=== PATIENT | female | born 1945 | race Caucasian/White ===

== ENCOUNTER 2023-08-23 06:52 | Outpatient (REF) | payer MEDICARE, SELFPAY ==
[2023-08-23 09:49] LABS: Alanine Aminotransferase 23 U/L (14-59); Albumin Globulin Ratio 0.3; Albumin Level 1.7 g/dL (3.4-5.0); Alkaline Phosphatase 83 U/L (46-116); Anion Gap 14.5; Aspartate Amino Transferase 25 U/L (15-37); Bilirubin Total 0.3 mg/dL (0.2-1.0); Calcium 8.8 mg/dL (8.5-10.1); Carbon Dioxide 24.8 mmol/L (21.0-32.0); Chloride 104 mmol/L (98-107); Estimated GFR (African America 29 (>=60); Estimated GFR (Non-African Ame 24 (>=60); Globulin 4.9 g/dL; Glucose 88 mg/dL (74-106); Potassium 3.3 mmol/L (3.5-5.1); Sodium 140 mmol/L (136-145); Total Protein 6.6 g/dL (6.4-8.2)
[2023-08-23 11:20] LABS: Basophils Absolute Auto 0.1 10^3/uL (0.0-0.1); Basophils Percent Auto 0.4 % (0.2-2.0); Eosinophils Absolute Auto 0.2 10^3/uL (0.0-0.7); Eosinophils Percent Auto 0.8 % (0.9-7.0); Hematocrit 33.5 % (36.0-48.0); Hemoglobin 9.8 g/dL (12.0-16.0); Immature Granulocytes Abs Auto 0.36 10^3/uL (0.00-0.03); Immature Granulocytes Pct Auto 1.8 % (0.0-0.5); Lymphocytes Percent Auto 14.7 % (20.5-60.0); Mean Corpuscular HGB Conc 29.3 g/dL (29.9-35.2); Mean Corpuscular Hemoglobin 27.5 pg (26.7-34.0); Mean Corpuscular Volume 93.8 fL (81.0-99.0); Mean Platelet Volume 10.6 fL (9.5-13.5); Monocytes Absolute Auto 1.5 10^3/uL (0.3-0.8); Monocytes Percent Auto 7.2 % (1.7-12.0); Neutrophils Absolute Auto 15.3 10^3/uL (1.4-6.5); Neutrophils Percent Auto 75.1 % (43.0-75.0); Platelet Count 369 10^3/uL (150-450); Red Blood Count 3.57 10^6/uL (4.20-5.40); Red Cell Distribution Width 16.7 % (11.0-15.0); White Blood Count 20.4 10^3/uL (4.0-11.0)
== END 2023-08-23 06:53 | disposition home or self-care (01) ==
LOC: LAB 06:52
PROVIDERS: Visit Provider Family Medicine
DX: D64.9 Anemia, unspecified (principal); I10 Essential (primary) hypertension
CPT/HCPCS: 36415; 80053; 85025

== ENCOUNTER 2023-08-26 00:56 | Outpatient (REF) | payer MEDICARE, SELFPAY ==
[2023-08-26 07:56] LABS: Basophils Absolute Auto 0.1 10^3/uL (0.0-0.1); Basophils Percent Auto 0.6 % (0.2-2.0); Eosinophils Absolute Auto 0.1 10^3/uL (0.0-0.7); Eosinophils Percent Auto 0.7 % (0.9-7.0); Hemoglobin 9.5 g/dL (12.0-16.0); Immature Granulocytes Abs Auto 0.45 10^3/uL (0.00-0.03); Immature Granulocytes Pct Auto 3.2 % (0.0-0.5); Lymphocytes Absolute Auto 2.9 10^3/uL (1.2-3.8); Lymphocytes Percent Auto 20.1 % (20.5-60.0); Mean Corpuscular HGB Conc 31.7 g/dL (29.9-35.2); Mean Corpuscular Hemoglobin 27.6 pg (26.7-34.0); Mean Corpuscular Volume 87.2 fL (81.0-99.0); Mean Platelet Volume 9.9 fL (9.5-13.5); Monocytes Absolute Auto 1.4 10^3/uL (0.3-0.8); Monocytes Percent Auto 9.5 % (1.7-12.0); Neutrophils Absolute Auto 9.4 10^3/uL (1.4-6.5); Neutrophils Percent Auto 65.9 % (43.0-75.0); Platelet Count 425 10^3/uL (150-450); Red Blood Count 3.44 10^6/uL (4.20-5.40); White Blood Count 14.2 10^3/uL (4.0-11.0)
[2023-08-26 08:29] LABS: Alanine Aminotransferase 17 U/L (14-59); Albumin Globulin Ratio 0.3; Albumin Level 1.7 g/dL (3.4-5.0); Alkaline Phosphatase 88 U/L (46-116); Anion Gap 13.4; Aspartate Amino Transferase 19 U/L (15-37); BUN Creatinine Ratio 17.8; Bilirubin Total 0.4 mg/dL (0.2-1.0); Calcium 8.3 mg/dL (8.5-10.1); Carbon Dioxide 25.9 mmol/L (21.0-32.0); Chloride 104 mmol/L (98-107); Estimated GFR (African America 46 (>=60); Estimated GFR (Non-African Ame 38 (>=60); Glucose 77 mg/dL (74-106); Potassium 4.3 mmol/L (3.5-5.1); Sodium 139 mmol/L (136-145); Total Protein 6.7 g/dL (6.4-8.2)
== END 2023-08-26 00:57 | disposition home or self-care (01) ==
LOC: LAB 00:56
PROVIDERS: Visit Provider Family Medicine
DX: N18.30 Chronic kidney disease, stage 3 unspecified (principal)
CPT/HCPCS: 36415; 80053; 85025

== ENCOUNTER 2023-08-28 10:59 | Inpatient (IN) | payer MEDICARE, SELFPAY ==
[2023-08-28] VITALS (59 sets, daily range): BP systolic 82–116; BP diastolic 44–97; PULSE 98–143; RESP 14–34; TEMP 36.5–37; O2SAT 66–98; BMI 33.2
--- NOTE | 2023-08-28 11:09 | XR_ITS ---
The [address] [address] Patient Name: GERA PERDUE MRN: [id number] date: 1945 Sex: F Assigned Patient Location: ER Current Patient Location: ER Accession/Order Number: [id number] Exam Date: 08/28/2023 11:14 Report Date: 08/28/2023 11:41 At the request of: EUGENIA STANLEY Procedure: XR chest 1V EXAMINATION: XR chest 1V HISTORY: hypotension COMPARISON: No relevant comparison available. TECHNIQUE: AP portable FINDINGS: LUNGS: No significant pulmonary parenchymal abnormalities. VASCULATURE: No increased pulmonary vasculature. PLEURA: No pneumothorax, effusion, or pleural thickening. CARDIAC: No cardiomegaly or cardiac silhouette abnormality. MEDIASTINUM: No visible mass or adenopathy. Aortic atherosclerosis BONES: Contour deformity of the right humeral head and neck suggesting chronic fracture OTHER: Negative. XR/XR chest 1V IMPRESSION: No acute cardiopulmonary process Electronically authenticated by: NATHANIEL BOYLE Date: 08/28/2023 11:41
--- NOTE | 2023-08-28 11:09 | ECG_ITS ---
The [facility] Test Date: 2023-08-28 Pat Name: GERA PERDUE Department: Room: - Gender: Female [employer]: : 1945 Requested By: [id number] Order Number: [id number] Reading MD: CARLOS MANUEL LANGLEY Measurements Intervals [place] Rate: 113 P: 72 MS: 136 QRS: 42 QRSD: 66 T: 69 QT: 306 QTc: 373 Interpretive Statements 1120 Sinus tachycardia 8102 Low QRS voltage in chest leads 9140 abnormal rhythm ECG No previous ECG available for comparison Electronically Signed On 08-29-2023 7:08:28 EDT by CARLOS MANUEL LANGLEY
[2023-08-28 11:29] LABS: Hematocrit 30.2 % (36.0-48.0); Hemoglobin 9.5 g/dL (12.0-16.0); Mean Corpuscular HGB Conc 31.5 g/dL (29.9-35.2); Mean Corpuscular Hemoglobin 27.9 pg (26.7-34.0); Mean Corpuscular Volume 88.8 fL (81.0-99.0); Mean Platelet Volume 9.6 fL (9.5-13.5); Platelet Count 493 10^3/uL (150-450); Red Cell Distribution Width 16.4 % (11.0-15.0); White Blood Count 20.2 10^3/uL (4.0-11.0)
[2023-08-28 11:31] LABS: INR 1.09; Prothrombin Time 11.5 sec (9.0-11.6)
[2023-08-28 11:40] LABS: Alanine Aminotransferase 18 U/L (14-59); Albumin Globulin Ratio 0.3; Albumin Level 1.8 g/dL (3.4-5.0); Alkaline Phosphatase 104 U/L (46-116); Anion Gap 14.4; Aspartate Amino Transferase 20 U/L (15-37); BUN Creatinine Ratio 14.9; Bilirubin Total 0.3 mg/dL (0.2-1.0); Calcium 7.9 mg/dL (8.5-10.1); Carbon Dioxide 24.4 mmol/L (21.0-32.0); Chloride 101 mmol/L (98-107); Estimated GFR (African America 26 (>=60); Estimated GFR (Non-African Ame 22 (>=60); Globulin 5.5 g/dL; Glucose 90 mg/dL (74-106); Potassium 4.8 mmol/L (3.5-5.1); Sodium 135 mmol/L (136-145); Total Protein 7.3 g/dL (6.4-8.2)
[2023-08-28 11:44] LABS: SARS-CoV-2 Ag NEGATIVE (NEGATIVE)
[2023-08-28 11:46] LABS: Lactate/Lactic Acid 2.1 mmol/L (0.4-2.0); Magnesium 0.7 mg/dL (1.8-2.4)
[2023-08-28 11:47] LABS: Band Neutrophils Absolute 0.2 10^3/uL (0.0-0.3); Lymphocytes Absolute Manual 2.62 10^3/uL (1.20-3.80); Monocytes Absolute Manual 2.02 10^3/uL (0.30-0.80); Segmented Neut Absolute Manual 14.94 10^3/uL (1.4-6.5)
--- NOTE | 2023-08-28 11:47 | ED_ITS ---
HPI - General Adult General Chief complaint: Weakness Stated complaint: Hypotension Time Seen by Provider: 08/28/23 11:08 Source: patient Mode of arrival: ambulance History of Present Illness HPI narrative: Coming to us after she was found to be hypoxemic and hypotensive by his [place] [facility] facility staff, it was noted that the patient was just within the last few weeks had left hip replacement The patient main concern upon presentation of shortness of breath and cough no abdominal pain no nausea no vomiting She has been using oxygen although she does not usually use oxygen at baseline Related Data Home Medications Medication Instructions Recorded Confirmed albuterol sulfate 90 mcg/actuation 2 puff inhalation Q4H 08/28/23 08/28/23 aerosol inhaler alendronate 70 mg tablet 70 mg PO Q24H 08/28/23 08/28/23 atorvastatin 40 mg tablet 40 mg PO Q24H 08/28/23 08/28/23 bupropion HCl 300 mg 24 hr tablet, 300 mg PO Q24H 08/28/23 08/28/23 extended release clopidogrel 75 mg tablet 75 mg PO Q24H 08/28/23 08/28/23 furosemide 40 mg tablet 60 mg PO Q24H 08/28/23 08/28/23 lisinopril 5 mg tablet 5 mg PO Q24H 08/28/23 08/28/23 metoprolol succinate 50 mg 50 mg PO Q12H 08/28/23 08/28/23 tablet,extended release 24 hr pantoprazole 40 mg tablet,delayed 40 mg PO Q12H 08/28/23 08/28/23 release paroxetine HCl 40 mg tablet 40 mg PO Q24H 08/28/23 08/28/23 prednisone 20 mg tablet 20 mg PO Q12H 08/28/23 08/28/23 pregabalin 75 mg capsule 75 mg PO Q12H 08/28/23 08/28/23 Allergies Allergy/AdvReac Type Severity Reaction Status Date / Time No Known Drug Allergies Allergy Verified 08/28/23 11:05 Review of Systems ROS Status of ROS 10 or more systems reviewed and unremarkable except as noted in history and below Exam Narrative Exam Narrative: Nurses notes and vital signs reviewed and patient is not hypoxic. General: Well-appearing and in no apparent distress. Skin: Warm, dry, no pallor noted. No rash. Head: Normocephalic, atraumatic. Neck: Supple, non-tender. Eye: Pupils are equal, round and EOMI. No scleral icterus. Ears, Nose, Mouth, and Throat: TM are clear, no nasal mucosal hypertrophy. Oral mucosa is moist, no posterior oropharynx erythema, uvula is mid-line Cardiovascular: Regular Rate and Rhythm without murmur, gallop or rub. Respiratory: No accessory muscle use or respiratory distress. Lungs the patient have decreased entry in the bases with rhonchi heard in both lung felipe. Chest Wall: no tenderness Back: No midline thoracic or lumbar vertebral tenderness. No CVA tenderness Musculoskeletal: Bilateral leg edema 1+ pitting until the level of the knee. GI: Abdomen is soft, non-distended. Normal bowel sounds. No masses appreciated. No tenderness to palpation. No rebound, guarding, or rigidity noted. Neurological: A&O x4. No cranial nerve dysfunction observed. No truncal ataxia. Moves all extremities. Sensation intact. Psychiatric: Cooperative and interactive. Normal mood and affect. Constitutional Vital Signs, click to edit/add: Last Vital Signs Temp 98.6 F 08/28/23 11:00 Pulse 103 H 08/28/23 13:10 Resp 22 08/28/23 13:10 BP 98/59 08/28/23 12:45 Pulse Ox 87 L 08/28/23 13:10 O2 Del Method Nasal Cannula 08/28/23 12:50 O2 Flow Rate 1 08/28/23 12:50 Course Vital Signs Vital signs: Vital Signs Temperature 98.6 F 08/28/23 11:00 Pulse Rate 105 H 08/28/23 11:00 Respiratory Rate 20 08/28/23 11:00 Blood Pressure 113/51 08/28/23 11:00 Pulse Oximetry 96 08/28/23 11:00 Oxygen Delivery Method Nasal Cannula 08/28/23 11:00 Oxygen Delivery Flow Rate 2 08/28/23 11:00 Temperature 98.6 F 08/28/23 11:00 Pulse Rate 103 H 08/28/23 13:10 Respiratory Rate 22 08/28/23 13:10 Blood Pressure 98/59 08/28/23 12:45 Pulse Oximetry 87 L 08/28/23 13:10 Oxygen Delivery Method Nasal Cannula 08/28/23 12:50 Oxygen Delivery Flow Rate 1 08/28/23 12:50 Medical Decision Making MDM Narrative Medical decision making narrative: The patient EKG upon presentation showing sinus tachycardia with a heart rate of 113 Her blood pressure was 90 systolic almost when she arrived to us her lactic acid was 2.1 she had leukocytosis of 22 The source right now seem to be diarrhea and infection as well as possibly the lung she also was provided with 1 dose of Solu-Medrol and her CT chest showed that the patient have groundglass opacities The patient also had a history of recent surgery although there is more details need to be obtained from [facility] the patient will be provided with 1 dose of Lovenox as she have acute kidney injury She also have high for magnesium Enma and she was provided with 1 dose of 1 g of magnesium over 20 minutes in addition to another 2 g over an hour The patient right now will be treated for possible PE as well but VQ scan will be addressed upon her admission Patient was started on sepsis protocol with IV fluid according to the 30 cc/kg and the patient also had a Zosyn and meropenem after the urine infection was found to be another source of infection Initially possible CHF was suspected but with the patient obvious sepsis she will be covered with IV fluid at the moment with caution The patient case was discussed with Dr. Mcfarland he agreed with above-mentioned plan Lab Data Labs: Lab Results 08/28/23 08/28/23 Range/Units 11:00 13:45 WBC 20.2 H (4.0-11.0) 10^3/uL RBC 3.40 L (4.20-5.40) 10^6/uL Hgb 9.5 L (12.0-16.0) g/dL Hct 30.2 L (36.0-48.0) % MCV 88.8 (81.0-99.0) fL MCH 27.9 (26.7-34.0) pg MCHC 31.5 (29.9-35.2) g/dL RDW 16.4 H (11.0-15.0) % Plt Count 493 H (150-450) 10^3/uL MPV 9.6 (9.5-13.5) fL Seg Neuts % (Manual) 74.0 Band Neutrophils % 1.0 (0-5) % Lymphocytes % (Manual) 13.0 L (20.5-60.0) % Monocytes % (Manual) 10.0 (1.7-12.0) % Eosinophils % (Manual) 1.0 (0.9-7.0) % Basophils % (Manual) 1.0 (0.2-2.0) % Neutrophils # (Manual) 14.94 H (1.4-6.5) 10^3/uL Band Neutrophils # 0.2 (0.0-0.3) 10^3/uL Lymphocytes # (Manual) 2.62 (1.20-3.80) 10^3/uL Monocytes # (Manual) 2.02 H (0.30-0.80) 10^3/uL Eosinophils # (Manual) 0.20 (0.00-0.70) 10^3/uL Basophils # (Manual) 0.20 H (0.00-0.10) 10^3/uL PT 11.5 (9.0-11.6) sec INR 1.09 Sodium 135 L (136-145) mmol/L Potassium 4.8 (3.5-5.1) mmol/L Chloride 101 (98-107) mmol/L Carbon Dioxide 24.4 (21.0-32.0) mmol/L Anion Gap 14.4 BUN 33.0 H (7.0-18.0) mg/dL Creatinine 2.21 H (0.55-1.02) mg/dL Est GFR ( Amer) 26 L (>=60) Est GFR (Non-Af Amer) 22 L (>=60) BUN/Creatinine Ratio 14.9 Glucose 90 (74-106) mg/dL Lactate 2.1 H (0.4-2.0) mmol/L Calcium 7.9 L (8.5-10.1) mg/dL Magnesium 0.7 L* (1.8-2.4) mg/dL Total Bilirubin 0.3 (0.2-1.0) mg/dL AST 20 (15-37) U/L ALT 18 (14-59) U/L Alkaline Phosphatase 104 (46-116) U/L Troponin I High Sens 12.0 (4.0-51.3) pg/mL NT-Pro-B Natriuret Pep 553.0 (<=1800.0) pg/mL Total Protein 7.3 (6.4-8.2) g/dL Albumin 1.8 L (3.4-5.0) g/dL Globulin 5.5 g/dL Albumin/Globulin Ratio 0.3 Urine Color Lt. yellow (YELLOW) Urine Clarity Sl cloudy (CLEAR) Urine pH 5.5 (5.0-9.0) Ur Specific [place] 1.020 (1.005-1.025) Urine Protein Negative (NEG/TRACE) mg/dL Urine Glucose (UA) Negative (NEGATIVE) mg/dL Urine Ketones Negative (NEGATIVE) mg/dL Urine Occult Blood Large A (NEGATIVE) Urine Nitrite Positive A (NEGATIVE) Urine Bilirubin Negative (NEGATIVE) Urine Urobilinogen 0.2 (0.2-1.0) EU/dL Ur Leukocyte Esterase Large A (NEGATIVE) SARS-CoV-2 (PCR) Negative (NEGATIVE) Discharge Plan Discharge Chief Complaint: Weakness Clinical Impression: Acute kidney failure, Hypoxemia, Sepsis, Hypomagnesemia Patient Disposition: Admitted As Inpatient Time of Disposition Decision: 14:31
--- NOTE | 2023-08-28 11:54 | CT_ITS ---
The [address] [address] Patient Name: GERA PERDUE MRN: [id number] date: 1945 Sex: F Assigned Patient Location: ER Current Patient Location: ER Accession/Order Number: [id number] Exam Date: 08/28/2023 12:23 Report Date: 08/28/2023 13:05 At the request of: EUGENIA STANLEY Procedure: CT chest wo con CT chest without contrast CLINICAL: Hypertension and low pulse ox 80%, cough, evaluate for pneumonia TECHNIQUE: Computed tomography of the chest was performed without intravenous contrast. Dose reduction: mA and/or kV are adjusted by automated exposure control software based on patient size. FINDINGS: Comparison: None. Examination is respiratory motion degraded. There is right greater than left posterior lower lobe atelectasis. Small area of very minimal groundglass opacities in the right upper lobe near the apex may be related to chronic small airways disease versus mild pneumonitis. No significant consolidation. No effusion or pneumothorax. There are some secretions within the trachea and right mainstem bronchus. Shotty paratracheal lymph node at the level of aortic arch (image 32 series 3) is 1.1 x 0.8 cm. Subaortic lymph node (image 35 series 3) is 0.8 x 0.8 cm. There is thoracic aortic atherosclerosis without thoracic aortic aneurysm. There are aortic valvular and coronary artery calcifications, with normal heart size. Limited imaging of upper abdomen demonstrates atherosclerosis of the abdominal aorta and splenic artery. No acute process seen in the visualized upper abdomen. There are degenerative changes of the spine. Moderate to severe compression fracture involves C7. Minimal superior plate compression fractures from T1 through T4, and also a mild to moderate superior endplate compression fracture of T10. CT/CT chest wo con IMPRESSION: 1. Respiratory motion degraded examination with bibasilar atelectasis. Mild secretions in the trachea and right mainstem bronchus. Small area of very minimal groundglass opacities in the right upper lobe near the apex may be related to chronic small airways disease versus mild pneumonitis. Otherwise, the lungs are clear. No significant consolidation. No effusion. 2. Negative for thoracic lymphadenopathy. 3. Coronary artery calcifications and thoracic aortic atherosclerosis with normal heart size. 4. Compression fractures of C7, T1-T4, and T10. Additional incidental findings discussed above. Electronically authenticated by: MIN INGRAM Date: 08/28/2023 13:05
[2023-08-28] MEDS: MAGNESIUM SULFATE IN WATER 2 GM/50 ML PREMIX IV (12:10)
[2023-08-28] MEDS: METHYLPREDNISOLONE SOD SUCC PF 125 MG/2 ML VIAL IVP (12:11)
[2023-08-28] MEDS: PIPERACILLIN SODIUM/TAZOBACTAM 3.375 GM in 0.9 % SODIUM CHLORIDE 50 ML IV ×2 (12:11→23:56)
[2023-08-28] MEDS: OXYCODONE HCL/ACETAMINOPHEN 5MG/325MG 1 TAB PO (12:33)
[2023-08-28] MEDS: MAGNESIUM SULFATE/D5W 1 GM/100 ML PIGGYBACK IV (12:35)
[2023-08-28] MEDS: IPRATROPIUM/ALBUTEROL SULFATE 3 ML AMPUL.NEB IH (12:49)
[2023-08-28] MEDS: 0.9 % SODIUM CHLORIDE 1,000 ML 500 ML IV (13:04)
--- NOTE | 2023-08-28 13:42 | US_ITS ---
The [address] [address] Patient Name: GERA PERDUE MRN: [id number] date: 1945 Sex: F Assigned Patient Location: ER Current Patient Location: ER Accession/Order Number: [id number] Exam Date: 08/28/2023 13:48 Report Date: 08/28/2023 14:46 At the request of: EUGENIA STANLEY Procedure: US venous doppler LE BI Ultrasound venous duplex scan, bilateral lower extremities CLINICAL: Bilateral leg edema. TECHNIQUE: Sweeney-scale, color-flow, and Doppler examination of both legs was performed with and without provocative maneuvers. FINDINGS: Comparison: None. Sonographic examination of both lower extremity deep venous systems to include the common femoral veins, superficial femoral veins, and popliteal veins demonstrates normal compressibility, color-flow, phasic variation, and augmentation. The origins of the greater saphenous veins on both sides demonstrate normal compression, with normal color-flow at the origins of the proximal profunda femoris veins. There is normal compression of the right peroneal posterior tibial veins. The left posterior tibial vein also demonstrates normal compression but left peroneal vein is not well seen. Normal compression of the small saphenous veins in both calves. There is a small fluid collection in the deep soft tissues of the left groin measuring 5.4 x 3.0 x 1.5 cm. There is mild subcutaneous edema of the both calves. US/US venous doppler LE BI IMPRESSION: 1. No sonographic evidence of deep venous thrombosis in either lower extremity. 2. Nonspecific 5.4 x 3.0 x 1.5 cm left groin fluid collection and mild subcutaneous edema of both calves. Electronically authenticated by: MIN INGRAM Date: 08/28/2023 14:46
[2023-08-28 14:10] LABS: Bilirubin Urine NEGATIVE (NEGATIVE); Blood Urine LARGE (NEGATIVE); Clarity Urine SL CLOUDY (CLEAR); Color Urine LT. YELLOW (YELLOW); Glucose Urine UA NEGATIVE (NEGATIVE); Ketones Urine NEGATIVE (NEGATIVE); Leukocyte Esterase Urine LARGE (NEGATIVE); Nitrite Urine POSITIVE (NEGATIVE); Protein Urine NEGATIVE (NEG/TRACE); Urobilinogen Urine 0.2 EU/dL (0.2-1.0); pH Urine 5.5 (5.0-9.0)
[2023-08-28 14:13] LABS: Urine Microscopic Indicated YES
[2023-08-28] MEDS: ENOXAPARIN SODIUM 80 MG/0.8 ML SYRINGE 77 MG SUBQ (14:20)
[2023-08-28 14:39] LABS: Bacteria Urine LARGE #/HPF (NONE SEEN)
[2023-08-28] MEDS: IMIPENEM/CILASTATIN SODIUM 1,000 MG in 0.9 % SODIUM CHLORIDE 100 ML 100 MG IV (14:39)
[2023-08-28 14:40] LABS: Cast Seen? NONE SEEN #/LPF (NONE SEEN); Crystals Seen? None Seen #/HPF (None Seen); Mucus Urine NONE SEEN (NONE SEEN); Squamous Epithelial Cell Urine MODERATE #/LPF (NONE/RARE); Urine Culture Indicated YES
[2023-08-28 15:23] LABS: Lactate/Lactic Acid 1.3 mmol/L (0.4-2.0)
[2023-08-28] MEDS: LACTATED RINGER'S SOLUTION 1,000 ML 100 ML IV (17:17)
[2023-08-28] MEDS: LEVOFLOXACIN IN DEXTROSE 5 % 750 MG/150 ML IV.SOLN 100 MG IV (19:19)
[2023-08-28] MEDS: ALBUTEROL SULFATE 2.5 MG/3 ML VIAL NEB IH ×2 (19:54→23:28)
[2023-08-28] MEDS: ATORVASTATIN CALCIUM 40 MG TABLET PO (21:01)
[2023-08-29] VITALS (125 sets, daily range): BP systolic 87–120; BP diastolic 45–75; PULSE 91–129; RESP 12–39; TEMP 36.1–36.9; O2SAT 88–100
[2023-08-29] MEDS: ALBUTEROL SULFATE 2.5 MG/3 ML VIAL NEB IH ×3 (03:58→10:56)
[2023-08-29] MEDS: LACTATED RINGER'S SOLUTION 1,000 ML 100 ML IV (04:00)
[2023-08-29] MEDS: OMEPRAZOLE 40 MG CAPSULE.DR PO (05:34)
[2023-08-29 05:55] LABS: Basophils Percent Auto 0.1 % (0.2-2.0); Hemoglobin 7.9 g/dL (12.0-16.0); Immature Granulocytes Abs Auto 0.35 10^3/uL (0.00-0.03); Immature Granulocytes Pct Auto 2.3 % (0.0-0.5); Lymphocytes Absolute Auto 1.3 10^3/uL (1.2-3.8); Lymphocytes Percent Auto 8.3 % (20.5-60.0); Mean Corpuscular HGB Conc 30.4 g/dL (29.9-35.2); Mean Corpuscular Hemoglobin 27.1 pg (26.7-34.0); Mean Corpuscular Volume 89.3 fL (81.0-99.0); Mean Platelet Volume 9.5 fL (9.5-13.5); Monocytes Absolute Auto 0.9 10^3/uL (0.3-0.8); Monocytes Percent Auto 5.7 % (1.7-12.0); Neutrophils Percent Auto 83.6 % (43.0-75.0); Platelet Count 418 10^3/uL (150-450); Red Blood Count 2.91 10^6/uL (4.20-5.40); Red Cell Distribution Width 16.2 % (11.0-15.0); White Blood Count 15.5 10^3/uL (4.0-11.0)
[2023-08-29 06:15] LABS: Alanine Aminotransferase 14 U/L (14-59); Albumin Globulin Ratio 0.3; Albumin Level 1.4 g/dL (3.4-5.0); Alkaline Phosphatase 88 U/L (46-116); Anion Gap 12.9; Aspartate Amino Transferase 17 U/L (15-37); BUN Creatinine Ratio 15.6; Bilirubin Total 0.2 mg/dL (0.2-1.0); Calcium 7.4 mg/dL (8.5-10.1); Carbon Dioxide 23.8 mmol/L (21.0-32.0); Chloride 108 mmol/L (98-107); Estimated GFR (African America 33 (>=60); Estimated GFR (Non-African Ame 27 (>=60); Globulin 4.8 g/dL; Glucose 115 mg/dL (74-106); Magnesium 1.5 mg/dL (1.8-2.4); Potassium 4.7 mmol/L (3.5-5.1); Sodium 140 mmol/L (136-145); Total Protein 6.2 g/dL (6.4-8.2)
--- NOTE | 2023-08-29 09:04 | CT_ITS ---
The [address] [address] Patient Name: GERA PERDUE MRN: [id number] date: 1945 Sex: F Assigned Patient Location: ICU Current Patient Location: ICU Accession/Order Number: [id number] Exam Date: 08/29/2023 08:48 Report Date: 08/29/2023 09:25 At the request of: CARMEN GOMEZ Procedure: CT angio chest CT angio chest, 08/29/2023 8:48 AM EDT INDICATION: SOB, tachycardia COMPARISON: Prior CT of the chest dated 08/28/2023 TECHNIQUE: Axial low-dose images of 1 millimeters are obtained from the thoracic outlet with contrast . 3-D MIP images were obtained. Dose reduction techniques were achieved by using automated exposure control and/or adjustment of mA and/or kV according to patient size and/or use of iterative reconstruction technique. FINDINGS: No endoluminal filling defect within the main pulmonary arteries, lobar and lobular branches is noted. There is no obvious right ventricle strain. Mild centrilobular emphysematous changes are noted. There is interval improvement in the right upper lobe groundglass opacity. The right sided pleural thickening/adjacent atelectasis is more prominent and indistinct this study. The central tracheobronchial tree is unremarkable. No mediastinal lymph node enlargement by size criteria is noted. No pleural or pericardial effusion is noted. The visualized portions of the solid abdominal organs are unremarkable. Bone: There is no suspicious osteolytic or osteoblastic lesion. Stable compression fracture of, C7, T4 and T10. There is diffuse demineralization of bone. CT/CT angio chest IMPRESSION: No PE in the current study. Interval improvement in the right upper lobe groundglass opacity. Electronically authenticated by: CORNELIA COLIN Date: 08/29/2023 09:25
[2023-08-29] MEDS: METOPROLOL SUCCINATE 50 MG TAB.ER.24H PO (09:24)
[2023-08-29] MEDS: FUROSEMIDE 40 MG TABLET PO (09:24)
[2023-08-29] MEDS: PREGABALIN 75 MG CAPSULE PO ×2 (09:24→21:34)
[2023-08-29] MEDS: BUPROPION HCL 150 MG XL TABLET 24H 300 MG PO (09:24)
[2023-08-29] MEDS: CLOPIDOGREL BISULFATE 75 MG TABLET PO (09:24)
[2023-08-29] MEDS: PREDNISONE 20 MG TABLET PO (09:24)
[2023-08-29] MEDS: ENOXAPARIN SODIUM 30 MG/0.3 ML SYRINGE SUBQ (09:24)
[2023-08-29] MEDS: PAROXETINE HCL 20 MG TABLET 40 MG PO (09:24)
[2023-08-29] MEDS: CALCIUM GLUC IN NACL, ISO-OSM 1 GM/50 ML PLAST..BAG IV ×2 (09:30→10:00)
--- NOTE | 2023-08-29 09:37 | SWNOTE1 ---
SW received message from [facility] and pt is there skilled and will need precert to return. SW notified case management.
[2023-08-29] MEDS: MAGNESIUM SULFATE IN WATER 2 GM/50 ML PREMIX IV (10:27)
--- NOTE | 2023-08-29 11:03 | RESP.RT ---
titrated down to 1L
--- NOTE | 2023-08-29 11:06 | P.HP_ITS ---
H&P: HPI History of Present Illness Chief complaint: Weakness, decreased BP Narrative: 77 y/o female sent from SNF with weakness and low BP. History of COPD and c/o cough and SOB for several days. On prednisone and inhalers. Doesn't wear home O2 but started at SNF. Increased weakness and to ER. BP low and pulse elevated. Labs showed ARTURO and low magnesium. Covid and chest x-ray negative. CT chest negative. UA showed UTI. Admitted for treatment. Started levaquin and zosyn for UTI and sepsis. Started IV fluids. Worsening hypoxia and increased oxygen. Feels better this am. Continued SOB but not as bad. Review of Systems ROS Constitutional Denies: fever, chills or night sweats Cardiovascular Denies: chest pain, palpitations or edema Respiratory Reports: shortness of breath, cough and wheezing Gastrointestinal Denies: abdominal pain, nausea, vomiting or diarrhea Genitourinary Denies: painful urination [facility] Medical History (Updated 08/29/23 @ 10:57 by Remington Mcfarland MD) COPD (chronic obstructive pulmonary disease) ?J44.9 - Chronic obstructive pulmonary disease, unspecified (ICD-10) ARMAND (obstructive sleep apnea) ?G47.33 - Obstructive sleep apnea (adult) (pediatric) (ICD-10) Surgical History (Updated 08/28/23 @ 16:24 by Sonia Christianson) History of colon surgery ?Z98.890 - Other specified postprocedural states (ICD-10) Social History Highest level of school completed/degree received: 11th grade Meds Home Medications and Allergies Home Medications Medication Instructions Recorded Confirmed Type albuterol sulfate 90 mcg/actuation 2 puff inhalation Q4H 08/28/23 08/28/23 History aerosol inhaler alendronate 70 mg tablet 70 mg PO Q7D 08/28/23 08/28/23 History atorvastatin 40 mg tablet 40 mg PO .QHS 08/28/23 08/28/23 History bupropion HCl 300 mg 24 hr tablet, 300 mg PO QDAY 08/28/23 08/28/23 History extended release cholecalciferol (vitamin D3) 50 50 mcg PO DAILY 08/28/23 08/28/23 History mcg (2,000 unit) tablet clopidogrel 75 mg tablet 75 mg PO DAILY 08/28/23 08/28/23 History fluticasone fur. 100 mcg-umeclid 1 inh inhalation DAILY 08/28/23 08/28/23 History 62.5 mcg-vilant 25 mcg inhalat.powder (Trelegy Ellipta) furosemide 40 mg tablet 40 mg PO QAM 08/28/23 08/28/23 History lisinopril 5 mg tablet 5 mg PO QAM 08/28/23 08/28/23 History metoprolol succinate 50 mg 50 mg PO QAM 08/28/23 08/28/23 History tablet,extended release 24 hr nystatin 100,000 unit/gram topical 1 applic topical BID 08/28/23 08/28/23 History powder (Nyamyc) pantoprazole 40 mg tablet,delayed 40 mg PO QAM 08/28/23 08/28/23 History release paroxetine HCl 40 mg tablet 40 mg PO QAM 08/28/23 08/28/23 History potassium chloride 10 mEq 20 meq PO DAILY 08/28/23 08/28/23 History tablet,extended release (Klor-Con) prednisone 20 mg tablet 20 mg PO QDAY 08/28/23 08/28/23 History pregabalin 75 mg capsule 75 mg PO Q12H 08/28/23 08/28/23 History triamcinolone acetonide 0.1 % 1 applic topical BID 08/28/23 08/28/23 History topical cream (Triderm) Allergies Allergy/AdvReac Type Severity Reaction Status Date / Time No Known Drug Allergies Allergy Verified 08/28/23 11:05 Exam Constitutional Vital Signs, click to edit/add: Last Vital Signs Temp 97 F L 08/29/23 03:04 Pulse 115 H 08/29/23 09:00 Resp 25 H 08/29/23 08:00 BP 120/52 08/29/23 07:30 Pulse Ox 94 L 08/29/23 08:00 O2 Del Method Nasal Cannula 08/29/23 07:10 O2 Flow Rate 1.5 08/29/23 07:10 Documenting provider has reviewed patient's vital signs: yes Common normals: no apparent distress, oriented x3 and alert HENMT Common normals: normocephalic Eye Common normals: PERRL and EOMs intact bilaterally Respiratory Common normals: normal respiratory effort Auscultation: wheezes expiratory wheezes and diminished lung sounds Cardio Common normals: regular rate, regular rhythm, no gallops, no murmurs and no rub GI Common normals: Normal to inspection, nondistended, normoactive bowel sounds present and non-tender Extremity Common normals: no pedal edema Results Labs Labs: Short CBC 08/28/23 08/29/23 Range/Units 11:00 05:35 WBC 20.2 H 15.5 H (4.0-11.0) 10^3/uL Hgb 9.5 L 7.9 L (12.0-16.0) g/dL Hct 30.2 L 26.0 L (36.0-48.0) % Plt Count 493 H 418 (150-450) 10^3/uL BMP 08/28/23 08/29/23 11:00 05:35 Sodium 135 L 140 Potassium 4.8 4.7 Chloride 101 108 H Carbon Dioxide 24.4 23.8 BUN 33.0 H 28.0 H Creatinine 2.21 H 1.79 H Glucose 90 115 H Calcium 7.9 L 7.4 L Liver Function 08/28/23 08/29/23 Range/Units 11:00 05:35 Total Bilirubin 0.3 0.2 (0.2-1.0) mg/dL AST 20 17 (15-37) U/L ALT 18 14 (14-59) U/L Alkaline Phosphatase 104 88 (46-116) U/L Albumin 1.8 L 1.4 L (3.4-5.0) g/dL Urine 08/28/23 Range/Units 13:45 Urine Color Lt. yellow (YELLOW) Urine Clarity Sl cloudy (CLEAR) Urine pH 5.5 (5.0-9.0) Ur Specific [place] 1.020 (1.005-1.025) Urine Protein Negative (NEG/TRACE) mg/dL Urine Glucose (UA) Negative (NEGATIVE) mg/dL Pulse Oximetry Attestation: I have reviewed the pertinent pulse oximetry results. Imaging CT scan - chest: Attestation: I have reviewed the pertinent imaging results. Assessment and Plan Assessment and Plan (1) UTI (urinary tract infection): (2) Sepsis: (3) Acute exacerbation of COPD with asthma: (4) Hypoxemia: (5) Tachycardia: (6) Acute kidney failure: (7) Hypomagnesemia: (8) HTN (hypertension): Plan Continue antibiotics for UTI. BP improved and decrease fluids. BS decreased and wheezing, CTA normal. Add solu-medrol and DuoNeb for COPD and wean O2 as tolerated. Resumed home medication. Replace electrolytes. Start PT/OT for weakness. Will need 2-3 days in the hospital.
[2023-08-29] MEDS: PIPERACILLIN SODIUM/TAZOBACTAM 3.375 GM in 0.9 % SODIUM CHLORIDE 50 ML IV (11:21)
--- NOTE | 2023-08-29 11:24 | SWNOTE1 ---
SW sent over updates and let [facility] know to start precert.
--- NOTE | 2023-08-29 11:37 | CM.NOTE ---
Rounds made with Dr. Mcfarland, no discharge today. Pt will be a precert to go back to [facility] skilled therapy.
--- NOTE | 2023-08-29 11:46 | CM.NOTE ---
Important Message From Medicare discussed with pt, pt verbalizes understanding and signs paper. Original given to pt and copy placed on pt's chart.
[2023-08-29] MEDS: IPRATROPIUM/ALBUTEROL SULFATE 3 ML AMPUL.NEB IH ×4 (15:18→23:23)
[2023-08-29 15:23] LABS: SARS-CoV-2 NAA NOT DETECTED (NOT DETECTE)
--- NOTE | 2023-08-29 15:24 | RESP.RT ---
Decreased to 1L.
--- NOTE | 2023-08-29 15:38 | SWNOTE1 ---
[facility] requesting physical therapy notes, as insurance is requesting for precert. SW called over to outpt therapy and therapist working with someone, SW let them know to have it priority for her therapy note to be documented.
[2023-08-29] MEDS: METHYLPREDNISOLONE SOD SUCC PF 125 MG/2 ML VIAL 60 MG IVP ×2 (16:18→21:34)
[2023-08-29] MEDS: LACTATED RINGER'S SOLUTION 1,000 ML 70 ML IV (21:34)
[2023-08-29] MEDS: ATORVASTATIN CALCIUM 40 MG TABLET PO (21:34)
[2023-08-30] VITALS (41 sets, daily range): BP systolic 93–134; BP diastolic 50–66; PULSE 75–109; RESP 14–27; TEMP 36.3–36.7; O2SAT 88–97
[2023-08-30] MEDS: PIPERACILLIN SODIUM/TAZOBACTAM 3.375 GM in 0.9 % SODIUM CHLORIDE 50 ML IV ×2 (00:40→11:04)
[2023-08-30 04:10] LABS: Basophils Percent Auto 0.1 % (0.2-2.0); Hematocrit 24.2 % (36.0-48.0); Hemoglobin 7.3 g/dL (12.0-16.0); Immature Granulocytes Abs Auto 0.36 10^3/uL (0.00-0.03); Immature Granulocytes Pct Auto 2.7 % (0.0-0.5); Lymphocytes Absolute Auto 1.1 10^3/uL (1.2-3.8); Lymphocytes Percent Auto 8.2 % (20.5-60.0); Mean Corpuscular HGB Conc 30.2 g/dL (29.9-35.2); Mean Corpuscular Volume 89.6 fL (81.0-99.0); Mean Platelet Volume 9.5 fL (9.5-13.5); Monocytes Absolute Auto 0.4 10^3/uL (0.3-0.8); Monocytes Percent Auto 2.7 % (1.7-12.0); Neutrophils Absolute Auto 11.7 10^3/uL (1.4-6.5); Neutrophils Percent Auto 86.3 % (43.0-75.0); Platelet Count 440 10^3/uL (150-450); Red Cell Distribution Width 16.3 % (11.0-15.0); White Blood Count 13.6 10^3/uL (4.0-11.0)
[2023-08-30] MEDS: METHYLPREDNISOLONE SOD SUCC PF 125 MG/2 ML VIAL 60 MG IVP ×3 (04:12→15:22)
[2023-08-30 04:24] LABS: Alanine Aminotransferase 14 U/L (14-59); Albumin Globulin Ratio 0.3; Albumin Level 1.5 g/dL (3.4-5.0); Alkaline Phosphatase 85 U/L (46-116); Anion Gap 10.4; Aspartate Amino Transferase 13 U/L (15-37); BUN Creatinine Ratio 15.9; Bilirubin Total 0.2 mg/dL (0.2-1.0); Calcium 8.1 mg/dL (8.5-10.1); Carbon Dioxide 25.9 mmol/L (21.0-32.0); Chloride 103 mmol/L (98-107); Estimated GFR (African America 40 (>=60); Estimated GFR (Non-African Ame 33 (>=60); Globulin 4.5 g/dL; Glucose 165 mg/dL (74-106); Potassium 4.3 mmol/L (3.5-5.1); Sodium 135 mmol/L (136-145)
[2023-08-30] MEDS: OMEPRAZOLE 40 MG CAPSULE.DR PO (06:52)
[2023-08-30] MEDS: IPRATROPIUM/ALBUTEROL SULFATE 3 ML AMPUL.NEB IH ×5 (07:11→23:19)
[2023-08-30] MEDS: PREGABALIN 75 MG CAPSULE PO (08:13)
[2023-08-30] MEDS: PAROXETINE HCL 20 MG TABLET 40 MG PO (08:13)
[2023-08-30] MEDS: ENOXAPARIN SODIUM 30 MG/0.3 ML SYRINGE SUBQ (08:13)
[2023-08-30] MEDS: METOPROLOL SUCCINATE 50 MG TAB.ER.24H PO (08:13)
[2023-08-30] MEDS: CLOPIDOGREL BISULFATE 75 MG TABLET PO (08:13)
[2023-08-30] MEDS: BUPROPION HCL 150 MG XL TABLET 24H 300 MG PO (08:13)
[2023-08-30] MEDS: FUROSEMIDE 40 MG TABLET PO (08:13)
--- NOTE | 2023-08-30 08:25 | SWNOTE1 ---
Physical therapy note sent to [facility].
[2023-08-30] MEDS: LISINOPRIL 5 MG TABLET PO (10:21)
--- NOTE | 2023-08-30 10:54 | RESP.RT ---
placed on room air
--- NOTE | 2023-08-30 11:05 | PM.PN ---
Progress Note: Subjective Subjective Interval history: Patient feels better this am. Less SOB and mild cough. Fatigue improved but continued weakness. Remains on oxygen but down to 1 LPM. Afebrile. WBC improved. Normal appetite and no emesis or diarrhea. No chesst pain or palpitations. Exam Constitutional Vital Signs, click to edit/add: Last Vital Signs Temp 97.4 F L 08/30/23 07:45 Pulse 75 08/30/23 10:00 Resp 24 08/30/23 07:35 BP 112/59 08/30/23 07:35 Pulse Ox 97 08/30/23 07:35 O2 Del Method Nasal Cannula 08/30/23 07:12 O2 Flow Rate 1 08/30/23 07:12 Documenting provider has reviewed patient's vital signs: yes Common normals: no apparent distress, oriented x3 and alert HENMT Common normals: normocephalic Eye Common normals: PERRL and EOMs intact bilaterally Respiratory Common normals: normal respiratory effort and clear to auscultation bilaterally Cardio Common normals: regular rate, regular rhythm, no gallops, no murmurs and no rub GI Common normals: Normal to inspection, nondistended, normoactive bowel sounds present and non-tender Extremity Common normals: no pedal edema Progress Note: Objective Labs Labs: Short CBC 08/30/23 Range/Units 03:54 WBC 13.6 H (4.0-11.0) 10^3/uL Hgb 7.3 L (12.0-16.0) g/dL Hct 24.2 L (36.0-48.0) % Plt Count 440 (150-450) 10^3/uL BMP 08/30/23 03:54 Sodium 135 L Potassium 4.3 Chloride 103 Carbon Dioxide 25.9 BUN 24.0 H Creatinine 1.51 H Glucose 165 H Calcium 8.1 L Liver Function 08/30/23 Range/Units 03:54 Total Bilirubin 0.2 (0.2-1.0) mg/dL AST 13 L (15-37) U/L ALT 14 (14-59) U/L Alkaline Phosphatase 85 (46-116) U/L Albumin 1.5 L (3.4-5.0) g/dL Progress Note: A&P Assessment and Plan (1) UTI (urinary tract infection): (2) Sepsis: (3) Acute exacerbation of COPD with asthma: (4) Hypoxemia: (5) Tachycardia: (6) Acute kidney failure: (7) Hypomagnesemia: (8) HTN (hypertension): Plan Patient continues to improve. Urine culture showed UTI due to K. aerogenes and sensitive to levaquin. Stop zosyn. Continue solu-medrol. Transfer to med/surg. Saline lock IV. Will need insurance approval to return to SNF. Will likely be ready for discharge tomorrow.
--- NOTE | 2023-08-30 11:29 | CM.NOTE ---
Rounds made with cristina Mohan to transfer to Med-Surg floor today. Pt will discharge to [facility] skilled when medically stable.
--- NOTE | 2023-08-30 11:54 | PT.DAILY ---
Physical Therapy Daily Note PT Daily Note/Assess Start: 08/30/23 11:50 Freq: Status: Active Protocol: Document 08/30/23 11:50 TAMIAMANDAFRANCISCO (Rec: 08/30/23 11:54 [id number]) Physical Therapy Daily Note/Assessment Time In/Time Out Time In 10:25 Time Out 10:39 Pain In Pain N/A Pain Out Pain N/A Subjective Subjective Pt sitting in BS chair upon arrival. On 1L O2 this morning . Spo2 94% prior to activity. Therapeutic Exercise Time Therapeutic Exercise Minutes (minutes) 5 Therapeutic Exercise Units 0 Therapeutic Exercise Treatment Therapeutic Exercise Treatment Seated bilat LE strengthening ex complete in BS chair 10x ea . Therapeutic Activity Time Therapeutic Activity Minutes (minutes) 8 Therapeutic Activity Units 1 Therapeutic Activity Treatment Chair Transfer Ability Contact Guard Assist Therapeutic Activity Comments Sit>stand from BS chair to [facility] for safety. Pt amb in room 2 laps for 100' total with increased time need on turns due to IV pole and O2 lines. Pt returned to BS chair upon completion with feet elevated and call light in reach. Spo2 92% with activity on 1L O2. Total Physical Therapy Time Total Therapy Minutes 13 Total Physical Therapy Units 1 Summary Daily Note Summary O2 levels stable throughout session with activity on 1L O2 . Min SOB upon completion. Increased gait endurance/ ability today.
--- NOTE | 2023-08-30 13:56 | SWNOTE1 ---
SW sent updates to [facility], precert was started 08/29/23
[2023-08-30] MEDS: NYSTATIN 15 GM POWDER 1 APPLIC TOPICAL (15:29)
[2023-08-30] MEDS: CHOLECALCIFEROL (VITAMIN D3) 25 MCG/1,000 UNITS TABLET 50 MCG PO (15:29)
[2023-08-30] MEDS: POTASSIUM CHLORIDE 10 MEQ ER TABLET 20 MEQ PO (15:29)
--- NOTE | 2023-08-30 16:14 | SWNOTE1 ---
Lynette at [facility] has not received authorization at this time. She will call over weekend if she is approved. JULIAN left packet on med/sruge floor.
[2023-08-30] MEDS: LEVOFLOXACIN IN DEXTROSE 5 % 500 MG/100 ML PIGGYBACK 100 MG IV (20:59)
[2023-08-30] MEDS: BUDESONIDE 0.5 MG/2 ML AMPULE NEB IH (23:20)
[2023-08-31] MEDS: NYSTATIN 15 GM POWDER 1 APPLIC TOPICAL ×2 (00:19→10:25)
[2023-08-31] MEDS: ATORVASTATIN CALCIUM 40 MG TABLET PO (00:20)
[2023-08-31] MEDS: PREGABALIN 75 MG CAPSULE PO ×2 (00:20→10:24)
[2023-08-31] MEDS: TRIAMCINOLONE ACETONIDE 0.1% CREAM 15 GM TUBE 1 APPLIC TOPICAL ×2 (00:21→10:25)
[2023-08-31] MEDS: METHYLPREDNISOLONE SOD SUCC PF 125 MG/2 ML VIAL 60 MG IVP ×2 (00:58→04:32)
[2023-08-31 05:20] LABS: Basophils Percent Auto 0.1 % (0.2-2.0); Hemoglobin 7.8 g/dL (12.0-16.0); Immature Granulocytes Abs Auto 0.71 10^3/uL (0.00-0.03); Immature Granulocytes Pct Auto 5.1 % (0.0-0.5); Lymphocytes Absolute Auto 1.2 10^3/uL (1.2-3.8); Lymphocytes Percent Auto 8.7 % (20.5-60.0); Mean Platelet Volume 9.5 fL (9.5-13.5); Monocytes Absolute Auto 0.8 10^3/uL (0.3-0.8); Monocytes Percent Auto 5.9 % (1.7-12.0); Neutrophils Absolute Auto 11.1 10^3/uL (1.4-6.5); Neutrophils Percent Auto 80.2 % (43.0-75.0); Platelet Count 471 10^3/uL (150-450); Red Blood Count 2.89 10^6/uL (4.20-5.40); Red Cell Distribution Width 16.4 % (11.0-15.0); White Blood Count 13.9 10^3/uL (4.0-11.0)
[2023-08-31 05:46] LABS: Alanine Aminotransferase 14 U/L (14-59); Albumin Globulin Ratio 0.4; Albumin Level 1.6 g/dL (3.4-5.0); Alkaline Phosphatase 95 U/L (46-116); Anion Gap 10.4; Aspartate Amino Transferase 11 U/L (15-37); BUN Creatinine Ratio 17.6; Bilirubin Total 0.1 mg/dL (0.2-1.0); Calcium 7.9 mg/dL (8.5-10.1); Carbon Dioxide 25.4 mmol/L (21.0-32.0); Chloride 108 mmol/L (98-107); Estimated GFR (African America 41 (>=60); Estimated GFR (Non-African Ame 34 (>=60); Globulin 4.5 g/dL; Glucose 188 mg/dL (74-106); Potassium 3.8 mmol/L (3.5-5.1); Sodium 140 mmol/L (136-145); Total Protein 6.1 g/dL (6.4-8.2)
[2023-08-31 06:00] VITALS: BP 127/70; PULSE 94; RESP 20; TEMP 36.7; O2SAT 90
[2023-08-31] MEDS: OMEPRAZOLE 40 MG CAPSULE.DR PO (06:42)
[2023-08-31] MEDS: IPRATROPIUM/ALBUTEROL SULFATE 3 ML AMPUL.NEB IH ×2 (07:21→11:09)
[2023-08-31 07:25] VITALS: O2SAT 93
[2023-08-31] MEDS: CHOLECALCIFEROL (VITAMIN D3) 25 MCG/1,000 UNITS TABLET 50 MCG PO (10:23)
[2023-08-31] MEDS: PAROXETINE HCL 20 MG TABLET 40 MG PO (10:23)
[2023-08-31] MEDS: BUPROPION HCL 150 MG XL TABLET 24H 300 MG PO (10:23)
[2023-08-31] MEDS: ENOXAPARIN SODIUM 30 MG/0.3 ML SYRINGE SUBQ (10:23)
[2023-08-31 10:24] VITALS: BP 111/73
[2023-08-31] MEDS: CLOPIDOGREL BISULFATE 75 MG TABLET PO (10:24)
[2023-08-31] MEDS: POTASSIUM CHLORIDE 10 MEQ ER TABLET 20 MEQ PO (10:24)
[2023-08-31] MEDS: LISINOPRIL 5 MG TABLET PO (10:24)
[2023-08-31] MEDS: FUROSEMIDE 40 MG TABLET PO (10:24)
[2023-08-31] MEDS: METOPROLOL SUCCINATE 50 MG TAB.ER.24H PO (10:25)
--- NOTE | 2023-08-31 11:02 | PT.DAILY ---
Physical Therapy Daily Note PT Daily Note/Assess Start: 08/30/23 11:50 Freq: Status: Active Protocol: Document 08/31/23 10:57 MURIELLAYLAEKATERINA (Rec: 08/31/23 11:02 ABDIFATAH [id number]) Physical Therapy Daily Note/Assessment Time In/Time Out Time In 09:38 Time Out 09:58 Pain In Pain N/A Pain Out Pain N/A Subjective Subjective Pt sitting in BS chair upon arrival. Agrees to PT. On room air today. Spo2 94% prior to session Therapeutic Exercise Time Therapeutic Exercise Minutes (minutes) 3 Therapeutic Exercise Units 0 Therapeutic Exercise Treatment Therapeutic Exercise Treatment Seated bilat LE strengthening ex complete while sitting in BS chair 10x ea. Therapeutic Activity Time Therapeutic Activity Minutes (minutes) 12 Therapeutic Activity Units 1 Therapeutic Activity Treatment Chair Transfer Ability Standby Assistance Therapeutic Activity Comments Sit>stand from BS chair to RW SBA. Pt amb 120' with RW, SBA before needing rest break. Seated rest break taken. Sit> stand again SBA amd 30' to restroom. Able to perform toilet transfers SBA with use of grab bar. Needs assistance with pericare, donning new brief and to apply moisture barrier cream. Pt then amb 30' back to BS chair. Remains in BS chair upon completion with call light in reach and needs met. Spo2 91% after activity on room air. Total Physical Therapy Time Total Therapy Minutes 15 Total Physical Therapy Units 1 Summary Daily Note Summary Improved gait endurance while SPO2 remains above 90% with activity.
[2023-08-31] MEDS: BUDESONIDE 0.5 MG/2 ML AMPULE NEB IH (11:09)
[2023-08-31 11:19] VITALS: O2SAT 94
[2023-08-31 12:04] LABS: Magnesium 1.6 mg/dL (1.8-2.4)
--- NOTE | 2023-08-31 13:10 | P.DS_ITS ---
DS: Providers Provider Date of admission: 08/28/23 15:36 Primary care physician: Non-Staff Physician, Consults: 08/28/23 16:50 Occupational Therapy Eval and Treat Routine Reason for consultation: Weakness Physical Therapy Eval and Treat Routine Reason for consultation: Weakness 08/29/23 10:59 Occupational Therapy Eval and Treat Routine Reason for consultation: Weakness Attending physician on discharge: Shaikh Ingrid Discharging clinician: Shaikh Ingrid Anticipated date of discharge: 08/31/23 DS: Diagnosis Discharge Diagnosis (1) UTI (urinary tract infection): Assessment and plan: UTI sec to Klebsiella. ok to d/c on oral Levaquin Qualifiers: Hematuria presence: without hematuria Urinary tract infection type: acute cystitis Qualified Code(s): N30.00 - Acute cystitis without hematuria (2) Sepsis: Assessment and plan: sec to UTI resulting in ARTURO, hypoxia. Stable hemodynamics now. Qualifiers: Acute renal failure type: unspecified Sepsis acute organ dysfunction status: with acute organ dysfunction Sepsis type: sepsis due to unspecified organism Severe sepsis acute organ dysfunction type: acute renal failure (3) Acute kidney failure: Assessment and plan: P/w Cr of 2. Unsure of baseline. Trended down to 1.5. Monitor. Outpatient f/u . (4) Acute exacerbation of COPD with asthma: Assessment and plan: resulting in hypoxia requiring O2. Now on RA. C/w trelegy as outpatient. Prednisone taper. Monitor/f/u as outpatient. (5) Hypoxemia: Assessment and plan: On RA. comfortable. (6) HTN (hypertension): Assessment and plan: C/w home meds. (7) HLD (hyperlipidemia): Assessment and plan: C/w statin (8) Anemia: Assessment and plan: Unsure of baseline HB. no acute bleeding noted. Will need repeat CBC in one week DS: Summary Hospital Course Hospital Course: Sent from SNF for generalized weakness, hypotension, shortness of breath and hypoxia. Patient admitted for sepsis sec to UTI, Acute resp failure with hypoxia sec to COPD exacerbation. She was treated with IV fluids, IV abx, systemic steroids, inhaled bronchodilators with progressive improvement in her clinical status. Her BP is stable, she is on RA and has no active complaints to offer. Urine cx is positive for Klebsiella. She will be treated with oral Levaquin to finish her course of abx. Will need outpatient CBC, BMP in one week to ensure renal function and anemia is stable or improving. Status at Discharge Overall status at discharge: patient is back to baseline Time Spent with Patient Time attestation: Total time spent providing and/or coordinating discharge services: Exam Constitutional Vital Signs, click to edit/add: Last Vital Signs Temp 98.0 F 08/31/23 06:00 Pulse 94 H 08/31/23 06:00 Resp 20 08/31/23 06:00 BP 111/73 08/31/23 10:24 Pulse Ox 94 L 08/31/23 11:19 O2 Del Method Room Air 08/31/23 11:19 O2 Flow Rate 1 08/30/23 10:50 Documenting provider has reviewed patient's vital signs: yes Common normals: no apparent distress and oriented x3 General appearance: cooperative HENMT Common normals: normocephalic and head/scalp atraumatic Head and scalp: normocephalic and atraumatic Eye Common normals: conjunctivae normal and no scleral icterus Conjunctiva: conjunctiva(e) normal Respiratory Common normals: normal respiratory effort and clear to auscultation bilaterally Effort & inspection: able to speak in complete sentences Auscultation: clear to auscultation bilaterally Cardio Common normals: regular rate, S1 normal heart sound and S2 normal heart sound Rate: regular rate Heart sounds: S1 normal and S2 normal GI Common normals: Normal to inspection, nondistended, normoactive bowel sounds present, soft to palpation, non-tender and no hepatosplenomegaly Palpation: soft and no hepatosplenomegaly Extremity Common normals: no clubbing, cyanosis or edema Neuro Common normals: oriented x3, moves all extremities and no focal motor deficits Psych Common normals: mental status grossly normal, denies hallucinations, denies homicidal ideation and denies suicidal ideation DS: Data Data Completed and Pending Labs on day of discharge: Labs from last 24 hours 08/31/23 04:29 WBC 13.9 H RBC 2.89 L Hgb 7.8 L Hct 26.0 L MCV 90.0 MCH 27.0 MCHC 30.0 RDW 16.4 H Plt Count 471 H MPV 9.5 Neut % (Auto) 80.2 H Lymph % (Auto) 8.7 L Villalba % (Auto) 5.9 Eos % (Auto) 0.0 L Baso % (Auto) 0.1 L Neut # (Auto) 11.1 H Lymph # (Auto) 1.2 Villalba # (Auto) 0.8 Eos # (Auto) 0.0 Baso # (Auto) 0.0 Abs Immat Gran (auto) 0.71 H Imm/Tot Granulo (auto) 5.1 H Sodium 140 Potassium 3.8 Chloride 108 H Carbon Dioxide 25.4 Anion Gap 10.4 BUN 26.0 H Creatinine 1.48 H Est GFR ( Amer) 41 L Est GFR (Non-Af Amer) 34 L BUN/Creatinine Ratio 17.6 Glucose 188 H Calcium 7.9 L Magnesium 1.6 L Total Bilirubin 0.1 L AST 11 L ALT 14 Alkaline Phosphatase 95 Total Protein 6.1 L Albumin 1.6 L Globulin 4.5 Albumin/Globulin Ratio 0.4 Preliminary micro results at discharge 08/28/23 12:05 - Preliminary Blood NO GROWTH AT 36-48 HOURS. FINAL TO FOLLOW. 08/28/23 12:04 Blood Culture Result 1 - Preliminary Blood NO GROWTH AT 36-48 HOURS. FINAL TO FOLLOW. Discharge Plan Discharge Disposition: Xfer SNF Discharge Medications: New levofloxacin 500 mg tablet 500 mg PO DAILY 3 Days Qty: 3 0RF prednisone 20 mg tablet 20 mg PO DAILY 3 Days Qty: 3 0RF Continued albuterol sulfate 90 mcg/actuation HFA aerosol inhaler 2 puff INHALATION Q4H alendronate 70 mg tablet 70 mg PO Q7D atorvastatin 40 mg tablet 40 mg PO .QHS bupropion HCl 300 mg tablet extended release 24 hr 300 mg PO QDAY clopidogrel 75 mg tablet 75 mg PO DAILY furosemide 40 mg tablet 40 mg PO QAM lisinopril 5 mg tablet 5 mg PO QAM metoprolol succinate 50 mg tablet extended release 24 hr 50 mg PO QAM pantoprazole 40 mg tablet,delayed release (DR/EC) 40 mg PO QAM paroxetine HCl 40 mg tablet 40 mg PO QAM prednisone 20 mg tablet 20 mg PO QDAY pregabalin 75 mg capsule 75 mg PO Q12H cholecalciferol (vitamin D3) 50 mcg (2,000 unit) tablet 50 mcg PO DAILY nystatin [Nyamyc] 100,000 unit/gram powder 1 applic topical BID Rx Instructions: APPLY TO ABDOMINAL, BREAST TOPICALLY potassium chloride [Klor-Con 10] 10 mEq tablet extended release 20 meq PO DAILY Trelegy Ellipta 100-62.5-25 mcg blister with device 1 inh inhalation DAILY triamcinolone acetonide [Triderm] 0.1 % cream 1 applic topical BID Rx Instructions: APPLY TO ECZEMA AREAS ON ARMS AND LEGS Forms: Portal Instructions Follow Up Appointments: Follow up with at [facility]
== END 2023-08-31 12:32 | DRG 871 ==
LOC: ER 14:31 → ICU 15:40 → MS 08-30 12:52
PROVIDERS: Family Medicine; Admitting Provider Internal Medicine; Emergency Provider Emergency Medicine; Visit Provider Internal Medicine
DX: A41.9 Sepsis, unspecified organism (principal); J96.01 Acute respiratory failure with hypoxia; N30.00 Acute cystitis without hematuria; N17.9 Acute kidney failure, unspecified; J44.1 Chronic obstructive pulmonary disease with (acute) exacerbation; Z16.19 Resistance to other specified beta lactam antibiotics; R00.0 Tachycardia, unspecified; R65.20 Severe sepsis without septic shock; B96.1 Klebsiella pneumoniae [K. pneumoniae] as the cause of diseases classified elsewhere; I10 Essential (primary) hypertension; E83.42 Hypomagnesemia; E78.5 Hyperlipidemia, unspecified; D64.9 Anemia, unspecified; G47.33 Obstructive sleep apnea (adult) (pediatric); Z79.899 Other long term (current) drug therapy; Z96.642 Presence of left artificial hip joint; Z20.822 Contact with and (suspected) exposure to COVID-19
CPT/HCPCS: 36415; 71045; 71250; 71275; 80053; 81001; 83605; 83735; 83880; 84484; 85025; 85027; 85610; 87040; 87086; 87150; 87186; 87635; 87811; 93005; 93970; 94640; 94761; 96365; 96366; 96367; 96368; 96372; 96375; 96376; 97163; 97165; 97530; 99285; J2930; Q9966

== ENCOUNTER 2023-09-22 09:53 | Emergency (ER) | payer MEDICARE, SELFPAY ==
[2023-09-22] VITALS (31 sets, daily range): BP systolic 87–128; BP diastolic 54–82; PULSE 74–93; RESP 15–29; TEMP 36.5; O2SAT 87–100; BMI 33.2
--- NOTE | 2023-09-22 10:01 | XR_ITS ---
The [address] [address] Patient Name: GERA PERDUE MRN: [id number] date: 1945 Sex: F Assigned Patient Location: ED.MAIN Current Patient Location: ER Accession/Order Number: [id number] Exam Date: 09/22/2023 11:10 Report Date: 09/22/2023 11:57 At the request of: AMOS GONZALES Procedure: XR chest 1V EXAM: XR chest 1V INDICATION: weak. COMPARISON: Chest radiograph 08/28/2023. TECHNIQUE: Single frontal view of the chest FINDINGS: Normal cardiomediastinal contours. No acute infiltrative process. No pleural effusion or pneumothorax. No acute osseous abnormality. XR/XR chest 1V IMPRESSION: No acute cardiopulmonary process. Electronically authenticated by: SMITH BERMEO Date: 09/22/2023 11:57
--- NOTE | 2023-09-22 10:01 | ECG_ITS ---
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
--- NOTE | 2023-09-22 10:05 | ED_ITS ---
HPI - General Adult General Chief complaint: Weakness Stated complaint: HYPOTENSION/ DIARRHEA Time Seen by Provider: 09/22/23 10:01 Source: patient Mode of arrival: ambulance History of Present Illness HPI narrative: Patient is a 77-year-old female Due to weakness and diarrhea. Patient is arriving from the [facility]. Patient was initially hypotensive. Patient arrived by EMS and was receiving IV fluids. Patient's had 3 days of diarrhea. Patient was due to be discharged tomorrow to go back home to live with her caregiver. Patient is at the [facility] secondary to rehab and weakness. Patient says that she is at the rehab facility To become stronger. Patient is due to be discharged tomorrow from the [facility] back to [place] that she go home with her caregiver. Patient is in a wheelchair, patient can typically uses a cane with transfer at the [facility] recently. Patient has not been using a walker. Patient has no headache, no chest pain or shortness of breath. No abdominal pain, nausea vomiting. Patient feels that her mouth is dry which it is. No other acute complaints. No recent antibiotics. Related Data Home Medications Medication Instructions Recorded Confirmed albuterol sulfate 90 mcg/actuation 2 puff inhalation Q4H 08/28/23 09/22/23 aerosol inhaler alendronate 70 mg tablet 70 mg PO Q7D 08/28/23 09/22/23 atorvastatin 40 mg tablet 40 mg PO .QHS 08/28/23 09/22/23 bupropion HCl 300 mg 24 hr tablet, 300 mg PO QDAY 08/28/23 09/22/23 extended release cholecalciferol (vitamin D3) 50 50 mcg PO DAILY 08/28/23 09/22/23 mcg (2,000 unit) tablet clopidogrel 75 mg tablet 75 mg PO DAILY 08/28/23 09/22/23 fluticasone fur. 100 mcg-umeclid 1 inh inhalation DAILY 08/28/23 09/22/23 62.5 mcg-vilant 25 mcg inhalat.powder (Trelegy Ellipta) furosemide 40 mg tablet 40 mg PO QAM 08/28/23 09/22/23 lisinopril 5 mg tablet 5 mg PO QAM 08/28/23 09/22/23 metoprolol succinate 50 mg 50 mg PO QAM 08/28/23 09/22/23 tablet,extended release 24 hr nystatin 100,000 unit/gram topical 1 applic topical BID 08/28/23 09/22/23 powder (Nyamyc) pantoprazole 40 mg tablet,delayed 40 mg PO QAM 08/28/23 09/22/23 release paroxetine HCl 40 mg tablet 40 mg PO QAM 08/28/23 09/22/23 potassium chloride 10 mEq 20 meq PO DAILY 08/28/23 09/22/23 tablet,extended release (Klor-Con) prednisone 20 mg tablet 20 mg PO QDAY 08/28/23 09/22/23 pregabalin 75 mg capsule 75 mg PO Q12H 08/28/23 09/22/23 triamcinolone acetonide 0.1 % 1 applic topical BID 08/28/23 09/22/23 topical cream (Triderm) Previous Rx's Medication Instructions Recorded levofloxacin 500 mg tablet 500 mg PO DAILY 3 days #3 tabs 08/31/23 prednisone 20 mg tablet 20 mg PO DAILY 3 days #3 tabs 08/31/23 cephalexin 500 mg capsule 500 mg PO BID 7 days #14 caps 09/22/23 Allergies Allergy/AdvReac Type Severity Reaction Status Date / Time No Known Drug Allergies Allergy Verified 08/28/23 11:05 Review of Systems ROS Narrative All systems are negative except as noted/marked. All systems reviewed and otherwise negative. [facility] Medical History (Updated 09/22/23 @ 15:53 by Gustavo Candelario MD) Anemia ?D64.9 - Anemia, unspecified (ICD-10) COPD (chronic obstructive pulmonary disease) ?J44.9 - Chronic obstructive pulmonary disease, unspecified (ICD-10) HLD (hyperlipidemia) ?E78.5 - Hyperlipidemia, unspecified (ICD-10) HTN (hypertension) ?I10 - Essential (primary) hypertension (ICD-10) ARMAND (obstructive sleep apnea) ?G47.33 - Obstructive sleep apnea (adult) (pediatric) (ICD-10) Surgical History (Updated 08/28/23 @ 16:24 by Sonia Christianson) History of colon surgery ?Z98.890 - Other specified postprocedural states (ICD-10) Social History Highest level of school completed/degree received: 11th grade Exam Narrative Exam Narrative: Nurses note and vital signs reviewed and patient is not hypoxic. General: The patient appears well and in no apparent distress. Patient is resting comfortably on cart. Patient is not toxic, lethargic, or listless Skin: Warm, dry, no pallor noted. There is no rash noted. No petechiae, purpura. Head: Normocephalic, atraumatic Eye: Normal conjunctiva, no drainage, EOMI. PERRL Ears, Nose, Mouth, and Throat: oral mucosa is Very dry. Nares patent. Mouth without vesicles. Cardiovascular: Regular Rate and Rhythm, no murmur, gallop, rub Respiratory: Patient is in no distress, no accessory muscle use, lungs are clear to auscultation, no wheezing, rales or rhonchi Back: non-tender, no CVA tenderness bilaterally to percussion. No CT LS midline pain GI: soft, Obese,no tenderness to palpation, no masses appreciated. No rebound, guarding, or rigidity noted. No flank pain bilateral, No distention Musculoskeletal: Patient has full range of motion of all of the extremities, no motor, sensory, or focal neurological deficits Neurological: A&O x3, normal speech, No strokelike signs or symptoms. Psychiatric: Cooperative Constitutional Vital Signs, click to edit/add: Last Vital Signs Temp 97.7 F 09/22/23 09:57 Pulse 79 09/22/23 13:40 Resp 19 09/22/23 13:40 BP 112/65 09/22/23 13:31 Pulse Ox 96 09/22/23 13:40 O2 Del Method Room Air 09/22/23 09:57 O2 Flow Rate 3 09/22/23 10:05 Course Vital Signs Vital signs: Vital Signs Temperature 97.7 F 09/22/23 09:57 Pulse Rate 74 09/22/23 09:57 Respiratory Rate 20 09/22/23 09:57 Blood Pressure 99/56 09/22/23 09:57 Pulse Oximetry 88 L 09/22/23 09:57 Oxygen Delivery Method Room Air 09/22/23 09:57 Temperature 97.7 F 09/22/23 09:57 Pulse Rate 79 09/22/23 13:40 Respiratory Rate 19 09/22/23 13:40 Blood Pressure 112/65 09/22/23 13:31 Pulse Oximetry 96 09/22/23 13:40 Oxygen Delivery Method Room Air 09/22/23 09:57 Oxygen Delivery Flow Rate 3 09/22/23 10:05 Medical Decision Making MDM Narrative Medical decision making narrative: Patient was given 1 L of IV fluid initially, patient's blood pressure did respond. Patient has evidence of urinary tract infection, patient was given a gram Rocephin and a 2nd liter of IV fluid. Patient will be sent home with a prescription for Keflex. I have spoken to Dr. Whaley, and I presented patient's case to him with a N abnormalities, urinary tract infection, dehydration and the need for IV fluids. He is comfortable with taking patient back to the [facility]. He is aware the patient was going to be discharged tomorrow back to family at home, he will reevaluate the patient and determine that tomorrow. Patient feels better after IV fluids, patient feels comfortable with going back to the [facility] as well. No other acute findings, patient does have elevation of BUN/creatinine, she was given 2 L of IV fluid and will continue hydration at the [facility]. Patient has slight elevation in white blood cell count of 15, her BUN/creatinine are slightly elevated from her normal average of be any creatinine. Lab Data Lab results reviewed: Yes I reviewed the patient's lab results Labs: Lab Results 09/22/23 09/22/23 09/22/23 Range/Units 10:33 12:06 12:27 WBC 15.0 H (4.0-11.0) 10^3/uL RBC 3.93 L (4.20-5.40) 10^6/uL Hgb 10.2 L (12.0-16.0) g/dL Hct 35.1 L (36.0-48.0) % MCV 89.3 (81.0-99.0) fL MCH 26.0 L (26.7-34.0) pg MCHC 29.1 L (29.9-35.2) g/dL RDW 16.3 H (11.0-15.0) % Plt Count 281 (150-450) 10^3/uL MPV 9.8 (9.5-13.5) fL Neut % (Auto) 66.7 (43.0-75.0) % Lymph % (Auto) 19.0 L (20.5-60.0) % [place] % (Auto) 10.6 (1.7-12.0) % Eos % (Auto) 1.5 (0.9-7.0) % Baso % (Auto) 0.5 (0.2-2.0) % Neut # (Auto) 10.0 H (1.4-6.5) 10^3/uL Lymph # (Auto) 2.8 (1.2-3.8) 10^3/uL [place] # (Auto) 1.6 H (0.3-0.8) 10^3/uL Eos # (Auto) 0.2 (0.0-0.7) 10^3/uL Baso # (Auto) 0.1 (0.0-0.1) 10^3/uL Abs Immat Gran (auto) 0.25 H (0.00-0.03) 10^3/uL Imm/Tot Granulo (auto) 1.7 H (0.0-0.5) % Sodium 139 (136-145) mmol/L Potassium 4.7 (3.5-5.1) mmol/L Chloride 104 (98-107) mmol/L Carbon Dioxide 25.3 (21.0-32.0) mmol/L Anion Gap 14.4 BUN 39.0 H (7.0-18.0) mg/dL Creatinine 2.43 H (0.55-1.02) mg/dL Est GFR ( Amer) 23 L (>=60) Est GFR (Non-Af Amer) 19 L (>=60) BUN/Creatinine Ratio 16.0 Glucose 117 H (74-106) mg/dL Lactate 2.1 H 1.5 (0.4-2.0) mmol/L Calcium 8.4 L (8.5-10.1) mg/dL Magnesium 1.2 L (1.8-2.4) mg/dL Total Bilirubin 0.4 (0.2-1.0) mg/dL AST 23 (15-37) U/L ALT 13 L (14-59) U/L Alkaline Phosphatase 71 (46-116) U/L Troponin I High Sens 7.0 (4.0-51.3) pg/mL NT-Pro-B Natriuret Pep 531.0 (<=1800.0) pg/mL Total Protein 6.5 (6.4-8.2) g/dL Albumin 2.3 L (3.4-5.0) g/dL Globulin 4.2 g/dL Albumin/Globulin Ratio 0.5 Lipase 23.0 (16.0-77.0) U/L Urine Color Lt. yellow (YELLOW) Urine Clarity Clear (CLEAR) Urine pH 6.0 (5.0-9.0) Ur Specific [place] 1.015 (1.005-1.025) Urine Protein Negative (NEG/TRACE) mg/dL Urine Glucose (UA) Negative (NEGATIVE) mg/dL Urine Ketones Negative (NEGATIVE) mg/dL Urine Occult Blood Large A (NEGATIVE) Urine Nitrite Negative (NEGATIVE) Urine Bilirubin Negative (NEGATIVE) Urine Urobilinogen 0.2 (0.2-1.0) EU/dL Ur Leukocyte Esterase Large A (NEGATIVE) Urine RBC 20-50 A (0-2) #/HPF Urine WBC 10-20 A (NONE SEEN) #/HPF Ur Squamous Epith Cells Few A (NONE/RARE) #/LPF Urine Crystals None seen (None Seen) #/HPF Urine Bacteria Moderate A (NONE SEEN) #/HPF Urine Casts None seen (NONE SEEN) #/LPF Urine Mucus None seen (NONE SEEN) Stl C. cayetanensis PCR (NOT DETECTE) Stool Rotavirus (PCR) (NOT DETECTE) Stool Adenovirus (PCR) (NOT DETECTE) Stool Astrovirus (PCR) (NOT DETECTE) Stool Campylobacter PCR (NOT DETECTE) Stool Cryptosporidium PCR (NOT DETECTE) St Sh/Enteroin Ecoli PCR (NOT DETECTE) Stl Enterotoxigenic E PCR (NOT DETECTE) Stool EPEC (PCR) (NOT DETECTE) Stl E. histolytica PCR (NOT DETECTE) Stool Giardia Lamblia PCR (NOT DETECTE) Stl P. shigelloides PCR (NOT DETECTE) Stool Salmonella PCR (NOT DETECTE) Stool Sapovirus (PCR) (NOT DETECTE) Stl Shiga-like Tx 1 PCR (NOT DETECTE) St Y.enterocolitica PCR (NOT DETECTE) Stl Vibrio cholerae PCR (NOT DETECTE) Stl Enteroaggr Ecoli PCR (NOT DETECTE) Stl Norovirus GI/GII PCR (NOT DETECTE) C. difficile Toxin A&B (NOT DETECTE) Vibrio Culture (NOT DETECTE) 09/22/23 Range/Units 12:42 WBC (4.0-11.0) 10^3/uL RBC (4.20-5.40) 10^6/uL Hgb (12.0-16.0) g/dL Hct (36.0-48.0) % MCV (81.0-99.0) fL MCH (26.7-34.0) pg MCHC (29.9-35.2) g/dL RDW (11.0-15.0) % Plt Count (150-450) 10^3/uL MPV (9.5-13.5) fL Neut % (Auto) (43.0-75.0) % Lymph % (Auto) (20.5-60.0) % [place] % (Auto) (1.7-12.0) % Eos % (Auto) (0.9-7.0) % Baso % (Auto) (0.2-2.0) % Neut # (Auto) (1.4-6.5) 10^3/uL Lymph # (Auto) (1.2-3.8) 10^3/uL [place] # (Auto) (0.3-0.8) 10^3/uL Eos # (Auto) (0.0-0.7) 10^3/uL Baso # (Auto) (0.0-0.1) 10^3/uL Abs Immat Gran (auto) (0.00-0.03) 10^3/uL Imm/Tot Granulo (auto) (0.0-0.5) % Sodium (136-145) mmol/L Potassium (3.5-5.1) mmol/L Chloride (98-107) mmol/L Carbon Dioxide (21.0-32.0) mmol/L Anion Gap BUN (7.0-18.0) mg/dL Creatinine (0.55-1.02) mg/dL Est GFR ( Amer) (>=60) Est GFR (Non-Af Amer) (>=60) BUN/Creatinine Ratio Glucose (74-106) mg/dL Lactate (0.4-2.0) mmol/L Calcium (8.5-10.1) mg/dL Magnesium (1.8-2.4) mg/dL Total Bilirubin (0.2-1.0) mg/dL AST (15-37) U/L ALT (14-59) U/L Alkaline Phosphatase (46-116) U/L Troponin I High Sens (4.0-51.3) pg/mL NT-Pro-B Natriuret Pep (<=1800.0) pg/mL Total Protein (6.4-8.2) g/dL Albumin (3.4-5.0) g/dL Globulin g/dL Albumin/Globulin Ratio Lipase (16.0-77.0) U/L Urine Color (YELLOW) Urine Clarity (CLEAR) Urine pH (5.0-9.0) Ur Specific [place] (1.005-1.025) Urine Protein (NEG/TRACE) mg/dL Urine Glucose (UA) (NEGATIVE) mg/dL Urine Ketones (NEGATIVE) mg/dL Urine Occult Blood (NEGATIVE) Urine Nitrite (NEGATIVE) Urine Bilirubin (NEGATIVE) Urine Urobilinogen (0.2-1.0) EU/dL Ur Leukocyte Esterase (NEGATIVE) Urine RBC (0-2) #/HPF Urine WBC (NONE SEEN) #/HPF Ur Squamous Epith Cells (NONE/RARE) #/LPF Urine Crystals (None Seen) #/HPF Urine Bacteria (NONE SEEN) #/HPF Urine Casts (NONE SEEN) #/LPF Urine Mucus (NONE SEEN) Stl C. cayetanensis PCR Not detected (NOT DETECTE) Stool Rotavirus (PCR) Not detected (NOT DETECTE) Stool Adenovirus (PCR) Not detected (NOT DETECTE) Stool Astrovirus (PCR) Not detected (NOT DETECTE) Stool Campylobacter PCR Not detected (NOT DETECTE) Stool Cryptosporidium PCR Not detected (NOT DETECTE) St Sh/Enteroin Ecoli PCR Not detected (NOT DETECTE) Stl Enterotoxigenic E PCR Not detected (NOT DETECTE) Stool EPEC (PCR) Not detected (NOT DETECTE) Stl E. histolytica PCR Not detected (NOT DETECTE) Stool Giardia Lamblia PCR Not detected (NOT DETECTE) Stl P. shigelloides PCR Not detected (NOT DETECTE) Stool Salmonella PCR Not detected (NOT DETECTE) Stool Sapovirus (PCR) Not detected (NOT DETECTE) Stl Shiga-like Tx 1 PCR Not detected (NOT DETECTE) St Y.enterocolitica PCR Not detected (NOT DETECTE) Stl Vibrio cholerae PCR Not detected (NOT DETECTE) Stl Enteroaggr Ecoli PCR Not detected (NOT DETECTE) Stl Norovirus GI/GII PCR Not detected (NOT DETECTE) C. difficile Toxin A&B Not detected (NOT DETECTE) Vibrio Culture Not detected (NOT DETECTE) ECG Data Attestation: I personally reviewed and interpreted this ECG as follows: (EKG interpretation. Normal sinus rhythm at 74 beats a minute. Normal axis deviation. No acute ST elevation, no acute ectopy. QTC of 401. Artifact noted.) Discharge Plan Discharge Chief Complaint: Weakness Clinical Impression: Weakness, Acute UTI, Dehydration Patient Disposition: Home, Self-Care Condition: Fair Prescriptions / Home Meds: New cephalexin 500 mg capsule 500 mg PO BID 7 Days Qty: 14 0RF No Action albuterol sulfate 90 mcg/actuation HFA aerosol inhaler 2 puff INHALATION Q4H alendronate 70 mg tablet 70 mg PO Q7D atorvastatin 40 mg tablet 40 mg PO .QHS bupropion HCl 300 mg tablet extended release 24 hr 300 mg PO QDAY clopidogrel 75 mg tablet 75 mg PO DAILY furosemide 40 mg tablet 40 mg PO QAM lisinopril 5 mg tablet 5 mg PO QAM metoprolol succinate 50 mg tablet extended release 24 hr 50 mg PO QAM pantoprazole 40 mg tablet,delayed release (DR/EC) 40 mg PO QAM paroxetine HCl 40 mg tablet 40 mg PO QAM prednisone 20 mg tablet 20 mg PO QDAY pregabalin 75 mg capsule 75 mg PO Q12H cholecalciferol (vitamin D3) 50 mcg (2,000 unit) tablet 50 mcg PO DAILY nystatin [Nyamyc] 100,000 unit/gram powder 1 applic topical BID Rx Instructions: APPLY TO ABDOMINAL, BREAST TOPICALLY potassium chloride [Klor-Con 10] 10 mEq tablet extended release 20 meq PO DAILY Trelegy Ellipta 100-62.5-25 mcg blister with device 1 inh inhalation DAILY triamcinolone acetonide [Triderm] 0.1 % cream 1 applic topical BID Rx Instructions: APPLY TO ECZEMA AREAS ON ARMS AND LEGS levofloxacin 500 mg tablet 500 mg PO DAILY 3 Days Qty: 3 0RF prednisone 20 mg tablet 20 mg PO DAILY 3 Days Qty: 3 0RF Instructions: Dehydration (ED), Weakness (ED), Urinary Tract Infection in Older Adults (ED) Additional Instructions: Continue antibiotics for the next 5 days. Increase fluids Follow-up with Dr. Whaley at [facility] for any other further recommendations or instructions Stand Alone Forms: Portal Instructions Referrals: Physician,Non-Staff, MD [Physician] - 1 week Discharge Date/Time: 09/22/23 17:22
--- NOTE | 2023-09-22 10:05 | PC.NURSE ---
pt o2 sat 88% on RA on arrival. pt placed on 3L of O2 per NC O2 sat up to 93%. pt does reports HX of COPD
[2023-09-22] MEDS: 0.9 % SODIUM CHLORIDE 1,000 ML 999 ML IV (10:39)
[2023-09-22 10:46] LABS: Basophils Absolute Auto 0.1 10^3/uL (0.0-0.1); Basophils Percent Auto 0.5 % (0.2-2.0); Eosinophils Absolute Auto 0.2 10^3/uL (0.0-0.7); Eosinophils Percent Auto 1.5 % (0.9-7.0); Hematocrit 35.1 % (36.0-48.0); Hemoglobin 10.2 g/dL (12.0-16.0); Immature Granulocytes Abs Auto 0.25 10^3/uL (0.00-0.03); Immature Granulocytes Pct Auto 1.7 % (0.0-0.5); Lymphocytes Absolute Auto 2.8 10^3/uL (1.2-3.8); Mean Corpuscular HGB Conc 29.1 g/dL (29.9-35.2); Mean Corpuscular Volume 89.3 fL (81.0-99.0); Mean Platelet Volume 9.8 fL (9.5-13.5); Monocytes Absolute Auto 1.6 10^3/uL (0.3-0.8); Monocytes Percent Auto 10.6 % (1.7-12.0); Neutrophils Percent Auto 66.7 % (43.0-75.0); Platelet Count 281 10^3/uL (150-450); Red Blood Count 3.93 10^6/uL (4.20-5.40); Red Cell Distribution Width 16.3 % (11.0-15.0)
[2023-09-22 11:12] LABS: Alanine Aminotransferase 13 U/L (14-59); Albumin Globulin Ratio 0.5; Albumin Level 2.3 g/dL (3.4-5.0); Alkaline Phosphatase 71 U/L (46-116); Anion Gap 14.4; Aspartate Amino Transferase 23 U/L (15-37); Bilirubin Total 0.4 mg/dL (0.2-1.0); Calcium 8.4 mg/dL (8.5-10.1); Carbon Dioxide 25.3 mmol/L (21.0-32.0); Chloride 104 mmol/L (98-107); Estimated GFR (African America 23 (>=60); Estimated GFR (Non-African Ame 19 (>=60); Globulin 4.2 g/dL; Glucose 117 mg/dL (74-106); Potassium 4.7 mmol/L (3.5-5.1); Sodium 139 mmol/L (136-145); Total Protein 6.5 g/dL (6.4-8.2)
[2023-09-22 11:14] LABS: Lactate/Lactic Acid 2.1 mmol/L (0.4-2.0)
[2023-09-22 11:19] LABS: Magnesium 1.2 mg/dL (1.8-2.4)
[2023-09-22 12:17] LABS: Bilirubin Urine NEGATIVE (NEGATIVE); Blood Urine LARGE (NEGATIVE); Clarity Urine CLEAR (CLEAR); Color Urine LT. YELLOW (YELLOW); Glucose Urine UA NEGATIVE (NEGATIVE); Ketones Urine NEGATIVE (NEGATIVE); Leukocyte Esterase Urine LARGE (NEGATIVE); Nitrite Urine NEGATIVE (NEGATIVE); Protein Urine NEGATIVE (NEG/TRACE); Specific Gravity Urine 1.015 (1.005-1.025); Urobilinogen Urine 0.2 EU/dL (0.2-1.0)
[2023-09-22 12:31] LABS: Bacteria Urine MODERATE #/HPF (NONE SEEN); Cast Seen? NONE SEEN #/LPF (NONE SEEN); Crystals Seen? None Seen #/HPF (None Seen); Mucus Urine NONE SEEN (NONE SEEN); RBC Urine 20-50 #/HPF (0-2); Squamous Epithelial Cell Urine FEW #/LPF (NONE/RARE)
[2023-09-22 12:50] LABS: Lactate/Lactic Acid 1.5 mmol/L (0.4-2.0)
[2023-09-22] MEDS: 0.9 % SODIUM CHLORIDE 1,000 ML 1000 ML IV (14:20)
[2023-09-22] MEDS: CEFTRIAXONE 1,000 MG in 0.9 % SODIUM CHLORIDE 50 ML 100 MG IV (14:20)
[2023-09-22 14:25] LABS: Adenovirus F 40/41 NOT DETECTED (NOT DETECTE); Astrovirus NOT DETECTED (NOT DETECTE); Campylobacter NOT DETECTED (NOT DETECTE); Cryptosporidium NOT DETECTED (NOT DETECTE); Cyclospora cayetanensis NOT DETECTED (NOT DETECTE); Entamoeba histolytica NOT DETECTED (NOT DETECTE); Enteroaggregative E.coli NOT DETECTED (NOT DETECTE); Enteropathogenic E.coli NOT DETECTED (NOT DETECTE); Enterotoxigenic E. coli NOT DETECTED (NOT DETECTE); Giardia lamblia NOT DETECTED (NOT DETECTE); Norovirus GI/GII NOT DETECTED (NOT DETECTE); Plesiomonas shigelloides NOT DETECTED (NOT DETECTE); Rotavirus A NOT DETECTED (NOT DETECTE); Salmonella NOT DETECTED (NOT DETECTE); Sapovirus NOT DETECTED (NOT DETECTE); Shiga-like toxin-producing E.C NOT DETECTED (NOT DETECTE); Shigella/Enteroinvasive E.coli NOT DETECTED (NOT DETECTE); Vibrio NOT DETECTED (NOT DETECTE); Vibrio cholerae NOT DETECTED (NOT DETECTE); Yersinia enterocolitica NOT DETECTED (NOT DETECTE)
== END 2023-09-22 17:22 | disposition home or self-care (01) ==
PROVIDERS: Emergency Provider Emergency Medicine; PCP Internal Medicine
DX: N39.0 Urinary tract infection, site not specified (principal); R53.1 Weakness; E86.0 Dehydration; R19.7 Diarrhea, unspecified; Z79.899 Other long term (current) drug therapy; J44.9 Chronic obstructive pulmonary disease, unspecified; I10 Essential (primary) hypertension; G47.33 Obstructive sleep apnea (adult) (pediatric); E78.5 Hyperlipidemia, unspecified; Z98.890 Other specified postprocedural states; E66.9 Obesity, unspecified; Z68.33 Body mass index [BMI] 33.0-33.9, adult
CPT/HCPCS: 36415; 71045; 80053; 81001; 83605; 83690; 83735; 83880; 84484; 85025; 87086; 87150; 87186; 87493; 87507; 93005; 96361; 96365; 99285

== ENCOUNTER 2023-09-24 12:17 | Emergency (ER) | payer MEDICARE, SELFPAY ==
[2023-09-24] VITALS (29 sets, daily range): BP systolic 65–104; BP diastolic 41–68; PULSE 86–97; RESP 16–28; TEMP 37.4; O2SAT 82–100; BMI 35.6
--- NOTE | 2023-09-24 12:35 | ECG_ITS ---
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
--- NOTE | 2023-09-24 12:36 | XR_ITS ---
The [address] [address] Patient Name: GERA PERDUE MRN: [id number] date: 1945 Sex: F Assigned Patient Location: ED.MAIN Current Patient Location: ED.MAIN Accession/Order Number: [id number] Exam Date: 09/24/2023 13:30 Report Date: 09/24/2023 14:01 At the request of: DAVID MOTTA Procedure: XR chest 1V EXAM: XR chest 1V at 1331 hours HISTORY: weakness COMPARISON: 09/22/2023 TECHNIQUE: AP upright portable chest x-ray. FINDINGS: There is now a small amount of atelectasis or infiltrate at the left lung base. The mid and upper left lung and the right lung are clear. A very small left pleural effusion may be present. There is no other evidence of an effusion or pneumothorax. The heart is not enlarged and the vasculature is not distended. The osseous structures are grossly intact with evidence of prior fracture involving the right shoulder. XR/XR chest 1V IMPRESSION: There is now is a small amount of atelectasis or infiltrate at the left lung base, possibly with a tiny effusion. No other infiltrate is identified and there is no evidence of overt cardiac decompensation. Electronically authenticated by: KRISTY CIFUENTES Date: 09/24/2023 14:01
--- NOTE | 2023-09-24 12:37 | ED_ITS ---
HPI - General Adult General Chief complaint: Recheck/Abnormal Lab/Rx Stated complaint: UTI SYMPTOMS Time Seen by Provider: 09/24/23 12:31 Source: patient Mode of arrival: ambulance Limitations: no limitations History of Present Illness HPI narrative: 77-year-old female presents to Emergency Department for weakness. She was apparently diagnosed with a urinary tract infection a few days ago and put on an antibiotic. She was sent here from [facility] because of a possible low pulse ox of eighty-five percent. She doesn't feel weak or dizzy right now and doesn't have any pain. No vomiting or diarrhea or cough. Related Data Home Medications Medication Instructions Recorded Confirmed albuterol sulfate 90 mcg/actuation 2 puff inhalation Q4H 08/28/23 09/22/23 aerosol inhaler alendronate 70 mg tablet 70 mg PO Q7D 08/28/23 09/22/23 atorvastatin 40 mg tablet 40 mg PO .QHS 08/28/23 09/22/23 bupropion HCl 300 mg 24 hr tablet, 300 mg PO QDAY 08/28/23 09/22/23 extended release cholecalciferol (vitamin D3) 50 50 mcg PO DAILY 08/28/23 09/22/23 mcg (2,000 unit) tablet clopidogrel 75 mg tablet 75 mg PO DAILY 08/28/23 09/22/23 fluticasone fur. 100 mcg-umeclid 1 inh inhalation DAILY 08/28/23 09/22/23 62.5 mcg-vilant 25 mcg inhalat.powder (Trelegy Ellipta) furosemide 40 mg tablet 40 mg PO QAM 08/28/23 09/22/23 lisinopril 5 mg tablet 5 mg PO QAM 08/28/23 09/22/23 metoprolol succinate 50 mg 50 mg PO QAM 08/28/23 09/22/23 tablet,extended release 24 hr nystatin 100,000 unit/gram topical 1 applic topical BID 08/28/23 09/22/23 powder (Nyamyc) pantoprazole 40 mg tablet,delayed 40 mg PO QAM 08/28/23 09/22/23 release paroxetine HCl 40 mg tablet 40 mg PO QAM 08/28/23 09/22/23 potassium chloride 10 mEq 20 meq PO DAILY 08/28/23 09/22/23 tablet,extended release (Klor-Con) prednisone 20 mg tablet 20 mg PO QDAY 08/28/23 09/22/23 pregabalin 75 mg capsule 75 mg PO Q12H 08/28/23 09/22/23 triamcinolone acetonide 0.1 % 1 applic topical BID 08/28/23 09/22/23 topical cream (Triderm) Previous Rx's Medication Instructions Recorded levofloxacin 500 mg tablet 500 mg PO DAILY 3 days #3 tabs 08/31/23 prednisone 20 mg tablet 20 mg PO DAILY 3 days #3 tabs 08/31/23 cephalexin 500 mg capsule 500 mg PO BID 7 days #14 caps 09/22/23 azithromycin 250 mg tablet See Rx Instructions PO .COMPLEX #6 09/24/23 (Zithromax Z-Yehuda) tabs Allergies Allergy/AdvReac Type Severity Reaction Status Date / Time No Known Drug Allergies Allergy Verified 08/28/23 11:05 Review of Systems ROS Narrative A ten point review of systems is negative except as noted above. [facility] Medical History (Updated 09/24/23 @ 16:17 by Steve Hogan MD) Anemia ?D64.9 - Anemia, unspecified (ICD-10) COPD (chronic obstructive pulmonary disease) ?J44.9 - Chronic obstructive pulmonary disease, unspecified (ICD-10) HLD (hyperlipidemia) ?E78.5 - Hyperlipidemia, unspecified (ICD-10) HTN (hypertension) ?I10 - Essential (primary) hypertension (ICD-10) ARMAND (obstructive sleep apnea) ?G47.33 - Obstructive sleep apnea (adult) (pediatric) (ICD-10) Surgical History (Updated 08/28/23 @ 16:24 by Sonia Christianson) History of colon surgery ?Z98.890 - Other specified postprocedural states (ICD-10) Social History Smoking status: Former smoker Highest level of school completed/degree received: 11th grade Exam Narrative Exam Narrative: Nurses note and vital signs reviewed and patient is not hypoxic. General: The patient appears well and in no apparent distress. Patient is resting comfortably on cart. Skin: Warm, dry, no pallor noted. There is no rash noted. Head: Normocephalic, atraumatic Eye: Normal conjunctiva, no drainage Ears, Nose, Mouth, and Throat: oral mucosa is moist. Nares patent. Cardiovascular: Regular Rate and Rhythm Respiratory: Patient is in no distress, no accessory muscle use, lungs are clear to auscultation, no wheezing, rales or rhonchi Back: non-tender GI: soft and nontender Musculoskeletal: The patient has no evidence of calf tenderness, no pitting edema, symmetrical pulses noted bilaterally Neurological: A&O, normal speech Psychiatric: Cooperative Constitutional Vital Signs, click to edit/add: Last Vital Signs Temp 99.3 F 09/24/23 12:20 Pulse 86 09/24/23 15:20 Resp 23 09/24/23 15:20 BP 102/66 09/24/23 16:21 Pulse Ox 93 L 09/24/23 15:20 O2 Del Method Room Air 09/24/23 12:20 Course Vital Signs Vital signs: Vital Signs Temperature 99.3 F 09/24/23 12:20 Pulse Rate 97 H 09/24/23 12:20 Respiratory Rate 18 09/24/23 12:20 Pulse Oximetry 94 L 09/24/23 12:20 Oxygen Delivery Method Room Air 09/24/23 12:20 Temperature 99.3 F 09/24/23 12:20 Pulse Rate 86 09/24/23 15:20 Respiratory Rate 23 09/24/23 15:20 Blood Pressure 102/66 09/24/23 16:21 Pulse Oximetry 93 L 09/24/23 15:20 Oxygen Delivery Method Room Air 09/24/23 12:20 Medical Decision Making MDM Narrative Medical decision making narrative: Urinalysis appears essentially normal as does her remaining blood work. Chest x- ray per radiologist suggests an infiltrate and she was given IV Rocephin and Zithromax here and prescribed Zithromax. She does not need to be admitted to the hospital. I've no clinical suspicion of sepsis. Findings were discussed with the patient. Differential Diagnosis Differential Diagnosis: urinary tract infection, pneumonia, dehydration Lab Data Lab results reviewed: Yes I reviewed the patient's lab results Labs: Lab Results 09/24/23 09/24/23 Range/Units 12:53 13:30 WBC 12.1 H (4.0-11.0) 10^3/uL RBC 3.82 L (4.20-5.40) 10^6/uL Hgb 9.9 L (12.0-16.0) g/dL Hct 32.2 L (36.0-48.0) % MCV 84.3 (81.0-99.0) fL MCH 25.9 L (26.7-34.0) pg MCHC 30.7 (29.9-35.2) g/dL RDW 16.0 H (11.0-15.0) % Plt Count 290 (150-450) 10^3/uL MPV 9.9 (9.5-13.5) fL Neut % (Auto) 58.2 (43.0-75.0) % Lymph % (Auto) 25.2 (20.5-60.0) % [place] % (Auto) 12.4 H (1.7-12.0) % Eos % (Auto) 1.9 (0.9-7.0) % Baso % (Auto) 0.4 (0.2-2.0) % Neut # (Auto) 7.0 H (1.4-6.5) 10^3/uL Lymph # (Auto) 3.1 (1.2-3.8) 10^3/uL [place] # (Auto) 1.5 H (0.3-0.8) 10^3/uL Eos # (Auto) 0.2 (0.0-0.7) 10^3/uL Baso # (Auto) 0.1 (0.0-0.1) 10^3/uL Abs Immat Gran (auto) 0.23 H (0.00-0.03) 10^3/uL Imm/Tot Granulo (auto) 1.9 H (0.0-0.5) % Sodium 138 (136-145) mmol/L Potassium 4.5 (3.5-5.1) mmol/L Chloride 102 (98-107) mmol/L Carbon Dioxide 25.4 (21.0-32.0) mmol/L Anion Gap 15.1 BUN 25.0 H (7.0-18.0) mg/dL Creatinine 2.12 H (0.55-1.02) mg/dL Est GFR ( Amer) 27 L (>=60) Est GFR (Non-Af Amer) 23 L (>=60) BUN/Creatinine Ratio 11.8 Glucose 115 H (74-106) mg/dL Lactate 1.3 (0.4-2.0) mmol/L Calcium 8.1 L (8.5-10.1) mg/dL Urine Color Yellow (YELLOW) Urine Clarity Clear (CLEAR) Urine pH 5.5 (5.0-9.0) Ur Specific [place] 1.025 (1.005-1.025) Urine Protein Negative (NEG/TRACE) mg/dL Urine Glucose (UA) Negative (NEGATIVE) mg/dL Urine Ketones Negative (NEGATIVE) mg/dL Urine Occult Blood Negative (NEGATIVE) Urine Nitrite Negative (NEGATIVE) Urine Bilirubin Negative (NEGATIVE) Urine Urobilinogen 0.2 (0.2-1.0) EU/dL Ur Leukocyte Esterase Negative (NEGATIVE) Urine RBC None seen (0-2) #/HPF Urine WBC None seen (NONE SEEN) #/HPF Ur Squamous Epith Cells Few A (NONE/RARE) #/LPF Urine Crystals Seen A (None Seen) #/HPF Amorphous Sediment Few Urine Bacteria Small A (NONE SEEN) #/HPF Urine Casts Seen A (NONE SEEN) #/LPF Hyaline Casts Few Coarse Granular Casts Few Urine Mucus None seen (NONE SEEN) Urine Yeast Seen A (NONE SEEN) Imaging Data Chest x-ray: Radiologist's impression: Procedure: XR chest 1V EXAM: XR chest 1V at 1331 hours HISTORY: weakness COMPARISON: 09/22/2023 TECHNIQUE: AP upright portable chest x-ray. FINDINGS: There is now a small amount of atelectasis or infiltrate at the left lung base. The mid and upper left lung and the right lung are clear. A very small left pleural effusion may be present. There is no other evidence of an effusion or pneumothorax. The heart is not enlarged and the vasculature is not distended. The osseous structures are grossly intact with evidence of prior fracture involving the right shoulder. IMPRESSION: There is now is a small amount of atelectasis or infiltrate at the left lung base, possibly with a tiny effusion. No other infiltrate is identified and there is no evidence of overt cardiac decompensation. Electronically authenticated by: KRISTY CIFUENTES Date: 09/24/2023 14: Discharge Plan Discharge Chief Complaint: Recheck/Abnormal Lab/Rx Clinical Impression: Pneumonia Patient Disposition: Home, Self-Care Time of Disposition Decision: 16:16 Condition: Good Mode of Transportation: Private Vehicle Prescriptions / Home Meds: New azithromycin [Zithromax Z-Yehuda] 250 mg tablet See Rx Instructions .ROUTE .COMPLEX Qty: 6 0RF Rx Instructions: For 250 mg dose pack: take 500 mg today (day 1), then 250 mg for 4 days (days 2-5) No Action albuterol sulfate 90 mcg/actuation HFA aerosol inhaler 2 puff INHALATION Q4H alendronate 70 mg tablet 70 mg PO Q7D atorvastatin 40 mg tablet 40 mg PO .QHS bupropion HCl 300 mg tablet extended release 24 hr 300 mg PO QDAY clopidogrel 75 mg tablet 75 mg PO DAILY furosemide 40 mg tablet 40 mg PO QAM lisinopril 5 mg tablet 5 mg PO QAM metoprolol succinate 50 mg tablet extended release 24 hr 50 mg PO QAM pantoprazole 40 mg tablet,delayed release (DR/EC) 40 mg PO QAM paroxetine HCl 40 mg tablet 40 mg PO QAM prednisone 20 mg tablet 20 mg PO QDAY pregabalin 75 mg capsule 75 mg PO Q12H cholecalciferol (vitamin D3) 50 mcg (2,000 unit) tablet 50 mcg PO DAILY nystatin [Nyamyc] 100,000 unit/gram powder 1 applic topical BID Rx Instructions: APPLY TO ABDOMINAL, BREAST TOPICALLY potassium chloride [Klor-Con 10] 10 mEq tablet extended release 20 meq PO DAILY Trelegy Ellipta 100-62.5-25 mcg blister with device 1 inh inhalation DAILY triamcinolone acetonide [Triderm] 0.1 % cream 1 applic topical BID Rx Instructions: APPLY TO ECZEMA AREAS ON ARMS AND LEGS levofloxacin 500 mg tablet 500 mg PO DAILY 3 Days Qty: 3 0RF prednisone 20 mg tablet 20 mg PO DAILY 3 Days Qty: 3 0RF cephalexin 500 mg capsule 500 mg PO BID 7 Days Qty: 14 0RF Instructions: Community Acquired Pneumonia (ED) Stand Alone Forms: Portal Instructions Referrals: AMOS SALAS [Primary Care Provider] - 1 week
[2023-09-24] MEDS: 0.9 % SODIUM CHLORIDE 1,000 ML 1000 ML IV (13:00)
[2023-09-24 13:03] LABS: Basophils Absolute Auto 0.1 10^3/uL (0.0-0.1); Basophils Percent Auto 0.4 % (0.2-2.0); Eosinophils Absolute Auto 0.2 10^3/uL (0.0-0.7); Eosinophils Percent Auto 1.9 % (0.9-7.0); Hematocrit 32.2 % (36.0-48.0); Hemoglobin 9.9 g/dL (12.0-16.0); Immature Granulocytes Abs Auto 0.23 10^3/uL (0.00-0.03); Immature Granulocytes Pct Auto 1.9 % (0.0-0.5); Lymphocytes Absolute Auto 3.1 10^3/uL (1.2-3.8); Lymphocytes Percent Auto 25.2 % (20.5-60.0); Mean Corpuscular HGB Conc 30.7 g/dL (29.9-35.2); Mean Corpuscular Hemoglobin 25.9 pg (26.7-34.0); Mean Corpuscular Volume 84.3 fL (81.0-99.0); Mean Platelet Volume 9.9 fL (9.5-13.5); Monocytes Absolute Auto 1.5 10^3/uL (0.3-0.8); Monocytes Percent Auto 12.4 % (1.7-12.0); Neutrophils Percent Auto 58.2 % (43.0-75.0); Platelet Count 290 10^3/uL (150-450); Red Blood Count 3.82 10^6/uL (4.20-5.40); White Blood Count 12.1 10^3/uL (4.0-11.0)
[2023-09-24 13:13] LABS: Anion Gap 15.1; BUN Creatinine Ratio 11.8; Calcium 8.1 mg/dL (8.5-10.1); Carbon Dioxide 25.4 mmol/L (21.0-32.0); Chloride 102 mmol/L (98-107); Estimated GFR (African America 27 (>=60); Estimated GFR (Non-African Ame 23 (>=60); Glucose 115 mg/dL (74-106); Potassium 4.5 mmol/L (3.5-5.1); Sodium 138 mmol/L (136-145)
[2023-09-24 13:22] LABS: Lactate/Lactic Acid 1.3 mmol/L (0.4-2.0)
[2023-09-24 13:57] LABS: Bilirubin Urine NEGATIVE (NEGATIVE); Blood Urine NEGATIVE (NEGATIVE); Clarity Urine CLEAR (CLEAR); Color Urine YELLOW (YELLOW); Glucose Urine UA NEGATIVE (NEGATIVE); Ketones Urine NEGATIVE (NEGATIVE); Leukocyte Esterase Urine NEGATIVE (NEGATIVE); Nitrite Urine NEGATIVE (NEGATIVE); Protein Urine NEGATIVE (NEG/TRACE); Specific Gravity Urine 1.025 (1.005-1.025); Urobilinogen Urine 0.2 EU/dL (0.2-1.0); pH Urine 5.5 (5.0-9.0)
[2023-09-24 14:17] LABS: Bacteria Urine SMALL #/HPF (NONE SEEN); Crystals Seen? Seen #/HPF (None Seen); Mucus Urine NONE SEEN (NONE SEEN); RBC Urine NONE SEEN #/HPF (0-2); Squamous Epithelial Cell Urine FEW #/LPF (NONE/RARE); WBC Urine NONE SEEN #/HPF (NONE SEEN)
[2023-09-24 14:18] LABS: Amorphous Sediment Urine FEW; Cast Seen? SEEN #/LPF (NONE SEEN); Hyaline Casts Urine FEW
[2023-09-24 14:19] LABS: Coarse Granular Casts Urine FEW
[2023-09-24] MEDS: AZITHROMYCIN 500 MG in 0.9 % SODIUM CHLORIDE 250 ML 250 MG IV (15:01)
[2023-09-24] MEDS: CEFTRIAXONE 1,000 MG in 0.9 % SODIUM CHLORIDE 50 ML 100 MG IV (16:02)
== END 2023-09-24 17:18 | disposition home or self-care (01) ==
PROVIDERS: Emergency Provider Emergency Medicine; PCP Internal Medicine
DX: J18.9 Pneumonia, unspecified organism (principal); J44.0 Chronic obstructive pulmonary disease with (acute) lower respiratory infection; I10 Essential (primary) hypertension; E78.5 Hyperlipidemia, unspecified; G47.33 Obstructive sleep apnea (adult) (pediatric); Z98.890 Other specified postprocedural states; Z79.899 Other long term (current) drug therapy; Z87.891 Personal history of nicotine dependence
CPT/HCPCS: 36415; 71045; 80048; 81001; 83605; 85025; 87040; 93005; 96365; 96375; 99285; J0456

== ENCOUNTER 2023-10-05 09:48 | Emergency (ER) | payer MEDICARE, MEDICAID, SELFPAY ==
[2023-10-05] VITALS (43 sets, daily range): BP systolic 64–122; BP diastolic 52–106; PULSE 90–109; RESP 18–49; TEMP 36.4–37.1; O2SAT 77–99; BMI 34.1
--- NOTE | 2023-10-05 09:57 | ECG_ITS ---
The [facility] Test Date: 2023-10-05 Pat Name: GERA PERDUE Department: Room: - Gender: Female [employer] Administrator: : 1945 Requested By: 1030 Order Number: [id number] Reading MD: CARLOS MANUEL LANGLEY Measurements Intervals [place] Rate: 93 P: 90 ME: 148 QRS: 48 QRSD: 72 T: 68 QT: 332 QTc: 382 Interpretive Statements 1100 Sinus rhythm 8102 Low QRS voltage in chest leads 9120 atypical ECG Compared to ECG 09/24/2023 12:55:46 ST (T wave) deviation no longer present Electronically Signed On 10-06-2023 17:50:39 EST by CARLOS MANUEL LANGLEY
--- NOTE | 2023-10-05 09:57 | XR_ITS ---
The [address] [address] Patient Name: GERA PERDUE MRN: [id number] date: 1945 Sex: F Assigned Patient Location: ED.MAIN Current Patient Location: ER Accession/Order Number: [id number] Exam Date: 10/05/2023 10:10 Report Date: 10/05/2023 10:30 At the request of: DAVID MOTTA Procedure: XR chest 1V EXAM: CHEST 1 VIEW HISTORY: SOB TECHNIQUE: Chest, one view. COMPARISON: 09/24/2023. FINDINGS: There is mild left basilar atelectasis. No focal consolidation, pleural effusion, or pneumothorax. Pulmonary vasculature is within normal limits. There is aortic atherosclerosis, and normal heart size. XR/XR chest 1V IMPRESSION: 1. Mild left basilar atelectasis. Otherwise, lungs clear without acute cardiopulmonary disease. Electronically authenticated by: MIN INGRAM Date: 10/05/2023 10:30
--- NOTE | 2023-10-05 09:58 | ED_ITS ---
HPI - SOB/Dyspnea General Chief Complaint: Shortness of Breath/Dyspnea Stated Complaint: SHORTNESS OF BREATH Time Seen by Provider: 10/05/23 09:52 Source: patient Mode of arrival: ambulance History of Present Illness HPI Narrative: [age] year old female presents to the emergency department for shortness of breath. She comes in from [facility] and is a poor historian. When I asked her why she is here she told me that they got anxious. She was recently treated for pneumonia and urinary tract infection. She has not had a known fever and doesn't complain of any chest pain to me. Related Data Home Medications Medication Instructions Recorded Confirmed albuterol sulfate 90 mcg/actuation 2 puff inhalation Q4H 08/28/23 10/05/23 aerosol inhaler alendronate 70 mg tablet 70 mg PO Q7D 08/28/23 10/05/23 atorvastatin 40 mg tablet 40 mg PO .QHS 08/28/23 10/05/23 bupropion HCl 300 mg 24 hr tablet, 300 mg PO QDAY 08/28/23 10/05/23 extended release cholecalciferol (vitamin D3) 50 50 mcg PO DAILY 08/28/23 10/05/23 mcg (2,000 unit) tablet clopidogrel 75 mg tablet 75 mg PO DAILY 08/28/23 10/05/23 fluticasone fur. 100 mcg-umeclid 1 inh inhalation DAILY 08/28/23 10/05/23 62.5 mcg-vilant 25 mcg inhalat.powder (Trelegy Ellipta) furosemide 40 mg tablet 20 mg PO QAM 08/28/23 10/05/23 lisinopril 5 mg tablet 5 mg PO QAM 08/28/23 10/05/23 metoprolol succinate 50 mg 50 mg PO QAM 08/28/23 10/05/23 tablet,extended release 24 hr nystatin 100,000 unit/gram topical 1 applic topical BID 08/28/23 10/05/23 powder ([facility]) pantoprazole 40 mg tablet,delayed 40 mg PO QAM 08/28/23 10/05/23 release paroxetine HCl 40 mg tablet 40 mg PO QAM 08/28/23 10/05/23 potassium chloride 10 mEq 20 meq PO DAILY 08/28/23 10/05/23 tablet,extended release (Klor-Con) prednisone 20 mg tablet 20 mg PO QDAY 08/28/23 09/22/23 pregabalin 75 mg capsule 75 mg PO Q12H 08/28/23 10/05/23 triamcinolone acetonide 0.1 % 1 applic topical BID 08/28/23 09/22/23 topical cream (Triderm) Previous Rx's Medication Instructions Recorded levofloxacin 500 mg tablet 500 mg PO DAILY 3 days #3 tabs 08/31/23 prednisone 20 mg tablet 20 mg PO DAILY 3 days #3 tabs 08/31/23 cephalexin 500 mg capsule 500 mg PO BID 7 days #14 caps 09/22/23 azithromycin 250 mg tablet See Rx Instructions PO .COMPLEX #6 09/24/23 (Zithromax Z-Yehuda) tabs Allergies Allergy/AdvReac Type Severity Reaction Status Date / Time No Known Drug Allergies Allergy Verified 08/28/23 11:05 Review of Systems ROS Narrative A ten point review of systems is negative except as noted above. [facility] Medical History (Updated 10/05/23 @ 12:11 by Steve Hogan MD) Anemia ?D64.9 - Anemia, unspecified (ICD-10) HLD (hyperlipidemia) ?E78.5 - Hyperlipidemia, unspecified (ICD-10) ARMAND (obstructive sleep apnea) ?G47.33 - Obstructive sleep apnea (adult) (pediatric) (ICD-10) COPD (chronic obstructive pulmonary disease) ?J44.9 - Chronic obstructive pulmonary disease, unspecified (ICD-10) HTN (hypertension) ?I10 - Essential (primary) hypertension (ICD-10) Surgical History (Updated 08/28/23 @ 16:24 by Sonia Christianson) History of colon surgery ?Z98.890 - Other specified postprocedural states (ICD-10) Social History Smoking status: Former smoker Highest level of school completed/degree received: 11th grade Exam Narrative Exam Narrative: Nurses note and vital signs reviewed and patient is not hypoxic. General: The patient appears well and in no apparent distress. Patient is resting comfortably on cart. Skin: Warm, dry, no pallor noted. There some excoriations on her arms. Head: Normocephalic, atraumatic Eye: Normal conjunctiva, no drainage Ears, Nose, Mouth, and Throat: oral mucosa is moist. Nares patent. Cardiovascular: Regular Rate and Rhythm Respiratory: Patient is in no distress, no accessory muscle use, lungs are clear to auscultation, no wheezing, rales or rhonchi Back: non-tender GI: no tenderness to palpation, no masses appreciated. No rebound, guarding, or rigidity noted. Musculoskeletal: The patient has no evidence of calf tenderness, symmetrical pulses noted bilaterally Neurological: A&O x4, she is quite tremorous. Psychiatric: Cooperative Constitutional Vital Signs, click to edit/add: Last Vital Signs Temp 97.6 F 10/05/23 09:49 Pulse 95 H 10/05/23 11:32 Resp 29 H 10/05/23 11:32 BP 81/61 L 10/05/23 11:32 Pulse Ox 92 L 10/05/23 11:32 O2 Del Method Room Air 10/05/23 10:20 O2 Flow Rate 3 10/05/23 10:20 Course Vital Signs Vital signs: Vital Signs Temperature 97.6 F 10/05/23 09:49 Pulse Rate 104 H 10/05/23 09:49 Respiratory Rate 22 10/05/23 09:49 Pulse Oximetry 95 10/05/23 09:49 Oxygen Delivery Method Room Air 10/05/23 09:49 Temperature 97.6 F 10/05/23 09:49 Pulse Rate 95 H 10/05/23 11:32 Respiratory Rate 29 H 10/05/23 11:32 Blood Pressure 81/61 L 10/05/23 11:32 Pulse Oximetry 92 L 10/05/23 11:32 Oxygen Delivery Method Room Air 10/05/23 10:20 Oxygen Delivery Flow Rate 3 10/05/23 10:20 MDM - SOB/Dyspnea MDM Narrative Medical decision making narrative: the patient is found to have acute kidney injury with hyperkalemia. Her creatinine today is 3.9 from a baseline of around 2.0. Potassium 5.4 and she was given D50 and insulin and IV fluids. Case discussed with hospitalist and the patient will be transferred to facility that has nephrology. Family is requesting [facility] and I've spoken to Dr. Isaac there who accepts the patient. The patient is stable and agreeable for transfer. Differential Diagnosis Differential diagnosis: Likely other (dehydration, acute kidney injury, hyperkalemia) Lab Data Attestation: I reviewed the patient's lab results. Labs: Lab Results 10/05/23 10/05/23 10/05/23 Range/Units 10:05 10:10 10:18 WBC 16.8 H (4.0-11.0) 10^3/uL RBC 3.18 L (4.20-5.40) 10^6/uL Hgb 8.1 L (12.0-16.0) g/dL Hct 26.7 L (36.0-48.0) % MCV 84.0 (81.0-99.0) fL MCH 25.5 L (26.7-34.0) pg MCHC 30.3 (29.9-35.2) g/dL RDW 16.6 H (11.0-15.0) % Plt Count 513 H (150-450) 10^3/uL MPV 9.7 (9.5-13.5) fL Neut % (Auto) 67.3 (43.0-75.0) % Lymph % (Auto) 21.7 (20.5-60.0) % [place] % (Auto) 8.8 (1.7-12.0) % Eos % (Auto) 0.2 L (0.9-7.0) % Baso % (Auto) 0.7 (0.2-2.0) % Neut # (Auto) 11.3 H (1.4-6.5) 10^3/uL Lymph # (Auto) 3.6 (1.2-3.8) 10^3/uL [place] # (Auto) 1.5 H (0.3-0.8) 10^3/uL Eos # (Auto) 0.0 (0.0-0.7) 10^3/uL Baso # (Auto) 0.1 (0.0-0.1) 10^3/uL Abs Immat Gran (auto) 0.21 H (0.00-0.03) 10^3/uL Imm/Tot Granulo (auto) 1.3 H (0.0-0.5) % Sodium 138 (136-145) mmol/L Potassium 5.4 H (3.5-5.1) mmol/L Chloride 103 (98-107) mmol/L Carbon Dioxide 22.5 (21.0-32.0) mmol/L Anion Gap 17.9 BUN 48.0 H (7.0-18.0) mg/dL Creatinine 3.92 H (0.55-1.02) mg/dL Est GFR ( Amer) 13 L (>=60) Est GFR (Non-Af Amer) 11 L (>=60) BUN/Creatinine Ratio 12.2 Glucose 87 (74-106) mg/dL Calcium 7.2 L (8.5-10.1) mg/dL Troponin I High Sens 7.5 (4.0-51.3) pg/mL Urine Color Lt. yellow (YELLOW) Urine Clarity Clear (CLEAR) Urine pH 5.5 (5.0-9.0) Ur Specific [place] 1.025 (1.005-1.025) Urine Protein Negative (NEG/TRACE) mg/dL Urine Glucose (UA) Negative (NEGATIVE) mg/dL Urine Ketones Negative (NEGATIVE) mg/dL Urine Occult Blood Small A (NEGATIVE) Urine Nitrite Negative (NEGATIVE) Urine Bilirubin Negative (NEGATIVE) Urine Urobilinogen 0.2 (0.2-1.0) EU/dL Ur Leukocyte Esterase Small A (NEGATIVE) Urine RBC 0-2 (0-2) #/HPF Urine WBC 2-5 A (NONE SEEN) #/HPF Ur Squamous Epith Cells Few A (NONE/RARE) #/LPF Urine Bacteria Small A (NONE SEEN) #/HPF Urine Mucus None seen (NONE SEEN) Urine Yeast Seen A (NONE SEEN) SARS-CoV-2 (PCR) Negative (NEGATIVE) POC Glucose (74-106) mg/dL 10/05/23 Range/Units 11:34 WBC (4.0-11.0) 10^3/uL RBC (4.20-5.40) 10^6/uL Hgb (12.0-16.0) g/dL Hct (36.0-48.0) % MCV (81.0-99.0) fL MCH (26.7-34.0) pg MCHC (29.9-35.2) g/dL RDW (11.0-15.0) % Plt Count (150-450) 10^3/uL MPV (9.5-13.5) fL Neut % (Auto) (43.0-75.0) % Lymph % (Auto) (20.5-60.0) % [place] % (Auto) (1.7-12.0) % Eos % (Auto) (0.9-7.0) % Baso % (Auto) (0.2-2.0) % Neut # (Auto) (1.4-6.5) 10^3/uL Lymph # (Auto) (1.2-3.8) 10^3/uL [place] # (Auto) (0.3-0.8) 10^3/uL Eos # (Auto) (0.0-0.7) 10^3/uL Baso # (Auto) (0.0-0.1) 10^3/uL Abs Immat Gran (auto) (0.00-0.03) 10^3/uL Imm/Tot Granulo (auto) (0.0-0.5) % Sodium (136-145) mmol/L Potassium (3.5-5.1) mmol/L Chloride (98-107) mmol/L Carbon Dioxide (21.0-32.0) mmol/L Anion Gap BUN (7.0-18.0) mg/dL Creatinine (0.55-1.02) mg/dL Est GFR ( Amer) (>=60) Est GFR (Non-Af Amer) (>=60) BUN/Creatinine Ratio Glucose (74-106) mg/dL Calcium (8.5-10.1) mg/dL Troponin I High Sens (4.0-51.3) pg/mL Urine Color (YELLOW) Urine Clarity (CLEAR) Urine pH (5.0-9.0) Ur Specific [place] (1.005-1.025) Urine Protein (NEG/TRACE) mg/dL Urine Glucose (UA) (NEGATIVE) mg/dL Urine Ketones (NEGATIVE) mg/dL Urine Occult Blood (NEGATIVE) Urine Nitrite (NEGATIVE) Urine Bilirubin (NEGATIVE) Urine Urobilinogen (0.2-1.0) EU/dL Ur Leukocyte Esterase (NEGATIVE) Urine RBC (0-2) #/HPF Urine WBC (NONE SEEN) #/HPF Ur Squamous Epith Cells (NONE/RARE) #/LPF Urine Bacteria (NONE SEEN) #/HPF Urine Mucus (NONE SEEN) Urine Yeast (NONE SEEN) SARS-CoV-2 (PCR) (NEGATIVE) POC Glucose 171 H (74-106) mg/dL Imaging Data Chest x-ray: Radiologist's impression: Procedure: XR chest 1V EXAM: CHEST 1 VIEW HISTORY: SOB TECHNIQUE: Chest, one view. COMPARISON: 09/24/2023. FINDINGS: There is mild left basilar atelectasis. No focal consolidation, pleural effusion, or pneumothorax. Pulmonary vasculature is within normal limits. There is aortic atherosclerosis, and normal heart size. IMPRESSION: 1. Mild left basilar atelectasis. Otherwise, lungs clear without acute cardiopulmonary disease. Electronically authenticated by: MIN INGRAM Date: 10/05/2023 10:30 ECG Data Attestation: I personally reviewed and interpreted this ECG as follows: (EKG on my interpretation shows sinus rhythm with a rate of 93 and no peaked T waves.) Critical Care Time Critical Care Time Critical Care Time: Yes Total Critical Care Time: 40 Attestation: Due to the high probability of sudden and clinically significant deterioration in the patient's condition he/she required the highest level of my preparedness to intervene urgently I provided critical care time including documentation time, medication orders and management, reevaluation, vital sign assessment, ordering and reviewing of lab tests, ordering and reviewing of x-ray studies, and admission orders. Aggregate critical care time is 40 minutes including only time during which I was engaged in work directly related to his/her care and did not include time spent treating other patients simultaneously. Discharge Plan Discharge Chief Complaint: Shortness of Breath/Dyspnea Clinical Impression: ARTURO (acute kidney injury), Acute hyperkalemia Patient Disposition: [facility] Time of Disposition Decision: 12:09 Discharge Location: [facility] Condition: Fair Mode of Transportation: EMS
[2023-10-05] MEDS: DIAZEPAM 5 MG/ML - 2 ML INJ SYRINGE 2.5 MG IV ×3 (10:13→16:25)
[2023-10-05 10:40] LABS: Basophils Absolute Auto 0.1 10^3/uL (0.0-0.1); Basophils Percent Auto 0.7 % (0.2-2.0); Eosinophils Percent Auto 0.2 % (0.9-7.0); Hematocrit 26.7 % (36.0-48.0); Hemoglobin 8.1 g/dL (12.0-16.0); Immature Granulocytes Abs Auto 0.21 10^3/uL (0.00-0.03); Immature Granulocytes Pct Auto 1.3 % (0.0-0.5); Lymphocytes Absolute Auto 3.6 10^3/uL (1.2-3.8); Lymphocytes Percent Auto 21.7 % (20.5-60.0); Mean Corpuscular HGB Conc 30.3 g/dL (29.9-35.2); Mean Corpuscular Hemoglobin 25.5 pg (26.7-34.0); Mean Platelet Volume 9.7 fL (9.5-13.5); Monocytes Absolute Auto 1.5 10^3/uL (0.3-0.8); Monocytes Percent Auto 8.8 % (1.7-12.0); Neutrophils Absolute Auto 11.3 10^3/uL (1.4-6.5); Neutrophils Percent Auto 67.3 % (43.0-75.0); Platelet Count 513 10^3/uL (150-450); Red Blood Count 3.18 10^6/uL (4.20-5.40); Red Cell Distribution Width 16.6 % (11.0-15.0); White Blood Count 16.8 10^3/uL (4.0-11.0)
[2023-10-05 10:43] LABS: Anion Gap 17.9; BUN Creatinine Ratio 12.2; Calcium 7.2 mg/dL (8.5-10.1); Carbon Dioxide 22.5 mmol/L (21.0-32.0); Chloride 103 mmol/L (98-107); Estimated GFR (African America 13 (>=60); Estimated GFR (Non-African Ame 11 (>=60); Glucose 87 mg/dL (74-106); Potassium 5.4 mmol/L (3.5-5.1); Sodium 138 mmol/L (136-145)
[2023-10-05 10:47] LABS: Bilirubin Urine NEGATIVE (NEGATIVE); Blood Urine SMALL (NEGATIVE); Clarity Urine CLEAR (CLEAR); Color Urine LT. YELLOW (YELLOW); Glucose Urine UA NEGATIVE (NEGATIVE); Ketones Urine NEGATIVE (NEGATIVE); Leukocyte Esterase Urine SMALL (NEGATIVE); Nitrite Urine NEGATIVE (NEGATIVE); Protein Urine NEGATIVE (NEG/TRACE); Specific Gravity Urine 1.025 (1.005-1.025); Urobilinogen Urine 0.2 EU/dL (0.2-1.0); pH Urine 5.5 (5.0-9.0)
[2023-10-05 10:51] LABS: Troponin I High Sensitivity 7.5 pg/mL (4.0-51.3)
[2023-10-05 10:59] LABS: RBC Urine 0-2 #/HPF (0-2)
[2023-10-05 11:00] LABS: Bacteria Urine SMALL #/HPF (NONE SEEN); Mucus Urine NONE SEEN (NONE SEEN); Squamous Epithelial Cell Urine FEW #/LPF (NONE/RARE)
[2023-10-05] MEDS: 0.9 % SODIUM CHLORIDE 1,000 ML 125 ML IV (11:09)
[2023-10-05] MEDS: DEXTROSE 50 %-WATER 25 GM/50 ML SYRINGE IV ×3 (11:09→13:10)
[2023-10-05] MEDS: INSULIN REGULAR 300 UNITS/3 ML 10 UNIT IV (11:17)
[2023-10-05 11:23] LABS: SARS-CoV-2 Ag NEGATIVE (NEGATIVE)
[2023-10-05 11:36] LABS: Glucometer 171 mg/dL (74-106)
[2023-10-05] MEDS: 0.9 % SODIUM CHLORIDE 500 ML IV (11:52)
[2023-10-05 12:20] LABS: Glucometer 49 mg/dL (74-106)
[2023-10-05 12:20] LABS: Glucometer 42 mg/dL (74-106)
[2023-10-05 12:26] LABS: Glucometer 142 mg/dL (74-106)
[2023-10-05 12:59] LABS: Glucometer 53 mg/dL (74-106)
[2023-10-05 12:59] LABS: Glucometer 53 mg/dL (74-106)
[2023-10-05 13:15] LABS: Glucometer 179 mg/dL (74-106)
[2023-10-05 13:52] LABS: Glucometer 79 mg/dL (74-106)
[2023-10-05 14:27] LABS: Glucometer 95 mg/dL (74-106)
[2023-10-05 15:31] LABS: SARS-CoV-2 NAA NOT DETECTED (NOT DETECTE)
[2023-10-05 15:39] LABS: Glucometer 109 mg/dL (74-106)
== END 2023-10-05 16:28 | disposition short-term general hospital (02) ==
PROVIDERS: Emergency Provider Emergency Medicine; PCP Internal Medicine
DX: N17.9 Acute kidney failure, unspecified (principal); E87.5 Hyperkalemia; E78.5 Hyperlipidemia, unspecified; G47.33 Obstructive sleep apnea (adult) (pediatric); J44.9 Chronic obstructive pulmonary disease, unspecified; I10 Essential (primary) hypertension; Z20.822 Contact with and (suspected) exposure to COVID-19; Z98.890 Other specified postprocedural states; Z87.891 Personal history of nicotine dependence; Z79.899 Other long term (current) drug therapy
CPT/HCPCS: 36415; 71045; 80048; 81001; 84484; 85025; 87635; 87811; 93005; 96374; 96376; 99285

== ENCOUNTER 2024-05-25 12:19 | Emergency (ER) | payer MEDICARE, MEDICAID, SELFPAY ==
[2024-05-25] VITALS (24 sets, daily range): BP systolic 124–152; BP diastolic 65–81; PULSE 81–95; TEMP 36.7–36.8; O2SAT 92–100; BMI 32.8
--- NOTE | 2024-05-25 12:29 | ED_ITS ---
HPI - SOB/Dyspnea General Chief Complaint: Shortness of Breath/Dyspnea Stated Complaint: SOB Time Seen by Provider: 05/25/24 12:24 Mode of arrival: ambulance History of Present Illness HPI Narrative: Patient here by squad for evaluation of difficulty breathing. Paramedics brought her here after giving her Solu-Medrol and initiating dual med aerosol treatment she has a history of COPD and pneumonia. She says she started feeling bad yesterday this is progressively gotten worse. They said initial pulse oximetry was approximately 92%. She is here by herself initially. She tells me she did not take any nebulizer treatments before the squad picked her up today. She also has a history of chronic renal failure. She was seen on arrival here with patient monitoring and twelve-lead EKG and continuation of the nebulizer treatment. She is awake and alert and following commands. While getting the nebulizer treatment her oximetry is 100% on the mask. Related Data Home Medications ?Medication ?Instructions ?Recorded ?Confirmed albuterol sulfate 90 mcg/actuation 2 puff inhalation Q4H 08/28/23 05/25/24 aerosol inhaler bupropion HCl 300 mg 24 hr tablet, 300 mg PO QDAY 08/28/23 05/25/24 extended release cholecalciferol (vitamin D3) 50 50 mcg PO DAILY 08/28/23 05/25/24 mcg (2,000 unit) tablet clopidogrel 75 mg tablet 75 mg PO DAILY 08/28/23 05/25/24 furosemide 40 mg tablet 20 mg PO QAM 08/28/23 05/25/24 pantoprazole 40 mg tablet,delayed 40 mg PO QAM 08/28/23 05/25/24 release paroxetine HCl 40 mg tablet 40 mg PO QAM 08/28/23 05/25/24 potassium chloride 10 mEq 20 meq PO DAILY 08/28/23 05/25/24 tablet,extended release (Klor-Con) prednisone 20 mg tablet 20 mg PO QDAY 08/28/23 09/22/23 pregabalin 75 mg capsule 75 mg PO BID 08/28/23 05/25/24 triamcinolone acetonide 0.1 % 1 applic topical BID 08/28/23 09/22/23 topical cream (Triderm) fluticasone fur. 100 mcg-umeclid 1 inh inhalation DAILY 05/25/24 05/25/24 62.5 mcg-vilant 25 mcg inhalat.powder (Trelegy Ellipta) Previous Rx's ?Medication ?Instructions ?Recorded prednisone 20 mg tablet 20 mg PO DAILY 3 days #3 tabs 08/31/23 Allergies Allergy/AdvReac Type Severity Reaction Status Date / Time No Known Drug Allergies Allergy Verified 08/28/23 11:05 [facility] Medical History (Updated 05/25/24 @ 15:53 by Yovani Sanders MD) Anemia ?D64.9 - Anemia, unspecified (ICD-10) HLD (hyperlipidemia) ?E78.5 - Hyperlipidemia, unspecified (ICD-10) ARMAND (obstructive sleep apnea) ?G47.33 - Obstructive sleep apnea (adult) (pediatric) (ICD-10) COPD (chronic obstructive pulmonary disease) ?J44.9 - Chronic obstructive pulmonary disease, unspecified (ICD-10) HTN (hypertension) ?I10 - Essential (primary) hypertension (ICD-10) Surgical History (Updated 08/28/23 @ 16:24 by Sonia Christianson) History of colon surgery ?Z98.890 - Other specified postprocedural states (ICD-10) Social History Smoking status: Former smoker Highest level of school completed/degree received: 11th grade Exam Narrative Exam Narrative: On arrival she was using the nebulizer that the administered by the squad. Her pulse oximetry was stable. When she was finished with the treatment we placed her on 3 L of oxygen which is her chronic home oxygen use and her oximetry is stabilized throughout her stay here at 94%. On examination she is awake alert she is a good historian. She has no complaints of pain initially but after sitting on the cart a while she said her buttock area was sore. Lungs showed some scattered rhonchi. There is no substantial wheezing and aeration was good. Heart rate and rhythm were normal with no ectopy I do not hear murmur. There is no jugular vein distention. HEENT shows no evidence of infectious process or dehydration to the mucous membranes. Abdomen was soft and supple with no pain or discomfort to palpation. The buttock area and perineum was normal with no bedsores or no skin breakdown. Extremities not show evidence of DVT phlebitis or cellulitis. Constitutional Vital Signs, click to edit/add: Last Vital Signs Temp 98.3 F 05/25/24 12:20 Pulse 86 07/29/24 12:20 Resp 22 H 05/25/24 12:20 BP 152/71 H 05/25/24 12:20 Pulse Ox 100 05/25/24 12:20 O2 Del Method Simple Mask 05/25/24 12:20 Course Vital Signs Vital signs: Vital Signs Temperature 98.3 F 05/25/24 12:20 Pulse Rate 86 05/25/24 12:20 Respiratory Rate 22 H 05/25/24 12:20 Blood Pressure 152/71 H 05/25/24 12:20 Pulse Oximetry 100 05/25/24 12:20 Oxygen Delivery Method Simple Mask 05/25/24 12:20 Temperature 98.3 F 05/25/24 12:20 Pulse Rate 86 05/25/24 12:20 Respiratory Rate 22 H 05/25/24 12:20 Blood Pressure 152/71 H 05/25/24 12:20 Pulse Oximetry 100 05/25/24 12:20 Oxygen Delivery Method Simple Mask 05/25/24 12:20 MDM - SOB/Dyspnea MDM Narrative Medical decision making narrative: This patient uses oxygen at home. She did not use a nebulizer treatment here. She said typically her granddaughter gives her nebulizer treatments. She has easy access to it and assures me that she can take the treatments at home. She was given a second albuterol treatment and remained stable. I asked her if she feels good enough to go home and she said yes. Her chest x-ray did not show any abnormal findings and her basic chemistry profile did not show any acute abnormalities. She had been administered Solu-Medrol. Her white blood cell count is normal and there is no indication of acute infiltrative process. She was encouraged to use the nebulizers every 3-[address] her on a Medrol pack Discharge Plan Discharge Stand Alone Forms: Portal Instructions Chief Complaint: Shortness of Breath/Dyspnea Clinical Impression: Acute exacerbation of chronic obstructive pulmonary disease Patient Disposition: Home, Self-Care Time of Disposition Decision: 15:52 Prescriptions / Home Meds: No Action albuterol sulfate 90 mcg/actuation HFA aerosol inhaler 2 puff INHALATION Q4H bupropion HCl 300 mg tablet extended release 24 hr 300 mg PO QDAY clopidogrel 75 mg tablet 75 mg PO DAILY furosemide 40 mg tablet 20 mg PO QAM pantoprazole 40 mg tablet,delayed release (DR/EC) 40 mg PO QAM paroxetine HCl 40 mg tablet 40 mg PO QAM prednisone 20 mg tablet 20 mg PO QDAY pregabalin 75 mg capsule 75 mg PO BID cholecalciferol (vitamin D3) 50 mcg (2,000 unit) tablet 50 mcg PO DAILY potassium chloride [Klor-Con 10] 10 mEq tablet extended release 20 meq PO DAILY triamcinolone acetonide [Triderm] 0.1 % cream 1 applic topical BID Rx Instructions: APPLY TO ECZEMA AREAS ON ARMS AND LEGS prednisone 20 mg tablet 20 mg PO DAILY 3 Days Qty: 3 0RF Trelegy Ellipta 100-62.5-25 mcg blister with device 1 inh INHALATION DAILY Print Language: Bahamian Additional Instructions: Take nebulizer treatments every 4 hours for several days then as needed. Medrol pack Referrals: AMOS SALAS [Primary Care Provider] - 1 week
--- NOTE | 2024-05-25 12:31 | XR_ITS ---
The [address] [address] Patient Name: GERA PERDUE MRN: [id number] date: 1945 Sex: F Assigned Patient Location: ER Current Patient Location: ER Accession/Order Number: [id number] Exam Date: 05/25/2024 12:40 Report Date: 05/25/2024 13:00 At the request of: GOYO CARNEY Procedure: XR chest 1V EXAMINATION: XR chest 1V HISTORY: Dyspnea COMPARISON: XR chest 10/05/2023, 09/22/2023, 08/28/2023 FINDINGS: LUNGS: Mild opacities obscuring the left lateral lung base VASCULATURE: No increased pulmonary vasculature. PLEURA: No pneumothorax, effusion, or pleural thickening. CARDIAC: No cardiomegaly or cardiac silhouette abnormality. MEDIASTINUM: No visible mass or adenopathy. BONES: No fracture or visible bone lesion. OTHER: Negative. XR/XR chest 1V IMPRESSION: 1. Mild lingular infiltrates versus atelectasis. Electronically authenticated by: STEVIE BARTH Date: 05/25/2024 13:00
--- NOTE | 2024-05-25 12:31 | ECG_ITS ---
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
[2024-05-25 13:11] LABS: Basophils Absolute Auto 0.1 10^3/uL (0.0-0.1); Basophils Percent Auto 0.7 % (0.2-2.0); Eosinophils Absolute Auto 0.2 10^3/uL (0.0-0.7); Eosinophils Percent Auto 2.2 % (0.9-7.0); Hematocrit 33.8 % (36.0-48.0); Immature Granulocytes Abs Auto 0.03 10^3/uL (0.00-0.03); Immature Granulocytes Pct Auto 0.3 % (0.0-0.5); Lymphocytes Absolute Auto 4.1 10^3/uL (1.2-3.8); Lymphocytes Percent Auto 38.1 % (20.5-60.0); Mean Corpuscular HGB Conc 29.6 g/dL (29.9-35.2); Mean Corpuscular Volume 81.3 fL (81.0-99.0); Mean Platelet Volume 8.6 fL (9.5-13.5); Monocytes Absolute Auto 0.8 10^3/uL (0.3-0.8); Monocytes Percent Auto 7.3 % (1.7-12.0); Neutrophils Absolute Auto 5.6 10^3/uL (1.4-6.5); Neutrophils Percent Auto 51.4 % (43.0-75.0); Platelet Count 382 10^3/uL (150-450); Red Blood Count 4.16 10^6/uL (4.20-5.40); Red Cell Distribution Width 17.2 % (11.0-15.0); White Blood Count 10.8 10^3/uL (4.0-11.0)
[2024-05-25 13:13] LABS: PCO2 VBG 56.6 mmHg (40.0-52.0); pH VBG 7.372 (7.330-7.430)
[2024-05-25 13:39] LABS: Alanine Aminotransferase 14 U/L (14-59); Albumin Globulin Ratio 0.5; Albumin Level 2.9 g/dL (3.4-5.0); Alkaline Phosphatase 105 U/L (46-116); Anion Gap 8.5; Aspartate Amino Transferase 11 U/L (15-37); BUN Creatinine Ratio 14.3; Bilirubin Total 0.3 mg/dL (0.2-1.0); Calcium 9.6 mg/dL (8.5-10.1); Carbon Dioxide 33.6 mmol/L (21.0-32.0); Chloride 101 mmol/L (98-107); Estimated GFR (African America 57 (>=60); Estimated GFR (Non-African Ame 47 (>=60); Globulin 5.5 g/dL; Glucose 92 mg/dL (74-106); Potassium 4.1 mmol/L (3.5-5.1); Sodium 139 mmol/L (136-145); Total Protein 8.4 g/dL (6.4-8.2); Troponin I High Sensitivity 6.7 pg/mL (4.0-51.3)
[2024-05-25] MEDS: ALBUTEROL SULFATE 2.5 MG/3 ML VIAL NEB IH (14:19)
[2024-05-25 14:50] LABS: Internal Control Within Normal Limits; SARS-CoV-2 Ag NEGATIVE (NEGATIVE)
--- NOTE | 2024-05-25 15:51 | PC.NURSE ---
expiratory wheeze has resolved, pt states feeling well enough to go home. will call family for brain picker
== END 2024-05-25 16:42 | disposition home or self-care (01) ==
PROVIDERS: Emergency Provider Emergency Medicine Emergency Medical Services; PCP Internal Medicine
DX: J44.1 Chronic obstructive pulmonary disease with (acute) exacerbation (principal); N18.9 Chronic kidney disease, unspecified; Z87.01 Personal history of pneumonia (recurrent); Z87.891 Personal history of nicotine dependence; Z20.822 Contact with and (suspected) exposure to COVID-19
CPT/HCPCS: 36415; 71045; 80053; 82800; 83880; 84484; 85025; 87811; 93005; 94640; 99285

== ENCOUNTER 2024-08-14 10:46 | Emergency (ER) | payer MEDICARE, MEDICAID, SELFPAY ==
[2024-08-14] VITALS (8 sets, daily range): BP systolic 122–151; BP diastolic 66–96; PULSE 88–98; TEMP 36.9; O2SAT 93–96; BMI 33.8
--- NOTE | 2024-08-14 10:52 | XR_ITS ---
The [address] [address] Patient Name: GERA PERDUE MRN: [id number] date: 1945 Sex: F Assigned Patient Location: ER Current Patient Location: ER Accession/Order Number: [id number] Exam Date: 08/14/2024 11:09 Report Date: 08/14/2024 12:00 At the request of: EUGENIA STANLEY Procedure: XR hip LT 2V w/ pelvis PROCEDURE: XR femur LT 2V, XR knee LT 3V, XR hip LT 2V w/ pelvis COMPARISON: None. HISTORY: pain FINDINGS: BONES:Chronic complex healed intertrochanteric hip fracture with internal fixation utilizing a retrograde intramedullary cat and dynamic compression screw. Moderate bilateral hip osteoarthritis with joint space narrowing marginal osteophyte formation. Moderate degenerative changes of the spine. No acute fracture of the hip or femur or knee. Severe knee osteoarthritis with dijh-ng-nadh articulation SOFT TISSUES:Negative. No visible soft tissue swelling. EFFUSION:None visible. OTHER: Vascular calcifications XR/XR hip LT 2V w/ pelvis IMPRESSION: No acute fracture Electronically authenticated by: NATHANIEL BOYLE Date: 08/14/2024 12:00
--- NOTE | 2024-08-14 10:52 | XR_ITS ---
[address] [address] Patient Name: GERA PERDUE MRN: [id number] date: 1945 Sex: F Assigned Patient Location: ER Current Patient Location: ER Accession/Order Number: [id number] Exam Date: 08/14/2024 11:09 Report Date: 08/14/2024 11:55 At the request of: EUGENIA STANLEY Procedure: XR tibia fibula LT 2V EXAM: XR tibia fibula LT 2V HISTORY: pain COMPARISON: None. XR/XR tibia fibula LT 2V IMPRESSION: 1. No acute fracture or malalignment. 2. Tricompartmental osteoarthritis of the knee. There are also degenerative changes of the talonavicular joint and tibiotalar articulation. 3. Plantar and Achilles calcaneal enthesophytes. Electronically authenticated by: NOE LITTLE Date: 08/14/2024 11:55
--- NOTE | 2024-08-14 10:52 | XR_ITS ---
The [address] [address] Patient Name: GERA PERDUE MRN: [id number] date: 1945 Sex: F Assigned Patient Location: ER Current Patient Location: ER Accession/Order Number: [id number] Exam Date: 08/14/2024 11:09 Report Date: 08/14/2024 12:00 At the request of: EUGENIA STANLEY Procedure: XR femur LT 2V PROCEDURE: XR femur LT 2V, XR knee LT 3V, XR hip LT 2V w/ pelvis COMPARISON: None. HISTORY: pain FINDINGS: BONES:Chronic complex healed intertrochanteric hip fracture with internal fixation utilizing a retrograde intramedullary cat and dynamic compression screw. Moderate bilateral hip osteoarthritis with joint space narrowing marginal osteophyte formation. Moderate degenerative changes of the spine. No acute fracture of the hip or femur or knee. Severe knee osteoarthritis with ivrz-gs-[id number] articulation SOFT TISSUES:Negative. No visible soft tissue swelling. EFFUSION:None visible. OTHER: Vascular calcifications XR/XR femur LT 2V IMPRESSION: No acute fracture Electronically authenticated by: NATHANIEL BOYLE Date: 08/14/2024 12:00
--- NOTE | 2024-08-14 10:52 | XR_ITS ---
The [address] [address] Patient Name: GERA PERDUE MRN: [id number] date: 1945 Sex: F Assigned Patient Location: ER Current Patient Location: ER Accession/Order Number: [id number] Exam Date: 08/14/2024 11:09 Report Date: 08/14/2024 12:00 At the request of: EUGENIA STANLEY Procedure: XR knee LT 3V PROCEDURE: XR femur LT 2V, XR knee LT 3V, XR hip LT 2V w/ pelvis COMPARISON: None. HISTORY: pain FINDINGS: BONES:Chronic complex healed intertrochanteric hip fracture with internal fixation utilizing a retrograde intramedullary cat and dynamic compression screw. Moderate bilateral hip osteoarthritis with joint space narrowing marginal osteophyte formation. Moderate degenerative changes of the spine. No acute fracture of the hip or femur or knee. Severe knee osteoarthritis with [id number] articulation SOFT TISSUES:Negative. No visible soft tissue swelling. EFFUSION:None visible. OTHER: Vascular calcifications XR/XR knee LT 3V IMPRESSION: No acute fracture Electronically authenticated by: NATHANIEL BOYLE Date: 08/14/2024 12:00
--- NOTE | 2024-08-14 10:52 | XR_ITS ---
The [address] [address] Patient Name: GERA PERDUE MRN: [id number] date: 1945 Sex: F Assigned Patient Location: ER Current Patient Location: ER Accession/Order Number: [id number] Exam Date: 08/14/2024 11:09 Report Date: 08/14/2024 12:02 At the request of: EUGENIA STANLEY Procedure: XR chest 1V EXAMINATION: XR chest 1V HISTORY: sob COMPARISON: 05/25/2024 TECHNIQUE: AP portable FINDINGS: LUNGS: No significant pulmonary parenchymal abnormalities. VASCULATURE: Mildly increased pulmonary vasculature. PLEURA: No pneumothorax, effusion, or pleural thickening. CARDIAC: No cardiomegaly or cardiac silhouette abnormality. MEDIASTINUM: No visible mass or adenopathy. Aortic atherosclerosis BONES: No fracture or visible bone lesion. OTHER: Negative. XR/XR chest 1V IMPRESSION: Pulmonary vascular congestion Electronically authenticated by: NATHANIEL BOLYE Date: 08/14/2024 12:02
--- NOTE | 2024-08-14 10:52 | ECG_ITS ---
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
--- NOTE | 2024-08-14 10:54 | ED.GENADUL1 ---
HPI HPI - General Adult General Chief complaint: Nausea/Vomiting/Diarrhea Stated complaint: NAUSEA Time Seen by Provider: 08/14/24 10:52 Source: patient Mode of arrival: ambulance History of Present Illness HPI narrative: The patient is oxygen dependent on 2 L nasal cannula at home coming to us initially with a left knee pain, but she was found by the EMS to be tachypneic, the patient was emotional about her left knee pain in the ER she denies any other complaint of pain or nausea or vomiting or any difficulty breathing She does take 1 breathing treatment daily and she did not take it today except when the EMS arrived and at the moment the patient have no shortness of breath Related Data Home Medications ?Medication ?Instructions ?Recorded ?Confirmed albuterol sulfate 90 mcg/actuation 2 puff inhalation Q4H 08/28/23 08/14/24 aerosol inhaler bupropion HCl 300 mg 24 hr tablet, 300 mg PO QDAY 08/28/23 08/14/24 extended release cholecalciferol (vitamin D3) 50 50 mcg PO DAILY 08/28/23 08/14/24 mcg (2,000 unit) tablet clopidogrel 75 mg tablet 75 mg PO DAILY 08/28/23 08/14/24 pantoprazole 40 mg tablet,delayed 40 mg PO QAM 08/28/23 08/14/24 release paroxetine HCl 40 mg tablet 40 mg PO QAM 08/28/23 08/14/24 potassium chloride 10 mEq 20 meq PO DAILY 08/28/23 05/25/24 tablet,extended release (Klor-Con) pregabalin 75 mg capsule 75 mg PO BID 08/28/23 08/14/24 triamcinolone acetonide 0.1 % 1 applic topical BID 08/28/23 08/14/24 topical cream (Triderm) melatonin 5 mg tablet 5 mg PO QPM 08/14/24 08/14/24 Previous Rx's ?Medication ?Instructions ?Recorded famotidine 20 mg tablet (Pepcid) 20 mg PO BID #10 tabs 08/14/24 furosemide 20 mg tablet (Lasix) 20 mg PO DAILY #3 tabs 08/14/24 ondansetron 4 mg disintegrating 4 mg PO Q8H PRN nausea and 08/14/24 tablet vomiting 2 days #6 tabs prednisone 20 mg tablet 40 mg (2 x 20 mg) PO DAILY 3 days 08/14/24 #6 tabs Allergies Allergy/AdvReac Type Severity Reaction Status Date / Time aspirin Allergy Severe Hives Verified 08/14/24 10:52 Opioid HPI Opioid Management Most Recent Opioid Data: Last Pain Scale 0 10/05/23 10:20 10/05/23 Review of Systems ROS Status of ROS 10 or more systems reviewed and unremarkable except as noted in history and below [facility] Medical History (Updated 08/14/24 @ 14:17 by Martha Giles MD) Anemia ?D64.9 - Anemia, unspecified (ICD-10) HLD (hyperlipidemia) ?E78.5 - Hyperlipidemia, unspecified (ICD-10) ARMAND (obstructive sleep apnea) ?G47.33 - Obstructive sleep apnea (adult) (pediatric) (ICD-10) COPD (chronic obstructive pulmonary disease) ?J44.9 - Chronic obstructive pulmonary disease, unspecified (ICD-10) HTN (hypertension) ?I10 - Essential (primary) hypertension (ICD-10) Surgical History (Updated 08/28/23 @ 16:24 by Sonia Christianson) History of colon surgery ?Z98.890 - Other specified postprocedural states (ICD-10) Social History Smoking status: Former smoker Highest level of school completed/degree received: 11th grade Exam Narrative Exam Narrative: Nurses notes and vital signs reviewed and patient is not hypoxic. General: Well-appearing and in no apparent distress. Skin: Warm, dry, no pallor noted. No rash. Head: Normocephalic, atraumatic. Neck: Supple, non-tender. Eye: Pupils are equal, round and EOMI. No scleral icterus. Ears, Nose, Mouth, and Throat: TM are clear, no nasal mucosal hypertrophy. Oral mucosa is moist, no posterior oropharynx erythema, uvula is mid-line Cardiovascular: Regular Rate and Rhythm without murmur, gallop or rub. Respiratory: No accessory muscle use or respiratory distress. Lungs distant breathing sound bilaterally no wheezing Chest Wall: no tenderness Back: No midline thoracic or lumbar vertebral tenderness. No CVA tenderness Musculoskeletal: normal ROM, no calf or popliteal tenderness ,left knee pain but the patient did not have any effusion and the limitation of flexion due to pain GI: Abdomen is soft, non-distended. Normal bowel sounds. No masses appreciated. No tenderness to palpation. No rebound, guarding, or rigidity noted. Neurological: A&O x4. No cranial nerve dysfunction observed. No truncal ataxia. Moves all extremities. Sensation intact. Psychiatric: Cooperative and interactive. Normal mood and affect. Constitutional Vital Signs, click to edit/add: Last Vital Signs Temp 98.5 F 08/14/24 10:47 Pulse 89 08/14/24 11:31 Resp 22 H 08/14/24 11:31 BP 151/66 H 08/14/24 11:31 Pulse Ox 95 08/14/24 11:33 O2 Del Method Nasal Cannula 08/14/24 10:47 O2 Flow Rate 3 08/14/24 11:33 Course Vital Signs Vital signs: Vital Signs Temperature 98.5 F 08/14/24 10:47 Pulse Rate 98 H 08/14/24 10:47 Respiratory Rate 22 H 08/14/24 10:47 Blood Pressure 122/96 H 08/14/24 10:47 Pulse Oximetry 96 08/14/24 10:47 Oxygen Delivery Method Nasal Cannula 08/14/24 10:47 Oxygen Delivery Flow Rate 3 08/14/24 10:47 Temperature 98.5 F 08/14/24 10:47 Pulse Rate 89 08/14/24 11:31 Respiratory Rate 22 H 08/14/24 11:31 Blood Pressure 151/66 H 08/14/24 11:31 Pulse Oximetry 95 08/14/24 11:33 Oxygen Delivery Method Nasal Cannula 08/14/24 10:47 Oxygen Delivery Flow Rate 3 08/14/24 11:33 Medical Decision Making MDM Narrative Medical decision making narrative: The patient EKG showing sinus rhythm with a heart rate of [address] elevation or depression The patient presented to us initially with a knee pain she was found to have pain with movement She had apparently according to the daughter a fall long time ago more than a month ago and they were worried about the new injury The patient x-ray of the hip femur as well as the knee and the tibia and fibula showed no acute pathology except for the osteoarthritis Patient treated in the ER with Tylenol and steroids after which she was feeling better The patient at home ambulates with a walker and sometimes the wheelchair she does have enough care including her daughter and granddaughter and I did discuss with the family the fact that in case of any need of help at home they can request more help or bring her back to the ER The patient had no shortness of breath in the ER but they did notice in the family that there is some shortness of breath on exertion BNP up visit elevated compared to the baseline and she was started on Lasix 20 mg daily for the next 3 days but she have to follow-up with her primary care doctor within a week for further evaluation The patient had no hypoxemia and she was at her baseline nasal cannula use with no distress The patient nausea and vomiting resolved by the Zofran that she was provided with before arrival right now she could be having mild acid reflux ,she did have mild leukocytosis but that could be secondary to mild gastritis and that why the patient started on Zofran and Pepcid The patient does not have any tenderness on examination of the abdomen and had no abdominal pain complaint at any time The patient is to follow up with primary care physician in next 2-3 days or to return to the emergency department should any of the signs or symptoms worsen or new symptoms develop. The patient agrees with the following Diagnosis and Treatment plan and the patient will be discharged home. Lab Data Labs: Lab Results 08/14/24 Range/Units 11:01 WBC 13.8 H (4.0-11.0) 10^3/uL RBC 4.52 (4.20-5.40) 10^6/uL Hgb 10.4 L (12.0-16.0) g/dL Hct 34.3 L (36.0-48.0) % MCV 75.9 L (81.0-99.0) fL MCH 23.0 L (26.7-34.0) pg MCHC 30.3 (29.9-35.2) g/dL RDW 17.6 H (11.0-15.0) % Plt Count 438 (150-450) 10^3/uL MPV 7.9 L (9.5-13.5) fL Neut % (Auto) 73.6 (43.0-75.0) % Lymph % (Auto) 17.4 L (20.5-60.0) % Ida % (Auto) 6.8 (1.7-12.0) % Eos % (Auto) 1.2 (0.9-7.0) % Baso % (Auto) 0.4 (0.2-2.0) % Neut # (Auto) 10.1 H (1.4-6.5) 10^3/uL Lymph # (Auto) 2.4 (1.2-3.8) 10^3/uL Ida # (Auto) 0.9 H (0.3-0.8) 10^3/uL Eos # (Auto) 0.2 (0.0-0.7) 10^3/uL Baso # (Auto) 0.1 (0.0-0.1) 10^3/uL Abs Immat Gran (auto) 0.08 H (0.00-0.03) 10^3/uL Imm/Tot Granulo (auto) 0.6 H (0.0-0.5) % Sodium 139 (136-145) mmol/L Potassium 4.1 (3.5-5.1) mmol/L Chloride 102 (98-107) mmol/L Carbon Dioxide 28.7 (21.0-32.0) mmol/L Anion Gap 12.4 BUN 12.0 (7.0-18.0) mg/dL Creatinine 1.01 (0.55-1.02) mg/dL Est GFR ( Amer) >60 (>=60 mL/min/1.73m^2) Est GFR (Non-Af Amer) 53 L (>=60 mL/min/1.73m^2) BUN/Creatinine Ratio 11.9 Glucose 89 (74-106) mg/dL Calcium 9.7 (8.5-10.1) mg/dL Total Bilirubin 0.5 (0.2-1.0) mg/dL AST 11 L (15-37) U/L ALT 12 L (14-59) U/L Alkaline Phosphatase 112 (46-116) U/L Troponin I High Sens <4.0 L (4.0-51.3) pg/mL NT-Pro-B Natriuret Pep 722.0 (<=1800.0) pg/mL Total Protein 7.8 (6.4-8.2) g/dL Albumin 2.2 L (3.4-5.0) g/dL Globulin 5.6 g/dL Albumin/Globulin Ratio 0.4 Discharge Plan Discharge Chief Complaint: Nausea/Vomiting/Diarrhea Clinical Impression: Nausea, Knee osteoarthritis, Chest congestion Patient Disposition: Home, Self-Care Time of Disposition Decision: 14:16 Condition: Good Mode of Transportation: Private Vehicle Prescriptions / Home Meds: New famotidine [Pepcid] 20 mg tablet 20 mg PO BID Qty: 10 0RF ondansetron 4 mg tablet,disintegrating 4 mg PO Q8H PRN (Reason: nausea and vomiting) 2 Days Qty: 6 0RF prednisone 20 mg tablet 40 mg PO DAILY 3 Days Qty: 6 0RF furosemide [Lasix] 20 mg tablet 20 mg PO DAILY Qty: 3 0RF No Action albuterol sulfate 90 mcg/actuation HFA aerosol inhaler 2 puff INHALATION Q4H bupropion HCl 300 mg tablet extended release 24 hr 300 mg PO QDAY clopidogrel 75 mg tablet 75 mg PO DAILY pantoprazole 40 mg tablet,delayed release (DR/EC) 40 mg PO QAM paroxetine HCl 40 mg tablet 40 mg PO QAM pregabalin 75 mg capsule 75 mg PO BID cholecalciferol (vitamin D3) 50 mcg (2,000 unit) tablet 50 mcg PO DAILY potassium chloride [Klor-Con 10] 10 mEq tablet extended release 20 meq PO DAILY triamcinolone acetonide [Triderm] 0.1 % cream 1 applic topical BID Rx Instructions: APPLY TO ECZEMA AREAS ON ARMS AND LEGS melatonin 5 mg tablet 5 mg PO QPM Print Language: Welsh Instructions: Osteoarthritis (DC), Acute Nausea and Vomiting (DC) Referrals: AMOS SALAS [Primary Care Provider] - 1 week Discharge Date/Time: 08/14/24 14:38
--- NOTE | 2024-08-14 11:00 | PC.NURSE ---
pt states she fell a month ago at her daughters, has had generalized L leg pain since. Also, c/o last 2 days of nausea and diarrhea. no vomiting. denies abd pain at this time. zofran and toradol given en route. pedal pulses present. Bowel sounds active. pt also has h/o COPD. did not take her morning breathing tx -- wears 3L NC AAT. Was 92% SpO2. Now is 99%. Does have some exp wheezing.
--- OUTSIDE RECORDS SUMMARY | 2024-08-14 11:00 | XMS_ITS | CCD ---
Author Organization [facility] Care Team Providers Care Oxyacetylene Burner Name Role Phone Mely Camarillo Unavailable Unavailable CRYS BARBOZA Consulting Unavailable VERENICE CHILEL Admitting Unavailable ELLEN GONZALEZ Attending Unavailable GENERIC, PHYSICIAN Primary Care Unavailable JIMMY GUZMAN Referring Unavailable DANGELO LOZA Consulting U navailable Generic, Physician Primary Care Provider Unavail able Jorge A Jackson Unavailable Tanya Guerrero Unavailable DO Gustavo Salas Primary Care Provider [phone] DO Hilario Yeung Emergency Provider Unavai DO Gustavo Hernandez Primary Care Provider [phone] DO Richard Pearson Emergency Provider ETHAN Morrissey Emergency Provider MD Jolanta Mckenzie Admit Provider MD Jolanta Mckenzie Attending Provider MD Jesus Alberto Aquino Attending Provider [phone] Dr. Charlie Mondragon II Attending Unavailable TORI ., NARENDALONDRA Admitting Sahra vailable TORI ., NARENDCHAIMATH Attending Sahra dottyble DR SVITLANA HAMMOND Primary Care Unavailable DO Gustavo Salas Primary Care Provider Karen MANUFACTURING ASSISTANT-SRINI Beckford Emergency Provider DO Marshall Dominguez Emergency Provider [phone] MD Jolanta Mckenzie Admit Provider MD Jolanta Mckenzie Attending Provider DO Maury Morrissey Emergency Provider MD Jesus Alberto Aquino Admit Provider [phone] MD Jesus Alberto Aquino Attending Provider [phone] Vonthron LOG HOOKER-TECHNICAL SERVICES SPECIALIST, Mely A Primary Care Provid er Gustavo Salas DO Primary Care Provider [phone] Aubrey METZ, Leah Unavailable Gustavo Salas DO Primary Care Provider GUSTAVO SALAS Primary Care Physician Unavail able JENNA ENGLE Referring Unavailable MARITZA, GUSTAVO A Primary Care Unavailable DO Gustavo Salas Primary Care Provider MD Jenna Engle Attending Provider Karen [facility] Kadie E Emergency Provider MD Lucho Grullon Admit Provider MD Lucho Grullon Attending Provider [phone] JENNA ENGLE Attending Unavailable MARITZA, GUSTAVO A Primary Care Unavailable JENNA ENGLE Attending Unavailable JENNA ENGLE Referring Unavailable MARITZAGUSTAVO Primary Care Unavailable MD Michoacano Mckenzie Attending Provider [phone] Renae Ponce X Attending Unavailable MARITZA, GUSTAVO A Referring Unavailable Orzech Renae X Attending Unavailable Orzech, Renae X Admitting Unavailable MARIELA, RABBIA L Referring Unavailable VONTHRON, MLEY A Primary Care Unavailable MARIELA, RABBIA L Referring Unavailable VONTHRON, MELY A Primary Care Unavailable SHEILA BARRY Referring Unavailable VONTHRON, MELY A Primary Care Unavailable ANAHY BARGER Referring Unavailabl e VONTHRON, MELY A Primary Care Unavailable MAINOUS, FRANCINE M Referring Unavailable VONTHRON, MELY A Primary Care Unavailable MAINOUS, FRANCINE M Referring Unavailable VONTHRON, MELY A Primary Care Unavailable EWRY, CHRISTOPHER Referring Unavailable VONTHRON, MELY A Primary Care Unavailable EWRY, CHRISTOPHER Referring Unavailable VONTHRON, MELY A Primary Care Unavailable CASE, NOE Durham Attending Unavailable CASE, NOE Durham Referring Unavailable VONTHRON, MELY A Primary Care Unavailable CASE, NOE Durham Attending Unavailable CASE, NOE Durham Referring Unavailable VONTHRON, MELY A Primary Care Unavailable MARKELL LIN S Referring Unavailable OOSTRA, CECELIA E Attending Unavailable OOSTRA, CECELIA E Referring Unavailable VONTHRON, MELY A Primary Care Unavailable OOSTRA, CECELIA E Attending Unavailable OOSTRA, CECELIA E Referring Unavailable VONTHRON, MELY A Primary Care Unavailable ASHLEY MOONEY Attending Unavailable ASHLEY MOONEY Referring Unavailable VONTHRON, MELY A Primary Care Unavailable JENNIFER MENA Attending Unavailable JENNIFER MENA Admitting Unavailable DAVID MOTTA Referring Unavailable VONTHRON, MELY A Primary Care Unavailable HYUN MORENO Consulting Unavailable (TTH ONLY), NEURO-CONSULTING Consulting Sahra TACHO Aquino Consulting Unavailable BINGJEANNETTE DAMON U Consulting Unavailable DEVONTE RODRIGUEZ Consulting Unavailable YAZINDIRA GHIATH A Consulting Unavailable RELIEF, [facility] SYMPTOM Cons ulting Unavailable CARDIOLOGY, [facility] PH[facility]ICIAN Consulting Unavailable ED ALVARADO Consulting Unavailable GWYN LOPEZ JR Consulting Unavailable REGINA, BING ANWAR H Attending Unavailable REGINA, BING ANWAR H Referring Unavailable VONTHRON, MELY A Primary Care Unavailable PAUL MCDONALD Referring Unavail able VONTHRON, MELY A Primary Care Unavailable JAMAL, NANCY Referring Unavailable VONTHRON, MELY A Primary Care Unavailable MARITZA GUSTAVO A Primary Care Unavailable RUDI ZELAYA Attending Unavailable TTH ONLY, [facility] ADULT PUL MONARY CONSULT SERVICE Consulting Unavailable RUDI ZELAYA Admitting Unavailable TALA MINOR Consulting Unavailable REGINA, BING ANWAR H Consulting Unavailable LUCINDA, OVIDIO J Referring Unavailable MARITZA, GUSTAVO A Primary Care Unavailable JANE, OVIDIO J Referring Unavailable MARITZA, GUSTAVO A Primary Care Unavailable JANE, OVIDIO J Referring Unavailable MARITZA, GUSTAVO A Primary Care Unavailable GINNY BELCHER Attending Unavailable GUSTAVO SALAS A Referring Unavailable MARITZA, GUSTAVO A Primary Care Unavailable VALONE JR, TODD L Referring Unavailable MARITZA, GUSTAVO A Primary Care Unavailable VALONE JR, TODD L Referring Unavailable MARITZA, GUSTAVO A Primary Care Unavailable VALONE JR, TODD L Referring Unavailable MARITZA, GUSTAVO A Primary Care Unavailable VALONE JR, TODD L Referring Unavailable MARITZA, GUSTAVO A Primary Care Unavailable MARITZA, GUSTAVO A Referring Unavailable MARITZA, GUSTAVO A Primary Care Unavailable HUFDHI, RAIED Referring Unavailable MARITZA, GUSTAVO A Primary Care Unavailable RESER, KEIKO REBECCA Referring Unavailabl e MARITZA, GUSTAVO A Primary Care Unavailable RESER, KEIKO REBECCA Referring Unavailabl e MARITZA, GUSTAVO A Primary Care Unavailable HUFDHI, RAIED Referring Unavailable MARITZA, GUSTAVO A Primary Care Unavailable HUFDHI, RAART Referring Unavailable MARITZA, GUSTAVO A Primary Care Unavailable HUFDHI, RAART Referring Unavailable MARITZA, GUSTAVO A Primary Care Unavailable JAMAL, NANCY Referring Unavailable MARITZAABBE LEMUSREY A Primary Care Unavailable Maritza Gustavo Primary Care Unavailable Jesus Alberto Aquino Admitting Unavailable Jesus Alberto Aquino Attending Unavailable Bullimore, Kadie E Admitting Unavailable Bullimore, Kadie E Attending Unavailable Maritza Gustavo Primary Care Unavailable Maritza, Gustavo Primary Care Unavailable Jenna Engle Admitting Unavailable Jenna Engle Attending Unavailable Maritza Gustavo Primary Care Unavailable Lucho Grullon Admitting Unavailable Michoacano Mckenzie Attending Unavailab Jolanta Cain Admitting Unavailable Jolanta Mckenzie Attending Unavailable Gustavo Salas Primary Care Unavailable RUPERTO BARBOZA Attending Unavailable GUSTAVO SALAS Attending Unavailable GUSTAVO SALAS Referring Unavailable LILLIAM CHEEK Attending Unavailable RUPERTO BARBOZA Attending Unavailable GUSTAVO SALAS Referring Unavailable GUSTAVO SALAS Attending Unavailable GUSTAVO SALAS Referring Unavailable GUSTAVO SALAS Referring Unavailable GUSTAVO SALAS Attending Unavailable GUSTAVO SALAS Referring Unavailable GUSTAVO SALAS Attending Unavailable GUSTAVO SALAS Referring Unavailable GUSTAVO SALAS Attending Unavailable GUSTAVO SALAS Referring Unavailable GUSTAVO SALAS Referring Unavailable GUSTAVO SALAS Attending Unavailable Allergies Allergy Classification Reported Allergen(s) Allergy Type Date of Onset Reaction(s) Facility (11 sources) Acetaminophen / oxyCODONE; Translations: [acetaminophen-ox ycodone] Drug Allergy 3 vomiting [facility] Other (20 sources) Aspirin; Translations: [aspirin] Drug Allergy 9 Other, Nausea/vomiting [facility] (4 sources) Acetaminophen / oxyCODONE; Translations: [OXYCODONE-ACETAM INOPHEN] Drug Allergy 3 GI intolerance [facility] (5 sources) Ibuprofen; Translations: [IBUPROFEN] Drug Allergy 4 Nausea/vomiting [facility] (3 sources) Acetaminophen; Translations: [acetaminophen] Drug Allergy 4 vomiting [facility] (5 sources) oxyCODONE; Translations: [OXYCODONE] Drug Allergy 1 vomiting [facility] (1 source) Acetaminophen / oxyCODONE; Translations: [acetaminophen-ox ycodone] Drug Allergy [facility] Medications Current Medications Medication Drug Class(es) Dates Sig (Normalized) Sig (Original) acetaminophen 500 mg oral tablet (20 sources) Start: 09-20-2023 take 2 tablets by mouth every four hours as needed for pain and fever acetaminophen (TYLENOL EXTRA STRENGTH) 500 mg tablet Take 2 tablets (1,000 mg total) by mouth every 4 (four) hours as needed for pain or fever. 0 09/20/2023 Active Start: 09-05-2020 End: 09-21-2020 take 650 mg by mouth every four hours Acetaminophen Active 650 MG PO Q4H 0 September 21, 2020 1:00am Start: 08-02-2019 650 mg, Oral, EVERY 4 HOURS PRN, Pain Mild (1-3), Pain Mild (1-3) or Fever greater than 100.5 F (38 C), Starting 08/02/19 at 0003 Maximum dose of acetaminophen is 4000 mg from all sources in 24 hours. take 1 tablet by nika th every eight hours as needed acetaminophen (Tylenol) 500 mg tablet Take 1 tablet (500 mg) by mouth every 8 hours if needed for mild pain (1 - 3). Active take 2 capsules by outh every eight hours Acetaminophen 500 MG 2 capsules as needed Orally every 8 hrs PRN Active [id number] 200 actuat albuterol 0.09 mg/actuat metered dose inhaler (20 sources) beta2-Adrenergic Agonist Start: 02-15-2024 Albut alphonse Sulfate Active 2 INH INHALATION Q4H February 15, 2024 12:00am administer with spacer Start: 04-01-2023 End: 12-09-2023 take 2 puff(s) by inhalation every four hours for wheezing albuterol HFA 90 mcg/act inhaler Indications: Panlobular emphysema (CMS/HCC) Inhale 2 puffs every 4 (four) hours if needed for wheezing. 1 g 5 04/01/2023 12/09/2023 Discontinued (Other) Start: 05-31-2022 End: 02-15-2024 Albuterol Sulfate Discontinu ed 2 INH INHALATION Q6H 8 7 May 31, 2022 12:00am February 15, 2024 5:26pm administer with spacer Start: 06-20-2021 take 1 puff(s) by in halation every four hours as needed Albuterol Sulfate HFA 108 (90 Base) MCG/ACT 1 puff as needed Inhalation every 4 hrs for 30 days PRN May, Active Start: 06-20-2021 take 1 puff(s) by in halation every four hours as needed Albuterol Sulfate HFA 108 (90 Base) MCG/ACT 1 puff as needed Inhalation every 4 hrs for 30 days PRN May, Active Start: 08-31-2020 End: 09-21-2020 take 1 puff(s) by inhalation every six hours Albuterol Sulfate (Ventolin Hfa) 90 mcg/actuation HFA aerosol inhaler Discontinued 1 PUFF INHALATION Every 6 hours August 31, 2020 1:00am September 21, 2020 1:41pm Start: 11-15-2017 End: 08-01-2019 take 2.5 mg by inhalation every six hours Albuterol Sulfate Discontinued 2.5 MG INHALATION Q6H November 15, 2017 1:00am August 01, 2019 6:34pm Albuterol Sulfat e (2.5 MG/3ML) 0.083% 1 unit dose Inhalation four times a day DX J44.9 COPD PRN Not-Taking albuterol 0.833 mg/ml / ipratropium bromide 0.167 mg/ml inhalation solution (20 sources) Anticholinergic, beta2-Adrenergic Agonist Start: 01-30-2024 albuterol-ipratropium Inh Sarah Beth 3 mL UD Refill(s) 0 Start Date: 01/30/24 Status: Ordered Start: 01-30-2024 albuterol-ipra tropium Inh Sarah Beth 3 mL UD Refill(s) 0, 180 EA, 0 Refill(s), INHALE CONTENTS OF 1 VIAL (3 ML) VIA NEBULIZER EVERY 12 HOURS Start Date: 01/30/24 Status: Ordered Start: 07-22-2023 ipratropium-al buterol (Duo-Neb) 0.5-2.5 mg/3 mL nebulizer solution Indications: Pulmonary emphysema, unspecified emphysema type (CMS/HCC) , Chronic obstructive pulmonary disease, unspecified COPD type (CMS/HCC) Take 3 mL by nebulization every 12 (twelve) hours. 180 mL 3 07/22/2023 Active Start: 09-05-2020 End: 09-21-2020 take 1 mL by inhalation twice daily Ipratropium-Albuterol Active 3 ML INHALATION Twice daily 250 September 21, 2020 1:00am ipratropium-albu teroL (Duo-Neb) 0.5-2.5 mg/3 mL nebulizer solution Take 3 mL by nebulization every 6 hours. Active azithromycin 250 mg oral tablet (11 sources) Macrolide Antimicrobial Start: 02-17-2024 take 250 mg by mouth once daily Azithromycin Active 250 MG PO Daily 3 February 17, 2024 12:00am Start: 11-15-2017 End: 06-22-2018 take 2 tablets by mouth once daily, then take 1 tablet by mouth once daily Azithromycin (Zithromax) 250 mg tablet Discontinued 250 MG PO Daily November 15, 2017 1:00am June 22, 2018 9:09pm ZPAK-2 tabs day 1, the 1 tab daily for 4 days 24 hr buPROPion hydrochloride 300 mg extended release oral tablet (20 sources) Aminoketone Start: 01-01-2019 End: 09-21-2020 take 300 mg by mouth once daily in the morning Bupropion Hcl Active 300 MG PO Every morning September 21, 2020 1:00am End: 08-02-2019 take 1 tablet by mouth twice daily buPROPion (WELLBUTRIN SR) 100 MG SR tablet Take 100 mg by mouth 2 times daily. 0 08/02/2019 Discontinued (LIST CLEANUP) cefdinir 300 mg oral capsule (3 sources) Cephalosporin Antibacterial Start: 02-17-2024 take 300 mg by mouth twice daily Cefdinir Active 300 MG PO Twice daily 6 February 17, 2024 12:00am Start: 08-20-2023 take 300 mg by mouth twice krunal ly Cefdinir Active 300 MG PO Twice daily 6 August 20, 2023 12:00am cephalexin 500 mg oral capsule (20 sources) Cephalosporin Antibacterial Start: 01-30-2024 End: 02-06-2024 take 1 capsule by mouth every twelve hours cephalexin 500 mg Cap 500 mg = 1 cap(s), Oral, q12hr, X 7 day(s), # 14 cap(s), Refills(s) 0, Pharmacy: [id number], 170, cm, 01/30/24 13:39:00 EDT, Height/Length Dosing, 80.2, kg, 01/30/24 13:39:00 EDT, Weight Dosing Start Date: 01/30/24 Stop Date: 02/06/24 Status: Ordered Start: 07-14-2023 End: 08-17-2023 take 500 mg by mouth twice daily Cephalexin Discontinued 500 MG PO Twice daily 6 July 14, 2023 12:00am August 17, 2023 6:48pm Start: 04-28-2020 End: 08-31-2020 take 500 mg by mouth twice daily Cephalexin Discontinued 500 MG PO Twice daily 10 April 28, 2020 12:00am August 31, 2020 3:52pm Start: 02-25-2020 End: 04-25-2020 take 1 capsule by mouth twice daily Cephalexin (Keflex) 500 mg capsule Discontinued 500 MG PO Twice daily 10 February 25, 2020 12:00am April 25, 2020 5:24pm Start: 01-15-2020 End: 02-23-2020 take 1 capsule by mouth every twelve hours Cephalexin (Keflex) 500 mg capsule Discontinued 500 MG PO Q12H 14 January 15, 2020 12:00am February 23, 2020 2:45pm cholecalciferol 0.025 mg oral tablet (20 sources) Vitamin D Start: 09-21-2020 take 2000 [IU] by mouth once daily Cholecalciferol (Vitamin D3) Active 2000 UNIT PO Daily September 21, 2020 1:00am Start: 08-31-2020 End: 09-21-2020 take 50 ug by mouth once daily Cholecalciferol (Vitami n D3) Discontinued 50 MCG PO Daily August 31, 2020 1:00am September 21, 2020 1:41pm take 1 tablet by nika th twice daily cholecalciferol, vitamin D3, 75 mcg (3,000 unit) tablet Take by mouth. 1 TAB BID Active take 1 capsule by mo uth in the morning cholecalciferol, vitamin D3, 2,000 units capsule Take 1 capsule (2,000 Units total) by mouth in the morning. 0 Active clopidogrel 75 mg oral tablet (19 sources) P2Y12 Platelet Inhibitor Start: 12-31-2022 take 75 mg by mouth once daily Clopidogrel Active 75 MG PO Daily 0 December 31, 2022 1:00am DAPTOmycin in sodium chloride 0.9 % 50 mL IVPB (4 sources) Start: 10-23-2023 End: 11-17-2023 DAPTOmycin in sodium chloride 0.9 % 50 mL IVPB 650 mg daily pharmacy to dose. 50 mL 26 10/23/2023 11/17/2023 Active 0.4 ml enoxaparin sodium 100 mg/ml prefilled syringe (1 source) Low Molecular Weight Heparin Start: 08-02-2019 enoxaparin (LOVENOX) injection 40 mg famotidine 40 mg oral tablet (7 sources) Histamine-2 Receptor Antagonist Start: 02-15-2024 take 20 mg by mouth once daily Famotidine Active 20 MG PO Daily February 15, 2024 12:00am Start: 01-30-2024 famotidine 40 mg Tab 45 EA, 0 Refill(s), TAKE 1/2 TABLET BY MOUTH EVERY DAY, Refills(s) 0 Start Date: 01/30/24 Status: Ordered take 1 tablet by nika th once daily famotidine (Pepcid) 20 mg tablet Take 1 tablet (20 mg) by mouth once daily. Active fluticasone propionate 0.05 mg/actuat metered dose nasal spray (5 sources) Corticosteroid Start: 12-08-2019 take 1 spray(s) nasal route once daily as needed Fluticasone Propionate 50 MCG/ACT 1 spray in each nostril Nasally Once a day PRN Nov, Active Fluticasone-Umecli din-Vilanter (20 sources) Anticholinergic, Corticosteroid, beta2-Adrenergic Agonist Start: 07-10-2023 Fluticasone-Umecl idin-Vilanter (Trelegy Ellipta) 100-62.5-25 mcg Blister With Device Active 1 INH INHALATION Daily July 10, 2023 12:00am Start: 04-01-2023 End: 12-09-2023 take 1 puff(s) by inhalation in the morning Phuohheailp-Mosqfubfj-Oolhfc (Trelegy Ellipta) 100-62.5-25 MCG/ACT aerosol powder Indications: Panlobular emphysema (CMS/HCC) Inhale 1 puff in the morning. 1 each 04/01/2023 12/09/2023 Discontinued (Other) Start: 04-01-2023 take 1 puff(s) by inhalation once daily qnmdpjdybrx-jcecxxxmt-axowftua (TRELEGY ELLIPTA) 100-62.5-25 mcg blister with device Inhale 1 puff once daily. 0 04/01/2023 Active Start: 02-23-2020 End: 04-25-2020 Eebplqbdnne-Ytjpkczge-Hwiwrm er (Trelegy Ellipta) 100-62.5-25 mcg blister with device Discontinued 1 PUFF INHALATION As Directed February 22, 2020 11:00pm April 25, 2020 5:58pm Start: 02-23-2020 End: 04-25-2020 Cgwzzrpaitj-Ozanvgvdt-Ssuilc er (Trelegy Ellipta) 100-62.5-25 mcg blister with device Discontinued 1 PUFF INHALATION As Directed February 23, 2020 12:00am April 25, 2020 6:58pm take 1 puff(s) by inhalation once daily Trelegy Ellipta 100-62.5-25 MCG/INH 1 pu ff Inhalation Once a day for 30 days Active furosemide 20 mg oral tablet (20 sources) Loop Diuretic Start: 09-26-2023 take 1 tablet by mouth once daily furosemide (LASIX) 20 mg tablet Take 1 tablet (20 mg total) by mouth daily. 0 09/26/2023 Active Start: 08-17-2023 take 60 mg by mouth once daily Furosemide Active 60 MG PO Daily August 17, 2023 6:52pm Start: 06-17-2023 End: 08-17-2023 take 1 tablet by mouth once daily Furosemide (Lasix) 40 mg tablet Discontinued 40 MG PO Daily June 17, 2023 12:00am July 10, 2023 1:30pm Start: 09-05-2020 End: 09-21-2020 take 20 mg by mouth once daily Furosemide Discontinued 20 MG PO Daily at 0800 0 September 05, 2020 1:00am September 21, 2020 1:41pm Start: 04-29-2019 End: 02-23-2020 take 1 tablet by mouth every other day Furosemide (Lasix) 20 mg Tablet Discontinued 20 MG PO As Directed April 29, 2019 12:00am February 23, 2020 4:42pm 20 mg po every other day levoFLOXacin 500 mg oral tablet (4 sources) Quinolone Antimicrobial Start: 01-30-2024 levofloxacin 500 mg Tab Refills(s) 0 Start Date: 01/30/24 Status: Ordered Start: 11-28-2023 take 1 tablet by nika th in the morning levoFLOXacin (Levaquin) 500 MG tablet Take 500 mg by mouth in the morning. 0 11/28/2023 Active lisinopril 5 mg oral tablet (20 sources) Angiotensin Converting Enzyme Inhibitor Start: 03-20-2023 End: 12-09-2023 take 5 mg by mouth once daily Lisinopril Active 5 MG PO Daily July 10, 2023 12:00am Start: 12-31-2022 End: 07-10-2023 take 2.5 mg by mouth once daily Lisinopril Discontinued 2.5 MG PO Daily 0 December 31, 2022 1:00am July 10, 2023 2:31pm Start: 12-26-2022 End: 12-31-2022 take 5 mg by mouth once daily Lisinopril Discontinued 5 MG PO Daily December 26, 2022 1:00am December 31, 2022 11:52am Start: 08-31-2020 End: 09-21-2020 take 5 mg by mouth once daily Lisinopril Discontinued 5 MG PO Daily August 31, 2020 1:00am September 21, 2020 1:41pm Start: 04-28-2020 End: 08-31-2020 take 10 mg by mouth once daily Lisinopril Discontinued 10 MG PO Daily April 28, 2020 12:00am August 31, 2020 5:40pm Start: 01-01-2019 End: 04-28-2020 Lisinopril Discontinued TABL ET August 01, 2019 12:00am August 01, 2019 6:35pm melatonin 5 mg oral tablet (14 sources) Start: 02-15-2024 take 5 mg by mouth at bedtime Melatonin Active 5 MG PO Bedtime February 15, 2024 12:00am Start: 01-30-2024 Melatonin 5 mg oral tablet 30 tab(s), 0 Refill(s), Refills(s) 0 Start Date: 01/30/24 Status: Ordered Start: 07-11-2023 take 3 mg by mouth at bedtime Melatonin Active 3 MG PO Bedtime July 11, 2023 12:00am melatonin 5 mg c apsule Take 1 capsule (5 mg) by mouth. 1 TAB NIGHT Active Metoprolol (20 sources) beta-Adrenergic Marylu Start: 01-30-2024 Metopr olol Succinate Er 24hr 50 Mg Tab Metoprolol Succinate Er 24hr 50 Mg Tab Start Date: 01/30/24 Status: Ordered Start: 08-03-2019 End: 01-06-2024 take 50 mg by mouth once daily Metoprolol Succinate Ac tive 50 MG PO Daily September 21, 2020 1:00am Start: 08-02-2019 metoprolol (LO PRESSOR) injection 2.5 mg Start: 11-15-2017 End: 09-21-2020 take 1 tablet by mouth once daily Metoprolol Succinate (Toprol Xl) 100 mg Tablet Extended Release 24 Hr Discontinued 100 MG PO Daily January 01, 2019 1:00am September 21, 2020 1:41pm take 1 tablet by nika th once daily metoprolol (LOPRESSOR) 100 MG tablet Take 100 mg by mouth daily 0 Active morphine injection 2 mg (1 source) Start: 08-02-2019 morphine injec tion 2 mg Multivitamin Adults 50+ - (5 sources) Start: 03-19-2019 take 1 tablet by mouth once daily Multivitamin Adults 50+ - 1 tab(s) Orally Daily February, Active nystatin 100 unt/mg topical powder (20 sources) Polyene Antifungal Start: 01-30-2024 nystatin Top 100,000 units/g Pwdr Refill(s) 0 Start Date: 01/30/24 Status: Ordered Start: 06-17-2023 nystatin (MYCO STATIN) powder Apply 1 Application topically in the morning and 1 Application before bedtime. Apply to abdominal folds and breast. . 0 06/17/2023 Active Start: 06-17-2023 nystatin (Myco statin) [id number] UNIT/GM powder Indications: Rash APPLY TOPICALLY TO THE AFFECTED AREA(S) TWICE A DAY 60 g 0 06/17/2023 Active Start: 12-31-2022 End: 07-10-2023 Nystatin (Nystop) 100,000 un it/gram powder Active 1 APPLIC TOPICAL Twice daily July 10, 2023 12:00am Start: 12-26-2022 End: 07-10-2023 Nystatin Discontinued 1 APPL IC TOPICAL Twice daily December 26, 2022 1:00am July 10, 2023 2:32pm Start: 02-25-2020 End: 04-25-2020 Nystatin (Nystop) 100,000 un it/gram Powder Discontinued 1 APPLIC TOPICAL Twice daily 0 February 25, 2020 12:00am April 25, 2020 5:24pm ondansetron 4 mg oral tablet (5 sources) Serotonin-3 Receptor Antagonist Start: 09-20-2023 take 1 tablet by mouth every six hours as needed for nausea and vomiting ondansetron (ZOFRAN) 4 mg tablet Take 1 tablet (4 mg total) by mouth every 6 (six) hours as needed for nausea or vomiting. 0 09/20/2023 Active Start: 08-02-2019 4 mg, Intraven ous, EVERY 6 HOURS PRN, Nausea, Starting 08/02/19 at 0003 pantoprazole 40 mg delayed release oral tablet (20 sources) Proton Pump Inhibitor Start: 01-01-2019 End: 09-21-2020 take 1 tablet by mouth once daily Pantoprazole (Protonix) 40 mg tablet,delayed release (DR/EC) Active 40 MG PO Daily September 21, 2020 1:38pm Paroxetine (20 sources) Serotonin Reuptake Inhibitor Start: 01-30-2024 paroxetine Oral, Refills(s) 0 Start Date: 01/30/24 Status: Ordered Start: 11-15-2017 End: 09-21-2020 take 1 tablet by mouth once daily in the morning Paroxetine Hcl (Paxil) 40 mg tablet Active 40 MG PO Every morning 30 September 21, 2020 1:38pm potassium chloride 10 meq extended release oral capsule (13 sources) Start: 02-15-2024 take 20 mEq by mouth once daily Potassium Chloride Active 20 MEQ PO Daily February 15, 2024 12:00am Start: 01-30-2024 potassium chlo ride 10 mEq Cap-ER Refills(s) 0 Start Date: 01/30/24 Status: Ordered Start: 09-01-2023 potassium chlo ride ER (Micro-K) 10 MEQ ER capsule Take 20 mEq by mouth in the morning. 0 09/01/2023 Active take 1 tablet by nika th once daily potassium chloride CR 10 mEq ER tablet Take 1 tablet (10 mEq) by mouth once daily. Do not crush, chew, or split. Active predniSONE 20 mg oral tablet (20 sources) Start: 08-02-2023 take 1 tablet by mouth once daily predniSONE (Deltasone) 20 MG tablet Indications: Chronic obstructive pulmonary disease with acute exacerbation (CMS/HCC) TAKE 1 TABLET BY MOUTH ONCE A DAY 30 tablet 0 08/02/2023 Active Start: 07-14-2023 End: 08-20-2023 take 20 mg by mouth once daily, then take 10 mg by mouth once daily Prednisone Discontinued 20 MG PO Daily 10 02July 14, 2023 12:00am August 20, 2023 1:29pm 20mg daily for 3 days then 10mg daily for 3 days Start: 05-31-2022 End: 12-26-2022 take 50 mg by mouth once daily Prednisone Discontinued 50 MG PO Daily 03 01May 31, 2022 12:00am December 26, 2022 11:27pm Start: 11-15-2017 End: 08-01-2019 take 60 mg by mouth once daily at mealtime Prednisone Discontinued 60 MG PO Daily 11 03November 15, 2017 1:00am August 01, 2019 6:32pm administer with food or milk pregabalin (20 sources) Start: 01-30-2024 pregabalin Ora l, Refills(s) 0 Start Date: 01/30/24 Status: Ordered Start: 02-23-2020 End: 09-21-2020 take 75 mg by mouth twice daily Pregabalin Discontinued 75 MG PO Twice daily 6 February 25, 2020 1:29pm April 25, 2020 5:24pm QUEtiapine 50 mg oral tablet (4 sources) Atypical Antipsychotic Start: 10-23-2023 take 1 tablet by mouth once daily QUEtiapine (SEROquel) 50 mg tablet Take 1 tablet (50 mg total) by mouth nightly. 0 10/23/2023 Active sennosides, chcf 8.6 mg oral tablet (2 sources) Start: 09-21-2020 take 1 tablet by mouth once daily at bedtime Sennosides (Senna Lax) 8.6 mg Tablet Active 1 TAB PO Daily at bedtime September 21, 2020 12:00am 1000 ml sodium chloride 9 mg/ml injection (1 source) Start: 08-02-2019 Intravenous, at 100 mL/hr, CONTINUOUS, Starting 08/02/19 at 0030 triamcinolone acetonide 1 mg/ml topical cream (12 sources) Corticosteroid Start: 12-26-2022 Triamcinolone Acetonide Active 1 APPLIC TOPICAL Twice daily December 26, 2022 1:00am Start: 06-19-2017 Kenalog -40 mg May, 40 mg Completed/Discontinued Medications Medication Drug Class(es) Dates Sig (Normalized) Sig (Original) acetaminophen 325 mg / HYDROcodone bitartrate 5 mg oral tablet (20 sources) Opioid Agonist Start: 01-15-2020 End: 02-23-2020 take 1 tablet by mouth every four to six hours Hydrocodone-Acetami nophen ([place]) 5-325 mg tablet Discontinued 1 TAB PO EVERY 4-6 HOURS 10 January 15, 2020 February 23, 2020 2:44pm Start: 08-02-2019 HYDROcodone-ac etaminophen (NORCO) 5-325 MG per tablet 1 tablet Start: 01-02-2019 End: 01-12-2019 take 1 tablet by mouth every six hours Hydrocodone-Acetaminophen ([place]ark) 5-325 mg tablet Discontinued 1 TAB PO Q6H 20 January 02, 2019 January 12, 2019 6:44am Start: 06-22-2018 End: 08-01-2019 take 1 tablet by mouth every four to six hours Hydrocodone-Acetaminophen ([place]ark) 5-325 mg tablet Discontinued 1 TAB PO EVERY 4-6 HOURS June 22, 2018 August 01, 2019 6:32pm End: 08-02-2019 take 1 tablet by mouth every six hours as needed HYDROcodone-acetaminophen (VICODIN) 5-50 0 MG per tablet Take 1 tablet by mouth every 6 hours as needed. 0 08/02/2019 Discontinued (LIST CLEANUP) acetaminophen 325 mg / oxyCODONE hydrochloride 5 mg oral tablet (10 sources) Opioid Agonist Start: 04-23-2018 End: 06-22-2018 take 1 tablet by mouth every four to six hours Oxycodone-Acetaminophen (Percocet) 5-325 mg tablet Discontinued 1 TAB PO EVERY 4-6 HOURS April 23, 2018 June 22, 2018 9:09pm Albuterol (Eqv-ProAir HFA) 90 mcg/inh inhalation aerosol (2 sources) Start: 01-30-2024 Albuterol (Eqv-ProAir HFA) 90 mcg/inh inhalation aerosol Refill(s) 0, 8 EA, 0 Refill(s), INHALE 2 PUFFS BY MOUTH EVERY 4 HOURS IF NEEDED FOR WHEEZING OR SHORTNESS OF BREATH Start Date: 01/30/24 Status: Ordered alendronic acid 70 mg oral tablet (20 sources) Bisphosphonate Start: 05-30-2023 alendronate (FOSAMAX) 70 mg tablet Take 1 tablet (70 mg total) by mouth every 7 days. Give every Saturday. 0 05/30/2023 Active Start: 09-21-2020 End: 12-09-2023 take 70 mg by mouth every week Alendronate Active 70 M G PO every week September 21, 2020 1:38pm must sit up for 30min post admin Start: 08-31-2020 End: 09-21-2020 Alendronate Discontinued MG PO August 31, 2020 1:00am September 21, 2020 1:38pm must sit up for 30min post admin Start: 08-01-2019 End: 02-23-2020 take 70 mg by mouth every week Alendronate Discontinue d 70 MG PO every week August 01, 2019 12:00am February 23, 2020 4:42pm aspirin 81 mg delayed release oral tablet (20 sources) Platelet Aggregation Inhibitor, Nonsteroidal Anti-inflammatory Drug Start: 04-28-2020 End: 12-26-2022 take 81 mg by mouth once daily Aspirin Discontinued 81 MG PO Daily 30 30 November 25th, 2020 1:00am December 26, 2022 11:26pm Start: 08-02-2019 aspirin chewab le tablet 81 mg Start: 04-29-2019 End: 04-25-2020 take 81 mg by mouth once daily Aspirin Discontinued 81 MG PO Daily April 29, 2019 12:00am April 25, 2020 6:57pm take 1 tablet by nika th once daily Aspirin 81 81 MG 1 tablet Orally Once a day Active atorvastatin 40 mg oral tablet (20 sources) HMG-CoA Reductase Inhibitor Start: 04-28-2020 End: 09-21-2020 atorvastatin 40 mg Tab 90 EA, 0 Refill(s), TAKE 1 TABLET BY MOUTH EVERY DAY, Refills(s) 0 Start Date: 01/30/24 Status: Ordered Start: 01-12-2019 End: 04-28-2020 take 1 tablet by mouth once daily Atorvastatin (Lipitor) 20 mg Tablet Discontinued 20 MG PO Daily January 12, 2019 12:00am April 28, 2020 11:19am budesonide 0.25 mg/ml inhalation suspension (20 sources) Corticosteroid Start: 09-05-2020 End: 07-10-2023 take 0.5 mg by inhalation twice daily Budesonide Discontinued 0.5 MG INHALATION BID@0600,1800 100 September 21, 2020 1:00am July 10, 2023 2:32pm 120 actuat budesonide 0.16 mg/actuat / formoterol fumarate 0.0045 mg/actuat metered dose inhaler (10 sources) Corticosteroid, beta2-Adrenergic Agonist Start: 11-15-2017 End: 02-23-2020 Budesonide-Formote rol (Symbicort) 160-4.5 mcg/actuation Hfa Aerosol Inhaler Discontinued 1 PUFF INHALATION As Directed November 15, 2017 1:00am February 23, 2020 4:43pm Calcium (8 sources) Phosphate Binder, Calcium Start: 12-26-2022 End: 08-17-2023 take 600 mg by mouth once daily Calcium Discontinued 600 MG PO Daily December 26, 2022 1:00am August 17, 2023 6:52pm Start: 12-26-2022 take 600 mg by mouth once abby y Calcium Active 600 MG PO Daily December 26, 2022 1:00am Start: 12-26-2022 take 600 mg by mouth once abby y Calcium Active 600 MG PO Daily December 26, 2022 12:00am calcium carbonate 1250 mg chewable tablet (19 sources) Start: 12-26-2022 End: 08-17-2023 take 500 mg by mouth once daily Calcium Carbonate Discontinued 500 MG PO Daily December 26, 2022 1:00am August 17, 2023 6:51pm Start: 05-05-2020 take 1 tablet by nika th every twelve hours calcium carbonate 1500 (600 Ca) MG tablet Take 1 tablet by mouth every 12 (twelve) hours. 0 05/05/2020 Active take 1 tablet by nika th twice daily at mealtime calcium carbonate 600 mg calcium (1,500 mg) tablet Take 600 mg by mouth 2 times a day with meals. Active take 1 tablet by nika th every twenty-four hours Calcium 1250 MG 1 tablet Orally Once a day Active cefTRIAXone 1000 mg injection (10 sources) Cephalosporin Antibacterial Start: 09-05-2020 End: 09-21-2020 take 1 g intravenously every twenty-four hours Ceftriaxone Discontinued 1 GM IV Q24H 0 September 05, 2020 1:00am September 21, 2020 1:41pm docusate sodium 100 mg oral capsule (10 sources) Start: 09-05-2020 End: 09-21-2020 take 2 capsules by mouth twice daily Docusate Sodium (Dok) 100 mg Capsule Discontinued 200 MG PO Twice daily 0 September 05, 2020 1:00am September 21, 2020 1:41pm doxycycline hyclate 100 mg oral capsule (6 sources) Tetracycline-clas s Drug Start: 06-17-2023 End: 07-10-2023 take 100 mg by mouth twice daily Doxycycline Hyclate Discontinued 100 MG PO Twice daily 14 June 17, 2023 12:00am July 10, 2023 1:38pm ergocalciferol 1.25 mg oral capsule (15 sources) Provitamin D2 Compound Start: 04-28-2020 End: 12-26-2022 take 62732 [IU] by mouth every month Ergocalciferol (Vitamin D2) Discontinued 52882 UNIT PO every month April 28, 2020 12:00am December 26, 2022 11:26pm take 1 capsule by mouth once krunal ly Ergocalciferol 50 MCG (2000 UT) 1 capsule Orally Once a day Active 72 hr fentaNYL 0.012 mg/hr transdermal system (10 sources) Opioid Agonist Start: 09-21-2020 End: 12-26-2022 Fentanyl Discontinued 12 MCG TRANSDERML Every 72 hours 3 September 21, 2020 December 26, 2022 11:27pm gabapentin 400 mg oral capsule (10 sources) Anti-epileptic Agent Start: 01-01-2019 End: 02-23-2020 take 400 mg by mouth three times daily Gabapentin Discontinued 400 MG PO Three times daily January 01, 2019 1:00am February 23, 2020 4:42pm heparin sodium, porcine 5000 unt/ml injectable solution (10 sources) Unfractionated Heparin, Anti-coagulant Start: 09-05-2020 End: 09-21-2020 inject 5000 [IU] by subcutaneous injection every twelve hours Heparin (Porcine) Discontinued 5000 UNIT SUBCUT Every 12 hours 0 September 05, 2020 1:00am September 21, 2020 1:41pm hydrOXYzine hydrochloride 25 mg oral tablet (15 sources) Antihistamine Start: 02-23-2020 End: 09-05-2020 take 25 mg by mouth every eight hours Hydroxyzine Hcl Discontinued 25 MG PO Q8H February 23, 2020 12:00am September 05, 2020 1:49pm ammonium lactate 120 mg/ml topical cream (10 sources) Start: 12-26-2022 End: 08-17-2023 Ammonium Lactate Discontinued 1 APPLIC TOPICAL Twice daily December 26, 2022 1:00am August 17, 2023 6:51pm Start: 02-13-2022 End: 12-09-2023 ammonium lactate (Lac-Hydrin ) 12 % lotion Apply 1 application topically every 12 (twelve) hours. 0 02/13/2022 12/09/2023 Discontinued (Other) mesalamine 66.7 mg/ml enema (1 source) Aminosalicylate Start: 09-08-2012 End: 08-02-2019 take 60 mL rectal route once daily mesalamine (ROWASA) [address] 60 mLs rectally nightly. 1 enema 3 09/08/2012 08/02/2019 Discontinued miconazole nitrate 20 mg/ml topical cream (15 sources) Azole Antifungal Start: 04-28-2020 End: 09-05-2020 Miconazole Nitrate (Antifungal Cream (Miconazole)) 2 % Cream Discontinued 1 APPLIC TOPICAL Twice daily April 28, 2020 12:00am September 05, 2020 1:49pm Erythema of skin folds of abdomen, breast and groin Miconazole Nitra te 2 % 1 application Externally Twice a day prn Active Fjoumcqwavew-Rbvnlmik-Cgrarc (Multivitamin 50 Plus) Tablet (10 sources) Start: 02-23-2020 End: 04-25-2020 Bgwmfborlsus-Lafqwlnk-Iblfff (Multivitamin 50 Plus) Tablet Discontinued 1 TAB PO Daily February 22, 2020 11:00pm April 25, 2020 5:58pm Start: 02-23-2020 End: 04-25-2020 Knmqzcvfgoyj-Kavndvsb-Vfwpdf (Multivitamin 50 Plus) Tablet Discontinued 1 TAB PO Daily February 23, 2020 12:00am April 25, 2020 6:58pm naproxen 500 mg oral tablet (10 sources) Nonsteroidal Anti-inflammatory Drug Start: 01-02-2019 End: 08-01-2019 take 500 mg by mouth twice daily at mealtime Naproxen Discontinued 500 MG PO Twice daily January 02, 2019 1:00am August 01, 2019 6:31pm administer with food or milk neomycin sulfate 500 mg oral tablet (1 source) Aminoglycoside Antibacterial Start: 01-29-2012 End: 08-02-2019 take 1 tablet by mouth three times daily, then take 2 tablets by mouth once daily neomycin (MYCIFRADIN) 500 MG tablet Indications: Diverticulitis of colon (without mention of hemorrhage)(562.11 ) Take 1 tablet by mouth 3 times daily. Pt to take 2 tablets at 1pm, 2pm, and 11pm day prior to surgery 6 tablet 0 01/29/2012 08/02/2019 Discontinued (LIST CLEANUP) nitroglycerin 0.4 mg sublingual tablet (15 sources) Nitrate Vasodilator Start: 04-29-2019 End: 04-25-2020 Nitroglycerin Discontinued 0.4 MG SUBLINGUAL Q5M April 29, 2019 12:00am April 25, 2020 6:58pm Nitroglycerin 0. [address] ONE TABLET UNDER TONGUE FOR CHEST PAIN, MAY REPEAT EVERY 5 MINUTES, AFTER 3 DOSES CALL 911 Sublingual as needed Active [place]-3 Fatty Acids-Fish Oil (Fish Oil) 300-1,000 mg capsule (10 sources) Start: 08-01-2019 End: 02-23-2020 take 1 capsule by mouth once daily [place]-3 Fatty Acids-Fish Oil (Fish Oil) 300-1,000 mg capsule Discontinued 1000 MG PO Daily July 31, 2019 11:00pm February 23, 2020 3:42pm Start: 08-01-2019 End: 02-23-2020 take 1 capsule by mouth once daily [place]-3 Fatty Acids-Fish Oil (Fish Oil) 300-1,000 mg capsule Discontinued 1000 MG PO Daily August 01, 2019 12:00am February 23, 2020 4:42pm omeprazole 20 mg delayed release oral capsule (1 source) Proton Pump Inhibitor End: 08-02-2019 take 1 capsule by mouth once daily omeprazole (PRILOSEC) 20 MG capsule Take 20 mg by mouth daily. 0 08/02/2019 Discontinued (LIST CLEANUP) oxybutynin chloride 5 mg oral tablet (1 source) Cholinergic Muscarinic Antagonist End: 08-02-2019 take 1 tablet by mouth three times daily oxybutynin (DITROPAN) 5 MG tablet Take 5 mg by mouth 3 times daily. 0 08/02/2019 Discontinued (LIST CLEANUP) oxyCODONE hydrochloride 5 mg oral tablet (10 sources) Opioid Agonist Start: 09-21-2020 End: 12-26-2022 take 5 mg by mouth every six hours Oxycodone Discontinued 5 MG PO Q6H 20 5 September 21, 2020 December 26, 2022 11:27pm Pt Unable To Verify (10 sources) Start: 08-31-2020 End: 09-05-2020 Pt Unable To Verify Discontinued August 31, 2020 12:00am September 05, 2020 12:49pm Start: 08-31-2020 End: 09-05-2020 Pt Unable To Verify Disconti nued August 31, 2020 1:00am September 05, 2020 1:49pm raNITIdine 150 mg oral tablet (10 sources) Histamine-2 Receptor Antagonist Start: 01-01-2019 End: 08-01-2019 take 1 tablet by mouth once daily Ranitidine Hcl (Zantac) 150 mg Tablet Discontinued 150 MG PO Daily January 01, 2019 1:00am August 01, 2019 6:35pm risperiDONE 2 mg oral tablet (11 sources) Atypical Antipsychotic Start: 01-01-2019 End: 04-25-2020 take 1 tablet by mouth once daily at bedtime Risperidone (Risperdal) 2 mg Tablet Discontinued 2 MG PO Daily at bedtime January 01, 2019 1:00am April 25, 2020 6:58pm Sennosides (Senna Lax) 8.6 mg Tablet (8 sources) Start: 09-21-2020 End: 12-26-2022 take 1 tablet by mouth once daily at bedtime Sennosides (Senna Lax) 8.6 mg Tablet Discontinued 1 TAB PO Daily at bedtime 30 September 21, 2020 1:00am December 26, 2022 11:27pm Start: 09-21-2020 End: 12-26-2022 take 1 tablet by mouth once daily at bedtime Sennosides (Senna Lax) 8.6 mg Tablet Discontinued 1 TAB PO Daily at bedtime September 21, 2020 12:00am December 26, 2022 10:27pm simvastatin 40 mg oral tablet (13 sources) HMG-CoA Reductase Inhibitor Start: 11-15-2017 End: 12-09-2023 take 40 mg by mouth once daily in the evening Simvastatin Discontinued 40 MG PO Every evening November 15, 2017 1:00am April 29, 2019 8:29am ticagrelor 90 mg oral tablet (20 sources) Start: 04-29-2019 End: 12-26-2022 take 1 tablet by mouth twice daily Ticagrelor (Brilinta) 90 mg Tablet Discontinued 90 MG PO Twice daily September 21, 2020 1:00am December 26, 2022 11:27pm traZODone hydrochloride 100 mg oral tablet (10 sources) Serotonin Reuptake Inhibitor Start: 01-01-2019 End: 09-01-2020 take 100 mg by mouth once daily at bedtime Trazodone Discontinued 100 MG PO Daily at bedtime January 01, 2019 1:00am September 01, 2020 1:53pm Problems Active Problems Problem Classification Problem Date Documented Da te Episodic/Chronic Acute cerebrovascular disease (10 sources) Cerebrovascular accident; Translations: [Cerebral infarction, unspecified] 04-26-2020 Chronic Administrative/social admission (20 sources) Reduced mobility; Translations: [Other reduced mobility] Onset: 3 Resolved: 3 04-28-2020 Episodic Allergic reactions (4 sources) Inflammatory dermatosis; Translations: [Dermatitis, unspecified] Onset: 3 06-14-2023 Episodic Anxiety disorders (8 sources) Anxiety; Translations: [Anxiety disorder, unspecified] Onset: 3 10-07-2023 Chronic Bacterial infection; unspecified site (2 sources) Streptococcal infection, unspecified site; Translations: [Resistance to vancomycin] Onset: 4 Episodic Calculus of urinary tract (5 sources) Kidney stone; Translations: [Calculus of kidney] Episodic Cardiac dysrhythmias (6 sources) Longstanding persistent atrial fibrillation; Translations: [Longstanding persistent atrial fibrillation] Onset: 9 08-02-2019 Chronic Chronic kidney disease (9 sources) Chronic kidney disease stage 3A ; Translations: [Stage 3a chronic kidney disease (HCC) ([facility])] Onset: 3 12-09-2023 Chronic Chronic kidney disease (3 sources) Chronic kidney disease; Translations: [Chronic kidney disease, stage 3b ([facility])] Onset: 4 Chronic obstructive pulmonary disease and bronchiectasis (20 sources) Chronic obstructive lung disease; Translations: [Chronic obstructive pulmonary disease, unspecified] Onset: 3 09-06-2020 Chronic Chronic ulcer of skin (6 sources) Non-pressure chronic ulcer of other part of left foot with fat layer exposed; Translations: [Ulcer of other part of foot] Onset: 3 10-07-2023 Chronic Congestive heart failure; nonhypertensive (8 sources) Congestive heart failure; Translations: [Heart failure, unspecified] 06-25-2023 Chronic Coronary atherosclerosis and other heart disease (20 sources) Coronary arteriosclerosis; Translations: [Disorder of cardiovascular system] Onset: 9 08-02-2019 Chronic Coronary atherosclerosis and other heart disease (2 sources) Coronary angioplasty status; Translations: [Coronary angioplasty status] Onset: 4 Episodic Deficiency and other anemia (10 sources) Anemia; Translations: [Anemia, unspecified] 09-06-2020 Episodic Deficiency and other anemia (5 sources) Microcytic anemia; Translations: [Iron deficiency anemia, unspecified] Onset: 4 01-06-2024 Episodic Deficiency and other anemia (3 sources) Iron deficiency anemia, unspecified; Translations: [Iron deficiency anemia, unspecified] Onset: 4 Episodic Delirium, dementia, and amnestic and other cognitive disorders (1 source) Alzheimer's disease, unspecified; Translations: [Alzheimer's disease, unspecified] Onset: 4 Chronic Diabetes mellitus without complication (2 sources) Impaired fasting glycemia 01-23-2024 Episodic Diseases of white blood cells (10 sources) Leukocytosis; Translations: [Elevated white blood cell count, unspecified] 09-06-2020 Chronic Disorders of lipid metabolism (20 sources) Mixed hyperlipidemia; Translations: [Hyperlipidemia] Onset: 9 08-02-2019 Chronic Diverticulosis and diverticulitis (4 sources) Diverticular disease; Translations: [Diverticulosis of intestine, part unspecified, without perforation or abscess without bleeding] Onset: 3 06-14-2023 Chronic Esophageal disorders (20 sources) Gastroesophageal reflux disease; Translations: [Gastro-esophageal reflux disease without esophagitis] Onset: 2 Resolved: 2 Chronic Essential hypertension (20 sources) Essential hypertension; Translations: [Hypertensive disorder] Onset: 9 Resolved: 3 08-02-2019 Chronic Fluid and electrolyte disorders (2 sources) Hyperkalemia; Translations: [Hypokalemia] Onset: 3 Episodic Fracture of neck of femur (hip) (20 sources) Intertrochanteric fracture; Translations: [Displaced intertrochanteric fracture of unspecified femur, initial encounter for closed fracture] 08-31-2020 Episodic Genitourinary symptoms and ill-defined conditions (5 sources) Incontinence; Translations: [Unspecified urinary incontinence] Onset: 3 06-14-2023 Chronic Genitourinary symptoms and ill-defined conditions (1 source) Retention of urine; Translations: [Retention of urine, unspecified] Onset: 4 Episodic Hypertension with complications and secondary hypertension (1 source) Hypertensive chronic kidney disease with stage 1 through stage 4 chronic kidney disease, or unspecified chronic kidney disease; Translations: [Hypertensive chronic kidney disease with stage 1 through stage 4 chronic kidney disease, or unspecified chronic kidney disease] Onset: 4 Chronic Mood disorders (20 sources) Severe recurrent major depression without psychotic features; Translations: [Major depressive disorder, recurrent severe without psychotic features] Onset: 2 Resolved: 2 Chronic Mycoses (4 sources) Onychomycosis; Translations: [Tinea unguium] Onset: 3 06-14-2023 Episodic Nausea and vomiting (4 sources) Nausea and vomiting; Translations: [Nausea with vomiting, unspecified] 02-14-2024 Episodic Nutritional deficiencies (16 sources) Vitamin D deficiency; Translations: [Vitamin D deficiency, unspecified] Onset: 4 04-28-2020 Chronic Occlusion or stenosis of precerebral arteries (19 sources) Bilateral stenosis of carotid arteries; Translations: [Occlusion and stenosis of bilateral carotid arteries] Onset: 3 04-28-2020 Chronic Osteoarthritis (20 sources) Osteoarthritis of left knee joint; Translations: [Unilateral primary osteoarthritis, left knee] Onset: 3 03-28-2023 Chronic Osteoporosis (17 sources) Senile osteoporosis; Translations: [Age-related osteoporosis without current pathological fracture] Onset: 3 10-07-2023 Chronic Other aftercare (4 sources) Post-discharge follow-up; Translations: [Encounter for follow-up examination after completed treatment for conditions other than malignant neoplasm] Onset: 3 12-09-2023 Episodic Other and ill-defined heart disease (2 sources) Heart disease; Translations: [Heart disease, unspecified] Onset: 3 06-14-2023 Chronic Other and unspecified benign neoplasm (4 sources) Polyp of colon; Translations: [Polyp of colon] Onset: 3 06-14-2023 Episodic Other circulatory disease (10 sources) Low blood pressure; Translations: [Hypotension, unspecified] 08-31-2020 Episodic Other connective tissue disease (4 sources) History of total hip arthroplasty; Translations: [Presence of left artificial hip joint] Onset: 3 06-14-2023 Chronic Other gastrointestinal disorders (2 sources) H/O: colostomy; Translations: [Status post Aman procedure (HCC)] Onset: 9 08-02-2019 Chronic Other gastrointestinal disorders (1 source) Dysphagia, oropharyngeal phase; Translations: [Dysphagia, oropharyngeal phase] Onset: 4 Episodic Other infections; including parasitic (1 source) Personal history of other infectious and parasitic diseases; Translations: [Personal history of other infectious and parasitic diseases] Onset: 4 Episodic Other inflammatory condition of skin (10 sources) Intertrigo; Translations: [Erythema intertrigo] 04-28-2020 Episodic Other injuries and conditions due to external causes (8 sources) Injury of head; Translations: [Unspecified injury of head, initial encounter] 12-26-2022 Episodic Other injuries and conditions due to external causes (5 sources) Unspecified injury of head, initial encounter; Translations: [Head injury, unspecified] 12-26-2022 Episodic Other injuries and conditions due to external causes (5 sources) Closed injury of head; Translations: [Unspecified injury of head, initial encounter] 07-10-2023 Episodic Other lower respiratory disease (14 sources) Dyspnea; Translations: [Shortness of breath] Onset: 3 12-09-2023 Episodic Other lower respiratory disease (2 sources) Wheezing; Translations: [Wheezing] 12-09-2023 Episodic Other lower respiratory disease (5 sources) Productive cough ; Translations: [Cough with expectoration] Onset: 4 01-06-2024 Episodic Other lower respiratory disease (2 sources) Hypoxia 01-23-2024 Episodic Other lower respiratory disease (6 sources) Shortness of breath; Translations: [Shortness of breath] Onset: 4 Episodic Other nervous system disorders (10 sources) Chronic pain; Translations: [Other chronic pain] Chronic Other nervous system disorders (6 sources) Disorder of brain; Translations: [Encephalopathy, unspecified] Onset: 3 10-07-2023 Chronic Other nervous system disorders (10 sources) Disturbance in speech; Translations: [Unspecified speech disturbances] 04-26-2020 Episodic Other nervous system disorders (10 sources) Postoperative pain ; Translations: [Other acute postprocedural pain] 09-06-2020 Episodic Other nervous system disorders (2 sources) Post-surgery back pain 01-23-2024 Episodic Other non-traumatic joint disorders (10 sources) Hip pain; Translations: [Pain in unspecified hip] 05-31-2022 Episodic Other non-traumatic joint disorders (1 source) Pain in unspecified hip; Translations: [Pain in joint, pelvic region and thigh] 12-31-2022 Episodic Other non-traumatic joint disorders (4 sources) Sinus tarsi syndrome; Translations: [Pain in left ankle and joints of left foot] Onset: 3 06-14-2023 Episodic Other nutritional; endocrine; and metabolic disorders (15 sources) Body mass index 30+ - obesity; Translations: [Body mass index (BMI) 37.0-37.9, adult] Onset: 4 Resolved: 4 01-06-2024 Chronic Other nutritional; endocrine; and metabolic disorders (12 sources) Obesity; Translations: [Obesity, unspecified] Onset: 3 09-06-2020 Chronic Other nutritional; endocrine; and metabolic disorders (2 sources) Body mass index (BMI) 35.0-35.9, adult; Translations: [Body mass index (BMI) 35.0-35.9, adult] Onset: 4 Chronic Other nutritional; endocrine; and metabolic disorders (2 sources) Body mass index (BMI) 32.0-32.9, adult; Translations: [Body mass index (BMI) 32.0-32.9, adult] Onset: 4 Chronic Other nutritional; endocrine; and metabolic disorders (1 source) Hypomagnesemia; Translations: [Hypomagnesemia] Onset: 3 Chronic Other screening for suspected conditions (not mental disorders or infectious disease) (1 source) Abnormal findings on diagnostic imaging of other specified body structures; Translations: [Abnormal findings on diagnostic imaging of other specified body structures] Onset: 4 Chronic Other upper respiratory disease (5 sources) Seasonal allergic rhinitis; Translations: [Other seasonal allergic rhinitis] Chronic Other upper respiratory disease (5 sources) Allergic rhinitis; Translations: [Allergic rhinitis, unspecified] Chronic Peripheral and visceral atherosclerosis (2 sources) Atherosclerosis of aorta 01-23-2024 Chronic Prolapse of female genital organs (2 sources) Cystocele; Translations: [Cystocele, unspecified] 12-09-2023 Chronic Pulmonary heart disease (4 sources) Pulmonary hypertension; Translations: [Pulmonary hypertension, unspecified] Onset: 3 10-07-2023 Chronic Residual codes; unclassified (8 sources) Sleep apnea; Translations: [Sleep apnea, unspecified] Onset: 3 10-07-2023 Chronic Residual codes; unclassified (6 sources) Obstructive sleep apnea syndrome; Translations: [Obstructive sleep apnea (adult) (pediatric)] Onset: 4 01-06-2024 Chronic Residual codes; unclassified (2 sources) Obstructive sleep apnea (adult) (pediatric); Translations: [Obstructive sleep apnea (adult) (pediatric)] Onset: 4 Chronic Residual codes; unclassified (10 sources) History of repair of hip joint; Translations: [Other specified postprocedural states] 09-06-2020 Episodic Residual codes; unclassified (12 sources) Patient encounter status; Translations: [Encounter for prophylactic measures, unspecified] 09-06-2020 Episodic Residual codes; unclassified (8 sources) Activity of daily living (ADL) alteration; Translations: [Other specified health status] 12-26-2022 Episodic Residual codes; unclassified (2 sources) Other specified health status; Translations: [Other specified conditions influencing health status] 12-26-2022 Episodic Residual codes; unclassified (6 sources) Edema of foot; Translations: [Localized edema] 06-25-2023 Episodic Respiratory failure; insufficiency; arrest (adult) (15 sources) Chronic hypoxemic respiratory failure; Translations: [Chronic respiratory failure with hypoxia] Onset: 3 01-06-2024 Chronic Screening and history of mental health and substance abuse codes (1 source) Personal history of nicotine dependence; Translations: [Personal history of nicotine dependence] Onset: 4 Episodic Spondylosis; intervertebral disc disorders; other back problems (17 sources) Degeneration of lumbar intervertebral disc; Translations: [Other intervertebral disc degeneration, lumbar region] Onset: 3 03-28-2023 Chronic Spondylosis; intervertebral disc disorders; other back problems (13 sources) Chronic low back pain; Translations: [Lumbago with sciatica, left side] Onset: 3 06-14-2023 Episodic Substance-related disorders (14 sources) Nicotine dependence; Translations: [Nicotine dependence, unspecified, uncomplicated] Onset: 3 Resolved: 3 10-07-2023 Chronic Superficial injury; contusion (8 sources) Contusion of hip; Translations: [Contusion of unspecified hip, initial encounter] 07-10-2023 Episodic Transient cerebral ischemia (19 sources) Transient cerebral ischemia; Translations: [Transient cerebral ischemic attack, unspecified] Onset: 0 04-28-2020 Chronic Unclassified (2 sources) 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; Translations: [Anticoagulated] Onset: 9 08-02-2019 Unclassified (2 sources) Chronic ulcer of left foot 01-23-2024 Unclassified (1 source) Other specified cough; Translations: [Other specified cough] Onset: 4 Unclassified (1 source) ARTURO Onset: 3 Unclassified (1 source) Longstanding persistent atrial fibrillation; Translations: [Longstanding persistent atrial fibrillation] Onset: 3 Urinary tract infections (1 source) Urinary tract infections; Translations: [Urinary tract infection, site not specified] Onset: 3 Viral infection (4 sources) Verruca plantaris; Translations: [Plantar wart] Onset: 3 06-14-2023 Episodic Past or Other Problems Problem Classification Problem Date Documented Da te Episodic/Chronic Abdominal hernia (15 sources) Umbilical hernia; Translations: [Umbilical hernia without obstruction or gangrene] Onset: 06-14-2023 07-11-2023 Episodic Acute and unspecified renal failure (20 sources) Injury of kidney; Translations: [Acute kidney failure, unspecified] Onset: 10-05-2023 09-12-2020 Episodic E Codes: Fall (20 sources) Fall; Translations: [Unspecified fall, initial encounter] Onset: 06-14-2023 08-31-2020 Episodic Intestinal obstruction without hernia (2 sources) Small bowel obstruction; Translations: [Small bowel obstruction] Onset: 08-01-2019 08-01-2019 Episodic Malaise and fatigue (17 sources) Physical deconditioning; Translations: [Other malaise] Onset: 02-14-2024 12-27-2022 Episodic Mood disorders (6 sources) Mood disorders Onset: 04-01-2023 Resolved: 10-06-2023 10-06-2023 Other gastrointestinal disorders (2 sources) Constipation; Translations: [Constipation, unspecified] Onset: 06-14-2023 06-14-2023 Episodic Other injuries and conditions due to external causes (2 sources) At risk for falls ; Translations: [History of falling] Onset: 06-14-2023 06-14-2023 Episodic Other lower respiratory disease (2 sources) Shortness of breath; Translations: [Shortness of breath] Onset: 01-06-2024 Episodic Other lower respiratory disease (1 source) Acute respiratory distress; Translations: [Acute respiratory distress] Onset: 10-05-2023 Episodic Pneumonia (except that caused by tuberculosis or sexually transmitted disease) (7 sources) Pneumonia; Translations: [Pneumonia, unspecified organism] Onset: 02-14-2024 02-14-2024 Episodic Residual codes; unclassified (2 sources) Insomnia; Translations: [Insomnia, unspecified] Onset: 06-14-2023 06-14-2023 Episodic Residual codes; unclassified (2 sources) Edema of lower extremity; Translations: [Localized edema] Onset: 06-14-2023 06-14-2023 Episodic Residual codes; unclassified (2 sources) Tobacco user; Translations: [Tobacco use] Onset: 06-14-2023 06-14-2023 Episodic Residual codes; unclassified (3 sources) Localized edema; Translations: [Localized edema] Onset: 06-17-2023 06-19-2023 Episodic Septicemia (except in labor) (7 sources) Sepsis; Translations: [Sepsis, unspecified organism] Onset: 08-19-2023 10-07-2023 Episodic Unclassified (1 source) Onset: 02-10-2024 02-10-2024 Unclassified (1 source) Other specified cough; Translations: [Other specified cough] Onset: 01-06-2024 Urinary tract infections (20 sources) Urinary tract infectious disease; Translations: [Urinary tract infection, site not specified] Onset: 07-10-2023 04-28-2020 Episodic Results Test Name Value Interpretation Reference Range Facility XR CHEST 2 VIEWSon 4 XR CHEST 2 VIEWS FINDINGS: Comparison April 26, 2023, February 19, 2024. New small left side pleural effusion. Diffuse interstitial prominence, scarring associate with the cardiac apex. No parenchymal consolidation. Minimal left lower lobe volume loss. Mild biventricular enlargement. Calcified aortic knob. IMPRESSION: Small left- sided effusion, underlying COPD/interstitial lung disease changes. TRANSCRIBED BY: ELECTRONICALLY SIGNED BY: Rodriguez Winslow MD Normal Not Available CT CHEST WO CONTon 4 CT CHEST WO CONT CT CHEST WO CONT STUDY: CT chest without contrast CLINICAL HISTORY: Shortness of breath; COPD exacerbation (CMS-HCC); Pneumonia of right lower lobe due to infectious organism COMPARISON: 02/19/2024 TECHNIQUE: CT chest was performed utilizing 5 mm axial reconstructions without contrast. Coronal and sagittal reformatted images were obtained and reviewed. Automated exposure control was utilized. Computer aided detection for pulmonary nodules was performed utilizing [employer] software. FINDINGS: No pleural or pericardial effusion. No enlarged axillary or mediastinal lymph nodes. Atherosclerotic thoracic aorta. Heavy coronary artery calcifications. Dependent changes and atelectasis in both lungs. No pneumothorax. Central airways patent. Atherosclerotic changes of the thoracic aorta. There is respiratory motion compromising assessment of the pulmonary parenchyma. Chronic appearing compression deformity of the superior endplate of T10. IMPRESSION: 1. Stable examination without evidence of acute cardiopulmonary process. There is no evidence of interstitial inflammatory or fibrotic process. All CT scans at this facility use dose modulation, iterative reconstruction, and/or weight based dosing when appropriate to reduce radiation dose to as low as reasonably achievable. Finalized by Ryan Blake MD on 05/01/2024 9:36 AM Normal [facility] BLOOD UREA NITROGENon 2023 Urea nitrogen [Mass/Vol] 20 mg/dL Normal 5-27 [facility] Comment on above: Performed By: #### C SANTOSH DENG #### [facility] ([id number]) [address] [place] [address] 51026 CBC AND AUTO DIFFon 04-13-20 ABSOLUTE BASOPHIL 0.0 X10E9/L Normal 0.0-0.2 [facility] Comment on above: Performed By: #### C SOWMYA BMP #### [facility] ([id number]) [address] [place] [address] 01506 ABSOLUTE NEUTROPHIL 7.1 X10E9/L High 1.5-6.6 [facility] Comment on above: Performed By: #### C SOWMYA, BMP #### [facility] ([id number]) [address] [place] [address] 30564 Basophils/100 WBC (Bld) 0.4 % Normal [facility] Comment on above: Performed By: #### C BCA, BMP #### [facility] ([id number]) [address] [place] [address] 44002 Eosinophils (Bld) [#/Vol] 0.3 10*3/uL Normal 0.0-0.4 [facility] Comment on above: Performed By: #### C SOWMYA, BMP #### [facility] ([id number]) [address] [place] [address] 77351 Eosinophils/100 WBC (Bld) 2.8 % Normal [facility] Comment on above: Performed By: #### C SOWMYA, BMP #### [facility] ([id number]) [address] [place] [address] 52130 Erythrocyte distribution width (RBC) [Ratio] 19.0 % High 11.5-15.0 [facility] Comment on above: Performed By: #### C SOWMYA, BMP #### [facility] ([id number]) [address] [place] [address] 66315 Hematocrit (Bld) [Volume fraction] 27.8 % Low 35-47 [facility] Comment on above: Performed By: #### C SOWMYA, BMP #### [facility] ([id number]) [address] [place] [address] 78511 Hemoglobin (Bld) [Mass/Vol] 9.0 g/dL Low 11.7-15.5 [facility] Comment on above: Performed By: #### C BCA, BMP #### [facility] ([id number]) [address] [place] [address] 06636 Lymphocytes (Bld) [#/Vol] 3.2 10*3/uL Normal 1.0-3.5 [facility] Comment on above: Performed By: #### C SOWMYA, BMP #### [facility] ([id number]) [address] [place] [address] 99457 Lymphocytes/100 WBC (Bld) 27.2 % Normal [facility] Comment on above: Performed By: #### C SOWMYA, BMP #### [facility] ([id number]) [address] [place] [address] 10067 MCH (RBC) [Entitic mass] 24.5 pg Low 27-34 [facility] Comment on above: Performed By: #### C SOWMYA, BMP #### [facility] ([id number]) [address] [place] [address] 47803 MCHC (RBC) [Mass/Vol] 32.3 g/dL Normal 32-36 [facility] Comment on above: Performed By: #### C SOWMYA, BMP #### [facility] ([id number]) [address] [place] [address] 12529 MCV (RBC) [Entitic vol] 76 fL Low 80-100 [facility] Comment on above: Performed By: #### C SOWMYA, BMP #### [facility] ([id number]) [address] [place] [address] 30777 Monocytes (Bld) [#/Vol] 1.0 10*3/uL High 0-0.9 [facility] Comment on above: Performed By: #### C SOWMYA, BMP #### [facility] ([id number]) [address] [place] [address] 00965 Monocytes/100 WBC (Bld) 8.4 % Normal [facility] Comment on above: Performed By: #### C SOWMYA, BMP #### [facility] ([id number]) [address] [place] [address] 84394 Neutrophils/100 WBC (Bld) 61.2 % Normal [facility] Comment on above: Performed By: #### C SOWMYA, BMP #### [facility] ([id number]) [address] [place] [address] 82704 Platelet mean volume (Bld) [Entitic vol] 6.8 fL Low 7-12 [facility] Comment on above: Performed By: #### C SOWMYA, BMP #### [facility] ([id number]) [address] [place] [address] 70287 Platelets (Bld) [#/Vol] 353 10*3/uL Normal 150-450 [facility] Comment on above: Performed By: #### C SOWMYA, BMP #### [facility] ([id number]) [address] [place] [address] 49105 RBC COUNT 3.67 X10E12/L Low 3.80-5.20 [facility] Comment on above: Performed By: #### C SOWMYA, BMP #### [facility] ([id number]) [address] [place] [address] 02051 WBC (Bld) [#/Vol] 11.7 10*3/uL High 4.0-11.0 [facility] Comment on above: Performed By: #### C SOWMYA, BMP #### [facility] ([id number]) [address] [place] [address] 72694 CREATININEon 04-13-2024 Creatinine [Mass/Vol] 1.16 mg/dL High 0.40-1.00 [facility] Comment on above: Result Comment: METH OD TRACEABLE TO IDMS STANDARD Performed By: #### C SOWMYA, BMP #### [facility] ([id number]) [address] [place] [address] 13917 GFR/1.73 sq M.predicted among non-blacks MDRD (S/P/Bld) [Vol rate/Area] 48 mL/min/{1.73_m2} Low >59 [facility] Comment on above: Result Comment: Reported eGFR is based on the CKD-EPI 2020 equation that does not use a race coefficient. Performed By: #### C SOWMYA, BMP #### [facility] ([id number]) [address] [place] [address] 60972 ELECTROLYTESon 04-13-2024 Anion gap [Moles/Vol] 4 mmol/L Low 5-15 [facility] Comment on above: Performed By: #### C BCA, BMP #### [facility] ([id number]) [address] [place] [address] 05157 Chloride [Moles/Vol] 106 mmol/L Normal 98-109 [facility] Comment on above: Performed By: #### C BCA, BMP #### [facility] ([id number]) [address] [place] [address] 16685 CO2 [Moles/Vol] 25 mmol/L Normal 22-32 [facility] Comment on above: Performed By: #### C SOWMYA, BMP #### [facility] ([id number]) [address] [place] [address] 43386 Potassium [Moles/Vol] 4.0 mmol/L Normal 3.5-5.0 [facility] Comment on above: Performed By: #### C BCA, BMP #### [facility] ([id number]) [address] [place] [address] 48960 Sodium [Moles/Vol] 135 mmol/L Normal 134-146 [facility] Comment on above: Performed By: #### C BCA, BMP #### [facility] ([id number]) [address] [place] [address] 59584 BLOOD UREA NITROGENon 2023 Urea nitrogen [Mass/Vol] 19 mg/dL Normal 5-27 [facility] Comment on above: Performed By: #### C BCA, BMP #### [facility] ([id number]) [address] [place] [address] 63005 CBC AND AUTO DIFFon 04-08-20 24 ABSOLUTE BASOPHIL 0.1 X10E9/L Normal 0.0-0.2 [facility] Comment on above: Performed By: #### C BCA, BMP #### [facility] ([id number]) [address] [place] [address] 51398 ABSOLUTE NEUTROPHIL 4.2 X10E9/L Normal 1.5-6.6 [facility] Comment on above: Performed By: #### C SOWMYA, BMP #### [facility] ([id number]) [address] [place] [address] 65383 Basophils/100 WBC (Bld) 1.1 % Normal [facility] Comment on above: Performed By: #### C SOWMYA, BMP #### [facility] ([id number]) [address] [place] [address] 21954 Eosinophils (Bld) [#/Vol] 0.4 10*3/uL Normal 0.0-0.4 [facility] Comment on above: Performed By: #### C SOWMYA, BMP #### [facility] ([id number]) [address] [place] [address] 99701 Eosinophils/100 WBC (Bld) 4.0 % Normal [facility] Comment on above: Performed By: #### C SOWMYA, BMP #### [facility] ([id number]) [address] [place] [address] 46074 Erythrocyte distribution width (RBC) [Ratio] 18.5 % High 11.5-15.0 [facility] Comment on above: Performed By: #### C BCA, BMP #### [facility] ([id number]) [address] [place] [address] 90920 Hematocrit (Bld) [Volume fraction] 28.4 % Low 35-47 [facility] Comment on above: Performed By: #### C BCA, BMP #### [facility] ([id number]) [address] [place] [address] 79805 Hemoglobin (Bld) [Mass/Vol] 9.4 g/dL Low 11.7-15.5 [facility] Comment on above: Performed By: #### C SOWMYA, BMP #### [facility] ([id number]) [address] [place] [address] 66710 Lymphocytes (Bld) [#/Vol] 3.3 10*3/uL Normal 1.0-3.5 [facility] Comment on above: Performed By: #### C SOWMYA, BMP #### [facility] ([id number]) [address] [place] [address] 69140 Lymphocytes/100 WBC (Bld) 37.1 % Normal [facility] Comment on above: Performed By: #### C SOWMYA, BMP #### [facility] ([id number]) [address] [place] [address] 03002 MCH (RBC) [Entitic mass] 24.9 pg Low 27-34 [facility] Comment on above: Performed By: #### C SOWMYA, BMP #### [facility] ([id number]) [address] [place] [address] 79632 MCHC (RBC) [Mass/Vol] 33.0 g/dL Normal 32-36 [facility] Comment on above: Performed By: #### C SOWMYA, BMP #### [facility] ([id number]) [address] [place] [address] 96364 MCV (RBC) [Entitic vol] 76 fL Low 80-100 [facility] Comment on above: Performed By: #### C SOWMYA, BMP #### [facility] ([id number]) [address] [place] [address] 04214 Monocytes (Bld) [#/Vol] 1.0 10*3/uL High 0-0.9 [facility] Comment on above: Performed By: #### C SOWMYA, BMP #### [facility] ([id number]) [address] [place] [address] 15748 Monocytes/100 WBC (Bld) 10.9 % Normal [facility] Comment on above: Performed By: #### C SOWMYA, BMP #### [facility] ([id number]) [address] [place] [address] 10056 Neutrophils/100 WBC (Bld) 46.9 % Normal [facility] Comment on above: Performed By: #### C SOWMYA, BMP #### [facility] ([id number]) [address] [place] [address] 13512 Platelet mean volume (Bld) [Entitic vol] 6.7 fL Low 7-12 [facility] Comment on above: Performed By: #### C SOWMYA, BMP #### [facility] ([id number]) [address] [place] [address] 83026 Platelets (Bld) [#/Vol] 367 10*3/uL Normal 150-450 [facility] Comment on above: Performed By: #### C SOWMYA, BMP #### [facility] ([id number]) [address] [place] [address] 86338 RBC COUNT 3.76 X10E12/L Low 3.80-5.20 [facility] Comment on above: Performed By: #### Timmy DENG, BMP #### [facility] ([id number]) [address] [place] [address] 07416 WBC (Bld) [#/Vol] 9.0 10*3/uL Normal 4.0-11.0 [facility] Comment on above: Performed By: #### Timmy DENG, BMP #### [facility] ([id number]) [address] [place] [address] 63698 CREATININEon 04-08-2024 Creatinine [Mass/Vol] 1.09 mg/dL High 0.40-1.00 [facility] Comment on above: Result Comment: METH OD TRACEABLE TO IDMS STANDARD Performed By: #### C SOWMYA, BMP #### [facility] ([id number]) [address] [place] [address] 16351 GFR/1.73 sq M.predicted among non-blacks MDRD (S/P/Bld) [Vol rate/Area] 52 mL/min/{1.73_m2} Low >59 [facility] Comment on above: Result Comment: Reported eGFR is based on the CKD-EPI 2020 equation that does not use a race coefficient. Performed By: #### C SOWMYA, BMP #### [facility] ([id number]) [address] [place] [address] 32505 ELECTROLYTESon 04-08-2024 Anion gap [Moles/Vol] 8 mmol/L Normal 5-15 [facility] Comment on above: Performed By: #### C SOWMYA, BMP #### [facility] ([id number]) [address] [place] [address] 84157 Chloride [Moles/Vol] 107 mmol/L Normal 98-109 [facility] Comment on above: Performed By: #### C SOWMYA, BMP #### [facility] ([id number]) [address] [place] [address] 72405 CO2 [Moles/Vol] 24 mmol/L Normal 22-32 [facility] Comment on above: Performed By: #### C BCA, BMP #### [facility] ([id number]) [address] [place] [address] 10297 Potassium [Moles/Vol] 3.8 mmol/L Normal 3.5-5.0 [facility] Comment on above: Performed By: #### C BCA, BMP #### [facility] ([id number]) [address] [place] [address] 54982 Sodium [Moles/Vol] 139 mmol/L Normal 134-146 [facility] Comment on above: Performed By: #### C SOWMYA, BMP #### [facility] ([id number]) [address] [place] [address] 67208 BLOOD UREA NITROGENon 2023 Urea nitrogen [Mass/Vol] 20 mg/dL Normal 5-27 [facility] Comment on above: Performed By: #### C SOWMYA, BMP #### [facility] ([id number]) [address] [place] [address] 81544 CBC AND AUTO DIFFon 04-02-20 24 ABSOLUTE BASOPHIL 0.1 X10E9/L Normal 0.0-0.2 [facility] Comment on above: Performed By: #### C SOWMYA, BMP #### [facility] ([id number]) [address] [place] [address] 87962 ABSOLUTE NEUTROPHIL 4.8 X10E9/L Normal 1.5-6.6 [facility] Comment on above: Performed By: #### C SOWMYA, BMP #### [facility] ([id number]) [address] [place] [address] 23651 Basophils/100 WBC (Bld) 0.7 % Normal [facility] Comment on above: Performed By: #### C SOWMYA, BMP #### [facility] ([id number]) [address] [place] [address] 99243 Eosinophils (Bld) [#/Vol] 0.2 10*3/uL Normal 0.0-0.4 [facility] Comment on above: Performed By: #### C SOWMYA, BMP #### [facility] ([id number]) [address] [place] [address] 38836 Eosinophils/100 WBC (Bld) 2.5 % Normal [facility] Comment on above: Performed By: #### C BCA, BMP #### [facility] ([id number]) [address] [place] [address] 14062 Erythrocyte distribution width (RBC) [Ratio] 18.6 % High 11.5-15.0 [facility] Comment on above: Performed By: #### C SOWMYA, BMP #### [facility] ([id number]) [address] [place] [address] 46985 Hematocrit (Bld) [Volume fraction] 28.2 % Low 35-47 [facility] Comment on above: Performed By: #### C SOWMYA, BMP #### [facility] ([id number]) [address] [place] [address] 32922 Hemoglobin (Bld) [Mass/Vol] 9.1 g/dL Low 11.7-15.5 [facility] Comment on above: Performed By: #### Timmy DENG, BMP #### [facility] ([id number]) [address] [place] [address] 08565 Lymphocytes (Bld) [#/Vol] 3.2 10*3/uL Normal 1.0-3.5 [facility] Comment on above: Performed By: #### Timmy DENG, BMP #### [facility] ([id number]) [address] [place] [address] 93298 Lymphocytes/100 WBC (Bld) 34.4 % Normal [facility] Comment on above: Performed By: #### Timmy DENG, BMP #### [facility] ([id number]) [address] [place] [address] 09701 MCH (RBC) [Entitic mass] 24.5 pg Low 27-34 [facility] Comment on above: Performed By: #### Timmy DENG, BMP #### [facility] ([id number]) [address] [place] [address] 39138 MCHC (RBC) [Mass/Vol] 32.4 g/dL Normal 32-36 [facility] Comment on above: Performed By: #### Timmy DENG, BMP #### [facility] ([id number]) [address] [place] [address] 31089 MCV (RBC) [Entitic vol] 76 fL Low 80-100 [facility] Comment on above: Performed By: #### C SOWMYA, BMP #### [facility] ([id number]) [address] [place] [address] 52727 Monocytes (Bld) [#/Vol] 1.0 10*3/uL High 0-0.9 [facility] Comment on above: Performed By: #### C SOWMYA, BMP #### [facility] ([id number]) [address] [place] [address] 79968 Monocytes/100 WBC (Bld) 11.1 % Normal [facility] Comment on above: Performed By: #### C SOWMYA, BMP #### [facility] ([id number]) [address] [place] [address] 65030 Neutrophils/100 WBC (Bld) 51.3 % Normal [facility] Comment on above: Performed By: #### C SOWMYA, BMP #### [facility] ([id number]) [address] [place] [address] 98149 Platelet mean volume (Bld) [Entitic vol] 6.9 fL Low 7-12 [facility] Comment on above: Performed By: #### C SOWMYA, BMP #### [facility] ([id number]) [address] [place] [address] 60198 Platelets (Bld) [#/Vol] 319 10*3/uL Normal 150-450 [facility] Comment on above: Performed By: #### C SOWMYA, BMP #### [facility] ([id number]) [address] [place] [address] 14599 RBC COUNT 3.72 X10E12/L Low 3.80-5.20 [facility] Comment on above: Performed By: #### C SOWMYA, BMP #### [facility] ([id number]) [address] [place] [address] 55930 WBC (Bld) [#/Vol] 9.4 10*3/uL Normal 4.0-11.0 [facility] Comment on above: Performed By: #### C SOWMYA, BMP #### [facility] ([id number]) [address] [place] [address] 70908 CREATININEon 04-02-2024 Creatinine [Mass/Vol] 1.13 mg/dL High 0.40-1.00 [facility] Comment on above: Result Comment: METH OD TRACEABLE TO IDMS STANDARD Performed By: #### C SOWMYA, BMP #### [facility] ([id number]) [address] [place] [address] 93333 GFR/1.73 sq M.predicted among non-blacks MDRD (S/P/Bld) [Vol rate/Area] 50 mL/min/{1.73_m2} Low >59 [facility] Comment on above: Result Comment: Reported eGFR is based on the CKD-EPI 2020 equation that does not use a race coefficient. Performed By: #### C SOWMYA, BMP #### [facility] ([id number]) [address] [place] [address] 70182 ELECTROLYTESon 04-02-2024 Anion gap [Moles/Vol] 7 mmol/L Normal 5-15 [facility] Comment on above: Performed By: #### C SOWMYA, BMP #### [facility] ([id number]) [address] [place] [address] 61836 Chloride [Moles/Vol] 107 mmol/L Normal 98-109 [facility] Comment on above: Performed By: #### C BCA, BMP #### [facility] ([id number]) [address] [place] [address] 49604 CO2 [Moles/Vol] 25 mmol/L Normal 22-32 [facility] Comment on above: Performed By: #### C BCA, BMP #### [facility] ([id number]) [address] [place] [address] 83269 Potassium [Moles/Vol] 4.1 mmol/L Normal 3.5-5.0 [facility] Comment on above: Performed By: #### C BCA, BMP #### [facility] ([id number]) [address] [place] [address] 03835 Sodium [Moles/Vol] 139 mmol/L Normal 134-146 [facility] Comment on above: Performed By: #### C BCA, BMP #### [facility] ([id number]) [address] [place] [address] 98763 BASIC METABOLIC PANLon 03-30 Anion gap [Moles/Vol] 8 mmol/L Normal 5-15 [facility] Comment on above: Performed By: #### C BCA, BMP #### [facility] ([id number]) [address] [place] [address] 34374 Calcium [Mass/Vol] 9.1 mg/dL Normal 8.5-10.5 [facility] Comment on above: Performed By: #### C BCA, BMP #### [facility] ([id number]) [address] [place] [address] 19805 Chloride [Moles/Vol] 104 mmol/L Normal 98-109 [facility] Comment on above: Performed By: #### C BCA, BMP #### [facility] ([id number]) [address] [place] [address] 91206 CO2 [Moles/Vol] 26 mmol/L Normal 22-32 [facility] Comment on above: Performed By: #### C BCA, BMP #### [facility] ([id number]) [address] [place] [address] 10708 Creatinine [Mass/Vol] 1.14 mg/dL High 0.40-1.00 [facility] Comment on above: Result Comment: METH OD TRACEABLE TO IDMS STANDARD Performed By: #### C SOWMYA, BMP #### [facility] ([id number]) [address] [place] [address] 45098 GFR/1.73 sq M.predicted among non-blacks MDRD (S/P/Bld) [Vol rate/Area] 49 mL/min/{1.73_m2} Low >59 [facility] Comment on above: Result Comment: Reported eGFR is based on the CKD-EPI 2020 equation that does not use a race coefficient. Performed By: #### C SOWMYA, BMP #### [facility] ([id number]) [address] [place] [address] 48681 Glucose [Mass/Vol] 101 mg/dL High 65-99 [facility] Comment on above: Performed By: #### C SOWMYA, BMP #### [facility] ([id number]) [address] [place] [address] 05188 Potassium [Moles/Vol] 4.2 mmol/L Normal 3.5-5.0 [facility] Comment on above: Performed By: #### C SOWMYA, BMP #### [facility] ([id number]) [address] [place] [address] 26934 Sodium [Moles/Vol] 138 mmol/L Normal 134-146 [facility] Comment on above: Performed By: #### C SOWMYA, BMP #### [facility] ([id number]) [address] [place] [address] 42508 Urea nitrogen [Mass/Vol] 21 mg/dL Normal 5-27 [facility] Comment on above: Performed By: #### C SOWMYA, BMP #### [facility] ([id number]) [address] [place] [address] 31938 CBC AND AUTO DIFFon 05-22-20 24 ABSOLUTE BASOPHIL 0.1 X10E9/L Normal 0.0-0.2 [facility] Comment on above: Performed By: #### C SOWMYA, BMP #### [facility] ([id number]) [address] [place] [address] 27197 ABSOLUTE NEUTROPHIL 4.5 X10E9/L Normal 1.5-6.6 [facility] Comment on above: Performed By: #### C SOWMYA, BMP #### [facility] ([id number]) [address] [place] [address] 86292 Basophils/100 WBC (Bld) 0.7 % Normal [facility] Comment on above: Performed By: #### C SOWMYA, BMP #### [facility] ([id number]) [address] [place] [address] 46861 Eosinophils (Bld) [#/Vol] 0.4 10*3/uL Normal 0.0-0.4 [facility] Comment on above: Performed By: #### C SOWMYA, BMP #### [facility] ([id number]) [address] [place] [address] 99218 Eosinophils/100 WBC (Bld) 4.1 % Normal [facility] Comment on above: Performed By: #### C SOWMYA, BMP #### [facility] ([id number]) [address] [place] [address] 44436 Erythrocyte distribution width (RBC) [Ratio] 18.8 % High 11.5-15.0 [facility] Comment on above: Performed By: #### C SOWMYA, BMP #### [facility] ([id number]) [address] [place] [address] 50989 Hematocrit (Bld) [Volume fraction] 28.0 % Low 35-47 [facility] Comment on above: Performed By: #### C SOWMYA, BMP #### [facility] ([id number]) [address] [place] [address] 10416 Hemoglobin (Bld) [Mass/Vol] 9.1 g/dL Low 11.7-15.5 [facility] Comment on above: Performed By: #### C SOWMYA, BMP #### [facility] ([id number]) [address] [place] [address] 72858 Lymphocytes (Bld) [#/Vol] 2.9 10*3/uL Normal 1.0-3.5 [facility] Comment on above: Performed By: #### C SOWMYA, BMP #### [facility] ([id number]) [address] [place] [address] 49183 Lymphocytes/100 WBC (Bld) 33.2 % Normal [facility] Comment on above: Performed By: #### C SOWMYA, BMP #### [facility] ([id number]) [address] [place] [address] 66443 MCH (RBC) [Entitic mass] 24.4 pg Low 27-34 [facility] Comment on above: Performed By: #### C SOWMYA, BMP #### [facility] ([id number]) [address] [place] [address] 61656 MCHC (RBC) [Mass/Vol] 32.3 g/dL Normal 32-36 [facility] Comment on above: Performed By: #### C SOWMYA, BMP #### [facility] ([id number]) [address] [place] [address] 58634 MCV (RBC) [Entitic vol] 76 fL Low 80-100 [facility] Comment on above: Performed By: #### C BCA, BMP #### [facility] ([id number]) [address] [place] [address] 71980 Monocytes (Bld) [#/Vol] 0.8 10*3/uL Normal 0-0.9 [facility] Comment on above: Performed By: #### C BCA, BMP #### [facility] ([id number]) [address] [place] [address] 10242 Monocytes/100 WBC (Bld) 9.4 % Normal [facility] Comment on above: Performed By: #### C SOWMYA, BMP #### [facility] ([id number]) [address] [place] [address] 05562 Neutrophils/100 WBC (Bld) 52.6 % Normal [facility] Comment on above: Performed By: #### C SOWMYA, BMP #### [facility] ([id number]) [address] [place] [address] 41466 Platelet mean volume (Bld) [Entitic vol] 6.8 fL Low 7-12 [facility] Comment on above: Performed By: #### C SOWMYA, BMP #### [facility] ([id number]) [address] [place] [address] 05790 Platelets (Bld) [#/Vol] 405 10*3/uL Normal 150-450 [facility] Comment on above: Performed By: #### C SOWMYA, BMP #### [facility] ([id number]) [address] [place] [address] 77460 RBC COUNT 3.71 X10E12/L Low 3.80-5.20 [facility] Comment on above: Performed By: #### C SOWMYA, BMP #### [facility] ([id number]) [address] [place] [address] 91658 WBC (Bld) [#/Vol] 8.6 10*3/uL Normal 4.0-11.0 [facility] Comment on above: Performed By: #### C SOWMYA, BMP #### [facility] ([id number]) [address] [place] [address] 21231 BLOOD UREA NITROGENon 2023 Urea nitrogen [Mass/Vol] 14 mg/dL Normal 5-27 [facility] Comment on above: Performed By: #### C SOWMYA, BMP #### [facility] ([id number]) [address] [place] [address] 03264 CBC AND AUTO DIFFon 03-11-20 24 ABSOLUTE BASOPHIL 0.1 X10E9/L Normal 0.0-0.2 [facility] Comment on above: Performed By: #### C SOWMYA, BMP #### [facility] ([id number]) [address] [place] [address] 43732 ABSOLUTE NEUTROPHIL 6.8 X10E9/L High 1.5-6.6 [facility] Comment on above: Performed By: #### C SOWMYA, BMP #### [facility] ([id number]) [address] [place] [address] 37203 Basophils/100 WBC (Bld) 0.6 % Normal [facility] Comment on above: Performed By: #### C SOWMYA, BMP #### [facility] ([id number]) [address] [place] [address] 41925 Eosinophils (Bld) [#/Vol] 0.4 10*3/uL Normal 0.0-0.4 [facility] Comment on above: Performed By: #### C SOWMYA, BMP #### [facility] ([id number]) [address] [place] [address] 78319 Eosinophils/100 WBC (Bld) 3.7 % Normal [facility] Comment on above: Performed By: #### C SOWMYA, BMP #### [facility] ([id number]) [address] [place] [address] 03018 Erythrocyte distribution width (RBC) [Ratio] 18.8 % High 11.5-15.0 [facility] Comment on above: Performed By: #### C SOWMYA, BMP #### [facility] ([id number]) [address] [place] [address] Hematocrit (Bld) [Volume fraction] 27.4 % Low 35-47 [facility] Comment on above: Performed By: #### C SOWMYA, BMP #### [facility] ([id number]) [address] [place] [address] 85142 Hemoglobin (Bld) [Mass/Vol] 8.8 g/dL Low 11.7-15.5 [facility] Comment on above: Performed By: #### C SOWMYA, BMP #### [facility] ([id number]) [address] [place] [address] 68534 Lymphocytes (Bld) [#/Vol] 3.3 10*3/uL Normal 1.0-3.5 [facility] Comment on above: Performed By: #### C SOWMYA, BMP #### [facility] ([id number]) [address] [place] [address] 78650 Lymphocytes/100 WBC (Bld) 27.7 % Normal [facility] Comment on above: Performed By: #### C SOWMYA, BMP #### [facility] ([id number]) [address] [place] [address] 54638 MCH (RBC) [Entitic mass] 24.7 pg Low 27-34 [facility] Comment on above: Performed By: #### C SOWMYA, BMP #### [facility] ([id number]) [address] [place] [address] 76994 MCHC (RBC) [Mass/Vol] 32.3 g/dL Normal 32-36 [facility] Comment on above: Performed By: #### C SOWMYA, BMP #### [facility] ([id number]) [address] [place] [address] 89872 MCV (RBC) [Entitic vol] 77 fL Low 80-100 [facility] Comment on above: Performed By: #### C BCA, BMP #### [facility] ([id number]) [address] [place] [address] 70174 Monocytes (Bld) [#/Vol] 1.2 10*3/uL High 0-0.9 [facility] Comment on above: Performed By: #### C SOWMYA, BMP #### [facility] ([id number]) [address] [place] [address] 13551 Monocytes/100 WBC (Bld) 10.4 % Normal [facility] Comment on above: Performed By: #### C SOWMYA, BMP #### [facility] ([id number]) [address] [place] [address] 55727 Neutrophils/100 WBC (Bld) 57.6 % Normal [facility] Comment on above: Performed By: #### C SOWMYA, BMP #### [facility] ([id number]) [address] [place] [address] 54778 Platelet mean volume (Bld) [Entitic vol] 7.3 fL Normal 7-12 [facility] Comment on above: Performed By: #### C SOWMYA, BMP #### [facility] ([id number]) [address] [place] [address] 52871 Platelets (Bld) [#/Vol] 255 10*3/uL Normal 150-450 [facility] Comment on above: Performed By: #### C SOWMYA, BMP #### [facility] ([id number]) [address] [place] [address] 32829 RBC COUNT 3.58 X10E12/L Low 3.80-5.20 [facility] Comment on above: Performed By: #### C SOWMYA, BMP #### [facility] ([id number]) [address] [place] [address] 40394 WBC (Bld) [#/Vol] 11.8 10*3/uL High 4.0-11.0 [facility] Comment on above: Performed By: #### C BCA, BMP #### [facility] ([id number]) [address] [place] [address] 86387 CREATININEon 03-11-2024 Creatinine [Mass/Vol] 1.09 mg/dL High 0.40-1.00 [facility] Comment on above: Result Comment: METH OD TRACEABLE TO IDMS STANDARD Performed By: #### C BCA, BMP #### [facility] ([id number]) [address] [place] [address] 36495 GFR/1.73 sq M.predicted among non-blacks MDRD (S/P/Bld) [Vol rate/Area] 52 mL/min/{1.73_m2} Low >59 [facility] Comment on above: Result Comment: Reported eGFR is based on the CKD-EPI 2020 equation that does not use a race coefficient. Performed By: #### C BCA, BMP #### [facility] ([id number]) [address] [place] [address] 51151 ELECTROLYTESon 03-11-2024 Anion gap [Moles/Vol] 7 mmol/L Normal 5-15 [facility] Comment on above: Performed By: #### E LEC, 3094-0, RAIL GRINDER, CBCA #### [facility] ([id number]) [address] [place] [address] 24387 Chloride [Moles/Vol] 106 mmol/L Normal 98-109 [facility] Comment on above: Performed By: #### E LEC, 3094-0, RAIL GRINDER, CBCA #### [facility] ([id number]) [address] [place] [address] 69341 CO2 [Moles/Vol] 27 mmol/L Normal 22-32 [facility] Comment on above: Performed By: #### E LEC, 3094-0, RAIL GRINDER, CBCA #### [facility] ([id number]) [address] [place] [address] 51386 Potassium [Moles/Vol] 4.2 mmol/L Normal 3.5-5.0 [facility] Comment on above: Performed By: #### E LEC, 3094-0, RAIL GRINDER, CBCA #### [facility] ([id number]) [address] [place] [address] 86651 Sodium [Moles/Vol] 140 mmol/L Normal 134-146 [facility] Comment on above: Performed By: #### E LEC, 3094-0, RAIL GRINDER, CBCA #### [facility] ([id number]) [address] [place] [address] 86921 CBC AND AUTO DIFFon 03-05-20 24 ABSOLUTE BASOPHIL 0.1 X10E9/L Normal 0.0-0.2 [facility] Comment on above: Performed By: #### C BCA #### [facility] ([id number]) [address] [place] [address] 88211 #### 12159-2 #### [facility] ([id number]) [address], [address] [place] [address] ABSOLUTE NEUTROPHIL 6.2 X10E9/L Normal 1.5-6.6 [facility] Comment on above: Performed By: #### C BCA #### [facility] ([id number]) [address] [place] [address] 53947 #### 84970-0 #### [facility] ([id number]) [address], [address] [place] [address] Basophils/100 WBC (Bld) 0.6 % Normal [facility] Comment on above: Performed By: #### C BCA #### [facility] ([id number]) [address] [place] [address] 38297 #### 05731-1 #### [facility] ([id number]) [address], [address] [place] [address] Eosinophils (Bld) [#/Vol] 0.3 10*3/uL Normal 0.0-0.4 [facility] Comment on above: Performed By: #### C BCA #### [facility] ([id number]) [address] [place] [address] 61320 #### 50878-7 #### [facility] ([id number]) [address], [address] [place] [address] Eosinophils/100 WBC (Bld) 2.4 % Normal [facility] Comment on above: Performed By: #### C BCA #### [facility] ([id number]) [address] [place] [address] 16268 #### 39690-2 #### [facility] ([id number]) [address], [address] [place] [address] Erythrocyte distribution width (RBC) [Ratio] 18.9 % High 11.5-15.0 [facility] Comment on above: Performed By: #### C BCA #### [facility] ([id number]) [address] [place] [address] 47064 #### 52024-7 #### [facility] ([id number]) [address], [address] [place] [address] Hematocrit (Bld) [Volume fraction] 30.3 % Low 35-47 [facility] Comment on above: Performed By: #### C BCA #### [facility] ([id number]) [address] [place] [address] 25513 #### 72147-1 #### [facility] ([id number]) [address], [address] [place] [address] Hemoglobin (Bld) [Mass/Vol] 9.7 g/dL Low 11.7-15.5 [facility] Comment on above: Performed By: #### C BCA #### [facility] ([id number]) [address] [place] [address] 62425 #### 21719-6 #### [facility] ([id number]) [address], [address] [place] [address] Lymphocytes (Bld) [#/Vol] 3.8 10*3/uL High 1.0-3.5 [facility] Comment on above: Performed By: #### C BCA #### [facility] ([id number]) [address] [place] [address] 87317 #### 26296-5 #### [facility] ([id number]) [address], [address] [place] [address] Lymphocytes/100 WBC (Bld) 32.9 % Normal [facility] Comment on above: Performed By: #### C BCA #### [facility] ([id number]) [address] [place] [address] 76055 #### 34291-0 #### [facility] ([id number]) [address], [address] [place] [address] MCH (RBC) [Entitic mass] 24.6 pg Low 27-34 [facility] Comment on above: Performed By: #### C BCA #### [facility] ([id number]) [address] [place] [address] 78732 #### 91693-5 #### [facility] ([id number]) [address], [address] [place] [address] MCHC (RBC) [Mass/Vol] 32.1 g/dL Normal 32-36 [facility] Comment on above: Performed By: #### C BCA #### [facility] ([id number]) [address] [place] [address] 96589 #### 75215-3 #### [facility] ([id number]) [address], [address] [place] [address] MCV (RBC) [Entitic vol] 77 fL Low 80-100 [facility] Comment on above: Performed By: #### C BCA #### [facility] ([id number]) [address] [place] [address] 41427 #### 19126-2 #### [facility] ([id number]) [address], [address] [place] [address] Monocytes (Bld) [#/Vol] 1.3 10*3/uL High 0-0.9 [facility] Comment on above: Performed By: #### C BCA #### [facility] ([id number]) [address] [place] [address] 74859 #### 64513-4 #### [facility] ([id number]) [address], [address] [place] [address] Monocytes/100 WBC (Bld) 11.0 % Normal [facility] Comment on above: Performed By: #### C BCA #### [facility] ([id number]) [address] [place] [address] 60449 #### 46954-7 #### [facility] ([id number]) [address], [address] [place] [address] Neutrophils/100 WBC (Bld) 53.1 % Normal [facility] Comment on above: Performed By: #### C BCA #### [facility] ([id number]) [address] [place] [address] 30535 #### 80393-8 #### [facility] ([id number]) [address], [address] [place] [address] Platelet mean volume (Bld) [Entitic vol] 7.5 fL Normal 7-12 [facility] Comment on above: Performed By: #### C BCA #### [facility] ([id number]) [address] [place] [address] #### [id number] #### [facility] ([id number]) [address], [address] [place] [address] Platelets (Bld) [#/Vol] 320 10*3/uL Normal 150-450 [facility] Comment on above: Performed By: #### C BCA #### [facility] ([id number]) [address] [place] [address] #### [id number] #### [facility] ([id number]) [address], [address] [place] [address] RBC COUNT 3.96 X10E12/L Normal 3.80-5.20 [facility] Comment on above: Performed By: #### C BCA #### [facility] ([id number]) [address] [place] [address] #### [id number] #### [facility] ([id number]) [address], [address] [place] [address] WBC (Bld) [#/Vol] 11.7 10*3/uL High 4.0-11.0 [facility] Comment on above: Performed By: #### C BCA #### [facility] ([id number]) [address] [place] [address] #### [id number] #### [facility] ([id number]) [address], [address] [place] [address] ESR Photometric method (Bld) [Velocity]on 03-05-2024 ESR, ERYTHROCYTE SEDIMENTATION RATE 43 mm/h High 0-30 [facility] Comment on above: Performed By: #### C BCA #### [facility] ([id number]) [address] [place] [address] #### [id number] #### [facility] ([id number]) [address], [address] [place] [address] FL SWALLOW MOTILITY FUNCTION on 03-04-2024 FL SWALLOW MOTILITY FUNCTION FL SWALLOW MOTILITY FUNCTION History:Previous abnormal swallow study. Patient currently on thickened liquids, reevaluation requested. Fluoroscopy: 2.3 minutes/21 stored series Reference air kerma is 3.1 mGy Video swallowing study was performed in conjunction with speech pathology. The patient was imaged in upright lateral position while swallowing varying consistencies of barium coated agents. Findings: The act of swallowing was normal at fluoroscopy. No penetration or aspiration of thin liquids, soft solids or thickened liquids. Deglutition of solids was appropriate. No abnormal vallecular or piriform sinus stasis or additional abnormalities. Impression: Unremarkable video swallow study. Please refer to speech pathology dietary recommendations. Finalized by Azeem Dowell MD on 03/04/2024 10:58 AM Normal [facility] URINALYSISon 03-03-2024 Bilirubin Ql (U) Negative Normal NEG [facility] Comment on above: Performed By: #### U A #### [facility] ([id number]) [address] [place] [address] 15518 BLOOD/HGB Negative Normal NEG [facility] Comment on above: Performed By: #### U A #### [facility] ([id number]) [address] [place] [address] 22665 Color (U) YELLOW Normal YELLOW [facility] Comment on above: Performed By: #### U A #### [facility] ([id number]) [address] [place] [address] 07100 Glucose Ql (U) Negative Normal NEG [facility] Comment on above: Performed By: #### U A #### [facility] ([id number]) [address] [place] [address] 43610 Ketones Ql (U) Negative Normal NEG [facility] Comment on above: Performed By: #### U A #### [facility] ([id number]) [address] [place] [address] 49923 Leukocyte esterase Test strip Ql (U) Negative Normal NEG [facility] Comment on above: Performed By: #### U A #### [facility] ([id number]) [address] [place] [address] 56974 Nitrite Ql (U) Negative Normal NEG [facility] Comment on above: Performed By: #### U A #### [facility] ([id number]) [address] [place] [address] 10487 pH (U) 6.0 [pH] Normal 5.0-8.5 [facility] Comment on above: Performed By: #### U A #### [facility] ([id number]) [address] [place] [address] 87555 Protein Ql (U) Negative Normal [facility] Comment on above: Performed By: #### U A #### [facility] ([id number]) [address] [place] [address] 76710 Specific gravity (U) [Rel density] 1.020 Normal 1.003-1.03 5 [facility] Comment on above: Performed By: #### U A #### [facility] ([id number]) [address] [place] [address] 54324 TURBIDITY CLEAR Normal CLEAR [facility] Comment on above: Performed By: #### U A #### [facility] ([id number]) [address] [place] [address] 38399 Urobilinogen Qn (U) 0.2 {Jose'U}/dL Normal <1.1 [facility] Comment on above: Performed By: #### U A #### [facility] ([id number]) [address] [place] [address] 02656 URINE CULTUREon 03-03-2024 Bacteria identified Cx Nom (U) CULTURE RESULTS NO GROWTH AT <1000 CFU/mL Normal [facility] Comment on above: Performed By: #### 6 30-4 #### [facility] ([id number]) [address], [address] [place] [address] BASIC METABOLIC PANLon 03-02 Anion gap [Moles/Vol] 9 mmol/L Normal 5-15 [facility] Comment on above: Performed By: #### C BCA, BMP #### [facility] ([id number]) [address] [place] [address] 90281 Calcium [Mass/Vol] 8.4 mg/dL Low 8.5-10.5 [facility] Comment on above: Performed By: #### C BCA, BMP #### [facility] ([id number]) [address] [place] [address] 58838 Chloride [Moles/Vol] 106 mmol/L Normal 98-109 [facility] Comment on above: Performed By: #### C BCA, BMP #### [facility] ([id number]) [address] [place] [address] 53344 CO2 [Moles/Vol] 27 mmol/L Normal 22-32 [facility] Comment on above: Performed By: #### C BCA, BMP #### [facility] ([id number]) [address] [place] [address] 92398 Creatinine [Mass/Vol] 1.13 mg/dL High 0.40-1.00 [facility] Comment on above: Result Comment: METH OD TRACEABLE TO IDMS STANDARD Performed By: #### C BCA, BMP #### [facility] ([id number]) [address] [place] [address] 06256 GFR/1.73 sq M.predicted among non-blacks MDRD (S/P/Bld) [Vol rate/Area] 50 mL/min/{1.73_m2} Low >59 [facility] Comment on above: Result Comment: Reported eGFR is based on the CKD-EPI 2020 equation that does not use a race coefficient. Performed By: #### C BCA, BMP #### [facility] ([id number]) [address] [place] [address] 97478 Glucose [Mass/Vol] 106 mg/dL High 65-99 [facility] Comment on above: Performed By: #### C BCA, BMP #### [facility] ([id number]) [address] [place] [address] 19479 Potassium [Moles/Vol] 3.4 mmol/L Low 3.5-5.0 [facility] Comment on above: Performed By: #### C BCA, BMP #### [facility] ([id number]) [address] [place] [address] 92619 Sodium [Moles/Vol] 142 mmol/L Normal 134-146 [facility] Comment on above: Performed By: #### C BCA, BMP #### [facility] ([id number]) [address] [place] [address] 63902 Urea nitrogen [Mass/Vol] 35 mg/dL High 5-27 [facility] Comment on above: Performed By: #### C BCA, BMP #### [facility] ([id number]) [address] [place] [address] 42432 CBC AND AUTO DIFFon 03-02-20 24 ABSOLUTE BASOPHIL 0.1 X10E9/L Normal 0.0-0.2 [facility] Comment on above: Performed By: #### C BCA, BMP #### [facility] ([id number]) [address] [place] [address] 86830 ABSOLUTE NEUTROPHIL 7.0 X10E9/L High 1.5-6.6 [facility] Comment on above: Performed By: #### C SOWMYA, BMP #### [facility] ([id number]) [address] [place] [address] 36557 Basophils/100 WBC (Bld) 0.6 % Normal [facility] Comment on above: Performed By: #### C SOWMYA, BMP #### [facility] ([id number]) [address] [place] [address] 31986 Eosinophils (Bld) [#/Vol] 0.1 10*3/uL Normal 0.0-0.4 [facility] Comment on above: Performed By: #### C SOWMYA, BMP #### [facility] ([id number]) [address] [place] [address] 19199 Eosinophils/100 WBC (Bld) 0.5 % Normal [facility] Comment on above: Performed By: #### C SOWMYA, BMP #### [facility] ([id number]) [address] [place] [address] 18705 Erythrocyte distribution width (RBC) [Ratio] 18.2 % High 11.5-15.0 [facility] Comment on above: Performed By: #### C SOWMYA, BMP #### [facility] ([id number]) [address] [place] [address] 91428 Hematocrit (Bld) [Volume fraction] 30.8 % Low 35-47 [facility] Comment on above: Performed By: #### C SOWMYA, BMP #### [facility] ([id number]) [address] [place] [address] 19388 Hemoglobin (Bld) [Mass/Vol] 10.0 g/dL Low 11.7-15.5 [facility] Comment on above: Performed By: #### C SOWMYA, BMP #### [facility] ([id number]) [address] [place] [address] 12005 Lymphocytes (Bld) [#/Vol] 4.1 10*3/uL High 1.0-3.5 [facility] Comment on above: Performed By: #### C SOWMYA, BMP #### [facility] ([id number]) [address] [place] [address] 96560 Lymphocytes/100 WBC (Bld) 32.1 % Normal [facility] Comment on above: Performed By: #### C SOWMYA, BMP #### [facility] ([id number]) [address] [place] [address] 73720 MCH (RBC) [Entitic mass] 24.9 pg Low 27-34 [facility] Comment on above: Performed By: #### C SOWMYA, BMP #### [facility] ([id number]) [address] [place] [address] 68554 MCHC (RBC) [Mass/Vol] 32.3 g/dL Normal 32-36 [facility] Comment on above: Performed By: #### C SOWMYA, BMP #### [facility] ([id number]) [address] [place] [address] 37529 MCV (RBC) [Entitic vol] 77 fL Low 80-100 [facility] Comment on above: Performed By: #### C SOWMYA, BMP #### [facility] ([id number]) [address] [place] [address] 33833 Monocytes (Bld) [#/Vol] 1.5 10*3/uL High 0-0.9 [facility] Comment on above: Performed By: #### C SOWMYA, BMP #### [facility] ([id number]) [address] [place] [address] 81496 Monocytes/100 WBC (Bld) 11.5 % Normal [facility] Comment on above: Performed By: #### C SOWMYA, BMP #### [facility] ([id number]) [address] [place] [address] 85753 Neutrophils/100 WBC (Bld) 55.3 % Normal [facility] Comment on above: Performed By: #### C SOWMYA, BMP #### [facility] ([id number]) [address] [place] [address] 30481 Platelet mean volume (Bld) [Entitic vol] 7.4 fL Normal 7-12 [facility] Comment on above: Performed By: #### C SOWMYA, BMP #### [facility] ([id number]) [address] [place] [address] 17248 Platelets (Bld) [#/Vol] 360 10*3/uL Normal 150-450 [facility] Comment on above: Performed By: #### C SOWMYA, BMP #### [facility] ([id number]) [address] [place] [address] 35759 RBC COUNT 4.00 X10E12/L Normal 3.80-5.20 [facility] Comment on above: Performed By: #### C SOWMYA, BMP #### [facility] ([id number]) [address] [place] [address] 96537 WBC (Bld) [#/Vol] 12.7 10*3/uL High 4.0-11.0 [facility] Comment on above: Performed By: #### C BCA, BMP #### [facility] ([id number]) [address] [place] [address] 71227 BASIC METABOLIC PANLon 02-26 Anion gap [Moles/Vol] 8 mmol/L Normal 5-15 [facility] Comment on above: Performed By: #### C BCA, BMP #### [facility] ([id number]) [address] [place] [address] 92632 Calcium [Mass/Vol] 8.7 mg/dL Normal 8.5-10.5 [facility] Comment on above: Performed By: #### C SOWMYA, BMP #### [facility] ([id number]) [address] [place] [address] 37462 Chloride [Moles/Vol] 97 mmol/L Low 98-109 [facility] Comment on above: Performed By: #### C SOWMYA, BMP #### [facility] ([id number]) [address] [place] [address] 93510 CO2 [Moles/Vol] 29 mmol/L Normal 22-32 [facility] Comment on above: Performed By: #### C SOWMYA, BMP #### [facility] ([id number]) [address] [place] [address] 44961 Creatinine [Mass/Vol] 1.22 mg/dL High 0.40-1.00 [facility] Comment on above: Result Comment: METH OD TRACEABLE TO IDMS STANDARD Performed By: #### C SOWMYA, BMP #### [facility] ([id number]) [address] [place] [address] 14557 GFR/1.73 sq M.predicted among non-blacks MDRD (S/P/Bld) [Vol rate/Area] 45 mL/min/{1.73_m2} Low >59 [facility] Comment on above: Result Comment: Reported eGFR is based on the CKD-EPI 1 equation that does not use a race coefficient. Performed By: #### C BCA, BMP #### [facility] ([id number]) [address] [place] [address] 04955 Glucose [Mass/Vol] 123 mg/dL High 65-99 [facility] Comment on above: Performed By: #### C BCA, BMP #### [facility] ([id number]) [address] [place] [address] 58818 Potassium [Moles/Vol] 4.0 mmol/L Normal 3.5-5.0 [facility] Comment on above: Performed By: #### Timmy DENG, BMP #### [facility] ([id number]) [address] [place] [address] 31336 Sodium [Moles/Vol] 134 mmol/L Normal 134-146 [facility] Comment on above: Performed By: #### Timmy DENG, BMP #### [facility] ([id number]) [address] [place] [address] 11162 Urea nitrogen [Mass/Vol] 35 mg/dL High 5-27 [facility] Comment on above: Performed By: #### Timmy DENG, BMP #### [facility] ([id number]) [address] [place] [address] 02488 CBC AND AUTO DIFFon 02-27-20 24 Eosinophils (Bld) [#/Vol] 0.2 10*3/uL Normal 0.0-0.4 [facility] Comment on above: Performed By: #### Timmy DENG, BMP #### [facility] ([id number]) [address] [place] [address] 45305 Eosinophils/100 WBC (Bld) 1.0 % Normal [facility] Comment on above: Performed By: #### Timmy DENG, BMP #### [facility] ([id number]) [address] [place] [address] 09280 Erythrocyte distribution width (RBC) [Ratio] 18.2 % High 11.5-15.0 [facility] Comment on above: Performed By: #### Timmy DENG, BMP #### [facility] ([id number]) [address] [place] [address] 92551 Hematocrit (Bld) [Volume fraction] 35.1 % Normal 35-47 [facility] Comment on above: Performed By: #### Timmy DENG, BMP #### [facility] ([id number]) [address] [place] [address] 71264 Hemoglobin (Bld) [Mass/Vol] 11.4 g/dL Low 11.7-15.5 [facility] Comment on above: Performed By: #### C SOWMYA, BMP #### [facility] ([id number]) [address] [place] [address] 94045 Lymphocytes (Bld) [#/Vol] 4.0 10*3/uL High 1.0-3.5 [facility] Comment on above: Performed By: #### C SOWMYA, BMP #### [facility] ([id number]) [address] [place] [address] 15246 Lymphocytes/100 WBC (Bld) 21.0 % Normal [facility] Comment on above: Performed By: #### C SOWMYA, BMP #### [facility] ([id number]) [address] [place] [address] 64008 MCH (RBC) [Entitic mass] 24.6 pg Low 27-34 [facility] Comment on above: Performed By: #### C SOWMYA, BMP #### [facility] ([id number]) [address] [place] [address] 21375 MCHC (RBC) [Mass/Vol] 32.5 g/dL Normal 32-36 [facility] Comment on above: Performed By: #### C SOWMYA, BMP #### [facility] ([id number]) [address] [place] [address] 11813 MCV (RBC) [Entitic vol] 76 fL Low 80-100 [facility] Comment on above: Performed By: #### C SOWMYA, BMP #### [facility] ([id number]) [address] [place] [address] 39393 Monocytes (Bld) [#/Vol] 1.4 10*3/uL High 0-0.9 [facility] Comment on above: Performed By: #### C SOWMYA, BMP #### [facility] ([id number]) [address] [place] [address] 66231 Monocytes/100 WBC (Bld) 7.6 % Normal [facility] Comment on above: Performed By: #### C SOWMYA, BMP #### [facility] ([id number]) [address] [place] [address] 56587 MYELOCYTE 1.0 % Normal [facility] Comment on above: Performed By: #### C SOWMYA, BMP #### [facility] ([id number]) [address] [place] [address] 42308 Neutrophils (Bld) [#/Vol] 13.1 10*3/uL High 1.5-6.6 [facility] Comment on above: Performed By: #### C SOWMYA, BMP #### [facility] ([id number]) [address] [place] [address] [place] [address] Platelet mean volume (Bld) [Entitic vol] 7.2 fL Normal 7-12 [facility] Comment on above: Performed By: #### C SOWMYA, BMP #### [facility] ([id number]) [address] [place] [address] 83735 Platelets (Bld) [#/Vol] 398 10*3/uL Normal 150-450 [facility] Comment on above: Performed By: #### C SOWMYA, BMP #### [facility] ([id number]) [address] [place] [address] 55351 RBC COUNT 4.63 X10E12/L Normal 3.80-5.20 [facility] Comment on above: Performed By: #### C SOWMYA, BMP #### [facility] ([id number]) [address] [place] [address] 58157 SEG NEUTROPHIL 69.4 % Normal [facility] Comment on above: Performed By: #### C BCA, BMP #### [facility] ([id number]) [address] [place] [address] 14641 WBC (Bld) [#/Vol] 18.9 10*3/uL High 4.0-11.0 [facility] Comment on above: Performed By: #### C BCA, BMP #### [facility] ([id number]) [address] [place] [address] 38872 CBC AND AUTO DIFFon 02-25-20 24 Band form neutrophils/100 WBC (Bld) 1.0 % Normal Comment on above: Performed By: #### E LEC #### [facility] ([id number]) [address], [address] [place] [address] Erythrocyte distribution width (RBC) [Ratio] 18.4 % High 11.5-15.0 Comment on above: Performed By: #### E LEC #### [facility] ([id number]) [address], [address] [place] [address] Hematocrit (Bld) [Volume fraction] 36.0 % Normal 35-47 Comment on above: Performed By: #### E LEC #### [facility] ([id number]) [address], [address] [place] [address] Hemoglobin (Bld) [Mass/Vol] 11.6 g/dL Low 11.7-15.5 Comment on above: Performed By: #### E LEC #### [facility] ([id number]) [address], [facility] [address] [place] [address] HYPOCHROMIA 1+ Abnormal NONE Comment on above: Performed By: #### E LEC #### [facility] ([id number]) [address], [address] [place] [address] Lymphocytes (Bld) [#/Vol] 4.6 10*3/uL High 1.0-3.5 Comment on above: Performed By: #### E LEC #### [facility] ([id number]) [address], [address] [place] [address] Lymphocytes/100 WBC (Bld) 28.0 % Normal Comment on above: Performed By: #### E LEC #### [facility] ([id number]) [address], [address] [place] [address] MCH (RBC) [Entitic mass] 24.9 pg Low 27-34 Comment on above: Performed By: #### E LEC #### [facility] ([id number]) [address], [address] [place] [address] MCHC (RBC) [Mass/Vol] 32.3 g/dL Normal 32-36 [facility] Comment on above: Performed By: #### E LEC #### [facility] ([id number]) [address], [address] [place] [address] MCV (RBC) [Entitic vol] 77 fL Low 80-100 Comment on above: Performed By: #### E LEC #### [facility] ([id number]) [address], [address] [place] [address] Monocytes (Bld) [#/Vol] 1.3 10*3/uL High 0-0.9 Comment on above: Performed By: #### E LEC #### [facility] ([id number]) [address], [address] [place] [address] Monocytes/100 WBC (Bld) 8.0 % Normal Comment on above: Performed By: #### E LEC #### [facility] ([id number]) [address], [address] [place] [address] MYELOCYTE 1.0 % Normal Comment on above: Performed By: #### E LEC #### [facility] ([id number]) [address], [address] [place] [address] Neutrophils (Bld) [#/Vol] 10.2 10*3/uL High 1.5-6.6 Comment on above: Performed By: #### E LEC #### [facility] ([id number]) [address], [address] [place] [address] Platelet mean volume (Bld) [Entitic vol] 6.8 fL Low 7-12 Comment on above: Performed By: #### E LEC #### [facility] ([id number]) [address], [address] [place] [address] Platelets (Bld) [#/Vol] 480 10*3/uL High 150-450 Comment on above: Performed By: #### E LEC #### [facility] ([id number]) [address], [address] [place] [address] RBC COUNT 4.66 X10E12/L Normal 3.80-5.20 Comment on above: Performed By: #### E LEC #### [facility] ([id number]) [address], [address] [place] [address] SEG NEUTROPHIL 62.0 % Normal Comment on above: Performed By: #### E LEC #### [facility] ([id number]) [address], [address] [place] [address] WBC (Bld) [#/Vol] 16.3 10*3/uL High 4.0-11.0 [facility] Comment on above: Performed By: #### E LEC #### [facility] ([id number]) [address], [address] [place] [address] COMPREHENSIVE METABOLIC PANE Harsha 02-25-2024 Albumin [Mass/Vol] 2.8 g/dL Low 3.2-5.3 [facility] Comment on above: Performed By: #### E LEC #### [facility] ([id number]) [address], [address] [place] [address] ALP [Catalytic activity/Vol] 61 U/L Normal 39-130 Comment on above: Performed By: #### E LEC #### [facility] ([id number]) [address], [address] [place] [address] ALT [Catalytic activity/Vol] 16 U/L Normal 0-31 Comment on above: Performed By: #### E LEC #### [facility] ([id number]) [address], [address] [place] [address] Anion gap [Moles/Vol] 8 mmol/L Normal 5-15 [facility] Comment on above: Performed By: #### E LEC #### [facility] ([id number]) [address], [address] [place] [address] AST [Catalytic activity/Vol] 20 U/L Normal 0-41 Comment on above: Performed By: #### E LEC #### [facility] ([id number]) [address], [address] [place] [address] Bilirubin [Mass/Vol] 0.3 mg/dL Normal 0.3-1.2 [facility] Comment on above: Performed By: #### E LEC #### [facility] ([id number]) [address], [address] [place] [address] Calcium [Mass/Vol] 9.1 mg/dL Normal 8.5-10.5 [facility] Comment on above: Performed By: #### E LEC #### [facility] ([id number]) [address], [address] [place] [address] Chloride [Moles/Vol] 101 mmol/L Normal 98-109 [facility] Comment on above: Performed By: #### E LEC #### [facility] ([id number]) [address], [address] [place] [address] CO2 [Moles/Vol] 29 mmol/L Normal 22-32 Comment on above: Performed By: #### E LEC #### [facility] ([id number]) [address] [address] [place] [address] Creatinine [Mass/Vol] 1.16 mg/dL High 0.40-1.00 [facility] Comment on above: Result Comment: METH OD TRACEABLE TO IDMS STANDARD Performed By: #### E LEC #### [facility] ([id number]) [address] [address] [place] [address] GFR/1.73 sq M.predicted among non-blacks MDRD (S/P/Bld) [Vol rate/Area] 48 mL/min/{1.73_m2} Low >59 Comment on above: Result Comment: Reported eGFR is based on the CKD-EPI 2020 equation that does not use a race coefficient. Performed By: #### E LEC #### [facility] ([id number]) [address] [place] [address] Glucose [Mass/Vol] 73 mg/dL Normal 65-99 [facility] Comment on above: Performed By: #### E LEC #### [facility] ([id number]) [address] [address] [place] [address] Potassium [Moles/Vol] 5.0 mmol/L Normal 3.5-5.0 [facility] Comment on above: Performed By: #### E LEC #### [facility] ([id number]) [address] [place] [address] Protein [Mass/Vol] 6.2 g/dL Normal 6.0-8.0 [facility] Comment on above: Performed By: #### E LEC #### [facility] ([id number]) [address] [place] [address] Sodium [Moles/Vol] 138 mmol/L Normal 134-146 [facility] Comment on above: Performed By: #### E LEC #### [facility] ([id number]) [address] [place] [address] Urea nitrogen [Mass/Vol] 44 mg/dL High 5-27 Comment on above: Performed By: #### E LEC #### [facility] ([id number]) [address] [place] [address] Creatinine (U) [Mass/Vol]on 02-25-2024 URINE CREATININE,RDM 57.71 mg/dL Normal [facility] Comment on above: Performed By: #### E LEC #### [facility] ([id number]) [address] [place] [address] MAGNESIUMon 02-25-2024 Magnesium [Mass/Vol] 1.9 mg/dL Normal 1.8-2.6 [facility] Comment on above: Performed By: #### E LEC #### [facility] ([id number]) [address], [address] [place], [place] [address] Osmolality (U) [Osmolality]o n 02-25-2024 URINE OSMOLALITY 631 mOsm/kg H2 Normal 300-1300 [facility] Comment on above: Performed By: #### E LEC #### [facility] ([id number]) [address], [address] [place] [address] PHOSPHORUSon 02-25-2024 Phosphate [Mass/Vol] 5.9 mg/dL High 2.4-4.9 [facility] Comment on above: Result Comment: SPEC IMEN HEMOLYZED, RESULTS INCREASED SLIGHTLY HEMOLYZED Performed By: #### E LEC #### [facility] ([id number]) [address], [address] [place] [address] Provider Letteron 02-25-2024 Provider Letter (Inserted Image. Sahra ble to display) February 25, 2024 GERA PERDUE [address] [address] : 1945 Dear Gera Perdue , We have been trying to reach you with no success. It is important that you return our call regarding scheduling the bladder scope (Cystoscopy) upon receiving this letter. Also, at the time of your call, please provide us with your current information. We have left 2 voice mail messages with no response. Thank you for your prompt attention to this matter. Sincerely, [facility] option #3 Normal [facility] URINE SODIUM,RANDOMon 2023 Sodium (U) [Moles/Vol] 119 mmol/L Normal Pr [facility] Comment on above: Performed By: #### E LEC #### [facility] ([id number]) [address] [address] AFB CULTURE(CONCENTRATED)on 02-24-2024 Mycobacterium sp identified Org specific cx Nom (Unsp spec) SPECIMEN NOTES SPECIMEN 2 AFB SMEAR NO ACID FAST BACILLI (CONCENTRATED SMEAR) CULTURE RESULTS NO ACID FAST BACILLI ISOLATED IN 8 WEEKS Normal Comment on above: Performed By: #### E LEC #### [facility] ([id number]) [address], [address] [place] [address] Mycobacterium sp identified Org specific cx Nom (Unsp spec) SPECIMEN NOTES SPECIMEN 1 AFB SMEAR NO ACID FAST BACILLI (CONCENTRATED SMEAR) CULTURE RESULTS NO ACID FAST BACILLI ISOLATED IN 8 WEEKS [facility] Comment on above: Performed By: #### E LEC #### [facility] ([id number]) [address] [facility] [place] [address] AND DIFFon 2023 BODY FLUID COMMENT Interpreta tion-- ------ Normal Comment on above: Result Comment: Refe rence values for this fluid type are undefined, as fluid accumulation is considered abnormal. Performed By: #### E LEC #### [facility] ([id number]) [address] [place] [address] FLUID CLARITY HAZY Normal Comment on above: Performed By: #### E LEC #### [facility] ([id number]) [address] [place] [address] FLUID COLOR COLORLESS Normal Comment on above: Performed By: #### E LEC #### [facility] ([id number]) [address] [place] [address] FLUID LYMPHOCYTE 6 % Normal [facility] Comment on above: Performed By: #### E LEC #### [facility] ([id number]) [address] [place] [address] FLUID NEUTROPHILS 69 % Normal [facility] Comment on above: Performed By: #### E LEC #### [facility] ([id number]) [address] [place] [address] 34 /uL Normal Comment on above: Performed By: #### E LEC #### [facility] ([id number]) [address] [place] [address] FLUID SPECIMEN TYPE BRONCHOALVEOLAR LAVAGE Normal Comment on above: Result Comment: RIGH T LUNG, LOWER LOBE SPECIMEN 2 Performed By: #### E LEC #### [facility] ([id number]) [address] [place] [address] MACROPHAGES 25 % Normal Comment on above: Performed By: #### E LEC #### [facility] ([id number]) [address] [place] [address] 440 /uL Normal [facility] Comment on above: Performed By: #### E LEC #### [facility] ([id number]) [address] [place] [address] CBC AND AUTO DIFFon 02-24-20 Erythrocyte distribution width (RBC) [Ratio] 18.3 % High 11.5-15.0 Comment on above: Performed By: #### E LEC #### [facility] ([id number]) [address], [address] [place] [address] Hematocrit (Bld) [Volume fraction] 34.7 % Low 35-47 Comment on above: Performed By: #### E LEC #### [facility] ([id number]) [address], [address] [place] [address] Hemoglobin (Bld) [Mass/Vol] 11.2 g/dL Low 11.7-15.5 Comment on above: Performed By: #### E LEC #### [facility] ([id number]) [address], [address] [place] [address] Lymphocytes (Bld) [#/Vol] 2.8 10*3/uL Normal 1.0-3.5 Comment on above: Performed By: #### E LEC #### [facility] ([id number]) [address], [address] [place] [address] Lymphocytes/100 WBC (Bld) 17.0 % Normal Comment on above: Performed By: #### E LEC #### [facility] ([id number]) [address], [address] [place] [address] MCH (RBC) [Entitic mass] 24.6 pg Low 27-34 Comment on above: Performed By: #### E LEC #### [facility] ([id number]) [address], [address] [place] [address] MCHC (RBC) [Mass/Vol] 32.1 g/dL Normal 32-36 [facility] Comment on above: Performed By: #### E LEC #### [facility] ([id number]) [address], [address] [place] [address] MCV (RBC) [Entitic vol] 77 fL Low 80-100 Comment on above: Performed By: #### E LEC #### [facility] ([id number]) [address], [address] [place] [address] Metamyelocytes/100 WBC (Bld) 1.0 % Normal Comment on above: Performed By: #### E LEC #### [facility] ([id number]) [address] [place] [address] Monocytes (Bld) [#/Vol] 0.7 10*3/uL Normal 0-0.9 Comment on above: Performed By: #### E LEC #### [facility] ([id number]) [address], [address] [place] [address] Monocytes/100 WBC (Bld) 4.0 % Normal Comment on above: Performed By: #### E LEC #### [facility] ([id number]) [address], [address] [place] [address] Neutrophils (Bld) [#/Vol] 12.7 10*3/uL High 1.5-6.6 Comment on above: Performed By: #### E LEC #### [facility] ([id number]) [address], [address] [place] [address] Platelet mean volume (Bld) [Entitic vol] 6.7 fL Low 7-12 Comment on above: Performed By: #### E LEC #### [facility] ([id number]) [address], [address] [place] [address] Platelets (Bld) [#/Vol] 479 10*3/uL High 150-450 Comment on above: Performed By: #### E LEC #### [facility] ([id number]) [address] [place] [address] RBC COUNT 4.54 X10E12/L Normal 3.80-5.20 Comment on above: Performed By: #### E LEC #### [facility] ([id number]) [address], [address] [place] [address] RBC morphology finding Nom (Bld) NORMAL Normal Comment on above: Performed By: #### E LEC #### [facility] ([id number]) [address], [address] [place] [address] SEG NEUTROPHIL 78.0 % Normal Comment on above: Performed By: #### E LEC #### [facility] ([id number]) [address], [address] [place] [address] WBC (Bld) [#/Vol] 16.4 10*3/uL High 4.0-11.0 [facility] Comment on above: Performed By: #### E LEC #### [facility] ([id number]) [address], [address] [place] [address] COMPREHENSIVE METABOLIC PANE Harsha 02-24-2024 Albumin [Mass/Vol] 2.8 g/dL Low 3.2-5.3 [facility] Comment on above: Performed By: #### E LEC #### [facility] ([id number]) [address], [address] [place] [address] ALP [Catalytic activity/Vol] 63 U/L Normal 39-130 Comment on above: Performed By: #### E LEC #### [facility] ([id number]) [address], [address] [place] [address] ALT [Catalytic activity/Vol] 11 U/L Normal 0-31 Comment on above: Performed By: #### E LEC #### [facility] ([id number]) [address], [address] [place] [address] Anion gap [Moles/Vol] 6 mmol/L Normal 5-15 [facility] Comment on above: Performed By: #### E LEC #### [facility] ([id number]) [address], [address] [place] [address] AST [Catalytic activity/Vol] 12 U/L Normal 0-41 Comment on above: Performed By: #### E LEC #### [facility] ([id number]) [address] [place] [address] Bilirubin [Mass/Vol] 0.2 mg/dL Low 0.3-1.2 [facility] Comment on above: Performed By: #### E LEC #### [facility] ([id number]) [address], [address] [place] [address] Calcium [Mass/Vol] 9.1 mg/dL Normal 8.5-10.5 [facility] Comment on above: Performed By: #### E LEC #### [facility] ([id number]) [address], [address] [place] [address] Chloride [Moles/Vol] 101 mmol/L Normal 98-109 [facility] Comment on above: Performed By: #### E LEC #### [facility] ([id number]) [address], [address] [place] [address] CO2 [Moles/Vol] 31 mmol/L Normal 22-32 Comment on above: Performed By: #### E LEC #### [facility] ([id number]) [address], [address] [place] [address] Creatinine [Mass/Vol] 1.05 mg/dL High 0.40-1.00 [facility] Comment on above: Result Comment: METH OD TRACEABLE TO IDMS STANDARD Performed By: #### E LEC #### [facility] ([id number]) [address], [address] [place] [address] GFR/1.73 sq M.predicted among non-blacks MDRD (S/P/Bld) [Vol rate/Area] 54 mL/min/{1.73_m2} Low >59 Comment on above: Result Comment: Reported eGFR is based on the CKD-EPI 2020 equation that does not use a race coefficient. Performed By: #### E LEC #### [facility] ([id number]) [address], [address] [place] [address] Glucose [Mass/Vol] 91 mg/dL Normal 65-99 [facility] Comment on above: Performed By: #### E LEC #### [facility] ([id number]) [address], [address] [place] [address] Potassium [Moles/Vol] 4.5 mmol/L Normal 3.5-5.0 [facility] Comment on above: Performed By: #### E LEC #### [facility] ([id number]) [address], [address] [place] [address] Protein [Mass/Vol] 6.2 g/dL Normal 6.0-8.0 [facility] Comment on above: Performed By: #### E LEC #### [facility] ([id number]) [address], [address] [place] [address] Sodium [Moles/Vol] 138 mmol/L Normal 134-146 [facility] Comment on above: Performed By: #### E LEC #### [facility] ([id number]) [address] [place] [address], [facility] [address] [place] [address] Urea nitrogen [Mass/Vol] 33 mg/dL High 5-27 Comment on above: Performed By: #### E LEC #### [facility] ([id number]) [address] [place] [address], [address] [place] [address] Cytologyon 02-24-2024 Cytology Normal Comment on above: Result Comment: [facility] [address] [place] [address] Cytology Consultation Patient Name:LIDA PERDUEB:1945 (Age: 78)Gender:FTaken:02/24/2024eported:02/27/2024 16:56Physician(s):Elsa Quinonez MD ([phone])Copy To:[facility]e Huang [facility] #:[id number]. Rec. #:[id number]: #[id number] Final Cytologic Diagnosis 1. Right lower lobe, bronchial washing: No malignant cells identified. 2. Right lower lobe, bronchoalveolar lavage: No malignant cells identified. k/02/27/2024 [place] [address], License number: [id number].Electronically Signed Out By Agustin Darling MD Clinical History Shortness of breath [786.05]. Pneumonia of right lower lobe due to infectious organism [J18.9]. Gross Description 1. Received was 10mL of cloudy colorless fluid unfixed labeled as Brought, bronchial washings, right lower lobe . CytoLyt added in lab. Specimen placed in formalin at 19:00 and had a total fixation time of 6 hours. 2. Received was 15mL of cloudy colorless fluid unfixed labeled as Brought, BAL, right lower lobe . CytoLyt added in lab. Specimen placed in formalin at 19:00 and had a total fixation time of 6 hours. Source of Specimen 1: Right lower lobe, bronchial washing Cell block for Non-paradi operator (M), Level 2 H&E, Non PATIENT PARTNER ThinPrep 2: Right lower lobe, bronchoalveolar lavage Cell block for Non-paradi operator (M), Level 2 H&E, Non PATIENT PARTNER ThinPrep Fee Code(s): 1; 02388, 70475 2; 62233, [address]958 FUNGAL CULTUREon 02-24-2024 Fungus identified Cx Nom (Unsp spec) SPECIMEN NOTES SPECIMEN 2 FUNGAL SMEAR NO FUNGAL ELEMENTS SEEN ON CONCENTRATED SMEAR CULTURE RESULTS NO FUNGUS ISOLATED AFTER 4 WEEKS [facility] Comment on above: Performed By: #### E LEC #### [facility] ([id number]) [address] [place] [address], [address] [place] [address] Fungus identified Cx Nom (Unsp spec) SPECIMEN NOTES SPECIMEN 1 FUNGAL SMEAR NO FUNGAL ELEMENTS SEEN ON CONCENTRATED SMEAR CULTURE RESULTS NO FUNGUS ISOLATED AFTER 4 WEEKS [facility] Comment on above: Performed By: #### E LEC #### [facility] ([id number]) [address] [place] [address], [address] [place] [address] LOWER RESPIRATORY CULTUREon 02-24-2024 Bacteria identified Respiratory culture Nom (Sput) SPECIMEN NOTES SPECIMEN 2 GRAM STAIN 1 to 9 WHITE BLOOD CELLS/LPF 1 to 9 SQUAMOUS EPITHELIAL CELLS/LPF 0 CILIATED EPITHELIAL CELLS/LPF NO ORGANISMS SEEN CULTURE RESULTS RARE NORMAL ORAL KIMBERLY [facility] Comment on above: Performed By: #### E LEC #### [facility] ([id number]) [address] [place] [address], [address] [place] [address] Bacteria identified Respiratory culture Nom (Sput) SPECIMEN NOTES SPECIMEN 1 GRAM STAIN 1 to 9 WHITE BLOOD CELLS/LPF 1 to 9 SQUAMOUS EPITHELIAL CELLS/LPF 0 CILIATED EPITHELIAL CELLS/LPF NO ORGANISMS SEEN CULTURE RESULTS RARE NORMAL ORAL KIMBERLY [facility] Comment on above: Performed By: #### E LEC #### [facility] ([id number]) [address] [place] [address], [address] [place] [address] M. pneumoniae DNA ELIZABETH+probe Ql (Unsp spec)on 02-24-2024 M PNEUMONIAE DNA PCR See Below Normal [facility] Comment on above: Result Comment: NOTE TEST RESULT FLAG UNIT REF.RANGE ------- Specimen Source See Below SPECIMEN SOURCE (MYCPCR) Sputum MYCOPLASMA PNEUM DNA Not Detected NOT DETECTED - A negative result does not rule out the presence of PCR inhibitors in the patient specimen or assay specific nucleic acid in concentrations below the level of detection by the assay. INTERPRETIVE INFORMATION: Mycoplasma pneumoniae by PCR This test was developed and its performance characteristics determined by [facility] It has not been cleared or approved by the [place] Food and Drug Administration. This test was performed in a CLIA certified laboratory and is intended for clinical purposes. Performed By: [facility]. [address] [place] [address] Librarian: Eduardo Lindsay MD, PhD CLIA Number: [id number] SOURCE: Sputum Performed By: #### E LEC #### [facility] ([id number]) [address] [address] MAGNESIUMon 02-24-2024 Magnesium [Mass/Vol] 2.1 mg/dL Normal 1.8-2.6 [facility] Comment on above: Performed By: #### E LEC #### [facility] ([id number]) [address] [facility] [address] [place] [address] PHOSPHORUSon 02-24-2024 Phosphate [Mass/Vol] 4.6 mg/dL Normal 2.4-4.9 [facility] Comment on above: Performed By: #### E LEC #### [facility] ([id number]) [address], [facility] [address] [place] [address] Procalcitonin IA [Mass/Vol]o n 02-24-2024 PROCALCITONIN <0.05 Normal <0.05 [facility] [place] [facility] Comment on above: Result Comment: NOTE <0.50 ng/mL - Low risk of severe sepsis and/or septic shock. <2.00 ng/mL - Recommend retesting within 6-24 hours. >2.00 ng/mL - High risk of sepsis and/or septic shock. Performed By: #### E LEC #### [facility] ([id number]) [address] [address] CBC AND AUTO DIFFon 02-23-20 24 Band form neutrophils/100 WBC (Bld) 1.0 % Normal Comment on above: Performed By: #### E LEC #### [facility] ([id number]) [address] [address] Erythrocyte distribution width (RBC) [Ratio] 18.2 % High 11.5-15.0 Comment on above: Performed By: #### E LEC #### [facility] ([id number]) [address] [address] [place] [address] Hematocrit (Bld) [Volume fraction] 35.2 % Normal 35-47 Comment on above: Performed By: #### E LEC #### [facility] ([id number]) [address] [address] Hemoglobin (Bld) [Mass/Vol] 11.3 g/dL Low 11.7-15.5 Comment on above: Performed By: #### E LEC #### [facility] ([id number]) [address] [address] [place] [address] HYPOCHROMIA 2+ Abnormal NONE Comment on above: Performed By: #### E LEC #### [facility] ([id number]) [address] [address] Lymphocytes (Bld) [#/Vol] 2.6 10*3/uL Normal 1.0-3.5 Comment on above: Performed By: #### E LEC #### [facility] ([id number]) [address] [place] [address] Lymphocytes/100 WBC (Bld) 16.0 % Normal Comment on above: Performed By: #### E LEC #### [facility] ([id number]) [address] [place] [address] MCH (RBC) [Entitic mass] 24.8 pg Low 27-34 Comment on above: Performed By: #### E LEC #### [facility] ([id number]) [address] [place] [address] MCHC (RBC) [Mass/Vol] 32.2 g/dL Normal 32-36 [facility] Comment on above: Performed By: #### E LEC #### [facility] ([id number]) [address], [address] [place] [address] MCV (RBC) [Entitic vol] 77 fL Low 80-100 Comment on above: Performed By: #### E LEC #### [facility] ([id number]) [address] [place] [address] Monocytes (Bld) [#/Vol] 1.0 10*3/uL High 0-0.9 Comment on above: Performed By: #### E LEC #### [facility] ([id number]) [address], [address] [place] [address] Monocytes/100 WBC (Bld) 6.0 % Normal Comment on above: Performed By: #### E LEC #### [facility] ([id number]) [address], [address] [place] [address] MYELOCYTE 3.0 % Normal Comment on above: Performed By: #### E LEC #### [facility] ([id number]) [address], [address] [place] [address] Neutrophils (Bld) [#/Vol] 12.2 10*3/uL High 1.5-6.6 Comment on above: Performed By: #### E LEC #### [facility] ([id number]) [address], [address] [place] [address] Platelet mean volume (Bld) [Entitic vol] 6.7 fL Low 7-12 Comment on above: Performed By: #### E LEC #### [facility] ([id number]) [address], [address] [place] [address] Platelets (Bld) [#/Vol] 493 10*3/uL High 150-450 Comment on above: Performed By: #### E LEC #### [facility] ([id number]) [address], [address] [place] [address] RBC COUNT 4.57 X10E12/L Normal 3.80-5.20 Comment on above: Performed By: #### E LEC #### [facility] ([id number]) [address], [address] [place] [address] SEG NEUTROPHIL 74.0 % Normal Comment on above: Performed By: #### E LEC #### [facility] ([id number]) [address], [address] [place] [address] WBC (Bld) [#/Vol] 16.3 10*3/uL High 4.0-11.0 [facility] Comment on above: Performed By: #### E LEC #### [facility] ([id number]) [address], [address] [place] [address] CK [Catalytic activity/Vol]o n 02-23-2024 CPK <10 Low 24-170 Comment on above: Performed By: #### E LEC #### [facility] ([id number]) [address] [place] [address] COMPREHENSIVE METABOLIC PANE Harsha 02-23-2024 Albumin [Mass/Vol] 2.9 g/dL Low 3.2-5.3 [facility] Comment on above: Performed By: #### E LEC #### [facility] ([id number]) [address], [address] [place] [address] ALP [Catalytic activity/Vol] 69 U/L Normal 39-130 Comment on above: Performed By: #### E LEC #### [facility] ([id number]) [address], [address] [place] [address] ALT [Catalytic activity/Vol] 7 U/L Normal 0-31 Comment on above: Performed By: #### E LEC #### [facility] ([id number]) [address], [address] [place] [address] Anion gap [Moles/Vol] 7 mmol/L Normal 5-15 [facility] Comment on above: Performed By: #### E LEC #### [facility] ([id number]) [address], [address] [place] [address] AST [Catalytic activity/Vol] 11 U/L Normal 0-41 Comment on above: Performed By: #### E LEC #### [facility] ([id number]) [address], [address] [place] [address] Bilirubin [Mass/Vol] 0.2 mg/dL Low 0.3-1.2 [facility] Comment on above: Performed By: #### E LEC #### [facility] ([id number]) [address] [place] [address] Calcium [Mass/Vol] 9.4 mg/dL Normal 8.5-10.5 [facility] Comment on above: Performed By: #### E LEC #### [facility] ([id number]) [address], [address] [place] [address] Chloride [Moles/Vol] 103 mmol/L Normal 98-109 [facility] Comment on above: Performed By: #### E LEC #### [facility] ([id number]) [address] [place] [address] CO2 [Moles/Vol] 31 mmol/L Normal 22-32 Comment on above: Performed By: #### E LEC #### [facility] ([id number]) [address], [address] [place] [address] Creatinine [Mass/Vol] 0.97 mg/dL Normal 0.40-1.00 [facility] Comment on above: Result Comment: METH OD TRACEABLE TO IDMS STANDARD Performed By: #### E LEC #### [facility] ([id number]) [address] [place] [address] GFR/1.73 sq M.predicted among non-blacks MDRD (S/P/Bld) [Vol rate/Area] 60 mL/min/{1.73_m2} Normal >59 Comment on above: Result Comment: Reported eGFR is based on the CKD-EPI 2020 equation that does not use a race coefficient. Performed By: #### E LEC #### [facility] ([id number]) [address], [address] [place] [address] Glucose [Mass/Vol] 86 mg/dL Normal 65-99 [facility] Comment on above: Performed By: #### E LEC #### [facility] ([id number]) [address], [address] [place] [address] Potassium [Moles/Vol] 4.6 mmol/L Normal 3.5-5.0 [facility] Comment on above: Performed By: #### E LEC #### [facility] ([id number]) [address], [address] [place] [address] Protein [Mass/Vol] 6.6 g/dL Normal 6.0-8.0 [facility] Comment on above: Performed By: #### E LEC #### [facility] ([id number]) [address], [address] [place] [address] Sodium [Moles/Vol] 141 mmol/L Normal 134-146 [facility] Comment on above: Performed By: #### E LEC #### [facility] ([id number]) [address], [address] [place] [address] Urea nitrogen [Mass/Vol] 31 mg/dL High 5-27 Comment on above: Performed By: #### E LEC #### [facility] ([id number]) [address], [address] [place] [address] FL SWALLOW MOTILITY FUNCTION on 02-23-2024 FL SWALLOW MOTILITY FUNCTION FL SWALLOW MOTILITY FUNCTION STUDY: Video fluoroscopic swallow study. CLINICAL HISTORY: Oropharyngeal dysphagia. COMPARISON: 10/15/2023. FINDINGS: Lateral videofluoroscopy performed during administration of various media by speech therapy. Fluoroscopic time was 1:33 minutes. Reference air kerma was 2.74 mGy. 8 cine runs captured electronically without additional radiation exposure. Zero fluoroscopic spot images obtained. The patient was administered applesauce, fruit, and a cracker as well as thin barium by spoon and mildly thick barium by spoon, straw, and cup. Penetration of thin barium by spoon. No aspiration or penetration is seen. IMPRESSION: 1. Penetration of thin barium by spoon. 2. No aspiration or penetration of mildly thick barium or any solids. Correlate with dedicated speech pathology report for additional details and recommendations. Approved by Resident Alethea Miller MD on 02/23/2024 8:32 AM León Sheehan have personally reviewed the image(s) and agree with and/or edited the report Finalized by León Parikh on 02/23/2024 8:44 AM Normal MAGNESIUMon 02-23-2024 Magnesium [Mass/Vol] 1.7 mg/dL Low 1.8-2.6 [facility] Comment on above: Performed By: #### E LEC #### [facility] ([id number]) [address], [address] [place] [address] PHOSPHORUSon 02-23-2024 Phosphate [Mass/Vol] 3.8 mg/dL Normal 2.4-4.9 [facility] Comment on above: Performed By: #### E LEC #### [facility] ([id number]) [address], [address] [place] [address] CBC AND AUTO DIFFon 02-22-20 Erythrocyte distribution width (RBC) [Ratio] 18.6 % High 11.5-15.0 Comment on above: Performed By: #### E LEC #### [facility] ([id number]) [address], [address] [place] [address] Hematocrit (Bld) [Volume fraction] 34.2 % Low 35-47 Comment on above: Performed By: #### E LEC #### [facility] ([id number]) [address], [address] [place] [address] Hemoglobin (Bld) [Mass/Vol] 11.0 g/dL Low 11.7-15.5 Comment on above: Performed By: #### E LEC #### [facility] ([id number]) [address], [address] [place] [address] HYPOCHROMIA 2+ Abnormal NONE Comment on above: Performed By: #### E LEC #### [facility] ([id number]) [address], [address] [place] [address] Lymphocytes (Bld) [#/Vol] 2.6 10*3/uL Normal 1.0-3.5 Comment on above: Performed By: #### E LEC #### [facility] ([id number]) [address], [address] [place] [address] Lymphocytes/100 WBC (Bld) 17.0 % Normal Comment on above: Performed By: #### E LEC #### [facility] ([id number]) [address], [address] [place] [address] MCH (RBC) [Entitic mass] 24.5 pg Low 27-34 Comment on above: Performed By: #### E LEC #### [facility] ([id number]) [address], [address] [place] [address] MCHC (RBC) [Mass/Vol] 32.0 g/dL Normal 32-36 [facility] Comment on above: Performed By: #### E LEC #### [facility] ([id number]) [address], [address] [place] [address] MCV (RBC) [Entitic vol] 76 fL Low 80-100 Comment on above: Performed By: #### E LEC #### [facility] ([id number]) [address], [address] [place] [address] Monocytes (Bld) [#/Vol] 0.6 10*3/uL Normal 0-0.9 Comment on above: Performed By: #### E LEC #### [facility] ([id number]) [address] [place] [address] Monocytes/100 WBC (Bld) 4.0 % Normal Comment on above: Performed By: #### E LEC #### [facility] ([id number]) [address], [address] [place] [address] Neutrophils (Bld) [#/Vol] 12.0 10*3/uL High 1.5-6.6 Comment on above: Performed By: #### E LEC #### [facility] ([id number]) [address], [address] [place] [address] Platelet mean volume (Bld) [Entitic vol] 6.6 fL Low 7-12 Comment on above: Performed By: #### E LEC #### [facility] ([id number]) [address], [address] [place] [address] Platelets (Bld) [#/Vol] 444 10*3/uL Normal 150-450 Comment on above: Performed By: #### E LEC #### [facility] ([id number]) [address], [address] [place] [address] RBC COUNT 4.47 X10E12/L Normal 3.80-5.20 Comment on above: Performed By: #### E LEC #### [facility] ([id number]) [address], [address] [place] [address] SEG NEUTROPHIL 79.0 % Normal Comment on above: Performed By: #### E LEC #### [facility] ([id number]) [address], [address] [place] [address] WBC (Bld) [#/Vol] 15.2 10*3/uL High 4.0-11.0 [facility] Comment on above: Performed By: #### E LEC #### [facility] ([id number]) [address], [address] [place] [address] COMPREHENSIVE METABOLIC PANE Harsha 02-22-2024 Albumin [Mass/Vol] 2.9 g/dL Low 3.2-5.3 [facility] Comment on above: Performed By: #### E LEC #### [facility] ([id number]) [address], [address] [place] [address] ALP [Catalytic activity/Vol] 80 U/L Normal 39-130 Comment on above: Performed By: #### E LEC #### [facility] ([id number]) [address], [address] [place] [address] ALT [Catalytic activity/Vol] 9 U/L Normal 0-31 Comment on above: Performed By: #### E LEC #### [facility] ([id number]) [address], [address] [place] [address] Anion gap [Moles/Vol] 8 mmol/L Normal 5-15 [facility] Comment on above: Performed By: #### E LEC #### [facility] ([id number]) [address], [address] [place] [address] AST [Catalytic activity/Vol] 12 U/L Normal 0-41 Comment on above: Performed By: #### E LEC #### [facility] ([id number]) [address], [address] [place] [address] Bilirubin [Mass/Vol] 0.2 mg/dL Low 0.3-1.2 [facility] Comment on above: Performed By: #### E LEC #### [facility] ([id number]) [address], [address] [place] [address] Calcium [Mass/Vol] 9.2 mg/dL Normal 8.5-10.5 [facility] Comment on above: Performed By: #### E LEC #### [facility] ([id number]) [address], [address] [place] [address] Chloride [Moles/Vol] 103 mmol/L Normal 98-109 [facility] Comment on above: Performed By: #### E LEC #### [facility] ([id number]) [address], [address] [place] [address] CO2 [Moles/Vol] 32 mmol/L Normal 22-32 Comment on above: Performed By: #### E LEC #### [facility] ([id number]) [address], [address] [place] [address] Creatinine [Mass/Vol] 0.94 mg/dL Normal 0.40-1.00 [facility] Comment on above: Result Comment: METH OD TRACEABLE TO IDMS STANDARD Performed By: #### E LEC #### [facility] ([id number]) [address] [place] [address] GFR/1.73 sq M.predicted among non-blacks MDRD (S/P/Bld) [Vol rate/Area] 62 mL/min/{1.73_m2} Normal >59 Comment on above: Result Comment: Reported eGFR is based on the CKD-EPI 1 equation that does not use a race coefficient. Performed By: #### E LEC #### [facility] ([id number]) [address], [address] [place] [address] Glucose [Mass/Vol] 128 mg/dL High 65-99 [facility] Comment on above: Performed By: #### E LEC #### [facility] ([id number]) [address] [place] [address] Potassium [Moles/Vol] 4.2 mmol/L Normal 3.5-5.0 [facility] Comment on above: Performed By: #### E LEC #### [facility] ([id number]) [address], [address] [place] [address] Protein [Mass/Vol] 6.9 g/dL Normal 6.0-8.0 [facility] Comment on above: Performed By: #### E LEC #### [facility] ([id number]) [address], [address] [place] [address] Sodium [Moles/Vol] 143 mmol/L Normal 134-146 [facility] Comment on above: Performed By: #### E LEC #### [facility] ([id number]) [address], [address] [place] [address] Urea nitrogen [Mass/Vol] 29 mg/dL High 5-27 Comment on above: Performed By: #### E LEC #### [facility] ([id number]) [address], [address] [place] [address] MAGNESIUMon 02-22-2024 Magnesium [Mass/Vol] 2.0 mg/dL Normal 1.8-2.6 [facility] Comment on above: Performed By: #### E LEC #### [facility] ([id number]) [address], [address] [place] [address] PHOSPHORUSon 02-22-2024 Phosphate [Mass/Vol] 3.3 mg/dL Normal 2.4-4.9 [facility] Comment on above: Performed By: #### E LEC #### [facility] ([id number]) [address] [address] C DIFFICILE BY PCRon 024 C. difficile toxin genes ELIZABETH+probe Ql (Stl) TOXIGENIC C DIFF Negative (qualifier value) 027 NAP1 Negative (qualifier value) Normal [facility] Comment on above: Performed By: #### E LEC #### [facility] ([id number]) [address] [address] CBC AND AUTO DIFFon 02-21-20 24 ABSOLUTE BASOPHIL 0.0 X10E9/L Normal 0.0-0.2 [facility] Comment on above: Performed By: #### E LEC #### [facility] ([id number]) [address] [place] [address] ABSOLUTE NEUTROPHIL 10.9 X10E9/L High 1.5-6.6 [facility] Comment on above: Performed By: #### E LEC #### [facility] ([id number]) [address] [place] [address] Basophils/100 WBC (Bld) 0.2 % Normal Comment on above: Performed By: #### E LEC #### [facility] ([id number]) [address] [place] [address] Eosinophils (Bld) [#/Vol] 0.0 10*3/uL Normal 0.0-0.4 Comment on above: Performed By: #### E LEC #### [facility] ([id number]) [address], [address] [place] [address] Eosinophils/100 WBC (Bld) 0.0 % Normal Comment on above: Performed By: #### E LEC #### [facility] ([id number]) [address] [place] [address] Erythrocyte distribution width (RBC) [Ratio] 18.0 % High 11.5-15.0 Comment on above: Performed By: #### E LEC #### [facility] ([id number]) [address], [address] [place] [address] Hematocrit (Bld) [Volume fraction] 32.3 % Low 35-47 Comment on above: Performed By: #### E LEC #### [facility] ([id number]) [address], [address] [place] [address] Hemoglobin (Bld) [Mass/Vol] 10.5 g/dL Low 11.7-15.5 Comment on above: Performed By: #### E LEC #### [facility] ([id number]) [address] [place] [address] Lymphocytes (Bld) [#/Vol] 2.1 10*3/uL Normal 1.0-3.5 Comment on above: Performed By: #### E LEC #### [facility] ([id number]) [address] [place] [address] Lymphocytes/100 WBC (Bld) 14.7 % Normal Comment on above: Performed By: #### E LEC #### [facility] ([id number]) [address] [place] [address] MCH (RBC) [Entitic mass] 24.6 pg Low 27-34 Comment on above: Performed By: #### E LEC #### [facility] ([id number]) [address], [address] [place] [address] MCHC (RBC) [Mass/Vol] 32.5 g/dL Normal 32-36 [facility] Comment on above: Performed By: #### E LEC #### [facility] ([id number]) [address] [place] [address] MCV (RBC) [Entitic vol] 76 fL Low 80-100 Comment on above: Performed By: #### E LEC #### [facility] ([id number]) [address], [address] [place] [address] Monocytes (Bld) [#/Vol] 1.3 10*3/uL High 0-0.9 Comment on above: Performed By: #### E LEC #### [facility] ([id number]) [address] [place] [address] Monocytes/100 WBC (Bld) 9.2 % Normal Comment on above: Performed By: #### E LEC #### [facility] ([id number]) [address], [address] [place] [address] Neutrophils/100 WBC (Bld) 75.9 % Normal Comment on above: Performed By: #### E LEC #### [facility] ([id number]) [address], [address] [place] [address] Platelet mean volume (Bld) [Entitic vol] 6.7 fL Low 7-12 Comment on above: Performed By: #### E LEC #### [facility] ([id number]) [address], [address] [place] [address] Platelets (Bld) [#/Vol] 448 10*3/uL Normal 150-450 Comment on above: Performed By: #### E LEC #### [facility] ([id number]) [address] [place] [address] RBC COUNT 4.27 X10E12/L Normal 3.80-5.20 Comment on above: Performed By: #### E LEC #### [facility] ([id number]) [address] [place] [address] WBC (Bld) [#/Vol] 14.4 10*3/uL High 4.0-11.0 [facility] Comment on above: Performed By: #### E LEC #### [facility] ([id number]) [address] [place] [address] COMPREHENSIVE METABOLIC PANE Harsha 02-21-2024 Albumin [Mass/Vol] 2.9 g/dL Low 3.2-5.3 [facility] Comment on above: Performed By: #### E LEC #### [facility] ([id number]) [address], [address] [place] [address] ALP [Catalytic activity/Vol] 81 U/L Normal 39-130 Comment on above: Performed By: #### E LEC #### [facility] ([id number]) [address] [place] [address] ALT [Catalytic activity/Vol] 4 U/L Normal 0-31 Comment on above: Performed By: #### E LEC #### [facility] ([id number]) [address] [place] [address] Anion gap [Moles/Vol] 7 mmol/L Normal 5-15 [facility] Comment on above: Performed By: #### E LEC #### [facility] ([id number]) [address] [place] [address] AST [Catalytic activity/Vol] 9 U/L Normal 0-41 Comment on above: Performed By: #### E LEC #### [facility] ([id number]) [address] [place] [address] Bilirubin [Mass/Vol] 0.2 mg/dL Low 0.3-1.2 [facility] Comment on above: Performed By: #### E LEC #### [facility] ([id number]) [address] [place] [address] Calcium [Mass/Vol] 8.9 mg/dL Normal 8.5-10.5 [facility] Comment on above: Performed By: #### E LEC #### [facility] ([id number]) [address] [place] [address] Chloride [Moles/Vol] 102 mmol/L Normal 98-109 [facility] Comment on above: Performed By: #### E LEC #### [facility] ([id number]) [address] [place] [address] CO2 [Moles/Vol] 34 mmol/L High 22-32 Comment on above: Performed By: #### E LEC #### [facility] ([id number]) [address] [place] [address] Creatinine [Mass/Vol] 1.09 mg/dL High 0.40-1.00 [facility] Comment on above: Result Comment: METH OD TRACEABLE TO IDMS STANDARD Performed By: #### E LEC #### [facility] ([id number]) [address] [place] [address] GFR/1.73 sq M.predicted among non-blacks MDRD (S/P/Bld) [Vol rate/Area] 52 mL/min/{1.73_m2} Low >59 Comment on above: Result Comment: Reported eGFR is based on the CKD-EPI 2020 equation that does not use a race coefficient. Performed By: #### E LEC #### [facility] ([id number]) [address] [place] [address] Glucose [Mass/Vol] 150 mg/dL High 65-99 [facility] Comment on above: Performed By: #### E LEC #### [facility] ([id number]) [address] [place] [address] Potassium [Moles/Vol] 4.0 mmol/L Normal 3.5-5.0 [facility] Comment on above: Performed By: #### E LEC #### [facility] ([id number]) [address] [place] [address] Protein [Mass/Vol] 6.8 g/dL Normal 6.0-8.0 [facility] Comment on above: Performed By: #### E LEC #### [facility] ([id number]) [address] [place] [address] Sodium [Moles/Vol] 143 mmol/L Normal 134-146 [facility] Comment on above: Performed By: #### E LEC #### [facility] ([id number]) [address] [place] [address] Urea nitrogen [Mass/Vol] 25 mg/dL Normal 5-27 Comment on above: Performed By: #### E LEC #### [facility] ([id number]) [address] [place] [address] GI PANELon 02-21-2024 Gastrointestinal pathogens DNA and RNA panel ELIZABETH+non-probe (Stl) SPECIMEN SOURCE STOOL CAMPYLOBACTER Not detected (qualifier value) PLESIOMONAS Not detected (qualifier value) SALMONELLA Not detected (qualifier value) VIBRIO Not detected (qualifier value) VIBRIO CHOLERAE Not detected (qualifier value) Y. ENTEROCOLITICA Not detected (qualifier value) AGGREGATIVE E COLI Not detected (qualifier value) PATHOGENIC E COLI Not detected (qualifier value) TOXIGENIC E COLI Not detected (qualifier value) SHIGA TOXIN E COLI Not detected (qualifier value) SHIGELLA-E COLI Not detected (qualifier value) CRYPTOSPORIDIUM Not detected (qualifier value) CYCLOSPORA Not detected (qualifier value) E HISTOLYTICA Not detected (qualifier value) GIARDIA LAMBLIA Not detected (qualifier value) ADENOVIRUS Not detected (qualifier value) ASTROVIRUS Not detected (qualifier value) NOROVIRUS Not detected (qualifier value) ROTAVIRUS A Not detected (qualifier value) SAPOVIRUS Not detected (qualifier value) Normal [facility] Comment on above: Performed By: #### E LEC #### [facility] ([id number]) [address] [place] [address] MAGNESIUMon 02-21-2024 Magnesium [Mass/Vol] 2.4 mg/dL Normal 1.8-2.6 [facility] Comment on above: Performed By: #### E LEC #### [facility] ([id number]) [address] [place] [address] PHOSPHORUSon 02-21-2024 Phosphate [Mass/Vol] 3.7 mg/dL Normal 2.4-4.9 [facility] Comment on above: Performed By: #### E LEC #### [facility] ([id number]) [address] [place] [address] CBC AND AUTO DIFFon 02-20-20 24 ABSOLUTE BASOPHIL 0.0 X10E9/L Normal 0.0-0.2 [facility] Comment on above: Performed By: #### E LEC #### [facility] ([id number]) [address] [place] [address] ABSOLUTE NEUTROPHIL 10.4 X10E9/L High 1.5-6.6 [facility] Comment on above: Performed By: #### E LEC #### [facility] ([id number]) [address] [place] [address] Basophils/100 WBC (Bld) 0.1 % Normal Comment on above: Performed By: #### E LEC #### [facility] ([id number]) [address] [place] [address] Eosinophils (Bld) [#/Vol] 0.0 10*3/uL Normal 0.0-0.4 Comment on above: Performed By: #### E LEC #### [facility] ([id number]) [address] [place] [address] Eosinophils/100 WBC (Bld) 0.0 % Normal Comment on above: Performed By: #### E LEC #### [facility] ([id number]) [address] [place] [address] Erythrocyte distribution width (RBC) [Ratio] 18.1 % High 11.5-15.0 Comment on above: Performed By: #### E LEC #### [facility] ([id number]) [address] [place] [address] Hematocrit (Bld) [Volume fraction] 33.6 % Low 35-47 Comment on above: Performed By: #### E LEC #### [facility] ([id number]) [address] [place] [address] Hemoglobin (Bld) [Mass/Vol] 11.2 g/dL Low 11.7-15.5 Comment on above: Performed By: #### E LEC #### [facility] ([id number]) [address] [place] [address] Lymphocytes (Bld) [#/Vol] 1.3 10*3/uL Normal 1.0-3.5 Comment on above: Performed By: #### E LEC #### [facility] ([id number]) [address] [place] [address] Lymphocytes/100 WBC (Bld) 10.6 % Normal Comment on above: Performed By: #### E LEC #### [facility] ([id number]) [address] [place] [address] MCH (RBC) [Entitic mass] 25.1 pg Low 27-34 Comment on above: Performed By: #### E LEC #### [facility] ([id number]) [address] [place] [address] MCHC (RBC) [Mass/Vol] 33.3 g/dL Normal 32-36 [facility] Comment on above: Performed By: #### E LEC #### [facility] ([id number]) [address] [place] [address] MCV (RBC) [Entitic vol] 76 fL Low 80-100 Comment on above: Performed By: #### E LEC #### [facility] ([id number]) [address] [place] [address] Monocytes (Bld) [#/Vol] 0.5 10*3/uL Normal 0-0.9 Comment on above: Performed By: #### E LEC #### [facility] ([id number]) [address] [place] [address] Monocytes/100 WBC (Bld) 3.7 % Normal Comment on above: Performed By: #### E LEC #### [facility] ([id number]) [address] [place] [address] Neutrophils/100 WBC (Bld) 85.6 % Normal Comment on above: Performed By: #### E LEC #### [facility] ([id number]) [address] [place] [address] Platelet mean volume (Bld) [Entitic vol] 6.9 fL Low 7-12 Comment on above: Performed By: #### E LEC #### [facility] ([id number]) [address] [place] [address] Platelets (Bld) [#/Vol] 425 10*3/uL Normal 150-450 Comment on above: Performed By: #### E LEC #### [facility] ([id number]) [address], [address] [place] [address] RBC COUNT 4.45 X10E12/L Normal 3.80-5.20 Comment on above: Performed By: #### E LEC #### [facility] ([id number]) [address], [address] [place] [address] WBC (Bld) [#/Vol] 12.1 10*3/uL High 4.0-11.0 [facility] Comment on above: Performed By: #### E LEC #### [facility] ([id number]) [address], [address] [place] [address] COMPREHENSIVE METABOLIC PANE Harsha 02-20-2024 Albumin [Mass/Vol] 3.0 g/dL Low 3.2-5.3 [facility] Comment on above: Performed By: #### E LEC #### [facility] ([id number]) [address], [address] [place] [address] ALP [Catalytic activity/Vol] 81 U/L Normal 39-130 Comment on above: Performed By: #### E LEC #### [facility] ([id number]) [address], [address] [place] [address] ALT [Catalytic activity/Vol] U/L Normal 0-31 Comment on above: Performed By: #### E LEC #### [facility] ([id number]) [address], [address] [place] [address] Anion gap [Moles/Vol] 10 mmol/L Normal 5-15 [facility] Comment on above: Performed By: #### E LEC #### [facility] ([id number]) [address], [address] [place] [address] AST [Catalytic activity/Vol] 9 U/L Normal 0-41 Comment on above: Performed By: #### E LEC #### [facility] ([id number]) [address], [address] [place] [address] Bilirubin [Mass/Vol] 0.2 mg/dL Low 0.3-1.2 [facility] Comment on above: Performed By: #### E LEC #### [facility] ([id number]) [address], [address] [place] [address] Calcium [Mass/Vol] 9.1 mg/dL Normal 8.5-10.5 [facility] Comment on above: Performed By: #### E LEC #### [facility] ([id number]) [address], [address] [place] [address] Chloride [Moles/Vol] 97 mmol/L Low 98-109 [facility] Comment on above: Performed By: #### E LEC #### [facility] ([id number]) [address], [address] [place] [address] CO2 [Moles/Vol] 33 mmol/L High 22-32 Comment on above: Performed By: #### E LEC #### [facility] ([id number]) [address] [address] [place] [address] Creatinine [Mass/Vol] 1.16 mg/dL High 0.40-1.00 [facility] Comment on above: Result Comment: METH OD TRACEABLE TO IDMS STANDARD Performed By: #### E LEC #### [facility] ([id number]) [address], [address] [place] [address] GFR/1.73 sq M.predicted among non-blacks MDRD (S/P/Bld) [Vol rate/Area] 48 mL/min/{1.73_m2} Low >59 Comment on above: Result Comment: Reported eGFR is based on the CKD-EPI 2020 equation that does not use a race coefficient. Performed By: #### E LEC #### [facility] ([id number]) [address], [address] [place] [address] Glucose [Mass/Vol] 171 mg/dL High 65-99 [facility] Comment on above: Performed By: #### E LEC #### [facility] ([id number]) [address] [address] [place] [address] Potassium [Moles/Vol] 3.6 mmol/L Normal 3.5-5.0 [facility] Comment on above: Performed By: #### E LEC #### [facility] ([id number]) [address], [address] [place] [address] Protein [Mass/Vol] 7.1 g/dL Normal 6.0-8.0 [facility] Comment on above: Performed By: #### E LEC #### [facility] ([id number]) [address], [address] [place] [address] Sodium [Moles/Vol] 140 mmol/L Normal 134-146 [facility] Comment on above: Performed By: #### E LEC #### [facility] ([id number]) [address], [address] [place] [address] Urea nitrogen [Mass/Vol] 16 mg/dL Normal 5-27 Comment on above: Performed By: #### E LEC #### [facility] ([id number]) [address], [address] [place] [address] MAGNESIUMon 02-20-2024 Magnesium [Mass/Vol] 2.8 mg/dL High 1.8-2.6 [facility] Comment on above: Performed By: #### E LEC #### [facility] ([id number]) [address], [address] [place] [address] Magnesium [Mass/Vol] 1.5 mg/dL Low 1.8-2.6 [facility] Comment on above: Performed By: #### E LEC #### [facility] ([id number]) [address], [address] [place] [address] PHOSPHORUSon 02-20-2024 Phosphate [Mass/Vol] 3.6 mg/dL Normal 2.4-4.9 [facility] Comment on above: Performed By: #### E LEC #### [facility] ([id number]) [address], [address] [place] [address] POTASSIUMon 02-20-2024 Potassium [Moles/Vol] 4.1 mmol/L Normal 3.5-5.0 [facility] Comment on above: Performed By: #### E LEC #### [facility] ([id number]) [address], [address] [place] [address] BASIC METABOLIC PANLon 02-18 Anion gap [Moles/Vol] 10 mmol/L Normal 5-15 [facility] Comment on above: Performed By: #### Timmy MILLIGAN, BMP, , 2776-10 #### [facility] ([id number]) [address], [address] [place] [address] Calcium [Mass/Vol] 9.5 mg/dL Normal 8.5-10.5 [facility] Comment on above: Performed By: #### Timmy MILLIGAN, BMP, , 2776-10 #### [facility] ([id number]) [address], [address] [place] [address] Chloride [Moles/Vol] 96 mmol/L Low 98-109 [facility] Comment on above: Performed By: #### Timmy MILLIGAN, SANTOSH, , 2776-10 #### [facility] ([id number]) [address], [address] [place] [address] CO2 [Moles/Vol] 32 mmol/L Normal 22-32 Comment on above: Performed By: #### Timmy MILLIGAN, BMP, , 2776-10 #### [facility] ([id number]) [address], [address] [place] [address] Creatinine [Mass/Vol] 1.10 mg/dL High 0.40-1.00 [facility] Comment on above: Result Comment: METH OD TRACEABLE TO IDMS STANDARD Performed By: #### Timmy MILLIGAN, BMP, , 2776-10 #### [facility] ([id number]) [address], [address] [place] [address] GFR/1.73 sq M.predicted among non-blacks MDRD (S/P/Bld) [Vol rate/Area] 51 mL/min/{1.73_m2} Low >59 Comment on above: Result Comment: Reported eGFR is based on the CKD-EPI 2020 equation that does not use a race coefficient. Performed By: #### C SRINI, SANTOSH, , 2776-10 #### [facility] ([id number]) [address], [address] [place] [address] Glucose [Mass/Vol] 131 mg/dL High 65-99 [facility] Comment on above: Performed By: #### Timmy MILLIGAN, BMP, , 2776-10 #### [facility] ([id number]) [address] [address] [place] [address] Potassium [Moles/Vol] 3.9 mmol/L Normal 3.5-5.0 [facility] Comment on above: Performed By: #### Timmy MILLIGAN, [facility], , 2776-10 #### [facility] ([id number]) [address] [address] [place] [address] Sodium [Moles/Vol] 138 mmol/L Normal 134-146 [facility] Comment on above: Performed By: #### Timmy MILLIGAN, [facility], , 2776-10 #### [facility] ([id number]) [address] [place] [address] Urea nitrogen [Mass/Vol] 11 mg/dL Normal 5-27 Comment on above: Performed By: #### C BC, BMP, , 2776-10 #### [facility] ([id number]) [address] [address] [place] [address] BLOOD CULTUREon 02-19-2024 Bacteria identified Aer cx Nom (Bld) SPECIMEN NOTES ONLY ANAEROBIC BOTTLE SENT CULTURE RESULTS NO GROWTH 5 DAYS Normal Comment on above: Performed By: #### E LEC #### [facility] ([id number]) [address], [address] [place] [address] Bacteria identified Aer cx Nom (Bld) CULTURE RESULTS NO GROWTH 5 DAYS Normal CBC AND AUTO DIFFon 02-19-20 24 ABSOLUTE BASOPHIL 0.0 X10E9/L Normal 0.0-0.2 [facility] Comment on above: Performed By: #### C SANTOSH MILLIGAN, , 2776-10 #### [facility] ([id number]) [address], [address] [place] [address] ABSOLUTE NEUTROPHIL 10.1 X10E9/L High 1.5-6.6 [facility] Comment on above: Performed By: #### SANTOSH SALEEM, , 2776-10 #### [facility] ([id number]) [address], [address] [place] [address] Basophils/100 WBC (Bld) 0.3 % Normal Comment on above: Performed By: #### SANTOSH SALEEM, , 2776-10 #### [facility] ([id number]) [address], [address] [place] [address] Eosinophils (Bld) [#/Vol] 0.2 10*3/uL Normal 0.0-0.4 Comment on above: Performed By: #### SANTOSH SALEEM, , 2776-10 #### [facility] ([id number]) [address], [address] [place] [address] Eosinophils/100 WBC (Bld) 1.3 % Normal Comment on above: Performed By: #### SANTOSH SALEEM, , 2776-10 #### [facility] ([id number]) [address], [address] [place] [address] Erythrocyte distribution width (RBC) [Ratio] 18.1 % High 11.5-15.0 Comment on above: Performed By: #### Timmy MILLIGAN [facility], , 2776-10 #### [facility] ([id number]) [address], [address] [place] [address] Hematocrit (Bld) [Volume fraction] 37.8 % Normal 35-47 Comment on above: Performed By: #### Timmy MILLIGAN [facility], , 2776-10 #### [facility] ([id number]) [address], [facility] [address] [place] [address] Hemoglobin (Bld) [Mass/Vol] 12.1 g/dL Normal 11.7-15.5 Comment on above: Performed By: #### Timmy MILLIGAN [facility], , 2776-10 #### [facility] ([id number]) [address], [address] [place] [address] Lymphocytes (Bld) [#/Vol] 2.5 10*3/uL Normal 1.0-3.5 Comment on above: Performed By: #### Timmy MILLIGAN [facility], , 2776-10 #### [facility] ([id number]) [address], [address] [place] [address] Lymphocytes/100 WBC (Bld) 17.9 % Normal Comment on above: Performed By: #### Timmy MILLIGAN [facility], , 2776-10 #### [facility] ([id number]) [address], [address] [place] [address] MCH (RBC) [Entitic mass] 24.4 pg Low 27-34 Comment on above: Performed By: #### Timmy MILLIGAN BMP, , 2776-10 #### [facility] ([id number]) [address], [address] [place] [address] MCHC (RBC) [Mass/Vol] 32.0 g/dL Normal 32-36 [facility] Comment on above: Performed By: #### Timmy MILLIGAN [facility], , 2776-10 #### [facility] ([id number]) [address], [address] [place] [address] MCV (RBC) [Entitic vol] 76 fL Low 80-100 Comment on above: Performed By: #### Timmy MILLIGAN [facility], , 2776-10 #### [facility] ([id number]) [address], [address] [place] [address] Monocytes (Bld) [#/Vol] 1.4 10*3/uL High 0-0.9 Comment on above: Performed By: #### SANTOSH SALEEM, , 2776-10 #### [facility] ([id number]) [address], [address] [place] [address] Monocytes/100 WBC (Bld) 9.9 % Normal Comment on above: Performed By: #### Timmy MILLIGAN [facility], , 2776-10 #### [facility] ([id number]) [address], [address] [place] [address] Neutrophils/100 WBC (Bld) 70.6 % Normal Comment on above: Performed By: #### Timmy MILLIGAN [facility], , 2776-10 #### [facility] ([id number]) [address], [address] [place] [address] Platelet mean volume (Bld) [Entitic vol] 6.9 fL Low 7-12 Comment on above: Performed By: #### SANTOSH SALEEM, , 2776-10 #### [facility] ([id number]) [address], [address] [place] [address] Platelets (Bld) [#/Vol] 485 10*3/uL High 150-450 Comment on above: Performed By: #### C SRINI, [facility], , 2776-10 #### [facility] ([id number]) [address], [address] [place] [address] RBC COUNT 4.95 X10E12/L Normal 3.80-5.20 Comment on above: Performed By: #### C SRINI, [facility], , 2776- #### [facility] ([id number]) [address], [address] [place] [address] WBC (Bld) [#/Vol] 14.2 10*3/uL High 4.0-11.0 [facility] Comment on above: Performed By: #### C SRINI, [facility], , 2776-10 #### [facility] ([id number]) [address], [address] [place] [address] CT ABDOMEN AND PELVIS W CONT on 02-19-2024 CT ABDOMEN AND PELVIS W CONT CT ABDOMEN AND PELVIS W CONT Clinical history: Acute nonlocalized abdominal pain. Technique: Spiral CT of the abdomen and pelvis was performed after the intravenous administration of contrast material. Sagittal and coronal reformatted imaging was performed. All CT scans at this facility use dose modulation, iterative reconstruction, and/or weight based dosing when appropriate to reduce radiation dose to as low as reasonably achievable. Comparisons: 10/10/2023. Findings: There is consolidation and atelectasis involving majority of the visualized portions of the right lower lobe. This is only partially imaged on this CT abdomen pelvis. See separately dictated CT chest report for complete discussion of findings above the diaphragm. There is trace right pleural effusion. No pneumoperitoneum. Dense atherosclerotic aortoiliac and visceral vascular calcifications are present without aneurysm. There is some mild ectasia of the right common iliac artery. Midline fat-containing ventral abdominal wall hernia again seen. There is a hernia involving the left mid to lower anterior abdominal wall containing colon and marginally containing some small bowel. No resultant obstruction. Findings fairly similar to the prior exam. The liver, spleen, adrenal glands and pancreas appear unremarkable. There is a mostly gas-filled duodenal diverticulum second portion of duodenum without surrounding inflammatory changes. No retroperitoneal nor mesenteric lymphadenopathy. No dilated bowel loops. Right kidney remains unremarkable. Cortical defects and dystrophic calcification again noted within the left kidney suggesting sequelae of prior insult such as infection or infarction. The left renal collecting system and proximal ureter remain dilated get this is a stable nonspecific finding. There is no retroperitoneal nor mesenteric lymphadenopathy. Appendix is normal. No ascites. Distal sigmoid anastomotic suture line again seen. Evaluation of much of the pelvis is limited by dense beam hardening and streak artifact from changes of ORIF proximal left femur. No acute vertebral body compression fracture. IMPRESSION: 1. No acute finding within the abdomen nor pelvis. 2. Stable chronic findings including fat-containing ventral abdominal wall hernia and bowel containing left lower quadrant abdominal wall hernia without evidence for obstruction nor other complication. 3. Atelectasis and consolidation involves the visualized portions of the right lower lobe with small adjacent pleural effusion. This is incompletely imaged on this CT abdomen pelvis; see separately dictated CT chest report for complete discussion of findings above the diaphragm. Finalized by Devonte Lehman MD on 02/19/2024 4:54 PM Normal [facility] URINE AGon 2023 L. pneumophila Ag IA Ql (U) [facility]INE AG Negative (qualifier value) NEGATIVE FOR L.PNEUMOPHILA SEROGROUP 1 ANTIGEN Normal Comment on above: Performed By: #### E LEC #### [facility] ([id number]) [address] [place] [address] Lactate (P timmy) [Moles/Vol]o n 02-19-2024 LACTATE W/REFLEX 1.7 mmol/L Normal 0.4-2.0 [facility] Comment on above: Result Comment: Result did not trigger repeat Lactate, re-order if needed. Performed By: #### C BC, BMP, [address]97[address]-8, 2777-1 #### [facility] ([id number]) [address], [address] [place] [address] MRSA PCR NASALon 02-19-2024 MRSA DNA ELIZABETH+probe Ql (Unsp spec) Negative Normal NEG Comment on above: Performed By: #### E LEC #### [facility] ([id number]) [address], [address] [place] [address] Natriuretic peptide B [Mass/ Vol]on 02-19-2024 Natriuretic peptide B (Bld) [Mass/Vol] 38 pg/mL Normal <100.0 Comment on above: Performed By: #### C SANTOSH MILLIGAN, , 2776-10 #### [facility] ([id number]) [address], [address] [place] [address] Nuclear Ab IA Ql (S)on 02-18 BRANDON Screen w/reflex Negative Normal NEG [facility] Comment on above: Result Comment: Testing performed using multiplex flow immunoassay. Eleven different antigens associated with systemic autoimmune diseases (dsDNA,Sm,Sm/SECURITY ATTENDANT,SECURITY ATTENDANT,Chromatin, SSA,SSB,Dacia-1,Scl70,Ribo P,Centromere B) are included in this screening test. Performed By: #### E LEC #### [facility] ([id number]) [address], [address] [place] [address] PROTIME AND INRon 02-19-2024 INR Coag (PPP) [Relative time] 1.1 {INR} Normal 0.8-1.1 Comment on above: Performed By: #### C SANTOSH MILLIGAN, , 2776-10 #### [facility] ([id number]) [address], [address] [place] [address] PT Coag (PPP) [Time] 13.1 s Normal 9.8-13.2 [facility] Comment on above: Performed By: #### C SANTOSH MILLIGAN, , 2776-10 #### [facility] ([id number]) [address], [address] [place] [address] Procalcitonin IA [Mass/Vol]o n 02-19-2024 PROCALCITONIN 0.10 ng/mL High <0.05 Comment on above: Result Comment: NOTE <0.50 ng/mL - Low risk of severe sepsis and/or septic shock. <2.00 ng/mL - Recommend retesting within 6-24 hours. >2.00 ng/mL - High risk of sepsis and/or septic shock. Performed By: #### E LEC #### [facility] ([id number]) [address], [address] [place] [address] Rheumatoid factor Nephelomet ry Qn (S)on 02-19-2024 RHEUMATOID FACTOR <10 Normal <20 [facility] Comment on above: Performed By: #### E LEC #### [facility] ([id number]) [address], [address] [place] [address] S PNEUMONIAE AG Uon 02-19-20 S. pneumoniae Ag Ql (U) Negative Normal NEG Comment on above: Performed By: #### E LEC #### [facility] ([id number]) [address], [address] [place] [address] SARS/FLU A+B/RSV by NAAT/Mol ecularon 02-19-2024 SARS/FLU A+B/RSV by NAAT/Molecular FLU A PCR Negative (qualifier value) FLU B PCR Negative (qualifier value) RSV by PCR Negative (qualifier value) SARS CoV 2 Not detected (qualifier value) NOTE The Xpert Xpress SARS-CoV-2/Flu/RSV Plus test is a rapid, multiplexed real-time RT-PCR test intended for the simultaneous qualitative detection and differentiation of SARS-CoV-2, influenza A, influenza B and respiratory syncytial virus (RSV) viral RNA from individuals suspected of respiratory viral infection consistent with COVID-19 by their healthcare provider. This test has not been validated in asymptomatic patients. The Xpert Xpress SARS-CoV-2 test is intended for use by qualified and trained operators who are performing tests using either Zigabid or Eponym systems and is limited to laboratories that meet the CLIA requirements to perform high and moderate complexity tests. The Xpert Xpress SARS-CoV-2/Flu/RSV Plus is only for use under the Food and Drug Administration's Emergency Use Authorization. Results are for the simultaneous detection and differentiation of SARS-CoV-2, influenza A, influenza B and RSV nucleic acids in clinical specimens. SARS-CoV-2, influenza A, influenza B and RSV RNA identified by this test are generally detectable in upper respiratory samples during the acute phase of infection. Positive results are indicative of the presence of the identified virus, but do not rule out bacterial infection or co-infection with other pathogens not detected by this test. Clinical correlation with patient history and other diagnostic information is necessary to determine patient infection status. The agent detected may not be the definite cause of disease. Negative results do not preclude SARS-CoV-2, influenza A, influenza B and RSV infection and should not be used as the sole basis for treatment or other patient management decisions. Negative results must be combined with clinical observations, patient history and epidemiological information. An Invalid result may occur with specimen-associated inhibition unable to be resolved with specimen repeat. Fact Sheet for Healthcare Providers: https://www.fda.gov/media/ 703082/download Fact Sheet for Patients: https://www.fda.gov/media/ 317092/download Normal Comment on above: Performed By: #### E LEC #### [facility] ([id number]) [address] [place] [address], [address] [address] STREP PCR THROATon S. pyogenes DNA ELIZABETH+probe Nom (Unsp spec) STREP PCR THROAT Negative (qualifier value) Streptococcus Group A NOT detected by nucleic acid amplification. Normal Comment on above: Performed By: #### E LEC #### [facility] ([id number]) [address] [facility], [address] [address] Troponin I.cardiac High sens itivity method [Mass/Vol]on 02-19-2024 1 HOUR TROP I, HIGH SENSITIVITY 4 ng/L Normal <16 Comment on above: Performed By: #### E LEC #### [facility] ([id number]) [address] [place] [address], [address] [address] TROPONIN I, HIGH SENSITIVITY 4 ng/L Normal <16 Comment on above: Performed By: #### C BC, [facility], [address]-1, 2777-1 #### [facility] ([id number]) [address] [place] [address] URINE CULTUREon 02-19-2024 Bacteria identified Cx Nom (U) CULTURE RESULTS 10,000 to 50,000 ORGANISMS/mL ENTEROCOCCUS SPECIES VANCOMYCIN RESISTANT Ampicillin or Amoxicillin is the drug of choice for uncomplicated cystitis caused by enterococci. Cephalosporins are inappropriate. 10,000 to 50,000 ORGANISMS/mL NORMAL URO GENITAL KIMBERLY [ S = SUSCEPTIBLE R = RESISTANT I = INTERMEDIATE S-DO = Susceptible-dose dependent NS = Non-suscceptible NO = No Interpretation ] Organism: ENTEROCOCCUS SPECIES Antibiotic Interpretation NATALIA Status AMPICILLIN R >=32 F LEVOFLOXACIN R >=8 F LINEZOLID S 2 F NITROFURANTOIN I 64 F VANCOMYCIN R >=32 F [ S = SUSCEPTIBLE R = RESISTANT I = INTERMEDIATE S-DO = Susceptible-dose dependent NS = Non-suscceptible NO = No Interpretation ] Organism: ENTEROCOCCUS SPECIES Antibiotic Interpretation NATALIA Status DAPTOMYCIN S F Susceptible Comment on above: Performed By: #### E LEC #### [facility] ([id number]) [address] [place] [address] URN MACROSCOPIC NURon 2023 BILIRUBIN OLVIN Negative Normal NEG Comment on above: Performed By: #### E LEC #### [facility] ([id number]) [address], [address] [place] [address] BLOOD/HGB OLVIN Small Abnormal NEG Comment on above: Performed By: #### E LEC #### [facility] ([id number]) [address], [address] [place] [address] GLUCOSE OLVIN Negative Normal NEG Comment on above: Performed By: #### E LEC #### [facility] ([id number]) [address] [place] [address], [address] [place] [address] KETONES OLVIN Negative Normal NEG Comment on above: Performed By: #### E LEC #### [facility] ([id number]) [facility] [facility], [address] [place] [address] LEUKOCYTE ESTERASE OLVIN Small Abnormal NEG [facility] Comment on above: Performed By: #### E LEC #### [facility] ([id number]) [address] [place] [address], [address] [place] [address] NITRITE OLVIN Negative Normal NEG Comment on above: Performed By: #### E LEC #### [facility] ([id number]) [address] [place] [address], [address] [place] [address] PH OLVIN 5.5 Normal 5.0-8.5 Comment on above: Performed By: #### E LEC #### [facility] ([id number]) [address] [place] [address], [address] [place] [address] PROTEIN OLVIN Negative Normal NEG Comment on above: Performed By: #### E LEC #### [facility] ([id number]) [address] [place] [address], [address] [place] [address] SPECIFIC GRAVITY OLVIN 1.015 Normal 1.003-1 .03 5 Comment on above: Performed By: #### E LEC #### [facility] ([id number]) [address] [place] [address], [address] [place] [address] UROBILINOGEN OLVIN 0.2 eu/dL Normal <1.1 [facility] Comment on above: Performed By: #### E LEC #### [facility] ([id number]) [address] [place] [address], [address] [place] [address] VENOUS BLOOD GASon 4 GUNJAN'S TEST Normal Comment on above: Performed By: #### E LEC #### [facility] ([id number]) [address] [place] [address] Base excess Calc (Bld) [Moles/Vol] 10.0 mmol/L High 0.0-2.0 Comment on above: Performed By: #### E LEC #### [facility] ([id number]) [address] [place] [address] Body temperature 98.6 [degF] Normal 37.0 [facility] Comment on above: Performed By: #### E LEC #### [facility] ([id number]) [address] [place] [address] HCO3 (Bld) [Moles/Vol] 34.7 mmol/L High 20.0-24.0 [facility] Comment on above: Performed By: #### E LEC #### [facility] ([id number]) [address], [address] [place] [address] INSP. O2 CONC. 30 % Normal Comment on above: Performed By: #### E LEC #### [facility] ([id number]) [address] [place] [address] Oxygen saturation in Blood 89.0 % Normal >80.0 Comment on above: Performed By: #### E LEC #### [facility] ([id number]) [address] [place] [address] OXYGEN SOURCE NC Normal Comment on above: Performed By: #### E LEC #### [facility] ([id number]) [address] [place] [address] PCO2, VENOUS 46.3 MMHG Normal 35-50 Comment on above: Performed By: #### E LEC #### [facility] ([id number]) [address] [facility], [address] [place] [address] PH, VENOUS 7.482 High 7.320-7.42 0 Comment on above: Performed By: #### E LEC #### [facility] ([id number]) [address] [facility], [address] [place] [address] PO2, VENOUS 53 MMHG High 30-50 Comment on above: Performed By: #### E LEC #### [facility] ([id number]) [address] [place] [address], [address] [place] [address] SAMPLE SITE N/A Normal Comment on above: Performed By: #### E LEC #### [facility] ([id number]) [address] [place] [address], [address] [address] SAMPLE TYPE VENOUS Normal Comment on above: Performed By: #### E LEC #### [facility] ([id number]) [address] [place] [address], [address] [address] XR CHEST 1 VWon 02-19-2024 XR CHEST 1 VW XR CHEST 1 VW XR CHEST 1 VW History: Chest pain. Short of breath One view study. Comparison: 10/06/2023 Impression: * Patient has been extubated. Right hemidiaphragm appears elevated. This could represent subpulmonic fluid or mass. It could represent interval development of hemidiaphragmatic paralysis. Consider two-view imaging. No pneumothorax. No consolidative airspace disease is seen.. Finalized by Norma Hayes MD on 02/19/2024 3:46 PM Normal aPTT Coag (PPP) [Time]on aPTT Coag (Bld) [Time] 32 s Normal 26-37 Pr [facility] Comment on above: Performed By: #### C BC, BMP, 96980-3, 2777-1 #### [facility] ([id number]) [address] [place] [address], [address] [place] [address] Basic Metabolic Panelon 04-2 2-2024 Creatinine Clr Calc Pharmacy 50.21 Normal [facility] Comment on above: Result Comment: PERF ORMED BY: [place] [address] PATHOLOGIST [employer] JORGE MURRELL M.D. Performed By: #### C BCMIGUEL, BMP #### [place] [address] [place] GFR/1.73 sq M.predicted MDRD (S/P/Bld) [Vol rate/Area] mL/min/{1.73_m2} Normal [facility] Comment on above: Performed By: #### C BCMIGUEL, BMP #### [place] [address] [place] Calcium [Mass/volume] in Ser um or PlasmaOrdered By: Marwajames Wassouf on 02-17-2024 Calcium [Mass/Vol] 8.5 mg/dL Low 8.6-10.3 [facility] Comment on above: Performed By: #### C BCNO, BMP #### [place] [address] [place] Carbon dioxide, total [Moles /volume] in Serum or PlasmaOrdered By: Marwan Wassouf on 02-17-2024 CO2 [Moles/Vol] 29.4 mmol/L Normal 21.0-31.0 [facility] Comment on above: Performed By: #### C BCNO, BMP #### [facility] [address] [place] [address] [place] Chloride [Moles/volume] in S kaveh or PlasmaOrdered By: Marwan Wassouf on 02-17-2024 Chloride [Moles/Vol] 103 mmol/L Normal 98-107 [facility] Comment on above: Performed By: #### C BCNO, BMP #### [place] [address] [place] Creatinine [Mass/volume] in Serum or PlasmaOrdered By: Marwan Wassouf on 02-17-2024 Creatinine [Mass/Vol] 0.90 mg/dL Normal 0.60-1.20 [facility] Comment on above: Performed By: #### C YUSRA, BMP #### [facility] [address] Erythrocyte distribution wid th [Ratio] by Automated countOrdered By: Lucho Grullon on 02-17-2024 Erythrocyte distribution width (RBC) [Ratio] 18.2 % High 11.9-15.3 [facility] Comment on above: Performed By: #### C YUSRA, BMP #### [address] Erythrocytes [#/volume] in B lood by Automated countOrdered By: Lucho Grullon on 02-17-2024 RBC (Bld) [#/Vol] 4.25 10*6/uL Normal 3.60-5.00 [facility] Comment on above: Performed By: #### C YUSRA, BMP #### [address] Glucose [Mass/volume] in Ser um or PlasmaOrdered By: Lucho Grullon on 02-17-2024 Glucose [Mass/Vol] 85 mg/dL Normal 70-100 [facility] Comment on above: ADA recommended refe rence rangeRandom Glucose Reference Range is dependent on time and content of last meal. Glucose of more than 200 mg/dL in a nonstressed, ambulatory subject supports the diagnosis of Diabetes Mellitus. Result Comment: [place] om Glucose Reference Range is dependent on time and content of last meal. Glucose of more than 200 mg/dL in a nonstressed, ambulatory subject supports the diagnosis of Diabetes Mellitus. ADA recommended reference range Performed By: #### C BCMIGUEL, BMP #### [address] Hematocrit [Volume Fraction] of Blood by Automated countOrdered By: Lucho Grullon on 02-17-2024 Hematocrit (Bld) [Volume fraction] 32.8 % Low 34.0-46.4 [facility] Comment on above: Performed By: #### C YUSRA, BMP #### [address] Hemoglobin [Mass/volume] in BloodOrdered By: Lucho Grullon on 02-17-2024 Hemoglobin (Bld) [Mass/Vol] 10.6 g/dL Low 11.8-15.4 [facility] Comment on above: Performed By: #### C YUSRA, BMP #### [facility] [address] [place] [address] Hemogram CBC Without Diffon 02-17-2024 Mean Corpuscular HGB Conc 32.3 g/dL Normal 32.0-35.0 [facility] Comment on above: Performed By: #### C YUSRA, BMP #### [address] WBC (Bld) [#/Vol] 10.9 10*3/uL Normal 3.8-11.6 [facility] Comment on above: Performed By: #### C YUSRA, BMP #### [address] Leukocytes [#/volume] correc juma for nucleated erythrocytes in Blood by Automated counOrdered By: Lucho Grullon on 02-17-2024 WBC corrected for nucl RBC Auto (Bld) [#/Vol] 10.9 10*3/uL 3.8-11.6 [facility] MCH [Entitic mass] by Automa juma countOrdered By: Lucho Grullon on 02-17-2024 MCH (RBC) [Entitic mass] 24.9 pg Normal 24.7-34.3 [facility] Comment on above: Performed By: #### C YUSRA, BMP #### [facility] [address] [place] [address] MCHC Auto (RBC) [Mass/Vol]Or dered By: Lucho Grullon on 02-17-2024 MCHC (RBC) [Mass/Vol] 32.3 g/dL 32.0-35.0 [facility] MCV [Entitic volume] by Auto mated countOrdered By: Lucho Grullon on 02-17-2024 MCV (RBC) [Entitic vol] 77.2 fL Low 80-100 [facility] Comment on above: Performed By: #### C BCMIGUEL, BMP #### [address] No Panel InformationOrdered By: Juneharini Génesismariza on 02-17-2024 Estimated GFR (CKD-EPI) > 60.0 mL/Min [facility] Creatinine Clearance (Chem 50.21 [facility] Platelet mean volume [Entiti c volume] in Blood by Automated countOrdered By: Juneharini Génesismariza on 02-17-2024 Platelet mean volume (Bld) [Entitic vol] 6.9 fL Normal 6.3-10.7 [facility] Comment on above: Result Comment: PERF ORMED BY: [place] [address] PATHOLOGIST [employer] JORGE MURRELL M.D. Performed By: #### C YUSRA, BMP #### [address] Platelets [#/volume] in Bloo d by Automated countOrdered By: Juneharini Génesismariza on 02-17-2024 Platelets (Bld) [#/Vol] 370 10*3/uL Normal 150-450 [facility] Comment on above: Performed By: #### C BCMIGUEL, BMP #### [address] Potassium [Moles/volume] in Serum or PlasmaOrdered By: Lucho Génesismariza on 02-17-2024 Potassium [Moles/Vol] 4.2 mmol/L Normal 3.5-5.1 [facility] Comment on above: Performed By: #### C BCNO, BMP #### [address] Serum or plasma anion gap de terminationOrdered By: Juneharini Génesismariza on 02-17-2024 Anion gap [Moles/Vol] 10.8 mmol/L Normal 6.0-15.0 [facility] Comment on above: Performed By: #### C BCNO, BMP #### [facility] [address] Sodium [Moles/volume] in Ser um or PlasmaOrdered By: Juneharini Génesismariza on 02-17-2024 Sodium [Moles/Vol] 139 mmol/L Normal 136-145 [facility] Comment on above: Performed By: #### C YUSRA, SANTOSH #### [address] Urea nitrogen [Mass/volume] in Serum or PlasmaOrdered By: Juneharini Génesismariza on 02-17-2024 Urea nitrogen [Mass/Vol] 8 mg/dL Normal 7-25 [facility] Comment on above: Performed By: #### C YUSRA, SANTOSH #### [address] Aerobic Cultureon 02-16-2024 Aerobic Culture Light Normal Respira tory [place] 2 Days Gram Stain Result 3+ White Blood Cells 1+ Epithelial Cells 2+ Gram Positive Cocci 1+ Yeast Like Elements PERFORMED BY: [place] [address] PATHOLOGIST [employer] JORGE MURRELL M.D. Normal [facility] Comment on above: Performed By: #### A ERC #### [address] Basic Metabolic Panelon 01-27 Anion gap [Moles/Vol] 9.6 mmol/L Normal 6.0-15.0 [facility] Comment on above: Performed By: #### L ANGEL REES #### [address] Calcium [Mass/Vol] 8.5 mg/dL Low 8.6-10.3 [facility] Comment on above: Performed By: #### L ANGEL REES #### [address] Chloride [Moles/Vol] 103 mmol/L Normal 98-107 [facility] Comment on above: Performed By: #### L ANGEL REES #### [place] [address] [place] CO2 [Moles/Vol] 27.3 mmol/L Normal 21.0-31.0 [facility] Comment on above: Performed By: #### L ANGEL REES #### [address] Creatinine [Mass/Vol] 0.92 mg/dL Normal 0.60-1.20 [facility] Comment on above: Performed By: #### L ANGEL REES #### [address] Creatinine Clr Calc Pharmacy 47.75 Normal [facility] Comment on above: Result Comment: PERF ORMED BY: [place] [address] PATHOLOGIST CH[employer] JORGE MURRELL M.D. Performed By: #### L ANGEL REES #### [address] GFR/1.73 sq M.predicted MDRD (S/P/Bld) [Vol rate/Area] mL/min/{1.73_m2} Normal [facility] Comment on above: Performed By: #### L ANGEL REES #### [address] Glucose [Mass/Vol] 83 mg/dL Normal 70-100 [facility] Comment on above: Result Comment: [place] Glucose Reference Range is dependent on time and content of last meal. Glucose of more than 200 mg/dL in a nonstressed, ambulatory subject supports the diagnosis of Diabetes Mellitus. ADA recommended reference range Performed By: #### L ANGEL REES #### [address] Potassium [Moles/Vol] 3.9 mmol/L Normal 3.5-5.1 [facility] Comment on above: Performed By: #### L ANGEL REES #### [place] [address] [place] Sodium [Moles/Vol] 136 mmol/L Normal 136-145 [facility] Comment on above: Performed By: #### L ANGEL REES #### [address] Urea nitrogen [Mass/Vol] 9 mg/dL Normal 7-25 [facility] Comment on above: Performed By: #### L ANGEL REES #### [address] Gram stain for investigation of transfusion reactionOrdered By: Lucho Grullon on 02-16-2024 Microscopic observation Gram stain Nom (Unsp spec) 1 Day [facility] Hemogram CBC Without Diffon 02-16-2024 Erythrocyte distribution width (RBC) [Ratio] 18.3 % High 11.9-15.3 [facility] Comment on above: Performed By: #### L ANGEL REES #### [address] Hematocrit (Bld) [Volume fraction] 33.8 % Low 34.0-46.4 [facility] Comment on above: Performed By: #### L ANGEL REES #### [address] Hemoglobin (Bld) [Mass/Vol] 10.6 g/dL Low 11.8-15.4 [facility] Comment on above: Performed By: #### L ANGEL REES #### [address] MCH (RBC) [Entitic mass] 24.1 pg Low 24.7-34.3 [facility] Comment on above: Performed By: #### L ANGEL REES #### [address] MCV (RBC) [Entitic vol] 76.8 fL Low 80-100 [facility] Comment on above: Performed By: #### L ANGEL REES #### [address] Mean Corpuscular HGB Conc 31.4 g/dL Low 32.0-35.0 [facility] Comment on above: Performed By: #### L ANGEL REES #### [address] Platelet mean volume (Bld) [Entitic vol] 7.1 fL Normal 6.3-10.7 [facility] Comment on above: Result Comment: PERF ORMED BY: [place] [address] PATHOLOGIST CH[employer] JORGE MURRELL M.D. Performed By: #### L ANGEL REES #### [address] Platelets (Bld) [#/Vol] 373 10*3/uL Normal 150-450 [facility] Comment on above: Performed By: #### L ANGEL REES #### [address] RBC (Bld) [#/Vol] 4.41 10*6/uL Normal 3.60-5.00 [facility] Comment on above: Performed By: #### L ANGEL REES #### [address] WBC (Bld) [#/Vol] 11.1 10*3/uL Normal 3.8-11.6 [facility] Comment on above: Performed By: #### L ANGEL REES #### [address] Basic Metabolic Panelon 04-2 0-2023 Anion gap [Moles/Vol] 9.8 mmol/L Normal 6.0-15.0 [facility] Comment on above: Performed By: #### C BCNO, BMP, MG ####[address] Calcium [Mass/Vol] 8.4 mg/dL Low 8.6-10.3 [facility] Comment on above: Performed By: #### C BCNO, BMP, MG ####[address] Chloride [Moles/Vol] 103 mmol/L Normal 98-107 [facility] Comment on above: Performed By: #### C BCNO, BMP, MG ####[place] [address] CO2 [Moles/Vol] 28.7 mmol/L Normal 21.0-31.0 [facility] Comment on above: Performed By: #### C BCNO, BMP, MG ####[place] [address] Creatinine [Mass/Vol] 1.16 mg/dL Normal 0.60-1.20 [facility] Comment on above: Performed By: #### C BCNO, BMP, MG ####[place] [address] Creatinine Clr Calc Pharmacy 37.75 Normal [facility] Comment on above: Performed By: #### C BCNO, BMP, MG ####[place] [address] GFR/1.73 sq M.predicted MDRD (S/P/Bld) [Vol rate/Area] 48.257 mL/min/{1.73_m2} Normal [facility] Comment on above: Performed By: #### C BCNO, BMP, MG ####[address] Glucose [Mass/Vol] 79 mg/dL Normal 70-100 [facility] Comment on above: Result Comment: [place] Glucose Reference Range is dependent on time and content of last meal. Glucose of more than 200 mg/dL in a nonstressed, ambulatory subject supports the diagnosis of Diabetes Mellitus. ADA recommended reference range Performed By: #### C BCNO, BMP, MG ####[place] [address] Potassium [Moles/Vol] 3.5 mmol/L Normal 3.5-5.1 [facility] Comment on above: Performed By: #### C BCNO, BMP, MG ####[place] [address] Sodium [Moles/Vol] 138 mmol/L Normal 136-145 [facility] Comment on above: Performed By: #### C BCNO, BMP, MG ####[address] Urea nitrogen [Mass/Vol] 14 mg/dL Normal 7-25 [facility] Comment on above: Performed By: #### C BCNO, BMP, MG ####[place] [id number] [facility] Clostridioides difficile tox in B tcdB gene [Presence] in Stool by ELIZABETH with probe deteOrdered By: Lucho Grullon on 02-15-2024 C. difficile toxin B tcdB gene ELIZABETH+probe Ql (Stl) Negative Negative [facility] Comment on above: Testing performed by RT-PCR Clostridium Difficileon 01-27 Clostridium Difficile Negative Normal Negative [facility] Comment on above: Order Comment: > or = to 3 loose/watery stools in the last 24 HRS? Y Is patient on promotility agents or tube feeding? N Result Comment: Test ing performed by RT-PCR PERFORMED BY: [facility] [address] [place] [address] PATHOLOGIST CH[employer]IAN [employer]ER OJRGE MURRELL M.D. Performed By: #### C DT, LACTO SWBC ####[address] Hemogram CBC Without Diffon 02-15-2024 Erythrocyte distribution width (RBC) [Ratio] 18.2 % High 11.9-15.3 [facility] Comment on above: Performed By: #### C BCNO, BMP, MG ####[place] [id number] [facility] Hematocrit (Bld) [Volume fraction] 34.6 % Normal 34.0-46.4 [facility] Comment on above: Performed By: #### C BCNO, BMP, MG ####[place] [id number] [facility] Hemoglobin (Bld) [Mass/Vol] 10.9 g/dL Low 11.8-15.4 [facility] Comment on above: Performed By: #### C BCNO, BMP, MG ####[place] [address] MCH (RBC) [Entitic mass] 24.2 pg Low 24.7-34.3 [facility] Comment on above: Performed By: #### C BCNO, BMP, MG ####[address] MCV (RBC) [Entitic vol] 77.1 fL Low 80-100 [facility] Comment on above: Performed By: #### C BCNO, BMP, MG ####[address] Mean Corpuscular HGB Conc 31.4 g/dL Low 32.0-35.0 [facility] Comment on above: Performed By: #### C BCNO, BMP, MG ####[address] Platelet mean volume (Bld) [Entitic vol] 7.0 fL Normal 6.3-10.7 [facility] Comment on above: Result Comment: PERF ORMED BY: [facility] [address] [place] [address] PATHOLOGIST CH[employer] JORGE MURRELL M.D. Performed By: #### C BCNO, BMP, MG ####[address] Platelets (Bld) [#/Vol] 333 10*3/uL Normal 150-450 [facility] Comment on above: Performed By: #### C BCNO, BMP, MG ####[address] RBC (Bld) [#/Vol] 4.48 10*6/uL Normal 3.60-5.00 [facility] Comment on above: Performed By: #### C BCNO, BMP, MG ####[address] WBC (Bld) [#/Vol] 10.0 10*3/uL Normal 3.8-11.6 [facility] Comment on above: Performed By: #### C BCNO, BMP, MG ####[place] [address] [place] [id number] [facility] Lactoferrin, Stool WBCon Lactoferrin, Stool WBC LACTOFERRIN Positive for Fecal Lactoferrin Review patient history for chronic inflammatory conditions and status which can cause positive results unrelated to acute infectious disease. -- Reference range = Negative PERFORMED BY: [facility] [address] [place] [address] PATHOLOGIST CH[employer] JORGE MURRELL M.D. Normal [facility] Comment on above: Performed By: #### C DT, LACTO SWBC ####[place] [id number] [facility] Magnesium [Mass/volume] in S kaveh or PlasmaOrdered By: Lucho Grullon on 02-15-2024 Magnesium [Mass/Vol] 1.5 mg/dL Low 1.9-2.7 [facility] Comment on above: Result Comment: PERF ORMED BY: [facility] [address] [place] [address] PATHOLOGIST CH[employer]ER JORGE MURRELL M.D. Performed By: #### C BCNO, BMP, MG ####[place] [id number] [facility] Stool Cultureon 02-15-2024 Stool culture Negative for Shiga T oxin 1 Negative for Shiga Toxin 2 -- A negative Shiga Toxin result may occur if the antigen level in the specimen is below the detection limit of the assay. Stool culture results No Salmonella, Shigella, Campy or E. coli 0157:H7 Isolated PERFORMED BY: [place] [address] PATHOLOGIST CH[employer]ER JORGE MURRELL M.D. Normal [facility] Comment on above: Performed By: #### C USTOOL #### [address] Stool bacteria identificatio n by cultureOrdered By: Lucho Grullon on 02-15-2024 Bacteria identified Cx Nom (Stl) [facility] Stool lactoferrin detectionO rdered By: Lucho Grullon on 02-15-2024 Lactoferrin Ql (Stl) [facility] US venous duplex LE RTon US venous duplex LE RT [facility] [address] [place] [address] Ultrasound Report Signed Patient: Gera Perdue MR#: [id number] : 1945 Acct:[id number] Age/Sex: 78 / F ADM Date: 02/14/24 Loc: Room: [address] [place] [address] Type: ADM IN Attending Dr: Lucho Grullon MD Ordering Provider: CHIP Greenwood Date of Service: 02/14/24 US/US venous duplex LE RT: calf pain and swelling Copies to: CHIP Greenwood MD RIGHT LOWER EXTREMITY VENOUS DUPLEX INDICATION: Leg edema, pain and tenderness. Venous duplex history: Negative study for DVT in July 2023. Unilateral right lower extremity venous duplex Doppler study was obtained utilizing B-mode, color- flow and spectral Doppler. FINDINGS: The right common femoral, femoral, and popliteal veins showed adequate compressibility, color-flow and augmentation. The right posterior tibial and peroneal veins were compressible, as well as proximal greater saphenous vein. The contralateral left common femoral vein was compressible with color-flow and augmentation. US/US venous duplex LE RT IMPRESSION: NO EVIDENCE OF DEEP VENOUS THROMBOSIS IN THE RIGHT LOWER EXTREMITY. NO SUPERFICIAL THROMBOPHLEBITIS WAS NOTED. Impression dictated by: Hilario Angulo MD02/15/2024 11:55 AM Dictation Location: [place] [address] Tech: Elizabeth Garcia Transcribed By: ANA 02/15/24 1155 Dictated By: Hilario Angulo MD 02/15/24 115 Signed By: 02/15/24 1155 Normal [facility] Alanine aminotransferase [En zymatic activity/volume] in Serum or PlasmaOrdered By: Kadie Jones on 02-14-2024 ALT [Catalytic activity/Vol] 5 U/L Low 7-52 [facility] Comment on above: Performed By: #### H S TROP, SCAN CBC, CMP, MG, NORMA, LIPASE ####[facility] [id number] [place] [id number] [facility] Albumin [Mass/volume] in Ser um or Plasma by Bromocresol green (BCG) dye binding methoOrdered By: Kadie Jones on 02-14-2024 Albumin BCG dye [Mass/Vol] 3.7 g/dL 3.5-5.7 [facility] Alkaline phosphatase [Enzyma tic activity/volume] in Serum or PlasmaOrdered By: Kadie Jones on 02-14-2024 ALP [Catalytic activity/Vol] 75 U/L Normal 34-104 [facility] Comment on above: Performed By: #### H S TROP, SCAN CBC, CMP, MG, NORMA, LIPASE ####[facility] [id number] [place] [id number] [place] Amylase [Enzymatic activity/ volume] in Serum or PlasmaOrdered By: Kadie Jones on 02-14-2024 Amylase [Catalytic activity/Vol] 10 U/L Low 29-103 [facility] Comment on above: Performed By: #### H S TROP, SCAN CBC, CMP, MG, NORMA, LIPASE ####[facility] [id number] [place] [id number] [facility] Aspartate aminotransferase [ Enzymatic activity/volume] in Serum or PlasmaOrdered By: Kadie Jones on 02-14-2024 AST [Catalytic activity/Vol] 11 U/L Low 13-39 [facility] Comment on above: Performed By: #### H S TROP, SCAN CBC, CMP, MG, NORMA, LIPASE ####[address] Automated basophil %Ordered By: Kadie Bullimore on 02-14-2024 Basophils/100 WBC (Bld) 0.9 % Normal . [facility] Comment on above: Performed By: #### H S TROP, SCAN CBC, CMP, MG, NORMA, LIPASE ####[address] Automated basophil countOrde red By: Kadie Bullimore on 02-14-2024 Basophils (Bld) [#/Vol] 0.1 10*3/uL Normal 0.0-0.2 [facility] Comment on above: Result Comment: PERF ORMED BY: [facility] [address] [facility] [place] [address] PATHOLOGIST [employer] JORGE MURRELL M.D. Performed By: #### H S TROP, SCAN CBC, CMP, MG, NORMA, LIPASE ####[address] Automated blood monocyte cou ntOrdered By: Kadie Bullimore on 02-14-2024 Monocytes (Bld) [#/Vol] 1.7 10*3/uL High 0.0-0.8 [facility] Comment on above: Performed By: #### H S TROP, SCAN CBC, CMP, MG, NORMA, LIPASE ####[address] Automated eosinophil %Ordere d By: Kadie Bullimore on 02-14-2024 Eosinophils/100 WBC (Bld) 0.4 % Normal . [facility] Comment on above: Performed By: #### H S TROP, SCAN CBC, CMP, MG, NORMA, LIPASE ####[address] Automated eosinophil countOr dered By: Kdaie Bullimore on 02-14-2024 Eosinophils (Bld) [#/Vol] 0.0 10*3/uL Normal 0.0-0.45 [facility] Comment on above: Performed By: #### H S TROP, SCAN CBC, CMP, MG, NORMA, LIPASE ####[place] [address] Automated erythrocytes count in urine sediment (number/area)Ordered By: Kadie Jones on 02-14-2024 RBC Auto (Urine sed) [#/Area] 0-1 [HPF] 0-4 [facility] Automated leukocytes count i n urine sediment (number/area)Ordered By: Kadie Hustonore on 02-14-2024 WBC Auto (Urine sed) [#/Area] 50-100 [HPF] 0-4 [facility] Automated monocyte %Ordered By: Kadieruslan Hunglamonte on 02-14-2024 Monocytes/100 WBC (Bld) 12.3 % Normal . [facility] Comment on above: Performed By: #### H S TROP, SCAN CBC, CMP, MG, NORMA, LIPASE ####[place] [address] [address] Automated neutrophil %Ordere d By: Kadieruslan Jones on 02-14-2024 Neutrophils/100 WBC (Bld) 62.7 % Normal . [facility] Comment on above: Performed By: #### H S TROP, SCAN CBC, CMP, MG, NORMA, LIPASE ####[place] [address] [address] Automated urine color determ inationOrdered By: Kadie Jones on 02-14-2024 Color (U) Dark yellow Critically abnormal Yellow [facility] Comment on above: Order Comment: Name Collection Type:: Straight Catheter Performed By: #### L ACTIC, CUBLD #### [facility] [address] BNP ser/plasOrdered By: Bianca Jones on 02-14-2024 Natriuretic peptide B (Bld) [Mass/Vol] 29.0 pg/mL Normal 5-100 [facility] Comment on above: Result Comment: PERF ORMED BY: [facility] [address] [facility] [place] [address] PATHOLOGIST [employer] JORGE MURRELL M.D. Performed By: #### B GRAVURE PRESS SET UP OPERATOR ####[address] Bilirubin Test strip Ql (U)O rdered By: Kadie Jones on 02-14-2024 Bilirubin Ql (U) Negative Negative [facility] Bilirubin.total [Mass/volume ] in Serum or PlasmaOrdered By: Kadie Hustonore on 02-14-2024 Bilirubin [Mass/Vol] 0.5 mg/dL Normal 0.3-1.0 [facility] Comment on above: Performed By: #### H S TROP, SCAN CBC, CMP, MG, NORMA, LIPASE ####[address] Blood Cultureon 02-14-2024 Bacteria identified Cx Nom (Bld) NO GROWTH 5 DAYS PERFORMED BY: [place] [address] PATHOLOGIST [employer] JORGE MURRELL M.D. Normal [facility] Comment on above: Performed By: #### C UBLD, LACTIC ####[address] Bacteria identified Cx Nom (Bld) NO GROWTH 5 DAYS PERFORMED BY: [place] [address] PATHOLOGIST [employer] JORGE MURRELL M.D. Normal [facility] Comment on above: Performed By: #### C UBLD, LACTIC ####[address] COVID CepheidOrdered By: Abbi Jones on 02-14-2024 SARS-CoV-2 (COVID-19) Ab IA Ql Negative Negative [facility] Comment on above: This is a duplicate Cepheid Xpert Xpress CoV-2/Flu/RSV Plus RNA by RT-PCR result to be used for statistical tracking purpose only. SARS-CoV-2 (COVID-19) RNA ELIZABETH+probe Ql (Unsp spec) [facility] COVID-19 / Flu A/B / RSV PCR on 02-14-2024 SARS-CoV-2 (COVID-19) RNA ELIZABETH+probe Ql (Unsp spec) COVID-19 Cepheid Result Negative for SARS-CoV-2 RNA by RT-PCR Flu A Cepheid Result Negative for Flu A RNA by RT-PCR Flu B Cepheid Result Negative for Flu B RNA by RT-PCR RSV Cepheid Result Negative for RSV RNA by RT-PCR COVID19 Blank Space -- Reference: Negative COVID19 Blank Space -- Cepheid Disclaimer The Cepheid Xpert Xpress CoV-2/Flu/RSV Plus has Cepheid Disclaimer not been FDA cleared or approved; this test has Cepheid Disclaimer been authorized by FDA under an EUA for use by Cepheid Disclaimer authorized laboratories; this test has been Cepheid Disclaimer authorized only for the simultaneous qualitative Cepheid Disclaimer detection and differentiation of nucleic acids from Cepheid Disclaimer SARS-CoV-2, influenza A, influenza B, and Cepheid Disclaimer respiratory syncytial virus (RSV), and not for any Cepheid Disclaimer other viruses or pathogens; and this test is only Cepheid Disclaimer authorized for the duration of the declaration that Cepheid Disclaimer circumstances exist justifying the authorization of Cepheid Disclaimer emergency use of in vitro diagnostic tests for Cepheid Disclaimer detection and/or diagnosis of COVID-19 under Cepheid Disclaimer Section 564(b)(1) of the Act, 21 U.S.C. 360bbb- Cepheid Disclaimer 3(b)(1), unless the authorization is terminated or Cepheid Disclaimer revoked sooner. PERFORMED BY: [facility] [place] [address] PATHOLOGIST [employer] JROGE MURRELL M.D. Normal [facility] Comment on above: Performed By: #### A ERC #### [facility] [address] [place] [id number] [facility] CT abdomen pelvis w conon CT abdomen pelvis w con [facility] [address] [place] [address] CT Scan Report Signed Patient: Gera Perdue MR#: [id number] : 1945 Acct:[id number] Age/Sex: 78 / F ADM Date: 02/14/24 Loc: ER Room: Type: [facility] ER Attending Dr: Copies to: CHIP Greenwood Ordering Provider: CHIP Greenwood Date of Service: 02/14/24 CT/CT abdomen pelvis w con: n/v/d abd pain CT abdomen pelvis w con 02/14/2024 12:47 PM SIGNS AND SYMPTOMS: n/v/d abd pain TECHNIQUE: Multidetector ct axial images of the abdomen and pelvis were obtained with IV contrast. Multiplanar reformats were performed and reviewed to further define anatomy and possible pathology. CT was performed with one or more of the following dose reduction techniques: Automated exposure control, adjustment of the mA and/or kV according to patient size, or use of iterative reconstruction technique. COMPARISON: 08/17/2023 FINDINGS: Lower Chest: Atherosclerotic changes are noted in the thoracic aorta and coronary arteries. There is dependent opacity in the right lower lobe. ABDOMEN: Liver: Within normal limits. Bile Ducts: Normal caliber. Gallbladder: Gallbladder is not well visualized and may have been previously removed. Pancreas: Within normal limits. Spleen: Within normal limits. Adrenals: Within normal limits. Kidneys: There is left-sided renal cortical atrophy. 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 Tiny 1 to 2 mm nonobstructing renal calculi are noted on the left similar to the prior exam without hydronephrosis. Pelvis: Reproductive Organs: No pelvic masses. Ureters: Within normal limits. Bladder: There is dependent gas within the bladder lumen. This may be secondary to recent catheterization or cystitis secondary to a gas-forming organism. Bowel: Postsurgical changes are noted at the rectosigmoid junction consistent with previous partial colectomy. 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 There is wall thickening with accompanying fat stranding in the transverse colon, descending colon, and sigmoid colon suggesting colitis which may be infectious or inflammatory. There is a duodenal diverticulum. Mesenteric Lymph Nodes: No enlarged mesenteric lymph nodes. Peritoneum: No ascites or free air, no fluid collection. Vessels: Atherosclerotic changes are noted in the abdominal aorta and its branches. Retroperitoneum: Within normal limits. Abdominal Wall: There is a hernia in the left lower abdominal wall similar to the prior exam with the ostium measuring 6.9 cm in greatest transverse dimension and the hernia sac measuring 10.8 cm in greatest transverse dimension. Bones: Degenerative changes are noted in the thoracolumbar spine. Degenerative changes are noted in the hips and sacroiliac joints. Postoperative changes are noted in the left hip. CT/CT abdomen pelvis w con IMPRESSION: There is dependent gas within the bladder lumen. This may be secondary to recent catheterization or cystitis secondary to a gas-forming organism. There is wall thickening with accompanying fat stranding in the transverse colon, descending colon, and sigmoid colon suggesting colitis which may be infectious or inflammatory. Additional chronic findings are noted, as above. Impression dictated by: Bhavesh Avendaño M.D.02/14/2024 2:21 PM Dictation Location: [place] [address] Transcribed By: [facility] 02/14/24 1421 Dictated By: Bhavesh Avendaño II, MD 02/14/24 1411 Signed By: 02/14/24 1421 Normal [facility] Calcium [Mass/volume] in Ser um or PlasmaOrdered By: Kadie Jones on 02-14-2024 Calcium [Mass/Vol] 9.5 mg/dL Normal 8.6-10.3 [facility] Comment on above: Performed By: #### H S TROP, SCAN CBC, CMP, MG, NORMA, LIPASE ####[id number] [place] [id number] [facility] Carbon dioxide, total [Moles /volume] in Serum or PlasmaOrdered By: Kadie Jones on 02-14-2024 CO2 [Moles/Vol] 30.8 mmol/L Normal 21.0-31.0 [facility] Comment on above: Performed By: #### H S TROP, SCAN CBC, CMP, MG, NORMA, LIPASE ####[place] [address] [address] Cepheid COVID PCR Negativeon 02-14-2024 SARS-CoV-2 (COVID-19) RNA ELIZABETH+probe Ql (Unsp spec) Negative Normal Negative [facility] Comment on above: Result Comment: This is a duplicate Cepheid Xpert Xpress CoV-2/Flu/RSV Plus RNA by RT-PCR result to be used for statistical tracking purpose only. PERFORMED BY: [place] [address] PATHOLOGIST [employer] JORGE MURRELL M.D. Performed By: #### A ERC #### [address] Chloride [Moles/volume] in S kaveh or PlasmaOrdered By: Kadie Jones on 02-14-2024 Chloride [Moles/Vol] 97 mmol/L Low 98-107 [facility] Comment on above: Performed By: #### H S TROP, SCAN CBC, CMP, MG, NORMA, LIPASE ####[place] [address] [address] Comprehensive Metabolic Pane harsha 02-14-2024 Albumin [Mass/Vol] 3.7 g/dL Normal 3.5-5.7 [facility] Comment on above: Performed By: #### H S TROP, SCAN CBC, CMP, MG, NORMA, LIPASE ####[place] [address] Creatinine Clr Calc Pharmacy 32.86 Normal [facility] Comment on above: Performed By: #### H S TROP, SCAN CBC, CMP, MG, NORMA, LIPASE ####[place] [address] [address] GFR/1.73 sq M.predicted MDRD (S/P/Bld) [Vol rate/Area] 41.325 mL/min/{1.73_m2} Normal [facility] Comment on above: Performed By: #### H S TROP, SCAN CBC, CMP, MG, NORMA, LIPASE ####[facility] Creatinine [Mass/volume] in Serum or PlasmaOrdered By: Kadie Jones on 02-14-2024 Creatinine [Mass/Vol] 1.32 mg/dL High 0.60-1.20 [facility] Comment on above: Performed By: #### H S TROP, SCAN CBC, CMP, MG, NORMA, LIPASE ####[place] [address] [place] [id number] [facility] Dipstick and Microscopicon 0 02-14-2024 Appearance (U) Clear Normal Clear [facility] Comment on above: Order Comment: Name Collection Type:: Straight Catheter Performed By: #### L ACTIC, CUBLD #### [facility] 1[address] [place] [address] [place] Bacteria,Urine 4+ High None Seen [facility] Comment on above: Order Comment: Name Collection Type:: Straight Catheter Performed By: #### L ACTIC, CUBLD #### [facility] [address] [place] [address] [place] Bilirubin,Urine Negative Normal Negative [facility] Comment on above: Order Comment: Name Collection Type:: Straight Catheter Performed By: #### L ACTIC, CUBLD #### [facility] [address] Glucose Ql (U) Normal Normal Normal [facility] Comment on above: Order Comment: Name Collection Type:: Straight Catheter Performed By: #### L ACTIC, CUBLD #### [facility] [address] [place] [address] [place] Hyaline Casts,Urine 9-19 High 0-8 [facility] Comment on above: Order Comment: Name Collection Type:: Straight Catheter Result Comment: PERF ORMED BY: [place] [address] PATHOLOGIST [employer] JORGE MURRELL M.D. Performed By: #### L ACTIC, CUBLD #### [address] Ketones Ql (U) Trace High Negative [facility] Comment on above: Order Comment: Name Collection Type:: Straight Catheter Performed By: #### L ACTIC, CUBLD #### [address] Leukocyte esterase Test strip Ql (U) 3+ High Negative [facility] Comment on above: Order Comment: Name Collection Type:: Straight Catheter Performed By: #### L ACTIC, CUBLD #### [address] Nitrite,Urine Positive High Negative [facility] Comment on above: Order Comment: Name Collection Type:: Straight Catheter Performed By: #### L ACTSHARON, CUBLD #### [address] Occult Blood,Urine Trace High Negative [facility] Comment on above: Order Comment: Name Collection Type:: Straight Catheter Result Comment: PERF ORMED BY: [place] [address] PATHOLOGIST [employer] JORGE MURRELL M.D. Performed By: #### L ACTANGEL HERRERA #### [address] RBC LM.HPF (Urine sed) [#/Area] 0 /[HPF] Normal 0-4 [facility] Comment on above: Order Comment: Name Collection Type:: Straight Catheter Performed By: #### L ACTDOC HERRERALD #### [address] Specificy [place],Urine 1.024 Normal 1.001-1.03 0 [facility] Comment on above: Order Comment: Name Collection Type:: Straight Catheter Performed By: #### L ACTSHARON, CUBLD #### [address] Squamous Epithelial Cell,Urine None Seen Normal 0-2 [facility] Comment on above: Order Comment: Name Collection Type:: Straight Catheter Performed By: #### L ACTDOC HERRERALD #### [facility] [address] Urobilinogen,Urine Normal Normal Normal [facility] Comment on above: Order Comment: Name Collection Type:: Straight Catheter Performed By: #### L DOC REESLD #### [facility] [address] [place] [id number] [facility] WBC,Urine 50-100 High 0-4 [facility] Comment on above: Order Comment: Name Collection Type:: Straight Catheter Performed By: #### L DOC REESLD #### [facility] [address] ECG 12 lead ECGon 02-14-2024 ECG 12 lead ECG [facility] [address] [place] [address] Electrocardiograph Report Signed Patient: Gera Perdue MR#: [id number] : 1945 Acct:[id number] Age/Sex: 78 / F ADM Date: 02/14/24 Loc: ER Room: Type: [facility] ER Attending Dr: Ordering Provider: CHIP Greenwood Date of Service: 02/14/24 ECG/ECG 12 lead ECG: Nausea/Vomiting/Diarrhea Copies to: Test Reason : Blood Pressure : 148/072 mmHG Vent. Rate : 099 BPM Atrial Rate : 099 BPM P-R Int : 142 ms QRS Dur : 070 ms QT Int : 344 ms P-R-T Axes : 083 059 071 degrees QTc Int : 441 ms Normal sinus rhythm Normal ECG When compared with ECG of 17-AUG-2023 16:05, No significant change was found Confirmed by MARSHALL DOMINGUEZ DO ([id number]) on 02/14/2024 3:23:36 PM Referred By: Electronically Signed By:MARSHALL DOMINGUEZ DO Transcribed By: MUS Signed By Marshall Dominguez DO 02/13 1523 Normal [facility] Erythrocyte distribution wid th [Ratio] by Automated countOrdered By: Kadie Jones on 02-14-2024 Erythrocyte distribution width (RBC) [Ratio] 18.4 % High 11.9-15.3 [facility] Comment on above: Performed By: #### H S TROP, SCAN CBC, CMP, MG, NORMA, LIPASE ####[place] [address] [address] Erythrocytes [#/volume] in B lood by Automated countOrdered By: Kadie Jones on 02-14-2024 RBC (Bld) [#/Vol] 5.04 10*6/uL High 3.60-5.00 [facility] Comment on above: Performed By: #### H S TROP, SCAN CBC, CMP, MG, NORMA, LIPASE ####[place] [address] [place] [id number] [facility] Glucose [Mass/volume] in Ser um or PlasmaOrdered By: Kadie Jones on 02-14-2024 Glucose [Mass/Vol] 85 mg/dL Normal 70-100 [facility] Comment on above: ADA recommended refe rence rangeRandom Glucose Reference Range is dependent on time and content of last meal. Glucose of more than 200 mg/dL in a nonstressed, ambulatory subject supports the diagnosis of Diabetes Mellitus. Result Comment: [place] om Glucose Reference Range is dependent on time and content of last meal. Glucose of more than 200 mg/dL in a nonstressed, ambulatory subject supports the diagnosis of Diabetes Mellitus. ADA recommended reference range Performed By: #### H S TROP, SCAN CBC, CMP, MG, NORMA, LIPASE ####[place] [address] [place] [id number] [facility] Hematocrit [Volume Fraction] of Blood by Automated countOrdered By: Kadie Jones on 02-14-2024 Hematocrit (Bld) [Volume fraction] 38.5 % Normal 34.0-46.4 [facility] Comment on above: Performed By: #### H S TROP, SCAN CBC, CMP, MG, NORMA, LIPASE ####[place] [address] [place] [id number] [facility] Hemoglobin [Mass/volume] in BloodOrdered By: Kadie Jones on 02-14-2024 Hemoglobin (Bld) [Mass/Vol] 12.2 g/dL Normal 11.8-15.4 [facility] Comment on above: Performed By: #### H S TROP, SCAN CBC, CMP, MG, NORMA, LIPASE ####[place] [address] [address] Ketones Auto test strip (U) [Mass/Vol]Ordered By: Kadie Jones on 02-14-2024 Ketones (U) [Mass/Vol] Trace Negative [facility] - UrinalysisOrder ed By: Kadie Jones on 02-14-2024 Hyaline casts LM Ql (Urine sed) 9 [LPF] 0-8 [facility] Lactate [Moles/volume] in Se rum or PlasmaOrdered By: Kadie Jones on 02-14-2024 Lactate [Moles/Vol] 0.8 mmol/L Normal 0.5-2.2 [facility] Comment on above: Result Comment: PERF ORMED BY: [facility] [address] [place] [address] PATHOLOGIST [employer] JORGE MURRELL M.D. Performed By: #### C UBLD, LACTIC ####[address] Leukocytes [#/volume] correc juma for nucleated erythrocytes in Blood by Automated counOrdered By: Kadie Jones on 02-14-2024 WBC corrected for nucl RBC Auto (Bld) [#/Vol] 13.6 10*3/uL 3.8-11.6 [facility] Leukocytes [#/volume] in Blo od by Automated countOrdered By: Kadie Jones on 02-14-2024 WBC (Bld) [#/Vol] 13.6 10*3/uL High 3.8-11.6 [facility] Comment on above: Performed By: #### H S TROP, SCAN CBC, CMP, MG, NORMA, LIPASE ####[place] [address] [address] Lipase [Enzymatic activity/v olume] in Serum or PlasmaOrdered By: Kadie Jones on 02-14-2024 Lipase [Catalytic activity/Vol] 6.0 U/L Low 11.0-82.0 [facility] Comment on above: Result Comment: PERF ORMED BY: [facility] [address] [place] [address] PATHOLOGIST [employer] JORGE MURRELL M.D. Performed By: #### H S TROP, SCAN CBC, CMP, MG, NORMA, LIPASE ####[place] [address] [address] Lymphocytes [#/volume] in Bl ood by Automated countOrdered By: Kadie Bullimore on 02-14-2024 Lymphocytes (Bld) [#/Vol] 3.2 10*3/uL Normal 1.00-4.8 [facility] Comment on above: Performed By: #### H S TROP, SCAN CBC, CMP, MG, NORMA, LIPASE ####[place] [address] [address] Lymphocytes/100 leukocytes i n Blood by Automated countOrdered By: Kadie Bullimore on 02-14-2024 Lymphocytes/100 WBC (Bld) 23.7 % Normal . [facility] Comment on above: Performed By: #### H S TROP, SCAN CBC, CMP, MG, NORMA, LIPASE ####[address] MCH [Entitic mass] by Automa juma countOrdered By: Kadie Hungimtulio on 02-14-2024 MCH (RBC) [Entitic mass] 24.3 pg Low 24.7-34.3 [facility] Comment on above: Performed By: #### H S TROP, SCAN CBC, CMP, MG, NORMA, LIPASE ####[place] [id number] [facility] MCHC Auto (RBC) [Mass/Vol]Or dered By: Kadie Bullimore on 02-14-2024 MCHC (RBC) [Mass/Vol] 31.8 g/dL 32.0-35.0 [facility] MCV [Entitic volume] by Auto mated countOrdered By: Kadie Bullimore on 02-14-2024 MCV (RBC) [Entitic vol] 76.4 fL Low 80-100 [facility] Comment on above: Performed By: #### H S TROP, SCAN CBC, CMP, MG, NORMA, LIPASE ####[address] Magnesium [Mass/volume] in S kaveh or PlasmaOrdered By: Kadie Jones on 02-14-2024 Magnesium [Mass/Vol] 1.1 mg/dL Low 1.9-2.7 [facility] Comment on above: Performed By: #### H S TROP, SCAN CBC, CMP, MG, NORMA, LIPASE ####[address] Monocyte distribution width [Entitic volume] in Blood by AutomatedOrdered By: Kadie Jones on 02-14-2024 Monocyte distribution width Auto (Bld) [Entitic vol] 25.16 % 0.00-20.00 [facility] Comment on above: For adults in ED, MD W > 20.0 may be associated with a higher risk of sepsis during the first 12 hrs of hospital admission Neutrophils [#/volume] in Bl ood by Automated countOrdered By: Kadie Jones on 02-14-2024 Neutrophils (Bld) [#/Vol] 8.5 10*3/uL High 1.8-7.7 [facility] Comment on above: Performed By: #### H S TROP, SCAN CBC, CMP, MG, NORMA, LIPASE ####[address] Nitrite Test strip Ql (U)Ord ered By: Kadie Jones on 02-14-2024 Nitrite Ql (U) Positive Negative [facility] No Panel InformationOrdered By: Kadie Jones on 02-14-2024 Estimated GFR (CKD-EPI) 41.325 mL/Min [facility] Creatinine Clearance (Chem 32.86 [facility] Nucleated erythrocytes [Pres ence] in Blood by Automated countOrdered By: Kadie Jones on 02-14-2024 Nucleated RBC Auto Ql (Bld) 0.1 /100{WBC} 0-0.5 [facility] Platelet adequacy [Presence] in Blood by Light microscopyOrdered By: Kadie Jones on 02-14-2024 Platelets LM Ql (Bld) Normal Normal [facility] Platelet mean volume [Entiti c volume] in Blood by Automated countOrdered By: Kadie Hungimore on 02-14-2024 Platelet mean volume (Bld) [Entitic vol] 7.0 fL Normal 6.3-10.7 [facility] Comment on above: Performed By: #### H S TROP, SCAN CBC, CMP, MG, NORMA, LIPASE ####[place] [address] [place] [id number] [facility] Platelet morphology finding [Identifier] in BloodOrdered By: Kadie Bullimore on 02-14-2024 Platelet morphology finding Nom (Bld) Normal Normal [facility] Platelets [#/volume] in Bloo d by Automated countOrdered By: Kadie Hustonore on 02-14-2024 Platelets (Bld) [#/Vol] 448 10*3/uL Normal 150-450 [facility] Comment on above: Performed By: #### H S TROP, SCAN CBC, CMP, MG, NORMA, LIPASE ####[place] [address] [place] [id number] [facility] Potassium [Moles/volume] in Serum or PlasmaOrdered By: Kadie Hungimtulio on 02-14-2024 Potassium [Moles/Vol] 4.0 mmol/L Normal 3.5-5.1 [facility] Comment on above: Performed By: #### H S TROP, SCAN CBC, CMP, MG, NORMA, LIPASE ####[place] [address] [place] [id number] [facility] Protein [Mass/volume] in Ser um or PlasmaOrdered By: Kadie Bullimore on 02-14-2024 Protein [Mass/Vol] 7.9 g/dL Normal 6.4-8.9 [facility] Comment on above: Performed By: #### H S TROP, SCAN CBC, CMP, MG, NORMA, LIPASE ####[place] [address] [place] [id number] [facility] RBC morphologyOrdered By: Jeannie leger Bullimore on 02-14-2024 RBC morphology finding Nom (Bld) Normal Normal Normal [facility] Comment on above: Performed By: #### H S TROP, SCAN CBC, CMP, MG, NORMA, LIPASE ####[address] Scan and CBCon 02-14-2024 Mean Corpuscular HGB Conc 31.8 g/dL Low 32.0-35.0 [facility] Comment on above: Performed By: #### H S TROP, SCAN CBC, CMP, MG, NORMA, LIPASE ####[address] Monocytes/100 WBC (Bld) 25.16 % High 0.00-20.00 [facility] Comment on above: Result Comment: For adults in ED, MDW > 20.0 may be associated with a higher risk of sepsis during the first 12 hrs of hospital admission Performed By: #### H S TROP, SCAN CBC, CMP, MG, NORMA, LIPASE ####[address] [address] NRBC% 0.1 /100{WBC} Normal 0-0.5 [facility] Comment on above: Performed By: #### H S TROP, SCAN CBC, CMP, MG, NORMA, LIPASE ####[address] Platelet Estimate Normal Normal Normal [facility] Comment on above: Performed By: #### H S TROP, SCAN CBC, CMP, MG, NORMA, LIPASE ####[address] Platelet Morphology Normal Normal Normal [facility] Comment on above: Result Comment: PERF ORMED BY: [facility] [address] [place] [address] PATHOLOGIST CHRI[employer]IAN [employer]ER JORGE MURRELL M.D. Performed By: #### H S TROP, SCAN CBC, CMP, MG, NORMA, LIPASE ####[address] Serum globulin measurement b y calculation (mass/volume)Ordered By: Kadie Jones on 02-14-2024 Globulin (S) [Mass/Vol] 4.2 g/dL Normal [facility] Comment on above: Performed By: #### H S TROP, SCAN CBC, CMP, MG, NORMA, LIPASE ####[place] [address] [address] Serum or plasma albumin/glob ulin mass ratioOrdered By: Kadie Jones on 02-14-2024 Albumin/Globulin [Mass ratio] 0.9 {ratio} [facility] Comment on above: Performed By: #### H S TROP, SCAN CBC, CMP, MG, NORMA, LIPASE ####[place] [address] Serum or plasma anion gap de terminationOrdered By: Kadie Jones on 02-14-2024 Anion gap [Moles/Vol] 14.2 mmol/L Normal 6.0-15.0 [facility] Comment on above: Performed By: #### H S TROP, SCAN CBC, CMP, MG, NORMA, LIPASE ####[place] [address] Sodium [Moles/volume] in Ser um or PlasmaOrdered By: Kadie Jones on 02-14-2024 Sodium [Moles/Vol] 138 mmol/L Normal 136-145 [facility] Comment on above: Performed By: #### H S TROP, SCAN CBC, CMP, MG, NORMA, LIPASE ####[address] Specific gravity Auto test s trip (U) [Rel density]Ordered By: Kadie Jones on 02-14-2024 Specific gravity (U) [Rel density] 1.024 1.001-1.03 0 [facility] Squamous epithelial cells de tection in urine sediment by light microscopyOrdered By: Kadie oJnes on 02-14-2024 Epithelial cells.squamous LM Ql (Urine sed) None seen [HPF] 0-2 [facility] Troponin I High Sensitivityo n 02-14-2024 Troponin I High Sensitivity 6.5 pg/mL Normal 0.0-15.0 [facility] Comment on above: Result Comment: PERF ORMED BY: [facility] [address] [place] [id number] PATHOLOGIST CHRI[employer]IAN [employer] JORGE MURRELL M.D. Performed By: #### H S TROP, SCAN CBC, CMP, MG, NORMA, LIPASE ####[place] [id number] Troponin I.cardiac [Mass/vol ume] in Serum or Plasma by Detection limit <= 0.01 ng/Ordered By: Kadie Jones on 02-14-2024 Troponin I.cardiac DL <= 0.01 ng/mL [Mass/Vol] 6.5 pg/mL 0.0-15.0 [facility] Urea nitrogen [Mass/volume] in Serum or PlasmaOrdered By: Kadie Jones on 02-14-2024 Urea nitrogen [Mass/Vol] 18 mg/dL Normal 7-25 [facility] Comment on above: Performed By: #### H S TROP, SCAN CBC, CMP, MG, NORMA, LIPASE ####[place] [address] [place] [id number] [facility] Urine Cultureon 02-14-2024 Bacteria identified Cx Nom (U) ORGANISM: Klebsiella pneumoniae (O:KLEPNE) [place] Count >100,000 Aerobic NATALIA Charge (NMIC56) SUSCEPTIBILITY ORGANISM: O:KLEPNE ANTIBIOTIC INTERPRETATION NATALIA Amikacin S <16 Amoxacillin/K Clavulanate S <8 Ampicillin/Sulbactam S 88/4 Aztreonam S <4 Cefazolin S <2 Cefepime S <2 Ceftazidime S <1 Ceftazidime/Avibactam S <4 Ceftolozane/Tazobactam S <2 Ceftriaxone S <1 Cefuroxime S <4 Ciprofloxacin S <0.25 Ertapenem S <0.5 Gentamicin S <2 Levofloxacin S <0.5 Meropenem S <1 Meropenem/Vaborbactam S <2 Nitrofurantoin S <32 Piperacillin/Tazobactam S <8 Tetracycline R >8 Tigecycline S <2 Tobramycin S <2 Trimethoprim/Sulfamethoxaz ole S <0.5 S = SUSCEPTIBLE I = INTERMEDIATE R = RESISTANT BLANK = DATA NOT AVAILABLE, OR DRUG NOT ADVISABLE OR TESTED R* = RESISTANCE DUE TO EXTENDED SPECTRUM BETA-LACTAMASES ESBL = EXTENDED SPECTRUM BETA-LACTAMASE TFG = THYMIDINE-DEPENDENT STRAIN HALLIE = BETA-LACTAMASE POSITIVE IB = INDUCIBLE BETA-LACTAMASE. APPEARS IN PLACE OF 'S' WITH SPECIES KNOWN TO POSSESS INDUCIBLE BETA-LACTAMASES. POTENTIALLY THEY MAY BECOME RESISTANT TO ALL B-LACTAM DRUGS. PERFORMED BY: [facility] [address] [place] [address] PATHOLOGIST CHRISTIAN SCIENCE HEALER JORGE MURRELL M.D. Normal [facility] Comment on above: Performed By: #### L ANGEL REES #### [address] Urine bacteria detection by automated methodOrdered By: Kadie Jones on 02-14-2024 Bacteria Auto Ql (U) 4+ None Seen [facility] Urine clarity by refractomet ry automatedOrdered By: Kadie Jones on 02-14-2024 Clarity Refractometry automated (U) Clear Clear [facility] Urine culture routineOrdered By: Kadie Jones on 02-14-2024 Bacteria identified Cx Nom (U) Klebsiella pneumoniae [facility] Urine glucose measurement by automated test strip (mass/volume)Ordered By: Kadie Jones on 02-14-2024 Glucose Auto test strip (U) [Mass/Vol] Normal mg/dL Normal [facility] Urine hemoglobin detection b y automated test stripOrdered By: Kadie Jones on 02-14-2024 Hemoglobin Auto test strip Ql (U) Trace Negative [facility] Urine leukocyte esterase det ection by automated test stripOrdered By: Kadie Jones on 02-14-2024 Leukocyte esterase Auto test strip Ql (U) 3+ Negative [facility] Urine pH measurement by auto mated test stripOrdered By: Kadie Jones on 02-14-2024 pH (U) 5.5 [pH] Normal 5.0-9.0 [facility] Comment on above: Order Comment: Name Collection Type:: Straight Catheter Performed By: #### L ANGEL REES #### [facility] [address] [place] [address] Urine protein measurement by automated test strip (mass/volume)Ordered By: Kadie Jones on 02-14-2024 Protein (U) [Mass/Vol] 30 mg/dL High Negative Fi [facility] Comment on above: Order Comment: Name Collection Type:: Straight Catheter Performed By: #### L DOC REESLD #### [address] Urobilinogen Auto test strip (U) [Mass/Vol]Ordered By: Kadie Jones on 02-14-2024 Urobilinogen (U) [Mass/Vol] Normal mg/dL Normal [facility] XR chest 1V portableon 02-13 XR chest 1V portable [facility] [address] [place] [address] XRay Report Signed Patient: Gera Perdue MR#: [id number] : 1945 Acct:[id number] Age/Sex: 78 / F ADM Date: 02/14/24 Loc: ER Room: Type: [facility] ER Attending Dr: Copies to: CHIP Greenwood Ordering Provider: CHIP Greenwood Date of Service: 02/14/24 XR/XR chest 1V portable: Nausea/Vomiting/Diarrhea XR chest 1V portable 02/14/2024 11:41 AM SIGNS AND SYMPTOMS: Nausea, vomiting, and diarrhea for 2 days, hypoxia PROTOCOL: Frontal radiograph of the chest COMPARISON: 01/06/2024 FINDINGS: The trachea is midline. Atherosclerotic changes are noted in the thoracic aorta. The heart and mediastinal structures are within normal limits. Interstitial prominence is noted bilaterally with mild hazy perihilar airspace opacity on the right. The bony thorax is intact. Degenerative changes are noted in the shoulders and thoracic spine. XR/XR chest 1V portable IMPRESSION: Interstitial prominence is noted bilaterally with mild hazy perihilar airspace opacity on the right. Impression dictated by: Bhavesh Avendaño M.D.02/14/2024 12:59 PM Dictation Location: [place] [address] Transcribed By: [facility] 02/14/24 1259 Dictated By: Bhavesh Avendaño II, MD 02/14/24 1257 Signed By: 02/14/24 1259 Normal [facility] C Urineon 02-01-2024 Bacteria identified Cx Nom (U) Microbiology PROCEDURE: Urine Culture [R1] SOURCE: U Random BODY SITE: COLLECTED DATE/TIME: 01/30/2024 14:39 EDT RECEIVED DATE/TIME: 01/30/2024 19:21 EDT START DATE/TIME: 01/30/2024 19:21 EDT FREE TEXT SOURCE: CHIP Ponce APRN, CHIP Ponce APRN, Renae Delaney Renae X FINAL REPORTS Final Report [] Verified Date/Time: 02/01/2024 09:31 EDT <10,000 cfu/ml Mixed skin contaminants Mixed kimberly (multiple species present) Performing Locations R1: This test was performed at: [facility], [address] [place] [address], [facility] , , [facility] Comment on above: Performed By: #### 2 [id number] #### [facility] [address] [place] [address] Formson 01-31-2024 Forms [id number] Normal [facility] Physician Referralon 024 Physician Referral [id number] [facility] Ambulatory Visit Summaryon 0 01-30-2024 Ambulatory Visit Summary GERA PERDUE DOB:1945 Visit Date:01/30/2024 Ambulatory Visit Instructions Your Diagnosis Chronic kidney disease (CKD), stage III (moderate) Female incontinence Your Care Team Attending Physician - CHIP Ponce APRN, Renae Elaina Primary Care Physician - GUSTAVO SALAS DO Referring Physician - GUSTAVO SALAS DO This Is Your Medications List [facility] Prescription (Metoprolol Succinate Er 24hr 50 Mg Tab) albuterol (Albuterol (Eqv-ProAir HFA) 90 mcg/inh inhalation aerosol) albuterol-ipratropium (albuterol-ipratropium Inh Sarah Beth 3 mL UD) albuterol-ipratropium (albuterol-ipratropium Inh Sarah Beth 3 mL UD) alendronate (alendronate 70 mg Tab) atorvastatin (atorvastatin 40 mg Tab) buPROPion (buPROPion 300 mg/24 hours ER Tab) clopidogrel (clopidogrel 75 mg Tab) famotidine (famotidine 40 mg Tab) levofloxacin (levofloxacin 500 mg Tab) melatonin (Melatonin 5 mg oral tablet) nystatin topical (nystatin Top 100,000 units/g Pwdr) paroxetine potassium chloride (potassium chloride 10 mEq Cap-ER) pregabalin solifenacin (Vesicare 10 mg Tab) Discharge Vitals Temperature (Temporal Artery) 36.8 ?C Heart Rate (Peripheral) 84 Blood Pressure 118/82 Height 170 cm Height 67 in Weight 80.2 kg Weight 176.44 lb BMI 27.75 Medications What How Much When Instructions Unchanged albuterol (Albuterol (Eqv-ProAir HFA) 90 mcg/ inh inhalation aerosol) 8 EA, 0 Refill(s), INHALE 2 PUFFS BY MOUTH EVERY 4 HOURS IF NEEDED FOR WHEEZING OR SHORTNESS OF BREATH Unchanged albuterol-ipratropium (albuterol-ipratropium Inh Sarah Beth 3 mL UD) Unchanged albuterol-ipratropium (albuterol-ipratropium Inh Sarah Beth 3 mL UD) 180 EA, 0 Refill(s), INHALE CONTENTS OF 1 VIAL (3 ML) VIA NEBULIZER EVERY 12 HOURS Unchanged alendronate (alendronate 70 mg Tab) 4 EA, 0 Refill(s), TAKE 1 TABLET BY MOUTH 1 TIME A WEEK IN THE MORNING WITH A FULL GLASS OF WATER, ON AN EMPTY STOMACH. DO NOT TAKE ANYTHING ELSE BY MOUTH OR L Unchanged atorvastatin (atorvastatin 40 mg Tab) 90 EA, 0 Refill(s), TAKE 1 TABLET BY MOUTH EVERY DAY Unchanged buPROPion (buPROPion 300 mg/ 24 hours ER Tab) 90 EA, 0 Refill(s), TAKE 1 TABLET BY MOUTH EVERY DAY IN THE MORNING Unchanged clopidogrel (clopidogrel 75 mg Tab) 90 EA, 0 Refill(s), TAKE 1 TABLET BY MOUTH EVERY DAY Unchanged famotidine (famotidine 40 mg Tab) 45 EA, 0 Refill(s), TAKE 1/ 2 TABLET BY MOUTH EVERY DAY Unchanged levofloxacin (levofloxacin 500 mg Tab) Unchanged melatonin (Melatonin 5 mg oral tablet) 30 tab(s), 0 Refill(s) Unchanged Misc Prescription (Metoprolol Succinate Er 24hr 50 Mg Tab) 0 Unchanged nystatin topical (nystatin Top 100,000 units/ g Pwdr) Unchanged paroxetine By Mouth Unchanged potassium chloride (potassium chloride 10 mEq Cap-ER) Unchanged pregabalin By Mouth Unchanged solifenacin (Vesicare 10 mg Tab) By Mouth Every day Allergies acetaminophen-oxycodone aspirin Problems Ongoing - Any problem that you are currently receiving treatment for. Abdominal hernia Age related osteoporosis Anxiety Atherosclerosis of aorta Atherosclerotic heart disease of [place] coronary artery without angina pectoris Carotid stenosis Chronic heart failure with preserved ejection fraction Chronic obstructive pulmonary disease Chronic ulcer of left foot with fat layer exposed Dermatitis Diverticulosis Failed back surgical syndrome Female incontinence Generalized weakness GERD (gastroesophageal reflux disease) HLD (hyperlipidemia) Hypertension, essential Hypoxia IFG (impaired fasting glucose) Neck pain OM (onychomycosis) Osteoporosis Polyp of colon Primary localized osteoarthritis of left knee Primary osteoarthritis Recurrent major depression in partial remission S/P right coronary artery (RCA) stent placement S/P total left hip arthroplasty Shortness of breath Sinus tarsi syndrome of left foot Sleep apnea Spinal stenosis Stage 3a chronic kidney disease Transient ischemic attack Verruca plantaris Patient Survey You may receive a survey via text or e-mail asking about your office visit. Please share your experience with us by completing your survey. We appreciate your feedback and thank you for choosing us for your care. Normal [facility] Patient Educationon 01-30-20 Patient Education Obstetrics and Gynec ology Urinary Tract Infection, Adult A urinary tract infection (UTI) is an infection of any part of the urinary tract. The urinary tract includes the kidneys, ureters, bladder, and urethra. These organs make, store, and get rid of urine in the body. An upper UTI affects the ureters and kidneys. A lower UTI affects the bladder and urethra. What are the causes? Most urinary tract infections are caused by bacteria in your genital area around your urethra, where urine leaves your body. These bacteria grow and cause inflammation of your urinary tract. What increases the risk? You are more likely to develop this condition if: ? You have a urinary catheter that stays in place. ? You are not able to control when you urinate or have a bowel movement (incontinence). ? You are female and you: ? Use a spermicide or diaphragm for control. ? Have low estrogen levels. ? Are . ? You have certain genes that increase your risk. ? You are sexually active. ? You take antibiotic medicines. ? You have a condition that causes your flow of urine to slow down, such as: ? An enlarged prostate, if you are male. ? Blockage in your urethra. ? A kidney stone. ? A nerve condition that affects your bladder control (neurogenic bladder). ? Not getting enough to drink, or not urinating often. ? You have certain medical conditions, such as: ? Diabetes. ? A weak disease-fighting system (immunesystem). ? Sickle cell disease. ? Gout. ? Spinal cord injury. What are the signs or symptoms? Symptoms of this condition include: ? Needing to urinate right away (urgency). ? Frequent urination. This may include small amounts of urine each time you urinate. ? Pain or burning with urination. ? Blood in the urine. ? Urine that smells bad or unusual. ? Trouble urinating. ? Cloudy urine. ? Vaginal discharge, if you are female. ? Pain in the abdomen or the lower back. You may also have: ? Vomiting or a decreased appetite. ? Confusion. ? Irritability or tiredness. ? A fever or chills. ? Diarrhea. The first symptom in older adults may be confusion. In some cases, they may not have any symptoms until the infection has worsened. How is this diagnosed? This condition is diagnosed based on your medical history and a physical exam. You may also have other tests, including: ? Urine tests. ? Blood tests. ? Tests for STIs (sexually transmitted infections). If you have had more than one UTI, a cystoscopy or imaging studies may be done to determine the cause of the infections. How is this treated? Treatment for this condition includes: ? Antibiotic medicine. ? Jikc-jkk-nbhdarm medicines to treat discomfort. ? Drinking enough water to stay hydrated. If you have frequent infections or have other conditions such as a kidney stone, you may need to see a health care provider who specializes in the urinary tract (urologist). In rare cases, urinary tract infections can cause sepsis. Sepsis is a life-threatening condition that occurs when the body responds to an infection. Sepsis is treated in the hospital with IV antibiotics, fluids, and other medicines. Follow these instructions at home: Medicines ? Take qidj-zhs-fodotis and prescription medicines only as told by your health care provider. ? If you were prescribed an antibiotic medicine, take it as told by your health care provider. Do not stop using the antibiotic even if you start to feel better. General instructions ? Make sure you: ? Empty your bladder often and completely. Do not hold urine for long periods of time. ? Empty your bladder after sex. ? Wipe from front to back after urinating or having a bowel movement if you are female. Use each tissue only one time when you wipe. ? Drink enough fluid to keep your urine pale yellow. ? Keep all follow-up visits. This is important. Contact a health care provider if: ? Your symptoms do not get better after 1?2 days. ? Your symptoms go away and then return. Get help right away if: ? You have severe pain in your back or your lower abdomen. ? You have a fever or chills. ? You have nausea or vomiting. Summary ? A urinary tract infection (UTI) is an infection of any part of the urinary tract, which includes the kidneys, ureters, bladder, and urethra. ? Most urinary tract infections are caused by bacteria in your genital area. ? Treatment for this condition often includes antibiotic medicines. ? If you were prescribed an antibiotic medicine, take it as told by your health care provider. Do not stop using the antibiotic even if you start to feel better. ? Keep all follow-up visits. This is important. This information is not intended to replace advice given to you by your health care provider. Make sure you discuss any questions you have with your health care provider. Document Revised: 05/26/2021 Document Revie (more content not included)... Normal [facility] Urology Office/Clinic Noteon 01-30-2024 Urology Office/Clinic Note Chief Complaint Incident Response Consultant referal for incontinence HPI Staff 78 year old female referred by Dr. Salas for incontinence. Micro UA done 12/30/23. She states she thought she seen Dr. Croft before (nothing on [employer]) she just knows it was a long time ago Started at [facility] September with UTI and was transferred to [facility] in October is when they told her she had Stage 3 kidney disease (Not verified) CMP 01/06/24 BUN(31) CREAT(1.18) PVR 127 Dysuria: _denies Incomplete bladder emptying: _no Hematuria: _denies visible blood Frequency: _every half hour to every 2 hours Urgency: _yes Nocturia: _denies, wakes up being soaked with urine Stream: _denies hesitation, sometimes weaker stream Leaking: _yes Post void dripping: _yes Wearing pads/ Depends: _wears pull ups wore daily changes multiple times a day Urge incontinence: _yes Stress incontinence: _yes Incontinence without Sensory Awareness: _no Abdominal pain: _yes started awhile ago Flank pain: _left side pain been a while Sexual complaints: _N/A History of Present Illness I have reviewed and verified the staff HPI to be accurate for this encounter. Portions of this record may have been created with voice recognition artificial intelligence software, specifically CornerBlue, iLike and or QuicklyChat. Substitutions may have occurred due to the inherent limitations of voice recognition and artificial intelligence software. Review of Systems PHQ Score Initial Depression Screen Score: 0 SCORE Physical Exam Vitals & Measurements T: 36.8 ?C(Temporal Artery) HR: 84(Peripheral) BP: 118/82 HT: 67 in HT: 170 cm WT: 80.2 kg WT: 176.44 lb BMI: 27.75 General: Well developed, well nourished, in no acute distress. Genitourinary: Flank Pain: none. Bladder: nonpalpable. Assessment/Plan 1. Incomplete emptying of bladder (R33.9: Retention of urine, unspecified) PVR today 127 mL Patient reports sometimes weaker stream, other times spraying in multiple directions. Does report that she feels empty at this time. Daughter also reports frequent UTIs. Discussed possibility of urethral stricture with patient contributing to incomplete emptying, changes in stream. Will schedule Cysto with possible UD. The procedure risks, benefits, details, and treatment alternatives have been discussed with the patient. These include bleeding, infection, recurrent scar in over 50%, need for repeat dilation or other procedures, no symptom relief with dilation, among others. Will order Local anesthesia. Would like to move forward with this procedure. - Schedule cystoscopy with possible UD Ordered: Urine Culture 2. UTI (urinary tract infection) (N39.0: Urinary tract infection, site not specified) UA today with trace intact blood, moderate leukocytes Patient reports ongoing frequency, urgency, incomplete emptying. She is not sure if she has increased symptoms today. However, patient reports she has been septic secondary to UTI in the past. Can only find evidence of 1 in September 2023, which resulted sepsis. Daughter reports that she does not get typical UTI symptoms. She becomes confused, weak, fatigued. Will start Keflex today. Finish course unless instructed otherwise by our office. Rx sent to [facility] in [place]. - Start antibiotics today - Send urine for culture Ordered: cephalexin, 500 mg = 1 cap(s), Oral, q12hr, X 7 day(s), # 14 cap(s), Refills(s) 0, Pharmacy: [id number], 170, cm, 01/30/24 13:39:00 EDT, Height/Length Dosing, 80.2, kg, 01/30/24 13:39:00 EDT, Weight Dosing Urine Culture 3. Incontinence without sensory awareness (N39.42: Incontinence without sensory awareness) Patient reports that she feels she leaks all the time, generally not aware. She wakes up at night soaked with urine, changes her depends multiple times per day. She attempts to empty her bladder every 30 minutes to 2 hours, feels she is empty after urinating But does continue to soak depends. She denies constipation, has soft bowel movement at least every other day. She denies heavy intake of bladder irritants. She is on furosemide, but states that PCP is currently holding secondary to leaking problem. She is not a diabetic. Patient does not believe she has ever been on bladder medications in the past. However, I do see Vesicare on an old medication list. It does not appear that she is currently taking this medication. Discussed with patient that I am hesitant to start bladder medication at this time, given incomplete emptying and UTI. Would recommend cystoscopy/UD. Discussed voiding maneuvers. -Will reevaluate after procedure Ordered: Urine Culture Orders: [id number] Measure Post Void residual urine and/or bladder capacity by US- non-imaging Urnls Dip Stick Auto w/o Microscopy POC 20741 Urnls Dip Stick Auto w/o Microscopy POC 87603 Follow-up With When Contact Information CHIP Ponce APRN, Renae Delaney, FAM, URL Additional Instruction (more content not included)... Normal [facility] Comment on above: Result Comment: Elec tronically Signed By: CHIP Ponce APRN, Renae Delaney\.br\Date and Time Signed: 01/30/24 14:52 EDT TRANSTHORACIC ECHO (TTE) COM PLETEon 01-27-2024 TRANSTHORACIC ECHO (TTE) COMPLETE [address], [address], [place] [address] TRANSTHORACIC ECHOCARDIOGRAM REPORT Patient Name: GERA Hernandez Physician: [id number] Seth Barnes MD, [facility] Study Date: 01/27/2024 Ordering Provider: [id number] JENNA ENGLE MRN/PID: [id number] Fellow: Nurse: Date of /Age: 1 1945 / 78 years Pilates Coordinator: Inessa Roche RD, T Gender: F Additional Staff: Height: 162.56 cm Admit Date: Weight: 87.09 kg Admission Status: BSA / BMI: 1.92 m2 / 32.96 kg/m2 Department Location: [facility] Blood Pressure: 126 /78 mmHg Study Type: TRANSTHORACIC ECHO (TTE) COMPLETE Diagnosis/ICD: Shortness of breath-R06.02 Indication: History of PEA-09/2023, CAD, PTCA-04/2019, COPD, HTN, Hyperlipidemia, Tobacco Abuse, Hypoxemia, Sid, CKD-Stage III, Anemia CPT Codes: Echo Complete w Full Doppler-[id number] Study Detail: The following Echo studies were performed: 2D, M-Mode, Doppler and color flow. PHYSICIAN INTERPRETATION: Left Ventricle: Left ventricular systolic function is normal, with an estimated ejection fraction of 65-70%. There are no regional wall motion abnormalities. The left ventricular cavity size is normal. Spectral Doppler shows an impaired relaxation pattern of left ventricular diastolic filling. Left Atrium: The left atrium is normal in size. Right Ventricle: The right ventricle is normal in size. There is normal right ventricular global systolic function. Right Atrium: The right atrium is normal in size. Aortic Valve: The aortic valve is trileaflet. There is mild to moderate aortic valve cusp calcification. There is no evidence of aortic valve regurgitation. The peak instantaneous gradient of the aortic valve is 7.7 mmHg. The mean gradient of the aortic valve is 3.0 mmHg. Mitral Valve: The mitral valve is mildly thickened. There is no evidence of mitral valve regurgitation. Tricuspid Valve: The tricuspid valve is structurally normal. No evidence of tricuspid regurgitation. Pulmonic Valve: The pulmonic valve is not well visualized. There is no indication of pulmonic valve regurgitation. Pericardium: There is no pericardial effusion noted. Aorta: The aortic root is normal. Systemic Veins: The inferior vena cava appears to be of normal size. CONCLUSIONS: 1. Left ventricular systolic function is normal with a 65-70% estimated ejection fraction. 2. Spectral Doppler shows an impaired relaxation pattern of left ventricular diastolic filling. QUANTITATIVE DATA SUMMARY: 2D MEASUREMENTS: Normal Ranges: Ao Root d: 3.40 cm (2.0-3.7cm) LAs: 2.50 cm (2.7-4.0cm) RVIDd: 2.18 cm (0.9-3.6cm) IVSd: 1.06 cm (0.6-1.1cm) LVPWd: 0.86 cm (0.6-1.1cm) LVIDd: 4.39 cm (3.9-5.9cm) LVIDs: 2.81 cm LV Mass Index: 72.5 g/m2 LV % FS 36.0 % LV SYSTOLIC FUNCTION BY 2D PLANIMETRY (MOD): Normal Ranges: EF-A4C View: 68.9 % (>=55%) LV DIASTOLIC FUNCTION: Normal Ranges: MV Peak E: 0.56 m/s (0.7-1.2 m/s) MV Peak A: 0.82 m/s (0.42-0.7 m/s) E/A Ratio: 0.68 (1.0-2.2) MV lateral e' 0.08 m/s MV medial e' 0.06 m/s E/e' Ratio: 6.90 (<8.0) MITRAL VALVE: Normal Ranges: MV Vmax: 0.96 m/s (<=1.3m/s) MV peak P.7 mmHg (<5mmHg) MV mean P.0 mmHg (<48mmHg) AORTIC VALVE: Normal Ranges: AoV Vmax: 1.39 m/s (<=1.7m/s) AoV Peak P.7 mmHg (<20mmHg) AoV Mean P.0 mmHg (1.7-11.5mmHg) LVOT Max Indra: 1.14 m/s (<=1.1m/s) AoV VTI: 23.00 cm (18-25cm) LVOT VTI: 20.70 cm LVOT Diameter: 1.80 cm (1.8-2.4cm) AoV Area, VTI: 2.29 cm2 (2.5-5.5cm2) AoV Area,Vmax: 2.09 cm2 (2.5-4.5cm2) AoV Dimensionless Index: 0.90 TRICUSPID VALVE/RVSP: Normal Ranges: Peak TR Velocity: 2.09 m/s RV Syst Pressure: 20.5 mmHg (< 30mmHg) PULMONIC VALVE: Normal Ranges: PV Max Indra: 1.1 m/s (0.6-0.9m/s) PV Max P.5 mmHg [id number] Seth Barnes MD, [facility] Electronically signed on 01/29/2024 at 7:26:59 PM Final Normal [facility] Alanine aminotransferase [En zymatic activity/volume] in Serum or PlasmaOrdered By: Jenna Engle on 01-06-2024 ALT [Catalytic activity/Vol] 19 U/L Normal 7-52 [facility] Comment on above: Performed By: #### C BCNO, BMP #### [facility] [address] Albumin [Mass/volume] in Ser um or Plasma by Bromocresol green (BCG) dye binding methoOrdered By: Jenna Engle on 01-06-2024 Albumin BCG dye [Mass/Vol] 3.9 g/dL 3.5-5.7 [facility] Alkaline phosphatase [Enzyma tic activity/volume] in Serum or PlasmaOrdered By: Jenna Engle on 01-06-2024 ALP [Catalytic activity/Vol] 66 U/L Normal 34-104 [facility] Comment on above: Result Comment: PERF ORMED BY: [place] [address] PATHOLOGIST [employer] JORGE MURRELL M.D. Performed By: #### C YUSRA, BMP #### [address] Aspartate aminotransferase [ Enzymatic activity/volume] in Serum or PlasmaOrdered By: Jenna Engle on 01-06-2024 AST [Catalytic activity/Vol] 22 U/L Normal 13-39 [facility] Comment on above: Performed By: #### C YUSRA, BMP #### [address] Automated basophil %Ordered By: Jenna Engle on 01-06-2024 Basophils/100 WBC (Bld) 0.4 % Normal . [facility] Comment on above: Performed By: #### C YUSRA, BMP #### [address] Automated basophil countOrde red By: Jenna Engle on 01-06-2024 Basophils (Bld) [#/Vol] 0.1 10*3/uL Normal 0.0-0.2 [facility] Comment on above: Performed By: #### C YUSRA, BMP #### [address] Automated blood monocyte cou ntOrdered By: Jenna Engle on 01-06-2024 Monocytes (Bld) [#/Vol] 1.2 10*3/uL High 0.0-0.8 [facility] Comment on above: Performed By: #### C YUSRA, BMP #### [address] Automated eosinophil %Ordere d By: Jenna Engle on 01-06-2024 Eosinophils/100 WBC (Bld) 0.9 % Normal . [facility] Comment on above: Performed By: #### C BCMIGUEL, BMP #### [address] Automated eosinophil countOr dered By: Jenna Engle on 01-06-2024 Eosinophils (Bld) [#/Vol] 0.1 10*3/uL Normal 0.0-0.45 [facility] Comment on above: Performed By: #### C BCMIGUEL, BMP #### [address] Automated monocyte %Ordered By: Jenna Engle on 01-06-2024 Monocytes/100 WBC (Bld) 8.7 % Normal . [facility] Comment on above: Performed By: #### C BCMIGUEL, BMP #### [address] Automated neutrophil %Ordere d By: Jenna Engle on 01-06-2024 Neutrophils/100 WBC (Bld) 59.8 % Normal . [facility] Comment on above: Performed By: #### C BCMIGUEL, BMP #### [address] BNP ser/plasOrdered By: Gisel Engle on 01-06-2024 Natriuretic peptide B (Bld) [Mass/Vol] 358.0 pg/mL High 5-100 [facility] Comment on above: Result Comment: PERF ORMED BY: [place] [address] PATHOLOGIST [employer] JORGE MURRELL M.D. Performed By: #### C BCMIGUEL, BMP #### [address] Bilirubin.total [Mass/volume ] in Serum or PlasmaOrdered By: Jenna Engle on 01-06-2024 Bilirubin [Mass/Vol] 0.3 mg/dL Normal 0.3-1.0 [facility] Comment on above: Performed By: #### C BCMIGUEL, BMP #### [address] Calcium [Mass/volume] in Ser um or PlasmaOrdered By: Jenna Engle on 01-06-2024 Calcium [Mass/Vol] 9.5 mg/dL Normal 8.6-10.3 [facility] Comment on above: Performed By: #### C BCNO, BMP #### [address] Carbon dioxide, total [Moles /volume] in Serum or PlasmaOrdered By: Jenna Engle on 01-06-2024 CO2 [Moles/Vol] 31.7 mmol/L High 21.0-31.0 [facility] Comment on above: Performed By: #### C BCNO, BMP #### [address] Chloride [Moles/volume] in S kaveh or PlasmaOrdered By: Jenna Engle on 01-06-2024 Chloride [Moles/Vol] 108 mmol/L High 98-107 [facility] Comment on above: Performed By: #### C BCNO, BMP #### [address] Complete Blood Count Auto Di ffon 01-06-2024 Mean Corpuscular HGB Conc 31.6 g/dL Low 32.0-35.0 [facility] Comment on above: Performed By: #### C BCNO, BMP #### [address] NRBC% 0.0 /100{WBC} Normal 0-0.5 [facility] Comment on above: Performed By: #### C BCNO, BMP #### [address] Comprehensive Metabolic Pane harsha 01-06-2024 Albumin [Mass/Vol] 3.9 g/dL Normal 3.5-5.7 [facility] Comment on above: Performed By: #### C BCNO, BMP #### [place] [address] [place] GFR/1.73 sq M.predicted MDRD (S/P/Bld) [Vol rate/Area] 47.277 mL/min/{1.73_m2} Normal [facility] Comment on above: Performed By: #### C BCNO, BMP #### [address] Creatinine [Mass/volume] in Serum or PlasmaOrdered By: Jenna Engle on 01-06-2024 Creatinine [Mass/Vol] 1.18 mg/dL Normal 0.60-1.20 [facility] Comment on above: Performed By: #### C YUSRA, BMP #### [address] ECG 12 [place] 01-06-2024 [facility] Work Phone: Normal sinus rhythm at 62 bpm [place] interval 170 ms QRS duration 80 ms QTc 401 ms. [facility] Work Phone: [facility] Work Phone: Erythrocyte Sedimentation Ra jami 01-06-2024 ESR (Bld) [Velocity] 34 mm/h High 0-29 [facility] Comment on above: Result Comment: PERF ORMED BY: [place] [address] PATHOLOGIST [employer] JORGE MURRELL M.D. Performed By: #### C YUSRA, BMP #### [address] Erythrocyte distribution wid th [Ratio] by Automated countOrdered By: Jenna Engle on 01-06-2024 Erythrocyte distribution width (RBC) [Ratio] 20.0 % High 11.9-15.3 [facility] Comment on above: Performed By: #### C YUSRA, BMP #### [address] Erythrocyte sedimentation ra te by Photometric methodOrdered By: Jenna Engle on 01-06-2024 ESR Photometric method (Bld) [Velocity] 34 mm/hr 0-29 [facility] Erythrocytes [#/volume] in B lood by Automated countOrdered By: Jenna Engle on 01-06-2024 RBC (Bld) [#/Vol] 4.54 10*6/uL Normal 3.60-5.00 [facility] Comment on above: Performed By: #### C YUSRA, BMP #### [facility] [address] [place] [address] [place] Glucose [Mass/volume] in Ser um or PlasmaOrdered By: Jenna Engle on 01-06-2024 Glucose [Mass/Vol] 85 mg/dL Normal 70-100 [facility] Comment on above: ADA recommended refe rence rangeRandom Glucose Reference Range is dependent on time and content of last meal. Glucose of more than 200 mg/dL in a nonstressed, ambulatory subject supports the diagnosis of Diabetes Mellitus. Result Comment: [place] om Glucose Reference Range is dependent on time and content of last meal. Glucose of more than 200 mg/dL in a nonstressed, ambulatory subject supports the diagnosis of Diabetes Mellitus. ADA recommended reference range Performed By: #### C YUSRA, BMP #### [address] Hematocrit [Volume Fraction] of Blood by Automated countOrdered By: Jenna Engle on 01-06-2024 Hematocrit (Bld) [Volume fraction] 35.7 % Normal 34.0-46.4 [facility] Comment on above: Performed By: #### C YUSRA, BMP #### [address] Hemoglobin [Mass/volume] in BloodOrdered By: Jenna Engle on 01-06-2024 Hemoglobin (Bld) [Mass/Vol] 11.3 g/dL Low 11.8-15.4 [facility] Comment on above: Performed By: #### C YUSRA, BMP #### [address] Leukocytes [#/volume] correc juma for nucleated erythrocytes in Blood by Automated counOrdered By: Jenna Engle on 01-06-2024 WBC corrected for nucl RBC Auto (Bld) [#/Vol] 14.2 10*3/uL 3.8-11.6 [facility] Leukocytes [#/volume] in Blo od by Automated countOrdered By: Jenna Engle on 01-06-2024 WBC (Bld) [#/Vol] 14.2 10*3/uL High 3.8-11.6 [facility] Comment on above: Performed By: #### C YUSRA, BMP #### [address] Lymphocytes [#/volume] in Bl ood by Automated countOrdered By: Jenna Engle on 01-06-2024 Lymphocytes (Bld) [#/Vol] 4.3 10*3/uL Normal 1.00-4.8 [facility] Comment on above: Performed By: #### C YUSRA, BMP #### [address] Lymphocytes/100 leukocytes i n Blood by Automated countOrdered By: Jenna Engle on 01-06-2024 Lymphocytes/100 WBC (Bld) 30.2 % Normal . [facility] Comment on above: Performed By: #### C YUSRA, BMP #### [address] MCH [Entitic mass] by Automa juma countOrdered By: Jenna Engle on 01-06-2024 MCH (RBC) [Entitic mass] 24.9 pg Normal 24.7-34.3 [facility] Comment on above: Performed By: #### C YUSRA, BMP #### [address] MCHC Auto (RBC) [Mass/Vol]Or dered By: Jenna Engle on 01-06-2024 MCHC (RBC) [Mass/Vol] 31.6 g/dL 32.0-35.0 [facility] MCV [Entitic volume] by Auto mated countOrdered By: Jenna Engle on 01-06-2024 MCV (RBC) [Entitic vol] 78.7 fL Low 80-100 [facility] Comment on above: Performed By: #### C YUSRA, BMP #### [place] [address] [place] Neutrophils [#/volume] in Bl ood by Automated countOrdered By: Jenna Engle on 01-06-2024 Neutrophils (Bld) [#/Vol] 8.5 10*3/uL High 1.8-7.7 [facility] Comment on above: Performed By: #### C YUSRA, SANTOSH #### [address] No Panel InformationOrdered By: Jenna Engle on 01-06-2024 Estimated GFR (CKD-EPI) 47.277 mL/Min [facility] Creatinine Clearance (Chem N/A [facility] Nucleated erythrocytes [Pres ence] in Blood by Automated countOrdered By: Jenna Engle on 01-06-2024 Nucleated RBC Auto Ql (Bld) 0.0 /100{WBC} 0-0.5 [facility] Platelet mean volume [Entiti c volume] in Blood by Automated countOrdered By: Jenna Engle on 01-06-2024 Platelet mean volume (Bld) [Entitic vol] 7.2 fL Normal 6.3-10.7 [facility] Comment on above: Performed By: #### C YUSRA, SANTOSH #### [facility] [address] [place] [address] Platelets [#/volume] in Bloo d by Automated countOrdered By: Jenna Engle on 01-06-2024 Platelets (Bld) [#/Vol] 330 10*3/uL Normal 150-450 [facility] Comment on above: Performed By: #### C YUSRA, SANTOSH #### [facility] [address] [place] [address] [place] Potassium [Moles/volume] in Serum or PlasmaOrdered By: Jenna Engle on 01-06-2024 Potassium [Moles/Vol] 4.5 mmol/L Normal 3.5-5.1 [facility] Comment on above: Performed By: #### C YUSRA, BMP #### [address] Protein [Mass/volume] in Ser um or PlasmaOrdered By: Jenna Engle on 01-06-2024 Protein [Mass/Vol] 7.1 g/dL Normal 6.4-8.9 [facility] Comment on above: Performed By: #### C YUSRA, BMP #### [address] Serum globulin measurement b y calculation (mass/volume)Ordered By: Jenna Engle on 01-06-2024 Globulin (S) [Mass/Vol] 3.2 g/dL [facility] Comment on above: Performed By: #### C YUSRA, BMP #### [address] Serum or plasma albumin/glob ulin mass ratioOrdered By: Jenna Engle on 01-06-2024 Albumin/Globulin [Mass ratio] 1.2 {ratio} [facility] Comment on above: Performed By: #### C YUSRA BMP #### [address] Serum or plasma anion gap de terminationOrdered By: Jenna Engle on 01-06-2024 Anion gap [Moles/Vol] 8.8 mmol/L Normal 6.0-15.0 [facility] Comment on above: Performed By: #### C YUSRA, BMP #### [address] Sodium [Moles/volume] in Ser um or PlasmaOrdered By: Jenna Engle on 01-06-2024 Sodium [Moles/Vol] 144 mmol/L Normal 136-145 [facility] Comment on above: Performed By: #### C YUSRA, BMP #### [address] Urea nitrogen [Mass/volume] in Serum or PlasmaOrdered By: Jenna Engle on 01-06-2024 Urea nitrogen [Mass/Vol] 31 mg/dL High 7-25 [facility] Comment on above: Performed By: #### C YUSRA, BMP #### [address] XR chest 2V*on 01-06-2024 XR chest 2V* [facility] [address] [place] [address] XRay Report Signed Patient: Brought,Gera J MR#: [id number] : 1945 Acct:[id number] Age/Sex: 78 / F ADM Date: 01/06/24 Loc: XD Room: Type: [facility] Attending Dr: Jenna Engle MD Copies to: Jenna Engle MD Ordering Provider: Jenna Engle MD Date of Service: 01/06/24 XR/XR chest 2V*: R06.02 Chest 2 views CLINICAL HISTORY: Shortness of breath since cardiac arrest. COMPARISON: Chest 08/17/2023 FINDINGS: Heart appears normal in size. Chronic interstitial changes. No consolidation pneumothorax pleural effusion or free air. XR/XR chest 2V* IMPRESSION: NO ACUTE CARDIOPULMONARY ABNORMALITY. Impression dictated by: Rodriguez Palma Jr., D.O.01/06/2024 4:08 PM Dictation Location: [place] [address] Transcribed By: [facility] 01/06/24 1608 Dictated By: Rodriguez Palma Jr, DO 01/06/24 1608 Signed By: 01/06/24 1608 Normal [facility] BASIC METABOLIC PANLon 10-23 Anion gap [Moles/Vol] 9 mmol/L Normal 5-15 [facility] Comment on above: Performed By: #### C BC, BMP, , 2777-1 #### [facility] ([id number]) [address], [address] [place] [address] Calcium [Mass/Vol] 9.1 mg/dL Normal 8.5-10.5 [facility] Comment on above: Performed By: #### C BC, BMP, , 2777-1 #### [facility] ([id number]) [address], [address] [place] [address] Chloride [Moles/Vol] 102 mmol/L Normal 98-109 [facility] Comment on above: Performed By: #### C BC, BMP, , 2777-1 #### [facility] ([id number]) [address], [address] [place] [address] CO2 [Moles/Vol] 26 mmol/L Normal 22-32 Comment on above: Performed By: #### C SANTOSH MILLIGAN, , 2776-10 #### [facility] ([id number]) [address], [address] [place] [address] Creatinine [Mass/Vol] 1.08 mg/dL High 0.40-1.00 [facility] Comment on above: Result Comment: METH OD TRACEABLE TO IDMS STANDARD Performed By: #### C SANTOSH MILLIGAN, , 2776-10 #### [facility] ([id number]) [address], [facility] [address] [place] [address] GFR/1.73 sq M.predicted among non-blacks MDRD (S/P/Bld) [Vol rate/Area] 53 mL/min/{1.73_m2} Low >59 Comment on above: Result Comment: Reported eGFR is based on the CKD-EPI 2020 equation that does not use a race coefficient. Performed By: #### SANTOSH SALEEM, , 2776-10 #### [facility] ([id number]) [address], [address] [place] [address] Glucose [Mass/Vol] 96 mg/dL Normal 65-99 [facility] Comment on above: Performed By: #### SANTOSH SALEEM, , 2776-10 #### [facility] ([id number]) [address], [address] [place] [address] Potassium [Moles/Vol] 4.4 mmol/L Normal 3.5-5.0 [facility] Comment on above: Performed By: #### SANTOSH SALEEM, , 2776-10 #### [facility] ([id number]) [address], [address] [place] [address] Sodium [Moles/Vol] 137 mmol/L Normal 134-146 [facility] Comment on above: Performed By: #### C SANTOSH MILLIGAN, , 2776-10 #### [facility] ([id number]) [address], [address] [place] [address] Urea nitrogen [Mass/Vol] 13 mg/dL Normal 5-27 Comment on above: Performed By: #### SANTOSH SALEEM, , 2776-10 #### [facility] ([id number]) [address], [facility] [address] [place] [address] COMPLETE BLOOD COUNTon 10-23 Erythrocyte distribution width (RBC) [Ratio] 21.6 % High 11.5-15.0 Comment on above: Performed By: #### SANTOSH SALEEM, , 2776-10 #### [facility] ([id number]) [address], [address] [place] [address] Hematocrit (Bld) [Volume fraction] 25.8 % Low 35-47 Comment on above: Performed By: #### SANTOSH SALEEM, , 2776-10 #### [facility] ([id number]) [address] [facility] [address] [place] [address] Hemoglobin (Bld) [Mass/Vol] 8.5 g/dL Low 11.7-15.5 Comment on above: Performed By: #### SANTOSH SALEEM, , 2776-10 #### [facility] ([id number]) [address], [facility] [address] [place] [address] MCH (RBC) [Entitic mass] 26.1 pg Low 27-34 Comment on above: Performed By: #### SANTOSH SALEEM, , 2776-10 #### [facility] ([id number]) [address], [address] [place] [address] MCHC (RBC) [Mass/Vol] 32.9 g/dL Normal 32-36 [facility] Comment on above: Performed By: #### Timmy MILLIGAN, SANTOSH, , 2776-10 #### [facility] ([id number]) [address], [address] [place] [address] MCV (RBC) [Entitic vol] 79 fL Low 80-100 Comment on above: Performed By: #### Timmy MILLIGAN, SANTOSH, , 2776-10 #### [facility] ([id number]) [address], [address] [place] [address] Platelet mean volume (Bld) [Entitic vol] 6.7 fL Low 7-12 Comment on above: Performed By: #### Timmy MILLIGAN, SANTOSH, , 2776-10 #### [facility] ([id number]) [address], [address] [place] [address] Platelets (Bld) [#/Vol] 551 10*3/uL High 150-450 Comment on above: Performed By: #### Timmy MILLIGAN, SANTOSH, , 2776-10 #### [facility] ([id number]) [address], [address] [place] [address] RBC COUNT 3.26 X10E12/L Low 3.80-5.20 Comment on above: Performed By: #### Timmy MILLIGAN, BMP, , 2776-10 #### [facility] ([id number]) [address], [address] [place] [address] WBC (Bld) [#/Vol] 10.1 10*3/uL Normal 4.0-11.0 [facility] Comment on above: Performed By: #### Timmy MILLIGAN, BMP, 05603-827[address]-10 #### [facility] ([id number]) [address], [address] [place] [address] Calcium.ionized (Bld) [Mass/ Vol]on 10-23-2023 IONIZED CALCIUM 4.9 mg/dL Normal 4.5-5.3 Comment on above: Performed By: #### SNATOSH SALEEM, , 2776-10 #### [facility] ([id number]) [address], [address] [place] [address] MAGNESIUMon 10-23-2023 Magnesium [Mass/Vol] 1.7 mg/dL Low 1.8-2.6 [facility] Comment on above: Performed By: #### SANTOSH SALEEM, , 2776-10 #### [facility] ([id number]) [address], [address] [place] [address] PHOSPHORUSon 10-23-2023 Phosphate [Mass/Vol] 5.1 mg/dL High 2.4-4.9 [facility] Comment on above: Performed By: #### SANTOSH SALEEM, , 2776-10 #### [facility] ([id number]) [address], [address] [place] [address] Rheumatoid factor Nephelomet ry Qn (S)on 10-23-2023 RHEUMATOID FACTOR <10 Normal <20 [facility] Comment on above: Performed By: #### SANTOSH SALEEM, , 2776-10 #### [facility] ([id number]) [address], [address] [place] [address] BASIC METABOLIC PANLon 10-22 Anion gap [Moles/Vol] 10 mmol/L Normal 5-15 [facility] Comment on above: Performed By: #### SANTOSH SALEEM, , 2776-10 #### [facility] ([id number]) [address], [address] [place] [address] Calcium [Mass/Vol] 8.8 mg/dL Normal 8.5-10.5 [facility] Comment on above: Performed By: #### SANTOSH SALEEM, , 2776-10 #### [facility] ([id number]) [address], [address] [place] [address] Chloride [Moles/Vol] 104 mmol/L Normal 98-109 [facility] Comment on above: Performed By: #### SANTOSH SALEEM, , 2776-10 #### [facility] ([id number]) [address], [address] [place] [address] CO2 [Moles/Vol] 25 mmol/L Normal 22-32 Comment on above: Performed By: #### SANTOSH SALEEM, , 2776-10 #### [facility] ([id number]) [address], [address] [place] [address] Creatinine [Mass/Vol] 1.02 mg/dL High 0.40-1.00 [facility] Comment on above: Result Comment: METH OD TRACEABLE TO IDMS STANDARD Performed By: #### SANTOSH SALEEM, , 2776-10 #### [facility] ([id number]) [address], [address] [place] [address] GFR/1.73 sq M.predicted among non-blacks MDRD (S/P/Bld) [Vol rate/Area] 57 mL/min/{1.73_m2} Low >59 Comment on above: Result Comment: Reported eGFR is based on the CKD-EPI 2020 equation that does not use a race coefficient. Performed By: #### SANTOSH SALEEM, , 2776-10 #### [facility] ([id number]) [address], [address] [place] [address] Glucose [Mass/Vol] 86 mg/dL Normal 65-99 [facility] Comment on above: Performed By: #### C SRINI, BMP, , 2776-10 #### [facility] ([id number]) [address], [address] [place] [address] Potassium [Moles/Vol] 4.6 mmol/L Normal 3.5-5.0 [facility] Comment on above: Performed By: #### Timmy MILLIGAN, BMP, , 2776-10 #### [facility] ([id number]) [address], [address] [place] [address] Sodium [Moles/Vol] 139 mmol/L Normal 134-146 [facility] Comment on above: Performed By: #### Timmy MILLIGAN, BMP, , 2776-10 #### [facility] ([id number]) [address], [address] [place] [address] Urea nitrogen [Mass/Vol] 13 mg/dL Normal 5-27 Comment on above: Performed By: #### Timmy MILLIGAN, SANTOSH, , 2776-10 #### [facility] ([id number]) [address], [address] [place] [address] COMPLETE BLOOD COUNTon 10-22 Erythrocyte distribution width (RBC) [Ratio] 22.2 % High 11.5-15.0 Comment on above: Performed By: #### Timmy MILLIGAN, SANTOSH, , 2776-10 #### [facility] ([id number]) [address], [address] [place] [address] Hematocrit (Bld) [Volume fraction] 25.7 % Low 35-47 Comment on above: Performed By: #### Timmy MILLIGAN, BMP, , 2776-10 #### [facility] ([id number]) [address], [address] [place] [address] Hemoglobin (Bld) [Mass/Vol] 8.2 g/dL Low 11.7-15.5 Comment on above: Performed By: #### SANTOSH SALEEM, , 2776-10 #### [facility] ([id number]) [address], [address] [place] [address] MCH (RBC) [Entitic mass] 26.2 pg Low 27-34 Comment on above: Performed By: #### Timmy MILLIGAN, SANTOSH, , 2776-10 #### [facility] ([id number]) [address], [address] [place] [address] MCHC (RBC) [Mass/Vol] 32.1 g/dL Normal 32-36 [facility] Comment on above: Performed By: #### SANTOSH SALEEM, , 2776-10 #### [facility] ([id number]) [address], [address] [place] [address] MCV (RBC) [Entitic vol] 82 fL Normal 80-100 Comment on above: Performed By: #### SANTOSH SALEEM, , 2776-10 #### [facility] ([id number]) [address], [facility] [address] [place] [address] Platelet mean volume (Bld) [Entitic vol] 6.7 fL Low 7-12 Comment on above: Performed By: #### SANTOSH SALEEM, , 2776-10 #### [facility] ([id number]) [address], [address] [place] [address] Platelets (Bld) [#/Vol] 533 10*3/uL High 150-450 Comment on above: Performed By: #### SANTOSH SALEEM, , 2776-10 #### [facility] ([id number]) [address], [address] [place] [address] RBC COUNT 3.14 X10E12/L Low 3.80-5.20 Comment on above: Performed By: #### SANTOSH SALEEM, , 2776-10 #### [facility] ([id number]) [address], [address] [place] [address] WBC (Bld) [#/Vol] 9.7 10*3/uL Normal 4.0-11.0 [facility] Comment on above: Performed By: #### SANTOSH SALEEM, , 2776-10 #### [facility] ([id number]) [address], [address] [place] [address] Calcium.ionized (Bld) [Mass/ Vol]on 10-22-2023 IONIZED CALCIUM 4.9 mg/dL Normal 4.5-5.3 Comment on above: Performed By: #### SANTOSH SALEEM, , 2776-10 #### [facility] ([id number]) [address], [address] [place] [address] Glucose Glucometer (BldC) [M ass/Vol]on 10-22-2023 Glucose [Mass/Vol] 97 mg/dL Normal 65-99 [facility] MAGNESIUMon 10-22-2023 Magnesium [Mass/Vol] 2.1 mg/dL Normal 1.8-2.6 [facility] Comment on above: Performed By: #### SANTOSH SALEEM, , 2776-10 #### [facility] ([id number]) [address], [address] [place] [address] PHOSPHORUSon 10-22-2023 Phosphate [Mass/Vol] 4.9 mg/dL Normal 2.4-4.9 [facility] Comment on above: Performed By: #### SANTOSH SALEEM, , 2776-10 #### [facility] ([id number]) [address], [address] [place] [address] BASIC METABOLIC PANLon 10-21 Anion gap [Moles/Vol] 7 mmol/L Normal 5-15 [facility] Comment on above: Performed By: #### Timmy MILLIGAN, SANTOSH, , 2776-10 ####[facility] ([id number])[address], [address] [address] Calcium [Mass/Vol] 9.0 mg/dL Normal 8.5-10.5 [facility] Comment on above: Performed By: #### Timmy MILLIGAN, SANTOSH, , 2776-10 ####[facility] ([id number])[address], [address] [address] Chloride [Moles/Vol] 104 mmol/L Normal 98-109 [facility] Comment on above: Performed By: #### SANTOSH SALEEM, , 2776-10 ####[facility] ([id number])[address] [address], [place] [address] CO2 [Moles/Vol] 26 mmol/L Normal 22-32 Comment on above: Performed By: #### Timmy MILLIGAN, SANTOSH, , 2776-10 ####[facility] ([id number])[address] [address], [place] [address] Creatinine [Mass/Vol] 1.06 mg/dL High 0.40-1.00 [facility] Comment on above: Result Comment: METH OD TRACEABLE TO IDMS STANDARD Performed By: #### SANTOSH SALEEM, , 2776-10 ####[facility] ([id number])[address], [address], [place] [address] GFR/1.73 sq M.predicted among non-blacks MDRD (S/P/Bld) [Vol rate/Area] 54 mL/min/{1.73_m2} Low >59 Comment on above: Result Comment: Reported eGFR is based on the CKD-EPI 2020 equation that does not use a race coefficient. Performed By: #### C SANTOSH MILLIGAN, , 2776-10 ####[facility] ([id number])[address], [address] [address] Glucose [Mass/Vol] 88 mg/dL Normal 65-99 [facility] Comment on above: Performed By: #### C SRINI [facility], , 2776-10 ####[facility] ([id number])[address] [address], [place] [address] Potassium [Moles/Vol] 4.5 mmol/L Normal 3.5-5.0 [facility] Comment on above: Performed By: #### SANTOSH SALEEM, , 2776-10 ####[facility] ([id number])[address] [address] [address] Sodium [Moles/Vol] 137 mmol/L Normal 134-146 [facility] Comment on above: Performed By: #### Timmy MILLIGAN [facility], , 2776-10 ####[facility] ([id number])[address] [address] [address] Urea nitrogen [Mass/Vol] 12 mg/dL Normal 5-27 Comment on above: Performed By: #### SANTOSH SALEEM, , 2776-10 ####[facility] ([id number])[address] [address], [place] [address] COMPLETE BLOOD COUNTon 10-21 Erythrocyte distribution width (RBC) [Ratio] 22.0 % High 11.5-15.0 Comment on above: Performed By: #### SANTOSH SALEEM, , 2776-10 ####[facility] ([id number])[address] [address] [address] Hematocrit (Bld) [Volume fraction] 26.3 % Low 35-47 Comment on above: Performed By: #### C SRINI, [facility], , 2776-10 ####[facility] ([id number])[address] [address] Hemoglobin (Bld) [Mass/Vol] 8.5 g/dL Low 11.7-15.5 Comment on above: Performed By: #### C SRINI, [facility], , 2776-10 ####[facility] ([id number])[address] [address] MCH (RBC) [Entitic mass] 26.2 pg Low 27-34 Comment on above: Performed By: #### Timmy MILLIGAN, [facility], , 2776-10 ####[facility] ([id number])[address] [address] MCHC (RBC) [Mass/Vol] 32.4 g/dL Normal 32-36 [facility] Comment on above: Performed By: #### Timmy MILLIGAN, BMP, , 2776-10 ####[facility] ([id number])[address], [address] [address] MCV (RBC) [Entitic vol] 81 fL Normal 80-100 Comment on above: Performed By: #### C SRINI, BMP, , 2776-10 ####[facility] ([id number])[address], [address] [address] Platelet mean volume (Bld) [Entitic vol] 6.8 fL Low 7-12 Comment on above: Performed By: #### Timmy MILLIGAN, BMP, , 2776-10 ####[facility] ([id number])[address] [address] [place] [address] Platelets (Bld) [#/Vol] 611 10*3/uL High 150-450 Comment on above: Performed By: #### C SRINI, [facility], , 2776-10 ####[facility] ([id number])[address] [address] [place] [address] RBC COUNT 3.25 X10E12/L Low 3.80-5.20 Comment on above: Performed By: #### C SRINI, [facility], , 2776-10 ####[facility] ([id number])[address] [address] [place] [address] WBC (Bld) [#/Vol] 10.0 10*3/uL Normal 4.0-11.0 [facility] Comment on above: Performed By: #### Timmy MILLIGAN, [facility], , 2776-10 ####[facility] ([id number])[address] [address] [place] [address] CRP [Mass/Vol]on 10-21-2023 C REACTIVE PROTEIN 6.5 mg/dL High 0.000-0.7 4 4 Comment on above: Performed By: #### 3 8230-9 #### [facility] ([id number]) [address] [place] [address] Calcium.ionized (Bld) [Mass/ Vol]on 10-21-2023 IONIZED CALCIUM 4.9 mg/dL Normal 4.5-5.3 Comment on above: Performed By: #### 3 8230-9 #### [facility] ([id number]) [address], [address] [place] [address] ESR Photometric method (Bld) [Velocity]on 10-21-2023 ESR, ERYTHROCYTE SEDIMENTATION RATE 74 mm/h High 0-30 Comment on above: Performed By: #### 3 8230-9 #### [facility] ([id number]) [address], [address] [place] [address] Glucose Glucometer (BldC) [M ass/Vol]on 10-21-2023 Glucose [Mass/Vol] 124 mg/dL High 65-99 [facility] Glucose [Mass/Vol] 135 mg/dL High 65-99 [facility] Glucose [Mass/Vol] 126 mg/dL High 65-99 [facility] Glucose [Mass/Vol] 91 mg/dL Normal 65-99 [facility] MAGNESIUMon 10-21-2023 Magnesium [Mass/Vol] 2.6 mg/dL Normal 1.8-2.6 [facility] Comment on above: Performed By: #### 3 8230-9 #### [facility] ([id number]) [address], [address] [place] [address] Magnesium [Mass/Vol] 1.9 mg/dL Normal 1.8-2.6 [facility] Comment on above: Performed By: #### C BC, [facility], [address]-6, 2777-1 ####[facility] ([id number])[address], [address], [place] [address] PHOSPHORUSon 10-21-2023 Phosphate [Mass/Vol] 4.3 mg/dL Normal 2.4-4.9 [facility] Comment on above: Performed By: #### 3 8230-9 #### [facility] ([id number]) [address], [address] [place] [address] XR WRIST LT MIN 3 VWSon - XR WRIST LT MIN 3 VWS XR WRIST LT MIN 3 VWS XR WRIST LT MIN 3 VWS 10/21/2023 10:20 AM INDICATION: severe pain left wrist COMPARISON: None TECHNIQUE: 3 views of the left wrist were obtained Impression: 1. No acute fracture identified. 2. Degenerative changes of the distal radioulnar joint. Ulnar styloid erosion. Correlate for evidence of rheumatoid arthritis. Finalized by Sam Morin MD on 10/21/2023 10:28 AM Normal BASIC METABOLIC PANLon 10-20 Anion gap [Moles/Vol] 7 mmol/L Normal 5-15 [facility] Comment on above: Performed By: #### C SANTOSH MILLIGAN, , 2776-10 ####[facility] ([id number])[address], [address] [place] [address] Calcium [Mass/Vol] 8.6 mg/dL Normal 8.5-10.5 [facility] Comment on above: Performed By: #### SANTOSH SALEEM, , 2776-10 ####[facility] ([id number])[address] [address] Chloride [Moles/Vol] 107 mmol/L Normal 98-109 [facility] Comment on above: Performed By: #### SANTOSH SALEEM, , 2776-10 ####[facility] ([id number])[address] [place] [address] CO2 [Moles/Vol] 25 mmol/L Normal 22-32 Comment on above: Performed By: #### SANTOSH SALEEM, , 2776-10 ####[facility] ([id number])[address], [address] [place] [address] Creatinine [Mass/Vol] 1.16 mg/dL High 0.40-1.00 [facility] Comment on above: Result Comment: METH OD TRACEABLE TO IDMS STANDARD Performed By: #### C SANTOSH MILLIGAN, , 2776-10 ####[facility] ([id number])[address], [address] [place] [address] GFR/1.73 sq M.predicted among non-blacks MDRD (S/P/Bld) [Vol rate/Area] 49 mL/min/{1.73_m2} Low >59 Comment on above: Result Comment: Reported eGFR is based on the CKD-EPI 2020 equation that does not use a race coefficient. Performed By: #### C SANTOSH MILLIGAN, , 2776-10 ####[facility] ([id number])[address] [address] [address] Glucose [Mass/Vol] 80 mg/dL Normal 65-99 [facility] Comment on above: Performed By: #### C SANTOSH MILLIGAN, , 2776-10 ####[facility] ([id number])[address] [address] [address] Potassium [Moles/Vol] 4.6 mmol/L Normal 3.5-5.0 [facility] Comment on above: Performed By: #### Timmy MILLIGAN [facility], , 2776-10 ####[facility] ([id number])[address] [address] [address] Sodium [Moles/Vol] 139 mmol/L Normal 134-146 [facility] Comment on above: Performed By: #### C SANTOSH MILLIGAN, , 2776-10 ####[facility] ([id number])[address] [address] [address] Urea nitrogen [Mass/Vol] 12 mg/dL Normal 5-27 Comment on above: Performed By: #### C SANTOSH MILLIGAN, , 2776-10 ####[facility] ([id number])[address] [address] [address] COMPLETE BLOOD COUNTon 10-20 Erythrocyte distribution width (RBC) [Ratio] 22.5 % High 11.5-15.0 Comment on above: Performed By: #### C SANTOSH MILLIGAN, , 2776-10 ####[facility] ([id number])[address] [address] [address] Hematocrit (Bld) [Volume fraction] 24.8 % Low 35-47 Comment on above: Performed By: #### C , [facility], , 2776-10 ####[facility] ([id number])[address] [address] [address] Hemoglobin (Bld) [Mass/Vol] 8.1 g/dL Low 11.7-15.5 Comment on above: Performed By: #### C SRINI, [facility], , 2776-10 ####[facility] ([id number])[address] [address], [place] [address] MCH (RBC) [Entitic mass] 26.2 pg Low 27-34 Comment on above: Performed By: #### C SRINI, [facility], , 2776-10 ####[facility] ([id number])[address] [address] MCHC (RBC) [Mass/Vol] 32.4 g/dL Normal 32-36 [facility] Comment on above: Performed By: #### C SRINI, [facility], , 2776-10 ####[facility] ([id number])[address] [address] [address] MCV (RBC) [Entitic vol] 81 fL Normal 80-100 Comment on above: Performed By: #### C SRINI, [facility], , 2776-10 ####[facility] ([id number])[address] [address] Platelet mean volume (Bld) [Entitic vol] 6.7 fL Low 7-12 Comment on above: Performed By: #### Timmy MILLGIAN, SANTOSH, , 2776-10 ####[facility] ([id number])[address], [address] [place] [address] Platelets (Bld) [#/Vol] 554 10*3/uL High 150-450 Comment on above: Performed By: #### Timmy MILLIGAN, SANTOSH, , 2776-10 ####[facility] ([id number])[address], [address] [place] [address] RBC COUNT 3.08 X10E12/L Low 3.80-5.20 Comment on above: Performed By: #### SANTOSH SALEEM, , 2776-10 ####[facility] ([id number])[address], [address] [place] [address] WBC (Bld) [#/Vol] 9.3 10*3/uL Normal 4.0-11.0 [facility] Comment on above: Performed By: #### SANTOSH SALEEM, , 2776-10 ####[facility] ([id number])[address], [address] [place] [address] Glucose Glucometer (BldC) [M ass/Vol]on 10-20-2023 Glucose [Mass/Vol] 108 mg/dL High 65-99 [facility] Glucose [Mass/Vol] 115 mg/dL High 65-99 [facility] Glucose [Mass/Vol] 140 mg/dL High 65-99 [facility] Glucose [Mass/Vol] 94 mg/dL Normal 65-99 [facility] MAGNESIUMon 10-20-2023 Magnesium [Mass/Vol] 1.7 mg/dL Low 1.8-2.6 [facility] Comment on above: Performed By: #### SANTOSH SALEEM, , 2776-10 ####[facility] ([id number])[address], [place] [address] PHOSPHORUSon 10-20-2023 Phosphate [Mass/Vol] 4.2 mg/dL Normal 2.4-4.9 [facility] Comment on above: Performed By: #### C SRINI, BMP, , 2776-10 ####[facility] ([id number])[address], [place] [address] BASIC METABOLIC PANLon 10-19 Anion gap [Moles/Vol] 8 mmol/L Normal 5-15 [facility] Comment on above: Performed By: #### Timmy MILLIGAN, BMP, , 2776-10 ####[facility] ([id number])[address], [place] [address] Calcium [Mass/Vol] 8.3 mg/dL Low 8.5-10.5 [facility] Comment on above: Performed By: #### Timmy MILLIGAN, BMP, , 2776-10 ####[facility] ([id number])[address], [place] [address] Chloride [Moles/Vol] 107 mmol/L Normal 98-109 [facility] Comment on above: Performed By: #### Timmy MILLIGAN BMP, , 2776-10 ####[facility] ([id number])[address], [place] [address] CO2 [Moles/Vol] 24 mmol/L Normal 22-32 Comment on above: Performed By: #### Timmy MILLIGAN, BMP, , 2776-10 ####[facility] ([id number])[address], [place] [address] Creatinine [Mass/Vol] 1.05 mg/dL High 0.40-1.00 [facility] Comment on above: Result Comment: METH OD TRACEABLE TO IDMS STANDARD Performed By: #### C SRINI, BMP, , 2776-10 ####[facility] ([id number])[address] [address], [place] [address] GFR/1.73 sq M.predicted among non-blacks MDRD (S/P/Bld) [Vol rate/Area] 55 mL/min/{1.73_m2} Low >59 Comment on above: Result Comment: Reported eGFR is based on the CKD-EPI 2020 equation that does not use a race coefficient. Performed By: #### C SRINI, SANTOSH, , 2776-10 ####[facility] ([id number])[address] [address], [place] [address] Glucose [Mass/Vol] 82 mg/dL Normal 65-99 [facility] Comment on above: Performed By: #### Timmy MILLIGAN, [facility], , 2776-10 ####[facility] ([id number])[address] [address] [address] Potassium [Moles/Vol] 4.3 mmol/L Normal 3.5-5.0 [facility] Comment on above: Performed By: #### Timmy MILLIGAN, [facility], , 2776-10 ####[facility] ([id number])[address] [address] Sodium [Moles/Vol] 139 mmol/L Normal 134-146 [facility] Comment on above: Performed By: #### Timmy MILLIGAN, BMP, , 2776-10 ####[facility] ([id number])[address] [place] [address] Urea nitrogen [Mass/Vol] 10 mg/dL Normal 5-27 Comment on above: Performed By: #### Timmy MILLIGAN, BMP, , 2776-10 ####[facility] ([id number])[address] [address] [place] [address] COMPLETE BLOOD COUNTon 10-19 Erythrocyte distribution width (RBC) [Ratio] 22.7 % High 11.5-15.0 Comment on above: Performed By: #### Timmy MILLIGAN, BMP, , 2776-10 ####[facility] ([id number])[address] [address] Hematocrit (Bld) [Volume fraction] 24.4 % Low 35-47 Comment on above: Performed By: #### C SRINI, BMP, , 2776-10 ####[facility] ([id number])[address] [address] Hemoglobin (Bld) [Mass/Vol] 7.8 g/dL Low 11.7-15.5 Comment on above: Performed By: #### Timmy MILLIGAN BMP, , 2776-10 ####[facility] ([id number])[address] [address] MCH (RBC) [Entitic mass] 25.9 pg Low 27-34 Comment on above: Performed By: #### SANTOSH SALEEM, , 2776-10 ####[facility] ([id number])[address] [address] MCHC (RBC) [Mass/Vol] 31.8 g/dL Low 32-36 [facility] Comment on above: Performed By: #### Timmy MILLIGAN, BMP, , 2776-10 ####[facility] ([id number])[address] [address] MCV (RBC) [Entitic vol] 82 fL Normal 80-100 Comment on above: Performed By: #### Timmy BC, BMP, , 2776-10 ####[facility] ([id number])[address] [place] [address] Platelet mean volume (Bld) [Entitic vol] 6.6 fL Low 7-12 Comment on above: Performed By: #### Timmy MILLIGAN, BMP, , 2776-10 ####[facility] ([id number])[address] [address] [address] Platelets (Bld) [#/Vol] 533 10*3/uL High 150-450 Comment on above: Performed By: #### Timmy MILLIGAN, BMP, , 2776-10 ####[facility] ([id number])[address] [address] [place] [address] RBC COUNT 2.99 X10E12/L Low 3.80-5.20 Comment on above: Performed By: #### Timmy MILLIGAN, [facility], , 2776-10 ####[facility] ([id number])[address] [address] [address] WBC (Bld) [#/Vol] 9.9 10*3/uL Normal 4.0-11.0 [facility] Comment on above: Performed By: #### SANTOSH SALEEM, , 2776-10 ####[facility] ([id number])[address] [address] [address] Calcium.ionized (Bld) [Mass/ Vol]on 10-19-2023 IONIZED CALCIUM 4.9 mg/dL Normal 4.5-5.3 Comment on above: Performed By: #### 3 8230-9 ####[facility] ([id number])[address] [address] [place] [address] Glucose Glucometer (BldC) [M ass/Vol]on 10-19-2023 Glucose [Mass/Vol] 102 mg/dL High 65-99 [facility] Glucose [Mass/Vol] 117 mg/dL High 65-99 [facility] Glucose [Mass/Vol] 103 mg/dL High 65-99 [facility] MAGNESIUMon 10-19-2023 Magnesium [Mass/Vol] 2.0 mg/dL Normal 1.8-2.6 [facility] Comment on above: Performed By: #### Timmy MILLIGAN, BMP, , 2776-10 ####[facility] ([id number])[address], [place] [address] PHOSPHORUSon 10-19-2023 Phosphate [Mass/Vol] 4.3 mg/dL Normal 2.4-4.9 [facility] Comment on above: Performed By: #### SANTOSH SALEEM, , 2776-10 ####[facility] ([id number])[address], [place] [address] BASIC METABOLIC PANLon 10-18 Anion gap [Moles/Vol] 10 mmol/L Normal 5-15 [facility] Comment on above: Performed By: #### SANTOSH SALEEM, , 2776-10, 3081 ####[facility] ([id number])[address], [place] [address] Calcium [Mass/Vol] 8.5 mg/dL Normal 8.5-10.5 [facility] Comment on above: Performed By: #### Timmy MILLIGAN, BMP, , 2776-10, 308-1 ####[facility] ([id number])[address] [place] [address] Chloride [Moles/Vol] 107 mmol/L Normal 98-109 [facility] Comment on above: Performed By: #### Timmy MILLIGAN, SANTOSH, , 2776-10, 3083- ####[facility] ([id number])[address] [address], [place] [address] CO2 [Moles/Vol] 23 mmol/L Normal 22-32 Comment on above: Performed By: #### C SANTOSH MILLIGAN, , 2776-10, 3083-10 ####[facility] ([id number])[address] [address], [place] [address] Creatinine [Mass/Vol] 1.17 mg/dL High 0.40-1.00 [facility] Comment on above: Result Comment: METH OD TRACEABLE TO IDMS STANDARD Performed By: #### C SANTOSH MILLIGAN, , 2776-10, 3083-10 ####[facility] ([id number])[address] [address], [place] [address] GFR/1.73 sq M.predicted among non-blacks MDRD (S/P/Bld) [Vol rate/Area] 48 mL/min/{1.73_m2} Low >59 Comment on above: Result Comment: Reported eGFR is based on the CKD-EPI 2020 equation that does not use a race coefficient. Performed By: #### SANTOSH SALEEM, , 2776-10, 3083-10 ####[facility] ([id number])[address] [address] [address] Glucose [Mass/Vol] 82 mg/dL Normal 65-99 [facility] Comment on above: Performed By: #### Timmy MILLIGAN, SANTOSH, , 2776-10, 3083-10 ####[facility] ([id number])[address] [address] [address] [address] Potassium [Moles/Vol] 4.0 mmol/L Normal 3.5-5.0 [facility] Comment on above: Performed By: #### Timmy MILLIGAN, SANTOSH, , 2776-10, 3083-10 ####[facility] ([id number])[address], [address] [place] [address] Sodium [Moles/Vol] 140 mmol/L Normal 134-146 [facility] Comment on above: Performed By: #### C BC, BMP, , 2776-10, 3083-10 ####[facility] ([id number])[address] [address] [place] [address] Urea nitrogen [Mass/Vol] 11 mg/dL Normal 5-27 Comment on above: Performed By: #### C BC, BMP, , 2776-10, 3083-10 ####[facility] ([id number])[address] [address] [place] [address] COMPLETE BLOOD COUNTon 10-18 Erythrocyte distribution width (RBC) [Ratio] 21.2 % High 11.5-15.0 Comment on above: Performed By: #### C BC, BMP, , 2776-10, 3083-10 ####[facility] ([id number])[address] [address] [place] [address] Hematocrit (Bld) [Volume fraction] 24.6 % Low 35-47 Comment on above: Performed By: #### Timmy BC, BMP, , 2776-10, 3083-10 ####[facility] ([id number])[address] [address] [place] [address] Hemoglobin (Bld) [Mass/Vol] 7.9 g/dL Low 11.7-15.5 Comment on above: Performed By: #### Timmy BC, BMP, , 2776-10, 3083-10 ####[facility] ([id number])[address] [address] [place] [address] MCH (RBC) [Entitic mass] 26.2 pg Low 27-34 Comment on above: Performed By: #### Timmy BC, BMP, , 2776-10, 3083-10 ####[facility] ([id number])[address], [address] [place] [address] MCHC (RBC) [Mass/Vol] 32.2 g/dL Normal 32-36 [facility] Comment on above: Performed By: #### Timmy BC, BMP, , 2776-10, 3083- ####[facility] ([id number])[address], [address], [place] [address] MCV (RBC) [Entitic vol] 81 fL Normal 80-100 Comment on above: Performed By: #### Timmy MILLIGAN, BMP, , 2776-10, 3083-10 ####[facility] ([id number])[address], [address] [place] [address] Platelet mean volume (Bld) [Entitic vol] 6.5 fL Low 7-12 Comment on above: Performed By: #### Timmy MILLIGAN, BMP, , 2776-10, 3083-10 ####[facility] ([id number])[address] [address] [place] [address] Platelets (Bld) [#/Vol] 522 10*3/uL High 150-450 Comment on above: Performed By: #### Timmy BC, BMP, , 2776-10, 3083-10 ####[facility] ([id number])[address] [address] [place] [address] RBC COUNT 3.03 X10E12/L Low 3.80-5.20 Comment on above: Performed By: #### Timmy BC, BMP, , 2776-10, 3083- ####[facility] ([id number])[address], [address] [place] [address] WBC (Bld) [#/Vol] 9.3 10*3/uL Normal 4.0-11.0 [facility] Comment on above: Performed By: #### C SANTOSH MILLIGAN, , 2776-, 3083-1 ####[facility] ([id number])[address], [address] [place] [address] Calcium.ionized (Bld) [Mass/ Vol]on 10-18-2023 IONIZED CALCIUM 4.9 mg/dL Normal 4.5-5.3 Comment on above: Performed By: #### 3 8230-9 ####[facility] ([id number])[address], [address] [place] [address] Glucose Glucometer (BldC) [M ass/Vol]on 10-18-2023 Glucose [Mass/Vol] 108 mg/dL High 65-99 [facility] Glucose [Mass/Vol] 134 mg/dL High 65-99 [facility] Glucose [Mass/Vol] 127 mg/dL High 65-99 [facility] Glucose [Mass/Vol] 102 mg/dL High 65-99 [facility] MAGNESIUMon 10-18-2023 Magnesium [Mass/Vol] 1.7 mg/dL Low 1.8-2.6 [facility] Comment on above: Performed By: #### C SRINI [facility], , 2776-10, 3083-10 ####[facility] ([id number])[address], [address] [place] [address] MR CERVICAL SPINE WO CONTon 10-18-2023 MR CERVICAL SPINE WO CONT MR CERVICAL SPINE WO CONT Noncontrast MRI cervical spine on 10/17/2023 HISTORY: Neck pain, weakness COMPARISON: CTA chest 10/06/2023 TECHNIQUE: Multiplanar, multisequence MR imaging of the cervical spinal was performed. FINDINGS: Compression deformity of the C7 vertebral body appears chronic as there is no edema on STIR imaging. Otherwise vertebral body height and alignment is maintained. Multilevel degenerative disc disease with loss of normal disc height and signal intensity. No discitis. No extradural fluid collection. No intrathecal mass. No expansile cord lesion or abnormal cord signal. No soft tissue fluid collection. C2-C3: Mild facet arthropathy. No significant spinal stenosis or neural foraminal narrowing. C3-C4: Broad-based posterior disc osteophyte complex. Mild facet arthropathy. No significant spinal stenosis or neural foraminal narrowing. C4-C5: Broad-based posterior disc osteophyte complex with central protrusion. Bilateral facet arthropathy. Mild narrowing of the spinal canal. No significant neural foraminal narrowing. C5-C6: Broad-based posterior disc osteophyte complex with uncovertebral degeneration and facet arthropathy. Moderate narrowing of the spinal canal with effacement of the ventral thecal sac. Moderate left and mild right neural foraminal narrowing. C6-C7: Broad-based posterior disc osteophyte complex with uncovertebral degeneration and facet arthropathy. Mild/moderate narrowing of the spinal canal with ventral thecal sac effacement. No significant neural foraminal narrowing. C7-T1: No spinal stenosis or neural foraminal narrowing. IMPRESSION: * No acute pathologic process. * Multilevel degenerative changes with moderate spinal stenosis and left neural foraminal narrowing at C5-C6. * Remote C7 compression fracture. Finalized by Roni William MD on 10/18/2023 2:39 AM [facility] MR LUMBAR SPINE WO CONTon MR LUMBAR SPINE WO CONT MR LUMBAR SPINE WO CONT Noncontrast lumbar spine MRI on 10/17/2023 Provided history: Back pain, weakness Comparison: CT abdomen and pelvis 10/10/2023 Technique: Multiplanar, multisequence MR imaging of the lumbar spine was performed. Findings: Vertebral body height and alignment is maintained. No marrow edema. Multilevel degenerative disc disease with loss of normal intervertebral disc height and signal intensity, greatest at L4-L5 and L5-S1. No extradural fluid collection. No intrathecal mass. Conus medullaris terminates at the T12-L1 level. No abnormal cord signal. No soft tissue fluid collection. Simple left renal cyst requiring no additional evaluation. L1-2: Bilateral facet arthropathy. No spinal stenosis. No significant neural foraminal narrowing. L2-L3: Moderate bilateral facet arthropathy. Broad-based disc bulge. Mild narrowing of the spinal canal. Mild/moderate right neural foraminal narrowing. L3-L4: Moderate to severe bilateral facet arthropathy. Mild narrowing of the spinal canal. Moderate right neural foraminal narrowing. L4-L5: Broad-based disc bulge with left foraminal protrusion. Bilateral facet arthropathy. No significant spinal stenosis. Mild to moderate right and moderate left neural foraminal narrowing. L5-S1: Broad-based disc bulge with central protrusion. Mild to moderate facet arthropathy, greater on the left. No significant spinal stenosis. Severe left and mild to moderate right neural foraminal narrowing. IMPRESSION: * No acute pathologic process. * Degenerative changes resulting in significant narrowing of the L3-L4, L4-L5 and left L5-S1 neural foramina. Finalized by Roni William MD on 10/18/2023 3:37 AM Normal MR THORACIC SPINE WO CONTon 10-18-2023 MR THORACIC SPINE WO CONT MR THORACIC SPINE WO CONT Noncontrast MRI thoracic spine on 10/17/2023 HISTORY: Mid back pain, weakness COMPARISON: CTA chest 10/06/2023 TECHNIQUE: Multiple, multisequence MR imaging of the thoracic spine was performed. FINDINGS: Superior endplate compression deformity of T10 appears chronic as there is no acute edema. There are intraosseous hemangiomas within the T4 and T11 vertebrae. Vertebral body height and alignment is grossly maintained. No evidence of discitis. No extradural fluid collection. No intrathecal mass. No expansile cord lesion or abnormal cord signal. No spinal stenosis or significant neural foraminal narrowing. IMPRESSION: * No acute pathologic process or significant degenerative change. Finalized by Roni William MD on 10/18/2023 3:25 AM Normal PHOSPHORUSon 10-18-2023 Phosphate [Mass/Vol] 4.1 mg/dL Normal 2.4-4.9 [facility] Comment on above: Performed By: #### C BC, BMP, 07942-6, 2777-1, 3084-1 ####[facility] ([id number])[address], [address], [place] [address] URIC ACIDon 10-18-2023 Urate [Mass/Vol] 4.7 mg/dL Normal 2.6-7.2 [facility] Comment on above: Performed By: #### C BC, BMP, 42621-4, 2777-1, 3084-1 ####[facility] ([id number])[address], [address], [place] [address] XR WRIST RT 2 VWSon 10-18-20 23 XR WRIST RT 2 VWS XR WRIST RT 2 VWS CLINICAL INFORMATION: Acute wrist pain TECHNIQUE: 2 Wrist radiographs performed. Two images acquired. COMPARISON: No relevant prior studies available. FINDINGS: Degenerative changes of the medial carpus. There are spurring base of first metacarpal. No acute fracture dislocation erosion or periostitis. Soft tissues unremarkable. IMPRESSION: * Degenerative changes mainly involving medial compartment. No acute osseous deformity. Finalized by Prasad Rod MD on 10/18/2023 2:24 PM Normal BASIC METABOLIC PANLon 10-17 Anion gap [Moles/Vol] 8 mmol/L Normal 5-15 [facility] Comment on above: Performed By: #### 1 7928-3 #### [facility] ([id number]) [address], [address] [place] [address] Calcium [Mass/Vol] 8.5 mg/dL Normal 8.5-10.5 [facility] Comment on above: Performed By: #### 1 7928-3 #### [facility] ([id number]) [address], [address] [place] [address] Chloride [Moles/Vol] 105 mmol/L Normal 98-109 [facility] Comment on above: Performed By: #### 1 7928-3 #### [facility] ([id number]) [address], [address] [place] [address] CO2 [Moles/Vol] 24 mmol/L Normal 22-32 Comment on above: Performed By: #### 1 7928-3 #### [facility] ([id number]) [address], [address] [place] [address] Creatinine [Mass/Vol] 1.03 mg/dL High 0.40-1.00 [facility] Comment on above: Result Comment: METH OD TRACEABLE TO IDMS STANDARD Performed By: #### 1 7928-3 #### [facility] ([id number]) [address], [address] [place] [address] GFR/1.73 sq M.predicted among non-blacks MDRD (S/P/Bld) [Vol rate/Area] 56 mL/min/{1.73_m2} Low >59 Comment on above: Result Comment: Reported eGFR is based on the CKD-EPI 2020 equation that does not use a race coefficient. Performed By: #### 1 7928-3 #### [facility] ([id number]) [address], [address] [place] [address] Glucose [Mass/Vol] 88 mg/dL Normal 65-99 [facility] Comment on above: Performed By: #### 1 7928-3 #### [facility] ([id number]) [address], [address] [place] [address] Potassium [Moles/Vol] 4.2 mmol/L Normal 3.5-5.0 [facility] Comment on above: Performed By: #### 1 7928-3 #### [facility] ([id number]) [address], [address] [place] [address] Sodium [Moles/Vol] 137 mmol/L Normal 134-146 [facility] Comment on above: Performed By: #### 1 7928-3 #### [facility] ([id number]) [address], [address] [place] [address] Urea nitrogen [Mass/Vol] 13 mg/dL Normal 5-27 Comment on above: Performed By: #### 1 7928-3 #### [facility] ([id number]) [address], [address] [place] [address] COMPLETE BLOOD COUNTon 10-17 Erythrocyte distribution width (RBC) [Ratio] 21.4 % High 11.5-15.0 Comment on above: Performed By: #### 1 7928-3 #### [facility] ([id number]) [address], [address] [place] [address] Hematocrit (Bld) [Volume fraction] 25.0 % Low 35-47 Comment on above: Performed By: #### 1 7928-3 #### [facility] ([id number]) [address], [address] [place] [address] Hemoglobin (Bld) [Mass/Vol] 7.9 g/dL Low 11.7-15.5 Comment on above: Performed By: #### 1 7928-3 #### [facility] ([id number]) [address], [address] [place] [address] MCH (RBC) [Entitic mass] 25.4 pg Low 27-34 Comment on above: Performed By: #### 1 7928-3 #### [facility] ([id number]) [address], [address] [place] [address] MCHC (RBC) [Mass/Vol] 31.4 g/dL Low 32-36 [facility] Comment on above: Performed By: #### 1 7928-3 #### [facility] ([id number]) [address], [address] [place] [address] MCV (RBC) [Entitic vol] 81 fL Normal 80-100 Comment on above: Performed By: #### 1 7928-3 #### [facility] ([id number]) [address], [address] [place] [address] Platelet mean volume (Bld) [Entitic vol] 6.6 fL Low 7-12 Comment on above: Performed By: #### 1 7928-3 #### [facility] ([id number]) [address], [facility] [address] [place] [address] Platelets (Bld) [#/Vol] 519 10*3/uL High 150-450 Comment on above: Performed By: #### 1 7928-3 #### [facility] ([id number]) [address], [facility] [address] [place] [address] RBC COUNT 3.09 X10E12/L Low 3.80-5.20 Comment on above: Performed By: #### 1 7928-3 #### [facility] ([id number]) [address] [address] WBC (Bld) [#/Vol] 10.7 10*3/uL Normal 4.0-11.0 [facility] Comment on above: Performed By: #### 1 7928-3 #### [facility] ([id number]) [address], [address] [place] [address] Calcium.ionized (Bld) [Mass/ Vol]on 10-17-2023 IONIZED CALCIUM 4.8 mg/dL Normal 4.5-5.3 Comment on above: Performed By: #### 1 7928-3 #### [facility] ([id number]) [address], [address] [place] [address] Glucose Glucometer (BldC) [M ass/Vol]on 10-17-2023 Glucose [Mass/Vol] 106 mg/dL High 65-99 [facility] Glucose [Mass/Vol] 96 mg/dL Normal 65-99 [facility] Glucose [Mass/Vol] 123 mg/dL High 65-99 [facility] Glucose [Mass/Vol] 88 mg/dL Normal 65-99 [facility] MAGNESIUMon 10-17-2023 Magnesium [Mass/Vol] 2.1 mg/dL Normal 1.8-2.6 [facility] Comment on above: Performed By: #### 1 7928-3 #### [facility] ([id number]) [address] [place] [address] PHOSPHORUSon 10-17-2023 Phosphate [Mass/Vol] 3.8 mg/dL Normal 2.4-4.9 [facility] Comment on above: Result Comment: SPEC IMEN HEMOLYZED, RESULTS INCREASED SLIGHTLY HEMOLYZED Performed By: #### 1 7928-3 #### [facility] ([id number]) [address], [address] [place] [address] BASIC METABOLIC PANLon 10-16 Anion gap [Moles/Vol] 10 mmol/L Normal 5-15 [facility] Comment on above: Performed By: #### E LEC #### [facility] ([id number]) [address], [address] [place] [address] Calcium [Mass/Vol] 9.0 mg/dL Normal 8.5-10.5 [facility] Comment on above: Performed By: #### E LEC #### [facility] ([id number]) [address] [place] [address] Chloride [Moles/Vol] 106 mmol/L Normal 98-109 [facility] Comment on above: Performed By: #### E LEC #### [facility] ([id number]) [address], [address] [place] [address] CO2 [Moles/Vol] 22 mmol/L Normal 22-32 Comment on above: Performed By: #### E LEC #### [facility] ([id number]) [address] [place] [address] Creatinine [Mass/Vol] 1.03 mg/dL High 0.40-1.00 [facility] Comment on above: Result Comment: METH OD TRACEABLE TO IDMS STANDARD Performed By: #### E LEC #### [facility] ([id number]) [address], [facility] [address] [place] [address] GFR/1.73 sq M.predicted among non-blacks MDRD (S/P/Bld) [Vol rate/Area] 56 mL/min/{1.73_m2} Low >59 Comment on above: Result Comment: Reported eGFR is based on the CKD-EPI 2020 equation that does not use a race coefficient. Performed By: #### E LEC #### [facility] ([id number]) [address] [address] [place] [address] Glucose [Mass/Vol] 87 mg/dL Normal 65-99 [facility] Comment on above: Performed By: #### E LEC #### [facility] ([id number]) [address] [address] Potassium [Moles/Vol] 4.4 mmol/L Normal 3.5-5.0 [facility] Comment on above: Performed By: #### E LEC #### [facility] ([id number]) [address] [address] [place] [address] Sodium [Moles/Vol] 138 mmol/L Normal 134-146 [facility] Comment on above: Performed By: #### E LEC #### [facility] ([id number]) [address] [address] [place] [address] Urea nitrogen [Mass/Vol] 13 mg/dL Normal 5-27 Comment on above: Performed By: #### E LEC #### [facility] ([id number]) [address] [address] [place] [address] CK [Catalytic activity/Vol]o n 12-20-2023 CPK 35 U/L Normal 24-170 Comment on above: Performed By: #### 1 7928-3 #### [facility] ([id number]) [address] [place] [address] COMPLETE BLOOD COUNTon 10-16 Erythrocyte distribution width (RBC) [Ratio] 20.1 % High 11.5-15.0 Comment on above: Performed By: #### E LEC #### [facility] ([id number]) [address] [place] [address] Hematocrit (Bld) [Volume fraction] 26.5 % Low 35-47 Comment on above: Performed By: #### E LEC #### [facility] ([id number]) [address] [place] [address] Hemoglobin (Bld) [Mass/Vol] 8.5 g/dL Low 11.7-15.5 Comment on above: Performed By: #### E LEC #### [facility] ([id number]) [address], [address] [place] [address] MCH (RBC) [Entitic mass] 25.9 pg Low 27-34 Comment on above: Performed By: #### E LEC #### [facility] ([id number]) [address], [address] [place] [address] MCHC (RBC) [Mass/Vol] 32.1 g/dL Normal 32-36 [facility] Comment on above: Performed By: #### E LEC #### [facility] ([id number]) [address], [address] [place] [address] MCV (RBC) [Entitic vol] 81 fL Normal 80-100 Comment on above: Performed By: #### E LEC #### [facility] ([id number]) [address], [address] [place] [address] Platelet mean volume (Bld) [Entitic vol] 6.8 fL Low 7-12 Comment on above: Performed By: #### E LEC #### [facility] ([id number]) [address], [address] [place] [address] Platelets (Bld) [#/Vol] 633 10*3/uL High 150-450 Comment on above: Performed By: #### E LEC #### [facility] ([id number]) [address], [address] [place] [address] RBC COUNT 3.28 X10E12/L Low 3.80-5.20 Comment on above: Performed By: #### E LEC #### [facility] ([id number]) [address] [place] [address] WBC (Bld) [#/Vol] 16.2 10*3/uL High 4.0-11.0 [facility] Comment on above: Performed By: #### E LEC #### [facility] ([id number]) [address], [address] [place] [address] Calcium.ionized (Bld) [Mass/ Vol]on 10-16-2023 IONIZED CALCIUM 5.0 mg/dL Normal 4.5-5.3 Comment on above: Performed By: #### E LEC #### [facility] ([id number]) [address], [address] [place] [address] Glucose Glucometer (BldC) [M ass/Vol]on 10-16-2023 Glucose [Mass/Vol] 119 mg/dL High 65-99 [facility] Glucose [Mass/Vol] 128 mg/dL High 65-99 [facility] Glucose [Mass/Vol] 125 mg/dL High 65-99 [facility] Glucose [Mass/Vol] 88 mg/dL Normal 65-99 [facility] LIVER PANELon 10-16-2023 Albumin [Mass/Vol] 2.6 g/dL Low 3.2-5.3 [facility] Comment on above: Performed By: #### 1 7928-3 #### [facility] ([id number]) [address], [address] [place] [address] ALP [Catalytic activity/Vol] 104 U/L Normal 39-130 Comment on above: Performed By: #### 1 7928-3 #### [facility] ([id number]) [address], [address] [place] [address] ALT [Catalytic activity/Vol] 6 U/L Normal 0-31 Comment on above: Performed By: #### 1 7928-3 #### [facility] ([id number]) [address] [place] [address] AST [Catalytic activity/Vol] 16 U/L Normal 0-41 Comment on above: Performed By: #### 1 7928-3 #### [facility] ([id number]) [address] [place] [address] Bilirubin [Mass/Vol] 0.3 mg/dL Normal 0.3-1.2 [facility] Comment on above: Performed By: #### 1 7928-3 #### [facility] ([id number]) [address], [address] [place] [address] Bilirubin.direct [Mass/Vol] 0.1 mg/dL Normal 0.0-0.4 Comment on above: Performed By: #### 1 7928-3 #### [facility] ([id number]) [address] [place] [address] Protein [Mass/Vol] 6.9 g/dL Normal 6.0-8.0 [facility] Comment on above: Performed By: #### 1 7928-3 #### [facility] ([id number]) [address] [place] [address] MAGNESIUMon 10-16-2023 Magnesium [Mass/Vol] 2.9 mg/dL High 1.8-2.6 [facility] Comment on above: Performed By: #### E LEC #### [facility] ([id number]) [address] [place] [address] PHOSPHORUSon 10-16-2023 Phosphate [Mass/Vol] 4.3 mg/dL Normal 2.4-4.9 [facility] Comment on above: Performed By: #### 1 7928-3 #### [facility] ([id number]) [address] [place] [address] BASIC METABOLIC PANLon 10-15 Anion gap [Moles/Vol] 9 mmol/L Normal 5-15 [facility] Comment on above: Performed By: #### C SRINI BMP, , 2776-10 #### [facility] ([id number]) [address], [address] [place] [address] Calcium [Mass/Vol] 9.4 mg/dL Normal 8.5-10.5 [facility] Comment on above: Performed By: #### Timmy MILLIGAN BMP, , 2776-10 #### [facility] ([id number]) [address], [address] [place] [address] Chloride [Moles/Vol] 103 mmol/L Normal 98-109 [facility] Comment on above: Performed By: #### Timmy MILLIGAN, BMP, , 2776-10 #### [facility] ([id number]) [address], [address] [place] [address] CO2 [Moles/Vol] 23 mmol/L Normal 22-32 Comment on above: Performed By: #### C SRINI, SANTOSH, , 2776-10 #### [facility] ([id number]) [address], [address] [place] [address] Creatinine [Mass/Vol] 0.94 mg/dL Normal 0.40-1.00 [facility] Comment on above: Result Comment: METH OD TRACEABLE TO IDMS STANDARD Performed By: #### C SRINI, SANTOSH, , 2776-10 #### [facility] ([id number]) [address], [address] [place] [address] GFR/1.73 sq M.predicted among non-blacks MDRD (S/P/Bld) [Vol rate/Area] 62 mL/min/{1.73_m2} Normal >59 Comment on above: Result Comment: Reported eGFR is based on the CKD-EPI 2020 equation that does not use a race coefficient. Performed By: #### C SRINI, SANTOSH, , 2776-10 #### [facility] ([id number]) [address], [address] [place] [address] Glucose [Mass/Vol] 89 mg/dL Normal 65-99 [facility] Comment on above: Performed By: #### SANTOSH SALEEM, , 2776-10 #### [facility] ([id number]) [address], [address] [place] [address] Potassium [Moles/Vol] 4.2 mmol/L Normal 3.5-5.0 [facility] Comment on above: Performed By: #### Timmy MILLIGAN, SANTOSH, , 2776-10 #### [facility] ([id number]) [address], [address] [place] [address] Sodium [Moles/Vol] 135 mmol/L Normal 134-146 [facility] Comment on above: Performed By: #### C SANTOSH MILLIGAN, , 2776-10 #### [facility] ([id number]) [address], [address] [place] [address] Urea nitrogen [Mass/Vol] 13 mg/dL Normal 5-27 Comment on above: Performed By: #### C SRINI, [facility], , 2776-10 #### [facility] ([id number]) [address], [address] [place] [address] COMPLETE BLOOD COUNTon 10-15 Erythrocyte distribution width (RBC) [Ratio] 18.7 % High 11.5-15.0 Comment on above: Performed By: #### C SRINI, [facility], , 2776-10 #### [facility] ([id number]) [address], [address] [place] [address] Hematocrit (Bld) [Volume fraction] 29.7 % Low 35-47 Comment on above: Performed By: #### C SRINI, [facility], , 2776-10 #### [facility] ([id number]) [address], [address] [place] [address] Hemoglobin (Bld) [Mass/Vol] 9.3 g/dL Low 11.7-15.5 Comment on above: Performed By: #### Timmy MILLIGAN, [facility], , 2776-10 #### [facility] ([id number]) [address], [address] [place] [address] MCH (RBC) [Entitic mass] 25.1 pg Low 27-34 Comment on above: Performed By: #### C BC, [facility], , 2776-10 #### [facility] ([id number]) [address], [address] [place] [address] MCHC (RBC) [Mass/Vol] 31.3 g/dL Low 32-36 [facility] Comment on above: Performed By: #### C SRINI, SANTOSH, , 2776-10 #### [facility] ([id number]) [address], [address] [place] [address] MCV (RBC) [Entitic vol] 80 fL Normal 80-100 Comment on above: Performed By: #### Timmy MILLIGAN, SANTOSH, , 2776-10 #### [facility] ([id number]) [address] [place] [address] Platelet mean volume (Bld) [Entitic vol] 7.0 fL Normal 7-12 Comment on above: Performed By: #### Timmy MILLIGAN, SANTOSH, , 2776-10 #### [facility] ([id number]) [address] [place] [address] Platelets (Bld) [#/Vol] 705 10*3/uL High 150-450 Comment on above: Performed By: #### Timmy MILLIGAN, SANTOSH, , 2776-10 #### [facility] ([id number]) [address] [place] [address] RBC COUNT 3.71 X10E12/L Low 3.80-5.20 Comment on above: Performed By: #### Timmy MILLIGAN, SANTOSH, , 2776-10 #### [facility] ([id number]) [address], [address] [place] [address] WBC (Bld) [#/Vol] 24.4 10*3/uL High 4.0-11.0 [facility] Comment on above: Performed By: #### Timmy MILLIGAN, BMP, , 2776-10 #### [facility] ([id number]) [address], [address] [place] [address] Calcium.ionized (Bld) [Mass/ Vol]on 10-15-2023 IONIZED CALCIUM 4.8 mg/dL Normal 4.5-5.3 Comment on above: Performed By: #### 3 8230-9 #### [facility] ([id number]) [address], [address] [place] [address] FL SWALLOW MOTILITY FUNCTION on 10-15-2023 FL SWALLOW MOTILITY FUNCTION FL SWALLOW MOTILITY FUNCTION STUDY: Video fluoroscopic swallow study. CLINICAL HISTORY: Oropharyngeal dysphagia COMPARISON: 10/06/2023 FINDINGS: Lateral videofluoroscopy performed during administration of various media by speech therapy. Fluoroscopic time: 2 minutes 3 seconds. Fluoroscopic dose: (reference air kerma) 3.96 mGy. 11 cine runs captured electronically without additional radiation exposure. Zero fluoroscopic spot images obtained. FINDINGS: Drinks Thin barium: Aspiration Mildly thick barium: No aspiration or penetration. Food Applesauce: No aspiration or penetration. Fruit: No aspiration or penetration. IMPRESSION: * Abnormal examination, as detailed * Exam completed in conjunction with speech pathology. Correlate with dedicated speech pathology report for additional details and clinical recommendations. Approved by Resident: Augusto Zamora DO on 10/15/2023 2:12 PM IDenny MD have personally reviewed the image(s) and agree with and/or edited the report Finalized by Denny Pereira MD on 10/15/2023 2:48 PM Normal Glucose Glucometer (BldC) [M ass/Vol]on 10-15-2023 Glucose [Mass/Vol] 111 mg/dL High 65-99 [facility] Glucose [Mass/Vol] 93 mg/dL Normal 65-99 [facility] Glucose [Mass/Vol] 99 mg/dL Normal 65-99 [facility] MAGNESIUMon 10-15-2023 Magnesium [Mass/Vol] 1.5 mg/dL Low 1.8-2.6 [facility] Comment on above: Performed By: #### E LEC #### [facility] ([id number]) [address], [address] [place] [address] PHOSPHORUSon 10-15-2023 Phosphate [Mass/Vol] 3.4 mg/dL Normal 2.4-4.9 [facility] Comment on above: Performed By: #### E LEC #### [facility] ([id number]) [address], [address] [place] [address] Vancomycin trough [Mass/Vol] on 10-15-2023 VANCOMYCIN TROUGH 15.5 ug/mL Normal 5.0-20.0 [facility] Comment on above: Performed By: #### E LEC #### [facility] ([id number]) [address], [address] [place] [address] ELECTROLYTESon 10-14-2023 Anion gap [Moles/Vol] 7 mmol/L Normal 5-15 [facility] Comment on above: Performed By: #### E LEC #### [facility] ([id number]) [address], [address] [place] [address] Chloride [Moles/Vol] 106 mmol/L Normal 98-109 [facility] Comment on above: Performed By: #### E LEC #### [facility] ([id number]) [address], [address] [place] [address] CO2 [Moles/Vol] 22 mmol/L Normal 22-32 Comment on above: Performed By: #### E LEC #### [facility] ([id number]) [address], [address] [place] [address] Potassium [Moles/Vol] 5.8 mmol/L High 3.5-5.0 [facility] Comment on above: Performed By: #### E LEC #### [facility] ([id number]) [address], [address] [place] [address] Sodium [Moles/Vol] 135 mmol/L Normal 134-146 [facility] Comment on above: Performed By: #### E LEC #### [facility] ([id number]) [facility], [address] [place] [address] Glucose Glucometer (BldC) [M ass/Vol]on 10-14-2023 Glucose [Mass/Vol] 84 mg/dL Normal 65-99 [facility] Glucose [Mass/Vol] 105 mg/dL High 65-99 [facility] Glucose [Mass/Vol] 85 mg/dL Normal 65-99 [facility] BLOOD CULTUREon 10-13-2023 Bacteria identified Aer cx Nom (Bld) SPECIMEN NOTES SUBOPTIMAL VOLUME OF BLOOD COLLECTED, RESULTS MAY BE AFFECTED. CULTURE RESULTS NO GROWTH 5 DAYS Normal Comment on above: Performed By: #### 1 7928-3 #### [facility] ([id number]) [address] [place] [address], [address] [place] [address] BLOOD CULTUREon 10-05-2023 Bacteria identified Aer cx Nom (Bld) CULTURE RESULTS STAPHYLOCOCCUS AUREUS METHICILLIN RESISTANT Staphylcoccus aureus detected by PCR. mecA/C and MREJ gene detected by PCR (MRSA). Organism: STAPHYLOCOCCUS AUREUS Antibiotic Interpretation NATALIA Status CEFAZOLIN R F CLINDAMYCIN R >=4 F OXACILLIN R >=4 F TRIMETH/SULFAMETHOXAZOLE S <=.5/9.5 F VANCOMYCIN S 1 F DAPTOMYCIN S 0.25 F DOXYCYCLINE S 2 F Susceptible Comment on above: Performed By: #### 1 7928-3 #### [facility] ([id number]) [address] [place] [address], [address] [place] [address] Basic Metabolic Panelon 10-2 Creatinine Clr Calc Pharmacy 41.58 Normal [facility] Comment on above: Result Comment: PERF ORMED BY: [place] [address] PATHOLOGIST [employer] JORGE MURRELL M.D. Performed By: #### L ANGEL REES #### [facility] [address] [place] [address] [place] GFR/1.73 sq M.predicted MDRD (S/P/Bld) [Vol rate/Area] 52.905 mL/min/{1.73_m2} Normal [facility] Comment on above: Performed By: #### L ANGEL REES #### [facility] [address] [place] [address] [place] Calcium [Mass/volume] in Ser um or PlasmaOrdered By: Jesus Alberto Aquino on 08-20-2023 Calcium [Mass/Vol] 7.5 mg/dL Low 8.6-10.3 [facility] Comment on above: Performed By: #### L ANGEL REES #### [facility] [address] [place] [address] [place] Carbon dioxide, total [Moles /volume] in Serum or PlasmaOrdered By: Jesus Alberto Aquino on 08-20-2023 CO2 [Moles/Vol] 25.5 mmol/L Normal 21.0-31.0 [facility] Comment on above: Performed By: #### L ANGEL REES #### [facility] [address] [place] [address] [place] Chloride [Moles/volume] in S kaveh or PlasmaOrdered By: Jesus Alberto Aquino on 08-20-2023 Chloride [Moles/Vol] 109 mmol/L High 98-107 [facility] Comment on above: Performed By: #### L ANGEL REES #### [facility] [address] [place] [address] [place] Creatinine [Mass/volume] in Serum or PlasmaOrdered By: Jesus Alberto Aquino on 08-20-2023 Creatinine [Mass/Vol] 1.08 mg/dL Significan t change down 0.60-1.20 [facility] Comment on above: Delta: 1.60 on 08/19 Performed By: #### L ANGEL REES #### [facility] [address] [place] [address] [place] Glucose [Mass/volume] in Ser um or PlasmaOrdered By: Jesus Alberto Aquino on 08-20-2023 Glucose [Mass/Vol] 57 mg/dL Low 70-100 [facility] Comment on above: ADA recommended refe rence rangeRandom Glucose Reference Range is dependent on time and content of last meal. Glucose of more than 200 mg/dL in a nonstressed, ambulatory subject supports the diagnosis of Diabetes Mellitus. Result Comment: [place] om Glucose Reference Range is dependent on time and content of last meal. Glucose of more than 200 mg/dL in a nonstressed, ambulatory subject supports the diagnosis of Diabetes Mellitus. ADA recommended reference range Performed By: #### L ANGEL REES #### [address] No Panel InformationOrdered By: Jseus Alberto Aquino on 08-20-2023 Estimated GFR (CKD-EPI) 52.905 mL/Min [facility] Creatinine Clearance (Chem 41.58 [facility] Potassium [Moles/volume] in Serum or PlasmaOrdered By: Jesus Alberto Aquino on 08-20-2023 Potassium [Moles/Vol] 4.2 mmol/L Normal 3.5-5.1 [facility] Comment on above: Performed By: #### L ANGEL REES #### [address] Serum or plasma anion gap de terminationOrdered By: Jesus Alberto Aquino on 08-20-2023 Anion gap [Moles/Vol] 12.7 mmol/L Normal 6.0-15.0 [facility] Comment on above: Performed By: #### L ANGEL REES #### [place] [address] [place] Sodium [Moles/volume] in Ser um or PlasmaOrdered By: Jesus Alberto Aquino on 08-20-2023 Sodium [Moles/Vol] 143 mmol/L Normal 136-145 [facility] Comment on above: Performed By: #### L ANGEL REES #### [place] [address] [place] Urea nitrogen [Mass/volume] in Serum or PlasmaOrdered By: Jesus Alberto Aquino on 08-20-2023 Urea nitrogen [Mass/Vol] 19 mg/dL Normal 7-25 [facility] Comment on above: Performed By: #### L ANGEL REES #### [address] Basic Metabolic Panelon 10-2 Anion gap [Moles/Vol] 13.4 mmol/L Normal 6.0-15.0 [facility] Comment on above: Performed By: #### L ACTIC CUBLD #### [address] Calcium [Mass/Vol] 7.2 mg/dL Low 8.6-10.3 [facility] Comment on above: Performed By: #### L ACTICDOCLD #### [address] Chloride [Moles/Vol] 106 mmol/L Normal 98-107 [facility] Comment on above: Performed By: #### L ACTDOC HERRERALD #### [address] CO2 [Moles/Vol] 29.5 mmol/L Normal 21.0-31.0 [facility] Comment on above: Performed By: #### L ACTDOC HERRERALD #### [address] Creatinine [Mass/Vol] 1.60 mg/dL Significan t change up 0.60-1.20 [facility] Comment on above: Performed By: #### L ACTDOC HERRERALD #### [place] [address] [place] Creatinine Clr Calc Pharmacy 27.77 Normal [facility] Comment on above: Result Comment: PERF ORMED BY: [place] [address] PATHOLOGIST [employer] JORGE MURRELL M.D. Performed By: #### L ACTDOC HERRERALD #### [address] GFR/1.73 sq M.predicted MDRD (S/P/Bld) [Vol rate/Area] 33.011 mL/min/{1.73_m2} Normal [facility] Comment on above: Performed By: #### L ANGEL REES #### [address] Glucose [Mass/Vol] 63 mg/dL Low 70-100 [facility] Comment on above: Result Comment: [place] Glucose Reference Range is dependent on time and content of last meal. Glucose of more than 200 mg/dL in a nonstressed, ambulatory subject supports the diagnosis of Diabetes Mellitus. ADA recommended reference range Performed By: #### L ANGEL REES #### [address] Potassium [Moles/Vol] 3.9 mmol/L Normal 3.5-5.1 [facility] Comment on above: Performed By: #### L ANGEL REES #### [address] Sodium [Moles/Vol] 145 mmol/L Normal 136-145 [facility] Comment on above: Performed By: #### L ANGEL REES #### [address] Urea nitrogen [Mass/Vol] 37 mg/dL High 7-25 [facility] Comment on above: Performed By: #### L ANGEL REES #### [address] Erythrocyte distribution wid th [Ratio] by Automated countOrdered By: Jesus Alberto Aquino on 08-19-2023 Erythrocyte distribution width (RBC) [Ratio] 17.2 % High 11.9-15.3 [facility] Comment on above: Performed By: #### L ANGEL REES #### [address] Erythrocytes [#/volume] in B lood by Automated countOrdered By: Jesus Alberto Aquino on 08-19-2023 RBC (Bld) [#/Vol] 3.72 10*6/uL Normal 3.60-5.00 [facility] Comment on above: Performed By: #### L ANGEL REES #### [place] [address] [place] Hematocrit [Volume Fraction] of Blood by Automated countOrdered By: Jesus Alberto Aquino on 08-19-2023 Hematocrit (Bld) [Volume fraction] 31.8 % Low 34.0-46.4 [facility] Comment on above: Performed By: #### L ANGEL REES #### [address] Hemoglobin [Mass/volume] in BloodOrdered By: Jesus Alberto Aquino on 08-19-2023 Hemoglobin (Bld) [Mass/Vol] 10.3 g/dL Low 11.8-15.4 [facility] Comment on above: Performed By: #### L ANGEL REES #### [address] Hemogram CBC Without Diffon 08-19-2023 Mean Corpuscular HGB Conc 32.4 g/dL Normal 32.0-35.0 [facility] Comment on above: Performed By: #### L ANGEL REES #### [address] WBC (Bld) [#/Vol] 15.6 10*3/uL High 3.8-11.6 [facility] Comment on above: Performed By: #### L ANGEL REES #### [address] Leukocytes [#/volume] correc juma for nucleated erythrocytes in Blood by Automated counOrdered By: Jesus Alberto Aquino on 08-19-2023 WBC corrected for nucl RBC Auto (Bld) [#/Vol] 15.6 10*3/uL 3.8-11.6 [facility] MCH [Entitic mass] by Automa juma countOrdered By: Jesus Alberto Aquino on 08-19-2023 MCH (RBC) [Entitic mass] 27.7 pg Normal 24.7-34.3 [facility] Comment on above: Performed By: #### L ANGEL REES #### [address] MCHC Auto (RBC) [Mass/Vol]Or dered By: Jesus Alberto Aquino on 08-19-2023 MCHC (RBC) [Mass/Vol] 32.4 g/dL 32.0-35.0 [facility] MCV [Entitic volume] by Auto mated countOrdered By: Jesus Alberto Aquino on 08-19-2023 MCV (RBC) [Entitic vol] 85.4 fL Normal 80-100 [facility] Comment on above: Performed By: #### L ANGEL REES #### [address] Platelet mean volume [Entiti c volume] in Blood by Automated countOrdered By: Jesus Alberto Aquino on 08-19-2023 Platelet mean volume (Bld) [Entitic vol] 8.9 fL Normal 6.3-10.7 [facility] Comment on above: Result Comment: PERF ORMED BY: [place] [address] PATHOLOGIST [employer] JORGE MURRELL M.D. Performed By: #### L ANGEL REES #### [address] Platelets [#/volume] in Bloo d by Automated countOrdered By: Jesus Alberto Aquino on 08-19-2023 Platelets (Bld) [#/Vol] 201 10*3/uL Normal 150-450 [facility] Comment on above: Performed By: #### L ANGEL REES #### [address] Stool Cultureon 08-19-2023 Stool culture Negative for Shiga T oxin 1 Negative for Shiga Toxin 2 -- A negative Shiga Toxin result may occur if the antigen level in the specimen is below the detection limit of the assay. Stool culture results No Salmonella, Shigella, Campy or E. coli 0157:H7 Isolated Pseudomonas aeruginosa removed from report on 08/21/23. PERFORMED BY: [place] [address] PATHOLOGIST CH[employer] JORGE MURRELL M.D. Normal [facility] Comment on above: Performed By: #### L ANGEL REES #### [facility] [address] [place] [id number] [facility] US venous duplex LE BIon US venous duplex LE BI [facility] [address] [place] [address] Ultrasound Report Signed Patient: Gera Perdue MR#: [id number] : 1945 Acct:[id number] Age/Sex: 77 / F ADM Date: 08/17/23 Loc: Room: [address] [place] [address] Type: ADM IN Attending Dr: Jesus Alberto Aquino MD Ordering Provider: Jesus Alberto Aquino MD Date of Service: 08/18/23 US/US venous duplex LE BI: edema Copies to: Jesus Alberto Aquino MD BILATERAL LOWER EXTREMITY VENOUS DUPLEX INDICATION: Swollen legs PROCEDURE: Color-flow duplex scanning is used to interrogate the deep venous system of the right and left lower extremities. The common femoral vein, femoral vein and popliteal vein show good compressibility with normal proximal and distal augmentation. The posterior tibial and peroneal veins are compressible. US/US venous duplex LE BI IMPRESSION: NO EVIDENCE FOR DEEP VEIN THROMBOSIS OR PROXIMAL SUPERFICIAL THROMBOPHLEBITIS IN THE RIGHT OR LEFT LOWER EXTREMITY. Impression dictated by: Gustavo Garcia M.D.08/19/2023 4:33 PM Dictation Location: [place] [address] Tech: Alma Rosa Lugo Transcribed By: ANA 08/19/231632 Dictated By: Gustavo Garcia MD 08/19/231631 Signed By: 08/19/23 163 Normal [facility] Automated basophil %Ordered By: Jesus Alberto Aquino on 08-18-2023 Basophils/100 WBC (Bld) 0.3 % Normal . [facility] Comment on above: Performed By: #### L ANGEL REES #### [address] Automated basophil countOrde red By: Jesus Alberto Aquino on 08-18-2023 Basophils (Bld) [#/Vol] 0.1 10*3/uL Normal 0.0-0.2 [facility] Comment on above: Result Comment: PERF ORMED BY: [place] [address] PATHOLOGIST [employer] JORGE MURRELL M.D. Performed By: #### L ANGEL REES #### [address] Automated blood monocyte cou ntOrdered By: Jesus Alberto Aquino on 08-18-2023 Monocytes (Bld) [#/Vol] 1.1 10*3/uL High 0.0-0.8 [facility] Comment on above: Performed By: #### L ANGEL REES #### [address] Automated eosinophil %Ordere d By: Jesus Alberto Aquino on 08-18-2023 Eosinophils/100 WBC (Bld) 0.1 % Normal . [facility] Comment on above: Performed By: #### L ANGEL REES #### [address] Automated eosinophil countOr dered By: Jesus Alberto Aquino on 08-18-2023 Eosinophils (Bld) [#/Vol] 0.0 10*3/uL Normal 0.0-0.45 [facility] Comment on above: Performed By: #### L ANGEL REES #### [address] Automated monocyte %Ordered By: Jesus Alberto Aquino on 08-18-2023 Monocytes/100 WBC (Bld) 4.4 % Normal . [facility] Comment on above: Performed By: #### L ANGEL REES #### [address] Automated neutrophil %Ordere d By: Jesus Alberto Aquino on 08-18-2023 Neutrophils/100 WBC (Bld) 84.3 % Normal . [facility] Comment on above: Performed By: #### L ANGEL REES #### [address] Basic Metabolic Panelon 102 Anion gap [Moles/Vol] 13.0 mmol/L Normal 6.0-15.0 [facility] Comment on above: Performed By: #### L ANGEL REES #### [address] Calcium [Mass/Vol] 8.0 mg/dL Low 8.6-10.3 [facility] Comment on above: Performed By: #### L ANGEL REES #### [address] Chloride [Moles/Vol] 104 mmol/L Normal 98-107 [facility] Comment on above: Performed By: #### L ANGEL REES #### [address] CO2 [Moles/Vol] 27.9 mmol/L Normal 21.0-31.0 [facility] Comment on above: Performed By: #### L ANGEL REES #### [address] Creatinine [Mass/Vol] 2.74 mg/dL Significan t change up 0.60-1.20 [facility] Comment on above: Performed By: #### L ANGEL REES #### [address] Creatinine Clr Calc Pharmacy 16.06 Normal [facility] Comment on above: Result Comment: PERF ORMED BY: [place] [address] PATHOLOGIST [employer] JORGE MURRELL M.D. Performed By: #### L ANGEL REES #### [address] GFR/1.73 sq M.predicted MDRD (S/P/Bld) [Vol rate/Area] 17.310 mL/min/{1.73_m2} Normal [facility] Comment on above: Performed By: #### L ANGEL REES #### [address] Glucose [Mass/Vol] 100 mg/dL Normal 70-100 [facility] Comment on above: Result Comment: [place] Glucose Reference Range is dependent on time and content of last meal. Glucose of more than 200 mg/dL in a nonstressed, ambulatory subject supports the diagnosis of Diabetes Mellitus. ADA recommended reference range Performed By: #### L ANGEL REES #### [address] Potassium [Moles/Vol] 3.9 mmol/L Normal 3.5-5.1 [facility] Comment on above: Performed By: #### L ANGEL REES #### [address] Sodium [Moles/Vol] 141 mmol/L Normal 136-145 [facility] Comment on above: Performed By: #### L ANGEL REES #### [address] Urea nitrogen [Mass/Vol] 66 mg/dL High 7-25 [facility] Comment on above: Performed By: #### L ANGEL REES #### [address] Complete Blood Count Auto Di ffon 08-18-2023 Erythrocyte distribution width (RBC) [Ratio] 17.3 % High 11.9-15.3 [facility] Comment on above: Performed By: #### L ANGEL REES #### [address] Hematocrit (Bld) [Volume fraction] 34.8 % Normal 34.0-46.4 [facility] Comment on above: Performed By: #### L DOC REESLD #### [place] [address] [place] Hemoglobin (Bld) [Mass/Vol] 11.1 g/dL Low 11.8-15.4 [facility] Comment on above: Performed By: #### L ANGEL REES #### [address] MCH (RBC) [Entitic mass] 27.3 pg Normal 24.7-34.3 [facility] Comment on above: Performed By: #### L ANGEL REES #### [address] MCV (RBC) [Entitic vol] 85.5 fL Normal 80-100 [facility] Comment on above: Performed By: #### L ANGEL REES #### [address] Mean Corpuscular HGB Conc 31.9 g/dL Low 32.0-35.0 [facility] Comment on above: Performed By: #### L ANGEL REES #### [address] NRBC% 0.2 /100{WBC} Normal 0-0.5 [facility] Comment on above: Performed By: #### L ANGEL REES #### [address] Platelet mean volume (Bld) [Entitic vol] 8.7 fL Normal 6.3-10.7 [facility] Comment on above: Performed By: #### L ANGEL REES #### [address] Platelets (Bld) [#/Vol] 229 10*3/uL Normal 150-450 [facility] Comment on above: Performed By: #### L ANGEL REES #### [address] RBC (Bld) [#/Vol] 4.07 10*6/uL Normal 3.60-5.00 [facility] Comment on above: Performed By: #### L ANGEL REES #### [address] Leukocytes [#/volume] in Blo od by Automated countOrdered By: Jesus Alberto Aquino on 08-18-2023 WBC (Bld) [#/Vol] 25.6 10*3/uL High 3.8-11.6 [facility] Comment on above: Performed By: #### L ANGEL REES #### [facility] [address] [place] [address] [place] Lymphocytes [#/volume] in Bl ood by Automated countOrdered By: Jesus Alberto Aquino on 08-18-2023 Lymphocytes (Bld) [#/Vol] 2.8 10*3/uL Normal 1.00-4.8 [facility] Comment on above: Performed By: #### L ANGEL REES #### [facility] [address] [place] [address] [place] Lymphocytes/100 leukocytes i n Blood by Automated countOrdered By: Jesus Alberto Aquino on 08-18-2023 Lymphocytes/100 WBC (Bld) 10.9 % Normal . [facility] Comment on above: Performed By: #### L ANGEL REES #### [facility] [address] [place] [address] [place] Neutrophils [#/volume] in Bl ood by Automated countOrdered By: Jesus Alberto Aquino on 08-18-2023 Neutrophils (Bld) [#/Vol] 21.6 10*3/uL High 1.8-7.7 [facility] Comment on above: Performed By: #### L ANGEL REES #### [facility] [address] [place] [address] [place] Nucleated erythrocytes [Pres ence] in Blood by Automated countOrdered By: Jesus Alberto Aquino on 08-18-2023 Nucleated RBC Auto Ql (Bld) 0.2 /100{WBC} 0-0.5 [facility] Activated partial thrombopla stin time (aPTT) in platelet poor plasma by coagulation aOrdered By: Maury Morrissey on 08-17-2023 aPTT Coag (PPP) [Time] 26.3 s 25.1-36.5 [facility] Comment on above: A hematocrit value g reater than 55% may lead to inaccurate results in coagulation testing. Patients having hematocrit values >55% require a special collection tube for coagulation studies. Please contact the laboratory at [phone] for redraw instructions. Alanine aminotransferase [En zymatic activity/volume] in Serum or PlasmaOrdered By: Maury Morrissye on 08-17-2023 ALT [Catalytic activity/Vol] 24 U/L Normal 7-52 [facility] Comment on above: Performed By: #### L ANGEL REES #### [facility] [address] [place] [address] [place] Albumin [Mass/volume] in Ser um or Plasma by Bromocresol green (BCG) dye binding methoOrdered By: Maury Morrissey on 08-17-2023 Albumin BCG dye [Mass/Vol] 3.4 g/dL 3.5-5.7 [facility] Alkaline phosphatase [Enzyma tic activity/volume] in Serum or PlasmaOrdered By: Maury Morrissey on 08-17-2023 ALP [Catalytic activity/Vol] 64 U/L Normal 34-104 [facility] Comment on above: Performed By: #### L DOC REESLD #### [place] [address] [place] Anisocytosis [Presence] in B lood by Light microscopyOrdered By: Maury Morrissey on 08-17-2023 Anisocytosis Ql (Bld) Moderate Normal [facility] Comment on above: Performed By: #### C BCNO, BMP #### [place] [address] [place] Aspartate aminotransferase [ Enzymatic activity/volume] in Serum or PlasmaOrdered By: Maury Morrissey on 08-17-2023 AST [Catalytic activity/Vol] 23 U/L Normal 13-39 [facility] Comment on above: Performed By: #### L DOC REESLD #### [place] [address] [place] Automated basophil %Ordered By: Maury Morrissey on 08-17-2023 Basophils/100 WBC (Bld) 0.2 % Normal . [facility] Comment on above: Performed By: #### C BCNO, BMP #### [address] Automated basophil countOrde red By: Maury Morrissey on 08-17-2023 Basophils (Bld) [#/Vol] 0.0 10*3/uL Normal 0.0-0.2 [facility] Comment on above: Performed By: #### C YUSRA, BMP #### [address] Automated blood monocyte cou ntOrdered By: Maury Morrissey on 08-17-2023 Monocytes (Bld) [#/Vol] 1.6 10*3/uL High 0.0-0.8 [facility] Comment on above: Performed By: #### C YUSRA, BMP #### [address] Automated eosinophil %Ordere d By: Maury Morrissey on 08-17-2023 Eosinophils/100 WBC (Bld) 0.0 % Normal . [facility] Comment on above: Performed By: #### C YUSRA, BMP #### [address] Automated eosinophil countOr dered By: Maury Morrissey on 08-17-2023 Eosinophils (Bld) [#/Vol] 0.0 10*3/uL Normal 0.0-0.45 [facility] Comment on above: Performed By: #### C YUSRA, BMP #### [address] Automated erythrocytes count in urine sediment (number/area)Ordered By: Maury Morrissey on 08-17-2023 RBC Auto (Urine sed) [#/Area] 0-1 [HPF] 0-4 [facility] Automated leukocytes count i n urine sediment (number/area)Ordered By: Maury Morrissey on 08-17-2023 WBC Auto (Urine sed) [#/Area] 1-2 [HPF] 0-4 [facility] Automated monocyte %Ordered By: Maury Morrissey on 08-17-2023 Monocytes/100 WBC (Bld) 5.5 % Normal . [facility] Comment on above: Performed By: #### C YUSRA, BMP #### [address] Automated neutrophil %Ordere d By: Maury Morrissey on 08-17-2023 Neutrophils/100 WBC (Bld) 86.5 % Normal . [facility] Comment on above: Performed By: #### C YUSRA, BMP #### [address] Automated urine color determ inationOrdered By: Maury Morrissey on 08-17-2023 Color (U) Yellow Normal Yellow [facility] Comment on above: Order Comment: Name Collection Type:: Straight Catheter Performed By: #### A ERC #### [address] BNP ser/plasOrdered By: Saumya Morrissey on 08-17-2023 Natriuretic peptide B (Bld) [Mass/Vol] 68.0 pg/mL Normal 5-100 [facility] Comment on above: Result Comment: PERF ORMED BY: [place] [address] PATHOLOGIST [employer] JORGE MURRELL M.D. Performed By: #### C YUSRA, BMP #### [address] Basic Metabolic Panelon 10-2 Creatinine Clr Calc Pharmacy 10.00 Normal [facility] Comment on above: Result Comment: PERF ORMED BY: [place] [address] PATHOLOGIST [employer] JORGE MURRELL M.D. Performed By: #### L ANGEL REES #### [address] GFR/1.73 sq M.predicted MDRD (S/P/Bld) [Vol rate/Area] 9.700 mL/min/{1.73_m2} Normal [facility] Comment on above: Performed By: #### L ANGEL REES #### [address] [place] [address] [place] Bilirubin Test strip Ql (U)O rdered By: Maury Morrissey on 08-17-2023 Bilirubin Ql (U) Negative Negative [facility] Bilirubin.direct [Mass/volum e] in Serum or PlasmaOrdered By: Maury Morrissey on 08-17-2023 Bilirubin.direct [Mass/Vol] 0.20 mg/dL 0.03-0.18 [facility] Bilirubin.total [Mass/volume ] in Serum or PlasmaOrdered By: Maury Morrissey on 08-17-2023 Bilirubin [Mass/Vol] 0.6 mg/dL Normal 0.3-1.0 [facility] Comment on above: Performed By: #### L ANGEL REES #### [address] Blood Cultureon 08-17-2023 Bacteria identified Cx Nom (Bld) NO GROWTH 5 DAYS PERFORMED BY: [place] [address] PATHOLOGIST [employer] JORGE MURRELL M.D. Normal [facility] Comment on above: Performed By: #### L ANGEL REES #### [address] Bacteria identified Cx Nom (Bld) NO GROWTH 5 DAYS PERFORMED BY: [place] [address] PATHOLOGIST [employer] JORGE MURRELL M.D. Normal [facility] Comment on above: Performed By: #### L ANGEL REES #### [address] abdomen pelvis wo conon 1 CT abdomen pelvis wo con [place] [address] CT Scan Report Signed Patient: Gera Perdue MR#: [id number] : 1945 Acct:[id number] Age/Sex: 77 / F ADM Date: 08/17/23 Loc: ER Room: Type: [facility] ER Attending Dr: Copies to: Maury Morrissey DO Ordering Provider: Maury Morrissey DO Date of Service: 08/17/23 CT/CT abdomen pelvis wo con: weakness ([id number]) CT/CT chest wo con: weakness CT CHEST, ABDOMEN AND PELVIS WITHOUT INTRAVENOUS CONTRAST: CLINICAL HISTORY: Fall. Nausea vomiting diarrhea for weeks COMPARISON: Chest performed today. CT abdomen and pelvis 07/12/2023 TECHNIQUE: TECHNIQUE: Spiral images were obtained through the chest, abdomen and pelvis without the administration of IV contrast. This CT exam was performed using one or more following dose redu ction techniques: Automated exposure control, adjustment of the mA and/or kV according to patient size, or use of iterative reconstruction technique. FINDINGS: CT chest: Mediastinum:Thoracic aorta demonstrates moderate calcification without aneurysm. Pulmonary trunk appears nondilated. No pericardial effusion. No lymphadenopathy. The esophagus is grossly unremarkable. Lungs:Scarring involving the right lung base. No consolidation pneumothorax or pleural effusion. Soft tissues/Bones: Soft tissues demonstrate no acute findings. Osseous structures demonstrate degenerative change. CT abdomen and pelvis: Organs:Suboptimal evaluation due to lack of IV contrast. Gallbladder has been removed. Liver spleen pancreas and adrenal glands appear unremarkable. 4 mm calculus left kidney. Right kidney appears unremarkable. Abdominal aorta appears normal in caliber.[ GI: Stomach is grossly unremarkable. Small bowel appears nondilated. No acute colonic abnormality. Appendix is normal. Left para midline ventral hernia containing uncomplicated transverse colon and small bowel.[Postsurgical changes rectosigmoid colon. Pelvis:[Urinary bladder is grossly unremarkable. Uterus is atrophic. No adnexal mass.] Peritoneum/Retroperitoneum :No free air, free fluid or lymphadenopathy.[ Abd wall/Bones:Uncomplicated right paramidline fat filled ventral hernia. Osseous structures demonstrate degenerative changes. Partially visualized left hip hardware.[ CT/CT chest wo con IMPRESSION: No acute findings within the chest, abdomen or pelvis. Impression dictated by: Rodriguez Palma Jr., D.OYoanna08/17/2023 5:32 PM Dictation Location: [place] [address] Transcribed By: [facility] 08/17/23 173 Dictated By: Rodriguez Palma Jr, DO 08/17/23 172 Signed By: 08/17/23 173 Normal [facility] CT cervical spine wo conon 1 CT cervical spine wo con [facility] [place] [address] [place] [address] CT Scan Report Signed Patient: Gera Perdue MR#: [id number] : 1945 Acct:[id number] Age/Sex: 77 / F ADM Date: 08/17/23 Loc: ER Room: Type: [facility] ER Attending Dr: Copies to: Maury Morrissey DO Ordering Provider: Maury Morrissey DO Date of Service: 08/17/23 CT/CT head/brain wo con: fall ([id number]) CT/CT cervical spine wo con: fall CT BRAIN WITHOUT CONTRAST: CLINICAL HISTORY: Fall with nausea vomiting and diarrhea for weeks. COMPARISON: CT brain 07/10/2023. TECHNIQUE: Contiguous axial unenhanced images were obtained through the brain. This CT exam was performed using one or more following dose reduction techniques: Automated exposure control, adjustment of the mA and/or kV according to patient size, or use of iterative reconstruction technique. FINDINGS: There is no evidence of midline shift, intra or extra-axial fluid collection, hemorrhage or CT evidence of stroke. Cortical atrophy with chronic microvascular ischemic changes grossly similar to the prior study. Posterior fossa appears unremarkable. Visualized intraorbital contents appear unremarkable. Visualized paranasal sinuses are clear. The surrounding soft tissues are normal. CT/CT head/brain wo con IMPRESSION: NO ACUTE INTRACRANIAL ABNORMALITY. CT CERVICAL SPINE WITHOUT CONTRAST WITH 3D RECONSTRUCTIONS: CLINICAL HISTORY: Fall. COMPARISON: None TECHNIQUE: Spiral axial unenhanced images were obtained through the cervical spine. Sagittal, coronal and 3D volume-rendered reconstructions were also reviewed. This CT exam was performed using one or more following dose reduction techniques: Automated exposure control, adjustment of the mA and/or kV according to patient size, or use of iterative reconstruction technique. FINDINGS: Compression deformity involving the C7 vertebral body which appears unchanged from prior study. No definitive acute fracture line is seen. No retropulsion into the spinal canal is noted. Remaining vertebral body heights appear maintained. Mild facet joint degenerative changes. No prevertebral soft tissue swelling. Visualized left lung apex is clear. IMPRESSION: NO CERVICAL SPINE FRACTURE Impression dictated by: Rodriguez Palma Jr., D.OYoanna08/17/2023 4:52 PM Dictation Location: [place] [address] Transcribed By: [facility] 08/17/231651 Dictated By: Rodriguez Palma Jr, DO 08/17/231646 Signed By: 08/17/231651 Normal [facility] Calcium [Mass/volume] in Ser um or PlasmaOrdered By: Maury Morrissey on 08-17-2023 Calcium [Mass/Vol] 9.1 mg/dL Normal 8.6-10.3 [facility] Comment on above: Performed By: #### L ANGEL REES #### [place] [address] [place] Carbon dioxide, total [Moles /volume] in Serum or PlasmaOrdered By: Maury Morrissey on 08-17-2023 CO2 [Moles/Vol] 27.3 mmol/L Normal 21.0-31.0 [facility] Comment on above: Performed By: #### L ANGEL REES #### [facility] [address] [place] [address] [place] Chloride [Moles/volume] in S kaveh or PlasmaOrdered By: Maury Morrissey on 08-17-2023 Chloride [Moles/Vol] 97 mmol/L Low 98-107 [facility] Comment on above: Performed By: #### L ANGEL REES #### [place] [address] [place] Creatine kinase [Enzymatic a ctivity/volume] in Serum or PlasmaOrdered By: Maury Morrissey on 08-17-2023 CK [Catalytic activity/Vol] 87 U/L Normal 30-223 [facility] Comment on above: Performed By: #### C BCNO, BMP #### [facility] [address] [place] [id number] [place] Creatinine [Mass/volume] in Serum or PlasmaOrdered By: Maury Morrissey on 08-17-2023 Creatinine [Mass/Vol] 4.44 mg/dL High 0.60-1.20 [facility] Comment on above: Performed By: #### L ANGEL REES #### [facility] [address] [place] [address] [place] Dipstick and Microscopicon 1 Appearance (U) Clear Normal Clear [facility] Comment on above: Order Comment: Name Collection Type:: Straight Catheter Performed By: #### A ERC #### [address] Bacteria,Urine 1+ High None Seen [facility] Comment on above: Order Comment: Name Collection Type:: Straight Catheter Performed By: #### A ERC #### [address] Bilirubin,Urine Negative Normal Negative [facility] Comment on above: Order Comment: Name Collection Type:: Straight Catheter Performed By: #### A ERC #### [address] Glucose Ql (U) Normal Normal Normal [facility] Comment on above: Order Comment: Name Collection Type:: Straight Catheter Performed By: #### A ERC #### [address] Hyaline Casts,Urine 0-8 Normal 0-8 [facility] Comment on above: Order Comment: Name Collection Type:: Straight Catheter Result Comment: PERF ORMED BY: [place] [address] PATHOLOGIST [employer] JORGE MURRELL M.D. Performed By: #### A ERC #### [address] Ketones Ql (U) Negative Normal Negative [facility] Comment on above: Order Comment: Name Collection Type:: Straight Catheter Performed By: #### A ERC #### [address] Leukocyte esterase Test strip Ql (U) Negative Normal Negative [facility] Comment on above: Order Comment: Name Collection Type:: Straight Catheter Performed By: #### A ERC #### [address] Nitrite,Urine Negative Normal Negative [facility] Comment on above: Order Comment: Name Collection Type:: Straight Catheter Performed By: #### A ERC #### [address] Occult Blood,Urine Trace High Negative [facility] Comment on above: Order Comment: Name Collection Type:: Straight Catheter Result Comment: PERF ORMED BY: [place] [address] PATHOLOGIST [employer] JORGE MURRELL M.D. Performed By: #### A ERC #### [address] Protein,Urine Negative Normal Negative [facility] Comment on above: Order Comment: Name Collection Type:: Straight Catheter Performed By: #### A ERC #### [address] RBC LM.HPF (Urine sed) [#/Area] 0 /[HPF] Normal 0-4 [facility] Comment on above: Order Comment: Name Collection Type:: Straight Catheter Performed By: #### A ERC #### [address] Specificy [place],Urine 1.008 Normal 1.001-1.03 0 [facility] Comment on above: Order Comment: Name Collection Type:: Straight Catheter Performed By: #### A ERC #### [address] Squamous Epithelial Cell,Urine None Seen Normal 0-2 [facility] Comment on above: Order Comment: Name Collection Type:: Straight Catheter Performed By: #### A ERC #### [address] Urobilinogen,Urine Normal Normal Normal [facility] Comment on above: Order Comment: Name Collection Type:: Straight Catheter Performed By: #### A ERC #### [address] WBC,Urine 1-2 Normal 0-4 [facility] Comment on above: Order Comment: Name Collection Type:: Straight Catheter Performed By: #### A ERC #### [address] ECG 12 lead ECGon 10-21-2023 ECG 12 lead ECG [facility] [place] [address] [place] [address] Electrocardiograph Report Signed Patient: Gera Perdue MR#: [id number] : 1945 Acct:[id number] Age/Sex: 77 / F ADM Date: 08/17/23 Loc: ER Room: Type: [facility] ER Attending Dr: Ordering Provider: Maury Morrissey DO Date of Service: 08/17/23 ECG/ECG 12 lead ECG: CHEST PAIN Copies to: Test Reason : Blood Pressure : 123/057 mmHG Vent. Rate : 083 BPM Atrial Rate : 083 BPM P-R Int : 160 ms QRS Dur : 072 ms QT Int : 352 ms P-R-T Axes : 081 043 041 degrees QTc Int : 413 ms Normal sinus rhythm Low voltage QRS Borderline ECG When compared with ECG of 10-JUL-2023 07:44, No significant change was found Confirmed by Maury Morrissey DO ([id number]) on 08/17/2023 5:16:35 PM Referred By: Electronically Signed By:Maury Morrissey DO Transcribed By: MUS Signed By Maury Morrissey DO 3 1716 Normal [facility] Erythrocyte distribution wid th [Ratio] by Automated countOrdered By: Maury Morrissey on 08-17-2023 Erythrocyte distribution width (RBC) [Ratio] 17.6 % High 11.9-15.3 [facility] Comment on above: Performed By: #### C SANTOSH MENG #### [facility] [address] [place] [address] [place] Erythrocytes [#/volume] in B lood by Automated countOrdered By: Maury Morrissey on 08-17-2023 RBC (Bld) [#/Vol] 4.39 10*6/uL Normal 3.60-5.00 [facility] Comment on above: Performed By: #### C YUSRA, BMP #### [facility] [address] [place], [place] [id number] [place] Glucose [Mass/volume] in Ser um or PlasmaOrdered By: Maury Morrissey on 08-17-2023 Glucose [Mass/Vol] 79 mg/dL Normal 70-100 [facility] Comment on above: ADA recommended refe rence rangeRandom Glucose Reference Range is dependent on time and content of last meal. Glucose of more than 200 mg/dL in a nonstressed, ambulatory subject supports the diagnosis of Diabetes Mellitus. Result Comment: [place] om Glucose Reference Range is dependent on time and content of last meal. Glucose of more than 200 mg/dL in a nonstressed, ambulatory subject supports the diagnosis of Diabetes Mellitus. ADA recommended reference range Performed By: #### L ANGEL REES #### [address] Hematocrit [Volume Fraction] of Blood by Automated countOrdered By: Maury Morrissey on 08-17-2023 Hematocrit (Bld) [Volume fraction] 37.9 % Normal 34.0-46.4 [facility] Comment on above: Performed By: #### C YUSRA BMP #### [address] Hemoglobin [Mass/volume] in BloodOrdered By: Maury Morrissey on 08-17-2023 Hemoglobin (Bld) [Mass/Vol] 12.0 g/dL Normal 11.8-15.4 [facility] Comment on above: Performed By: #### C YUSRA BMP #### [address] Hepatic Panelon 08-17-2023 Albumin [Mass/Vol] 3.4 g/dL Low 3.5-5.7 [facility] Comment on above: Performed By: #### L ANGEL RESE #### [address] Bilirubin,Indirect 0.4 mg/dL Normal [facility] Comment on above: Performed By: #### L ANGEL REES #### [address] Bilirubin.indirect [Mass/Vol] 0.20 mg/dL High 0.03-0.18 [facility] Comment on above: Performed By: #### L ANGEL REES #### [address] [place] [address] [facility] Hypochromia LM Ql (Bld)Order ed By: Maury oMrrissey on 08-17-2023 Hypochromia Ql (Bld) Slight [facility] INR in Platelet poor plasma by Coagulation assayOrdered By: Maury Morrissey on 08-17-2023 INR Coag (PPP) [Relative time] 1.1 {INR} Normal [facility] Comment on above: INR Therapeutic Rang e A) Pre- and Peroperative OAT started two weeks before surgery. NOT HIP SURGERY: 1.5 - 2.5 HIP SURGERY: 2 - 3B) Primary and secondary prevention of venous THROMBOSIS: 2 - 3C) Active venous thrombosis, pulmonary embolismand prevention of recurrent venous thrombosis: 2 - 3D) Prevention of arterial thromboembolismincluding patients with mechanical heart valves: 3 - 4.5 Result Comment: INR Therapeutic Range A) Pre- and Peroperative OAT started two weeks before surgery. NOT HIP SURGERY: 1.5 - 2.5 HIP SURGERY: 2 - 3 B) Primary and secondary prevention of venous THROMBOSIS: 2 - 3 C) Active venous thrombosis, pulmonary embolism and prevention of recurrent venous thrombosis: 2 - 3 D) Prevention of arterial thromboembolism including patients with mechanical heart valves: 3 - 4.5 Performed By: #### C BCNO, BMP #### [address] Ketones Auto test strip (U) [Mass/Vol]Ordered By: Maury Morrissey on 08-17-2023 Ketones (U) [Mass/Vol] Negative Negative [facility] - UrinalysisOrder ed By: Maury Morrissey on 08-17-2023 Hyaline casts LM Ql (Urine sed) 0-8 [LPF] 0-8 [facility] Lactate [Moles/volume] in Se rum or PlasmaOrdered By: Maury Morrissey on 08-17-2023 Lactate [Moles/Vol] 1.1 mmol/L Normal 0.5-2.2 [facility] Comment on above: Result Comment: PERF ORMED BY: [place] [address] PATHOLOGIST [employer] OJRGE MURRELL M.D. Performed By: #### L ACTIC, CUBLD #### [address] Leukocytes [#/volume] correc juma for nucleated erythrocytes in Blood by Automated counOrdered By: Maury Morrissey on 08-17-2023 WBC corrected for nucl RBC Auto (Bld) [#/Vol] 29.3 10*3/uL 3.8-11.6 [facility] Leukocytes [#/volume] in Blo od by Automated countOrdered By: Maury Morrissey on 08-17-2023 WBC (Bld) [#/Vol] 29.3 10*3/uL High 3.8-11.6 [facility] Comment on above: Performed By: #### C YUSRA, BMP #### [address] Lymphocytes [#/volume] in Bl ood by Automated countOrdered By: Maury Morrissey on 08-17-2023 Lymphocytes (Bld) [#/Vol] 2.3 10*3/uL Normal 1.00-4.8 [facility] Comment on above: Performed By: #### C YUSRA, BMP #### [address] Lymphocytes/100 leukocytes i n Blood by Automated countOrdered By: Maury Morrissey on 08-17-2023 Lymphocytes/100 WBC (Bld) 7.8 % Normal . [facility] Comment on above: Performed By: #### C YUSRA, BMP #### [place] [address] [place] MCH [Entitic mass] by Automa juma countOrdered By: Maury Morrissey on 08-17-2023 MCH (RBC) [Entitic mass] 27.3 pg Normal 24.7-34.3 [facility] Comment on above: Performed By: #### C YUSRA, BMP #### [address] MCHC Auto (RBC) [Mass/Vol]Or dered By: Maury Morrissey on 08-17-2023 MCHC (RBC) [Mass/Vol] 31.6 g/dL 32.0-35.0 [facility] MCV [Entitic volume] by Auto mated countOrdered By: Maury Morrissey on 08-17-2023 MCV (RBC) [Entitic vol] 86.4 fL Normal 80-100 [facility] Comment on above: Performed By: #### C YUSRA, BMP #### [facility] [address] [id number] [place] Monocyte distribution width [Entitic volume] in Blood by AutomatedOrdered By: Maury Morrissey on 08-17-2023 Monocyte distribution width Auto (Bld) [Entitic vol] 23.25 % 0.00-20.00 [facility] Comment on above: For adults in ED, MD W > 20.0 may be associated with a higher risk of sepsis during the first 12 hrs of hospital admission Neutrophils [#/volume] in Bl ood by Automated countOrdered By: Maury Morrissey on 08-17-2023 Neutrophils (Bld) [#/Vol] 25.4 10*3/uL High 1.8-7.7 [facility] Comment on above: Performed By: #### C YUSRA, BMP #### [facility] [address] Nitrite Test strip Ql (U)Ord ered By: Maury Morrissey on 08-17-2023 Nitrite Ql (U) Negative Negative [facility] No Panel InformationOrdered By: Maury Morrissey on 08-17-2023 Estimated GFR (CKD-EPI) 9.700 mL/Min [facility] Creatinine Clearance (Chem 10.00 [facility] Nucleated erythrocytes [Pres ence] in Blood by Automated countOrdered By: Maury Morrissey on 08-17-2023 Nucleated RBC Auto Ql (Bld) 0.1 /100{WBC} 0-0.5 [facility] Partial Thromboplastin Timeo n 08-17-2023 aPTT Coag (Bld) [Time] 26.3 s Normal 25.1-36.5 [facility] Comment on above: Result Comment: A he matocrit value greater than 55% may lead to inaccurate results in coagulation testing. Patients having hematocrit values >55% require a special collection tube for coagulation studies. Please contact the laboratory at [phone] for redraw instructions. PERFORMED BY: [place] [address] PATHOLOGIST [employer] JORGE MURRELL M.D. Performed By: #### C BCMIGUEL, BMP #### [address] Platelet adequacy [Presence] in Blood by Light microscopyOrdered By: Maury Morrissey on 08-17-2023 Platelets LM Ql (Bld) Normal Normal [facility] Platelet mean volume [Entiti c volume] in Blood by Automated countOrdered By: Maury Morrissey on 08-17-2023 Platelet mean volume (Bld) [Entitic vol] 8.8 fL Normal 6.3-10.7 [facility] Comment on above: Performed By: #### C BCMIGUEL, BMP #### [address] Platelet morphology finding [Identifier] in BloodOrdered By: Maury Morrissey on 08-17-2023 Platelet morphology finding Nom (Bld) Normal Normal [facility] Platelets [#/volume] in Bloo d by Automated countOrdered By: Maury Morrissey on 08-17-2023 Platelets (Bld) [#/Vol] 298 10*3/uL Normal 150-450 [facility] Comment on above: Performed By: #### C BCNO, BMP #### [place] [address] [place] Polychromasia [Presence] in Blood by Light microscopyOrdered By: Maury Morrissey on 08-17-2023 Polychromasia LM Ql (Bld) Slight [facility] Potassium [Moles/volume] in Serum or PlasmaOrdered By: Maury Morrissey on 08-17-2023 Potassium [Moles/Vol] 4.5 mmol/L Normal 3.5-5.1 [facility] Comment on above: Performed By: #### L ACTIC, CUBLD #### [address] Protein Auto test strip (U) [Mass/Vol]Ordered By: Maury Yuni on 08-17-2023 Protein (U) [Mass/Vol] Negative Negative [facility] Protein [Mass/volume] in Ser um or PlasmaOrdered By: Maury Yuni on 08-17-2023 Protein [Mass/Vol] 7.1 g/dL Normal 6.4-8.9 [facility] Comment on above: Performed By: #### L ACTIC, CUBLD #### [address] Prothrombin time (PT)Ordered By: Maury Morrissey on 08-17-2023 PT Coag (PPP) [Time] 12.6 s Normal 9.0-12.9 [facility] Comment on above: A hematocrit value g reater than 55% may lead to inaccurate results in coagulation testing. Patients having hematocrit values >55% require a special collection tube for coagulation studies. Please contact the laboratory at [phone] for redraw instructions. Result Comment: A he matocrit value greater than 55% may lead to inaccurate results in coagulation testing. Patients having hematocrit values >55% require a special collection tube for coagulation studies. Please contact the laboratory at [phone] for redraw instructions. Performed By: #### C BCNO, BMP #### [address] RBC morphologyOrdered By: Arturo Morrissey on 08-17-2023 RBC morphology finding Nom (Bld) N/A [facility] Scan and CBCon 08-17-2023 Hypochromasia Slight Normal [facility] Comment on above: Performed By: #### C BCNO, BMP #### [address] Mean Corpuscular HGB Conc 31.6 g/dL Low 32.0-35.0 [facility] Comment on above: Performed By: #### C BCNO, BMP #### [address] Monocytes/100 WBC (Bld) 23.25 % High 0.00-20.00 [facility] Comment on above: Result Comment: For adults in ED, MDW > 20.0 may be associated with a higher risk of sepsis during the first 12 hrs of hospital admission Performed By: #### C YUSRA, BMP #### [address] NRBC% 0.1 /100{WBC} Normal 0-0.5 [facility] Comment on above: Performed By: #### C YUSRA, BMP #### [address] Platelet Estimate Normal Normal Normal [facility] Comment on above: Performed By: #### C YUSRA, BMP #### [address] Platelet Morphology Normal Normal Normal [facility] Comment on above: Result Comment: PERF ORMED BY: [place] [address] PATHOLOGIST [employer] JORGE MURRELL M.D. Performed By: #### C YUSRA, BMP #### [address] Polychromasia Slight Normal [facility] Comment on above: Performed By: #### C YUSRA, BMP #### [address] Serum globulin measurement b y calculation (mass/volume)Ordered By: Maury Morrissey on 08-17-2023 Globulin (S) [Mass/Vol] 3.7 g/dL Normal [facility] Comment on above: Performed By: #### L ANGEL REES #### [address] Serum or plasma albumin/glob ulin mass ratioOrdered By: Maury Morrissey on 08-17-2023 Albumin/Globulin [Mass ratio] 0.9 {ratio} [facility] Comment on above: Performed By: #### L ANGEL REES #### [address] Serum or plasma anion gap de terminationOrdered By: Maury Morrissey on 08-17-2023 Anion gap [Moles/Vol] 23.2 mmol/L High 6.0-15.0 [facility] Comment on above: Performed By: #### L ANGEL REES #### [address] Serum or plasma non-glucuron idated bilirubin measurement (mass/volume)Ordered By: Maury Morrissey on 08-17-2023 Bilirubin.indirect [Mass/Vol] 0.4 mg/dL [facility] Sodium [Moles/volume] in Ser um or PlasmaOrdered By: Maury Morrissey on 08-17-2023 Sodium [Moles/Vol] 143 mmol/L Normal 136-145 [facility] Comment on above: Performed By: #### L ANGEL REES #### [address] Specific gravity Auto test s trip (U) [Rel density]Ordered By: Maury Morrissey on 08-17-2023 Specific gravity (U) [Rel density] 1.008 1.001-1.03 0 [facility] Squamous epithelial cells de tection in urine sediment by light microscopyOrdered By: Maury Morrissey on 08-17-2023 Epithelial cells.squamous LM Ql (Urine sed) None seen [HPF] 0-2 [facility] Troponin I High Sensitivityo n 08-17-2023 Troponin I High Sensitivity 38.1 pg/mL High 0.0-15.0 [facility] Comment on above: Result Comment: PERF ORMED BY: [place] [address] PATHOLOGIST [employer] JORGE MURRELL M.D. Performed By: #### C BCNO, BMP #### [address] Troponin I.cardiac [Mass/vol ume] in Serum or Plasma by Detection limit <= 0.01 ng/Ordered By: Maury Morrissey on 08-17-2023 Troponin I.cardiac DL <= 0.01 ng/mL [Mass/Vol] 38.1 pg/mL 0.0-15.0 [facility] Urea nitrogen [Mass/volume] in Serum or PlasmaOrdered By: Maury Morrissey on 08-17-2023 Urea nitrogen [Mass/Vol] 92 mg/dL High 7-25 [facility] Comment on above: Performed By: #### L ANGEL REES #### [facility] [address] [place] [address] Urine bacteria detection by automated methodOrdered By: Maury Morrissey on 08-17-2023 Bacteria Auto Ql (U) 1+ None Seen [facility] Urine clarity by refractomet ry automatedOrdered By: Maury Morrissey on 08-17-2023 Clarity Refractometry automated (U) Clear Clear [facility] Urine glucose measurement by automated test strip (mass/volume)Ordered By: Maury Morrissey on 08-17-2023 Glucose Auto test strip (U) [Mass/Vol] Normal mg/dL Normal [facility] Urine hemoglobin detection b y automated test stripOrdered By: Maury Morrissey on 08-17-2023 Hemoglobin Auto test strip Ql (U) Trace Negative [facility] Urine leukocyte esterase det ection by automated test stripOrdered By: Maury Morrissey on 08-17-2023 Leukocyte esterase Auto test strip Ql (U) Negative Negative [facility] Urine pH measurement by auto mated test stripOrdered By: Maury Morrissey on 08-17-2023 pH (U) 5.5 [pH] Normal 5.0-9.0 [facility] Comment on above: Order Comment: Name Collection Type:: Straight Catheter Performed By: #### A ERC #### [facility] [address] [place] [address] Urobilinogen Auto test strip (U) [Mass/Vol]Ordered By: Maury Morrissey on 08-17-2023 Urobilinogen (U) [Mass/Vol] Normal mg/dL Normal [facility] XR chest 1V portableon 08-17 XR chest 1V portable [place] [address] XRay Report Signed Patient: Gera Perdue MR#: [id number] : 1945 Acct:[id number] Age/Sex: 77 / F ADM Date: 08/17/23 Loc: ER Room: Type: [facility] ER Attending Dr: Copies to: Maury Morrissey DO Ordering Provider: Maury Morrissey DO Date of Service: 08/17/23 XR/XR chest 1V portable: CHEST PAIN SINGLE VIEW CHEST CLINICAL HISTORY: Weakness, fall today. COMPARISON: Chest 07/10/2023 FINDINGS: Heart appears normal in size. Chronic interstitial changes. No consolidation pneumothorax pleural effusion or free air. XR/XR chest 1V portable IMPRESSION: NO ACUTE FINDINGS Impression dictated by: Rodriguez Palma Jr. D.OYoanna08/17/2023 4:36 PM Dictation Location: RADIO-PC-15 Transcribed By: ANA 08/17/23 1636 Dictated By: Rodriguez Palma Jr, DO 08/17/23 1636 Signed By: 08/17/23 1636 Normal [facility] XR hip BI w [id number] 08-17-20 XR hip BI w PEL1V [facility] [place] [address] XRay Report Signed Patient: Gera Perdue MR#: [id number] : 1945 Acct:[id number] Age/Sex: 77 / F ADM Date: 08/17/23 Loc: ER Room: Type: [facility] ER Attending Dr: Copies to: Maury Morrissey DO Ordering Provider: Maury Morrissey DO Date of Service: 08/17/23 XR/XR hip BI w PEL1V: Weakness ADULT PELVIS WITH BILATERAL HIPS - 2 views each CLINICAL HISTORY: Fall today. Bilateral hip pain. COMPARISON: None FINDINGS: Bones are grossly demineralized limiting evaluation for fracture. Degenerative changes are seen involving the visualized lower lumbar spine, SI joints and pubic symphysis. Moderate degenerative changes of the hips. Previously hardware fixation is seen involving the left hip without radiographic complication. Vascular calcifications. XR/XR hip BI w PEL1V IMPRESSION: DEGENERATIVE CHANGES ARE NOTED INVOLVING THE HIPS AND BONY PELVIS WITHOUT ACUTE BONY PROCESS NOTED. Impression dictated by: Rodriguez Palma Jr. D.OYoanna08/17/2023 5:14 PM Dictation Location: RADIO-PC-15 Transcribed By: ANA 08/17/231713 Dictated By: Rodriguez Palma Jr, 08/17/231711 Signed By: 08/17/231713 Normal [facility] Anisocytosis [Presence] in B lood by Light microscopyOrdered By: Bhavesh Cristobal on 07-14-2023 Anisocytosis Ql (Bld) Marked Normal [facility] Comment on above: Performed By: #### C BCMIGUEL, BMP #### [address] Automated basophil %Ordered By: Bhavesh Cristobal on 07-14-2023 Basophils/100 WBC (Bld) 0.3 % Normal . [facility] Comment on above: Performed By: #### C YUSRA, BMP #### [address] Automated basophil countOrde red By: Bhavesh Cristobal on 07-14-2023 Basophils (Bld) [#/Vol] 0.1 10*3/uL Normal 0.0-0.2 [facility] Comment on above: Result Comment: PERF ORMED BY: [place] [address] PATHOLOGIST [employer] JORGE MURRELL M.D. Performed By: #### C BCMIGUEL, BMP #### [address] Automated blood monocyte cou ntOrdered By: Bhavesh Cristobal on 07-14-2023 Monocytes (Bld) [#/Vol] 1.4 10*3/uL High 0.0-0.8 [facility] Comment on above: Performed By: #### C BCNO, BMP #### [address] Automated eosinophil %Ordere d By: Bhavesh Cristobal on 07-14-2023 Eosinophils/100 WBC (Bld) 0.4 % Normal . [facility] Comment on above: Performed By: #### C BCNO, BMP #### [address] Automated eosinophil countOr dered By: Bhavesh Cristobal on 07-14-2023 Eosinophils (Bld) [#/Vol] 0.1 10*3/uL Normal 0.0-0.45 [facility] Comment on above: Performed By: #### C YUSRA, BMP #### [address] Automated monocyte %Ordered By: Bhavesh Cristobal on 07-14-2023 Monocytes/100 WBC (Bld) 7.3 % Normal . [facility] Comment on above: Performed By: #### C BCMIGUEL, BMP #### [facility] [address] Automated neutrophil %Ordere d By: Bhavesh Cristobal on 07-14-2023 Neutrophils/100 WBC (Bld) 69.9 % Normal . [facility] Comment on above: Performed By: #### C YUSRA, BMP #### [address] Basic Metabolic Panelon 06-28 Creatinine Clr Calc Pharmacy 42.83 Normal [facility] Comment on above: Result Comment: PERF ORMED BY: [place] [address] PATHOLOGIST [employer] JORGE MURRELL M.D. Performed By: #### C BCMIGUEL, BMP #### [address] GFR/1.73 sq M.predicted MDRD (S/P/Bld) [Vol rate/Area] 51.753 mL/min/{1.73_m2} Normal [facility] Comment on above: Performed By: #### C BCNO, BMP #### [address] Calcium [Mass/volume] in Ser um or PlasmaOrdered By: Bhavesh Cristobal on 07-14-2023 Calcium [Mass/Vol] 8.0 mg/dL Low 8.6-10.3 [facility] Comment on above: Performed By: #### C BCMIGUEL, BMP #### [address] [address] [place] Capillary blood glucose roly urement by glucometer (mass/volume)Ordered By: Jolanta Mckenzie on 07-14-2023 Glucose [Mass/Vol] 80 mg/dL Normal [facility] Comment on above: Random Glucose Refer ence Range is dependent on time and content of last meal. Glucose of more than 200 mg/dL in a nonstressed, ambulatory subject supports the diagnosis of Diabetes Mellitus. Result Comment: [place] om Glucose Reference Range is dependent on time and content of last meal. Glucose of more than 200 mg/dL in a nonstressed, ambulatory subject supports the diagnosis of Diabetes Mellitus. PERFORMED BY: [place] [address] PATHOLOGIST [employer] JORGE MURRELL M.D. Performed By: #### A ERC #### [address] Carbon dioxide, total [Moles /volume] in Serum or PlasmaOrdered By: Bhavesh Cristobal on 07-14-2023 CO2 [Moles/Vol] 28.1 mmol/L Normal 21.0-31.0 [facility] Comment on above: Performed By: #### C YUSRA, BMP #### [address] Chloride [Moles/volume] in S kaveh or PlasmaOrdered By: Bhavesh Cristobal on 07-14-2023 Chloride [Moles/Vol] 110 mmol/L High 98-107 [facility] Comment on above: Performed By: #### C YUSRA, BMP #### [address] Creatinine [Mass/volume] in Serum or PlasmaOrdered By: Bhavesh Cristobal on 07-14-2023 Creatinine [Mass/Vol] 1.10 mg/dL Normal 0.60-1.20 [facility] Comment on above: Performed By: #### C YUSRA, BMP #### [address] Erythrocyte distribution wid th [Ratio] by Automated countOrdered By: Bhavesh Cristobal on 07-14-2023 Erythrocyte distribution width (RBC) [Ratio] 22.8 % High 11.9-15.3 [facility] Comment on above: Performed By: #### C SANTOSH MENG #### [facility] [address] Erythrocytes [#/volume] in B lood by Automated countOrdered By: Bhavesh Cristobal on 07-14-2023 RBC (Bld) [#/Vol] 4.00 10*6/uL Normal 3.60-5.00 [facility] Comment on above: Performed By: #### C YUSRA, SANTOSH #### [facility] [address] Glucose Poct Glucometerson 0 07-14-2023 Glucose [Mass/Vol] 97 mg/dL Normal [facility] Comment on above: Result Comment: [place] om Glucose Reference Range is dependent on time and content of last meal. Glucose of more than 200 mg/dL in a nonstressed, ambulatory subject supports the diagnosis of Diabetes Mellitus. PERFORMED BY: [place] [address] PATHOLOGIST [employer] JORGE MURRELL M.D. Performed By: #### A ERC #### [address] Glucose [Mass/volume] in Ser um or PlasmaOrdered By: Bhavesh Cristobal on 07-14-2023 Glucose [Mass/Vol] 84 mg/dL Normal 70-100 [facility] Comment on above: ADA recommended refe rence rangeRandom Glucose Reference Range is dependent on time and content of last meal. Glucose of more than 200 mg/dL in a nonstressed, ambulatory subject supports the diagnosis of Diabetes Mellitus. Result Comment: [place] om Glucose Reference Range is dependent on time and content of last meal. Glucose of more than 200 mg/dL in a nonstressed, ambulatory subject supports the diagnosis of Diabetes Mellitus. ADA recommended reference range Performed By: #### C YUSRA, SANTOSH #### [facility] [address] [place] [address] [place] Hematocrit [Volume Fraction] of Blood by Automated countOrdered By: Bhavesh Cristobal on 07-14-2023 Hematocrit (Bld) [Volume fraction] 33.6 % Low 34.0-46.4 [facility] Comment on above: Performed By: #### C YUSRA, SANTOSH #### [address] Hemoglobin [Mass/volume] in BloodOrdered By: Bhavesh Cristobal on 07-14-2023 Hemoglobin (Bld) [Mass/Vol] 10.5 g/dL Low 11.8-15.4 [facility] Comment on above: Performed By: #### C YUSRA, SANTOSH #### [address] Hypochromia LM Ql (Bld)Order ed By: Bhavesh Cristobal on 07-14-2023 Hypochromia Ql (Bld) Slight [facility] Leukocytes [#/volume] correc juma for nucleated erythrocytes in Blood by Automated counOrdered By: Bhavesh Cristobal on 07-14-2023 WBC corrected for nucl RBC Auto (Bld) [#/Vol] 19.3 10*3/uL 3.8-11.6 [facility] Leukocytes [#/volume] in Blo od by Automated countOrdered By: Bhavesh Cristobal on 07-14-2023 WBC (Bld) [#/Vol] 19.3 10*3/uL High 3.8-11.6 [facility] Comment on above: Performed By: #### C YUSRA, SANTOSH #### [facility] [address] [place] [address] [place] Lymphocytes [#/volume] in Bl ood by Automated countOrdered By: Bhavesh Cristobal on 07-14-2023 Lymphocytes (Bld) [#/Vol] 4.3 10*3/uL Normal 1.00-4.8 [facility] Comment on above: Performed By: #### C YUSRA, BMP #### [place] [address] [place] Lymphocytes/100 leukocytes i n Blood by Automated countOrdered By: Bhavesh Cristobal on 07-14-2023 Lymphocytes/100 WBC (Bld) 22.1 % Normal . [facility] Comment on above: Performed By: #### C YUSRA, BMP #### [facility] [address] [place] [address] MCH [Entitic mass] by Automa juma countOrdered By: Bhvaesh Cristobal on 07-14-2023 MCH (RBC) [Entitic mass] 26.2 pg Normal 24.7-34.3 [facility] Comment on above: Performed By: #### C YUSRA, BMP #### [address] MCHC Auto (RBC) [Mass/Vol]Or dered By: Bhavesh Cristobal on 07-14-2023 MCHC (RBC) [Mass/Vol] 31.2 g/dL 32.0-35.0 [facility] MCV [Entitic volume] by Auto mated countOrdered By: Bhavesh Cristobal on 07-14-2023 MCV (RBC) [Entitic vol] 84.0 fL Normal 80-100 [facility] Comment on above: Performed By: #### C YUSRA, BMP #### [address] Neutrophils [#/volume] in Bl ood by Automated countOrdered By: Bhavesh Cristobal on 07-14-2023 Neutrophils (Bld) [#/Vol] 13.5 10*3/uL High 1.8-7.7 [facility] Comment on above: Performed By: #### C YUSRA, BMP #### [facility] [address] [place] [address] No Panel InformationOrdered By: Bhavesh Cristobal on 07-14-2023 Estimated GFR (CKD-EPI) 51.753 mL/Min [facility] Creatinine Clearance (Chem 42.83 [facility] Nucleated erythrocytes [Pres ence] in Blood by Automated countOrdered By: Bhavesh Cristobal on 07-14-2023 Nucleated RBC Auto Ql (Bld) 0.1 /100{WBC} 0-0.5 [facility] Platelet adequacy [Presence] in Blood by Light microscopyOrdered By: Bhavesh Cristobal on 07-14-2023 Platelets LM Ql (Bld) Normal Normal [facility] Platelet mean volume [Entiti c volume] in Blood by Automated countOrdered By: Bhavesh Cristobal on 07-14-2023 Platelet mean volume (Bld) [Entitic vol] 7.9 fL Normal 6.3-10.7 [facility] Comment on above: Performed By: #### C YUSRA, BMP #### [address] Platelet morphology finding [Identifier] in BloodOrdered By: Bhavesh Cristobal on 07-14-2023 Platelet morphology finding Nom (Bld) Normal Normal [facility] Platelets [#/volume] in Bloo d by Automated countOrdered By: Bhavesh Cristobal on 07-14-2023 Platelets (Bld) [#/Vol] 238 10*3/uL Normal 150-450 [facility] Comment on above: Performed By: #### C YUSRA, BMP #### [address] Polychromasia [Presence] in Blood by Light microscopyOrdered By: Bhavesh Cristobal on 07-14-2023 Polychromasia LM Ql (Bld) Slight [facility] Potassium [Moles/volume] in Serum or PlasmaOrdered By: Bhavesh Cristobal on 07-14-2023 Potassium [Moles/Vol] 4.2 mmol/L Normal 3.5-5.1 [facility] Comment on above: Performed By: #### C YUSRA, BMP #### [address] RBC morphologyOrdered By: Wilber Cristobal on 07-14-2023 RBC morphology finding Nom (Bld) N/A [facility] Scan and CBCon 07-14-2023 Hypochromasia Slight Normal [facility] Comment on above: Performed By: #### C YUSRA, BMP #### [address] Mean Corpuscular HGB Conc 31.2 g/dL Low 32.0-35.0 [facility] Comment on above: Performed By: #### C YUSRA, BMP #### [address] NRBC% 0.1 /100{WBC} Normal 0-0.5 [facility] Comment on above: Performed By: #### C YUSRA, BMP #### [address] Platelet Estimate Normal Normal Normal [facility] Comment on above: Performed By: #### C BCMIGUEL, BMP #### [address] Platelet Morphology Normal Normal Normal [facility] Comment on above: Result Comment: PERF ORMED BY: [place] [address] PATHOLOGIST [employer] JORGE MURRELL M.D. Performed By: #### C YUSRA, BMP #### [address] Polychromasia Slight Normal [facility] Comment on above: Performed By: #### C YUSRA, BMP #### [address] Serum or plasma anion gap de terminationOrdered By: Bhavesh Cristobal on 07-14-2023 Anion gap [Moles/Vol] 9.1 mmol/L Normal 6.0-15.0 [facility] Comment on above: Performed By: #### C YUSRA, BMP #### [place] [address] [place] Sodium [Moles/volume] in Ser um or PlasmaOrdered By: Bhavesh Cristobal on 07-14-2023 Sodium [Moles/Vol] 143 mmol/L Normal 136-145 [facility] Comment on above: Performed By: #### C BCMIGUEL, BMP #### [address] Urea nitrogen [Mass/volume] in Serum or PlasmaOrdered By: Bhavesh Cristobal on 07-14-2023 Urea nitrogen [Mass/Vol] 24 mg/dL Normal 7-25 [facility] [facility] Comment on above: Performed By: #### C BCMIGUEL, BMP #### [address] Basic Metabolic Panelon 06-28 Anion gap [Moles/Vol] 9.9 mmol/L Normal 6.0-15.0 [facility] Comment on above: Performed By: #### L ACTIC CUBLD #### [address] Calcium [Mass/Vol] 7.8 mg/dL Low 8.6-10.3 [facility] Comment on above: Performed By: #### L ACTDOC HERRERALD #### [address] Chloride [Moles/Vol] 113 mmol/L High 98-107 [facility] Comment on above: Performed By: #### L ACTANEGL HERRERA #### [address] CO2 [Moles/Vol] 25.8 mmol/L Normal 21.0-31.0 [facility] Comment on above: Performed By: #### L ACTDOC HERRERALD #### [address] Creatinine [Mass/Vol] 0.94 mg/dL Normal 0.60-1.20 [facility] Comment on above: Performed By: #### L ACTDOC HERRERALD #### [place] [address] [place] Creatinine Clr Calc Pharmacy 50.18 Normal [facility] Comment on above: Result Comment: PERF ORMED BY: [place] [id number] PATHOLOGIST [employer] JORGE MURRELL M.D. Performed By: #### L ACTDOC HERRERALD #### [place] [address] [place] GFR/1.73 sq M.predicted MDRD (S/P/Bld) [Vol rate/Area] mL/min/{1.73_m2} Normal [facility] Comment on above: Performed By: #### L ACTDOC HERRERALD #### [address] Glucose [Mass/Vol] 69 mg/dL Low 70-100 [facility] Comment on above: Result Comment: [place] Glucose Reference Range is dependent on time and content of last meal. Glucose of more than 200 mg/dL in a nonstressed, ambulatory subject supports the diagnosis of Diabetes Mellitus. ADA recommended reference range Performed By: #### L ANGEL REES #### [address] Potassium [Moles/Vol] 3.7 mmol/L Normal 3.5-5.1 [facility] Comment on above: Performed By: #### L ANGEL REES #### [address] Sodium [Moles/Vol] 145 mmol/L Normal 136-145 [facility] Comment on above: Performed By: #### L ANGEL REES #### [address] Urea nitrogen [Mass/Vol] 23 mg/dL Normal 7-25 [facility] Comment on above: Performed By: #### L ANGEL REES #### [address] Complete Blood Count Auto Di ffon 07-13-2023 Basophils (Bld) [#/Vol] 0.0 10*3/uL Normal 0.0-0.2 [facility] Comment on above: Result Comment: PERF ORMED BY: [place] [address] PATHOLOGIST [employer] JORGE MURRELL M.D. Performed By: #### L ANGEL REES #### [place] [address] [place] Basophils/100 WBC (Bld) 0.1 % Normal . [facility] Comment on above: Performed By: #### L ANGEL REES #### [place] [address] [place] Eosinophils (Bld) [#/Vol] 0.1 10*3/uL Normal 0.0-0.45 [facility] Comment on above: Performed By: #### L ACTANGEL HERRERA #### [address] Eosinophils/100 WBC (Bld) 0.3 % Normal . [facility] Comment on above: Performed By: #### L ACTDOC HERRERALD #### [address] Erythrocyte distribution width (RBC) [Ratio] 23.1 % High 11.9-15.3 [facility] Comment on above: Performed By: #### L ACTDOC HERRERALD #### [address] Hematocrit (Bld) [Volume fraction] 32.7 % Low 34.0-46.4 [facility] Comment on above: Performed By: #### L ACTANGEL HERRERA #### [address] Hemoglobin (Bld) [Mass/Vol] 10.4 g/dL Low 11.8-15.4 [facility] Comment on above: Performed By: #### L ACTANGEL HERRERA #### [address] Lymphocytes (Bld) [#/Vol] 5.0 10*3/uL High 1.00-4.8 [facility] Comment on above: Performed By: #### L ACTDOC HERRERALD #### [address] Lymphocytes/100 WBC (Bld) 23.0 % Normal . [facility] Comment on above: Performed By: #### L ACTDOC HERRERALD #### [address] MCH (RBC) [Entitic mass] 26.4 pg Normal 24.7-34.3 [facility] Comment on above: Performed By: #### L ACTDOC HERRERALD #### [address] MCV (RBC) [Entitic vol] 83.1 fL Normal 80-100 [facility] Comment on above: Performed By: #### L ANGEL REES #### [address] Mean Corpuscular HGB Conc 31.8 g/dL Low 32.0-35.0 [facility] Comment on above: Performed By: #### L ANGEL REES #### [address] Monocytes (Bld) [#/Vol] 1.4 10*3/uL High 0.0-0.8 [facility] Comment on above: Performed By: #### L ANGEL REES #### [address] Monocytes/100 WBC (Bld) 6.7 % Normal . [facility] Comment on above: Performed By: #### L ANGEL REES #### [address] Neutrophils (Bld) [#/Vol] 15.2 10*3/uL High 1.8-7.7 [facility] Comment on above: Performed By: #### L ANGEL REES #### [address] Neutrophils/100 WBC (Bld) 69.9 % Normal . [facility] Comment on above: Performed By: #### L ANGEL REES #### [address] NRBC% 0.3 /100{WBC} Normal 0-0.5 [facility] Comment on above: Performed By: #### L ANGEL REES #### [address] Platelet mean volume (Bld) [Entitic vol] 7.8 fL Normal 6.3-10.7 [facility] Comment on above: Performed By: #### L ANGEL REES #### [address] Platelets (Bld) [#/Vol] 212 10*3/uL Normal 150-450 [facility] Comment on above: Performed By: #### L ANGEL REES #### [address] RBC (Bld) [#/Vol] 3.93 10*6/uL Normal 3.60-5.00 [facility] Comment on above: Performed By: #### L ANGEL REES #### [address] WBC (Bld) [#/Vol] 21.7 10*3/uL High 3.8-11.6 [facility] Comment on above: Performed By: #### L ANGEL REES #### [address] Glucose Poct Glucometerson 0 07-13-2023 Glucose [Mass/Vol] 200 mg/dL Normal [facility] Comment on above: Result Comment: [facility] Glucose Reference Range is dependent on time and content of last meal. Glucose of more than 200 mg/dL in a nonstressed, ambulatory subject supports the diagnosis of Diabetes Mellitus. PERFORMED BY: [place] [address] PATHOLOGIST [employer] JORGE MURRELL M.D. Performed By: #### A ERC #### [address] Alanine aminotransferase [En zymatic activity/volume] in Serum or PlasmaOrdered By: Jolanta Mckenzie on 07-12-2023 ALT [Catalytic activity/Vol] 16 U/L Normal 7-52 [facility] Comment on above: Performed By: #### A ERC #### [place] [address] [place] Albumin [Mass/volume] in Ser um or Plasma by Bromocresol green (BCG) dye binding methoOrdered By: Jolanta Mckenzie on 07-12-2023 Albumin BCG dye [Mass/Vol] 3.0 g/dL 3.5-5.7 [facility] Alkaline phosphatase [Enzyma tic activity/volume] in Serum or PlasmaOrdered By: Jolanta Mckenzie on 07-12-2023 ALP [Catalytic activity/Vol] 45 U/L Normal 34-104 [facility] Comment on above: Performed By: #### A ERC #### [address] Aspartate aminotransferase [ Enzymatic activity/volume] in Serum or PlasmaOrdered By: Jolanta Mckenzie on 07-12-2023 AST [Catalytic activity/Vol] 14 U/L Normal 13-39 [facility] Comment on above: Result Comment: PERF ORMED BY: [place] [address] PATHOLOGIST [employer] JORGE MURRELL M.D. Performed By: #### L ACTIC, DOCLD #### [address] Bilirubin.total [Mass/volume ] in Serum or PlasmaOrdered By: Jolanta Mckenzie on 07-12-2023 Bilirubin [Mass/Vol] 0.3 mg/dL Normal 0.3-1.0 [facility] Comment on above: Performed By: #### A ERC #### [address] abdomen pelvis w conon CT abdomen pelvis w con [facility] [address] [place] [address] CT Scan Report Signed Patient: Gera Perdue MR#: [id number] : 1945 Acct:[id number] Age/Sex: 77 / F ADM Date: 07/10/23 Loc: Room: [address] [place] [address] Type: ADM IN Attending Dr: Jolanta Mckenzie MD Copies to: Jolanta Mckenzie MD Ordering Provider: Jolanta Mckenzie MD Date of Service: 07/12/23 CT/CT abdomen pelvis w con: leukocytosis with abdominal pain CT ABDOMEN AND PELVIS WITH CONTRAST COMPARISON: 12/26/2022 CLINICAL DATA: Generalized abdominal pain and leukocytosis. Spiral images were obtained through the abdomen and pelvis following oral and 90 mL of Isovue-300. This CT exam was performed using one or more following dose reduction techniques: Automated exposure control, adjustment of the mA and/or kV according to patient size, or use of iterative reconstruction technique. Limited cuts through the lung bases show a trace amount of pleural fluid on the left. There is also atelectasis, greatest at the posterior costophrenic angles. The gallbladder is surgically absent. The liver, spleen, pancreas and adrenal glands show no acute findings. There are symmetric renal nephrograms, without hydronephrosis. There is cortical scarring on the left where there is also still a calcification in this area. There is prominent atherosclerotic plaque involving the aorta, iliac and visceral arteries. There are no enlarged lymph nodes or ascites. There are upper abdominal ventral and umbilical hernias containing fat. There is a larger left lower abdominal wall hernia in the periumbilical region which contains nondistended small bowel and distal transverse colon. The intra-abdominal small bowel loops are normal caliber. There is a large amount of stool along the colon. There is slight levoscoliotic curvature and degenerative changes at the spine Images through the pelvis show no dilated small bowel. No appendiceal inflammation is seen. There is a sigmoid anastomosis. There is stool within the colon. No diverticular disease is noted. The uterus is levoverted. No bladder abnormalities are seen. There is a dynamic hip screw on the left. There is mild degenerative change at the SI joints. CT/CT abdomen pelvis w con IMPRESSION: MILD BIBASILAR PARENCHYMAL CHANGE AND TRACE AMOUNT OF PLEURAL FLUID ON THE LEFT. MODERATE ATHEROSCLEROTIC DISEASE. NO BOWEL OR URINARY TRACT OBSTRUCTION. LEFT RENAL CORTICAL SCARRING AND STABLE CALCIFICATION. MULTIPLE VENTRAL HERNIAS WITH THE LARGEST AT THE LEFT LOWER ABDOMEN CONTAINING NONDISTENDED SMALL BOWEL AND COLON. INCREASED COLONIC STOOL. NO OTHER ACUTE FINDINGS. Impression dictated by: Camille Cevallos M.D.07/12/2023 5:22 PM Dictation Location: [place] [address] Transcribed By: [facility] 07/12/23 172 Dictated By: Camille Cevallos MD 07/12/23 171 Signed By: 07/12/23 172 Normal [facility] Complete Blood Count Auto Di ffon 07-12-2023 Basophils (Bld) [#/Vol] 0.0 10*3/uL Normal 0.0-0.2 [facility] Comment on above: Result Comment: PERF ORMED BY: [place] [address] PATHOLOGIST [employer] JORGE MURRELL M.D. Performed By: #### A ERC #### [address] Basophils/100 WBC (Bld) 0.1 % Normal . [facility] Comment on above: Performed By: #### A ERC #### [address] Eosinophils (Bld) [#/Vol] 0.0 10*3/uL Normal 0.0-0.45 [facility] Comment on above: Performed By: #### A ERC #### [address] Eosinophils/100 WBC (Bld) 0.0 % Normal . [facility] Comment on above: Performed By: #### A ERC #### [address] Erythrocyte distribution width (RBC) [Ratio] 22.4 % High 11.9-15.3 [facility] Comment on above: Performed By: #### A ERC #### [address] Hematocrit (Bld) [Volume fraction] 32.7 % Low 34.0-46.4 [facility] Comment on above: Performed By: #### A ERC #### [address] Hemoglobin (Bld) [Mass/Vol] 10.4 g/dL Low 11.8-15.4 [facility] Comment on above: Performed By: #### A ERC #### [address] Lymphocytes (Bld) [#/Vol] 1.7 10*3/uL Normal 1.00-4.8 [facility] Comment on above: Performed By: #### A ERC #### [address] Lymphocytes/100 WBC (Bld) 7.7 % Normal . [facility] Comment on above: Performed By: #### A ERC #### [address] MCH (RBC) [Entitic mass] 26.2 pg Normal 24.7-34.3 [facility] Comment on above: Performed By: #### A ERC #### [address] MCV (RBC) [Entitic vol] 82.1 fL Normal 80-100 [facility] Comment on above: Performed By: #### A ERC #### [address] Mean Corpuscular HGB Conc 31.9 g/dL Low 32.0-35.0 [facility] Comment on above: Performed By: #### A ERC #### [address] Monocytes (Bld) [#/Vol] 0.8 10*3/uL Normal 0.0-0.8 [facility] Comment on above: Performed By: #### A ERC #### [address] Monocytes/100 WBC (Bld) 3.6 % Normal . [facility] Comment on above: Performed By: #### A ERC #### [address] Neutrophils (Bld) [#/Vol] 19.4 10*3/uL High 1.8-7.7 [facility] Comment on above: Performed By: #### A ERC #### [address] Neutrophils/100 WBC (Bld) 88.6 % Normal . [facility] Comment on above: Performed By: #### A ERC #### [address] NRBC% 0.1 /100{WBC} Normal 0-0.5 [facility] Comment on above: Performed By: #### A ERC #### [facility] [address] [place] [id number] [facility] Platelet mean volume (Bld) [Entitic vol] 7.9 fL Normal 6.3-10.7 [facility] Comment on above: Performed By: #### A ERC #### [facility] [address] Platelets (Bld) [#/Vol] 243 10*3/uL Normal 150-450 [facility] Comment on above: Performed By: #### A ERC #### [address] RBC (Bld) [#/Vol] 3.98 10*6/uL Normal 3.60-5.00 [facility] Comment on above: Performed By: #### A ERC #### [address] WBC (Bld) [#/Vol] 21.9 10*3/uL High 3.8-11.6 [facility] Comment on above: Performed By: #### A ERC #### [address] Comprehensive Metabolic Pane harsha 07-12-2023 Albumin [Mass/Vol] 3.0 g/dL Low 3.5-5.7 [facility] Comment on above: Performed By: #### A ERC #### [address] Anion gap [Moles/Vol] Not performed Normal 6.0-15.0 [facility] Comment on above: Performed By: #### A ERC #### [address] Aspartate Amino Transferase Normal 13-39 [facility] Comment on above: Result Comment: Spec imen hemolyzed, redraw requested-Notified Lavonne Melgar @ 0844. MLG Performed By: #### A ERC #### [place] [id number] [facility] Calcium [Mass/Vol] 8.0 mg/dL Low 8.6-10.3 [facility] Comment on above: Performed By: #### A ERC #### [address] Chloride [Moles/Vol] 112 mmol/L High 98-107 [facility] Comment on above: Performed By: #### A ERC #### [address] CO2 [Moles/Vol] 26.1 mmol/L Normal 21.0-31.0 [facility] Comment on above: Performed By: #### A ERC #### [address] Creatinine [Mass/Vol] 1.04 mg/dL Normal 0.60-1.20 [facility] Comment on above: Performed By: #### A ERC #### [address] Creatinine Clr Calc Pharmacy 44.87 Normal [facility] Comment on above: Result Comment: PERF ORMED BY: [place] [address] PATHOLOGIST [employer] JORGE MURRELL M.D. Performed By: #### A ERC #### [address] GFR/1.73 sq M.predicted MDRD (S/P/Bld) [Vol rate/Area] 55.356 mL/min/{1.73_m2} Normal [facility] Comment on above: Performed By: #### A ERC #### [address] Glucose [Mass/Vol] 159 mg/dL High 70-100 [facility] Comment on above: Result Comment: [place] Glucose Reference Range is dependent on time and content of last meal. Glucose of more than 200 mg/dL in a nonstressed, ambulatory subject supports the diagnosis of Diabetes Mellitus. ADA recommended reference range Performed By: #### A ERC #### [address] Potassium Normal 3.5-5.1 [facility] Comment on above: Result Comment: Spec imen hemolyzed, redraw requested-Notified Lavonne Melgar @ 0844. MLG Performed By: #### A ERC #### [address] Sodium [Moles/Vol] 143 mmol/L Normal 136-145 [facility] Comment on above: Performed By: #### A ERC #### [address] Urea nitrogen [Mass/Vol] 27 mg/dL High 7-25 [facility] Comment on above: Performed By: #### A ERC #### [address] Protein [Mass/volume] in Ser um or PlasmaOrdered By: Jolanta Mckenzie on 07-12-2023 Protein [Mass/Vol] 5.7 g/dL Low 6.4-8.9 [facility] Comment on above: Performed By: #### A ERC #### [address] Redraw Potassiumon 3 Potassium [Moles/Vol] 4.2 mmol/L Normal 3.5-5.1 [facility] Comment on above: Performed By: #### L ANGEL REES #### [address] Serum globulin measurement b y calculation (mass/volume)Ordered By: Jolanta Mckenzie on 07-12-2023 Globulin (S) [Mass/Vol] 2.7 g/dL [facility] Comment on above: Performed By: #### A ERC #### [address] Serum or plasma albumin/glob ulin mass ratioOrdered By: Jolanta Mckenzie on 07-12-2023 Albumin/Globulin [Mass ratio] 1.1 {ratio} [facility] Comment on above: Performed By: #### A ERC #### [address] Basic Metabolic Panelon 06-28 Anion gap [Moles/Vol] 10.0 mmol/L Normal 6.0-15.0 [facility] Comment on above: Performed By: #### A ERC #### [facility] [address] Calcium [Mass/Vol] 8.0 mg/dL Low 8.6-10.3 [facility] Comment on above: Performed By: #### A ERC #### [facility] [address] Chloride [Moles/Vol] 110 mmol/L High 98-107 [facility] Comment on above: Performed By: #### A ERC #### [address] CO2 [Moles/Vol] 28.1 mmol/L Normal 21.0-31.0 [facility] Comment on above: Performed By: #### A ERC #### [address] Creatinine [Mass/Vol] 1.32 mg/dL High 0.60-1.20 [facility] Comment on above: Performed By: #### A ERC #### [address] Creatinine Clr Calc Pharmacy 34.74 Normal [facility] Comment on above: Result Comment: PERF ORMED BY: [place] [address] PATHOLOGIST [employer] JORGE MURRELL M.D. Performed By: #### A ERC #### [address] GFR/1.73 sq M.predicted MDRD (S/P/Bld) [Vol rate/Area] 41.583 mL/min/{1.73_m2} Normal [facility] Comment on above: Performed By: #### A ERC #### [address] Glucose [Mass/Vol] 125 mg/dL High 70-100 [facility] Comment on above: Result Comment: [place] Glucose Reference Range is dependent on time and content of last meal. Glucose of more than 200 mg/dL in a nonstressed, ambulatory subject supports the diagnosis of Diabetes Mellitus. ADA recommended reference range Performed By: #### A ERC #### [address] Potassium [Moles/Vol] 4.1 mmol/L Normal 3.5-5.1 [facility] Comment on above: Performed By: #### A ERC #### [address] Sodium [Moles/Vol] 144 mmol/L Normal 136-145 [facility] Comment on above: Performed By: #### A ERC #### [address] Urea nitrogen [Mass/Vol] 27 mg/dL High 7-25 [facility] Comment on above: Performed By: #### A ERC #### [address] Complete Blood Count Auto Di ffon 07-11-2023 Basophils (Bld) [#/Vol] 0.0 10*3/uL Normal 0.0-0.2 [facility] Comment on above: Result Comment: PERF ORMED BY: [place] [address] PATHOLOGIST [employer] JORGE MURRELL M.D. Performed By: #### A ERC #### [address] Basophils/100 WBC (Bld) 0.0 % Normal . [facility] Comment on above: Performed By: #### A ERC #### [address] Eosinophils (Bld) [#/Vol] 0.0 10*3/uL Normal 0.0-0.45 [facility] Comment on above: Performed By: #### A ERC #### [address] Eosinophils/100 WBC (Bld) 0.0 % Normal . [facility] Comment on above: Performed By: #### A ERC #### [address] Erythrocyte distribution width (RBC) [Ratio] 21.7 % High 11.9-15.3 [facility] Comment on above: Performed By: #### A ERC #### [address] Hematocrit (Bld) [Volume fraction] 31.2 % Low 34.0-46.4 [facility] Comment on above: Performed By: #### A ERC #### [address] Hemoglobin (Bld) [Mass/Vol] 10.1 g/dL Low 11.8-15.4 [facility] Comment on above: Performed By: #### A ERC #### [address] Lymphocytes (Bld) [#/Vol] 1.5 10*3/uL Normal 1.00-4.8 [facility] Comment on above: Performed By: #### A ERC #### [address] Lymphocytes/100 WBC (Bld) 9.5 % Normal . [facility] Comment on above: Performed By: #### A ERC #### [address] MCH (RBC) [Entitic mass] 26.3 pg Normal 24.7-34.3 [facility] Comment on above: Performed By: #### A ERC #### [address] MCV (RBC) [Entitic vol] 81.3 fL Normal 80-100 [facility] Comment on above: Performed By: #### A ERC #### [address] Mean Corpuscular HGB Conc 32.3 g/dL Normal 32.0-35.0 [facility] Comment on above: Performed By: #### A ERC #### [address] Monocytes (Bld) [#/Vol] 0.4 10*3/uL Normal 0.0-0.8 [facility] Comment on above: Performed By: #### A ERC #### [facility] [address] [place] [address] [place] Monocytes/100 WBC (Bld) 2.6 % Normal . [facility] Comment on above: Performed By: #### A ERC #### [place] [address] [place] Neutrophils (Bld) [#/Vol] 13.8 10*3/uL High 1.8-7.7 [facility] Comment on above: Performed By: #### A ERC #### [address] Neutrophils/100 WBC (Bld) 87.9 % Normal . [facility] Comment on above: Performed By: #### A ERC #### [address] NRBC% 0.0 /100{WBC} Normal 0-0.5 [facility] Comment on above: Performed By: #### A ERC #### [address] Platelet mean volume (Bld) [Entitic vol] 7.8 fL Normal 6.3-10.7 [facility] Comment on above: Performed By: #### A ERC #### [place] [address] [place] Platelets (Bld) [#/Vol] 208 10*3/uL Normal 150-450 [facility] Comment on above: Performed By: #### A ERC #### [place] [address] [place] RBC (Bld) [#/Vol] 3.84 10*6/uL Normal 3.60-5.00 [facility] Comment on above: Performed By: #### A ERC #### [address] WBC (Bld) [#/Vol] 15.7 10*3/uL High 3.8-11.6 [facility] Comment on above: Performed By: #### A ERC #### [address] Acanthocytes [Presence] in B lood by Light microscopyOrdered By: Marshall Dominguez on 07-10-2023 Acanthocytes LM Ql (Bld) Slight [facility] Aerobic Cultureon 07-10-2023 Aerobic Culture Result Tab Codes Moderate Normal Respiratory Kimberly 2 Days Gram Stain Result 1+ Gram Positive Cocci Rare Epithelial Cells 1+ White Blood Cells PERFORMED BY: [place] [address] PATHOLOGIST [employer] JORGE MURRELL M.D. Normal [facility] Comment on above: Performed By: #### C BCNO, BMP #### [address] Aerobic cultureOrdered By: Viki Mckenzie on 07-10-2023 Bacteria identified Aer cx Nom (Unsp spec) [facility] Anisocytosis [Presence] in B lood by Light microscopyOrdered By: Marshall Dominguez on 07-10-2023 Anisocytosis Ql (Bld) Moderate Normal [facility] Comment on above: Performed By: #### L ANGEL REES #### [address] Automated basophil %Ordered By: Marshall Dominguez on 07-10-2023 Basophils/100 WBC (Bld) 0.2 % Normal . [facility] Comment on above: Performed By: #### L ANGEL REES #### [address] Automated basophil countOrde red By: Marshall Dominguez on 07-10-2023 Basophils (Bld) [#/Vol] 0.0 10*3/uL Normal 0.0-0.2 [facility] Comment on above: Performed By: #### L ANGEL REES #### [address] Automated blood monocyte cou ntOrdered By: Marshall Dominguez on 07-10-2023 Monocytes (Bld) [#/Vol] 1.4 10*3/uL High 0.0-0.8 [facility] Comment on above: Performed By: #### L ANGEL REES #### [address] Automated eosinophil %Ordere d By: Marshall Dominguez on 07-10-2023 Eosinophils/100 WBC (Bld) 0.4 % Normal . [facility] Comment on above: Performed By: #### L ANGEL REES #### [address] Automated eosinophil countOr dered By: Marshall Dominguez on 07-10-2023 Eosinophils (Bld) [#/Vol] 0.1 10*3/uL Normal 0.0-0.45 [facility] Comment on above: Performed By: #### L ANGEL REES #### [address] Automated erythrocytes count in urine sediment (number/area)Ordered By: Marshall Dominguez on 07-10-2023 RBC Auto (Urine sed) [#/Area] 3-4 [HPF] 0-4 [facility] Automated leukocytes count i n urine sediment (number/area)Ordered By: Marshall Dominguez on 07-10-2023 WBC Auto (Urine sed) [#/Area] Innumerable [HPF] 0-4 [facility] Automated monocyte %Ordered By: Marshall Dominguez on 07-10-2023 Monocytes/100 WBC (Bld) 6.5 % Normal . [facility] Comment on above: Performed By: #### L ANGEL REES #### [address] Automated neutrophil %Ordere d By: Marshall Dominguez on 07-10-2023 Neutrophils/100 WBC (Bld) 61.4 % Normal . [facility] Comment on above: Performed By: #### L ANGEL REES #### [address] Automated urine color determ inationOrdered By: Marshall Dominguez on 07-10-2023 Color (U) Yellow Normal [facility] Comment on above: Order Comment: Name Collection Type:: Clean-Voided Midstream Performed By: #### L ANGEL REES #### [facility] [address] [place] [address] [facility] BNP ser/plasOrdered By: Marshall Dominguez on 07-10-2023 Natriuretic peptide B (Bld) [Mass/Vol] 54.0 pg/mL Normal 5-100 [facility] Comment on above: Result Comment: PERF ORMED BY: [place] [address] PATHOLOGIST [employer] JORGE MURRELL M.D. Performed By: #### L ANGEL REES #### [address] [address] [facility] Bacterial blood cultureOrder ed By: Marshall Dominguez on 07-10-2023 Bacteria identified Cx Nom (Bld) NO GROWTH 5 DAYS [facility] Basic Metabolic Panelon 06-28 GFR/1.73 sq M.predicted MDRD (S/P/Bld) [Vol rate/Area] 34.030 mL/min/{1.73_m2} Normal [facility] Comment on above: Performed By: #### L ANGEL REES #### [place] [id number] [facility] Bilirubin Test strip Ql (U)O rdered By: Marshall Dominguez on 07-10-2023 Bilirubin Ql (U) Negative Negative [facility] Blood Cultureon 07-10-2023 Bacteria identified Cx Nom (Bld) NO GROWTH 5 DAYS PERFORMED BY: [place] [id number] PATHOLOGIST CH[employer] JORGE MURRELL M.D. Normal [facility] Comment on above: Performed By: #### ANGEL JOHNSON #### [address] [address] [facility] Bacteria identified Cx Nom (Bld) NO GROWTH 5 DAYS PERFORMED BY: [address] [address] PATHOLOGIST CH[employer] JORGE MURRELL M.D. Normal [facility] Comment on above: Performed By: #### L ANGEL REES #### [facility] [address] cervical spine wo conon 0 07-10-2023 CT cervical spine wo con [facility] [place] [address] [place] [address] CT Scan Report Signed Patient: Gera Perdue MR#: [id number] : 1945 Acct:[id number] Age/Sex: 77 / F ADM Date: 07/10/23 Loc: ER Room: Type: [facility] ER Attending Dr: Copies to: Marshall Dominguez DO Ordering Provider: Marshall Dominguez DO Date of Service: 07/10/23 CT/CT cervical spine wo con: FALL CT CERVICAL SPINE WITHOUT CONTRAST WITH 3D RECONSTRUCTIONS: CLINICAL HISTORY: Fall, bruising left eye. COMPARISON: CT cervical spine 12/26/2022. TECHNIQUE: Spiral axial unenhanced images were obtained through the cervical spine. Sagittal, coronal and 3D volume-rendered reconstructions were also reviewed. This CT exam was performed using one or more following dose reduction techniques: Automated exposure control, adjustment of the mA and/or kV according to patient size, or use of iterative reconstruction technique. FINDINGS: Vertebral body height loss involving the C7 vertebral body with associated sclerosis suggesting a chronic process. However, this appears new when compared to the prior CT cervical spine study of 12/26/2022. Remaining vertebral body heights appear maintained. Mild endplate and facet joint degenerative changes. No significant disc height loss is noted. No prevertebral soft tissue swelling is seen. CT/CT cervical spine wo con IMPRESSION: VERTEBRAL BODY HEIGHT LOSS IS SEEN INVOLVING THE C7 VERTEBRAL BODY NEW SINCE 12/26/2022. THERE APPEARS TO BE UNDERLYING SCLEROSIS SUGGESTING OF A CHRONIC COMPONENT. NO RETROPULSION INTO THE SPINAL CANAL IS SEEN. IF ACUITY NEEDS TO BE ASSESSED, FURTHER EVALUATION WITH MRI IS RECOMMENDED. Impression dictated by: Rodriguez Palma Jr., D.O.07/10/2023 9:44 AM Dictation Location: [place] [address] Transcribed By: ANA 07/10/23 0944 Dictated By: Rodriguez Palma Jr, DO 07/10/2344 Signed By: 07/10/23943 Normal [facility] CT head/brain wo conon 07-10 CT head/brain wo con [facility] [place] [address] [place] [address] [address] [address] Scan Report Signed Patient: Gera Perdue MR#: [id number] : 1945 Acct:[id number] Age/Sex: 77 / F ADM Date: 07/10/23 Loc: ER Room: Type: [facility] ER Attending Dr: Copies to: Marshall Dominguez DO Ordering Provider: Marshall Dominguez DO Date of Service: 07/10/23 CT/CT head/brain wo con: FALL CT BRAIN WITHOUT CONTRAST: CLINICAL HISTORY: Fall, bruising left eye. COMPARISON: CT brain 12/26/2022 TECHNIQUE: Contiguous axial unenhanced images were obtained through the brain. This CT exam was performed using one or more following dose reduction techniques: Automated exposure control, adjustment of the mA and/or kV according to patient size, or use of iterative reconstruction technique. FINDINGS: There is no evidence of midline shift, intra or extra-axial fluid collection, hemorrhage or CT evidence of stroke. Cortical atrophy with chronic microvascular ischemic changes similar to the prior study. Posterior fossa appears unremarkable. Visualized intraorbital contents demonstrate no acute findings. Visualized paranasal sinuses are clear. The surrounding soft tissues are normal. CT/CT head/brain wo con IMPRESSION: NO ACUTE INTRACRANIAL ABNORMALITY. Impression dictated by: Rodriguez Palma Jr., D.O.07/10/2023 9:45 AM Dictation Location: [place] [address] Transcribed By: [facility] 07/10/23944 Dictated By: Rodriguez Palma Jr, DO 07/10/23944 Signed By: 07/10/23944 Normal [facility] Calcium [Mass/volume] in Ser um or PlasmaOrdered By: Marshall Dominguez on 07-10-2023 Calcium [Mass/Vol] 8.9 mg/dL Normal 8.6-10.3 [facility] Comment on above: Result Comment: PERF ORMED BY: [address] [address] PATHOLOGIST CH[employer] JORGE MURRELL M.D. Performed By: #### L ANGEL REES #### [facility] [address] Carbon dioxide, total [Moles /volume] in Serum or PlasmaOrdered By: Marshall Dominguez on 07-10-2023 CO2 [Moles/Vol] 32.4 mmol/L High 21.0-31.0 [facility] Comment on above: Performed By: #### L ANGEL REES #### [facility] [address] [place] [address] [place] Chloride [Moles/volume] in S kaveh or PlasmaOrdered By: Marshall Dominguez on 07-10-2023 Chloride [Moles/Vol] 105 mmol/L Normal 98-107 [facility] Comment on above: Performed By: #### L ANGEL REES #### [address] Creatinine [Mass/volume] in Serum or PlasmaOrdered By: Marshall Dominguez on 07-10-2023 Creatinine [Mass/Vol] 1.56 mg/dL High 0.60-1.20 [facility] Comment on above: Performed By: #### L ANGEL REES #### [place] [address] [place] Dipstick and Microscopicon 0 07-10-2023 Appearance (U) Cloudy Critically abnormal Clear [facility] Comment on above: Order Comment: Name Collection Type:: Clean-Voided Midstream Performed By: #### L ANGEL REES #### [place] [address] [place] Bacteria,Urine 2+ High None Seen [facility] Comment on above: Order Comment: Name Collection Type:: Clean-Voided Midstream Performed By: #### L ANGEL REES #### [place] [address] [place] Bilirubin,Urine Negative Normal Negative [facility] Comment on above: Order Comment: Name Collection Type:: Clean-Voided Midstream Performed By: #### L ANGEL REES #### [place] [id number] [place] Glucose Ql (U) Normal Normal Normal [facility] Comment on above: Order Comment: Name Collection Type:: Clean-Voided Midstream Performed By: #### L ACTIC, CUBLD #### [place] [id number] [place] Hyaline Casts,Urine 0-8 Normal 0-8 [facility] Comment on above: Order Comment: Name Collection Type:: Clean-Voided Midstream Result Comment: PERF ORMED BY: [place] [address] PATHOLOGIST CH[employer] JORGE MURRELL M.D. Performed By: #### L ACTIC, CUBLD #### [address] Ketones Ql (U) Negative Normal Negative [facility] Comment on above: Order Comment: Name Collection Type:: Clean-Voided Midstream Performed By: #### L ACTIC, CUBLD #### [place] [address] [place] Leukocyte esterase Test strip Ql (U) 4+ High Negative [facility] Comment on above: Order Comment: Name Collection Type:: Clean-Voided Midstream Performed By: #### L ACTIC, CUBLD #### [place] [address] [place] Nitrite,Urine Positive High Negative [facility] Comment on above: Order Comment: Name Collection Type:: Clean-Voided Midstream Performed By: #### L ACTIC, CUBLD #### [place] [id number] [place] Occult Blood,Urine Negative Normal Negative [facility] Comment on above: Order Comment: Name Collection Type:: Clean-Voided Midstream Result Comment: PERF ORMED BY: [place] [address] PATHOLOGIST CH[employer]ER JORGE MURRELL M.D. Performed By: #### L ACTDOC HERRERALD #### [place] [address] [place] RBC,Urine 3-4 Normal 0-4 [facility] Comment on above: Order Comment: Name Collection Type:: Clean-Voided Midstream Performed By: #### L ACTIC, CUBLD #### [address] Specificy [place],Urine 1.022 Normal 1.001-1.03 0 [facility] Comment on above: Order Comment: Name Collection Type:: Clean-Voided Midstream Performed By: #### L ACTIC, CUBLD #### [address] Squamous Epithelial Cell,Urine 1-2 Normal 0-2 [facility] Comment on above: Order Comment: Name Collection Type:: Clean-Voided Midstream Performed By: #### L ACTIC, CUBLD #### [address] Urobilinogen,Urine Normal Normal Normal [facility] Comment on above: Order Comment: Name Collection Type:: Clean-Voided Midstream Performed By: #### L ACTIC, CUBLD #### [address] WBC,Urine Innumerable High 0-4 [facility] Comment on above: Order Comment: Name Collection Type:: Clean-Voided Midstream Performed By: #### L ACTIC, CUBLD #### [address] ECG 12 lead ECGon 07-10-2023 ECG 12 lead ECG [facility] [place] [address] Electrocardiograph Report Signed Patient: Gera Perdue MR#: [id number] : 1945 Acct:[id number] Age/Sex: 77 / F ADM Date: 07/10/23 Loc: Room: [address] [place] [address] Type: ADM IN Attending Dr: Jolanta Mckenzie MD Ordering Provider: Marshall Dominguez DO Date of Service: 07/10/23 ECG/ECG 12 lead ECG: Fall Copies to: Test Reason : Blood Pressure : 115/056 mmHG Vent. Rate : 068 BPM Atrial Rate : 068 BPM P-R Int : 162 ms QRS Dur : 078 ms QT Int : 384 ms P-R-T Axes : 079 050 060 degrees QTc Int : 408 ms Normal sinus rhythm Low voltage QRS Borderline ECG When compared with ECG of 26-DEC-2022 19:08, No significant change was found Confirmed by MARSHALL DOMINGUEZ DO ([id number]) on 07/11/2023 1:39:23 PM Referred By: Electronically Signed By:MARSHALL DOMINGUEZ DO Transcribed By: MUS Signed By Marshall Dominguez DO 07/11 1339 Normal [facility] Erythrocyte distribution wid th [Ratio] by Automated countOrdered By: Marshall Dominguez on 07-10-2023 Erythrocyte distribution width (RBC) [Ratio] 22.2 % High 11.9-15.3 [facility] Comment on above: Performed By: #### L ANGEL REES #### [place] [address] [place] Erythrocytes [#/volume] in B lood by Automated countOrdered By: Marshall Dominguez on 07-10-2023 RBC (Bld) [#/Vol] 4.17 10*6/uL Normal 3.60-5.00 [facility] Comment on above: Performed By: #### L ANGEL REES #### [address] Glucose [Mass/volume] in Ser um or PlasmaOrdered By: Marshall Dominguez on 07-10-2023 Glucose [Mass/Vol] 83 mg/dL Normal 70-100 [facility] Comment on above: ADA recommended refe rence rangeRandom Glucose Reference Range is dependent on time and content of last meal. Glucose of more than 200 mg/dL in a nonstressed, ambulatory subject supports the diagnosis of Diabetes Mellitus. Result Comment: [place] om Glucose Reference Range is dependent on time and content of last meal. Glucose of more than 200 mg/dL in a nonstressed, ambulatory subject supports the diagnosis of Diabetes Mellitus. ADA recommended reference range Performed By: #### L ANGEL REES #### [address] [address] [place] Gram stain for investigation of transfusion reactionOrdered By: Jolanta Mckenzie on 07-10-2023 Microscopic observation Gram stain Nom (Unsp spec) [facility] Hematocrit [Volume Fraction] of Blood by Automated countOrdered By: Marshall Dominguez on 07-10-2023 Hematocrit (Bld) [Volume fraction] 34.4 % Normal 34.0-46.4 [facility] Comment on above: Performed By: #### L ANGEL REES #### [facility] [address] [place] [address] Hemoglobin [Mass/volume] in BloodOrdered By: Marshall Dominguez on 07-10-2023 Hemoglobin (Bld) [Mass/Vol] 11.0 g/dL Low 11.8-15.4 [facility] Comment on above: Performed By: #### L ANGEL REES #### [facility] [address] [place] [address] Hypochromia LM Ql (Bld)Order ed By: Marshall Dominguez on 07-10-2023 Hypochromia Ql (Bld) Slight [facility] INR in Platelet poor plasma by Coagulation assayOrdered By: Marshall Dominguez on 07-10-2023 INR Coag (PPP) [Relative time] 0.9 {INR} Normal [facility] Comment on above: INR Therapeutic Rang e A) Pre- and Peroperative OAT started two weeks before surgery. NOT HIP SURGERY: 1.5 - 2.5 HIP SURGERY: 2 - 3B) Primary and secondary prevention of venous THROMBOSIS: 2 - 3C) Active venous thrombosis, pulmonary embolismand prevention of recurrent venous thrombosis: 2 - 3D) Prevention of arterial thromboembolismincluding patients with mechanical heart valves: 3 - 4.5 Result Comment: INR Therapeutic Range A) Pre- and Peroperative OAT started two weeks before surgery. NOT HIP SURGERY: 1.5 - 2.5 HIP SURGERY: 2 - 3 B) Primary and secondary prevention of venous THROMBOSIS: 2 - 3 C) Active venous thrombosis, pulmonary embolism and prevention of recurrent venous thrombosis: 2 - 3 D) Prevention of arterial thromboembolism including patients with mechanical heart valves: 3 - 4.5 PERFORMED BY: [place] [address] PATHOLOGIST CH[employer]ER JORGE MURRELL M.D. Performed By: #### L ANGEL REES #### [facility] [address] [place], [place] [id number] [facility] Ketones Auto test strip (U) [Mass/Vol]Ordered By: Marshall Dominguez on 07-10-2023 Ketones (U) [Mass/Vol] Negative Negative [facility] - UrinalysisOrder ed By: Marshall Dominguez on 07-10-2023 Hyaline casts LM Ql (Urine sed) 0-8 [LPF] 0-8 [facility] Lactate [Moles/volume] in Se rum or PlasmaOrdered By: Marshall Dominguez on 07-10-2023 Lactate [Moles/Vol] 1.6 mmol/L Normal 0.5-2.2 [facility] Comment on above: Result Comment: PERF ORMED BY: [place] [address] PATHOLOGIST CH[employer] JORGE MURRELL M.D. Performed By: #### L ANGEL REES #### [address] Leukocytes [#/volume] correc juma for nucleated erythrocytes in Blood by Automated counOrdered By: Marshall Dominguez on 07-10-2023 WBC corrected for nucl RBC Auto (Bld) [#/Vol] 21.3 10*3/uL 3.8-11.6 [facility] Leukocytes [#/volume] in Blo od by Automated countOrdered By: Marshall Dominguez on 07-10-2023 WBC (Bld) [#/Vol] 21.3 10*3/uL High 3.8-11.6 [facility] Comment on above: Performed By: #### L ANGEL REES #### [facility] [address] [place] [address] Lymphocytes [#/volume] in Bl ood by Automated countOrdered By: Marshall Dominguez on 07-10-2023 Lymphocytes (Bld) [#/Vol] 6.7 10*3/uL High 1.00-4.8 [facility] Comment on above: Performed By: #### L ANGEL REES #### [address] Lymphocytes/100 leukocytes i n Blood by Automated countOrdered By: Marshall Dominguez on 07-10-2023 Lymphocytes/100 WBC (Bld) 31.5 % Normal . [facility] Comment on above: Performed By: #### L ANGEL REES #### [address] MCH [Entitic mass] by Automa juma countOrdered By: Marshall Dominguez on 07-10-2023 MCH (RBC) [Entitic mass] 26.5 pg Normal 24.7-34.3 [facility] Comment on above: Performed By: #### L ANGEL REES #### [address] MCHC Auto (RBC) [Mass/Vol]Or dered By: Marshall Dominguez on 07-10-2023 MCHC (RBC) [Mass/Vol] 32.0 g/dL 32.0-35.0 [facility] MCV [Entitic volume] by Auto mated countOrdered By: Marshall Dominguez on 07-10-2023 MCV (RBC) [Entitic vol] 82.7 fL Normal 80-100 [facility] Comment on above: Performed By: #### L ANGEL REES #### [address] Microcytes LM Ql (Bld)Ordere d By: Marshall Dominguez on 07-10-2023 Microcytes Ql (Bld) Moderate [facility] Neutrophils [#/volume] in Bl ood by Automated countOrdered By: Marshall Dominguez on 07-10-2023 Neutrophils (Bld) [#/Vol] 13.1 10*3/uL High 1.8-7.7 [facility] Comment on above: Performed By: #### L ANGEL REES #### [address] Nitrite Test strip Ql (U)Ord ered By: Marshall Dominguez on 07-10-2023 Nitrite Ql (U) Positive Negative [facility] No Panel InformationOrdered By: Marshall Dominguez on 07-10-2023 Estimated GFR (CKD-EPI) 34.030 mL/Min [facility] Creatinine Clearance (Chem N/A [facility] Nucleated erythrocytes [Pres ence] in Blood by Automated countOrdered By: Marshall Dominguez on 07-10-2023 Nucleated RBC Auto Ql (Bld) 0.1 /100{WBC} 0-0.5 [facility] Ovalocyte detectionOrdered B y: Marshall Dominguez on 07-10-2023 Ovalocytes LM Ql (Bld) Slight [facility] Platelet adequacy [Presence] in Blood by Light microscopyOrdered By: Marshall Dominguez on 07-10-2023 Platelets LM Ql (Bld) Normal Normal [facility] Platelet mean volume [Entiti c volume] in Blood by Automated countOrdered By: Marshall Dominguez on 07-10-2023 Platelet mean volume (Bld) [Entitic vol] 8.0 fL Normal 6.3-10.7 [facility] Comment on above: Performed By: #### L ANGEL REES #### [facility] [address] Platelet morphology finding [Identifier] in BloodOrdered By: Marshall Dominguez on 07-10-2023 Platelet morphology finding Nom (Bld) N/A [facility] Platelets [#/volume] in Bloo d by Automated countOrdered By: Marshall Dominguez on 07-10-2023 Platelets (Bld) [#/Vol] 250 10*3/uL Normal 150-450 [facility] Comment on above: Performed By: #### L ANGEL REES #### [facility] [address] [place] [address] [place] Poikilocytosis [Presence] in Blood by Light microscopyOrdered By: Marshall Dominguez on 07-10-2023 Poikilocytosis LM Ql (Bld) Slight [facility] Polychromasia [Presence] in Blood by Light microscopyOrdered By: Marshall Dominguez on 07-10-2023 Polychromasia LM Ql (Bld) Slight [facility] Potassium [Moles/volume] in Serum or PlasmaOrdered By: Marshall Dominguez on 07-10-2023 Potassium [Moles/Vol] 3.9 mmol/L Normal 3.5-5.1 [facility] Comment on above: Performed By: #### L ANGEL REES #### [address] Prothrombin time (PT)Ordered By: Marshall Dominguez on 07-10-2023 PT Coag (PPP) [Time] 10.6 s Normal 9.0-12.9 [facility] Comment on above: A hematocrit value g reater than 55% may lead to inaccurate results in coagulation testing. Patients having hematocrit values >55% require a special collection tube for coagulation studies. Please contact the laboratory at [phone] for redraw instructions. Result Comment: A he matocrit value greater than 55% may lead to inaccurate results in coagulation testing. Patients having hematocrit values >55% require a special collection tube for coagulation studies. Please contact the laboratory at [phone] for redraw instructions. Performed By: #### L ANGEL REES #### [address] RBC morphologyOrdered By: Ruslan Dominguez on 07-10-2023 RBC morphology finding Nom (Bld) N/A [facility] Scan and CBCon 07-10-2023 Acanthocytes Slight Normal [facility] Comment on above: Performed By: #### L ANGEL REES #### [address] Hypochromasia Slight Normal [facility] Comment on above: Performed By: #### L ANGEL REES #### [address] Mean Corpuscular HGB Conc 32.0 g/dL Normal 32.0-35.0 [facility] Comment on above: Performed By: #### L ANGEL REES #### [address] Microcytosis Moderate Normal [facility] Comment on above: Performed By: #### L ANGEL REES #### [address] NRBC% 0.1 /100{WBC} Normal 0-0.5 [facility] Comment on above: Performed By: #### L ANGEL REES #### [address] Ovalocytes Slight Normal [facility] Comment on above: Performed By: #### L ANGEL REES #### [address] Platelet Estimate Normal Normal Normal [facility] Comment on above: Result Comment: PERF ORMED BY: [place] [address] PATHOLOGIST [employer] JORGE MURRELL M.D. Performed By: #### L ANGEL REES #### [address] Poikilocytosis Slight Normal [facility] Comment on above: Performed By: #### L ANGEL REES #### [address] Polychromasia Slight Normal [facility] Comment on above: Performed By: #### L ANGEL REES #### [address] Tear Drop Cells Slight Normal [facility] Comment on above: Performed By: #### L ANGEL REES #### [address] Serum or plasma anion gap de terminationOrdered By: Marshall Dominguez on 07-10-2023 Anion gap [Moles/Vol] 9.5 mmol/L Normal 6.0-15.0 [facility] Comment on above: Performed By: #### L ANGEL REES #### [address] Sodium [Moles/volume] in Ser um or PlasmaOrdered By: Marshall Dominguez on 07-10-2023 Sodium [Moles/Vol] 143 mmol/L Normal 136-145 [facility] Comment on above: Performed By: #### L ANGEL REES #### [facility] [address] [place] [address] Specific gravity Auto test s trip (U) [Rel density]Ordered By: Marshall Dominguez on 07-10-2023 Specific gravity (U) [Rel density] 1.022 1.001-1.03 0 [facility] Squamous epithelial cells de tection in urine sediment by light microscopyOrdered By: Marshall Dominguez on 07-10-2023 Epithelial cells.squamous LM Ql (Urine sed) 1-2 [HPF] 0-2 [facility] Teardrop cell detectionOrder ed By: Marshall Dominguez on 07-10-2023 Dacrocytes LM Ql (Bld) [facility] High Sensitivityo n 07-10-2023 Troponin I High Sensitivity 11.7 pg/mL Normal 0.0-15.0 [facility] Comment on above: Result Comment: PERF ORMED BY: [place] [address] PATHOLOGIST [employer] JORGE MURRELL M.D. Performed By: #### L ANGEL REES #### [facility] [address] [place] [address] Troponin I.cardiac [Mass/vol ume] in Serum or Plasma by Detection limit <= 0.01 ng/Ordered By: Marshall Dominguez on 07-10-2023 Troponin I.cardiac DL <= 0.01 ng/mL [Mass/Vol] 11.7 pg/mL 0.0-15.0 [facility] Urea nitrogen [Mass/volume] in Serum or PlasmaOrdered By: Marshall Dominguez on 07-10-2023 Urea nitrogen [Mass/Vol] 36 mg/dL High 7-25 [facility] Comment on above: Performed By: #### L ANGEL REES #### [facility] [address] [place] [address] Urine Cultureon 07-10-2023 Bacteria identified Cx Nom (U) ORGANISM: Proteus mirabilis (O:PROMIR) [place] Count >100,000 Aerobic NATALIA Charge (NMIC56) SUSCEPTIBILITY ORGANISM: O:PROMIR ANTIBIOTIC INTERPRETATION NATALIA Amikacin S <16 Amoxacillin/K Clavulanate S <8 Ampicillin S <8 Ampicillin/Sulbactam S <4 Aztreonam S <4 Cefazolin S <2 Cefepime S <2 Ceftazidime S <1 Ceftazidime/Avibactam S <4 Ceftolozane/Tazobactam S <2 Ceftriaxone S <1 Cefuroxime S <4 Ciprofloxacin S <0.25 Ertapenem S <0.5 Gentamicin S <2 Levofloxacin S <0.5 Meropenem S <1 Meropenem/Vaborbactam S <2 Piperacillin/Tazobactam S <8 Tobramycin S <2 Trimethoprim/Sulfamethoxaz ole S <0.5 S = SUSCEPTIBLE I = INTERMEDIATE R = RESISTANT BLANK = DATA NOT AVAILABLE, OR DRUG NOT ADVISABLE OR TESTED R* = RESISTANCE DUE TO EXTENDED SPECTRUM BETA-LACTAMASES ESBL = EXTENDED SPECTRUM BETA-LACTAMASE TFG = THYMIDINE-DEPENDENT STRAIN HALLIE = BETA-LACTAMASE POSITIVE IB = INDUCIBLE BETA-LACTAMASE. APPEARS IN PLACE OF 'S' WITH SPECIES KNOWN TO POSSESS INDUCIBLE BETA-LACTAMASES. POTENTIALLY THEY MAY BECOME RESISTANT TO ALL B-LACTAM DRUGS. PERFORMED BY: [place] [address] PATHOLOGIST [employer] JORGE MURRELL M.D. Normal [facility] Comment on above: Performed By: #### L ANGEL REES #### [address] Urine bacteria detection by automated methodOrdered By: Marshall Dominguez on 07-10-2023 Bacteria Auto Ql (U) 2+ None Seen [facility] Urine clarity by refractomet ry automatedOrdered By: Marshall Dominguez on 07-10-2023 Clarity Refractometry automated (U) Cloudy Clear [facility] Urine culture routineOrdered By: Marshall Dominguez on 07-10-2023 Bacteria identified Cx Nom (U) Proteus mirabilis [facility] Urine glucose measurement by automated test strip (mass/volume)Ordered By: Marshall Dominguez on 07-10-2023 Glucose Auto test strip (U) [Mass/Vol] Normal mg/dL Normal [facility] Urine hemoglobin detection b y automated test stripOrdered By: Marshall Dominguez on 07-10-2023 Hemoglobin Auto test strip Ql (U) Negative Negative [facility] Urine leukocyte esterase det ection by automated test stripOrdered By: Marshall Dominguez on 07-10-2023 Leukocyte esterase Auto test strip Ql (U) 4+ Negative [facility] Urine pH measurement by auto mated test stripOrdered By: Marshall Dominguez on 07-10-2023 pH (U) 8.5 [pH] Normal 5.0-9.0 [facility] Comment on above: Order Comment: Name Collection Type:: Clean-Voided Midstream Performed By: #### L ANGEL REES #### [facility] [address] [place] [address] Urine protein measurement by automated test strip (mass/volume)Ordered By: Marshall Dominguez on 07-10-2023 Protein (U) [Mass/Vol] 30 mg/dL High Negative [facility] Comment on above: Order Comment: Name Collection Type:: Clean-Voided Midstream Performed By: #### L ANGEL REES #### [facility] [address] [place] [address] Urobilinogen Auto test strip (U) [Mass/Vol]Ordered By: Marshall Dominguez on 07-10-2023 Urobilinogen (U) [Mass/Vol] Normal mg/dL Normal [facility] XR hip LT min 2V(w/wo pelvis )*on 07-10-2023 XR hip LT min 2V(w/wo pelvis)* [place] [address] XRay Report Signed Patient: Gera Perdue MR#: [id number] : 1945 Acct:[id number] Age/Sex: 77 / F ADM Date: 07/10/23 Loc: ER Room: Type: [facility] ER Attending Dr: Copies to: Marshall Dominguez DO Ordering Provider: Marshall Dominguez DO Date of Service: 07/10/23 XR/XR hip LT min 2V(w/wo pelvis)*: PAIN ([id number]) XR/XR chest 2V*: PAIN Chest 2 views left hip 2 views of one view pelvis. CLINICAL HISTORY: Fall today. Left hip pain COMPARISON: Chest 06/17/2023 left hip 11/22/2022 FINDINGS: Chest: Heart normal in size. No lung consolidation pneumothorax pleural effusion or free air. Residual deformity is seen involving the right humeral head suggestive of prior fracture. Left hip: Hardware is seen transversing the left hip without evidence of hardware complication. No definitive acute fracture is seen. Surrounding heterotopic ossification is noted. Mild degenerative changes of both hips. Additional degenerative changes are seen involving the visualized lower lumbar spine, SI joints and pubic symphysis. XR/XR chest 2V* IMPRESSION: 1. CHEST DEMONSTRATES NO ACUTE FINDINGS. 2. LEFT HIP DEMONSTRATE HARDWARE IN PLACE WITHOUT RADIOGRAPHIC COMPLICATION. NO DEFINITIVE ACUTE FRACTURE IS SEEN. Impression dictated by: Rodriguez Palma Jr., D.OYoanna07/10/2023 9:32 AM Dictation Location: [place] [address] Transcribed By: [facility] 07/10/23931 Dictated By: Rodriguez Palma Jr, DO 07/10/2329 Signed By: 07/10/23931 Normal [facility] US venous duplex LE BIon US venous duplex LE BI [facility] [place] [address] Ultrasound Report Signed Patient: Gera Perdue MR#: [id number] : 1945 Acct:[id number] Age/Sex: 77 / F ADM Date: 06/17/23 Loc: ER Room: Type: [facility] ER Attending Dr: Ordering Provider: CHIP Greenwood Date of Service: 06/17/23 US/US venous duplex LE BI: leg pain swelling Copies to: CHIP Greenwood BILATERAL LOWER EXTREMITY VENOUS DUPLEX INDICATION: Painful swollen legs PROCEDURE: Color-flow duplex scanning is used to interrogate the deep venous system of the right and left lower extremities. The common femoral vein, femoral vein and popliteal vein show good compressibility with normal proximal and distal augmentation. The posterior tibial and peroneal veins are compressible. US/US venous duplex LE BI IMPRESSION: NO EVIDENCE FOR DEEP VEIN THROMBOSIS OR PROXIMAL SUPERFICIAL THROMBOPHLEBITIS IN THE RIGHT OR LEFT LOWER EXTREMITY. Impression dictated by: Gustavo Garcia M.D.06/18/2023 4:27 PM Dictation Location: [place] [address] Tech: Renetta Sylvester Transcribed By: ANA 06/18/231626 Dictated By: Gustavo Garcia MD 06/18/231626 Signed By: 06/18/231626 Normal [facility] Alanine aminotransferase [En zymatic activity/volume] in Serum or PlasmaOrdered By: Kadie Jones on 06-17-2023 ALT [Catalytic activity/Vol] 14 U/L Normal 7-52 [facility] Comment on above: Performed By: #### L ANGEL REES #### [facility] [address] Albumin [Mass/volume] in Ser um or Plasma by Bromocresol green (BCG) dye binding methoOrdered By: Kadie Jones on 06-17-2023 Albumin BCG dye [Mass/Vol] 3.4 g/dL 3.5-5.7 [facility] Alkaline phosphatase [Enzyma tic activity/volume] in Serum or PlasmaOrdered By: Kadie Jones on 06-17-2023 ALP [Catalytic activity/Vol] 48 U/L Normal 34-104 [facility] Comment on above: Performed By: #### L ANGEL REES #### [facility] [address] [place] [id number] [facility] Aspartate aminotransferase [ Enzymatic activity/volume] in Serum or PlasmaOrdered By: Kadie Jones on 06-17-2023 AST [Catalytic activity/Vol] 15 U/L Normal 13-39 [facility] Comment on above: Performed By: #### L ANGEL REES #### [facility] [address] [place] [id number] [place] Automated basophil %Ordered By: Kadie Jones on 06-17-2023 Basophils/100 WBC (Bld) 0.3 % Normal . [facility] Comment on above: Performed By: #### L ANGEL REES #### [address] Automated basophil countOrde red By: Kadie Bullimore on 06-17-2023 Basophils (Bld) [#/Vol] 0.1 10*3/uL Normal 0.0-0.2 [facility] Comment on above: Result Comment: PERF ORMED BY: [place] [address] PATHOLOGIST [employer] JORGE MURRELL M.D. Performed By: #### L ANGEL REES #### [address] Automated blood monocyte cou ntOrdered By: Kadie Bullimore on 06-17-2023 Monocytes (Bld) [#/Vol] 1.1 10*3/uL High 0.0-0.8 [facility] Comment on above: Performed By: #### L ANGEL REES #### [address] Automated eosinophil %Ordere d By: Kadie Bullimore on 06-17-2023 Eosinophils/100 WBC (Bld) 0.2 % Normal . [facility] Comment on above: Performed By: #### L ANGEL REES #### [address] Automated eosinophil countOr dered By: Kadie Bullimore on 06-17-2023 Eosinophils (Bld) [#/Vol] 0.0 10*3/uL Normal 0.0-0.45 [facility] Comment on above: Performed By: #### L ANGEL REES #### [address] Automated monocyte %Ordered By: Kadie Bullimore on 06-17-2023 Monocytes/100 WBC (Bld) 6.6 % Normal . [facility] Comment on above: Performed By: #### L ANGEL REES #### [address] Automated neutrophil %Ordere d By: Kadie Bullimore on 06-17-2023 Neutrophils/100 WBC (Bld) 71.7 % Normal . [facility] Comment on above: Performed By: #### L ANGEL REES #### [address] BNP ser/plasOrdered By: Ging er Bullimore on 06-17-2023 Natriuretic peptide B (Bld) [Mass/Vol] 109.0 pg/mL High 5-100 [facility] Comment on above: Result Comment: PERF ORMED BY: [place] [address] PATHOLOGIST [employer] JORGE MURRELL M.D. Performed By: #### L ANGEL REES #### [address] Bilirubin.total [Mass/volume ] in Serum or PlasmaOrdered By: Kadie Bullimore on 06-17-2023 Bilirubin [Mass/Vol] 0.4 mg/dL Normal 0.3-1.0 [facility] Comment on above: Performed By: #### L ANGEL REES #### [address] Calcium [Mass/volume] in Ser um or PlasmaOrdered By: Kadie Bullimore on 06-17-2023 Calcium [Mass/Vol] 9.5 mg/dL Normal 8.6-10.3 [facility] Comment on above: Performed By: #### L ANGEL REES #### [address] Carbon dioxide, total [Moles /volume] in Serum or PlasmaOrdered By: Kadie Bullimore on 06-17-2023 CO2 [Moles/Vol] 34.6 mmol/L High 21.0-31.0 [facility] Comment on above: Performed By: #### L ANGEL REES #### [address] [place] [address] [place] Chloride [Moles/volume] in S kaveh or PlasmaOrdered By: Kadie Jones on 06-17-2023 Chloride [Moles/Vol] 104 mmol/L Normal 98-107 [facility] Comment on above: Performed By: #### L ANGEL REES #### [address] Complete Blood Count Auto Di ffon 06-17-2023 Mean Corpuscular HGB Conc 31.5 g/dL Low 32.0-35.0 [facility] Comment on above: Performed By: #### L ANGEL REES #### [address] Monocytes/100 WBC (Bld) 20.88 % High 0.00-20.00 [facility] Comment on above: Result Comment: For adults in ED, MDW > 20.0 may be associated with a higher risk of sepsis during the first 12 hrs of hospital admission Performed By: #### L ANGEL REES #### [address] NRBC% 0.1 /100{WBC} Normal 0-0.5 [facility] Comment on above: Performed By: #### L ANGEL REES #### [address] Comprehensive Metabolic Pane harsha 06-17-2023 Albumin [Mass/Vol] 3.4 g/dL Low 3.5-5.7 [facility] Comment on above: Performed By: #### L ANGEL REES #### [address] Creatinine Clr Calc Pharmacy 35.64 Normal [facility] Comment on above: Result Comment: PERF ORMED BY: [place] [address] PATHOLOGIST [employer] JORGE MURRELL M.D. Performed By: #### L ANGEL REES #### [address] GFR/1.73 sq M.predicted MDRD (S/P/Bld) [Vol rate/Area] 44.823 mL/min/{1.73_m2} Normal [facility] Comment on above: Performed By: #### L ANGEL REES #### [facility] [address] [place] [address] [place] Creatinine [Mass/volume] in Serum or PlasmaOrdered By: Kadie Jones on 06-17-2023 Creatinine [Mass/Vol] 1.24 mg/dL High 0.60-1.20 [facility] Comment on above: Performed By: #### L ANGEL REES #### [facility] [address] Erythrocyte distribution wid th [Ratio] by Automated countOrdered By: Kadie Jones on 06-17-2023 Erythrocyte distribution width (RBC) [Ratio] 21.5 % High 11.9-15.3 [facility] Comment on above: Performed By: #### L ANGEL REES #### [facility] [address] [place] [address] [place] Erythrocytes [#/volume] in B lood by Automated countOrdered By: Kadie Jones on 06-17-2023 RBC (Bld) [#/Vol] 4.39 10*6/uL Normal 3.60-5.00 [facility] Comment on above: Performed By: #### L ANGEL REES #### [facility] [address] [place] [address] [place] Glucose [Mass/volume] in Ser um or PlasmaOrdered By: Kadie Jones on 06-17-2023 Glucose [Mass/Vol] 103 mg/dL High 70-100 [facility] Comment on above: ADA recommended refe rence rangeRandom Glucose Reference Range is dependent on time and content of last meal. Glucose of more than 200 mg/dL in a nonstressed, ambulatory subject supports the diagnosis of Diabetes Mellitus. Result Comment: [place] om Glucose Reference Range is dependent on time and content of last meal. Glucose of more than 200 mg/dL in a nonstressed, ambulatory subject supports the diagnosis of Diabetes Mellitus. ADA recommended reference range Performed By: #### L ANGEL REES #### [address] Hematocrit [Volume Fraction] of Blood by Automated countOrdered By: Kadie Jones on 06-17-2023 Hematocrit (Bld) [Volume fraction] 34.6 % Normal 34.0-46.4 [facility] Comment on above: Performed By: #### L ANGEL REES #### [address] Hemoglobin [Mass/volume] in BloodOrdered By: Kadie Jones on 06-17-2023 Hemoglobin (Bld) [Mass/Vol] 10.9 g/dL Low 11.8-15.4 [facility] Comment on above: Performed By: #### L ANGEL REES #### [address] Leukocytes [#/volume] correc juma for nucleated erythrocytes in Blood by Automated counOrdered By: Kadie Jones on 06-17-2023 WBC corrected for nucl RBC Auto (Bld) [#/Vol] 17.4 10*3/uL 3.8-11.6 [facility] Leukocytes [#/volume] in Blo od by Automated countOrdered By: Kadie Jones on 06-17-2023 WBC (Bld) [#/Vol] 17.4 10*3/uL High 3.8-11.6 [facility] Comment on above: Performed By: #### L ANGEL REES #### [place] [address] [place] Lymphocytes [#/volume] in Bl ood by Automated countOrdered By: Kadie Jones on 06-17-2023 Lymphocytes (Bld) [#/Vol] 3.7 10*3/uL Normal 1.00-4.8 [facility] Comment on above: Performed By: #### L ANGEL REES #### [place] [address] [place] Lymphocytes/100 leukocytes i n Blood by Automated countOrdered By: Kadie Jones on 06-17-2023 Lymphocytes/100 WBC (Bld) 21.2 % Normal . [facility] Comment on above: Performed By: #### L ANGEL REES #### [address] MCH [Entitic mass] by Automa juma countOrdered By: Kadie Jones on 06-17-2023 MCH (RBC) [Entitic mass] 24.8 pg Normal 24.7-34.3 [facility] Comment on above: Performed By: #### L ANGEL REES #### [address] MCHC Auto (RBC) [Mass/Vol]Or dered By: Kadie Jones on 06-17-2023 MCHC (RBC) [Mass/Vol] 31.5 g/dL 32.0-35.0 [facility] MCV [Entitic volume] by Auto mated countOrdered By: Kadie Jones on 06-17-2023 MCV (RBC) [Entitic vol] 78.7 fL Low 80-100 [facility] Comment on above: Performed By: #### L ANGEL REES #### [address] Monocyte distribution width [Entitic volume] in Blood by AutomatedOrdered By: Kadie Jones on 06-17-2023 Monocyte distribution width Auto (Bld) [Entitic vol] 20.88 % 0.00-20.00 [facility] Comment on above: For adults in ED, MD W > 20.0 may be associated with a higher risk of sepsis during the first 12 hrs of hospital admission Neutrophils [#/volume] in Bl ood by Automated countOrdered By: Kadie Jones on 06-17-2023 Neutrophils (Bld) [#/Vol] 12.4 10*3/uL High 1.8-7.7 [facility] Comment on above: Performed By: #### L ANGEL REES #### [address] No Panel InformationOrdered By: Kadie Jones on 06-17-2023 Estimated GFR (CKD-EPI) 44.823 mL/Min [facility] Creatinine Clearance (Chem 35.64 [facility] Nucleated erythrocytes [Pres ence] in Blood by Automated countOrdered By: Kadie Jones on 06-17-2023 Nucleated RBC Auto Ql (Bld) 0.1 /100{WBC} 0-0.5 [facility] Platelet mean volume [Entiti c volume] in Blood by Automated countOrdered By: Kadie Jones on 06-17-2023 Platelet mean volume (Bld) [Entitic vol] 7.4 fL Normal 6.3-10.7 [facility] Comment on above: Performed By: #### L ANGEL REES #### [place] [address] [place] Platelets [#/volume] in Bloo d by Automated countOrdered By: Kadie Jones on 06-17-2023 Platelets (Bld) [#/Vol] 257 10*3/uL Normal 150-450 [facility] Comment on above: Performed By: #### L ANGEL REES #### [facility] [address] [place] [address] [place] Potassium [Moles/volume] in Serum or PlasmaOrdered By: Kadie Jones on 06-17-2023 Potassium [Moles/Vol] 3.7 mmol/L Normal 3.5-5.1 [facility] Comment on above: Performed By: #### L ANGEL REES #### [facility] [address] [place] [address] [place] Protein [Mass/volume] in Ser um or PlasmaOrdered By: Kadie Jones on 06-17-2023 Protein [Mass/Vol] 6.3 g/dL Low 6.4-8.9 [facility] Comment on above: Performed By: #### L ANGEL REES #### [address] Serum globulin measurement b y calculation (mass/volume)Ordered By: Kadie Jones on 06-17-2023 Globulin (S) [Mass/Vol] 2.9 g/dL Normal [facility] Comment on above: Performed By: #### L ANGEL REES #### [address] Serum or plasma albumin/glob ulin mass ratioOrdered By: Kadie Bullimore on 06-17-2023 Albumin/Globulin [Mass ratio] 1.2 {ratio} [facility] Comment on above: Performed By: #### L ANGEL REES #### [address] Serum or plasma anion gap de terminationOrdered By: Kadie Bullimore on 06-17-2023 Anion gap [Moles/Vol] 8.1 mmol/L Normal 6.0-15.0 [facility] Comment on above: Performed By: #### L ANGEL REES #### [address] Sodium [Moles/volume] in Ser um or PlasmaOrdered By: Kadie Bullimore on 06-17-2023 Sodium [Moles/Vol] 143 mmol/L Normal 136-145 [facility] Comment on above: Performed By: #### L ANGEL REES #### [address] Troponin I High Sensitivityo n 06-17-2023 Troponin I High Sensitivity 9.5 pg/mL Normal 0.0-15.0 [facility] Comment on above: Result Comment: PERF ORMED BY: [place] [address] PATHOLOGIST [employer] JORGE MURRELL M.D. Performed By: #### L ANGEL REES #### [address] Troponin I.cardiac [Mass/vol ume] in Serum or Plasma by Detection limit <= 0.01 ng/Ordered By: Kadie Bullimore on 06-17-2023 Troponin I.cardiac DL <= 0.01 ng/mL [Mass/Vol] 9.5 pg/mL 0.0-15.0 [facility] Urea nitrogen [Mass/volume] in Serum or PlasmaOrdered By: Kadie Jones on 06-17-2023 Urea nitrogen [Mass/Vol] 25 mg/dL Normal 7-25 [facility] Comment on above: Performed By: #### L ANGEL REES #### [facility] [address] XR chest 2V*on 06-17-2023 XR chest 2V* [facility] [place] [address] [place] [address] XRay Report Signed Patient: Gera Perdue MR#: [id number] : 1945 Acct:[id number] Age/Sex: 77 / F ADM Date: 06/17/23 Loc: ER Room: Type: [facility] ER Attending Dr: Copies to: CHIP Greenwood Ordering Provider: CHIP Greenwood Date of Service: 06/17/23 XR/XR chest 2V*: Skin/Abscess/Foreign Body Chest 2 views CLINICAL HISTORY: Bilateral leg swelling. COMPARISON: Chest 09/08/2020 FINDINGS: Heart normal in size. Chronic interstitial changes. No consolidation pneumothorax pleural effusion or free air. XR/XR chest 2V* IMPRESSION: NO ACUTE CARDIOPULMONARY ABNORMALITY. Impression dictated by: Ryan Brizuela Jr.OYoanna06/17/2023 4:09 PM Dictation Location: [place] [address] Transcribed By: [facility] 06/17/23 1609 Dictated By: Rodriguez Palma Jr, DO 06/17/23 1602 Signed By: 06/17/23 1609 Normal [facility] Anisocytosis LM Ql (Bld)Orde red By: Carla Hagan on 12-31-2022 Anisocytosis Ql (Bld) Moderate [facility] Basophils Auto (Bld) [#/Vol] Ordered By: Carla Hagan on 12-31-2022 Basophils (Bld) [#/Vol] N/A [facility] Basophils/100 WBC Auto (Bld) Ordered By: Carla Hagan on 12-31-2022 Basophils/100 WBC (Bld) N/A [facility] Basophils/100 WBC Manual cnt (Bld)Ordered By: Carla Hagan on 12-31-2022 Basophils/100 WBC (Bld) 1 % 0-2 [facility] Calcium [Mass/volume] in Ser um or PlasmaOrdered By: Carla Hagan on 12-31-2022 Calcium [Mass/Vol] 8.6 mg/dL 8.2-10.2 [facility] Carbon dioxide, total [Moles /volume] in Serum or PlasmaOrdered By: Carla Hagan on 12-31-2022 CO2 [Moles/Vol] 26.2 mmol/L 22.0-30.0 [facility] Chloride [Moles/volume] in S kaveh or PlasmaOrdered By: Carla Hagan on 12-31-2022 Chloride [Moles/Vol] 99 mmol/L 95-114 [facility] Creatinine and Glomerular fi ltration rate.predicted panel (S/P/Bld)Ordered By: Carla Hagan on 12-31-2022 Creatinine [Mass/Vol] 0.99 mg/dL 0.44-1.03 [facility] Eosinophils Auto (Bld) [#/Vo l]Ordered By: Carla Hagan on 12-31-2022 Eosinophils (Bld) [#/Vol] N/A [facility] Eosinophils/100 WBC Auto (Bl d)Ordered By: Carla Hagan on 12-31-2022 Eosinophils/100 WBC (Bld) N/A [facility] Eosinophils/100 WBC Manual c nt (Bld)Ordered By: Carla Hagan on 12-31-2022 Eosinophils/100 WBC (Bld) 1 % 1-3 [facility] Erythrocyte distribution wid th Auto (RBC) [Ratio]Ordered By: Carla Hagan on 12-31-2022 Erythrocyte distribution width (RBC) [Ratio] 15.7 % 11.9-15.3 [facility] Estimated glomerular filtrat ion rate (GFR) non- AmericanOrdered By: Carla Hagan on 12-31-2022 GFR/1.73 sq M.predicted among non-blacks MDRD (S/P/Bld) [Vol rate/Area] 54 mL/Min [facility] Giant platelets/100 leukocyt es [Ratio] in Blood by Manual countOrdered By: Carla Hagan on 12-31-2022 Giant platelets/100 WBC Manual cnt (Bld) [Ratio] 1 /100{WBC} [facility] Glucose [Mass/volume] in Ser um or PlasmaOrdered By: Carla Hagan on 12-31-2022 Glucose [Mass/Vol] 115 mg/dL 70-100 [facility] Comment on above: ADA recommended refe rence rangeRandom Glucose Reference Range is dependent on time and content of last meal. Glucose of more than 200 mg/dL in a nonstressed, ambulatory subject supports the diagnosis of Diabetes Mellitus. Helmet cell detectionOrdered By: Carla Hagan on 12-31-2022 Helmet cells LM Ql (Bld) Slight [facility] Hematocrit Auto (Bld) [Volum e fraction]Ordered By: Carla Hagan on 12-31-2022 Hematocrit (Bld) [Volume fraction] 30.2 % 34.0-46.4 [facility] Hemoglobin [Mass/volume] in BloodOrdered By: Carla Hagan on 12-31-2022 Hemoglobin (Bld) [Mass/Vol] 9.8 g/dL 11.8-15.4 [facility] Hypochromia LM Ql (Bld)Order ed By: Carla Hagan on 12-31-2022 Hypochromia Ql (Bld) Slight [facility] Laboratory - Chemistry and C hemistry - challengeOrdered By: Carla Hagan on 12-31-2022 Magnesium [Mass/Vol] 1.5 mg/dL 1.6-2.6 [facility] Leukocytes [#/volume] correc juma for nucleated erythrocytes in Blood by Automated counOrdered By: Carla Hagan on 12-31-2022 WBC corrected for nucl RBC Auto (Bld) [#/Vol] 13.4 10*3/uL 3.8-11.6 [facility] Lymphocytes Auto (Bld) [#/Vo l]Ordered By: Carla Hagan on 12-31-2022 Lymphocytes (Bld) [#/Vol] N/A [facility] Lymphocytes/100 WBC Auto (Bl d)Ordered By: Carla Hagan on 12-31-2022 Lymphocytes/100 WBC (Bld) N/A [facility] Lymphocytes/100 WBC Manual c nt (Bld)Ordered By: Carla Hagan on 12-31-2022 Lymphocytes/100 WBC (Bld) 8 % 18-42 [facility] MCH Auto (RBC) [Entitic mass ]Ordered By: Carla Hagan on 12-31-2022 MCH (RBC) [Entitic mass] 25.3 pg 24.7-34.3 [facility] MCHC Auto (RBC) [Mass/Vol]Or dered By: Carla Hagan on 12-31-2022 MCHC (RBC) [Mass/Vol] 32.3 g/dL 32.0-35.0 [facility] MCV Auto (RBC) [Entitic vol] Ordered By: Carla Hagan on 12-31-2022 MCV (RBC) [Entitic vol] 78.2 fL 80-100 [facility] Microcytes LM Ql (Bld)Ordere d By: Carla Hagan on 12-31-2022 Microcytes Ql (Bld) Moderate [facility] Monocytes Auto (Bld) [#/Vol] Ordered By: Carla Hagan on 12-31-2022 Monocytes (Bld) [#/Vol] N/A [facility] Monocytes/100 WBC Auto (Bld) Ordered By: Carla Hagan on 12-31-2022 Monocytes/100 WBC (Bld) N/A [facility] Monocytes/100 WBC Manual cnt (Bld)Ordered By: Carla Hagan on 12-31-2022 Monocytes/100 WBC (Bld) 5 % 2-11 [facility] Neutrophils Auto (Bld) [#/Vo l]Ordered By: Carla Hagan on 12-31-2022 Neutrophils (Bld) [#/Vol] N/A [facility] Neutrophils/100 WBC Auto (Bl d)Ordered By: Carla Hagan on 12-31-2022 Neutrophils/100 WBC (Bld) N/A [facility] No Panel InformationOrdered By: Carla Hagan on 12-31-2022 Estimated GFR () > 60 mL/Min [facility] Comment on above: GFR estimated refere nce range: According to KDOQI guidelines, <60 ml/min/1.73m2 is sufficient to diagnose a patient with chronic kidney disease. Pharmacy Creatinine Clearance (Chem 45.60 [facility] Nucleated erythrocytes [Pres ence] in Blood by Automated countOrdered By: Carla Hagan on 12-31-2022 Nucleated RBC Auto Ql (Bld) N/A [facility] Phosphate [Mass/volume] in S kaveh or PlasmaOrdered By: Carla Hagan on 12-31-2022 Phosphate [Mass/Vol] 3.5 mg/dL 2.5-4.6 [facility] Platelet adequacy [Presence] in Blood by Light microscopyOrdered By: Carla Hagan on 12-31-2022 Platelets LM Ql (Bld) Normal Normal [facility] Platelet mean volume Auto (B ld) [Entitic vol]Ordered By: Carla Hagan on 12-31-2022 Platelet mean volume (Bld) [Entitic vol] 6.6 fL 6.3-10.7 [facility] Platelet morphology finding [Identifier] in BloodOrdered By: Carla Hagan on 12-31-2022 Platelet morphology finding Nom (Bld) Normal Normal [facility] Platelets Auto (Bld) [#/Vol] Ordered By: Carla Hagan on 12-31-2022 Platelets (Bld) [#/Vol] 447 10*3/uL 150-450 [facility] Poikilocytosis [Presence] in Blood by Light microscopyOrdered By: Carla Hagan on 12-31-2022 Poikilocytosis LM Ql (Bld) Slight [facility] Polychromasia [Presence] in Blood by Light microscopyOrdered By: Carla Hagan on 12-31-2022 Polychromasia LM Ql (Bld) Slight [facility] Potassium [Moles/volume] in Serum or PlasmaOrdered By: Carla Hagan on 12-31-2022 Potassium [Moles/Vol] 4.1 mmol/L 3.5-5.1 [facility] RBC Auto (Bld) [#/Vol]Ordere d By: Carla Hagan on 12-31-2022 RBC (Bld) [#/Vol] 3.86 10*6/uL 3.60-5.00 [facility] RBC morphologyOrdered By: Ra carey Hagan on 12-31-2022 RBC morphology finding Nom (Bld) N/A [facility] Segmented neutrophils/100 WB C Manual cnt (Bld)Ordered By: Carla Hagan on 12-31-2022 Segmented neutrophils/100 WBC (Bld) 86 % 50-70 [facility] Serum or plasma anion gap de terminationOrdered By: Carla Hagan on 12-31-2022 Anion gap [Moles/Vol] 12.9 mmol/L 6.0-15.0 [facility] Sodium [Moles/volume] in Ser um or PlasmaOrdered By: Carla Hagan on 12-31-2022 Sodium [Moles/Vol] 134 mmol/L 136-146 [facility] Urea nitrogen [Mass/volume] in Serum or PlasmaOrdered By: Carla Hagan on 12-31-2022 Urea nitrogen [Mass/Vol] 18 mg/dL 9-23 [facility] WBC Auto (Bld) [#/Vol]Ordere d By: Carla Hagan on 12-31-2022 WBC (Bld) [#/Vol] 13.4 10*3/uL 3.8-11.6 [facility] Creatine kinase [Enzymatic a ctivity/volume] in Serum or PlasmaOrdered By: Carla Hagan on 12-28-2022 CK [Catalytic activity/Vol] 108 U/L 22-269 [facility] Automated epithelial cells c ount in urine sediment (number/area)Ordered By: Maddy Morrissey on 12-27-2022 Epithelial cells Auto (Urine sed) [#/Area] 3-4 [HPF] 0-2 [facility] Automated erythrocytes count in urine sediment (number/area)Ordered By: Maddy Morrissey on 12-27-2022 RBC Auto (Urine sed) [#/Area] 0-1 [HPF] 0-4 [facility] Automated leukocytes count i n urine sediment (number/area)Ordered By: Maddy Morrissey on 12-27-2022 WBC Auto (Urine sed) [#/Area] 5-9 [HPF] 0-4 [facility] Bilirubin Test strip Ql (U)O rdered By: Maddy Morrissey on 12-27-2022 Bilirubin Ql (U) Negative Negative [facility] Color Auto (U)Ordered By: Corwin Morrissey on 12-27-2022 Color (U) Yellow Yellow [facility] Folate [Mass/volume] in Seru m or PlasmaOrdered By: Eve Mann on 12-27-2022 Folate [Mass/Vol] ng/mL >5.9 [facility] Comment on above: Folate reference ran ge: >5.9 ng/mlThe WHO technical consultation on folate and vitamin [id number] has determined that folate concentrations lessthan 4 ng/ml are considered deficient. Ketones Auto test strip (U) [Mass/Vol]Ordered By: Maddy Morrissey on 12-27-2022 Ketones (U) [Mass/Vol] Negative Negative [facility] Laboratory - Chemistry and C hemistry - challengeOrdered By: Eve Mann on 12-27-2022 Cobalamin (Vitamin B12) [Mass/Vol] 994 pg/mL 180-914 [facility] Nitrite Test strip Ql (U)Ord ered By: Maddy Morrissey on 12-27-2022 Nitrite Ql (U) Positive Negative [facility] Protein Auto test strip (U) [Mass/Vol]Ordered By: Maddy Morrissey on 12-27-2022 Protein (U) [Mass/Vol] Trace mg/dL Negative [facility] Specific gravity Auto test s trip (U) [Rel density]Ordered By: Maddy Morrissey on 12-27-2022 Specific gravity (U) [Rel density] > 1.050 1.001-1.03 0 [facility] Urine bacteria detection by automated methodOrdered By: Maddy Morrissey on 12-27-2022 Bacteria Auto Ql (U) 2+ None Seen [facility] Urine clarity by refractomet ry automatedOrdered By: Maddy Morrissey on 12-27-2022 Clarity Refractometry automated (U) Cloudy Clear [facility] Urine culture routineOrdered By: Maddy Morrissey on 12-27-2022 Bacteria identified Cx Nom (U) Escherichia coli [facility] Urine glucose measurement by automated test strip (mass/volume)Ordered By: Maddy Morrissey on 12-27-2022 Glucose Auto test strip (U) [Mass/Vol] Normal mg/dL Normal [facility] Urine hemoglobin detection b y automated test stripOrdered By: Maddy Morrissey on 12-27-2022 Hemoglobin Auto test strip Ql (U) Trace Negative [facility] Urine leukocyte esterase det ection by automated test stripOrdered By: Maddy Morrissey on 12-27-2022 Leukocyte esterase Auto test strip Ql (U) 3+ Negative [facility] Urobilinogen Auto test strip (U) [Mass/Vol]Ordered By: Maddy Morrissey on 12-27-2022 Urobilinogen (U) [Mass/Vol] Normal mg/dL Normal [facility] pH Auto test strip (U)Ordere d By: Maddy Morrissey on 12-27-2022 pH (U) 5.0 [pH] 5.0-9.0 [facility] Activated partial thrombopla stin time (aPTT) in platelet poor plasma by coagulation aOrdered By: Maddy Morrissey on 12-26-2022 aPTT Coag (PPP) [Time] 30.8 s 25.1-36.5 [facility] Basophils Auto (Bld) [#/Vol] Ordered By: Maddy Morrissey on 12-26-2022 Basophils (Bld) [#/Vol] 0.1 10*3/uL 0.0-0.2 [facility] Basophils/100 WBC Auto (Bld) Ordered By: Maddy Morrissey on 12-26-2022 Basophils/100 WBC (Bld) 0.5 % . [facility] Calcium [Mass/volume] in Ser um or PlasmaOrdered By: Maddy Morrissey on 12-26-2022 Calcium [Mass/Vol] 9.0 mg/dL 8.2-10.2 [facility] Carbon dioxide, total [Moles /volume] in Serum or PlasmaOrdered By: Maddy Morrissey on 12-26-2022 CO2 [Moles/Vol] 25.8 mmol/L 22.0-30.0 [facility] Chloride [Moles/volume] in S kaveh or PlasmaOrdered By: Maddy Morrissey on 12-26-2022 Chloride [Moles/Vol] 104 mmol/L 95-114 [facility] Creatinine and Glomerular fi ltration rate.predicted panel (S/P/Bld)Ordered By: Maddy Morrissey on 12-26-2022 Creatinine [Mass/Vol] 1.22 mg/dL 0.44-1.03 [facility] Eosinophils Auto (Bld) [#/Vo l]Ordered By: Maddy Morrissey on 12-26-2022 Eosinophils (Bld) [#/Vol] 0.1 10*3/uL 0.0-0.45 [facility] Eosinophils/100 WBC Auto (Bl d)Ordered By: Maddy Morrissey on 12-26-2022 Eosinophils/100 WBC (Bld) 1.1 % . [facility] Erythrocyte distribution wid th Auto (RBC) [Ratio]Ordered By: Maddy Morrissey on 12-26-2022 Erythrocyte distribution width (RBC) [Ratio] 15.9 % 11.9-15.3 [facility] Estimated glomerular filtrat ion rate (GFR) non- AmericanOrdered By: Maddy Morrissey on 12-26-2022 GFR/1.73 sq M.predicted among non-blacks MDRD (S/P/Bld) [Vol rate/Area] 43 mL/Min [facility] Glucose [Mass/volume] in Ser um or PlasmaOrdered By: Maddy Morrissey on 12-26-2022 Glucose [Mass/Vol] 128 mg/dL 70-100 [facility] Comment on above: ADA recommended refe rence rangeRandom Glucose Reference Range is dependent on time and content of last meal. Glucose of more than 200 mg/dL in a nonstressed, ambulatory subject supports the diagnosis of Diabetes Mellitus. Hematocrit Auto (Bld) [Volum e fraction]Ordered By: Maddy Morrissey on 12-26-2022 Hematocrit (Bld) [Volume fraction] 29.7 % 34.0-46.4 [facility] Hemoglobin [Mass/volume] in BloodOrdered By: Maddy Morrissey on 12-26-2022 Hemoglobin (Bld) [Mass/Vol] 9.3 g/dL 11.8-15.4 [facility] Laboratory - Chemistry and C hemistry - challengeOrdered By: Maddy Morrissey on 12-26-2022 Natriuretic peptide B (Bld) [Mass/Vol] 49.0 pg/mL 5-100 [facility] Laboratory - CoagulationOrde red By: Maddy Morrissey on 12-26-2022 PT Coag (PPP) [Time] 14.5 s 9.0-12.9 [facility] Leukocytes [#/volume] correc juma for nucleated erythrocytes in Blood by Automated counOrdered By: Maddy Morrissey on 12-26-2022 WBC corrected for nucl RBC Auto (Bld) [#/Vol] 12.0 10*3/uL 3.8-11.6 [facility] Lymphocytes Auto (Bld) [#/Vo l]Ordered By: Maddy Morrissey on 12-26-2022 Lymphocytes (Bld) [#/Vol] 3.0 10*3/uL 1.00-4.8 [facility] Lymphocytes/100 WBC Auto (Bl d)Ordered By: Maddy Morrissey on 12-26-2022 Lymphocytes/100 WBC (Bld) 24.8 % . [facility] MCH Auto (RBC) [Entitic mass ]Ordered By: Maddy Morrissey on 12-26-2022 MCH (RBC) [Entitic mass] 24.8 pg 24.7-34.3 [facility] MCHC Auto (RBC) [Mass/Vol]Or dered By: Maddy Morrissey on 12-26-2022 MCHC (RBC) [Mass/Vol] 31.2 g/dL 32.0-35.0 [facility] MCV Auto (RBC) [Entitic vol] Ordered By: Maddy Morrissey on 12-26-2022 MCV (RBC) [Entitic vol] 79.4 fL 80-100 [facility] Monocyte distribution width [Entitic volume] in Blood by AutomatedOrdered By: Maddy Morrissey on 12-26-2022 Monocyte distribution width Auto (Bld) [Entitic vol] 20.22 % 0.00-20.00 [facility] Comment on above: For adults in ED, MD W > 20.0 may be associated with a higher risk of sepsis during the first 12 hrs of hospital admission Monocytes Auto (Bld) [#/Vol] Ordered By: Maddy Morrissey on 12-26-2022 Monocytes (Bld) [#/Vol] 1.2 10*3/uL 0.0-0.8 [facility] Monocytes/100 WBC Auto (Bld) Ordered By: Maddy Morrissey on 12-26-2022 Monocytes/100 WBC (Bld) 10.1 % . [facility] Neutrophils Auto (Bld) [#/Vo l]Ordered By: Maddy Morrissey on 12-26-2022 Neutrophils (Bld) [#/Vol] 7.6 10*3/uL 1.8-7.7 [facility] Neutrophils/100 WBC Auto (Bl d)Ordered By: Maddy Morrissey on 12-26-2022 Neutrophils/100 WBC (Bld) 63.5 % . [facility] No Panel InformationOrdered By: Maddy Morrissey on 12-26-2022 Estimated GFR () 52 mL/Min [facility] Comment on above: GFR estimated refere nce range: According to KDOQI guidelines, <60 ml/min/1.73m2 is sufficient to diagnose a patient with chronic kidney disease. Pharmacy Creatinine Clearance (Chem 37.20 [facility] Nucleated erythrocytes [Pres ence] in Blood by Automated countOrdered By: Maddy Morrissey on 12-26-2022 Nucleated RBC Auto Ql (Bld) 0.1 /100{WBC} 0-0.5 [facility] Platelet mean volume Auto (B ld) [Entitic vol]Ordered By: Maddy Morrissey on 12-26-2022 Platelet mean volume (Bld) [Entitic vol] 6.5 fL 6.3-10.7 [facility] Platelet poor plasma interna tional normalized ratio (INR) by coagulation assay (relatOrdered By: Maddy Morrissey on 12-26-2022 INR Coag (PPP) [Relative time] 1.3 {INR} [facility] Comment on above: INR Therapeutic Rang e A) Pre- and Peroperative OAT started two weeks before surgery. NOT HIP SURGERY: 1.5 - 2.5 HIP SURGERY: 2 - 3B) Primary and secondary prevention of venous THROMBOSIS: 2 - 3C) Active venous thrombosis, pulmonary embolismand prevention of recurrent venous thrombosis: 2 - 3D) Prevention of arterial thromboembolismincluding patients with mechanical heart valves: 3 - 4.5 Platelets Auto (Bld) [#/Vol] Ordered By: Maddy Morrissey on 12-26-2022 Platelets (Bld) [#/Vol] 450 10*3/uL 150-450 [facility] Potassium [Moles/volume] in Serum or PlasmaOrdered By: Maddy Morrissey on 12-26-2022 Potassium [Moles/Vol] 3.9 mmol/L 3.5-5.1 [facility] RBC Auto (Bld) [#/Vol]Ordere d By: Maddy Morrissey on 12-26-2022 RBC (Bld) [#/Vol] 3.74 10*6/uL 3.60-5.00 [facility] Serum or plasma anion gap de terminationOrdered By: Maddy Morrissey on 12-26-2022 Anion gap [Moles/Vol] 10.1 mmol/L 6.0-15.0 [facility] Sodium [Moles/volume] in Ser um or PlasmaOrdered By: Maddy Morrissey on 12-26-2022 Sodium [Moles/Vol] 136 mmol/L 136-146 [facility] Troponin I.cardiac [Mass/vol ume] in Serum or Plasma by High sensitivity methodOrdered By: Maddy Morrissey on 12-26-2022 Troponin I.cardiac High sensitivity method [Mass/Vol] 6 pg/mL 0-15 [facility] Urea nitrogen [Mass/volume] in Serum or PlasmaOrdered By: Maddy Morrissey on 12-26-2022 Urea nitrogen [Mass/Vol] 21 mg/dL 9-23 [facility] WBC Auto (Bld) [#/Vol]Ordere d By: Maddy Morrissey on 12-26-2022 WBC (Bld) [#/Vol] 12.0 10*3/uL 3.8-11.6 [facility] Basophils Auto (Bld) [#/Vol] Ordered By: Hilario Yeung on 05-31-2022 Basophils (Bld) [#/Vol] 0.0 10*3/uL 0.0-0.2 [facility] Basophils/100 WBC Auto (Bld) Ordered By: Hilario Yeung on 05-31-2022 Basophils/100 WBC (Bld) 0.7 % . [facility] Blood hemoglobin measurement (mass/volume)Ordered By: Hilario Yeung on 05-31-2022 Hemoglobin (Bld) [Mass/Vol] 11.6 g/dL 11.8-15.4 [facility] Blood leukocytes automated c ount (number/volume)Ordered By: Hilario Yeung on 05-31-2022 WBC (Bld) [#/Vol] 5.9 10*3/uL 4.5-11.0 [facility] Creatinine and Glomerular fi ltration rate.predicted panel (S/P/Bld)Ordered By: Hilario Yeung on 05-31-2022 Creatinine [Mass/Vol] 1.22 mg/dL 0.44-1.03 [facility] Eosinophils Auto (Bld) [#/Vo l]Ordered By: Hilario Yeung on 05-31-2022 Eosinophils (Bld) [#/Vol] 0.3 10*3/uL 0.0-0.45 [facility] Eosinophils/100 WBC Auto (Bl d)Ordered By: Hilario Yeung on 05-31-2022 Eosinophils/100 WBC (Bld) 4.4 % . [facility] Erythrocyte distribution wid th Auto (RBC) [Ratio]Ordered By: Hilario Yeung on 05-31-2022 Erythrocyte distribution width (RBC) [Ratio] 16.9 % 11.9-15.3 [facility] Estimated glomerular filtrat ion rate (GFR) non- AmericanOrdered By: Hilario Yeung on 05-31-2022 GFR/1.73 sq M.predicted among non-blacks MDRD (S/P/Bld) [Vol rate/Area] 43 mL/Min [facility] Hematocrit Auto (Bld) [Volum e fraction]Ordered By: Hilario Yeung on 05-31-2022 Hematocrit (Bld) [Volume fraction] 36.6 % 34.0-46.4 [facility] Laboratory - Hematology and Cell countsOrdered By: Hilario Yeung on 05-31-2022 Nucleated RBC/100 WBC (Bld) [Ratio] 0.1 % 0-0.5 [facility] Lymphocytes Auto (Bld) [#/Vo l]Ordered By: Hilario Yeung on 05-31-2022 Lymphocytes (Bld) [#/Vol] 2.4 10*3/uL 1.00-4.8 [facility] Lymphocytes/100 WBC Auto (Bl d)Ordered By: Hilario Yeung on 05-31-2022 Lymphocytes/100 WBC (Bld) 41.3 % . [facility] MCH Auto (RBC) [Entitic mass ]Ordered By: Hilario Yeung on 05-31-2022 MCH (RBC) [Entitic mass] 25.8 pg 24.7-34.3 [facility] MCHC Auto (RBC) [Mass/Vol]Or dered By: Hilario Yeung on 05-31-2022 MCHC (RBC) [Mass/Vol] 31.7 g/dL 32.0-35.0 [facility] MCV Auto (RBC) [Entitic vol] Ordered By: Hilario Yeung on 05-31-2022 MCV (RBC) [Entitic vol] 81.4 fL 80-100 [facility] Monocytes Auto (Bld) [#/Vol] Ordered By: Hilario Yeung on 05-31-2022 Monocytes (Bld) [#/Vol] 0.6 10*3/uL 0.0-0.8 [facility] Monocytes/100 WBC Auto (Bld) Ordered By: Hilario Yeung on 05-31-2022 Monocytes/100 WBC (Bld) 10.6 % . [facility] Neutrophils Auto (Bld) [#/Vo l]Ordered By: Hilario Yeung on 05-31-2022 Neutrophils (Bld) [#/Vol] 2.5 10*3/uL 1.8-7.7 [facility] Neutrophils/100 WBC Auto (Bl d)Ordered By: Hilario Yeung on 05-31-2022 Neutrophils/100 WBC (Bld) 43.0 % . [facility] No Panel InformationOrdered By: Hilario Yeung on 05-31-2022 Estimated GFR () 52 mL/Min [facility] Comment on above: GFR estimated refere nce range: According to KDOQI guidelines, <60 ml/min/1.73m2 is sufficient to diagnose a patient with chronic kidney disease. Pharmacy Creatinine Clearance (Chem 39.11 [facility] Platelet mean volume Auto (B ld) [Entitic vol]Ordered By: Hilario Yeung on 05-31-2022 Platelet mean volume (Bld) [Entitic vol] 7.5 fL 6.3-10.7 [facility] Platelets Auto (Bld) [#/Vol] Ordered By: Hilario Yeung on 05-31-2022 Platelets (Bld) [#/Vol] 209 10*3/uL 150-450 [facility] RBC Auto (Bld) [#/Vol]Ordere d By: Hilario Yeung on 05-31-2022 RBC (Bld) [#/Vol] 4.50 10*6/uL 3.60-5.00 [facility] Serum or plasma calcium roly urement (mass/volume)Ordered By: Hilario Yeung on 05-31-2022 Calcium [Mass/Vol] 9.1 mg/dL 8.2-10.2 [facility] Serum or plasma chloride deirdre surement (moles/volume)Ordered By: Hilario Yeung on 05-31-2022 Chloride [Moles/Vol] 100 mmol/L 95-114 [facility] Serum or plasma glucose roly urement (mass/volume)Ordered By: Hilario Yeung on 05-31-2022 Glucose [Mass/Vol] 99 mg/dL 70-100 [facility] Comment on above: ADA recommended refe rence range Random Glucose Reference Range is dependent on time and content of last meal. Glucose of more than 200 mg/dL in a nonstressed, ambulatory subject supports the diagnosis of Diabetes Mellitus. Serum or plasma potassium me asurement (moles/volume)Ordered By: Hilario Yeung on 05-31-2022 Potassium [Moles/Vol] 4.2 mmol/L 3.5-5.1 [facility] Serum or plasma sodium measu rement (moles/volume)Ordered By: Hilario Yeung on 05-31-2022 Sodium [Moles/Vol] 138 mmol/L 136-146 [facility] Serum or plasma total carbon dioxide measurement (moles/volume)Ordered By: Hilario Yeung on 05-31-2022 CO2 [Moles/Vol] 29.7 mmol/L 22.0-30.0 [facility] Serum or plasma urea nitroge n measurement (mass/volume)Ordered By: Hilario Yeung on 05-31-2022 Urea nitrogen [Mass/Vol] 13 mg/dL 9-23 [facility] SCREENING MAMMOGRAM W/LELAND, BILATERAL*on 04-27-2022 SCREENING MAMMOGRAM W/LELAND, BILATERAL* CLINICAL HISTORY: Screening Mammogram COMPARISON: Priors dating back to 2016 TECHNIQUE: 2D and 3D mammogram imaging of both breasts was performed. RESULT: DENSITY: There are scattered areas of fibroglandular density. There is no suspicious mass, asymmetry, architectural distortion, or calcification. No significant change since the prior mammograms. IMPRESSION: BIRADS 1 : NEGATIVE, NORMAL INTERVAL FOLLOW UP FOLLOW-UP: 12 months DENSITY: Scattered MAMMOGRAPHY IS VERY IMPORTANT TO YOUR HEALTH. THE CURRENT [employer] GUIDELINES RECOMMENDS ANNUAL MAMMOGRAPHY BEGINNING AT AGE 40 THIS FACILITY USES A REMINDER SYSTEM TO ENSURE ALL PATIENTS RECEIVE REMINDER NOTIFICATIONS AT THE APPROPRIATE TIME BASED ON THE RECOMMENDATIONS OF THIS EXAM. Board Certified Radiologist. Accredited by the ACR and FDA. Report reported and signed by Edgar Hooper on 05/01/2022 0[address] [facility] [address] Low Dose Lung Screeningon 04-26-2022 CT Low Dose Lung Screening HISTORY: Smoking history. Asthma. COPD. COMPARISON: CT chest 03/03/2021 TECHNIQUE: Multiple axial images of the chest were obtained without enhancement. Multiplanar reformats were acquired at the CT console. All CT scans at this facility use dose modulation, iterative reconstruction, and/or weight based dosing when appropriate to reduce radiation dose to as low as reasonably achievable. FINDINGS: Visualized thyroid gland is within normal limits. No axillary or mediastinal lymphadenopathy. No hilar lymphadenopathy identified on this unenhanced CT of the chest. No thoracic aortic aneurysm. Atherosclerotic calcification of the thoracic aorta. The esophagus is within normal limits. Heart size is within normal limits. Coronary artery calcifications are identified. No significant pericardial effusion. Esophagus is within normal limits. No pulmonary nodule or mass. No consolidation, pleural effusion, or focal consolidation. No acute osseous abnormality. Visualized upper abdomen demonstrates no acute abnormality. IMPRESSION: Lung RADS score 1. Continue annual screening with low-dose CT in 12 months. Evidence of coronary artery disease. Report reported and signed by Devonte Gomez on 04/27/2022 1239 Normal [facility] XR Hip Complete Left*on 02-25 XR Hip Complete Left* CLINICAL HISTORY: Left hip pain. COMPARISON: None available. TECHNIQUE: An AP radiograph of the pelvis and AP and lateral radiographs of the left hip were obtained. FINDINGS: A proximal left femoral nail is present with a healed intertrochanteric fracture with mild deformity and mild adjacent heterotopic ossification. Mild osteoarthritic changes are present at both hips. There is no acute fracture, dislocation, pelvic diastases, radiographic evidence of avascular necrosis, or other acute findings identified. The sacroiliac joints are unremarkable. IMPRESSION: CHRONIC AND DEGENERATIVE CHANGES, NOTED. NOTHING ACUTE OR DESTRUCTIVE IDENTIFIED. Report reported and signed by Wicho Bowman on 03/14/2022 1550 Normal [facility] XR Spine Lumbar 4+ Views*on 03-14-2022 XR Spine Lumbar 4+ Views* CLINICAL HISTORY: Low back and left hip pain. COMPARISON: None available. TECHNIQUE: AP, lateral, oblique, and coned-down AP and lateral radiographs of the lumbar spine were obtained. FINDINGS: The study is mildly limited by the patient's body habitus and motion on the lateral views. Mild rotary levoscoliosis of the thoracolumbar spine may be positional. Moderate hypertrophic facet changes are present, worsening inferiorly. Mild to moderate disc space of the mid to lower levels are present, with mild anterolisthesis of L3 over L4 is noted of approximately 4 to 5 mm and mild retrolisthesis of L4 over L5 of approximately 3 to 4 mm. There is no compression, fracture, worrisome bone destruction, or other acute findings identified. Atherosclerotic plaquing of the abdominal aorta and iliac arteries are noted. IMPRESSION: MODERATE LUMBAR SPONDYLOSIS, DESCRIBED. NOTHING ACUTE OR DESTRUCTIVE IDENTIFIED. Report reported and signed by Wicho Bowman on 03/14/2022 1546 Normal [facility] [place] [facility] EDILBERTOEAJessica 12-20-2020 GILBERTO Patient Outreach ([facility]) -- GERA PERDUE ([id number]) 1945 F Date Time Provider Department 12/20/20 DERICK LOPEZ During your visit today, we recorded the following information about you: Allergies As of Date: 12/20/2020 Noted Allergy Reaction ASPRIN (ASPIRIN) 03/02/2019 1 - Mental Status Change Date Reviewed: 05/04/2020 Reviewed by: Prasad Phillips - Fully Assessed Order(s):SARS-COVID VACCINE 1ST DOSE APPT [[id number]] Order #: [id number] FUTURE Prescriptions as of 12/20/2020 Sig: HYDROCODONE 5 MG-ACETAMINOPHE* Take 2 tablets by mouth every* OXYCODONE-ACETAMINOPHEN 5 MG-* Take 1-2 tablets by mouth marissa* Patient not taking: Reported on 03/02/2019 ERGOCALCIFEROL (VITAMIN D2) 1* Take 50,000 Units by mouth on* IPRATROPIUM 18 MCG-ALBUTEROL * Inhale 2 Puffs as instructed * SIMVASTATIN 40 MG TABLET Take 40 mg by mouth daily at * BUPROPION HCL 100 MG TABLET Take 100 mg by mouth twice da* LISINOPRIL 10 MG TABLET Take 10 mg by mouth once abby* METOPROLOL TARTRATE 100 MG TA* Take 100 mg by mouth once krunal* Problem List As Of Date 12/20/2020 Noted Resolved Attention to colostomy (HCC) [Z43.3] 05/27/2014 History of diverticulitis [Z87.19] 02/25/2015 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 Author Type: Physician Type: Progress Notes Filed: 05/04/2020 8:19 PM Note Text: Gera Perdue : 1945 Long-Term: [facility] PCP: guanako Date last seen: 04/2020 PAST MEDICAL HISTORY Diagnosis Date - Arthritis - COPD (chronic obstructive pulmonary disease) (HCC) - Diverticulitis - Emphysema NEC - Glaucoma - HTN (hypertension) - Hyperlipidemia - Umbilical hernia Current Outpatient Medications Medication Sig - HYDROcodone-acetaminophen (NORCO) 5-325 mg per tablet Take 2 tablets by mouth every 6 hours as needed. - oxyCODONE-acetaminophen (PERCOCET) 5-325 mg tablet Take 1-2 tablets by mouth every 4 hours as needed. (Patient not taking: Reported on 03/02/2019 ) - ergocalciferol, vitamin D2, (VITAMIN D) 50,000 unit capsule Take 50,000 Units by mouth once each week. - ipratropium-albuterol (COMBIVENT) 18-103 mcg/actuation inhaler Inhale 2 Puffs as instructed four times daily as needed for Wheezing/Shortness of Breath (for wheezing and shortness of breath.). - simvastatin 40 mg tablet Take 40 mg by mouth daily at bedtime. - buPROPion 100 mg tablet Take 100 mg by mouth twice daily. - lisinopril 10 mg tablet Take 10 mg by mouth once daily. - metoprolol tartrate, short acting, 100 mg tablet Take 100 mg by mouth once daily. No current facility-administered medications for this visit. ALLERGIES Allergen Reactions - Asprin [Aspirin] Mental Status Change Subjective: Gera is a 74 year old female who is not diabetic. Presents today for evaluation and treatment of painful digital nail deformity as well as generalized foot care . Patient has been unable to provide self nail care due to the severe nature of deformity which causes pain and pressure and limits the patients abilty to wear shoe gear without pain. Patient is advised not to attempt self care. Class B Findings: Decrease or absence of hair growth, Skin texture (thin, shiny) and Nail changes (thickening) Objective: Each digital nail on the right 1 and the left 1 is elongated, thickened, ridged, lysing with friable subungual debris which, after debridement from the underlying nail bed, reveals a characteristic fungal/yeast/mold odor and consistency. There is no surrounding cellulitis, deep incurvation, or evidence of bacterial infection. Class findings include diminished pedal pulses, lack of digital pedal hair growth, the above noted nail changes, some telangiectasias and lower leg edema bilaterally. Lower Extremity Edema: no edema. Assessment: Symptomatic onychomycosis digital nails toes 1 Rt 1 Lt. Examination of individual toenails: R5 is normal. R4 is normal. R3 is normal. R2 is normal. R1 is brittle, discolored, dystrophic, elongated, painful, yellow with subungual debris. L1 is brittle, discolored, dystrophic, elongated, painful, yellow, with subungual debris. L2 is normal. L3 is normal. L4 is normal. L5 is normal. Plan: The offending nail margins were mechanically and electrically debrided to the level of normal underlying nail bed with good relief obtained as evidenced by pain free palpation of the digits. The patient will be followed to maintain the length and thickness of their nails as best as possible. Patient relates painful ambulation. We will see her back on an as needed basis or sooner should problems arise. Patient was recommended walking, exercise Recommended: No Anti Fungal Aspirin long-term use (primary encounter diagnosis) Pain due to onychomycosis of toenail of left foot Pain due to onychomycosis of toenail of right foot Prasad Phillips DPM Normal [facility] CBC Auto Differentialon 10-0 Basophils (Bld) [#/Vol] 0.03 10*3/uL [place] Basophils/100 WBC (Bld) 0 % 0 - 2 % [place] Differential Type NOT REPORTED [place] Eosinophils (Bld) [#/Vol] 0.14 10*3/uL [place] Eosinophils/100 WBC (Bld) 2 % 1 - 4 % [place] Erythrocyte distribution width (RBC) [Ratio] 15.0 % High 11.8 - 14.4 % [place] Hematocrit (Bld) [Volume fraction] 32.7 % Low 36.3 - 47.1 % [place] Hemoglobin (Bld) [Mass/Vol] 9.9 g/dL Low 11.9 - 15.1 g/dL [place] Immature granulocytes (Bld) [#/Vol] 0.03 10*3/uL [place] Immature granulocytes (Bld) [#/Vol] 0 % 0 [place] Interpretation and review of laboratory results Abnormal [place] Lymphocytes (Bld) [#/Vol] 1.67 10*3/uL [place] Lymphocytes/100 WBC (Bld) 22 % Low 24 - 43 % [place] MCH (RBC) [Entitic mass] 27.7 pg 25.2 - 33.5 pg [place] MCHC (RBC) [Mass/Vol] 30.3 g/dL 28.4 - 34.8 g/dL [place] MCV (RBC) [Entitic vol] 91.3 fL 82.6 - 102.9 fL [place] Monocytes (Bld) [#/Vol] 1.00 10*3/uL [place] Monocytes/100 WBC (Bld) 13 % High 3 - 12 % [place] Platelet mean volume (Bld) [Entitic vol] 9.1 fL 8.1 - 13.5 fL [place] Platelets (Bld) [#/Vol] 184 10*3/uL [place] Platelets (Bld) [#/Vol] NOT REPORTED [place] RBC (Bld) [#/Vol] 3.58 10*6/uL Low 3.95 - 5.11 m/uL [place] RBC morphology finding Nom (Bld) ANISOCYTOSIS PRESENT [place] Segmented neutrophils/100 WBC (Bld) 63 % 36 - 65 % [place] Segs Absolute 4.63 [place] WBC (Bld) [#/Vol] 7.5 10*3/uL [place] WBC (Bld) [#/Vol] 0.0 10*3/uL 0.0 per 100 WBC [place] WBC Morphology NOT REPORTED [place] CBC with Diffon 08-04-2019 Abs. Basophil 0.03 k/uL Normal 0.00-0.20 [facility] Comment on above: Performed By: #### C DP #### [address] [address] Provider Network Mgr: Juan Perera MD Abs.Imm.Granulocyte 0.03 k/uL Normal 0.00-0.30 [facility] Comment on above: Performed By: #### C DP #### [address] [address] Provider Network Mgr: Juan Perera MD Abs.Neutrophil (Seg) 4.63 k/uL Normal 1.50-8.10 [facility] Comment on above: Performed By: #### C DP #### [address] [address] Provider Network Mgr: Juan Perera MD Basophils/100 WBC (Bld) 0 % Normal 0-2 [facility] Comment on above: Performed By: #### C DP #### [address] [address] Provider Network Mgr: Juan Perera MD Eosinophils (Bld) [#/Vol] 0.14 10*3/uL Normal 0.00-0.44 [facility] Comment on above: Performed By: #### C DP #### [address] [address] Provider Network Mgr: Juan Perera MD Eosinophils/100 WBC (Bld) 2 % Normal 1-4 [facility] Comment on above: Performed By: #### C DP #### [address] [address] Provider Network Mgr: Juan Perera MD Erythrocyte distribution width (RBC) [Ratio] 15.0 % High 11.8-14.4 [facility] Comment on above: Performed By: #### C DP #### [address] [address] Provider Network Mgr: Juan Perera MD Hematocrit (Bld) [Volume fraction] 32.7 % Low 36.3-47.1 [facility] Comment on above: Performed By: #### C DP #### [address] [address] Provider Network Mgr: Juan Perera MD Hemoglobin (Bld) [Mass/Vol] 9.9 g/dL Low 11.9-15.1 [facility] Comment on above: Performed By: #### C DP #### [place] [address] Provider Network Mgr: Juan Perera MD Immature granulocytes (Bld) [#/Vol] 0 % Normal 0 [facility] Comment on above: Performed By: #### C DP #### [address] [address] Provider Network Mgr: Juan Perera MD Lymphocytes (Bld) [#/Vol] 1.67 10*3/uL Normal 1.10-3.70 [facility] Comment on above: Performed By: #### C DP #### [address] [address] Provider Network Mgr: Juan Perera MD Lymphocytes/100 WBC (Bld) 22 % Low 24-43 [facility] Comment on above: Performed By: #### C DP #### [address] [address] Provider Network Mgr: Juan Perera MD MCH (RBC) [Entitic mass] 27.7 pg Normal 25.2-33.5 [facility] Comment on above: Performed By: #### C DP #### [address] [address] Provider Network Mgr: Juan Perrea MD MCHC (RBC) [Mass/Vol] 30.3 g/dL Normal 28.4-34.8 [facility] Comment on above: Performed By: #### C DP #### [address] [address] Provider Network Mgr: Juan Perera MD MCV (RBC) [Entitic vol] 91.3 fL Normal 82.6-102.9 [facility] Comment on above: Performed By: #### C DP #### [address] [address] Provider Network Mgr: Juan Perera MD Monocytes (Bld) [#/Vol] 1.00 10*3/uL Normal 0.10-1.20 [facility] Comment on above: Performed By: #### C DP #### [address] [address] Provider Network Mgr: Juan Perera MD Monocytes/100 WBC (Bld) 13 % High 3-12 [facility] Comment on above: Performed By: #### C DP #### [address] [address] Provider Network Mgr: Juan Perera MD Neutrophil (Seg) 63 % Normal 36-65 [facility] Comment on above: Performed By: #### C DP #### [address] [address] Provider Network Mgr: Juan Perera MD NRBC Automated 0.0 per 100 WBC Normal 0.0 [facility] Comment on above: Performed By: #### C DP #### [address] [address] Provider Network Mgr: Juan Perera MD Platelet mean volume (Bld) [Entitic vol] 9.1 fL Normal 8.1-13.5 [facility] Comment on above: Performed By: #### C DP #### [address] [address] Provider Network Mgr: Juan Perera MD Platelets (Bld) [#/Vol] 184 10*3/uL Normal 138-453 [facility] Comment on above: Performed By: #### C DP #### [address] [address] Provider Network Mgr: Juan Perera MD RBC (Bld) [#/Vol] 3.58 10*6/uL Low 3.95-5.11 [facility] Comment on above: Performed By: #### C DP #### [address] [address] Provider Network Mgr: Juan Perera MD RBC morphology finding Nom (Bld) ANISOCYTOSIS PRESENT Normal [facility] Comment on above: Performed By: #### C DP #### [address] [address] Provider Network Mgr: Juan Perera MD WBC (Bld) [#/Vol] 7.5 10*3/uL Normal 3.5-11.3 [facility] Comment on above: Performed By: #### C DP #### [address] [address] Provider Network Mgr: Juan Perera MD Auto Diff Performed NOT REPORTED Normal [facility] Comment on above: Performed By: #### C DP #### [address] [address] Provider Network Mgr: Juan Perera MD Platelets (Bld) [#/Vol] NOT REPORTED Normal [facility] Comment on above: Performed By: #### C DP #### [address] [address] [place] [address] Provider Network Mgr: Juan Perera MD WBC Morphology NOT REPORTED Normal [facility] Comment on above: Performed By: #### C DP #### [employer] [address] [place] [address] Provider Network Mgr: Juan Perera MD CBC Auto Differentialon 10 Basophils (Bld) [#/Vol] 0.04 10*3/uL [place] Basophils/100 WBC (Bld) 1 % 0 - 2 % [place] Differential Type NOT REPORTED [place] Eosinophils (Bld) [#/Vol] 0.19 10*3/uL [place] Eosinophils/100 WBC (Bld) 2 % 1 - 4 % [place] Erythrocyte distribution width (RBC) [Ratio] 15.5 % High 11.8 - 14.4 % [place] Hematocrit (Bld) [Volume fraction] 37.6 % 36.3 - 47.1 % [place] Hemoglobin (Bld) [Mass/Vol] 11.4 g/dL Low 11.9 - 15.1 g/dL [place] Immature granulocytes (Bld) [#/Vol] 10*3/uL [place] Immature granulocytes (Bld) [#/Vol] 0 % 0 [place] Interpretation and review of laboratory results Abnormal [place] Lymphocytes (Bld) [#/Vol] 1.70 10*3/uL [place] Lymphocytes/100 WBC (Bld) 22 % Low 24 - 43 % [place] MCH (RBC) [Entitic mass] 27.8 pg 25.2 - 33.5 pg [place] MCHC (RBC) [Mass/Vol] 30.3 g/dL 28.4 - 34.8 g/dL [place] MCV (RBC) [Entitic vol] 91.7 fL 82.6 - 102.9 fL [place] Monocytes (Bld) [#/Vol] 0.92 10*3/uL [place] Monocytes/100 WBC (Bld) 12 % 3 - 12 % [place] Platelet mean volume (Bld) [Entitic vol] 9.4 fL 8.1 - 13.5 fL [place] Platelets (Bld) [#/Vol] NOT REPORTED [place] Platelets (Bld) [#/Vol] 199 10*3/uL [place] RBC (Bld) [#/Vol] 4.10 10*6/uL 3.95 - 5.11 m/uL [place] RBC morphology finding Nom (Bld) ANISOCYTOSIS PRESENT [place] Segmented neutrophils/100 WBC (Bld) 63 % 36 - 65 % [place] Segs Absolute 4.97 [place] WBC (Bld) [#/Vol] 0.0 10*3/uL 0.0 per 100 WBC [place] WBC (Bld) [#/Vol] 7.8 10*3/uL [place] WBC Morphology NOT REPORTED [place] CBC with Diffon 08-03-2019 Abs. Basophil 0.04 k/uL Normal 0.00-0.20 [facility] Comment on above: Performed By: #### C DP, CP #### [facility] [address] [place] [address] Provider Network Mgr: Juan Perera MD Abs.Imm.Granulocyte <0.03 Normal 0.00-0.30 [facility] Comment on above: Performed By: #### C DP, CP #### [facility] [address] [place] [address] Provider Network Mgr: Juan Perera MD Abs.Neutrophil (Seg) 4.97 k/uL Normal 1.50-8.10 [facility] Comment on above: Performed By: #### C DP, CP #### [facility] [address] [place] [address] Provider Network Mgr: Juan Perera MD Basophils/100 WBC (Bld) 1 % Normal 0-2 [facility] Comment on above: Performed By: #### C DP, CP #### [address] [address] Provider Network Mgr: Juan Perera MD Eosinophils (Bld) [#/Vol] 0.19 10*3/uL Normal 0.00-0.44 [facility] Comment on above: Performed By: #### C DP, CP #### [address] [address] Provider Network Mgr: Juan Perera MD Eosinophils/100 WBC (Bld) 2 % Normal 1-4 [facility] Comment on above: Performed By: #### C DP, CP #### [place] [address] Provider Network Mgr: Juan Perera MD Erythrocyte distribution width (RBC) [Ratio] 15.5 % High 11.8-14.4 [facility] Comment on above: Performed By: #### C DP, CP #### [place] [address] Provider Network Mgr: Juan Perera MD Hematocrit (Bld) [Volume fraction] 37.6 % Normal 36.3-47.1 [facility] Comment on above: Performed By: #### C DP, CP #### [place] [address] Provider Network Mgr: Juan Perera MD Hemoglobin (Bld) [Mass/Vol] 11.4 g/dL Low 11.9-15.1 [facility] Comment on above: Performed By: #### C DP, CP #### [address] [address] Provider Network Mgr: Juan Perera MD Immature granulocytes (Bld) [#/Vol] 0 % Normal 0 [facility] Comment on above: Performed By: #### C DP, CP #### [place] [address] Provider Network Mgr: Juan Perera MD Lymphocytes (Bld) [#/Vol] 1.70 10*3/uL Normal 1.10-3.70 [facility] Comment on above: Performed By: #### C DP, CP #### [place] [address] Provider Network Mgr: Juan Perera MD Lymphocytes/100 WBC (Bld) 22 % Low 24-43 [facility] Comment on above: Performed By: #### C DP, CP #### [place] [address] Provider Network Mgr: Juan Perera MD MCH (RBC) [Entitic mass] 27.8 pg Normal 25.2-33.5 [facility] Comment on above: Performed By: #### C DP, CP #### [place] [address] Provider Network Mgr: Juan Perera MD MCHC (RBC) [Mass/Vol] 30.3 g/dL Normal 28.4-34.8 [facility] Comment on above: Performed By: #### C DP, CP #### [place] [address] Provider Network Mgr: Juan Perera MD MCV (RBC) [Entitic vol] 91.7 fL Normal 82.6-102.9 [facility] Comment on above: Performed By: #### C DP, CP #### [place] [address] Provider Network Mgr: Juan Perera MD Monocytes (Bld) [#/Vol] 0.92 10*3/uL Normal 0.10-1.20 [facility] Comment on above: Performed By: #### C DP, CP #### [address] [address] Provider Network Mgr: Juan Perera MD Monocytes/100 WBC (Bld) 12 % Normal 3-12 [facility] Comment on above: Performed By: #### C DP, CP #### [address] [address] Provider Network Mgr: Juan Perera MD Neutrophil (Seg) 63 % Normal 36-65 [facility] Comment on above: Performed By: #### C DP, CP #### [address] [address] Provider Network Mgr: Juan Perera MD NRBC Automated 0.0 per 100 WBC Normal 0.0 [facility] Comment on above: Performed By: #### C DP, CP #### [address] [address] Provider Network Mgr: Juan Perera MD Platelet mean volume (Bld) [Entitic vol] 9.4 fL Normal 8.1-13.5 [facility] Comment on above: Performed By: #### C DP, CP #### [address] [address] Provider Network Mgr: Juan Perera MD Platelets (Bld) [#/Vol] 199 10*3/uL Normal 138-453 [facility] Comment on above: Performed By: #### C DP, CP #### [address] [address] Provider Network Mgr: Juan Perera MD RBC (Bld) [#/Vol] 4.10 10*6/uL Normal 3.95-5.11 [facility] Comment on above: Performed By: #### C DP, CP #### [address] [address] Provider Network Mgr: Juan Perera MD RBC morphology finding Nom (Bld) ANISOCYTOSIS PRESENT Normal [facility] Comment on above: Performed By: #### C DP, CP #### [address] [address] Provider Network Mgr: Juan Perera MD WBC (Bld) [#/Vol] 7.8 10*3/uL Normal 3.5-11.3 [facility] Comment on above: Performed By: #### C DP, CP #### [address] [address] Provider Network Mgr: Juan Perera MD Auto Diff Performed NOT REPORTED Normal [facility] Comment on above: Performed By: #### C DP, CP #### [address] [address] Provider Network Mgr: Juan Perera MD Platelets (Bld) [#/Vol] NOT REPORTED Normal [facility] Comment on above: Performed By: #### C DP, CP #### [address] [address] Provider Network Mgr: Juan Perera MD WBC Morphology NOT REPORTED Normal [facility] Comment on above: Performed By: #### C DP, CP #### [address] [address] Provider Network Mgr: Juan Perera MD Comp Metabolic Profon 2018 (cont.) Normal [facility] Comment on above: Result Comment: Aver age GFR for 70 or more years old: 75 mL/min/1.73sq m Chronic Kidney Disease: <60 mL/min/1.73sq m Kidney failure: <15 mL/min/1.73sq m eGFR calculated using average adult body mass. Additional eGFR calculator available at: http://www.[employer]/multiple_crcl_2012.htm Performed By: #### C DP, CP #### [address] [address] Provider Network Mgr: Juan Perera MD Albumin [Mass/Vol] 2.7 g/dL Low 3.5-5.2 [facility] Comment on above: Performed By: #### C DP, CP #### [address] [address] Provider Network Mgr: Juan Perera MD Albumin/Globulin [Mass ratio] 0.8 {ratio} Low 1.0-2.5 [facility] Comment on above: Performed By: #### C DP, CP #### [address] [address] Provider Network Mgr: Juan Perera MD Alkaline Phos 65 U/L Normal 35-104 [facility] Comment on above: Performed By: #### C DP, CP #### [address] [address] Provider Network Mgr: Juan Perera MD ALT [Catalytic activity/Vol] 8 U/L Normal 5-33 [facility] Comment on above: Performed By: #### C DP, CP #### [address] [address] Provider Network Mgr: Juan Perera MD Anion gap [Moles/Vol] 12 mmol/L Normal 9-17 [facility] Comment on above: Performed By: #### C DP, CP #### [address] [address] Provider Network Mgr: Juan Perera MD AST [Catalytic activity/Vol] 13 U/L Normal <32 [facility] Comment on above: Performed By: #### C DP, CP #### [address] [address] Provider Network Mgr: Juan Perera MD Bilirubin Ql (U) 0.41 mg/dL Normal 0.3-1.2 [facility] Comment on above: Performed By: #### C DP, CP #### [facility] [address] [place] [address] Provider Network Mgr: Juan Perera MD Calcium [Mass/Vol] 8.3 mg/dL Low 8.6-10.4 [facility] Comment on above: Performed By: #### C DP, CP #### [facility] [address] [place] [address] Provider Network Mgr: Juan Perera MD Chloride [Moles/Vol] 108 mmol/L High 98-107 [facility] Comment on above: Performed By: #### C DP, CP #### [facility] [address] [place] [address] Provider Network Mgr: Juan Perera MD CO2 [Moles/Vol] 22 mmol/L Normal 20-31 [facility] Comment on above: Performed By: #### C DP, CP #### [facility] [address] [place] [address] Provider Network Mgr: Juan Perera MD Creatinine [Mass/Vol] 0.72 mg/dL Normal 0.50-0.90 [facility] Comment on above: Performed By: #### C DP, CP #### [facility] [address] [place] [address] Provider Network Mgr: Juan Perera MD GFR, Amer >60 Normal >60 [facility] Comment on above: Performed By: #### C DP, CP #### [facility] [address] [place] [address] Provider Network Mgr: Juan Perera MD GFR,non Amer >60 Normal >60 [facility] Comment on above: Performed By: #### C DP, CP #### [facility] [address] [place] [address] Provider Network Mgr: Juan Perera MD Glucose [Mass/Vol] 78 mg/dL Normal 70-99 [facility] Comment on above: Performed By: #### C DP, CP #### [address] [address] Provider Network Mgr: Juan Perera MD Potassium [Moles/Vol] 3.9 mmol/L Normal 3.7-5.3 [facility] Comment on above: Performed By: #### C DP, CP #### [address] [address] Provider Network Mgr: Juan Perera MD Protein [Mass/Vol] 6.2 g/dL Low 6.4-8.3 [facility] Comment on above: Performed By: #### C DP, CP #### [address] [address] Provider Network Mgr: Juan Perera MD Sodium [Moles/Vol] 142 mmol/L Normal 135-144 [facility] Comment on above: Performed By: #### C DP, CP #### [address] [address] Provider Network Mgr: Juan Perera MD Urea nitrogen [Mass/Vol] 11 mg/dL Normal 8-23 [facility] Comment on above: Performed By: #### C DP, CP #### [address] [address] Provider Network Mgr: Juan Perera MD BUN/CRE Ratio NOT REPORTED Normal 9-20 [facility] Comment on above: Performed By: #### C DP, CP #### [address] [address] Provider Network Mgr: Juan Perera MD Staging: NOT REPORTED Normal [facility] Comment on above: Performed By: #### C DP, CP #### [address] [address] Provider Network Mgr: Juan Perera MD Comprehensive Metabolic Pane harsha 08-03-2019 Albumin [Mass/Vol] 2.7 g/dL Low 3.5 - 5.2 g/dL [place] Albumin/Globulin [Mass ratio] 0.8 {ratio} Low [place] ALP [Catalytic activity/Vol] 65 U/L 35 - 104 U/L [place] ALT [Catalytic activity/Vol] 8 U/L 5 - 33 U/L [place] Anion gap [Moles/Vol] 12 mmol/L 9 - 17 mmol/L [place] AST [Catalytic activity/Vol] 13 U/L <32 [place] Bilirubin Ql (U) 0.41 mg/dL 0.3 - 1.2 mg/dL [place] Bun/Cre Ratio NOT REPORTED [place] Calcium [Mass/Vol] 8.3 mg/dL Low 8.6 - 10. 4 mg/dL [place] Chloride [Moles/Vol] 108 mmol/L High 98 - 10 7 mmol/L [place] CO2 [Moles/Vol] 22 mmol/L 20 - 31 mmol/L [place] Creatinine [Mass/Vol] 0.72 mg/dL 0.5 - 0.9 mg/dL [place] GFR >60 >60 mL/min [place] GFR Non- >60 >60 mL/min [place] GFR/1.73 sq M predicted among non-blacks MDRD (S/P/Bld) [Vol rate/Area] NOT REPORTED [place] GFR/1.73 sq M predicted among non-blacks MDRD (S/P/Bld) [Vol rate/Area] [place] Comment on above: Average GFR for 70 o r more years old: 75 mL/min/1.73sq m Chronic Kidney Disease: <60 mL/min/1.73sq m Kidney failure: <15 mL/min/1.73sq m eGFR calculated using average adult body mass. Additional eGFR calculator available at: http://www.[employer].BeatTheBushes/multiple_crcl_2012.htm Glucose [Mass/Vol] 78 mg/dL 70 - 99 mg/dL [place] Interpretation and review of laboratory results Abnormal [place] Potassium [Moles/Vol] 3.9 mmol/L 3.7 - 5.3 mmol/L [place] Protein [Mass/Vol] 6.2 g/dL Low 6.4 - 8.3 g/dL [place] Sodium [Moles/Vol] 142 mmol/L 135 - 144 mmol/L [place] Urea nitrogen [Mass/Vol] 11 mg/dL 8 - 23 mg/dL [place] XR ABDOMEN (KUB) (SINGLE AP VIEW)on 08-03-2019 XR ABDOMEN (KUB) (SINGLE AP VIEW) EXAMINATION: ONE SUPINE XRAY VIEW(S) OF THE ABDOMEN 08/03/2019 9:06 am COMPARISON: 08/02/2019 HISTORY: ORDERING SYSTEM PROVIDED HISTORY: SBO TECHNOLOGIST PROVIDED HISTORY: SBO Reason for Exam: supine FINDINGS: Nonspecific bowel gas pattern. No pathologic bowel dilatation. Gas throughout the colon. Rectal gas. Enteric tube within the stomach. No organomegaly. No suspicious calcifications. IMPRESSION: Nonspecific bowel gas pattern. Interpreted by: Jose Martin Hope MD Signed by: Jose Martin Hope MD 08/03/19 Final result Normal [facility] Nonspecific bowel ga s pattern. [place] Robert, Mhpn Incoming R adiant Results From [employer]/Pacs - 08/03/2019 9:28 AM EDT EXAMINATION: ONE SUPINE XRAY VIEW(S) OF THE ABDOMEN 08/03/2019 9:06 am COMPARISON: 08/02/2019 HISTORY: ORDERING SYSTEM PROVIDED HISTORY: SBO TECHNOLOGIST PROVIDED HISTORY: SBO Reason for Exam: supine FINDINGS: Nonspecific bowel gas pattern. No pathologic bowel dilatation. Gas throughout the colon. Rectal gas. Enteric tube within the stomach. No organomegaly. No suspicious calcifications. IMPRESSION: Nonspecific bowel gas pattern. [place] EXAMINATION: ONE SUP INE XRAY VIEW(S) OF THE ABDOMEN 08/03/2019 9:06 am COMPARISON: 08/02/2019 HISTORY: ORDERING SYSTEM PROVIDED HISTORY: SBO TECHNOLOGIST PROVIDED HISTORY: SBO Reason for Exam: supine FINDINGS: Nonspecific bowel gas pattern. No pathologic bowel dilatation. Gas throughout the colon. Rectal gas. Enteric tube within the stomach. No organomegaly. No suspicious calcifications. [place] CBC Auto Differentialon 10-0 Basophils (Bld) [#/Vol] 0.03 10*3/uL [place] Basophils/100 WBC (Bld) 0 % 0 - 2 % [place] Differential Type NOT REPORTED [place] Eosinophils (Bld) [#/Vol] 0.17 10*3/uL [place] Eosinophils/100 WBC (Bld) 2 % 1 - 4 % [place] Erythrocyte distribution width (RBC) [Ratio] 15.6 % High 11.8 - 14.4 % [place] Hematocrit (Bld) [Volume fraction] 36.3 % 36.3 - 47.1 % [place] Hemoglobin (Bld) [Mass/Vol] 11.7 g/dL Low 11.9 - 15.1 g/dL [place] Immature granulocytes (Bld) [#/Vol] 0 % 0 [place] Immature granulocytes (Bld) [#/Vol] 0.03 10*3/uL [place] Interpretation and review of laboratory results Abnormal [place] Lymphocytes (Bld) [#/Vol] 1.85 10*3/uL [place] Lymphocytes/100 WBC (Bld) 20 % Low 24 - 43 % [place] MCH (RBC) [Entitic mass] 27.9 pg 25.2 - 33.5 pg [place] MCHC (RBC) [Mass/Vol] 32.2 g/dL 28.4 - 34.8 g/dL [place] MCV (RBC) [Entitic vol] 86.6 fL 82.6 - 102.9 fL [place] Monocytes (Bld) [#/Vol] 1.08 10*3/uL [place] Monocytes/100 WBC (Bld) 12 % 3 - 12 % [place] Platelet mean volume (Bld) [Entitic vol] 9.3 fL 8.1 - 13.5 fL [place] Platelets (Bld) [#/Vol] 215 10*3/uL [place] Platelets (Bld) [#/Vol] NOT REPORTED [place] RBC (Bld) [#/Vol] 4.19 10*6/uL 3.95 - 5.11 m/uL [place] RBC morphology finding Nom (Bld) ANISOCYTOSIS PRESENT [place] Segmented neutrophils/100 WBC (Bld) 66 % High 36 - 65 % [place] Segs Absolute 6.12 [place] WBC (Bld) [#/Vol] 9.3 10*3/uL [place] WBC (Bld) [#/Vol] 0.0 10*3/uL 0.0 per 100 WBC [place] WBC Morphology NOT REPORTED [place] CBC with Diffon 08-02-2019 Abs. Basophil 0.03 k/uL Normal 0.00-0.20 [facility] Comment on above: Performed By: #### L ARAMIS HO, REJEC #### [facility] [address] [place] [address] Provider Network Mgr: Juan Perera MD Abs.Imm.Granulocyte 0.03 k/uL Normal 0.00-0.30 [facility] Comment on above: Performed By: #### L ARAMIS HO, REJEC #### [facility] [address] [place] [address] Provider Network Mgr: Juan Perera MD Abs.Neutrophil (Seg) 6.12 k/uL Normal 1.50-8.10 [facility] Comment on above: Performed By: #### L ARAMIS HO, REJEC #### [facility] [address] [place] [address] Provider Network Mgr: Juan Perera MD Basophils/100 WBC (Bld) 0 % Normal 0-2 [facility] Comment on above: Performed By: #### L ACWSandi CDP, REJEC #### [address] [address] Provider Network Mgr: Juan Perera MD Eosinophils (Bld) [#/Vol] 0.17 10*3/uL Normal 0.00-0.44 [facility] Comment on above: Performed By: #### L ACWSandi CDP, REJEC #### [address] [address] Provider Network Mgr: Juan Perera MD Eosinophils/100 WBC (Bld) 2 % Normal 1-4 [facility] Comment on above: Performed By: #### L ACWARAMIS Junior, REJEC #### [address] [address] Provider Network Mgr: Juan Perera MD Immature granulocytes (Bld) [#/Vol] 0 % Normal 0 [facility] Comment on above: Performed By: #### L ACARAMIS GARY, REJEC #### [place] [address] Provider Network Mgr: Juan Perera MD Lymphocytes (Bld) [#/Vol] 1.85 10*3/uL Normal 1.10-3.70 [facility] Comment on above: Performed By: #### L ACWARAMIS Junior, REJEC #### [address] [address] Provider Network Mgr: Juan Perera MD Lymphocytes/100 WBC (Bld) 20 % Low 24-43 [facility] Comment on above: Performed By: #### L ACWSandi CDP, REJEC #### [address] [address] Provider Network Mgr: Juan Perera MD Monocytes (Bld) [#/Vol] 1.08 10*3/uL Normal 0.10-1.20 [facility] Comment on above: Performed By: #### L ACWB CDP, REJEC #### [facility] [address] [place] [address] Provider Network Mgr: Juan Perera MD Monocytes/100 WBC (Bld) 12 % Normal 3-12 [facility] Comment on above: Performed By: #### L ACWB, CDP, REJEC #### [address] [address] Provider Network Mgr: Juan Perera MD Neutrophil (Seg) 66 % High 36-65 [facility] Comment on above: Performed By: #### L ACWB CDP, REJEC #### [address] [address] Provider Network Mgr: Juan Perera MD RBC morphology finding Nom (Bld) ANISOCYTOSIS PRESENT Normal [facility] Comment on above: Performed By: #### L ACWB CDP, REJEC #### [facility] [address] [place] [address] Provider Network Mgr: Juan Perera MD Erythrocyte distribution width (RBC) [Ratio] 15.6 % High 11.8-14.4 [facility] Comment on above: Performed By: #### L ACWARAMIS Junior, REJEC #### [address] [address] Provider Network Mgr: Juan Perera MD Hematocrit (Bld) [Volume fraction] 36.3 % Normal 36.3-47.1 [facility] Comment on above: Performed By: #### L ACWB CDP, REJEC #### [facility] [address] [place] [address] Provider Network Mgr: Juan Perera MD Hemoglobin (Bld) [Mass/Vol] 11.7 g/dL Low 11.9-15.1 [facility] Comment on above: Performed By: #### L ACWB CDP, REJEC #### [address] [address] Provider Network Mgr: Juan Perera MD MCH (RBC) [Entitic mass] 27.9 pg Normal 25.2-33.5 [facility] Comment on above: Performed By: #### L ACWSandi CDP, REJEC #### [address] [address] Provider Network Mgr: Juan Perera MD MCHC (RBC) [Mass/Vol] 32.2 g/dL Normal 28.4-34.8 [facility] Comment on above: Performed By: #### L ARAMIS HO, REJEC #### [address] [address] Provider Network Mgr: Juan Perera MD MCV (RBC) [Entitic vol] 86.6 fL Normal 82.6-102.9 [facility] Comment on above: Performed By: #### L ARAMIS HO, REJEC #### [address] [address] Provider Network Mgr: Juan Perera MD NRBC Automated 0.0 per 100 WBC Normal 0.0 [facility] Comment on above: Performed By: #### L ARAMIS HO, REJEC #### [address] [address] Provider Network Mgr: Juan Perera MD Platelet mean volume (Bld) [Entitic vol] 9.3 fL Normal 8.1-13.5 [facility] Comment on above: Performed By: #### L ACARAMIS GARY, REJEC #### [address] [address] Provider Network Mgr: Juan Perera MD Platelets (Bld) [#/Vol] 215 10*3/uL Normal 138-453 [facility] Comment on above: Performed By: #### L ACWB, CDP, REJEC #### [facility] [address] [place] [address] Provider Network Mgr: Juan Perera MD RBC (Bld) [#/Vol] 4.19 10*6/uL Normal 3.95-5.11 [facility] Comment on above: Performed By: #### L ACWB, CDP, REJEC #### [facility] [address] [place] [address] Provider Network Mgr: Juan Perera MD WBC (Bld) [#/Vol] 9.3 10*3/uL Normal 3.5-11.3 [facility] Comment on above: Performed By: #### L ACWB, CDP, REJEC #### [facility] [address] [place] [address] Provider Network Mgr: Juan Perera MD Auto Diff Performed NOT REPORTED Normal [facility] Comment on above: Performed By: #### L ACWB, CDP, REJEC #### [address] [address] Provider Network Mgr: Juan Perera MD Platelets (Bld) [#/Vol] NOT REPORTED Normal [facility] Comment on above: Performed By: #### L ACWB, CDP, REJEC #### [facility] [address] [place] [address] Provider Network Mgr: Juan Perera MD WBC Morphology NOT REPORTED Normal [facility] Comment on above: Performed By: #### L ACWB, CDP, REJEC #### [facility] [address] [place] [address] Provider Network Mgr: Juan Perera MD Comp Metabolic Profon 2018 (cont.) Normal [facility] Comment on above: Result Comment: Aver age GFR for 70 or more years old: 75 mL/min/1.73sq m Chronic Kidney Disease: <60 mL/min/1.73sq m Kidney failure: <15 mL/min/1.73sq m eGFR calculated using average adult body mass. Additional eGFR calculator available at: http://www.[employer]/multiple_crcl_2012.htm Performed By: #### C P #### [address] [address] Provider Network Mgr: Juan Perera MD Albumin [Mass/Vol] 3.1 g/dL Low 3.5-5.2 [facility] Comment on above: Performed By: #### C P #### [address] [address] Provider Network Mgr: Juan Perera MD Albumin/Globulin [Mass ratio] 0.9 {ratio} Low 1.0-2.5 [facility] Comment on above: Performed By: #### C P #### [address] [address] Provider Network Mgr: Juan Perera MD Alkaline Phos 68 U/L Normal 35-104 [facility] Comment on above: Performed By: #### C P #### [address] [address] Provider Network Mgr: Juan Perera MD ALT [Catalytic activity/Vol] 8 U/L Normal 5-33 [facility] Comment on above: Performed By: #### C P #### [address] [address] Provider Network Mgr: Juan Perera MD Anion gap [Moles/Vol] 9 mmol/L Normal 9-17 [facility] Comment on above: Performed By: #### C P #### [address] [address] Provider Network Mgr: Juan Perera MD AST [Catalytic activity/Vol] 11 U/L Normal <32 [facility] Comment on above: Performed By: #### C P #### [address] [address] Provider Network Mgr: Juan Perera MD Bilirubin Ql (U) 0.39 mg/dL Normal 0.3-1.2 [facility] Comment on above: Performed By: #### C P #### [address] [address] Provider Network Mgr: Juan Perera MD Calcium [Mass/Vol] 8.6 mg/dL Normal 8.6-10.4 [facility] Comment on above: Performed By: #### C P #### [address] [address] Provider Network Mgr: Juan Perera MD Chloride [Moles/Vol] 106 mmol/L Normal 98-107 [facility] Comment on above: Performed By: #### C P #### [address] [address] Provider Network Mgr: Juan Perera MD CO2 [Moles/Vol] 25 mmol/L Normal 20-31 [facility] Comment on above: Performed By: #### C P #### [address] [address] Provider Network Mgr: Juan Perera MD Creatinine [Mass/Vol] 0.68 mg/dL Normal 0.50-0.90 [facility] Comment on above: Performed By: #### C P #### [address] [address] Provider Network Mgr: Juan Perera MD GFR, Amer >60 Normal >60 [facility] Comment on above: Performed By: #### C P #### [address] [address] Provider Network Mgr: Juan Perera MD GFR,non Amer >60 Normal >60 [facility] Comment on above: Performed By: #### C P #### [address] [address] Provider Network Mgr: Juan Perera MD Glucose [Mass/Vol] 108 mg/dL High 70-99 [facility] Comment on above: Performed By: #### C P #### [address] [address] Provider Network Mgr: Juan Perera MD Potassium [Moles/Vol] 3.8 mmol/L Normal 3.7-5.3 [facility] Comment on above: Performed By: #### C P #### [address] [address] Provider Network Mgr: Juan Perera MD Protein [Mass/Vol] 6.4 g/dL Normal 6.4-8.3 [facility] Comment on above: Performed By: #### C P #### [address] [address] Provider Network Mgr: Juan Perera MD Sodium [Moles/Vol] 140 mmol/L Normal 135-144 [facility] Comment on above: Performed By: #### C P #### [address] [address] Provider Network Mgr: Juan Perera MD Urea nitrogen [Mass/Vol] 14 mg/dL Normal 8-23 [facility] Comment on above: Performed By: #### C P #### [address] [address] Provider Network Mgr: Juan Perera MD BUN/CRE Ratio NOT REPORTED Normal -20 [facility] Comment on above: Performed By: #### C P #### [address] [address] Provider Network Mgr: Juan Perera MD Staging: NOT REPORTED Normal [facility] Comment on above: Performed By: #### C P #### [facility] [address] [phone] Provider Network Mgr: Juan Perera MD Comprehensive Metabolic Pane harsha 08-02-2019 Albumin [Mass/Vol] 3.1 g/dL Low 3.5 - 5.2 g/dL [place] Albumin/Globulin [Mass ratio] 0.9 {ratio} Low [place] ALP [Catalytic activity/Vol] 68 U/L 35 - 104 U/L [place] ALT [Catalytic activity/Vol] 8 U/L 5 - 33 U/L [place] Anion gap [Moles/Vol] 9 mmol/L 9 - 17 mmol/L [place] AST [Catalytic activity/Vol] 11 U/L <32 [place] Bilirubin Ql (U) 0.39 mg/dL 0.3 - 1.2 mg/dL [place] Bun/Cre Ratio NOT REPORTED [place] Calcium [Mass/Vol] 8.6 mg/dL 8.6 - 10. 4 mg/dL [place] Chloride [Moles/Vol] 106 mmol/L 98 - 10 7 mmol/L [place] CO2 [Moles/Vol] 25 mmol/L 20 - 31 mmol/L [place] Creatinine [Mass/Vol] 0.68 mg/dL 0.5 - 0.9 mg/dL [place] GFR >60 >60 mL/min [place] GFR Non- >60 >60 mL/min [place] GFR/1.73 sq M predicted among non-blacks MDRD (S/P/Bld) [Vol rate/Area] [place] Comment on above: Average GFR for 70 o r more years old: 75 mL/min/1.73sq m Chronic Kidney Disease: <60 mL/min/1.73sq m Kidney failure: <15 mL/min/1.73sq m eGFR calculated using average adult body mass. Additional eGFR calculator available at: http://www.[employer]rph.BeatTheBushes/multiple_crcl_2012.htm GFR/1.73 sq M predicted among non-blacks MDRD (S/P/Bld) [Vol rate/Area] NOT REPORTED [place] Glucose [Mass/Vol] 108 mg/dL High 70 - 99 mg/dL [place] Interpretation and review of laboratory results Abnormal [place] Potassium [Moles/Vol] 3.8 mmol/L 3.7 - 5.3 mmol/L [place] Protein [Mass/Vol] 6.4 g/dL 6.4 - 8.3 g/dL [place] Sodium [Moles/Vol] 140 mmol/L 135 - 144 mmol/L [place] Urea nitrogen [Mass/Vol] 14 mg/dL 8 - 23 mg/dL [place] LACTIC ACID, WHOLE BLOODon 1 Lactic Acid, Whole Blood 1.0 mmol/L 0.7 - 2.1 mmol/L [place] Lactic Acid,Whole Blon 08-02 Lactic Acid,Whole Bl 1.0 mmol/L Normal 0.7-2.1 [facility] Comment on above: Performed By: #### L ARAMIS HO, REJHUBERT #### [facility] [address] [place] [address] Provider Network Mgr: Juan Perera MD SPECIMEN REJECTIONon 019 Ordered Test CP [place] Reason for Rejection Unable to perform t esting: Specimen hemolyzed. [place] Specimen source Nom (Unsp spec) DEPOSIT CLERK [place] - NOT REPORTED [place] Specimen Rejectionon 019 Reason for rejection Unable to perform t esting: Specimen hemolyzed. [facility] Comment on above: Performed By: #### L ARAMIS HO, REJEC #### [facility] [address] [place] [address] Provider Network Mgr: Juan Perera MD Source of sample DEPOSIT CLERK [facility] Comment on above: Performed By: #### L ACWB, CDP, REJEC #### [facility] [address] [place], [place] [id number] Provider Network Mgr: Juan Perera MD Test ordered CP Normal [facility] Comment on above: Performed By: #### L ACWB, CDP, REJEC #### [facility] [address] [place], [place] [id number] Provider Network Mgr: Juan Perera MD ----- NOT REPORTED Normal [facility] Comment on above: Performed By: #### L ACWB, CDP, REJEC #### [facility] [address] [place], [place] [phone] Provider Network Mgr: Juan Perera MD XR ABDOMEN FOR NG/OG/NE TUBE PLACEMENTon 08-02-2019 XR ABDOMEN FOR NG/OG/NE TUBE PLACEMENT EXAMINATION: ONE SUPINE XRAY VIEW(S) OF THE ABDOMEN 08/02/2019 3:00 am COMPARISON: None. HISTORY: ORDERING SYSTEM PROVIDED HISTORY: Confirmation of course of NG/OG/NE tube and location of tip of tube TECHNOLOGIST PROVIDED HISTORY: Confirmation of course of NG/OG/NE tube and location of tip of tube Portable?->Yes Reason for Exam: NG placement FINDINGS: Enteric tube is in place with tip in the stomach and the proximal side hole in the distal esophagus. There is excreted contrast in the genitourinary system. Very little bowel gas is seen. IMPRESSION: The tip of the enteric tube is in the stomach though the proximal side hole is in the esophagus. The tube should be advanced 4 cm. Interpreted by: Eduardo Horner MD Signed by: Eduardo Horner MD 08/02/19 Final result Normal [facility] Robert, Mhpn Incoming R adiant Results From [employer]/Pacs - 08/02/2019 4:59 AM EDT EXAMINATION: ONE SUPINE XRAY VIEW(S) OF THE ABDOMEN 08/02/2019 3:00 am COMPARISON: None. HISTORY: ORDERING SYSTEM PROVIDED HISTORY: Confirmation of course of NG/OG/NE tube and location of tip of tube TECHNOLOGIST PROVIDED HISTORY: Confirmation of course of NG/OG/NE tube and location of tip of tube Portable?->Yes Reason for Exam: NG placement FINDINGS: Enteric tube is in place with tip in the stomach and the proximal side hole in the distal esophagus. There is excreted contrast in the genitourinary system. Very little bowel gas is seen. IMPRESSION: The tip of the enteric tube is in the stomach though the proximal side hole is in the esophagus. The tube should be advanced 4 cm. [place] EXAMINATION: ONE SUP INE XRAY VIEW(S) OF THE ABDOMEN 08/02/2019 3:00 am COMPARISON: None. HISTORY: ORDERING SYSTEM PROVIDED HISTORY: Confirmation of course of NG/OG/NE tube and location of tip of tube TECHNOLOGIST PROVIDED HISTORY: Confirmation of course of NG/OG/NE tube and location of tip of tube Portable?->Yes Reason for Exam: NG placement FINDINGS: Enteric tube is in place with tip in the stomach and the proximal side hole in the distal esophagus. There is excreted contrast in the genitourinary system. Very little bowel gas is seen. [place] The tip of the enter ic tube is in the stomach though the proximal side hole is in the esophagus. The tube should be advanced 4 cm. [facility] Mammogram Routine Screeni ng Bilat.on 07-02-2018 [place] Mammogram Routine Screening Bilat. MAMMOGRAM ROUTINE SCREENING BILATERALCLINICAL DATA: Routine screeningScreening digital mammogram study of both breasts was performed and comparedto the prior exam dated 06/21/2017. Scattered areas of fibroglandular densityare noted bilaterally. There is no evidence of interval dominant spiculatedmass, grouped microcalcifications or skin thickening which would besuggestive of malignancy. Scattered benign appearing calcifications are seenbilaterally, similar to prior study. Likely small intramammary lymph node onthe left as previously noted. Axillary lymph nodes are noted bilaterally.I CAD image loom checker was utilized for this study.IMPRESSION:1. NO SPECIFIC EVIDENCE OF MALIGNANCY SEEN IN EITHER BREAST.2. BIRAD 2. 1. A negative x-ray report should not delay biopsy if a dominant or clinically suspicious mass is present. 4 to 8% of cancers are not identified by x-ray 2. A negative report may reinforce clinical impression. 3. Adenosis and dense breasts may obscure an underlying neoplasm. 4. False positive reports average 6 to 10%.Chidi Preston MDJOSandi #: [id number]: 07/03/2018T: 07/03/2018 Final Dictated by: Chidi Preston MD SDictated DT/TM: 07/03/18 9:47Signed (Electronic Signature): Chidi Preston MD 07/03/18 1:53 pmTechnologist: CMAAssessment: 2-Benign findingRecommendation: Normal interval follow-up [facility] Provider Orderson 06-19-2018 Protein mass conc [id number] [facility] Coding Summaryon 09-03-2017 Coding Summary CODING DATE: 017 [facility] STATUS: Home PAYOR: Medicare ADMIT DX: REASON FOR VISIT DX: Z12.31 Encounter for screening mammogram for malignant neoplasm of breast FINAL DX: PRINCIPAL: Z12.31 Encounter for screening mammogram for malignant neoplasm of breast SECONDARY: PROCEDURES DOCTOR NAME DATE NOTE: The code number assigned matches the documented diagnosis and / or procedure in the patient's chart. However, the narrative phrase printed from the coding software may appear abbreviated, or result in slightly different terminology. Revised Coded By: Alma Rosa Waller Revised Date Saved: 06/24/2017 10:08 am [facility] Vital Signs Date Time Vital Sign Value Performing Clinician Facility 02-19-2024 19:31-0400 SaO2% (BldA) [Mass fraction] 95 % APURVA MARIELA Comment on above: Performed By: #### ELEC #### [facility] ([id number]) [address], [address] [place] [address] 02-17-2024 16:00-0400 Inhaled oxygen flow rate 3.5 L/min DO Gustavo Salas Work Phone: [facility] 02-17-2024 16:00-0400 SaO2% (BldA) [Mass fraction] 90 % DO Gustavo Salas Work Phone: [facility] 02-17-2024 14:02-0400 Body height 152.4 cm DO Gustavo Maritza Work Phone: [facility] 02-17-2024 12:32-0400 Diastolic blood pressure 53 mm[Hg] DO Gustavo Maritza Work Phone: [facility] 02-17-2024 12:32-0400 Heart rate 96 /min DO Gustavo Maritza Work Phone: [facility] 02-17-2024 12:32-0400 Respiratory rate 18 /min DO Gustavo Maritza Work Phone: [facility] 02-17-2024 12:32-0400 Systolic blood pressure 116 mm[Hg] DO Gustavo Maritza Work Phone: [facility] 02-17-2024 08:00-0400 Body temperature 97.8 [degF] DO Gustavo Maritza Work Phone: [facility] 02-17-2024 05:48-0400 Body weight 86.1 kg DO Gustavo Maritza Work Phone: [facility] 02-14-2024 16:43-0400 Body height 152.4 cm DO Gustavo Maritza Work Phone: [facility] 02-14-2024 16:43-0400 Body temperature 98.3 [degF] DO Gustavo Maritza Work Phone: [facility] 02-14-2024 16:43-0400 Body weight 84.9 kg DO Gustavo Maritza Work Phone: [facility] 02-14-2024 16:43-0400 Diastolic blood pressure 69 mm[Hg] DO Gustavo Maritza Work Phone: [facility] 02-14-2024 16:43-0400 Heart rate 105 /min DO Gustavo Maritza Work Phone: [facility] 02-14-2024 16:43-0400 Inhaled oxygen flow rate 4 L/min DO Gustavo Salas Work Phone: [facility] 02-14-2024 16:43-0400 Respiratory rate 20 /min DO Gustavo Salas Work Phone: [facility] 02-14-2024 16:43-0400 SaO2% (BldA) [Mass fraction] 92 % DO Gustavo Salas Work Phone: [facility] 02-14-2024 16:43-0400 Systolic blood pressure 119 mm[Hg] DO Gustavo Salas Work Phone: [facility] 02-10-2024 12:36-0400 Body height 152.4 cm Jenna Engle MD Work Phone: [facility] 02-10-2024 12:36-0400 Body mass index (BMI) [Ratio] 35.15 kg/m2 Jenna Engle MD Work Phone: [facility] 02-10-2024 12:36-0400 Body weight 81.65 kg Jenna Engle MD Work Phone: [facility] 02-10-2024 12:36-0400 Diastolic blood pressure 70 mm[Hg] Jenna Egnle MD Work Phone: [facility] 02-10-2024 12:36-0400 Heart rate 96 /min Jenna Engle MD Work Phone: [facility] 02-10-2024 12:36-0400 Systolic blood pressure 120 mm[Hg] Jenna Engle MD Work Phone: [facility] 01-30-2024 13:31-0400 Blood Pressure Location Renae Ponce [facility] 01-30-2024 13:31-0400 Body temperature 98.24 [degF] Renae Ponce [facility] 01-30-2024 13:31-0400 Diastolic blood pressure 82 mm[Hg] Renae Orzech [facility] 01-30-2024 13:31-0400 Heart rate 84 /min Renae Orzech [facility] 01-30-2024 13:31-0400 Systolic blood pressure 118 mm[Hg] Renae Orzech [facility] 01-27-2024 13:42-0400 Body height 162.[address] 01-27-2024 13:42-0400 Body mass index (BMI) [Ratio] 32.96 kg/m2 [address] 01-27-2024 13:42-0400 Body weight 87.[address] 01-27-2024 13:42-0400 Diastolic blood pressure 78 mm[Hg] [address] 01-27-2024 13:42-0400 Systolic blood pressure 126 mm[Hg] [address] 01-06-2024 11:39-0400 Diastolic blood pressure 72 mm[Hg] Jenna Engle MD Work Phone: [facility] 01-06-2024 11:39-0400 Systolic blood pressure 128 mm[Hg] Jnena Engle MD Work Phone: [facility] 01-06-2024 11:38-0400 Body height 162.6 cm Jenna Egnle MD Work Phone: [facility] 01-06-2024 11:38-0400 Body mass index (BMI) [Ratio] 32.96 kg/m2 Jenna Engle MD Work Phone: [facility] 01-06-2024 11:38-0400 Body weight 87.09 kg Jenna Engle MD Work Phone: [facility] 01-06-2024 11:38-0400 Heart rate 62 /min Jenna Engle MD Work Phone: [facility] 12-09-2023 11:08-0500 Body mass index (BMI) [Ratio] 34.18 kg/m2 Gustavovanesa Salas DO Work Phone: [facility] 12-09-2023 11:08-0500 Body temperature 97.5 [degF] Gustavo Salas DO Work Phone: [facility] 12-09-2023 11:08-0500 Body weight 79.38 kg Gustavo Salas DO Work Phone: [facility] 12-09-2023 11:08-0500 Diastolic blood pressure 72 mm[Hg] Gustavo Salas DO Work Phone: [facility] 12-09-2023 11:08-0500 Heart rate 106 /min Gustavo Salas DO Work Phone: [facility] 12-09-2023 11:08-0500 SaO2% (BldA) [Mass fraction] 96 % Gustavo Maritza DO Work Phone: [facility] 12-09-2023 11:08-0500 Systolic blood pressure 122 mm[Hg] Gustavo Salas DO Work Phone: [facility] 08-20-2023 16:32-0400 Heart rate 95 /min DO Gustavo Baezman Work Phone: [facility] 08-20-2023 16:32-0400 Respiratory rate 20 /min DO Gustavo Maritza Work Phone: [facility] 08-20-2023 12:00-0400 Body temperature 98.1 [degF] DO Gustavo Salas Work Phone: [facility] 08-20-2023 12:00-0400 Diastolic blood pressure 90 mm[Hg] DO Gustavo Salas Work Phone: [facility] 08-20-2023 12:00-0400 SaO2% (BldA) [Mass fraction] 95 % DO Gustavo Salas Work Phone: [facility] 08-20-2023 12:00-0400 Systolic blood pressure 125 mm[Hg] DO Gustavo Maritza Work Phone: [facility] 08-20-2023 04:47-0400 Body weight 82.7 kg DO Gustavo Salas Work Phone: [facility] 08-19-2023 13:57-0400 Body height 152.4 cm DO Gustavo Salas Work Phone: [facility] 08-17-2023 20:08-0400 Diastolic blood pressure 68 mm[Hg] DO Gustavo Salas Work Phone: [facility] 08-17-2023 20:08-0400 Heart rate 80 /min DO Gustavo Salas Work Phone: [facility] 08-17-2023 20:08-0400 Respiratory rate 20 /min DO Gustavo Salas Work Phone: [facility] 08-17-2023 20:08-0400 SaO2% (BldA) [Mass fraction] 95 % DO Gustavo Salas Work Phone: [facility] 08-17-2023 20:08-0400 Systolic blood pressure 132 mm[Hg] DO Gustavo Salas Work Phone: [facility] 08-17-2023 16:09-0400 Body temperature 97.4 [degF] DO Gustavo Salas Work Phone: [facility] 08-17-2023 16:07-0400 Body height 152.4 cm DO Gustavo Salas Work Phone: [facility] 08-17-2023 16:07-0400 Body weight 81 kg DO Gustavo Salas Work Phone: [facility] 07-14-2023 13:39-0400 Body temperature 97.8 [degF] DO Gustavo Salas Work Phone: [facility] 07-14-2023 13:39-0400 Diastolic blood pressure 79 mm[Hg] DO Gustavo Salas Work Phone: [facility] 07-14-2023 13:39-0400 Heart rate 80 /min DO Gustavo Salas Work Phone: [facility] 07-14-2023 13:39-0400 Respiratory rate 18 /min DO Gustavo Salas Work Phone: [facility] 07-14-2023 13:39-0400 SaO2% (BldA) [Mass fraction] 94 % DO Gustavo Salas Work Phone: [facility] 07-14-2023 13:39-0400 Systolic blood pressure 110 mm[Hg] DO Gustavo Salas Work Phone: [facility] 07-14-2023 06:00-0400 Body weight 90.1 kg DO Gustavo Salas Work Phone: [facility] 07-11-2023 15:28-0400 Body height 152.4 cm DO Gustavo Salas Work Phone: [facility] 07-10-2023 13:00-0400 Diastolic blood pressure 59 mm[Hg] DO Gustavo Salas Work Phone: [facility] 07-10-2023 13:00-0400 Heart rate 72 /min DO Gustavo Salas Work Phone: [facility] 07-10-2023 13:00-0400 Respiratory rate 18 /min DO Gustavo Salas Work Phone: [facility] 07-10-2023 13:00-0400 SaO2% (BldA) [Mass fraction] 96 % DO Gustavo Salas Work Phone: [facility] 07-10-2023 13:00-0400 Systolic blood pressure 107 mm[Hg] DO Gustaov Salas Work Phone: [facility] 06-17-2023 15:04-0400 Body height 152.4 cm DO Gustavo Salas Work Phone: [facility] 06-17-2023 15:04-0400 Body temperature 98.7 [degF] DO Gustavo Salas Work Phone: [facility] 06-17-2023 15:04-0400 Body weight 80.28 kg DO Gustavo Salas Work Phone: [facility] 06-17-2023 15:04-0400 Diastolic blood pressure 55 mm[Hg] DO Gustavo Salas Work Phone: [facility] 06-17-2023 15:04-0400 Heart rate 76 /min DO Gustavo Salas Work Phone: [facility] 06-17-2023 15:04-0400 Respiratory rate 19 /min DO Gustavo Salas Work Phone: [facility] 06-17-2023 15:04-0400 SaO2% (BldA) [Mass fraction] 96 % DO Gustavo Salas Work Phone: [facility] 06-17-2023 15:04-0400 Systolic blood pressure 110 mm[Hg] DO Gustavo Salas Work Phone: [facility] 12-31-2022 11:45-0500 Body temperature 97.3 [degF] DO Gustavo Salas Work Phone: [facility] 12-31-2022 11:45-0500 Diastolic blood pressure 72 mm[Hg] DO Gustavo Salas Work Phone: [facility] 12-31-2022 11:45-0500 Heart rate 78 /min DO Gustavo Salas Work Phone: [facility] 12-31-2022 11:45-0500 Inhaled oxygen flow rate 2 L/min DO Gustavo Salas Work Phone: [facility] 12-31-2022 11:45-0500 Respiratory rate 18 /min DO Gustavo Salas Work Phone: [facility] 12-31-2022 11:45-0500 SaO2% (BldA) [Mass fraction] 92 % DO Gustavo Salas Work Phone: [facility] 12-31-2022 11:45-0500 Systolic blood pressure 114 mm[Hg] DO Gustavo Salas Work Phone: [facility] 12-31-2022 06:00-0500 Body weight 83.5 kg DO Gustavo Salas Work Phone: [facility] 12-27-2022 10:00-0500 Body height 152.4 cm DO Gustavo Salas Work Phone: [facility] 12-26-2022 23:00-0500 Diastolic blood pressure 60 mm[Hg] DO Gustavo Salas Work Phone: [facility] 12-26-2022 23:00-0500 Heart rate 77 /min DO Gustavo Salas Work Phone: [facility] 12-26-2022 23:00-0500 Respiratory rate 18 /min DO Gustavo Salas Work Phone: [facility] 12-26-2022 23:00-0500 SaO2% (BldA) [Mass fraction] 94 % DO Gustavo Salas Work Phone: [facility] 12-26-2022 23:00-0500 Systolic blood pressure 130 mm[Hg] DO Gustavovanesa Salas Work Phone: [facility] 12-26-2022 18:59-0500 Body height 152.4 cm DO Gustavo Salas Work Phone: [facility] 12-26-2022 18:59-0500 Body temperature 98.8 [degF] DO Gustavo Maritza Work Phone: [facility] 12-26-2022 18:59-0500 Body weight 84.3 kg DO Gustavo Maritza Work Phone: [facility] 11-22-2022 11:25-0500 Body temperature 97.5 [degF] DO Gustavo Maritza Work Phone: [facility] 11-22-2022 11:25-0500 Diastolic blood pressure 68 mm[Hg] DO Gustavo Maritza Work Phone: [facility] 11-22-2022 11:25-0500 Heart rate 72 /min DO Gustavo Maritza Work Phone: [facility] 11-22-2022 11:25-0500 Respiratory rate 22 /min DO Gustaov Maritza Work Phone: [facility] 11-22-2022 11:25-0500 SaO2% (BldA) [Mass fraction] 93 % DO Gustavo Maritza Work Phone: [facility] 11-22-2022 11:25-0500 Systolic blood pressure 146 mm[Hg] DO Gustavo Maritza Work Phone: [facility] 11-22-2022 10:26-0500 Body height 152.4 cm DO Gustavo Maritza Work Phone: [facility] 11-22-2022 10:26-0500 Body weight 87.9 kg DO Gustavo Maritza Work Phone: [facility] 05-31-2022 15:12-0400 Diastolic blood pressure 75 mm[Hg] DO Gustavo Maritza Work Phone: [facility] 05-31-2022 15:12-0400 Heart rate 69 /min DO Gustavo Maritza Work Phone: [facility] 05-31-2022 15:12-0400 Respiratory rate 25 /min DO Gustavo Maritza Work Phone: [facility] 05-31-2022 15:12-0400 SaO2% (BldA) [Mass fraction] 98 % DO Gustavo Salas Work Phone: [facility] 05-31-2022 15:12-0400 Systolic blood pressure 156 mm[Hg] DO Gustavo Salas Work Phone: [facility] 05-31-2022 11:02-0400 Body height 154.94 cm DO Gustavo Salas Work Phone: [facility] 05-31-2022 11:02-0400 Body temperature 97.1 [degF] DO Gustavo Salas Work Phone: [facility] 05-31-2022 11:02-0400 Body weight 86.18 kg DO Gustavo Salas Work Phone: [facility] 08-04-2019 08:30-0400 Body Temperature 97.81 [degF] Hayden Watters [facility], [place] 08-04-2019 08:30-0400 BP Diastolic 69 mm[Hg] Hayden Watters [facility] [place] 08-04-2019 08:30-0400 BP Systolic 161 mm[Hg] Hayden Watters [facility] [place] 08-04-2019 08:30-0400 Pulse (Heart Rate) 78 /[facility] [place] [facility]-2019 08:30-0400 Pulse Oximetry 92 % Hayden Watters [facility], [place] 08-04-2019 08:30-0400 Respiratory Rate 18 /min [facility] [place] 08-02-2019 01:00-0400 BMI (Body Mass Index) 34.44 kg/m2 [facility] [place] 08-02-2019 01:00-0400 Body weight 82.67 kg Hayden Watters [facility] [place] 08-02-2019 01:00-0400 Height 154.9 cm Hayden Watters [place], [place] Encounters Encounter Date Encounter Type Care Provider Facility Start: 07-02-2024 End: 07-02-2024 ambulatory RUPERTO BARBOZA Not Available Start: 06-22-2024 End: 06-22-2024 ambulatory GUSTAVO SALAS Not Available Start: 05-22-2024 End: 05-22-2024 ambulatory GUSTAVO SALAS Not Available Start: 05-16-2024 End: 05-16-2024 ambulatory RUPERTO BARBOZA Not Available Start: 05-06-2024 End: 05-06-2024 ambulatory GUSTAVO SALAS Not Available Start: 05-06-2024 End: 05-06-2024 ambulatory GUSTAVO SALAS Not Available Start: 04-27-2024 End: 04-27-2024 ambulatory [facility] Start: 04-13-2024 End: 04-13-2024 ambulatory [facility] Start: 04-08-2024 End: 04-08-2024 ambulatory [facility] Start: 04-02-2024 End: 04-02-2024 [facility] Start: 03-30-2024 End: 03-30-2024 ambulatory [facility] Start: 03-18-2024 End: 03-18-2024 ambulatory [facility] Start: 03-17-2024 End: 03-17-2024 ambulatory [facility] Start: 03-11-2024 End: 03-11-2024 ambulatory [facility] Start: 03-05-2024 End: 03-05-2024 ambulatory [facility] Start: 03-04-2024 End: 03-04-2024 ambulatory GUSTAVO SALAS [facility] Start: 03-03-2024 End: 03-03-2024 ambulatory [facility] Start: 03-02-2024 End: 03-02-2024 [facility] Start: 02-27-2024 End: 02-27-2024 ambulatory TODD POSEY [facility] Start: 02-19-2024 End: 02-26-2024 Emergency department patient visit OVIDIO J [facility] Start: 02-19-2024 End: 02-25-2024 Evaluation and management of inpatient GUSTAVO SALAS Start: 02-19-2024 End: 02-26-2024 Emergency department patient visit OVIDIO J [facility] Start: 02-14-2024 Non-patient / Non-visit DO David ontiveros Maritza Work Phone: [facility] Work Phone: Start: 02-14-2024 End: 02-17-2024 Evaluation and management of inpatient DO Gustavo Salas Work Phone: [facility] [place] [facility] Work Phone: Start: 02-10-2024 End: 02-10-2024 ambulatory [facility] Start: 02-10-2024 End: 02-10-2024 Office outpatient visit 25 minutes Jenna Engle MD Work Phone: [facility] Comment on above: Shortness of breath; Coronary artery disease involving [place] coronary artery of [place] heart without angina pectoris; History of PTCA; Essential hypertension; Hyperlipidemia, mixed; Obstructive sleep apnea syndrome; BMI 35.0-35.9,adult; Current smoker; Chronic hypoxemic respiratory failure (Multi); Encounter to discuss test results Start: 02-05-2024 End: 02-05-2024 ambulatory GUSTAVO SALAS Not Available Start: 01-30-2024 End: 01-31-2024 ambulatory Renae X Kris Facility:[facility] Start: 01-30-2024 End: 01-31-2024 ambulatory Renae X Orjennie Facility: [place] Start: 01-30-2024 End: 01-30-2024 Lab Drop off Renae Ponce [facility] Start: 01-30-2024 End: 01-30-2024 Patient encounter procedure Renae Ponce [facility] Start: 01-27-2024 End: 01-28-2024 ambulatory [facility] Start: 01-27-2024 End: 01-27-2024 Subsequent hospital visit by physician Magnolia Garzon Echo/Vasc Room 2 [facility] Comment on above: Shortness of breath Start: 01-13-2024 ambulatory Renae Ponce Facility: [facility] Start: 01-10-2024 End: 01-10-2024 ambulatory GUSTAVO SALAS Not Available Start: 01-06-2024 End: 01-06-2024 Patient encounter procedure DO Gustavo Salas Work Phone: [facility] Work Phone: Start: 01-06-2024 End: 01-06-2024 ambulatory [facility] Start: 01-06-2024 End: 01-06-2024 Office consultation new/estab patient 80 min Jenna Engle MD Work Phone: [facility] Comment on above: Shortness of breath; Coronary artery disease involving [place] coronary artery of [place] heart without angina pectoris; Stage 3b chronic kidney disease (CMS/HCC); Microcytic anemia; History of PTCA; Essential hypertension; Hyperlipidemia, mixed; Obstructive sleep apnea syndrome; Chronic respiratory failure with hypoxia (CMS/HCC); Frequent UTI; BMI 32.0-32.9,adult; Cough with expectoration; Current smoker Start: 12-30-2023 End: 12-30-2023 ambulatory GUSTAVO SALAS Not Available Start: 12-18-2023 End: 12-18-2023 ambulatory GUSTAVO SALAS Not Available Start: 12-09-2023 End: 12-09-2023 ambulatory GUSTAVO SALAS Not Available Start: 12-09-2023 End: 12-09-2023 Office outpatient visit 40 minutes Gustavo Salas DO Work Phone: [facility] Comment on above: SOB (shortness of br eath) (Primary Dx); Wheezing; Urinary tract bacterial infections; Essential hypertension ([facility]/HCC); Mixed hyperlipidemia ([facility]/HCC); Stage 3a chronic kidney disease (HCC) ([facility]/HCC); Sepsis with acute renal failure without septic shock, due to unspecified organism, unspecified acute renal failure type ([facility]/HCC); Hospital discharge follow-up; Medication management; Female bladder prolapse; Pulmonary emphysema, unspecified emphysema type ([facility]/HCC) Start: 11-12-2023 Telephone encounter Nirmala baum [facility] Start: 10-31-2023 Chart abstracting Scanning Pro vider External [facility] Start: 10-30-2023 Telephone encounter Amrit carnes [facility] Comment on above: Neuro Appt Start: 10-21-2023 End: 10-24-2023 Evaluation and management of inpatient NANCY BERRY Start: 10-18-2023 End: 10-24-2023 Evaluation and management of inpatient PAUL CONTRERAS [facility] Start: 10-17-2023 End: 10-24-2023 Evaluation and management of inpatient BING ORDONEZQVI Start: 10-15-2023 End: 10-24-2023 [facility] Start: 10-14-2023 End: 10-24-2023 Evaluation and management of inpatient [facility] Start: 10-10-2023 End: 10-24-2023 Evaluation and management of inpatient HOUSTON E [facility] Start: 10-08-2023 End: 10-24-2023 Evaluation and management of inpatient NOE [facility] SEA Start: 10-06-2023 End: 10-24-2023 Evaluation and management of inpatient SUSANA VELAZQUEZ Start: 10-06-2023 End: 10-24-2023 Evaluation and management of inpatient FRANCINE YANG Start: 10-06-2023 End: 10-24-2023 Evaluation and management of inpatient SHEILA RODRIGUEZ [facility] Start: 10-05-2023 End: 10-24-2023 Evaluation and management of inpatient APURVA SIERRA Start: 10-05-2023 End: 10-23-2023 Evaluation and management of inpatient ALI TRINA Start: 08-17-2023 End: 08-20-2023 Evaluation and management of inpatient DO Gustavo Salas Work Phone: [facility] Work Phone: Start: 07-10-2023 End: 07-14-2023 Evaluation and management of inpatient DO Gustavo Salas Work Phone: [facility] Work Phone: Start: 06-17-2023 End: 06-17-2023 Emergency department patient visit DO Gustavo Salas Work Phone: [facility] Work Phone: Start: 04-01-2023 End: 04-26-2023 Patient encounter procedure Gustavo Salas DO Work Phone: [facility] Start: 01-22-2023 ambulatory NARCISO VALLE . Facility:[facility] Start: 12-27-[address] Charlie Gao II Facility:[id number] Start: 12-26-2022 End: 12-31-2022 Evaluation and management of inpatient DO Gustavo Salas Work Phone: [facility] Work Phone: Start: 11-22-2022 End: 11-22-2022 Emergency department patient visit DO Gustavo Salas Work Phone: [facility] Work Phone: Start: 05-31-2022 End: 05-31-2022 Emergency department patient visit DO Gustavo Salas Work Phone: [facility] Start: 05-03-2022 End: 05-03-2022 ambulatory Jorge A Renetta Other [employer] Other Start: 05-03-2022 Telephone encounter Jorge A Renetta [facility] Start: 04-24-2022 End: 04-24-2022 ambulatory Jorge A Renetta Other [employer] Other Start: 04-24-2022 Telephone encounter Jorge A Renetta [facility] Start: 03-12-[address] Charlie [facility] Facility: Start: 03-08-2022 End: 03-08-2022 ambulatory Jorge A Renetta Other [employer] Other Start: 03-08-2022 Telephone encounter Jorge A Renetta [facility] Psychiatry Start: 01-18-2022 End: 01-18-2022 ambulatory Tanya Cesar Other [facility] Other Start: 01-18-2022 Telephone encounter Tanya Cesar [facility] Start: 10-26-2021 End: 10-26-2021 ambulatory Jorge A Renetta Other [facility] Other Start: 10-26-2021 Telephone encounter Jorge A Renetta [facility] Start: 08-02-2019 End: 08-04-2019 Evaluation and management of inpatient CRYS BARBOZA [facility] Start: 08-01-2019 End: 08-04-2019 Evaluation and management of inpatient Hayden Bueno Work Phone: [facility] Start: 07-03-2018 End: 07-03-2018 Patient encounter Mely Camarillo Facility:[facility] Procedures Date Procedure Procedure Detail Performing Clinician Start: 03-17-2024 Follow-up visit Follow-up CARY BELCHER Start: 02-19-2024 Cyclic citrullinated peptide antibody APURVA SIERRA Comment on above: Result Comment: Interpretation-------- <3 Negative >=3 Positive Performed By: #### E LEC #### [facility] ([id number]) [address] [place] [address], [address] [place] [address] Start: 02-16-2024 Investigation of transfusion reaction DO Gustavo Salas Work Phone: Start: 02-15-2024 Lactoferrin measurement DO Gustavo Salas Work Phone: Start: 02-15-2024 Stool culture for bacteria DO Gustavo Salas Work Phone: Start: 02-14-2024 SARS-CoV-2, Influenz a & RSV (PCR) DO Gustavo Salas Work Phone: Start: 02-14-2024 Urine culture DO Jennifer Salas Work Phone: Start: 02-14-2024 Computed tomography of abdomen and pelvis with contrast DO Gustavo Salas Work Phone: Start: 02-14-2024 Duplex scan of lower limb veins DO Gustavo Salas Work Phone: Start: 02-14-2024 Plain chest X-ray DO Corwin Salas Work Phone: Start: 02-10-2024 FOLLOW UP IN CARDIOLOGY JENNA ENGLE Start: 01-27-2024 TRANSTHORACIC ECHO ( TTE) COMPLETE JENNA ENGLE Start: 01-06-2024 ECG 12-LEAD JENNA ESCOBAR Start: 01-06-2024 CBC panel - Blood by Automated count JENNA ENGLE Start: 01-06-2024 Natriuretic peptide B [Mass/volume] in Blood JENNA ENGLE Start: 01-06-2024 SEDIMENTATION RATE, AUTOMATED JENNA ENGLE Start: 01-06-2024 Comprehensive metabo lic 2000 panel - Serum or Plasma JENNA ENGLE Start: 01-06-2024 History of percutane ous transluminal coronary angioplasty History of PTCA Jenna Engle MD Work Phone: Start: 01-06-2024 Plain chest X-ray DO Corwin Salas Work Phone: Start: 01-06-2024 Ecg routine ecg w/le ast 12 lds w/i&r Jenna Engle MD Work Phone: Start: 10-23-2023 Cyclic citrullinated peptide antibody APURVA SIERRA Comment on above: Result Comment: Interpretation-------- <3 Negative >=3 Positive Performed By: #### [place], [address]-4, 2777-1 #### [facility] ([id number]) [address], [address] [place] [address] Start: 10-06-2023 Adult depression screening assessment Amrit Ortega Start: 08-18-2023 Duplex scan of lower limb veins DO Gustavo Salas Work Phone: Start: 08-17-2023 CT of abdomen and pe lvis without contrast DO Gustavo Salas Work Phone: Start: 08-17-2023 CT of chest without contrast DO Gustavo Salas Work Phone: Start: 08-17-2023 CT cervical spine wi thout contrast DO Gustavo Salas Work Phone: Start: 08-17-2023 CT of head without contrast DO Gustavo Salas Work Phone: Start: 08-17-2023 Plain x-ray of pelvi s and lower extremity DO Gustavo Salas Work Phone: Start: 08-17-2023 Plain chest X-ray DO Corwin Salas Work Phone: Start: 07-12-2023 Computed tomography of abdomen and pelvis with contrast DO Gustavo Salas Work Phone: Start: 07-10-2023 Aerobic microbial culture DO Gustavo Salas Work Phone: Start: 07-10-2023 Blood culture for bacteria, including anaerobic screen DO Gustavo Salas Work Phone: Start: 07-10-2023 Investigation of transfusion reaction DO Gustavo Salas Work Phone: Start: 07-10-2023 Urine culture DO Jennifer Salas Work Phone: Start: 07-10-2023 CT cervical spine wi thout contrast DO Gustavo Salas Work Phone: Start: 07-10-2023 CT of head without contrast DO Gustavo Salas Work Phone: Start: 07-10-2023 Plain chest X-ray DO Corwin Salas Work Phone: Start: 07-10-2023 Plain X-ray of left hip DO Gustavo Salas Work Phone: Start: 06-17-2023 Duplex scan of lower limb veins DO Gustavo Salas Work Phone: Start: 06-17-2023 Plain chest X-ray DO Corwin Salas Work Phone: Start: 06-14-2023 History of placement of stent for coronary artery disease S/P right coronary artery (RCA) stent placement Gustavo Salas DO Work Phone: Start: 12-31-2022 X-ray of left foot DO Herminio Salas Work Phone: Start: 12-27-2022 Urine culture DO Jennifer Salas Work Phone: Start: 12-27-2022 X-ray of left ankle DO Gustavo Salas Work Phone: Start: 12-27-2022 X-ray of left knee DO J rob Salas Work Phone: Start: 12-27-2022 Duplex scan of lower limb veins DO Gustavo Salas Work Phone: Start: 12-26-2022 CT of hip DO Gustavo Salas Work Phone: Start: 12-26-2022 Computed tomography of abdomen and pelvis with contrast DO Gustavo Salas Work Phone: Start: 12-26-2022 CT cervical spine wi thout contrast DO Gustavo Salas Work Phone: Start: 12-26-2022 CT of head without contrast DO Gustavo Salas Work Phone: Start: 12-26-2022 CT of thorax with contrast DO Gustavo Salas Work Phone: Start: 11-22-2022 Plain X-ray of left hip DO Gustavo Salas Work Phone: Start: 05-31-2022 Plain X-ray of right hip DO Gustavo Salas Work Phone: Start: 05-31-2022 X-ray of lumbar spin e, two or three views DO Gustavo Salas Work Phone: Start: 08-04-2019 DISCHARGE PATIENT CRYS BARBOZA Start: 08-04-2019 DIET LOW FIBER CRYS ACEVEDO Start: 08-04-2019 INITIATE OXYGEN THER APY PROTOCOL CRYS BARBOZA Start: 08-04-2019 Blood count complete auto&auto difrntl wbc CRYS BARBOZA Start: 08-04-2019 Blood count complete auto&auto difrntl wbc Hayden Bueno Work Phone: Start: 08-03-2019 MISCELLANEOUS NURSIN G CARE ORDER (SPECIFY) CRYS BARBOZA Start: 08-03-2019 Radiologic exam abdo men 1 view CRYS BARBOZA Start: 08-03-2019 INITIATE OXYGEN THER APY PROTOCOL CRYS BARBOZA Start: 08-03-2019 Radiologic exam abdo men 1 view Nona Blake Work Phone: Start: 08-03-2019 Blood count complete auto&auto difrntl wbc CRYS JABARI Start: 08-03-2019 Comprehensive metabo lic panel CRYS JABARI Start: 08-03-2019 Blood count complete auto&auto difrntl wbc Trued Al Keragani Work Phone: Start: 08-03-2019 Comprehensive metabo lic panel Hayden Parragani Work Phone: Start: 08-02-2019 TELEMETRY MONITORING ALEX BARBOZA Start: 08-02-2019 Comprehensive metabo lic panel CRYS BARBOZA Start: 08-02-2019 PREVIOUS SPECIMEN CRYS BARBOZA Start: 08-02-2019 NURSING COMMUNICATION L NATHAN BARBOZA Start: 08-02-2019 INITIATE OXYGEN THER APY PROTOCOL CRYS BARBOZA Start: 08-02-2019 Comprehensive metabo lic panel Verenice Chilel Work Phone: Start: 08-02-2019 Assay of lactate CRYS BARBOZA Start: 08-02-2019 Blood count complete auto&auto difrntl wbc CRYS BARBOZA Start: 08-02-2019 Drug tst prsmv instr mnt chem analyzers pr date CRYS BARBOZA Start: 08-02-2019 Assay of lactate Marisol Ojeda Work Phone: Start: 08-02-2019 Blood count complete auto&auto difrntl wbc Hayden Al Keragani Work Phone: Start: 08-02-2019 SPECIMEN REJECTION Mahm ud Al Furgani Work Phone: Start: 08-02-2019 Radiologic exam abdo men 1 view CRYS BARBOZA Start: 08-02-2019 TUBE INSERTION CRYS ACEVEDO Start: 08-02-2019 Radiologic exam abdo men 1 view Marisol Ojeda Work Phone: Start: 08-02-2019 IP CONSULT TO GENERA L SURGERY CRYS BARBOZA Start: 08-02-2019 FULL CODE CRYS Hill Start: 08-02-2019 INITIATE OXYGEN THER APY PROTOCOL CRYS BARBOZA Start: 08-01-2019 PATIENT STATUS (DIRECT) CRYS BARBOZA History of percutane ous transluminal coronary angioplasty History of PTCA Jenna Engle MD Work Phone: History of placement of stent for coronary artery disease S/P right coronary artery (RCA) stent placement Renae Ponce Plan of Treatment Date Care Activity Detail Author Start: 01-26-2025 Echocardiography Echocardiogram [facility] Start: 10-23-2024 Adult BMI Screening Adult BMI Screening [facility] Start: 10-07-2024 Echocardiography Echocardiogram [facility] Start: 10-06-2024 Depression Screening Depression Screening [facility] Start: 10-06-2024 Tobacco Screening Tobacco Screening [facility] Start: 04-27-2024 Screening for osteoporosis Bone Density Scan [facility] Start: 04-01-2024 Medicare Annual Wellness (AWV) Medicare Annual Wellness (AWV) [facility] Start: 02-19-2024 [facility] Start: 02-18-2024 [facility] Start: 02-17-2024 [facility] Start: 02-16-2024 Microbial culture of sputum [facility] Start: 02-14-2024 [facility] Start: 02-14-2024 Referral to Elevator Examiner And Adjuster [facility] Start: 02-14-2024 [facility] Start: 02-14-2024 Hospital admission [facility] Start: 02-14-2024 Bacteria identified in Blood by Culture [facility] Start: 02-14-2024 Bacteria identified in Urine by Culture [facility] Start: 02-14-2024 Blood culture for bacteria, including anaerobic screen Blood Culture [facility] Start: 02-14-2024 Duplex scan of lower limb veins US venous duplex LE RT [facility] Start: 02-14-2024 US Lower extremity vein - right [facility] Start: 02-10-2024 End: 02-10-2024 Patient encounter procedure 02/10/2024 12:30 PM EDT Office Visit [facility] [address] [facility] [address] [place] [address] Jenna Engle MD [address] [place] [address] [address] [place] [address] [facility] Start: 01-27-2024 End: 01-27-2024 Patient encounter procedure 01/27/2024 1:30 PM EDT [facility]ment [facility] [address] [facility] [address] [place] [phone] [facility] Start: 01-10-2024 End: 01-10-2024 Patient encounter procedure 01/10/2024 2:00 PM EDT Office Visit [facility] [address] [place] [phone] William Gallagher MD [address], [address] [place] [address] [facility] Start: 01-06-2024 End: 01-05-2025 CBC panel - Blood by Automated count CBC Lab Routine Shortness of breath Expected: 01/06/2024 (Approximate), Expires: 01/05/2025 [facility] Work Phone: Comment on above: Expected: 01/06/2024 (Approximate), Expi res: 01/05/2025 Start: 01-06-2024 End: 01-05-2025 Comprehensive metabolic 2000 panel - Serum or Plasma Comprehensive Metabolic Panel Lab Routine Shortness of breath Expected: 01/06/2024 (Approximate), Expires: 01/05/2025 [facility] Work Phone: Comment on above: Expected: 01/06/2024 (Approximate), Expi res: 01/05/2025 Start: 01-06-2024 End: 01-05-2025 Erythrocyte sedimentation rate Sedimentation Rate Lab Routine Shortness of breath Expected: 01/06/2024 (Approximate), Expires: 01/05/2025 [facility] Work Phone: Comment on above: Expected: 01/06/2024 (Approximate), Expi res: 01/05/2025 Start: 01-06-2024 End: 01-05-2025 Natriuretic peptide B [Mass/volume] in Blood B-Type Natriuretic Peptide Lab Routine Shortness of breath Expected: 01/06/2024 (Approximate), Expires: 01/05/2025 [facility] Work Phone: Comment on above: Expected: 01/06/2024 (Approximate), Expi res: 01/05/2025 Start: 01-06-2024 End: 01-05-2026 US Heart Transthoracic Transthoracic Echo Complete Echocardiography Routine Shortness of breath Expected: 01/06/2024 (Approximate), Expires: 01/05/2026 [facility] Service Area Work Phone: Comment on above: Expected: 01/06/2024 (Approximate), Expi res: 01/05/2026 Start: 01-06-2024 End: 01-05-2025 XR Chest 2 Views XR chest 2 views Imaging Routine Shortness of breath Expected: 01/06/2024 (Approximate), Expires: 01/05/2025 [facility] Work Phone: Comment on above: Expected: 01/06/2024 (Approximate), Expi res: 01/05/2025 Start: 12-30-2023 End: 12-30-2023 Patient encounter procedure 12/30/2023 11:15 AM EST Office Visit [facility] [address] [place] [id number] Gustavo Salas DO [address] [place] [address] [facility] Start: 12-16-2023 End: 12-16-2023 Patient encounter procedure 12/16/2023 11:30 AM EST Office Visit [facility] [address] [place] [address] Yovani Glover PA-C [address] [place] [address] [facility] Start: 12-09-2023 End: 12-09-2024 Bacteria identified in Urine by Culture Urine culture (clean catch) Microbiology Routine Urinary tract bacterial infections Expected: 12/09/2023 (Approximate), Expires: 12/09/2024 [facility] Comment on above: Expected: 12/09/2023 (Approximate), Expi res: 12/09/2024 Start: 12-09-2023 End: 12-09-2024 CBC W Auto Differential panel - Blood CBC and differential Lab Routine Essential hypertension ([facility]/HCC) Expected: 12/09/2023 (Approximate), Expires: 12/09/2024 [facility] Work Phone: Comment on above: Expected: 12/09/2023 (Approximate), Expi res: 12/09/2024 Start: 12-09-2023 End: 12-09-2024 Comprehensive metabolic 2000 panel - Serum or Plasma Comprehensive metabolic panel Lab Routine Essential hypertension (CMS/HCC) Expected: 12/09/2023 (Approximate), Expires: 12/09/2024 [facility] Comment on above: Expected: 12/09/2023 (Approximate), Expi res: 12/09/2024 Start: 12-09-2023 End: 12-09-2024 Magnesium [Mass/volume] in Serum or Plasma Magnesium Lab Routine Stage 3a chronic kidney disease (HCC) ([facility]/HCC) Expected: 12/09/2023 (Approximate), Expires: 12/09/2024 [facility] Comment on above: Expected: 12/09/2023 (Approximate), Expi res: 12/09/2024 Start: 11-11-2023 End: 11-11-2023 Patient encounter procedure 11/11/2023 9:15 AM EST Office Visit [facility] [address] [facility] [address] [place] [phone] Jose Martin Galicia MD [address] [place] [address], [address] [place], [place] [id number] [facility] Start: 11-05-2023 End: 11-05-2023 Patient encounter procedure 11/05/2023 12:30 PM EST Office Visit [facility] [address] [place] [address] Yovani Glover PA-C [address] [place] [address] [facility] Start: 08-20-2023 [facility] Start: 08-19-2023 Stool culture for bacteria Stool Culture [facility] Start: 08-18-2023 Blood chemistry [facility] Start: 08-18-2023 Duplex scan of lower limb veins US venous duplex LE BI [facility] Start: 08-18-2023 [facility] Start: 08-18-2023 Referral to [facility] Start: 08-17-2023 Hospital admission [facility] Start: 08-17-2023 Physical therapy procedure [facility] Start: 08-17-2023 Referral to occupational therapist [facility] Start: 08-17-2023 [facility] Start: 08-17-2023 Bacteria identified in Stool by Culture [facility] Start: 08-17-2023 [facility] Start: 08-17-2023 Bacteria identified in Blood by Culture [facility] Start: 08-17-2023 Blood culture for bacteria, including anaerobic screen Blood Culture [facility] Start: 07-14-2023 [facility] Start: 07-10-2023 Bacteria identified in Blood by Culture Blood Culture [facility] Start: 07-10-2023 Bacteria identified in Urine by Culture Urine Culture [facility] Start: 07-10-2023 Blood culture for bacteria, including anaerobic screen Blood Culture [facility] Start: 07-10-2023 Hospital admission [facility] Start: 02-26-2023 Hemoglobin A1c measurement Diabetes: Hemoglobin A1C [facility] Start: 12-31-2022 [facility] Start: 12-26-2022 Hospital admission [facility] Start: 12-26-2022 Referral to [facility] Start: 12-26-2022 [facility] Start: 12-26-2022 [facility] Start: 08-03-2020 Creatinine monitoring Creatinine monitoring [facility] [place] , [place] Start: 08-03-2020 Potassium monitoring Potassium monitoring [place] Start: 08-02-2019 Annual Wellness Visit (AWV) Annual Wellness Visit (AWV) [place] Start: 06-28-2019 Influenza vaccination Flu vaccine (#1) [place] Start: 2010 DEXA (modify frequency per FRAX score) DEXA (modify frequency per FRAX score) [place] Start: 2010 Fall Risk Screening Fall Risk Screening [facility] Start: 2010 Pneumococcal 65+ years Vaccine (1 of 2 - PCV13) Pneumococcal 65+ years Vaccine (1 of 2 - PCV13) [place] Start: 1995 Administration of varicella zoster vaccine Zoster (Shingles) Vaccine (1 of 2) [facility] Start: 1995 Breast cancer screen Breast cancer screen [place], [place] Start: 1995 Colon cancer screen colonoscopy Colon cancer screen colonoscopy [place] Start: 1995 Shingles Vaccine (1 of 2) Shingles Vaccine (1 of 2) [place] Start: 1995 Zoster Vaccines (1 of 2) Zoster Vaccines (1 of 2) [facility] Start: 1967 DTaP/Tdap/Td Vaccines (1 - Tdap) DTaP/Tdap/Td Vaccines (1 - Tdap) [facility] Start: 1964 DTaP,Tdap and Td Vaccines (1 - Tdap) DTaP,Tdap and Td Vaccines (1 - Tdap) [facility] Start: 1964 DTaP/Tdap/Td vaccine (1 - Tdap) DTaP/Tdap/Td vaccine (1 - Tdap) [place] Start: 1964 Urine screening for protein Diabetes: Urine Protein Screening [facility] Start: 1963 Adult BMI Follow Up Plan Adult BMI Follow Up Plan [facility] Start: 1963 Diabetes mellitus screening Diabetes Screening [facility] Start: 1963 Hepatitis C screening Hepatitis C Screening [facility] Start: 1955 Glaucoma screening Diabetes: Retinopathy Screening [facility] Start: 1955 Lipid screen Lipid screen [place], [place] Start: 1945 Creatinine measurement Creatinine Level [facility] Start: 1945 Hepatitis C screen Hepatitis C screen [place], [place] Start: 1945 Lipid panel Lipid Panel [facility] Start: 1945 Medicare Annual Wellness Visit [facility] Start: 1945 Potassium measurement Potassium Level [facility] Start: 1945 Tobacco Counseling Tobacco Counseling [facility] Anion gap measurement [facility] Basophils [#/volume] in Blood by Automated count [facility] Basophils/100 leukoc ytes in Blood by Automated count [facility] Eosinophils [#/volum e] in Blood [facility] Eosinophils/100 leukocytes in Blood by Automated count [facility] Erythrocyte distribu tion width [Ratio] by Automated count [facility] Erythrocytes [#/volu me] in Blood [facility] Hematocrit [Volume Fraction] of Blood [facility] Hemoglobin [Mass/vol ume] in Blood [facility] Initiate Oxygen Ther apy Protocol Initiate Oxygen Therapy Protocol Respiratory Care Routine Daily until discontinued starting 08/02/2019 [place] Comment on above: Daily until discontinued starting 2018 Leukocytes [#/volume ] corrected for nucleated erythrocytes in Blood by Automated coun [facility] Leukocytes [#/volume ] in Blood [facility] Lymphocytes [#/volum e] in Blood by Automated count [facility] Lymphocytes/100 leukocytes in Blood by Automated count [facility] MCH [Entitic mass] b y Automated count [facility] MCHC [Mass/volume] b y Automated count [facility] MCV [Entitic volume] by Automated count [facility] Monocytes [#/volume] in Blood by Automated count [facility] Monocytes/100 leukoc ytes in Blood by Automated count [facility] Neutrophils [#/volum e] in Blood by Automated count [facility] Neutrophils/100 leukocytes in Blood by Automated count [facility] Nucleated erythrocyt es [Presence] in Blood by Automated count [facility] Patient Education [facility] Work Phone: Patient referral [facility] Work Phone: Platelet mean volume [Entitic volume] in Blood by Automated count [facility] Platelets [#/volume] in Blood [facility] End: 08-02-2019 PREVIOUS SPECIMEN PREVIOUS SPECIMEN Lab Routine Once for 1 Occurrences starting 08/02/2019 until 08/02/2019 [facility] Comment on above: Once for 1 Occurrences starting 08/02/20 19 until 08/02/2019 PREVIOUS SPECIMEN PREVIOUS SPECI MEN Lab Routine 08/02/2019 9:43 AM EDT [facility] [place] Urinalysis complete panel - Urine Urinalysis with microscopic Lab Routine Urinary tract bacterial infections Stage 3a chronic kidney disease (HCC) (CMS/HCC) Ordered: 12/09/2023 [facility] Comment on above: Ordered: 12/09/2023 End: 01-27-2024 [facility] Work Phone: Comment on above: Once for 1 Occurrences starting 01/27/20 24 until 01/27/2024 Immunizations Immunization Date Immunization Notes Care Provider Napoleon rodriguez 09-02-2023 Influenza, High-dose , Quadrivalent [facility] 01-07-2023 SARS-COV-2 (COVID-19 ) vaccine, mRNA, spike protein, LNP, bivalent, preservative free, 30 mcg/0.3 mL dose, monserrat-sucrose formulation Gustavo Salas DO Work Phone: [facility] 12-31-2022 tuberculin skin test ; purified protein derivative solution, intradermal -[facility] 07-30-2022 influenza, high dose seasonal, preservative-free -[facility] 07-30-2022 Influenza, High-dose Seasonal, Quadrivalent, Preservative Free Gustavo Salas DO Work Phone: [facility] 06-08-2021 pneumococcal polysaccharide vaccine, 23 valent [facility] 03-09-2021 COVID-19 Sofia Guerrero Other [facility] Other 02-10-2021 COVID-19 Sofia Martínez Cesar Other [employer] Other 11-07-2020 influenza, high dose seasonal, preservative-free [facility] 11-07-2020 influenza, seasonal, injectable Jenna Engle MD Work Phone: [facility] Work Phone: 08-04-2020 Seasonal trivalent influenza vaccine, adjuvanted, preservative free [facility] 07-14-2018 influenza, high dose seasonal, preservative-free Jorge A Renetta Other [employer] Other 07-14-2018 influenza virus vaccine, unspecified formulation DO Gustavo Salas Work Phone: [facility] 07-13-2018 Influenza, High-dose , Quadrivalent [employer] 08-02-2017 influenza, high dose seasonal, preservative-free Jorge A Renetta Other [employer] Other 08-02-2017 influenza virus vaccine, unspecified formulation DO Gustavo Salas Work Phone: [facility] 08-01-2017 Influenza, High-dose , Quadrivalent [facility] 07-26-2016 pneumococcal conjuga te vaccine, 13 valent Jorge A Renetta Other [facility] Other 07-26-2016 influenza, high dose seasonal, preservative-free Jorge A Renetta Other [employer] Other 07-26-2016 influenza virus vaccine, unspecified formulation DO Gustavo Salas Work Phone: [facility] 07-25-2016 Influenza, High-dose , Quadrivalent [facility] 08-23-2015 influenza, high dose seasonal, preservative-free Jorge A Renetta Other [facility] Other 08-23-2015 influenza virus vaccine, unspecified formulation DO Gustavo Salas Work Phone: [facility] 08-22-2015 Influenza, High-dose , Quadrivalent [facility] 10-28-2014 pneumococcal polysaccharide vaccine, 23 valent Jenna Engle MD Work Phone: [facility] Work Phone: 07-26-2014 influenza, seasonal, injectable [employer] 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 [employer]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 [facility] 07-08-2014 influenza, injectabl e, quadrivalent, contains preservative Jorge A Renetta Other [facility] 09-28-2013 influenza, injectabl e, quadrivalent, contains preservative Jorge A Renetta Other [facility] 12-04-2010 pneumococcal conjuga te vaccine, 7 valent Jorge A Renetta Other [employer] Other 12-04-2010 pneumococcal Conjuga te, unspecified formulation DO Gustavo Salas Work Phone: [facility] Payers Date Payer Category Payer Medicaid [id number] 2024 Unknown [id number] 2023 Private Health Insurance [facility] DUAL COMPLETE [facility] DUAL COMPLETE [id number] 2023-Present Kaushik Yeager [address] [place] [address] [id number] .[id number] 2023 Self-pay [id number] 2022 Medicare [id number] 1.13.424.2 .[id number] 2021 Medicaid 1.2.840.181120. 1.13.424.2 .7.3.603436.315 2018 Medicare [id number] 2017 Private Health Insurance [id number] 2014 Medicaid [id number] 2014 Medicaid MEDICAID [facility] DEPT OF JOB xxxxxxxxxxxx 2014-Present [phone] [address] [place] [address] xxxxxxxxxxxx [id number] .[id number] 2014 Medicare [id number] 2014 Medicare MEDICARE MEDICAR E PART A AND B xxxxxxxxxxx 2014-Present [phone] [address] [address] [place] [address] xxxxxxxxxxx 1.2.840.540298.1.13.239.2 .7.3.181988.315 1945 Unknown [id number] 2.16.840.1.145277.3.579.2 .175 1945 Unknown [id number] 2.16.840.1.469144.3.579.2 .356 1945 Unknown [id number] 2.16.840.1.447772.3.579.2 .356 1945 Unknown [id number] 2.16.840.1.669539.3.579.2 .593 1945 Unknown [id number] 2.16.840.1.928602.3.579.2 .1246 1945 Unknown [id number] 2.16.840.1.876808.3.579.2 .1244 1945 Unknown [id number] 2.16.840.1.758030.3.579.2 .1244 1945 Unknown [id number] 2.16.840.1.920538.3.579.2 .727 1945 Unknown [id number] 2.16.840.1.378938.3.579.2 .727 1945 Unknown [id number] 2.16.840.1.246013.3.579.2 .1286 1945 Unknown [id number] 2.16.840.1.374503.3.579.2 .1286 1945 Unknown [id number] 2.16.840.1.139438.3.579.2 .1285 1945 Unknown [id number] 2.16.840.1.248640.3.579.2 .1285 1945 Unknown [id number] 2.16.840.1.394619.3.579.2 .1285 1945 Unknown [id number] 2.16.840.1.605795.3.579.2 .1285 1945 Unknown [id number] 2.16.840.1.558270.3.579.2 .1285 1945 Unknown [id number] 2.16.840.1.623508.3.579.2 .1285 1945 Unknown [id number] 2.16.840.1.952616.3.579.2 .1286 1945 Unknown [id number] 2.16.840.1.626876.3.579.2 .1286 1945 Unknown [id number] 2.16.840.1.923499.3.579.2 .1285 1945 Unknown [id number] 2.16.840.1.345846.3.579.2 .1285 1945 Unknown [id number] 2.16.840.1.983109.3.579.2 .1285 1945 Unknown [id number] 2.16.840.1.813855.3.579.2 .1286 1945 Unknown [id number] 2.16.840.1.292761.3.579.2 .1286 1945 Unknown [id number] 2.16.840.1.969487.3.579.2 .1286 1945 Unknown [id number] 2.16.840.1.800212.3.579.2 .1286 1945 Unknown [id number] 2.16.840.1.250958.3.579.2 .128 1945 Unknown [id number] 2.16.840.1.237810.3.579.2 .6 1945 Unknown [id number] 2.16.840.1.660120.3.579.2 .1285 1945 Unknown [id number] 2.16.840.1.957352.3.579.2 .1285 1945 Unknown [id number] 2.16.840.1.287592.3.579.2 .6 1945 Unknown [id number] 2.16.840.1.584647.3.579.2 .128 1945 Unknown [id number] 2.16.840.1.986546.3.579.2 .1286 1945 Unknown [id number] 2.16.840.1.155485.3.579.2 .1285 1945 Unknown [id number] 2.16.840.1.175328.3.579.2 .1285 1945 Unknown [id number] 2.16.840.1.033621.3.579.2 .1285 1945 Unknown [id number] 2.16.840.1.888970.3.579.2 .1285 1945 Unknown [id number] 2.16.840.1.584859.3.579.2 .1286 1945 Unknown [id number] 2.16.840.1.828614.3.579.2 .1285 1945 Unknown [id number] 2.16.840.1.616986.3.579.2 .128 1945 Unknown [id number] 2.16.840.1.807535.3.579.2 .1285 1945 Unknown [id number] 2.16.840.1.458501.3.579.2 .1285 1945 Unknown [id number] 2.16.840.1.249406.3.579.2 .1285 1945 Unknown [id number] 2.16.840.1.886696.3.579.2 .1285 1945 Unknown [id number] 2.16.840.1.888237.3.579.2 .1285 1945 Unknown [id number] 2.16.840.1.271306.3.579.2 .1285 1945 Unknown [id number] 2.16.840.1.411824.3.579.2 .1285 1945 Unknown [id number] 2.16.840.1.612874.3.579.2 .1258 1945 Unknown [id number] 2.16.840.1.630234.3.579.2 .1258 1945 Unknown [id number] 2.16.840.1.064436.3.579.2 .1258 1945 Unknown [id number] 2.16.840.1.735862.3.579.2 .1258 1945 Unknown [id number] 2.16.840.1.164003.3.579.2 .1258 1945 Unknown [id number] 2.16.840.1.834409.3.579.2 .1258 1945 Unknown [id number] 2.16.840.1.406874.3.579.2 .1259 1945 Unknown [id number] 2.16.840.1.967093.3.579.2 .1259 1945 Unknown [id number] 2.16.840.1.879730.3.579.2 .1259 1945 Unknown [id number] 2.16.840.1.615306.3.579.2 .1259 1945 Unknown [id number] 2.16.840.1.032630.3.579.2 .1259 Medicare [id number] 2.16.840.1.452844.[address] [facility] 2 [id number] Unknown [id number] 2.16.840.1.221164.3.579.2 .531 Unknown [id number] 2.16.840.1.967851.3.579.2 .531 Unknown [id number] 2.16.840.1.698031.3.579.2 .531 Unknown [id number] 2.16.840.1.490590.3.579.2 .531 Unknown [id number] 2.16840.1.421663.3.579.2 .531 Social History Date Type Detail Facility Start: 06-23-2012 End: 02-14-2024 Tobacco smoking status NHIS Former smoker [facility] Start: 12-26-2022 End: 12-08-2011 History of tobacco use Current smoker [place] End: 12-08-2011 History of tobacco use Cigarette Smoker [place] Start: 06-23-2012 End: 02-10-2024 Alcohol intake No [place] Start: 06-23-2012 Alcohol Comment stopped 20 years [place], [place] Start: 1945 Sex Assigned At Not on file M [place], [place] Start: 1945 Sex Assigned At Female F [facility] Start: 10-06-2023 End: 12-04-2023 Tobacco smoking status NHIS Smokes tobacco daily [facility] Start: 10-06-2023 End: 02-10-2024 Cigarettes smoked current (pack per day) - Reported 0.[address] [facility] Start: 10-06-2023 End: 02-10-2024 Tobacco use and exposure Smokeless tobacco non-user [facility] Start: 10-18-2023 End: 02-10-2024 Alcohol intake Lifetime non-drinker (finding) [facility] How often to you hav e a drink containing alcohol? Never [facility] How many standard drinks containing alcohol do you have on a typical day? Patient does not drink [facility] History of tobacco use Passive smoker [facility] Start: 08-23-2023 Tobacco Comment [facility] [noted 02/25 05/19] : Former smoker ; quit date 01/26/2022 [facility] Start: 03-23-2023 Alcohol Comment caffeine 2-3 c ups/day; pepsi 2 cans/day [facility] Start: 12-27-2023 End: 02-10-2024 Exposure to SARS-CoV-2 (event) Not sure [facility] Start: 01-30-2024 Tobacco smoking status Light t obacco smoker (finding) [facility] Start: 02-10-2024 Tobacco smoking stat us NHIS Occasional tobacco smoker [facility] Work Phone: Medical Equipment Procedure Code Equipment Code Equipment Origin al Text Equipment Identifier Dates CL CLOSURE DEVIC E EXOSEAL 6F FDA Start: 04-29-2019 CL STENT KELLY 2.75 X 23 FDA Start: 04-29-2019 Orthopaedic bone screw, non-bioabsorbable, non-sterile [id number] FDA Start: 09-02-2020 Femur nail, sterile ()[id number] FDA Start: 09-02-2020 Spiral blade ()[id number] FDA Start: 09-02-2020 CL CLOSURE DEVIC E EXOSEAL 6F FDA Start: 04-29-2019 CL STENT KELLY 2.75 X 23 FDA Start: 04-29-2019 CL CLOSURE DEVIC E EXOSEAL 6F FDA Start: 04-29-2019 CL STENT KELLY 2.75 X 23 FDA Start: 04-29-2019 CL CLOSURE DEVIC E EXOSEAL 6F FDA Start: 04-29-2019 CL STENT KELLY 2.75 X 23 FDA Start: 04-29-2019 CL CLOSURE DEVIC E EXOSEAL 6F FDA Start: 04-29-2019 CL STENT KELLY 2.75 X 23 FDA Start: 04-29-2019 CL CLOSURE DEVIC E EXOSEAL 6F FDA Start: 04-29-2019 CL STENT KELLY 2.75 X 23 FDA Start: 04-29-2019 CL CLOSURE DEVIC E EXOSEAL 6F FDA Start: 04-29-2019 CL STENT KELLY 2.75 X 23 FDA Start: 04-29-2019 CL CLOSURE DEVIC E EXOSEAL 6F FDA Start: 04-29-2019 CL STENT KELLY 2.75 X 23 FDA Start: 04-29-2019 CL CLOSURE DEVIC E EXOSEAL 6F FDA Start: 04-29-2019 CL STENT KELLY 2.75 X 23 FDA Start: 04-29-2019 CL CLOSURE DEVIC E EXOSEAL 6F FDA Start: 04-29-2019 CL STENT KELLY 2.75 X 23 FDA Start: 04-29-2019 Goals Date Patient Goal Desired Activity /State Personal health goal Comment on above: Formatting of this n ote might be different from the original. 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 Work Phone: 02-14-2024 Functional status Patient Not at Baseline [facility] Work Phone: 01-30-2024 Functional Status N/A [facility] 08-20-2023 Functional status Patient at Baseline [facility] Work Phone: 07-14-2023 Functional status Patient at Baseline [facility] Work Phone: 12-31-2022 Functional status Patient Not at Baseline [facility] Work Phone: Mental Status Date Assessment Result Facility 02-17-2024 Cognitive function Cognitive Sta tus Patient at Baseline [facility] Work Phone: 02-14-2024 Cognitive function Cognitive Sta tus Patient at Baseline [facility] Work Phone: 08-20-2023 Cognitive function Cognitive Sta tus Patient at Baseline [facility] Work Phone: 07-14-2023 Cognitive function Cognitive Sta tus Patient at Baseline [facility] Work Phone: 12-31-2022 Cognitive function Cognitive Sta tus Patient at Baseline [facility] Work Phone: Clinical Notes 01-18-2022 to 02-19-2024 Note Date & Type Note Facility 02-19-[address] CHEST W CONT PROCEDURE: CT CHEST WITH CONTRAST CLINICAL INDICATION: . Soft tissue mass, chest, US/xray nondiagnostic; Respiratory illness, nondiagnostic xray. COMPARISON: 10/06/2023 TECHNIQUE: CT was performed of the chest using 100 mL Omnipaque 300 intravenous contrast, without complication. Coronal & sagittal MPR images were generated and reviewed. FINDINGS: No significant findings at the thoracic inlet, body wall. Nonacute appearing superior endplate depression of T10 and C7. No aggressive osseous lesions. Nonacute proximal right humeral fracture. Moderate calcified coronary arterial disease. Nonenlarged heart. No aortic intramural hematoma. Mild fusiform dilatation ascending aorta. Unremarkable pulmonary arteries. Confluent right basilar opacity no pneumothorax. Interstitial pulmonary edema. IMPRESSION: 1. Confluent right basilar opacity, most consistent with atelectasis. Endobronchial obstructing lesion is possible, correlate clinically. Bronchoscopy may be informative. Consider follow-up CT chest in 6-8 weeks to establish resolution. 2. Interstitial pulmonary edema. All CT scans at this facility use dose modulation, iterative reconstruction, and/or weight based dosing when appropriate to reduce radiation dose to as low as reasonably achievable. Finalized by Dima Colón MD on 02/19/2024 4:52 PM 02-16-2024 Progress note Note Date/Time February 16, 2024 12:07pm [facility] [address] [place] [address] Hospitalist Progress Note Signed Patient: Gera Perdue MR#: [id number] : 1945 Acct:[id number] Age/Sex: 78 / F Adm Date: 4 Loc: Room: [address] [place] [address] Type: ADM IN Attending Dr: Lucho Grullon MD Copies to: ~ Date of Service: 02/16/2024 Subjective Subjective Narrative: 78F with PMH of HTN, HLD, COPD, CRF (on 3L Home O2), CAD (s/p stenting), GERD, Depression, Glaucoma, h/o Diverticulitis, Nephrolithiasis, MO(BMI >40) who presented with N/V/D and admitted for the evaluation and treatment of suspected PNA and dehydration LAssessment And Plan Acute Gastroenteritis Volume depletion no more N/V, she still have D. she is been tolerating soft diet no abdominal pain The patient presents with nausea, vomiting and diarrhea. She is afebrile in the hospital. She is hemodynamically stable, there is mild leukocytosis but no left shift CT abd shows dependent gas within the bladder lumen. There is wall thickening with accompanying fat stranding in the transverse colon, descending colon, and sigmoid colon It is likely viral infection however i can?t rule out bacterial Stool Lactoferrin Positive C. Diff negative Stool Cx negative so far sart Imodium IVF and supportive treatment Rule out Bacterial pneumonia she is still have cough but better, no SOB or chest pain , afebrile, no leukocytosis, hypoxia at baseline She p/w productive cough CXR ED shows Interstitial prominence is noted bilaterally with mild hazy perihilar airspace opacity on the right. COVID-19 / Flu A/B / RSV is negative bacterial/atypical infection cannot be rule out, therefore he was started on Empiric Abx Blood Cx no growth so far Respiratory Cx she has not given any sample so far O2 Supplement Empiric Abx: Ceftriaxone and Azithromycin IV Breathing Tx if needed Mucinex asymptomatic bacteruria urine Cx is positive Her Sx is likely due to above rather to be due to UTI. Leg swelling Rule out DVT She has LE swelling R>L with there is tenderness in the right lower extremity ultrasound report was negative for DVT in the RLE INTERVAL HPI:?As Above, Pt resting in bed. feeling little better. Denies any chest pain, SOB Chronic diseases:?Unless mentioned Above, Essential home medications have been continued.? DVT Px:?Addressed Disposition:?home in 1-2 days Plan of care Discussed with:?the medical team, the patient Exam Physical Exam Vital Signs: Temp Pulse Resp BP Pulse Ox O2 Del Method O2 Flow Rate 36.6 C 89 20 123/72 95 Nasal Cannula 3.5 02/16/24 11:52 02/16/24 11:52 02/16/24 08:00 02/16/24 11:52 02/16/24 11:52 02/16/24 11:52 02/16/24 11:52 Narrative: GEN: Pleasant, Cooperative, Not in acute distress. LUNGS: minimal wheezing in the left no crackles. normal respiratory effort. CV: S1S2 nl, ? M/R/G ABD: Soft, ND, NT, + BS EXT: edema in LE bilaterally more in right leg, no calf muscle tenderness. NEURO: ? FND PSYCH: nl affect Objective Lab Results 02/16/24 06:32 02/16/24 06:32 Microbiology Results Microbiology 02/15/24 02:10 Stool Stool Culture - Preliminary 02/14/24 11:50 Urine - Straight Cath Urine Culture - Final Klebsiella pneumoniae 02/14/24 12:51 Blood - Left Antecubital Blood Culture - Preliminary No Growth 1 Day 02/14/24 12:46 Blood - Right Hand Blood Culture - Preliminary No Growth 1 Day Meds Allergies and Active Meds Allergies acetaminophen [Percocet] Allergy (Unknown, Verified 02/14/24 13:17) vomiting oxycodone [Percocet] Allergy (Unknown, Verified 02/14/24 13:17) vomiting aspirin Adverse Reaction (Verified 02/14/24 13:17) Vomiting Active Meds: Active Medications Generic Name Dose Route Start Last Admin Trade Name Freq PRN Reason Stop Dose Admin Acetaminophen 650 mg 02/14/24 17:46 02/15/24 15:39 Acetaminophen 325 Mg Tablet PO 02/13/25 17:45 650 mg Q6H PRN Administration Pain 1-5 or fever Albuterol 2.5 mg 02/14/24 17:46 Albuterol Neb 2.5 Mg/3 Ml Vial.Neb INHALATION 02/13/25 17:45 Q3H PRN Shortness Of Breath Bupropion HCl 300 mg 02/16/24 09:00 02/16/24 10:22 Bupropion 300 Mg Tab.Er.24h PO 02/15/25 08:59 300 mg QAM JERILYN Administration Clopidogrel Bisulfate 75 mg 02/15/24 15:10 02/16/24 10:23 Clopidogrel Bisulfate 75 Mg Tablet PO 02/14/25 15:09 75 mg DAILY JERILYN Administration Guaifenesin 600 mg 02/14/24 21:00 02/16/24 10:23 Guaifenesin 600 Mg Tab.Er.12h PO 02/13/25 20:59 600 mg BID JERILYN Administration Heparin Sodium (Porcine) 5,000 unit 02/14/24 09:00 02/16/24 10:23 Heparin 5,000 Unit/Ml Vial SUBCUT 02/13/25 08:59 5,000 unit BID JERILYN Administration Azithromycin 500 mg in 250 mls @ 250 mls/hr 02/15/24 12:00 02/15/24 12:15 Zithromax IV 250 mls/hr Q24H JERILYN Administration Ceftriaxone Sodium 1 gm in 50 mls @ 100 mls/hr 02/15/24 12:00 02/15/24 13:35 Rocephin IV 100 mls/hr Q24H JERILYN Administration Lactated Ringer's 1,000 mls @ 125 mls/hr 02/14/24 18:00 02/16/24 06:27 Lactated Ringers IV 02/13/25 17:59 125 mls/hr .Q8H JERILYN Administration Magnesium Sulfate 2 gm in 50 mls @ 25 mls/hr 02/14/24 17:46 02/15/24 10:13 Magnesium Sulf 2gm-*Swfi* IV 02/13/25 17:45 25 mls/hr DAILY PRN Administration Hypomagnesemia <1.7 Mg/dl Melatonin 5 mg 02/15/24 15:06 Melatonin 5 Mg Tablet PO 02/14/25 15:05 HS PRN sleep Nystatin 1 applic 02/15/24 22:00 02/16/24 10:47 Nystatin 100,000 Unit/Gram Powder 15 Gm Bottle TOPICAL 02/14/25 21:59 1 applic BID JERILYN Administration Ondansetron HCl 4 mg 02/14/24 17:46 Ondansetron 4 Mg/2 Ml Vial IV-PUSH 02/13/25 17:45 Q6H PRN Nausea And Vomiting Pantoprazole Sodium 40 mg 02/16/24 09:00 02/16/24 10:23 Pantoprazole 40 Mg Tablet.Dr PO 02/15/25 08:59 40 mg DAILY JERILYN Administration Paroxetine HCl 40 mg 02/16/24 09:00 02/16/24 10:47 Paroxetine 20 Mg Tablet PO 02/15/25 08:59 40 mg QAM JERILYN Administration Potassium Chloride 40 meq 02/14/24 17:46 Potassium Chloride Er 20 Meq Tab.Er.Prt PO 02/13/25 17:45 DAILY PRN Hypokalemia Pregabalin 75 mg 02/15/24 21:00 02/16/24 10:23 Pregabalin 75 Mg Capsule PO 08/13/24 20:59 75 mg BID JERILYN Administration Sodium Chloride 0 ml 02/14/24 11:38 02/14/24 18:48 Sodium Chloride 0.9 % 10 Ml Syringe IV-PUSH 02/13/25 11:37 10 ml PRN PRN Administration Flush A&P - Hospitalist Assessment/Plan (1) Pneumonia: (2) CAD (coronary artery disease): (3) GERD (gastroesophageal reflux disease): (4) COPD (chronic obstructive pulmonary disease): Plan Documented By: Lucho Grullon MD 02/16/24 1206 Signed By: <Electronically signed by Lucho Grullon MD> 02/16/241911 [facility] Work Phone: 1(346) 422-717304-21-2024 Progress note Author Lucho Grullon [facility] February 16, 2024 12:09am Note Date/Time February 15, 2024 3:0 4pm [facility] [address] [place] [address] Hospitalist Progress Note Signed Patient: Gera Perdue MR#: [id number] : 1945 Acct:[id number] Age/Sex: 78 / F Adm Date: 4 Loc: Room: [address] [place] [address] Type: ADM IN Attending Dr: Lucho Grullon MD Copies to: ~ Date of Service: 02/15/2024 Subjective Subjective Narrative: 78F with PMH of HTN, HLD, COPD, CRF (on 3L Home O2), CAD (s/p stenting), GERD, Depression, Glaucoma, h/o Diverticulitis, Nephrolithiasis, MO(BMI >40) who presented with N/V/D and admitted for the evaluation and treatment of suspected PNA and dehydration LAssessment And Plan Acute Gastroenteritis Volume depletion no more N/V, she still have D. no abdominal pain The patient presents with nausea, vomiting and diarrhea. She is afebrile in the hospital. She is hemodynamically stable, there is mild leukocytosis but no left shift CT abd shows dependent gas within the bladder lumen. There is wall thickening with accompanying fat stranding in the transverse colon, descending colon, and sigmoid colon It is likely viral infection however i can?t rule out bacterial Stool Lactoferrin Positive C. Diff negative Stool Cx pending advance diet will use Imodium if stool culture came back negative IVF and supportive treatment Rule out Bacterial pneumonia cough is better, no SOB or chest pain , afebrile, no leukocytosis, hypoxia at baseline She p/w productive cough CXR ED shows Interstitial prominence is noted bilaterally with mild hazy perihilar airspace opacity on the right. COVID-19 / Flu A/B / RSV is negative bacterial/atypical infection cannot be rule out, therefore he was started on Empiric Abx Blood Cx no growth so far Respiratory Cx she has not given any sample so far O2 Supplement Empiric Abx: Ceftriaxone and Azithromycin IV Breathing Tx if needed Mucinex Pyuria Her Sx is likely due to above rather to be due to UTI . urine Cx is positive which likely asymptomatic bacteruria Leg swelling Rule out DVT She has LE swelling R>L with there is tenderness in the right lower extremity ultrasound preliminary report was negative for dvt INTERVAL HPI:?As Above, Pt resting in bed. feeling better. Denies any chest pain, SOB Chronic diseases:?Unless mentioned Above, Essential home medications have been continued.? DVT Px:?Addressed Disposition:?To be determined Plan of care Discussed with:?the medical team, the patient Exam Physical Exam Vital Signs: Temp Pulse Resp BP Pulse Ox O2 Del Method O2 Flow Rate 36.8 C 63 18 120/75 94 L Nasal Cannula 3 02/15/24 12:00 02/15/24 12:00 02/15/24 12:00 02/15/24 12:00 02/15/24 12:00 02/15/24 12:02/15/24 12:00 Narrative: GEN: Pleasant, Cooperative, Not in acute distress. LUNGS: CTA. normal respiratory effort. CV: S1S2 nl, ? M/R/G ABD: Soft, ND, mild nonlocalized tenderness move in the umbical area , + BS, ? rebound/guarding, ?CVA tenderness, ? HSM EXT: edema in LE bilaterally more in right leg, there is no right calf muscle tenderness today . NEURO: Generalized weakness, ? FND PSYCH: nl affect, ? hallucinations, nl speech, AOx3. Objective Lab Results 02/15/24 07:03 02/15/24 07:03 Microbiology Results Microbiology 02/14/24 12:51 Blood - Left Antecubital Blood Culture - Preliminary No Growth 1 Day 02/14/24 12:46 Blood - Right Hand Blood Culture - Preliminary No Growth 1 Day 02/14/24 11:50 Urine - Straight Cath Urine Culture - Preliminary Klebsiella pneumoniae 02/15/24 02:10 Stool Stool Lactoferrin - Final 02/14/24 13:32 Nasopharyngeal SARS-CoV-2, Influenza & RSV (PCR) - Final Meds Allergies and Active Meds Allergies acetaminophen [Percocet] Allergy (Unknown, Verified 02/14/24 13:17) vomiting oxycodone [Percocet] Allergy (Unknown, Verified 02/14/24 13:17) vomiting aspirin Adverse Reaction (Verified 02/14/24 13:17) Vomiting Active Meds: Active Medications Generic Name Dose Route Start Last Admin Trade Name Freq PRN Reason Stop Dose Admin Acetaminophen 650 mg 02/14/24 17:46 02/15/24 03:53 Acetaminophen 325 Mg Tablet PO 02/13/25 17:45 650 mg Q6H PRN Administration Pain 1-5 or fever Albuterol 2.5 mg 02/14/24 17:46 Albuterol Neb 2.5 Mg/3 Ml Vial.Neb INHALATION 02/13/25 17:45 Q3H PRN Shortness Of Breath Guaifenesin 600 mg 02/14/24 21:00 02/15/24 10:11 Guaifenesin 600 Mg Tab.Er.12h PO 02/13/25 20:59 600 mg BID JERILYN Administration Heparin Sodium (Porcine) 5,000 unit 02/14/24 09:00 02/15/24 10:12 Heparin 5,000 Unit/Ml Vial SUBCUT 02/13/25 08:59 5,000 unit BID JERILYN Administration Azithromycin 500 mg in 250 mls @ 250 mls/hr 02/15/24 12:00 02/15/24 12:15 Zithromax IV 250 mls/hr Q24H JERILYN Administration Ceftriaxone Sodium 1 gm in 50 mls @ 100 mls/hr 02/15/24 12:00 02/15/24 13:35 Rocephin IV 100 mls/hr Q24H JERILYN Administration Lactated Ringer's 1,000 mls @ 125 mls/hr 02/14/24 18:00 02/15/24 07:45 Lactated Ringers IV 02/13/25 17:59 125 mls/hr .Q8H JERILYN Administration Magnesium Sulfate 2 gm in 50 mls @ 25 mls/hr 02/14/24 17:46 02/15/24 10:13 Magnesium Sulf 2gm-*Swfi* IV 02/13/25 17:45 25 mls/hr DAILY PRN Administration Hypomagnesemia <1.7 Mg/dl Ondansetron HCl 4 mg 02/14/24 17:46 Ondansetron 4 Mg/2 Ml Vial IV-PUSH 02/13/25 17:45 Q6H PRN Nausea And Vomiting Potassium Chloride 40 meq 02/14/24 17:46 Potassium Chloride Er 20 Meq Tab.Er.Prt PO 02/13/25 17:45 DAILY PRN Hypokalemia Sodium Chloride 0 ml 02/14/24 11:38 02/14/24 18:48 Sodium Chloride 0.9 % 10 Ml Syringe IV-PUSH 02/13/25 11:37 10 ml PRN PRN Administration Flush A&P - Hospitalist Assessment/Plan (1) Pneumonia: (2) CAD (coronary artery disease): (3) GERD (gastroesophageal reflux disease): (4) COPD (chronic obstructive pulmonary disease): Plan Documented By: Lucho Grullon MD 02/15/24 7251 Signed By: <Electronically signed by Lucho Grullon MD> 02/16/[address] [facility] Work Phone: 1(924) 400-174704-20-2024 History and physical note Author Lucho Grullon [facility] February 15, 2024 12:58am Note Date/Time February 14, 2024 5:5 9pm [facility] [address] [place] [address] Hospitalist H&P Signed Patient: Gera Perdue MR#: [id number] : 1945 Acct:[id number] Age/Sex: 78 / F Adm Date: 4 Loc: 3T Room: 3U1729-7 Type: ADM IN Attending Dr: Lucho Grullon MD Copies to: DO Lucho Zambrano MD~ HPI DATE OF EXAMINATION: 02/14/24 HISTORY OF PRESENT ILLNESS: This is a pleasant 78F with PMH of HTN, HLD, COPD, CRF (on Home O2), CAD (s/p stenting), GERD, Depression, Glaucoma, h/o Diverticulitis, Nephrolithiasis, MO(BMI >40) who presented with N/V/D and admitted for the evaluation and treatment of suspected PNA and dehydration For the past two days, she has been experiencing diarrhea, nausea, and non- bloody emesis, occurring multiple times both day and night. She has also reported intermittent abdominal pain, a productive cough producing a small amount of yellow sputum, and extreme fatigue that has confined her to bed. She denies dysuria, rash, recent contact with sick individuals, or recent travel. ROS: Ten Systems reviewed with the patient, all negative except what stated above Assessment And Plan Acute Gastroenteritis Volume depletion The patient presents with nausea, vomiting and diarrhea. She is afebrile in the hospital. She is hemodynamically stable, there is mild leukocytosis but no left shift CT abd shows dependent gas within the bladder lumen. There is wall thickening with accompanying fat stranding in the transverse colon, descending colon, and sigmoid colon It is likely viral infection however i can?t rule out bacterial Liquid diet Stool Lactoferrin Stool Cx C. Diff IVF and supportive treatment Rule out Bacterial pneumonia She p/w productive cough CXR ED shows Interstitial prominence is noted bilaterally with mild hazy perihilar airspace opacity on the right. COVID-19 / Flu A/B / RSV is negative bacterial/atypical infection cannot be rule out, therefore he was started on Empiric Abx Blood Cx pending O2 Supplement Empiric Abx: Ceftriaxone and Azithromycin IV Breathing Tx if needed Respiratory Cx Mucinex Pyuria Her Sx is likely due to above rather to be due to UTI Leg swelling Rule out DVT She has LE swelling R>L with there is tenderness in the right lower extremity ultrasound preliminary report was negative for dvt EKG ED (i personally reviewed it) shows NSR@ 99 bpm no acute changes ? Chronic diseases:?Unless mentioned Above, Essential home medications have been continued.? DVT Px:?Addressed Code Status: FULL, discussed with patient Plan of care Discussed with:?the medical team, the patient [facility] Medical History Intertrochanteric fracture of left hip Aug 2020 Pulmonary HTN Diverticulitis Sleep apnea Kidney stone Umbilical hernia GERD (gastroesophageal reflux disease) Depression Arthritis COPD (chronic obstructive pulmonary disease) HLD (hyperlipidemia) HTN (hypertension) Surgical History History of colostomy reversal History of colostomy Hx of heart artery stent History of back surgery Family History Mother Bone cancer Sister Cancer Father Heart problem Brother Hypertension Legacy FamHx Relation: Brother(s) Daughter Heart disease Legacy FamHx Relation: Daughter(s) Hypertension Legacy FamHx Relation: Daughter(s) Legacy FamHx Relation: Daughter(s); Legacy FamHx Problem: 1 daughter 55 cancer:1 daughter 40 murdered:1 daughter alive chron Cancer Legacy FamHx Relation: Daughter(s); Legacy FamHx Problem: Diagnosed with Cancer Father Family history of mental disorder Legacy FamHx Problem: Diagnosed with Mental Illness Family/Other Legacy FamHx Problem: 1 sister colon cancer 1 daughter murder:1 sister alive stents heart, stomach cancer 1 daughter alive alcoholic and drug abuse Mother Cancer Legacy FamHx Problem: Diagnosed with Cancer Sister Heart disease Cancer Legacy [facility] Problem: Diagnosed with Cancer Family history of coronary artery bypass graft Social History Smoking Status: Former smoker Tobacco Type: cigarettes Substance Use Type: None Social History Comments: Patient advised she lives in a mobile home with a caregiver. Meds Medications and Allergies Allergies acetaminophen [Percocet] Allergy (Unknown, Verified 02/14/24 13:17) vomiting oxycodone [Percocet] Allergy (Unknown, Verified 02/14/24 13:17) vomiting aspirin Adverse Reaction (Verified 02/14/24 13:17) Vomiting Home Medications acetaminophen 325 mg tablet 650 mg (2 x 325 mg) PO Q4H PRN Pain Scale 1 - 5 #0 tabs 09/21/20 [Rx Confirmed 08/17/23] alendronate 70 mg tablet 70 mg PO QWEEK 30 days #30 tabs 09/21/20 [Rx Confirmed 08/17/23] atorvastatin 40 mg tablet 40 mg PO QPM 30 days #30 tabs 09/21/20 [Rx Confirmed 08/17/23] bupropion HCl 300 mg 24 hr tablet, extended release 300 mg PO QAM 30 days #30 tabs 09/21/20 [Rx Confirmed 08/18/23] cholecalciferol (vitamin D3) 25 mcg (1,000 unit) tablet 2,000 unit PO DAILY 30 days #30 tabs 09/21/20 [Rx Confirmed 08/18/23] ipratropium 0.5 mg-albuterol 3 mg (2.5 mg base)/3 mL nebulization soln 3 ml inhalation BID 3 days #250 mL 09/21/20 [Rx Confirmed 08/17/23] metoprolol succinate 50 mg tablet,extended release 24 hr 50 mg PO DAILY 30 days #30 tabs 09/21/20 [Rx Confirmed 08/18/23] pantoprazole 40 mg tablet,delayed release (Protonix) 40 mg PO DAILY 30 days #30 tabs 09/21/20 [Rx Confirmed 08/18/23] paroxetine HCl 40 mg tablet (Paxil) 40 mg PO QAM 30 days #30 tabs 09/21/20 [Rx Confirmed 08/18/23] pregabalin 75 mg capsule 75 mg PO BID 30 days #60 caps 09/21/20 [Rx Confirmed 08/17/23] albuterol sulfate 90 mcg/actuation aerosol inhaler 2 inh inhalation Q6H PRN bronchospasm 7 days #8 grams 05/31/22 [Rx Confirmed 08/17/23] triamcinolone acetonide 0.1 % topical cream 1 applic topical BID 12/26/22 [History Confirmed 08/17/23] clopidogrel 75 mg tablet 75 mg PO DAILY #0 tabs 12/31/22 [Rx Confirmed 08/18/23] fluticasone fur. 100 mcg-umeclid 62.5 mcg-vilant 25 mcg inhalat.powder (Trelegy Ellipta) 1 inh inhalation DAILY 07/10/23 [History Confirmed 08/17/23] lisinopril 5 mg tablet 5 mg PO DAILY 07/10/23 [History Confirmed 08/18/23] nystatin 100,000 unit/gram topical powder (Nystop) 1 applic topical BID 07/10/23[History Confirmed 08/17/23] melatonin 3 mg tablet 3 mg PO HS PRN Sleep 07/11/23 [History Confirmed 08/17/23] furosemide 40 mg tablet 60 mg PO DAILY 08/17/23 [History Confirmed 08/18/23] cefdinir 300 mg capsule 300 mg PO BID 3 days #6 caps 08/20/23 [Rx] Exam Physical Exam Vital Signs: Temp Pulse Resp BP Pulse Ox O2 Del Method O2 Flow Rate 36.8 C 105 H 20 119/69 92 L Nasal Cannula 4 02/14/24 16:43 02/14/24 16:43 02/14/24 16:43 02/14/24 16:43 02/14/24 16:43 02/14/24 16:46 02/14/24 16:46 Narrative: GEN: Pleasant, Cooperative, Not in acute distress. NECK: Supple, ? JVD LUNGS: CTA. normal respiratory effort. CHEST: no chest wall tenderness. CV: S1S2 nl, ? M/R/G ABD: Soft, ND, mild nonlocalized tenderness move in the umbical area , + BS, ? rebound/guarding, ?CVA tenderness, ? HSM EXT: edema in LE bilaterally more in right leg, there is right calf muscle tenderness. NEURO: Generalized weakness, ? FND, CN II-XII (intact), Motor Strength (4+/5 RUE, 4+/5 LUE, 4/5 RLE, 4/5 LLE) , Sensation (Intact to soft touch), rapid alternating movements and finger to nose test normal and symmetric. PSYCH: nl affect, ? hallucinations, nl speech, AOx3. Results - Hospitalist H&P Lab Results Labs: Laboratory Last Values Corrected WBC 13.6 X10E3/uL (3.8-11.6) H 02/14/24 11:39 Uncorrected WBC Count 13.6 x10E3/uL (3.8-11.6) H 02/14/24 11:39 RBC 5.04 X10E6/uL (3.60-5.00) H 02/14/24 11:39 Hgb 12.2 g/dL (11.8-15.4) 02/14/24 11:39 Hct 38.5 % (34.0-46.4) 02/14/24 11:39 MCV 76.4 fl (80-100) L 02/14/24 11:39 MCH 24.3 pg (24.7-34.3) L 02/14/24 11:39 MCHC 31.8 g/dL (32.0-35.0) L 02/14/24 11:39 RDW 18.4 % (11.9-15.3) H 02/14/24 11:39 Plt Count 448 x10E3/uL (150-450) 02/14/24 11:39 MPV 7.0 fl (6.3-10.7) 02/14/24 11:39 Neut % (Auto) 62.7 % (.) 02/14/24 11:39 Lymph % (Auto) 23.7 % (.) 02/14/24 11:39 [place] % (Auto) 12.3 % (.) 02/14/24 11:39 Eos % (Auto) 0.4 % (.) 02/14/24 11:39 Baso % (Auto) 0.9 % (.) 02/14/24 11:39 Nucleat RBC Rel Count 0.1 /100 WBC (0-0.5) 02/14/24 11:39 Neut # (Auto) 8.5 x10E3/uL (1.8-7.7) H 02/14/24 11:39 Lymph # (Auto) 3.2 x10E3/uL (1.00-4.8) 02/14/24 11:39 [place] # (Auto) 1.7 x10E3/uL (0.0-0.8) H 02/14/24 11:39 Eos # (Auto) 0.0 x10E3/uL (0.0-0.45) 02/14/24 11:39 Baso # (Auto) 0.1 x10E3/uL (0.0-0.2) 02/14/24 11:39 Monocyte Dist Width 25.16 % (0.00-20.00) H 02/14/24 11:39 Platelet Estimate Normal (Normal) 02/14/24 11:39 Plt Morphology Comment Normal (Normal) 02/14/24 11:39 RBC Morphology Normal (Normal) 02/14/24 11:39 PHA Creatinine Clear 32.86 02/14/24 11:39 Sodium 138 mmol/L (136-145) 02/14/24 11:39 Potassium 4.0 mmol/L (3.5-5.1) 02/14/24 11:39 Chloride 97 mmol/L (98-107) L 02/14/24 11:39 Carbon Dioxide 30.8 mmol/L (21.0-31.0) 02/14/24 11:39 Anion Gap 14.2 mEq/L (6.0-15.0) 02/14/24 11:39 BUN 18 mg/dL (7-25) 02/14/24 11:39 Creatinine 1.32 mg/dL (0.60-1.20) H 02/14/24 11:39 Est GFR (CKD-EPI) 41.325 mL/Min 02/14/24 11:39 Glucose 85 mg/dL (70-100) 02/14/24 11:39 Lactic Acid 0.8 mmol/L (0.5-2.2) 02/14/24 12:51 Calcium 9.5 mg/dL (8.6-10.3) 02/14/24 11:39 Magnesium 1.1 mg/dL (1.9-2.7) L 02/14/24 11:39 Total Bilirubin 0.5 mg/dl (0.3-1.0) 02/14/24 11:39 AST 11 U/L (13-39) L 02/14/24 11:39 ALT 5 U/L (7-52) L 02/14/24 11:39 Alkaline Phosphatase 75 U/L (34-104) 02/14/24 11:39 Troponin I High Sens 6.5 pg/mL (0.0-15.0) 02/14/24 11:39 B-Natriuretic Peptide 29.0 pg/mL (5-100) 02/14/24 11:39 Total Protein 7.9 gm/dL (6.4-8.9) 02/14/24 11:39 Albumin 3.7 gm/dL (3.5-5.7) 02/14/24 11:39 Globulin 4.2 gm/dL 02/14/24 11:39 Albumin/Globulin Ratio 0.9 02/14/24 11:39 Amylase 10 U/L (29-103) L 02/14/24 11:39 Lipase 6.0 U/L (11.0-82.0) L 02/14/24 11:39 Urine Color Dark yellow (Yellow) A 02/14/24 11:50 Urine Appearance Clear (Clear) 02/14/24 11:50 Urine pH 5.5 (5.0-9.0) 02/14/24 11:50 Ur Specific [place] 1.024 (1.001-1.030) 02/14/24 11:50 Urine Protein 30 mg/dL (Negative) H 02/14/24 11:50 Urine Glucose (UA) Normal mg/dL (Normal) 02/14/24 11:50 Urine Ketones Trace (Negative) H 02/14/24 11:50 Urine Occult Blood Trace (Negative) H 02/14/24 11:50 Urine Nitrite Positive (Negative) H 02/14/24 11:50 Urine Bilirubin Negative (Negative) 02/14/24 11:50 Urine Urobilinogen Normal mg/dL (Normal) 02/14/24 11:50 Ur Leukocyte Esterase 3+ (Negative) H 02/14/24 11:50 Urine RBC 0-1 /HPF (0-4) 02/14/24 11:50 Urine WBC 50-100 /HPF (0-4) H 02/14/24 11:50 Ur Squamous Epith Cells None seen /HPF (0-2) 02/14/24 11:50 Urine Bacteria 4+ (None Seen) H 02/14/24 11:50 Hyaline Casts 9-19 /LPF (0-8) H 02/14/24 11:50 SARS-CoV-2 Rap RNA(RT-PCR) Negative (Negative) 02/14/24 13:32 Microbiology Results Micro: Microbiology - Results from entire visit 02/14/24 13:32 Nasopharyngeal SARS-CoV-2, Influenza & RSV (PCR) - Final Assessment & Plan Assessment/Plan (1) Pneumonia: (2) CAD (coronary artery disease): (3) GERD (gastroesophageal reflux disease): (4) COPD (chronic obstructive pulmonary disease): Plan IP vs OBS Justification Based on differential dx, clinical care plan, and risk of adverse events, if untreated, in my clinical judgement this patient requires an acute care setting as: INPATIENT because of an expectation of an over 2 midnight stay. Estimated length of stay (# of days): 3 Documented By: Lucho Grullon MD 02/14/24 4701 Signed By: <Electronically signed by Lucho Grullon MD> 02/15/[address] [facility] Work Phone: [phone] History of Present illness Narrative* Jenna Engle MD - 02/10/2024 12:30 PM EDT This is a follow-up visit from December 2023. Extensive past medical history as noted below. Patient has extensive past cardiac history, and prolonged recent hospital stay. Story is that she was diagnosed with MRSA bacteremia, endocarditis was suspected, daughter does not know the exact source of the MRSA, patient does get frequent urinary tract infections. Transesophageal echocardiogram was attempted on more than 1 occasion, with inability to pass probe, and patient was treated with 6 weeks of antibiotics. Her other medications have been reviewed. At previous office visit we counseledher about nicotine, down titrated the metoprolol with goal to discontinue after 2 weeks, deferred anemia issues to primary, echocardiogram blood work and chest x-ray were ordered, and CODE STATUS wasrediscussed. Subjective : Denies fever chills weight loss. Denies chest pressure tightness heaviness or palpitations History so Far : 1. Longstanding nicotine dependence with COPD, currently hypoxemic respiratory failure on oxygen. 2. Primary hypertension 3. Obstructive sleep apnea 4. Chronic kidney disease stage IIIb 5. Patient was transferred to [facility] from [facility] for nephrology consultation for ARTURO on CKD along with hyperkalemia. This occurred in September 2023. Prior to that she had been living [facility], and has been in and out of [facility] on multiple occasions, being treated for urinary tract infection and community-acquired pneumonia. 6. Baseline creatinine 2.0. 7. Developed CODE BLUE during hospital stay. This appears to have been a PEA. Patient required brief intubation. 8. MRSA bacteremia during hospital stay September 2023 9. PE workup was negative September 2023, mild basilar opacification/atelectasis was noted 10. Moderate to severe coronary calcification chest CT September 2023 11. Continues to smoke about half pack per day 12. Aspirin intolerance 13. Echocardiogram September 2023-LVEF 70% normal RV size and systolic function left atrial volume index normal at 11 mm/m mild thickening of the aortic valve leaflets trace aortic regurgitation no aortic stenosis trace mitral regurgitation no mitral stenosis trace tricuspid regurgitation normal aortic root size normal IVC no pericardial effusion 14. Venous duplex lower extremities September 2023-no evidence of DVT 15. CAD-underwent PCI and stenting of mid circumflex 2.75 x 23 mm Xience Kelly drug-eluting stent postdilated with 3.25 noncompliant balloon April 2019 16. Echocardiogram January 2024-LVEF 65 to 70% no regional wall motion abnormalities impaired relaxation pattern of LV diastolic filling normal left atrial size normal RV size normal RV systolic function no pericardial effusion grossly normal valves left atrial diameter 2.5 cm aortic root diameter 3.4 cm LV end-systolic diameter 2.8 cm RVSP 21 mmHg Objective Failed to redirect to the Timeline version of the [employer] SmartLink. Wt Readings from Last 3 Encounters: 02/10/24 81.6 kg (180 lb) 01/27/24 87.1 kg (192 lb) 01/06/24 87.1 kg (192 lb) Visit Vitals BP 120/70 (BP Location: Left arm, Patient Position: Sitting) Pulse 96 Ht 1.524 m (5') Wt 81.6 kg (180 lb) BMI 35.15 kg/m Smoking Status Some Days BSA 1.86 m Physical Exam: GENERAL APPEARANCE: in no acute distress. CHEST: Symmetric and non-tender. INTEGUMENT: Skin warm and dry HEENT: No gross abnormalities identified.No pallor or scleral icterus. NECK: Supple, no JVD, no bruit. NEURO/PSHCY: Alert and oriented x3; appropriate behavior and responses and responses LUNGS: Clear to auscultation bilaterally; normal respiratory effort. Breath sounds are distant HEART: Rate and rhythm regular with no evident murmur; no gallop appreciated. ABDOMEN: Soft, non tender. MUSCULOSKELETAL: No gross deformities. EXTREMITIES: Warm There is mild edema noted. Meds: Current Outpatient Medications Medication Instructions acetaminophen (TYLENOL) 500 mg, oral, Every 8 hours PRN alendronate (FOSAMAX) 70 mg, oral, Every 7 days, Take in the morning with a full glass of water, cristina empty stomach, and do not take anything else by mouth or lie down for the next 30 min. atorvastatin (LIPITOR) 40 mg, oral, Daily buPROPion XL (WELLBUTRIN XL) 300 mg, oral, Daily, Do not crush, chew, or split. calcium carbonate 600 mg, oral, 2 times daily with meals cholecalciferol, vitamin D3, 75 mcg (3,000 unit) tablet oral, 1 TAB BID clopidogrel (PLAVIX) 75 mg, oral, Daily famotidine (PEPCID) 20 mg, oral, Daily furosemide (LASIX) 40 mg, oral, 1 1.5 TAB DAILY ipratropium-albuteroL (Duo-Neb) 0.5-2.5 mg/3 mL nebulizer solution 3 mL, nebulization, Every 6 hours RT melatonin 5 mg, oral, 1 TAB NIGHT nystatin (Mycostatin) 100,000 unit/gram powder 1 Application, Topical potassium chloride CR 10 mEq ER tablet 10 mEq, oral, Daily, Do not crush, chew, or split. pregabalin (LYRICA) 75 mg, oral, 2 times daily Allergies Allergen Reactions Aspirin Other and Nausea/vomiting Other Reaction(s): Mental Status Change LABS: Reviewed results of laboratory data chest x-ray echocardiogram and EKG. In December 2023 GFR was 47 sodium 144 potassium 4.5 BUN 31 creatinine 1.18 hemoglobin 11.3 hematocrit 35.7 MCV 78.7 platelets 330sed rate 34 BNP 358 upper normal is 100. Chest x-ray without infiltrates or effusions Patient Active Problem List Diagnosis Date Noted Chronic hypoxemic respiratory failure (Multi) 02/10/2024 Encounter to discuss test results 02/10/2024 BMI 35.0-35.9,adult 01/06/2024 History of PTCA 01/06/2024 Stage 3b chronic kidney disease (Multi) 01/06/2024 Obstructive sleep apnea syndrome 01/06/2024 Chronic respiratory failure with hypoxia (Multi) 01/06/2024 Microcytic anemia 01/06/2024 Cough with expectoration 01/06/2024 Current smoker 01/06/2024 Frequent UTI 01/06/2024 Angina pectoris ([facility]) 12/04/2023 Coronary artery disease 12/04/2023 Dyspnea 12/04/2023 Essential hypertension 12/04/2023 Hyperlipidemia, mixed 12/04/2023 Assessment: 1. Shortness of breath Follow Up In Cardiology 2. Coronary artery disease involving [place] coronary artery of [place] heart without angina pectoris 3. History of PTCA 4. Essential hypertension 5. Hyperlipidemia, mixed 6. Obstructive sleep apnea syndrome 7. BMI 35.0-35.9,adult 8. Current smoker 9. Chronic hypoxemic respiratory failure (Multi) 10. Encounter to discuss test results Clinical decision making: No clinical evidence of endocarditis. Lab and echo results reviewed No change in cardiac medications Multiple comorbidities as noted under past medical history, laboratory data reviewed. Primary goal is patient's comfort Patient to follow-up with Dr. Salas on a regular basis, and I will see her on an as-needed basis. Thank you for allowing me to participate in Gera's care, please do not hesitate to call if further questions arise, Sincerely, Jenna Engle MD [facility] Follow up : prn Scribe Attestation By signing my name below, IHoa LPN, Scribe attest that this documentation has been prepared under the direction and in the presence of Jenna Engle MD. Provider Attestation - Scribe documentation All medical record entries made by the Scribe were at my direction and personally dictated by me. Francesco reviewed the chart and agree that the record accurately reflects my personal performance of the history, physical exam, discussion and plan. documented in this encounter[facility] Work Phone: [phone]) 565-231004-15-2024 Instructions* Patient Instructions* Hoa Buck LPN - 02/10/2024 12:30 PM EDT Please bring all medicines, vitamins, and herbal supplements with you when you come to the office. Prescriptions will not be filled unless you are compliant with your follow up appointments or have a follow up appointment scheduled as per instruction of your physician. Refills should be requested at the time of your visit. BMI was above normal measurement. Current weight: 81.6 kg (180 lb) Weight change since last visit (-) denotes wt loss -12 lbs Weight loss needed to achieve BMI 25: 52.3 Lbs Weight loss needed to achieve BMI 30: 26.7 Lbs Provided instructions on dietary changes Provided instructions on exercise. Follow up ordered as needed only documented in this encounterUniversity [facility] Work Phone: [phone]) 482-348604-04-2024 Hospital Discharge instructions Patient Education 01/30/2024 14:50:25 Urinary Tract Infection, Adult Urinary Tract Infection, Adult A urinary tract infection (UTI) is an infection of any part of the urinary tract. The urinary tractincludes the kidneys, ureters, bladder, and urethra. These organs make, store, and get rid of urinein the body. An upper UTI affects the ureters and kidneys. A lower UTI affects the bladder and urethra. What are the causes? Most urinary tract infections are caused by bacteria in your genital area around your urethra, where urine leaves your body. These bacteria grow and cause inflammation of your urinary tract. What increases the risk? You are more likely to develop this condition if: You have a urinary catheter that stays in place. You are not able to control when you urinate or have a bowel movement (incontinence). You are female and you: ?Use a spermicide or diaphragm for control. ?Have low estrogen levels. ?Are . You have certain genes that increase your risk. You are sexually active. You take antibiotic medicines. You have a condition that causes your flow of urine to slow down, such as: ?An enlarged prostate, if you are male. ?Blockage in your urethra. ?A kidney stone. ?A nerve condition that affects your bladder control (neurogenic bladder). ?Not getting enough to drink, or not urinating often. You have certain medical conditions, such as: ?Diabetes. ?A weak disease-fighting system (immunesystem). ?Sickle cell disease. ?Gout. ?Spinal cord injury. What are the signs or symptoms? Symptoms of this condition include: Needing to urinate right away (urgency). Frequent urination. This may include small amounts of urine each time you urinate. Pain or burning with urination. Blood in the urine. Urine that smells bad or unusual. Trouble urinating. Cloudy urine. Vaginal discharge, if you are female. Pain in the abdomen or the lower back. You may also have: Vomiting or a decreased appetite. Confusion. Irritability or tiredness. A fever or chills. Diarrhea. The first symptom in older adults may be confusion. In some cases, they may not have any symptoms until the infection has worsened. How is this diagnosed? This condition is diagnosed based on your medical history and a physical exam. You may also have other tests, including: Urine tests. Blood tests. Tests for STIs (sexually transmitted infections). If you have had more than one UTI, a cystoscopy or imaging studies may be done to determine the cause of the infections. How is this treated? Treatment for this condition includes: Antibiotic medicine. Fmot-[id number] medicines to treat discomfort. Drinking enough water to stay hydrated. If you have frequent infections or have other conditions such as a kidney stone, you may need to see a health care provider who specializes in the urinary tract (urologist). In rare cases, urinary tract infections can cause sepsis. Sepsis is a life- threatening condition that occurs when the body responds to an infection. Sepsis is treated in the hospital with IV antibiotics, fluids, and other medicines. Follow these instructions at home: Medicines Take [id number] and prescription medicines only as told by your health care provider. If you were prescribed an antibiotic medicine, take it as told by your health care provider. Do notstop using the antibiotic even if you start to feel better. General instructions Make sure you: ?Empty your bladder often and completely. Do not hold urine for long periods of time. ?Empty your bladder after sex. ?Wipe from front to back after urinating or having a bowel movement if you are female. Use each tissue only one time when you wipe. Drink enough fluid to keep your urine pale yellow. Keep all follow-up visits. This is important. Contact a health care provider if: Your symptoms do not get better after 1 2 days. Your symptoms go away and then return. Get help right away if: You have severe pain in your back or your lower abdomen. You have a fever or chills. You have nausea or vomiting. Summary A urinary tract infection (UTI) is an infection of any part of the urinary tract, which includes the kidneys, ureters, bladder, and urethra. Most urinary tract infections are caused by bacteria in your genital area. Treatment for this condition often includes antibiotic medicines. If you were prescribed an antibiotic medicine, take it as told by your health care provider. Do notstop using the antibiotic even if you start to feel better. Keep all follow-up visits. This is important. This information is not intended to replace advice given to you by your health care provider. Make sure you discuss any questions you have with your health care provider. Document Revised: 05/26/2021 Document Reviewed: 05/26/2021 [employer] Patient Education 2022 IT MOVES IT. 01/30/2024 14:50:24 Urinary Incontinence Urinary Incontinence Urinary incontinence refers to a condition in which a person is unable to control where and when topass urine. A person with this condition will urinate involuntarily. This means that the person urinates when he or she does not mean to. What are the causes? This condition may be caused by: Medicines. Infections. Constipation. Overactive bladder muscles. Weak bladder muscles. Weak pelvic floor muscles. These muscles provide support for the bladder, intestine, and, in women,the uterus. Enlarged prostate in men. The prostate is a gland near the bladder. When it gets too big, it can pinch the urethra. With the urethra blocked, the bladder can weaken and lose the ability to empty properly. Surgery. Emotional factors, such as anxiety, stress, or post-traumatic stress disorder (PTSD). Spinal cord injury, nerve injury, or other neurological conditions. Pelvic organ prolapse. This happens in women when organs move out of place and into the vagina. This movement can prevent the bladder and urethra from working properly. What increases the risk? The following factors may make you more likely to develop this condition: Age. The older you are, the higher the risk. Obesity. Being physically inactive. and childbirth. Menopause. Diseases that affect the nerves or spinal cord. Long-term, or chronic, coughing. This can increase pressure on the bladder and pelvic floor muscles. What are the signs or symptoms? Symptoms may vary depending on the type of urinary incontinence you have. They include: A sudden urge to urinate, and passing urine involuntarily before you can get to a bathroom (urge incontinence). Suddenly passing urine when doing activities that force urine to pass, such as coughing, laughing, exercising, or sneezing (stress incontinence). Needing to urinate often but urinating only a small amount, or constantly dribbling urine (overflowincontinence). Urinating because you cannot get to the bathroom in time due to a physical disability, such as arthritis or injury, or due to a communication or thinking problem, such as Alzheimer's disease (functional incontinence). How is this diagnosed? This condition may be diagnosed based on: Your medical history. A physical exam. Tests, such as: ?Urine tests. ?X-rays of your kidney and bladder. ?Ultrasound. ?CT scan. ?Cystoscopy. In this procedure, a health care provider inserts a tube with a light and camera (cystoscope) through the urethra and into the bladder to check for problems. ?Urodynamic testing. These tests assess how well the bladder, urethra, and sphincter can store and release urine. There are different types of urodynamic tests, and they vary depending on what the test is measuring. To help diagnose your condition, your health care provider may recommend that you keep a log of when you urinate and how much you urinate. How is this treated? Treatment for this condition depends on the type of incontinence that you have and its cause. Treatment may include: Lifestyle changes, such as: ?Quitting smoking. ?Maintaining a healthy weight. ?Staying active. Try to get 150 minutes of moderate-intensity exercise every week. Ask your health care provider which activities are safe for you. ?Eating a healthy diet. ?Avoid high-fat foods, like fried foods. ?Avoid refined carbohydrates like white bread and white rice. ?Limit how much alcohol and caffeine you drink. ?Increase your fiber intake. Healthy sources of fiber include beans, whole grains, and fresh fruitsand vegetables. Behavioral changes, such as: ?Pelvic floor muscle exercises. ?Bladder training, such as lengthening the amount of time between bathroom breaks, or using the bathroom at regular intervals. ?Using techniques to suppress bladder urges. This can include distraction techniques or controlled breathing exercises. Medicines, such as: ?Medicines to relax the bladder muscles and prevent bladder spasms. ?Medicines to help slow or prevent the growth of a man's prostate. ?Botox injections. These can help relax the bladder muscles. Treatments, such as: ?Using pulses of electricity to help change bladder reflexes (electrical nerve stimulation). ?For women, using a medical claims processor to prevent urine leaks. This is a small, tampon-like, disposabledevice that is inserted into the urethra. ?Injecting collagen or carbon beads (bulking agents) into the urinary sphincter. These can help thicken tissue and close the bladder opening. ?Surgery. Follow these instructions at home: Lifestyle Limit alcohol and caffeine. These can fill your bladder quickly and irritate it. Keep yourself clean to help prevent odors and skin damage. Ask your health care provider about special skin creams and cleansers that can protect the skin from urine. Consider wearing pads or adult diapers. Make sure to change them regularly, and always change them right after experiencing incontinence. General instructions Take crbk-[id number]-[id number] and prescription medicines only as told by your health care provider. Use the bathroom about every 3 4 hours, even if you do not feel the need to urinate. Try to empty your bladder completely every time. After urinating, wait a minute. Then try to urinate again. Make sure you are in a relaxed position while urinating. If your incontinence is caused by nerve problems, keep a log of the medicines you take and the times you go to the bathroom. Keep all follow-up visits. This is important. Where to find more information [employer] [place] [employer]estive [employer] Kidney Diseases: www.niddk.nih.gov [employer]: www.urologyhealth.org Contact a health care provider if: You have pain that gets worse. Your incontinence gets worse. Get help right away if: You have a fever or chills. You are unable to urinate. You have redness in your groin area or down your legs. Summary Urinary incontinence refers to a condition in which a person is unable to control where and when topass urine. This condition may be caused by medicines, infection, weak bladder muscles, weak pelvic floor muscles, enlargement of the prostate (in men), or surgery. Factors such as older age, obesity, and childbirth, menopause, neurological diseases, andchronic coughing may increase your risk for developing this condition. Types of urinary incontinence include urge incontinence, stress incontinence, overflow incontinence, and functional incontinence. This condition is usually treated first with lifestyle and behavioral changes, such as quitting smoking, eating a healthier diet, and doing regular pelvic floor exercises. Other treatment options include medicines, bulking agents, medical devices, electrical nerve stimulation, or surgery. This information is not intended to replace advice given to you by your health care provider. Make sure you discuss any questions you have with your health care provider. Document Revised: 05/19/2021 Document Reviewed: 05/19/2021 [employer] Patient Education 2022 IT MOVES IT. 01/30/2024 14:50:21 Overactive Bladder, Adult Overactive Bladder, Adult Overactive bladder is a condition in which a person has a sudden and frequent need to urinate. A person might also leak urine if he or she cannot get to the bathroom fast enough (urinary incontinence). Sometimes, symptoms can interfere with work or social activities. What are the causes? Overactive bladder is associated with poor nerve signals between your bladder and your brain. Your bladder may get the signal to empty before it is full. You may also have very sensitive muscles thatmake your bladder squeeze too soon. This condition may also be caused by other factors, such as: Medical conditions: ?Urinary tract infection. ?Infection of nearby tissues. ?Prostate enlargement. ?Bladder stones, inflammation, or tumors. ?Diabetes. ?Muscle or nerve weakness, especially from these conditions: ?A spinal cord injury. ?Stroke. ?Multiple sclerosis. ?Parkinson's disease. Other causes: ?Surgery on the uterus or urethra. ?Drinking too much caffeine or alcohol. ?Certain medicines, especially those that eliminate extra fluid in the body (diuretics). ?Constipation. What increases the risk? You may be at greater risk for overactive bladder if you: Are an older adult. Smoke. Are going through menopause. Have prostate problems. Have a neurological disease, such as stroke, dementia, Parkinson's disease, or multiple sclerosis (MS). Eat or drink alcohol, spicy food, caffeine, and other things that irritate the bladder. Are overweight or obese. What are the signs or symptoms? Symptoms of this condition include a sudden, strong urge to urinate. Other symptoms include: Leaking urine. Urinating 8 or more times a day. Waking up to urinate 2 or more times overnight. How is this diagnosed? This condition may be diagnosed based on: Your symptoms and medical history. A physical exam. Blood or urine tests to check for possible causes, such as infection. You may also need to see a health care provider who specializes in urinary tract problems. This is called a urologist. How is this treated? Treatment for overactive bladder depends on the cause of your condition and whether it is mild or severe. Treatment may include: Bladder training, such as: ?Learning to control the urge to urinate by following a schedule to urinate at regular intervals. ?Doing Kegel exercises to strengthen the pelvic floor muscles that support your bladder. Special devices, such as: ?Biofeedback. This uses sensors to help you become aware of your body's signals. ?Electrical stimulation. This uses electrodes placed inside the body (implanted) or outside the body. These electrodes send gentle pulses of electricity to strengthen the nerves or muscles that control the bladder. ?Women may use a plastic device, called a pessary, that fits into the vagina and supports the bladder. Medicines, such as: ?Antibiotics to treat bladder infection. ?Antispasmodics to stop the bladder from releasing urine at the wrong time. ?Tricyclic antidepressants to relax bladder muscles. ?Injections of botulinum toxin type A directly into the bladder tissue to relax bladder muscles. Surgery, such as: ?A device may be implanted to help manage the nerve signals that control urination. ?An electrode may be implanted to stimulate electrical signals in the bladder. ?A procedure may be done to change the shape of the bladder. This is done only in very severe cases. Follow these instructions at home: Eating and drinking Make diet or lifestyle changes recommended by your health care provider. These may include: ?Drinking fluids throughout the day and not only with meals. ?Cutting down on caffeine or alcohol. ?Eating a healthy and balanced diet to prevent constipation. This may include: ?Choosing foods that are high in fiber, such as beans, whole grains, and fresh fruits and vegetables. ?Limiting foods that are high in fat and processed sugars, such as fried and sweet foods. Lifestyle Lose weight if needed. Do not use any products that contain nicotine or tobacco. These include cigarettes, chewing tobacco, and vaping devices, such as e-cigarettes. If you need help quitting, ask your health care provider. General instructions Take lilt-cdl-ingjhtu and prescription medicines only as told by your health care provider. If you were prescribed an antibiotic medicine, take it as told by your health care provider. Do notstop taking the antibiotic even if you start to feel better. Use any implants or pessary as told by your health care provider. If needed, wear pads to absorb urine leakage. Keep a log to track how much and when you drink, and when you need to urinate. This will help your health care provider monitor your condition. Keep all follow-up visits. This is important. Contact a health care provider if: You have a fever or chills. Your symptoms do not get better with treatment. Your pain and discomfort get worse. You have more frequent urges to urinate. Get help right away if: You are not able to control your bladder. Summary Overactive bladder refers to a condition in which a person has a sudden and frequent need to urinate. Several conditions may lead to an overactive bladder. Treatment for overactive bladder depends on the cause and severity of your condition. Making lifestyle changes, doing Kegel exercises, keeping a log, and taking medicines can help with this condition. This information is not intended to replace advice given to you by your health care provider. Make sure you discuss any questions you have with your health care provider. Document Revised: 07/03/2021 Document Reviewed: 07/03/2021 [employer] Patient Education 2022 IT MOVES IT. Follow Up Care 01/13/2024 09:25:34 With:CHIP Ponce APRN, Renae Delaney, JYOTI, URL Address: When: Unknown Comments:pending cysto/UD [facility] Ryann 04-04-2024 Evaluation + Plan note Diagnostic Tests Pending * Urine Culture 01/30/24 [facility]03-11-2024 History of Present illness Narrative* Jenna Engle MD - 01/06/2024 11:15 AM EDT Referred by . History Of Present Illness: Gera Perdue is a 78 y.o. female presenting with her daughter who identifies herself as surely. Daughter is primarily involved in her care. Patient has extensive past cardiac history, and prolonged recent hospital stay. Story is that she was diagnosed with MRSA bacteremia, endocarditis was susp ected, daughter does not know the exact source of the MRSA, patient does get frequent urinary tractinfections. Transesophageal echocardiogram was attempted on more than 1 occasion, with inability topass probe, and patient was treated with 6 weeks of antibiotics. Her other medications have been reviewed. Reviewed extensive records from [facility].. Past Medical History: 1. Longstanding nicotine dependence with COPD, currently hypoxemic respiratory failure on oxygen. 2. Primary hypertension 3. Obstructive sleep apnea 4. Chronic kidney disease stage IIIb 5. Patient was transferred to [facility] from [facility] for nephrology consultation for ARTURO on CKD along with hyperkalemia. This occurred in September 2023. Prior to that she had been living [facility], and has been in and out of [facility] on multiple occasions, being treated for urinary tract infection and community-acquired pneumonia. 6. Baseline creatinine 2.0. 7. Developed CODE BLUE during hospital stay. This appears to have been a PEA. Patient required brief intubation. 8. MRSA bacteremia during hospital stay September 2023 9. PE workup was negative September 2023, mild basilar opacification/atelectasis was noted 10. Moderate to severe coronary calcification chest CT September 2023 11. Continues to smoke about half pack per day 12. Aspirin intolerance 13. Echocardiogram September 2023-LVEF 70% normal RV size and systolic function left atrial volume index normal at 11 mm/m mild thickening of the aortic valve leaflets trace aortic regurgitation no aortic stenosis trace mitral regurgitation no mitral stenosis trace tricuspid regurgitation normal aortic root size normal IVC no pericardial effusion 14. Venous duplex lower extremities September 2023-no evidence of DVT 15. CAD-underwent PCI and stenting of mid circumflex 2.75 x 23 mm Xience Kelly drug-eluting stent postdilated with 3.25 noncompliant balloon April 2019 Past Surgical History: She has a past surgical history that includes Other surgical history (01/15/2022); Other surgical history (01/15/2022); Other surgical history (01/15/2022); Other surgical history (01/15/2022); and Other surgical history (01/15/2022). Social History: She reports that she has been smoking cigarettes. She has been smoking an average of 1 pack per day. She has never used smokeless tobacco. She reports that she does not drink alcohol and does not usedrugs. Family History: Family History Problem Relation Name Age of Onset Hypertension Mother Cancer Mother Other (high triglycerides) Mother Allergies: Ibuprofen, ASA Outpatient Medications: Current Outpatient Medications Medication Instructions acetaminophen (TYLENOL) 500 mg, oral, Every 8 hours PRN alendronate (FOSAMAX) 70 mg, oral, Every 7 days, Take in the morning with a full glass of water, cristina empty stomach, and do not take anything else by mouth or lie down for the next 30 min. atorvastatin (LIPITOR) 40 mg, oral, Daily buPROPion XL (WELLBUTRIN XL) 300 mg, oral, Daily, Do not crush, chew, or split. calcium carbonate 600 mg, oral, 2 times daily with meals cholecalciferol, vitamin D3, 75 mcg (3,000 unit) tablet oral, 1 TAB BID clopidogrel (PLAVIX) 75 mg, oral, Daily famotidine (PEPCID) 20 mg, oral, Daily furosemide (LASIX) 40 mg, oral, 1 1.5 TAB DAILY ipratropium-albuteroL (Duo-Neb) 0.5-2.5 mg/3 mL nebulizer solution 3 mL, nebulization, Every 6 hours RT melatonin 5 mg, oral, 1 TAB NIGHT nystatin (Mycostatin) 100,000 unit/gram powder 1 Application, Topical potassium chloride CR 10 mEq ER tablet 10 mEq, oral, Daily, Do not crush, chew, or split. pregabalin (LYRICA) 75 mg, oral, 2 times daily Last Recorded Vitals: Vitals: 01/06/24 1138 01/06/24 1139 BP: 130/76 128/72 BP Location: Right arm Left arm Patient Position: Sitting Sitting Pulse: 62 Weight: 87.1 kg (192 lb) Height: 1.626 m (5' 4 ) Physical Exam: GENERAL APPEARANCE: Well developed, well nourished, in no acute distress. CHEST: Symmetric and non-tender. INTEGUMENT: Skin warm and dry, without gross excoriationis or lesions. HEENT: No gross abnormalities, no jugular venous distention no carotid bruit or scleral icterus NECK: Supple, no JVD, no bruit. Thyroid not palpable. Carotid upstrokes normal. NEURO/PSHCY: Alert and oriented x3; appropriate behavior and responses and responses, with normal balance and coordination LUNGS: Very distant breath sounds no crepitations or rhonchi, decreased air movement HEART: Rate and rhythm regular with no evident murmur; no gallop appreciated. There are no rubs, clicks or heaves. ABDOMEN: Soft, nontender, no masses or bruits. MUSCULOSKELETAL: No obvious deformity identified EXTREMITIES: Warm There is 2plus edema noted. Patient was examined in the wheelchair. Labs reviewed today : Laboratory data reviewed from September 2023, sodium 137 potassium 4.4, BNP 86, CRP 6.5, hemoglobin 8.5 hematocrit 26 MCV 79 platelets 551 EKG was reviewed Assessment/Plan Diagnoses and all orders for this visit: Shortness of breath - Transthoracic Echo Complete; Future - Follow Up In Cardiology; Future - ECG 12 Lead - Comprehensive Metabolic Panel; Future - CBC; Future - Sedimentation Rate; Future - B-Type Natriuretic Peptide; Future - XR chest 2 views; Future Coronary artery disease involving [place] coronary artery of [place] heart without angina pectoris Stage 3b chronic kidney disease (CMS/HCC) Microcytic anemia History of PTCA Essential hypertension Hyperlipidemia, mixed Obstructive sleep apnea syndrome Chronic respiratory failure with hypoxia (CMS/HCC) Frequent UTI BMI 32.0-32.9,adult Cough with expectoration Current smoker 1. Shortness of breath 2. Coronary artery disease involving [place] coronary artery of [place] heart without angina pectoris 3. Stage 3b chronic kidney disease (CMS/HCC) 4. Microcytic anemia 5. History of PTCA 6. Essential hypertension 7. Hyperlipidemia, mixed 8. Obstructive sleep apnea syndrome 9. Chronic respiratory failure with hypoxia (CMS/HCC) 10. Frequent UTI 11. BMI 32.0-32.9,adult 12. Cough with expectoration 13. Current smoker Patient with multiple comorbidities, atherosclerotic [place] vessel coronary artery disease and riskfactors, recent prolonged hospital stay with acute kidney injury hypoxemic respiratory failure ruled out for pulmonary embolism MRSA bacteremia preserved LV systolic function, now has findings of COPD with decreased air movement, acute on chronic shortness of breath, which is most likely pulmonary based on clinical evaluation. I do not believe that the estimated PA systolic pressure is accurate. Lower extremity edema is due to dependent position decreased venous tone and also possibly cor pulmonale. Unfortunately she continues to smoke. She has history of atherosclerotic [place] vessel coronary artery disease with intolerance to aspirin, she remains on clopidogrel. She also has significant anemia etiology of which is unclear to me. She denies any bleeding diathesis. Her activity level is very limited because of shortness of breath. BNP level is normal at 86 At this time patient is functional class III chronic hypoxemic respiratory failure possible cor pulmonale Recommendations: Extensive discussion about nicotine cessation Down titrate metoprolol to 25 mg p.o. daily with goal to discontinue after 2 weeks. Her anemia needs to be addressed and treating anemia may improve her breathing. Will repeat echocardiogram, obtain comprehensive profile CBC sed rate and the BNP level. Chest x-ray PA lateral reordered CODE STATUS rediscussed-she does not want to be DNR CC, she would like resuscitation, and moved to a DNR CC status if there is no sign of meaningful recovery. Follow-up in 4 to 6 weeks sooner if interval problems arise Follow-up with primary care, pulmonary referral may be prudent. Consider pulmonary rehabilitation, defer to . Thank you for allowing us to participate in Gera's care, please do not hesitate to call if further questions arise, Sincerely, Jenna Engle MD [facility] Scribe Attestation By signing my name below, I, Yaquelin Gama LPN , Scribe attest that this documentation has been prepared under the direction and in the presence of Jenna Engle MD. Provider Attestation - Scribe documentation All medical record entries made by the Scribe were at my direction and personally dictated by me. Ihave reviewed the chart and agree that the record accurately reflects my personal performance of the history, physical exam, discussion and plan. documented in this [facility] Work Phone: 1(291) 149-876503-11-2024 Instructions* Patient Instructions* Yaquelin Garcia LPN - 01/06/2024 11:15 AM EDT Please bring all medicines, vitamins, and herbal supplements with you when you come to the office. Prescriptions will not be filled unless you are compliant with your follow up appointments or have a follow up appointment scheduled as per instruction of your physician. Refills should be requested at the time of your visit. BMI was above normal measurement. Current weight: 87.1 kg (192 lb) Weight change since last visit (-) denotes wt loss 192 lbs Weight loss needed to achieve BMI 25: 46.7 Lbs Weight loss needed to achieve BMI 30: 17.6 Lbs Provided instructions on dietary changes. Decrease metoprolol succ to 25mg daily for two weeks then stop documented in this [facility] Work Phone: 1(574) 442-471802-12-2024 History of Present illness Narrative* Lilliam Cheek, [employer] SET UP OPERATOR - 12/09/2023 11:00 AM EST Subjective Patient ID: Gera Perdue (: 1945) is a 78 y.o. female who presents for Hospital Follow-up. HPI Pt presents and daughter present for hospital follow up. Pt was admitted to [facility] in early September for ARTURO, UTI, and sepsis. Patient was then discharged to the [facility] in [place]. Pt was released from the [facility] on 11/28/2023. She is supposed to be getting HH however the company they were r eferred to is short staffed so her family has been caring for her. Today patient has complaints of shortness of breath and bilateral leg swelling. Pt denies urinary symptoms. She is currently finishing her Levaquin as she was started on at the [facility]. Pt did also receive weeks of Daptomycin through a PICC line which has since been discontinued. UTI's are reoccurring for patient. Patient does notcurrently follow with urology. Current Outpatient Medications Medication Instructions acetaminophen (Tylenol) 500 MG tablet 1 tablet, Oral, Every 8 hours PRN atorvastatin (Lipitor) 40 MG tablet 1 tablet, Oral, Daily buPROPion XL (Wellbutrin XL) 300 MG 24 hr tablet 1 tablet, Oral, Every 24 hours calcium carbonate 1500 (600 Ca) MG tablet 1 tablet, Oral, Every 12 hours cholecalciferol (Vitamin D-3) 50 MCG (2000 UT) capsule 1 capsule, Oral, Every 24 hours clopidogrel (Plavix) 75 MG tablet 1 tablet, Oral, Every 24 hours furosemide (Lasix) 40 MG tablet 1 1/2 tab=60 mg once daily ipratropium-albuterol (Duo-Neb) 0.5-2.5 mg/3 mL nebulizer solution 3 mL, Nebulization, Every 12 hours levoFLOXacin (LEVAQUIN) 500 mg, Oral, Daily Melatonin 5 MG capsule 1 tablet, Oral, Nightly PRN metoprolol succinate XL (Toprol-XL) 50 MG 24 hr tablet TAKE 1 TABLET BY MOUTH EVERY DAY nystatin (Mycostatin) 217166 UNIT/GM powder APPLY TOPICALLY TO THE AFFECTED AREA(S) TWICE A DAY pantoprazole (ProtoNix) 40 MG EC tablet 1 tablet, Oral, Every 24 hours PARoxetine (PAXIL) 40 mg, Oral, Every morning potassium chloride ER (Micro-K) 10 MEQ ER capsule 20 mEq, Oral, Daily RT predniSONE (Deltasone) 20 MG tablet TAKE 1 TABLET BY MOUTH ONCE A DAY pregabalin (Lyrica) 75 MG capsule 1 capsule, Oral, 2 times daily Allergies Allergen Reactions Aspirin Other Reaction(s): Mental Status Change Oxycodone-Acetaminophen GI intolerance Patient Active Problem List Diagnosis Age related osteoporosis (CMS/HCC) Atherosclerotic heart disease of [place] coronary artery without angina pectoris (CMS/HCC) Carotid stenosis Chronic obstructive pulmonary disease (CMS/HCC) Essential hypertension (CMS/HCC) Failed back surgical syndrome Hyperlipidemia (CMS/HCC) 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) (CMS/HCC) Primary osteoarthritis Stage 3a chronic kidney disease (HCC) (CMS/HCC) Primary osteoarthritis of left knee Abdominal hernia Anxiety Arthritis At risk for falls Chronic ulcer of left foot with fat layer exposed (CMS/HCC) Colon polyps Constipation COPD (chronic obstructive pulmonary disease) (CMS/HCC) Depression (CMS/HCC) Dermatitis Diverticulosis Encephalopathy Fall Female incontinence GERD (gastroesophageal reflux disease) Heart disease HLD (hyperlipidemia) (CMS/HCC) Incisional hernia without obstruction or gangrene Insomnia Lower extremity edema Neck pain Obesity OM (onychomycosis) Osteoporosis (CMS/HCC) S/P right coronary artery (RCA) stent placement S/P total left hip arthroplasty Sinus tarsi syndrome of left foot Plantar verruca Sleep apnea SOB (shortness of breath) Spinal stenosis TIA (transient ischemic attack) Tobacco abuse Localized edema Hospital discharge follow-up Review of Systems Constitutional: Positive for activity change, appetite change and fatigue. Negative for chills, fever and unexpected weight change. Respiratory: Positive for shortness of breath and wheezing. Negative for cough. Cardiovascular: Positive for leg swelling. Negative for chest pain and palpitations. Gastrointestinal: Negative for abdominal pain, constipation, diarrhea, nausea and vomiting. Genitourinary: Negative for difficulty urinating, dysuria, frequency and urgency. Musculoskeletal: Positive for gait problem. Neurological: Negative for dizziness, light-headedness and headaches. Objective Vital signs: BP 122/72 Pulse 106 Temp 97.5 F Wt 175 lb SpO2 96% BMI 34.18 kg/m Recent Results (from the past 2016 hour(s)) [facility] CULTURE URINE Collection Time: 09/22/23 12:00 PM Result Value Ref Range [facility] CULTURE URINE O:KLEPNE Isolated [facility] CULTURE URINE Urine Culture [place] Count [facility] CULTURE URINE >100,000 CFU/ml [facility] CULTURE URINE Organism: 1.1 Antibiotic Interpretation NATALIA Status [facility] CULTURE URINE (S) Amikacin S <=2 F [facility] CULTURE URINE (R) Ampicillin R F [facility] CULTURE URINE (S) Ampicillin/Sulbactam S 4 F [facility] CULTURE URINE (S) Cefazolin S <=4 F [facility] CULTURE URINE (S) Ceftazidime S <=1 F [facility] CULTURE URINE (S) Ceftriaxone S <=1 F [facility] CULTURE URINE (S) Ciprofloxacin S <=0.25 F [facility] CULTURE URINE (S) Ertapenem S <=0.5 F [facility] CULTURE URINE (S) Gentamicin S <=1 F [facility] CULTURE URINE (S) Imipenem S <=0.25 F [facility] CULTURE URINE (S) Levofloxacin S <=0.12 F [facility] CULTURE URINE (I) Nitrofurantoin I 64 F [facility] CULTURE URINE (S) Tobramycin S <=1 F [facility] CULTURE URINE (S) Trimethoprim/Sulfamethoxazole S <=20 F [facility] CULTURE URINE (S) Piperacillin/Tazobactam S <=4 F BLOOD CULTURE 1 Collection Time: 09/24/23 12:53 PM Result Value Ref Range BLOOD CULTURE 1 Blood Culture 1 NG5D NO GROWTH AT 5 DAYS.^NO GROWTH AT 5 DAYS. BLOOD CULTURE 2 Collection Time: 09/24/23 12:57 PM Result Value Ref Range BLOOD CULTURE 2 Blood Culture 2 NG5D NO GROWTH AT 5 DAYS.^NO GROWTH AT 5 DAYS. Physical Exam Constitutional: Comments: Frail appearing HENT: Head: Normocephalic. Mouth/Throat: Mouth: Mucous membranes are moist. Eyes: Pupils: Pupils are equal, round, and reactive to light. Cardiovascular: Rate and Rhythm: Regular rhythm. Tachycardia present. Pulmonary: Breath sounds: Wheezing and rhonchi present. Abdominal: Palpations: Abdomen is soft. Musculoskeletal: Right lower leg: Edema (non pitting) present. Left lower leg: Edema (non pitting) present. Neurological: Mental Status: She is alert and oriented to person, place, and time. Psychiatric: Mood and Affect: Mood normal. Assessment/Plan Problem List Items Addressed This Visit Essential hypertension ([facility]/HCC) Relevant Orders CBC and differential Comprehensive metabolic panel Hyperlipidemia ([facility]) Stage 3a chronic kidney disease (HCC) ([facility]) Relevant Orders Urinalysis with microscopic Magnesium SOB (shortness of breath) - Primary Hospital discharge follow-up Other Visit Diagnoses Wheezing Urinary tract bacterial infections Relevant Orders Urinalysis with microscopic Urine culture (clean catch) Sepsis with acute renal failure without septic shock, due to unspecified organism, unspecified acute renal failure type ([facility]) Medication management Patient presents today with daughter for hospital/senior living follow up. Patient was admitted to [facility] (all hospital records are in Care Everywhere and were reviewed prior to and during appt). With UTI, ARTURO and sepsis. She did receive IV antibiotics through a PICC line which has since been removed. She was discharged to the [facility] for senior living for three weeks and was discharged on11/28/2023. Patient is currently finishing oral Levaquin. Patient denies urnary symptoms or fevers today. Patient does have complaints of leg swelling and shortness of breath. Assessment does consist of wheezing and rhonchi. Daughter did bring a large bag with multiple medications that needed reviewed and sorted out. This GRAVURE [employer]ESS SET UP OPERATOR did review each medication and compared it to the discharge summary from the [facility]. Each medication was discussed and placed in proper labeled bags to assist in the proper set up at home. Patient does have an order for HH however the company does not have enough staff. I am going to send an order to [facility] as this patient needs and requires a HH nurse, aide, medical social consultant and PT. CCM will also be consulted. Patient does discuss concerns of a prolapsed bladder being apossible cause of the UTI's which this does need assessed in a timely manner. Referral sent to PATIENT PARTNER.Advised daughter to call office within 5-7 days if she has not heard anything to address the above r eferrals. Patient is currently supposed to be taking Prednisone 20 mg a day which she has not been doing. This was given at the [facility]. Due to the wheezing and shortness of breath I advised they to 40 mg a day for 3 days and finish the rest of the 20 mg a day until finished. Patient and daughter instructed to call office with any questions or to seek ER if symptoms worsen. Patient does have an infectious disease follow up on 12/02/2023 and web support engineer on 01/06/2024. Patient will return to the office for a follow up with Dr. Salas in 3 weeks with updated labs. These lab orders were given to daughter. Dr. Salas did seen patient also at today's visit. All questions and concerns were addressedat this time. Patient has not taken Fosamax for the past few months. I do have this on hold until we discuss further at follow up appt. Patient does need new tubing for her breathing machine I will address this with [facility]. Health Maintenance Topic Date Due Diabetes: Retinopathy Screening Never done Diabetes: Urine Protein Screening Never done Diabetes: Hemoglobin A1C 02/26/2023 Medicare Annual Wellness (AWV) 04/01/2024 Influenza Vaccine Completed Pneumococcal Vaccine: 65+ Years Completed Immunization History Administered Date(s) Administered Influenza, High Dose Seasonal, Preservative Free 08/23/2015, 07/26/2016, 08/02/2017, 07/14/2018, 11/07/2020, 07/30/2022 Influenza, High-dose Seasonal, Quadrivalent, Preservative Free 08/22/2015, 07/25/2016, 08/01/2017, 07/13/2018, 07/30/2022 Influenza, seasonal, injectable 07/26/2014 Influenza, trivalent, adjuvanted 08/04/2020 Moderna SARS-CoV-2 Vaccination 02/10/2021, 03/09/2021 PPD Test 12/31/2022 Pneumococcal Conjugate PCV 13 07/26/2016 Pneumococcal Polysaccharide PPSV23 06/08/2021 SARS-COV-2 (COVID-19) vaccine, mRNA, spike protein, LNP, PF, 50 mcg/0.5 mL 09/20/2023 SARS-COV-2 (COVID-19) vaccine, mRNA, spike protein, LNP, bivalent, preservative free, 30 mcg/0.3 mLdose, monserrat-sucrose formulation 01/07/2023 -Patient's chronic conditions have been reviewed in preparation for this appointment. Protocols reviewed and updated. A collaborative plan of care has been created for pt regarding specific health concerns. Any barriers to care have been identified and addressed. Any part of this document that has been added/copied from other documents has been reviewed for accuracy and updated as appropriate at the time of the patient encounter. -Follow up for 3 week follow up with labs. documented in this encounterResearch Medical [id number] Miscellaneous Notes* Telephone Encounter - Yvonne Kelly RN - 11/12/2023 2:42 PM EST Called Alethea-Patient's daughter back after r/s hospital followup with Dr Galicia for 11-22-2023. Our office does not participate with her Mom's insurance-[facility] [employer]. Appt cancelled. Alethea to call her Mom's [facility] [employer] Customer Service to see what Ellen GUZMAN is on her plan. Alethea to call office back so we can send a referral. documented in this encounterMer[facility]24 Telephone encounter Note* Telephone Encounter - Yvonne Kelly RN - 11/12/2023 2:42 PM EST Called Alethea-Patient's daughter back after r/s hospital followup with Dr Galicia for 11-22-2023. Our office does not participate with her Mom's insurance-[facility] [employer]. Appt cancelled. Alethea to call her Mom's [facility] [employer] Customer Service to see what Ellen GUZMAN is on her plan. Alethea to call office back so we can send a referral. [facility]01-16-2024 Miscellaneous Notes* Telephone Encounter - Nirmala Shirley - 11/12/2023 10:18 AM EST ALETHEA IS CALLING SINCE PT TESTED POSITIVE FOR COVID. PLEASE CALL AND ADVISE ABOUT THE HOSPITAL DISCHARGE FOLLOW UP SHE CAN BE REACHED AT [phone] * Telephone Encounter - Yvonne Kelly RN - 11/12/2023 10:18 AM EST Patient is in isolation until 11-17-2023. Appt r/s with Dr Galicia for 10:30a documented in this encounterMarietta Memorial HospitalHealth eVillages [id number] Telephone encounter Note* Telephone Encounter - Nirmala Shirley - 11/12/2023 10:18 AM EST ALETHEA IS CALLING SINCE PT TESTED POSITIVE FOR COVID. PLEASE CALL AND ADVISE ABOUT THE HOSPITAL DISCHARGE FOLLOW UP SHE CAN BE REACHED AT [phone] [facility] [id number] Telephone encounter Note* Telephone Encounter - Yvonne Kelly RN - 11/12/2023 10:18 AM EST Patient is in isolation until 11-17-2023. Appt r/s with Dr Galicia for 10:30a [facility] Miscellaneous Notes* Telephone Encounter - Avtar Ortega - 10/30/2023 12:37 PM EST New patient/Hospital Follow Up DX: Sleep Apnea Scheduled 01/10/24 w/ Dr. Gallagher [facility] Paperwork sent: 10/30/23. Please send paperwork to: [employer] @ [employer] [address] [place], [place] [id number] Ins verified (OON notification); NO WORKMAN'S COMP; NO ACCIDENT documented in this encounterHolden Memorial HospitalIEMO [id number] Telephone encounter Note* Telephone Encounter - Amrit Ortega - 10/30/2023 12:37 PM EST New patient/Hospital Follow Up DX: Sleep Apnea Scheduled 01/10/24 w/ Dr. Gallagher [facility] Paperwork sent: 10/30/23. Please send paperwork to: [employer] @ [employer] [address] [address] Ins verified (OON notification); NO WORKMAN'S COMP; NO ACCIDENT [facility] [employer] [id number] Discharge summary Author Jesus Alberto Aquino [facility] August 20, 2023 1:32pm Note Date/Time August 20, 2023 1 :32pm [facility] [address] [place] [address] Discharge Summary Signed Patient: Gera Perdue MR#: [id number] : 1945 Acct:[id number] Age/Sex: 77 / F Adm Date: 3 Loc: Room: [address] [place] [address]: Jesus Alberto Aquino MD Copies to: MD Gustavo Keen,DO~ Providers Date of Discharge: 08/20/23 Discharging Provider: Jesus Alberto Aquino Primary Care Provider: Gustavo Saals Consults: 08/17/23 19:45 Consult to Occupational Therapy Routine Consult to Physical Therapy Routine 08/18/23 02:22 Consult to Case Management Routine 08/19/23 10:53 Consult to Dietitian Routine Discharge Diagnosis Final Diagnosis Final Discharge Diagnosis: Intravascular volume depletion due to nausea vomiting and diarrhea, with ARTURO Sepsis due to UTI present on admission Metabolic encephalopathy due to the above Chronic problems COPD Nephrolithiasis Sleep apnea Nephrolithiasis Pulm hypertension GERD Hypertension Dyslipidemia Summary Hospital Course Hospital course: Patient is a 77-year-old female, who presented to the emergency department on August 17, complaining of weakness, nausea, vomiting, diarrhea. Initial evaluation suggested the presence of urinary tract infection with sepsis and acute metabolic encephalopathy. She was admitted to the hospital. She was hydrated IV fluids. She received IV ceftriaxone. Her renal failure resolved. Blood cultures remain negative. No complications occurred, and she was discharged in stable condition on August 20. She will continue a brief course of oral antibiotics for 3 more days. Time Spent with Patient Time spent providing/coordinating discharge services (# min): 35 Diagnostic Studies Completed and Pending Studies Pending studies at discharge: 08/17/23 18:38 Blood Culture Stat 08/19/23 08:40 Stool Culture Stat Preliminary micro results at discharge 08/19/23 08:40 Stool Culture - Preliminary Stool 08/17/23 18:38 Blood Culture - Preliminary Blood - Left Antecubital No Growth 2 Days 08/17/23 18:49 Blood Culture - Preliminary Blood - Right Hand No Growth 2 Days Labs on day of discharge: 08/20/23 06:20: PHA Creatinine Clear 41.58, Sodium 143, Potassium 4.2, Chloride 109 H, Carbon Dioxide 25.5, Anion Gap 12.7, BUN 19, Creatinine 1.08 D, Est GFR (CKD- EPI) 52.905, Glucose 57 L, Calcium 7.5 L Exam Physical Exam Vital Signs: Temp Pulse Resp BP Pulse Ox O2 Del Method 98.1 F 85 20 138/83 92 L Room Air 08/20/23 08:00 08/20/23 12:27 08/20/23 12:27 08/20/23 08:00 08/20/23 08:00 08/20/23 08:00 Discharge Plan Discharge Plan Patient Disposition: [facility] Facility Activity: No Activity Restriction Diet: Regular Additional Instructions: SNF TO MANAGE: PT/OT to eval and treat Monitor VS per protocol Monitor Neuro. assessment--Encephalopathy Monitor Urinary assessment and for increased signs of infection--UTI, Sepsis Monitor assessment--ARTURO Daily dressing change to left lower posterior leg abrasions: *Clean with NS and pat dry. Hydrogel to the wound bed. Top with Telfa. Secure with Conform and stockinette. Skin Care BID: Theraworx protect to bilateral abdominal and breast fold redness. Skin care every 3 days: Mepilex border foam to Coccyx for protection. Maintain high risk fall precautions Care to be managed by SNF providers Prescriptions: New cefdinir 300 mg capsule 300 mg PO BID 3 Days Qty: 6 0RF Continued atorvastatin 40 mg Tablet 40 mg PO QPM 30 Days Qty: 30 0RF acetaminophen 325 mg Tablet 650 mg PO Q4H PRN (Reason: Pain Scale 1 - 5) Qty: 0 0RF metoprolol succinate 50 mg Tablet Extended Release 24 Hr 50 mg PO DAILY 30 Days Qty: 30 0RF pregabalin 75 mg Capsule 75 mg PO BID 30 Days Qty: 60 0RF alendronate 70 mg tablet 70 mg PO QWEEK 30 Days Qty: 30 0RF Patient Comments: TAKE 1 TABLET BY MOUTH 30 MINUTES BEFORE FIRST FOOD, BEVERAGE OR MEDICINE WITH PLAIN WATER ONCE A WEEK Rx Instructions: must sit up for 30min post admin pantoprazole [Protonix] 40 mg tablet,delayed release (DR/EC) 40 mg PO DAILY 30 Days Qty: 30 0RF Patient Comments: paroxetine HCl [Paxil] 40 mg tablet 40 mg PO QAM 30 Days Qty: 30 0RF Patient Comments: bupropion HCl 300 mg Tablet Extended Release 24 Hr 300 mg PO QAM 30 Days Qty: 30 0RF cholecalciferol (vitamin D3) 25 mcg (1,000 unit) Tablet 2,000 unit PO DAILY 30 Days Qty: 30 0RF ipratropium-albuterol 0.5 mg-3 mg(2.5 mg base)/3 mL Solution For Nebulization 3 ml inhalation BID 3 Days Qty: 250 0RF albuterol sulfate 90 mcg/actuation HFA aerosol inhaler 2 inh inhalation Q6H PRN (Reason: bronchospasm) 7 Days Qty: 8 0RF Rx Instructions: administer with spacer furosemide 40 mg tablet 60 mg PO DAILY triamcinolone acetonide 0.1 % Cream 1 applic TOPICAL BID clopidogrel 75 mg Tablet 75 mg PO DAILY Qty: 0 0RF nystatin [Nystop] 100,000 unit/gram powder 1 applic TOPICAL BID Patient Comments: APPLY TO AFFECTED AREA(S) TOPICALLY TWICE DAILY Trelegy Ellipta 100-62.5-25 mcg Blister With Device 1 inh INHALATION DAILY lisinopril 5 mg tablet 5 mg PO DAILY Patient Comments: TAKE 1 TABLET BY MOUTH EVERY DAY melatonin 3 mg tablet 3 mg PO HS PRN (Reason: Sleep) Patient Comments: TAKE 1 TABLET BY MOUTH AT BEDTIME Discontinued prednisone 10 mg Tablet 20 mg PO DAILY 6 Days Qty: 12 0RF Taper: Prednisone Taper 20 mg Daily for 3 Days and 0 Hour 10 mg Daily for 3 Days and 0 Hour Rx Instructions: 20mg daily for 3 days then 10mg daily for 3 days Documented By: Jesus Alberto Aquino MD 08/20/23 1329 Signed By: <Electronically signed by Jesus Alberto Aquino MD> 08/20/[address] [facility] Work Phone: 1(682) 683-470810-23-2023 Progress note Author Jesus Alberto Aquino [facility] August 19, 2023 2:43pm Note Date/Time August 19, 2023 2 :43pm [facility] [address] [place] [address] Hospitalist Progress Note Signed Patient: Gera Perdue MR#: [id number] : 1945 Acct:[id number] Age/Sex: 77 / F Adm Date: 3 Loc: Room: [address] [place] [address] Type: ADM IN Attending Dr: Jesus Alberto Aquino MD Copies to: ~ Date of Service: 08/19/2023 Subjective Subjective Narrative: Patient is resting in bed. She has no complaints. Neurological condition improved. She is able to tell me the month and the year. Heart is regular Lungs clear Abdomen soft benign Assessment and plan 1. Urinary tract infection and sepsis. Acute metabolic encephalopathy due to sepsis. 2. ARTURO. Continue ceftriaxone day #3. Cultures no growth. Continue IV fluids Renal function is improving, close to baseline PT OT DVT prophylaxis heparin 3. Bilateral lower extremity edema, right more than left. Duplex ultrasound lower extremity negative Anticipate discharge tomorrow Continue treatment for chronic medical comorbidities with home regimen COPD Nephrolithiasis Sleep apnea Nephrolithiasis Pulm hypertension GERD Hypertension Dyslipidemia Exam Physical Exam Vital Signs: Temp Pulse Resp BP Pulse Ox O2 Del Method 99.4 F H 97 H 16 137/81 92 L Nasal Cannula 08/19/23 12:00 08/19/23 12:00 08/19/23 12:00 08/19/23 12:00 08/19/23 12:00 08/19/23 12:00 Objective Lab Results 08/19/23 06:16 08/19/23 06:16 Microbiology Results Microbiology 08/17/23 18:38 Blood - Left Antecubital Blood Culture - Preliminary No Growth 1 Day 08/17/23 18:49 Blood - Right Hand Blood Culture - Preliminary No Growth 1 Day Meds Allergies and Active Meds Allergies aspirin Adverse Reaction (Verified 07/10/23 09:34) Vomiting Active Meds: Active Medications Generic Name Dose Route Start Last Admin Trade Name Freq PRN Reason Stop Dose Admin Acetaminophen 650 mg 08/17/23 19:44 08/18/23 21:43 Acetaminophen 325 Mg Tablet PO 08/16/24 19:43 650 mg Q4H PRN Administration Pain Scale 1 - 5 Albuterol/Ipratropium 3 ml 08/18/23 08:00 08/19/23 12:08 Ipratropium/Albuterol 0.5-3 Mg 3 Ml Ampul.Neb INHALATION 08/17/24 07:59 3 ml QID.RESP JERILYN Administration Atorvastatin Calcium 40 mg 08/17/23 21:00 08/18/23 21:43 Atorvastatin 40 Mg Tablet PO 08/16/24 20:59 40 mg QPM JERILYN Administration Budesonide 0.25 mg 08/17/23 22:00 08/19/23 08:46 Budesonide 0.25 Mg/2 Ml Ampul.Neb INHALATION 08/16/24 21:59 0.25 mg BID JERILYN Administration Clopidogrel Bisulfate 75 mg 08/18/23 09:00 08/19/23 08:13 Clopidogrel Bisulfate 75 Mg Tablet PO 08/17/24 08:59 75 mg DAILY JERILYN Administration Heparin Sodium (Porcine) 5,000 unit 08/17/23 22:00 08/19/23 05:49 Heparin 5,000 Unit/Ml Vial SUBCUT 08/16/24 21:59 5,000 unit Q8HR JERILYN Administration Ceftriaxone Sodium 1 gm in 50 mls @ 100 mls/hr 08/18/23 09:00 08/19/23 08:14 Rocephin IV 100 mls/hr QAM JERILYN Administration Parenteral Electrolytes 1,000 mls @ 100 mls/hr 08/17/23 21:00 08/19/23 09:59 Plasma-Lyte A Ph 7.4 IV 08/16/24 20:59 100 mls/hr .Q10H JERILYN Administration Metoprolol Succinate 50 mg 08/18/23 09:00 08/19/23 08:13 Metoprolol Succinate 50 Mg Tab.Er.24h PO 08/17/24 08:59 50 mg DAILY JERILYN Administration Nystatin 1 applic 08/17/23 22:00 08/18/23 21:44 Nystatin 100,000 Unit/Gram Powder 15 Gm Bottle TOPICAL 08/16/24 21:59 1 applic BID JERILYN Administration Pantoprazole Sodium 40 mg 08/18/23 09:00 08/19/23 08:13 Pantoprazole 40 Mg Tablet.Dr PO 08/17/24 08:59 40 mg DAILY JERILYN Administration Paroxetine HCl 40 mg 08/18/23 09:00 08/19/23 08:13 Paroxetine 20 Mg Tablet PO 08/17/24 08:59 40 mg QAM JERILYN Administration Sodium Chloride 0 ml 08/17/23 16:06 Sodium Chloride 0.9 % 10 Ml Syringe IV-PUSH 08/16/24 16:05 PRN PRN Flush Documented By: Jesus Alberto Aquino MD 08/19/231441 Signed By: <Electronically signed by Jesus Alberto Aquino MD> 08/19/231442 [facility] Work Phone: 1(716) 425-555310-22-2023 Progress note Author Jesus Alberto Aquino [facility] August 18, 2023 1:49pm Note Date/Time August 18, 2023 1 :49pm [facility] [address] [place] [address] Hospitalist Progress Note Signed Patient: Gera Perdue MR#: [id number] : 1945 Acct:[id number] Age/Sex: 77 / F Adm Date: 3 Loc: Room: [address] [place] [address] Type: ADM IN Attending Dr: Jesus Alberto Aquino MD Copies to: ~ Date of Service: 08/18/2023 Subjective Subjective Narrative: Patient is resting in bed. She has no complaints. She is still oriented to self only, but knows that she is in the hospital. Cannot name it. No focal neurological deficits noted Heart is regular Lungs clear Abdomen soft benign Assessment and plan 1. Urinary tract infection and sepsis. Acute metabolic encephalopathy due to sepsis. 2. ARTURO. Continue ceftriaxone day 2. So far blood cultures negative. Continue IV fluids Renal function is improving PT OT DVT prophylaxis heparin 3. Bilateral lower extremity edema, right more than left. Duplex ultrasound lower extremity pending Continue treatment for chronic medical comorbidities with home regimen COPD Nephrolithiasis Sleep apnea Nephrolithiasis Pulm hypertension GERD Hypertension Dyslipidemia Exam Physical Exam Vital Signs: Temp Pulse Resp BP Pulse Ox O2 Del Method 98 F 84 20 130/66 97 Room Air 08/18/23 08:00 08/18/23 12:02 08/18/23 12:02 08/18/23 11:22 08/18/23 11:22 08/18/23 11:23 Objective Lab Results 08/18/23 06:03 08/18/23 06:03 Meds Allergies and Active Meds Allergies aspirin Adverse Reaction (Verified 07/10/23 09:34) Vomiting Active Meds: Active Medications Generic Name Dose Route Start Last Admin Trade Name Freq PRN Reason Stop Dose Admin Acetaminophen 650 mg 08/17/23 19:44 08/18/23 09:22 Acetaminophen 325 Mg Tablet PO 08/16/24 19:43 650 mg Q4H PRN Administration Pain Scale 1 - 5 Albuterol/Ipratropium 3 ml 08/18/23 08:00 08/18/23 12:02 Ipratropium/Albuterol 0.5-3 Mg 3 Ml Ampul.Neb INHALATION 08/17/24 07:59 3 ml QID.RESP JERILYN Administration Atorvastatin Calcium 40 mg 08/17/23 21:00 08/18/23 00:00 Atorvastatin 40 Mg Tablet PO 08/16/24 20:59 Not Given QPM JERILYN Budesonide 0.25 mg 08/17/23 22:00 08/18/23 05:24 Budesonide 0.25 Mg/2 Ml Ampul.Neb INHALATION 08/16/24 21:59 0.25 mg BID JERILYN Administration Clopidogrel Bisulfate 75 mg 08/18/23 09:00 08/18/23 09:23 Clopidogrel Bisulfate 75 Mg Tablet PO 08/17/24 08:59 75 mg DAILY JERILYN Administration Heparin Sodium (Porcine) 5,000 unit 08/17/23 22:00 08/18/23 05:34 Heparin 5,000 Unit/Ml Vial SUBCUT 08/16/24 21:59 5,000 unit Q8HR JERILYN Administration Ceftriaxone Sodium 1 gm in 50 mls @ 100 mls/hr 08/18/23 09:00 08/18/23 09:24 Rocephin IV 100 mls/hr QAM JERILYN Administration Parenteral Electrolytes 1,000 mls @ 100 mls/hr 08/17/23 21:00 08/18/23 11:22 Plasma-Lyte A Ph 7.4 IV 08/16/24 20:59 100 mls/hr .Q10H JERILYN Administration Metoprolol Succinate 50 mg 08/18/23 09:00 08/18/23 09:23 Metoprolol Succinate 50 Mg Tab.Er.24h PO 08/17/24 08:59 50 mg DAILY JERILYN Administration Nystatin 1 applic 08/17/23 22:00 08/18/23 09:29 Nystatin 100,000 Unit/Gram Powder 15 Gm Bottle TOPICAL 08/16/24 21:59 1 applic BID JERILYN Administration Pantoprazole Sodium 40 mg 08/18/23 09:00 08/18/23 09:23 Pantoprazole 40 Mg Tablet.Dr PO 08/17/24 08:59 40 mg DAILY JERILYN Administration Paroxetine HCl 40 mg 08/18/23 09:00 08/18/23 09:22 Paroxetine 20 Mg Tablet PO 08/17/24 08:59 40 mg QAM JERILYN Administration Sodium Chloride 0 ml 08/17/23 16:06 Sodium Chloride 0.9 % 10 Ml Syringe IV-PUSH 08/16/24 16:05 PRN PRN Flush Documented By: Jesus Alberto Aquino MD 08/18/231347 Signed By: <Electronically signed by Jesus Alberto Aquino MD> 08/18/239 [facility] Work Phone: 1(872) 465-414510-21-2023 History and physical note Author Jesus Alberto Aquino [facility] August 17, 2023 7:50pm Note Date/Time August 17, 2023 7 :50pm [facility] [address] [place] [address] Hospitalist H&P Signed Patient: Gera Perdue MR#: [id number] : 1945 Acct:[id number] Age/Sex: 77 / F Adm Date: 3 Loc: Room: [address] [place] [address] Type: ADM IN Attending Dr: Jesus Alberto Aquino MD Copies to: MD Gustavo Keen,DO~ HPI DATE OF EXAMINATION: 08/17/23 HISTORY OF PRESENT ILLNESS: Patient is a 77-year-old female, who is brought today to the emergency department by EMS on account of fall and severe weakness, nausea vomiting and diarrhea. Patient is quite confused and is unable to provide any meaningful history of present illness. At the time my examination she denies any pain or discomfort apart from the left hip area. She does admit to being weak. No family is available for interview Past medical history from medical records indicates COPD Nephrolithiasis Sleep apnea Nephrolithiasis Pulm hypertension GERD Hypertension Dyslipidemia 10 point review of systems unobtainable due to mental status Physical exam Patient seen in ED Patient appears comfortable, in no distress. Skin is notable for excoriations on both legs. The right leg is more swollen than the left. Joints are without any effusion. Abdomen is soft, benign, no rebound or rigidity. No organomegaly. Bowel sounds present. Heart regular, no gallop, rub or JVD. Peripheral pulses present bilaterally. Lungs are diminished but clear to auscultation, no rales, ronchi or wheezes. HENT normal Neurological: Patient is awake and oriented x2, knows that she is in the hospital but does not know the month or the year. Cannot provide any meaningfulhistory of present illness. Moves all 4 extremities with no motor deficit. Pupils reactive bilaterally. Psych: affect is normal. EKG labs and available imaging reviewed Assessment and plan 1. Urinary tract infection and sepsis. Acute metabolic encephalopathy due to sepsis. 2. ARTURO. Admit patient to the hospital. Continue ceftriaxone IV, follow urine and blood cultures and adjust antibiotics accordingly. Old cultures reviewed. IV fluid hydration Monitor renal function electrolytes. PT OT DVT prophylaxis heparin 3. Bilateral lower extremity edema, right more than left. Duplex ultrasound legs will be obtained Continue treatment for chronic medical comorbidities with home regimen COPD Nephrolithiasis Sleep apnea Nephrolithiasis Pulm hypertension GERD Hypertension Dyslipidemia [facility] Medical History (Updated 08/17/23 @ 19:01 by Maury Morrissey DO) Arthritis COPD (chronic obstructive pulmonary disease) Depression Diverticulitis GERD (gastroesophageal reflux disease) HLD (hyperlipidemia) HTN (hypertension) Intertrochanteric fracture of left hip Aug 2020 Kidney stone Pulmonary HTN Sleep apnea Umbilical hernia Surgical History History of back surgery History of colostomy History of colostomy reversal Hx of heart artery stent Family History Mother Bone cancer Sister Cancer Father Heart problem Social History Smoking Status: Former smoker Tobacco Type: cigarettes Substance Use Type: None Social History Comments: unknown, patient confused and alone Meds Medications and Allergies Allergies aspirin Adverse Reaction (Verified 07/10/23 09:34) Vomiting Home Medications acetaminophen 325 mg tablet 650 mg PO Q4H PRN Pain Scale 1 - 5 #0 tabs 09/21/20 [Rx Confirmed 08/17/23] alendronate 70 mg tablet 70 mg PO QWEEK 30 days #30 tabs 09/21/20 [Rx Confirmed 08/17/23] atorvastatin 40 mg tablet 40 mg PO QPM 30 days #30 tabs 09/21/20 [Rx Confirmed 08/17/23] bupropion HCl 300 mg 24 hr tablet, extended release 300 mg PO QAM 30 days #30 tabs 09/21/20 [Rx Confirmed 08/17/23] cholecalciferol (vitamin D3) 25 mcg (1,000 unit) tablet 2,000 unit PO DAILY 30 days #30 tabs 09/21/20 [Rx Confirmed 08/17/23] ipratropium 0.5 mg-albuterol 3 mg (2.5 mg base)/3 mL nebulization soln 3 ml inhalation BID 3 days #250 mL 09/21/20 [Rx Confirmed 08/17/23] metoprolol succinate 50 mg tablet,extended release 24 hr 50 mg PO DAILY 30 days #30 tabs 09/21/20 [Rx Confirmed 08/17/23] pantoprazole 40 mg tablet,delayed release (Protonix) 40 mg PO DAILY 30 days #30 tabs 09/21/20 [Rx Confirmed 08/17/23] paroxetine HCl 40 mg tablet (Paxil) 40 mg PO QAM 30 days #30 tabs 09/21/20 [Rx Confirmed 08/17/23] pregabalin 75 mg capsule 75 mg PO BID 30 days #60 caps 09/21/20 [Rx Confirmed 08/17/23] albuterol sulfate 90 mcg/actuation aerosol inhaler 2 inh inhalation Q6H PRN bronchospasm 7 days #8 grams 05/31/22 [Rx Confirmed 08/17/23] triamcinolone acetonide 0.1 % topical cream 1 applic topical BID 12/26/22 [History Confirmed 08/17/23] clopidogrel 75 mg tablet 75 mg PO DAILY #0 tabs 12/31/22 [Rx Confirmed 08/17/23] fluticasone fur. 100 mcg-umeclid 62.5 mcg-vilant 25 mcg inhalat.powder (Trelegy Ellipta) 1 inh inhalation DAILY 07/10/23 [History Confirmed 08/17/23] lisinopril 5 mg tablet 5 mg PO DAILY 07/10/23 [History Confirmed 08/17/23] nystatin 100,000 unit/gram topical powder (Nystop) 1 applic topical BID 07/10/23[History Confirmed 08/17/23] melatonin 3 mg tablet 3 mg PO HS PRN Sleep 07/11/23 [History Confirmed 08/17/23] prednisone 10 mg tablet 20 mg PO DAILY 6 days #12 tabs 07/14/23 [Rx Confirmed 08/17/23] furosemide 40 mg tablet 60 mg PO DAILY 08/17/23 [History Confirmed 08/17/23] Exam Physical Exam Vital Signs: Temp Pulse Resp BP Pulse Ox O2 Del Method 97.4 F L 81 18 119/66 94 L Room Air 08/17/23 16:09 08/17/23 18:05 08/17/23 18:05 08/17/23 18:05 08/17/23 18:05 08/17/23 18:05 Results Lab Results Labs: Laboratory Last Values Corrected WBC 29.3 X10E3/uL (3.8-11.6) H 08/17/23 16:05 Uncorrected WBC Count 29.3 x10E3/uL (3.8-11.6) H 08/17/23 16:05 RBC 4.39 X10E6/uL (3.60-5.00) 08/17/23 16:05 Hgb 12.0 g/dL (11.8-15.4) 08/17/23 16:05 Hct 37.9 % (34.0-46.4) 08/17/23 16:05 MCV 86.4 fl (80-100) 08/17/23 16:05 MCH 27.3 pg (24.7-34.3) 08/17/23 16:05 MCHC 31.6 g/dL (32.0-35.0) L 08/17/23 16:05 RDW 17.6 % (11.9-15.3) H 08/17/23 16:05 Plt Count 298 x10E3/uL (150-450) 08/17/23 16:05 MPV 8.8 fl (6.3-10.7) 08/17/23 16:05 Neut % (Auto) 86.5 % (.) 08/17/23 16:05 Lymph % (Auto) 7.8 % (.) 08/17/23 16:05 [place] % (Auto) 5.5 % (.) 08/17/23 16:05 Eos % (Auto) 0.0 % (.) 08/17/23 16:05 Baso % (Auto) 0.2 % (.) 08/17/23 16:05 Nucleat RBC Rel Count 0.1 /100 WBC (0-0.5) 08/17/23 16:05 Neut # (Auto) 25.4 x10E3/uL (1.8-7.7) H 08/17/23 16:05 Lymph # (Auto) 2.3 x10E3/uL (1.00-4.8) 08/17/23 16:05 [place] # (Auto) 1.6 x10E3/uL (0.0-0.8) H 08/17/23 16:05 Eos # (Auto) 0.0 x10E3/uL (0.0-0.45) 08/17/23 16:05 Baso # (Auto) 0.0 x10E3/uL (0.0-0.2) 08/17/23 16:05 Monocyte Dist Width 23.25 % (0.00-20.00) H 08/17/23 16:05 Platelet Estimate Normal (Normal) 08/17/23 16:05 Plt Morphology Comment Normal (Normal) 08/17/23 16:05 RBC Morphology N/A 08/17/23 16:05 Polychromasia Slight 08/17/23 16:05 Hypochromasia Slight 08/17/23 16:05 Anisocytosis Moderate 08/17/23 16:05 PT 12.6 Seconds (9.0-12.9) 08/17/23 16:05 INR 1.1 08/17/23 16:05 APTT 26.3 Seconds (25.1-36.5) 08/17/23 16:05 PHA Creatinine Clear 10.00 08/17/23 16:05 Sodium 143 mmol/L (136-145) 08/17/23 16:05 Potassium 4.5 mmol/L (3.5-5.1) 08/17/23 16:05 Chloride 97 mmol/L (98-107) L 08/17/23 16:05 Carbon Dioxide 27.3 mmol/L (21.0-31.0) 08/17/23 16:05 Anion Gap 23.2 mEq/L (6.0-15.0) H 08/17/23 16:05 BUN 92 mg/dL (7-25) H 08/17/23 16:05 Creatinine 4.44 mg/dL (0.60-1.20) H 08/17/23 16:05 Est GFR (CKD-EPI) 9.700 mL/Min 08/17/23 16:05 Glucose 79 mg/dL (70-100) 08/17/23 16:05 Lactic Acid 1.1 mmol/L (0.5-2.2) 08/17/23 18:49 Calcium 9.1 mg/dL (8.6-10.3) 08/17/23 16:05 Total Bilirubin 0.6 mg/dl (0.3-1.0) 08/17/23 16:05 Direct Bilirubin 0.20 mg/dL (0.03-0.18) H 08/17/23 16:05 Indirect Bilirubin 0.4 mg/dL 08/17/23 16:05 AST 23 U/L (13-39) 08/17/23 16:05 ALT 24 U/L (7-52) 08/17/23 16:05 Alkaline Phosphatase 64 U/L (34-104) 08/17/23 16:05 Total Creatine Kinase 87 U/L (30-223) 08/17/23 16:05 Troponin I High Sens 38.1 pg/mL (0.0-15.0) H 08/17/23 16:05 B-Natriuretic Peptide 68.0 pg/mL (5-100) 08/17/23 16:05 Total Protein 7.1 gm/dL (6.4-8.9) 08/17/23 16:05 Albumin 3.4 gm/dL (3.5-5.7) L 08/17/23 16:05 Globulin 3.7 gm/dL 08/17/23 16:05 Albumin/Globulin Ratio 0.9 08/17/23 16:05 Assessment & Plan IP vs OBS Justification Based on differential dx, clinical care plan, and risk of adverse events, if untreated, in my clinical judgement this patient requires an acute care setting as: INPATIENT because of an expectation of an over 2 midnight stay. Estimated length of stay (# of days): 3 Documented By: Jesus Alberto Aquino MD 08/17/231945 Signed By: <Electronically signed by Jesus Alberto Aquino MD> 08/17/[address] [facility] Work Phone: 1(403) 986-858710-21-2023 History and physical note Author Jesus Alberto Aquino [facility] August 17, 2023 7:50pm Note Date/Time August 17, 2023 7 :50pm [facility] [address] [place] [address] Hospitalist H&P Signed Patient: Gera Perdue MR#: [id number] : 1945 Acct:[id number] Age/Sex: 77 / F Adm Date: 3 Loc: Room: [address] [place] [address] Type: ADM IN Attending Dr: Jesus Alberto Aquino MD Copies to: MD Gustavo Keen,DO~ HPI DATE OF EXAMINATION: 08/17/23 HISTORY OF PRESENT ILLNESS: Patient is a 77-year-old female, who is brought today to the emergency department by EMS on account of fall and severe weakness, nausea vomiting and diarrhea. Patient is quite confused and is unable to provide any meaningful history of present illness. At the time my examination she denies any pain or discomfort apart from the left hip area. She does admit to being weak. No family is available for interview Past medical history from medical records indicates COPD Nephrolithiasis Sleep apnea Nephrolithiasis Pulm hypertension GERD Hypertension Dyslipidemia 10 point review of systems unobtainable due to mental status Physical exam Patient seen in ED Patient appears comfortable, in no distress. Skin is notable for excoriations on both legs. The right leg is more swollen than the left. Joints are without any effusion. Abdomen is soft, benign, no rebound or rigidity. No organomegaly. Bowel sounds present. Heart regular, no gallop, rub or JVD. Peripheral pulses present bilaterally. Lungs are diminished but clear to auscultation, no rales, ronchi or wheezes. HENT normal Neurological: Patient is awake and oriented x2, knows that she is in the hospital but does not know the month or the year. Cannot provide any meaningfulhistory of present illness. Moves all 4 extremities with no motor deficit. Pupils reactive bilaterally. Psych: affect is normal. EKG labs and available imaging reviewed Assessment and plan 1. Urinary tract infection and sepsis. Acute metabolic encephalopathy due to sepsis. 2. ARTURO. Admit patient to the hospital. Continue ceftriaxone IV, follow urine and blood cultures and adjust antibiotics accordingly. Old cultures reviewed. IV fluid hydration Monitor renal function electrolytes. PT OT DVT prophylaxis heparin 3. Bilateral lower extremity edema, right more than left. Duplex ultrasound legs will be obtained Continue treatment for chronic medical comorbidities with home regimen COPD Nephrolithiasis Sleep apnea Nephrolithiasis Pulm hypertension GERD Hypertension Dyslipidemia [facility] Medical History (Updated 08/17/23 @ 19:01 by Maury Morrissey DO) Arthritis COPD (chronic obstructive pulmonary disease) Depression Diverticulitis GERD (gastroesophageal reflux disease) HLD (hyperlipidemia) HTN (hypertension) Intertrochanteric fracture of left hip Aug 2020 Kidney stone Pulmonary HTN Sleep apnea Umbilical hernia Surgical History History of back surgery History of colostomy History of colostomy reversal Hx of heart artery stent Family History Mother Bone cancer Sister Cancer Father Heart problem Social History Smoking Status: Former smoker Tobacco Type: cigarettes Substance Use Type: None Social History Comments: unknown, patient confused and alone Meds Medications and Allergies Allergies aspirin Adverse Reaction (Verified 07/10/23 09:34) Vomiting Home Medications acetaminophen 325 mg tablet 650 mg PO Q4H PRN Pain Scale 1 - 5 #0 tabs 09/21/20 [Rx Confirmed 08/17/23] alendronate 70 mg tablet 70 mg PO QWEEK 30 days #30 tabs 09/21/20 [Rx Confirmed 08/17/23] atorvastatin 40 mg tablet 40 mg PO QPM 30 days #30 tabs 09/21/20 [Rx Confirmed 08/17/23] bupropion HCl 300 mg 24 hr tablet, extended release 300 mg PO QAM 30 days #30 tabs 09/21/20 [Rx Confirmed 08/17/23] cholecalciferol (vitamin D3) 25 mcg (1,000 unit) tablet 2,000 unit PO DAILY 30 days #30 tabs 09/21/20 [Rx Confirmed 08/17/23] ipratropium 0.5 mg-albuterol 3 mg (2.5 mg base)/3 mL nebulization soln 3 ml inhalation BID 3 days #250 mL 09/21/20 [Rx Confirmed 08/17/23] metoprolol succinate 50 mg tablet,extended release 24 hr 50 mg PO DAILY 30 days #30 tabs 09/21/20 [Rx Confirmed 08/17/23] pantoprazole 40 mg tablet,delayed release (Protonix) 40 mg PO DAILY 30 days #30 tabs 09/21/20 [Rx Confirmed 08/17/23] paroxetine HCl 40 mg tablet (Paxil) 40 mg PO QAM 30 days #30 tabs 09/21/20 [Rx Confirmed 08/17/23] pregabalin 75 mg capsule 75 mg PO BID 30 days #60 caps 09/21/20 [Rx Confirmed 08/17/23] albuterol sulfate 90 mcg/actuation aerosol inhaler 2 inh inhalation Q6H PRN bronchospasm 7 days #8 grams 05/31/22 [Rx Confirmed 08/17/23] triamcinolone acetonide 0.1 % topical cream 1 applic topical BID 12/26/22 [History Confirmed 08/17/23] clopidogrel 75 mg tablet 75 mg PO DAILY #0 tabs 12/31/22 [Rx Confirmed 08/17/23] fluticasone fur. 100 mcg-umeclid 62.5 mcg-vilant 25 mcg inhalat.powder (Trelegy Ellipta) 1 inh inhalation DAILY 07/10/23 [History Confirmed 08/17/23] lisinopril 5 mg tablet 5 mg PO DAILY 07/10/23 [History Confirmed 08/17/23] nystatin 100,000 unit/gram topical powder (Nystop) 1 applic topical BID 07/10/23[History Confirmed 08/17/23] melatonin 3 mg tablet 3 mg PO HS PRN Sleep 07/11/23 [History Confirmed 08/17/23] prednisone 10 mg tablet 20 mg PO DAILY 6 days #12 tabs 07/14/23 [Rx Confirmed 08/17/23] furosemide 40 mg tablet 60 mg PO DAILY 08/17/23 [History Confirmed 08/17/23] Exam Physical Exam Vital Signs: Temp Pulse Resp BP Pulse Ox O2 Del Method 97.4 F L 81 18 119/66 94 L Room Air 08/17/23 16:09 08/17/23 18:05 08/17/23 18:05 08/17/23 18:05 08/17/23 18:05 08/17/23 18:05 Results Lab Results Labs: Laboratory Last Values Corrected WBC 29.3 X10E3/uL (3.8-11.6) H 08/17/23 16:05 Uncorrected WBC Count 29.3 x10E3/uL (3.8-11.6) H 08/17/23 16:05 RBC 4.39 X10E6/uL (3.60-5.00) 08/17/23 16:05 Hgb 12.0 g/dL (11.8-15.4) 08/17/23 16:05 Hct 37.9 % (34.0-46.4) 08/17/23 16:05 MCV 86.4 fl (80-100) 08/17/23 16:05 MCH 27.3 pg (24.7-34.3) 08/17/23 16:05 MCHC 31.6 g/dL (32.0-35.0) L 08/17/23 16:05 RDW 17.6 % (11.9-15.3) H 08/17/23 16:05 Plt Count 298 x10E3/uL (150-450) 08/17/23 16:05 MPV 8.8 fl (6.3-10.7) 08/17/23 16:05 Neut % (Auto) 86.5 % (.) 08/17/23 16:05 Lymph % (Auto) 7.8 % (.) 08/17/23 16:05 [place] % (Auto) 5.5 % (.) 08/17/23 16:05 Eos % (Auto) 0.0 % (.) 08/17/23 16:05 Baso % (Auto) 0.2 % (.) 08/17/23 16:05 Nucleat RBC Rel Count 0.1 /100 WBC (0-0.5) 08/17/23 16:05 Neut # (Auto) 25.4 x10E3/uL (1.8-7.7) H 08/17/23 16:05 Lymph # (Auto) 2.3 x10E3/uL (1.00-4.8) 08/17/23 16:05 [place] # (Auto) 1.6 x10E3/uL (0.0-0.8) H 08/17/23 16:05 Eos # (Auto) 0.0 x10E3/uL (0.0-0.45) 08/17/23 16:05 Baso # (Auto) 0.0 x10E3/uL (0.0-0.2) 08/17/23 16:05 Monocyte Dist Width 23.25 % (0.00-20.00) H 08/17/23 16:05 Platelet Estimate Normal (Normal) 08/17/23 16:05 Plt Morphology Comment Normal (Normal) 08/17/23 16:05 RBC Morphology N/A 08/17/23 16:05 Polychromasia Slight 08/17/23 16:05 Hypochromasia Slight 08/17/23 16:05 Anisocytosis Moderate 08/17/23 16:05 PT 12.6 Seconds (9.0-12.9) 08/17/23 16:05 INR 1.1 08/17/23 16:05 APTT 26.3 Seconds (25.1-36.5) 08/17/23 16:05 PHA Creatinine Clear 10.00 08/17/23 16:05 Sodium 143 mmol/L (136-145) 08/17/23 16:05 Potassium 4.5 mmol/L (3.5-5.1) 08/17/23 16:05 Chloride 97 mmol/L (98-107) L 08/17/23 16:05 Carbon Dioxide 27.3 mmol/L (21.0-31.0) 08/17/23 16:05 Anion Gap 23.2 mEq/L (6.0-15.0) H 08/17/23 16:05 BUN 92 mg/dL (7-25) H 08/17/23 16:05 Creatinine 4.44 mg/dL (0.60-1.20) H 08/17/23 16:05 Est GFR (CKD-EPI) 9.700 mL/Min 08/17/23 16:05 Glucose 79 mg/dL (70-100) 08/17/23 16:05 Lactic Acid 1.1 mmol/L (0.5-2.2) 08/17/23 18:49 Calcium 9.1 mg/dL (8.6-10.3) 08/17/23 16:05 Total Bilirubin 0.6 mg/dl (0.3-1.0) 08/17/23 16:05 Direct Bilirubin 0.20 mg/dL (0.03-0.18) H 08/17/23 16:05 Indirect Bilirubin 0.4 mg/dL 08/17/23 16:05 AST 23 U/L (13-39) 08/17/23 16:05 ALT 24 U/L (7-52) 08/17/23 16:05 Alkaline Phosphatase 64 U/L (34-104) 08/17/23 16:05 Total Creatine Kinase 87 U/L (30-223) 08/17/23 16:05 Troponin I High Sens 38.1 pg/mL (0.0-15.0) H 08/17/23 16:05 B-Natriuretic Peptide 68.0 pg/mL (5-100) 08/17/23 16:05 Total Protein 7.1 gm/dL (6.4-8.9) 08/17/23 16:05 Albumin 3.4 gm/dL (3.5-5.7) L 08/17/23 16:05 Globulin 3.7 gm/dL 08/17/23 16:05 Albumin/Globulin Ratio 0.9 08/17/23 16:05 Assessment & Plan IP vs OBS Justification Based on differential dx, clinical care plan, and risk of adverse events, if untreated, in my clinical judgement this patient requires an acute care setting as: INPATIENT because of an expectation of an over 2 midnight stay. Estimated length of stay (# of days): 3 Documented By: Jesus Alberto Aquino MD 08/17/231945 Signed By: <Electronically signed by Jesus Alberto Aquino MD> 08/17/231949 [facility] Work Phone: [phone]) 906-602509-17-2023 Discharge summary Author Jolanta Mckenzie [facility] July 14, 2023 11:16am Note Date/Time July 14, 2023 11:16am [facility] [address] [place] [address] Discharge Summary Signed Patient: Gera Perdue MR#: [id number] : 1945 Acct:[id number] Age/Sex: 77 / F Adm Date: 3 Loc: Room: [address] [place] [address]: Jolanta Mckenzie MD Copies to: DO Jolanta Zambrano MD~ Providers Date of Discharge: 07/14/23 Discharging Provider: Jolanta Mckenzie Primary Care Provider: Gustavo Salas Consults: 07/10/23 13:52 Consult to Occupational Therapy Routine Consult to Physical Therapy Routine Discharge Diagnosis (1) Fall: (2) Acute exacerbation of chronic obstructive pulmonary disease: (3) CAD (coronary artery disease): (4) UTI (urinary tract infection): (5) Umbilical hernia: Final Diagnosis Final Discharge Diagnosis: As above Summary Hospital Course Hospital course: Patient is a pleasant 77-year female with past medical history of coronary disease status post PCI, COPD, hypertension and other medical comorbidities. Presented to ER with complaint of generalized weakness and a fall leading to laceration on the left periorbital area. In the ER she was found to have cystitis with acute kidney injury. Patient was admitted started on IV antibiotic along with IV steroids for COPD exacerbation. Renal function is improved and Lasix has been resumed she was initially placed on hold. She did receive gentle hydration. Urine culture came back growing Proteus mirabilis which is pansensitive. No growth on blood cultures and sputum culture noted. While in the hospital patient complained of significant abdominal pain with worsening leukocytosis. She does have prior history of abdominal surgery and stat CT abdomen/pelvis was obtained was negative for acute abnormality. Noted to have multiple ventral hernias without any signs of obstruction. Also noted to have increased colonic stool and patient did have multiple bowel movements. She denies further abdominal pain with improved breathing. Physical therapy wasconsulted with recommendation for senior living facility which patient is refusing understanding the risk of fall. Her symptoms have improved as well as weakness and will be discharged home. Condition Condition at Discharge: Stable Status at Discharge Functional status at discharge: independent ambulation Time Spent with Patient Time spent providing/coordinating discharge services (# min): 38 Diagnostic Studies Completed and Pending Studies Pending studies at discharge: 07/10/23 12:04 Blood Culture Stat Preliminary micro results at discharge 07/10/23 12:15 Blood Culture - Preliminary Blood - Right Hand No Growth 3 Days 07/10/23 12:04 Blood Culture - Preliminary Blood - Left Antecubital No Growth 3 Days Labs on day of discharge: 07/14/23 10:51: POC Glucose 80 07/14/23 06:51: POC Glucose 97 07/14/23 06:50: PHA Creatinine Clear 42.83, Sodium 143, Potassium 4.2, Chloride 110 H, Carbon Dioxide 28.1, Anion Gap 9.1, BUN 24, Creatinine 1.10, Est GFR (CKD- EPI) 51.753, Glucose 84, Calcium 8.0 L 07/14/23 06:49: Corrected WBC 19.3 H, Uncorrected WBC Count 19.3 H, RBC 4.00, Hgb 10.5 L, Hct 33.6 L, MCV 84.0, MCH 26.2, MCHC 31.2 L, RDW 22.8 H, Plt Count 238, MPV 7.9, Neut % (Auto) 69.9, Lymph % (Auto) 22.1, [place] % (Auto) 7.3, Eos % (Auto) 0.4, Baso % (Auto) 0.3, Nucleat RBC Rel Count 0.1, Neut # (Auto) 13.5 H, Lymph # (Auto) 4.3, [place] # (Auto) 1.4 H, Eos # (Auto) 0.1, Baso # (Auto) 0.1, Platelet Estimate Normal, Plt Morphology Comment Normal, RBC Morphology N/A, Polychromasia Slight, Hypochromasia Slight, Anisocytosis Marked 07/13/23 21:03: POC Glucose 200 Exam Physical Exam Vital Signs: Temp Pulse Resp BP Pulse Ox O2 Del Method 97.8 F 83 18 109/72 95 Room Air 07/14/23 08:00 07/14/23 08:41 07/14/23 08:41 07/14/23 08:00 07/14/23 08:00 07/14/23 08:00 Const Orientation: alert, awake and oriented x3 Resp Effort & Inspection: normal respiratory effort and able to speak in complete sentences Auscultation: no rales, no rhonchi and no wheezes Cardio Rate: regular rate Rhythm: regular rhythm Heart Sounds: S1 normal and S2 normal GI Palpation: soft, not firm, no guarding and nontender Neuro General: patient alert, patient awake, patient oriented x3, moves all extremities and no focal motor deficits Cranial Nerves: CN's II-XII intact bilaterally Motor: muscle tone normal throughout and strength 5/5 throughout Extrem General: no calf tenderness and edema Laterality: bilaterally Psych Appearance: grossly normal Discharge Plan Discharge Plan Activity: Ambulate as Tolerated Diet: Low-Sodium and Low-Cholesterol Prescriptions: New prednisone 10 mg Tablet 20 mg PO DAILY 6 Days Qty: 12 0RF Taper: Prednisone Taper 20 mg Daily for 3 Days and 0 Hour 10 mg Daily for 3 Days and 0 Hour Rx Instructions: 20mg daily for 3 days then 10mg daily for 3 days cephalexin 500 mg tablet 500 mg PO BID 3 Days Qty: 6 0RF Continued atorvastatin 40 mg Tablet 40 mg PO QPM 30 Days Qty: 30 0RF acetaminophen 325 mg Tablet 650 mg PO Q4H PRN (Reason: Pain Scale 1 - 5) Qty: 0 0RF metoprolol succinate 50 mg Tablet Extended Release 24 Hr 50 mg PO DAILY 30 Days Qty: 30 0RF pregabalin 75 mg Capsule 75 mg PO BID 30 Days Qty: 60 0RF alendronate 70 mg tablet 70 mg PO QWEEK 30 Days Qty: 30 0RF Patient Comments: TAKE 1 TABLET BY MOUTH 30 MINUTES BEFORE FIRST FOOD, BEVERAGE OR MEDICINE WITH PLAIN WATER ONCE A WEEK Rx Instructions: must sit up for 30min post admin pantoprazole [Protonix] 40 mg tablet,delayed release (DR/EC) 40 mg PO DAILY 30 Days Qty: 30 0RF Patient Comments: paroxetine HCl [Paxil] 40 mg tablet 40 mg PO QAM 30 Days Qty: 30 0RF Patient Comments: bupropion HCl 300 mg Tablet Extended Release 24 Hr 300 mg PO QAM 30 Days Qty: 30 0RF cholecalciferol (vitamin D3) 25 mcg (1,000 unit) Tablet 2,000 unit PO DAILY 30 Days Qty: 30 0RF ipratropium-albuterol 0.5 mg-3 mg(2.5 mg base)/3 mL Solution For Nebulization 3 ml inhalation BID 3 Days Qty: 250 0RF albuterol sulfate 90 mcg/actuation HFA aerosol inhaler 2 inh inhalation Q6H PRN (Reason: bronchospasm) 7 Days Qty: 8 0RF Rx Instructions: administer with spacer furosemide 40 mg tablet 40 mg PO DAILY Qty: 3 0RF calcium 600 mg Capsule 600 mg PO DAILY triamcinolone acetonide 0.1 % Cream 1 applic TOPICAL BID ammonium lactate 12 % Cream 1 applic TOPICAL BID calcium carbonate 500 mg calcium (1,250 mg) Tablet,Chewable 500 mg PO DAILY clopidogrel 75 mg Tablet 75 mg PO DAILY Qty: 0 0RF nystatin [Nystop] 100,000 unit/gram powder 1 applic TOPICAL BID Patient Comments: APPLY TO AFFECTED AREA(S) TOPICALLY TWICE DAILY Trelegy Ellipta 100-62.5-25 mcg Blister With Device 1 inh INHALATION DAILY lisinopril 5 mg tablet 5 mg PO DAILY Patient Comments: TAKE 1 TABLET BY MOUTH EVERY DAY melatonin 3 mg tablet 3 mg PO HS PRN (Reason: Sleep) Patient Comments: TAKE 1 TABLET BY MOUTH AT BEDTIME Documented By: Jolanta Mckenzie MD 07/14/23 1111 Signed By: <Electronically signed by Jolanta Mckenzie MD> 07/14/23 [facility] [facility] Work Phone: 1(289) 178-759209-16-2023 Progress note Author Jolanta Mckenzie [facility] July 13, 2023 1:59pm Note Date/Time July 13, 2023 10:40am [facility] [address] [place] [address] Hospitalist Progress Note Signed with Ling Patient: Gera Perdue MR#: [id number] : 1945 Acct:[id number] Age/Sex: 77 / F Adm Date: 3 Loc: Room: [address] [place] [address] Type: ADM IN Attending Dr: Jolanta Mckenzie MD Copies to: ~ ADDENDUM1 Patient was personally seen by me on the day of encounter, reviewed her history and performed dai elements of exam and formulated the plan of care and confirmedthe resident/interns note below. Patient denies having abdominal pain and had a bowel movement yesterday. CT scan did not show any acute abnormality. Continues to have leukocytosis but patient also on steroid. Discussed regarding senior living facility she has not decided yet. Give 1 dose of IV Lasix and resume oral Lasix from tomorrow. Addendum Documented By: Jolanta Mckenzie MD 07/13/23 9196 Addendum Signed By: <Electronically signed by Jolanta Mckenzie MD> 07/13/23 1846 Date of Service: 07/13/2023 Subjective Subjective Narrative: Ms. Predue was examined resting comfortably seated upright in room chair this morning she is pleasant alert and oriented x3. She states she was able to eat and sleep just fine and attests to improvement of generalized abdominal tenderness/discomfort from yesterday. Patient mentation has improved, is more interactive and was able to provide more detailed ROS. She attests to resolution of right eyelid lag as well. She denies recent fever, chills, chest pain, headache or dizziness however mentions having dysuria with increased frequency today, currently p.o on IVF. Also noted to have extensive excoriated lesions on both lower extremities with scabs in various stages patient mentionedhaving lot of fleas in her trailer leading to fleabites. On examination patient noted to have continued wheezing and appears tachypnea on minimal exertion. Exam Physical Exam Vital Signs: Temp Pulse Resp BP Pulse Ox O2 Del Method 97.5 F L 87 18 139/83 95 Room Air 07/13/23 08:00 07/13/23 08:00 07/13/23 08:00 07/13/23 08:00 07/13/23 08:00 07/13/23 08:00 Const General: cooperative Orientation: alert and awake Other: Does not appear to be a good historian. Answering appropriately. Appears to bein poor hygienic condition HEENT Head: normocephalic and atraumatic Mouth: oral mucosae normal Teeth and gingiva: other (No teeth) Eyes General: appearance normal, both eyes and all related structures Visual Rodriguez: normal visual rodriguez by confrontation Alignment and Position: alignment normal Periorbital: periorbital findings normal Eyelids: eyelids normal Conjunctivae: conjunctivae normal Sclera: sclerae normal Pupils: PERRL EOM: EOM intact bilaterally and No nystagmus Neck Neck: normal visual inspection and full ROM Resp Effort & Inspection: normal respiratory effort and tachypneic Auscultation: no rales, no rhonchi and wheezes expiratory wheezes, lower bilaterally and upper bilaterally Cardio Rate: regular rate Rhythm: regular rhythm Heart Sounds: S1 normal and S2 normal GI Palpation: soft, not firm, no guarding, mass (Left of midline, LLQ, firm, 8 cm x4 cm) and nontender Auscultation: normal bowel sounds Neuro General: patient alert, patient awake, patient oriented x3, moves all extremities and no focal motor deficits Cranial Nerves: CN's II-XII intact bilaterally, PERRL, accomodation normal, ableto smile, able to blink, facial strength normal and hearing normal Motor: muscle tone normal throughout and strength 5/5 throughout Extrem General: edema Laterality: bilaterally Severity: 1+ Objective Lab Results 07/13/23 06:37 07/13/23 06:37 Microbiology Results Microbiology 07/10/23 12:15 Blood - Right Hand Blood Culture - Preliminary No Growth 2 Days 07/10/23 12:04 Blood - Left Antecubital Blood Culture - Preliminary No Growth 2 Days 07/10/23 15:00 Sputum - Expectorated Aerobic Culture - Final 07/10/23 15:00 Sputum - Expectorated Gram Stain - Final 07/10/23 08:44 Urine - Clean-Voided Midstream Urine Culture - Final Proteus mirabilis Meds Allergies and Active Meds Allergies aspirin Adverse Reaction (Verified 07/10/23 09:34) Vomiting Active Meds: Active Medications Generic Name Dose Route Start Last Admin Trade Name Freq PRN Reason Stop Dose Admin Acetaminophen 1,000 mg 07/10/23 13:51 07/12/23 20:24 Acetaminophen 500 Mg Tablet PO 07/09/24 13:50 1,000 mg Q6HR PRN Administration Pain Scale 1 - 3 or fever Albuterol 2.5 mg 07/10/23 13:51 Albuterol Neb 2.5 Mg/3 Ml Vial.Neb INHALATION 07/09/24 13:50 Q3H PRN Shortness Of Breath Albuterol/Ipratropium 3 ml 07/10/23 16:00 07/13/23 07:38 Ipratropium/Albuterol 0.5-3 Mg 3 Ml Ampul.Neb INHALATION 07/09/24 15:59 3 ml QID.RESP JERILYN Administration Atorvastatin Calcium 40 mg 07/10/23 21:00 07/12/23 20:25 Atorvastatin 40 Mg Tablet PO 07/09/24 20:59 40 mg QPM JERILYN Administration Bupropion HCl 300 mg 07/11/23 09:00 07/13/23 09:37 Bupropion 300 Mg Tab.Er.24h PO 07/10/24 08:59 300 mg QAM JERILYN Administration Clopidogrel Bisulfate 75 mg 07/11/23 09:00 07/13/23 09:37 Clopidogrel Bisulfate 75 Mg Tablet PO 07/10/24 08:59 75 mg DAILY JERILYN Administration Doxycycline Hyclate 100 mg 07/10/23 21:00 07/13/23 09:37 Doxycycline Hyclate 100 Mg Tablet PO 07/14/23 21:01 100 mg BID JERILYN Administration Heparin Sodium (Porcine) 5,000 unit 07/10/23 14:00 07/13/23 06:11 Heparin 5,000 Unit/Ml Vial SUBCUT 07/09/24 13:59 5,000 unit Q8HR JERILYN Administration Ceftriaxone Sodium 1 gm in 50 mls @ 100 mls/hr 07/11/23 11:00 07/12/23 10:05 Rocephin IV 100 mls/hr Q24H JERILYN Administration Lisinopril 5 mg 07/13/23 09:00 07/13/23 09:37 Lisinopril 5 Mg Tablet PO 07/12/24 08:59 5 mg DAILY JERILYN Administration Melatonin 3 mg 07/11/23 20:40 07/12/23 21:34 Melatonin 3 Mg Tablet PO 07/10/24 21:59 3 mg QHS PRN Administration Sleep Metoprolol Succinate 50 mg 07/13/23 09:00 07/13/23 09:37 Metoprolol Succinate 50 Mg Tab.Er.24h PO 07/12/24 08:59 50 mg DAILY JERILYN Administration Pantoprazole Sodium 40 mg 07/11/23 09:00 07/13/23 09:37 Pantoprazole 40 Mg Tablet.Dr PO 07/10/24 08:59 40 mg DAILY JERILYN Administration Paroxetine HCl 40 mg 07/11/23 09:00 07/13/23 09:38 Paroxetine 20 Mg Tablet PO 07/10/24 08:59 40 mg QAM JERILYN Administration Prednisone 40 mg 07/13/23 09:00 07/13/23 09:38 Prednisone 10 Mg Tablet PO 07/22/23 08:59 40 mg DAILY JERILYN Administration Taper Pregabalin 75 mg 07/10/23 21:00 07/13/23 09:37 Pregabalin 75 Mg Capsule PO 01/06/24 20:59 75 mg BID JERILYN Administration Sodium Chloride 0 ml 07/10/23 09:28 07/11/23 22:02 Sodium Chloride 0.9 % 10 Ml Syringe IV-PUSH 07/09/24 09:27 10 ml PRN PRN Administration Flush Tramadol HCl 50 mg 07/10/23 13:51 07/12/23 15:25 Tramadol 50 Mg Tablet PO 01/06/24 13:50 50 mg Q6H PRN Administration Pain Scale 4 - 7 A&P - Hospitalist Assessment/Plan (1) Fall: (2) Acute exacerbation of chronic obstructive pulmonary disease: (3) CAD (coronary artery disease): (4) UTI (urinary tract infection): (5) Umbilical hernia: Plan Patient brought to the emergency room with generalized weakness and a fall. Noted to have UTI with COPD exacerbation and blood pressure on the lower side. Creatinine improved and will be admitted for further management of respiratory symptoms. Now resolved flank and abdominal pain with generalized discomfort. She is eating, drinking and voiding fine comfortable/pleasant overall. Patient is baseline tachypneic with shortness of breath on minimal exertion however saturates fine. CT abdomen pelvis with contrast showed mild bibasilar parenchymal changes and trace amount of pleural fluid on left, will discontinue IVF, continue antimicrobial therapy and diurese IVP Lasix 20 mg x1. Patient is afebrile, mildly hypertensive 139/83 pulse 87. Leukocytes 21.7 (21.9) today most likely from steroids. On exam audible expiratory wheeze. There is palpable mass left of midline with bowel sounds. Continue to hold lisinopril and Lasix for 1 more day. Renal function improved. Oral hydration. We will continue on decreased dose of beta-marylu. Continue steroids and bronchodilators for COPD exacerbation. Continue ceftriaxone and doxycycline cultured Proteus Mirabilis sensitive to all. Sputum culture growing moderate normal respiratory kimberly. No growth on blood cultures so far Consult PT/OT. Continue other home medications including Plavix. DVT prophylaxis. CT 07/12 moderate atherosclerotic disease, no bowel or urinary tract obstruction,left renal cortical scarring, multiple ventral hernias with largest at the left lower abdomen containing nondistended small bowel and colon with increased colonstool. CT abdomen pelvis performed December 2022 indicative of prior cholecystectomy with presumed surgical anastomosis involving rectosigmoid region with left paramidline ventral hernia/prior ostomy site. Documented By: Bhavesh Cristobal MD, RES 07/13/23 102 3 Signed By: <Electronically signed by MD SEAN Cristobal> 07/13/23 1040 <Electronically signed by Jolanta Mckenzie MD> 07/13/[address] [facility] Work Phone: 1(292) 462-589509-15-2023 Progress note Author Jolanta Mckenzie [facility] July 12, 2023 3:00pm Note Date/Time July 12, 2023 2:16pm [facility] [address] [place] [address] Hospitalist Progress Note Signed with Ling Patient: Gera Perdue MR#: [id number] : 1945 Acct:[id number] Age/Sex: 77 / F Adm Date: 3 Loc: Room: [address] [place] [address] Type: ADM IN Attending Dr: Jolanta Mckenzie MD Copies to: ~ ADDENDUM1 Patient was personally seen by me on the day of encounter, reviewed her history and performed dai elements of exam and formulated the plan of care and confirmedthe resident/interns note below. Morning labs showing worsening leukocytosis and given her presentation of UTI with significant abdominal discomfort and prior history of abdominal surgery will obtain CT abdomen/pelvis to further evaluate. Renal function has improved and continue IV hydration. Continue to hold Lasix and resume lisinopril due to improvement in renal function. Increase dose of metoprolol. Continue Plavix, statin and bronchodilators. Heparin for DVT prophylaxis. Respiratory status isimproved and switch to oral prednisone. PT recommended senior living facility which patient is refusing with plan to go home with home health care. Addendum Documented By: Jolanta Mckenzie MD 07/12/23 1500 Addendum Signed By: <Electronically signed by Jolanta Mckenzie MD> 07/12/23 1500 Date of Service: 07/12/2023 Subjective Subjective Narrative: Ms. Perdue was examined resting comfortably bedside this morning she is pleasant alert and oriented x3. She states she was able to eat and sleep just fine and attests to some improvement of generalized abdominal tenderness/discomfort from yesterday. Patient mentation has improved somewhat and was able to providemore detailed ROS and does not require multiple prompts to complete physical exam compared to yesterday. She attests to improvement of right eyelid lag as well. She denies recent infection, fever, chills, chest pain, headache or dizziness however mentions having dysuria with increased frequency today, currently p.o on IVF. Also noted to have extensive excoriated lesions on both lower extremities with scabs in various stages patient mentioned having lot of fleas in her trailer leading to fleabites. On examination patient noted to have improved wheezing and appears tachypnea. Exam Physical Exam Vital Signs: Temp Pulse Resp BP Pulse Ox O2 Del Method 97.8 F 92 H 20 167/79 H 95 Room Air 07/12/23 11:13 07/12/23 12:17 07/12/23 12:17 07/12/23 11:13 07/12/23 11:13 07/12/23 11:13 Const General: cooperative Orientation: alert and awake Other: Does not appear to be a good historian. Answering appropriately. Appears to bein poor hygienic condition HEENT Head: normocephalic and atraumatic Mouth: oral mucosae normal Teeth and gingiva: other (No teeth) Eyes General: appearance normal, both eyes and all related structures Visual Rodriguez: normal visual rodriguez by confrontation Alignment and Position: alignment normal Periorbital: periorbital findings normal Eyelids: eyelids normal Conjunctivae: conjunctivae normal Sclera: sclerae normal Pupils: PERRL EOM: EOM intact bilaterally and No nystagmus Neck Neck: normal visual inspection and full ROM Resp Effort & Inspection: normal respiratory effort and tachypneic Auscultation: no rales, no rhonchi and wheezes expiratory wheezes Cardio Rate: regular rate Rhythm: regular rhythm Heart Sounds: S1 normal and S2 normal GI Palpation: soft, not firm, no guarding, mass (Left of midline, LLQ, firm, 8 cm x4 cm) and nontender Auscultation: normal bowel sounds Neuro General: patient alert, patient awake, patient oriented x3, moves all extremities and no focal motor deficits Cranial Nerves: CN's II-XII intact bilaterally, PERRL, accomodation normal, ableto smile, able to blink, facial strength normal and hearing normal Motor: muscle tone normal throughout and strength 5/5 throughout Extrem General: edema Laterality: bilaterally Severity: 1+ Objective Lab Results 07/12/23 07:16 07/12/23 08:53 Microbiology Results Microbiology 07/10/23 12:15 Blood - Right Hand Blood Culture - Preliminary No Growth 2 Days 07/10/23 12:04 Blood - Left Antecubital Blood Culture - Preliminary No Growth 2 Days 07/10/23 15:00 Sputum - Expectorated Aerobic Culture - Final 07/10/23 15:00 Sputum - Expectorated Gram Stain - Final 07/10/23 08:44 Urine - Clean-Voided Midstream Urine Culture - Final Proteus mirabilis Meds Allergies and Active Meds Allergies aspirin Adverse Reaction (Verified 07/10/23 09:34) Vomiting Active Meds: Active Medications Generic Name Dose Route Start Last Admin Trade Name Freq PRN Reason Stop Dose Admin Acetaminophen 1,000 mg 07/10/23 13:51 Acetaminophen 500 Mg Tablet PO 07/09/24 13:50 Q6HR PRN Pain Scale 1 - 3 or fever Albuterol 2.5 mg 07/10/23 13:51 Albuterol Neb 2.5 Mg/3 Ml Vial.Neb INHALATION 07/09/24 13:50 Q3H PRN Shortness Of Breath Albuterol/Ipratropium 3 ml 07/10/23 16:00 07/12/23 12:17 Ipratropium/Albuterol 0.5-3 Mg 3 Ml Ampul.Neb INHALATION 07/09/24 15:59 3 ml QID.RESP JREILYN Administration Atorvastatin Calcium 40 mg 07/10/23 21:00 07/11/23 20:16 Atorvastatin 40 Mg Tablet PO 07/09/24 20:59 40 mg QPM JERILYN Administration Bupropion HCl 300 mg 07/11/23 09:00 07/12/23 08:15 Bupropion 300 Mg Tab.Er.24h PO 07/10/24 08:59 300 mg QAM JERILYN Administration Clopidogrel Bisulfate 75 mg 07/11/23 09:00 07/12/23 08:15 Clopidogrel Bisulfate 75 Mg Tablet PO 07/10/24 08:59 75 mg DAILY JERILYN Administration Doxycycline Hyclate 100 mg 07/10/23 21:00 07/12/23 08:15 Doxycycline Hyclate 100 Mg Tablet PO 07/14/23 21:01 100 mg BID JERILYN Administration Heparin Sodium (Porcine) 5,000 unit 07/10/23 14:00 07/12/23 06:09 Heparin 5,000 Unit/Ml Vial SUBCUT 07/09/24 13:59 5,000 unit Q8HR JERILYN Administration Sodium Chloride 1,000 mls @ 75 mls/hr 07/10/23 14:00 07/12/23 10:04 0.9% Sodium Chloride 1,000 Ml IV 07/09/24 13:59 75 mls/hr .[id number] JERILYN Administration Ceftriaxone Sodium 1 gm in 50 mls @ 100 mls/hr 07/11/23 11:00 07/12/23 10:05 Rocephin IV 100 mls/hr Q24H JERILYN Administration Melatonin 3 mg 07/11/23 20:40 07/11/23 21:59 Melatonin 3 Mg Tablet PO 07/10/24 21:59 3 mg QHS PRN Administration Sleep Metoprolol Succinate 25 mg 07/12/23 09:00 07/12/23 08:15 Metoprolol Succinate 25 Mg Tab.Er.24h PO 07/11/24 08:59 25 mg DAILY JERILYN Administration Pantoprazole Sodium 40 mg 07/11/23 09:00 07/12/23 08:15 Pantoprazole 40 Mg Tablet.Dr PO 07/10/24 08:59 40 mg DAILY JERILYN Administration Paroxetine HCl 40 mg 07/11/23 09:00 07/12/23 08:15 Paroxetine 20 Mg Tablet PO 07/10/24 08:59 40 mg QAM JERILYN Administration Prednisone 40 mg 07/13/23 09:00 Prednisone 10 Mg Tablet PO 07/22/23 08:59 DAILY JERILYN Taper Pregabalin 75 mg 07/10/23 21:00 07/12/23 08:15 Pregabalin 75 Mg Capsule PO 01/06/24 20:59 75 mg BID JERILYN Administration Sodium Chloride 0 ml 07/10/23 09:28 07/11/23 22:02 Sodium Chloride 0.9 % 10 Ml Syringe IV-PUSH 07/09/24 09:27 10 ml PRN PRN Administration Flush Tramadol HCl 50 mg 07/10/23 13:51 07/11/23 20:16 Tramadol 50 Mg Tablet PO 01/06/24 13:50 50 mg Q6H PRN Administration Pain Scale 4 - 7 A&P - Hospitalist Assessment/Plan (1) Fall: (2) Acute exacerbation of chronic obstructive pulmonary disease: (3) CAD (coronary artery disease): (4) UTI (urinary tract infection): (5) Umbilical hernia: Plan Patient brought to the emergency room with generalized weakness and a fall. Noted to have UTI with COPD exacerbation and blood pressure on the lower side. Her creatinine is also elevated and will be admitted for further management. Patient complains of generalized flank and abdominal pain with generalized discomfort. She is eating, drinking and voiding fine. Currently comfortable/pleasant. Leukocytes up 21.9 (15.7) today patient is afebrile, hypertensive 167/79 pulse 97. On exam there is palpable mass left of midline. Continue to hold lisinopril and Lasix for 1 more day. Renal function improving. Gentle hydration. We will start on decreased dose of beta-marylu. Continue steroids and bronchodilators for COPD exacerbation. Continue ceftriaxone and doxycycline cultured Proteus Mirabilis sensitive to all. Sputum culture growing moderate normal respiratory kimberly. No growth on bloodcultures so far Consult PT/OT. Continue other home medications including Plavix. DVT prophylaxis. CT abdomen pelvis performed December 2022 indicative of prior cholecystectomy with presumed surgical anastomosis involving rectosigmoid region with left paramidline ventral hernia/prior ostomy site. Documented By: Bhavesh Cristobal MD, RES 07/12/23 135 3 Signed By: <Electronically signed by RES Bhavesh Cristobal> 07/12/23 1416 <Electronically signed by Jolanta Mckenzie MD> 07/12/[address] [facility] Work Phone: 1(167) 429-767809-14-2023 Progress note Author Jolanta Mckenzie [facility] July 11, 2023 12:47pm Note Date/Time July 11, 2023 10:10am [facility] [address] [place] [address] Hospitalist Progress Note Signed with Ling Patient: Gera Perdue MR#: [id number] : 1945 Acct:[id number] Age/Sex: 77 / F Adm Date: 3 Loc: 3T Room: 1T2323-4 Type: ADM IN Attending Dr: Jolanta Mckenzie MD Copies to: ~ ADDENDUM1 Patient was personally seen by me on the day of encounter, reviewed her history and performed dai elements of exam and formulated the plan of care and confirmedthe resident/interns note below. Addendum Documented By: Jolanta Mckenzie MD 07/11/231246 Addendum Signed By: <Electronically signed by Jolanta Mckenzie MD> 07/11/231246 Date of Service: 07/11/2023 Subjective Subjective Narrative: Ms. Perdue was examined resting comfortably bedside this morning she is pleasant alert and oriented x3. She states she was able to eat and sleep just fine however complains of generalized abdominal tenderness/discomfort states that it resembles pain from prior cholecystectomy. She is somewhat of a poor historian tangential in nature unable to provide detailed ROS. She also complains of a right eyelid lag she states worsens when she rotates her head ipsilaterally. Patient needs multiple prompts to adhere to EOM exam. She deniesrecent infection, fever, chills, chest pain, headache or dizziness however mentions having dysuria with increased frequency. Also noted to have extensive excoriated lesions on both lower extremities with scabs patient mentioned havinglot of fleas in her trailer leading to fleabites. On examination patient noted to have improved wheezing and appears tachypnea. Exam Physical Exam Vital Signs: Temp Pulse Resp BP Pulse Ox O2 Del Method 97.9 F 81 20 147/80 H 96 Room Air 07/11/23 04:30 07/11/23 08:39 07/11/23 08:39 07/11/23 04:30 07/11/23 04:30 07/11/23 04:30 Const General: cooperative and disheveled Orientation: alert and awake Other: Does not appear to be a good historian. Answering appropriately. Appears to bein poor hygienic condition HEENT Head: normocephalic and atraumatic Mouth: oral mucosae normal Teeth and gingiva: other (No teeth) Eyes General: appearance normal, both eyes and all related structures Visual Rodriguez: normal visual rodriguez by confrontation Alignment and Position: alignment normal Periorbital: periorbital findings normal Eyelids: eyelids normal Conjunctivae: conjunctivae normal Sclera: sclerae normal Pupils: PERRL EOM: EOM intact bilaterally and No nystagmus Neck Neck: normal visual inspection and full ROM Resp Effort & Inspection: normal respiratory effort Auscultation: no rales, no rhonchi and wheezes expiratory wheezes Cardio Rate: regular rate Rhythm: regular rhythm Heart Sounds: S1 normal and S2 normal GI Palpation: soft, not firm, no guarding and nontender Auscultation: normal bowel sounds Neuro General: patient alert, patient awake, patient oriented x3, moves all extremities and no focal motor deficits Cranial Nerves: CN's II-XII intact bilaterally, PERRL, accomodation normal, ableto smile, able to blink, facial strength normal and hearing normal Motor: muscle tone normal throughout and strength 5/5 throughout Extrem General: edema Laterality: bilaterally Severity: 1+ Objective Lab Results 07/11/23 07:47 07/11/23 07:47 Meds Allergies and Active Meds Allergies aspirin Adverse Reaction (Verified 07/10/23 09:34) Vomiting Active Meds: Active Medications Generic Name Dose Route Start Last Admin Trade Name Freq PRN Reason Stop Dose Admin Acetaminophen 1,000 mg 07/10/23 13:51 Acetaminophen 500 Mg Tablet PO 07/09/24 13:50 Q6HR PRN Pain Scale 1 - 3 or fever Albuterol 2.5 mg 07/10/23 13:51 Albuterol Neb 2.5 Mg/3 Ml Vial.Neb INHALATION 07/09/24 13:50 Q3H PRN Shortness Of Breath Albuterol/Ipratropium 3 ml 07/10/23 16:00 07/11/23 08:39 Ipratropium/Albuterol 0.5-3 Mg 3 Ml Ampul.Neb INHALATION 07/09/24 15:59 3 ml QID.RESP JERILYN Administration Atorvastatin Calcium 40 mg 07/10/23 21:00 07/10/23 21:47 Atorvastatin 40 Mg Tablet PO 07/09/24 20:59 40 mg QPM JERILYN Administration Bupropion HCl 300 mg 07/11/23 09:00 Bupropion 300 Mg Tab.Er.24h PO 07/10/24 08:59 QAM JERILYN Clopidogrel Bisulfate 75 mg 07/11/23 09:00 Clopidogrel Bisulfate 75 Mg Tablet PO 07/10/24 08:59 DAILY JERILYN Doxycycline Hyclate 100 mg 07/10/23 21:00 07/10/23 21:47 Doxycycline Hyclate 100 Mg Tablet PO 100 mg BID JERILYN Administration Heparin Sodium (Porcine) 5,000 unit 07/10/23 14:00 07/11/23 05:56 Heparin 5,000 Unit/Ml Vial SUBCUT 07/09/24 13:59 5,000 unit Q8HR JERILYN Administration Sodium Chloride 1,000 mls @ 75 mls/hr 07/10/23 14:00 07/11/23 05:57 0.9% Sodium Chloride 1,000 Ml IV 07/09/24 13:59 75 mls/hr .[id number] JERILYN Administration Ceftriaxone Sodium 1 gm in 50 mls @ 100 mls/hr 07/11/23 11:00 Rocephin IV Q24H JERILYN Methylprednisolone Sodium Succinate 40 mg 07/10/23 14:00 07/11/23 05:56 Methylprednisolone Sod Succ 40 Mg/Ml Vial IV-PUSH 07/09/24 13:59 40 mg Q8HR JERILYN Administration Pantoprazole Sodium 40 mg 07/11/23 09:00 Pantoprazole 40 Mg Tablet. PO 07/10/24 08:59 DAILY JERILYN Paroxetine HCl 40 mg 07/11/23 09:00 Paroxetine 20 Mg Tablet PO 07/10/24 08:59 QAM JERILYN Pregabalin 75 mg 07/10/23 21:00 07/10/23 21:47 Pregabalin 75 Mg Capsule PO 01/06/24 20:59 75 mg BID JERILYN Administration Sodium Chloride 0 ml 07/10/23 09:28 Sodium Chloride 0.9 % 10 Ml Syringe IV-PUSH 07/09/24 09:27 PRN PRN Flush Sterile Water 1 ml 07/10/23 13:51 07/10/23 21:47 Water For Injection,Sterile 10 Ml Vial INJECTION 07/09/24 13:50 1 ml PRN PRN Administration Reconstitute methylPREDNISolone sod succ Tramadol HCl 50 mg 07/10/23 13:51 07/10/23 15:02 Tramadol 50 Mg Tablet PO 01/06/24 13:50 50 mg Q6H PRN Administration Pain Scale 4 - 7 A&P - Hospitalist Assessment/Plan (1) Fall: (2) Acute exacerbation of chronic obstructive pulmonary disease: (3) CAD (coronary artery disease): (4) UTI (urinary tract infection): (5) Umbilical hernia: Plan Patient brought to the emergency room with generalized weakness and a fall. Noted to have UTI with COPD exacerbation and blood pressure on the lower side. Her creatinine is also elevated and will be admitted for further management. Hold Lasix and continue gentle hydration. Hold lisinopril as well. Start on steroids and bronchodilators for COPD exacerbation. Doxycycline obtain sputum for culture. Ceftriaxone started in the ER for UTI. Consult PT/OT. Continue other home medications including Plavix. DVT prophylaxis. Patient complains of generalized abdominal discomfort. She is eating and voiding fine. Currently comfortable/pleasant. On exam there is palpable mass left of midline. No TTP. No sign of acute abdomen. CT abdomen pelvis performed December 2022 indicative of prior cholecystectomy with presumed surgical anastomosis involving rectosigmoid region with left paramidline ventral hernia/prior ostomy site. We will consider RUQ US if symptoms persist. Urine culture growing gram-negative bacilli with pending final sensitivity. No growth on blood cultures so far. Continue ceftriaxone and doxycycline. We will start on decreased dose of beta-marylu. Continue to hold lisinopril and Lasix for 1 more day. Renal function improving. Consult PT/OT. Documented By: Bhavesh Cristobal MD, RES 07/11/23 094 9 Signed By: <Electronically signed by RES Bhavesh Cristobal> 07/11/23 1010 <Electronically signed by Jolanta Mckenzie MD> 07/11/[address] [facility] Work Phone: [phone]) 945-311809-13-2023 History and physical note Author Jolanta Mckenzie [facility] July 10, 2023 1:50pm Note Date/Time July 10, 2023 1:44pm [facility] [address] [place] [address] Hospitalist H&P Signed Patient: Gera Perdue MR#: [id number] : 1945 Acct:[id number] Age/Sex: 77 / F Adm Date: 3 Loc: Room: [address] [place] [address] Type: ADM IN Attending Dr: Jolanta Mckenzie MD Copies to: DO Jolanta Zambrano MD~ HPI DATE OF EXAMINATION: 07/10/23 CHIEF COMPLAINT: Generalized weakness and fall. HISTORY OF PRESENT ILLNESS: Patient is 77-year-old female with past medical history of coronary disease status post PCI, COPD not on home oxygen, hypertension, chronic disease stage III and CVA. Presented to ER with complaint of generalized weakness and fall earlier today. In the emergency room her labs showed WBC count of 21.3 with urine analysis suggestive of UTI. She was noted to have laceration on the left lateral periorbital area. CT C-spine showing vertebral body height loss and C7 with associated sclerosis suggesting a chronic process. CT head chest x-ray andleft hip x-ray negative for acute abnormality. On examination patient does not appear to be a good historian. She mention earlier today while cleaning in her trailer bent over her legs gave out leading to fall on her left side. She denies recent infection, fever, chills, chest pain, headache or dizziness. She did mention having dysuria with increased frequency. Also noted to have extensive excoriated lesions on both lower extremities with scabs patient mentioned having lot of fleas in her trailer leading to fleabites. In the ER noted to have blood pressure on the lower side and received 2 L normal saline bolus. On examination patient noted to have actively wheezing and appears tachypneic as well. Review of Systems Review of Systems All other systems reviewed & are negative unless noted below or in HPI [facility] Medical History Arthritis COPD (chronic obstructive pulmonary disease) Depression Diverticulitis GERD (gastroesophageal reflux disease) HLD (hyperlipidemia) HTN (hypertension) Intertrochanteric fracture of left hip Aug 2020 Kidney stone Pulmonary HTN Sleep apnea Umbilical hernia Surgical History History of back surgery History of colostomy History of colostomy reversal Hx of heart artery stent Family History Mother Bone cancer Sister Cancer Father Heart problem Social History Smoking Status: Former smoker Tobacco Type: cigarettes Substance Use Type: None Social History Comments: unknown, patient confused and alone Meds Medications and Allergies Allergies aspirin Adverse Reaction (Verified 07/10/23 09:34) Vomiting Home Medications acetaminophen 325 mg tablet 650 mg PO Q4H PRN Pain Scale 1 - 5 #0 tabs 09/21/20 [Rx Confirmed 07/10/23] alendronate 70 mg tablet 70 mg PO QWEEK 30 days #30 tabs 09/21/20 [Rx Confirmed 07/10/23] atorvastatin 40 mg tablet 40 mg PO QPM 30 days #30 tabs 09/21/20 [Rx Confirmed 07/10/23] budesonide 0.5 mg/2 mL suspension for nebulization 0.5 mg (2 mL) inhalation BID@0600,1800 30 days #100 mL 09/21/20 [Rx Confirmed 12/26/22] bupropion HCl 300 mg 24 hr tablet, extended release 300 mg PO QAM 30 days #30 tabs 09/21/20 [Rx Confirmed 07/10/23] cholecalciferol (vitamin D3) 25 mcg (1,000 unit) tablet 2,000 unit PO DAILY 30 days #30 tabs 09/21/20 [Rx Confirmed 07/10/23] ipratropium 0.5 mg-albuterol 3 mg (2.5 mg base)/3 mL nebulization soln 3 ml inhalation BID 3 days #250 mL 09/21/20 [Rx Confirmed 12/26/22] metoprolol succinate 50 mg tablet,extended release 24 hr 50 mg PO DAILY 30 days #30 tabs 09/21/20 [Rx Confirmed 07/10/23] pantoprazole 40 mg tablet,delayed release (Protonix) 40 mg PO DAILY 30 days #30 tabs 09/21/20 [Rx Confirmed 07/10/23] paroxetine HCl 40 mg tablet (Paxil) 40 mg PO QAM 30 days #30 tabs 09/21/20 [Rx Confirmed 07/10/23] pregabalin 75 mg capsule 75 mg PO BID 30 days #60 caps 09/21/20 [Rx Confirmed 07/10/23] albuterol sulfate 90 mcg/actuation aerosol inhaler 2 inh inhalation Q6H PRN bronchospasm 7 days #8 grams 05/31/22 [Rx Confirmed 07/10/23] ammonium lactate 12 % topical cream 1 applic topical BID 12/26/22 [History Confirmed 07/10/23] calcium 600 mg capsule 600 mg PO DAILY 12/26/22 [History Confirmed 07/10/23] calcium carbonate 500 mg calcium (1,250 mg) chewable tablet 500 mg PO DAILY 12/26/22 [History Confirmed 12/26/22] nystatin 100,000 unit/gram topical cream 1 applic topical BID 12/26/22 [History Confirmed 12/26/22] triamcinolone acetonide 0.1 % topical cream 1 applic topical BID 12/26/22 [History Confirmed 12/26/22] clopidogrel 75 mg tablet 75 mg PO DAILY #0 tabs 12/31/22 [Rx Confirmed 07/10/23] lisinopril 2.5 mg tablet 2.5 mg PO DAILY #0 tabs 12/31/22 [Rx Confirmed 07/10/23] furosemide 40 mg tablet 40 mg PO DAILY #3 tabs 06/17/23 [Rx Confirmed 07/10/23] Exam Physical Exam Vital Signs: Pulse Resp BP Pulse Ox O2 Del Method 72 18 107/59 L 96 Room Air 07/10/23 13:00 07/10/23 13:00 07/10/23 13:00 07/10/23 13:00 07/10/23 13:00 Const General: cooperative and disheveled Orientation: alert and awake Other: Does not appear to be a good historian. Answering appropriately. Appears to bein poor hygienic condition HEENT Other: Laceration on the left lateral eye area. Eyes Pupils: PERRL EOM: EOM intact bilaterally and No nystagmus Neck Neck: normal visual inspection and full ROM Resp Effort & Inspection: normal respiratory effort and tachypneic Auscultation: no rales, no rhonchi and wheezes expiratory wheezes Cardio Rate: regular rate Rhythm: regular rhythm Heart Sounds: S1 normal and S2 normal GI Palpation: soft, not firm, no guarding and nontender Neuro General: patient alert, patient awake, patient oriented x3, moves all extremities and no focal motor deficits Cranial Nerves: CN's II-XII intact bilaterally Motor: muscle tone normal throughout and strength 5/5 throughout Extrem General: edema Laterality: bilaterally Severity: 1+ Other: Multiple wounds on both lower extremities with scabs. No signs of active infection or bleeding. Results Lab Results Labs: Laboratory Last Values Corrected WBC 21.3 X10E3/uL (3.8-11.6) H 07/10/23 08:44 Uncorrected WBC Count 21.3 x10E3/uL (3.8-11.6) H 07/10/23 08:44 RBC 4.17 X10E6/uL (3.60-5.00) 07/10/23 08:44 Hgb 11.0 g/dL (11.8-15.4) L 07/10/23 08:44 Hct 34.4 % (34.0-46.4) 07/10/23 08:44 MCV 82.7 fl (80-100) 07/10/23 08:44 MCH 26.5 pg (24.7-34.3) 07/10/23 08:44 MCHC 32.0 g/dL (32.0-35.0) 07/10/23 08:44 RDW 22.2 % (11.9-15.3) H 07/10/23 08:44 Plt Count 250 x10E3/uL (150-450) 07/10/23 08:44 MPV 8.0 fl (6.3-10.7) 07/10/23 08:44 Neut % (Auto) 61.4 % (.) 07/10/23 08:44 Lymph % (Auto) 31.5 % (.) 07/10/23 08:44 [place] % (Auto) 6.5 % (.) 07/10/23 08:44 Eos % (Auto) 0.4 % (.) 07/10/23 08:44 Baso % (Auto) 0.2 % (.) 07/10/23 08:44 Nucleat RBC Rel Count 0.1 /100 WBC (0-0.5) 07/10/23 08:44 Neut # (Auto) 13.1 x10E3/uL (1.8-7.7) H 07/10/23 08:44 Lymph # (Auto) 6.7 x10E3/uL (1.00-4.8) H 07/10/23 08:44 [place] # (Auto) 1.4 x10E3/uL (0.0-0.8) H 07/10/23 08:44 Eos # (Auto) 0.1 x10E3/uL (0.0-0.45) 07/10/23 08:44 Baso # (Auto) 0.0 x10E3/uL (0.0-0.2) 07/10/23 08:44 Platelet Estimate Normal (Normal) 07/10/23 08:44 Plt Morphology Comment N/A 07/10/23 08:44 RBC Morphology N/A 07/10/23 08:44 Polychromasia Slight 07/10/23 08:44 Hypochromasia Slight 07/10/23 08:44 Poikilocytosis Slight 07/10/23 08:44 Anisocytosis Moderate 07/10/23 08:44 Microcytosis Moderate 07/10/23 08:44 Tear Drop Cells Slight 07/10/23 08:44 Ovalocytes Slight 07/10/23 08:44 Acanthocytes (Spur) Slight 07/10/23 08:44 PT 10.6 Seconds (9.0-12.9) 07/10/23 08:44 INR 0.9 07/10/23 08:44 PHA Creatinine Clear N/A 07/10/23 08:44 Sodium 143 mmol/L (136-145) 07/10/23 08:44 Potassium 3.9 mmol/L (3.5-5.1) 07/10/23 08:44 Chloride 105 mmol/L (98-107) 07/10/23 08:44 Carbon Dioxide 32.4 mmol/L (21.0-31.0) H 07/10/23 08:44 Anion Gap 9.5 mEq/L (6.0-15.0) 07/10/23 08:44 BUN 36 mg/dL (7-25) H 07/10/23 08:44 Creatinine 1.56 mg/dL (0.60-1.20) H 07/10/23 08:44 Est GFR (CKD-EPI) 34.030 mL/Min 07/10/23 08:44 Glucose 83 mg/dL (70-100) 07/10/23 08:44 Lactic Acid 1.6 mmol/L (0.5-2.2) 07/10/23 12:18 Calcium 8.9 mg/dL (8.6-10.3) 07/10/23 08:44 Troponin I High Sens 11.7 pg/mL (0.0-15.0) 07/10/23 08:44 B-Natriuretic Peptide 54.0 pg/mL (5-100) 07/10/23 08:44 Urine Color Yellow (Yellow) 07/10/23 08:44 Urine Appearance Cloudy (Clear) A 07/10/23 08:44 Urine pH 8.5 (5.0-9.0) 07/10/23 08:44 Ur Specific [place] 1.022 (1.001-1.030) 07/10/23 08:44 Urine Protein 30 mg/dL (Negative) H 07/10/23 08:44 Urine Glucose (UA) Normal mg/dL (Normal) 07/10/23 08:44 Urine Ketones Negative (Negative) 07/10/23 08:44 Urine Occult Blood Negative (Negative) 07/10/23 08:44 Urine Nitrite Positive (Negative) H 07/10/23 08:44 Urine Bilirubin Negative (Negative) 07/10/23 08:44 Urine Urobilinogen Normal mg/dL (Normal) 07/10/23 08:44 Ur Leukocyte Esterase 4+ (Negative) H 07/10/23 08:44 Urine RBC 3-4 /HPF (0-4) 07/10/23 08:44 Urine WBC Innumerable /HPF (0-4) H 07/10/23 08:44 Ur Squamous Epith Cells 1-2 /HPF (0-2) 07/10/23 08:44 Urine Bacteria 2+ (None Seen) H 07/10/23 08:44 Hyaline Casts 0-8 /LPF (0-8) 07/10/23 08:44 Assessment & Plan Assessment/Plan (1) Fall: (2) Acute exacerbation of chronic obstructive pulmonary disease: (3) CAD (coronary artery disease): (4) UTI (urinary tract infection): Plan Patient brought to the emergency room with generalized weakness and a fall. Noted to have UTI with COPD exacerbation and blood pressure on the lower side. Her creatinine is also elevated and will be admitted for further management. Hold Lasix and continue gentle hydration. Hold lisinopril as well. Start on steroids and bronchodilators for COPD exacerbation. Doxycycline obtain sputum for culture. Ceftriaxone started in the ER for UTI. Consult PT/OT. Continue other home medications including Plavix. DVT prophylaxis. IP vs OBS Justification Based on differential dx, clinical care plan, and risk of adverse events, if untreated, in my clinical judgement this patient requires an acute care setting as: INPATIENT because of an expectation of an over 2 midnight stay. Estimated length of stay (# of days): 2 Documented By: Jolanta Mckenzie MD 07/10/23 1340 Signed By: <Electronically signed by Jolanta Mckenzie MD> 07/10/[address] [facility] Work Phone: [phone]) 696-483503-06-2023 Discharge summary Author Jesus Alberto Aquino [facility] December 31, 2022 3:43pm Note Date/Time December 31, 2022 11:5 7am [facility] [address] [place] [address] Discharge Summary Signed Patient: Gera Perdue MR#: [id number] : 1945 Acct:[id number] Age/Sex: 77 / F Adm Date: 3 Loc: Room: [address] [place] [address]: Jesus Alberto Aquino MD Copies to: MD Gustavo Keen,DO~ Providers Date of Discharge: 12/31/22 Discharging Provider: Jesus Alberto Aquino Primary Care Provider: Gustavo Salas Consults: 12/26/22 23:41 Consult to Case Management Routine 12/26/22 23:46 Consult to Occupational Therapy Routine Consult to Physical Therapy Routine Discharge Diagnosis Final Diagnosis Final Discharge Diagnosis: Urinary tract infection with E. coli Instability and falls in the setting of the above Chronic problems Chronic moderate pulmonary hypertension due to COPD COPD Hypertension CKD stage III Cerebrovascular disease and history of TIA CAD status post PTCA and stent 2019 Obesity class II Summary Hospital Course Hospital course: Patient is a 77-year-old female, who presented to the emergency department on December 26, complaining of a fall with head trauma. Work-up identified no significant injury.Patient was admitted to the hospital for further evaluation and treatment. She does have bilateral lower extremity edema in the setting of pulmonary hypertension in the right heart failure. An echocardiogram showed RV SP of 40 to 50 mmHg. This was better than the prior level. There was evidence of urinary tract infection with E. coli. Patient received treatment with ceftriaxone. No complications occurred, and patient was discharged to senior living facility in stable condition on December 31. Time Spent with Patient Time spent providing/coordinating discharge services (# min): 40 Diagnostic Studies Completed and Pending Studies Labs on day of discharge: 12/31/22 05:22: PHA Creatinine Clear 45.60, Sodium 134 L, Potassium 4.1, Chloride 99, Carbon Dioxide 26.2, Anion Gap 12.9, BUN 18, Creatinine 0.99, Est GFR ( Amer) > 60, Est GFR (Non-Af Amer) 54, Glucose 115 H, Calcium 8.6, Phosphorus 3.5, Magnesium 1.5 L 12/31/22 05:22: Corrected WBC 13.4 H, Uncorrected WBC Count 13.4 H, RBC 3.86, Hgb 9.8 L, Hct 30.2 L, MCV 78.2 L, MCH 25.3, MCHC 32.3, RDW 15.7 H, Plt Count 447, MPV 6.6, Neut % (Auto) N/A, Lymph % (Auto) N/A, [place] % (Auto) N/A, Eos % (Auto) N/A, Baso % (Auto) N/A, Nucleat RBC Rel Count N/A, Neut # (Auto) N/A, Lymph # (Auto) N/A, [place] # (Auto) N/A, Eos # (Auto) N/A, Baso # (Auto) N/A, Lymphocytes % 8 L, Monocytes % 5, Eosinophils % 1, Basophils % 1, Segmented Neutrophils 86 H, Platelet Estimate Normal, Giant Platelets 1, Plt Morphology Comment Normal, RBC Morphology N/A, Polychromasia Slight, Hypochromasia Slight, Poikilocytosis Slight, Anisocytosis Moderate, Microcytosis Moderate, Helmet Cells Slight Exam Physical Exam Vital Signs: Temp Pulse Resp BP Pulse Ox O2 Del Method O2 Flow Rate 97.5 F L 91 H 22 114/72 93 L Nasal Cannula 1.5 12/31/22 08:00 12/31/22 09:20 12/31/22 09:20 12/31/22 08:00 12/31/22 09:23 12/31/22 09:23 12/31/22 09:23 Discharge Plan Discharge Plan Patient Disposition: [facility] Facility Activity: No Activity Restriction Diet: Regular Additional Instructions: SNF TO MANAGE: PT/OT to eval and treat Monitor VS per protocol Oxygen currently at 1.5l per NC *Wean off as tolerated Skin care TID: *theraworx protect to skin folds with redness, then apply nystatin powder Dressing change every 2 days to left ischuim stage 2 pressure injury: *clean wound with vashe, apply therahoney sheet, then polymem ag, secure with opsite Maintain high risk fall precautions Care to be managed by SNF providers Prescriptions: New clopidogrel 75 mg Tablet 75 mg PO DAILY Qty: 0 0RF nystatin [Nystop] 100,000 unit/gram Powder 1 applic topical BID 7 Days Qty: 0 0RF lisinopril 2.5 mg Tablet 2.5 mg PO DAILY Qty: 0 0RF Continued atorvastatin 40 mg Tablet 40 mg PO QPM 30 Days Qty: 30 0RF acetaminophen 325 mg Tablet 650 mg PO Q4H PRN (Reason: Pain Scale 1 - 5) Qty: 0 0RF budesonide 0.5 mg/2 mL Suspension For Nebulization 0.5 mg inhalation BID@0600,1800 30 Days Qty: 100 0RF metoprolol succinate 50 mg Tablet Extended Release 24 Hr 50 mg PO DAILY 30 Days Qty: 30 0RF pregabalin 75 mg Capsule 75 mg PO BID 30 Days Qty: 60 0RF alendronate 70 mg tablet 70 mg PO QWEEK 30 Days Qty: 30 0RF Patient Comments: TAKE 1 TABLET BY MOUTH 30 MINUTES BEFORE FIRST FOOD, BEVERAGE OR MEDICINE WITH PLAIN WATER ONCE A WEEK Rx Instructions: must sit up for 30min post admin pantoprazole [Protonix] 40 mg tablet,delayed release (DR/EC) 40 mg PO DAILY 30 Days Qty: 30 0RF Patient Comments: paroxetine HCl [Paxil] 40 mg tablet 40 mg PO QAM 30 Days Qty: 30 0RF Patient Comments: bupropion HCl 300 mg Tablet Extended Release 24 Hr 300 mg PO QAM 30 Days Qty: 30 0RF cholecalciferol (vitamin D3) 25 mcg (1,000 unit) Tablet 2,000 unit PO DAILY 30 Days Qty: 30 0RF ipratropium-albuterol 0.5 mg-3 mg(2.5 mg base)/3 mL Solution For Nebulization 3 ml inhalation BID 3 Days Qty: 250 0RF albuterol sulfate 90 mcg/actuation HFA aerosol inhaler 2 inh inhalation Q6H PRN (Reason: bronchospasm) 7 Days Qty: 8 0RF Rx Instructions: administer with spacer calcium 600 mg Capsule 600 mg PO DAILY triamcinolone acetonide 0.1 % Cream 1 applic TOPICAL BID nystatin 100,000 unit/gram Cream 1 applic TOPICAL BID ammonium lactate 12 % Cream 1 applic TOPICAL BID calcium carbonate 500 mg calcium (1,250 mg) Tablet,Chewable 500 mg PO DAILY Discontinued lisinopril 5 mg tablet 5 mg PO DAILY Patient Comments: TAKE 1 TABLET BY MOUTH EVERY DAY Documented By: Jesus Alberto Aquino MD 12/31/22 1152 Signed By: <Electronically signed by Jesus Alberto Aquino MD> 12/31/[address] [facility] Work Phone: 1(210) 227-110903-05-2023 Progress note Author Carla Hagan [facility] December 30, 2022 9:53am Note Date/Time December 30, 2022 9:53 am [facility] [address] [place] [address] Hospitalist Progress Note Signed Patient: Gera Perdue MR#: [id number] : 1945 Acct:[id number] Age/Sex: 77 / F Adm Date: 3 Loc: 4N Room: [address] [place] [address] Type: ADM IN Attending Dr: Carla Hagan MD Copies to: ~ Date of Service: 12/30/2022 Subjective Subjective Narrative: Patient is feeling well. No new symptoms. Patient stated that her pain in the left hip had resolved. No abdominal or chest pain. No cough or congestion. Noshortness of breath. Exam Physical Exam Vital Signs: Temp Pulse Resp BP Pulse Ox O2 Del Method 98.3 F 79 16 111/70 89 L Room Air 12/30/22 07:53 12/30/22 07:53 12/30/22 07:53 12/30/22 07:53 12/30/22 07:53 12/30/22 07:53 Narrative: [pt is awake and alert. oriented to place, time and person. Morbidly obese HEENT: [place] conjunctiva and NL buccal mucosa Neck: Supple, no tenderness Endocrine: No Thyromegaly. Vascular: No JVD or carotid bruit. Lymphatic: No cervical lymphadenopathy. Chest: CTA no DTP. Heart RRR, no extra sound or murmur. Abd: Soft, no tenderness, no rebound and no rigidity. Increase abd girth therefore clinically I could not exclude the possibility of intra abd mass or organomegaly. LE: No cyanosis or clubbing, no varices or edema. Neuro: A A O. Nl speech, comprehension and attention. Symmetrical motor and tone. Moderate functional impairment. Patient needs assist standing up and ambulating. She blames it on having severe osteoarthritis involving her hips, knees and ankles. []] Objective Lab Results 12/28/22 05:00 12/28/22 05:00 Microbiology Results Microbiology 12/27/22 00:44 Urine - Voided Urine Culture - Final Escherichia coli Meds Allergies and Active Meds Allergies aspirin Adverse Reaction (Verified 11/22/22 10:27) Vomiting Active Meds: Active Medications Generic Name Dose Route Start Last Admin Trade Name Freq PRN Reason Stop Dose Admin Acetaminophen 650 mg 12/26/22 23:41 12/28/22 20:54 Acetaminophen 325 Mg Tablet PO 12/26/23 23:40 650 mg Q6HR PRN Administration Pain Scale 1 - 3 or fever Albuterol 2.5 mg 12/27/22 00:12 Albuterol Neb 2.5 Mg/3 Ml Vial.Neb INHALATION 12/27/23 00:11 Q6H PRN bronchospasm Albuterol/Ipratropium 3 ml 12/28/22 09:00 12/30/22 07:36 Ipratropium/Albuterol 0.5-3 Mg 3 Ml Ampul.Neb INHALATION 12/28/23 08:59 3 ml BID JERILYN Administration Atorvastatin Calcium 40 mg 12/27/22 21:00 12/29/22 21:01 Atorvastatin 40 Mg Tablet PO 12/27/23 20:59 40 mg QPM JERILYN Administration Bupropion HCl 300 mg 12/27/22 09:00 12/30/22 08:06 Bupropion 300 Mg Tab.Er.24h PO 12/27/23 08:59 300 mg QAM JERILYN Administration Calcium Carbonate 600 mg 12/27/22 09:00 12/30/22 08:05 Calcium Carbonate 500 Mg Tablet PO 12/27/23 08:59 600 mg DAILY JERILYN Administration Clopidogrel Bisulfate 75 mg 12/27/22 09:00 12/30/22 08:05 Clopidogrel Bisulfate 75 Mg Tablet PO 12/27/23 08:59 75 mg DAILY JERILYN Administration Enoxaparin Sodium 40 mg 12/30/22 14:00 Enoxaparin 40 Mg/0.4 Ml Syringe SUBCUT 12/30/23 13:59 DAILY@1400 JERILYN Hydromorphone HCl 0.5 mg 12/27/22 03:58 12/29/22 12:30 Hydromorphone 0.5 Mg/0.5 Ml Syringe IV-PUSH 0.5 mg Q4H PRN Administration Pain Scale 8 - 10 Ceftriaxone Sodium 1 gm in 50 mls @ 100 mls/hr 12/27/22 12:30 12/29/22 13:21 Rocephin IV 100 mls/hr Q24H JERILYN Administration Magnesium Sulfate 2 gm in 50 mls @ 25 mls/hr 12/28/22 06:28 12/28/22 06:35 Magnesium Sulf 2gm-*Swfi* IV 12/28/23 06:27 25 mls/hr DAILY PRN Administration Magnesium Level < 1.5 Lisinopril 2.5 mg 12/30/22 09:00 12/30/22 08:05 Lisinopril 2.5 Mg Tablet PO 12/30/23 08:59 2.5 mg DAILY JERILYN Administration Metoprolol Succinate 50 mg 12/27/22 09:00 12/30/22 08:06 Metoprolol Succinate 50 Mg Tab.Er.24h PO 12/27/23 08:59 50 mg DAILY JERILYN Administration Nicotine 1 each 12/27/22 00:30 12/30/22 08:05 Nicotine Patch 14 Mg/24hr 1 Each Patch.Td24 TRANSDERML 01/08/23 09:01 1 each DAILY JERILYN Administration Nystatin 1 applic 12/27/22 00:30 12/29/22 21:02 Nystatin 100,000 Unit/Gram Powder 15 Gm Bottle TOPICAL 12/27/23 00:29 1 applic BID JERILYN Administration Ondansetron HCl 4 mg 12/26/22 23:41 Ondansetron 4 Mg/2 Ml Vial IV-PUSH 12/26/23 23:40 Q8H PRN Nausea And Vomiting Pantoprazole Sodium 40 mg 12/27/22 09:00 12/30/22 08:05 Pantoprazole 40 Mg Tablet. PO 12/27/23 08:59 40 mg DAILY JERILYN Administration Paroxetine HCl 40 mg 12/27/22 09:00 12/30/22 08:06 Paroxetine 20 Mg Tablet PO 12/27/23 08:59 40 mg QAM JERILYN Administration Potassium Chloride 20 meq 12/28/22 06:28 Potassium Chloride Er 20 Meq Tab.Er.Prt PO 12/28/23 06:27 DAILY PRN Hypokalemia Potassium Chloride 40 meq 12/28/22 06:28 Potassium Chloride Er 20 Meq Tab.Er.Prt PO 12/28/23 06:27 DAILY PRN Hypokalemia Pregabalin 75 mg 12/27/22 09:00 12/30/22 08:05 Pregabalin 75 Mg Capsule PO 06/25/23 08:59 75 mg BID JERILYN Administration Sodium Chloride 0 ml 12/26/22 19:02 12/26/22 20:58 Sodium Chloride 0.9 % 10 Ml Syringe IV-PUSH 12/26/23 19:01 10 ml PRN PRN Administration Flush Sodium Chloride 0 ml 12/27/22 06:00 12/30/22 06:11 Sodium Chloride 0.9 % 10 Ml Syringe IV-PUSH 12/27/23 05:59 10 ml QSHIFT JERILYN Administration Tramadol HCl 50 mg 12/26/22 23:41 12/29/22 18:42 Tramadol 50 Mg Tablet PO 06/24/23 23:40 50 mg Q6H PRN Administration Pain Scale 4 - 7 Triamcinolone Acetonide 1 applic 12/27/22 09:00 12/29/22 21:02 Triamcinolone 0.1% Cream 15 Gm Tube TOPICAL 12/27/23 08:59 1 applic BID JERILYN Administration Vitamin D 50 mcg 12/27/22 09:00 12/30/22 08:05 Cholecalciferol 25 Mcg (1,000 Units) Tablet PO 12/27/23 08:59 50 mcg DAILY JERILYN Administration A&P - Hospitalist Assessment/Plan (1) Fall: (2) Acute hip pain: (3) Inability to perform activities of daily living: (4) Physical deconditioning: Plan Patient is a 77-year-old female with past medical history of coronary disease status post PCI in 2019 with stent, COPD, hypertension, chronic kidney disease stage III, TIA, sleep apnea and moderate to severe pulmonary hypertension as per echo done in 2019.? Patient brought to the ER with complaint of left hip pain and multiple falls. This is second ER visit in 2 months for hip pain following left hip replacement. Acute problems UTI -UA positive for infection -Previous urine cultures grew pansensitive E. coli, group B streptococcus and Klebsiella pneumonia -Urine culture showed E. coli -Continue Rocephin 1 g daily Hip pain s/p 2019 L intertrochanteric fx repair, left leg pain, resolved. Patient denies any further leg pain -CT hip, left negative for dislocation or fracture -Venous duplex US to bilat LE negative for DVT -X-ray left knee and ankle negative for dislocation or fracture. Positive for osteoarthritis deformities Generalized weakness, functional impairment,, deconditioning secondary to sedentary lifestyle, obesity and osteoarthritis -CT of head, C-spine, chest, abdomen/pelvis negative for acute pathology -PT/OT consult -Echo consistent with moderate pulmonary hypertension. Reveals pulmonary pressure appears to be lower than previous study down to 48 mmHg from 58 mmHg. No significant valve disease. Normal left ventricular wall motion and thickness with mild diastolic dysfunction. Ejection fraction 55 to 60% -BMP unremarkable -CBC unremarkable except chronic anemia Plan is to discharge patient to senior living unit for short period of time for inpatient physical and Occupational Therapy -Hypomagnesemia, magnesium low at 1.4. Was repleted. Recheck level in AM. Check phosphorus level -B12 and folate unremarkable -BNP and troponin unremarkable -orthostatic vitals unremarkable Pressure ulcer, stage II -Consult wound care Chronic problems Yeast infection under the breast -Nystatin cream as needed History of tobacco use. Recent cessation. -Apply nicotine patch as needed Coronary artery disease with stent placement in 2019 -Prescribed Brilinta at home but no evidence she picked it up from the pharmacy. Continue Plavix in the hospital. No chest pain or palpitation. No clinical evidence to suggest ACS or acute plaque rupture -Of note, patient is allergic to aspirin. Social issues. Adult Protective Services assures that home situation is okay. DVT prophylaxis: Lovenox 40 mg daily Diet: Regular Code status: Full Prognosis: fair Disposition: anticipated discharge to SNF Patient is medically cleared for discharge pending placement approval. The patient would likely need to have additional work-up, investigation and therapeutic intervention but will be determined based on the clinical progression and follow-up test result. Some of which could be done in the outpatient setting Documented By: Carla Hagan MD 12/30/22 0950 Signed By: <Electronically signed by Carla Hagan MD> 12/30/[address] [facility] Work Phone: [phone] 435-860203-04-2023 Progress note Author Carla Hagan [facility] December 29, 2022 10:00am Note Date/Time December 29, 2022 10:0 0am [facility] [address] [place] [address] Hospitalist Progress Note Signed Patient: Gera Perdue MR#: [id number] : 1945 Acct:[id number] Age/Sex: 77 / F Adm Date: 3 Loc: 4N Room: [address] [place] [address] Type: ADM IN Attending Dr: Carla Hagan MD Copies to: ~ Date of Service: 12/29/2022 Subjective Subjective Narrative: Following up on the patient. Patient is feeling better. She denies any new symptoms. Improvement of her pain and discomfort. No headaches, loss of conscious or seizure. No dysuria or hematuria. Patient is weak. Patient is chronically weak. She has a wheelchair at home. She has a walker. Exam Physical Exam Vital Signs: Temp Pulse Resp BP Pulse Ox O2 Del Method 98.2 F 78 20 105/66 91 L Room Air 12/29/22 03:49 12/29/22 08:49 12/29/22 08:49 12/29/22 03:49 12/29/22 08:12 12/29/22 03:49 Narrative: [pt is awake and alert. oriented to place, time and person. Morbidly obese HEENT: [place] conjunctiva and NL buccal mucosa Neck: Supple, no tenderness Endocrine: No Thyromegaly. Vascular: No JVD or carotid bruit. Lymphatic: No cervical lymphadenopathy. Chest: CTA no DTP. Heart RRR, no extra sound or murmur. Abd: Soft, no tenderness, no rebound and no rigidity. Increase abd girth therefore clinically I could not exclude the possibility of intra abd mass or organomegaly. LE: No cyanosis or clubbing, no varices or edema. Neuro: A A O. Nl speech, comprehension and attention. Symmetrical motor and tone. Moderate functional impairment. Patient needs assist standing up and ambulating. She blames it on having severe osteoarthritis involving her hips, knees and ankles. []] Objective Lab Results 12/28/22 05:00 12/28/22 05:00 Microbiology Results Microbiology 12/27/22 00:44 Urine - Voided Urine Culture - Final Escherichia coli Meds Allergies and Active Meds Allergies aspirin Adverse Reaction (Verified 11/22/22 10:27) Vomiting Active Meds: Active Medications Generic Name Dose Route Start Last Admin Trade Name Freq PRN Reason Stop Dose Admin Acetaminophen 650 mg 12/26/22 23:41 12/28/22 20:54 Acetaminophen 325 Mg Tablet PO 12/26/23 23:40 650 mg Q6HR PRN Administration Pain Scale 1 - 3 or fever Albuterol 2.5 mg 12/27/22 00:12 Albuterol Neb 2.5 Mg/3 Ml Vial.Neb INHALATION 12/27/23 00:11 Q6H PRN bronchospasm Albuterol/Ipratropium 3 ml 12/28/22 09:00 12/29/22 08:48 Ipratropium/Albuterol 0.5-3 Mg 3 Ml Ampul.Neb INHALATION 12/28/23 08:59 3 ml BID JERILYN Administration Atorvastatin Calcium 40 mg 12/27/22 21:00 12/28/22 20:54 Atorvastatin 40 Mg Tablet PO 12/27/23 20:59 40 mg QPM JERILYN Administration Bupropion HCl 300 mg 12/27/22 09:00 12/29/22 09:28 Bupropion 300 Mg Tab.Er.24h PO 12/27/23 08:59 300 mg QAM JERILYN Administration Calcium Carbonate 600 mg 12/27/22 09:00 12/29/22 09:27 Calcium Carbonate 500 Mg Tablet PO 12/27/23 08:59 600 mg DAILY JERILYN Administration Clopidogrel Bisulfate 75 mg 12/27/22 09:00 12/29/22 09:28 Clopidogrel Bisulfate 75 Mg Tablet PO 12/27/23 08:59 75 mg DAILY JERILYN Administration Heparin Sodium (Porcine) 5,000 unit 12/27/22 06:00 12/29/22 05:54 Heparin 5,000 Unit/Ml Vial SUBCUT 12/27/23 05:59 5,000 unit Q8HR JERILYN Administration Hydromorphone HCl 0.5 mg 12/27/22 03:58 12/29/22 05:54 Hydromorphone 0.5 Mg/0.5 Ml Syringe IV-PUSH 0.5 mg Q4H PRN Administration Pain Scale 8 - 10 Ceftriaxone Sodium 1 gm in 50 mls @ 100 mls/hr 12/27/22 12:30 12/28/22 12:30 Rocephin IV 100 mls/hr Q24H JERILYN Administration Magnesium Sulfate 2 gm in 50 mls @ 25 mls/hr 12/28/22 06:28 12/28/22 06:35 Magnesium Sulf 2gm-*Swfi* IV 12/28/23 06:27 25 mls/hr DAILY PRN Administration Magnesium Level < 1.5 Lisinopril 5 mg 12/29/22 09:57 Lisinopril 5 Mg Tablet PO 12/27/23 08:59 DAILY JERILYN Metoprolol Succinate 50 mg 12/27/22 09:00 12/29/22 09:27 Metoprolol Succinate 50 Mg Tab.Er.24h PO 12/27/23 08:59 50 mg DAILY JERILYN Administration Nicotine 1 each 12/27/22 00:30 12/29/22 09:27 Nicotine Patch 14 Mg/24hr 1 Each Patch.Td24 TRANSDERML 01/08/23 09:01 1 each DAILY JERILYN Administration Nystatin 1 applic 12/27/22 00:30 12/29/22 09:33 Nystatin 100,000 Unit/Gram Powder 15 Gm Bottle TOPICAL 12/27/23 00:29 1 applic BID JERILYN Administration Ondansetron HCl 4 mg 12/26/22 23:41 Ondansetron 4 Mg/2 Ml Vial IV-PUSH 12/26/23 23:40 Q8H PRN Nausea And Vomiting Pantoprazole Sodium 40 mg 12/27/22 09:00 12/29/22 09:27 Pantoprazole 40 Mg Tablet. PO 12/27/23 08:59 40 mg DAILY JERILYN Administration Paroxetine HCl 40 mg 12/27/22 09:00 12/29/22 09:27 Paroxetine 20 Mg Tablet PO 12/27/23 08:59 40 mg QAM JERILYN Administration Potassium Chloride 20 meq 12/28/22 06:28 Potassium Chloride Er 20 Meq Tab.Er.Prt PO 12/28/23 06:27 DAILY PRN Hypokalemia Potassium Chloride 40 meq 12/28/22 06:28 Potassium Chloride Er 20 Meq Tab.Er.Prt PO 12/28/23 06:27 DAILY PRN Hypokalemia Pregabalin 75 mg 12/27/22 09:00 12/29/22 09:27 Pregabalin 75 Mg Capsule PO 06/25/23 08:59 75 mg BID JERILYN Administration Sodium Chloride 0 ml 12/26/22 19:02 12/26/22 20:58 Sodium Chloride 0.9 % 10 Ml Syringe IV-PUSH 12/26/23 19:01 10 ml PRN PRN Administration Flush Sodium Chloride 0 ml 12/27/22 06:00 12/29/22 06:50 Sodium Chloride 0.9 % 10 Ml Syringe IV-PUSH 12/27/23 05:59 10 ml QSHIFT JERILYN Administration Tramadol HCl 50 mg 12/26/22 23:41 12/28/22 05:24 Tramadol 50 Mg Tablet PO 06/24/23 23:40 50 mg Q6H PRN Administration Pain Scale 4 - 7 Triamcinolone Acetonide 1 applic 12/27/22 09:00 12/29/22 09:32 Triamcinolone 0.1% Cream 15 Gm Tube TOPICAL 12/27/23 08:59 1 applic BID JERILYN Administration Vitamin D 50 mcg 12/27/22 09:00 12/29/22 09:27 Cholecalciferol 25 Mcg (1,000 Units) Tablet PO 12/27/23 08:59 50 mcg DAILY JERILYN Administration A&P - Hospitalist Assessment/Plan (1) Fall: (2) Acute hip pain: (3) Inability to perform activities of daily living: (4) Physical deconditioning: Plan Patient is a 77-year-old female with past medical history of coronary disease status post PCI in 2019 with stent, COPD, hypertension, chronic kidney disease stage III, TIA, sleep apnea and moderate to severe pulmonary hypertension as per echo done in 2019.? Patient brought to the ER with complaint of left hip pain and multiple falls. This is second ER visit in 2 months for hip pain following left hip replacement. Acute problems UTI -UA positive for infection -Previous urine cultures grew pansensitive E. coli, group B streptococcus and Klebsiella pneumonia -Urine culture showed E. coli -Continue Rocephin 1 g daily Hip pain s/p 2019 L intertrochanteric fx repair, left leg pain -CT hip, left negative for dislocation or fracture -Venous duplex US to bilat LE negative for DVT -X-ray left knee and ankle negative for dislocation or fracture Generalized weakness, edema, deconditioning secondary to sedentary lifestyle, obesity and osteoarthritis -CT of head, C-spine, chest, abdomen/pelvis negative for acute pathology -PT/OT consult -Echo consistent with moderate pulmonary hypertension. Reveals pulmonary pressure appears to be lower than previous study down to 48 mmHg from 58 mmHg. No significant valve disease. Normal left ventricular wall motion and thickness with mild diastolic dysfunction. Ejection fraction 55 to 60% -BMP unremarkable -CBC unremarkable except chronic anemia -Magnesium low at 1.4. Was repleted. -B12 and folate unremarkable -BNP and troponin unremarkable -orthostatic vitals unremarkable Pressure ulcer, stage II -Consult wound care Chronic problems Physical deconditioning -Continued eval for SNF placement. Pt needs further education on risks of current situation and lack of care. -[facility] plan for discharge at this time Yeast infection under the breast -Nystatin cream as needed History of tobacco use. Recent cessation. -Apply nicotine patch as needed Coronary artery disease with stent placement in 2019 -Prescribed Brilinta at home but no evidence she picked it up from the pharmacy. Continue Plavix in the hospital. No chest pain or palpitation. No clinical evidence to suggest ACS or acute plaque rupture -Of note, patient is allergic to aspirin. Functional impairment in the debility. Multifactorial secondary to obesity, DJD, deconditioning and sedentary lifestyle. Patient may need short-term skilled versus rehabilitation Multiple other medical issues not listed above. The patient likely will require additional investigative and therapeutic intervention will be determined based on the clinical progression and follow-up test result. Some of which could be done in the outpatient setting by PCP in collaboration with other needed outpatient providers Social issues. Adult Protective Services assures that home situation is okay. DVT prophylaxis: Heparin 5000u Diet: Regular Code status: Full Prognosis: fair Disposition: anticipated discharge to SNF Patient is medically cleared for discharge pending placement approval. The patient would likely need to have additional work-up, investigation and therapeutic intervention but will be determined based on the clinical progression and follow-up test result. Some of which could be done in the outpatient setting Documented By: Carla Hagan MD 12/29/22 0958 Signed By: <Electronically signed by Carla Hagan MD> 12/29/[address] [facility] Work Phone: [phone] Progress note Author Carla Hagan [facility] December 28, 2022 11:14am Note Date/Time December 28, 2022 9:27 am [facility] [address] [place] [address] Hospitalist Progress Note Signed Patient: Gera Perdue MR#: [id number] : 1945 Acct:[id number] Age/Sex: 77 / F Adm Date: 3 Loc: 4N Room: 0Y3340-0 Type: ADM IN Attending Dr: Carla Hagan MD Copies to: ~ Date of Service: 12/28/2022 Subjective Subjective Narrative: Patient reports she is feeling much better today. She was able to get some sleep and is eating breakfast currently. She reports her pain is much better today. Minimal pain in her left leg or hip. Mild pain in her left bottom wherea pressure ulcer is present. Denies any pain with urination. No fevers or chills. No dizziness. No chest pain or shortness of breath. No nausea vomiting or diarrhea. No abdominal pain or other complaints at this time. Exam Physical Exam Vital Signs: Temp Pulse Resp BP Pulse Ox O2 Del Method 98.9 F 80 16 130/78 92 L Room Air 12/28/22 08:00 12/28/22 08:11 12/28/22 08:11 12/28/22 08:00 12/28/22 08:00 12/28/22 08:00 Narrative: GENERAL: alert, oriented x3, appears stated age, comfortable, sitting up eating breakfast CARDIOVASCULAR: Regular rate and regular rhythm, no murmurs, symmetric palpable radial pulses RESPIRATORY: nonlabored work of breathing on room air, diffuse mild expiratory wheeze ABDOMEN: Soft, non-tender to palpation, Increased abdominal girth, normal bowel sounds BACK: No midline or paraspinal tenderness : Weepy, malodorous intertrigo improved from yesterday. Powder in abdominal folds. 2-3cm Stage II ulcer with yellow base and red, erythematous borders on posterior L leg under gluteal fold near vulva PureWick catheter in place draining clear urine. EXTREMITIES: moving upper extremities well. Well-perfused. Lower extremities with mild edema to bilateral feet and up to mid-avila. Knee brace present on L knee. Range of motion improved in bilateral lower extremities today. More motion in left leg than previous day, but still unable to lift her left leg completely. SKIN: Many scattered scabs in various stages of healing across extremities in non-follicular pattern. largest is 1x2cm on R medial thigh with surrounding erythema. Scab above left knee brace with some bleeding from irritation by brace. NEURO: Cranial nerves grossly intact, no focal neurologic signs. Mild resting tremor to hands. PSYCHIATRIC: Good eye contact, appropriate mood and affect, cooperative Objective Lab Results 12/28/22 05:00 12/28/22 05:00 Microbiology Results Microbiology 12/27/22 00:44 Urine - Voided Urine Culture - Preliminary Gram Negative Bacilli Meds Allergies and Active Meds Allergies aspirin Adverse Reaction (Verified 11/22/22 10:27) Vomiting Active Meds: Active Medications Generic Name Dose Route Start Last Admin Trade Name Freq PRN Reason Stop Dose Admin Acetaminophen 650 mg 12/26/22 23:41 12/27/22 03:37 Acetaminophen 325 Mg Tablet PO 12/26/23 23:40 650 mg Q6HR PRN Administration Pain Scale 1 - 3 or fever Albuterol 2.5 mg 12/27/22 00:12 Albuterol Neb 2.5 Mg/3 Ml Vial.Neb INHALATION 12/27/23 00:11 Q6H PRN bronchospasm Albuterol/Ipratropium 3 ml 12/28/22 09:00 12/28/22 08:11 Ipratropium/Albuterol 0.5-3 Mg 3 Ml Ampul.Neb INHALATION 12/28/23 08:59 3 ml BID JERILYN Administration Atorvastatin Calcium 40 mg 12/27/22 21:00 12/27/22 22:00 Atorvastatin 40 Mg Tablet PO 12/27/23 20:59 40 mg QPM JERILYN Administration Bupropion HCl 300 mg 12/27/22 09:00 12/27/22 09:03 Bupropion 300 Mg Tab.Er.24h PO 12/27/23 08:59 300 mg QAM JERILYN Administration Calcium Carbonate 600 mg 12/27/22 09:00 12/27/22 09:03 Calcium Carbonate 500 Mg Tablet PO 12/27/23 08:59 600 mg DAILY JERILYN Administration Clopidogrel Bisulfate 75 mg 12/27/22 09:00 12/27/22 09:03 Clopidogrel Bisulfate 75 Mg Tablet PO 12/27/23 08:59 75 mg DAILY JERILYN Administration Heparin Sodium (Porcine) 5,000 unit 12/27/22 06:00 12/28/22 05:25 Heparin 5,000 Unit/Ml Vial SUBCUT 12/27/23 05:59 5,000 unit Q8HR JERILYN Administration Hydromorphone HCl 0.5 mg 12/27/22 03:58 12/27/22 20:55 Hydromorphone 0.5 Mg/0.5 Ml Syringe IV-PUSH 0.5 mg Q4H PRN Administration Pain Scale 8 - 10 Ceftriaxone Sodium 1 gm in 50 mls @ 100 mls/hr 12/27/22 12:30 12/27/22 13:13 Rocephin IV 100 mls/hr Q24H JERILYN Administration Magnesium Sulfate 2 gm in 50 mls @ 25 mls/hr 12/28/22 06:28 12/28/22 06:35 Magnesium Sulf 2gm-*Swfi* IV 12/28/23 06:27 25 mls/hr DAILY PRN Administration Magnesium Level < 1.5 Lisinopril 5 mg 12/27/22 09:00 12/27/22 09:02 Lisinopril 5 Mg Tablet PO 12/27/23 08:59 5 mg DAILY JERILYN Administration Metoprolol Succinate 50 mg 12/27/22 09:00 12/27/22 09:02 Metoprolol Succinate 50 Mg Tab.Er.24h PO 12/27/23 08:59 50 mg DAILY JERILYN Administration Nicotine 1 each 12/27/22 00:30 12/27/22 09:04 Nicotine Patch 14 Mg/24hr 1 Each Patch.Td24 TRANSDERML 01/08/23 09:01 1 each DAILY JERILYN Administration Nystatin 1 applic 12/27/22 00:30 12/27/22 22:02 Nystatin 100,000 Unit/Gram Powder 15 Gm Bottle TOPICAL 12/27/23 00:29 1 applic BID JERILYN Administration Ondansetron HCl 4 mg 12/26/22 23:41 Ondansetron 4 Mg/2 Ml Vial IV-PUSH 12/26/23 23:40 Q8H PRN Nausea And Vomiting Pantoprazole Sodium 40 mg 12/27/22 09:00 12/27/22 09:04 Pantoprazole 40 Mg Tablet. PO 12/27/23 08:59 40 mg DAILY JERILYN Administration Paroxetine HCl 40 mg 12/27/22 09:00 12/27/22 09:02 Paroxetine 20 Mg Tablet PO 12/27/23 08:59 40 mg QAM JERILYN Administration Potassium Chloride 20 meq 12/28/22 06:28 Potassium Chloride Er 20 Meq Tab.Er.Prt PO 12/28/23 06:27 DAILY PRN Hypokalemia Potassium Chloride 40 meq 12/28/22 06:28 Potassium Chloride Er 20 Meq Tab.Er.Prt PO 12/28/23 06:27 DAILY PRN Hypokalemia Pregabalin 75 mg 12/27/22 09:00 12/27/22 22:00 Pregabalin 75 Mg Capsule PO 06/25/23 08:59 75 mg BID JERILYN Administration Sodium Chloride 0 ml 12/26/22 19:02 12/26/22 20:58 Sodium Chloride 0.9 % 10 Ml Syringe IV-PUSH 12/26/23 19:01 10 ml PRN PRN Administration Flush Sodium Chloride 0 ml 12/27/22 06:00 12/28/22 05:26 Sodium Chloride 0.9 % 10 Ml Syringe IV-PUSH 12/27/23 05:59 10 ml QSHIFT JERILYN Administration Tramadol HCl 50 mg 12/26/22 23:41 12/28/22 05:24 Tramadol 50 Mg Tablet PO 06/24/23 23:40 50 mg Q6H PRN Administration Pain Scale 4 - 7 Triamcinolone Acetonide 1 applic 12/27/22 09:00 12/27/22 22:02 Triamcinolone 0.1% Cream 15 Gm Tube TOPICAL 12/27/23 08:59 1 applic BID JERILYN Administration Vitamin D 50 mcg 12/27/22 09:00 12/27/22 09:02 Cholecalciferol 25 Mcg (1,000 Units) Tablet PO 12/27/23 08:59 50 mcg DAILY JERILYN Administration A&P - Hospitalist Assessment/Plan (1) Fall: (2) Acute hip pain: (3) Inability to perform activities of daily living: (4) Physical deconditioning: Plan Patient is a 77-year-old female with past medical history of coronary disease status post PCI in 2019 with stent, COPD, hypertension, chronic kidney disease stage III, TIA, sleep apnea and moderate to severe pulmonary hypertension as perecho done in 2019.? Patient brought to the ER with complaint of left hip pain and multiple falls. This is second ER visit in 2 months for hip pain following left hip replacement. Acute problems UTI -UA positive for infection -Previous urine cultures grew pansensitive E. coli, group B streptococcus and Klebsiella pneumonia -Urine culture showed gram-negative bacilli -Continue Rocephin 1 g daily Hip pain s/p 2019 L intertrochanteric fx repair, left leg pain -CT hip, left negative for dislocation or fracture -Venous duplex US to bilat LE negative for DVT -X-ray left knee and ankle negative for dislocation or fracture Generalized weakness, edema -CT of head, C-spine, chest, abdomen/pelvis negative for acute pathology -PT/OT consult -Echo consistent with moderate pulmonary hypertension. Reveals pulmonary pressure appears to be lower than previous study down to 48 mmHg from 58 mmHg. No significant valve disease. Normal left ventricular wall motion and thicknesswith mild diastolic dysfunction. Ejection fraction 55 to 60% -BMP unremarkable -CBC unremarkable except chronic anemia -Magnesium low at 1.4. Was replaced this morning. -B12 and folate unremarkable -BNP and troponin unremarkable -orthostatic vitals unremarkable Pressure ulcer, stage II -Consult wound care Chronic problems Physical deconditioning -Continued eval for SNF placement. Pt needs further education on risks of current situation and lack of care. -[facility] for discharge at this time Yeast infection under the breast -Nystatin cream as needed History of tobacco use. Recent cessation. -Apply nicotine patch as needed Coronary artery disease with stent placement in 2019 -Prescribed Brilinta at home but no evidence she picked it up from the pharmacy. Continue Plavix in the hospital. No chest pain or palpitation. No clinical evidence to suggest ACS or acute plaque rupture -Of note, patient is allergic to aspirin. Functional impairment in the debility. Multifactorial secondary to obesity, DJD, deconditioning and sedentary lifestyle. Patient may need short-term skilled versus rehabilitation Multiple other medical issues not listed above. The patient likely will requireadditional investigative and therapeutic intervention will be determined based on the clinical progression and follow-up test result. Some of which could be done in the outpatient setting by PCP in collaboration with other needed outpatient providers Social issues. Adult Protective Services assures that home situation is okay. DVT prophylaxis: Heparin 5000u Diet: Regular Code status: Full Prognosis: fair Disposition: anticipated discharge to SNF Given her complaint of multiple falls with possible syncopal episode and multiple risk factors she will require more than 2 midnights of hospital stay for further work-up of an cardiac monitoring to rule out any cardiac arrhythmia.? Patient will likely require senior living facility on discharge. Patient is medically cleared for discharge pending placement approval. The patient would likely need to have additional work-up, investigation and therapeutic intervention but will be determined based on the clinical progression and follow-up test result Documented By: Carla Hagan MD 12/28/22 0918 Signed By: <Electronically signed by Carla Hagan MD> 12/28/22 1114 <Electronically signed by DO SEAN Armas> 12/28/[address] [facility] Work Phone: [phone] Progress note Author Carla Hagan [facility] December 27, 2022 12:40pm Note Date/Time December 27, 2022 9:25 am [facility] [address] [place] [address] Hospitalist Progress Note Signed Patient: Gera Perdue MR#: [id number] : 1945 Acct:[id number] Age/Sex: 77 / F Adm Date: 3 Loc: Room: [address] [place] [address] Type: ADM IN Attending Dr: Carla Hagan MD Copies to: ~ Date of Service: 12/27/2022 Subjective Subjective Narrative: Patient reports she feels tired and weak this morning. She reports she continues to have left hip pain. She reports increased back pain and has history of chronic back pain. She reports she has had 4 back surgeries in the past. She reports she has had multiple falls at home over the last few months and worsening weakness over the past few days. She has also had increased swelling in her legs in the past few days. She most recently fell out of bed andhit her head on the nightstand. Denies loss of consciousness. She reports she uses a wheelchair and a walker at home and her boyfriend helps her get around. She is unable to complete her ADLs on her own. She receives home health twice aweek and home health nurse expressed concern that she is not able to adequately care for self. She is incontinent of urine and wears Depends. She reports she has had some pain with urination, but denies any hematuria. She is sometimes incontinent of stool since colostomy reversal. She has new bedsore that has notbeen evaluated by anyone yet. Patient seems unconcerned about many scattered scabs she attributes to fleas and cat scratches. These have been present for weeks to months. Patient is poor historian. Reports she has had chills over thepast few days. Reports increased fatigue and is dizzy at baseline. Denies chestpain or shortness of breath. Denies appetite change. She recently quit smoking a couple months ago--requires nicotine replacement. She reports she has had a cough since she stopped smoking. Exam Physical Exam Vital Signs: Temp Pulse Resp BP Pulse Ox O2 Del Method 97.7 F 80 16 114/67 94 L Room Air 12/27/22 07:39 12/27/22 07:39 12/27/22 07:39 12/27/22 07:39 12/27/22 07:39 12/27/22 07:39 Narrative: GENERAL: alert, oriented x3, appears stated age, comfortable HEENT: NC/AT, EOMI, PERRL, conjunctiva clear, no adenopathy, mucosa dry CARDIOVASCULAR: Regular rate and regular rhythm, no murmurs, symmetric palpable radial pulses RESPIRATORY: nonlabored work of breathing on room air, diffuse mild expiratory wheeze ABDOMEN: Soft, tender to palpation in the lower left and lower right quadrants, tenderness in the suprapubic region. Increased abdominal girth, normal bowel sounds BACK: No midline or paraspinal tenderness : Weepy, malodorous intertrigo. Powder in abdominal folds. 2-3cm Stage II ulcer with yellow base and red, erythematous borders on posterior L leg under gluteal fold near vulva EXTREMITIES: moving upper extremities well. Well-perfused. Lower extremities with moderate edema to bilateral feet and up to mid-avila. Knee brace present onL knee. ROM limited. Pt can abduct RLE and lift against gravity. Cannot lift or abduct LLE. Strength 4/5 and symmetric with extension against resistance andankle plantar flexion and dorsiflexion. SKIN: Many scattered scabs in various stages of healing across extremities in non-follicular pattern. largest is 1x2cm on R medial thigh with surrounding erythema NEURO: Cranial nerves grossly intact, no focal neurologic signs. Mild resting tremor to hands. PSYCHIATRIC: Good eye contact, appropriate mood and affect, cooperative Objective Lab Results 12/27/22 05:04 12/27/22 05:04 Meds Allergies and Active Meds Allergies aspirin Adverse Reaction (Verified 11/22/22 10:27) Vomiting Active Meds: Active Medications Generic Name Dose Route Start Last Admin Trade Name Freq PRN Reason Stop Dose Admin Acetaminophen 650 mg 12/26/22 23:41 12/27/22 03:37 Acetaminophen 325 Mg Tablet PO 12/26/23 23:40 650 mg Q6HR PRN Administration Pain Scale 1 - 3 or fever Albuterol 2.5 mg 12/27/22 00:12 Albuterol Neb 2.5 Mg/3 Ml Vial.Neb INHALATION 12/27/23 00:11 Q6H PRN bronchospasm Albuterol/Ipratropium 3 ml 12/27/22 09:00 Ipratropium/Albuterol 0.5-3 Mg 3 Ml Ampul.Neb INHALATION 12/27/23 08:59 BID JERILYN Atorvastatin Calcium 40 mg 12/27/22 21:00 Atorvastatin 40 Mg Tablet PO 12/27/23 20:59 QPM JERILYN Budesonide 0.5 mg 12/27/22 06:00 Budesonide 0.5 Mg/2 Ml Ampul.Neb INHALATION 12/27/23 05:59 BID@0600,1800 [facility] Bupropion HCl 300 mg 12/27/22 09:00 Bupropion 300 Mg Tab.Er.24h PO 12/27/23 08:59 QAM [facility] Calcium Carbonate 600 mg 12/27/22 09:00 Calcium Carbonate 500 Mg Tablet PO 12/27/23 08:59 DAILY [facility] Clopidogrel Bisulfate 75 mg 12/27/22 09:00 Clopidogrel Bisulfate 75 Mg Tablet PO 12/27/23 08:59 DAILY [facility] Heparin Sodium (Porcine) 5,000 unit 12/27/22 06:00 12/27/22 06:14 Heparin 5,000 Unit/Ml Vial SUBCUT 12/27/23 05:59 5,000 unit Q8HR [facility] Administration Hydromorphone HCl 0.5 mg 12/27/22 03:58 Hydromorphone 0.5 Mg/0.5 Ml Syringe IV-PUSH Q4H PRN Pain Scale 8 - 10 Lisinopril 5 mg 12/27/22 09:00 Lisinopril 5 Mg Tablet PO 12/27/23 08:59 DAILY [facility] Metoprolol Succinate 50 mg 12/27/22 09:00 Metoprolol Succinate 50 Mg Tab.Er.24h PO 12/27/23 08:59 DAILY [facility] Nicotine 1 each 12/27/22 00:30 12/27/22 00:48 Nicotine Patch 14 Mg/24hr 1 Each Patch.Td24 TRANSDERML 01/08/23 09:01 1 each DAILY JERILYN Administration Nystatin 1 applic 12/27/22 00:30 12/27/22 00:48 Nystatin 100,000 Unit/Gram Powder 15 Gm Bottle TOPICAL 12/27/23 00:29 1 applic BID JERILYN Administration Ondansetron HCl 4 mg 12/26/22 23:41 Ondansetron 4 Mg/2 Ml Vial IV-PUSH 12/26/23 23:40 Q8H PRN Nausea And Vomiting Pantoprazole Sodium 40 mg 12/27/22 09:00 Pantoprazole 40 Mg Tablet. PO 12/27/23 08:59 DAILY JERILYN Paroxetine HCl 40 mg 12/27/22 09:00 Paroxetine 20 Mg Tablet PO 12/27/23 08:59 QAM JERILYN Pregabalin 75 mg 12/27/22 09:00 Pregabalin 75 Mg Capsule PO 06/25/23 08:59 BID JERILYN Sodium Chloride 0 ml 12/26/22 19:02 12/26/22 20:58 Sodium Chloride 0.9 % 10 Ml Syringe IV-PUSH 12/26/23 19:01 10 ml PRN PRN Administration Flush Sodium Chloride 0 ml 12/27/22 06:00 12/27/22 06:14 Sodium Chloride 0.9 % 10 Ml Syringe IV-PUSH 12/27/23 05:59 10 ml QSHIFT JERILYN Administration Tramadol HCl 50 mg 12/26/22 23:41 12/27/22 06:14 Tramadol 50 Mg Tablet PO 06/24/23 23:40 50 mg Q6H PRN Administration Pain Scale 4 - 7 Triamcinolone Acetonide 1 applic 12/27/22 09:00 Triamcinolone 0.1% Cream 15 Gm Tube TOPICAL 12/27/23 08:59 BID [facility] Vitamin D 50 mcg 12/27/22 09:00 Cholecalciferol 25 Mcg (1,000 Units) Tablet PO 12/27/23 08:59 DAILY [facility] A&P - Hospitalist Assessment/Plan (1) Fall: (2) Acute hip pain: (3) Inability to perform activities of daily living: (4) Physical deconditioning: Plan Patient is a 77-year-old female with past medical history of coronary disease status post PCI in 2019 with stent, COPD, hypertension, chronic kidney disease stage III, TIA, sleep apnea and moderate to severe pulmonary hypertension as perecho done in 2020.? Patient brought to the ER with complaint of left hip pain and multiple falls. This is second ER visit in 2 months for hip pain following left hip replacement. Acute problems UTI -UA positive for infection -Previous urine cultures grew pansensitive E. coli, group B streptococcus and Klebsiella pneumonia -Urine culture pending -Start Rocephin 1 g daily Hip pain s/p 2020 L intertrochanteric fx repair, left leg pain -CT hip, left negative for dislocation or fracture -Venous duplex US to bilat LE negative for DVT -X-ray left knee and ankle Generalized weakness, edema -CT of head, C-spine, chest, abdomen/pelvis negative for acute pathology -PT/OT consult -Echo consistent with moderate pulmonary hypertension. Reveals pulmonary pressure appears to be lower than previous study down to 48 mmHg from 58 mmHg. No significant valve disease. Normal left ventricular wall motion and thicknesswith mild diastolic dysfunction. Ejection fraction 55 to 60% -BMP unremarkable -CBC unremarkable except chronic anemia -B12 and folate unremarkable -BNP and troponin unremarkable -orthostatic vitals unremarkable Pressure ulcer, stage II -Consult wound care Chronic problems Physical deconditioning -Needs eval for SNF placement. Pt needs further education on risks of current situation and lack of care. Yeast infection under the breast -Nystatin cream as needed History of tobacco use. Recent cessation. -Apply nicotine patch as needed Coronary artery disease with stent placement in 2019 -Prescribed Brilinta at home but no evidence she picked it up from the pharmacy. Continue Plavix in the hospital. No chest pain or palpitation. No clinical evidence to suggest ACS or acute plaque rupture -Of note, patient is allergic to aspirin. Functional impairment in the debility. Multifactorial secondary to obesity, DJD, deconditioning and sedentary lifestyle. Patient may need short-term skilled versus rehabilitation Multiple other medical issues not listed above. The patient likely will requireadditional investigative and therapeutic intervention will be determined based on the clinical progression and follow-up test result. Some of which could be done in the outpatient setting by PCP in collaboration with other needed outpatient providers Social issues. Nursing reports stated that home situation is of questionable sanitary status. We will get adult protective services involved DVT prophylaxis: Heparin 5000u Diet: Regular Code status: Full Prognosis: fair Disposition: anticipated discharge to SNF Given her complaint of multiple falls with possible syncopal episode and multiple risk factors she will require more than 2 midnights of hospital stay for further work-up of an cardiac monitoring to rule out any cardiac arrhythmia.? Patient will likely require senior living facility on discharge. Documented By: Carla Hagan MD 12/27/22 0857 Signed By: <Electronically signed by Carla Hagan MD> 12/27/22 1240 <Electronically signed by DO SEAN Armas> 12/27/[address] [facility] Work Phone: [phone] 187-106203-02-2023 History and physical note Author Jolanta Mckenzie [facility] December 27, 2022 12:32am Note Date/Time December 26, 2022 11:0 5pm [facility] [address] [place] [address] Hospitalist H&P Signed with Addenda Patient: Gera Perdue MR#: [id number] : 1945 Acct:[id number] Age/Sex: 77 / F Adm Date: 3 Loc: Room: [address] [place] [address] Type: ADM IN Attending Dr: Jolanta Mckenzie MD Copies to: DO Jolanta Zambrano MD~ ADDENDUM2 List of allergies include aspirin leading to vomiting. As per previous record she was on Brilinta currently does not appear on her pharmacy list. Need to clarify with the pharmacy in the morning regarding her correct home medication. For now we will start her on Plavix. Addendum Documented By: Jolanta Mckenzie MD 12/27/2231 Addendum Signed By: <Electronically signed by Jolanta Mckenzie MD> 12/27/22 0032 ADDENDUM1 Patient was personally seen by me on the day of encounter, reviewed her history and performed dai elements of exam and formulated the plan of care and confirmedthe resident/interns note below. Patient is a 77-year-old female with past medical history of coronary disease status post PCI in 2019, COPD, hypertension, chronic kidney disease stage III, TIA and moderate to severe pulmonary hypertension as per echo done in 2019. Patient brought to the ER with complaint of left hip pain. She mentioned falling 3 days ago has not been able to get due to significant pain in the left hip area. She has been feeling dizzy for quite some time and mentioned falling frequently. She lives in a trailer with her boyfriend appears to be a poor historian. On examination no focal motor deficit noted other than limited rangeof motion in the left lower extremity due to pain on flexion. In the ER CT head, C-spine, chest/abdomen/pelvis did not show any acute abnormality. Given her significant pain in the left hip will obtain CT of the left hip. She does have history of hip arthroplasty. Noted to have significant swelling in both lower extremity likely from severe pulm hypertension. Given her history of pulmonary hypertension possibility of syncopal episode cannot be ruled out. Will obtain 2D echocardiogram and venous duplex. Continue her on aspirin and other home medications. Consult PT/OT. Check for orthostasis. Given her complaint of multiple falls with possible syncopal episode and multiple risk factors she will require more than 2 midnights of hospital stay for further work-up of an cardiac monitoring to rule out any cardiac arrhythmia. Patient will likely require senior living facility on discharge. Addendum Documented By: Jolanta Mckenzie MD 12/27/2229 Addendum Signed By: <Electronically signed by Jolanta Mckenzie MD> 12/27/22 0030 HPI DATE OF EXAMINATION: 12/26/22 CHIEF COMPLAINT: falls HISTORY OF PRESENT ILLNESS: Ms. Gera Perdue is a 77yo female with hx of arthritis, cardiac stent x1, andNov 2020 left intertrochanteric hip fix s/p TFN repair. She had just presented to ED approximately 1 month ago for left hip with no acute findings. Today, shepresents for unexplained fall with head trauma, weakness, and leg pain. Head CT, Chest CT, abd/pelvis CT obtained in emergency department negative for acute injury. She is admitted to evaluate SNF placement. Patient said her pain never resolved after leaving the ED 1 month ago. She did follow-up with primary care who put in referral to pain management, but she has not heard from them. Things have worsened in the past 3 days and is now complaining of pain and swelling in both legs. Pain has kept her from sleeping for the past 3 nights, and she has remained immobile in this time. She fell this morning after getting out of bed. Denies tripping or feeling lightheaded. Her roommate Jimenez helped her off the floor. Her sharp, shooting, constant pain did not resolve with arthritis meds. She receives home health twice weekly, and the home health nurse has expressed concern that Gera is not able to adequately care for self. Home health givesGera a bath on Saturday and . Otherwise, she does not bathe. She can dress herself. She cannot get up to prepare her meals, and her hands shake too much to carry out necessary tasks. She gets little fluid intake and relies on [employer] program. She is reliant on Jimenez to grocery shop, pay bills, prepare food, and care for the home. She uses a walker and wheelchair and cannot stand or ambulate well. She is incontinent of urine and wears Depends. She is sometimes incontinent of stool since colostomy reversal. She now has a new bedsore that has not yet been evaluated by anyone but home health. Denies other potential sources of infection. Patient seems unconcerned about many scattered scabs she attributes to fleas and cat scratches. These havebeen present for weeks to months. Patient is poor historian. Due to prolonged immobility, necessity of PT/OT, and placement to SNF, pt will require more than 2 midnight stays. ROS: Denies fever or chills. Endorses fatigue x1 day. Endorses constant dizziness at baseline. Denies chest pain or shortness of breath. Denies appetite change. All other systems negative unless otherwise noted in HPI Past Medical History Arthritis COPD (chronic obstructive pulmonary disease) Depression Diverticulitis GERD (gastroesophageal reflux disease) HLD (hyperlipidemia) HTN (hypertension) Kidney stone Sleep apnea Umbilical hernia Surgical History History of back surgery History of colostomy History of colostomy reversal Hx of heart artery stent Hx of L hip fracture s/p trochanteric fixation nail repair Family History Mother: Bone cancer Sister: Cancer Father: Heart problem Social History Lives with friend Jimenez in a trailer. She is dependent on Jimenez and Home Health fornearly all ADLs. Patient endorses stress due to daughter's lack of help and apparent desire to gain access to her finances and trailer. Many cats living in trailer. Quit smoking a couple months ago--requires nicotine replacement. Review of Systems Review of Systems All other systems reviewed & are negative unless noted below or in HPI PMFSH Vaccinated for COVID-19?: Yes Medical History (Updated 12/27/22 @ 00:18 by Eve Mann MD, RES) Arthritis COPD (chronic obstructive pulmonary disease) Depression Diverticulitis GERD (gastroesophageal reflux disease) HLD (hyperlipidemia) HTN (hypertension) Intertrochanteric fracture of left hip Aug 2020 Kidney stone Pulmonary HTN Sleep apnea Umbilical hernia Surgical History History of back surgery History of colostomy History of colostomy reversal Hx of heart artery stent Family History Mother Bone cancer Sister Cancer Father Heart problem Social History Smoking Status: Current every day smoker Tobacco Type: cigarettes Substance Use Type: None Social History Comments: unknown, patient confused and alone Meds Medications and Allergies Allergies aspirin Adverse Reaction (Verified 11/22/22 10:27) Vomiting Home Medications acetaminophen 325 mg tablet 650 mg PO Q4H PRN Pain Scale 1 - 5 #0 tabs 09/21/20 [Rx Confirmed 12/26/22] alendronate 70 mg tablet 70 mg PO QWEEK 30 days #30 tabs 09/21/20 [Rx Confirmed 12/26/22] atorvastatin 40 mg tablet 40 mg PO QPM 30 days #30 tabs 09/21/20 [Rx Confirmed 12/26/22] budesonide 0.5 mg/2 mL suspension for nebulization 0.5 mg (2 mL) inhalation BID@0600,1800 30 days #100 mL 09/21/20 [Rx Confirmed 12/26/22] bupropion HCl 300 mg 24 hr tablet, extended release 300 mg PO QAM 30 days #30 tabs 09/21/20 [Rx Confirmed 12/26/22] cholecalciferol (vitamin D3) 25 mcg (1,000 unit) tablet 2,000 unit PO DAILY 30 days #30 tabs 09/21/20 [Rx Confirmed 12/26/22] ipratropium 0.5 mg-albuterol 3 mg (2.5 mg base)/3 mL nebulization soln 3 ml inhalation BID 3 days #250 mL 09/21/20 [Rx Confirmed 12/26/22] metoprolol succinate 50 mg tablet,extended release 24 hr 50 mg PO DAILY 30 days #30 tabs 09/21/20 [Rx Confirmed 12/26/22] pantoprazole 40 mg tablet,delayed release (Protonix) 40 mg PO DAILY 30 days #30 tabs 09/21/20 [Rx Confirmed 12/26/22] paroxetine HCl 40 mg tablet (Paxil) 40 mg PO QAM 30 days #30 tabs 09/21/20 [Rx Confirmed 12/26/22] pregabalin 75 mg capsule 75 mg PO BID 30 days #60 caps 09/21/20 [Rx Confirmed 12/26/22] albuterol sulfate 90 mcg/actuation aerosol inhaler 2 inh inhalation Q6H PRN bronchospasm 7 days #8 grams 05/31/22 [Rx Confirmed 12/26/22] ammonium lactate 12 % topical cream 1 applic topical BID 12/26/22 [History Confirmed 12/26/22] calcium 600 mg capsule 600 mg PO DAILY 12/26/22 [History Confirmed 12/26/22] calcium carbonate 500 mg calcium (1,250 mg) chewable tablet 500 mg PO DAILY 12/26/22 [History Confirmed 12/26/22] lisinopril 5 mg tablet 5 mg PO DAILY 12/26/22 [History Confirmed 12/26/22] nystatin 100,000 unit/gram topical cream 1 applic topical BID 12/26/22 [History Confirmed 12/26/22] triamcinolone acetonide 0.1 % topical cream 1 applic topical BID 12/26/22 [History Confirmed 12/26/22] Exam Physical Exam Vital Signs: Temp Pulse Resp BP Pulse Ox O2 Del Method 98.8 F 74 20 116/57 L 99 Room Air 12/26/22 18:59 12/26/22 21:24 12/26/22 21:24 12/26/22 21:24 12/26/22 21:24 12/26/22 21:24 Narrative: GENERAL: No apparent distress, alert, oriented, appears stated age, comfortable HEENT: NC/AT, EOMI, PERRL, conjunctiva clear, no adenopathy, mucosa dry CARDIOVASCULAR: Regular rate and regular rhythm, no murmurs, symmetric palpable radial pulses RESPIRATORY: nonlabored work of breathing on room air, diffuse mild expiratory wheeze ABDOMEN: Soft, tender to palpation in the lower left and lower right quadrants, increased abdominal girth, normal bowel sounds BACK: No midline or paraspinal tenderness : Weepy, malodorous intertrigo. Powder in abdominal folds. 2-3cm Stage II ulcer with yellow base and red, erthematous borders on posterior L leg under gluteal fold near vulva EXTREMITIES: moving upper extremities well. Well-perfused. Lower extremities with pitting edema to bilateral feet and up to mid-avila. Knee brace present on L knee. ROM limited. Pt can abduct RLE and lift against gravity. Cannot lift or abduct LLE. Strength 4/5 and symmetric with extension against resistance andankle plantar flexion and dorsiflexion. SKIN: Many scattered scabs in various stages of healing across extremities in non-follicular pattern. largest is 1x2cm on R medial thigh with surrounding erythema NEURO: Cranial nerves grossly intact, no focal neurologic signs. Mild resting tremor to hands. PSYCHIATRIC: Good eye contact, appropriate mood and affect, cooperative Results Lab Results Labs: Laboratory Last Values Corrected WBC 12.0 X10E3/uL (3.8-11.6) H 12/26/22 19:36 Uncorrected WBC Count 12.0 x10E3/uL (3.8-11.6) H 12/26/22 19:36 RBC 3.74 X10E6/uL (3.60-5.00) 12/26/22 19:36 Hgb 9.3 g/dL (11.8-15.4) L 12/26/22 19:36 Hct 29.7 % (34.0-46.4) L 12/26/22 19:36 MCV 79.4 fl (80-100) L 12/26/22 19:36 MCH 24.8 pg (24.7-34.3) 12/26/22 19:36 MCHC 31.2 g/dL (32.0-35.0) L 12/26/22 19:36 RDW 15.9 % (11.9-15.3) H 12/26/22 19:36 Plt Count 450 x10E3/uL (150-450) 12/26/22 19:36 MPV 6.5 fl (6.3-10.7) 12/26/22 19:36 Neut % (Auto) 63.5 % (.) 12/26/22 19:36 Lymph % (Auto) 24.8 % (.) 12/26/22 19:36 [place] % (Auto) 10.1 % (.) 12/26/22 19:36 Eos % (Auto) 1.1 % (.) 12/26/22 19:36 Baso % (Auto) 0.5 % (.) 12/26/22 19:36 Nucleat RBC Rel Count 0.1 /100 WBC (0-0.5) 12/26/22 19:36 Neut # (Auto) 7.6 x10E3/uL (1.8-7.7) 12/26/22 19:36 Lymph # (Auto) 3.0 x10E3/uL (1.00-4.8) 12/26/22 19:36 [place] # (Auto) 1.2 x10E3/uL (0.0-0.8) H 12/26/22 19:36 Eos # (Auto) 0.1 x10E3/uL (0.0-0.45) 12/26/22 19:36 Baso # (Auto) 0.1 x10E3/uL (0.0-0.2) 12/26/22 19:36 Monocyte Dist Width 20.22 % (0.00-20.00) H 12/26/22 19:36 PT 14.5 Seconds (9.0-12.9) H 12/26/22 19:36 INR 1.3 12/26/22 19:36 APTT 30.8 Seconds (25.1-36.5) 12/26/22 19:36 PHA Creatinine Clear 37.20 12/26/22 19:36 Sodium 136 mmol/L (136-146) 12/26/22 19:36 Potassium 3.9 mmol/L (3.5-5.1) 12/26/22 19:36 Chloride 104 mmol/L (95-114) 12/26/22 19:36 Carbon Dioxide 25.8 mmol/L (22.0-30.0) 12/26/22 19:36 Anion Gap 10.1 mEq/L (6.0-15.0) 12/26/22 19:36 BUN 21 mg/dL (9-23) 12/26/22 19:36 Creatinine 1.22 mg/dL (0.44-1.03) H 12/26/22 19:36 Est GFR ( Amer) 52 mL/Min 12/26/22 19:36 Est GFR (Non-Af Amer) 43 mL/Min 12/26/22 19:36 Glucose 128 mg/dL (70-100) H 12/26/22 19:36 Calcium 9.0 mg/dL (8.2-10.2) 12/26/22 19:36 Troponin I High Sens 6 pg/mL (0-15) 12/26/22 19:36 B-Natriuretic Peptide 49.0 pg/mL (5-100) 12/26/22 19:36 A&P - Hospitalist Assessment/Plan (1) Fall: (2) Acute hip pain: (3) Inability to perform activities of daily living: (4) Physical deconditioning: Plan Acute problems Hip pain s/p 2019 L intertrochanteric fx repair -CT hip, left -Venous duplex US to bilat LE Generalized weakness, edema -PT/OT consults -Echo -Labs: CBC, BMP, B12/Folate -orthostatic vitals Pressure ulcer, stage II -Consult wound care Chronic problems Physical deconditioning -Needs eval for SNF placement. Pt needs further education on risks of current situation and lack of care. DVT prophylaxis: Heparain 5000u Diet: Regular Code status: Full Prognosis: fair Disposition: anticipated discharge to SNF Documented By: Jolanta Mckenzie MD 12/26/222241 Signed By: <Electronically signed by Jolanta Mckenzie MD> 12/27/22 0026 <Electronically signed by MD SEAN Mann> 12/27/[address] [facility] Work Phone: [phone] NoteHISTORY: Bone density screening. COMPARISON: 08/03/2020 PROCEDURE: Imaging of the lumbar spine and right hip, and right forearm was obtained for bone density evaluation. FINDINGS: REGION BMD (g/cm??) YOUNG ADULT T-SCORE AGE-MATCHED Z-SCORE Right forearm (3) 0.554 -2.3 0.4 RIGHT NECK 0.592 -2.3 -0.2 LUMBAR (L1-L4) 0.986 -0.6 1.9 The mean BMD and corresponding T-score listed above indicate: Osteopenia and places the patient at a mild to moderate increased risk for fracture. There may be a future risk of developing osteoporosis. Recommend follow-up exam in 1 year, sooner as clinically necessary. Compared to prior study, insignificant 0.7% decrease in BMD of the lumbar spine and insignificant 1.5% increase in BMD of the right hip. Comment: The T-score is the primary focus of the interpretation of a patient???s bone mineral density measurement. The T-score is the number of standard deviations and individual is above or below the mean value for a young female having normal bone mass. The WHO defines osteoporosis based on the T-score value: +1.0 to -0.9 : Normal bone mass -1.0 to -2.5 : Osteopenia and thus may be at future risk of fracture. -2.6 to -5.0 : Osteoporosis and at significantly increased risk of fracture. IMPRESSION: OSTEOPENIA : ONE YEAR FOLLOW-UP RECOMMENDED Report reported and signed by Edgar Hooper on 05/01/2022 1000[facility]06-28-2022 Evaluation note* Encounter Date Diagnosis Assessment Notes Treatment Notes Treatment Clinical Notes Mar, Major depressive disorder, recurrent severe without psychotic features (ICD-10 - F33.2) [employer] Other 03-24-2022 Evaluation note* Encounter Date Diagnosis Assessment Notes Treatment Notes Treatment Clinical Notes Dec, GERD (gastroesophageal reflux disease) (ICD-10 - K21.9) [facility] Other Discharge summary Author Jesus Alberto Aquino [facility] December 31, 2022 3:43pm Note Date/Time December 31, 2022 11:5 7am [facility] [address] [place] [address] Discharge Summary Signed Patient: Gera Perdue MR#: [id number] : 1945 Acct:[id number] Age/Sex: 77 / F Adm Date: 3 Loc: 4N Room: 4A6796-[address]: Jesus Alberto Aquino MD Copies to: MD Gustavo Keen,DO~ Providers Date of Discharge: 12/31/22 Discharging Provider: Jesus Alberto Aquino Primary Care Provider: Gustavo Salas Consults: 12/26/22 23:41 Consult to Case Management Routine 12/26/22 23:46 Consult to Occupational Therapy Routine Consult to Physical Therapy Routine Discharge Diagnosis Final Diagnosis Final Discharge Diagnosis: Urinary tract infection with E. coli Instability and falls in the setting of the above Chronic problems Chronic moderate pulmonary hypertension due to COPD COPD Hypertension CKD stage III Cerebrovascular disease and history of TIA CAD status post PTCA and stent 2019 Obesity class II Summary Hospital Course Hospital course: Patient is a 77-year-old female, who presented to the emergency department on December 26, complaining of a fall with head trauma. Work-up identified no significant injury.Patient was admitted to the hospital for further evaluation and treatment. She does have bilateral lower extremity edema in the setting of pulmonary hypertension in the right heart failure. An echocardiogram showed RV SP of 40 to 50 mmHg. This was better than the prior level. There was evidence of urinary tract infection with E. coli. Patient received treatment with ceftriaxone. No complications occurred, and patient was discharged to senior living facility in stable condition on December 31. Time Spent with Patient Time spent providing/coordinating discharge services (# min): 40 Diagnostic Studies Completed and Pending Studies Labs on day of discharge: 12/31/22 05:22: PHA Creatinine Clear 45.60, Sodium 134 L, Potassium 4.1, Chloride 99, Carbon Dioxide 26.2, Anion Gap 12.9, BUN 18, Creatinine 0.99, Est GFR ( Amer) > 60, Est GFR (Non-Af Amer) 54, Glucose 115 H, Calcium 8.6, Phosphorus 3.5, Magnesium 1.5 L 12/31/22 05:22: Corrected WBC 13.4 H, Uncorrected WBC Count 13.4 H, RBC 3.86, Hgb 9.8 L, Hct 30.2 L, MCV 78.2 L, MCH 25.3, MCHC 32.3, RDW 15.7 H, Plt Count 447, MPV 6.6, Neut % (Auto) N/A, Lymph % (Auto) N/A, [place] % (Auto) N/A, Eos % (Auto) N/A, Baso % (Auto) N/A, Nucleat RBC Rel Count N/A, Neut # (Auto) N/A, Lymph # (Auto) N/A, [place] # (Auto) N/A, Eos # (Auto) N/A, Baso # (Auto) N/A, Lymphocytes % 8 L, Monocytes % 5, Eosinophils % 1, Basophils % 1, Segmented Neutrophils 86 H, Platelet Estimate Normal, Giant Platelets 1, Plt Morphology Comment Normal, RBC Morphology N/A, Polychromasia Slight, Hypochromasia Slight, Poikilocytosis Slight, Anisocytosis Moderate, Microcytosis Moderate, Helmet Cells Slight Exam Physical Exam Vital Signs: Temp Pulse Resp BP Pulse Ox O2 Del Method O2 Flow Rate 97.5 F L 91 H 22 114/72 93 L Nasal Cannula 1.5 12/31/22 08:00 12/31/22 09:20 12/31/22 09:20 12/31/22 08:00 12/31/22 09:23 12/31/22 09:23 12/31/22 09:23 Discharge Plan Discharge Plan Patient Disposition: [facility]dc Facility Activity: No Activity Restriction Diet: Regular Additional Instructions: SNF TO MANAGE: PT/OT to eval and treat Monitor VS per protocol Oxygen currently at 1.5l per NC *Wean off as tolerated Skin care TID: *theraworx protect to skin folds with redness, then apply nystatin powder Dressing change every 2 days to left ischuim stage 2 pressure injury: *clean wound with vashe, apply therahoney sheet, then polymem ag, secure with opsite Maintain high risk fall precautions Care to be managed by SNF providers Prescriptions: New clopidogrel 75 mg Tablet 75 mg PO DAILY Qty: 0 0RF nystatin [Nystop] 100,000 unit/gram Powder 1 applic topical BID 7 Days Qty: 0 0RF lisinopril 2.5 mg Tablet 2.5 mg PO DAILY Qty: 0 0RF Continued atorvastatin 40 mg Tablet 40 mg PO QPM 30 Days Qty: 30 0RF acetaminophen 325 mg Tablet 650 mg PO Q4H PRN (Reason: Pain Scale 1 - 5) Qty: 0 0RF budesonide 0.5 mg/2 mL Suspension For Nebulization 0.5 mg inhalation BID@0600,1800 30 Days Qty: 100 0RF metoprolol succinate 50 mg Tablet Extended Release 24 Hr 50 mg PO DAILY 30 Days Qty: 30 0RF pregabalin 75 mg Capsule 75 mg PO BID 30 Days Qty: 60 0RF alendronate 70 mg tablet 70 mg PO QWEEK 30 Days Qty: 30 0RF Patient Comments: TAKE 1 TABLET BY MOUTH 30 MINUTES BEFORE FIRST FOOD, BEVERAGE OR MEDICINE WITH PLAIN WATER ONCE A WEEK Rx Instructions: must sit up for 30min post admin pantoprazole [Protonix] 40 mg tablet,delayed release (DR/EC) 40 mg PO DAILY 30 Days Qty: 30 0RF Patient Comments: paroxetine HCl [Paxil] 40 mg tablet 40 mg PO QAM 30 Days Qty: 30 0RF Patient Comments: bupropion HCl 300 mg Tablet Extended Release 24 Hr 300 mg PO QAM 30 Days Qty: 30 0RF cholecalciferol (vitamin D3) 25 mcg (1,000 unit) Tablet 2,000 unit PO DAILY 30 Days Qty: 30 0RF ipratropium-albuterol 0.5 mg-3 mg(2.5 mg base)/3 mL Solution For Nebulization 3 ml inhalation BID 3 Days Qty: 250 0RF albuterol sulfate 90 mcg/actuation HFA aerosol inhaler 2 inh inhalation Q6H PRN (Reason: bronchospasm) 7 Days Qty: 8 0RF Rx Instructions: administer with spacer calcium 600 mg Capsule 600 mg PO DAILY triamcinolone acetonide 0.1 % Cream 1 applic TOPICAL BID nystatin 100,000 unit/gram Cream 1 applic TOPICAL BID ammonium lactate 12 % Cream 1 applic TOPICAL BID calcium carbonate 500 mg calcium (1,250 mg) Tablet,Chewable 500 mg PO DAILY Discontinued lisinopril 5 mg tablet 5 mg PO DAILY Patient Comments: TAKE 1 TABLET BY MOUTH EVERY DAY Documented By: Jesus Alberto Aquino MD 12/31/22 1152 Signed By: <Electronically signed by Jesus Alberto Aquino MD> 12/31/[address] [facility] Work Phone: Discharge summary Author Jolanta Mckenzie [facility] July 14, 2023 11:16am Note Date/Time July 14, 2023 11:16am [facility] [address] [place] [address] Discharge Summary Signed Patient: Gera Perdue MR#: [id number] : 1945 Acct:[id number] Age/Sex: 77 / F Adm Date: 3 Loc: Room: [address] [place] [address]: Jolanta Mckenzie MD Copies to: DO Jolanta Zambrano MD~ Providers Date of Discharge: 07/14/23 Discharging Provider: Jolanta Mckenzie Primary Care Provider: Gustavo Salas Consults: 07/10/23 13:52 Consult to Occupational Therapy Routine Consult to Physical Therapy Routine Discharge Diagnosis (1) Fall: (2) Acute exacerbation of chronic obstructive pulmonary disease: (3) CAD (coronary artery disease): (4) UTI (urinary tract infection): (5) Umbilical hernia: Final Diagnosis Final Discharge Diagnosis: As above Summary Hospital Course Hospital course: Patient is a pleasant 77-year female with past medical history of coronary disease status post PCI, COPD, hypertension and other medical comorbidities. Presented to ER with complaint of generalized weakness and a fall leading to laceration on the left periorbital area. In the ER she was found to have cystitis with acute kidney injury. Patient was admitted started on IV antibiotic along with IV steroids for COPD exacerbation. Renal function is improved and Lasix has been resumed she was initially placed on hold. She did receive gentle hydration. Urine culture came back growing Proteus mirabilis which is pansensitive. No growth on blood cultures and sputum culture noted. While in the hospital patient complained of significant abdominal pain with worsening leukocytosis. She does have prior history of abdominal surgery and stat CT abdomen/pelvis was obtained was negative for acute abnormality. Noted to have multiple ventral hernias without any signs of obstruction. Also noted to have increased colonic stool and patient did have multiple bowel movements. She denies further abdominal pain with improved breathing. Physical therapy wasconsulted with recommendation for senior living facility which patient is refusing understanding the risk of fall. Her symptoms have improved as well as weakness and will be discharged home. Condition Condition at Discharge: Stable Status at Discharge Functional status at discharge: independent ambulation Time Spent with Patient Time spent providing/coordinating discharge services (# min): 38 Diagnostic Studies Completed and Pending Studies Pending studies at discharge: 07/10/23 12:04 Blood Culture Stat Preliminary micro results at discharge 07/10/23 12:15 Blood Culture - Preliminary Blood - Right Hand No Growth 3 Days 07/10/23 12:04 Blood Culture - Preliminary Blood - Left Antecubital No Growth 3 Days Labs on day of discharge: 07/14/23 10:51: POC Glucose 80 07/14/23 06:51: POC Glucose 97 07/14/23 06:50: PHA Creatinine Clear 42.83, Sodium 143, Potassium 4.2, Chloride 110 H, Carbon Dioxide 28.1, Anion Gap 9.1, BUN 24, Creatinine 1.10, Est GFR (CKD- EPI) 51.753, Glucose 84, Calcium 8.0 L 07/14/23 06:49: Corrected WBC 19.3 H, Uncorrected WBC Count 19.3 H, RBC 4.00, Hgb 10.5 L, Hct 33.6 L, MCV 84.0, MCH 26.2, MCHC 31.2 L, RDW 22.8 H, Plt Count 238, MPV 7.9, Neut % (Auto) 69.9, Lymph % (Auto) 22.1, [place] % (Auto) 7.3, Eos % (Auto) 0.4, Baso % (Auto) 0.3, Nucleat RBC Rel Count 0.1, Neut # (Auto) 13.5 H, Lymph # (Auto) 4.3, [place] # (Auto) 1.4 H, Eos # (Auto) 0.1, Baso # (Auto) 0.1, Platelet Estimate Normal, Plt Morphology Comment Normal, RBC Morphology N/A, Polychromasia Slight, Hypochromasia Slight, Anisocytosis Marked 07/13/23 21:03: POC Glucose 200 Exam Physical Exam Vital Signs: Temp Pulse Resp BP Pulse Ox O2 Del Method 97.8 F 83 18 109/72 95 Room Air 07/14/23 08:00 07/14/23 08:41 07/14/23 08:41 07/14/23 08:00 07/14/23 08:00 07/14/23 08:00 Const Orientation: alert, awake and oriented x3 Resp Effort & Inspection: normal respiratory effort and able to speak in complete sentences Auscultation: no rales, no rhonchi and no wheezes Cardio Rate: regular rate Rhythm: regular rhythm Heart Sounds: S1 normal and S2 normal GI Palpation: soft, not firm, no guarding and nontender Neuro General: patient alert, patient awake, patient oriented x3, moves all extremities and no focal motor deficits Cranial Nerves: CN's II-XII intact bilaterally Motor: muscle tone normal throughout and strength 5/5 throughout Extrem General: no calf tenderness and edema Laterality: bilaterally Psych Appearance: grossly normal Discharge Plan Discharge Plan Activity: Ambulate as Tolerated Diet: Low-Sodium and Low-Cholesterol Prescriptions: New prednisone 10 mg Tablet 20 mg PO DAILY 6 Days Qty: 12 0RF Taper: Prednisone Taper 20 mg Daily for 3 Days and 0 Hour 10 mg Daily for 3 Days and 0 Hour Rx Instructions: 20mg daily for 3 days then 10mg daily for 3 days cephalexin 500 mg tablet 500 mg PO BID 3 Days Qty: 6 0RF Continued atorvastatin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 12/26/22 19:36 Lymph % (Auto) 24.8 % (.) 12/26/22 19:36 [place] % (Auto) 10.1 % (.) 12/26/22 19:36 Eos % (Auto) 1.1 % (.) 12/26/22 19:36 Baso % (Auto) 0.5 % (.) 12/26/22 19:36 Nucleat RBC Rel Count 0.1 /100 WBC (0-0.5) 12/26/22 19:36 Neut # (Auto) 7.6 x10E3/uL (1.8-7.7) 12/26/22 19:36 Lymph # (Auto) 3.0 x10E3/uL (1.00-4.8) 12/26/22 19:36 [place] # (Auto) 1.2 x10E3/uL (0.0-0.8) H 12/26/22 19:36 Eos # (Auto) 0.1 x10E3/uL (0.0-0.45) 12/26/22 19:36 Baso # (Auto) 0.1 x10E3/uL (0.0-0.2) 12/26/22 19:36 Monocyte Dist Width 20.22 % (0.00-20.00) H 12/26/22 19:36 PT 14.5 Seconds (9.0-12.9) H 12/26/22 19:36 INR 1.3 12/26/22 19:36 APTT 30.8 Seconds (25.1-36.5) 12/26/22 19:36 PHA Creatinine Clear 37.20 12/26/22 19:36 Sodium 136 mmol/L (136-146) 12/26/22 19:36 Potassium 3.9 mmol/L (3.5-5.1) 12/26/22 19:36 Chloride 104 mmol/L (95-114) 12/26/22 19:36 Carbon Dioxide 25.8 mmol/L (22.0-30.0) 12/26/22 19:36 Anion Gap 10.1 mEq/L (6.0-15.0) 12/26/22 19:36 BUN 21 mg/dL (9-23) 12/26/22 19:36 Creatinine 1.22 mg/dL (0.44-1.03) H 12/26/22 19:36 Est GFR ( Amer) 52 mL/Min 12/26/22 19:36 Est GFR (Non-Af Amer) 43 mL/Min 12/26/22 19:36 Glucose 128 mg/dL (70-100) H 12/26/22 19:36 Calcium 9.0 mg/dL (8.2-10.2) 12/26/22 19:36 Troponin I High Sens 6 pg/mL (0-15) 12/26/22 19:36 B-Natriuretic Peptide 49.0 pg/mL (5-100) 12/26/22 19:36 A&P - Hospitalist Assessment/Plan (1) Fall: (2) Acute hip pain: (3) Inability to perform activities of daily living: (4) Physical deconditioning: Plan Acute problems Hip pain s/p 2020 L intertrochanteric fx repair -CT hip, left -Venous duplex US to bilat LE Generalized weakness, edema -PT/OT consults -Echo -Labs: CBC, BMP, B12/Folate -orthostatic vitals Pressure ulcer, stage II -Consult wound care Chronic problems Physical deconditioning -Needs eval for SNF placement. Pt needs further education on risks of current situation and lack of care. DVT prophylaxis: Heparain 5000u Diet: Regular Code status: Full Prognosis: fair Disposition: anticipated discharge to SNF Documented By: Jolanta Mckenzie MD 12/26/22 3653 Signed By: <Electronically signed by Jolanta Mckenzie MD> 12/27/2225 <Electronically signed by MD SEAN Mann> 12/27/[address] [facility] Work Phone: History and physical note Author Jolanta Mckenzie [facility] July 10, 2023 1:50pm Note Date/Time July 10, 2023 1:44pm [facility] [address] [place] [address] Hospitalist H&P Signed Patient: Gera Perdue MR#: [id number] : 1945 Acct:[id number] Age/Sex: 77 / F Adm Date: 3 Loc: Room: [address] [place] [address] Type: ADM IN Attending Dr: Jolanta Mckenzie MD Copies to: DO Jolanta Zambrano MD~ HPI DATE OF EXAMINATION: 07/10/23 CHIEF COMPLAINT: Generalized weakness and fall. HISTORY OF PRESENT ILLNESS: Patient is 77-year-old female with past medical history of coronary disease status post PCI, COPD not on home oxygen, hypertension, chronic disease stage III and CVA. Presented to ER with complaint of generalized weakness and fall earlier today. In the emergency room her labs showed WBC count of 21.3 with urine analysis suggestive of UTI. She was noted to have laceration on the left lateral periorbital area. CT C-spine showing vertebral body height loss and C7 with associated sclerosis suggesting a chronic process. CT head chest x-ray andleft hip x-ray negative for acute abnormality. On examination patient does not appear to be a good historian. She mention earlier today while cleaning in her trailer bent over her legs gave out leading to fall on her left side. She denies recent infection, fever, chills, chest pain, headache or dizziness. She did mention having dysuria with increased frequency. Also noted to have extensive excoriated lesions on both lower extremities with scabs patient mentioned having lot of fleas in her trailer leading to fleabites. In the ER noted to have blood pressure on the lower side and received 2 L normal saline bolus. On examination patient noted to have actively wheezing and appears tachypneic as well. Review of Systems Review of Systems All other systems reviewed & are negative unless noted below or in HPI [facility] Medical History Arthritis COPD (chronic obstructive pulmonary disease) Depression Diverticulitis GERD (gastroesophageal reflux disease) HLD (hyperlipidemia) HTN (hypertension) Intertrochanteric fracture of left hip Aug 2020 Kidney stone Pulmonary HTN Sleep apnea Umbilical hernia Surgical History History of back surgery History of colostomy History of colostomy reversal Hx of heart artery stent Family History Mother Bone cancer Sister Cancer Father Heart problem Social History Smoking Status: Former smoker Tobacco Type: cigarettes Substance Use Type: None Social History Comments: unknown, patient confused and alone Meds Medications and Allergies Allergies aspirin Adverse Reaction (Verified 07/10/23 09:34) Vomiting Home Medications acetaminophen 325 mg tablet 650 mg PO Q4H PRN Pain Scale 1 - 5 #0 tabs 09/21/20 [Rx Confirmed 07/10/23] alendronate 70 mg tablet 70 mg PO QWEEK 30 days #30 tabs 09/21/20 [Rx Confirmed 07/10/23] atorvastatin 40 mg tablet 40 mg PO QPM 30 days #30 tabs 09/21/20 [Rx Confirmed 07/10/23] budesonide 0.5 mg/2 mL suspension for nebulization 0.5 mg (2 mL) inhalation BID@0600,1800 30 days #100 mL 09/21/20 [Rx Confirmed 12/26/22] bupropion HCl 300 mg 24 hr tablet, extended release 300 mg PO QAM 30 days #30 tabs 09/21/20 [Rx Confirmed 07/10/23] cholecalciferol (vitamin D3) 25 mcg (1,000 unit) tablet 2,000 unit PO DAILY 30 days #30 tabs 09/21/20 [Rx Confirmed 07/10/23] ipratropium 0.5 mg-albuterol 3 mg (2.5 mg base)/3 mL nebulization soln 3 ml inhalation BID 3 days #250 mL 09/21/20 [Rx Confirmed 12/26/22] metoprolol succinate 50 mg tablet,extended release 24 hr 50 mg PO DAILY 30 days #30 tabs 09/21/20 [Rx Confirmed 07/10/23] pantoprazole 40 mg tablet,delayed release (Protonix) 40 mg PO DAILY 30 days #30 tabs 09/21/20 [Rx Confirmed 07/10/23] paroxetine HCl 40 mg tablet (Paxil) 40 mg PO QAM 30 days #30 tabs 09/21/20 [Rx Confirmed 07/10/23] pregabalin 75 mg capsule 75 mg PO BID 30 days #60 caps 09/21/20 [Rx Confirmed 07/10/23] albuterol sulfate 90 mcg/actuation aerosol inhaler 2 inh inhalation Q6H PRN bronchospasm 7 days #8 grams 05/31/22 [Rx Confirmed 07/10/23] ammonium lactate 12 % topical cream 1 applic topical BID 12/26/22 [History Confirmed 07/10/23] calcium 600 mg capsule 600 mg PO DAILY 12/26/22 [History Confirmed 07/10/23] calcium carbonate 500 mg calcium (1,250 mg) chewable tablet 500 mg PO DAILY 12/26/22 [History Confirmed 12/26/22] nystatin 100,000 unit/gram topical cream 1 applic topical BID 12/26/22 [History Confirmed 12/26/22] triamcinolone acetonide 0.1 % topical cream 1 applic topical BID 12/26/22 [History Confirmed 12/26/22] clopidogrel 75 mg tablet 75 mg PO DAILY #0 tabs 12/31/22 [Rx Confirmed 07/10/23] lisinopril 2.5 mg tablet 2.5 mg PO DAILY #0 tabs 12/31/22 [Rx Confirmed 07/10/23] furosemide 40 mg tablet 40 mg PO DAILY #3 tabs 06/17/23 [Rx Confirmed 07/10/23] Exam Physical Exam Vital Signs: Pulse Resp BP Pulse Ox O2 Del Method 72 18 107/59 L 96 Room Air 07/10/23 13:00 07/10/23 13:00 07/10/23 13:00 07/10/23 13:00 07/10/23 13:00 Const General: cooperative and disheveled Orientation: alert and awake Other: Does not appear to be a good historian. Answering appropriately. Appears to bein poor hygienic condition HEENT Other: Laceration on the left lateral eye area. Eyes Pupils: PERRL EOM: EOM intact bilaterally and No nystagmus Neck Neck: normal visual inspection and full ROM Resp Effort & Inspection: normal respiratory effort and tachypneic Auscultation: no rales, no rhonchi and wheezes expiratory wheezes Cardio Rate: regular rate Rhythm: regular rhythm Heart Sounds: S1 normal and S2 normal GI Palpation: soft, not firm, no guarding and nontender Neuro General: patient alert, patient awake, patient oriented x3, moves all extremities and no focal motor deficits Cranial Nerves: CN's II-XII intact bilaterally Motor: muscle tone normal throughout and strength 5/5 throughout Extrem General: edema Laterality: bilaterally Severity: 1+ Other: Multiple wounds on both lower extremities with scabs. No signs of active infection or bleeding. Results Lab Results Labs: Laboratory Last Values Corrected WBC 21.3 X10E3/uL (3.8-11.6) H 07/10/23 08:44 Uncorrected WBC Count 21.3 x10E3/uL (3.8-11.6) H 07/10/23 08:44 RBC 4.17 X10E6/uL (3.60-5.00) 07/10/23 08:44 Hgb 11.0 g/dL (11.8-15.4) L 07/10/23 08:44 Hct 34.4 % (34.0-46.4) 07/10/23 08:44 MCV 82.7 fl (80-100) 07/10/23 08:44 MCH 26.5 pg (24.7-34.3) 07/10/23 08:44 MCHC 32.0 g/dL (32.0-35.0) 07/10/23 08:44 RDW 22.2 % (11.9-15.3) H 07/10/23 08:44 Plt Count 250 x10E3/uL (150-450) 07/10/23 08:44 MPV 8.0 fl (6.3-10.7) 07/10/23 08:44 Neut % (Auto) 61.4 % (.) 07/10/23 08:44 Lymph % (Auto) 31.5 % (.) 07/10/23 08:44 [place] % (Auto) 6.5 % (.) 07/10/23 08:44 Eos % (Auto) 0.4 % (.) 07/10/23 08:44 Baso % (Auto) 0.2 % (.) 07/10/23 08:44 Nucleat RBC Rel Count 0.1 /100 WBC (0-0.5) 07/10/23 08:44 Neut # (Auto) 13.1 x10E3/uL (1.8-7.7) H 07/10/23 08:44 Lymph # (Auto) 6.7 x10E3/uL (1.00-4.8) H 07/10/23 08:44 [place] # (Auto) 1.4 x10E3/uL (0.0-0.8) H 07/10/23 08:44 Eos # (Auto) 0.1 x10E3/uL (0.0-0.45) 07/10/23 08:44 Baso # (Auto) 0.0 x10E3/uL (0.0-0.2) 07/10/23 08:44 Platelet Estimate Normal (Normal) 07/10/23 08:44 Plt Morphology Comment N/A 07/10/23 08:44 RBC Morphology N/A 07/10/23 08:44 Polychromasia Slight 07/10/23 08:44 Hypochromasia Slight 07/10/23 08:44 Poikilocytosis Slight 07/10/23 08:44 Anisocytosis Moderate 07/10/23 08:44 Microcytosis Moderate 07/10/23 08:44 Tear Drop Cells Slight 07/10/23 08:44 Ovalocytes Slight 07/10/23 08:44 Acanthocytes (Spur) Slight 07/10/23 08:44 PT 10.6 Seconds (9.0-12.9) 07/10/23 08:44 INR 0.9 07/10/23 08:44 PHA Creatinine Clear N/A 07/10/23 08:44 Sodium 143 mmol/L (136-145) 07/10/23 08:44 Potassium 3.9 mmol/L (3.5-5.1) 07/10/23 08:44 Chloride 105 mmol/L (98-107) 07/10/23 08:44 Carbon Dioxide 32.4 mmol/L (21.0-31.0) H 07/10/23 08:44 Anion Gap 9.5 mEq/L (6.0-15.0) 07/10/23 08:44 BUN 36 mg/dL (7-25) H 07/10/23 08:44 Creatinine 1.56 mg/dL (0.60-1.20) H 07/10/23 08:44 Est GFR (CKD-EPI) 34.030 mL/Min 07/10/23 08:44 Glucose 83 mg/dL (70-100) 07/10/23 08:44 Lactic Acid 1.6 mmol/L (0.5-2.2) 07/10/23 12:18 Calcium 8.9 mg/dL (8.6-10.3) 07/10/23 08:44 Troponin I High Sens 11.7 pg/mL (0.0-15.0) 07/10/23 08:44 B-Natriuretic Peptide 54.0 pg/mL (5-100) 07/10/23 08:44 Urine Color Yellow (Yellow) 07/10/23 08:44 Urine Appearance Cloudy (Clear) A 07/10/23 08:44 Urine pH 8.5 (5.0-9.0) 07/10/23 08:44 Ur Specific [place] 1.022 (1.001-1.030) 07/10/23 08:44 Urine Protein 30 mg/dL (Negative) H 07/10/23 08:44 Urine Glucose (UA) Normal mg/dL (Normal) 07/10/23 08:44 Urine Ketones Negative (Negative) 07/10/23 08:44 Urine Occult Blood Negative (Negative) 07/10/23 08:44 Urine Nitrite Positive (Negative) H 07/10/23 08:44 Urine Bilirubin Negative (Negative) 07/10/23 08:44 Urine Urobilinogen Normal mg/dL (Normal) 07/10/23 08:44 Ur Leukocyte Esterase 4+ (Negative) H 07/10/23 08:44 Urine RBC 3-4 /HPF (0-4) 07/10/23 08:44 Urine WBC Innumerable /HPF (0-4) H 07/10/23 08:44 Ur Squamous Epith Cells 1-2 /HPF (0-2) 07/10/23 08:44 Urine Bacteria 2+ (None Seen) H 07/10/23 08:44 Hyaline Casts 0-8 /LPF (0-8) 07/10/23 08:44 Assessment & Plan Assessment/Plan (1) Fall: (2) Acute exacerbation of chronic obstructive pulmonary disease: (3) CAD (coronary artery disease): (4) UTI (urinary tract infection): Plan Patient brought to the emergency room with generalized weakness and a fall. Noted to have UTI with COPD exacerbation and blood pressure on the lower side. Her creatinine is also elevated and will be admitted for further management. Hold Lasix and continue gentle hydration. Hold lisinopril as well. Start on steroids and bronchodilators for COPD exacerbation. Doxycycline obtain sputum for culture. Ceftriaxone started in the ER for UTI. Consult PT/OT. Continue other home medications including Plavix. DVT prophylaxis. IP vs OBS Justification Based on differential dx, clinical care plan, and risk of adverse events, if untreated, in my clinical judgement this patient requires an acute care setting as: INPATIENT because of an expectation of an over 2 midnight stay. Estimated length of stay (# of days): 2 Documented By: Jolanta Mckenzie MD 07/10/23 1340 Signed By: <Electronically signed by Jolanta Mckenzie MD> 07/10/[address] [facility] Work Phone: History general Narrative - Reported* Type Description Date Medical History GERD Medical History Constipation Medical History HTN Medical History HYPERLIPIDEMIA Medical History ANXIETY AND DEPRESSION Medical History COPD Medical History INSOMNIA Medical History OBESITY Medical History allergic rhinitis Medical History rt. shoulder fx Medical History lt. hip fracture Surgical History Stent placement in kidney 2011 Surgical History Stent removal in kidney 2012 Surgical History Low back surgery X4, 1994 Surgical History hernia repair Surgical History colostomy for severe diverticulosis, >10cm removed. no anastamosis Dr Fonseca, [facility]. Surgical History EGD Surgical History colostomy 01/07 per [facility] Surgical History Bowel resection with reversal o f colostomy 02-25-2015 Surgical History SKIN BIOPSY X 2 ON FACE 6 Surgical History left IM nailing 09-02-20 Surgical History left hip FX 10/2020 Hospitalization History 6 child births Hospitalization History See Above Hospitalization History Kidney stones Hospitalization History [facility] bowel obstruction 10/2019 Hospitalization History Fell/ UTI Hospitalization History [facility] pt fell left hip fr acture 10/2020 [facility] Other Hospital course Narrative No data available for this section [facility] Discharge instructions Additional Instructions Use the albuterol inhaler as prescribed here COPD exacerbation take prednisone as prescribed. Take Tylenol as needed for hip pain. Follow-up with your PCP for reevaluation in 5 to [address] Work Phone: Hospital Discharge instructions Additional Instructions SNF TO MANAGE: PT/OT to eval and treat Monitor VS per protocol Oxygen currently at 1.5l per NC *Wean off as tolerated Skin care TID: *theraworx protect to skin folds with redness, then apply nystatin powder Dressing change every 2 days to left ischuim stage 2 pressure injury: *clean wound with vashe, apply therahoney sheet, then polymem ag, secure with opsite Maintain high risk fall precautions Care to be managed by [facility] Work Phone: Hospital Discharge instructionsAmbulatory Orders* Initiate Home Health Time Frame: 1 Day, Location: Determined By Patient Additional Instructions Home Health to manage care: - Full code - PT/OT eval and treat - Routine vital signs - Medication management and education - Wipe BLE with Theraworx protect. RLE area of weeping- Xeroform gauze to the area. 4x4 gauze and secure with Conform. ISIDRO wraps to BLE. Change daily and prn -[facility] Work Phone: Hospital Discharge instructions Additional Instructions SNF TO MANAGE: PT/OT to eval and treat Monitor VS per protocol Monitor Neuro. assessment--Encephalopathy Monitor Urinary assessment and for increased signs of infection--UTI, Sepsis Monitor assessment--ARTURO Daily dressing change to left lower posterior leg abrasions: *Clean with NS and pat dry. Hydrogel to the wound bed. Top with Telfa. Secure with Conform and stockinette. Skin Care BID: Theraworx protect to bilateral abdominal and breast fold redness. Skin care every 3 days: Mepilex border foam to Coccyx for protection. Maintain high risk fall precautions Care to be managed by [facility] Work Phone: Hospital Discharge instructions No data available for this section [facility] filed[facility]ed in this encounter [facility] this [facility] filedocumented in this encounter [facility] on filedocumented in this encounter [facility] note Author Carla Hagan [facility] December 27, 2022 12:40pm Note Date/Time December 27, 2022 9:25 am [facility] [address] [place] [address] Hospitalist Progress Note Signed Patient: Gera Perdue MR#: [id number] : 1945 Acct:[id number] Age/Sex: 77 / F Adm Date: 3 Loc: 4N Room: 6I5561-7 Type: ADM IN Attending Dr: Carla Hagan MD Copies to: ~ Date of Service: 12/27/2022 Subjective Subjective Narrative: Patient reports she feels tired and weak this morning. She reports she continues to have left hip pain. She reports increased back pain and has history of chronic back pain. She reports she has had 4 back surgeries in the past. She reports she has had multiple falls at home over the last few months and worsening weakness over the past few days. She has also had increased swelling in her legs in the past few days. She most recently fell out of bed andhit her head on the nightstand. Denies loss of consciousness. She reports she uses a wheelchair and a walker at home and her boyfriend helps her get around. She is unable to complete her ADLs on her own. She receives home health twice aweek and home health nurse expressed concern that she is not able to adequately care for self. She is incontinent of urine and wears Depends. She reports she has had some pain with urination, but denies any hematuria. She is sometimes incontinent of stool since colostomy reversal. She has new bedsore that has notbeen evaluated by anyone yet. Patient seems unconcerned about many scattered scabs she attributes to fleas and cat scratches. These have been present for weeks to months. Patient is poor historian. Reports she has had chills over thepast few days. Reports increased fatigue and is dizzy at baseline. Denies chestpain or shortness of breath. Denies appetite change. She recently quit smoking a couple months ago--requires nicotine replacement. She reports she has had a cough since she stopped smoking. Exam Physical Exam Vital Signs: Temp Pulse Resp BP Pulse Ox O2 Del Method 97.7 F 80 16 114/67 94 L Room Air 12/27/22 07:39 12/27/22 07:39 12/27/22 07:39 12/27/22 07:39 12/27/22 07:39 12/27/22 07:39 Narrative: GENERAL: alert, oriented x3, appears stated age, comfortable HEENT: NC/AT, EOMI, PERRL, conjunctiva clear, no adenopathy, mucosa dry CARDIOVASCULAR: Regular rate and regular rhythm, no murmurs, symmetric palpable radial pulses RESPIRATORY: nonlabored work of breathing on room air, diffuse mild expiratory wheeze ABDOMEN: Soft, tender to palpation in the lower left and lower right quadrants, tenderness in the suprapubic region. Increased abdominal girth, normal bowel sounds BACK: No midline or paraspinal tenderness : Weepy, malodorous intertrigo. Powder in abdominal folds. 2-3cm Stage II ulcer with yellow base and red, erythematous borders on posterior L leg under gluteal fold near vulva EXTREMITIES: moving upper extremities well. Well-perfused. Lower extremities with moderate edema to bilateral feet and up to mid-avila. Knee brace present onL knee. ROM limited. Pt can abduct RLE and lift against gravity. Cannot lift or abduct LLE. Strength 4/5 and symmetric with extension against resistance andankle plantar flexion and dorsiflexion. SKIN: Many scattered scabs in various stages of healing across extremities in non-follicular pattern. largest is 1x2cm on R medial thigh with surrounding erythema NEURO: Cranial nerves grossly intact, no focal neurologic signs. Mild resting tremor to hands. PSYCHIATRIC: Good eye contact, appropriate mood and affect, cooperative Objective Lab Results 12/27/22 05:04 12/27/22 05:04 Meds Allergies and Active Meds Allergies aspirin Adverse Reaction (Verified 11/22/22 10:27) Vomiting Active Meds: Active Medications Generic Name Dose Route Start Last Admin Trade Name Freq PRN Reason Stop Dose Admin Acetaminophen 650 mg 12/26/22:41 12/27/22 03:37 Acetaminophen 325 Mg Tablet PO 12/26/23 23:40 650 mg Q6HR PRN Administration Pain Scale 1 - 3 or fever Albuterol 2.5 mg 12/27/22 00:12 Albuterol Neb 2.5 Mg/3 Ml Vial.Neb INHALATION 12/27/23 00:11 Q6H PRN bronchospasm Albuterol/Ipratropium 3 ml 12/27/22 09:00 Ipratropium/Albuterol 0.5-3 Mg 3 Ml Ampul.Neb INHALATION 12/27/23 08:59 BID JERILYN Atorvastatin Calcium 40 mg 12/27/22 21:00 Atorvastatin 40 Mg Tablet PO 12/27/23 20:59 QPM JERILYN Budesonide 0.5 mg 12/27/22 06:00 Budesonide 0.5 Mg/2 Ml Ampul.Neb INHALATION 12/27/23 05:59 BID@0600,1800 [facility] Bupropion HCl 300 mg 12/27/22 09:00 Bupropion 300 Mg Tab.Er.24h PO 12/27/23 08:59 QAM [facility] Calcium Carbonate 600 mg 12/27/22 09:00 Calcium Carbonate 500 Mg Tablet PO 12/27/23 08:59 DAILY [facility] Clopidogrel Bisulfate 75 mg 12/27/22 09:00 Clopidogrel Bisulfate 75 Mg Tablet PO 12/27/23 08:59 DAILY [facility] Heparin Sodium (Porcine) 5,000 unit 12/27/22 06:00 12/27/22 06:14 Heparin 5,000 Unit/Ml Vial SUBCUT 12/27/23 05:59 5,000 unit Q8HR JERILYN Administration Hydromorphone HCl 0.5 mg 12/27/22 03:58 Hydromorphone 0.5 Mg/0.5 Ml Syringe IV-PUSH Q4H PRN Pain Scale 8 - 10 Lisinopril 5 mg 12/27/22 09:00 Lisinopril 5 Mg Tablet PO 12/27/23 08:59 DAILY [facility] Metoprolol Succinate 50 mg 12/27/22 09:00 Metoprolol Succinate 50 Mg Tab.Er.24h PO 12/27/23 08:59 DAILY [facility] Nicotine 1 each 12/27/22 00:30 12/27/22 00:48 Nicotine Patch 14 Mg/24hr 1 Each Patch.Td24 TRANSDERML 01/08/23 09:01 1 each DAILY JERILYN Administration Nystatin 1 applic 12/27/22 00:30 12/27/22 00:48 Nystatin 100,000 Unit/Gram Powder 15 Gm Bottle TOPICAL 12/27/23 00:29 1 applic BID JERILYN Administration Ondansetron HCl 4 mg 12/26/22 23:41 Ondansetron 4 Mg/2 Ml Vial IV-PUSH 12/26/23 23:40 Q8H PRN Nausea And Vomiting Pantoprazole Sodium 40 mg 12/27/22 09:00 Pantoprazole 40 Mg Tablet. PO 12/27/23 08:59 DAILY JERILYN Paroxetine HCl 40 mg 12/27/22 09:00 Paroxetine 20 Mg Tablet PO 12/27/23 08:59 QAM JERILYN Pregabalin 75 mg 12/27/22 09:00 Pregabalin 75 Mg Capsule PO 06/25/23 08:59 BID JERILYN Sodium Chloride 0 ml 12/26/22 19:02 12/26/22 20:58 Sodium Chloride 0.9 % 10 Ml Syringe IV-PUSH 12/26/23 19:01 10 ml PRN PRN Administration Flush Sodium Chloride 0 ml 12/27/22 06:00 12/27/22 06:14 Sodium Chloride 0.9 % 10 Ml Syringe IV-PUSH 12/27/23 05:59 10 ml QSHIFT JERILYN Administration Tramadol HCl 50 mg 12/26/22 23:41 12/27/22 06:14 Tramadol 50 Mg Tablet PO 06/24/23 23:40 50 mg Q6H PRN Administration Pain Scale 4 - 7 Triamcinolone Acetonide 1 applic 12/27/22 09:00 Triamcinolone 0.1% Cream 15 Gm Tube TOPICAL 12/27/23 08:59 BID [facility] Vitamin D 50 mcg 12/27/22 09:00 Cholecalciferol 25 Mcg (1,000 Units) Tablet PO 12/27/23 08:59 DAILY [facility] A&P - Hospitalist Assessment/Plan (1) Fall: (2) Acute hip pain: (3) Inability to perform activities of daily living: (4) Physical deconditioning: Plan Patient is a 77-year-old female with past medical history of coronary disease status post PCI in 2019 with stent, COPD, hypertension, chronic kidney disease stage III, TIA, sleep apnea and moderate to severe pulmonary hypertension as perecho done in 2020.? Patient brought to the ER with complaint of left hip pain and multiple falls. This is second ER visit in 2 months for hip pain following left hip replacement. Acute problems UTI -UA positive for infection -Previous urine cultures grew pansensitive E. coli, group B streptococcus and Klebsiella pneumonia -Urine culture pending -Start Rocephin 1 g daily Hip pain s/p 2019 L intertrochanteric fx repair, left leg pain -CT hip, left negative for dislocation or fracture -Venous duplex US to bilat LE negative for DVT -X-ray left knee and ankle Generalized weakness, edema -CT of head, C-spine, chest, abdomen/pelvis negative for acute pathology -PT/OT consult -Echo consistent with moderate pulmonary hypertension. Reveals pulmonary pressure appears to be lower than previous study down to 48 mmHg from 58 mmHg. No significant valve disease. Normal left ventricular wall motion and thicknesswith mild diastolic dysfunction. Ejection fraction 55 to 60% -BMP unremarkable -CBC unremarkable except chronic anemia -B12 and folate unremarkable -BNP and troponin unremarkable -orthostatic vitals unremarkable Pressure ulcer, stage II -Consult wound care Chronic problems Physical deconditioning -Needs eval for SNF placement. Pt needs further education on risks of current situation and lack of care. Yeast infection under the breast -Nystatin cream as needed History of tobacco use. Recent cessation. -Apply nicotine patch as needed Coronary artery disease with stent placement in 2019 -Prescribed Brilinta at home but no evidence she picked it up from the pharmacy. Continue Plavix in the hospital. No chest pain or palpitation. No clinical evidence to suggest ACS or acute plaque rupture -Of note, patient is allergic to aspirin. Functional impairment in the debility. Multifactorial secondary to obesity, DJD, deconditioning and sedentary lifestyle. Patient may need short-term skilled versus rehabilitation Multiple other medical issues not listed above. The patient likely will requireadditional investigative and therapeutic intervention will be determined based on the clinical progression and follow-up test result. Some of which could be done in the outpatient setting by PCP in collaboration with other needed outpatient providers Social issues. Nursing reports stated that home situation is of questionable sanitary status. We will get adult protective services involved DVT prophylaxis: Heparin 5000u Diet: Regular Code status: Full Prognosis: fair Disposition: anticipated discharge to SNF Given her complaint of multiple falls with possible syncopal episode and multiple risk factors she will require more than 2 midnights of hospital stay for further work-up of an cardiac monitoring to rule out any cardiac arrhythmia.? Patient will likely require senior living facility on discharge. Documented By: Carla Hagan MD 12/27/22 0857 Signed By: <Electronically signed by Carla Hagan MD> 12/27/22 1240 <Electronically signed by DO SEAN Armas> 12/27/[address] [facility] Work Phone: Progress note Author Carla Hagan [facility] December 28, 2022 11:14am Note Date/Time December 28, 2022 9:27 am [facility] [address] [place] [address] Hospitalist Progress Note Signed Patient: Gera Perdue MR#: [id number] : 1945 Acct:[id number] Age/Sex: 77 / F Adm Date: 3 Loc: N Room: [address] [place] [address] Type: ADM IN Attending Dr: Carla Hagan MD Copies to: ~ Date of Service: 12/28/2022 Subjective Subjective Narrative: Patient reports she is feeling much better today. She was able to get some sleep and is eating breakfast currently. She reports her pain is much better today. Minimal pain in her left leg or hip. Mild pain in her left bottom wherea pressure ulcer is present. Denies any pain with urination. No fevers or chills. No dizziness. No chest pain or shortness of breath. No nausea vomiting or diarrhea. No abdominal pain or other complaints at this time. Exam Physical Exam Vital Signs: Temp Pulse Resp BP Pulse Ox O2 Del Method 98.9 F 80 16 130/78 92 L Room Air 12/28/22 08:00 12/28/22 08:11 12/28/22 08:11 12/28/22 08:00 12/28/22 08:00 12/28/22 08:00 Narrative: GENERAL: alert, oriented x3, appears stated age, comfortable, sitting up eating breakfast CARDIOVASCULAR: Regular rate and regular rhythm, no murmurs, symmetric palpable radial pulses RESPIRATORY: nonlabored work of breathing on room air, diffuse mild expiratory wheeze ABDOMEN: Soft, non-tender to palpation, Increased abdominal girth, normal bowel sounds BACK: No midline or paraspinal tenderness : Weepy, malodorous intertrigo improved from yesterday. Powder in abdominal folds. 2-3cm Stage II ulcer with yellow base and red, erythematous borders on posterior L leg under gluteal fold near vulva PureWick catheter in place draining clear urine. EXTREMITIES: moving upper extremities well. Well-perfused. Lower extremities with mild edema to bilateral feet and up to mid-avila. Knee brace present on L knee. Range of motion improved in bilateral lower extremities today. More motion in left leg than previous day, but still unable to lift her left leg completely. SKIN: Many scattered scabs in various stages of healing across extremities in non-follicular pattern. largest is 1x2cm on R medial thigh with surrounding erythema. Scab above left knee brace with some bleeding from irritation by brace. NEURO: Cranial nerves grossly intact, no focal neurologic signs. Mild resting tremor to hands. PSYCHIATRIC: Good eye contact, appropriate mood and affect, cooperative Objective Lab Results 12/28/22 05:00 12/28/22 05:00 Microbiology Results Microbiology 12/27/22 00:44 Urine - Voided Urine Culture - Preliminary Gram Negative Bacilli Meds Allergies and Active Meds Allergies aspirin Adverse Reaction (Verified 11/22/22 10:27) Vomiting Active Meds: Active Medications Generic Name Dose Route Start Last Admin Trade Name Freq PRN Reason Stop Dose Admin Acetaminophen 650 mg 12/26/22 23:41 12/27/22 03:37 Acetaminophen 325 Mg Tablet PO 12/26/23 23:40 650 mg Q6HR PRN Administration Pain Scale 1 - 3 or fever Albuterol 2.5 mg 12/27/22 00:12 Albuterol Neb 2.5 Mg/3 Ml Vial.Neb INHALATION 12/27/23 00:11 Q6H PRN bronchospasm Albuterol/Ipratropium 3 ml 12/28/22 09:00 12/28/22 08:11 Ipratropium/Albuterol 0.5-3 Mg 3 Ml Ampul.Neb INHALATION 12/28/23 08:59 3 ml BID JERILYN Administration Atorvastatin Calcium 40 mg 12/27/22 21:00 12/27/22 22:00 Atorvastatin 40 Mg Tablet PO 12/27/23 20:59 40 mg QPM JERILYN Administration Bupropion HCl 300 mg 12/27/22 09:00 12/27/22 09:03 Bupropion 300 Mg Tab.Er.24h PO 12/27/23 08:59 300 mg QAM JERILYN Administration Calcium Carbonate 600 mg 12/27/22 09:00 12/27/22 09:03 Calcium Carbonate 500 Mg Tablet PO 12/27/23 08:59 600 mg DAILY JERILYN Administration Clopidogrel Bisulfate 75 mg 12/27/22 09:00 12/27/22 09:03 Clopidogrel Bisulfate 75 Mg Tablet PO 12/27/23 08:59 75 mg DAILY JERILYN Administration Heparin Sodium (Porcine) 5,000 unit 12/27/22 06:00 12/28/22 05:25 Heparin 5,000 Unit/Ml Vial SUBCUT 12/27/23 05:59 5,000 unit Q8HR JERILYN Administration Hydromorphone HCl 0.5 mg 12/27/22 03:58 12/27/22 20:55 Hydromorphone 0.5 Mg/0.5 Ml Syringe IV-PUSH 0.5 mg Q4H PRN Administration Pain Scale 8 - 10 Ceftriaxone Sodium 1 gm in 50 mls @ 100 mls/hr 12/27/22 12:30 12/27/22 13:13 Rocephin IV 100 mls/hr Q24H JERILYN Administration Magnesium Sulfate 2 gm in 50 mls @ 25 mls/hr 12/28/22 06:28 12/28/22 06:35 Magnesium Sulf 2gm-*Swfi* IV 12/28/23 06:27 25 mls/hr DAILY PRN Administration Magnesium Level < 1.5 Lisinopril 5 mg 12/27/22 09:00 12/27/22 09:02 Lisinopril 5 Mg Tablet PO 12/27/23 08:59 5 mg DAILY JERILYN Administration Metoprolol Succinate 50 mg 12/27/22 09:00 12/27/22 09:02 Metoprolol Succinate 50 Mg Tab.Er.24h PO 12/27/23 08:59 50 mg DAILY JERILYN Administration Nicotine 1 each 12/27/22 00:30 12/27/22 09:04 Nicotine Patch 14 Mg/24hr 1 Each Patch.Td24 TRANSDERML 01/08/23 09:01 1 each DAILY JERILYN Administration Nystatin 1 applic 12/27/22 00:30 12/27/22 22:02 Nystatin 100,000 Unit/Gram Powder 15 Gm Bottle TOPICAL 12/27/23 00:29 1 applic BID JERILYN Administration Ondansetron HCl 4 mg 12/26/22 23:41 Ondansetron 4 Mg/2 Ml Vial IV-PUSH 12/26/23 23:40 Q8H PRN Nausea And Vomiting Pantoprazole Sodium 40 mg 12/27/22 09:00 12/27/22 09:04 Pantoprazole 40 Mg Tablet.Dr PO 12/27/23 08:59 40 mg DAILY JERILYN Administration Paroxetine HCl 40 mg 12/27/22 09:00 12/27/22 09:02 Paroxetine 20 Mg Tablet PO 12/27/23 08:59 40 mg QAM JERILYN Administration Potassium Chloride 20 meq 12/28/22 06:28 Potassium Chloride Er 20 Meq Tab.Er.Prt PO 12/28/23 06:27 DAILY PRN Hypokalemia Potassium Chloride 40 meq 12/28/22 06:28 Potassium Chloride Er 20 Meq Tab.Er.Prt PO 12/28/23 06:27 DAILY PRN Hypokalemia Pregabalin 75 mg 12/27/22 09:00 12/27/22 22:00 Pregabalin 75 Mg Capsule PO 06/25/23 08:59 75 mg BID JERILYN Administration Sodium Chloride 0 ml 12/26/22 19:02 12/26/22 20:58 Sodium Chloride 0.9 % 10 Ml Syringe IV-PUSH 12/26/23 19:01 10 ml PRN PRN Administration Flush Sodium Chloride 0 ml 12/27/22 06:00 12/28/22 05:26 Sodium Chloride 0.9 % 10 Ml Syringe IV-PUSH 12/27/23 05:59 10 ml QSHIFT JERILYN Administration Tramadol HCl 50 mg 12/26/22 23:41 12/28/22 05:24 Tramadol 50 Mg Tablet PO 06/24/23 23:40 50 mg Q6H PRN Administration Pain Scale 4 - 7 Triamcinolone Acetonide 1 applic 12/27/22 09:00 12/27/22 22:02 Triamcinolone 0.1% Cream 15 Gm Tube TOPICAL 12/27/23 08:59 1 applic BID JERILYN Administration Vitamin D 50 mcg 12/27/22 09:00 12/27/22 09:02 Cholecalciferol 25 Mcg (1,000 Units) Tablet PO 12/27/23 08:59 50 mcg DAILY JERILYN Administration A&P - Hospitalist Assessment/Plan (1) Fall: (2) Acute hip pain: (3) Inability to perform activities of daily living: (4) Physical deconditioning: Plan Patient is a 77-year-old female with past medical history of coronary disease status post PCI in 2019 with stent, COPD, hypertension, chronic kidney disease stage III, TIA, sleep apnea and moderate to severe pulmonary hypertension as ozziecho done in 2019.? Patient brought to the ER with complaint of left hip pain and multiple falls. This is second ER visit in 2 months for hip pain following left hip replacement. Acute problems UTI -UA positive for infection -Previous urine cultures grew pansensitive E. coli, group B streptococcus and Klebsiella pneumonia -Urine culture showed gram-negative bacilli -Continue Rocephin 1 g daily Hip pain s/p 2019 L intertrochanteric fx repair, left leg pain -CT hip, left negative for dislocation or fracture -Venous duplex US to bilat LE negative for DVT -X-ray left knee and ankle negative for dislocation or fracture Generalized weakness, edema -CT of head, C-spine, chest, abdomen/pelvis negative for acute pathology -PT/OT consult -Echo consistent with moderate pulmonary hypertension. Reveals pulmonary pressure appears to be lower than previous study down to 48 mmHg from 58 mmHg. No significant valve disease. Normal left ventricular wall motion and thicknesswith mild diastolic dysfunction. Ejection fraction 55 to 60% -BMP unremarkable -CBC unremarkable except chronic anemia -Magnesium low at 1.4. Was replaced this morning. -B12 and folate unremarkable -BNP and troponin unremarkable -orthostatic vitals unremarkable Pressure ulcer, stage II -Consult wound care Chronic problems Physical deconditioning -Continued eval for SNF placement. Pt needs further education on risks of current situation and lack of care. -[facility] plan for discharge at this time Yeast infection under the breast -Nystatin cream as needed History of tobacco use. Recent cessation. -Apply nicotine patch as needed Coronary artery disease with stent placement in 2019 -Prescribed Brilinta at home but no evidence she picked it up from the pharmacy. Continue Plavix in the hospital. No chest pain or palpitation. No clinical evidence to suggest ACS or acute plaque rupture -Of note, patient is allergic to aspirin. Functional impairment in the debility. Multifactorial secondary to obesity, DJD, deconditioning and sedentary lifestyle. Patient may need short-term skilled versus rehabilitation Multiple other medical issues not listed above. The patient likely will requireadditional investigative and therapeutic intervention will be determined based on the clinical progression and follow-up test result. Some of which could be done in the outpatient setting by PCP in collaboration with other needed outpatient providers Social issues. Adult Protective Services assures that home situation is okay. DVT prophylaxis: Heparin 5000u Diet: Regular Code status: Full Prognosis: fair Disposition: anticipated discharge to SNF Given her complaint of multiple falls with possible syncopal episode and multiple risk factors she will require more than 2 midnights of hospital stay for further work-up of an cardiac monitoring to rule out any cardiac arrhythmia.? Patient will likely require senior living facility on discharge. Patient is medically cleared for discharge pending placement approval. The patient would likely need to have additional work-up, investigation and therapeutic intervention but will be determined based on the clinical progression and follow-up test result Documented By: Carla Hagan MD 12/28/22 0918 Signed By: <Electronically signed by Carla Hagan MD> 12/28/22 1114 <Electronically signed by DO SEAN Armas> 12/28/[address] [facility] Work Phone: Progress note Author Carla Hagan [facility] December 29, 2022 10:00am Note Date/Time December 29, 2022 10:0 0am [facility] [address] [place] [address] Hospitalist Progress Note Signed Patient: Gera Perdue MR#: [id number] : 1945 Acct:[id number] Age/Sex: 77 / F Adm Date: 3 Loc: 4N Room: [address] [place] [address] Type: ADM IN Attending Dr: Carla Hagan MD Copies to: ~ Date of Service: 12/29/2022 Subjective Subjective Narrative: Following up on the patient. Patient is feeling better. She denies any new symptoms. Improvement of her pain and discomfort. No headaches, loss of conscious or seizure. No dysuria or hematuria. Patient is weak. Patient is chronically weak. She has a wheelchair at home. She has a walker. Exam Physical Exam Vital Signs: Temp Pulse Resp BP Pulse Ox O2 Del Method 98.2 F 78 20 105/66 91 L Room Air 12/29/22 03:49 12/29/22 08:49 12/29/22 08:49 12/29/22 03:49 12/29/22 08:12 12/29/22 03:49 Narrative: [pt is awake and alert. oriented to place, time and person. Morbidly obese HEENT: [place] conjunctiva and NL buccal mucosa Neck: Supple, no tenderness Endocrine: No Thyromegaly. Vascular: No JVD or carotid bruit. Lymphatic: No cervical lymphadenopathy. Chest: CTA no DTP. Heart RRR, no extra sound or murmur. Abd: Soft, no tenderness, no rebound and no rigidity. Increase abd girth therefore clinically I could not exclude the possibility of intra abd mass or organomegaly. LE: No cyanosis or clubbing, no varices or edema. Neuro: A A O. Nl speech, comprehension and attention. Symmetrical motor and tone. Moderate functional impairment. Patient needs assist standing up and ambulating. She blames it on having severe osteoarthritis involving her hips, knees and ankles. []] Objective Lab Results 12/28/22 05:00 12/28/22 05:00 Microbiology Results Microbiology 12/27/22 00:44 Urine - Voided Urine Culture - Final Escherichia coli Meds Allergies and Active Meds Allergies aspirin Adverse Reaction (Verified 11/22/22 10:27) Vomiting Active Meds: Active Medications Generic Name Dose Route Start Last Admin Trade Name Freq PRN Reason Stop Dose Admin Acetaminophen 650 mg 12/26/22 23:41 12/28/22 20:54 Acetaminophen 325 Mg Tablet PO 12/26/23 23:40 650 mg Q6HR PRN Administration Pain Scale 1 - 3 or fever Albuterol 2.5 mg 12/27/22 00:12 Albuterol Neb 2.5 Mg/3 Ml Vial.Neb INHALATION 12/27/23 00:11 Q6H PRN bronchospasm Albuterol/Ipratropium 3 ml 12/28/22 09:00 12/29/22 08:48 Ipratropium/Albuterol 0.5-3 Mg 3 Ml Ampul.Neb INHALATION 12/28/23 08:59 3 ml BID JERILYN Administration Atorvastatin Calcium 40 mg 12/27/22 21:00 12/28/22 20:54 Atorvastatin 40 Mg Tablet PO 12/27/23 20:59 40 mg QPM JERILYN Administration Bupropion HCl 300 mg 12/27/22 09:00 12/29/22 09:28 Bupropion 300 Mg Tab.Er.24h PO 12/27/23 08:59 300 mg QAM JERILYN Administration Calcium Carbonate 600 mg 12/27/22 09:00 12/29/22 09:27 Calcium Carbonate 500 Mg Tablet PO 12/27/23 08:59 600 mg DAILY JERILYN Administration Clopidogrel Bisulfate 75 mg 12/27/22 09:00 12/29/22 09:28 Clopidogrel Bisulfate 75 Mg Tablet PO 12/27/23 08:59 75 mg DAILY JERILYN Administration Heparin Sodium (Porcine) 5,000 unit 12/27/22 06:00 12/29/22 05:54 Heparin 5,000 Unit/Ml Vial SUBCUT 12/27/23 05:59 5,000 unit Q8HR JERILYN Administration Hydromorphone HCl 0.5 mg 12/27/22 03:58 12/29/22 05:54 Hydromorphone 0.5 Mg/0.5 Ml Syringe IV-PUSH 0.5 mg Q4H PRN Administration Pain Scale 8 - 10 Ceftriaxone Sodium 1 gm in 50 mls @ 100 mls/hr 12/27/22 12:30 12/28/22 12:30 Rocephin IV 100 mls/hr Q24H JERILYN Administration Magnesium Sulfate 2 gm in 50 mls @ 25 mls/hr 12/28/22 06:28 12/28/22 06:35 Magnesium Sulf 2gm-*Swfi* IV 12/28/23 06:27 25 mls/hr DAILY PRN Administration Magnesium Level < 1.5 Lisinopril 5 mg 12/29/22 09:57 Lisinopril 5 Mg Tablet PO 12/27/23 08:59 DAILY JERILYN Metoprolol Succinate 50 mg 12/27/22 09:00 12/29/22 09:27 Metoprolol Succinate 50 Mg Tab.Er.24h PO 12/27/23 08:59 50 mg DAILY JERILYN Administration Nicotine 1 each 12/27/22 00:30 12/29/22 09:27 Nicotine Patch 14 Mg/24hr 1 Each Patch.Td24 TRANSDERML 01/08/23 09:01 1 each DAILY JERILYN Administration Nystatin 1 applic 12/27/22 00:30 12/29/22 09:33 Nystatin 100,000 Unit/Gram Powder 15 Gm Bottle TOPICAL 12/27/23 00:29 1 applic BID JERILYN Administration Ondansetron HCl 4 mg 12/26/22 23:41 Ondansetron 4 Mg/2 Ml Vial IV-PUSH 12/26/23 23:40 Q8H PRN Nausea And Vomiting Pantoprazole Sodium 40 mg 12/27/22 09:00 12/29/22 09:27 Pantoprazole 40 Mg Tablet.Dr PO 12/27/23 08:59 40 mg DAILY JERILYN Administration Paroxetine HCl 40 mg 12/27/22 09:00 12/29/22 09:27 Paroxetine 20 Mg Tablet PO 12/27/23 08:59 40 mg QAM JERILYN Administration Potassium Chloride 20 meq 12/28/22 06:28 Potassium Chloride Er 20 Meq Tab.Er.Prt PO 12/28/23 06:27 DAILY PRN Hypokalemia Potassium Chloride 40 meq 12/28/22 06:28 Potassium Chloride Er 20 Meq Tab.Er.Prt PO 12/28/23 06:27 DAILY PRN Hypokalemia Pregabalin 75 mg 12/27/22 09:00 12/29/22 09:27 Pregabalin 75 Mg Capsule PO 06/25/23 08:59 75 mg BID JERILYN Administration Sodium Chloride 0 ml 12/26/22 19:02 12/26/22 20:58 Sodium Chloride 0.9 % 10 Ml Syringe IV-PUSH 12/26/23 19:01 10 ml PRN PRN Administration Flush Sodium Chloride 0 ml 12/27/22 06:00 12/29/22 06:50 Sodium Chloride 0.9 % 10 Ml Syringe IV-PUSH 12/27/23 05:59 10 ml QSHIFT JERILYN Administration Tramadol HCl 50 mg 12/26/22 23:41 12/28/22 05:24 Tramadol 50 Mg Tablet PO 06/24/23 23:40 50 mg Q6H PRN Administration Pain Scale 4 - 7 Triamcinolone Acetonide 1 applic 12/27/22 09:00 12/29/22 09:32 Triamcinolone 0.1% Cream 15 Gm Tube TOPICAL 12/27/23 08:59 1 applic BID JERILYN Administration Vitamin D 50 mcg 12/27/22 09:00 12/29/22 09:27 Cholecalciferol 25 Mcg (1,000 Units) Tablet PO 12/27/23 08:59 50 mcg DAILY JERILYN Administration A&P - Hospitalist Assessment/Plan (1) Fall: (2) Acute hip pain: (3) Inability to perform activities of daily living: (4) Physical deconditioning: Plan Patient is a 77-year-old female with past medical history of coronary disease status post PCI in 2019 with stent, COPD, hypertension, chronic kidney disease stage III, TIA, sleep apnea and moderate to severe pulmonary hypertension as per echo done in 2019.? Patient brought to the ER with complaint of left hip pain and multiple falls. This is second ER visit in 2 months for hip pain following left hip replacement. Acute problems UTI -UA positive for infection -Previous urine cultures grew pansensitive E. coli, group B streptococcus and Klebsiella pneumonia -Urine culture showed E. coli -Continue Rocephin 1 g daily Hip pain s/p 2019 L intertrochanteric fx repair, left leg pain -CT hip, left negative for dislocation or fracture -Venous duplex US to bilat LE negative for DVT -X-ray left knee and ankle negative for dislocation or fracture Generalized weakness, edema, deconditioning secondary to sedentary lifestyle, obesity and osteoarthritis -CT of head, C-spine, chest, abdomen/pelvis negative for acute pathology -PT/OT consult -Echo consistent with moderate pulmonary hypertension. Reveals pulmonary pressure appears to be lower than previous study down to 48 mmHg from 58 mmHg. No significant valve disease. Normal left ventricular wall motion and thickness with mild diastolic dysfunction. Ejection fraction 55 to 60% -BMP unremarkable -CBC unremarkable except chronic anemia -Magnesium low at 1.4. Was repleted. -B12 and folate unremarkable -BNP and troponin unremarkable -orthostatic vitals unremarkable Pressure ulcer, stage II -Consult wound care Chronic problems Physical deconditioning -Continued eval for SNF placement. Pt needs further education on risks of current situation and lack of care. -[facility] is plan for discharge at this time Yeast infection under the breast -Nystatin cream as needed History of tobacco use. Recent cessation. -Apply nicotine patch as needed Coronary artery disease with stent placement in 2019 -Prescribed Brilinta at home but no evidence she picked it up from the pharmacy. Continue Plavix in the hospital. No chest pain or palpitation. No clinical evidence to suggest ACS or acute plaque rupture -Of note, patient is allergic to aspirin. Functional impairment in the debility. Multifactorial secondary to obesity, DJD, deconditioning and sedentary lifestyle. Patient may need short-term skilled versus rehabilitation Multiple other medical issues not listed above. The patient likely will require additional investigative and therapeutic intervention will be determined based on the clinical progression and follow-up test result. Some of which could be done in the outpatient setting by PCP in collaboration with other needed outpatient providers Social issues. Adult Protective Services assures that home situation is okay. DVT prophylaxis: Heparin 5000u Diet: Regular Code status: Full Prognosis: fair Disposition: anticipated discharge to SNF Patient is medically cleared for discharge pending placement approval. The patient would likely need to have additional work-up, investigation and therapeutic intervention but will be determined based on the clinical progression and follow-up test result. Some of which could be done in the outpatient setting Documented By: Carla Hagan MD 12/29/22 0958 Signed By: <Electronically signed by Carla Hagan MD> 12/29/[address] [facility] Work Phone: Progress note Author Carla Hagan [facility] December 30, 2022 9:53am Note Date/Time December 30, 2022 9:53 am [facility] [address] [place] [address] Hospitalist Progress Note Signed Patient: Gera Perdue MR#: [id number] : 1945 Acct:[id number] Age/Sex: 77 / F Adm Date: 3 Loc: 4N Room: [address] [place] [address] Type: ADM IN Attending Dr: Carla Hagan MD Copies to: ~ Date of Service: 12/30/2022 Subjective Subjective Narrative: Patient is feeling well. No new symptoms. Patient stated that her pain in the left hip had resolved. No abdominal or chest pain. No cough or congestion. Noshortness of breath. Exam Physical Exam Vital Signs: Temp Pulse Resp BP Pulse Ox O2 Del Method 98.3 F 79 16 111/70 89 L Room Air 12/30/22 07:53 12/30/22 07:53 12/30/22 07:53 12/30/22 07:53 12/30/22 07:53 12/30/22 07:53 Narrative: [pt is awake and alert. oriented to place, time and person. Morbidly obese HEENT: [place] conjunctiva and NL buccal mucosa Neck: Supple, no tenderness Endocrine: No Thyromegaly. Vascular: No JVD or carotid bruit. Lymphatic: No cervical lymphadenopathy. Chest: CTA no DTP. Heart RRR, no extra sound or murmur. Abd: Soft, no tenderness, no rebound and no rigidity. Increase abd girth therefore clinically I could not exclude the possibility of intra abd mass or organomegaly. LE: No cyanosis or clubbing, no varices or edema. Neuro: A A O. Nl speech, comprehension and attention. Symmetrical motor and tone. Moderate functional impairment. Patient needs assist standing up and ambulating. She blames it on having severe osteoarthritis involving her hips, knees and ankles. []] Objective Lab Results 12/28/22 05:00 12/28/22 05:00 Microbiology Results Microbiology 12/27/22 00:44 Urine - Voided Urine Culture - Final Escherichia coli Meds Allergies and Active Meds Allergies aspirin Adverse Reaction (Verified 11/22/22 10:27) Vomiting Active Meds: Active Medications Generic Name Dose Route Start Last Admin Trade Name Freq PRN Reason Stop Dose Admin Acetaminophen 650 mg 12/26/22 23:41 12/28/22 20:54 Acetaminophen 325 Mg Tablet PO 12/26/23 23:40 650 mg Q6HR PRN Administration Pain Scale 1 - 3 or fever Albuterol 2.5 mg 12/27/22 00:12 Albuterol Neb 2.5 Mg/3 Ml Vial.Neb INHALATION 12/27/23 00:11 Q6H PRN bronchospasm Albuterol/Ipratropium 3 ml 12/28/22 09:00 12/30/22 07:36 Ipratropium/Albuterol 0.5-3 Mg 3 Ml Ampul.Neb INHALATION 12/28/23 08:59 3 ml BID JERILYN Administration Atorvastatin Calcium 40 mg 12/27/22 21:00 12/29/22 21:01 Atorvastatin 40 Mg Tablet PO 12/27/23 20:59 40 mg QPM JERILYN Administration Bupropion HCl 300 mg 12/27/22 09:00 12/30/22 08:06 Bupropion 300 Mg Tab.Er.24h PO 12/27/23 08:59 300 mg QAM JERILYN Administration Calcium Carbonate 600 mg 12/27/22 09:00 12/30/22 08:05 Calcium Carbonate 500 Mg Tablet PO 12/27/23 08:59 600 mg DAILY JERILYN Administration Clopidogrel Bisulfate 75 mg 12/27/22 09:00 12/30/22 08:05 Clopidogrel Bisulfate 75 Mg Tablet PO 12/27/23 08:59 75 mg DAILY JERILYN Administration Enoxaparin Sodium 40 mg 12/30/22 14:00 Enoxaparin 40 Mg/0.4 Ml Syringe SUBCUT 12/30/23 13:59 DAILY@1400 JERILYN Hydromorphone HCl 0.5 mg 12/27/22 03:58 12/29/22 12:30 Hydromorphone 0.5 Mg/0.5 Ml Syringe IV-PUSH 0.5 mg Q4H PRN Administration Pain Scale 8 - 10 Ceftriaxone Sodium 1 gm in 50 mls @ 100 mls/hr 12/27/22 12:30 12/29/22 13:21 Rocephin IV 100 mls/hr Q24H JERILYN Administration Magnesium Sulfate 2 gm in 50 mls @ 25 mls/hr 12/28/22 06:28 12/28/22 06:35 Magnesium Sulf 2gm-*Swfi* IV 12/28/23 06:27 25 mls/hr DAILY PRN Administration Magnesium Level < 1.5 Lisinopril 2.5 mg 12/30/22 09:00 12/30/22 08:05 Lisinopril 2.5 Mg Tablet PO 12/30/23 08:59 2.5 mg DAILY JERILYN Administration Metoprolol Succinate 50 mg 12/27/22 09:00 12/30/22 08:06 Metoprolol Succinate 50 Mg Tab.Er.24h PO 12/27/23 08:59 50 mg DAILY JERILYN Administration Nicotine 1 each 12/27/22 00:30 12/30/22 08:05 Nicotine Patch 14 Mg/24hr 1 Each Patch.Td24 TRANSDERML 01/08/23 09:01 1 each DAILY JERILYN Administration Nystatin 1 applic 12/27/22 00:30 12/29/22 21:02 Nystatin 100,000 Unit/Gram Powder 15 Gm Bottle TOPICAL 12/27/23 00:29 1 applic BID JERILYN Administration Ondansetron HCl 4 mg 12/26/22 23:41 Ondansetron 4 Mg/2 Ml Vial IV-PUSH 12/26/23 23:40 Q8H PRN Nausea And Vomiting Pantoprazole Sodium 40 mg 12/27/22 09:00 12/30/22 08:05 Pantoprazole 40 Mg Tablet. PO 12/27/23 08:59 40 mg DAILY JERILYN Administration Paroxetine HCl 40 mg 12/27/22 09:00 12/30/22 08:06 Paroxetine 20 Mg Tablet PO 12/27/23 08:59 40 mg QAM JERILYN Administration Potassium Chloride 20 meq 12/28/22 06:28 Potassium Chloride Er 20 Meq Tab.Er.Prt PO 12/28/23 06:27 DAILY PRN Hypokalemia Potassium Chloride 40 meq 12/28/22 06:28 Potassium Chloride Er 20 Meq Tab.Er.Prt PO 12/28/23 06:27 DAILY PRN Hypokalemia Pregabalin 75 mg 12/27/22 09:00 12/30/22 08:05 Pregabalin 75 Mg Capsule PO 06/25/23 08:59 75 mg BID JERILYN Administration Sodium Chloride 0 ml 12/26/22 19:02 12/26/22 20:58 Sodium Chloride 0.9 % 10 Ml Syringe IV-PUSH 12/26/23 19:01 10 ml PRN PRN Administration Flush Sodium Chloride 0 ml 12/27/22 06:00 12/30/22 06:11 Sodium Chloride 0.9 % 10 Ml Syringe IV-PUSH 12/27/23 05:59 10 ml QSHIFT JERILYN Administration Tramadol HCl 50 mg 12/26/22 23:41 12/29/22 18:42 Tramadol 50 Mg Tablet PO 06/24/23 23:40 50 mg Q6H PRN Administration Pain Scale 4 - 7 Triamcinolone Acetonide 1 applic 12/27/22 09:00 12/29/22 21:02 Triamcinolone 0.1% Cream 15 Gm Tube TOPICAL 12/27/23 08:59 1 applic BID JERILYN Administration Vitamin D 50 mcg 12/27/22 09:00 12/30/22 08:05 Cholecalciferol 25 Mcg (1,000 Units) Tablet PO 12/27/23 08:59 50 mcg DAILY JERILYN Administration A&P - Hospitalist Assessment/Plan (1) Fall: (2) Acute hip pain: (3) Inability to perform activities of daily living: (4) Physical deconditioning: Plan Patient is a 77-year-old female with past medical history of coronary disease status post PCI in 2019 with stent, COPD, hypertension, chronic kidney disease stage III, TIA, sleep apnea and moderate to severe pulmonary hypertension as per echo done in 2020.? Patient brought to the ER with complaint of left hip pain and multiple falls. This is second ER visit in 2 months for hip pain following left hip replacement. Acute problems UTI -UA positive for infection -Previous urine cultures grew pansensitive E. coli, group B streptococcus and Klebsiella pneumonia -Urine culture showed E. coli -Continue Rocephin 1 g daily Hip pain s/p 2019 L intertrochanteric fx repair, left leg pain, resolved. Patient denies any further leg pain -CT hip, left negative for dislocation or fracture -Venous duplex US to bilat LE negative for DVT -X-ray left knee and ankle negative for dislocation or fracture. Positive for osteoarthritis deformities Generalized weakness, functional impairment,, deconditioning secondary to sedentary lifestyle, obesity and osteoarthritis -CT of head, C-spine, chest, abdomen/pelvis negative for acute pathology -PT/OT consult -Echo consistent with moderate pulmonary hypertension. Reveals pulmonary pressure appears to be lower than previous study down to 48 mmHg from 58 mmHg. No significant valve disease. Normal left ventricular wall motion and thickness with mild diastolic dysfunction. Ejection fraction 55 to 60% -BMP unremarkable -CBC unremarkable except chronic anemia Plan is to discharge patient to senior living unit for short period of time for inpatient physical and Occupational Therapy -Hypomagnesemia, magnesium low at 1.4. Was repleted. Recheck level in AM. Check phosphorus level -B12 and folate unremarkable -BNP and troponin unremarkable -orthostatic vitals unremarkable Pressure ulcer, stage II -Consult wound care Chronic problems Yeast infection under the breast -Nystatin cream as needed History of tobacco use. Recent cessation. -Apply nicotine patch as needed Coronary artery disease with stent placement in 2019 -Prescribed Brilinta at home but no evidence she picked it up from the pharmacy. Continue Plavix in the hospital. No chest pain or palpitation. No clinical evidence to suggest ACS or acute plaque rupture -Of note, patient is allergic to aspirin. Social issues. Adult Protective Services assures that home situation is okay. DVT prophylaxis: Lovenox 40 mg daily Diet: Regular Code status: Full Prognosis: fair Disposition: anticipated discharge to SNF Patient is medically cleared for discharge pending placement approval. The patient would likely need to have additional work-up, investigation and therapeutic intervention but will be determined based on the clinical progression and follow-up test result. Some of which could be done in the outpatient setting Documented By: Carla Hagan MD 12/30/22 0950 Signed By: <Electronically signed by Carla Hagan MD> 12/30/[address] [facility] Work Phone: Progress note Author Jolanta Mckenzie [facility] July 11, 2023 12:47pm Note Date/Time July 11, 2023 10:10am [facility] [address] [place] [address] Hospitalist Progress Note Signed with Addenda Patient: Gera Perdue MR#: [id number] : 1945 Acct:[id number] Age/Sex: 77 / F Adm Date: 3 Loc: Room: [address] [place] [address] Type: ADM IN Attending Dr: Jolanta Mckenzie MD Copies to: ~ ADDENDUM1 Patient was personally seen by me on the day of encounter, reviewed her history and performed dai elements of exam and formulated the plan of care and confirmedthe resident/interns note below. Addendum Documented By: Jolanta Mckenzie MD 07/11/231246 Addendum Signed By: <Electronically signed by Jolanta Mckenzie MD> 07/11/231246 Date of Service: 07/11/2023 Subjective Subjective Narrative: Ms. Perdue was examined resting comfortably bedside this morning she is pleasant alert and oriented x3. She states she was able to eat and sleep just fine however complains of generalized abdominal tenderness/discomfort states that it resembles pain from prior cholecystectomy. She is somewhat of a poor historian tangential in nature unable to provide detailed ROS. She also complains of a right eyelid lag she states worsens when she rotates her head ipsilaterally. Patient needs multiple prompts to adhere to EOM exam. She deniesrecent infection, fever, chills, chest pain, headache or dizziness however mentions having dysuria with increased frequency. Also noted to have extensive excoriated lesions on both lower extremities with scabs patient mentioned havinglot of fleas in her trailer leading to fleabites. On examination patient noted to have improved wheezing and appears tachypnea. Exam Physical Exam Vital Signs: Temp Pulse Resp BP Pulse Ox O2 Del Method 97.9 F 81 20 147/80 H 96 Room Air 07/11/23 04:30 07/11/23 08:39 07/11/23 08:39 07/11/23 04:30 07/11/23 04:30 07/11/23 04:30 Const General: cooperative and disheveled Orientation: alert and awake Other: Does not appear to be a good historian. Answering appropriately. Appears to bein poor hygienic condition HEENT Head: normocephalic and atraumatic Mouth: oral mucosae normal Teeth and gingiva: other (No teeth) Eyes General: appearance normal, both eyes and all related structures Visual Rodriguez: normal visual rodriguez by confrontation Alignment and Position: alignment normal Periorbital: periorbital findings normal Eyelids: eyelids normal Conjunctivae: conjunctivae normal Sclera: sclerae normal Pupils: PERRL EOM: EOM intact bilaterally and No nystagmus Neck Neck: normal visual inspection and full ROM Resp Effort & Inspection: normal respiratory effort Auscultation: no rales, no rhonchi and wheezes expiratory wheezes Cardio Rate: regular rate Rhythm: regular rhythm Heart Sounds: S1 normal and S2 normal GI Palpation: soft, not firm, no guarding and nontender Auscultation: normal bowel sounds Neuro General: patient alert, patient awake, patient oriented x3, moves all extremities and no focal motor deficits Cranial Nerves: CN's II-XII intact bilaterally, PERRL, accomodation normal, ableto smile, able to blink, facial strength normal and hearing normal Motor: muscle tone normal throughout and strength 5/5 throughout Extrem General: edema Laterality: bilaterally Severity: 1+ Objective Lab Results 07/11/23 07:47 07/11/23 07:47 Meds Allergies and Active Meds Allergies aspirin Adverse Reaction (Verified 07/10/23 09:34) Vomiting Active Meds: Active Medications Generic Name Dose Route Start Last Admin Trade Name Freq PRN Reason Stop Dose Admin Acetaminophen 1,000 mg 07/10/23 13:51 Acetaminophen 500 Mg Tablet PO 07/09/24 13:50 Q6HR PRN Pain Scale 1 - 3 or fever Albuterol 2.5 mg 07/10/23 13:51 Albuterol Neb 2.5 Mg/3 Ml Vial.Neb INHALATION 07/09/24 13:50 Q3H PRN Shortness Of Breath Albuterol/Ipratropium 3 ml 07/10/23 16:00 07/11/23 08:39 Ipratropium/Albuterol 0.5-3 Mg 3 Ml Ampul.Neb INHALATION 07/09/24 15:59 3 ml QID.RESP JERILYN Administration Atorvastatin Calcium 40 mg 07/10/23 21:00 07/10/23 21:47 Atorvastatin 40 Mg Tablet PO 07/09/24 20:59 40 mg QPM JERILYN Administration Bupropion HCl 300 mg 07/11/23 09:00 Bupropion 300 Mg Tab.Er.24h PO 07/10/24 08:59 QAM JERILYN Clopidogrel Bisulfate 75 mg 07/11/23 09:00 Clopidogrel Bisulfate 75 Mg Tablet PO 07/10/24 08:59 DAILY JERILYN Doxycycline Hyclate 100 mg 07/10/23 21:00 07/10/23 21:47 Doxycycline Hyclate 100 Mg Tablet PO 100 mg BID JERILYN Administration Heparin Sodium (Porcine) 5,000 unit 07/10/23 14:00 07/11/23 05:56 Heparin 5,000 Unit/Ml Vial SUBCUT 07/09/24 13:59 5,000 unit Q8HR JERILYN Administration Sodium Chloride 1,000 mls @ 75 mls/hr 07/10/23 14:00 07/11/23 05:57 0.9% Sodium Chloride 1,000 Ml IV 07/09/24 13:59 75 mls/hr .[id number] JERILYN Administration Ceftriaxone Sodium 1 gm in 50 mls @ 100 mls/hr 07/11/23 11:00 Rocephin IV Q24H JERILYN Methylprednisolone Sodium Succinate 40 mg 07/10/23 14:00 07/11/23 05:56 Methylprednisolone Sod Succ 40 Mg/Ml Vial IV-PUSH 07/09/24 13:59 40 mg Q8HR JERILYN Administration Pantoprazole Sodium 40 mg 07/11/23 09:00 Pantoprazole 40 Mg Tablet. PO 07/10/24 08:59 DAILY JERILYN Paroxetine HCl 40 mg 07/11/23 09:00 Paroxetine 20 Mg Tablet PO 07/10/24 08:59 QAM JERILYN Pregabalin 75 mg 07/10/23 21:00 07/10/23 21:47 Pregabalin 75 Mg Capsule PO 01/06/24 20:59 75 mg BID JERILYN Administration Sodium Chloride 0 ml 07/10/23 09:28 Sodium Chloride 0.9 % 10 Ml Syringe IV-PUSH 07/09/24 09:27 PRN PRN Flush Sterile Water 1 ml 07/10/23 13:51 07/10/23 21:47 Water For Injection,Sterile 10 Ml Vial INJECTION 07/09/24 13:50 1 ml PRN PRN Administration Reconstitute methylPREDNISolone sod succ Tramadol HCl 50 mg 07/10/23 13:51 07/10/23 15:02 Tramadol 50 Mg Tablet PO 01/06/24 13:50 50 mg Q6H PRN Administration Pain Scale 4 - 7 A&P - Hospitalist Assessment/Plan (1) Fall: (2) Acute exacerbation of chronic obstructive pulmonary disease: (3) CAD (coronary artery disease): (4) UTI (urinary tract infection): (5) Umbilical hernia: Plan Patient brought to the emergency room with generalized weakness and a fall. Noted to have UTI with COPD exacerbation and blood pressure on the lower side. Her creatinine is also elevated and will be admitted for further management. Hold Lasix and continue gentle hydration. Hold lisinopril as well. Start on steroids and bronchodilators for COPD exacerbation. Doxycycline obtain sputum for culture. Ceftriaxone started in the ER for UTI. Consult PT/OT. Continue other home medications including Plavix. DVT prophylaxis. Patient complains of generalized abdominal discomfort. She is eating and voiding fine. Currently comfortable/pleasant. On exam there is palpable mass left of midline. No TTP. No sign of acute abdomen. CT abdomen pelvis performed December 2022 indicative of prior cholecystectomy with presumed surgical anastomosis involving rectosigmoid region with left paramidline ventral hernia/prior ostomy site. We will consider RUQ US if symptoms persist. Urine culture growing gram-negative bacilli with pending final sensitivity. No growth on blood cultures so far. Continue ceftriaxone and doxycycline. We will start on decreased dose of beta-marylu. Continue to hold lisinopril and Lasix for 1 more day. Renal function improving. Consult PT/OT. Documented By: Bhavesh Cristobal MD, RES 07/11/23 094 9 Signed By: <Electronically signed by MD SEAN Cristobal> 07/11/23 1010 <Electronically signed by Jolanta Mckenzie MD> 07/11/[address] [facility] Work Phone: Progress note Author Jolanta Mckenzie [facility] July 12, 2023 3:00pm Note Date/Time July 12, 2023 2:16pm [facility] [address] [place] [address] Hospitalist Progress Note Signed with Addenda Patient: Gera Perdue MR#: [id number] : 1945 Acct:[id number] Age/Sex: 77 / F Adm Date: 3 Loc: Room: [address] [place] [address] Type: ADM IN Attending Dr: Jolanta Mckenzie MD Copies to: ~ ADDENDUM1 Patient was personally seen by me on the day of encounter, reviewed her history and performed dai elements of exam and formulated the plan of care and confirmedthe resident/interns note below. Morning labs showing worsening leukocytosis and given her presentation of UTI with significant abdominal discomfort and prior history of abdominal surgery will obtain CT abdomen/pelvis to further evaluate. Renal function has improved and continue IV hydration. Continue to hold Lasix and resume lisinopril due to improvement in renal function. Increase dose of metoprolol. Continue Plavix, statin and bronchodilators. Heparin for DVT prophylaxis. Respiratory status isimproved and switch to oral prednisone. PT recommended senior living facility which patient is refusing with plan to go home with home health care. Addendum Documented By: Jolanta Mckenzie MD 07/12/23 1500 Addendum Signed By: <Electronically signed by Jolanta Mckenzie MD> 07/12/23 1500 Date of Service: 07/12/2023 Subjective Subjective Narrative: Ms. Perdue was examined resting comfortably bedside this morning she is pleasant alert and oriented x3. She states she was able to eat and sleep just fine and attests to some improvement of generalized abdominal tenderness/discomfort from yesterday. Patient mentation has improved somewhat and was able to providemore detailed ROS and does not require multiple prompts to complete physical exam compared to yesterday. She attests to improvement of right eyelid lag as well. She denies recent infection, fever, chills, chest pain, headache or dizziness however mentions having dysuria with increased frequency today, currently p.o on IVF. Also noted to have extensive excoriated lesions on both lower extremities with scabs in various stages patient mentioned having lot of fleas in her trailer leading to fleabites. On examination patient noted to have improved wheezing and appears tachypnea. Exam Physical Exam Vital Signs: Temp Pulse Resp BP Pulse Ox O2 Del Method 97.8 F 92 H 20 167/79 H 95 Room Air 07/12/23 11:13 07/12/23 12:17 07/12/23 12:17 07/12/23 11:13 07/12/23 11:13 07/12/23 11:13 Const General: cooperative Orientation: alert and awake Other: Does not appear to be a good historian. Answering appropriately. Appears to bein poor hygienic condition HEENT Head: normocephalic and atraumatic Mouth: oral mucosae normal Teeth and gingiva: other (No teeth) Eyes General: appearance normal, both eyes and all related structures Visual Rodriguez: normal visual rodriguez by confrontation Alignment and Position: alignment normal Periorbital: periorbital findings normal Eyelids: eyelids normal Conjunctivae: conjunctivae normal Sclera: sclerae normal Pupils: PERRL EOM: EOM intact bilaterally and No nystagmus Neck Neck: normal visual inspection and full ROM Resp Effort & Inspection: normal respiratory effort and tachypneic Auscultation: no rales, no rhonchi and wheezes expiratory wheezes Cardio Rate: regular rate Rhythm: regular rhythm Heart Sounds: S1 normal and S2 normal GI Palpation: soft, not firm, no guarding, mass (Left of midline, LLQ, firm, 8 cm x4 cm) and nontender Auscultation: normal bowel sounds Neuro General: patient alert, patient awake, patient oriented x3, moves all extremities and no focal motor deficits Cranial Nerves: CN's II-XII intact bilaterally, PERRL, accomodation normal, ableto smile, able to blink, facial strength normal and hearing normal Motor: muscle tone normal throughout and strength 5/5 throughout Extrem General: edema Laterality: bilaterally Severity: 1+ Objective Lab Results 07/12/23 07:16 07/12/23 08:53 Microbiology Results Microbiology 07/10/23 12:15 Blood - Right Hand Blood Culture - Preliminary No Growth 2 Days 07/10/23 12:04 Blood - Left Antecubital Blood Culture - Preliminary No Growth 2 Days 07/10/23 15:00 Sputum - Expectorated Aerobic Culture - Final 07/10/23 15:00 Sputum - Expectorated Gram Stain - Final 07/10/23 08:44 Urine - Clean-Voided Midstream Urine Culture - Final Proteus mirabilis Meds Allergies and Active Meds Allergies aspirin Adverse Reaction (Verified 07/10/23 09:34) Vomiting Active Meds: Active Medications Generic Name Dose Route Start Last Admin Trade Name Freq PRN Reason Stop Dose Admin Acetaminophen 1,000 mg 07/10/23 13:51 Acetaminophen 500 Mg Tablet PO 07/09/24 13:50 Q6HR PRN Pain Scale 1 - 3 or fever Albuterol 2.5 mg 07/10/23 13:51 Albuterol Neb 2.5 Mg/3 Ml Vial.Neb INHALATION 07/09/24 13:50 Q3H PRN Shortness Of Breath Albuterol/Ipratropium 3 ml 07/10/23 16:00 07/12/23 12:17 Ipratropium/Albuterol 0.5-3 Mg 3 Ml Ampul.Neb INHALATION 07/09/24 15:59 3 ml QID.RESP JERILYN Administration Atorvastatin Calcium 40 mg 07/10/23 21:00 07/11/23 20:16 Atorvastatin 40 Mg Tablet PO 07/09/24 20:59 40 mg QPM JERILYN Administration Bupropion HCl 300 mg 07/11/23 09:00 07/12/23 08:15 Bupropion 300 Mg Tab.Er.24h PO 07/10/24 08:59 300 mg QAM JERILYN Administration Clopidogrel Bisulfate 75 mg 07/11/23 09:00 07/12/23 08:15 Clopidogrel Bisulfate 75 Mg Tablet PO 07/10/24 08:59 75 mg DAILY JERILYN Administration Doxycycline Hyclate 100 mg 07/10/23 21:00 07/12/23 08:15 Doxycycline Hyclate 100 Mg Tablet PO 07/14/23 21:01 100 mg BID JERILYN Administration Heparin Sodium (Porcine) 5,000 unit 07/10/23 14:00 07/12/23 06:09 Heparin 5,000 Unit/Ml Vial SUBCUT 07/09/24 13:59 5,000 unit Q8HR JERILYN Administration Sodium Chloride 1,000 mls @ 75 mls/hr 07/10/23 14:00 07/12/23 10:04 0.9% Sodium Chloride 1,000 Ml IV 07/09/24 13:59 75 mls/hr .[id number] JREILYN Administration Ceftriaxone Sodium 1 gm in 50 mls @ 100 mls/hr 07/11/23 11:00 07/12/23 10:05 Rocephin IV 100 mls/hr Q24H JERILYN Administration Melatonin 3 mg 07/11/23 20:40 07/11/23 21:59 Melatonin 3 Mg Tablet PO 07/10/24 21:59 3 mg QHS PRN Administration Sleep Metoprolol Succinate 25 mg 07/12/23 09:00 07/12/23 08:15 Metoprolol Succinate 25 Mg Tab.Er.24h PO 07/11/24 08:59 25 mg DAILY JERILYN Administration Pantoprazole Sodium 40 mg 07/11/23 09:00 07/12/23 08:15 Pantoprazole 40 Mg Tablet.Dr PO 07/10/24 08:59 40 mg DAILY JERILYN Administration Paroxetine HCl 40 mg 07/11/23 09:00 07/12/23 08:15 Paroxetine 20 Mg Tablet PO 07/10/24 08:59 40 mg QAM JERILYN Administration Prednisone 40 mg 07/13/23 09:00 Prednisone 10 Mg Tablet PO 07/22/23 08:59 DAILY JERILYN Taper Pregabalin 75 mg 07/10/23 21:00 07/12/23 08:15 Pregabalin 75 Mg Capsule PO 01/06/24 20:59 75 mg BID JERILYN Administration Sodium Chloride 0 ml 07/10/23 09:28 07/11/23 22:02 Sodium Chloride 0.9 % 10 Ml Syringe IV-PUSH 07/09/24 09:27 10 ml PRN PRN Administration Flush Tramadol HCl 50 mg 07/10/23 13:51 07/11/23 20:16 Tramadol 50 Mg Tablet PO 01/06/24 13:50 50 mg Q6H PRN Administration Pain Scale 4 - 7 A&P - Hospitalist Assessment/Plan (1) Fall: (2) Acute exacerbation of chronic obstructive pulmonary disease: (3) CAD (coronary artery disease): (4) UTI (urinary tract infection): (5) Umbilical hernia: Plan Patient brought to the emergency room with generalized weakness and a fall. Noted to have UTI with COPD exacerbation and blood pressure on the lower side. Her creatinine is also elevated and will be admitted for further management. Patient complains of generalized flank and abdominal pain with generalized discomfort. She is eating, drinking and voiding fine. Currently comfortable/pleasant. Leukocytes up 21.9 (15.7) today patient is afebrile, hypertensive 167/79 pulse 97. On exam there is palpable mass left of midline. Continue to hold lisinopril and Lasix for 1 more day. Renal function improving. Gentle hydration. We will start on decreased dose of beta-marylu. Continue steroids and bronchodilators for COPD exacerbation. Continue ceftriaxone and doxycycline cultured Proteus Mirabilis sensitive to all. Sputum culture growing moderate normal respiratory kimberly. No growth on bloodcultures so far Consult PT/OT. Continue other home medications including Plavix. DVT prophylaxis. CT abdomen pelvis performed December 2022 indicative of prior cholecystectomy with presumed surgical anastomosis involving rectosigmoid region with left paramidline ventral hernia/prior ostomy site. Documented By: Bhavesh Cristobal MD, RES 07/12/23 135 3 Signed By: <Electronically signed by RES Bhavesh Cristobal> 07/12/23 1416 <Electronically signed by Jolanta Mckenzie MD> 07/12/[address] [facility] Work Phone: Progress note Author Jolanta Mckenzie [facility] July 13, 2023 1:59pm Note Date/Time July 13, 2023 10:40am [facility] [address] [place] [address] Hospitalist Progress Note Signed with Addenda Patient: Gera Perdue MR#: [id number] : 1945 Acct:[id number] Age/Sex: 77 / F Adm Date: 3 Loc: Room: 7J9386-3 Type: ADM IN Attending Dr: Jolanta Mckenzie MD Copies to: ~ ADDENDUM1 Patient was personally seen by me on the day of encounter, reviewed her history and performed dai elements of exam and formulated the plan of care and confirmedthe resident/interns note below. Patient denies having abdominal pain and had a bowel movement yesterday. CT scan did not show any acute abnormality. Continues to have leukocytosis but patient also on steroid. Discussed regarding senior living facility she has not decided yet. Give 1 dose of IV Lasix and resume oral Lasix from tomorrow. Addendum Documented By: Jolanta Mckenzie MD 07/13/23 7112 Addendum Signed By: <Electronically signed by Jolanta Mckenzie MD> 07/13/23 3975 Date of Service: 07/13/2023 Subjective Subjective Narrative: Ms. Perdue was examined resting comfortably seated upright in room chair this morning she is pleasant alert and oriented x3. She states she was able to eat and sleep just fine and attests to improvement of generalized abdominal tenderness/discomfort from yesterday. Patient mentation has improved, is more interactive and was able to provide more detailed ROS. She attests to resolution of right eyelid lag as well. She denies recent fever, chills, chest pain, headache or dizziness however mentions having dysuria with increased frequency today, currently p.o on IVF. Also noted to have extensive excoriated lesions on both lower extremities with scabs in various stages patient mentionedhaving lot of fleas in her trailer leading to fleabites. On examination patient noted to have continued wheezing and appears tachypnea on minimal exertion. Exam Physical Exam Vital Signs: Temp Pulse Resp BP Pulse Ox O2 Del Method 97.5 F L 87 18 139/83 95 Room Air 07/13/23 08:00 07/13/23 08:00 07/13/23 08:00 07/13/23 08:00 07/13/23 08:00 07/13/23 08:00 Const General: cooperative Orientation: alert and awake Other: Does not appear to be a good historian. Answering appropriately. Appears to bein poor hygienic condition HEENT Head: normocephalic and atraumatic Mouth: oral mucosae normal Teeth and gingiva: other (No teeth) Eyes General: appearance normal, both eyes and all related structures Visual Rodriguez: normal visual rodriguez by confrontation Alignment and Position: alignment normal Periorbital: periorbital findings normal Eyelids: eyelids normal Conjunctivae: conjunctivae normal Sclera: sclerae normal Pupils: PERRL EOM: EOM intact bilaterally and No nystagmus Neck Neck: normal visual inspection and full ROM Resp Effort & Inspection: normal respiratory effort and tachypneic Auscultation: no rales, no rhonchi and wheezes expiratory wheezes, lower bilaterally and upper bilaterally Cardio Rate: regular rate Rhythm: regular rhythm Heart Sounds: S1 normal and S2 normal GI Palpation: soft, not firm, no guarding, mass (Left of midline, LLQ, firm, 8 cm x4 cm) and nontender Auscultation: normal bowel sounds Neuro General: patient alert, patient awake, patient oriented x3, moves all extremities and no focal motor deficits Cranial Nerves: CN's II-XII intact bilaterally, PERRL, accomodation normal, ableto smile, able to blink, facial strength normal and hearing normal Motor: muscle tone normal throughout and strength 5/5 throughout Extrem General: edema Laterality: bilaterally Severity: 1+ Objective Lab Results 07/13/23 06:37 07/13/23 06:37 Microbiology Results Microbiology 07/10/23 12:15 Blood - Right Hand Blood Culture - Preliminary No Growth 2 Days 07/10/23 12:04 Blood - Left Antecubital Blood Culture - Preliminary No Growth 2 Days 07/10/23 15:00 Sputum - Expectorated Aerobic Culture - Final 07/10/23 15:00 Sputum - Expectorated Gram Stain - Final 07/10/23 08:44 Urine - Clean-Voided Midstream Urine Culture - Final Proteus mirabilis Meds Allergies and Active Meds Allergies aspirin Adverse Reaction (Verified 07/10/23 09:34) Vomiting Active Meds: Active Medications Generic Name Dose Route Start Last Admin Trade Name Jil PRN Reason Stop Dose Admin Acetaminophen 1,000 mg 07/10/23 13:51 07/12/23 20:24 Acetaminophen 500 Mg Tablet PO 07/09/24 13:50 1,000 mg Q6HR PRN Administration Pain Scale 1 - 3 or fever Albuterol 2.5 mg 07/10/23 13:51 Albuterol Neb 2.5 Mg/3 Ml Vial.Neb INHALATION 07/09/24 13:50 Q3H PRN Shortness Of Breath Albuterol/Ipratropium 3 ml 07/10/23 16:00 07/13/23 07:38 Ipratropium/Albuterol 0.5-3 Mg 3 Ml Ampul.Neb INHALATION 07/09/24 15:59 3 ml QID.RESP JERILYN Administration Atorvastatin Calcium 40 mg 07/10/23 21:00 07/12/23 20:25 Atorvastatin 40 Mg Tablet PO 07/09/24 20:59 40 mg QPM JERILYN Administration Bupropion HCl 300 mg 07/11/23 09:00 07/13/23 09:37 Bupropion 300 Mg Tab.Er.24h PO 07/10/24 08:59 300 mg QAM JERILYN Administration Clopidogrel Bisulfate 75 mg 07/11/23 09:00 07/13/23 09:37 Clopidogrel Bisulfate 75 Mg Tablet PO 07/10/24 08:59 75 mg DAILY JERILYN Administration Doxycycline Hyclate 100 mg 07/10/23 21:00 07/13/23 09:37 Doxycycline Hyclate 100 Mg Tablet PO 07/14/23 21:01 100 mg BID JERILYN Administration Heparin Sodium (Porcine) 5,000 unit 07/10/23 14:00 07/13/23 06:11 Heparin 5,000 Unit/Ml Vial SUBCUT 07/09/24 13:59 5,000 unit Q8HR JERILYN Administration Ceftriaxone Sodium 1 gm in 50 mls @ 100 mls/hr 07/11/23 11:00 07/12/23 10:05 Rocephin IV 100 mls/hr Q24H JERILYN Administration Lisinopril 5 mg 07/13/23 09:00 07/13/23 09:37 Lisinopril 5 Mg Tablet PO 07/12/24 08:59 5 mg DAILY JERILYN Administration Melatonin 3 mg 07/11/23 20:40 07/12/23 21:34 Melatonin 3 Mg Tablet PO 07/10/24 21:59 3 mg QHS PRN Administration Sleep Metoprolol Succinate 50 mg 07/13/23 09:00 07/13/23 09:37 Metoprolol Succinate 50 Mg Tab.Er.24h PO 07/12/24 08:59 50 mg DAILY JERILYN Administration Pantoprazole Sodium 40 mg 07/11/23 09:00 07/13/23 09:37 Pantoprazole 40 Mg Tablet.Dr PO 07/10/24 08:59 40 mg DAILY JERILYN Administration Paroxetine HCl 40 mg 07/11/23 09:00 07/13/23 09:38 Paroxetine 20 Mg Tablet PO 07/10/24 08:59 40 mg QAM JERILYN Administration Prednisone 40 mg 07/13/23 09:00 09/16/23 09:38 Prednisone 10 Mg Tablet PO 07/22/23 08:59 40 mg DAILY JERILYN Administration Taper Pregabalin 75 mg 07/10/23 21:00 07/13/23 09:37 Pregabalin 75 Mg Capsule PO 01/06/24 20:59 75 mg BID JERILYN Administration Sodium Chloride 0 ml 07/10/23 09:28 07/11/23 22:02 Sodium Chloride 0.9 % 10 Ml Syringe IV-PUSH 07/09/24 09:27 10 ml PRN PRN Administration Flush Tramadol HCl 50 mg 07/10/23 13:51 07/12/23 15:25 Tramadol 50 Mg Tablet PO 01/06/24 13:50 50 mg Q6H PRN Administration Pain Scale 4 - 7 A&P - Hospitalist Assessment/Plan (1) Fall: (2) Acute exacerbation of chronic obstructive pulmonary disease: (3) CAD (coronary artery disease): (4) UTI (urinary tract infection): (5) Umbilical hernia: Plan Patient brought to the emergency room with generalized weakness and a fall. Noted to have UTI with COPD exacerbation and blood pressure on the lower side. Creatinine improved and will be admitted for further management of respiratory symptoms. Now resolved flank and abdominal pain with generalized discomfort. She is eating, drinking and voiding fine comfortable/pleasant overall. Patient is baseline tachypneic with shortness of breath on minimal exertion however saturates fine. CT abdomen pelvis with contrast showed mild bibasilar parenchymal changes and trace amount of pleural fluid on left, will discontinue IVF, continue antimicrobial therapy and diurese IVP Lasix 20 mg x1. Patient is afebrile, mildly hypertensive 139/83 pulse 87. Leukocytes 21.7 (21.9) today most likely from steroids. On exam audible expiratory wheeze. There is palpable mass left of midline with bowel sounds. Continue to hold lisinopril and Lasix for 1 more day. Renal function improved. Oral hydration. We will continue on decreased dose of beta-marylu. Continue steroids and bronchodilators for COPD exacerbation. Continue ceftriaxone and doxycycline cultured Proteus Mirabilis sensitive to all. Sputum culture growing moderate normal respiratory kimberly. No growth on blood cultures so far Consult PT/OT. Continue other home medications including Plavix. DVT prophylaxis. CT 07/12 moderate atherosclerotic disease, no bowel or urinary tract obstruction,left renal cortical scarring, multiple ventral hernias with largest at the left lower abdomen containing nondistended small bowel and colon with increased colonstool. CT abdomen pelvis performed December 2022 indicative of prior cholecystectomy with presumed surgical anastomosis involving rectosigmoid region with left paramidline ventral hernia/prior ostomy site. Documented By: Bhavesh Cristobal MD, RES 07/13/23 102 3 Signed By: <Electronically signed by RES Bhavesh Cristobal> 07/13/23 1040 <Electronically signed by Jolanta Mckenzie MD> 07/13/[address] [facility] Work Phone: Progress note No data available for this section [facility] Summary Purpose Family History No Family History Records Found Relationship Condition Age at Onset Recorded Date/T maxwell Not Specified Malignant neoplasm of bone Unknown sister Malignant neoplasm Unknown father Heart problem Unknown Relationship Condition Age at Onset Recorded Date/T maxwell Not Specified Malignant neoplasm of bone Unknown sister Malignant neoplasm Unknown father Heart problem Unknown brother Hypertension Unknown daughter Heart disease Unknown Hypertension Unknown Unknown Malignant neoplasm Unknown father Family history of mental disorder Unknown family member Unknown Not Specified Unknown sister Heart disease Unknown Family history of co ronary artery bypass graft Unknown Advance Directives No Advanced Directives Records FoundDocuments on File Type Date Recorded 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 [employer]orer [employer] Expl anation Advance Directives and Living Will Power of Plastic And Reconstructive Surgeon Latest Code Status on File Code Status Date Activated Date Inactivated Comments Full Code 08/02/2019 12:07 AM Advance Directive Response Recorded Date/ Time Advance Directives Yes May 13 2:57pm Advance Directive Response Recorded Date/ Time Advance Directives Yes May 13 1:57pm Documents on File Type Date Recorded Patient [employer] Expl anation DNR Physician Order 10/29/2023 8:25 AM Durable Power of Plastic And Reconstructive Surgeon 10/29/2023 6:51 AM Latest Code Status on File Code Status Date Activated Date Inactivated Comments DNR Comfort Care Arrest (DNR -CCA) [place] 10/11/2023 11:48 AM 10/23/2023 1:09 PM Code Status History Code Status Date Activated Date Inactivated Comments Full Code 10/05/2023 8:00 PM 10/11/2023 11:48 AM Hospital Course * Ellen Gonzalez MD - 08/04/2019 1:39 PM EDT [facility] IN-PATIENT SERVICE [facility] Discharge Summary Patient ID: Gera Perdue : 1945 ACCOUNT: [id number] Patient's PCP: Physician Generic (Inactive) Admit Date: 08/01/2019 Discharge Date: 08/04/2019 Length of Stay: 3 Code Status: Full Code Admitting Physician: Verenice Chilel MD Discharge Physician: Ellen Gonzalez MD Active Discharge Diagnoses: Hospital Problem Lists: Principal Problem: Small bowel obstruction (HCC) Active Problems: Longstanding persistent atrial fibrillation Anticoagulated CAD (coronary artery disease) Mixed hyperlipidemia Essential hypertension Status post Aman procedure (HCC) Resolved Problems: * No resolved hospital problems. * Admission Condition: good Discharged Condition: good Hospital Stay: Hospital Course: Ms. Perdue is a 73 yr old female who initially presented to OSH with complaints of ABD pain and dry heaves x1 day. CT ABD at outlying reveals: multiple loops of mild to moderate dilated fluid-filledsmall bowel with significantly reduced caliber distal small bowel concerning for a partial distal small bowel obstruction; supraumbilical fat-containing hernia, left periumbilical fat- containing hernia, larger left lateral incisional hernia at the site of the prior colostomy. Admitted for treatmentwith NGT, bowel rest. Significant therapeutic interventions: 1. SBO. Treated with bowel rest and NGT. Resolved. Tolerating regular diet. 2. CAD s/p stenting. No active chest pain. Continue ASA, Brilinta 3. HTN. Controlled. Continue Toprol 50 mg 4. HLD. Continue Lipitor 5. DC planning - ambulate with PT. discharge to home possible today Significant Diagnostic Studies: Labs / Micro: CBC: Lab Results Component Value Date WBC 7.5 08/04/2019 RBC 3.58 08/04/2019 HGB 9.9 08/04/2019 HCT 32.7 08/04/2019 MCV 91.3 08/04/2019 MCH 27.7 08/04/2019 MCHC 30.3 08/04/2019 RDW 15.0 08/04/2019 PLT 184 08/04/2019 BMP: Lab Results Component Value Date GLUCOSE 78 08/03/2019 NA 142 08/03/2019 K 3.9 08/03/2019 CL 108 08/03/2019 CO2 22 08/03/2019 ANIONGAP 12 08/03/2019 BUN 11 08/03/2019 CREATININE 0.72 08/03/2019 BUNCRER NOT REPORTED 08/03/2019 CALCIUM 8.3 08/03/2019 LABGLOM >60 08/03/2019 GFRAA >60 08/03/2019 GFR 08/03/2019 GFR NOT REPORTED 08/03/2019 Radiology: Xr Abdomen (kub) (single Ap View) Result Date: 08/03/2019 Nonspecific bowel gas pattern. Xr Abdomen For Ng/og/ne Tube Placement Result Date: 08/02/2019 The tip of the enteric tube is in the stomach though the proximal side hole is in the esophagus. The tube should be advanced 4 cm. Consultations: Consults: Final Specialist Recommendations/Findings: IP CONSULT TO GENERAL SURGERY The patient was seen and examined on day of discharge and this discharge summary is in conjunction with any daily progress note from day of discharge. Discharge plan: Disposition: Home Physician Follow Up: PCP in 1 weeks Requiring Further Evaluation/Follow Up POST HOSPITALIZATION/Incidental Findings: Diet: regular diet Activity: As tolerated Instructions to Patient: Increase plant base food, no process food and decrease animal product Discharge Medications: Medication List CONTINUE taking these medications atorvastatin 20 MG tablet Commonly known as: LIPITOR metoprolol 100 MG tablet Commonly known as: LOPRESSOR pantoprazole 40 MG tablet Commonly known as: PROTONIX PARoxetine 40 MG tablet Commonly known as: PAXIL risperiDONE 2 MG tablet Commonly known as: RISPERDAL ticagrelor 90 MG Tabs tablet Commonly known as: BRILINTA STOP taking these medications mesalamine 4 g enema Commonly known as: ROWASA ASK your doctor about these medications lisinopril 40 MG tablet Commonly known as: PRINIVIL;ZESTRIL Time Spent on discharge is 20 mins in patient examination, evaluation, counseling as well as medication reconciliation, prescriptions for required medications, discharge plan and follow up. Electronically signed by Ellen Gonzalez MD 08/04/2019 1:[address] Physician Ng (Inactive) for the opportunity to be involved in this patient's care. documented in this encounter Discharge Instructions * Discharge Instr - MARGAUX* Ellen Gonzalez MD - 08/02/2019 6:16 PM EDT Continuity of Care Form Patient Name: Gera Perdue : 1945 Admit date: 08/01/2019 Discharge date: 08/04/2019 Code Status Order: Full Code Advance Directives: Advance Care Flowsheet Documentation Date/Time Healthcare Directive Type of Healthcare Directive Copy in Chart Healthcare Agent Appointed Healthcare Agent's Name Healthcare Agent's Phone Number 08/02/19 0020 No, patient does not have an advance directive for healthcare treatment -- -- -- -- -- Admitting Physician: Verenice Chilel MD PCP: Physician Generic (Inactive) Discharging Nurse: LASHAY Hall Discharging [facility] Unit/Room#: 0236/0236-01 Discharging Unit Emergency Contact: Extended Emergency Contact Information Primary Emergency Contact: Rebecca George Relation: Grandchild Secondary Emergency Contact: Alethea Huerta Relation: Child Past Surgical History: Past Surgical History: Procedure Laterality Date BACK SURGERY CHOLECYSTECTOMY COLON SURGERY 01/14/11 sigmoid colectomy with colostomy takedown, splenic flexure COLONOSCOPY 01/21/12 Immunization History: There is no immunization history on file for this patient. Active Problems: Patient Active Problem List Diagnosis Code Small bowel obstruction (HCC) K56.609 Longstanding persistent atrial fibrillation I48.11 Anticoagulated Z79.01 CAD (coronary artery disease) I25.10 Mixed hyperlipidemia E78.2 Essential hypertension I10 Status post Aman procedure (HCC) Z93.3 Isolation/Infection: Isolation No Isolation Nurse Assessment: Last Vital Signs: BP (!) 161/69 Pulse 78 Temp 97.8 F (36.6 C) (Oral) Resp 18 Ht 5' 1 (1.549 m) Wt 182 lb 4 oz (82.7 kg) SpO2 92% BMI 34.44 kg/m Last documented pain score (0-10 scale): Pain Level: 5 Last Weight: Wt Readings from Last 1 Encounters: 08/02/19 182 lb 4 oz (82.7 kg) Mental Status: oriented and alert IV Access: - None Nursing Mobility/ADLs: Walking Assisted with walker Transfer Assisted Bathing Assisted Dressing Assisted Toileting Assisted Feeding Independent Manufacturing Engineering Professor Independent Med Delivery whole Wound Care Documentation and Therapy: none Elimination: Continence: Bowel: Yes; stress incontinence at times Bladder: Yes Urinary Catheter: None Colostomy/Ileostomy/Ileal Conduit: No Date of Last BM: 08/04/2019 Intake/Output Summary (Last 24 hours) at 08/04/2019 1351 Last data filed at 08/04/2019 1311 Gross per 24 hour Intake 1239 ml Output 300 ml Net 939 ml I/O last 3 completed shifts: In: 1387 [P.O.:148; I.V.:1239] Out: 150 [Urine:100; Emesis/NG output:50] Safety Concerns: None Impairments/Disabilities: None Nutrition Therapy: Current Nutrition Therapy: - Oral Diet: Full Liquid Routes of Feeding: Oral Liquids: No Restrictions Daily Fluid Restriction: no Last Modified Barium Swallow with Video (Video Swallowing Test): not done Treatments at the Time of Hospital Discharge: Respiratory Treatments: see MAR Oxygen Therapy: is not on home oxygen therapy. Ventilator: - No ventilator support Rehab Therapies: Physical Therapy and Occupational Therapy Weight Bearing Status/Restrictions: No weight bearing restirctions Other Medical Equipment (for information only, NOT a DME order): walker, bath bench and bedside commode Other Treatments: none Patient's personal belongings (please select all that are sent with patient): None RN SIGNATURE: MANAGEMENT/SOCIAL WORK SECTION Inpatient Status Date: 08/01/2019 Readmission Risk Assessment Score: Readmission Risk Risk of Unplanned Readmission: 10 Discharging to Facility/ Agency Name: Address: Phone: Fax: Dialysis Facility (if applicable) Name: Address: Dialysis Schedule: Phone: Fax: [employer] signature: {Esignature:[id number]} PHYSICIAN SECTION Prognosis: Good Condition at Discharge: Stable Rehab Potential (if transferring to Rehab): Good Recommended Labs or Other Treatments After Discharge: Physician Certification: I certify the above information and transfer of Gera Perdue is necessary for the continuing treatment of the diagnosis listed and that she requires Home Care for less 30 days. Update Admission H&P: No change in H&P PHYSICIAN SIGNATURE: * Attachments The following attachments cannot be sent through Care Everywhere. * Low-Fiber Diet (Tamazight) documented in this encounter History of Present Illness * Ellen Gonzalez MD - 08/04/2019 10:03 AM EDT [facility] IN-PATIENT SERVICE [facility] Progress Note 08/04/2019 10:03 AM Name: Gera Perdue Acct: [id number] Room: 0236/0236-01 Day: 3 Admit Date: 08/01/2019 11:58 PM PCP: Physician Generic (Inactive) Code Status: Full Code Subjective: C/C: N.V, abdominal pain Interval History Status: improved. Doing well No N/V. Tolerating dinner and breakfast. Had BM last night but none today Brief History: Ms. Perdue is a 73 yr old female who initially presented to OSH with complaints of ABD pain and dry heaves x1 day. CT ABD at outlying reveals: multiple loops of mild to moderate dilated fluid-filledsmall bowel with significantly reduced caliber distal small bowel concerning for a partial distal small bowel obstruction; supraumbilical fat-containing hernia, left periumbilical fat- containing hernia, larger left lateral incisional hernia at the site of the prior colostomy. Admitted for treatmentwith NGT, bowel rest. Review of Systems: Review of Systems Constitutional: Negative for chills, diaphoresis and fever. HENT: Negative for congestion. Eyes: Negative for visual disturbance. Respiratory: Negative for cough, chest tightness, shortness of breath and wheezing. Cardiovascular: Negative for chest pain, palpitations and leg swelling. Gastrointestinal: Positive for abdominal pain (epigastric pain with orage juice). Negative for blood in stool, constipation, diarrhea, nausea and vomiting. Genitourinary: Negative for difficulty urinating. Neurological: Negative for dizziness, weakness, light-headedness, numbness and headaches. All other systems reviewed and are negative. Medications: Allergies: No Known Allergies Current Meds: Scheduled Meds: aspirin 81 mg Oral Daily enoxaparin 40 mg Subcutaneous Daily atorvastatin 20 mg Oral Daily ticagrelor 90 mg Oral BID metoprolol succinate 50 mg Oral Daily Continuous Infusions: sodium chloride 100 mL/hr at 08/03/19 1419 PRN Meds: acetaminophen, morphine OR morphine, HYDROcodone 5 mg - acetaminophen OR HYDROcodone 5 mg - acetaminophen, ondansetron, metoprolol Data: Past Medical History: has a past medical history of Diverticulosis, Hyperlipidemia, Hypertension, and Ventral hernia. Social History: reports that she quit smoking about 7 years ago. Her smoking use included cigarettes. She does not have any smokeless tobacco history on file. She reports that she does not drink alcohol or use drugs. Family History: No family history on file. Vitals: BP (!) 161/69 Pulse 78 Temp 97.8 F (36.6 C) (Oral) Resp 18 Ht 5' 1 (1.549 m) Wt 182 lb 4oz (82.7 kg) SpO2 92% BMI 34.44 kg/m Temp (24hrs), Av.2 F (36.8 C), Min:97.8 F (36.6 C), Max:98.8 F (37.1 C) No results for input(s): POCGLU in the last 72 hours. I/O (24Hr): Intake/Output Summary (Last 24 hours) at 08/04/2019 1003 Last data filed at 08/03/2019 1828 Gross per 24 hour Intake 1313 ml Output 100 ml Net 1213 ml Labs: Hematology: Recent Labs 08/02/19 0613 08/03/19 0505 08/04/19 0550 WBC 9.3 7.8 7.5 RBC 4.19 4.10 3.58* HGB 11.7* 11.4* 9.9* HCT 36.3 37.6 32.7* MCV 86.6 91.7 91.3 MCH 27.9 27.8 27.7 MCHC 32.2 30.3 30.3 RDW 15.6* 15.5* 15.0* PLT 215 199 184 MPV 9.3 9.4 9.1 Chemistry: Recent Labs 08/02/19 0613 08/02/19 0943 08/03/19 0505 NA -- 140 142 K -- 3.8 3.9 CL -- 106 108* CO2 -- 25 22 GLUCOSE -- 108* 78 BUN -- 14 11 CREATININE -- 0.68 0.72 ANIONGAP -- 9 12 LABGLOM -- >60 >60 GFRAA -- >60 >60 CALCIUM -- 8.6 8.3* LACTACIDWB 1.0 -- -- Physical Examination: Physical Exam Constitutional: She is oriented to person, place, and time. Vital signs are normal. She is cooperative. No distress. HENT: Head: Normocephalic and atraumatic. Eyes: Pupils are equal, round, and reactive to light. Conjunctivae and EOM are normal. Cardiovascular: Normal rate and regular rhythm. No murmur heard. Pulmonary/Chest: Effort normal. No accessory muscle usage or stridor. No respiratory distress. She has no decreased breath sounds. She has no wheezes. She has no rhonchi. She has no rales. Abdominal: Soft. Bowel sounds are normal. She exhibits no distension. There is no hepatosplenomegaly. There is no tenderness. There is no rigidity and no guarding. Musculoskeletal: She exhibits no edema or tenderness. Neurological: She is alert and oriented to person, place, and time. No cranial nerve deficit. She displays no seizure activity. Skin: Skin is warm, dry and intact. No lesion and no rash noted. No erythema. Psychiatric: She has a normal mood and affect. Her speech is normal and behavior is normal. Cognition and memory are normal. Nursing note and vitals reviewed. Assessment: Hospital Problems Last Modified POA * (Principal) Small bowel obstruction (HCC) 08/01/2019 Yes Longstanding persistent atrial fibrillation 08/02/2019 Yes Anticoagulated 08/02/2019 Yes CAD (coronary artery disease) 08/02/2019 Yes Mixed hyperlipidemia 08/02/2019 Yes Essential hypertension 08/02/2019 Yes Status post Aman procedure (HCC) 08/02/2019 Yes Plan: 1. SBO. Resolving. Tolerating oral. Advance diet. If tolerate lunch, regular diet, will discharge home 2. CAD s/p stenting. No active chest pain. Continue ASA, Brilinta 3. HTN. Controlled. Continue Toprol 50 mg 4. HLD. Continue Lipitor 5. DC planning - ambulate with PT. discharge to home possible today Ellen Gonzalez MD 08/04/2019 10:03 AM * Ellen Gonzalez MD - 08/03/2019 12:24 PM EDT [facility] IN-PATIENT SERVICE [facility] Progress Note 08/03/2019 12:24 PM Name: Gera Perdue Acct: [id number] Room: [address] [place] [address] Day: 2 Admit Date: 08/01/2019 11:58 PM PCP: Physician Generic (Inactive) Code Status: Full Code Subjective: C/C: N/V Interval History Status: improved. NGT removed. Tolerating fluid. Report some diarrhea this morning Brief History: Ms. Perdue is a 73 yr old female who initially presented to OSH with complaints of ABD pain and dry heaves x1 day. CT ABD at outlying reveals: multiple loops of mild to moderate dilated fluid-filledsmall bowel with significantly reduced caliber distal small bowel concerning for a partial distal small bowel obstruction; supraumbilical fat-containing hernia, left periumbilical fat- containing hernia, larger left lateral incisional hernia at the site of the prior colostomy. Admitted for treatmentwith NGT, bowel rest. Review of Systems: Review of Systems Constitutional: Negative for chills, diaphoresis and fever. HENT: Negative for congestion. Eyes: Negative for visual disturbance. Respiratory: Negative for cough, chest tightness, shortness of breath and wheezing. Cardiovascular: Negative for chest pain, palpitations and leg swelling. Gastrointestinal: Negative for abdominal pain, blood in stool, constipation, diarrhea, nausea and vomiting. Genitourinary: Negative for difficulty urinating. Neurological: Negative for dizziness, weakness, light-headedness, numbness and headaches. All other systems reviewed and are negative. Medications: Allergies: No Known Allergies Current Meds: Scheduled Meds: aspirin 81 mg Oral Daily enoxaparin 40 mg Subcutaneous Daily atorvastatin 20 mg Oral Daily ticagrelor 90 mg Oral BID metoprolol succinate 50 mg Oral Daily Continuous Infusions: sodium chloride 100 mL/hr at 08/02/19 0020 PRN Meds: acetaminophen, morphine OR morphine, HYDROcodone 5 mg - acetaminophen OR HYDROcodone 5 mg - acetaminophen, ondansetron, metoprolol Data: Past Medical History: has a past medical history of Diverticulosis, Hyperlipidemia, Hypertension, and Ventral hernia. Social History: reports that she quit smoking about 7 years ago. Her smoking use included cigarettes. She does not have any smokeless tobacco history on file. She reports that she does not drink alcohol or use drugs. Family History: No family history on file. Vitals: BP (!) 154/75 Pulse 76 Temp 98.1 F (36.7 C) (Oral) Resp 14 Ht 5' 1 (1.549 m) Wt 182 lb 4oz (82.7 kg) SpO2 94% BMI 34.44 kg/m Temp (24hrs), Av.1 F (36.7 C), Min:98 F (36.7 C), Max:98.1 F (36.7 C) No results for input(s): POCGLU in the last 72 hours. I/O (24Hr): Intake/Output Summary (Last 24 hours) at 08/03/2019 1224 Last data filed at 08/03/2019 1041 Gross per 24 hour Intake 2643 ml Output 750 ml Net 1893 ml Labs: Hematology: Recent Labs 08/02/1961208/03/19 0505 WBC 9.3 7.8 RBC 4.19 4.10 HGB 11.7* 11.4* HCT 36.3 37.6 MCV 86.6 91.7 MCH 27.9 27.8 MCHC 32.2 30.3 RDW 15.6* 15.5* PLT 215 199 MPV 9.3 9.4 Chemistry: Recent Labs 08/02/1961208/02/19 0943 08/03/19 0505 NA -- 140 142 K -- 3.8 3.9 CL -- 106 108* CO2 -- 25 22 GLUCOSE -- 108* 78 BUN -- 14 11 CREATININE -- 0.68 0.72 ANIONGAP -- 9 12 LABGLOM -- >60 >60 GFRAA -- >60 >60 CALCIUM -- 8.6 8.3* LACTACIDWB 1.0 -- -- Recent Labs 08/02/19 0943 08/03/19 0505 PROT 6.4 6.2* LABALBU 3.1* 2.7* AST 11 13 ALT 8 8 ALKPHOS 68 65 BILITOT 0.39 0.41 Radiology: Xr Abdomen (kub) (single Ap View) Result Date: 08/03/2019 Nonspecific bowel gas pattern. Xr Abdomen For Ng/og/ne Tube Placement Result Date: 08/02/2019 The tip of the enteric tube is in the stomach though the proximal side hole is in the esophagus. The tube should be advanced 4 cm. Physical Examination: Physical Exam Constitutional: She is oriented to person, place, and time. Vital signs are normal. She is cooperative. No distress. HENT: Head: Normocephalic and atraumatic. Eyes: Pupils are equal, round, and reactive to light. Conjunctivae and EOM are normal. Cardiovascular: Normal rate and regular rhythm. No murmur heard. Pulmonary/Chest: Effort normal. No accessory muscle usage or stridor. No respiratory distress. She has no decreased breath sounds. She has no wheezes. She has no rhonchi. She has no rales. Abdominal: Soft. Bowel sounds are normal. She exhibits no distension. There is no hepatosplenomegaly. There is no tenderness. There is no rigidity and no guarding. Musculoskeletal: She exhibits no edema or tenderness. Neurological: She is alert and oriented to person, place, and time. No cranial nerve deficit. She displays no seizure activity. Skin: Skin is warm, dry and intact. No lesion and no rash noted. No erythema. Psychiatric: She has a normal mood and affect. Her speech is normal and behavior is normal. Cognition and memory are normal. Nursing note and vitals reviewed. Assessment: Hospital Problems Last Modified POA * (Principal) Small bowel obstruction (HCC) 08/01/2019 Yes Longstanding persistent atrial fibrillation 08/02/2019 Yes Anticoagulated 08/02/2019 Yes CAD (coronary artery disease) 08/02/2019 Yes Mixed hyperlipidemia 08/02/2019 Yes Essential hypertension 08/02/2019 Yes Status post Aman procedure (HCC) 08/02/2019 Yes Plan: 1. SBO. Resolving. Tolerating fluid. Advance diet 2. CAD s/p stenting. No active chest pain. Continue ASA, Brilinta 3. HTN. Controlled. Continue Toprol 50 mg 4. HLD. Continue Lipitor 5. DC planning - ambulate with PT. discharge tomorrow Ellen Gonzalez MD 08/03/2019 12:24 PM * Chanel Willis MD - 08/03/2019 8:36 AM EDT Trauma, Emergency and Critical Surgical Services PROGRESS NOTE (Garrikc 2.0) PATIENT NAME: Gera Perdue DATE: 08/03/2019 PRIMARY CARE PHYSICIAN: Physician Generic (Inactive) HD: # 2 ASSESSMENT Patient Active Problem List Diagnosis Small bowel obstruction (HCC) Longstanding persistent atrial fibrillation Anticoagulated CAD (coronary artery disease) Mixed hyperlipidemia Essential hypertension Status post Aman procedure (HCC) 73 y/o female with small bowel obstruction. Resolving. MEDICAL DECISION MAKING AND PLAN 1. Clamp NGT. Check residuals in 4 hours. NPO for now until clamp trial completed 2. IVF 3. Ambulate as much as possible 4. Limit narcotics 5. No surgical intervention at this time SUBJECTIVE Patient seen and examined. No acute changes. Abdominal pain and distension improved. Passing flatus, no BM. OBJECTIVE VITALS: Temp: Temp: 98 F (36.7 C)Temp Av F (36.7 C) Min: 98 F (36.7 C) Max: 98 F (36.7 C) BP Systolic (24hrs), Av , Min:146 , Max:154 Diastolic (24hrs), Av, Min:60, Max:66 Pulse Pulse Av.5 Min: 74 Max: 83 Resp Resp Av Min: 16 Max: 16 Pulse ox SpO2 Av % Min: 98 % Max: 98 % GENERAL: alert, no distress NEURO: no focal deficit noted HEENT: NCAT. NGT in nares LUNGS: resp even and unlabored HEART: normal rate and regular rhythm ABDOMEN: soft, non-distended, non-tender. No peritoneal signs. EXTERMITY: without edema or cyanosis I/O last 3 completed shifts: In: 2495 [I.V.:2495] Out: 600 [Urine:300; Emesis/NG output:300] Drain/tube output: In: 2495 [I.V.:2495] Out: 600 [Urine:300] LAB: CBC: Recent Labs 08/02/19 0613 08/03/19 0505 WBC 9.3 7.8 HGB 11.7* 11.4* HCT 36.3 37.6 MCV 86.6 91.7 PLT 215 199 BMP: Recent Labs 08/02/19 0943 08/03/19 0505 NA 140 142 K 3.8 3.9 CL 106 108* CO2 25 22 BUN 14 11 CREATININE 0.68 0.72 GLUCOSE 108* 78 COAGS: Recent Labs 08/02/1943 08/03/19 0505 PROT 6.4 6.2* RADIOLOGY: No new images Sloane Alston, DO08/03/19, 6:30 AM Attending Note I [facility] and I either performed the dai elements of the medical history and physical exam or was present when the resident performed them. I have discussed the findings, established the care plan and recommendations with resident, TECSS nurse and bedside nurse. The following confirms and/or amends the IMPRESSION, MEDICAL DECISION MAKING and PLAN from above. ASSESSMENT Patient Active Problem List Diagnosis Small bowel obstruction (HCC) Longstanding persistent atrial fibrillation Anticoagulated CAD (coronary artery disease) Mixed hyperlipidemia Essential hypertension Status post Aman procedure (HCC) MEDICAL DECISION MAKING AND PLAN Resolving SBO Chanel Willis MD 08/03/2019 8:37 AM * Bety Nolasco RN - 08/03/2019 5:56 AM EDT Per aneudy Schroeder to clamp pt's NG tube. Will continue to monitor. * Bety Nolasco RN - 08/03/2019 4:[address] Blake about color change in pt's gastric contents from NG tube. No new orders, will continue to monitor. * Isabel Santos RN - 08/02/2019 9:16 AM EDT Attempted to call [facility] pharmacy in [place] to retrieve home medication list, but pharmacy does not open until 10:00 am. Grief Counsellor will attempt again after this time. * Kathy Dlilon RN - 08/02/2019 5:53 AM EDT NG Tube advanced 4 cm further as directed by Dr Ojeda. RN will continue to monitor. * Kathy Dillon RN - 08/02/2019 4:00 AM EDT Unable to review patient medication because patient was sleepy and did not confirm medication dosage. RN will continue to assess. * Kathy Dillon RN - 08/02/2019 2:00 AM EDT NG Tube inserted and on low intermittent suction.. X-ray called to verify placement. documented in this encounter Assessments Diagnosis Small bowel obstruction (HCC)- Primary Unspecified intestinal obstruction Longstanding persistent atrial fibrillation Anticoagulated Encounter for long-term (current) use of anticoagulants CAD (coronary artery disease) Coronary atherosclerosis of unspecified type of vessel, [place] or graft Mixed hyperlipidemia Essential hypertension Unspecified essential hypertension Status post Aman procedure (HCC) Chief Complaint and Reason for Visit Chief Complaint COPD/Hip pain Chief Complaint HIP PAIN Chief Complaint HIP PAIN Fall Reason for Visit Accidental fall Head injury Inability to perform activities of daily living Chief Complaint HIP PAIN Fall Reason for Visit Accidental fall Acute hip pain Fall Head injury Inability to perform activities of daily living Physical deconditioning Chief Complaint rt knee swollen, sen t by dr SINGLETON Chief Complaint rt knee swollen, sen t by dr SINGLETON Reason for Visit Acute exacerbation o f chronic obstructive pulmonary disease CAD (coronary artery disease) Closed head injury Contusion of hip Fall Umbilical hernia UTI (urinary tract infection) Chief Complaint rt knee swollen, sen t by dr SINGLETON weakness Reason for Visit Acute exacerbation o f chronic obstructive pulmonary disease CAD (coronary artery disease) Closed head injury Contusion of hip Fall Umbilical hernia UTI (urinary tract infection) Acute UTI ARTURO (acute kidney injury) Weakness Chief Complaint r06.02 N/V Reason for Visit Nausea and vomiting Pneumonia UTI (urinary tract infection) Chief Complaint r06.02 N/V N/V Reason for Visit CAD (coronary artery disease) GERD (gastroesophageal reflux disease) Nausea and vomiting Pneumonia UTI (urinary tract infection) COPD (chronic obstructive pulmonary disease) Reason for Referral Specialty Diagnoses / Procedures Referred By Contac t Referred To Contact Radiology Diagnoses Shortness of breath Procedures XR chest 2 views Jenna Engle MD [address] [place] [id number] Referral ID Status Reason Start Date Expiration Date Visits Requested Visits Authorized [id number] Authorized Perform Procedure 01/06/2024 01/05/2025 1 1 Specialty Diagnoses / Procedures Referred By Contac t Referred To Contact Diagnoses Shortness of breath Procedures ECG 12 Lead Jenna Engle MD [address] [place] [id number] Referral ID Status Reason Start Date Expiration Date V isits Requested Visits Authorized [id number] Authorized 01/06/2024 01/05/2025 1 1 Specialty Diagnoses / Procedures Referred By Contac t Referred To Contact Cardiology Diagnoses Shortness of breath Procedures Follow Up In Cardiology Jenna Engle MD [address] [place] [id number] Jenna Engle MD [address] [place] [address] [phone] Referral ID Status Reason Start Date Expiration Date V isits Requested Visits Authorized [id number] Authorized 01/06/2024 01/05/2025 1 1 Specialty Diagnoses / Procedures Referred By Contac t Referred To Contact Cardiology Diagnoses Shortness of breath Procedures Transthoracic Echo Complete [place] ECHO TTHRC R-T 2D W/WOM-MODE COMPL SPEC&COLR D Jenna Engle MD [address] [place] [id number] Referral ID Status Reason Start Date Expiration Date Visits Requested Visits Authorized [id number] Pending Review Perform Procedure 01/06/2024 01/05/2025 1 1 Specialty Diagnoses / Procedures Referred By Contac t Referred To Contact Elevator Examiner And Adjuster Diagnoses Essential hypertension ([facility]/HCC) Stage 3a chronic kidney disease (HCC) ([facility]) Sepsis with acute renal failure without septic shock, due to unspecified organism, unspecified acute renal failure type ([facility]) Medication management Procedures [place] OFFICE/OUTPATIENT NEW HIGH MDM 60 MINUTES Lilliam Cheek, GRAVURE PRESS SET UP OPERATOR [address] [place] [address] [place] [place] [address] Referral ID Status Reason Start Date Expiration Date Visits Requested Visits Authorized [id number] Pending Review Specialty Services Required 12/09/2023 06/06/2024 1 1 Specialty Diagnoses / Procedures Referred By Contac t Referred To Contact Home Health Services Diagnoses SOB (shortness of breath) Wheezing Urinary tract bacterial infections Essential hypertension ([facility]) Mixed hyperlipidemia ([facility]) Stage 3a chronic kidney disease (HCC) ([facility]) Sepsis with acute renal failure without septic shock, due to unspecified organism, unspecified acute renal failure type ([facility]) Medication management Lilliam Cheek, GRAVURE PRESS SET UP OPERATOR [address] [place] [address] Referral ID Status Reason Start Date Expiration Date Visits Requested Visits Authorized [id number] Pending Review Specialty Services Required 12/09/2023 02/07/2024 999 999 Specialty Diagnoses / Procedures Referred By Contac t Referred To Contact Obstetrics and Gynecology Diagnoses Urinary tract bacterial infections Female bladder prolapse Procedures [place] OFFICE/OUTPATIENT NEW HIGH MDM 60 MINUTES Lilliam Cheek, GRAVURE PRESS SET UP OPERATOR [address] [place] [address] Cee Cordero DO [address] [place] [address] Referral ID Status Reason Start Date Expiration Date Visits Requested Visits Authorized [id number] Pending Review Specialty Services Required 12/09/2023 06/06/2024 1 1 Additional Source Comments INFORMATION SOURCE (unrecogn ized section and content) DATE CREATED AUTHOR 07/12/2018 [facility] DATE CREATED AUTHOR AUTHOR'S ORGANIZ ATION 08/29/2019 [facility] DATE CREATED AUTHOR AUTHOR'S ORGANIZ ATION 12/24/2020 [facility] DATE CREATED AUTHOR AUTHOR'S ORGANIZ ATION 05/01/2022 [facility] dical Specialist DATE CREATED AUTHOR AUTHOR'S ORGANIZ ATION 01/02/2023 [facility] DATE CREATED AUTHOR AUTHOR'S ORGANIZ ATION 01/21/2023 [facility] DATE CREATED AUTHOR AUTHOR'S ORGANIZ ATION 02/01/2024 [facility] DATE CREATED AUTHOR AUTHOR'S ORGANIZ ATION 02/16/2024 [facility] DATE CREATED AUTHOR AUTHOR'S ORGANIZ ATION 02/26/2024 [facility] DATE CREATED AUTHOR AUTHOR'S ORGANIZ ATION 04/23/2024 DATE CREATED AUTHOR AUTHOR'S ORGANIZ ATION 05/02/2024 [facility] DATE CREATED AUTHOR AUTHOR'S ORGANIZ ATION 05/30/2024 [facility] DATE CREATED AUTHOR AUTHOR'S ORGANIZ ATION 07/04/2024 [facility] dical Specialists EPIC Reason for Visit (unrecogniz ed section and content) Status Reason Specialty Diagnoses / Procedures Referre d By Contact Referred To Contact Diagnoses Small bowel obstruction (HCC) Verenice Shea MD [address] [address] [facility] Reason Onset Date Comments Neuro Appt 10/30/2023 Reason Comments Hospital Follow-up Reason Comments New Patient Visit Old wpm patient Specialty Diagnoses / Procedures Referred By Contac t Referred To Contact Cardiology Diagnoses Shortness of breath Procedures Transthoracic Echo Complete [place] ECHO TTHRC R-T 2D W/WOM-MODE COMPL SPEC&COLR D Jenna Engle MD [address] [facility] [address] [place] [address] Referral ID Status Reason Start Date Expiration Date Visits Requested Visits Authorized [id number] Authorized Perform Procedure 01/06/2024 01/05/2025 1 1 Reason Comments Follow-up 1m echo results Specialty Diagnoses / Procedures Referred By Contvianney t Referred To Contact Cardiology Diagnoses Shortness of breath Procedures Follow Up In Cardiology Jenna Engle MD [address] [facility] [address] [place] [address] Jenna Engle MD 254 [facility] [address] [place] [address] Referral ID Status Reason Start Date Expiration Date V isits Requested Visits Authorized [id number] Authorized 01/06/2024 01/05/2025 1 1 Care Teams (unrecognized sec tion and content) Team Status: Inactive Member Role Status Dates Gustavo Salas DO Primary Care Provider Active Hilario Yeung DO Emergency Provider Active Team Status: Active Member Role Status Dates Gustavo Salas DO Primary Care Provider Active Team Status: Inactive Member Role Status Dates Gustavo Salas DO Primary Care Provider Active Richard Pearson DO Emergency Provider Active Team Status: Active Member Role Status Dates Maddy Morrissey PA-C Emergency Provider Active Gustavo Salas DO Primary Care Provider Active Jolanta Mckenzie MD Admit Provider, Attending Provider Active Team Status: Inactive Member Role Status Dates Maddy Morrissey PA-C Emergency Provider Active Gustavo Salas DO Primary Care Provider Active Jolanta Mckenzie MD Admit Provider Active Jesus Alberto Aquino MD Attending Provider Active Team Status: Inactive Member Role Status Katelyn Salas DO Primary Care Provider Active Kadie Jones MANUFACTURING ASSISTANT- Emergency Provider Active Team Status: Active Member Role Status Katelyn Salas DO Primary Care Provider Active Marshall Dominguez DO Emergency Provider Active Jolanta Mckenzie MD Admit Provider, Attending Provider Active Team Status: Inactive Member Role Status Katelyn Salas DO Primary Care Provider Active Mrashall Dominguez DO Emergency Provider Active Jolanta Mckenzie MD Admit Provider, Attending Provider Active Team Status: Active Member Role Status Dates Maury M Yuni , DO Emergency Provider Active Gustavo Salas , DO Primary Care Provider Active Jesus Alberto Aquino MD Admit Provider, Attending Provider Active Team Status: Inactive Member Role Status Dates Maury Morrissey , DO Emergency Provider Active Gustavo Salas , DO Primary Care Provider Active Jesus Alberto Aquino MD Admit Provider, Attending Provider Active Oxyacetylene Burner Relationship Specialty Start Date End Date Mely Camarillo APRN-CNP [address] [place] [address] PCP - General Family Medicine 04/08/19 Oxyacetylene Burner Relationship Specialty Start Date End Date Mely Camarillo APRN-CNP [address] [place] [address] PCP - General Family Medicine 04/08/19 Oxyacetylene Burner Relationship Specialty Start Date End Date Mely Camarillo APRN-CNP [address] [place] [address] PCP - General Family Medicine 04/08/19 Oxyacetylene Burner Relationship Specialty Start Date End Date Gustavo Salas DO [address] [place] [address] PCP - General Internal Medicine 12/09/23 Leah Burgos, LASHAY [address] [place] [address] Registered Nurse Internal Medicine 12/09/23 Oxyacetylene Burner Relationship Specialty Start Date End Date Gustavo Salas DO [address] [place] [address] PCP - General Internal Medicine 01/06/24 Oxyacetylene Burner Relationship Specialty Start Date End Date Gustavo Salas DO [address] [place] [address] PCP - General Internal Medicine 01/06/24 Oxyacetylene Burner Relationship Specialty Start Date End Date MaritzaGustavo RazaDO [address] [place] [address] PCP - General Internal Medicine 01/06/24 Team Status: Inactive Member Role Status Dates Gustavo Salas DO Primary Care Provider Active Start: January 06, 2024 End: January 06, 2024 Jenna Engle MD Attending Provider Active Star t: January 06, 2024 End: January 06, 2024 Team Status: Active Member Role Status Dates Gustavo Salas DO Primary Care Provider Active Start: February 14, 2024 Kadie Jones [facility]- Emergency Provider Active Start: February 14, 2024 Lucho Grullon MD Admit Provider, Attanaly kemping Provider Active Start: February 14, 2024 Team Status: Inactive Member Role Status Dates Gustavo Salas DO Primary Care Provider Active Start: February 14, 2024 End: February 17, 2024 Kadie Jones [facility]- Emergency Provider Active Start: February 14, 2024 End: February 17, 2024 Lucho Grullon MD Admit Provider Active Start: February 14, 2024 End: February 17, 2024 Michoacano Mckenzie MD Attending Provider Active Start: February 14, 2024 End: February 17, 2024 Team Status: Active Member Role Status Dates Gustavo Salas DO Primary Care Provider Active Start: February 14, 2024 Kadie Jones [facility]-BC Emergency Provider Active Start: February 14, 2024 Lucho Grullon MD Admit Provider, Atte nding Provider, Other Provider Active Start: February 14, 2024 Goals (unrecognized section and content) Goals may be documented in a n alternate section FOR RECORDS PERTAINING TO PATIENTS WHO ARE OR HAVE BEEN ENROLLED IN A CHEMICAL DEPENDENCY/SUBSTANCEABUSE PROGRAM, SOME INFORMATION MAY BE OMITTED. This clinical summary was aggregated from multiple sources. Caution should be exercised in using it in the provision of clinical care. This summary normalizes information from multiple sources, and as a consequence, information in this document may materially change the coding, format and clinical context of patient data. In addition, data may be omitted in some cases. CLINICAL DECISIONS SHOULD BE BASED ON THE PRIMARY CLINICAL RECORDS. [facility] [employer]. provides no warranty or guarantee of the accuracy or completeness of information in this document.
[2024-08-14 11:07] LABS: Basophils Absolute Auto 0.1 10^3/uL (0.0-0.1); Basophils Percent Auto 0.4 % (0.2-2.0); Eosinophils Absolute Auto 0.2 10^3/uL (0.0-0.7); Eosinophils Percent Auto 1.2 % (0.9-7.0); Hematocrit 34.3 % (36.0-48.0); Hemoglobin 10.4 g/dL (12.0-16.0); Immature Granulocytes Abs Auto 0.08 10^3/uL (0.00-0.03); Immature Granulocytes Pct Auto 0.6 % (0.0-0.5); Lymphocytes Absolute Auto 2.4 10^3/uL (1.2-3.8); Lymphocytes Percent Auto 17.4 % (20.5-60.0); Mean Corpuscular HGB Conc 30.3 g/dL (29.9-35.2); Mean Corpuscular Volume 75.9 fL (81.0-99.0); Mean Platelet Volume 7.9 fL (9.5-13.5); Monocytes Absolute Auto 0.9 10^3/uL (0.3-0.8); Monocytes Percent Auto 6.8 % (1.7-12.0); Neutrophils Absolute Auto 10.1 10^3/uL (1.4-6.5); Neutrophils Percent Auto 73.6 % (43.0-75.0); Platelet Count 438 10^3/uL (150-450); Red Blood Count 4.52 10^6/uL (4.20-5.40); Red Cell Distribution Width 17.6 % (11.0-15.0); White Blood Count 13.8 10^3/uL (4.0-11.0)
[2024-08-14 11:44] LABS: Alanine Aminotransferase 12 U/L (14-59); Albumin Globulin Ratio 0.4; Albumin Level 2.2 g/dL (3.4-5.0); Alkaline Phosphatase 112 U/L (46-116); Anion Gap 12.4; Aspartate Amino Transferase 11 U/L (15-37); BUN Creatinine Ratio 11.9; Bilirubin Total 0.5 mg/dL (0.2-1.0); Calcium 9.7 mg/dL (8.5-10.1); Carbon Dioxide 28.7 mmol/L (21.0-32.0); Chloride 102 mmol/L (98-107); Estimated GFR (African America >60 (>=60 mL/min/1.73m^2); Estimated GFR (Non-African Ame 53 (>=60 mL/min/1.73m^2); Globulin 5.6 g/dL; Glucose 89 mg/dL (74-106); Potassium 4.1 mmol/L (3.5-5.1); Sodium 139 mmol/L (136-145); Total Protein 7.8 g/dL (6.4-8.2); Troponin I High Sensitivity <4.0 pg/mL (4.0-51.3)
[2024-08-14] MEDS: ACETAMINOPHEN 325 MG TABLET 650 MG PO (12:01)
[2024-08-14] MEDS: METHYLPREDNISOLONE SOD SUCC PF 125 MG/2 ML VIAL IVP (12:32)
== END 2024-08-14 14:38 | disposition home or self-care (01) ==
PROVIDERS: Emergency Provider Emergency Medicine; PCP Internal Medicine
DX: R11.0 Nausea (principal); M17.12 Unilateral primary osteoarthritis, left knee; R09.89 Other specified symptoms and signs involving the circulatory and respiratory systems; R06.02 Shortness of breath
CPT/HCPCS: 36415; 71045; 73502; 73552; 73562; 73590; 80053; 83880; 84484; 85025; 93005; 96374; 99285; J2919

== ENCOUNTER 2024-09-19 11:47 | Inpatient (IN) | payer MEDICARE, MEDICAID, SELFPAY ==
[2024-09-19] VITALS (18 sets, daily range): BP systolic 99–172; BP diastolic 34–116; PULSE 80–92; TEMP 36.4–36.7; O2SAT 94–98; BMI 34.8; BMI 36.9
--- NOTE | 2024-09-19 12:06 | ECG_ITS ---
[facility] Test Date: 2024-09-19 Pat Name: GERA PERDUE Department: Room: 2141 Gender: Female Student Life Dean: : 1945 Requested By: [id number] Order Number: [id number] Reading MD: CARLOS MANUEL LANGLEY Measurements Intervals [place] Rate: 88 P: 50 CT: 154 QRS: 57 QRSD: 80 T: 58 QT: 360 QTc: 405 Interpretive Statements 1100 Sinus rhythm 8102 Low QRS voltage in chest leads 9120 atypical ECG Compared to ECG 08/14/2024 10:51:52 Low QRS voltage now present Electronically Signed On 09-20-2024 12:08:50 EST by CARLOS MANUEL LANGLEY
--- NOTE | 2024-09-19 12:06 | XR_ITS ---
The [address] [address] Patient Name: GERA PERDUE MRN: [id number] date: 1945 Sex: F Assigned Patient Location: ER Current Patient Location: ED.MAIN Accession/Order Number: [id number] Exam Date: 09/19/2024 12:25 Report Date: 09/19/2024 13:29 At the request of: DAVID MOTTA Procedure: XR chest 1V EXAM: XR chest 1V HISTORY: SOB COMPARISON: 08/14/2024 and earlier including chest x-ray and CT TECHNIQUE: AP upright chest x-ray. FINDINGS: Right lung, left upper midlung clear. Abnormal density left lower chest felt to be chronic pleural-parenchymal scarring. No new or acute appearing lung abnormality. Cardiac silhouette prominent stable. No definite right effusion. Left pleural thickening noted without evidence of increasing effusion. No pneumothorax. Chronic deformity of the proximal right humerus at the shoulder is again noted unchanged. XR/XR chest 1V IMPRESSION: Stable chest x-ray, no new or acute appearing abnormality. Electronically authenticated by: DAMIEN DOBBS Date: 09/19/2024 13:29
--- NOTE | 2024-09-19 12:14 | ED.GENADUL1 ---
HPI HPI - General Adult General Chief complaint: Shortness of Breath/Dyspnea Stated complaint: BACK/SIDE PAIN, SOB, CONGESTION Time Seen by Provider: 09/19/24 12:00 Source: patient and family Mode of arrival: Wheelchair History of Present Illness HPI narrative: 78-year-old female presents for cough and shortness of breath for a few days. Her thoracic sides posteriorly have been hurting as well for a few days without any trauma. She has not had a fever and she has been coughing up some clear to green-colored phlegm. She took an aerosol treatment yesterday, none today. Related Data Home Medications ?Medication ?Instructions ?Recorded ?Confirmed albuterol sulfate 90 mcg/actuation 2 puff inhalation Q4H PRN 08/28/23 09/19/24 aerosol inhaler shortness of breath or wheezing bupropion HCl 300 mg 24 hr tablet, 300 mg PO QDAY 08/28/23 09/19/24 extended release cholecalciferol (vitamin D3) 50 50 mcg PO DAILY 08/28/23 09/19/24 mcg (2,000 unit) tablet pregabalin 75 mg capsule 75 mg PO BID 08/28/23 09/19/24 melatonin 5 mg tablet 5 mg PO QPM 08/14/24 09/19/24 fluticasone fur. 100 mcg-umeclid 1 inh inhalation QAM 09/19/24 09/19/24 62.5 mcg-vilant 25 mcg inhalat.powder (Trelegy Ellipta) Allergies Allergy/AdvReac Type Severity Reaction Status Date / Time aspirin Allergy Severe Hives Verified 09/19/24 12:12 Opioid HPI Opioid Management Most Recent Opioid Data: Last Pain Scale 6 09/19/24 12:49 09/19/24 Review of Systems ROS Narrative A ten point review of systems is negative except as noted above. [facility] Medical History Anemia ?D64.9 - Anemia, unspecified (ICD-10) HLD (hyperlipidemia) ?E78.5 - Hyperlipidemia, unspecified (ICD-10) ARMAND (obstructive sleep apnea) ?G47.33 - Obstructive sleep apnea (adult) (pediatric) (ICD-10) COPD (chronic obstructive pulmonary disease) ?J44.9 - Chronic obstructive pulmonary disease, unspecified (ICD-10) HTN (hypertension) ?I10 - Essential (primary) hypertension (ICD-10) Surgical History History of colon surgery ?Z98.890 - Other specified postprocedural states (ICD-10) Social History Smoking status: Former smoker Highest level of school completed/degree received: 11th grade Little interest or pleasure in doing things: not at all Feeling down, depressed, or hopeless: not at all Exam Narrative Exam Narrative: Nurses note and vital signs reviewed and patient is not hypoxic. General: The patient appears uncomfortable but in no acute respiratory distress. She coughs frequently and has audible wheezing Skin: Warm, dry, no pallor noted. There is no rash noted. Head: Normocephalic, atraumatic Eye: Normal conjunctiva, no drainage Ears, Nose, Mouth, and Throat: oral mucosa is moist. Nares patent. Cardiovascular: Regular Rate and Rhythm Respiratory: Bilateral rhonchi, audible wheezing present Back: non-tender GI: Soft and nontender Musculoskeletal: The patient has no evidence of calf tenderness, symmetrical pulses noted bilaterally Neurological: A&O, normal speech Psychiatric: Cooperative Constitutional Vital Signs, click to edit/add: Last Vital Signs Temp 98.1 F 09/19/24 12:03 Pulse 86 09/19/24 13:25 Resp 25 H 09/19/24 13:25 BP 99/62 09/19/24 13:25 Pulse Ox 97 09/19/24 13:25 O2 Del Method Nasal Cannula 09/19/24 12:59 O2 Flow Rate 3 09/19/24 12:59 Course Vital Signs Vital signs: Vital Signs Temperature 98.1 F 09/19/24 12:03 Pulse Rate 92 H 09/19/24 12:03 Respiratory Rate 24 H 09/19/24 12:03 Blood Pressure 172/87 H 09/19/24 12:03 Pulse Oximetry 96 09/19/24 12:03 Oxygen Delivery Flow Rate 3 09/19/24 12:03 Temperature 98.1 F 09/19/24 12:03 Pulse Rate 86 09/19/24 13:25 Respiratory Rate 25 H 09/19/24 13:25 Blood Pressure 99/62 09/19/24 13:25 Pulse Oximetry 97 09/19/24 13:25 Oxygen Delivery Method Nasal Cannula 09/19/24 12:59 Oxygen Delivery Flow Rate 3 09/19/24 12:59 Medical Decision Making MDM Narrative Medical decision making narrative: Chest x-ray on my interpretation shows no infiltrate. COVID and influenza are negative. She is feeling improved after aerosol treatment and IV Solu-Medrol. She will be admitted. She was given IV Levaquin, she has been coughing up some green phlegm. Treatment diagnosis and disposition were discussed with the patient. Differential Diagnosis Differential Diagnosis: Pneumonia, COVID, influenza, CHF, viral URI Lab Data Lab results reviewed: Yes I reviewed the patient's lab results Labs: Lab Results 09/19/24 09/19/24 Range/Units 12:22 12:29 WBC 10.9 (4.0-11.0) 10^3/uL RBC 4.49 (4.20-5.40) 10^6/uL Hgb 10.4 L (12.0-16.0) g/dL Hct 35.4 L (36.0-48.0) % MCV 78.8 L (81.0-99.0) fL MCH 23.2 L (26.7-34.0) pg MCHC 29.4 L (29.9-35.2) g/dL RDW 21.2 H (11.0-15.0) % Plt Count 334 (150-450) 10^3/uL MPV 8.2 L (9.5-13.5) fL Neut % (Auto) 61.9 (43.0-75.0) % Lymph % (Auto) 26.2 (20.5-60.0) % Story % (Auto) 7.6 (1.7-12.0) % Eos % (Auto) 3.2 (0.9-7.0) % Baso % (Auto) 0.7 (0.2-2.0) % Neut # (Auto) 6.7 H (1.4-6.5) 10^3/uL Lymph # (Auto) 2.9 (1.2-3.8) 10^3/uL Story # (Auto) 0.8 (0.3-0.8) 10^3/uL Eos # (Auto) 0.4 (0.0-0.7) 10^3/uL Baso # (Auto) 0.1 (0.0-0.1) 10^3/uL Abs Immat Gran (auto) 0.04 H (0.00-0.03) 10^3/uL Imm/Tot Granulo (auto) 0.4 (0.0-0.5) % Sodium 140 (136-145) mmol/L Potassium 3.8 (3.5-5.1) mmol/L Chloride 106 (98-107) mmol/L Carbon Dioxide 26.3 (21.0-32.0) mmol/L Anion Gap 11.5 BUN 14.0 (7.0-18.0) mg/dL Creatinine 1.17 H (0.55-1.02) mg/dL Est GFR ( Amer) 54 L (>=60 mL/min/1.73m^2) Est GFR (Non-Af Amer) 45 L (>=60 mL/min/1.73m^2) BUN/Creatinine Ratio 12.0 Glucose 129 H (74-106) mg/dL Calcium 8.9 (8.5-10.1) mg/dL Troponin I High Sens 6.1 (4.0-51.3) pg/mL Influenza Type A Ag Negative Influenza Type B Ag Negative SARS-CoV-2 Ag (CV2AG) Negative (NEGATIVE) Imaging Data Chest x-ray: My impression: No acute findings Radiologist's impression: ITS Impressions Chest X-Ray 09/19/24 12:06 IMPRESSION: Stable chest x-ray, no new or acute appearing abnormality. Electronically authenticated by: DAMIEN DOBBS Date: 09/19/2024 13:29 ECG Data Attestation: I personally reviewed and interpreted this ECG as follows: (EKG on my interpretation shows sinus rhythm with rate of 88 and no acute change.) Critical Care Time Critical Care Time Critical Care Time: Yes Total Critical Care Time: 35 Attestation: Due to the high probability of sudden and clinically significant deterioration in the patient's condition he/she required the highest level of my preparedness to intervene urgently I provided critical care time including documentation time, medication orders and management, reevaluation, vital sign assessment, ordering and reviewing of lab tests, ordering and reviewing of x-ray studies, and admission orders. Aggregate critical care time is 35 minutes including only time during which I was engaged in work directly related to his/her care and did not include time spent treating other patients simultaneously. Discharge Plan Discharge Chief Complaint: Shortness of Breath/Dyspnea Clinical Impression: Acute exacerbation of chronic obstructive pulmonary disease Patient Disposition: Admitted As Inpatient Time of Disposition Decision: 12:58 Condition: Fair
--- OUTSIDE RECORDS SUMMARY | 2024-09-19 12:15 | XMS_ITS | CCD ---
Author Organization [facility] Care Team Providers Care Director Of Outreach Name Role Phone Mely Camarillo Unavailable Unavailable CRYS BARBOZA Consulting Unavailable VERENICE CHILEL Admitting Unavailable ELLEN GONZALEZ Attending Unavailable GENERIC, PHYSICIAN Primary Care Unavailable JIMMY GUZMAN Referring Unavailable DANGELO LOZA Consulting U navailable Generic, Physician Primary Care Provider Unavail able Jorge A Jackson Unavailable Tanya Guerrero Unavailable DO Gustavo Salas Primary Care Provider DO Hilario Yeung Emergency Provider Unavai DO Gustavo Hernandez Primary Care Provider DO Richard Pearson Emergency Provider ETHAN Morrissey Emergency Provider [phone] MD Jolanta Mckenzie Admit Provider MD Jolanta Mckenzie Attending Provider MD Jesus Alberto Aquino Attending Provider Dr. Charlie Mondragon II Attending Unavailable TORI ., NARENDALONDRA Admitting Sahra vailable TORI ., NARENDCHAIMATH Attending Sahra dottyble DR SVITLANA HAMMOND Primary Care Unavailable DO Gustavo Salas Primary Care Provider Karen TABLE LEVER OPERATOR-SRINI [place] Emergency Provider [phone] DO Marshall Dominguez Emergency Provider MD Jolanta Mckenzie Admit Provider MD Jolanta Mckenzie Attending Provider DO Maury Morrissey Emergency Provider MD Jesus Alberto Aquino Admit Provider [phone] MD Jesus Alberto Aquino Attending Provider Vonthron [employer] MANAGER, Mely A Primary Care Provid er Gustavo Salas DO Primary Care Provider [phone] Aubrey METZ, Leah Unavailable Gustavo Salas DO Primary Care Provider GUSTAVO SALAS Primary Care Physician Unavail able JENNA ENGLE Referring Unavailable MARITZA, GUSTAVO A Primary Care Unavailable DO Gustavo Salas Primary Care Provider [phone] MD Jenna Engle Attending Provider [phone] Karen [facility] Kadie E Emergency Provider MD Lucho Grullon Admit Provider [phone] MD Lucho Grullon Attending Provider [phone] JENNA ENGLE Attending Unavailable MARITZA, GUSTAVO A Primary Care Unavailable JENNA ENGLE Attending Unavailable JENNA ENGLE Referring Unavailable MARITZAGUSTAVO Primary Care Unavailable MD Michoacano Mckenzie Attending Provider [phone] Renae Ponce X Attending Unavailable MARITZA, GUSTAVO A Referring Unavailable Orzech Renae X Attending Unavailable Orzech, Renae X Admitting Unavailable MARIELA, RABBIA L Referring Unavailable VONTHRON, MELY A Primary Care Unavailable MARIELA, RABBIA L Referring Unavailable VONTHRON, MELY A Primary Care Unavailable SHEILA BARRY Referring Unavailable VONTHRON, MELY A Primary Care Unavailable ANAHY BAGRER Referring Unavailabl e VONTHRON, MELY A Primary [...] Primary Care Unavailable GINNY BELCHER Attending Unavailable MARITZA, GUSTAVO A Referring Unavailable MARITZA, [...] Primary Care Unavailable JAMAL, NANCY Referring Unavailable MARITZA, GUSTAVO A Primary Care Unavailable RUPERTO BARBOZA Attending Unavailable MARITZA, GUSTAVO Person Attending Unavailable MARITZA, GUSTAVO A Referring Unavailable LILLIAM CHEEK Attending Unavailable RUPERTO BARBOZA Attending Unavailable MARITZA, GUSTAVO A Referring Unavailable MARITZA, GUSTAVO A Attending Unavailable MARITZA, GUSTAVO A Referring Unavailable MARITZA, GUSTAVO A Referring Unavailable MARITZA, GUSTAVO A Attending Unavailable MARITZA, GUSTAVO A Referring Unavailable MARITZA, GUSTAVO A Attending Unavailable MARITZA, GUSTAVO A Referring Unavailable MARITZA, GUSTAVO A Attending Unavailable MARITZA, GUSTAVO A Referring Unavailable MARITZA, GUSTAVO A Referring Unavailable MARITZA, GUSTAVO A Attending Unavailable Jenna Engle Admitting Unavailable Maritza, Gustavo Primary Care Unavailable Jenna Engle Attending Unavailable [place]ano Mckenzie Attending Unavailab Lucho Yoder Admitting Unavailable Maritza Gustavo Primary Care Unavailable Allergies Allergy Classification Reported Allergen(s) Allergy Type Date of Onset Reaction(s) Facility (11 sources) Acetaminophen / oxyCODONE; Translations: [acetaminophen-ox ycodone] Drug Allergy 3 vomiting [facility] Other (20 sources) Aspirin; Translations: [aspirin] Drug Allergy 9 Other, Nausea/vomiting [facility] (4 sources) Acetaminophen / oxyCODONE; Translations: [OXYCODONE-ACETAM INOPHEN] Drug Allergy 3 GI intolerance [facility] (5 sources) Ibuprofen; Translations: [IBUPROFEN] Drug Allergy 4 Nausea/vomiting [facility] (3 sources) Acetaminophen; Translations: [acetaminophen] Drug Allergy 4 vomiting [facility] (5 sources) oxyCODONE; Translations: [OXYCODONE] Drug Allergy 1 vomiting [facility] (1 source) Acetaminophen / oxyCODONE; Translations: [acetaminophen-ox ycodone] Drug Allergy [facility] Repository Medications Current Medications Medication Drug Class(es) [...] - 3). Active take 2 capsules by m outh every eight hours Acetaminophen 500 MG 2 capsules as needed Orally every 8 hrs PRN Active [id number] 200 actuat albuterol 0.09 mg/actuat metered dose [...] Hcl Active 300 MG PO Every morning 30 September 21, 2020 1:00am End: 08-02-2019 take [...] day(s), # 14 cap(s), Refills(s) 0, Pharmacy: [id number], 170, cm, 01/30/24 13:39:00 EDT, [...] BID Active take 1 capsule by mo iah in the morning cholecalciferol, vitamin D3, 2,000 [...] 1 puff(s) by inhalation in the morning Cmfutpoknod-Vgkzmncxg-Lopmkt (Trelegy Ellipta) 100-62.5-25 MCG/ACT aerosol powder Indications: Panlobular emphysema (CMS/HCC) Inhale 1 puff in the morning. 1 each 04/01/2023 12/09/2023 Discontinued (Other) Start: 04-01-2023 take 1 puff(s) by inhalation once daily asietqpeklb-fidrhotan-iemypjfw (TRELEGY ELLIPTA) 100-62.5-25 mcg blister with device Inhale 1 puff once daily. 0 04/01/2023 Active Start: 02-23-2020 End: 04-25-2020 Urnlmkoarnm-Jshgomlyh-Oeaayy er (Trelegy Ellipta) 100-62.5-25 mcg blister with device Discontinued 1 PUFF INHALATION As Directed February 22, 2020 11:00pm April 25, 2020 5:58pm Start: 02-23-2020 End: 04-25-2020 Kzffsvewdsr-Lblfbzyiw-Ireudz er (Trelegy Ellipta) 100-62.5-25 mcg blister with [...] 06/17/2023 Active Start: 06-17-2023 nystatin (Myco statin) [id number] UNIT/GM powder Indications: Rash APPLY TOPICALLY TO [...] tablet Active 40 MG PO Every morning September 21, 2020 1:38pm potassium chloride 10 [...] 09/01/2023 Active take 1 tablet by nika once daily potassium chloride CR 10 mEq [...] daily Prednisone Discontinued 20 MG PO Daily 12 July 14, 2023 12:00am August 20, 2023 1:29pm 20mg daily for 3 days then 10mg daily for 3 days Start: 05-31-2022 End: 12-26-2022 take 50 mg by mouth once daily Prednisone Discontinued 50 MG PO Daily 5 May 31, 2022 12:00am December 26, 2022 11:27pm Start: 11-15-2017 End: 08-01-2019 take 60 mg by mouth once daily at mealtime Prednisone Discontinued 60 MG PO Daily 15 November 15, 2017 1:00am August 01, 2019 6:32pm [...] by mouth nightly. 0 10/23/2023 Active sennosides, assisted 8.6 mg oral tablet (2 sources) Start: 09-21-2020 take 1 tablet by mouth once daily at bedtime Sennosides (Senna Lax) 8.6 mg Tablet Active 1 TAB PO Daily at bedtime 30 September 21, 2020 12:00am 1000 ml sodium [...] every four to six hours Hydrocodone-Acetami nophen ([place]) 5-325 mg tablet Discontinued 1 TAB PO EVERY 4-6 HOURS 07 30January 15, 2020 February 23, 2020 2:44pm Start: 08-02-2019 HYDROcodone-ac etaminophen (NORCO) 5-325 MG per tablet 1 tablet Start: 01-02-2019 End: 01-12-2019 take 1 tablet by mouth every six hours Hydrocodone-Acetaminophen ([place]) 5-325 mg tablet Discontinued 1 TAB PO Q6H 16 03January 02, 2019 January 12, 2019 6:44am Start: 06-22-2018 End: 08-01-2019 take 1 tablet by mouth every four to six hours Hydrocodone-Acetaminophen ([place]) 5-325 mg tablet Discontinued 1 TAB PO [...] daily Aspirin Discontinued 81 MG PO Daily September 21, 2020 1:00am December 26, 2022 11:26pm Start: [...] Budesonide Discontinued 0.5 MG INHALATION BID@0600,1800 100 30 September 21, 2020 1:00am July 10, 2023 [...] D2 Compound Start: 04-28-2020 End: 12-26-2022 take 17368 [IU] by mouth every month Ergocalciferol (Vitamin D2) Discontinued 48996 UNIT PO every month April 28, 2020 [...] application Externally Twice a day prn Active Lvxenojsjayh-Yfoygaaf-Txdhdb (Multivitamin 50 Plus) Tablet (10 sources) Start: 02-23-2020 End: 04-25-2020 Mauigyurfcjp-Vkkgiuxi-Qdtylv (Multivitamin 50 Plus) Tablet Discontinued 1 TAB PO Daily February 22, 2020 11:00pm April 25, 2020 5:58pm Start: 02-23-2020 End: 04-25-2020 Yetlpqvbqolu-Lrehztlp-Yutine (Multivitamin 50 Plus) Tablet Discontinued 1 TAB [...] DOSES CALL 911 Sublingual as needed Active Clinton-3 Fatty Acids-Fish Oil (Fish Oil) 300-1,000 mg capsule (10 sources) Start: 08-01-2019 End: 02-23-2020 take 1 capsule by mouth once daily [place]-3 Fatty Acids-Fish Oil (Fish Oil) 300-1,000 mg capsule Discontinued 1000 MG PO Daily July 31, 2019 11:00pm February 23, 2020 3:42pm Start: 08-01-2019 End: 02-23-2020 take 1 capsule by mouth once daily [place]-3 Fatty Acids-Fish Oil (Fish Oil) 300-1,000 mg [...] Oxycodone Discontinued 5 MG PO Q6H 20 September 21, 2020 December 26, 2022 11:27pm [...] PO Daily at bedtime September 21, 2020 1:00am December 26, 2022 [...] Date Documented Da te Episodic/Chronic Abdominal hernia (14 sources) Umbilical hernia; Translations: [Umbilical hernia without obstruction or gangrene] Onset: 3 07-11-2023 Episodic Acute cerebrovascular disease (10 sources) Cerebrovascular accident; [...] Translations: [Stage 3a chronic kidney disease (HCC) ([facility])] Onset: 3 12-09-2023 Chronic Chronic kidney disease (3 sources) Chronic kidney disease; Translations: [Chronic kidney disease, stage 3b ([facility]/HCC)] Onset: 4 Chronic obstructive pulmonary disease and [...] atrial fibrillation] Onset: 3 Urinary tract infections (20 sources) Urinary tract infectious disease; Translations: [Urinary tract infection, site not specified] Onset: 4 04-28-2020 Episodic Viral infection (4 sources) Verruca plantaris; Translations: [Plantar wart] Onset: 3 06-14-2023 Episodic Past or Other Problems Problem Classification Problem Date Documented Da te Episodic/Chronic Acute and unspecified renal failure (20 sources) [...] 06-14-2023 Episodic Residual codes; unclassified (2 sources) Localized edema; Translations: [Localized edema] Onset: 06-19-2023 06-19-2023 Episodic Septicemia (except in labor) (7 sources) Sepsis; Translations: [Sepsis, unspecified organism] Onset: 08-19-2023 10-07-2023 Episodic Unclassified (1 source) Onset: 02-10-2024 02-10-2024 Unclassified (1 source) Other specified cough; Translations: [Other specified cough] Onset: 01-06-2024 Results Test Name Value Interpretation Reference Range Facility XR CHEST 2 VIEWSon XR CHEST 2 VIEWS FINDINGS: Comparison April [...] detection for pulmonary nodules was performed utilizing [employer] software. FINDINGS: No pleural or pericardial effusion. [...] Blake MD on 05/01/2024 9:36 AM Normal [facility] BLOOD UREA NITROGENon 2023 Urea nitrogen [Mass/Vol] 20 mg/dL Normal 5-27 [facility] Comment on above: Performed By: #### Timmy DENG, BMP #### [facility] ([id number]) [address] [place] [address] 99320 CBC AND AUTO DIFFon 04-13-20 24 ABSOLUTE BASOPHIL 0.0 X10E9/L Normal 0.0-0.2 [facility] Comment on above: Performed By: #### Timmy DENG, BMP #### [facility] ([id number]) [address] [place] [address] 59688 ABSOLUTE NEUTROPHIL 7.1 X10E9/L High 1.5-6.6 [facility] Comment on above: Performed By: #### Timmy DENG, BMP #### [facility] ([id number]) [address] [place] [address] 76828 Basophils/100 WBC (Bld) 0.4 % Normal [facility] Comment on above: Performed By: #### Timmy DENG, BMP #### [facility] ([id number]) [address] [place] [address] 54714 Eosinophils (Bld) [#/Vol] 0.3 10*3/uL Normal 0.0-0.4 [facility] Comment on above: Performed By: #### Timmy DENG, BMP #### [facility] ([id number]) [address] [place] [address] 07963 Eosinophils/100 WBC (Bld) 2.8 % Normal [facility] Comment on above: Performed By: #### C SOWMYA, BMP #### [facility] ([id number]) [address] [place] [address] 71564 Erythrocyte distribution width (RBC) [Ratio] 19.0 % High 11.5-15.0 [facility] Comment on above: Performed By: #### C SOWMYA, BMP #### [facility] ([id number]) [address] [place] [address] 45777 Hematocrit (Bld) [Volume fraction] 27.8 % Low 35-47 [facility] Comment on above: Performed By: #### C SOWMYA, BMP #### [facility] ([id number]) [address] [place] [address] 98538 Hemoglobin (Bld) [Mass/Vol] 9.0 g/dL Low 11.7-15.5 [facility] Comment on above: Performed By: #### C SOWMYA, BMP #### [facility] ([id number]) [address] [place] [address] 95998 Lymphocytes (Bld) [#/Vol] 3.2 10*3/uL Normal 1.0-3.5 [facility] Comment on above: Performed By: #### C SOWMYA, BMP #### [facility] ([id number]) [address] [place] [address] 63598 Lymphocytes/100 WBC (Bld) 27.2 % Normal [facility] Comment on above: Performed By: #### C SOWMYA, BMP #### [facility] ([id number]) [address] [place] [address] 04503 MCH (RBC) [Entitic mass] 24.5 pg Low 27-34 [facility] Comment on above: Performed By: #### C SOWMYA, BMP #### [facility] ([id number]) [address] [place] [address] 48104 MCHC (RBC) [Mass/Vol] 32.3 g/dL Normal 32-36 [facility] Comment on above: Performed By: #### C SOWMYA, BMP #### [facility] ([id number]) [address] [place] [address] 60704 MCV (RBC) [Entitic vol] 76 fL Low 80-100 [facility] Comment on above: Performed By: #### C SOWMYA, BMP #### [facility] ([id number]) [address] [place] [address] 43688 Monocytes (Bld) [#/Vol] 1.0 10*3/uL High 0-0.9 [facility] Comment on above: Performed By: #### C SOWMYA, BMP #### [facility] ([id number]) [address] [place] [address] 16333 Monocytes/100 WBC (Bld) 8.4 % Normal [facility] Comment on above: Performed By: #### C SOWMYA, BMP #### [facility] ([id number]) [address] [place] [address] 28317 Neutrophils/100 WBC (Bld) 61.2 % Normal [facility] Comment on above: Performed By: #### C SOWMYA, BMP #### [facility] ([id number]) [address] [place] [address] 45545 Platelet mean volume (Bld) [Entitic vol] 6.8 fL Low 7-12 [facility] Comment on above: Performed By: #### C SOWMYA, BMP #### [facility] ([id number]) [address] [place] [address] 42301 Platelets (Bld) [#/Vol] 353 10*3/uL Normal 150-450 [facility] Comment on above: Performed By: #### C BCA, BMP #### [facility] ([id number]) [address] [place] [address] 69968 RBC COUNT 3.67 X10E12/L Low 3.80-5.20 [facility] Comment on above: Performed By: #### C SOWMYA, BMP #### [facility] ([id number]) [address] [place] [address] 84132 WBC (Bld) [#/Vol] 11.7 10*3/uL High 4.0-11.0 [facility] Comment on above: Performed By: #### C SOWMYA, BMP #### [facility] ([id number]) [address] [place] [address] 28725 CREATININEon 04-13-2024 Creatinine [Mass/Vol] 1.16 mg/dL High 0.40-1.00 [facility] Comment on above: Result Comment: METH OD TRACEABLE TO IDMS STANDARD Performed By: #### C SOWMYA, BMP #### [facility] ([id number]) [address] [place] [address] 39972 GFR/1.73 sq M.predicted among non-blacks MDRD (S/P/Bld) [Vol rate/Area] 48 mL/min/{1.73_m2} Low >59 [facility] Comment on above: Result Comment: Reported eGFR is based on the CKD-EPI 2020 equation that does not use a race coefficient. Performed By: #### C SOWMYA, BMP #### [facility] ([id number]) [address] [place] [address] 29090 ELECTROLYTESon 04-13-2024 Anion gap [Moles/Vol] 4 mmol/L Low 5-15 [facility] Comment on above: Performed By: #### C BCA, BMP #### [facility] ([id number]) [address] [place] [address] 67727 Chloride [Moles/Vol] 106 mmol/L Normal 98-109 [facility] Comment on above: Performed By: #### C SOWMYA, BMP #### [facility] ([id number]) [address] [place] [address] 68782 CO2 [Moles/Vol] 25 mmol/L Normal 22-32 [facility] Comment on above: Performed By: #### C SOWMYA, BMP #### [facility] ([id number]) [address] [place] [address] 95827 Potassium [Moles/Vol] 4.0 mmol/L Normal 3.5-5.0 [facility] Comment on above: Performed By: #### C SOWMYA, BMP #### [facility] ([id number]) [address] [place] [address] 33644 Sodium [Moles/Vol] 135 mmol/L Normal 134-146 [facility] Comment on above: Performed By: #### C SOWMYA, BMP #### [facility] ([id number]) [address] [place] [address] 76406 BLOOD UREA NITROGENon 2023 Urea nitrogen [Mass/Vol] 19 mg/dL Normal 5-27 [facility] Comment on above: Performed By: #### C SOWMYA, BMP #### [facility] ([id number]) [address] [place] [address] 03675 CBC AND AUTO DIFFon 04-08-20 24 ABSOLUTE BASOPHIL 0.1 X10E9/L Normal 0.0-0.2 [facility] Comment on above: Performed By: #### C SOWMYA, BMP #### [facility] ([id number]) [address] [place] [address] 94269 ABSOLUTE NEUTROPHIL 4.2 X10E9/L Normal 1.5-6.6 [facility] Comment on above: Performed By: #### C SOWMYA, BMP #### [facility] ([id number]) [address] [place] [address] 77234 Basophils/100 WBC (Bld) 1.1 % Normal [facility] Comment on above: Performed By: #### C SOWMYA, BMP #### [facility] ([id number]) [address] [place] [address] 67044 Eosinophils (Bld) [#/Vol] 0.4 10*3/uL Normal 0.0-0.4 [facility] Comment on above: Performed By: #### C SOWMYA, BMP #### [facility] ([id number]) [address] [place] [address] 28684 Eosinophils/100 WBC (Bld) 4.0 % Normal [facility] Comment on above: Performed By: #### C SOWMYA, BMP #### [facility] ([id number]) [address] [place] [address] 16569 Erythrocyte distribution width (RBC) [Ratio] 18.5 % High 11.5-15.0 [facility] Comment on above: Performed By: #### C SOWMYA, BMP #### [facility] ([id number]) [address] [place] [address] 88250 Hematocrit (Bld) [Volume fraction] 28.4 % Low 35-47 [facility] Comment on above: Performed By: #### C SOWMYA, BMP #### [facility] ([id number]) [address] [place] [address] 91990 Hemoglobin (Bld) [Mass/Vol] 9.4 g/dL Low 11.7-15.5 [facility] Comment on above: Performed By: #### C SOWMYA, BMP #### [facility] ([id number]) [address] [place] [address] 07167 Lymphocytes (Bld) [#/Vol] 3.3 10*3/uL Normal 1.0-3.5 [facility] Comment on above: Performed By: #### C BCA, BMP #### [facility] ([id number]) [address] [place] [address] 38985 Lymphocytes/100 WBC (Bld) 37.1 % Normal [facility] Comment on above: Performed By: #### C BCA, BMP #### [facility] ([id number]) [address] [place] [address] 74417 MCH (RBC) [Entitic mass] 24.9 pg Low 27-34 [facility] Comment on above: Performed By: #### C SOWMYA, BMP #### [facility] ([id number]) [address] [place] [address] 63617 MCHC (RBC) [Mass/Vol] 33.0 g/dL Normal 32-36 [facility] Comment on above: Performed By: #### C SOWMYA, BMP #### [facility] ([id number]) [address] [place] [address] 95525 MCV (RBC) [Entitic vol] 76 fL Low 80-100 [facility] Comment on above: Performed By: #### C SOWMYA, BMP #### [facility] ([id number]) [address] [place] [address] 80442 Monocytes (Bld) [#/Vol] 1.0 10*3/uL High 0-0.9 [facility] Comment on above: Performed By: #### C SOWMYA, BMP #### [facility] ([id number]) [address] [place] [address] 27518 Monocytes/100 WBC (Bld) 10.9 % Normal [facility] Comment on above: Performed By: #### C BCA, BMP #### [facility] ([id number]) [address] [place] [address] 45267 Neutrophils/100 WBC (Bld) 46.9 % Normal [facility] Comment on above: Performed By: #### C SOWMYA, BMP #### [facility] ([id number]) [address] [place] [address] 35834 Platelet mean volume (Bld) [Entitic vol] 6.7 fL Low 7-12 [facility] Comment on above: Performed By: #### C SOWMYA, BMP #### [facility] ([id number]) [address] [place] [address] 52243 Platelets (Bld) [#/Vol] 367 10*3/uL Normal 150-450 [facility] Comment on above: Performed By: #### C SOWMYA, BMP #### [facility] ([id number]) [address] [place] [address] 68404 RBC COUNT 3.76 X10E12/L Low 3.80-5.20 [facility] Comment on above: Performed By: #### Timmy DENG, BMP #### [facility] ([id number]) [address] [place] [address] 30726 WBC (Bld) [#/Vol] 9.0 10*3/uL Normal 4.0-11.0 [facility] Comment on above: Performed By: #### Timmy DENG, BMP #### [facility] ([id number]) [address] [place] [address] 79911 CREATININEon 04-08-2024 Creatinine [Mass/Vol] 1.09 mg/dL High 0.40-1.00 [facility] Comment on above: Result Comment: METH OD TRACEABLE TO IDMS STANDARD Performed By: #### C SOWMYA, BMP #### [facility] ([id number]) [address] [place] [address] 07670 GFR/1.73 sq M.predicted among non-blacks MDRD (S/P/Bld) [Vol rate/Area] 52 mL/min/{1.73_m2} Low >59 [facility] Comment on above: Result Comment: Reported eGFR is based on the CKD-EPI 2020 equation that does not use a race coefficient. Performed By: #### C BCA, BMP #### [facility] ([id number]) [address] [place] [address] 23422 ELECTROLYTESon 04-08-2024 Anion gap [Moles/Vol] 8 mmol/L Normal 5-15 [facility] Comment on above: Performed By: #### C BCA, BMP #### [facility] ([id number]) [address] [place] [address] 19825 Chloride [Moles/Vol] 107 mmol/L Normal 98-109 [facility] Comment on above: Performed By: #### C BCA, BMP #### [facility] ([id number]) [address] [place] [address] 07784 CO2 [Moles/Vol] 24 mmol/L Normal 22-32 [facility] Comment on above: Performed By: #### C BCA, BMP #### [facility] ([id number]) [address] [place] [address] 27937 Potassium [Moles/Vol] 3.8 mmol/L Normal 3.5-5.0 [facility] Comment on above: Performed By: #### C BCA, BMP #### [facility] ([id number]) [address] [place] [address] 22726 Sodium [Moles/Vol] 139 mmol/L Normal 134-146 [facility] Comment on above: Performed By: #### C BCA, BMP #### [facility] ([id number]) [address] [place] [address] 27135 BLOOD UREA NITROGENon 2023 Urea nitrogen [Mass/Vol] 20 mg/dL Normal 5-27 [facility] Comment on above: Performed By: #### C BCA, BMP #### [facility] ([id number]) [address] [place] [address] 75612 CBC AND AUTO DIFFon 04-02-20 24 ABSOLUTE BASOPHIL 0.1 X10E9/L Normal 0.0-0.2 [facility] Comment on above: Performed By: #### Timmy DENG, BMP #### [facility] ([id number]) [address] [place] [address] 98521 ABSOLUTE NEUTROPHIL 4.8 X10E9/L Normal 1.5-6.6 [facility] Comment on above: Performed By: #### Timmy DENG, BMP #### [facility] ([id number]) [address] [place] [address] 55469 Basophils/100 WBC (Bld) 0.7 % Normal [facility] Comment on above: Performed By: #### Timmy DENG, BMP #### [facility] ([id number]) [address] [place] [address] 62995 Eosinophils (Bld) [#/Vol] 0.2 10*3/uL Normal 0.0-0.4 [facility] Comment on above: Performed By: #### Timmy DENG, BMP #### [facility] ([id number]) [address] [place] [address] 09475 Eosinophils/100 WBC (Bld) 2.5 % Normal [facility] Comment on above: Performed By: #### Timmy DENG, BMP #### [facility] ([id number]) [address] [place] [address] 90463 Erythrocyte distribution width (RBC) [Ratio] 18.6 % High 11.5-15.0 [facility] Comment on above: Performed By: #### Timmy DENG, BMP #### [facility] ([id number]) [address] [place] [address] 71040 Hematocrit (Bld) [Volume fraction] 28.2 % Low 35-47 [facility] Comment on above: Performed By: #### C SOWMYA, BMP #### [facility] ([id number]) [address] [place] [address] 18099 Hemoglobin (Bld) [Mass/Vol] 9.1 g/dL Low 11.7-15.5 [facility] Comment on above: Performed By: #### C SOWMYA, BMP #### [facility] ([id number]) [address] [place] [address] 65516 Lymphocytes (Bld) [#/Vol] 3.2 10*3/uL Normal 1.0-3.5 [facility] Comment on above: Performed By: #### C SOWMYA, BMP #### [facility] ([id number]) [address] [place] [address] 31252 Lymphocytes/100 WBC (Bld) 34.4 % Normal [facility] Comment on above: Performed By: #### C SOWMYA, BMP #### [facility] ([id number]) [address] [place] [address] 81143 MCH (RBC) [Entitic mass] 24.5 pg Low 27-34 [facility] Comment on above: Performed By: #### C SOWMYA, BMP #### [facility] ([id number]) [address] [place] [address] 12540 MCHC (RBC) [Mass/Vol] 32.4 g/dL Normal 32-36 [facility] Comment on above: Performed By: #### C SOWMYA, BMP #### [facility] ([id number]) [address] [place] [address] 78685 MCV (RBC) [Entitic vol] 76 fL Low 80-100 [facility] Comment on above: Performed By: #### C SOWMYA, BMP #### [facility] ([id number]) [address] [place] [address] 89066 Monocytes (Bld) [#/Vol] 1.0 10*3/uL High 0-0.9 [facility] Comment on above: Performed By: #### C SOWMYA, BMP #### [facility] ([id number]) [address] [place] [address] 16040 Monocytes/100 WBC (Bld) 11.1 % Normal [facility] Comment on above: Performed By: #### C SOWMYA, BMP #### [facility] ([id number]) [address] [place] [address] 89521 Neutrophils/100 WBC (Bld) 51.3 % Normal [facility] Comment on above: Performed By: #### C SOWMYA, BMP #### [facility] ([id number]) [address] [place] [address] 85195 Platelet mean volume (Bld) [Entitic vol] 6.9 fL Low 7-12 [facility] Comment on above: Performed By: #### C SOWMYA, BMP #### [facility] ([id number]) [address] [place] [address] 91708 Platelets (Bld) [#/Vol] 319 10*3/uL Normal 150-450 [facility] Comment on above: Performed By: #### C SOWMYA, BMP #### [facility] ([id number]) [address] [place] [address] 91026 RBC COUNT 3.72 X10E12/L Low 3.80-5.20 [facility] Comment on above: Performed By: #### C BCA, BMP #### [facility] ([id number]) [address] [place] [address] 38591 WBC (Bld) [#/Vol] 9.4 10*3/uL Normal 4.0-11.0 [facility] Comment on above: Performed By: #### C SOWMYA, BMP #### [facility] ([id number]) [address] [place] [address] CREATININEon 04-02-2024 Creatinine [Mass/Vol] 1.13 mg/dL High 0.40-1.00 [facility] Comment on above: Result Comment: METH OD TRACEABLE TO IDMS STANDARD Performed By: #### C SOWMYA, BMP #### [facility] ([id number]) [address] [place] [address] 51926 GFR/1.73 sq M.predicted among non-blacks MDRD (S/P/Bld) [Vol rate/Area] 50 mL/min/{1.73_m2} Low >59 [facility] Comment on above: Result Comment: Reported eGFR is based on the CKD-EPI 2020 equation that does not use a race coefficient. Performed By: #### C SOWMYA, BMP #### [facility] ([id number]) [address] [place] [address] 14500 ELECTROLYTESon 04-02-2024 Anion gap [Moles/Vol] 7 mmol/L Normal 5-15 [facility] Comment on above: Performed By: #### C SOWMYA, BMP #### [facility] ([id number]) [address] [place] [address] 64092 Chloride [Moles/Vol] 107 mmol/L Normal 98-109 [facility] Comment on above: Performed By: #### C BCA, BMP #### [facility] ([id number]) [address] [place] [address] 78003 CO2 [Moles/Vol] 25 mmol/L Normal 22-32 [facility] Comment on above: Performed By: #### C BCA, BMP #### [facility] ([id number]) [address] [place] [address] 69569 Potassium [Moles/Vol] 4.1 mmol/L Normal 3.5-5.0 [facility] Comment on above: Performed By: #### C BCA, BMP #### [facility] ([id number]) [address] [place] [address] 18007 Sodium [Moles/Vol] 139 mmol/L Normal 134-146 [facility] Comment on above: Performed By: #### C SOWMYA, BMP #### [facility] ([id number]) [address] [place] [address] 61175 BASIC METABOLIC PANLon 03-30 Anion gap [Moles/Vol] 8 mmol/L Normal 5-15 [facility] Comment on above: Performed By: #### C SOWMYA, BMP #### [facility] ([id number]) [address] [place] [address] 03385 Calcium [Mass/Vol] 9.1 mg/dL Normal 8.5-10.5 [facility] Comment on above: Performed By: #### C SOWMYA, BMP #### [facility] ([id number]) [address] [place] [address] 86942 Chloride [Moles/Vol] 104 mmol/L Normal 98-109 [facility] Comment on above: Performed By: #### C SOWMYA, BMP #### [facility] ([id number]) [address] [place] [address] 18753 CO2 [Moles/Vol] 26 mmol/L Normal 22-32 [facility] Comment on above: Performed By: #### C SOWMYA, BMP #### [facility] ([id number]) [address] [place] [address] 95431 Creatinine [Mass/Vol] 1.14 mg/dL High 0.40-1.00 [facility] Comment on above: Result Comment: METH OD TRACEABLE TO IDMS STANDARD Performed By: #### C SOWMYA, BMP #### [facility] ([id number]) [address] [place] [address] 87526 GFR/1.73 sq M.predicted among non-blacks MDRD (S/P/Bld) [Vol rate/Area] 49 mL/min/{1.73_m2} Low >59 [facility] Comment on above: Result Comment: Reported eGFR is based on the CKD-EPI 2020 equation that does not use a race coefficient. Performed By: #### C SOWMYA, BMP #### [facility] ([id number]) [address] [place] [address] 21790 Glucose [Mass/Vol] 101 mg/dL High 65-99 [facility] Comment on above: Performed By: #### C SOWMYA, BMP #### [facility] ([id number]) [address] [place] [address] 22353 Potassium [Moles/Vol] 4.2 mmol/L Normal 3.5-5.0 [facility] Comment on above: Performed By: #### C SOWMYA, BMP #### [facility] ([id number]) [address] [place] [address] 90225 Sodium [Moles/Vol] 138 mmol/L Normal 134-146 [facility] Comment on above: Performed By: #### C SOWMYA, BMP #### [facility] ([id number]) [address] [place] [address] 87944 Urea nitrogen [Mass/Vol] 21 mg/dL Normal 5-27 [facility] Comment on above: Performed By: #### C SOWMYA, BMP #### [facility] ([id number]) [address] [place] [address] 66922 CBC AND AUTO DIFFon 03-18-20 24 ABSOLUTE BASOPHIL 0.1 X10E9/L Normal 0.0-0.2 [facility] Comment on above: Performed By: #### C SOWMYA, BMP #### [facility] ([id number]) [address] [place] [address] 00118 ABSOLUTE NEUTROPHIL 4.5 X10E9/L Normal 1.5-6.6 [facility] Comment on above: Performed By: #### C SOWMYA, BMP #### [facility] ([id number]) [address] [place] [address] 32196 Basophils/100 WBC (Bld) 0.7 % Normal [facility] Comment on above: Performed By: #### C SOWMYA, BMP #### [facility] ([id number]) [address] [place] [address] 97633 Eosinophils (Bld) [#/Vol] 0.4 10*3/uL Normal 0.0-0.4 [facility] Comment on above: Performed By: #### C SOWMYA, BMP #### [facility] ([id number]) [address] [place] [address] 83159 Eosinophils/100 WBC (Bld) 4.1 % Normal [facility] Comment on above: Performed By: #### C SOWMYA, BMP #### [facility] ([id number]) [address] [place] [address] 58467 Erythrocyte distribution width (RBC) [Ratio] 18.8 % High 11.5-15.0 [facility] Comment on above: Performed By: #### C SOWMYA, BMP #### [facility] ([id number]) [address] [place] [address] 58257 Hematocrit (Bld) [Volume fraction] 28.0 % Low 35-47 [facility] Comment on above: Performed By: #### C SOWMYA, BMP #### [facility] ([id number]) [address] [place] [address] 21068 Hemoglobin (Bld) [Mass/Vol] 9.1 g/dL Low 11.7-15.5 [facility] Comment on above: Performed By: #### C SOWMYA, BMP #### [facility] ([id number]) [address] [place] [address] 91475 Lymphocytes (Bld) [#/Vol] 2.9 10*3/uL Normal 1.0-3.5 [facility] Comment on above: Performed By: #### C SOWMYA, BMP #### [facility] ([id number]) [address] [place] [address] 46025 Lymphocytes/100 WBC (Bld) 33.2 % Normal [facility] Comment on above: Performed By: #### C SOWMYA, BMP #### [facility] ([id number]) [address] [place] [address] 36434 MCH (RBC) [Entitic mass] 24.4 pg Low 27-34 [facility] Comment on above: Performed By: #### C SOWMYA, BMP #### [facility] ([id number]) [address] [place] [address] 33845 MCHC (RBC) [Mass/Vol] 32.3 g/dL Normal 32-36 [facility] Comment on above: Performed By: #### C SOWMYA, BMP #### [facility] ([id number]) [address] [place] [address] 71136 MCV (RBC) [Entitic vol] 76 fL Low 80-100 [facility] Comment on above: Performed By: #### C SOWMYA, BMP #### [facility] ([id number]) [address] [place] [address] 83675 Monocytes (Bld) [#/Vol] 0.8 10*3/uL Normal 0-0.9 [facility] Comment on above: Performed By: #### C SOWMYA, BMP #### [facility] ([id number]) [address] [place] [address] 05980 Monocytes/100 WBC (Bld) 9.4 % Normal [facility] Comment on above: Performed By: #### C SOWMYA, BMP #### [facility] ([id number]) [address] [place] [address] 14185 Neutrophils/100 WBC (Bld) 52.6 % Normal [facility] Comment on above: Performed By: #### C SOWMYA, BMP #### [facility] ([id number]) [address] [place] [address] 32011 Platelet mean volume (Bld) [Entitic vol] 6.8 fL Low 7-12 [facility] Comment on above: Performed By: #### C SOWMYA, BMP #### [facility] ([id number]) [address] [place] [address] 50037 Platelets (Bld) [#/Vol] 405 10*3/uL Normal 150-450 [facility] Comment on above: Performed By: #### Timmy DENG, BMP #### [facility] ([id number]) [address] [place] [address] 93484 RBC COUNT 3.71 X10E12/L Low 3.80-5.20 [facility] Comment on above: Performed By: #### Timmy DENG, BMP #### [facility] ([id number]) [address] [place] [address] 89554 WBC (Bld) [#/Vol] 8.6 10*3/uL Normal 4.0-11.0 [facility] Comment on above: Performed By: #### Timmy DENG, BMP #### [facility] ([id number]) [address] [place] [address] 47980 BLOOD UREA NITROGENon 2023 Urea nitrogen [Mass/Vol] 14 mg/dL Normal 5-27 [facility] Comment on above: Performed By: #### Timmy DENG, BMP #### [facility] ([id number]) [address] [place] [address] 14416 CBC AND AUTO DIFFon 03-11-20 24 ABSOLUTE BASOPHIL 0.1 X10E9/L Normal 0.0-0.2 [facility] Comment on above: Performed By: #### Timmy DENG, BMP #### [facility] ([id number]) [address] [place] [address] 73164 ABSOLUTE NEUTROPHIL 6.8 X10E9/L High 1.5-6.6 [facility] Comment on above: Performed By: #### C SOWMYA, BMP #### [facility] ([id number]) [address] [place] [address] 08033 Basophils/100 WBC (Bld) 0.6 % Normal [facility] Comment on above: Performed By: #### C SOWMYA, BMP #### [facility] ([id number]) [address] [place] [address] 55475 Eosinophils (Bld) [#/Vol] 0.4 10*3/uL Normal 0.0-0.4 [facility] Comment on above: Performed By: #### C SOWMYA, BMP #### [facility] ([id number]) [address] [place] [address] 38354 Eosinophils/100 WBC (Bld) 3.7 % Normal [facility] Comment on above: Performed By: #### C SOWMYA, BMP #### [facility] ([id number]) [address] [place] [address] 53531 Erythrocyte distribution width (RBC) [Ratio] 18.8 % High 11.5-15.0 [facility] Comment on above: Performed By: #### C SOWMYA, BMP #### [facility] ([id number]) [address] [place] [address] 34358 Hematocrit (Bld) [Volume fraction] 27.4 % Low 35-47 [facility] Comment on above: Performed By: #### C SOWMYA, BMP #### [facility] ([id number]) [address] [place] [address] 87411 Hemoglobin (Bld) [Mass/Vol] 8.8 g/dL Low 11.7-15.5 [facility] Comment on above: Performed By: #### C SOWMYA, BMP #### [facility] ([id number]) [address] [place] [address] 47725 Lymphocytes (Bld) [#/Vol] 3.3 10*3/uL Normal 1.0-3.5 [facility] Comment on above: Performed By: #### C SOWMYA, BMP #### [facility] ([id number]) [address] [place] [address] 47917 Lymphocytes/100 WBC (Bld) 27.7 % Normal [facility] Comment on above: Performed By: #### C SOWMYA, BMP #### [facility] ([id number]) [address] [place] [address] 15777 MCH (RBC) [Entitic mass] 24.7 pg Low 27-34 [facility] Comment on above: Performed By: #### C SOWMYA, BMP #### [facility] ([id number]) [address] [place] [address] 22949 MCHC (RBC) [Mass/Vol] 32.3 g/dL Normal 32-36 [facility] Comment on above: Performed By: #### C SOWMYA, BMP #### [facility] ([id number]) [address] [place] [address] 84791 MCV (RBC) [Entitic vol] 77 fL Low 80-100 [facility] Comment on above: Performed By: #### C SOWMYA, BMP #### [facility] ([id number]) [address] [place] [address] 17324 Monocytes (Bld) [#/Vol] 1.2 10*3/uL High 0-0.9 [facility] Comment on above: Performed By: #### C SOWMYA, BMP #### [facility] ([id number]) [address] [place] [address] 45259 Monocytes/100 WBC (Bld) 10.4 % Normal [facility] Comment on above: Performed By: #### C SOWMYA, BMP #### [facility] ([id number]) [address] [place] [address] 75773 Neutrophils/100 WBC (Bld) 57.6 % Normal [facility] Comment on above: Performed By: #### C SOWMYA, BMP #### [facility] ([id number]) [address] [place] [address] 84804 Platelet mean volume (Bld) [Entitic vol] 7.3 fL Normal 7-12 [facility] Comment on above: Performed By: #### Timmy DENG, BMP #### [facility] ([id number]) [address] [place] [address] 14652 Platelets (Bld) [#/Vol] 255 10*3/uL Normal 150-450 [facility] Comment on above: Performed By: #### C SOWMYA, BMP #### [facility] ([id number]) [address] [place] [address] 97008 RBC COUNT 3.58 X10E12/L Low 3.80-5.20 [facility] Comment on above: Performed By: #### C SOWMYA, BMP #### [facility] ([id number]) [address] [place] [address] 67538 WBC (Bld) [#/Vol] 11.8 10*3/uL High 4.0-11.0 [facility] Comment on above: Performed By: #### C SOWMYA, BMP #### [facility] ([id number]) [address] [place] [address] 85509 CREATININEon 03-11-2024 Creatinine [Mass/Vol] 1.09 mg/dL High 0.40-1.00 [facility] Comment on above: Result Comment: METH OD TRACEABLE TO IDMS STANDARD Performed By: #### C SOWMYA, BMP #### [facility] ([id number]) [address] [place] [address] 71719 GFR/1.73 sq M.predicted among non-blacks MDRD (S/P/Bld) [Vol rate/Area] 52 mL/min/{1.73_m2} Low >59 [facility] Comment on above: Result Comment: Reported eGFR is based on the CKD-EPI 2020 equation that does not use a race coefficient. Performed By: #### C BCA, BMP #### [facility] ([id number]) [address] [place] [address] 02134 ELECTROLYTESon 03-11-2024 Anion gap [Moles/Vol] 7 mmol/L Normal -15 [facility] Comment on above: Performed By: #### E LEC, 3094-0, [employer] SPECIALIST, CBCA #### [facility] ([id number]) [address] [place] [address] 85074 Chloride [Moles/Vol] 106 mmol/L Normal 98-109 [facility] Comment on above: Performed By: #### E LEC, 3094-0, EROS[employer] CONTROL SPECIALIST, CBCA #### [facility] ([id number]) [address] [place] [address] 78667 CO2 [Moles/Vol] 27 mmol/L Normal 22-32 [facility] Comment on above: Performed By: #### E LEC, 3094-0, EROSION CONTROL SPECIALIST, CBCA #### [facility] ([id number]) [address] [place] [address] 29034 Potassium [Moles/Vol] 4.2 mmol/L Normal 3.5-5.0 [facility] Comment on above: Performed By: #### E LEC, 3094-0, EROSION CONTROL SPECIALIST, CBCA #### [facility] ([id number]) [address] [place] [address] 25436 Sodium [Moles/Vol] 140 mmol/L Normal 134-146 [facility] Comment on above: Performed By: #### E LEC, 3094-0, EROSION CONTROL SPECIALIST, CBCA #### [facility] ([id number]) [address] [place] [address] 96245 CBC AND AUTO DIFFon 03-05-20 24 ABSOLUTE BASOPHIL 0.1 X10E9/L Normal 0.0-0.2 [facility] Comment on above: Performed By: #### C BCA #### [facility] ([id number]) [address] [place] [address] 36005 #### 72441-9 #### [facility] ([id number]) [address] [place] [address], [address] [place] [address] ABSOLUTE NEUTROPHIL 6.2 X10E9/L Normal 1.5-6.6 [facility] Comment on above: Performed By: #### C BCA #### [facility] ([id number]) [address] [place] [address] 10834 #### 99051-0 #### [facility] ([id number]) [address] [place] [address], [address] [place] [address] Basophils/100 WBC (Bld) 0.6 % Normal [facility] Comment on above: Performed By: #### C BCA #### [facility] ([id number]) [address] [place] [address] 63398 #### 98975-5 #### [facility] ([id number]) [address] [place] [address], [address] [place] [address] Eosinophils (Bld) [#/Vol] 0.3 10*3/uL Normal 0.0-0.4 [facility] Comment on above: Performed By: #### C BCA #### [facility] ([id number]) [address] [place] [address] 74364 #### 11454-9 #### [facility] ([id number]) [address], [address] [place] [address] Eosinophils/100 WBC (Bld) 2.4 % Normal [facility] Comment on above: Performed By: #### C BCA #### [facility] ([id number]) [address] [place] [address] 40992 #### 12445-5 #### [facility] ([id number]) [address], [address] [place] [address] Erythrocyte distribution width (RBC) [Ratio] 18.9 % High 11.5-15.0 [facility] Comment on above: Performed By: #### C BCA #### [facility] ([id number]) [address] [place] [address] 67393 #### 78500-0 #### [facility] ([id number]) [address], [address] [place] [address] Hematocrit (Bld) [Volume fraction] 30.3 % Low 35-47 [facility] Comment on above: Performed By: #### C BCA #### [facility] ([id number]) [address] [place] [address] 92026 #### 17791-7 #### [facility] ([id number]) [address], [address] [place] [address] Hemoglobin (Bld) [Mass/Vol] 9.7 g/dL Low 11.7-15.5 [facility] Comment on above: Performed By: #### C BCA #### [facility] ([id number]) [address] [place] [address] 39215 #### 53431-6 #### [facility] ([id number]) [address], [address] [place] [address] Lymphocytes (Bld) [#/Vol] 3.8 10*3/uL High 1.0-3.5 [facility] Comment on above: Performed By: #### C BCA #### [facility] ([id number]) [address] [place] [address] 14974 #### 10819-5 #### [facility] ([id number]) [address], [address] [place] [address] Lymphocytes/100 WBC (Bld) 32.9 % Normal [facility] Comment on above: Performed By: #### C BCA #### [facility] ([id number]) [address] [place] [address]84[address] #### [id number] #### [facility] ([id number]) [address], [address] [place] [address] MCH (RBC) [Entitic mass] 24.6 pg Low 27-34 [facility] Comment on above: Performed By: #### C BCA #### [facility] ([id number]) [address] [place] [address]96 #### [id number] #### [facility] ([id number]) [address], [address] [place] [address] MCHC (RBC) [Mass/Vol] 32.1 g/dL Normal 32-36 [facility] Comment on above: Performed By: #### C BCA #### [facility] ([id number]) [address] [place] [address]52 #### [id number] #### [facility] ([id number]) [address], [address] [place] [address] MCV (RBC) [Entitic vol] 77 fL Low 80-100 [facility] Comment on above: Performed By: #### C BCA #### [facility] ([id number]) [address] [place] [address]1917 #### [id number] #### [facility] ([id number]) [address], [address] [place] [address] Monocytes (Bld) [#/Vol] 1.3 10*3/uL High 0-0.9 [facility] Comment on above: Performed By: #### C BCA #### [facility] ([id number]) [address] [place] [address]47[address] #### [id number] #### [facility] ([id number]) [address], [address] [place] [address] Monocytes/100 WBC (Bld) 11.0 % Normal [facility] Comment on above: Performed By: #### C BCA #### [facility] ([id number]) [address] [place] [address]31 #### [id number] #### [facility] ([id number]) [address], [address] [place] [address] Neutrophils/100 WBC (Bld) 53.1 % Normal [facility] [facility] Comment on above: Performed By: #### C BCA #### [facility] ([id number]) [address] [place] [address] 38569 #### [id number] #### [facility] ([id number]) [address], [address] [place] [address] Platelet mean volume (Bld) [Entitic vol] 7.5 fL Normal 7-12 [facility] Comment on above: Performed By: #### C BCA #### [facility] ([id number]) [address] [place] [address] 28418 #### [id number] #### [facility] ([id number]) [address] [place] [address] Platelets (Bld) [#/Vol] 320 10*3/uL Normal 150-450 [facility] Comment on above: Performed By: #### C BCA #### [facility] ([id number]) [address] [place] [address] 24883 #### [id number] #### [facility] ([id number]) [address] [facility] [address] [place] [address] RBC COUNT 3.96 X10E12/L Normal 3.80-5.20 [facility] Comment on above: Performed By: #### C BCA #### [facility] ([id number]) [address] [place] [address] 12045 #### [id number] #### [facility] ([id number]) [address] [facility] [address] [place] [address] WBC (Bld) [#/Vol] 11.7 10*3/uL High 4.0-11.0 [facility] Comment on above: Performed By: #### C BCA #### [facility] ([id number]) [address] [place] [address] 22305 #### [id number] #### [facility] ([id number]) [address] [facility] [address] [place] [address] ESR Photometric method (Bld) [Velocity]on 03-05-2024 ESR, ERYTHROCYTE SEDIMENTATION RATE 43 mm/h High 0-30 [facility] Comment on above: Performed By: #### C BCA #### [facility] ([id number]) [address] [place] [address] 10786 #### [id number] #### [facility] ([id number]) [address] [facility] [address] [place] [address] FL SWALLOW MOTILITY FUNCTION on 03-04-2024 FL [...] Dowell MD on 03/04/2024 10:58 AM Normal [facility] URINALYSISon 03-03-2024 Bilirubin Ql (U) Negative Normal NEG [facility] Comment on above: Performed By: #### U A #### [facility] ([id number]) [address] [place] [address] 005[address] BLOOD/HGB Negative Normal NEG [facility] Comment on above: Performed By: #### U A #### [facility] ([id number]) [address] [place] [address] 87609 Color (U) YELLOW Normal YELLOW [facility] Comment on above: Performed By: #### U A #### [facility] ([id number]) [address] [place] [address] 59030 Glucose Ql (U) Negative Normal NEG [facility] Comment on above: Performed By: #### U A #### [facility] ([id number]) [address] [place] [address] 50461 Ketones Ql (U) Negative Normal NEG [facility] Comment on above: Performed By: #### U A #### [facility] ([id number]) [address] [place] [address] 98465 Leukocyte esterase Test strip Ql (U) Negative Normal NEG [facility] Comment on above: Performed By: #### U A #### [facility] ([id number]) [address] [place] [address] 44265 Nitrite Ql (U) Negative Normal NEG [facility] Comment on above: Performed By: #### U A #### [facility] ([id number]) [address] [place] [address] 83482 pH (U) 6.0 [pH] Normal 5.0-8.5 [facility] Comment on above: Performed By: #### U A #### [facility] ([id number]) [address] [place] [address] 19964 Protein Ql (U) Negative Normal NEG [facility] Comment on above: Performed By: #### U A #### [facility] ([id number]) [address] [place] [address] 49121 Specific gravity (U) [Rel density] 1.020 Normal 1.003-1.[address] [place] [address] Comment on above: Performed By: #### U A #### [facility] ([id number]) [address] [place] [address] [place] [address] TURBIDITY CLEAR Normal CLEAR [facility] Comment on above: Performed By: #### U A #### [facility] ([id number]) [address] [place] [address] 47658 Urobilinogen Qn (U) 0.2 {Jose'U}/dL Normal <1.1 [facility] Comment on above: Performed By: #### U A #### [facility] ([id number]) [address] [place] [address] 29947 URINE CULTUREon 03-03-2024 Bacteria identified Cx Nom (U) CULTURE RESULTS NO GROWTH AT <1000 CFU/mL Normal [facility] Comment on above: Performed By: #### 6 30-4 #### [facility] ([id number]) [address] [facility], [address] [place] [address] BASIC METABOLIC PANLon 03-02 Anion gap [Moles/Vol] 9 mmol/L Normal 5-15 [facility] Comment on above: Performed By: #### C BCA, BMP #### [facility] ([id number]) [address] [place] [address] 27760 Calcium [Mass/Vol] 8.4 mg/dL Low 8.5-10.5 [facility] Comment on above: Performed By: #### C BCA, BMP #### [facility] ([id number]) [address] [place] [address] 68711 Chloride [Moles/Vol] 106 mmol/L Normal 98-109 [facility] Comment on above: Performed By: #### C BCA, BMP #### [facility] ([id number]) [address] [place] [address] 54908 CO2 [Moles/Vol] 27 mmol/L Normal 22-32 [facility] Comment on above: Performed By: #### C BCA, BMP #### [facility] ([id number]) [address] [place] [address] 22614 Creatinine [Mass/Vol] 1.13 mg/dL High 0.40-1.00 [facility] Comment on above: Result Comment: METH OD TRACEABLE TO IDMS STANDARD Performed By: #### C BCA, BMP #### [facility] ([id number]) [address] [place] [address] 09629 GFR/1.73 sq M.predicted among non-blacks MDRD (S/P/Bld) [Vol rate/Area] 50 mL/min/{1.73_m2} Low >59 [facility] Comment on above: Result Comment: Reported eGFR is based on the CKD-EPI 2020 equation that does not use a race coefficient. Performed By: #### C SOWMYA, BMP #### [facility] ([id number]) [address] [place] [address] 46525 Glucose [Mass/Vol] 106 mg/dL High 65-99 [facility] Comment on above: Performed By: #### C SOWMYA, BMP #### [facility] ([id number]) [address] [place] [address] 78375 Potassium [Moles/Vol] 3.4 mmol/L Low 3.5-5.0 [facility] Comment on above: Performed By: #### C SOWMYA, BMP #### [facility] ([id number]) [address] [place] [address] 68732 Sodium [Moles/Vol] 142 mmol/L Normal 134-146 [facility] Comment on above: Performed By: #### C SOWMYA, BMP #### [facility] ([id number]) [address] [place] [address] 13145 Urea nitrogen [Mass/Vol] 35 mg/dL High 5-27 [facility] Comment on above: Performed By: #### C SOWMYA, BMP #### [facility] ([id number]) [address] [place] [address] 85095 CBC AND AUTO DIFFon 05-06 24 ABSOLUTE BASOPHIL 0.1 X10E9/L Normal 0.0-0.2 [facility] Comment on above: Performed By: #### C SOWMYA, BMP #### [facility] ([id number]) [address] [place] [address] 37831 ABSOLUTE NEUTROPHIL 7.0 X10E9/L High 1.5-6.6 [facility] Comment on above: Performed By: #### C SOWMYA, BMP #### [facility] ([id number]) [address] [place] [address] 30785 Basophils/100 WBC (Bld) 0.6 % Normal [facility] Comment on above: Performed By: #### C SOWMYA, BMP #### [facility] ([id number]) [address] [place] [address] 88339 Eosinophils (Bld) [#/Vol] 0.1 10*3/uL Normal 0.0-0.4 [facility] Comment on above: Performed By: #### C SOWMYA, BMP #### [facility] ([id number]) [address] [place] [address] 39992 Eosinophils/100 WBC (Bld) 0.5 % Normal [facility] Comment on above: Performed By: #### C SOWMYA, BMP #### [facility] ([id number]) [address] [place] [address] 23259 Erythrocyte distribution width (RBC) [Ratio] 18.2 % High 11.5-15.0 [facility] Comment on above: Performed By: #### C SOWMYA, BMP #### [facility] ([id number]) [address] [place] [address] 05910 Hematocrit (Bld) [Volume fraction] 30.8 % Low 35-47 [facility] Comment on above: Performed By: #### C SOWMYA, BMP #### [facility] ([id number]) [address] [place] [address] 44799 Hemoglobin (Bld) [Mass/Vol] 10.0 g/dL Low 11.7-15.5 [facility] Comment on above: Performed By: #### C SOWMYA, BMP #### [facility] ([id number]) [address] [place] [address] 71315 Lymphocytes (Bld) [#/Vol] 4.1 10*3/uL High 1.0-3.5 [facility] Comment on above: Performed By: #### C SOWMYA, BMP #### [facility] ([id number]) [address] [place] [address] 62034 Lymphocytes/100 WBC (Bld) 32.1 % Normal [facility] Comment on above: Performed By: #### C SOWMYA, BMP #### [facility] ([id number]) [address] [place] [address] 97173 MCH (RBC) [Entitic mass] 24.9 pg Low 27-34 [facility] Comment on above: Performed By: #### C SOWMYA, BMP #### [facility] ([id number]) [address] [place] [address] 53457 MCHC (RBC) [Mass/Vol] 32.3 g/dL Normal 32-36 [facility] Comment on above: Performed By: #### C SOWMYA, BMP #### [facility] ([id number]) [address] [place] [address] 07531 MCV (RBC) [Entitic vol] 77 fL Low 80-100 [facility] Comment on above: Performed By: #### C SOWMYA, BMP #### [facility] ([id number]) [address] [place] [address] 24174 Monocytes (Bld) [#/Vol] 1.5 10*3/uL High 0-0.9 [facility] Comment on above: Performed By: #### C SOWMYA, BMP #### [facility] ([id number]) [address] [place] [address] 34778 Monocytes/100 WBC (Bld) 11.5 % Normal [facility] Comment on above: Performed By: #### C SOWMYA, BMP #### [facility] ([id number]) [address] [place] [address] 47577 Neutrophils/100 WBC (Bld) 55.3 % Normal [facility] Comment on above: Performed By: #### C SOWMYA, BMP #### [facility] ([id number]) [address] [place] [address] 87096 Platelet mean volume (Bld) [Entitic vol] 7.4 fL Normal 7-12 [facility] Comment on above: Performed By: #### C SOWMYA, BMP #### [facility] ([id number]) [address] [place] [address] 46817 Platelets (Bld) [#/Vol] 360 10*3/uL Normal 150-450 [facility] Comment on above: Performed By: #### C SOWMYA, BMP #### [facility] ([id number]) [address] [place] [address] 75012 RBC COUNT 4.00 X10E12/L Normal 3.80-5.20 [facility] Comment on above: Performed By: #### C SOWMYA, BMP #### [facility] ([id number]) [address] [place] [address] 88568 WBC (Bld) [#/Vol] 12.7 10*3/uL High 4.0-11.0 [facility] Comment on above: Performed By: #### C SOWMYA, BMP #### [facility] ([id number]) [address] [place] [address] 69498 BASIC METABOLIC PANLon 02-26 Anion gap [Moles/Vol] 8 mmol/L Normal 5-15 [facility] Comment on above: Performed By: #### C SOWMYA, BMP #### [facility] ([id number]) [address] [place] [address] 27799 Calcium [Mass/Vol] 8.7 mg/dL Normal 8.5-10.5 [facility] Comment on above: Performed By: #### C SOWMYA, BMP #### [facility] ([id number]) [address] [place] [address] 95050 Chloride [Moles/Vol] 97 mmol/L Low 98-109 [facility] Comment on above: Performed By: #### C SOWMYA, BMP #### [facility] ([id number]) [address] [place] [address] 43892 CO2 [Moles/Vol] 29 mmol/L Normal 22-32 [facility] Comment on above: Performed By: #### C SOWMYA, BMP #### [facility] ([id number]) [address] [place] [address] 51083 Creatinine [Mass/Vol] 1.22 mg/dL High 0.40-1.00 [facility] Comment on above: Result Comment: METH OD TRACEABLE TO IDMS STANDARD Performed By: #### C SOWMYA, BMP #### [facility] ([id number]) [address] [place] [address] 82074 GFR/1.73 sq M.predicted among non-blacks MDRD (S/P/Bld) [Vol rate/Area] 45 mL/min/{1.73_m2} Low >59 [facility] Comment on above: Result Comment: Reported eGFR is based on the CKD-EPI 2020 equation that does not use a race coefficient. Performed By: #### C SOWMYA, BMP #### [facility] ([id number]) [address] [place] [address] 40157 Glucose [Mass/Vol] 123 mg/dL High 65-99 [facility] Comment on above: Performed By: #### C SOWMYA, BMP #### [facility] ([id number]) [address] [place] [address] 63847 Potassium [Moles/Vol] 4.0 mmol/L Normal 3.5-5.0 [facility] Comment on above: Performed By: #### C SOWMYA, BMP #### [facility] ([id number]) [address] [place] [address] 28086 Sodium [Moles/Vol] 134 mmol/L Normal 134-146 [facility] Comment on above: Performed By: #### C SOWMYA, BMP #### [facility] ([id number]) [address] [place] [address] 48683 Urea nitrogen [Mass/Vol] 35 mg/dL High 5-27 [facility] Comment on above: Performed By: #### C SOWMYA, BMP #### [facility] ([id number]) [address] [place] [address] 35350 CBC AND AUTO DIFFon 02-27-20 24 Eosinophils (Bld) [#/Vol] 0.2 10*3/uL Normal 0.0-0.4 [facility] Comment on above: Performed By: #### C SOWMYA, BMP #### [facility] ([id number]) [address] [place] [address] 10164 Eosinophils/100 WBC (Bld) 1.0 % Normal [facility] Comment on above: Performed By: #### C SOWMYA, BMP #### [facility] ([id number]) [address] [place] [address] 04135 Erythrocyte distribution width (RBC) [Ratio] 18.2 % High 11.5-15.0 [facility] Comment on above: Performed By: #### C SOWMYA, BMP #### [facility] ([id number]) [address] [place] [address] 97888 Hematocrit (Bld) [Volume fraction] 35.1 % Normal 35-47 [facility] Comment on above: Performed By: #### C SOWMYA, BMP #### [facility] ([id number]) [address] [place] [address] 91626 Hemoglobin (Bld) [Mass/Vol] 11.4 g/dL Low 11.7-15.5 [facility] Comment on above: Performed By: #### C BCA, BMP #### [facility] ([id number]) [address] [place] [address] 63307 Lymphocytes (Bld) [#/Vol] 4.0 10*3/uL High 1.0-3.5 [facility] Comment on above: Performed By: #### C SOWMYA, BMP #### [facility] ([id number]) [address] [place] [address] 25727 Lymphocytes/100 WBC (Bld) 21.0 % Normal [facility] Comment on above: Performed By: #### C SOWMYA, BMP #### [facility] ([id number]) [address] [place] [address] 32904 MCH (RBC) [Entitic mass] 24.6 pg Low 27-34 [facility] Comment on above: Performed By: #### C SOWMYA, BMP #### [facility] ([id number]) [address] [place] [address] 20773 MCHC (RBC) [Mass/Vol] 32.5 g/dL Normal 32-36 [facility] Comment on above: Performed By: #### C SOWMYA, BMP #### [facility] ([id number]) [address] [place] [address] 08596 MCV (RBC) [Entitic vol] 76 fL Low 80-100 [facility] Comment on above: Performed By: #### C BCA, BMP #### [facility] ([id number]) [address] [place] [address] 45312 Monocytes (Bld) [#/Vol] 1.4 10*3/uL High 0-0.9 [facility] Comment on above: Performed By: #### C BCA, BMP #### [facility] ([id number]) [address] [place] [address] 41498 Monocytes/100 WBC (Bld) 7.6 % Normal [facility] Comment on above: Performed By: #### C BCA, BMP #### [facility] ([id number]) [address] [place] [address] 82712 MYELOCYTE 1.0 % Normal [facility] Comment on above: Performed By: #### C SOWMYA, BMP #### [facility] ([id number]) [address] [place] [address] 30207 Neutrophils (Bld) [#/Vol] 13.1 10*3/uL High 1.5-6.6 [facility] Comment on above: Performed By: #### C SOWMYA, BMP #### [facility] ([id number]) [address] [place] [address] 04943 Platelet mean volume (Bld) [Entitic vol] 7.2 fL Normal 7-12 [facility] Comment on above: Performed By: #### C SOWMYA, BMP #### [facility] ([id number]) [address] [place] [address] 94921 Platelets (Bld) [#/Vol] 398 10*3/uL Normal 150-450 [facility] Comment on above: Performed By: #### C SOWMYA, BMP #### [facility] ([id number]) [address] [place] [address] 15524 RBC COUNT 4.63 X10E12/L Normal 3.80-5.20 [facility] Comment on above: Performed By: #### C SOWMYA, BMP #### [facility] ([id number]) [address] [place] [address] 87903 SEG NEUTROPHIL 69.4 % Normal [facility] Comment on above: Performed By: #### C SOWMYA, BMP #### [facility] ([id number]) [address] [place] [address] 12105 WBC (Bld) [#/Vol] 18.9 10*3/uL High 4.0-11.0 [facility] Comment on above: Performed By: #### C SOWMYA, BMP #### [facility] ([id number]) [address] [facility] [place] [address] CBC AND AUTO DIFFon 02-25-20 24 Band form neutrophils/100 WBC (Bld) 1.0 % Normal [facility] Comment on above: Performed By: #### E LEC #### [facility] ([id number]) [address] [place] [address] Erythrocyte distribution width (RBC) [Ratio] 18.4 % High 11.5-15.0 [facility] Comment on above: Performed By: #### E LEC #### [facility] ([id number]) [address] [place] [address] Hematocrit (Bld) [Volume fraction] 36.0 % Normal 35-47 [facility] Comment on above: Performed By: #### E LEC #### [facility] ([id number]) [address] [place] [address] Hemoglobin (Bld) [Mass/Vol] 11.6 g/dL Low 11.7-15.5 [facility] Comment on above: Performed By: #### E LEC #### [facility] ([id number]) [address] [place] [address] HYPOCHROMIA 1+ Abnormal NONE [facility] Comment on above: Performed By: #### E LEC #### [facility] ([id number]) [address] [place] [address] Lymphocytes (Bld) [#/Vol] 4.6 10*3/uL High 1.0-3.5 [facility] Comment on above: Performed By: #### E LEC #### [facility] ([id number]) [address] [place] [address] Lymphocytes/100 WBC (Bld) 28.0 % Normal [facility] Comment on above: Performed By: #### E LEC #### [facility] ([id number]) [address], [address] [place] [address] MCH (RBC) [Entitic mass] 24.9 pg Low 27-34 [facility] Comment on above: Performed By: #### E LEC #### [facility] ([id number]) [address] [place] [address] MCHC (RBC) [Mass/Vol] 32.3 g/dL Normal 32-36 [facility] Comment on above: Performed By: #### E LEC #### [facility] ([id number]) [address] [place] [address] MCV (RBC) [Entitic vol] 77 fL Low 80-100 [facility] Comment on above: Performed By: #### E LEC #### [facility] ([id number]) [address] [place] [address] Monocytes (Bld) [#/Vol] 1.3 10*3/uL High 0-0.9 [facility] Comment on above: Performed By: #### E LEC #### [facility] ([id number]) [address] [place] [address] Monocytes/100 WBC (Bld) 8.0 % Normal [facility] Comment on above: Performed By: #### E LEC #### [facility] ([id number]) [address] [place] [address] MYELOCYTE 1.0 % Normal [facility] Comment on above: Performed By: #### E LEC #### [facility] ([id number]) [address] [place] [address] Neutrophils (Bld) [#/Vol] 10.2 10*3/uL High 1.5-6.6 [facility] Comment on above: Performed By: #### E LEC #### [facility] ([id number]) [address] [place] [address] Platelet mean volume (Bld) [Entitic vol] 6.8 fL Low 7-12 [facility] Comment on above: Performed By: #### E LEC #### [facility] ([id number]) [address], [address] [place] [address] Platelets (Bld) [#/Vol] 480 10*3/uL High 150-450 [facility] Comment on above: Performed By: #### E LEC #### [facility] ([id number]) [address] [place] [address] RBC COUNT 4.66 X10E12/L Normal 3.80-5.20 [facility] Comment on above: Performed By: #### E LEC #### [facility] ([id number]) [address] [place] [address] SEG NEUTROPHIL 62.0 % Normal [facility] Comment on above: Performed By: #### E LEC #### [facility] ([id number]) [address] [place] [address] WBC (Bld) [#/Vol] 16.3 10*3/uL High 4.0-11.0 [facility] Comment on above: Performed By: #### E LEC #### [facility] ([id number]) [address], [address] [place] [address] COMPREHENSIVE METABOLIC PANE Harsha 02-25-2024 Albumin [Mass/Vol] 2.8 g/dL Low 3.2-5.3 [facility] Comment on above: Performed By: #### E LEC #### [facility] ([id number]) [address], [address] [place] [address] ALP [Catalytic activity/Vol] 61 U/L Normal 39-130 [facility] Comment on above: Performed By: #### E LEC #### [facility] ([id number]) [address] [place] [address] ALT [Catalytic activity/Vol] 16 U/L Normal 0-31 [facility] Comment on above: Performed By: #### E LEC #### [facility] ([id number]) [address] [place] [address] Anion gap [Moles/Vol] 8 mmol/L Normal 5-15 [facility] Comment on above: Performed By: #### E LEC #### [facility] ([id number]) [address] [place] [address] AST [Catalytic activity/Vol] 20 U/L Normal 0-41 [facility] Comment on above: Performed By: #### E LEC #### [facility] ([id number]) [address] [place] [address] Bilirubin [Mass/Vol] 0.3 mg/dL Normal 0.3-1.2 [facility] Comment on above: Performed By: #### E LEC #### [facility] ([id number]) [address], [address] [place] [address] Calcium [Mass/Vol] 9.1 mg/dL Normal 8.5-10.5 [facility] Comment on above: Performed By: #### E LEC #### [facility] ([id number]) [address], [address] [place] [address] Chloride [Moles/Vol] 101 mmol/L Normal 98-109 [facility] Comment on above: Performed By: #### E LEC #### [facility] ([id number]) [address], [address] [place] [address] CO2 [Moles/Vol] 29 mmol/L Normal 22-32 [facility] Comment on above: Performed By: #### E LEC #### [facility] ([id number]) [address], [address] [place] [address] Creatinine [Mass/Vol] 1.16 mg/dL High 0.40-1.00 [facility] Comment on above: Result Comment: METH OD TRACEABLE TO IDMS STANDARD Performed By: #### E LEC #### [facility] ([id number]) [address], [address] [place] [address] GFR/1.73 sq M.predicted among non-blacks MDRD (S/P/Bld) [Vol rate/Area] 48 mL/min/{1.73_m2} Low >59 [facility] Comment on above: Result Comment: Reported eGFR is based on the CKD-EPI 2020 equation that does not use a race coefficient. Performed By: #### E LEC #### [facility] ([id number]) [address], [address] [place] [address] Glucose [Mass/Vol] 73 mg/dL Normal 65-99 [facility] Comment on above: Performed By: #### E LEC #### [facility] ([id number]) [address], [address] [place] [address] Potassium [Moles/Vol] 5.0 mmol/L Normal 3.5-5.0 [facility] Comment on above: Performed By: #### E LEC #### [facility] ([id number]) [address], [address] [place] [address] Protein [Mass/Vol] 6.2 g/dL Normal 6.0-8.0 [facility] Comment on above: Performed By: #### E LEC #### [facility] ([id number]) [address], [address] [place] [address] Sodium [Moles/Vol] 138 mmol/L Normal 134-146 [facility] Comment on above: Performed By: #### E LEC #### [facility] ([id number]) [address], [address] [place] [address] Urea nitrogen [Mass/Vol] 44 mg/dL High 5-27 [facility] Comment on above: Performed By: #### E LEC #### [facility] ([id number]) [address], [address] [place] [address] Creatinine (U) [Mass/Vol]on 02-25-2024 URINE CREATININE,RDM 57.71 mg/dL Normal [facility] Comment on above: Performed By: #### E LEC #### [facility] ([id number]) [address], [address] [place] [address] MAGNESIUMon 02-25-2024 Magnesium [Mass/Vol] 1.9 mg/dL Normal 1.8-2.6 [facility] Comment on above: Performed By: #### E LEC #### [facility] ([id number]) [address], [address] [place] [address] Osmolality (U) [Osmolality]o n 02-25-2024 URINE OSMOLALITY 631 mOsm/kg H2 Normal 300-1300 [facility] Comment on above: Performed By: #### E LEC #### [facility] ([id number]) [address], [address] [place] [address] PHOSPHORUSon 02-25-2024 Phosphate [Mass/Vol] 5.9 mg/dL High 2.4-4.9 [facility] Comment on above: Result Comment: SPEC IMEN HEMOLYZED, RESULTS INCREASED SLIGHTLY HEMOLYZED Performed By: #### E LEC #### [facility] ([id number]) [address], [address] [place] [address] Provider Letteron 02-25-2024 Provider Letter (Inserted Image. Sahra ble to display) February 25, 2024 GERA BROUGHT [address] [place] [address] : 1945 Dear Gera Perdue , We [...] Sincerely, [facility] option #3 Normal [facility] URINE SODIUM,RANDOMon 2023 Sodium (U) [Moles/Vol] 119 mmol/L Normal [facility] Comment on above: Performed By: #### E LEC #### [facility] ([id number]) [address] [facility], [address] [place] [address] AFB CULTURE(CONCENTRATED)on 02-24-2024 Mycobacterium sp identified Org specific cx Nom (Unsp spec) SPECIMEN NOTES SPECIMEN 2 AFB SMEAR NO ACID FAST BACILLI (CONCENTRATED SMEAR) CULTURE RESULTS NO ACID FAST BACILLI ISOLATED IN 8 WEEKS Normal [facility] Comment on above: Performed By: #### E LEC #### [facility] ([id number]) [address] [facility], [address] [address] Mycobacterium sp identified Org specific cx Nom (Unsp spec) SPECIMEN NOTES SPECIMEN 1 AFB SMEAR NO ACID FAST BACILLI (CONCENTRATED SMEAR) CULTURE RESULTS NO ACID FAST BACILLI ISOLATED IN 8 WEEKS Normal [facility] Comment on above: Performed By: #### E LEC #### [facility] ([id number]) [address], [address] [place] [address] AND DIFFon 2023 BODY FLUID COMMENT Interpreta tion-- ------ Normal [facility] Comment on above: Result Comment: Refe rence values for this fluid type are undefined, as fluid accumulation is considered abnormal. Performed By: #### E LEC #### [facility] ([id number]) [address] [facility], [address] [place] [address] FLUID CLARITY HAZY Normal [facility] Comment on above: Performed By: #### E LEC #### [facility] ([id number]) [address], [address] [place] [address] FLUID COLOR COLORLESS Normal [facility] Comment on above: Performed By: #### E LEC #### [facility] ([id number]) [address], [address] [place] [address] FLUID LYMPHOCYTE 6 % Normal [facility] Comment on above: Performed By: #### E LEC #### [facility] ([id number]) [address] [facility], [address] [place] [address] FLUID NEUTROPHILS 69 % Normal [facility] Comment on above: Performed By: #### E LEC #### [facility] ([id number]) [address], [address] [place] [address] 34 /uL Normal [facility] Comment on above: Performed By: #### E LEC #### [facility] ([id number]) [address], [address] [place] [address] FLUID SPECIMEN TYPE BRONCHOALVEOLAR LAVAGE Normal [facility] Comment on above: Result Comment: RIGH T LUNG, LOWER LOBE SPECIMEN 2 Performed By: #### E LEC #### [facility] ([id number]) [address], [address] [place] [address] MACROPHAGES 25 % Normal [facility] Comment on above: Performed By: #### E LEC #### [facility] ([id number]) [address], [address] [place] [address] 440 /uL Normal [facility] Comment on above: Performed By: #### E LEC #### [facility] ([id number]) [address], [address] [place] [address] CBC AND AUTO DIFFon 04-29-20 24 Erythrocyte distribution width (RBC) [Ratio] 18.3 % High 11.5-15.0 [facility] Comment on above: Performed By: #### E LEC #### [facility] ([id number]) [address], [address] [place] [address] Hematocrit (Bld) [Volume fraction] 34.7 % Low 35-47 [facility] Comment on above: Performed By: #### E LEC #### [facility] ([id number]) [address], [address] [place] [address] Hemoglobin (Bld) [Mass/Vol] 11.2 g/dL Low 11.7-15.5 [facility] Comment on above: Performed By: #### E LEC #### [facility] ([id number]) [address], [address] [place] [address] Lymphocytes (Bld) [#/Vol] 2.8 10*3/uL Normal 1.0-3.5 [facility] Comment on above: Performed By: #### E LEC #### [facility] ([id number]) [address], [address] [place] [address] Lymphocytes/100 WBC (Bld) 17.0 % Normal [facility] Comment on above: Performed By: #### E LEC #### [facility] ([id number]) [address], [address] [place] [address] MCH (RBC) [Entitic mass] 24.6 pg Low 27-34 [facility] Comment on above: Performed By: #### E LEC #### [facility] ([id number]) [address], [address] [place] [address] MCHC (RBC) [Mass/Vol] 32.1 g/dL Normal 32-36 [facility] Comment on above: Performed By: #### E LEC #### [facility] ([id number]) [address], [address] [place] [address] MCV (RBC) [Entitic vol] 77 fL Low 80-100 [facility] Comment on above: Performed By: #### E LEC #### [facility] ([id number]) [address], [address] [place] [address] Metamyelocytes/100 WBC (Bld) 1.0 % Normal [facility] Comment on above: Performed By: #### E LEC #### [facility] ([id number]) [address], [address] [place] [address] Monocytes (Bld) [#/Vol] 0.7 10*3/uL Normal 0-0.9 [facility] Comment on above: Performed By: #### E LEC #### [facility] ([id number]) [address], [address] [place] [address] Monocytes/100 WBC (Bld) 4.0 % Normal [facility] Comment on above: Performed By: #### E LEC #### [facility] ([id number]) [address], [address] [place] [address] Neutrophils (Bld) [#/Vol] 12.7 10*3/uL High 1.5-6.6 [facility] Comment on above: Performed By: #### E LEC #### [facility] ([id number]) [address], [address] [place] [address] Platelet mean volume (Bld) [Entitic vol] 6.7 fL Low 7-12 [facility] Comment on above: Performed By: #### E LEC #### [facility] ([id number]) [address], [address] [place] [address] Platelets (Bld) [#/Vol] 479 10*3/uL High 150-450 [facility] Comment on above: Performed By: #### E LEC #### [facility] ([id number]) [address], [address] [place] [address] RBC COUNT 4.54 X10E12/L Normal 3.80-5.20 [facility] Comment on above: Performed By: #### E LEC #### [facility] ([id number]) [address], [address] [place] [address] RBC morphology finding Nom (Bld) NORMAL Normal [facility] Comment on above: Performed By: #### E LEC #### [facility] ([id number]) [address], [address] [place] [address] SEG NEUTROPHIL 78.0 % Normal [facility] Comment on above: Performed By: #### E LEC #### [facility] ([id number]) [address], [address] [place] [address] WBC (Bld) [#/Vol] 16.4 10*3/uL High 4.0-11.0 [facility] Comment on above: Performed By: #### E LEC #### [facility] ([id number]) [address], [address] [place] [address] COMPREHENSIVE METABOLIC PANE Harsha 02-24-2024 Albumin [Mass/Vol] 2.8 g/dL Low 3.2-5.3 [facility] Comment on above: Performed By: #### E LEC #### [facility] ([id number]) [address], [address] [place] [address] ALP [Catalytic activity/Vol] 63 U/L Normal 39-130 [facility] Comment on above: Performed By: #### E LEC #### [facility] ([id number]) [address], [address] [place] [address] ALT [Catalytic activity/Vol] 11 U/L Normal 0-31 [facility] Comment on above: Performed By: #### E LEC #### [facility] [facility] ([id number]) [address], [address] [place] [address] Anion gap [Moles/Vol] 6 mmol/L Normal 5-15 [facility] Comment on above: Performed By: #### E LEC #### [facility] ([id number]) [address], [address] [place] [address] AST [Catalytic activity/Vol] 12 U/L Normal 0-41 [facility] Comment on above: Performed By: #### E LEC #### [facility] ([id number]) [address], [address] [place] [address] Bilirubin [Mass/Vol] 0.2 mg/dL Low 0.3-1.2 [facility] Comment on above: Performed By: #### E LEC #### [facility] ([id number]) [address], [address] [place] [address] Calcium [Mass/Vol] 9.1 mg/dL Normal 8.5-10.5 [facility] Comment on above: Performed By: #### E LEC #### [facility] ([id number]) [address], [address] [place] [address] Chloride [Moles/Vol] 101 mmol/L Normal 98-109 [facility] Comment on above: Performed By: #### E LEC #### [facility] ([id number]) [address], [address] [place] [address] CO2 [Moles/Vol] 31 mmol/L Normal 22-32 [facility] Comment on above: Performed By: #### E LEC #### [facility] ([id number]) [address], [address] [place] [address] Creatinine [Mass/Vol] 1.05 mg/dL High 0.40-1.00 [facility] Comment on above: Result Comment: METH OD TRACEABLE TO IDMS STANDARD Performed By: #### E LEC #### [facility] ([id number]) [address], [address] [place] [address] GFR/1.73 sq M.predicted among non-blacks MDRD (S/P/Bld) [Vol rate/Area] 54 mL/min/{1.73_m2} Low >59 [facility] Comment on above: Result Comment: Reported eGFR is based on the CKD-EPI 2020 equation that does not use a race coefficient. Performed By: #### E LEC #### [facility] ([id number]) [address], [address] [place] [address] Glucose [Mass/Vol] 91 mg/dL Normal 65-99 [facility] Comment on above: Performed By: #### E LEC #### [facility] ([id number]) [address] [facility], [address] [place] [address] Potassium [Moles/Vol] 4.5 mmol/L Normal 3.5-5.0 [facility] Comment on above: Performed By: #### E LEC #### [facility] ([id number]) [address] [facility], [address] [place] [address] Protein [Mass/Vol] 6.2 g/dL Normal 6.0-8.0 [facility] Comment on above: Performed By: #### E LEC #### [facility] ([id number]) [address], [address] [place] [address] Sodium [Moles/Vol] 138 mmol/L Normal 134-146 [facility] Comment on above: Performed By: #### E LEC #### [facility] ([id number]) [address], [address] [place] [address] Urea nitrogen [Mass/Vol] 33 mg/dL High 5-27 [facility] Comment on above: Performed By: #### E LEC #### [facility] ([id number]) [address] [place] [address], [address] [place] [address] Cytologyon 02-24-2024 Cytology Normal [facility] Comment on above: Result Comment: [facility] [address] [place] [address] Cytology Consultation Patient Name:LIDA PERDUEB:1945 (Age: 78)Gender:FTaken:4Reported:02/27/2024 16:56Physician(s):Elsa Quinonez MD ([phone])Copy To:Noe Huang [facility] Centeression #:[id number]. Rec. #:[id number]: #[id number] Final Cytologic Diagnosis 1. Right lower lobe, bronchial washing: No malignant cells identified. 2. Right lower lobe, bronchoalveolar lavage: No malignant cells identified. k/02/27/2024 [place] [address], License number: [id number].Electronically Signed Out By Agustin Darling MD Clinical [...] lower lobe, bronchial washing Cell block for Non-clean up helper banquet (M), Level 2 H&E, Non FORGE HEATER ThinPrep 2: Right lower lobe, bronchoalveolar lavage Cell block for Non-clean up helper banquet (M), Level 2 H&E, Non FORGE HEATER ThinPrep Fee Code(s): 1; 22796, 08454 2; 80174, 80156 FUNGAL CULTUREon 02-24-2024 Fungus identified Cx Nom (Unsp spec) SPECIMEN NOTES SPECIMEN 2 FUNGAL SMEAR NO FUNGAL ELEMENTS SEEN ON CONCENTRATED SMEAR CULTURE RESULTS NO FUNGUS ISOLATED AFTER 4 WEEKS Normal [facility] Comment on above: Performed By: #### E LEC #### [facility] ([id number]) [address], [address] [place] [address] Fungus identified Cx Nom (Unsp spec) SPECIMEN NOTES SPECIMEN 1 FUNGAL SMEAR NO FUNGAL ELEMENTS SEEN ON CONCENTRATED SMEAR CULTURE RESULTS NO FUNGUS ISOLATED AFTER 4 WEEKS Normal [facility] Comment on above: Performed By: #### E LEC #### [facility] ([id number]) [address] [facility], [address] [place] [address] LOWER RESPIRATORY CULTUREon 02-24-2024 Bacteria identified Respiratory culture Nom (Sput) SPECIMEN NOTES SPECIMEN 2 GRAM STAIN 1 to 9 WHITE BLOOD CELLS/LPF 1 to 9 SQUAMOUS EPITHELIAL CELLS/LPF 0 CILIATED EPITHELIAL CELLS/LPF NO ORGANISMS SEEN CULTURE RESULTS RARE NORMAL ORAL KIMBERLY Normal [facility] Comment on above: Performed By: #### E LEC #### [facility] ([id number]) [address] [facility], [address] [place] [address] Bacteria identified Respiratory culture Nom (Sput) SPECIMEN NOTES SPECIMEN 1 GRAM STAIN 1 to 9 WHITE BLOOD CELLS/LPF 1 to 9 SQUAMOUS EPITHELIAL CELLS/LPF 0 CILIATED EPITHELIAL CELLS/LPF NO ORGANISMS SEEN CULTURE RESULTS RARE NORMAL ORAL KIMBERLY Normal [facility] Comment on above: Performed By: #### E LEC #### [facility] ([id number]) [address], [address] [place] [address] M. pneumoniae DNA ELIZABETH+probe Ql (Unsp spec)on 02-24-2024 M PNEUMONIAE DNA PCR See Below Normal [facility] Comment on above: Result Comment: NOTE [...] developed and its performance characteristics determined by [facility]. It has not been cleared or approved by the [place] Food and Drug Administration. This test was performed in a CLIA certified laboratory and is intended for clinical purposes. Performed By: [facility] [address] [place] [id number] [employer] Education Teacher: Eduardo Lindsay MD, PhD CLIA Number: [id number] SOURCE: Sputum Performed By: #### E LEC #### [facility] ([id number]) [address] [place] [address], [address] [place] [address] MAGNESIUMon 02-24-2024 Magnesium [Mass/Vol] 2.1 mg/dL Normal 1.8-2.6 [facility] Comment on above: Performed By: #### E LEC #### [facility] ([id number]) [address] [place] [address], [facility] [address] [place] [address] PHOSPHORUSon 02-24-2024 Phosphate [Mass/Vol] 4.6 mg/dL Normal 2.4-4.9 [facility] Comment on above: Performed By: #### E LEC #### [facility] ([id number]) [facility], [address] [place] [address] Procalcitonin IA [Mass/Vol]o n 02-24-2024 PROCALCITONIN <0.05 Normal <0.05 [facility] Comment on above: Result Comment: NOTE <0.50 ng/mL - Low risk of severe sepsis and/or septic shock. <2.00 ng/mL - Recommend retesting within 6-24 hours. >2.00 ng/mL - High risk of sepsis and/or septic shock. Performed By: #### E LEC #### [facility] ([id number]) [facility], [address] [place] [address] CBC AND AUTO DIFFon 02-23-20 24 Band form neutrophils/100 WBC (Bld) 1.0 % Normal [facility] Comment on above: Performed By: #### E LEC #### [facility] ([id number]) [address], [facility] [address] [place] [address] Erythrocyte distribution width (RBC) [Ratio] 18.2 % High 11.5-15.0 [facility] Comment on above: Performed By: #### E LEC #### [facility] ([id number]) [address], [facility] [address] [place] [address] Hematocrit (Bld) [Volume fraction] 35.2 % Normal 35-47 [facility] Comment on above: Performed By: #### E LEC #### [facility] ([id number]) [address], [facility] [address] [place] [address] Hemoglobin (Bld) [Mass/Vol] 11.3 g/dL Low 11.7-15.5 [facility] Comment on above: Performed By: #### E LEC #### [facility] ([id number]) [address], [facility] [address] [place] [address] HYPOCHROMIA 2+ Abnormal NONE [facility] Comment on above: Performed By: #### E LEC #### [facility] ([id number]) [address], [facility] [address] [place] [address] Lymphocytes (Bld) [#/Vol] 2.6 10*3/uL Normal 1.0-3.5 [facility] Comment on above: Performed By: #### E LEC #### [facility] ([id number]) [address] [address] Lymphocytes/100 WBC (Bld) 16.0 % Normal [facility] Comment on above: Performed By: #### E LEC #### [facility] ([id number]) [address], [address] [place] [address] MCH (RBC) [Entitic mass] 24.8 pg Low 27-34 [facility] Comment on above: Performed By: #### E LEC #### [facility] ([id number]) [address], [address] [place] [address] MCHC (RBC) [Mass/Vol] 32.2 g/dL Normal 32-36 [facility] Comment on above: Performed By: #### E LEC #### [facility] ([id number]) [address], [address] [place] [address] MCV (RBC) [Entitic vol] 77 fL Low 80-100 [facility] Comment on above: Performed By: #### E LEC #### [facility] ([id number]) [address], [address] [place] [address] Monocytes (Bld) [#/Vol] 1.0 10*3/uL High 0-0.9 [facility] Comment on above: Performed By: #### E LEC #### [facility] ([id number]) [address], [address] [place] [address] Monocytes/100 WBC (Bld) 6.0 % Normal [facility] Comment on above: Performed By: #### E LEC #### [facility] ([id number]) [address], [address] [place] [address] MYELOCYTE 3.0 % Normal [facility] Comment on above: Performed By: #### E LEC #### [facility] ([id number]) [address], [address] [place] [address] Neutrophils (Bld) [#/Vol] 12.2 10*3/uL High 1.5-6.6 [facility] Comment on above: Performed By: #### E LEC #### [facility] ([id number]) [address], [address] [place] [address] Platelet mean volume (Bld) [Entitic vol] 6.7 fL Low 7-12 [facility] Comment on above: Performed By: #### E LEC #### [facility] ([id number]) [address], [address] [place] [address] Platelets (Bld) [#/Vol] 493 10*3/uL High 150-450 [facility] Comment on above: Performed By: #### E LEC #### [facility] ([id number]) [address], [address] [place] [address] RBC COUNT 4.57 X10E12/L Normal 3.80-5.20 [facility] Comment on above: Performed By: #### E LEC #### [facility] ([id number]) [address], [address] [place] [address] SEG NEUTROPHIL 74.0 % Normal [facility] Comment on above: Performed By: #### E LEC #### [facility] ([id number]) [address], [address] [place] [address] WBC (Bld) [#/Vol] 16.3 10*3/uL High 4.0-11.0 [facility] Comment on above: Performed By: #### E LEC #### [facility] ([id number]) [address], [address] [place] [address] CK [Catalytic activity/Vol]o n 02-23-2024 CPK <10 Low 24-170 [facility] Comment on above: Performed By: #### E LEC #### [facility] ([id number]) [address], [address] [place] [address] COMPREHENSIVE METABOLIC PANE Harsha 02-23-2024 Albumin [Mass/Vol] 2.9 g/dL Low 3.2-5.3 [facility] Comment on above: Performed By: #### E LEC #### [facility] ([id number]) [address], [address] [place] [address] ALP [Catalytic activity/Vol] 69 U/L Normal 39-130 [facility] Comment on above: Performed By: #### E LEC #### [facility] ([id number]) [address], [address] [place] [address] ALT [Catalytic activity/Vol] 7 U/L Normal 0-31 [facility] Comment on above: Performed By: #### E LEC #### [facility] ([id number]) [address], [address] [place] [address] Anion gap [Moles/Vol] 7 mmol/L Normal 5-15 [facility] Comment on above: Performed By: #### E LEC #### [facility] ([id number]) [address], [address] [place] [address] AST [Catalytic activity/Vol] 11 U/L Normal 0-41 [facility] Comment on above: Performed By: #### E LEC #### [facility] ([id number]) [address], [address] [place] [address] Bilirubin [Mass/Vol] 0.2 mg/dL Low 0.3-1.2 [facility] Comment on above: Performed By: #### E LEC #### [facility] ([id number]) [address], [address] [place] [address] Calcium [Mass/Vol] 9.4 mg/dL Normal 8.5-10.5 [facility] Comment on above: Performed By: #### E LEC #### [facility] ([id number]) [address], [address] [place] [address] Chloride [Moles/Vol] 103 mmol/L Normal 98-109 [facility] Comment on above: Performed By: #### E LEC #### [facility] ([id number]) [address], [address] [place] [address] CO2 [Moles/Vol] 31 mmol/L Normal 22-32 [facility] Comment on above: Performed By: #### E LEC #### [facility] ([id number]) [address], [address] [place] [address] Creatinine [Mass/Vol] 0.97 mg/dL Normal 0.40-1.00 [facility] Comment on above: Result Comment: METH OD TRACEABLE TO IDMS STANDARD Performed By: #### E LEC #### [facility] ([id number]) [address] [facility], [address] [place] [address] GFR/1.73 sq M.predicted among non-blacks MDRD (S/P/Bld) [Vol rate/Area] 60 mL/min/{1.73_m2} Normal >59 [facility] Comment on above: Result Comment: Reported eGFR is based on the CKD-EPI 2020 equation that does not use a race coefficient. Performed By: #### E LEC #### [facility] ([id number]) [address], [address] [place] [address] Glucose [Mass/Vol] 86 mg/dL Normal 65-99 [facility] Comment on above: Performed By: #### E LEC #### [facility] ([id number]) [address], [address] [place] [address] Potassium [Moles/Vol] 4.6 mmol/L Normal 3.5-5.0 [facility] Comment on above: Performed By: #### E LEC #### [facility] ([id number]) [address], [address] [place] [address] Protein [Mass/Vol] 6.6 g/dL Normal 6.0-8.0 [facility] Comment on above: Performed By: #### E LEC #### [facility] ([id number]) [address], [address] [place] [address] Sodium [Moles/Vol] 141 mmol/L Normal 134-146 [facility] Comment on above: Performed By: #### E LEC #### [facility] ([id number]) [address] [place] [address] Urea nitrogen [Mass/Vol] 31 mg/dL High 5-27 [facility] Comment on above: Performed By: #### E LEC #### [facility] ([id number]) [address], [address] [place] [address] FL SWALLOW MOTILITY FUNCTION on 02-23-2024 FL [...] León Parikh on 02/23/2024 8:44 AM Normal [facility] MAGNESIUMon 02-23-2024 Magnesium [Mass/Vol] 1.7 mg/dL Low 1.8-2.6 [facility] Comment on above: Performed By: #### E LEC #### [facility] ([id number]) [address], [address] [place] [address] PHOSPHORUSon 02-23-2024 Phosphate [Mass/Vol] 3.8 mg/dL Normal 2.4-4.9 [facility] Comment on above: Performed By: #### E LEC #### [facility] ([id number]) [address], [address] [place] [address] CBC AND AUTO DIFFon 02-22-20 Erythrocyte distribution width (RBC) [Ratio] 18.6 % High 11.5-15.0 [facility] Comment on above: Performed By: #### E LEC #### [facility] ([id number]) [address], [address] [place] [address] Hematocrit (Bld) [Volume fraction] 34.2 % Low 35-47 [facility] Comment on above: Performed By: #### E LEC #### [facility] ([id number]) [address], [address] [place] [address] Hemoglobin (Bld) [Mass/Vol] 11.0 g/dL Low 11.7-15.5 [facility] Comment on above: Performed By: #### E LEC #### [facility] ([id number]) [address], [address] [place] [address] HYPOCHROMIA 2+ Abnormal NONE [facility] Comment on above: Performed By: #### E LEC #### [facility] ([id number]) [address], [address] [place] [address] Lymphocytes (Bld) [#/Vol] 2.6 10*3/uL Normal 1.0-3.5 [facility] Comment on above: Performed By: #### E LEC #### [facility] ([id number]) [address], [address] [place] [address] Lymphocytes/100 WBC (Bld) 17.0 % Normal [facility] Comment on above: Performed By: #### E LEC #### [facility] ([id number]) [address], [address] [place] [address] MCH (RBC) [Entitic mass] 24.5 pg Low 27-34 [facility] Comment on above: Performed By: #### E LEC #### [facility] ([id number]) [address], [address] [place] [address] MCHC (RBC) [Mass/Vol] 32.0 g/dL Normal 32-36 [facility] Comment on above: Performed By: #### E LEC #### [facility] ([id number]) [address], [address] [place] [address] MCV (RBC) [Entitic vol] 76 fL Low 80-100 [facility] Comment on above: Performed By: #### E LEC #### [facility] ([id number]) [address], [address] [place] [address] Monocytes (Bld) [#/Vol] 0.6 10*3/uL Normal 0-0.9 [facility] Comment on above: Performed By: #### E LEC #### [facility] ([id number]) [address], [address] [place] [address] Monocytes/100 WBC (Bld) 4.0 % Normal [facility] Comment on above: Performed By: #### E LEC #### [facility] ([id number]) [address], [address] [place] [address] Neutrophils (Bld) [#/Vol] 12.0 10*3/uL High 1.5-6.6 [facility] Comment on above: Performed By: #### E LEC #### [facility] ([id number]) [address], [address] [place] [address] Platelet mean volume (Bld) [Entitic vol] 6.6 fL Low 7-12 [facility] Comment on above: Performed By: #### E LEC #### [facility] ([id number]) [address], [address] [place] [address] Platelets (Bld) [#/Vol] 444 10*3/uL Normal 150-450 [facility] Comment on above: Performed By: #### E LEC #### [facility] ([id number]) [address], [address] [place] [address] RBC COUNT 4.47 X10E12/L Normal 3.80-5.20 [facility] Comment on above: Performed By: #### E LEC #### [facility] ([id number]) [address], [address] [place] [address] SEG NEUTROPHIL 79.0 % Normal [facility] Comment on above: Performed By: #### E LEC #### [facility] ([id number]) [address], [address] [place] [address] WBC (Bld) [#/Vol] 15.2 10*3/uL High 4.0-11.0 [facility] Comment on above: Performed By: #### E LEC #### [facility] ([id number]) [address], [address] [place] [address] COMPREHENSIVE METABOLIC PANE Harsha 02-22-2024 Albumin [Mass/Vol] 2.9 g/dL Low 3.2-5.3 [facility] Comment on above: Performed By: #### E LEC #### [facility] ([id number]) [address], [address] [place] [address] ALP [Catalytic activity/Vol] 80 U/L Normal 39-130 [facility] Comment on above: Performed By: #### E LEC #### [facility] ([id number]) [address], [address] [place] [address] ALT [Catalytic activity/Vol] 9 U/L Normal 0-31 [facility] Comment on above: Performed By: #### E LEC #### [facility] ([id number]) [address] [place] [address] Anion gap [Moles/Vol] 8 mmol/L Normal 5-15 [facility] Comment on above: Performed By: #### E LEC #### [facility] ([id number]) [address], [address] [place] [address] AST [Catalytic activity/Vol] 12 U/L Normal 0-41 [facility] Comment on above: Performed By: #### E LEC #### [facility] ([id number]) [address], [address] [place] [address] Bilirubin [Mass/Vol] 0.2 mg/dL Low 0.3-1.2 [facility] Comment on above: Performed By: #### E LEC #### [facility] ([id number]) [address], [address] [place] [address] Calcium [Mass/Vol] 9.2 mg/dL Normal 8.5-10.5 [facility] Comment on above: Performed By: #### E LEC #### [facility] ([id number]) [address], [address] [place] [address] Chloride [Moles/Vol] 103 mmol/L Normal 98-109 [facility] Comment on above: Performed By: #### E LEC #### [facility] ([id number]) [address], [address] [place] [address] CO2 [Moles/Vol] 32 mmol/L Normal 22-32 [facility] Comment on above: Performed By: #### E LEC #### [facility] ([id number]) [address], [address] [place] [address] Creatinine [Mass/Vol] 0.94 mg/dL Normal 0.40-1.00 [facility] Comment on above: Result Comment: METH OD TRACEABLE TO IDMS STANDARD Performed By: #### E LEC #### [facility] ([id number]) [address], [address] [place] [address] GFR/1.73 sq M.predicted among non-blacks MDRD (S/P/Bld) [Vol rate/Area] 62 mL/min/{1.73_m2} Normal >59 [facility] Comment on above: Result Comment: Reported eGFR is based on the CKD-EPI 2020 equation that does not use a race coefficient. Performed By: #### E LEC #### [facility] ([id number]) [address], [address] [place] [address] Glucose [Mass/Vol] 128 mg/dL High 65-99 [facility] Comment on above: Performed By: #### E LEC #### [facility] ([id number]) [address], [address] [place] [address] Potassium [Moles/Vol] 4.2 mmol/L Normal 3.5-5.0 [facility] Comment on above: Performed By: #### E LEC #### [facility] ([id number]) [address], [address] [place] [address] Protein [Mass/Vol] 6.9 g/dL Normal 6.0-8.0 [facility] Comment on above: Performed By: #### E LEC #### [facility] ([id number]) [address], [address] [place] [address] Sodium [Moles/Vol] 143 mmol/L Normal 134-146 [facility] Comment on above: Performed By: #### E LEC #### [facility] ([id number]) [address], [address] [place] [address] Urea nitrogen [Mass/Vol] 29 mg/dL High 5-27 [facility] Comment on above: Performed By: #### E LEC #### [facility] ([id number]) [address], [address] [place] [address] MAGNESIUMon 02-22-2024 Magnesium [Mass/Vol] 2.0 mg/dL Normal 1.8-2.6 [facility] Comment on above: Performed By: #### E LEC #### [facility] ([id number]) [address] [facility] [facility] [address] [place] [address] PHOSPHORUSon 02-22-2024 Phosphate [Mass/Vol] 3.3 mg/dL Normal 2.4-4.9 [facility] Comment on above: Performed By: #### E LEC #### [facility] ([id number]) [address] [facility] [facility] [place] [address] C DIFFICILE BY PCRon 024 C. difficile toxin genes ELIZABETH+probe Ql (Stl) TOXIGENIC C DIFF Negative (qualifier value) 027 NAP1 Negative (qualifier value) Normal PRNEG [facility] Comment on above: Performed By: #### E LEC #### [facility] ([id number]) [address], [address] [place] [address] CBC AND AUTO DIFFon 02-21-20 24 ABSOLUTE BASOPHIL 0.0 X10E9/L Normal 0.0-0.2 [facility] Comment on above: Performed By: #### E LEC #### [facility] ([id number]) [address], [address] [place] [address] ABSOLUTE NEUTROPHIL 10.9 X10E9/L High 1.5-6.6 [facility] Comment on above: Performed By: #### E LEC #### [facility] ([id number]) [address], [address] [place] [address] Basophils/100 WBC (Bld) 0.2 % Normal [facility] Comment on above: Performed By: #### E LEC #### [facility] ([id number]) [address], [address] [place] [address] Eosinophils (Bld) [#/Vol] 0.0 10*3/uL Normal 0.0-0.4 [facility] Comment on above: Performed By: #### E LEC #### [facility] ([id number]) [address], [address] [facility] [place] [address] Eosinophils/100 WBC (Bld) 0.0 % Normal [facility] Comment on above: Performed By: #### E LEC #### [facility] ([id number]) [address], [address] [place] [address] Erythrocyte distribution width (RBC) [Ratio] 18.0 % High 11.5-15.0 [facility] Comment on above: Performed By: #### E LEC #### [facility] ([id number]) [address], [address] [place] [address] Hematocrit (Bld) [Volume fraction] 32.3 % Low 35-47 [facility] Comment on above: Performed By: #### E LEC #### [facility] ([id number]) [address] [place] [address] Hemoglobin (Bld) [Mass/Vol] 10.5 g/dL Low 11.7-15.5 [facility] Comment on above: Performed By: #### E LEC #### [facility] ([id number]) [address], [address] [place] [address] Lymphocytes (Bld) [#/Vol] 2.1 10*3/uL Normal 1.0-3.5 [facility] Comment on above: Performed By: #### E LEC #### [facility] ([id number]) [address], [address] [place] [address] Lymphocytes/100 WBC (Bld) 14.7 % Normal [facility] Comment on above: Performed By: #### E LEC #### [facility] ([id number]) [address], [address] [place] [address] MCH (RBC) [Entitic mass] 24.6 pg Low 27-34 [facility] Comment on above: Performed By: #### E LEC #### [facility] ([id number]) [address], [address] [place] [address] MCHC (RBC) [Mass/Vol] 32.5 g/dL Normal 32-36 [facility] Comment on above: Performed By: #### E LEC #### [facility] ([id number]) [address], [address] [place] [address] MCV (RBC) [Entitic vol] 76 fL Low 80-100 [facility] Comment on above: Performed By: #### E LEC #### [facility] ([id number]) [address], [address] [place] [address] Monocytes (Bld) [#/Vol] 1.3 10*3/uL High 0-0.9 [facility] Comment on above: Performed By: #### E LEC #### [facility] ([id number]) [address], [address] [place] [address] Monocytes/100 WBC (Bld) 9.2 % Normal [facility] Comment on above: Performed By: #### E LEC #### [facility] ([id number]) [address], [address] [place] [address] Neutrophils/100 WBC (Bld) 75.9 % Normal [facility] Comment on above: Performed By: #### E LEC #### [facility] ([id number]) [address], [address] [place] [address] Platelet mean volume (Bld) [Entitic vol] 6.7 fL Low 7-12 [facility] Comment on above: Performed By: #### E LEC #### [facility] ([id number]) [address], [address] [place] [address] Platelets (Bld) [#/Vol] 448 10*3/uL Normal 150-450 [facility] Comment on above: Performed By: #### E LEC #### [facility] ([id number]) [address], [address] [place] [address] RBC COUNT 4.27 X10E12/L Normal 3.80-5.20 [facility] Comment on above: Performed By: #### E LEC #### [facility] ([id number]) [address], [address] [place] [address] WBC (Bld) [#/Vol] 14.4 10*3/uL High 4.0-11.0 [facility] Comment on above: Performed By: #### E LEC #### [facility] ([id number]) [address], [address] [place] [address] COMPREHENSIVE METABOLIC PANE Harsha 02-21-2024 Albumin [Mass/Vol] 2.9 g/dL Low 3.2-5.3 [facility] Comment on above: Performed By: #### E LEC #### [facility] ([id number]) [address], [address] [place] [address] ALP [Catalytic activity/Vol] 81 U/L Normal 39-130 [facility] Comment on above: Performed By: #### E LEC #### [facility] ([id number]) [address], [address] [place] [address] ALT [Catalytic activity/Vol] 4 U/L Normal 0-31 [facility] Comment on above: Performed By: #### E LEC #### [facility] ([id number]) [address], [address] [place] [address] Anion gap [Moles/Vol] 7 mmol/L Normal 5-15 [facility] Comment on above: Performed By: #### E LEC #### [facility] ([id number]) [address], [address] [place] [address] AST [Catalytic activity/Vol] 9 U/L Normal 0-41 [facility] Comment on above: Performed By: #### E LEC #### [facility] ([id number]) [address], [address] [place] [address] Bilirubin [Mass/Vol] 0.2 mg/dL Low 0.3-1.2 [facility] Comment on above: Performed By: #### E LEC #### [facility] ([id number]) [address] [place] [address] Calcium [Mass/Vol] 8.9 mg/dL Normal 8.5-10.5 [facility] Comment on above: Performed By: #### E LEC #### [facility] ([id number]) [address], [address] [place] [address] Chloride [Moles/Vol] 102 mmol/L Normal 98-109 [facility] Comment on above: Performed By: #### E LEC #### [facility] ([id number]) [address], [address] [place] [address] CO2 [Moles/Vol] 34 mmol/L High 22-32 [facility] Comment on above: Performed By: #### E LEC #### [facility] ([id number]) [address], [address] [place] [address] Creatinine [Mass/Vol] 1.09 mg/dL High 0.40-1.00 [facility] Comment on above: Result Comment: METH OD TRACEABLE TO IDMS STANDARD Performed By: #### E LEC #### [facility] ([id number]) [address], [address] [place] [address] GFR/1.73 sq M.predicted among non-blacks MDRD (S/P/Bld) [Vol rate/Area] 52 mL/min/{1.73_m2} Low >59 [facility] Comment on above: Result Comment: Reported eGFR is based on the CKD-EPI 2020 equation that does not use a race coefficient. Performed By: #### E LEC #### [facility] ([id number]) [address] [address] [place] [address] Glucose [Mass/Vol] 150 mg/dL High 65-99 [facility] Comment on above: Performed By: #### E LEC #### [facility] ([id number]) [address] [address] [place] [address] Potassium [Moles/Vol] 4.0 mmol/L Normal 3.5-5.0 [facility] Comment on above: Performed By: #### E LEC #### [facility] ([id number]) [address] [address] [place] [address] Protein [Mass/Vol] 6.8 g/dL Normal 6.0-8.0 [facility] Comment on above: Performed By: #### E LEC #### [facility] ([id number]) [address], [address] [place] [address] Sodium [Moles/Vol] 143 mmol/L Normal 134-146 [facility] Comment on above: Performed By: #### E LEC #### [facility] ([id number]) [address] [address] [place] [address] Urea nitrogen [Mass/Vol] 25 mg/dL Normal 5-27 [facility] Comment on above: Performed By: #### E LEC #### [facility] ([id number]) [address] [address] [place] [address] GI PANELon 02-21-2024 Gastrointestinal pathogens DNA and [...] SAPOVIRUS Not detected (qualifier value) Normal NDET [facility] Comment on above: Performed By: #### E LEC #### [facility] ([id number]) [address] [address] MAGNESIUMon 02-21-2024 Magnesium [Mass/Vol] 2.4 mg/dL Normal 1.8-2.6 [facility] Comment on above: Performed By: #### E LEC #### [facility] ([id number]) [address] [facility] [facility] [address] [place] [address] PHOSPHORUSon 02-21-2024 Phosphate [Mass/Vol] 3.7 mg/dL Normal 2.4-4.9 [facility] Comment on above: Performed By: #### E LEC #### [facility] ([id number]) [address] [address] CBC AND AUTO DIFFon 02-20-20 ABSOLUTE BASOPHIL 0.0 X10E9/L Normal 0.0-0.2 [facility] Comment on above: Performed By: #### E LEC #### [facility] ([id number]) [address] [place] [address] ABSOLUTE NEUTROPHIL 10.4 X10E9/L High 1.5-6.6 [facility] Comment on above: Performed By: #### E LEC #### [facility] ([id number]) [address] [place] [address] Basophils/100 WBC (Bld) 0.1 % Normal [facility] Comment on above: Performed By: #### E LEC #### [facility] ([id number]) [address] [place] [address] Eosinophils (Bld) [#/Vol] 0.0 10*3/uL Normal 0.0-0.4 [facility] Comment on above: Performed By: #### E LEC #### [facility] ([id number]) [address] [place] [address] Eosinophils/100 WBC (Bld) 0.0 % Normal [facility] Comment on above: Performed By: #### E LEC #### [facility] ([id number]) [address] [place] [address] Erythrocyte distribution width (RBC) [Ratio] 18.1 % High 11.5-15.0 [facility] Comment on above: Performed By: #### E LEC #### [facility] ([id number]) [address] [place] [address] Hematocrit (Bld) [Volume fraction] 33.6 % Low 35-47 [facility] Comment on above: Performed By: #### E LEC #### [facility] ([id number]) [address] [place] [address] Hemoglobin (Bld) [Mass/Vol] 11.2 g/dL Low 11.7-15.5 [facility] Comment on above: Performed By: #### E LEC #### [facility] ([id number]) [address] [place] [address] Lymphocytes (Bld) [#/Vol] 1.3 10*3/uL Normal 1.0-3.5 [facility] Comment on above: Performed By: #### E LEC #### [facility] ([id number]) [address] [place] [address] Lymphocytes/100 WBC (Bld) 10.6 % Normal [facility] Comment on above: Performed By: #### E LEC #### [facility] ([id number]) [address] [place] [address] MCH (RBC) [Entitic mass] 25.1 pg Low 27-34 [facility] Comment on above: Performed By: #### E LEC #### [facility] ([id number]) [address] [place] [address] MCHC (RBC) [Mass/Vol] 33.3 g/dL Normal 32-36 [facility] Comment on above: Performed By: #### E LEC #### [facility] ([id number]) [address] [place] [address] MCV (RBC) [Entitic vol] 76 fL Low 80-100 [facility] Comment on above: Performed By: #### E LEC #### [facility] ([id number]) [address] [place] [address] Monocytes (Bld) [#/Vol] 0.5 10*3/uL Normal 0-0.9 [facility] Comment on above: Performed By: #### E LEC #### [facility] ([id number]) [address] [place] [address] Monocytes/100 WBC (Bld) 3.7 % Normal [facility] Comment on above: Performed By: #### E LEC #### [facility] ([id number]) [address] [place] [address] Neutrophils/100 WBC (Bld) 85.6 % Normal [facility] Comment on above: Performed By: #### E LEC #### [facility] ([id number]) [address] [place] [address] Platelet mean volume (Bld) [Entitic vol] 6.9 fL Low 7-12 [facility] Comment on above: Performed By: #### E LEC #### [facility] ([id number]) [address] [place] [address] Platelets (Bld) [#/Vol] 425 10*3/uL Normal 150-450 [facility] Comment on above: Performed By: #### E LEC #### [facility] ([id number]) [address] [place] [address] RBC COUNT 4.45 X10E12/L Normal 3.80-5.20 [facility] Comment on above: Performed By: #### E LEC #### [facility] ([id number]) [address] [place] [address] WBC (Bld) [#/Vol] 12.1 10*3/uL High 4.0-11.0 [facility] Comment on above: Performed By: #### E LEC #### [facility] ([id number]) [address] [place] [address] COMPREHENSIVE METABOLIC PANE Harsha 02-20-2024 Albumin [Mass/Vol] 3.0 g/dL Low 3.2-5.3 [facility] Comment on above: Performed By: #### E LEC #### [facility] ([id number]) [address] [place] [address] ALP [Catalytic activity/Vol] 81 U/L Normal 39-130 [facility] Comment on above: Performed By: #### E LEC #### [facility] ([id number]) [address] [place] [address] ALT [Catalytic activity/Vol] U/L Normal 0-31 [facility] Comment on above: Performed By: #### E LEC #### [facility] ([id number]) [address] [place] [address] Anion gap [Moles/Vol] 10 mmol/L Normal 5-15 [facility] Comment on above: Performed By: #### E LEC #### [facility] ([id number]) [address] [place] [address] AST [Catalytic activity/Vol] 9 U/L Normal 0-41 [facility] Comment on above: Performed By: #### E LEC #### [facility] ([id number]) [address] [place] [address] Bilirubin [Mass/Vol] 0.2 mg/dL Low 0.3-1.2 [facility] Comment on above: Performed By: #### E LEC #### [facility] ([id number]) [address] [place] [address] Calcium [Mass/Vol] 9.1 mg/dL Normal 8.5-10.5 [facility] Comment on above: Performed By: #### E LEC #### [facility] ([id number]) [address], [address] [place] [address] Chloride [Moles/Vol] 97 mmol/L Low 98-109 [facility] Comment on above: Performed By: #### E LEC #### [facility] ([id number]) [address], [address] [place] [address] CO2 [Moles/Vol] 33 mmol/L High 22-32 [facility] [place] Comment on above: Performed By: #### E LEC #### [facility] ([id number]) [address], [address] [place] [address] Creatinine [Mass/Vol] 1.16 mg/dL High 0.40-1.00 [facility] Comment on above: Result Comment: METH OD TRACEABLE TO IDMS STANDARD Performed By: #### E LEC #### [facility] ([id number]) [address], [address] [place] [address] GFR/1.73 sq M.predicted among non-blacks MDRD (S/P/Bld) [Vol rate/Area] 48 mL/min/{1.73_m2} Low >59 [facility] Comment on above: Result Comment: Reported eGFR is based on the CKD-EPI 2020 equation that does not use a race coefficient. Performed By: #### E LEC #### [facility] [facility] ([id number]) [address], [address] [place] [address] Glucose [Mass/Vol] 171 mg/dL High 65-99 [facility] Comment on above: Performed By: #### E LEC #### [facility] ([id number]) [address], [address] [place] [address] Potassium [Moles/Vol] 3.6 mmol/L Normal 3.5-5.0 [facility] Comment on above: Performed By: #### E LEC #### [facility] ([id number]) [address], [address] [place] [address] Protein [Mass/Vol] 7.1 g/dL Normal 6.0-8.0 [facility] Comment on above: Performed By: #### E LEC #### [facility] ([id number]) [address], [address] [place] [address] Sodium [Moles/Vol] 140 mmol/L Normal 134-146 [facility] Comment on above: Performed By: #### E LEC #### [facility] ([id number]) [address], [address] [place] [address] Urea nitrogen [Mass/Vol] 16 mg/dL Normal 5-27 [facility] Comment on above: Performed By: #### E LEC #### [facility] ([id number]) [address], [address] [place] [address] MAGNESIUMon 02-20-2024 Magnesium [Mass/Vol] 2.8 mg/dL High 1.8-2.6 [facility] Comment on above: Performed By: #### E LEC #### [facility] ([id number]) [address], [address] [place] [address] Magnesium [Mass/Vol] 1.5 mg/dL Low 1.8-2.6 [facility] Comment on above: Performed By: #### E LEC #### [facility] ([id number]) [address], [address] [place] [address] PHOSPHORUSon 02-20-2024 Phosphate [Mass/Vol] 3.6 mg/dL Normal 2.4-4.9 [facility] Comment on above: Performed By: #### E LEC #### [facility] ([id number]) [address], [address] [place] [address] POTASSIUMon 02-20-2024 Potassium [Moles/Vol] 4.1 mmol/L Normal 3.5-5.0 [facility] Comment on above: Performed By: #### E LEC #### [facility] ([id number]) [address], [address] [place] [address] BASIC METABOLIC PANLon 02-18 Anion gap [Moles/Vol] 10 mmol/L Normal 5-15 [facility] Comment on above: Performed By: #### C BC, BMP, 36854-4, 2777-1 #### [facility] ([id number]) [address], [address] [place] [address] Calcium [Mass/Vol] 9.5 mg/dL Normal 8.5-10.5 [facility] Comment on above: Performed By: #### SANTOSH SALEEM, , 2776-10 #### [facility] ([id number]) [address], [address] [place] [address] Chloride [Moles/Vol] 96 mmol/L Low 98-109 [facility] Comment on above: Performed By: #### SANTOSH SALEEM, , 2776-10 #### [facility] ([id number]) [address], [address] [place] [address] CO2 [Moles/Vol] 32 mmol/L Normal 22-32 [facility] Comment on above: Performed By: #### SANTOSH SALEEM, , 2776-10 #### [facility] ([id number]) [address], [address] [place] [address] Creatinine [Mass/Vol] 1.10 mg/dL High 0.40-1.00 [facility] Comment on above: Result Comment: METH OD TRACEABLE TO IDMS STANDARD Performed By: #### Timmy MILLIGAN, SANTOSH, , 2776-10 #### [facility] ([id number]) [address], [address] [place] [address] GFR/1.73 sq M.predicted among non-blacks MDRD (S/P/Bld) [Vol rate/Area] 51 mL/min/{1.73_m2} Low >59 [facility] Comment on above: Result Comment: Reported eGFR is based on the CKD-EPI 2020 equation that does not use a race coefficient. Performed By: #### Timmy MILLIGAN, BMP, , 2776-10 #### [facility] ([id number]) [address], [address] [place] [address] Glucose [Mass/Vol] 131 mg/dL High 65-99 [facility] Comment on above: Performed By: #### C SANTOSH MILLIGAN, , 2776-10 #### [facility] ([id number]) [address], [address] [place] [address] Potassium [Moles/Vol] 3.9 mmol/L Normal 3.5-5.0 [facility] Comment on above: Performed By: #### C SANTOSH MILLIGAN, , 2776-10 #### [facility] ([id number]) [address], [address] [place] [address] Sodium [Moles/Vol] 138 mmol/L Normal 134-146 [facility] Comment on above: Performed By: #### SANTOSH SALEEM, , 2776-10 #### [facility] ([id number]) [address], [address] [place] [address] Urea nitrogen [Mass/Vol] 11 mg/dL Normal 5-27 [facility] Comment on above: Performed By: #### SANTOSH SALEEM, , 2776-10 #### [facility] ([id number]) [address], [address] [place] [address] BLOOD CULTUREon 02-19-2024 Bacteria identified Aer cx Nom (Bld) SPECIMEN NOTES ONLY ANAEROBIC BOTTLE SENT CULTURE RESULTS NO GROWTH 5 DAYS Normal [facility] Comment on above: Performed By: #### E LEC #### [facility] ([id number]) [address], [address] [place] [address] Bacteria identified Aer cx Nom (Bld) CULTURE RESULTS NO GROWTH 5 DAYS Normal [facility] CBC AND AUTO DIFFon 02-19-20 24 ABSOLUTE BASOPHIL 0.0 X10E9/L Normal 0.0-0.2 [facility] Comment on above: Performed By: #### C SANTOSH MILLIGAN, , 2776-10 #### [facility] ([id number]) [address], [address] [place] [address] ABSOLUTE NEUTROPHIL 10.1 X10E9/L High 1.5-6.6 [facility] Comment on above: Performed By: #### Timmy MILLIGAN, [facility], , 2776-10 #### [facility] ([id number]) [address], [address] [place] [address] Basophils/100 WBC (Bld) 0.3 % Normal [facility] Comment on above: Performed By: #### Timmy MILLIGAN [facility], , 2776-10 #### [facility] ([id number]) [address], [address] [place] [address] Eosinophils (Bld) [#/Vol] 0.2 10*3/uL Normal 0.0-0.4 [facility] Comment on above: Performed By: #### SANTOSH SALEEM, , 2776-10 #### [facility] ([id number]) [address], [address] [place] [address] Eosinophils/100 WBC (Bld) 1.3 % Normal [facility] Comment on above: Performed By: #### SANTOSH SALEEM, , 2776-10 #### [facility] ([id number]) [address], [address] [place] [address] Erythrocyte distribution width (RBC) [Ratio] 18.1 % High 11.5-15.0 [facility] Comment on above: Performed By: #### Timmy MILLIGAN, SANTOSH, , 2776-10 #### [facility] ([id number]) [address], [address] [place] [address] Hematocrit (Bld) [Volume fraction] 37.8 % Normal 35-47 [facility] Comment on above: Performed By: #### SANTOSH SALEEM, , 2776-10 #### [facility] ([id number]) [address], [address] [place] [address] Hemoglobin (Bld) [Mass/Vol] 12.1 g/dL Normal 11.7-15.5 [facility] Comment on above: Performed By: #### Timmy MILLIGAN, [facility], , 2776-10 #### [facility] ([id number]) [address], [address] [place] [address] Lymphocytes (Bld) [#/Vol] 2.5 10*3/uL Normal 1.0-3.5 [facility] Comment on above: Performed By: #### Timmy MILLIGAN, [facility], , 2776-10 #### [facility] ([id number]) [address], [address] [place] [address] Lymphocytes/100 WBC (Bld) 17.9 % Normal [facility] Comment on above: Performed By: #### Timmy MILLIGAN, [facility], , 2776-10 #### [facility] ([id number]) [address], [address] [place] [address] MCH (RBC) [Entitic mass] 24.4 pg Low 27-34 [facility] Comment on above: Performed By: #### SANTOSH SALEEM, , 2776-10 #### [facility] ([id number]) [address], [address] [place] [address] MCHC (RBC) [Mass/Vol] 32.0 g/dL Normal 32-36 [facility] Comment on above: Performed By: #### Timmy MILLIGAN, SANTOSH, , 2776-10 #### [facility] ([id number]) [address], [address] [place] [address] MCV (RBC) [Entitic vol] 76 fL Low 80-100 [facility] Comment on above: Performed By: #### C SRINI, BMP, , 2776-10 #### [facility] ([id number]) [address], [address] [place] [address] Monocytes (Bld) [#/Vol] 1.4 10*3/uL High 0-0.9 [facility] Comment on above: Performed By: #### Timmy MILLIGAN, BMP, , 2776-10 #### [facility] ([id number]) [address], [address] [place] [address] Monocytes/100 WBC (Bld) 9.9 % Normal [facility] Comment on above: Performed By: #### Timmy MILLIGAN, BMP, , 2776-10 #### [facility] ([id number]) [address], [address] [place] [address] Neutrophils/100 WBC (Bld) 70.6 % Normal [facility] Comment on above: Performed By: #### Timmy MILLIGAN, SANTOSH, , 2776-10 #### [facility] ([id number]) [address], [address] [place] [address] Platelet mean volume (Bld) [Entitic vol] 6.9 fL Low 7-12 [facility] Comment on above: Performed By: #### Timmy MILLIGAN, BMP, , 2776-10 #### [facility] ([id number]) [address], [address] [place] [address] Platelets (Bld) [#/Vol] 485 10*3/uL High 150-450 [facility] Comment on above: Performed By: #### Timmy MILLIGAN, BMP, , 2776-10 #### [facility] ([id number]) [address], [address] [place] [address] RBC COUNT 4.95 X10E12/L Normal 3.80-5.20 [facility] Comment on above: Performed By: #### C BC, BMP, 26086-1, 2777-1 #### [facility] ([id number]) [address], [address] [place] [address] WBC (Bld) [#/Vol] 14.2 10*3/uL High 4.0-11.0 [facility] Comment on above: Performed By: #### C BC, BMP, 54911-0, 2777-1 #### [facility] ([id number]) [address] [place] [address] CT ABDOMEN AND PELVIS W CONT on [...] Lehman MD on 02/19/2024 4:54 PM Normal [facility] LEGIONELLA URINE AGon 2023 L. pneumophila Ag IA Ql (U) LEGIONELLA URINE AG Negative (qualifier value) NEGATIVE FOR L.PNEUMOPHILA SEROGROUP 1 ANTIGEN Normal [facility] Comment on above: Performed By: #### E LEC #### [facility] ([id number]) [address] [facility] [facility] [place] [address] Lactate (P timmy) [Moles/Vol]o n 02-19-2024 LACTATE W/REFLEX 1.7 mmol/L Normal 0.4-2.0 [facility] Comment on above: Result Comment: Result did not trigger repeat Lactate, re-order if needed. Performed By: #### C BC, [facility], [address]-8, 2777-1 #### [facility] ([id number]) [address] [facility] [facility], [address] [place] [address] MRSA PCR NASALon 02-19-2024 MRSA DNA ELIZABETH+probe Ql (Unsp spec) Negative Normal NEG [facility] Comment on above: Performed By: #### E LEC #### [facility] ([id number]) [address] [facility] [facility], [address] [place] [address] Natriuretic peptide B [Mass/ Vol]on 02-19-2024 Natriuretic peptide B (Bld) [Mass/Vol] 38 pg/mL Normal <100.0 [facility] Comment on above: Performed By: #### C SRINI, [facility], , 277-1 #### [facility] ([id number]) [address], [address] [place] [address] Nuclear Ab IA Ql (S)on 02-18 BRANDON Screen w/reflex Negative Normal NEG [facility] Comment on above: Result Comment: Testing performed using multiplex flow immunoassay. Eleven different antigens associated with systemic autoimmune diseases (dsDNA,Sm,Sm/CHILD AND FAMILY COUNSELOR,CHILD AND FAMILY COUNSELOR,Chromatin, SSA,SSB,Dacia-1,Scl70,Ribo P,Centromere B) are included in this screening test. Performed By: #### E LEC #### [facility] ([id number]) [address] [facility] [facility], [address] [place] [address] PROTIME AND INRon 02-19-2024 INR Coag (PPP) [Relative time] 1.1 {INR} Normal 0.8-1.1 [facility] Comment on above: Performed By: #### C SRINI [facility], , 1 #### [facility] ([id number]) [address] [facility] [facility], [address] [place] [address] PT Coag (PPP) [Time] 13.1 s Normal 9.8-13.2 [facility] Comment on above: Performed By: #### C SRINI [facility], , 2777-1 #### [facility] ([id number]) [address], [address] [place] [address] Procalcitonin IA [Mass/Vol]o n 02-19-2024 PROCALCITONIN 0.10 ng/mL High <0.05 [facility] Comment on above: Result Comment: NOTE <0.50 ng/mL - Low risk of severe sepsis and/or septic shock. <2.00 ng/mL - Recommend retesting within 6-24 hours. >2.00 ng/mL - High risk of sepsis and/or septic shock. Performed By: #### E LEC #### [facility] ([id number]) [address], [address] [place] [address] Rheumatoid factor Nephelomet ry Qn (S)on 02-19-2024 RHEUMATOID FACTOR <10 Normal <20 [facility] Comment on above: Performed By: #### E LEC #### [facility] ([id number]) [address], [address] [place] [address] S PNEUMONIAE AG Uon 02-19-20 S. pneumoniae Ag Ql (U) Negative Normal NEG [facility] Comment on above: Performed By: #### E LEC #### [facility] ([id number]) [address], [address] [place] [address] SARS/FLU A+B/RSV by NAAT/Mol ecularon 02-19-2024 SARS/FLU [...] operators who are performing tests using either Revstr DX or Tracsis systems and is limited to laboratories that [...] repeat. Fact Sheet for Healthcare Providers: https://www.fda.gov/media/ 145267/download Fact Sheet for Patients: https://www.fda.gov/media/ 885658/download Normal [facility] Comment on above: Performed By: #### E LEC #### [facility] ([id number]) [address] [place] [address], [address] [address] STREP PCR THROATon S. pyogenes DNA ELIZABETH+probe Nom (Unsp spec) STREP PCR THROAT Negative (qualifier value) Streptococcus Group A NOT detected by nucleic acid amplification. Normal [facility] Comment on above: Performed By: #### E LEC #### [facility] ([id number]) [address] [place] [address] Troponin I.cardiac High sens itivity method [Mass/Vol]on 02-19-2024 1 HOUR TROP I, HIGH SENSITIVITY 4 ng/L Normal <16 [facility] Comment on above: Performed By: #### E LEC #### [facility] ([id number]) [address] [place] [address], [address] [address] TROPONIN I, HIGH SENSITIVITY 4 ng/L Normal <16 [facility] Comment on above: Performed By: #### C BC, [facility], 875[address]-6, 2777-1 #### [facility] ([id number]) [address] [place] [address], [address] [address] URINE CULTUREon 02-19-2024 Bacteria identified Cx Nom [...] Interpretation NATALIA Status DAPTOMYCIN S F Susceptible [facility] Comment on above: Performed By: #### E LEC #### [facility] ([id number]) [address] [place] [address] URN MACROSCOPIC NURon 2023 BILIRUBIN OLVIN Negative Normal NEG [facility] Comment on above: Performed By: #### E LEC #### [facility] ([id number]) [address], [address] [place] [address] BLOOD/HGB OLVIN Small Abnormal NEG [facility] Comment on above: Performed By: #### E LEC #### [facility] ([id number]) [address], [address] [place] [address] GLUCOSE OLVIN Negative Normal NEG [facility] Comment on above: Performed By: #### E LEC #### [facility] ([id number]) [address] [place] [address] KETONES OLVIN Negative Normal NEG [facility] Comment on above: Performed By: #### E LEC #### [facility] ([id number]) [address], [address] [place] [address] LEUKOCYTE ESTERASE OLVIN Small Abnormal NEG [facility] Comment on above: Performed By: #### E LEC #### [facility] ([id number]) [address], [address] [place] [address] NITRITE OLVIN Negative Normal NEG [facility] Comment on above: Performed By: #### E LEC #### [facility] ([id number]) [address], [address] [place] [address] PH OLVIN 5.5 Normal 5.0-8.5 [facility] Comment on above: Performed By: #### E LEC #### [facility] ([id number]) [address], [address] [place] [address] PROTEIN OLVIN Negative Normal NEG [facility] Comment on above: Performed By: #### E LEC #### [facility] ([id number]) [address], [address] [place] [address] SPECIFIC GRAVITY OLVIN 1.015 Normal 1.003-1 .03 5 [facility] Comment on above: Performed By: #### E LEC #### [facility] ([id number]) [address], [address] [place] [address] UROBILINOGEN OLVIN 0.2 eu/dL Normal <1.1 [facility] Comment on above: Performed By: #### E LEC #### [facility] ([id number]) [address], [address] [place] [address] VENOUS BLOOD GASon 4 GUNJAN'S TEST Normal [facility] Comment on above: Performed By: #### E LEC #### [facility] ([id number]) [address], [address] [place] [address] Base excess Calc (Bld) [Moles/Vol] 10.0 mmol/L High 0.0-2.0 [facility] Comment on above: Performed By: #### E LEC #### [facility] ([id number]) [address], [address] [place] [address] Body temperature 98.6 [degF] Normal 37.0 [facility] Comment on above: Performed By: #### E LEC #### [facility] ([id number]) [address] [place] [address] HCO3 (Bld) [Moles/Vol] 34.7 mmol/L High 20.0-24.0 [facility] Comment on above: Performed By: #### E LEC #### [facility] ([id number]) [address] [place] [address] INSP. O2 CONC. 30 % Normal [facility] Comment on above: Performed By: #### E LEC #### [facility] ([id number]) [address], [address] [place] [address] Oxygen saturation in Blood 89.0 % Normal >80.0 [facility] Comment on above: Performed By: #### E LEC #### [facility] ([id number]) [address], [address] [place] [address] OXYGEN SOURCE NC Normal [facility] Comment on above: Performed By: #### E LEC #### [facility] ([id number]) [address] [place] [address] PCO2, VENOUS 46.3 MMHG Normal 35-50 [facility] Comment on above: Performed By: #### E LEC #### [facility] ([id number]) [address] [place] [address] PH, VENOUS 7.482 High 7.320-7.42 0 [facility] Comment on above: Performed By: #### E LEC #### [facility] ([id number]) [address] [place] [address] PO2, VENOUS 53 MMHG High 30-50 [facility] Comment on above: Performed By: #### E LEC #### [facility] ([id number]) [address] [facility], [address] [place] [address] SAMPLE SITE N/A Normal [facility] Comment on above: Performed By: #### E LEC #### [facility] ([id number]) [address] [facility], [address] [place] [address] SAMPLE TYPE VENOUS Normal [facility] Comment on above: Performed By: #### E LEC #### [facility] ([id number]) [address] [facility], [address] [place] [address] XR CHEST 1 VWon 02-19-2024 XR CHEST [...] Hayes MD on 02/19/2024 3:46 PM Normal [facility] aPTT Coag (PPP) [Time]on aPTT Coag (Bld) [Time] 32 s Normal 26-37 [facility] Comment on above: Performed By: #### C BC, BMP, 61363-1, 2777-1 #### [facility] ([id number]) [address] [facility] [place] [address] Basic Metabolic Panelon 01-27 Creatinine Clr Calc Pharmacy 50.21 Normal [facility] Comment on above: Result Comment: PERF ORMED BY: [address] [address] PATHOLOGIST CUB REPORTER JORGE MURRELL M.D. Performed By: #### E SR, CBC, CMP, BNP #### [facility] [address] [place] [address] [place] GFR/1.73 sq M.predicted MDRD (S/P/Bld) [Vol rate/Area] mL/min/{1.73_m2} Normal [facility] Comment on above: Performed By: #### E SR, CBC, CMP, BNP #### [facility] [address] [place] [address] [place] Calcium [Mass/volume] in Ser um or PlasmaOrdered By: Lucho Wassosylvia on 02-17-2024 Calcium [Mass/Vol] 8.5 mg/dL Low 8.6-10.3 [facility] Comment on above: Performed By: #### E SR, CBC, CMP, BNP #### [facility] [address] [place] [address] [place] Carbon dioxide, total [Moles /volume] in Serum or PlasmaOrdered By: Lucho Wassosylvia on 02-17-2024 CO2 [Moles/Vol] 29.4 mmol/L Normal 21.0-31.0 [facility] Comment on above: Performed By: #### E SR, CBC, CMP, BNP #### [facility] [address] [place] [address] [place] Chloride [Moles/volume] in S kaveh or PlasmaOrdered By: Lucho Wassosylvia on 02-17-2024 Chloride [Moles/Vol] 103 mmol/L Normal 98-107 [facility] Comment on above: Performed By: #### E SR, CBC, CMP, BNP #### [facility] [address] [place] [address] [place] Creatinine [Mass/volume] in Serum or PlasmaOrdered By: Lucho Wassosylvia on 02-17-2024 Creatinine [Mass/Vol] 0.90 mg/dL Normal 0.60-1.20 [facility] Comment on above: Performed By: #### E SR, CBC, CMP, BNP #### [facility] [address] [place] [address] [place] Erythrocyte distribution wid th [Ratio] by Automated countOrdered By: Lucho Wassosylvia on 02-17-2024 Erythrocyte distribution width (RBC) [Ratio] 18.2 % High 11.9-15.3 [facility] Comment on above: Performed By: #### E SR, CBC, CMP, BNP #### [facility] [address] Erythrocytes [#/volume] in B lood by Automated countOrdered By: Lucho Grullon on 02-17-2024 RBC (Bld) [#/Vol] 4.25 10*6/uL Normal 3.60-5.00 [facility] Comment on above: Performed By: #### E SR, CBC, CMP, BNP #### [facility] [address] Glucose [Mass/volume] in Ser um or PlasmaOrdered By: Lucho Grullon on 02-17-2024 Glucose [Mass/Vol] 85 mg/dL Normal 70-100 [facility] Comment on above: ADA recommended refe rence rangeRandom Glucose Reference Range is dependent on time and content of last meal. Glucose of more than 200 mg/dL in a nonstressed, ambulatory subject supports the diagnosis of Diabetes Mellitus. Result Comment: [place] om Glucose Reference Range is dependent on time and content of last meal. Glucose of more than 200 mg/dL in a nonstressed, ambulatory subject supports the diagnosis of Diabetes Mellitus. ADA recommended reference range Performed By: #### E SR, CBC, CMP, BNP #### [facility] [address] Hematocrit [Volume Fraction] of Blood by Automated countOrdered By: Lucho Grullon on 02-17-2024 Hematocrit (Bld) [Volume fraction] 32.8 % Low 34.0-46.4 [facility] Comment on above: Performed By: #### E SR, CBC, CMP, BNP #### [facility] [address] [place] [address] [place] Hemoglobin [Mass/volume] in BloodOrdered By: Lucho Grullon on 02-17-2024 Hemoglobin (Bld) [Mass/Vol] 10.6 g/dL Low 11.8-15.4 [facility] Comment on above: Performed By: #### E SR, CBC, CMP, BNP #### [facility] [address] Hemogram CBC Without Diffon 02-17-2024 Mean Corpuscular HGB Conc 32.3 g/dL Normal 32.0-35.0 [facility] Comment on above: Performed By: #### E SR, CBC, CMP, BNP #### [facility] [address] [place] [address] WBC (Bld) [#/Vol] 10.9 10*3/uL Normal 3.8-11.6 [facility] Comment on above: Performed By: #### E SR, CBC, CMP, BNP #### [address] Leukocytes [#/volume] correc juma for nucleated erythrocytes in Blood by Automated counOrdered By: Lucho Grullon on 02-17-2024 WBC corrected for nucl RBC Auto (Bld) [#/Vol] 10.9 10*3/uL 3.8-11.6 [facility] MCH [Entitic mass] by Automa juma countOrdered By: Lucho Grullon on 02-17-2024 MCH (RBC) [Entitic mass] 24.9 pg Normal 24.7-34.3 [facility] Comment on above: Performed By: #### E SR, CBC, CMP, BNP #### [address] [address] MCHC Auto (RBC) [Mass/Vol]Or dered By: Lucho Grullon on 02-17-2024 MCHC (RBC) [Mass/Vol] 32.3 g/dL 32.0-35.0 [facility] MCV [Entitic volume] by Auto mated countOrdered By: Lucho Grullon on 02-17-2024 MCV (RBC) [Entitic vol] 77.2 fL Low 80-100 [facility] Comment on above: Performed By: #### E SR, CBC, CMP, BNP #### [address] No Panel InformationOrdered By: Lucho Grullon on 02-17-2024 Estimated GFR (CKD-EPI) > 60.0 mL/Min [facility]acy Creatinine Clearance (Chem 50.21 [facility] Platelet mean volume [Entiti c volume] in Blood by Automated countOrdered By: Juneharini Génesismariza on 02-17-2024 Platelet mean volume (Bld) [Entitic vol] 6.9 fL Normal 6.3-10.7 [facility] Comment on above: Result Comment: PERF ORMED BY: [place] [address] PATHOLOGIST CUB REPORTER JORGE MURRELL M.D. Performed By: #### E SR, CBC, CMP, BNP #### [facility] [address] [place] [address] Platelets [#/volume] in Bloo d by Automated countOrdered By: Lucho Génesismariza on 02-17-2024 Platelets (Bld) [#/Vol] 370 10*3/uL Normal 150-450 [facility] Comment on above: Performed By: #### E SR, CBC, CMP, BNP #### [facility] [address] [place] [address] [place] Potassium [Moles/volume] in Serum or PlasmaOrdered By: Lucho Génesismariza on 02-17-2024 Potassium [Moles/Vol] 4.2 mmol/L Normal 3.5-5.1 [facility] Comment on above: Performed By: #### E SR, CBC, CMP, BNP #### [facility] [address] [place] [address] Serum or plasma anion gap de terminationOrdered By: Lucho Génesismariza on 02-17-2024 Anion gap [Moles/Vol] 10.8 mmol/L Normal 6.0-15.0 [facility] Comment on above: Performed By: #### E SR, CBC, CMP, BNP #### [place] [address] [place] Sodium [Moles/volume] in Ser um or PlasmaOrdered By: Lucho Génesismariza on 02-17-2024 Sodium [Moles/Vol] 139 mmol/L Normal 136-145 [facility] Comment on above: Performed By: #### E SR, CBC, CMP, BNP #### [address] Urea nitrogen [Mass/volume] in Serum or PlasmaOrdered By: Lucho Grullon on 02-17-2024 Urea nitrogen [Mass/Vol] 8 mg/dL Normal 7-25 [facility] Comment on above: Performed By: #### E SR, CBC, CMP, BNP #### [address] Aerobic Cultureon 02-16-2024 Aerobic Culture Light Normal Respira tory Kimberly 2 Days Gram Stain Result 3+ White Blood Cells 1+ Epithelial Cells 2+ Gram Positive Cocci 1+ Yeast Like Elements PERFORMED BY: [place] [address] PATHOLOGIST CUB REPORTER JORGE MURRELL M.D. Normal [facility] Comment on above: Performed By: #### E SR, CBC, CMP, BNP #### [address] Basic Metabolic Panelon 01-27 Anion gap [Moles/Vol] 9.6 mmol/L Normal 6.0-15.0 [facility] Comment on above: Performed By: #### E SR, CBC, CMP, BNP #### [address] Calcium [Mass/Vol] 8.5 mg/dL Low 8.6-10.3 [facility] Comment on above: Performed By: #### E SR, CBC, CMP, BNP #### [place] [address] [place] Chloride [Moles/Vol] 103 mmol/L Normal 98-107 [facility] Comment on above: Performed By: #### E SR, CBC, CMP, BNP #### [address] CO2 [Moles/Vol] 27.3 mmol/L Normal 21.0-31.0 [facility] Comment on above: Performed By: #### E SR, CBC, CMP, BNP #### [facility] [address] [place] [address] [place] Creatinine [Mass/Vol] 0.92 mg/dL Normal 0.60-1.20 [facility] Comment on above: Performed By: #### E SR, CBC, CMP, BNP #### [facility] [address] [place] [address] [place] Creatinine Clr Calc Pharmacy 47.75 Normal [facility] Comment on above: Result Comment: PERF ORMED BY: [place] [address] PATHOLOGIST CUB REPORTER JORGE MURRELL M.D. Performed By: #### E SR, CBC, CMP, BNP #### [place] [address] [place] GFR/1.73 sq M.predicted MDRD (S/P/Bld) [Vol rate/Area] mL/min/{1.73_m2} Normal [facility] Comment on above: Performed By: #### E SR, CBC, CMP, BNP #### [place] [address] [place] Glucose [Mass/Vol] 83 mg/dL Normal 70-100 [facility] Comment on above: Result Comment: [place] Glucose Reference Range is dependent on time and content of last meal. Glucose of more than 200 mg/dL in a nonstressed, ambulatory subject supports the diagnosis of Diabetes Mellitus. ADA recommended reference range Performed By: #### E SR, CBC, CMP, BNP #### [facility] [address] [place] [address] [place] Potassium [Moles/Vol] 3.9 mmol/L Normal 3.5-5.1 [facility] Comment on above: Performed By: #### E SR, CBC, CMP, BNP #### [place] [address] [place] Sodium [Moles/Vol] 136 mmol/L Normal 136-145 [facility] Comment on above: Performed By: #### E SR, CBC, CMP, BNP #### [place] [address] Urea nitrogen [Mass/Vol] 9 mg/dL Normal 7-25 [facility] Comment on above: Performed By: #### E SR, CBC, CMP, BNP #### [address] Gram stain for investigation of transfusion reactionOrdered By: Lucho Grullon on 02-16-2024 Microscopic observation Gram stain Nom (Unsp spec) 1 Day [facility] Hemogram CBC Without Diffon 02-16-2024 Erythrocyte distribution width (RBC) [Ratio] 18.3 % High 11.9-15.3 [facility] Comment on above: Performed By: #### E SR, CBC, CMP, BNP #### [address] Hematocrit (Bld) [Volume fraction] 33.8 % Low 34.0-46.4 [facility] Comment on above: Performed By: #### E SR, CBC, CMP, BNP #### [address] Hemoglobin (Bld) [Mass/Vol] 10.6 g/dL Low 11.8-15.4 [facility] Comment on above: Performed By: #### E SR, CBC, CMP, BNP #### [address] MCH (RBC) [Entitic mass] 24.1 pg Low 24.7-34.3 [facility] Comment on above: Performed By: #### E SR, CBC, CMP, BNP #### [address] MCV (RBC) [Entitic vol] 76.8 fL Low 80-100 [facility] Comment on above: Performed By: #### E SR, CBC, CMP, BNP #### [address] Mean Corpuscular HGB Conc 31.4 g/dL Low 32.0-35.0 [facility] Comment on above: Performed By: #### E SR, CBC, CMP, BNP #### [address] Platelet mean volume (Bld) [Entitic vol] 7.1 fL Normal 6.3-10.7 [facility] Comment on above: Result Comment: PERF ORMED BY: [place] [address] PATHOLOGIST CUB REPORTER JORGE MURRELL M.D. Performed By: #### E SR, CBC, CMP, BNP #### [address] Platelets (Bld) [#/Vol] 373 10*3/uL Normal 150-450 [facility] Comment on above: Performed By: #### E SR, CBC, CMP, BNP #### [address] RBC (Bld) [#/Vol] 4.41 10*6/uL Normal 3.60-5.00 [facility] Comment on above: Performed By: #### E SR, CBC, CMP, BNP #### [address] WBC (Bld) [#/Vol] 11.1 10*3/uL Normal 3.8-11.6 [facility] Comment on above: Performed By: #### E SR, CBC, CMP, BNP #### [address] Basic Metabolic Panelon 04-2 0-2023 Anion gap [Moles/Vol] 9.8 mmol/L Normal 6.0-15.0 [facility] Comment on above: Performed By: #### E SR, CBC, CMP, BNP #### [address] Calcium [Mass/Vol] 8.4 mg/dL Low 8.6-10.3 [facility] Comment on above: Performed By: #### E SR, CBC, CMP, BNP #### [address] Chloride [Moles/Vol] 103 mmol/L Normal 98-107 [facility] Comment on above: Performed By: #### E SR, CBC, CMP, BNP #### [facility] [address] [place] [address] [place] CO2 [Moles/Vol] 28.7 mmol/L Normal 21.0-31.0 [facility] Comment on above: Performed By: #### E SR, CBC, CMP, BNP #### [facility] [address] [place] [address] [place] Creatinine [Mass/Vol] 1.16 mg/dL Normal 0.60-1.20 [facility] Comment on above: Performed By: #### E SR, CBC, CMP, BNP #### [facility] [address] [place] [address] [place] Creatinine Clr Calc Pharmacy 37.75 Normal [facility] Comment on above: Performed By: #### E SR, CBC, CMP, BNP #### [facility] [address] [place] [address] [place] GFR/1.73 sq M.predicted MDRD (S/P/Bld) [Vol rate/Area] 48.257 mL/min/{1.73_m2} Normal [facility] Comment on above: Performed By: #### E SR, CBC, CMP, BNP #### [address] Glucose [Mass/Vol] 79 mg/dL Normal 70-100 [facility] Comment on above: Result Comment: [place] Glucose Reference Range is dependent on time and content of last meal. Glucose of more than 200 mg/dL in a nonstressed, ambulatory subject supports the diagnosis of Diabetes Mellitus. ADA recommended reference range Performed By: #### E SR, CBC, CMP, BNP #### [facility] [address] [place] [address] [place] Potassium [Moles/Vol] 3.5 mmol/L Normal 3.5-5.1 [facility] Comment on above: Performed By: #### E SR, CBC, CMP, BNP #### [facility] [address] [place] [address] [place] Sodium [Moles/Vol] 138 mmol/L Normal 136-145 [facility] Comment on above: Performed By: #### E SR, CBC, CMP, BNP #### [address] Urea nitrogen [Mass/Vol] 14 mg/dL Normal 7-25 [facility] Comment on above: Performed By: #### E SR, CBC, CMP, BNP #### [address] Clostridioides difficile tox in B tcdB gene [Presence] in Stool by ELIZABETH with probe deteOrdered By: Lucho Grullon on 02-15-2024 C. difficile toxin B tcdB gene ELIZABETH+probe Ql (Stl) Negative Negative [facility] Comment on above: Testing performed by RT-PCR Clostridium Difficileon 01-27 Clostridium Difficile Negative Normal Negative [facility] Comment on above: Order Comment: > or = to 3 loose/watery stools in the last 24 HRS? Y Is patient on promotility agents or tube feeding? N Result Comment: Test ing performed by RT-PCR PERFORMED BY: [place] [address] PATHOLOGIST CUB REPORTER JORGE MURRELL M.D. Performed By: #### E SR, CBC, CMP, BNP #### [address] Hemogram CBC Without Diffon 02-15-2024 Erythrocyte distribution width (RBC) [Ratio] 18.2 % High 11.9-15.3 [facility] Comment on above: Performed By: #### E SR, CBC, CMP, BNP #### [address] Hematocrit (Bld) [Volume fraction] 34.6 % Normal 34.0-46.4 [facility] Comment on above: Performed By: #### E SR, CBC, CMP, BNP #### [address] Hemoglobin (Bld) [Mass/Vol] 10.9 g/dL Low 11.8-15.4 [facility] Comment on above: Performed By: #### E SR, CBC, CMP, BNP #### [address] MCH (RBC) [Entitic mass] 24.2 pg Low 24.7-34.3 [facility] Comment on above: Performed By: #### E SR, CBC, CMP, BNP #### [address] MCV (RBC) [Entitic vol] 77.1 fL Low 80-100 [facility] Comment on above: Performed By: #### E SR, CBC, CMP, BNP #### [address] Mean Corpuscular HGB Conc 31.4 g/dL Low 32.0-35.0 [facility] Comment on above: Performed By: #### E SR, CBC, CMP, BNP #### [address] Platelet mean volume (Bld) [Entitic vol] 7.0 fL Normal 6.3-10.7 [facility] Comment on above: Result Comment: PERF ORMED BY: [place] [address] PATHOLOGIST CUB REPORTER JORGE MURRELL M.D. Performed By: #### E SR, CBC, CMP, BNP #### [place] [address] [place] Platelets (Bld) [#/Vol] 333 10*3/uL Normal 150-450 [facility] Comment on above: Performed By: #### E SR, CBC, CMP, BNP #### [address] RBC (Bld) [#/Vol] 4.48 10*6/uL Normal 3.60-5.00 [facility] Comment on above: Performed By: #### E SR, CBC, CMP, BNP #### [address] WBC (Bld) [#/Vol] 10.0 10*3/uL Normal 3.8-11.6 [facility] Comment on above: Performed By: #### E SR, CBC, CMP, BNP #### [place] [address] [place] Lactoferrin, Stool WBCon Lactoferrin, Stool WBC LACTOFERRIN Positive for Fecal Lactoferrin Review patient history for chronic inflammatory conditions and status which can cause positive results unrelated to acute infectious disease. -- Reference range = Negative PERFORMED BY: [place] [address] PATHOLOGIST CUB REPORTER JORGE MURRELL M.D. Normal [facility] Comment on above: Performed By: #### E SR, CBC, CMP, BNP #### [address] Magnesium [Mass/volume] in S kaveh or PlasmaOrdered By: Lucho Grullon on 02-15-2024 Magnesium [Mass/Vol] 1.5 mg/dL Low 1.9-2.7 [facility] Comment on above: Result Comment: PERF ORMED BY: [place] [address] PATHOLOGIST CUB REPORTER JORGE MURRELL M.D. Performed By: #### E SR, CBC, CMP, BNP #### [address] Stool Cultureon 02-15-2024 Stool culture Negative for Shiga T oxin 1 Negative for Shiga Toxin 2 -- A negative Shiga Toxin result may occur if the antigen level in the specimen is below the detection limit of the assay. Stool culture results No Salmonella, Shigella, Campy or E. coli 0157:H7 Isolated PERFORMED BY: [place] [address] PATHOLOGIST CUB REPORTER JORGE MURRELL M.D. Normal [facility] Comment on above: Performed By: #### E SR, CBC, CMP, BNP #### [address] Stool bacteria identificatio n by cultureOrdered By: Lucho Grullon on 02-15-2024 Bacteria identified Cx Nom (Stl) [facility] Stool lactoferrin detectionO rdered By: Lucho Grullon on 02-15-2024 Lactoferrin Ql (Stl) [facility] US venous duplex LE RTon US venous duplex LE RT [facility] Main [place] [address] [place] [address] Ultrasound Report Signed Patient: Gera Perdue MR#: [id number] : 1945 Acct:[id number] Age/Sex: 78 / F ADM Date: 02/14/24 Loc: Room: [address] [place] [address] Type: ADM IN Attending Dr: Lucho Grullon [...] Hilario Angulo MD02/15/2024 11:55 AM Dictation Location: [place] [address] Tech: Elizabeth Garcia Transcribed By: ANA 02/15/24 1155 Dictated By: Hilario Angulo MD 02/15/24 1154 Signed By: 02/15/24 1155 Normal [facility] Alanine aminotransferase [En zymatic activity/volume] in Serum or PlasmaOrdered By: Kadie Jones on 02-14-2024 ALT [Catalytic activity/Vol] 5 U/L Low 7-52 [facility] Comment on above: Performed By: #### S CAN CBC, LIPASE, CMP, HS TROP, MG, NORMA #### [facility] [address] [place] [address] [place] Albumin [Mass/volume] in Ser um or Plasma by Bromocresol green (BCG) dye binding methoOrdered By: Kadie Jones on 02-14-2024 Albumin BCG dye [Mass/Vol] 3.7 g/dL 3.5-5.7 [facility] Alkaline phosphatase [Enzyma tic activity/volume] in Serum or PlasmaOrdered By: Kadie Jones on 02-14-2024 ALP [Catalytic activity/Vol] 75 U/L Normal 34-104 [facility] Comment on above: Performed By: #### S CAN CBC, LIPASE, CMP, HS TROP, MG, NORMA #### [facility] [address] [place] [id number] [place] Amylase [Enzymatic activity/ volume] in Serum or PlasmaOrdered By: Kadie Jones on 02-14-2024 Amylase [Catalytic activity/Vol] 10 U/L Low 29-103 [facility] Comment on above: Performed By: #### S CAN CBC, LIPASE, CMP, HS TROP, MG, NORMA #### [facility] [address] [place] [id number] [place] Aspartate aminotransferase [ Enzymatic activity/volume] in Serum or PlasmaOrdered By: Kadie Jones on 02-14-2024 AST [Catalytic activity/Vol] 11 U/L Low 13-39 [facility] Comment on above: Performed By: #### S CAN CBC, LIPASE, CMP, HS TROP, MG, NORMA #### [address] Automated basophil %Ordered By: Kadie Bullimore on 02-14-2024 Basophils/100 WBC (Bld) 0.9 % Normal . [facility] Comment on above: Performed By: #### S CAN CBC, LIPASE, CMP, HS TROP, MG, NORMA #### [address] Automated basophil countOrde red By: Kadie Bullimore on 02-14-2024 Basophils (Bld) [#/Vol] 0.1 10*3/uL Normal 0.0-0.2 [facility] Comment on above: Result Comment: PERF ORMED BY: [place] [address] PATHOLOGIST CUB REPORTER JORGE MURRELL M.D. Performed By: #### S CAN CBC, LIPASE, CMP, HS TROP, MG, NORMA #### [address] Automated blood monocyte cou ntOrdered By: Kadie Bullimore on 02-14-2024 Monocytes (Bld) [#/Vol] 1.7 10*3/uL High 0.0-0.8 [facility] Comment on above: Performed By: #### S CAN CBC, LIPASE, CMP, HS TROP, MG, NORMA #### [address] Automated eosinophil %Ordere d By: Kadie Bullimore on 02-14-2024 Eosinophils/100 WBC (Bld) 0.4 % Normal . [facility] Comment on above: Performed By: #### S CAN CBC, LIPASE, CMP, HS TROP, MG, NORMA #### [address] Automated eosinophil countOr dered By: Kadie Bullimore on 02-14-2024 Eosinophils (Bld) [#/Vol] 0.0 10*3/uL Normal 0.0-0.45 [facility] Comment on above: Performed By: #### S CAN CBC, LIPASE, CMP, HS TROP, MG, NORMA #### [facility] [address] Automated erythrocytes count in urine sediment (number/area)Ordered By: Kadie Jones on 02-14-2024 RBC Auto (Urine sed) [#/Area] 0-1 [HPF] 0-4 [facility] Automated leukocytes count i n urine sediment (number/area)Ordered By: Kadie Hustonore on 02-14-2024 WBC Auto (Urine sed) [#/Area] 50-100 [HPF] 0-4 [facility] Automated monocyte %Ordered By: Kadieruslan Hungjessicaore on 02-14-2024 Monocytes/100 WBC (Bld) 12.3 % Normal . [facility] Comment on above: Performed By: #### S CAN CBC, LIPASE, CMP, HS TROP, MG, NORMA #### [facility] [address] [place] [address] Automated neutrophil %Ordere d By: Kadie Jones on 02-14-2024 Neutrophils/100 WBC (Bld) 62.7 % Normal . [facility] Comment on above: Performed By: #### S CAN CBC, LIPASE, CMP, HS TROP, MG, NORMA #### [facility] [address] [place] [address] Automated urine color determ inationOrdered By: Kadie Jones on 02-14-2024 Color (U) Dark yellow Critically abnormal Yellow [facility] Comment on above: Order Comment: Name Collection Type:: Straight Catheter Performed By: #### E SR, CBC, CMP, BNP #### [facility] [address] [place] [address] BNP ser/plasOrdered By: Bianca Jones on 02-14-2024 Natriuretic peptide B (Bld) [Mass/Vol] 29.0 pg/mL Normal 5-100 [facility] Comment on above: Result Comment: PERF ORMED BY: [place] [address] PATHOLOGIST CUB REPORTER JORGE MURRELL M.D. Performed By: #### E SR, CBC, CMP, BNP #### [address] Bilirubin Test strip Ql (U)O rdered By: Kadie Jones on 02-14-2024 Bilirubin Ql (U) Negative Negative [facility] Bilirubin.total [Mass/volume ] in Serum or PlasmaOrdered By: Kadie Jones on 02-14-2024 Bilirubin [Mass/Vol] 0.5 mg/dL Normal 0.3-1.0 [facility] Comment on above: Performed By: #### S CAN CBC, LIPASE, CMP, HS TROP, MG, NORMA #### [address] Blood Cultureon 02-14-2024 Bacteria identified Cx Nom (Bld) NO GROWTH 5 DAYS PERFORMED BY: [place] [address] PATHOLOGIST CUB REPORTER JORGE MURRELL M.D. Normal [facility] Comment on above: Performed By: #### E SR, CBC, CMP, BNP #### [address] Bacteria identified Cx Nom (Bld) NO GROWTH 5 DAYS PERFORMED BY: [place] [address] PATHOLOGIST CUB REPORTER JORGE MURRELL M.D. Normal [facility] Comment on above: Performed By: #### E SR, CBC, CMP, BNP #### [address] COVID CepheidOrdered By: Abbi Jones on 02-14-2024 SARS-CoV-2 (COVID-19) Ab IA Ql Negative Negative [facility] Comment on above: This is a duplicate Cepheid Xpert Xpress CoV-2/Flu/RSV Plus RNA by RT-PCR result to be used for statistical tracking purpose only. SARS-CoV-2 (COVID-19) RNA ELIZABETH+probe Ql (Unsp spec) [facility] COVID-19 / Flu A/B / RSV PCR [...] or Cepheid Disclaimer revoked sooner. PERFORMED BY: [facility] [place] [address] PATHOLOGIST CUB REPORTER JORGE Schultz [facility] Comment on above: Performed By: #### E SR, CBC, CMP, BNP #### [facility] [address] abdomen pelvis w conon CT abdomen pelvis w con [facility] Main [place] [address] [place] [address] CT Scan Report Signed Patient: Gera Perdue MR#: [id number] : 1945 Acct:[id number] Age/Sex: 78 / F ADM Date: 02/14/24 Loc: ER Room: Type: [facility] ER Attending Dr: Copies to: CHIP [...] Bhavesh Avendaño M.D.02/14/2024 2:21 PM Dictation Location: [place] [address] Transcribed By: ANA 02/14/24 1421 Dictated By: Bhavesh Avendaño II, MD 02/14/24 1411 Signed By: 02/14/24 1421 Normal [facility] Calcium [Mass/volume] in Ser um or PlasmaOrdered By: Kadie Jones on 02-14-2024 Calcium [Mass/Vol] 9.5 mg/dL Normal 8.6-10.3 [facility] Comment on above: Performed By: #### S CAN CBC, LIPASE, CMP, HS TROP, MG, NORMA #### [facility] [address] Carbon dioxide, total [Moles /volume] in Serum or PlasmaOrdered By: Kadie Jones on 02-14-2024 CO2 [Moles/Vol] 30.8 mmol/L Normal 21.0-31.0 [facility] Comment on above: Performed By: #### S CAN CBC, LIPASE, CMP, HS TROP, MG, NORMA #### [address] Cepheid COVID PCR Negativeon 02-14-2024 SARS-CoV-2 (COVID-19) RNA ELIZABETH+probe Ql (Unsp spec) Negative Normal Negative [facility] Comment on above: Result Comment: This is a duplicate Cepheid Xpert Xpress CoV-2/Flu/RSV Plus RNA by RT-PCR result to be used for statistical tracking purpose only. PERFORMED BY: [place] [address] PATHOLOGIST CUB REPORTER JORGE MURRELL M.D. Performed By: #### E SR, CBC, CMP, BNP #### [address] Chloride [Moles/volume] in S kaveh or PlasmaOrdered By: Kadie Jones on 02-14-2024 Chloride [Moles/Vol] 97 mmol/L Low 98-107 [facility] Comment on above: Performed By: #### S CAN CBC, LIPASE, CMP, HS TROP, MG, NORMA #### [address] Comprehensive Metabolic Pane harsha 02-14-2024 Albumin [Mass/Vol] 3.7 g/dL Normal 3.5-5.7 [facility] Comment on above: Performed By: #### S CAN CBC, LIPASE, CMP, HS TROP, MG, NORMA #### [address] Creatinine Clr Calc Pharmacy 32.86 Normal [facility] Comment on above: Performed By: #### S CAN CBC, LIPASE, CMP, HS TROP, MG, NORMA #### [address] GFR/1.73 sq M.predicted MDRD (S/P/Bld) [Vol rate/Area] 41.325 mL/min/{1.73_m2} Normal [facility] Comment on above: Performed By: #### S CAN CBC, LIPASE, CMP, HS TROP, MG, NORMA #### [address] Creatinine [Mass/volume] in Serum or PlasmaOrdered By: Kadie Jones on 02-14-2024 Creatinine [Mass/Vol] 1.32 mg/dL High 0.60-1.20 [facility] Comment on above: Performed By: #### S CAN CBC, LIPASE, CMP, HS TROP, MG, NORMA #### [address] Dipstick and Microscopicon 0 02-14-2024 Appearance (U) Clear Normal Clear [facility] Comment on above: Order Comment: Name Collection Type:: Straight Catheter Performed By: #### E SR, CBC, CMP, BNP #### [address] Bacteria,Urine 4+ High None Seen [facility] Comment on above: Order Comment: Name Collection Type:: Straight Catheter Performed By: #### E SR, CBC, CMP, BNP #### [address] Bilirubin,Urine Negative Normal Negative [facility] Comment on above: Order Comment: Name Collection Type:: Straight Catheter Performed By: #### E SR, CBC, CMP, BNP #### [address] Glucose Ql (U) Normal Normal Normal [facility] Comment on above: Order Comment: Name Collection Type:: Straight Catheter Performed By: #### E SR, CBC, CMP, BNP #### [address] Hyaline Casts,Urine 9-19 High 0-8 [facility] Comment on above: Order Comment: Name Collection Type:: Straight Catheter Result Comment: PERF ORMED BY: [place] [address] PATHOLOGIST CUB REPORTER JORGE MURRELL M.D. Performed By: #### E SR, CBC, CMP, BNP #### [address] Ketones Ql (U) Trace High Negative [facility] Comment on above: Order Comment: Name Collection Type:: Straight Catheter Performed By: #### E SR, CBC, CMP, BNP #### [address] Leukocyte esterase Test strip Ql (U) 3+ High Negative [facility] Comment on above: Order Comment: Name Collection Type:: Straight Catheter Performed By: #### E SR, CBC, CMP, BNP #### [address] Nitrite,Urine Positive High Negative [facility] Comment on above: Order Comment: Name Collection Type:: Straight Catheter Performed By: #### E SR, CBC, CMP, BNP #### [address] Occult Blood,Urine Trace High Negative [facility] Comment on above: Order Comment: Name Collection Type:: Straight Catheter Result Comment: PERF ORMED BY: [place] [address] PATHOLOGIST CUB REPORTER JORGE MURRELL M.D. Performed By: #### E SR, CBC, CMP, BNP #### [address] RBC LM.HPF (Urine sed) [#/Area] 0 /[HPF] Normal 0-4 [facility] Comment on above: Order Comment: Name Collection Type:: Straight Catheter Performed By: #### E SR, CBC, CMP, BNP #### [address] Specificy [place],Urine 1.024 Normal 1.001-1.03 0 [facility] Comment on above: Order Comment: Name Collection Type:: Straight Catheter Performed By: #### E SR, CBC, CMP, BNP #### [address] Squamous Epithelial Cell,Urine None Seen Normal 0-2 [facility] Comment on above: Order Comment: Name Collection Type:: Straight Catheter Performed By: #### E SR, CBC, CMP, BNP #### [address] Urobilinogen,Urine Normal Normal Normal [facility] Comment on above: Order Comment: Name Collection Type:: Straight Catheter Performed By: #### E SR, CBC, CMP, BNP #### [address] WBC,Urine 50-100 High 0-4 [facility] Comment on above: Order Comment: Name Collection Type:: Straight Catheter Performed By: #### E SR, CBC, CMP, BNP #### [address] ECG 12 lead ECGon 02-14-2024 ECG 12 lead ECG [facility] Main [place] [address] [place] [address] Electrocardiograph Report Signed Patient: Gera Perdue MR#: [id number] : 1945 Acct:[id number] Age/Sex: 78 / F ADM Date: 02/14/24 Loc: ER Room: Type: [facility] ER Attending Dr: Ordering Provider: CHIP [...] was found Confirmed by MARSHALL DOMINGUEZ DO ([id number]) on 02/14/2024 3:23:36 PM Referred By: Electronically Signed By:MARSHALL DOMINGUEZ DO Transcribed By: MUS Signed By Marshall Dominguez DO 02/13 1523 Normal [facility] Erythrocyte distribution wid th [Ratio] by Automated countOrdered By: Kadie Jones on 02-14-2024 Erythrocyte distribution width (RBC) [Ratio] 18.4 % High 11.9-15.3 [facility] Comment on above: Performed By: #### S CAN CBC, LIPASE, CMP, HS TROP, MG, NORMA #### [facility] [address] Erythrocytes [#/volume] in B lood by Automated countOrdered By: Kadie Jones on 02-14-2024 RBC (Bld) [#/Vol] 5.04 10*6/uL High 3.60-5.00 [facility] Comment on above: Performed By: #### S CAN CBC, LIPASE, CMP, HS TROP, MG, NORMA #### [facility] [address] Glucose [Mass/volume] in Ser um or PlasmaOrdered By: Kadie Jones on 02-14-2024 Glucose [Mass/Vol] 85 mg/dL Normal 70-100 [facility] Comment on above: ADA recommended refe rence rangeRandom Glucose Reference Range is dependent on time and content of last meal. Glucose of more than 200 mg/dL in a nonstressed, ambulatory subject supports the diagnosis of Diabetes Mellitus. Result Comment: [place] om Glucose Reference Range is dependent on time and content of last meal. Glucose of more than 200 mg/dL in a nonstressed, ambulatory subject supports the diagnosis of Diabetes Mellitus. ADA recommended reference range Performed By: #### S CAN CBC, LIPASE, CMP, HS TROP, MG, NORMA #### [facility] [address] Hematocrit [Volume Fraction] of Blood by Automated countOrdered By: Kadie Jones on 02-14-2024 Hematocrit (Bld) [Volume fraction] 38.5 % Normal 34.0-46.4 [facility] Comment on above: Performed By: #### S CAN CBC, LIPASE, CMP, HS TROP, MG, NORMA #### [facility] [address] Hemoglobin [Mass/volume] in BloodOrdered By: Kadie Jones on 02-14-2024 Hemoglobin (Bld) [Mass/Vol] 12.2 g/dL Normal 11.8-15.4 [facility] Comment on above: Performed By: #### S CAN CBC, LIPASE, CMP, HS TROP, MG, NORMA #### [facility] [address] [place] [address] Ketones Auto test strip (U) [Mass/Vol]Ordered By: Kadie Jones on 02-14-2024 Ketones (U) [Mass/Vol] Trace Negative [facility] - UrinalysisOrder ed By: Kadie Jones on 02-14-2024 Hyaline casts LM Ql (Urine sed) 9 [LPF] 0-8 [facility] Lactate [Moles/volume] in Se rum or PlasmaOrdered By: Kadie Jones on 02-14-2024 Lactate [Moles/Vol] 0.8 mmol/L Normal 0.5-2.2 [facility] Comment on above: Result Comment: PERF ORMED BY: [place] [address] PATHOLOGIST CUB REPORTER JORGE MURRELL M.D. Performed By: #### E SR, CBC, CMP, BNP #### [facility] [address] [place] [address] Leukocytes [#/volume] correc juma for nucleated erythrocytes in Blood by Automated counOrdered By: Kadie Jones on 02-14-2024 WBC corrected for nucl RBC Auto (Bld) [#/Vol] 13.6 10*3/uL 3.8-11.6 [facility] Leukocytes [#/volume] in Blo od by Automated countOrdered By: Kadieruslan Jones on 02-14-2024 WBC (Bld) [#/Vol] 13.6 10*3/uL High 3.8-11.6 [facility] Comment on above: Performed By: #### S CAN CBC, LIPASE, CMP, HS TROP, MG, NORMA #### [facility] [address] [place] [address] Lipase [Enzymatic activity/v olume] in Serum or PlasmaOrdered By: Kadie Jones on 02-14-2024 Lipase [Catalytic activity/Vol] 6.0 U/L Low 11.0-82.0 [facility] Comment on above: Result Comment: PERF ORMED BY: [place] [address] PATHOLOGIST CUB REPORTER JORGE MURRELL M.D. Performed By: #### S CAN CBC, LIPASE, CMP, HS TROP, MG, NORMA #### [address] Lymphocytes [#/volume] in Bl ood by Automated countOrdered By: Kadie Jones on 02-14-2024 Lymphocytes (Bld) [#/Vol] 3.2 10*3/uL Normal 1.00-4.8 [facility] Comment on above: Performed By: #### S CAN CBC, LIPASE, CMP, HS TROP, MG, NORMA #### [address] Lymphocytes/100 leukocytes i n Blood by Automated countOrdered By: Kadie Jones on 02-14-2024 Lymphocytes/100 WBC (Bld) 23.7 % Normal . [facility] Comment on above: Performed By: #### S CAN CBC, LIPASE, CMP, HS TROP, MG, NORMA #### [address] MCH [Entitic mass] by Automa juma countOrdered By: Kadie Jones on 02-14-2024 MCH (RBC) [Entitic mass] 24.3 pg Low 24.7-34.3 [facility] Comment on above: Performed By: #### S CAN CBC, LIPASE, CMP, HS TROP, MG, NORMA #### [facility] [address] [place] [address] MCHC Auto (RBC) [Mass/Vol]Or dered By: Kadie Bullimore on 02-14-2024 MCHC (RBC) [Mass/Vol] 31.8 g/dL 32.0-35.0 [facility] MCV [Entitic volume] by Auto mated countOrdered By: Kadie Jones on 02-14-2024 MCV (RBC) [Entitic vol] 76.4 fL Low 80-100 [facility] Comment on above: Performed By: #### S CAN CBC, LIPASE, CMP, HS TROP, MG, NORMA #### [facility] [address] [place] [address] Magnesium [Mass/volume] in S kaveh or PlasmaOrdered By: Kadie Hustonore on 02-14-2024 Magnesium [Mass/Vol] 1.1 mg/dL Low 1.9-2.7 [facility] Comment on above: Performed By: #### S CAN CBC, LIPASE, CMP, HS TROP, MG, NORMA #### [facility] [address] [place] [address] Monocyte distribution width [Entitic volume] in Blood by AutomatedOrdered By: Kadie Jones on 02-14-2024 Monocyte distribution width Auto (Bld) [Entitic vol] 25.16 % 0.00-20.00 [facility] Comment on above: For adults in ED, MD W > 20.0 may be associated with a higher risk of sepsis during the first 12 hrs of hospital admission Neutrophils [#/volume] in Bl ood by Automated countOrdered By: Kadie Jones on 02-14-2024 Neutrophils (Bld) [#/Vol] 8.5 10*3/uL High 1.8-7.7 [facility] Comment on above: Performed By: #### S CAN CBC, LIPASE, CMP, HS TROP, MG, NORMA #### [facility] [address] [place] [address] Nitrite Test strip Ql (U)Ord ered By: Kadie Jones on 02-14-2024 Nitrite Ql (U) Positive Negative [facility] No Panel InformationOrdered By: Kadie Jones on 02-14-2024 Estimated GFR (CKD-EPI) 41.325 mL/Min [facility] Creatinine Clearance (Chem 32.86 [facility] Nucleated erythrocytes [Pres ence] in Blood by Automated countOrdered By: Kadie Jones on 02-14-2024 Nucleated RBC Auto Ql (Bld) 0.1 /100{WBC} 0-0.5 [facility] Platelet adequacy [Presence] in Blood by Light microscopyOrdered By: Kadie Jones on 02-14-2024 Platelets LM Ql (Bld) Normal Normal [facility] Platelet mean volume [Entiti c volume] in Blood by Automated countOrdered By: Kadie Jones on 02-14-2024 Platelet mean volume (Bld) [Entitic vol] 7.0 fL Normal 6.3-10.7 [facility] Comment on above: Performed By: #### S CAN CBC, LIPASE, CMP, HS TROP, MG, NORMA #### [facility] [address] Platelet morphology finding [Identifier] in BloodOrdered By: Kadie Jones on 02-14-2024 Platelet morphology finding Nom (Bld) Normal Normal [facility] Platelets [#/volume] in Bloo d by Automated countOrdered By: Kadie Jones on 02-14-2024 Platelets (Bld) [#/Vol] 448 10*3/uL Normal 150-450 [facility] Comment on above: Performed By: #### S CAN CBC, LIPASE, CMP, HS TROP, MG, NORMA #### [facility] [address] [place] [address] [place] Potassium [Moles/volume] in Serum or PlasmaOrdered By: Kadie Jones on 02-14-2024 Potassium [Moles/Vol] 4.0 mmol/L Normal 3.5-5.1 [facility] Comment on above: Performed By: #### S CAN CBC, LIPASE, CMP, HS TROP, MG, NORMA #### [facility] [address] [place] [address] [place] Protein [Mass/volume] in Ser um or PlasmaOrdered By: Kadie Jones on 02-14-2024 Protein [Mass/Vol] 7.9 g/dL Normal 6.4-8.9 [facility] Comment on above: Performed By: #### S CAN CBC, LIPASE, CMP, HS TROP, MG, NORMA #### [facility] [address] [place] [address] [place] RBC morphologyOrdered By: Jeannie Jones on 02-14-2024 RBC morphology finding Nom (Bld) Normal Normal Normal [facility] Comment on above: Performed By: #### S CAN CBC, LIPASE, CMP, HS TROP, MG, NORMA #### [address] Scan and CBCon 02-14-2024 Mean Corpuscular HGB Conc 31.8 g/dL Low 32.0-35.0 [facility] Comment on above: Performed By: #### S CAN CBC, LIPASE, CMP, HS TROP, MG, NORMA #### [address] Monocytes/100 WBC (Bld) 25.16 % High 0.00-20.00 [facility] Comment on above: Result Comment: For adults in ED, MDW > 20.0 may be associated with a higher risk of sepsis during the first 12 hrs of hospital admission Performed By: #### S CAN CBC, LIPASE, CMP, HS TROP, MG, NORMA #### [address] NRBC% 0.1 /100{WBC} Normal 0-0.5 [facility] Comment on above: Performed By: #### S CAN CBC, LIPASE, CMP, HS TROP, MG, NORMA #### [address] Platelet Estimate Normal Normal Normal [facility] Comment on above: Performed By: #### S CAN CBC, LIPASE, CMP, HS TROP, MG, NORMA #### [address] Platelet Morphology Normal Normal Normal [facility] Comment on above: Result Comment: PERF ORMED BY: [place] [address] PATHOLOGIST CUB REPORTER JORGE MURRELL M.D. Performed By: #### S CAN CBC, LIPASE, CMP, HS TROP, MG, NORMA #### [address] Serum globulin measurement b y calculation (mass/volume)Ordered By: Kadie Jones on 02-14-2024 Globulin (S) [Mass/Vol] 4.2 g/dL [facility] Comment on above: Performed By: #### S CAN CBC, LIPASE, CMP, HS TROP, MG, NORMA #### [facility] [address] Serum or plasma albumin/glob ulin mass ratioOrdered By: Kadie Hustonore on 02-14-2024 Albumin/Globulin [Mass ratio] 0.9 {ratio} [facility] Comment on above: Performed By: #### S CAN CBC, LIPASE, CMP, HS TROP, MG, NORMA #### [facility] [address] [place] [address] Serum or plasma anion gap de terminationOrdered By: Kadie Jones on 02-14-2024 Anion gap [Moles/Vol] 14.2 mmol/L Normal 6.0-15.0 [facility] Comment on above: Performed By: #### S CAN CBC, LIPASE, CMP, HS TROP, MG, NORMA #### [address] Sodium [Moles/volume] in Ser um or PlasmaOrdered By: Kadie Jones on 02-14-2024 Sodium [Moles/Vol] 138 mmol/L Normal 136-145 [facility] Comment on above: Performed By: #### S CAN CBC, LIPASE, CMP, HS TROP, MG, NORMA #### [facility] [address] [place] [address] Specific gravity Auto test s trip (U) [Rel density]Ordered By: Kadie Jones on 02-14-2024 Specific gravity (U) [Rel density] 1.024 1.001-1.03 0 [facility] Squamous epithelial cells de tection in urine sediment by light microscopyOrdered By: Kadie Jones on 02-14-2024 Epithelial cells.squamous LM Ql (Urine sed) None seen [HPF] 0-2 [facility] Troponin I High Sensitivityo n 02-14-2024 Troponin I High Sensitivity 6.5 pg/mL Normal 0.0-15.0 [facility] Comment on above: Result Comment: PERF ORMED BY: [address] [place] [address] PATHOLOGIST CUB REPORTER JORGE MURRELL M.D. Performed By: #### S CAN CBC, LIPASE, CMP, HS TROP, MG, NORMA #### [address] Troponin I.cardiac [Mass/vol ume] in Serum or Plasma by Detection limit <= 0.01 ng/Ordered By: Kadie Jones on 02-14-2024 Troponin I.cardiac DL <= 0.01 ng/mL [Mass/Vol] 6.5 pg/mL 0.0-15.0 [facility] Urea nitrogen [Mass/volume] in Serum or PlasmaOrdered By: Kadie Jones on 02-14-2024 Urea nitrogen [Mass/Vol] 18 mg/dL Normal 7-25 [facility] Comment on above: Performed By: #### S PARVEZ CBC, LIPASE, CMP, HS TROP, MG, NORMA #### [address] Urine Cultureon 02-14-2024 Bacteria identified Cx Nom (U) ORGANISM: Klebsiella pneumoniae (O:KLEPNE) [place] Count >100,000 Aerobic NATALIA Charge (NMIC56) SUSCEPTIBILITY [...] RESISTANT TO ALL B-LACTAM DRUGS. PERFORMED BY: [place] [address] PATHOLOGIST CUB REPORTER JORGE MURRELL M.D. Normal [facility] Comment on above: Performed By: #### E SR, CBC, CMP, BNP #### [address] Urine bacteria detection by automated methodOrdered By: Kadie Jones on 02-14-2024 Bacteria Auto Ql (U) 4+ None Seen [facility] Urine clarity by refractomet ry automatedOrdered By: Kadie Jones on 02-14-2024 Clarity Refractometry automated (U) Clear Clear [facility] Urine culture routineOrdered By: Kadie Jones on 02-14-2024 Bacteria identified Cx Nom (U) Klebsiella pneumoniae [facility] Urine glucose measurement by automated test strip (mass/volume)Ordered By: Kadie Jones on 02-14-2024 Glucose Auto test strip (U) [Mass/Vol] Normal mg/dL Normal [facility] Urine hemoglobin detection b y automated test stripOrdered By: Kadie Jones on 02-14-2024 Hemoglobin Auto test strip Ql (U) Trace Negative [facility] Urine leukocyte esterase det ection by automated test stripOrdered By: Kadie Jones on 02-14-2024 Leukocyte esterase Auto test strip Ql (U) 3+ Negative [facility] Urine pH measurement by auto mated test stripOrdered By: Kadie Jones on 02-14-2024 pH (U) 5.5 [pH] Normal 5.0-9.0 [facility] Comment on above: Order Comment: Name Collection Type:: Straight Catheter Performed By: #### E SR, CBC, CMP, BNP #### [facility] [address] Urine protein measurement by automated test strip (mass/volume)Ordered By: Kadie Jones on 02-14-2024 Protein (U) [Mass/Vol] 30 mg/dL High Negative [facility] Comment on above: Order Comment: Name Collection Type:: Straight Catheter Performed By: #### E SR, CBC, CMP, BNP #### [facility] [address] Urobilinogen Auto test strip (U) [Mass/Vol]Ordered By: Kadie Jones on 02-14-2024 Urobilinogen (U) [Mass/Vol] Normal mg/dL Normal [facility] XR chest 1V portableon 02-13 XR chest 1V portable [facility] Main [place] [address] [place] [address] XRay Report Signed Patient: Gera Perdue MR#: [id number] : 1945 Acct:[id number] Age/Sex: 78 / F ADM Date: 02/14/24 Loc: ER Room: Type: [facility] ER Attending Dr: Copies to: CHIP [...] Bhavesh Avendaño M.D.02/14/2024 12:59 PM Dictation Location: [place] [address] Transcribed By: [facility] 02/14/24 1259 Dictated By: Bhavesh Avendaño II, MD 02/14/24 1257 Signed By: 02/14/24 1259 Normal [facility] C Urineon 02-01-2024 Bacteria identified Cx Nom (U) Microbiology PROCEDURE: Urine Culture [R1] SOURCE: U Random BODY SITE: COLLECTED DATE/TIME: 01/30/2024 14:39 EDT RECEIVED DATE/TIME: 01/30/2024 19:21 EDT START DATE/TIME: 01/30/2024 19:21 EDT FREE TEXT SOURCE: CHIP Ponce APRN, CHIP Ponce APRN, Renae X Renae X FINAL REPORTS Final Report [] Verified Date/Time: 02/01/2024 09:31 EDT <10,000 cfu/ml Mixed skin contaminants Mixed kimberly (multiple species present) Performing Locations R1: This test was performed at: [facility], [address] [place] [address], [facility]- , , [facility] Comment on above: Performed By: #### 2 [id number] #### [facility] [address] [place] [address] [employer] 01-31-2024 Forms [id number] Normal [facility] Physician Referralon 024 Physician Referral [id number]#[id number] [facility] Ambulatory Visit Summaryon 0 01-30-2024 Ambulatory Visit Summary GERA PERDUE :1945 Visit Date:01/30/2024 Ambulatory Visit Instructions Your Diagnosis Chronic kidney disease (CKD), stage III (moderate) Female incontinence Your Care Team Attending Physician - Orzech CREPE MAKER, TABLE LEVER OPERATOR-C, Renae X Primary Care Physician - GUSTAVO SALAS DO Referring Physician - GUSTAVO SALAS DO This Is Your Medications List Misc Prescription (Metoprolol Succinate Er 24hr 50 [...] Atherosclerosis of aorta Atherosclerotic heart disease of [place] coronary artery without angina pectoris Carotid stenosis [...] you for choosing us for your care. Antoine [facility] Patient Educationon 01-30-20 Patient Education Obstetrics and [...] this condition includes: ? Antibiotic medicine. ? Qgur-gfg-drbxxfx medicines to treat discomfort. ? Drinking enough [...] these instructions at home: Medicines ? Take yjoh-tqf-zqtfich and prescription medicines only as told by [...] Document Revie (more content not included)... 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 Salas for incontinence. Micro UA done 12/30/23. She states she thought she seen Dr. Croft before (nothing on [employer]) she just knows it was a long time ago Started at [facility] September with UTI and was transferred to [facility] in October is when they told her [...] with voice recognition artificial intelligence software, specifically Help.com, Botanical Tans and or WeVue. Substitutions may have occurred due to the [...] otherwise by our office. Rx sent to [facility] in [place]. - Start antibiotics today - Send urine for culture Ordered: cephalexin, 500 mg = 1 cap(s), Oral, q12hr, X 7 day(s), # 14 cap(s), Refills(s) 0, Pharmacy: [id number], 170, cm, 01/30/24 13:39:00 EDT, [...] reevaluate after procedure Ordered: Urine Culture Orders: [id number] Measure Post Void residual urine and/or bladder capacity by US- non-imaging Urnls Dip Stick Auto w/o Microscopy POC 93111 Urnls Dip Stick Auto w/o Microscopy POC 38395 Follow-up With When Contact Information CHIP Ponce APRN, Renae Delaney, FAM, URL Additional Instruction (more content not included)... Normal [facility] Comment on above: Result Comment: Elec tronically Signed By: CHIP Ponce APRN, [place] X\.br\Date and Time Signed: 01/30/24 14:52 EDT TRANSTHORACIC ECHO (TTE) COM PLETEon 01-27-2024 TRANSTHORACIC ECHO (TTE) COMPLETE [address], [address] [place] [address] TRANSTHORACIC ECHOCARDIOGRAM REPORT Patient Name: GERA Durham IRON Hernandez Physician: [id number] Seth Barnes MD, [facility] Study Date: 01/27/2024 Ordering Provider: [id number] JENNA ENGLE MRN/PID: [id number] Fellow: Nurse: Date of /Age: 1 1945 / 78 years Cyber Systems Operations Specialist: Inessa Roche RDCS, T Gender: F Additional Staff: Height: 162.56 cm Admit Date: Weight: 87.09 kg Admission Status: BSA / BMI: 1.92 m2 / 32.96 kg/m2 Department Location: [facility] Blood Pressure: 126 /78 mmHg Study Type: TRANSTHORACIC ECHO (TTE) COMPLETE Diagnosis/ICD: Shortness of breath-R06.02 Indication: History of PEA-09/2023, CAD, PTCA-04/2019, COPD, HTN, Hyperlipidemia, Tobacco Abuse, Hypoxemia, Sid, CKD-Stage III, Anemia CPT Codes: Echo Complete w Full Doppler-[id number] Study Detail: The following Echo studies were [...] 1.1 m/s (0.6-0.9m/s) PV Max P.5 mmHg [id number] Seth Barnes MD, [facility] Electronically signed on 01/29/2024 at 7:26:59 PM Final Normal [facility] Alanine aminotransferase [En zymatic activity/volume] in Serum or PlasmaOrdered By: Jenna Engle on 01-06-2024 ALT [Catalytic activity/Vol] 19 U/L Normal 7-52 [facility] Comment on above: Performed By: #### E SR, CBC, CMP, BNP #### [address] Albumin [Mass/volume] in Ser um or Plasma by Bromocresol green (BCG) dye binding methoOrdered By: Jenna Engle on 01-06-2024 Albumin BCG dye [Mass/Vol] 3.9 g/dL 3.5-5.7 [facility] Alkaline phosphatase [Enzyma tic activity/volume] in Serum or PlasmaOrdered By: Jenna Engle on 01-06-2024 ALP [Catalytic activity/Vol] 66 U/L Normal 34-104 [facility] Comment on above: Result Comment: PERF ORMED BY: [place] [address] PATHOLOGIST CUB REPORTER JORGE MURRELL M.D. Performed By: #### E SR, CBC, CMP, BNP #### [address] Aspartate aminotransferase [ Enzymatic activity/volume] in Serum or PlasmaOrdered By: Jenna Engle on 01-06-2024 AST [Catalytic activity/Vol] 22 U/L Normal 13-39 [facility] Comment on above: Performed By: #### E SR, CBC, CMP, BNP #### [address] Automated basophil %Ordered By: Jenna Engle on 01-06-2024 Basophils/100 WBC (Bld) 0.4 % Normal . [facility] Comment on above: Performed By: #### E SR, CBC, CMP, BNP #### [address] Automated basophil countOrde red By: Jenna Engle on 01-06-2024 Basophils (Bld) [#/Vol] 0.1 10*3/uL Normal 0.0-0.2 [facility] Comment on above: Performed By: #### E SR, CBC, CMP, BNP #### [address] Automated blood monocyte cou ntOrdered By: Jenna Engle on 01-06-2024 Monocytes (Bld) [#/Vol] 1.2 10*3/uL High 0.0-0.8 [facility] Comment on above: Performed By: #### E SR, CBC, CMP, BNP #### [address] Automated eosinophil %Ordere d By: Jenna Engle on 01-06-2024 Eosinophils/100 WBC (Bld) 0.9 % Normal . [facility] Comment on above: Performed By: #### E SR, CBC, CMP, BNP #### [address] Automated eosinophil countOr dered By: Jenna Engle on 01-06-2024 Eosinophils (Bld) [#/Vol] 0.1 10*3/uL Normal 0.0-0.45 [facility] Comment on above: Performed By: #### E SR, CBC, CMP, BNP #### [address] Automated monocyte %Ordered By: Jenna Engle on 01-06-2024 Monocytes/100 WBC (Bld) 8.7 % Normal . [facility] Comment on above: Performed By: #### E SR, CBC, CMP, BNP #### [address] Automated neutrophil %Ordere d By: Jenna Engle on 01-06-2024 Neutrophils/100 WBC (Bld) 59.8 % Normal . [facility] Comment on above: Performed By: #### E SR, CBC, CMP, BNP #### [address] BNP ser/plasOrdered By: Gisel Engle on 01-06-2024 Natriuretic peptide B (Bld) [Mass/Vol] 358.0 pg/mL High 5-100 [facility] Comment on above: Result Comment: PERF ORMED BY: [place] [address] PATHOLOGIST CUB REPORTER JORGE MURRELL M.D. Performed By: #### E SR, CBC, CMP, BNP #### [address] Bilirubin.total [Mass/volume ] in Serum or PlasmaOrdered By: Jenna Engle on 01-06-2024 Bilirubin [Mass/Vol] 0.3 mg/dL Normal 0.3-1.0 [facility] Comment on above: Performed By: #### E SR, CBC, CMP, BNP #### [facility] [address] [place] [address] Calcium [Mass/volume] in Ser um or PlasmaOrdered By: Jenna Engle on 01-06-2024 Calcium [Mass/Vol] 9.5 mg/dL Normal 8.6-10.3 [facility] Comment on above: Performed By: #### E SR, CBC, CMP, BNP #### [address] Carbon dioxide, total [Moles /volume] in Serum or PlasmaOrdered By: Jenna Engle on 01-06-2024 CO2 [Moles/Vol] 31.7 mmol/L High 21.0-31.0 [facility] Comment on above: Performed By: #### E SR, CBC, CMP, BNP #### [address] Chloride [Moles/volume] in S kaveh or PlasmaOrdered By: Jenna Engle on 01-06-2024 Chloride [Moles/Vol] 108 mmol/L High 98-107 [facility] Comment on above: Performed By: #### E SR, CBC, CMP, BNP #### [address] Complete Blood Count Auto Di ffon 01-06-2024 Mean Corpuscular HGB Conc 31.6 g/dL Low 32.0-35.0 [facility] Comment on above: Performed By: #### E SR, CBC, CMP, BNP #### [address] NRBC% 0.0 /100{WBC} Normal 0-0.5 [facility] Comment on above: Performed By: #### E SR, CBC, CMP, BNP #### [address] Comprehensive Metabolic Pane harsha 01-06-2024 Albumin [Mass/Vol] 3.9 g/dL Normal 3.5-5.7 [facility] Comment on above: Performed By: #### E SR, CBC, CMP, BNP #### [address] GFR/1.73 sq M.predicted MDRD (S/P/Bld) [Vol rate/Area] 47.277 mL/min/{1.73_m2} Normal [facility] Comment on above: Performed By: #### E SR, CBC, CMP, BNP #### [address] Creatinine [Mass/volume] in Serum or PlasmaOrdered By: Jenna Engle on 01-06-2024 Creatinine [Mass/Vol] 1.18 mg/dL Normal 0.60-1.20 [facility] Comment on above: Performed By: #### E SR, CBC, CMP, BNP #### [address] ECG 12 Leadon 01-06-2024 [facility] Work Phone: Normal sinus rhythm at 62 bpm AR interval 170 ms QRS duration 80 ms QTc 401 ms. [facility] Work Phone: [facility] Work Phone: Erythrocyte Sedimentation Ra jami 01-06-2024 ESR (Bld) [Velocity] 34 mm/h High 0-29 [facility] Comment on above: Result Comment: PERF ORMED BY: [place] [address] PATHOLOGIST CUB REPORTER JORGE MURRELL M.D. Performed By: #### E SR, CBC, CMP, BNP #### [address] Erythrocyte distribution wid th [Ratio] by Automated countOrdered By: Jenna Engle on 01-06-2024 Erythrocyte distribution width (RBC) [Ratio] 20.0 % High 11.9-15.3 [facility] Comment on above: Performed By: #### E SR, CBC, CMP, BNP #### [address] Erythrocyte sedimentation ra te by Photometric methodOrdered By: Jenna Engle on 01-06-2024 ESR Photometric method (Bld) [Velocity] 34 mm/hr 0-29 [facility] Erythrocytes [#/volume] in B lood by Automated countOrdered By: Jenna Engle on 01-06-2024 RBC (Bld) [#/Vol] 4.54 10*6/uL Normal 3.60-5.00 [facility] Comment on above: Performed By: #### E SR, CBC, CMP, BNP #### [facility] [address] Glucose [Mass/volume] in Ser um or PlasmaOrdered By: Jenna Engle on 01-06-2024 Glucose [Mass/Vol] 85 mg/dL Normal 70-100 [facility] Comment on above: ADA recommended refe rence rangeRandom Glucose Reference Range is dependent on time and content of last meal. Glucose of more than 200 mg/dL in a nonstressed, ambulatory subject supports the diagnosis of Diabetes Mellitus. Result Comment: [place] Glucose Reference Range is dependent on time and content of last meal. Glucose of more than 200 mg/dL in a nonstressed, ambulatory subject supports the diagnosis of Diabetes Mellitus. ADA recommended reference range Performed By: #### E SR, CBC, CMP, BNP #### [facility] [address] Hematocrit [Volume Fraction] of Blood by Automated countOrdered By: Jenna Engle on 01-06-2024 Hematocrit (Bld) [Volume fraction] 35.7 % Normal 34.0-46.4 [facility] Comment on above: Performed By: #### E SR, CBC, CMP, BNP #### [facility] [address] Hemoglobin [Mass/volume] in BloodOrdered By: Jenna Engle on 01-06-2024 Hemoglobin (Bld) [Mass/Vol] 11.3 g/dL Low 11.8-15.4 [facility] Comment on above: Performed By: #### E SR, CBC, CMP, BNP #### [facility] [address] [place] [address] [place] Leukocytes [#/volume] correc juma for nucleated erythrocytes in Blood by Automated counOrdered By: Jenna Engle on 01-06-2024 WBC corrected for nucl RBC Auto (Bld) [#/Vol] 14.2 10*3/uL 3.8-11.6 [facility] Leukocytes [#/volume] in Blo od by Automated countOrdered By: Jenna Engle on 01-06-2024 WBC (Bld) [#/Vol] 14.2 10*3/uL High 3.8-11.6 [facility] Comment on above: Performed By: #### E SR, CBC, CMP, BNP #### [facility] [address] [place] [address] [place] Lymphocytes [#/volume] in Bl ood by Automated countOrdered By: Jenna Engle on 01-06-2024 Lymphocytes (Bld) [#/Vol] 4.3 10*3/uL Normal 1.00-4.8 [facility] Comment on above: Performed By: #### E SR, CBC, CMP, BNP #### [facility] [address] [place] [address] [place] Lymphocytes/100 leukocytes i n Blood by Automated countOrdered By: Jenna Engle on 01-06-2024 Lymphocytes/100 WBC (Bld) 30.2 % Normal . [facility] Comment on above: Performed By: #### E SR, CBC, CMP, BNP #### [facility] [address] [place] [address] MCH [Entitic mass] by Automa juma countOrdered By: Jenna Engle on 01-06-2024 MCH (RBC) [Entitic mass] 24.9 pg Normal 24.7-34.3 [facility] Comment on above: Performed By: #### E SR, CBC, CMP, BNP #### [facility] [address] [place] [address] [place] MCHC Auto (RBC) [Mass/Vol]Or dered By: Jenna Engle on 01-06-2024 MCHC (RBC) [Mass/Vol] 31.6 g/dL 32.0-35.0 [facility] MCV [Entitic volume] by Auto mated countOrdered By: Jenna Engle on 01-06-2024 MCV (RBC) [Entitic vol] 78.7 fL Low 80-100 [facility] Comment on above: Performed By: #### E SR, CBC, CMP, BNP #### [facility] [address] [place] [address] Neutrophils [#/volume] in Bl ood by Automated countOrdered By: Jenna Engle on 01-06-2024 Neutrophils (Bld) [#/Vol] 8.5 10*3/uL High 1.8-7.7 [facility] Comment on above: Performed By: #### E SR, CBC, CMP, BNP #### [facility] [address] [place] [address] No Panel InformationOrdered By: Jenna Engle on 01-06-2024 Estimated GFR (CKD-EPI) 47.277 mL/Min [facility] Creatinine Clearance (Chem N/A [facility] Nucleated erythrocytes [Pres ence] in Blood by Automated countOrdered By: Jenna Engle on 01-06-2024 Nucleated RBC Auto Ql (Bld) 0.0 /100{WBC} 0-0.5 [facility] Platelet mean volume [Entiti c volume] in Blood by Automated countOrdered By: Jenna Engle on 01-06-2024 Platelet mean volume (Bld) [Entitic vol] 7.2 fL Normal 6.3-10.7 [facility] Comment on above: Performed By: #### E SR, CBC, CMP, BNP #### [facility] [address] [place] [address] Platelets [#/volume] in Bloo d by Automated countOrdered By: Jenna Engle on 01-06-2024 Platelets (Bld) [#/Vol] 330 10*3/uL Normal 150-450 [facility] Comment on above: Performed By: #### E SR, CBC, CMP, BNP #### [facility] [address] [place] [address] Potassium [Moles/volume] in Serum or PlasmaOrdered By: Jenna Engle on 01-06-2024 Potassium [Moles/Vol] 4.5 mmol/L Normal 3.5-5.1 [facility] Comment on above: Performed By: #### E SR, CBC, CMP, BNP #### [facility] [address] [place] [address] Protein [Mass/volume] in Ser um or PlasmaOrdered By: Jenna Engle on 01-06-2024 Protein [Mass/Vol] 7.1 g/dL Normal 6.4-8.9 [facility] Comment on above: Performed By: #### E SR, CBC, CMP, BNP #### [facility] [address] [place] [address] Serum globulin measurement b y calculation (mass/volume)Ordered By: Jenan Engle on 01-06-2024 Globulin (S) [Mass/Vol] 3.2 g/dL [facility] Comment on above: Performed By: #### E SR, CBC, CMP, BNP #### [facility] [address] [place] [address] Serum or plasma albumin/glob ulin mass ratioOrdered By: Jenna Engle on 01-06-2024 Albumin/Globulin [Mass ratio] 1.2 {ratio} [facility] Comment on above: Performed By: #### E SR, CBC, CMP, BNP #### [facility] [address] [place] [address] Serum or plasma anion gap de terminationOrdered By: Jenna Engle on 01-06-2024 Anion gap [Moles/Vol] 8.8 mmol/L Normal 6.0-15.0 [facility] Comment on above: Performed By: #### E SR, CBC, CMP, BNP #### [facility] [address] [place] [address] [place] Sodium [Moles/volume] in Ser um or PlasmaOrdered By: Jenna Engle on 01-06-2024 Sodium [Moles/Vol] 144 mmol/L Normal 136-145 [facility] Comment on above: Performed By: #### E SR, CBC, CMP, BNP #### [address] [place] [address] [facility] Urea nitrogen [Mass/volume] in Serum or PlasmaOrdered By: Jenna Engle on 01-06-2024 Urea nitrogen [Mass/Vol] 31 mg/dL High 7 [facility] Comment on above: Performed By: #### E SR, CBC, CMP, BNP #### [facility] [address] [place] [id number] [facility] XR chest 2V*on 01-06-2024 XR chest 2V* [facility] [address] [place] [address] [place] [id number] XRay Report Signed Patient: Gera Perdue MR#: [id number] : 1945 Acct:[id number] Age/Sex: 78 / F ADM Date: 01/06/24 Loc: XD Room: Type: [facility] Attending Dr: Jenna Engle MD Copies to: [...] Palma Jr., D.O.01/06/2024 4:08 PM Dictation Location: [place] [address] Transcribed By: [facility] 01/06/24 1608 Dictated By: Rodriguez Palma Jr, DO 01/06/24 1608 Signed By: 01/06/24 1608 Normal [facility] BASIC METABOLIC PANLon 10-23 Anion gap [Moles/Vol] 9 mmol/L Normal 5-15 [facility] Comment on above: Performed By: #### [place], [address]-9, 2777-1 #### [facility] ([id number]) [address] [place] [address] Calcium [Mass/Vol] 9.1 mg/dL Normal 8.5-10.5 [facility] Comment on above: Performed By: #### C SANTOSH [place]ILLIG[place], , 2776-10 #### [facility] ([id number]) [address], [address] [place] [address] Chloride [Moles/Vol] 102 mmol/L Normal 98-109 [facility] Comment on above: Performed By: #### SANTOSH SALEEM, , 2776-10 #### [facility] ([id number]) [address], [address] [place] [address] CO2 [Moles/Vol] 26 mmol/L Normal 22-32 [facility] Comment on above: Performed By: #### SANTOSH SALEEM, , 2776-10 #### [facility] ([id number]) [address], [address] [place] [address] Creatinine [Mass/Vol] 1.08 mg/dL High 0.40-1.00 [facility] Comment on above: Result Comment: METH OD TRACEABLE TO IDMS STANDARD Performed By: #### SANTOSH SALEEM, , 2776-10 #### [facility] ([id number]) [address], [address] [place] [address] GFR/1.73 sq M.predicted among non-blacks MDRD (S/P/Bld) [Vol rate/Area] 53 mL/min/{1.73_m2} Low >59 [facility] Comment on above: Result Comment: Reported eGFR is based on the CKD-EPI 2020 equation that does not use a race coefficient. Performed By: #### SANTOSH SALEEM, , 2776-10 #### [facility] ([id number]) [address], [address] [place] [address] Glucose [Mass/Vol] 96 mg/dL Normal 65-99 [facility] Comment on above: Performed By: #### C SRINI, [facility], , 2776-10 #### [facility] ([id number]) [address], [address] [place] [address] Potassium [Moles/Vol] 4.4 mmol/L Normal 3.5-5.0 [facility] Comment on above: Performed By: #### C SRINI, [facility], , 2776-10 #### [facility] ([id number]) [address], [address] [place] [address] Sodium [Moles/Vol] 137 mmol/L Normal 134-146 [facility] Comment on above: Performed By: #### C SRINI, [facility], , 2776-10 #### [facility] ([id number]) [address], [address] [place] [address] Urea nitrogen [Mass/Vol] 13 mg/dL Normal 5-27 [facility] Comment on above: Performed By: #### C SRINI, [facility], , 2776-10 #### [facility] ([id number]) [address], [address] [place] [address] COMPLETE BLOOD COUNTon 10-23 Erythrocyte distribution width (RBC) [Ratio] 21.6 % High 11.5-15.0 [facility] Comment on above: Performed By: #### C SRINI, [facility], , 2776-10 #### [facility] ([id number]) [address], [address] [place] [address] Hematocrit (Bld) [Volume fraction] 25.8 % Low 35-47 [facility] Comment on above: Performed By: #### Timmy MILLIGAN, BMP, , 2776-10 #### [facility] ([id number]) [address], [address] [place] [address] Hemoglobin (Bld) [Mass/Vol] 8.5 g/dL Low 11.7-15.5 [facility] Comment on above: Performed By: #### SANTOSH SALEEM, , 2776-10 #### [facility] ([id number]) [address], [address] [place] [address] MCH (RBC) [Entitic mass] 26.1 pg Low 27-34 [facility] Comment on above: Performed By: #### SANTOSH SALEEM, , 2776-10 #### [facility] ([id number]) [address], [address] [place] [address] MCHC (RBC) [Mass/Vol] 32.9 g/dL Normal 32-36 [facility] Comment on above: Performed By: #### SANTOSH SALEEM, , 2776-10 #### [facility] ([id number]) [address], [address] [place] [address] MCV (RBC) [Entitic vol] 79 fL Low 80-100 [facility] Comment on above: Performed By: #### SANTOSH SALEEM, , 2776-10 #### [facility] ([id number]) [address], [address] [place] [address] Platelet mean volume (Bld) [Entitic vol] 6.7 fL Low 7-12 [facility] Comment on above: Performed By: #### SANTOSH SALEEM, , 2776-10 #### [facility] ([id number]) [address], [address] [place] [address] Platelets (Bld) [#/Vol] 551 10*3/uL High 150-450 [facility] Comment on above: Performed By: #### SANTOSH SALEEM, , 2776-10 #### [facility] ([id number]) [address], [address] [place] [address] RBC COUNT 3.26 X10E12/L Low 3.80-5.20 [facility] Comment on above: Performed By: #### SANTOSH SALEEM, , 2776-10 #### [facility] ([id number]) [address], [address] [place] [address] WBC (Bld) [#/Vol] 10.1 10*3/uL Normal 4.0-11.0 [facility] Comment on above: Performed By: #### SANTOSH SALEEM, , 2776-10 #### [facility] ([id number]) [address], [address] [place] [address] Calcium.ionized (Bld) [Mass/ Vol]on 10-23-2023 IONIZED CALCIUM 4.9 mg/dL Normal 4.5-5.3 [facility] Comment on above: Performed By: #### SANTOSH SALEEM, , 2776-10 #### [facility] ([id number]) [address], [address] [place] [address] MAGNESIUMon 10-23-2023 Magnesium [Mass/Vol] 1.7 mg/dL Low 1.8-2.6 [facility] Comment on above: Performed By: #### SANTOSH SALEEM, , 2776-10 #### [facility] ([id number]) [address], [address] [place] [address] PHOSPHORUSon 10-23-2023 Phosphate [Mass/Vol] 5.1 mg/dL High 2.4-4.9 [facility] Comment on above: Performed By: #### SANTOSH SALEEM, , 2776-10 #### [facility] ([id number]) [address], [address] [place] [address] Rheumatoid factor Nephelomet ry Qn (S)on 10-23-2023 RHEUMATOID FACTOR <10 Normal <20 [facility] Comment on above: Performed By: #### C SRINI, BMP, , 2776-10 #### [facility] ([id number]) [address], [address] [place] [address] BASIC METABOLIC PANLon 10-22 Anion gap [Moles/Vol] 10 mmol/L Normal 5-15 [facility] Comment on above: Performed By: #### Timmy MILLIGAN, BMP, , 2776-10 #### [facility] ([id number]) [address], [address] [place] [address] Calcium [Mass/Vol] 8.8 mg/dL Normal 8.5-10.5 [facility] Comment on above: Performed By: #### Timmy MILLIGAN, BMP, , 2776-10 #### [facility] ([id number]) [address], [address] [place] [address] Chloride [Moles/Vol] 104 mmol/L Normal 98-109 [facility] Comment on above: Performed By: #### Timmy MILLIGAN, BMP, , 2776-10 #### [facility] ([id number]) [address], [address] [place] [address] CO2 [Moles/Vol] 25 mmol/L Normal 22-32 [facility] Comment on above: Performed By: #### Timmy MILLIGAN, BMP, , 2776-10 #### [facility] ([id number]) [address], [address] [place] [address] Creatinine [Mass/Vol] 1.02 mg/dL High 0.40-1.00 [facility] Comment on above: Result Comment: METH OD TRACEABLE TO IDMS STANDARD Performed By: #### C SRINI, BMP, , 2776-10 #### [facility] ([id number]) [address], [address] [place] [address] GFR/1.73 sq M.predicted among non-blacks MDRD (S/P/Bld) [Vol rate/Area] 57 mL/min/{1.73_m2} Low >59 [facility] Comment on above: Result Comment: Reported eGFR is based on the CKD-EPI 2020 equation that does not use a race coefficient. Performed By: #### C SANTOSH MILLIGAN, , 2776-10 #### [facility] ([id number]) [address], [address] [place] [address] Glucose [Mass/Vol] 86 mg/dL Normal 65-99 [facility] Comment on above: Performed By: #### Timmy MILLIGAN [facility], , 2776-10 #### [facility] ([id number]) [address], [address] [place] [address] Potassium [Moles/Vol] 4.6 mmol/L Normal 3.5-5.0 [facility] Comment on above: Performed By: #### Timmy MILLIGAN [facility], , 2776-10 #### [facility] ([id number]) [address], [address] [place] [address] Sodium [Moles/Vol] 139 mmol/L Normal 134-146 [facility] Comment on above: Performed By: #### SANTOSH SALEEM, , 2776-10 #### [facility] ([id number]) [address], [address] [place] [address] Urea nitrogen [Mass/Vol] 13 mg/dL Normal 5-27 [facility] Comment on above: Performed By: #### SANTOSH SALEEM, , 2776-10 #### [facility] ([id number]) [address] [facility] [address] [place] [address] COMPLETE BLOOD COUNTon 10-22 Erythrocyte distribution width (RBC) [Ratio] 22.2 % High 11.5-15.0 [facility] Comment on above: Performed By: #### Timmy MILLIGAN [facility], , 2776-10 #### [facility] ([id number]) [address], [address] [place] [address] Hematocrit (Bld) [Volume fraction] 25.7 % Low 35-47 [facility] Comment on above: Performed By: #### C SRINI, [facility], , 2776-10 #### [facility] ([id number]) [address], [address] [place] [address] Hemoglobin (Bld) [Mass/Vol] 8.2 g/dL Low 11.7-15.5 [facility] Comment on above: Performed By: #### Timmy MILLIGAN, [facility], , 2776-10 #### [facility] ([id number]) [address], [address] [place] [address] MCH (RBC) [Entitic mass] 26.2 pg Low 27-34 [facility] Comment on above: Performed By: #### Timmy MILLIGAN [facility], , 2776-10 #### [facility] ([id number]) [address], [address] [place] [address] MCHC (RBC) [Mass/Vol] 32.1 g/dL Normal 32-36 [facility] Comment on above: Performed By: #### Timmy MILLIGAN [facility], , 2776-10 #### [facility] ([id number]) [address], [address] [place] [address] MCV (RBC) [Entitic vol] 82 fL Normal 80-100 [facility] Comment on above: Performed By: #### Timmy MILLIGAN, [facility], , 2776-10 #### [facility] ([id number]) [address], [address] [place] [address] Platelet mean volume (Bld) [Entitic vol] 6.7 fL Low 7-12 [facility] Comment on above: Performed By: #### Timmy MILLIGAN, SANTOSH, , 2776-10 #### [facility] ([id number]) [address], [address] [place] [address] Platelets (Bld) [#/Vol] 533 10*3/uL High 150-450 [facility] Comment on above: Performed By: #### Timmy MILLIGAN, SANTOSH, , 2776-10 #### [facility] ([id number]) [address], [address] [place] [address] RBC COUNT 3.14 X10E12/L Low 3.80-5.20 [facility] Comment on above: Performed By: #### SANTOSH SALEEM, , 2776-10 #### [facility] ([id number]) [address], [address] [place] [address] WBC (Bld) [#/Vol] 9.7 10*3/uL Normal 4.0-11.0 [facility] Comment on above: Performed By: #### Timmy MILLIGAN, SANTOSH, , 2776-10 #### [facility] ([id number]) [address], [address] [place] [address] Calcium.ionized (Bld) [Mass/ Vol]on 10-22-2023 IONIZED CALCIUM 4.9 mg/dL Normal 4.5-5.3 [facility] Comment on above: Performed By: #### Timmy MILLIGAN, SANTOSH, , 2776-10 #### [facility] ([id number]) [address], [address] [place] [address] Glucose Glucometer (BldC) [M ass/Vol]on 10-22-2023 Glucose [Mass/Vol] 97 mg/dL Normal 65-99 [facility] MAGNESIUMon 10-22-2023 Magnesium [Mass/Vol] 2.1 mg/dL Normal 1.8-2.6 [facility] Comment on above: Performed By: #### Timmy MILLIGAN, BMP, , 2776-10 #### [facility] ([id number]) [address], [address] [place] [address] PHOSPHORUSon 10-22-2023 Phosphate [Mass/Vol] 4.9 mg/dL Normal 2.4-4.9 [facility] Comment on above: Performed By: #### Timmy MILLIGAN, BMP, , 2776-10 #### [facility] ([id number]) [address], [address] [place] [address] BASIC METABOLIC PANLon 10-21 Anion gap [Moles/Vol] 7 mmol/L Normal 5-15 [facility] Comment on above: Performed By: #### Timmy MILLIGAN, BMP, , 2776-10 ####[facility] ([id number])[address], [place] [address] Calcium [Mass/Vol] 9.0 mg/dL Normal 8.5-10.5 [facility] Comment on above: Performed By: #### Timmy MILLIGAN, BMP, , 2776-10 ####[facility] ([id number])[address], [address], [place] [address] Chloride [Moles/Vol] 104 mmol/L Normal 98-109 [facility] Comment on above: Performed By: #### Timmy MILLIGAN, BMP, , 2776-10 ####[facility] ([id number])[address], [address], [place] [address] CO2 [Moles/Vol] 26 mmol/L Normal 22-32 [facility] Comment on above: Performed By: #### Timmy MILLIGAN, BMP, , 2776-10 ####[facility] ([id number])[address], [place] [address] Creatinine [Mass/Vol] 1.06 mg/dL High 0.40-1.00 [facility] Comment on above: Result Comment: METH OD TRACEABLE TO IDMS STANDARD Performed By: #### C SANTOSH MILLIGAN, , 2776-10 ####[facility] ([id number])[address], [address] [address] GFR/1.73 sq M.predicted among non-blacks MDRD (S/P/Bld) [Vol rate/Area] 54 mL/min/{1.73_m2} Low >59 [facility] Comment on above: Result Comment: Reported eGFR is based on the CKD-EPI 2020 equation that does not use a race coefficient. Performed By: #### SANTOSH SALEEM, , 2776-10 ####[facility] ([id number])[address] [address] [address] Glucose [Mass/Vol] 88 mg/dL Normal 65-99 [facility] Comment on above: Performed By: #### SANTOSH SALEEM, , 2776-10 ####[facility] ([id number])[address] [address] [place] [address] Potassium [Moles/Vol] 4.5 mmol/L Normal 3.5-5.0 [facility] Comment on above: Performed By: #### SANTOSH SALEEM, , 2776-10 ####[facility] ([id number])[address] [address] [address] Sodium [Moles/Vol] 137 mmol/L Normal 134-146 [facility] Comment on above: Performed By: #### SANTOSH SALEEM, , 2776-10 ####[facility] ([id number])[address] [address] [address] Urea nitrogen [Mass/Vol] 12 mg/dL Normal 5-27 [facility] Comment on above: Performed By: #### C SRINI, [facility], , 2776-10 ####[facility] ([id number])[address], [address], [place] [address] COMPLETE BLOOD COUNTon 10-21 Erythrocyte distribution width (RBC) [Ratio] 22.0 % High 11.5-15.0 [facility] Comment on above: Performed By: #### C BC, [facility], , 2776-10 ####[facility] ([id number])[address] [address] Hematocrit (Bld) [Volume fraction] 26.3 % Low 35-47 [facility] Comment on above: Performed By: #### C SRINI, BMP, , 2776-10 ####[facility] ([id number])[address] [address] Hemoglobin (Bld) [Mass/Vol] 8.5 g/dL Low 11.7-15.5 [facility] Comment on above: Performed By: #### C SRINI, [facility], , 2776-10 ####[facility] ([id number])[address], [address], [place] [address] MCH (RBC) [Entitic mass] 26.2 pg Low 27-34 [facility] Comment on above: Performed By: #### C SRINI, BMP, , 2776-10 ####[facility] ([id number])[address] [place] [address] MCHC (RBC) [Mass/Vol] 32.4 g/dL Normal 32-36 [facility] Comment on above: Performed By: #### C BC, BMP, , 2776-10 ####[facility] ([id number])[address], [address], [place] [address] MCV (RBC) [Entitic vol] 81 fL Normal 80-100 [facility] Comment on above: Performed By: #### C SRINI, [facility], , 2776-10 ####[facility] ([id number])[address] [address] Platelet mean volume (Bld) [Entitic vol] 6.8 fL Low 7-12 [facility] Comment on above: Performed By: #### C SRINI, [facility], , 2776-10 ####[facility] ([id number])[address], [address] [address] Platelets (Bld) [#/Vol] 611 10*3/uL High 150-450 [facility] Comment on above: Performed By: #### Timmy MILLIGAN [facility], , 2776-10 ####[facility] ([id number])[address] [address] RBC COUNT 3.25 X10E12/L Low 3.80-5.20 [facility] Comment on above: Performed By: #### C SRINI, [facility], , 2776-10 ####[facility] ([id number])[address] [address] [address] WBC (Bld) [#/Vol] 10.0 10*3/uL Normal 4.0-11.0 [facility] Comment on above: Performed By: #### C SRINI, [facility], , 2776-10 ####[facility] ([id number])[address] [address] [address] CRP [Mass/Vol]on 10-21-2023 C REACTIVE PROTEIN 6.5 mg/dL High 0.000-0.7 4 4 [facility] Comment on above: Performed By: #### 3 8230-9 #### [facility] ([id number]) [address], [address] [place] [address] Calcium.ionized (Bld) [Mass/ Vol]on 10-21-2023 IONIZED CALCIUM 4.9 mg/dL Normal 4.5-5.3 [facility] Comment on above: Performed By: #### 3 8230-9 #### [facility] ([id number]) [address], [address] [place] [address] ESR Photometric method (Bld) [Velocity]on 10-21-2023 ESR, ERYTHROCYTE SEDIMENTATION RATE 74 mm/h High 0-30 [facility] Comment on above: Performed By: #### 3 8230-9 #### [facility] ([id number]) [address], [address] [place] [address] Glucose Glucometer (BldC) [M ass/Vol]on 10-21-2023 Glucose [Mass/Vol] 124 mg/dL High 65-99 [facility] Glucose [Mass/Vol] 135 mg/dL High 65-99 [facility] Glucose [Mass/Vol] 126 mg/dL High 65-99 [facility] Glucose [Mass/Vol] 91 mg/dL Normal 65-99 [facility] MAGNESIUMon 10-21-2023 Magnesium [Mass/Vol] 2.6 mg/dL Normal 1.8-2.6 [facility] Comment on above: Performed By: #### 3 8230-9 #### [facility] ([id number]) [address], [address] [place] [address] Magnesium [Mass/Vol] 1.9 mg/dL Normal 1.8-2.6 [facility] Comment on above: Performed By: #### C BC, BMP, 71070-3, 2777-1 ####[facility] ([id number])[address], [address] [place] [address] PHOSPHORUSon 10-21-2023 Phosphate [Mass/Vol] 4.3 mg/dL Normal 2.4-4.9 [facility] Comment on above: Performed By: #### 3 8230-9 #### [facility] ([id number]) [address], [address] [place] [address] XR WRIST LT MIN 3 VWSon 09-28 XR WRIST LT MIN 3 VWS XR [...] Morin MD on 10/21/2023 10:28 AM Normal [facility] BASIC METABOLIC PANLon 10-20 Anion gap [Moles/Vol] 7 mmol/L Normal 5-15 [facility] Comment on above: Performed By: #### C SRINI [facility], , 2776-10 ####[facility] ([id number])[address], [address] [place] [address] Calcium [Mass/Vol] 8.6 mg/dL Normal 8.5-10.5 [facility] Comment on above: Performed By: #### SANTOSH SALEEM, , 1 ####[facility] ([id number])[address], [address], [place] [address] Chloride [Moles/Vol] 107 mmol/L Normal 98-109 [facility] Comment on above: Performed By: #### C SRINI BMP, , 2776-10 ####[facility] ([id number])[address], [address] [address] CO2 [Moles/Vol] 25 mmol/L Normal 22-32 [facility] Comment on above: Performed By: #### C BC BMP, , 2776-10 ####[facility] ([id number])[address] [address], [place] [address] Creatinine [Mass/Vol] 1.16 mg/dL High 0.40-1.00 [facility] Comment on above: Result Comment: METH OD TRACEABLE TO IDMS STANDARD Performed By: #### C SANTOSH MILLIGAN, , 2776-10 ####[facility] ([id number])[address] [address] [address] GFR/1.73 sq M.predicted among non-blacks MDRD (S/P/Bld) [Vol rate/Area] 49 mL/min/{1.73_m2} Low >59 [facility] Comment on above: Result Comment: Reported eGFR is based on the CKD-EPI 2020 equation that does not use a race coefficient. Performed By: #### C SANTOSH MILLIGAN, , 2776-10 ####[facility] ([id number])[address] [address] [address] Glucose [Mass/Vol] 80 mg/dL Normal 65-99 [facility] Comment on above: Performed By: #### SANTOSH SALEEM, , 2776-10 ####[facility] ([id number])[address] [address] [place] [address] Potassium [Moles/Vol] 4.6 mmol/L Normal 3.5-5.0 [facility] Comment on above: Performed By: #### C SANTOSH MILLIGAN, , 2776-10 ####[facility] ([id number])[address] [address] [place] [address] Sodium [Moles/Vol] 139 mmol/L Normal 134-146 [facility] Comment on above: Performed By: #### Timmy MILLIGAN, SANOTSH, , 2776-10 ####[facility] ([id number])[address] [address], [place] [address] Urea nitrogen [Mass/Vol] 12 mg/dL Normal 5-27 [facility] Comment on above: Performed By: #### C BC, BMP, , 2776-10 ####[facility] ([id number])[address], [address] [place] [address] COMPLETE BLOOD COUNTon 10-20 Erythrocyte distribution width (RBC) [Ratio] 22.5 % High 11.5-15.0 [facility] Comment on above: Performed By: #### C SRINI, BMP, , 2776-10 ####[facility] ([id number])[address], [address] [place] [address] Hematocrit (Bld) [Volume fraction] 24.8 % Low 35-47 [facility] Comment on above: Performed By: #### Timmy MILLIGAN, BMP, , 2776-10 ####[facility] ([id number])[address] [address], [place] [address] Hemoglobin (Bld) [Mass/Vol] 8.1 g/dL Low 11.7-15.5 [facility] Comment on above: Performed By: #### Timmy MILLIGAN, BMP, , 2776-10 ####[facility] ([id number])[address], [address] [place] [address] MCH (RBC) [Entitic mass] 26.2 pg Low 27-34 [facility] Comment on above: Performed By: #### C BC, BMP, , 2776-10 ####[facility] ([id number])[address], [address] [place] [address], [place] [address] MCHC (RBC) [Mass/Vol] 32.4 g/dL Normal 32-36 [facility] Comment on above: Performed By: #### Timmy BC, BMP, , 2776-10 ####[facility] ([id number])[address], [address] [address] MCV (RBC) [Entitic vol] 81 fL Normal 80-100 [facility] Comment on above: Performed By: #### SANTOSH SALEEM, , 2776-10 ####[facility] ([id number])[address], [address], [place] [address] Platelet mean volume (Bld) [Entitic vol] 6.7 fL Low 7-12 [facility] Comment on above: Performed By: #### SANTOSH SALEEM, , 2776-10 ####[facility] ([id number])[address], [place] [address] Platelets (Bld) [#/Vol] 554 10*3/uL High 150-450 [facility] Comment on above: Performed By: #### SANTOSH SALEEM, , 2776-10 ####[facility] ([id number])[address] [address] [address] RBC COUNT 3.08 X10E12/L Low 3.80-5.20 [facility] Comment on above: Performed By: #### SANTOSH SALEEM, , 2776-10 ####[facility] ([id number])[address] [address] [place] [address] WBC (Bld) [#/Vol] 9.3 10*3/uL Normal 4.0-11.0 [facility] Comment on above: Performed By: #### SANTOSH SALEEM, , 2776-10 ####[facility] ([id number])[address] [address] Glucose Glucometer (BldC) [M ass/Vol]on 10-20-2023 Glucose [Mass/Vol] 108 mg/dL High 65-99 [facility] Glucose [Mass/Vol] 115 mg/dL High 65-99 [facility] Glucose [Mass/Vol] 140 mg/dL High 65-99 [facility] Glucose [Mass/Vol] 94 mg/dL Normal 65-99 [facility] MAGNESIUMon 10-20-2023 Magnesium [Mass/Vol] 1.7 mg/dL Low 1.8-2.6 [facility] Comment on above: Performed By: #### SANTOSH SALEEM, , 2776-10 ####[facility] ([id number])[address] [address] PHOSPHORUSon 10-20-2023 Phosphate [Mass/Vol] 4.2 mg/dL Normal 2.4-4.9 [facility] Comment on above: Performed By: #### SANTSOH SALEEM, , 2776-10 ####[facility] ([id number])[address] [address] BASIC METABOLIC PANLon 10-19 Anion gap [Moles/Vol] 8 mmol/L Normal 5-15 [facility] Comment on above: Performed By: #### SANTOSH SALEEM, , 2776-10 ####[facility] ([id number])[address] [address] Calcium [Mass/Vol] 8.3 mg/dL Low 8.5-10.5 [facility] Comment on above: Performed By: #### SANTOSH SALEEM, , 2776-10 ####[facility] ([id number])[address] [address] Chloride [Moles/Vol] 107 mmol/L Normal 98-109 [facility] Comment on above: Performed By: #### SANTOSH SALEEM, , 2776-10 ####[facility] ([id number])[address] [address], [place] [address] CO2 [Moles/Vol] 24 mmol/L Normal 22-32 [facility] Comment on above: Performed By: #### SANTOSH SALEEM, , 2776-10 ####[facility] ([id number])[address] [address], [place] [address] Creatinine [Mass/Vol] 1.05 mg/dL High 0.40-1.00 [facility] Comment on above: Result Comment: METH OD TRACEABLE TO IDMS STANDARD Performed By: #### C SANTOSH MILLIGAN, , 2776-10 ####[facility] ([id number])[address] [address] [address] GFR/1.73 sq M.predicted among non-blacks MDRD (S/P/Bld) [Vol rate/Area] 55 mL/min/{1.73_m2} Low >59 [facility] Comment on above: Result Comment: Reported eGFR is based on the CKD-EPI 2020 equation that does not use a race coefficient. Performed By: #### C SANTOSH MILLIGAN, , 2776-10 ####[facility] ([id number])[address] [address], [place] [address] Glucose [Mass/Vol] 82 mg/dL Normal 65-99 [facility] Comment on above: Performed By: #### SANTOSH SALEEM, , 2776-10 ####[facility] ([id number])[address] [address], [place] [address] Potassium [Moles/Vol] 4.3 mmol/L Normal 3.5-5.0 [facility] Comment on above: Performed By: #### SANTOSH SALEEM, 2776-10 ####[facility] ([id number])[address] [address], [place] [address] Sodium [Moles/Vol] 139 mmol/L Normal 134-146 [facility] Comment on above: Performed By: #### C BC, BMP, , 2776-10 ####[facility] ([id number])[address] [address] Urea nitrogen [Mass/Vol] 10 mg/dL Normal 5-27 [facility] Comment on above: Performed By: #### C BC, BMP, , 2776-10 ####[facility] ([id number])[address] [address] COMPLETE BLOOD COUNTon 10-19 Erythrocyte distribution width (RBC) [Ratio] 22.7 % High 11.5-15.0 [facility] Comment on above: Performed By: #### Timmy BC, BMP, , 2776-10 ####[facility] ([id number])[address] [address] Hematocrit (Bld) [Volume fraction] 24.4 % Low 35-47 [facility] Comment on above: Performed By: #### C SRINI, BMP, , 2776-10 ####[facility] ([id number])[address] [address] Hemoglobin (Bld) [Mass/Vol] 7.8 g/dL Low 11.7-15.5 [facility] Comment on above: Performed By: #### C BC, BMP, , 2776-10 ####[facility] ([id number])[address] [address] MCH (RBC) [Entitic mass] 25.9 pg Low 27-34 [facility] Comment on above: Performed By: #### C BC, BMP, , 2776-10 ####[facility] ([id number])[address] [address] MCHC (RBC) [Mass/Vol] 31.8 g/dL Low 32-36 [facility] Comment on above: Performed By: #### SANTOSH SALEEM, , 2776-10 ####[facility] ([id number])[address] [place] [address] MCV (RBC) [Entitic vol] 82 fL Normal 80-100 [facility] Comment on above: Performed By: #### Timmy MILLIGAN, SANTOSH, , 2776-10 ####[facility] ([id number])[address], [address] [place] [address] Platelet mean volume (Bld) [Entitic vol] 6.6 fL Low 7-12 [facility] Comment on above: Performed By: #### SANTOSH SALEEM, , 2776-10 ####[facility] ([id number])[address] [address] [place] [address] Platelets (Bld) [#/Vol] 533 10*3/uL High 150-450 [facility] Comment on above: Performed By: #### SANTOSH SALEEM, , 2776-10 ####[facility] ([id number])[address] [address] RBC COUNT 2.99 X10E12/L Low 3.80-5.20 [facility] Comment on above: Performed By: #### SANTOSH SALEEM, , 2776-10 ####[facility] ([id number])[address] [place] [address] WBC (Bld) [#/Vol] 9.9 10*3/uL Normal 4.0-11.0 [facility] Comment on above: Performed By: #### SANTOSH SALEEM, , 2776-10 ####[facility] ([id number])[address], [place] [address] Calcium.ionized (Bld) [Mass/ Vol]on 10-19-2023 IONIZED CALCIUM 4.9 mg/dL Normal 4.5-5.3 [facility] Comment on above: Performed By: #### 3 8230-9 ####[facility] ([id number])[address], [place] [address] Glucose Glucometer (BldC) [M ass/Vol]on 10-19-2023 Glucose [Mass/Vol] 102 mg/dL High 65-99 [facility] Glucose [Mass/Vol] 117 mg/dL High 65-99 [facility] Glucose [Mass/Vol] 103 mg/dL High 65-99 [facility] MAGNESIUMon 10-19-2023 Magnesium [Mass/Vol] 2.0 mg/dL Normal 1.8-2.6 [facility] Comment on above: Performed By: #### C SANTOSH MILLIGAN, , 2776-10 ####[facility] ([id number])[address], [address] [place] [address] PHOSPHORUSon 10-19-2023 Phosphate [Mass/Vol] 4.3 mg/dL Normal 2.4-4.9 [facility] Comment on above: Performed By: #### SANTOSH SALEEM, , 2776-10 ####[facility] ([id number])[address] [address] BASIC METABOLIC PANLon 10-18 Anion gap [Moles/Vol] 10 mmol/L Normal 5-15 [facility] Comment on above: Performed By: #### C SANTOSH MILLIGAN, , 2776-10, 3084-1 ####[facility] ([id number])[address] [address] Calcium [Mass/Vol] 8.5 mg/dL Normal 8.5-10.5 [facility] Comment on above: Performed By: #### C SRINI, SANTOSH, , 2776-10, 3083-10 ####[facility] ([id number])[address], [place] [address] Chloride [Moles/Vol] 107 mmol/L Normal 98-109 [facility] Comment on above: Performed By: #### C SRINI, SANTOSH, , 2776-10, 3083-10 ####[facility] ([id number])[address], [place] [address] CO2 [Moles/Vol] 23 mmol/L Normal 22-32 [facility] Comment on above: Performed By: #### SANTOSH SALEEM, , 2776-10, 3083-10 ####[facility] ([id number])[address] [place] [address] Creatinine [Mass/Vol] 1.17 mg/dL High 0.40-1.00 [facility] Comment on above: Result Comment: METH OD TRACEABLE TO IDMS STANDARD Performed By: #### C SRINI, SANTOSH, , 2776-10, 3083-10 ####[facility] ([id number])[address] [address] GFR/1.73 sq M.predicted among non-blacks MDRD (S/P/Bld) [Vol rate/Area] 48 mL/min/{1.73_m2} Low >59 [facility] Comment on above: Result Comment: Reported eGFR is based on the CKD-EPI 2020 equation that does not use a race coefficient. Performed By: #### C SRINI, SANTOSH, , 2776-10, 3083-1 ####[facility] ([id number])[address] [address], [place] [address] Glucose [Mass/Vol] 82 mg/dL Normal 65-99 [facility] Comment on above: Performed By: #### C BC, BMP, , 2776-10, 3083- ####[facility] ([id number])[address] [place] [address] Potassium [Moles/Vol] 4.0 mmol/L Normal 3.5-5.0 [facility] Comment on above: Performed By: #### C BC, BMP, , 2776-10, 3083- ####[facility] ([id number])[address], [address] [place] [address] Sodium [Moles/Vol] 140 mmol/L Normal 134-146 [facility] Comment on above: Performed By: #### Timmy BC, BMP, , 2776-10, 3083- ####[facility] ([id number])[address], [address] [place] [address] Urea nitrogen [Mass/Vol] 11 mg/dL Normal 5-27 [facility] Comment on above: Performed By: #### Timmy BC, BMP, , 2776-10, 3083-10 ####[facility] ([id number])[address] [address] COMPLETE BLOOD COUNTon 10-18 Erythrocyte distribution width (RBC) [Ratio] 21.2 % High 11.5-15.0 [facility] Comment on above: Performed By: #### C BC, BMP, , 2776-10, 3083- ####[facility] ([id number])[address] [address] Hematocrit (Bld) [Volume fraction] 24.6 % Low 35-47 [facility] Comment on above: Performed By: #### Timmy BC, BMP, , 2776-10, 3083- ####[facility] ([id number])[address], [address] [address] Hemoglobin (Bld) [Mass/Vol] 7.9 g/dL Low 11.7-15.5 [facility] Comment on above: Performed By: #### Timmy MILLIGAN, BMP, , 2776-10, 3083- ####[facility] ([id number])[address], [address] [address] MCH (RBC) [Entitic mass] 26.2 pg Low 27-34 [facility] Comment on above: Performed By: #### Timmy MILLIGAN, BMP, , 2776-10, 3083- ####[facility] ([id number])[address] [address] [address] MCHC (RBC) [Mass/Vol] 32.2 g/dL Normal 32-36 [facility] Comment on above: Performed By: #### Timmy MILLIGAN, BMP, , 2776-10, 3083- ####[facility] ([id number])[address] [address] [address] MCV (RBC) [Entitic vol] 81 fL Normal 80-100 [facility] Comment on above: Performed By: #### Timmy MILLIGAN, BMP, , 2776-10, 3083- ####[facility] ([id number])[address] [address] Platelet mean volume (Bld) [Entitic vol] 6.5 fL Low 7-12 [facility] [facility] Comment on above: Performed By: #### Timmy BC, BMP, , 2776-10, 3083- ####[facility] ([id number])[address], [address] [place] [address] Platelets (Bld) [#/Vol] 522 10*3/uL High 150-450 [facility] Comment on above: Performed By: #### C BC, BMP, , 2776-10, 3083-10 ####[facility] ([id number])[address], [address] [place] [address] RBC COUNT 3.03 X10E12/L Low 3.80-5.20 [facility] Comment on above: Performed By: #### C BC, BMP, , 2776-10, 3083-10 ####[facility] ([id number])[address], [address] [place] [address] WBC (Bld) [#/Vol] 9.3 10*3/uL Normal 4.0-11.0 [facility] Comment on above: Performed By: #### C SRINI, SANTOSH, , 2776-10, 3083-10 ####[facility] ([id number])[address], [address] [place] [address] Calcium.ionized (Bld) [Mass/ Vol]on 10-18-2023 IONIZED CALCIUM 4.9 mg/dL Normal 4.5-5.3 [facility] Comment on above: Performed By: #### 3 8230-9 ####[facility] ([id number])[address], [address] [place] [address] Glucose Glucometer (BldC) [M ass/Vol]on 10-18-2023 Glucose [Mass/Vol] 108 mg/dL High 65-99 [facility] Glucose [Mass/Vol] 134 mg/dL High 65-99 [facility] Glucose [Mass/Vol] 127 mg/dL High 65-99 [facility] Glucose [Mass/Vol] 102 mg/dL High 65-99 [facility] MAGNESIUMon 10-18-2023 Magnesium [Mass/Vol] 1.7 mg/dL Low 1.8-2.6 [facility] Comment on above: Performed By: #### C BC, BMP, 61818-8, 2777-1, 3084-1 ####[facility] ([id number])[address] [facility], [address] [place] [address] MR CERVICAL SPINE WO CONTon 10-18-2023 MR [...] Roni William MD on 10/18/2023 2:39 AM Normal [facility] MR LUMBAR SPINE WO CONTon MR [...] William MD on 10/18/2023 3:37 AM Normal [facility] MR THORACIC SPINE WO CONTon 10-18-2023 MR [...] William MD on 10/18/2023 3:25 AM Normal [facility] PHOSPHORUSon 10-18-2023 Phosphate [Mass/Vol] 4.1 mg/dL Normal 2.4-4.9 [facility] Comment on above: Performed By: #### C SRINI, BMP, 82553-2, 2777-1, 3084-1 ####[facility] ([id number])[address], [address] [place] [address] URIC ACIDon 10-18-2023 Urate [Mass/Vol] 4.7 mg/dL Normal 2.6-7.2 [facility] Comment on above: Performed By: #### C SRINI, BMP, 57252-4, 2777-1, 3084-1 ####[facility] ([id number])[address], [address] [place] [address] XR WRIST RT 2 VWSon 10-18-20 23 [...] Rod MD on 10/18/2023 2:24 PM Normal [facility] BASIC METABOLIC PANLon 10-17 Anion gap [Moles/Vol] 8 mmol/L Normal 5-15 [facility] Comment on above: Performed By: #### 1 7928-3 #### [facility] ([id number]) [address], [address] [place] [address] Calcium [Mass/Vol] 8.5 mg/dL Normal 8.5-10.5 [facility] Comment on above: Performed By: #### 1 7928-3 #### [facility] ([id number]) [address], [address] [place] [address] Chloride [Moles/Vol] 105 mmol/L Normal 98-109 [facility] Comment on above: Performed By: #### 1 7928-3 #### [facility] ([id number]) [address], [address] [place] [address] CO2 [Moles/Vol] 24 mmol/L Normal 22-32 [facility] Comment on above: Performed By: #### 1 7928-3 #### [facility] ([id number]) [address], [address] [place] [address] Creatinine [Mass/Vol] 1.03 mg/dL High 0.40-1.00 [facility] Comment on above: Result Comment: METH OD TRACEABLE TO IDMS STANDARD Performed By: #### 1 7928-3 #### [facility] ([id number]) [address], [address] [place] [address] GFR/1.73 sq M.predicted among non-blacks MDRD (S/P/Bld) [Vol rate/Area] 56 mL/min/{1.73_m2} Low >59 [facility] Comment on above: Result Comment: Reported eGFR is based on the CKD-EPI 1 equation that does not use a race coefficient. Performed By: #### 1 7928-3 #### [facility] ([id number]) [address], [address] [place] [address] Glucose [Mass/Vol] 88 mg/dL Normal 65-99 [facility] Comment on above: Performed By: #### 1 7928-3 #### [facility] ([id number]) [address], [address] [place] [address] Potassium [Moles/Vol] 4.2 mmol/L Normal 3.5-5.0 [facility] Comment on above: Performed By: #### 1 7928-3 #### [facility] ([id number]) [address], [address] [place] [address] Sodium [Moles/Vol] 137 mmol/L Normal 134-146 [facility] Comment on above: Performed By: #### 1 7928-3 #### [facility] ([id number]) [address], [address] [place] [address] Urea nitrogen [Mass/Vol] 13 mg/dL Normal 5-27 [facility] Comment on above: Performed By: #### 1 7928-3 #### [facility] ([id number]) [address] [address] [place] [address] COMPLETE BLOOD COUNTon 10-17 Erythrocyte distribution width (RBC) [Ratio] 21.4 % High 11.5-15.0 [facility] Comment on above: Performed By: #### 1 7928-3 #### [facility] ([id number]) [address], [address] [place] [address] Hematocrit (Bld) [Volume fraction] 25.0 % Low 35-47 [facility] Comment on above: Performed By: #### 1 7928-3 #### [facility] ([id number]) [address], [address] [place] [address] Hemoglobin (Bld) [Mass/Vol] 7.9 g/dL Low 11.7-15.5 [facility] Comment on above: Performed By: #### 1 7928-3 #### [facility] ([id number]) [address] [address] [place] [address] MCH (RBC) [Entitic mass] 25.4 pg Low 27-34 [facility] Comment on above: Performed By: #### 1 7928-3 #### [facility] ([id number]) [address], [address] [place] [address] MCHC (RBC) [Mass/Vol] 31.4 g/dL Low 32-36 [facility] Comment on above: Performed By: #### 1 7928-3 #### [facility] ([id number]) [address], [address] [place] [address] MCV (RBC) [Entitic vol] 81 fL Normal 80-100 [facility] Comment on above: Performed By: #### 1 7928-3 #### [facility] ([id number]) [address], [address] [place] [address] Platelet mean volume (Bld) [Entitic vol] 6.6 fL Low 7-12 [facility] Comment on above: Performed By: #### 1 7928-3 #### [facility] ([id number]) [address], [address] [place] [address] Platelets (Bld) [#/Vol] 519 10*3/uL High 150-450 [facility] Comment on above: Performed By: #### 1 7928-3 #### [facility] ([id number]) [address], [address] [place] [address] RBC COUNT 3.09 X10E12/L Low 3.80-5.20 [facility] Comment on above: Performed By: #### 1 7928-3 #### [facility] ([id number]) [address], [address] [place] [address] WBC (Bld) [#/Vol] 10.7 10*3/uL Normal 4.0-11.0 [facility] Comment on above: Performed By: #### 1 7928-3 #### [facility] ([id number]) [address], [address] [place] [address] Calcium.ionized (Bld) [Mass/ Vol]on 10-17-2023 IONIZED CALCIUM 4.8 mg/dL Normal 4.5-5.3 [facility] Comment on above: Performed By: #### 1 7928-3 #### [facility] ([id number]) [address], [address] [place] [address] Glucose Glucometer (BldC) [M ass/Vol]on 10-17-2023 Glucose [Mass/Vol] 106 mg/dL High 65-99 [facility] Glucose [Mass/Vol] 96 mg/dL Normal 65-99 [facility] Glucose [Mass/Vol] 123 mg/dL High 65-99 [facility] Glucose [Mass/Vol] 88 mg/dL Normal 65-99 [facility] MAGNESIUMon 10-17-2023 Magnesium [Mass/Vol] 2.1 mg/dL Normal 1.8-2.6 [facility] Comment on above: Performed By: #### 1 7928-3 #### [facility] ([id number]) [address], [address] [place] [address] PHOSPHORUSon 10-17-2023 Phosphate [Mass/Vol] 3.8 mg/dL Normal 2.4-4.9 [facility] Comment on above: Result Comment: SPEC IMEN HEMOLYZED, RESULTS INCREASED SLIGHTLY HEMOLYZED Performed By: #### 1 7928-3 #### [facility] ([id number]) [address], [address] [place] [address] BASIC METABOLIC PANLon 10-16 Anion gap [Moles/Vol] 10 mmol/L Normal 5-15 [facility] Comment on above: Performed By: #### E LEC #### [facility] ([id number]) [address], [address] [place] [address] Calcium [Mass/Vol] 9.0 mg/dL Normal 8.5-10.5 [facility] Comment on above: Performed By: #### E LEC #### [facility] ([id number]) [address], [address] [place] [address] Chloride [Moles/Vol] 106 mmol/L Normal 98-109 [facility] Comment on above: Performed By: #### E LEC #### [facility] ([id number]) [address], [address] [place] [address] CO2 [Moles/Vol] 22 mmol/L Normal 22-32 [facility] Comment on above: Performed By: #### E LEC #### [facility] ([id number]) [address], [address] [place] [address] Creatinine [Mass/Vol] 1.03 mg/dL High 0.40-1.00 [facility] Comment on above: Result Comment: METH OD TRACEABLE TO IDMS STANDARD Performed By: #### E LEC #### [facility] ([id number]) [address], [address] [place] [address] GFR/1.73 sq M.predicted among non-blacks MDRD (S/P/Bld) [Vol rate/Area] 56 mL/min/{1.73_m2} Low >59 [facility] Comment on above: Result Comment: Reported eGFR is based on the CKD-EPI 2020 equation that does not use a race coefficient. Performed By: #### E LEC #### [facility] ([id number]) [address], [address] [place] [address] Glucose [Mass/Vol] 87 mg/dL Normal 65-99 [facility] Comment on above: Performed By: #### E LEC #### [facility] ([id number]) [address] [address] [place] [address] Potassium [Moles/Vol] 4.4 mmol/L Normal 3.5-5.0 [facility] Comment on above: Performed By: #### E LEC #### [facility] ([id number]) [address], [address] [place] [address] Sodium [Moles/Vol] 138 mmol/L Normal 134-146 [facility] Comment on above: Performed By: #### E LEC #### [facility] ([id number]) [address], [address] [place] [address] Urea nitrogen [Mass/Vol] 13 mg/dL Normal 5-27 [facility] Comment on above: Performed By: #### E LEC #### [facility] ([id number]) [address], [facility] [address] [place] [address] CK [Catalytic activity/Vol]o n 10-16-2023 CPK 35 U/L Normal 24-170 [facility] Comment on above: Performed By: #### 1 7928-3 #### [facility] ([id number]) [address] [address] COMPLETE BLOOD COUNTon 10-16 Erythrocyte distribution width (RBC) [Ratio] 20.1 % High 11.5-15.0 [facility] Comment on above: Performed By: #### E LEC #### [facility] ([id number]) [address] [address] [place] [address] Hematocrit (Bld) [Volume fraction] 26.5 % Low 35-47 [facility] Comment on above: Performed By: #### E LEC #### [facility] ([id number]) [address] [address] [place] [address] Hemoglobin (Bld) [Mass/Vol] 8.5 g/dL Low 11.7-15.5 [facility] Comment on above: Performed By: #### E LEC #### [facility] ([id number]) [address] [address] MCH (RBC) [Entitic mass] 25.9 pg Low 27-34 [facility] Comment on above: Performed By: #### E LEC #### [facility] ([id number]) [address], [address] [place] [address] MCHC (RBC) [Mass/Vol] 32.1 g/dL Normal 32-36 [facility] Comment on above: Performed By: #### E LEC #### [facility] ([id number]) [address], [address] [place] [address] MCV (RBC) [Entitic vol] 81 fL Normal 80-100 [facility] Comment on above: Performed By: #### E LEC #### [facility] ([id number]) [address] [address] [place] [address] Platelet mean volume (Bld) [Entitic vol] 6.8 fL Low 7-12 [facility] Comment on above: Performed By: #### E LEC #### [facility] ([id number]) [address] [address] [place] [address] Platelets (Bld) [#/Vol] 633 10*3/uL High 150-450 [facility] Comment on above: Performed By: #### E LEC #### [facility] ([id number]) [address], [address] [place] [address] RBC COUNT 3.28 X10E12/L Low 3.80-5.20 [facility] Comment on above: Performed By: #### E LEC #### [facility] ([id number]) [address] [address] [place] [address] WBC (Bld) [#/Vol] 16.2 10*3/uL High 4.0-11.0 [facility] Comment on above: Performed By: #### E LEC #### [facility] ([id number]) [address], [address] [place] [address] Calcium.ionized (Bld) [Mass/ Vol]on 10-16-2023 IONIZED CALCIUM 5.0 mg/dL Normal 4.5-5.3 [facility] Comment on above: Performed By: #### E LEC #### [facility] ([id number]) [address], [address] [place] [address] Glucose Glucometer (BldC) [M ass/Vol]on 10-16-2023 Glucose [Mass/Vol] 119 mg/dL High 65-99 [facility] Glucose [Mass/Vol] 128 mg/dL High 65-99 [facility] Glucose [Mass/Vol] 125 mg/dL High 65-99 [facility] Glucose [Mass/Vol] 88 mg/dL Normal 65-99 [facility] LIVER PANELon 10-16-2023 Albumin [Mass/Vol] 2.6 g/dL Low 3.2-5.3 [facility] Comment on above: Performed By: #### 1 7928-3 #### [facility] ([id number]) [address], [address] [place] [address] ALP [Catalytic activity/Vol] 104 U/L Normal 39-130 [facility] Comment on above: Performed By: #### 1 7928-3 #### [facility] ([id number]) [address], [address] [place] [address] ALT [Catalytic activity/Vol] 6 U/L Normal 0-31 [facility] Comment on above: Performed By: #### 1 7928-3 #### [facility] ([id number]) [address], [address] [place] [address] AST [Catalytic activity/Vol] 16 U/L Normal 0-41 [facility] Comment on above: Performed By: #### 1 7928-3 #### [facility] ([id number]) [address], [address] [place] [address] Bilirubin [Mass/Vol] 0.3 mg/dL Normal 0.3-1.2 [facility] Comment on above: Performed By: #### 1 7928-3 #### [facility] ([id number]) [address], [address] [place] [address] Bilirubin.direct [Mass/Vol] 0.1 mg/dL Normal 0.0-0.4 [facility] Comment on above: Performed By: #### 1 7928-3 #### [facility] ([id number]) [address], [address] [place] [address] Protein [Mass/Vol] 6.9 g/dL Normal 6.0-8.0 [facility] Comment on above: Performed By: #### 1 7928-3 #### [facility] ([id number]) [address], [address] [place] [address] MAGNESIUMon 10-16-2023 Magnesium [Mass/Vol] 2.9 mg/dL High 1.8-2.6 [facility] Comment on above: Performed By: #### E LEC #### [facility] ([id number]) [address], [address] [place] [address] PHOSPHORUSon 10-16-2023 Phosphate [Mass/Vol] 4.3 mg/dL Normal 2.4-4.9 [facility] Comment on above: Performed By: #### 1 7928-3 #### [facility] ([id number]) [address], [address] [place] [address] BASIC METABOLIC PANLon 10-15 Anion gap [Moles/Vol] 9 mmol/L Normal 5-15 [facility] Comment on above: Performed By: #### C SANTOSH MILLIGAN, , 2776- #### [facility] ([id number]) [address], [address] [place] [address] Calcium [Mass/Vol] 9.4 mg/dL Normal 8.5-10.5 [facility] Comment on above: Performed By: #### C SRINI BMP, , 2776-10 #### [facility] ([id number]) [address], [address] [place] [address] Chloride [Moles/Vol] 103 mmol/L Normal 98-109 [facility] Comment on above: Performed By: #### C BC, BMP, , 2776-10 #### [facility] ([id number]) [address], [address] [place] [address] CO2 [Moles/Vol] 23 mmol/L Normal 22-32 [facility] Comment on above: Performed By: #### Timmy BC, [facility], , 2776-10 #### [facility] ([id number]) [address], [address] [place] [address] Creatinine [Mass/Vol] 0.94 mg/dL Normal 0.40-1.00 [facility] Comment on above: Result Comment: METH OD TRACEABLE TO IDMS STANDARD Performed By: #### C SRINI, [facility], , 2776-10 #### [facility] ([id number]) [address] [address] [place] [address] GFR/1.73 sq M.predicted among non-blacks MDRD (S/P/Bld) [Vol rate/Area] 62 mL/min/{1.73_m2} Normal >59 [facility] Comment on above: Result Comment: Reported eGFR is based on the CKD-EPI 2020 equation that does not use a race coefficient. Performed By: #### C BC, BMP, , 2776-10 #### [facility] ([id number]) [address], [address] [place] [address] Glucose [Mass/Vol] 89 mg/dL Normal 65-99 [facility] Comment on above: Performed By: #### Timmy BC, BMP, , 2776-10 #### [facility] ([id number]) [address] [address] [place] [address] Potassium [Moles/Vol] 4.2 mmol/L Normal 3.5-5.0 [facility] Comment on above: Performed By: #### C SRINI [facility], , 2776-10 #### [facility] ([id number]) [address], [facility] [address] [place] [address] Sodium [Moles/Vol] 135 mmol/L Normal 134-146 [facility] Comment on above: Performed By: #### Timmy MILLIGAN, [facility], , 2776-10 #### [facility] ([id number]) [address], [facility] [address] [place] [address] Urea nitrogen [Mass/Vol] 13 mg/dL Normal 5-27 [facility] Comment on above: Performed By: #### SANTOSH SALEEM, , 2776-10 #### [facility] ([id number]) [address], [address] [place] [address] COMPLETE BLOOD COUNTon 10-15 Erythrocyte distribution width (RBC) [Ratio] 18.7 % High 11.5-15.0 [facility] Comment on above: Performed By: #### SANTOSH SALEEM, , 2776-10 #### [facility] ([id number]) [address], [facility] [address] [place] [address] Hematocrit (Bld) [Volume fraction] 29.7 % Low 35-47 [facility] Comment on above: Performed By: #### Timmy MILLIGAN, BMP, , 2776-10 #### [facility] ([id number]) [address] [address] [place] [address] Hemoglobin (Bld) [Mass/Vol] 9.3 g/dL Low 11.7-15.5 [facility] Comment on above: Performed By: #### Timmy MILLIGAN, BMP, , 2776-10 #### [facility] ([id number]) [address], [address] [place] [address] MCH (RBC) [Entitic mass] 25.1 pg Low 27-34 [facility] Comment on above: Performed By: #### C SANTOSH MILLIGAN, , 2776-10 #### [facility] ([id number]) [address], [address] [place] [address] MCHC (RBC) [Mass/Vol] 31.3 g/dL Low 32-36 [facility] Comment on above: Performed By: #### SANTOSH SALEEM, , 2776-10 #### [facility] ([id number]) [address], [address] [place] [address] MCV (RBC) [Entitic vol] 80 fL Normal 80-100 [facility] Comment on above: Performed By: #### SANTOSH SALEEM, , 2776-10 #### [facility] ([id number]) [address], [address] [place] [address] Platelet mean volume (Bld) [Entitic vol] 7.0 fL Normal 7-12 [facility] Comment on above: Performed By: #### SANTOSH SALEEM, , 2776-10 #### [facility] ([id number]) [address], [address] [place] [address] Platelets (Bld) [#/Vol] 705 10*3/uL High 150-450 [facility] Comment on above: Performed By: #### SANTOSH SALEEM, , 2776-10 #### [facility] ([id number]) [address], [address] [place] [address] RBC COUNT 3.71 X10E12/L Low 3.80-5.20 [facility] Comment on above: Performed By: #### SANTOSH SALEEM, , 1 #### [facility] ([id number]) [address], [address] [place] [address] WBC (Bld) [#/Vol] 24.4 10*3/uL High 4.0-11.0 [facility] Comment on above: Performed By: #### C BC, [facility], [address]-9, 2777- #### [facility] ([id number]) [address], [address] [place] [address] Calcium.ionized (Bld) [Mass/ Vol]on 10-15-2023 IONIZED CALCIUM 4.8 mg/dL Normal 4.5-5.3 [facility] Comment on above: Performed By: #### 3 8230-9 #### [facility] ([id number]) [address], [address] [place] [address] FL SWALLOW MOTILITY FUNCTION on 10-15-2023 FL [...] Pereira MD on 10/15/2023 2:48 PM Normal [facility] Glucose Glucometer (BldC) [M ass/Vol]on 10-15-2023 Glucose [Mass/Vol] 111 mg/dL High 65-99 [facility] Glucose [Mass/Vol] 93 mg/dL Normal 65-99 [facility] Glucose [Mass/Vol] 99 mg/dL Normal 65-99 [facility] MAGNESIUMon 10-15-2023 Magnesium [Mass/Vol] 1.5 mg/dL Low 1.8-2.6 [facility] Comment on above: Performed By: #### E LEC #### [facility] ([id number]) [address] [place] [address] PHOSPHORUSon 10-15-2023 Phosphate [Mass/Vol] 3.4 mg/dL Normal 2.4-4.9 [facility] Comment on above: Performed By: #### E LEC #### [facility] ([id number]) [address], [address] [place] [address] Vancomycin trough [Mass/Vol] on 10-15-2023 VANCOMYCIN TROUGH 15.5 ug/mL Normal 5.0-20.0 [facility] Comment on above: Performed By: #### E LEC #### [facility] ([id number]) [address], [address] [place] [address] ELECTROLYTESon 10-14-2023 Anion gap [Moles/Vol] 7 mmol/L Normal 5-15 [facility] Comment on above: Performed By: #### E LEC #### [facility] ([id number]) [address], [address] [place] [address] Chloride [Moles/Vol] 106 mmol/L Normal 98-109 [facility] Comment on above: Performed By: #### E LEC #### [facility] ([id number]) [address] [place] [address] CO2 [Moles/Vol] 22 mmol/L Normal 22-32 [facility] Comment on above: Performed By: #### E LEC #### [facility] ([id number]) [address] [place] [address] Potassium [Moles/Vol] 5.8 mmol/L High 3.5-5.0 [facility] Comment on above: Performed By: #### E LEC #### [facility] ([id number]) [address] [place] [address] Sodium [Moles/Vol] 135 mmol/L Normal 134-146 [facility] Comment on above: Performed By: #### E LEC #### [facility] ([id number]) [address] [place] [address] Glucose Glucometer (BldC) [M ass/Vol]on 10-14-2023 Glucose [Mass/Vol] 84 mg/dL Normal 65-99 [facility] Glucose [Mass/Vol] 105 mg/dL High 65-99 [facility] Glucose [Mass/Vol] 85 mg/dL Normal 65-99 [facility] BLOOD CULTUREon 10-13-2023 Bacteria identified Aer cx Nom (Bld) SPECIMEN NOTES SUBOPTIMAL VOLUME OF BLOOD COLLECTED, RESULTS MAY BE AFFECTED. CULTURE RESULTS NO GROWTH 5 DAYS Normal [facility] Comment on above: Performed By: #### 1 7928-3 #### [facility] ([id number]) [address], [address] [place] [address] BLOOD CULTUREon 10-05-2023 Bacteria identified Aer cx Nom (Bld) CULTURE RESULTS STAPHYLOCOCCUS AUREUS METHICILLIN RESISTANT Staphylcoccus aureus detected by PCR. mecA/C and MREJ gene detected by PCR (MRSA). Organism: STAPHYLOCOCCUS AUREUS Antibiotic Interpretation NATALIA Status CEFAZOLIN R F CLINDAMYCIN R >=4 F OXACILLIN R >=4 F TRIMETH/SULFAMETHOXAZOLE S <=.5/9.5 F VANCOMYCIN S 1 F DAPTOMYCIN S 0.25 F DOXYCYCLINE S 2 F Susceptible [facility] Comment on above: Performed By: #### 1 7928-3 #### [facility] ([id number]) [address], [address] [place] [address] Calcium [Mass/volume] in Ser um or PlasmaOrdered By: Jesus Alberto Aquino on 08-20-2023 Calcium [Mass/Vol] 7.5 mg/dL 8.6-10.3 [facility] [facility] Carbon dioxide, total [Moles /volume] in Serum or PlasmaOrdered By: Jesus Alberto Aquino on 08-20-2023 CO2 [Moles/Vol] 25.5 mmol/L 21.0-31.0 [facility] Chloride [Moles/volume] in S kaveh or PlasmaOrdered By: Jesus Alberto Aquino on 08-20-2023 Chloride [Moles/Vol] 109 mmol/L 98-107 [facility] Creatinine [Mass/volume] in Serum or PlasmaOrdered By: Jesus Alberto Aquino on 08-20-2023 Creatinine [Mass/Vol] 1.08 mg/dL 0.60-1.20 [facility] Comment on above: Delta: 1.60 on 08/19 Glucose [Mass/volume] in Ser um or PlasmaOrdered By: Jesus Alberto Aquino on 08-20-2023 Glucose [Mass/Vol] 57 mg/dL 70-100 [facility] Comment on above: ADA recommended refe rence rangeRandom Glucose Reference Range is dependent on time and content of last meal. Glucose of more than 200 mg/dL in a nonstressed, ambulatory subject supports the diagnosis of Diabetes Mellitus. No Panel InformationOrdered By: Jesus Alberto Aquino on 08-20-2023 Estimated GFR (CKD-EPI) 52.905 mL/Min [facility] Creatinine Clearance (Chem 41.58 [facility] Potassium [Moles/volume] in Serum or PlasmaOrdered By: Jesus Alberto Aquino on 08-20-2023 Potassium [Moles/Vol] 4.2 mmol/L 3.5-5.1 [facility] Serum or plasma anion gap de terminationOrdered By: Jesus Alberto Aquino on 08-20-2023 Anion gap [Moles/Vol] 12.7 mmol/L 6.0-15.0 [facility] Sodium [Moles/volume] in Ser um or PlasmaOrdered By: Jesus Alberto Aquino on 08-20-2023 Sodium [Moles/Vol] 143 mmol/L 136-145 [facility] Urea nitrogen [Mass/volume] in Serum or PlasmaOrdered By: Jesus Alberto Aquino on 08-20-2023 Urea nitrogen [Mass/Vol] 19 mg/dL 7-25 [facility] Erythrocyte distribution wid th Auto (RBC) [Ratio]Ordered By: Jesus Alberto Aquino on 08-19-2023 Erythrocyte distribution width (RBC) [Ratio] 17.2 % 11.9-15.3 [facility] Hematocrit Auto (Bld) [Volum e fraction]Ordered By: Jesus Alberto Aquino on 08-19-2023 Hematocrit (Bld) [Volume fraction] 31.8 % 34.0-46.4 [facility] Hemoglobin [Mass/volume] in BloodOrdered By: Jesus Alberto Aquino on 08-19-2023 Hemoglobin (Bld) [Mass/Vol] 10.3 g/dL 11.8-15.4 [facility] Leukocytes [#/volume] correc juma for nucleated erythrocytes in Blood by Automated counOrdered By: Jesus Alberto Aquino on 08-19-2023 WBC corrected for nucl RBC Auto (Bld) [#/Vol] 15.6 10*3/uL 3.8-11.6 [facility] MCH Auto (RBC) [Entitic mass ]Ordered By: Jesus Alberto Aquino on 08-19-2023 MCH (RBC) [Entitic mass] 27.7 pg 24.7-34.3 [facility] MCHC Auto (RBC) [Mass/Vol]Or dered By: Jesus Alberto Aquino on 08-19-2023 MCHC (RBC) [Mass/Vol] 32.4 g/dL 32.0-35.0 [facility] MCV Auto (RBC) [Entitic vol] Ordered By: Jesus Alberto Aquino on 08-19-2023 MCV (RBC) [Entitic vol] 85.4 fL 80-100 [facility] Platelet mean volume Auto (B ld) [Entitic vol]Ordered By: Jesus Alberto Aquino on 08-19-2023 Platelet mean volume (Bld) [Entitic vol] 8.9 fL 6.3-10.7 [facility] Platelets Auto (Bld) [#/Vol] Ordered By: Jesus Alberto Aquino on 08-19-2023 Platelets (Bld) [#/Vol] 201 10*3/uL 150-450 [facility] RBC Auto (Bld) [#/Vol]Ordere d By: Jesus Alberto Aquino on 08-19-2023 RBC (Bld) [#/Vol] 3.72 10*6/uL 3.60-5.00 [facility] Basophils Auto (Bld) [#/Vol] Ordered By: Jesus Alberto Aquino on 08-18-2023 Basophils (Bld) [#/Vol] 0.1 10*3/uL 0.0-0.2 [facility] Basophils/100 WBC Auto (Bld) Ordered By: Jesus Alberto Aquino on 08-18-2023 Basophils/100 WBC (Bld) 0.3 % . [facility] Eosinophils Auto (Bld) [#/Vo l]Ordered By: Jesus Alberto Aquino on 08-18-2023 Eosinophils (Bld) [#/Vol] 0.0 10*3/uL 0.0-0.45 [facility] Eosinophils/100 WBC Auto (Bl d)Ordered By: Jesus Alberto Aquino on 08-18-2023 Eosinophils/100 WBC (Bld) 0.1 % . [facility] Lymphocytes Auto (Bld) [#/Vo l]Ordered By: Jesus Alberto Aquino on 08-18-2023 Lymphocytes (Bld) [#/Vol] 2.8 10*3/uL 1.00-4.8 [facility] Lymphocytes/100 WBC Auto (Bl d)Ordered By: Jesus Alberto Aquino on 08-18-2023 Lymphocytes/100 WBC (Bld) 10.9 % . [facility] Monocytes Auto (Bld) [#/Vol] Ordered By: Jesus Alberto Aquino on 08-18-2023 Monocytes (Bld) [#/Vol] 1.1 10*3/uL 0.0-0.8 [facility] Monocytes/100 WBC Auto (Bld) Ordered By: Jesus Alberto Aquino on 08-18-2023 Monocytes/100 WBC (Bld) 4.4 % . [facility] Neutrophils Auto (Bld) [#/Vo l]Ordered By: Jesus Alberto Aquino on 08-18-2023 Neutrophils (Bld) [#/Vol] 21.6 10*3/uL 1.8-7.7 [facility] Neutrophils/100 WBC Auto (Bl d)Ordered By: Jesus Alberto Aquino on 08-18-2023 Neutrophils/100 WBC (Bld) 84.3 % . [facility] Nucleated erythrocytes [Pres ence] in Blood by Automated countOrdered By: Jesus Alberto Aquino on 08-18-2023 Nucleated RBC Auto Ql (Bld) 0.2 /100{WBC} 0-0.5 [facility] WBC Auto (Bld) [#/Vol]Ordere d By: Jesus Alberto Aquino on 08-18-2023 WBC (Bld) [#/Vol] 25.6 10*3/uL 3.8-11.6 [facility] Activated partial thrombopla stin time (aPTT) in platelet poor plasma by coagulation aOrdered By: Maury Morrissey on 08-17-2023 aPTT Coag (PPP) [Time] 26.3 s 25.1-36.5 [facility] Comment on above: A hematocrit value g reater than 55% may lead to inaccurate results in coagulation testing. Patients having hematocrit values >55% require a special collection tube for coagulation studies. Please contact the laboratory at [phone] for redraw instructions. Alanine aminotransferase [En zymatic activity/volume] in Serum or PlasmaOrdered By: Maury Morrissey on 08-17-2023 ALT [Catalytic activity/Vol] 24 U/L 7-52 [facility] Albumin [Mass/volume] in Ser um or Plasma by Bromocresol green (BCG) dye binding methoOrdered By: Maury Morrissey on 08-17-2023 Albumin BCG dye [Mass/Vol] 3.4 g/dL 3.5-5.7 [facility] Alkaline phosphatase [Enzyma tic activity/volume] in Serum or PlasmaOrdered By: Maury Morrissey on 08-17-2023 ALP [Catalytic activity/Vol] 64 U/L 34-104 [facility] Anisocytosis LM Ql (Bld)Orde red By: Maury Morrissey on 08-17-2023 Anisocytosis Ql (Bld) Moderate [facility] Aspartate aminotransferase [ Enzymatic activity/volume] in Serum or PlasmaOrdered By: Maury Morrissey on 08-17-2023 AST [Catalytic activity/Vol] 23 U/L 13-39 [facility] Automated erythrocytes count in urine sediment (number/area)Ordered By: Maury Morrissey on 08-17-2023 RBC Auto (Urine sed) [#/Area] 0-1 [HPF] 0-4 [facility] Automated leukocytes count i n urine sediment (number/area)Ordered By: Maury Morrissey on 08-17-2023 WBC Auto (Urine sed) [#/Area] 1-2 [HPF] 0-4 [facility] Basophils Auto (Bld) [#/Vol] Ordered By: Maury Morrissey on 08-17-2023 Basophils (Bld) [#/Vol] 0.0 10*3/uL 0.0-0.2 [facility] Basophils/100 WBC Auto (Bld) Ordered By: Maury Morrissey on 08-17-2023 Basophils/100 WBC (Bld) 0.2 % . [facility] Bilirubin Test strip Ql (U)O rdered By: Maury Morrissey on 08-17-2023 Bilirubin Ql (U) Negative Negative [facility] Bilirubin.direct [Mass/volum e] in Serum or PlasmaOrdered By: Maury Morrissey on 08-17-2023 Bilirubin.direct [Mass/Vol] 0.20 mg/dL 0.03-0.18 [facility] Bilirubin.total [Mass/volume ] in Serum or PlasmaOrdered By: Maury Morrissey on 08-17-2023 Bilirubin [Mass/Vol] 0.6 mg/dL 0.3-1.0 [facility] Calcium [Mass/volume] in Ser um or PlasmaOrdered By: Maury Morrissey on 08-17-2023 Calcium [Mass/Vol] 9.1 mg/dL 8.6-10.3 [facility] Carbon dioxide, total [Moles /volume] in Serum or PlasmaOrdered By: Maury Morrissey on 08-17-2023 CO2 [Moles/Vol] 27.3 mmol/L 21.0-31.0 [facility] Chloride [Moles/volume] in S kaveh or PlasmaOrdered By: Muary Morrissey on 08-17-2023 Chloride [Moles/Vol] 97 mmol/L 98-107 [facility] Color Auto (U)Ordered By: Arturo red Yuni on 08-17-2023 Color (U) Yellow Yellow [facility] Creatine kinase [Enzymatic a ctivity/volume] in Serum or PlasmaOrdered By: Maury Morrissey on 08-17-2023 CK [Catalytic activity/Vol] 87 U/L 30-223 [facility] Creatinine [Mass/volume] in Serum or PlasmaOrdered By: Maury Morrissey on 08-17-2023 Creatinine [Mass/Vol] 4.44 mg/dL 0.60-1.20 [facility] Eosinophils Auto (Bld) [#/Vo l]Ordered By: Maury Morrissey on 08-17-2023 Eosinophils (Bld) [#/Vol] 0.0 10*3/uL 0.0-0.45 [facility] Eosinophils/100 WBC Auto (Bl d)Ordered By: Maury Morrissey on 08-17-2023 Eosinophils/100 WBC (Bld) 0.0 % . [facility] Erythrocyte distribution wid th Auto (RBC) [Ratio]Ordered By: Maury Morrissey on 08-17-2023 Erythrocyte distribution width (RBC) [Ratio] 17.6 % 11.9-15.3 [facility] Globulin Calc (S) [Mass/Vol] Ordered By: Maury Morrissey on 08-17-2023 Globulin (S) [Mass/Vol] 3.7 g/dL [facility] Glucose [Mass/volume] in Ser um or PlasmaOrdered By: Maury Morrissey on 08-17-2023 Glucose [Mass/Vol] 79 mg/dL 70-100 [facility] Comment on above: ADA recommended refe rence rangeRandom Glucose Reference Range is dependent on time and content of last meal. Glucose of more than 200 mg/dL in a nonstressed, ambulatory subject supports the diagnosis of Diabetes Mellitus. Hematocrit Auto (Bld) [Volum e fraction]Ordered By: Maury Morrissey on 08-17-2023 Hematocrit (Bld) [Volume fraction] 37.9 % 34.0-46.4 [facility] Hemoglobin [Mass/volume] in BloodOrdered By: Maury Morrissey on 08-17-2023 Hemoglobin (Bld) [Mass/Vol] 12.0 g/dL 11.8-15.4 [facility] Hypochromia LM Ql (Bld)Order ed By: Maury Morrissey on 08-17-2023 Hypochromia Ql (Bld) Slight [facility] INR in Platelet poor plasma by Coagulation assayOrdered By: Maury Morrissey on 08-17-2023 INR Coag (PPP) [Relative time] 1.1 {INR} [facility] Comment on above: INR Therapeutic Rang e A) Pre- and Peroperative OAT started two weeks before surgery. NOT HIP SURGERY: 1.5 - 2.5 HIP SURGERY: 2 - 3B) Primary and secondary prevention of venous THROMBOSIS: 2 - 3C) Active venous thrombosis, pulmonary embolismand prevention of recurrent venous thrombosis: 2 - 3D) Prevention of arterial thromboembolismincluding patients with mechanical heart valves: 3 - 4.5 Ketones Auto test strip (U) [Mass/Vol]Ordered By: Maury Morrissey on 08-17-2023 Ketones (U) [Mass/Vol] Negative Negative [facility] - UrinalysisOrder ed By: Maury Morrissey on 08-17-2023 Hyaline casts LM Ql (Urine sed) 0-8 [LPF] 0-8 [facility] Lactate [Moles/volume] in Se rum or PlasmaOrdered By: Maury Morrissey on 08-17-2023 Lactate [Moles/Vol] 1.1 mmol/L 0.5-2.2 [facility] Leukocytes [#/volume] correc juma for nucleated erythrocytes in Blood by Automated counOrdered By: Maury Morrissey on 08-17-2023 WBC corrected for nucl RBC Auto (Bld) [#/Vol] 29.3 10*3/uL 3.8-11.6 [facility] Lymphocytes Auto (Bld) [#/Vo l]Ordered By: Maury Morrissey on 08-17-2023 Lymphocytes (Bld) [#/Vol] 2.3 10*3/uL 1.00-4.8 [facility] Lymphocytes/100 WBC Auto (Bl d)Ordered By: Maury Morrissey on 08-17-2023 Lymphocytes/100 WBC (Bld) 7.8 % . [facility] MCH Auto (RBC) [Entitic mass ]Ordered By: Maury Morrissey on 08-17-2023 MCH (RBC) [Entitic mass] 27.3 pg 24.7-34.3 [facility] MCHC Auto (RBC) [Mass/Vol]Or dered By: Maury Morrissey on 08-17-2023 MCHC (RBC) [Mass/Vol] 31.6 g/dL 32.0-35.0 [facility] MCV Auto (RBC) [Entitic vol] Ordered By: Maury Morrissey on 08-17-2023 MCV (RBC) [Entitic vol] 86.4 fL 80-100 [facility] Monocyte distribution width [Entitic volume] in Blood by AutomatedOrdered By: Maury Morrissey on 08-17-2023 Monocyte distribution width Auto (Bld) [Entitic vol] 23.25 % 0.00-20.00 [facility] Comment on above: For adults in ED, MD W > 20.0 may be associated with a higher risk of sepsis during the first 12 hrs of hospital admission Monocytes Auto (Bld) [#/Vol] Ordered By: Maury Morrissey on 08-17-2023 Monocytes (Bld) [#/Vol] 1.6 10*3/uL 0.0-0.8 [facility] Monocytes/100 WBC Auto (Bld) Ordered By: Maury Morrissey on 08-17-2023 Monocytes/100 WBC (Bld) 5.5 % . [facility] Natriuretic peptide B [Mass/ Vol]Ordered By: Maury Morrissey on 08-17-2023 Natriuretic peptide B (Bld) [Mass/Vol] 68.0 pg/mL 5-100 [facility] Neutrophils Auto (Bld) [#/Vo l]Ordered By: Maury Morrissey on 08-17-2023 Neutrophils (Bld) [#/Vol] 25.4 10*3/uL 1.8-7.7 [facility] Neutrophils/100 WBC Auto (Bl d)Ordered By: Maury Morrissey on 08-17-2023 Neutrophils/100 WBC (Bld) 86.5 % . [facility] Nitrite Test strip Ql (U)Ord ered By: Maury Morrissey on 08-17-2023 Nitrite Ql (U) Negative Negative [facility] No Panel InformationOrdered By: Maury Morrissey on 08-17-2023 Estimated GFR (CKD-EPI) 9.700 mL/Min [facility] Creatinine Clearance (Chem 10.00 [facility] Nucleated erythrocytes [Pres ence] in Blood by Automated countOrdered By: Maury Morrissey on 08-17-2023 Nucleated RBC Auto Ql (Bld) 0.1 /100{WBC} 0-0.5 [facility] Platelet adequacy [Presence] in Blood by Light microscopyOrdered By: Maury Morrissey on 08-17-2023 Platelets LM Ql (Bld) Normal Normal [facility] Platelet mean volume Auto (B ld) [Entitic vol]Ordered By: Maury Morrissey on 08-17-2023 Platelet mean volume (Bld) [Entitic vol] 8.8 fL 6.3-10.7 [facility] Platelet morphology finding [Identifier] in BloodOrdered By: Maury Morrissey on 08-17-2023 Platelet morphology finding Nom (Bld) Normal Normal [facility] Platelets Auto (Bld) [#/Vol] Ordered By: Maury Morrissey on 08-17-2023 Platelets (Bld) [#/Vol] 298 10*3/uL 150-450 [facility] Polychromasia [Presence] in Blood by Light microscopyOrdered By: Maury Morrissey on 08-17-2023 Polychromasia LM Ql (Bld) Slight [facility] Potassium [Moles/volume] in Serum or PlasmaOrdered By: Maury Morrissey on 08-17-2023 Potassium [Moles/Vol] 4.5 mmol/L 3.5-5.1 [facility] Protein Auto test strip (U) [Mass/Vol]Ordered By: Maury Morrissey on 08-17-2023 Protein (U) [Mass/Vol] Negative Negative [facility] Protein [Mass/volume] in Ser um or PlasmaOrdered By: Maury Morrissey on 08-17-2023 Protein [Mass/Vol] 7.1 g/dL 6.4-8.9 [facility] Prothrombin time (PT)Ordered By: Maury Morrissey on 08-17-2023 PT Coag (PPP) [Time] 12.6 s 9.0-12.9 [facility] Comment on above: A hematocrit value g reater than 55% may lead to inaccurate results in coagulation testing. Patients having hematocrit values >55% require a special collection tube for coagulation studies. Please contact the laboratory at [phone] for redraw instructions. RBC Auto (Bld) [#/Vol]Ordere d By: Maury Morrissey on 08-17-2023 RBC (Bld) [#/Vol] 4.39 10*6/uL 3.60-5.00 [facility] RBC morphologyOrdered By: Arturo Morrissey on 08-17-2023 RBC morphology finding Nom (Bld) N/A [facility] Serum or plasma albumin/glob ulin mass ratioOrdered By: Maury Morrissey on 08-17-2023 Albumin/Globulin [Mass ratio] 0.9 {ratio} [facility] Serum or plasma anion gap de terminationOrdered By: Maury Morrissey on 08-17-2023 Anion gap [Moles/Vol] 23.2 mmol/L 6.0-15.0 [facility] Serum or plasma non-glucuron idated bilirubin measurement (mass/volume)Ordered By: Maury Morrissey on 08-17-2023 Bilirubin.indirect [Mass/Vol] 0.4 mg/dL [facility] Sodium [Moles/volume] in Ser um or PlasmaOrdered By: Maury Morrissey on 08-17-2023 Sodium [Moles/Vol] 143 mmol/L 136-145 [facility] Specific gravity Auto test s trip (U) [Rel density]Ordered By: Maury Morrissey on 08-17-2023 Specific gravity (U) [Rel density] 1.008 1.001-1.03 0 [facility] Squamous epithelial cells de tection in urine sediment by light microscopyOrdered By: Maury Morrissey on 08-17-2023 Epithelial cells.squamous LM Ql (Urine sed) None seen [HPF] 0-2 [facility] Troponin I.cardiac [Mass/vol ume] in Serum or Plasma by Detection limit <= 0.01 ng/Ordered By: Maury Morrissey on 08-17-2023 Troponin I.cardiac DL <= 0.01 ng/mL [Mass/Vol] 38.1 pg/mL 0.0-15.0 [facility] Urea nitrogen [Mass/volume] in Serum or PlasmaOrdered By: Maury Morrissey on 08-17-2023 Urea nitrogen [Mass/Vol] 92 mg/dL 7-25 [facility] Urine bacteria detection by automated methodOrdered By: Maury Morrissey on 08-17-2023 Bacteria Auto Ql (U) 1+ None Seen [facility] Urine clarity by refractomet ry automatedOrdered By: Maury Morrissey on 08-17-2023 Clarity Refractometry automated (U) Clear Clear [facility] Urine glucose measurement by automated test strip (mass/volume)Ordered By: Maury Morrissey on 08-17-2023 Glucose Auto test strip (U) [Mass/Vol] Normal mg/dL Normal [facility] Urine hemoglobin detection b y automated test stripOrdered By: Maury Morrissey on 08-17-2023 Hemoglobin Auto test strip Ql (U) Trace Negative [facility] Urine leukocyte esterase det ection by automated test stripOrdered By: Maury Morrissey on 08-17-2023 Leukocyte esterase Auto test strip Ql (U) Negative Negative [facility] Urobilinogen Auto test strip (U) [Mass/Vol]Ordered By: Maury Morrissey on 08-17-2023 Urobilinogen (U) [Mass/Vol] Normal mg/dL Normal [facility] WBC Auto (Bld) [#/Vol]Ordere d By: Maury Morrissey on 08-17-2023 WBC (Bld) [#/Vol] 29.3 10*3/uL 3.8-11.6 [facility] pH Auto test strip (U)Ordere d By: Maury Morrissey on 08-17-2023 pH (U) 5.5 [pH] 5.0-9.0 [facility] Anisocytosis LM Ql (Bld)Orde red By: Bhavesh Cristobal on 07-14-2023 Anisocytosis Ql (Bld) Marked [facility] Basophils Auto (Bld) [#/Vol] Ordered By: Bhavesh Cristobal on 07-14-2023 Basophils (Bld) [#/Vol] 0.1 10*3/uL 0.0-0.2 [facility] Basophils/100 WBC Auto (Bld) Ordered By: Bhavesh Cristobal on 07-14-2023 Basophils/100 WBC (Bld) 0.3 % . [facility] Calcium [Mass/volume] in Ser um or PlasmaOrdered By: Bhavesh Cristobal on 07-14-2023 Calcium [Mass/Vol] 8.0 mg/dL 8.6-10.3 [facility] Carbon dioxide, total [Moles /volume] in Serum or PlasmaOrdered By: Bhavesh Cristobal on 07-14-2023 CO2 [Moles/Vol] 28.1 mmol/L 21.0-31.0 [facility] Chloride [Moles/volume] in S kaveh or PlasmaOrdered By: Bhavesh Cristobal on 07-14-2023 Chloride [Moles/Vol] 110 mmol/L 98-107 [facility] Creatinine [Mass/volume] in Serum or PlasmaOrdered By: Bhavesh Cristobal on 07-14-2023 Creatinine [Mass/Vol] 1.10 mg/dL 0.60-1.20 [facility] Eosinophils Auto (Bld) [#/Vo l]Ordered By: Bhavesh Cristobal on 07-14-2023 Eosinophils (Bld) [#/Vol] 0.1 10*3/uL 0.0-0.45 [facility] Eosinophils/100 WBC Auto (Bl d)Ordered By: Bhavesh Cristobal on 07-14-2023 Eosinophils/100 WBC (Bld) 0.4 % . [facility] Erythrocyte distribution wid th Auto (RBC) [Ratio]Ordered By: Bhavesh Cristobal on 07-14-2023 Erythrocyte distribution width (RBC) [Ratio] 22.8 % 11.9-15.3 [facility] Glucose Glucometer (BldC) [M ass/Vol]Ordered By: Jolanta Mckenzie on 07-14-2023 Glucose [Mass/Vol] 80 mg/dL [facility] Comment on above: Random Glucose Refer ence Range is dependent on time and content of last meal. Glucose of more than 200 mg/dL in a nonstressed, ambulatory subject supports the diagnosis of Diabetes Mellitus. Glucose [Mass/volume] in Ser um or PlasmaOrdered By: Bhavesh Cristobal on 07-14-2023 Glucose [Mass/Vol] 84 mg/dL 70-100 [facility] Comment on above: ADA recommended refe rence rangeRandom Glucose Reference Range is dependent on time and content of last meal. Glucose of more than 200 mg/dL in a nonstressed, ambulatory subject supports the diagnosis of Diabetes Mellitus. Hematocrit Auto (Bld) [Volum e fraction]Ordered By: Bhavesh Cristobal on 07-14-2023 Hematocrit (Bld) [Volume fraction] 33.6 % 34.0-46.4 [facility] Hemoglobin [Mass/volume] in BloodOrdered By: Bhavesh Cristobal on 07-14-2023 Hemoglobin (Bld) [Mass/Vol] 10.5 g/dL 11.8-15.4 [facility] Hypochromia LM Ql (Bld)Order ed By: Bhavesh Cristobal on 07-14-2023 Hypochromia Ql (Bld) Slight [facility] Leukocytes [#/volume] correc juma for nucleated erythrocytes in Blood by Automated counOrdered By: Bhavesh Cristobal on 07-14-2023 WBC corrected for nucl RBC Auto (Bld) [#/Vol] 19.3 10*3/uL 3.8-11.6 [facility] Lymphocytes Auto (Bld) [#/Vo l]Ordered By: Bhavesh Cristobal on 07-14-2023 Lymphocytes (Bld) [#/Vol] 4.3 10*3/uL 1.00-4.8 [facility] Lymphocytes/100 WBC Auto (Bl d)Ordered By: Bhavesh Cristobal on 07-14-2023 Lymphocytes/100 WBC (Bld) 22.1 % . [facility] MCH Auto (RBC) [Entitic mass ]Ordered By: Bhavesh Cristobal on 07-14-2023 MCH (RBC) [Entitic mass] 26.2 pg 24.7-34.3 [facility] MCHC Auto (RBC) [Mass/Vol]Or dered By: Bhavesh Cristobal on 07-14-2023 MCHC (RBC) [Mass/Vol] 31.2 g/dL 32.0-35.0 [facility] MCV Auto (RBC) [Entitic vol] Ordered By: Bhavesh Cristobal on 07-14-2023 MCV (RBC) [Entitic vol] 84.0 fL 80-100 [facility] [facility] Monocytes Auto (Bld) [#/Vol] Ordered By: Bhavesh Cristobal on 07-14-2023 Monocytes (Bld) [#/Vol] 1.4 10*3/uL 0.0-0.8 [facility] Monocytes/100 WBC Auto (Bld) Ordered By: Bhavesh Cristobal on 07-14-2023 Monocytes/100 WBC (Bld) 7.3 % . [facility] Neutrophils Auto (Bld) [#/Vo l]Ordered By: Bhavesh Cristobal on 07-14-2023 Neutrophils (Bld) [#/Vol] 13.5 10*3/uL 1.8-7.7 [facility] Neutrophils/100 WBC Auto (Bl d)Ordered By: Bhavesh Cristobal on 07-14-2023 Neutrophils/100 WBC (Bld) 69.9 % . [facility] No Panel InformationOrdered By: Bhavesh Cristobal on 07-14-2023 Estimated GFR (CKD-EPI) 51.753 mL/Min [facility] Creatinine Clearance (Chem 42.83 [facility] Nucleated erythrocytes [Pres ence] in Blood by Automated countOrdered By: Bhavesh Cristobal on 07-14-2023 Nucleated RBC Auto Ql (Bld) 0.1 /100{WBC} 0-0.5 [facility] Platelet adequacy [Presence] in Blood by Light microscopyOrdered By: Bhavesh Cristobal on 07-14-2023 Platelets LM Ql (Bld) Normal Normal [facility] Platelet mean volume Auto (B ld) [Entitic vol]Ordered By: Bhavesh Cristobal on 07-14-2023 Platelet mean volume (Bld) [Entitic vol] 7.9 fL 6.3-10.7 [facility] Platelet morphology finding [Identifier] in BloodOrdered By: Bhavesh Cristobal on 07-14-2023 Platelet morphology finding Nom (Bld) Normal Normal [facility] Platelets Auto (Bld) [#/Vol] Ordered By: Bhavesh Cristobal on 07-14-2023 Platelets (Bld) [#/Vol] 238 10*3/uL 150-450 [facility] Polychromasia [Presence] in Blood by Light microscopyOrdered By: Bhavesh Cristobal on 07-14-2023 Polychromasia LM Ql (Bld) Slight [facility] Potassium [Moles/volume] in Serum or PlasmaOrdered By: Bhavesh Cristobal on 07-14-2023 Potassium [Moles/Vol] 4.2 mmol/L 3.5-5.1 [facility] RBC Auto (Bld) [#/Vol]Ordere d By: Bhavesh Cristobal on 07-14-2023 RBC (Bld) [#/Vol] 4.00 10*6/uL 3.60-5.00 [facility] RBC morphologyOrdered By: Wilber Cristobal on 07-14-2023 RBC morphology finding Nom (Bld) N/A [facility] Serum or plasma anion gap de terminationOrdered By: Bhavesh Cristobal on 07-14-2023 Anion gap [Moles/Vol] 9.1 mmol/L 6.0-15.0 [facility] Sodium [Moles/volume] in Ser um or PlasmaOrdered By: Bhavesh Cristobal on 07-14-2023 Sodium [Moles/Vol] 143 mmol/L 136-145 [facility] Urea nitrogen [Mass/volume] in Serum or PlasmaOrdered By: Bhavesh Cristobal on 07-14-2023 Urea nitrogen [Mass/Vol] 24 mg/dL 7-25 [facility] WBC Auto (Bld) [#/Vol]Ordere d By: Bhavesh Cristobal on 07-14-2023 WBC (Bld) [#/Vol] 19.3 10*3/uL 3.8-11.6 [facility] Alanine aminotransferase [En zymatic activity/volume] in Serum or PlasmaOrdered By: Jolanta Mckenzie on 07-12-2023 ALT [Catalytic activity/Vol] 16 U/L 7-52 [facility] Albumin [Mass/volume] in Ser um or Plasma by Bromocresol green (BCG) dye binding methoOrdered By: Jolanta Mckenzie on 07-12-2023 Albumin BCG dye [Mass/Vol] 3.0 g/dL 3.5-5.7 [facility] Alkaline phosphatase [Enzyma tic activity/volume] in Serum or PlasmaOrdered By: Jolanta Mckenzie on 07-12-2023 ALP [Catalytic activity/Vol] 45 U/L 34-104 [facility] Aspartate aminotransferase [ Enzymatic activity/volume] in Serum or PlasmaOrdered By: Jolanta Mckenzie on 07-12-2023 AST [Catalytic activity/Vol] 14 U/L 13-39 [facility] Bilirubin.total [Mass/volume ] in Serum or PlasmaOrdered By: Jolanta Mckenzie on 07-12-2023 Bilirubin [Mass/Vol] 0.3 mg/dL 0.3-1.0 [facility] Globulin Calc (S) [Mass/Vol] Ordered By: Jolanta Mckenzie on 07-12-2023 Globulin (S) [Mass/Vol] 2.7 g/dL [facility] Protein [Mass/volume] in Ser um or PlasmaOrdered By: Jolanta Mckenzie on 07-12-2023 Protein [Mass/Vol] 5.7 g/dL 6.4-8.9 [facility] Serum or plasma albumin/glob ulin mass ratioOrdered By: Jolanta Mckenzie on 07-12-2023 Albumin/Globulin [Mass ratio] 1.1 {ratio} [facility] Acanthocytes [Presence] in B lood by Light microscopyOrdered By: Marshall Dominguez on 07-10-2023 Acanthocytes LM Ql (Bld) Slight [facility] Aerobic cultureOrdered By: Viki Mckenzie on 07-10-2023 Bacteria identified Aer cx Nom (Unsp spec) [facility] Anisocytosis LM Ql (Bld)Orde red By: Marshall Dominguez on 07-10-2023 Anisocytosis Ql (Bld) Moderate [facility] Automated erythrocytes count in urine sediment (number/area)Ordered By: Marshall Dominguez on 07-10-2023 RBC Auto (Urine sed) [#/Area] 3-4 [HPF] 0-4 [facility] Automated leukocytes count i n urine sediment (number/area)Ordered By: Marshall Dominguez on 07-10-2023 WBC Auto (Urine sed) [#/Area] Innumerable [HPF] 0-4 [facility] Bacterial blood cultureOrder ed By: Marshall Dominguez on 07-10-2023 Bacteria identified Cx Nom (Bld) NO GROWTH 5 DAYS [facility] Basophils Auto (Bld) [#/Vol] Ordered By: Marshall Dominguez on 07-10-2023 Basophils (Bld) [#/Vol] 0.0 10*3/uL 0.0-0.2 [facility] Basophils/100 WBC Auto (Bld) Ordered By: Marshall Dominguez on 07-10-2023 Basophils/100 WBC (Bld) 0.2 % . [facility] Bilirubin Test strip Ql (U)O rdered By: Marshall Dominguez on 07-10-2023 Bilirubin Ql (U) Negative Negative [facility] Calcium [Mass/volume] in Ser um or PlasmaOrdered By: Marshall Dominguez on 07-10-2023 Calcium [Mass/Vol] 8.9 mg/dL 8.6-10.3 [facility] Carbon dioxide, total [Moles /volume] in Serum or PlasmaOrdered By: Marshall Dominguez on 07-10-2023 CO2 [Moles/Vol] 32.4 mmol/L 21.0-31.0 [facility] Chloride [Moles/volume] in S kaveh or PlasmaOrdered By: Marshall Dominguez on 07-10-2023 Chloride [Moles/Vol] 105 mmol/L 98-107 [facility] Color Auto (U)Ordered By: Ruslan Dominguez on 07-10-2023 Color (U) Yellow Yellow [facility] Creatinine [Mass/volume] in Serum or PlasmaOrdered By: Marshall Dominguez on 07-10-2023 Creatinine [Mass/Vol] 1.56 mg/dL 0.60-1.20 [facility] Eosinophils Auto (Bld) [#/Vo l]Ordered By: Marshall Dominguez on 07-10-2023 Eosinophils (Bld) [#/Vol] 0.1 10*3/uL 0.0-0.45 [facility] Eosinophils/100 WBC Auto (Bl d)Ordered By: Marshall Dominguez on 07-10-2023 Eosinophils/100 WBC (Bld) 0.4 % . [facility] Erythrocyte distribution wid th Auto (RBC) [Ratio]Ordered By: Marshall Dominguez on 07-10-2023 Erythrocyte distribution width (RBC) [Ratio] 22.2 % 11.9-15.3 [facility] Glucose [Mass/volume] in Ser um or PlasmaOrdered By: Marshall Dominguez on 07-10-2023 Glucose [Mass/Vol] 83 mg/dL 70-100 [facility] Comment on above: ADA recommended refe rence rangeRandom Glucose Reference Range is dependent on time and content of last meal. Glucose of more than 200 mg/dL in a nonstressed, ambulatory subject supports the diagnosis of Diabetes Mellitus. Gram stain for investigation of transfusion reactionOrdered By: Jolanta Mckenzie on 07-10-2023 Microscopic observation Gram stain Nom (Unsp spec) [facility] Hematocrit Auto (Bld) [Volum e fraction]Ordered By: Marshall Dominguez on 07-10-2023 Hematocrit (Bld) [Volume fraction] 34.4 % 34.0-46.4 [facility] Hemoglobin [Mass/volume] in BloodOrdered By: Marshall Dominguez on 07-10-2023 Hemoglobin (Bld) [Mass/Vol] 11.0 g/dL 11.8-15.4 [facility] Hypochromia LM Ql (Bld)Order ed By: Marshall Dominguez on 07-10-2023 Hypochromia Ql (Bld) Slight [facility] INR in Platelet poor plasma by Coagulation assayOrdered By: Marshall Dominguez on 07-10-2023 INR Coag (PPP) [Relative time] 0.9 {INR} [facility] Comment on above: INR Therapeutic Rang e A) Pre- and Peroperative OAT started two weeks before surgery. NOT HIP SURGERY: 1.5 - 2.5 HIP SURGERY: 2 - 3B) Primary and secondary prevention of venous THROMBOSIS: 2 - 3C) Active venous thrombosis, pulmonary embolismand prevention of recurrent venous thrombosis: 2 - 3D) Prevention of arterial thromboembolismincluding patients with mechanical heart valves: 3 - 4.5 Ketones Auto test strip (U) [Mass/Vol]Ordered By: Marshall Dominguez on 07-10-2023 Ketones (U) [Mass/Vol] Negative Negative Fi [facility] Laboratory - UrinalysisOrder ed By: Marshall Dominguez on 07-10-2023 Hyaline casts LM Ql (Urine sed) 0-8 [LPF] 0-8 [facility] Lactate [Moles/volume] in Se rum or PlasmaOrdered By: Marshall Dominguez on 07-10-2023 Lactate [Moles/Vol] 1.6 mmol/L 0.5-2.2 [facility] Leukocytes [#/volume] correc juma for nucleated erythrocytes in Blood by Automated counOrdered By: Marshall Dominguez on 07-10-2023 WBC corrected for nucl RBC Auto (Bld) [#/Vol] 21.3 10*3/uL 3.8-11.6 [facility] Lymphocytes Auto (Bld) [#/Vo l]Ordered By: Marshall Dominguez on 07-10-2023 Lymphocytes (Bld) [#/Vol] 6.7 10*3/uL 1.00-4.8 [facility] Lymphocytes/100 WBC Auto (Bl d)Ordered By: Marshall Dominguez on 07-10-2023 Lymphocytes/100 WBC (Bld) 31.5 % . [facility] MCH Auto (RBC) [Entitic mass ]Ordered By: Marshall Dominguez on 07-10-2023 MCH (RBC) [Entitic mass] 26.5 pg 24.7-34.3 [facility] MCHC Auto (RBC) [Mass/Vol]Or dered By: Marshall Dominguez on 07-10-2023 MCHC (RBC) [Mass/Vol] 32.0 g/dL 32.0-35.0 [facility] MCV Auto (RBC) [Entitic vol] Ordered By: Marshall Dominguez on 07-10-2023 MCV (RBC) [Entitic vol] 82.7 fL 80-100 [facility] Microcytes LM Ql (Bld)Ordere d By: Marshall Dominguez on 07-10-2023 Microcytes Ql (Bld) Moderate [facility] Monocytes Auto (Bld) [#/Vol] Ordered By: Marshall Dominguez on 07-10-2023 Monocytes (Bld) [#/Vol] 1.4 10*3/uL 0.0-0.8 [facility] Monocytes/100 WBC Auto (Bld) Ordered By: Marshall Dominguez on 07-10-2023 Monocytes/100 WBC (Bld) 6.5 % . [facility] Natriuretic peptide B [Mass/ Vol]Ordered By: Marshall Dominguez on 07-10-2023 Natriuretic peptide B (Bld) [Mass/Vol] 54.0 pg/mL 5-100 [facility] Neutrophils Auto (Bld) [#/Vo l]Ordered By: Marshall Dominguez on 07-10-2023 Neutrophils (Bld) [#/Vol] 13.1 10*3/uL 1.8-7.7 [facility] Neutrophils/100 WBC Auto (Bl d)Ordered By: Marshall Dominguez on 07-10-2023 Neutrophils/100 WBC (Bld) 61.4 % . [facility] Nitrite Test strip Ql (U)Ord ered By: Marshall Dominguez on 07-10-2023 Nitrite Ql (U) Positive Negative [facility] No Panel InformationOrdered By: Marshall Dominguez on 07-10-2023 Estimated GFR (CKD-EPI) 34.030 mL/Min [facility] Creatinine Clearance (Chem N/A [facility] Nucleated erythrocytes [Pres ence] in Blood by Automated countOrdered By: Marshall Dominguez on 07-10-2023 Nucleated RBC Auto Ql (Bld) 0.1 /100{WBC} 0-0.5 [facility] Ovalocyte detectionOrdered B y: Marshall Dominguez on 07-10-2023 Ovalocytes LM Ql (Bld) Slight [facility] Platelet adequacy [Presence] in Blood by Light microscopyOrdered By: Marshall Dominguez on 07-10-2023 Platelets LM Ql (Bld) Normal Normal [facility] Platelet mean volume Auto (B ld) [Entitic vol]Ordered By: Marshall Dominguez on 07-10-2023 Platelet mean volume (Bld) [Entitic vol] 8.0 fL 6.3-10.7 [facility] Platelet morphology finding [Identifier] in BloodOrdered By: Marshall Dominguez on 07-10-2023 Platelet morphology finding Nom (Bld) N/A [facility] Platelets Auto (Bld) [#/Vol] Ordered By: Marshall Dominguez on 07-10-2023 Platelets (Bld) [#/Vol] 250 10*3/uL 150-450 [facility] Poikilocytosis [Presence] in Blood by Light microscopyOrdered By: Marshall Dominguez on 07-10-2023 Poikilocytosis LM Ql (Bld) Slight [facility] Polychromasia [Presence] in Blood by Light microscopyOrdered By: Marshall Dominguez on 07-10-2023 Polychromasia LM Ql (Bld) Slight [facility] Potassium [Moles/volume] in Serum or PlasmaOrdered By: Marshall Dominguez on 07-10-2023 Potassium [Moles/Vol] 3.9 mmol/L 3.5-5.1 [facility] Protein Auto test strip (U) [Mass/Vol]Ordered By: Marshall Dominguez on 07-10-2023 Protein (U) [Mass/Vol] 30 mg/dL Negative [facility] Prothrombin time (PT)Ordered By: Marshall Dominguez on 07-10-2023 PT Coag (PPP) [Time] 10.6 s 9.0-12.9 [facility] Comment on above: A hematocrit value g reater than 55% may lead to inaccurate results in coagulation testing. Patients having hematocrit values >55% require a special collection tube for coagulation studies. Please contact the laboratory at [phone] for redraw instructions. RBC Auto (Bld) [#/Vol]Ordere d By: Marshall Dominguez on 07-10-2023 RBC (Bld) [#/Vol] 4.17 10*6/uL 3.60-5.00 [facility] RBC morphologyOrdered By: Ruslan Dominguez on 07-10-2023 RBC morphology finding Nom (Bld) N/A [facility] Serum or plasma anion gap de terminationOrdered By: Marshall Dominguez on 07-10-2023 Anion gap [Moles/Vol] 9.5 mmol/L 6.0-15.0 [facility] Sodium [Moles/volume] in Ser um or PlasmaOrdered By: Marshall Dominguez on 07-10-2023 Sodium [Moles/Vol] 143 mmol/L 136-145 [facility] Specific gravity Auto test s trip (U) [Rel density]Ordered By: Marshall Dominguez on 07-10-2023 Specific gravity (U) [Rel density] 1.022 1.001-1.03 0 [facility] Squamous epithelial cells de tection in urine sediment by light microscopyOrdered By: Marshall Dominguez on 07-10-2023 Epithelial cells.squamous LM Ql (Urine sed) 1-2 [HPF] 0-2 [facility] Teardrop cell detectionOrder ed By: Marshall Dominguez on 07-10-2023 Dacrocytes LM Ql (Bld) Slight [facility] Troponin I.cardiac [Mass/vol ume] in Serum or Plasma by Detection limit <= 0.01 ng/Ordered By: Marshall Dominguez on 07-10-2023 Troponin I.cardiac DL <= 0.01 ng/mL [Mass/Vol] 11.7 pg/mL 0.0-15.0 [facility] Urea nitrogen [Mass/volume] in Serum or PlasmaOrdered By: Marshall Dominguez on 07-10-2023 Urea nitrogen [Mass/Vol] 36 mg/dL 7-25 [facility] Urine bacteria detection by automated methodOrdered By: Marshall Dominguez on 07-10-2023 Bacteria Auto Ql (U) 2+ None Seen [facility] Urine clarity by refractomet ry automatedOrdered By: Marshall Dominguez on 07-10-2023 Clarity Refractometry automated (U) Cloudy Clear [facility] Urine culture routineOrdered By: Marshall Dominguez on 07-10-2023 Bacteria identified Cx Nom (U) Proteus mirabilis [facility] Urine glucose measurement by automated test strip (mass/volume)Ordered By: Marshall Dominguez on 07-10-2023 Glucose Auto test strip (U) [Mass/Vol] Normal mg/dL Normal [facility] Urine hemoglobin detection b y automated test stripOrdered By: Marshall Dominguez on 07-10-2023 Hemoglobin Auto test strip Ql (U) Negative Negative [facility] Urine leukocyte esterase det ection by automated test stripOrdered By: Marshall Dominguez on 07-10-2023 Leukocyte esterase Auto test strip Ql (U) 4+ Negative [facility] Urobilinogen Auto test strip (U) [Mass/Vol]Ordered By: Marshall Dominguez on 07-10-2023 Urobilinogen (U) [Mass/Vol] Normal mg/dL Normal [facility] WBC Auto (Bld) [#/Vol]Ordere d By: Marshall Dominguez on 07-10-2023 WBC (Bld) [#/Vol] 21.3 10*3/uL 3.8-11.6 [facility] pH Auto test strip (U)Ordere d By: Marshall Dominguez on 07-10-2023 pH (U) 8.5 [pH] 5.0-9.0 [facility] Alanine aminotransferase [En zymatic activity/volume] in Serum or PlasmaOrdered By: Kadie Bullimore on 06-17-2023 ALT [Catalytic activity/Vol] 14 U/L 7-52 [facility] Albumin [Mass/volume] in Ser um or Plasma by Bromocresol green (BCG) dye binding methoOrdered By: Kadie Bullimore on 06-17-2023 Albumin BCG dye [Mass/Vol] 3.4 g/dL 3.5-5.7 [facility] Alkaline phosphatase [Enzyma tic activity/volume] in Serum or PlasmaOrdered By: Kadie Bullimore on 06-17-2023 ALP [Catalytic activity/Vol] 48 U/L 34-104 [facility] Aspartate aminotransferase [ Enzymatic activity/volume] in Serum or PlasmaOrdered By: Kadie Bullimore on 06-17-2023 AST [Catalytic activity/Vol] 15 U/L 13-39 [facility] Basophils Auto (Bld) [#/Vol] Ordered By: Kadie Bullimore on 06-17-2023 Basophils (Bld) [#/Vol] 0.1 10*3/uL 0.0-0.2 [facility] Basophils/100 WBC Auto (Bld) Ordered By: Kadie Bullimore on 06-17-2023 Basophils/100 WBC (Bld) 0.3 % . [facility] Bilirubin.total [Mass/volume ] in Serum or PlasmaOrdered By: Kadie Bullimore on 06-17-2023 Bilirubin [Mass/Vol] 0.4 mg/dL 0.3-1.0 [facility] Calcium [Mass/volume] in Ser um or PlasmaOrdered By: Kadie Bullimore on 06-17-2023 Calcium [Mass/Vol] 9.5 mg/dL 8.6-10.3 [facility] Carbon dioxide, total [Moles /volume] in Serum or PlasmaOrdered By: Kadie Bullimore on 06-17-2023 CO2 [Moles/Vol] 34.6 mmol/L 21.0-31.0 [facility] Chloride [Moles/volume] in S kaveh or PlasmaOrdered By: Kadie Bullimore on 06-17-2023 Chloride [Moles/Vol] 104 mmol/L 98-107 [facility] Creatinine [Mass/volume] in Serum or PlasmaOrdered By: Kadie Bullimore on 06-17-2023 Creatinine [Mass/Vol] 1.24 mg/dL 0.60-1.20 [facility] Eosinophils Auto (Bld) [#/Vo l]Ordered By: Kadie Bullimore on 06-17-2023 Eosinophils (Bld) [#/Vol] 0.0 10*3/uL 0.0-0.45 [facility] Eosinophils/100 WBC Auto (Bl d)Ordered By: Kadie Bullimore on 06-17-2023 Eosinophils/100 WBC (Bld) 0.2 % . [facility] Erythrocyte distribution wid th Auto (RBC) [Ratio]Ordered By: Kadie Bullimore on 06-17-2023 Erythrocyte distribution width (RBC) [Ratio] 21.5 % 11.9-15.3 [facility] Globulin Calc (S) [Mass/Vol] Ordered By: Kadie Bullimore on 06-17-2023 Globulin (S) [Mass/Vol] 2.9 g/dL [facility] Glucose [Mass/volume] in Ser um or PlasmaOrdered By: Kadie Jones on 06-17-2023 Glucose [Mass/Vol] 103 mg/dL 70-100 [facility] Comment on above: ADA recommended refe rence rangeRandom Glucose Reference Range is dependent on time and content of last meal. Glucose of more than 200 mg/dL in a nonstressed, ambulatory subject supports the diagnosis of Diabetes Mellitus. Hematocrit Auto (Bld) [Volum e fraction]Ordered By: Kadie Jones on 06-17-2023 Hematocrit (Bld) [Volume fraction] 34.6 % 34.0-46.4 [facility] Hemoglobin [Mass/volume] in BloodOrdered By: Kadie Jones on 06-17-2023 Hemoglobin (Bld) [Mass/Vol] 10.9 g/dL 11.8-15.4 [facility] Leukocytes [#/volume] correc juma for nucleated erythrocytes in Blood by Automated counOrdered By: Kadie Jones on 06-17-2023 WBC corrected for nucl RBC Auto (Bld) [#/Vol] 17.4 10*3/uL 3.8-11.6 [facility] Lymphocytes Auto (Bld) [#/Vo l]Ordered By: Kadie Jones on 06-17-2023 Lymphocytes (Bld) [#/Vol] 3.7 10*3/uL 1.00-4.8 [facility] Lymphocytes/100 WBC Auto (Bl d)Ordered By: Kadie Jones on 06-17-2023 Lymphocytes/100 WBC (Bld) 21.2 % . [facility] MCH Auto (RBC) [Entitic mass ]Ordered By: Kadie Jones on 06-17-2023 MCH (RBC) [Entitic mass] 24.8 pg 24.7-34.3 [facility] MCHC Auto (RBC) [Mass/Vol]Or dered By: Kadie Hungimore on 06-17-2023 MCHC (RBC) [Mass/Vol] 31.5 g/dL 32.0-35.0 [facility] MCV Auto (RBC) [Entitic vol] Ordered By: Kadie Jones on 06-17-2023 MCV (RBC) [Entitic vol] 78.7 fL 80-100 [facility] Monocyte distribution width [Entitic volume] in Blood by AutomatedOrdered By: Kadie Bullimore on 06-17-2023 Monocyte distribution width Auto (Bld) [Entitic vol] 20.88 % 0.00-20.00 [facility] Comment on above: For adults in ED, MD W > 20.0 may be associated with a higher risk of sepsis during the first 12 hrs of hospital admission Monocytes Auto (Bld) [#/Vol] Ordered By: Kadie Bullimore on 06-17-2023 Monocytes (Bld) [#/Vol] 1.1 10*3/uL 0.0-0.8 [facility] Monocytes/100 WBC Auto (Bld) Ordered By: Kadie Bullimore on 06-17-2023 Monocytes/100 WBC (Bld) 6.6 % . [facility] Natriuretic peptide B [Mass/ Vol]Ordered By: Kadie Bullimore on 06-17-2023 Natriuretic peptide B (Bld) [Mass/Vol] 109.0 pg/mL 5-100 [facility] Neutrophils Auto (Bld) [#/Vo l]Ordered By: Kadie Bullimore on 06-17-2023 Neutrophils (Bld) [#/Vol] 12.4 10*3/uL 1.8-7.7 [facility] Neutrophils/100 WBC Auto (Bl d)Ordered By: Kadie Hungimore on 06-17-2023 Neutrophils/100 WBC (Bld) 71.7 % . [facility] No Panel InformationOrdered By: Kadie Bullimore on 06-17-2023 Estimated GFR (CKD-EPI) 44.823 mL/Min [facility] Creatinine Clearance (Chem 35.64 [facility] Nucleated erythrocytes [Pres ence] in Blood by Automated countOrdered By: Kadie Hnugimore on 06-17-2023 Nucleated RBC Auto Ql (Bld) 0.1 /100{WBC} 0-0.5 [facility] Platelet mean volume Auto (B ld) [Entitic vol]Ordered By: Kadie Bullimore on 06-17-2023 Platelet mean volume (Bld) [Entitic vol] 7.4 fL 6.3-10.7 [facility] [facility] Platelets Auto (Bld) [#/Vol] Ordered By: Kadie Bullimore on 06-17-2023 Platelets (Bld) [#/Vol] 257 10*3/uL 150-450 [facility] Potassium [Moles/volume] in Serum or PlasmaOrdered By: Kadie Bullimore on 06-17-2023 Potassium [Moles/Vol] 3.7 mmol/L 3.5-5.1 [facility] Protein [Mass/volume] in Ser um or PlasmaOrdered By: Kadie Bullimore on 06-17-2023 Protein [Mass/Vol] 6.3 g/dL 6.4-8.9 [facility] RBC Auto (Bld) [#/Vol]Ordere d By: Kadie Bullimore on 06-17-2023 RBC (Bld) [#/Vol] 4.39 10*6/uL 3.60-5.00 [facility] Serum or plasma albumin/glob ulin mass ratioOrdered By: Kadie Bullimore on 06-17-2023 Albumin/Globulin [Mass ratio] 1.2 {ratio} [facility] Serum or plasma anion gap de terminationOrdered By: Kadie Bullimore on 06-17-2023 Anion gap [Moles/Vol] 8.1 mmol/L 6.0-15.0 [facility] Sodium [Moles/volume] in Ser um or PlasmaOrdered By: Kadie Bullimore on 06-17-2023 Sodium [Moles/Vol] 143 mmol/L 136-145 [facility] Troponin I.cardiac [Mass/vol ume] in Serum or Plasma by Detection limit <= 0.01 ng/Ordered By: Kadie Bullimore on 06-17-2023 Troponin I.cardiac DL <= 0.01 ng/mL [Mass/Vol] 9.5 pg/mL 0.0-15.0 [facility] Urea nitrogen [Mass/volume] in Serum or PlasmaOrdered By: Kadie Bullimore on 06-17-2023 Urea nitrogen [Mass/Vol] 25 mg/dL 7-25 [facility] WBC Auto (Bld) [#/Vol]Ordere d By: Kadie Jones on 06-17-2023 WBC (Bld) [#/Vol] 17.4 10*3/uL 3.8-11.6 [facility] Anisocytosis LM Ql (Bld)Orde red By: Carla Hagan on 12-31-2022 Anisocytosis Ql (Bld) Moderate [facility] Basophils Auto (Bld) [#/Vol] Ordered By: Carla Hagan on 12-31-2022 Basophils (Bld) [#/Vol] N/A [facility] Basophils/100 WBC Auto (Bld) Ordered By: Carla Hagan on 12-31-2022 Basophils/100 WBC (Bld) N/A [facility] Basophils/100 WBC Manual cnt (Bld)Ordered By: Carla Hagan on 12-31-2022 Basophils/100 WBC (Bld) 1 % 0-2 [facility] Calcium [Mass/volume] in Ser um or PlasmaOrdered By: Carla Hagan on 12-31-2022 Calcium [Mass/Vol] 8.6 mg/dL 8.2-10.2 [facility] Carbon dioxide, total [Moles /volume] in Serum or PlasmaOrdered By: Carla Hagan on 12-31-2022 CO2 [Moles/Vol] 26.2 mmol/L 22.0-30.0 [facility] Chloride [Moles/volume] in S kaveh or PlasmaOrdered By: Carla Hagan on 12-31-2022 Chloride [Moles/Vol] 99 mmol/L 95-114 [facility] Creatinine and Glomerular fi ltration rate.predicted panel (S/P/Bld)Ordered By: Carla Hagan on 12-31-2022 Creatinine [Mass/Vol] 0.99 mg/dL 0.44-1.03 [facility] Eosinophils Auto (Bld) [#/Vo l]Ordered By: Carla Hagan on 12-31-2022 Eosinophils (Bld) [#/Vol] N/A [facility] Eosinophils/100 WBC Auto (Bl d)Ordered By: Carla Hagan on 12-31-2022 Eosinophils/100 WBC (Bld) N/A [facility] Eosinophils/100 WBC Manual c nt (Bld)Ordered By: Carla Hagan on 12-31-2022 Eosinophils/100 WBC (Bld) 1 % 1-3 [facility] Erythrocyte distribution wid th Auto (RBC) [Ratio]Ordered By: Carla Hagan on 12-31-2022 Erythrocyte distribution width (RBC) [Ratio] 15.7 % 11.9-15.3 [facility] Estimated glomerular filtrat ion rate (GFR) non- AmericanOrdered By: Carla Hagan on 12-31-2022 GFR/1.73 sq M.predicted among non-blacks MDRD (S/P/Bld) [Vol rate/Area] 54 mL/Min [facility] Giant platelets/100 leukocyt es [Ratio] in Blood by Manual countOrdered By: Carla Hagan on 12-31-2022 Giant platelets/100 WBC Manual cnt (Bld) [Ratio] 1 /100{WBC} [facility] Glucose [Mass/volume] in Ser um or PlasmaOrdered By: Carla Hagan on 12-31-2022 Glucose [Mass/Vol] 115 mg/dL 70-100 [facility] Comment on above: ADA recommended refe rence rangeRandom Glucose Reference Range is dependent on time and content of last meal. Glucose of more than 200 mg/dL in a nonstressed, ambulatory subject supports the diagnosis of Diabetes Mellitus. Helmet cell detectionOrdered By: Carla Hagan on 12-31-2022 Helmet cells LM Ql (Bld) Slight [facility] Hematocrit Auto (Bld) [Volum e fraction]Ordered By: Carla Hagan on 12-31-2022 Hematocrit (Bld) [Volume fraction] 30.2 % 34.0-46.4 [facility] Hemoglobin [Mass/volume] in BloodOrdered By: Carla Hagan on 12-31-2022 Hemoglobin (Bld) [Mass/Vol] 9.8 g/dL 11.8-15.4 [facility] Hypochromia LM Ql (Bld)Order ed By: Carla Hagan on 12-31-2022 Hypochromia Ql (Bld) Slight [facility] Laboratory - Chemistry and C hemistry - challengeOrdered By: Carla Hagan on 12-31-2022 Magnesium [Mass/Vol] 1.5 mg/dL 1.6-2.6 [facility] Leukocytes [#/volume] correc juma for nucleated erythrocytes in Blood by Automated counOrdered By: Carla Hagan on 12-31-2022 WBC corrected for nucl RBC Auto (Bld) [#/Vol] 13.4 10*3/uL 3.8-11.6 [facility] Lymphocytes Auto (Bld) [#/Vo l]Ordered By: Carla Hagan on 12-31-2022 Lymphocytes (Bld) [#/Vol] N/A [facility] Lymphocytes/100 WBC Auto (Bl d)Ordered By: Carla Hagan on 12-31-2022 Lymphocytes/100 WBC (Bld) N/A [facility] Lymphocytes/100 WBC Manual c nt (Bld)Ordered By: Carla Hagan on 12-31-2022 Lymphocytes/100 WBC (Bld) 8 % 18-42 [facility] MCH Auto (RBC) [Entitic mass ]Ordered By: Carla Hagan on 12-31-2022 MCH (RBC) [Entitic mass] 25.3 pg 24.7-34.3 [facility] MCHC Auto (RBC) [Mass/Vol]Or dered By: Carla Hagan on 12-31-2022 MCHC (RBC) [Mass/Vol] 32.3 g/dL 32.0-35.0 [facility] MCV Auto (RBC) [Entitic vol] Ordered By: Carla Hagan on 12-31-2022 MCV (RBC) [Entitic vol] 78.2 fL 80-100 [facility] Microcytes LM Ql (Bld)Ordere d By: Carla Hagan on 12-31-2022 Microcytes Ql (Bld) Moderate [facility] Monocytes Auto (Bld) [#/Vol] Ordered By: Carla Hagan on 12-31-2022 Monocytes (Bld) [#/Vol] N/A [facility] Monocytes/100 WBC Auto (Bld) Ordered By: Carla Hagan on 12-31-2022 Monocytes/100 WBC (Bld) N/A [facility] Monocytes/100 WBC Manual cnt (Bld)Ordered By: Carla Hagan on 12-31-2022 Monocytes/100 WBC (Bld) 5 % 2-11 [facility] Neutrophils Auto (Bld) [#/Vo l]Ordered By: Carla Hagan on 12-31-2022 Neutrophils (Bld) [#/Vol] N/A [facility] Neutrophils/100 WBC Auto (Bl d)Ordered By: Carla Hagan on 12-31-2022 Neutrophils/100 WBC (Bld) N/A [facility] No Panel InformationOrdered By: Carla Hagan on 12-31-2022 Estimated GFR () > 60 mL/Min [facility] Comment on above: GFR estimated refere nce range: According to KDOQI guidelines, <60 ml/min/1.73m2 is sufficient to diagnose a patient with chronic kidney disease. Pharmacy Creatinine Clearance (Chem 45.60 [facility] Nucleated erythrocytes [Pres ence] in Blood by Automated countOrdered By: Carla Hagan on 12-31-2022 Nucleated RBC Auto Ql (Bld) N/A [facility] Phosphate [Mass/volume] in S kaveh or PlasmaOrdered By: Carla Hagan on 12-31-2022 Phosphate [Mass/Vol] 3.5 mg/dL 2.5-4.6 [facility] Platelet adequacy [Presence] in Blood by Light microscopyOrdered By: Carla Hagan on 12-31-2022 Platelets LM Ql (Bld) Normal Normal [facility] Platelet mean volume Auto (B ld) [Entitic vol]Ordered By: Carla Hagan on 12-31-2022 Platelet mean volume (Bld) [Entitic vol] 6.6 fL 6.3-10.7 [facility] Platelet morphology finding [Identifier] in BloodOrdered By: Carla Hagan on 12-31-2022 Platelet morphology finding Nom (Bld) Normal Normal [facility] Platelets Auto (Bld) [#/Vol] Ordered By: Carla Hagan on 12-31-2022 Platelets (Bld) [#/Vol] 447 10*3/uL 150-450 [facility] Poikilocytosis [Presence] in Blood by Light microscopyOrdered By: Carla Hagan on 12-31-2022 Poikilocytosis LM Ql (Bld) Slight [facility] Polychromasia [Presence] in Blood by Light microscopyOrdered By: Carla Hagan on 12-31-2022 Polychromasia LM Ql (Bld) Slight [facility] Potassium [Moles/volume] in Serum or PlasmaOrdered By: Carla Hagan on 12-31-2022 Potassium [Moles/Vol] 4.1 mmol/L 3.5-5.1 [facility] RBC Auto (Bld) [#/Vol]Ordere d By: Carla Hagan on 12-31-2022 RBC (Bld) [#/Vol] 3.86 10*6/uL 3.60-5.00 [facility] RBC morphologyOrdered By: Ra carey Hagan on 12-31-2022 RBC morphology finding Nom (Bld) N/A [facility] Segmented neutrophils/100 WB C Manual cnt (Bld)Ordered By: Carla Hagan on 12-31-2022 Segmented neutrophils/100 WBC (Bld) 86 % 50-70 [facility] Serum or plasma anion gap de terminationOrdered By: Carla Hagan on 12-31-2022 Anion gap [Moles/Vol] 12.9 mmol/L 6.0-15.0 [facility] Sodium [Moles/volume] in Ser um or PlasmaOrdered By: Carla Hagan on 12-31-2022 Sodium [Moles/Vol] 134 mmol/L 136-146 [facility] Urea nitrogen [Mass/volume] in Serum or PlasmaOrdered By: Carla Hagan on 12-31-2022 Urea nitrogen [Mass/Vol] 18 mg/dL 9-23 [facility] WBC Auto (Bld) [#/Vol]Ordere d By: Carla Hagan on 12-31-2022 WBC (Bld) [#/Vol] 13.4 10*3/uL 3.8-11.6 [facility] Creatine kinase [Enzymatic a ctivity/volume] in Serum or PlasmaOrdered By: Carla Hagan on 12-28-2022 CK [Catalytic activity/Vol] 108 U/L 22-269 [facility] Automated epithelial cells c ount in urine sediment (number/area)Ordered By: Maddy Morrissey on 12-27-2022 Epithelial cells Auto (Urine sed) [#/Area] 3-4 [HPF] 0-2 [facility] Automated erythrocytes count in urine sediment (number/area)Ordered By: Maddy Morrissey on 12-27-2022 RBC Auto (Urine sed) [#/Area] 0-1 [HPF] 0-4 [facility] Automated leukocytes count i n urine sediment (number/area)Ordered By: Maddy Morrissey on 12-27-2022 WBC Auto (Urine sed) [#/Area] 5-9 [HPF] 0-4 [facility] Bilirubin Test strip Ql (U)O rdered By: Maddy Morrissey on 12-27-2022 Bilirubin Ql (U) Negative Negative [facility] Color Auto (U)Ordered By: Corwin Morrissey on 12-27-2022 Color (U) Yellow Yellow [facility] Folate [Mass/volume] in Seru m or PlasmaOrdered By: Eve Mann on 12-27-2022 Folate [Mass/Vol] ng/mL >5.9 [facility] Comment on above: Folate reference ran ge: >5.9 ng/mlThe WHO technical consultation on folate and vitamin [id number] has determined that folate concentrations lessthan 4 ng/ml are considered deficient. Ketones Auto test strip (U) [Mass/Vol]Ordered By: Maddy Morrissey on 12-27-2022 Ketones (U) [Mass/Vol] Negative Negative [facility] Laboratory - Chemistry and C hemistry - challengeOrdered By: Eve Mann on 12-27-2022 Cobalamin (Vitamin B12) [Mass/Vol] 994 pg/mL 180-914 [facility] Nitrite Test strip Ql (U)Ord ered By: Maddy Morrissey on 12-27-2022 Nitrite Ql (U) Positive Negative [facility] Protein Auto test strip (U) [Mass/Vol]Ordered By: Maddy Morrissey on 12-27-2022 Protein (U) [Mass/Vol] Trace mg/dL Negative [facility] Specific gravity Auto test s trip (U) [Rel density]Ordered By: Maddy Morrissey on 12-27-2022 Specific gravity (U) [Rel density] > 1.050 1.001-1.03 0 [facility] Urine bacteria detection by automated methodOrdered By: Maddy Morrissey on 12-27-2022 Bacteria Auto Ql (U) 2+ None Seen [facility] Urine clarity by refractomet ry automatedOrdered By: Maddy Morrissey on 12-27-2022 Clarity Refractometry automated (U) Cloudy Clear [facility] Urine culture routineOrdered By: Maddy Morrissey on 12-27-2022 Bacteria identified Cx Nom (U) Escherichia coli [facility] Urine glucose measurement by automated test strip (mass/volume)Ordered By: Maddy Morrissey on 12-27-2022 Glucose Auto test strip (U) [Mass/Vol] Normal mg/dL Normal [facility] Urine hemoglobin detection b y automated test stripOrdered By: Maddy Morrissey on 12-27-2022 Hemoglobin Auto test strip Ql (U) Trace Negative [facility] Urine leukocyte esterase det ection by automated test stripOrdered By: Maddy Morrissey on 12-27-2022 Leukocyte esterase Auto test strip Ql (U) 3+ Negative [facility] Urobilinogen Auto test strip (U) [Mass/Vol]Ordered By: Maddy Morrissey on 12-27-2022 Urobilinogen (U) [Mass/Vol] Normal mg/dL Normal [facility] pH Auto test strip (U)Ordere d By: Maddy Morrissey on 12-27-2022 pH (U) 5.0 [pH] 5.0-9.0 [facility] Activated partial thrombopla stin time (aPTT) in platelet poor plasma by coagulation aOrdered By: Maddy Morrissey on 12-26-2022 aPTT Coag (PPP) [Time] 30.8 s 25.1-36.5 [facility] Basophils Auto (Bld) [#/Vol] Ordered By: Maddy Morrissey on 12-26-2022 Basophils (Bld) [#/Vol] 0.1 10*3/uL 0.0-0.2 [facility] Basophils/100 WBC Auto (Bld) Ordered By: Maddy Morrissey on 12-26-2022 Basophils/100 WBC (Bld) 0.5 % . [facility] Calcium [Mass/volume] in Ser um or PlasmaOrdered By: Maddy Morrissey on 12-26-2022 Calcium [Mass/Vol] 9.0 mg/dL 8.2-10.2 [facility] Carbon dioxide, total [Moles /volume] in Serum or PlasmaOrdered By: Maddy Morrissey on 12-26-2022 CO2 [Moles/Vol] 25.8 mmol/L 22.0-30.0 [facility] Chloride [Moles/volume] in S kaveh or PlasmaOrdered By: Maddy Morrissey on 12-26-2022 Chloride [Moles/Vol] 104 mmol/L 95-114 [facility] Creatinine and Glomerular fi ltration rate.predicted panel (S/P/Bld)Ordered By: Maddy Morrissey on 12-26-2022 Creatinine [Mass/Vol] 1.22 mg/dL 0.44-1.03 [facility] Eosinophils Auto (Bld) [#/Vo l]Ordered By: Maddy Morrissey on 12-26-2022 Eosinophils (Bld) [#/Vol] 0.1 10*3/uL 0.0-0.45 [facility] Eosinophils/100 WBC Auto (Bl d)Ordered By: Maddy Morrissey on 12-26-2022 Eosinophils/100 WBC (Bld) 1.1 % . [facility] Erythrocyte distribution wid th Auto (RBC) [Ratio]Ordered By: Maddy Morrissey on 12-26-2022 Erythrocyte distribution width (RBC) [Ratio] 15.9 % 11.9-15.3 [facility] Estimated glomerular filtrat ion rate (GFR) non- AmericanOrdered By: Maddy Morrissey on 12-26-2022 GFR/1.73 sq M.predicted among non-blacks MDRD (S/P/Bld) [Vol rate/Area] 43 mL/Min [facility] Glucose [Mass/volume] in Ser um or PlasmaOrdered By: Maddy Morrissey on 12-26-2022 Glucose [Mass/Vol] 128 mg/dL 70-100 [facility] Comment on above: ADA recommended refe rence rangeRandom Glucose Reference Range is dependent on time and content of last meal. Glucose of more than 200 mg/dL in a nonstressed, ambulatory subject supports the diagnosis of Diabetes Mellitus. Hematocrit Auto (Bld) [Volum e fraction]Ordered By: Maddy Morrissey on 12-26-2022 Hematocrit (Bld) [Volume fraction] 29.7 % 34.0-46.4 [facility] Hemoglobin [Mass/volume] in BloodOrdered By: Maddy Morrissey on 12-26-2022 Hemoglobin (Bld) [Mass/Vol] 9.3 g/dL 11.8-15.4 [facility] Laboratory - Chemistry and C hemistry - challengeOrdered By: Maddy Morrissey on 12-26-2022 Natriuretic peptide B (Bld) [Mass/Vol] 49.0 pg/mL 5-100 [facility] Laboratory - CoagulationOrde red By: Maddy Morrissey on 12-26-2022 PT Coag (PPP) [Time] 14.5 s 9.0-12.9 [facility] Leukocytes [#/volume] correc juma for nucleated erythrocytes in Blood by Automated counOrdered By: Maddy Morrissey on 12-26-2022 WBC corrected for nucl RBC Auto (Bld) [#/Vol] 12.0 10*3/uL 3.8-11.6 [facility] Lymphocytes Auto (Bld) [#/Vo l]Ordered By: Maddy Morrissey on 12-26-2022 Lymphocytes (Bld) [#/Vol] 3.0 10*3/uL 1.00-4.8 [facility] Lymphocytes/100 WBC Auto (Bl d)Ordered By: Maddy Morrissey on 12-26-2022 Lymphocytes/100 WBC (Bld) 24.8 % . [facility] MCH Auto (RBC) [Entitic mass ]Ordered By: Maddy Morrissey on 12-26-2022 MCH (RBC) [Entitic mass] 24.8 pg 24.7-34.3 [facility] MCHC Auto (RBC) [Mass/Vol]Or dered By: Maddy Morrissey on 12-26-2022 MCHC (RBC) [Mass/Vol] 31.2 g/dL 32.0-35.0 [facility] MCV Auto (RBC) [Entitic vol] Ordered By: Maddy Morrissey on 12-26-2022 MCV (RBC) [Entitic vol] 79.4 fL 80-100 [facility] Monocyte distribution width [Entitic volume] in Blood by AutomatedOrdered By: Maddy Morrissey on 12-26-2022 Monocyte distribution width Auto (Bld) [Entitic vol] 20.22 % 0.00-20.00 [facility] Comment on above: For adults in ED, MD W > 20.0 may be associated with a higher risk of sepsis during the first 12 hrs of hospital admission Monocytes Auto (Bld) [#/Vol] Ordered By: Maddy Morrissey on 12-26-2022 Monocytes (Bld) [#/Vol] 1.2 10*3/uL 0.0-0.8 [facility] Monocytes/100 WBC Auto (Bld) Ordered By: Maddy Morrissey on 12-26-2022 Monocytes/100 WBC (Bld) 10.1 % . [facility] Neutrophils Auto (Bld) [#/Vo l]Ordered By: Maddy Morrissey on 12-26-2022 Neutrophils (Bld) [#/Vol] 7.6 10*3/uL 1.8-7.7 [facility] Neutrophils/100 WBC Auto (Bl d)Ordered By: Maddy Morrissey on 12-26-2022 Neutrophils/100 WBC (Bld) 63.5 % . [facility] No Panel InformationOrdered By: Maddy Morrissey on 12-26-2022 Estimated GFR () 52 mL/Min [facility] Comment on above: GFR estimated refere nce range: According to KDOQI guidelines, <60 ml/min/1.73m2 is sufficient to diagnose a patient with chronic kidney disease. Pharmacy Creatinine Clearance (Chem 37.20 [facility] Nucleated erythrocytes [Pres ence] in Blood by Automated countOrdered By: Maddy Morrissey on 12-26-2022 Nucleated RBC Auto Ql (Bld) 0.1 /100{WBC} 0-0.5 [facility] Platelet mean volume Auto (B ld) [Entitic vol]Ordered By: Maddy Morrissey on 12-26-2022 Platelet mean volume (Bld) [Entitic vol] 6.5 fL 6.3-10.7 [facility] Platelet poor plasma interna tional normalized ratio (INR) by coagulation assay (relatOrdered By: Maddy Morrissey on 12-26-2022 INR Coag (PPP) [Relative time] 1.3 {INR} [facility] Comment on above: INR Therapeutic Rang e [...] 12-26-2022 Platelets (Bld) [#/Vol] 450 10*3/uL 150-450 [facility] Potassium [Moles/volume] in Serum or PlasmaOrdered By: Maddy Morrissey on 12-26-2022 Potassium [Moles/Vol] 3.9 mmol/L 3.5-5.1 [facility] RBC Auto (Bld) [#/Vol]Ordere d By: Maddy Morrissey on 12-26-2022 RBC (Bld) [#/Vol] 3.74 10*6/uL 3.60-5.00 [facility] Serum or plasma anion gap de terminationOrdered By: Maddy Morrissey on 12-26-2022 Anion gap [Moles/Vol] 10.1 mmol/L 6.0-15.0 [facility] Sodium [Moles/volume] in Ser um or PlasmaOrdered By: Maddy Morrissey on 12-26-2022 Sodium [Moles/Vol] 136 mmol/L 136-146 [facility] Troponin I.cardiac [Mass/vol ume] in Serum or Plasma by High sensitivity methodOrdered By: Maddy Morrissey on 12-26-2022 Troponin I.cardiac High sensitivity method [Mass/Vol] 6 pg/mL 0-15 [facility] Urea nitrogen [Mass/volume] in Serum or PlasmaOrdered By: Maddy Morrissey on 12-26-2022 Urea nitrogen [Mass/Vol] 21 mg/dL 9-23 [facility] WBC Auto (Bld) [#/Vol]Ordere d By: Maddy Morrissey on 12-26-2022 WBC (Bld) [#/Vol] 12.0 10*3/uL 3.8-11.6 [facility] Basophils Auto (Bld) [#/Vol] Ordered By: Hilario Yeung on 05-31-2022 Basophils (Bld) [#/Vol] 0.0 10*3/uL 0.0-0.2 [facility] Basophils/100 WBC Auto (Bld) Ordered By: Hilario Yeung on 05-31-2022 Basophils/100 WBC (Bld) 0.7 % . [facility] Blood hemoglobin measurement (mass/volume)Ordered By: Hilario Yeung on 05-31-2022 Hemoglobin (Bld) [Mass/Vol] 11.6 g/dL 11.8-15.4 [facility] Blood leukocytes automated c ount (number/volume)Ordered By: Hilario Yeung on 05-31-2022 WBC (Bld) [#/Vol] 5.9 10*3/uL 4.5-11.0 [facility] Creatinine and Glomerular fi ltration rate.predicted panel (S/P/Bld)Ordered By: Hilario Yeung on 05-31-2022 Creatinine [Mass/Vol] 1.22 mg/dL 0.44-1.03 [facility] Eosinophils Auto (Bld) [#/Vo l]Ordered By: Hilario Yeung on 05-31-2022 Eosinophils (Bld) [#/Vol] 0.3 10*3/uL 0.0-0.45 [facility] Eosinophils/100 WBC Auto (Bl d)Ordered By: Hilario Yeung on 05-31-2022 Eosinophils/100 WBC (Bld) 4.4 % . [facility] Erythrocyte distribution wid th Auto (RBC) [Ratio]Ordered By: Hilario Yeung on 05-31-2022 Erythrocyte distribution width (RBC) [Ratio] 16.9 % 11.9-15.3 [facility] Estimated glomerular filtrat ion rate (GFR) non- AmericanOrdered By: Hilario Yeung on 05-31-2022 GFR/1.73 sq M.predicted among non-blacks MDRD (S/P/Bld) [Vol rate/Area] 43 mL/Min [facility] Hematocrit Auto (Bld) [Volum e fraction]Ordered By: Hilario Yeung on 05-31-2022 Hematocrit (Bld) [Volume fraction] 36.6 % 34.0-46.4 [facility] Laboratory - Hematology and Cell countsOrdered By: Hilario Yeung on 05-31-2022 Nucleated RBC/100 WBC (Bld) [Ratio] 0.1 % 0-0.5 [facility] Lymphocytes Auto (Bld) [#/Vo l]Ordered By: Hilario Yeung on 05-31-2022 Lymphocytes (Bld) [#/Vol] 2.4 10*3/uL 1.00-4.8 [facility] Lymphocytes/100 WBC Auto (Bl d)Ordered By: Hilraio Yeung on 05-31-2022 Lymphocytes/100 WBC (Bld) 41.3 % . [facility] MCH Auto (RBC) [Entitic mass ]Ordered By: Hilario Yeung on 05-31-2022 MCH (RBC) [Entitic mass] 25.8 pg 24.7-34.3 [facility] MCHC Auto (RBC) [Mass/Vol]Or dered By: Hilario Yeung on 05-31-2022 MCHC (RBC) [Mass/Vol] 31.7 g/dL 32.0-35.0 [facility] MCV Auto (RBC) [Entitic vol] Ordered By: Hilario Yeung on 05-31-2022 MCV (RBC) [Entitic vol] 81.4 fL 80-100 [facility] Monocytes Auto (Bld) [#/Vol] Ordered By: Hilario Yeung on 05-31-2022 Monocytes (Bld) [#/Vol] 0.6 10*3/uL 0.0-0.8 [facility] Monocytes/100 WBC Auto (Bld) Ordered By: Hilario Yeung on 05-31-2022 Monocytes/100 WBC (Bld) 10.6 % . [facility] Neutrophils Auto (Bld) [#/Vo l]Ordered By: Hilario Yeung on 05-31-2022 Neutrophils (Bld) [#/Vol] 2.5 10*3/uL 1.8-7.7 [facility] Neutrophils/100 WBC Auto (Bl d)Ordered By: Hilario Yeung on 05-31-2022 Neutrophils/100 WBC (Bld) 43.0 % . [facility] No Panel InformationOrdered By: Hilario Yeung on 05-31-2022 Estimated GFR () 52 mL/Min [facility] Comment on above: GFR estimated refere nce range: According to KDOQI guidelines, <60 ml/min/1.73m2 is sufficient to diagnose a patient with chronic kidney disease. Pharmacy Creatinine Clearance (Chem 39.11 [facility] Platelet mean volume Auto (B ld) [Entitic vol]Ordered By: Hilario Yeung on 05-31-2022 Platelet mean volume (Bld) [Entitic vol] 7.5 fL 6.3-10.7 [facility] Platelets Auto (Bld) [#/Vol] Ordered By: Hilario Yeung on 05-31-2022 Platelets (Bld) [#/Vol] 209 10*3/uL 150-450 [facility] RBC Auto (Bld) [#/Vol]Ordere d By: Hilario Yeung on 05-31-2022 RBC (Bld) [#/Vol] 4.50 10*6/uL 3.60-5.00 [facility] Serum or plasma calcium roly urement (mass/volume)Ordered By: Hilario Yeung on 08-04-2022 Calcium [Mass/Vol] 9.1 mg/dL 8.2-10.2 [facility] Serum or plasma chloride deirdre surement (moles/volume)Ordered By: Hilario Yeung on 05-31-2022 Chloride [Moles/Vol] 100 mmol/L 95-114 [facility] Serum or plasma glucose roly urement (mass/volume)Ordered By: Hilario Yeung on 05-31-2022 Glucose [Mass/Vol] 99 mg/dL 70-100 [facility] Comment on above: ADA recommended refe rence range Random Glucose Reference Range is dependent on time and content of last meal. Glucose of more than 200 mg/dL in a nonstressed, ambulatory subject supports the diagnosis of Diabetes Mellitus. Serum or plasma potassium me asurement (moles/volume)Ordered By: Hilario Yeung on 05-31-2022 Potassium [Moles/Vol] 4.2 mmol/L 3.5-5.1 [facility] Serum or plasma sodium measu rement (moles/volume)Ordered By: Hilario Yeung on 05-31-2022 Sodium [Moles/Vol] 138 mmol/L 136-146 [facility] Serum or plasma total carbon dioxide measurement (moles/volume)Ordered By: Hilario Yeung on 05-31-2022 CO2 [Moles/Vol] 29.7 mmol/L 22.0-30.0 [facility] Serum or plasma urea nitroge n measurement (mass/volume)Ordered By: Hilario Yeung on 05-31-2022 Urea nitrogen [Mass/Vol] 13 mg/dL 9-23 [facility] SCREENING MAMMOGRAM W/[place], BILATERAL*on 04-27-2022 SCREENING MAMMOGRAM [...] VERY IMPORTANT TO YOUR HEALTH. THE CURRENT [employer] AND [employer]WORK GUIDELINES RECOMMENDS ANNUAL MAMMOGRAPHY BEGINNING AT AGE 40 THIS FACILITY USES A REMINDER SYSTEM TO ENSURE ALL PATIENTS RECEIVE REMINDER NOTIFICATIONS AT THE APPROPRIATE TIME BASED ON THE RECOMMENDATIONS OF THIS EXAM. Board Certified Radiologist. Accredited by the ACR and FDA. Report reported and signed by Edgar Hooper on 05/01/2022 [address] [facility] [address] Low Dose Lung Screeningon 04-26-2022 [...] by Devonte Gomez on 04/27/2022 1239 Normal [facility] XR Hip Complete Left*on 02-25 XR [...] by Wicho Bowman on 03/14/2022 1550 Normal [facility] XR Spine Lumbar 4+ Views*on 05-18-2022 XR Spine Lumbar 4+ Views* CLINICAL HISTORY: [...] by Wicho Bowman on 03/14/2022 1546 Normal [facility] Specialist [facility] Outreach ([facility]) -- GERA PERDUE ([id number]) 1945 F Date Time Provider Department 12/20/20 DERICK LOPEZ During your visit today, we recorded the following information about you: Allergies As of Date: 12/20/2020 Noted Allergy Reaction ASPRIN (ASPIRIN) 03/02/2019 1 - Mental Status Change Date Reviewed: 05/04/2020 Reviewed by: Prasad Phillips - Fully Assessed Order(s):SARS-COVID VACCINE 1ST DOSE APPT [[id number]] Order #: [id number] FUTURE Prescriptions as of 12/20/2020 Sig: HYDROCODONE [...] [E66.9] 02/25/2015 Letter Text Encounter Status:Closed by [employer] on 12/23/20 [facility] PROGRESSon 05-03-2020 PROGRESS HNO ID: [id number] Author: Prasad Phillips Service: ? Author Type: Physician Type: Progress Notes Filed: 05/04/2020 8:19 PM Note Text: Gera Perdue : 1945 Care Home: [facility] PCP: guanako Date last seen: 04/2020 [...] of right foot Prasad Phillips DPM Normal [place] CBC Auto Differentialon 10-0 Basophils (Bld) [#/Vol] 0.03 10*3/uL [place] Basophils/100 WBC (Bld) 0 % 0 - 2 % [place] Differential Type NOT REPORTED [place] Eosinophils (Bld) [#/Vol] 0.14 10*3/uL [place] Eosinophils/100 WBC (Bld) 2 % 1 - 4 % [place] Erythrocyte distribution width (RBC) [Ratio] 15.0 % High 11.8 - 14.4 % [place] Hematocrit (Bld) [Volume fraction] 32.7 % Low 36.3 - 47.1 % [place] Hemoglobin (Bld) [Mass/Vol] 9.9 g/dL Low 11.9 - 15.1 g/dL [place] Immature granulocytes (Bld) [#/Vol] 0.03 10*3/uL [place] Immature granulocytes (Bld) [#/Vol] 0 % 0 [place] Interpretation and review of laboratory results Abnormal [place] Lymphocytes (Bld) [#/Vol] 1.67 10*3/uL [place] Lymphocytes/100 WBC (Bld) 22 % Low 24 - 43 % [place] MCH (RBC) [Entitic mass] 27.7 pg 25.2 - 33.5 pg [place] MCHC (RBC) [Mass/Vol] 30.3 g/dL 28.4 - 34.8 g/dL [place] MCV (RBC) [Entitic vol] 91.3 fL 82.6 - 102.9 fL [place] Monocytes (Bld) [#/Vol] 1.00 10*3/uL [place] Monocytes/100 WBC (Bld) 13 % High 3 - 12 % [place] Platelet mean volume (Bld) [Entitic vol] 9.1 fL 8.1 - 13.5 fL [place] Platelets (Bld) [#/Vol] 184 10*3/uL [place] Platelets (Bld) [#/Vol] NOT REPORTED [place] RBC (Bld) [#/Vol] 3.58 10*6/uL Low 3.95 - 5.11 m/uL [place] RBC morphology finding Nom (Bld) ANISOCYTOSIS PRESENT [place] Segmented neutrophils/100 WBC (Bld) 63 % 36 - 65 % [place] Segs Absolute 4.63 [place] WBC (Bld) [#/Vol] 7.5 10*3/uL [place] WBC (Bld) [#/Vol] 0.0 10*3/uL 0.0 per 100 WBC [place] WBC Morphology NOT REPORTED [place] CBC with Diffon 08-04-2019 Abs. Basophil 0.03 k/uL Normal 0.00-0.20 [facility] Comment on above: Performed By: #### C DP #### [place] [address] [employer]: Juan Perera MD Abs.Imm.Granulocyte 0.03 k/uL Normal 0.00-0.30 [facility] Comment on above: Performed By: #### C DP #### [place] [address] [employer]: Juan Perera MD Abs.Neutrophil (Seg) 4.63 k/uL Normal 1.50-8.10 [facility] Comment on above: Performed By: #### C DP #### [facility] [employer] [address] [place] [address] [employer]: Juan Perera MD Basophils/100 WBC (Bld) 0 % Normal 0-2 [facility] Comment on above: Performed By: #### C DP #### [address] [address] [place]: Juan Perera MD Eosinophils (Bld) [#/Vol] 0.14 10*3/uL Normal 0.00-0.44 [facility] Comment on above: Performed By: #### C DP #### [address] [address] [employer]: Juan Perera MD Eosinophils/100 WBC (Bld) 2 % Normal 1-4 [facility] Comment on above: Performed By: #### C DP #### [place] [address] [employer]: Juan Perera MD Erythrocyte distribution width (RBC) [Ratio] 15.0 % High 11.8-14.4 [facility] Comment on above: Performed By: #### C DP #### [place] [address] [employer]: Juan Perera MD Hematocrit (Bld) [Volume fraction] 32.7 % Low 36.3-47.1 [facility] Comment on above: Performed By: #### C DP #### [address] [address] [employer]: Juan Perera MD Hemoglobin (Bld) [Mass/Vol] 9.9 g/dL Low 11.9-15.1 [facility] Comment on above: Performed By: #### C DP #### [address] [address] [employer]: Juan Perera MD Immature granulocytes (Bld) [#/Vol] 0 % Normal 0 [facility] Comment on above: Performed By: #### C DP #### [address] [address] [employer]: Juan Perera MD Lymphocytes (Bld) [#/Vol] 1.67 10*3/uL Normal 1.10-3.70 [facility] Comment on above: Performed By: #### C DP #### [address] [address] [employer]: Juan Perera MD Lymphocytes/100 WBC (Bld) 22 % Low 24-43 [facility] Comment on above: Performed By: #### C DP #### [address] [address] [employer]: Juan Perera MD MCH (RBC) [Entitic mass] 27.7 pg Normal 25.2-33.5 [facility] Comment on above: Performed By: #### C DP #### [place] [address] [employer]: Juan Perera MD MCHC (RBC) [Mass/Vol] 30.3 g/dL Normal 28.4-34.8 [facility] Comment on above: Performed By: #### C DP #### [address] [address] [employer]: Juan Perera MD MCV (RBC) [Entitic vol] 91.3 fL Normal 82.6-102.9 [facility] Comment on above: Performed By: #### C DP #### [address] [address] [employer]: Juan Perera MD Monocytes (Bld) [#/Vol] 1.00 10*3/uL Normal 0.10-1.20 [facility] Comment on above: Performed By: #### C DP #### [address] [address] [employer]: Juan Perera MD Monocytes/100 WBC (Bld) 13 % High 3-12 [facility] Comment on above: Performed By: #### C DP #### [address] [address] [employer]: Juan Perera MD Neutrophil (Seg) 63 % Normal 36-65 [facility] Comment on above: Performed By: #### C DP #### [address] [address] [employer]: Juan Perera MD NRBC Automated 0.0 per 100 WBC Normal 0.0 [facility] Comment on above: Performed By: #### C DP #### [address] [address] [employer]: Juan Perera MD Platelet mean volume (Bld) [Entitic vol] 9.1 fL Normal 8.1-13.5 [facility] Comment on above: Performed By: #### C DP #### [address] [address] [employer]: Juan Perera MD Platelets (Bld) [#/Vol] 184 10*3/uL Normal 138-453 [facility] Comment on above: Performed By: #### C DP #### [address] [address] [employer]: Juan Perera MD RBC (Bld) [#/Vol] 3.58 10*6/uL Low 3.95-5.11 [facility] Comment on above: Performed By: #### C DP #### [address] [address] [employer]: Juan Perera MD RBC morphology finding Nom (Bld) ANISOCYTOSIS PRESENT Normal [facility] Comment on above: Performed By: #### C DP #### [address] [address] [employer]: Juan Perera MD WBC (Bld) [#/Vol] 7.5 10*3/uL Normal 3.5-11.3 [facility] Comment on above: Performed By: #### C DP #### [facility] [employer] [facility] [place], [place] [id number] [employer]: Juan Perera MD Auto Diff Performed NOT REPORTED Normal [facility] Comment on above: Performed By: #### C DP #### [facility] [employer] [address] [place] [phone] [employer]: Juan Perera MD Platelets (Bld) [#/Vol] NOT REPORTED Normal [facility] Comment on above: Performed By: #### C DP #### [address] [phone] [employer]: Juan Perera MD WBC Morphology NOT REPORTED Normal [facility] Comment on above: Performed By: #### C DP #### [address] [phone] [employer]: Juan Perera MD CBC Auto Differentialon 10 Basophils (Bld) [#/Vol] 0.04 10*3/uL [place] Basophils/100 WBC (Bld) 1 % 0 - 2 % [place] Differential Type NOT REPORTED [place] Eosinophils (Bld) [#/Vol] 0.19 10*3/uL [place] Eosinophils/100 WBC (Bld) 2 % 1 - 4 % [place] Erythrocyte distribution width (RBC) [Ratio] 15.5 % High 11.8 - 14.4 % [place] Hematocrit (Bld) [Volume fraction] 37.6 % 36.3 - 47.1 % [place] Hemoglobin (Bld) [Mass/Vol] 11.4 g/dL Low 11.9 - 15.1 g/dL [place] Immature granulocytes (Bld) [#/Vol] 10*3/uL [place] Immature granulocytes (Bld) [#/Vol] 0 % 0 [place] Interpretation and review of laboratory results Abnormal [place] Lymphocytes (Bld) [#/Vol] 1.70 10*3/uL [place] Lymphocytes/100 WBC (Bld) 22 % Low 24 - 43 % [place] MCH (RBC) [Entitic mass] 27.8 pg 25.2 - 33.5 pg [place] MCHC (RBC) [Mass/Vol] 30.3 g/dL 28.4 - 34.8 g/dL [place] MCV (RBC) [Entitic vol] 91.7 fL 82.6 - 102.9 fL [place] Monocytes (Bld) [#/Vol] 0.92 10*3/uL [place] Monocytes/100 WBC (Bld) 12 % 3 - 12 % [place] Platelet mean volume (Bld) [Entitic vol] 9.4 fL 8.1 - 13.5 fL [place] Platelets (Bld) [#/Vol] NOT REPORTED [place] Platelets (Bld) [#/Vol] 199 10*3/uL [place] RBC (Bld) [#/Vol] 4.10 10*6/uL 3.95 - 5.11 m/uL [place] RBC morphology finding Nom (Bld) ANISOCYTOSIS PRESENT [place] Segmented neutrophils/100 WBC (Bld) 63 % 36 - 65 % [place] Segs Absolute 4.97 [place] WBC (Bld) [#/Vol] 0.0 10*3/uL 0.0 per 100 WBC [place] WBC (Bld) [#/Vol] 7.8 10*3/uL [place] WBC Morphology NOT REPORTED [place] CBC with Diffon 08-03-2019 Abs. Basophil 0.04 k/uL Normal 0.00-0.20 [facility] Comment on above: Performed By: #### C DP, CP #### [facility] [address] [address] [place]: Juan Perera MD Abs.Imm.Granulocyte <0.03 Normal 0.00-0.30 [facility] Comment on above: Performed By: #### C DP, CP #### [address] [address] [place]: Juan Perera MD Abs.Neutrophil (Seg) 4.97 k/uL Normal 1.50-8.10 [facility] Comment on above: Performed By: #### C DP, CP #### [place] [address] [employer]: Juan Perera MD Basophils/100 WBC (Bld) 1 % Normal 0-2 [facility] Comment on above: Performed By: #### C DP, CP #### [place] [address] [employer]: Juan Perera MD Eosinophils (Bld) [#/Vol] 0.19 10*3/uL Normal 0.00-0.44 [facility] Comment on above: Performed By: #### C DP, CP #### [place] [address] [employer]: Juan Perera MD Eosinophils/100 WBC (Bld) 2 % Normal 1-4 [facility] Comment on above: Performed By: #### C DP, CP #### [place] [address] [employer]: Juan Perera MD Erythrocyte distribution width (RBC) [Ratio] 15.5 % High 11.8-14.4 [facility] Comment on above: Performed By: #### C DP, CP #### [place] [address] [employer]: Juan Perera MD Hematocrit (Bld) [Volume fraction] 37.6 % Normal 36.3-47.1 [facility] Comment on above: Performed By: #### C DP, CP #### [address] [address] [place] [employer]: Juan Perera MD Hemoglobin (Bld) [Mass/Vol] 11.4 g/dL Low 11.9-15.1 [facility] Comment on above: Performed By: #### C DP, CP #### [address] [address] [employer]: Juan Perera MD Immature granulocytes (Bld) [#/Vol] 0 % Normal 0 [facility] Comment on above: Performed By: #### C DP, CP #### [place] [address] [employer]: Juan Perera MD Lymphocytes (Bld) [#/Vol] 1.70 10*3/uL Normal 1.10-3.70 [facility] Comment on above: Performed By: #### C DP, CP #### [place] [address] [employer]: Juan Perera MD Lymphocytes/100 WBC (Bld) 22 % Low 24-43 [facility] Comment on above: Performed By: #### C DP, CP #### [place] [address] [employer]: Juan Perera MD MCH (RBC) [Entitic mass] 27.8 pg Normal 25.2-33.5 [facility] Comment on above: Performed By: #### C DP, CP #### [address] [address] [employer]: Juan Perera MD MCHC (RBC) [Mass/Vol] 30.3 g/dL Normal 28.4-34.8 [facility] Comment on above: Performed By: #### C DP, CP #### [address] [address] [employer]: Juan Perera MD MCV (RBC) [Entitic vol] 91.7 fL Normal 82.6-102.9 [facility] Comment on above: Performed By: #### C DP, CP #### [address] [address] [employer]: Juan Perera MD Monocytes (Bld) [#/Vol] 0.92 10*3/uL Normal 0.10-1.20 [facility] Comment on above: Performed By: #### C DP, CP #### [address] [address] [employer]: Juan Perera MD Monocytes/100 WBC (Bld) 12 % Normal 3-12 [facility] Comment on above: Performed By: #### C DP, CP #### [address] [address] [employer]: Juan Perera MD Neutrophil (Seg) 63 % Normal 36-65 [facility] Comment on above: Performed By: #### C DP, CP #### [address] [address] [employer]: Juan Perera MD NRBC Automated 0.0 per 100 WBC Normal 0.0 [facility] Comment on above: Performed By: #### C DP, CP #### [address] [address] [employer]: Juan Perera MD Platelet mean volume (Bld) [Entitic vol] 9.4 fL Normal 8.1-13.5 [facility] Comment on above: Performed By: #### C DP, CP #### [address] [address] [employer]: Juan Perera MD Platelets (Bld) [#/Vol] 199 10*3/uL Normal 138-453 [facility] Comment on above: Performed By: #### C DP, CP #### [address] [address] [employer]: Juan Perera MD RBC (Bld) [#/Vol] 4.10 10*6/uL Normal 3.95-5.11 [facility] Comment on above: Performed By: #### C DP, CP #### [address] [address] [employer]: Juan Perera MD RBC morphology finding Nom (Bld) ANISOCYTOSIS PRESENT Normal [facility] Comment on above: Performed By: #### C DP, CP #### [address] [address] [employer]: Juan Perera MD WBC (Bld) [#/Vol] 7.8 10*3/uL Normal 3.5-11.3 [facility] Comment on above: Performed By: #### C DP, CP #### [address] [address] [employer]: Juan Perera MD Auto Diff Performed NOT REPORTED Normal [facility] Comment on above: Performed By: #### C DP, CP #### [address] [address] [employer]: Juan Perera MD Platelets (Bld) [#/Vol] NOT REPORTED Normal [facility] Comment on above: Performed By: #### C DP, CP #### [address] [address] [employer]: Juan Perera MD WBC Morphology NOT REPORTED Normal [facility] Comment on above: Performed By: #### C DP, CP #### [facility] [address] [place] [phone] [employer]: Juan Perera MD Comp Metabolic Profon 2018 (cont.) Normal [facility] Comment on above: Result Comment: Aver age GFR for 70 or more years old: 75 mL/min/1.73sq m Chronic Kidney Disease: <60 mL/min/1.73sq m Kidney failure: <15 mL/min/1.73sq m eGFR calculated using average adult body mass. Additional eGFR calculator available at: http://www.[employer]/multiple_crcl_2012.htm Performed By: #### C DP, CP #### [facility] [employer] [address] [place] [phone] [employer]: Juan Perera MD Albumin [Mass/Vol] 2.7 g/dL Low 3.5-5.2 [facility] Comment on above: Performed By: #### C DP, CP #### [facility] [employer] [address] [place] [phone] [employer]: Juan Perera MD Albumin/Globulin [Mass ratio] 0.8 {ratio} Low 1.0-2.5 [facility] Comment on above: Performed By: #### C DP, CP #### [facility] [employer] [address] [place] [address] [employer]: Juan Perera MD Alkaline Phos 65 U/L Normal 35-104 [facility] Comment on above: Performed By: #### C DP, CP #### [facility] [employer] [address] [place] [phone] [employer]: Juan Perera MD ALT [Catalytic activity/Vol] 8 U/L Normal 5-33 [facility] Comment on above: Performed By: #### C DP, CP #### [facility] [employer] [address] [place] [address] [employer]: Juan Perera MD Anion gap [Moles/Vol] 12 mmol/L Normal 9-17 [facility] Comment on above: Performed By: #### C DP, CP #### [facility] [employer] [address] [place] [phone] [employer]: Juan Perera MD AST [Catalytic activity/Vol] 13 U/L Normal <32 [facility] Comment on above: Performed By: #### C DP, CP #### [address] [address] [employer]: Juan Perera MD Bilirubin Ql (U) 0.41 mg/dL Normal 0.3-1.2 [facility] Comment on above: Performed By: #### C DP, CP #### [address] [address] [employer]: Juan Perera MD Calcium [Mass/Vol] 8.3 mg/dL Low 8.6-10.4 [facility] Comment on above: Performed By: #### C DP, CP #### [address] [address] [employer]: Juan Perera MD Chloride [Moles/Vol] 108 mmol/L High 98-107 [facility] Comment on above: Performed By: #### C DP, CP #### [address] [address] [employer]: Juan Perera MD CO2 [Moles/Vol] 22 mmol/L Normal 20-31 [facility] Comment on above: Performed By: #### C DP, CP #### [address] [address] [employer]: Juan Perera MD Creatinine [Mass/Vol] 0.72 mg/dL Normal 0.50-0.90 [facility] Comment on above: Performed By: #### C DP, CP #### [address] [address] [employer]: Juan Perera MD GFR, Amer >60 Normal >60 [facility] Comment on above: Performed By: #### C DP, CP #### [address] [address] [employer]: Juan Perera MD GFR,non Amer >60 Normal >60 [facility] Comment on above: Performed By: #### C DP, CP #### [address] [address] [employer]: Juan Perera MD Glucose [Mass/Vol] 78 mg/dL Normal 70-99 [facility] Comment on above: Performed By: #### C DP, CP #### [address] [address] [employer]: Juan Perera MD Potassium [Moles/Vol] 3.9 mmol/L Normal 3.7-5.3 [facility] Comment on above: Performed By: #### C DP, CP #### [address] [address] [employer]: Juan Perera MD Protein [Mass/Vol] 6.2 g/dL Low 6.4-8.3 [facility] Comment on above: Performed By: #### C DP, CP #### [address] [address] [employer]: Juan Perera MD Sodium [Moles/Vol] 142 mmol/L Normal 135-144 [facility] Comment on above: Performed By: #### C DP, CP #### [address] [address] [employer]: Juan Perera MD Urea nitrogen [Mass/Vol] 11 mg/dL Normal 8-23 [facility] Comment on above: Performed By: #### C DP, CP #### [facility] [address] [place], [place] [phone] [employer]: Juan Perera MD BUN/CRE Ratio NOT REPORTED Normal 07-17 [facility] Comment on above: Performed By: #### C DP, CP #### [facility] [address] [place], [place] [phone] [employer]: Juan Perera MD Staging: NOT REPORTED Normal [facility] Comment on above: Performed By: #### C DP, CP #### [facility] [address] [place], [place] [phone] [employer]: Juan Perera MD Comprehensive Metabolic Pane [facility] 08-03-2019 Albumin [Mass/Vol] 2.7 g/dL Low 3.5 - 5.2 g/dL [place] Albumin/Globulin [Mass ratio] 0.8 {ratio} Low [place] ALP [Catalytic activity/Vol] 65 U/L 35 - 104 U/L [place] ALT [Catalytic activity/Vol] 8 U/L 5 - 33 U/L [place] Anion gap [Moles/Vol] 12 mmol/L 9 - 17 mmol/L [place] AST [Catalytic activity/Vol] 13 U/L <32 [place] Bilirubin Ql (U) 0.41 mg/dL 0.3 - 1.2 mg/dL [place] Bun/Cre Ratio NOT REPORTED [place] Calcium [Mass/Vol] 8.3 mg/dL Low 8.6 - 10. 4 mg/dL [place] Chloride [Moles/Vol] 108 mmol/L High 98 - 10 7 mmol/L [place] CO2 [Moles/Vol] 22 mmol/L 20 - 31 mmol/L [place] Creatinine [Mass/Vol] 0.72 mg/dL 0.5 - 0.9 mg/dL [place] GFR >60 >60 mL/min [place] GFR Non- >60 >60 mL/min [place] GFR/1.73 sq M predicted among non-blacks MDRD (S/P/Bld) [Vol rate/Area] NOT REPORTED [place] GFR/1.73 sq M predicted among non-blacks MDRD (S/P/Bld) [Vol rate/Area] [place] Comment on above: Average GFR for 70 o r more years old: 75 mL/min/1.73sq m Chronic Kidney Disease: <60 mL/min/1.73sq m Kidney failure: <15 mL/min/1.73sq m eGFR calculated using average adult body mass. Additional eGFR calculator available at: http://www.[employer]/multiple_crcl_2011.htm Glucose [Mass/Vol] 78 mg/dL 70 - 99 mg/dL [place] Interpretation and review of laboratory results Abnormal [place] Potassium [Moles/Vol] 3.9 mmol/L 3.7 - 5.3 mmol/L [place] Protein [Mass/Vol] 6.2 g/dL Low 6.4 - 8.3 g/dL [place] Sodium [Moles/Vol] 142 mmol/L 135 - 144 mmol/L [place] Urea nitrogen [Mass/Vol] 11 mg/dL 8 - 23 mg/dL [place] XR ABDOMEN (KUB) (SINGLE AP VIEW)on [...] Martin Hope MD 08/03/19 Final result Normal [facility] Nonspecific bowel ga s pattern. [facility] [place], [place] Robert, Mhpn Incoming R adiant Results From INPA Systemscribe/Pacs - 08/03/2019 9:28 AM EDT EXAMINATION: ONE SUPINE XRAY VIEW(S) OF THE ABDOMEN 08/03/2019 9:06 am COMPARISON: 08/02/2019 HISTORY: ORDERING SYSTEM PROVIDED HISTORY: SBO TECHNOLOGIST PROVIDED HISTORY: SBO Reason for Exam: supine FINDINGS: Nonspecific bowel gas pattern. No pathologic bowel dilatation. Gas throughout the colon. Rectal gas. Enteric tube within the stomach. No organomegaly. No suspicious calcifications. IMPRESSION: Nonspecific bowel gas pattern. [place] EXAMINATION: ONE SUP INE XRAY VIEW(S) OF THE ABDOMEN 08/03/2019 9:06 am COMPARISON: 08/02/2019 HISTORY: ORDERING SYSTEM PROVIDED HISTORY: SBO TECHNOLOGIST PROVIDED HISTORY: SBO Reason for Exam: supine FINDINGS: Nonspecific bowel gas pattern. No pathologic bowel dilatation. Gas throughout the colon. Rectal gas. Enteric tube within the stomach. No organomegaly. No suspicious calcifications. [place] CBC Auto Differentialon 10-0 Basophils (Bld) [#/Vol] 0.03 10*3/uL [place] Basophils/100 WBC (Bld) 0 % 0 - 2 % [place] Differential Type NOT REPORTED [place] Eosinophils (Bld) [#/Vol] 0.17 10*3/uL [place] Eosinophils/100 WBC (Bld) 2 % 1 - 4 % [place] Erythrocyte distribution width (RBC) [Ratio] 15.6 % High 11.8 - 14.4 % [place] Hematocrit (Bld) [Volume fraction] 36.3 % 36.3 - 47.1 % [place] Hemoglobin (Bld) [Mass/Vol] 11.7 g/dL Low 11.9 - 15.1 g/dL [place] Immature granulocytes (Bld) [#/Vol] 0 % 0 [place] Immature granulocytes (Bld) [#/Vol] 0.03 10*3/uL [place] Interpretation and review of laboratory results Abnormal [place] Lymphocytes (Bld) [#/Vol] 1.85 10*3/uL [place] Lymphocytes/100 WBC (Bld) 20 % Low 24 - 43 % [place] MCH (RBC) [Entitic mass] 27.9 pg 25.2 - 33.5 pg [place] MCHC (RBC) [Mass/Vol] 32.2 g/dL 28.4 - 34.8 g/dL [place] MCV (RBC) [Entitic vol] 86.6 fL 82.6 - 102.9 fL [place] Monocytes (Bld) [#/Vol] 1.08 10*3/uL [place] Monocytes/100 WBC (Bld) 12 % 3 - 12 % [place] Platelet mean volume (Bld) [Entitic vol] 9.3 fL 8.1 - 13.5 fL [place] Platelets (Bld) [#/Vol] 215 10*3/uL [place] Platelets (Bld) [#/Vol] NOT REPORTED [place] RBC (Bld) [#/Vol] 4.19 10*6/uL 3.95 - 5.11 m/uL [place] RBC morphology finding Nom (Bld) ANISOCYTOSIS PRESENT [place] Segmented neutrophils/100 WBC (Bld) 66 % High 36 - 65 % [place] Segs Absolute 6.12 [place] WBC (Bld) [#/Vol] 9.3 10*3/uL [place] WBC (Bld) [#/Vol] 0.0 10*3/uL 0.0 per 100 WBC [place] WBC Morphology NOT REPORTED [place] CBC with Diffon 08-02-2019 Abs. Basophil 0.03 k/uL Normal 0.00-0.20 [facility] Comment on above: Performed By: #### L ACWB, CDP, REJEC #### [facility] [place], [place] [id number] [place] [employer]: Juan Perera MD Abs.Imm.Granulocyte 0.03 k/uL Normal 0.00-0.30 [facility] Comment on above: Performed By: #### L ACWB CDP, REJEC #### [address] [address] [place]: Juan Perera MD Abs.Neutrophil (Seg) 6.12 k/uL Normal 1.50-8.10 [facility] Comment on above: Performed By: #### L ACWB CDP, REJEC #### [address] [address] [employer]: Juan Perera MD Basophils/100 WBC (Bld) 0 % Normal 0-2 [facility] Comment on above: Performed By: #### L ACWSandi CDP, REJEC #### [place] [address] [employer]: Juan Perera MD Eosinophils (Bld) [#/Vol] 0.17 10*3/uL Normal 0.00-0.44 [facility] Comment on above: Performed By: #### L ACARAMIS GARY, REJEC #### [address] [address] [employer]: Juan Perera MD Eosinophils/100 WBC (Bld) 2 % Normal 1-4 [facility] Comment on above: Performed By: #### L ACWSandi CDP, REJEC #### [address] [address] [employer]: Juan Perera MD Immature granulocytes (Bld) [#/Vol] 0 % Normal 0 [facility] Comment on above: Performed By: #### L ACWB CDP, REJEC #### [address] [address] [employer]: Juan Perera MD Lymphocytes (Bld) [#/Vol] 1.85 10*3/uL Normal 1.10-3.70 [facility] Comment on above: Performed By: #### L ACWB, CDP, REJEC #### [address] [address] [employer]: Juan Perera MD Lymphocytes/100 WBC (Bld) 20 % Low 24-43 [facility] Comment on above: Performed By: #### L ACWB, CDP, REJEC #### [address] [address] [employer]: Juan Perera MD Monocytes (Bld) [#/Vol] 1.08 10*3/uL Normal 0.10-1.20 [facility] Comment on above: Performed By: #### L ACWB CDP, REJEC #### [address] [address] [employer]: Juan Perera MD Monocytes/100 WBC (Bld) 12 % Normal 3-12 [facility] Comment on above: Performed By: #### L ACWB CDP, REJEC #### [address] [address] [employer]: Juan Perera MD Neutrophil (Seg) 66 % High 36-65 [facility] Comment on above: Performed By: #### L ACWB CDP, REJEC #### [address] [address] [employer]: Juan Perera MD RBC morphology finding Nom (Bld) ANISOCYTOSIS PRESENT Normal [facility] Comment on above: Performed By: #### L ACWB CDP, REJEC #### [facility] [employer] [address] [place] [phone] [employer] Tier: Juan Perera MD Erythrocyte distribution width (RBC) [Ratio] 15.6 % High 11.8-14.4 [facility] Comment on above: Performed By: #### L ACWB CDP, REJEC #### [address] [address] [employer]: Juan Perera MD Hematocrit (Bld) [Volume fraction] 36.3 % Normal 36.3-47.1 [facility] Comment on above: Performed By: #### L ARAMIS HO, REJEC #### [address] [address] [employer]: Juan Perera MD Hemoglobin (Bld) [Mass/Vol] 11.7 g/dL Low 11.9-15.1 [facility] Comment on above: Performed By: #### L ARAMIS HO, REJEC #### [address] [address] [employer]: Juan Perera MD MCH (RBC) [Entitic mass] 27.9 pg Normal 25.2-33.5 [facility] Comment on above: Performed By: #### ARAMIS SORIANO, REJEC #### [address] [address] [employer]: Juan Perera MD MCHC (RBC) [Mass/Vol] 32.2 g/dL Normal 28.4-34.8 [facility] Comment on above: Performed By: #### L ARAMIS HO, REJEC #### [address] [address] [employer]: Juan Perera MD MCV (RBC) [Entitic vol] 86.6 fL Normal 82.6-102.9 [facility] Comment on above: Performed By: #### L ARAMIS HO, REJEC #### [address] [address] [employer]: Juan Perera MD NRBC Automated 0.0 per 100 WBC Normal 0.0 [facility] Comment on above: Performed By: #### L ACWB CDP, REJEC #### [address] [address] [employer]: Juan Perera MD Platelet mean volume (Bld) [Entitic vol] 9.3 fL Normal 8.1-13.5 [facility] Comment on above: Performed By: #### L ACWB CDP, REJEC #### [address] [address] [employer]: Juan Perera MD Platelets (Bld) [#/Vol] 215 10*3/uL Normal 138-453 [facility] Comment on above: Performed By: #### L ACWSandi CDP, REJEC #### [address] [address] [employer]: Juan Perera MD RBC (Bld) [#/Vol] 4.19 10*6/uL Normal 3.95-5.11 [facility] Comment on above: Performed By: #### L ACWARAMIS Junior, REJEC #### [address] [address] [employer]: Juan Perera MD WBC (Bld) [#/Vol] 9.3 10*3/uL Normal 3.5-11.3 [facility] Comment on above: Performed By: #### L ACWB CDP, REJEC #### [address] [address] [employer]: Juan Perera MD Auto Diff Performed NOT REPORTED Normal [facility] Comment on above: Performed By: #### L ACWB CDP, REJEC #### [address] [address] [employer]: Juan Perera MD Platelets (Bld) [#/Vol] NOT REPORTED Normal [facility] Comment on above: Performed By: #### L ARAMIS HO, REJEC #### [address] [address] [employer]: Juan Perera MD WBC Morphology NOT REPORTED Normal [facility] Comment on above: Performed By: #### L ARAMIS HO, REJEC #### [address] [address] [place] [employer]: Juan Perera MD Comp Metabolic Profon 2018 (cont.) Normal [facility] Comment on above: Result Comment: Aver age GFR for 70 or more years old: 75 mL/min/1.73sq m Chronic Kidney Disease: <60 mL/min/1.73sq m Kidney failure: <15 mL/min/1.73sq m eGFR calculated using average adult body mass. Additional eGFR calculator available at: http://www.[employer]/multiple_crcl_2011.htm Performed By: #### C P #### [address] [address] [employer]: Juan Perera MD Albumin [Mass/Vol] 3.1 g/dL Low 3.5-5.2 [facility] Comment on above: Performed By: #### C P #### [address] [address] [place] [employer]: Juan Perera MD Albumin/Globulin [Mass ratio] 0.9 {ratio} Low 1.0-2.5 [facility] Comment on above: Performed By: #### C P #### [address] [address] [place]: Juan Perera MD Alkaline Phos 68 U/L Normal 35-104 [facility] Comment on above: Performed By: #### C P #### [address] [address] [employer]: Juan Perera MD ALT [Catalytic activity/Vol] 8 U/L Normal 5-33 [facility] Comment on above: Performed By: #### C P #### [address] [address] [employer]: Juan Perera MD Anion gap [Moles/Vol] 9 mmol/L Normal 9-17 [facility] Comment on above: Performed By: #### C P #### [address] [address] [employer]: Juan Perera MD AST [Catalytic activity/Vol] 11 U/L Normal <32 [facility] Comment on above: Performed By: #### C P #### [address] [address] [employer]: Juan Perera MD Bilirubin Ql (U) 0.39 mg/dL Normal 0.3-1.2 [facility] Comment on above: Performed By: #### C P #### [address] [address] [employer]: Juan Perera MD Calcium [Mass/Vol] 8.6 mg/dL Normal 8.6-10.4 [facility] Comment on above: Performed By: #### C P #### [address] [address] [employer]: Juan Perera MD Chloride [Moles/Vol] 106 mmol/L Normal 98-107 [facility] Comment on above: Performed By: #### C P #### [address] [address] [employer]: Juan Perera MD CO2 [Moles/Vol] 25 mmol/L Normal 20-31 [facility] Comment on above: Performed By: #### C P #### [address] [address] [employer]: Juan Perera MD Creatinine [Mass/Vol] 0.68 mg/dL Normal 0.50-0.90 [facility] Comment on above: Performed By: #### C P #### [address] [address] [employer]: Juan Perera MD GFR, Amer >60 Normal >60 [facility] Comment on above: Performed By: #### C P #### [address] [address] [place] [employer]: Juan Perera MD GFR,non Amer >60 Normal >60 [facility] Comment on above: Performed By: #### C P #### [address] [address] Steel Tier: Juan Perera MD Glucose [Mass/Vol] 108 mg/dL High 70-99 [facility] Comment on above: Performed By: #### C P #### [address] [address] [place] [employer]: Juan Perera MD Potassium [Moles/Vol] 3.8 mmol/L Normal 3.7-5.3 [facility] Comment on above: Performed By: #### C P #### [address] [address] [employer]: Juan Perera MD Protein [Mass/Vol] 6.4 g/dL Normal 6.4-8.3 [facility] Comment on above: Performed By: #### C P #### [address] [address] [employer]: Juan Perera MD Sodium [Moles/Vol] 140 mmol/L Normal 135-144 [facility] Comment on above: Performed By: #### C P #### [address], [place] [id number] [place] [employer]: Juan Perera MD Urea nitrogen [Mass/Vol] 14 mg/dL Normal 8- [facility] Comment on above: Performed By: #### C P #### [facility] [address] [place] [address] [place] Tier: Juan Perera MD BUN/CRE Ratio NOT REPORTED Normal 9- [facility] Comment on above: Performed By: #### C P #### [facility] [address] [place] [address] Steel Tier: Juan Perera MD Staging: NOT REPORTED Normal [facility] Comment on above: Performed By: #### C P #### [place] [address] [place] [address] Steel Tier: Juan Perera MD Comprehensive Metabolic [facility] 08-02-2019 Albumin [Mass/Vol] 3.1 g/dL Low 3.5 - 5.2 g/dL [place] Albumin/Globulin [Mass ratio] 0.9 {ratio} Low [place] ALP [Catalytic activity/Vol] 68 U/L 35 - 104 U/L [place] ALT [Catalytic activity/Vol] 8 U/L 5 - 33 U/L [place] Anion gap [Moles/Vol] 9 mmol/L 9 - 17 mmol/L [place] AST [Catalytic activity/Vol] 11 U/L <32 [place] Bilirubin Ql (U) 0.39 mg/dL 0.3 - 1.2 mg/dL [place] Bun/Cre Ratio NOT REPORTED [place] Calcium [Mass/Vol] 8.6 mg/dL 8.6 - 10. 4 mg/dL [place] Chloride [Moles/Vol] 106 mmol/L 98 - 10 7 mmol/L [place] CO2 [Moles/Vol] 25 mmol/L 20 - 31 mmol/L [place] Creatinine [Mass/Vol] 0.68 mg/dL 0.5 - 0.9 mg/dL [place] GFR >60 >60 mL/min [place] GFR Non- >60 >60 mL/min [place] GFR/1.73 sq M predicted among non-blacks MDRD (S/P/Bld) [Vol rate/Area] [place] Comment on above: Average GFR for 70 o r more years old: 75 mL/min/1.73sq m Chronic Kidney Disease: <60 mL/min/1.73sq m Kidney failure: <15 mL/min/1.73sq m eGFR calculated using average adult body mass. Additional eGFR calculator available at: http://www.[employer]/multiple_crcl_2012.htm GFR/1.73 sq M predicted among non-blacks MDRD (S/P/Bld) [Vol rate/Area] NOT REPORTED [place] Glucose [Mass/Vol] 108 mg/dL High 70 - 99 mg/dL [place] Interpretation and review of laboratory results Abnormal [place] Potassium [Moles/Vol] 3.8 mmol/L 3.7 - 5.3 mmol/L [place] Protein [Mass/Vol] 6.4 g/dL 6.4 - 8.3 g/dL [place] Sodium [Moles/Vol] 140 mmol/L 135 - 144 mmol/L [place] Urea nitrogen [Mass/Vol] 14 mg/dL 8 - 23 mg/dL [place] LACTIC ACID, WHOLE BLOODon 1 Lactic Acid, Whole Blood 1.0 mmol/L 0.7 - 2.1 mmol/L [place] Lactic Acid,Whole Blon 08-02 Lactic Acid,Whole Bl 1.0 mmol/L Normal 0.7-2.1 [facility] Comment on above: Performed By: #### L ACWB, CDP, REJEC #### [facility] [employer] [address] [place] [phone] [place] Tier: Juan Perera MD SPECIMEN REJECTIONon 019 Ordered Test CP [place] Reason for Rejection Unable to perform t esting: Specimen hemolyzed. [place] Specimen source Nom (Unsp spec) MANAGER CONSTRUCTION [place] - NOT REPORTED [place] Specimen Rejectionon 019 Reason for rejection Unable to perform t esting: Specimen hemolyzed. [facility] Comment on above: Performed By: #### L ACWB, CDP, REJEC #### [employer] [address] [place] [id number] [place] Tier: Juan Perera MD Source of sample MANAGER CONSTRUCTION [facility] Comment on above: Performed By: #### L ACWB, CDP, REJEC #### [employer] [address] [place] [phone] Steel [employer]: Juan Perera MD Test ordered CP [facility] Comment on above: Performed By: #### L ACWB, CDP, REJEC #### [employer] [address] [place] [phone] Steel Tier: Juan Perera MD ----- NOT REPORTED [facility] Comment on above: Performed By: #### L ACWB, CDP, REJEC #### [employer] [address] [place] [phone] Steel [employer]: Juan Perera MD XR ABDOMEN FOR NG/OG/NE [...] Eduardo Horner MD 08/02/19 Final result Normal [facility] Robert, Mhpn Incoming R adiant Results From [employer]/Pacs - 08/02/2019 4:59 AM EDT EXAMINATION: ONE [...] The tube should be advanced 4 cm. [facility] [place] EXAMINATION: ONE SUP INE XRAY VIEW(S) OF [...] system. Very little bowel gas is seen. [facility] [place] The tip of the enter ic tube is in the stomach though the proximal side hole is in the esophagus. The tube should be advanced 4 cm. [facility] Routine Screeni ng Bilat.on 07-02-2018 [place] Mammogram Routine Screening Bilat. MAMMOGRAM ROUTINE SCREENING [...] lymph nodes are noted bilaterally.I CAD image railroad car checker was utilized for this study.IMPRESSION:1. NO [...] 4. False positive reports average 6 to 10%.TARIQ Stoddard #: [id number]: 07/03/2018T: 07/03/2018 Final Dictated by: Chidi Preston MD SDictated DT/TM: 07/03/18 9:47Signed (Electronic Signature): Chidi Preston MD 07/03/18 1:53 pmTechnologist: CMAAssessment: 2-Benign findingRecommendation: Normal interval follow-up [facility] Provider Orderson 06-19-2018 Protein mass conc [id number] [facility] Coding Summaryon 09-03-2017 Coding Summary CODING DATE: 017 [facility] STATUS: Home PAYOR: Medicare ADMIT [...] Waller Revised Date Saved: 06/24/2017 10:08 am [facility] Vital Signs Date Time Vital Sign Value Performing Clinician Facility 02-19-2024 19:31-0400 SaO2% (BldA) [Mass fraction] 95 % APURVA Adhikari [facility] Comment on above: Performed By: #### ELEC #### [facility] ([id number]) [address], [address] [place] [address] 02-17-2024 16:00-0400 Inhaled oxygen flow rate 3.5 L/min DO Gustavo Salas Work Phone: [facility] 02-17-2024 16:00-0400 SaO2% (BldA) [Mass fraction] 90 % DO Gustavo Salas Work Phone: [facility] 02-17-2024 14:02-0400 Body height 152.4 cm DO Gustavo Salas Work Phone: [facility] 02-17-2024 12:32-0400 Diastolic blood pressure 53 mm[Hg] DO Gustavo Salas Work Phone: [facility] 02-17-2024 12:32-0400 Heart rate 96 /min DO Gustavo Salas Work Phone: [facility] 02-17-2024 12:32-0400 Respiratory rate 18 /min DO Gustavo Salas Work Phone: [facility] 02-17-2024 12:32-0400 Systolic blood pressure 116 mm[Hg] DO Gustavo Salas Work Phone: [facility] 02-17-2024 08:00-0400 Body temperature 97.8 [degF] DO Gustavo Salas Work Phone: [facility] 02-17-2024 05:48-0400 Body weight 86.1 kg DO Gustavo Maritza Work Phone: [facility] 02-14-2024 16:43-0400 Body height 152.4 cm DO Gustavovanesa Salas Work Phone: [facility] 02-14-2024 16:43-0400 Body temperature 98.3 [degF] DO Gustavo Salas Work Phone: [facility] 02-14-2024 16:43-0400 Body weight 84.9 kg DO Gustavo Salas Work Phone: [facility] 02-14-2024 16:43-0400 Diastolic blood pressure 69 mm[Hg] DO Gustavo Salas Work Phone: [facility] 02-14-2024 16:43-0400 Heart rate 105 /min DO Gustavo Salas Work Phone: [facility] 02-14-2024 16:43-0400 Inhaled oxygen flow rate 4 L/min DO Gustavo Salas Work Phone: [facility] 02-14-2024 16:43-0400 Respiratory rate 20 /min DO Gustavo Salas Work Phone: [facility] 02-14-2024 16:43-0400 SaO2% (BldA) [Mass fraction] 92 % DO Gustavo Salas Work Phone: [facility] 02-14-2024 16:43-0400 Systolic blood pressure 119 mm[Hg] DO Gustavo Salas Work Phone: [facility] 02-10-2024 12:36-0400 Body height 152.4 cm Jenna Engle MD Work Phone: [facility] 02-10-2024 12:36-0400 Body mass index (BMI) [Ratio] 35.15 kg/m2 Jenna Engle MD Work Phone: [facility] 02-10-2024 12:36-0400 Body weight 81.65 kg Jenna Engle MD Work Phone: [facility] 02-10-2024 12:36-0400 Diastolic blood pressure 70 mm[Hg] Jenna Engle MD Work Phone: [facility] 02-10-2024 12:36-0400 Heart rate 96 /min Jenna Engle MD Work Phone: [facility] 02-10-2024 12:36-0400 Systolic blood pressure 120 mm[Hg] Jenna Engle MD Work Phone: [facility] 01-30-2024 13:31-0400 Blood Pressure Location Renae Orzech [facility] 01-30-2024 13:31-0400 Body temperature 98.24 [degF] Renae Orzech [facility] 01-30-2024 13:31-0400 Diastolic blood pressure 82 mm[Hg] Renae Orzech [facility] 01-30-2024 13:31-0400 Heart rate 84 /min Renae Orzech [facility] 01-30-2024 13:31-0400 Systolic blood pressure 118 mm[Hg] Renae Orzech [facility] 01-27-2024 13:42-0400 Body height 162.[address] 01-27-2024 13:42-0400 Body mass index (BMI) [Ratio] 32.96 kg/m2 [address] 01-27-2024 13:42-0400 Body weight 87.[address] 01-27-2024 13:42-0400 Diastolic blood pressure 78 mm[Hg] [address] 01-27-2024 13:42-0400 Systolic blood pressure 126 mm[Hg] [address] 01-06-2024 11:39-0400 Diastolic blood pressure 72 mm[Hg] Jenna Engle MD Work Phone: [facility] 01-06-2024 11:39-0400 Systolic blood pressure 128 mm[Hg] Jenna Engle MD Work Phone: [facility] 01-06-2024 11:38-0400 Body height 162.6 cm Jenna Engle MD Work Phone: [facility] 01-06-2024 11:38-0400 Body mass index (BMI) [Ratio] 32.96 kg/m2 Jenna Engle MD Work Phone: [facility] 01-06-2024 11:38-0400 Body weight 87.09 kg Jenna Engle MD Work Phone: [facility] 01-06-2024 11:38-0400 Heart rate 62 /min Jenna Engle MD Work Phone: [facility] 12-09-2023 11:08-0500 Body mass index (BMI) [Ratio] 34.18 kg/m2 Gustavo Salas DO Work Phone: [facility] 12-09-2023 11:08-0500 Body temperature 97.5 [degF] Gustavo Salas DO Work Phone: [facility] 12-09-2023 11:08-0500 Body weight 79.38 kg Gustavo Salas DO Work Phone: [facility] 12-09-2023 11:08-0500 Diastolic blood pressure 72 mm[Hg] Gustavo Salas DO Work Phone: [facility] 12-09-2023 11:08-0500 Heart rate 106 /min Gustavo Salas DO Work Phone: [facility] 12-09-2023 11:08-0500 SaO2% (BldA) [Mass fraction] 96 % Gustavo Salas DO Work Phone: [facility] 12-09-2023 11:08-0500 Systolic blood pressure 122 mm[Hg] Gustavo Salas DO Work Phone: [facility] 08-20-2023 16:32-0400 Heart rate 95 /min DO Gustavo Salas Work Phone: [facility] 08-20-2023 16:32-0400 Respiratory rate 20 /min DO Gustavo Salas Work Phone: [facility] 08-20-2023 12:00-0400 Body temperature 98.1 [degF] DO Gustavo Salas Work Phone: [facility] 08-20-2023 12:00-0400 Diastolic blood pressure 90 mm[Hg] DO Gustavo Salas Work Phone: [facility] 08-20-2023 12:00-0400 SaO2% (BldA) [Mass fraction] 95 % DO Gustavo Salas Work Phone: [facility] 08-20-2023 12:00-0400 Systolic blood pressure 125 mm[Hg] DO Gustavo Salas Work Phone: [facility] 08-20-2023 04:47-0400 Body weight 82.7 kg DO Gustavo Salas Work Phone: [facility] 08-19-2023 13:57-0400 Body height 152.4 cm DO Gustavo Salas Work Phone: [facility] 08-17-2023 20:08-0400 Diastolic blood pressure 68 mm[Hg] DO Gustavo Salas Work Phone: [facility] 08-17-2023 20:08-0400 Heart rate 80 /min DO Gustavo Salas Work Phone: [facility] 08-17-2023 20:08-0400 Respiratory rate 20 /min DO Gustavovanesa Salas Work Phone: [facility] 08-17-2023 20:08-0400 SaO2% (BldA) [Mass fraction] 95 % DO Gustavo Salas Work Phone: [facility] 08-17-2023 20:08-0400 Systolic blood pressure 132 mm[Hg] DO Gustavo Maritza Work Phone: [facility] 08-17-2023 16:09-0400 Body temperature 97.4 [degF] DO Gustavo Maritza Work Phone: [facility] 08-17-2023 16:07-0400 Body height 152.4 cm DO Gustavo Maritza Work Phone: [facility] 08-17-2023 16:07-0400 Body weight 81 kg DO Gustavo Salas Work Phone: [facility] 07-14-2023 13:39-0400 Body temperature 97.8 [degF] DO Gustavo Salas Work Phone: [facility] 07-14-2023 13:39-0400 Diastolic blood pressure 79 mm[Hg] DO Gustavo Salas Work Phone: [facility] 07-14-2023 13:39-0400 Heart rate 80 /min DO Gustavo Salas Work Phone: [facility] 07-14-2023 13:39-0400 Respiratory rate 18 /min DO Gustavo Salas Work Phone: [facility] 07-14-2023 13:39-0400 SaO2% (BldA) [Mass fraction] 94 % DO Gustavo Salas Work Phone: [facility] 07-14-2023 13:39-0400 Systolic blood pressure 110 mm[Hg] DO Gustavo Maritza Work Phone: [facility] 07-14-2023 06:00-0400 Body weight 90.1 kg DO Gustavo Maritza Work Phone: [facility] 07-11-2023 15:28-0400 Body height 152.4 cm DO Gustavo Maritza Work Phone: [facility] 07-10-2023 13:00-0400 Diastolic blood pressure 59 mm[Hg] DO Gustavo Maritza Work Phone: [facility] 07-10-2023 13:00-0400 Heart rate 72 /min DO Gustavo Maritza Work Phone: [facility] 07-10-2023 13:00-0400 Respiratory rate 18 /min DO Gustavo Maritza Work Phone: [facility] 07-10-2023 13:00-0400 SaO2% (BldA) [Mass fraction] 96 % DO Gustavo Salas Work Phone: [facility] 07-10-2023 13:00-0400 Systolic blood pressure 107 mm[Hg] DO Gustavo Maritza Work Phone: [facility] 06-17-2023 15:04-0400 Body height 152.4 cm DO Gustavo Salas Work Phone: [facility] 06-17-2023 15:04-0400 Body temperature 98.7 [degF] DO Gustavo Salas Work Phone: [facility] 06-17-2023 15:04-0400 Body weight 80.28 kg DO Gustavo Salas Work Phone: [facility] 06-17-2023 15:04-0400 Diastolic blood pressure 55 mm[Hg] DO Gustavovanesa Salas Work Phone: [facility] 06-17-2023 15:04-0400 Heart rate 76 /min DO Gustavo Maritza Work Phone: [facility] 06-17-2023 15:04-0400 Respiratory rate 19 /min DO Gustavo Maritza Work Phone: [facility] 06-17-2023 15:04-0400 SaO2% (BldA) [Mass fraction] 96 % DO Gustavo Maritza Work Phone: [facility] 06-17-2023 15:04-0400 Systolic blood pressure 110 mm[Hg] DO Gustavo Salas Work Phone: [facility] 12-31-2022 11:45-0500 Body temperature 97.3 [degF] DO Gusatvo Salas Work Phone: [facility] 12-31-2022 11:45-0500 Diastolic blood pressure 72 mm[Hg] DO Gustavo Salas Work Phone: [facility] 12-31-2022 11:45-0500 Heart rate 78 /min DO Gustavo Salas Work Phone: [facility] 12-31-2022 11:45-0500 Inhaled oxygen flow rate 2 L/min DO Gustavo Salas Work Phone: [facility] 12-31-2022 11:45-0500 Respiratory rate 18 /min DO Gustavo Salas Work Phone: [facility] 12-31-2022 11:45-0500 SaO2% (BldA) [Mass fraction] 92 % DO Gustavo Salas Work Phone: [facility] 12-31-2022 11:45-0500 Systolic blood pressure 114 mm[Hg] DO Gustavo Salas Work Phone: [facility] 12-31-2022 06:00-0500 Body weight 83.5 kg DO Gustavo Salas Work Phone: [facility] 12-27-2022 10:00-0500 Body height 152.4 cm DO Gustavo Salas Work Phone: [facility] 12-26-2022 23:00-0500 Diastolic blood pressure 60 mm[Hg] DO Gustavo Salas Work Phone: [facility] 12-26-2022 23:00-0500 Heart rate 77 /min DO Gustavovanesa Salas Work Phone: [facility] 12-26-2022 23:00-0500 Respiratory rate 18 /min DO Gustavo Salas Work Phone: [facility] 12-26-2022 23:00-0500 SaO2% (BldA) [Mass fraction] 94 % DO Gustavo Salas Work Phone: [facility] 12-26-2022 23:00-0500 Systolic blood pressure 130 mm[Hg] DO Gustavo Salas Work Phone: [facility] 12-26-2022 18:59-0500 Body height 152.4 cm DO Gustavo Salas Work Phone: [facility] 12-26-2022 18:59-0500 Body temperature 98.8 [degF] DO Gustavo Salas Work Phone: [facility] 12-26-2022 18:59-0500 Body weight 84.3 kg DO Gustavo Salas Work Phone: [facility] 11-22-2022 11:25-0500 Body temperature 97.5 [degF] DO Gustavo Salas Work Phone: [facility] 11-22-2022 11:25-0500 Diastolic blood pressure 68 mm[Hg] DO Gustavo Salas Work Phone: [facility] 11-22-2022 11:25-0500 Heart rate 72 /min DO Gustavo Salas Work Phone: [facility] 11-22-2022 11:25-0500 Respiratory rate 22 /min DO Gustavo Salas Work Phone: [facility] 11-22-2022 11:25-0500 SaO2% (BldA) [Mass fraction] 93 % DO Gustavo Salas Work Phone: [facility] 11-22-2022 11:25-0500 Systolic blood pressure 146 mm[Hg] DO Gustavo Maritza Work Phone: [facility] 11-22-2022 10:26-0500 Body height 152.4 cm DO Gustavo Salas Work Phone: [facility] 11-22-2022 10:26-0500 Body weight 87.9 kg DO Gustavo Salas Work Phone: [facility] 05-31-2022 15:12-0400 Diastolic blood pressure 75 mm[Hg] DO Gustavo Salas Work Phone: [facility] 05-31-2022 15:12-0400 Heart rate 69 /min DO Gustavo Salas Work Phone: [facility] 05-31-2022 15:12-0400 Respiratory rate 25 /min DO Gustavo Salas Work Phone: [facility] 05-31-2022 15:12-0400 SaO2% (BldA) [Mass fraction] 98 % DO Gustavo Salas Work Phone: [facility] 05-31-2022 15:12-0400 Systolic blood pressure 156 mm[Hg] DO Gustavo Salas Work Phone: [facility] 05-31-2022 11:02-0400 Body height 154.94 cm DO Gustavo Salas Work Phone: [facility] 05-31-2022 11:02-0400 Body temperature 97.1 [degF] DO Gustavo Salas Work Phone: [facility] 05-31-2022 11:02-0400 Body weight 86.18 kg DO Gustavo Salas Work Phone: [facility] 08-04-2019 08:30-0400 Body Temperature 97.81 [degF] Hayden Watters [facility], [place] 08-04-2019 08:30-0400 BP Diastolic 69 mm[Hg] Hayden Watters [facility] [place] 08-04-2019 08:30-0400 BP Systolic 161 mm[Hg] Hayden Watters [facility], [place] 08-04-2019 08:30-0400 Pulse (Heart Rate) 78 /min [facility] [place] 08-04-2019 08:30-0400 Pulse Oximetry 92 % [facility] [place] 08-04-2019 08:30-0400 Respiratory Rate 18 /min [facility] [place] 08-02-2019 01:00-0400 BMI (Body Mass Index) 34.44 kg/m2 [facility] [place] 08-02-2019 01:00-0400 Body weight 82.67 kg [facility] [place] 08-02-2019 01:00-0400 Height 154.9 cm [facility] [place] Encounters Encounter Date Encounter Type Care Provider Facility Start: 07-02-2024 End: 07-02-2024 ambulatory RUPERTO BARBOZA Not Available Start: 06-22-2024 End: 06-22-2024 ambulatory GUSTAVO SALAS Not Available Start: 05-22-2024 End: 05-22-2024 ambulatory GUSTAVO A MARITZA Not Available Start: 05-16-2024 End: 05-16-2024 ambulatory RUPERTO BARBOZA Not Available Start: 05-06-2024 End: 05-06-2024 ambulatory GUSTAVO MCHUGHMAN Not Available Start: 05-06-2024 End: 05-06-2024 ambulatory GUSTAVO SALAS Not Available Start: 04-27-2024 End: 04-27[facility] Start: 04-13-2024 End: 04-13-2024 ambulatory [facility] Start: 04-08-2024 End: 04-08-2024 ambulatory [facility] Start: 04-02-2024 End: 04-02-2024 ambulatory [facility] Start: 03-30-2024 End: 03-30-2024 ambulatory KEIKO BOWDEN [facility] Start: 03-18-2024 End: 03-18-2024 ambulatory KEIKO BOWDEN [facility] Start: 03-17-2024 End: 03-17-2024 ambulatory GINNY BELCHER [facility] Start: 03-11-2024 End: 03-11-2024 [facility] Start: 03-05-2024 End: 03-05-2024 ambulatory TODD Leonard [facility] Start: 03-04-2024 End: 03-04-2024 ambulatory GUSTAVO Person [facility] Start: 03-03-2024 End: 03-03-2024 ambulatory TODD Leonard [facility] Start: 03-02-2024 End: 03-02-2024 ambulatory TODD Leonard [facility] Start: 02-27-2024 End: 02-27-2024 ambulatory TODD POSEY [facility] Start: 02-19-2024 End: 02-26-2024 Emergency department patient visit OVIDIO [facility] Start: 02-19-2024 End: 02-25-2024 Evaluation and management of inpatient GUSTAVO Person [facility] Start: 02-19-2024 End: 02-26-2024 Emergency department patient visit OVIDIO J [facility] Start: 02-14-2024 Non-patient / Non-visit DO David Salas Work Phone: [facility] Work Phone: Start: 02-14-2024 End: 02-17-2024 Evaluation and management of inpatient DO Gustavo Salas Work Phone: [facility] Work Phone: Start: 02-10-2024 End: 02-10-2024 ambulatory [facility] Start: 02-10-2024 End: 02-10-2024 Office outpatient visit 25 minutes Jenna Engle MD Work Phone: [facility] Comment on above: Shortness of breath; Coronary artery disease involving [place] coronary artery of [place] heart without angina pectoris; History of PTCA; Essential hypertension; Hyperlipidemia, mixed; Obstructive sleep apnea syndrome; BMI 35.0-35.9,adult; Current smoker; Chronic hypoxemic respiratory failure (Multi); Encounter to discuss test results Start: 02-05-2024 End: 02-05-2024 ambulatory GUSTAVO SALAS Not Available Start: 01-30-2024 End: 01-31-2024 ambulatory Renae X Orzech Facility:[facility] Start: 01-30-2024 End: 01-31-2024 ambulatory Renae X Orzech Facility:[facility] Start: 01-30-2024 End: 01-30-2024 Lab Drop off Renae X Orzech [facility] Start: 01-30-2024 End: 01-30-2024 Patient encounter procedure Renae X Orzech [facility] Start: 01-27-2024 End: 01-28-2024 ambulatory [facility] Start: 01-27-2024 End: 01-27-2024 Subsequent hospital visit by physician Magnolia Garzon Echo/Vasc Room 2 [facility] Comment on above: Shortness of breath Start: 01-13-2024 ambulatory Renae Orzech Facility: [facility] Start: 01-10-2024 End: 01-10-2024 ambulatory GUSTAVO SALAS Not Available Start: 01-06-2024 End: 01-06-2024 Patient encounter procedure DO Gustavo Salas Work Phone: [facility] Work Phone: Start: 01-06-2024 End: 01-06-2024 ambulatory [facility] Start: 01-06-2024 End: 01-06-2024 Office consultation new/estab patient 80 min Jenna Engle MD Work Phone: [facility] Comment on above: Shortness of breath; Coronary artery disease involving [place] coronary artery of [place] heart without angina pectoris; Stage 3b chronic [...] 40 minutes Gustavo Salas DO Work Phone: [facility] Comment on above: SOB (shortness of br eath) (Primary Dx); Wheezing; Urinary tract bacterial infections; Essential hypertension (CMS/HCC); Mixed hyperlipidemia (CMS/HCC); Stage 3a chronic kidney disease (HCC) (CMS/HCC); Sepsis with acute renal failure without septic shock, due to unspecified organism, unspecified acute renal failure type (CMS/HCC); Hospital discharge follow-up; Medication management; Female bladder prolapse; Pulmonary emphysema, unspecified emphysema type (CMS/HCC) Start: 11-12-2023 [facility] Start: 10-31-2023 Chart abstracting Scanning Pro vider External [facility] Start: 10-30-2023 Telephone encounter Amrit carnes [facility] Comment on above: Neuro Appt Start: 10-21-2023 End: 10-24-2023 Evaluation and management of inpatient NANCY BERRY [facility] Start: 10-18-2023 End: 10-24-2023 Evaluation and management of inpatient PAUL CONTRERAS [facility] Start: 10-17-2023 End: 12-28-2023 Evaluation and management of inpatient BING CLAUDIO TAPIA [facility] Start: 10-15-2023 End: 10-24-2023 Evaluation and management of inpatient ASHLEY MOONEY [facility] Start: 10-14-2023 End: 10-24-2023 [facility] Start: 10-10-2023 End: 10-24-2023 Evaluation and management of inpatient TOPEKA E [facility] Start: 10-08-2023 End: 10-24-2023 Evaluation and management of inpatient NOE OSEI [facility] Start: 10-06-2023 End: 10-24-2023 Evaluation and management of inpatient SUSANA VELAZQUEZ [facility] Start: 10-06-2023 End: 10-24-2023 Evaluation and management of inpatient FRANCINE YANG [facility] Start: 10-06-2023 End: 10-24-2023 Evaluation and management of inpatient SHEILA RODRIGUEZ [facility] Start: 10-05-2023 End: 10-24-2023 Evaluation and management of inpatient RABBIA L MARIELA [facility] Start: 10-05-2023 End: 10-23-2023 Evaluation and management of inpatient ALI TRINA [facility] Start: 08-17-2023 End: 08-20-2023 Evaluation and management of inpatient DO Gustavo Salas Work Phone: [facility] Work Phone: Start: 07-10-2023 End: 07-14-2023 Evaluation and management of inpatient DO Gustavo Salas Work Phone: [facility] Work Phone: Start: 06-17-2023 End: 06-17-2023 Emergency department patient visit DO Gustavo Salas Work Phone: [facility] Work Phone: Start: 04-01-2023 End: 04-26-2023 Patient encounter procedure Gustavo Salas DO Work Phone: [facility] Start: 01-22-2023 ambulatory NARCISO WHITINGY . Facility:[facility] Start: 12-27-[address] Charlie Gao II Facility:[id number] Start: 12-26-2022 End: 12-31-2022 Evaluation and management of inpatient DO Gustavo Salas Work Phone: [facility] Work Phone: Start: 11-22-2022 End: 11-22-2022 Emergency department patient visit DO Gustavo Salas Work Phone: [facility] Work Phone: Start: 05-31-2022 End: 05-31-2022 Emergency department patient visit DO Gustavo Salas Work Phone: [facility] Start: 05-03-2022 End: 05-03-2022 ambulatory Jorge A Renetta Other [employer] Other Start: 05-03-2022 Telephone encounter Jorge A Renetta [facility] Start: 04-24-2022 End: 04-24-2022 ambulatory Jorge A Renetta Other [employer] Other Start: 04-24-2022 Telephone encounter Jorge A Renetta [facility] Start: 03-12-[address] Charlie Mondragon II Facility: Start: 03-08-2022 End: 03-08-2022 ambulatory Jorge A Renetta Other [employer] Other Start: 03-08-2022 Telephone encounter Jorge A Renetta [facility] Start: 01-18-2022 End: 01-18-2022 ambulatory Tanya Cesar Other [employer] Other Start: 01-18-2022 Telephone encounter Tanya Guerrero [facility] Start: 10-26-2021 End: 10-26-2021 ambulatory Jorge A Jackson Other [facility] [employer] Other Start: 10-26-2021 Telephone encounter Jorge A Jackson [facility] Start: 08-02-2019 End: 08-04-2019 Evaluation and management of inpatient CRYS BARBOZA [facility] Start: 08-01-2019 End: 08-04-2019 Evaluation and management of inpatient Hayden Bueno Work Phone: [facility] Start: 07-03-2018 End: 07-03-2018 Patient encounter Mely Camarillo Facility:[facility] Procedures Date Procedure Procedure Detail Performing Clinician Start: 03-17-2024 Follow-up visit Follow-up CARY BELCHER Start: 02-19-2024 Cyclic citrullinated peptide antibody APURVA SIERRA Comment on above: Result Comment: Interpretation-------- <3 Negative >=3 Positive Performed By: #### E LEC #### [facility] ([id number]) [address] [place] [address], [address] [place] [address] Start: 02-16-2024 Investigation of transfusion reaction DO Gustavo Salas Work Phone: Start: 02-15-2024 Lactoferrin measurement DO Gustavo Salas Work Phone: Start: 02-15-2024 Stool culture for bacteria DO Gustavo Salas Work Phone: Start: 02-14-2024 SARS-CoV-2, Influenz a & RSV (PCR) DO Gustavo Maritza Work Phone: Start: 02-14-2024 Urine culture DO Jennifer Mchughman Work Phone: Start: 02-14-2024 Computed tomography of abdomen and pelvis with contrast DO Gustavo Salas Work Phone: Start: 02-14-2024 Duplex scan of lower limb veins DO Gustavo Salas Work Phone: Start: 02-14-2024 Plain chest X-ray DO Corwin Salas Work Phone: Start: 02-10-2024 FOLLOW UP IN CARDIOLOGY JENNA ENGLE Start: 01-27-2024 TRANSTHORACIC ECHO ( TTE) COMPLETE JENNA ENGLE Start: 01-06-2024 ECG 12-LEAD JENNARaza ESCOBAR Start: 01-06-2024 CBC panel - Blood [...] Phone: Start: 10-23-2023 Cyclic citrullinated peptide antibody APRUVA SIERRA Comment on above: Result Comment: Interpretation-------- <3 Negative >=3 Positive Performed By: #### C SRINI, BMP, [id number], [id number] #### [facility] ([id number]) [address], [address] [place] [address] Start: 10-06-2023 Adult depression screening assessment Amrit [...] Start: 12-27-2022 X-ray of left knee DO Herminio Salas Work Phone: Start: 12-27-2022 Duplex scan [...] 08-04-2019 Blood count complete auto&auto difrntl wbc Mahmud Al Furgani Work Phone: Start: 08-03-2019 MISCELLANEOUS NURSIN G CARE ORDER (SPECIFY) CRYS BARBOZA Start: 08-03-2019 Radiologic exam abdo men 1 view CRYS BARBOZA Start: 08-03-2019 INITIATE OXYGEN THER APY PROTOCOL CRYS BARBOZA Start: 08-03-2019 Radiologic exam abdo men 1 view Nona Blake Work Phone: Start: 08-03-2019 Blood count complete auto&auto difrntl wbc CRYS BARBOZA Start: 08-03-2019 Comprehensive metabo lic panel CRYS BARBOZA Start: 08-03-2019 Blood count complete auto&auto difrntl wbc Mahmud Al Furgani Work Phone: Start: 08-03-2019 Comprehensive metabo lic panel Mahmud Al Furgani Work Phone: Start: 08-02-2019 TELEMETRY MONITORING ALEX BARBOZA Start: 08-02-2019 Comprehensive metabo lic panel CRYS BARBOZA Start: 08-02-2019 PREVIOUS SPECIMEN CRYS JABARI Start: 08-02-2019 NURSING COMMUNICATION Aisha NATHAN JABARI Start: 08-02-2019 INITIATE OXYGEN THER APY PROTOCOL CRYS BARBOZA Start: 08-02-2019 Comprehensive metabo lic panel Verenice Chilel Work Phone: Start: 08-02-2019 Assay of lactate CRYS JABARI Start: 08-02-2019 Blood count complete auto&auto difrntl wbc CRYS JABARI Start: 08-02-2019 Drug tst prsmv instr mnt chem analyzers pr date CRYS BARBOZA Start: 08-02-2019 Assay of lactate Marisol Ojeda Work Phone: Start: 08-02-2019 Blood count complete auto&auto difrntl wbc Mahmud Al Furgani Work Phone: Start: 08-02-2019 SPECIMEN REJECTION Mahm ud Duong Richardson Work Phone: Start: 08-02-2019 Radiologic exam abdo men 1 view CRYSRaza BARBOZA Start: 08-02-2019 TUBE INSERTION CRYS ACEVEDO Start: 08-02-2019 Radiologic exam abdo men 1 view Marisol Lynette Work Phone: Start: 08-02-2019 IP CONSULT TO GENERA L SURGERY CRYS BARBOZA Start: 08-02-2019 FULL CODE CRYS BK Hill Start: 08-02-2019 INITIATE OXYGEN THER APY PROTOCOL CRYSRaza BARBOZA Start: 08-01-2019 PATIENT STATUS (DIRECT) CRYS BARBOZA History of percutane ous transluminal coronary angioplasty History of PTCA Jenna Engle MD Work Phone: History of placement of stent for coronary artery disease S/P right coronary artery (RCA) stent placement Renae Ponce Plan of Treatment Date Care Activity Detail Author Start: 01-26-2025 Echocardiography Echocardiogram [facility] Start: 10-23-2024 Adult BMI Screening Adult BMI Screening [facility] Start: 10-07-2024 Echocardiography Echocardiogram [facility] Start: 10-06-2024 Depression Screening Depression Screening [facility] Start: 10-06-2024 Tobacco Screening Tobacco Screening [facility] Start: 04-27-2024 Screening for osteoporosis Bone Density Scan [facility] Start: 04-01-2024 Medicare Annual Wellness (AWV) Medicare Annual Wellness (AWV) [facility] [facility] Start: 02-19-2024 [facility] Start: 02-18-2024 [facility] Start: 02-17-2024 [facility] Start: 02-16-2024 Microbial culture of sputum [facility] Start: 02-14-2024 [facility] Start: 02-14-2024 Referral to Tacker El[employer] [facility] Start: 02-14-2024 [facility] Start: 02-14-2024 Hospital admission [facility] Start: 02-14-2024 Bacteria identified in Blood by Culture [facility] Start: 02-14-2024 Bacteria identified in Urine by Culture [facility] Start: 02-14-2024 Blood culture for bacteria, including anaerobic screen Blood Culture [facility] Start: 02-14-2024 Duplex scan of lower limb veins US venous duplex LE RT [facility] Start: 02-14-2024 US Lower extremity vein - right [facility] Start: 02-10-2024 End: 02-10-2024 Patient encounter procedure 02/10/2024 12:30 PM EDT Office Visit [place] [id number] [place] [address] Jenna Engle MD [address] [place] [address] [address] [place], [place] [id number] [facility] Start: 01-27-2024 End: 01-27-2024 Patient encounter procedure 01/27/2024 1:30 PM EDT Appointment [place] [id number] [place] [address] [facility] Start: 01-10-2024 End: 01-10-2024 Patient encounter procedure 01/10/2024 2:00 PM EDT Office Visit [facility] [address] [place] [address] William Gallagher MD [address] [facility] [place] [address] [facility] Start: 01-06-2024 End: 01-05-2025 CBC panel - Blood by Automated count CBC Lab Routine Shortness of breath Expected: 01/06/2024 (Approximate), Expires: 01/05/2025 [facility] Work Phone: Comment on above: Expected: 01/06/2024 (Approximate), Expi res: 01/05/2025 Start: 01-06-2024 End: 01-05-2025 Comprehensive metabolic 2000 panel - Serum or Plasma Comprehensive Metabolic Panel Lab Routine Shortness of breath Expected: 01/06/2024 (Approximate), Expires: 01/05/2025 [facility] Work Phone: Comment on above: Expected: 01/06/2024 (Approximate), Expi res: 01/05/2025 Start: 01-06-2024 End: 01-05-2025 Erythrocyte sedimentation rate Sedimentation Rate Lab Routine Shortness of breath Expected: 01/06/2024 (Approximate), Expires: 01/05/2025 [facility] Work Phone: Comment on above: Expected: 01/06/2024 (Approximate), Expi res: 01/05/2025 Start: 01-06-2024 End: 01-05-2025 Natriuretic peptide B [Mass/volume] in Blood B-Type Natriuretic Peptide Lab Routine Shortness of breath Expected: 01/06/2024 (Approximate), Expires: 01/05/2025 [facility] Work Phone: Comment on above: Expected: 01/06/2024 (Approximate), Expi res: 01/05/2025 Start: 01-06-2024 End: 01-05-2026 US Heart Transthoracic Transthoracic Echo Complete Echocardiography Routine Shortness of breath Expected: 01/06/2024 (Approximate), Expires: 01/05/2026 [facility] Service [facility] Work Phone: Comment on above: Expected: 01/06/2024 (Approximate), Expi res: 01/05/2026 Start: 01-06-2024 End: 01-05-2025 XR Chest 2 Views XR chest 2 views Imaging Routine Shortness of breath Expected: 01/06/2024 (Approximate), Expires: 01/05/2025 [facility] Work Phone: Comment on above: Expected: 01/06/2024 (Approximate), Expi res: 01/05/2025 Start: 12-30-2023 End: 12-30-2023 Patient encounter procedure 12/30/2023 11:15 AM EST Office Visit [facility] [address] [place] [address] Gustavo Salas DO [address] [place] [address] [facility] Start: 12-16-2023 End: 12-16-2023 Patient encounter procedure 12/16/2023 11:30 AM EST Office Visit [facility] [address] [place] [phone] Yovani Glover PA-C [address] [place] [address] [facility] Start: 12-09-2023 End: 12-09-2024 Bacteria identified in Urine by Culture Urine culture (clean catch) Microbiology Routine Urinary tract bacterial infections Expected: 12/09/2023 (Approximate), Expires: 12/09/2024 [facility] Comment on above: Expected: 12/09/2023 (Approximate), Expi res: 12/09/2024 Start: 12-09-2023 End: 12-09-2024 CBC W Auto Differential panel - Blood CBC and differential Lab Routine Essential hypertension (CMS/HCC) Expected: 12/09/2023 (Approximate), Expires: 12/09/2024 [facility] Work Phone: Comment on above: Expected: 12/09/2023 (Approximate), Expi res: 12/09/2024 Start: 12-09-2023 End: 12-09-2024 Comprehensive metabolic 2000 panel - Serum or Plasma Comprehensive metabolic panel Lab Routine Essential hypertension (CMS/HCC) Expected: 12/09/2023 (Approximate), Expires: 12/09/2024 [facility] Comment on above: Expected: 12/09/2023 (Approximate), Expi res: 12/09/2024 Start: 12-09-2023 End: 12-09-2024 Magnesium [Mass/volume] in Serum or Plasma Magnesium Lab Routine Stage 3a chronic kidney disease (HCC) (CMS/HCC) Expected: 12/09/2023 (Approximate), Expires: 12/09/2024 [facility] Comment on above: Expected: 12/09/2023 (Approximate), Expi res: 12/09/2024 Start: 11-11-2023 End: 11-11-2023 Patient encounter procedure 11/11/2023 9:15 AM EST Office Visit [facility] [address] [place] [phone] Jose Martin Galicia MD [address] [place] [address] [facility] Start: 11-05-2023 End: 11-05-2023 Patient encounter procedure 11/05/2023 12:30 PM EST Office Visit [facility] [address] [place] [phone] Yovani Glover PA-C [address] [place] [address] [facility] Start: 08-20-2023 [facility] Start: 08-19-2023 Stool culture for bacteria Stool Culture [facility] Start: 08-18-2023 Blood chemistry [facility] Start: 08-18-2023 Duplex scan of lower limb veins US venous duplex LE BI [facility] Start: 08-18-2023 [facility] Start: 08-18-2023 Referral to [employer] [facility] Start: 08-17-2023 Hospital admission [facility] Start: 08-17-2023 Physical therapy procedure [facility] Start: 08-17-2023 Referral to occupational therapist [facility] Start: 08-17-2023 [facility] Start: 08-17-2023 Bacteria identified in Stool by Culture [facility] Start: 08-17-2023 [facility] Start: 08-17-2023 Bacteria identified in Blood by Culture [facility] Start: 08-17-2023 Blood culture for bacteria, including anaerobic screen Blood Culture [facility] Start: 07-14-2023 [facility] Start: 07-10-2023 Bacteria identified in Blood by Culture Blood Culture [facility] Start: 07-10-2023 Bacteria identified in Urine by Culture Urine Culture [facility] Start: 07-10-2023 Blood culture for bacteria, including anaerobic screen Blood Culture [facility] Start: 07-10-2023 Hospital admission [facility] Start: 02-26-2023 Hemoglobin A1c measurement Diabetes: Hemoglobin A1C [facility] Start: 12-31-2022 [facility] Start: 12-26-2022 Hospital admission [facility] Start: 12-26-2022 Referral to [employer] [facility] Start: 12-26-2022 [facility] Start: 12-26-2022 [facility] Start: 08-03-2020 Creatinine monitoring Creatinine monitoring [place], [place] Start: 08-03-2020 Potassium monitoring Potassium monitoring [place], [place] Start: 08-02-2019 Annual Wellness Visit (AWV) Annual Wellness Visit (AWV) [place] Start: 06-28-2019 Influenza vaccination Flu vaccine (#1) [place] Start: 2010 DEXA (modify frequency per FRAX score) DEXA (modify frequency per FRAX score) [place] Start: 2010 Fall Risk Screening Fall Risk Screening [facility] [facility] Start: 2010 Pneumococcal 65+ years Vaccine (1 of 2 - PCV13) Pneumococcal 65+ years Vaccine (1 of 2 - PCV13) [place] Start: 1995 Administration of varicella zoster vaccine Zoster (Shingles) Vaccine (1 of 2) [facility] [facility] Start: 1995 Breast cancer screen Breast cancer screen [place], [place] Start: 1995 Colon cancer screen colonoscopy Colon cancer screen colonoscopy [place] Start: 1995 Shingles Vaccine (1 of 2) Shingles Vaccine (1 of 2) [place] Start: 1995 Zoster Vaccines (1 of 2) Zoster Vaccines (1 of 2) [facility] Start: 1967 DTaP/Tdap/Td Vaccines (1 - Tdap) DTaP/Tdap/Td Vaccines (1 - Tdap) [facility] Start: 1964 DTaP,Tdap and Td Vaccines (1 - Tdap) DTaP,Tdap and Td Vaccines (1 - Tdap) [facility] Start: 1964 DTaP/Tdap/Td vaccine (1 - Tdap) DTaP/Tdap/Td vaccine (1 - Tdap) [place] Start: 1964 Urine screening for protein Diabetes: Urine Protein Screening [facility] Start: 1963 Adult BMI Follow Up Plan Adult BMI Follow Up Plan [facility] Start: 1963 Diabetes mellitus screening Diabetes Screening [facility] Start: 1963 Hepatitis C screening Hepatitis C Screening [facility] Start: 1955 Glaucoma screening Diabetes: Retinopathy Screening [facility] Start: 1955 Lipid screen Lipid screen [place] Start: 1945 Creatinine measurement Creatinine Level [facility] Start: 1945 Hepatitis C screen Hepatitis C screen [place] Start: 1945 Lipid panel Lipid Panel [facility] Start: 1945 Medicare Annual Wellness Visit [facility] Start: 1945 Potassium measurement Potassium Level [facility] Start: 1945 Tobacco Counseling Tobacco Counseling [facility] Anion gap measurement [facility] Basophils [#/volume] in Blood by Automated count [facility] Basophils/100 leukoc ytes in Blood by Automated count [facility] Eosinophils [#/volum e] in Blood [facility] Eosinophils/100 leukocytes in Blood by Automated count [facility] Erythrocyte distribu tion width [Ratio] by Automated count [facility] Erythrocytes [#/volu me] in Blood [facility] Hematocrit [Volume Fraction] of Blood [facility] Hemoglobin [Mass/vol ume] in Blood [facility] Initiate Oxygen Ther apy Protocol Initiate Oxygen Therapy Protocol Respiratory Care Routine Daily until discontinued starting 08/02/2019 [place] Comment on above: Daily until discontinued starting 2018 Leukocytes [#/volume ] corrected for nucleated erythrocytes in Blood by Automated coun [facility] Leukocytes [#/volume ] in Blood [facility] Lymphocytes [#/volum e] in Blood by Automated count [facility] Lymphocytes/100 leukocytes in Blood by Automated count [facility] MCH [Entitic mass] b y Automated count [facility] MCHC [Mass/volume] b y Automated count [facility] MCV [Entitic volume] by Automated count [facility] Monocytes [#/volume] in Blood by Automated count [facility] Monocytes/100 leukoc ytes in Blood by Automated count [facility] Neutrophils [#/volum e] in Blood by Automated count [facility] Neutrophils/100 leukocytes in Blood by Automated count [facility] Nucleated erythrocyt es [Presence] in Blood by Automated count [facility] Patient Education [facility] Work Phone: Patient referral [facility] Work Phone: Platelet mean volume [Entitic volume] in Blood by Automated count [facility] Platelets [#/volume] in Blood [facility] End: 08-02-2019 PREVIOUS SPECIMEN PREVIOUS SPECIMEN Lab Routine Once for 1 Occurrences starting 08/02/2019 until 08/02/2019 [facility] Comment on above: Once for 1 Occurrences starting 08/02/20 19 until 08/02/2019 PREVIOUS SPECIMEN PREVIOUS SPECI MEN Lab Routine 08/02/2019 9:43 AM EDT [facility] Urinalysis complete panel - Urine Urinalysis with microscopic Lab Routine Urinary tract bacterial infections Stage 3a chronic kidney disease (HCC) (CMS/HCC) Ordered: 12/09/2023 [facility] Comment on above: Ordered: 12/09/2023 End: 01-27-2024 US Heart Transthoracic [facility] Service Area Work Phone: Comment on above: Once for 1 Occurrences starting 01/27/20 24 until 01/27/2024 Immunizations Immunization Date Immunization Notes Care Provider Napoleon garibay 09-02-2023 Influenza, High-dose , Quadrivalent Tony-Ginger [facility] 01-07-2023 SARS-COV-2 (COVID-19 ) vaccine, mRNA, spike protein, LNP, bivalent, preservative free, 30 mcg/0.3 mL dose, monserrat-sucrose formulation Gustavo Salas DO Work Phone: [facility] 12-31-2022 tuberculin skin test ; purified protein derivative solution, intradermal -Ginger [facility] 07-30-2022 influenza, high dose seasonal, preservative-free Ta-Ginger [facility] 07-30-2022 Influenza, High-dose Seasonal, Quadrivalent, Preservative Free Gustavo Salas DO Work Phone: [facility] 06-08-2021 pneumococcal polys[facility], [facility] 03-09-2021 COVID-19 Moderna Tanya Cesar Other [facility] Other 02-10-2021 COVID-19 Moderna Tanya Cesar Other [facility] Other 11-07-2020 influenza, high dose seasonal, preservative-free -Ginger [facility] 11-07-2020 influenza, seasonal, injectable Jenna Engle MD Work Phone: [facility] Work Phone: 08-04-2020 Seasonal trivalent influenza vaccine, adjuvanted, preservative free [facility] 07-14-2018 influenza, high dose seasonal, preservative-free Jorge A Renetta Other [employer] Other 07-14-2018 influenza virus vaccine, unspecified formulation DO Gustavo Salas Work Phone: [facility] 07-13-2018 Influenza, High-dose , Quadrivalent Ta-Ginger [facility] 08-02-2017 influenza, high dose seasonal, preservative-free Jorge A Renetta Other [facility] Other 08-02-2017 influenza virus vaccine, unspecified formulation DO Gustavo Salas Work Phone: [facility] 08-01-2017 Influenza, High-dose , Quadrivalent Ta-Ginger Cuffie [facility] 07-26-2016 pneumococcal conjuga te vaccine, 13 valent Jorge A Renetta Other [facility] Other 07-26-2016 influenza, high dose seasonal, preservative-free Jorge A Renetta Other [facility] Other 07-26-2016 influenza virus vaccine, unspecified formulation DO Gustavo Salas Work Phone: [facility] 07-25-2016 Influenza, High-dose , Quadrivalent Ta-Ginger Cuffie [facility] 08-23-2015 influenza, high dose seasonal, preservative-free Jorge A Renetta Other [facility] Other 08-23-2015 influenza virus vaccine, unspecified formulation DO Gustavo Salas Work Phone: [facility] 08-22-2015 Influenza, High-dose , Quadrivalent Ta-Ginger Cuffie [facility] 10-28-2014 pneumococcal polysaccharide vaccine, 23 valent Jenna Engle MD Work Phone: [facility] Work Phone: 07-26-2014 influenza, seasonal, injectable Ta-Ginger Cuffie [facility] 07-08-2014 influenza, injectabl e, quadrivalent, contains preservative Jorge A Renetta Other [facility] 09-28-2013 influenza, injectabl e, quadrivalent, contains preservative Jorge A Renetta Other [facility] 12-04-2010 pneumococcal conjuga te vaccine, 7 valent Jorge A Renetta Other [facility] Other 12-04-2010 pneumococcal Conjuga te, unspecified formulation DO Gustavo Salas Work Phone: [facility] Payers Date Payer Category Payer Medicaid [id number] 2024 Unknown [id number] 2024 Self-pay [id number] 2023 Private Health Insurance [employer] DUAL COMPLETE [employer] DUAL [employer]PLETE [id number] 2023-Present [address] [address] [place] [address] [id number] .[id number] 2022 Medicare [id number] [id number] .[id number] 2021 Medicaid [id number]. [id number] .[id number] 2018 Medicare [id number] 2017 Private Health Insurance [id number] 2014 Medicaid [id number] 2014 Medicaid MEDICAID [facility] DEPT OF JOB xxxxxxxxxxxx 2014-Present [phone] [address] [place] [address] xxxxxxxxxxxx [id number] .[id number] 2014 Medicare [id number] 2014 Medicare MEDICARE MEDICAR E PART A AND B xxxxxxxxxxx 2014-Present [phone] [address] [address] [place] [address] xxxxxxxxxxx 1.2.840.000231.1.13.239.2 .7.3.255960.315 1945 Unknown [id number] 2.16.840.1.166287.3.579.2 .175 1945 Unknown [id number] 2.16.840.1.718297.3.579.2 .356 1945 Unknown [id number] 2.16.840.1.012550.3.579.2 .356 1945 Unknown [id number] 2.16.840.1.107927.3.579.2 .593 1945 Unknown [id number] 2.16.840.1.334436.3.579.2 .1246 1945 Unknown [id number] 2.16.840.1.249268.3.579.2 .1244 1945 Unknown [id number] 2.16.840.1.454564.3.579.2 .1244 1945 Unknown [id number] 2.16.840.1.934064.3.579.2 .727 1945 Unknown [id number] 2.16.840.1.819560.3.579.2 .727 1945 Unknown [id number] 2.16.840.1.184546.3.579.2 .1286 1945 Unknown [id number] 2.16.840.1.746408.3.579.2 .1286 1945 Unknown [id number] 2.16.840.1.778481.3.579.2 .1286 1945 Unknown [id number] 2.16.840.1.066376.3.579.2 .1286 1945 Unknown [id number] 2.16.840.1.918705.3.579.2 .1286 1945 Unknown [id number] 2.16.840.1.349266.3.579.2 .1286 1945 Unknown [id number] 2.16.840.1.008171.3.579.2 .1286 1945 Unknown [id number] 2.16.840.1.094381.3.579.2 .1286 1945 Unknown [id number] 2.16.840.1.998228.3.579.2 .1286 1945 Unknown [id number] 2.16.840.1.467415.3.579.2 .1286 1945 Unknown [id number] 2.16.840.1.728097.3.579.2 .1286 1945 Unknown [id number] 2.16.840.1.675406.3.579.2 .1286 1945 Unknown [id number] 2.16.840.1.732949.3.579.2 .1285 1945 Unknown [id number] 2.16.840.1.964910.3.579.2 .128 1945 Unknown [id number] 2.16.840.1.635982.3.579.2 .1285 1945 Unknown [id number] 2.16.840.1.921842.3.579.2 .128 1945 Unknown [id number] 2.16.840.1.409507.3.579.2 .1285 1945 Unknown [id number] 2.16.840.1.667411.3.579.2 .1286 1945 Unknown [id number] 2.16.840.1.138576.3.579.2 .128 1945 Unknown [id number] 2.16.840.1.605964.3.579.2 .1286 1945 Unknown [id number] 2.16.840.1.963992.3.579.2 .1285 1945 Unknown [id number] 2.16.840.1.621978.3.579.2 .128 1945 Unknown [id number] 2.16.840.1.542153.3.579.2 .1285 1945 Unknown [id number] 2.16.840.1.046175.3.579.2 .1285 1945 Unknown [id number] 2.16.840.1.581741.3.579.2 .1285 1945 Unknown [id number] 2.16.840.1.313189.3.579.2 .1285 1945 Unknown [id number] 2.16.840.1.982793.3.579.2 .1285 1945 Unknown [id number] 2.16.840.1.391546.3.579.2 .1285 1945 Unknown [id number] 2.16.840.1.557300.3.579.2 .1285 1945 Unknown [id number] 2.16.840.1.965099.3.579.2 .1285 1945 Unknown [id number] 2.16.840.1.544177.3.579.2 .1285 1945 Unknown [id number] 2.16.840.1.367468.3.579.2 .1285 1945 Unknown [id number] 2.16.840.1.531113.3.579.2 .1285 1945 Unknown [id number] 2.16.840.1.055359.3.579.2 .1285 1945 Unknown [id number] 2.16.840.1.773361.3.579.2 .1285 1945 Unknown [id number] 2.16.840.1.414759.3.579.2 .1285 1945 Unknown [id number] 2.16.840.1.032879.3.579.2 .1285 1945 Unknown [id number] 2.16.840.1.192720.3.579.2 .1285 1945 Unknown [id number] 2.16.840.1.999274.3.579.2 .1259 1945 Unknown [id number] 2.16.840.1.080682.3.579.2 .1259 1945 Unknown [id number] 2.16.840.1.191978.3.579.2 .1259 1945 Unknown [id number] 2.16.840.1.818020.3.579.2 .1258 1945 Unknown [id number] 2.16.840.1.333658.3.579.2 .1259 1945 Unknown [id number] 2.16.840.1.694216.3.579.2 .1258 1945 Unknown [id number] 2.16.840.1.462049.3.579.2 .1259 1945 Unknown [id number] 2.16.840.1.654260.3.579.2 .1258 1945 Unknown [id number] 2.16.840.1.662219.3.579.2 .125 1945 Unknown [id number] 2.16.840.1.050960.3.579.2 .1258 1945 Unknown [id number] 2.16.840.1.069752.3.579.2 .1259 Medicare [id number] 2.16.840.1.109518.19 Unknown [facility] 2 [id number] Unknown [id number] 2.16.840.1.564338.3.579.2 .531 Unknown [id number] 2.16840.1.734919.3.579.2 .531 Social History Date Type Detail Facility Start: 06-23-2012 End: 02-14-2024 Tobacco smoking status NHIS Former smoker [facility] Start: 12-26-2022 End: 12-08-2011 History of tobacco use Current smoker [place] End: 12-08-2011 History of tobacco use Cigarette Smoker [place] Start: 06-23-2012 End: 02-10-2024 Alcohol intake No Ynes [facility] Start: 06-23-2012 Alcohol Comment stopped 20 years Tarah coleen [place], [place] Start: 1945 Sex Assigned At Not on file M anjali [place] Start: 1945 Sex Assigned At Female F [facility] Start: 10-06-2023 End: 12-04-2023 Tobacco smoking status NDIS Smokes tobacco daily [facility] Start: 10-06-2023 End: 02-10-2024 Cigarettes smoked current (pack per day) - Reported 0.5 [facility] Start: 10-06-2023 End: 02-10-2024 Tobacco use and exposure Smokeless tobacco non-user [facility] Start: 10-18-2023 End: 02-10-2024 Alcohol intake Lifetime non-drinker (finding) [facility] How often to you hav e a drink containing alcohol? Never [facility] How many standard drinks containing alcohol do you have on a typical day? Patient does not drink [facility] History of tobacco use Passive smoker [facility] Start: 08-23-2023 Tobacco Comment ECW [noted 02/25 05/19] : Former smoker ; quit date 01/26/2022 [facility] Start: 03-23-2023 Alcohol Comment caffeine 2-3 c ups/day; pepsi 2 cans/day [facility] Start: 12-27-2023 End: 02-10-2024 Exposure to SARS-CoV-2 (event) Not sure [facility] Start: 01-30-2024 Tobacco smoking status Light t obacco smoker (finding) [facility] Ryann Start: 02-10-2024 Tobacco smoking stat us NHIS Occasional tobacco smoker [facility] Work Phone: Medical Equipment Procedure Code Equipment Code Equipment Origin al Text Equipment Identifier Dates CL CLOSURE DEVIC E EXOSEAL [id number] FDA Start: 04-29-2019 CL STENT KELLY 2.75 X 23 FDA Start: 04-29-2019 Orthopaedic bone screw, non-bioabsorbable, non-sterile ()[id number] FDA Start: 09-02-2020 Femur nail, sterile ()[id number] FDA Start: 09-02-2020 Spiral blade ()[id number] FDA Start: 09-02-2020 CL CLOSURE DEVIC E [...] of progress towards goal: lists sent to [facility] Functional Status Date Assessment Result Facility 02-17-2024 Functional status 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 Baseline [facility] Work Phone: 02-14-2024 Functional status Patient Not at Baseline [facility] Work Phone: 01-30-2024 Functional Status N/A [facility] 08-20-2023 Functional status Patient at Baseline [facility] Work Phone: 07-14-2023 Functional status Patient at Baseline [facility] Work Phone: 12-31-2022 Functional status Patient Not at Baseline [facility] Work Phone: Mental Status Date Assessment Result Facility 02-17-2024 Cognitive function Cognitive Sta tus Patient at Baseline [facility] Work Phone: 02-14-2024 Cognitive function Cognitive Sta tus Patient at Baseline [facility] Work Phone: 08-20-2023 Cognitive function Cognitive Sta tus Patient at Baseline [facility] Work Phone: 07-14-2023 Cognitive function Cognitive Sta tus Patient at Baseline [facility] Work Phone: 12-31-2022 Cognitive function Cognitive Sta tus Patient at Baseline [facility] Work Phone: Clinical Notes 01-18-2022 to 02-19-2024 [...] Dima Colón MD on 02/19/2024 4:52 PM [facility] 02-16-2024 Progress note Note Date/Time February 16, 2024 12:07pm [place] [address] Hospitalist Progress Note Signed Patient: Gera Perdue MR#: [id number] : 1945 Acct:[id number] Age/Sex: 78 / F Adm Date: 4 Loc: Room: [address] [place] [address] Type: ADM IN Attending Dr: Lucho Grullon [...] 02/16/24 09:00 02/16/24 10:23 Pantoprazole 40 Mg Tablet. PO 02/15/25 08:59 40 mg DAILY JERILYN [...] <Electronically signed by Lucho Grullon MD> 02/16/241911 [facility] Work Phone: 1(757) 684-439204-21-2024 Progress note Author Lucho Grullon [facility] February 16, 2024 12:09am Note Date/Time February 15, 2024 3:0 4pm [facility] ENTER [address] [place] [address] Hospitalist Progress Note Signed Patient: Gera Perdue MR#: [id number] : 1945 Acct:[id number] Age/Sex: 78 / F Adm Date: 4 Loc: Room: [address] [place] [address] Type: ADM IN Attending Dr: Lucho Grullon [...] Cannula 3 02/15/24 12:00 02/15/24 12:00 02/15/24 12:02/15/24 12:02/15/24 12:02/15/24 12:00 02/15/24 12:00 Narrative: GEN: Pleasant, Cooperative, Not in [...] Plan Documented By: Lucho Grullon MD 02/15/24 7396 Signed By: <Electronically signed by Lucho Grullon MD> 02/16/24 000 [facility] Work Phone: 1(984) 200-800204-20-2024 History and physical note Author Lucho Grullon [facility] February 15, 2024 12:58am Note Date/Time February 14, 2024 5:5 9pm [facility] ENTER [address] [place] [address] Hospitalist H&P Signed Patient: Gera Perdue MR#: [id number] : 1945 Acct:[id number] Age/Sex: 78 / F Adm Date: 4 Loc: 3T Room: [address] [place] [address] Type: ADM IN Attending Dr: Lucho Grullon [...] with:?the medical team, the patient [facility] Medical History Intertrochanteric fracture of left hip [...] with Cancer Sister Heart disease Cancer Legacy FamHx Problem: Diagnosed with Cancer Family history of [...] % (Auto) 23.7 % (.) 02/14/24 11:39 [place] % (Auto) 12.3 % (.) 02/14/24 11:39 Eos % (Auto) 0.4 % (.) 02/14/24 11:39 Baso % (Auto) 0.9 % (.) 02/14/24 11:39 Nucleat RBC Rel Count 0.1 /100 WBC (0-0.5) 02/14/24 11:39 Neut # (Auto) 8.5 x10E3/uL (1.8-7.7) H 02/14/24 11:39 Lymph # (Auto) 3.2 x10E3/uL (1.00-4.8) 02/14/24 11:39 [place] # (Auto) 1.7 x10E3/uL (0.0-0.8) H 02/14/24 [...] pH 5.5 (5.0-9.0) 02/14/24 11:50 Ur Specific [place] 1.024 (1.001-1.030) 02/14/24 11:50 Urine Protein 30 [...] days): 3 Documented By: Lucho Grullon MD 02/14/241751 Signed By: <Electronically signed by Lucho Grullon MD> 02/15/24 0058 [facility] Work Phone: 1(338) 291-428304-15-2024 History of Present illness Narrative* Jenna Engle [...] stage IIIb 5. Patient was transferred to [facility] from [facility] for nephrology consultation for ARTURO on CKD along with hyperkalemia. This occurred in September 2023. Prior to that she had been living [facility], and has been in and out of [facility] on multiple occasions, being treated for urinary [...] redirect to the Timeline version of the REVFS SmartLink. Wt Readings from Last 3 Encounters: [...] smoker 01/06/2024 Frequent UTI 01/06/2024 Angina pectoris ([facility]) 12/04/2023 Coronary artery disease 12/04/2023 Dyspnea 12/04/2023 Essential hypertension 12/04/2023 Hyperlipidemia, mixed 12/04/2023 Assessment: 1. Shortness of breath Follow Up In Cardiology 2. Coronary artery disease involving [place] coronary artery of [place] heart without angina pectoris 3. History of [...] further questions arise, Sincerely, Jenna Engle MD [facility] Follow up : elisan Janetibe Attestation By signing my name below, Hoa Sheehan LPN, Scribe attest that this documentation has [...] exam, discussion and plan. [facility] Work Phone: 1(216) 897-201804-15-2024 Instructions* Patient Instructions* Hoa Buck LPN - [...] ordered as needed only documented [facility] Work Phone: 1(490) 778-306204-04-2024 Hospital Discharge instructions Patient Education 01/30/2024 14:50:25 [...] Treatment for this condition includes: Antibiotic medicine. Yayy-mmq-ipdieqf medicines to treat discomfort. Drinking enough water [...] Follow these instructions at home: Medicines Take qhav-mvn-cqvzegj and prescription medicines only as told by [...] provider. Document Revised: 05/26/2021 Document Reviewed: 05/26/2021 [employer] Patient Education 2022 [employer]. 01/30/2024 14:50:24 Urinary Incontinence Urinary Incontinence Urinary [...] nerve stimulation). ?For women, using a medical attendant to prevent urine leaks. This is a [...] right after experiencing incontinence. General instructions Take smoi-ayj-stspqcm and prescription medicines only as told by [...] important. Where to find more information National [place] of Diabetes and Digestive and Kidney Diseases: www.niddk.nih.gov [place] [employer]: www.urologyhealth.org Contact a health care [...] provider. Document Revised: 05/19/2021 Document Reviewed: 05/19/2021 [employer] Patient Education 2022 [employer]. 01/30/2024 14:50:21 Overactive Bladder, Adult Overactive Bladder, [...] your health care provider. General instructions Take uuoe-pti-javppyt and prescription medicines only as told by [...] provider. Document Revised: 07/03/2021 Document Reviewed: 07/03/2021 [employer] Patient Education 2022 [employer] Follow Up Care 01/13/2024 09:25:34 With:CHIP Ponce APRN, Renae Delaney, JYOTI, URL Address: When: Unknown Comments:pending cysto/UD [facility] Ryann 04-04-2024 Evaluation + Plan note Diagnostic Tests Pending * Urine Culture 01/30/[address]11-2024 History of Present illness Narrative* Jenna Engle [...] have been reviewed. Reviewed extensive records from [facility].. Past Medical History: 1. Longstanding nicotine dependence with COPD, currently hypoxemic respiratory failure on oxygen. 2. Primary hypertension 3. Obstructive sleep apnea 4. Chronic kidney disease stage IIIb 5. Patient was transferred to [facility] from [facility] for nephrology consultation for ARTURO on CKD along with hyperkalemia. This occurred in September 2023. Prior to that she had been living [facility], and has been in and out of [facility] on multiple occasions, being treated for urinary [...] 2 views; Future Coronary artery disease involving [place] coronary artery of [place] heart without angina pectoris Stage 3b chronic kidney disease (CMS/HCC) Microcytic anemia History of PTCA Essential hypertension Hyperlipidemia, mixed Obstructive sleep apnea syndrome Chronic respiratory failure with hypoxia (CMS/HCC) Frequent UTI BMI 32.0-32.9,adult Cough with expectoration Current smoker 1. Shortness of breath 2. Coronary artery disease involving [place] coronary artery of [place] heart without angina pectoris 3. Stage 3b chronic kidney disease (CMS/HCC) 4. Microcytic anemia 5. History of PTCA 6. Essential hypertension 7. Hyperlipidemia, mixed 8. Obstructive sleep apnea syndrome 9. Chronic respiratory failure with hypoxia (CMS/HCC) 10. Frequent UTI 11. BMI 32.0-32.9,adult 12. Cough with expectoration 13. Current smoker Patient with multiple comorbidities, atherosclerotic ohog[place] vessel coronary artery disease and riskfactors, recent [...] to smoke. She has history of atherosclerotic [place] vessel coronary artery disease with intolerance to [...] further questions arise, Sincerely, Jenna Engle MD [facility] Scribe Attestation By signing my name [...] exam, discussion and plan. documented in this [facility] Work Phone: 1([phone]) 133-148303-11-2024 Instructions* Patient Instructions* Yaquelin Garcia LPN - [...] two weeks then stop documented in this [facility] Work Phone: 1(647) 684-428202-12-2024 History of Present illness Narrative* Lilliam Cheek NP - 12/09/2023 11:00 AM EST Subjective Patient ID: Gera Perdue (: 1945) is a 78 y.o. female who presents for Hospital Follow-up. HPI Pt presents and daughter present for hospital follow up. Pt was admitted to [facility] in early September for ARTURO, UTI, and sepsis. Patient was then discharged to the [facility] in [place]. Pt was released from the [facility] on 11/28/2023. She is supposed to be getting HH however the company they were r eferred to is short staffed so her family has been caring for her. Today patient has complaints of shortness of breath and bilateral leg swelling. Pt denies urinary symptoms. She is currently finishing her Levaquin as she was started on at the [facility]. Pt did also receive weeks of Daptomycin [...] TABLET BY MOUTH EVERY DAY nystatin (Mycostatin) 334847 UNIT/GM powder APPLY TOPICALLY TO THE AFFECTED [...] related osteoporosis (CMS/HCC) Atherosclerotic heart disease of [place] coronary artery without angina pectoris (CMS/HCC) Carotid [...] O:KLEPNE Isolated TBH CULTURE URINE Urine Culture [place] Count TBH CULTURE URINE >100,000 CFU/ml TBH [...] List Items Addressed This Visit Essential hypertension ([facility]) Relevant Orders CBC and differential Comprehensive metabolic panel Hyperlipidemia ([facility]) Stage 3a chronic kidney disease (HCC) ([facility]) Relevant Orders Urinalysis with microscopic Magnesium SOB (shortness of breath) - Primary Hospital discharge follow-up Other Visit Diagnoses Wheezing Urinary tract bacterial infections Relevant Orders Urinalysis with microscopic Urine culture (clean catch) Sepsis with acute renal failure without septic shock, due to unspecified organism, unspecified acute renal failure type ([facility]) Medication management Patient presents today with daughter for hospital/residential follow up. Patient was admitted to [facility] (all hospital records are in Care Everywhere and were reviewed prior to and during appt). With UTI, ARTURO and sepsis. She did receive IV antibiotics through a PICC line which has since been removed. She was discharged to the [facility] for residential for three weeks and was discharged on11/28/2023. Patient is currently finishing oral Levaquin. Patient denies urnary symptoms or fevers today. Patient does have complaints of leg swelling and shortness of breath. Assessment does consist of wheezing and rhonchi. Daughter did bring a large bag with multiple medications that needed reviewed and sorted out. This MECHATRONICS TECHNOLOGIST did review each medication and compared it to the discharge summary from the [facility]. Each medication was discussed and placed in proper labeled bags to assist in the proper set up at home. Patient does have an order for HH however the company does not have enough staff. I am going to send an order to [facility] as this patient needs and requires a HH nurse, aide, social group worker and PT. CCM will also be consulted. Patient does discuss concerns of a prolapsed bladder being apossible cause of the UTI's which this does need assessed in a timely manner. Referral sent to [facility].Advised daughter to call office within 5-7 days if she has not heard anything to address the above r eferrals. Patient is currently supposed to be taking Prednisone 20 mg a day which she has not been doing. This was given at the [facility]. Due to the wheezing and shortness of breath I advised they to 40 mg a day for 3 days and finish the rest of the 20 mg a day until finished. Patient and daughter instructed to call office with any questions or to seek ER if symptoms worsen. 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 Patient will return to the [...] breathing machine I will address this with [facility]. Health Maintenance Topic Date Due Diabetes: Retinopathy [...] follow up with labs. documented in this encounterGolden Valley Memorial [id number] Miscellaneous Notes* Telephone Encounter - Yvonne Kelly RN - 11/12/2023 2:42 PM EST Called Alethea-Patient's daughter back after r/s hospital followup with Dr Galicia for 11-22-2023. Our office does not participate with her Mom's insurance-[employer]. Appt cancelled. Alethea to call her Mom's [employer] Customer Service to see what Ellen GUZMAN is on her plan. Alethea to call office back so we can send a referral. documented in this encounterOhio[facility]24 Telephone encounter Note* Telephone Encounter - Yvonne Kelly RN - 11/12/2023 2:42 PM EST Called Alethea-Patient's daughter back after r/s hospital followup with Dr Galicia for 11-22-2023. Our office does not participate with her Mom's insurance-[employer]. Appt cancelled. Alethea to call her Mom's [employer] Customer Service to see what Ortho is on her plan. Alethea to call office back so we can send a referral. [facility] [employer] [phone] Miscellaneous Notes* Telephone Encounter - Nirmala Shirley - 11/12/2023 10:18 AM EST ALETHEA IS CALLING SINCE PT TESTED POSITIVE FOR COVID. PLEASE CALL AND ADVISE ABOUT THE HOSPITAL DISCHARGE FOLLOW UP SHE CAN BE REACHED AT [phone] * Telephone Encounter - Yvonne Kelly RN - 11/12/2023 10:18 AM EST Patient is in isolation until 11-17-2023. Appt r/s with Dr Galicia for 10:30a documented in this encounterOhioHealth [facility] Hospital01-16-2024 Telephone encounter Note* Telephone Encounter - Nirmala Shirley - 11/12/2023 10:18 AM EST ALETHEA IS CALLING SINCE PT TESTED POSITIVE FOR COVID. PLEASE CALL AND ADVISE ABOUT THE HOSPITAL DISCHARGE FOLLOW UP SHE CAN BE REACHED AT [phone] [facility]01-16-[facility] Telephone encounter Note* Telephone Encounter - Yvonne Kelly RN - 11/12/2023 10:18 AM EST Patient is in isolation until 11-17-2023. Appt r/s with Dr Galicia for 10:30a [facility] E2E [id number] Miscellaneous Notes* Telephone Encounter - Avtar Person Jordan - 10/30/2023 12:37 PM EST New patient/Hospital Follow Up DX: Sleep Apnea Scheduled 01/10/24 w/ Dr. Gallagher [facility] Paperwork sent: 10/30/23. Please send paperwork to: [employer] @ [place] [address] Ins verified (OON notification); NO WORKMAN'S COMP; NO ACCIDENT documented in this encounterOhioHealth [facility] Hospital01-03-2024 Telephone encounter Note* Telephone Encounter - Amrit Person Jordan - 10/30/2023 12:37 PM EST New patient/Hospital Follow Up DX: Sleep Apnea Scheduled 01/10/24 w/ Dr. Gallagher [facility] Paperwork sent: 10/30/23. Please send paperwork to: [employer] @ [place] [address] Ins verified (OON notification); NO WORKMAN'S COMP; NO ACCIDENT [facility] [employer] [id number] Discharge summary Author Jesus Alberto Aquino [facility] August 20, 2023 1:32pm Note Date/Time August 20, 2023 1 :32pm [facility] EN[facility] [address] [place] [address] Discharge Summary Signed Patient: Gera Perdue MR#: [id number] : 1945 Acct:[id number] Age/Sex: 77 / F Adm Date: 3 Loc: Room: [address] [place] [address]: Jesus Alberto Aquino MD Copies to: MD Gustavo Keen,DO~ Providers Date of Discharge: 08/20/23 Discharging Provider: Jesus Alberto Aquino Primary Care Provider: Gustavo Salas Consults: 08/17/23 19:45 Consult to Occupational Therapy [...] 08:00 Discharge Plan Discharge Plan Patient Disposition: Group Home Facility Activity: No Activity Restriction Diet: Regular [...] APPLY TO AFFECTED AREA(S) TOPICALLY TWICE DAILY Trelenarciso Ellipta 100-62.5-25 mcg Blister With Device 1 [...] by Jesus Alberto Aquino MD> 08/20/23 1332 [facility] Work Phone: 1([phone]) 600-269810-23-2023 Progress note Author Jesus Alberto Aquino [facility] August 19, 2023 2:43pm Note Date/Time August 19, 2023 2 :43pm [facility] EN[facility] [address] [place] [address] Hospitalist Progress Note Signed Patient: Gera Perdue MR#: [id number] : 1945 Acct:[id number] Age/Sex: 77 / F Adm Date: 3 Loc: Room: [address] [place] [address] Type: ADM IN Attending Dr: Jesus Alberto [...] signed by Jesus Alberto Aquino MD> 08/19/231442 [facility] Work Phone: 1(105) 536-956710-22-2023 Progress note Author Jesus Alberto Aquino [facility] August 18, 2023 1:49pm Note Date/Time August 18, 2023 1 :49pm [facility] EN[facility] [address] [place] [address] Hospitalist Progress Note Signed Patient: Gera Perdue MR#: [id number] : 1945 Acct:[id number] Age/Sex: 77 / F Adm Date: 3 Loc: Room: [address] [place] [address] Type: ADM IN Attending Dr: Jesus Alberto [...] 08/18/231347 Signed By: <Electronically signed by Jesus Albetro Aquino MD> 08/18/231348 [facility] Work Phone: 1(355) 609-402810-21-2023 History and physical note Author Jesus Alberto Aquino [facility] August 17, 2023 7:50pm Note Date/Time August 17, 2023 7 :50pm [facility] EN[facility] [address] [place] [address] Hospitalist H&P Signed Patient: Gera Perdue MR#: [id number] : 1945 Acct:[id number] Age/Sex: 77 / F Adm Date: 3 Loc: Room: [address] [place] [address] Type: ADM IN Attending Dr: Jesus Alberto [...] Pulm hypertension GERD Hypertension Dyslipidemia [facility] Medical History (Updated 08/17/23 @ 19:01 by [...] % (Auto) 7.8 % (.) 08/17/23 16:05 [place] % (Auto) 5.5 % (.) 08/17/23 16:05 Eos % (Auto) 0.0 % (.) 08/17/23 16:05 Baso % (Auto) 0.2 % (.) 08/17/23 16:05 Nucleat RBC Rel Count 0.1 /100 WBC (0-0.5) 08/17/23 16:05 Neut # (Auto) 25.4 x10E3/uL (1.8-7.7) H 08/17/23 16:05 Lymph # (Auto) 2.3 x10E3/uL (1.00-4.8) 08/17/23 16:05 [place] # (Auto) 1.6 x10E3/uL (0.0-0.8) H 08/17/23 [...] signed by Jesus Alberto Aquino MD> 08/17/[address] [place] [address] Work Phone: 1([phone]) 941-279810-21-2023 History and physical note Author Jesus Alberto Aquino [facility] August 17, 2023 7:50pm Note Date/Time August 17, 2023 7 :50pm [facility] EN[facility] [address] [place] [address] Hospitalist H&P Signed Patient: Gera Perdue MR#: [id number] : 1945 Acct:[id number] Age/Sex: 77 / F Adm Date: 3 Loc: Room: [address] [place] [address] Type: ADM IN Attending Dr: Jesus Alberto [...] Pulm hypertension GERD Hypertension Dyslipidemia [facility] Medical History (Updated 08/17/23 @ 19:01 by [...] % (Auto) 7.8 % (.) 08/17/23 16:05 [place] % (Auto) 5.5 % (.) 08/17/23 16:05 Eos % (Auto) 0.0 % (.) 08/17/23 16:05 Baso % (Auto) 0.2 % (.) 08/17/23 16:05 Nucleat RBC Rel Count 0.1 /100 WBC (0-0.5) 08/17/23 16:05 Neut # (Auto) 25.4 x10E3/uL (1.8-7.7) H 08/17/23 16:05 Lymph # (Auto) 2.3 x10E3/uL (1.00-4.8) 08/17/23 16:05 [place] # (Auto) 1.6 x10E3/uL (0.0-0.8) H 08/17/23 [...] by Jesus Alberto Aquino MD> 08/17/23 1950 [facility] Work Phone: 1(308) 862-220409-17-2023 Discharge summary Author Jolanta Mckenzie [facility] July 14, 2023 11:16am Note Date/Time July 14, 2023 11:16am [facility] EN[facility] [address] [place] [address] Discharge Summary Signed Patient: Gera Perdue MR#: [id number] : 1945 Acct:[id number] Age/Sex: 77 / F Adm Date: 3 Loc: Room: [address] [place] [address]: Jolanta Mckenzie MD Copies to: Gustavo Salas,DO Jolanta Mckenzie MD~ Providers Date of Discharge: 07/14/23 Discharging [...] breathing. Physical therapy wasconsulted with recommendation for residential facility which patient is refusing understanding the [...] % (Auto) 69.9, Lymph % (Auto) 22.1, [place] % (Auto) 7.3, Eos % (Auto) 0.4, Baso % (Auto) 0.3, Nucleat RBC Rel Count 0.1, Neut # (Auto) 13.5 H, Lymph # (Auto) 4.3, [place] # (Auto) 1.4 H, Eos # (Auto) [...] <Electronically signed by Jolanta Mckenzie MD> 07/14/[address] [place] [address] Ctr Work Phone: 1(457) 248-803309-16-2023 Progress note Author Jolanta Mckenzie [facility] July 13, 2023 1:59pm Note Date/Time July 13, 2023 10:40am [facility] EN[facility] [address] [place] [address] Hospitalist Progress Note Signed with Ling Patient: Gera Perdue MR#: [id number] : 1945 Acct:[id number] Age/Sex: 77 / F Adm Date: 3 Loc: Room: [address] [place] [address] Type: ADM IN Attending Dr: Jolanta Mckenzie [...] but patient also on steroid. Discussed regarding residential facility she has not decided yet. Give 1 dose of IV Lasix and resume oral Lasix from tomorrow. Addendum Documented By: Jolanta Mckenzie MD 07/13/23 9308 Addendum Signed By: <Electronically signed by Jolanta Mckenzie MD> 07/13/23 6995 Date of Service: 07/13/2023 Subjective Subjective Narrative: [...] 07/11/23 09:00 07/13/23 09:37 Pantoprazole 40 Mg Tablet. PO 07/10/24 08:59 40 mg DAILY JERILYN [...] signed by Jolanta Mckenzie MD> 07/13/23 1356 [facility] Work Phone: 1([phone] 462-845709-15-2023 Progress note Author Jolanta Mckenzie [facility] July 12, 2023 3:00pm Note Date/Time July 12, 2023 2:16pm [facility] [address] [place] [address] Hospitalist Progress Note Signed with Addenda Patient: Gera Perdue MR#: [id number] : 1945 Acct:[id number] Age/Sex: 77 / F Adm Date: 3 Loc: Room: [address] [place] [address] Type: ADM IN Attending Dr: Jolanta Mckenzie [...] and switch to oral prednisone. PT recommended residential facility which patient is refusing with plan [...] 1,000 Ml IV 07/09/24 13:59 75 mls/hr .[id number] JERILYN Administration Ceftriaxone Sodium 1 gm in [...] signed by Jolanta Mckenzie MD> 07/12/23 1457 [facility] Work Phone: [phone]) 913-384009-14-2023 Progress note Author Jolanta Mckenzie [facility] July 11, 2023 12:47pm Note Date/Time July 11, 2023 10:10am [facility] [address] [place] [address] Hospitalist Progress Note Signed with Ling Patient: Gera Perdue MR#: [id number] : 1945 Acct:[id number] Age/Sex: 77 / F Adm Date: 3 Loc: 3T Room: [address] [place] [address] Type: ADM IN Attending Dr: Jolanta Mckenzie [...] 1,000 Ml IV 07/09/24 13:59 75 mls/hr .[id number] JERILYN Administration Ceftriaxone Sodium 1 gm in [...] <Electronically signed by Jolanta Mckenzie MD> 07/11/23 7215 [facility] Work Phone: 1(825) 724-735109-13-2023 History and physical note Author Jolanta Mckenzie [facility] July 10, 2023 1:50pm Note Date/Time July 10, 2023 1:44pm [facility] [address] [place] [address] Hospitalist H&P Signed Patient: Gera Perdue MR#: [id number] : 1945 Acct:[id number] Age/Sex: 77 / F Adm Date: 3 Loc: Room: [address] [place] [address] Type: ADM IN Attending Dr: Jolanta Mckenzie [...] noted below or in HPI [facility] Medical History Arthritis COPD (chronic obstructive pulmonary [...] Q6H PRN bronchospasm 7 days #8 grams 08/04/22 [Rx Confirmed 07/10/23] ammonium lactate 12 % [...] % (Auto) 31.5 % (.) 07/10/23 08:44 [place] % (Auto) 6.5 % (.) 07/10/23 08:44 Eos % (Auto) 0.4 % (.) 07/10/23 08:44 Baso % (Auto) 0.2 % (.) 07/10/23 08:44 Nucleat RBC Rel Count 0.1 /100 WBC (0-0.5) 07/10/23 08:44 Neut # (Auto) 13.1 x10E3/uL (1.8-7.7) H 07/10/23 08:44 Lymph # (Auto) 6.7 x10E3/uL (1.00-4.8) H 07/10/23 08:44 [place] # (Auto) 1.4 x10E3/uL (0.0-0.8) H 07/10/23 [...] pH 8.5 (5.0-9.0) 07/10/23 08:44 Ur Specific [place] 1.022 (1.001-1.030) 07/10/23 08:44 Urine Protein 30 [...] signed by Jolanta Mckenzie MD> 07/10/23 1350 [facility] Work Phone: [phone]) [phone] Discharge summary Author Jesus Alberto Aquino [facility] December 31, 2022 3:43pm Note Date/Time December 31, 2022 11:5 7am [facility] [address] [place] [address] Discharge Summary Signed Patient: Gera Perdue MR#: [id number] : 1945 Acct:[id number] Age/Sex: 77 / F Adm Date: 3 Loc: Room: [address] [place] [address]: Jesus Alberto Aquino MD Copies [...] complications occurred, and patient was discharged to residential facility in stable condition on December 31. [...] % (Auto) N/A, Lymph % (Auto) N/A, [place] % (Auto) N/A, Eos % (Auto) N/A, Baso % (Auto) N/A, Nucleat RBC Rel Count N/A, Neut # (Auto) N/A, Lymph # (Auto) N/A, [place] # (Auto) N/A, Eos # (Auto) N/A, [...] 09:23 Discharge Plan Discharge Plan Patient Disposition: Group Home Facility Activity: No Activity Restriction Diet: Regular [...] signed by Jesus Alberto Aquino MD> 12/31/22 1546 [facility] Work Phone: 1([phone]) 486-839203-05-2023 Progress note Author Carla Hagan [facility] December 30, 2022 9:53am Note Date/Time December 30, 2022 9:53 am [facility] [address] [place] [address] Hospitalist Progress Note Signed Patient: Gera Perdue MR#: [id number] : 1945 Acct:[id number] Age/Sex: 77 / F Adm Date: 3 Loc: 4 Room: [id number] Type: ADM IN Attending Dr: aCrla Hagan MD Copies to: ~ Date of [...] place, time and person. Morbidly obese HEENT: [place] conjunctiva and NL buccal mucosa Neck: Supple, [...] 12/27/22 09:00 12/30/22 08:05 Pantoprazole 40 Mg Tablet.Dr LEES 12/27/23 08:59 40 mg DAILY JERILYN Administration [...] anemia Plan is to discharge patient to residential unit for short period of time for [...] signed by Carla Hagan MD> 12/30/22 0953 [facility] Work Phone: [phone]) 609-197803-04-2023 Progress note Author Carla Hagan [facility] December 29, 2022 10:00am Note Date/Time December 29, 2022 10:0 0am [facility] [address] [place] [address] Hospitalist Progress Note Signed Patient: Gera Perdue MR#: [id number] : 1945 Acct:[id number] Age/Sex: 77 / F Adm Date: 3 Loc: 4N Room: [id number] Type: ADM IN Attending Dr: Carla Hagan [...] place, time and person. Morbidly obese HEENT: [place] conjunctiva and NL buccal mucosa Neck: Supple, [...] Jil PRN Reason Stop Dose Admin Acetaminophen 650 [...] signed by Carla Hagan MD> 12/29/22 1000 [facility] Work Phone: [phone]) 115-215503-03-2023 Progress note Author Carla Hagan [facility] December 28, 2022 11:14am Note Date/Time December 28, 2022 9:27 am [facility] [address] [place], [place] [address] Hospitalist Progress Note Signed Patient: Gera Perdue MR#: [id number] : 1945 Acct:[id number] Age/Sex: 77 / F Adm Date: 3 Loc: 4N Room: [id number] Type: ADM IN Attending Dr: Carla Hagan [...] 09:00 12/27/22 09:04 Pantoprazole 40 Mg Tablet.Dr LEES 12/27/23 08:59 40 mg DAILY JERILYN Administration [...] any cardiac arrhythmia.? Patient will likely require residential facility on discharge. Patient is medically cleared for discharge pending placement approval. The patient would likely need to have additional work-up, investigation and therapeutic intervention but will be determined based on the clinical progression and follow-up test result Documented By: Carla Hagan MD 12/28/22 0918 Signed By: <Electronically signed by Carla Hagan MD> 12/28/22 1114 <Electronically signed by DO SEAN Armas> 12/28/22 1044 [facility] Work Phone: 1(556) 963-412603-02-2023 Progress note Author Carla Hagan [facility] December 27, 2022 12:40pm Note Date/Time December 27, 2022 9:25 am [facility] [address] [place] [address] Hospitalist Progress Note Signed Patient: Gera Perdue MR#: [id number] : 1945 Acct:[id number] Age/Sex: 77 / F Adm Date: 3 Loc: Room: [address] [place] [address] Type: ADM IN Attending Dr: Carla Hagan [...] Mg/2 Ml Ampul.Neb INHALATION 12/27/23 05:59 BID@0600,1800 JERILYN Bupropion HCl 300 mg 12/27/22 09:00 Bupropion 300 Mg Tab.Er.24h PO 12/27/23 08:59 QAM [facility] Calcium Carbonate 600 mg 12/27/22 09:00 Calcium Carbonate 500 Mg Tablet PO 12/27/23 08:59 DAILY [facility] Clopidogrel Bisulfate 75 mg 12/27/22 09:00 Clopidogrel Bisulfate 75 Mg Tablet PO 12/27/23 08:59 DAILY JERILYN Heparin Sodium (Porcine) 5,000 unit 12/27/22 06:00 12/27/22 06:14 Heparin 5,000 Unit/Ml Vial SUBCUT 12/27/23 05:59 5,000 unit Q8HR JERILYN Administration Hydromorphone HCl 0.5 mg 12/27/22 03:58 Hydromorphone 0.5 Mg/0.5 Ml Syringe IV-PUSH Q4H PRN Pain Scale 8 - 10 Lisinopril 5 mg 12/27/22 09:00 Lisinopril 5 Mg Tablet PO 12/27/23 08:59 DAILY [facility] Metoprolol Succinate 50 mg 12/27/22 09:00 Metoprolol Succinate 50 Mg Tab.Er.24h PO 12/27/23 08:59 DAILY [facility] Nicotine 1 each 12/27/22 00:30 12/27/22 00:48 Nicotine Patch 14 Mg/24hr 1 Each Patch.Td24 TRANSDERML 01/08/23 09:01 1 each DAILY [facility] Administration Nystatin 1 applic 12/27/22 00:30 12/27/22 00:48 Nystatin 100,000 Unit/Gram Powder 15 Gm Bottle TOPICAL 12/27/23 00:29 1 applic BID [facility] Administration Ondansetron HCl 4 mg 12/26/22 23:41 Ondansetron 4 Mg/2 Ml Vial IV-PUSH 12/26/23 23:40 Q8H PRN Nausea And Vomiting Pantoprazole Sodium 40 mg 12/27/22 09:00 Pantoprazole 40 Mg Tablet. PO 12/27/23 08:59 DAILY [facility] Paroxetine HCl 40 mg 12/27/22 09:00 Paroxetine 20 Mg Tablet PO 12/27/23 08:59 QAM [facility] Pregabalin 75 mg 12/27/22 09:00 Pregabalin 75 Mg Capsule PO 06/25/23 08:59 BID [facility] Sodium Chloride 0 ml 12/26/22 19:02 12/26/22 20:58 Sodium Chloride 0.9 % 10 Ml Syringe IV-PUSH 12/26/23 19:01 10 ml PRN PRN Administration Flush Sodium Chloride 0 ml 12/27/22 06:00 12/27/22 06:14 Sodium Chloride 0.9 % 10 Ml Syringe IV-PUSH 12/27/23 05:59 10 ml QSHIFT [facility] Administration Tramadol HCl 50 mg 12/26/22 23:41 12/27/22 06:14 Tramadol 50 Mg Tablet PO 06/24/23 23:40 50 mg Q6H PRN Administration Pain Scale 4 - 7 Triamcinolone Acetonide 1 applic 12/27/22 09:00 Triamcinolone 0.1% Cream 15 Gm Tube TOPICAL 12/27/23 08:59 BID [facility] Vitamin D 50 mcg 12/27/22 09:00 Cholecalciferol 25 Mcg (1,000 Units) Tablet PO 12/27/23 08:59 DAILY JERILYN A&P - Hospitalist Assessment/Plan (1) Fall: (2) [...] any cardiac arrhythmia.? Patient will likely require residential facility on discharge. Documented By: Carla Hagan MD 12/27/22 0857 Signed By: <Electronically signed by Carla Hagan MD> 12/27/22 1240 <Electronically signed by DO SEAN Armas> 12/27/22 1135 [facility] Work Phone: 1([phone] History and physical note Author Jolanta Mckenzie [facility] December 27, 2022 12:32am Note Date/Time December 26, 2022 11:0 5pm [facility] [address] [place] [address] Hospitalist H&P Signed with Addenda Patient: Gera Perdue MR#: [id number] : 1945 Acct:[id number] Age/Sex: 77 / F Adm Date: 3 Loc: 4N Room: [address] [place] [address] Type: ADM IN Attending Dr: Jolanta Mckenzie [...] pulmonary hypertension as per echo done in 2020. Patient brought to the ER with complaint [...] any cardiac arrhythmia. Patient will likely require residential facility on discharge. Addendum Documented By: Jolanta [...] % (Auto) 24.8 % (.) 12/26/22 19:36 [place] % (Auto) 10.1 % (.) 12/26/22 19:36 Eos % (Auto) 1.1 % (.) 12/26/22 19:36 Baso % (Auto) 0.5 % (.) 12/26/22 19:36 Nucleat RBC Rel Count 0.1 /100 WBC (0-0.5) 12/26/22 19:36 Neut # (Auto) 7.6 x10E3/uL (1.8-7.7) 12/26/22 19:36 Lymph # (Auto) 3.0 x10E3/uL (1.00-4.8) 12/26/22 19:36 [place] # (Auto) 1.2 x10E3/uL (0.0-0.8) H 12/26/22 [...] signed by MD SEAN Mann> 12/27/22 0022 [facility] Work Phone: 1([phone]) 321-879407-01-2022 NoteHISTORY: Bone density screening. COMPARISON: 08/03/2020 PROCEDURE: Imaging of the lumbar spine and right hip, and right forearm was obtained for bone density evaluation. FINDINGS: REGION BMD (g/cm??) YOUNG ADULT T-SCORE AGE-MATCHED Z-SCORE Right forearm (1/3) 0.554 -2.3 0.4 RIGHT NECK 0.592 -2.3 [...] and signed by Edgar Hooper on 05/01/2022 [facility]* Encounter Date Diagnosis Assessment Notes Treatment Notes Treatment Clinical Notes Mar, Major depressive disorder, recurrent severe without psychotic features (ICD-10 - F33.2) [facility] Other 03-24-2022 Evaluation note* Encounter Date Diagnosis Assessment Notes Treatment Notes Treatment Clinical Notes Dec, GERD (gastroesophageal reflux disease) (ICD-10 - K21.9) [facility] videoNEXT Other Discharge summary Author Jesus Alberto Aquino [facility] December 31, 2022 3:43pm Note Date/Time December 31, 2022 11:5 7am [facility] [address] [place], [place] [address] Discharge Summary Signed Patient: Gera Perdue MR#: [id number] : 1945 Acct:[id number] Age/Sex: 77 / F Adm Date: 3 Loc: 4N Room: [address] [place] [address]: Jesus Alberto Aquino MD Copies [...] complications occurred, and patient was discharged to residential facility in stable condition on December 31. [...] % (Auto) N/A, Lymph % (Auto) N/A, [place] % (Auto) N/A, Eos % (Auto) N/A, Baso % (Auto) N/A, Nucleat RBC Rel Count N/A, Neut # (Auto) N/A, Lymph # (Auto) N/A, [place] # (Auto) N/A, Eos # (Auto) N/A, [...] 09:23 Discharge Plan Discharge Plan Patient Disposition: Group Home Facility Activity: No Activity Restriction Diet: Regular [...] signed by Jesus Alberto Aquino MD> 12/31/22 1544 [facility] Work Phone: Discharge summary Author Jolanta Mckenzie [facility] July 14, 2023 11:16am Note Date/Time July 14, 2023 11:16am [facility] [address] [place] [address] Discharge Summary Signed Patient: Gera Perdue MR#: [id number] : 1945 Acct:[id number] Age/Sex: 77 / F Adm Date: 3 Loc: Room: [address] [place] [address]: Jolanta Mckenzie MD Copies to: [...] breathing. Physical therapy wasconsulted with recommendation for residential facility which patient is refusing understanding the [...] % (Auto) 69.9, Lymph % (Auto) 22.1, [place] % (Auto) 7.3, Eos % (Auto) 0.4, Baso % (Auto) 0.3, Nucleat RBC Rel Count 0.1, Neut # (Auto) 13.5 H, Lymph # (Auto) 4.3, [place] # (Auto) 1.4 H, Eos # (Auto) [...] <Electronically signed by Jolanta Mckenzie MD> 07/14/[address] [place] [address] Ctr Work Phone: Discharge summary Author Michoacano Mckenzie [facility] February 17, 2024 4:57pm Note Date/Time February 17, 2024 4:4 6pm [facility] [address] [place] [address] Discharge Summary Signed Patient: Gera Perdue MR#: [id number] : 1945 Acct:[id number] Age/Sex: 78 / F Adm Date: 4 Loc: Room: [address] [place] [address]: Michoacano Mckenzie MD Copies to: MD Gustavo Forde,~ Providers Date of Discharge: 02/17/24 Discharging Provider: [...] by physical and Occupational Therapy, who recommended residential placement. Patient was very adamant that she [...] L Documented By: Michoacano Mckenzie MD 4 1645 Signed By: <Electronically signed by Michoacano Mckenzie MD> 02/17/24 1657 [facility] Work Phone: evaluation noteNo InformationNort Velti Other Evaluation noteNo assessment information available [facility] Work Phone: evaluation note* Diagnosis Onset Date Resolution Status Accidental fall acute Head injury acute Inability to perform activities of daily living acute [facility] Work Phone: evaluation note* Diagnosis Onset Date Resolution Status Accidental fall acute Acute hip pain acute Fall acute Head injury acute Inability to perform activities of daily living acute Physical deconditioning acut e [facility] Work Phone: evaluation note* Diagnosis Onset Date Resolution Status Acute exacerbation of chroni c obstructive pulmonary disease acute CAD (coronary artery disease) acute Closed head injury acute Contusion of hip acute Fall acute Umbilical hernia acute UTI (urinary tract infection) acute [facility] Work Phone: evaluation note* Diagnosis Onset Date Resolution Status Acute exacerbation of chroni c obstructive pulmonary disease acute CAD (coronary artery disease) acute Closed head injury acute Contusion of hip acute Fall acute Umbilical hernia acute UTI (urinary tract infection) acute Acute UTI acute ARTURO (acute kidney injury) ac jose rafael Weakness acute [facility] Work Phone: evaluation note* Diagnosis SOB (shortness of breath)- Primary Shortness of breath Wheezing Urinary tract bacterial infections Urinary tract infection, site not specified Essential hypertension (CMS/HCC) Unspecified essential hypertension Mixed hyperlipidemia (CMS/HCC) Mixed hyperlipidemia Stage 3a chronic kidney disease (HCC) ([facility]/HCC) Sepsis with acute renal failure without septic shock, due to unspecified organism, unspecified acute renal failure type (CMS/HCC) Hospital discharge follow-up Other follow-up examination Medication management Female bladder prolapse Pulmonary emphysema, unspecified emphysema type (CMS/HCC) [facility] Diagnosis Shortness of breath Coronary artery disease involving [place] coronary artery of [place] heart without angina pectoris Stage 3b chronic [...] Cough Current smoker documented in this encounter [facility] Work Phone: Evaluation note* Diagnosis Shortness of breath documented in this encounter [facility] Work Phone: Evaluation note* Diagnosis Shortness of breath Coronary artery disease involving [place] coronary artery of [place] heart without angina pectoris History of PTCA Postsurgical percutaneous transluminal coronary angioplasty status Essential hypertension Unspecified essential hypertension Hyperlipidemia, mixed Mixed hyperlipidemia Obstructive sleep apnea syndrome Obstructive sleep apnea (adult) (pediatric) BMI 35.0-35.9,adult Current smoker Chronic hypoxemic respiratory failure (Multi) Chronic respiratory failure Encounter to discuss test results Other specified counseling documented in this encounter [facility] Work Phone: Evaluation note* Diagnosis Onset Date Resolution Status Nausea and vomiting acute Pneumonia acute UTI (urinary tract infection) acute [facility] Work Phone: Evaluation note* Diagnosis Onset Date Resolution Status CAD (coronary artery disease) acute GERD (gastroesophageal reflux disease) acute Nausea and vomiting acute Pneumonia acute UTI (urinary tract infection) acute COPD (chronic obstructive pulmonary disease) chronic [facility] Work Phone: History and physical note Author Jolanta Mckenzie [facility] December 27, 2022 12:32am Note Date/Time December 26, 2022 11:0 5pm [facility] EN[facility] [address] [place] [address] Hospitalist H&P Signed with Addenda Patient: Gera Perdue MR#: [id number] : 1945 Acct:[id number] Age/Sex: 77 / F Adm Date: 3 Loc: 4N Room: [id number] Type: ADM IN Attending Dr: Jolanta Mckenzie [...] any cardiac arrhythmia. Patient will likely require residential facility on discharge. Addendum Documented By: Jolanta [...] to adequately care for self. Home health givesCarolyn a bath on Saturday and . Otherwise, [...] % (Auto) 24.8 % (.) 12/26/22 19:36 [place] % (Auto) 10.1 % (.) 12/26/22 19:36 Eos % (Auto) 1.1 % (.) 12/26/22 19:36 Baso % (Auto) 0.5 % (.) 12/26/22 19:36 Nucleat RBC Rel Count 0.1 /100 WBC (0-0.5) 12/26/22 19:36 Neut # (Auto) 7.6 x10E3/uL (1.8-7.7) 12/26/22 19:36 Lymph # (Auto) 3.0 x10E3/uL (1.00-4.8) 12/26/22 19:36 [place] # (Auto) 1.2 x10E3/uL (0.0-0.8) H 12/26/22 [...] to SNF Documented By: Jolanta Mckenzie MD 12/26/222 Signed By: <Electronically signed by Jolanta Mckenzie MD> 12/27/22 0026 <Electronically signed by MD SEAN Mann> 12/27/22 0022 [facility] Work Phone: History and physical note Author Jolanta Mckenzie [facility] July 10, 2023 1:50pm Note Date/Time July 10, 2023 1:44pm [facility] EN[facility] [address] [place] [address] Hospitalist H&P Signed Patient: Gera Perdue MR#: [id number] : 1945 Acct:[id number] Age/Sex: 77 / F Adm Date: 3 Loc: Room: [address] [place] [address] Type: ADM IN Attending Dr: Jolanta Mckenzie [...] noted below or in HPI [facility] Medical History Arthritis COPD (chronic obstructive pulmonary [...] % (Auto) 31.5 % (.) 07/10/23 08:44 [place] % (Auto) 6.5 % (.) 07/10/23 08:44 Eos % (Auto) 0.4 % (.) 07/10/23 08:44 Baso % (Auto) 0.2 % (.) 07/10/23 08:44 Nucleat RBC Rel Count 0.1 /100 WBC (0-0.5) 07/10/23 08:44 Neut # (Auto) 13.1 x10E3/uL (1.8-7.7) H 07/10/23 08:44 Lymph # (Auto) 6.7 x10E3/uL (1.00-4.8) H 07/10/23 08:44 [place] # (Auto) 1.4 x10E3/uL (0.0-0.8) H 07/10/23 [...] pH 8.5 (5.0-9.0) 07/10/23 08:44 Ur Specific [place] 1.022 (1.001-1.030) 07/10/23 08:44 Urine Protein 30 [...] signed by Jolanta Mckenzie MD> 07/10/23 1350 [facility] Work Phone: History general Narrative [...] 2012 Surgical History Low back surgery X4, 1993 Surgical History hernia repair Surgical History colostomy for severe diverticulosis, >10cm removed. no anastamosis Dr Fonseca, [facility] Surgical History EGD Surgical History colostomy 01/07 per [facility] Surgical History Bowel resection with reversal o f colostomy 02-25-2015 Surgical History SKIN BIOPSY X 2 ON FACE 8-9-201 6 Surgical History left IM nailing 09-02-20 Surgical History left hip FX 10/2020 Hospitalization History 6 child births Hospitalization History See Above Hospitalization History Kidney stones Hospitalization History [facility] bowel obstruction 10/2019 Hospitalization History Fell/ UTI Hospitalization History [facility] [place] left hip fr acture 10/2020 [facility] Other Hospital course Narrative No data available for this section [facility] Discharge instructions Additional Instructions Use the albuterol inhaler as prescribed here COPD exacerbation take prednisone as prescribed. Take Tylenol as needed for hip pain. Follow-up with your PCP for reevaluation in 5 to 7 days.[facility] Work Phone: Hospital Discharge instructions Additional Instructions [...] precautions Care [facility] be [facility] Work Phone: Hospital Discharge instructionsAmbulatory Orders* Initiate [...] wraps to BLE. Change daily and prn -[facility] Work Phone: Hospital Discharge instructions Additional [...] precautions Care [facility] be [facility] Work Phone: Hospital Discharge instructions No data available for this section [facility]ructionsNot on filedocumented in this encounter [facility] SystemInstructionsNot on filedocumented in this encounter [facility] SystemInstructionsNot on filedocumented in this encounter [facility] SystemInstructionsNot on filedocumented in this encounter [facility] SystemProgress note Author Carla Hagan [facility] December 27, 2022 12:40pm Note Date/Time December 27, 2022 9:25 am [facility] EN[facility] [address] [place] [address] Hospitalist Progress Note Signed Patient: Gera Perdue MR#: [id number] : 1945 Acct:[id number] Age/Sex: 77 / F Adm Date: 3 Loc: Room: [address] [place] [address] Type: ADM IN Attending Dr: Carla Hagan [...] Mg/2 Ml Ampul.Neb INHALATION 12/27/23 05:59 BID@0600,1800 JERILYN Bupropion HCl 300 mg 12/27/22 09:00 Bupropion 300 Mg Tab.Er.24h PO 12/27/23 08:59 QAM JERILYN Calcium Carbonate 600 mg 12/27/22 09:00 Calcium Carbonate 500 Mg Tablet PO 12/27/23 08:59 DAILY JERILYN Clopidogrel Bisulfate 75 mg 12/27/22 09:00 Clopidogrel Bisulfate 75 Mg Tablet PO 12/27/23 08:59 DAILY JERILYN Heparin Sodium (Porcine) 5,000 unit 12/27/22 06:00 12/27/22 06:14 Heparin 5,000 Unit/Ml Vial SUBCUT 12/27/23 05:59 5,000 unit Q8HR JERILYN Administration Hydromorphone HCl 0.5 mg 12/27/22 03:58 Hydromorphone 0.5 Mg/0.5 Ml Syringe IV-PUSH Q4H PRN Pain Scale 8 - 10 Lisinopril 5 mg 12/27/22 09:00 Lisinopril 5 Mg Tablet PO 12/27/23 08:59 DAILY JERILYN Metoprolol Succinate 50 mg 12/27/22 09:00 Metoprolol Succinate 50 Mg Tab.Er.24h PO 12/27/23 08:59 DAILY JERILYN Nicotine 1 each 12/27/22 00:30 12/27/22 00:48 [...] 40 Mg Tablet. PO 12/27/23 08:59 DAILY [facility] Paroxetine HCl 40 mg 12/27/22 09:00 Paroxetine [...] 15 Gm Tube TOPICAL 12/27/23 08:59 BID [facility] Vitamin D 50 mcg 12/27/22 09:00 Cholecalciferol 25 Mcg (1,000 Units) Tablet PO 12/27/23 08:59 DAILY JERILYN A&P - Hospitalist Assessment/Plan (1) Fall: (2) Acute hip pain: (3) Inability to perform activities of daily living: (4) Physical deconditioning: Plan Patient is a 77-year-old female with past medical history of coronary disease status post PCI in 2019 with stent, COPD, hypertension, chronic kidney disease stage III, TIA, sleep apnea and moderate to severe pulmonary hypertension as troy done in 2019.? Patient brought to the [...] any cardiac arrhythmia.? Patient will likely require residential facility on discharge. Documented By: Carla Hagan MD 12/27/22 0857 Signed By: <Electronically signed by Carla Hagan MD> 12/27/22 1240 <Electronically signed by DO SEAN Armas> 12/27/22 1134 [facility] Work Phone: Progress note Author Carla Hagan [facility] December 28, 2022 11:14am Note Date/Time December 28, 2022 9:27 am [facility] [address] [place] [address] Hospitalist Progress Note Signed Patient: Gera Perdue MR#: [id number] : 1945 Acct:[id number] Age/Sex: 77 / F Adm Date: 3 Loc: 4N Room: [address] [place] [address] Type: ADM IN Attending Dr: Carla Hagan [...] 12/28/22 05:24 Tramadol 50 Mg Tablet PO 08/28/23 23:40 50 mg Q6H PRN Administration Pain [...] of coronary disease status post PCI in 2018 with stent, COPD, hypertension, chronic kidney disease [...] any cardiac arrhythmia.? Patient will likely require residential facility on discharge. Patient is medically cleared for discharge pending placement approval. The patient would likely need to have additional work-up, investigation and therapeutic intervention but will be determined based on the clinical progression and follow-up test result Documented By: Carla Hagan MD 12/28/22 0918 Signed By: <Electronically signed by Carla Hagan MD> 12/28/22 1114 <Electronically signed by DO SEAN Armas> 12/28/22 1048 [facility] Work Phone: Progress note Author Carla Hagan [facility] December 29, 2022 10:00am Note Date/Time December 29, 2022 10:0 0am [facility] [address] [place] [address] Hospitalist Progress Note Signed Patient: Gera Perdue MR#: [id number] : 1945 Acct:[id number] Age/Sex: 77 / F Adm Date: 3 Loc: 4N Room: [address] [place] [address] Type: ADM IN Attending Dr: Carla Hagan [...] place, time and person. Morbidly obese HEENT: [place] conjunctiva and NL buccal mucosa Neck: Supple, [...] 12/28/22 05:24 Tramadol 50 Mg Tablet PO 08/28/23 23:40 50 mg Q6H PRN Administration Pain [...] signed by Carla Hagan MD> 12/29/22 1000 [facility] Work Phone: Progress note Author Carla Hagan [facility] December 30, 2022 9:53am Note Date/Time December 30, 2022 9:53 am [facility] [address] [place] [address] Hospitalist Progress Note Signed Patient: Gera Perdue MR#: [id number] : 1945 Acct:[id number] Age/Sex: 77 / F Adm Date: 3 Loc: 4N Room: [id number] Type: ADM IN Attending Dr: Carla Hagan [...] place, time and person. Morbidly obese HEENT: [place] conjunctiva and NL buccal mucosa Neck: Supple, [...] Jil PRN Reason Stop Dose Admin Acetaminophen 650 [...] 12/27/22 09:00 12/30/22 08:05 Pantoprazole 40 Mg Tablet.Dr PO 12/27/23 08:59 [...] anemia Plan is to discharge patient to residential unit for short period of time for [...] signed by Carla Hagan MD> 12/30/22 0953 [facility] Work Phone: Progress note Author Jolanta Mckenzie [facility] July 11, 2023 12:47pm Note Date/Time July 11, 2023 10:10am [facility] [address] [place] [address] Hospitalist Progress Note Signed with Ling Patient: Gera Perdue MR#: [id number] : 1945 Acct:[id number] Age/Sex: 77 / F Adm Date: 3 Loc: Room: [address] [place] [address] Type: ADM IN Attending Dr: Jolanta Mckenzie MD Copies to: ~ ADDENDUM1 Patient was personally seen by me on the day of encounter, reviewed her history and performed dai elements of exam and formulated the plan of care and confirmedthe resident/interns note below. Addendum Documented By: Jolanta Mckenzie MD 07/11/23 124 Addendum Signed By: <Electronically signed by Jolanta Mckenzie MD> 07/11/23 1247 Date of Service: 07/11/2023 Subjective Subjective Narrative: [...] 1,000 Ml IV 07/09/24 13:59 75 mls/hr .[id number] JERILYN Administration Ceftriaxone Sodium 1 gm in [...] signed by Jolanta Mckenzie MD> 07/11/23 1246 [facility] Work Phone: Progress note Author Jolanta Mckenzie [facility] July 12, 2023 3:00pm Note Date/Time July 12, 2023 2:16pm [facility] [address] [place] [address] Hospitalist Progress Note Signed with Addenda Patient: Gera Perdue MR#: [id number] : 1945 Acct:[id number] Age/Sex: 77 / F Adm Date: 3 Loc: Room: [address] [place] [address] Type: ADM IN Attending Dr: Jolanta Mckenzie [...] and switch to oral prednisone. PT recommended residential facility which patient is refusing with plan to go home with home health care. Addendum Documented By: Jolanta Mckenzie MD 07/12/23 1500 Addendum Signed By: <Electronically signed by Jolanta Mcknezie MD> 07/12/23 1500 Date of Service: 07/12/2023 [...] 1,000 Ml IV 07/09/24 13:59 75 mls/hr .[id number] JERILYN Administration Ceftriaxone Sodium 1 gm in [...] 07/11/23 09:00 07/12/23 08:15 Pantoprazole 40 Mg Tablet. PO 07/10/24 08:59 40 mg DAILY JERILYN [...] signed by Jolanta Mckenzie MD> 07/12/23 1457 [facility] Work Phone: Progress note Author Jolanta Mckenzie [facility] July 13, 2023 1:59pm Note Date/Time July 13, 2023 10:40am [facility] [address] [place] [address] Hospitalist Progress Note Signed with Addenda Patient: Gera Perdue MR#: [id number] : 1945 Acct:[id number] Age/Sex: 77 / F Adm Date: 3 Loc: 3T Room: [address] [place] [address] Type: ADM IN Attending Dr: Jolanta Mckenzie [...] but patient also on steroid. Discussed regarding residential facility she has not decided yet. Give 1 dose of IV Lasix and resume oral Lasix from tomorrow. Addendum Documented By: Jolanta Mckenzie MD 07/13/23 3615 Addendum Signed By: <Electronically signed by Jolanta Mckenzie MD> 07/13/23 3195 Date of Service: 07/13/2023 Subjective Subjective Narrative: [...] 07/11/23 09:00 07/13/23 09:37 Pantoprazole 40 Mg Tablet. PO 07/10/24 08:59 40 mg DAILY JERILYN [...] signed by Jolanta Mckenzie MD> 07/13/23 1356 [facility] Work Phone: Progress note No data available for this section [facility] Summary Purpose Family History No Family History [...] FoundDocuments on File Type Date Recorded Patient Preparation Center Coordinator Expl anation Advance Directives and Living Will Power of Spectroscopist Latest Code Status on File Code Status Date Activated Date Inactivated Comments Full Code 08/02/2019 12:07 AM Advance Directive Response Recorded Date/ Time Advance Directives Yes May 13 2:57pm Advance Directive Response Recorded Date/ Time Advance Directives Yes May 13 1:57pm Documents on File Type Date Recorded Patient Preparation Center Coordinator Expl anation DNR Physician Order 10/29/2023 8:25 AM Durable Power of Spectroscopist 10/29/2023 6:51 AM Latest Code Status on File Code Status Date Activated Date Inactivated Comments DNR Comfort Care Arrest (DNR -CCA) Tucker 10/11/2023 11:48 AM 10/23/2023 1:09 PM Code Status History Code Status Date Activated Date Inactivated Comments Full Code 10/05/2023 8:00 PM 10/11/2023 11:48 AM Hospital Course * Ellen Gonzalez MD - 08/04/2019 1:39 PM EDT [facility] IN-PATIENT SERV[facility] Discharge Summary Patient ID: Gera Perdue : 1945 ACCOUNT: [id number] Patient's PCP: Physician Ng (Inactive) Admit Date: 08/01/2019 Discharge Date: 08/04/2019 [...] mesalamine 4 g enema Commonly known as: DEBBIE ASK your doctor about these medications lisinopril [...] -- -- -- -- -- Admitting Physician: Vereniec Chilel MD PCP: Physician Ng (Inactive) Discharging Nurse: LASHAY Hall Discharging [facility] Unit/Room#: 0236/0236-01 Discharging Unit Emergency Contact: Extended Emergency Contact Information Primary Emergency Contact: Rebecca George Relation: Grandchild Secondary Emergency Contact: Alethea Heurta Relation: Child Past Surgical History: Past Surgical [...] Assisted Dressing Assisted Toileting Assisted Feeding Independent Payment Collector Independent Med Delivery whole Wound Care Documentation [...] applicable) Name: Address: Dialysis Schedule: Phone: Fax: Spear Fisher/Block Bolter Mule Operator signature: {Esignature:[id number]} PHYSICIAN SECTION Prognosis: Good Condition at Discharge: [...] sent through Care Everywhere. * Low-Fiber Diet (Grenadian) documented in this encounter History of Present Illness * Ellen Gonzalez MD - 08/04/2019 10:03 AM EDT [facility]PAT[facility] Progress Note 08/04/2019 10:03 AM Name: Gera Perdue Acct: [id number] Room: [facility] [id number] Day: 3 Admit Date: 08/01/2019 11:58 PM [...] Gonzalez MD - 08/03/2019 12:24 PM EDT [facility]PAT[facility] Progress Note 08/03/2019 12:24 PM Name: Gera Perdue Acct: [id number] Room: 0236/0236-01 IP Day: 2 Admit Date: 08/01/2019 11:58 PM [...] 199 MPV 9.3 9.4 Chemistry: Recent Labs 08/02/1961219 0943 08/03/19 0505 NA -- 140 142 [...] Emergency and Critical Surgical Services PROGRESS NOTE (Garrick 2.0) PATIENT NAME: Gera Perdue DATE: 08/03/2019 [...] 0.72 GLUCOSE 108* 78 COAGS: Recent Labs 08/02/19 0943 08/03/19 0505 PROT 6.4 6.2* RADIOLOGY: No new images Sloane Alston, DO08/03/19, 6:30 AM Attending Note I have reviewed the above [facility] resident progress note and I either performed [...] 08/02/2019 9:16 AM EDT Attempted to call [facility] pharmacy in [place] to retrieve home medication list, but pharmacy does not open until 10:00 am. Flash Welder will attempt again after this time. * Kathy Dillon RN - 08/02/2019 5:53 AM EDT NG [...] Coronary atherosclerosis of unspecified type of vessel, [place] or graft Mixed hyperlipidemia Essential hypertension Unspecified [...] XR chest 2 views Jenna Engle MD [address] [address] Referral ID Status Reason Start Date Expiration Date Visits Requested Visits Authorized [id number] Authorized Perform Procedure 01/06/2024 01/05/2025 1 1 Specialty Diagnoses / Procedures Referred By Contac t Referred To Contact Diagnoses Shortness of breath Procedures ECG 12 Lead Jenna Engle MD [address] [place] [address] Referral ID Status Reason Start Date Expiration Date V isits Requested Visits Authorized [id number] Authorized 01/06/2024 01/05/2025 1 1 Specialty Diagnoses / Procedures Referred By Contac t Referred To Contact Cardiology Diagnoses Shortness of breath Procedures Follow Up In Cardiology Jenna Engle MD [address] [place] [address] Jenna Engle MD [address] [place] [phone] Referral ID Status Reason Start Date Expiration Date V isits Requested Visits Authorized [id number] Authorized 01/06/2024 01/05/2025 1 1 Specialty Diagnoses / Procedures Referred By Contac t Referred To Contact Cardiology Diagnoses Shortness of breath Procedures Transthoracic Echo Complete AR ECHO TTHRC R-T 2D W/WOM-MODE COMPL SPEC&COLR D Jenna Engle MD [address] [facility] [address] [place] [address] Referral ID Status Reason Start Date Expiration Date Visits Requested Visits Authorized [id number] Pending Review Perform Procedure 01/06/2024 01/05/2025 1 1 Specialty Diagnoses / Procedures Referred By Contac t Referred To Contact Tacker Elastic Band Diagnoses Essential hypertension (CMS/HCC) Stage 3a chronic kidney disease (HCC) (CMS/HCC) Sepsis with acute renal failure without septic shock, due to unspecified organism, unspecified acute renal failure type (CMS/HCC) Medication management Procedures AR OFFICE/OUTPATIENT NEW HIGH MDM 60 MINUTES Lilliam Cheek, MECHATRONICS TECHNOLOGIST [address] [place] [address] [phone] Referral ID Status Reason Start Date Expiration Date Visits Requested Visits Authorized [id number] Pending Review Specialty Services Required 12/09/2023 06/06/2024 1 1 Specialty Diagnoses / Procedures Referred By Contac t Referred To Contact Home Health Services Diagnoses SOB (shortness of breath) Wheezing Urinary tract bacterial infections Essential hypertension (CMS/HCC) Mixed hyperlipidemia (CMS/HCC) Stage 3a chronic kidney disease (HCC) (CMS/HCC) Sepsis with acute renal failure without septic shock, due to unspecified organism, unspecified acute renal failure type (CMS/HCC) Medication management DidLilliam knox L, MECHATRONICS TECHNOLOGIST [address] [place] [address] Referral ID Status Reason Start Date Expiration Date Visits Requested Visits Authorized [id number] Pending Review Specialty Services Required 12/09/2023 02/07/[phone] Specialty Diagnoses / Procedures Referred By Contac t Referred To Contact Obstetrics and Gynecology Diagnoses Urinary tract bacterial infections Female bladder prolapse Procedures AR OFFICE/OUTPATIENT NEW HIGH MDM 60 MINUTES Lilliam Cheek, GIOVANY [address] [place] [address] Cee Cordero DO [address] [place] [address] Referral ID Status Reason Start Date Expiration Date Visits Requested Visits Authorized [id number] Pending Review Specialty Services Required 12/09/2023 06/06/2024 1 1 Additional Source Comments INFORMATION SOURCE (unrecogn ized section and content) DATE CREATED AUTHOR 07/12/2018 [facility] DATE CREATED AUTHOR AUTHOR'S ORGANIZ ATION 08/29/2019 [facility] DATE CREATED AUTHOR AUTHOR'S ORGANIZ ATION 12/24/2020 [place] DATE CREATED AUTHOR AUTHOR'S ORGANIZ ATION 05/01/2022 [facility] dical Specialist DATE CREATED AUTHOR AUTHOR'S ORGANIZ ATION 01/02/2023 [facility] DATE CREATED AUTHOR AUTHOR'S ORGANIZ ATION 01/21/2023 [facility] DATE CREATED AUTHOR AUTHOR'S ORGANIZ ATION 02/01/2024 [facility] DATE CREATED AUTHOR AUTHOR'S ORGANIZ ATION 02/16/2024 [facility] DATE CREATED AUTHOR AUTHOR'S ORGANIZ ATION 02/26/2024 [facility] DATE CREATED AUTHOR AUTHOR'S ORGANIZ ATION 04/23/2024 [facility] DATE CREATED AUTHOR AUTHOR'S ORGANIZ ATION 05/02/2024 [facility] DATE CREATED AUTHOR AUTHOR'S ORGANIZ ATION 07/04/2024 [facility] dical Specialists [facility] DATE CREATED AUTHOR AUTHOR'S ORGANIZ ATION 08/20/2024 [facility] Reason for Visit (unrecogniz ed section and content) Status Reason Specialty Diagnoses / Procedures Referre d By Contact Referred To Contact Diagnoses Small bowel obstruction (HCC) Verenice Shea MD [address] [address] [facility] Reason Onset Date Comments Neuro Appt 10/30/2023 Reason Comments Hospital Follow-up Reason Comments New Patient Visit Old [facility]pm patient Specialty Diagnoses / Procedures Referred By Contac t Referred To Contact Cardiology Diagnoses Shortness of breath Procedures Transthoracic Echo Complete AR ECHO TTHRC R-T 2D W/WOM-MODE COMPL SPEC&COLR D Jenna Engle MD [address] [place] [address] Referral ID Status Reason Start Date Expiration Date Visits Requested Visits Authorized [id number] Authorized Perform Procedure 01/06/2024 01/05/2025 1 1 Reason Comments Follow-up 1m echo results Specialty Diagnoses / Procedures Referred By Contvianney t Referred To Contact Cardiology Diagnoses Shortness of breath Procedures Follow Up In Cardiology Jenna Engle MD [address] [place] [address] Jenna Engle MD 254 [facility] [address] [place] [address] Referral ID Status Reason Start Date Expiration Date V isits Requested Visits Authorized [id number] Authorized 01/06/2024 01/05/2025 1 1 Care Teams (unrecognized sec tion and content) Team Status: Inactive Member Role Status Dates Gustavo Salas , Primary Care Provider Active Hilario Yeung , DO Emergency Provider Active Team Status: Active Member Role Status Dates Gustavo Salas DO Primary Care Provider Active Team Status: Inactive Member Role Status Dates Gustavo Salas DO Primary Care Provider Active Richard Pearson , DO Emergency Provider Active Team Status: Active [...] Gustavo Salas DO Primary Care Provider Active Kadie Jones [facility] Emergency Provider Active Team Status: Active Member Role Status Dates Gustavo Salas , DO Primary Care Provider Active Marshall Dominguez , DO Emergency Provider Active Jolanta Mckenzie MD Admit Provider, Attending Provider Active Team Status: Inactive Member Role Status Dates Gustavo Salas , DO Primary Care Provider Active Marshall Dominguez , DO Emergency Provider Active Jolanta Mckenzie MD Admit Provider, Attending Provider Active Team Status: Active Member Role Status Dates Maury Morrissey , DO Emergency Provider Active Gustavo Salas , DO Primary Care Provider Active Jesus Alberto Aquino MD Admit Provider, Attending Provider Active Team Status: Inactive Member Role Status Dates Maury Morrissey , DO Emergency Provider Active Gustavo Salas , DO Primary Care Provider Active Jesus Alberto Aquino MD Admit Provider, Attending Provider Active Director Of Outreach Relationship Specialty Start Date End Date Mely Camarillo APRN-[employer]OPPING CENTRE MANAGER [address] [place] [address] PCP - General Family Medicine 04/08/19 Director Of Outreach Relationship Specialty Start Date End Date [facility] [address] [place] [address] PCP - General Family Medicine 04/08/19 Director Of Outreach Relationship Specialty Start Date End Date Mely Camarillo APRN-[facility] [address] [place] [address] PCP - General Family Medicine 04/08/19 Director Of Outreach Relationship Specialty Start Date End Date Gustavo Salas DO [address] [place] [address] PCP - General Internal Medicine 12/09/23 Leah Burgos RN [address] [place] [address] Registered Nurse Internal Medicine 12/09/23 Director Of Outreach Relationship Specialty Start Date End Date Gustavo Salas [address] [place] [address] PCP - General Internal Medicine 01/06/24 Director Of Outreach Relationship Specialty Start Date End Date Gustavo Salas DO [address] [place] [address] PCP - General Internal Medicine 01/06/24 Director Of Outreach Relationship Specialty Start Date End Date Gustavo Salas DO [address] [place] [address] PCP - General Internal Medicine 01/06/24 Team Status: Inactive Member Role Status Dates Gustavo Salas DO Primary Care Provider Active Start: January 06, 2024 End: January 06, 2024 Jenna Engle MD Attending Provider Active Star t: January 06, 2024 End: January 06, 2024 Team Status: Active Member Role Status Dates Gustavo Salas DO Primary Care Provider Active Start: February 14, 2024 Kadie Jones [facility]- Emergency Provider Active Start: February 14, 2024 Lucho Grullon MD Admit Provider, Atte nding Provider Active Start: February 14, 2024 Team Status: Inactive Member Role Status Dates Gustavo Salas DO Primary Care Provider Active Start: February 14, 2024 End: February 17, 2024 Kadie Jones [facility]- Emergency Provider Active Start: February 14, 2024 End: February 17, 2024 Lucho Grullon MD Admit Provider Active Start: February 14, 2024 End: February 17, 2024 Michoacano Mckenzie MD Attending Provider Active Start: February 14, 2024 End: February 17, 2024 Team Status: Active Member Role Status Dates Gustavo Salas DO Primary Care Provider Active Start: February 14, 2024 Kadie Jones [facility] Emergency Provider Active Start: February 14, 2024 Lucho Grullon MD Admit Provider, Cintia faith Provider, Other Provider Active Start: February 14, [...] BE BASED ON THE PRIMARY CLINICAL RECORDS. [facility] [employer] provides no warranty or guarantee of the accuracy or completeness of information in this document.
[2024-09-19] MEDS: METHYLPREDNISOLONE SOD SUCC PF 125 MG/2 ML VIAL IVP (12:30)
[2024-09-19 12:31] LABS: Basophils Absolute Auto 0.1 10^3/uL (0.0-0.1); Basophils Percent Auto 0.7 % (0.2-2.0); Eosinophils Absolute Auto 0.4 10^3/uL (0.0-0.7); Eosinophils Percent Auto 3.2 % (0.9-7.0); Hematocrit 35.4 % (36.0-48.0); Hemoglobin 10.4 g/dL (12.0-16.0); Immature Granulocytes Abs Auto 0.04 10^3/uL (0.00-0.03); Immature Granulocytes Pct Auto 0.4 % (0.0-0.5); Lymphocytes Absolute Auto 2.9 10^3/uL (1.2-3.8); Lymphocytes Percent Auto 26.2 % (20.5-60.0); Mean Corpuscular HGB Conc 29.4 g/dL (29.9-35.2); Mean Corpuscular Hemoglobin 23.2 pg (26.7-34.0); Mean Corpuscular Volume 78.8 fL (81.0-99.0); Mean Platelet Volume 8.2 fL (9.5-13.5); Monocytes Absolute Auto 0.8 10^3/uL (0.3-0.8); Monocytes Percent Auto 7.6 % (1.7-12.0); Neutrophils Absolute Auto 6.7 10^3/uL (1.4-6.5); Neutrophils Percent Auto 61.9 % (43.0-75.0); Platelet Count 334 10^3/uL (150-450); Red Blood Count 4.49 10^6/uL (4.20-5.40); Red Cell Distribution Width 21.2 % (11.0-15.0); White Blood Count 10.9 10^3/uL (4.0-11.0)
[2024-09-19] MEDS: ALBUTEROL SULFATE 2.5 MG/3 ML VIAL NEB IH ×2 (12:36→12:59)
[2024-09-19 12:46] LABS: Influenza Virus A Antigen Negative; Influenza Virus B Antigen Negative; Internal Control Within Normal Limits
[2024-09-19 12:47] LABS: Internal Control Within Normal Limits; SARS-CoV-2 Ag NEGATIVE (NEGATIVE)
[2024-09-19 12:50] LABS: Anion Gap 11.5; Calcium 8.9 mg/dL (8.5-10.1); Carbon Dioxide 26.3 mmol/L (21.0-32.0); Chloride 106 mmol/L (98-107); Estimated GFR (African America 54 (>=60 mL/min/1.73m^2); Estimated GFR (Non-African Ame 45 (>=60 mL/min/1.73m^2); Glucose 129 mg/dL (74-106); Potassium 3.8 mmol/L (3.5-5.1); Sodium 140 mmol/L (136-145); Troponin I High Sensitivity 6.1 pg/mL (4.0-51.3)
[2024-09-19] MEDS: LEVOFLOXACIN IN DEXTROSE 5 % 750 MG/150 ML PREMIX 100 MG IV (13:05)
--- OUTSIDE RECORDS SUMMARY | 2024-09-19 14:24 | XMS_ITS | CCD ---
Author Organization [facility] Care Team Providers Care Life Skills Educator Name Role Phone Mely Camarillo Unavailable Unavailable [...] Unavai DO Gustavo Hernandez Primary Care Provider [phone] DO Richard Pearson Emergency Provider [phone] ETHAN Morrissey Emergency Provider MD Jolanta Mckenzie Admit Provider MD Jolanta Mckenzie Attending Provider MD Jesus Alberto Aquino Attending Provider Dr. Charlie Mondragon II Attending Unavailable TORI ., NARENDALONDRA Admitting Sahra vailable TORI ., NARENDCHAIMATH Attending Sahra dottyble DR SVITLANA HAMMOND Primary Care Unavailable DO Gustavo Salas Primary Care Provider Karen SANITATION ASSOCIATE-SRINI [place] Emergency Provider [phone] DO Marshall Dominguez Emergency Provider MD Jolanta Mckenzie Admit Provider MD Jolanta Mckenzie Attending Provider DO Maury Morrissey Emergency Provider MD Jesus Alberto Aquino Admit Provider MD Jesus Alberto Aquino Attending Provider [phone] [employer] HEALTH ECONOMIST-DIRECTOR EMERGENCY, Mely A Primary Care Provid er Gustavo Salas DO Primary Care Provider [phone] Aubrey METZ, Leah Unavailable Gustavo Salas DO Primary Care Provider [phone] GUSTAVO SALAS Primary Care Physician Unavail able JENNA ENGLE Referring Unavailable MARITZA, GUSTAVO A Primary Care Unavailable DO Gustavo Salas Primary Care Provider MD Jenna Engle Attending Provider [phone] Karen [facility] Kadie E Emergency Provider [phone] MD Lucho Grullon Admit Provider MD Lucho Grullon Attending Provider [phone] JENNA ENGLE Attending Unavailable MARITZA, GUSTAVO A Primary Care Unavailable JENNA ENGLE Attending Unavailable JENNA ENGLE Referring Unavailable MARITZAGUSTAVO Primary Care Unavailable MD Michoacano Mckenzie Attending Provider [phone] Renae Ponce X Attending Unavailable MARITZA, GUSTAVO [...] Care Unavailable JAMAL, NANCY Referring Unavailable VONTHRON, EMLY A Primary Care Unavailable MARITZA GUSTAVO A [...] Translations: [acetaminophen-ox ycodone] Drug Allergy 3 vomiting [email or web address] Other (20 sources) Aspirin; Translations: [aspirin] Drug Allergy 9 Other, Nausea/vomiting [facility] (4 sources) Acetaminophen / oxyCODONE; Translations: [OXYCODONE-ACETAM INOPHEN] Drug Allergy 3 GI intolerance [facility] (5 sources) Ibuprofen; Translations: [IBUPROFEN] Drug Allergy 4 Nausea/vomiting [facility] (3 sources) Acetaminophen; Translations: [acetaminophen] Drug Allergy 4 vomiting [facility] (5 sources) oxyCODONE; Translations: [OXYCODONE] Drug Allergy 1 vomiting [facility] (1 source) Acetaminophen / oxyCODONE; Translations: [acetaminophen-ox ycodone] Drug Allergy [facility] Repository Medications Current Medications Medication Drug [...] needed Orally every 8 hrs PRN Active [id number] 200 actuat albuterol 0.09 mg/actuat metered dose [...] day(s), # 14 cap(s), Refills(s) 0, Pharmacy: [id number], 170, cm, 01/30/24 13:39:00 EDT, [...] BID Active take 1 capsule by mo mnh in the morning cholecalciferol, vitamin D3, 2,000 [...] 1 puff(s) by inhalation in the morning Nsyvysknxwu-Miiqcqaxj-Wtfigl (Trelegy Ellipta) 100-62.5-25 MCG/ACT aerosol powder Indications: Panlobular emphysema (CMS/HCC) Inhale 1 puff in the morning. 1 each 04/01/2023 12/09/2023 Discontinued (Other) Start: 04-01-2023 take 1 puff(s) by inhalation once daily trqzjdewgae-vjdumcqlm-edxpppcj (TRELEGY ELLIPTA) 100-62.5-25 mcg blister with device Inhale 1 puff once daily. 0 04/01/2023 Active Start: 02-23-2020 End: 04-25-2020 Khlbjwqkebm-Sgxestkcx-Rqjnsq er (Trelegy Ellipta) 100-62.5-25 mcg blister with device Discontinued 1 PUFF INHALATION As Directed February 22, 2020 11:00pm April 25, 2020 5:58pm Start: 02-23-2020 End: 04-25-2020 Qmplirglcqs-Dgygwczfl-Yyywfk er (Trelegy Ellipta) 100-62.5-25 mcg blister with [...] 06/17/2023 Active Start: 06-17-2023 nystatin (Myco statin) [id number] UNIT/GM powder Indications: Rash APPLY TOPICALLY TO [...] by mouth nightly. 0 10/23/2023 Active sennosides, nursing home 8.6 mg oral tablet (2 sources) Start: [...] every four to six hours Hydrocodone-Acetami nophen ([place]) 5-325 mg tablet Discontinued 1 TAB PO EVERY 4-6 HOURS 07 30January 15, 2020 February 23, 2020 2:44pm Start: 08-02-2019 HYDROcodone-ac etaminophen (NORCO) 5-325 MG per tablet 1 tablet Start: 01-02-2019 End: 01-12-2019 take 1 tablet by mouth every six hours Hydrocodone-Acetaminophen ([place]) 5-325 mg tablet Discontinued 1 TAB PO Q6H 16 03January 02, 2019 January 12, 2019 6:44am Start: 06-22-2018 End: 08-01-2019 take 1 tablet by mouth every four to six hours Hydrocodone-Acetaminophen ([place]) 5-325 mg tablet Discontinued 1 TAB PO [...] D2 Compound Start: 04-28-2020 End: 12-26-2022 take 21713 [IU] by mouth every month Ergocalciferol (Vitamin D2) Discontinued [id number] UNIT PO every month April 28, 2020 [...] application Externally Twice a day prn Active Azcbrbiouhox-Zgngcxcq-Dxhnda (Multivitamin 50 Plus) Tablet (10 sources) Start: 02-23-2020 End: 04-25-2020 Hsjpcxbyietb-Tpguxips-Wjaiqc (Multivitamin 50 Plus) Tablet Discontinued 1 TAB PO Daily February 22, 2020 11:00pm April 25, 2020 5:58pm Start: 02-23-2020 End: 04-25-2020 Ofcilvlepyez-Mjprrjer-Hwkuen (Multivitamin 50 Plus) Tablet Discontinued 1 TAB [...] DOSES CALL 911 Sublingual as needed Active Rhome-3 Fatty Acids-Fish Oil (Fish Oil) 300-1,000 mg capsule (10 sources) Start: 08-01-2019 End: 02-23-2020 take 1 capsule by mouth once daily Rhome-3 Fatty Acids-Fish Oil (Fish Oil) 300-1,000 mg capsule Discontinued 1000 MG PO Daily July 31, 2019 11:00pm February 23, 2020 3:42pm Start: 08-01-2019 End: 02-23-2020 take 1 capsule by mouth once daily Rhome-3 Fatty Acids-Fish Oil (Fish Oil) 300-1,000 mg [...] Translations: [Stage 3a chronic kidney disease (HCC) ([facility])] Onset: 3 12-09-2023 Chronic Chronic kidney disease (3 sources) Chronic kidney disease; Translations: [Chronic kidney disease, stage 3b ([facility]/HCC)] Onset: 4 Chronic obstructive pulmonary disease [...] detection for pulmonary nodules was performed utilizing [employer] software. FINDINGS: No pleural or pericardial effusion. [...] Blake MD on 05/01/2024 9:36 AM Normal [facility] BLOOD UREA NITROGENon 2023 Urea nitrogen [Mass/Vol] 20 mg/dL Normal 5-27 [facility] Comment on above: Performed By: #### Timmy DENG, BMP #### [facility] ([id number]) [address] [place] [address] 87139 CBC AND AUTO DIFFon 04-13-20 24 ABSOLUTE BASOPHIL 0.0 X10E9/L Normal 0.0-0.2 [facility] Comment on above: Performed By: #### Timmy DENG, BMP #### [facility] ([id number]) [address] [place] [address] 53963 ABSOLUTE NEUTROPHIL 7.1 X10E9/L High 1.5-6.6 [facility] Comment on above: Performed By: #### Timmy DENG, BMP #### [facility] ([id number]) [address] [place] [address] 72508 Basophils/100 WBC (Bld) 0.4 % Normal [facility] Comment on above: Performed By: #### Timmy DENG, BMP #### [facility] ([id number]) [address] [place] [address] 86624 Eosinophils (Bld) [#/Vol] 0.3 10*3/uL Normal 0.0-0.4 [facility] Comment on above: Performed By: #### Timmy DENG, BMP #### [facility] ([id number]) [address] [place] [address] 82798 Eosinophils/100 WBC (Bld) 2.8 % Normal [facility] Comment on above: Performed By: #### C SOWMYA, BMP #### [facility] ([id number]) [address] [place] [address] 94433 Erythrocyte distribution width (RBC) [Ratio] 19.0 % High 11.5-15.0 [facility] Comment on above: Performed By: #### C SOWMYA, BMP #### [facility] ([id number]) [address] [place] [address] 73673 Hematocrit (Bld) [Volume fraction] 27.8 % Low 35-47 [facility] Comment on above: Performed By: #### C SOWMYA, BMP #### [facility] ([id number]) [address] [place] [address] 53025 Hemoglobin (Bld) [Mass/Vol] 9.0 g/dL Low 11.7-15.5 [facility] Comment on above: Performed By: #### C SOWMYA, BMP #### [facility] ([id number]) [address] [place] [address] 04256 Lymphocytes (Bld) [#/Vol] 3.2 10*3/uL Normal 1.0-3.5 [facility] Comment on above: Performed By: #### C SOWMYA, BMP #### [facility] ([id number]) [address] [place] [address] 11934 Lymphocytes/100 WBC (Bld) 27.2 % Normal [facility] Comment on above: Performed By: #### C SOWMYA, BMP #### [facility] ([id number]) [address] [place] [address] 70123 MCH (RBC) [Entitic mass] 24.5 pg Low 27-34 [facility] Comment on above: Performed By: #### C SOWMYA, BMP #### [facility] ([id number]) [address] [place] [address] 35376 MCHC (RBC) [Mass/Vol] 32.3 g/dL Normal 32-36 [facility] Comment on above: Performed By: #### C SOWMYA, BMP #### [facility] ([id number]) [address] [place] [address] 72278 MCV (RBC) [Entitic vol] 76 fL Low 80-100 [facility] Comment on above: Performed By: #### C SOWMYA, BMP #### [facility] ([id number]) [address] [place] [address] 39766 Monocytes (Bld) [#/Vol] 1.0 10*3/uL High 0-0.9 [facility] Comment on above: Performed By: #### C SOWMYA, BMP #### [facility] ([id number]) [address] [place] [address] 48913 Monocytes/100 WBC (Bld) 8.4 % Normal [facility] Comment on above: Performed By: #### C SOWMYA, BMP #### [facility] ([id number]) [address] [place] [address] 61304 Neutrophils/100 WBC (Bld) 61.2 % Normal [facility] Comment on above: Performed By: #### C SOWMYA, BMP #### [facility] ([id number]) [address] [place] [address] 98969 Platelet mean volume (Bld) [Entitic vol] 6.8 fL Low 7-12 [facility] Comment on above: Performed By: #### C SOWMYA, BMP #### [facility] ([id number]) [address] [place] [address] 81621 Platelets (Bld) [#/Vol] 353 10*3/uL Normal 150-450 [facility] Comment on above: Performed By: #### C BCA, BMP #### [facility] ([id number]) [address] [place] [address] 99553 RBC COUNT 3.67 X10E12/L Low 3.80-5.20 [facility] Comment on above: Performed By: #### C SOWMYA, BMP #### [facility] ([id number]) [address] [place] [address] 68360 WBC (Bld) [#/Vol] 11.7 10*3/uL High 4.0-11.0 [facility] Comment on above: Performed By: #### C SOWMYA, BMP #### [facility] ([id number]) [address] [place] [address] 57341 CREATININEon 04-13-2024 Creatinine [Mass/Vol] 1.16 mg/dL High 0.40-1.00 [facility] Comment on above: Result Comment: METH OD TRACEABLE TO IDMS STANDARD Performed By: #### C SOWMYA, BMP #### [facility] ([id number]) [address] [place] [address] 40823 GFR/1.73 sq M.predicted among non-blacks MDRD (S/P/Bld) [Vol rate/Area] 48 mL/min/{1.73_m2} Low >59 [facility] Comment on above: Result Comment: Reported eGFR is based on the CKD-EPI 2020 equation that does not use a race coefficient. Performed By: #### C SOWMYA, BMP #### [facility] ([id number]) [address] [place] [address] 11336 ELECTROLYTESon 04-13-2024 Anion gap [Moles/Vol] 4 mmol/L Low 5-15 [facility] Comment on above: Performed By: #### C BCA, BMP #### [facility] ([id number]) [address] [place] [address] 21541 Chloride [Moles/Vol] 106 mmol/L Normal 98-109 [facility] Comment on above: Performed By: #### C SOWMYA, BMP #### [facility] ([id number]) [address] [place] [address] 79513 CO2 [Moles/Vol] 25 mmol/L Normal 22-32 [facility] Comment on above: Performed By: #### C SOWMYA, BMP #### [facility] ([id number]) [address] [place] [address] 19682 Potassium [Moles/Vol] 4.0 mmol/L Normal 3.5-5.0 [facility] Comment on above: Performed By: #### C SOWMYA, BMP #### [facility] ([id number]) [address] [place] [address] 89855 Sodium [Moles/Vol] 135 mmol/L Normal 134-146 [facility] Comment on above: Performed By: #### C SOWMYA, BMP #### [facility] ([id number]) [address] [place] [address] 46139 BLOOD UREA NITROGENon 2023 Urea nitrogen [Mass/Vol] 19 mg/dL Normal 5-27 [facility] Comment on above: Performed By: #### C SOWMYA, BMP #### [facility] ([id number]) [address] [place] [address] 28044 CBC AND AUTO DIFFon 04-08-20 24 ABSOLUTE BASOPHIL 0.1 X10E9/L Normal 0.0-0.2 [facility] Comment on above: Performed By: #### C SOWMYA, BMP #### [facility] ([id number]) [address] [place] [address] 28499 ABSOLUTE NEUTROPHIL 4.2 X10E9/L Normal 1.5-6.6 [facility] Comment on above: Performed By: #### C SOWMYA, BMP #### [facility] ([id number]) [address] [place] [address] 12011 Basophils/100 WBC (Bld) 1.1 % Normal [facility] Comment on above: Performed By: #### C SOWMYA, BMP #### [facility] ([id number]) [address] [place] [address] 46032 Eosinophils (Bld) [#/Vol] 0.4 10*3/uL Normal 0.0-0.4 [facility] Comment on above: Performed By: #### C SOWMYA, BMP #### [facility] ([id number]) [address] [place] [address] 80928 Eosinophils/100 WBC (Bld) 4.0 % Normal [facility] Comment on above: Performed By: #### C SOWMYA, BMP #### [facility] ([id number]) [address] [place] [address] 39078 Erythrocyte distribution width (RBC) [Ratio] 18.5 % High 11.5-15.0 [facility] Comment on above: Performed By: #### C SOWMYA, BMP #### [facility] ([id number]) [address] [place] [address] 67993 Hematocrit (Bld) [Volume fraction] 28.4 % Low 35-47 [facility] Comment on above: Performed By: #### C SOWMYA, BMP #### [facility] ([id number]) [address] [place] [address] 35725 Hemoglobin (Bld) [Mass/Vol] 9.4 g/dL Low 11.7-15.5 [facility] Comment on above: Performed By: #### C SOWMYA, BMP #### [facility] ([id number]) [address] [place] [address] 45073 Lymphocytes (Bld) [#/Vol] 3.3 10*3/uL Normal 1.0-3.5 [facility] Comment on above: Performed By: #### C BCA, BMP #### [facility] ([id number]) [address] [place] [address] 62306 Lymphocytes/100 WBC (Bld) 37.1 % Normal [facility] Comment on above: Performed By: #### C BCA, BMP #### [facility] ([id number]) [address] [place] [address] 81372 MCH (RBC) [Entitic mass] 24.9 pg Low 27-34 [facility] Comment on above: Performed By: #### C SOWMYA, BMP #### [facility] ([id number]) [address] [place] [address] 15089 MCHC (RBC) [Mass/Vol] 33.0 g/dL Normal 32-36 [facility] Comment on above: Performed By: #### C SOWMYA, BMP #### [facility] ([id number]) [address] [place] [address] 32346 MCV (RBC) [Entitic vol] 76 fL Low 80-100 [facility] Comment on above: Performed By: #### C SOWMYA, BMP #### [facility] ([id number]) [address] [place] [address] 51142 Monocytes (Bld) [#/Vol] 1.0 10*3/uL High 0-0.9 [facility] Comment on above: Performed By: #### C SOWMYA, BMP #### [facility] ([id number]) [address] [place] [address] 17436 Monocytes/100 WBC (Bld) 10.9 % Normal [facility] Comment on above: Performed By: #### C BCA, BMP #### [facility] ([id number]) [address] [place] [address] 05705 Neutrophils/100 WBC (Bld) 46.9 % Normal [facility] Comment on above: Performed By: #### C SOWMYA, BMP #### [facility] ([id number]) [address] [place] [address] 78141 Platelet mean volume (Bld) [Entitic vol] 6.7 fL Low 7-12 [facility] Comment on above: Performed By: #### C SOWMYA, BMP #### [facility] ([id number]) [address] [place] [address] 29525 Platelets (Bld) [#/Vol] 367 10*3/uL Normal 150-450 [facility] Comment on above: Performed By: #### C SOWMYA, BMP #### [facility] ([id number]) [address] [place] [address] 74876 RBC COUNT 3.76 X10E12/L Low 3.80-5.20 [facility] Comment on above: Performed By: #### Timmy DENG, BMP #### [facility] ([id number]) [address] [place] [address] 53340 WBC (Bld) [#/Vol] 9.0 10*3/uL Normal 4.0-11.0 [facility] Comment on above: Performed By: #### Timmy DENG, BMP #### [facility] ([id number]) [address] [place] [address] 23232 CREATININEon 04-08-2024 Creatinine [Mass/Vol] 1.09 mg/dL High 0.40-1.00 [facility] Comment on above: Result Comment: METH OD TRACEABLE TO IDMS STANDARD Performed By: #### C SOWMYA, BMP #### [facility] ([id number]) [address] [place] [address] 82431 GFR/1.73 sq M.predicted among non-blacks MDRD (S/P/Bld) [Vol rate/Area] 52 mL/min/{1.73_m2} Low >59 [facility] Comment on above: Result Comment: Reported eGFR is based on the CKD-EPI 2020 equation that does not use a race coefficient. Performed By: #### C BCA, BMP #### [facility] ([id number]) [address] [place] [address] 02094 ELECTROLYTESon 04-08-2024 Anion gap [Moles/Vol] 8 mmol/L Normal 5-15 [facility] Comment on above: Performed By: #### C BCA, BMP #### [facility] ([id number]) [address] [place] [address] 06814 Chloride [Moles/Vol] 107 mmol/L Normal 98-109 [facility] Comment on above: Performed By: #### C BCA, BMP #### [facility] ([id number]) [address] [place] [address] 79773 CO2 [Moles/Vol] 24 mmol/L Normal 22-32 [facility] Comment on above: Performed By: #### C BCA, BMP #### [facility] ([id number]) [address] [place] [address] 10690 Potassium [Moles/Vol] 3.8 mmol/L Normal 3.5-5.0 [facility] Comment on above: Performed By: #### C BCA, BMP #### [facility] ([id number]) [address] [place] [address] 98214 Sodium [Moles/Vol] 139 mmol/L Normal 134-146 [facility] Comment on above: Performed By: #### C BCA, BMP #### [facility] ([id number]) [address] [place] [address] 05067 BLOOD UREA NITROGENon 2023 Urea nitrogen [Mass/Vol] 20 mg/dL Normal 5-27 [facility] Comment on above: Performed By: #### C BCA, BMP #### [facility] ([id number]) [address] [place] [address] 18282 CBC AND AUTO DIFFon 04-02-20 24 ABSOLUTE BASOPHIL 0.1 X10E9/L Normal 0.0-0.2 [facility] Comment on above: Performed By: #### Timmy DENG, BMP #### [facility] ([id number]) [address] [place] [address] 16797 ABSOLUTE NEUTROPHIL 4.8 X10E9/L Normal 1.5-6.6 [facility] Comment on above: Performed By: #### Timmy DENG, BMP #### [facility] ([id number]) [address] [place] [address] 71624 Basophils/100 WBC (Bld) 0.7 % Normal [facility] Comment on above: Performed By: #### Timmy DENG, BMP #### [facility] ([id number]) [address] [place] [address] 33520 Eosinophils (Bld) [#/Vol] 0.2 10*3/uL Normal 0.0-0.4 [facility] Comment on above: Performed By: #### Timmy DENG, BMP #### [facility] ([id number]) [address] [place] [address] 05332 Eosinophils/100 WBC (Bld) 2.5 % Normal [facility] Comment on above: Performed By: #### Timmy DENG, BMP #### [facility] ([id number]) [address] [place] [address] 28642 Erythrocyte distribution width (RBC) [Ratio] 18.6 % High 11.5-15.0 [facility] Comment on above: Performed By: #### Timmy DENG, BMP #### [facility] ([id number]) [address] [place] [address] 02751 Hematocrit (Bld) [Volume fraction] 28.2 % Low 35-47 [facility] Comment on above: Performed By: #### C SOWMYA, BMP #### [facility] ([id number]) [address] [place] [address] 71909 Hemoglobin (Bld) [Mass/Vol] 9.1 g/dL Low 11.7-15.5 [facility] Comment on above: Performed By: #### C SOWMYA, BMP #### [facility] ([id number]) [address] [place] [address] 86972 Lymphocytes (Bld) [#/Vol] 3.2 10*3/uL Normal 1.0-3.5 [facility] Comment on above: Performed By: #### C SOWMYA, BMP #### [facility] ([id number]) [address] [place] [address] 05497 Lymphocytes/100 WBC (Bld) 34.4 % Normal [facility] Comment on above: Performed By: #### C SOWMYA, BMP #### [facility] ([id number]) [address] [place] [address] 33075 MCH (RBC) [Entitic mass] 24.5 pg Low 27-34 [facility] Comment on above: Performed By: #### C SOWMYA, BMP #### [facility] ([id number]) [address] [place] [address] 49465 MCHC (RBC) [Mass/Vol] 32.4 g/dL Normal 32-36 [facility] Comment on above: Performed By: #### C SOWMYA, BMP #### [facility] ([id number]) [address] [place] [address] 99684 MCV (RBC) [Entitic vol] 76 fL Low 80-100 [facility] Comment on above: Performed By: #### C SOWMYA, BMP #### [facility] ([id number]) [address] [place] [address] 23004 Monocytes (Bld) [#/Vol] 1.0 10*3/uL High 0-0.9 [facility] Comment on above: Performed By: #### C SOWMYA, BMP #### [facility] ([id number]) [address] [place] [address] [id number] Monocytes/100 WBC (Bld) 11.1 % Normal [facility] Comment on above: Performed By: #### C SOWMYA, BMP #### [facility] ([id number]) [address] [place] [address] [id number] Neutrophils/100 WBC (Bld) 51.3 % Normal [facility] Comment on above: Performed By: #### C SOWMYA, BMP #### [facility] ([id number]) [address] [place] [address] [id number] Platelet mean volume (Bld) [Entitic vol] 6.9 fL Low 7-12 [facility] Comment on above: Performed By: #### C SOWMYA, BMP #### [facility] ([id number]) [address] [place] [address] 62150 Platelets (Bld) [#/Vol] 319 10*3/uL Normal 150-450 [facility] Comment on above: Performed By: #### C SOWMYA, BMP #### [facility] ([id number]) [address] [place] [address] 11038 RBC COUNT 3.72 X10E12/L Low 3.80-5.20 [facility] Comment on above: Performed By: #### C BCA, BMP #### [facility] ([id number]) [address] [place] [address] 04118 WBC (Bld) [#/Vol] 9.4 10*3/uL Normal 4.0-11.0 [facility] Comment on above: Performed By: #### C SOWMYA, BMP #### [facility] ([id number]) [address] [place] [address] CREATININEon 04-02-2024 Creatinine [Mass/Vol] 1.13 mg/dL High 0.40-1.00 [facility] Comment on above: Result Comment: METH OD TRACEABLE TO IDMS STANDARD Performed By: #### C SOWMYA, BMP #### [facility] ([id number]) [address] [place] [address] 09184 GFR/1.73 sq M.predicted among non-blacks MDRD (S/P/Bld) [Vol rate/Area] 50 mL/min/{1.73_m2} Low >59 [facility] Comment on above: Result Comment: Reported eGFR is based on the CKD-EPI 2020 equation that does not use a race coefficient. Performed By: #### C SOWMYA, BMP #### [facility] ([id number]) [address] [place] [address] 52632 ELECTROLYTESon 04-02-2024 Anion gap [Moles/Vol] 7 mmol/L Normal 5-15 [facility] Comment on above: Performed By: #### C SOWMYA, BMP #### [facility] ([id number]) [address] [place] [address] 65456 Chloride [Moles/Vol] 107 mmol/L Normal 98-109 [facility] Comment on above: Performed By: #### C BCA, BMP #### [facility] ([id number]) [address] [place] [address] 62606 CO2 [Moles/Vol] 25 mmol/L Normal 22-32 [facility] Comment on above: Performed By: #### C BCA, BMP #### [facility] ([id number]) [address] [place] [address] 70365 Potassium [Moles/Vol] 4.1 mmol/L Normal 3.5-5.0 [facility] Comment on above: Performed By: #### C BCA, BMP #### [facility] ([id number]) [address] [place] [address] 08162 Sodium [Moles/Vol] 139 mmol/L Normal 134-146 [facility] Comment on above: Performed By: #### C SOWMYA, BMP #### [facility] ([id number]) [address] [place] [address] 30056 BASIC METABOLIC PANLon 03-30 Anion gap [Moles/Vol] 8 mmol/L Normal 5-15 [facility] Comment on above: Performed By: #### C SOWMYA, BMP #### [facility] ([id number]) [address] [place] [address] 43795 Calcium [Mass/Vol] 9.1 mg/dL Normal 8.5-10.5 [facility] Comment on above: Performed By: #### C SOWMYA, BMP #### [facility] ([id number]) [address] [place] [address] 02444 Chloride [Moles/Vol] 104 mmol/L Normal 98-109 [facility] Comment on above: Performed By: #### C SOWMYA, BMP #### [facility] ([id number]) [address] [place] [address] 38166 CO2 [Moles/Vol] 26 mmol/L Normal 22-32 [facility] Comment on above: Performed By: #### C SOWMYA, BMP #### [facility] ([id number]) [address] [place] [address] 90235 Creatinine [Mass/Vol] 1.14 mg/dL High 0.40-1.00 [facility] Comment on above: Result Comment: METH OD TRACEABLE TO IDMS STANDARD Performed By: #### C SOWMYA, BMP #### [facility] ([id number]) [address] [place] [address] 92441 GFR/1.73 sq M.predicted among non-blacks MDRD (S/P/Bld) [Vol rate/Area] 49 mL/min/{1.73_m2} Low >59 [facility] Comment on above: Result Comment: Reported eGFR is based on the CKD-EPI 2020 equation that does not use a race coefficient. Performed By: #### C SOWMYA, BMP #### [facility] ([id number]) [address] [place] [address] 99676 Glucose [Mass/Vol] 101 mg/dL High 65-99 [facility] Comment on above: Performed By: #### C SOWMYA, BMP #### [facility] ([id number]) [address] [place] [address] 40708 Potassium [Moles/Vol] 4.2 mmol/L Normal 3.5-5.0 [facility] Comment on above: Performed By: #### C SOWMYA, BMP #### [facility] ([id number]) [address] [place] [address] 61881 Sodium [Moles/Vol] 138 mmol/L Normal 134-146 [facility] Comment on above: Performed By: #### C SOWMYA, BMP #### [facility] ([id number]) [address] [place] [address] 32934 Urea nitrogen [Mass/Vol] 21 mg/dL Normal 5-27 [facility] Comment on above: Performed By: #### C SOWMYA, BMP #### [facility] ([id number]) [address] [place] [address] 79632 CBC AND AUTO DIFFon 03-18-20 24 ABSOLUTE BASOPHIL 0.1 X10E9/L Normal 0.0-0.2 [facility] Comment on above: Performed By: #### C SOWMYA, BMP #### [facility] ([id number]) [address] [place] [address] 54861 ABSOLUTE NEUTROPHIL 4.5 X10E9/L Normal 1.5-6.6 [facility] Comment on above: Performed By: #### C SOWMYA, BMP #### [facility] ([id number]) [address] [place] [address] 61613 Basophils/100 WBC (Bld) 0.7 % Normal [facility] Comment on above: Performed By: #### C SOWMYA, BMP #### [facility] ([id number]) [address] [place] [address] 76313 Eosinophils (Bld) [#/Vol] 0.4 10*3/uL Normal 0.0-0.4 [facility] Comment on above: Performed By: #### C SOWMYA, BMP #### [facility] ([id number]) [address] [place] [address] 74654 Eosinophils/100 WBC (Bld) 4.1 % Normal [facility] Comment on above: Performed By: #### C SOWMYA, BMP #### [facility] ([id number]) [address] [place] [address] 27558 Erythrocyte distribution width (RBC) [Ratio] 18.8 % High 11.5-15.0 [facility] Comment on above: Performed By: #### C SOWMYA, BMP #### [facility] ([id number]) [address] [place] [address] 00095 Hematocrit (Bld) [Volume fraction] 28.0 % Low 35-47 [facility] Comment on above: Performed By: #### C SOWMYA, BMP #### [facility] ([id number]) [address] [place] [address] 02262 Hemoglobin (Bld) [Mass/Vol] 9.1 g/dL Low 11.7-15.5 [facility] Comment on above: Performed By: #### C SOWMYA, BMP #### [facility] ([id number]) [address] [place] [address] 79500 Lymphocytes (Bld) [#/Vol] 2.9 10*3/uL Normal 1.0-3.5 [facility] Comment on above: Performed By: #### C SOWMYA, BMP #### [facility] ([id number]) [address] [place] [address] 21671 Lymphocytes/100 WBC (Bld) 33.2 % Normal [facility] Comment on above: Performed By: #### C SOWMYA, BMP #### [facility] ([id number]) [address] [place] [address] 62237 MCH (RBC) [Entitic mass] 24.4 pg Low 27-34 [facility] Comment on above: Performed By: #### C SOWMYA, BMP #### [facility] ([id number]) [address] [place] [address] 21261 MCHC (RBC) [Mass/Vol] 32.3 g/dL Normal 32-36 [facility] Comment on above: Performed By: #### C SOWMYA, BMP #### [facility] ([id number]) [address] [place] [address] 47066 MCV (RBC) [Entitic vol] 76 fL Low 80-100 [facility] Comment on above: Performed By: #### C SOWMYA, BMP #### [facility] ([id number]) [address] [place] [address] 21726 Monocytes (Bld) [#/Vol] 0.8 10*3/uL Normal 0-0.9 [facility] Comment on above: Performed By: #### C SOWMYA, BMP #### [facility] ([id number]) [address] [place] [address] 52829 Monocytes/100 WBC (Bld) 9.4 % Normal [facility] Comment on above: Performed By: #### C SOWMYA, BMP #### [facility] ([id number]) [address] [place] [address] 10525 Neutrophils/100 WBC (Bld) 52.6 % Normal [facility] Comment on above: Performed By: #### C SOWMYA, BMP #### [facility] ([id number]) [address] [place] [address] 69851 Platelet mean volume (Bld) [Entitic vol] 6.8 fL Low 7-12 [facility] Comment on above: Performed By: #### C SOWMYA, BMP #### [facility] ([id number]) [address] [place] [address] 93522 Platelets (Bld) [#/Vol] 405 10*3/uL Normal 150-450 [facility] Comment on above: Performed By: #### Timmy DENG, BMP #### [facility] ([id number]) [address] [place] [address] 82298 RBC COUNT 3.71 X10E12/L Low 3.80-5.20 [facility] Comment on above: Performed By: #### Timmy DENG, BMP #### [facility] ([id number]) [address] [place] [address] 99552 WBC (Bld) [#/Vol] 8.6 10*3/uL Normal 4.0-11.0 [facility] Comment on above: Performed By: #### Timmy DENG, BMP #### [facility] ([id number]) [address] [place] [address] 49095 BLOOD UREA NITROGENon 2023 Urea nitrogen [Mass/Vol] 14 mg/dL Normal 5-27 [facility] Comment on above: Performed By: #### Timmy DENG, BMP #### [facility] ([id number]) [address] [place] [address] 57210 CBC AND AUTO DIFFon 03-11-20 24 ABSOLUTE BASOPHIL 0.1 X10E9/L Normal 0.0-0.2 [facility] Comment on above: Performed By: #### Timmy DENG, BMP #### [facility] ([id number]) [address] [place] [address] 47801 ABSOLUTE NEUTROPHIL 6.8 X10E9/L High 1.5-6.6 [facility] Comment on above: Performed By: #### C SOWMYA, BMP #### [facility] ([id number]) [address] [place] [address] 17407 Basophils/100 WBC (Bld) 0.6 % Normal [facility] Comment on above: Performed By: #### C SOWMYA, BMP #### [facility] ([id number]) [address] [place] [address] 43047 Eosinophils (Bld) [#/Vol] 0.4 10*3/uL Normal 0.0-0.4 [facility] Comment on above: Performed By: #### C SOWMYA, BMP #### [facility] ([id number]) [address] [place] [address] 36236 Eosinophils/100 WBC (Bld) 3.7 % Normal [facility] Comment on above: Performed By: #### C SOWMYA, BMP #### [facility] ([id number]) [address] [place] [address] 90573 Erythrocyte distribution width (RBC) [Ratio] 18.8 % High 11.5-15.0 [facility] Comment on above: Performed By: #### C SOWMYA, BMP #### [facility] ([id number]) [address] [place] [address] 41324 Hematocrit (Bld) [Volume fraction] 27.4 % Low 35-47 [facility] Comment on above: Performed By: #### C SOWMYA, BMP #### [facility] ([id number]) [address] [place] [address] 64070 Hemoglobin (Bld) [Mass/Vol] 8.8 g/dL Low 11.7-15.5 [facility] Comment on above: Performed By: #### C SOWMYA, BMP #### [facility] ([id number]) [address] [place] [address] 81651 Lymphocytes (Bld) [#/Vol] 3.3 10*3/uL Normal 1.0-3.5 [facility] Comment on above: Performed By: #### C SOWMYA, BMP #### [facility] ([id number]) [address] [place] [address] 56131 Lymphocytes/100 WBC (Bld) 27.7 % Normal [facility] Comment on above: Performed By: #### C SOWMYA, BMP #### [facility] ([id number]) [address] [place] [address] 10586 MCH (RBC) [Entitic mass] 24.7 pg Low 27-34 [facility] Comment on above: Performed By: #### C SOWMYA, BMP #### [facility] ([id number]) [address] [place] [address] 92648 MCHC (RBC) [Mass/Vol] 32.3 g/dL Normal 32-36 [facility] Comment on above: Performed By: #### C SOWMYA, BMP #### [facility] ([id number]) [address] [place] [address] 09147 MCV (RBC) [Entitic vol] 77 fL Low 80-100 [facility] Comment on above: Performed By: #### C SOWMYA, BMP #### [facility] ([id number]) [address] [place] [address] 31024 Monocytes (Bld) [#/Vol] 1.2 10*3/uL High 0-0.9 [facility] Comment on above: Performed By: #### C SOWMYA, BMP #### [facility] ([id number]) [address] [place] [address] 44213 Monocytes/100 WBC (Bld) 10.4 % Normal [facility] Comment on above: Performed By: #### C SOWMYA, BMP #### [facility] ([id number]) [address] [place] [address] 35780 Neutrophils/100 WBC (Bld) 57.6 % Normal [facility] Comment on above: Performed By: #### C SOWMYA, BMP #### [facility] ([id number]) [address] [place] [address] 02751 Platelet mean volume (Bld) [Entitic vol] 7.3 fL Normal 7-12 [facility] Comment on above: Performed By: #### Timmy DENG, BMP #### [facility] ([id number]) [address] [place] [address] 77429 Platelets (Bld) [#/Vol] 255 10*3/uL Normal 150-450 [facility] Comment on above: Performed By: #### C SOWMYA, BMP #### [facility] ([id number]) [address] [place] [address] 52766 RBC COUNT 3.58 X10E12/L Low 3.80-5.20 [facility] Comment on above: Performed By: #### C SOWMYA, BMP #### [facility] ([id number]) [address] [place] [address] 15470 WBC (Bld) [#/Vol] 11.8 10*3/uL High 4.0-11.0 [facility] Comment on above: Performed By: #### C SOWMYA, BMP #### [facility] ([id number]) [address] [place] [address] 22184 CREATININEon 03-11-2024 Creatinine [Mass/Vol] 1.09 mg/dL High 0.40-1.00 [facility] Comment on above: Result Comment: METH OD TRACEABLE TO IDMS STANDARD Performed By: #### C SOWMYA, BMP #### [facility] ([id number]) [address] [place] [address] 82460 GFR/1.73 sq M.predicted among non-blacks MDRD (S/P/Bld) [Vol rate/Area] 52 mL/min/{1.73_m2} Low >59 [facility] Comment on above: Result Comment: Reported eGFR is based on the CKD-EPI 2020 equation that does not use a race coefficient. Performed By: #### C BCA, BMP #### [facility] ([id number]) [address] [place] [address] 28868 ELECTROLYTESon 03-11-2024 Anion gap [Moles/Vol] 7 mmol/L Normal -15 [facility] Comment on above: Performed By: #### E LEC, 3094-0, RN PALLIATIVE, CBCA #### [facility] ([id number]) [address] [place] [address] 66482 Chloride [Moles/Vol] 106 mmol/L Normal 98-109 [facility] Comment on above: Performed By: #### E LEC, 3094-0, RN PALLIATIVE, CBCA #### [facility] ([id number]) [address] [place] [address] 26096 CO2 [Moles/Vol] 27 mmol/L Normal 22-32 [facility] Comment on above: Performed By: #### E LEC, 3094-0, RN PALLIATIVE, CBCA #### [facility] ([id number]) [address] [place] [address] 68116 Potassium [Moles/Vol] 4.2 mmol/L Normal 3.5-5.0 [facility] Comment on above: Performed By: #### E LEC, 3094-0, RN PALLIATIVE, CBCA #### [facility] ([id number]) [address] [place] [address] 59518 Sodium [Moles/Vol] 140 mmol/L Normal 134-146 [facility] Comment on above: Performed By: #### E LEC, 3094-0, RN PALLIATIVE, CBCA #### [facility] ([id number]) [address] [place] [address] 83130 CBC AND AUTO DIFFon 03-05-20 24 ABSOLUTE BASOPHIL 0.1 X10E9/L Normal 0.0-0.2 [facility] Comment on above: Performed By: #### C BCA #### [facility] ([id number]) [address] [place] [address] 46665 #### 47090-9 #### [facility] ([id number]) [address] [place] [address], [address] [place] [address] ABSOLUTE NEUTROPHIL 6.2 X10E9/L Normal 1.5-6.6 [facility] Comment on above: Performed By: #### C BCA #### [facility] ([id number]) [address] [place] [address] 44487 #### 50258-6 #### [facility] ([id number]) [address] [place] [address], [address] [place] [address] Basophils/100 WBC (Bld) 0.6 % Normal [facility] Comment on above: Performed By: #### C BCA #### [facility] ([id number]) [address] [place] [address] 74130 #### 21762-7 #### [facility] ([id number]) [address] [place] [address], [address] [place] [address] Eosinophils (Bld) [#/Vol] 0.3 10*3/uL Normal 0.0-0.4 [facility] Comment on above: Performed By: #### C BCA #### [facility] ([id number]) [address] [place] [address] 40321 #### 73479-7 #### [facility] ([id number]) [address], [address] [place] [address] Eosinophils/100 WBC (Bld) 2.4 % Normal [facility] Comment on above: Performed By: #### C BCA #### [facility] ([id number]) [address] [place] [address] 52853 #### 73208-7 #### [facility] ([id number]) [address], [address] [place] [address] Erythrocyte distribution width (RBC) [Ratio] 18.9 % High 11.5-15.0 [facility] Comment on above: Performed By: #### C BCA #### [facility] ([id number]) [address] [place] [address] 40701 #### 56599-8 #### [facility] ([id number]) [address], [address] [place] [address] Hematocrit (Bld) [Volume fraction] 30.3 % Low 35-47 [facility] Comment on above: Performed By: #### C BCA #### [facility] ([id number]) [address] [place] [address] 45967 #### 06834-9 #### [facility] ([id number]) [address], [address] [place] [address] Hemoglobin (Bld) [Mass/Vol] 9.7 g/dL Low 11.7-15.5 [facility] Comment on above: Performed By: #### C BCA #### [facility] ([id number]) [address] [place] [address] 32824 #### 25960-1 #### [facility] ([id number]) [address], [address] [place] [address] Lymphocytes (Bld) [#/Vol] 3.8 10*3/uL High 1.0-3.5 [facility] Comment on above: Performed By: #### C BCA #### [facility] ([id number]) [address] [place] [address] 37567 #### 37865-1 #### [facility] ([id number]) [address], [address] [place] [address] Lymphocytes/100 WBC (Bld) 32.9 % Normal [facility] Comment on above: Performed By: #### C BCA #### [facility] ([id number]) [address] [place] [address] 94775 #### 72362-5 #### [facility] ([id number]) [address], [address] [place] [address] MCH (RBC) [Entitic mass] 24.6 pg Low 27-34 [facility] Comment on above: Performed By: #### C BCA #### [facility] ([id number]) [address] [place] [address] 01175 #### 25593-0 #### [facility] ([id number]) [address], [address] [place] [address] MCHC (RBC) [Mass/Vol] 32.1 g/dL Normal 32-36 [facility] Comment on above: Performed By: #### C BCA #### [facility] ([id number]) [address] [place] [address] 10485 #### 94474-5 #### [facility] ([id number]) [address], [address] [place] [address] MCV (RBC) [Entitic vol] 77 fL Low 80-100 [facility] Comment on above: Performed By: #### C BCA #### [facility] ([id number]) [address] [place] [address] 75329 #### 32479-7 #### [facility] ([id number]) [address], [address] [place] [address] Monocytes (Bld) [#/Vol] 1.3 10*3/uL High 0-0.9 [facility] Comment on above: Performed By: #### C BCA #### [facility] ([id number]) [address] [place] [address] 68807 #### 07663-9 #### [facility] ([id number]) [address], [address] [place] [address] Monocytes/100 WBC (Bld) 11.0 % Normal [facility] Comment on above: Performed By: #### C BCA #### [facility] ([id number]) [address] [place] [address] 91099 #### 25130-9 #### [facility] ([id number]) [address], [address] [place] [address] Neutrophils/100 WBC (Bld) 53.1 % Normal [facility] Comment on above: Performed By: #### C BCA #### [facility] ([id number]) [address] [place] [address] 69692 #### 23573-6 #### [facility] ([id number]) [address], [address] [place] [address] Platelet mean volume (Bld) [Entitic vol] 7.5 fL Normal 7-12 [facility] Comment on above: Performed By: #### C BCA #### [facility] ([id number]) [address] [place] [address] 77704 #### 27529-1 #### [facility] ([id number]) [address], [address] [place] [address] Platelets (Bld) [#/Vol] 320 10*3/uL Normal 150-450 [facility] Comment on above: Performed By: #### C BCA #### [facility] ([id number]) [address] [place] [address] 38575 #### 80790-2 #### [facility] ([id number]) [address] [facility] [address] [place] [address] RBC COUNT 3.96 X10E12/L Normal 3.80-5.20 [facility] Comment on above: Performed By: #### C BCA #### [facility] ([id number]) [address] [place] [address] 90906 #### 29865-5 #### [facility] ([id number]) [address] [facility] [address] [place] [address] WBC (Bld) [#/Vol] 11.7 10*3/uL High 4.0-11.0 [facility] Comment on above: Performed By: #### C BCA #### [facility] ([id number]) [address] [place] [address] 21812 #### 65769-7 #### [facility] ([id number]) [address] [facility] [address] [place] [address] ESR Photometric method (Bld) [Velocity]on 03-05-2024 ESR, ERYTHROCYTE SEDIMENTATION RATE 43 mm/h High 0-30 [facility] Comment on above: Performed By: #### C BCA #### [facility] ([id number]) [address] [place] [address] #### [id number] #### [facility] ([id number]) [address] [facility] [address] [place] [address] FL SWALLOW MOTILITY FUNCTION on 03-04-2024 FL [...] Dowell MD on 03/04/2024 10:58 AM Normal [facility] URINALYSISon 03-03-2024 Bilirubin Ql (U) Negative Normal NEG [facility] Comment on above: Performed By: #### U A #### [facility] ([id number]) [address] [place] [address] 13189 BLOOD/HGB Negative Normal NEG [facility] Comment on above: Performed By: #### U A #### [facility] ([id number]) [address] [place] [address] 83980 Color (U) YELLOW Normal YELLOW [facility] Comment on above: Performed By: #### U A #### [facility] ([id number]) [address] [place] [address] 77883 Glucose Ql (U) Negative Normal NEG [facility] Comment on above: Performed By: #### U A #### [facility] ([id number]) [address] [place] [address] 21264 Ketones Ql (U) Negative Normal NEG [facility] Comment on above: Performed By: #### U A #### [facility] ([id number]) [address] [place] [address] 74950 Leukocyte esterase Test strip Ql (U) Negative Normal NEG [facility] Comment on above: Performed By: #### U A #### [facility] ([id number]) [address] [place] [address] 48558 Nitrite Ql (U) Negative Normal NEG [facility] Comment on above: Performed By: #### U A #### [facility] ([id number]) [address] [place] [address] 25745 pH (U) 6.0 [pH] Normal 5.0-8.5 [facility] Comment on above: Performed By: #### U A #### [facility] ([id number]) [address] [place] [address] 55723 Protein Ql (U) Negative Normal NEG [facility] Comment on above: Performed By: #### U A #### [facility] ([id number]) [address] [place] [address] 98414 Specific gravity (U) [Rel density] 1.020 Normal 1.003-1.[address] [place] [address] Comment on above: Performed By: #### U A #### [facility] ([id number]) [address] [place] [address] [place] [address] TURBIDITY CLEAR Normal CLEAR [facility] Comment on above: Performed By: #### U A #### [facility] ([id number]) [address] [place] [address] 99993 Urobilinogen Qn (U) 0.2 {Jose'U}/dL Normal <1.1 [facility] Comment on above: Performed By: #### U A #### [facility] ([id number]) [address] [place] [address] 36[address] URINE CULTUREon 03-03-2024 Bacteria identified Cx Nom (U) CULTURE RESULTS NO GROWTH AT <1000 CFU/mL Normal [facility] Comment on above: Performed By: #### 6 30-4 #### [facility] ([id number]) [address] [facility] [place] [address] BASIC METABOLIC PANLon 03-02 Anion gap [Moles/Vol] 9 mmol/L Normal 5-15 [facility] Comment on above: Performed By: #### C BCA, BMP #### [facility] ([id number]) [address] [place] [address] 29367 Calcium [Mass/Vol] 8.4 mg/dL Low 8.5-10.5 [facility] Comment on above: Performed By: #### C BCA, BMP #### [facility] ([id number]) [address] [place] [address] 00380 Chloride [Moles/Vol] 106 mmol/L Normal 98-109 [facility] Comment on above: Performed By: #### C BCA, BMP #### [facility] ([id number]) [address] [place] [address] 68240 CO2 [Moles/Vol] 27 mmol/L Normal 22-32 [facility] Comment on above: Performed By: #### C BCA, BMP #### [facility] ([id number]) [address] [place] [address] 73744 Creatinine [Mass/Vol] 1.13 mg/dL High 0.40-1.00 [facility] Comment on above: Result Comment: METH OD TRACEABLE TO IDMS STANDARD Performed By: #### C BCA, BMP #### [facility] ([id number]) [address] [place] [address] 58275 GFR/1.73 sq M.predicted among non-blacks MDRD (S/P/Bld) [Vol rate/Area] 50 mL/min/{1.73_m2} Low >59 [facility] Comment on above: Result Comment: Reported eGFR is based on the CKD-EPI 2020 equation that does not use a race coefficient. Performed By: #### C SOWMYA, BMP #### [facility] ([id number]) [address] [place] [address] 58484 Glucose [Mass/Vol] 106 mg/dL High 65-99 [facility] Comment on above: Performed By: #### C SOWMYA, BMP #### [facility] ([id number]) [address] [place] [address] 99041 Potassium [Moles/Vol] 3.4 mmol/L Low 3.5-5.0 [facility] Comment on above: Performed By: #### C SOWMYA, BMP #### [facility] ([id number]) [address] [place] [address] 10910 Sodium [Moles/Vol] 142 mmol/L Normal 134-146 [facility] Comment on above: Performed By: #### C SOWMYA, BMP #### [facility] ([id number]) [address] [place] [address] 12874 Urea nitrogen [Mass/Vol] 35 mg/dL High 5-27 [facility] Comment on above: Performed By: #### C SOWMYA, BMP #### [facility] ([id number]) [address] [place] [address] 03448 CBC AND AUTO DIFFon 05-06 24 ABSOLUTE BASOPHIL 0.1 X10E9/L Normal 0.0-0.2 [facility] Comment on above: Performed By: #### C SOWMYA, BMP #### [facility] ([id number]) [address] [place] [address] 94300 ABSOLUTE NEUTROPHIL 7.0 X10E9/L High 1.5-6.6 [facility] Comment on above: Performed By: #### C SOWMYA, BMP #### [facility] ([id number]) [address] [place] [address] 76423 Basophils/100 WBC (Bld) 0.6 % Normal [facility] Comment on above: Performed By: #### C SOWMYA, BMP #### [facility] ([id number]) [address] [place] [address] 26950 Eosinophils (Bld) [#/Vol] 0.1 10*3/uL Normal 0.0-0.4 [facility] Comment on above: Performed By: #### C SOWMYA, BMP #### [facility] ([id number]) [address] [place] [address] 43462 Eosinophils/100 WBC (Bld) 0.5 % Normal [facility] Comment on above: Performed By: #### C SOWMYA, BMP #### [facility] ([id number]) [address] [place] [address] 42136 Erythrocyte distribution width (RBC) [Ratio] 18.2 % High 11.5-15.0 [facility] Comment on above: Performed By: #### C SOWMYA, BMP #### [facility] ([id number]) [address] [place] [address] 78261 Hematocrit (Bld) [Volume fraction] 30.8 % Low 35-47 [facility] Comment on above: Performed By: #### C SOWMYA, BMP #### [facility] ([id number]) [address] [place] [address] 71496 Hemoglobin (Bld) [Mass/Vol] 10.0 g/dL Low 11.7-15.5 [facility] Comment on above: Performed By: #### C SOWMYA, BMP #### [facility] ([id number]) [address] [place] [address] 85128 Lymphocytes (Bld) [#/Vol] 4.1 10*3/uL High 1.0-3.5 [facility] Comment on above: Performed By: #### C SOWMYA, BMP #### [facility] ([id number]) [address] [place] [address] 61841 Lymphocytes/100 WBC (Bld) 32.1 % Normal [facility] Comment on above: Performed By: #### C SOWMYA, BMP #### [facility] ([id number]) [address] [place] [address] 28497 MCH (RBC) [Entitic mass] 24.9 pg Low 27-34 [facility] Comment on above: Performed By: #### C SOWMYA, BMP #### [facility] ([id number]) [address] [place] [address] 66898 MCHC (RBC) [Mass/Vol] 32.3 g/dL Normal 32-36 [facility] Comment on above: Performed By: #### C SOWMYA, BMP #### [facility] ([id number]) [address] [place] [address] 60034 MCV (RBC) [Entitic vol] 77 fL Low 80-100 [facility] Comment on above: Performed By: #### C SOWMYA, BMP #### [facility] ([id number]) [address] [place] [address] 81871 Monocytes (Bld) [#/Vol] 1.5 10*3/uL High 0-0.9 [facility] Comment on above: Performed By: #### C SOWMYA, BMP #### [facility] ([id number]) [address] [place] [address] 95225 Monocytes/100 WBC (Bld) 11.5 % Normal [facility] Comment on above: Performed By: #### C SOWMYA, BMP #### [facility] ([id number]) [address] [place] [address] 73310 Neutrophils/100 WBC (Bld) 55.3 % Normal [facility] Comment on above: Performed By: #### C SOWMYA, BMP #### [facility] ([id number]) [address] [place] [address] 20922 Platelet mean volume (Bld) [Entitic vol] 7.4 fL Normal 7-12 [facility] Comment on above: Performed By: #### C SOWMYA, BMP #### [facility] ([id number]) [address] [place] [address] 78609 Platelets (Bld) [#/Vol] 360 10*3/uL Normal 150-450 [facility] Comment on above: Performed By: #### C SOWMYA, BMP #### [facility] ([id number]) [address] [place] [address] 56240 RBC COUNT 4.00 X10E12/L Normal 3.80-5.20 [facility] Comment on above: Performed By: #### C SOWMYA, BMP #### [facility] ([id number]) [address] [place] [address] 81890 WBC (Bld) [#/Vol] 12.7 10*3/uL High 4.0-11.0 [facility] Comment on above: Performed By: #### C SOWMYA, BMP #### [facility] ([id number]) [address] [place] [address] 99811 BASIC METABOLIC PANLon 02-26 Anion gap [Moles/Vol] 8 mmol/L Normal 5-15 [facility] Comment on above: Performed By: #### C SOWMYA, BMP #### [facility] ([id number]) [address] [place] [address] 53011 Calcium [Mass/Vol] 8.7 mg/dL Normal 8.5-10.5 [facility] Comment on above: Performed By: #### C SOWMYA, BMP #### [facility] ([id number]) [address] [place] [address] 88990 Chloride [Moles/Vol] 97 mmol/L Low 98-109 [facility] Comment on above: Performed By: #### C SOWMYA, BMP #### [facility] ([id number]) [address] [place] [address] 00341 CO2 [Moles/Vol] 29 mmol/L Normal 22-32 [facility] Comment on above: Performed By: #### C SOWMYA, BMP #### [facility] ([id number]) [address] [place] [address] 04905 Creatinine [Mass/Vol] 1.22 mg/dL High 0.40-1.00 [facility] Comment on above: Result Comment: METH OD TRACEABLE TO IDMS STANDARD Performed By: #### C SOWMYA, BMP #### [facility] ([id number]) [address] [place] [address] 23798 GFR/1.73 sq M.predicted among non-blacks MDRD (S/P/Bld) [Vol rate/Area] 45 mL/min/{1.73_m2} Low >59 [facility] Comment on above: Result Comment: Reported eGFR is based on the CKD-EPI 2020 equation that does not use a race coefficient. Performed By: #### C SOWMYA, BMP #### [facility] ([id number]) [address] [place] [address] 77713 Glucose [Mass/Vol] 123 mg/dL High 65-99 [facility] Comment on above: Performed By: #### C SOWMYA, BMP #### [facility] ([id number]) [address] [place] [address] 60979 Potassium [Moles/Vol] 4.0 mmol/L Normal 3.5-5.0 [facility] Comment on above: Performed By: #### C SOWMYA, BMP #### [facility] ([id number]) [address] [place] [address] 65295 Sodium [Moles/Vol] 134 mmol/L Normal 134-146 [facility] Comment on above: Performed By: #### C SOWMYA, BMP #### [facility] ([id number]) [address] [place] [address] 23878 Urea nitrogen [Mass/Vol] 35 mg/dL High 5-27 [facility] Comment on above: Performed By: #### C SOWMYA, BMP #### [facility] ([id number]) [address] [place] [address] 47834 CBC AND AUTO DIFFon 02-27-20 24 Eosinophils (Bld) [#/Vol] 0.2 10*3/uL Normal 0.0-0.4 [facility] Comment on above: Performed By: #### C SOWMYA, BMP #### [facility] ([id number]) [address] [place] [address] 86740 Eosinophils/100 WBC (Bld) 1.0 % Normal [facility] Comment on above: Performed By: #### C SOWMYA, BMP #### [facility] ([id number]) [address] [place] [address] 16926 Erythrocyte distribution width (RBC) [Ratio] 18.2 % High 11.5-15.0 [facility] Comment on above: Performed By: #### C SOWMYA, BMP #### [facility] ([id number]) [address] [place] [address] 20397 Hematocrit (Bld) [Volume fraction] 35.1 % Normal 35-47 [facility] Comment on above: Performed By: #### C SOWMYA, BMP #### [facility] ([id number]) [address] [place] [address] 35351 Hemoglobin (Bld) [Mass/Vol] 11.4 g/dL Low 11.7-15.5 [facility] Comment on above: Performed By: #### C BCA, BMP #### [facility] ([id number]) [address] [place] [address] 77416 Lymphocytes (Bld) [#/Vol] 4.0 10*3/uL High 1.0-3.5 [facility] Comment on above: Performed By: #### C SOWMYA, BMP #### [facility] ([id number]) [address] [place] [address] 23044 Lymphocytes/100 WBC (Bld) 21.0 % Normal [facility] Comment on above: Performed By: #### C SOWMYA, BMP #### [facility] ([id number]) [address] [place] [address] 74974 MCH (RBC) [Entitic mass] 24.6 pg Low 27-34 [facility] Comment on above: Performed By: #### C SOWMYA, BMP #### [facility] ([id number]) [address] [place] [address] 30648 MCHC (RBC) [Mass/Vol] 32.5 g/dL Normal 32-36 [facility] Comment on above: Performed By: #### C SOWMYA, BMP #### [facility] ([id number]) [address] [place] [address] 57840 MCV (RBC) [Entitic vol] 76 fL Low 80-100 [facility] Comment on above: Performed By: #### C BCA, BMP #### [facility] ([id number]) [address] [place] [address] 18306 Monocytes (Bld) [#/Vol] 1.4 10*3/uL High 0-0.9 [facility] Comment on above: Performed By: #### C BCA, BMP #### [facility] ([id number]) [address] [place] [address] 36562 Monocytes/100 WBC (Bld) 7.6 % Normal [facility] Comment on above: Performed By: #### C BCA, BMP #### [facility] ([id number]) [address] [place] [address] 42176 MYELOCYTE 1.0 % Normal [facility] Comment on above: Performed By: #### C SOWMYA, BMP #### [facility] ([id number]) [address] [place] [address] 76299 Neutrophils (Bld) [#/Vol] 13.1 10*3/uL High 1.5-6.6 [facility] Comment on above: Performed By: #### C SOWMYA, BMP #### [facility] ([id number]) [address] [place] [address] 53647 Platelet mean volume (Bld) [Entitic vol] 7.2 fL Normal 7-12 [facility] Comment on above: Performed By: #### C SOWMYA, BMP #### [facility] ([id number]) [address] [place] [address] 81040 Platelets (Bld) [#/Vol] 398 10*3/uL Normal 150-450 [facility] Comment on above: Performed By: #### C SOWMYA, BMP #### [facility] ([id number]) [address] [place] [address] 93757 RBC COUNT 4.63 X10E12/L Normal 3.80-5.20 [facility] Comment on above: Performed By: #### C SOWMYA, BMP #### [facility] ([id number]) [address] [place] [address] 18582 SEG NEUTROPHIL 69.4 % Normal [facility] Comment on above: Performed By: #### C SOWMYA, BMP #### [facility] ([id number]) [address] [place] [address] 98408 WBC (Bld) [#/Vol] 18.9 10*3/uL High 4.0-11.0 [facility] Comment on above: Performed By: #### C SOWMYA, BMP #### [facility] ([id number]) [address] [facility] [place] [address] CBC AND AUTO DIFFon 02-25-20 24 Band form neutrophils/100 WBC (Bld) 1.0 % Normal [facility] Comment on above: Performed By: #### E LEC #### [facility] ([id number]) [address], [address] [place] [address] Erythrocyte distribution width (RBC) [Ratio] 18.4 % High 11.5-15.0 [facility] Comment on above: Performed By: #### E LEC #### [facility] ([id number]) [address], [address] [place] [address] Hematocrit (Bld) [Volume fraction] 36.0 % Normal 35-47 [facility] Comment on above: Performed By: #### E LEC #### [facility] ([id number]) [address], [address] [place] [address] Hemoglobin (Bld) [Mass/Vol] 11.6 g/dL Low 11.7-15.5 [facility] Comment on above: Performed By: #### E LEC #### [facility] ([id number]) [address], [address] [place] [address] HYPOCHROMIA 1+ Abnormal NONE [facility] Comment on above: Performed By: #### E LEC #### [facility] ([id number]) [address] [place] [address] Lymphocytes (Bld) [#/Vol] 4.6 10*3/uL High 1.0-3.5 [facility] Comment on above: Performed By: #### E LEC #### [facility] ([id number]) [address] [place] [address] Lymphocytes/100 WBC (Bld) 28.0 % Normal [facility] Comment on above: Performed By: #### E LEC #### [facility] ([id number]) [address], [address] [place] [address] MCH (RBC) [Entitic mass] 24.9 pg Low 27-34 [facility] Comment on above: Performed By: #### E LEC #### [facility] ([id number]) [address], [address] [place] [address] MCHC (RBC) [Mass/Vol] 32.3 g/dL Normal 32-36 [facility] Comment on above: Performed By: #### E LEC #### [facility] ([id number]) [address] [place] [address] MCV (RBC) [Entitic vol] 77 fL Low 80-100 [facility] Comment on above: Performed By: #### E LEC #### [facility] ([id number]) [address] [place] [address] Monocytes (Bld) [#/Vol] 1.3 10*3/uL High 0-0.9 [facility] Comment on above: Performed By: #### E LEC #### [facility] ([id number]) [address] [place] [address] Monocytes/100 WBC (Bld) 8.0 % Normal [facility] Comment on above: Performed By: #### E LEC #### [facility] ([id number]) [address] [place] [address] MYELOCYTE 1.0 % Normal [facility] Comment on above: Performed By: #### E LEC #### [facility] ([id number]) [address], [address] [place] [address] Neutrophils (Bld) [#/Vol] 10.2 10*3/uL High 1.5-6.6 [facility] Comment on above: Performed By: #### E LEC #### [facility] ([id number]) [address] [place] [address] Platelet mean volume (Bld) [Entitic vol] 6.8 fL Low 7-12 [facility] Comment on above: Performed By: #### E LEC #### [facility] ([id number]) [address], [address] [place] [address] Platelets (Bld) [#/Vol] 480 10*3/uL High 150-450 [facility] Comment on above: Performed By: #### E LEC #### [facility] ([id number]) [address] [place] [address] RBC COUNT 4.66 X10E12/L Normal 3.80-5.20 [facility] Comment on above: Performed By: #### E LEC #### [facility] ([id number]) [address] [place] [address] SEG NEUTROPHIL 62.0 % Normal [facility] Comment on above: Performed By: #### E LEC #### [facility] ([id number]) [address], [address] [place] [address] WBC (Bld) [#/Vol] 16.3 10*3/uL High 4.0-11.0 [facility] Comment on above: Performed By: #### E LEC #### [facility] ([id number]) [address], [address] [place] [address] COMPREHENSIVE METABOLIC PANE Harsha 02-25-2024 Albumin [Mass/Vol] 2.8 g/dL Low 3.2-5.3 [facility] Comment on above: Performed By: #### E LEC #### [facility] ([id number]) [address], [address] [place] [address] ALP [Catalytic activity/Vol] 61 U/L Normal 39-130 [facility] Comment on above: Performed By: #### E LEC #### [facility] ([id number]) [address], [address] [place] [address] ALT [Catalytic activity/Vol] 16 U/L Normal 0-31 [facility] Comment on above: Performed By: #### E LEC #### [facility] ([id number]) [address], [address] [place] [address] Anion gap [Moles/Vol] 8 mmol/L Normal 5-15 [facility] Comment on above: Performed By: #### E LEC #### [facility] ([id number]) [address], [address] [place] [address] AST [Catalytic activity/Vol] 20 U/L Normal 0-41 [facility] Comment on above: Performed By: #### E LEC #### [facility] ([id number]) [address] [place] [address] Bilirubin [Mass/Vol] 0.3 mg/dL Normal 0.3-1.2 [facility] Comment on above: Performed By: #### E LEC #### [facility] ([id number]) [address] [place] [address] Calcium [Mass/Vol] 9.1 mg/dL Normal 8.5-10.5 [facility] Comment on above: Performed By: #### E LEC #### [facility] ([id number]) [address], [address] [place] [address] Chloride [Moles/Vol] 101 mmol/L Normal 98-109 [facility] Comment on above: Performed By: #### E LEC #### [facility] ([id number]) [address] [place] [address] CO2 [Moles/Vol] 29 mmol/L Normal 22-32 [facility] Comment on above: Performed By: #### E LEC #### [facility] ([id number]) [address], [address] [place] [address] Creatinine [Mass/Vol] 1.16 mg/dL High 0.40-1.00 [facility] Comment on above: Result Comment: METH OD TRACEABLE TO IDMS STANDARD Performed By: #### E LEC #### [facility] ([id number]) [address] [place] [address] GFR/1.73 sq M.predicted among non-blacks MDRD (S/P/Bld) [Vol rate/Area] 48 mL/min/{1.73_m2} Low >59 [facility] Comment on above: Result Comment: Reported eGFR is based on the CKD-EPI 2020 equation that does not use a race coefficient. Performed By: #### E LEC #### [facility] ([id number]) [address], [address] [place] [address] Glucose [Mass/Vol] 73 mg/dL Normal 65-99 [facility] Comment on above: Performed By: #### E LEC #### [facility] ([id number]) [address], [address] [place] [address] Potassium [Moles/Vol] 5.0 mmol/L Normal 3.5-5.0 [facility] Comment on above: Performed By: #### E LEC #### [facility] ([id number]) [address] [place] [address] Protein [Mass/Vol] 6.2 g/dL Normal 6.0-8.0 [facility] Comment on above: Performed By: #### E LEC #### [facility] ([id number]) [address] [place] [address] Sodium [Moles/Vol] 138 mmol/L Normal 134-146 [facility] Comment on above: Performed By: #### E LEC #### [facility] ([id number]) [address] [place] [address] Urea nitrogen [Mass/Vol] 44 mg/dL High 5-27 [facility] Comment on above: Performed By: #### E LEC #### [facility] ([id number]) [address] [place] [address] Creatinine (U) [Mass/Vol]on 02-25-2024 URINE CREATININE,RDM 57.71 mg/dL Normal [facility] Comment on above: Performed By: #### E LEC #### [facility] ([id number]) [address] [place] [address] MAGNESIUMon 02-25-2024 Magnesium [Mass/Vol] 1.9 mg/dL Normal 1.8-2.6 [facility] Comment on above: Performed By: #### E LEC #### [facility] ([id number]) [address], [address] [place] [address] Osmolality (U) [Osmolality]o n 02-25-2024 URINE OSMOLALITY 631 mOsm/kg H2 Normal 300-1300 [facility] Comment on above: Performed By: #### E LEC #### [facility] ([id number]) [address] [place] [address] PHOSPHORUSon 02-25-2024 Phosphate [Mass/Vol] 5.9 mg/dL High 2.4-4.9 [facility] Comment on above: Result Comment: SPEC IMEN HEMOLYZED, RESULTS INCREASED SLIGHTLY HEMOLYZED Performed By: #### E LEC #### [facility] ([id number]) [address] [place] [address] Provider Letteron 02-25-2024 Provider Letter (Inserted Image. Sahra ble to display) February 25, 2024 GERA BROUGHT [address] [place] [id number] : 1945 Dear Gera Perdue , We [...] Sincerely, [facility] option #3 Normal [facility] URINE SODIUM,RANDOMon 2023 Sodium (U) [Moles/Vol] 119 mmol/L Normal [facility] Comment on above: Performed By: #### E LEC #### [facility] ([id number]) [facility], [address] [place] [id number] AFB CULTURE(CONCENTRATED)on 02-24-2024 Mycobacterium sp identified Org specific cx Nom (Unsp spec) SPECIMEN NOTES SPECIMEN 2 AFB SMEAR NO ACID FAST BACILLI (CONCENTRATED SMEAR) CULTURE RESULTS NO ACID FAST BACILLI ISOLATED IN 8 WEEKS Normal [facility] Comment on above: Performed By: #### E LEC #### [facility] ([id number]) [address] [facility], [address] [address] Mycobacterium sp identified Org specific cx Nom (Unsp spec) SPECIMEN NOTES SPECIMEN 1 AFB SMEAR NO ACID FAST BACILLI (CONCENTRATED SMEAR) CULTURE RESULTS NO ACID FAST BACILLI ISOLATED IN 8 WEEKS Normal [facility] Comment on above: Performed By: #### E LEC #### [facility] ([id number]) [address], [address] [place] [address] AND DIFFon 2023 BODY FLUID COMMENT Interpreta tion-- ------ Normal [facility] Comment on above: Result Comment: Refe rence values for this fluid type are undefined, as fluid accumulation is considered abnormal. Performed By: #### E LEC #### [facility] ([id number]) [address] [facility], [address] [place] [address] FLUID CLARITY HAZY Normal [facility] Comment on above: Performed By: #### E LEC #### [facility] ([id number]) [address], [address] [place] [address] FLUID COLOR COLORLESS Normal [facility] Comment on above: Performed By: #### E LEC #### [facility] ([id number]) [address], [address] [place] [address] FLUID LYMPHOCYTE 6 % Normal [facility] Comment on above: Performed By: #### E LEC #### [facility] ([id number]) [address] [facility], [address] [place] [address] FLUID NEUTROPHILS 69 % Normal [facility] Comment on above: Performed By: #### E LEC #### [facility] ([id number]) [address] [place] [address] 34 /uL Normal [facility] Comment on above: Performed By: #### E LEC #### [facility] ([id number]) [address], [address] [place] [address] FLUID SPECIMEN TYPE BRONCHOALVEOLAR LAVAGE Normal [facility] Comment on above: Result Comment: RIGH T LUNG, LOWER LOBE SPECIMEN 2 Performed By: #### E LEC #### [facility] ([id number]) [address], [address] [place] [address] MACROPHAGES 25 % Normal [facility] Comment on above: Performed By: #### E LEC #### [facility] ([id number]) [address], [address] [place] [address] 440 /uL Normal [facility] Comment on above: Performed By: #### E LEC #### [facility] ([id number]) [address], [address] [place] [address] CBC AND AUTO DIFFon 04-29-20 24 Erythrocyte distribution width (RBC) [Ratio] 18.3 % High 11.5-15.0 [facility] Comment on above: Performed By: #### E LEC #### [facility] ([id number]) [address], [address] [place] [address] Hematocrit (Bld) [Volume fraction] 34.7 % Low 35-47 [facility] Comment on above: Performed By: #### E LEC #### [facility] ([id number]) [address], [address] [place] [address] Hemoglobin (Bld) [Mass/Vol] 11.2 g/dL Low 11.7-15.5 [facility] Comment on above: Performed By: #### E LEC #### [facility] ([id number]) [address], [address] [place] [address] Lymphocytes (Bld) [#/Vol] 2.8 10*3/uL Normal 1.0-3.5 [facility] Comment on above: Performed By: #### E LEC #### [facility] ([id number]) [address], [address] [place] [address] Lymphocytes/100 WBC (Bld) 17.0 % Normal [facility] Comment on above: Performed By: #### E LEC #### [facility] ([id number]) [address], [address] [place] [address] MCH (RBC) [Entitic mass] 24.6 pg Low 27-34 [facility] Comment on above: Performed By: #### E LEC #### [facility] ([id number]) [address], [address] [place] [address] MCHC (RBC) [Mass/Vol] 32.1 g/dL Normal 32-36 [facility] Comment on above: Performed By: #### E LEC #### [facility] ([id number]) [address], [address] [place] [address] MCV (RBC) [Entitic vol] 77 fL Low 80-100 [facility] Comment on above: Performed By: #### E LEC #### [facility] ([id number]) [address], [address] [place] [address] Metamyelocytes/100 WBC (Bld) 1.0 % Normal [facility] Comment on above: Performed By: #### E LEC #### [facility] ([id number]) [address], [address] [place] [address] Monocytes (Bld) [#/Vol] 0.7 10*3/uL Normal 0-0.9 [facility] Comment on above: Performed By: #### E LEC #### [facility] ([id number]) [address], [address] [place] [address] Monocytes/100 WBC (Bld) 4.0 % Normal [facility] Comment on above: Performed By: #### E LEC #### [facility] ([id number]) [address], [address] [place] [address] Neutrophils (Bld) [#/Vol] 12.7 10*3/uL High 1.5-6.6 [facility] Comment on above: Performed By: #### E LEC #### [facility] ([id number]) [address], [address] [place] [address] Platelet mean volume (Bld) [Entitic vol] 6.7 fL Low 7-12 [facility] Comment on above: Performed By: #### E LEC #### [facility] ([id number]) [address], [address] [place] [address] Platelets (Bld) [#/Vol] 479 10*3/uL High 150-450 [facility] Comment on above: Performed By: #### E LEC #### [facility] ([id number]) [address], [address] [place] [address] RBC COUNT 4.54 X10E12/L Normal 3.80-5.20 [facility] Comment on above: Performed By: #### E LEC #### [facility] ([id number]) [address], [address] [place] [address] RBC morphology finding Nom (Bld) NORMAL Normal [facility] Comment on above: Performed By: #### E LEC #### [facility] ([id number]) [address], [address] [place] [address] SEG NEUTROPHIL 78.0 % Normal [facility] Comment on above: Performed By: #### E LEC #### [facility] ([id number]) [address], [address] [place] [address] WBC (Bld) [#/Vol] 16.4 10*3/uL High 4.0-11.0 [facility] Comment on above: Performed By: #### E LEC #### [facility] ([id number]) [address], [address] [place] [address] COMPREHENSIVE METABOLIC PANE Harsha 02-24-2024 Albumin [Mass/Vol] 2.8 g/dL Low 3.2-5.3 [facility] Comment on above: Performed By: #### E LEC #### [facility] ([id number]) [address], [address] [place] [address] ALP [Catalytic activity/Vol] 63 U/L Normal 39-130 [facility] Comment on above: Performed By: #### E LEC #### [facility] ([id number]) [address], [address] [place] [address] ALT [Catalytic activity/Vol] 11 U/L Normal 0-31 [facility] Comment on above: Performed By: #### E LEC #### [facility] [facility] ([id number]) [address], [address] [place] [address] Anion gap [Moles/Vol] 6 mmol/L Normal 5-15 [facility] Comment on above: Performed By: #### E LEC #### [facility] ([id number]) [address], [address] [place] [address] AST [Catalytic activity/Vol] 12 U/L Normal 0-41 [facility] Comment on above: Performed By: #### E LEC #### [facility] ([id number]) [address], [address] [place] [address] Bilirubin [Mass/Vol] 0.2 mg/dL Low 0.3-1.2 [facility] Comment on above: Performed By: #### E LEC #### [facility] ([id number]) [address], [address] [place] [address] Calcium [Mass/Vol] 9.1 mg/dL Normal 8.5-10.5 [facility] Comment on above: Performed By: #### E LEC #### [facility] ([id number]) [address], [address] [place] [address] Chloride [Moles/Vol] 101 mmol/L Normal 98-109 [facility] Comment on above: Performed By: #### E LEC #### [facility] ([id number]) [address], [address] [place] [address] CO2 [Moles/Vol] 31 mmol/L Normal 22-32 [facility] Comment on above: Performed By: #### E LEC #### [facility] ([id number]) [address], [address] [place] [address] Creatinine [Mass/Vol] 1.05 mg/dL High 0.40-1.00 [facility] Comment on above: Result Comment: METH OD TRACEABLE TO IDMS STANDARD Performed By: #### E LEC #### [facility] ([id number]) [address], [address] [place] [address] GFR/1.73 sq M.predicted among non-blacks MDRD (S/P/Bld) [Vol rate/Area] 54 mL/min/{1.73_m2} Low >59 [facility] Comment on above: Result Comment: Reported eGFR is based on the CKD-EPI 2020 equation that does not use a race coefficient. Performed By: #### E LEC #### [facility] ([id number]) [address], [address] [place] [address] Glucose [Mass/Vol] 91 mg/dL Normal 65-99 [facility] Comment on above: Performed By: #### E LEC #### [facility] ([id number]) [address] [facility] [facility] [place] [address] Potassium [Moles/Vol] 4.5 mmol/L Normal 3.5-5.0 [facility] Comment on above: Performed By: #### E LEC #### [facility] ([id number]) [address] [facility] [facility] [place] [address] Protein [Mass/Vol] 6.2 g/dL Normal 6.0-8.0 [facility] Comment on above: Performed By: #### E LEC #### [facility] ([id number]) [address], [address] [place] [address] Sodium [Moles/Vol] 138 mmol/L Normal 134-146 [facility] Comment on above: Performed By: #### E LEC #### [facility] ([id number]) [address], [address] [place] [address] Urea nitrogen [Mass/Vol] 33 mg/dL High 5-27 [facility] Comment on above: Performed By: #### E LEC #### [facility] ([id number]) [address] [place] [address], [address] [place] [address] Cytologyon 02-24-2024 Cytology Normal [facility] Comment on above: Result Comment: [facility] [address] [place] [address] Cytology Consultation Patient Name:LIDA PERDUEB:1945 (Age: 78)Gender:FTaken:4Reported:02/27/2024 16:56Physician(s):Elsa Quinonez MD ([phone])Copy To:Noe Huang [facility] #:[id number]. Rec. #:[id number]: #[id number] Final Cytologic Diagnosis 1. Right lower lobe, bronchial washing: No malignant cells identified. 2. Right lower lobe, bronchoalveolar lavage: No malignant cells identified. 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-principal network architect (M), Level 2 H&E, Non ACID FILLER ThinPrep 2: Right lower lobe, bronchoalveolar lavage Cell block for Non-principal network architect (M), Level 2 H&E, Non ACID FILLER ThinPrep Fee Code(s): 1; 90802, 45611 2; 73245, 69452 FUNGAL CULTUREon 02-24-2024 Fungus identified Cx Nom (Unsp spec) SPECIMEN NOTES SPECIMEN 2 FUNGAL SMEAR NO FUNGAL ELEMENTS SEEN ON CONCENTRATED SMEAR CULTURE RESULTS NO FUNGUS ISOLATED AFTER 4 WEEKS Normal [facility] Comment on above: Performed By: #### E LEC #### [facility] ([id number]) [address], [address] [place] [address] Fungus identified Cx Nom (Unsp spec) SPECIMEN NOTES SPECIMEN 1 FUNGAL SMEAR NO FUNGAL ELEMENTS SEEN ON CONCENTRATED SMEAR CULTURE RESULTS NO FUNGUS ISOLATED AFTER 4 WEEKS Normal [facility] Comment on above: Performed By: #### E LEC #### [facility] ([id number]) [address] [facility] [place] [address] LOWER RESPIRATORY CULTUREon 02-24-2024 Bacteria identified Respiratory culture Nom (Sput) SPECIMEN NOTES SPECIMEN 2 GRAM STAIN 1 to 9 WHITE BLOOD CELLS/LPF 1 to 9 SQUAMOUS EPITHELIAL CELLS/LPF 0 CILIATED EPITHELIAL CELLS/LPF NO ORGANISMS SEEN CULTURE RESULTS RARE NORMAL ORAL KIMBERLY Normal [facility] Comment on above: Performed By: #### E LEC #### [facility] ([id number]) [address] [facility], [address] [place] [address] Bacteria identified Respiratory culture Nom (Sput) SPECIMEN NOTES SPECIMEN 1 GRAM STAIN 1 to 9 WHITE BLOOD CELLS/LPF 1 to 9 SQUAMOUS EPITHELIAL CELLS/LPF 0 CILIATED EPITHELIAL CELLS/LPF NO ORGANISMS SEEN CULTURE RESULTS RARE NORMAL ORAL KIMBERLY Normal [facility] Comment on above: Performed By: #### E LEC #### [facility] ([id number]) [address], [address] [place] [address] M. pneumoniae DNA ELIZABETH+probe Ql (Unsp spec)on 02-24-2024 M PNEUMONIAE DNA PCR See Below Normal [facility] Comment on above: Result Comment: NOTE [...] developed and its performance characteristics determined by [facility]. It has not been cleared or approved by the [place] Food and Drug Administration. This test was performed in a CLIA certified laboratory and is intended for clinical purposes. Performed By: [facility] [address] [place] [address] [employer] Issuer: Eduardo Lindsay MD, PhD CLIA Number: [id number] SOURCE: Sputum Performed By: #### E LEC #### [facility] ([id number]) [address] [place] [address], [address] [place] [address] MAGNESIUMon 02-24-2024 Magnesium [Mass/Vol] 2.1 mg/dL Normal 1.8-2.6 [facility] Comment on above: Performed By: #### E LEC #### [facility] ([id number]) [address] [place] [address], [facility] [address] [place] [address] PHOSPHORUSon 02-24-2024 Phosphate [Mass/Vol] 4.6 mg/dL Normal 2.4-4.9 [facility] Comment on above: Performed By: #### E LEC #### [facility] ([id number]) [facility] [place] [address] Procalcitonin IA [Mass/Vol]o n 02-24-2024 PROCALCITONIN <0.05 Normal <0.05 [facility] Comment on above: Result Comment: NOTE <0.50 ng/mL - Low risk of severe sepsis and/or septic shock. <2.00 ng/mL - Recommend retesting within 6-24 hours. >2.00 ng/mL - High risk of sepsis and/or septic shock. Performed By: #### E LEC #### [facility] ([id number]) [facility], [address] [place] [address] CBC AND AUTO DIFFon 02-23-20 24 Band form neutrophils/100 WBC (Bld) 1.0 % Normal [facility] Comment on above: Performed By: #### E LEC #### [facility] ([id number]) [address], [facility] [address] [place] [address] Erythrocyte distribution width (RBC) [Ratio] 18.2 % High 11.5-15.0 [facility] Comment on above: Performed By: #### E LEC #### [facility] ([id number]) [address], [facility] [address] [place] [address] Hematocrit (Bld) [Volume fraction] 35.2 % Normal 35-47 [facility] Comment on above: Performed By: #### E LEC #### [facility] ([id number]) [address], [facility] [address] [place] [address] Hemoglobin (Bld) [Mass/Vol] 11.3 g/dL Low 11.7-15.5 [facility] Comment on above: Performed By: #### E LEC #### [facility] ([id number]) [address], [facility] [address] [place] [address] HYPOCHROMIA 2+ Abnormal NONE [facility] Comment on above: Performed By: #### E LEC #### [facility] ([id number]) [address], [facility] [address] [place] [address] Lymphocytes (Bld) [#/Vol] 2.6 10*3/uL Normal 1.0-3.5 [facility] Comment on above: Performed By: #### E LEC #### [facility] ([id number]) [address] [address] Lymphocytes/100 WBC (Bld) 16.0 % Normal [facility] Comment on above: Performed By: #### E LEC #### [facility] ([id number]) [address], [address] [place] [address] MCH (RBC) [Entitic mass] 24.8 pg Low 27-34 [facility] Comment on above: Performed By: #### E LEC #### [facility] ([id number]) [address], [address] [place] [address] MCHC (RBC) [Mass/Vol] 32.2 g/dL Normal 32-36 [facility] Comment on above: Performed By: #### E LEC #### [facility] ([id number]) [address], [address] [place] [address] MCV (RBC) [Entitic vol] 77 fL Low 80-100 [facility] Comment on above: Performed By: #### E LEC #### [facility] ([id number]) [address], [address] [place] [address] Monocytes (Bld) [#/Vol] 1.0 10*3/uL High 0-0.9 [facility] Comment on above: Performed By: #### E LEC #### [facility] ([id number]) [address], [address] [place] [address] Monocytes/100 WBC (Bld) 6.0 % Normal [facility] Comment on above: Performed By: #### E LEC #### [facility] ([id number]) [address], [address] [place] [address] MYELOCYTE 3.0 % Normal [facility] Comment on above: Performed By: #### E LEC #### [facility] ([id number]) [address], [address] [place] [address] Neutrophils (Bld) [#/Vol] 12.2 10*3/uL High 1.5-6.6 [facility] Comment on above: Performed By: #### E LEC #### [facility] ([id number]) [address], [address] [place] [address] Platelet mean volume (Bld) [Entitic vol] 6.7 fL Low 7-12 [facility] Comment on above: Performed By: #### E LEC #### [facility] ([id number]) [address], [address] [place] [address] Platelets (Bld) [#/Vol] 493 10*3/uL High 150-450 [facility] Comment on above: Performed By: #### E LEC #### [facility] ([id number]) [address], [address] [place] [address] RBC COUNT 4.57 X10E12/L Normal 3.80-5.20 [facility] Comment on above: Performed By: #### E LEC #### [facility] ([id number]) [address], [address] [place] [address] SEG NEUTROPHIL 74.0 % Normal [facility] Comment on above: Performed By: #### E LEC #### [facility] ([id number]) [address], [address] [place] [address] WBC (Bld) [#/Vol] 16.3 10*3/uL High 4.0-11.0 [facility] Comment on above: Performed By: #### E LEC #### [facility] ([id number]) [address], [address] [place] [address] CK [Catalytic activity/Vol]o n 02-23-2024 CPK <10 Low 24-170 [facility] Comment on above: Performed By: #### E LEC #### [facility] ([id number]) [address], [address] [place] [address] COMPREHENSIVE METABOLIC PANE Harsha 02-23-2024 Albumin [Mass/Vol] 2.9 g/dL Low 3.2-5.3 [facility] Comment on above: Performed By: #### E LEC #### [facility] ([id number]) [address], [address] [place] [address] ALP [Catalytic activity/Vol] 69 U/L Normal 39-130 [facility] Comment on above: Performed By: #### E LEC #### [facility] ([id number]) [address], [address] [place] [address] ALT [Catalytic activity/Vol] 7 U/L Normal 0-31 [facility] Comment on above: Performed By: #### E LEC #### [facility] ([id number]) [address], [address] [place] [address] Anion gap [Moles/Vol] 7 mmol/L Normal 5-15 [facility] Comment on above: Performed By: #### E LEC #### [facility] ([id number]) [address], [address] [place] [address] AST [Catalytic activity/Vol] 11 U/L Normal 0-41 [facility] Comment on above: Performed By: #### E LEC #### [facility] ([id number]) [address], [address] [place] [address] Bilirubin [Mass/Vol] 0.2 mg/dL Low 0.3-1.2 [facility] Comment on above: Performed By: #### E LEC #### [facility] ([id number]) [address], [address] [place] [address] Calcium [Mass/Vol] 9.4 mg/dL Normal 8.5-10.5 [facility] Comment on above: Performed By: #### E LEC #### [facility] ([id number]) [address], [address] [place] [address] Chloride [Moles/Vol] 103 mmol/L Normal 98-109 [facility] Comment on above: Performed By: #### E LEC #### [facility] ([id number]) [address], [address] [place] [address] CO2 [Moles/Vol] 31 mmol/L Normal 22-32 [facility] Comment on above: Performed By: #### E LEC #### [facility] ([id number]) [address], [address] [place] [address] Creatinine [Mass/Vol] 0.97 mg/dL Normal 0.40-1.00 [facility] Comment on above: Result Comment: METH OD TRACEABLE TO IDMS STANDARD Performed By: #### E LEC #### [facility] ([id number]) [address] [facility] [place] [address] GFR/1.73 sq M.predicted among non-blacks MDRD (S/P/Bld) [Vol rate/Area] 60 mL/min/{1.73_m2} Normal >59 [facility] Comment on above: Result Comment: Reported eGFR is based on the CKD-EPI 2020 equation that does not use a race coefficient. Performed By: #### E LEC #### [facility] ([id number]) [address], [address] [place] [address] Glucose [Mass/Vol] 86 mg/dL Normal 65-99 [facility] Comment on above: Performed By: #### E LEC #### [facility] ([id number]) [address], [address] [place] [address] Potassium [Moles/Vol] 4.6 mmol/L Normal 3.5-5.0 [facility] Comment on above: Performed By: #### E LEC #### [facility] ([id number]) [address], [address] [place] [address] Protein [Mass/Vol] 6.6 g/dL Normal 6.0-8.0 [facility] Comment on above: Performed By: #### E LEC #### [facility] ([id number]) [address], [address] [place] [address] Sodium [Moles/Vol] 141 mmol/L Normal 134-146 [facility] Comment on above: Performed By: #### E LEC #### [facility] ([id number]) [address] [place] [address] Urea nitrogen [Mass/Vol] 31 mg/dL High 5-27 [facility] Comment on above: Performed By: #### E LEC #### [facility] ([id number]) [address], [address] [place] [address] FL SWALLOW MOTILITY FUNCTION on 02-23-2024 FL [...] León Parikh on 02/23/2024 8:44 AM Normal [facility] MAGNESIUMon 02-23-2024 Magnesium [Mass/Vol] 1.7 mg/dL Low 1.8-2.6 [facility] Comment on above: Performed By: #### E LEC #### [facility] ([id number]) [address], [address] [place] [address] PHOSPHORUSon 02-23-2024 Phosphate [Mass/Vol] 3.8 mg/dL Normal 2.4-4.9 [facility] Comment on above: Performed By: #### E LEC #### [facility] ([id number]) [address], [address] [place] [address] CBC AND AUTO DIFFon 02-22-20 Erythrocyte distribution width (RBC) [Ratio] 18.6 % High 11.5-15.0 [facility] Comment on above: Performed By: #### E LEC #### [facility] ([id number]) [address], [address] [place] [address] Hematocrit (Bld) [Volume fraction] 34.2 % Low 35-47 [facility] Comment on above: Performed By: #### E LEC #### [facility] ([id number]) [address], [address] [place] [address] Hemoglobin (Bld) [Mass/Vol] 11.0 g/dL Low 11.7-15.5 [facility] Comment on above: Performed By: #### E LEC #### [facility] ([id number]) [address], [address] [place] [address] HYPOCHROMIA 2+ Abnormal NONE [facility] Comment on above: Performed By: #### E LEC #### [facility] ([id number]) [address], [address] [place] [address] Lymphocytes (Bld) [#/Vol] 2.6 10*3/uL Normal 1.0-3.5 [facility] Comment on above: Performed By: #### E LEC #### [facility] ([id number]) [address], [address] [place] [address] Lymphocytes/100 WBC (Bld) 17.0 % Normal [facility] Comment on above: Performed By: #### E LEC #### [facility] ([id number]) [address], [address] [place] [address] MCH (RBC) [Entitic mass] 24.5 pg Low 27-34 [facility] Comment on above: Performed By: #### E LEC #### [facility] ([id number]) [address], [address] [place] [address] MCHC (RBC) [Mass/Vol] 32.0 g/dL Normal 32-36 [facility] Comment on above: Performed By: #### E LEC #### [facility] ([id number]) [address], [address] [place] [address] MCV (RBC) [Entitic vol] 76 fL Low 80-100 [facility] Comment on above: Performed By: #### E LEC #### [facility] ([id number]) [address], [address] [place] [address] Monocytes (Bld) [#/Vol] 0.6 10*3/uL Normal 0-0.9 [facility] Comment on above: Performed By: #### E LEC #### [facility] ([id number]) [address], [address] [place] [address] Monocytes/100 WBC (Bld) 4.0 % Normal [facility] Comment on above: Performed By: #### E LEC #### [facility] ([id number]) [address], [address] [place] [address] Neutrophils (Bld) [#/Vol] 12.0 10*3/uL High 1.5-6.6 [facility] Comment on above: Performed By: #### E LEC #### [facility] ([id number]) [address], [address] [place] [address] Platelet mean volume (Bld) [Entitic vol] 6.6 fL Low 7-12 [facility] Comment on above: Performed By: #### E LEC #### [facility] ([id number]) [address], [address] [place] [address] Platelets (Bld) [#/Vol] 444 10*3/uL Normal 150-450 [facility] Comment on above: Performed By: #### E LEC #### [facility] ([id number]) [address], [address] [place] [address] RBC COUNT 4.47 X10E12/L Normal 3.80-5.20 [facility] Comment on above: Performed By: #### E LEC #### [facility] ([id number]) [address], [address] [place] [address] SEG NEUTROPHIL 79.0 % Normal [facility] Comment on above: Performed By: #### E LEC #### [facility] ([id number]) [address], [address] [place] [address] WBC (Bld) [#/Vol] 15.2 10*3/uL High 4.0-11.0 [facility] Comment on above: Performed By: #### E LEC #### [facility] ([id number]) [address], [address] [place] [address] COMPREHENSIVE METABOLIC PANE Harsha 02-22-2024 Albumin [Mass/Vol] 2.9 g/dL Low 3.2-5.3 [facility] Comment on above: Performed By: #### E LEC #### [facility] ([id number]) [address], [address] [place] [address] ALP [Catalytic activity/Vol] 80 U/L Normal 39-130 [facility] Comment on above: Performed By: #### E LEC #### [facility] ([id number]) [address], [address] [place] [address] ALT [Catalytic activity/Vol] 9 U/L Normal 0-31 [facility] Comment on above: Performed By: #### E LEC #### [facility] ([id number]) [address] [place] [address] Anion gap [Moles/Vol] 8 mmol/L Normal 5-15 [facility] Comment on above: Performed By: #### E LEC #### [facility] LAB ([id number]) [address], [address] [place] [address] AST [Catalytic activity/Vol] 12 U/L Normal 0-41 [facility] Comment on above: Performed By: #### E LEC #### [facility] ([id number]) [address], [address] [place] [address] Bilirubin [Mass/Vol] 0.2 mg/dL Low 0.3-1.2 [facility] Comment on above: Performed By: #### E LEC #### [facility] ([id number]) [address], [address] [place] [address] Calcium [Mass/Vol] 9.2 mg/dL Normal 8.5-10.5 [facility] Comment on above: Performed By: #### E LEC #### [facility] ([id number]) [address], [address] [place] [address] Chloride [Moles/Vol] 103 mmol/L Normal 98-109 [facility] Comment on above: Performed By: #### E LEC #### [facility] ([id number]) [address], [address] [place] [address] CO2 [Moles/Vol] 32 mmol/L Normal 22-32 [facility] Comment on above: Performed By: #### E LEC #### [facility] ([id number]) [address], [address] [place] [address] Creatinine [Mass/Vol] 0.94 mg/dL Normal 0.40-1.00 [facility] Comment on above: Result Comment: METH OD TRACEABLE TO IDMS STANDARD Performed By: #### E LEC #### [facility] ([id number]) [address], [address] [place] [address] GFR/1.73 sq M.predicted among non-blacks MDRD (S/P/Bld) [Vol rate/Area] 62 mL/min/{1.73_m2} Normal >59 [facility] Comment on above: Result Comment: Reported eGFR is based on the CKD-EPI 2020 equation that does not use a race coefficient. Performed By: #### E LEC #### [facility] ([id number]) [address] [place] [address] Glucose [Mass/Vol] 128 mg/dL High 65-99 [facility] Comment on above: Performed By: #### E LEC #### [facility] ([id number]) [address], [address] [place] [address] Potassium [Moles/Vol] 4.2 mmol/L Normal 3.5-5.0 [facility] Comment on above: Performed By: #### E LEC #### [facility] ([id number]) [address], [address] [place] [address] Protein [Mass/Vol] 6.9 g/dL Normal 6.0-8.0 [facility] Comment on above: Performed By: #### E LEC #### [facility] ([id number]) [address], [address] [place] [address] Sodium [Moles/Vol] 143 mmol/L Normal 134-146 [facility] Comment on above: Performed By: #### E LEC #### [facility] ([id number]) [address], [address] [place] [address] Urea nitrogen [Mass/Vol] 29 mg/dL High 5-27 [facility] Comment on above: Performed By: #### E LEC #### [facility] ([id number]) [address] [place] [address] MAGNESIUMon 02-22-2024 Magnesium [Mass/Vol] 2.0 mg/dL Normal 1.8-2.6 [facility] Comment on above: Performed By: #### E LEC #### [facility] ([id number]) [address] [facility] [place] [address] PHOSPHORUSon 02-22-2024 Phosphate [Mass/Vol] 3.3 mg/dL Normal 2.4-4.9 [facility] Comment on above: Performed By: #### E LEC #### [facility] ([id number]) [address] [facility] [facility] [place] [address] C DIFFICILE BY PCRon 024 C. difficile toxin genes ELIZABETH+probe Ql (Stl) TOXIGENIC C DIFF Negative (qualifier value) 027 NAP1 Negative (qualifier value) Normal PRNEG [facility] Comment on above: Performed By: #### E LEC #### [facility] ([id number]) [address], [address] [place] [address] CBC AND AUTO DIFFon 02-21-20 24 ABSOLUTE BASOPHIL 0.0 X10E9/L Normal 0.0-0.2 [facility] Comment on above: Performed By: #### E LEC #### [facility] ([id number]) [address], [address] [place] [address] ABSOLUTE NEUTROPHIL 10.9 X10E9/L High 1.5-6.6 [facility] Comment on above: Performed By: #### E LEC #### [facility] ([id number]) [address], [address] [place] [address] Basophils/100 WBC (Bld) 0.2 % Normal [facility] Comment on above: Performed By: #### E LEC #### [facility] ([id number]) [address], [address] [place] [address] Eosinophils (Bld) [#/Vol] 0.0 10*3/uL Normal 0.0-0.4 [facility] Comment on above: Performed By: #### E LEC #### [facility] ([id number]) [address], [address] [place] [address] Eosinophils/100 WBC (Bld) 0.0 % Normal [facility] Comment on above: Performed By: #### E LEC #### [facility] ([id number]) [address] [place] [address] Erythrocyte distribution width (RBC) [Ratio] 18.0 % High 11.5-15.0 [facility] Comment on above: Performed By: #### E LEC #### [facility] ([id number]) [address], [address] [place] [address] Hematocrit (Bld) [Volume fraction] 32.3 % Low 35-47 [facility] Comment on above: Performed By: #### E LEC #### [facility] ([id number]) [address] [place] [address] Hemoglobin (Bld) [Mass/Vol] 10.5 g/dL Low 11.7-15.5 [facility] Comment on above: Performed By: #### E LEC #### [facility] ([id number]) [address], [address] [place] [address] Lymphocytes (Bld) [#/Vol] 2.1 10*3/uL Normal 1.0-3.5 [facility] Comment on above: Performed By: #### E LEC #### [facility] ([id number]) [address], [address] [place] [address] Lymphocytes/100 WBC (Bld) 14.7 % Normal [facility] Comment on above: Performed By: #### E LEC #### [facility] ([id number]) [address] [place] [address] MCH (RBC) [Entitic mass] 24.6 pg Low 27-34 [facility] Comment on above: Performed By: #### E LEC #### [facility] ([id number]) [address] [place] [address] MCHC (RBC) [Mass/Vol] 32.5 g/dL Normal 32-36 [facility] Comment on above: Performed By: #### E LEC #### [facility] ([id number]) [address], [address] [place] [address] MCV (RBC) [Entitic vol] 76 fL Low 80-100 [facility] Comment on above: Performed By: #### E LEC #### [facility] ([id number]) [address], [address] [place] [address] Monocytes (Bld) [#/Vol] 1.3 10*3/uL High 0-0.9 [facility] Comment on above: Performed By: #### E LEC #### [facility] ([id number]) [address], [address] [place] [address] Monocytes/100 WBC (Bld) 9.2 % Normal [facility] Comment on above: Performed By: #### E LEC #### [facility] ([id number]) [address], [address] [place] [address] Neutrophils/100 WBC (Bld) 75.9 % Normal [facility] Comment on above: Performed By: #### E LEC #### [facility] ([id number]) [address], [address] [place] [address] Platelet mean volume (Bld) [Entitic vol] 6.7 fL Low 7-12 [facility] Comment on above: Performed By: #### E LEC #### [facility] ([id number]) [address], [address] [place] [address] Platelets (Bld) [#/Vol] 448 10*3/uL Normal 150-450 [facility] Comment on above: Performed By: #### E LEC #### [facility] ([id number]) [address], [address] [place] [address] RBC COUNT 4.27 X10E12/L Normal 3.80-5.20 [facility] Comment on above: Performed By: #### E LEC #### [facility] ([id number]) [address], [address] [place] [address] WBC (Bld) [#/Vol] 14.4 10*3/uL High 4.0-11.0 [facility] Comment on above: Performed By: #### E LEC #### [facility] ([id number]) [address], [address] [place] [address] COMPREHENSIVE METABOLIC PANE Harsha 02-21-2024 Albumin [Mass/Vol] 2.9 g/dL Low 3.2-5.3 [facility] Comment on above: Performed By: #### E LEC #### [facility] ([id number]) [address], [address] [place] [address] ALP [Catalytic activity/Vol] 81 U/L Normal 39-130 [facility] Comment on above: Performed By: #### E LEC #### [facility] ([id number]) [address], [address] [place] [address] ALT [Catalytic activity/Vol] 4 U/L Normal 0-31 [facility] Comment on above: Performed By: #### E LEC #### [facility] ([id number]) [address], [address] [place] [address] Anion gap [Moles/Vol] 7 mmol/L Normal 5-15 [facility] Comment on above: Performed By: #### E LEC #### [facility] ([id number]) [address], [address] [place] [address] AST [Catalytic activity/Vol] 9 U/L Normal 0-41 [facility] Comment on above: Performed By: #### E LEC #### [facility] ([id number]) [address], [address] [place] [address] Bilirubin [Mass/Vol] 0.2 mg/dL Low 0.3-1.2 [facility] Comment on above: Performed By: #### E LEC #### [facility] ([id number]) [address], [address] [place] [address] Calcium [Mass/Vol] 8.9 mg/dL Normal 8.5-10.5 [facility] Comment on above: Performed By: #### E LEC #### [facility] ([id number]) [address], [address] [place] [address] Chloride [Moles/Vol] 102 mmol/L Normal 98-109 [facility] Comment on above: Performed By: #### E LEC #### [facility] ([id number]) [address], [address] [place] [address] CO2 [Moles/Vol] 34 mmol/L High 22-32 [facility] Comment on above: Performed By: #### E LEC #### [facility] ([id number]) [address], [address] [place] [address] Creatinine [Mass/Vol] 1.09 mg/dL High 0.40-1.00 [facility] Comment on above: Result Comment: METH OD TRACEABLE TO IDMS STANDARD Performed By: #### E LEC #### [facility] ([id number]) [address], [address] [place] [address] GFR/1.73 sq M.predicted among non-blacks MDRD (S/P/Bld) [Vol rate/Area] 52 mL/min/{1.73_m2} Low >59 [facility] Comment on above: Result Comment: Reported eGFR is based on the CKD-EPI 2020 equation that does not use a race coefficient. Performed By: #### E LEC #### [facility] ([id number]) [address] [address] [place] [address] Glucose [Mass/Vol] 150 mg/dL High 65-99 [facility] Comment on above: Performed By: #### E LEC #### [facility] ([id number]) [address] [address] [place] [address] Potassium [Moles/Vol] 4.0 mmol/L Normal 3.5-5.0 [facility] Comment on above: Performed By: #### E LEC #### [facility] ([id number]) [address] [address] [place] [address] Protein [Mass/Vol] 6.8 g/dL Normal 6.0-8.0 [facility] Comment on above: Performed By: #### E LEC #### [facility] ([id number]) [address], [address] [place] [address] Sodium [Moles/Vol] 143 mmol/L Normal 134-146 [facility] Comment on above: Performed By: #### E LEC #### [facility] ([id number]) [address] [address] [place] [address] Urea nitrogen [Mass/Vol] 25 mg/dL Normal 5-27 [facility] Comment on above: Performed By: #### E LEC #### [facility] ([id number]) [address] [address] [place] [address] GI PANELon 02-21-2024 Gastrointestinal pathogens DNA and [...] SAPOVIRUS Not detected (qualifier value) Normal NDET [facility] Comment on above: Performed By: #### E LEC #### [facility] ([id number]) [address] [address] MAGNESIUMon 02-21-2024 Magnesium [Mass/Vol] 2.4 mg/dL Normal 1.8-2.6 [facility] Comment on above: Performed By: #### E LEC #### [facility] ([id number]) [address] [facility] [facility] [address] [place] [address] PHOSPHORUSon 02-21-2024 Phosphate [Mass/Vol] 3.7 mg/dL Normal 2.4-4.9 [facility] Comment on above: Performed By: #### E LEC #### [facility] ([id number]) [address] [address] CBC AND AUTO DIFFon 02-20-20 ABSOLUTE BASOPHIL 0.0 X10E9/L Normal 0.0-0.2 [facility] Comment on above: Performed By: #### E LEC #### [facility] ([id number]) [address] [place] [address] ABSOLUTE NEUTROPHIL 10.4 X10E9/L High 1.5-6.6 [facility] Comment on above: Performed By: #### E LEC #### [facility] ([id number]) [address] [place] [address] Basophils/100 WBC (Bld) 0.1 % Normal [facility] Comment on above: Performed By: #### E LEC #### [facility] ([id number]) [address] [place] [address] Eosinophils (Bld) [#/Vol] 0.0 10*3/uL Normal 0.0-0.4 [facility] Comment on above: Performed By: #### E LEC #### [facility] ([id number]) [address] [place] [address] Eosinophils/100 WBC (Bld) 0.0 % Normal [facility] Comment on above: Performed By: #### E LEC #### [facility] ([id number]) [address] [place] [address] Erythrocyte distribution width (RBC) [Ratio] 18.1 % High 11.5-15.0 [facility] Comment on above: Performed By: #### E LEC #### [facility] ([id number]) [address] [place] [address] Hematocrit (Bld) [Volume fraction] 33.6 % Low 35-47 [facility] Comment on above: Performed By: #### E LEC #### [facility] ([id number]) [address] [place] [address] Hemoglobin (Bld) [Mass/Vol] 11.2 g/dL Low 11.7-15.5 [facility] Comment on above: Performed By: #### E LEC #### [facility] ([id number]) [address] [place] [address] Lymphocytes (Bld) [#/Vol] 1.3 10*3/uL Normal 1.0-3.5 [facility] Comment on above: Performed By: #### E LEC #### [facility] ([id number]) [address] [place] [address] Lymphocytes/100 WBC (Bld) 10.6 % Normal [facility] Comment on above: Performed By: #### E LEC #### [facility] ([id number]) [address] [place] [address] MCH (RBC) [Entitic mass] 25.1 pg Low 27-34 [facility] Comment on above: Performed By: #### E LEC #### [facility] ([id number]) [address] [place] [address] MCHC (RBC) [Mass/Vol] 33.3 g/dL Normal 32-36 [facility] Comment on above: Performed By: #### E LEC #### [facility] ([id number]) [address] [place] [address] MCV (RBC) [Entitic vol] 76 fL Low 80-100 [facility] Comment on above: Performed By: #### E LEC #### [facility] ([id number]) [address] [place] [address] Monocytes (Bld) [#/Vol] 0.5 10*3/uL Normal 0-0.9 [facility] Comment on above: Performed By: #### E LEC #### [facility] ([id number]) [address] [place] [address] Monocytes/100 WBC (Bld) 3.7 % Normal [facility] Comment on above: Performed By: #### E LEC #### [facility] ([id number]) [address] [place] [address] Neutrophils/100 WBC (Bld) 85.6 % Normal [facility] Comment on above: Performed By: #### E LEC #### [facility] ([id number]) [address] [place] [address] Platelet mean volume (Bld) [Entitic vol] 6.9 fL Low 7-12 [facility] Comment on above: Performed By: #### E LEC #### [facility] ([id number]) [address] [place] [address] Platelets (Bld) [#/Vol] 425 10*3/uL Normal 150-450 [facility] Comment on above: Performed By: #### E LEC #### [facility] ([id number]) [address] [place] [address] RBC COUNT 4.45 X10E12/L Normal 3.80-5.20 [facility] Comment on above: Performed By: #### E LEC #### [facility] ([id number]) [address] [place] [address] WBC (Bld) [#/Vol] 12.1 10*3/uL High 4.0-11.0 [facility] Comment on above: Performed By: #### E LEC #### [facility] ([id number]) [address] [place] [address] COMPREHENSIVE METABOLIC PANE Harsha 02-20-2024 Albumin [Mass/Vol] 3.0 g/dL Low 3.2-5.3 [facility] Comment on above: Performed By: #### E LEC #### [facility] ([id number]) [address] [place] [address] ALP [Catalytic activity/Vol] 81 U/L Normal 39-130 [facility] Comment on above: Performed By: #### E LEC #### [facility] ([id number]) [address] [place] [address] ALT [Catalytic activity/Vol] U/L Normal 0-31 [facility] Comment on above: Performed By: #### E LEC #### [facility] ([id number]) [address] [place] [address] Anion gap [Moles/Vol] 10 mmol/L Normal 5-15 [facility] Comment on above: Performed By: #### E LEC #### [facility] ([id number]) [address] [place] [address] AST [Catalytic activity/Vol] 9 U/L Normal 0-41 [facility] Comment on above: Performed By: #### E LEC #### [facility] ([id number]) [address] [place] [address] Bilirubin [Mass/Vol] 0.2 mg/dL Low 0.3-1.2 [facility] Comment on above: Performed By: #### E LEC #### [facility] ([id number]) [address] [place] [address] Calcium [Mass/Vol] 9.1 mg/dL Normal 8.5-10.5 [facility] Comment on above: Performed By: #### E LEC #### [facility] ([id number]) [address] [place] [address] Chloride [Moles/Vol] 97 mmol/L Low 98-109 [facility] Comment on above: Performed By: #### E LEC #### [facility] ([id number]) [address] [place] [address] CO2 [Moles/Vol] 33 mmol/L High 22-32 [facility] [place] [facility] Comment on above: Performed By: #### E LEC #### [facility] ([id number]) [address] [place] [address] Creatinine [Mass/Vol] 1.16 mg/dL High 0.40-1.00 [facility] Comment on above: Result Comment: METH OD TRACEABLE TO IDMS STANDARD Performed By: #### E LEC #### [facility] ([id number]) [address] [place] [address] GFR/1.73 sq M.predicted among non-blacks MDRD (S/P/Bld) [Vol rate/Area] 48 mL/min/{1.73_m2} Low >59 [facility] Comment on above: Result Comment: Reported eGFR is based on the CKD-EPI 2020 equation that does not use a race coefficient. Performed By: #### E LEC #### [facility] ([id number]) [address] [place] [address] Glucose [Mass/Vol] 171 mg/dL High 65-99 [facility] Comment on above: Performed By: #### E LEC #### [facility] ([id number]) [address] [place] [address] Potassium [Moles/Vol] 3.6 mmol/L Normal 3.5-5.0 [facility] Comment on above: Performed By: #### E LEC #### [facility] ([id number]) [address] [place] [address] Protein [Mass/Vol] 7.1 g/dL Normal 6.0-8.0 [facility] Comment on above: Performed By: #### E LEC #### [facility] ([id number]) [address] [place] [address] Sodium [Moles/Vol] 140 mmol/L Normal 134-146 [facility] Comment on above: Performed By: #### E LEC #### [facility] ([id number]) [address] [place] [address] Urea nitrogen [Mass/Vol] 16 mg/dL Normal 5-27 [facility] Comment on above: Performed By: #### E LEC #### [facility] ([id number]) [address] [place] [address] MAGNESIUMon 02-20-2024 Magnesium [Mass/Vol] 2.8 mg/dL High 1.8-2.6 [facility] Comment on above: Performed By: #### E LEC #### [facility] ([id number]) [address] [place] [address] Magnesium [Mass/Vol] 1.5 mg/dL Low 1.8-2.6 [facility] Comment on above: Performed By: #### E LEC #### [facility] ([id number]) [address] [place] [address] PHOSPHORUSon 02-20-2024 Phosphate [Mass/Vol] 3.6 mg/dL Normal 2.4-4.9 [facility] Comment on above: Performed By: #### E LEC #### [facility] ([id number]) [address] [place] [address] POTASSIUMon 02-20-2024 Potassium [Moles/Vol] 4.1 mmol/L Normal 3.5-5.0 [facility] Comment on above: Performed By: #### E LEC #### [facility] ([id number]) [address] [place] [address] BASIC METABOLIC PANLon 02-18 Anion gap [Moles/Vol] 10 mmol/L Normal 5-15 [facility] Comment on above: Performed By: #### C BC, BMP, 236[address]-1, 2777-1 #### [facility] ([id number]) [address] [place] [address] Calcium [Mass/Vol] 9.5 mg/dL Normal 8.5-10.5 [facility] Comment on above: Performed By: #### SANTOSH SALEEM, , 2776-10 #### [facility] ([id number]) [address] [place] [address] Chloride [Moles/Vol] 96 mmol/L Low 98-109 [facility] Comment on above: Performed By: #### SANTOSH SALEEM, , 2776-10 #### [facility] ([id number]) [address] [place] [address] CO2 [Moles/Vol] 32 mmol/L Normal 22-32 [facility] Comment on above: Performed By: #### SANTOSH SALEEM, , 2776-10 #### [facility] ([id number]) [address] [place] [address] Creatinine [Mass/Vol] 1.10 mg/dL High 0.40-1.00 [facility] Comment on above: Result Comment: METH OD TRACEABLE TO IDMS STANDARD Performed By: #### Timmy MILLIGAN, SANTOSH, , 2776-10 #### [facility] ([id number]) [address] [place] [address] GFR/1.73 sq M.predicted among non-blacks MDRD (S/P/Bld) [Vol rate/Area] 51 mL/min/{1.73_m2} Low >59 [facility] Comment on above: Result Comment: Reported eGFR is based on the CKD-EPI 2020 equation that does not use a race coefficient. Performed By: #### Timmy MILLIGAN, BMP, , 2776-10 #### [facility] ([id number]) [address] [place] [address] Glucose [Mass/Vol] 131 mg/dL High 65-99 [facility] Comment on above: Performed By: #### C SANTOSH MILLIGAN, , 2776-10 #### [facility] ([id number]) [address] [place] [address] Potassium [Moles/Vol] 3.9 mmol/L Normal 3.5-5.0 [facility] Comment on above: Performed By: #### C SANTOSH MILLIGAN, , 2776-10 #### [facility] ([id number]) [address] [place] [address] Sodium [Moles/Vol] 138 mmol/L Normal 134-146 [facility] Comment on above: Performed By: #### SANTOSH SALEEM, , 2776-10 #### [facility] ([id number]) [address], [address] [place] [address] Urea nitrogen [Mass/Vol] 11 mg/dL Normal 5-27 [facility] Comment on above: Performed By: #### SANTOSH SALEEM, , 2776-10 #### [facility] ([id number]) [address], [address] [place] [address] BLOOD CULTUREon 02-19-2024 Bacteria identified Aer cx Nom (Bld) SPECIMEN NOTES ONLY ANAEROBIC BOTTLE SENT CULTURE RESULTS NO GROWTH 5 DAYS Normal [facility] Comment on above: Performed By: #### E LEC #### [facility] ([id number]) [address], [address] [place] [address] Bacteria identified Aer cx Nom (Bld) CULTURE RESULTS NO GROWTH 5 DAYS Normal [facility] CBC AND AUTO DIFFon 02-19-20 24 ABSOLUTE BASOPHIL 0.0 X10E9/L Normal 0.0-0.2 [facility] Comment on above: Performed By: #### C SANTOSH MILLIGAN, , 2776-10 #### [facility] ([id number]) [address], [address] [place] [address] ABSOLUTE NEUTROPHIL 10.1 X10E9/L High 1.5-6.6 [facility] Comment on above: Performed By: #### Timmy MILLIGAN, [facility], , 2776-10 #### [facility] ([id number]) [address], [address] [place] [address] Basophils/100 WBC (Bld) 0.3 % Normal [facility] Comment on above: Performed By: #### Timmy MILLIGAN [facility], , 2776-10 #### [facility] ([id number]) [address], [address] [place] [address] Eosinophils (Bld) [#/Vol] 0.2 10*3/uL Normal 0.0-0.4 [facility] Comment on above: Performed By: #### SANTOSH SALEEM, , 2776-10 #### [facility] ([id number]) [address], [address] [place] [address] Eosinophils/100 WBC (Bld) 1.3 % Normal [facility] Comment on above: Performed By: #### SANTOSH SALEEM, , 2776-10 #### [facility] ([id number]) [address], [address] [place] [address] Erythrocyte distribution width (RBC) [Ratio] 18.1 % High 11.5-15.0 [facility] Comment on above: Performed By: #### Timmy MILLIGAN, SANTOSH, , 2776-10 #### [facility] ([id number]) [address], [address] [place] [address] Hematocrit (Bld) [Volume fraction] 37.8 % Normal 35-47 [facility] Comment on above: Performed By: #### SANTOSH SALEEM, , 2776-10 #### [facility] ([id number]) [address], [address] [place] [address] Hemoglobin (Bld) [Mass/Vol] 12.1 g/dL Normal 11.7-15.5 [facility] Comment on above: Performed By: #### Timmy MILLIGAN, [facility], , 2776-10 #### [facility] ([id number]) [address], [address] [place] [address] Lymphocytes (Bld) [#/Vol] 2.5 10*3/uL Normal 1.0-3.5 [facility] Comment on above: Performed By: #### Timmy MILLIGAN, [facility], , 2776-10 #### [facility] ([id number]) [address] [place] [address] Lymphocytes/100 WBC (Bld) 17.9 % Normal [facility] Comment on above: Performed By: #### Timmy MILLIGAN, [facility], , 2776-10 #### [facility] ([id number]) [address], [address] [place] [address] MCH (RBC) [Entitic mass] 24.4 pg Low 27-34 [facility] Comment on above: Performed By: #### SANTOSH SALEEM, , 2776-10 #### [facility] ([id number]) [address], [address] [place] [address] MCHC (RBC) [Mass/Vol] 32.0 g/dL Normal 32-36 [facility] Comment on above: Performed By: #### Timmy MILLIGAN, SANTOSH, , 2776-10 #### [facility] ([id number]) [address] [place] [address] MCV (RBC) [Entitic vol] 76 fL Low 80-100 [facility] Comment on above: Performed By: #### C SRINI, BMP, , 2776-10 #### [facility] ([id number]) [address], [address] [place] [address] Monocytes (Bld) [#/Vol] 1.4 10*3/uL High 0-0.9 [facility] Comment on above: Performed By: #### Timmy MILLIGAN, BMP, , 2776-10 #### [facility] ([id number]) [address], [address] [place] [address] Monocytes/100 WBC (Bld) 9.9 % Normal [facility] Comment on above: Performed By: #### Timmy MILLIGAN, BMP, , 2776-10 #### [facility] ([id number]) [address], [address] [place] [address] Neutrophils/100 WBC (Bld) 70.6 % Normal [facility] Comment on above: Performed By: #### Timmy MILLIGAN, SANTOSH, , 2776-10 #### [facility] ([id number]) [address], [address] [place] [address] Platelet mean volume (Bld) [Entitic vol] 6.9 fL Low 7-12 [facility] Comment on above: Performed By: #### Timmy MILLIGAN, BMP, , 2776-10 #### [facility] ([id number]) [address], [address] [place] [address] Platelets (Bld) [#/Vol] 485 10*3/uL High 150-450 [facility] Comment on above: Performed By: #### Timmy MILLIGAN, BMP, , 2776-10 #### [facility] ([id number]) [address], [address] [place] [address] RBC COUNT 4.95 X10E12/L Normal 3.80-5.20 [facility] Comment on above: Performed By: #### C BC, BMP, 00725-9, 2777-1 #### [facility] ([id number]) [address], [address] [place] [address] WBC (Bld) [#/Vol] 14.2 10*3/uL High 4.0-11.0 [facility] Comment on above: Performed By: #### C BC, BMP, 69688-7, 2777-1 #### [facility] ([id number]) [address] [place] [address] CT ABDOMEN AND PELVIS W CONT on [...] Lehman MD on 02/19/2024 4:54 PM Normal [facility] LEGIONELLA URINE AGon 2023 L. pneumophila Ag IA Ql (U) LEGIONELLA URINE AG Negative (qualifier value) NEGATIVE FOR L.PNEUMOPHILA SEROGROUP 1 ANTIGEN Normal [facility] Comment on above: Performed By: #### E LEC #### [facility] ([id number]) [address] [facility] [place] [address] Lactate (P timmy) [Moles/Vol]o n 02-19-2024 LACTATE W/REFLEX 1.7 mmol/L Normal 0.4-2.0 [facility] Comment on above: Result Comment: Result did not trigger repeat Lactate, re-order if needed. Performed By: #### C BC, [facility], [address]-1, 2777-1 #### [facility] ([id number]) [address] [facility] [facility] [place] [address] MRSA PCR NASALon 02-19-2024 MRSA DNA ELIZABETH+probe Ql (Unsp spec) Negative Normal NEG [facility] Comment on above: Performed By: #### E LEC #### [facility] ([id number]) [address] [facility] [facility] [place] [address] Natriuretic peptide B [Mass/ Vol]on 02-19-2024 Natriuretic peptide B (Bld) [Mass/Vol] 38 pg/mL Normal <100.0 [facility] Comment on above: Performed By: #### C SRINI, [facility], , 277-1 #### [facility] ([id number]) [address], [address] [place] [address] Nuclear Ab IA Ql (S)on 02-18 BRANDON Screen w/reflex Negative Normal NEG [facility] Comment on above: Result Comment: Testing performed using multiplex flow immunoassay. Eleven different antigens associated with systemic autoimmune diseases (dsDNA,Sm,Sm/MATCH UP WORKER,MATCH UP WORKER,Chromatin, SSA,SSB,Dacia-1,Scl70,Ribo P,Centromere B) are included in this screening test. Performed By: #### E LEC #### [facility] ([id number]) [address] [facility] [place] [address] PROTIME AND INRon 02-19-2024 INR Coag (PPP) [Relative time] 1.1 {INR} Normal 0.8-1.1 [facility] Comment on above: Performed By: #### C SRINI [facility], , 1 #### [facility] ([id number]) [address] [facility] [facility] [place] [address] PT Coag (PPP) [Time] 13.1 s Normal 9.8-13.2 [facility] Comment on above: Performed By: #### C SRINI [facility], , 2777-1 #### [facility] ([id number]) [address] [place] [address] Procalcitonin IA [Mass/Vol]o n 02-19-2024 PROCALCITONIN 0.10 ng/mL High <0.05 [facility] Comment on above: Result Comment: NOTE <0.50 ng/mL - Low risk of severe sepsis and/or septic shock. <2.00 ng/mL - Recommend retesting within 6-24 hours. >2.00 ng/mL - High risk of sepsis and/or septic shock. Performed By: #### E LEC #### [facility] ([id number]) [address], [address] [place] [address] Rheumatoid factor Nephelomet ry Qn (S)on 02-19-2024 RHEUMATOID FACTOR <10 Normal <20 [facility] Comment on above: Performed By: #### E LEC #### [facility] ([id number]) [address] [place] [address] S PNEUMONIAE AG Uon 02-19-20 S. pneumoniae Ag Ql (U) Negative Normal NEG [facility] Comment on above: Performed By: #### E LEC #### [facility] ([id number]) [address], [address] [place] [address] SARS/FLU A+B/RSV by NAAT/Mol ecularon 02-19-2024 SARS/FLU [...] operators who are performing tests using either [employer] or [employer] systems and is limited to laboratories that [...] repeat. Fact Sheet for Healthcare Providers: https://www.fda.gov/media/ 094813/download Fact Sheet for Patients: https://www.fda.gov/media/ 838465/download Normal [facility] Comment on above: Performed By: #### E LEC #### [facility] ([id number]) [address] [place] [address], [address] [address] STREP PCR THROATon S. pyogenes DNA ELIZABETH+probe Nom (Unsp spec) STREP PCR THROAT Negative (qualifier value) Streptococcus Group A NOT detected by nucleic acid amplification. Normal [facility] Comment on above: Performed By: #### E LEC #### [facility] ([id number]) [address] [place] [address] Troponin I.cardiac High sens itivity method [Mass/Vol]on 02-19-2024 1 HOUR TROP I, HIGH SENSITIVITY 4 ng/L Normal <16 [facility] Comment on above: Performed By: #### E LEC #### [facility] ([id number]) [address] [place] [address], [address] [address] TROPONIN I, HIGH SENSITIVITY 4 ng/L Normal <16 [facility] Comment on above: Performed By: #### C BC, [facility], [address]-7, 2777-1 #### [facility] ([id number]) [address] [place] [address], [address] [address] URINE CULTUREon 02-19-2024 Bacteria identified Cx Nom [...] Interpretation ] Organism: ENTEROCOCCUS SPECIES Antibiotic Interpretation NATAILA Status AMPICILLIN R >=32 F LEVOFLOXACIN R >=8 F LINEZOLID S 2 F NITROFURANTOIN I 64 F VANCOMYCIN R >=32 F [ S = SUSCEPTIBLE R = RESISTANT I = INTERMEDIATE S-DO = Susceptible-dose dependent NS = Non-suscceptible NO = No Interpretation ] Organism: ENTEROCOCCUS SPECIES Antibiotic Interpretation NATALIA Status DAPTOMYCIN S F Susceptible [facility] Comment on above: Performed By: #### E LEC #### [facility] ([id number]) [address] [place] [address] URN MACROSCOPIC NURon 2023 BILIRUBIN OLVIN Negative Normal NEG [facility] Comment on above: Performed By: #### E LEC #### [facility] ([id number]) [address] [place] [address] BLOOD/HGB OLVIN Small Abnormal NEG [facility] Comment on above: Performed By: #### E LEC #### [facility] ([id number]) [address], [address] [place] [address] GLUCOSE OLVIN Negative Normal NEG [facility] Comment on above: Performed By: #### E LEC #### [facility] ([id number]) [address] [place] [address] KETONES OLVIN Negative Normal NEG [facility] Comment on above: Performed By: #### E LEC #### [facility] ([id number]) [address] [place] [address] LEUKOCYTE ESTERASE OLVIN Small Abnormal NEG [facility] Comment on above: Performed By: #### E LEC #### [facility] ([id number]) [address] [place] [address] NITRITE OLVIN Negative Normal NEG [facility] Comment on above: Performed By: #### E LEC #### [facility] ([id number]) [address], [address] [place] [address] PH OLVIN 5.5 Normal 5.0-8.5 [facility] Comment on above: Performed By: #### E LEC #### [facility] ([id number]) [address] [place] [address] PROTEIN OLVIN Negative Normal NEG [facility] Comment on above: Performed By: #### E LEC #### [facility] ([id number]) [address] [place] [address] SPECIFIC GRAVITY OLVIN 1.015 Normal 1.003-1 .03 5 [facility] Comment on above: Performed By: #### E LEC #### [facility] ([id number]) [address] [place] [address] UROBILINOGEN OLVIN 0.2 eu/dL Normal <1.1 [facility] Comment on above: Performed By: #### E LEC #### [facility] ([id number]) [address] [place] [address] VENOUS BLOOD GASon 4 GUNJAN'S TEST Normal [facility] Comment on above: Performed By: #### E LEC #### [facility] ([id number]) [address] [place] [address] Base excess Calc (Bld) [Moles/Vol] 10.0 mmol/L High 0.0-2.0 [facility] Comment on above: Performed By: #### E LEC #### [facility] ([id number]) [address], [address] [place] [address] Body temperature 98.6 [degF] Normal 37.0 [facility] Comment on above: Performed By: #### E LEC #### [facility] ([id number]) [address] [place] [address] HCO3 (Bld) [Moles/Vol] 34.7 mmol/L High 20.0-24.[address] [facility] Comment on above: Performed By: #### E LEC #### [facility] ([id number]) [address] [place] [address] INSP. O2 CONC. 30 % Normal [facility] Comment on above: Performed By: #### E LEC #### [facility] ([id number]) [address] [place] [address] Oxygen saturation in Blood 89.0 % Normal >80.0 [facility] Comment on above: Performed By: #### E LEC #### [facility] ([id number]) [address] [place] [address] OXYGEN SOURCE NC Normal [facility] Comment on above: Performed By: #### E LEC #### [facility] ([id number]) [address] [place] [address] PCO2, VENOUS 46.3 MMHG Normal 35-50 [facility] Comment on above: Performed By: #### E LEC #### [facility] ([id number]) [address] [place] [address] PH, VENOUS 7.482 High 7.320-7.42 0 [facility] Comment on above: Performed By: #### E LEC #### [facility] ([id number]) [address] [place] [address] PO2, VENOUS 53 MMHG High 30-50 [facility] Comment on above: Performed By: #### E LEC #### [facility] ([id number]) [address] [facility] [place] [address] SAMPLE SITE N/A Normal [facility] Comment on above: Performed By: #### E LEC #### [facility] ([id number]) [address] [facility] [facility] [place] [address] SAMPLE TYPE VENOUS Normal [facility] Comment on above: Performed By: #### E LEC #### [facility] ([id number]) [address] [facility] [facility] [place] [address] XR CHEST 1 VWon 02-19-2024 XR CHEST [...] Hayes MD on 02/19/2024 3:46 PM Normal [facility] aPTT Coag (PPP) [Time]on aPTT Coag (Bld) [Time] 32 s Normal 26-37 [facility] Comment on above: Performed By: #### C BC, BMP, 44[address]-2, 2777-1 #### [facility] ([id number]) [address] [facility] [facility] [place] [address] Basic Metabolic Panelon 01-27 Creatinine Clr Calc Pharmacy 50.21 Normal [facility] Comment on above: Result Comment: PERF ORMED BY: [address] [address] PATHOLOGIST LOADING [employer] SUPERVISOR JORGE MURRELL M.D. Performed By: #### E SR, CBC, CMP, BNP #### [facility] [address] [place] [address] [place] GFR/1.73 sq M.predicted MDRD (S/P/Bld) [Vol rate/Area] mL/min/{1.73_m2} Normal [facility] Comment on above: Performed By: #### E SR, CBC, CMP, BNP #### [facility] [address] [place] [address] [place] Calcium [Mass/volume] in Ser um or PlasmaOrdered By: Lucho Wassosylvia on 02-17-2024 Calcium [Mass/Vol] 8.5 mg/dL Low 8.6-10.3 [facility] Comment on above: Performed By: #### E SR, CBC, CMP, BNP #### [facility] [address] [place] [address] [place] Carbon dioxide, total [Moles /volume] in Serum or PlasmaOrdered By: Lucho Wassosylvia on 02-17-2024 CO2 [Moles/Vol] 29.4 mmol/L Normal 21.0-31.0 [facility] Comment on above: Performed By: #### E SR, CBC, CMP, BNP #### [facility] [address] [place] [address] [place] Chloride [Moles/volume] in S kaveh or PlasmaOrdered By: Lucho Wassosylvia on 02-17-2024 Chloride [Moles/Vol] 103 mmol/L Normal 98-107 [facility] Comment on above: Performed By: #### E SR, CBC, CMP, BNP #### [facility] [address] [place] [address] [place] Creatinine [Mass/volume] in Serum or PlasmaOrdered By: Lucho Wassosylvia on 02-17-2024 Creatinine [Mass/Vol] 0.90 mg/dL Normal 0.60-1.20 [facility] Comment on above: Performed By: #### E SR, CBC, CMP, BNP #### [facility] [address] [place] [address] [place] Erythrocyte distribution wid th [Ratio] by Automated countOrdered By: Lucho Wassosylvia on 02-17-2024 Erythrocyte distribution width (RBC) [Ratio] 18.2 % High 11.9-15.3 [facility] Comment on above: Performed By: #### E SR, CBC, CMP, BNP #### [facility] [address] Erythrocytes [#/volume] in B lood by Automated countOrdered By: Lucho Grullon on 02-17-2024 RBC (Bld) [#/Vol] 4.25 10*6/uL Normal 3.60-5.00 [facility] Comment on above: Performed By: #### E SR, CBC, CMP, BNP #### [facility] [address] Glucose [Mass/volume] in Ser um or PlasmaOrdered By: Lucho Grullon on 02-17-2024 Glucose [Mass/Vol] 85 mg/dL Normal 70-100 [facility] Comment on above: ADA recommended refe rence rangeRandom Glucose Reference Range is dependent on time and content of last meal. Glucose of more than 200 mg/dL in a nonstressed, ambulatory subject supports the diagnosis of Diabetes Mellitus. Result Comment: [place] om Glucose Reference Range is dependent on time and content of last meal. Glucose of more than 200 mg/dL in a nonstressed, ambulatory subject supports the diagnosis of Diabetes Mellitus. ADA recommended reference range Performed By: #### E SR, CBC, CMP, BNP #### [facility] [address] Hematocrit [Volume Fraction] of Blood by Automated countOrdered By: Lucho Grullon on 02-17-2024 Hematocrit (Bld) [Volume fraction] 32.8 % Low 34.0-46.4 [facility] Comment on above: Performed By: #### E SR, CBC, CMP, BNP #### [facility] [address] [place] [address] [place] Hemoglobin [Mass/volume] in BloodOrdered By: Lucho Grullon on 02-17-2024 Hemoglobin (Bld) [Mass/Vol] 10.6 g/dL Low 11.8-15.4 [facility] Comment on above: Performed By: #### E SR, CBC, CMP, BNP #### [facility] [address] Hemogram CBC Without Diffon 02-17-2024 Mean Corpuscular HGB Conc 32.3 g/dL Normal 32.0-35.0 [facility] Comment on above: Performed By: #### E SR, CBC, CMP, BNP #### [facility] [address] [place] [address] WBC (Bld) [#/Vol] 10.9 10*3/uL Normal 3.8-11.6 [facility] Comment on above: Performed By: #### E SR, CBC, CMP, BNP #### [address] Leukocytes [#/volume] correc juma for nucleated erythrocytes in Blood by Automated counOrdered By: Lucho Grullon on 02-17-2024 WBC corrected for nucl RBC Auto (Bld) [#/Vol] 10.9 10*3/uL 3.8-11.6 [facility] MCH [Entitic mass] by Automa juma countOrdered By: Lucho Grullon on 02-17-2024 MCH (RBC) [Entitic mass] 24.9 pg Normal 24.7-34.3 [facility] Comment on above: Performed By: #### E SR, CBC, CMP, BNP #### [address] MCHC Auto (RBC) [Mass/Vol]Or dered By: Lucho Grullon on 02-17-2024 MCHC (RBC) [Mass/Vol] 32.3 g/dL 32.0-35.0 [facility] MCV [Entitic volume] by Auto mated countOrdered By: Lucho Grullon on 02-17-2024 MCV (RBC) [Entitic vol] 77.2 fL Low 80-100 [facility] Comment on above: Performed By: #### E SR, CBC, CMP, BNP #### [address] No Panel InformationOrdered By: Lucho Grullon on 02-17-2024 Estimated GFR (CKD-EPI) > 60.0 mL/Min [facility] Creatinine Clearance (Chem 50.21 [facility] Platelet mean volume [Entiti c volume] in Blood by Automated countOrdered By: Juneharini Génesismariza on 02-17-2024 Platelet mean volume (Bld) [Entitic vol] 6.9 fL Normal 6.3-10.7 [facility] Comment on above: Result Comment: PERF ORMED BY: [place] [address] PATHOLOGIST [employer]ING [employer] SUPERVISOR JORGE MURRELL M.D. Performed By: #### E SR, CBC, CMP, BNP #### [facility] [address] [place] [address] Platelets [#/volume] in Bloo d by Automated countOrdered By: Lucho Génesismariza on 02-17-2024 Platelets (Bld) [#/Vol] 370 10*3/uL Normal 150-450 [facility] Comment on above: Performed By: #### E SR, CBC, CMP, BNP #### [facility] [address] [place] [address] [place] Potassium [Moles/volume] in Serum or PlasmaOrdered By: Lucho Génesismariza on 02-17-2024 Potassium [Moles/Vol] 4.2 mmol/L Normal 3.5-5.1 [facility] Comment on above: Performed By: #### E SR, CBC, CMP, BNP #### [facility] [address] [place] [address] Serum or plasma anion gap de terminationOrdered By: Lucho Génesismariza on 02-17-2024 Anion gap [Moles/Vol] 10.8 mmol/L Normal 6.0-15.0 [facility] Comment on above: Performed By: #### E SR, CBC, CMP, BNP #### [place] [address] [place] Sodium [Moles/volume] in Ser um or PlasmaOrdered By: Lucho Génesismariza on 02-17-2024 Sodium [Moles/Vol] 139 mmol/L Normal 136-145 [facility] Comment on above: Performed By: #### E SR, CBC, CMP, BNP #### [address] Urea nitrogen [Mass/volume] in Serum or PlasmaOrdered By: Lucho Grullon on 02-17-2024 Urea nitrogen [Mass/Vol] 8 mg/dL Normal 7-25 [facility] Comment on above: Performed By: #### E SR, CBC, CMP, BNP #### [address] Aerobic Cultureon 02-16-2024 Aerobic Culture Light Normal Respira tory Kimberly 2 Days Gram Stain Result 3+ White Blood Cells 1+ Epithelial Cells 2+ Gram Positive Cocci 1+ Yeast Like Elements PERFORMED BY: [place] [address] PATHOLOGIST LO[employer] SUPERVISOR JORGE MURRELL M.D. Normal [facility] Comment on above: Performed By: #### E SR, CBC, CMP, BNP #### [address] Basic Metabolic Panelon 01-27 Anion gap [Moles/Vol] 9.6 mmol/L Normal 6.0-15.0 [facility] Comment on above: Performed By: #### E SR, CBC, CMP, BNP #### [address] Calcium [Mass/Vol] 8.5 mg/dL Low 8.6-10.3 [facility] Comment on above: Performed By: #### E SR, CBC, CMP, BNP #### [place] [address] [place] Chloride [Moles/Vol] 103 mmol/L Normal 98-107 [facility] Comment on above: Performed By: #### E SR, CBC, CMP, BNP #### [address] CO2 [Moles/Vol] 27.3 mmol/L Normal 21.0-31.0 [facility] Comment on above: Performed By: #### E SR, CBC, CMP, BNP #### [facility] [address] [place] [address] [place] Creatinine [Mass/Vol] 0.92 mg/dL Normal 0.60-1.20 [facility] Comment on above: Performed By: #### E SR, CBC, CMP, BNP #### [facility] [address] [place] [address] [place] Creatinine Clr Calc Pharmacy 47.75 Normal [facility] Comment on above: Result Comment: PERF ORMED BY: [place] [address] PATHOLOGIST [employer] SUPERVISOR JORGE MURRELL M.D. Performed By: #### E SR, CBC, CMP, BNP #### [place] [address] [place] GFR/1.73 sq M.predicted MDRD (S/P/Bld) [Vol rate/Area] mL/min/{1.73_m2} Normal [facility] Comment on above: Performed By: #### E SR, CBC, CMP, BNP #### [place] [address] [place] Glucose [Mass/Vol] 83 mg/dL Normal 70-100 [facility] Comment on above: Result Comment: [place] Glucose Reference Range is dependent on time and content of last meal. Glucose of more than 200 mg/dL in a nonstressed, ambulatory subject supports the diagnosis of Diabetes Mellitus. ADA recommended reference range Performed By: #### E SR, CBC, CMP, BNP #### [facility] [address] [place] [address] [place] Potassium [Moles/Vol] 3.9 mmol/L Normal 3.5-5.1 [facility] Comment on above: Performed By: #### E SR, CBC, CMP, BNP #### [place] [address] [place] Sodium [Moles/Vol] 136 mmol/L Normal 136-145 [facility] Comment on above: Performed By: #### E SR, CBC, CMP, BNP #### [facility] [address] Urea nitrogen [Mass/Vol] 9 mg/dL Normal 7-25 [facility] Comment on above: Performed By: #### E SR, CBC, CMP, BNP #### [address] Gram stain for investigation of transfusion reactionOrdered By: Lucho Grullon on 02-16-2024 Microscopic observation Gram stain Nom (Unsp spec) 1 Day [facility] Hemogram CBC Without Diffon 02-16-2024 Erythrocyte distribution width (RBC) [Ratio] 18.3 % High 11.9-15.3 [facility] Comment on above: Performed By: #### E SR, CBC, CMP, BNP #### [address] Hematocrit (Bld) [Volume fraction] 33.8 % Low 34.0-46.4 [facility] Comment on above: Performed By: #### E SR, CBC, CMP, BNP #### [address] Hemoglobin (Bld) [Mass/Vol] 10.6 g/dL Low 11.8-15.4 [facility] Comment on above: Performed By: #### E SR, CBC, CMP, BNP #### [address] MCH (RBC) [Entitic mass] 24.1 pg Low 24.7-34.3 [facility] Comment on above: Performed By: #### E SR, CBC, CMP, BNP #### [address] MCV (RBC) [Entitic vol] 76.8 fL Low 80-100 [facility] Comment on above: Performed By: #### E SR, CBC, CMP, BNP #### [address] Mean Corpuscular HGB Conc 31.4 g/dL Low 32.0-35.0 [facility] Comment on above: Performed By: #### E SR, CBC, CMP, BNP #### [address] Platelet mean volume (Bld) [Entitic vol] 7.1 fL Normal 6.3-10.7 [facility] Comment on above: Result Comment: PERF ORMED BY: [place] [address] PATHOLOGIST LOADING RACK SUPERVISOR JORGE MURRELL M.D. Performed By: #### E SR, CBC, CMP, BNP #### [address] Platelets (Bld) [#/Vol] 373 10*3/uL Normal 150-450 [facility] Comment on above: Performed By: #### E SR, CBC, CMP, BNP #### [address] RBC (Bld) [#/Vol] 4.41 10*6/uL Normal 3.60-5.00 [facility] Comment on above: Performed By: #### E SR, CBC, CMP, BNP #### [address] WBC (Bld) [#/Vol] 11.1 10*3/uL Normal 3.8-11.6 [facility] Comment on above: Performed By: #### E SR, CBC, CMP, BNP #### [address] Basic Metabolic Panelon 04-2 0-2023 Anion gap [Moles/Vol] 9.8 mmol/L Normal 6.0-15.0 [facility] Comment on above: Performed By: #### E SR, CBC, CMP, BNP #### [address] Calcium [Mass/Vol] 8.4 mg/dL Low 8.6-10.3 [facility] Comment on above: Performed By: #### E SR, CBC, CMP, BNP #### [address] Chloride [Moles/Vol] 103 mmol/L Normal 98-107 [facility] Comment on above: Performed By: #### E SR, CBC, CMP, BNP #### [facility] [address] [place] [address] [place] CO2 [Moles/Vol] 28.7 mmol/L Normal 21.0-31.0 [facility] Comment on above: Performed By: #### E SR, CBC, CMP, BNP #### [facility] [address] [place] [address] [place] Creatinine [Mass/Vol] 1.16 mg/dL Normal 0.60-1.20 [facility] Comment on above: Performed By: #### E SR, CBC, CMP, BNP #### [facility] [address] [place] [address] [place] Creatinine Clr Calc Pharmacy 37.75 Normal [facility] Comment on above: Performed By: #### E SR, CBC, CMP, BNP #### [facility] [address] [place] [address] [place] GFR/1.73 sq M.predicted MDRD (S/P/Bld) [Vol rate/Area] 48.257 mL/min/{1.73_m2} Normal [facility] Comment on above: Performed By: #### E SR, CBC, CMP, BNP #### [address] Glucose [Mass/Vol] 79 mg/dL Normal 70-100 [facility] Comment on above: Result Comment: [place] Glucose Reference Range is dependent on time and content of last meal. Glucose of more than 200 mg/dL in a nonstressed, ambulatory subject supports the diagnosis of Diabetes Mellitus. ADA recommended reference range Performed By: #### E SR, CBC, CMP, BNP #### [facility] [address] [place] [address] [place] Potassium [Moles/Vol] 3.5 mmol/L Normal 3.5-5.1 [facility] Comment on above: Performed By: #### E SR, CBC, CMP, BNP #### [facility] [address] [place] [address] [place] Sodium [Moles/Vol] 138 mmol/L Normal 136-145 [facility] Comment on above: Performed By: #### E SR, CBC, CMP, BNP #### [address] Urea nitrogen [Mass/Vol] 14 mg/dL Normal 7-25 [facility] Comment on above: Performed By: #### E SR, CBC, CMP, BNP #### [address] Clostridioides difficile tox in B tcdB gene [Presence] in Stool by ELIZABETH with probe deteOrdered By: Lucho Grullon on 02-15-2024 C. difficile toxin B tcdB gene ELIZABETH+probe Ql (Stl) Negative Negative [facility] Comment on above: Testing performed by RT-PCR Clostridium Difficileon 01-27 Clostridium Difficile Negative Normal Negative [facility] Comment on above: Order Comment: > or = to 3 loose/watery stools in the last 24 HRS? Y Is patient on promotility agents or tube feeding? N Result Comment: Test ing performed by RT-PCR PERFORMED BY: [place] [address] PATHOLOGIST LOADING [employer] SUPERVISOR JORGE MURRELL M.D. Performed By: #### E SR, CBC, CMP, BNP #### [address] Hemogram CBC Without Diffon 02-15-2024 Erythrocyte distribution width (RBC) [Ratio] 18.2 % High 11.9-15.3 [facility] Comment on above: Performed By: #### E SR, CBC, CMP, BNP #### [address] Hematocrit (Bld) [Volume fraction] 34.6 % Normal 34.0-46.4 [facility] Comment on above: Performed By: #### E SR, CBC, CMP, BNP #### [address] Hemoglobin (Bld) [Mass/Vol] 10.9 g/dL Low 11.8-15.4 [facility] Comment on above: Performed By: #### E SR, CBC, CMP, BNP #### [address] MCH (RBC) [Entitic mass] 24.2 pg Low 24.7-34.3 [facility] Comment on above: Performed By: #### E SR, CBC, CMP, BNP #### [address] MCV (RBC) [Entitic vol] 77.1 fL Low 80-100 [facility] Comment on above: Performed By: #### E SR, CBC, CMP, BNP #### [address] Mean Corpuscular HGB Conc 31.4 g/dL Low 32.0-35.0 [facility] Comment on above: Performed By: #### E SR, CBC, CMP, BNP #### [address] Platelet mean volume (Bld) [Entitic vol] 7.0 fL Normal 6.3-10.7 [facility] Comment on above: Result Comment: PERF ORMED BY: [place] [address] PATHOLOGIST LOADING [employer] SUPERVISOR JORGE MURRELL M.D. Performed By: #### E SR, CBC, CMP, BNP #### [place] [address] [place] Platelets (Bld) [#/Vol] 333 10*3/uL Normal 150-450 [facility] Comment on above: Performed By: #### E SR, CBC, CMP, BNP #### [address] RBC (Bld) [#/Vol] 4.48 10*6/uL Normal 3.60-5.00 [facility] Comment on above: Performed By: #### E SR, CBC, CMP, BNP #### [address] WBC (Bld) [#/Vol] 10.0 10*3/uL Normal 3.8-11.6 [facility] Comment on above: Performed By: #### E SR, CBC, CMP, BNP #### [place] [address] [place] Lactoferrin, Stool WBCon Lactoferrin, Stool WBC LACTOFERRIN Positive for Fecal Lactoferrin Review patient history for chronic inflammatory conditions and status which can cause positive results unrelated to acute infectious disease. -- Reference range = Negative PERFORMED BY: [place] [address] PATHOLOGIST LOADING [employer] SUPERVISOR JORGE MURRELL M.D. Normal [facility] Comment on above: Performed By: #### E SR, CBC, CMP, BNP #### [address] Magnesium [Mass/volume] in S kaveh or PlasmaOrdered By: Lucho Grullon on 02-15-2024 Magnesium [Mass/Vol] 1.5 mg/dL Low 1.9-2.7 [facility] Comment on above: Result Comment: PERF ORMED BY: [place] [address] PATHOLOGIST LOADING [employer] SUPERVISOR JORGE MURRELL M.D. Performed By: #### E SR, CBC, CMP, BNP #### [address] Stool Cultureon 02-15-2024 Stool culture Negative for Shiga T oxin 1 Negative for Shiga Toxin 2 -- A negative Shiga Toxin result may occur if the antigen level in the specimen is below the detection limit of the assay. Stool culture results No Salmonella, Shigella, Campy or E. coli 0157:H7 Isolated PERFORMED BY: [place] [address] PATHOLOGIST LOADING [employer] SUPERVISOR JORGE MURRELL M.D. Normal [facility] Comment on above: Performed By: #### E SR, CBC, CMP, BNP #### [address] Stool bacteria identificatio n by cultureOrdered By: Lucho Grullon on 02-15-2024 Bacteria identified Cx Nom (Stl) [facility] Stool lactoferrin detectionO rdered By: Lucho Grullon on 02-15-2024 Lactoferrin Ql (Stl) [facility] US venous duplex LE RTon US venous duplex LE RT [facility] Main [place] [address] [place] [address] Ultrasound Report Signed Patient: Gera Perdue MR#: [id number] : 1945 Acct:[id number] Age/Sex: 78 / F ADM Date: 02/14/24 Loc: Room: [address] [place] [address] Type: ADM IN Attending Dr: Lucho Grullon [...] Hilario Angulo MD02/15/2024 11:55 AM Dictation Location: [place] [address] Tech: Elizabeth Garcia Transcribed By: ANA 02/15/24 1155 Dictated By: Hilario Angulo MD 02/15/24 1154 Signed By: 02/15/24 1155 Normal [facility] Alanine aminotransferase [En zymatic activity/volume] in Serum or PlasmaOrdered By: Kadie Jones on 02-14-2024 ALT [Catalytic activity/Vol] 5 U/L Low 7-52 [facility] Comment on above: Performed By: #### S CAN CBC, LIPASE, CMP, HS TROP, MG, NORMA #### [facility] [address] [place] [address] [place] Albumin [Mass/volume] in Ser um or Plasma by Bromocresol green (BCG) dye binding methoOrdered By: Kdaie Jones on 02-14-2024 Albumin BCG dye [Mass/Vol] 3.7 g/dL 3.5-5.7 [facility] Alkaline phosphatase [Enzyma tic activity/volume] in Serum or PlasmaOrdered By: Kadie Jones on 02-14-2024 ALP [Catalytic activity/Vol] 75 U/L Normal 34-104 [facility] Comment on above: Performed By: #### S CAN CBC, LIPASE, CMP, HS TROP, MG, NORMA #### [facility] [address] [place] [id number] [place] Amylase [Enzymatic activity/ volume] in Serum or PlasmaOrdered By: Kadie Jones on 02-14-2024 Amylase [Catalytic activity/Vol] 10 U/L Low 29-103 [facility] Comment on above: Performed By: #### S CAN CBC, LIPASE, CMP, HS TROP, MG, NORMA #### [facility] [address] [place] [id number] [place] Aspartate aminotransferase [ Enzymatic activity/volume] in Serum or PlasmaOrdered By: Kadie Jones on 02-14-2024 AST [Catalytic activity/Vol] 11 U/L Low 13-39 [facility] Comment on above: Performed By: #### S CAN CBC, LIPASE, CMP, HS TROP, MG, NORMA #### [address] Automated basophil %Ordered By: Kadie Bullimore on 02-14-2024 Basophils/100 WBC (Bld) 0.9 % Normal . [facility] Comment on above: Performed By: #### S CAN CBC, LIPASE, CMP, HS TROP, MG, NORMA #### [address] Automated basophil countOrde red By: Kadie Bullimore on 02-14-2024 Basophils (Bld) [#/Vol] 0.1 10*3/uL Normal 0.0-0.2 [facility] Comment on above: Result Comment: PERF ORMED BY: [place] [address] PATHOLOGIST LOADING [employer] SUPERVISOR JORGE MURRELL M.D. Performed By: #### S CAN CBC, LIPASE, CMP, HS TROP, MG, NORMA #### [address] Automated blood monocyte cou ntOrdered By: Kadie Bullimore on 02-14-2024 Monocytes (Bld) [#/Vol] 1.7 10*3/uL High 0.0-0.8 [facility] Comment on above: Performed By: #### S CAN CBC, LIPASE, CMP, HS TROP, MG, NORMA #### [address] Automated eosinophil %Ordere d By: Kadie Bullimore on 02-14-2024 Eosinophils/100 WBC (Bld) 0.4 % Normal . [facility] Comment on above: Performed By: #### S CAN CBC, LIPASE, CMP, HS TROP, MG, NORMA #### [address] Automated eosinophil countOr dered By: Kadie Bullimore on 02-14-2024 Eosinophils (Bld) [#/Vol] 0.0 10*3/uL Normal 0.0-0.45 [facility] Comment on above: Performed By: #### S CAN CBC, LIPASE, CMP, HS TROP, MG, NORMA #### [facility] [address] Automated erythrocytes count in urine sediment (number/area)Ordered By: Kadie Jones on 02-14-2024 RBC Auto (Urine sed) [#/Area] 0-1 [HPF] 0-4 [facility] Automated leukocytes count i n urine sediment (number/area)Ordered By: Kadie Hustonore on 02-14-2024 WBC Auto (Urine sed) [#/Area] 50-100 [HPF] 0-4 [facility] Automated monocyte %Ordered By: Kadieruslan Hungjessicaore on 02-14-2024 Monocytes/100 WBC (Bld) 12.3 % Normal . [facility] Comment on above: Performed By: #### S CAN CBC, LIPASE, CMP, HS TROP, MG, NORMA #### [facility] [address] [place] [address] Automated neutrophil %Ordere d By: Kadie Jones on 02-14-2024 Neutrophils/100 WBC (Bld) 62.7 % Normal . [facility] Comment on above: Performed By: #### S CAN CBC, LIPASE, CMP, HS TROP, MG, NORMA #### [facility] [address] [place] [address] Automated urine color determ inationOrdered By: Kadie Jones on 02-14-2024 Color (U) Dark yellow Critically abnormal Yellow [facility] Comment on above: Order Comment: Name Collection Type:: Straight Catheter Performed By: #### E SR, CBC, CMP, BNP #### [facility] [address] [place] [address] BNP ser/plasOrdered By: Bianca Jones on 02-14-2024 Natriuretic peptide B (Bld) [Mass/Vol] 29.0 pg/mL Normal 5-100 [facility] Comment on above: Result Comment: PERF ORMED BY: [place] [address] PATHOLOGIST LOADING [employer] SUPERVISOR JORGE MURRELL M.D. Performed By: #### E SR, CBC, CMP, BNP #### [address] Bilirubin Test strip Ql (U)O rdered By: Kadie Jones on 02-14-2024 Bilirubin Ql (U) Negative Negative [facility] Bilirubin.total [Mass/volume ] in Serum or PlasmaOrdered By: Kadie Jones on 02-14-2024 Bilirubin [Mass/Vol] 0.5 mg/dL Normal 0.3-1.0 [facility] Comment on above: Performed By: #### S CAN CBC, LIPASE, CMP, HS TROP, MG, NORMA #### [address] Blood Cultureon 02-14-2024 Bacteria identified Cx Nom (Bld) NO GROWTH 5 DAYS PERFORMED BY: [place] [address] PATHOLOGIST LOADING [employer] SUPERVISOR JORGE MURRELL M.D. Normal [facility] Comment on above: Performed By: #### E SR, CBC, CMP, BNP #### [address] Bacteria identified Cx Nom (Bld) NO GROWTH 5 DAYS PERFORMED BY: [place] [address] PATHOLOGIST LOADING [employer] SUPERVISOR JORGE MURRELL M.D. Normal [facility] Comment on above: Performed By: #### E SR, CBC, CMP, BNP #### [address] COVID CepheidOrdered By: Abbi Jones on 02-14-2024 SARS-CoV-2 (COVID-19) Ab IA Ql Negative Negative [facility] Comment on above: This is a duplicate Cepheid Xpert Xpress CoV-2/Flu/RSV Plus RNA by RT-PCR result to be used for statistical tracking purpose only. SARS-CoV-2 (COVID-19) RNA ELIZABETH+probe Ql (Unsp spec) [facility] COVID-19 / Flu A/B / RSV [...] or Cepheid Disclaimer revoked sooner. PERFORMED BY: [facility] [place] [address] PATHOLOGIST LOADING RACK SUPERVISOR JORGE Schultz [facility] Comment on above: Performed By: #### E SR, CBC, CMP, BNP #### [facility] [address] abdomen pelvis w conon CT abdomen pelvis w con [facility] Main [place] [address] [place] [address] CT Scan Report Signed Patient: Gera Perdue MR#: [id number] : 1945 Acct:[id number] Age/Sex: 78 / F ADM Date: 02/14/24 Loc: ER Room: Type: [facility] ER Attending Dr: Copies to: CHIP [...] Bhavesh Avendaño M.D.02/14/2024 2:21 PM Dictation Location: [place] [address] Transcribed By: ANA 02/14/24 1421 Dictated By: Bhavesh Avendaño II, MD 02/14/24 1411 Signed By: 02/14/24 1421 Normal [facility] Calcium [Mass/volume] in Ser um or PlasmaOrdered By: Kadie Jones on 02-14-2024 Calcium [Mass/Vol] 9.5 mg/dL Normal 8.6-10.3 [facility] Comment on above: Performed By: #### S CAN CBC, LIPASE, CMP, HS TROP, MG, NORMA #### [facility] [address] Carbon dioxide, total [Moles /volume] in Serum or PlasmaOrdered By: Kadie Jones on 02-14-2024 CO2 [Moles/Vol] 30.8 mmol/L Normal 21.0-31.0 [facility] Comment on above: Performed By: #### S CAN CBC, LIPASE, CMP, HS TROP, MG, NORMA #### [address] Cepheid COVID PCR Negativeon 02-14-2024 SARS-CoV-2 (COVID-19) RNA ELIZABETH+probe Ql (Unsp spec) Negative Normal Negative [facility] Comment on above: Result Comment: This is a duplicate Cepheid Xpert Xpress CoV-2/Flu/RSV Plus RNA by RT-PCR result to be used for statistical tracking purpose only. PERFORMED BY: [place] [address] PATHOLOGIST LOADING R[employer] SUPERVISOR JORGE MURRELL M.D. Performed By: #### E SR, CBC, CMP, BNP #### [address] Chloride [Moles/volume] in S kaveh or PlasmaOrdered By: Kadie Jones on 02-14-2024 Chloride [Moles/Vol] 97 mmol/L Low 98-107 [facility] Comment on above: Performed By: #### S CAN CBC, LIPASE, CMP, HS TROP, MG, NORMA #### [address] Comprehensive Metabolic Pane harsha 02-14-2024 Albumin [Mass/Vol] 3.7 g/dL Normal 3.5-5.7 [facility] Comment on above: Performed By: #### S CAN CBC, LIPASE, CMP, HS TROP, MG, NORMA #### [address] Creatinine Clr Calc Pharmacy 32.86 Normal [facility] Comment on above: Performed By: #### S CAN CBC, LIPASE, CMP, HS TROP, MG, NORMA #### [address] GFR/1.73 sq M.predicted MDRD (S/P/Bld) [Vol rate/Area] 41.325 mL/min/{1.73_m2} Normal [facility] Comment on above: Performed By: #### S CAN CBC, LIPASE, CMP, HS TROP, MG, NORMA #### [address] Creatinine [Mass/volume] in Serum or PlasmaOrdered By: Kadie Jones on 02-14-2024 Creatinine [Mass/Vol] 1.32 mg/dL High 0.60-1.20 [facility] Comment on above: Performed By: #### S CAN CBC, LIPASE, CMP, HS TROP, MG, NORMA #### [address] Dipstick and Microscopicon 0 02-14-2024 Appearance (U) Clear Normal Clear [facility] Comment on above: Order Comment: Name Collection Type:: Straight Catheter Performed By: #### E SR, CBC, CMP, BNP #### [address] Bacteria,Urine 4+ High None Seen [facility] Comment on above: Order Comment: Name Collection Type:: Straight Catheter Performed By: #### E SR, CBC, CMP, BNP #### [address] Bilirubin,Urine Negative Normal Negative [facility] Comment on above: Order Comment: Name Collection Type:: Straight Catheter Performed By: #### E SR, CBC, CMP, BNP #### [address] Glucose Ql (U) Normal Normal Normal [facility] Comment on above: Order Comment: Name Collection Type:: Straight Catheter Performed By: #### E SR, CBC, CMP, BNP #### [address] Hyaline Casts,Urine 9-19 High 0-8 [facility] Comment on above: Order Comment: Name Collection Type:: Straight Catheter Result Comment: PERF ORMED BY: [place] [address] PATHOLOGIST LOADING [employer] SUPERVISOR JORGE MURRELL M.D. Performed By: #### E SR, CBC, CMP, BNP #### [address] Ketones Ql (U) Trace High Negative [facility] Comment on above: Order Comment: Name Collection Type:: Straight Catheter Performed By: #### E SR, CBC, CMP, BNP #### [address] Leukocyte esterase Test strip Ql (U) 3+ High Negative [facility] Comment on above: Order Comment: Name Collection Type:: Straight Catheter Performed By: #### E SR, CBC, CMP, BNP #### [address] Nitrite,Urine Positive High Negative [facility] Comment on above: Order Comment: Name Collection Type:: Straight Catheter Performed By: #### E SR, CBC, CMP, BNP #### [address] Occult Blood,Urine Trace High Negative [facility] Comment on above: Order Comment: Name Collection Type:: Straight Catheter Result Comment: PERF ORMED BY: [place] [address] PATHOLOGIST LOADING RACK SUPERVISOR JORGE MURRELL M.D. Performed By: #### E SR, CBC, CMP, BNP #### [address] RBC LM.HPF (Urine sed) [#/Area] 0 /[HPF] Normal 0-4 [facility] Comment on above: Order Comment: Name Collection Type:: Straight Catheter Performed By: #### E SR, CBC, CMP, BNP #### [address] Specificy [place],Urine 1.024 Normal 1.001-1.03 0 [facility] Comment on above: Order Comment: Name Collection Type:: Straight Catheter Performed By: #### E SR, CBC, CMP, BNP #### [address] Squamous Epithelial Cell,Urine None Seen Normal 0-2 [facility] Comment on above: Order Comment: Name Collection Type:: Straight Catheter Performed By: #### E SR, CBC, CMP, BNP #### [address] Urobilinogen,Urine Normal Normal Normal [facility] Comment on above: Order Comment: Name Collection Type:: Straight Catheter Performed By: #### E SR, CBC, CMP, BNP #### [address] WBC,Urine 50-100 High 0-4 [facility] Comment on above: Order Comment: Name Collection Type:: Straight Catheter Performed By: #### E SR, CBC, CMP, BNP #### [address] ECG 12 lead ECGon 02-14-2024 ECG 12 lead ECG [facility] Main [place] [address] [place] [address] Electrocardiograph Report Signed Patient: Gera Perdue MR#: [id number] : 1945 Acct:[id number] Age/Sex: 78 / F ADM Date: 02/14/24 Loc: ER Room: Type: [facility] ER Attending Dr: Ordering Provider: [...] was found Confirmed by MARSHALL DOMINGUEZ DO ([id number]) on 02/14/2024 3:23:36 PM Referred By: Electronically Signed By:MARSHALL DOMINGUEZ DO Transcribed By: MUS Signed By Marshall Dominguez DO 02/13 1523 Normal [facility] Erythrocyte distribution wid th [Ratio] by Automated countOrdered By: Kadie Jones on 02-14-2024 Erythrocyte distribution width (RBC) [Ratio] 18.4 % High 11.9-15.3 [facility] Comment on above: Performed By: #### S CAN CBC, LIPASE, CMP, HS TROP, MG, NORMA #### [facility] [address] Erythrocytes [#/volume] in B lood by Automated countOrdered By: Kadie Jones on 02-14-2024 RBC (Bld) [#/Vol] 5.04 10*6/uL High 3.60-5.00 [facility] Comment on above: Performed By: #### S CAN CBC, LIPASE, CMP, HS TROP, MG, NORMA #### [facility] [address] Glucose [Mass/volume] in Ser um or PlasmaOrdered By: Kadie Jones on 02-14-2024 Glucose [Mass/Vol] 85 mg/dL Normal 70-100 [facility] Comment on above: ADA recommended refe rence rangeRandom Glucose Reference Range is dependent on time and content of last meal. Glucose of more than 200 mg/dL in a nonstressed, ambulatory subject supports the diagnosis of Diabetes Mellitus. Result Comment: [place] om Glucose Reference Range is dependent on time and content of last meal. Glucose of more than 200 mg/dL in a nonstressed, ambulatory subject supports the diagnosis of Diabetes Mellitus. ADA recommended reference range Performed By: #### S CAN CBC, LIPASE, CMP, HS TROP, MG, NORMA #### [facility] [address] Hematocrit [Volume Fraction] of Blood by Automated countOrdered By: Kadie Jones on 02-14-2024 Hematocrit (Bld) [Volume fraction] 38.5 % Normal 34.0-46.4 [facility] Comment on above: Performed By: #### S CAN CBC, LIPASE, CMP, HS TROP, MG, NORMA #### [facility] [address] Hemoglobin [Mass/volume] in BloodOrdered By: Kadie Jones on 02-14-2024 Hemoglobin (Bld) [Mass/Vol] 12.2 g/dL Normal 11.8-15.4 [facility] Comment on above: Performed By: #### S CAN CBC, LIPASE, CMP, HS TROP, MG, NORMA #### [facility] [address] [place] [address] Ketones Auto test strip (U) [Mass/Vol]Ordered By: Kadie Jones on 02-14-2024 Ketones (U) [Mass/Vol] Trace Negative [facility] - UrinalysisOrder ed By: Kadie Jones on 02-14-2024 Hyaline casts LM Ql (Urine sed) 9 [LPF] 0-8 [facility] Lactate [Moles/volume] in Se rum or PlasmaOrdered By: Kadie Jones on 02-14-2024 Lactate [Moles/Vol] 0.8 mmol/L Normal 0.5-2.2 [facility] Comment on above: Result Comment: PERF ORMED BY: [place] [address] PATHOLOGIST LOADING RACK SUPERVISOR JORGE MURRELL M.D. Performed By: #### E SR, CBC, CMP, BNP #### [facility] [address] [place] [address] Leukocytes [#/volume] correc juma for nucleated erythrocytes in Blood by Automated counOrdered By: Kadie Jones on 02-14-2024 WBC corrected for nucl RBC Auto (Bld) [#/Vol] 13.6 10*3/uL 3.8-11.6 [facility] Leukocytes [#/volume] in Blo od by Automated countOrdered By: Kadieruslan Jones on 02-14-2024 WBC (Bld) [#/Vol] 13.6 10*3/uL High 3.8-11.6 [facility] Comment on above: Performed By: #### S CAN CBC, LIPASE, CMP, HS TROP, MG, NORMA #### [facility] [address] [place] [address] Lipase [Enzymatic activity/v olume] in Serum or PlasmaOrdered By: Kadie Jones on 02-14-2024 Lipase [Catalytic activity/Vol] 6.0 U/L Low 11.0-82.0 [facility] Comment on above: Result Comment: PERF ORMED BY: [place] [address] PATHOLOGIST LOADING RACK SUPERVISOR JORGE MURRELL M.D. Performed By: #### S CAN CBC, LIPASE, CMP, HS TROP, MG, NORMA #### [address] Lymphocytes [#/volume] in Bl ood by Automated countOrdered By: Kadie Jones on 02-14-2024 Lymphocytes (Bld) [#/Vol] 3.2 10*3/uL Normal 1.00-4.8 [facility] Comment on above: Performed By: #### S CAN CBC, LIPASE, CMP, HS TROP, MG, NORMA #### [address] Lymphocytes/100 leukocytes i n Blood by Automated countOrdered By: Kadie Jones on 02-14-2024 Lymphocytes/100 WBC (Bld) 23.7 % Normal . [facility] Comment on above: Performed By: #### S CAN CBC, LIPASE, CMP, HS TROP, MG, NORMA #### [address] MCH [Entitic mass] by Automa juma countOrdered By: Kadie Jones on 02-14-2024 MCH (RBC) [Entitic mass] 24.3 pg Low 24.7-34.3 [facility] Comment on above: Performed By: #### S CAN CBC, LIPASE, CMP, HS TROP, MG, NORMA #### [facility] [address] [place] [address] MCHC Auto (RBC) [Mass/Vol]Or dered By: Kadie Bullimore on 02-14-2024 MCHC (RBC) [Mass/Vol] 31.8 g/dL 32.0-35.0 [facility] MCV [Entitic volume] by Auto mated countOrdered By: Kadie Jones on 02-14-2024 MCV (RBC) [Entitic vol] 76.4 fL Low 80-100 [facility] Comment on above: Performed By: #### S CAN CBC, LIPASE, CMP, HS TROP, MG, NORMA #### [facility] [address] [place] [address] Magnesium [Mass/volume] in S kaveh or PlasmaOrdered By: Kadie Hustonore on 02-14-2024 Magnesium [Mass/Vol] 1.1 mg/dL Low 1.9-2.7 [facility] Comment on above: Performed By: #### S CAN CBC, LIPASE, CMP, HS TROP, MG, NORMA #### [facility] [address] [place] [address] Monocyte distribution width [Entitic volume] in Blood by AutomatedOrdered By: Kadie Jones on 02-14-2024 Monocyte distribution width Auto (Bld) [Entitic vol] 25.16 % 0.00-20.00 [facility] Comment on above: For adults in ED, MD W > 20.0 may be associated with a higher risk of sepsis during the first 12 hrs of hospital admission Neutrophils [#/volume] in Bl ood by Automated countOrdered By: Kadie Jones on 02-14-2024 Neutrophils (Bld) [#/Vol] 8.5 10*3/uL High 1.8-7.7 [facility] Comment on above: Performed By: #### S CAN CBC, LIPASE, CMP, HS TROP, MG, NORMA #### [facility] [address] [place] [address] Nitrite Test strip Ql (U)Ord ered By: Kadie Jones on 02-14-2024 Nitrite Ql (U) Positive Negative [facility] No Panel InformationOrdered By: Kadie Jones on 02-14-2024 Estimated GFR (CKD-EPI) 41.325 mL/Min [facility] Creatinine Clearance (Chem 32.86 [facility] Nucleated erythrocytes [Pres ence] in Blood by Automated countOrdered By: Kadie Jones on 02-14-2024 Nucleated RBC Auto Ql (Bld) 0.1 /100{WBC} 0-0.5 [facility] Platelet adequacy [Presence] in Blood by Light microscopyOrdered By: Kadie Jones on 02-14-2024 Platelets LM Ql (Bld) Normal Normal [facility] Platelet mean volume [Entiti c volume] in Blood by Automated countOrdered By: Kadie Jones on 02-14-2024 Platelet mean volume (Bld) [Entitic vol] 7.0 fL Normal 6.3-10.7 [facility] Comment on above: Performed By: #### S CAN CBC, LIPASE, CMP, HS TROP, MG, NORMA #### [facility] [address] Platelet morphology finding [Identifier] in BloodOrdered By: Kadie Jones on 02-14-2024 Platelet morphology finding Nom (Bld) Normal Normal [facility] Platelets [#/volume] in Bloo d by Automated countOrdered By: Kadie Jones on 02-14-2024 Platelets (Bld) [#/Vol] 448 10*3/uL Normal 150-450 [facility] Comment on above: Performed By: #### S CAN CBC, LIPASE, CMP, HS TROP, MG, NORMA #### [facility] [address] [place] [address] [place] Potassium [Moles/volume] in Serum or PlasmaOrdered By: Kadie Jones on 02-14-2024 Potassium [Moles/Vol] 4.0 mmol/L Normal 3.5-5.1 [facility] Comment on above: Performed By: #### S CAN CBC, LIPASE, CMP, HS TROP, MG, NORMA #### [facility] [address] [place] [address] [place] Protein [Mass/volume] in Ser um or PlasmaOrdered By: Kadie Jones on 02-14-2024 Protein [Mass/Vol] 7.9 g/dL Normal 6.4-8.9 [facility] Comment on above: Performed By: #### S CAN CBC, LIPASE, CMP, HS TROP, MG, NORMA #### [facility] [address] [place] [address] [place] RBC morphologyOrdered By: Jeannie Jones on 02-14-2024 RBC morphology finding Nom (Bld) Normal Normal Normal [facility] Comment on above: Performed By: #### S CAN CBC, LIPASE, CMP, HS TROP, MG, NORMA #### [address] Scan and CBCon 02-14-2024 Mean Corpuscular HGB Conc 31.8 g/dL Low 32.0-35.0 [facility] Comment on above: Performed By: #### S CAN CBC, LIPASE, CMP, HS TROP, MG, NORMA #### [address] Monocytes/100 WBC (Bld) 25.16 % High 0.00-20.00 [facility] Comment on above: Result Comment: For adults in ED, MDW > 20.0 may be associated with a higher risk of sepsis during the first 12 hrs of hospital admission Performed By: #### S CAN CBC, LIPASE, CMP, HS TROP, MG, NORMA #### [address] NRBC% 0.1 /100{WBC} Normal 0-0.5 [facility] Comment on above: Performed By: #### S CAN CBC, LIPASE, CMP, HS TROP, MG, NORMA #### [address] Platelet Estimate Normal Normal Normal [facility] Comment on above: Performed By: #### S CAN CBC, LIPASE, CMP, HS TROP, MG, NORMA #### [address] Platelet Morphology Normal Normal Normal [facility] Comment on above: Result Comment: PERF ORMED BY: [place] [address] PATHOLOGIST LOADING RACK SUPERVISOR JORGE MURRELL M.D. Performed By: #### S CAN CBC, LIPASE, CMP, HS TROP, MG, NORMA #### [address] Serum globulin measurement b y calculation (mass/volume)Ordered By: Kadie Jones on 02-14-2024 Globulin (S) [Mass/Vol] 4.2 g/dL [facility] Comment on above: Performed By: #### S CAN CBC, LIPASE, CMP, HS TROP, MG, NORMA #### [facility] [address] Serum or plasma albumin/glob ulin mass ratioOrdered By: Kadie Hustonore on 02-14-2024 Albumin/Globulin [Mass ratio] 0.9 {ratio} [facility] Comment on above: Performed By: #### S CAN CBC, LIPASE, CMP, HS TROP, MG, NORMA #### [facility] [address] [place] [address] Serum or plasma anion gap de terminationOrdered By: Kadie Jones on 02-14-2024 Anion gap [Moles/Vol] 14.2 mmol/L Normal 6.0-15.0 [facility] Comment on above: Performed By: #### S CAN CBC, LIPASE, CMP, HS TROP, MG, NORMA #### [address] Sodium [Moles/volume] in Ser um or PlasmaOrdered By: Kadie Jones on 02-14-2024 Sodium [Moles/Vol] 138 mmol/L Normal 136-145 [facility] Comment on above: Performed By: #### S CAN CBC, LIPASE, CMP, HS TROP, MG, NORMA #### [facility] [address] [place] [address] Specific gravity Auto test s trip (U) [Rel density]Ordered By: Kadie Jones on 02-14-2024 Specific gravity (U) [Rel density] 1.024 1.001-1.03 0 [facility] Squamous epithelial cells de tection in urine sediment by light microscopyOrdered By: Kadie Jonse on 02-14-2024 Epithelial cells.squamous LM Ql (Urine sed) None seen [HPF] 0-2 [facility] Troponin I High Sensitivityo n 02-14-2024 Troponin I High Sensitivity 6.5 pg/mL Normal 0.0-15.0 [facility] Comment on above: Result Comment: PERF ORMED BY: [address] [place] [address] PATHOLOGIST LOADING RACK SUPERVISOR JORGE MURRELL M.D. Performed By: #### S CAN CBC, LIPASE, CMP, HS TROP, MG, NORMA #### [address] Troponin I.cardiac [Mass/vol ume] in Serum or Plasma by Detection limit <= 0.01 ng/Ordered By: Kadie Jones on 02-14-2024 Troponin I.cardiac DL <= 0.01 ng/mL [Mass/Vol] 6.5 pg/mL 0.0-15.0 [facility] Urea nitrogen [Mass/volume] in Serum or PlasmaOrdered By: Kadie Jones on 02-14-2024 Urea nitrogen [Mass/Vol] 18 mg/dL Normal 7-25 [facility] Comment on above: Performed By: #### S PARVEZ CBC, LIPASE, CMP, HS TROP, MG, NORMA #### [address] Urine Cultureon 02-14-2024 Bacteria identified Cx Nom (U) ORGANISM: Klebsiella pneumoniae (O:KLEPNE) [place] Count >100,000 Aerobic NATALIA Charge (NMIC56) SUSCEPTIBILITY [...] RESISTANT TO ALL B-LACTAM DRUGS. PERFORMED BY: [place] [address] PATHOLOGIST LOADING RACK SUPERVISOR JORGE MURRELL M.D. Normal [facility] Comment on above: Performed By: #### E SR, CBC, CMP, BNP #### [address] Urine bacteria detection by automated methodOrdered By: Kadie Jones on 02-14-2024 Bacteria Auto Ql (U) 4+ None Seen [facility] Urine clarity by refractomet ry automatedOrdered By: Kadie Jones on 02-14-2024 Clarity Refractometry automated (U) Clear Clear [facility] Urine culture routineOrdered By: Kadie Jones on 02-14-2024 Bacteria identified Cx Nom (U) Klebsiella pneumoniae [facility] Urine glucose measurement by automated test strip (mass/volume)Ordered By: Kadie Jones on 02-14-2024 Glucose Auto test strip (U) [Mass/Vol] Normal mg/dL Normal [facility] Urine hemoglobin detection b y automated test stripOrdered By: Kadie Jones on 02-14-2024 Hemoglobin Auto test strip Ql (U) Trace Negative [facility] Urine leukocyte esterase det ection by automated test stripOrdered By: Kadie Jones on 02-14-2024 Leukocyte esterase Auto test strip Ql (U) 3+ Negative [facility] Urine pH measurement by auto mated test stripOrdered By: Kadie Jones on 02-14-2024 pH (U) 5.5 [pH] Normal 5.0-9.0 [facility] Comment on above: Order Comment: Name Collection Type:: Straight Catheter Performed By: #### E SR, CBC, CMP, BNP #### [facility] [address] Urine protein measurement by automated test strip (mass/volume)Ordered By: Kadie Jones on 02-14-2024 Protein (U) [Mass/Vol] 30 mg/dL High Negative [facility] Comment on above: Order Comment: Name Collection Type:: Straight Catheter Performed By: #### E SR, CBC, CMP, BNP #### [facility] [address] Urobilinogen Auto test strip (U) [Mass/Vol]Ordered By: Kadie Jones on 02-14-2024 Urobilinogen (U) [Mass/Vol] Normal mg/dL Normal [facility] XR chest 1V portableon 02-13 XR chest 1V portable [facility] Main [place] [address] [place] [address] XRay Report Signed Patient: Gera Perdue MR#: [id number] : 1945 Acct:[id number] Age/Sex: 78 / F ADM Date: 02/14/24 Loc: ER Room: Type: [facility] ER Attending Dr: Copies to: CHIP [...] Bhavesh Avendaño M.D.02/14/2024 12:59 PM Dictation Location: [place] [address] Transcribed By: [facility] 02/14/24 1259 Dictated By: Bhavesh Avendaño II, MD 02/14/24 1257 Signed By: 02/14/24 1259 Normal [facility] C Urineon 02-01-2024 Bacteria identified [...] Locations R1: This test was performed at: [facility], [address] [place] [address], [facility]- , , [facility] Comment on above: Performed By: #### 2 [id number] #### [facility] [address] [place] [address] Formson 01-31-2024 Forms [id number] Normal [facility] Physician Referralon 024 Physician Referral [id number] [facility] Ambulatory Visit Summaryon 0 01-30-2024 Ambulatory Visit Summary GERA PERDUE :1945 Visit Date:01/30/2024 Ambulatory Visit Instructions Your Diagnosis Chronic kidney disease (CKD), stage III (moderate) Female incontinence Your Care Team Attending Physician - Orzech HEALTH ECONOMIST, SANITATION ASSOCIATE-C, Renae X Primary Care Physician - GUSTAVO [...] Atherosclerosis of aorta Atherosclerotic heart disease of minto coronary artery without angina pectoris Carotid stenosis [...] for choosing us for your care. Antoine [facility] Patient Educationon 01-30-20 Patient Education Obstetrics [...] this condition includes: ? Antibiotic medicine. ? Jonu-ibp-xkhwgzy medicines to treat discomfort. ? Drinking enough [...] these instructions at home: Medicines ? Take bvkp-fgr-xdzewrv and prescription medicines only as told by [...] Document Revie (more content not included)... Normal [facility] Urology Office/Clinic Noteon 01-30-2024 Urology Office/Clinic Note Chief Complaint Roll Up Operator referal for incontinence HPI Staff 78 year old female referred by Dr. Salas for incontinence. Micro UA done 12/30/23. She states she thought she seen Dr. Croft before (nothing on [employer]) she just knows it was a long time ago Started at [facility] September with UTI and was transferred to [facility] in October is when [...] with voice recognition artificial intelligence software, specifically Backchat, Axial Exchange and or Policard. Substitutions may have occurred due to the [...] our office. Rx sent to [facility] in [place]. - Start antibiotics today - Send urine for culture Ordered: cephalexin, 500 mg = 1 cap(s), Oral, q12hr, X 7 day(s), # 14 cap(s), Refills(s) 0, Pharmacy: [id number], 170, cm, 01/30/24 13:39:00 EDT, [...] reevaluate after procedure Ordered: Urine Culture Orders: [id number] Measure Post Void residual urine and/or bladder capacity by US- non-imaging Urnls Dip Stick Auto w/o Microscopy POC 09791 Urnls Dip Stick Auto w/o Microscopy POC 92539 Follow-up With When Contact Information CHIP Ponce APRN, Renae Delaney, FAM, URL Additional Instruction (more content not included)... Normal [facility] Comment on above: Result Comment: Elec tronically Signed By: CHIP Ponce APRN, Aurora X\.br\Date and Time Signed: 01/30/24 14:52 EDT TRANSTHORACIC ECHO (TTE) COM PLETEon 01-27-2024 TRANSTHORACIC ECHO (TTE) COMPLETE [address], [address] [place] [address] TRANSTHORACIC ECHOCARDIOGRAM REPORT Patient Name: GERA Durham IRON Hernandez Physician: [id number] Seth Barnes MD, [facility] Study Date: 01/27/2024 Ordering Provider: [id number] JENNA NEGLE MRN/PID: [id number] Fellow: Nurse: Date of /Age: 1 1945 / 78 years Knowledge Analyst: Inessa Roche RDCS, T Gender: F Additional Staff: Height: 162.56 cm Admit Date: Weight: 87.09 kg Admission Status: BSA / BMI: 1.92 m2 / 32.96 kg/m2 Department Location: [facility] Blood Pressure: 126 /78 mmHg Study Type: TRANSTHORACIC ECHO (TTE) COMPLETE Diagnosis/ICD: Shortness of breath-R06.02 Indication: History of PEA-09/2023, CAD, PTCA-04/2019, COPD, HTN, Hyperlipidemia, Tobacco Abuse, Hypoxemia, Sid, CKD-Stage III, Anemia CPT Codes: Echo Complete w Full Doppler-[id number] Study Detail: The following Echo studies were [...] 1.1 m/s (0.6-0.9m/s) PV Max P.5 mmHg [id number] Seth Barnes MD, [facility] Electronically signed on 01/29/2024 at 7:26:59 PM Final Normal [facility] Alanine aminotransferase [En zymatic activity/volume] in Serum or PlasmaOrdered By: Jenna Engle on 01-06-2024 ALT [Catalytic activity/Vol] 19 U/L Normal 7-52 [facility] Comment on above: Performed By: #### E SR, CBC, CMP, BNP #### [address] Albumin [Mass/volume] in Ser um or Plasma by Bromocresol green (BCG) dye binding methoOrdered By: Jenna Engle on 01-06-2024 Albumin BCG dye [Mass/Vol] 3.9 g/dL 3.5-5.7 [facility] Alkaline phosphatase [Enzyma tic activity/volume] in Serum or PlasmaOrdered By: Jenna Engle on 01-06-2024 ALP [Catalytic activity/Vol] 66 U/L Normal 34-104 [facility] Comment on above: Result Comment: PERF ORMED BY: [place] [address] PATHOLOGIST LOADING RACK SUPERVISOR JORGE MURRELL M.D. Performed By: #### E SR, CBC, CMP, BNP #### [address] Aspartate aminotransferase [ Enzymatic activity/volume] in Serum or PlasmaOrdered By: Jenna Engle on 01-06-2024 AST [Catalytic activity/Vol] 22 U/L Normal 13-39 [facility] Comment on above: Performed By: #### E SR, CBC, CMP, BNP #### [address] Automated basophil %Ordered By: Jenna Engle on 01-06-2024 Basophils/100 WBC (Bld) 0.4 % Normal . [facility] Comment on above: Performed By: #### E SR, CBC, CMP, BNP #### [address] Automated basophil countOrde red By: Jenna Engle on 01-06-2024 Basophils (Bld) [#/Vol] 0.1 10*3/uL Normal 0.0-0.2 [facility] Comment on above: Performed By: #### E SR, CBC, CMP, BNP #### [address] Automated blood monocyte cou ntOrdered By: Jenna Engle on 01-06-2024 Monocytes (Bld) [#/Vol] 1.2 10*3/uL High 0.0-0.8 [facility] Comment on above: Performed By: #### E SR, CBC, CMP, BNP #### [address] Automated eosinophil %Ordere d By: Jenna Engle on 01-06-2024 Eosinophils/100 WBC (Bld) 0.9 % Normal . [facility] Comment on above: Performed By: #### E SR, CBC, CMP, BNP #### [address] Automated eosinophil countOr dered By: Jenna Engle on 01-06-2024 Eosinophils (Bld) [#/Vol] 0.1 10*3/uL Normal 0.0-0.45 [facility] Comment on above: Performed By: #### E SR, CBC, CMP, BNP #### [address] Automated monocyte %Ordered By: Jenna Engle on 01-06-2024 Monocytes/100 WBC (Bld) 8.7 % Normal . [facility] Comment on above: Performed By: #### E SR, CBC, CMP, BNP #### [address] Automated neutrophil %Ordere d By: Jenna Engle on 01-06-2024 Neutrophils/100 WBC (Bld) 59.8 % Normal . [facility] Comment on above: Performed By: #### E SR, CBC, CMP, BNP #### [address] BNP ser/plasOrdered By: Gisel Engle on 01-06-2024 Natriuretic peptide B (Bld) [Mass/Vol] 358.0 pg/mL High 5-100 [facility] Comment on above: Result Comment: PERF ORMED BY: [place] [address] PATHOLOGIST LOADING RACK SUPERVISOR JORGE MURRELL M.D. Performed By: #### E SR, CBC, CMP, BNP #### [address] Bilirubin.total [Mass/volume ] in Serum or PlasmaOrdered By: Jenna Engle on 01-06-2024 Bilirubin [Mass/Vol] 0.3 mg/dL Normal 0.3-1.0 [facility] Comment on above: Performed By: #### E SR, CBC, CMP, BNP #### [facility] [address] [place] [address] Calcium [Mass/volume] in Ser um or PlasmaOrdered By: Jenna Engle on 01-06-2024 Calcium [Mass/Vol] 9.5 mg/dL Normal 8.6-10.3 [facility] Comment on above: Performed By: #### E SR, CBC, CMP, BNP #### [address] Carbon dioxide, total [Moles /volume] in Serum or PlasmaOrdered By: Jenna Engle on 01-06-2024 CO2 [Moles/Vol] 31.7 mmol/L High 21.0-31.0 [facility] Comment on above: Performed By: #### E SR, CBC, CMP, BNP #### [address] Chloride [Moles/volume] in S kaveh or PlasmaOrdered By: Jenna Engle on 01-06-2024 Chloride [Moles/Vol] 108 mmol/L High 98-107 [facility] Comment on above: Performed By: #### E SR, CBC, CMP, BNP #### [address] Complete Blood Count Auto Di ffon 01-06-2024 Mean Corpuscular HGB Conc 31.6 g/dL Low 32.0-35.0 [facility] Comment on above: Performed By: #### E SR, CBC, CMP, BNP #### [address] NRBC% 0.0 /100{WBC} Normal 0-0.5 [facility] Comment on above: Performed By: #### E SR, CBC, CMP, BNP #### [address] Comprehensive Metabolic Pane harsha 01-06-2024 Albumin [Mass/Vol] 3.9 g/dL Normal 3.5-5.7 [facility] Comment on above: Performed By: #### E SR, CBC, CMP, BNP #### [address] GFR/1.73 sq M.predicted MDRD (S/P/Bld) [Vol rate/Area] 47.277 mL/min/{1.73_m2} Normal [facility] Comment on above: Performed By: #### E SR, CBC, CMP, BNP #### [address] Creatinine [Mass/volume] in Serum or PlasmaOrdered By: Jenna Engle on 01-06-2024 Creatinine [Mass/Vol] 1.18 mg/dL Normal 0.60-1.20 [facility] Comment on above: Performed By: #### E SR, CBC, CMP, BNP #### [address] ECG 12 Leadon 01-06-2024 [facility] Work Phone: Normal sinus rhythm at 62 bpm [place] interval 170 ms QRS duration 80 ms QTc 401 ms. [facility] Work Phone: [facility] Work Phone: Erythrocyte Sedimentation Ra jami 01-06-2024 ESR (Bld) [Velocity] 34 mm/h High 0-29 [facility] Comment on above: Result Comment: PERF ORMED BY: [place] [address] PATHOLOGIST LOADING RACK SUPERVISOR JORGE MURRELL M.D. Performed By: #### E SR, CBC, CMP, BNP #### [address] Erythrocyte distribution wid th [Ratio] by Automated countOrdered By: Jenna Engle on 01-06-2024 Erythrocyte distribution width (RBC) [Ratio] 20.0 % High 11.9-15.3 [facility] Comment on above: Performed By: #### E SR, CBC, CMP, BNP #### [address] Erythrocyte sedimentation ra te by Photometric methodOrdered By: Jenna Engle on 01-06-2024 ESR Photometric method (Bld) [Velocity] 34 mm/hr 0-29 [facility] Erythrocytes [#/volume] in B lood by Automated countOrdered By: Jenna Engle on 01-06-2024 RBC (Bld) [#/Vol] 4.54 10*6/uL Normal 3.60-5.00 [facility] Comment on above: Performed By: #### E SR, CBC, CMP, BNP #### [facility] [address] Glucose [Mass/volume] in Ser um or PlasmaOrdered By: Jenna Engle on 01-06-2024 Glucose [Mass/Vol] 85 mg/dL Normal 70-100 [facility] Comment on above: ADA recommended refe rence rangeRandom Glucose Reference Range is dependent on time and content of last meal. Glucose of more than 200 mg/dL in a nonstressed, ambulatory subject supports the diagnosis of Diabetes Mellitus. Result Comment: [place] om Glucose Reference Range is dependent on time and content of last meal. Glucose of more than 200 mg/dL in a nonstressed, ambulatory subject supports the diagnosis of Diabetes Mellitus. ADA recommended reference range Performed By: #### E SR, CBC, CMP, BNP #### [facility] [address] Hematocrit [Volume Fraction] of Blood by Automated countOrdered By: Jenna Engle on 01-06-2024 Hematocrit (Bld) [Volume fraction] 35.7 % Normal 34.0-46.4 [facility] Comment on above: Performed By: #### E SR, CBC, CMP, BNP #### [facility] [address] Hemoglobin [Mass/volume] in BloodOrdered By: Jenna Engle on 01-06-2024 Hemoglobin (Bld) [Mass/Vol] 11.3 g/dL Low 11.8-15.4 [facility] Comment on above: Performed By: #### E SR, CBC, CMP, BNP #### [facility] [address] [place] [address] [place] Leukocytes [#/volume] correc juma for nucleated erythrocytes in Blood by Automated counOrdered By: Jenna Engle on 01-06-2024 WBC corrected for nucl RBC Auto (Bld) [#/Vol] 14.2 10*3/uL 3.8-11.6 [facility] Leukocytes [#/volume] in Blo od by Automated countOrdered By: Jenna Engle on 01-06-2024 WBC (Bld) [#/Vol] 14.2 10*3/uL High 3.8-11.6 [facility] Comment on above: Performed By: #### E SR, CBC, CMP, BNP #### [facility] [address] [place] [address] [place] Lymphocytes [#/volume] in Bl ood by Automated countOrdered By: Jenna Engle on 01-06-2024 Lymphocytes (Bld) [#/Vol] 4.3 10*3/uL Normal 1.00-4.8 [facility] Comment on above: Performed By: #### E SR, CBC, CMP, BNP #### [facility] [address] [place] [address] [place] Lymphocytes/100 leukocytes i n Blood by Automated countOrdered By: Jenna Engle on 01-06-2024 Lymphocytes/100 WBC (Bld) 30.2 % Normal . [facility] Comment on above: Performed By: #### E SR, CBC, CMP, BNP #### [facility] [address] [place] [address] MCH [Entitic mass] by Automa juma countOrdered By: Jenna Engle on 01-06-2024 MCH (RBC) [Entitic mass] 24.9 pg Normal 24.7-34.3 [facility] Comment on above: Performed By: #### E SR, CBC, CMP, BNP #### [facility] [address] [place] [address] [place] MCHC Auto (RBC) [Mass/Vol]Or dered By: Jenna Engle on 01-06-2024 MCHC (RBC) [Mass/Vol] 31.6 g/dL 32.0-35.0 [facility] MCV [Entitic volume] by Auto mated countOrdered By: Jenna Engle on 01-06-2024 MCV (RBC) [Entitic vol] 78.7 fL Low 80-100 [facility] Comment on above: Performed By: #### E SR, CBC, CMP, BNP #### [facility] [address] [place] [address] Neutrophils [#/volume] in Bl ood by Automated countOrdered By: Jenna Engle on 01-06-2024 Neutrophils (Bld) [#/Vol] 8.5 10*3/uL High 1.8-7.7 [facility] Comment on above: Performed By: #### E SR, CBC, CMP, BNP #### [facility] [address] [place] [address] No Panel InformationOrdered By: Jenna Engle on 01-06-2024 Estimated GFR (CKD-EPI) 47.277 mL/Min [facility] Creatinine Clearance (Chem N/A [facility] Nucleated erythrocytes [Pres ence] in Blood by Automated countOrdered By: Jenna Engle on 01-06-2024 Nucleated RBC Auto Ql (Bld) 0.0 /100{WBC} 0-0.5 [facility] Platelet mean volume [Entiti c volume] in Blood by Automated countOrdered By: Jenna Engle on 01-06-2024 Platelet mean volume (Bld) [Entitic vol] 7.2 fL Normal 6.3-10.7 [facility] Comment on above: Performed By: #### E SR, CBC, CMP, BNP #### [facility] [address] [place] [address] Platelets [#/volume] in Bloo d by Automated countOrdered By: Jenna Engle on 01-06-2024 Platelets (Bld) [#/Vol] 330 10*3/uL Normal 150-450 [facility] Comment on above: Performed By: #### E SR, CBC, CMP, BNP #### [facility] [address] [place] [address] Potassium [Moles/volume] in Serum or PlasmaOrdered By: Jenna Engle on 01-06-2024 Potassium [Moles/Vol] 4.5 mmol/L Normal 3.5-5.1 [facility] Comment on above: Performed By: #### E SR, CBC, CMP, BNP #### [facility] [address] [place] [address] Protein [Mass/volume] in Ser um or PlasmaOrdered By: Jenna Engle on 01-06-2024 Protein [Mass/Vol] 7.1 g/dL Normal 6.4-8.9 [facility] Comment on above: Performed By: #### E SR, CBC, CMP, BNP #### [facility] [address] [place] [address] Serum globulin measurement b y calculation (mass/volume)Ordered By: Jenna Engle on 01-06-2024 Globulin (S) [Mass/Vol] 3.2 g/dL [facility] Comment on above: Performed By: #### E SR, CBC, CMP, BNP #### [facility] [address] [place] [address] Serum or plasma albumin/glob ulin mass ratioOrdered By: Jenna Engle on 01-06-2024 Albumin/Globulin [Mass ratio] 1.2 {ratio} [facility] Comment on above: Performed By: #### E SR, CBC, CMP, BNP #### [facility] [address] [place] [address] Serum or plasma anion gap de terminationOrdered By: Jenna Engle on 01-06-2024 Anion gap [Moles/Vol] 8.8 mmol/L Normal 6.0-15.0 [facility] Comment on above: Performed By: #### E SR, CBC, CMP, BNP #### [facility] [address] [place] [address] [place] Sodium [Moles/volume] in Ser um or PlasmaOrdered By: Jenna Engle on 01-06-2024 Sodium [Moles/Vol] 144 mmol/L Normal 136-145 [facility] Comment on above: Performed By: #### E SR, CBC, CMP, BNP #### [address] [place] [address] [facility] Urea nitrogen [Mass/volume] in Serum or PlasmaOrdered By: Jenna Engle on 01-06-2024 Urea nitrogen [Mass/Vol] 31 mg/dL High 7 [facility] Comment on above: Performed By: #### E SR, CBC, CMP, BNP #### [facility] [address] [place] [id number] [facility] XR chest 2V*on 01-06-2024 XR chest 2V* [facility] [place] [address] [place] [id number] XRay Report Signed Patient: Gera Perdue MR#: [id number] : 1945 Acct:[id number] Age/Sex: 78 / F ADM Date: 01/06/24 Loc: XD Room: Type: [facility] Attending Dr: Jenna Engle MD [...] D.O.01/06/2024 4:08 PM Dictation Location: [place] [address] Transcribed By: [facility] 01/06/24 1608 Dictated By: Rodriguez Palma Jr, DO 01/06/24 1608 Signed By: 01/06/24 1608 Normal [facility] BASIC METABOLIC PANLon 10-23 Anion gap [Moles/Vol] 9 mmol/L Normal 5-15 [facility] Comment on above: Performed By: #### C BC, BMP, [address]-7, 2777-1 #### [facility] ([id number]) [address] [facility] [facility] [place] [address] Calcium [Mass/Vol] 9.1 mg/dL Normal 8.5-10.5 [facility] Comment on above: Performed By: #### C SANTOSH MILLIGAN, , 2776-10 #### [facility] ([id number]) [address], [address] [place] [address] Chloride [Moles/Vol] 102 mmol/L Normal 98-109 [facility] Comment on above: Performed By: #### SANTOSH SALEEM, , 2776-10 #### [facility] ([id number]) [address], [address] [place] [address] CO2 [Moles/Vol] 26 mmol/L Normal 22-32 [facility] Comment on above: Performed By: #### SANTOSH SALEEM, , 2776-10 #### [facility] ([id number]) [address], [address] [place] [address] Creatinine [Mass/Vol] 1.08 mg/dL High 0.40-1.00 [facility] Comment on above: Result Comment: METH OD TRACEABLE TO IDMS STANDARD Performed By: #### SANTOSH SALEEM, , 2776-10 #### [facility] ([id number]) [address], [address] [place] [address] GFR/1.73 sq M.predicted among non-blacks MDRD (S/P/Bld) [Vol rate/Area] 53 mL/min/{1.73_m2} Low >59 [facility] Comment on above: Result Comment: Reported eGFR is based on the CKD-EPI 2020 equation that does not use a race coefficient. Performed By: #### SANTOSH SALEEM, , 2776-10 #### [facility] ([id number]) [address], [address] [place] [address] Glucose [Mass/Vol] 96 mg/dL Normal 65-99 [facility] Comment on above: Performed By: #### C SRINI, [facility], , 2776-10 #### [facility] ([id number]) [address], [address] [place] [address] Potassium [Moles/Vol] 4.4 mmol/L Normal 3.5-5.0 [facility] Comment on above: Performed By: #### C SRINI, [facility], , 2776-10 #### [facility] ([id number]) [address], [address] [place] [address] Sodium [Moles/Vol] 137 mmol/L Normal 134-146 [facility] Comment on above: Performed By: #### C SRINI, [facility], , 2776-10 #### [facility] ([id number]) [address], [address] [place] [address] Urea nitrogen [Mass/Vol] 13 mg/dL Normal 5-27 [facility] Comment on above: Performed By: #### C SRINI, [facility], , 2776-10 #### [facility] ([id number]) [address], [address] [place] [address] COMPLETE BLOOD COUNTon 10-23 Erythrocyte distribution width (RBC) [Ratio] 21.6 % High 11.5-15.0 [facility] Comment on above: Performed By: #### C SRINI, [facility], , 2776-10 #### [facility] ([id number]) [address], [address] [place] [address] Hematocrit (Bld) [Volume fraction] 25.8 % Low 35-47 [facility] Comment on above: Performed By: #### Timmy MILLIGAN, BMP, , 2776-10 #### [facility] ([id number]) [address], [address] [place] [address] Hemoglobin (Bld) [Mass/Vol] 8.5 g/dL Low 11.7-15.5 [facility] Comment on above: Performed By: #### SANTOSH SALEEM, , 2776-10 #### [facility] ([id number]) [address], [address] [place] [address] MCH (RBC) [Entitic mass] 26.1 pg Low 27-34 [facility] Comment on above: Performed By: #### SANTOSH SALEEM, , 2776-10 #### [facility] ([id number]) [address], [address] [place] [address] MCHC (RBC) [Mass/Vol] 32.9 g/dL Normal 32-36 [facility] Comment on above: Performed By: #### SANTOSH SALEEM, , 2776-10 #### [facility] ([id number]) [address], [address] [place] [address] MCV (RBC) [Entitic vol] 79 fL Low 80-100 [facility] Comment on above: Performed By: #### SANTOSH SALEEM, , 2776-10 #### [facility] ([id number]) [address], [address] [place] [address] Platelet mean volume (Bld) [Entitic vol] 6.7 fL Low 7-12 [facility] Comment on above: Performed By: #### SANTOSH SALEEM, , 2776-10 #### [facility] ([id number]) [address], [address] [place] [address] Platelets (Bld) [#/Vol] 551 10*3/uL High 150-450 [facility] Comment on above: Performed By: #### SANTOSH SALEEM, , 2776-10 #### [facility] ([id number]) [address], [address] [place] [address] RBC COUNT 3.26 X10E12/L Low 3.80-5.20 [facility] Comment on above: Performed By: #### SANTOSH SALEEM, , 2776-10 #### [facility] ([id number]) [address], [address] [place] [address] WBC (Bld) [#/Vol] 10.1 10*3/uL Normal 4.0-11.0 [facility] Comment on above: Performed By: #### SANTOSH SALEEM, , 2776-10 #### [facility] ([id number]) [address], [address] [place] [address] Calcium.ionized (Bld) [Mass/ Vol]on 10-23-2023 IONIZED CALCIUM 4.9 mg/dL Normal 4.5-5.3 [facility] Comment on above: Performed By: #### SANTOSH SALEEM, , 2776-10 #### [facility] ([id number]) [address], [address] [place] [address] MAGNESIUMon 10-23-2023 Magnesium [Mass/Vol] 1.7 mg/dL Low 1.8-2.6 [facility] Comment on above: Performed By: #### SANTOSH SALEEM, , 2776-10 #### [facility] ([id number]) [address], [address] [place] [address] PHOSPHORUSon 10-23-2023 Phosphate [Mass/Vol] 5.1 mg/dL High 2.4-4.9 [facility] Comment on above: Performed By: #### SANTOSH SALEEM, , 2776-10 #### [facility] ([id number]) [address], [address] [place] [address] Rheumatoid factor Nephelomet ry Qn (S)on 10-23-2023 RHEUMATOID FACTOR <10 Normal <20 [facility] Comment on above: Performed By: #### C SRINI, BMP, , 2776-10 #### [facility] ([id number]) [address], [address] [place] [address] BASIC METABOLIC PANLon 10-22 Anion gap [Moles/Vol] 10 mmol/L Normal 5-15 [facility] Comment on above: Performed By: #### Timmy MILLIGAN, BMP, , 2776-10 #### [facility] ([id number]) [address], [address] [place] [address] Calcium [Mass/Vol] 8.8 mg/dL Normal 8.5-10.5 [facility] Comment on above: Performed By: #### Timmy MILLIGAN, BMP, , 2776-10 #### [facility] ([id number]) [address], [address] [place] [address] Chloride [Moles/Vol] 104 mmol/L Normal 98-109 [facility] Comment on above: Performed By: #### Timmy MILLIGAN, BMP, , 2776-10 #### [facility] ([id number]) [address], [address] [place] [address] CO2 [Moles/Vol] 25 mmol/L Normal 22-32 [facility] Comment on above: Performed By: #### Timmy MILLIGAN, BMP, , 2776-10 #### [facility] ([id number]) [address], [address] [place] [address] Creatinine [Mass/Vol] 1.02 mg/dL High 0.40-1.00 [facility] Comment on above: Result Comment: METH OD TRACEABLE TO IDMS STANDARD Performed By: #### C SRINI, BMP, , 2776-10 #### [facility] ([id number]) [address], [address] [place] [address] GFR/1.73 sq M.predicted among non-blacks MDRD (S/P/Bld) [Vol rate/Area] 57 mL/min/{1.73_m2} Low >59 [facility] Comment on above: Result Comment: Reported eGFR is based on the CKD-EPI 2020 equation that does not use a race coefficient. Performed By: #### C SANTOSH MILLIGAN, , 2776-10 #### [facility] ([id number]) [address], [address] [place] [address] Glucose [Mass/Vol] 86 mg/dL Normal 65-99 [facility] Comment on above: Performed By: #### Timmy MILLIGAN [facility], , 2776-10 #### [facility] ([id number]) [address], [address] [place] [address] Potassium [Moles/Vol] 4.6 mmol/L Normal 3.5-5.0 [facility] Comment on above: Performed By: #### Timmy MILLIGAN [facility], , 2776-10 #### [facility] ([id number]) [address], [address] [place] [address] Sodium [Moles/Vol] 139 mmol/L Normal 134-146 [facility] Comment on above: Performed By: #### SANTOSH SALEEM, , 2776-10 #### [facility] ([id number]) [address], [address] [place] [address] Urea nitrogen [Mass/Vol] 13 mg/dL Normal 5-27 [facility] Comment on above: Performed By: #### SANTOSH SALEEM, , 2776-10 #### [facility] ([id number]) [address] [facility] [address] [place] [address] COMPLETE BLOOD COUNTon 10-22 Erythrocyte distribution width (RBC) [Ratio] 22.2 % High 11.5-15.0 [facility] Comment on above: Performed By: #### Timmy MILLIGAN [facility], , 2776-10 #### [facility] ([id number]) [address], [address] [place] [address] Hematocrit (Bld) [Volume fraction] 25.7 % Low 35-47 [facility] Comment on above: Performed By: #### C SRINI, [facility], , 2776-10 #### [facility] ([id number]) [address], [address] [place] [address] Hemoglobin (Bld) [Mass/Vol] 8.2 g/dL Low 11.7-15.5 [facility] Comment on above: Performed By: #### Timmy MILLIGAN, [facility], , 2776-10 #### [facility] ([id number]) [address] [place] [address] MCH (RBC) [Entitic mass] 26.2 pg Low 27-34 [facility] Comment on above: Performed By: #### Timmy MILLIGAN [facility], , 2776-10 #### [facility] ([id number]) [address] [place] [address] MCHC (RBC) [Mass/Vol] 32.1 g/dL Normal 32-36 [facility] Comment on above: Performed By: #### Timmy MILLIGAN [facility], , 2776-10 #### [facility] ([id number]) [address], [address] [place] [address] MCV (RBC) [Entitic vol] 82 fL Normal 80-100 [facility] Comment on above: Performed By: #### Timmy MILLIGAN, [facility], , 2776-10 #### [facility] ([id number]) [address], [address] [place] [address] Platelet mean volume (Bld) [Entitic vol] 6.7 fL Low 7-12 [facility] Comment on above: Performed By: #### Timmy MILLIGAN, SANTOSH, , 2776-10 #### [facility] ([id number]) [address], [address] [place] [address] Platelets (Bld) [#/Vol] 533 10*3/uL High 150-450 [facility] Comment on above: Performed By: #### Timmy MILLIGAN, SANTOSH, , 2776-10 #### [facility] ([id number]) [address], [address] [place] [address] RBC COUNT 3.14 X10E12/L Low 3.80-5.20 [facility] Comment on above: Performed By: #### SANTOSH SLAEEM, , 2776-10 #### [facility] ([id number]) [address], [address] [place] [address] WBC (Bld) [#/Vol] 9.7 10*3/uL Normal 4.0-11.0 [facility] Comment on above: Performed By: #### Timmy MILLIGAN, SANTOSH, , 2776-10 #### [facility] ([id number]) [address], [address] [place] [address] Calcium.ionized (Bld) [Mass/ Vol]on 10-22-2023 IONIZED CALCIUM 4.9 mg/dL Normal 4.5-5.3 [facility] Comment on above: Performed By: #### Timmy MILLIGAN, SANTOSH, , 2776-10 #### [facility] ([id number]) [address], [address] [place] [address] Glucose Glucometer (BldC) [M ass/Vol]on 10-22-2023 Glucose [Mass/Vol] 97 mg/dL Normal 65-99 [facility] MAGNESIUMon 10-22-2023 Magnesium [Mass/Vol] 2.1 mg/dL Normal 1.8-2.6 [facility] Comment on above: Performed By: #### Timmy MILLIGAN, BMP, , 2776-10 #### [facility] ([id number]) [address], [address] [place] [address] PHOSPHORUSon 10-22-2023 Phosphate [Mass/Vol] 4.9 mg/dL Normal 2.4-4.9 [facility] Comment on above: Performed By: #### Timmy MILLIGAN, BMP, , 2776-10 #### [facility] ([id number]) [address], [address] [place] [address] BASIC METABOLIC PANLon 10-21 Anion gap [Moles/Vol] 7 mmol/L Normal 5-15 [facility] Comment on above: Performed By: #### Timmy MILLIGAN, BMP, , 2776-10 ####[facility] ([id number])[address], [place] [address] Calcium [Mass/Vol] 9.0 mg/dL Normal 8.5-10.5 [facility] Comment on above: Performed By: #### Timmy MILLIGAN, BMP, , 2776-10 ####[facility] ([id number])[address], [place] [address] Chloride [Moles/Vol] 104 mmol/L Normal 98-109 [facility] Comment on above: Performed By: #### Timmy MILLIGAN, BMP, , 2776-10 ####[facility] ([id number])[address], [place] [address] CO2 [Moles/Vol] 26 mmol/L Normal 22-32 [facility] Comment on above: Performed By: #### Timmy MILLIGAN, BMP, , 2776-10 ####[facility] ([id number])[address], [place] [address] Creatinine [Mass/Vol] 1.06 mg/dL High 0.40-1.00 [facility] Comment on above: Result Comment: METH OD TRACEABLE TO IDMS STANDARD Performed By: #### C SANTOSH MILLIGAN, , 2776-10 ####[facility] ([id number])[address] [address] GFR/1.73 sq M.predicted among non-blacks MDRD (S/P/Bld) [Vol rate/Area] 54 mL/min/{1.73_m2} Low >59 [facility] Comment on above: Result Comment: Reported eGFR is based on the CKD-EPI 2020 equation that does not use a race coefficient. Performed By: #### SNATOSH SALEEM, , 2776-10 ####[facility] ([id number])[address] [address] [address] Glucose [Mass/Vol] 88 mg/dL Normal 65-99 [facility] Comment on above: Performed By: #### SANTOSH SALEEM, , 2776-10 ####[facility] ([id number])[address] [address] [address] Potassium [Moles/Vol] 4.5 mmol/L Normal 3.5-5.0 [facility] Comment on above: Performed By: #### SANTOSH SALEEM, , 2776-10 ####[facility] ([id number])[address] [address] [place] [address] Sodium [Moles/Vol] 137 mmol/L Normal 134-146 [facility] Comment on above: Performed By: #### SANTOSH SALEEM, , 2776-10 ####[facility] ([id number])[address] [address] [place] [address] Urea nitrogen [Mass/Vol] 12 mg/dL Normal 5-27 [facility] Comment on above: Performed By: #### C SRINI, [facility], , 2776-10 ####[facility] ([id number])[address], [place] [address] COMPLETE BLOOD COUNTon 10-21 Erythrocyte distribution width (RBC) [Ratio] 22.0 % High 11.5-15.0 [facility] Comment on above: Performed By: #### C BC, [facility], , 2776-10 ####[facility] ([id number])[address] [place] [address] Hematocrit (Bld) [Volume fraction] 26.3 % Low 35-47 [facility] Comment on above: Performed By: #### C SRINI, BMP, , 2776-10 ####[facility] ([id number])[address] [place] [address] Hemoglobin (Bld) [Mass/Vol] 8.5 g/dL Low 11.7-15.5 [facility] Comment on above: Performed By: #### C SRINI, [facility], , 2776-10 ####[facility] ([id number])[address], [place] [address] MCH (RBC) [Entitic mass] 26.2 pg Low 27-34 [facility] Comment on above: Performed By: #### C SRINI, BMP, , 2776-10 ####[facility] ([id number])[address] [address] MCHC (RBC) [Mass/Vol] 32.4 g/dL Normal 32-36 [facility] Comment on above: Performed By: #### C BC, BMP, , 2776-10 ####[facility] ([id number])[address], [place] [address] MCV (RBC) [Entitic vol] 81 fL Normal 80-100 [facility] Comment on above: Performed By: #### C SRINI, [facility], , 2776-10 ####[facility] ([id number])[address] [address] Platelet mean volume (Bld) [Entitic vol] 6.8 fL Low 7-12 [facility] Comment on above: Performed By: #### C SRINI, [facility], , 2776-10 ####[facility] ([id number])[address] [place] [address] Platelets (Bld) [#/Vol] 611 10*3/uL High 150-450 [facility] Comment on above: Performed By: #### Timmy MILLIGAN [facility], , 2776-10 ####[facility] ([id number])[address] [address] RBC COUNT 3.25 X10E12/L Low 3.80-5.20 [facility] Comment on above: Performed By: #### C SRINI, [facility], , 2776-10 ####[facility] [facility] ([id number])[address] [address] [address] WBC (Bld) [#/Vol] 10.0 10*3/uL Normal 4.0-11.0 [facility] Comment on above: Performed By: #### C SRINI, [facility], , 2776-10 ####[facility] ([id number])[address] [address] [place] [address] CRP [Mass/Vol]on 10-21-2023 C REACTIVE PROTEIN 6.5 mg/dL High 0.000-0.7 4 4 [facility] Comment on above: Performed By: #### 3 8230-9 #### [facility] ([id number]) [address], [address] [place] [address] Calcium.ionized (Bld) [Mass/ Vol]on 10-21-2023 IONIZED CALCIUM 4.9 mg/dL Normal 4.5-5.3 [facility] Comment on above: Performed By: #### 3 8230-9 #### [facility] ([id number]) [address], [address] [place] [address] ESR Photometric method (Bld) [Velocity]on 10-21-2023 ESR, ERYTHROCYTE SEDIMENTATION RATE 74 mm/h High 0-30 [facility] Comment on above: Performed By: #### 3 8230-9 #### [facility] ([id number]) [address] [place] [address] Glucose Glucometer (BldC) [M ass/Vol]on 10-21-2023 Glucose [Mass/Vol] 124 mg/dL High 65-99 [facility] Glucose [Mass/Vol] 135 mg/dL High 65-99 [facility] Glucose [Mass/Vol] 126 mg/dL High 65-99 [facility] Glucose [Mass/Vol] 91 mg/dL Normal 65-99 [facility] MAGNESIUMon 10-21-2023 Magnesium [Mass/Vol] 2.6 mg/dL Normal 1.8-2.6 [facility] Comment on above: Performed By: #### 3 8230-9 #### [facility] ([id number]) [address], [address] [place] [address] Magnesium [Mass/Vol] 1.9 mg/dL Normal 1.8-2.6 [facility] Comment on above: Performed By: #### C BC, BMP, 629[address]-9, 2777-1 ####[facility] ([id number])[address], [address] [place] [address] PHOSPHORUSon 10-21-2023 Phosphate [Mass/Vol] 4.3 mg/dL Normal 2.4-4.9 [facility] Comment on above: Performed By: #### 3 8230-9 #### [facility] ([id number]) [address], [address] [place] [address] XR WRIST LT MIN 3 VWSon 09-28 [...] Morin MD on 10/21/2023 10:28 AM Normal [facility] BASIC METABOLIC PANLon 10-20 Anion gap [Moles/Vol] 7 mmol/L Normal 5-15 [facility] Comment on above: Performed By: #### C SRINI [facility], , 2776-10 ####[facility] ([id number])[address], [address] [place] [address] Calcium [Mass/Vol] 8.6 mg/dL Normal 8.5-10.5 [facility] Comment on above: Performed By: #### SANTOSH SALEEM, , 1 ####[facility] ([id number])[address], [address], [place] [address] Chloride [Moles/Vol] 107 mmol/L Normal 98-109 [facility] Comment on above: Performed By: #### C SRINI BMP, , 2776-10 ####[facility] ([id number])[address], [address] [address] CO2 [Moles/Vol] 25 mmol/L Normal 22-32 [facility] Comment on above: Performed By: #### C BC BMP, , 2776-10 ####[facility] ([id number])[address] [address], [place] [address] Creatinine [Mass/Vol] 1.16 mg/dL High 0.40-1.00 [facility] Comment on above: Result Comment: METH OD TRACEABLE TO IDMS STANDARD Performed By: #### C SANTOSH MILLIGAN, , 2776-10 ####[facility] ([id number])[address] [address] [address] GFR/1.73 sq M.predicted among non-blacks MDRD (S/P/Bld) [Vol rate/Area] 49 mL/min/{1.73_m2} Low >59 [facility] Comment on above: Result Comment: Reported eGFR is based on the CKD-EPI 2020 equation that does not use a race coefficient. Performed By: #### C SANTOSH MILLIGAN, , 2776-10 ####[facility] ([id number])[address] [address] [address] Glucose [Mass/Vol] 80 mg/dL Normal 65-99 [facility] Comment on above: Performed By: #### SANTOSH SALEEM, , 2776-10 ####[facility] ([id number])[address] [address] [place] [address] Potassium [Moles/Vol] 4.6 mmol/L Normal 3.5-5.0 [facility] Comment on above: Performed By: #### C SANTOSH MILLIGAN, , 2776-10 ####[facility] ([id number])[address] [address] [address] Sodium [Moles/Vol] 139 mmol/L Normal 134-146 [facility] Comment on above: Performed By: #### Timmy MILLIGAN, SANTOSH, , 2776-10 ####[facility] ([id number])[address] [address], [place] [address] Urea nitrogen [Mass/Vol] 12 mg/dL Normal 5-27 [facility] Comment on above: Performed By: #### C BC, BMP, , 2776-10 ####[facility] ([id number])[address], [address] [place] [address] COMPLETE BLOOD COUNTon 10-20 Erythrocyte distribution width (RBC) [Ratio] 22.5 % High 11.5-15.0 [facility] Comment on above: Performed By: #### C SRINI, BMP, , 2776-10 ####[facility] ([id number])[address], [address] [place] [address] Hematocrit (Bld) [Volume fraction] 24.8 % Low 35-47 [facility] Comment on above: Performed By: #### Timmy MILLIGAN, BMP, , 2776-10 ####[facility] ([id number])[address] [address], [place] [address] Hemoglobin (Bld) [Mass/Vol] 8.1 g/dL Low 11.7-15.5 [facility] Comment on above: Performed By: #### Timmy MILLIGAN, BMP, , 2776-10 ####[facility] ([id number])[address], [address] [place] [address] MCH (RBC) [Entitic mass] 26.2 pg Low 27-34 [facility] Comment on above: Performed By: #### C BC, BMP, , 2776-10 ####[facility] ([id number])[address], [address] [place] [address], [place] [address] MCHC (RBC) [Mass/Vol] 32.4 g/dL Normal 32-36 [facility] Comment on above: Performed By: #### Timmy BC, BMP, , 2776-10 ####[facility] ([id number])[address], [address] [address] MCV (RBC) [Entitic vol] 81 fL Normal 80-100 [facility] Comment on above: Performed By: #### SANTOSH SALEEM, , 2776-10 ####[facility] ([id number])[address], [address], [place] [address] Platelet mean volume (Bld) [Entitic vol] 6.7 fL Low 7-12 [facility] Comment on above: Performed By: #### SANTOSH SALEEM, , 2776-10 ####[facility] ([id number])[address], [place] [address] Platelets (Bld) [#/Vol] 554 10*3/uL High 150-450 [facility] Comment on above: Performed By: #### SANTOSH SALEEM, , 2776-10 ####[facility] ([id number])[address] [address] [address] RBC COUNT 3.08 X10E12/L Low 3.80-5.20 [facility] Comment on above: Performed By: #### SANTOSH SALEEM, , 2776-10 ####[facility] ([id number])[address] [address] [place] [address] WBC (Bld) [#/Vol] 9.3 10*3/uL Normal 4.0-11.0 [facility] Comment on above: Performed By: #### SANTOSH SALEEM, , 2776-10 ####[facility] ([id number])[address], [address] [place] [address] Glucose Glucometer (BldC) [M ass/Vol]on 10-20-2023 Glucose [Mass/Vol] 108 mg/dL High 65-99 [facility] Glucose [Mass/Vol] 115 mg/dL High 65-99 [facility] Glucose [Mass/Vol] 140 mg/dL High 65-99 [facility] Glucose [Mass/Vol] 94 mg/dL Normal 65-99 [facility] MAGNESIUMon 10-20-2023 Magnesium [Mass/Vol] 1.7 mg/dL Low 1.8-2.6 [facility] Comment on above: Performed By: #### SANTOSH SALEEM, , 2776-10 ####[facility] ([id number])[address] [place] [address] PHOSPHORUSon 10-20-2023 Phosphate [Mass/Vol] 4.2 mg/dL Normal 2.4-4.9 [facility] Comment on above: Performed By: #### SANTOSH SALEEM, , 2776-10 ####[facility] ([id number])[address] [place] [address] BASIC METABOLIC PANLon 10-19 Anion gap [Moles/Vol] 8 mmol/L Normal 5-15 [facility] Comment on above: Performed By: #### SANTOSH SALEEM, , 2776-10 ####[facility] ([id number])[address] [place] [address] Calcium [Mass/Vol] 8.3 mg/dL Low 8.5-10.5 [facility] Comment on above: Performed By: #### SANTOSH SALEEM, , 2776-10 ####[facility] ([id number])[address] [place] [address] Chloride [Moles/Vol] 107 mmol/L Normal 98-109 [facility] Comment on above: Performed By: #### SANTOSH SALEEM, , 2776-10 ####[facility] ([id number])[address] [address], [place] [address] CO2 [Moles/Vol] 24 mmol/L Normal 22-32 [facility] Comment on above: Performed By: #### SANTOSH SALEEM, , 2776-10 ####[facility] ([id number])[address] [address], [place] [address] Creatinine [Mass/Vol] 1.05 mg/dL High 0.40-1.00 [facility] Comment on above: Result Comment: METH OD TRACEABLE TO IDMS STANDARD Performed By: #### C SANTOSH MILLIGAN, , 2776-10 ####[facility] ([id number])[address] [address] GFR/1.73 sq M.predicted among non-blacks MDRD (S/P/Bld) [Vol rate/Area] 55 mL/min/{1.73_m2} Low >59 [facility] Comment on above: Result Comment: Reported eGFR is based on the CKD-EPI 2020 equation that does not use a race coefficient. Performed By: #### C SANTOSH MILLIGAN, , 2776-10 ####[facility] ([id number])[address] [address], [place] [address] Glucose [Mass/Vol] 82 mg/dL Normal 65-99 [facility] Comment on above: Performed By: #### SANTOSH SALEEM, , 2776-10 ####[facility] ([id number])[address] [address], [place] [address] Potassium [Moles/Vol] 4.3 mmol/L Normal 3.5-5.0 [facility] Comment on above: Performed By: #### SANTOSH SALEEM, 2776-10 ####[facility] ([id number])[address] [address], [place] [address] Sodium [Moles/Vol] 139 mmol/L Normal 134-146 [facility] Comment on above: Performed By: #### C BC, BMP, , 2776-10 ####[facility] ([id number])[address] [address] Urea nitrogen [Mass/Vol] 10 mg/dL Normal 5-27 [facility] Comment on above: Performed By: #### C BC, BMP, , 2776-10 ####[facility] ([id number])[address] [address] COMPLETE BLOOD COUNTon 10-19 Erythrocyte distribution width (RBC) [Ratio] 22.7 % High 11.5-15.0 [facility] Comment on above: Performed By: #### Timmy BC, BMP, , 2776-10 ####[facility] ([id number])[address] [address] Hematocrit (Bld) [Volume fraction] 24.4 % Low 35-47 [facility] Comment on above: Performed By: #### C SRINI, BMP, , 2776-10 ####[facility] ([id number])[address] [address] Hemoglobin (Bld) [Mass/Vol] 7.8 g/dL Low 11.7-15.5 [facility] Comment on above: Performed By: #### C BC, BMP, , 2776-10 ####[facility] ([id number])[address] [address] MCH (RBC) [Entitic mass] 25.9 pg Low 27-34 [facility] Comment on above: Performed By: #### C BC, BMP, , 2776-10 ####[facility] ([id number])[address] [address] MCHC (RBC) [Mass/Vol] 31.8 g/dL Low 32-36 [facility] Comment on above: Performed By: #### SANTOSH SALEEM, , 2776-10 ####[facility] ([id number])[address] [place] [address] MCV (RBC) [Entitic vol] 82 fL Normal 80-100 [facility] Comment on above: Performed By: #### Timmy MILLIGAN, SANTOSH, , 2776-10 ####[facility] ([id number])[address], [address] [place] [address] Platelet mean volume (Bld) [Entitic vol] 6.6 fL Low 7-12 [facility] Comment on above: Performed By: #### SANTOSH SALEEM, , 2776-10 ####[facility] ([id number])[address] [address] [place] [address] Platelets (Bld) [#/Vol] 533 10*3/uL High 150-450 [facility] Comment on above: Performed By: #### SANTOSH SALEEM, , 2776-10 ####[facility] ([id number])[address] [address] RBC COUNT 2.99 X10E12/L Low 3.80-5.20 [facility] Comment on above: Performed By: #### SANTOSH SALEEM, , 2776-10 ####[facility] ([id number])[address] [place] [address] WBC (Bld) [#/Vol] 9.9 10*3/uL Normal 4.0-11.0 [facility] Comment on above: Performed By: #### SANTOSH SALEEM, , 2776-10 ####[facility] ([id number])[address], [place] [address] Calcium.ionized (Bld) [Mass/ Vol]on 10-19-2023 IONIZED CALCIUM 4.9 mg/dL Normal 4.5-5.3 [facility] Comment on above: Performed By: #### 3 8230-9 ####[facility] ([id number])[address], [place] [address] Glucose Glucometer (BldC) [M ass/Vol]on 10-19-2023 Glucose [Mass/Vol] 102 mg/dL High 65-99 [facility] Glucose [Mass/Vol] 117 mg/dL High 65-99 [facility] Glucose [Mass/Vol] 103 mg/dL High 65-99 [facility] MAGNESIUMon 10-19-2023 Magnesium [Mass/Vol] 2.0 mg/dL Normal 1.8-2.6 [facility] Comment on above: Performed By: #### C SANTOSH MILLIGAN, , 2776-10 ####[facility] ([id number])[address], [address] [place] [address] PHOSPHORUSon 10-19-2023 Phosphate [Mass/Vol] 4.3 mg/dL Normal 2.4-4.9 [facility] Comment on above: Performed By: #### SANTOSH SALEEM, , 2776-10 ####[facility] ([id number])[address] [address] BASIC METABOLIC PANLon 10-18 Anion gap [Moles/Vol] 10 mmol/L Normal 5-15 [facility] Comment on above: Performed By: #### C SANTOSH MILLIGAN, , 2776-10, 3084-1 ####[facility] ([id number])[address] [address] Calcium [Mass/Vol] 8.5 mg/dL Normal 8.5-10.5 [facility] Comment on above: Performed By: #### C SRINI, SANTOSH, , 2776-10, 3083-10 ####[facility] ([id number])[address], [address], [place] [address] Chloride [Moles/Vol] 107 mmol/L Normal 98-109 [facility] Comment on above: Performed By: #### C SRINI, SANTOSH, , 2776-10, 3083-10 ####[facility] ([id number])[address], [address], [place] [address] CO2 [Moles/Vol] 23 mmol/L Normal 22-32 [facility] Comment on above: Performed By: #### SANTOSH SALEEM, , 2776-10, 3083-10 ####[facility] ([id number])[address], [address] [place] [address] Creatinine [Mass/Vol] 1.17 mg/dL High 0.40-1.00 [facility] Comment on above: Result Comment: METH OD TRACEABLE TO IDMS STANDARD Performed By: #### C SRINI, SANTOSH, , 2776-10, 3083-10 ####[facility] ([id number])[address] [address] GFR/1.73 sq M.predicted among non-blacks MDRD (S/P/Bld) [Vol rate/Area] 48 mL/min/{1.73_m2} Low >59 [facility] Comment on above: Result Comment: Reported eGFR is based on the CKD-EPI 2020 equation that does not use a race coefficient. Performed By: #### C SRINI, SANTOSH, , 2776-10, 3083-1 ####[facility] ([id number])[address] [address], [place] [address] Glucose [Mass/Vol] 82 mg/dL Normal 65-99 [facility] Comment on above: Performed By: #### C BC, BMP, , 2776-10, 3083- ####[facility] ([id number])[address], [address] [place] [address] Potassium [Moles/Vol] 4.0 mmol/L Normal 3.5-5.0 [facility] Comment on above: Performed By: #### C BC, BMP, , 2776-10, 3083- ####[facility] ([id number])[address], [address] [place] [address] Sodium [Moles/Vol] 140 mmol/L Normal 134-146 [facility] Comment on above: Performed By: #### Timmy BC, BMP, , 2776-10, 3083- ####[facility] ([id number])[address], [address] [place] [address] Urea nitrogen [Mass/Vol] 11 mg/dL Normal 5-27 [facility] Comment on above: Performed By: #### Timmy BC, BMP, , 2776-10, 3083-10 ####[facility] ([id number])[address] [address] COMPLETE BLOOD COUNTon 10-18 Erythrocyte distribution width (RBC) [Ratio] 21.2 % High 11.5-15.0 [facility] Comment on above: Performed By: #### C BC, BMP, , 2776-10, 3083- ####[facility] ([id number])[address] [address] Hematocrit (Bld) [Volume fraction] 24.6 % Low 35-47 [facility] Comment on above: Performed By: #### Timmy BC, BMP, , 2776-10, 3083- ####[facility] ([id number])[address] [place] [address] Hemoglobin (Bld) [Mass/Vol] 7.9 g/dL Low 11.7-15.5 [facility] Comment on above: Performed By: #### Timmy MILLIGAN, BMP, , 2776-10, 3083- ####[facility] ([id number])[address] [place] [address] MCH (RBC) [Entitic mass] 26.2 pg Low 27-34 [facility] Comment on above: Performed By: #### Timmy MILLIGAN, BMP, , 2776-10, 3083- ####[facility] ([id number])[address] [address] [place] [address] MCHC (RBC) [Mass/Vol] 32.2 g/dL Normal 32-36 [facility] Comment on above: Performed By: #### Timmy MILLIGAN, BMP, , 2776-10, 3083- ####[facility] ([id number])[address] [address] [place] [address] MCV (RBC) [Entitic vol] 81 fL Normal 80-100 [facility] Comment on above: Performed By: #### Timmy MILLIGAN, BMP, , 2776-10, 3083- ####[facility] ([id number])[address] [place] [address] Platelet mean volume (Bld) [Entitic vol] 6.5 fL Low 7-12 [facility] Comment on above: Performed By: #### Timmy BC, BMP, , 2776-10, 3083- ####[facility] ([id number])[address] [place] [address] Platelets (Bld) [#/Vol] 522 10*3/uL High 150-450 [facility] Comment on above: Performed By: #### C BC, BMP, , 2776-10, 3083-10 ####[facility] ([id number])[address], [address] [place] [address] RBC COUNT 3.03 X10E12/L Low 3.80-5.20 [facility] Comment on above: Performed By: #### C BC, BMP, , 2776-10, 3083-10 ####[facility] ([id number])[address], [address] [place] [address] WBC (Bld) [#/Vol] 9.3 10*3/uL Normal 4.0-11.0 [facility] Comment on above: Performed By: #### C SRINI, SANTOSH, , 2776-10, 3083-10 ####[facility] ([id number])[address], [address] [place] [address] Calcium.ionized (Bld) [Mass/ Vol]on 10-18-2023 IONIZED CALCIUM 4.9 mg/dL Normal 4.5-5.3 [facility] Comment on above: Performed By: #### 3 8230-9 ####[facility] ([id number])[address], [address] [place] [address] Glucose Glucometer (BldC) [M ass/Vol]on 10-18-2023 Glucose [Mass/Vol] 108 mg/dL High 65-99 [facility] Glucose [Mass/Vol] 134 mg/dL High 65-99 [facility] Glucose [Mass/Vol] 127 mg/dL High 65-99 [facility] Glucose [Mass/Vol] 102 mg/dL High 65-99 [facility] MAGNESIUMon 10-18-2023 Magnesium [Mass/Vol] 1.7 mg/dL Low 1.8-2.6 [facility] Comment on above: Performed By: #### C BC, BMP, 34795-6, 2777-1, 3084-1 ####[facility] ([id number])[address] [facility] [address] [place] [address] MR CERVICAL SPINE WO CONTon 10-18-2023 MR [...] MD on 10/18/2023 2:39 AM Normal [facility] MR LUMBAR SPINE WO CONTon MR [...] William MD on 10/18/2023 3:37 AM Normal [facility] MR THORACIC SPINE WO CONTon 10-18-2023 MR [...] William MD on 10/18/2023 3:25 AM Normal [facility] PHOSPHORUSon 10-18-2023 Phosphate [Mass/Vol] 4.1 mg/dL Normal 2.4-4.9 [facility] Comment on above: Performed By: #### C SRINI, BMP, 64843-2, 2777-1, 3084-1 ####[facility] ([id number])[address], [address] [place] [address] URIC ACIDon 10-18-2023 Urate [Mass/Vol] 4.7 mg/dL Normal 2.6-7.2 [facility] Comment on above: Performed By: #### C SRINI, BMP, 60179-1, 2777-1, 3084-1 ####[facility] ([id number])[address], [address] [place] [address] XR WRIST RT 2 VWSon 10-18-20 23 [...] Rod MD on 10/18/2023 2:24 PM Normal [facility] BASIC METABOLIC PANLon 10-17 Anion gap [Moles/Vol] 8 mmol/L Normal 5-15 [facility] Comment on above: Performed By: #### 1 7928-3 #### [facility] ([id number]) [address], [address] [place] [address] Calcium [Mass/Vol] 8.5 mg/dL Normal 8.5-10.5 [facility] Comment on above: Performed By: #### 1 7928-3 #### [facility] ([id number]) [address], [address] [place] [address] Chloride [Moles/Vol] 105 mmol/L Normal 98-109 [facility] Comment on above: Performed By: #### 1 7928-3 #### [facility] ([id number]) [address], [address] [place] [address] CO2 [Moles/Vol] 24 mmol/L Normal 22-32 [facility] Comment on above: Performed By: #### 1 7928-3 #### [facility] ([id number]) [address], [address] [place] [address] Creatinine [Mass/Vol] 1.03 mg/dL High 0.40-1.00 [facility] Comment on above: Result Comment: METH OD TRACEABLE TO IDMS STANDARD Performed By: #### 1 7928-3 #### [facility] ([id number]) [address], [address] [place] [address] GFR/1.73 sq M.predicted among non-blacks MDRD (S/P/Bld) [Vol rate/Area] 56 mL/min/{1.73_m2} Low >59 [facility] Comment on above: Result Comment: Reported eGFR is based on the CKD-EPI 1 equation that does not use a race coefficient. Performed By: #### 1 7928-3 #### [facility] ([id number]) [address], [address] [place] [address] Glucose [Mass/Vol] 88 mg/dL Normal 65-99 [facility] Comment on above: Performed By: #### 1 7928-3 #### [facility] ([id number]) [address], [address] [place] [address] Potassium [Moles/Vol] 4.2 mmol/L Normal 3.5-5.0 [facility] Comment on above: Performed By: #### 1 7928-3 #### [facility] ([id number]) [address], [address] [place] [address] Sodium [Moles/Vol] 137 mmol/L Normal 134-146 [facility] Comment on above: Performed By: #### 1 7928-3 #### [facility] ([id number]) [address], [address] [place] [address] Urea nitrogen [Mass/Vol] 13 mg/dL Normal 5-27 [facility] Comment on above: Performed By: #### 1 7928-3 #### [facility] ([id number]) [address] [address] [place] [address] COMPLETE BLOOD COUNTon 10-17 Erythrocyte distribution width (RBC) [Ratio] 21.4 % High 11.5-15.0 [facility] Comment on above: Performed By: #### 1 7928-3 #### [facility] ([id number]) [address], [address] [place] [address] Hematocrit (Bld) [Volume fraction] 25.0 % Low 35-47 [facility] Comment on above: Performed By: #### 1 7928-3 #### [facility] ([id number]) [address] [place] [address] Hemoglobin (Bld) [Mass/Vol] 7.9 g/dL Low 11.7-15.5 [facility] Comment on above: Performed By: #### 1 7928-3 #### [facility] ([id number]) [address] [address] [place] [address] MCH (RBC) [Entitic mass] 25.4 pg Low 27-34 [facility] Comment on above: Performed By: #### 1 7928-3 #### [facility] ([id number]) [address], [address] [place] [address] MCHC (RBC) [Mass/Vol] 31.4 g/dL Low 32-36 [facility] Comment on above: Performed By: #### 1 7928-3 #### [facility] ([id number]) [address], [address] [place] [address] MCV (RBC) [Entitic vol] 81 fL Normal 80-100 [facility] Comment on above: Performed By: #### 1 7928-3 #### [facility] ([id number]) [address], [address] [place] [address] Platelet mean volume (Bld) [Entitic vol] 6.6 fL Low 7-12 [facility] Comment on above: Performed By: #### 1 7928-3 #### [facility] ([id number]) [address], [address] [place] [address] Platelets (Bld) [#/Vol] 519 10*3/uL High 150-450 [facility] Comment on above: Performed By: #### 1 7928-3 #### [facility] ([id number]) [address] [place] [address] RBC COUNT 3.09 X10E12/L Low 3.80-5.20 [facility] Comment on above: Performed By: #### 1 7928-3 #### [facility] ([id number]) [address], [address] [place] [address] WBC (Bld) [#/Vol] 10.7 10*3/uL Normal 4.0-11.0 [facility] Comment on above: Performed By: #### 1 7928-3 #### [facility] ([id number]) [address], [address] [place] [address] Calcium.ionized (Bld) [Mass/ Vol]on 10-17-2023 IONIZED CALCIUM 4.8 mg/dL Normal 4.5-5.3 [facility] Comment on above: Performed By: #### 1 7928-3 #### [facility] ([id number]) [address], [address] [place] [address] Glucose Glucometer (BldC) [M ass/Vol]on 10-17-2023 Glucose [Mass/Vol] 106 mg/dL High 65-99 [facility] Glucose [Mass/Vol] 96 mg/dL Normal 65-99 [facility] Glucose [Mass/Vol] 123 mg/dL High 65-99 [facility] Glucose [Mass/Vol] 88 mg/dL Normal 65-99 [facility] MAGNESIUMon 10-17-2023 Magnesium [Mass/Vol] 2.1 mg/dL Normal 1.8-2.6 [facility] Comment on above: Performed By: #### 1 7928-3 #### [facility] ([id number]) [address], [address] [place] [address] PHOSPHORUSon 10-17-2023 Phosphate [Mass/Vol] 3.8 mg/dL Normal 2.4-4.9 [facility] Comment on above: Result Comment: SPEC IMEN HEMOLYZED, RESULTS INCREASED SLIGHTLY HEMOLYZED Performed By: #### 1 7928-3 #### [facility] ([id number]) [address], [address] [place] [address] BASIC METABOLIC PANLon 10-16 Anion gap [Moles/Vol] 10 mmol/L Normal 5-15 [facility] Comment on above: Performed By: #### E LEC #### [facility] ([id number]) [address], [address] [place] [address] Calcium [Mass/Vol] 9.0 mg/dL Normal 8.5-10.5 [facility] Comment on above: Performed By: #### E LEC #### [facility] ([id number]) [address], [address] [place] [address] Chloride [Moles/Vol] 106 mmol/L Normal 98-109 [facility] Comment on above: Performed By: #### E LEC #### [facility] ([id number]) [address], [address] [place] [address] CO2 [Moles/Vol] 22 mmol/L Normal 22-32 [facility] Comment on above: Performed By: #### E LEC #### [facility] ([id number]) [address], [address] [place] [address] Creatinine [Mass/Vol] 1.03 mg/dL High 0.40-1.00 [facility] Comment on above: Result Comment: METH OD TRACEABLE TO IDMS STANDARD Performed By: #### E LEC #### [facility] ([id number]) [address], [address] [place] [address] GFR/1.73 sq M.predicted among non-blacks MDRD (S/P/Bld) [Vol rate/Area] 56 mL/min/{1.73_m2} Low >59 [facility] Comment on above: Result Comment: Reported eGFR is based on the CKD-EPI 2020 equation that does not use a race coefficient. Performed By: #### E LEC #### [facility] ([id number]) [address], [address] [place] [address] Glucose [Mass/Vol] 87 mg/dL Normal 65-99 [facility] Comment on above: Performed By: #### E LEC #### [facility] ([id number]) [address] [address] [place] [address] Potassium [Moles/Vol] 4.4 mmol/L Normal 3.5-5.0 [facility] Comment on above: Performed By: #### E LEC #### [facility] ([id number]) [address], [address] [place] [address] Sodium [Moles/Vol] 138 mmol/L Normal 134-146 [facility] Comment on above: Performed By: #### E LEC #### [facility] ([id number]) [address] [place] [address] Urea nitrogen [Mass/Vol] 13 mg/dL Normal 5-27 [facility] Comment on above: Performed By: #### E LEC #### [facility] ([id number]) [address], [facility] [address] [place] [address] CK [Catalytic activity/Vol]o n 10-16-2023 CPK 35 U/L Normal 24-170 [facility] Comment on above: Performed By: #### 1 7928-3 #### [facility] ([id number]) [address] [address] COMPLETE BLOOD COUNTon 10-16 Erythrocyte distribution width (RBC) [Ratio] 20.1 % High 11.5-15.0 [facility] Comment on above: Performed By: #### E LEC #### [facility] ([id number]) [address] [address] [place] [address] Hematocrit (Bld) [Volume fraction] 26.5 % Low 35-47 [facility] Comment on above: Performed By: #### E LEC #### [facility] ([id number]) [address] [address] [place] [address] Hemoglobin (Bld) [Mass/Vol] 8.5 g/dL Low 11.7-15.5 [facility] Comment on above: Performed By: #### E LEC #### [facility] ([id number]) [address] [address] MCH (RBC) [Entitic mass] 25.9 pg Low 27-34 [facility] Comment on above: Performed By: #### E LEC #### [facility] ([id number]) [address] [place] [address] MCHC (RBC) [Mass/Vol] 32.1 g/dL Normal 32-36 [facility] Comment on above: Performed By: #### E LEC #### [facility] ([id number]) [address] [place] [address] MCV (RBC) [Entitic vol] 81 fL Normal 80-100 [facility] Comment on above: Performed By: #### E LEC #### [facility] ([id number]) [address] [address] [place] [address] Platelet mean volume (Bld) [Entitic vol] 6.8 fL Low 7-12 [facility] Comment on above: Performed By: #### E LEC #### [facility] ([id number]) [address] [address] [place] [address] Platelets (Bld) [#/Vol] 633 10*3/uL High 150-450 [facility] Comment on above: Performed By: #### E LEC #### [facility] ([id number]) [address] [place] [address] RBC COUNT 3.28 X10E12/L Low 3.80-5.20 [facility] Comment on above: Performed By: #### E LEC #### [facility] ([id number]) [address] [address] [place] [address] WBC (Bld) [#/Vol] 16.2 10*3/uL High 4.0-11.0 [facility] Comment on above: Performed By: #### E LEC #### [facility] ([id number]) [address], [address] [place] [address] Calcium.ionized (Bld) [Mass/ Vol]on 10-16-2023 IONIZED CALCIUM 5.0 mg/dL Normal 4.5-5.3 [facility] Comment on above: Performed By: #### E LEC #### [facility] ([id number]) [address] [place] [address] Glucose Glucometer (BldC) [M ass/Vol]on 10-16-2023 Glucose [Mass/Vol] 119 mg/dL High 65-99 [facility] Glucose [Mass/Vol] 128 mg/dL High 65-99 [facility] Glucose [Mass/Vol] 125 mg/dL High 65-99 [facility] Glucose [Mass/Vol] 88 mg/dL Normal 65-99 [facility] LIVER PANELon 10-16-2023 Albumin [Mass/Vol] 2.6 g/dL Low 3.2-5.3 [facility] Comment on above: Performed By: #### 1 7928-3 #### [facility] ([id number]) [address], [address] [place] [address] ALP [Catalytic activity/Vol] 104 U/L Normal 39-130 [facility] Comment on above: Performed By: #### 1 7928-3 #### [facility] ([id number]) [address], [address] [place] [address] ALT [Catalytic activity/Vol] 6 U/L Normal 0-31 [facility] Comment on above: Performed By: #### 1 7928-3 #### [facility] ([id number]) [address], [address] [place] [address] AST [Catalytic activity/Vol] 16 U/L Normal 0-41 [facility] Comment on above: Performed By: #### 1 7928-3 #### [facility] ([id number]) [address], [address] [place] [address] Bilirubin [Mass/Vol] 0.3 mg/dL Normal 0.3-1.2 [facility] Comment on above: Performed By: #### 1 7928-3 #### [facility] ([id number]) [address], [address] [place] [address] Bilirubin.direct [Mass/Vol] 0.1 mg/dL Normal 0.0-0.4 [facility] Comment on above: Performed By: #### 1 7928-3 #### [facility] ([id number]) [address], [address] [place] [address] Protein [Mass/Vol] 6.9 g/dL Normal 6.0-8.0 [facility] Comment on above: Performed By: #### 1 7928-3 #### [facility] ([id number]) [address] [place] [address] MAGNESIUMon 10-16-2023 Magnesium [Mass/Vol] 2.9 mg/dL High 1.8-2.6 [facility] Comment on above: Performed By: #### E LEC #### [facility] ([id number]) [address], [address] [place] [address] PHOSPHORUSon 10-16-2023 Phosphate [Mass/Vol] 4.3 mg/dL Normal 2.4-4.9 [facility] Comment on above: Performed By: #### 1 7928-3 #### [facility] ([id number]) [address], [address] [place] [address] BASIC METABOLIC PANLon 10-15 Anion gap [Moles/Vol] 9 mmol/L Normal 5-15 [facility] Comment on above: Performed By: #### C SANTOSH MILLIGAN, , 2776- #### [facility] ([id number]) [address], [address] [place] [address] Calcium [Mass/Vol] 9.4 mg/dL Normal 8.5-10.5 [facility] Comment on above: Performed By: #### C SRINI BMP, , 2776-10 #### [facility] ([id number]) [address], [address] [place] [address] Chloride [Moles/Vol] 103 mmol/L Normal 98-109 [facility] Comment on above: Performed By: #### C BC, BMP, , 2776-10 #### [facility] ([id number]) [address] [place] [address] CO2 [Moles/Vol] 23 mmol/L Normal 22-32 [facility] Comment on above: Performed By: #### Timmy BC, [facility], , 2776-10 #### [facility] ([id number]) [address] [place] [address] Creatinine [Mass/Vol] 0.94 mg/dL Normal 0.40-1.00 [facility] Comment on above: Result Comment: METH OD TRACEABLE TO IDMS STANDARD Performed By: #### C SRINI, [facility], , 2776-10 #### [facility] ([id number]) [address] [address] [place] [address] GFR/1.73 sq M.predicted among non-blacks MDRD (S/P/Bld) [Vol rate/Area] 62 mL/min/{1.73_m2} Normal >59 [facility] Comment on above: Result Comment: Reported eGFR is based on the CKD-EPI 2020 equation that does not use a race coefficient. Performed By: #### C BC, BMP, , 2776-10 #### [facility] ([id number]) [address] [place] [address] Glucose [Mass/Vol] 89 mg/dL Normal 65-99 [facility] Comment on above: Performed By: #### Timmy BC, BMP, , 2776-10 #### [facility] ([id number]) [address] [address] [place] [address] Potassium [Moles/Vol] 4.2 mmol/L Normal 3.5-5.0 [facility] Comment on above: Performed By: #### C SRINI [facility], , 2776-10 #### [facility] ([id number]) [address], [facility] [address] [place] [address] Sodium [Moles/Vol] 135 mmol/L Normal 134-146 [facility] Comment on above: Performed By: #### Timmy MILLIGAN, [facility], , 2776-10 #### [facility] ([id number]) [address], [facility] [address] [place] [address] Urea nitrogen [Mass/Vol] 13 mg/dL Normal 5-27 [facility] Comment on above: Performed By: #### SANTOSH SALEEM, , 2776-10 #### [facility] ([id number]) [address] [place] [address] COMPLETE BLOOD COUNTon 10-15 Erythrocyte distribution width (RBC) [Ratio] 18.7 % High 11.5-15.0 [facility] Comment on above: Performed By: #### SANTOSH SALEEM, , 2776-10 #### [facility] ([id number]) [address], [facility] [address] [place] [address] Hematocrit (Bld) [Volume fraction] 29.7 % Low 35-47 [facility] Comment on above: Performed By: #### Timmy MILLIGAN, BMP, , 2776-10 #### [facility] ([id number]) [address] [address] [place] [address] Hemoglobin (Bld) [Mass/Vol] 9.3 g/dL Low 11.7-15.5 [facility] Comment on above: Performed By: #### Timmy MILLIGAN, BMP, , 2776-10 #### [facility] ([id number]) [address] [place] [address] MCH (RBC) [Entitic mass] 25.1 pg Low 27-34 [facility] Comment on above: Performed By: #### C SANTOSH MILLIGAN, , 2776-10 #### [facility] ([id number]) [address] [place] [address] MCHC (RBC) [Mass/Vol] 31.3 g/dL Low 32-36 [facility] Comment on above: Performed By: #### SANTOSH SALEEM, , 2776-10 #### [facility] ([id number]) [address], [address] [place] [address] MCV (RBC) [Entitic vol] 80 fL Normal 80-100 [facility] Comment on above: Performed By: #### SANTOSH SALEEM, , 2776-10 #### [facility] ([id number]) [address] [place] [address] Platelet mean volume (Bld) [Entitic vol] 7.0 fL Normal 7-12 [facility] Comment on above: Performed By: #### SANTOSH SALEEM, , 2776-10 #### [facility] ([id number]) [address] [place] [address] Platelets (Bld) [#/Vol] 705 10*3/uL High 150-450 [facility] Comment on above: Performed By: #### SANTOSH SALEEM, , 2776-10 #### [facility] ([id number]) [address] [place] [address] RBC COUNT 3.71 X10E12/L Low 3.80-5.20 [facility] Comment on above: Performed By: #### SANTOSH SALEEM, , 1 #### [facility] ([id number]) [address] [place] [address] WBC (Bld) [#/Vol] 24.4 10*3/uL High 4.0-11.0 [facility] Comment on above: Performed By: #### C BC, [facility], [address]-4, 2777- #### [facility] ([id number]) [address] [place] [address] Calcium.ionized (Bld) [Mass/ Vol]on 10-15-2023 IONIZED CALCIUM 4.8 mg/dL Normal 4.5-5.3 [facility] Comment on above: Performed By: #### 3 8230-9 #### [facility] ([id number]) [address] [place] [address] [place] SWALLOW MOTILITY FUNCTION on 10-15-2023 FL [...] Pereira MD on 10/15/2023 2:48 PM Normal [facility] Glucose Glucometer (BldC) [M ass/Vol]on 10-15-2023 Glucose [Mass/Vol] 111 mg/dL High 65-99 [facility] Glucose [Mass/Vol] 93 mg/dL Normal 65-99 [facility] Glucose [Mass/Vol] 99 mg/dL Normal 65-99 [facility] MAGNESIUMon 10-15-2023 Magnesium [Mass/Vol] 1.5 mg/dL Low 1.8-2.6 [facility] Comment on above: Performed By: #### E LEC #### [facility] ([id number]) [address] [place] [address] PHOSPHORUSon 10-15-2023 Phosphate [Mass/Vol] 3.4 mg/dL Normal 2.4-4.9 [facility] Comment on above: Performed By: #### E LEC #### [facility] ([id number]) [address] [place] [address] Vancomycin trough [Mass/Vol] on 10-15-2023 VANCOMYCIN TROUGH 15.5 ug/mL Normal 5.0-20.0 [facility] Comment on above: Performed By: #### E LEC #### [facility] ([id number]) [address] [place] [address] ELECTROLYTESon 10-14-2023 Anion gap [Moles/Vol] 7 mmol/L Normal 5-15 [facility] Comment on above: Performed By: #### E LEC #### [facility] ([id number]) [address] [place] [address] Chloride [Moles/Vol] 106 mmol/L Normal 98-109 [facility] Comment on above: Performed By: #### E LEC #### [facility] ([id number]) [address] [place] [address] CO2 [Moles/Vol] 22 mmol/L Normal 22-32 [facility] Comment on above: Performed By: #### E LEC #### [facility] ([id number]) [address] [place] [address] Potassium [Moles/Vol] 5.8 mmol/L High 3.5-5.0 [facility] Comment on above: Performed By: #### E LEC #### [facility] ([id number]) [address] [place] [address] Sodium [Moles/Vol] 135 mmol/L Normal 134-146 [facility] Comment on above: Performed By: #### E LEC #### [facility] ([id number]) [address] [place] [address] Glucose Glucometer (BldC) [M ass/Vol]on 10-14-2023 Glucose [Mass/Vol] 84 mg/dL Normal 65-99 [facility] Glucose [Mass/Vol] 105 mg/dL High 65-99 [facility] Glucose [Mass/Vol] 85 mg/dL Normal 65-99 [facility] BLOOD CULTUREon 10-13-2023 Bacteria identified Aer cx Nom (Bld) SPECIMEN NOTES SUBOPTIMAL VOLUME OF BLOOD COLLECTED, RESULTS MAY BE AFFECTED. CULTURE RESULTS NO GROWTH 5 DAYS Normal [facility] Comment on above: Performed By: #### 1 7928-3 #### [facility] ([id number]) [address] [place] [address] BLOOD CULTUREon 10-05-2023 Bacteria identified Aer cx Nom (Bld) CULTURE RESULTS STAPHYLOCOCCUS AUREUS METHICILLIN RESISTANT Staphylcoccus aureus detected by PCR. mecA/C and MREJ gene detected by PCR (MRSA). Organism: STAPHYLOCOCCUS AUREUS Antibiotic Interpretation NATALIA Status CEFAZOLIN R F CLINDAMYCIN R >=4 F OXACILLIN R >=4 F TRIMETH/SULFAMETHOXAZOLE S <=.5/9.5 F VANCOMYCIN S 1 F DAPTOMYCIN S 0.25 F DOXYCYCLINE S 2 F Susceptible [facility] Comment on above: Performed By: #### 1 7928-3 #### [facility] ([id number]) [address] [place] [address] Calcium [Mass/volume] in Ser um or PlasmaOrdered By: Jesus Alberto Aquino on 08-20-2023 Calcium [Mass/Vol] 7.5 mg/dL 8.6-10.3 [facility] Carbon dioxide, total [Moles /volume] in Serum or PlasmaOrdered By: Jesus Alberto Aquino on 08-20-2023 CO2 [Moles/Vol] 25.5 mmol/L 21.0-31.0 [facility] Chloride [Moles/volume] in S kaveh or PlasmaOrdered By: Jesus Alberto Aquino on 08-20-2023 Chloride [Moles/Vol] 109 mmol/L 98-107 [facility] Creatinine [Mass/volume] in Serum or PlasmaOrdered By: Jesus Alberto Aquino on 08-20-2023 Creatinine [Mass/Vol] 1.08 mg/dL 0.60-1.20 [facility] Comment on above: Delta: 1.60 on 08/19 Glucose [Mass/volume] in Ser um or PlasmaOrdered By: Jesus Alberto Aquino on 08-20-2023 Glucose [Mass/Vol] 57 mg/dL 70-100 [facility] Comment on above: ADA recommended refe rence rangeRandom Glucose Reference Range is dependent on time and content of last meal. Glucose of more than 200 mg/dL in a nonstressed, ambulatory subject supports the diagnosis of Diabetes Mellitus. No Panel InformationOrdered By: Jesus Alberto Aquino on 08-20-2023 Estimated GFR (CKD-EPI) 52.905 mL/Min [facility] Creatinine Clearance (Chem 41.58 [facility] Potassium [Moles/volume] in Serum or PlasmaOrdered By: Jesus Alberto Aquino on 08-20-2023 Potassium [Moles/Vol] 4.2 mmol/L 3.5-5.1 [facility] Serum or plasma anion gap de terminationOrdered By: Jesus Alberto Aquino on 08-20-2023 Anion gap [Moles/Vol] 12.7 mmol/L 6.0-15.0 [facility] Sodium [Moles/volume] in Ser um or PlasmaOrdered By: Jesus Alberto Aquino on 08-20-2023 Sodium [Moles/Vol] 143 mmol/L 136-145 [facility] Urea nitrogen [Mass/volume] in Serum or PlasmaOrdered By: Jesus Alberto Aquino on 08-20-2023 Urea nitrogen [Mass/Vol] 19 mg/dL 7-25 [facility] Erythrocyte distribution wid th Auto (RBC) [Ratio]Ordered By: Jesus Alberto Aquino on 08-19-2023 Erythrocyte distribution width (RBC) [Ratio] 17.2 % 11.9-15.3 [facility] Hematocrit Auto (Bld) [Volum e fraction]Ordered By: Jesus Alberto Aquino on 08-19-2023 Hematocrit (Bld) [Volume fraction] 31.8 % 34.0-46.4 [facility] Hemoglobin [Mass/volume] in BloodOrdered By: Jesus Alberto Aquino on 08-19-2023 Hemoglobin (Bld) [Mass/Vol] 10.3 g/dL 11.8-15.4 [facility] Leukocytes [#/volume] correc juma for nucleated erythrocytes in Blood by Automated counOrdered By: Jesus Alberto Aquino on 08-19-2023 WBC corrected for nucl RBC Auto (Bld) [#/Vol] 15.6 10*3/uL 3.8-11.6 [facility] MCH Auto (RBC) [Entitic mass ]Ordered By: Jesus Alberto Aquino on 08-19-2023 MCH (RBC) [Entitic mass] 27.7 pg 24.7-34.3 [facility] MCHC Auto (RBC) [Mass/Vol]Or dered By: Jesus Alberto Aquino on 08-19-2023 MCHC (RBC) [Mass/Vol] 32.4 g/dL 32.0-35.0 [facility] MCV Auto (RBC) [Entitic vol] Ordered By: Jesus Alberto Aquino on 08-19-2023 MCV (RBC) [Entitic vol] 85.4 fL 80-100 [facility] Platelet mean volume Auto (B ld) [Entitic vol]Ordered By: Jesus Alberto Aquino on 08-19-2023 Platelet mean volume (Bld) [Entitic vol] 8.9 fL 6.3-10.7 [facility] Platelets Auto (Bld) [#/Vol] Ordered By: Jesus Alberto Aquino on 08-19-2023 Platelets (Bld) [#/Vol] 201 10*3/uL 150-450 [facility] RBC Auto (Bld) [#/Vol]Ordere d By: Jesus Alberto Aquino on 08-19-2023 RBC (Bld) [#/Vol] 3.72 10*6/uL 3.60-5.00 [facility] Basophils Auto (Bld) [#/Vol] Ordered By: Jesus Alberto Aquino on 08-18-2023 Basophils (Bld) [#/Vol] 0.1 10*3/uL 0.0-0.2 [facility] Basophils/100 WBC Auto (Bld) Ordered By: Jesus Alberto Aquino on 08-18-2023 Basophils/100 WBC (Bld) 0.3 % . [facility] Eosinophils Auto (Bld) [#/Vo l]Ordered By: Jesus Alberto Aquino on 08-18-2023 Eosinophils (Bld) [#/Vol] 0.0 10*3/uL 0.0-0.45 [facility] Eosinophils/100 WBC Auto (Bl d)Ordered By: Jesus Alberto Aquino on 08-18-2023 Eosinophils/100 WBC (Bld) 0.1 % . [facility] Lymphocytes Auto (Bld) [#/Vo l]Ordered By: Jesus Alberto Aquino on 08-18-2023 Lymphocytes (Bld) [#/Vol] 2.8 10*3/uL 1.00-4.8 [facility] Lymphocytes/100 WBC Auto (Bl d)Ordered By: Jesus Alberto Aquino on 08-18-2023 Lymphocytes/100 WBC (Bld) 10.9 % . [facility] Monocytes Auto (Bld) [#/Vol] Ordered By: Jesus Alberto Aquino on 08-18-2023 Monocytes (Bld) [#/Vol] 1.1 10*3/uL 0.0-0.8 [facility] Monocytes/100 WBC Auto (Bld) Ordered By: Jesus Alberto Aquino on 08-18-2023 Monocytes/100 WBC (Bld) 4.4 % . [facility] Neutrophils Auto (Bld) [#/Vo l]Ordered By: Jesus Alberto Aquino on 08-18-2023 Neutrophils (Bld) [#/Vol] 21.6 10*3/uL 1.8-7.7 [facility] Neutrophils/100 WBC Auto (Bl d)Ordered By: Jesus Alberto Aquino on 08-18-2023 Neutrophils/100 WBC (Bld) 84.3 % . [facility] Nucleated erythrocytes [Pres ence] in Blood by Automated countOrdered By: Jesus Alberto Aquino on 08-18-2023 Nucleated RBC Auto Ql (Bld) 0.2 /100{WBC} 0-0.5 [facility] WBC Auto (Bld) [#/Vol]Ordere d By: Jesus Alberto Aquion on 08-18-2023 WBC (Bld) [#/Vol] 25.6 10*3/uL 3.8-11.6 [facility] Activated partial thrombopla stin time (aPTT) in platelet poor plasma by coagulation aOrdered By: Maury Morrissey on 08-17-2023 aPTT Coag (PPP) [Time] 26.3 s 25.1-36.5 [facility] Comment on above: A hematocrit value g reater than 55% may lead to inaccurate results in coagulation testing. Patients having hematocrit values >55% require a special collection tube for coagulation studies. Please contact the laboratory at [phone] for redraw instructions. Alanine aminotransferase [En zymatic activity/volume] in Serum or PlasmaOrdered By: Maury Morrissey on 08-17-2023 ALT [Catalytic activity/Vol] 24 U/L 7-52 [facility] Albumin [Mass/volume] in Ser um or Plasma by Bromocresol green (BCG) dye binding methoOrdered By: Maury Morrissey on 08-17-2023 Albumin BCG dye [Mass/Vol] 3.4 g/dL 3.5-5.7 [facility] Alkaline phosphatase [Enzyma tic activity/volume] in Serum or PlasmaOrdered By: Maury Morrissey on 08-17-2023 ALP [Catalytic activity/Vol] 64 U/L 34-104 [facility] Anisocytosis LM Ql (Bld)Orde red By: Maury Morrissey on 08-17-2023 Anisocytosis Ql (Bld) Moderate [facility] Aspartate aminotransferase [ Enzymatic activity/volume] in Serum or PlasmaOrdered By: Maury Morrissey on 08-17-2023 AST [Catalytic activity/Vol] 23 U/L 13-39 [facility] Automated erythrocytes count in urine sediment (number/area)Ordered By: Maury Morrissey on 08-17-2023 RBC Auto (Urine sed) [#/Area] 0-1 [HPF] 0-4 [facility] Automated leukocytes count i n urine sediment (number/area)Ordered By: Maury Morrissey on 08-17-2023 WBC Auto (Urine sed) [#/Area] 1-2 [HPF] 0-4 [facility] Basophils Auto (Bld) [#/Vol] Ordered By: Maury Morrissey on 08-17-2023 Basophils (Bld) [#/Vol] 0.0 10*3/uL 0.0-0.2 [facility] Basophils/100 WBC Auto (Bld) Ordered By: Maury Morrissey on 08-17-2023 Basophils/100 WBC (Bld) 0.2 % . [facility] Bilirubin Test strip Ql (U)O rdered By: Maury Morrissey on 08-17-2023 Bilirubin Ql (U) Negative Negative [facility] Bilirubin.direct [Mass/volum e] in Serum or PlasmaOrdered By: Maury Morrissey on 08-17-2023 Bilirubin.direct [Mass/Vol] 0.20 mg/dL 0.03-0.18 [facility] Bilirubin.total [Mass/volume ] in Serum or PlasmaOrdered By: Maury Morrissey on 08-17-2023 Bilirubin [Mass/Vol] 0.6 mg/dL 0.3-1.0 [facility] Calcium [Mass/volume] in Ser um or PlasmaOrdered By: Maury Morrissey on 08-17-2023 Calcium [Mass/Vol] 9.1 mg/dL 8.6-10.3 [facility] Carbon dioxide, total [Moles /volume] in Serum or PlasmaOrdered By: Maury Morrissey on 08-17-2023 CO2 [Moles/Vol] 27.3 mmol/L 21.0-31.0 [facility] Chloride [Moles/volume] in S kaveh or PlasmaOrdered By: Maury Morrissey on 08-17-2023 Chloride [Moles/Vol] 97 mmol/L 98-107 [facility] Color Auto (U)Ordered By: Arturo red Yuni on 08-17-2023 Color (U) Yellow Yellow [facility] Creatine kinase [Enzymatic a ctivity/volume] in Serum or PlasmaOrdered By: Maury Morrissey on 08-17-2023 CK [Catalytic activity/Vol] 87 U/L 30-223 [facility] Creatinine [Mass/volume] in Serum or PlasmaOrdered By: Maury Morrissey on 08-17-2023 Creatinine [Mass/Vol] 4.44 mg/dL 0.60-1.20 [facility] Eosinophils Auto (Bld) [#/Vo l]Ordered By: Maury Morrissey on 08-17-2023 Eosinophils (Bld) [#/Vol] 0.0 10*3/uL 0.0-0.45 [facility] Eosinophils/100 WBC Auto (Bl d)Ordered By: Maury Morrissey on 08-17-2023 Eosinophils/100 WBC (Bld) 0.0 % . [facility] Erythrocyte distribution wid th Auto (RBC) [Ratio]Ordered By: Maury Morrissey on 08-17-2023 Erythrocyte distribution width (RBC) [Ratio] 17.6 % 11.9-15.3 [facility] Globulin Calc (S) [Mass/Vol] Ordered By: Maury Morrissey on 08-17-2023 Globulin (S) [Mass/Vol] 3.7 g/dL [facility] Glucose [Mass/volume] in Ser um or PlasmaOrdered By: Maury Morrissey on 08-17-2023 Glucose [Mass/Vol] 79 mg/dL 70-100 [facility] Comment on above: ADA recommended refe rence rangeRandom Glucose Reference Range is dependent on time and content of last meal. Glucose of more than 200 mg/dL in a nonstressed, ambulatory subject supports the diagnosis of Diabetes Mellitus. Hematocrit Auto (Bld) [Volum e fraction]Ordered By: Maury Morrissey on 08-17-2023 Hematocrit (Bld) [Volume fraction] 37.9 % 34.0-46.4 [facility] Hemoglobin [Mass/volume] in BloodOrdered By: Maury Morrissey on 08-17-2023 Hemoglobin (Bld) [Mass/Vol] 12.0 g/dL 11.8-15.4 [facility] Hypochromia LM Ql (Bld)Order ed By: Maury Morrissey on 08-17-2023 Hypochromia Ql (Bld) Slight [facility] INR in Platelet poor plasma by Coagulation assayOrdered By: Maury Morrissey on 08-17-2023 INR Coag (PPP) [Relative time] 1.1 {INR} [facility] Comment on above: INR Therapeutic Rang [...] on 08-17-2023 Ketones (U) [Mass/Vol] Negative Negative [facility] - UrinalysisOrder ed By: Maury Morrissey on 08-17-2023 Hyaline casts LM Ql (Urine sed) 0-8 [LPF] 0-8 [facility] Lactate [Moles/volume] in Se rum or PlasmaOrdered By: Maury Morrissey on 08-17-2023 Lactate [Moles/Vol] 1.1 mmol/L 0.5-2.2 [facility] Leukocytes [#/volume] correc juma for nucleated erythrocytes in Blood by Automated counOrdered By: Maury Morrissey on 08-17-2023 WBC corrected for nucl RBC Auto (Bld) [#/Vol] 29.3 10*3/uL 3.8-11.6 [facility] Lymphocytes Auto (Bld) [#/Vo l]Ordered By: Maury Morrissey on 08-17-2023 Lymphocytes (Bld) [#/Vol] 2.3 10*3/uL 1.00-4.8 [facility] Lymphocytes/100 WBC Auto (Bl d)Ordered By: Maury Morrissey on 08-17-2023 Lymphocytes/100 WBC (Bld) 7.8 % . [facility] MCH Auto (RBC) [Entitic mass ]Ordered By: Maury Morrissey on 08-17-2023 MCH (RBC) [Entitic mass] 27.3 pg 24.7-34.3 [facility] MCHC Auto (RBC) [Mass/Vol]Or dered By: Maury Morrissey on 08-17-2023 MCHC (RBC) [Mass/Vol] 31.6 g/dL 32.0-35.0 [facility] MCV Auto (RBC) [Entitic vol] Ordered By: Maury Morrissey on 08-17-2023 MCV (RBC) [Entitic vol] 86.4 fL 80-100 [facility] Monocyte distribution width [Entitic volume] in Blood by AutomatedOrdered By: Maury Morrissey on 08-17-2023 Monocyte distribution width Auto (Bld) [Entitic vol] 23.25 % 0.00-20.00 [facility] Comment on above: For adults in ED, MD W > 20.0 may be associated with a higher risk of sepsis during the first 12 hrs of hospital admission Monocytes Auto (Bld) [#/Vol] Ordered By: Maury Morrissey on 08-17-2023 Monocytes (Bld) [#/Vol] 1.6 10*3/uL 0.0-0.8 [facility] Monocytes/100 WBC Auto (Bld) Ordered By: Maury Morrissey on 08-17-2023 Monocytes/100 WBC (Bld) 5.5 % . [facility] Natriuretic peptide B [Mass/ Vol]Ordered By: Maury Morrissey on 08-17-2023 Natriuretic peptide B (Bld) [Mass/Vol] 68.0 pg/mL 5-100 [facility] Neutrophils Auto (Bld) [#/Vo l]Ordered By: Maury Morrissey on 08-17-2023 Neutrophils (Bld) [#/Vol] 25.4 10*3/uL 1.8-7.7 [facility] Neutrophils/100 WBC Auto (Bl d)Ordered By: Maury Morrissey on 08-17-2023 Neutrophils/100 WBC (Bld) 86.5 % . [facility] Nitrite Test strip Ql (U)Ord ered By: Maury Morrissey on 08-17-2023 Nitrite Ql (U) Negative Negative [facility] No Panel InformationOrdered By: Maury Morrissey on 08-17-2023 Estimated GFR (CKD-EPI) 9.700 mL/Min [facility] Creatinine Clearance (Chem 10.00 [facility] Nucleated erythrocytes [Pres ence] in Blood by Automated countOrdered By: Maury Morrissey on 08-17-2023 Nucleated RBC Auto Ql (Bld) 0.1 /100{WBC} 0-0.5 [facility] Platelet adequacy [Presence] in Blood by Light microscopyOrdered By: Maury Morrissey on 08-17-2023 Platelets LM Ql (Bld) Normal Normal [facility] Platelet mean volume Auto (B ld) [Entitic vol]Ordered By: Maury Morrissey on 08-17-2023 Platelet mean volume (Bld) [Entitic vol] 8.8 fL 6.3-10.7 [facility] Platelet morphology finding [Identifier] in BloodOrdered By: Maury Morrissey on 08-17-2023 Platelet morphology finding Nom (Bld) Normal Normal [facility] Platelets Auto (Bld) [#/Vol] Ordered By: Maury Morrissey on 08-17-2023 Platelets (Bld) [#/Vol] 298 10*3/uL 150-450 [facility] Polychromasia [Presence] in Blood by Light microscopyOrdered By: Maury Morrissey on 08-17-2023 Polychromasia LM Ql (Bld) Slight [facility] Potassium [Moles/volume] in Serum or PlasmaOrdered By: Maury Morrissey on 08-17-2023 Potassium [Moles/Vol] 4.5 mmol/L 3.5-5.1 [facility] Protein Auto test strip (U) [Mass/Vol]Ordered By: Maury Morrissey on 08-17-2023 Protein (U) [Mass/Vol] Negative Negative [facility] Protein [Mass/volume] in Ser um or PlasmaOrdered By: Maury Morrissey on 08-17-2023 Protein [Mass/Vol] 7.1 g/dL 6.4-8.9 [facility] Prothrombin time (PT)Ordered By: Maury Morrissey on 08-17-2023 PT Coag (PPP) [Time] 12.6 s 9.0-12.9 [facility] Comment on above: A hematocrit value g reater than 55% may lead to inaccurate results in coagulation testing. Patients having hematocrit values >55% require a special collection tube for coagulation studies. Please contact the laboratory at [phone] for redraw instructions. RBC Auto (Bld) [#/Vol]Ordere d By: Maury Morrissey on 08-17-2023 RBC (Bld) [#/Vol] 4.39 10*6/uL 3.60-5.00 [facility] RBC morphologyOrdered By: Arturo Morrissey on 08-17-2023 RBC morphology finding Nom (Bld) N/A [facility] Serum or plasma albumin/glob ulin mass ratioOrdered By: Maury Morrissey on 08-17-2023 Albumin/Globulin [Mass ratio] 0.9 {ratio} [facility] Serum or plasma anion gap de terminationOrdered By: Maury Morrissey on 08-17-2023 Anion gap [Moles/Vol] 23.2 mmol/L 6.0-15.0 [facility] Serum or plasma non-glucuron idated bilirubin measurement (mass/volume)Ordered By: Maury Morrissey on 08-17-2023 Bilirubin.indirect [Mass/Vol] 0.4 mg/dL [facility] Sodium [Moles/volume] in Ser um or PlasmaOrdered By: Maury Morrissey on 08-17-2023 Sodium [Moles/Vol] 143 mmol/L 136-145 [facility] Specific gravity Auto test s trip (U) [Rel density]Ordered By: Maury Morrissey on 08-17-2023 Specific gravity (U) [Rel density] 1.008 1.001-1.03 0 [facility] Squamous epithelial cells de tection in urine sediment by light microscopyOrdered By: Maury Morrissey on 08-17-2023 Epithelial cells.squamous LM Ql (Urine sed) None seen [HPF] 0-2 [facility] Troponin I.cardiac [Mass/vol ume] in Serum or Plasma by Detection limit <= 0.01 ng/Ordered By: Maury Morrissey on 08-17-2023 Troponin I.cardiac DL <= 0.01 ng/mL [Mass/Vol] 38.1 pg/mL 0.0-15.0 [facility] Urea nitrogen [Mass/volume] in Serum or PlasmaOrdered By: Maury Morrissey on 08-17-2023 Urea nitrogen [Mass/Vol] 92 mg/dL 7-25 [facility] Urine bacteria detection by automated methodOrdered By: Maury Morrissey on 08-17-2023 Bacteria Auto Ql (U) 1+ None Seen [facility] Urine clarity by refractomet ry automatedOrdered By: Maury Morrissey on 08-17-2023 Clarity Refractometry automated (U) Clear Clear [facility] Urine glucose measurement by automated test strip (mass/volume)Ordered By: Maury Morrissey on 08-17-2023 Glucose Auto test strip (U) [Mass/Vol] Normal mg/dL Normal [facility] Urine hemoglobin detection b y automated test stripOrdered By: Maury Morrissey on 08-17-2023 Hemoglobin Auto test strip Ql (U) Trace Negative [facility] Urine leukocyte esterase det ection by automated test stripOrdered By: Maury Morrissey on 08-17-2023 Leukocyte esterase Auto test strip Ql (U) Negative Negative [facility] Urobilinogen Auto test strip (U) [Mass/Vol]Ordered By: Maury Morrissey on 08-17-2023 Urobilinogen (U) [Mass/Vol] Normal mg/dL Normal [facility] WBC Auto (Bld) [#/Vol]Ordere d By: Maury Morrissey on 08-17-2023 WBC (Bld) [#/Vol] 29.3 10*3/uL 3.8-11.6 [facility] pH Auto test strip (U)Ordere d By: Maury Morrissey on 08-17-2023 pH (U) 5.5 [pH] 5.0-9.0 [facility] Anisocytosis LM Ql (Bld)Orde red By: Bhavesh Cristobal on 07-14-2023 Anisocytosis Ql (Bld) Marked [facility] Basophils Auto (Bld) [#/Vol] Ordered By: Bhavesh Cristobal on 07-14-2023 Basophils (Bld) [#/Vol] 0.1 10*3/uL 0.0-0.2 [facility] Basophils/100 WBC Auto (Bld) Ordered By: Bhavesh Cristobal on 07-14-2023 Basophils/100 WBC (Bld) 0.3 % . [facility] Calcium [Mass/volume] in Ser um or PlasmaOrdered By: Bhavesh Cristobal on 07-14-2023 Calcium [Mass/Vol] 8.0 mg/dL 8.6-10.3 [facility] Carbon dioxide, total [Moles /volume] in Serum or PlasmaOrdered By: Bhavesh Cristobal on 07-14-2023 CO2 [Moles/Vol] 28.1 mmol/L 21.0-31.0 [facility] Chloride [Moles/volume] in S kaveh or PlasmaOrdered By: Bhavesh Cristobal on 07-14-2023 Chloride [Moles/Vol] 110 mmol/L 98-107 [facility] Creatinine [Mass/volume] in Serum or PlasmaOrdered By: Bhavesh Cristobal on 07-14-2023 Creatinine [Mass/Vol] 1.10 mg/dL 0.60-1.20 [facility] Eosinophils Auto (Bld) [#/Vo l]Ordered By: Bhavesh Cristobal on 07-14-2023 Eosinophils (Bld) [#/Vol] 0.1 10*3/uL 0.0-0.45 [facility] Eosinophils/100 WBC Auto (Bl d)Ordered By: Bhavesh Cristobal on 07-14-2023 Eosinophils/100 WBC (Bld) 0.4 % . [facility] Erythrocyte distribution wid th Auto (RBC) [Ratio]Ordered By: Bhavesh Cristobal on 07-14-2023 Erythrocyte distribution width (RBC) [Ratio] 22.8 % 11.9-15.3 [facility] Glucose Glucometer (BldC) [M ass/Vol]Ordered By: Jolanta Mckenzie on 07-14-2023 Glucose [Mass/Vol] 80 mg/dL [facility] Comment on above: Random Glucose Refer ence Range is dependent on time and content of last meal. Glucose of more than 200 mg/dL in a nonstressed, ambulatory subject supports the diagnosis of Diabetes Mellitus. Glucose [Mass/volume] in Ser um or PlasmaOrdered By: Bhavesh Cristobal on 07-14-2023 Glucose [Mass/Vol] 84 mg/dL 70-100 [facility] Comment on above: ADA recommended refe rence rangeRandom Glucose Reference Range is dependent on time and content of last meal. Glucose of more than 200 mg/dL in a nonstressed, ambulatory subject supports the diagnosis of Diabetes Mellitus. Hematocrit Auto (Bld) [Volum e fraction]Ordered By: Bhavesh Cristobal on 07-14-2023 Hematocrit (Bld) [Volume fraction] 33.6 % 34.0-46.4 [facility] Hemoglobin [Mass/volume] in BloodOrdered By: Bhavesh Cristobal on 07-14-2023 Hemoglobin (Bld) [Mass/Vol] 10.5 g/dL 11.8-15.4 [facility] Hypochromia LM Ql (Bld)Order ed By: Bhavesh Cristobal on 07-14-2023 Hypochromia Ql (Bld) Slight [facility] Leukocytes [#/volume] correc juma for nucleated erythrocytes in Blood by Automated counOrdered By: Bhavesh Cristobal on 07-14-2023 WBC corrected for nucl RBC Auto (Bld) [#/Vol] 19.3 10*3/uL 3.8-11.6 [facility] Lymphocytes Auto (Bld) [#/Vo l]Ordered By: Bhavesh Cristobal on 07-14-2023 Lymphocytes (Bld) [#/Vol] 4.3 10*3/uL 1.00-4.8 [facility] Lymphocytes/100 WBC Auto (Bl d)Ordered By: Bhavesh Cristobal on 07-14-2023 Lymphocytes/100 WBC (Bld) 22.1 % . [facility] MCH Auto (RBC) [Entitic mass ]Ordered By: Bhavesh Cristobal on 07-14-2023 MCH (RBC) [Entitic mass] 26.2 pg 24.7-34.3 [facility] MCHC Auto (RBC) [Mass/Vol]Or dered By: Bhavesh Cristobal on 07-14-2023 MCHC (RBC) [Mass/Vol] 31.2 g/dL 32.0-35.0 [facility] MCV Auto (RBC) [Entitic vol] Ordered By: Bhavesh Cristobal on 07-14-2023 MCV (RBC) [Entitic vol] 84.0 fL 80-100 [facility] Monocytes Auto (Bld) [#/Vol] Ordered By: Bhvaesh Cristobal on 07-14-2023 Monocytes (Bld) [#/Vol] 1.4 10*3/uL 0.0-0.8 [facility] Monocytes/100 WBC Auto (Bld) Ordered By: Bhavesh Cristobal on 07-14-2023 Monocytes/100 WBC (Bld) 7.3 % . [facility] Neutrophils Auto (Bld) [#/Vo l]Ordered By: Bhavesh Cristobal on 07-14-2023 Neutrophils (Bld) [#/Vol] 13.5 10*3/uL 1.8-7.7 [facility] Neutrophils/100 WBC Auto (Bl d)Ordered By: Bhavesh Cristobal on 07-14-2023 Neutrophils/100 WBC (Bld) 69.9 % . [facility] No Panel InformationOrdered By: Bhavesh Cristobal on 07-14-2023 Estimated GFR (CKD-EPI) 51.753 mL/Min [facility] Creatinine Clearance (Chem 42.83 [facility] Nucleated erythrocytes [Pres ence] in Blood by Automated countOrdered By: Bhavesh Cristobal on 07-14-2023 Nucleated RBC Auto Ql (Bld) 0.1 /100{WBC} 0-0.5 [facility] Platelet adequacy [Presence] in Blood by Light microscopyOrdered By: Bhavesh Cristobal on 07-14-2023 Platelets LM Ql (Bld) Normal Normal [facility] Platelet mean volume Auto (B ld) [Entitic vol]Ordered By: Bhavesh Cristobal on 07-14-2023 Platelet mean volume (Bld) [Entitic vol] 7.9 fL 6.3-10.7 [facility] Platelet morphology finding [Identifier] in BloodOrdered By: Bhavesh Cristobal on 07-14-2023 Platelet morphology finding Nom (Bld) Normal Normal [facility] Platelets Auto (Bld) [#/Vol] Ordered By: Bhavesh Cristobal on 07-14-2023 Platelets (Bld) [#/Vol] 238 10*3/uL 150-450 [facility] Polychromasia [Presence] in Blood by Light microscopyOrdered By: Bhavesh Cristobal on 07-14-2023 Polychromasia LM Ql (Bld) Slight [facility] Potassium [Moles/volume] in Serum or PlasmaOrdered By: Bhavesh Cristobal on 07-14-2023 Potassium [Moles/Vol] 4.2 mmol/L 3.5-5.1 [facility] RBC Auto (Bld) [#/Vol]Ordere d By: Bhavesh Cristobal on 07-14-2023 RBC (Bld) [#/Vol] 4.00 10*6/uL 3.60-5.00 [facility] RBC morphologyOrdered By: Wilber Cristobal on 07-14-2023 RBC morphology finding Nom (Bld) N/A [facility] Serum or plasma anion gap de terminationOrdered By: Bhavesh Cristobal on 07-14-2023 Anion gap [Moles/Vol] 9.1 mmol/L 6.0-15.0 [facility] Sodium [Moles/volume] in Ser um or PlasmaOrdered By: Bhavesh Cristobal on 07-14-2023 Sodium [Moles/Vol] 143 mmol/L 136-145 [facility] Urea nitrogen [Mass/volume] in Serum or PlasmaOrdered By: Bhavesh Cristobal on 07-14-2023 Urea nitrogen [Mass/Vol] 24 mg/dL 7-25 [facility] WBC Auto (Bld) [#/Vol]Ordere d By: Bhavesh Cristobal on 07-14-2023 WBC (Bld) [#/Vol] 19.3 10*3/uL 3.8-11.6 [facility] Alanine aminotransferase [En zymatic activity/volume] in Serum or PlasmaOrdered By: Jolanta Mckenzie on 07-12-2023 ALT [Catalytic activity/Vol] 16 U/L 7-52 [facility] Albumin [Mass/volume] in Ser um or Plasma by Bromocresol green (BCG) dye binding methoOrdered By: Jolanta Mckenzie on 07-12-2023 Albumin BCG dye [Mass/Vol] 3.0 g/dL 3.5-5.7 [facility] Alkaline phosphatase [Enzyma tic activity/volume] in Serum or PlasmaOrdered By: Jolanta Mckenzie on 07-12-2023 ALP [Catalytic activity/Vol] 45 U/L 34-104 [facility] Aspartate aminotransferase [ Enzymatic activity/volume] in Serum or PlasmaOrdered By: Jolanta Mckenzie on 07-12-2023 AST [Catalytic activity/Vol] 14 U/L 13-39 [facility] Bilirubin.total [Mass/volume ] in Serum or PlasmaOrdered By: Jolanta Mckenzie on 07-12-2023 Bilirubin [Mass/Vol] 0.3 mg/dL 0.3-1.0 [facility] Globulin Calc (S) [Mass/Vol] Ordered By: Jolanta Mckenzie on 07-12-2023 Globulin (S) [Mass/Vol] 2.7 g/dL [facility] Protein [Mass/volume] in Ser um or PlasmaOrdered By: Jolanta Mckenzie on 07-12-2023 Protein [Mass/Vol] 5.7 g/dL 6.4-8.9 [facility] Serum or plasma albumin/glob ulin mass ratioOrdered By: Jolanta Mckenzie on 07-12-2023 Albumin/Globulin [Mass ratio] 1.1 {ratio} [facility] Acanthocytes [Presence] in B lood by Light microscopyOrdered By: Marshall Dominguez on 07-10-2023 Acanthocytes LM Ql (Bld) Slight [facility] Aerobic cultureOrdered By: Viki Mckenzie on 07-10-2023 Bacteria identified Aer cx Nom (Unsp spec) [facility] Anisocytosis LM Ql (Bld)Orde red By: Marshall Dominguez on 07-10-2023 Anisocytosis Ql (Bld) Moderate [facility] Automated erythrocytes count in urine sediment (number/area)Ordered By: Marshall Dominguez on 07-10-2023 RBC Auto (Urine sed) [#/Area] 3-4 [HPF] 0-4 [facility] Automated leukocytes count i n urine sediment (number/area)Ordered By: Marshall Dominguez on 07-10-2023 WBC Auto (Urine sed) [#/Area] Innumerable [HPF] 0-4 [facility] Bacterial blood cultureOrder ed By: Marshall Dominguez on 07-10-2023 Bacteria identified Cx Nom (Bld) NO GROWTH 5 DAYS [facility] Basophils Auto (Bld) [#/Vol] Ordered By: Marshall Dominguez on 07-10-2023 Basophils (Bld) [#/Vol] 0.0 10*3/uL 0.0-0.2 [facility] Basophils/100 WBC Auto (Bld) Ordered By: Marshall Dominguez on 07-10-2023 Basophils/100 WBC (Bld) 0.2 % . [facility] Bilirubin Test strip Ql (U)O rdered By: Marshall Dominguez on 07-10-2023 Bilirubin Ql (U) Negative Negative [facility] Calcium [Mass/volume] in Ser um or PlasmaOrdered By: Marshall Dominguez on 07-10-2023 Calcium [Mass/Vol] 8.9 mg/dL 8.6-10.3 [facility] Carbon dioxide, total [Moles /volume] in Serum or PlasmaOrdered By: Marshall Dominguez on 07-10-2023 CO2 [Moles/Vol] 32.4 mmol/L 21.0-31.0 [facility] Chloride [Moles/volume] in S kaveh or PlasmaOrdered By: Marshall Dominguez on 07-10-2023 Chloride [Moles/Vol] 105 mmol/L 98-107 [facility] Color Auto (U)Ordered By: Ruslan Dominguez on 07-10-2023 Color (U) Yellow Yellow [facility] Creatinine [Mass/volume] in Serum or PlasmaOrdered By: Marshall Dominguez on 07-10-2023 Creatinine [Mass/Vol] 1.56 mg/dL 0.60-1.20 [facility] Eosinophils Auto (Bld) [#/Vo l]Ordered By: Marshall Dominguez on 07-10-2023 Eosinophils (Bld) [#/Vol] 0.1 10*3/uL 0.0-0.45 [facility] Eosinophils/100 WBC Auto (Bl d)Ordered By: Marshall Dominguez on 07-10-2023 Eosinophils/100 WBC (Bld) 0.4 % . [facility] Erythrocyte distribution wid th Auto (RBC) [Ratio]Ordered By: Marshall Dominguez on 07-10-2023 Erythrocyte distribution width (RBC) [Ratio] 22.2 % 11.9-15.3 [facility] Glucose [Mass/volume] in Ser um or PlasmaOrdered By: Marshall Dominguez on 07-10-2023 Glucose [Mass/Vol] 83 mg/dL 70-100 [facility] Comment on above: ADA recommended refe rence rangeRandom Glucose Reference Range is dependent on time and content of last meal. Glucose of more than 200 mg/dL in a nonstressed, ambulatory subject supports the diagnosis of Diabetes Mellitus. Gram stain for investigation of transfusion reactionOrdered By: Jolanta Mckenzie on 07-10-2023 Microscopic observation Gram stain Nom (Unsp spec) [facility] Hematocrit Auto (Bld) [Volum e fraction]Ordered By: Marshall Dominguez on 07-10-2023 Hematocrit (Bld) [Volume fraction] 34.4 % 34.0-46.4 [facility] Hemoglobin [Mass/volume] in BloodOrdered By: Marshall Dominguez on 07-10-2023 Hemoglobin (Bld) [Mass/Vol] 11.0 g/dL 11.8-15.4 [facility] Hypochromia LM Ql (Bld)Order ed By: Marshall Dominguez on 07-10-2023 Hypochromia Ql (Bld) Slight [facility] INR in Platelet poor plasma by Coagulation assayOrdered By: Marshall Dominguez on 07-10-2023 INR Coag (PPP) [Relative time] 0.9 {INR} [facility] Comment on above: INR Therapeutic Rang [...] 07-10-2023 Ketones (U) [Mass/Vol] Negative Negative [facility] Laboratory - UrinalysisOrder ed By: Marshall Dominguez on 07-10-2023 Hyaline casts LM Ql (Urine sed) 0-8 [LPF] 0-8 [facility] Lactate [Moles/volume] in Se rum or PlasmaOrdered By: Marshall Dominguez on 07-10-2023 Lactate [Moles/Vol] 1.6 mmol/L 0.5-2.2 [facility] Leukocytes [#/volume] correc juma for nucleated erythrocytes in Blood by Automated counOrdered By: Marshall Dominguez on 07-10-2023 WBC corrected for nucl RBC Auto (Bld) [#/Vol] 21.3 10*3/uL 3.8-11.6 [facility] Lymphocytes Auto (Bld) [#/Vo l]Ordered By: Marshall Dominguez on 07-10-2023 Lymphocytes (Bld) [#/Vol] 6.7 10*3/uL 1.00-4.8 [facility] Lymphocytes/100 WBC Auto (Bl d)Ordered By: Marshall Dominguez on 07-10-2023 Lymphocytes/100 WBC (Bld) 31.5 % . [facility] MCH Auto (RBC) [Entitic mass ]Ordered By: Marshall Dominguez on 07-10-2023 MCH (RBC) [Entitic mass] 26.5 pg 24.7-34.3 [facility] MCHC Auto (RBC) [Mass/Vol]Or dered By: Marshall Dominguez on 07-10-2023 MCHC (RBC) [Mass/Vol] 32.0 g/dL 32.0-35.0 [facility] MCV Auto (RBC) [Entitic vol] Ordered By: Marshall Dominguez on 07-10-2023 MCV (RBC) [Entitic vol] 82.7 fL 80-100 [facility] Microcytes LM Ql (Bld)Ordere d By: Marshall Dominguez on 07-10-2023 Microcytes Ql (Bld) Moderate [facility] Monocytes Auto (Bld) [#/Vol] Ordered By: Marshall Dominguez on 07-10-2023 Monocytes (Bld) [#/Vol] 1.4 10*3/uL 0.0-0.8 [facility] Monocytes/100 WBC Auto (Bld) Ordered By: Marshall Dominguez on 07-10-2023 Monocytes/100 WBC (Bld) 6.5 % . [facility] Natriuretic peptide B [Mass/ Vol]Ordered By: Marshall Dominguez on 07-10-2023 Natriuretic peptide B (Bld) [Mass/Vol] 54.0 pg/mL 5-100 [facility] Neutrophils Auto (Bld) [#/Vo l]Ordered By: Marshall Dominguez on 07-10-2023 Neutrophils (Bld) [#/Vol] 13.1 10*3/uL 1.8-7.7 [facility] Neutrophils/100 WBC Auto (Bl d)Ordered By: Marshall Dominguez on 07-10-2023 Neutrophils/100 WBC (Bld) 61.4 % . [facility] Nitrite Test strip Ql (U)Ord ered By: Marshall Dominguez on 07-10-2023 Nitrite Ql (U) Positive Negative [facility] No Panel InformationOrdered By: Marshall Dominguez on 07-10-2023 Estimated GFR (CKD-EPI) 34.030 mL/Min [facility] Creatinine Clearance (Chem N/A [facility] Nucleated erythrocytes [Pres ence] in Blood by Automated countOrdered By: Marshall Dominguez on 07-10-2023 Nucleated RBC Auto Ql (Bld) 0.1 /100{WBC} 0-0.5 [facility] Ovalocyte detectionOrdered B y: Marshall Dominguez on 07-10-2023 Ovalocytes LM Ql (Bld) Slight [facility] Platelet adequacy [Presence] in Blood by Light microscopyOrdered By: Marshall Dominguez on 07-10-2023 Platelets LM Ql (Bld) Normal Normal [facility] Platelet mean volume Auto (B ld) [Entitic vol]Ordered By: Marshall Dominguez on 07-10-2023 Platelet mean volume (Bld) [Entitic vol] 8.0 fL 6.3-10.7 [facility] Platelet morphology finding [Identifier] in BloodOrdered By: Marshall Dominguez on 07-10-2023 Platelet morphology finding Nom (Bld) N/A [facility] Platelets Auto (Bld) [#/Vol] Ordered By: Marshall Dominguez on 07-10-2023 Platelets (Bld) [#/Vol] 250 10*3/uL 150-450 [facility] Poikilocytosis [Presence] in Blood by Light microscopyOrdered By: Marshall Dominguez on 07-10-2023 Poikilocytosis LM Ql (Bld) Slight [facility] Polychromasia [Presence] in Blood by Light microscopyOrdered By: Marshall Dominguez on 07-10-2023 Polychromasia LM Ql (Bld) Slight [facility] Potassium [Moles/volume] in Serum or PlasmaOrdered By: Marshall Dominguez on 07-10-2023 Potassium [Moles/Vol] 3.9 mmol/L 3.5-5.1 [facility] Protein Auto test strip (U) [Mass/Vol]Ordered By: Marshall Dominguez on 07-10-2023 Protein (U) [Mass/Vol] 30 mg/dL Negative [facility] Prothrombin time (PT)Ordered By: Marshall Dominguez on 07-10-2023 PT Coag (PPP) [Time] 10.6 s 9.0-12.9 [facility] Comment on above: A hematocrit value g reater than 55% may lead to inaccurate results in coagulation testing. Patients having hematocrit values >55% require a special collection tube for coagulation studies. Please contact the laboratory at [phone] for redraw instructions. RBC Auto (Bld) [#/Vol]Ordere d By: Marshall Dominguez on 07-10-2023 RBC (Bld) [#/Vol] 4.17 10*6/uL 3.60-5.00 [facility] RBC morphologyOrdered By: Ruslan Dominguez on 07-10-2023 RBC morphology finding Nom (Bld) N/A [facility] Serum or plasma anion gap de terminationOrdered By: Marshall Dominguez on 07-10-2023 Anion gap [Moles/Vol] 9.5 mmol/L 6.0-15.0 [facility] Sodium [Moles/volume] in Ser um or PlasmaOrdered By: Marshall Dominguez on 07-10-2023 Sodium [Moles/Vol] 143 mmol/L 136-145 [facility] Specific gravity Auto test s trip (U) [Rel density]Ordered By: Marshall Dominguez on 07-10-2023 Specific gravity (U) [Rel density] 1.022 1.001-1.03 0 [facility] Squamous epithelial cells de tection in urine sediment by light microscopyOrdered By: Marshall Dominguez on 07-10-2023 Epithelial cells.squamous LM Ql (Urine sed) 1-2 [HPF] 0-2 [facility] Teardrop cell detectionOrder ed By: Marshall Dominguez on 07-10-2023 Dacrocytes LM Ql (Bld) Slight [facility] Troponin I.cardiac [Mass/vol ume] in Serum or Plasma by Detection limit <= 0.01 ng/Ordered By: Marshall Dominguez on 07-10-2023 Troponin I.cardiac DL <= 0.01 ng/mL [Mass/Vol] 11.7 pg/mL 0.0-15.0 [facility] Urea nitrogen [Mass/volume] in Serum or PlasmaOrdered By: Marshall Dominguez on 07-10-2023 Urea nitrogen [Mass/Vol] 36 mg/dL 7-25 [facility] Urine bacteria detection by automated methodOrdered By: Marshall Dominguez on 07-10-2023 Bacteria Auto Ql (U) 2+ None Seen [facility] Urine clarity by refractomet ry automatedOrdered By: Marshall Dominguez on 07-10-2023 Clarity Refractometry automated (U) Cloudy Clear [facility] Urine culture routineOrdered By: Marshall Dominguez on 07-10-2023 Bacteria identified Cx Nom (U) Proteus mirabilis [facility] Urine glucose measurement by automated test strip (mass/volume)Ordered By: Marshall Dominguez on 07-10-2023 Glucose Auto test strip (U) [Mass/Vol] Normal mg/dL Normal [facility] Urine hemoglobin detection b y automated test stripOrdered By: Marshall Dominguez on 07-10-2023 Hemoglobin Auto test strip Ql (U) Negative Negative [facility] Urine leukocyte esterase det ection by automated test stripOrdered By: Marshall Dominguez on 07-10-2023 Leukocyte esterase Auto test strip Ql (U) 4+ Negative [facility] Urobilinogen Auto test strip (U) [Mass/Vol]Ordered By: Marshall Dominguez on 07-10-2023 Urobilinogen (U) [Mass/Vol] Normal mg/dL Normal [facility] WBC Auto (Bld) [#/Vol]Ordere d By: Marshall Dominguez on 07-10-2023 WBC (Bld) [#/Vol] 21.3 10*3/uL 3.8-11.6 [facility] pH Auto test strip (U)Ordere d By: Marshall Dominguez on 07-10-2023 pH (U) 8.5 [pH] 5.0-9.0 [facility] Alanine aminotransferase [En zymatic activity/volume] in Serum or PlasmaOrdered By: Kadie Bullimore on 06-17-2023 ALT [Catalytic activity/Vol] 14 U/L 7-52 [facility] Albumin [Mass/volume] in Ser um or Plasma by Bromocresol green (BCG) dye binding methoOrdered By: Kadie Bullimore on 06-17-2023 Albumin BCG dye [Mass/Vol] 3.4 g/dL 3.5-5.7 [facility] Alkaline phosphatase [Enzyma tic activity/volume] in Serum or PlasmaOrdered By: Kadie Bullimore on 06-17-2023 ALP [Catalytic activity/Vol] 48 U/L 34-104 [facility] Aspartate aminotransferase [ Enzymatic activity/volume] in Serum or PlasmaOrdered By: Kadie Bullimore on 06-17-2023 AST [Catalytic activity/Vol] 15 U/L 13-39 [facility] Basophils Auto (Bld) [#/Vol] Ordered By: Kadie Bullimore on 06-17-2023 Basophils (Bld) [#/Vol] 0.1 10*3/uL 0.0-0.2 [facility] Basophils/100 WBC Auto (Bld) Ordered By: Kadie Bullimore on 06-17-2023 Basophils/100 WBC (Bld) 0.3 % . [facility] Bilirubin.total [Mass/volume ] in Serum or PlasmaOrdered By: Kadie Bullimore on 06-17-2023 Bilirubin [Mass/Vol] 0.4 mg/dL 0.3-1.0 [facility] Calcium [Mass/volume] in Ser um or PlasmaOrdered By: Kadie Bullimore on 06-17-2023 Calcium [Mass/Vol] 9.5 mg/dL 8.6-10.3 [facility] Carbon dioxide, total [Moles /volume] in Serum or PlasmaOrdered By: Kadie Bullimore on 06-17-2023 CO2 [Moles/Vol] 34.6 mmol/L 21.0-31.0 [facility] Chloride [Moles/volume] in S kaveh or PlasmaOrdered By: Kadie Bullimore on 06-17-2023 Chloride [Moles/Vol] 104 mmol/L 98-107 [facility] Creatinine [Mass/volume] in Serum or PlasmaOrdered By: Kadie Bullimore on 06-17-2023 Creatinine [Mass/Vol] 1.24 mg/dL 0.60-1.20 [facility] Eosinophils Auto (Bld) [#/Vo l]Ordered By: Kadie Bullimore on 06-17-2023 Eosinophils (Bld) [#/Vol] 0.0 10*3/uL 0.0-0.45 [facility] Eosinophils/100 WBC Auto (Bl d)Ordered By: Kadie Bullimore on 06-17-2023 Eosinophils/100 WBC (Bld) 0.2 % . [facility] Erythrocyte distribution wid th Auto (RBC) [Ratio]Ordered By: Kadie Bullimore on 06-17-2023 Erythrocyte distribution width (RBC) [Ratio] 21.5 % 11.9-15.3 [facility] Globulin Calc (S) [Mass/Vol] Ordered By: Kadie Bullimore on 06-17-2023 Globulin (S) [Mass/Vol] 2.9 g/dL [facility] Glucose [Mass/volume] in Ser um or PlasmaOrdered By: Kadie Jones on 06-17-2023 Glucose [Mass/Vol] 103 mg/dL 70-100 [facility] Comment on above: ADA recommended refe rence rangeRandom Glucose Reference Range is dependent on time and content of last meal. Glucose of more than 200 mg/dL in a nonstressed, ambulatory subject supports the diagnosis of Diabetes Mellitus. Hematocrit Auto (Bld) [Volum e fraction]Ordered By: Kadie Jones on 06-17-2023 Hematocrit (Bld) [Volume fraction] 34.6 % 34.0-46.4 [facility] Hemoglobin [Mass/volume] in BloodOrdered By: Kadie Jones on 06-17-2023 Hemoglobin (Bld) [Mass/Vol] 10.9 g/dL 11.8-15.4 [facility] Leukocytes [#/volume] correc juma for nucleated erythrocytes in Blood by Automated counOrdered By: Kadie Jones on 06-17-2023 WBC corrected for nucl RBC Auto (Bld) [#/Vol] 17.4 10*3/uL 3.8-11.6 [facility] Lymphocytes Auto (Bld) [#/Vo l]Ordered By: Kadie Jones on 06-17-2023 Lymphocytes (Bld) [#/Vol] 3.7 10*3/uL 1.00-4.8 [facility] Lymphocytes/100 WBC Auto (Bl d)Ordered By: Kadie Jones on 06-17-2023 Lymphocytes/100 WBC (Bld) 21.2 % . [facility] MCH Auto (RBC) [Entitic mass ]Ordered By: Kadie Jones on 06-17-2023 MCH (RBC) [Entitic mass] 24.8 pg 24.7-34.3 [facility] MCHC Auto (RBC) [Mass/Vol]Or dered By: Kadie Hungimore on 06-17-2023 MCHC (RBC) [Mass/Vol] 31.5 g/dL 32.0-35.0 [facility] MCV Auto (RBC) [Entitic vol] Ordered By: Kadie Jones on 06-17-2023 MCV (RBC) [Entitic vol] 78.7 fL 80-100 [facility] Monocyte distribution width [Entitic volume] in Blood by AutomatedOrdered By: Kadie Bullimore on 06-17-2023 Monocyte distribution width Auto (Bld) [Entitic vol] 20.88 % 0.00-20.00 [facility] Comment on above: For adults in ED, MD W > 20.0 may be associated with a higher risk of sepsis during the first 12 hrs of hospital admission Monocytes Auto (Bld) [#/Vol] Ordered By: Kadie Bullimore on 06-17-2023 Monocytes (Bld) [#/Vol] 1.1 10*3/uL 0.0-0.8 [facility] Monocytes/100 WBC Auto (Bld) Ordered By: Kadie Bullimore on 06-17-2023 Monocytes/100 WBC (Bld) 6.6 % . [facility] Natriuretic peptide B [Mass/ Vol]Ordered By: Kadie Bullimore on 06-17-2023 Natriuretic peptide B (Bld) [Mass/Vol] 109.0 pg/mL 5-100 [facility] Neutrophils Auto (Bld) [#/Vo l]Ordered By: Kadie Bullimore on 06-17-2023 Neutrophils (Bld) [#/Vol] 12.4 10*3/uL 1.8-7.7 [facility] Neutrophils/100 WBC Auto (Bl d)Ordered By: Kadie Hungimore on 06-17-2023 Neutrophils/100 WBC (Bld) 71.7 % . [facility] No Panel InformationOrdered By: Kadie Bullimore on 06-17-2023 Estimated GFR (CKD-EPI) 44.823 mL/Min [facility] Creatinine Clearance (Chem 35.64 [facility] Nucleated erythrocytes [Pres ence] in Blood by Automated countOrdered By: Kadie Hungimore on 06-17-2023 Nucleated RBC Auto Ql (Bld) 0.1 /100{WBC} 0-0.5 [facility] Platelet mean volume Auto (B ld) [Entitic vol]Ordered By: Kadie Bullimore on 06-17-2023 Platelet mean volume (Bld) [Entitic vol] 7.4 fL 6.3-10.7 [facility] Platelets Auto (Bld) [#/Vol] Ordered By: Kadie Bullimore on 06-17-2023 Platelets (Bld) [#/Vol] 257 10*3/uL 150-450 [facility] Potassium [Moles/volume] in Serum or PlasmaOrdered By: Kadie Bullimore on 06-17-2023 Potassium [Moles/Vol] 3.7 mmol/L 3.5-5.1 [facility] Protein [Mass/volume] in Ser um or PlasmaOrdered By: Kadie Bullimore on 06-17-2023 Protein [Mass/Vol] 6.3 g/dL 6.4-8.9 [facility] RBC Auto (Bld) [#/Vol]Ordere d By: Kadie Bullimore on 06-17-2023 RBC (Bld) [#/Vol] 4.39 10*6/uL 3.60-5.00 [facility] Serum or plasma albumin/glob ulin mass ratioOrdered By: Kadie Bullimore on 06-17-2023 Albumin/Globulin [Mass ratio] 1.2 {ratio} [facility] Serum or plasma anion gap de terminationOrdered By: Kadie Bullimore on 06-17-2023 Anion gap [Moles/Vol] 8.1 mmol/L 6.0-15.0 [facility] Sodium [Moles/volume] in Ser um or PlasmaOrdered By: Kadie Bullimore on 06-17-2023 Sodium [Moles/Vol] 143 mmol/L 136-145 [facility] Troponin I.cardiac [Mass/vol ume] in Serum or Plasma by Detection limit <= 0.01 ng/Ordered By: Kadie Bullimore on 06-17-2023 Troponin I.cardiac DL <= 0.01 ng/mL [Mass/Vol] 9.5 pg/mL 0.0-15.0 [facility] Urea nitrogen [Mass/volume] in Serum or PlasmaOrdered By: Kadie Bullimore on 06-17-2023 Urea nitrogen [Mass/Vol] 25 mg/dL 7-25 [facility] WBC Auto (Bld) [#/Vol]Ordere d By: Kadie Jones on 06-17-2023 WBC (Bld) [#/Vol] 17.4 10*3/uL 3.8-11.6 [facility] Anisocytosis LM Ql (Bld)Orde red By: Carla Hagan on 12-31-2022 Anisocytosis Ql (Bld) Moderate [facility] Basophils Auto (Bld) [#/Vol] Ordered By: Carla Hagan on 12-31-2022 Basophils (Bld) [#/Vol] N/A [facility] Basophils/100 WBC Auto (Bld) Ordered By: Carla Hagan on 12-31-2022 Basophils/100 WBC (Bld) N/A [facility] Basophils/100 WBC Manual cnt (Bld)Ordered By: Carla Hagan on 12-31-2022 Basophils/100 WBC (Bld) 1 % 0-2 [facility] Calcium [Mass/volume] in Ser um or PlasmaOrdered By: Carla Hagan on 12-31-2022 Calcium [Mass/Vol] 8.6 mg/dL 8.2-10.2 [facility] Carbon dioxide, total [Moles /volume] in Serum or PlasmaOrdered By: Carla Hagan on 12-31-2022 CO2 [Moles/Vol] 26.2 mmol/L 22.0-30.0 [facility] Chloride [Moles/volume] in S kaveh or PlasmaOrdered By: Carla Hagan on 12-31-2022 Chloride [Moles/Vol] 99 mmol/L 95-114 [facility] Creatinine and Glomerular fi ltration rate.predicted panel (S/P/Bld)Ordered By: Carla Hagan on 12-31-2022 Creatinine [Mass/Vol] 0.99 mg/dL 0.44-1.03 [facility] Eosinophils Auto (Bld) [#/Vo l]Ordered By: Carla Hagan on 12-31-2022 Eosinophils (Bld) [#/Vol] N/A [facility] Eosinophils/100 WBC Auto (Bl d)Ordered By: Carla Hagan on 12-31-2022 Eosinophils/100 WBC (Bld) N/A [facility] Eosinophils/100 WBC Manual c nt (Bld)Ordered By: Carla Hagan on 12-31-2022 Eosinophils/100 WBC (Bld) 1 % 1-3 [facility] Erythrocyte distribution wid th Auto (RBC) [Ratio]Ordered By: Carla Hagan on 12-31-2022 Erythrocyte distribution width (RBC) [Ratio] 15.7 % 11.9-15.3 [facility] Estimated glomerular filtrat ion rate (GFR) non- AmericanOrdered By: Carla Hagan on 12-31-2022 GFR/1.73 sq M.predicted among non-blacks MDRD (S/P/Bld) [Vol rate/Area] 54 mL/Min [facility] Giant platelets/100 leukocyt es [Ratio] in Blood by Manual countOrdered By: Carla Hagan on 12-31-2022 Giant platelets/100 WBC Manual cnt (Bld) [Ratio] 1 /100{WBC} [facility] Glucose [Mass/volume] in Ser um or PlasmaOrdered By: Carla Hagan on 12-31-2022 Glucose [Mass/Vol] 115 mg/dL 70-100 [facility] Comment on above: ADA recommended refe rence rangeRandom Glucose Reference Range is dependent on time and content of last meal. Glucose of more than 200 mg/dL in a nonstressed, ambulatory subject supports the diagnosis of Diabetes Mellitus. Helmet cell detectionOrdered By: Carla Hagan on 12-31-2022 Helmet cells LM Ql (Bld) Slight [facility] Hematocrit Auto (Bld) [Volum e fraction]Ordered By: Carla Hagan on 12-31-2022 Hematocrit (Bld) [Volume fraction] 30.2 % 34.0-46.4 [facility] Hemoglobin [Mass/volume] in BloodOrdered By: Carla Hagan on 12-31-2022 Hemoglobin (Bld) [Mass/Vol] 9.8 g/dL 11.8-15.4 [facility] Hypochromia LM Ql (Bld)Order ed By: Carla Hagan on 12-31-2022 Hypochromia Ql (Bld) Slight [facility] Laboratory - Chemistry and C hemistry - challengeOrdered By: Carla Hagan on 12-31-2022 Magnesium [Mass/Vol] 1.5 mg/dL 1.6-2.6 [facility] Leukocytes [#/volume] correc juma for nucleated erythrocytes in Blood by Automated counOrdered By: Carla Hagan on 12-31-2022 WBC corrected for nucl RBC Auto (Bld) [#/Vol] 13.4 10*3/uL 3.8-11.6 [facility] Lymphocytes Auto (Bld) [#/Vo l]Ordered By: Carla Hagan on 12-31-2022 Lymphocytes (Bld) [#/Vol] N/A [facility] Lymphocytes/100 WBC Auto (Bl d)Ordered By: Carla Hagan on 12-31-2022 Lymphocytes/100 WBC (Bld) N/A [facility] Lymphocytes/100 WBC Manual c nt (Bld)Ordered By: Carla Hagan on 12-31-2022 Lymphocytes/100 WBC (Bld) 8 % 18-42 [facility] MCH Auto (RBC) [Entitic mass ]Ordered By: Carla Hagan on 12-31-2022 MCH (RBC) [Entitic mass] 25.3 pg 24.7-34.3 [facility] MCHC Auto (RBC) [Mass/Vol]Or dered By: Carla Hagan on 12-31-2022 MCHC (RBC) [Mass/Vol] 32.3 g/dL 32.0-35.0 [facility] MCV Auto (RBC) [Entitic vol] Ordered By: Carla Hagan on 12-31-2022 MCV (RBC) [Entitic vol] 78.2 fL 80-100 [facility] Microcytes LM Ql (Bld)Ordere d By: Carla Hagan on 12-31-2022 Microcytes Ql (Bld) Moderate [facility] Monocytes Auto (Bld) [#/Vol] Ordered By: Carla Hagan on 12-31-2022 Monocytes (Bld) [#/Vol] N/A [facility] Monocytes/100 WBC Auto (Bld) Ordered By: Carla Hagan on 12-31-2022 Monocytes/100 WBC (Bld) N/A [facility] Monocytes/100 WBC Manual cnt (Bld)Ordered By: Carla Hagan on 12-31-2022 Monocytes/100 WBC (Bld) 5 % 2-11 [facility] Neutrophils Auto (Bld) [#/Vo l]Ordered By: Carla Hagan on 12-31-2022 Neutrophils (Bld) [#/Vol] N/A [facility] Neutrophils/100 WBC Auto (Bl d)Ordered By: Carla Hagan on 12-31-2022 Neutrophils/100 WBC (Bld) N/A [facility] No Panel InformationOrdered By: Carla Hagan on 12-31-2022 Estimated GFR () > 60 mL/Min [facility] Comment on above: GFR estimated refere nce range: According to KDOQI guidelines, <60 ml/min/1.73m2 is sufficient to diagnose a patient with chronic kidney disease. Pharmacy Creatinine Clearance (Chem 45.60 [facility] Nucleated erythrocytes [Pres ence] in Blood by Automated countOrdered By: Carla Hagan on 12-31-2022 Nucleated RBC Auto Ql (Bld) N/A [facility] Phosphate [Mass/volume] in S kaveh or PlasmaOrdered By: Carla Hagan on 12-31-2022 Phosphate [Mass/Vol] 3.5 mg/dL 2.5-4.6 [facility] Platelet adequacy [Presence] in Blood by Light microscopyOrdered By: Carla Hagan on 12-31-2022 Platelets LM Ql (Bld) Normal Normal [facility] Platelet mean volume Auto (B ld) [Entitic vol]Ordered By: Carla Hagan on 12-31-2022 Platelet mean volume (Bld) [Entitic vol] 6.6 fL 6.3-10.7 [facility] Platelet morphology finding [Identifier] in BloodOrdered By: Carla Hagan on 12-31-2022 Platelet morphology finding Nom (Bld) Normal Normal [facility] Platelets Auto (Bld) [#/Vol] Ordered By: Carla Hagan on 12-31-2022 Platelets (Bld) [#/Vol] 447 10*3/uL 150-450 [facility] Poikilocytosis [Presence] in Blood by Light microscopyOrdered By: Carla Hagan on 12-31-2022 Poikilocytosis LM Ql (Bld) Slight [facility] Polychromasia [Presence] in Blood by Light microscopyOrdered By: Carla Hagan on 12-31-2022 Polychromasia LM Ql (Bld) Slight [facility] Potassium [Moles/volume] in Serum or PlasmaOrdered By: Carla Hagan on 12-31-2022 Potassium [Moles/Vol] 4.1 mmol/L 3.5-5.1 [facility] RBC Auto (Bld) [#/Vol]Ordere d By: Carla Hagan on 12-31-2022 RBC (Bld) [#/Vol] 3.86 10*6/uL 3.60-5.00 [facility] RBC morphologyOrdered By: Ra carey Hagan on 12-31-2022 RBC morphology finding Nom (Bld) N/A [facility] Segmented neutrophils/100 WB C Manual cnt (Bld)Ordered By: Carla Hagan on 12-31-2022 Segmented neutrophils/100 WBC (Bld) 86 % 50-70 [facility] Serum or plasma anion gap de terminationOrdered By: Carla Hagan on 12-31-2022 Anion gap [Moles/Vol] 12.9 mmol/L 6.0-15.0 [facility] Sodium [Moles/volume] in Ser um or PlasmaOrdered By: Carla Hagan on 12-31-2022 Sodium [Moles/Vol] 134 mmol/L 136-146 [facility] Urea nitrogen [Mass/volume] in Serum or PlasmaOrdered By: Carla Hagan on 12-31-2022 Urea nitrogen [Mass/Vol] 18 mg/dL 9-23 [facility] WBC Auto (Bld) [#/Vol]Ordere d By: Carla Hagan on 12-31-2022 WBC (Bld) [#/Vol] 13.4 10*3/uL 3.8-11.6 [facility] Creatine kinase [Enzymatic a ctivity/volume] in Serum or PlasmaOrdered By: Carla Hagan on 12-28-2022 CK [Catalytic activity/Vol] 108 U/L 22-269 [facility] Automated epithelial cells c ount in urine sediment (number/area)Ordered By: Maddy Morrissey on 12-27-2022 Epithelial cells Auto (Urine sed) [#/Area] 3-4 [HPF] 0-2 [facility] Automated erythrocytes count in urine sediment (number/area)Ordered By: Maddy Morrissey on 12-27-2022 RBC Auto (Urine sed) [#/Area] 0-1 [HPF] 0-4 [facility] Automated leukocytes count i n urine sediment (number/area)Ordered By: Maddy Morrissey on 12-27-2022 WBC Auto (Urine sed) [#/Area] 5-9 [HPF] 0-4 [facility] Bilirubin Test strip Ql (U)O rdered By: Maddy Morrissey on 12-27-2022 Bilirubin Ql (U) Negative Negative [facility] Color Auto (U)Ordered By: Corwin Morrissey on 12-27-2022 Color (U) Yellow Yellow [facility] Folate [Mass/volume] in Seru m or PlasmaOrdered By: Eve Mann on 12-27-2022 Folate [Mass/Vol] ng/mL >5.9 [facility] Comment on above: Folate reference ran ge: >5.9 ng/mlThe WHO technical consultation on folate and vitamin [id number] has determined that folate concentrations lessthan 4 ng/ml are considered deficient. Ketones Auto test strip (U) [Mass/Vol]Ordered By: Maddy Morrissey on 12-27-2022 Ketones (U) [Mass/Vol] Negative Negative [facility] Laboratory - Chemistry and C hemistry - challengeOrdered By: Eve Mann on 12-27-2022 Cobalamin (Vitamin B12) [Mass/Vol] 994 pg/mL 180-914 [facility] Nitrite Test strip Ql (U)Ord ered By: Maddy Morrissey on 12-27-2022 Nitrite Ql (U) Positive Negative [facility] Protein Auto test strip (U) [Mass/Vol]Ordered By: Maddy Morrissey on 12-27-2022 Protein (U) [Mass/Vol] Trace mg/dL Negative F [facility] Specific gravity Auto test s trip (U) [Rel density]Ordered By: Maddy Morrissey on 12-27-2022 Specific gravity (U) [Rel density] > 1.050 1.001-1.03 0 [facility] Urine bacteria detection by automated methodOrdered By: Maddy Morrissey on 12-27-2022 Bacteria Auto Ql (U) 2+ None Seen [facility] Urine clarity by refractomet ry automatedOrdered By: Maddy Morrissey on 12-27-2022 Clarity Refractometry automated (U) Cloudy Clear [facility] Urine culture routineOrdered By: Maddy Morrissey on 12-27-2022 Bacteria identified Cx Nom (U) Escherichia coli [facility] Urine glucose measurement by automated test strip (mass/volume)Ordered By: Maddy Morrissey on 12-27-2022 Glucose Auto test strip (U) [Mass/Vol] Normal mg/dL Normal [facility] Urine hemoglobin detection b y automated test stripOrdered By: Maddy Morrissey on 12-27-2022 Hemoglobin Auto test strip Ql (U) Trace Negative [facility] Urine leukocyte esterase det ection by automated test stripOrdered By: Maddy Morrissey on 12-27-2022 Leukocyte esterase Auto test strip Ql (U) 3+ Negative [facility] Urobilinogen Auto test strip (U) [Mass/Vol]Ordered By: Maddy Morrissey on 12-27-2022 Urobilinogen (U) [Mass/Vol] Normal mg/dL Normal [facility] pH Auto test strip (U)Ordere d By: Maddy Morrissey on 12-27-2022 pH (U) 5.0 [pH] 5.0-9.0 [facility] Activated partial thrombopla stin time (aPTT) in platelet poor plasma by coagulation aOrdered By: Maddy Morrissey on 12-26-2022 aPTT Coag (PPP) [Time] 30.8 s 25.1-36.5 [facility] Basophils Auto (Bld) [#/Vol] Ordered By: Maddy Morrissey on 12-26-2022 Basophils (Bld) [#/Vol] 0.1 10*3/uL 0.0-0.2 [facility] Basophils/100 WBC Auto (Bld) Ordered By: Maddy Morrissey on 12-26-2022 Basophils/100 WBC (Bld) 0.5 % . [facility] Calcium [Mass/volume] in Ser um or PlasmaOrdered By: Maddy Morrissey on 12-26-2022 Calcium [Mass/Vol] 9.0 mg/dL 8.2-10.2 [facility] Carbon dioxide, total [Moles /volume] in Serum or PlasmaOrdered By: Maddy Morrissey on 12-26-2022 CO2 [Moles/Vol] 25.8 mmol/L 22.0-30.0 [facility] Chloride [Moles/volume] in S kaveh or PlasmaOrdered By: Maddy Morrissey on 12-26-2022 Chloride [Moles/Vol] 104 mmol/L 95-114 [facility] Creatinine and Glomerular fi ltration rate.predicted panel (S/P/Bld)Ordered By: Maddy Morrissey on 12-26-2022 Creatinine [Mass/Vol] 1.22 mg/dL 0.44-1.03 [facility] Eosinophils Auto (Bld) [#/Vo l]Ordered By: Maddy Morrissey on 12-26-2022 Eosinophils (Bld) [#/Vol] 0.1 10*3/uL 0.0-0.45 [facility] Eosinophils/100 WBC Auto (Bl d)Ordered By: Maddy Morrissey on 12-26-2022 Eosinophils/100 WBC (Bld) 1.1 % . [facility] Erythrocyte distribution wid th Auto (RBC) [Ratio]Ordered By: Maddy Morrissey on 12-26-2022 Erythrocyte distribution width (RBC) [Ratio] 15.9 % 11.9-15.3 [facility] Estimated glomerular filtrat ion rate (GFR) non- AmericanOrdered By: Maddy Morrissey on 12-26-2022 GFR/1.73 sq M.predicted among non-blacks MDRD (S/P/Bld) [Vol rate/Area] 43 mL/Min [facility] Glucose [Mass/volume] in Ser um or PlasmaOrdered By: Maddy Morrissey on 12-26-2022 Glucose [Mass/Vol] 128 mg/dL 70-100 [facility] Comment on above: ADA recommended refe rence rangeRandom Glucose Reference Range is dependent on time and content of last meal. Glucose of more than 200 mg/dL in a nonstressed, ambulatory subject supports the diagnosis of Diabetes Mellitus. Hematocrit Auto (Bld) [Volum e fraction]Ordered By: Maddy Morrissey on 12-26-2022 Hematocrit (Bld) [Volume fraction] 29.7 % 34.0-46.4 [facility] Hemoglobin [Mass/volume] in BloodOrdered By: Maddy Morrissey on 12-26-2022 Hemoglobin (Bld) [Mass/Vol] 9.3 g/dL 11.8-15.4 [facility] Laboratory - Chemistry and C hemistry - challengeOrdered By: aMddy Morrissey on 12-26-2022 Natriuretic peptide B (Bld) [Mass/Vol] 49.0 pg/mL 5-100 [facility] Laboratory - CoagulationOrde red By: Maddy Morrissey on 12-26-2022 PT Coag (PPP) [Time] 14.5 s 9.0-12.9 [facility] Leukocytes [#/volume] correc juma for nucleated erythrocytes in Blood by Automated counOrdered By: Maddy Morrissey on 12-26-2022 WBC corrected for nucl RBC Auto (Bld) [#/Vol] 12.0 10*3/uL 3.8-11.6 [facility] Lymphocytes Auto (Bld) [#/Vo l]Ordered By: Maddy Morrissey on 12-26-2022 Lymphocytes (Bld) [#/Vol] 3.0 10*3/uL 1.00-4.8 [facility] Lymphocytes/100 WBC Auto (Bl d)Ordered By: Maddy Morrissey on 12-26-2022 Lymphocytes/100 WBC (Bld) 24.8 % . [facility] MCH Auto (RBC) [Entitic mass ]Ordered By: Maddy Morrissey on 12-26-2022 MCH (RBC) [Entitic mass] 24.8 pg 24.7-34.3 [facility] MCHC Auto (RBC) [Mass/Vol]Or dered By: Maddy Morrissey on 12-26-2022 MCHC (RBC) [Mass/Vol] 31.2 g/dL 32.0-35.0 [facility] MCV Auto (RBC) [Entitic vol] Ordered By: Maddy Morrissey on 12-26-2022 MCV (RBC) [Entitic vol] 79.4 fL 80-100 [facility] Monocyte distribution width [Entitic volume] in Blood by AutomatedOrdered By: Maddy Morrissey on 12-26-2022 Monocyte distribution width Auto (Bld) [Entitic vol] 20.22 % 0.00-20.00 [facility] Comment on above: For adults in ED, MD W > 20.0 may be associated with a higher risk of sepsis during the first 12 hrs of hospital admission Monocytes Auto (Bld) [#/Vol] Ordered By: Maddy Morrissey on 12-26-2022 Monocytes (Bld) [#/Vol] 1.2 10*3/uL 0.0-0.8 [facility] Monocytes/100 WBC Auto (Bld) Ordered By: Maddy Morrissey on 12-26-2022 Monocytes/100 WBC (Bld) 10.1 % . [facility] Neutrophils Auto (Bld) [#/Vo l]Ordered By: Maddy Morrissey on 12-26-2022 Neutrophils (Bld) [#/Vol] 7.6 10*3/uL 1.8-7.7 [facility] Neutrophils/100 WBC Auto (Bl d)Ordered By: Maddy Morrissey on 12-26-2022 Neutrophils/100 WBC (Bld) 63.5 % . [facility] No Panel InformationOrdered By: Maddy Morrissey on 12-26-2022 Estimated GFR () 52 mL/Min [facility] Comment on above: GFR estimated refere nce range: According to KDOQI guidelines, <60 ml/min/1.73m2 is sufficient to diagnose a patient with chronic kidney disease. Pharmacy Creatinine Clearance (Chem 37.20 [facility] Nucleated erythrocytes [Pres ence] in Blood by Automated countOrdered By: Maddy Morrissey on 12-26-2022 Nucleated RBC Auto Ql (Bld) 0.1 /100{WBC} 0-0.5 [facility] Platelet mean volume Auto (B ld) [Entitic vol]Ordered By: Maddy Morrissey on 12-26-2022 Platelet mean volume (Bld) [Entitic vol] 6.5 fL 6.3-10.7 [facility] Platelet poor plasma interna tional normalized ratio (INR) by coagulation assay (relatOrdered By: Maddy Morrissey on 12-26-2022 INR Coag (PPP) [Relative time] 1.3 {INR} [facility] Comment on above: INR Therapeutic Rang [...] 12-26-2022 Platelets (Bld) [#/Vol] 450 10*3/uL 150-450 [facility] Potassium [Moles/volume] in Serum or PlasmaOrdered By: Maddy Morrissey on 12-26-2022 Potassium [Moles/Vol] 3.9 mmol/L 3.5-5.1 [facility] RBC Auto (Bld) [#/Vol]Ordere d By: Maddy Morrissey on 12-26-2022 RBC (Bld) [#/Vol] 3.74 10*6/uL 3.60-5.00 [facility] Serum or plasma anion gap de terminationOrdered By: Maddy Morrissey on 12-26-2022 Anion gap [Moles/Vol] 10.1 mmol/L 6.0-15.0 [facility] Sodium [Moles/volume] in Ser um or PlasmaOrdered By: Maddy Morrissey on 12-26-2022 Sodium [Moles/Vol] 136 mmol/L 136-146 [facility] Troponin I.cardiac [Mass/vol ume] in Serum or Plasma by High sensitivity methodOrdered By: Maddy Morrissey on 12-26-2022 Troponin I.cardiac High sensitivity method [Mass/Vol] 6 pg/mL 0-15 [facility] Urea nitrogen [Mass/volume] in Serum or PlasmaOrdered By: Maddy Morrissey on 12-26-2022 Urea nitrogen [Mass/Vol] 21 mg/dL 9-23 [facility] WBC Auto (Bld) [#/Vol]Ordere d By: Maddy Morrissey on 12-26-2022 WBC (Bld) [#/Vol] 12.0 10*3/uL 3.8-11.6 [facility] Basophils Auto (Bld) [#/Vol] Ordered By: Hilario Yeung on 05-31-2022 Basophils (Bld) [#/Vol] 0.0 10*3/uL 0.0-0.2 [facility] Basophils/100 WBC Auto (Bld) Ordered By: Hilario Yeung on 05-31-2022 Basophils/100 WBC (Bld) 0.7 % . [facility] Blood hemoglobin measurement (mass/volume)Ordered By: Hilario Yeung on 05-31-2022 Hemoglobin (Bld) [Mass/Vol] 11.6 g/dL 11.8-15.4 [facility] Blood leukocytes automated c ount (number/volume)Ordered By: Hilario Yeung on 05-31-2022 WBC (Bld) [#/Vol] 5.9 10*3/uL 4.5-11.0 [facility] Creatinine and Glomerular fi ltration rate.predicted panel (S/P/Bld)Ordered By: Hilario Yeung on 05-31-2022 Creatinine [Mass/Vol] 1.22 mg/dL 0.44-1.03 [facility] Eosinophils Auto (Bld) [#/Vo l]Ordered By: Hilario Yeung on 05-31-2022 Eosinophils (Bld) [#/Vol] 0.3 10*3/uL 0.0-0.45 [facility] Eosinophils/100 WBC Auto (Bl d)Ordered By: Hilario Yeung on 05-31-2022 Eosinophils/100 WBC (Bld) 4.4 % . [facility] Erythrocyte distribution wid th Auto (RBC) [Ratio]Ordered By: Hilario Yeung on 05-31-2022 Erythrocyte distribution width (RBC) [Ratio] 16.9 % 11.9-15.3 [facility] Estimated glomerular filtrat ion rate (GFR) non- AmericanOrdered By: Hilario Yeung on 05-31-2022 GFR/1.73 sq M.predicted among non-blacks MDRD (S/P/Bld) [Vol rate/Area] 43 mL/Min [facility] Hematocrit Auto (Bld) [Volum e fraction]Ordered By: Hilario Yeung on 05-31-2022 Hematocrit (Bld) [Volume fraction] 36.6 % 34.0-46.4 [facility] Laboratory - Hematology and Cell countsOrdered By: Hilario Yeung on 05-31-2022 Nucleated RBC/100 WBC (Bld) [Ratio] 0.1 % 0-0.5 [facility] Lymphocytes Auto (Bld) [#/Vo l]Ordered By: Hilario Yeung on 05-31-2022 Lymphocytes (Bld) [#/Vol] 2.4 10*3/uL 1.00-4.8 [facility] Lymphocytes/100 WBC Auto (Bl d)Ordered By: Hilario Yeung on 05-31-2022 Lymphocytes/100 WBC (Bld) 41.3 % . [facility] MCH Auto (RBC) [Entitic mass ]Ordered By: Hilario Yeung on 05-31-2022 MCH (RBC) [Entitic mass] 25.8 pg 24.7-34.3 [facility] MCHC Auto (RBC) [Mass/Vol]Or dered By: Hilario Yeung on 05-31-2022 MCHC (RBC) [Mass/Vol] 31.7 g/dL 32.0-35.0 [facility] MCV Auto (RBC) [Entitic vol] Ordered By: Hilario Yeung on 05-31-2022 MCV (RBC) [Entitic vol] 81.4 fL 80-100 [facility] Monocytes Auto (Bld) [#/Vol] Ordered By: Hilario Yeung on 05-31-2022 Monocytes (Bld) [#/Vol] 0.6 10*3/uL 0.0-0.8 [facility] Monocytes/100 WBC Auto (Bld) Ordered By: Hilario Yeung on 05-31-2022 Monocytes/100 WBC (Bld) 10.6 % . [facility] Neutrophils Auto (Bld) [#/Vo l]Ordered By: Hilario Yeung on 05-31-2022 Neutrophils (Bld) [#/Vol] 2.5 10*3/uL 1.8-7.7 [facility] Neutrophils/100 WBC Auto (Bl d)Ordered By: Hilario Yeung on 05-31-2022 Neutrophils/100 WBC (Bld) 43.0 % . [facility] No Panel InformationOrdered By: Hilario Yeung on 05-31-2022 Estimated GFR () 52 mL/Min [facility] Comment on above: GFR estimated refere nce range: According to KDOQI guidelines, <60 ml/min/1.73m2 is sufficient to diagnose a patient with chronic kidney disease. Pharmacy Creatinine Clearance (Chem 39.11 [facility] Platelet mean volume Auto (B ld) [Entitic vol]Ordered By: Hilario Yeung on 05-31-2022 Platelet mean volume (Bld) [Entitic vol] 7.5 fL 6.3-10.7 [facility] Platelets Auto (Bld) [#/Vol] Ordered By: Hilario Yeung on 05-31-2022 Platelets (Bld) [#/Vol] 209 10*3/uL 150-450 [facility] RBC Auto (Bld) [#/Vol]Ordere d By: Hilario Yeung on 05-31-2022 RBC (Bld) [#/Vol] 4.50 10*6/uL 3.60-5.00 [facility] Serum or plasma calcium roly urement (mass/volume)Ordered By: Hilario Yeung on 08-04-2022 Calcium [Mass/Vol] 9.1 mg/dL 8.2-10.2 [facility] Serum or plasma chloride deirdre surement (moles/volume)Ordered By: Hilario Yeung on 05-31-2022 Chloride [Moles/Vol] 100 mmol/L 95-114 [facility] Serum or plasma glucose roly urement (mass/volume)Ordered By: Hilario Yeung on 05-31-2022 Glucose [Mass/Vol] 99 mg/dL 70-100 [facility] Comment on above: ADA recommended refe rence range Random Glucose Reference Range is dependent on time and content of last meal. Glucose of more than 200 mg/dL in a nonstressed, ambulatory subject supports the diagnosis of Diabetes Mellitus. Serum or plasma potassium me asurement (moles/volume)Ordered By: Hilario Yeung on 05-31-2022 Potassium [Moles/Vol] 4.2 mmol/L 3.5-5.1 [facility] Serum or plasma sodium measu rement (moles/volume)Ordered By: Hilario Yeung on 05-31-2022 Sodium [Moles/Vol] 138 mmol/L 136-146 [facility] Serum or plasma total carbon dioxide measurement (moles/volume)Ordered By: Hilario Yeung on 05-31-2022 CO2 [Moles/Vol] 29.7 mmol/L 22.0-30.0 [facility] Serum or plasma urea nitroge n measurement (mass/volume)Ordered By: Hilario Yeung on 05-31-2022 Urea nitrogen [Mass/Vol] 13 mg/dL 9-23 [facility] SCREENING MAMMOGRAM W/[place], BILATERAL*on 04-27-2022 SCREENING [...] VERY IMPORTANT TO YOUR HEALTH. THE CURRENT [place] [employer] AND [employer] GUIDELINES RECOMMENDS ANNUAL MAMMOGRAPHY BEGINNING AT AGE 40 THIS FACILITY USES A REMINDER SYSTEM TO ENSURE ALL PATIENTS RECEIVE REMINDER NOTIFICATIONS AT THE APPROPRIATE TIME BASED ON THE RECOMMENDATIONS OF THIS EXAM. Board Certified Radiologist. Accredited by the ACR and FDA. Report reported and signed by Edgar Hooper on 05/01/2022 0957 Normal [facility] CT Low Dose Lung Screeningon 04-26-2022 CT [...] by Devonte Gomez on 04/27/2022 1239 Normal [facility] XR Hip Complete Left*on 02-25 XR Hip [...] by Wicho Bowman on 03/14/2022 1550 Normal [facility] XR Spine Lumbar 4+ Views*on 05-18-2022 XR [...] by Wicho Bowman on 03/14/2022 1546 Normal [facility] Specialist [employer] [facility] 12-20-2020 [facility] Patient Outreach ([facility]) -- GERA PERDUE ([id number]) 1945 F Date Time Provider Department 12/20/20 DERICK LOPEZ During your visit today, we recorded the following information about you: Allergies As of Date: 12/20/2020 Noted Allergy Reaction ASPRIN (ASPIRIN) 03/02/2019 1 - Mental Status Change Date Reviewed: 05/04/2020 Reviewed by: Prasad Phillips - Fully Assessed Order(s):SARS-COVID VACCINE 1ST DOSE APPT [[id number]] Order #: [id number] FUTURE Prescriptions as of 12/20/2020 Sig: HYDROCODONE [...] [E66.9] 02/25/2015 Letter Text Encounter Status:Closed by [employer] on 12/23/20 [facility] PROGRESSon 05-03-2020 PROGRESS HNO ID: [id number] Author: Prasad Phillips Service: ? Author Type: Physician Type: Progress Notes Filed: 05/04/2020 8:19 PM Note Text: Gera Perdue : 1945 Mcfp: [facility] PCP: guanako Date last seen: 04/2020 [...] of right foot Prasad Phillips DPM Normal [facility] CBC Auto Differentialon 10-0 Basophils (Bld) [#/Vol] 0.03 10*3/uL [place] Basophils/100 WBC (Bld) 0 % 0 - 2 % [place] Differential Type NOT REPORTED [place] Eosinophils (Bld) [#/Vol] 0.14 10*3/uL [place] Eosinophils/100 WBC (Bld) 2 % 1 - 4 % [place] Erythrocyte distribution width (RBC) [Ratio] 15.0 % High 11.8 - 14.4 % [place] Hematocrit (Bld) [Volume fraction] 32.7 % Low 36.3 - 47.1 % [place] Hemoglobin (Bld) [Mass/Vol] 9.9 g/dL Low 11.9 - 15.1 g/dL [place] Immature granulocytes (Bld) [#/Vol] 0.03 10*3/uL [place] Immature granulocytes (Bld) [#/Vol] 0 % 0 [place] Interpretation and review of laboratory results Abnormal [place] Lymphocytes (Bld) [#/Vol] 1.67 10*3/uL [place] Lymphocytes/100 WBC (Bld) 22 % Low 24 - 43 % [place] MCH (RBC) [Entitic mass] 27.7 pg 25.2 - 33.5 pg [place] MCHC (RBC) [Mass/Vol] 30.3 g/dL 28.4 - 34.8 g/dL [place] MCV (RBC) [Entitic vol] 91.3 fL 82.6 - 102.9 fL [place] Monocytes (Bld) [#/Vol] 1.00 10*3/uL [place] Monocytes/100 WBC (Bld) 13 % High 3 - 12 % [place] Platelet mean volume (Bld) [Entitic vol] 9.1 fL 8.1 - 13.5 fL [place] Platelets (Bld) [#/Vol] 184 10*3/uL [place] Platelets (Bld) [#/Vol] NOT REPORTED [place] RBC (Bld) [#/Vol] 3.58 10*6/uL Low 3.95 - 5.11 m/uL [place] RBC morphology finding Nom (Bld) ANISOCYTOSIS PRESENT [place] Segmented neutrophils/100 WBC (Bld) 63 % 36 - 65 % [place] Segs Absolute 4.63 [place] WBC (Bld) [#/Vol] 7.5 10*3/uL [place] WBC (Bld) [#/Vol] 0.0 10*3/uL 0.0 per 100 WBC [place] WBC Morphology NOT REPORTED [place] CBC with Diffon 08-04-2019 Abs. Basophil 0.03 k/uL Normal 0.00-0.20 [facility] Comment on above: Performed By: #### C DP #### [place] [address] [employer]: Juan Perera MD Abs.Imm.Granulocyte 0.03 k/uL Normal 0.00-0.30 [facility] Comment on above: Performed By: #### C DP #### [place] [address] [employer]: Juan Perera MD Abs.Neutrophil (Seg) 4.63 k/uL Normal 1.50-8.10 [facility] Comment on above: Performed By: #### C DP #### [facility] [employer] [address] [place] [address] [employer]: Juan Perera MD Basophils/100 WBC (Bld) 0 % Normal 0-2 [facility] Comment on above: Performed By: #### C DP #### [address] [address] [employer]: Juan Perera MD Eosinophils (Bld) [#/Vol] 0.14 10*3/uL Normal 0.00-0.44 [facility] Comment on above: Performed By: #### C DP #### [address] [address] [employer]: Juan Perera MD Eosinophils/100 WBC (Bld) 2 % Normal 1-4 [facility] Comment on above: Performed By: #### C DP #### [place] [address] [employer]: Juan Perera MD Erythrocyte distribution width (RBC) [Ratio] 15.0 % High 11.8-14.4 [facility] Comment on above: Performed By: #### C DP #### [place] [address] [employer]: Juan Perera MD Hematocrit (Bld) [Volume fraction] 32.7 % Low 36.3-47.1 [facility] Comment on above: Performed By: #### C DP #### [address] [address] [employer]: Juan Perera MD Hemoglobin (Bld) [Mass/Vol] 9.9 g/dL Low 11.9-15.1 [facility] Comment on above: Performed By: #### C DP #### [address] [address] [employer]: Juan Perera MD Immature granulocytes (Bld) [#/Vol] 0 % Normal 0 [facility] Comment on above: Performed By: #### C DP #### [address] [address] [employer]: Juan Perera MD Lymphocytes (Bld) [#/Vol] 1.67 10*3/uL Normal 1.10-3.70 [facility] Comment on above: Performed By: #### C DP #### [address] [address] [employer]: Juan Perera MD Lymphocytes/100 WBC (Bld) 22 % Low 24-43 [facility] Comment on above: Performed By: #### C DP #### [address] [address] [employer]: Juan Perera MD MCH (RBC) [Entitic mass] 27.7 pg Normal 25.2-33.5 [facility] Comment on above: Performed By: #### C DP #### [place] [address] [employer]: Juan Perera MD MCHC (RBC) [Mass/Vol] 30.3 g/dL Normal 28.4-34.8 [facility] Comment on above: Performed By: #### C DP #### [address] [address] [employer]: Juan Perera MD MCV (RBC) [Entitic vol] 91.3 fL Normal 82.6-102.9 [facility] Comment on above: Performed By: #### C DP #### [address] [address] [employer]: Juan Perera MD Monocytes (Bld) [#/Vol] 1.00 10*3/uL Normal 0.10-1.20 [facility] Comment on above: Performed By: #### C DP #### [address] [address] [employer]: Juan Perera MD Monocytes/100 WBC (Bld) 13 % High 3-12 [facility] Comment on above: Performed By: #### C DP #### [address] [address] [employer]: Juan Perera MD Neutrophil (Seg) 63 % Normal 36-65 [facility] Comment on above: Performed By: #### C DP #### [address] [address] [employer]: Juan Perera MD NRBC Automated 0.0 per 100 WBC Normal 0.0 [facility] Comment on above: Performed By: #### C DP #### [address] [address] [employer]: Juan Perera MD Platelet mean volume (Bld) [Entitic vol] 9.1 fL Normal 8.1-13.5 [facility] Comment on above: Performed By: #### C DP #### [address] [address] [employer]: Juan Perera MD Platelets (Bld) [#/Vol] 184 10*3/uL Normal 138-453 [facility] Comment on above: Performed By: #### C DP #### [address] [address] [employer]: Juan Perera MD RBC (Bld) [#/Vol] 3.58 10*6/uL Low 3.95-5.11 [facility] Comment on above: Performed By: #### C DP #### [address] [address] [employer]: Juan Perera MD RBC morphology finding Nom (Bld) ANISOCYTOSIS PRESENT Normal [facility] Comment on above: Performed By: #### C DP #### [address] [address] [employer]: Juan Perera MD WBC (Bld) [#/Vol] 7.5 10*3/uL Normal 3.5-11.3 [facility] Comment on above: Performed By: #### C DP #### [facility] [employer] [facility] [place], [place] [phone] [employer]: Juan Perera MD Auto Diff Performed NOT REPORTED Normal [facility] Comment on above: Performed By: #### C DP #### [facility] [employer] [address] [place] [phone] [employer]: Juan Perera MD Platelets (Bld) [#/Vol] NOT REPORTED Normal [facility] Comment on above: Performed By: #### C DP #### [address] [phone] [employer]: Juan Perera MD WBC Morphology NOT REPORTED Normal [facility] Comment on above: Performed By: #### C DP #### [address] [phone] [employer]: Juan Perera MD CBC Auto Differentialon 10 Basophils (Bld) [#/Vol] 0.04 10*3/uL [place] Basophils/100 WBC (Bld) 1 % 0 - 2 % [place] Differential Type NOT REPORTED [place] Eosinophils (Bld) [#/Vol] 0.19 10*3/uL [place] Eosinophils/100 WBC (Bld) 2 % 1 - 4 % [place] Erythrocyte distribution width (RBC) [Ratio] 15.5 % High 11.8 - 14.4 % [place] Hematocrit (Bld) [Volume fraction] 37.6 % 36.3 - 47.1 % [place] Hemoglobin (Bld) [Mass/Vol] 11.4 g/dL Low 11.9 - 15.1 g/dL [place] Immature granulocytes (Bld) [#/Vol] 10*3/uL [place] Immature granulocytes (Bld) [#/Vol] 0 % 0 [place] Interpretation and review of laboratory results Abnormal [place] Lymphocytes (Bld) [#/Vol] 1.70 10*3/uL [place] Lymphocytes/100 WBC (Bld) 22 % Low 24 - 43 % [place] MCH (RBC) [Entitic mass] 27.8 pg 25.2 - 33.5 pg [place] MCHC (RBC) [Mass/Vol] 30.3 g/dL 28.4 - 34.8 g/dL [place] MCV (RBC) [Entitic vol] 91.7 fL 82.6 - 102.9 fL [place] Monocytes (Bld) [#/Vol] 0.92 10*3/uL [place] Monocytes/100 WBC (Bld) 12 % 3 - 12 % [place] Platelet mean volume (Bld) [Entitic vol] 9.4 fL 8.1 - 13.5 fL [place] Platelets (Bld) [#/Vol] NOT REPORTED [place] Platelets (Bld) [#/Vol] 199 10*3/uL [place] RBC (Bld) [#/Vol] 4.10 10*6/uL 3.95 - 5.11 m/uL [place] RBC morphology finding Nom (Bld) ANISOCYTOSIS PRESENT [place] Segmented neutrophils/100 WBC (Bld) 63 % 36 - 65 % [place] Segs Absolute 4.97 [place] WBC (Bld) [#/Vol] 0.0 10*3/uL 0.0 per 100 WBC [place] WBC (Bld) [#/Vol] 7.8 10*3/uL [place] WBC Morphology NOT REPORTED [place] CBC with Diffon 08-03-2019 Abs. Basophil 0.04 k/uL Normal 0.00-0.20 [facility] Comment on above: Performed By: #### C DP, CP #### [facility] [address] [address] [employer]: Juan Perera MD Abs.Imm.Granulocyte <0.03 Normal 0.00-0.30 [facility] Comment on above: Performed By: #### C DP, CP #### [address] [address] [employer]: Juan Perera MD Abs.Neutrophil (Seg) 4.97 k/uL Normal 1.50-8.10 [facility] Comment on above: Performed By: #### C DP, CP #### [place] [address] [employer]: Juan Perera MD Basophils/100 WBC (Bld) 1 % Normal 0-2 [facility] Comment on above: Performed By: #### C DP, CP #### [place] [address] [employer]: Juan Perera MD Eosinophils (Bld) [#/Vol] 0.19 10*3/uL Normal 0.00-0.44 [facility] Comment on above: Performed By: #### C DP, CP #### [place] [address] [employer]: Juan Perera MD Eosinophils/100 WBC (Bld) 2 % Normal 1-4 [facility] Comment on above: Performed By: #### C DP, CP #### [place] [address] [employer]: Juan Perera MD Erythrocyte distribution width (RBC) [Ratio] 15.5 % High 11.8-14.4 [facility] Comment on above: Performed By: #### C DP, CP #### [place] [address] [employer]: Juan Perera MD Hematocrit (Bld) [Volume fraction] 37.6 % Normal 36.3-47.1 [facility] Comment on above: Performed By: #### C DP, CP #### [address] [address] [employer]: Juan Perera MD Hemoglobin (Bld) [Mass/Vol] 11.4 g/dL Low 11.9-15.1 [facility] Comment on above: Performed By: #### C DP, CP #### [address] [address] [employer]: Juan Perera MD Immature granulocytes (Bld) [#/Vol] 0 % Normal 0 [facility] Comment on above: Performed By: #### C DP, CP #### [place] [address] [employer]: Juan Perera MD Lymphocytes (Bld) [#/Vol] 1.70 10*3/uL Normal 1.10-3.70 [facility] Comment on above: Performed By: #### C DP, CP #### [place] [address] [employer]: Juan Perrea MD Lymphocytes/100 WBC (Bld) 22 % Low 24-43 [facility] Comment on above: Performed By: #### C DP, CP #### [place] [address] [employer]: Juan Perera MD MCH (RBC) [Entitic mass] 27.8 pg Normal 25.2-33.5 [facility] Comment on above: Performed By: #### C DP, CP #### [address] [address] [employer]: Juan Perera MD MCHC (RBC) [Mass/Vol] 30.3 g/dL Normal 28.4-34.8 [facility] Comment on above: Performed By: #### C DP, CP #### [address] [address] [employer]: Juan Perera MD MCV (RBC) [Entitic vol] 91.7 fL Normal 82.6-102.9 [facility] Comment on above: Performed By: #### C DP, CP #### [address] [address] [employer]: Juan Perera MD Monocytes (Bld) [#/Vol] 0.92 10*3/uL Normal 0.10-1.20 [facility] Comment on above: Performed By: #### C DP, CP #### [address] [address] [employer]: Juan Perera MD Monocytes/100 WBC (Bld) 12 % Normal 3-12 [facility] Comment on above: Performed By: #### C DP, CP #### [address] [address] [employer]: Juan Perera MD Neutrophil (Seg) 63 % Normal 36-65 [facility] Comment on above: Performed By: #### C DP, CP #### [address] [address] [employer]: Juan Perera MD NRBC Automated 0.0 per 100 WBC Normal 0.0 [facility] Comment on above: Performed By: #### C DP, CP #### [address] [address] [employer]: Juan Perera MD Platelet mean volume (Bld) [Entitic vol] 9.4 fL Normal 8.1-13.5 [facility] Comment on above: Performed By: #### C DP, CP #### [address] [address] [employer]: Juan Perera MD Platelets (Bld) [#/Vol] 199 10*3/uL Normal 138-453 [facility] Comment on above: Performed By: #### C DP, CP #### [address] [address] [employer]: Juan Perera MD RBC (Bld) [#/Vol] 4.10 10*6/uL Normal 3.95-5.11 [facility] Comment on above: Performed By: #### C DP, CP #### [address] [address] [employer]: Juan Perera MD RBC morphology finding Nom (Bld) ANISOCYTOSIS PRESENT Normal [facility] Comment on above: Performed By: #### C DP, CP #### [address] [address] [employer]: Juan Perera MD WBC (Bld) [#/Vol] 7.8 10*3/uL Normal 3.5-11.3 [facility] Comment on above: Performed By: #### C DP, CP #### [address] [address] [employer]: Juan Perera MD Auto Diff Performed NOT REPORTED Normal [facility] Comment on above: Performed By: #### C DP, CP #### [address] [address] [employer]: Juan Perera MD Platelets (Bld) [#/Vol] NOT REPORTED Normal [facility] Comment on above: Performed By: #### C DP, CP #### [address] [address] [employer]: Juan Perera MD WBC Morphology NOT REPORTED Normal [facility] Comment on above: Performed By: #### C DP, CP #### [facility] [address] [place] [address] [employer]: Juan Perera MD Comp Metabolic Profon 2018 (cont.) Normal [facility] Comment on above: Result Comment: Aver age GFR for 70 or more years old: 75 mL/min/1.73sq m Chronic Kidney Disease: <60 mL/min/1.73sq m Kidney failure: <15 mL/min/1.73sq m eGFR calculated using average adult body mass. Additional eGFR calculator available at: http://www.[employer]ripHobo/multiple_crcl_2012.htm Performed By: #### C DP, CP #### [facility] [employer] [address] [place] [address] [employer]: Juan Perera MD Albumin [Mass/Vol] 2.7 g/dL Low 3.5-5.2 [facility] Comment on above: Performed By: #### C DP, CP #### [facility] [employer] [address] [place] [address] [employer]: Juan Perera MD Albumin/Globulin [Mass ratio] 0.8 {ratio} Low 1.0-2.5 [facility] Comment on above: Performed By: #### C DP, CP #### [facility] [employer] [address] [place] [address] [employer]: Juan Perera MD Alkaline Phos 65 U/L Normal 35-104 [facility] Comment on above: Performed By: #### C DP, CP #### [facility] [employer] [address] [place] [address] [employer]: Juan Perera MD ALT [Catalytic activity/Vol] 8 U/L Normal 5-33 [facility] Comment on above: Performed By: #### C DP, CP #### [facility] [employer] [address] [place] [address] [employer]: Juan Perera MD Anion gap [Moles/Vol] 12 mmol/L Normal 9-17 [facility] Comment on above: Performed By: #### C DP, CP #### [facility] [employer] [address] [place] [address] [employer]: Juan Perera MD AST [Catalytic activity/Vol] 13 U/L Normal <32 [facility] Comment on above: Performed By: #### C DP, CP #### [address] [address] [employer]: Juan Perera MD Bilirubin Ql (U) 0.41 mg/dL Normal 0.3-1.2 [facility] Comment on above: Performed By: #### C DP, CP #### [address] [address] [employer]: Juan Perera MD Calcium [Mass/Vol] 8.3 mg/dL Low 8.6-10.4 [facility] Comment on above: Performed By: #### C DP, CP #### [address] [address] [employer]: Juan Perera MD Chloride [Moles/Vol] 108 mmol/L High 98-107 [facility] Comment on above: Performed By: #### C DP, CP #### [address] [address] [employer]: Juan Perera MD CO2 [Moles/Vol] 22 mmol/L Normal 20-31 [facility] Comment on above: Performed By: #### C DP, CP #### [address] [address] [employer]: Juan Perera MD Creatinine [Mass/Vol] 0.72 mg/dL Normal 0.50-0.90 [facility] Comment on above: Performed By: #### C DP, CP #### [address] [address] [employer]: Juan Perera MD GFR, Amer >60 Normal >60 [facility] Comment on above: Performed By: #### C DP, CP #### [address] [address] [employer]: Juan Perera MD GFR,non Amer >60 Normal >60 [facility] Comment on above: Performed By: #### C DP, CP #### [address] [address] [employer]: Juan Perera MD Glucose [Mass/Vol] 78 mg/dL Normal 70-99 [facility] Comment on above: Performed By: #### C DP, CP #### [address] [address] [employer]: Juan Perera MD Potassium [Moles/Vol] 3.9 mmol/L Normal 3.7-5.3 [facility] Comment on above: Performed By: #### C DP, CP #### [address] [address] [employer]: Juan Perera MD Protein [Mass/Vol] 6.2 g/dL Low 6.4-8.3 [facility] Comment on above: Performed By: #### C DP, CP #### [address] [address] [employer]: Juan Perera MD Sodium [Moles/Vol] 142 mmol/L Normal 135-144 [facility] Comment on above: Performed By: #### C DP, CP #### [address] [address] [employer]: Juan Perera MD Urea nitrogen [Mass/Vol] 11 mg/dL Normal 8-23 [facility] Comment on above: Performed By: #### C DP, CP #### [facility] [address] [place], [place] [phone] [employer]: Juan Perera MD BUN/CRE Ratio NOT REPORTED Normal 07-17 [facility] Comment on above: Performed By: #### C DP, CP #### [facility] [address] [place], [place] [phone] [employer]: Juna Perera MD Staging: NOT REPORTED Normal [facility] Comment on above: Performed By: #### C DP, CP #### [facility] [address] [place], [place] [phone] [employer]: Juan Perera MD Comprehensive Metabolic Pane [facility] 08-03-2019 Albumin [Mass/Vol] 2.7 g/dL Low 3.5 - 5.2 g/dL [place] Albumin/Globulin [Mass ratio] 0.8 {ratio} Low [place] ALP [Catalytic activity/Vol] 65 U/L 35 - 104 U/L [place] ALT [Catalytic activity/Vol] 8 U/L 5 - 33 U/L [place] Anion gap [Moles/Vol] 12 mmol/L 9 - 17 mmol/L [place] AST [Catalytic activity/Vol] 13 U/L <32 [place] Bilirubin Ql (U) 0.41 mg/dL 0.3 - 1.2 mg/dL [place] Bun/Cre Ratio NOT REPORTED [place] Calcium [Mass/Vol] 8.3 mg/dL Low 8.6 - 10. 4 mg/dL [place] Chloride [Moles/Vol] 108 mmol/L High 98 - 10 7 mmol/L [place] CO2 [Moles/Vol] 22 mmol/L 20 - 31 mmol/L [place] Creatinine [Mass/Vol] 0.72 mg/dL 0.5 - 0.9 mg/dL [place] GFR >60 >60 mL/min [place] GFR Non- >60 >60 mL/min [place] GFR/1.73 sq M predicted among non-blacks MDRD (S/P/Bld) [Vol rate/Area] NOT REPORTED [place] GFR/1.73 sq M predicted among non-blacks MDRD (S/P/Bld) [Vol rate/Area] [place] Comment on above: Average GFR for 70 o r more years old: 75 mL/min/1.73sq m Chronic Kidney Disease: <60 mL/min/1.73sq m Kidney failure: <15 mL/min/1.73sq m eGFR calculated using average adult body mass. Additional eGFR calculator available at: http://www.[employer]ripHobo/multiple_crcl_2011.htm Glucose [Mass/Vol] 78 mg/dL 70 - 99 mg/dL [place] Interpretation and review of laboratory results Abnormal [place] Potassium [Moles/Vol] 3.9 mmol/L 3.7 - 5.3 mmol/L [place] Protein [Mass/Vol] 6.2 g/dL Low 6.4 - 8.3 g/dL [place] Sodium [Moles/Vol] 142 mmol/L 135 - 144 mmol/L [place] Urea nitrogen [Mass/Vol] 11 mg/dL 8 - 23 mg/dL [place] XR ABDOMEN (KUB) (SINGLE AP VIEW)on [...] Martin Hope MD 08/03/19 Final result Normal [facility] Nonspecific bowel ga s pattern. [facility] [place] Robert, M[facility]pn Incoming R adiant Results From Vdolgcribe/Pacs - 08/03/2019 9:28 AM EDT EXAMINATION: ONE SUPINE XRAY VIEW(S) OF THE ABDOMEN 08/03/2019 9:06 am COMPARISON: 08/02/2019 HISTORY: ORDERING SYSTEM PROVIDED HISTORY: SBO TECHNOLOGIST PROVIDED HISTORY: SBO Reason for Exam: supine FINDINGS: Nonspecific bowel gas pattern. No pathologic bowel dilatation. Gas throughout the colon. Rectal gas. Enteric tube within the stomach. No organomegaly. No suspicious calcifications. IMPRESSION: Nonspecific bowel gas pattern. [place] EXAMINATION: ONE SUP INE XRAY VIEW(S) OF THE ABDOMEN 08/03/2019 9:06 am COMPARISON: 08/02/2019 HISTORY: ORDERING SYSTEM PROVIDED HISTORY: SBO TECHNOLOGIST PROVIDED HISTORY: SBO Reason for Exam: supine FINDINGS: Nonspecific bowel gas pattern. No pathologic bowel dilatation. Gas throughout the colon. Rectal gas. Enteric tube within the stomach. No organomegaly. No suspicious calcifications. [place] CBC Auto Differentialon 10-0 Basophils (Bld) [#/Vol] 0.03 10*3/uL [place] Basophils/100 WBC (Bld) 0 % 0 - 2 % [place] Differential Type NOT REPORTED [place] Eosinophils (Bld) [#/Vol] 0.17 10*3/uL [place] Eosinophils/100 WBC (Bld) 2 % 1 - 4 % [place] Erythrocyte distribution width (RBC) [Ratio] 15.6 % High 11.8 - 14.4 % [place] Hematocrit (Bld) [Volume fraction] 36.3 % 36.3 - 47.1 % [place] Hemoglobin (Bld) [Mass/Vol] 11.7 g/dL Low 11.9 - 15.1 g/dL [place] Immature granulocytes (Bld) [#/Vol] 0 % 0 [place] Immature granulocytes (Bld) [#/Vol] 0.03 10*3/uL [place] Interpretation and review of laboratory results Abnormal [place] Lymphocytes (Bld) [#/Vol] 1.85 10*3/uL [place] Lymphocytes/100 WBC (Bld) 20 % Low 24 - 43 % [place] MCH (RBC) [Entitic mass] 27.9 pg 25.2 - 33.5 pg [place] MCHC (RBC) [Mass/Vol] 32.2 g/dL 28.4 - 34.8 g/dL [place] MCV (RBC) [Entitic vol] 86.6 fL 82.6 - 102.9 fL [place] Monocytes (Bld) [#/Vol] 1.08 10*3/uL [place] Monocytes/100 WBC (Bld) 12 % 3 - 12 % [place] Platelet mean volume (Bld) [Entitic vol] 9.3 fL 8.1 - 13.5 fL [place] Platelets (Bld) [#/Vol] 215 10*3/uL [place] Platelets (Bld) [#/Vol] NOT REPORTED [place] RBC (Bld) [#/Vol] 4.19 10*6/uL 3.95 - 5.11 m/uL [place] RBC morphology finding Nom (Bld) ANISOCYTOSIS PRESENT [place] Segmented neutrophils/100 WBC (Bld) 66 % High 36 - 65 % [place] Segs Absolute 6.12 [place] WBC (Bld) [#/Vol] 9.3 10*3/uL [place] WBC (Bld) [#/Vol] 0.0 10*3/uL 0.0 per 100 WBC [place] WBC Morphology NOT REPORTED [place] CBC with Diffon 08-02-2019 Abs. Basophil 0.03 k/uL Normal 0.00-0.20 [facility] Comment on above: Performed By: #### L ACWB, CDP, REJEC #### [facility] [employer] [facility] [place], [place] [phone] [employer]: Juan Perera MD Abs.Imm.Granulocyte 0.03 k/uL Normal 0.00-0.30 [facility] Comment on above: Performed By: #### L ACWB CDP, REJEC #### [address] [address] [employer]: Juan Perera MD Abs.Neutrophil (Seg) 6.12 k/uL Normal 1.50-8.10 [facility] Comment on above: Performed By: #### L ACWB CDP, REJEC #### [address] [address] [employer]: Juan Perera MD Basophils/100 WBC (Bld) 0 % Normal 0-2 [facility] Comment on above: Performed By: #### L ACWSandi CDP, REJEC #### [place] [address] [employer]: Juan Perera MD Eosinophils (Bld) [#/Vol] 0.17 10*3/uL Normal 0.00-0.44 [facility] Comment on above: Performed By: #### L ACARAMIS GARY, REJEC #### [address] [address] [employer]: Jaun Perera MD Eosinophils/100 WBC (Bld) 2 % Normal 1-4 [facility] Comment on above: Performed By: #### L ACWSandi CDP, REJEC #### [address] [address] [employer]: Juan Perera MD Immature granulocytes (Bld) [#/Vol] 0 % Normal 0 [facility] Comment on above: Performed By: #### L ACWB CDP, REJEC #### [address] [address] [employer]: Juan Perera MD Lymphocytes (Bld) [#/Vol] 1.85 10*3/uL Normal 1.10-3.70 [facility] Comment on above: Performed By: #### L ACWB, CDP, REJEC #### [address] [address] [employer]: Juan Perera MD Lymphocytes/100 WBC (Bld) 20 % Low 24-43 [facility] Comment on above: Performed By: #### L ACWB, CDP, REJEC #### [address] [address] [employer]: Juan Perera MD Monocytes (Bld) [#/Vol] 1.08 10*3/uL Normal 0.10-1.20 [facility] Comment on above: Performed By: #### L ACWB CDP, REJEC #### [address] [address] [employer]: Juan Perera MD Monocytes/100 WBC (Bld) 12 % Normal 3-12 [facility] Comment on above: Performed By: #### L ACWB CDP, REJEC #### [address] [address] [employer]: Juan Perera MD Neutrophil (Seg) 66 % High 36-65 [facility] Comment on above: Performed By: #### L ACWB CDP, REJEC #### [address] [address] [employer]: Juan Perera MD RBC morphology finding Nom (Bld) ANISOCYTOSIS PRESENT Normal [facility] Comment on above: Performed By: #### L ACWB CDP, REJEC #### [facility] [employer] [address] [place] [address] [employer]: Juan Perera MD Erythrocyte distribution width (RBC) [Ratio] 15.6 % High 11.8-14.4 [facility] Comment on above: Performed By: #### L ACWB CDP, REJEC #### [address] [address] [employer]: Juan Perera MD Hematocrit (Bld) [Volume fraction] 36.3 % Normal 36.3-47.1 [facility] Comment on above: Performed By: #### L ARAMIS HO, REJEC #### [address] [address] [employer]: Juan Perera MD Hemoglobin (Bld) [Mass/Vol] 11.7 g/dL Low 11.9-15.1 [facility] Comment on above: Performed By: #### L ARAMIS HO, REJEC #### [address] [address] [employer]: Juan Perera MD MCH (RBC) [Entitic mass] 27.9 pg Normal 25.2-33.5 [facility] Comment on above: Performed By: #### ARAMIS SORIANO, REJEC #### [address] [address] [employer]: Juan Perera MD MCHC (RBC) [Mass/Vol] 32.2 g/dL Normal 28.4-34.8 [facility] Comment on above: Performed By: #### L ARAMIS HO, REJEC #### [address] [address] [employer]: Juan Perera MD MCV (RBC) [Entitic vol] 86.6 fL Normal 82.6-102.9 [facility] Comment on above: Performed By: #### L ARAMIS HO, REJEC #### [address] [address] [employer]: Juan Perera MD NRBC Automated 0.0 per 100 WBC Normal 0.0 [facility] Comment on above: Performed By: #### L ACWB CDP, REJEC #### [address] [address] [employer]: Juan Perera MD Platelet mean volume (Bld) [Entitic vol] 9.3 fL Normal 8.1-13.5 [facility] Comment on above: Performed By: #### L ACWB CDP, REJEC #### [address] [address] [employer]: Juan Perera MD Platelets (Bld) [#/Vol] 215 10*3/uL Normal 138-453 [facility] Comment on above: Performed By: #### L ACWSandi CDP, REJEC #### [address] [address] [employer]: Juan Perera MD RBC (Bld) [#/Vol] 4.19 10*6/uL Normal 3.95-5.11 [facility] Comment on above: Performed By: #### L ACWARAMIS Junior, REJEC #### [address] [address] [employer]: Juan Perera MD WBC (Bld) [#/Vol] 9.3 10*3/uL Normal 3.5-11.3 [facility] Comment on above: Performed By: #### L ACWB CDP, REJEC #### [address] [address] [employer]: Juan Perera MD Auto Diff Performed NOT REPORTED Normal [facility] Comment on above: Performed By: #### L ACWB CDP, REJEC #### [address] [address] [employer]: Juan Perera MD Platelets (Bld) [#/Vol] NOT REPORTED Normal [facility] Comment on above: Performed By: #### L ARAMIS HO, REJEC #### [address] [address] [employer]: Juan Perera MD WBC Morphology NOT REPORTED Normal [facility] Comment on above: Performed By: #### L ARAMIS HO, REJEC #### [address] [address] [employer]: Juan Perera MD Comp Metabolic Profon 2018 (cont.) Normal [facility] Comment on above: Result Comment: Aver age GFR for 70 or more years old: 75 mL/min/1.73sq m Chronic Kidney Disease: <60 mL/min/1.73sq m Kidney failure: <15 mL/min/1.73sq m eGFR calculated using average adult body mass. Additional eGFR calculator available at: http://www.TripHobo/multiple_crcl_2011.htm Performed By: #### C P #### [address] [address] [employer]: Juan Perera MD Albumin [Mass/Vol] 3.1 g/dL Low 3.5-5.2 [facility] Comment on above: Performed By: #### C P #### [address] [address] [employer]: Juan Perera MD Albumin/Globulin [Mass ratio] 0.9 {ratio} Low 1.0-2.5 [facility] Comment on above: Performed By: #### C P #### [address] [address] [employer]: Juan Perera MD Alkaline Phos 68 U/L Normal 35-104 [facility] Comment on above: Performed By: #### C P #### [address] [address] [employer]: Juan Perera MD ALT [Catalytic activity/Vol] 8 U/L Normal 5-33 [facility] Comment on above: Performed By: #### C P #### [address] [address] [employer]: Juan Perera MD Anion gap [Moles/Vol] 9 mmol/L Normal 9-17 [facility] Comment on above: Performed By: #### C P #### [address] [address] [employer]: Juan Perera MD AST [Catalytic activity/Vol] 11 U/L Normal <32 [facility] Comment on above: Performed By: #### C P #### [address] [address] [employer]: Juan Perera MD Bilirubin Ql (U) 0.39 mg/dL Normal 0.3-1.2 [facility] Comment on above: Performed By: #### C P #### [address] [address] [employer]: Juan Perera MD Calcium [Mass/Vol] 8.6 mg/dL Normal 8.6-10.4 [facility] Comment on above: Performed By: #### C P #### [address] [address] [employer]: Juan Perera MD Chloride [Moles/Vol] 106 mmol/L Normal 98-107 [facility] Comment on above: Performed By: #### C P #### [address] [address] [employer]: Juan Perera MD CO2 [Moles/Vol] 25 mmol/L Normal 20-31 [facility] Comment on above: Performed By: #### C P #### [address] [address] [employer]: Juan Perera MD Creatinine [Mass/Vol] 0.68 mg/dL Normal 0.50-0.90 [facility] Comment on above: Performed By: #### C P #### [address] [address] [employer]: Juan Perera MD GFR, Amer >60 Normal >60 [facility] Comment on above: Performed By: #### C P #### [address] [address] [employer]: Juan Perera MD GFR,non Amer >60 Normal >60 [facility] Comment on above: Performed By: #### C P #### [address] [address] [employer]: Juan Perera MD Glucose [Mass/Vol] 108 mg/dL High 70-99 [facility] Comment on above: Performed By: #### C P #### [address] [address] [employer]: Juan Perera MD Potassium [Moles/Vol] 3.8 mmol/L Normal 3.7-5.3 [facility] Comment on above: Performed By: #### C P #### [address] [address] [employer]: Juan Perera MD Protein [Mass/Vol] 6.4 g/dL Normal 6.4-8.3 [facility] Comment on above: Performed By: #### C P #### [address] [address] [employer]: Juan Perera MD Sodium [Moles/Vol] 140 mmol/L Normal 135-144 [facility] Comment on above: Performed By: #### C P #### [address], [place] [id number] [employer]: Juan Perera MD Urea nitrogen [Mass/Vol] 14 mg/dL Normal 8- [facility] Comment on above: Performed By: #### C P #### [facility] [address] [place] [address] [employer]: Juan Perera MD BUN/CRE Ratio NOT REPORTED Normal 9- [facility] Comment on above: Performed By: #### C P #### [facility] [address] [place] [address] [employer]: Juan Perera MD Staging: NOT REPORTED Normal [facility] Comment on above: Performed By: #### C P #### [address] [place] [address] [employer]: Juan Perera MD Comprehensive Metabolic [facility] 08-02-2019 Albumin [Mass/Vol] 3.1 g/dL Low 3.5 - 5.2 g/dL [place], [place] Albumin/Globulin [Mass ratio] 0.9 {ratio} Low [place] ALP [Catalytic activity/Vol] 68 U/L 35 - 104 U/L [place] ALT [Catalytic activity/Vol] 8 U/L 5 - 33 U/L [place] Anion gap [Moles/Vol] 9 mmol/L 9 - 17 mmol/L [place] AST [Catalytic activity/Vol] 11 U/L <32 [place] Bilirubin Ql (U) 0.39 mg/dL 0.3 - 1.2 mg/dL [place] Bun/Cre Ratio NOT REPORTED [place] Calcium [Mass/Vol] 8.6 mg/dL 8.6 - 10. 4 mg/dL [place] Chloride [Moles/Vol] 106 mmol/L 98 - 10 7 mmol/L [place] CO2 [Moles/Vol] 25 mmol/L 20 - 31 mmol/L [place] Creatinine [Mass/Vol] 0.68 mg/dL 0.5 - 0.9 mg/dL [place] GFR >60 >60 mL/min [place] GFR Non- >60 >60 mL/min [place] GFR/1.73 sq M predicted among non-blacks MDRD (S/P/Bld) [Vol rate/Area] [place] Comment on above: Average GFR for 70 o r more years old: 75 mL/min/1.73sq m Chronic Kidney Disease: <60 mL/min/1.73sq m Kidney failure: <15 mL/min/1.73sq m eGFR calculated using average adult body mass. Additional eGFR calculator available at: http://www.TripHobo/multiple_crcl_2012.htm GFR/1.73 sq M predicted among non-blacks MDRD (S/P/Bld) [Vol rate/Area] NOT REPORTED [place] Glucose [Mass/Vol] 108 mg/dL High 70 - 99 mg/dL [place] Interpretation and review of laboratory results Abnormal [place] Potassium [Moles/Vol] 3.8 mmol/L 3.7 - 5.3 mmol/L [place] Protein [Mass/Vol] 6.4 g/dL 6.4 - 8.3 g/dL [place] Sodium [Moles/Vol] 140 mmol/L 135 - 144 mmol/L [place] Urea nitrogen [Mass/Vol] 14 mg/dL 8 - 23 mg/dL [place] LACTIC ACID, WHOLE BLOODon 1 Lactic Acid, Whole Blood 1.0 mmol/L 0.7 - 2.1 mmol/L [place] Lactic Acid,Whole Blon 08-02 Lactic Acid,Whole Bl 1.0 mmol/L Normal 0.7-2.1 [facility] Comment on above: Performed By: #### L ACWB, CDP, REJEC #### [facility] [employer] [address] [place] [address] [employer]: Juan Perera MD SPECIMEN REJECTIONon 019 Ordered Test CP [place], [place] Reason for Rejection Unable to perform t esting: Specimen hemolyzed. [place] Specimen source Nom (Unsp spec) SCIENTIFIC EDITOR [place] - NOT REPORTED [place] Specimen Rejectionon 019 Reason for rejection Unable to perform t esting: Specimen hemolyzed. [facility] Comment on above: Performed By: #### L ACWB, CDP, REJEC #### [employer] [address] [place] [address] [employer]: Juan Perera MD Source of sample SCIENTIFIC EDITOR [facility] Comment on above: Performed By: #### L ACWB, CDP, REJEC #### [employer] [address] [place] [address] [employer]: Juan Perera MD Test ordered CP [facility] Comment on above: Performed By: #### L ACWB, CDP, REJEC #### [employer] [address] [place] [address] [employer]: Juan Perera MD ----- NOT REPORTED [facility] Comment on above: Performed By: #### L ACWB, CDP, REJEC #### [employer] [address] [place] [address] [employer]: Juan Perera MD XR ABDOMEN FOR NG/OG/NE [...] Eduardo Horner MD 08/02/19 Final result Normal [facility] Robert, Mhpn Incoming R adiant Results [...] The tube should be advanced 4 cm. [facility] [place] EXAMINATION: ONE SUP INE XRAY VIEW(S) OF [...] system. Very little bowel gas is seen. [facility] [place] The tip of the enter ic tube is in the stomach though the proximal side hole is in the esophagus. The tube should be advanced [facility] [place] [facility] Screeni ng Bilat.on 07-02-2018 MA [...] lymph nodes are noted bilaterally.I CAD image power checker was utilized for this study.IMPRESSION:1. NO [...] reports average 6 to 10%.TARIQ Stoddard #: [id number]: 07/03/2018T: 07/03/2018 Final Dictated by: Chidi Preston MD SDictated DT/TM: 07/03/18 9:47Signed (Electronic Signature): Chidi Preston MD 07/03/18 1:53 pmTechnologist: CMAAssessment: 2-Benign findingRecommendation: Normal interval follow-up [facility] Provider Orderson 06-19-2018 Protein mass conc [id number] [facility] Coding Summaryon 09-03-2017 Coding Summary CODING DATE: 017 [facility] STATUS: Home PAYOR: Medicare ADMIT DX: [...] Waller Revised Date Saved: 06/24/2017 10:[address] [facility] Vital Signs Date Time Vital Sign Value Performing Clinician Facility 02-19-2024 19:31-0400 SaO2% (BldA) [Mass fraction] 95 % APURVA Adhikari [facility] Comment on above: Performed By: #### ELEC #### [facility] ([id number]) [address], [address] [place] [address] 02-17-2024 16:00-0400 Inhaled oxygen flow rate 3.5 L/min DO Gustavo Salas Work Phone: [facility] 02-17-2024 16:00-0400 SaO2% (BldA) [Mass fraction] 90 % DO Gustavo Salas Work Phone: [facility] 02-17-2024 14:02-0400 Body height 152.4 cm DO Gustavo Salas Work Phone: [facility] 02-17-2024 12:32-0400 Diastolic blood pressure 53 mm[Hg] DO Gustavo Salas Work Phone: [facility] 02-17-2024 12:32-0400 Heart rate 96 /min DO Gustavo Salas Work Phone: [facility] 02-17-2024 12:32-0400 Respiratory rate 18 /min DO Gustavo Salas Work Phone: [facility] 02-17-2024 12:32-0400 Systolic blood pressure 116 mm[Hg] DO Gustavo Salas Work Phone: [facility] 02-17-2024 08:00-0400 Body temperature 97.8 [degF] DO Gustavo Salas Work Phone: [facility] 02-17-2024 05:48-0400 Body weight 86.1 kg DO Gustavo Maritza Work Phone: [facility] 02-14-2024 16:43-0400 Body height 152.4 cm DO Gustavovanesa Salas Work Phone: [facility] 02-14-2024 16:43-0400 Body temperature 98.3 [degF] DO Gustavo Salas Work Phone: [facility] 02-14-2024 16:43-0400 Body weight 84.9 kg DO Gustavo Salas Work Phone: [facility] 02-14-2024 16:43-0400 Diastolic blood pressure 69 mm[Hg] DO Gustavo Salas Work Phone: [facility] 02-14-2024 16:43-0400 Heart rate 105 /min DO Gustavo Salas Work Phone: [facility] 02-14-2024 16:43-0400 Inhaled oxygen flow rate 4 L/min DO Gustavo Salas Work Phone: [facility] 02-14-2024 16:43-0400 Respiratory rate 20 /min DO Gustavo Salas Work Phone: [facility] 02-14-2024 16:43-0400 SaO2% (BldA) [Mass fraction] 92 % DO Gustavo Salas Work Phone: [facility] 02-14-2024 16:43-0400 Systolic blood pressure 119 mm[Hg] DO Gustavo Salas Work Phone: [facility] 02-10-2024 12:36-0400 Body height 152.4 cm Jenna Engle MD Work Phone: [facility] 02-10-2024 12:36-0400 Body mass index (BMI) [Ratio] 35.15 kg/m2 Jenna Engle MD Work Phone: [facility] 02-10-2024 12:36-0400 Body weight 81.65 kg Jenna Engle MD Work Phone: [facility] 02-10-2024 12:36-0400 Diastolic blood pressure 70 mm[Hg] Jenna Engle MD Work Phone: [facility] 02-10-2024 12:36-0400 Heart rate 96 /min Jenna Engle MD Work Phone: [facility] 02-10-2024 12:36-0400 Systolic blood pressure 120 mm[Hg] Jenna Engle MD Work Phone: [facility] 01-30-2024 13:31-0400 Blood Pressure Location Renae Orzech [facility] 01-30-2024 13:31-0400 Body temperature 98.24 [degF] Renae Orzech [facility] 01-30-2024 13:31-0400 Diastolic blood pressure 82 mm[Hg] Renae Orzech [facility] 01-30-2024 13:31-0400 Heart rate 84 /min Renae Orzech [facility] 01-30-2024 13:31-0400 Systolic blood pressure 118 mm[Hg] Renae Orzech [facility] 01-27-2024 13:42-0400 Body height 162.[address] 01-27-2024 13:42-0400 Body mass index (BMI) [Ratio] 32.96 kg/m2 [address] 01-27-2024 13:42-0400 Body weight 87.[address] 01-27-2024 13:42-0400 Diastolic blood pressure 78 mm[Hg] [address] 01-27-2024 13:42-0400 Systolic blood pressure 126 mm[Hg] [address] 01-06-2024 11:39-0400 Diastolic blood pressure 72 mm[Hg] Jenna Engle MD Work Phone: [facility] 01-06-2024 11:39-0400 Systolic blood pressure 128 mm[Hg] Jenna Engle MD Work Phone: [facility] 01-06-2024 11:38-0400 Body height 162.6 cm Jenna Engle MD Work Phone: [facility] 01-06-2024 11:38-0400 Body mass index (BMI) [Ratio] 32.96 kg/m2 Jenna Engle MD Work Phone: [facility] 01-06-2024 11:38-0400 Body weight 87.09 kg Jenna Engle MD Work Phone: [facility] 01-06-2024 11:38-0400 Heart rate 62 /min Jenna Engle MD Work Phone: [facility] 12-09-2023 11:08-0500 Body mass index (BMI) [Ratio] 34.18 kg/m2 Gustavo Salas DO Work Phone: [facility] 12-09-2023 11:08-0500 Body temperature 97.5 [degF] Gustavo Salas DO Work Phone: [facility] 12-09-2023 11:08-0500 Body weight 79.38 kg Gustavo Salas DO Work Phone: [facility] 12-09-2023 11:08-0500 Diastolic blood pressure 72 mm[Hg] Gustavo Salas DO Work Phone: [facility] 12-09-2023 11:08-0500 Heart rate 106 /min Gustavo Salas DO Work Phone: [facility] 12-09-2023 11:08-0500 SaO2% (BldA) [Mass fraction] 96 % Gustavo Salas DO Work Phone: [facility] 12-09-2023 11:08-0500 Systolic blood pressure 122 mm[Hg] Gustavo Salas DO Work Phone: [facility] 08-20-2023 16:32-0400 Heart rate 95 /min DO Gustavo Salas Work Phone: [facility] 08-20-2023 16:32-0400 Respiratory rate 20 /min DO Gustavo Salas Work Phone: [facility] 08-20-2023 12:00-0400 Body temperature 98.1 [degF] DO Gustavo Salas Work Phone: [facility] 08-20-2023 12:00-0400 Diastolic blood pressure 90 mm[Hg] DO Gustavo Salas Work Phone: [facility] 08-20-2023 12:00-0400 SaO2% (BldA) [Mass fraction] 95 % DO Gustavo Salas Work Phone: [facility] 08-20-2023 12:00-0400 Systolic blood pressure 125 mm[Hg] DO Gustavo Salas Work Phone: [facility] 08-20-2023 04:47-0400 Body weight 82.7 kg DO Gustavo Salas Work Phone: [facility] 08-19-2023 13:57-0400 Body height 152.4 cm DO Gustavo Salas Work Phone: [facility] 08-17-2023 20:08-0400 Diastolic blood pressure 68 mm[Hg] DO Gustavo Salas Work Phone: [facility] 08-17-2023 20:08-0400 Heart rate 80 /min DO Gustavo Salas Work Phone: [facility] 08-17-2023 20:08-0400 Respiratory rate 20 /min DO Gustavovanesa Salas Work Phone: [facility] 08-17-2023 20:08-0400 SaO2% (BldA) [Mass fraction] 95 % DO Gustavo Salas Work Phone: [facility] 08-17-2023 20:08-0400 Systolic blood pressure 132 mm[Hg] DO Gustavo Maritza Work Phone: [facility] 08-17-2023 16:09-0400 Body temperature 97.4 [degF] DO Gustavo Maritza Work Phone: [facility] 08-17-2023 16:07-0400 Body height 152.4 cm DO Gustavo Maritza Work Phone: [facility] 08-17-2023 16:07-0400 Body weight 81 kg DO Gustavo Salas Work Phone: [facility] 07-14-2023 13:39-0400 Body temperature 97.8 [degF] DO Gustavo Salas Work Phone: [facility] 07-14-2023 13:39-0400 Diastolic blood pressure 79 mm[Hg] DO Gustavo Salas Work Phone: [facility] 07-14-2023 13:39-0400 Heart rate 80 /min DO Gustavo Salas Work Phone: [facility] 07-14-2023 13:39-0400 Respiratory rate 18 /min DO Gustavo Salas Work Phone: [facility] 07-14-2023 13:39-0400 SaO2% (BldA) [Mass fraction] 94 % DO Gustavo Salas Work Phone: [facility] 07-14-2023 13:39-0400 Systolic blood pressure 110 mm[Hg] DO Gustavo Maritza Work Phone: [facility] 07-14-2023 06:00-0400 Body weight 90.1 kg DO Gustavo Maritza Work Phone: [facility] 07-11-2023 15:28-0400 Body height 152.4 cm DO Gustavo Maritza Work Phone: [facility] 07-10-2023 13:00-0400 Diastolic blood pressure 59 mm[Hg] DO Gustavo Maritza Work Phone: [facility] 07-10-2023 13:00-0400 Heart rate 72 /min DO Gustavo Maritza Work Phone: [facility] 07-10-2023 13:00-0400 Respiratory rate 18 /min DO Gustavo Maritza Work Phone: [facility] 07-10-2023 13:00-0400 SaO2% (BldA) [Mass fraction] 96 % DO Gustavo Salas Work Phone: [facility] 07-10-2023 13:00-0400 Systolic blood pressure 107 mm[Hg] DO Gustavo Maritza Work Phone: [facility] 06-17-2023 15:04-0400 Body height 152.4 cm DO Gustavo Salas Work Phone: [facility] 06-17-2023 15:04-0400 Body temperature 98.7 [degF] DO Gustavo Salas Work Phone: [facility] 06-17-2023 15:04-0400 Body weight 80.28 kg DO Gustavo Salas Work Phone: [facility] 06-17-2023 15:04-0400 Diastolic blood pressure 55 mm[Hg] DO Gustavovanesa Salas Work Phone: [facility] 06-17-2023 15:04-0400 Heart rate 76 /min DO Gustavo Maritza Work Phone: [facility] 06-17-2023 15:04-0400 Respiratory rate 19 /min DO Gustavo Maritza Work Phone: [facility] 06-17-2023 15:04-0400 SaO2% (BldA) [Mass fraction] 96 % DO Gustavo Maritza Work Phone: [facility] 06-17-2023 15:04-0400 Systolic blood pressure 110 mm[Hg] DO Gustavo Salas Work Phone: [facility] 12-31-2022 11:45-0500 Body temperature 97.3 [degF] DO Gustavo Salas Work Phone: [facility] 12-31-2022 11:45-0500 Diastolic blood pressure 72 mm[Hg] DO Gustavo Salas Work Phone: [facility] 12-31-2022 11:45-0500 Heart rate 78 /min DO Gustavo Salas Work Phone: [facility] 12-31-2022 11:45-0500 Inhaled oxygen flow rate 2 L/min DO Gustavo Salas Work Phone: [facility] 12-31-2022 11:45-0500 Respiratory rate 18 /min DO Gustavo Salas Work Phone: [facility] 12-31-2022 11:45-0500 SaO2% (BldA) [Mass fraction] 92 % DO Gustavo Salas Work Phone: [facility] 12-31-2022 11:45-0500 Systolic blood pressure 114 mm[Hg] DO Gustavo Salas Work Phone: [facility] 12-31-2022 06:00-0500 Body weight 83.5 kg DO Gustavo Salas Work Phone: [facility] 12-27-2022 10:00-0500 Body height 152.4 cm DO Gustavo Salas Work Phone: [facility] 12-26-2022 23:00-0500 Diastolic blood pressure 60 mm[Hg] DO Gustavo Salas Work Phone: [facility] 12-26-2022 23:00-0500 Heart rate 77 /min DO Gustavovanesa Salas Work Phone: [facility] 12-26-2022 23:00-0500 Respiratory rate 18 /min DO Gustavo Salas Work Phone: [facility] 12-26-2022 23:00-0500 SaO2% (BldA) [Mass fraction] 94 % DO Gustavo Salas Work Phone: [facility] 12-26-2022 23:00-0500 Systolic blood pressure 130 mm[Hg] DO Gustavo Salas Work Phone: [facility] 12-26-2022 18:59-0500 Body height 152.4 cm DO Gustavo Salas Work Phone: [facility] 12-26-2022 18:59-0500 Body temperature 98.8 [degF] DO Gustavo Salas Work Phone: [facility] 12-26-2022 18:59-0500 Body weight 84.3 kg DO Gustavo Salas Work Phone: [facility] 11-22-2022 11:25-0500 Body temperature 97.5 [degF] DO Gustavo Salas Work Phone: [facility] 11-22-2022 11:25-0500 Diastolic blood pressure 68 mm[Hg] DO Gustavo Salas Work Phone: [facility] 11-22-2022 11:25-0500 Heart rate 72 /min DO Gustavo Salas Work Phone: [facility] 11-22-2022 11:25-0500 Respiratory rate 22 /min DO Gustavo Salas Work Phone: [facility] 11-22-2022 11:25-0500 SaO2% (BldA) [Mass fraction] 93 % DO Gustavo aSlas Work Phone: [facility] 11-22-2022 11:25-0500 Systolic blood pressure 146 mm[Hg] DO Gustavo Maritza Work Phone: [facility] 11-22-2022 10:26-0500 Body height 152.4 cm DO Gustavo Salas Work Phone: [facility] 11-22-2022 10:26-0500 Body weight 87.9 kg DO Gustavo Salas Work Phone: [facility] 05-31-2022 15:12-0400 Diastolic blood pressure 75 mm[Hg] DO Gustavo Salas Work Phone: [facility] 05-31-2022 15:12-0400 Heart rate 69 /min DO Gustavo Salas Work Phone: [facility] 05-31-2022 15:12-0400 Respiratory rate 25 /min DO Gustavo Salas Work Phone: [facility] 05-31-2022 15:12-0400 SaO2% (BldA) [Mass fraction] 98 % DO Gustavo Salas Work Phone: [facility] 05-31-2022 15:12-0400 Systolic blood pressure 156 mm[Hg] DO Gustavo Salas Work Phone: [facility] 05-31-2022 11:02-0400 Body height 154.94 cm DO Gustavo Salas Work Phone: [facility] 05-31-2022 11:02-0400 Body temperature 97.1 [degF] DO Gustavo Salas Work Phone: [facility] 05-31-2022 11:02-0400 Body weight 86.18 kg DO Gustavo Salas Work Phone: [facility] 08-04-2019 08:30-0400 Body Temperature 97.81 [degF] Hayden Watters [facility], [place] 08-04-2019 08:30-0400 BP Diastolic 69 mm[Hg] Hayden Watters [facility] [place] 08-04-2019 08:30-0400 BP Systolic 161 mm[Hg] Hayden Watters [facility], [place] 08-04-2019 08:30-0400 Pulse (Heart Rate) 78 /min [facility] [place] 08-04-2019 08:30-0400 Pulse Oximetry 92 % [facility] [place] [facility]-04-2019 08:30-0400 Respiratory Rate 18 /min [facility] [place] 08-02-2019 01:00-0400 BMI (Body Mass Index) 34.44 kg/m2 [facility] [place] 08-02-2019 01:00-0400 Body weight 82.67 kg [facility] [place] 08-02-2019 01:00-0400 Height 154.9 cm [facility] [place] Encounters Encounter Date Encounter Type Care [...] Available Start: 04-27-2024 End: [facility]: [facility]-13-[facility] End: 04-13-2024 ambulatory [facility] Start: 04-08-2024 End: 04-08-2024 ambulatory [facility] Start: 04-02-2024 End: 04-02-2024 ambulatory [facility] Start: 03-30-2024 End: 03-30-2024 ambulatory KEIKO BOWDEN [facility] Start: 03-18-2024 End: 03-18-2024 ambulatory KEIKO BOWDEN [facility] Start: 03-17-2024 End: 03-17-2024 ambulatory GINNY BELCHER [facility] Start: 03-11-2024 End: 03-11-2024 [facility] Start: 03-05-2024 End: 03-05-2024 ambulatory TODD Leonard [facility] Start: 03-04-2024 End: 03-04-2024 ambulatory GUSTAVO Person [facility] Start: 03-03-2024 End: 03-03-2024 ambulatory TODD Leonard [facility] Start: 03-02-2024 End: 03-02-2024 ambulatory TODD Leonard [facility] Start: 02-27-2024 End: 02-27-2024 ambulatory TODD POSEY [facility] Start: 02-19-2024 End: 02-26-2024 Emergency department patient visit OVIDIO [facility] Start: 02-19-2024 End: 02-25-2024 Evaluation and management of inpatient GUSTAVO Person [facility] Start: 02-19-2024 End: 02-26-2024 Emergency department patient visit OVIDIO J [facility] Start: 02-14-2024 Non-patient / Non-visit DO David Salas Work Phone: [facility] Work Phone: Start: 02-14-2024 End: 02-17-2024 Evaluation and management of inpatient DO Gustavo Salas Work Phone: [facility] Work Phone: Start: 02-10-2024 End: 02-10-2024 ambulatory [facility] Start: 02-10-2024 End: 02-10-2024 Office outpatient visit 25 minutes Jenna Engle MD Work Phone: [facility] Comment on above: Shortness of breath; 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; History of PTCA; Essential hypertension; Hyperlipidemia, mixed; Obstructive sleep apnea syndrome; BMI 35.0-35.9,adult; Current smoker; Chronic hypoxemic respiratory failure (Multi); Encounter to discuss test results Start: 02-05-2024 End: 02-05-2024 ambulatory GUSTAVO SAALS Not Available Start: 01-30-2024 End: 01-31-2024 ambulatory Renae X Orzech Facility:[facility] Start: 01-30-2024 End: 01-31-2024 ambulatory Renae X Orzech Facility:[facility] Start: 01-30-2024 End: 01-30-2024 Lab Drop off Renae X Orzech [facility] Start: 01-30-2024 End: 01-30-2024 Patient encounter procedure Renae X Orzech [facility] [place] Start: 01-27-2024 End: 01-28-2024 ambulatory [facility] Start: 01-27-2024 End: 01-27-2024 Subsequent hospital visit by physician Magnolia Garzon Echo/Vasc Room [facility] Comment on above: Shortness of breath Start: 01-13-2024 ambulatory Renae Orzech Facility: [facility] Start: 01-10-2024 End: 01-10-2024 ambulatory GUSTAVO SALAS Not Available Start: 01-06-2024 End: 01-06-2024 Patient encounter procedure DO Gustavo Salas Work Phone: [facility] Work Phone: Start: 01-06-2024 End: 01-06-2024 ambulatory [facility] Start: 01-06-2024 End: 01-06-2024 Office consultation new/estab patient 80 min Jenna Engle MD Work Phone: [facility] Comment on above: Shortness of breath; 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; Stage 3b chronic [...] 40 minutes Gustavo Salas DO Work Phone: [facility] Comment on above: SOB (shortness of [...] Evaluation and management of inpatient NANCY BERRY [facility] Start: 10-18-2023 End: 10-24-2023 Evaluation and management of inpatient PAUL CONTRER[facility] Start: 10-17-2023 End: 12-28-2023 Evaluation and management of inpatient BING CLAUDIO TAPIA [facility] Start: 10-15-2023 End: 10-24-2023 Evaluation and management of inpatient ASHLEY MOONEY [facility] Start: 10-14-2023 End: 10-24-2023 Evaluation and management of inpatient [facility] Start: 10-10-2023 End: 10-24-2023 Evaluation and management of inpatient MIDDLESEX E [facility] Start: 10-08-2023 End: 10-24-2023 Evaluation and management of inpatient NOE OSEI [facility] Start: 10-06-2023 End: 10-24-2023 Evaluation and management of inpatient SUSANA VELAZQUEZ [facility] Start: 10-06-2023 End: 10-24-2023 Evaluation and management of inpatient FRANCINE YANG [facility] Start: 10-06-2023 End: 10-24-2023 Evaluation and management of inpatient SHEILA RODRIGUEZ [facility] Start: 10-05-2023 End: 10-24-2023 Evaluation and management of inpatient RABBIA L MARIELA [facility] Start: 10-05-2023 End: 10-23-2023 Evaluation and management of inpatient ALI TRINA [facility] Start: 08-17-2023 End: 08-20-2023 Evaluation and management of inpatient DO Gustavo Salas Work Phone: [facility] Work Phone: Start: 07-10-2023 End: 07-14-2023 Evaluation and management of inpatient DO Gustavo Salas Work Phone: [facility] Work Phone: Start: 06-17-2023 End: 06-17-2023 Emergency department patient visit DO Gustavo Salas Work Phone: [facility] Work Phone: Start: 04-01-2023 End: 04-26-2023 Patient encounter procedure Gustavo Salas DO Work Phone: [facility] Start: 01-22-2023 ambulatory NARCISO WHITINGY . Facility:[facility] Start: 12-27-[address] Charlie Gao II Facility:90 Start: 12-26-2022 End: 12-31-2022 Evaluation and management of inpatient DO Gustavo Salas Work Phone: [facility] Work Phone: Start: 11-22-2022 End: 11-22-2022 Emergency department patient visit DO Gustavo Salas Work Phone: [facility] Work Phone: Start: 05-31-2022 End: 05-31-2022 Emergency department patient visit DO Gustavo Salas Work Phone: [facility] Start: 05-03-2022 End: 05-03-2022 ambulatory Jorge A Renetta Other [email or web address] Other Start: 05-03-2022 Telephone encounter Jorge A Renetta [facility] Start: 04-24-2022 End: 04-24-2022 ambulatory Jorge A Renetta Other [email or web address] Other Start: 04-24-2022 Telephone encounter Jorge A Renetta [facility] Start: 03-12-[address] Charlie Mondragon II Facility: Start: 03-08-2022 End: 03-08-2022 ambulatory Jorge A Renetta Other [email or web address] Other Start: 03-08-2022 Telephone encounter Jorge A Renetta [facility] Start: 01-18-2022 End: 01-18-2022 ambulatory Tanya Cesar Other [email or web address] Other Start: 01-18-2022 Telephone encounter Tanya Guerrero [facility] Start: 10-26-2021 End: 10-26-2021 ambulatory Jorge A Jackson Other [facility] [employer] Other Start: 10-26-2021 Telephone encounter Jorge A Jackson [facility] Start: 08-02-2019 End: 08-04-2019 Evaluation and management of inpatient CRYS BARBOZA [facility] Start: 08-01-2019 End: 08-04-2019 Evaluation and management of inpatient Hayden Bueno Work Phone: [facility] Start: 07-03-2018 End: 07-03-2018 Patient encounter Mely Camarillo Facility:[facility] Procedures Date Procedure Procedure Detail Performing Clinician Start: 03-17-2024 Follow-up visit Follow-up CARY BELCHER Start: 02-19-2024 Cyclic citrullinated peptide antibody APURVA SIERRA Comment on above: Result Comment: Interpretation-------- <3 Negative >=3 Positive Performed By: #### E LEC #### [facility] ([id number]) [address] [place] [address], [address] [place] [address] Start: 02-16-2024 Investigation of transfusion reaction DO [...] Positive Performed By: #### C SRINI, BMP, 90302-1, 2777-1 #### [facility] ([id number]) [address], [address] [place] [address] Start: 10-06-2023 Adult depression screening assessment Amrit [...] BARBOZA Start: 08-02-2019 Comprehensive metabo lic panel [facility] Work Phone: Start: 08-02-2019 Assay of [...] Activity Detail Author Start: 01-26-2025 Echocardiography Echocardiogram [facility] Start: 10-23-2024 Adult BMI Screening Adult BMI Screening [facility] Start: 10-07-2024 Echocardiography Echocardiogram [facility] Start: 10-06-2024 Depression Screening Depression Screening [facility] Start: 10-06-2024 Tobacco Screening Tobacco Screening [facility] Start: 04-27-2024 Screening for osteoporosis Bone Density Scan [facility] Start: 04-01-2024 Medicare Annual Wellness (AWV) Medicare Annual Wellness (AWV) [facility] Start: 02-19-2024 [facility] Start: 02-18-2024 [facility] Start: 02-17-2024 [facility] Start: 02-16-2024 Microbial culture of sputum [facility] Start: 02-14-2024 [facility] Start: 02-14-2024 Referral to Senior Support Engineer [facility] Start: 02-14-2024 [facility] Start: 02-14-2024 Hospital admission [facility] Start: 02-14-2024 Bacteria identified in Blood by Culture [facility] Start: 02-14-2024 Bacteria identified in Urine by Culture [facility] Start: 02-14-2024 Blood culture for bacteria, including anaerobic screen Blood Culture [facility] Start: 02-14-2024 Duplex scan of lower limb veins US venous duplex LE RT [facility] Start: 02-14-2024 US Lower extremity vein - right [facility] Start: 02-10-2024 End: 02-10-2024 Patient encounter procedure 02/10/2024 12:30 PM EDT Office Visit [place] [id number] [place] [address] Jenna Engle MD [address] [place] [address], [place] [id number] [facility] Start: 01-27-2024 End: 01-27-2024 Patient encounter procedure 01/27/2024 1:30 PM EDT Appointment [place] [id number] [place] [address] [facility] Start: 01-10-2024 End: 01-10-2024 Patient encounter procedure 01/10/2024 2:00 PM EDT Office Visit [facility] [address] [place] [address] William Gallagher MD [address] [facility] [place] [address] [facility] Start: 01-06-2024 End: 01-05-2025 CBC panel - Blood by Automated count CBC Lab Routine Shortness of breath Expected: 01/06/2024 (Approximate), Expires: 01/05/2025 [facility] Work Phone: Comment on above: Expected: 01/06/2024 (Approximate), Expi res: 01/05/2025 Start: 01-06-2024 End: 01-05-2025 Comprehensive metabolic 2000 panel - Serum or Plasma Comprehensive Metabolic Panel Lab Routine Shortness of breath Expected: 01/06/2024 (Approximate), Expires: 01/05/2025 [facility] Work Phone: Comment on above: Expected: 01/06/2024 (Approximate), Expi res: 01/05/2025 Start: 01-06-2024 End: 01-05-2025 Erythrocyte sedimentation rate Sedimentation Rate Lab Routine Shortness of breath Expected: 01/06/2024 (Approximate), Expires: 01/05/2025 [facility] Work Phone: Comment on above: Expected: 01/06/2024 (Approximate), Expi res: 01/05/2025 Start: 01-06-2024 End: 01-05-2025 Natriuretic peptide B [Mass/volume] in Blood B-Type Natriuretic Peptide Lab Routine Shortness of breath Expected: 01/06/2024 (Approximate), Expires: 01/05/2025 [facility] Work Phone: Comment on above: Expected: 01/06/2024 (Approximate), Expi res: 01/05/2025 Start: 01-06-2024 End: 01-05-2026 US Heart Transthoracic Transthoracic Echo Complete Echocardiography Routine Shortness of breath Expected: 01/06/2024 (Approximate), Expires: 01/05/2026 [facility] Service Area Work Phone: Comment on above: Expected: 01/06/2024 (Approximate), Expi res: 01/05/2026 Start: 01-06-2024 End: 01-05-2025 XR Chest 2 Views XR chest 2 views Imaging Routine Shortness of breath Expected: 01/06/2024 (Approximate), Expires: 01/05/2025 [facility] Work Phone: Comment on above: Expected: 01/06/2024 (Approximate), Expi res: 01/05/2025 Start: 12-30-2023 End: 12-30-2023 Patient encounter procedure 12/30/2023 11:15 AM EST Office Visit [facility] [address] [place] [address] Gustavo Salas DO [address] [place] [address] [facility] Start: 12-16-2023 End: 12-16-2023 Patient encounter procedure 12/16/2023 11:30 AM EST Office Visit [facility] [address] [place] [phone] Yovani Glover PA-C [address] [place] [address] [facility] Start: 12-09-2023 End: 12-09-2024 Bacteria identified in Urine by Culture Urine culture (clean catch) Microbiology Routine Urinary tract bacterial infections Expected: 12/09/2023 (Approximate), Expires: 12/09/2024 [facility] Comment on above: Expected: 12/09/2023 (Approximate), Expi res: 12/09/2024 Start: 12-09-2023 End: 12-09-2024 CBC W Auto Differential panel - Blood CBC and differential Lab Routine Essential hypertension (CMS/HCC) Expected: 12/09/2023 (Approximate), Expires: 12/09/2024 [facility] Work Phone: Comment on above: Expected: 12/09/2023 (Approximate), Expi res: 12/09/2024 Start: 12-09-2023 End: 12-09-2024 Comprehensive metabolic 2000 panel - Serum or Plasma Comprehensive metabolic panel Lab Routine Essential hypertension (CMS/HCC) Expected: 12/09/2023 (Approximate), Expires: 12/09/2024 [facility] Comment on above: Expected: 12/09/2023 (Approximate), Expi res: 12/09/2024 Start: 12-09-2023 End: 12-09-2024 Magnesium [Mass/volume] in Serum or Plasma Magnesium Lab Routine Stage 3a chronic kidney disease (HCC) (CMS/HCC) Expected: 12/09/2023 (Approximate), Expires: 12/09/2024 [facility] Comment on above: Expected: 12/09/2023 (Approximate), Expi res: 12/09/2024 Start: 11-11-2023 End: 11-11-2023 Patient encounter procedure 11/11/2023 9:15 AM EST Office Visit [facility] [address] [place] [phone] Jose Martin aGlicia MD [address] [place] [address] [facility] Start: 11-05-2023 End: 11-05-2023 Patient encounter procedure 11/05/2023 12:30 PM EST Office Visit [facility] [address] [place] [phone] Yovani Glover PA-C [address] [place] [address] [facility] Start: 08-20-2023 [facility] Start: 08-19-2023 Stool culture for bacteria Stool Culture [facility] Start: 08-18-2023 Blood chemistry [facility] Start: 08-18-2023 Duplex scan of lower limb veins US venous duplex LE BI [facility] Start: 08-18-2023 [facility] Start: 08-18-2023 Referral to Senior Support Engineer [facility] Start: 08-17-2023 Hospital admission [facility] Start: 08-17-2023 Physical therapy procedure [facility] Start: 08-17-2023 Referral to occupational therapist [facility] Start: 08-17-2023 [facility] Start: 08-17-2023 Bacteria identified in Stool by Culture [facility] Start: 08-17-2023 [facility] Start: 08-17-2023 Bacteria identified in Blood by Culture [facility] Start: 08-17-2023 Blood culture for bacteria, including anaerobic screen Blood Culture [facility] Start: 07-14-2023 [facility] Start: 07-10-2023 Bacteria identified in Blood by Culture Blood Culture [facility] Start: 07-10-2023 Bacteria identified in Urine by Culture Urine Culture [facility] Start: 07-10-2023 Blood culture for bacteria, including anaerobic screen Blood Culture [facility] Start: 07-10-2023 Hospital admission [facility] Start: 02-26-2023 Hemoglobin A1c measurement Diabetes: Hemoglobin A1C [facility] Start: 12-31-2022 [facility] Start: 12-26-2022 Hospital admission [facility] Start: 12-26-2022 Referral to Senior Support Engineer [facility] Start: 12-26-2022 [facility] Start: 12-26-2022 [facility] Start: 08-03-2020 Creatinine monitoring Creatinine monitoring [place], [place] Start: 08-03-2020 Potassium monitoring Potassium monitoring [place], [place] Start: 08-02-2019 Annual Wellness Visit (AWV) Annual Wellness Visit (AWV) [place] Start: 06-28-2019 Influenza vaccination Flu vaccine (#1) [place], [place] Start: 2010 DEXA (modify frequency per FRAX score) DEXA (modify frequency per FRAX score) [place], [place] Start: 2010 Fall Risk Screening Fall Risk Screening [facility] [employer] [facility] Start: 2010 Pneumococcal 65+ years Vaccine (1 of 2 - PCV13) Pneumococcal 65+ years Vaccine (1 of 2 - PCV13) [place], [place] Start: 1995 Administration of varicella zoster vaccine Zoster (Shingles) Vaccine (1 of 2) [facility] [employer] [facility] Start: 1995 Breast cancer screen Breast cancer screen [place], [place] Start: 1995 Colon cancer screen colonoscopy Colon cancer screen colonoscopy [place], [place] Start: 1995 Shingles Vaccine (1 of 2) Shingles Vaccine (1 of 2) [place] Start: 1995 Zoster Vaccines (1 of 2) Zoster Vaccines (1 of 2) [facility] Start: 1967 DTaP/Tdap/Td Vaccines (1 - Tdap) DTaP/Tdap/Td Vaccines (1 - Tdap) [facility] Start: 1964 DTaP,Tdap and Td Vaccines (1 - Tdap) DTaP,Tdap and Td Vaccines (1 - Tdap) [facility] Start: 1964 DTaP/Tdap/Td vaccine (1 - Tdap) DTaP/Tdap/Td vaccine (1 - Tdap) [place], [place] Start: 1964 Urine screening for protein Diabetes: Urine Protein Screening [facility] Start: 1963 Adult BMI Follow Up Plan Adult BMI Follow Up Plan [facility] Start: 1963 Diabetes mellitus screening Diabetes Screening [facility] Start: 1963 Hepatitis C screening Hepatitis C Screening [facility] Start: 1955 Glaucoma screening Diabetes: Retinopathy Screening [facility] Start: 1955 Lipid screen Lipid screen [place], [place] Start: 1945 Creatinine measurement Creatinine Level [facility] Start: 1945 Hepatitis C screen Hepatitis C screen [place], [place] Start: 1945 Lipid panel Lipid Panel [facility] Start: 1945 Medicare Annual Wellness Visit [facility] Start: 1945 Potassium measurement Potassium Level [facility] Start: 1945 Tobacco Counseling Tobacco Counseling [facility] Anion gap measurement [facility] Basophils [#/volume] in Blood by Automated count [facility] Basophils/100 leukoc ytes in Blood by Automated count [facility] Eosinophils [#/volum e] in Blood [facility] Eosinophils/100 leukocytes in Blood by Automated count [facility] Erythrocyte distribu tion width [Ratio] by Automated count [facility] Erythrocytes [#/volu me] in Blood [facility] Hematocrit [Volume Fraction] of Blood [facility] Hemoglobin [Mass/vol ume] in Blood [facility] Initiate Oxygen Ther apy Protocol Initiate Oxygen Therapy Protocol Respiratory Care Routine Daily until discontinued starting 08/02/2019 [place] Comment on above: Daily until discontinued starting 2018 Leukocytes [#/volume ] corrected for nucleated erythrocytes in Blood by Automated coun [facility] Leukocytes [#/volume ] in Blood [facility] Lymphocytes [#/volum e] in Blood by Automated count [facility] Lymphocytes/100 leukocytes in Blood by Automated count [facility] MCH [Entitic mass] b y Automated count [facility] MCHC [Mass/volume] b y Automated count [facility] MCV [Entitic volume] by Automated count [facility] Monocytes [#/volume] in Blood by Automated count [facility] Monocytes/100 leukoc ytes in Blood by Automated count [facility] Neutrophils [#/volum e] in Blood by Automated count [facility] Neutrophils/100 leukocytes in Blood by Automated count [facility] Nucleated erythrocyt es [Presence] in Blood by Automated count [facility] Patient Education [facility] Work Phone: Patient referral [facility] Work Phone: Platelet mean volume [Entitic volume] in Blood by Automated count [facility] Platelets [#/volume] in Blood [facility] End: 08-02-2019 PREVIOUS SPECIMEN PREVIOUS SPECIMEN Lab Routine Once for 1 Occurrences starting 08/02/2019 until 08/02/2019 [facility] on above: Once for 1 Occurrences starting 08/02/20 19 until 08/02/2019 PREVIOUS SPECIMEN PREVIOUS SPECI MEN Lab Routine 08/02/2019 9:43 AM EDT [facility] Urinalysis complete panel - Urine Urinalysis with microscopic Lab Routine Urinary tract bacterial infections Stage 3a chronic kidney disease (HCC) (CMS/HCC) Ordered: 12/09/2023 [facility] Comment on above: Ordered: 12/09/2023 End: 01-27-2024 US Heart Transthoracic [facility] Service Area Work Phone: Comment on above: Once for 1 Occurrences starting 01/27/20 24 until 01/27/2024 Immunizations Immunization Date Immunization Notes Care Provider Napoleon garibay 09-02-2023 Influenza, High-dose , Quadrivalent Tony-Ginger [facility] 01-07-2023 SARS-COV-2 (COVID-19 ) vaccine, mRNA, spike protein, LNP, bivalent, preservative free, 30 mcg/0.3 mL dose, monserrat-sucrose formulation Gustavo Salas DO Work Phone: [facility] 12-31-2022 tuberculin skin test ; purified protein derivative solution, intradermal -Ginger [facility] 07-30-2022 influenza, high dose seasonal, preservative-free Ta-Ginger [facility] 07-30-2022 Influenza, High-dose Seasonal, Quadrivalent, Preservative Free Gustavo Salas DO Work Phone: [facility] 06-08-2021 pneumococcal polysaccharide vaccine, [address] [facility] 03-09-2021 COVID-19 Moderna Tanya Cesar Other [email or web address] Other 02-10-2021 COVID-19 Moderna Tanya Cesar Other [email or web address] Other 11-07-2020 influenza, high dose seasonal, preservative-free -Ginger [facility] 11-07-2020 influenza, seasonal, injectable Jenna Engle MD Work Phone: [facility] Work Phone: 08-04-2020 Seasonal trivalent influenza vaccine, adjuvanted, preservative free [facility] 07-14-2018 influenza, high dose seasonal, preservative-free Jorge A Renetta Other [email or web address] Other 07-14-2018 influenza virus vaccine, unspecified formulation DO Gustavo Salas Work Phone: [facility] 07-13-2018 Influenza, High-dose , Quadrivalent Ta-Ginger [facility] 08-02-2017 influenza, high dose seasonal, preservative-free Jorge A Renetta Other [email or web address] Other 08-02-2017 influenza virus vaccine, unspecified formulation DO Gustavo Salas Work Phone: [facility] 08-01-2017 Influenza, High-dose , Quadrivalent Ta-Ginger [facility] 07-26-2016 pneumococcal conjuga te vaccine, 13 valent Jorge A Renetta Other [email or web address] Other 07-26-2016 influenza, high dose seasonal, preservative-free Jorge A Renetta Other [email or web address] Other 07-26-2016 influenza virus vaccine, unspecified formulation DO Gustavo Salas Work Phone: [facility] 07-25-2016 Influenza, High-dose , Quadrivalent Ta-Ginger Cuffie [facility] 08-23-2015 influenza, high dose seasonal, preservative-free Jorge A Renetta Other [email or web address] Other 08-23-2015 influenza virus vaccine, unspecified formulation DO Gustavo Salas Work Phone: [facility] 08-22-2015 Influenza, High-dose , Quadrivalent Ta-Ginger Cuffie [facility] 10-28-2014 pneumococcal polysaccharide vaccine, 23 valent Jenna Engle MD Work Phone: [facility] Work Phone: 07-26-2014 influenza, seasonal, injectable Ta-Ginger Cuffie [facility] 07-08-2014 influenza, injectabl e, quadrivalent, contains preservative Jorge A Renetta Other [facility] 09-28-2013 influenza, injectabl e, quadrivalent, contains preservative Jorge A Renetta Other [facility] 12-04-2010 pneumococcal conjuga te vaccine, 7 valent Jorge A Renetta Other [email or web address] Other 12-04-2010 pneumococcal Conjuga te, unspecified formulation DO Gustavo Slaas Work Phone: [facility] Payers Date Payer Category Payer Medicaid [id number] 2024 Unknown [id number] 2024 Self-pay [id number] 2023 Private Health Insurance [employer] DUAL COMPLETE [employer]UAL [employer]PLETE [id number] 2023-Present [address] [address] [place] [address] [id number] .[id number] 2022 Medicare [id number]. 1.13.424.2 .7.3.998851.315 2021 Medicaid [id number]. 1.13.424.2 .7.3.980854.315 2018 Medicare [id number] 2017 Private Health Insurance [id number] 2014 Medicaid [id number] 2014 Medicaid MEDICAID [facility] DEPT OF JOB xxxxxxxxxxxx 2014-Present [phone] [address] [place] [address] xxxxxxxxxxxx 1.2.840.061934.1.13.239.2 .[id number] 2014 Medicare [id number] 2014 Medicare MEDICARE MEDICAR E PART A AND B xxxxxxxxxxx 2014-Present [phone] [address] [address] [place] [address] xxxxxxxxxxx 1.2.840.056148.1.13.239.2 .7.3.729300.315 1945 Unknown [id number] 2.16.840.1.794380.3.579.2 .175 1945 Unknown [id number] 2.16.840.1.241217.3.579.2 .356 1945 Unknown [id number] 2.16.840.1.034439.3.579.2 .356 1945 Unknown [id number] 2.16.840.1.236725.3.579.2 .593 1945 Unknown [id number] 2.16.840.1.703192.3.579.2 .1246 1945 Unknown [id number] 2.16.840.1.850322.3.579.2 .1244 1945 Unknown [id number] 2.16.840.1.722606.3.579.2 .1244 1945 Unknown [id number] 2.16.840.1.033549.3.579.2 .727 1945 Unknown [id number] 2.16.840.1.358144.3.579.2 .727 1945 Unknown [id number] 2.16.840.1.724064.3.579.2 .1286 1945 Unknown [id number] 2.16.840.1.577055.3.579.2 .1286 1945 Unknown [id number] 2.16.840.1.211784.3.579.2 .1286 1945 Unknown [id number] 2.16.840.1.716807.3.579.2 .1286 1945 Unknown [id number] 2.16.840.1.402635.3.579.2 .1286 1945 Unknown [id number] 2.16.840.1.027065.3.579.2 .1286 1945 Unknown [id number] 2.16.840.1.189672.3.579.2 .1286 1945 Unknown [id number] 2.16.840.1.057046.3.579.2 .1286 1945 Unknown [id number] 2.16.840.1.664791.3.579.2 .1286 1945 Unknown [id number] 2.16.840.1.317534.3.579.2 .1286 1945 Unknown [id number] 2.16.840.1.966663.3.579.2 .1286 1945 Unknown [id number] 2.16.840.1.428264.3.579.2 .1286 1945 Unknown [id number] 2.16.840.1.811179.3.579.2 .1285 1945 Unknown [id number] 2.16.840.1.398447.3.579.2 .128 1945 Unknown [id number] 2.16.840.1.466881.3.579.2 .1285 1945 Unknown [id number] 2.16.840.1.890887.3.579.2 .128 1945 Unknown [id number] 2.16.840.1.527712.3.579.2 .1285 1945 Unknown [id number] 2.16.840.1.886729.3.579.2 .1286 1945 Unknown [id number] 2.16.840.1.651406.3.579.2 .128 1945 Unknown [id number] 2.16.840.1.959767.3.579.2 .1286 1945 Unknown [id number] 2.16.840.1.310556.3.579.2 .1285 1945 Unknown [id number] 2.16.840.1.750269.3.579.2 .128 1945 Unknown [id number] 2.16.840.1.198174.3.579.2 .1285 1945 Unknown [id number] 2.16.840.1.583561.3.579.2 .1285 1945 Unknown [id number] 2.16.840.1.305773.3.579.2 .1285 1945 Unknown [id number] 2.16.840.1.393832.3.579.2 .1285 1945 Unknown [id number] 2.16.840.1.729145.3.579.2 .1285 1945 Unknown [id number] 2.16.840.1.768277.3.579.2 .1285 1945 Unknown [id number] 2.16.840.1.241139.3.579.2 .1285 1945 Unknown [id number] 2.16.840.1.908482.3.579.2 .1285 1945 Unknown [id number] 2.16.840.1.204116.3.579.2 .1285 1945 Unknown [id number] 2.16.840.1.706554.3.579.2 .1285 1945 Unknown [id number] 2.16.840.1.412345.3.579.2 .1285 1945 Unknown [id number] 2.16.840.1.446800.3.579.2 .1285 1945 Unknown [id number] 2.16.840.1.069171.3.579.2 .1285 1945 Unknown [id number] 2.16.840.1.181531.3.579.2 .1285 1945 Unknown [id number] 2.16.840.1.755753.3.579.2 .1285 1945 Unknown [id number] 2.16.840.1.521047.3.579.2 .1285 1945 Unknown [id number] 2.16.840.1.940141.3.579.2 .1259 1945 Unknown [id number] 2.16.840.1.069987.3.579.2 .1259 1945 Unknown [id number] 2.16.840.1.780614.3.579.2 .1259 1945 Unknown [id number] 2.16.840.1.361875.3.579.2 .1258 1945 Unknown [id number] 2.16.840.1.534320.3.579.2 .1259 1945 Unknown [id number] 2.16.840.1.872444.3.579.2 .1258 1945 Unknown [id number] 2.16.840.1.379579.3.579.2 .1259 1945 Unknown [id number] 2.16.840.1.144757.3.579.2 .1258 1945 Unknown [id number] 2.16.840.1.055322.3.579.2 .125 1945 Unknown [id number] 2.16.840.1.560852.3.579.2 .1258 1945 Unknown [id number] 2.16.840.1.842677.3.579.2 .1259 Medicare [id number] 2.16.840.1.113251.19 Unknown [facility] 2 [id number] Unknown [id number] 2.16.840.1.950596.3.579.2 .531 Unknown [id number] 2.16840.1.080735.3.579.2 .531 Social History Date Type Detail Facility Start: 06-23-2012 End: 02-14-2024 Tobacco smoking status NHIS Former smoker [facility] Start: 12-26-2022 End: 12-08-2011 History of tobacco use Current smoker [place], [place] End: 12-08-2011 History of tobacco use Cigarette Smoker [facility] [place], [place] Start: 06-23-2012 End: 02-10-2024 Alcohol intake No [facility] Start: 06-23-2012 Alcohol Comment stopped 20 years Tarah coleen [place], [place] Start: 1945 Sex Assigned At Not on file M anjali [place], [place] Start: 1945 Sex Assigned At Female F [facility] Start: 10-06-2023 End: 12-04-2023 Tobacco smoking status MOIS Smokes tobacco daily [facility] Start: 10-06-2023 End: 02-10-2024 Cigarettes smoked current (pack per day) - Reported 0.5 [facility] Start: 10-06-2023 End: 02-10-2024 Tobacco use and exposure Smokeless tobacco non-user [facility] Start: 10-18-2023 End: 02-10-2024 Alcohol intake Lifetime non-drinker (finding) [facility] How often to you hav e a drink containing alcohol? Never [facility] How many standard drinks containing alcohol do you have on a typical day? Patient does not drink [facility] History of tobacco use Passive smoker [facility] Start: 08-23-2023 Tobacco Comment [facility] [noted 02/25 05/19] : Former smoker ; quit date 01/26/2022 [facility] Start: 03-23-2023 Alcohol Comment caffeine 2-3 c ups/day; pepsi 2 cans/day [facility] Start: 12-27-2023 End: 02-10-2024 Exposure to SARS-CoV-2 (event) Not sure [facility] Start: 01-30-2024 Tobacco smoking status Light t obacco smoker (finding) [facility] Ryann Start: 02-10-2024 Tobacco smoking stat us NHIS Occasional tobacco smoker [facility] Work Phone: Medical Equipment Procedure Code Equipment Code Equipment Origin al Text Equipment Identifier Dates CL CLOSURE DEVIC E EXOSEAL [id number] FDA Start: 04-29-2019 CL STENT KELLY 2.75 X 23 FDA Start: 04-29-2019 Orthopaedic bone screw, non-bioabsorbable, non-sterile ()[id number] FDA Start: 09-02-2020 Femur nail, sterile ()[id number] FDA Start: 09-02-2020 Spiral blade ()[id number] FDA Start: 09-02-2020 CL CLOSURE DEVIC E [...] of progress towards goal: lists sent to [facility] Functional Status Date Assessment Result Facility 02-17-2024 Functional status 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 Baseline [facility] Work Phone: 02-14-2024 Functional status Patient Not at Baseline [facility] Work Phone: 01-30-2024 Functional Status N/A [facility] 08-20-2023 Functional status Patient at Baseline [facility] Work Phone: 07-14-2023 Functional status Patient at Baseline [facility] Work Phone: 12-31-2022 Functional status Patient Not at Baseline [facility] Work Phone: Mental Status Date Assessment Result Facility 02-17-2024 Cognitive function Cognitive Sta tus Patient at Baseline [facility] Work Phone: 02-14-2024 Cognitive function Cognitive Sta tus Patient at Baseline [facility] Work Phone: 08-20-2023 Cognitive function Cognitive Sta tus Patient at Baseline [facility] Work Phone: 07-14-2023 Cognitive function Cognitive Sta tus Patient at Baseline [facility] Work Phone: 12-31-2022 Cognitive function Cognitive Sta tus Patient at Baseline [facility] Work Phone: Clinical Notes 01-18-2022 to [...] Dima Colón MD on 02/19/2024 4:52 PM [facility] 02-16-2024 Progress note Note Date/Time February 16, 2024 12:07pm [place] [address] Hospitalist Progress Note Signed Patient: Gera Perdue MR#: [id number] : 1945 Acct:[id number] Age/Sex: 78 / F Adm Date: 4 Loc: Room: [address] [place] [address] Type: ADM IN Attending Dr: Lucho Grullon [...] <Electronically signed by Lucho Grullon MD> 02/16/241911 [facility] Work Phone: 1(458) 686-162404-21-2024 Progress note Author Lucho Grullon [facility] February 16, 2024 12:09am Note Date/Time February 15, 2024 3:0 4pm [facility] [address] [place] [address] Hospitalist Progress Note Signed Patient: Gera Perdue MR#: [id number] : 1945 Acct:[id number] Age/Sex: 78 / F Adm Date: 4 Loc: Room: [address] [place] [address] Type: ADM IN Attending Dr: Lucho Grullon [...] Plan Documented By: Lucho Grullon MD 02/15/24 2630 Signed By: <Electronically signed by Lucho Grullon MD> 02/16/24 000 [facility] Work Phone: 1(641) 180-968904-20-2024 History and physical note Author Lucho Grullon [facility] February 15, 2024 12:58am Note Date/Time February 14, 2024 5:5 9pm [facility] [address] [place] [address] Hospitalist H&P Signed Patient: Gera Perdue MR#: [id number] : 1945 Acct:[id number] Age/Sex: 78 / F Adm Date: 4 Loc: 3T Room: [address] [place] [address] Type: ADM IN Attending Dr: Lucho Grullon [...] care Discussed with:?the medical team, the [facility] Medical History Intertrochanteric fracture of left [...] % (Auto) 23.7 % (.) 02/14/24 11:39 [place] % (Auto) 12.3 % (.) 02/14/24 11:39 Eos % (Auto) 0.4 % (.) 02/14/24 11:39 Baso % (Auto) 0.9 % (.) 02/14/24 11:39 Nucleat RBC Rel Count 0.1 /100 WBC (0-0.5) 02/14/24 11:39 Neut # (Auto) 8.5 x10E3/uL (1.8-7.7) H 02/14/24 11:39 Lymph # (Auto) 3.2 x10E3/uL (1.00-4.8) 02/14/24 11:39 [place] # (Auto) 1.7 x10E3/uL (0.0-0.8) H 02/14/24 [...] pH 5.5 (5.0-9.0) 02/14/24 11:50 Ur Specific [place] 1.024 (1.001-1.030) 02/14/24 11:50 Urine Protein 30 [...] signed by Lucho Grullon MD> 02/15/24 0058 [facility] Work Phone: 1(947) 197-184604-15-2024 History of Present illness Narrative* Jenna Engle [...] stage IIIb 5. Patient was transferred to [facility] from [facility] for nephrology consultation for ARTURO on CKD along with hyperkalemia. This occurred in September 2023. Prior to that she had been living [facility], and has been in and out of [facility] on multiple occasions, being treated for urinary [...] smoker 01/06/2024 Frequent UTI 01/06/2024 Angina pectoris ([facility]) 12/04/2023 Coronary artery disease 12/04/2023 Dyspnea 12/04/2023 Essential hypertension 12/04/2023 Hyperlipidemia, mixed 12/04/2023 Assessment: 1. Shortness of breath Follow Up In Cardiology 2. 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 3. History of [...] further questions arise, Sincerely, Jenna Engle MD [facility] Follow up : elisan Janetibe Attestation By [...] exam, discussion and plan. [facility] Work Phone: 1(788) 858-927504-15-2024 Instructions* Patient Instructions* Hoa Buck LPN - [...] ordered as needed only [facility] Work Phone: 1(408) 449-821304-04-2024 Hospital Discharge instructions Patient Education 01/30/2024 14:50:25 [...] Treatment for this condition includes: Antibiotic medicine. Naoh-oxl-lzkddkd medicines to treat discomfort. Drinking enough water [...] Follow these instructions at home: Medicines Take dhrt-ubk-ywhmzzr and prescription medicines only as told by [...] provider. Document Revised: 05/26/2021 Document Reviewed: 05/26/2021 [employer]) Patient Education 2022 [employer]. 01/30/2024 14:50:24 Urinary Incontinence Urinary Incontinence Urinary [...] nerve stimulation). ?For women, using a medical record specialist to prevent urine leaks. This is a [...] right after experiencing incontinence. General instructions Take oksm-oum-spswfsh and prescription medicines only as told by [...] important. Where to find more information National [place] of Diabetes and Digestive and Kidney Diseases: www.niddk.nih.gov [employer] [employer]: www.urologyhealth.org Contact a health care [...] provider. Document Revised: 05/19/2021 Document Reviewed: 05/19/2021 [employer]) Patient Education 2022 [employer]. 01/30/2024 14:50:21 Overactive Bladder, Adult Overactive Bladder, [...] your health care provider. General instructions Take ufcy-mmm-zsvyjuj and prescription medicines only as told by [...] provider. Document Revised: 07/03/2021 Document Reviewed: 07/03/2021 [employer]) Patient Education 2022 [employer] Follow Up Care 01/13/2024 09:25:34 With:CHIP Ponce APRN, Renae Delaney, JYOTI, URL Address: When: Unknown Comments:pending cysto/UD [facility] Ryann 04-04-2024 Evaluation + Plan note Diagnostic Tests Pending * Urine Culture 01/30/[address]11-2024 History of Present illness Narrative* Jenna [...] have been reviewed. Reviewed extensive records from [facility].. Past Medical History: 1. Longstanding nicotine dependence with COPD, currently hypoxemic respiratory failure on oxygen. 2. Primary hypertension 3. Obstructive sleep apnea 4. Chronic kidney disease stage IIIb 5. Patient was transferred to [facility] from [facility] for nephrology consultation for ARTURO on CKD along with hyperkalemia. This occurred in September 2023. Prior to that she had been living [facility], and has been in and out of [facility] on multiple occasions, being treated for urinary [...] 2 views; Future 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 Stage 3b chronic kidney disease (CMS/HCC) Microcytic anemia History of PTCA Essential hypertension Hyperlipidemia, mixed Obstructive sleep apnea syndrome Chronic respiratory failure with hypoxia (CMS/HCC) Frequent UTI BMI 32.0-32.9,adult Cough with expectoration Current smoker 1. Shortness of breath 2. 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 3. Stage 3b chronic kidney disease (CMS/HCC) 4. Microcytic anemia 5. History of PTCA 6. Essential hypertension 7. Hyperlipidemia, mixed 8. Obstructive sleep apnea syndrome 9. Chronic respiratory failure with hypoxia (CMS/HCC) 10. Frequent UTI 11. BMI 32.0-32.9,adult 12. Cough with expectoration 13. Current smoker Patient with multiple comorbidities, atherosclerotic minto vessel coronary artery disease and riskfactors, recent [...] to smoke. She has history of atherosclerotic minto vessel coronary artery disease with intolerance to [...] further questions arise, Sincerely, Jenna Engle MD [facility] Scribe Attestation By signing my name below, [...] exam, discussion and plan. documented in this [facility] Work Phone: 1(863) 870-641903-11-2024 Instructions* Patient Instructions* Yaquelin Garcia LPN - [...] two weeks then stop documented in this [facility] Work Phone: 1(875) 164-830502-12-2024 History of Present illness Narrative* Lilliam Cheek NP - 12/09/2023 11:00 AM EST Subjective Patient ID: Gera Perdue (: 1945) is a 78 y.o. female who presents for Hospital Follow-up. HPI Pt presents and daughter present for hospital follow up. Pt was admitted to [facility] in early September for ARTURO, UTI, and sepsis. Patient was then discharged to the [facility] in [place]. Pt was released from the [facility] on 11/28/2023. She is supposed to be getting HH however the company they were r eferred to is short staffed so her family has been caring for her. Today patient has complaints of shortness of breath and bilateral leg swelling. Pt denies urinary symptoms. She is currently finishing her Levaquin as she was started on at the [facility]. Pt did also receive weeks of Daptomycin [...] TABLET BY MOUTH EVERY DAY nystatin (Mycostatin) 465491 UNIT/GM powder APPLY TOPICALLY TO THE AFFECTED [...] related osteoporosis (CMS/HCC) Atherosclerotic heart disease of minto coronary artery without angina pectoris (CMS/HCC) Carotid [...] O:KLEPNE Isolated TBH CULTURE URINE Urine Culture [place] Count TBH CULTURE URINE >100,000 CFU/ml TBH [...] List Items Addressed This Visit Essential hypertension ([facility]) Relevant Orders CBC and differential Comprehensive metabolic panel Hyperlipidemia ([facility]) Stage 3a chronic kidney disease (HCC) ([facility]) Relevant Orders Urinalysis with microscopic Magnesium SOB (shortness of breath) - Primary Hospital discharge follow-up Other Visit Diagnoses Wheezing Urinary tract bacterial infections Relevant Orders Urinalysis with microscopic Urine culture (clean catch) Sepsis with acute renal failure without septic shock, due to unspecified organism, unspecified acute renal failure type ([facility]) Medication management Patient presents today with daughter for hospital/group home follow up. Patient was admitted to [facility] (all hospital records are in Care Everywhere and were reviewed prior to and during appt). With UTI, ARTURO and sepsis. She did receive IV antibiotics through a PICC line which has since been removed. She was discharged to the [facility] for group home for three weeks and was discharged on11/28/2023. Patient is currently finishing oral Levaquin. Patient denies urnary symptoms or fevers today. Patient does have complaints of leg swelling and shortness of breath. Assessment does consist of wheezing and rhonchi. Daughter did bring a large bag with multiple medications that needed reviewed and sorted out. This PHOTO MACHINE OPERATOR did review each medication and compared it to the discharge summary from the [facility]. Each medication was discussed and placed in proper labeled bags to assist in the proper set up at home. Patient does have an order for HH however the company does not have enough staff. I am going to send an order to [facility] as this patient needs and requires a HH nurse, aide, social security specialist and PT. CCM will also be consulted. Patient does discuss concerns of a prolapsed bladder being apossible cause of the UTI's which this does need assessed in a timely manner. Referral sent to [facility].Advised daughter to call office within 5-7 days if she has not heard anything to address the above r eferrals. Patient is currently supposed to be taking Prednisone 20 mg a day which she has not been doing. This was given at the [facility]. Due to the wheezing and shortness of breath I advised they to 40 mg a day for 3 days and finish the rest of the 20 mg a day until finished. Patient and daughter instructed to call office with any questions or to seek ER if symptoms worsen. Patient does have an infectious disease follow up on 12/02/2023 and insurance premium auditor on 01/06/2024. Patient will return to the [...] breathing machine I will address this with [facility]. Health Maintenance Topic Date Due Diabetes: [...] follow up with labs. documented in this encounterCass Medical [id number] Miscellaneous Notes* Telephone Encounter - Yvonne Kelly RN - 11/12/2023 2:42 PM EST Called Alethea-Patient's daughter back after r/s hospital followup with Dr Galicia for 11-22-2023. Our office does not participate with her Mom's insurance-[facility] [employer]. Appt cancelled. Alethea to call her Mom's [employer] Dual Complete Customer Service to see what Ellen GUZMAN is on her plan. Alethea to call office back so we can send a referral. documented in [facility]24 Telephone encounter Note* Telephone Encounter - Yvonne Kelly RN - 11/12/2023 2:42 PM EST Called Alethea-Patient's daughter back after r/s hospital followup with Dr Galicia for 11-22-2023. Our office does not participate with her Mom's insurance-[facility] Dual Complete. Appt cancelled. Alethea to call her Mom's [facility] [employer] Complete Customer Service to see what Ortho is on her plan. Alethea to call office back so we can send a referral. [facility] [employer] [id number] Miscellaneous Notes* Telephone Encounter - Nirmala Shirley - 11/12/2023 10:18 AM EST ALETHEA IS CALLING SINCE PT TESTED POSITIVE FOR COVID. PLEASE CALL AND ADVISE ABOUT THE HOSPITAL DISCHARGE FOLLOW UP SHE CAN BE REACHED AT [phone] * Telephone Encounter - Yvonne Kelly RN - 11/12/2023 10:18 AM EST Patient is in isolation until 11-17-2023. Appt r/s with Dr Galicia for 10:30a documented in this encounterWexner [facility] Center01-16-2024 Telephone encounter Note* Telephone Encounter - Nirmala Shriley - 11/12/2023 10:18 AM EST ALETHEA IS CALLING SINCE PT TESTED POSITIVE FOR COVID. PLEASE CALL AND ADVISE ABOUT THE HOSPITAL DISCHARGE FOLLOW UP SHE CAN BE REACHED AT [phone] [facility]01[facility] Telephone encounter Note* Telephone Encounter - Yvonne Kelly RN - 11/12/2023 10:18 AM EST Patient is in isolation until 11-17-2023. Appt r/s with Dr Galicia for 10:30a [facility] Viva la [id number] Miscellaneous Notes* Telephone Encounter - Avtar Person Jordan - 10/30/2023 12:37 PM EST New patient/Hospital Follow Up DX: Sleep Apnea Scheduled 01/10/24 w/ Dr. Gall[facility] Paperwork sent: 10/30/23. Please send paperwork to: MARINAANGIE @ [place] [address] Ins verified (OON notification); NO WORKMAN'S COMP; NO ACCIDENT documented in this encounterWexner Medical Center01-03-2024 Telephone encounter Note* Telephone Encounter - Amrit Person Jordan - 10/30/2023 12:37 PM EST New patient/Hospital Follow Up DX: Sleep Apnea Scheduled 01/10/24 w/ Dr. Gallagher [facility] Paperwork sent: 10/30/23. Please send paperwork to: SR[employer]AR @ [place] [address] Ins verified (OON notification); NO WORKMAN'S COMP; NO ACCIDENT [facility] [employer] [id number] Discharge summary Author Jesus Alberto Aquino [facility] August 20, 2023 1:32pm Note Date/Time August 20, 2023 1 :32pm [facility] [address] [place] [address] Discharge Summary Signed Patient: Gera Perdue MR#: [id number] : 1945 Acct:[id number] Age/Sex: 77 / F Adm Date: 3 Loc: Room: [address] [place] [address]: Jesus Alberto Aquino MD Copies [...] 08:00 Discharge Plan Discharge Plan Patient Disposition: Shelter Facility Activity: No Activity Restriction Diet: Regular [...] for 3 days Documented By: Jesus Alberto qAuino MD 08/20/23 1329 Signed By: <Electronically signed by Jesus Alberto Aquino MD> 08/20/23 1332 [facility] Work Phone: 1(136) 169-616610-23-2023 Progress note Author Jesus Alberto Aquino [facility] August 19, 2023 2:43pm Note Date/Time August 19, 2023 2 :43pm [facility] [address] [place] [address] Hospitalist Progress Note Signed Patient: Gera Perdue MR#: [id number] : 1945 Acct:[id number] Age/Sex: 77 / F Adm Date: 3 Loc: Room: [address] [place] [address] Type: ADM IN Attending Dr: Jesus Alberto [...] signed by Jesus Alberto Aquino MD> 08/19/231442 [facility] Work Phone: 1([phone]) 484-823610-22-2023 Progress note Author Jesus Alberto Aquino [facility] August 18, 2023 1:49pm Note Date/Time August 18, 2023 1 :49pm [facility] [address] [place] [address] Hospitalist Progress Note Signed Patient: Gera Perdue MR#: [id number] : 1945 Acct:[id number] Age/Sex: 77 / F Adm Date: 3 Loc: Room: [address] [place] [address] Type: ADM IN Attending Dr: Jesus Alberto [...] <Electronically signed by Jesus Alberto Aquino MD> 08/18/231348 [facility] Work Phone: 1([phone] 149-746710-21-2023 History and physical note Author Jesus Alberto Aquino [facility] August 17, 2023 7:50pm Note Date/Time August 17, 2023 7 :50pm [facility] [address] [place] [address] Hospitalist H&P Signed Patient: Gera Perdue MR#: [id number] : 1945 Acct:[id number] Age/Sex: 77 / F Adm Date: 3 Loc: Room: [address] [place] [address] Type: ADM IN Attending Dr: Jesus Alberto [...] apnea Nephrolithiasis Pulm hypertension GERD Hypertension Dyslipidemia [facility] Medical History (Updated 08/17/23 @ 19:01 [...] % (Auto) 7.8 % (.) 08/17/23 16:05 [place] % (Auto) 5.5 % (.) 08/17/23 16:05 Eos % (Auto) 0.0 % (.) 08/17/23 16:05 Baso % (Auto) 0.2 % (.) 08/17/23 16:05 Nucleat RBC Rel Count 0.1 /100 WBC (0-0.5) 08/17/23 16:05 Neut # (Auto) 25.4 x10E3/uL (1.8-7.7) H 08/17/23 16:05 Lymph # (Auto) 2.3 x10E3/uL (1.00-4.8) 08/17/23 16:05 [place] # (Auto) 1.6 x10E3/uL (0.0-0.8) H 08/17/23 [...] signed by Jesus Alberto Aquino MD> 08/17/[address] [place] [address] Work Phone: 1(454) 252-392810-21-2023 History and physical note Author Jesus Alberto Aquino [facility] August 17, 2023 7:50pm Note Date/Time August 17, 2023 7 :50pm [facility] [address] [place] [address] Hospitalist H&P Signed Patient: Gera Perdue MR#: [id number] : 1945 Acct:[id number] Age/Sex: 77 / F Adm Date: 3 Loc: Room: [address] [place] [address] Type: ADM IN Attending Dr: Jesus Alberto [...] apnea Nephrolithiasis Pulm hypertension GERD Hypertension Dyslipidemia [facility] Medical History (Updated 08/17/23 @ 19:01 [...] % (Auto) 7.8 % (.) 08/17/23 16:05 [place] % (Auto) 5.5 % (.) 08/17/23 16:05 Eos % (Auto) 0.0 % (.) 08/17/23 16:05 Baso % (Auto) 0.2 % (.) 08/17/23 16:05 Nucleat RBC Rel Count 0.1 /100 WBC (0-0.5) 08/17/23 16:05 Neut # (Auto) 25.4 x10E3/uL (1.8-7.7) H 08/17/23 16:05 Lymph # (Auto) 2.3 x10E3/uL (1.00-4.8) 08/17/23 16:05 [place] # (Auto) 1.6 x10E3/uL (0.0-0.8) H 08/17/23 [...] by Jesus Alberto Aquino MD> 08/17/23 1950 [facility] Work Phone: [phone] 838-241909-17-2023 Discharge summary Author Jolanta Mckenzie [facility] July 14, 2023 11:16am Note Date/Time July 14, 2023 11:16am [facility] [address] [place] [address] Discharge Summary Signed Patient: Gera Perdue MR#: [id number] : 1945 Acct:[id number] Age/Sex: 77 / F Adm Date: 3 Loc: Room: [address] [place] [address]: Jolanta Mckenzie MD Copies to: [...] breathing. Physical therapy wasconsulted with recommendation for group home facility which patient is refusing understanding the [...] % (Auto) 69.9, Lymph % (Auto) 22.1, [place] % (Auto) 7.3, Eos % (Auto) 0.4, Baso % (Auto) 0.3, Nucleat RBC Rel Count 0.1, Neut # (Auto) 13.5 H, Lymph # (Auto) 4.3, [place] # (Auto) 1.4 H, Eos # (Auto) [...] <Electronically signed by Jolanta Mckenzie MD> 07/14/[address] [place] [address] Ctr Work Phone: 1([phone]) 437-793309-16-2023 Progress note Author Jolanta Mckenzie [facility] July 13, 2023 1:59pm Note Date/Time July 13, 2023 10:40am [facility] [address] [place] [address] Hospitalist Progress Note Signed with Ling Patient: Gera Perdue MR#: [id number] : 1945 Acct:[id number] Age/Sex: 77 / F Adm Date: 3 Loc: Room: [address] [place] [address] Type: ADM IN Attending Dr: Jolanta Mckenzie [...] but patient also on steroid. Discussed regarding group home facility she has not decided yet. Give 1 dose of IV Lasix and resume oral Lasix from tomorrow. Addendum Documented By: Jolanta Mckenzie MD 07/13/23 6928 Addendum Signed By: <Electronically signed by Jolanta Mckenzie MD> 07/13/23 0229 Date of Service: 07/13/2023 Subjective Subjective Narrative: [...] signed by Jolanta Mckenzie MD> 07/13/23 1356 [facility] Work Phone: [phone]) 531-609909-15-2023 Progress note Author Jolanta Mckenzie [facility] July 12, 2023 3:00pm Note Date/Time July 12, 2023 2:16pm [facility] [address] [place] [address] Hospitalist Progress Note Signed with Addenda Patient: Gera Perdue MR#: [id number] : 1945 Acct:[id number] Age/Sex: 77 / F Adm Date: 3 Loc: Room: [address] [place] [address] Type: ADM IN Attending Dr: Jolanta Mckenzie [...] and switch to oral prednisone. PT recommended group home facility which patient is refusing with plan [...] 1,000 Ml IV 07/09/24 13:59 75 mls/hr .[id number] JERILYN Administration Ceftriaxone Sodium 1 gm in [...] signed by Jolanta Mckenzie MD> 07/12/23 1457 [facility] Work Phone: [phone]) 642-810509-14-2023 Progress note Author Jolanta Mckenzie [facility] July 11, 2023 12:47pm Note Date/Time July 11, 2023 10:10am [facility] [address] [place] [address] Hospitalist Progress Note Signed with Ling Patient: Gera Perdue MR#: [id number] : 1945 Acct:[id number] Age/Sex: 77 / F Adm Date: 3 Loc: 3T Room: [address] [place] [address] Type: ADM IN Attending Dr: Jolanta Mckenzie [...] 1,000 Ml IV 07/09/24 13:59 75 mls/hr .[id number] JERILYN Administration Ceftriaxone Sodium 1 gm in [...] <Electronically signed by Jolanta Mckenzie MD> 07/11/23 3177 [facility] Work Phone: [phone]) 600-797509-13-2023 History and physical note Author Jolanta Mckenzie [facility] July 10, 2023 1:50pm Note Date/Time July 10, 2023 1:44pm [facility] [address] [place] [address] Hospitalist H&P Signed Patient: Gera Perdue MR#: [id number] : 1945 Acct:[id number] Age/Sex: 77 / F Adm Date: 3 Loc: Room: [address] [place] [address] Type: ADM IN Attending Dr: Jolanta Mckenzie [...] negative unless noted below or in HPI [facility] Medical History Arthritis COPD (chronic obstructive [...] % (Auto) 31.5 % (.) 07/10/23 08:44 [place] % (Auto) 6.5 % (.) 07/10/23 08:44 Eos % (Auto) 0.4 % (.) 07/10/23 08:44 Baso % (Auto) 0.2 % (.) 07/10/23 08:44 Nucleat RBC Rel Count 0.1 /100 WBC (0-0.5) 07/10/23 08:44 Neut # (Auto) 13.1 x10E3/uL (1.8-7.7) H 07/10/23 08:44 Lymph # (Auto) 6.7 x10E3/uL (1.00-4.8) H 07/10/23 08:44 [place] # (Auto) 1.4 x10E3/uL (0.0-0.8) H 07/10/23 [...] pH 8.5 (5.0-9.0) 07/10/23 08:44 Ur Specific [place] 1.022 (1.001-1.030) 07/10/23 08:44 Urine Protein 30 [...] signed by Jolanta Mckenzie MD> 07/10/23 1350 [facility] Work Phone: [phone] Discharge summary Author Jesus Alberto Aquino [facility] December 31, 2022 3:43pm Note Date/Time December 31, 2022 11:5 7am [facility] [address] [place] [address] Discharge Summary Signed Patient: Gera Perdue MR#: [id number] : 1945 Acct:[id number] Age/Sex: 77 / F Adm Date: 3 Loc: Room: [address] [place] [address]: Jesus Alberto Aquino MD Copies [...] complications occurred, and patient was discharged to group home facility in stable condition on December 31. [...] % (Auto) N/A, Lymph % (Auto) N/A, [place] % (Auto) N/A, Eos % (Auto) N/A, Baso % (Auto) N/A, Nucleat RBC Rel Count N/A, Neut # (Auto) N/A, Lymph # (Auto) N/A, [place] # (Auto) N/A, Eos # (Auto) N/A, [...] 09:23 Discharge Plan Discharge Plan Patient Disposition: Shelter Facility Activity: No Activity Restriction Diet: Regular [...] signed by Jesus Alberto Aquino MD> 12/31/22 1548 [facility] Work Phone: [phone]) 371-502103-05-2023 Progress note Author Carla Hagan [facility] December 30, 2022 9:53am Note Date/Time December 30, 2022 9:53 am [facility] [address] [place] [address] Hospitalist Progress Note Signed Patient: Gera Perdue MR#: [id number] : 1945 Acct:[id number] Age/Sex: 77 / F Adm Date: 3 Loc: 4 Room: 4B6260-7 Type: ADM IN Attending Dr: Carla Hagan [...] place, time and person. Morbidly obese HEENT: [place] conjunctiva and NL buccal mucosa Neck: Supple, [...] anemia Plan is to discharge patient to group home unit for short period of time for [...] signed by Carla Hagan MD> 12/30/22 0953 [facility] Work Phone: [phone]) [phone] Progress note Author Carla Hagan [facility] December 29, 2022 10:00am Note Date/Time December 29, 2022 10:0 0am [facility] [address] [place] [address] Hospitalist Progress Note Signed Patient: Gera Perdue MR#: [id number] : 1945 Acct:[id number] Age/Sex: 77 / F Adm Date: 3 Loc: 4N Room: [id number] Type: ADM IN Attending Dr: Carla Hagan [...] place, time and person. Morbidly obese HEENT: [place] conjunctiva and NL buccal mucosa Neck: Supple, [...] 12/29/22 0958 Signed By: <Electronically signed by Crala Hagan MD> 12/29/22 1000 [facility] Work Phone: [phone]) [phone] Progress note Author Carla Hagan [facility] December 28, 2022 11:14am Note Date/Time December 28, 2022 9:27 am [facility] [address] [place], [place] [address] Hospitalist Progress Note Signed Patient: Gera Perdue MR#: [id number] : 1945 Acct:[id number] Age/Sex: 77 / F Adm Date: 3 Loc: 4N Room: 4P9012-3 Type: ADM IN Attending Dr: Carla Hagan [...] any cardiac arrhythmia.? Patient will likely require group home facility on discharge. Patient is medically cleared for discharge pending placement approval. The patient would likely need to have additional work-up, investigation and therapeutic intervention but will be determined based on the clinical progression and follow-up test result Documented By: Carla Hagan MD 12/28/22 0918 Signed By: <Electronically signed by Carla Hagan MD> 12/28/22 1114 <Electronically signed by DO SEAN Armas> 12/28/22 1040 [facility] Work Phone: [phone]) 453-507803-02-2023 Progress note Author Carla Hagan [facility] December 27, 2022 12:40pm Note Date/Time December 27, 2022 9:25 am [facility] [address] [place] [address] Hospitalist Progress Note Signed Patient: Gera Perdue MR#: [id number] : 1945 Acct:[id number] Age/Sex: 77 / F Adm Date: 3 Loc: Room: [address] [place] [address] Type: ADM IN Attending Dr: Carla Hagan [...] 300 Mg Tab.Er.24h PO 12/27/23 08:59 QAM [facility] Calcium Carbonate 600 mg 12/27/22 09:00 Calcium Carbonate 500 Mg Tablet PO 12/27/23 08:59 DAILY [facility] Clopidogrel Bisulfate 75 mg 12/27/22 09:00 Clopidogrel Bisulfate 75 Mg Tablet PO 12/27/23 08:59 DAILY JERILNY Heparin Sodium (Porcine) 5,000 unit 12/27/22 06:00 12/27/22 06:14 Heparin 5,000 Unit/Ml Vial SUBCUT 12/27/23 05:59 5,000 unit Q8HR JERILYN Administration Hydromorphone HCl 0.5 mg 12/27/22 03:58 Hydromorphone 0.5 Mg/0.5 Ml Syringe IV-PUSH Q4H PRN Pain Scale 8 - 10 Lisinopril 5 mg 12/27/22 09:00 Lisinopril 5 Mg Tablet PO 12/27/23 08:59 DAILY [facility] Metoprolol Succinate 50 mg 12/27/22 09:00 Metoprolol Succinate 50 Mg Tab.Er.24h PO 12/27/23 08:59 DAILY [facility] Nicotine 1 each 12/27/22 00:30 12/27/22 00:48 Nicotine Patch 14 Mg/24hr 1 Each Patch.Td24 TRANSDERML 01/08/23 09:01 1 each DAILY [facility] Administration Nystatin 1 applic 12/27/22 00:30 12/27/22 00:48 Nystatin 100,000 Unit/Gram Powder 15 Gm Bottle TOPICAL 12/27/23 00:29 1 applic BID [facility] Administration Ondansetron HCl 4 mg 12/26/22 23:41 Ondansetron 4 Mg/2 Ml Vial IV-PUSH 12/26/23 23:40 Q8H PRN Nausea And Vomiting Pantoprazole Sodium 40 mg 12/27/22 09:00 Pantoprazole 40 Mg Tablet. PO 12/27/23 08:59 DAILY [facility] Paroxetine HCl 40 mg 12/27/22 09:00 Paroxetine 20 Mg Tablet PO 12/27/23 08:59 QAM [facility] Pregabalin 75 mg 12/27/22 09:00 Pregabalin 75 Mg Capsule PO 06/25/23 08:59 BID [facility] Sodium Chloride 0 ml 12/26/22 19:02 12/26/22 20:58 Sodium Chloride 0.9 % 10 Ml Syringe IV-PUSH 12/26/23 19:01 10 ml PRN PRN Administration Flush Sodium Chloride 0 ml 12/27/22 06:00 12/27/22 06:14 Sodium Chloride 0.9 % 10 Ml Syringe IV-PUSH 12/27/23 05:59 10 ml QSHIFT [facility] Administration Tramadol HCl 50 mg 12/26/22 23:41 12/27/22 06:14 Tramadol 50 Mg Tablet PO 06/24/23 23:40 50 mg Q6H PRN Administration Pain Scale 4 - 7 Triamcinolone Acetonide 1 applic 12/27/22 09:00 Triamcinolone 0.1% Cream 15 Gm Tube TOPICAL 12/27/23 08:59 BID [facility] Vitamin D 50 mcg 12/27/22 09:00 [...] any cardiac arrhythmia.? Patient will likely require group home facility on discharge. Documented By: Carla Hagan MD 12/27/22 0857 Signed By: <Electronically signed by Carla Hagan MD> 12/27/22 1240 <Electronically signed by DO SEAN Armas> 12/27/22 1132 [facility] Work Phone: 1([phone] History and physical note Author Jolanta Mckenzie [facility] December 27, 2022 12:32am Note Date/Time December 26, 2022 11:0 5pm [facility] [address] [place] [address] Hospitalist H&P Signed with Addenda Patient: Gera Perdue MR#: [id number] : 1945 Acct:[id number] Age/Sex: 77 / F Adm Date: 3 Loc: 4N Room: [address] [place] [address] Type: ADM IN Attending Dr: Jolanta Mckenzie [...] any cardiac arrhythmia. Patient will likely require group home facility on discharge. Addendum Documented By: Jolanta [...] % (Auto) 24.8 % (.) 12/26/22 19:36 [place] % (Auto) 10.1 % (.) 12/26/22 19:36 Eos % (Auto) 1.1 % (.) 12/26/22 19:36 Baso % (Auto) 0.5 % (.) 12/26/22 19:36 Nucleat RBC Rel Count 0.1 /100 WBC (0-0.5) 12/26/22 19:36 Neut # (Auto) 7.6 x10E3/uL (1.8-7.7) 12/26/22 19:36 Lymph # (Auto) 3.0 x10E3/uL (1.00-4.8) 12/26/22 19:36 [place] # (Auto) 1.2 x10E3/uL (0.0-0.8) H 12/26/22 [...] signed by MD SEAN Mann> 12/27/22 0022 [facility] Work Phone: [phone] NoteHISTORY: Bone density screening. COMPARISON: 08/03/2020 PROCEDURE: [...] and signed by Edgar Hooper on 05/01/2022 [facility]* Encounter Date Diagnosis Assessment Notes Treatment Notes Treatment Clinical Notes Mar, Major depressive disorder, recurrent severe without psychotic features (ICD-10 - F33.2) [email or web address] Other 03-24-2022 Evaluation note* Encounter Date Diagnosis Assessment Notes Treatment Notes Treatment Clinical Notes Dec, GERD (gastroesophageal reflux disease) (ICD-10 - K21.9) [facility] [employer] Other Discharge summary Author Jesus Alberto Aquino [facility] December 31, 2022 3:43pm Note Date/Time December 31, 2022 11:5 7am [facility] [address] [place], [place] [address] Discharge Summary Signed Patient: Gera Perdue MR#: [id number] : 1945 Acct:[id number] Age/Sex: 77 / F Adm Date: 3 Loc: 4N Room: [address] [place] [address]: Jesus Alberto Aquino MD Copies [...] complications occurred, and patient was discharged to group home facility in stable condition on December 31. [...] % (Auto) N/A, Lymph % (Auto) N/A, [place] % (Auto) N/A, Eos % (Auto) N/A, Baso % (Auto) N/A, Nucleat RBC Rel Count N/A, Neut # (Auto) N/A, Lymph # (Auto) N/A, [place] # (Auto) N/A, Eos # (Auto) N/A, [...] 09:23 Discharge Plan Discharge Plan Patient Disposition: Shelter Facility Activity: No Activity Restriction Diet: Regular [...] by Jesus Alberto Aquino MD> 12/31/22 1544 [facility] Work Phone: Discharge summary Author Jolanta Mckenzie [facility] July 14, 2023 11:16am Note Date/Time July 14, 2023 11:16am [facility] [address] [place] [address] Discharge Summary Signed Patient: Gera Perdue MR#: [id number] : 1945 Acct:[id number] Age/Sex: 77 / F Adm Date: 3 Loc: Room: [address] [place] [address]: Jolanta Mckenzie MD Copies to: [...] breathing. Physical therapy wasconsulted with recommendation for group home facility which patient is refusing understanding the [...] % (Auto) 69.9, Lymph % (Auto) 22.1, [place] % (Auto) 7.3, Eos % (Auto) 0.4, Baso % (Auto) 0.3, Nucleat RBC Rel Count 0.1, Neut # (Auto) 13.5 H, Lymph # (Auto) 4.3, [place] # (Auto) 1.4 H, Eos # (Auto) [...] <Electronically signed by Jolanta Mckenzie MD> 07/14/[address] [place] [address] Ctr Work Phone: Discharge summary Author Michoacano Mckenzie [facility] February 17, 2024 4:57pm Note Date/Time February 17, 2024 4:4 6pm [facility] [address] [place] [address] Discharge Summary Signed Patient: Gera Perdue MR#: [id number] : 1945 Acct:[id number] Age/Sex: 78 / F Adm Date: 4 Loc: Room: [address] [place] [address]: Michoacano Mckenzie MD Copies to: [...] by physical and Occupational Therapy, who recommended group home placement. Patient was very adamant that she [...] signed by Michoacano Mckenzie MD> 02/17/24 1657 [facility] Work Phone: evaluation noteNo InformationNort [employer] Other Evaluation noteNo assessment information available [facility] Work Phone: evaluation note* Diagnosis Onset Date Resolution Status Accidental fall acute Head injury acute Inability to perform activities of daily living acute [facility] Work Phone: evaluation note* Diagnosis Onset Date Resolution Status Accidental fall acute Acute hip pain acute Fall acute Head injury acute Inability to perform activities of daily living acute Physical deconditioning acut e [facility] Work Phone: evaluation note* Diagnosis Onset Date Resolution Status Acute exacerbation of chroni c obstructive pulmonary disease acute CAD (coronary artery disease) acute Closed head injury acute Contusion of hip acute Fall acute Umbilical hernia acute UTI (urinary tract infection) acute [facility] Work Phone: evaluation note* Diagnosis Onset Date Resolution Status Acute exacerbation of chroni c obstructive pulmonary disease acute CAD (coronary artery disease) acute Closed head injury acute Contusion of hip acute Fall acute Umbilical hernia acute UTI (urinary tract infection) acute Acute UTI acute ARTURO (acute kidney injury) ac jose rafael Weakness acute [facility] Work Phone: evaluation note* Diagnosis SOB (shortness of breath)- Primary Shortness of breath Wheezing Urinary tract bacterial infections Urinary tract infection, site not specified Essential hypertension (CMS/HCC) Unspecified essential hypertension Mixed hyperlipidemia (CMS/HCC) Mixed hyperlipidemia Stage 3a chronic kidney disease (HCC) ([facility]/HCC) Sepsis with acute renal failure without septic shock, due to unspecified organism, unspecified acute renal failure type (CMS/HCC) Hospital discharge follow-up Other follow-up examination Medication management Female bladder prolapse Pulmonary emphysema, unspecified emphysema type (CMS/HCC) [facility] Diagnosis Shortness of breath 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 Stage 3b chronic [...] Cough Current smoker documented in this encounter [facility] Work Phone: Evaluation note* Diagnosis Shortness of breath documented in this encounter [facility] Work Phone: Evaluation note* Diagnosis Shortness of breath 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 History of PTCA Postsurgical percutaneous transluminal coronary angioplasty status Essential hypertension Unspecified essential hypertension Hyperlipidemia, mixed Mixed hyperlipidemia Obstructive sleep apnea syndrome Obstructive sleep apnea (adult) (pediatric) BMI 35.0-35.9,adult Current smoker Chronic hypoxemic respiratory failure (Multi) Chronic respiratory failure Encounter to discuss test results Other specified counseling documented in this encounter [facility] Work Phone: Evaluation note* Diagnosis Onset Date Resolution Status Nausea and vomiting acute Pneumonia acute UTI (urinary tract infection) acute [facility] Work Phone: Evaluation note* Diagnosis Onset Date Resolution Status CAD (coronary artery disease) acute GERD (gastroesophageal reflux disease) acute Nausea and vomiting acute Pneumonia acute UTI (urinary tract infection) acute COPD (chronic obstructive pulmonary disease) chronic [facility] Work Phone: History and physical note Author Jolanta Mckenzie [facility] December 27, 2022 12:32am Note Date/Time December 26, 2022 11:0 5pm [facility] [address] [place] [address] Hospitalist H&P Signed with Addenda Patient: Gera Perdue MR#: [id number] : 1945 Acct:[id number] Age/Sex: 77 / F Adm Date: 3 Loc: 4N Room: 3F0747-2 Type: ADM IN Attending Dr: Jolanta Mckenzie [...] any cardiac arrhythmia. Patient will likely require group home facility on discharge. Addendum Documented By: Jolanta [...] % (Auto) 24.8 % (.) 12/26/22 19:36 [place] % (Auto) 10.1 % (.) 12/26/22 19:36 Eos % (Auto) 1.1 % (.) 12/26/22 19:36 Baso % (Auto) 0.5 % (.) 12/26/22 19:36 Nucleat RBC Rel Count 0.1 /100 WBC (0-0.5) 12/26/22 19:36 Neut # (Auto) 7.6 x10E3/uL (1.8-7.7) 12/26/22 19:36 Lymph # (Auto) 3.0 x10E3/uL (1.00-4.8) 12/26/22 19:36 [place] # (Auto) 1.2 x10E3/uL (0.0-0.8) H 12/26/22 [...] signed by MD SEAN Mann> 12/27/22 0022 [facility] Work Phone: History and physical note Author Jolanta Mckenzie [facility] July 10, 2023 1:50pm Note Date/Time July 10, 2023 1:44pm [facility] [address] [place] [address] Hospitalist H&P Signed Patient: Gera Perdue MR#: [id number] : 1945 Acct:[id number] Age/Sex: 77 / F Adm Date: 3 Loc: Room: [address] [place] [address] Type: ADM IN Attending Dr: Jolanta Mckenzie [...] negative unless noted below or in HPI [facility] Medical History Arthritis COPD (chronic obstructive [...] % (Auto) 31.5 % (.) 07/10/23 08:44 [place] % (Auto) 6.5 % (.) 07/10/23 08:44 Eos % (Auto) 0.4 % (.) 07/10/23 08:44 Baso % (Auto) 0.2 % (.) 07/10/23 08:44 Nucleat RBC Rel Count 0.1 /100 WBC (0-0.5) 07/10/23 08:44 Neut # (Auto) 13.1 x10E3/uL (1.8-7.7) H 07/10/23 08:44 Lymph # (Auto) 6.7 x10E3/uL (1.00-4.8) H 07/10/23 08:44 [place] # (Auto) 1.4 x10E3/uL (0.0-0.8) H 07/10/23 [...] pH 8.5 (5.0-9.0) 07/10/23 08:44 Ur Specific [place] 1.022 (1.001-1.030) 07/10/23 08:44 Urine Protein 30 [...] signed by Jolanta Mckenzie MD> 07/10/23 1350 [facility] Work Phone: History general Narrative - [...] diverticulosis, >10cm removed. no anastamosis Dr Fonseca, [facility]'. Surgical History EGD Surgical History colostomy 01/07 per [facility] Surgical History Bowel resection with reversal o f colostomy 02-25-2015 Surgical History SKIN BIOPSY X 2 ON FACE 8-9-201 6 Surgical History left IM nailing 09-02-20 Surgical History left hip FX 10/2020 Hospitalization History 6 child births Hospitalization History See Above Hospitalization History Kidney stones Hospitalization History [facility] [place] bowel obstruction 10/2019 Hospitalization History Fell/ UTI Hospitalization History [facility] [place] fell left hip fr acture 10/2020 [email or web address] Other Hospital course Narrative No data available for this section [facility] [place] [facility] Discharge instructions Additional Instructions Use the albuterol inhaler as prescribed here COPD exacerbation take prednisone as prescribed. Take Tylenol as needed for hip pain. Follow-up with your PCP for reevaluation in 5 to 7 days.[facility] Work Phone: Hospital Discharge instructions Additional [...] precautions Care to be managed by SNF providers[facility] Work Phone: Hospital Discharge instructionsAmbulatory Orders* [...] wraps to BLE. Change daily and prn -[facility] Work Phone: Hospital Discharge instructions Additional Instructions SNF TO MANAGE: PT/OT to eval and treat Monitor VS per protocol Monitor Neuro. assessment--Encephalopathy Monitor Urinary assessment and for increased signs of infection--UTI, Sepsis Monitor assessment--RATURO Daily dressing change to left lower posterior leg abrasions: *Clean with NS and pat dry. Hydrogel to the wound bed. Top with Telfa. Secure with Conform and stockinette. Skin Care BID: Theraworx protect to bilateral abdominal and breast fold redness. Skin care every 3 days: Mepilex border foam to Coccyx for protection. Maintain high risk fall precautions Care to be managed by SNF [facility] Work Phone: Hospital Discharge instructions No data available for this section [facility] Hospital[facility]ructionsNot on filedocumented in this encounter [facility] SystemInstructionsNot on filedocumented in this encounter [facility] SystemInstructionsNot on filedocumented in this encounter [facility] SystemInstructionsNot on filedocumented in this encounter [facility] SystemProgress note Author Carla Hagan [facility] December 27, 2022 12:40pm Note Date/Time December 27, 2022 9:25 am [facility] [address] [place] [address] Hospitalist Progress Note Signed Patient: Gera Perdue MR#: [id number] : 1945 Acct:[id number] Age/Sex: 77 / F Adm Date: 3 Loc: Room: [address] [place] [address] Type: ADM IN Attending Dr: Carla Hagan [...] 40 Mg Tablet. PO 12/27/23 08:59 DAILY [facility] Paroxetine HCl 40 mg 12/27/22 09:00 Paroxetine 20 Mg Tablet PO 12/27/23 08:59 QAM JERILYN Pregabalin 75 mg 12/27/22 09:00 Pregabalin 75 Mg Capsule PO 06/25/23 08:59 BID JEIRLYN Sodium Chloride 0 ml 12/26/22 19:02 12/26/22 [...] 15 Gm Tube TOPICAL 12/27/23 08:59 BID [facility] Vitamin D 50 mcg 12/27/22 09:00 [...] any cardiac arrhythmia.? Patient will likely require group home facility on discharge. Documented By: Carla Hagan MD 12/27/22 0857 Signed By: <Electronically signed by Carla Hagan MD> 12/27/22 1240 <Electronically signed by DO SEAN Armas> 12/27/22 1134 [facility] Work Phone: Progress note Author Carla Hagan [facility] December 28, 2022 11:14am Note Date/Time December 28, 2022 9:27 am [facility] [address] [place] [address] Hospitalist Progress Note Signed Patient: Gera Perdue MR#: [id number] : 1945 Acct:[id number] Age/Sex: 77 / F Adm Date: 3 Loc: 4N Room: [address] [place] [address] Type: ADM IN Attending Dr: Carla Hagan [...] any cardiac arrhythmia.? Patient will likely require group home facility on discharge. Patient is medically cleared for discharge pending placement approval. The patient would likely need to have additional work-up, investigation and therapeutic intervention but will be determined based on the clinical progression and follow-up test result Documented By: Carla Hagan MD 12/28/22 0918 Signed By: <Electronically signed by Carla Hagan MD> 12/28/22 1114 <Electronically signed by DO SEAN Armas> 12/28/22 1048 [facility] Work Phone: Progress note Author Carla Hagan [facility] December 29, 2022 10:00am Note Date/Time December 29, 2022 10:0 0am [facility] [address] [place] [address] Hospitalist Progress Note Signed Patient: Gera Perdue MR#: [id number] : 1945 Acct:[id number] Age/Sex: 77 / F Adm Date: 3 Loc: 4N Room: [address] [place] [address] Type: ADM IN Attending Dr: Carla Hagan [...] place, time and person. Morbidly obese HEENT: [place] conjunctiva and NL buccal mucosa Neck: Supple, [...] signed by Carla Hagan MD> 12/29/22 1000 [facility] Work Phone: Progress note Author Carla Hagan [facility] December 30, 2022 9:53am Note Date/Time December 30, 2022 9:53 am [facility] [address] [place] [address] Hospitalist Progress Note Signed Patient: Gera Perdue MR#: [id number] : 1945 Acct:[id number] Age/Sex: 77 / F Adm Date: 3 Loc: 4N Room: 2J8366-3 Type: ADM IN Attending Dr: Carla Hagan [...] place, time and person. Morbidly obese HEENT: [place] conjunctiva and NL buccal mucosa Neck: Supple, [...] anemia Plan is to discharge patient to group home unit for short period of time for [...] signed by Carla Hagan MD> 12/30/22 0953 [facility] Work Phone: Progress note Author Jolanta Mckenzie [facility] July 11, 2023 12:47pm Note Date/Time July 11, 2023 10:10am [facility] [address] [place] [address] Hospitalist Progress Note Signed with Ling Patient: Gera Perdue MR#: [id number] : 1945 Acct:[id number] Age/Sex: 77 / F Adm Date: 3 Loc: Room: [address] [place] [address] Type: ADM IN Attending Dr: Jolanta Mckenzie [...] 100 Mg Tablet PO 100 mg BID JREILYN Administration Heparin Sodium (Porcine) 5,000 unit 07/10/23 14:00 07/11/23 05:56 Heparin 5,000 Unit/Ml Vial SUBCUT 07/09/24 13:59 5,000 unit [id number] JERILYN Administration Sodium Chloride 1,000 mls @ 75 mls/hr 07/10/23 14:00 07/11/23 05:57 0.9% Sodium Chloride 1,000 Ml IV 07/09/24 13:59 75 mls/hr .[id number] JERILYN Administration Ceftriaxone Sodium 1 gm in [...] signed by Jolanta Mckenzie MD> 07/11/23 1246 [facility] Work Phone: Progress note Author Jolanta Mckenzie [facility] July 12, 2023 3:00pm Note Date/Time July 12, 2023 2:16pm [facility] [address] [place] [address] Hospitalist Progress Note Signed with Addenda Patient: Gera Perdue MR#: [id number] : 1945 Acct:[id number] Age/Sex: 77 / F Adm Date: 3 Loc: Room: [address] [place] [address] Type: ADM IN Attending Dr: Jolanta Mckenzie [...] and switch to oral prednisone. PT recommended group home facility which patient is refusing with plan [...] 1,000 Ml IV 07/09/24 13:59 75 mls/hr .[id number] JERILYN Administration Ceftriaxone Sodium 1 gm in [...] signed by Jolanta Mckenzie MD> 07/12/23 1457 [facility] Work Phone: Progress note Author Jolanta Mckenzie [facility] July 13, 2023 1:59pm Note Date/Time July 13, 2023 10:40am [facility] [address] [place] [address] Hospitalist Progress Note Signed with Addenda Patient: Gera Perdue MR#: [id number] : 1945 Acct:[id number] Age/Sex: 77 / F Adm Date: 3 Loc: 3T Room: [address] [place] [address] Type: ADM IN Attending Dr: Jolanta Mckenzie [...] but patient also on steroid. Discussed regarding group home facility she has not decided yet. Give 1 dose of IV Lasix and resume oral Lasix from tomorrow. 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 Advance Directives and Living Will Power of Mgmt Analyst Latest Code Status on File Code Status Date Activated Date Inactivated Comments Full Code 08/02/2019 12:07 AM Advance Directive Response Recorded Date/ Time Advance Directives Yes May 13 2:57pm Advance Directive Response Recorded Date/ Time Advance Directives Yes May 13 1:57pm Documents on File Type Date Recorded 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 DNR Physician Order 10/29/2023 8:25 AM Durable Power of Mgmt Analyst 10/29/2023 6:51 AM Latest Code Status on File Code Status Date Activated Date Inactivated Comments DNR Comfort Care Arrest (DNR -CCA) [place] 10/11/2023 11:48 AM 10/23/2023 1:09 PM Code Status History Code Status Date Activated Date Inactivated Comments Full Code 10/05/2023 8:00 PM 10/11/2023 11:48 AM Hospital Course * Ellen Gonzalez MD - 08/04/2019 1:39 PM EDT [facility] IN-PATIENT SERVICE [facility] Discharge Summary Patient ID: Gera Perdue : 1945 ACCOUNT: [id number] Patient's PCP: Physician Ng (Inactive) Admit Date: [...] Admitting Physician: Verenice Chilel MD PCP: Physician Ng (Inactive) Discharging [...] Assisted Dressing Assisted Toileting Assisted Feeding Independent Photographic Spotter Independent Med Delivery whole Wound Care Documentation [...] applicable) Name: Address: Dialysis Schedule: Phone: Fax: Cutting Tool Sharpener/Rouge Sifter And Miller signature: {Esignature:[id number]} PHYSICIAN SECTION Prognosis: Good Condition at Discharge: [...] sent through Care Everywhere. * Low-Fiber Diet (Fijian) documented in this encounter History of Present Illness * Ellen Gonzalez MD - 08/04/2019 10:03 AM EDT [facility] IN-PATIENT SERVICE [facility] Progress Note 08/04/2019 10:03 AM Name: Gera Perdue Acct: [id number] Room[facility] Day: 3 Admit Date: 08/01/2019 11:58 PM [...] Gonzalez MD - 08/03/2019 12:24 PM EDT [facility] IN-PATIENT SERVICE [facility] Progress Note 08/03/2019 12:24 PM Name: Gera Perdue Acct: [id number] Room: 0236/[id number] IP Day: 2 Admit Date: [...] Attending Note I have reviewed the above [facility] resident progress note and I either performed [...] 08/02/2019 9:16 AM EDT Attempted to call [facility] in [place] to retrieve home medication list, but pharmacy does not open until 10:00 am. Supervisor Carpenters will attempt again after this time. * [...] Coronary atherosclerosis of unspecified type of vessel, minto or graft Mixed hyperlipidemia Essential hypertension Unspecified [...] chest 2 views Jenna Engle MD [address] [address] Referral ID Status Reason Start Date Expiration Date Visits Requested Visits Authorized [id number] Authorized Perform Procedure 01/06/2024 01/05/2025 1 1 Specialty Diagnoses / Procedures Referred By Contac t Referred To Contact Diagnoses Shortness of breath Procedures ECG 12 Lead Jenna Engle MD [address] [place] [address] Referral ID Status Reason Start Date Expiration Date V isits Requested Visits Authorized [id number] Authorized 01/06/2024 01/05/2025 1 1 Specialty Diagnoses / Procedures Referred By Contac t Referred To Contact Cardiology Diagnoses Shortness of breath Procedures Follow Up In Cardiology Jenna Engle MD [address] [place] [address] Jenna Engle MD [address] [place] [address] Referral ID Status Reason Start Date Expiration Date V isits Requested Visits Authorized [id number] Authorized 01/06/2024 01/05/2025 1 1 Specialty Diagnoses / Procedures Referred By Contac t Referred To Contact Cardiology Diagnoses Shortness of breath Procedures Transthoracic Echo Complete [place] ECHO TTHRC R-T 2D W/WOM-MODE COMPL SPEC&COLR D Jenna Engle MD 254 [facility] [address] [place] [address] Referral ID Status Reason Start Date Expiration Date Visits Requested Visits Authorized [id number] Pending Review Perform Procedure 01/06/2024 01/05/2025 1 1 Specialty Diagnoses / Procedures Referred By Contac t Referred To Contact Senior Support Engineer Diagnoses Essential hypertension (CMS/HCC) Stage 3a chronic kidney disease (HCC) (CMS/HCC) Sepsis with acute renal failure without septic shock, due to unspecified organism, unspecified acute renal failure type (CMS/HCC) Medication management Procedures [place] OFFICE/OUTPATIENT NEW HIGH MDM 60 MINUTES Lilliam Cheek, PHOTO MACHINE OPERATOR [address] [place] [address] [address] Referral ID Status Reason Start Date Expiration Date Visits Requested Visits Authorized [id number] Pending Review Specialty Services Required 12/09/2023 06/06/2024 [...] type (CMS/HCC) Medication management DidLilliam knox L, PHOTO MACHINE OPERATOR [address] [place] [address] Referral ID Status Reason Start Date Expiration Date Visits Requested Visits Authorized [id number] Pending Review Specialty Services Required 12/09/2023 02/07/[phone] Specialty Diagnoses / Procedures Referred By Contac t Referred To Contact Obstetrics and Gynecology Diagnoses Urinary tract bacterial infections Female bladder prolapse Procedures [place] OFFICE/OUTPATIENT NEW HIGH MDM 60 MINUTES Lilliam Cheek, GIOVANY [address] [place] [address] Cee Cordero DO [address] [place] [address] Referral ID Status Reason Start Date Expiration Date Visits Requested Visits Authorized [id number] Pending Review Specialty Services Required 12/09/2023 06/06/2024 1 1 Additional Source Comments INFORMATION SOURCE (unrecogn ized section and content) DATE CREATED AUTHOR 07/12/2018 [facility] DATE CREATED AUTHOR AUTHOR'S ORGANIZ ATION 08/29/2019 [facility] DATE CREATED AUTHOR AUTHOR'S ORGANIZ ATION 12/24/2020 [facility] DATE CREATED AUTHOR AUTHOR'S ORGANIZ ATION 05/01/2022 [facility] dical Specialist DATE CREATED AUTHOR AUTHOR'S ORGANIZ ATION 01/02/[address] [facility] DATE CREATED AUTHOR AUTHOR'S ORGANIZ ATION 01/21/2023 [facility] DATE CREATED AUTHOR AUTHOR'S ORGANIZ ATION 02/01/2024 [facility] DATE CREATED AUTHOR AUTHOR'S ORGANIZ ATION 02/16/2024 [facility] DATE CREATED AUTHOR AUTHOR'S ORGANIZ ATION 02/26/2024 [facility] DATE CREATED AUTHOR AUTHOR'S ORGANIZ ATION 04/23/2024 [facility] DATE CREATED AUTHOR AUTHOR'S ORGANIZ ATION 05/02/2024 [facility] DATE CREATED AUTHOR AUTHOR'S ORGANIZ ATION 07/04/2024 [facility] dical Specialists [facility] DATE CREATED AUTHOR AUTHOR'S ORGANIZ ATION 08/20/2024 [facility] ys[facility] Reason for Visit (unrecogniz ed section and content) Status Reason Specialty Diagnoses / Procedures Referre d By Contact Referred To Contact Diagnoses Small bowel obstruction (HCC) Verenice Shea MD [address] [address] [facility] Reason Onset Date Comments Neuro Appt 10/30/2023 Reason Comments Hospital Follow-up Reason Comments New Patient Visit Old [facility] patient Specialty Diagnoses / Procedures Referred By Contac t Referred To Contact Cardiology Diagnoses Shortness of breath Procedures Transthoracic Echo Complete [place] ECHO TTHRC R-T 2D W/WOM-MODE COMPL SPEC&COLR D Jenna Engle MD [address] [place] [address] Referral ID Status Reason Start Date Expiration Date Visits Requested Visits Authorized [id number] Authorized Perform Procedure 01/06/2024 01/05/2025 1 1 Reason Comments Follow-up 1m echo results Specialty Diagnoses / Procedures Referred By Contvianney t Referred To Contact Cardiology Diagnoses Shortness of breath Procedures Follow Up In Cardiology Jenna Engle MD [address] [place] [address] Jenna Engle MD 254 [email or web address] [address] [place] [address] Referral ID Status Reason Start Date Expiration Date V isits Requested Visits Authorized [id number] Authorized 01/06/2024 01/05/2025 1 1 Care Teams (unrecognized sec tion and content) Team Status: Inactive Member Role Status Dates Gustavo Salas , Primary Care Provider Active Hilario Yenug , DO Emergency Provider Active Team Status: [...] DO Primary Care Provider Active Kadie Jones [facility] Emergency Provider Active Team Status: Active Member [...] Aquino MD Admit Provider, Attending Provider Active Life Skills Educator Relationship Specialty Start Date End Date Mely Camarillo APRN-DIRECTOR EMERGENCY [address] [place] [address] PCP - General Family Medicine 04/08/19 Life Skills Educator Relationship Specialty Start Date End Date [facility] [address] [place] [address] PCP - General Family Medicine 04/08/19 Life Skills Educator Relationship Specialty Start Date End Date Mely Camarillo APRN-[facility] [address] [place] [address] PCP - General Family Medicine 04/08/19 Life Skills Educator Relationship Specialty Start Date End Date Gustavo Salas DO [address] [place] [address] PCP - General Internal Medicine 12/09/23 Leah Burgos RN [address] [place] [address] Registered Nurse Internal Medicine 12/09/23 Life Skills Educator Relationship Specialty Start Date End Date Gustavo Salas [address] [place] [address] PCP - General Internal Medicine 01/06/24 Life Skills Educator Relationship Specialty Start Date End Date Gustavo Salas DO [address] [place] [address] PCP - General Internal Medicine 01/06/24 Life Skills Educator Relationship Specialty Start Date End Date Gustavo Salas DO [address] [place] [address] PCP - General Internal Medicine 01/06/24 Team Status: Inactive Member Role Status Dates Gustavo Salas DO Primary Care Provider Active Start: January 06, 2024 End: January 06, 2024 Jenna Engle MD Attending Provider Active Star t: January 06, 2024 End: January 06, 2024 Team Status: Active Member Role Status Dates Gustavo Salas DO Primary Care Provider Active Start: February 14, 2024 Kadie Jones [facility]- Emergency Provider Active Start: February 14, 2024 Lucho Grullon MD Admit Provider, Atte nding Provider Active Start: February 14, 2024 Team Status: Inactive Member Role Status Dates Gustavo Salas DO Primary Care Provider Active Start: February 14, 2024 End: February 17, 2024 Kadie Jones [facility]- Emergency Provider Active Start: February 14, 2024 End: February 17, 2024 Lucho Grullon MD Admit Provider Active Start: February 14, 2024 End: February 17, 2024 Michoacano Mckenzie MD Attending Provider Active Start: February 14, 2024 End: February 17, 2024 Team Status: Active Member Role Status Dates Gustavo Salas DO Primary Care Provider Active Start: February 14, 2024 Kadie Jones [facility] Emergency Provider Active Start: February 14, 2024 [...] BE BASED ON THE PRIMARY CLINICAL RECORDS. [facility] [employer] provides no warranty or guarantee of the accuracy or completeness of information in this document.
[2024-09-19 15:02] LABS: Lactate/Lactic Acid 0.9 mmol/L (0.4-2.0)
[2024-09-19] MEDS: MORPHINE SULFATE 2 MG/ML SYRINGE IV ×2 (15:13→19:35)
[2024-09-19] MEDS: 0.9 % SODIUM CHLORIDE 1,000 ML 1000 ML IV (15:13)
[2024-09-19] MEDS: GUAIFENESIN 600 MG TAB.ER.12H PO ×2 (15:13→22:05)
[2024-09-19 15:16] LABS: D Dimer 1.54 mg/L FEU (<=0.59)
[2024-09-19] MEDS: 0.9 % SODIUM CHLORIDE 1,000 ML 125 ML IV (16:16)
--- NOTE | 2024-09-19 16:59 | CT_ITS ---
[address] [address] Patient Name: GERA PERDUE MRN: [id number] date: 1945 Sex: F Assigned Patient Location: [place] Current Patient Location: [place] Accession/Order Number: [id number] Exam Date: 09/19/2024 17:50 Report Date: 09/19/2024 18:28 At the request of: SHAIKH FAVIO Procedure: CT angio chest EXAM: CT angio chest HISTORY: SOB COMPARISON: 08/29/2023 TECHNIQUE: CT chest with intravenous contrast was performed with timing for the evaluation for pulmonary arteries. Multiplanar reformats were performed. MIP (maximum intensity projection) images or 3D post processing was performed. Dose reduction techniques were achieved by using automated exposure control and/or adjustment of mA and/or kV according to patient size and/or use of iterative reconstruction technique. FINDINGS: Lungs: No pneumothorax or effusion. Right basilar atelectasis and/or consolidation. Airways: Normal. Mediastinum: No adenopathy. Aorta: No aneurysm. Cardiac: Normal size. No pericardial effusion. Pulmonary vasculature: Diagnostic opacification of pulmonary arteries without evidence of pulmonary embolus. Normal morphology. Bones: No acute bony abnormality. Axilla: No adenopathy. Thyroid gland: No abnormality demonstrated on provided imaging. Soft tissues: Unremarkable. Upper abdomen: Unremarkable. Additional findings: None. CT/CT angio chest IMPRESSION: No evidence of pulmonary embolus. Right basilar atelectasis and/or consolidation. Electronically authenticated by: CARLEY BHAT Date: 09/19/2024 18:28
[2024-09-19] MEDS: IPRATROPIUM/ALBUTEROL SULFATE 3 ML AMPUL.NEB IH ×2 (17:03→22:29)
--- NOTE | 2024-09-19 18:10 | P.HP_ITS ---
HPI H&P: HPI History of Present Illness Chief complaint: BACK/SIDE PAIN, SOB, CONGESTION COPD Narrative: 78 y o female with hx of chronic resp failure with hypoxia on 3 L and COPD, presented to ED with 7 day hx of progressively worsening SOB, wheezing and productive cough. She denies fever but noted that she has been feeling cold and sweating more than usual. She also reports feeling lightheaded earlier today. Upon ROS, patient also reports poor appetite and decreased PO intake. Along with respiratory symptoms, she also has midline back pain extending all the way from thoracic to lumbar region with no radiculopathy or weakness/numbness. Patient was tachypneic, with labored breathing and was using accessory muscles of respiration at the time of my evaluation despite receiving IV solumedrol and duonebs in ED. Pt denies nausea, vomiting, constipation, diarrhea. She denies urinary complaints. She also has generalized abdominal discomfort.Patient denies recent fall or trauma. Opioid HPI Opioid Management Most Recent Pain and Opioid Data: Last Pain Scale 0 09/19/24 16:12 09/19/24 Last Pain Assessment 09/19/24 18:00 Last MAR Pain Assessment 09/19/24 16:12 Last ORT Total Score 3 09/19/24 14:31 09/19/24 Last ORT Risk Category Low Risk 09/19/24 14:31 09/19/24 Review of Systems 2 ROS Status of ROS 10 or more systems reviewed and unremark able except as noted in history and below [facility] Medical History (Updated 09/19/24 @ 18:22 by Shaikh Ingrid MD) Chronic respiratory failure with hypoxia ?J96.11 - Chronic respiratory failure with hypoxia (ICD-10) Anemia ?D64.9 - Anemia, unspecified (ICD-10) HLD (hyperlipidemia) ?E78.5 - Hyperlipidemia, unspecified (ICD-10) ARMAND (obstructive sleep apnea) ?G47.33 - Obstructive sleep apnea (adult) (pediatric) (ICD-10) COPD (chronic obstructive pulmonary disease) ?J44.9 - Chronic obstructive pulmonary disease, unspecified (ICD-10) HTN (hypertension) ?I10 - Essential (primary) hypertension (ICD-10) Surgical History History of colon surgery ?Z98.890 - Other specified postprocedural states (ICD-10) Family History (Updated 09/19/24 @ 15:01 by Mona Monroe) Grandmother Family history of CHF (congestive heart failure) Family history of cancer Family history of hypertension Family history of myocardial infarction Mother Family history of CHF (congestive heart failure) Family history of cancer Family history of hypertension Family history of myocardial infarction Uncle Family history of COPD (chronic obstructive pulmonary disease) Aunt Family history of cancer Social History (Updated 09/19/24 @ 15:02 by Mona Monroe) Within the past year, how often did you have a drink containing alcohol: never Within the past year, how often did you have six or more drinks on one occasion: never Score interpretation: A score less than 3 is consistent with normal alcohol consumption. 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 Highest level of school completed/degree received: 11th grade Are you now , , , , never or living with a partner: In a typical week, how many times do you talk on the telephone with family, friends, or neighbors: 3 or more times per week How often do you get together with friends or relatives: 3 or more times per week How often do you attend sikhism or religion services: 1-3 times per year Do you belong to any clubs or organizations such as sikhism groups unions, fraternal or athletic groups, or school groups: yes Total score: 2 Score interpretation: A score of greater than or equal to 2 indicates the lowest level of social isolation. Little interest or pleasure in doing things: several days Feeling down, depressed, or hopeless: several days Feel stressed/tense/nervous/anxious/difficulty sleeping: to some extent Meds Home Medications and Allergies Home Medications ?Medication ?Instructions ?Recorded ?Confirmed ?Type albuterol sulfate 90 mcg/actuation 2 puff inhalation Q4H PRN 08/28/23 09/19/24 History aerosol inhaler shortness of breath or wheezing bupropion HCl 300 mg 24 hr tablet, 300 mg PO QDAY 08/28/23 09/19/24 History extended release cholecalciferol (vitamin D3) 50 50 mcg PO DAILY 08/28/23 09/19/24 History mcg (2,000 unit) tablet pregabalin 75 mg capsule 75 mg PO BID 08/28/23 09/19/24 History melatonin 5 mg tablet 5 mg PO QPM 08/14/24 09/19/24 History fluticasone fur. 100 mcg-umeclid 1 inh inhalation QAM 09/19/24 09/19/24 History 62.5 mcg-vilant 25 mcg inhalat.powder (Trelegy Ellipta) Allergies Allergy/AdvReac Type Severity Reaction Status Date / Time aspirin Allergy Severe Hives Verified 09/19/24 12:12 Exam Constitutional Vital Signs, click to edit/add: Last Vital Signs Temp 97.5 F L 09/19/24 14:31 Pulse 84 09/19/24 17:03 Resp 22 H 09/19/24 14:31 BP 122/34 L 09/19/24 14:31 Pulse Ox 97 09/19/24 17:03 O2 Del Method Nasal Cannula 09/19/24 17:03 O2 Flow Rate 3 09/19/24 17:03 Documenting provider has reviewed patient's vital signs: yes Common normals: oriented x3 General appearance: cooperative, in distress respiratory, ill appearing and frail appearing [facility] Common normals: normocephalic and head/scalp atraumatic Head and scalp: normocephalic and atraumatic Eye Common normals: conjunctivae normal and no scleral icterus Conjunctiva: conjunctiva(e) normal Respiratory Effort & inspection: tachypneic, respiratory distress, labored and audible wheezes Auscultation: wheezes expiratory wheezes, inspiratory wheezes and throughout Other: Dyspneic at rest, Unable to converse due to dyspnea. Cardio Common normals: regular rate, S1 normal heart sound and S2 normal heart sound Rate: regular rate Heart sounds: S1 normal and S2 normal GI Common normals: soft to palpation, non-tender and no hepatosplenomegaly Palpation: hernia ventral Extremity Common normals: no clubbing, cyanosis or edema Neuro Common normals: oriented x3, moves all extremities and no focal motor deficits Psych Common normals: mental status grossly normal, denies hallucinations, denies homicidal ideation and denies suicidal ideation Results Labs Labs: Short CBC 09/19/24 Range/Units 12:22 WBC 10.9 (4.0-11.0) 10^3/uL Hgb 10.4 L (12.0-16.0) g/dL Hct 35.4 L (36.0-48.0) % Plt Count 334 (150-450) 10^3/uL BMP 09/19/24 12:22 Sodium 140 Potassium 3.8 Chloride 106 Carbon Dioxide 26.3 BUN 14.0 Creatinine 1.17 H Glucose 129 H Calcium 8.9 Assessment and Plan Assessment and Plan (1) Acute exacerbation of chronic obstructive pulmonary disease: Assessment and Plan: Normal CXR, negative influenza/Covid. D dimer elevated - CTA pending. Significant generalized wheezing, with respiratory distress, using accessory muscle of respiration. C/w IV solumedrol, duonebs. Monitor closely. (2) Chronic respiratory failure with hypoxia: Assessment and Plan: On 3 L O2 via NC. While her O2 requirement has not changed, she is considerably SOB with audible wheezing, resp distress, increased work of breathing using accessory muscles of respiration. C/w solumedrol, duonebs. (3) Thoracolumbar back pain: Assessment and Plan: Likely musculoskeletal. Pain control. PT eval (4) Elevated d-dimer: Assessment and Plan: CTA chest pending. (5) HTN (hypertension): Assessment and Plan: Monitor BP. Not on any antihypertensives Qualifiers: Hypertension type: primary hypertension Qualified Code(s): I10 - Essential (primary) hypertension
--- NOTE | 2024-09-19 18:27 | W.ACP ---
Advance Care Planning Advance Care Planning Discussion Does patient have a terminal or chronic,progressive disease such that prognosis is less than 6 months: No Advance care planning discussion participants: patient Advance care planning discussion summary: 78 y o female presented to ED with worsening SOB from COPD exacerbation. She uses O2 chronically and her baseline O2 requirement is 3 L. Goals of care, treatment plan including code status discussed with patient. She was explained in great details what different code statuses mean and how mechanical ventilation works. She informed me that she does not want CPR and invasive mechanical ventilation. She signed DNR CCA paperwork and her code status was updated in the chart. Physician Time Time Spent Time Spent: More than 15 minutes spent with family
[2024-09-19] MEDS: AZITHROMYCIN 250 MG TABLET PO (19:35)
[2024-09-19] MEDS: METHYLPREDNISOLONE SOD SUCC PF 40 MG/ML VIAL IVP (19:35)
[2024-09-19] MEDS: ENOXAPARIN SODIUM 40 MG/0.4 ML SYRINGE SUBQ (19:35)
[2024-09-19] MEDS: PREGABALIN 75 MG CAPSULE PO (21:22)
[2024-09-19] MEDS: TEMAZEPAM 15 MG CAPSULE PO (22:05)
[2024-09-19] MEDS: BUDESONIDE 0.5 MG/2 ML AMPULE NEB IH (22:29)
[2024-09-20] VITALS (7 sets, daily range): BP systolic 129–160; BP diastolic 61–87; PULSE 83–105; TEMP 36.4–36.7; O2SAT 93–96
[2024-09-20] MEDS: 0.9 % SODIUM CHLORIDE 1,000 ML 125 ML IV ×2 (01:06→08:02)
[2024-09-20] MEDS: METHYLPREDNISOLONE SOD SUCC PF 40 MG/ML VIAL IVP ×3 (04:59→20:22)
[2024-09-20] MEDS: IPRATROPIUM/ALBUTEROL SULFATE 3 ML AMPUL.NEB IH ×4 (05:01→22:19)
[2024-09-20 05:52] LABS: Basophils Percent Auto 0.1 % (0.2-2.0); Hematocrit 30.6 % (36.0-48.0); Hemoglobin 9.1 g/dL (12.0-16.0); Immature Granulocytes Abs Auto 0.04 10^3/uL (0.00-0.03); Immature Granulocytes Pct Auto 0.5 % (0.0-0.5); Lymphocytes Absolute Auto 1.1 10^3/uL (1.2-3.8); Lymphocytes Percent Auto 15.6 % (20.5-60.0); Mean Corpuscular HGB Conc 29.7 g/dL (29.9-35.2); Mean Corpuscular Hemoglobin 23.9 pg (26.7-34.0); Mean Corpuscular Volume 80.3 fL (81.0-99.0); Mean Platelet Volume 8.6 fL (9.5-13.5); Monocytes Absolute Auto 0.3 10^3/uL (0.3-0.8); Monocytes Percent Auto 3.7 % (1.7-12.0); Neutrophils Absolute Auto 5.9 10^3/uL (1.4-6.5); Neutrophils Percent Auto 80.1 % (43.0-75.0); Platelet Count 269 10^3/uL (150-450); Red Blood Count 3.81 10^6/uL (4.20-5.40); Red Cell Distribution Width 21.2 % (11.0-15.0); White Blood Count 7.3 10^3/uL (4.0-11.0)
[2024-09-20 06:13] LABS: Alanine Aminotransferase 12 U/L (14-59); Albumin Globulin Ratio 0.5; Albumin Level 2.2 g/dL (3.4-5.0); Alkaline Phosphatase 100 U/L (46-116); Anion Gap 12.8; Aspartate Amino Transferase 8 U/L (15-37); BUN Creatinine Ratio 9.8; Bilirubin Total 0.2 mg/dL (0.2-1.0); Chloride 111 mmol/L (98-107); Estimated GFR (African America 51 (>=60 mL/min/1.73m^2); Estimated GFR (Non-African Ame 42 (>=60 mL/min/1.73m^2); Globulin 4.2 g/dL; Glucose 219 mg/dL (74-106); Potassium 3.8 mmol/L (3.5-5.1); Sodium 145 mmol/L (136-145); Total Protein 6.4 g/dL (6.4-8.2)
[2024-09-20] MEDS: PREGABALIN 75 MG CAPSULE PO ×2 (08:12→20:13)
[2024-09-20] MEDS: CHOLECALCIFEROL (VITAMIN D3) 25 MCG/1,000 UNITS TABLET 50 MCG PO (08:12)
[2024-09-20] MEDS: GUAIFENESIN 600 MG TAB.ER.12H PO ×2 (08:13→20:13)
[2024-09-20] MEDS: CEFTRIAXONE 1,000 MG in 0.9 % SODIUM CHLORIDE 50 ML 100 MG IV (09:04)
--- NOTE | 2024-09-20 09:35 | PM.IMPN1 ---
Progress Note: A&P Assessment and Plan (1) Acute exacerbation of chronic obstructive pulmonary disease: Assessment and Plan: Mild improvement, still considerably dyspneic with generalized wheezing. C/w solumedrol, duonebs. Monitor closely (2) Pneumonia: Assessment and Plan: RLL PNA on CTA. Received Levaquin in ED on 09/19/24 Started on rocephin. Already on Azithromycin for COPD/PNA. Qualifiers: Pneumonia type: due to unspecified organism Laterality: right Lung location: lower lobe of lung Qualified Code(s): J18.9 - Pneumonia, unspecified organism (3) Chronic respiratory failure with hypoxia: Assessment and Plan: Monitor closely. On 3 L O2. She is still dyspneic at rest but not in resp distress anymore. (4) Thoracolumbar back pain: Assessment and Plan: PT eval. Pain control with combination of oral/IV naroctics. (5) Elevated d-dimer: Assessment and Plan: CTA - negative for PE. (6) HTN (hypertension): Assessment and Plan: Monitor BP. Qualifiers: Hypertension type: primary hypertension Qualified Code(s): I10 - Essential (primary) hypertension Internal Medicine - PN: Subj Subjective Interval history: Seen and examined. Still short of breath and dyspneic with audible generalized wheezing. However, overall improved and does not have signs of respiratory distress/labored breathing and not using accessory muscles. No overnight events Exam Constitutional Vital Signs, click to edit/add: Last Vital Signs Temp 97.6 F 09/20/24 05:04 Pulse 91 H 09/20/24 05:04 Resp 18 09/20/24 05:04 BP 129/66 09/20/24 05:04 Pulse Ox 93 L 09/20/24 05:04 O2 Del Method Room Air 09/20/24 05:04 O2 Flow Rate 3 09/20/24 05:02 Documenting provider has reviewed patient's vital signs: yes Common normals: oriented x3 General appearance: cooperative, ill appearing and frail appearing [facility] Common normals: normocephalic and head/scalp atraumatic Head and scalp: normocephalic and atraumatic Eye Common normals: conjunctivae normal and no scleral icterus Conjunctiva: conjunctiva(e) normal Respiratory Effort & inspection: audible wheezes Auscultation: wheezes expiratory wheezes, inspiratory wheezes and throughout Other: Dyspneic at rest, Unable to converse due to dyspnea. Cardio Common normals: regular rate, S1 normal heart sound and S2 normal heart sound Rate: regular rate Heart sounds: S1 normal and S2 normal GI Common normals: soft to palpation, non-tender and no hepatosplenomegaly Palpation: hernia ventral Extremity Common normals: no clubbing, cyanosis or edema Neuro Common normals: oriented x3, moves all extremities and no focal motor deficits Psych Common normals: mental status grossly normal, denies hallucinations, denies homicidal ideation and denies suicidal ideation Internal Medicine - PN: Obj Da Labs Labs: Laboratory Results - last 24 hr 09/19/24 09/19/24 09/20/24 12:22 12:29 05:37 WBC 10.9 7.3 RBC 4.49 3.81 L Hgb 10.4 L 9.1 L Hct 35.4 L 30.6 L MCV 78.8 L 80.3 L MCH 23.2 L 23.9 L MCHC 29.4 L 29.7 L RDW 21.2 H 21.2 H Plt Count 334 269 MPV 8.2 L 8.6 L Neut % (Auto) 61.9 80.1 H Lymph % (Auto) 26.2 15.6 L [place] % (Auto) 7.6 3.7 Eos % (Auto) 3.2 0.0 L Baso % (Auto) 0.7 0.1 L Neut # (Auto) 6.7 H 5.9 Lymph # (Auto) 2.9 1.1 L [place] # (Auto) 0.8 0.3 Eos # (Auto) 0.4 0.0 Baso # (Auto) 0.1 0.0 Abs Immat Gran (auto) 0.04 H 0.04 H Imm/Tot Granulo (auto) 0.4 0.5 D-Dimer 1.54 H* Sodium 140 145 Potassium 3.8 3.8 Chloride 106 111 H Carbon Dioxide 26.3 25.0 Anion Gap 11.5 12.8 BUN 14.0 12.0 Creatinine 1.17 H 1.23 H Est GFR ( Amer) 54 L 51 L Est GFR (Non-Af Amer) 45 L 42 L BUN/Creatinine Ratio 12.0 9.8 Glucose 129 H 219 H Lactate 0.9 Calcium 8.9 9.0 Total Bilirubin 0.2 AST 8 L ALT 12 L Alkaline Phosphatase 100 Troponin I High Sens 6.1 Total Protein 6.4 Albumin 2.2 L Globulin 4.2 Albumin/Globulin Ratio 0.5 Influenza Type A Ag Negative Influenza Type B Ag Negative SARS-CoV-2 Ag (CV2AG) Negative
[2024-09-20] MEDS: BUDESONIDE 0.5 MG/2 ML AMPULE NEB IH ×2 (10:45→22:19)
[2024-09-20] MEDS: MORPHINE SULFATE 2 MG/ML SYRINGE IV ×2 (12:44→18:16)
[2024-09-20] MEDS: AZITHROMYCIN 250 MG TABLET 500 MG PO (20:13)
[2024-09-20] MEDS: TEMAZEPAM 15 MG CAPSULE PO (20:13)
[2024-09-20] MEDS: ENOXAPARIN SODIUM 40 MG/0.4 ML SYRINGE SUBQ (20:13)
[2024-09-21] VITALS (9 sets, daily range): BP systolic 136–149; BP diastolic 64–76; PULSE 87–103; TEMP 36.3–36.8; O2SAT 91–97
[2024-09-21] MEDS: IPRATROPIUM/ALBUTEROL SULFATE 3 ML AMPUL.NEB IH ×4 (04:00→22:40)
[2024-09-21] MEDS: METHYLPREDNISOLONE SOD SUCC PF 40 MG/ML VIAL IVP ×3 (04:51→20:36)
[2024-09-21 06:08] LABS: Basophils Percent Auto 0.1 % (0.2-2.0); Hematocrit 32.6 % (36.0-48.0); Hemoglobin 9.5 g/dL (12.0-16.0); Immature Granulocytes Abs Auto 0.08 10^3/uL (0.00-0.03); Immature Granulocytes Pct Auto 0.6 % (0.0-0.5); Lymphocytes Percent Auto 6.8 % (20.5-60.0); Mean Corpuscular HGB Conc 29.1 g/dL (29.9-35.2); Mean Corpuscular Hemoglobin 23.3 pg (26.7-34.0); Mean Corpuscular Volume 79.9 fL (81.0-99.0); Mean Platelet Volume 8.5 fL (9.5-13.5); Monocytes Absolute Auto 0.4 10^3/uL (0.3-0.8); Monocytes Percent Auto 2.7 % (1.7-12.0); Neutrophils Absolute Auto 12.8 10^3/uL (1.4-6.5); Neutrophils Percent Auto 89.8 % (43.0-75.0); Platelet Count 299 10^3/uL (150-450); Red Blood Count 4.08 10^6/uL (4.20-5.40); Red Cell Distribution Width 21.7 % (11.0-15.0); White Blood Count 14.3 10^3/uL (4.0-11.0)
[2024-09-21 06:28] LABS: Alanine Aminotransferase 11 U/L (14-59); Albumin Globulin Ratio 0.6; Albumin Level 2.3 g/dL (3.4-5.0); Alkaline Phosphatase 93 U/L (46-116); Aspartate Amino Transferase 11 U/L (15-37); BUN Creatinine Ratio 20.2; Bilirubin Total 0.2 mg/dL (0.2-1.0); Calcium 8.9 mg/dL (8.5-10.1); Carbon Dioxide 27.2 mmol/L (21.0-32.0); Chloride 108 mmol/L (98-107); Estimated GFR (African America 56 (>=60 mL/min/1.73m^2); Estimated GFR (Non-African Ame 46 (>=60 mL/min/1.73m^2); Globulin 4.1 g/dL; Glucose 155 mg/dL (74-106); Potassium 4.2 mmol/L (3.5-5.1); Sodium 142 mmol/L (136-145); Total Protein 6.4 g/dL (6.4-8.2)
[2024-09-21] MEDS: PREGABALIN 75 MG CAPSULE PO ×2 (09:37→20:36)
[2024-09-21] MEDS: CHOLECALCIFEROL (VITAMIN D3) 25 MCG/1,000 UNITS TABLET 50 MCG PO (09:38)
[2024-09-21] MEDS: GUAIFENESIN 600 MG TAB.ER.12H PO ×2 (09:38→20:36)
[2024-09-21] MEDS: BUDESONIDE 0.5 MG/2 ML AMPULE NEB IH ×2 (10:30→22:40)
--- NOTE | 2024-09-21 10:34 | RESP.RT ---
Pt wears 2L at home
--- NOTE | 2024-09-21 10:42 | CM.NOTE ---
Rounds made with Dr. Quintero. Dr. Quintero orders CXR for today due to short of breath. No plan for discharge today.
--- NOTE | 2024-09-21 10:43 | XR_ITS ---
The [address] [address] Patient Name: GERA PERDUE MRN: [id number] date: 1945 Sex: F Assigned Patient Location: [place] Current Patient Location: [place] Accession/Order Number: [id number] Exam Date: 09/21/2024 10:50 Report Date: 09/21/2024 11:22 At the request of: SHAIKH FAVIO Procedure: XR chest 1V EXAMINATION: XR chest 1V HISTORY: sob COMPARISON: XR chest 09/19/2024, 08/14/2024, 09/22/2023 FINDINGS: LUNGS: Underexpanded lungs with chronic mild opacity within lateral left lung base favoring a pericardial fat pad.. VASCULATURE: No increased pulmonary vasculature. PLEURA: No pneumothorax, effusion, or pleural thickening. CARDIAC: No cardiomegaly or cardiac silhouette abnormality. MEDIASTINUM: No visible mass or adenopathy. BONES: No fracture or visible bone lesion. OTHER: Negative. XR/XR chest 1V IMPRESSION: 1. No appreciable acute cardiac pulmonary process. Stable chest. Electronically authenticated by: STEVIE BARTH Date: 09/21/2024 11:22
--- NOTE | 2024-09-21 10:43 | PM.IMPN1 ---
Progress Note: A&P Assessment and Plan (1) Acute exacerbation of chronic obstructive pulmonary disease: Assessment and Plan: Considerably dyspneic and was noted to be tachypneic with labored breathing/audible wheezing after pariticipating in PT. C/w solumedrol, duonebs. Monitor closely Repeat CXR. (2) Pneumonia: Assessment and Plan: RLL PNA on CTA. Received Levaquin in ED on 09/19/24 Currently on rocephin/ Azithromycin Repeat CXR as patient was considerably short of breath with labored breathing. Qualifiers: Laterality: right Lung location: lower lobe of lung Pneumonia type: due to unspecified organism Qualified Code(s): J18.9 - Pneumonia, unspecified organism (3) Chronic respiratory failure with hypoxia: Assessment and Plan: Monitor closely. On 3 L O2. She is still dyspneic at rest but not in resp distress anymore. (4) Thoracolumbar back pain: Assessment and Plan: PT eval. Pain control with combination of oral/IV naroctics. (5) Elevated d-dimer: Assessment and Plan: CTA - negative for PE. (6) HTN (hypertension): Assessment and Plan: Monitor BP. Qualifiers: Hypertension type: primary hypertension Qualified Code(s): I10 - Essential (primary) hypertension Internal Medicine - PN: Subj Subjective Interval history: Seen and examined. Patient had just worked with PT when I evaluated her and she was tachypneic, dyspneic with audible wheezing. No overnight events. Exam Constitutional Vital Signs, click to edit/add: Last Vital Signs Temp 97.4 F L 09/21/24 09:34 Pulse 90 09/21/24 09:34 Resp 24 H 09/21/24 09:34 BP 139/71 09/21/24 09:34 Pulse Ox 91 L 09/21/24 09:34 O2 Del Method Nasal Cannula 09/21/24 09:34 O2 Flow Rate 2 09/21/24 09:34 Documenting provider has reviewed patient's vital signs: yes Common normals: oriented x3 General appearance: cooperative, ill appearing and frail appearing Eye Common normals: conjunctivae normal and no scleral icterus Conjunctiva: conjunctiva(e) normal Respiratory Effort & inspection: tachypneic, labored and audible wheezes Auscultation: wheezes expiratory wheezes, inspiratory wheezes and throughout Other: Labored breathing at the time of evaluation. Could not talk due to SOB, wheezing and cough. Cardio Common normals: regular rate, S1 normal heart sound and S2 normal heart sound Rate: regular rate Heart sounds: S1 normal and S2 normal GI Common normals: soft to palpation, non-tender and no hepatosplenomegaly Palpation: hernia ventral Extremity Common normals: no clubbing, cyanosis or edema Neuro Common normals: oriented x3, moves all extremities and no focal motor deficits Psych Common normals: mental status grossly normal, denies hallucinations, denies homicidal ideation and denies suicidal ideation Internal Medicine - PN: Obj Da Labs Labs: Laboratory Results - last 24 hr 09/21/24 05:49 WBC 14.3 H RBC 4.08 L Hgb 9.5 L Hct 32.6 L MCV 79.9 L MCH 23.3 L MCHC 29.1 L RDW 21.7 H Plt Count 299 MPV 8.5 L Neut % (Auto) 89.8 H Lymph % (Auto) 6.8 L [place] % (Auto) 2.7 Eos % (Auto) 0.0 L Baso % (Auto) 0.1 L Neut # (Auto) 12.8 H Lymph # (Auto) 1.0 L [place] # (Auto) 0.4 Eos # (Auto) 0.0 Baso # (Auto) 0.0 Abs Immat Gran (auto) 0.08 H Imm/Tot Granulo (auto) 0.6 H Sodium 142 Potassium 4.2 Chloride 108 H Carbon Dioxide 27.2 Anion Gap 11.0 BUN 23.0 H Creatinine 1.14 H Est GFR ( Amer) 56 L Est GFR (Non-Af Amer) 46 L BUN/Creatinine Ratio 20.2 Glucose 155 H Calcium 8.9 Total Bilirubin 0.2 AST 11 L ALT 11 L Alkaline Phosphatase 93 Total Protein 6.4 Albumin 2.3 L Globulin 4.1 Albumin/Globulin Ratio 0.6
[2024-09-21] MEDS: CEFTRIAXONE 1,000 MG in 0.9 % SODIUM CHLORIDE 50 ML 100 MG IV (11:06)
[2024-09-21] MEDS: FLU VACC QS2024(65UP)/MF59C/PF 60 MCG/0.5 ML SYRINGE IM (11:57)
--- NOTE | 2024-09-21 12:13 | SWNOTE1 ---
SW met with pt to discuss dc needs. Pt lives at home with her daughter and grand-daughter. Pt uses a rollator at home. She has a ramp to get in to the home. Pt voiced she has home oxygen, 3 liters, thru [employer] (which is now [employer]). Pt also stated she has [employer] services and they assist with pulls ups at home. Pt voiced her family helps care for her. She stated she goes to day care - and she loves it. Her family picks her up after work. SW and pt spoke about home health services. She voiced she used to have it, but could not remember the company. She is agreeable to have them come in again. SW will have to find company that is in network with her insurance. SW to call oxygen company to see what she wears at home at her baseline. Referral sent to [address] Referral included face sheet, ED note, H&P, provider notes, case management report, and PT/OT notes.
--- NOTE | 2024-09-21 12:18 | SWNOTE1 ---
Important Message from [employer] reviewed and discussed with patient. Pt. verbalized understanding and signed the form. Original given to patient and copy placed in patient?s chart.
--- NOTE | 2024-09-21 14:18 | SWNOTE1 ---
SW received call from [address] and they are able to accept.
--- NOTE | 2024-09-21 14:18 | SWNOTE1 ---
[facility] will start care on 09/23/24, if pt is discharged on 09/22. SW also called [facility] [employer] and pt's oxygen script is for 3 liters of oxygen continuous.
[2024-09-21] MEDS: AZITHROMYCIN 250 MG TABLET 500 MG PO (20:36)
[2024-09-21] MEDS: TEMAZEPAM 15 MG CAPSULE PO (20:36)
[2024-09-21] MEDS: ENOXAPARIN SODIUM 40 MG/0.4 ML SYRINGE SUBQ (20:36)
[2024-09-21] MEDS: ACETAMINOPHEN 325 MG TABLET 650 MG PO (20:37)
[2024-09-21] MEDS: OXYCODONE HCL 5 MG TABLET PO (20:52)
[2024-09-22] VITALS (8 sets, daily range): BP systolic 135–158; BP diastolic 49–71; PULSE 86–101; TEMP 36.4–36.8; O2SAT 90–98
[2024-09-22] MEDS: IPRATROPIUM/ALBUTEROL SULFATE 3 ML AMPUL.NEB IH ×4 (04:03→23:54)
[2024-09-22] MEDS: METHYLPREDNISOLONE SOD SUCC PF 40 MG/ML VIAL IVP ×3 (04:16→20:23)
[2024-09-22 06:28] LABS: Basophils Percent Auto 0.1 % (0.2-2.0); Hematocrit 32.8 % (36.0-48.0); Hemoglobin 9.9 g/dL (12.0-16.0); Immature Granulocytes Abs Auto 0.15 10^3/uL (0.00-0.03); Immature Granulocytes Pct Auto 1.3 % (0.0-0.5); Lymphocytes Percent Auto 8.6 % (20.5-60.0); Mean Corpuscular HGB Conc 30.2 g/dL (29.9-35.2); Mean Corpuscular Hemoglobin 24.1 pg (26.7-34.0); Mean Corpuscular Volume 79.8 fL (81.0-99.0); Mean Platelet Volume 8.6 fL (9.5-13.5); Monocytes Absolute Auto 0.4 10^3/uL (0.3-0.8); Neutrophils Absolute Auto 10.3 10^3/uL (1.4-6.5); Platelet Count 314 10^3/uL (150-450); Red Blood Count 4.11 10^6/uL (4.20-5.40); Red Cell Distribution Width 21.8 % (11.0-15.0); White Blood Count 11.8 10^3/uL (4.0-11.0)
[2024-09-22 06:41] LABS: Alanine Aminotransferase 23 U/L (14-59); Albumin Globulin Ratio 0.6; Albumin Level 2.3 g/dL (3.4-5.0); Alkaline Phosphatase 98 U/L (46-116); Anion Gap 11.2; Aspartate Amino Transferase 16 U/L (15-37); BUN Creatinine Ratio 25.7; Bilirubin Total 0.2 mg/dL (0.2-1.0); Calcium 8.9 mg/dL (8.5-10.1); Carbon Dioxide 27.9 mmol/L (21.0-32.0); Chloride 109 mmol/L (98-107); Estimated GFR (African America >60 (>=60 mL/min/1.73m^2); Estimated GFR (Non-African Ame 51 (>=60 mL/min/1.73m^2); Globulin 4.1 g/dL; Glucose 148 mg/dL (74-106); Potassium 4.1 mmol/L (3.5-5.1); Sodium 144 mmol/L (136-145); Total Protein 6.4 g/dL (6.4-8.2)
[2024-09-22] MEDS: 0.9 % SODIUM CHLORIDE 250 ML 10 ML IV (08:57)
[2024-09-22] MEDS: CEFTRIAXONE 1,000 MG in 0.9 % SODIUM CHLORIDE 50 ML 100 MG IV (08:58)
[2024-09-22] MEDS: GUAIFENESIN 600 MG TAB.ER.12H PO ×2 (08:59→20:23)
[2024-09-22] MEDS: PREGABALIN 75 MG CAPSULE PO ×2 (08:59→20:23)
[2024-09-22] MEDS: CHOLECALCIFEROL (VITAMIN D3) 25 MCG/1,000 UNITS TABLET 50 MCG PO (08:59)
--- NOTE | 2024-09-22 09:46 | PM.IMPN1 ---
Progress Note: A&P Assessment and Plan (1) Acute exacerbation of chronic obstructive pulmonary disease: Assessment and Plan: Overall improved but still has generalized wheezing and dyspnea on minimal exertion. Slowly improving. C/w solumedrol, duonebs. Monitor closely (2) Pneumonia: Assessment and Plan: RLL PNA on CTA. 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 Added OPEP Qualifiers: Laterality: right Lung location: lower lobe of lung Pneumonia type: due to unspecified organism Qualified Code(s): J18.9 - Pneumonia, unspecified organism (3) Chronic respiratory failure with hypoxia: Assessment and Plan: Monitor closely. On 3 L O2. She is still dyspneic on minimal exertion. Feeling a little better compared to yesterday. (4) Thoracolumbar back pain: Assessment and Plan: PT eval. Pain control with combination of oral/IV naroctics. (5) Elevated d-dimer: Assessment and Plan: CTA - negative for PE. (6) HTN (hypertension): Assessment and Plan: Monitor BP. Qualifiers: Hypertension type: primary hypertension Qualified Code(s): I10 - Essential (primary) hypertension Internal Medicine - PN: Subj Subjective Interval history: Seen and examined. Doing better today. Reports cough and shortness of breath on minimal exertion. Still has generalized wheezing but it has improved overall from yesterday. Exam Constitutional Vital Signs, click to edit/add: Last Vital Signs Temp 97.6 F 09/22/24 04:19 Pulse 86 09/22/24 04:19 Resp 20 09/22/24 04:19 BP 158/71 H 09/22/24 04:19 Pulse Ox 96 09/22/24 04:19 O2 Del Method Nasal Cannula 09/22/24 04:19 O2 Flow Rate 2 09/22/24 04:19 Documenting provider has reviewed patient's vital signs: yes Common normals: oriented x3 General appearance: cooperative, ill appearing and frail appearing Respiratory Effort & inspection: able to speak in complete sentences and tachypneic Auscultation: wheezes expiratory wheezes, inspiratory wheezes and throughout Other: Coarse breath sounds. Improved air entry. Cardio Common normals: regular rate, S1 normal heart sound and S2 normal heart sound Rate: regular rate Heart sounds: S1 normal and S2 normal Extremity Common normals: no clubbing, cyanosis or edema Neuro Common normals: oriented x3, moves all extremities and no focal motor deficits Psych Common normals: mental status grossly normal, denies hallucinations, denies homicidal ideation and denies suicidal ideation Internal Medicine - PN: Obj Da Labs Labs: Laboratory Results - last 24 hr 09/22/24 06:07 WBC 11.8 H RBC 4.11 L Hgb 9.9 L Hct 32.8 L MCV 79.8 L MCH 24.1 L MCHC 30.2 RDW 21.8 H Plt Count 314 MPV 8.6 L Neut % (Auto) 87.0 H Lymph % (Auto) 8.6 L [place] % (Auto) 3.0 Eos % (Auto) 0.0 L Baso % (Auto) 0.1 L Neut # (Auto) 10.3 H Lymph # (Auto) 1.0 L [place] # (Auto) 0.4 Eos # (Auto) 0.0 Baso # (Auto) 0.0 Abs Immat Gran (auto) 0.15 H Imm/Tot Granulo (auto) 1.3 H Sodium 144 Potassium 4.1 Chloride 109 H Carbon Dioxide 27.9 Anion Gap 11.2 BUN 27.0 H Creatinine 1.05 H Est GFR ( Amer) >60 Est GFR (Non-Af Amer) 51 L BUN/Creatinine Ratio 25.7 Glucose 148 H Calcium 8.9 Total Bilirubin 0.2 AST 16 ALT 23 Alkaline Phosphatase 98 Total Protein 6.4 Albumin 2.3 L Globulin 4.1 Albumin/Globulin Ratio 0.6
[2024-09-22] MEDS: ACETAMINOPHEN 325 MG TABLET 650 MG PO (09:52)
--- NOTE | 2024-09-22 09:53 | SWNOTE1 ---
No discharge today, [facility] know.
--- NOTE | 2024-09-22 09:54 | CM.NOTE ---
Rounds made with Dr. Quintero. No plan for discharge today.
--- NOTE | 2024-09-22 10:17 | REH.PTDLY ---
Physical Therapy Daily Note PT Daily Note/Assess Start: 09/22/24 10:09 Freq: Status: Active Protocol: Document 09/22/24 10:09 ABEBE (Rec: 09/22/24 10:17 ABEBE [id number]) Physical Therapy Daily Note/Assessment Time In 09:31 Time Out 09:58 Pain Level 8 Subjective Pt in chair upon arrival, reports already working with OT. Would like to go for a walk. States her R mid back pain is an 8/10. Pt on 2 L of O2 Therapeutic Exercise Minutes (minutes) 8 Therapeutic Exercise Units 1 Therapeutic Exercise Treatment Pt at 92% SpO2 prior to activity on 2 L of O2. Instructed in B LE seated exs 10-15x ea for improved strength for ease of mobility. Pt performs HR/TR, hip add squeeze, LAQ, marching, and hip IR/ER. Therapeutic Activity Minutes (minutes) 16 Therapeutic Activity Units 1 Therapeutic Activity Comments Pt performs sit to stand transfer from chair CGA. Gait training with RW CGA with cues for pt to stay closer to RW. Pt needs to use restroom, ambulating 20 feet there. Cues for pt to use grab bar for safety with toilet transfers. Pt stood statically for 2 mins x2 needing assist for self care after using restroom. Performs a total of 3 sit to stands from toilet during rx. Gait training another 20 feet back to chair with RW. Pt is SOB and cues to keep RW on floor and for breathing as she is rushing to get back to chair. Pt is at 86% on 2 L of O2, nursing in room and increased O2 to 3L as this is what pt wears at home. Pt increases to 92% within 2 mins Total Therapy Minutes 24 Total Physical Therapy Units 2 Daily Note Summary Pt fatigued and SOB post rx with O2 dropping on 2L of O2, nursing increased to 3L with quicker recovery. Pt reports pain is still 8/10 in R flank/ thoracic region. Pt needs assistance with self care when using restroom and cues for safety with gait.
--- NOTE | 2024-09-22 10:24 | SWNOTE1 ---
SW sent physician note from today and PT/OT note from today to [address]
[2024-09-22] MEDS: BUDESONIDE 0.5 MG/2 ML AMPULE NEB IH ×2 (11:42→23:54)
--- NOTE | 2024-09-22 12:41 | SWNOTE1 ---
[facility] will see patient starting Saturday09/25/24.
[2024-09-22] MEDS: OXYCODONE HCL 5 MG TABLET PO (16:38)
[2024-09-22] MEDS: AZITHROMYCIN 250 MG TABLET 500 MG PO (20:23)
[2024-09-22] MEDS: ENOXAPARIN SODIUM 40 MG/0.4 ML SYRINGE SUBQ (20:27)
[2024-09-22] MEDS: TEMAZEPAM 15 MG CAPSULE PO (21:02)
[2024-09-23] MEDS: METHYLPREDNISOLONE SOD SUCC PF 40 MG/ML VIAL IVP (04:33)
[2024-09-23 05:38] VITALS: BP 163/76; PULSE 93; TEMP 36.6; O2SAT 93
[2024-09-23 05:54] VITALS: PULSE 97; O2SAT 96
[2024-09-23] MEDS: IPRATROPIUM/ALBUTEROL SULFATE 3 ML AMPUL.NEB IH ×2 (05:55→11:00)
[2024-09-23 06:12] LABS: Basophils Percent Auto 0.2 % (0.2-2.0); Hematocrit 33.8 % (36.0-48.0); Hemoglobin 10.1 g/dL (12.0-16.0); Immature Granulocytes Pct Auto 2.6 % (0.0-0.5); Lymphocytes Absolute Auto 1.2 10^3/uL (1.2-3.8); Lymphocytes Percent Auto 10.3 % (20.5-60.0); Mean Corpuscular HGB Conc 29.9 g/dL (29.9-35.2); Mean Corpuscular Hemoglobin 23.8 pg (26.7-34.0); Mean Corpuscular Volume 79.5 fL (81.0-99.0); Mean Platelet Volume 8.7 fL (9.5-13.5); Monocytes Absolute Auto 0.7 10^3/uL (0.3-0.8); Monocytes Percent Auto 6.1 % (1.7-12.0); Neutrophils Absolute Auto 9.5 10^3/uL (1.4-6.5); Neutrophils Percent Auto 80.8 % (43.0-75.0); Platelet Count 336 10^3/uL (150-450); Red Blood Count 4.25 10^6/uL (4.20-5.40); White Blood Count 11.8 10^3/uL (4.0-11.0)
[2024-09-23 06:27] LABS: Alanine Aminotransferase 22 U/L (14-59); Albumin Globulin Ratio 0.6; Albumin Level 2.3 g/dL (3.4-5.0); Alkaline Phosphatase 107 U/L (46-116); Anion Gap 12.4; Aspartate Amino Transferase 12 U/L (15-37); BUN Creatinine Ratio 23.4; Bilirubin Total 0.2 mg/dL (0.2-1.0); Calcium 9.1 mg/dL (8.5-10.1); Carbon Dioxide 27.4 mmol/L (21.0-32.0); Chloride 110 mmol/L (98-107); Estimated GFR (African America >60 (>=60 mL/min/1.73m^2); Estimated GFR (Non-African Ame 50 (>=60 mL/min/1.73m^2); Globulin 4.1 g/dL; Glucose 178 mg/dL (74-106); Potassium 3.8 mmol/L (3.5-5.1); Sodium 146 mmol/L (136-145); Total Protein 6.4 g/dL (6.4-8.2)
[2024-09-23] MEDS: GUAIFENESIN 600 MG TAB.ER.12H PO (08:31)
[2024-09-23] MEDS: PREGABALIN 75 MG CAPSULE PO (08:31)
[2024-09-23] MEDS: CEFTRIAXONE 1,000 MG in 0.9 % SODIUM CHLORIDE 50 ML 100 MG IV (08:32)
[2024-09-23] MEDS: CHOLECALCIFEROL (VITAMIN D3) 25 MCG/1,000 UNITS TABLET 50 MCG PO (08:32)
[2024-09-23] MEDS: ACETAMINOPHEN 325 MG TABLET 650 MG PO (08:32)
--- NOTE | 2024-09-23 09:59 | P.DS_ITS ---
DS: Providers Provider Date of admission: 09/19/24 14:35 Primary care physician: AMOS SALAS Admitting clinician: Shaikh Ingrid Attending physician on admission: Shaikh Ingrid Consults: 09/19/24 14:19 Physical Therapy Eval and Treat Routine Reason for consultation: Ambulatory dysfunction/weakness 09/21/24 Occupational Therapy Eval and Treat Routine Reason for consultation: therapy Has provider been notified: Yes Attending physician on discharge: Shaikh Ingrid Discharging clinician: Shaikh Ingrid Anticipated date of discharge: 09/23/24 DS: Diagnosis Discharge Diagnosis (1) Acute exacerbation of chronic obstructive pulmonary disease: (2) Pneumonia: Qualifiers: Laterality: right Lung location: lower lobe of lung Pneumonia type: due to unspecified organism Qualified Code(s): J18.9 - Pneumonia, unspecified organism (3) Chronic respiratory failure with hypoxia: (4) Thoracolumbar back pain: (5) Elevated d-dimer: (6) HTN (hypertension): Qualifiers: Hypertension type: primary hypertension Qualified Code(s): I10 - Essential (primary) hypertension DS: Summary Hospital Course Hospital Course: 78 y o female with hx of chronic resp failure with hypoxia on 3 L and COPD, presented to ED with 7 day hx of progressively worsening SOB, wheezing and productive cough. Upon ROS, patient also reports poor appetite and decreased PO intake. Along with respiratory symptoms, she also has midline back pain extending all the way from thoracic to lumbar region with no radiculopathy or weakness/numbness. Patient was tachypneic, with labored breathing and was using accessory muscles of respiration upon admission. Patient was admitted for COPD exacerbation sec to RLL PNA noted on CTA. While her oxygen requirement stayed at its baseline, she continued to have SOB at rest, with labored breathing, especially after minimal exertion and required close monitoring and aggressive treatment. Patient was treated with IV Solumedrol, IV rocephin/azithromycin and inhaled duonebs. She slowly improved during the course of admission and today feels well. She still has sig cough and mild wheezing on exam along with mild shortness of breath on exertion but she has improved considerably and is stable for discharge to finish her treatment course for PNA and COPD. Patient educated on worrisome signs and symptoms that should prompt her to seek care in ED. She will need f/u with PCP in one week. Status at Discharge Functional status at discharge: uses cane/walker Overall status at discharge: patient is progressing back to baseline Time Spent with Patient Time attestation: Total time spent providing and/or coordinating discharge services: Time spent: greater than 30 minutes Exam Constitutional Vital Signs, click to edit/add: Last Vital Signs Temp 97.9 F 09/23/24 05:38 Pulse 97 H 09/23/24 05:54 Resp 20 09/23/24 05:54 BP 163/76 H 09/23/24 05:38 Pulse Ox 96 09/23/24 05:54 O2 Del Method Nasal Cannula 09/23/24 05:54 O2 Flow Rate 3 09/23/24 05:54 Documenting provider has reviewed patient's vital signs: yes Common normals: oriented x3 General appearance: cooperative and frail appearing Respiratory Effort & inspection: able to speak in complete sentences Auscultation: wheezes expiratory wheezes Other: Coarse breath sounds. Improved air entry. No respiratory distress. Normal RR. Cardio Common normals: regular rate, S1 normal heart sound and S2 normal heart sound Rate: regular rate Heart sounds: S1 normal and S2 normal Extremity Common normals: no clubbing, cyanosis or edema Neuro Common normals: oriented x3, moves all extremities and no focal motor deficits Psych Common normals: mental status grossly normal, denies hallucinations, denies homicidal ideation and denies suicidal ideation DS: Data Data Completed and Pending Labs on day of discharge: Labs from last 24 hours 09/23/24 05:50 WBC 11.8 H RBC 4.25 Hgb 10.1 L Hct 33.8 L MCV 79.5 L MCH 23.8 L MCHC 29.9 RDW 22.0 H Plt Count 336 MPV 8.7 L Neut % (Auto) 80.8 H Lymph % (Auto) 10.3 L [place] % (Auto) 6.1 Eos % (Auto) 0.0 L Baso % (Auto) 0.2 Neut # (Auto) 9.5 H Lymph # (Auto) 1.2 [place] # (Auto) 0.7 Eos # (Auto) 0.0 Baso # (Auto) 0.0 Abs Immat Gran (auto) 0.30 H Imm/Tot Granulo (auto) 2.6 H Sodium 146 H Potassium 3.8 Chloride 110 H Carbon Dioxide 27.4 Anion Gap 12.4 BUN 25.0 H Creatinine 1.07 H Est GFR ( Amer) >60 Est GFR (Non-Af Amer) 50 L BUN/Creatinine Ratio 23.4 Glucose 178 H Calcium 9.1 Total Bilirubin 0.2 AST 12 L ALT 22 Alkaline Phosphatase 107 Total Protein 6.4 Albumin 2.3 L Globulin 4.1 Albumin/Globulin Ratio 0.6 Preliminary micro results at discharge 09/19/24 12:23 Blood Culture Result 2 - Preliminary Blood NO GROWTH AT 36-48 HOURS. FINAL TO FOLLOW. 09/19/24 12:22 Blood Culture Result 1 - Preliminary Blood NO GROWTH AT 36-48 HOURS. FINAL TO FOLLOW. Discharge Plan Discharge Disposition: Home Health Service Condition: Fair Discharge Medications: New cefdinir 300 mg capsule 300 mg PO BID 5 Days Qty: 10 0RF prednisone 20 mg tablet 20 mg PO DAILY Qty: 20 0RF Rx Instructions: 3 TABX 3 DAYS, 2 TAB X 3 DAYS, 1 TAB X 3 DAYS, 1/2 TAB X 4 DAYS benzonatate 100 mg capsule 100 mg PO BID PRN (Reason: cough) Qty: 20 0RF Continued albuterol sulfate 90 mcg/actuation HFA aerosol inhaler 2 puff INHALATION Q4H PRN (Reason: shortness of breath or wheezing) pregabalin 75 mg capsule 75 mg PO BID cholecalciferol (vitamin D3) 50 mcg (2,000 unit) tablet 50 mcg PO DAILY melatonin 5 mg tablet 5 mg PO QPM Trelegy Ellipta 100-62.5-25 mcg blister with device 1 inh INHALATION QAM Activity: increase activity as tolerated Diet: advance to your usual diet Print Language: Pashto Audiology Doctor/Mobile Product Manager Instructions: Med 1 [facility], plan is for start of care to be 09/25/24. Phone number is [phone] Forms: Portal Instructions Follow Up Appointments: follow up with PCP in one week
--- NOTE | 2024-09-23 10:15 | SWNOTE1 ---
Pt is discharging today. SW sent over dc med rec, dc summary, and CRF to [address] They plan on starting care on Saturday and pt is aware.
--- NOTE | 2024-09-23 10:42 | REH.PTDLY ---
Physical Therapy Daily Note PT Daily Note/Assess Start: 09/22/24 10:09 Freq: Status: Active Protocol: Document 09/23/24 09:45 ABEBE (Rec: 09/23/24 10:42 ABEBE [id number]) Physical Therapy Daily Note/Assessment Time In 09:29 Time Out 09:45 Subjective Pt wanting to get up into chair with aide upon arrival. VIDEO TECHNICIAN took over care. Therapeutic Exercise Minutes (minutes) 5 Therapeutic Exercise Units 0 Therapeutic Exercise Treatment Instructed in B LE seated exs 15x ea to improve strength for ease of transfers and gait. Therapeutic Activity Minutes (minutes) 10 Therapeutic Activity Units 1 Bed Mobility Ability Contact Guard Assist Chair Transfer Ability Contact Guard Assist Therapeutic Activity Comments Supine to sit transfers performed CGA. Sit to stand transfers CGA. Gait training into restroom 20 feet with 3 L of O2 with several cues for pt to slow down to not get entangled in O2 and IV. Cues with transferring onto toilet for pt to use grab bar on wall for safety. Pt requires assistance with self care once done using the restroom. Stood for 5 mins total with this and washing of hands. Ambulated another 20 feet with RW to chair. Total Therapy Minutes 15 Total Physical Therapy Units 1 Daily Note Summary Pt wants to go home with HH at [place]. Pt does well with gait and transfers, however does require assistance when using restroom for pericare.
[2024-09-23] MEDS: BUDESONIDE 0.5 MG/2 ML AMPULE NEB IH (11:00)
[2024-09-23 11:03] VITALS: PULSE 93; O2SAT 97
--- NOTE | 2024-09-23 13:39 | PC.NURSE ---
Clamshell Engineer went over discharge paperwork with daughter. She brought in patient's portable oxygen but it was not charged. Clamshell Engineer offered to give them a tank to go home with as long as they brought it back. Daughter refuses, says they only live 10 minutes away and she will be fine. Clamshell Engineer continued to encourage taking our oxygen as patient has been needing 3L continuous oxygen and drops while moving from chair or any ambulation. Patient and daughter both refuse and say she will be fine.
--- NOTE | 2024-09-25 13:45 | CM.DCFOLLOWU ---
1st attempt 09/25/24, no answer
== END 2024-09-23 13:38 | disposition home health service (06) | DRG 190 ==
LOC: ER 12:58 → MS 14:20
PROVIDERS: Admitting Provider Internal Medicine; Emergency Provider Emergency Medicine; PCP Internal Medicine; Visit Provider Internal Medicine
DX: J44.1 Chronic obstructive pulmonary disease with (acute) exacerbation (principal); J18.9 Pneumonia, unspecified organism; J96.11 Chronic respiratory failure with hypoxia; I10 Essential (primary) hypertension; Z99.81 Dependence on supplemental oxygen; M54.6 Pain in thoracic spine; M54.50 Low back pain, unspecified; R79.1 Abnormal coagulation profile; J44.0 Chronic obstructive pulmonary disease with (acute) lower respiratory infection; E78.5 Hyperlipidemia, unspecified; G47.33 Obstructive sleep apnea (adult) (pediatric); Z66 Do not resuscitate; K43.9 Ventral hernia without obstruction or gangrene; Z98.890 Other specified postprocedural states; Z87.891 Personal history of nicotine dependence; Z79.899 Other long term (current) drug therapy; Z20.822 Contact with and (suspected) exposure to COVID-19
CPT/HCPCS: 36415; 71045; 71275; 80048; 80053; 83605; 84484; 85025; 85378; 87040; 87804; 87811; 90662; 93005; 94640; 94667; 94668; 94761; 96365; 96375; 97110; 97161; 97165; 97530; 97535; 99285; J0696; J1650; J2270; J2919; Q9967

== ENCOUNTER 2024-10-01 19:25 | Emergency (ER) | payer MEDICARE, MEDICAID, SELFPAY ==
[2024-10-01 19:28] VITALS: BP 211/107; PULSE 85; TEMP 36.5; O2SAT 95; BMI 37.1
--- NOTE | 2024-10-01 19:41 | CT_ITS ---
The [address] [address] Patient Name: GERA PERDUE MRN: [id number] date: 1945 Sex: F Assigned Patient Location: ER Current Patient Location: Accession/Order Number: [id number] Exam Date: 10/01/2024 20:05 Report Date: 10/01/2024 21:30 At the request of: BING POND Procedure: CT lumbar spine wo con CT LUMBOSACRAL SPINE WITHOUT CONTRAST HISTORY: Lower back pain. COMPARISON: None. TECHNIQUE: Thin section axial CT of the lumbar spine was performed from T11-12 to S2-3 vertebral bodies without contrast. Thin section sagittal and coronal reconstructed images were performed from the axial data set Dose reduction techniques were achieved by using automated exposure control and/or adjustment of mA and/or kV according to patient size and/or use of iterative reconstruction technique. CONTRAST: None. FINDINGS: There are no fractures or dislocations. Normal height of the included lower thoracic and lumbosacral vertebrae. Endplates are intact without erosion or destruction. No lytic or blastic bone lesion. There is extensive osseous demineralization suspected osteoporosis. Atherosclerotic calcific plaque throughout wall of normal caliber aorta and iliac arteries. CT abdomen and pelvis obtained the same day dictated separately. Several nonobstructing calculi seen in calyces of left kidney and anterior mid upper pole and lateral midpole. No hydronephrosis. Please see abdominal CT study dictated separately. Otherwise, imaged retroperitoneal and paraspinal soft tissues and prevertebral soft tissues are otherwise negative. 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 There is a preserved disc height at T11-12, T12-L1 levels with minor anterior endplate spondylosis but no central canal or neural foraminal narrowing. Moderate bilateral facet arthropathy at T12-L1. L1-2: Anterior endplate spondylosis. Mild bilateral facet arthropathy. No significant central canal or neural foraminal narrowing. Preserved disc height without bulge or herniation. L2-3: Preserved disc height. Minor annular disc bulge. Moderate bilateral facet arthropathy and mild ligamentum flavum hypertrophy. Posterior epidural lipomatosis. No significant central canal or neural foraminal narrowing. L3-4: Preserved disc height. Severe bilateral facet arthropathy and ligamentum flavum hypertrophy with posterior epidural lipomatosis. Results in at least mild to moderate canal stenosis. Moderate to severe right and moderate left neural foraminal narrowing. L4-5: Mild degenerative disc height loss with calcification of disc and mild anterior endplate spondylosis. Mild annular disc bulge. Mild facet arthropathy. No central canal narrowing. Endplate spondylosis resulting in moderate right and left neural foraminal narrowing. L5-S1: Degenerative disc height loss and anterior endplate spondylosis with mild facet arthropathy. Results in severe right and moderate left lateral recess stenosis with severe bilateral neural foraminal narrowing from intraforaminal disc osteophyte changes. No central canal stenosis. CT/CT lumbar spine wo con IMPRESSION: 1. No acute fracture or malalignment abnormality. 2. Multilevel degenerative changes of discs and endplates and facets contributing to mostly neural foraminal narrowing in the lumbar region. More prominent in the lower lumbar spine from L3-4 through L5-S1 and particularly at L5-S1. Correlate for affected nerve root symptoms. See above. 3. L5-S1 there is also right greater than left lateral recess narrowing. 4. Diffuse osseous demineralization suspected osteoporosis. 5. Several nonobstructing calculi in calyces left kidney with no obvious hydronephrosis or hydroureter. Electronically authenticated by: LANDY ESPINOZA Date: 10/01/2024 21:30
--- NOTE | 2024-10-01 19:42 | CT_ITS ---
The [address] [address] Patient Name: GERA PERDUE MRN: [id number] date: 1945 Sex: F Assigned Patient Location: ER Current Patient Location: ER Accession/Order Number: [id number] Exam Date: 10/01/2024 20:05 Report Date: 10/01/2024 21:23 At the request of: BING POND Procedure: CT abdomen pelvis wo con CT ABDOMEN PELVIS WITHOUT CONTRAST HISTORY: Left flank pain. Fell 2 days ago. COMPARISON: CT lumbar spine 10/01/2024, dictated separately. TECHNIQUE: Thin section axial CT images were obtained from the lung bases to the pubis symphysis. This CT exam was performed using one or more of the following dose reduction techniques: Automated exposure control, adjustment of the mA and/or kV according to patient size, or use of iterative reconstruction technique. Thin section coronal and sagittal images were reconstructed from the axial data set. All images were reviewed and interpreted. CONTRAST: None. FINDINGS: Assessment of solid organs, bowel and vasculature is limited without the benefit of IV contrast. There is slight motion artifact. LUNG BASES: The lung bases are clear. GE JUNCTION AND STOMACH: Negative. No hiatal hernia. LIVER: Negative. GALLBLADDER AND BILIARY TREE: Normal gallbladder. SPLEEN: Negative. PANCREAS: Negative. ADRENALS: Negative. RIGHT KIDNEY AND URETER: Negative. No urinary tract calculi or hydronephrosis. No renal masses or cysts are evident. LEFT KIDNEY AND URETER: Small punctate 1 to 2 mm size calculus anterior mid pole calyx left kidney with additional small 2 to 3 mm size calculus lateral lower pole calyx left kidney. No left hydronephrosis. No left ureteral calculus. No left renal mass or cyst. BOWEL LOOPS: There is a ventral abdominal wall hernia through [place] defect in the rectus fascia to the left of midline in region of umbilicus. Effect extends at least 7 cm transverse. There is herniation of some loops of both small large bowel to the anterior abdominal wall. This is not causing any acute bowel obstruction. No incarceration or strangulation is suggested. There is a moderate scattered colonic stool and large bowel. No enteritis or colitis. No significant obvious diverticulosis. APPENDIX: The appendix is not clearly identified and there are no secondary findings to suggest acute appendicitis. AORTA: Normal caliber aorta and iliac arteries. Scattered atherosclerotic calcific plaque throughout the wall of the aorta. IVC: Negative. LYMPH NODES: There is no lymphadenopathy. BLADDER: Normal bladder. BONES: ORIF hardware proximal left femur from radius fracture treatment. Osseous demineralization. There is a old anterior superior endplate fracture of T10 vertebrae. No acute fractures are seen. No lytic or blastic lesion. Degenerative and spondylotic changes in the lumbar spine. Please see CT lumbar spine study obtained today and dictated separately. COMMENTS: No ascites. No free air. Pelvic structures are unremarkable. CT/CT abdomen pelvis wo con IMPRESSION: 1. No acute hydronephrosis or acutely retained ureteral bladder calculus. 2. There are several small nonobstructing calculi in calyces of left kidney which is otherwise unremarkable. 3. Left anterior mid abdominal wall hernia containing some loops of small bowel and large bowel. No evidence of bowel obstruction or acute bowel pathology. 4. Nonspecific colonic stool retention. Correlate for constipation. 5. No acute bone or joint pathology. Electronically authenticated by: LANDY ESPINOZA Date: 10/01/2024 21:23
--- OUTSIDE RECORDS SUMMARY | 2024-10-01 19:52 | XMS_ITS | CCD ---
Author Organization [facility] Care Team Providers Care Director Of Casino Marketing Name Role Phone Mely Camarillo Unavailable Unavailable [...] Admit Provider MD Jolanta Mckenzie Attending Provider [phone] MD Jesus Alberto Aquino Attending Provider Dr. Charlie Mondragon II Attending Unavailable LAKSHMIPATHY ., NARENDRANATH Admitting Sahra vailable LAKSHMIPATHY ., NARENDRANATH Attending Sahra vailable DR SVITLANA HAMMOND Primary Care Unavailable DO Gustavo Salas Primary Care Provider Karen RAIL MANAGER- Kadie Beckford Emergency Provider DO Marshall Dominguez Emergency Provider [phone] MD Jolanta Mckenzie Admit Provider MD Jolanta Mckenzie Attending Provider [phone] DO Maury Morrissey Emergency Provider MD Jesus Alberto Aquino Admit Provider [phone] MD Jesus Alberto Aquino Attending Provider Vonthron HYDROMETALLURGICAL ENGINEER-PHARMACY MANAGER, Mely A Primary Care Provid er Gustavo Salas DO Primary Care Provider Aubrey METZ, Leah Unavailable [phone] Gustavo Salas DO Primary Care Provider [phone] GUSTAVO SALAS Primary Care Physician Unavail able JENNA ENGLE Referring Unavailable GUSTAVO SALAS Primary Care Unavailable DO Gustavo Salas Primary Care Provider MD Jenna Engle Attending Provider Karen [facility] Kadie Beckford Emergency Provider [phone] MD Lucho Grullon Admit Provider MD Lucho Grullon Attending Provider JENNA ENGLE Attending Unavailable GUSTAVO SALAS A Primary Care Unavailable JENNA ENGLE Attending Unavailable JENNA ENGLE Referring Unavailable GUSTAVO SALAS A Primary Care Unavailable MD Michoacano Mckenzie Attending Provider [phone] Renae Ponce Attending Unavailable GUSTAVO SALAS Referring Unavailable OrRenae schneider Attending Unavailable Orzech Renae X Admitting Unavailable MARIELA, RABBIA L [...] Unavailable VONTHRON, MELY A Primary Care Unavailable TITOKIM MARKELL Moody Referring Unavailable OOSTRA, CECELIA E Attending Unavailable OOSTRA, CECELIA E Referring Unavailable VONTHRON, MELY A Primary Care Unavailable OOSTRA, CECELIA E Attending Unavailable OOSTRA, CECELIA E Referring Unavailable VONTHRON, MELY A Primary Care Unavailable ASHLEY MOONEY K Attending Unavailable HEFREDERIC VARGHESENI K Referring Unavailable VONTHRON, MELY A Primary Care Unavailable JENNIFER MENA Attending Unavailable JENNIFER MENA Admitting Unavailable DAVID MOTTA Referring Unavailable VONTHRON, MELY A Primary Care Unavailable HYUN MORENO Consulting Unavailable ([facility] ONLY), NEURO-CONSULTING Consulting Sahra TACHO Aquino Consulting Unavailable JEANNETTE SMART Consulting Unavailable DEVONTE RODRIGUEZ Consulting Unavailable LEONCIO RÍOS Consulting Unavailable RELIEF, [facility] AND [...] Unavailable VONTHRON, MELY A Primary Care Unavailable MARITZA, GUSTAVO A Primary Care Unavailable RUDI ZELAYA Attending Unavailable [facility] ONLY, [facility] Consulting Unavailable RUDI ZELAYA Admitting Unavailable TALA MINOR Consulting Unavailable REGINA, BING ANWAR H Consulting Unavailable JANE, OVIDIO J Referring Unavailable MARITZA, GUSTAVO A Primary Care Unavailable LUCINDA, OVIDIO J Referring Unavailable MARITZA, GUSTAVO A Primary Care Unavailable LUCINDA, OVIDIO J Referring Unavailable MARITZA, GUSTAVO A Primary Care Unavailable GINNY BELCHER Attending Unavailable MARITZA GUSTAVO A Referring Unavailable MARITZA, GUSTAVO A Primary Care Unavailable VALONE JR, TODD L Referring Unavailable MARITZA, GUSTAVO A Primary Care Unavailable VALONE TODD CHAVEZ L Referring Unavailable MARITZA, GUSTAVO A Primary Care Unavailable VALONE JR, TODD L Referring Unavailable MARITZA, GUSTAVO A Primary Care Unavailable VALONE JR, TODD L Referring Unavailable MARITZA, GUSTAVO A Primary Care Unavailable MARITZA, GUSTAVO A Referring Unavailable MARITZA, GUSTAVO A Primary Care Unavailable HUFDHI, RAIED Referring Unavailable MARITZA, GUSTAVO A Primary Care Unavailable RESER, KEIKO VELASQUEZLE Referring Unavailabl e MARITZA, GUSTAVO A Primary Care Unavailable RESER, KEIKO REBECCA Referring Unavailabl e MARITZA, GUSTAVO A Primary Care Unavailable HUFDHI, RAIED Referring Unavailable MARITZA, GUSTAVO A Primary Care Unavailable HUFDHI, RAIED Referring Unavailable MARITZA, GUSTAVO A Primary Care Unavailable HUFDHI, RAIED Referring Unavailable MARITZA, GUSTAVO A Primary Care Unavailable JAMAL, NANYC Referring Unavailable MARITZA, GUSTAVO A Primary Care Unavailable KALYAN BARBOZA Attending Unavailable GUSTAVO SALAS Attending Unavailable MARITZA, GUSTAVO A Referring Unavailable LILLIAM CHEEK Attending Unavailable KALYAN BARBOZA Attending Unavailable GUSTAVO SALAS A Referring Unavailable MARITZAGUSTAVO LEMUS Attending Unavailable MARITZA, GUSTAVO A Referring Unavailable MARITZA, GUSTAVO A Referring Unavailable GUSTAVO SALAS A Attending Unavailable MARITZA, GUSTAVO A Referring Unavailable MARITZAGUSTAVO LEMUS A Attending Unavailable MARITZA, GUSTAVO A Referring Unavailable MARITZA, GUSTAVO A Attending Unavailable MARITZA, GUSTAVO A Referring Unavailable MARITZA, GUSTAVO A Referring Unavailable MARITZA, GUSTAVO A Attending Unavailable Maritza DO, Gustavo A Unavailable Jenna Engle Attending Unavailable Gustavo Salas Primary Care Unavailable Jenna Engle Admitting Unavailable Gustavo Salas Primary Care Unavailable [place]oacano Mckenzie Attending Unavailab Lucho Yoder Admitting Unavailable Allergies Allergy Classification Reported Allergen(s) Allergy Type Date of Onset Reaction(s) Facility (11 sources) Acetaminophen / oxyCODONE; Translations: [acetaminophen-ox ycodone] Drug Allergy 3 vomiting [place] Other (20 sources) Aspirin; Translations: [aspirin] Drug Allergy 05-06-201 9 Other, Nausea/vomiting [facility] (5 sources) Acetaminophen / oxyCODONE; Translations: [OXYCODONE-ACETAM INOPHEN] Drug Allergy [address] [facility] (5 sources) Ibuprofen; Translations: [IBUPROFEN] Drug Allergy 4 Nausea/vomiting [facility] (4 sources) Acetaminophen; Translations: [acetaminophen] Drug Allergy 4 GI intolerance [facility] (6 sources) oxyCODONE; Translations: [OXYCODONE] Drug Allergy 1 GI intolerance [facility] (1 source) Acetaminophen / oxyCODONE; Translations: [acetaminophen-ox ycodone] Drug Allergy [facility] Repository Medications Current Medications Medication Drug [...] eight hours as needed acetaminophen (Tylenol) 500 MG tablet Take 1 tablet by mouth every 8 (eight) hours if needed. Active take 2 capsules by m outh every eight hours Acetaminophen 500 MG 2 capsules as needed Orally every 8 hrs PRN Active [id number] 200 actuat albuterol 0.09 mg/actuat metered dose inhaler (20 sources) beta2-Adrenergic Agonist Start: 05-22-2024 take 2 puff(s) by inhalation every four hours for wheezing albuterol HFA (Ventolin HFA) 90 mcg/act inhaler Indications: Chronic obstructive pulmonary disease, unspecified COPD type ([facility]/HCC) Inhale 2 puffs every 4 (four) hours if needed for wheezing or shortness of breath 8 g 5 05/22/2024 Active Start: 02-15-2024 Albuterol Sulf ate Active 2 INH INHALATION Q4H February 15, [...] Discontinu ed 2 INH INHALATION Q6H 8 May 31, 2022 12:00am February 15, 2024 [...] Active 3 ML INHALATION Twice daily 250 3 September 21, 2020 1:00am ipratropium-albu teroL (Duo-Neb) 0.5-2.5 mg/3 mL nebulizer solution Take 3 mL by nebulization every 6 hours. Active alendronic acid 70 mg oral tablet (20 sources) Bisphosphonate Start: 05-30-2023 End: 12-29-2024 take 1 tablet by mouth in the morning alendronate (Fosamax) 70 MG tablet Indications: Osteopenia of both hips Take 1 tablet (70 mg) by mouth every 7 (seven) days Take in the morning with a full glass of water, on an empty stomach, and do not take anything else by mouth or lie down for the next 30 min. 4 tablet 12/30/2023 12/29/2024 Active Start: 09-21-2020 End: 12-09-2023 take 70 [...] 01, 2019 12:00am February 23, 2020 4:42pm atorvastatin 40 mg oral tablet (20 sources) HMG-CoA Reductase Inhibitor Start: 12-30-2023 take 1 tablet by mouth once daily atorvastatin (Lipitor) 40 MG tablet Indications: Pure hypercholesterolemia (CMS/HCC) Take 1 tablet (40 mg) by mouth Daily 90 tablet 3 12/30/2023 Active Start: 04-28-2020 End: 09-21-2020 atorvastatin 40 mg Tab 90 EA , 0 Refill(s), TAKE 1 TABLET BY MOUTH EVERY DAY, Refills(s) 0 Start Date: 01/30/24 Status: Ordered Start: 01-12-2019 End: 04-28-2020 take 1 tablet by mouth once daily Atorvastatin (Lipitor) 20 mg Tablet Discontinued 20 MG PO Daily January 12, 2019 12:00am April 28, 2020 11:19am azithromycin 250 mg oral tablet (11 sources) [...] release oral tablet (20 sources) Aminoketone Start: 09-03-2024 take 1 tablet by mouth every twenty-four hours in the morning buPROPion XL (Wellbutrin XL) 300 MG 24 hr tablet Indications: Recurrent major depressive disorder, in partial remission (HCC) (CMS/HCC) Take 1 tablet (300 mg) by mouth in the morning. Do not crush, chew, or split.. 90 tablet 3 09/03/2024 Active Start: 01-01-2019 End: 09-21-2020 take 300 mg [...] day(s), # 14 cap(s), Refills(s) 0, Pharmacy: [id number], 170, cm, 01/30/24 13:39:00 [...] 2020 12:00am February 23, 2020 2:45pm cholecalciferol 0.05 mg oral capsule (20 sources) Vitamin D Start: 09-03-2024 take 1 capsule by mouth once daily cholecalciferol (Vitamin D-3) 50 MCG (2000 UT) capsule Indications: Vitamin D deficiency Take 1 capsule (50 mcg) by mouth Daily 90 capsule 3 09/03/2024 Active Start: 09-21-2020 take 2000 [IU] by mo ut once daily Cholecalciferol (Vitamin D3) Active 2000 UNIT PO Daily September 21, 2020 1:00am Start: 08-31-2020 End: 09-21-2020 take 50 ug by mouth once daily Cholecalciferol (Vitami n D3) Discontinued 50 MCG PO Daily August 31, 2020 1:00am September 21, 2020 1:41pm [facility] cholecalciferol, vitamin D3, 75 mcg (3,000 unit) tablet Take by mouth. 1 TAB BID Active take 1 capsule by mo [facility] in the morning cholecalciferol, vitamin D3, 2,000 units capsule Take 1 capsule (2,000 Units total) by mouth in the morning. 0 Active clopidogrel 75 mg oral tablet (20 sources) P2Y12 Platelet Inhibitor Start: 09-03-2024 take 1 tablet by mouth once daily clopidogrel (Plavix) 75 MG tablet Indications: Atherosclerosis of [place] coronary artery of [place] heart without angina pectoris (CMS/HCC) Take 1 tablet (75 mg) by mouth 1 (one) time each day at the same time 90 tablet 3 09/03/2024 Active Start: 12-31-2022 take 75 mg by mouth once daily Clopidogrel Active 75 MG PO Daily 0 December 31, 2022 1:00am DAPTOmycin in sodium chloride 0.9 % 50 mL IVPB (4 sources) Start: 10-23-2023 End: 11-17-2023 DAPTOmycin in sodium chloride 0.9 % 50 mL IVPB 650 mg daily pharmacy to dose. 50 mL 26 10/23/2023 11/17/2023 Active doxycycline hyclate 100 mg oral capsule (7 sources) Tetracycline-clas s Drug Start: 06-17-2023 End: 07-10-2023 take 1 capsule by mouth twice daily doxycycline (Vibramycin) 100 MG capsule TAKE 1 CAPSULE BY MOUTH 2 TIMES A DAY FOR 7 DAYS 06/17/2023 Active 0.4 ml enoxaparin sodium 100 mg/ml prefilled syringe (1 source) Low Molecular Weight Heparin Start: 08-02-2019 enoxaparin (LOVENOX) injection 40 mg famotidine 40 mg oral tablet (8 sources) Histamine-2 Receptor Antagonist Start: 02-15-2024 take 20 mg by mouth once daily Famotidine Active 20 MG PO Daily February 15, 2024 12:00am Start: 01-30-2024 famotidine 40 mg Tab 45 EA, 0 Refill(s), TAKE 1/2 TABLET BY MOUTH EVERY DAY, Refills(s) 0 Start Date: 01/30/24 Status: Ordered Start: 12-30-2023 take 0.5 tablet by m outh once daily famotidine (Pepcid) 40 MG tablet Indications: Gastroesophageal reflux disease without esophagitis Take 0.5 tablets (20 mg) by mouth Daily 90 tablet 2 12/30/2023 Active take 1 tablet by nika th once daily famotidine (Pepcid) 20 mg tablet Take 1 tablet (20 mg) by mouth once daily. Active fluticasone propionate 0.05 mg/actuat metered dose nasal spray (5 sources) Corticosteroid Start: 12-08-2019 take 1 spray(s) nasal route once daily as needed Fluticasone Propionate 50 MCG/ACT 1 spray in each nostril Nasally Once a day PRN Nov, Active 30 actuat fluticasone furoate 0.1 mg/actuat / umeclidinium 0.0625 mg/actuat / vilanterol 0.025 mg/actuat dry powder inhaler (20 sources) Anticholinergic, Corticosteroid, beta2-Adrenergic Agonist Start: 05-22-2024 take 1 puff(s) by inhalation in the morning Fluticasone-Umec lidin-Vilant (Trelegy Ellipta) 100-62.5-25 MCG/ACT aerosol powder Indications: Chronic obstructive pulmonary disease, unspecified COPD type (CMS/HCC) Inhale 1 puff in the morning. 1 each 3 05/22/2024 Active Start: 07-10-2023 Fluticasone-Um eclidin-Vilanter (Trelegy Ellipta) 100-62.5-25 mcg Blister With Device Active 1 INH INHALATION Daily July 10, 2023 12:00am Start: 04-01-2023 End: 12-09-2023 take 1 puff(s) by inhalation in the morning Lurtmjjayuk-Uiadqdncc-Jknpha (Trelegy Ellipta) 100-62.5-25 MCG/ACT aerosol powder Indications: Panlobular emphysema (CMS/HCC) Inhale 1 puff in the morning. 1 each 11 04/01/2023 12/09/2023 Discontinued (Other) Start: 04-01-2023 take 1 puff(s) by inhalation once daily bztxaqaqjrg-koknxbbcs-kczotils (TRELEGY ELLIPTA) 100-62.5-25 mcg blister with device Inhale 1 puff once daily. 0 04/01/2023 Active Start: 02-23-2020 End: 04-25-2020 Fiwgwebvpnv-Okshjvqio-Aicqto er (Trelegy Ellipta) 100-62.5-25 mcg blister with device Discontinued 1 PUFF INHALATION As Directed February 22, 2020 11:00pm April 25, 2020 5:58pm Start: 02-23-2020 End: 04-25-2020 Sjlafofnmtw-Chuskqmzb-Vwxten er (Trelegy Ellipta) 100-62.5-25 mcg blister with device Discontinued 1 PUFF INHALATION As Directed February 23, 2020 12:00am April 25, 2020 6:58pm take 1 puff(s) by inhalation once daily Trelegy Ellipta 100-62.5-25 MCG/INH 1 pu ff Inhalation Once a day for 30 days Active Xfgxcxercuu-Grvseckqt-Trtptf (Trelegy Ellipta) 200-62.5-25 MCG/ACT aerosol powder (1 source) take 1 puff(s) by inhalation once daily Mxgiasnjyag-Kmikvjtwc-Tqbfbq (Trelegy Ellipta) 200-62.5-25 MCG/ACT aerosol powder Inhale 1 puff Daily Active furosemide 40 mg oral tablet (20 sources) Loop Diuretic St ar t: 04 -0 9- 20 24 En d: 07 -2 6- 20 25 take 1 tablet by mouth once daily furosemide (Lasix) 40 MG tablet Indications: Pleural effusion on left , Shortness of breath Take 1 tablet (40 mg) by mouth Daily 30 tablet 11 05/22/2024 05/22/2025 Active Start: 09-26-2023 take 1 tablet by nika th once daily furosemide (LASIX) 20 mg tablet [...] other day levoFLOXacin 500 mg oral tablet (5 sources) Quinolone Antimicrobial Start: 11-28-2023 levofloxacin 500 mg Tab Refills(s) 0 Start Date: 01/30/24 Status: Ordered lisinopril 5 mg oral tablet (20 sources) Angiotensin Converting Enzyme Inhibitor Start: 03-20-2023 End: 12-09-2023 lisinopril 5 MG tablet Daily 07/10/2023 Active Start: 12-31-2022 End: 07-10-2023 take 2.5 mg [...] 01, 2019 12:00am August 01, 2019 6:35pm loperamide hydrochloride 2 mg oral capsule (1 source) Opioid Agonist Start: 02-25-2024 take 1 capsule by mouth four times daily as needed loperamide (Imodium) 2 MG capsule Take 2 mg by mouth 4 (four) times a day as needed 02/25/2024 Active magnesium oxide 400 mg oral tablet (1 source) Start: 10-23-2023 magnesium oxid e (Mag-Ox) 400 (240 Mg) MG tablet 10/23/2023 Active melatonin 5 mg oral capsule (15 sources) Start: 09-03-2024 Melatonin 5 MG capsule Indications: Insomnia, unspecified type Take 1 tablet by mouth as needed at bedtime (for sleep) 90 capsule 3 09/03/2024 Active Start: 02-15-2024 take 5 mg by mouth [...] Status: Ordered Start: 08-03-2019 End: 01-06-2024 take 1 tablet by mouth once daily metoprolol succinate XL (Toprol-XL) 50 MG 24 hr tablet Indications: Atherosclerosis of [place] coronary artery without angina pectoris, unspecified whether [place] or transplanted heart (CMS/HCC) TAKE 1 TABLET BY MOUTH EVERY DAY 90 tablet 3 07/09/2023 Active Start: 08-02-2019 metoprolol (LO PRESSOR) injection 2.5 [...] topical powder (20 sources) Polyene Antifungal Start: 05-06-2024 nystatin (Mycostatin) 613579 UNIT/GM powder Indications: Rash Apply topically 2 (two) times a day 60 g 1 05/06/2024 Active Start: 01-30-2024 nystatin Top 1 00,000 units/g Pwdr Refill(s) 0 Start Date: 01/30/24 Status: Ordered Start: 06-17-2023 nystatin (MYCO STATIN) powder Apply 1 Application topically in the morning and 1 Application before bedtime. Apply to abdominal folds and breast. . 0 06/17/2023 Active Start: 06-17-2023 nystatin (Myco statin) 236270 UNIT/GM powder Indications: Rash APPLY TOPICALLY TO [...] tablet (20 sources) Proton Pump Inhibitor Start: 09-03-2024 take 1 tablet by mouth before mealtime pantoprazole (ProtoNix) 40 MG EC tablet Indications: Gastroesophageal reflux disease without esophagitis Take 1 tablet (40 mg) by mouth in the morning. Take before meals. 90 tablet 3 09/03/2024 Active Start: 01-01-2019 End: 09-21-2020 take 1 tablet by mouth once daily Pantoprazole (Protonix) 40 mg tablet,delayed release (DR/EC) Active 40 MG PO Daily September 21, 2020 1:38pm PARoxetine hydrochloride 40 mg oral tablet (20 sources) Serotonin Reuptake Inhibitor Start: 09-03-2024 take 1 tablet by mouth in the morning PARoxetine (Paxil) 40 MG tablet Indications: Major depressive disorder in partial remission, unspecified whether recurrent (HCC) (CMS/HCC) Take 1 tablet (40 mg) by mouth in the morning. 90 tablet 3 09/03/2024 Active Start: 01-30-2024 paroxetine Ora l, Refills(s) 0 Start Date: 01/30/24 Status: Ordered Start: 11-15-2017 End: 09-21-2020 take 1 tablet by mouth once daily in the morning Paroxetine Hcl (Paxil) 40 mg tablet Active 40 MG PO Every morning September 21, 2020 1:38pm potassium chloride 10 meq extended release oral capsule (14 sources) Start: 02-15-2024 take 20 mEq by mouth once daily Potassium Chloride Active 20 MEQ PO Daily February 15, 2024 12:00am Start: 01-30-2024 potassium chlo ride 10 mEq Cap-ER Refills(s) 0 Start Date: 01/30/24 Status: Ordered Start: 03-04-2024 potassium chlo ride ER (Micro-K) 10 MEQ ER capsule Indications: Essential hypertension (CMS/HCC) Take 2 capsules (20 mEq) by mouth Daily 180 capsule 3 12/30/2023 Active Start: 09-01-2023 potassium chlo ride ER (Micro-K) 10 MEQ ER capsule Take 20 mEq by mouth in the morning. 0 09/01/2023 Active take 1 tablet by nika th once daily potassium chloride CR 10 mEq ER tablet Take 1 tablet (10 mEq) by mouth once daily. Do not crush, chew, or split. Active predniSONE 20 mg oral tablet (20 sources) Start: 02-25-2024 take 2 tablets by mouth in the morning predniSONE (Deltasone) 20 MG tablet Take 40 mg by mouth in the morning. 02/25/2024 Active Start: 08-02-2023 take 1 tablet by nika th once daily predniSONE (Deltasone) 20 MG tablet [...] 6:32pm administer with food or milk pregabalin 75 mg oral capsule (20 sources) Start: 06-22-2024 take 1 capsule by mouth once daily at bedtime pregabalin (Lyrica) 75 MG capsule Indications: Failed back surgical syndrome TAKE 1 CAPSULE BY MOUTH EVERY MORNING AND AT BEDTIME 60 capsule 1 06/22/2024 Active Start: 01-30-2024 pregabalin Ora l, Refills(s) 0 Start Date: 01/30/24 Status: Ordered Start: 02-23-2020 End: 09-21-2020 take 75 mg by mouth twice daily Pregabalin Discontinued 75 MG PO Twice daily 6 3 February 25, 2020 1:29pm April 25, 2020 5:24pm QUEtiapine 50 mg oral tablet (4 sources) Atypical Antipsychotic Start: 10-23-2023 take 1 tablet by mouth once daily QUEtiapine (SEROquel) 50 mg tablet Take 1 tablet (50 mg total) by mouth nightly. 0 10/23/2023 Active sennosides, mcc 8.6 mg oral tablet (2 sources) Start: 09-21-2020 take 1 tablet by mouth once daily at bedtime Sennosides (Senna Lax) 8.6 mg Tablet Active 1 TAB PO Daily at bedtime September 21, 2020 12:00am 1000 ml sodium chloride 9 mg/ml injection (2 sources) Start: 10-04-2023 sodium chlorid e 0.9 % solution 10/04/2023 Active Start: 08-02-2019 Intravenous, a t 100 mL/hr, CONTINUOUS, Starting 08/02/19 at 0030 solifenacin succinate 10 mg oral tablet (1 source) Cholinergic Muscarinic Antagonist Start: 01-10-2024 take 1 tablet by mouth once daily solifenacin (VESIcare) 10 MG tablet Indications: Female incontinence Take 1 tablet (10 mg) by mouth Daily Swallow tablet whole; do not crush, chew, or split. 90 tablet 1 01/10/2024 Active triamcinolone acetonide 1 mg/ml topical cream (12 [...] every four to six hours Hydrocodone-Acetami nophen ([place]) 5-325 mg tablet Discontinued 1 TAB PO EVERY 4-6 HOURS 10 January 15, 2020 February 23, 2020 2:44pm Start: 08-02-2019 HYDROcodone-ac etaminophen (NORCO) 5-325 MG per tablet 1 tablet Start: 01-02-2019 End: 01-12-2019 take 1 tablet by mouth every six hours Hydrocodone-Acetaminophen ([place]) 5-325 mg tablet Discontinued 1 TAB PO Q6H 16 03January 02, 2019 January 12, 2019 6:44am Start: 06-22-2018 End: 08-01-2019 take 1 tablet by mouth every four to six hours Hydrocodone-Acetaminophen ([place]) 5-325 mg tablet Discontinued 1 TAB PO [...] OF BREATH Start Date: 01/30/24 Status: Ordered aspirin 81 mg delayed release oral tablet (20 sources) Platelet Aggregation Inhibitor, Nonsteroidal Anti-inflammator y Drug Start: 04-28-2020 End: 12-26-2022 take 81 [...] 1 tablet Orally Once a day Active budesonide 0.25 mg/ml inhalation suspension (20 sources) [...] 12:00am calcium carbonate 1250 mg chewable tablet (20 sources) Start: 12-26-2022 End: 08-17-2023 take 500 mg by mouth once daily Calcium Carbonate Discontinued 500 MG PO Daily December 26, 2022 1:00am August 17, 2023 6:51pm Start: 05-05-2020 take 1 tablet by nika th every twelve hours calcium carbonate 1500 (600 Ca) MG tablet Take 1 tablet by mouth every 12 (twelve) hours. 05/05/2020 Active take 1 tablet by nika th twice daily at mealtime calcium carbonate 600 mg calcium (1,500 mg) tablet Take 600 mg by mouth 2 times a day with meals. Active take 1 tablet by nika every twenty-four hours Calcium 1250 MG 1 [...] 05, 2020 1:00am September 21, 2020 1:41pm ergocalciferol 1.25 mg oral capsule (15 sources) Provitamin D2 Compound Start: 04-28-2020 End: 12-26-2022 take 82324 [IU] by mouth every month Ergocalciferol (Vitamin D2) Discontinued 48160 UNIT PO every month April 28, 2020 [...] application Externally Twice a day prn Active Ldnkzhaytubw-Pudnzezz-Ioekhe (Multivitamin 50 Plus) Tablet (10 sources) Start: 02-23-2020 End: 04-25-2020 Wlnrbswsgkfu-Nowjfoeq-Jfagaz (Multivitamin 50 Plus) Tablet Discontinued 1 TAB PO Daily February 22, 2020 11:00pm April 25, 2020 5:58pm Start: 02-23-2020 End: 04-25-2020 Elmwxyydcmob-Tolsmekc-Iwzlnk (Multivitamin 50 Plus) Tablet Discontinued 1 TAB [...] DOSES CALL 911 Sublingual as needed Active Valentines-3 Fatty Acids-Fish Oil (Fish Oil) 300-1,000 mg capsule (10 sources) Start: 08-01-2019 End: 02-23-2020 take 1 capsule by mouth once daily Valentines-3 Fatty Acids-Fish Oil (Fish Oil) 300-1,000 mg capsule Discontinued 1000 MG PO Daily July 31, 2019 11:00pm February 23, 2020 3:42pm Start: 08-01-2019 End: 02-23-2020 take 1 capsule by mouth once daily Valentines-3 Fatty Acids-Fish Oil (Fish Oil) 300-1,000 mg [...] PO Twice daily September 21, 2020 1:00am March 1st, 2023 11:27pm traZODone hydrochloride 100 mg oral tablet [...] accident; Translations: [Cerebral infarction, unspecified] 04-26-2020 Chronic Anxiety disorders (9 sources) Anxiety; Translations: [Anxiety disorder, unspecified] Onset: 3 10-07-2023 Chronic Bacterial infection; unspecified site (2 sources) Streptococcal infection, unspecified site; Translations: [Resistance to vancomycin] Onset: 4 Episodic Calculus of urinary tract (5 sources) Kidney stone; Translations: [Calculus of kidney] Episodic Chronic kidney disease (10 sources) Chronic kidney disease stage 3A ; Translations: [Stage 3a chronic kidney disease (HCC) (CMS/HCC)] Onset: 3 12-09-2023 Chronic Chronic kidney disease (3 sources) Chronic kidney disease; Translations: [Chronic kidney disease, stage 3b (CMS/HCC)] Onset: 4 Chronic obstructive pulmonary disease and bronchiectasis (20 sources) Chronic obstructive lung disease; Translations: [Chronic obstructive pulmonary disease, unspecified] Onset: 3 Resolved: 4 09-06-2020 Chronic Chronic ulcer of skin (8 sources) Non-pressure chronic ulcer of other part of left foot with fat layer exposed; Translations: [Ulcer of other part of foot] Onset: 3 Resolved: 4 10-07-2023 Chronic Congestive heart failure; nonhypertensive (10 sources) Congestive heart failure; Translations: [Heart failure, unspecified] Onset: 4 Resolved: 4 06-25-2023 Chronic Coronary atherosclerosis and other heart disease (20 sources) Coronary arteriosclerosis; Translations: [Disorder of cardiovascular system] Onset: 9 08-02-2019 Chronic Deficiency and other anemia (10 sources) Anemia; Translations: [Anemia, unspecified] 09-06-2020 Episodic Deficiency and other anemia (3 sources) Iron deficiency anemia, unspecified; Translations: [Iron deficiency anemia, unspecified] Onset: 4 Episodic Delirium, dementia, and amnestic and other cognitive disorders (1 source) Alzheimer's disease, unspecified; Translations: [Alzheimer's disease, unspecified] Onset: 4 Chronic Disorders of lipid metabolism (20 sources) Mixed hyperlipidemia; Translations: [Hyperlipidemia] Onset: 9 08-02-2019 Chronic Diverticulosis and diverticulitis (6 sources) Diverticular disease; Translations: [Diverticulosis of intestine, part unspecified, without perforation or abscess without bleeding] Onset: 3 Resolved: 4 06-14-2023 Chronic Esophageal disorders (20 sources) Gastroesophageal reflux disease; Translations: [Gastro-esophageal reflux disease without esophagitis] Onset: 2 Resolved: 2 Chronic Essential hypertension (20 sources) Essential hypertension; Translations: [Hypertensive disorder] Onset: 9 Resolved: 3 08-02-2019 Chronic Fluid and electrolyte disorders (2 sources) Hyperkalemia; Translations: [Hypokalemia] Onset: 3 Episodic Genitourinary symptoms and ill-defined conditions (6 sources) Incontinence; Translations: [Unspecified urinary incontinence] Onset: [...] severe without psychotic features] Onset: 2 Resolved: 4 Chronic Occlusion or stenosis of precerebral arteries (20 sources) Bilateral stenosis of carotid arteries; Translations: [Occlusion and stenosis of bilateral carotid arteries] Onset: 3 Resolved: 4 04-28-2020 Chronic Osteoarthritis (20 sources) Osteoarthritis of left knee joint; Translations: [Unilateral primary osteoarthritis, left knee] Onset: 3 Resolved: 4 03-28-2023 Chronic Osteoporosis (19 sources) Senile osteoporosis; Translations: [Age-related osteoporosis without current pathological fracture] Onset: 3 Resolved: 4 10-07-2023 Chronic Other circulatory disease (10 sources) Low blood pressure; Translations: [Hypotension, unspecified] 08-31-2020 Episodic Other connective tissue disease (5 sources) History of total hip arthroplasty; Translations: [...] and parasitic diseases] Onset: 4 Episodic Other injuries and conditions due to external causes (8 sources) Injury of head; Translations: [Unspecified injury of head, initial encounter] 12-26-2022 Episodic Other injuries and conditions due to external causes (5 sources) Unspecified injury of head, initial encounter; Translations: [Head injury, unspecified] 12-26-2022 Episodic Other lower respiratory disease (2 sources) Wheezing; Translations: [Wheezing] 12-09-2023 Episodic Other lower respiratory disease (6 sources) Shortness of breath; Translations: [Shortness of breath] Onset: 4 Episodic Other nervous system disorders (10 sources) Chronic pain; Translations: [Other chronic pain] Chronic Other nervous system disorders (10 sources) Postoperative pain ; Translations: [Other acute postprocedural pain] 09-06-2020 Episodic Other nervous system disorders (2 sources) Post-surgery back pain 01-23-2024 Episodic Other non-traumatic joint disorders (1 source) Pain in unspecified hip; Translations: [Pain in joint, pelvic region and thigh] 12-31-2022 Episodic Other non-traumatic joint disorders (4 sources) Sinus tarsi syndrome; Translations: [Pain in left ankle and joints of left foot] Onset: 3 06-14-2023 Episodic Other nutritional; endocrine; and metabolic disorders (2 sources) Body mass index (BMI) 35.0-35.9, adult; Translations: [Body mass index (BMI) 35.0-35.9, adult] Onset: 4 Chronic Other nutritional; endocrine; and metabolic disorders (2 sources) Body mass index (BMI) 32.0-32.9, adult; Translations: [Body mass index (BMI) 32.0-32.9, adult] Onset: 4 Chronic Other nutritional; endocrine; and metabolic disorders (1 source) Hypomagnesemia; Translations: [Hypomagnesemia] Onset: 3 Chronic Other nutritional; endocrine; and metabolic disorders (1 source) Obesity caused by energy imbalance; Translations: [Morbid (severe) obesity due to excess calories] Onset: 4 12-29-2023 Chronic Other screening for suspected conditions (not [...] rhinitis, unspecified] Chronic Peripheral and visceral atherosclerosis (3 sources) Atherosclerosis of aorta; Translations: [Atherosclerosis of aorta] Onset: 4 01-23-2024 Chronic Prolapse of female genital organs (2 sources) Cystocele; Translations: [Cystocele, unspecified] 12-09-2023 Chronic Residual codes; unclassified (9 sources) Sleep apnea; Translations: [Sleep apnea, unspecified] [...] measures, unspecified] 09-06-2020 Episodic Residual codes; unclassified (2 sources) Other specified health status; Translations: [Other specified conditions influencing health status] 12-26-2022 Episodic Residual codes; unclassified (6 sources) Edema of foot; Translations: [Localized edema] 06-25-2023 Episodic Respiratory failure; insufficiency; arrest (adult) (16 sources) Chronic hypoxemic respiratory failure; Translations: [Chronic respiratory failure with hypoxia] Onset: 3 Resolved: 4 01-06-2024 Chronic Screening and history of mental health and substance abuse codes (1 source) Personal history of nicotine dependence; Translations: [Personal history of nicotine dependence] Onset: 4 Episodic Spondylosis; intervertebral disc disorders; other back problems (19 sources) Degeneration of lumbar intervertebral disc; Translations: [Other intervertebral disc degeneration, lumbar region] Onset: 3 Resolved: 4 03-28-2023 Chronic Transient cerebral ischemia (20 sources) Transient cerebral ischemia; Translations: [Transient cerebral [...] Translations: [Longstanding persistent atrial fibrillation] Onset: 3 Past or Other Problems Problem Classification Problem Date Documented Da te Episodic/Chronic Abdominal hernia (17 sources) Umbilical hernia; Translations: [Umbilical hernia without obstruction or gangrene] Onset: 3 Resolved: 4 07-11-2023 Episodic Acute and unspecified renal failure (20 sources) Injury of kidney; Translations: [Acute kidney failure, unspecified] Onset: 3 Resolved: 4 09-12-2020 Episodic Administrative/social admission (20 sources) Reduced mobility; Translations: [Other reduced mobility] Onset: 3 Resolved: 4 04-28-2020 Episodic Allergic reactions (1 source) Atopic dermatitis; Translations: [Intrinsic (allergic) eczema] Onset: 3 Resolved: 4 03-25-2024 Chronic Allergic reactions (5 sources) Inflammatory dermatosis; Translations: [Dermatitis, unspecified] Onset: 3 06-14-2023 Episodic Cardiac dysrhythmias (7 sources) Longstanding persistent atrial fibrillation; Translations: [Longstanding persistent atrial fibrillation] Onset: 9 Resolved: 4 08-02-2019 Chronic Coronary atherosclerosis and other heart disease (3 sources) Coronary angioplasty status; Translations: [Stented coronary artery] Onset: 4 Resolved: 4 Episodic Deficiency and other anemia (6 sources) Microcytic anemia; Translations: [Iron deficiency anemia, unspecified] Onset: 4 Resolved: 4 01-06-2024 Episodic Diabetes mellitus with complications (1 source) Neuropathy due to diabetes mellitus; Translations: [Type 2 diabetes mellitus with diabetic neuropathy, unspecified] Onset: 4 Resolved: 4 03-25-2024 Chronic Diabetes mellitus without complication (3 sources) Impaired fasting glycemia; Translations: [Impaired fasting glucose] Onset: 4 01-23-2024 Episodic Diseases of white blood cells (11 sources) Leukocytosis; Translations: [Elevated white blood cell count, unspecified] Onset: 4 Resolved: 4 09-06-2020 Chronic E Codes: Fall (20 sources) Fall; Translations: [Unspecified fall, initial encounter] Onset: 3 Resolved: 4 08-31-2020 Episodic Fracture of lower limb (1 source) Fracture of femur; Translations: [Unspecified fracture of left femur, sequela] Onset: 3 Resolved: 4 03-25-2024 Episodic Fracture of neck of femur (hip) (20 sources) Intertrochanteric fracture; Translations: [Displaced intertrochanteric fracture of unspecified femur, initial encounter for closed fracture] Onset: 4 Resolved: 4 08-31-2020 Episodic Intestinal obstruction without hernia (3 sources) Small bowel obstruction; Translations: [Unspecified intestinal obstruction, unspecified as to partial versus complete obstruction] Onset: 9 Resolved: 4 08-01-2019 Episodic Malaise and fatigue (19 sources) Physical deconditioning; Translations: [Other malaise] Onset: 4 Resolved: 4 12-27-2022 Episodic Mood disorders (7 sources) Mood disorders Onset: 3 Resolved: 3 10-06-2023 Mycoses (5 sources) Onychomycosis; Translations: [Tinea unguium] Onset: 3 06-14-2023 Episodic Nausea and vomiting (5 sources) Nausea and vomiting; Translations: [Nausea with vomiting, unspecified] Onset: 4 Resolved: 4 02-14-2024 Episodic Nutritional deficiencies (17 sources) Vitamin D deficiency; Translations: [Vitamin D deficiency, unspecified] Onset: 3 Resolved: 4 04-28-2020 Chronic Nutritional deficiencies (1 source) Nutritional deficiency state; Translations: [Nutritional deficiency, unspecified] Onset: 3 Resolved: 4 03-25-2024 Episodic Other aftercare (5 sources) Post-discharge follow-up; Translations: [Encounter for follow-up examination after completed treatment for conditions other than malignant neoplasm] Onset: 3 Resolved: 4 12-09-2023 Episodic Other aftercare (1 source) 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; Translations: [care home (current) use of anticoagulants] Onset: 9 Resolved: 4 03-25-2024 Episodic Other and ill-defined heart disease (3 sources) Heart disease; Translations: [Heart disease, unspecified] Onset: 3 Resolved: 4 06-14-2023 Chronic Other and unspecified benign neoplasm (5 sources) Polyp of colon; Translations: [Polyp of colon] Onset: 3 06-14-2023 Episodic Other bone disease and musculoskeletal deformities (1 source) Osteopenia; Translations: [Other specified disorders of bone density and structure, right thigh] Onset: 4 Resolved: 4 05-06-2024 Episodic Other circulatory disease (1 source) History of cerebrovascular disease; Translations: [Personal history of transient ischemic attack (TIA), and cerebral infarction without residual deficits] Onset: 3 Resolved: 4 03-25-2024 Episodic Other connective tissue disease (1 source) Recurrent falls ; Translations: [Repeated falls] Onset: 3 Resolved: 4 03-25-2024 Episodic Other connective tissue disease (1 source) Muscle weakness; Translations: [Muscle weakness (generalized)] Onset: 3 Resolved: 4 03-25-2024 Episodic Other ear and sense organ disorders (1 source) Hearing loss of right ear; Translations: [Impacted cerumen, right ear] Onset: 4 12-30-2023 Episodic Other gastrointestinal disorders (1 source) Colostomy present; Translations: [Encounter for attention to colostomy] Onset: 4 Resolved: 4 03-25-2024 Chronic Other gastrointestinal disorders (3 sources) Constipation; Translations: [Constipation, unspecified] Onset: 3 Resolved: 4 06-14-2023 Episodic Other gastrointestinal disorders (1 source) History of diverticulitis; Translations: [Personal history of other diseases of the digestive system] Onset: 5 Resolved: 4 03-25-2024 Episodic Other hereditary and degenerative nervous system conditions (1 source) Essential tremor; Translations: [Essential tremor] Onset: 4 Resolved: 4 03-25-2024 Chronic Other inflammatory condition of skin (11 sources) Intertrigo; Translations: [Erythema intertrigo] Onset: 3 Resolved: 4 04-28-2020 Episodic Other injuries and conditions due to external causes (6 sources) Closed injury of head; Translations: [Unspecified injury of head, initial encounter] Onset: 4 Resolved: 4 07-10-2023 Episodic Other injuries and conditions due to external causes (3 sources) At risk for falls ; Translations: [History of falling] Onset: 3 06-14-2023 Episodic Other lower respiratory disease (15 sources) Dyspnea; Translations: [Shortness of breath] Onset: 3 Resolved: 4 12-09-2023 Episodic Other lower respiratory disease (6 sources) Productive cough ; Translations: [Cough with expectoration] Onset: 4 Resolved: 4 01-06-2024 Episodic Other lower respiratory disease (3 sources) Hypoxia; Translations: [Hypoxemia] Onset: 4 01-23-2024 Episodic Other lower respiratory disease (2 sources) Shortness of breath; Translations: [Shortness of breath] Onset: 4 Episodic Other lower respiratory disease (1 source) Acute respiratory distress; Translations: [Acute respiratory distress] Onset: 3 Episodic Other nervous system disorders (7 sources) Disorder of brain; Translations: [Encephalopathy, unspecified] Onset: 3 Resolved: 4 10-07-2023 Chronic Other nervous system disorders (1 source) Cognitive deficit in communication skills; Translations: [Cognitive communication deficit] Onset: 3 Resolved: 4 03-25-2024 Chronic Other nervous system disorders (1 source) Difficulty walking; Translations: [Difficulty in walking, not elsewhere classified] Onset: 3 Resolved: 4 03-25-2024 Chronic Other nervous system disorders (1 source) Polyneuropathy; Translations: [Polyneuropathy, unspecified] Onset: 3 Resolved: 4 03-25-2024 Chronic Other nervous system disorders (11 sources) Disturbance in speech; Translations: [Unspecified speech disturbances] Onset: 4 Resolved: 4 04-26-2020 Episodic Other nervous system disorders (1 source) Tremor; Translations: [Tremor, unspecified] Onset: 3 Resolved: 4 03-25-2024 Episodic Other nervous system disorders (1 source) Incoordination; Translations: [Unspecified lack of coordination] Onset: 3 Resolved: 4 03-25-2024 Episodic Other non-traumatic joint disorders (11 sources) Hip pain; Translations: [Pain in unspecified hip] Onset: 4 Resolved: 4 05-31-2022 Episodic Other non-traumatic joint disorders (1 source) Sinus tarsi syndrome of left ankle; Translations: [Pain in left ankle and joints of left foot] Onset: 3 06-14-2023 Episodic Other nutritional; endocrine; and metabolic disorders (16 sources) Body mass index 30+ - obesity; Translations: [Body mass index (BMI) 37.0-37.9, adult] Onset: 4 Resolved: 4 01-06-2024 Chronic Other nutritional; endocrine; and metabolic disorders (13 sources) Obesity; Translations: [Obesity, unspecified] Onset: 3 Resolved: 4 09-06-2020 Chronic Pneumonia (except that caused by tuberculosis or sexually transmitted disease) (8 sources) Pneumonia; Translations: [Pneumonia, unspecified organism] Onset: 4 Resolved: 4 02-14-2024 Episodic Pulmonary heart disease (5 sources) Pulmonary hypertension; Translations: [Pulmonary hypertension, unspecified] Onset: 3 Resolved: 4 10-07-2023 Chronic Residual codes; unclassified (9 sources) Activity of daily living (ADL) alteration; Translations: [Other specified health status] Onset: 4 Resolved: 4 12-26-2022 Episodic Residual codes; unclassified (3 sources) Insomnia; Translations: [Insomnia, unspecified] Onset: 3 06-14-2023 Episodic Residual codes; unclassified (3 sources) Edema of lower extremity; Translations: [Localized edema] Onset: 3 06-14-2023 Episodic Residual codes; unclassified (3 sources) Tobacco user; Translations: [Tobacco use] Onset: 3 Resolved: 4 06-14-2023 Episodic Residual codes; unclassified (3 sources) Localized edema; Translations: [Localized edema] Onset: 3 Resolved: 4 06-19-2023 Episodic Septicemia (except in labor) (7 sources) Sepsis; Translations: [Sepsis, unspecified organism] Onset: 3 10-07-2023 Episodic Spondylosis; intervertebral disc disorders; other back problems (16 sources) Chronic low back pain; Translations: [Lumbago with sciatica, left side] Onset: 3 06-14-2023 Episodic Substance-related disorders (16 sources) Nicotine dependence; Translations: [Nicotine dependence, unspecified, uncomplicated] Onset: 3 Resolved: 4 10-07-2023 Chronic Superficial injury; contusion (9 sources) Contusion of hip; Translations: [Contusion of unspecified hip, initial encounter] Onset: 4 Resolved: 4 07-10-2023 Episodic Unclassified (2 sources) Onset: 4 Resolved: 4 02-10-2024 Unclassified (1 source) Other specified cough; Translations: [Other specified cough] Onset: 4 Urinary tract infections (20 sources) Urinary tract infectious disease; Translations: [Urinary tract infection, site not specified] Onset: 4 Resolved: 4 04-28-2020 Episodic Viral infection (5 sources) Verruca plantaris; Translations: [Plantar wart] Onset: 3 06-14-2023 Episodic Results Test Name Value Interpretation Reference [...] Normal Not Available CT CHEST WO CONTon CT CHEST WO CONT CT CHEST WO [...] detection for pulmonary nodules was performed utilizing [employer] software. FINDINGS: No pleural or pericardial effusion. [...] Blake MD on 05/01/2024 9:36 AM Normal [facility] BLOOD UREA NITROGENon 2023 Urea nitrogen [Mass/Vol] 20 mg/dL Normal 5-27 [facility] Comment on above: Performed By: #### C SANTOSH DENG #### [facility] ([id number]) [address] [place] [address] CBC AND AUTO DIFFon 04-13-20 ABSOLUTE BASOPHIL 0.0 X10E9/L Normal 0.0-0.2 [facility] Comment on above: Performed By: #### C SANTOSH DENG #### [facility] ([id number]) [address] [place] [address] ABSOLUTE NEUTROPHIL 7.1 X10E9/L High 1.5-6.6 [facility] Comment on above: Performed By: #### C SOWMYA, BMP #### [facility] ([id number]) [address] [place] [id number] Basophils/100 WBC (Bld) 0.4 % Normal [facility] Comment on above: Performed By: #### C SOWMYA, BMP #### [facility] ([id number]) [address] [place] [address]12 Eosinophils (Bld) [#/Vol] 0.3 10*3/uL Normal 0.0-0.4 [facility] Comment on above: Performed By: #### C SOWMYA, BMP #### [facility] ([id number]) [address] [place] [address] 99844 Eosinophils/100 WBC (Bld) 2.8 % Normal [facility] Comment on above: Performed By: #### C SOWMYA, BMP #### [facility] ([id number]) [address] [place] [address] 10070 Erythrocyte distribution width (RBC) [Ratio] 19.0 % High 11.5-15.0 [facility] Comment on above: Performed By: #### C SOWMYA, BMP #### [facility] ([id number]) [address] [place] [address] 04327 Hematocrit (Bld) [Volume fraction] 27.8 % Low 35-47 [facility] Comment on above: Performed By: #### C SOWMYA, BMP #### [facility] ([id number]) [address] [place] [address] Hemoglobin (Bld) [Mass/Vol] 9.0 g/dL Low 11.7-15.5 [facility] Comment on above: Performed By: #### C SOWMYA, BMP #### [facility] ([id number]) [address] [place] [address] Lymphocytes (Bld) [#/Vol] 3.2 10*3/uL Normal 1.0-3.5 [facility] Comment on above: Performed By: #### C SOWMYA, BMP #### [facility] ([id number]) [address] [place] [address] 73259 Lymphocytes/100 WBC (Bld) 27.2 % Normal [facility] Comment on above: Performed By: #### C SOWMYA, BMP #### [facility] ([id number]) [address] [place] [address] 99809 MCH (RBC) [Entitic mass] 24.5 pg Low 27-34 [facility] Comment on above: Performed By: #### C SOWMYA, BMP #### [facility] ([id number]) [address] [place] [address] 19743 MCHC (RBC) [Mass/Vol] 32.3 g/dL Normal 32-36 [facility] Comment on above: Performed By: #### C SOWMYA, BMP #### [facility] ([id number]) [address] [place] [address] 96065 MCV (RBC) [Entitic vol] 76 fL Low 80-100 [facility] Comment on above: Performed By: #### C SOWMYA, BMP #### [facility] ([id number]) [address] [place] [address] 80021 Monocytes (Bld) [#/Vol] 1.0 10*3/uL High 0-0.9 [facility] Comment on above: Performed By: #### C SOWMYA, BMP #### [facility] ([id number]) [address] [place] [address] 04326 Monocytes/100 WBC (Bld) 8.4 % Normal [facility] Comment on above: Performed By: #### C SOWMYA, BMP #### [facility] ([id number]) [address] [place] [address] 74081 Neutrophils/100 WBC (Bld) 61.2 % Normal [facility] Comment on above: Performed By: #### C SOWMYA, BMP #### [facility] ([id number]) [address] [place] [address] 29632 Platelet mean volume (Bld) [Entitic vol] 6.8 fL Low 7-12 [facility] Comment on above: Performed By: #### C SOWMYA, BMP #### [facility] ([id number]) [address] [place] [address] 87189 Platelets (Bld) [#/Vol] 353 10*3/uL Normal 150-450 [facility] Comment on above: Performed By: #### C SOWMYA, BMP #### [facility] ([id number]) [address] [place] [address] 28051 RBC COUNT 3.67 X10E12/L Low 3.80-5.20 [facility] Comment on above: Performed By: #### C SOWMYA, BMP #### [facility] ([id number]) [address] [place] [address] 74889 WBC (Bld) [#/Vol] 11.7 10*3/uL High 4.0-11.0 [facility] Comment on above: Performed By: #### C SOWMYA, BMP #### [facility] ([id number]) [address] [place] [address] 65700 CREATININEon 04-13-2024 Creatinine [Mass/Vol] 1.16 mg/dL High 0.40-1.00 [facility] Comment on above: Result Comment: METH OD TRACEABLE TO IDMS STANDARD Performed By: #### C SOWMYA, BMP #### [facility] ([id number]) [address] [place] [address] 58833 GFR/1.73 sq M.predicted among non-blacks MDRD (S/P/Bld) [Vol rate/Area] 48 mL/min/{1.73_m2} Low >59 [facility] Comment on above: Result Comment: Reported eGFR is based on the CKD-EPI 2020 equation that does not use a race coefficient. Performed By: #### C SOWMYA, BMP #### [facility] ([id number]) [address] [place] [address] 63119 ELECTROLYTESon 04-13-2024 Anion gap [Moles/Vol] 4 mmol/L Low 5-15 [facility] Comment on above: Performed By: #### C SOWMYA, BMP #### [facility] ([id number]) [address] [place] [address] 03271 Chloride [Moles/Vol] 106 mmol/L Normal 98-109 [facility] Comment on above: Performed By: #### C SOWMYA, BMP #### [facility] ([id number]) [address] [place] [address] 94913 CO2 [Moles/Vol] 25 mmol/L Normal 22-32 [facility] Comment on above: Performed By: #### C BCA, BMP #### [facility] ([id number]) [address] [place] [address] 60845 Potassium [Moles/Vol] 4.0 mmol/L Normal 3.5-5.0 [facility] Comment on above: Performed By: #### C BCA, BMP #### [facility] ([id number]) [address] [place] [address] 79014 Sodium [Moles/Vol] 135 mmol/L Normal 134-146 [facility] Comment on above: Performed By: #### C BCA, BMP #### [facility] ([id number]) [address] [place] [address] 08419 BLOOD UREA NITROGENon 2023 Urea nitrogen [Mass/Vol] 19 mg/dL Normal 5-27 [facility] Comment on above: Performed By: #### C SOWMYA, BMP #### [facility] ([id number]) [address] [place] [address] 87165 CBC AND AUTO DIFFon 04-08-20 24 ABSOLUTE BASOPHIL 0.1 X10E9/L Normal 0.0-0.2 [facility] Comment on above: Performed By: #### C SOWMYA, BMP #### [facility] ([id number]) [address] [place] [address] 38128 ABSOLUTE NEUTROPHIL 4.2 X10E9/L Normal 1.5-6.6 [facility] Comment on above: Performed By: #### C SOWMYA, BMP #### [facility] ([id number]) [address] [place] [address] 25455 Basophils/100 WBC (Bld) 1.1 % Normal [facility] Comment on above: Performed By: #### C SOWMYA, BMP #### [facility] ([id number]) [address] [place] [address] 55592 Eosinophils (Bld) [#/Vol] 0.4 10*3/uL Normal 0.0-0.4 [facility] Comment on above: Performed By: #### C SOWMYA, BMP #### [facility] ([id number]) [address] [place] [address] 28641 Eosinophils/100 WBC (Bld) 4.0 % Normal [facility] Comment on above: Performed By: #### C SOWMYA, BMP #### [facility] ([id number]) [address] [place] [address] 75133 Erythrocyte distribution width (RBC) [Ratio] 18.5 % High 11.5-15.0 [facility] Comment on above: Performed By: #### C SOWMYA, BMP #### [facility] ([id number]) [address] [place] [address] Hematocrit (Bld) [Volume fraction] 28.4 % Low 35-47 [facility] Comment on above: Performed By: #### C SOWMYA, BMP #### [facility] ([id number]) [address] [place] [address] 42722 Hemoglobin (Bld) [Mass/Vol] 9.4 g/dL Low 11.7-15.5 [facility] Comment on above: Performed By: #### C SOWMYA, BMP #### [facility] ([id number]) [address] [place] [address] 18668 Lymphocytes (Bld) [#/Vol] 3.3 10*3/uL Normal 1.0-3.5 [facility] Comment on above: Performed By: #### C SOWMYA, BMP #### [facility] ([id number]) [address] [place] [address] 93888 Lymphocytes/100 WBC (Bld) 37.1 % Normal [facility] Comment on above: Performed By: #### C SWOMYA, BMP #### [facility] ([id number]) [address] [place] [address] 37438 MCH (RBC) [Entitic mass] 24.9 pg Low 27-34 [facility] Comment on above: Performed By: #### C SOWMYA, BMP #### [facility] ([id number]) [address] [place] [address] 26588 MCHC (RBC) [Mass/Vol] 33.0 g/dL Normal 32-36 [facility] Comment on above: Performed By: #### C SOWMYA, BMP #### [facility] ([id number]) [address] [place] [address] 11340 MCV (RBC) [Entitic vol] 76 fL Low 80-100 [facility] Comment on above: Performed By: #### C BCA, BMP #### [facility] ([id number]) [address] [place] [address] 55031 Monocytes (Bld) [#/Vol] 1.0 10*3/uL High 0-0.9 [facility] Comment on above: Performed By: #### C SOWMYA, BMP #### [facility] ([id number]) [address] [place] [address] 35494 Monocytes/100 WBC (Bld) 10.9 % Normal [facility] Comment on above: Performed By: #### C SOWMYA, BMP #### [facility] ([id number]) [address] [place] [address] 76152 Neutrophils/100 WBC (Bld) 46.9 % Normal [facility] Comment on above: Performed By: #### C SOWMYA, BMP #### [facility] ([id number]) [address] [place] [address] 02525 Platelet mean volume (Bld) [Entitic vol] 6.7 fL Low 7-12 [facility] Comment on above: Performed By: #### C SOWMYA, BMP #### [facility] ([id number]) [address] [place] [address] 45674 Platelets (Bld) [#/Vol] 367 10*3/uL Normal 150-450 [facility] Comment on above: Performed By: #### C SOWMYA, BMP #### [facility] ([id number]) [address] [place] [address] 13535 RBC COUNT 3.76 X10E12/L Low 3.80-5.20 [facility] Comment on above: Performed By: #### C SOWMYA, BMP #### [facility] ([id number]) [address] [place] [address] 11513 WBC (Bld) [#/Vol] 9.0 10*3/uL Normal 4.0-11.0 [facility] Comment on above: Performed By: #### C BCA, BMP #### [facility] ([id number]) [address] [place] [address] 02625 CREATININEon 04-08-2024 Creatinine [Mass/Vol] 1.09 mg/dL High 0.40-1.00 [facility] Comment on above: Result Comment: METH OD TRACEABLE TO IDMS STANDARD Performed By: #### C SOWMYA, BMP #### [facility] ([id number]) [address] [place] [address] 58737 GFR/1.73 sq M.predicted among non-blacks MDRD (S/P/Bld) [Vol rate/Area] 52 mL/min/{1.73_m2} Low >59 [facility] Comment on above: Result Comment: Reported eGFR is based on the CKD-EPI 2020 equation that does not use a race coefficient. Performed By: #### C SOWMYA, BMP #### [facility] ([id number]) [address] [place] [address] 48634 ELECTROLYTESon 04-08-2024 Anion gap [Moles/Vol] 8 mmol/L Normal 5-15 [facility] Comment on above: Performed By: #### C SOWMYA, BMP #### [facility] ([id number]) [address] [place] [address] 76268 Chloride [Moles/Vol] 107 mmol/L Normal 98-109 [facility] Comment on above: Performed By: #### C BCA, BMP #### [facility] ([id number]) [address] [place] [address] 63854 CO2 [Moles/Vol] 24 mmol/L Normal 22-32 [facility] Comment on above: Performed By: #### C BCA, BMP #### [facility] ([id number]) [address] [place] [address] 51331 Potassium [Moles/Vol] 3.8 mmol/L Normal 3.5-5.0 [facility] Comment on above: Performed By: #### C SOWMYA, BMP #### [facility] ([id number]) [address] [place] [address] 60603 Sodium [Moles/Vol] 139 mmol/L Normal 134-146 [facility] Comment on above: Performed By: #### C SOWMYA, BMP #### [facility] ([id number]) [address] [place] [address] 47386 BLOOD UREA NITROGENon 2023 Urea nitrogen [Mass/Vol] 20 mg/dL Normal 5-27 [facility] Comment on above: Performed By: #### C SOWMYA, BMP #### [facility] ([id number]) [address] [place] [address] 70978 CBC AND AUTO DIFFon 04-02-20 24 ABSOLUTE BASOPHIL 0.1 X10E9/L Normal 0.0-0.2 [facility] Comment on above: Performed By: #### C SOWMYA, BMP #### [facility] ([id number]) [address] [place] [address] 80506 ABSOLUTE NEUTROPHIL 4.8 X10E9/L Normal 1.5-6.6 [facility] Comment on above: Performed By: #### C SOWMYA, BMP #### [facility] ([id number]) [address] [place] [address] 96858 Basophils/100 WBC (Bld) 0.7 % Normal [facility] Comment on above: Performed By: #### C BCA, BMP #### [facility] ([id number]) [address] [place] [address] 58989 Eosinophils (Bld) [#/Vol] 0.2 10*3/uL Normal 0.0-0.4 [facility] Comment on above: Performed By: #### C BCA, BMP #### [facility] ([id number]) [address] [place] [address] 80531 Eosinophils/100 WBC (Bld) 2.5 % Normal [facility] Comment on above: Performed By: #### C SOWMYA, BMP #### [facility] ([id number]) [address] [place] [address] 19866 Erythrocyte distribution width (RBC) [Ratio] 18.6 % High 11.5-15.0 [facility] Comment on above: Performed By: #### C SOWMYA, BMP #### [facility] ([id number]) [address] [place] [address] 14140 Hematocrit (Bld) [Volume fraction] 28.2 % Low 35-47 [facility] Comment on above: Performed By: #### C SOWMYA, BMP #### [facility] ([id number]) [address] [place] [address] 55988 Hemoglobin (Bld) [Mass/Vol] 9.1 g/dL Low 11.7-15.5 [facility] Comment on above: Performed By: #### C SOWMYA, BMP #### [facility] ([id number]) [address] [place] [address] 64494 Lymphocytes (Bld) [#/Vol] 3.2 10*3/uL Normal 1.0-3.5 [facility] Comment on above: Performed By: #### C SOWMYA, BMP #### [facility] ([id number]) [address] [place] [address] 94344 Lymphocytes/100 WBC (Bld) 34.4 % Normal [facility] Comment on above: Performed By: #### C SOWMYA, BMP #### [facility] ([id number]) [address] [place] [address] 88216 MCH (RBC) [Entitic mass] 24.5 pg Low 27-34 [facility] Comment on above: Performed By: #### C SOWMYA, BMP #### [facility] ([id number]) [address] [place] [address] 53580 MCHC (RBC) [Mass/Vol] 32.4 g/dL Normal 32-36 [facility] Comment on above: Performed By: #### C SOWMYA, BMP #### [facility] ([id number]) [address] [place] [address] 77464 MCV (RBC) [Entitic vol] 76 fL Low 80-100 [facility] Comment on above: Performed By: #### C SOWMYA, BMP #### [facility] ([id number]) [address] [place] [address] 73023 Monocytes (Bld) [#/Vol] 1.0 10*3/uL High 0-0.9 [facility] Comment on above: Performed By: #### Timmy DENG, BMP #### [facility] ([id number]) [address] [place] [address] 54721 Monocytes/100 WBC (Bld) 11.1 % Normal [facility] Comment on above: Performed By: #### Timmy DENG, BMP #### [facility] ([id number]) [address] [place] [address] 30261 Neutrophils/100 WBC (Bld) 51.3 % Normal [facility] Comment on above: Performed By: #### Timmy DENG, BMP #### [facility] ([id number]) [address] [place] [address] 18104 Platelet mean volume (Bld) [Entitic vol] 6.9 fL Low 7-12 [facility] Comment on above: Performed By: #### Timmy DENG, BMP #### [facility] ([id number]) [address] [place] [address] 68824 Platelets (Bld) [#/Vol] 319 10*3/uL Normal 150-450 [facility] Comment on above: Performed By: #### C SOWMYA, BMP #### [facility] ([id number]) [address] [place] [address] 02974 RBC COUNT 3.72 X10E12/L Low 3.80-5.20 [facility] Comment on above: Performed By: #### C SOWMYA, BMP #### [facility] ([id number]) [address] [place] [address] 85497 WBC (Bld) [#/Vol] 9.4 10*3/uL Normal 4.0-11.0 [facility] Comment on above: Performed By: #### C SOWMYA, BMP #### [facility] ([id number]) [address] [place] [address] 79436 CREATININEon 04-02-2024 Creatinine [Mass/Vol] 1.13 mg/dL High 0.40-1.00 [facility] Comment on above: Result Comment: METH OD TRACEABLE TO IDMS STANDARD Performed By: #### C SOWMYA, BMP #### [facility] ([id number]) [address] [place] [address] 24858 GFR/1.73 sq M.predicted among non-blacks MDRD (S/P/Bld) [Vol rate/Area] 50 mL/min/{1.73_m2} Low >59 [facility] Comment on above: Result Comment: Reported eGFR is based on the CKD-EPI 2020 equation that does not use a race coefficient. Performed By: #### C SOWMYA, BMP #### [facility] ([id number]) [address] [place] [address] 06345 ELECTROLYTESon 04-02-2024 Anion gap [Moles/Vol] 7 mmol/L Normal 5-15 [facility] Comment on above: Performed By: #### C SOWMYA, BMP #### [facility] ([id number]) [address] [place] [address] 93847 Chloride [Moles/Vol] 107 mmol/L Normal 98-109 [facility] Comment on above: Performed By: #### C BCA, BMP #### [facility] ([id number]) [address] [place] [address] 18636 CO2 [Moles/Vol] 25 mmol/L Normal 22-32 [facility] Comment on above: Performed By: #### C BCA, BMP #### [facility] ([id number]) [address] [place] [address] 70814 Potassium [Moles/Vol] 4.1 mmol/L Normal 3.5-5.0 [facility] Comment on above: Performed By: #### C BCA, BMP #### [facility] ([id number]) [address] [place] [address] 40513 Sodium [Moles/Vol] 139 mmol/L Normal 134-146 [facility] Comment on above: Performed By: #### C BCA, BMP #### [facility] ([id number]) [address] [place] [address] 48027 BASIC METABOLIC PANLon 03-30 Anion gap [Moles/Vol] 8 mmol/L Normal 5-15 [facility] Comment on above: Performed By: #### C BCA, BMP #### [facility] ([id number]) [address] [place] [address] 02303 Calcium [Mass/Vol] 9.1 mg/dL Normal 8.5-10.5 [facility] Comment on above: Performed By: #### C BCA, BMP #### [facility] ([id number]) [address] [place] [address] 12385 Chloride [Moles/Vol] 104 mmol/L Normal 98-109 [facility] Comment on above: Performed By: #### C BCA, BMP #### [facility] ([id number]) [address] [place] [address] [place] [address] CO2 [Moles/Vol] 26 mmol/L Normal 22-32 [facility] Comment on above: Performed By: #### C SOWMYA, BMP #### [facility] ([id number]) [address] [place] [address] 59651 Creatinine [Mass/Vol] 1.14 mg/dL High 0.40-1.00 [facility] Comment on above: Result Comment: METH OD TRACEABLE TO IDMS STANDARD Performed By: #### C SOWMYA, BMP #### [facility] ([id number]) [address] [place] [address] 81425 GFR/1.73 sq M.predicted among non-blacks MDRD (S/P/Bld) [Vol rate/Area] 49 mL/min/{1.73_m2} Low >59 [facility] Comment on above: Result Comment: Reported eGFR is based on the CKD-EPI 2020 equation that does not use a race coefficient. Performed By: #### C SOWMYA, BMP #### [facility] ([id number]) [address] [place] [address] 57432 Glucose [Mass/Vol] 101 mg/dL High 65-99 [facility] Comment on above: Performed By: #### C SOWMYA, BMP #### [facility] ([id number]) [address] [place] [address] 92919 Potassium [Moles/Vol] 4.2 mmol/L Normal 3.5-5.0 [facility] Comment on above: Performed By: #### C SOWMYA, BMP #### [facility] ([id number]) [address] [place] [address] 28463 Sodium [Moles/Vol] 138 mmol/L Normal 134-146 [facility] Comment on above: Performed By: #### C SOWMYA, BMP #### [facility] ([id number]) [address] [place] [address] 30083 Urea nitrogen [Mass/Vol] 21 mg/dL Normal 5-27 [facility] Comment on above: Performed By: #### C SOWMYA, BMP #### [facility] ([id number]) [address] [place] [address] 78963 CBC AND AUTO DIFFon 03-18-20 24 ABSOLUTE BASOPHIL 0.1 X10E9/L Normal 0.0-0.2 [facility] Comment on above: Performed By: #### C SOWMYA, BMP #### [facility] ([id number]) [address] [place] [address] 92081 ABSOLUTE NEUTROPHIL 4.5 X10E9/L Normal 1.5-6.6 [facility] Comment on above: Performed By: #### C SOWMYA, BMP #### [facility] ([id number]) [address] [place] [address] 02284 Basophils/100 WBC (Bld) 0.7 % Normal [facility] Comment on above: Performed By: #### C SOWMYA, BMP #### [facility] ([id number]) [address] [place] [address] 40858 Eosinophils (Bld) [#/Vol] 0.4 10*3/uL Normal 0.0-0.4 [facility] Comment on above: Performed By: #### C SOWMYA, BMP #### [facility] ([id number]) [address] [place] [address] 02613 Eosinophils/100 WBC (Bld) 4.1 % Normal [facility] Comment on above: Performed By: #### C SOWMYA, BMP #### [facility] ([id number]) [address] [place] [address] 20705 Erythrocyte distribution width (RBC) [Ratio] 18.8 % High 11.5-15.0 [facility] Comment on above: Performed By: #### C SOWMYA, BMP #### [facility] ([id number]) [address] [place] [address] 79561 Hematocrit (Bld) [Volume fraction] 28.0 % Low 35-47 [facility] Comment on above: Performed By: #### C SOWMYA, BMP #### [facility] ([id number]) [address] [place] [address] 72691 Hemoglobin (Bld) [Mass/Vol] 9.1 g/dL Low 11.7-15.5 [facility] Comment on above: Performed By: #### C SOWMYA, BMP #### [facility] ([id number]) [address] [place] [address] 93597 Lymphocytes (Bld) [#/Vol] 2.9 10*3/uL Normal 1.0-3.5 [facility] Comment on above: Performed By: #### C SOWMYA, BMP #### [facility] ([id number]) [address] [place] [address] 96523 Lymphocytes/100 WBC (Bld) 33.2 % Normal [facility] Comment on above: Performed By: #### C SOWMYA, BMP #### [facility] ([id number]) [address] [place] [address] 70283 MCH (RBC) [Entitic mass] 24.4 pg Low 27-34 [facility] Comment on above: Performed By: #### C SOWMYA, BMP #### [facility] ([id number]) [address] [place] [address] 86414 MCHC (RBC) [Mass/Vol] 32.3 g/dL Normal 32-36 [facility] Comment on above: Performed By: #### C SOWMYA, BMP #### [facility] ([id number]) [address] [place] [address] 37997 MCV (RBC) [Entitic vol] 76 fL Low 80-100 [facility] Comment on above: Performed By: #### C SOWMYA, BMP #### [facility] ([id number]) [address] [place] [address] 94866 Monocytes (Bld) [#/Vol] 0.8 10*3/uL Normal 0-0.9 [facility] Comment on above: Performed By: #### C SOWMYA, BMP #### [facility] ([id number]) [address] [place] [address] 81623 Monocytes/100 WBC (Bld) 9.4 % Normal [facility] Comment on above: Performed By: #### C SOWMYA, BMP #### [facility] ([id number]) [address] [place] [address] 21064 Neutrophils/100 WBC (Bld) 52.6 % Normal [facility] Comment on above: Performed By: #### C SOWMYA, BMP #### [facility] ([id number]) [address] [place] [address] 84614 Platelet mean volume (Bld) [Entitic vol] 6.8 fL Low 7-12 [facility] Comment on above: Performed By: #### C SOWMYA, BMP #### [facility] ([id number]) [address] [place] [address] 29522 Platelets (Bld) [#/Vol] 405 10*3/uL Normal 150-450 [facility] Comment on above: Performed By: #### C SOWMYA, BMP #### [facility] ([id number]) [address] [place] [address] 52742 RBC COUNT 3.71 X10E12/L Low 3.80-5.20 [facility] Comment on above: Performed By: #### C SOWMYA, BMP #### [facility] ([id number]) [address] [place] [address] 89310 WBC (Bld) [#/Vol] 8.6 10*3/uL Normal 4.0-11.0 [facility] Comment on above: Performed By: #### C SOWMYA, BMP #### [facility] ([id number]) [address] [place] [address] 32797 BLOOD UREA NITROGENon 2023 Urea nitrogen [Mass/Vol] 14 mg/dL Normal 5-27 [facility] Comment on above: Performed By: #### C SOWMYA, BMP #### [facility] ([id number]) [address] [place] [address] 19716 CBC AND AUTO DIFFon 03-11-20 ABSOLUTE BASOPHIL 0.1 X10E9/L Normal 0.0-0.2 [facility] Comment on above: Performed By: #### C SOWMYA, BMP #### [facility] ([id number]) [address] [place] [address] 09827 ABSOLUTE NEUTROPHIL 6.8 X10E9/L High 1.5-6.6 [facility] Comment on above: Performed By: #### C SOWMYA, BMP #### [facility] ([id number]) [address] [place] [address] 87670 Basophils/100 WBC (Bld) 0.6 % Normal [facility] Comment on above: Performed By: #### C SOWMYA, BMP #### [facility] ([id number]) [address] [place] [address] 20912 Eosinophils (Bld) [#/Vol] 0.4 10*3/uL Normal 0.0-0.4 [facility] Comment on above: Performed By: #### C SOWMYA, BMP #### [facility] ([id number]) [address] [place] [address] 27196 Eosinophils/100 WBC (Bld) 3.7 % Normal [facility] Comment on above: Performed By: #### C SOWMYA, BMP #### [facility] ([id number]) [address] [place] [address] 94625 Erythrocyte distribution width (RBC) [Ratio] 18.8 % High 11.5-15.0 [facility] Comment on above: Performed By: #### C SOWMYA, BMP #### [facility] ([id number]) [address] [place] [address] 97431 Hematocrit (Bld) [Volume fraction] 27.4 % Low 35-47 [facility] Comment on above: Performed By: #### C SOWMYA, BMP #### [facility] ([id number]) [address] [place] [address] 93592 Hemoglobin (Bld) [Mass/Vol] 8.8 g/dL Low 11.7-15.5 [facility] Comment on above: Performed By: #### C SOWMYA, BMP #### [facility] ([id number]) [address] [place] [address] 79188 Lymphocytes (Bld) [#/Vol] 3.3 10*3/uL Normal 1.0-3.5 [facility] Comment on above: Performed By: #### C SOWMYA, BMP #### [facility] ([id number]) [address] [place] [address] 81487 Lymphocytes/100 WBC (Bld) 27.7 % Normal [facility] Comment on above: Performed By: #### C SOWMYA, BMP #### [facility] ([id number]) [address] [place] [address] 80721 MCH (RBC) [Entitic mass] 24.7 pg Low 27-34 [facility] Comment on above: Performed By: #### C SOWMYA, BMP #### [facility] ([id number]) [address] [place] [address] 63446 MCHC (RBC) [Mass/Vol] 32.3 g/dL Normal 32-36 [facility] Comment on above: Performed By: #### C SOWMYA, BMP #### [facility] ([id number]) [address] [place] [address] 32445 MCV (RBC) [Entitic vol] 77 fL Low 80-100 [facility] Comment on above: Performed By: #### C SOWMYA, BMP #### [facility] ([id number]) [address] [place] [address] 23822 Monocytes (Bld) [#/Vol] 1.2 10*3/uL High 0-0.9 [facility] Comment on above: Performed By: #### C SOWMYA, BMP #### [facility] ([id number]) [address] [place] [address] 09120 Monocytes/100 WBC (Bld) 10.4 % Normal [facility] Comment on above: Performed By: #### C SOWMYA, BMP #### [facility] ([id number]) [address] [place] [address] 30935 Neutrophils/100 WBC (Bld) 57.6 % Normal [facility] Comment on above: Performed By: #### C SOWMYA, BMP #### [facility] ([id number]) [address] [place] [address] 95142 Platelet mean volume (Bld) [Entitic vol] 7.3 fL Normal 7-12 [facility] Comment on above: Performed By: #### C SOWMYA, BMP #### [facility] ([id number]) [address] [place] [address] [id number] Platelets (Bld) [#/Vol] 255 10*3/uL Normal 150-450 [facility] Comment on above: Performed By: #### C SOWMYA, BMP #### [facility] ([id number]) [address] [place] [address] 88502 RBC COUNT 3.58 X10E12/L Low 3.80-5.20 [facility] Comment on above: Performed By: #### C SOWMYA, BMP #### [facility] ([id number]) [address] [place] [address] 80854 WBC (Bld) [#/Vol] 11.8 10*3/uL High 4.0-11.0 [facility] Comment on above: Performed By: #### C SOWMYA, BMP #### [facility] ([id number]) [address] [place] [address] 19648 CREATININEon 03-11-2024 Creatinine [Mass/Vol] 1.09 mg/dL High 0.40-1.00 [facility] Comment on above: Result Comment: METH OD TRACEABLE TO IDMS STANDARD Performed By: #### C SOWMYA, BMP #### [facility] ([id number]) [address] [place] [address] 09301 GFR/1.73 sq M.predicted among non-blacks MDRD (S/P/Bld) [Vol rate/Area] 52 mL/min/{1.73_m2} Low >59 [facility] Comment on above: Result Comment: Reported eGFR is based on the CKD-EPI 2020 equation that does not use a race coefficient. Performed By: #### C BCA, BMP #### [facility] ([id number]) [address] [place] [address] 39060 ELECTROLYTESon 03-11-2024 Anion gap [Moles/Vol] 7 mmol/L Normal 5-15 [facility] Comment on above: Performed By: #### E LEC, 3094-0, SECURITIES COUNSELOR, CBCA #### [facility] ([id number]) [address] [place] [address] 80660 Chloride [Moles/Vol] 106 mmol/L Normal 98-109 [facility] Comment on above: Performed By: #### E LEC, 3094-0, SECURITIES COUNSELOR, CBCA #### [facility] ([id number]) [address] [place] [address] [place] [address] CO2 [Moles/Vol] 27 mmol/L Normal 22-32 [facility] Comment on above: Performed By: #### E LEC, 3094-0, SECURITIES COUNSELOR, CBCA #### [facility] ([id number]) [address] [place] [address] 25587 Potassium [Moles/Vol] 4.2 mmol/L Normal 3.5-5.0 [facility] Comment on above: Performed By: #### E LEC, 3094-0, SECURITIES COUNSELOR, CBCA #### [facility] ([id number]) [address] [place] [address] 93450 Sodium [Moles/Vol] 140 mmol/L Normal 134-146 [facility] Comment on above: Performed By: #### Analy LEC, 3094-0, SECURITIES COUNSELOR, CBCA #### [facility] ([id number]) [address] [place] [address] 39644 CBC AND AUTO DIFFon 03-05-20 24 ABSOLUTE BASOPHIL 0.1 X10E9/L Normal 0.0-0.2 [facility] Comment on above: Performed By: #### C BCA #### [facility] ([id number]) [address] [place] [address] 42305 #### [id number] #### [facility] ([id number]) [address], [address] [place] [address] ABSOLUTE NEUTROPHIL 6.2 X10E9/L Normal 1.5-6.6 [facility] Comment on above: Performed By: #### C BCA #### [facility] ([id number]) [address] [place] [address] 80179 #### [id number] #### [facility] ([id number]) [address] [address] [place] [address] Basophils/100 WBC (Bld) 0.6 % Normal [facility] Comment on above: Performed By: #### C BCA #### [facility] ([id number]) [address] [place] [address] 11349 #### [id number] #### [facility] ([id number]) [address], [address] [place] [address] Eosinophils (Bld) [#/Vol] 0.3 10*3/uL Normal 0.0-0.4 [facility] Comment on above: Performed By: #### C BCA #### [facility] ([id number]) [address] [place] [address] 62672 #### 03181-5 #### [facility] ([id number]) [address], [address] [place] [address] Eosinophils/100 WBC (Bld) 2.4 % Normal [facility] Comment on above: Performed By: #### C BCA #### [facility] ([id number]) [address] [place] [address] 67057 #### 99702-2 #### [facility] ([id number]) [address], [address] [place] [address] Erythrocyte distribution width (RBC) [Ratio] 18.9 % High 11.5-15.0 [facility] Comment on above: Performed By: #### C BCA #### [facility] ([id number]) [address] [place] [address] 43543 #### 03970-3 #### [facility] ([id number]) [address], [address] [place] [address] Hematocrit (Bld) [Volume fraction] 30.3 % Low 35-47 [facility] Comment on above: Performed By: #### C BCA #### [facility] ([id number]) [address] [place] [address] 12930 #### 70621-5 #### [facility] ([id number]) [address] [facility], [address] [place] [address] Hemoglobin (Bld) [Mass/Vol] 9.7 g/dL Low 11.7-15.5 [facility] Comment on above: Performed By: #### C BCA #### [facility] ([id number]) [address] [place] [address] 98595 #### 50407-0 #### [facility] ([id number]) [address] [facility], [address] [place] [address] Lymphocytes (Bld) [#/Vol] 3.8 10*3/uL High 1.0-3.5 [facility] Comment on above: Performed By: #### C BCA #### [facility] ([id number]) [address] [place] [address] 12562 #### 56622-1 #### [facility] ([id number]) [address] [place] [address], [address] [place] [address] Lymphocytes/100 WBC (Bld) 32.9 % Normal [facility] Comment on above: Performed By: #### C BCA #### [facility] ([id number]) [address] [place] [address] 68490 #### 11720-4 #### [facility] ([id number]) [address] [facility], [address] [place] [address] MCH (RBC) [Entitic mass] 24.6 pg Low 27-34 [facility] Comment on above: Performed By: #### C BCA #### [facility] ([id number]) [address] [place] [address] 71480 #### 65725-4 #### [facility] ([id number]) [address], [address] [place] [address] MCHC (RBC) [Mass/Vol] 32.1 g/dL Normal 32-36 [facility] Comment on above: Performed By: #### C BCA #### [facility] ([id number]) [address] [place] [address] 22460 #### 14428-0 #### [facility] ([id number]) [address] [place] [address] MCV (RBC) [Entitic vol] 77 fL Low 80-100 [facility] Comment on above: Performed By: #### C BCA #### [facility] ([id number]) [address] [place] [address] 94451 #### 67292-3 #### [facility] ([id number]) [address], [address] [place] [address] Monocytes (Bld) [#/Vol] 1.3 10*3/uL High 0-0.9 [facility] Comment on above: Performed By: #### C BCA #### [facility] ([id number]) [address] [place] [address] 08023 #### 05468-8 #### [facility] ([id number]) [address], [address] [place] [address] Monocytes/100 WBC (Bld) 11.0 % Normal [facility] Comment on above: Performed By: #### C BCA #### [facility] ([id number]) [address] [place] [address] 98938 #### 07135-8 #### [facility] ([id number]) [address], [address] [place] [address] Neutrophils/100 WBC (Bld) 53.1 % Normal [facility] Comment on above: Performed By: #### C BCA #### [facility] ([id number]) [address] [place] [address] 91370 #### 00100-8 #### [facility] ([id number]) [address] [place] [address] Platelet mean volume (Bld) [Entitic vol] 7.5 fL Normal 7-12 [facility] Comment on above: Performed By: #### C BCA #### [facility] ([id number]) [address] [place] [address] 57459 #### 92974-4 #### [facility] ([id number]) [address], [address] [place] [address] Platelets (Bld) [#/Vol] 320 10*3/uL Normal 150-450 [facility] Comment on above: Performed By: #### C BCA #### [facility] ([id number]) [address] [place] [address] 64434 #### 74878-8 #### [facility] ([id number]) [address] [place] [address] RBC COUNT 3.96 X10E12/L Normal 3.80-5.20 [facility] Comment on above: Performed By: #### C BCA #### [facility] ([id number]) [address] [place] [address] 64274 #### 33617-0 #### [facility] ([id number]) [address] [place] [address] WBC (Bld) [#/Vol] 11.7 10*3/uL High 4.0-11.0 [facility] Comment on above: Performed By: #### C BCA #### [facility] ([id number]) [address] [place] [address] 85953 #### 72877-9 #### [facility] ([id number]) [address], [address] [place] [address] ESR Photometric method (Bld) [Velocity]on 03-05-2024 ESR, ERYTHROCYTE SEDIMENTATION RATE 43 mm/h High 0-30 [facility] Comment on above: Performed By: #### C BCA #### [facility] ([id number]) [address] [place] [address] 89174 #### 66030-2 #### [facility] ([id number]) [address] [facility] [place] [address] FL SWALLOW MOTILITY FUNCTION on 03-04-2024 FL [...] Dowell MD on 03/04/2024 10:58 AM Normal [facility] URINALYSISon 03-03-2024 Bilirubin Ql (U) Negative Normal NEG [facility] Comment on above: Performed By: #### U A #### [facility] ([id number]) [address] [place] [address] 71496 BLOOD/HGB Negative Normal NEG [facility] Comment on above: Performed By: #### U A #### [facility] ([id number]) [address] [place] [address] 34838 Color (U) YELLOW Normal YELLOW [facility] Comment on above: Performed By: #### U A #### [facility] ([id number]) [address] [place] [address] 64266 Glucose Ql (U) Negative Normal NEG [facility] Comment on above: Performed By: #### U A #### [facility] ([id number]) [address] [place] [address] [place] [address] Ketones Ql (U) Negative Normal NEG [facility] Comment on above: Performed By: #### U A #### [facility] ([id number]) [address] [place] [address] 77416 Leukocyte esterase Test strip Ql (U) Negative Normal NEG [facility] Comment on above: Performed By: #### U A #### [facility] ([id number]) [address] [place] [address] 53676 Nitrite Ql (U) Negative Normal NEG [facility] Comment on above: Performed By: #### U A #### [facility] ([id number]) [address] [place] [address] 04404 pH (U) 6.0 [pH] Normal 5.0-8.5 [facility] Comment on above: Performed By: #### U A #### [facility] ([id number]) [address] [place] [address] 50169 Protein Ql (U) Negative Normal NEG [facility] Comment on above: Performed By: #### U A #### [facility] ([id number]) [address] [place] [address] [place] [address] Specific gravity (U) [Rel density] 1.020 Normal 1.003-1.03 5 [facility] Comment on above: Performed By: #### U A #### [facility] ([id number]) [address] [place] [address] 45241 TURBIDITY CLEAR Normal CLEAR [facility] Comment on above: Performed By: #### U A #### [facility] ([id number]) [address] [place] [address] 27784 Urobilinogen Qn (U) 0.2 {Jose'U}/dL Normal <1.1 [facility] Comment on above: Performed By: #### U A #### [facility] ([id number]) [address] [place] [address] 17962 URINE CULTUREon 03-03-2024 Bacteria identified Cx Nom (U) CULTURE RESULTS NO GROWTH AT <1000 CFU/mL Normal [facility] Comment on above: Performed By: #### 6 30-4 #### [facility] ([id number]) [address] [place] [address], [address] [place] [address] BASIC METABOLIC PANLon 03-02 Anion gap [Moles/Vol] 9 mmol/L Normal 5-15 [facility] Comment on above: Performed By: #### C BCA, BMP #### [facility] ([id number]) [address] [place] [address] 39742 Calcium [Mass/Vol] 8.4 mg/dL Low 8.5-10.5 [facility] Comment on above: Performed By: #### C BCA, BMP #### [facility] ([id number]) [address] [place] [address] 91362 Chloride [Moles/Vol] 106 mmol/L Normal 98-109 [facility] Comment on above: Performed By: #### C BCA, BMP #### [facility] ([id number]) [address] [place] [address] 55293 CO2 [Moles/Vol] 27 mmol/L Normal 22-32 [facility] Comment on above: Performed By: #### C BCA, BMP #### [facility] ([id number]) [address] [place] [address] 10854 Creatinine [Mass/Vol] 1.13 mg/dL High 0.40-1.00 [facility] Comment on above: Result Comment: METH OD TRACEABLE TO IDMS STANDARD Performed By: #### C BCA, BMP #### [facility] ([id number]) [address] [place] [address] 17135 GFR/1.73 sq M.predicted among non-blacks MDRD (S/P/Bld) [Vol rate/Area] 50 mL/min/{1.73_m2} Low >59 [facility] Comment on above: Result Comment: Reported eGFR is based on the CKD-EPI 2020 equation that does not use a race coefficient. Performed By: #### C BCA, BMP #### [facility] ([id number]) [address] [place] [address] 96919 Glucose [Mass/Vol] 106 mg/dL High 65-99 [facility] Comment on above: Performed By: #### C BCA, BMP #### [facility] ([id number]) [address] [place] [address] 28564 Potassium [Moles/Vol] 3.4 mmol/L Low 3.5-5.0 [facility] Comment on above: Performed By: #### C BCA, BMP #### [facility] ([id number]) [address] [place] [address] 00458 Sodium [Moles/Vol] 142 mmol/L Normal 134-146 [facility] Comment on above: Performed By: #### C BCA, BMP #### [facility] ([id number]) [address] [place] [address] 75782 Urea nitrogen [Mass/Vol] 35 mg/dL High 5-27 [facility] Comment on above: Performed By: #### C BCA, BMP #### [facility] ([id number]) [address] [place] [address] 99406 CBC AND AUTO DIFFon 03-02-20 24 ABSOLUTE BASOPHIL 0.1 X10E9/L Normal 0.0-0.2 [facility] Comment on above: Performed By: #### C SOWMYA, BMP #### [facility] ([id number]) [address] [place] [address] 62676 ABSOLUTE NEUTROPHIL 7.0 X10E9/L High 1.5-6.6 [facility] Comment on above: Performed By: #### C SOWMYA, BMP #### [facility] ([id number]) [address] [place] [address] 81280 Basophils/100 WBC (Bld) 0.6 % Normal [facility] Comment on above: Performed By: #### Timmy DENG, BMP #### [facility] ([id number]) [address] [place] [address] 68754 Eosinophils (Bld) [#/Vol] 0.1 10*3/uL Normal 0.0-0.4 [facility] Comment on above: Performed By: #### Timmy DENG, BMP #### [facility] ([id number]) [address] [place] [address] 14763 Eosinophils/100 WBC (Bld) 0.5 % Normal [facility] Comment on above: Performed By: #### Timmy DENG, BMP #### [facility] ([id number]) [address] [place] [address] 59764 Erythrocyte distribution width (RBC) [Ratio] 18.2 % High 11.5-15.0 [facility] Comment on above: Performed By: #### Timmy DENG, BMP #### [facility] ([id number]) [address] [place] [address] 13711 Hematocrit (Bld) [Volume fraction] 30.8 % Low 35-47 [facility] Comment on above: Performed By: #### C SOWMYA, BMP #### [facility] ([id number]) [address] [place] [address] 94136 Hemoglobin (Bld) [Mass/Vol] 10.0 g/dL Low 11.7-15.5 [facility] Comment on above: Performed By: #### C SOWMYA, BMP #### [facility] ([id number]) [address] [place] [address] 46240 Lymphocytes (Bld) [#/Vol] 4.1 10*3/uL High 1.0-3.5 [facility] Comment on above: Performed By: #### C SOWMYA, BMP #### [facility] ([id number]) [address] [place] [address] 52547 Lymphocytes/100 WBC (Bld) 32.1 % Normal [facility] Comment on above: Performed By: #### C SOWMYA, BMP #### [facility] ([id number]) [address] [place] [address] 33562 MCH (RBC) [Entitic mass] 24.9 pg Low 27-34 [facility] Comment on above: Performed By: #### C SOWMYA, BMP #### [facility] ([id number]) [address] [place] [address] 36730 MCHC (RBC) [Mass/Vol] 32.3 g/dL Normal 32-36 [facility] Comment on above: Performed By: #### C SOWMYA, BMP #### [facility] ([id number]) [address] [place] [address] 73051 MCV (RBC) [Entitic vol] 77 fL Low 80-100 [facility] Comment on above: Performed By: #### C BCA, BMP #### [facility] ([id number]) [address] [place] [address] 25506 Monocytes (Bld) [#/Vol] 1.5 10*3/uL High 0-0.9 [facility] Comment on above: Performed By: #### C SOWMYA, BMP #### [facility] ([id number]) [address] [place] [address] 56430 Monocytes/100 WBC (Bld) 11.5 % Normal [facility] Comment on above: Performed By: #### C SOWMYA, BMP #### [facility] ([id number]) [address] [place] [address] 47945 Neutrophils/100 WBC (Bld) 55.3 % Normal [facility] Comment on above: Performed By: #### C SOWMYA, BMP #### [facility] ([id number]) [address] [place] [address] 15901 Platelet mean volume (Bld) [Entitic vol] 7.4 fL Normal 7-12 [facility] Comment on above: Performed By: #### C SOWMYA, BMP #### [facility] ([id number]) [address] [place] [address] 84267 Platelets (Bld) [#/Vol] 360 10*3/uL Normal 150-450 [facility] Comment on above: Performed By: #### C SOWMYA, BMP #### [facility] ([id number]) [address] [place] [address] 01319 RBC COUNT 4.00 X10E12/L Normal 3.80-5.20 [facility] Comment on above: Performed By: #### C SOWMYA, BMP #### [facility] ([id number]) [address] [place] [address] 54964 WBC (Bld) [#/Vol] 12.7 10*3/uL High 4.0-11.0 [facility] Comment on above: Performed By: #### C SOWMYA, BMP #### [facility] ([id number]) [address] [place] [address] 01045 BASIC METABOLIC PANLon 02-26 Anion gap [Moles/Vol] 8 mmol/L Normal 5-15 [facility] Comment on above: Performed By: #### C BCA, BMP #### [facility] ([id number]) [address] [place] [address] 20835 Calcium [Mass/Vol] 8.7 mg/dL Normal 8.5-10.5 [facility] Comment on above: Performed By: #### C BCA, BMP #### [facility] ([id number]) [address] [place] [address] 33012 Chloride [Moles/Vol] 97 mmol/L Low 98-109 [facility] Comment on above: Performed By: #### C SOWMYA, BMP #### [facility] ([id number]) [address] [place] [address] 09529 CO2 [Moles/Vol] 29 mmol/L Normal 22-32 [facility] Comment on above: Performed By: #### C BCA, BMP #### [facility] ([id number]) [address] [place] [address] 14770 Creatinine [Mass/Vol] 1.22 mg/dL High 0.40-1.00 [facility] Comment on above: Result Comment: METH OD TRACEABLE TO IDMS STANDARD Performed By: #### C BCA, BMP #### [facility] ([id number]) [address] [place] [address] 89697 GFR/1.73 sq M.predicted among non-blacks MDRD (S/P/Bld) [Vol rate/Area] 45 mL/min/{1.73_m2} Low >59 [facility] Comment on above: Result Comment: Reported eGFR is based on the CKD-EPI 2020 equation that does not use a race coefficient. Performed By: #### C BCA, BMP #### [facility] ([id number]) [address] [place] [address] 90558 Glucose [Mass/Vol] 123 mg/dL High 65-99 [facility] Comment on above: Performed By: #### C SOWMYA, BMP #### [facility] ([id number]) [address] [place] [address] 81412 Potassium [Moles/Vol] 4.0 mmol/L Normal 3.5-5.0 [facility] Comment on above: Performed By: #### C SOWMYA, BMP #### [facility] ([id number]) [address] [place] [address] 47135 Sodium [Moles/Vol] 134 mmol/L Normal 134-146 [facility] Comment on above: Performed By: #### C SOWMYA, BMP #### [facility] ([id number]) [address] [place] [address] 81555 Urea nitrogen [Mass/Vol] 35 mg/dL High 5-27 [facility] Comment on above: Performed By: #### C SOWMYA, BMP #### [facility] ([id number]) [address] [place] [address] 57747 CBC AND AUTO DIFFon 02-27-20 24 Eosinophils (Bld) [#/Vol] 0.2 10*3/uL Normal 0.0-0.4 [facility] Comment on above: Performed By: #### C SOWMYA, BMP #### [facility] ([id number]) [address] [place] [address] 31036 Eosinophils/100 WBC (Bld) 1.0 % Normal [facility] Comment on above: Performed By: #### C SOWMYA, BMP #### [facility] ([id number]) [address] [place] [address] 67403 Erythrocyte distribution width (RBC) [Ratio] 18.2 % High 11.5-15.0 [facility] Comment on above: Performed By: #### C SOWMYA, BMP #### [facility] ([id number]) [address] [place] [address] 72221 Hematocrit (Bld) [Volume fraction] 35.1 % Normal 35-47 [facility] Comment on above: Performed By: #### C SOWMYA, BMP #### [facility] ([id number]) [address] [place] [address] 78200 Hemoglobin (Bld) [Mass/Vol] 11.4 g/dL Low 11.7-15.5 [facility] Comment on above: Performed By: #### C SOWMYA, BMP #### [facility] ([id number]) [address] [place] [address] 69256 Lymphocytes (Bld) [#/Vol] 4.0 10*3/uL High 1.0-3.5 [facility] Comment on above: Performed By: #### C SOWMYA, BMP #### [facility] ([id number]) [address] [place] [address] 99344 Lymphocytes/100 WBC (Bld) 21.0 % Normal [facility] Comment on above: Performed By: #### C SOWMYA, BMP #### [facility] ([id number]) [address] [place] [address] 38535 MCH (RBC) [Entitic mass] 24.6 pg Low 27-34 [facility] Comment on above: Performed By: #### C SOWMYA, BMP #### [facility] ([id number]) [address] [place] [address] 95561 MCHC (RBC) [Mass/Vol] 32.5 g/dL Normal 32-36 [facility] Comment on above: Performed By: #### C SOWMYA, BMP #### [facility] ([id number]) [address] [place] [address] 76253 MCV (RBC) [Entitic vol] 76 fL Low 80-100 [facility] Comment on above: Performed By: #### C SOWMYA, BMP #### [facility] ([id number]) [address] [place] [address] 62964 Monocytes (Bld) [#/Vol] 1.4 10*3/uL High 0-0.9 [facility] Comment on above: Performed By: #### C SOWMYA, BMP #### [facility] ([id number]) [address] [place] [address] 37999 Monocytes/100 WBC (Bld) 7.6 % Normal [facility] Comment on above: Performed By: #### C SOWMYA, BMP #### [facility] ([id number]) [address] [place] [address] 15679 MYELOCYTE 1.0 % Normal [facility] Comment on above: Performed By: #### C SOWMYA, BMP #### [facility] ([id number]) [address] [place] [address] 00816 Neutrophils (Bld) [#/Vol] 13.1 10*3/uL High 1.5-6.6 [facility] Comment on above: Performed By: #### C SOWMYA, BMP #### [facility] ([id number]) [address] [place] [address] 39532 Platelet mean volume (Bld) [Entitic vol] 7.2 fL Normal 7-12 [facility] Comment on above: Performed By: #### C SOWMYA, BMP #### [facility] ([id number]) [address] [place] [address] 46004 Platelets (Bld) [#/Vol] 398 10*3/uL Normal 150-450 [facility] Comment on above: Performed By: #### C SOWMYA, BMP #### [facility] ([id number]) [address] [place] [address] 83276 RBC COUNT 4.63 X10E12/L Normal 3.80-5.20 [facility] Comment on above: Performed By: #### C SOWMYA, BMP #### [facility] ([id number]) [address] [place] [address]18 SEG NEUTROPHIL 69.4 % Normal [facility] Comment on above: Performed By: #### C SOWMYA, BMP #### [facility] ([id number]) [address] [place] [address] WBC (Bld) [#/Vol] 18.9 10*3/uL High 4.0-11.0 [facility] Comment on above: Performed By: #### C SOWMYA, BMP #### [facility] ([id number]) [address] [place] [address]4670 CBC AND AUTO DIFFon 02-25-20 24 Band form neutrophils/100 WBC (Bld) 1.0 % Normal [facility] Comment on above: Performed By: #### E LEC #### [facility] ([id number]) [address], [address] [place] [address] Erythrocyte distribution width (RBC) [Ratio] 18.4 % High 11.5-15.0 [facility] Comment on above: Performed By: #### E LEC #### [facility] ([id number]) [address], [address] [place] [address] Hematocrit (Bld) [Volume fraction] 36.0 % Normal 35-47 [facility] Comment on above: Performed By: #### E LEC #### [facility] ([id number]) [address], [address] [place] [address] Hemoglobin (Bld) [Mass/Vol] 11.6 g/dL Low 11.7-15.5 [facility] Comment on above: Performed By: #### E LEC #### [facility] ([id number]) [address], [address] [place] [address] HYPOCHROMIA 1+ Abnormal NONE [facility] Comment on above: Performed By: #### E LEC #### [facility] ([id number]) [address], [address] [place] [address] Lymphocytes (Bld) [#/Vol] 4.6 10*3/uL High 1.0-3.5 [facility] Comment on above: Performed By: #### E LEC #### [facility] ([id number]) [address], [address] [place] [address] Lymphocytes/100 WBC (Bld) 28.0 % Normal [facility] Comment on above: Performed By: #### E LEC #### [facility] ([id number]) [address], [address] [place] [address] MCH (RBC) [Entitic mass] 24.9 pg Low 27-34 [facility] Comment on above: Performed By: #### E LEC #### [facility] ([id number]) [address], [address] [place] [address] MCHC (RBC) [Mass/Vol] 32.3 g/dL Normal 32-36 [facility] Comment on above: Performed By: #### E LEC #### [facility] ([id number]) [address], [address] [place] [address] MCV (RBC) [Entitic vol] 77 fL Low 80-100 [facility] Comment on above: Performed By: #### E LEC #### [facility] ([id number]) [address], [address] [place] [address] Monocytes (Bld) [#/Vol] 1.3 10*3/uL High 0-0.9 [facility] Comment on above: Performed By: #### E LEC #### [facility] ([id number]) [address], [address] [place] [address] Monocytes/100 WBC (Bld) 8.0 % Normal [facility] Comment on above: Performed By: #### E LEC #### [facility] ([id number]) [address], [address] [place] [address] MYELOCYTE 1.0 % Normal [facility] Comment on above: Performed By: #### E LEC #### [facility] ([id number]) [address], [address] [place] [address] Neutrophils (Bld) [#/Vol] 10.2 10*3/uL High 1.5-6.6 [facility] Comment on above: Performed By: #### E LEC #### [facility] ([id number]) [address], [address] [place] [address] Platelet mean volume (Bld) [Entitic vol] 6.8 fL Low 7-12 [facility] Comment on above: Performed By: #### E LEC #### [facility] ([id number]) [address], [address] [place] [address] Platelets (Bld) [#/Vol] 480 10*3/uL High 150-450 [facility] Comment on above: Performed By: #### E LEC #### [facility] ([id number]) [address], [address] [place] [address] RBC COUNT 4.66 X10E12/L Normal 3.80-5.20 [facility] Comment on above: Performed By: #### E LEC #### [facility] ([id number]) [address], [address] [place] [address] SEG NEUTROPHIL 62.0 % Normal [facility] Comment on above: Performed By: #### E LEC #### [facility] ([id number]) [address], [address] [place] [address] WBC (Bld) [#/Vol] 16.3 10*3/uL High 4.0-11.0 [facility] Comment on above: Performed By: #### E LEC #### [facility] ([id number]) [address], [address] [place] [address] COMPREHENSIVE METABOLIC PANE Harsha 02-25-2024 Albumin [Mass/Vol] 2.8 g/dL Low 3.2-5.3 [facility] Comment on above: Performed By: #### E LEC #### [facility] ([id number]) [address] [facility] [place] [address] ALP [Catalytic activity/Vol] 61 U/L Normal 39-130 [facility] Comment on above: Performed By: #### E LEC #### [facility] ([id number]) [address], [address] [place] [address] ALT [Catalytic activity/Vol] 16 U/L Normal 0-31 [facility] Comment on above: Performed By: #### E LEC #### [facility] ([id number]) [address], [address] [place] [address] Anion gap [Moles/Vol] 8 mmol/L Normal 5-15 [facility] Comment on above: Performed By: #### E LEC #### [facility] ([id number]) [address], [address] [place] [address] AST [Catalytic activity/Vol] 20 U/L Normal 0-41 [facility] Comment on above: Performed By: #### E LEC #### [facility] ([id number]) [address], [address] [place] [address] Bilirubin [Mass/Vol] 0.3 mg/dL Normal 0.3-1.2 [facility] Comment on above: Performed By: #### E LEC #### [facility] ([id number]) [address], [address] [place] [address] Calcium [Mass/Vol] 9.1 mg/dL Normal 8.5-10.5 [facility] Comment on above: Performed By: #### E LEC #### [facility] ([id number]) [address], [address] [place] [address] Chloride [Moles/Vol] 101 mmol/L Normal 98-109 [facility] Comment on above: Performed By: #### E LEC #### [facility] ([id number]) [address], [address] [place] [address] CO2 [Moles/Vol] 29 mmol/L Normal 22-32 [facility] Comment on above: Performed By: #### E LEC #### [facility] ([id number]) [address] [address] [place] [address] Creatinine [Mass/Vol] 1.16 mg/dL High 0.40-1.00 [facility] Comment on above: Result Comment: METH OD TRACEABLE TO IDMS STANDARD Performed By: #### E LEC #### [facility] ([id number]) [address] [address] GFR/1.73 sq M.predicted among non-blacks MDRD (S/P/Bld) [Vol rate/Area] 48 mL/min/{1.73_m2} Low >59 [facility] Comment on above: Result Comment: Reported eGFR is based on the CKD-EPI 1 equation that does not use a race coefficient. Performed By: #### E LEC #### [facility] ([id number]) [address] [address] [place] [address] Glucose [Mass/Vol] 73 mg/dL Normal 65-99 [facility] Comment on above: Performed By: #### E LEC #### [facility] ([id number]) [address], [address] [place] [address] Potassium [Moles/Vol] 5.0 mmol/L Normal 3.5-5.0 [facility] Comment on above: Performed By: #### E LEC #### [facility] ([id number]) [address], [address] [place] [address] Protein [Mass/Vol] 6.2 g/dL Normal 6.0-8.0 [facility] Comment on above: Performed By: #### E LEC #### [facility] ([id number]) [address], [address] [place] [address] Sodium [Moles/Vol] 138 mmol/L Normal 134-146 [facility] Comment on above: Performed By: #### E LEC #### [facility] ([id number]) [address], [address] [place] [address] Urea nitrogen [Mass/Vol] 44 mg/dL High 5-27 [facility] Comment on above: Performed By: #### E LEC #### [facility] ([id number]) [address], [address] [place] [address] Creatinine (U) [Mass/Vol]on 02-25-2024 URINE CREATININE,RDM 57.71 mg/dL Normal [facility] Comment on above: Performed By: #### E LEC #### [facility] ([id number]) [address], [address] [place] [address] MAGNESIUMon 02-25-2024 Magnesium [Mass/Vol] 1.9 mg/dL Normal 1.8-2.6 [facility] Comment on above: Performed By: #### E LEC #### [facility] ([id number]) [address], [address] [place] [address] Osmolality (U) [Osmolality]o n 02-25-2024 URINE OSMOLALITY 631 mOsm/kg H2 Normal 300-1300 [facility] Comment on above: Performed By: #### E LEC #### [facility] ([id number]) [address], [address] [place] [address] PHOSPHORUSon 02-25-2024 Phosphate [Mass/Vol] 5.9 mg/dL High 2.4-4.9 [facility] Comment on above: Result Comment: SPEC IMEN HEMOLYZED, RESULTS INCREASED SLIGHTLY HEMOLYZED Performed By: #### E LEC #### [facility] ([id number]) [address], [address] [place] [address] Provider Letteron 02-25-2024 Provider Letter (Inserted Image. Sahra ble to display) February 25, 2024 GERA PERDUE [address] [place] [address] : 1945 Dear Gera Perdue , We [...] Sincerely, [facility] option #3 Normal [facility] URINE SODIUM,RANDOMon 2023 Sodium (U) [Moles/Vol] 119 mmol/L Normal Pr [facility] Comment on above: Performed By: #### E LEC #### [facility] ([id number]) [address], [address] [place] [address] AFB CULTURE(CONCENTRATED)on 02-24-2024 Mycobacterium sp identified Org specific cx Nom (Unsp spec) SPECIMEN NOTES SPECIMEN 2 AFB SMEAR NO ACID FAST BACILLI (CONCENTRATED SMEAR) CULTURE RESULTS NO ACID FAST BACILLI ISOLATED IN 8 WEEKS Normal [facility] Comment on above: Performed By: #### E LEC #### [facility] ([id number]) [address], [address] [place] [address] Mycobacterium sp identified Org specific cx Nom (Unsp spec) SPECIMEN NOTES SPECIMEN 1 AFB SMEAR NO ACID FAST BACILLI (CONCENTRATED SMEAR) CULTURE RESULTS NO ACID FAST BACILLI ISOLATED IN 8 WEEKS Normal [facility] Comment on above: Performed By: #### E LEC #### [facility] ([id number]) [address], [address] [place] [address] AND DIFFon 2023 BODY FLUID COMMENT Interpreta tion-- ------ Normal [facility] Comment on above: Result Comment: Refe rence values for this fluid type are undefined, as fluid accumulation is considered abnormal. Performed By: #### E LEC #### [facility] ([id number]) [address], [address] [place] [address] FLUID CLARITY HAZY Normal [facility] Comment on above: Performed By: #### E LEC #### [facility] ([id number]) [address], [address] [place] [address] FLUID COLOR COLORLESS Normal [facility] Comment on above: Performed By: #### E LEC #### [facility] ([id number]) [address], [address] [place] [address] FLUID LYMPHOCYTE 6 % Normal [facility] Comment on above: Performed By: #### E LEC #### [facility] ([id number]) [address], [address] [place] [address] FLUID NEUTROPHILS 69 % Normal [facility] Comment on above: Performed By: #### E LEC #### [facility] ([id number]) [address], [address] [place] [address] 34 /uL Normal [facility] Comment on above: Performed By: #### E LEC #### [facility] ([id number]) [address], [address] [place] [address] FLUID SPECIMEN TYPE BRONCHOALVEOLAR LAVAGE Normal [facility] Comment on above: Result Comment: RIGH T LUNG, LOWER LOBE SPECIMEN 2 Performed By: #### E LEC #### [facility] ([id number]) [address] [address] [place] [address] MACROPHAGES 25 % Normal [facility] Comment on above: Performed By: #### E LEC #### [facility] ([id number]) [address], [address] [place] [address] 440 /uL Normal [facility] Comment on above: Performed By: #### E LEC #### [facility] ([id number]) [address] [address] [place] [address] CBC AND AUTO DIFFon 02-24-20 Erythrocyte distribution width (RBC) [Ratio] 18.3 % High 11.5-15.0 [facility] Comment on above: Performed By: #### E LEC #### [facility] ([id number]) [address], [address] [place] [address] Hematocrit (Bld) [Volume fraction] 34.7 % Low 35-47 [facility] Comment on above: Performed By: #### E LEC #### [facility] ([id number]) [address], [address] [place] [address] Hemoglobin (Bld) [Mass/Vol] 11.2 g/dL Low 11.7-15.5 [facility] Comment on above: Performed By: #### E LEC #### [facility] ([id number]) [address] [address] [place] [address] Lymphocytes (Bld) [#/Vol] 2.8 10*3/uL Normal 1.0-3.5 [facility] Comment on above: Performed By: #### E LEC #### [facility] ([id number]) [address], [address] [place] [address] Lymphocytes/100 WBC (Bld) 17.0 % Normal [facility] Comment on above: Performed By: #### E LEC #### [facility] ([id number]) [address], [address] [place] [address] MCH (RBC) [Entitic mass] 24.6 pg Low 27-34 [facility] Comment on above: Performed By: #### E LEC #### [facility] ([id number]) [address], [address] [place] [address] MCHC (RBC) [Mass/Vol] 32.1 g/dL Normal 32-36 [facility] Comment on above: Performed By: #### E LEC #### [facility] ([id number]) [address], [address] [place] [address] MCV (RBC) [Entitic vol] 77 fL Low 80-100 [facility] Comment on above: Performed By: #### E LEC #### [facility] ([id number]) [address], [address] [place] [address] Metamyelocytes/100 WBC (Bld) 1.0 % Normal [facility] Comment on above: Performed By: #### E LEC #### [facility] ([id number]) [address], [address] [place] [address] Monocytes (Bld) [#/Vol] 0.7 10*3/uL Normal 0-0.9 [facility] Comment on above: Performed By: #### E LEC #### [facility] ([id number]) [address], [address] [place] [address] Monocytes/100 WBC (Bld) 4.0 % Normal [facility] Comment on above: Performed By: #### E LEC #### [facility] ([id number]) [address], [address] [place] [address] Neutrophils (Bld) [#/Vol] 12.7 10*3/uL High 1.5-6.6 [facility] Comment on above: Performed By: #### E LEC #### [facility] ([id number]) [address], [address] [place] [address] Platelet mean volume (Bld) [Entitic vol] 6.7 fL Low 7-12 [facility] Comment on above: Performed By: #### E LEC #### [facility] ([id number]) [address], [address] [place] [address] Platelets (Bld) [#/Vol] 479 10*3/uL High 150-450 [facility] Comment on above: Performed By: #### E LEC #### [facility] ([id number]) [address], [address] [place] [address] RBC COUNT 4.54 X10E12/L Normal 3.80-5.20 [facility] Comment on above: Performed By: #### E LEC #### [facility] ([id number]) [address], [address] [place] [address] RBC morphology finding Nom (Bld) NORMAL Normal [facility] Comment on above: Performed By: #### E LEC #### [facility] ([id number]) [address], [address] [place] [address] SEG NEUTROPHIL 78.0 % Normal [facility] Comment on above: Performed By: #### E LEC #### [facility] ([id number]) [address], [address] [place] [address] WBC (Bld) [#/Vol] 16.4 10*3/uL High 4.0-11.0 [facility] Comment on above: Performed By: #### E LEC #### [facility] ([id number]) [address], [address] [place] [address] COMPREHENSIVE METABOLIC PANE Harsha 04-29-2024 Albumin [Mass/Vol] 2.8 g/dL Low 3.2-5.3 [facility] Comment on above: Performed By: #### E LEC #### [facility] ([id number]) [address], [address] [place] [address] ALP [Catalytic activity/Vol] 63 U/L Normal 39-130 [facility] Comment on above: Performed By: #### E LEC #### [facility] ([id number]) [address], [address] [place] [address] ALT [Catalytic activity/Vol] 11 U/L Normal 0-31 [facility] Comment on above: Performed By: #### E LEC #### [facility] ([id number]) [address], [address] [place] [address] Anion gap [Moles/Vol] 6 mmol/L Normal 5-15 [facility] Comment on above: Performed By: #### E LEC #### [facility] ([id number]) [address], [address] [place] [address] AST [Catalytic activity/Vol] 12 U/L Normal 0-41 [facility] Comment on above: Performed By: #### E LEC #### [facility] ([id number]) [address], [address] [place] [address] Bilirubin [Mass/Vol] 0.2 mg/dL Low 0.3-1.2 [facility] Comment on above: Performed By: #### E LEC #### [facility] ([id number]) [address], [address] [place] [address] Calcium [Mass/Vol] 9.1 mg/dL Normal 8.5-10.5 [facility] Comment on above: Performed By: #### E LEC #### [facility] ([id number]) [address], [address] [place] [address] Chloride [Moles/Vol] 101 mmol/L Normal 98-109 [facility] Comment on above: Performed By: #### E LEC #### [facility] ([id number]) [address], [address] [place] [address] CO2 [Moles/Vol] 31 mmol/L Normal 22-32 [facility] Comment on above: Performed By: #### E LEC #### [facility] ([id number]) [address], [address] [place] [address] Creatinine [Mass/Vol] 1.05 mg/dL High 0.40-1.00 [facility] Comment on above: Result Comment: METH OD TRACEABLE TO IDMS STANDARD Performed By: #### E LEC #### [facility] ([id number]) [address], [address] [place] [address] GFR/1.73 sq M.predicted among non-blacks MDRD (S/P/Bld) [Vol rate/Area] 54 mL/min/{1.73_m2} Low >59 [facility] Comment on above: Result Comment: Reported eGFR is based on the CKD-EPI 2020 equation that does not use a race coefficient. Performed By: #### E LEC #### [facility] ([id number]) [address], [address] [place] [address] Glucose [Mass/Vol] 91 mg/dL Normal 65-99 [facility] Comment on above: Performed By: #### E LEC #### [facility] ([id number]) [address] [address] [place] [address] Potassium [Moles/Vol] 4.5 mmol/L Normal 3.5-5.0 [facility] Comment on above: Performed By: #### E LEC #### [facility] ([id number]) [address], [address] [place] [address] Protein [Mass/Vol] 6.2 g/dL Normal 6.0-8.0 [facility] Comment on above: Performed By: #### E LEC #### [facility] ([id number]) [address] [place] [address], [facility] [address] [place] [address] Sodium [Moles/Vol] 138 mmol/L Normal 134-146 [facility] Comment on above: Performed By: #### E LEC #### [facility] ([id number]) [address] [place] [address] [address] [place] [address] Urea nitrogen [Mass/Vol] 33 mg/dL High 5-27 [facility] Comment on above: Performed By: #### E LEC #### [facility] ([id number]) [address] [place] [address] Cytologyon 02-24-2024 Cytology Normal [facility] Comment on above: Result Comment: [facility] [address] [place] [address] Cytology Consultation Patient Name:JEAN PERDUE:1945 (Age: 78)Gender:FTaken:4Reported:02/27/2024 16:56Physician(s):Elsa Quinonez MD ([phone])Copy To:Noe Huang [facility] Centeression #:[id number]. Rec. #:[id number]: #[id number] Final Cytologic Diagnosis 1. Right lower lobe, bronchial washing: No malignant cells identified. 2. Right lower lobe, bronchoalveolar lavage: No malignant cells identified. nxk/02/27/2024 [facility] [place] [address], License number: [id number].Electronically Signed Out By Agustin Darling MD Clinical [...] lower lobe, bronchial washing Cell block for Non-hand surgeon (M), Level 2 H&E, Non CHIEF JAILER ThinPrep 2: Right lower lobe, bronchoalveolar lavage Cell block for Non-hand surgeon (M), Level 2 H&E, Non CHIEF JAILER ThinPrep Fee Code(s): 1; 30143, 36635 2; 22003, 80266 FUNGAL CULTUREon 02-24-2024 Fungus identified Cx Nom (Unsp spec) SPECIMEN NOTES SPECIMEN 2 FUNGAL SMEAR NO FUNGAL ELEMENTS SEEN ON CONCENTRATED SMEAR CULTURE RESULTS NO FUNGUS ISOLATED AFTER [address] [facility] Comment on above: Performed By: #### E LEC #### [facility] ([id number]) [address] [facility], [address] [place] [address] Fungus identified Cx Nom (Unsp spec) SPECIMEN NOTES SPECIMEN 1 FUNGAL SMEAR NO FUNGAL ELEMENTS SEEN ON CONCENTRATED SMEAR CULTURE RESULTS NO FUNGUS ISOLATED AFTER [address] [facility] Comment on above: Performed By: #### E LEC #### [facility] ([id number]) [address] [facility], [address] [place] [address] LOWER RESPIRATORY CULTUREon 02-24-2024 Bacteria identified Respiratory culture Nom (Sput) SPECIMEN NOTES SPECIMEN 2 GRAM STAIN 1 to 9 WHITE BLOOD CELLS/LPF 1 to 9 SQUAMOUS EPITHELIAL CELLS/LPF 0 CILIATED EPITHELIAL CELLS/LPF NO ORGANISMS SEEN CULTURE RESULTS RARE NORMAL ORAL KIMBERLY Normal [facility] Comment on above: Performed By: #### E LEC #### [facility] ([id number]) [address] [facility], [address] [place] [address] Bacteria identified Respiratory culture Nom (Sput) SPECIMEN NOTES SPECIMEN 1 GRAM STAIN 1 to 9 WHITE BLOOD CELLS/LPF 1 to 9 SQUAMOUS EPITHELIAL CELLS/LPF 0 CILIATED EPITHELIAL CELLS/LPF NO ORGANISMS SEEN CULTURE RESULTS RARE NORMAL ORAL KIMBERLY Normal [facility] Comment on above: Performed By: #### E LEC #### [facility] ([id number]) [address] [place] [address], [address] [place] [address] M. pneumoniae DNA ELIZABETH+probe Ql (Unsp spec)on 02-24-2024 M PNEUMONIAE DNA PCR See Below Normal [facility] Comment on above: Result Comment: NOTE TEST [...] developed and its performance characteristics determined by [facility]. It has not been cleared or approved by the [place] Food and Drug Administration. This test was performed in a CLIA certified laboratory and is intended for clinical purposes. Performed By: [facility] [address] [place] [address] Strap Setter: Eduardo Lindsay MD, PhD [place] Number: [id number] SOURCE: Sputum Performed By: #### E LEC #### [facility] ([id number]) [address] [place] [address], [facility] [address] [place] [address] MAGNESIUMon 02-24-2024 Magnesium [Mass/Vol] 2.1 mg/dL Normal 1.8-2.6 [facility] Comment on above: Performed By: #### E LEC #### [facility] ([id number]) [address] [place] [address], [address] [place] [address] PHOSPHORUSon 02-24-2024 Phosphate [Mass/Vol] 4.6 mg/dL Normal 2.4-4.9 [facility] Comment on above: Performed By: #### E LEC #### [facility] ([id number]) [address] [place] [address] Procalcitonin [place] [Mass/Vol]o n 02-24-2024 PROCALCITONIN <0.05 Normal <0.05 [facility] Comment on above: Result Comment: NOTE <0.50 ng/mL - Low risk of severe sepsis and/or septic shock. <2.00 ng/mL - Recommend retesting within 6-24 hours. >2.00 ng/mL - High risk of sepsis and/or septic shock. Performed By: #### E LEC #### [facility] ([id number]) [address] [address] CBC AND AUTO DIFFon 02-23-20 24 Band form neutrophils/100 WBC (Bld) 1.0 % Normal [facility] Comment on above: Performed By: #### E LEC #### [facility] ([id number]) [address] [address] Erythrocyte distribution width (RBC) [Ratio] 18.2 % High 11.5-15.0 [facility] Comment on above: Performed By: #### E LEC #### [facility] ([id number]) [address] [address] [place] [address] Hematocrit (Bld) [Volume fraction] 35.2 % Normal 35-47 [facility] Comment on above: Performed By: #### E LEC #### [facility] ([id number]) [address] [address] [place] [address] Hemoglobin (Bld) [Mass/Vol] 11.3 g/dL Low 11.7-15.5 [facility] Comment on above: Performed By: #### E LEC #### [facility] ([id number]) [address], [address] [address] HYPOCHROMIA 2+ Abnormal NONE [facility] Comment on above: Performed By: #### E LEC #### [facility] ([id number]) [address], [address] [place] [address] Lymphocytes (Bld) [#/Vol] 2.6 10*3/uL Normal 1.0-3.5 [facility] Comment on above: Performed By: #### E LEC #### [facility] ([id number]) [address], [address] [place] [address] Lymphocytes/100 WBC (Bld) 16.0 % Normal [facility] Comment on above: Performed By: #### E LEC #### [facility] ([id number]) [address], [address] [place] [address] MCH (RBC) [Entitic mass] 24.8 pg Low 27-34 [facility] Comment on above: Performed By: #### E LEC #### [facility] ([id number]) [address], [address] [place] [address] MCHC (RBC) [Mass/Vol] 32.2 g/dL Normal 32-36 [facility] Comment on above: Performed By: #### E LEC #### [facility] ([id number]) [address], [address] [place] [address] MCV (RBC) [Entitic vol] 77 fL Low 80-100 [facility] Comment on above: Performed By: #### E LEC #### [facility] ([id number]) [address] [place] [address] Monocytes (Bld) [#/Vol] 1.0 10*3/uL High 0-0.9 [facility] Comment on above: Performed By: #### E LEC #### [facility] ([id number]) [address], [address] [place] [address] Monocytes/100 WBC (Bld) 6.0 % Normal [facility] Comment on above: Performed By: #### E LEC #### [facility] ([id number]) [address], [address] [place] [address] MYELOCYTE 3.0 % Normal [facility] Comment on above: Performed By: #### E LEC #### [facility] ([id number]) [address] [place] [address] Neutrophils (Bld) [#/Vol] 12.2 10*3/uL High 1.5-6.6 [facility] Comment on above: Performed By: #### E LEC #### [facility] ([id number]) [address], [address] [place] [address] Platelet mean volume (Bld) [Entitic vol] 6.7 fL Low 7-12 [facility] Comment on above: Performed By: #### E LEC #### [facility] ([id number]) [address], [address] [place] [address] Platelets (Bld) [#/Vol] 493 10*3/uL High 150-450 [facility] Comment on above: Performed By: #### E LEC #### [facility] ([id number]) [address], [address] [place] [address] RBC COUNT 4.57 X10E12/L Normal 3.80-5.20 [facility] Comment on above: Performed By: #### E LEC #### [facility] ([id number]) [address], [address] [place] [address] SEG NEUTROPHIL 74.0 % Normal [facility] Comment on above: Performed By: #### E LEC #### [facility] ([id number]) [address], [address] [place] [address] WBC (Bld) [#/Vol] 16.3 10*3/uL High 4.0-11.0 [facility] Comment on above: Performed By: #### E LEC #### [facility] ([id number]) [address], [address] [place] [address] CK [Catalytic activity/Vol]o n 02-23-2024 CPK <10 Low 24-170 [facility] Comment on above: Performed By: #### E LEC #### [facility] ([id number]) [address], [address] [place] [address] COMPREHENSIVE METABOLIC PANE Harsha 02-23-2024 Albumin [Mass/Vol] 2.9 g/dL Low 3.2-5.3 [facility] Comment on above: Performed By: #### E LEC #### [facility] ([id number]) [address], [address] [place] [address] ALP [Catalytic activity/Vol] 69 U/L Normal 39-130 [facility] Comment on above: Performed By: #### E LEC #### [facility] ([id number]) [address], [address] [place] [address] ALT [Catalytic activity/Vol] 7 U/L Normal 0-31 [facility] Comment on above: Performed By: #### E LEC #### [facility] ([id number]) [address], [address] [place] [address] Anion gap [Moles/Vol] 7 mmol/L Normal 5-15 [facility] Comment on above: Performed By: #### E LEC #### [facility] ([id number]) [address], [address] [place] [address] AST [Catalytic activity/Vol] 11 U/L Normal 0-41 [facility] Comment on above: Performed By: #### E LEC #### [facility] ([id number]) [address], [address] [place] [address] Bilirubin [Mass/Vol] 0.2 mg/dL Low 0.3-1.2 [facility] Comment on above: Performed By: #### E LEC #### [facility] ([id number]) [address], [address] [place] [address] Calcium [Mass/Vol] 9.4 mg/dL Normal 8.5-10.5 [facility] Comment on above: Performed By: #### E LEC #### [facility] ([id number]) [address] [place] [address] Chloride [Moles/Vol] 103 mmol/L Normal 98-109 [facility] Comment on above: Performed By: #### E LEC #### [facility] ([id number]) [address] [place] [address] CO2 [Moles/Vol] 31 mmol/L Normal 22-32 [facility] Comment on above: Performed By: #### E LEC #### [facility] ([id number]) [address] [place] [address] Creatinine [Mass/Vol] 0.97 mg/dL Normal 0.40-1.00 [facility] Comment on above: Result Comment: METH OD TRACEABLE TO IDMS STANDARD Performed By: #### E LEC #### [facility] ([id number]) [address] [place] [address] GFR/1.73 sq M.predicted among non-blacks MDRD (S/P/Bld) [Vol rate/Area] 60 mL/min/{1.73_m2} Normal >59 [facility] Comment on above: Result Comment: Reported eGFR is based on the CKD-EPI 2020 equation that does not use a race coefficient. Performed By: #### E LEC #### [facility] ([id number]) [address] [place] [address] Glucose [Mass/Vol] 86 mg/dL Normal 65-99 [facility] Comment on above: Performed By: #### E LEC #### [facility] ([id number]) [address], [address] [place] [address] Potassium [Moles/Vol] 4.6 mmol/L Normal 3.5-5.0 [facility] Comment on above: Performed By: #### E LEC #### [facility] ([id number]) [address], [address] [place] [address] Protein [Mass/Vol] 6.6 g/dL Normal 6.0-8.0 [facility] Comment on above: Performed By: #### E LEC #### [facility] ([id number]) [address], [address] [place] [address] Sodium [Moles/Vol] 141 mmol/L Normal 134-146 [facility] Comment on above: Performed By: #### E LEC #### [facility] ([id number]) [address], [address] [place] [address] Urea nitrogen [Mass/Vol] 31 mg/dL High 5-27 [facility] Comment on above: Performed By: #### E LEC #### [facility] ([id number]) [address], [address] [place] [address] FL SWALLOW MOTILITY FUNCTION on 02-23-2024 FL [...] León Parikh on 02/23/2024 8:44 AM Normal [facility] MAGNESIUMon 02-23-2024 Magnesium [Mass/Vol] 1.7 mg/dL Low 1.8-2.6 [facility] Comment on above: Performed By: #### E LEC #### [facility] ([id number]) [address], [address] [place] [address] PHOSPHORUSon 02-23-2024 Phosphate [Mass/Vol] 3.8 mg/dL Normal 2.4-4.9 [facility] Comment on above: Performed By: #### E LEC #### [facility] ([id number]) [address] [place] [address] CBC AND AUTO DIFFon 02-22-20 Erythrocyte distribution width (RBC) [Ratio] 18.6 % High 11.5-15.0 [facility] Comment on above: Performed By: #### E LEC #### [facility] ([id number]) [address], [address] [place] [address] Hematocrit (Bld) [Volume fraction] 34.2 % Low 35-47 [facility] Comment on above: Performed By: #### E LEC #### [facility] ([id number]) [address], [address] [place] [address] Hemoglobin (Bld) [Mass/Vol] 11.0 g/dL Low 11.7-15.5 [facility] Comment on above: Performed By: #### E LEC #### [facility] ([id number]) [address], [address] [place] [address] HYPOCHROMIA 2+ Abnormal NONE [facility] Comment on above: Performed By: #### E LEC #### [facility] ([id number]) [address], [address] [place] [address] Lymphocytes (Bld) [#/Vol] 2.6 10*3/uL Normal 1.0-3.5 [facility] Comment on above: Performed By: #### E LEC #### [facility] ([id number]) [address], [address] [place] [address] Lymphocytes/100 WBC (Bld) 17.0 % Normal [facility] Comment on above: Performed By: #### E LEC #### [facility] ([id number]) [address], [address] [place] [address] MCH (RBC) [Entitic mass] 24.5 pg Low 27-34 [facility] Comment on above: Performed By: #### E LEC #### [facility] ([id number]) [address], [address] [place] [address] MCHC (RBC) [Mass/Vol] 32.0 g/dL Normal 32-36 [facility] Comment on above: Performed By: #### E LEC #### [facility] ([id number]) [address], [address] [place] [address] MCV (RBC) [Entitic vol] 76 fL Low 80-100 [facility] Comment on above: Performed By: #### E LEC #### [facility] ([id number]) [address], [address] [place] [address] Monocytes (Bld) [#/Vol] 0.6 10*3/uL Normal 0-0.9 [facility] Comment on above: Performed By: #### E LEC #### [facility] ([id number]) [address], [address] [place] [address] Monocytes/100 WBC (Bld) 4.0 % Normal [facility] Comment on above: Performed By: #### E LEC #### [facility] ([id number]) [address], [address] [place] [address] Neutrophils (Bld) [#/Vol] 12.0 10*3/uL High 1.5-6.6 [facility] Comment on above: Performed By: #### E LEC #### [facility] ([id number]) [address], [address] [place] [address] Platelet mean volume (Bld) [Entitic vol] 6.6 fL Low 7-12 [facility] Comment on above: Performed By: #### E LEC #### [facility] ([id number]) [address], [address] [place] [address] Platelets (Bld) [#/Vol] 444 10*3/uL Normal 150-450 [facility] Comment on above: Performed By: #### E LEC #### [facility] ([id number]) [address], [address] [place] [address] RBC COUNT 4.47 X10E12/L Normal 3.80-5.20 [facility] Comment on above: Performed By: #### E LEC #### [facility] ([id number]) [address], [address] [place] [address] SEG NEUTROPHIL 79.0 % Normal [facility] Comment on above: Performed By: #### E LEC #### [facility] ([id number]) [address], [address] [place] [address] WBC (Bld) [#/Vol] 15.2 10*3/uL High 4.0-11.0 [facility] Comment on above: Performed By: #### E LEC #### [facility] ([id number]) [address], [address] [place] [address] COMPREHENSIVE METABOLIC PANE Harsha 02-22-2024 Albumin [Mass/Vol] 2.9 g/dL Low 3.2-5.3 [facility] Comment on above: Performed By: #### E LEC #### [facility] ([id number]) [address], [address] [place] [address] ALP [Catalytic activity/Vol] 80 U/L Normal 39-130 [facility] Comment on above: Performed By: #### E LEC #### [facility] ([id number]) [address], [address] [place] [address] ALT [Catalytic activity/Vol] 9 U/L Normal 0-31 [facility] Comment on above: Performed By: #### E LEC #### [facility] ([id number]) [address], [address] [place] [address] Anion gap [Moles/Vol] 8 mmol/L Normal 5-15 [facility] Comment on above: Performed By: #### E LEC #### [facility] ([id number]) [address], [address] [place] [address] AST [Catalytic activity/Vol] 12 U/L Normal 0-41 [facility] Comment on above: Performed By: #### E LEC #### [facility] ([id number]) [address], [address] [place] [address] Bilirubin [Mass/Vol] 0.2 mg/dL Low 0.3-1.2 [facility] Comment on above: Performed By: #### E LEC #### [facility] ([id number]) [address], [address] [place] [address] Calcium [Mass/Vol] 9.2 mg/dL Normal 8.5-10.5 [facility] Comment on above: Performed By: #### E LEC #### [facility] ([id number]) [address], [address] [place] [address] Chloride [Moles/Vol] 103 mmol/L Normal 98-109 [facility] Comment on above: Performed By: #### E LEC #### [facility] ([id number]) [address], [address] [place] [address] CO2 [Moles/Vol] 32 mmol/L Normal 22-32 [facility] Comment on above: Performed By: #### E LEC #### [facility] ([id number]) [address] [place] [address] Creatinine [Mass/Vol] 0.94 mg/dL Normal 0.40-1.00 [facility] Comment on above: Result Comment: METH OD TRACEABLE TO IDMS STANDARD Performed By: #### E LEC #### [facility] ([id number]) [address] [place] [address] GFR/1.73 sq M.predicted among non-blacks MDRD (S/P/Bld) [Vol rate/Area] 62 mL/min/{1.73_m2} Normal >59 [facility] Comment on above: Result Comment: Reported eGFR is based on the CKD-EPI 2020 equation that does not use a race coefficient. Performed By: #### E LEC #### [facility] ([id number]) [address], [address] [place] [address] Glucose [Mass/Vol] 128 mg/dL High 65-99 [facility] Comment on above: Performed By: #### E LEC #### [facility] ([id number]) [address], [address] [place] [address] Potassium [Moles/Vol] 4.2 mmol/L Normal 3.5-5.0 [facility] Comment on above: Performed By: #### E LEC #### [facility] ([id number]) [address], [address] [place] [address] Protein [Mass/Vol] 6.9 g/dL Normal 6.0-8.0 [facility] Comment on above: Performed By: #### E LEC #### [facility] ([id number]) [address], [address] [place] [address] Sodium [Moles/Vol] 143 mmol/L Normal 134-146 [facility] Comment on above: Performed By: #### E LEC #### [facility] ([id number]) [address] [place] [address] Urea nitrogen [Mass/Vol] 29 mg/dL High 5-27 [facility] Comment on above: Performed By: #### E LEC #### [facility] ([id number]) [address] [place] [address] MAGNESIUMon 02-22-2024 Magnesium [Mass/Vol] 2.0 mg/dL Normal 1.8-2.6 [facility] Comment on above: Performed By: #### E LEC #### [facility] ([id number]) [address], [address] [place] [address] PHOSPHORUSon 02-22-2024 Phosphate [Mass/Vol] 3.3 mg/dL Normal 2.4-4.9 [facility] Comment on above: Performed By: #### E LEC #### [facility] ([id number]) [address] [place] [address] C DIFFICILE BY PCRon 024 C. difficile toxin genes ELIZABETH+probe Ql (Stl) TOXIGENIC C DIFF Negative (qualifier value) 027 NAP1 Negative (qualifier value) Normal PRNEG [facility] Comment on above: Performed By: #### E LEC #### [facility] ([id number]) [address] [place] [address] CBC AND AUTO DIFFon 02-21-20 24 ABSOLUTE BASOPHIL 0.0 X10E9/L Normal 0.0-0.2 [facility] Comment on above: Performed By: #### E LEC #### [facility] ([id number]) [address] [place] [address] ABSOLUTE NEUTROPHIL 10.9 X10E9/L High 1.5-6.6 [facility] Comment on above: Performed By: #### E LEC #### [facility] ([id number]) [address] [place] [address] Basophils/100 WBC (Bld) 0.2 % Normal [facility] Comment on above: Performed By: #### E LEC #### [facility] ([id number]) [address] [place] [address] Eosinophils (Bld) [#/Vol] 0.0 10*3/uL Normal 0.0-0.4 [facility] Comment on above: Performed By: #### E LEC #### [facility] ([id number]) [address] [place] [address] Eosinophils/100 WBC (Bld) 0.0 % Normal [facility] Comment on above: Performed By: #### E LEC #### [facility] ([id number]) [address] [place] [address] Erythrocyte distribution width (RBC) [Ratio] 18.0 % High 11.5-15.0 [facility] Comment on above: Performed By: #### E LEC #### [facility] ([id number]) [address] [place] [address] Hematocrit (Bld) [Volume fraction] 32.3 % Low 35-47 [facility] Comment on above: Performed By: #### E LEC #### [facility] ([id number]) [address] [place] [address] Hemoglobin (Bld) [Mass/Vol] 10.5 g/dL Low 11.7-15.5 [facility] Comment on above: Performed By: #### E LEC #### [facility] ([id number]) [address] [place] [address] Lymphocytes (Bld) [#/Vol] 2.1 10*3/uL Normal 1.0-3.5 [facility] Comment on above: Performed By: #### E LEC #### [facility] ([id number]) [address] [place] [address] Lymphocytes/100 WBC (Bld) 14.7 % Normal [facility] Comment on above: Performed By: #### E LEC #### [facility] ([id number]) [address] [place] [address] MCH (RBC) [Entitic mass] 24.6 pg Low 27-34 [facility] Comment on above: Performed By: #### E LEC #### [facility] ([id number]) [address] [place] [address] MCHC (RBC) [Mass/Vol] 32.5 g/dL Normal 32-36 [facility] Comment on above: Performed By: #### E LEC #### [facility] ([id number]) [address] [place] [address] MCV (RBC) [Entitic vol] 76 fL Low 80-100 [facility] Comment on above: Performed By: #### E LEC #### [facility] ([id number]) [address] [place] [address] Monocytes (Bld) [#/Vol] 1.3 10*3/uL High 0-0.9 [facility] Comment on above: Performed By: #### E LEC #### [facility] ([id number]) [address] [place] [address] Monocytes/100 WBC (Bld) 9.2 % Normal [facility] Comment on above: Performed By: #### E LEC #### [facility] ([id number]) [address] [place] [address] Neutrophils/100 WBC (Bld) 75.9 % Normal [facility] Comment on above: Performed By: #### E LEC #### [facility] ([id number]) [address] [place] [address] Platelet mean volume (Bld) [Entitic vol] 6.7 fL Low 7-12 [facility] Comment on above: Performed By: #### E LEC #### [facility] ([id number]) [address] [place] [address] Platelets (Bld) [#/Vol] 448 10*3/uL Normal 150-450 [facility] Comment on above: Performed By: #### E LEC #### [facility] ([id number]) [address] [place] [address] RBC COUNT 4.27 X10E12/L Normal 3.80-5.20 [facility] Comment on above: Performed By: #### E LEC #### [facility] ([id number]) [address] [place] [address] WBC (Bld) [#/Vol] 14.4 10*3/uL High 4.0-11.0 [facility] Comment on above: Performed By: #### E LEC #### [facility] ([id number]) [address] [place] [address] COMPREHENSIVE METABOLIC PANE Harsha 02-21-2024 Albumin [Mass/Vol] 2.9 g/dL Low 3.2-5.3 [facility] Comment on above: Performed By: #### E LEC #### [facility] ([id number]) [address] [place] [address] ALP [Catalytic activity/Vol] 81 U/L Normal 39-130 [facility] Comment on above: Performed By: #### E LEC #### [facility] ([id number]) [address] [place] [address] ALT [Catalytic activity/Vol] 4 U/L Normal 0-31 [facility] Comment on above: Performed By: #### E LEC #### [facility] ([id number]) [address] [place] [address] Anion gap [Moles/Vol] 7 mmol/L Normal 5-15 [facility] Comment on above: Performed By: #### E LEC #### [facility] ([id number]) [address] [place] [address] AST [Catalytic activity/Vol] 9 U/L Normal 0-41 [facility] Comment on above: Performed By: #### E LEC #### [facility] ([id number]) [address] [place] [address] Bilirubin [Mass/Vol] 0.2 mg/dL Low 0.3-1.2 [facility] Comment on above: Performed By: #### E LEC #### [facility] ([id number]) [address] [place] [address] Calcium [Mass/Vol] 8.9 mg/dL Normal 8.5-10.5 [facility] Comment on above: Performed By: #### E LEC #### [facility] ([id number]) [address] [place] [address] Chloride [Moles/Vol] 102 mmol/L Normal 98-109 [facility] Comment on above: Performed By: #### E LEC #### [facility] ([id number]) [address] [place] [address] CO2 [Moles/Vol] 34 mmol/L High 22-32 [facility] Comment on above: Performed By: #### E LEC #### [facility] ([id number]) [address] [place] [address] Creatinine [Mass/Vol] 1.09 mg/dL High 0.40-1.00 [facility] Comment on above: Result Comment: METH OD TRACEABLE TO IDMS STANDARD Performed By: #### E LEC #### [facility] ([id number]) [address], [address] [place] [address] GFR/1.73 sq M.predicted among non-blacks MDRD (S/P/Bld) [Vol rate/Area] 52 mL/min/{1.73_m2} Low >59 [facility] Comment on above: Result Comment: Reported eGFR is based on the CKD-EPI 2020 equation that does not use a race coefficient. Performed By: #### E LEC #### [facility] ([id number]) [address], [address] [place] [address] Glucose [Mass/Vol] 150 mg/dL High 65-99 [facility] Comment on above: Performed By: #### E LEC #### [facility] ([id number]) [address], [address] [place] [address] Potassium [Moles/Vol] 4.0 mmol/L Normal 3.5-5.0 [facility] Comment on above: Performed By: #### E LEC #### [facility] ([id number]) [address], [address] [place] [address] Protein [Mass/Vol] 6.8 g/dL Normal 6.0-8.0 [facility] Comment on above: Performed By: #### E LEC #### [facility] ([id number]) [address], [address] [place] [address] Sodium [Moles/Vol] 143 mmol/L Normal 134-146 [facility] Comment on above: Performed By: #### E LEC #### [facility] ([id number]) [address] [place] [address] Urea nitrogen [Mass/Vol] 25 mg/dL Normal 5-27 [facility] Comment on above: Performed By: #### E LEC #### [facility] ([id number]) [address] [address], [address] [address] GI PANELon 02-21-2024 Gastrointestinal pathogens DNA and [...] SAPOVIRUS Not detected (qualifier value) Normal NDET [facility] Comment on above: Performed By: #### E LEC #### [facility] ([id number]) [address], [address] [place] [address] MAGNESIUMon 02-21-2024 Magnesium [Mass/Vol] 2.4 mg/dL Normal 1.8-2.6 [facility] Comment on above: Performed By: #### E LEC #### [facility] ([id number]) [address], [address] [place] [address] PHOSPHORUSon 02-21-2024 Phosphate [Mass/Vol] 3.7 mg/dL Normal 2.4-4.9 [facility] Comment on above: Performed By: #### E LEC #### [facility] ([id number]) [address], [address] [place] [address] CBC AND AUTO DIFFon 02-20-20 ABSOLUTE BASOPHIL 0.0 X10E9/L Normal 0.0-0.2 [facility] [facility] Comment on above: Performed By: #### E LEC #### [facility] ([id number]) [address], [address] [place] [address] ABSOLUTE NEUTROPHIL 10.4 X10E9/L High 1.5-6.6 [facility] Comment on above: Performed By: #### E LEC #### [facility] ([id number]) [address], [address] [place] [address] Basophils/100 WBC (Bld) 0.1 % Normal [facility] Comment on above: Performed By: #### E LEC #### [facility] ([id number]) [address], [address] [place] [address] Eosinophils (Bld) [#/Vol] 0.0 10*3/uL Normal 0.0-0.4 [facility] Comment on above: Performed By: #### E LEC #### [facility] ([id number]) [address], [address] [place] [address] Eosinophils/100 WBC (Bld) 0.0 % Normal [facility] Comment on above: Performed By: #### E LEC #### [facility] ([id number]) [address], [address] [place] [address] Erythrocyte distribution width (RBC) [Ratio] 18.1 % High 11.5-15.0 [facility] Comment on above: Performed By: #### E LEC #### [facility] ([id number]) [address], [address] [place] [address] Hematocrit (Bld) [Volume fraction] 33.6 % Low 35-47 [facility] Comment on above: Performed By: #### E LEC #### [facility] ([id number]) [address], [address] [place] [address] Hemoglobin (Bld) [Mass/Vol] 11.2 g/dL Low 11.7-15.5 [facility] Comment on above: Performed By: #### E LEC #### [facility] ([id number]) [address], [address] [place] [address] Lymphocytes (Bld) [#/Vol] 1.3 10*3/uL Normal 1.0-3.5 [facility] Comment on above: Performed By: #### E LEC #### [facility] ([id number]) [address], [address] [place] [address] Lymphocytes/100 WBC (Bld) 10.6 % Normal [facility] Comment on above: Performed By: #### E LEC #### [facility] ([id number]) [address], [address] [place] [address] MCH (RBC) [Entitic mass] 25.1 pg Low 27-34 [facility] Comment on above: Performed By: #### E LEC #### [facility] ([id number]) [address], [address] [place] [address] MCHC (RBC) [Mass/Vol] 33.3 g/dL Normal 32-36 [facility] Comment on above: Performed By: #### E LEC #### [facility] ([id number]) [address], [address] [place] [address] MCV (RBC) [Entitic vol] 76 fL Low 80-100 [facility] Comment on above: Performed By: #### E LEC #### [facility] ([id number]) [address], [address] [place] [address] Monocytes (Bld) [#/Vol] 0.5 10*3/uL Normal 0-0.9 [facility] Comment on above: Performed By: #### E LEC #### [facility] ([id number]) [address], [address] [place] [address] Monocytes/100 WBC (Bld) 3.7 % Normal [facility] Comment on above: Performed By: #### E LEC #### [facility] ([id number]) [address], [address] [place] [address] Neutrophils/100 WBC (Bld) 85.6 % Normal [facility] Comment on above: Performed By: #### E LEC #### [facility] ([id number]) [address], [address] [place] [address] Platelet mean volume (Bld) [Entitic vol] 6.9 fL Low 7-12 [facility] Comment on above: Performed By: #### E LEC #### [facility] ([id number]) [address], [address] [place] [address] Platelets (Bld) [#/Vol] 425 10*3/uL Normal 150-450 [facility] Comment on above: Performed By: #### E LEC #### [facility] ([id number]) [address], [address] [place] [address] RBC COUNT 4.45 X10E12/L Normal 3.80-5.20 [facility] Comment on above: Performed By: #### E LEC #### [facility] ([id number]) [address], [address] [place] [address] WBC (Bld) [#/Vol] 12.1 10*3/uL High 4.0-11.0 [facility] Comment on above: Performed By: #### E LEC #### [facility] ([id number]) [address], [address] [place] [address] COMPREHENSIVE METABOLIC PANE Harsha 02-20-2024 Albumin [Mass/Vol] 3.0 g/dL Low 3.2-5.3 [facility] Comment on above: Performed By: #### E LEC #### [facility] ([id number]) [address], [address] [place] [address] ALP [Catalytic activity/Vol] 81 U/L Normal 39-130 [facility] Comment on above: Performed By: #### E LEC #### [facility] ([id number]) [address], [address] [place] [address] ALT [Catalytic activity/Vol] U/L Normal 0-31 [facility] Comment on above: Performed By: #### E LEC #### [facility] ([id number]) [address], [address] [place] [address] Anion gap [Moles/Vol] 10 mmol/L Normal 5-15 [facility] Comment on above: Performed By: #### E LEC #### [facility] ([id number]) [address], [address] [place] [address] AST [Catalytic activity/Vol] 9 U/L Normal 0-41 [facility] Comment on above: Performed By: #### E LEC #### [facility] ([id number]) [address], [address] [place] [address] Bilirubin [Mass/Vol] 0.2 mg/dL Low 0.3-1.2 [facility] Comment on above: Performed By: #### E LEC #### [facility] ([id number]) [address], [address] [place] [address] Calcium [Mass/Vol] 9.1 mg/dL Normal 8.5-10.5 [facility] Comment on above: Performed By: #### E LEC #### [facility] ([id number]) [address], [address] [place] [address] Chloride [Moles/Vol] 97 mmol/L Low 98-109 [facility] Comment on above: Performed By: #### E LEC #### [facility] ([id number]) [address], [address] [place] [address] CO2 [Moles/Vol] 33 mmol/L High 22-32 [facility] Comment on above: Performed By: #### E LEC #### [facility] ([id number]) [address], [address] [place] [address] Creatinine [Mass/Vol] 1.16 mg/dL High 0.40-1.00 [facility] Comment on above: Result Comment: METH OD TRACEABLE TO IDMS STANDARD Performed By: #### E LEC #### [facility] ([id number]) [address], [address] [place] [address] GFR/1.73 sq M.predicted among non-blacks MDRD (S/P/Bld) [Vol rate/Area] 48 mL/min/{1.73_m2} Low >59 [facility] Comment on above: Result Comment: Reported eGFR is based on the CKD-EPI 2020 equation that does not use a race coefficient. Performed By: #### E LEC #### [facility] ([id number]) [address], [address] [place] [address] Glucose [Mass/Vol] 171 mg/dL High 65-99 [facility] Comment on above: Performed By: #### E LEC #### [facility] ([id number]) [address], [address] [place] [address] Potassium [Moles/Vol] 3.6 mmol/L Normal 3.5-5.0 [facility] Comment on above: Performed By: #### E LEC #### [facility] ([id number]) [address], [address] [place] [address] Protein [Mass/Vol] 7.1 g/dL Normal 6.0-8.0 [facility] Comment on above: Performed By: #### E LEC #### [facility] ([id number]) [address], [address] [place] [address] Sodium [Moles/Vol] 140 mmol/L Normal 134-146 [facility] Comment on above: Performed By: #### E LEC #### [facility] ([id number]) [address], [address] [place] [address] Urea nitrogen [Mass/Vol] 16 mg/dL Normal 5-27 [facility] Comment on above: Performed By: #### E LEC #### [facility] ([id number]) [address], [address] [place] [address] MAGNESIUMon 02-20-2024 Magnesium [Mass/Vol] 2.8 mg/dL High 1.8-2.6 [facility] Comment on above: Performed By: #### E LEC #### [facility] ([id number]) [address], [address] [place] [address] Magnesium [Mass/Vol] 1.5 mg/dL Low 1.8-2.6 [facility] Comment on above: Performed By: #### E LEC #### [facility] ([id number]) [address], [address] [place] [address] PHOSPHORUSon 02-20-2024 Phosphate [Mass/Vol] 3.6 mg/dL Normal 2.4-4.9 [facility] Comment on above: Performed By: #### E LEC #### [facility] ([id number]) [address], [address] [place] [address] POTASSIUMon 02-20-2024 Potassium [Moles/Vol] 4.1 mmol/L Normal 3.5-5.0 [facility] Comment on above: Performed By: #### E LEC #### [facility] ([id number]) [address], [address] [place] [address] BASIC METABOLIC PANLon 02-18 Anion gap [Moles/Vol] 10 mmol/L Normal 5-15 [facility] Comment on above: Performed By: #### Timmy MILLIGAN BMP, , 2776-10 #### [facility] ([id number]) [address], [address] [place] [address] Calcium [Mass/Vol] 9.5 mg/dL Normal 8.5-10.5 [facility] Comment on above: Performed By: #### Timmy MILLIGAN BMP, , 2776-10 #### [facility] ([id number]) [address], [address] [place] [address] Chloride [Moles/Vol] 96 mmol/L Low 98-109 [facility] Comment on above: Performed By: #### Timmy MILLIGAN BMP, , 2776-10 #### [facility] ([id number]) [address], [address] [place] [address] CO2 [Moles/Vol] 32 mmol/L Normal 22-32 [facility] Comment on above: Performed By: #### Timmy MILLIGAN, BMP, , 2776-10 #### [facility] ([id number]) [address], [address] [place] [address] Creatinine [Mass/Vol] 1.10 mg/dL High 0.40-1.00 [facility] Comment on above: Result Comment: METH OD TRACEABLE TO IDMS STANDARD Performed By: #### SANTOSH SALEEM, , 2776-10 #### [facility] ([id number]) [address], [address] [place] [address] GFR/1.73 sq M.predicted among non-blacks MDRD (S/P/Bld) [Vol rate/Area] 51 mL/min/{1.73_m2} Low >59 [facility] Comment on above: Result Comment: Reported eGFR is based on the CKD-EPI 2020 equation that does not use a race coefficient. Performed By: #### SANTOSH SALEEM, , 2776-10 #### [facility] ([id number]) [address], [address] [place] [address] Glucose [Mass/Vol] 131 mg/dL High 65-99 [facility] Comment on above: Performed By: #### SANTOSH SALEEM, , 2776-10 #### [facility] ([id number]) [address], [address] [place] [address] Potassium [Moles/Vol] 3.9 mmol/L Normal 3.5-5.0 [facility] Comment on above: Performed By: #### SANTOSH SALEEM, , 2776-10 #### [facility] ([id number]) [address], [address] [place] [address] Sodium [Moles/Vol] 138 mmol/L Normal 134-146 [facility] Comment on above: Performed By: #### Timmy MILLIGAN, SANTOSH, , 2776-10 #### [facility] ([id number]) [address], [address] [place] [address] Urea nitrogen [Mass/Vol] 11 mg/dL Normal 5-27 [facility] Comment on above: Performed By: #### SANTOSH SALEEM, , 2776-10 #### [facility] ([id number]) [address], [address] [place] [address] BLOOD CULTUREon 02-19-2024 Bacteria identified Aer cx Nom (Bld) SPECIMEN NOTES ONLY ANAEROBIC BOTTLE SENT CULTURE RESULTS NO GROWTH 5 DAYS Normal [facility] Comment on above: Performed By: #### E LEC #### [facility] ([id number]) [address], [address] [place] [address] Bacteria identified Aer cx Nom (Bld) CULTURE RESULTS NO GROWTH 5 DAYS Normal [facility] CBC AND AUTO DIFFon 02-19-20 ABSOLUTE BASOPHIL 0.0 X10E9/L Normal 0.0-0.2 [facility] Comment on above: Performed By: #### SANTOSH SALEEM, , 2776-10 #### [facility] ([id number]) [address], [address] [place] [address] ABSOLUTE NEUTROPHIL 10.1 X10E9/L High 1.5-6.6 [facility] Comment on above: Performed By: #### SANTOSH SALEEM, , 2776-10 #### [facility] ([id number]) [address], [address] [place] [address] Basophils/100 WBC (Bld) 0.3 % Normal [facility] Comment on above: Performed By: #### SANTOSH SALEEM, , 2776-10 #### [facility] ([id number]) [address] [place] [address] Eosinophils (Bld) [#/Vol] 0.2 10*3/uL Normal 0.0-0.4 [facility] Comment on above: Performed By: #### SANTOSH SALEEM, , 2776-10 #### [facility] ([id number]) [address], [address] [place] [address] Eosinophils/100 WBC (Bld) 1.3 % Normal [facility] Comment on above: Performed By: #### Timmy MILLIGAN, [facility], , 2776-10 #### [facility] ([id number]) [address], [address] [place] [address] Erythrocyte distribution width (RBC) [Ratio] 18.1 % High 11.5-15.0 [facility] Comment on above: Performed By: #### Timmy MILLIGAN, [facility], , 2776-10 #### [facility] ([id number]) [address] [place] [address] Hematocrit (Bld) [Volume fraction] 37.8 % Normal 35-47 [facility] Comment on above: Performed By: #### Timmy MILLIGAN, [facility], , 2776-10 #### [facility] ([id number]) [address] [place] [address] Hemoglobin (Bld) [Mass/Vol] 12.1 g/dL Normal 11.7-15.5 [facility] Comment on above: Performed By: #### SANTOSH SALEEM, , 2776-10 #### [facility] ([id number]) [address] [place] [address] Lymphocytes (Bld) [#/Vol] 2.5 10*3/uL Normal 1.0-3.5 [facility] Comment on above: Performed By: #### Timmy MILLIGAN, [facility], , 2776-10 #### [facility] ([id number]) [address], [address] [place] [address] Lymphocytes/100 WBC (Bld) 17.9 % Normal [facility] Comment on above: Performed By: #### Timmy MILLIGAN, SANTOSH, , 2776-10 #### [facility] ([id number]) [address], [address] [place] [address] MCH (RBC) [Entitic mass] 24.4 pg Low 27-34 [facility] Comment on above: Performed By: #### Timmy MILLIGAN [facility], , 2776-10 #### [facility] ([id number]) [address], [address] [place] [address] MCHC (RBC) [Mass/Vol] 32.0 g/dL Normal 32-36 [facility] Comment on above: Performed By: #### Timmy MILLIGAN [facility], , 2776-10 #### [facility] ([id number]) [address], [address] [place] [address] MCV (RBC) [Entitic vol] 76 fL Low 80-100 [facility] Comment on above: Performed By: #### Timmy MILLIGAN [facility], , 2776-10 #### [facility] ([id number]) [address], [address] [place] [address] Monocytes (Bld) [#/Vol] 1.4 10*3/uL High 0-0.9 [facility] Comment on above: Performed By: #### Timmy MILLIGAN [facility], , 2776-10 #### [facility] ([id number]) [address], [address] [place] [address] Monocytes/100 WBC (Bld) 9.9 % Normal [facility] Comment on above: Performed By: #### Timmy MILLIGAN [facility], , 2776-10 #### [facility] ([id number]) [address], [address] [place] [address] Neutrophils/100 WBC (Bld) 70.6 % Normal [facility] Comment on above: Performed By: #### SANTOSH SALEEM, , 2776-10 #### [facility] ([id number]) [address], [address] [place] [address] Platelet mean volume (Bld) [Entitic vol] 6.9 fL Low 7-12 [facility] Comment on above: Performed By: #### C SRINI [facility], , 2776-1 #### [facility] ([id number]) [address], [address] [place] [address] Platelets (Bld) [#/Vol] 485 10*3/uL High 150-450 [facility] Comment on above: Performed By: #### C SANTOSH MILLIGAN, , 2776- #### [facility] ([id number]) [address], [address] [place] [address] RBC COUNT 4.95 X10E12/L Normal 3.80-5.20 [facility] Comment on above: Performed By: #### SANTOSH SALEEM, , 2776- #### [facility] ([id number]) [address], [address] [place] [address] WBC (Bld) [#/Vol] 14.2 10*3/uL High 4.0-11.0 [facility] Comment on above: Performed By: #### SANTOSH SALEEM, , 1 #### [facility] ([id number]) [address] [place] [address] CT ABDOMEN AND PELVIS W CONT on [...] Lehman MD on 02/19/2024 4:54 PM Normal [facility] LEGIONELLA URINE AGon 2023 L. pneumophila Ag IA Ql (U) LEGIONELLA URINE AG Negative (qualifier value) NEGATIVE FOR L.PNEUMOPHILA SEROGROUP 1 ANTIGEN Normal [facility] Comment on above: Performed By: #### E LEC #### [facility] ([id number]) [address] [place] [address] Lactate (P timmy) [Moles/Vol]o n 02-19-2024 LACTATE W/REFLEX 1.7 mmol/L Normal 0.4-2.0 [facility] Comment on above: Result Comment: Result did not trigger repeat Lactate, re-order if needed. Performed By: #### C SRINI, SANTOSH, , 2776-10 #### [facility] ([id number]) [address] [place] [address] MRSA PCR NASALon 02-19-2024 MRSA DNA ELIZABETH+probe Ql (Unsp spec) Negative Normal NEG [facility] Comment on above: Performed By: #### E LEC #### [facility] ([id number]) [address] [place] [address] Natriuretic peptide B [Mass/ Vol]on 02-19-2024 Natriuretic peptide B (Bld) [Mass/Vol] 38 pg/mL Normal <100.0 [facility] Comment on above: Performed By: #### C SRINI [facility], , 2776-10 #### [facility] ([id number]) [address] [address] Nuclear Ab IA Ql (S)on 02-18 BRANDON Screen w/reflex Negative Normal NEG [facility] Comment on above: Result Comment: Testing performed using multiplex flow immunoassay. Eleven different antigens associated with systemic autoimmune diseases (dsDNA,Sm,Sm/[employer],Chromatin, SSA,SSB,Dacia-1,Scl70,Ribo P,Centromere B) are included in this screening test. Performed By: #### E LEC #### [facility] ([id number]) [address] [place] [address] PROTIME AND INRon 02-19-2024 INR Coag (PPP) [Relative time] 1.1 {INR} Normal 0.8-1.1 [facility] Comment on above: Performed By: #### C SRINI [facility], , 2776-10 #### [facility] ([id number]) [address] [place] [address] PT Coag (PPP) [Time] 13.1 s Normal 9.8-13.2 [facility] Comment on above: Performed By: #### C BC, BMP, [address]-6, 2777-1 #### [facility] ([id number]) [address], [address] [place] [address] Procalcitonin IA [Mass/Vol]o n 02-19-2024 PROCALCITONIN 0.10 ng/mL High <0.05 [facility] Comment on above: Result Comment: NOTE <0.50 ng/mL - Low risk of severe sepsis and/or septic shock. <2.00 ng/mL - Recommend retesting within 6-24 hours. >2.00 ng/mL - High risk of sepsis and/or septic shock. Performed By: #### E LEC #### [facility] ([id number]) [address], [address] [place] [address] Rheumatoid factor Nephelomet ry Qn (S)on 02-19-2024 RHEUMATOID FACTOR <10 Normal <20 [facility] Comment on above: Performed By: #### E LEC #### [facility] ([id number]) [address], [address] [address] S PNEUMONIAE AG Uon 02-19-20 S. pneumoniae Ag Ql (U) Negative Normal NEG [facility] Comment on above: Performed By: #### E LEC #### [facility] ([id number]) [address], [address] [address] SARS/FLU A+B/RSV by NAAT/Mol ecularon 02-19-2024 SARS/FLU [...] operators who are performing tests using either [employer] or [employer] systems and is limited to laboratories that [...] repeat. Fact Sheet for Healthcare Providers: https://www.fda.gov/media/ 835063/download Fact Sheet for Patients: https://www.fda.gov/media/ 100068/download [facility] Comment on above: Performed By: #### E LEC #### [facility] ([id number]) [address], [address] [place] [address] STREP PCR THROATon 4 S. pyogenes DNA ELIZABETH+probe Nom (Unsp spec) STREP PCR THROAT Negative (qualifier value) Streptococcus Group A NOT detected by nucleic acid amplification. [facility] Comment on above: Performed By: #### E LEC #### [facility] ([id number]) [address] [place] [address] Troponin I.cardiac High sens itivity method [Mass/Vol]on 02-19-2024 1 HOUR TROP I, HIGH SENSITIVITY 4 ng/L Normal <16 [facility] Comment on above: Performed By: #### E LEC #### [facility] ([id number]) [address], [address] [place] [address] TROPONIN I, HIGH SENSITIVITY 4 ng/L Normal <16 [facility] Comment on above: Performed By: #### C BC, BMP, 037[address]-3, 2777-1 #### [facility] ([id number]) [address], [address] [place] [address] URINE CULTUREon 02-19-2024 Bacteria identified Cx Nom [...] Interpretation NATALIA Status DAPTOMYCIN S F Susceptible [facility] Comment on above: Performed By: #### E LEC #### [facility] ([id number]) [address], [address] [place] [address] URN MACROSCOPIC NURon 2023 BILIRUBIN OLVIN Negative Normal NEG [facility] Comment on above: Performed By: #### E LEC #### [facility] ([id number]) [address], [address] [place] [address] BLOOD/HGB OLVIN Small Abnormal NEG [facility] Comment on above: Performed By: #### E LEC #### [facility] ([id number]) [address], [address] [place] [address] GLUCOSE OLVIN Negative Normal NEG [facility] Comment on above: Performed By: #### E LEC #### [facility] ([id number]) [address], [address] [place] [address] KETONES OLVIN Negative Normal NEG [facility] Comment on above: Performed By: #### E LEC #### [facility] ([id number]) [address], [address] [place] [address] LEUKOCYTE ESTERASE OLVIN Small Abnormal NEG [facility] Comment on above: Performed By: #### E LEC #### [facility] ([id number]) [address], [address] [place] [address] NITRITE OLVIN Negative Normal NEG [facility] Comment on above: Performed By: #### E LEC #### [facility] ([id number]) [address], [address] [place] [address] PH OLVIN 5.5 Normal 5.0-8.5 [facility] Comment on above: Performed By: #### E LEC #### [facility] ([id number]) [address], [address] [place] [address] PROTEIN OLVIN Negative Normal NEG [facility] [facility] Comment on above: Performed By: #### E LEC #### [facility] ([id number]) [address], [address] [place] [address] SPECIFIC GRAVITY OLVIN 1.015 Normal 1.003-1 .03 5 [facility] Comment on above: Performed By: #### E LEC #### [facility] ([id number]) [address], [address] [place] [address] UROBILINOGEN OLVIN 0.2 eu/dL Normal <1.1 [facility] Comment on above: Performed By: #### E LEC #### [facility] ([id number]) [address], [address] [place] [address] VENOUS BLOOD GASon 4 GUNJAN'S TEST Normal [facility] Comment on above: Performed By: #### E LEC #### [facility] ([id number]) [address], [address] [place] [address] Base excess Calc (Bld) [Moles/Vol] 10.0 mmol/L High 0.0-2.0 [facility] Comment on above: Performed By: #### E LEC #### [facility] ([id number]) [address], [address] [place] [address] Body temperature 98.6 [degF] Normal 37.0 [facility] Comment on above: Performed By: #### E LEC #### [facility] ([id number]) [address], [address] [place] [address] HCO3 (Bld) [Moles/Vol] 34.7 mmol/L High 20.0-24.0 [facility] Comment on above: Performed By: #### E LEC #### [facility] ([id number]) [address], [address] [place] [address] INSP. O2 CONC. 30 % Normal [facility] Comment on above: Performed By: #### E LEC #### [facility] ([id number]) [address], [address] [place] [address] Oxygen saturation in Blood 89.0 % Normal >80.0 [facility] Comment on above: Performed By: #### E LEC #### [facility] ([id number]) [address] [place] [address] OXYGEN SOURCE NC Normal [facility] Comment on above: Performed By: #### E LEC #### [facility] ([id number]) [address] [place] [address] PCO2, VENOUS 46.3 MMHG Normal 35-50 [facility] Comment on above: Performed By: #### E LEC #### [facility] ([id number]) [address] [place] [address] PH, VENOUS 7.482 High 7.320-7.42 0 [facility] Comment on above: Performed By: #### E LEC #### [facility] ([id number]) [address] [place] [address] PO2, VENOUS 53 MMHG High 30-50 [facility] Comment on above: Performed By: #### E LEC #### [facility] ([id number]) [address], [address] [place] [address] SAMPLE SITE N/A Normal [facility] Comment on above: Performed By: #### E LEC #### [facility] ([id number]) [address], [address] [place] [address] SAMPLE TYPE VENOUS Normal [facility] Comment on above: Performed By: #### E LEC #### [facility] ([id number]) [address] [place] [address] XR CHEST 1 VWon 02-19-2024 XR CHEST [...] Hayes MD on 02/19/2024 3:46 PM Normal [facility] aPTT Coag (PPP) [Time]on aPTT Coag (Bld) [Time] 32 s Normal 26-37 [facility] Comment on above: Performed By: #### C BC, BMP, 514[address]-1, 2777-1 #### [facility] ([id number]) [address] [place] [address] Basic Metabolic Panelon 01-27 Creatinine Clr Calc Pharmacy 50.21 Normal [facility] Comment on above: Result Comment: PERF ORMED BY: [place] [address] PATHOLOGIST MANGLE CATCHER JORGE MURRELL M.D. Performed By: #### E SR, CBC, CMP, BNP #### [place] [address] [place] GFR/1.73 sq M.predicted MDRD (S/P/Bld) [Vol rate/Area] mL/min/{1.73_m2} Normal [facility] Comment on above: Performed By: #### E SR, CBC, CMP, BNP #### [facility] [address] [place] [address] [place] Calcium [Mass/volume] in Ser um or PlasmaOrdered By: Lucho Grullon on 02-17-2024 Calcium [Mass/Vol] 8.5 mg/dL Low 8.6-10.3 [facility] Comment on above: Performed By: #### E SR, CBC, CMP, BNP #### [facility] [address] [place] [address] [place] Carbon dioxide, total [Moles /volume] in Serum or PlasmaOrdered By: Lucho Grullon on 02-17-2024 CO2 [Moles/Vol] 29.4 mmol/L Normal 21.0-31.0 [facility] Comment on above: Performed By: #### E SR, CBC, CMP, BNP #### [facility] [address] [place] [address] [place] Chloride [Moles/volume] in S kaveh or PlasmaOrdered By: Lucho Grullon on 02-17-2024 Chloride [Moles/Vol] 103 mmol/L Normal 98-107 [facility] Comment on above: Performed By: #### E SR, CBC, CMP, BNP #### [address] Creatinine [Mass/volume] in Serum or PlasmaOrdered By: Lucho Grullon on 02-17-2024 Creatinine [Mass/Vol] 0.90 mg/dL Normal 0.60-1.20 [facility] Comment on above: Performed By: #### E SR, CBC, CMP, BNP #### [address] Erythrocyte distribution wid th [Ratio] by Automated countOrdered By: Lucho Grullon on 02-17-2024 Erythrocyte distribution width (RBC) [Ratio] 18.2 % High 11.9-15.3 [facility] Comment on above: Performed By: #### E SR, CBC, CMP, BNP #### [address] Erythrocytes [#/volume] in B lood by Automated countOrdered By: Lucho Grullon on 02-17-2024 RBC (Bld) [#/Vol] 4.25 10*6/uL Normal 3.60-5.00 [facility] Comment on above: Performed By: #### E SR, CBC, CMP, BNP #### [address] Glucose [Mass/volume] in Ser um or PlasmaOrdered By: Lucho Grullon on 02-17-2024 Glucose [Mass/Vol] 85 mg/dL Normal 70-100 [facility] Comment on above: ADA recommended refe rence rangeRandom Glucose Reference Range is dependent on time and content of last meal. Glucose of more than 200 mg/dL in a nonstressed, ambulatory subject supports the diagnosis of Diabetes Mellitus. Result Comment: [place] om Glucose Reference Range is dependent on time and content of last meal. Glucose of more than 200 mg/dL in a nonstressed, ambulatory subject supports the diagnosis of Diabetes Mellitus. ADA recommended reference range Performed By: #### E SR, CBC, CMP, BNP #### [address] Hematocrit [Volume Fraction] of Blood by Automated countOrdered By: Lucho Grullon on 02-17-2024 Hematocrit (Bld) [Volume fraction] 32.8 % Low 34.0-46.4 [facility] Comment on above: Performed By: #### E SR, CBC, CMP, BNP #### [address] Hemoglobin [Mass/volume] in BloodOrdered By: Lucho Grullon on 02-17-2024 Hemoglobin (Bld) [Mass/Vol] 10.6 g/dL Low 11.8-15.4 [facility] Comment on above: Performed By: #### E SR, CBC, CMP, BNP #### [address] Hemogram CBC Without Diffon 02-17-2024 Mean Corpuscular HGB Conc 32.3 g/dL Normal 32.0-35.0 [facility] Comment on above: Performed By: #### E SR, CBC, CMP, BNP #### [address] WBC (Bld) [#/Vol] 10.9 10*3/uL Normal 3.8-11.6 [facility] Comment on above: Performed By: #### E SR, CBC, CMP, BNP #### [address] Leukocytes [#/volume] correc juma for nucleated erythrocytes in Blood by Automated counOrdered By: Lucho Grullon on 02-17-2024 WBC corrected for nucl RBC Auto (Bld) [#/Vol] 10.9 10*3/uL 3.8-11.6 [facility] MCH [Entitic mass] by Automa juma countOrdered By: Lucho Grullon on 02-17-2024 MCH (RBC) [Entitic mass] 24.9 pg Normal 24.7-34.3 [facility] Comment on above: Performed By: #### E SR, CBC, CMP, BNP #### [facility] [address] [place] [address] MCHC Auto (RBC) [Mass/Vol]Or dered By: Lucho Génesismariza on 02-17-2024 MCHC (RBC) [Mass/Vol] 32.3 g/dL 32.0-35.0 [facility] MCV [Entitic volume] by Auto mated countOrdered By: Lucho Génesismariza on 02-17-2024 MCV (RBC) [Entitic vol] 77.2 fL Low 80-100 [facility] Comment on above: Performed By: #### E SR, CBC, CMP, BNP #### [facility] [address] [place] [address] No Panel InformationOrdered By: Lucho Grullon on 02-17-2024 Estimated GFR (CKD-EPI) > 60.0 mL/Min [facility] Creatinine Clearance (Chem 50.21 [facility] Platelet mean volume [Entiti c volume] in Blood by Automated countOrdered By: Lucho Grullon on 02-17-2024 Platelet mean volume (Bld) [Entitic vol] 6.9 fL Normal 6.3-10.7 [facility] Comment on above: Result Comment: PERF ORMED BY: [place] [address] PATHOLOGIST MANGLE CATCHER JORGE MURRELL M.D. Performed By: #### E SR, CBC, CMP, BNP #### [facility] [address] [place] [address] Platelets [#/volume] in Bloo d by Automated countOrdered By: Lucho Grullon on 02-17-2024 Platelets (Bld) [#/Vol] 370 10*3/uL Normal 150-450 [facility] Comment on above: Performed By: #### E SR, CBC, CMP, BNP #### [facility] [address] [place] [address] Potassium [Moles/volume] in Serum or PlasmaOrdered By: Lucho Grullon on 02-17-2024 Potassium [Moles/Vol] 4.2 mmol/L Normal 3.5-5.1 [facility] Comment on above: Performed By: #### E SR, CBC, CMP, BNP #### [address] Serum or plasma anion gap de terminationOrdered By: Lucho Hammersylvia on 02-17-2024 Anion gap [Moles/Vol] 10.8 mmol/L Normal 6.0-15.0 [facility] Comment on above: Performed By: #### E SR, CBC, CMP, BNP #### [address] Sodium [Moles/volume] in Ser um or PlasmaOrdered By: Yaimajames Jaquelinsylvia on 02-17-2024 Sodium [Moles/Vol] 139 mmol/L Normal 136-145 [facility] Comment on above: Performed By: #### E SR, CBC, CMP, BNP #### [address] Urea nitrogen [Mass/volume] in Serum or PlasmaOrdered By: Yaimajames Jaquelinsylvia on 02-17-2024 Urea nitrogen [Mass/Vol] 8 mg/dL Normal 7-25 [facility] Comment on above: Performed By: #### E SR, CBC, CMP, BNP #### [address] Aerobic Cultureon 02-16-2024 Aerobic Culture Light Normal Respira tory Kimberly 2 Days Gram Stain Result 3+ White Blood Cells 1+ Epithelial Cells 2+ Gram Positive Cocci 1+ Yeast Like Elements PERFORMED BY: [place] [address] PATHOLOGIST MANGLE CATCHER JORGE MURRELL M.D. Normal [facility] Comment on above: Performed By: #### E SR, CBC, CMP, BNP #### [address] Basic Metabolic Panelon 04-2 Anion gap [Moles/Vol] 9.6 mmol/L Normal 6.0-15.0 [facility] Comment on above: Performed By: #### E SR, CBC, CMP, BNP #### [facility] [address] [place] [address] [place] Calcium [Mass/Vol] 8.5 mg/dL Low 8.6-10.3 [facility] Comment on above: Performed By: #### E SR, CBC, CMP, BNP #### [facility] [address] [place] [address] [place] Chloride [Moles/Vol] 103 mmol/L Normal 98-107 [facility] Comment on above: Performed By: #### E SR, CBC, CMP, BNP #### [facility] [address] [place] [address] [place] CO2 [Moles/Vol] 27.3 mmol/L Normal 21.0-31.0 [facility] Comment on above: Performed By: #### E SR, CBC, CMP, BNP #### [place] [address] [place] Creatinine [Mass/Vol] 0.92 mg/dL Normal 0.60-1.20 [facility] Comment on above: Performed By: #### E SR, CBC, CMP, BNP #### [place] [address] [place] Creatinine Clr Calc Pharmacy 47.75 Normal [facility] Comment on above: Result Comment: PERF ORMED BY: [place] [address] PATHOLOGIST MANGLE CATCHER JORGE MURRELL M.D. Performed By: #### E SR, CBC, CMP, BNP #### [place] [address] [place] GFR/1.73 sq M.predicted MDRD (S/P/Bld) [Vol rate/Area] mL/min/{1.73_m2} Normal [facility] Comment on above: Performed By: #### E SR, CBC, CMP, BNP #### [facility] [address] [place] [address] [place] Glucose [Mass/Vol] 83 mg/dL Normal 70-100 [facility] Comment on above: Result Comment: [place] Glucose Reference Range is dependent on time and content of last meal. Glucose of more than 200 mg/dL in a nonstressed, ambulatory subject supports the diagnosis of Diabetes Mellitus. ADA recommended reference range Performed By: #### E SR, CBC, CMP, BNP #### [address] Potassium [Moles/Vol] 3.9 mmol/L Normal 3.5-5.1 [facility] Comment on above: Performed By: #### E SR, CBC, CMP, BNP #### [address] Sodium [Moles/Vol] 136 mmol/L Normal 136-145 [facility] Comment on above: Performed By: #### E SR, CBC, CMP, BNP #### [address] Urea nitrogen [Mass/Vol] 9 mg/dL Normal 7-25 [facility] Comment on above: Performed By: #### E SR, CBC, CMP, BNP #### [address] Gram stain for investigation of transfusion reactionOrdered By: Lucho Grullon on 02-16-2024 Microscopic observation Gram stain Nom (Unsp spec) 1 Day [facility] Hemogram CBC Without Diffon 02-16-2024 Erythrocyte distribution width (RBC) [Ratio] 18.3 % High 11.9-15.3 [facility] Comment on above: Performed By: #### E SR, CBC, CMP, BNP #### [address] Hematocrit (Bld) [Volume fraction] 33.8 % Low 34.0-46.4 [facility] Comment on above: Performed By: #### E SR, CBC, CMP, BNP #### [address] Hemoglobin (Bld) [Mass/Vol] 10.6 g/dL Low 11.8-15.4 [facility] Comment on above: Performed By: #### E SR, CBC, CMP, BNP #### [address] MCH (RBC) [Entitic mass] 24.1 pg Low 24.7-34.3 [facility] Comment on above: Performed By: #### E SR, CBC, CMP, BNP #### [address] MCV (RBC) [Entitic vol] 76.8 fL Low 80-100 [facility] Comment on above: Performed By: #### E SR, CBC, CMP, BNP #### [address] Mean Corpuscular HGB Conc 31.4 g/dL Low 32.0-35.0 [facility] Comment on above: Performed By: #### E SR, CBC, CMP, BNP #### [address] Platelet mean volume (Bld) [Entitic vol] 7.1 fL Normal 6.3-10.7 [facility] Comment on above: Result Comment: PERF ORMED BY: [place] [address] PATHOLOGIST MANGLE CATCHER JORGE MURRELL M.D. Performed By: #### E SR, CBC, CMP, BNP #### [place] [address] [place] Platelets (Bld) [#/Vol] 373 10*3/uL Normal 150-450 [facility] Comment on above: Performed By: #### E SR, CBC, CMP, BNP #### [address] RBC (Bld) [#/Vol] 4.41 10*6/uL Normal 3.60-5.00 [facility] Comment on above: Performed By: #### E SR, CBC, CMP, BNP #### [address] WBC (Bld) [#/Vol] 11.1 10*3/uL Normal 3.8-11.6 [facility] Comment on above: Performed By: #### E SR, CBC, CMP, BNP #### [facility] [address] Basic Metabolic Panelon 042 0-2023 Anion gap [Moles/Vol] 9.8 mmol/L Normal 6.0-15.0 [facility] Comment on above: Performed By: #### E SR, CBC, CMP, BNP #### [address] Calcium [Mass/Vol] 8.4 mg/dL Low 8.6-10.3 [facility] Comment on above: Performed By: #### E SR, CBC, CMP, BNP #### [address] Chloride [Moles/Vol] 103 mmol/L Normal 98-107 [facility] Comment on above: Performed By: #### E SR, CBC, CMP, BNP #### [address] CO2 [Moles/Vol] 28.7 mmol/L Normal 21.0-31.0 [facility] Comment on above: Performed By: #### E SR, CBC, CMP, BNP #### [address] Creatinine [Mass/Vol] 1.16 mg/dL Normal 0.60-1.20 [facility] Comment on above: Performed By: #### E SR, CBC, CMP, BNP #### [place] [address] [place] Creatinine Clr Calc Pharmacy 37.75 Normal [facility] Comment on above: Performed By: #### E SR, CBC, CMP, BNP #### [place] [address] [place] GFR/1.73 sq M.predicted MDRD (S/P/Bld) [Vol rate/Area] 48.257 mL/min/{1.73_m2} Normal [facility] Comment on above: Performed By: #### E SR, CBC, CMP, BNP #### [place] [address] [place] Glucose [Mass/Vol] 79 mg/dL Normal 70-100 [facility] Comment on above: Result Comment: [place] Glucose Reference Range is dependent on time and content of last meal. Glucose of more than 200 mg/dL in a nonstressed, ambulatory subject supports the diagnosis of Diabetes Mellitus. ADA recommended reference range Performed By: #### E SR, CBC, CMP, BNP #### [facility] [address] Potassium [Moles/Vol] 3.5 mmol/L Normal 3.5-5.1 [facility] Comment on above: Performed By: #### E SR, CBC, CMP, BNP #### [facility] [address] Sodium [Moles/Vol] 138 mmol/L Normal 136-145 [facility] Comment on above: Performed By: #### E SR, CBC, CMP, BNP #### [address] Urea nitrogen [Mass/Vol] 14 mg/dL Normal 7-25 [facility] Comment on above: Performed By: #### E SR, CBC, CMP, BNP #### [address] Clostridioides difficile tox in B tcdB gene [Presence] in Stool by ELIZABETH with probe deteOrdered By: Lucho Grullon on 02-15-2024 C. difficile toxin B tcdB gene ELIZABETH+probe Ql (Stl) Negative Negative [facility] Comment on above: Testing performed by RT-PCR Clostridium Difficileon 01-27 Clostridium Difficile Negative Normal Negative [facility] Comment on above: Order Comment: > or = to 3 loose/watery stools in the last 24 HRS? Y Is patient on promotility agents or tube feeding? N Result Comment: Test ing performed by RT-PCR PERFORMED BY: [place] [address] PATHOLOGIST MANGLE CATCHER JORGE MURRELL M.D. Performed By: #### E SR, CBC, CMP, BNP #### [address] Hemogram CBC Without Diffon 02-15-2024 Erythrocyte distribution width (RBC) [Ratio] 18.2 % High 11.9-15.3 [facility] Comment on above: Performed By: #### E SR, CBC, CMP, BNP #### [address] Hematocrit (Bld) [Volume fraction] 34.6 % Normal 34.0-46.4 [facility] Comment on above: Performed By: #### E SR, CBC, CMP, BNP #### [address] Hemoglobin (Bld) [Mass/Vol] 10.9 g/dL Low 11.8-15.4 [facility] Comment on above: Performed By: #### E SR, CBC, CMP, BNP #### [address] MCH (RBC) [Entitic mass] 24.2 pg Low 24.7-34.3 [facility] Comment on above: Performed By: #### E SR, CBC, CMP, BNP #### [address] MCV (RBC) [Entitic vol] 77.1 fL Low 80-100 [facility] Comment on above: Performed By: #### E SR, CBC, CMP, BNP #### [address] Mean Corpuscular HGB Conc 31.4 g/dL Low 32.0-35.0 [facility] Comment on above: Performed By: #### E SR, CBC, CMP, BNP #### [address] Platelet mean volume (Bld) [Entitic vol] 7.0 fL Normal 6.3-10.7 [facility] Comment on above: Result Comment: PERF ORMED BY: [place] [address] PATHOLOGIST MANGLE CATCHER JORGE MURRELL M.D. Performed By: #### E SR, CBC, CMP, BNP #### [address] Platelets (Bld) [#/Vol] 333 10*3/uL Normal 150-450 [facility] Comment on above: Performed By: #### E SR, CBC, CMP, BNP #### [address] RBC (Bld) [#/Vol] 4.48 10*6/uL Normal 3.60-5.00 [facility] Comment on above: Performed By: #### E SR, CBC, CMP, BNP #### [address] WBC (Bld) [#/Vol] 10.0 10*3/uL Normal 3.8-11.6 [facility] Comment on above: Performed By: #### E SR, CBC, CMP, BNP #### [address] Lactoferrin, Stool WBCon Lactoferrin, Stool WBC LACTOFERRIN Positive for Fecal Lactoferrin Review patient history for chronic inflammatory conditions and status which can cause positive results unrelated to acute infectious disease. -- Reference range = Negative PERFORMED BY: [place] [address] PATHOLOGIST MANGLE CATCHER JORGE MURRELL M.D. Normal [facility] Comment on above: Performed By: #### E SR, CBC, CMP, BNP #### [address] Magnesium [Mass/volume] in S kaveh or PlasmaOrdered By: Lucho Grullon on 02-15-2024 Magnesium [Mass/Vol] 1.5 mg/dL Low 1.9-2.7 [facility] Comment on above: Result Comment: PERF ORMED BY: [place] [address] PATHOLOGIST MANGLE CATCHER JORGE MURRELL M.D. Performed By: #### E SR, CBC, CMP, BNP #### [place] [id number] [facility] Stool Cultureon 02-15-2024 Stool culture Negative for Shiga T oxin 1 Negative for Shiga Toxin 2 -- A negative Shiga Toxin result may occur if the antigen level in the specimen is below the detection limit of the assay. Stool culture results No Salmonella, Shigella, Campy or E. coli 0157:H7 Isolated PERFORMED BY: [place] [address] PATHOLOGIST MANGLE CATCHER JORGE MURRELL M.D. [place] [facility] Comment on above: Performed By: #### E SR, CBC, CMP, BNP #### [place] [id number] [facility] Stool bacteria identificatio n by cultureOrdered By: Lucho Grullon on 02-15-2024 Bacteria identified Cx Nom (Stl) [facility] Stool lactoferrin detectionO rdered By: Lucho Grullon on 02-15-2024 Lactoferrin Ql (Stl) [facility] US venous duplex LE RTon US venous duplex LE RT [facility] [place] [place] [address] Ultrasound Report Signed Patient: Gera Perdue MR#: [id number] : 1945 Acct:[id number] Age/Sex: 78 / F ADM Date: 02/14/24 Loc: Room: [address] [place] [address] Type: ADM IN Attending Dr: Lucho Grullon [...] Hilario Angulo MD02/15/2024 11:55 AM Dictation Location: [place] [address] Tech: Elizabeth Correiarebeca Transcribed By: ANA 02/15/24 1155 Dictated By: Hilario Angulo MD 02/15/24 1154 Signed By: 02/15/24 1155 Normal [facility] Alanine aminotransferase [En zymatic activity/volume] in Serum or PlasmaOrdered By: Kadie Jones on 02-14-2024 ALT [Catalytic activity/Vol] 5 U/L Low 7-52 [facility] Comment on above: Performed By: #### S CAN CBC, LIPASE, CMP, HS TROP, MG, NORMA #### [facility] [address] [place] [address] Albumin [Mass/volume] in Ser um or Plasma by Bromocresol green (BCG) dye binding methoOrdered By: Kadie Jones on 02-14-2024 Albumin BCG dye [Mass/Vol] 3.7 g/dL 3.5-5.7 [facility] Alkaline phosphatase [Enzyma tic activity/volume] in Serum or PlasmaOrdered By: Kadie Jones on 02-14-2024 ALP [Catalytic activity/Vol] 75 U/L Normal 34-104 [facility] Comment on above: Performed By: #### S CAN CBC, LIPASE, CMP, HS TROP, MG, NORMA #### [facility] [address] Amylase [Enzymatic activity/ volume] in Serum or PlasmaOrdered By: Kadie Abhilashimore on 02-14-2024 Amylase [Catalytic activity/Vol] 10 U/L Low 29-103 [facility] Comment on above: Performed By: #### S CAN CBC, LIPASE, CMP, HS TROP, MG, NORMA #### [facility] [address] Aspartate aminotransferase [ Enzymatic activity/volume] in Serum or PlasmaOrdered By: Kadie Bullimore on 02-14-2024 AST [Catalytic activity/Vol] 11 U/L Low 13-39 [facility] Comment on above: Performed By: #### S CAN CBC, LIPASE, CMP, HS TROP, MG, NORMA #### [facility] [address] [place] [address] Automated basophil %Ordered By: Kadie Karen on 02-14-2024 Basophils/100 WBC (Bld) 0.9 % Normal . [facility] Comment on above: Performed By: #### S CAN CBC, LIPASE, CMP, HS TROP, MG, NORMA #### [facility] [address] [place] [address] Automated basophil countOrde red By: Kadie Jones on 02-14-2024 Basophils (Bld) [#/Vol] 0.1 10*3/uL Normal 0.0-0.2 [facility] Comment on above: Result Comment: PERF ORMED BY: [place] [address] PATHOLOGIST MANGLE CATCHER JORGE MURRELL M.D. Performed By: #### S CAN CBC, LIPASE, CMP, HS TROP, MG, NORMA #### [facility] [address] [place] [address] Automated blood monocyte cou ntOrdered By: Kadie Jones on 02-14-2024 Monocytes (Bld) [#/Vol] 1.7 10*3/uL High 0.0-0.8 [facility] Comment on above: Performed By: #### S CAN CBC, LIPASE, CMP, HS TROP, MG, NORMA #### [address] Automated eosinophil %Ordere d By: Kadieruslan Hugnlamonte on 02-14-2024 Eosinophils/100 WBC (Bld) 0.4 % Normal . [facility] Comment on above: Performed By: #### S CAN CBC, LIPASE, CMP, HS TROP, MG, NORMA #### [address] Automated eosinophil countOr dered By: Kadie Abhilashlamonte on 02-14-2024 Eosinophils (Bld) [#/Vol] 0.0 10*3/uL Normal 0.0-0.45 [facility] Comment on above: Performed By: #### S CAN CBC, LIPASE, CMP, HS TROP, MG, NORMA #### [address] Automated erythrocytes count in urine sediment (number/area)Ordered By: Kadieruslan Hunglamonte on 02-14-2024 RBC Auto (Urine sed) [#/Area] 0-1 [HPF] 0-4 [facility] Automated leukocytes count i n urine sediment (number/area)Ordered By: Kadie Hungjessicaore on 02-14-2024 WBC Auto (Urine sed) [#/Area] 50-100 [HPF] 0-4 [facility] Automated monocyte %Ordered By: Kadie Hunglamonte on 02-14-2024 Monocytes/100 WBC (Bld) 12.3 % Normal . [facility] Comment on above: Performed By: #### S CAN CBC, LIPASE, CMP, HS TROP, MG, NORMA #### [facility] [address] [place] [address] Automated neutrophil %Ordere d By: Kadei Hungjessicaore on 02-14-2024 Neutrophils/100 WBC (Bld) 62.7 % Normal . [facility] Comment on above: Performed By: #### S CAN CBC, LIPASE, CMP, HS TROP, MG, NORMA #### [address] Automated urine color determ inationOrdered By: Kadie Jones on 02-14-2024 Color (U) Dark yellow Critically abnormal Yellow [facility] Comment on above: Order Comment: Name Collection Type:: Straight Catheter Performed By: #### E SR, CBC, CMP, BNP #### [address] BNP ser/plasOrdered By: Bianca er Karen on 02-14-2024 Natriuretic peptide B (Bld) [Mass/Vol] 29.0 pg/mL Normal 5-100 [facility] Comment on above: Result Comment: PERF ORMED BY: [place] [address] PATHOLOGIST MANGLE CATCHER JORGE MURRELL M.D. Performed By: #### E SR, CBC, CMP, BNP #### [address] Bilirubin Test strip Ql (U)O rdered By: Kadie Jones on 02-14-2024 Bilirubin Ql (U) Negative Negative [facility] Bilirubin.total [Mass/volume ] in Serum or PlasmaOrdered By: Kadie Jones on 02-14-2024 Bilirubin [Mass/Vol] 0.5 mg/dL Normal 0.3-1.0 [facility] Comment on above: Performed By: #### S CAN CBC, LIPASE, CMP, HS TROP, MG, NORMA #### [address] Blood Cultureon 02-14-2024 Bacteria identified Cx Nom (Bld) NO GROWTH 5 DAYS PERFORMED BY: [place] [address] PATHOLOGIST MANGLE CATCHER JORGE MURRELL M.D. Normal [facility] Comment on above: Performed By: #### E SR, CBC, CMP, BNP #### [address] Bacteria identified Cx Nom (Bld) NO GROWTH 5 DAYS PERFORMED BY: [place] [address] PATHOLOGIST MANGLE CATCHER JORGE MURRELL M.D. Normal [facility] Comment on above: Performed By: #### E SR, CBC, CMP, BNP #### [facility] [address] [place] [address] [facility] COVID CepheidOrdered By: Abbi Jones on 02-14-2024 SARS-CoV-2 (COVID-19) Ab IA Ql Negative Negative [facility] Comment on above: This is a duplicate Cepheid Xpert Xpress CoV-2/Flu/RSV Plus RNA by RT-PCR result to be used for statistical tracking purpose only. SARS-CoV-2 (COVID-19) RNA ELIZABETH+probe Ql (Unsp spec) [facility] COVID-19 / Flu A/B / RSV [...] or Cepheid Disclaimer revoked sooner. PERFORMED BY: [place] [address] PATHOLOGIST MANGLE CATCHER JORGE MURRELL M.D. Normal [facility] Comment on above: Performed By: #### E SR, CBC, CMP, BNP #### [address] abdomen pelvis w conon CT abdomen pelvis w con [place] [facility] [address] [place] [address] CT Scan Report Signed Patient: Gera Perdue MR#: [id number] : 1945 Acct:[id number] Age/Sex: 78 / F ADM Date: 02/14/24 Loc: ER Room: Type: [facility] ER Attending Dr: Copies to: CHIP Greenwood [...] noted, as above. Impression dictated by: Bhavesh Avendaoñ M.D.02/14/2024 2:21 PM Dictation Location: [place] [address] Transcribed By: [facility] 02/14/24 1421 Dictated By: Bhavesh Avendaño II, MD 02/14/24 1411 Signed By: 02/14/24 1421 Normal [facility] Calcium [Mass/volume] in Ser um or PlasmaOrdered By: Kadie Bullimore on 02-14-2024 Calcium [Mass/Vol] 9.5 mg/dL Normal 8.6-10.3 [facility] Comment on above: Performed By: #### S CAN CBC, LIPASE, CMP, HS TROP, MG, NORMA #### [address] Carbon dioxide, total [Moles /volume] in Serum or PlasmaOrdered By: Kadie Jones on 02-14-2024 CO2 [Moles/Vol] 30.8 mmol/L Normal 21.0-31.0 [facility] Comment on above: Performed By: #### S CAN CBC, LIPASE, CMP, HS TROP, MG, NORMA #### [facility] [address] Cepheid COVID PCR Negativeon 02-14-2024 SARS-CoV-2 (COVID-19) RNA ELIZABETH+probe Ql (Unsp spec) Negative Normal Negative [facility] Comment on above: Result Comment: This is a duplicate Cepheid Xpert Xpress CoV-2/Flu/RSV Plus RNA by RT-PCR result to be used for statistical tracking purpose only. PERFORMED BY: [place] [address] PATHOLOGIST MANGLE CATCHER JORGE MURRELL M.D. Performed By: #### E SR, CBC, CMP, BNP #### [facility] [address] [place] [address] [place] Chloride [Moles/volume] in S kaveh or PlasmaOrdered By: Kadie Hungimore on 02-14-2024 Chloride [Moles/Vol] 97 mmol/L Low 98-107 [facility] Comment on above: Performed By: #### S CAN CBC, LIPASE, CMP, HS TROP, MG, NORMA #### [facility] [address] Comprehensive Metabolic Pane harsha 02-14-2024 Albumin [Mass/Vol] 3.7 g/dL Normal 3.5-5.7 [facility] Comment on above: Performed By: #### S CAN CBC, LIPASE, CMP, HS TROP, MG, NORMA #### [address] Creatinine Clr Calc Pharmacy 32.86 Normal [facility] Comment on above: Performed By: #### S CAN CBC, LIPASE, CMP, HS TROP, MG, NORMA #### [address] GFR/1.73 sq M.predicted MDRD (S/P/Bld) [Vol rate/Area] 41.325 mL/min/{1.73_m2} Normal [facility] Comment on above: Performed By: #### S CAN CBC, LIPASE, CMP, HS TROP, MG, NORMA #### [address] Creatinine [Mass/volume] in Serum or PlasmaOrdered By: Kadie Jones on 02-14-2024 Creatinine [Mass/Vol] 1.32 mg/dL High 0.60-1.20 [facility] Comment on above: Performed By: #### S CAN CBC, LIPASE, CMP, HS TROP, MG, NORMA #### [place] [address] [place] Dipstick and Microscopicon 0 02-14-2024 Appearance (U) Clear Normal Clear [facility] Comment on above: Order Comment: Name Collection Type:: Straight Catheter Performed By: #### E SR, CBC, CMP, BNP #### [place] [address] [place] Bacteria,Urine 4+ High None Seen [facility] Comment on above: Order Comment: Name Collection Type:: Straight Catheter Performed By: #### E SR, CBC, CMP, BNP #### [address] Bilirubin,Urine Negative Normal Negative [facility] Comment on above: Order Comment: Name Collection Type:: Straight Catheter Performed By: #### E SR, CBC, CMP, BNP #### [place] [address] [place] Glucose Ql (U) Normal Normal Normal [facility] Comment on above: Order Comment: Name Collection Type:: Straight Catheter Performed By: #### E SR, CBC, CMP, BNP #### [place] [address] [place] Hyaline Casts,Urine 9-19 High 0-8 [facility] Comment on above: Order Comment: Name Collection Type:: Straight Catheter Result Comment: PERF ORMED BY: [place] [address] PATHOLOGIST MANGLE CATCHER JORGE MURRELL M.D. Performed By: #### E SR, CBC, CMP, BNP #### [address] Ketones Ql (U) Trace High Negative [facility] Comment on above: Order Comment: Name Collection Type:: Straight Catheter Performed By: #### E SR, CBC, CMP, BNP #### [place] [address] [place] Leukocyte esterase Test strip Ql (U) 3+ High Negative [facility] Comment on above: Order Comment: Name Collection Type:: Straight Catheter Performed By: #### E SR, CBC, CMP, BNP #### [place] [address] [place] Nitrite,Urine Positive High Negative [facility] Comment on above: Order Comment: Name Collection Type:: Straight Catheter Performed By: #### E SR, CBC, CMP, BNP #### [place] [address] [place] Occult Blood,Urine Trace High Negative [facility] Comment on above: Order Comment: Name Collection Type:: Straight Catheter Result Comment: PERF ORMED BY: [place] [address] PATHOLOGIST MANGLE CATCHER JORGE MURRELL M.D. Performed By: #### E SR, CBC, CMP, BNP #### [facility] [address] RBC LM.HPF (Urine sed) [#/Area] 0 /[HPF] Normal 0-4 [facility] Comment on above: Order Comment: Name Collection Type:: Straight Catheter Performed By: #### E SR, CBC, CMP, BNP #### [address] Specificy [place],Urine 1.024 Normal 1.001-1.03 0 [facility] Comment on above: Order Comment: Name Collection Type:: Straight Catheter Performed By: #### E SR, CBC, CMP, BNP #### [address] Squamous Epithelial Cell,Urine None Seen Normal 0-2 [facility] Comment on above: Order Comment: Name Collection Type:: Straight Catheter Performed By: #### E SR, CBC, CMP, BNP #### [address] Urobilinogen,Urine Normal Normal Normal [facility] Comment on above: Order Comment: Name Collection Type:: Straight Catheter Performed By: #### E SR, CBC, CMP, BNP #### [address] WBC,Urine 50-100 High 0-4 [facility] Comment on above: Order Comment: Name Collection Type:: Straight Catheter Performed By: #### E SR, CBC, CMP, BNP #### [address] ECG 12 lead ECGon 02-14-2024 ECG 12 lead ECG [facility] [address] [place] [address] Electrocardiograph Report Signed Patient: Gera Perdue MR#: [id number] : 1945 Acct:[id number] Age/Sex: 78 / F ADM Date: 02/14/24 Loc: ER Room: Type: [facility] ER Attending Dr: Ordering Provider: CHIP Greenwood [...] was found Confirmed by MARSHALL DOMINGUEZ DO ([id number]) on 02/14/2024 3:23:36 PM Referred By: Electronically Signed By:MARSHALL DOMINGUEZ DO Transcribed By: MUS Signed By Marshall Dominguez DO 02/13 1523 Normal [facility] Erythrocyte distribution wid th [Ratio] by Automated countOrdered By: Kadie Jones on 02-14-2024 Erythrocyte distribution width (RBC) [Ratio] 18.4 % High 11.9-15.3 [facility] Comment on above: Performed By: #### S CAN CBC, LIPASE, CMP, HS TROP, MG, NORMA #### [facility] [address] Erythrocytes [#/volume] in B lood by Automated countOrdered By: Kadie Jones on 02-14-2024 RBC (Bld) [#/Vol] 5.04 10*6/uL High 3.60-5.00 [facility] Comment on above: Performed By: #### S CAN CBC, LIPASE, CMP, HS TROP, MG, NORMA #### [facility] [address] Glucose [Mass/volume] in Ser um or PlasmaOrdered By: Kadie Jones on 02-14-2024 Glucose [Mass/Vol] 85 mg/dL Normal 70-100 [facility] Comment on above: ADA recommended refe rence rangeRandom Glucose Reference Range is dependent on time and content of last meal. Glucose of more than 200 mg/dL in a nonstressed, ambulatory subject supports the diagnosis of Diabetes Mellitus. Result Comment: [place] om Glucose Reference Range is dependent on time and content of last meal. Glucose of more than 200 mg/dL in a nonstressed, ambulatory subject supports the diagnosis of Diabetes Mellitus. ADA recommended reference range Performed By: #### S CAN CBC, LIPASE, CMP, HS TROP, MG, NORMA #### [address] Hematocrit [Volume Fraction] of Blood by Automated countOrdered By: Kadie Jones on 02-14-2024 Hematocrit (Bld) [Volume fraction] 38.5 % Normal 34.0-46.4 [facility] Comment on above: Performed By: #### S CAN CBC, LIPASE, CMP, HS TROP, MG, NORMA #### [address] Hemoglobin [Mass/volume] in BloodOrdered By: Kadie Jones on 02-14-2024 Hemoglobin (Bld) [Mass/Vol] 12.2 g/dL Normal 11.8-15.4 [facility] Comment on above: Performed By: #### S CAN CBC, LIPASE, CMP, HS TROP, MG, NORMA #### [address] Ketones Auto test strip (U) [Mass/Vol]Ordered By: Kadie Jones on 02-14-2024 Ketones (U) [Mass/Vol] Trace Negative [facility] - UrinalysisOrder ed By: Kadie Jones on 02-14-2024 Hyaline casts LM Ql (Urine sed) 9-19 [LPF] 0-8 [facility] Lactate [Moles/volume] in Se rum or PlasmaOrdered By: Kdaie Jones on 02-14-2024 Lactate [Moles/Vol] 0.8 mmol/L Normal 0.5-2.2 [facility] Comment on above: Result Comment: PERF ORMED BY: [place] [address] PATHOLOGIST MANGLE CATCHER JORGE MURRELL M.D. Performed By: #### E SR, CBC, CMP, BNP #### [address] Leukocytes [#/volume] correc juma for nucleated erythrocytes in Blood by Automated counOrdered By: Kadie Jones on 02-14-2024 WBC corrected for nucl RBC Auto (Bld) [#/Vol] 13.6 10*3/uL 3.8-11.6 [facility] Leukocytes [#/volume] in Blo od by Automated countOrdered By: Kadie Jones on 02-14-2024 WBC (Bld) [#/Vol] 13.6 10*3/uL High 3.8-11.6 [facility] Comment on above: Performed By: #### S CAN CBC, LIPASE, CMP, HS TROP, MG, NORMA #### [facility] [address] Lipase [Enzymatic activity/v olume] in Serum or PlasmaOrdered By: Kadie Jones on 02-14-2024 Lipase [Catalytic activity/Vol] 6.0 U/L Low 11.0-82.0 [facility] Comment on above: Result Comment: PERF ORMED BY: [place] [address] PATHOLOGIST MANGLE CATCHER JORGE MURRELL M.D. Performed By: #### S CAN CBC, LIPASE, CMP, HS TROP, MG, NORMA #### [facility] [address] [place] [address] Lymphocytes [#/volume] in Bl ood by Automated countOrdered By: Kadie Jones on 02-14-2024 Lymphocytes (Bld) [#/Vol] 3.2 10*3/uL Normal 1.00-4.8 [facility] Comment on above: Performed By: #### S CAN CBC, LIPASE, CMP, HS TROP, MG, NORMA #### [facility] [address] [place] [address] [place] Lymphocytes/100 leukocytes i n Blood by Automated countOrdered By: Kadie Jones on 02-14-2024 Lymphocytes/100 WBC (Bld) 23.7 % Normal . [facility] Comment on above: Performed By: #### S CAN CBC, LIPASE, CMP, HS TROP, MG, NORMA #### [facility] [address] [place] [address] MCH [Entitic mass] by Automa juma countOrdered By: Kadie Hungimore on 02-14-2024 MCH (RBC) [Entitic mass] 24.3 pg Low 24.7-34.3 [facility] Comment on above: Performed By: #### S CAN CBC, LIPASE, CMP, HS TROP, MG, NORMA #### [facility] [address] [place] [address] MCHC Auto (RBC) [Mass/Vol]Or dered By: Kadie Bullimore on 02-14-2024 MCHC (RBC) [Mass/Vol] 31.8 g/dL 32.0-35.0 [facility] MCV [Entitic volume] by Auto mated countOrdered By: Kadie Jones on 02-14-2024 MCV (RBC) [Entitic vol] 76.4 fL Low 80-100 [facility] Comment on above: Performed By: #### S CAN CBC, LIPASE, CMP, HS TROP, MG, NORMA #### [facility] [address] [place] [address] Magnesium [Mass/volume] in S kaveh or PlasmaOrdered By: Kadie Bullimtulio on 02-14-2024 Magnesium [Mass/Vol] 1.1 mg/dL Low 1.9-2.7 [facility] Comment on above: Performed By: #### S CAN CBC, LIPASE, CMP, HS TROP, MG, NORMA #### [facility] [address] [place] [address] Monocyte distribution width [Entitic volume] in Blood by AutomatedOrdered By: Kadie Jones on 02-14-2024 Monocyte distribution width Auto (Bld) [Entitic vol] 25.16 % 0.00-20.00 [facility] Comment on above: For adults in ED, MD W > 20.0 may be associated with a higher risk of sepsis during the first 12 hrs of hospital admission Neutrophils [#/volume] in Bl ood by Automated countOrdered By: Kadie Hungimore on 02-14-2024 Neutrophils (Bld) [#/Vol] 8.5 10*3/uL High 1.8-7.7 [facility] Comment on above: Performed By: #### S CAN CBC, LIPASE, CMP, HS TROP, MG, NORMA #### [facility] [address] [place] [address] [place] Nitrite Test strip Ql (U)Ord ered By: Kadie Jones on 02-14-2024 Nitrite Ql (U) Positive Negative [facility] No Panel InformationOrdered By: Kadie Jones on 02-14-2024 Estimated GFR (CKD-EPI) 41.325 mL/Min [facility] Creatinine Clearance (Chem 32.86 [facility] Nucleated erythrocytes [Pres ence] in Blood by Automated countOrdered By: Kadie Jones on 02-14-2024 Nucleated RBC Auto Ql (Bld) 0.1 /100{WBC} 0-0.5 [facility] Platelet adequacy [Presence] in Blood by Light microscopyOrdered By: Kadie Jones on 02-14-2024 Platelets LM Ql (Bld) Normal Normal [facility] Platelet mean volume [Entiti c volume] in Blood by Automated countOrdered By: Kadie Jones on 02-14-2024 Platelet mean volume (Bld) [Entitic vol] 7.0 fL Normal 6.3-10.7 [facility] Comment on above: Performed By: #### S CAN CBC, LIPASE, CMP, HS TROP, MG, NORMA #### [facility] [address] [place] [id number] [facility] Platelet morphology finding [Identifier] in BloodOrdered By: Kadie Jones on 02-14-2024 Platelet morphology finding Nom (Bld) Normal Normal [facility] Platelets [#/volume] in Bloo d by Automated countOrdered By: Kadie Jones on 02-14-2024 Platelets (Bld) [#/Vol] 448 10*3/uL Normal 150-450 [facility] Comment on above: Performed By: #### S CAN CBC, LIPASE, CMP, HS TROP, MG, ONRMA #### [facility] [address] [place] [id number] [place] Potassium [Moles/volume] in Serum or PlasmaOrdered By: Kadie Jones on 02-14-2024 Potassium [Moles/Vol] 4.0 mmol/L Normal 3.5-5.1 [facility] Comment on above: Performed By: #### S CAN CBC, LIPASE, CMP, HS TROP, MG, NORMA #### [address] Protein [Mass/volume] in Ser um or PlasmaOrdered By: Kadie Jones on 02-14-2024 Protein [Mass/Vol] 7.9 g/dL Normal 6.4-8.9 [facility] Comment on above: Performed By: #### S CAN CBC, LIPASE, CMP, HS TROP, MG, NORMA #### [address] RBC morphologyOrdered By: Jeannie Jones on 02-14-2024 RBC morphology finding Nom (Bld) Normal Normal Normal [facility] Comment on above: Performed By: #### S CAN CBC, LIPASE, CMP, HS TROP, MG, NORMA #### [address] Scan and CBCon 02-14-2024 Mean Corpuscular HGB Conc 31.8 g/dL Low 32.0-35.0 [facility] Comment on above: Performed By: #### S CAN CBC, LIPASE, CMP, HS TROP, MG, NORMA #### [address] Monocytes/100 WBC (Bld) 25.16 % High 0.00-20.00 [facility] Comment on above: Result Comment: For adults in ED, MDW > 20.0 may be associated with a higher risk of sepsis during the first 12 hrs of hospital admission Performed By: #### S CAN CBC, LIPASE, CMP, HS TROP, MG, NORMA #### [address] NRBC% 0.1 /100{WBC} Normal 0-0.5 [facility] Comment on above: Performed By: #### S CAN CBC, LIPASE, CMP, HS TROP, MG, NORMA #### [address] Platelet Estimate Normal Normal Normal [facility] Comment on above: Performed By: #### S CAN CBC, LIPASE, CMP, HS TROP, MG, NORMA #### [address] Platelet Morphology Normal Normal Normal [facility] Comment on above: Result Comment: PERF ORMED BY: [place] [address] PATHOLOGIST MANGLE CATCHER JORGE MURRELL M.D. Performed By: #### S CAN CBC, LIPASE, CMP, HS TROP, MG, NORMA #### [address] Serum globulin measurement b y calculation (mass/volume)Ordered By: Kadie Bullimore on 02-14-2024 Globulin (S) [Mass/Vol] 4.2 g/dL Normal [facility] Comment on above: Performed By: #### S CAN CBC, LIPASE, CMP, HS TROP, MG, NORMA #### [address] Serum or plasma albumin/glob ulin mass ratioOrdered By: Kadie Bullimore on 02-14-2024 Albumin/Globulin [Mass ratio] 0.9 {ratio} [facility] Comment on above: Performed By: #### S CAN CBC, LIPASE, CMP, HS TROP, MG, NORMA #### [address] Serum or plasma anion gap de terminationOrdered By: Kadie Bullimore on 02-14-2024 Anion gap [Moles/Vol] 14.2 mmol/L Normal 6.0-15.0 [facility] Comment on above: Performed By: #### S CAN CBC, LIPASE, CMP, HS TROP, MG, NORMA #### [address] Sodium [Moles/volume] in Ser um or PlasmaOrdered By: Kadie Bullimore on 02-14-2024 Sodium [Moles/Vol] 138 mmol/L Normal 136-145 [facility] Comment on above: Performed By: #### S CAN CBC, LIPASE, CMP, HS TROP, MG, NORMA #### [facility] [address] Specific gravity Auto test s trip (U) [Rel density]Ordered By: Kadie Jones on 02-14-2024 Specific gravity (U) [Rel density] 1.024 1.001-1.03 0 [facility] Squamous epithelial cells de tection in urine sediment by light microscopyOrdered By: Kadie Jones on 02-14-2024 Epithelial cells.squamous LM Ql (Urine sed) None seen [HPF] 0-2 [facility] Troponin I High Sensitivityo n 02-14-2024 Troponin I High Sensitivity 6.5 pg/mL Normal 0.0-15.0 [facility] Comment on above: Result Comment: PERF ORMED BY: [place] [address] PATHOLOGIST MANGLE CATCHER JORGE MURRELL M.D. Performed By: #### S CAN CBC, LIPASE, CMP, HS TROP, MG, NORMA #### [address] Troponin I.cardiac [Mass/vol ume] in Serum or Plasma by Detection limit <= 0.01 ng/Ordered By: Kadie Jones on 02-14-2024 Troponin I.cardiac DL <= 0.01 ng/mL [Mass/Vol] 6.5 pg/mL 0.0-15.0 [facility] Urea nitrogen [Mass/volume] in Serum or PlasmaOrdered By: Kadie Jones on 02-14-2024 Urea nitrogen [Mass/Vol] 18 mg/dL Normal 7-25 [facility] Comment on above: Performed By: #### S CAN CBC, LIPASE, CMP, HS TROP, MG, NORMA #### [address] Urine Cultureon 02-14-2024 Bacteria identified Cx Nom (U) ORGANISM: Klebsiella pneumoniae (O:KLEPNE) [place] Count >100,000 Aerobic NATALIA Charge (NMIC56) SUSCEPTIBILITY [...] RESISTANT TO ALL B-LACTAM DRUGS. PERFORMED BY: [place] [address] PATHOLOGIST MANGLE CATCHER JORGE MURRELL M.D. Normal [facility] Comment on above: Performed By: #### E SR, CBC, CMP, BNP #### [address] Urine bacteria detection by automated methodOrdered By: Kadie Jones on 02-14-2024 Bacteria Auto Ql (U) 4+ None Seen [facility] Urine clarity by refractomet ry automatedOrdered By: Kadie Jones on 02-14-2024 Clarity Refractometry automated (U) Clear Clear [facility] Urine culture routineOrdered By: Kadie Jones on 02-14-2024 Bacteria identified Cx Nom (U) Klebsiella pneumoniae [facility] Urine glucose measurement by automated test strip (mass/volume)Ordered By: Kadie Jones on 02-14-2024 Glucose Auto test strip (U) [Mass/Vol] Normal mg/dL Normal [facility] Urine hemoglobin detection b y automated test stripOrdered By: Kadie Jones on 02-14-2024 Hemoglobin Auto test strip Ql (U) Trace Negative [facility] Urine leukocyte esterase det ection by automated test stripOrdered By: Kadie Jones on 02-14-2024 Leukocyte esterase Auto test strip Ql (U) 3+ Negative [facility] Urine pH measurement by auto mated test stripOrdered By: Kadie Jones on 02-14-2024 pH (U) 5.5 [pH] Normal 5.0-9.0 [facility] Comment on above: Order Comment: Name Collection Type:: Straight Catheter Performed By: #### E SR, CBC, CMP, BNP #### [facility] [address] Urine protein measurement by automated test strip (mass/volume)Ordered By: Kadie Jones on 02-14-2024 Protein (U) [Mass/Vol] 30 mg/dL High Negative [facility] Comment on above: Order Comment: Name Collection Type:: Straight Catheter Performed By: #### E SR, CBC, CMP, BNP #### [facility] [address] [place] [id number] [facility] Urobilinogen Auto test strip (U) [Mass/Vol]Ordered By: Kadie Jones on 02-14-2024 Urobilinogen (U) [Mass/Vol] Normal mg/dL Normal [facility] XR chest 1V portableon 02-13 XR chest 1V portable [place] [facility] [place] [address] [place] [address] XRay Report Signed Patient: Gera Perdue MR#: [id number] : 1945 Acct:[id number] Age/Sex: 78 / F ADM Date: 02/14/24 Loc: ER Room: Type: [facility] ER Attending Dr: Copies to: CHIP [place] [...] Bhavesh Avendaño M.D.02/14/2024 12:59 PM Dictation Location: [place] [address] Transcribed By: [facility] 02/14/24 1259 Dictated By: Bhavesh Avendaño II, MD 02/14/24 1257 Signed By: 02/14/24 1259 Normal [facility] C Urineon 02-01-2024 Bacteria identified Cx Nom (U) Microbiology PROCEDURE: Urine Culture [R1] SOURCE: U Random BODY SITE: COLLECTED DATE/TIME: 01/30/2024 14:39 EDT RECEIVED DATE/TIME: 01/30/2024 19:21 EDT START DATE/TIME: 01/30/2024 19:21 EDT FREE TEXT SOURCE: MATILDA Ponce APRN-C, MATILDA Ponce APRN-C, Renae X Renae X FINAL REPORTS Final Report [] Verified Date/Time: 02/01/2024 09:31 EDT <10,000 cfu/ml Mixed skin contaminants Mixed kimberly (multiple species present) Performing Locations R1: This test was performed at: [facility], [address] [place] [address], [address] , , [facility] Comment on above: Performed By: #### 2 [id number] #### [facility] [address] [place] [address] Formson 01-31-2024 Forms [id number] Normal [facility] Physician Referralon 024 Physician Referral [id number] Normal [facility] Ambulatory Visit Summaryon 0 01-30-2024 Ambulatory Visit Summary GERA PERDUE :1945 Visit Date:01/30/2024 Ambulatory Visit Instructions Your Diagnosis Chronic kidney disease (CKD), stage III (moderate) Female incontinence Your Care Team Attending Physician - CHIP Ponce APRN, Aurora X Primary Care Physician - GUSTAVO SALAS [...] Atherosclerosis of aorta Atherosclerotic heart disease of [place] coronary artery without angina pectoris Carotid stenosis [...] for choosing us for your care. Antoine Garcia [facility] Patient Educationon 01-30-20 Patient Education Obstetrics [...] this condition includes: ? Antibiotic medicine. ? Odln-foa-xogezqt medicines to treat discomfort. ? Drinking enough [...] these instructions at home: Medicines ? Take aitc-zke-tqzfphv and prescription medicines only as told by [...] Document Revie (more content not included)... Normal Garcia [facility] Urology Office/Clinic Noteon 01-30-2024 Urology Office/Clinic Note Chief Complaint Interventional Pain Physician referal for incontinence HPI Staff 78 year old female referred by Dr. Salas for incontinence. Micro UA done 12/30/23. She states she thought she seen Dr. Croft before (nothing on [employer]) she just knows it was a long time ago Started at [facility] September with UTI and was transferred to [facility] in October is when they told her [...] with voice recognition artificial intelligence software, specifically [employer], [employer] and or [employer]. Substitutions may have occurred due to the [...] our office. Rx sent to [facility] in [place]. - Start antibiotics today - Send urine for culture Ordered: cephalexin, 500 mg = 1 cap(s), Oral, q12hr, X 7 day(s), # 14 cap(s), Refills(s) 0, Pharmacy: [id number], 170, cm, 01/30/24 13:39:00 [...] reevaluate after procedure Ordered: Urine Culture Orders: [id number] Measure Post Void residual urine and/or bladder capacity by US- non-imaging Urnls Dip Stick Auto w/o Microscopy POC 95548 Urnls Dip Stick Auto w/o Microscopy POC 46716 Follow-up With When Contact Information CHIP Ponce APRN, Renae Delaney, FAM, URL Additional Instruction (more content not included)... Normal [facility] Comment on above: Result Comment: Elec tronically Signed By: CHIP Ponce APRN, Aurora X\.br\Date and Time Signed: 01/30/24 14:52 EDT TRANSTHORACIC ECHO (TTE) COM PLETEon 01-27-2024 TRANSTHORACIC ECHO (TTE) COMPLETE [address], [address] [address] TRANSTHORACIC ECHOCARDIOGRAM REPORT Patient Name: GERA Herminio Hernandez Physician: [id number] Seth Barnes MD, [facility] Study Date: 01/27/2024 Ordering Provider: [id number] JENNA ENGLE MRN/PID: [id number] Fellow: Nurse: Date of /Age: 1 1945 / 78 years Chief Substation Operator: Inessa Roche RDCS, RVT Gender: F Additional Staff: Height: 162.56 cm Admit Date: Weight: 87.09 kg Admission Status: BSA / BMI: 1.92 m2 / 32.96 kg/m2 Department Location: [facility] Blood Pressure: 126 /78 mmHg Study Type: TRANSTHORACIC ECHO (TTE) COMPLETE Diagnosis/ICD: Shortness of breath-R06.02 Indication: History of PEA-09/2023, CAD, PTCA-04/2019, COPD, HTN, Hyperlipidemia, Tobacco Abuse, Hypoxemia, Sid, CKD-Stage III, Anemia CPT Codes: Echo Complete w Full Doppler-74104 Study Detail: The following Echo studies were [...] 1.1 m/s (0.6-0.9m/s) PV Max P.5 mmHg [id number] Seth Barnes MD, FACC Electronically signed on 01/29/2024 at 7:26:59 PM Final [facility] Alanine aminotransferase [En zymatic activity/volume] in Serum or PlasmaOrdered By: Jenna Engle on 01-06-2024 ALT [Catalytic activity/Vol] 19 U/L Normal 7-52 [facility] Comment on above: Performed By: #### E SR, CBC, CMP, BNP #### [facility] [address] [place] [address] Albumin [Mass/volume] in Ser um or Plasma by Bromocresol green (BCG) dye binding methoOrdered By: Jenna Engle on 01-06-2024 Albumin BCG dye [Mass/Vol] 3.9 g/dL 3.5-5.7 [facility] Alkaline phosphatase [Enzyma tic activity/volume] in Serum or PlasmaOrdered By: Jenna Engle on 01-06-2024 ALP [Catalytic activity/Vol] 66 U/L Normal 34-104 [facility] Comment on above: Result Comment: PERF ORMED BY: [place] [address] PATHOLOGIST MANGLE CATCHER JORGE MURRELL M.D. Performed By: #### E SR, CBC, CMP, BNP #### [address] Aspartate aminotransferase [ Enzymatic activity/volume] in Serum or PlasmaOrdered By: Jenna Engle on 01-06-2024 AST [Catalytic activity/Vol] 22 U/L Normal 13-39 [facility] Comment on above: Performed By: #### E SR, CBC, CMP, BNP #### [address] Automated basophil %Ordered By: Jenna Engle on 01-06-2024 Basophils/100 WBC (Bld) 0.4 % Normal . [facility] Comment on above: Performed By: #### E SR, CBC, CMP, BNP #### [address] Automated basophil countOrde red By: Jenna Engle on 01-06-2024 Basophils (Bld) [#/Vol] 0.1 10*3/uL Normal 0.0-0.2 [facility] Comment on above: Performed By: #### E SR, CBC, CMP, BNP #### [address] Automated blood monocyte cou ntOrdered By: Jenna Engle on 01-06-2024 Monocytes (Bld) [#/Vol] 1.2 10*3/uL High 0.0-0.8 [facility] Comment on above: Performed By: #### E SR, CBC, CMP, BNP #### [address] Automated eosinophil %Ordere d By: Jenna Engle on 01-06-2024 Eosinophils/100 WBC (Bld) 0.9 % Normal . [facility] Comment on above: Performed By: #### E SR, CBC, CMP, BNP #### [address] Automated eosinophil countOr dered By: Jenna Engle on 01-06-2024 Eosinophils (Bld) [#/Vol] 0.1 10*3/uL Normal 0.0-0.45 [facility] Comment on above: Performed By: #### E SR, CBC, CMP, BNP #### [address] Automated monocyte %Ordered By: Jenna Engle on 01-06-2024 Monocytes/100 WBC (Bld) 8.7 % Normal . [facility] Comment on above: Performed By: #### E SR, CBC, CMP, BNP #### [address] Automated neutrophil %Ordere d By: Jenna Engle on 01-06-2024 Neutrophils/100 WBC (Bld) 59.8 % Normal . [facility] Comment on above: Performed By: #### E SR, CBC, CMP, BNP #### [address] BNP ser/plasOrdered By: Gisel Engle on 01-06-2024 Natriuretic peptide B (Bld) [Mass/Vol] 358.0 pg/mL High 5-100 [facility] Comment on above: Result Comment: PERF ORMED BY: [place] [address] PATHOLOGIST MANGLE CATCHER JORGE MURRELL M.D. Performed By: #### E SR, CBC, CMP, BNP #### [address] Bilirubin.total [Mass/volume ] in Serum or PlasmaOrdered By: Jenna Engle on 01-06-2024 Bilirubin [Mass/Vol] 0.3 mg/dL Normal 0.3-1.0 [facility] Comment on above: Performed By: #### E SR, CBC, CMP, BNP #### [address] Calcium [Mass/volume] in Ser um or PlasmaOrdered By: Jenna Engle on 01-06-2024 Calcium [Mass/Vol] 9.5 mg/dL Normal 8.6-10.3 [facility] Comment on above: Performed By: #### E SR, CBC, CMP, BNP #### [address] Carbon dioxide, total [Moles /volume] in Serum or PlasmaOrdered By: Jenna Engle on 01-06-2024 CO2 [Moles/Vol] 31.7 mmol/L High 21.0-31.0 [facility] Comment on above: Performed By: #### E SR, CBC, CMP, BNP #### [place] [address] [place] Chloride [Moles/volume] in S kaveh or PlasmaOrdered By: Jenna Engle on 01-06-2024 Chloride [Moles/Vol] 108 mmol/L High 98-107 [facility] Comment on above: Performed By: #### E SR, CBC, CMP, BNP #### [address] Complete Blood Count Auto Di ffon 01-06-2024 Mean Corpuscular HGB Conc 31.6 g/dL Low 32.0-35.0 [facility] Comment on above: Performed By: #### E SR, CBC, CMP, BNP #### [facility] [address] [place] [address] NRBC% 0.0 /100{WBC} Normal 0-0.5 [facility] Comment on above: Performed By: #### E SR, CBC, CMP, BNP #### [facility] [address] [place] [address] Comprehensive Metabolic Pane harsha 01-06-2024 Albumin [Mass/Vol] 3.9 g/dL Normal 3.5-5.7 [facility] Comment on above: Performed By: #### E SR, CBC, CMP, BNP #### [address] GFR/1.73 sq M.predicted MDRD (S/P/Bld) [Vol rate/Area] 47.277 mL/min/{1.73_m2} Normal [facility] Comment on above: Performed By: #### E SR, CBC, CMP, BNP #### [address] Creatinine [Mass/volume] in Serum or PlasmaOrdered By: Jenna Engle on 01-06-2024 Creatinine [Mass/Vol] 1.18 mg/dL Normal 0.60-1.20 [facility] Comment on above: Performed By: #### E SR, CBC, CMP, BNP #### [address] ECG 12 Leadon 01-06-2024 [facility] Work Phone: Normal sinus rhythm at 62 bpm MO interval 170 ms QRS duration 80 ms QTc 401 ms. [facility] Work Phone: [facility] Work Phone: Erythrocyte Sedimentation Ra jami 01-06-2024 ESR (Bld) [Velocity] 34 mm/h High 0-29 [facility] Comment on above: Result Comment: PERF ORMED BY: [address] [address] PATHOLOGIST MANGLE CATCHER JORGE MURRELL M.D. Performed By: #### E SR, CBC, CMP, BNP #### [facility] [address] Erythrocyte distribution wid th [Ratio] by Automated countOrdered By: Jenna Engle on 01-06-2024 Erythrocyte distribution width (RBC) [Ratio] 20.0 % High 11.9-15.3 [facility] Comment on above: Performed By: #### E SR, CBC, CMP, BNP #### [facility] [address] Erythrocyte sedimentation ra te by Photometric methodOrdered By: Jenna Engle on 01-06-2024 ESR Photometric method (Bld) [Velocity] 34 mm/hr 0-29 [facility] Erythrocytes [#/volume] in B lood by Automated countOrdered By: Jenna Engle on 01-06-2024 RBC (Bld) [#/Vol] 4.54 10*6/uL Normal 3.60-5.00 [facility] Comment on above: Performed By: #### E SR, CBC, CMP, BNP #### [facility] [address] [place] [address] [place] Glucose [Mass/volume] in Ser um or PlasmaOrdered By: Jenna Engle on 01-06-2024 Glucose [Mass/Vol] 85 mg/dL Normal 70-100 [facility] Comment on above: ADA recommended refe rence rangeRandom Glucose Reference Range is dependent on time and content of last meal. Glucose of more than 200 mg/dL in a nonstressed, ambulatory subject supports the diagnosis of Diabetes Mellitus. Result Comment: [place] om Glucose Reference Range is dependent on time and content of last meal. Glucose of more than 200 mg/dL in a nonstressed, ambulatory subject supports the diagnosis of Diabetes Mellitus. ADA recommended reference range Performed By: #### E SR, CBC, CMP, BNP #### [facility] [address] [place] [address] [place] Hematocrit [Volume Fraction] of Blood by Automated countOrdered By: Jenna Engle on 01-06-2024 Hematocrit (Bld) [Volume fraction] 35.7 % Normal 34.0-46.4 [facility] Comment on above: Performed By: #### E SR, CBC, CMP, BNP #### [facility] [address] Hemoglobin [Mass/volume] in BloodOrdered By: Jenna Engle on 01-06-2024 Hemoglobin (Bld) [Mass/Vol] 11.3 g/dL Low 11.8-15.4 [facility] Comment on above: Performed By: #### E SR, CBC, CMP, BNP #### [facility] [address] [place] [address] Leukocytes [#/volume] correc juma for nucleated erythrocytes in Blood by Automated counOrdered By: Jenna Engle on 01-06-2024 WBC corrected for nucl RBC Auto (Bld) [#/Vol] 14.2 10*3/uL 3.8-11.6 [facility] Leukocytes [#/volume] in Blo od by Automated countOrdered By: Jenna Engle on 01-06-2024 WBC (Bld) [#/Vol] 14.2 10*3/uL High 3.8-11.6 [facility] Comment on above: Performed By: #### E SR, CBC, CMP, BNP #### [facility] [address] [place] [address] Lymphocytes [#/volume] in Bl ood by Automated countOrdered By: Jenna Engle on 01-06-2024 Lymphocytes (Bld) [#/Vol] 4.3 10*3/uL Normal 1.00-4.8 [facility] Comment on above: Performed By: #### E SR, CBC, CMP, BNP #### [facility] [address] [place] [address] [place] Lymphocytes/100 leukocytes i n Blood by Automated countOrdered By: Jenna Engle on 01-06-2024 Lymphocytes/100 WBC (Bld) 30.2 % Normal . [facility] Comment on above: Performed By: #### E SR, CBC, CMP, BNP #### [facility] [address] [place] [address] MCH [Entitic mass] by Automa juma countOrdered By: Jenna Engle on 01-06-2024 MCH (RBC) [Entitic mass] 24.9 pg Normal 24.7-34.3 [facility] Comment on above: Performed By: #### E SR, CBC, CMP, BNP #### [facility] [address] [place] [address] MCHC Auto (RBC) [Mass/Vol]Or dered By: Jenna Engle on 01-06-2024 MCHC (RBC) [Mass/Vol] 31.6 g/dL 32.0-35.0 [facility] MCV [Entitic volume] by Auto mated countOrdered By: Jenna Engle on 01-06-2024 MCV (RBC) [Entitic vol] 78.7 fL Low 80-100 [facility] Comment on above: Performed By: #### E SR, CBC, CMP, BNP #### [facility] [address] [place] [address] Neutrophils [#/volume] in Bl ood by Automated countOrdered By: Jenna Engle on 01-06-2024 Neutrophils (Bld) [#/Vol] 8.5 10*3/uL High 1.8-7.7 [facility] Comment on above: Performed By: #### E SR, CBC, CMP, BNP #### [facility] [address] [place] [address] No Panel InformationOrdered By: Jenna Engle on 01-06-2024 Estimated GFR (CKD-EPI) 47.277 mL/Min [facility] Creatinine Clearance (Chem N/A [facility] Nucleated erythrocytes [Pres ence] in Blood by Automated countOrdered By: Jenna Engle on 01-06-2024 Nucleated RBC Auto Ql (Bld) 0.0 /100{WBC} 0-0.5 [facility] Platelet mean volume [Entiti c volume] in Blood by Automated countOrdered By: Jenna Engle on 03-11-2024 Platelet mean volume (Bld) [Entitic vol] 7.2 fL Normal 6.3-10.7 [facility] Comment on above: Performed By: #### E SR, CBC, CMP, BNP #### [facility] [address] [place] [address] Platelets [#/volume] in Bloo d by Automated countOrdered By: Jenna Engle on 01-06-2024 Platelets (Bld) [#/Vol] 330 10*3/uL Normal 150-450 [facility] Comment on above: Performed By: #### E SR, CBC, CMP, BNP #### [facility] [address] [place] [address] Potassium [Moles/volume] in Serum or PlasmaOrdered By: Jenna Engle on 01-06-2024 Potassium [Moles/Vol] 4.5 mmol/L Normal 3.5-5.1 [facility] Comment on above: Performed By: #### E SR, CBC, CMP, BNP #### [facility] [address] [place] [address] Protein [Mass/volume] in Ser um or PlasmaOrdered By: Jenna Engle on 01-06-2024 Protein [Mass/Vol] 7.1 g/dL Normal 6.4-8.9 [facility] Comment on above: Performed By: #### E SR, CBC, CMP, BNP #### [address] Serum globulin measurement b y calculation (mass/volume)Ordered By: Jenna Engle on 01-06-2024 Globulin (S) [Mass/Vol] 3.2 g/dL [facility] Comment on above: Performed By: #### E SR, CBC, CMP, BNP #### [address] Serum or plasma albumin/glob ulin mass ratioOrdered By: Jenna Engle on 01-06-2024 Albumin/Globulin [Mass ratio] 1.2 {ratio} [facility] Comment on above: Performed By: #### E SR, CBC, CMP, BNP #### [facility] [address] Serum or plasma anion gap de terminationOrdered By: Jenna Engle on 01-06-2024 Anion gap [Moles/Vol] 8.8 mmol/L Normal 6.0-15.0 [facility] Comment on above: Performed By: #### E SR, CBC, CMP, BNP #### [facility] [address] [place] [address] [place] Sodium [Moles/volume] in Ser um or PlasmaOrdered By: Jenna Engle on 01-06-2024 Sodium [Moles/Vol] 144 mmol/L Normal 136-145 [facility] Comment on above: Performed By: #### E SR, CBC, CMP, BNP #### [facility] [address] [place] [address] Urea nitrogen [Mass/volume] in Serum or PlasmaOrdered By: Jenna Engle on 01-06-2024 Urea nitrogen [Mass/Vol] 31 mg/dL High 7-25 [facility] Comment on above: Performed By: #### E SR, CBC, CMP, BNP #### [place] [address] [place] XR chest 2V*on 01-06-2024 XR chest 2V* [facility] [place] [address] XRay Report Signed Patient: Gera Perdue MR#: [id number] : 1945 Acct:[id number] Age/Sex: 78 / F ADM Date: 01/06/24 Loc: XD Room: Type: [facility] Attending Dr: Jenna Engle MD [...] ABNORMALITY. Impression dictated by: Rodriguez Palma Jr., Rosalio01/06/2024 4:08 PM Dictation Location: [place] [address] Transcribed By: [facility] 01/06/241607 Dictated By: Rodriguez Palma Jr, DO 01/06/241607 Signed By: 01/06/24 160 Normal [facility] BASIC METABOLIC PANLon 10-23 Anion gap [Moles/Vol] 9 mmol/L Normal 5-15 [facility] Comment on above: Performed By: #### C BC, BMP, , 2776-10 #### [facility] ([id number]) [address], [address] [place] [address] Calcium [Mass/Vol] 9.1 mg/dL Normal 8.5-10.5 [facility] Comment on above: Performed By: #### C BC, BMP, , 2776-10 #### [facility] ([id number]) [address] [place] [address] Chloride [Moles/Vol] 102 mmol/L Normal 98-109 [facility] Comment on above: Performed By: #### C BC, BMP, , 2776-10 #### [facility] ([id number]) [address], [address] [place] [address] CO2 [Moles/Vol] 26 mmol/L Normal 22-32 [facility] Comment on above: Performed By: #### C BC, BMP, , 2776-10 #### [facility] ([id number]) [address], [address] [place] [address] Creatinine [Mass/Vol] 1.08 mg/dL High 0.40-1.00 [facility] Comment on above: Result Comment: METH OD TRACEABLE TO IDMS STANDARD Performed By: #### C BC, BMP, , 2777-1 #### [facility] ([id number]) [address], [address] [place] [address] GFR/1.73 sq M.predicted among non-blacks MDRD (S/P/Bld) [Vol rate/Area] 53 mL/min/{1.73_m2} Low >59 [facility] Comment on above: Result Comment: Reported eGFR is based on the CKD-EPI 2020 equation that does not use a race coefficient. Performed By: #### Timmy MILLIGAN [facility], , 2776-10 #### [facility] ([id number]) [address], [address] [place] [address] Glucose [Mass/Vol] 96 mg/dL Normal 65-99 [facility] Comment on above: Performed By: #### SANTOSH SALEEM, , 2776-10 #### [facility] ([id number]) [address] [place] [address] Potassium [Moles/Vol] 4.4 mmol/L Normal 3.5-5.0 [facility] Comment on above: Performed By: #### Timmy MILLIGAN [facility], , 2776-10 #### [facility] ([id number]) [address], [address] [place] [address] Sodium [Moles/Vol] 137 mmol/L Normal 134-146 [facility] Comment on above: Performed By: #### SANTOSH SALEEM, , 2776-10 #### [facility] ([id number]) [address] [address] [place] [address] Urea nitrogen [Mass/Vol] 13 mg/dL Normal 5-27 [facility] Comment on above: Performed By: #### SANTOSH SALEEM, , 2776-10 #### [facility] ([id number]) [address], [address] [place] [address] COMPLETE BLOOD COUNTon 10-23 Erythrocyte distribution width (RBC) [Ratio] 21.6 % High 11.5-15.0 [facility] Comment on above: Performed By: #### SANTOSH SALEEM, , 2776-10 #### [facility] ([id number]) [address], [address] [place] [address] Hematocrit (Bld) [Volume fraction] 25.8 % Low 35-47 [facility] Comment on above: Performed By: #### Timmy MILLIGAN, BMP, , 2776-10 #### [facility] ([id number]) [address], [address] [place] [address] Hemoglobin (Bld) [Mass/Vol] 8.5 g/dL Low 11.7-15.5 [facility] Comment on above: Performed By: #### SANTOSH SALEEM, , 2776-10 #### [facility] ([id number]) [address], [address] [place] [address] MCH (RBC) [Entitic mass] 26.1 pg Low 27-34 [facility] Comment on above: Performed By: #### Timmy MILLIGAN, BMP, , 2776-10 #### [facility] ([id number]) [address], [address] [place] [address] MCHC (RBC) [Mass/Vol] 32.9 g/dL Normal 32-36 [facility] Comment on above: Performed By: #### Timmy MILLIGAN, BMP, , 2776-10 #### [facility] ([id number]) [address], [address] [place] [address] MCV (RBC) [Entitic vol] 79 fL Low 80-100 [facility] Comment on above: Performed By: #### Timmy MILLIGAN, BMP, , 2776-10 #### [facility] ([id number]) [address] [place] [address] Platelet mean volume (Bld) [Entitic vol] 6.7 fL Low 7-12 [facility] Comment on above: Performed By: #### SANTOSH SALEEM, , 2776-10 #### [facility] ([id number]) [address], [address] [place] [address] Platelets (Bld) [#/Vol] 551 10*3/uL High 150-450 [facility] Comment on above: Performed By: #### SANTOSH SALEEM, , 2776-10 #### [facility] ([id number]) [address], [address] [place] [address] RBC COUNT 3.26 X10E12/L Low 3.80-5.20 [facility] Comment on above: Performed By: #### SANTOSH SALEEM, , 2776-10 #### [facility] ([id number]) [address], [address] [place] [address] WBC (Bld) [#/Vol] 10.1 10*3/uL Normal 4.0-11.0 [facility] Comment on above: Performed By: #### SANTOSH SALEEM, , 2776-10 #### [facility] ([id number]) [address], [address] [place] [address] Calcium.ionized (Bld) [Mass/ Vol]on 10-23-2023 IONIZED CALCIUM 4.9 mg/dL Normal 4.5-5.3 [facility] Comment on above: Performed By: #### SANTOSH SALEEM, , 2776-10 #### [facility] ([id number]) [address], [address] [place] [address] MAGNESIUMon 10-23-2023 Magnesium [Mass/Vol] 1.7 mg/dL Low 1.8-2.6 [facility] Comment on above: Performed By: #### C BC, BMP, , 2776-10 #### [facility] ([id number]) [address], [address] [place] [address] PHOSPHORUSon 10-23-2023 Phosphate [Mass/Vol] 5.1 mg/dL High 2.4-4.9 [facility] Comment on above: Performed By: #### C BC, BMP, , 2776-10 #### [facility] ([id number]) [address], [address] [place] [address] Rheumatoid factor Nephelomet ry Qn (S)on 10-23-2023 RHEUMATOID FACTOR <10 Normal <20 [facility] Comment on above: Performed By: #### Timmy MILLIGAN, BMP, , 2776-10 #### [facility] ([id number]) [address], [address] [place] [address] BASIC METABOLIC PANLon 10-22 Anion gap [Moles/Vol] 10 mmol/L Normal 5-15 [facility] Comment on above: Performed By: #### Timmy BC, BMP, , 2776-10 #### [facility] ([id number]) [address], [address] [place] [address] Calcium [Mass/Vol] 8.8 mg/dL Normal 8.5-10.5 [facility] Comment on above: Performed By: #### Timmy BC, BMP, , 2776-10 #### [facility] ([id number]) [address], [address] [place] [address] Chloride [Moles/Vol] 104 mmol/L Normal 98-109 [facility] Comment on above: Performed By: #### Timmy BC, BMP, , 2776-10 #### [facility] ([id number]) [address], [address] [place] [address] CO2 [Moles/Vol] 25 mmol/L Normal 22-32 [facility] Comment on above: Performed By: #### SANTOSH SALEEM, , 2776-10 #### [facility] ([id number]) [address], [address] [place] [address] Creatinine [Mass/Vol] 1.02 mg/dL High 0.40-1.00 [facility] Comment on above: Result Comment: METH OD TRACEABLE TO IDMS STANDARD Performed By: #### SANTOSH SALEEM, , 2776-10 #### [facility] ([id number]) [address], [facility] [address] [place] [address] GFR/1.73 sq M.predicted among non-blacks MDRD (S/P/Bld) [Vol rate/Area] 57 mL/min/{1.73_m2} Low >59 [facility] Comment on above: Result Comment: Reported eGFR is based on the CKD-EPI 2020 equation that does not use a race coefficient. Performed By: #### SANTOSH SALEEM, , 2776-10 #### [facility] ([id number]) [address], [address] [place] [address] Glucose [Mass/Vol] 86 mg/dL Normal 65-99 [facility] Comment on above: Performed By: #### SANTOSH SALEEM, , 2776-10 #### [facility] ([id number]) [address] [address] [place] [address] Potassium [Moles/Vol] 4.6 mmol/L Normal 3.5-5.0 [facility] Comment on above: Performed By: #### SANTOSH SALEEM, , 2776-10 #### [facility] ([id number]) [address], [address] [place] [address] Sodium [Moles/Vol] 139 mmol/L Normal 134-146 [facility] Comment on above: Performed By: #### C BC, [facility], , 2776-10 #### [facility] ([id number]) [address], [address] [place] [address] Urea nitrogen [Mass/Vol] 13 mg/dL Normal 5-27 [facility] Comment on above: Performed By: #### Timmy BC, BMP, , 2776-10 #### [facility] ([id number]) [address], [facility] [address] [place] [address] COMPLETE BLOOD COUNTon 10-22 Erythrocyte distribution width (RBC) [Ratio] 22.2 % High 11.5-15.0 [facility] Comment on above: Performed By: #### Timmy MILLIGAN, [facility], , 2776-10 #### [facility] ([id number]) [address], [facility] [address] [place] [address] Hematocrit (Bld) [Volume fraction] 25.7 % Low 35-47 [facility] Comment on above: Performed By: #### Timmy MILLIGAN, [facility], , 2776-10 #### [facility] ([id number]) [address], [facility] [address] [place] [address] Hemoglobin (Bld) [Mass/Vol] 8.2 g/dL Low 11.7-15.5 [facility] Comment on above: Performed By: #### Timmy MILLIGAN, [facility], , 2776-10 #### [facility] ([id number]) [address], [address] [place] [address] MCH (RBC) [Entitic mass] 26.2 pg Low 27-34 [facility] Comment on above: Performed By: #### Timmy BC, BMP, , 2776-10 #### [facility] ([id number]) [address], [address] [place] [address] MCHC (RBC) [Mass/Vol] 32.1 g/dL Normal 32-36 [facility] Comment on above: Performed By: #### SANTOSH SALEEM, , 2776-10 #### [facility] ([id number]) [address], [address] [place] [address] MCV (RBC) [Entitic vol] 82 fL Normal 80-100 [facility] Comment on above: Performed By: #### SANTOSH SALEEM, , 2776-10 #### [facility] ([id number]) [address], [facility] [address] [place] [address] Platelet mean volume (Bld) [Entitic vol] 6.7 fL Low 7-12 [facility] Comment on above: Performed By: #### SANTOSH SALEEM, , 2776-10 #### [facility] ([id number]) [address], [address] [place] [address] Platelets (Bld) [#/Vol] 533 10*3/uL High 150-450 [facility] Comment on above: Performed By: #### Timmy MILLIGAN, SANTOSH, , 2776-10 #### [facility] ([id number]) [address], [address] [place] [address] RBC COUNT 3.14 X10E12/L Low 3.80-5.20 [facility] Comment on above: Performed By: #### Timmy MILLIGAN, SANTOSH, , 2776-10 #### [facility] ([id number]) [address], [address] [place] [address] WBC (Bld) [#/Vol] 9.7 10*3/uL Normal 4.0-11.0 [facility] Comment on above: Performed By: #### Timmy MILLIAGN, SANTOSH, , 2776-10 #### [facility] ([id number]) [address], [address] [place] [address] Calcium.ionized (Bld) [Mass/ Vol]on 10-22-2023 IONIZED CALCIUM 4.9 mg/dL Normal 4.5-5.3 [facility] Comment on above: Performed By: #### SANTOSH SALEEM, , 2776-10 #### [facility] ([id number]) [address], [address] [place] [address] Glucose Glucometer (BldC) [M ass/Vol]on 10-22-2023 Glucose [Mass/Vol] 97 mg/dL Normal 65-99 [facility] MAGNESIUMon 10-22-2023 Magnesium [Mass/Vol] 2.1 mg/dL Normal 1.8-2.6 [facility] Comment on above: Performed By: #### SANTOSH SALEEM, , 2776-10 #### [facility] ([id number]) [address], [address] [place] [address] PHOSPHORUSon 10-22-2023 Phosphate [Mass/Vol] 4.9 mg/dL Normal 2.4-4.9 [facility] Comment on above: Performed By: #### SANTOSH SALEEM, , 2776-10 #### [facility] ([id number]) [address], [address] [place] [address] BASIC METABOLIC PANLon 10-21 Anion gap [Moles/Vol] 7 mmol/L Normal 5-15 [facility] Comment on above: Performed By: #### SANTOSH SALEEM, , 2776-10 ####[facility] ([id number])[address], [address], [place] [address] Calcium [Mass/Vol] 9.0 mg/dL Normal 8.5-10.5 [facility] Comment on above: Performed By: #### SANTOSH SALEEM, , 2776-10 ####[facility] ([id number])[address], [address], [place] [address] Chloride [Moles/Vol] 104 mmol/L Normal 98-109 [facility] Comment on above: Performed By: #### C SRINI, [facility], , 2776-10 ####[facility] ([id number])[address], [address], [place] [address] CO2 [Moles/Vol] 26 mmol/L Normal 22-32 [facility] Comment on above: Performed By: #### C SRINI [facility], , 2776-10 ####[facility] ([id number])[address], [address], [place] [address] Creatinine [Mass/Vol] 1.06 mg/dL High 0.40-1.00 [facility] Comment on above: Result Comment: METH OD TRACEABLE TO IDMS STANDARD Performed By: #### Timmy MILLIGAN [facility], , 2776-10 ####[facility] ([id number])[address] [address] [address] GFR/1.73 sq M.predicted among non-blacks MDRD (S/P/Bld) [Vol rate/Area] 54 mL/min/{1.73_m2} Low >59 [facility] Comment on above: Result Comment: Reported eGFR is based on the CKD-EPI 2020 equation that does not use a race coefficient. Performed By: #### C SRINI [facility], , 2776-10 ####[facility] ([id number])[address] [address] [address], [place] [address] Glucose [Mass/Vol] 88 mg/dL Normal 65-99 [facility] Comment on above: Performed By: #### Timmy MILLIGAN, SANTOSH, , 2776-10 ####[facility] ([id number])[address] [address], [place] [address] Potassium [Moles/Vol] 4.5 mmol/L Normal 3.5-5.0 [facility] Comment on above: Performed By: #### C SRINI, [facility], , 2776-10 ####[facility] ([id number])[address], [address], [place] [address] Sodium [Moles/Vol] 137 mmol/L Normal 134-146 [facility] Comment on above: Performed By: #### C SRINI, [facility], , 2776-10 ####[facility] ([id number])[address], [address], [place] [address] Urea nitrogen [Mass/Vol] 12 mg/dL Normal 5-27 [facility] Comment on above: Performed By: #### Timmy MILLIGAN, [facility], , 2776-10 ####[facility] ([id number])[address], [address], [place] [address] COMPLETE BLOOD COUNTon 10-21 Erythrocyte distribution width (RBC) [Ratio] 22.0 % High 11.5-15.0 [facility] Comment on above: Performed By: #### Timmy MLILIGAN, [facility], , 2776-10 ####[facility] ([id number])[address] [address], [place] [address] Hematocrit (Bld) [Volume fraction] 26.3 % Low 35-47 [facility] Comment on above: Performed By: #### Timmy BC, BMP, , 2776-10 ####[facility] ([id number])[address] [address], [place] [address] Hemoglobin (Bld) [Mass/Vol] 8.5 g/dL Low 11.7-15.5 [facility] Comment on above: Performed By: #### C SRINI, BMP, , 2776-10 ####[facility] ([id number])[address], [address] [place] [address] MCH (RBC) [Entitic mass] 26.2 pg Low 27-34 [facility] Comment on above: Performed By: #### C SRINI, BMP, , 2776-10 ####[facility] ([id number])[address], [address] [place] [address] MCHC (RBC) [Mass/Vol] 32.4 g/dL Normal 32-36 [facility] Comment on above: Performed By: #### C SRIIN, BMP, , 2776-10 ####[facility] ([id number])[address], [address] [place] [address] MCV (RBC) [Entitic vol] 81 fL Normal 80-100 [facility] Comment on above: Performed By: #### Timmy MILLIGAN, BMP, , 2776-10 ####[facility] ([id number])[address], [address], [place] [address] Platelet mean volume (Bld) [Entitic vol] 6.8 fL Low 7-12 [facility] Comment on above: Performed By: #### Timmy MILLIGAN, BMP, , 2776-10 ####[facility] ([id number])[address], [address] [place] [address] Platelets (Bld) [#/Vol] 611 10*3/uL High 150-450 [facility] Comment on above: Performed By: #### Timmy MILLIGAN, BMP, , 2776-10 ####[facility] ([id number])[address], [address] [place] [address] RBC COUNT 3.25 X10E12/L Low 3.80-5.20 [facility] Comment on above: Performed By: #### Timmy MILLIGAN, BMP, , 2776-10 ####[facility] ([id number])[address], [address] [place] [address] WBC (Bld) [#/Vol] 10.0 10*3/uL Normal 4.0-11.0 [facility] Comment on above: Performed By: #### C BC, BMP, 10603-9, 2777-1 ####[facility] ([id number])[address], [address] [place] [address] CRP [Mass/Vol]on 10-21-2023 C REACTIVE PROTEIN 6.5 mg/dL High 0.000-0.7 4 4 [facility] Comment on above: Performed By: #### 3 8230-9 #### [facility] ([id number]) [address], [address] [place] [address] Calcium.ionized (Bld) [Mass/ Vol]on 10-21-2023 IONIZED CALCIUM 4.9 mg/dL Normal 4.5-5.3 [facility] Comment on above: Performed By: #### 3 8230-9 #### [facility] ([id number]) [address], [address] [address] ESR Photometric method (Bld) [Velocity]on 10-21-2023 ESR, ERYTHROCYTE SEDIMENTATION RATE 74 mm/h High 0-30 [facility] Comment on above: Performed By: #### 3 8230-9 #### [facility] ([id number]) [address], [address] [address] Glucose Glucometer (BldC) [M ass/Vol]on 10-21-2023 Glucose [Mass/Vol] 124 mg/dL High 65-99 [facility] Glucose [Mass/Vol] 135 mg/dL High 65-99 [facility] Glucose [Mass/Vol] 126 mg/dL High 65-99 [facility] Glucose [Mass/Vol] 91 mg/dL Normal 65-99 [facility] MAGNESIUMon 10-21-2023 Magnesium [Mass/Vol] 2.6 mg/dL Normal 1.8-2.6 [facility] Comment on above: Performed By: #### 3 8230-9 #### [facility] ([id number]) [address], [address] [place] [address] Magnesium [Mass/Vol] 1.9 mg/dL Normal 1.8-2.6 [facility] Comment on above: Performed By: #### C SANTOSH MILLIGAN, , 2777-1 ####[facility] ([id number])[address], [address], [place] [address] PHOSPHORUSon 10-21-2023 Phosphate [Mass/Vol] 4.3 mg/dL Normal 2.4-4.9 [facility] Comment on above: Performed By: #### 3 8230-9 #### [facility] ([id number]) [address], [address] [place] [address] XR WRIST LT MIN 3 VWSon - [...] Morin MD on 10/21/2023 10:28 AM Normal [facility] BASIC METABOLIC PANLon 10-20 Anion gap [Moles/Vol] 7 mmol/L Normal 5-15 [facility] Comment on above: Performed By: #### C SRINI, BMP, , 2777-1 ####[facility] ([id number])[address], [address], [place] [address] Calcium [Mass/Vol] 8.6 mg/dL Normal 8.5-10.5 [facility] Comment on above: Performed By: #### C SRINI, SANTOSH, , 2776-10 ####[facility] ([id number])[address], [address], [place] [address] Chloride [Moles/Vol] 107 mmol/L Normal 98-109 [facility] Comment on above: Performed By: #### Timmy MILLIGAN, SANTOSH, , 2776-10 ####[facility] ([id number])[address], [address], [place] [address] CO2 [Moles/Vol] 25 mmol/L Normal 22-32 [facility] Comment on above: Performed By: #### SANTOSH SALEEM, , 2776-10 ####[facility] ([id number])[address], [facility] [address], [place] [address] Creatinine [Mass/Vol] 1.16 mg/dL High 0.40-1.00 [facility] Comment on above: Result Comment: METH OD TRACEABLE TO IDMS STANDARD Performed By: #### C SANTOSH MILLIGAN, , 2776-10 ####[facility] ([id number])[address] [address] GFR/1.73 sq M.predicted among non-blacks MDRD (S/P/Bld) [Vol rate/Area] 49 mL/min/{1.73_m2} Low >59 [facility] Comment on above: Result Comment: Reported eGFR is based on the CKD-EPI 2020 equation that does not use a race coefficient. Performed By: #### C SRINI, SANTOSH, , 2776-10 ####[facility] ([id number])[address] [address], [place] [address] Glucose [Mass/Vol] 80 mg/dL Normal 65-99 [facility] Comment on above: Performed By: #### Timmy MILLIGAN, SANTOSH, , 2777-1 ####[facility] ([id number])[address], [address] [place] [address] Potassium [Moles/Vol] 4.6 mmol/L Normal 3.5-5.0 [facility] Comment on above: Performed By: #### C SRINI BMP, , 2776-10 ####[facility] ([id number])[address], [address] [place] [address] Sodium [Moles/Vol] 139 mmol/L Normal 134-146 [facility] Comment on above: Performed By: #### Timmy MILLIGAN, BMP, , 2776-10 ####[facility] ([id number])[address] [address], [place] [address] Urea nitrogen [Mass/Vol] 12 mg/dL Normal 5-27 [facility] Comment on above: Performed By: #### Timmy MILLIGAN BMP, , 2776-10 ####[facility] ([id number])[address] [address], [place] [address] COMPLETE BLOOD COUNTon 10-20 Erythrocyte distribution width (RBC) [Ratio] 22.5 % High 11.5-15.0 [facility] Comment on above: Performed By: #### SANTOSH SALEEM, , 2776-10 ####[facility] ([id number])[address] [address], [place] [address] Hematocrit (Bld) [Volume fraction] 24.8 % Low 35-47 [facility] Comment on above: Performed By: #### Timmy MILLIGAN, BMP, , 2776-10 ####[facility] ([id number])[address] [address] [place] [address] Hemoglobin (Bld) [Mass/Vol] 8.1 g/dL Low 11.7-15.5 [facility] Comment on above: Performed By: #### Timmy MILLIGAN BMP, , 2776-10 ####[facility] ([id number])[address] [address] MCH (RBC) [Entitic mass] 26.2 pg Low 27-34 [facility] Comment on above: Performed By: #### Timmy MILLIGAN, [facility], , 2776-10 ####[facility] ([id number])[address] [place] [address] MCHC (RBC) [Mass/Vol] 32.4 g/dL Normal 32-36 [facility] Comment on above: Performed By: #### Timmy MILLIGAN, SANTOSH, , 2776-10 ####[facility] ([id number])[address] [address] [place] [address] MCV (RBC) [Entitic vol] 81 fL Normal 80-100 [facility] Comment on above: Performed By: #### SANTOSH SALEEM, , 2776-10 ####[facility] ([id number])[address] [address] [place] [address] Platelet mean volume (Bld) [Entitic vol] 6.7 fL Low 7-12 [facility] Comment on above: Performed By: #### SANTOSH SALEEM, , 2776-10 ####[facility] ([id number])[address] [address] [place] [address] Platelets (Bld) [#/Vol] 554 10*3/uL High 150-450 [facility] Comment on above: Performed By: #### Timmy MILLIGAN, BMP, , 2776-10 ####[facility] ([id number])[address] [address], [place] [address] RBC COUNT 3.08 X10E12/L Low 3.80-5.20 [facility] Comment on above: Performed By: #### SANTOSH SALEEM, , 2776-10 ####[facility] ([id number])[address], [address] [place] [address] WBC (Bld) [#/Vol] 9.3 10*3/uL Normal 4.0-11.0 [facility] Comment on above: Performed By: #### SANTOSH SALEEM, , 2776-10 ####[facility] ([id number])[address], [address] [place] [address] Glucose Glucometer (BldC) [M ass/Vol]on 10-20-2023 Glucose [Mass/Vol] 108 mg/dL High 65-99 [facility] Glucose [Mass/Vol] 115 mg/dL High 65-99 [facility] Glucose [Mass/Vol] 140 mg/dL High 65-99 [facility] Glucose [Mass/Vol] 94 mg/dL Normal 65-99 [facility] MAGNESIUMon 10-20-2023 Magnesium [Mass/Vol] 1.7 mg/dL Low 1.8-2.6 [facility] Comment on above: Performed By: #### SANTOSH SALEEM, , 2776-10 ####[facility] ([id number])[address], [address], [place] [address] PHOSPHORUSon 10-20-2023 Phosphate [Mass/Vol] 4.2 mg/dL Normal 2.4-4.9 [facility] Comment on above: Performed By: #### SANTOSH SALEEM, , 2776-10 ####[facility] ([id number])[address], [address] [place] [address] BASIC METABOLIC PANLon 10-19 Anion gap [Moles/Vol] 8 mmol/L Normal 5-15 [facility] Comment on above: Performed By: #### SANTOSH SALEEM, , 2776-10 ####[facility] ([id number])[address] [address] [place] [address] Calcium [Mass/Vol] 8.3 mg/dL Low 8.5-10.5 [facility] Comment on above: Performed By: #### C SRINI, SANTOSH, , 2776-10 ####[facility] ([id number])[address], [address], [place] [address] Chloride [Moles/Vol] 107 mmol/L Normal 98-109 [facility] Comment on above: Performed By: #### SANTOSH SALEEM, , 2776-10 ####[facility] ([id number])[address] [address], [place] [address] CO2 [Moles/Vol] 24 mmol/L Normal 22-32 [facility] Comment on above: Performed By: #### SANTOSH SALEEM, , 2776-10 ####[facility] ([id number])[address] [address] Creatinine [Mass/Vol] 1.05 mg/dL High 0.40-1.00 [facility] Comment on above: Result Comment: METH OD TRACEABLE TO IDMS STANDARD Performed By: #### Timmy MILLIGAN, SANTOSH, , 2776-10 ####[facility] ([id number])[address] [address] GFR/1.73 sq M.predicted among non-blacks MDRD (S/P/Bld) [Vol rate/Area] 55 mL/min/{1.73_m2} Low >59 [facility] Comment on above: Result Comment: Reported eGFR is based on the CKD-EPI 2020 equation that does not use a race coefficient. Performed By: #### Timmy MILLIGAN, BMP, , 2776-10 ####[facility] ([id number])[address] [address] [address] Glucose [Mass/Vol] 82 mg/dL Normal 65-99 [facility] Comment on above: Performed By: #### Timmy MILLIGAN, SANTOSH, , 2776-10 ####[facility] ([id number])[address], [place] [address] Potassium [Moles/Vol] 4.3 mmol/L Normal 3.5-5.0 [facility] Comment on above: Performed By: #### C SRINI, BMP, , 2776-10 ####[facility] ([id number])[address], [address] [place] [address] Sodium [Moles/Vol] 139 mmol/L Normal 134-146 [facility] Comment on above: Performed By: #### Timmy MILLIGAN, SANTOSH, , 2776-10 ####[facility] ([id number])[address], [address], [place] [address] Urea nitrogen [Mass/Vol] 10 mg/dL Normal 5-27 [facility] Comment on above: Performed By: #### Timmy MILLIGAN, SANTOSH, , 2776-10 ####[facility] ([id number])[address] [address], [place] [address] COMPLETE BLOOD COUNTon 10-19 Erythrocyte distribution width (RBC) [Ratio] 22.7 % High 11.5-15.0 [facility] Comment on above: Performed By: #### Timmy MILLIGAN, BMP, , 2776-10 ####[facility] ([id number])[address] [address], [place] [address] Hematocrit (Bld) [Volume fraction] 24.4 % Low 35-47 [facility] Comment on above: Performed By: #### Timmy MILLIGAN, BMP, , 2776-10 ####[facility] ([id number])[address], [address], [place] [address] Hemoglobin (Bld) [Mass/Vol] 7.8 g/dL Low 11.7-15.5 [facility] Comment on above: Performed By: #### Timmy MILLIGAN, SANTOSH, , 2776-10 ####[facility] ([id number])[address], [address], [place] [address] MCH (RBC) [Entitic mass] 25.9 pg Low 27-34 [facility] Comment on above: Performed By: #### Timmy MILLIGAN, SANTOSH, , 2776-10 ####[facility] ([id number])[address] [address], [place] [address] MCHC (RBC) [Mass/Vol] 31.8 g/dL Low 32-36 [facility] Comment on above: Performed By: #### SANTOSH SALEEM, , 2776-10 ####[facility] ([id number])[address] [address] [place] [address] MCV (RBC) [Entitic vol] 82 fL Normal 80-100 [facility] Comment on above: Performed By: #### SANTOSH SALEEM, , 2776-10 ####[facility] ([id number])[address] [address] [place] [address], [place] [address] Platelet mean volume (Bld) [Entitic vol] 6.6 fL Low 7-12 [facility] Comment on above: Performed By: #### Timmy MILLIGAN, SANTOSH, , 2776-10 ####[facility] ([id number])[address] [facility] [place] [address] Platelets (Bld) [#/Vol] 533 10*3/uL High 150-450 [facility] Comment on above: Performed By: #### Timmy MILLIGAN, BMP, , 2776-10 ####[facility] ([id number])[address], [address], [place] [address] RBC COUNT 2.99 X10E12/L Low 3.80-5.20 [facility] Comment on above: Performed By: #### C SANTOSH MILLIGAN, , 2776-10 ####[facility] ([id number])[address], [address] [place] [address] WBC (Bld) [#/Vol] 9.9 10*3/uL Normal 4.0-11.0 [facility] Comment on above: Performed By: #### C SANTOSH MILLIGAN, , 2776-10 ####[facility] ([id number])[address], [address] [place] [address] Calcium.ionized (Bld) [Mass/ Vol]on 10-19-2023 IONIZED CALCIUM 4.9 mg/dL Normal 4.5-5.3 [facility] Comment on above: Performed By: #### 3 8230-9 ####[facility] ([id number])[address], [address] [place] [address] Glucose Glucometer (BldC) [M ass/Vol]on 10-19-2023 Glucose [Mass/Vol] 102 mg/dL High 65-99 [facility] Glucose [Mass/Vol] 117 mg/dL High 65-99 [facility] Glucose [Mass/Vol] 103 mg/dL High 65-99 [facility] MAGNESIUMon 10-19-2023 Magnesium [Mass/Vol] 2.0 mg/dL Normal 1.8-2.6 [facility] Comment on above: Performed By: #### C SANTOSH MILLIGAN, , 2776-10 ####[facility] ([id number])[address], [address], [place] [address] PHOSPHORUSon 10-19-2023 Phosphate [Mass/Vol] 4.3 mg/dL Normal 2.4-4.9 [facility] Comment on above: Performed By: #### C BC, BMP, , 2776-10 ####[facility] ([id number])[address], [address], [place] [address] BASIC METABOLIC PANLon 10-18 Anion gap [Moles/Vol] 10 mmol/L Normal 5-15 [facility] Comment on above: Performed By: #### C BC, BMP, , 2776-10, 3083-10 ####[facility] ([id number])[address], [address], [place] [address] Calcium [Mass/Vol] 8.5 mg/dL Normal 8.5-10.5 [facility] Comment on above: Performed By: #### Timmy BC, BMP, , 2776-10, 3083- ####[facility] ([id number])[address], [address], [place] [address] Chloride [Moles/Vol] 107 mmol/L Normal 98-109 [facility] Comment on above: Performed By: #### Timmy BC, BMP, , 2776-10, 3083-10 ####[facility] ([id number])[address], [address], [place] [address] CO2 [Moles/Vol] 23 mmol/L Normal 22-32 [facility] Comment on above: Performed By: #### Timmy BC, BMP, , 2776-10, 3083- ####[facility] ([id number])[address], [address], [place] [address] Creatinine [Mass/Vol] 1.17 mg/dL High 0.40-1.00 [facility] Comment on above: Result Comment: METH OD TRACEABLE TO IDMS STANDARD Performed By: #### C BC, BMP, , 2776-10, 3083-10 ####[facility] ([id number])[address] [address] GFR/1.73 sq M.predicted among non-blacks MDRD (S/P/Bld) [Vol rate/Area] 48 mL/min/{1.73_m2} Low >59 [facility] Comment on above: Result Comment: Reported eGFR is based on the CKD-EPI 2020 equation that does not use a race coefficient. Performed By: #### Timmy BC, BMP, , 2776-10, 3083-10 ####[facility] ([id number])[address] [address] Glucose [Mass/Vol] 82 mg/dL Normal 65-99 [facility] Comment on above: Performed By: #### Timmy MILLIGAN, BMP, , 2776-10, 3083-10 ####[facility] ([id number])[address] [address] Potassium [Moles/Vol] 4.0 mmol/L Normal 3.5-5.0 [facility] Comment on above: Performed By: #### Timmy MILLIGAN, BMP, , 2776-10, 3083-10 ####[facility] ([id number])[address] [address] Sodium [Moles/Vol] 140 mmol/L Normal 134-146 [facility] Comment on above: Performed By: #### Timmy BC, BMP, , 2776-10, 3083-10 ####[facility] ([id number])[address] [address] Urea nitrogen [Mass/Vol] 11 mg/dL Normal 5-27 [facility] Comment on above: Performed By: #### Timmy BC, BMP, , 2776-10, 3083-10 ####[facility] ([id number])[address], [address], [place] [address] COMPLETE BLOOD COUNTon 10-18 Erythrocyte distribution width (RBC) [Ratio] 21.2 % High 11.5-15.0 [facility] Comment on above: Performed By: #### C BC, BMP, , 2776-10, 3083- ####[facility] ([id number])[address], [address], [place] [address] Hematocrit (Bld) [Volume fraction] 24.6 % Low 35-47 [facility] Comment on above: Performed By: #### C BC, BMP, , 2776-10, 3083- ####[facility] ([id number])[address], [address], [place] [address] Hemoglobin (Bld) [Mass/Vol] 7.9 g/dL Low 11.7-15.5 [facility] Comment on above: Performed By: #### C SRINI, BMP, , 2776-10, 3083- ####[facility] ([id number])[address], [address], [place] [address] MCH (RBC) [Entitic mass] 26.2 pg Low 27-34 [facility] Comment on above: Performed By: #### Timmy BC, BMP, , 2776-10, 3083- ####[facility] ([id number])[address], [address], [place] [address] MCHC (RBC) [Mass/Vol] 32.2 g/dL Normal 32-36 [facility] Comment on above: Performed By: #### C BC, BMP, , 2776-10, 3083-1 ####[facility] ([id number])[address], [address] [place] [address] MCV (RBC) [Entitic vol] 81 fL Normal 80-100 [facility] Comment on above: Performed By: #### C SRINI, BMP, , 2776-10, 3083-10 ####[facility] ([id number])[address], [address] [place] [address] Platelet mean volume (Bld) [Entitic vol] 6.5 fL Low 7-12 [facility] Comment on above: Performed By: #### Timmy MILLIGAN, BMP, , 2776-10, 3083- ####[facility] ([id number])[address] [address] Platelets (Bld) [#/Vol] 522 10*3/uL High 150-450 [facility] Comment on above: Performed By: #### Timmy MILLIGAN, BMP, , 2776-10, 3083- ####[facility] ([id number])[address] [address] RBC COUNT 3.03 X10E12/L Low 3.80-5.20 [facility] Comment on above: Performed By: #### Timmy MILLIGAN, BMP, , 2776-10, 3083-10 ####[facility] ([id number])[address] [address] WBC (Bld) [#/Vol] 9.3 10*3/uL Normal 4.0-11.0 [facility] Comment on above: Performed By: #### Timmy MILLIGAN, BMP, , 2776-10, 3083- ####[facility] ([id number])[address] [address] Calcium.ionized (Bld) [Mass/ Vol]on 10-18-2023 IONIZED CALCIUM 4.9 mg/dL Normal 4.5-5.3 [facility] Comment on above: Performed By: #### 3 8230-9 ####[facility] ([id number])[address], [place] [address] Glucose Glucometer (BldC) [M ass/Vol]on 10-18-2023 Glucose [Mass/Vol] 108 mg/dL High 65-99 [facility] Glucose [Mass/Vol] 134 mg/dL High 65-99 [facility] Glucose [Mass/Vol] 127 mg/dL High 65-99 [facility] Glucose [Mass/Vol] 102 mg/dL High 65-99 [facility] MAGNESIUMon 10-18-2023 Magnesium [Mass/Vol] 1.7 mg/dL Low 1.8-2.6 [facility] Comment on above: Performed By: #### C BC, BMP, 64625-0, 2777-1, 3084-1 ####[facility] ([id number])[address], [address] [place] [address] MR CERVICAL SPINE WO CONTon 10-18-2023 MR [...] William MD on 10/18/2023 2:39 AM Normal [facility] MR LUMBAR SPINE WO CONTon MR LUMBAR [...] William MD on 10/18/2023 3:37 AM Normal [facility] MR THORACIC SPINE WO CONTon 10-18-2023 MR [...] William MD on 10/18/2023 3:25 AM Normal [facility] PHOSPHORUSon 10-18-2023 Phosphate [Mass/Vol] 4.1 mg/dL Normal 2.4-4.9 [facility] Comment on above: Performed By: #### C SRINI, BMP, 89991-7, 2777-1, 3084-1 ####[facility] ([id number])[address] [address] URIC ACIDon 10-18-2023 Urate [Mass/Vol] 4.7 mg/dL Normal 2.6-7.2 [facility] Comment on above: Performed By: #### C SRINI, BMP, 52356-6, 2777-1, 3084-1 ####[facility] ([id number])[address], [address] [place] [address] XR WRIST RT 2 VWSon 10-18-20 23 [...] Rod MD on 10/18/2023 2:24 PM Normal [facility] BASIC METABOLIC PANLon 10-17 Anion gap [Moles/Vol] 8 mmol/L Normal 5-15 [facility] Comment on above: Performed By: #### 1 7928-3 #### [facility] ([id number]) [address] [address] [place] [address] Calcium [Mass/Vol] 8.5 mg/dL Normal 8.5-10.5 [facility] Comment on above: Performed By: #### 1 7928-3 #### [facility] ([id number]) [address], [address] [place] [address] Chloride [Moles/Vol] 105 mmol/L Normal 98-109 [facility] Comment on above: Performed By: #### 1 7928-3 #### [facility] ([id number]) [address], [address] [place] [address] CO2 [Moles/Vol] 24 mmol/L Normal 22-32 [facility] Comment on above: Performed By: #### 1 7928-3 #### [facility] ([id number]) [address], [address] [place] [address] Creatinine [Mass/Vol] 1.03 mg/dL High 0.40-1.00 [facility] Comment on above: Result Comment: METH OD TRACEABLE TO IDMS STANDARD Performed By: #### 1 7928-3 #### [facility] ([id number]) [address] [address] [place] [address] GFR/1.73 sq M.predicted among non-blacks MDRD (S/P/Bld) [Vol rate/Area] 56 mL/min/{1.73_m2} Low >59 [facility] Comment on above: Result Comment: Reported eGFR is based on the CKD-EPI 2020 equation that does not use a race coefficient. Performed By: #### 1 7928-3 #### [facility] ([id number]) [address], [address] [place] [address] Glucose [Mass/Vol] 88 mg/dL Normal 65-99 [facility] Comment on above: Performed By: #### 1 7928-3 #### [facility] ([id number]) [address], [address] [place] [address] Potassium [Moles/Vol] 4.2 mmol/L Normal 3.5-5.0 [facility] Comment on above: Performed By: #### 1 7928-3 #### [facility] ([id number]) [address], [address] [place] [address] Sodium [Moles/Vol] 137 mmol/L Normal 134-146 [facility] Comment on above: Performed By: #### 1 7928-3 #### [facility] ([id number]) [address], [address] [place] [address] Urea nitrogen [Mass/Vol] 13 mg/dL Normal 5-27 [facility] Comment on above: Performed By: #### 1 7928-3 #### [facility] ([id number]) [address], [address] [place] [address] COMPLETE BLOOD COUNTon 10-17 Erythrocyte distribution width (RBC) [Ratio] 21.4 % High 11.5-15.0 [facility] Comment on above: Performed By: #### 1 7928-3 #### [facility] ([id number]) [address], [address] [place] [address] Hematocrit (Bld) [Volume fraction] 25.0 % Low 35-47 [facility] Comment on above: Performed By: #### 1 7928-3 #### [facility] ([id number]) [address], [address] [place] [address] Hemoglobin (Bld) [Mass/Vol] 7.9 g/dL Low 11.7-15.5 [facility] Comment on above: Performed By: #### 1 7928-3 #### [facility] ([id number]) [address], [address] [place] [address] MCH (RBC) [Entitic mass] 25.4 pg Low 27-34 [facility] Comment on above: Performed By: #### 1 7928-3 #### [facility] ([id number]) [address], [address] [place] [address] MCHC (RBC) [Mass/Vol] 31.4 g/dL Low 32-36 [facility] Comment on above: Performed By: #### 1 7928-3 #### [facility] ([id number]) [address], [address] [place] [address] MCV (RBC) [Entitic vol] 81 fL Normal 80-100 [facility] Comment on above: Performed By: #### 1 7928-3 #### [facility] ([id number]) [address], [address] [place] [address] Platelet mean volume (Bld) [Entitic vol] 6.6 fL Low 7-12 [facility] Comment on above: Performed By: #### 1 7928-3 #### [facility] ([id number]) [address], [address] [place] [address] Platelets (Bld) [#/Vol] 519 10*3/uL High 150-450 [facility] Comment on above: Performed By: #### 1 7928-3 #### [facility] ([id number]) [address], [address] [place] [address] RBC COUNT 3.09 X10E12/L Low 3.80-5.20 [facility] Comment on above: Performed By: #### 1 7928-3 #### [facility] ([id number]) [address], [address] [place] [address] WBC (Bld) [#/Vol] 10.7 10*3/uL Normal 4.0-11.0 [facility] Comment on above: Performed By: #### 1 7928-3 #### [facility] ([id number]) [address] [place] [address] Calcium.ionized (Bld) [Mass/ Vol]on 10-17-2023 IONIZED CALCIUM 4.8 mg/dL Normal 4.5-5.3 [facility] Comment on above: Performed By: #### 1 7928-3 #### [facility] ([id number]) [address], [address] [place] [address] Glucose Glucometer (BldC) [M ass/Vol]on 10-17-2023 Glucose [Mass/Vol] 106 mg/dL High 65-99 [facility] Glucose [Mass/Vol] 96 mg/dL Normal 65-99 [facility] Glucose [Mass/Vol] 123 mg/dL High 65-99 [facility] Glucose [Mass/Vol] 88 mg/dL Normal 65-99 [facility] MAGNESIUMon 10-17-2023 Magnesium [Mass/Vol] 2.1 mg/dL Normal 1.8-2.6 [facility] Comment on above: Performed By: #### 1 7928-3 #### [facility] ([id number]) [address] [place] [address] PHOSPHORUSon 10-17-2023 Phosphate [Mass/Vol] 3.8 mg/dL Normal 2.4-4.9 [facility] Comment on above: Result Comment: SPEC IMEN HEMOLYZED, RESULTS INCREASED SLIGHTLY HEMOLYZED Performed By: #### 1 7928-3 #### [facility] ([id number]) [address] [place] [address] BASIC METABOLIC PANLon 10-16 Anion gap [Moles/Vol] 10 mmol/L Normal 5-15 [facility] Comment on above: Performed By: #### E LEC #### [facility] ([id number]) [address], [address] [place] [address] Calcium [Mass/Vol] 9.0 mg/dL Normal 8.5-10.5 [facility] Comment on above: Performed By: #### E LEC #### [facility] ([id number]) [address], [address] [place] [address] Chloride [Moles/Vol] 106 mmol/L Normal 98-109 [facility] Comment on above: Performed By: #### E LEC #### [facility] ([id number]) [address], [address] [place] [address] CO2 [Moles/Vol] 22 mmol/L Normal 22-32 [facility] Comment on above: Performed By: #### E LEC #### [facility] ([id number]) [address], [address] [place] [address] Creatinine [Mass/Vol] 1.03 mg/dL High 0.40-1.00 [facility] Comment on above: Result Comment: METH OD TRACEABLE TO IDMS STANDARD Performed By: #### E LEC #### [facility] ([id number]) [address], [address] [place] [address] GFR/1.73 sq M.predicted among non-blacks MDRD (S/P/Bld) [Vol rate/Area] 56 mL/min/{1.73_m2} Low >59 [facility] Comment on above: Result Comment: Reported eGFR is based on the CKD-EPI 2020 equation that does not use a race coefficient. Performed By: #### E LEC #### [facility] ([id number]) [address], [address] [place] [address] Glucose [Mass/Vol] 87 mg/dL Normal 65-99 [facility] Comment on above: Performed By: #### E LEC #### [facility] ([id number]) [address] [place] [address] Potassium [Moles/Vol] 4.4 mmol/L Normal 3.5-5.0 [facility] Comment on above: Performed By: #### E LEC #### [facility] ([id number]) [address] [place] [address] Sodium [Moles/Vol] 138 mmol/L Normal 134-146 [facility] Comment on above: Performed By: #### E LEC #### [facility] ([id number]) [address], [address] [place] [address] Urea nitrogen [Mass/Vol] 13 mg/dL Normal 5-27 [facility] Comment on above: Performed By: #### E LEC #### [facility] ([id number]) [address] [place] [address] CK [Catalytic activity/Vol]o n 10-16-2023 CPK 35 U/L Normal 24-170 [facility] Comment on above: Performed By: #### 1 7928-3 #### [facility] ([id number]) [address] [place] [address] COMPLETE BLOOD COUNTon 10-16 Erythrocyte distribution width (RBC) [Ratio] 20.1 % High 11.5-15.0 [facility] Comment on above: Performed By: #### E LEC #### [facility] ([id number]) [address] [place] [address] Hematocrit (Bld) [Volume fraction] 26.5 % Low 35-47 [facility] Comment on above: Performed By: #### E LEC #### [facility] ([id number]) [address], [address] [place] [address] Hemoglobin (Bld) [Mass/Vol] 8.5 g/dL Low 11.7-15.5 [facility] Comment on above: Performed By: #### E LEC #### [facility] ([id number]) [address] [place] [address] MCH (RBC) [Entitic mass] 25.9 pg Low 27-34 [facility] Comment on above: Performed By: #### E LEC #### [facility] ([id number]) [address], [address] [place] [address] MCHC (RBC) [Mass/Vol] 32.1 g/dL Normal 32-36 [facility] Comment on above: Performed By: #### E LEC #### [facility] ([id number]) [address] [place] [address] MCV (RBC) [Entitic vol] 81 fL Normal 80-100 [facility] Comment on above: Performed By: #### E LEC #### [facility] ([id number]) [address] [place] [address] Platelet mean volume (Bld) [Entitic vol] 6.8 fL Low 7-12 [facility] Comment on above: Performed By: #### E LEC #### [facility] ([id number]) [address], [address] [place] [address] Platelets (Bld) [#/Vol] 633 10*3/uL High 150-450 [facility] Comment on above: Performed By: #### E LEC #### [facility] ([id number]) [address], [address] [place] [address] RBC COUNT 3.28 X10E12/L Low 3.80-5.20 [facility] Comment on above: Performed By: #### E LEC #### [facility] ([id number]) [address], [address] [place] [address] WBC (Bld) [#/Vol] 16.2 10*3/uL High 4.0-11.0 [facility] Comment on above: Performed By: #### E LEC #### [facility] ([id number]) [address], [address] [place] [address] Calcium.ionized (Bld) [Mass/ Vol]on 10-16-2023 IONIZED CALCIUM 5.0 mg/dL Normal 4.5-5.3 [facility] Comment on above: Performed By: #### E LEC #### [facility] ([id number]) [address], [address] [place] [address] Glucose Glucometer (BldC) [M ass/Vol]on 10-16-2023 Glucose [Mass/Vol] 119 mg/dL High 65-99 [facility] Glucose [Mass/Vol] 128 mg/dL High 65-99 [facility] Glucose [Mass/Vol] 125 mg/dL High 65-99 [facility] Glucose [Mass/Vol] 88 mg/dL Normal 65-99 [facility] LIVER PANELon 10-16-2023 Albumin [Mass/Vol] 2.6 g/dL Low 3.2-5.3 [facility] Comment on above: Performed By: #### 1 7928-3 #### [facility] ([id number]) [address], [address] [place] [address] ALP [Catalytic activity/Vol] 104 U/L Normal 39-130 [facility] Comment on above: Performed By: #### 1 7928-3 #### [facility] ([id number]) [address], [address] [place] [address] ALT [Catalytic activity/Vol] 6 U/L Normal 0-31 [facility] Comment on above: Performed By: #### 1 7928-3 #### [facility] ([id number]) [address], [address] [place] [address] AST [Catalytic activity/Vol] 16 U/L Normal 0-41 [facility] Comment on above: Performed By: #### 1 7928-3 #### [facility] ([id number]) [address], [address] [place] [address] Bilirubin [Mass/Vol] 0.3 mg/dL Normal 0.3-1.2 [facility] Comment on above: Performed By: #### 1 7928-3 #### [facility] ([id number]) [address], [address] [place] [address] Bilirubin.direct [Mass/Vol] 0.1 mg/dL Normal 0.0-0.4 [facility] Comment on above: Performed By: #### 1 7928-3 #### [facility] ([id number]) [address], [address] [place] [address] Protein [Mass/Vol] 6.9 g/dL Normal 6.0-8.0 [facility] Comment on above: Performed By: #### 1 7928-3 #### [facility] ([id number]) [address], [address] [place] [address] MAGNESIUMon 10-16-2023 Magnesium [Mass/Vol] 2.9 mg/dL High 1.8-2.6 [facility] Comment on above: Performed By: #### E LEC #### [facility] ([id number]) [address], [address] [place] [address] PHOSPHORUSon 10-16-2023 Phosphate [Mass/Vol] 4.3 mg/dL Normal 2.4-4.9 [facility] Comment on above: Performed By: #### 1 7928-3 #### [facility] ([id number]) [address], [address] [place] [address] BASIC METABOLIC PANLon 10-15 Anion gap [Moles/Vol] 9 mmol/L Normal 5-15 [facility] Comment on above: Performed By: #### C SRINI, BMP, , 2776-10 #### [facility] ([id number]) [address], [address] [place] [address] Calcium [Mass/Vol] 9.4 mg/dL Normal 8.5-10.5 [facility] Comment on above: Performed By: #### Timmy MILLIGAN, BMP, , 2776-10 #### [facility] ([id number]) [address], [address] [place] [address] Chloride [Moles/Vol] 103 mmol/L Normal 98-109 [facility] Comment on above: Performed By: #### Timmy MILLIGAN, BMP, , 2776-10 #### [facility] ([id number]) [address], [address] [place] [address] CO2 [Moles/Vol] 23 mmol/L Normal 22-32 [facility] Comment on above: Performed By: #### Timmy MILLIGAN, BMP, , 2776-10 #### [facility] ([id number]) [address], [address] [place] [address] Creatinine [Mass/Vol] 0.94 mg/dL Normal 0.40-1.00 [facility] Comment on above: Result Comment: METH OD TRACEABLE TO IDMS STANDARD Performed By: #### C SRINI, BMP, , 2776-10 #### [facility] ([id number]) [address], [address] [place] [address] GFR/1.73 sq M.predicted among non-blacks MDRD (S/P/Bld) [Vol rate/Area] 62 mL/min/{1.73_m2} Normal >59 [facility] Comment on above: Result Comment: Reported eGFR is based on the CKD-EPI 2020 equation that does not use a race coefficient. Performed By: #### C SANTOSH MILLIGAN, , 2776-10 #### [facility] ([id number]) [address], [address] [place] [address] Glucose [Mass/Vol] 89 mg/dL Normal 65-99 [facility] Comment on above: Performed By: #### C SANTOSH MILLIGAN, , 2776-10 #### [facility] ([id number]) [address], [address] [place] [address] Potassium [Moles/Vol] 4.2 mmol/L Normal 3.5-5.0 [facility] Comment on above: Performed By: #### SANTOSH SALEEM, , 2776-10 #### [facility] ([id number]) [address], [address] [place] [address] Sodium [Moles/Vol] 135 mmol/L Normal 134-146 [facility] Comment on above: Performed By: #### SANTOSH SALEEM, , 2776-10 #### [facility] ([id number]) [address], [address] [place] [address] Urea nitrogen [Mass/Vol] 13 mg/dL Normal 5-27 [facility] Comment on above: Performed By: #### SANTOSH SALEEM, , 2776-10 #### [facility] ([id number]) [address], [facility] [address] [place] [address] COMPLETE BLOOD COUNTon 10-15 Erythrocyte distribution width (RBC) [Ratio] 18.7 % High 11.5-15.0 [facility] Comment on above: Performed By: #### C SANTOSH MILLIGAN, , 2776-10 #### [facility] ([id number]) [address], [address] [place] [address] Hematocrit (Bld) [Volume fraction] 29.7 % Low 35-47 [facility] Comment on above: Performed By: #### C , [facility], , 2776-10 #### [facility] ([id number]) [address], [address] [place] [address] Hemoglobin (Bld) [Mass/Vol] 9.3 g/dL Low 11.7-15.5 [facility] Comment on above: Performed By: #### Timmy MILLIGAN, [facility], , 2776-10 #### [facility] ([id number]) [address], [address] [place] [address] MCH (RBC) [Entitic mass] 25.1 pg Low 27-34 [facility] Comment on above: Performed By: #### C SRINI, [facility], , 2776-10 #### [facility] ([id number]) [address], [address] [place] [address] MCHC (RBC) [Mass/Vol] 31.3 g/dL Low 32-36 [facility] Comment on above: Performed By: #### Timmy MILILGAN, [facility], , 2776-10 #### [facility] ([id number]) [address], [address] [place] [address] MCV (RBC) [Entitic vol] 80 fL Normal 80-100 [facility] Comment on above: Performed By: #### Timmy BC, [facility], , 2776-10 #### [facility] ([id number]) [address], [address] [place] [address] Platelet mean volume (Bld) [Entitic vol] 7.0 fL Normal 7-12 [facility] Comment on above: Performed By: #### C SRINI, [facility], , 2776-10 #### [facility] ([id number]) [address], [address] [place] [address] Platelets (Bld) [#/Vol] 705 10*3/uL High 150-450 [facility] Comment on above: Performed By: #### C SRINI [facility], , 2776-10 #### [facility] ([id number]) [address], [facility] [address] [place] [address] RBC COUNT 3.71 X10E12/L Low 3.80-5.20 [facility] Comment on above: Performed By: #### Timmy MILLIGAN [facility], , 2776-10 #### [facility] ([id number]) [address], [facility] [address] [place] [address] WBC (Bld) [#/Vol] 24.4 10*3/uL High 4.0-11.0 [facility] Comment on above: Performed By: #### Timmy MILLIGAN [facility], , 1 #### [facility] ([id number]) [address], [address] [place] [address] Calcium.ionized (Bld) [Mass/ Vol]on 10-15-2023 IONIZED CALCIUM 4.8 mg/dL Normal 4.5-5.3 [facility] Comment on above: Performed By: #### 3 8230-9 #### [facility] ([id number]) [address] [address] [place] [address] FL SWALLOW MOTILITY FUNCTION on 10-15-2023 FL [...] Augusto Zamora DO on 10/15/2023 2:12 PM I, Denny Pereira MD have personally reviewed the image(s) and agree with and/or edited the report Finalized by Denny Pereira MD on 10/15/2023 2:48 PM Normal [facility] Glucose Glucometer (BldC) [M ass/Vol]on 10-15-2023 Glucose [Mass/Vol] 111 mg/dL High 65-99 [facility] Glucose [Mass/Vol] 93 mg/dL Normal 65-99 [facility] Glucose [Mass/Vol] 99 mg/dL Normal 65-99 [facility] MAGNESIUMon 10-15-2023 Magnesium [Mass/Vol] 1.5 mg/dL Low 1.8-2.6 [facility] Comment on above: Performed By: #### E LEC #### [facility] ([id number]) [address], [address] [place] [address] PHOSPHORUSon 10-15-2023 Phosphate [Mass/Vol] 3.4 mg/dL Normal 2.4-4.9 [facility] Comment on above: Performed By: #### E LEC #### [facility] ([id number]) [address], [address] [place] [address] Vancomycin trough [Mass/Vol] on 10-15-2023 VANCOMYCIN TROUGH 15.5 ug/mL Normal 5.0-20.0 [facility] Comment on above: Performed By: #### E LEC #### [facility] ([id number]) [address], [address] [place] [address] ELECTROLYTESon 10-14-2023 Anion gap [Moles/Vol] 7 mmol/L Normal 5-15 [facility] Comment on above: Performed By: #### E LEC #### [facility] ([id number]) [address], [address] [place] [address] Chloride [Moles/Vol] 106 mmol/L Normal 98-109 [facility] Comment on above: Performed By: #### E LEC #### [facility] ([id number]) [address], [address] [place] [address] CO2 [Moles/Vol] 22 mmol/L Normal 22-32 [facility] Comment on above: Performed By: #### E LEC #### [facility] ([id number]) [address], [address] [place] [address] Potassium [Moles/Vol] 5.8 mmol/L High 3.5-5.0 [facility] Comment on above: Performed By: #### E LEC #### [facility] ([id number]) [address], [address] [place] [address] Sodium [Moles/Vol] 135 mmol/L Normal 134-146 [facility] Comment on above: Performed By: #### E LEC #### [facility] ([id number]) [address], [address] [place] [address] Glucose Glucometer (BldC) [M ass/Vol]on 10-14-2023 Glucose [Mass/Vol] 84 mg/dL Normal 65-99 [facility] Glucose [Mass/Vol] 105 mg/dL High 65-99 [facility] Glucose [Mass/Vol] 85 mg/dL Normal 65-99 [facility] BLOOD CULTUREon 10-13-2023 Bacteria identified Aer cx Nom (Bld) SPECIMEN NOTES SUBOPTIMAL VOLUME OF BLOOD COLLECTED, RESULTS MAY BE AFFECTED. CULTURE RESULTS NO GROWTH 5 DAYS Normal [facility] Comment on above: Performed By: #### 1 7928-3 #### [facility] ([id number]) [address] [facility], [address] [place] [address] BLOOD CULTUREon 10-05-2023 Bacteria identified Aer cx Nom (Bld) CULTURE RESULTS STAPHYLOCOCCUS AUREUS METHICILLIN RESISTANT Staphylcoccus aureus detected by PCR. mecA/C and MREJ gene detected by PCR (MRSA). Organism: STAPHYLOCOCCUS AUREUS Antibiotic Interpretation NATALIA Status CEFAZOLIN R F CLINDAMYCIN R >=4 F OXACILLIN R >=4 F TRIMETH/SULFAMETHOXAZOLE S <=.5/9.5 F VANCOMYCIN S 1 F DAPTOMYCIN S 0.25 F DOXYCYCLINE S 2 F Susceptible [facility] Comment on above: Performed By: #### 1 7928-3 #### [facility] ([id number]) [address] [place] [address], [address] [place] [address] Calcium [Mass/volume] in Ser um or PlasmaOrdered By: Jesus Alberto Aquino on 08-20-2023 Calcium [Mass/Vol] 7.5 mg/dL 8.6-10.3 [facility] Carbon dioxide, total [Moles /volume] in Serum or PlasmaOrdered By: Jesus Alberto Aquino on 08-20-2023 CO2 [Moles/Vol] 25.5 mmol/L 21.0-31.0 [facility] Chloride [Moles/volume] in S kaveh or PlasmaOrdered By: Jesus Alberto Aquino on 08-20-2023 Chloride [Moles/Vol] 109 mmol/L 98-107 [facility] Creatinine [Mass/volume] in Serum or PlasmaOrdered By: Jesus Alberto Aquino on 08-20-2023 Creatinine [Mass/Vol] 1.08 mg/dL 0.60-1.20 [facility] Comment on above: Delta: 1.60 on 08/19 Glucose [Mass/volume] in Ser um or PlasmaOrdered By: Jesus Alberto Aquino on 08-20-2023 Glucose [Mass/Vol] 57 mg/dL 70-100 [facility] Comment on above: ADA recommended refe rence rangeRandom Glucose Reference Range is dependent on time and content of last meal. Glucose of more than 200 mg/dL in a nonstressed, ambulatory subject supports the diagnosis of Diabetes Mellitus. No Panel InformationOrdered By: Jesus Alberto Aquino on 08-20-2023 Estimated GFR (CKD-EPI) 52.905 mL/Min [facility] Creatinine Clearance (Chem 41.58 [facility] Potassium [Moles/volume] in Serum or PlasmaOrdered By: Jesus Alberto Aquino on 08-20-2023 Potassium [Moles/Vol] 4.2 mmol/L 3.5-5.1 [facility] Serum or plasma anion gap de terminationOrdered By: Jesus Alberto Aquino on 08-20-2023 Anion gap [Moles/Vol] 12.7 mmol/L 6.0-15.0 [facility] Sodium [Moles/volume] in Ser um or PlasmaOrdered By: Jesus Alberto Aquino on 08-20-2023 Sodium [Moles/Vol] 143 mmol/L 136-145 [facility] Urea nitrogen [Mass/volume] in Serum or PlasmaOrdered By: Jesus Alberto Aquino on 08-20-2023 Urea nitrogen [Mass/Vol] 19 mg/dL 7-25 [facility] Erythrocyte distribution wid th Auto (RBC) [Ratio]Ordered By: Jesus Alberto Aquino on 08-19-2023 Erythrocyte distribution width (RBC) [Ratio] 17.2 % 11.9-15.3 [facility] Hematocrit Auto (Bld) [Volum e fraction]Ordered By: Jesus Alberto Aquino on 08-19-2023 Hematocrit (Bld) [Volume fraction] 31.8 % 34.0-46.4 [facility] Hemoglobin [Mass/volume] in BloodOrdered By: Jesus Alberto Aquino on 08-19-2023 Hemoglobin (Bld) [Mass/Vol] 10.3 g/dL 11.8-15.4 [facility] Leukocytes [#/volume] correc juma for nucleated erythrocytes in Blood by Automated counOrdered By: Jesus Alberto Aquino on 08-19-2023 WBC corrected for nucl RBC Auto (Bld) [#/Vol] 15.6 10*3/uL 3.8-11.6 [facility] MCH Auto (RBC) [Entitic mass ]Ordered By: Jesus Alberto Aquino on 08-19-2023 MCH (RBC) [Entitic mass] 27.7 pg 24.7-34.3 [facility] MCHC Auto (RBC) [Mass/Vol]Or dered By: Jesus Alberto Aquino on 08-19-2023 MCHC (RBC) [Mass/Vol] 32.4 g/dL 32.0-35.0 [facility] MCV Auto (RBC) [Entitic vol] Ordered By: Jesus Alberto Aquino on 08-19-2023 MCV (RBC) [Entitic vol] 85.4 fL 80-100 [facility] Platelet mean volume Auto (B ld) [Entitic vol]Ordered By: Jesus Alberto Aquino on 08-19-2023 Platelet mean volume (Bld) [Entitic vol] 8.9 fL 6.3-10.7 [facility] Platelets Auto (Bld) [#/Vol] Ordered By: Jesus Alberto Aquino on 08-19-2023 Platelets (Bld) [#/Vol] 201 10*3/uL 150-450 [facility] RBC Auto (Bld) [#/Vol]Ordere d By: Jesus Alberto Aquino on 08-19-2023 RBC (Bld) [#/Vol] 3.72 10*6/uL 3.60-5.00 [facility] Basophils Auto (Bld) [#/Vol] Ordered By: Jesus Alberto Aquino on 08-18-2023 Basophils (Bld) [#/Vol] 0.1 10*3/uL 0.0-0.2 [facility] Basophils/100 WBC Auto (Bld) Ordered By: Jesus Alberto Aquino on 08-18-2023 Basophils/100 WBC (Bld) 0.3 % . [facility] Eosinophils Auto (Bld) [#/Vo l]Ordered By: Jesus Alberto Aquino on 08-18-2023 Eosinophils (Bld) [#/Vol] 0.0 10*3/uL 0.0-0.45 [facility] Eosinophils/100 WBC Auto (Bl d)Ordered By: Jesus Alberto Aquino on 08-18-2023 Eosinophils/100 WBC (Bld) 0.1 % . [facility] Lymphocytes Auto (Bld) [#/Vo l]Ordered By: Jesus Alberto Aquino on 08-18-2023 Lymphocytes (Bld) [#/Vol] 2.8 10*3/uL 1.00-4.8 [facility] Lymphocytes/100 WBC Auto (Bl d)Ordered By: Jesus Alberto Aquino on 08-18-2023 Lymphocytes/100 WBC (Bld) 10.9 % . [facility] Monocytes Auto (Bld) [#/Vol] Ordered By: Jesus Alberto Aquino on 08-18-2023 Monocytes (Bld) [#/Vol] 1.1 10*3/uL 0.0-0.8 [facility] Monocytes/100 WBC Auto (Bld) Ordered By: Jesus Alberto Aquino on 08-18-2023 Monocytes/100 WBC (Bld) 4.4 % . [facility] Neutrophils Auto (Bld) [#/Vo l]Ordered By: Jesus Alberto Aquino on 08-18-2023 Neutrophils (Bld) [#/Vol] 21.6 10*3/uL 1.8-7.7 [facility] Neutrophils/100 WBC Auto (Bl d)Ordered By: Jesus Alberto Aquino on 08-18-2023 Neutrophils/100 WBC (Bld) 84.3 % . [facility] Nucleated erythrocytes [Pres ence] in Blood by Automated countOrdered By: Jesus Alberto Aquino on 08-18-2023 Nucleated RBC Auto Ql (Bld) 0.2 /100{WBC} 0-0.5 [facility] WBC Auto (Bld) [#/Vol]Ordere d By: Jesus Alberto Aquino on 08-18-2023 WBC (Bld) [#/Vol] 25.6 10*3/uL 3.8-11.6 [facility] Activated partial thrombopla stin time (aPTT) in platelet poor plasma by coagulation aOrdered By: Maury Morrissey on 08-17-2023 aPTT Coag (PPP) [Time] 26.3 s 25.1-36.5 [facility] Comment on above: A hematocrit value g reater than 55% may lead to inaccurate results in coagulation testing. Patients having hematocrit values >55% require a special collection tube for coagulation studies. Please contact the laboratory at [phone] for redraw instructions. Alanine aminotransferase [En zymatic activity/volume] in Serum or PlasmaOrdered By: Maury Morrissey on 08-17-2023 ALT [Catalytic activity/Vol] 24 U/L 7-52 [facility] Albumin [Mass/volume] in Ser um or Plasma by Bromocresol green (BCG) dye binding methoOrdered By: Maury Morrissey on 08-17-2023 Albumin BCG dye [Mass/Vol] 3.4 g/dL 3.5-5.7 [facility] Alkaline phosphatase [Enzyma tic activity/volume] in Serum or PlasmaOrdered By: Maury Morrissey on 08-17-2023 ALP [Catalytic activity/Vol] 64 U/L 34-104 [facility] Anisocytosis LM Ql (Bld)Orde red By: Muary Morrissey on 08-17-2023 Anisocytosis Ql (Bld) Moderate Fir [facility] Aspartate aminotransferase [ Enzymatic activity/volume] in Serum or PlasmaOrdered By: Maury Morrissey on 08-17-2023 AST [Catalytic activity/Vol] 23 U/L 13-39 [facility] Automated erythrocytes count in urine sediment (number/area)Ordered By: Maury Morrissey on 08-17-2023 RBC Auto (Urine sed) [#/Area] 0-1 [HPF] 0-4 [facility] Automated leukocytes count i n urine sediment (number/area)Ordered By: Maury Morrissey on 08-17-2023 WBC Auto (Urine sed) [#/Area] 1-2 [HPF] 0-4 [facility] Basophils Auto (Bld) [#/Vol] Ordered By: Maury Morrissey on 08-17-2023 Basophils (Bld) [#/Vol] 0.0 10*3/uL 0.0-0.2 [facility] Basophils/100 WBC Auto (Bld) Ordered By: Maury Morrissey on 08-17-2023 Basophils/100 WBC (Bld) 0.2 % . [facility] Bilirubin Test strip Ql (U)O rdered By: Maury Morrissey on 08-17-2023 Bilirubin Ql (U) Negative Negative [facility] Bilirubin.direct [Mass/volum e] in Serum or PlasmaOrdered By: Maury Morrissey on 08-17-2023 Bilirubin.direct [Mass/Vol] 0.20 mg/dL 0.03-0.18 [facility] Bilirubin.total [Mass/volume ] in Serum or PlasmaOrdered By: Maury Morrissey on 08-17-2023 Bilirubin [Mass/Vol] 0.6 mg/dL 0.3-1.0 [facility] Calcium [Mass/volume] in Ser um or PlasmaOrdered By: Maury Morrissey on 08-17-2023 Calcium [Mass/Vol] 9.1 mg/dL 8.6-10.3 [facility] Carbon dioxide, total [Moles /volume] in Serum or PlasmaOrdered By: Maury Morrissey on 08-17-2023 CO2 [Moles/Vol] 27.3 mmol/L 21.0-31.0 [facility] Chloride [Moles/volume] in S kaveh or PlasmaOrdered By: Maury Morrissey on 08-17-2023 Chloride [Moles/Vol] 97 mmol/L 98-107 [facility] Color Auto (U)Ordered By: Arturo red Yuni on 08-17-2023 Color (U) Yellow Yellow [facility] Creatine kinase [Enzymatic a ctivity/volume] in Serum or PlasmaOrdered By: Maury Morrissey on 08-17-2023 CK [Catalytic activity/Vol] 87 U/L 30-223 [facility] Creatinine [Mass/volume] in Serum or PlasmaOrdered By: Maury Morrissey on 08-17-2023 Creatinine [Mass/Vol] 4.44 mg/dL 0.60-1.20 [facility] Eosinophils Auto (Bld) [#/Vo l]Ordered By: Maury Morrissey on 08-17-2023 Eosinophils (Bld) [#/Vol] 0.0 10*3/uL 0.0-0.45 [facility] Eosinophils/100 WBC Auto (Bl d)Ordered By: Maury Morrissey on 08-17-2023 Eosinophils/100 WBC (Bld) 0.0 % . [facility] Erythrocyte distribution wid th Auto (RBC) [Ratio]Ordered By: Maury Morrissey on 08-17-2023 Erythrocyte distribution width (RBC) [Ratio] 17.6 % 11.9-15.3 [facility] Globulin Calc (S) [Mass/Vol] Ordered By: Maury Morrissey on 08-17-2023 Globulin (S) [Mass/Vol] 3.7 g/dL [facility] Glucose [Mass/volume] in Ser um or PlasmaOrdered By: Maury Morrissey on 08-17-2023 Glucose [Mass/Vol] 79 mg/dL 70-100 [facility] Comment on above: ADA recommended refe rence rangeRandom Glucose Reference Range is dependent on time and content of last meal. Glucose of more than 200 mg/dL in a nonstressed, ambulatory subject supports the diagnosis of Diabetes Mellitus. Hematocrit Auto (Bld) [Volum e fraction]Ordered By: Maury Morrissey on 08-17-2023 Hematocrit (Bld) [Volume fraction] 37.9 % 34.0-46.4 [facility] Hemoglobin [Mass/volume] in BloodOrdered By: Maury Morrissey on 08-17-2023 Hemoglobin (Bld) [Mass/Vol] 12.0 g/dL 11.8-15.4 [facility] Hypochromia LM Ql (Bld)Order ed By: Maury Morrissey on 08-17-2023 Hypochromia Ql (Bld) Slight [facility] INR in Platelet poor plasma by Coagulation assayOrdered By: Maury Morrissey on 08-17-2023 INR Coag (PPP) [Relative time] 1.1 {INR} [facility] Comment on above: INR Therapeutic Rang [...] on 08-17-2023 Ketones (U) [Mass/Vol] Negative Negative [facility] - UrinalysisOrder ed By: Maury Morrissey on 08-17-2023 Hyaline casts LM Ql (Urine sed) 0-8 [LPF] 0-8 [facility] Lactate [Moles/volume] in Se rum or PlasmaOrdered By: Maury Morrissey on 08-17-2023 Lactate [Moles/Vol] 1.1 mmol/L 0.5-2.2 [facility] Leukocytes [#/volume] correc juma for nucleated erythrocytes in Blood by Automated counOrdered By: Maury Morrissey on 08-17-2023 WBC corrected for nucl RBC Auto (Bld) [#/Vol] 29.3 10*3/uL 3.8-11.6 [facility] Lymphocytes Auto (Bld) [#/Vo l]Ordered By: Maury Morrissey on 08-17-2023 Lymphocytes (Bld) [#/Vol] 2.3 10*3/uL 1.00-4.8 [facility] Lymphocytes/100 WBC Auto (Bl d)Ordered By: Maury Morrissey on 08-17-2023 Lymphocytes/100 WBC (Bld) 7.8 % . [facility] MCH Auto (RBC) [Entitic mass ]Ordered By: Maury Morrissey on 08-17-2023 MCH (RBC) [Entitic mass] 27.3 pg 24.7-34.3 [facility] MCHC Auto (RBC) [Mass/Vol]Or dered By: Maury Morrissey on 08-17-2023 MCHC (RBC) [Mass/Vol] 31.6 g/dL 32.0-35.0 [facility] MCV Auto (RBC) [Entitic vol] Ordered By: Maury Morrissey on 08-17-2023 MCV (RBC) [Entitic vol] 86.4 fL 80-100 [facility] Monocyte distribution width [Entitic volume] in Blood by AutomatedOrdered By: Maury Morrissey on 08-17-2023 Monocyte distribution width Auto (Bld) [Entitic vol] 23.25 % 0.00-20.00 [facility] Comment on above: For adults in ED, MD W > 20.0 may be associated with a higher risk of sepsis during the first 12 hrs of hospital admission Monocytes Auto (Bld) [#/Vol] Ordered By: Maury Morrissey on 08-17-2023 Monocytes (Bld) [#/Vol] 1.6 10*3/uL 0.0-0.8 [facility] Monocytes/100 WBC Auto (Bld) Ordered By: Maury Morrissey on 08-17-2023 Monocytes/100 WBC (Bld) 5.5 % . [facility] Natriuretic peptide B [Mass/ Vol]Ordered By: Maury Morrissey on 08-17-2023 Natriuretic peptide B (Bld) [Mass/Vol] 68.0 pg/mL 5-100 [facility] Neutrophils Auto (Bld) [#/Vo l]Ordered By: Maury Morrissey on 08-17-2023 Neutrophils (Bld) [#/Vol] 25.4 10*3/uL 1.8-7.7 [facility] Neutrophils/100 WBC Auto (Bl d)Ordered By: Maury Morrissey on 08-17-2023 Neutrophils/100 WBC (Bld) 86.5 % . [facility] Nitrite Test strip Ql (U)Ord ered By: Maury Morrissey on 08-17-2023 Nitrite Ql (U) Negative Negative [facility] No Panel InformationOrdered By: Maury Morrissey on 08-17-2023 Estimated GFR (CKD-EPI) 9.700 mL/Min [facility] Creatinine Clearance (Chem 10.00 [facility] Nucleated erythrocytes [Pres ence] in Blood by Automated countOrdered By: Maury Morrissey on 08-17-2023 Nucleated RBC Auto Ql (Bld) 0.1 /100{WBC} 0-0.5 [facility] Platelet adequacy [Presence] in Blood by Light microscopyOrdered By: Maury Morrissey on 08-17-2023 Platelets LM Ql (Bld) Normal Normal Fir [facility] Platelet mean volume Auto (B ld) [Entitic vol]Ordered By: Maury Morrissey on 08-17-2023 Platelet mean volume (Bld) [Entitic vol] 8.8 fL 6.3-10.7 [facility] Platelet morphology finding [Identifier] in BloodOrdered By: Maury Morrissey on 08-17-2023 Platelet morphology finding Nom (Bld) Normal Normal [facility] Platelets Auto (Bld) [#/Vol] Ordered By: Maury Morrissey on 08-17-2023 Platelets (Bld) [#/Vol] 298 10*3/uL 150-450 [facility] Polychromasia [Presence] in Blood by Light microscopyOrdered By: Maury Morrissey on 08-17-2023 Polychromasia LM Ql (Bld) Slight [facility] Potassium [Moles/volume] in Serum or PlasmaOrdered By: Maury Morrissey on 08-17-2023 Potassium [Moles/Vol] 4.5 mmol/L 3.5-5.1 [facility] Protein Auto test strip (U) [Mass/Vol]Ordered By: Maury Morrissey on 08-17-2023 Protein (U) [Mass/Vol] Negative Negative Fi [facility] Protein [Mass/volume] in Ser um or PlasmaOrdered By: Maury Morrissey on 08-17-2023 Protein [Mass/Vol] 7.1 g/dL 6.4-8.9 [facility] Prothrombin time (PT)Ordered By: Maury Morrissey on 08-17-2023 PT Coag (PPP) [Time] 12.6 s 9.0-12.9 [facility] Comment on above: A hematocrit value g reater than 55% may lead to inaccurate results in coagulation testing. Patients having hematocrit values >55% require a special collection tube for coagulation studies. Please contact the laboratory at [phone] for redraw instructions. RBC Auto (Bld) [#/Vol]Ordere d By: Maury Morrissey on 08-17-2023 RBC (Bld) [#/Vol] 4.39 10*6/uL 3.60-5.00 [facility] RBC morphologyOrdered By: Arturo Morrissey on 08-17-2023 RBC morphology finding Nom (Bld) N/A [facility] Serum or plasma albumin/glob ulin mass ratioOrdered By: Maury Morrissey on 08-17-2023 Albumin/Globulin [Mass ratio] 0.9 {ratio} [facility] Serum or plasma anion gap de terminationOrdered By: Maury Morrissey on 08-17-2023 Anion gap [Moles/Vol] 23.2 mmol/L 6.0-15.0 [facility] Serum or plasma non-glucuron idated bilirubin measurement (mass/volume)Ordered By: Maury Morrissey on 08-17-2023 Bilirubin.indirect [Mass/Vol] 0.4 mg/dL [facility] Sodium [Moles/volume] in Ser um or PlasmaOrdered By: Maury Morrissey on 08-17-2023 Sodium [Moles/Vol] 143 mmol/L 136-145 [facility] Specific gravity Auto test s trip (U) [Rel density]Ordered By: Maury Morrissey on 08-17-2023 Specific gravity (U) [Rel density] 1.008 1.001-1.03 0 [facility] Squamous epithelial cells de tection in urine sediment by light microscopyOrdered By: Maury Morrissey on 08-17-2023 Epithelial cells.squamous LM Ql (Urine sed) None seen [HPF] 0-2 [facility] Troponin I.cardiac [Mass/vol ume] in Serum or Plasma by Detection limit <= 0.01 ng/Ordered By: Maury Morrissey on 08-17-2023 Troponin I.cardiac DL <= 0.01 ng/mL [Mass/Vol] 38.1 pg/mL 0.0-15.0 [facility] Urea nitrogen [Mass/volume] in Serum or PlasmaOrdered By: Maury Morrissey on 08-17-2023 Urea nitrogen [Mass/Vol] 92 mg/dL 7-25 [facility] Urine bacteria detection by automated methodOrdered By: Maury Morrissey on 08-17-2023 Bacteria Auto Ql (U) 1+ None Seen [facility] Urine clarity by refractomet ry automatedOrdered By: Maury Morrissey on 08-17-2023 Clarity Refractometry automated (U) Clear Clear [facility] Urine glucose measurement by automated test strip (mass/volume)Ordered By: Maury Morrissey on 08-17-2023 Glucose Auto test strip (U) [Mass/Vol] Normal mg/dL Normal [facility] Urine hemoglobin detection b y automated test stripOrdered By: Maury Morrissey on 08-17-2023 Hemoglobin Auto test strip Ql (U) Trace Negative [facility] Urine leukocyte esterase det ection by automated test stripOrdered By: Maury Morrissey on 08-17-2023 Leukocyte esterase Auto test strip Ql (U) Negative Negative [facility] Urobilinogen Auto test strip (U) [Mass/Vol]Ordered By: Maury Morrissey on 08-17-2023 Urobilinogen (U) [Mass/Vol] Normal mg/dL Normal [facility] WBC Auto (Bld) [#/Vol]Ordere d By: Maury Morrissey on 08-17-2023 WBC (Bld) [#/Vol] 29.3 10*3/uL 3.8-11.6 [facility] pH Auto test strip (U)Ordere d By: Maury Morrissey on 08-17-2023 pH (U) 5.5 [pH] 5.0-9.0 [facility] Anisocytosis LM Ql (Bld)Orde red By: Bhavesh Cristobal on 07-14-2023 Anisocytosis Ql (Bld) Marked [facility] Basophils Auto (Bld) [#/Vol] Ordered By: Bhavesh Cristobal on 07-14-2023 Basophils (Bld) [#/Vol] 0.1 10*3/uL 0.0-0.2 [facility] Basophils/100 WBC Auto (Bld) Ordered By: Bhavesh Cristobal on 07-14-2023 Basophils/100 WBC (Bld) 0.3 % . [facility] Calcium [Mass/volume] in Ser um or PlasmaOrdered By: Bhavesh Cristobal on 07-14-2023 Calcium [Mass/Vol] 8.0 mg/dL 8.6-10.3 [facility] Carbon dioxide, total [Moles /volume] in Serum or PlasmaOrdered By: Bhavesh Cristobal on 07-14-2023 CO2 [Moles/Vol] 28.1 mmol/L 21.0-31.0 [facility] Chloride [Moles/volume] in S kaveh or PlasmaOrdered By: Bhavesh Cristobal on 07-14-2023 Chloride [Moles/Vol] 110 mmol/L 98-107 [facility] Creatinine [Mass/volume] in Serum or PlasmaOrdered By: Bhavesh Cristobal on 07-14-2023 Creatinine [Mass/Vol] 1.10 mg/dL 0.60-1.20 [facility] Eosinophils Auto (Bld) [#/Vo l]Ordered By: Bhavesh Cristobal on 07-14-2023 Eosinophils (Bld) [#/Vol] 0.1 10*3/uL 0.0-0.45 [facility] Eosinophils/100 WBC Auto (Bl d)Ordered By: Bhavesh Cristobal on 07-14-2023 Eosinophils/100 WBC (Bld) 0.4 % . [facility] Erythrocyte distribution wid th Auto (RBC) [Ratio]Ordered By: Bhavesh Cristobal on 07-14-2023 Erythrocyte distribution width (RBC) [Ratio] 22.8 % 11.9-15.3 [facility] Glucose Glucometer (BldC) [M ass/Vol]Ordered By: Jolanta Mckenzie on 07-14-2023 Glucose [Mass/Vol] 80 mg/dL [facility] Comment on above: Random Glucose Refer ence Range is dependent on time and content of last meal. Glucose of more than 200 mg/dL in a nonstressed, ambulatory subject supports the diagnosis of Diabetes Mellitus. Glucose [Mass/volume] in Ser um or PlasmaOrdered By: Bhavesh Cristobal on 07-14-2023 Glucose [Mass/Vol] 84 mg/dL 70-100 [facility] Comment on above: ADA recommended refe rence rangeRandom Glucose Reference Range is dependent on time and content of last meal. Glucose of more than 200 mg/dL in a nonstressed, ambulatory subject supports the diagnosis of Diabetes Mellitus. Hematocrit Auto (Bld) [Volum e fraction]Ordered By: Bhavesh Cristobal on 07-14-2023 Hematocrit (Bld) [Volume fraction] 33.6 % 34.0-46.4 [facility] Hemoglobin [Mass/volume] in BloodOrdered By: Bhavesh Cristobal on 07-14-2023 Hemoglobin (Bld) [Mass/Vol] 10.5 g/dL 11.8-15.4 [facility] Hypochromia LM Ql (Bld)Order ed By: Bhavesh Cristobal on 07-14-2023 Hypochromia Ql (Bld) Slight [facility] Leukocytes [#/volume] correc juma for nucleated erythrocytes in Blood by Automated counOrdered By: Bhavesh Cristobal on 07-14-2023 WBC corrected for nucl RBC Auto (Bld) [#/Vol] 19.3 10*3/uL 3.8-11.6 [facility] Lymphocytes Auto (Bld) [#/Vo l]Ordered By: Bhavesh Cristobal on 07-14-2023 Lymphocytes (Bld) [#/Vol] 4.3 10*3/uL 1.00-4.8 [facility] Lymphocytes/100 WBC Auto (Bl d)Ordered By: Bhavesh Cristobal on 07-14-2023 Lymphocytes/100 WBC (Bld) 22.1 % . [facility] MCH Auto (RBC) [Entitic mass ]Ordered By: Bhavesh Cristobal on 07-14-2023 MCH (RBC) [Entitic mass] 26.2 pg 24.7-34.3 [facility] MCHC Auto (RBC) [Mass/Vol]Or dered By: Bhavesh Cristobal on 07-14-2023 MCHC (RBC) [Mass/Vol] 31.2 g/dL 32.0-35.0 [facility] MCV Auto (RBC) [Entitic vol] Ordered By: Bhavesh Cristobal on 07-14-2023 MCV (RBC) [Entitic vol] 84.0 fL 80-100 [facility] Monocytes Auto (Bld) [#/Vol] Ordered By: Bhavesh Cristobal on 07-14-2023 Monocytes (Bld) [#/Vol] 1.4 10*3/uL 0.0-0.8 [facility] Monocytes/100 WBC Auto (Bld) Ordered By: Bhavesh Cristobal on 07-14-2023 Monocytes/100 WBC (Bld) 7.3 % . [facility] Neutrophils Auto (Bld) [#/Vo l]Ordered By: Bhavesh Cristobal on 07-14-2023 Neutrophils (Bld) [#/Vol] 13.5 10*3/uL 1.8-7.7 [facility] Neutrophils/100 WBC Auto (Bl d)Ordered By: Bhavesh Cristobal on 07-14-2023 Neutrophils/100 WBC (Bld) 69.9 % . [facility] No Panel InformationOrdered By: Bhavesh Cristobal on 07-14-2023 Estimated GFR (CKD-EPI) 51.753 mL/Min [facility] Creatinine Clearance (Chem 42.83 [facility] Nucleated erythrocytes [Pres ence] in Blood by Automated countOrdered By: Bhavesh Cristobal on 07-14-2023 Nucleated RBC Auto Ql (Bld) 0.1 /100{WBC} 0-0.5 [facility] Platelet adequacy [Presence] in Blood by Light microscopyOrdered By: Bhavesh Cristobal on 07-14-2023 Platelets LM Ql (Bld) Normal Normal [facility] Platelet mean volume Auto (B ld) [Entitic vol]Ordered By: Bhavesh Cristobal on 07-14-2023 Platelet mean volume (Bld) [Entitic vol] 7.9 fL 6.3-10.7 [facility] Platelet morphology finding [Identifier] in BloodOrdered By: Bhavesh Cristobal on 07-14-2023 Platelet morphology finding Nom (Bld) Normal Normal [facility] Platelets Auto (Bld) [#/Vol] Ordered By: Bhavesh Cristobal on 07-14-2023 Platelets (Bld) [#/Vol] 238 10*3/uL 150-450 [facility] Polychromasia [Presence] in Blood by Light microscopyOrdered By: Bhavesh Cristobal on 07-14-2023 Polychromasia LM Ql (Bld) Slight [facility] Potassium [Moles/volume] in Serum or PlasmaOrdered By: Bhavesh Cristobal on 07-14-2023 Potassium [Moles/Vol] 4.2 mmol/L 3.5-5.1 [facility] RBC Auto (Bld) [#/Vol]Ordere d By: Bhavesh Cristobal on 07-14-2023 RBC (Bld) [#/Vol] 4.00 10*6/uL 3.60-5.00 [facility] RBC morphologyOrdered By: Wilber Cristobal on 07-14-2023 RBC morphology finding Nom (Bld) N/A [facility] Serum or plasma anion gap de terminationOrdered By: Bhavesh Cristobal on 07-14-2023 Anion gap [Moles/Vol] 9.1 mmol/L 6.0-15.0 [facility] Sodium [Moles/volume] in Ser um or PlasmaOrdered By: Bhavesh Cristobal on 07-14-2023 Sodium [Moles/Vol] 143 mmol/L 136-145 [facility] Urea nitrogen [Mass/volume] in Serum or PlasmaOrdered By: Bhavesh Cristobal on 07-14-2023 Urea nitrogen [Mass/Vol] 24 mg/dL 7- [facility] WBC Auto (Bld) [#/Vol]Ordere d By: Bhavesh Cristobal on 07-14-2023 WBC (Bld) [#/Vol] 19.3 10*3/uL 3.8-11.6 [facility] Alanine aminotransferase [En zymatic activity/volume] in Serum or PlasmaOrdered By: Jolanta Mckenzie on 07-12-2023 ALT [Catalytic activity/Vol] 16 U/L 7-52 [facility] Albumin [Mass/volume] in Ser um or Plasma by Bromocresol green (BCG) dye binding methoOrdered By: Jolanta Mckenzie on 07-12-2023 Albumin BCG dye [Mass/Vol] 3.0 g/dL 3.5-5.7 [facility] Alkaline phosphatase [Enzyma tic activity/volume] in Serum or PlasmaOrdered By: Jolanta Mckenzie on 07-12-2023 ALP [Catalytic activity/Vol] 45 U/L 34-104 [facility] Aspartate aminotransferase [ Enzymatic activity/volume] in Serum or PlasmaOrdered By: Jolanta Mckenzie on 07-12-2023 AST [Catalytic activity/Vol] 14 U/L 13-39 [facility] Bilirubin.total [Mass/volume ] in Serum or PlasmaOrdered By: Jolanta Mckenzie on 07-12-2023 Bilirubin [Mass/Vol] 0.3 mg/dL 0.3-1.0 [facility] Globulin Calc (S) [Mass/Vol] Ordered By: Jolanta Mckenzie on 07-12-2023 Globulin (S) [Mass/Vol] 2.7 g/dL [facility] Protein [Mass/volume] in Ser um or PlasmaOrdered By: Jolanta Mckenzie on 07-12-2023 Protein [Mass/Vol] 5.7 g/dL 6.4-8.9 [facility] Serum or plasma albumin/glob ulin mass ratioOrdered By: Jolanta Mckenzie on 07-12-2023 Albumin/Globulin [Mass ratio] 1.1 {ratio} [facility] Acanthocytes [Presence] in B lood by Light microscopyOrdered By: Marshall Dominguez on 07-10-2023 Acanthocytes LM Ql (Bld) Slight [facility] Aerobic cultureOrdered By: Viki Mckenzie on 07-10-2023 Bacteria identified Aer cx Nom (Unsp spec) [facility] Anisocytosis LM Ql (Bld)Orde red By: Marshall Dominguez on 07-10-2023 Anisocytosis Ql (Bld) Moderate [facility] Automated erythrocytes count in urine sediment (number/area)Ordered By: Marshall Dominguez on 07-10-2023 RBC Auto (Urine sed) [#/Area] 3-4 [HPF] 0-4 [facility] Automated leukocytes count i n urine sediment (number/area)Ordered By: Marshall Dominguez on 07-10-2023 WBC Auto (Urine sed) [#/Area] Innumerable [HPF] 0-4 [facility] Bacterial blood cultureOrder ed By: Marshall Dominguez on 07-10-2023 Bacteria identified Cx Nom (Bld) NO GROWTH 5 DAYS [facility] Basophils Auto (Bld) [#/Vol] Ordered By: Marshall Dominguez on 07-10-2023 Basophils (Bld) [#/Vol] 0.0 10*3/uL 0.0-0.2 [facility] Basophils/100 WBC Auto (Bld) Ordered By: Marshall Dominguez on 07-10-2023 Basophils/100 WBC (Bld) 0.2 % . [facility] Bilirubin Test strip Ql (U)O rdered By: Marshall Dominguez on 07-10-2023 Bilirubin Ql (U) Negative Negative [facility] Calcium [Mass/volume] in Ser um or PlasmaOrdered By: Marshall Dominguez on 07-10-2023 Calcium [Mass/Vol] 8.9 mg/dL 8.6-10.3 [facility] Carbon dioxide, total [Moles /volume] in Serum or PlasmaOrdered By: Marshall Dominguez on 07-10-2023 CO2 [Moles/Vol] 32.4 mmol/L 21.0-31.0 [facility] Chloride [Moles/volume] in S kaveh or PlasmaOrdered By: Marshall Dominguez on 07-10-2023 Chloride [Moles/Vol] 105 mmol/L 98-107 [facility] Color Auto (U)Ordered By: Ruslan Dominguez on 07-10-2023 Color (U) Yellow Yellow [facility] Creatinine [Mass/volume] in Serum or PlasmaOrdered By: Marshall Dominguez on 07-10-2023 Creatinine [Mass/Vol] 1.56 mg/dL 0.60-1.20 [facility] Eosinophils Auto (Bld) [#/Vo l]Ordered By: Marshall Dominguez on 07-10-2023 Eosinophils (Bld) [#/Vol] 0.1 10*3/uL 0.0-0.45 [facility] Eosinophils/100 WBC Auto (Bl d)Ordered By: Marshall Dominguez on 07-10-2023 Eosinophils/100 WBC (Bld) 0.4 % . [facility] Erythrocyte distribution wid th Auto (RBC) [Ratio]Ordered By: Marshall Dominguez on 07-10-2023 Erythrocyte distribution width (RBC) [Ratio] 22.2 % 11.9-15.3 [facility] Glucose [Mass/volume] in Ser um or PlasmaOrdered By: Marshall Dominguez on 07-10-2023 Glucose [Mass/Vol] 83 mg/dL 70-100 [facility] Comment on above: ADA recommended refe rence rangeRandom Glucose Reference Range is dependent on time and content of last meal. Glucose of more than 200 mg/dL in a nonstressed, ambulatory subject supports the diagnosis of Diabetes Mellitus. Gram stain for investigation of transfusion reactionOrdered By: Jolanta Mckenzie on 07-10-2023 Microscopic observation Gram stain Nom (Unsp spec) [facility] Hematocrit Auto (Bld) [Volum e fraction]Ordered By: Marshall Dominguez on 07-10-2023 Hematocrit (Bld) [Volume fraction] 34.4 % 34.0-46.4 [facility] Hemoglobin [Mass/volume] in BloodOrdered By: Marshall Dominguez on 07-10-2023 Hemoglobin (Bld) [Mass/Vol] 11.0 g/dL 11.8-15.4 [facility] Hypochromia LM Ql (Bld)Order ed By: Marshall Dominguez on 07-10-2023 Hypochromia Ql (Bld) Slight [facility] INR in Platelet poor plasma by Coagulation assayOrdered By: Marshall Dominguez on 07-10-2023 INR Coag (PPP) [Relative time] 0.9 {INR} [facility] Comment on above: INR Therapeutic Rang [...] on 07-10-2023 Ketones (U) [Mass/Vol] Negative Negative [facility] Laboratory - UrinalysisOrder ed By: Marshall Dominguez on 07-10-2023 Hyaline casts LM Ql (Urine sed) 0-8 [LPF] 0-8 [facility] Lactate [Moles/volume] in Se rum or PlasmaOrdered By: Marshall Dominguez on 07-10-2023 Lactate [Moles/Vol] 1.6 mmol/L 0.5-2.2 [facility] Leukocytes [#/volume] correc juma for nucleated erythrocytes in Blood by Automated counOrdered By: Marshall Dominguez on 07-10-2023 WBC corrected for nucl RBC Auto (Bld) [#/Vol] 21.3 10*3/uL 3.8-11.6 [facility] Lymphocytes Auto (Bld) [#/Vo l]Ordered By: Marshall Dominguez on 07-10-2023 Lymphocytes (Bld) [#/Vol] 6.7 10*3/uL 1.00-4.8 [facility] Lymphocytes/100 WBC Auto (Bl d)Ordered By: Marshall Dominguez on 07-10-2023 Lymphocytes/100 WBC (Bld) 31.5 % . [facility] MCH Auto (RBC) [Entitic mass ]Ordered By: Marshall Dominguez on 07-10-2023 MCH (RBC) [Entitic mass] 26.5 pg 24.7-34.3 [facility] MCHC Auto (RBC) [Mass/Vol]Or dered By: Marshall Dominguez on 07-10-2023 MCHC (RBC) [Mass/Vol] 32.0 g/dL 32.0-35.0 [facility] MCV Auto (RBC) [Entitic vol] Ordered By: Marshall Dominguez on 07-10-2023 MCV (RBC) [Entitic vol] 82.7 fL 80-100 [facility] Microcytes LM Ql (Bld)Ordere d By: Marshall Dominguez on 07-10-2023 Microcytes Ql (Bld) Moderate [facility] Monocytes Auto (Bld) [#/Vol] Ordered By: Marshall Dominguez on 07-10-2023 Monocytes (Bld) [#/Vol] 1.4 10*3/uL 0.0-0.8 [facility] Monocytes/100 WBC Auto (Bld) Ordered By: Marshall Dominguez on 07-10-2023 Monocytes/100 WBC (Bld) 6.5 % . [facility] Natriuretic peptide B [Mass/ Vol]Ordered By: Marshall Dominguez on 07-10-2023 Natriuretic peptide B (Bld) [Mass/Vol] 54.0 pg/mL 5-100 [facility] Neutrophils Auto (Bld) [#/Vo l]Ordered By: Marshall Dominguez on 07-10-2023 Neutrophils (Bld) [#/Vol] 13.1 10*3/uL 1.8-7.7 [facility] Neutrophils/100 WBC Auto (Bl d)Ordered By: Marshall Dominguez on 07-10-2023 Neutrophils/100 WBC (Bld) 61.4 % . [facility] Nitrite Test strip Ql (U)Ord ered By: Marshall Dominguez on 07-10-2023 Nitrite Ql (U) Positive Negative [facility] No Panel InformationOrdered By: Marshall Dominguez on 07-10-2023 Estimated GFR (CKD-EPI) 34.030 mL/Min [facility] Creatinine Clearance (Chem N/A [facility] Nucleated erythrocytes [Pres ence] in Blood by Automated countOrdered By: Marshall Dominguez on 07-10-2023 Nucleated RBC Auto Ql (Bld) 0.1 /100{WBC} 0-0.5 [facility] Ovalocyte detectionOrdered B y: Marshall Dominguez on 07-10-2023 Ovalocytes LM [facility]l [facility]Bld) [facility] Platelet adequacy [Presence] in Blood by Light microscopyOrdered By: Marshall Dominguez on 07-10-2023 Platelets LM Ql (Bld) Normal Normal [facility] Platelet mean volume Auto (B ld) [Entitic vol]Ordered By: Marshall Dominguez on 07-10-2023 Platelet mean volume (Bld) [Entitic vol] 8.0 fL 6.3-10.7 [facility] Platelet morphology finding [Identifier] in BloodOrdered By: Marshall Dominguez on 07-10-2023 Platelet morphology finding Nom (Bld) N/A [facility] Platelets Auto (Bld) [#/Vol] Ordered By: Marshall Dominguez on 07-10-2023 Platelets (Bld) [#/Vol] 250 10*3/uL 150-450 [facility] Poikilocytosis [Presence] in Blood by Light microscopyOrdered By: Marshall Dominguez on 07-10-2023 Poikilocytosis LM Ql (Bld) Slight [facility] Polychromasia [Presence] in Blood by Light microscopyOrdered By: Marshall Dominguez on 07-10-2023 Polychromasia LM Ql (Bld) Slight [facility] Potassium [Moles/volume] in Serum or PlasmaOrdered By: Marshall Dominguez on 07-10-2023 Potassium [Moles/Vol] 3.9 mmol/L 3.5-5.1 [facility] Protein Auto test strip (U) [Mass/Vol]Ordered By: Marshall Dominguez on 07-10-2023 Protein (U) [Mass/Vol] 30 mg/dL Negative [facility] Prothrombin time (PT)Ordered By: Marshall Dominguez on 07-10-2023 PT Coag (PPP) [Time] 10.6 s 9.0-12.9 [facility] Comment on above: A hematocrit value g reater than 55% may lead to inaccurate results in coagulation testing. Patients having hematocrit values >55% require a special collection tube for coagulation studies. Please contact the laboratory at [phone] for redraw instructions. RBC Auto (Bld) [#/Vol]Ordere d By: Marshall Dominguez on 07-10-2023 RBC (Bld) [#/Vol] 4.17 10*6/uL 3.60-5.00 [facility] RBC morphologyOrdered By: Ruslan Dominguez on 07-10-2023 RBC morphology finding Nom (Bld) N/A [facility] Serum or plasma anion gap de terminationOrdered By: Marshall Dominguez on 07-10-2023 Anion gap [Moles/Vol] 9.5 mmol/L 6.0-15.0 [facility] Sodium [Moles/volume] in Ser um or PlasmaOrdered By: Marshall Dominguez on 07-10-2023 Sodium [Moles/Vol] 143 mmol/L 136-145 [facility] Specific gravity Auto test s trip (U) [Rel density]Ordered By: Marshall Dominguez on 07-10-2023 Specific gravity (U) [Rel density] 1.022 1.001-1.03 0 [facility] Squamous epithelial cells de tection in urine sediment by light microscopyOrdered By: Marshall Dominguez on 07-10-2023 Epithelial cells.squamous LM Ql (Urine sed) 1-2 [HPF] 0-2 [facility] Teardrop cell detectionOrder ed By: Marshall Dominguez on 07-10-2023 Dacrocytes LM Ql (Bld) Slight [facility] Troponin I.cardiac [Mass/vol ume] in Serum or Plasma by Detection limit <= 0.01 ng/Ordered By: Marshall Dominguez on 07-10-2023 Troponin I.cardiac DL <= 0.01 ng/mL [Mass/Vol] 11.7 pg/mL 0.0-15.0 [facility] Urea nitrogen [Mass/volume] in Serum or PlasmaOrdered By: Marshall Dominguez on 07-10-2023 Urea nitrogen [Mass/Vol] 36 mg/dL 7-25 [facility] Urine bacteria detection by automated methodOrdered By: Marshall Dominguez on 07-10-2023 Bacteria Auto Ql (U) 2+ None Seen [facility] Urine clarity by refractomet ry automatedOrdered By: Marshall Dominguez on 07-10-2023 Clarity Refractometry automated (U) Cloudy Clear [facility] Urine culture routineOrdered By: Marshall Dominguez on 07-10-2023 Bacteria identified Cx Nom (U) Proteus mirabilis [facility] Urine glucose measurement by automated test strip (mass/volume)Ordered By: Marshall Dominguez on 07-10-2023 Glucose Auto test strip (U) [Mass/Vol] Normal mg/dL Normal [facility] Urine hemoglobin detection b y automated test stripOrdered By: Marshall Dominguez on 07-10-2023 Hemoglobin Auto test strip Ql (U) Negative Negative [facility] Urine leukocyte esterase det ection by automated test stripOrdered By: Marshall Dominguez on 07-10-2023 Leukocyte esterase Auto test strip Ql (U) 4+ Negative [facility] Urobilinogen Auto test strip (U) [Mass/Vol]Ordered By: Marshall Dominguez on 07-10-2023 Urobilinogen (U) [Mass/Vol] Normal mg/dL Normal [facility] WBC Auto (Bld) [#/Vol]Ordere d By: Marshall Dominguez on 07-10-2023 WBC (Bld) [#/Vol] 21.3 10*3/uL 3.8-11.6 [facility] pH Auto test strip (U)Ordere d By: Marshall Dominguez on 07-10-2023 pH (U) 8.5 [pH] 5.0-9.0 [facility] Alanine aminotransferase [En zymatic activity/volume] in Serum or PlasmaOrdered By: Kadie Jones on 06-17-2023 ALT [Catalytic activity/Vol] 14 U/L 7-52 [facility] Albumin [Mass/volume] in Ser um or Plasma by Bromocresol green (BCG) dye binding methoOrdered By: Kadie Bullimore on 06-17-2023 Albumin BCG dye [Mass/Vol] 3.4 g/dL 3.5-5.7 [facility] Alkaline phosphatase [Enzyma tic activity/volume] in Serum or PlasmaOrdered By: Kadie Bullimore on 06-17-2023 ALP [Catalytic activity/Vol] 48 U/L 34-104 [facility] Aspartate aminotransferase [ Enzymatic activity/volume] in Serum or PlasmaOrdered By: Kadie Bullimore on 06-17-2023 AST [Catalytic activity/Vol] 15 U/L 13-39 [facility] Basophils Auto (Bld) [#/Vol] Ordered By: Kadie Bullimore on 06-17-2023 Basophils (Bld) [#/Vol] 0.1 10*3/uL 0.0-0.2 [facility] Basophils/100 WBC Auto (Bld) Ordered By: Kadie Bullimore on 06-17-2023 Basophils/100 WBC (Bld) 0.3 % . [facility] Bilirubin.total [Mass/volume ] in Serum or PlasmaOrdered By: Kadie Bullimore on 06-17-2023 Bilirubin [Mass/Vol] 0.4 mg/dL 0.3-1.0 [facility] Calcium [Mass/volume] in Ser um or PlasmaOrdered By: Kadie Bullimore on 06-17-2023 Calcium [Mass/Vol] 9.5 mg/dL 8.6-10.3 [facility] Carbon dioxide, total [Moles /volume] in Serum or PlasmaOrdered By: Kadie Bullimore on 06-17-2023 CO2 [Moles/Vol] 34.6 mmol/L 21.0-31.0 [facility] Chloride [Moles/volume] in S kaevh or PlasmaOrdered By: Kadie Bullimore on 06-17-2023 Chloride [Moles/Vol] 104 mmol/L 98-107 [facility] Creatinine [Mass/volume] in Serum or PlasmaOrdered By: Kadie Bullimore on 06-17-2023 Creatinine [Mass/Vol] 1.24 mg/dL 0.60-1.20 [facility] Eosinophils Auto (Bld) [#/Vo l]Ordered By: Kadie Jones on 06-17-2023 Eosinophils (Bld) [#/Vol] 0.0 10*3/uL 0.0-0.45 [facility] Eosinophils/100 WBC Auto (Bl d)Ordered By: Kadieruslan Jones on 06-17-2023 Eosinophils/100 WBC (Bld) 0.2 % . [facility] Erythrocyte distribution wid th Auto (RBC) [Ratio]Ordered By: Kadieruslan Jones on 06-17-2023 Erythrocyte distribution width (RBC) [Ratio] 21.5 % 11.9-15.3 [facility] Globulin Calc (S) [Mass/Vol] Ordered By: [facility] on 06-17-2023 Globulin (S) [Mass/Vol] 2.9 g/dL [facility] Glucose [Mass/volume] in Ser um or PlasmaOrdered By: [facility]adieruslan [facility] on 06-17-2023 Glucose [Mass/Vol] 103 mg/dL 70-100 [facility] Comment on above: ADA recommended refe rence rangeRandom Glucose Reference Range is dependent on time and content of last meal. Glucose of more than 200 mg/dL in a nonstressed, ambulatory subject supports the diagnosis of Diabetes Mellitus. Hematocrit Auto (Bld) [Volum e fraction]Ordered By: Kadie Jones on 06-17-2023 Hematocrit (Bld) [Volume fraction] 34.6 % 34.0-46.4 [facility] Hemoglobin [Mass/volume] in BloodOrdered By: Kadie Jones on 06-17-2023 Hemoglobin (Bld) [Mass/Vol] 10.9 g/dL 11.8-15.4 [facility] Leukocytes [#/volume] correc juma for nucleated erythrocytes in Blood by Automated counOrdered By: Kadieruslan Jones on 06-17-2023 WBC corrected for nucl RBC Auto (Bld) [#/Vol] 17.4 10*3/uL 3.8-11.6 [facility] Lymphocytes Auto (Bld) [#/Vo l]Ordered By: Kadieruslan Jones on 06-17-2023 Lymphocytes (Bld) [#/Vol] 3.7 10*3/uL 1.00-4.8 [facility] Lymphocytes/100 WBC Auto (Bl d)Ordered By: Kadie Bullimore on 06-17-2023 Lymphocytes/100 WBC (Bld) 21.2 % . [facility] MCH Auto (RBC) [Entitic mass ]Ordered By: Kadie Bullimore on 06-17-2023 MCH (RBC) [Entitic mass] 24.8 pg 24.7-34.3 [facility] MCHC Auto (RBC) [Mass/Vol]Or dered By: Kadie Bullimore on 06-17-2023 MCHC (RBC) [Mass/Vol] 31.5 g/dL 32.0-35.0 [facility] MCV Auto (RBC) [Entitic vol] Ordered By: Kadie Bullimore on 06-17-2023 MCV (RBC) [Entitic vol] 78.7 fL 80-100 [facility] Monocyte distribution width [Entitic volume] in Blood by AutomatedOrdered By: Kadie Bullimore on 06-17-2023 Monocyte distribution width Auto (Bld) [Entitic vol] 20.88 % 0.00-20.00 [facility] Comment on above: For adults in ED, MD W > 20.0 may be associated with a higher risk of sepsis during the first 12 hrs of hospital admission Monocytes Auto (Bld) [#/Vol] Ordered By: Kadie Bullimore on 06-17-2023 Monocytes (Bld) [#/Vol] 1.1 10*3/uL 0.0-0.8 [facility] Monocytes/100 WBC Auto (Bld) Ordered By: Kadie Bullimore on 06-17-2023 Monocytes/100 WBC (Bld) 6.6 % . [facility] Natriuretic peptide B [Mass/ Vol]Ordered By: Kadie Bullimore on 06-17-2023 Natriuretic peptide B (Bld) [Mass/Vol] 109.0 pg/mL 5-100 [facility] Neutrophils Auto (Bld) [#/Vo l]Ordered By: Kadie Bullimore on 06-17-2023 Neutrophils (Bld) [#/Vol] 12.4 10*3/uL 1.8-7.7 [facility] Neutrophils/100 WBC Auto (Bl d)Ordered By: Kadie Abhilashimore on 06-17-2023 Neutrophils/100 WBC (Bld) 71.7 % . [facility] No Panel InformationOrdered By: Kadie Bullimore on 06-17-2023 Estimated GFR (CKD-EPI) 44.823 mL/Min [facility] Creatinine Clearance (Chem 35.64 [facility] Nucleated erythrocytes [Pres ence] in Blood by Automated countOrdered By: Kadie Bullimore on 06-17-2023 Nucleated RBC Auto Ql (Bld) 0.1 /100{WBC} 0-0.5 [facility] Platelet mean volume Auto (B ld) [Entitic vol]Ordered By: Kadie Bullimore on 06-17-2023 Platelet mean volume (Bld) [Entitic vol] 7.4 fL 6.3-10.7 [facility] Platelets Auto (Bld) [#/Vol] Ordered By: Kadie Bullimore on 06-17-2023 Platelets (Bld) [#/Vol] 257 10*3/uL 150-450 [facility] Potassium [Moles/volume] in Serum or PlasmaOrdered By: Kadie Bullimore on 06-17-2023 Potassium [Moles/Vol] 3.7 mmol/L 3.5-5.1 [facility] Protein [Mass/volume] in Ser um or PlasmaOrdered By: Kadie Bullimore on 06-17-2023 Protein [Mass/Vol] 6.3 g/dL 6.4-8.9 [facility] RBC Auto (Bld) [#/Vol]Ordere d By: Kadie Bullimore on 06-17-2023 RBC (Bld) [#/Vol] 4.39 10*6/uL 3.60-5.00 [facility] Serum or plasma albumin/glob ulin mass ratioOrdered By: Kadie Bullimore on 06-17-2023 Albumin/Globulin [Mass ratio] 1.2 {ratio} [facility] Serum or plasma anion gap de terminationOrdered By: Kadie Bullimore on 06-17-2023 Anion gap [Moles/Vol] 8.1 mmol/L 6.0-15.0 [facility] Sodium [Moles/volume] in Ser um or PlasmaOrdered By: Kadie Jones on 06-17-2023 Sodium [Moles/Vol] 143 mmol/L 136-145 [facility] Troponin I.cardiac [Mass/vol ume] in Serum or Plasma by Detection limit <= 0.01 ng/Ordered By: Kadie Jones on 06-17-2023 Troponin I.cardiac DL <= 0.01 ng/mL [Mass/Vol] 9.5 pg/mL 0.0-15.0 [facility] Urea nitrogen [Mass/volume] in Serum or PlasmaOrdered By: Kadie Jones on 06-17-2023 Urea nitrogen [Mass/Vol] 25 mg/dL 7-25 [facility] WBC Auto (Bld) [#/Vol]Ordere d By: Kadie Jones on 06-17-2023 WBC (Bld) [#/Vol] 17.4 10*3/uL 3.8-11.6 [facility] Anisocytosis LM Ql (Bld)Orde red By: Carla Hagan on 12-31-2022 Anisocytosis Ql (Bld) Moderate [facility] Basophils Auto (Bld) [#/Vol] Ordered By: Carla Hagan on 12-31-2022 Basophils (Bld) [#/Vol] N/A [facility] Basophils/100 WBC Auto (Bld) Ordered By: Carla Hagan on 12-31-2022 Basophils/100 WBC (Bld) N/A [facility] Basophils/100 WBC Manual cnt (Bld)Ordered By: Carla Hagan on 12-31-2022 Basophils/100 WBC (Bld) 1 % 0-2 [facility] Calcium [Mass/volume] in Ser um or PlasmaOrdered By: Carla Hagan on 12-31-2022 Calcium [Mass/Vol] 8.6 mg/dL 8.2-10.2 [facility] Carbon dioxide, total [Moles /volume] in Serum or PlasmaOrdered By: Carla Hagan on 12-31-2022 CO2 [Moles/Vol] 26.2 mmol/L 22.0-30.0 [facility] Chloride [Moles/volume] in S kaveh or PlasmaOrdered By: Carla Hagan on 12-31-2022 Chloride [Moles/Vol] 99 mmol/L 95-114 [facility] Creatinine and Glomerular fi ltration rate.predicted panel (S/P/Bld)Ordered By: Carla Hagan on 12-31-2022 Creatinine [Mass/Vol] 0.99 mg/dL 0.44-1.03 [facility] Eosinophils Auto (Bld) [#/Vo l]Ordered By: Carla Hagan on 12-31-2022 Eosinophils (Bld) [#/Vol] N/A [facility] Eosinophils/100 WBC Auto (Bl d)Ordered By: Carla Hagan on 12-31-2022 Eosinophils/100 WBC (Bld) N/A [facility] Eosinophils/100 WBC Manual c nt (Bld)Ordered By: Carla Hagan on 12-31-2022 Eosinophils/100 WBC (Bld) 1 % 1-3 [facility] Erythrocyte distribution wid th Auto (RBC) [Ratio]Ordered By: Carla Hagan on 12-31-2022 Erythrocyte distribution width (RBC) [Ratio] 15.7 % 11.9-15.3 [facility] Estimated glomerular filtrat ion rate (GFR) non- AmericanOrdered By: Carla Hagan on 12-31-2022 GFR/1.73 sq M.predicted among non-blacks MDRD (S/P/Bld) [Vol rate/Area] 54 mL/Min [facility] Giant platelets/100 leukocyt es [Ratio] in Blood by Manual countOrdered By: Carla Hagan on 12-31-2022 Giant platelets/100 WBC Manual cnt (Bld) [Ratio] 1 /100{WBC} [facility] Glucose [Mass/volume] in Ser um or PlasmaOrdered By: Carla Hagan on 12-31-2022 Glucose [Mass/Vol] 115 mg/dL 70-100 [facility] Comment on above: ADA recommended refe rence rangeRandom Glucose Reference Range is dependent on time and content of last meal. Glucose of more than 200 mg/dL in a nonstressed, ambulatory subject supports the diagnosis of Diabetes Mellitus. Helmet cell detectionOrdered By: Carla Hagan on 12-31-2022 Helmet cells LM Ql (Bld) Slight [facility] Hematocrit Auto (Bld) [Volum e fraction]Ordered By: Carla Hagan on 12-31-2022 Hematocrit (Bld) [Volume fraction] 30.2 % 34.0-46.4 [facility] Hemoglobin [Mass/volume] in BloodOrdered By: Carla Hagan on 12-31-2022 Hemoglobin (Bld) [Mass/Vol] 9.8 g/dL 11.8-15.4 [facility] Hypochromia LM Ql (Bld)Order ed By: Carla Hagan on 12-31-2022 Hypochromia Ql (Bld) Slight [facility] Laboratory - Chemistry and C hemistry - challengeOrdered By: Carla Hagan on 12-31-2022 Magnesium [Mass/Vol] 1.5 mg/dL 1.6-2.6 [facility] Leukocytes [#/volume] correc juma for nucleated erythrocytes in Blood by Automated counOrdered By: Carla Hagan on 12-31-2022 WBC corrected for nucl RBC Auto (Bld) [#/Vol] 13.4 10*3/uL 3.8-11.6 [facility] Lymphocytes Auto (Bld) [#/Vo l]Ordered By: Carla Hagan on 12-31-2022 Lymphocytes (Bld) [#/Vol] N/A [facility] Lymphocytes/100 WBC Auto (Bl d)Ordered By: Carla Hagan on 12-31-2022 Lymphocytes/100 WBC (Bld) N/A [facility] Lymphocytes/100 WBC Manual c nt (Bld)Ordered By: Carla Hagan on 12-31-2022 Lymphocytes/100 WBC (Bld) 8 % 18-42 [facility] MCH Auto (RBC) [Entitic mass ]Ordered By: Carla Hagan on 12-31-2022 MCH (RBC) [Entitic mass] 25.3 pg 24.7-34.3 [facility] MCHC Auto (RBC) [Mass/Vol]Or dered By: Carla Hagan on 12-31-2022 MCHC (RBC) [Mass/Vol] 32.3 g/dL 32.0-35.0 [facility] MCV Auto (RBC) [Entitic vol] Ordered By: Carla Hagan on 12-31-2022 MCV (RBC) [Entitic vol] 78.2 fL 80-100 [facility] Microcytes LM Ql (Bld)Ordere d By: Carla Hagan on 12-31-2022 Microcytes Ql (Bld) Moderate [facility] Monocytes Auto (Bld) [#/Vol] Ordered By: Carla Hagan on 12-31-2022 Monocytes (Bld) [#/Vol] N/A [facility] Monocytes/100 WBC Auto (Bld) Ordered By: Carla Hagan on 12-31-2022 Monocytes/100 WBC (Bld) N/A [facility] Monocytes/100 WBC Manual cnt (Bld)Ordered By: Carla Hagan on 12-31-2022 Monocytes/100 WBC (Bld) 5 % 2-11 [facility] Neutrophils Auto (Bld) [#/Vo l]Ordered By: Carla Hagan on 12-31-2022 Neutrophils (Bld) [#/Vol] N/A [facility] Neutrophils/100 WBC Auto (Bl d)Ordered By: Carla Hagan on 12-31-2022 Neutrophils/100 WBC (Bld) N/A [facility] No Panel InformationOrdered By: Carla Hagan on 12-31-2022 Estimated GFR () > 60 mL/Min [facility] Comment on above: GFR estimated refere nce range: According to KDOQI guidelines, <60 ml/min/1.73m2 is sufficient to diagnose a patient with chronic kidney disease. Pharmacy Creatinine Clearance (Chem 45.60 [facility] Nucleated erythrocytes [Pres ence] in Blood by Automated countOrdered By: Carla Hagan on 12-31-2022 Nucleated RBC Auto Ql (Bld) N/A [facility] Phosphate [Mass/volume] in S kaveh or PlasmaOrdered By: Carla Hagan on 12-31-2022 Phosphate [Mass/Vol] 3.5 mg/dL 2.5-4.6 [facility] Platelet adequacy [Presence] in Blood by Light microscopyOrdered By: Carla Hagan on 12-31-2022 Platelets LM Ql (Bld) Normal Normal [facility] Platelet mean volume Auto (B ld) [Entitic vol]Ordered By: Carla Hagan on 12-31-2022 Platelet mean volume (Bld) [Entitic vol] 6.6 fL 6.3-10.7 [facility] Platelet morphology finding [Identifier] in BloodOrdered By: Carla Hagan on 12-31-2022 Platelet morphology finding Nom (Bld) Normal Normal [facility] Platelets Auto (Bld) [#/Vol] Ordered By: Carla Hagan on 12-31-2022 Platelets (Bld) [#/Vol] 447 10*3/uL 150-450 [facility] Poikilocytosis [Presence] in Blood by Light microscopyOrdered By: Carla Hagan on 12-31-2022 Poikilocytosis LM Ql (Bld) Slight [facility] Polychromasia [Presence] in Blood by Light microscopyOrdered By: Carla Hagan on 12-31-2022 Polychromasia LM Ql (Bld) Slight [facility] Potassium [Moles/volume] in Serum or PlasmaOrdered By: Carla Hagan on 12-31-2022 Potassium [Moles/Vol] 4.1 mmol/L 3.5-5.1 [facility] RBC Auto (Bld) [#/Vol]Ordere d By: Carla Hagan on 12-31-2022 RBC (Bld) [#/Vol] 3.86 10*6/uL 3.60-5.00 [facility] RBC morphologyOrdered By: Ra carey Hagan on 12-31-2022 RBC morphology finding Nom (Bld) N/A [facility] Segmented neutrophils/100 WB C Manual cnt (Bld)Ordered By: Carla Hagan on 12-31-2022 Segmented neutrophils/100 WBC (Bld) 86 % 50-70 [facility] Serum or plasma anion gap de terminationOrdered By: Carla Hagan on 12-31-2022 Anion gap [Moles/Vol] 12.9 mmol/L 6.0-15.0 [facility] Sodium [Moles/volume] in Ser um or PlasmaOrdered By: Carla Hagan on 12-31-2022 Sodium [Moles/Vol] 134 mmol/L 136-146 [facility] Urea nitrogen [Mass/volume] in Serum or PlasmaOrdered By: Carla Hagan on 12-31-2022 Urea nitrogen [Mass/Vol] 18 mg/dL 9-23 [facility] WBC Auto (Bld) [#/Vol]Ordere d By: Carla Hagan on 12-31-2022 WBC (Bld) [#/Vol] 13.4 10*3/uL 3.8-11.6 [facility] Creatine kinase [Enzymatic a ctivity/volume] in Serum or PlasmaOrdered By: Carla Hagan on 12-28-2022 CK [Catalytic activity/Vol] 108 U/L 22-269 [facility] Automated epithelial cells c ount in urine sediment (number/area)Ordered By: Maddy Morrissey on 12-27-2022 Epithelial cells Auto (Urine sed) [#/Area] 3-4 [HPF] 0-2 [facility] Automated erythrocytes count in urine sediment (number/area)Ordered By: Maddy Morrissey on 12-27-2022 RBC Auto (Urine sed) [#/Area] 0-1 [HPF] 0-4 [facility] Automated leukocytes count i n urine sediment (number/area)Ordered By: Maddy Morrissey on 12-27-2022 WBC Auto (Urine sed) [#/Area] 5-9 [HPF] 0-4 [facility] Bilirubin Test strip Ql (U)O rdered By: Maddy Morrissey on 12-27-2022 Bilirubin Ql (U) Negative Negative [facility] Color Auto (U)Ordered By: Corwin Morrissey on 12-27-2022 Color (U) Yellow Yellow [facility] Folate [Mass/volume] in Seru m or PlasmaOrdered By: Eve Mann on 12-27-2022 Folate [Mass/Vol] ng/mL >5.9 [facility] Comment on above: Folate reference ran ge: >5.9 ng/mlThe WHO technical consultation on folate and vitamin [id number] has determined that folate concentrations lessthan 4 ng/ml are considered deficient. Ketones Auto test strip (U) [Mass/Vol]Ordered By: Maddy Morrissey on 12-27-2022 Ketones (U) [Mass/Vol] Negative Negative [facility] Laboratory - Chemistry and C hemistry - challengeOrdered By: Eve Mann on 12-27-2022 Cobalamin (Vitamin B12) [Mass/Vol] 994 pg/mL 180-914 [facility] Nitrite Test strip Ql (U)Ord ered By: Maddy Morrissey on 12-27-2022 Nitrite Ql (U) Positive Negative [facility] Protein Auto test strip (U) [Mass/Vol]Ordered By: Maddy Morrissey on 12-27-2022 Protein (U) [Mass/Vol] Trace mg/dL Negative F [facility] Specific gravity Auto test s trip (U) [Rel density]Ordered By: Maddy Morrissey on 12-27-2022 Specific gravity (U) [Rel density] > 1.050 1.001-1.03 0 [facility] Urine bacteria detection by automated methodOrdered By: Maddy Morrissey on 12-27-2022 Bacteria Auto Ql (U) 2+ None Seen [facility] Urine clarity by refractomet ry automatedOrdered By: Maddy Morrissey on 12-27-2022 Clarity Refractometry automated (U) Cloudy Clear [facility] Urine culture routineOrdered By: Maddy Morrissey on 12-27-2022 Bacteria identified Cx Nom (U) Escherichia coli [facility] Urine glucose measurement by automated test strip (mass/volume)Ordered By: Maddy Morrissey on 12-27-2022 Glucose Auto test strip (U) [Mass/Vol] Normal mg/dL Normal [facility] Urine hemoglobin detection b y automated test stripOrdered By: Maddy Morrissey on 12-27-2022 Hemoglobin Auto test strip Ql (U) Trace Negative [facility] Urine leukocyte esterase det ection by automated test stripOrdered By: Maddy Morrissey on 12-27-2022 Leukocyte esterase Auto test strip Ql (U) 3+ Negative [facility] Urobilinogen Auto test strip (U) [Mass/Vol]Ordered By: Maddy Morrissey on 12-27-2022 Urobilinogen (U) [Mass/Vol] Normal mg/dL Normal [facility] pH Auto test strip (U)Ordere d By: Maddy Morrissey on 12-27-2022 pH (U) 5.0 [pH] 5.0-9.0 [facility] Activated partial thrombopla stin time (aPTT) in platelet poor plasma by coagulation aOrdered By: Maddy Morrissey on 12-26-2022 aPTT Coag (PPP) [Time] 30.8 s 25.1-36.5 [facility] Basophils Auto (Bld) [#/Vol] Ordered By: Maddy Morrissey on 12-26-2022 Basophils (Bld) [#/Vol] 0.1 10*3/uL 0.0-0.2 [facility] Basophils/100 WBC Auto (Bld) Ordered By: Maddy Morrissey on 12-26-2022 Basophils/100 WBC (Bld) 0.5 % . [facility] Calcium [Mass/volume] in Ser um or PlasmaOrdered By: Maddy Morrissey on 12-26-2022 Calcium [Mass/Vol] 9.0 mg/dL 8.2-10.2 [facility] Carbon dioxide, total [Moles /volume] in Serum or PlasmaOrdered By: Maddy Morrissey on 12-26-2022 CO2 [Moles/Vol] 25.8 mmol/L 22.0-30.0 [facility] Chloride [Moles/volume] in S kaveh or PlasmaOrdered By: Maddy Morrissey on 12-26-2022 Chloride [Moles/Vol] 104 mmol/L 95-114 [facility] Creatinine and Glomerular fi ltration rate.predicted panel (S/P/Bld)Ordered By: Maddy Morrissey on 12-26-2022 Creatinine [Mass/Vol] 1.22 mg/dL 0.44-1.03 [facility] Eosinophils Auto (Bld) [#/Vo l]Ordered By: Maddy Morrissey on 12-26-2022 Eosinophils (Bld) [#/Vol] 0.1 10*3/uL 0.0-0.45 [facility] Eosinophils/100 WBC Auto (Bl d)Ordered By: Maddy Morrissey on 12-26-2022 Eosinophils/100 WBC (Bld) 1.1 % . [facility] Erythrocyte distribution wid th Auto (RBC) [Ratio]Ordered By: Maddy Morrissey on 12-26-2022 Erythrocyte distribution width (RBC) [Ratio] 15.9 % 11.9-15.3 [facility] Estimated glomerular filtrat ion rate (GFR) non- AmericanOrdered By: Maddy Morrissey on 12-26-2022 GFR/1.73 sq M.predicted among non-blacks MDRD (S/P/Bld) [Vol rate/Area] 43 mL/Min [facility] Glucose [Mass/volume] in Ser um or PlasmaOrdered By: Maddy Morrissey on 12-26-2022 Glucose [Mass/Vol] 128 mg/dL 70-100 [facility] Comment on above: ADA recommended refe rence rangeRandom Glucose Reference Range is dependent on time and content of last meal. Glucose of more than 200 mg/dL in a nonstressed, ambulatory subject supports the diagnosis of Diabetes Mellitus. Hematocrit Auto (Bld) [Volum e fraction]Ordered By: Maddy Morrissey on 12-26-2022 Hematocrit (Bld) [Volume fraction] 29.7 % 34.0-46.4 [facility] Hemoglobin [Mass/volume] in BloodOrdered By: Maddy Morrissey on 12-26-2022 Hemoglobin (Bld) [Mass/Vol] 9.3 g/dL 11.8-15.4 [facility] Laboratory - Chemistry and C hemistry - challengeOrdered By: Maddy Morrissey on 12-26-2022 Natriuretic peptide B (Bld) [Mass/Vol] 49.0 pg/mL 5-100 [facility] Laboratory - CoagulationOrde red By: Maddy Morrissey on 03-01-2023 PT Coag (PPP) [Time] 14.5 s 9.0-12.9 [facility] Leukocytes [#/volume] correc juma for nucleated erythrocytes in Blood by Automated counOrdered By: Maddy Morrissey on 12-26-2022 WBC corrected for nucl RBC Auto (Bld) [#/Vol] 12.0 10*3/uL 3.8-11.6 [facility] Lymphocytes Auto (Bld) [#/Vo l]Ordered By: Maddy Morrissey on 12-26-2022 Lymphocytes (Bld) [#/Vol] 3.0 10*3/uL 1.00-4.8 [facility] Lymphocytes/100 WBC Auto (Bl d)Ordered By: Maddy Morrissey on 12-26-2022 Lymphocytes/100 WBC (Bld) 24.8 % . [facility] MCH Auto (RBC) [Entitic mass ]Ordered By: Maddy Morrissey on 12-26-2022 MCH (RBC) [Entitic mass] 24.8 pg 24.7-34.3 [facility] MCHC Auto (RBC) [Mass/Vol]Or dered By: Maddy Morrissey on 12-26-2022 MCHC (RBC) [Mass/Vol] 31.2 g/dL 32.0-35.0 [facility] MCV Auto (RBC) [Entitic vol] Ordered By: Maddy Morrissey on 12-26-2022 MCV (RBC) [Entitic vol] 79.4 fL 80-100 [facility] Monocyte distribution width [Entitic volume] in Blood by AutomatedOrdered By: Maddy Morrissey on 12-26-2022 Monocyte distribution width Auto (Bld) [Entitic vol] 20.22 % 0.00-20.00 [facility] Comment on above: For adults in ED, MD W > 20.0 may be associated with a higher risk of sepsis during the first 12 hrs of hospital admission Monocytes Auto (Bld) [#/Vol] Ordered By: Maddy Morrissey on 12-26-2022 Monocytes (Bld) [#/Vol] 1.2 10*3/uL 0.0-0.8 [facility] Monocytes/100 WBC Auto (Bld) Ordered By: Maddy Morrissey on 12-26-2022 Monocytes/100 WBC (Bld) 10.1 % . [facility] Neutrophils Auto (Bld) [#/Vo l]Ordered By: Maddy Morrissey on 12-26-2022 Neutrophils (Bld) [#/Vol] 7.6 10*3/uL 1.8-7.7 [facility] Neutrophils/100 WBC Auto (Bl d)Ordered By: Maddy Morrissey on 12-26-2022 Neutrophils/100 WBC (Bld) 63.5 % . [facility] No Panel InformationOrdered By: Maddy Morrissey on 12-26-2022 Estimated GFR () 52 mL/Min [facility] Comment on above: GFR estimated refere nce range: According to KDOQI guidelines, <60 ml/min/1.73m2 is sufficient to diagnose a patient with chronic kidney disease. Pharmacy Creatinine Clearance (Chem 37.20 [facility] Nucleated erythrocytes [Pres ence] in Blood by Automated countOrdered By: Maddy Morrissey on 12-26-2022 Nucleated RBC Auto Ql (Bld) 0.1 /100{WBC} 0-0.5 [facility] Platelet mean volume Auto (B ld) [Entitic vol]Ordered By: Maddy Morrissey on 12-26-2022 Platelet mean volume (Bld) [Entitic vol] 6.5 fL 6.3-10.7 [facility] Platelet poor plasma interna tional normalized ratio (INR) by coagulation assay (relatOrdered By: Maddy Morrissey on 12-26-2022 INR Coag (PPP) [Relative time] 1.3 {INR} [facility] Comment on above: INR Therapeutic Rang [...] 12-26-2022 Platelets (Bld) [#/Vol] 450 10*3/uL 150-450 [facility] Potassium [Moles/volume] in Serum or PlasmaOrdered By: Maddy Morrissey on 12-26-2022 Potassium [Moles/Vol] 3.9 mmol/L 3.5-5.1 [facility] RBC Auto (Bld) [#/Vol]Ordere d By: Maddy Morrissey on 12-26-2022 RBC (Bld) [#/Vol] 3.74 10*6/uL 3.60-5.00 [facility] Serum or plasma anion gap de terminationOrdered By: Maddy Morrissey on 12-26-2022 Anion gap [Moles/Vol] 10.1 mmol/L 6.0-15.0 [facility] Sodium [Moles/volume] in Ser um or PlasmaOrdered By: Maddy Morrissey on 12-26-2022 Sodium [Moles/Vol] 136 mmol/L 136-146 [facility] Troponin I.cardiac [Mass/vol ume] in Serum or Plasma by High sensitivity methodOrdered By: Maddy Morrissey on 12-26-2022 Troponin I.cardiac High sensitivity method [Mass/Vol] 6 pg/mL 0-15 [facility] Urea nitrogen [Mass/volume] in Serum or PlasmaOrdered By: Maddy Morrissey on 12-26-2022 Urea nitrogen [Mass/Vol] 21 mg/dL 9-23 [facility] WBC Auto (Bld) [#/Vol]Ordere d By: Maddy Morrissey on 12-26-2022 WBC (Bld) [#/Vol] 12.0 10*3/uL 3.8-11.6 [facility] Basophils Auto (Bld) [#/Vol] Ordered By: Hilario Yeung on 05-31-2022 Basophils (Bld) [#/Vol] 0.0 10*3/uL 0.0-0.2 [facility] Basophils/100 WBC Auto (Bld) Ordered By: Hilario Yeung on 05-31-2022 Basophils/100 WBC (Bld) 0.7 % . [facility] Blood hemoglobin measurement (mass/volume)Ordered By: Hilario Yeung on 05-31-2022 Hemoglobin (Bld) [Mass/Vol] 11.6 g/dL 11.8-15.4 [facility] Blood leukocytes automated c ount (number/volume)Ordered By: Hilario Yeung on 05-31-2022 WBC (Bld) [#/Vol] 5.9 10*3/uL 4.5-11.0 [facility] Creatinine and Glomerular fi ltration rate.predicted panel (S/P/Bld)Ordered By: Hilario Yeung on 05-31-2022 Creatinine [Mass/Vol] 1.22 mg/dL 0.44-1.03 [facility] Eosinophils Auto (Bld) [#/Vo l]Ordered By: Hilario Yeung on 05-31-2022 Eosinophils (Bld) [#/Vol] 0.3 10*3/uL 0.0-0.45 [facility] Eosinophils/100 WBC Auto (Bl d)Ordered By: Hilario Yeung on 05-31-2022 Eosinophils/100 WBC (Bld) 4.4 % . [facility] Erythrocyte distribution wid th Auto (RBC) [Ratio]Ordered By: Hilario Yeung on 05-31-2022 Erythrocyte distribution width (RBC) [Ratio] 16.9 % 11.9-15.3 [facility] Estimated glomerular filtrat ion rate (GFR) non- AmericanOrdered By: Hilario Yeung on 05-31-2022 GFR/1.73 sq M.predicted among non-blacks MDRD (S/P/Bld) [Vol rate/Area] 43 mL/Min [facility] Hematocrit Auto (Bld) [Volum e fraction]Ordered By: Hilario Yeung on 05-31-2022 Hematocrit (Bld) [Volume fraction] 36.6 % 34.0-46.4 [facility] Laboratory - Hematology and Cell countsOrdered By: Hilario Yeung on 05-31-2022 Nucleated RBC/100 WBC (Bld) [Ratio] 0.1 % 0-0.5 [facility] Lymphocytes Auto (Bld) [#/Vo l]Ordered By: Hilario Yeung on 05-31-2022 Lymphocytes (Bld) [#/Vol] 2.4 10*3/uL 1.00-4.8 [facility] Lymphocytes/100 WBC Auto (Bl d)Ordered By: Hilario Yeung on 05-31-2022 Lymphocytes/100 WBC (Bld) 41.3 % . [facility] MCH Auto (RBC) [Entitic mass ]Ordered By: Hilario Yeung on 05-31-2022 MCH (RBC) [Entitic mass] 25.8 pg 24.7-34.3 [facility] MCHC Auto (RBC) [Mass/Vol]Or dered By: Hilario Yeung on 05-31-2022 MCHC (RBC) [Mass/Vol] 31.7 g/dL 32.0-35.0 [facility] MCV Auto (RBC) [Entitic vol] Ordered By: Hilario Yeung on 05-31-2022 MCV (RBC) [Entitic vol] 81.4 fL 80-100 [facility] Monocytes Auto (Bld) [#/Vol] Ordered By: Hilario Yeung on 05-31-2022 Monocytes (Bld) [#/Vol] 0.6 10*3/uL 0.0-0.8 [facility] Monocytes/100 WBC Auto (Bld) Ordered By: Hilario Yeung on 05-31-2022 Monocytes/100 WBC (Bld) 10.6 % . [facility] Neutrophils Auto (Bld) [#/Vo l]Ordered By: Hilario Yeung on 05-31-2022 Neutrophils (Bld) [#/Vol] 2.5 10*3/uL 1.8-7.7 [facility] Neutrophils/100 WBC Auto (Bl d)Ordered By: Hilario Yeung on 05-31-2022 Neutrophils/100 WBC (Bld) 43.0 % . [facility] No Panel InformationOrdered By: Hilario Yeung on 05-31-2022 Estimated GFR () 52 mL/Min [facility] Comment on above: GFR estimated refere nce range: According to KDOQI guidelines, <60 ml/min/1.73m2 is sufficient to diagnose a patient with chronic kidney disease. Pharmacy Creatinine Clearance (Chem 39.11 [facility] Platelet mean volume Auto (B ld) [Entitic vol]Ordered By: Hilario Yeung on 05-31-2022 Platelet mean volume (Bld) [Entitic vol] 7.5 fL 6.3-10.7 [facility] Platelets Auto (Bld) [#/Vol] Ordered By: Hilario Yeung on 05-31-2022 Platelets (Bld) [#/Vol] 209 10*3/uL 150-450 [facility] RBC Auto (Bld) [#/Vol]Ordere d By: Hilario Yeung on 05-31-2022 RBC (Bld) [#/Vol] 4.50 10*6/uL 3.60-5.00 [facility] Serum or plasma calcium roly urement (mass/volume)Ordered By: Hilario Yeung on 05-31-2022 Calcium [Mass/Vol] 9.1 mg/dL 8.2-10.2 [facility] Serum or plasma chloride deirdre surement (moles/volume)Ordered By: Hilario Yeung on 05-31-2022 Chloride [Moles/Vol] 100 mmol/L 95-114 [facility] Serum or plasma glucose roly urement (mass/volume)Ordered By: Hilario Yeung on 05-31-2022 Glucose [Mass/Vol] 99 mg/dL 70-100 [facility] Comment on above: ADA recommended refe rence range Random Glucose Reference Range is dependent on time and content of last meal. Glucose of more than 200 mg/dL in a nonstressed, ambulatory subject supports the diagnosis of Diabetes Mellitus. Serum or plasma potassium me asurement (moles/volume)Ordered By: Hilario Yeung on 05-31-2022 Potassium [Moles/Vol] 4.2 mmol/L 3.5-5.1 [facility] Serum or plasma sodium measu rement (moles/volume)Ordered By: Hilario Yeung on 05-31-2022 Sodium [Moles/Vol] 138 mmol/L 136-146 [facility] Serum or plasma total carbon dioxide measurement (moles/volume)Ordered By: Hilario Yeung on 05-31-2022 CO2 [Moles/Vol] 29.7 mmol/L 22.0-30.0 [facility] Serum or plasma urea nitroge n measurement (mass/volume)Ordered By: Hilario Yeung on 05-31-2022 Urea nitrogen [Mass/Vol] 13 mg/dL 9- [facility] SCREENING MAMMOGRAM W/[place], BILATERAL*on 04-27-2022 SCREENING [...] VERY IMPORTANT TO YOUR HEALTH. THE CURRENT [employer] AND [employer]WORK GUIDELINES RECOMMENDS ANNUAL MAMMOGRAPHY BEGINNING AT AGE 40 THIS FACILITY USES A REMINDER SYSTEM TO ENSURE ALL PATIENTS RECEIVE REMINDER NOTIFICATIONS AT THE APPROPRIATE TIME BASED ON THE RECOMMENDATIONS OF THIS EXAM. Board Certified Radiologist. Accredited by the ACR and FDA. Report reported and signed by Edgar Hooper on 05/01/2022 [id number] Normal [facility] CT Low Dose Lung Screeningon 04-26-2022 CT [...] by Devonte Gomez on 04/27/2022 1239 Normal [facility] XR Hip Complete Left*on 02-25 XR Hip [...] by Wicho Bowman on 03/14/2022 1550 Normal [facility] XR Spine Lumbar 4+ Views*on 03-14-2022 XR [...] by Wicho Bowman on 03/14/2022 1546 Normal [facility] CNPTOUTREACHon 12-20-[address] [facility] Patient Outreach ([facility]) -- GERA PERDUE ([id number]) 1945 F Date Time Provider Department 12/20/20 DERICK LOPEZ During your visit today, we recorded the following information about you: Allergies As of Date: 12/20/2020 Noted Allergy Reaction ASPRIN (ASPIRIN) 03/02/2019 1 - Mental Status Change Date Reviewed: 05/04/2020 Reviewed by: Prasad Phillips - Fully Assessed Order(s):SARS-COVID VACCINE 1ST DOSE APPT [[id number]] Order #: [id number] FUTURE Prescriptions as of 12/20/2020 Sig: HYDROCODONE [...] [E66.9] 02/25/2015 Letter Text Encounter Status:Closed by [employer], PRODUSER on 12/23/20 [facility] PROGRESSon 05-03-2020 PROGRESS HNO ID: [id number] Author: Prasad Phillips Service: ? Author Type: Physician Type: Progress Notes Filed: 05/04/2020 8:19 PM Note Text: Gera Perdue : 1945 Skilled Nursing: [facility] PCP: guanako Date last seen: 04/2020 [...] [facility] CBC Auto Differentialon 10-0 Basophils (Bld) [#/Vol] 0.03 10*3/uL [place] Basophils/100 WBC (Bld) 0 % 0 - 2 % [place] Differential Type NOT REPORTED [place] Eosinophils (Bld) [#/Vol] 0.14 10*3/uL [place] Eosinophils/100 WBC (Bld) 2 % 1 - 4 % [place] Erythrocyte distribution width (RBC) [Ratio] 15.0 % High 11.8 - 14.4 % [place] Hematocrit (Bld) [Volume fraction] 32.7 % Low 36.3 - 47.1 % [place] Hemoglobin (Bld) [Mass/Vol] 9.9 g/dL Low 11.9 - 15.1 g/dL [place] Immature granulocytes (Bld) [#/Vol] 0.03 10*3/uL [place] Immature granulocytes (Bld) [#/Vol] 0 % 0 [place] Interpretation and review of laboratory results Abnormal [place] Lymphocytes (Bld) [#/Vol] 1.67 10*3/uL [place] Lymphocytes/100 WBC (Bld) 22 % Low 24 - 43 % [place] MCH (RBC) [Entitic mass] 27.7 pg 25.2 - 33.5 pg [place] MCHC (RBC) [Mass/Vol] 30.3 g/dL 28.4 - 34.8 g/dL [place] MCV (RBC) [Entitic vol] 91.3 fL 82.6 - 102.9 fL [place] Monocytes (Bld) [#/Vol] 1.00 10*3/uL [place] Monocytes/100 WBC (Bld) 13 % High 3 - 12 % [place] Platelet mean volume (Bld) [Entitic vol] 9.1 fL 8.1 - 13.5 fL [place] Platelets (Bld) [#/Vol] 184 10*3/uL [place] Platelets (Bld) [#/Vol] NOT REPORTED [place] RBC (Bld) [#/Vol] 3.58 10*6/uL Low 3.95 - 5.11 m/uL [place] RBC morphology finding Nom (Bld) ANISOCYTOSIS PRESENT [place] Segmented neutrophils/100 WBC (Bld) 63 % 36 - 65 % [place] Segs Absolute 4.63 [place] WBC (Bld) [#/Vol] 7.5 10*3/uL [place] WBC (Bld) [#/Vol] 0.0 10*3/uL 0.0 per 100 WBC [place] WBC Morphology NOT REPORTED [place] CBC with Diffon 08-04-2019 Abs. Basophil 0.03 k/uL Normal 0.00-0.20 [facility] Comment on above: Performed By: #### C DP #### [facility] [place] [address] Merchandise [employer]pper: Juan Perera MD Abs.Imm.Granulocyte 0.03 k/uL Normal 0.00-0.30 [facility] Comment on above: Performed By: #### C DP #### [place] [address] [employer]chandise [employer]pper: Juan Perera MD Abs.Neutrophil (Seg) 4.63 k/uL Normal 1.50-8.10 [facility] Comment on above: Performed By: #### C DP #### [place] [address] [employer]chandise [employer]pper: Juan Perera MD Basophils/100 WBC (Bld) 0 % Normal 0-2 [facility] Comment on above: Performed By: #### C DP #### [place] [address] [employer]ch[employer]ise [employer]pper: Juan Perera MD Eosinophils (Bld) [#/Vol] 0.14 10*3/uL Normal 0.00-0.44 [facility] Comment on above: Performed By: #### C DP #### [place] [address] [employer]chandise [employer]pper: Juan Perera MD Eosinophils/100 WBC (Bld) 2 % Normal 1-4 [facility] Comment on above: Performed By: #### C DP #### [place] [address] [employer]ch[employer]pper: Juan Perera MD Erythrocyte distribution width (RBC) [Ratio] 15.0 % High 11.8-14.4 [facility] Comment on above: Performed By: #### C DP #### [place] [address] [employer]ch[employer]ise [employer]pper: Juan Perera MD Hematocrit (Bld) [Volume fraction] 32.7 % Low 36.3-47.1 [facility] Comment on above: Performed By: #### C DP #### [address] [address] Merchandise [employer]pper: Juan Perera MD Hemoglobin (Bld) [Mass/Vol] 9.9 g/dL Low 11.9-15.1 [facility] Comment on above: Performed By: #### C DP #### [address] [address] [employer]chandise [employer]pper: Juan Perera MD Immature granulocytes (Bld) [#/Vol] 0 % Normal 0 [facility] Comment on above: Performed By: #### C DP #### [address] [address] Merchandise [employer]pper: Juan Perera MD Lymphocytes (Bld) [#/Vol] 1.67 10*3/uL Normal 1.10-3.70 [facility] Comment on above: Performed By: #### C DP #### [address] [address] [employer]ch[employer]pper: Juan Perera MD Lymphocytes/100 WBC (Bld) 22 % Low 24-43 [facility] Comment on above: Performed By: #### C DP #### [address] [address] [employer]ch[employer]pper: Juan Perera MD MCH (RBC) [Entitic mass] 27.7 pg Normal 25.2-33.5 [facility] Comment on above: Performed By: #### C DP #### [address] [address] [employer]chand[employer]pper: Juan Perera MD MCHC (RBC) [Mass/Vol] 30.3 g/dL Normal 28.4-34.8 [facility] Comment on above: Performed By: #### C DP #### [address] [address] [employer]chand[employer]pper: Juan Perera MD MCV (RBC) [Entitic vol] 91.3 fL Normal 82.6-102.9 [facility] Comment on above: Performed By: #### C DP #### [address] [address] [employer]ch[employer]pper: Juan Perera MD Monocytes (Bld) [#/Vol] 1.00 10*3/uL Normal 0.10-1.20 [facility] Comment on above: Performed By: #### C DP #### [address] [address] [employer]ch[employer]pper: Juan Perera MD Monocytes/100 WBC (Bld) 13 % High 3-12 [facility] Comment on above: Performed By: #### C DP #### [address] [address] [employer]ch[employer]pper: Juan Perera MD Neutrophil (Seg) 63 % Normal 36-65 [facility] Comment on above: Performed By: #### C DP #### [address] [address] [employer]chand[employer]pper: Juan Perera MD NRBC Automated 0.0 per 100 WBC Normal 0.0 [facility] Comment on above: Performed By: #### C DP #### [address] [address] Merchand[employer]pper: Juan Perera MD Platelet mean volume (Bld) [Entitic vol] 9.1 fL Normal 8.1-13.5 [facility] Comment on above: Performed By: #### C DP #### [address] [address] Merchand[employer]pper: Juan Perera MD Platelets (Bld) [#/Vol] 184 10*3/uL Normal 138-453 [facility] Comment on above: Performed By: #### C DP #### [address] [place] [address] Merchandise [employer]pper: Juan Perera MD RBC (Bld) [#/Vol] 3.58 10*6/uL Low 3.95-5.11 [facility] Comment on above: Performed By: #### C DP #### [address] [address] Merchandise [employer]pper: Juan Perera MD RBC morphology finding Nom (Bld) ANISOCYTOSIS PRESENT Normal [facility] Comment on above: Performed By: #### C DP #### [address] [address] [employer]chand[employer]pper: Juan Perera MD WBC (Bld) [#/Vol] 7.5 10*3/uL Normal 3.5-11.3 [facility] Comment on above: Performed By: #### C DP #### [address] [address] Merchandise Shopper: Juan Perera MD Auto Diff Performed NOT REPORTED Normal [facility] Comment on above: Performed By: #### C DP #### [address] [address] Merchandise [employer]pper: Juan Perera MD Platelets (Bld) [#/Vol] NOT REPORTED Normal [facility] Comment on above: Performed By: #### C DP #### [address] [address] Merchandise Shopper: Juan Perera MD WBC Morphology NOT REPORTED Normal [facility] Comment on above: Performed By: #### C DP #### [address] [address] Merchandise [employer]pper: Juan Perera MD CBC Auto Differentialon -0 Basophils (Bld) [#/Vol] 0.04 10*3/uL [place] Basophils/100 WBC (Bld) 1 % 0 - 2 % [place] Differential Type NOT REPORTED [place] Eosinophils (Bld) [#/Vol] 0.19 10*3/uL [place] Eosinophils/100 WBC (Bld) 2 % 1 - 4 % [place] Erythrocyte distribution width (RBC) [Ratio] 15.5 % High 11.8 - 14.4 % [place] Hematocrit (Bld) [Volume fraction] 37.6 % 36.3 - 47.1 % [place] Hemoglobin (Bld) [Mass/Vol] 11.4 g/dL Low 11.9 - 15.1 g/dL [place] Immature granulocytes (Bld) [#/Vol] 10*3/uL [place] Immature granulocytes (Bld) [#/Vol] 0 % 0 [place] Interpretation and review of laboratory results Abnormal [place] Lymphocytes (Bld) [#/Vol] 1.70 10*3/uL [place] Lymphocytes/100 WBC (Bld) 22 % Low 24 - 43 % [place] MCH (RBC) [Entitic mass] 27.8 pg 25.2 - 33.5 pg [place] MCHC (RBC) [Mass/Vol] 30.3 g/dL 28.4 - 34.8 g/dL [place] MCV (RBC) [Entitic vol] 91.7 fL 82.6 - 102.9 fL [place] Monocytes (Bld) [#/Vol] 0.92 10*3/uL [place] Monocytes/100 WBC (Bld) 12 % 3 - 12 % [place] Platelet mean volume (Bld) [Entitic vol] 9.4 fL 8.1 - 13.5 fL [place] Platelets (Bld) [#/Vol] NOT REPORTED [place] Platelets (Bld) [#/Vol] 199 10*3/uL [place] RBC (Bld) [#/Vol] 4.10 10*6/uL 3.95 - 5.11 m/uL [place] RBC morphology finding Nom (Bld) ANISOCYTOSIS PRESENT [place] Segmented neutrophils/100 WBC (Bld) 63 % 36 - 65 % [place] Segs Absolute 4.97 [place] WBC (Bld) [#/Vol] 0.0 10*3/uL 0.0 per 100 WBC [place] WBC (Bld) [#/Vol] 7.8 10*3/uL [place] WBC Morphology NOT REPORTED [place] CBC with Diffon 08-03-2019 Abs. Basophil 0.04 k/uL Normal 0.00-0.20 [facility] Comment on above: Performed By: #### C DP, CP #### [place] [address] Merchandise Shopper: Juan Perera MD Abs.Imm.Granulocyte <0.03 Normal 0.00-0.30 [facility] Comment on above: Performed By: #### C DP, CP #### [place] [address] Merchandise Shopper: Juan Perera MD Abs.Neutrophil (Seg) 4.97 k/uL Normal 1.50-8.10 [facility] Comment on above: Performed By: #### C DP, CP #### [address] [address] Merchandise [employer]pper: Juan Perera MD Basophils/100 WBC (Bld) 1 % Normal 0-2 [facility] Comment on above: Performed By: #### C DP, CP #### [address] [address] [employer]chand[employer]pper: Juan Perera MD Eosinophils (Bld) [#/Vol] 0.19 10*3/uL Normal 0.00-0.44 [facility] Comment on above: Performed By: #### C DP, CP #### [address] [place] [address] Merchandise Shopper: Juan Perera MD Eosinophils/100 WBC (Bld) 2 % Normal 1-4 [facility] Comment on above: Performed By: #### C DP, CP #### [address] [address] Merchandise [employer]pper: Juan Perera MD Erythrocyte distribution width (RBC) [Ratio] 15.5 % High 11.8-14.4 [facility] Comment on above: Performed By: #### C DP, CP #### [address] [address] Merchandise [employer]pper: Juan Perera MD Hematocrit (Bld) [Volume fraction] 37.6 % Normal 36.3-47.1 [facility] Comment on above: Performed By: #### C DP, CP #### [address] [address] Merchandise Shopper: Juan Perera MD Hemoglobin (Bld) [Mass/Vol] 11.4 g/dL Low 11.9-15.1 [facility] Comment on above: Performed By: #### C DP, CP #### [address] [address] [employer]chandise [employer]pper: Juan Perera MD Immature granulocytes (Bld) [#/Vol] 0 % Normal 0 [facility] Comment on above: Performed By: #### C DP, CP #### [address] [address] Merchandise [employer]pper: Juan Perera MD Lymphocytes (Bld) [#/Vol] 1.70 10*3/uL Normal 1.10-3.70 [facility] Comment on above: Performed By: #### C DP, CP #### [address] [address] Merchand[employer]pper: Juan Perera MD Lymphocytes/100 WBC (Bld) 22 % Low 24-43 [facility] Comment on above: Performed By: #### C DP, CP #### [address] [address] Merchandise [employer]pper: Juan Perera MD MCH (RBC) [Entitic mass] 27.8 pg Normal 25.2-33.5 [facility] Comment on above: Performed By: #### C DP, CP #### [address] [address] Merchand[employer]pper: Juan Perera MD MCHC (RBC) [Mass/Vol] 30.3 g/dL Normal 28.4-34.8 [facility] Comment on above: Performed By: #### C DP, CP #### [address] [address] [employer]chand[employer]pper: Juan Perera MD MCV (RBC) [Entitic vol] 91.7 fL Normal 82.6-102.9 [facility] Comment on above: Performed By: #### C DP, CP #### [address] [address] Merchandise [employer]pper: Juan Perera MD Monocytes (Bld) [#/Vol] 0.92 10*3/uL Normal 0.10-1.20 [facility] Comment on above: Performed By: #### C DP, CP #### [address] [address] Merchand[employer]pper: Juan Perera MD Monocytes/100 WBC (Bld) 12 % Normal 3-12 [facility] Comment on above: Performed By: #### C DP, CP #### [address] [address] Merchand[employer]pper: Juan Perera MD Neutrophil (Seg) 63 % Normal 36-65 [facility] Comment on above: Performed By: #### C DP, CP #### [address] [address] Merchandise [employer]pper: Juan Perera MD NRBC Automated 0.0 per 100 WBC Normal 0.0 [facility] Comment on above: Performed By: #### C DP, CP #### [address] [address] Merchand[employer]pper: Juan Perera MD Platelet mean volume (Bld) [Entitic vol] 9.4 fL Normal 8.1-13.5 [facility] Comment on above: Performed By: #### C DP, CP #### [address] [address] Merchand[employer]pper: Juan Perera MD Platelets (Bld) [#/Vol] 199 10*3/uL Normal 138-453 [facility] Comment on above: Performed By: #### C DP, CP #### [address] [address] [employer]chand[employer]pper: Juan Perera MD RBC (Bld) [#/Vol] 4.10 10*6/uL Normal 3.95-5.11 [facility] Comment on above: Performed By: #### C DP, CP #### [address] [address] Merchandise [employer]pper: Juan Perera MD RBC morphology finding Nom (Bld) ANISOCYTOSIS PRESENT Normal [facility] Comment on above: Performed By: #### C DP, CP #### [address] [address] Merchandise [employer]pper: Juan Perera MD WBC (Bld) [#/Vol] 7.8 10*3/uL Normal 3.5-11.3 [facility] Comment on above: Performed By: #### C DP, CP #### [address] [address] Merchandise [employer]pper: Juan Perera MD Auto Diff Performed NOT REPORTED Normal [facility] Comment on above: Performed By: #### C DP, CP #### [address] [address] Merchandise [employer]pper: Juan Perera MD Platelets (Bld) [#/Vol] NOT REPORTED Normal [facility] Comment on above: Performed By: #### C DP, CP #### [address] [address] Merchand[employer]pper: Juan Perera MD WBC Morphology NOT REPORTED Normal [facility] Comment on above: Performed By: #### C DP, CP #### [address] [address] Merchand[employer]pper: Juan Perera MD Comp Metabolic Profon 2018 (cont.) Normal [facility] Comment on above: Result Comment: Aver age GFR for 70 or more years old: 75 mL/min/1.73sq m Chronic Kidney Disease: <60 mL/min/1.73sq m Kidney failure: <15 mL/min/1.73sq m eGFR calculated using average adult body mass. Additional eGFR calculator available at: http://www.Clickslide.Cinsay/multiple_crcl_2012.htm Performed By: #### C DP, CP #### [address] [address] Merchandise [employer]pper: Juan Perera MD Albumin [Mass/Vol] 2.7 g/dL Low 3.5-5.2 [facility] Comment on above: Performed By: #### C DP, CP #### [address] [address] Merchandise [employer]pper: Juan Perera MD Albumin/Globulin [Mass ratio] 0.8 {ratio} Low 1.0-2.5 [facility] Comment on above: Performed By: #### C DP, CP #### [address] [address] Merchand[employer]pper: Juan Perera MD Alkaline Phos 65 U/L Normal 35-104 [facility] Comment on above: Performed By: #### C DP, CP #### [address] [address] [employer]chand[employer]pper: Juan Perera MD ALT [Catalytic activity/Vol] 8 U/L Normal 5-33 [facility] Comment on above: Performed By: #### C DP, CP #### [address] [address] Merchand[employer]pper: Juan Perera MD Anion gap [Moles/Vol] 12 mmol/L Normal 9-17 [facility] Comment on above: Performed By: #### C DP, CP #### [address] [address] [employer]chand[employer]pper: Juan Perera MD AST [Catalytic activity/Vol] 13 U/L Normal <32 [facility] Comment on above: Performed By: #### C DP, CP #### [address] [address] [employer]chand[employer]pper: Juan Perera MD Bilirubin Ql (U) 0.41 mg/dL Normal 0.3-1.2 [facility] Comment on above: Performed By: #### C DP, CP #### [address] [address] [employer]chand[employer]pper: Juan Perera MD Calcium [Mass/Vol] 8.3 mg/dL Low 8.6-10.4 [facility] Comment on above: Performed By: #### C DP, CP #### [address] [address] Merchandise [employer]pper: Juan Perera MD Chloride [Moles/Vol] 108 mmol/L High 98-107 [facility] Comment on above: Performed By: #### C DP, CP #### [address] [address] Merchandise [employer]pper: Juan Perera MD CO2 [Moles/Vol] 22 mmol/L Normal 20-31 [facility] Comment on above: Performed By: #### C DP, CP #### [address] [address] [employer]chand[employer]pper: Juan Perera MD Creatinine [Mass/Vol] 0.72 mg/dL Normal 0.50-0.90 [facility] Comment on above: Performed By: #### C DP, CP #### [address] [address] [employer]chand[employer]pper: Juan Perera MD GFR, Amer >60 Normal >60 [facility] Comment on above: Performed By: #### C DP, CP #### [address] [address] [employer]chand[employer]pper: Juan Perera MD GFR,non Amer >60 Normal >60 [facility] Comment on above: Performed By: #### C DP, CP #### [address] [address] [employer]chand[employer]pper: Juan Perera MD Glucose [Mass/Vol] 78 mg/dL Normal 70-99 [facility] Comment on above: Performed By: #### C DP, CP #### [address] [address] Merchandise Shopper: Juan Perera MD Potassium [Moles/Vol] 3.9 mmol/L Normal 3.7-5.3 [facility] Comment on above: Performed By: #### C DP, CP #### [address] [address] Merchandise Shopper: Juan Perera MD Protein [Mass/Vol] 6.2 g/dL Low 6.4-8.3 [facility] Comment on above: Performed By: #### C DP, CP #### [address] [address] Merchandise Shopper: Juan Perera MD Sodium [Moles/Vol] 142 mmol/L Normal 135-144 [facility] Comment on above: Performed By: #### C DP, CP #### [address] [address] Merchandise Shopper: Juan Perera MD Urea nitrogen [Mass/Vol] 11 mg/dL Normal 8- [facility] Comment on above: Performed By: #### C DP, CP #### [address] [address] Merchandise Shopper: Juan Perera MD BUN/CRE Ratio NOT REPORTED Normal - [facility] Comment on above: Performed By: #### C DP, CP #### [address] [address] Merchandise Shopper: Juan Perera MD Staging: NOT REPORTED Normal [facility] Comment on above: Performed By: #### C DP, CP #### [address] [address] Merchandise Shopper: Juan Perera MD Comprehensive Metabolic Pane [facility] 08-03-2019 Albumin [Mass/Vol] 2.7 g/dL Low 3.5 - 5.2 g/dL [place] Albumin/Globulin [Mass ratio] 0.8 {ratio} Low [place] ALP [Catalytic activity/Vol] 65 U/L 35 - 104 U/L [place] ALT [Catalytic activity/Vol] 8 U/L 5 - 33 U/L [place] Anion gap [Moles/Vol] 12 mmol/L 9 - 17 mmol/L [place] AST [Catalytic activity/Vol] 13 U/L <32 [place] Bilirubin Ql (U) 0.41 mg/dL 0.3 - 1.2 mg/dL [place] Bun/Cre Ratio NOT REPORTED [place] Calcium [Mass/Vol] 8.3 mg/dL Low 8.6 - 10. 4 mg/dL [place] Chloride [Moles/Vol] 108 mmol/L High 98 - 10 7 mmol/L [place] CO2 [Moles/Vol] 22 mmol/L 20 - 31 mmol/L [place] Creatinine [Mass/Vol] 0.72 mg/dL 0.5 - 0.9 mg/dL [place] GFR >60 >60 mL/min [place] GFR Non- >60 >60 mL/min [place] GFR/1.73 sq M predicted among non-blacks MDRD (S/P/Bld) [Vol rate/Area] NOT REPORTED [place] GFR/1.73 sq M predicted among non-blacks MDRD (S/P/Bld) [Vol rate/Area] [place] Comment on above: Average GFR for 70 o r more years old: 75 mL/min/1.73sq m Chronic Kidney Disease: <60 mL/min/1.73sq m Kidney failure: <15 mL/min/1.73sq m eGFR calculated using average adult body mass. Additional eGFR calculator available at: http://www.Clickslide.Cinsay/multiple_crcl_2012.htm Glucose [Mass/Vol] 78 mg/dL 70 - 99 mg/dL [place] Interpretation and review of laboratory results Abnormal [place] Potassium [Moles/Vol] 3.9 mmol/L 3.7 - 5.3 mmol/L [place] Protein [Mass/Vol] 6.2 g/dL Low 6.4 - 8.3 g/dL [place] Sodium [Moles/Vol] 142 mmol/L 135 - 144 mmol/L [place] Urea nitrogen [Mass/Vol] 11 mg/dL 8 - 23 mg/dL [place] XR ABDOMEN (KUB) (SINGLE AP VIEW)on [...] Martin Hope MD 08/03/19 Final result Normal [facility] Nonspecific bowel ga s pattern. [place] Robert, Mhpn Incoming R adiant Results From [employer] - 08/03/2019 9:28 AM EDT EXAMINATION: ONE SUPINE XRAY VIEW(S) OF THE ABDOMEN 08/03/2019 9:06 am COMPARISON: 08/02/2019 HISTORY: ORDERING SYSTEM PROVIDED HISTORY: SBO TECHNOLOGIST PROVIDED HISTORY: SBO Reason for Exam: supine FINDINGS: Nonspecific bowel gas pattern. No pathologic bowel dilatation. Gas throughout the colon. Rectal gas. Enteric tube within the stomach. No organomegaly. No suspicious calcifications. IMPRESSION: Nonspecific bowel gas pattern. [place] EXAMINATION: ONE SUP INE XRAY VIEW(S) OF THE ABDOMEN 08/03/2019 9:06 am COMPARISON: 08/02/2019 HISTORY: ORDERING SYSTEM PROVIDED HISTORY: SBO TECHNOLOGIST PROVIDED HISTORY: SBO Reason for Exam: supine FINDINGS: Nonspecific bowel gas pattern. No pathologic bowel dilatation. Gas throughout the colon. Rectal gas. Enteric tube within the stomach. No organomegaly. No suspicious calcifications. [place] CBC Auto Differentialon 10-0 Basophils (Bld) [#/Vol] 0.03 10*3/uL [place] Basophils/100 WBC (Bld) 0 % 0 - 2 % [place] Differential Type NOT REPORTED [place] Eosinophils (Bld) [#/Vol] 0.17 10*3/uL [place] Eosinophils/100 WBC (Bld) 2 % 1 - 4 % [place] Erythrocyte distribution width (RBC) [Ratio] 15.6 % High 11.8 - 14.4 % [place] Hematocrit (Bld) [Volume fraction] 36.3 % 36.3 - 47.1 % [place] Hemoglobin (Bld) [Mass/Vol] 11.7 g/dL Low 11.9 - 15.1 g/dL [place] Immature granulocytes (Bld) [#/Vol] 0 % 0 [place] Immature granulocytes (Bld) [#/Vol] 0.03 10*3/uL [place] Interpretation and review of laboratory results Abnormal [place] Lymphocytes (Bld) [#/Vol] 1.85 10*3/uL [place] Lymphocytes/100 WBC (Bld) 20 % Low 24 - 43 % [place] MCH (RBC) [Entitic mass] 27.9 pg 25.2 - 33.5 pg [place] MCHC (RBC) [Mass/Vol] 32.2 g/dL 28.4 - 34.8 g/dL [place] MCV (RBC) [Entitic vol] 86.6 fL 82.6 - 102.9 fL [place] Monocytes (Bld) [#/Vol] 1.08 10*3/uL [place] Monocytes/100 WBC (Bld) 12 % 3 - 12 % [place] Platelet mean volume (Bld) [Entitic vol] 9.3 fL 8.1 - 13.5 fL [place] Platelets (Bld) [#/Vol] 215 10*3/uL [place] Platelets (Bld) [#/Vol] NOT REPORTED [place] RBC (Bld) [#/Vol] 4.19 10*6/uL 3.95 - 5.11 m/uL [place] RBC morphology finding Nom (Bld) ANISOCYTOSIS PRESENT [place] Segmented neutrophils/100 WBC (Bld) 66 % High 36 - 65 % [place] Segs Absolute 6.12 [place] WBC (Bld) [#/Vol] 9.3 10*3/uL [place] WBC (Bld) [#/Vol] 0.0 10*3/uL 0.0 per 100 WBC [place] WBC Morphology NOT REPORTED [place] CBC with Diffon 08-02-2019 Abs. Basophil 0.03 k/uL Normal 0.00-0.20 [facility] Comment on above: Performed By: #### L ACWB CDP, REJEC #### [address] [address] Merchandise Shopper: Juan Perera MD Abs.Imm.Granulocyte 0.03 k/uL Normal 0.00-0.30 [facility] Comment on above: Performed By: #### L ACARAMIS GARY, REJEC #### [address] [address] Merchandise Shopper: Juan Perera MD Abs.Neutrophil (Seg) 6.12 k/uL Normal 1.50-8.10 [facility] Comment on above: Performed By: #### L ACWB CDP, REJEC #### [facility] [address] [place] [address] Merchandise Shopper: Juan Perera MD Basophils/100 WBC (Bld) 0 % Normal 0-2 [facility] Comment on above: Performed By: #### L ACWB CDP, REJEC #### [facility] [address] [place] [address] Merchandise Shopper: Juan Perera MD Eosinophils (Bld) [#/Vol] 0.17 10*3/uL Normal 0.00-0.44 [facility] Comment on above: Performed By: #### L ACWSandi CDP, REJEC #### [address] [address] Merchandise Shopper: Juan Perera MD Eosinophils/100 WBC (Bld) 2 % Normal 1-4 [facility] Comment on above: Performed By: #### L ACABDIRAHMAN CDP, REJEC #### [address] [address] Merchandise Shopper: Juan Perera MD Immature granulocytes (Bld) [#/Vol] 0 % Normal 0 [facility] Comment on above: Performed By: #### L ACWSandi CDP, REJEC #### [facility] [address] [place] [address] Merchandise Shopper: Juan Perera MD Lymphocytes (Bld) [#/Vol] 1.85 10*3/uL Normal 1.10-3.70 [facility] Comment on above: Performed By: #### L ACWSandi CDP, REJEC #### [address] [address] Merchandise Shopper: Juan Perera MD Lymphocytes/100 WBC (Bld) 20 % Low 24-43 [facility] Comment on above: Performed By: #### L ACABDIRAHMAN CDP, REJEC #### [address] [address] Merchandise Shopper: Juan Perera MD Monocytes (Bld) [#/Vol] 1.08 10*3/uL Normal 0.10-1.20 [facility] Comment on above: Performed By: #### L ACWB CDP, REJEC #### [facility] [address] [place] [address] Merchandise Shopper: Juan Perera MD Monocytes/100 WBC (Bld) 12 % Normal 3-12 [facility] Comment on above: Performed By: #### L ACWB CDP, REJEC #### [address] [address] Merchandise Shopper: Juan Perera MD Neutrophil (Seg) 66 % High 36-65 [facility] Comment on above: Performed By: #### L ACWARAMIS Junior, REJEC #### [address] [address] Merchandise Shopper: Juan Perera MD RBC morphology finding Nom (Bld) ANISOCYTOSIS PRESENT Normal [facility] Comment on above: Performed By: #### L ACWARAMIS Junior, REJEC #### [address] [address] Merchandise Shopper: Juan Perera MD Erythrocyte distribution width (RBC) [Ratio] 15.6 % High 11.8-14.4 [facility] Comment on above: Performed By: #### L ACWARAMIS Junior, REJEC #### [facility] [address] [place] [address] Merchandise Shopper: Juan Perera MD Hematocrit (Bld) [Volume fraction] 36.3 % Normal 36.3-47.1 [facility] Comment on above: Performed By: #### L ARAMIS HO, REJEC #### [facility] [address] [place] [address] Merchandise Shopper: Juan Perera MD Hemoglobin (Bld) [Mass/Vol] 11.7 g/dL Low 11.9-15.1 [facility] Comment on above: Performed By: #### L ACWARAMIS Junior, REJEC #### [facility] [address] [place] [address] Merchandise Shopper: Juna Perera MD MCH (RBC) [Entitic mass] 27.9 pg Normal 25.2-33.5 [facility] Comment on above: Performed By: #### L ACWB CDP, REJEC #### [facility] [address] [place] [address] Merchandise Shopper: Juan Perera MD MCHC (RBC) [Mass/Vol] 32.2 g/dL Normal 28.4-34.8 [facility] Comment on above: Performed By: #### L ACWSandi CDP, REJEC #### [address] [address] Merchandise Shopper: Juan Perera MD MCV (RBC) [Entitic vol] 86.6 fL Normal 82.6-102.9 [facility] Comment on above: Performed By: #### L ACWB CDP, REJEC #### [address] [address] Merchandise Shopper: Juan Perera MD NRBC Automated 0.0 per 100 WBC Normal 0.0 [facility] Comment on above: Performed By: #### L ACWARAMIS Junior, REJEC #### [address] [address] Merchandise Shopper: Juan Perera MD Platelet mean volume (Bld) [Entitic vol] 9.3 fL Normal 8.1-13.5 [facility] Comment on above: Performed By: #### L ARAMIS HO, REJEC #### [address] [address] Merchandise Shopper: Juan Perera MD Platelets (Bld) [#/Vol] 215 10*3/uL Normal 138-453 [facility] Comment on above: Performed By: #### L ACWSandi CDP, REJEC #### [facility] [address] [place] [address] Merchandise Shopper: Juan Perera MD RBC (Bld) [#/Vol] 4.19 10*6/uL Normal 3.95-5.11 [facility] Comment on above: Performed By: #### L ACWSandi CDP, REJEC #### [address] [address] Merchandise Shopper: Juan Perera MD WBC (Bld) [#/Vol] 9.3 10*3/uL Normal 3.5-11.3 [facility] Comment on above: Performed By: #### L ACARAMIS GARY, REJEC #### [facility] [place] [address] Merchandise Shopper: Juan Perera MD Auto Diff Performed NOT REPORTED Normal [facility] Comment on above: Performed By: #### L ACWARAMIS Junior, REJEC #### [facility] [address] [place] [address] Merchandise Shopper: Juan Perera MD Platelets (Bld) [#/Vol] NOT REPORTED Normal [facility] Comment on above: Performed By: #### L ACARAMIS GARY, REJEC #### [facility] [address] [place] [address] Merchandise Shopper: Juan Perera MD WBC Morphology NOT REPORTED Normal [facility] Comment on above: Performed By: #### L ACARAMIS GARY, REJEC #### [address] [address] Merchandise Shopper: Juan Perera MD Comp Metabolic Profon 2018 (cont.) Normal [facility] Comment on above: Result Comment: Aver age GFR for 70 or more years old: 75 mL/min/1.73sq m Chronic Kidney Disease: <60 mL/min/1.73sq m Kidney failure: <15 mL/min/1.73sq m eGFR calculated using average adult body mass. Additional eGFR calculator available at: http://www.Clickslide.com/multiple_crcl_2012.htm Performed By: #### C P #### [address] [address] Merchandise Shopper: Juan Perera MD Albumin [Mass/Vol] 3.1 g/dL Low 3.5-5.2 [facility] Comment on above: Performed By: #### C P #### [address] [address] Merchandise Shopper: Juan Perera MD Albumin/Globulin [Mass ratio] 0.9 {ratio} Low 1.0-2.5 [facility] Comment on above: Performed By: #### C P #### [address] [address] Merchandise Shopper: Juan Perera MD Alkaline Phos 68 U/L Normal 35-104 [facility] Comment on above: Performed By: #### C P #### [address] [address] Merchandise Shopper: Juan Perera MD ALT [Catalytic activity/Vol] 8 U/L Normal 5-33 [facility] Comment on above: Performed By: #### C P #### [address] [address] Merchandise Shopper: Juan Perera MD Anion gap [Moles/Vol] 9 mmol/L Normal 9-17 [facility] Comment on above: Performed By: #### C P #### [address] [address] Merchandise Shopper: Juan Perera MD AST [Catalytic activity/Vol] 11 U/L Normal <32 [facility] Comment on above: Performed By: #### C P #### [address] [address] Merchandise Shopper: Juan Perera MD Bilirubin Ql (U) 0.39 mg/dL Normal 0.3-1.2 [facility] Comment on above: Performed By: #### C P #### [address] [address] Merchandise Shopper: Juan Perera MD Calcium [Mass/Vol] 8.6 mg/dL Normal 8.6-10.4 [facility] Comment on above: Performed By: #### C P #### [address] [address] Merchandise Shopper: Juan Perera MD Chloride [Moles/Vol] 106 mmol/L Normal 98-107 [facility] Comment on above: Performed By: #### C P #### [address] [address] Merchandise Shopper: Juan Perera MD CO2 [Moles/Vol] 25 mmol/L Normal 20-31 [facility] Comment on above: Performed By: #### C P #### [address] [address] Merchandise Shopper: Juan Perera MD Creatinine [Mass/Vol] 0.68 mg/dL Normal 0.50-0.90 [facility] Comment on above: Performed By: #### C P #### [address] [address] Merchandise Shopper: Juan Perera MD GFR, Amer >60 Normal >60 [facility] Comment on above: Performed By: #### C P #### [address] [address] Merchandise Shopper: Juan Perera MD GFR,non Amer >60 Normal >60 [facility] Comment on above: Performed By: #### C P #### [address] [address] Merchandise Shopper: Juan Perera MD Glucose [Mass/Vol] 108 mg/dL High 70-99 [facility] Comment on above: Performed By: #### C P #### [address] [address] Merchandise Shopper: Juan Perera MD Potassium [Moles/Vol] 3.8 mmol/L Normal 3.7-5.3 [facility] Comment on above: Performed By: #### C P #### [address] [address] Merchandise Shopper: Juan Perera MD Protein [Mass/Vol] 6.4 g/dL Normal 6.4-8.3 [facility] Comment on above: Performed By: #### C P #### [address] [address] Merchandise Shopper: Juan Perera MD Sodium [Moles/Vol] 140 mmol/L Normal 135-144 [facility] Comment on above: Performed By: #### C P #### [address] [address] Merchandise Shopper: Juan Perera MD Urea nitrogen [Mass/Vol] 14 mg/dL Normal 8- [facility] Comment on above: Performed By: #### C P #### [address] [address] Merchandise Shopper: Juan Perera MD BUN/CRE Ratio NOT REPORTED Normal - [facility] Comment on above: Performed By: #### C P #### [address] [address] Merchandise Shopper: Juan Perera MD Staging: NOT REPORTED Normal [facility] Comment on above: Performed By: #### C P #### [address] [address] Merchandise Shopper: Juan Perera MD Comprehensive Metabolic Pane [facility] 08-02-2019 Albumin [Mass/Vol] 3.1 g/dL Low 3.5 - 5.2 g/dL [place] Albumin/Globulin [Mass ratio] 0.9 {ratio} Low [place] ALP [Catalytic activity/Vol] 68 U/L 35 - 104 U/L [place] ALT [Catalytic activity/Vol] 8 U/L 5 - 33 U/L [place] Anion gap [Moles/Vol] 9 mmol/L 9 - 17 mmol/L [place] AST [Catalytic activity/Vol] 11 U/L <32 [place] Bilirubin Ql (U) 0.39 mg/dL 0.3 - 1.2 mg/dL [place] Bun/Cre Ratio NOT REPORTED [place] Calcium [Mass/Vol] 8.6 mg/dL 8.6 - 10. 4 mg/dL [place] Chloride [Moles/Vol] 106 mmol/L 98 - 10 7 mmol/L [place] CO2 [Moles/Vol] 25 mmol/L 20 - 31 mmol/L [place] Creatinine [Mass/Vol] 0.68 mg/dL 0.5 - 0.9 mg/dL [place] GFR >60 >60 mL/min [place] GFR Non- >60 >60 mL/min [place] GFR/1.73 sq M predicted among non-blacks MDRD (S/P/Bld) [Vol rate/Area] [place] Comment on above: Average GFR for 70 o r more years old: 75 mL/min/1.73sq m Chronic Kidney Disease: <60 mL/min/1.73sq m Kidney failure: <15 mL/min/1.73sq m eGFR calculated using average adult body mass. Additional eGFR calculator available at: http://www.Clickslide.Cinsay/multiple_crcl_2012.htm GFR/1.73 sq M predicted among non-blacks MDRD (S/P/Bld) [Vol rate/Area] NOT REPORTED [place] Glucose [Mass/Vol] 108 mg/dL High 70 - 99 mg/dL [place] Interpretation and review of laboratory results Abnormal [place] Potassium [Moles/Vol] 3.8 mmol/L 3.7 - 5.3 mmol/L [place] Protein [Mass/Vol] 6.4 g/dL 6.4 - 8.3 g/dL [place] Sodium [Moles/Vol] 140 mmol/L 135 - 144 mmol/L [place] Urea nitrogen [Mass/Vol] 14 mg/dL 8 - 23 mg/dL [place] LACTIC ACID, WHOLE BLOODon 1 Lactic Acid, Whole Blood 1.0 mmol/L 0.7 - 2.1 mmol/L [place] Lactic Acid,Whole Blon 08-02 Lactic Acid,Whole Bl 1.0 mmol/L Normal 0.7-2.1 [facility] Comment on above: Performed By: #### L ARAMIS HO, REJEC #### [facility] [address] [place] [phone] Merchandise Shopper: Juan Perera MD SPECIMEN REJECTIONon 019 Ordered Test CP [place] Reason for Rejection Unable to perform t esting: Specimen hemolyzed. [place] Specimen source Nom (Unsp spec) [employer] WORKER [place] - NOT REPORTED [place] Specimen Rejectionon 019 Reason for rejection Unable to perform t esting: Specimen hemolyzed. [facility] Comment on above: Performed By: #### L ARAMIS HO, REJEC #### [facility] [address] [place] [phone] Merchandise Shopper: Juan Perera MD Source of sample [employer]OX WORK[employer] [facility] Comment on above: Performed By: #### L ARAMIS HO, REJEC #### [employer] [facility] [place], [place] [phone] Merchandise Shopper: Juan Perera MD Test ordered CP [facility] Comment on above: Performed By: #### L ARAMIS HO, REJEC #### [employer] [facility] [place], [place] [phone] Merchandise Shopper: Juan Perera MD ----- NOT REPORTED [facility] Comment on above: Performed By: #### L ACWB, CDP, REJEC #### [address] [id number] [place] [address] Merchandise Shopper: Juan Perera MD XR ABDOMEN FOR NG/OG/NE [...] Eduardo Horner MD 08/02/19 Final result Normal [facility] Robert, Mhpn Incoming R adiant Results From [employer] - 08/02/2019 4:59 AM EDT EXAMINATION: ONE [...] The tube should be advanced 4 cm. [facility] [place] EXAMINATION: ONE SUP INE XRAY VIEW(S) [...] system. Very little bowel gas is seen. [facility], [place] The tip of the enter ic tube is in the stomach though the proximal side hole is in the esophagus. The tube should be advanced 4 cm. [facility], [place] Mammogram Routine Screeni ng Bilat.on 07-02-2018 [place] Mammogram Routine Screening Bilat. MAMMOGRAM ROUTINE SCREENING [...] 4. False positive reports average 6 to 10%.LESA StoddardB #: [id number]: 07/03/2018T: 07/03/2018 Final Dictated by: Chidi Preston MD SDictated DT/TM: 07/03/18 9:47Signed (Electronic Signature): Chidi Preston MD 07/03/18 1:53 pmTechnologist: CMAAssessment: 2-Benign findingRecommendation: Normal interval follow-up Normal [facility] Provider Orderson 06-19-2018 Protein mass conc [id number] [facility] Coding Summaryon 09-03-2017 Coding Summary CODING DATE: 017 [facility] STATUS: Home PAYOR: Medicare ADMIT DX: REASON [...] Waller Revised Date Saved: 06/24/2017 10:08 am [facility] Vital Signs Date Time Vital Sign Value Performing Clinician Facility 02-19-2024 19:31-0400 SaO2% (BldA) [Mass fraction] 95 % APURVA [facility] Comment on above: Performed By: #### ELEC #### [facility] ([id number]) [address] [place] [address], [address] [place] [address] 02-17-2024 16:00-0400 Inhaled oxygen flow rate 3.5 L/min DO Gustavo Salas Work Phone: [facility] 02-17-2024 16:00-0400 SaO2% (BldA) [Mass fraction] 90 % DO Gustavo Salas Work Phone: [facility] 02-17-2024 14:02-0400 Body height 152.4 cm DO Gustavo Salas Work Phone: [facility] 02-17-2024 12:32-0400 Diastolic blood pressure 53 mm[Hg] DO Gustavovanesa Salas Work Phone: [facility] 02-17-2024 12:32-0400 Heart rate 96 /min DO Gustavovanesa Salas Work Phone: [facility] 02-17-2024 12:32-0400 Respiratory rate 18 /min DO Gustavo Salas Work Phone: [facility] 02-17-2024 12:32-0400 Systolic blood pressure 116 mm[Hg] DO Gustavo Maritza Work Phone: [facility] 02-17-2024 08:00-0400 Body temperature 97.8 [degF] DO Gustavo Salas Work Phone: [facility] 02-17-2024 05:48-0400 Body weight 86.1 kg DO Gustavo Salas Work Phone: [facility] 02-14-2024 16:43-0400 Body height 152.4 cm DO Gustavo Salas Work Phone: [facility] 02-14-2024 16:43-0400 Body temperature 98.3 [degF] DO Gustavo Salas Work Phone: [facility] 02-14-2024 16:43-0400 Body weight 84.9 kg DO Gustavo Salas Work Phone: [facility] 02-14-2024 16:43-0400 Diastolic blood pressure 69 mm[Hg] DO Gustavo Salas Work Phone: [facility] 02-14-2024 16:43-0400 Heart rate 105 /min DO Gustavo Salas Work Phone: [facility] 02-14-2024 16:43-0400 Inhaled oxygen flow rate 4 L/min DO Gustavo Salas Work Phone: [facility] 02-14-2024 16:43-0400 Respiratory rate 20 /min DO Gustavo Salas Work Phone: [facility] 02-14-2024 16:43-0400 SaO2% (BldA) [Mass fraction] 92 % DO Gustavo Saals Work Phone: [facility] 02-14-2024 16:43-0400 Systolic blood pressure 119 mm[Hg] DO Gustavo Salas Work Phone: [facility] 02-10-2024 12:36-0400 Body height 152.4 cm Jenna Engle MD Work Phone: [facility] 02-10-2024 12:36-0400 Body mass index (BMI) [Ratio] 35.15 kg/m2 Jenna Engle MD Work Phone: [facility] 02-10-2024 12:36-0400 Body weight 81.65 kg Jenna Engle MD Work Phone: [facility] 02-10-2024 12:36-0400 Diastolic blood pressure 70 mm[Hg] Jenna Engle MD Work Phone: [facility] 02-10-2024 12:36-0400 Heart rate 96 /min Jenna Engle MD Work Phone: [facility] 02-10-2024 12:36-0400 Systolic blood pressure 120 mm[Hg] Jenna Engle MD Work Phone: [facility] 01-30-2024 13:31-0400 Blood Pressure Location Renae Orzech [facility] 01-30-2024 13:31-0400 Body temperature 98.24 [degF] Renae Orzech [facility] 01-30-2024 13:31-0400 Diastolic blood pressure 82 mm[Hg] Renae Orzech [facility] 01-30-2024 13:31-0400 Heart rate 84 /min Renae Orzech [facility] 01-30-2024 13:31-0400 Systolic blood pressure 118 mm[Hg] Renae Orzech [facility] 01-27-2024 13:42-0400 Body height 162.[address] 01-27-2024 13:42-0400 Body mass index (BMI) [Ratio] 32.96 kg/m2 [address] 01-27-2024 13:42-0400 Body weight 87.[address] 01-27-2024 13:42-0400 Diastolic blood pressure 78 mm[Hg] [address] 01-27-2024 13:42-0400 Systolic blood pressure 126 mm[Hg] [address] 01-06-2024 11:39-0400 Diastolic blood pressure 72 mm[Hg] Jenna Engle MD Work Phone: [facility] 01-06-2024 11:39-0400 Systolic blood pressure 128 mm[Hg] Jenna Engle MD Work Phone: [facility] 01-06-2024 11:38-0400 Body height 162.6 cm Jenna Engle MD Work Phone: [facility] 01-06-2024 11:38-0400 Body mass index (BMI) [Ratio] 32.96 kg/m2 Jenna Engle MD Work Phone: [facility] 01-06-2024 11:38-0400 Body weight 87.09 kg Jenna Engle MD Work Phone: [facility] 01-06-2024 11:38-0400 Heart rate 62 /min Jenna Engle MD Work Phone: [facility] 12-09-2023 11:08-0500 Body mass index (BMI) [Ratio] 34.18 kg/m2 Gustavo Salas DO Work Phone: [facility] 12-09-2023 11:08-0500 Body temperature 97.5 [degF] Gustavo Salas DO Work Phone: [facility] 12-09-2023 11:08-0500 Body weight 79.38 kg Gustavo Salas DO Work Phone: [facility] 12-09-2023 11:08-0500 Diastolic blood pressure 72 mm[Hg] Gustavo Maritza DO Work Phone: [facility] 12-09-2023 11:08-0500 Heart rate 106 /min Gustavo Salas DO Work Phone: [facility] 12-09-2023 11:08-0500 SaO2% (BldA) [Mass fraction] 96 % Gustavo Salas DO Work Phone: [facility] 12-09-2023 11:08-0500 Systolic blood pressure 122 mm[Hg] Gustavo Salas DO Work Phone: [facility] 08-20-2023 16:32-0400 Heart rate 95 /min DO Gustavo Salas Work Phone: [facility] 08-20-2023 16:32-0400 Respiratory rate 20 /min DO Gustavo Salas Work Phone: [facility] 08-20-2023 12:00-0400 Body temperature 98.1 [degF] DO Gustavo Salas Work Phone: [facility] 08-20-2023 12:00-0400 Diastolic blood pressure 90 mm[Hg] DO Gustavo Salas Work Phone: [facility] 08-20-2023 12:00-0400 SaO2% (BldA) [Mass fraction] 95 % DO Gustavo Salas Work Phone: [facility] 08-20-2023 12:00-0400 Systolic blood pressure 125 mm[Hg] DO Gustavo Maritza Work Phone: [facility] 08-20-2023 04:47-0400 Body weight 82.7 kg DO Gustavo Salas Work Phone: [facility] 08-19-2023 13:57-0400 Body height 152.4 cm DO Gustavo Maritza Work Phone: [facility] 08-17-2023 20:08-0400 Diastolic blood pressure 68 mm[Hg] DO Gutsavo Maritza Work Phone: [facility] 08-17-2023 20:08-0400 Heart rate 80 /min DO Gustavo Maritza Work Phone: [facility] 08-17-2023 20:08-0400 Respiratory rate 20 /min DO Gustavo Maritza Work Phone: [facility] 08-17-2023 20:08-0400 SaO2% (BldA) [Mass fraction] 95 % DO Gustavo Maritza Work Phone: [facility] 08-17-2023 20:08-0400 Systolic blood pressure 132 mm[Hg] DO Gustavo Maritza Work Phone: [facility] 08-17-2023 16:09-0400 Body temperature 97.4 [degF] DO Gustavo Maritza Work Phone: [facility] 08-17-2023 16:07-0400 Body height 152.4 cm DO Gustavo Maritza Work Phone: [facility] 08-17-2023 16:07-0400 Body weight 81 kg DO Gustavo Maritza Work Phone: [facility] 07-14-2023 13:39-0400 Body temperature 97.8 [degF] DO Gustavo Maritza Work Phone: [facility] 07-14-2023 13:39-0400 Diastolic blood pressure 79 mm[Hg] DO Gustavo Maritza Work Phone: [facility] 07-14-2023 13:39-0400 Heart rate 80 /min DO Gustavo Maritza Work Phone: [facility] 07-14-2023 13:39-0400 Respiratory rate 18 /min DO Gustavo Maritza Work Phone: [facility] 07-14-2023 13:39-0400 SaO2% (BldA) [Mass fraction] 94 % DO Gustavo Salas Work Phone: [facility] 07-14-2023 13:39-0400 Systolic blood pressure 110 mm[Hg] DO Gustavo Salas Work Phone: [facility] 07-14-2023 06:00-0400 Body weight 90.1 kg DO Gustavo Salas Work Phone: [facility] 07-11-2023 15:28-0400 Body height 152.4 cm DO Gustavo Salas Work Phone: [facility] 07-10-2023 13:00-0400 Diastolic blood pressure 59 mm[Hg] DO Gustavo Salas Work Phone: [facility] 07-10-2023 13:00-0400 Heart rate 72 /min DO Gustavo Salas Work Phone: [facility] 07-10-2023 13:00-0400 Respiratory rate 18 /min DO Gustavo Salas Work Phone: [facility] 07-10-2023 13:00-0400 SaO2% (BldA) [Mass fraction] 96 % DO Gustavo Salas Work Phone: [facility] 07-10-2023 13:00-0400 Systolic blood pressure 107 mm[Hg] DO Gustavo Salas Work Phone: [facility] 06-17-2023 15:04-0400 Body height 152.4 cm DO Gustavo Salas Work Phone: [facility] 06-17-2023 15:04-0400 Body temperature 98.7 [degF] DO Gustavo Salas Work Phone: [facility] 06-17-2023 15:04-0400 Body weight 80.28 kg DO Gustavo Salas Work Phone: [facility] 06-17-2023 15:04-0400 Diastolic blood pressure 55 mm[Hg] DO Gustavo Salas Work Phone: [facility] 06-17-2023 15:04-0400 Heart rate 76 /min DO Gustavo Salas Work Phone: [facility] 06-17-2023 15:04-0400 Respiratory rate 19 /min DO Gustavo Salas Work Phone: [facility] 06-17-2023 15:04-0400 SaO2% (BldA) [Mass fraction] 96 % DO Gustavo Salas Work Phone: [facility] 06-17-2023 15:04-0400 Systolic blood pressure 110 mm[Hg] DO Gustavo Salas Work Phone: [facility] 12-31-2022 11:45-0500 Body temperature 97.3 [degF] DO Gustavo Salas Work Phone: [facility] 12-31-2022 11:45-0500 Diastolic blood pressure 72 mm[Hg] DO Gustavo Salas Work Phone: [facility] 12-31-2022 11:45-0500 Heart rate 78 /min DO Gustavo Salas Work Phone: [facility] 12-31-2022 11:45-0500 Inhaled oxygen flow rate 2 L/min DO Gustavo Salas Work Phone: [facility] 12-31-2022 11:45-0500 Respiratory rate 18 /min DO Gustavo Salas Work Phone: [facility] 12-31-2022 11:45-0500 SaO2% (BldA) [Mass fraction] 92 % DO Gustavo Salas Work Phone: [facility] 12-31-2022 11:45-0500 Systolic blood pressure 114 mm[Hg] DO Gustavo Salas Work Phone: [facility] 12-31-2022 06:00-0500 Body weight 83.5 kg DO Gustavo Salas Work Phone: [facility] 12-27-2022 10:00-0500 Body height 152.4 cm DO Gustavo Salas Work Phone: [facility] 12-26-2022 23:00-0500 Diastolic blood pressure 60 mm[Hg] DO Gustavo Salas Work Phone: [facility] 12-26-2022 23:00-0500 Heart rate 77 /min DO Gustavo Salas Work Phone: [facility] 12-26-2022 23:00-0500 Respiratory rate 18 /min DO Gustavo Salas Work Phone: [facility] 12-26-2022 23:00-0500 SaO2% (BldA) [Mass fraction] 94 % DO Gustavo Salas Work Phone: [facility] 12-26-2022 23:00-0500 Systolic blood pressure 130 mm[Hg] DO Gustavo Salas Work Phone: [facility] 12-26-2022 18:59-0500 Body height 152.4 cm DO Gustavo Salas Work Phone: [facility] 12-26-2022 18:59-0500 Body temperature 98.8 [degF] DO Gustavo Salas Work Phone: [facility] 12-26-2022 18:59-0500 Body weight 84.3 kg DO Gustavo Salas Work Phone: [facility] 11-22-2022 11:25-0500 Body temperature 97.5 [degF] DO Gustavo Maritza Work Phone: [facility] 11-22-2022 11:25-0500 Diastolic blood pressure 68 mm[Hg] DO Gustavo Maritza Work Phone: [facility] 11-22-2022 11:25-0500 Heart rate 72 /min DO Gustavo Maritza Work Phone: [facility] 11-22-2022 11:25-0500 Respiratory rate 22 /min DO Gustavovanesa Salas Work Phone: [facility] 11-22-2022 11:25-0500 SaO2% (BldA) [Mass fraction] 93 % DO Gustavovanesa Salas Work Phone: [facility] 11-22-2022 11:25-0500 Systolic blood pressure 146 mm[Hg] DO Gustavo Maritza Work Phone: [facility] 11-22-2022 10:26-0500 Body height 152.4 cm DO Gustavo Salas Work Phone: [facility] 11-22-2022 10:26-0500 Body weight 87.9 kg DO Gustavo Salas Work Phone: [facility] 05-31-2022 15:12-0400 Diastolic blood pressure 75 mm[Hg] DO Gustavo Maritza Work Phone: [facility] 05-31-2022 15:12-0400 Heart rate 69 /min DO Gustavo Salas Work Phone: [facility] 05-31-2022 15:12-0400 Respiratory rate 25 /min DO Gustavo Salas Work Phone: [facility] 05-31-2022 15:12-0400 SaO2% (BldA) [Mass fraction] 98 % DO Gustavo Maritza Work Phone: [facility] 05-31-2022 15:12-0400 Systolic blood pressure 156 mm[Hg] DO Gustavo Maritza Work Phone: [facility] 05-31-2022 11:02-0400 Body height 154.94 cm DO Gustavo Maritza Work Phone: [facility] 05-31-2022 11:02-0400 Body temperature 97.1 [degF] DO Gustavo Maritza Work Phone: [facility] 05-31-2022 11:02-0400 Body weight 86.18 kg DO Gustavo Salas Work Phone: [facility] 08-04-2019 08:30-0400 Body Temperature 97.81 [degF] [facility] [place] 08-04-2019 08:30-0400 BP Diastolic 69 mm[Hg] Hayden Watters [facility] [place] 08-04-2019 08:30-0400 BP Systolic 161 mm[Hg] Hayden Watters [facility] [place] 08-04-2019 08:30-0400 Pulse (Heart Rate) 78 /min [facility] [place] [facility]-04-2019 08:30-0400 Pulse Oximetry 92 % Hayden Watters [facility] [place] 08-04-2019 08:30-0400 Respiratory Rate 18 /min Hayden Watters [facility] [place] 08-02-2019 01:00-0400 BMI (Body Mass Index) 34.44 kg/m2 [facility] [place] 08-02-2019 01:00-0400 Body weight 82.67 kg Hayden Watters [facility] [place] 08-02-2019 01:00-0400 Height 154.9 cm Hayden Watters [facility] [place] Encounters Encounter Date Encounter Type Care Provider Facility Start: 09-19-2024 End: 09-21-2024 Clinisync Result Encounter Generic External Data Provider [facility] External Department Unsolicited Start: 09-19-2024 End: 09-21-2024 Clinisync Result Encounter Generic External Data Provider [facility] External Department Unsolicited Start: 07-02-2024 End: 07-02-2024 ambulatory KALYAN BARBOZA Not Available Start: 06-22-2024 End: 06-22-2024 ambulatory GUSTAVO SALAS Not Available Start: 05-22-2024 End: 05-22-2024 ambulatory GUSTAVO SALAS Not Available Start: 05-16-2024 End: 05-16-2024 ambulatory KALYAN BARBOZA Not Available Start: 05-06-2024 End: 05-06-2024 ambulatory GUSTAVO SALAS Not Available Start: 05-06-2024 End: 05-06-2024 ambulatory GUSTAVO SALAS Not Available Start: 04-27-2024 End: 04-27-2024 ambulatory [facility] Start: 04-13-2024 End: 04-13-2024 ambulatory [facility] Start: 04-08-2024 End: 04-08-2024 ambulatory [facility] Start: 04-02-2024 End: 04-02-2024 ambulatory [facility] Start: 03-30-2024 End: 03-30-2024 ambulatory [facility] Start: 03-18-2024 End: 03-18-2024 ambulatory [facility] Start: 03-17-2024 End: 03-17-2024 ambulatory [facility] Start: 03-11-2024 End: 03-11-2024 ambulatory [facility] Start: 03-05-2024 End: 03-05-2024 ambulatory TODD POSEY [facility] Start: 03-04-2024 End: 03-04-2024 ambulatory GUSTAVO Raza MARITZA [facility] Start: 03-03-2024 End: 03-03-2024 ambulatory TODD POSEY [facility] Start: 03-02-2024 End: 03-02-2024 ambulatory TODD POSEY [facility] Start: 02-27-2024 End: 02-27-2024 ambulatory TODD Aisha POSEY [facility] Start: 02-19-2024 End: 02-26-2024 Emergency department patient visit OVIDIO JANE [facility] Start: 02-19-2024 End: 02-25-2024 Evaluation and management of inpatient GUSTAVO SALAS [facility] Start: 02-19-2024 End: 02-26-2024 Emergency department patient visit OVIDIO Durham [facility] Start: 02-14-2024 Non-patient / Non-visit DO David rama Salas Work Phone: [facility] Work Phone: Start: 02-14-2024 End: 02-17-2024 Evaluation and management of inpatient DO Gustavo Salas Work Phone: [facility] Work Phone: Start: 02-10-2024 End: 02-10-2024 ambulatory [facility] Start: 02-10-2024 End: 02-10-2024 Office outpatient visit 25 minutes Jenna Engle MD Work Phone: [facility] Comment on above: Shortness of breath; 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; History of PTCA; Essential hypertension; Hyperlipidemia, mixed; Obstructive sleep apnea syndrome; BMI 35.0-35.9,adult; Current smoker; Chronic hypoxemic respiratory failure (Multi); Encounter to discuss test results Start: 02-05-2024 End: 02-05-2024 ambulatory GUSTAVO SALAS Not Available Start: 01-30-2024 End: 01-31-2024 ambulatory Renae X Orzech [facility] Start: 01-30-2024 End: 01-31-2024 ambulatory Renae X Orzech Facility:[facility] Start: 01-30-2024 End: 01-30-2024 Lab Drop off Renae X Orzech [facility] Start: 01-30-2024 End: 01-30-2024 Patient encounter procedure Renae X Orzech [facility] Start: 01-27-2024 End: 01-28-2024 ambulatory [facility] Start: 01-27-2024 End: 01-27-2024 Subsequent hospital visit by physician Magn[facility] Echo/Vasc Room 2 [facility] Comment on above: Shortness of breath Start: 01-13-2024 ambulatory Renae Ponce Facility: [facility] Start: 01-10-2024 End: 01-10-2024 ambulatory GUSTAVO SALAS Not Available Start: 01-06-2024 End: 01-06-2024 Patient encounter procedure DO Gustavo Salas Work Phone: 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; Stage 3b chronic [...] minutes Gustavo Salas DO Work Phone: [facility] Comment on above: SOB (shortness of br eath) (Primary Dx); Wheezing; Urinary tract bacterial infections; Essential hypertension (CMS/HCC); Mixed hyperlipidemia ([facility]/HCC); Stage 3a chronic kidney disease (HCC) ([facility]/HCC); Sepsis with acute renal failure without septic shock, due to unspecified organism, unspecified acute renal failure type ([facility]/HCC); Hospital discharge follow-up; Medication management; Female bladder prolapse; Pulmonary emphysema, unspecified emphysema type ([facility]/HCC) Start: 11-12-2023 Telephone encounter [facility] Start: 10-31-2023 Chart abstracting Scanning Pro vider External [facility] Start: 10-30-2023 Telephone encounter [facility] Comment on above: Neuro Appt Start: 10-21-2023 End: 10-24-2023 [facility] Start: 10-18-2023 End: 10-24-2023 [facility] Start: 10-17-2023 End: 10-24-2023 [facility] Start: 10-15-2023 End: 10-24-2023 Evaluation and management of inpatient ASHLEY Calle [facility] Start: 10-14-2023 End: 10-24-2023 Evaluation and management of inpatient [facility] Start: 10-10-2023 End: 10-24-2023 Evaluation and management of inpatient BRAINTREE E [facility] Start: 10-08-2023 End: 10-24-2023 Evaluation and management of inpatient NOE Durham SEA [facility] Start: 10-06-2023 End: 10-24-2023 Evaluation and management of inpatient CARABIENVENIDO VELAZQUEZ [facility] Start: 10-06-2023 End: 10-24-2023 Evaluation and management of inpatient FRANCINE YANG [facility] Start: 10-06-2023 End: 10-24-2023 Evaluation and management of inpatient SHEILA RODRIGUEZ ASHA [facility] Start: 10-05-2023 End: 10-24-2023 Evaluation and management of inpatient APURVA L MARIELA [facility] Start: 10-05-2023 End: 10-23-2023 Evaluation and management of inpatient ALI TRINA [facility] Start: 08-17-2023 End: 08-20-2023 Evaluation and management of inpatient DO Gustavo Salas Work Phone: [facility] Work Phone: Start: 07-10-2023 End: 07-14-2023 Evaluation and management of inpatient DO Gustavo Salas Work Phone: [facility] Work Phone: Start: 06-17-2023 End: 06-17-2023 Emergency department patient visit DO Gustavo Salas Work Phone: [facility] Work Phone: Start: 04-01-2023 End: 04-26-2023 Patient encounter procedure Gustavo Salas DO Work Phone: [facility] Start: 01-22-2023 ambulatory NARCISO TAIMIANDREW . Facility:[id number] Start: 12-27-[address] Charlie Gao II Facility:[id number] Start: 12-26-2022 End: 12-31-2022 Evaluation and management of inpatient DO Gustavo Salas Work Phone: [facility] Work Phone: Start: 11-22-2022 End: 11-22-2022 Emergency department patient visit DO Gustavo Salas Work Phone: [facility] Work Phone: Start: 05-31-2022 End: 05-31-2022 Emergency department patient visit DO Gustavo Salas Work Phone: [facility] Start: 05-03-2022 End: 05-03-2022 ambulatory Jorge A Renetta Other [facility] Other Start: 05-03-2022 Telephone encounter Jorge A Renetta [facility] Start: 04-24-2022 End: 04-24-2022 ambulatory Jorge A Renetta Other [facility] Other Start: 04-24-2022 Telephone encounter Jorge A Renetta [facility] Start: 03-12-[address] [facility] Start: 03-08-2022 End: 03-08-2022 ambulatory Jorge A Renetta Other [facility] Other Start: 03-08-2022 Telephone encounter Jorge A Renetta [facility] Start: 01-18-2022 End: 01-18-2022 ambulatory Tanya Cesar Other [facility] Other Start: 01-18-2022 Telephone encounter Tanya Cesar [facility] Start: 10-26-2021 End: 10-26-2021 ambulatory Jorge A Renetta Other [facility] Other Start: 10-26-2021 Telephone encounter Jorge A Renetta [facility] Start: 08-02-2019 End: 08-04-2019 Evaluation and management of inpatient CRYS BARBOZA [facility] Start: 08-01-2019 End: 08-04-2019 Evaluation and management of inpatient Hayden Bueno Work Phone: [facility] Start: 07-03-2018 End: 07-03-2018 Patient encounter Mely Camarillo Facility:[facility] Procedures Date Procedure Procedure Detail Performing Clinician Start: 09-19-2024 BLOOD CULTURE 2 Generic External Data Provider Start: 09-19-2024 BLOOD CULTURE 1 Generic External Data Provider Start: 03-17-2024 Follow-up visit Follow-up CARY BELCHER Start: 02-19-2024 Cyclic citrullinated peptide antibody APURVA SIERRA Comment on above: Result Comment: Interpretation-------- <3 Negative >=3 Positive Performed By: #### E LEC #### [facility] ([id number]) [address] [place] [address], [address] [place] [address] Start: 02-16-2024 Investigation of transfusion reaction DO [...] Start: 02-14-2024 Plain chest X-ray DO Corwin james Maritza Work Phone: Start: 02-10-2024 FOLLOW UP IN [...] Start: 10-23-2023 Cyclic citrullinated peptide antibody APURVA MARIELA Comment on above: Result Comment: Interpretation-------- <3 Negative >=3 Positive Performed By: #### C , [facility], [id number], [id number] #### [facility] ([id number]) [address] [facility], [address] [place] [address] Start: 10-06-2023 Adult depression screening assessment Tony-Ginger Ortega Start: 08-18-2023 Duplex scan of lower [...] Work Phone: Start: 08-04-2019 DISCHARGE PATIENT CRYS JABARI Start: 08-04-2019 DIET LOW FIBER CRYS MANNY ACEVEDO Start: 08-04-2019 INITIATE OXYGEN THER APY [...] count complete auto&auto difrntl wbc Trued Al Laurai Work Phone: Start: 08-03-2019 Comprehensive metabo lic panel Hayden Parragancon Work Phone: Start: 08-02-2019 TELEMETRY MONITORING ALEX INGRAM JABARI Start: 08-02-2019 Comprehensive metabo lic panel CRYS BARBOZA Start: 08-02-2019 PREVIOUS SPECIMEN CRYS BARBOZA Start: 08-02-2019 NURSING COMMUNICATION Aihsa EVANS JABARI Start: 08-02-2019 INITIATE OXYGEN THER APY PROTOCOL CRYS BARBOZA Start: 08-02-2019 Comprehensive metabo lic panel Verenice Chilel Work Phone: Start: 08-02-2019 Assay of lactate CRYS BARBOZA Start: 08-02-2019 Blood count complete auto&auto difrntl wbc CRYS BARBOZA Start: 08-02-2019 Drug tst prsmv instr mnt chem analyzers pr date CRYS BARBOZA Start: 08-02-2019 Assay of lactate Marisol Lynette Work Phone: Start: 08-02-2019 Blood count complete auto&auto difrntl wbc Trued Al Laurai Work Phone: Start: 08-02-2019 SPECIMEN REJECTION Rosa Parragancon Work Phone: Start: 08-02-2019 Radiologic exam abdo men 1 view CRYS BARBOZA Start: 08-02-2019 TUBE INSERTION CRYSRaza ACEVEDO Start: 08-02-2019 Radiologic exam abdo men 1 view Marisol Ojeda Work Phone: Start: 08-02-2019 IP CONSULT TO GENERA L SURGERY CRYS BARBOZA Start: 08-02-2019 FULL CODE CRYS Hill Start: 08-02-2019 INITIATE OXYGEN THER APY PROTOCOL CRYS BARBOZA Start: 08-01-2019 PATIENT STATUS (DIRECT) CRYS BARBOZA Start: 02-25-2015 End: 03-25-2024 H/O: colostomy Colostomy status Generic Provider History of percutane ous transluminal coronary angioplasty History of PTCA Jenna Engle MD Work Phone: History of placement of stent for coronary artery disease S/P right coronary artery (RCA) stent placement Renae Ponce Plan of Treatment Date Care Activity Detail Author Start: 05-06-2025 Urine screening for protein Diabetes: Urine Protein Screening [facility] Start: 01-26-2025 Echocardiography Echocardiogram [facility] Start: 10-23-2024 Adult BMI Screening Adult BMI Screening [facility] Start: 10-08-2024 End: 10-08-2024 Patient encounter procedure 10/08/2024 4:10 PM EST Procedure Visit [facility] [address] [place] [id number] Kalyan Barboza, DPViki [address] [facility] [address] [place] [address] [facility] Start: 10-07-2024 Echocardiography Echocardiogram [facility] Start: 10-06-2024 Depression Screening Depression Screening [facility] Start: 10-06-2024 Tobacco Screening Tobacco Screening [facility] Start: 09-22-2024 End: 09-22-2024 Patient encounter procedure 09/22/2024 2:00 PM EST Office Visit [facility] [address] [place] [id number] Gustavo Salas DO [address] [place] [address] [facility] Start: 06-28-2024 Influenza vaccination Influenza Vaccine (#1) [facility] Start: 04-27-2024 Screening for osteoporosis Bone [facility] [facility] Start: 04-01-2024 Medicare Annual Wellness (AWV) Medicare Annual Wellness (AWV) [facility] Start: 02-19-2024 [facility] Start: 02-18-2024 [facility] Start: 02-17-2024 [facility] Start: 02-16-2024 Microbial culture of sputum [facility] Start: 02-14-2024 [facility] Start: 02-14-2024 Referral to Plasterer Helper [facility] Start: 02-14-2024 [facility] Start: 02-14-2024 Hospital admission [facility] Start: 02-14-2024 Bacteria identified in Blood by Culture [facility] Start: 02-14-2024 Bacteria identified in Urine by Culture [facility] Start: 02-14-2024 Blood culture for bacteria, including anaerobic screen Blood Culture [facility] Start: 02-14-2024 Duplex scan of lower limb veins US venous duplex LE RT [facility] Start: 02-14-2024 US Lower extremity vein - right [facility] Start: 02-10-2024 End: 02-10-2024 Patient encounter procedure 02/10/2024 12:30 PM EDT Office Visit [place] [id number] [place] [address] Jenna Engle MD [address] [place] [address] [address] [place] [address] [facility] Start: 01-27-2024 End: 01-27-2024 Patient encounter procedure 01/27/2024 1:30 PM EDT Appointment [place] [id number] Heladio [facility] [address] [place] [address] [facility] Start: 01-10-2024 End: 01-10-2024 Patient encounter procedure 01/10/2024 2:00 PM EDT Office Visit [facility] [address] [place] [id number] William Gallagher MD [address], [address] [place] [address] [facility] Start: 01-06-2024 End: 01-05-2025 CBC panel - Blood by Automated count CBC Lab Routine Shortness of breath Expected: 01/06/2024 (Approximate), Expires: 01/05/2025 [facility] Work Phone: Comment on above: Expected: 01/06/2024 (Approximate), Expi res: 01/05/2025 Start: 01-06-2024 End: 01-05-2025 Comprehensive metabolic 2000 panel - Serum or Plasma Comprehensive Metabolic Panel Lab Routine Shortness of breath Expected: 01/06/2024 (Approximate), Expires: 01/05/2025 [facility] Work Phone: Comment on above: Expected: 01/06/2024 (Approximate), Expi res: 01/05/2025 Start: 01-06-2024 End: 01-05-2025 Erythrocyte sedimentation rate Sedimentation Rate Lab Routine Shortness of breath Expected: 01/06/2024 (Approximate), Expires: 01/05/2025 [facility] Work Phone: Comment on above: Expected: 01/06/2024 (Approximate), Expi res: 01/05/2025 Start: 01-06-2024 End: 01-05-2025 Natriuretic peptide B [Mass/volume] in Blood B-Type Natriuretic Peptide Lab Routine Shortness of breath Expected: 01/06/2024 (Approximate), Expires: 01/05/2025 [facility] Work Phone: Comment on above: Expected: 01/06/2024 (Approximate), Expi res: 01/05/2025 Start: 01-06-2024 End: 01-05-2026 US Heart Transthoracic Transthoracic Echo Complete Echocardiography Routine Shortness of breath Expected: 01/06/2024 (Approximate), Expires: 01/05/2026 [facility] Service Area Work Phone: Comment on above: Expected: 01/06/2024 (Approximate), Expi res: 01/05/2026 Start: 01-06-2024 End: 01-05-2025 XR Chest 2 Views XR chest 2 views Imaging Routine Shortness of breath Expected: 01/06/2024 (Approximate), Expires: 01/05/2025 [facility] Work Phone: Comment on above: Expected: 01/06/2024 (Approximate), Expi res: 01/05/2025 Start: 12-30-2023 End: 12-30-2023 Patient encounter procedure 12/30/2023 11:15 AM EST Office Visit [facility] [address] [place] [phone] Gustavo Salas DO [address] [place] [address] [facility] Start: 12-16-2023 End: 12-16-2023 Patient encounter procedure 12/16/2023 11:30 AM EST Office Visit [facility] [address] [place] [address] Yovani Glover PA-C [address] [place] [address] [facility] Start: 12-09-2023 End: 12-09-2024 Bacteria identified in Urine by Culture Urine culture (clean catch) Microbiology Routine Urinary tract bacterial infections Expected: 12/09/2023 (Approximate), Expires: 12/09/2024 [facility] Comment on above: Expected: 12/09/2023 (Approximate), Expi res: 12/09/2024 Start: 12-09-2023 End: 12-09-2024 CBC W Auto Differential panel - Blood CBC and differential Lab Routine Essential hypertension (CMS/HCC) Expected: 12/09/2023 (Approximate), Expires: 12/09/2024 [facility] Work Phone: Comment on above: Expected: 12/09/2023 (Approximate), Expi res: 12/09/2024 Start: 12-09-2023 End: 12-09-2024 Comprehensive metabolic 2000 panel - Serum or Plasma Comprehensive metabolic panel Lab Routine Essential hypertension (CMS/HCC) Expected: 12/09/2023 (Approximate), Expires: 12/09/2024 [facility] Comment on above: Expected: 12/09/2023 (Approximate), Expi res: 12/09/2024 Start: 12-09-2023 End: 12-09-2024 Magnesium [Mass/volume] in Serum or Plasma Magnesium Lab Routine Stage 3a chronic kidney disease (HCC) (CMS/HCC) Expected: 12/09/2023 (Approximate), Expires: 12/09/2024 [facility] Comment on above: Expected: 12/09/2023 (Approximate), Expi res: 12/09/2024 Start: 11-11-2023 End: 11-11-2023 Patient encounter procedure 11/11/2023 9:15 AM EST Office Visit [facility] [address] [place] [address] [address] [place] [phone] Jose Martin Galicia MD [address] [place], [place] [id number] [facility] Start: 11-05-2023 End: 11-05-2023 Patient encounter procedure 11/05/2023 12:30 PM EST Office Visit [facility] [address] [place] [phone] Yovani Glover PA-C [address] [place] [address] [facility] Start: 08-20-2023 [facility] Start: 08-19-2023 Stool culture for bacteria Stool Culture [facility] Start: 08-18-2023 Blood chemistry [facility] Start: 08-18-2023 Duplex scan of lower limb veins US venous duplex LE BI [facility] Start: 08-18-2023 [facility] Start: 08-18-2023 Referral to Plasterer Helper [facility] Start: 08-17-2023 Hospital admission [facility] Start: 08-17-2023 Physical therapy procedure [facility] Start: 08-17-2023 Referral to occupational therapist [facility] Start: 08-17-2023 [facility] Start: 08-17-2023 Bacteria identified in Stool by Culture [facility] Start: 08-17-2023 [facility] Start: 08-17-2023 Bacteria identified in Blood by Culture [facility] Start: 08-17-2023 Blood culture for bacteria, including anaerobic screen Blood Culture [facility] Start: 07-14-2023 [facility] Start: 07-10-2023 Bacteria identified in Blood by Culture Blood Culture [facility] Start: 07-10-2023 Bacteria identified in Urine by Culture Urine Culture [facility] Start: 07-10-2023 Blood culture for bacteria, including anaerobic screen Blood Culture [facility] Start: 07-10-2023 Hospital admission [facility] Start: 02-26-2023 Hemoglobin A1c measurement Diabetes: Hemoglobin A1C [facility] Start: 12-31-2022 [facility] Start: 12-26-2022 Hospital admission [facility] Start: 12-26-2022 Referral to Plasterer Helper [facility] Start: 12-26-2022 [facility] Start: 12-26-2022 [facility] Start: 08-03-2020 Creatinine monitoring Creatinine monitoring [place] Start: 08-03-2020 Potassium monitoring Potassium monitoring [place] Start: 08-02-2019 Annual Wellness Visit (AWV) Annual Wellness Visit (AWV) [place] Start: 06-28-2019 Influenza vaccination Flu vaccine (#1) [place] Start: 2010 DEXA (modify frequency per FRAX score) DEXA (modify frequency per FRAX score) [place] Start: 2010 Fall Risk Screening Fall Risk Screening [facility] Start: 2010 Pneumococcal 65+ years Vaccine (1 of 2 - PCV13) Pneumococcal 65+ years Vaccine (1 of 2 - PCV13) [place] Start: 1995 Administration of varicella zoster vaccine Zoster (Shingles) Vaccine (1 of 2) [facility] Start: 1995 Breast cancer screen Breast cancer screen [place] Start: 1995 Colon cancer screen colonoscopy Colon cancer screen colonoscopy [place] Start: 1995 Shingles Vaccine (1 of 2) Shingles Vaccine (1 of 2) [place] Start: 1995 Zoster Vaccines (1 of 2) Zoster Vaccines (1 of 2) [facility] Start: 1967 DTaP/Tdap/Td Vaccines (1 - Tdap) DTaP/Tdap/Td Vaccines (1 - Tdap) [facility] Start: 1964 DTaP,Tdap and Td Vaccines (1 - Tdap) DTaP,Tdap and Td Vaccines (1 - Tdap) [facility] Start: 1964 DTaP/Tdap/Td vaccine (1 - Tdap) DTaP/Tdap/Td vaccine (1 - Tdap) [place] Start: 1964 Urine screening for protein Diabetes: Urine Protein Screening [facility] Start: 1963 Adult BMI Follow Up Plan Adult BMI Follow Up Plan [facility] Start: 1963 Diabetes mellitus screening Diabetes Screening [facility] Start: 1963 Hepatitis C screening Hepatitis C Screening [facility] Start: 1955 Glaucoma screening Diabetes: Retinopathy Screening [facility] Start: 1955 Lipid screen Lipid screen [place] Start: 1945 Creatinine measurement Creatinine Level [facility] Start: 1945 Hepatitis C screen Hepatitis C screen [place] Start: 1945 Lipid panel Lipid Panel [facility] Start: 1945 Medicare Annual Wellness Visit [facility] Start: 1945 Potassium measurement Potassium Level [facility] Start: 1945 Tobacco Counseling Tobacco Counseling [facility] Anion gap measurement [facility] Basophils [#/volume] in Blood by Automated count [facility] Basophils/100 leukoc ytes in Blood by Automated count [facility] BLOOD CULTURE 1 BLOOD CULTURE 1 Lab Routine 09/19/2024 12:[address] [facility] BLOOD CULTURE 2 BLOOD CULTURE 2 Lab Routine 09/19/2024 12:[address] [facility] Eosinophils [#/volum e] in Blood [facility] Eosinophils/100 leukocytes in Blood by Automated count [facility] Erythrocyte distribu tion width [Ratio] by Automated count [facility] Erythrocytes [#/volu me] in Blood [facility] Hematocrit [Volume Fraction] of Blood [facility] Hemoglobin [Mass/vol ume] in Blood [facility] Initiate Oxygen Ther apy Protocol Initiate Oxygen Therapy Protocol Respiratory Care Routine Daily until discontinued starting 08/02/2019 [facility] Comment on above: Daily until discontinued starting 2018 Leukocytes [#/volume ] corrected for nucleated erythrocytes in Blood by Automated coun [facility] Leukocytes [#/volume ] in Blood [facility] Lymphocytes [#/volum e] in Blood by Automated count [facility] Lymphocytes/100 leukocytes in Blood by Automated count [facility] MCH [Entitic mass] b y Automated count [facility] MCHC [Mass/volume] b y Automated count [facility] MCV [Entitic volume] by Automated count [facility] Monocytes [#/volume] in Blood by Automated count [facility] Monocytes/100 leukoc ytes in Blood by Automated count [facility] Neutrophils [#/volum e] in Blood by Automated count [facility] Neutrophils/100 leukocytes in Blood by Automated count [facility] Nucleated erythrocyt es [Presence] in Blood by Automated count [facility] Patient Education [facility] Work Phone: Patient referral [facility] Work Phone: Platelet mean volume [Entitic volume] in Blood by Automated count [facility] Platelets [#/volume] in Blood [facility] End: 08-02-2019 PREVIOUS SPECIMEN PREVIOUS SPECIMEN Lab Routine Once for 1 Occurrences starting 08/02/2019 until 08/02/2019 [facility] Comment on above: Once for 1 Occurrences starting 08/02/20 19 until 08/02/2019 PREVIOUS SPECIMEN PREVIOUS SPECI MEN Lab Routine 08/02/2019 9:43 AM EDT [facility] Urinalysis complete panel - Urine Urinalysis with microscopic Lab Routine Urinary tract bacterial infections Stage 3a chronic kidney disease (HCC) (CMS/HCC) Ordered: 12/09/2023 [facility] Comment on above: Ordered: 12/09/2023 End: 01-27-2024 US Heart Transthoracic [facility] Service Area Work Phone: Comment on above: Once for 1 Occurrences starting 01/27/20 24 until 01/27/2024 Immunizations Immunization Date Immunization Notes Care Provider Napoleon garibay 09-02-2023 Influenza, High-dose , Quadrivalent [facility] 09-02-2023 influenza virus vaccine, unspecified formulation Generic Provider [facility] 01-07-2023 SARS-COV-2 (COVID-19 ) vaccine, mRNA, spike protein, LNP, bivalent, preservative free, 30 mcg/0.3 mL dose, monserrat-sucrose formulation Gustavo Salas DO Work Phone: [facility] 12-31-2022 tuberculin skin test ; purified protein derivative solution, intradermal [facility] 07-30-2022 influenza, high dose seasonal, preservative-free [facility] 07-30-2022 Influenza, High-dose Seasonal, Quadrivalent, Preservative Free Gustavo Salas DO Work Phone: [facility] 06-08-2021 pneumococcal polysaccharide vaccine, 23 valent [facility] 03-09-2021 COVID-19 Amaraa Tanya Cesar Other [facility] Other 02-10-2021 COVID-19 Moderna Tanya Cesar Other [facility] Other 11-07-2020 influenza, high dose seasonal, preservative-free [facility] 11-07-2020 influenza, seasonal, injectable Jenna Engle MD Work Phone: [facility] Work Phone: 08-04-2020 Seasonal trivalent influenza vaccine, adjuvanted, preservative free [facility] 07-14-2018 influenza, high dose seasonal, preservative-free Jorge A Jackson Other [facility] Other 07-14-2018 influenza virus vaccine, unspecified formulation DO Gustavo Salas Work Phone: [facility] 07-13-2018 Influenza, High-dose , Quadrivalent [facility] 08-02-2017 influenza, high dose seasonal, preservative-free Jorge A Renetta Other [facility] Other 08-02-2017 influenza virus vaccine, unspecified formulation DO Gustavo Salas Work Phone: [facility] 08-01-2017 Influenza, High-dose , Quadrivalent Ta-Ginger [facility] 07-26-2016 pneumococcal conjuga te vaccine, 13 valent Jorge A Renetta Other [facility] Other 07-26-2016 influenza, high dose seasonal, preservative-free Jorge A Renetta Other [facility] Other 07-26-2016 influenza virus vaccine, unspecified formulation DO Gustavo Salas Work Phone: [facility] 07-25-2016 Influenza, High-dose , Quadrivalent Ta-[facility]inger [facility] 08-23-2015 influenza, high dose seasonal, preservative-free Jorge A [place] Other [facility] Other 08-23-2015 influenza virus vaccine, unspecified formulation DO Gustavo Salas Work Phone: [facility] 08-22-2015 Influenza, High-dose , Quadrivalent Ta-[facility]inger [facility] 10-28-2014 pneumococcal polysaccharide vaccine, 23 valent Jenna Engle MD Work Phone: [facility] Work Phone: 07-26-2014 influenza, seasonal, injectable Ta-Ginger [facility] 07-08-2014 influenza, injectabl e, quadrivalent, contains preservative Jorge A Renetta Other [facility] 09-28-2013 influenza, injectabl e, quadrivalent, contains preservative Jorge A [place] Other [facility] 12-04-2010 pneumococcal conjuga te vaccine, 7 valent Jorge A Renetta Other [facility] Other 12-04-2010 pneumococcal Conjuga te, unspecified formulation DO Gustavo Salas Work Phone: [facility] Payers Date Payer Category Payer Medicaid [id number] 2024 Medicare (Managed Care) [facility] MEDIC[facility] [id number] 2024 Unknown [id number] 2024 Self-pay [id number] 2023 Private Health Insurance [facility] DUAL COMPLETE [facility] D[facility] [id number] 2023-Present [address] [address] [place] [address] [id number] .[id number] 2022 Medicare [id number] .[id number] 2021 Medicaid [id number] 2018 Medicare [id number] 2017 Private Health Insurance [id number] 2014 Medicaid [id number] 2014 Medicaid MEDICAID [facility] J[facility] xxxxxxxxxxxx 2014-Present [phone] [address] [place] [address] xxxxxxxxxxxx [id number] 2014 Medicare [id number] 2014 Medicare MEDICARE MEDICAR E PART A AND B xxxxxxxxxxx 2014-Present [phone] [address] [address] [place] [address] xxxxxxxxxxx [id number] .[id number] 1945 Unknown [id number] 2.16.840.1.738002.3.579.2 .175 1945 Unknown [id number] 2.16.840.1.139857.3.579.2 .356 1945 Unknown [id number] 2.16.840.1.352242.3.579.2 .356 1945 Unknown [id number] 2.16.840.1.305649.3.579.2 .593 1945 Unknown [id number] 2.16.840.1.683272.3.579.2 .1246 1945 Unknown [id number] 2.16.840.1.035416.3.579.2 .1244 1945 Unknown [id number] 2.16.840.1.909360.3.579.2 .1244 1945 Unknown [id number] 2.16.840.1.940630.3.579.2 .727 1945 Unknown [id number] 2.16.840.1.810232.3.579.2 .727 1945 Unknown [id number] 2.16.840.1.938796.3.579.2 .1286 1945 Unknown [id number] 2.16.840.1.689754.3.579.2 .6 1945 Unknown [id number] 2.16.840.1.927785.3.579.2 .1286 1945 Unknown [id number] 2.16.840.1.617631.3.579.2 .1285 1945 Unknown [id number] 2.16.840.1.181141.3.579.2 .1285 1945 Unknown [id number] 2.16.840.1.967802.3.579.2 .1285 1945 Unknown [id number] 2.16.840.1.482150.3.579.2 .1285 1945 Unknown [id number] 2.16.840.1.180400.3.579.2 .1285 1945 Unknown [id number] 2.16.840.1.520890.3.579.2 .1285 1945 Unknown [id number] 2.16.840.1.765572.3.579.2 .6 1945 Unknown [id number] 2.16.840.1.529233.3.579.2 .1285 1945 Unknown [id number] 2.16.840.1.775944.3.579.2 .1285 1945 Unknown [id number] 2.16.840.1.167979.3.579.2 .1285 1945 Unknown [id number] 2.16.840.1.553338.3.579.2 .1285 1945 Unknown [id number] 2.16.840.1.675793.3.579.2 .1286 1945 Unknown [id number] 2.16.840.1.273102.3.579.2 .1286 1945 Unknown [id number] 2.16.840.1.482350.3.579.2 .1286 1945 Unknown [id number] 2.16.840.1.401648.3.579.2 .1286 1945 Unknown [id number] 2.16.840.1.924800.3.579.2 .128 1945 Unknown [id number] 2.16.840.1.607083.3.579.2 .1285 1945 Unknown [id number] 2.16.840.1.897438.3.579.2 .128 1945 Unknown [id number] 2.16.840.1.452306.3.579.2 .1285 1945 Unknown [id number] 2.16.840.1.112459.3.579.2 .1286 1945 Unknown [id number] 2.16.840.1.994455.3.579.2 .1285 1945 Unknown [id number] 2.16.840.1.366593.3.579.2 .128 1945 Unknown [id number] 2.16.840.1.564116.3.579.2 .1285 1945 Unknown [id number] 2.16.840.1.022073.3.579.2 .128 1945 Unknown [id number] 2.16.840.1.643266.3.579.2 .1285 1945 Unknown [id number] 2.16.840.1.522509.3.579.2 .1285 1945 Unknown [id number] 2.16.840.1.699031.3.579.2 .1285 1945 Unknown [id number] 2.16.840.1.944667.3.579.2 .1286 1945 Unknown [id number] 2.16.840.1.540337.3.579.2 .128 1945 Unknown [id number] 2.16.840.1.512837.3.579.2 .128 1945 Unknown [id number] 2.16.840.1.764491.3.579.2 .128 1945 Unknown [id number] 2.16.840.1.452507.3.579.2 .1285 1945 Unknown [id number] 2.16.840.1.608559.3.579.2 .1285 1945 Unknown [id number] 2.16.840.1.982890.3.579.2 .1285 1945 Unknown [id number] 2.16.840.1.205652.3.579.2 .128 1945 Unknown [id number] 2.16.840.1.633883.3.579.2 .1258 1945 Unknown [id number] 2.16.840.1.310763.3.579.2 .1258 1945 Unknown [id number] 2.16.840.1.835462.3.579.2 .1258 1945 Unknown [id number] 2.16.840.1.266309.3.579.2 .1258 1945 Unknown [id number] 2.16.840.1.458274.3.579.2 .1258 1945 Unknown [id number] 2.16.840.1.546826.3.579.2 .1258 1945 Unknown [id number] 2.16.840.1.081349.3.579.2 .1258 1945 Unknown [id number] 2.16.840.1.088280.3.579.2 .1258 1945 Unknown [id number] 2.16.840.1.189338.3.579.2 .1259 1945 Unknown [id number] 2.16.840.1.489221.3.579.2 .1259 1945 Unknown [id number] 2.16.840.1.220098.3.579.2 .1259 Medicare [id number] 2.16.840.1.574924.19 Unknown [facility] 2 [id number] Unknown [id number] 2.16.840.1.279290.3.579.2 .531 Unknown [id number] 2.16.840.1.400861.3.579.2 .531 Social History Date Type Detail Facility Start: 06-23-2012 End: 05-06-2024 Tobacco smoking status NHIS Former smoker [facility] Start: 12-26-2022 End: 12-08-2011 History of tobacco use Current smoker [place] End: 12-08-2011 History of tobacco use Cigarette Smoker [place] Start: 06-23-2012 End: 04-26-2023 Alcohol intake No [place] Start: 06-23-2012 Alcohol Comment stopped 20 years [place], [place] Start: 1945 Sex Assigned At Not on file [place] Start: 1945 Sex Assigned At Female F [facility] Start: 10-06-2023 End: 12-04-2023 Tobacco smoking status [facility] Smokes tobacco daily [facility] Start: 04-26-2023 End: 10-06-2023 Cigarettes smoked current (pack per day) - Reported 0.5 [facility] Start: 10-06-2023 End: 05-06-2024 Tobacco use and exposure Smokeless tobacco non-user [facility] Start: 10-18-2023 End: 07-23-2024 Alcohol intake Lifetime non-drinker (finding) [facility] How often to you hav e a drink containing alcohol? Never [facility] How many standard drinks containing alcohol do you have on a typical day? Patient does not drink [facility] History of tobacco use Passive smoker [facility] Start: 08-23-2023 Tobacco Comment ECW [noted 02/25 05/19] : Former smoker ; quit date 01/26/2022 [facility] Start: 03-23-2023 Alcohol Comment caffeine 2-3 c ups/day; pepsi 2 cans/day [facility] Start: 12-27-2023 End: 02-10-2024 Exposure to SARS-CoV-2 (event) Not sure [facility] Start: 01-30-2024 Tobacco smoking status Light t obacco smoker (finding) [facility] Start: 02-10-2024 Tobacco smoking stat NHIS Occasional tobacco smoker [facility] Work Phone: Medical Equipment Procedure Code Equipment Code Equipment Origin al Text Equipment Identifier Dates CL CLOSURE DEVIC E EXOSEAL [id number] FDA Start: 04-29-2019 CL STENT KELLY 2.75 X 23 FDA Start: 04-29-2019 Orthopaedic bone screw, non-bioabsorbable, non-sterile ()[id number] FDA Start: 09-02-2020 Femur nail, sterile ([id number] FDA Start: 09-02-2020 Spiral blade ()[id number] FDA Start: 09-02-2020 CL CLOSURE DEVIC E [...] of progress towards goal: lists sent to daughter Functional Status Date Assessment Result Facility 02-17-2024 Functional status 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 Baseline [facility] Work Phone: 02-14-2024 Functional status Patient Not at Baseline [facility] Work Phone: 01-30-2024 Functional Status N/A [facility] 08-20-2023 Functional status Patient at Baseline [facility] Work Phone: 07-14-2023 Functional status Patient at Baseline [facility] Work Phone: 12-31-2022 Functional status Patient Not at Baseline [facility] Work Phone: Mental Status Date Assessment Result Facility 02-17-2024 Cognitive function Cognitive Sta tus Patient at Baseline [facility] Work Phone: 02-14-2024 Cognitive function Cognitive Sta tus Patient at Baseline [facility] Work Phone: 08-20-2023 Cognitive function Cognitive Sta tus Patient at Baseline [facility] Work Phone: 07-14-2023 Cognitive function Cognitive Sta tus Patient at Baseline [facility] Work Phone: 12-31-2022 Cognitive function Cognitive Sta s Patient at Baseline [facility] Work Phone: Clinical Notes 01-18-2022 [...] Dima Colón MD on 02/19/2024 4:52 PM [facility] 02-16-2024 Progress note Note Date/Time February 16, 2024 12:07pm [facility] [address] [place] [address] Hospitalist Progress Note Signed Patient: Gera Perdue MR#: [id number] : 1945 Acct:[id number] Age/Sex: 78 / F Adm Date: 4 Loc: 3T Room: [address] [place] [address] Type: ADM IN Attending Dr: Lucho Grullon [...] Administration Hypomagnesemia <1.7 Mg/dl Melatonin 5 mg 04/20/24 15:06 Melatonin 5 Mg Tablet PO 02/14/25 [...] <Electronically signed by Lucho Grullon MD> 02/16/241911 [facility] Work Phone: 1(967) 546-379404-21-2024 Progress note Author Lucho Grullon [facility] February 16, 2024 12:09am Note Date/Time February 15, 2024 3:0 4pm [facility] [address] [place] [address] Hospitalist Progress Note Signed Patient: Gera Perdue MR#: [id number] : 1945 Acct:[id number] Age/Sex: 78 / F Adm Date: 4 Loc: 3T Room: [address] [place] [address] Type: ADM IN Attending Dr: Lucho Grullon [...] 12:00 02/15/24 12:00 02/15/24 12:00 02/15/24 12:00 Narrative: GEN: Pleasant, Cooperative, [...] Plan Documented By: Lucho Grullon MD 02/15/24 1457 Signed By: <Electronically signed by Lucho Grullon MD> 02/16/24 0009 [facility] Work Phone: 1(889) 589-641804-20-2024 History and physical note Author Lucho Grullon [facility] February 15, 2024 12:58am Note Date/Time February 14, 2024 5:5 9pm [facility] [address] [place] [address] Hospitalist H&P Signed Patient: Gera Perdue MR#: [id number] : 1945 Acct:[id number] Age/Sex: 78 / F Adm Date: 4 Loc: Room: [address] [place] [address] Type: ADM IN Attending Dr: Lucho Grullon [...] care Discussed with:?the medical team, the patient [facility] Medical History Intertrochanteric fracture of left hip [...] % (Auto) 23.7 % (.) 02/14/24 11:39 Becker % (Auto) 12.3 % (.) 02/14/24 11:39 Eos % (Auto) 0.4 % (.) 02/14/24 11:39 Baso % (Auto) 0.9 % (.) 02/14/24 11:39 Nucleat RBC Rel Count 0.1 /100 WBC (0-0.5) 02/14/24 11:39 Neut # (Auto) 8.5 x10E3/uL (1.8-7.7) H 02/14/24 11:39 Lymph # (Auto) 3.2 x10E3/uL (1.00-4.8) 02/14/24 11:39 Becker # (Auto) 1.7 x10E3/uL (0.0-0.8) H 02/14/24 [...] pH 5.5 (5.0-9.0) 02/14/24 11:50 Ur Specific [place] 1.024 (1.001-1.030) 02/14/24 11:50 Urine Protein 30 [...] 3 Documented By: Lucho Grullon MD 02/14/24 1752 Signed By: <Electronically signed by Lucho Grullon MD> 02/15/24 0058 [facility] Work Phone: 1(905) 138-102804-15-2024 History of Present illness Narrative* Jenna Engle [...] stage IIIb 5. Patient was transferred to [facility] from [facility] for nephrology consultation for ARTURO on CKD along with hyperkalemia. This occurred in September 2023. Prior to that she had been living [facility], and has been in and out of [facility] on multiple occasions, being treated [...] redirect to the Timeline version of the [place] Smart[employer]. Wt Readings from Last 3 Encounters: [...] smoker 01/06/2024 Frequent UTI 01/06/2024 Angina pectoris ([facility]) 12/04/2023 Coronary artery disease 12/04/2023 Dyspnea 12/04/2023 Essential hypertension 12/04/2023 Hyperlipidemia, mixed 12/04/2023 Assessment: 1. Shortness of breath Follow Up In Cardiology 2. 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 3. History of [...] further questions arise, Sincerely, Jenna Engle MD [facility] Follow up : prn Scribe Attestation By signing my name below, I, Ting English LPN attest that this documentation has been prepared [...] [facility]: 1(702) 162-153504-15-2024 Instructions* Patient Instructions* Hoa Buck LPN - [...] ordered as needed only documented in this [facility] Work Phone: 1(483) 862-716304-04-2024 Hospital Discharge instructions Patient Education 01/30/2024 14:50:25 [...] Treatment for this condition includes: Antibiotic medicine. Hvxl-gcj-oyrhsdj medicines to treat discomfort. Drinking enough water [...] Follow these instructions at home: Medicines Take inhr-fgv-bfsbwic and prescription medicines only as told by [...] provider. Document Revised: 05/26/2021 Document Reviewed: 05/26/2021 FilmBreak Patient Education 2022 Cater [employer] u. 01/30/2024 14:50:24 Urinary Incontinence Urinary Incontinence Urinary [...] nerve stimulation). ?For women, using a medical van driver to prevent urine leaks. This is a [...] right after experiencing incontinence. General instructions Take mowf-rzi-vqptrpj and prescription medicines only as told by [...] important. Where to find more information National [place] of Diabetes and Digestive and Kidney Diseases: www.niddk.nih.gov [place] [employer]: www.urologyhealth.org Contact a health care [...] provider. Document Revised: 05/19/2021 Document Reviewed: 05/19/2021 FilmBreak Patient Education 2022 Cater to u. 01/30/2024 14:50:21 Overactive Bladder, Adult Overactive Bladder, [...] your health care provider. General instructions Take zghr-ekb-jwzicsx and prescription medicines only as told by [...] provider. Document Revised: 07/03/2021 Document Reviewed: 07/03/2021 FilmBreak Patient Education 2022 Cater to u. Follow Up Care 01/13/2024 09:25:34 With:CHIP Ponce APRN, Renae Delaney, JYOTI, URL Address: When: Unknown Comments:pending cysto/UD [facility] Ryann 04-04-2024 Evaluation + Plan note Diagnostic Tests Pending * Urine Culture 01/30/24 [facility]03-11-2024 History of Present illness Narrative* Jenna [...] have been reviewed. Reviewed extensive records from [facility].. Past Medical History: 1. Longstanding nicotine dependence with COPD, currently hypoxemic respiratory failure on oxygen. 2. Primary hypertension 3. Obstructive sleep apnea 4. Chronic kidney disease stage IIIb 5. Patient was transferred to [facility] from [facility] for nephrology consultation for ARTURO on CKD along with hyperkalemia. This occurred in September 2023. Prior to that she had been living [facility], and has been in and out of [facility] on multiple occasions, being treated [...] 2 views; Future 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 Stage 3b chronic kidney disease (CMS/HCC) Microcytic anemia History of PTCA Essential hypertension Hyperlipidemia, mixed Obstructive sleep apnea syndrome Chronic respiratory failure with hypoxia (CMS/HCC) Frequent UTI BMI 32.0-32.9,adult Cough with expectoration Current smoker 1. Shortness of breath 2. 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 3. Stage 3b chronic kidney disease (CMS/HCC) 4. Microcytic anemia 5. History of PTCA 6. Essential hypertension 7. Hyperlipidemia, mixed 8. Obstructive sleep apnea syndrome 9. Chronic respiratory failure with hypoxia (CMS/HCC) 10. Frequent UTI 11. BMI 32.0-32.9,adult 12. Cough with expectoration 13. Current smoker Patient with multiple comorbidities, atherosclerotic shinnecock vessel coronary artery disease and riskfactors, recent [...] to smoke. She has history of atherosclerotic shinnecock vessel coronary artery disease with intolerance to [...] further questions arise, Sincerely, Jenna Engle MD [facility] Scribe Attestation By signing my name below, I, Yaquelin Lanette GUZMAN , Scribe attest that this documentation has [...] [facility]: 1(286) 722-893703-11-2024 Instructions* Patient Instructions* Yaquelin Garcia LPN - [...] two weeks then stop [facility]: 1(680) 577-746602-12-2024 History of Present illness Narrative* Lilliam Cheek, [employer] S[employer]K GRADER - 12/09/2023 11:00 AM EST Subjective Patient ID: Gera Perdue (: 1945) is a 78 y.o. female who presents for Hospital Follow-up. HPI Pt presents and daughter present for hospital follow up. Pt was admitted to [facility] in early September for ARTURO, UTI, and sepsis. Patient was then discharged to the [facility] in [place]. Pt was released from the [facility] on 11/28/2023. She is supposed to be getting HH however the company they were r eferred to is short staffed so her family has been caring for her. Today patient has complaints of shortness of breath and bilateral leg swelling. Pt denies urinary symptoms. She is currently finishing her Levaquin as she was started on at the [facility]. Pt did also receive weeks of Daptomycin [...] hours furosemide (Lasix) 40 MG tablet 1 / tab=60 mg once daily ipratropium-albuterol (Duo-Neb) 0.5-2.5 mg/3 mL nebulizer solution 3 mL, Nebulization, Every 12 hours levoFLOXacin (LEVAQUIN) 500 mg, Oral, Daily Melatonin 5 MG capsule 1 tablet, Oral, Nightly PRN metoprolol succinate XL (Toprol-XL) 50 MG 24 hr tablet TAKE 1 TABLET BY MOUTH EVERY DAY nystatin (Mycostatin) 270087 UNIT/GM powder APPLY TOPICALLY TO THE AFFECTED [...] related osteoporosis (CMS/HCC) Atherosclerotic heart disease of shinnecock coronary artery without angina pectoris (CMS/HCC) Carotid [...] Recent Results (from the past 2016 hour(s)) [facility] CULTURE URINE Collection Time: 09/22/23 12:00 PM Result Value Ref Range [facility] CULTURE URINE O:KLEPNE Isolated [facility] CULTURE URINE Urine Culture [place] Count [facility] CULTURE URINE >100,000 CFU/ml [facility] [...] List Items Addressed This Visit Essential hypertension (CMS/HCC) Relevant Orders CBC and differential Comprehensive metabolic panel Hyperlipidemia ([facility]) Stage 3a chronic kidney disease (HCC) ([facility]) Relevant Orders Urinalysis with microscopic Magnesium SOB (shortness of breath) - Primary Hospital discharge follow-up Other Visit Diagnoses Wheezing Urinary tract bacterial infections Relevant Orders Urinalysis with microscopic Urine culture (clean catch) Sepsis with acute renal failure without septic shock, due to unspecified organism, unspecified acute renal failure type ([facility]) Medication management Patient presents today with daughter for hospital/retirement follow up. Patient was admitted to [facility] (all hospital records are in Care Everywhere and were reviewed prior to and during appt). With UTI, ARTURO and sepsis. She did receive IV antibiotics through a PICC line which has since been removed. She was discharged to the [facility] for retirement for three weeks and was discharged on11/28/2023. Patient is currently finishing oral Levaquin. Patient denies urnary symptoms or fevers today. Patient does have complaints of leg swelling and shortness of breath. Assessment does consist of wheezing and rhonchi. Daughter did bring a large bag with multiple medications that needed reviewed and sorted out. This [employer]ADER did review each medication and compared it to the discharge summary from the [facility]. Each medication was discussed and placed in proper labeled bags to assist in the proper set up at home. Patient does have an order for HH however the company does not have enough staff. I am going to send an order to [facility] as this patient needs and requires a HH nurse, aide, clinical social worker and PT. CCM will also be consulted. Patient does discuss concerns of a prolapsed bladder being apossible cause of the UTI's which this does need assessed in a timely manner. Referral sent to [facility]IE[facility].Advised daughter to call office within 5-7 days if she has not heard anything to address the above r eferrals. Patient is currently supposed to be taking Prednisone 20 mg a day which she has not been doing. This was given at the [facility]. Due to the wheezing and shortness of breath I advised they to 40 mg a day for 3 days and finish the rest of the 20 mg a day until finished. Patient and daughter instructed to call office with any questions or to seek ER if symptoms worsen. Patient does have an infectious disease follow up on 12/02/2023 and manager communication on 01/06/2024. Patient will return to the [...] breathing machine I will address this with [facility]. Health Maintenance Topic Date Due Diabetes: [...] follow up with labs. documented in this encounterSt. Louis Behavioral Medicine [id number] Miscellaneous Notes* Telephone Encounter - Yvonne Kelly RN - 11/12/2023 2:42 PM EST Called Alethea-Patient's daughter back after r/s hospital followup with Dr Galicia for 11-22-2023. Our office does not participate with her Mom's insurance-[facility] [employer]. Appt cancelled. Alethea to call her Mom's [facility] [employer] Customer Service to see what Ellen GUZMAN is on her plan. Alethea to call office back so we can send a referral. [facility] Telephone encounter Note* Telephone Encounter - Yvonne Kelly RN - 11/12/2023 2:42 PM EST Called Alethea-Patient's daughter back after r/s hospital followup with Dr Galicia for 11-22-2023. Our office does not participate with her Mom's insurance-[facility] [employer]. Appt cancelled. Alethea to call her Mom's [facility] [employer] Customer Service to see what Ellen GUZMAN is on her plan. Alethea to call office back so we can send a referral. [facility]01-16-[facility]24 Miscellaneous Notes* Telephone Encounter - Nirmala Shirley - 11/12/2023 10:18 AM EST ALETHEA IS CALLING SINCE PT TESTED POSITIVE FOR COVID. PLEASE CALL AND ADVISE ABOUT THE HOSPITAL DISCHARGE FOLLOW UP SHE CAN BE REACHED AT [phone] * Telephone Encounter - Yvonne Kelly RN - 11/12/2023 10:18 AM EST Patient is in isolation until 11-17-2023. Appt r/s with Dr Galicia for 10:30a documented in this encounterTrumbull [facility]01-16-2024 Telephone encounter Note* Telephone Encounter - Nirmala Shirley - 11/12/2023 10:18 AM EST ALETHEA IS CALLING SINCE PT TESTED POSITIVE FOR COVID. PLEASE CALL AND ADVISE ABOUT THE HOSPITAL DISCHARGE FOLLOW UP SHE CAN BE REACHED AT [phone] [facility]01-[facility] Telephone encounter Note* Telephone Encounter - Yvonne Kelly RN - 11/12/2023 10:18 AM EST Patient is in isolation until 11-17-2023. Appt r/s with Dr Galicia for 10:30a [facility]01-03-2024 Miscellaneous Notes* Telephone Encounter - Avtar Ortega - 10/30/2023 12:37 PM EST New patient/Hospital Follow Up DX: Sleep Apnea Scheduled 01/10/24 w/ Dr. Gall[facility] Paperwork sent: 10/30/23. Please send paperwork to: [employer] @ [address] [address] Ins verified (OON notification); NO WORKMAN'S COMP; NO ACCIDENT documented in this encounterTrumbull [facility] Center01-03-2024 Telephone encounter Note* Telephone Encounter - Amrit Ortega - 10/30/2023 12:37 PM EST New patient/Hospital Follow Up DX: Sleep Apnea Scheduled 01/10/24 w/ Dr. Gallagher [facility] Paperwork sent: 10/30/23. Please send paperwork to: [email or web address] @ [email or web address] [address] [place] [address] Ins verified (OON notification); NO WORKMAN'S COMP; NO ACCIDENT [facility] [employer]10-24-2023 Discharge summary Author Jesus Alberto Aquino [facility] August 20, 2023 1:32pm Note Date/Time August 20, 2023 1 :32pm [facility] [address] [place] [address] Discharge Summary Signed Patient: Gera Perdue MR#: [id number] : 1945 Acct:[id number] Age/Sex: 77 / F Adm Date: 3 Loc: Room: [address] [place] [address]: Jesus Alberto Aquino MD Copies [...] 08:00 Discharge Plan Discharge Plan Patient Disposition: [facility] Facility Activity: No Activity Restriction Diet: Regular [...] by Jesus Alberto Aquino MD> 08/20/23 1332 [facility] Work Phone: 1(153) 202-984810-23-2023 Progress note Author Jesus Alberto Aquino [facility] August 19, 2023 2:43pm Note Date/Time August 19, 2023 2 :43pm [facility] [address] [place] [address] Hospitalist Progress Note Signed Patient: Gera Perdue MR#: [id number] : 1945 Acct:[id number] Age/Sex: 77 / F Adm Date: 3 Loc: 3T Room: [address] [place] [address] Type: ADM IN Attending Dr: Jesus Alberto [...] signed by Jesus Alberto Aquino MD> 08/19/231442 [facility] Work Phone: 1(807) 385-445310-22-2023 Progress note Author Jesus Alberto Aquino [facility] August 18, 2023 1:49pm Note Date/Time August 18, 2023 1 :49pm [facility] [address] [place] [address] Hospitalist Progress Note Signed Patient: Gera Perdue MR#: [id number] : 1945 Acct:[id number] Age/Sex: 77 / F Adm Date: 3 Loc: Room: [address] [place] [address] Type: ADM IN Attending Dr: Jesus Alberto [...] Dose Route Start Last Admin Trade Name Sanjayq PRN Reason Stop Dose Admin Acetaminophen 650 [...] 08/18/23 09:00 08/18/23 09:23 Pantoprazole 40 Mg Tablet. PO 08/17/24 08:59 40 mg DAILY JERILYN [...] signed by Jesus Alberto Aquino MD> 08/18/231348 [facility] Work Phone: 1(131) 101-815510-21-2023 History and physical note Author Jesus Alberto Aquino [facility] August 17, 2023 7:50pm Note Date/Time August 17, 2023 7 :50pm [facility] [address] [place] [address] Hospitalist H&P Signed Patient: Gera Perdue MR#: [id number] : 1945 Acct:[id number] Age/Sex: 77 / F Adm Date: 3 Loc: Room: [address] [place] [address] Type: ADM IN Attending Dr: Jesus Alberto [...] apnea Nephrolithiasis Pulm hypertension GERD Hypertension Dyslipidemia [facility] Medical History (Updated 08/17/23 @ 19:01 by [...] % (Auto) 7.8 % (.) 08/17/23 16:05 Becker % (Auto) 5.5 % (.) 08/17/23 16:05 Eos % (Auto) 0.0 % (.) 08/17/23 16:05 Baso % (Auto) 0.2 % (.) 08/17/23 16:05 Nucleat RBC Rel Count 0.1 /100 WBC (0-0.5) 08/17/23 16:05 Neut # (Auto) 25.4 x10E3/uL (1.8-7.7) H 08/17/23 16:05 Lymph # (Auto) 2.3 x10E3/uL (1.00-4.8) 08/17/23 16:05 Becker # (Auto) 1.6 x10E3/uL (0.0-0.8) H 08/17/23 [...] by Jesus Alberto Aquino MD> 08/17/23 1950 [facility] Work Phone: [phone]) 231-500310-21-2023 History and physical note Author Jesus Alberto Aquino [facility] August 17, 2023 7:50pm Note Date/Time August 17, 2023 7 :50pm [facility] [address] [place] [address] Hospitalist H&P Signed Patient: Gera Perdue MR#: [id number] : 1945 Acct:[id number] Age/Sex: 77 / F Adm Date: 3 Loc: Room: [address] [place] [address] Type: ADM IN Attending Dr: Jesus Alberto [...] apnea Nephrolithiasis Pulm hypertension GERD Hypertension Dyslipidemia [facility] Medical History (Updated 08/17/23 @ 19:01 by [...] % (Auto) 7.8 % (.) 08/17/23 16:05 Becker % (Auto) 5.5 % (.) 08/17/23 16:05 Eos % (Auto) 0.0 % (.) 08/17/23 16:05 Baso % (Auto) 0.2 % (.) 08/17/23 16:05 Nucleat RBC Rel Count 0.1 /100 WBC (0-0.5) 08/17/23 16:05 Neut # (Auto) 25.4 x10E3/uL (1.8-7.7) H 08/17/23 16:05 Lymph # (Auto) 2.3 x10E3/uL (1.00-4.8) 08/17/23 16:05 Becker # (Auto) 1.6 x10E3/uL (0.0-0.8) H 08/17/23 [...] by Jesus Alberto Aquino MD> 08/17/23 1950 [facility] Work Phone: 1(939) 846-710909-17-2023 Discharge summary Author Jolanta Mckenzie [facility] July 14, 2023 11:16am Note Date/Time July 14, 2023 11:16am [facility] [address] [place] [address] Discharge Summary Signed Patient: Gera Perdue MR#: [id number] : 1945 Acct:[id number] Age/Sex: 77 / F Adm Date: 3 Loc: Room: [address] [place] [address]: Jolanta Mckenzie MD Copies to: [...] breathing. Physical therapy wasconsulted with recommendation for retirement facility which patient is refusing understanding the [...] % (Auto) 69.9, Lymph % (Auto) 22.1, Becker % (Auto) 7.3, Eos % (Auto) 0.4, Baso % (Auto) 0.3, Nucleat RBC Rel Count 0.1, Neut # (Auto) 13.5 H, Lymph # (Auto) 4.3, Becker # (Auto) 1.4 H, Eos # (Auto) [...] signed by Jolanta Mckenzie MD> 07/14/23 1116 [facility] Work Phone: 1(954) 379-184509-16-2023 Progress note Author Jolanta Mckenzie [facility] July 13, 2023 1:59pm Note Date/Time July 13, 2023 10:40am [facility] [address] [place] [address] Hospitalist Progress Note Signed with Addenda Patient: Gera Perdue MR#: [id number] : 1945 Acct:[id number] Age/Sex: 77 / F Adm Date: 3 Loc: Room: [address] [place] [address] Type: ADM IN Attending Dr: Jolanta Mckenzie [...] but patient also on steroid. Discussed regarding retirement facility she has not decided yet. Give 1 dose of IV Lasix and resume oral Lasix from tomorrow. Addendum Documented By: Jolanta Mckenzie MD 07/13/23 1359 Addendum Signed By: <Electronically signed by Jolanta Mckenzie MD> 07/13/23 1359 Date of Service: 07/13/2023 Subjective Subjective Narrative: [...] <Electronically signed by Jolanta Mckenzie MD> 07/13/23 2178 [facility] Work Phone: 1(875) 184-865409-15-2023 Progress note Author Jolanta Mckenzie [facility] July 12, 2023 3:00pm Note Date/Time July 12, 2023 2:16pm [facility] [address] [place] [address] Hospitalist Progress Note Signed with Ling Patient: Gera Perdue MR#: [id number] : 1945 Acct:[id number] Age/Sex: 77 / F Adm Date: 3 Loc: Room: [address] [place] [address] Type: ADM IN Attending Dr: Jolanta Mckenzie [...] and switch to oral prednisone. PT recommended retirement facility which patient is refusing with plan [...] 1,000 Ml IV 07/09/24 13:59 75 mls/hr .[id number] JERILYN Administration Ceftriaxone Sodium 1 gm in [...] 135 3 Signed By: <Electronically signed by MD SEAN Cristobal> 07/12/23 1416 <Electronically signed by Jolanta Mckenzie MD> 07/12/23 1457 [facility] Work Phone: 1(649) 373-201709-14-2023 Progress note Author Jolanta Mckenzie [facility] July 11, 2023 12:47pm Note Date/Time July 11, 2023 10:10am [facility] [address] [place] [address] Hospitalist Progress Note Signed with Ling Patient: Gera Perdue MR#: [id number] : 1945 Acct:[id number] Age/Sex: 77 / F Adm Date: 3 Loc: Room: [address] [place] [address] Type: ADM IN Attending Dr: Jolanta Mckenzie [...] of Service: 07/11/2023 Subjective Subjective Narrative: Ms. Brought was examined resting comfortably bedside this morning [...] 1,000 Ml IV 07/09/24 13:59 75 mls/hr .[id number] JERILYN Administration Ceftriaxone Sodium 1 gm in [...] 9 Signed By: <Electronically signed by RES Bhvaesh Cristobal> 07/11/23 1010 <Electronically signed by Jolanta Mckenzie MD> 07/11/23 1246 [facility] Work Phone: 1(101) 278-430009-13-2023 History and physical note Author Jolanta Mckenzie [facility] July 10, 2023 1:50pm Note Date/Time July 10, 2023 1:44pm [facility] [address] [place] [address] Hospitalist H&P Signed Patient: Gera Perdue MR#: [id number] : 1945 Acct:[id number] Age/Sex: 77 / F Adm Date: 3 Loc: Room: [address] [place] [address] Type: ADM IN Attending Dr: Jolanta Mckenzie [...] negative unless noted below or in HPI [facility] Medical History Arthritis COPD (chronic obstructive pulmonary [...] % (Auto) 31.5 % (.) 07/10/23 08:44 Becker % (Auto) 6.5 % (.) 07/10/23 08:44 Eos % (Auto) 0.4 % (.) 07/10/23 08:44 Baso % (Auto) 0.2 % (.) 07/10/23 08:44 Nucleat RBC Rel Count 0.1 /100 WBC (0-0.5) 07/10/23 08:44 Neut # (Auto) 13.1 x10E3/uL (1.8-7.7) H 07/10/23 08:44 Lymph # (Auto) 6.7 x10E3/uL (1.00-4.8) H 07/10/23 08:44 Becker # (Auto) 1.4 x10E3/uL (0.0-0.8) H 07/10/23 [...] pH 8.5 (5.0-9.0) 07/10/23 08:44 Ur Specific [place] 1.022 (1.001-1.030) 07/10/23 08:44 Urine Protein 30 [...] signed by Jolanta Mckenzie MD> 07/10/23 1350 [facility] Work Phone: [phone]) 270-878903-06-2023 Discharge summary Author Jesus Alberto Aquino [facility] December 31, 2022 3:43pm Note Date/Time December 31, 2022 11:5 7am [facility] [address] [place], [place] [address] Discharge Summary Signed Patient: Gera Perdue MR#: [id number] : 1945 Acct:[id number] Age/Sex: 77 / F Adm Date: 3 Loc: 4N Room: 8S5931-[address]: Jesus Alberto Aquino MD Copies [...] complications occurred, and patient was discharged to retirement facility in stable condition on December 31. [...] % (Auto) N/A, Lymph % (Auto) N/A, Becker % (Auto) N/A, Eos % (Auto) N/A, Baso % (Auto) N/A, Nucleat RBC Rel Count N/A, Neut # (Auto) N/A, Lymph # (Auto) N/A, Becker # (Auto) N/A, Eos # (Auto) N/A, [...] 09:23 Discharge Plan Discharge Plan Patient Disposition: [facility] Facility Activity: No Activity Restriction Diet: Regular [...] by Jesus Alberto Aquino MD> 12/31/22 1546 [facility] Work Phone: [phone]) 976-922803-05-2023 Progress note Author Carla Hagan [facility] December 30, 2022 9:53am Note Date/Time December 30, 2022 9:53 am [facility] [address] [place] [address] Hospitalist Progress Note Signed Patient: Gera Perdue MR#: [id number] : 1945 Acct:[id number] Age/Sex: 77 / F Adm Date: 3 Loc: 4N Room: 3Y5127-4 Type: ADM IN Attending Dr: Carla Hagan [...] place, time and person. Morbidly obese HEENT: Norco conjunctiva and NL buccal mucosa Neck: Supple, [...] anemia Plan is to discharge patient to retirement unit for short period of time for [...] signed by Carla Hagan MD> 12/30/22 0953 [facility] Work Phone: 1([phone]) 203-457003-04-2023 Progress note Author Carla Hagan [facility] December 29, 2022 10:00am Note Date/Time December 29, 2022 10:0 0am [facility] [address] [place] [address] Hospitalist Progress Note Signed Patient: Gera Perdue MR#: [id number] : 1945 Acct:[id number] Age/Sex: 77 / F Adm Date: 3 Loc: 4N Room: 5P4369-9 Type: ADM IN Attending Dr: Carla Hagan [...] place, time and person. Morbidly obese HEENT: Norco conjunctiva and NL buccal mucosa Neck: Supple, [...] signed by Carla Hagan MD> 12/29/22 1000 [facility] Work Phone: [phone]) 540-317603-03-2023 Progress note Author Carla Hagan [facility] December 28, 2022 11:14am Note Date/Time December 28, 2022 9:27 am [facility] [address] [place] [address] Hospitalist Progress Note Signed Patient: Gera Perdue MR#: [id number] : 1945 Acct:[id number] Age/Sex: 77 / F Adm Date: 3 Loc: Room: 5B0297-7 Type: ADM IN Attending Dr: Carla Hagan [...] any cardiac arrhythmia.? Patient will likely require retirement facility on discharge. Patient is medically cleared for discharge pending placement approval. The patient would likely need to have additional work-up, investigation and therapeutic intervention but will be determined based on the clinical progression and follow-up test result Documented By: Carla Hagan MD 12/28/22 0918 Signed By: <Electronically signed by Carla aHgan MD> 12/28/22 1114 <Electronically signed by DO SEAN Armas> 12/28/22 1045 [facility] Work Phone: 1(671) 183-893403-02-2023 Progress note Author Carla Hagan [facility] December 27, 2022 12:40pm Note Date/Time December 27, 2022 9:25 am [facility] [address] [place], [place] [address] Hospitalist Progress Note Signed Patient: Gera Perdue MR#: [id number] : 1945 Acct:[id number] Age/Sex: 77 / F Adm Date: 3 Loc: 4N Room: 0I2560-7 Type: ADM IN Attending Dr: Carla Hagan [...] 3 Ml Ampul.Neb INHALATION 12/27/23 08:59 BID [facility] Atorvastatin Calcium 40 mg 12/27/22 21:00 Atorvastatin 40 Mg Tablet PO 12/27/23 20:59 QPM JERILYN Budesonide 0.5 mg 12/27/22 06:00 Budesonide 0.5 Mg/2 Ml Ampul.Neb INHALATION 12/27/23 05:59 BID@0600,1800 [facility] Bupropion HCl 300 mg 12/27/22 09:00 Bupropion 300 Mg Tab.Er.24h PO 12/27/23 08:59 QAM [facility] Calcium Carbonate 600 mg 12/27/22 09:00 Calcium Carbonate 500 Mg Tablet PO 12/27/23 08:59 DAILY [facility] Clopidogrel Bisulfate 75 mg 12/27/22 09:00 Clopidogrel Bisulfate 75 Mg Tablet PO 12/27/23 08:59 DAILY [facility] Heparin Sodium (Porcine) 5,000 unit 12/27/22 06:00 12/27/22 06:14 Heparin 5,000 Unit/Ml Vial SUBCUT 12/27/23 05:59 5,000 unit Q8HR [facility] Administration Hydromorphone HCl 0.5 mg 12/27/22 03:58 Hydromorphone 0.5 Mg/0.5 Ml Syringe IV-PUSH Q4H PRN Pain Scale 8 - 10 Lisinopril 5 mg 12/27/22 09:00 Lisinopril 5 Mg Tablet PO 12/27/23 08:59 DAILY [facility] Metoprolol Succinate 50 mg 12/27/22 09:00 Metoprolol Succinate 50 Mg Tab.Er.24h PO 12/27/23 08:59 DAILY [facility] Nicotine 1 each 12/27/22 00:30 12/27/22 00:48 Nicotine Patch 14 Mg/24hr 1 Each Patch.Td24 TRANSDERML 01/08/23 09:01 1 each DAILY [facility] Administration Nystatin 1 applic 12/27/22 00:30 12/27/22 00:48 Nystatin 100,000 Unit/Gram Powder 15 Gm Bottle TOPICAL 12/27/23 00:29 1 applic BID [facility] Administration Ondansetron HCl 4 mg 12/26/22 23:41 Ondansetron 4 Mg/2 Ml Vial IV-PUSH 12/26/23 23:40 Q8H PRN Nausea And Vomiting Pantoprazole Sodium 40 mg 12/27/22 09:00 Pantoprazole 40 Mg Tablet.Dr LEES 12/27/23 08:59 DAILY [facility] Paroxetine HCl 40 mg 12/27/22 09:00 Paroxetine 20 Mg Tablet PO 12/27/23 08:59 QAM [facility] Pregabalin 75 mg 12/27/22 09:00 Pregabalin 75 [...] 15 Gm Tube TOPICAL 12/27/23 08:59 BID [facility] Vitamin D 50 mcg 12/27/22 09:00 Cholecalciferol 25 Mcg (1,000 Units) Tablet PO 12/27/23 08:59 DAILY [facility] A&P - Hospitalist Assessment/Plan (1) Fall: (2) [...] any cardiac arrhythmia.? Patient will likely require retirement facility on discharge. Documented By: Carla Hagan MD 12/27/22 5309 Signed By: <Electronically signed by Carla Hagan MD> 12/27/22 1240 <Electronically signed by DO SEAN Armas> 12/27/22 5508 [facility] Work Phone: [phone] History and physical note Author Jolanta Mckenzie [facility] December 27, 2022 12:32am Note Date/Time December 26, 2022 11:0 5pm [facility] [address] [place] [address] Hospitalist H&P Signed with Ling Patient: Gera Perdue MR#: [id number] : 1945 Acct:[id number] Age/Sex: 77 / F Adm Date: 3 Loc: 4 Room: [address] [place] [address] Type: ADM IN Attending Dr: Jolanta Mckenzie MD Copies to: Gustavo Salas,DO Jolanta Mckenzie MD~ ADDENDUM2 List of allergies include aspirin [...] any cardiac arrhythmia. Patient will likely require retirement facility on discharge. Addendum Documented By: Jolanta Mckenzie MD 12/27/2229 Addendum Signed By: <Electronically signed by Jolanta Mckenzie MD> 12/27/22 003 HPI DATE OF EXAMINATION: 12/26/22 CHIEF COMPLAINT: [...] negative unless noted below or in HPI [facility] Vaccinated for [facility]-19?: Yes Medical History (Updated [...] % (Auto) 24.8 % (.) 12/26/22 19:36 Becker % (Auto) 10.1 % (.) 12/26/22 19:36 Eos % (Auto) 1.1 % (.) 12/26/22 19:36 Baso % (Auto) 0.5 % (.) 12/26/22 19:36 Nucleat RBC Rel Count 0.1 /100 WBC (0-0.5) 12/26/22 19:36 Neut # (Auto) 7.6 x10E3/uL (1.8-7.7) 12/26/22 19:36 Lymph # (Auto) 3.0 x10E3/uL (1.00-4.8) 12/26/22 19:36 Becker # (Auto) 1.2 x10E3/uL (0.0-0.8) H 12/26/22 [...] signed by MD SEAN Mann> 12/27/22 002 [facility] Work Phone: [phone] 700-464407-01-2022 NoteHISTORY: Bone density screening. COMPARISON: 08/03/2020 PROCEDURE: Imaging of the lumbar spine and right hip, and right forearm was obtained for bone density evaluation. FINDINGS: REGION BMD (g/cm??) YOUNG ADULT T-SCORE AGE-MATCHED Z-SCORE Right forearm (10/30) 0.554 -2.3 0.4 RIGHT NECK 0.592 -2.3 [...] and signed by Edgar Hooper on 05/01/2022 1000[facility] [id number] Evaluation note* Encounter Date Diagnosis Assessment Notes Treatment Notes Treatment Clinical Notes Mar, Major depressive disorder, recurrent severe without psychotic features (ICD-10 - F33.2) [facility] Other 03-24-2022 Evaluation note* Encounter Date Diagnosis Assessment Notes Treatment Notes Treatment Clinical Notes Dec, GERD (gastroesophageal reflux disease) (ICD-10 - K21.9) [facility] Other Discharge summary Author Jesus Alberto Aquino [facility] December 31, 2022 3:43pm Note Date/Time December 31, 2022 11:5 7am [facility] [address] [place] [address] Discharge Summary Signed Patient: Gera Perdue MR#: [id number] : 1945 Acct:[id number] Age/Sex: 77 / F Adm Date: 3 Loc: Room: [address] [place] [address]: Jesus Alberto Aquino MD Copies [...] complications occurred, and patient was discharged to retirement facility in stable condition on December 31. [...] % (Auto) N/A, Lymph % (Auto) N/A, Becker % (Auto) N/A, Eos % (Auto) N/A, Baso % (Auto) N/A, Nucleat RBC Rel Count N/A, Neut # (Auto) N/A, Lymph # (Auto) N/A, Becker # (Auto) N/A, Eos # (Auto) N/A, [...] 09:23 Discharge Plan Discharge Plan Patient Disposition: [facility] Facility Activity: No Activity Restriction Diet: Regular [...] by Jesus Alberto Aquino MD> 12/31/22 1543 [facility] Work Phone: Discharge summary Author Jolanta Mckenzie [facility] July 14, 2023 11:16am Note Date/Time July 14, 2023 11:16am [facility] [address] [place] [address] Discharge Summary Signed Patient: Gera Perdue MR#: [id number] : 1945 Acct:[id number] Age/Sex: 77 / F Adm Date: 3 Loc: Room: [address] [place] [address]: Jolanta Mckenzie MD Copies to: [...] breathing. Physical therapy wasconsulted with recommendation for retirement facility which patient is refusing understanding the [...] % (Auto) 69.9, Lymph % (Auto) 22.1, Becker % (Auto) 7.3, Eos % (Auto) 0.4, Baso % (Auto) 0.3, Nucleat RBC Rel Count 0.1, Neut # (Auto) 13.5 H, Lymph # (Auto) 4.3, Becker # (Auto) 1.4 H, Eos # (Auto) [...] signed by Jolanta Mckenzie MD> 07/14/23 1116 [facility] Work Phone: Discharge summary Author Michoacano Mckenzie [facility] February 17, 2024 4:57pm Note Date/Time February 17, 2024 4:4 6pm [facility] [address] [place] [address] Discharge Summary Signed Patient: Gera Perdue MR#: [id number] : 1945 Acct:[id number] Age/Sex: 78 / F Adm Date: 4 Loc: Room: [address] [place] [address]: Michoacano Mckenzie MD Copies to: MD Gustavo Forde DO~ Providers Date of Discharge: 02/17/24 Discharging Provider: [...] by physical and Occupational Therapy, who recommended retirement placement. Patient was very adamant that she [...] signed by Michoacano Mckenzie MD> 02/17/24 1657 [facility] Work Phone: Evaluation noteNo [employer] Other Evaluation noteNo assessment information available [facility] Work Phone: Evaluation note* Diagnosis Onset Date Resolution Status Accidental fall acute Head injury acute Inability to perform activities of daily living acute [facility] Work Phone: Evaluation note* Diagnosis Onset Date Resolution Status Accidental fall acute Acute hip pain acute Fall acute Head injury acute Inability to perform activities of daily living acute Physical deconditioning acut e [facility] Work Phone: Evaluation note* Diagnosis Onset Date Resolution Status Acute exacerbation of chroni c obstructive pulmonary disease acute CAD (coronary artery disease) acute Closed head injury acute Contusion of hip acute Fall acute Umbilical hernia acute UTI (urinary tract infection) acute [facility] Work Phone: Evaluation note* Diagnosis Onset Date Resolution Status Acute exacerbation of chroni c obstructive pulmonary disease acute CAD (coronary artery disease) acute Closed head injury acute Contusion of hip acute Fall acute Umbilical hernia acute UTI (urinary tract infection) acute Acute UTI acute ARTURO (acute kidney injury) ac jose rafael Weakness acute [facility] Work Phone: Evaluation note* Diagnosis SOB (shortness of breath)- Primary [...] emphysema type (CMS/HCC) documented in this encounter [facility] HealthcareEvaluation note* Diagnosis Shortness of breath 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 Stage 3b chronic [...] this encounter [facility] Work Phone: Evaluation note* Diagnosis Shortness of breath documented in this encounter [facility] Work Phone: Evaluation note* Diagnosis Shortness of breath 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 History of PTCA Postsurgical percutaneous transluminal coronary angioplasty status Essential hypertension Unspecified essential hypertension Hyperlipidemia, mixed Mixed hyperlipidemia Obstructive sleep apnea syndrome Obstructive sleep apnea (adult) (pediatric) BMI 35.0-35.9,adult Current smoker Chronic hypoxemic respiratory failure (Multi) Chronic respiratory failure Encounter to discuss test results Other specified counseling documented in this encounter [facility] Work Phone: Evaluation note* Diagnosis Onset Date Resolution Status Nausea and vomiting acute Pneumonia acute UTI (urinary tract infection) acute [facility] Work Phone: Evaluation note* Diagnosis Onset Date Resolution Status CAD (coronary artery disease) acute GERD (gastroesophageal reflux disease) acute Nausea and vomiting acute Pneumonia acute UTI (urinary tract infection) acute COPD (chronic obstructive pulmonary disease) chronic [facility] Work Phone: History and physical note Author Jolanta Mckenzie [facility] December 27, 2022 12:32am Note Date/Time December 26, 2022 11:0 5pm [facility] [address] [place] [address] Hospitalist H&P Signed with Addenda Patient: Gera Perdue MR#: [id number] : 1945 Acct:[id number] Age/Sex: 77 / F Adm Date: 3 Loc: N Room: [address] [place] [address] Type: ADM IN Attending Dr: Jolanta Mckenzie [...] any cardiac arrhythmia. Patient will likely require retirement facility on discharge. Addendum Documented By: Jolanta [...] % (Auto) 24.8 % (.) 12/26/22 19:36 Becker % (Auto) 10.1 % (.) 12/26/22 19:36 Eos % (Auto) 1.1 % (.) 12/26/22 19:36 Baso % (Auto) 0.5 % (.) 12/26/22 19:36 Nucleat RBC Rel Count 0.1 /100 WBC (0-0.5) 12/26/22 19:36 Neut # (Auto) 7.6 x10E3/uL (1.8-7.7) 12/26/22 19:36 Lymph # (Auto) 3.0 x10E3/uL (1.00-4.8) 12/26/22 19:36 Becker # (Auto) 1.2 x10E3/uL (0.0-0.8) H 12/26/22 [...] signed by MD SEAN Mann> 12/27/22 0022 [facility] Work Phone: History and physical note Author Jolanta Mckenzie [facility] July 10, 2023 1:50pm Note Date/Time July 10, 2023 1:44pm [facility] [address] [place] [address] Hospitalist H&P Signed Patient: Gera Perdue MR#: [id number] : 1945 Acct:[id number] Age/Sex: 77 / F Adm Date: 3 Loc: Room: [address] [place] [address] Type: ADM IN Attending Dr: Jolanta Mckenzie [...] negative unless noted below or in HPI [facility] Medical History Arthritis COPD (chronic obstructive pulmonary [...] % (Auto) 31.5 % (.) 07/10/23 08:44 Becker % (Auto) 6.5 % (.) 07/10/23 08:44 Eos % (Auto) 0.4 % (.) 07/10/23 08:44 Baso % (Auto) 0.2 % (.) 07/10/23 08:44 Nucleat RBC Rel Count 0.1 /100 WBC (0-0.5) 07/10/23 08:44 Neut # (Auto) 13.1 x10E3/uL (1.8-7.7) H 07/10/23 08:44 Lymph # (Auto) 6.7 x10E3/uL (1.00-4.8) H 07/10/23 08:44 Becker # (Auto) 1.4 x10E3/uL (0.0-0.8) H 07/10/23 [...] pH 8.5 (5.0-9.0) 07/10/23 08:44 Ur Specific [place] 1.022 (1.001-1.030) 07/10/23 08:44 Urine Protein 30 [...] signed by Jolanta Mckenzie MD> 07/10/23 1350 [facility] Work Phone: History general Narrative [...] severe diverticulosis, >10cm removed. [facility] EGD Surgical History colostomy 01/07 per [facility] Surgical History Bowel resection with reversal o f colostomy 02-25-2015 Surgical History SKIN BIOPSY X 2 ON FACE 6 Surgical History left IM nailing 09-02-20 Surgical History left hip FX 10/2020 Hospitalization History 6 child births Hospitalization History See Above Hospitalization History Kidney stones Hospitalization History [facility] [place] o bowel obstruction 10/2019 Hospitalization History Fell/ UTI Hospitalization History [facility] pt fell left hip fr acture 10/2020 [facility] Other Hospital course Narrative No data available for this section [facility] Hospital Discharge instructions Additional Instructions Use the albuterol inhaler as prescribed here COPD exacerbation take prednisone as prescribed. Take Tylenol as needed for hip pain. Follow-up with your PCP for reevaluation in 5 to 7 days.[facility] Work Phone: Hospital Discharge instructions [...] fall precautions Care to be managed by [facility] Work Phone: Hospital Discharge instructionsAmbulatory Orders* [...] wraps to BLE. Change daily and prn -[facility] Work Phone: Hospital Discharge instructions [...] fall precautions Care to be managed by [facility] Work Phone: Hospital Discharge instructions No data available for this section [facility] filed[facility]ed in this encounter [facility] on filedocumented in this encounter [facility]Not on filedocumented in this encounter [facility] Author Carla Hagan [facility] December 27, 2022 12:40pm Note Date/Time December 27, 2022 9:25 am [facility] [address] [place] [address] Hospitalist Progress Note Signed Patient: Gera Perdue MR#: [id number] : 1945 Acct:[id number] Age/Sex: 77 / F Adm Date: 3 Loc: 4N Room: 9D8180-9 Type: ADM IN Attending Dr: Carla Hagan [...] Ipratropium/Albuterol 0.5-3 Mg 3 Ml Ampul.Neb INHALATION 03/01/24 08:59 BID JERILYN Atorvastatin Calcium 40 mg 12/27/22 21:00 Atorvastatin 40 Mg Tablet PO 12/27/23 20:59 QPM [facility] Budesonide 0.5 mg 12/27/22 06:00 Budesonide 0.5 Mg/2 Ml Ampul.Neb INHALATION 12/27/23 05:59 BID@0600,1800 [facility] Bupropion HCl 300 mg 12/27/22 09:00 Bupropion 300 Mg Tab.Er.24h PO 12/27/23 08:59 QAM [facility] Calcium Carbonate 600 mg 12/27/22 09:00 Calcium Carbonate 500 Mg Tablet PO 12/27/23 08:59 DAILY [facility] Clopidogrel Bisulfate 75 mg 12/27/22 09:00 Clopidogrel Bisulfate 75 Mg Tablet PO 12/27/23 08:59 DAILY [facility] Heparin Sodium (Porcine) 5,000 unit 12/27/22 06:00 12/27/22 06:14 Heparin 5,000 Unit/Ml Vial SUBCUT 12/27/23 05:59 5,000 unit Q8HR [facility] Administration Hydromorphone HCl 0.5 mg 12/27/22 03:58 Hydromorphone 0.5 Mg/0.5 Ml Syringe IV-PUSH Q4H PRN Pain Scale 8 - 10 Lisinopril 5 mg 12/27/22 09:00 Lisinopril 5 Mg Tablet PO 12/27/23 08:59 DAILY [facility] Metoprolol Succinate 50 mg 12/27/22 09:00 Metoprolol Succinate 50 Mg Tab.Er.24h PO 12/27/23 08:59 DAILY [facility] Nicotine 1 each 12/27/22 00:30 12/27/22 00:48 Nicotine Patch 14 Mg/24hr 1 Each Patch.Td24 TRANSDERML 01/08/23 09:01 1 each DAILY [facility] Administration Nystatin 1 applic 12/27/22 00:30 12/27/22 00:48 Nystatin 100,000 Unit/Gram Powder 15 Gm Bottle TOPICAL 12/27/23 00:29 1 applic BID [facility] Administration Ondansetron HCl 4 mg 12/26/22 23:41 Ondansetron 4 Mg/2 Ml Vial IV-PUSH 12/26/23 23:40 Q8H PRN Nausea And Vomiting Pantoprazole Sodium 40 mg 12/27/22 09:00 Pantoprazole 40 Mg Tablet. PO 12/27/23 08:59 DAILY [facility] Paroxetine HCl 40 mg 12/27/22 09:00 Paroxetine 20 Mg Tablet PO 12/27/23 08:59 QAM [facility] Pregabalin 75 mg 12/27/22 09:00 Pregabalin 75 [...] 15 Gm Tube TOPICAL 12/27/23 08:59 BID [facility] Vitamin D 50 mcg 12/27/22 09:00 Cholecalciferol 25 Mcg (1,000 Units) Tablet PO 12/27/23 08:59 DAILY [facility] A&P - Hospitalist Assessment/Plan (1) Fall: (2) [...] any cardiac arrhythmia.? Patient will likely require retirement facility on discharge. Documented By: Carla Hagan MD 12/27/22 5071 Signed By: <Electronically signed by Carla Hagan MD> 12/27/22 1240 <Electronically signed by DO SEAN Armas> 12/27/22 1131 [facility] Work Phone: Progress note Author Carla Hagan [facility] December 28, 2022 11:14am Note Date/Time December 28, 2022 9:27 am [facility] [address] [place] [address] Hospitalist Progress Note Signed Patient: Gera Perdue MR#: [id number] : 1945 Acct:[id number] Age/Sex: 77 / F Adm Date: 3 Loc: Room: [address] [place] [address] Type: ADM IN Attending Dr: Carla Hagan [...] any cardiac arrhythmia.? Patient will likely require retirement facility on discharge. Patient is medically cleared for discharge pending placement approval. The patient would likely need to have additional work-up, investigation and therapeutic intervention but will be determined based on the clinical progression and follow-up test result Documented By: Carla Hagan MD 12/28/22 0918 Signed By: <Electronically signed by Carla Hagan MD> 12/28/22 1114 <Electronically signed by DO SEAN Armas> 12/28/22 1048 [facility] Work Phone: Progress note Author Carla Hagan [facility] December 29, 2022 10:00am Note Date/Time December 29, 2022 10:0 0am [facility] [address] [place] [address] Hospitalist Progress Note Signed Patient: Gera Perdue MR#: [id number] : 1945 Acct:[id number] Age/Sex: 77 / F Adm Date: 3 Loc: 4N Room: [address] [place] [address] Type: ADM IN Attending Dr: Carla Hagan [...] place, time and person. Morbidly obese HEENT: Norco conjunctiva and NL buccal mucosa Neck: Supple, [...] signed by Carla Hagan MD> 12/29/22 1000 [facility] Work Phone: Progress note Author Carla Hagan [facility] December 30, 2022 9:53am Note Date/Time December 30, 2022 9:53 am [facility] [address] [place] [address] Hospitalist Progress Note Signed Patient: Gera Perdue MR#: [id number] : 1945 Acct:[id number] Age/Sex: 77 / F Adm Date: 3 Loc: Room: [address] [place] [address] Type: ADM IN Attending Dr: Carla Hagan [...] place, time and person. Morbidly obese HEENT: Norco conjunctiva and NL buccal mucosa Neck: Supple, [...] JERILYN Hydromorphone HCl 0.5 mg 12/27/22 03:58 03/04/23 12:30 Hydromorphone 0.5 Mg/0.5 Ml Syringe IV-PUSH [...] anemia Plan is to discharge patient to retirement unit for short period of time for [...] <Electronically signed by Carla Hagan MD> 12/30/22 0983 [facility] Work Phone: Progress note Author Jolanta Mckenzie [facility] July 11, 2023 12:47pm Note Date/Time July 11, 2023 10:10am [facility] [address] [place] [address] Hospitalist Progress Note Signed with Addolivia Patient: Gera Perdue MR#: [id number] : 1945 Acct:[id number] Age/Sex: 77 / F Adm Date: 3 Loc: Room: [address] [place] [address] Type: ADM IN Attending Dr: Jolanta Mckenzie [...] 1,000 Ml IV 07/09/24 13:59 75 mls/hr .[id number] JERILYN Administration Ceftriaxone Sodium 1 gm in [...] signed by Jolanta Mckenzie MD> 07/11/23 1246 [facility] Work Phone: Progress note Author Jolanta Mckenzie [facility] July 12, 2023 3:00pm Note Date/Time July 12, 2023 2:16pm [facility] [address] [place] [address] Hospitalist Progress Note Signed with Addenda Patient: Gera Perdue MR#: [id number] : 1945 Acct:[id number] Age/Sex: 77 / F Adm Date: 3 Loc: Room: [address] [place] [address] Type: ADM IN Attending Dr: Jolanta Mckenzie [...] and switch to oral prednisone. PT recommended retirement facility which patient is refusing with plan to go home with home health care. Addendum Documented By: Jolanta Mckenzie MD 07/12/231499 Addendum Signed By: <Electronically signed by Jolanta [...] 1,000 Ml IV 07/09/24 13:59 75 mls/hr .[id number] JERILYN Administration Ceftriaxone Sodium 1 gm in [...] Capsule PO 01/06/24 20:59 75 mg BID JERILNY Administration Sodium Chloride 0 ml 07/10/23 09:28 [...] 135 3 Signed By: <Electronically signed by MD SEAN Cristobal> 07/12/23 1416 <Electronically signed by Jolanta Mckenzie MD> 07/12/23 1457 [facility] Work Phone: Progress note Author Jolanta Mckenzie [facility] July 13, 2023 1:59pm Note Date/Time July 13, 2023 10:40am [facility] [address] [place] [address] Hospitalist Progress Note Signed with Addenda Patient: Gera Perdue MR#: [id number] : 1945 Acct:[id number] Age/Sex: 77 / F Adm Date: 3 Loc: Room: [address] [place] [address] Type: ADM IN Attending Dr: Jolanta Mckenzie [...] but patient also on steroid. Discussed regarding retirement facility she has not decided yet. Give 1 dose of IV Lasix and resume oral Lasix from tomorrow. 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 Latest Code Status on File Code Status Date Activated Date Inactivated Comments Full Code 08/02/2019 12:07 AM Advance Directive Response Recorded Date/ Time Advance Directives Yes May 13 2:57pm Advance Directive Response Recorded Date/ Time Advance Directives Yes May 13 1:57pm Documents on File Type Date Recorded 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 IN-PATIENT SERVICE [facility] Discharge Summary Patient ID: Gera Perdue : 1945 ACCOUNT: [id number] Patient's PCP: Physician Generic (Inactive) Admit Date: [...] Admitting Physician: Verenice Chilel MD PCP: Physician Berenice (Inactive) Discharging Nurse: [facility] [...] Assisted Dressing Assisted Toileting Assisted Feeding Independent Metal Bonding Assembler Independent Med Delivery whole Wound Care Documentation [...] applicable) Name: Address: Dialysis Schedule: Phone: Fax: Battery Tester/Supply Chain Procurement Manager signature: {Esignature:[id number]} PHYSICIAN SECTION Prognosis: Good Condition at Discharge: [...] sent through Care Everywhere. * Low-Fiber Diet ([place]i) documented in this encounter History of Present Illness * Ellen Gonzalez MD - 08/04/2019 10:[address] [facility] IN-PATIENT SERVICE [facility] Progress Note 08/04/2019 10:03 AM Name: Gera Perdue Acct: [id number] Room: 0236/0236-01 Day: 3 Admit Date: 08/01/2019 [...] Net 1213 ml Labs: Hematology: Recent Labs 08/02/1961208/03/19 0505 08/04/19 0550 WBC 9.3 7.8 7.5 RBC 4.19 4.10 3.58* HGB 11.7* 11.4* 9.9* HCT 36.3 37.6 32.7* MCV 86.6 91.7 91.3 MCH 27.9 27.8 27.7 MCHC 32.2 30.3 30.3 RDW 15.6* 15.5* 15.0* PLT 215 199 184 MPV 9.3 9.4 9.1 Chemistry: Recent Labs 08/02/1961208/02/19 0943 08/03/19 0505 [...] Gonzalez MD - 08/03/2019 12:[address] [facility] IN-PATIENT SERVICE [facility] Progress Note 08/03/2019 12:24 PM Name: Gera Perdue Acct: [id number] Room: [facility] Day: 2 Admit Date: 08/01/2019 11:58 PM [...] planning - ambulate with PT. discharge tomorrow Eleln Gonzalez MD 08/03/2019 12:24 PM * Chanel Willis MD - 08/03/2019 8:36 AM EDT Trauma, Emergency and Critical Surgical Services PROGRESS NOTE (Garrick 2.0) PATIENT NAME: Gera WAHL RECORD NO. [id number] DATE: 08/03/2019 PRIMARY CARE PHYSICIAN: Physician Generic [...] 6.4 6.2* RADIOLOGY: No new images Sloane Gamaliel, DO08/03/19, 6:30 AM Attending Note I have reviewed the above [facility] resident progress note and I either performed [...] 08/02/2019 9:16 AM EDT Attempted to call [facility] pharmacy in [place] to retrieve home medication list, but pharmacy does not open until 10:00 am. Rn Integrated will attempt again after this time. * [...] Coronary atherosclerosis of unspecified type of vessel, shinnecock or graft Mixed hyperlipidemia Essential hypertension Unspecified [...] Referral Specialty Diagnoses / Procedures Referred By Susanne russell Referred To Contact Radiology Diagnoses Shortness of breath Procedures XR chest 2 views Jenna Engle MD [address] [place] [address] [address] [place] [address] Referral ID Status Reason Start Date Expiration Date Visits Requested Visits Authorized [id number] Authorized Perform Procedure 01/06/2024 01/05/2025 1 1 Specialty Diagnoses / Procedures Referred By Contac t Referred To Contact Diagnoses Shortness of breath Procedures ECG 12 Lead Jenna Engle MD [address] [facility] [address] [place] [address] Referral ID Status Reason Start Date Expiration Date V isits Requested Visits Authorized [id number] Authorized 01/06/2024 01/05/2025 1 1 Specialty Diagnoses / Procedures Referred By Contac t Referred To Contact Cardiology Diagnoses Shortness of breath Procedures Follow Up In Cardiology Jenna Engle MD [address] [facility] [address] [place] [address] Jenna Engle MD [address] [facility] [address] [place] [address] Referral ID Status Reason Start Date Expiration Date V isits Requested Visits Authorized [id number] Authorized 01/06/2024 01/05/2025 1 1 Specialty Diagnoses / Procedures Referred By Contac t Referred To Contact Cardiology Diagnoses Shortness of breath Procedures Transthoracic Echo Complete MO ECHO TTHRC R-T 2D W/WOM-MODE COMPL SPEC&COLR D Jenna Engle MD [address] [facility] [address] [place] [address] Referral ID Status Reason Start Date Expiration Date Visits Requested Visits Authorized [id number] Pending Review Perform Procedure 01/06/2024 01/05/2025 1 1 Specialty Diagnoses / Procedures Referred By Contac t Referred To Contact Plasterer Helper Diagnoses Essential hypertension (CMS/HCC) Stage 3a chronic kidney disease (HCC) (CMS/HCC) Sepsis with acute renal failure without septic shock, due to unspecified organism, unspecified acute renal failure type (CMS/HCC) Medication management Procedures MO OFFICE/OUTPATIENT NEW HIGH MDM 60 MINUTES Lilliam Cheek, RAW SILK GRADER [address] [place] [address] [facility] [address] [place] [address] Referral ID Status Reason Start Date Expiration Date Visits Requested Visits Authorized [id number] Pending Review Specialty Services Required 12/09/2023 06/06/2024 1 1 Specialty Diagnoses / Procedures Referred By Contac t Referred To Contact Home Health Services Diagnoses SOB (shortness of breath) Wheezing Urinary tract bacterial infections Essential hypertension ([facility]/HCC) Mixed hyperlipidemia ([facility]/HCC) Stage 3a chronic kidney disease (HCC) ([facility]) Sepsis with acute renal failure without septic shock, due to unspecified organism, unspecified acute renal failure type ([facility]) Medication management Lilliam Cheek, RAW SILK GRADER [address] [place] [address] Referral ID Status Reason Start Date Expiration Date Visits Requested Visits Authorized [id number] Pending Review Specialty Services Required 12/09/2023 02/07/2024 999 999 Specialty Diagnoses / Procedures Referred By Contac t Referred To Contact Obstetrics and Gynecology Diagnoses Urinary tract bacterial infections Female bladder prolapse Procedures MO OFFICE/OUTPATIENT NEW HIGH MDM 60 MINUTES Lilliam Cheek, RAW SILK GRADER [address] [place] [address] Cee Cordero DO [address] [place] [address] Referral ID Status Reason Start Date Expiration Date Visits Requested Visits Authorized [id number] Pending Review Specialty Services Required 12/09/2023 06/06/2024 1 1 Additional Source Comments INFORMATION SOURCE (unrecogn ized section and content) DATE CREATED AUTHOR 07/12/2018 [facility] DATE CREATED AUTHOR AUTHOR'S ORGANIZ ATION 08/29/2019 [facility] DATE CREATED AUTHOR AUTHOR'S ORGANIZ ATION 12/24/2020 [facility] DATE CREATED AUTHOR AUTHOR'S ORGANIZ ATION 05/01/[address] [facility] dical Specialist DATE CREATED AUTHOR AUTHOR'S ORGANIZ ATION 01/02/2023 [facility] DATE CREATED AUTHOR AUTHOR'S ORGANIZ ATION 01/21/2023 [facility] DATE CREATED AUTHOR AUTHOR'S ORGANIZ ATION 02/01/2024 [facility] DATE CREATED AUTHOR AUTHOR'S ORGANIZ ATION 02/16/2024 [facility] DATE CREATED AUTHOR AUTHOR'S ORGANIZ ATION 02/26/2024 [facility] DATE CREATED AUTHOR AUTHOR'S ORGANIZ ATION 04/23/2024 [facility] DATE CREATED AUTHOR AUTHOR'S ORGANIZ ATION 05/02/2024 [facility] DATE CREATED AUTHOR AUTHOR'S ORGANIZ ATION 07/04/[address] [facility] dical Specialists [facility] DATE CREATED AUTHOR AUTHOR'S ORGANIZ ATION 09/27/2024 [facility] Reason for Visit (unrecogniz ed section and content) Status Reason Specialty Diagnoses / Procedures Referre d By Contact Referred To Contact Diagnoses Small bowel obstruction (HCC) LEONARDO Verenice Chilel MD [address] [address] [facility] Reason Onset Date Comments Neuro Appt 10/30/2023 Reason Comments Hospital Follow-up Reason Comments New Patient Visit Old [facility] patient Specialty Diagnoses / Procedures Referred By Susanne russell Referred To Contact Cardiology Diagnoses Shortness of breath Procedures Transthoracic Echo Complete MO ECHO TTHRC R-T 2D W/WOM-MODE COMPL SPEC&COLR D Jenna Engle MD [address] [facility] [address] [place] [address] Referral ID Status Reason Start Date Expiration Date Visits Requested Visits Authorized [id number] Authorized Perform Procedure 01/06/2024 01/05/2025 1 1 Reason Comments Follow-up 1m echo results Specialty Diagnoses / Procedures Referred By Susanne russell Referred To Contact Cardiology Diagnoses Shortness of breath Procedures Follow Up In Cardiology Jenna Engle MD [address] [facility] [address] [place] [address] Jenna Engle MD [address] [place] [address] [address] [place] [address] Referral ID Status Reason Start Date Expiration Date V isits Requested Visits Authorized [id number] Authorized 01/06/2024 01/05/2025 1 1 Care Teams (unrecognized sec tion and content) Team Status: Inactive Member Role Status Dates Gustavo Salas , Primary Care Provider Active Hilario Yeung , DO Emergency Provider Active Team Status: Active Member Role Status Dates Gustavo Salas , DO Primary Care Provider Active Team Status: Inactive Member Role Status Dates Gustavo Salas , Primary Care Provider Active Richard Pearson , [...] DO Primary Care Provider Active Kadie Jones , [facility]- Emergency Provider Active Team Status: Active Member Role Status Dates Gustavo Salas DO Primary Care Provider Active Marshall Dominguez DO Emergency Provider Active Jolanta Mckenzie MD Admit Provider, Attending Provider Active Team Status: Inactive Member Role Status Dates Gustavo Salas DO Primary Care Provider Active Marshall Dominguez DO Emergency Provider Active Jolanta Mckenzie MD Admit Provider, Attending Provider Active Team Status: Active Member Role Status Dates Maury Morrissey DO Emergency Provider Active Gustavo Salas DO Primary Care Provider Active Jesus Alberto Aquino MD Admit Provider, Attending Provider Active Team Status: Inactive Member Role Status Dates Maury Morrissey DO Emergency Provider Active Gustavo Salas DO Primary Care Provider Active Jesus Alberto Aquino MD Admit Provider, Attending Provider Active Director Of Casino Marketing Relationship Specialty Start Date End Date Mely Camarillo APRN-JIMMY [address] [place] [address] PCP - General Family Medicine 04/08/19 Director Of Casino Marketing Relationship Specialty Start Date End Date Mely Camarillo APRN-PHARMACY MANAGER [address] [place] [address] PCP - General Family Medicine 04/08/19 Director Of Casino Marketing Relationship Specialty Start Date End Date Mely Camarillo APRN-PHARMACY MANAGER [address] [place] [address] PCP - General Family Medicine 04/08/19 Director Of Casino Marketing Relationship Specialty Start Date End Date Gustavo Salas DO [address] [place] [address] PCP - General Internal Medicine 12/09/23 Leah Burgos, LASHAY [address] [place] [address] Registered Nurse Internal Medicine 12/09/23 Director Of Casino Marketing Relationship Specialty Start Date End Date Gustavo Salas DO [address] [place] [address] PCP - General Internal Medicine 01/06/24 Director Of Casino Marketing Relationship Specialty Start Date End Date Gustavo Salas DO [address] [place] [address] PCP - General Internal Medicine 01/06/24 Director Of Casino Marketing Relationship Specialty Start Date End Date Gustavo Salas DO [address] [place] [address] PCP - General Internal Medicine 01/06/24 Team Status: Inactive Member Role Status Dates Gustavo Salas DO Primary Care Provider Active Start: January 06, 2024 End: January 06, 2024 Jenna Engle MD Attending Provider Active Star t: January 06, 2024 End: January 06, 2024 Team Status: Active Member Role Status Dates Gustavo Salas DO Primary Care Provider Active Start: February 14, 2024 Kadie Jones [facility]- Emergency Provider Active Start: February 14, 2024 Lucho Grullon MD Admit Provider, Atte nding Provider Active Start: February 14, 2024 Team Status: Inactive Member Role Status Dates Gustavo Salas DO Primary Care Provider Active Start: February 14, 2024 End: February 17, 2024 Kadie Jones [facility] Emergency Provider Active Start: February 14, 2024 End: February 17, 2024 Lucho Grullon MD Admit Provider Active Start: February 14, 2024 End: February 17, 2024 Michoacano Mckenzie MD Attending Provider Active Start: February 14, 2024 End: February 17, 2024 Team Status: Active Member Role Status Dates Gustavo Salas DO Primary Care Provider Active Start: February 14, 2024 Kadie Jones [facility] Emergency Provider Active Start: February 14, 2024 Lucho Grullon MD Admit Provider, Atte nding Provider, Other Provider Active Start: February 14, 2024 Director Of Casino Marketing Relationship Specialty Start Date End Date Gustavo Salas DO [address] [place] [address] PCP - General Internal Medicine 12/09/23 Gustavo Salas DO [address] [place] [address] PCP - [facility] 03/28/24 10/27/24 Goals (unrecognized section and content) Goals may [...] BE BASED ON THE PRIMARY CLINICAL RECORDS. [facility]. provides no warranty or guarantee of the accuracy or completeness of information in this document.
[2024-10-01] MEDS: HYDROMORPHONE HCL 0.5 MG/0.5 ML SYRINGE IV (20:03)
[2024-10-01] MEDS: ONDANSETRON 4 MG RAPDIS TABLET SL (20:03)
[2024-10-01 20:07] LABS: Hematocrit 36.8 % (36.0-48.0); Hemoglobin 11.2 g/dL (12.0-16.0); Mean Corpuscular HGB Conc 30.4 g/dL (29.9-35.2); Mean Corpuscular Hemoglobin 24.9 pg (26.7-34.0); Mean Corpuscular Volume 81.8 fL (81.0-99.0); Mean Platelet Volume 8.8 fL (9.5-13.5); Platelet Count 287 10^3/uL (150-450); Red Cell Distribution Width 22.6 % (11.0-15.0); White Blood Count 19.8 10^3/uL (4.0-11.0)
[2024-10-01 20:23] LABS: Alanine Aminotransferase 13 U/L (14-59); Albumin Globulin Ratio 0.8; Albumin Level 2.9 g/dL (3.4-5.0); Alkaline Phosphatase 116 U/L (46-116); Aspartate Amino Transferase <5 U/L (15-37); BUN Creatinine Ratio 23.9; Bilirubin Total 0.3 mg/dL (0.2-1.0); Calcium 8.7 mg/dL (8.5-10.1); Chloride 108 mmol/L (98-107); Estimated GFR (African America 56 (>=60 mL/min/1.73m^2); Estimated GFR (Non-African Ame 47 (>=60 mL/min/1.73m^2); Globulin 3.6 g/dL; Glucose 131 mg/dL (74-106); Sodium 146 mmol/L (136-145); Total Protein 6.5 g/dL (6.4-8.2)
--- NOTE | 2024-10-01 20:23 | ED_ITS ---
HPI HPI - General Adult General Chief complaint: Back Pain/Injury Stated complaint: BACK PAIN Time Seen by Provider: 10/01/24 19:33 Source: patient Mode of arrival: ambulance Limitations: physical limitation History of Present Illness HPI narrative: Patient states she lost her balance and fell 2 days ago injuring the lower back. She reports severe pain in the left paralumbar region. Pain does not radiate into the legs or anteriorly into her abdomen. She denies nausea or vomiting, lightheadedness or dizziness. She has been ambulating but with pain. Patient also has a history of oxygen requiring COPD, renal insufficiency, arthritis Related Data Home Medications ?Medication ?Instructions ?Recorded ?Confirmed albuterol sulfate 90 mcg/actuation 2 puff inhalation Q4H PRN 08/28/23 09/19/24 aerosol inhaler shortness of breath or wheezing cholecalciferol (vitamin D3) 50 50 mcg PO DAILY 08/28/23 09/19/24 mcg (2,000 unit) tablet pregabalin 75 mg capsule 75 mg PO BID 08/28/23 09/19/24 melatonin 5 mg tablet 5 mg PO QPM 08/14/24 09/19/24 fluticasone fur. 100 mcg-umeclid 1 inh inhalation QAM 09/19/24 09/19/24 62.5 mcg-vilant 25 mcg inhalat.powder (Trelegy Ellipta) Previous Rx's ?Medication ?Instructions ?Recorded benzonatate 100 mg capsule 100 mg PO BID PRN cough #20 caps 09/23/24 cefdinir 300 mg capsule 300 mg PO BID 5 days #10 caps 09/23/24 prednisone 20 mg tablet 20 mg PO DAILY #20 tabs 09/23/24 hydrocodone 5 mg-acetaminophen 325 1 tab PO Q6H PRN pain 3 days #12 10/01/24 mg tablet tabs polyethylene glycol 3350 17 17 g PO DAILY PRN constipation 10/01/24 gram/dose oral powder (Miralax) #510 grams Allergies Allergy/AdvReac Type Severity Reaction Status Date / Time aspirin Allergy Severe Hives Verified 10/01/24 19:32 Opioid HPI Opioid Management Most Recent Opioid Data: Last Pain Scale 10 10/01/24 20:43 10/01/24 Last Pain Intensity 8 09/22/24 10:09 09/22/24 Last ORT Total Score 3 09/19/24 14:31 09/19/24 Last ORT Risk Category Low Risk 09/19/24 14:31 09/19/24 Review of Systems ROS Status of ROS 10 or more systems reviewed and unremark able except as noted in history and below [facility] Medical History Elevated d-dimer ?R79.89 - Other specified abnormal findings of blood chemistry (ICD-10) Pneumonia ?J18.9 - Pneumonia, unspecified organism (ICD-10) Chronic respiratory failure with hypoxia ?J96.11 - Chronic respiratory failure with hypoxia (ICD-10) Anemia ?D64.9 - Anemia, unspecified (ICD-10) HLD (hyperlipidemia) ?E78.5 - Hyperlipidemia, unspecified (ICD-10) ARMAND (obstructive sleep apnea) ?G47.33 - Obstructive sleep apnea (adult) (pediatric) (ICD-10) COPD (chronic obstructive pulmonary disease) ?J44.9 - Chronic obstructive pulmonary disease, unspecified (ICD-10) HTN (hypertension) ?I10 - Essential (primary) hypertension (ICD-10) Surgical History History of colon surgery ?Z98.890 - Other specified postprocedural states (ICD-10) Family History Grandmother Family history of CHF (congestive heart failure) Family history of cancer Family history of hypertension Family history of myocardial infarction Mother Family history of CHF (congestive heart failure) Family history of cancer Family history of hypertension Family history of myocardial infarction Uncle Family history of COPD (chronic obstructive pulmonary disease) Aunt Family history of cancer Social History Within the past year, how often did you have a drink containing alcohol: never Within the past year, how often did you have six or more drinks on one occasion: never Score interpretation: A score less than 3 is consistent with normal alcohol consumption. 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 Highest level of school completed/degree received: 11th grade Are you now , , , , never or living with a partner: In a typical week, how many times do you talk on the telephone with family, friends, or neighbors: 3 or more times per week How often do you get together with friends or relatives: 3 or more times per week How often do you attend methodist or yarsanism services: 1-3 times per year Do you belong to any clubs or organizations such as methodist groups unions, fraternal or athletic groups, or school groups: yes Total score: 2 Score interpretation: A score of greater than or equal to 2 indicates the lowest level of social isolation. Little interest or pleasure in doing things: several days Feeling down, depressed, or hopeless: several days Feel stressed/tense/nervous/anxious/difficulty sleeping: to some extent Exam Narrative Exam Narrative: Patient appears in some degree of discomfort due to her pain. Speech and mentation are clear and intact. There is no facial asymmetry and she is able to move all extremities actively. HEENT exam is normal to inspection. Neck is supple. Lung sounds are clear to auscultation bilaterally. Heart has regular rate and rhythm. Abdomen is protuberant, soft nontender. Patient localizes tenderness in the left paralumbar soft tissue but not in the midline. Bony survey of the extremities is negative. Constitutional Vital Signs, click to edit/add: Last Vital Signs Temp 97.7 F 10/01/24 19:28 Pulse 87 10/01/24 23:11 Resp 18 10/01/24 23:11 BP 103/66 10/01/24 23:11 Pulse Ox 94 L 10/01/24 23:11 O2 Del Method Nasal Cannula 10/01/24 23:11 O2 Flow Rate 3 10/01/24 23:11 Course Vital Signs Vital signs: Vital Signs Temperature 97.7 F 10/01/24 19:28 Pulse Rate 85 10/01/24 19:28 Respiratory Rate 18 10/01/24 19:28 Blood Pressure 211/107 H 10/01/24 19:28 Pulse Oximetry 95 10/01/24 19:28 Oxygen Delivery Method Nasal Cannula 10/01/24 19:28 Oxygen Delivery Flow Rate 3 10/01/24 19:28 Temperature 97.7 F 10/01/24 19:28 Pulse Rate 87 10/01/24 23:11 Respiratory Rate 18 10/01/24 23:11 Blood Pressure 103/66 10/01/24 23:11 Pulse Oximetry 94 L 10/01/24 23:11 Oxygen Delivery Method Nasal Cannula 10/01/24 23:11 Oxygen Delivery Flow Rate 3 10/01/24 23:11 Medical Decision Making MDM Narrative Medical decision making narrative: Patient presents with a 2-day old history of injury to the lower back when she fell. There has been no injury to the head or neck. Lumbar spine CT scan revealed degenerative changes but no acute fracture. CT scan of the abdomen pelvis was also nondiagnostic for any acute pathology. Patient had an elevated white count of 19.8 but her workup does not reveal any obvious infection and there is no suggestion of sepsis. Review of her lab work over the last several months shows that she tends to have a bump in her white cell count from time to time. Urinalysis did not show any signs of infection. Electrolytes and kidney function were pretty much at baseline. Patient was administered Dilaudid 0.5 mg IV for pain relief followed by 1 [place] tablet. Upon discharge she is placed on [place] tablets every 6 hours as needed with enough provided for 3 days. She is to follow-up with her PCP and may return anytime for worsening symptoms. Differential Diagnosis Differential Diagnosis: Lumbar spine fracture, kidney stone, acute urinary tract infection Medical Records Medical records reviewed: Yes I reviewed the patient's medical records Lab Data Lab results reviewed: Yes I reviewed the patient's lab results Labs: Lab Results 10/01/24 10/01/24 Range/Units 19:50 21:15 WBC 19.8 H (4.0-11.0) 10^3/uL RBC 4.50 (4.20-5.40) 10^6/uL Hgb 11.2 L (12.0-16.0) g/dL Hct 36.8 (36.0-48.0) % MCV 81.8 (81.0-99.0) fL MCH 24.9 L (26.7-34.0) pg MCHC 30.4 (29.9-35.2) g/dL RDW 22.6 H (11.0-15.0) % Plt Count 287 (150-450) 10^3/uL MPV 8.8 L (9.5-13.5) fL Seg Neuts % (Manual) 66.0 (43.0-75.0) Lymphocytes % (Manual) 26.0 (20.5-60.0) % Monocytes % (Manual) 8.0 (1.7-12.0) % Eosinophils % (Manual) 0.0 L (0.9-7.0) % Basophils % (Manual) 0.0 L (0.2-2.0) % Neutrophils # (Manual) 13.06 H (1.4-6.5) 10^3/uL Lymphocytes # (Manual) 5.14 H (1.20-3.80) 10^3/uL Abs Atypical Lymphs Man 0.00 Monocytes # (Manual) 1.58 H (0.30-0.80) 10^3/uL Eosinophils # (Manual) 0.00 (0.00-0.70) 10^3/uL Basophils # (Manual) 0.00 (0.00-0.10) 10^3/uL Anisocytosis 1+ Target Cells 1+ Sodium 146 H (136-145) mmol/L Potassium 4.0 (3.5-5.1) mmol/L Chloride 108 H (98-107) mmol/L Carbon Dioxide 32.0 (21.0-32.0) mmol/L Anion Gap 10.0 BUN 27.0 H (7.0-18.0) mg/dL Creatinine 1.13 H (0.55-1.02) mg/dL Est GFR ( Amer) 56 L (>=60 mL/min/1.73m^2) Est GFR (Non-Af Amer) 47 L (>=60 mL/min/1.73m^2) BUN/Creatinine Ratio 23.9 Glucose 131 H (74-106) mg/dL Calcium 8.7 (8.5-10.1) mg/dL Total Bilirubin 0.3 (0.2-1.0) mg/dL AST <5 L (15-37) U/L ALT 13 L (14-59) U/L Alkaline Phosphatase 116 (46-116) U/L Total Protein 6.5 (6.4-8.2) g/dL Albumin 2.9 L (3.4-5.0) g/dL Globulin 3.6 g/dL Albumin/Globulin Ratio 0.8 Urine Color Yellow (YELLOW) Urine Clarity Clear (CLEAR) Urine pH 5.5 (5.0-9.0) Ur Specific [place] >=1.030 A (1.005-1.025) Urine Protein Negative (NEG/TRACE) mg/dL Urine Glucose (UA) Negative (NEGATIVE) mg/dL Urine Ketones Trace A (NEGATIVE) mg/dL Urine Occult Blood Negative (NEGATIVE) Urine Nitrite Negative (NEGATIVE) Urine Bilirubin Negative (NEGATIVE) Urine Urobilinogen 0.2 (0.2-1.0) EU/dL Ur Leukocyte Esterase Trace A (NEGATIVE) Urine RBC 0-2 (0-2) #/HPF Urine WBC 2-5 A (NONE SEEN) #/HPF Ur Squamous Epith Cells Moderate A (NONE/RARE) #/LPF Urine Crystals None seen (None Seen) #/HPF Urine Bacteria Small A (NONE SEEN) #/HPF Urine Casts Seen A (NONE SEEN) #/LPF Hyaline Casts Rare Urine Mucus Trace A (NONE SEEN) Urine Yeast Seen A (NONE SEEN) Ur Culture Indicated? Yes Discharge Plan Discharge Chief Complaint: Back Pain/Injury Clinical Impression: Strain of lumbar region Patient Disposition: Home, Self-Care Time of Disposition Decision: 21:42 Condition: Fair Mode of Transportation: Private Vehicle Prescriptions / Home Meds: New hydrocodone-acetaminophen 5-325 mg tablet 1 tab PO Q6H PRN (Reason: pain) 3 Days Qty: 12 0RF polyethylene glycol 3350 [Miralax] 17 gram/dose powder 17 g PO DAILY PRN (Reason: constipation) Qty: 510 0RF No Action albuterol sulfate 90 mcg/actuation HFA aerosol inhaler 2 puff INHALATION Q4H PRN (Reason: shortness of breath or wheezing) pregabalin 75 mg capsule 75 mg PO BID cholecalciferol (vitamin D3) 50 mcg (2,000 unit) tablet 50 mcg PO DAILY melatonin 5 mg tablet 5 mg PO QPM Trelegy Ellipta 100-62.5-25 mcg blister with device 1 inh INHALATION QAM cefdinir 300 mg capsule 300 mg PO BID 5 Days Qty: 10 0RF prednisone 20 mg tablet 20 mg PO DAILY Qty: 20 0RF Rx Instructions: 3 TABX 3 DAYS, 2 TAB X 3 DAYS, 1 TAB X 3 DAYS, 1/2 TAB X 4 DAYS benzonatate 100 mg capsule 100 mg PO BID PRN (Reason: cough) Qty: 20 0RF Print Language: Tanzanian Instructions: Low Back Strain (ED), Back Pain (ED) Additional Instructions: Return for worsening symptoms. Referrals: AMOS SALAS [Primary Care Provider] - 1 week Discharge Date/Time: 10/01/24 23:15
[2024-10-01 20:37] LABS: Lymphocytes Absolute Manual 5.14 10^3/uL (1.20-3.80); Monocytes Absolute Manual 1.58 10^3/uL (0.30-0.80); Segmented Neut Absolute Manual 13.06 10^3/uL (1.4-6.5)
[2024-10-01 20:38] LABS: Anisocytosis 1+; Target Cells 1+
[2024-10-01 20:44] VITALS: O2SAT 98
[2024-10-01 21:18] LABS: Bilirubin Urine NEGATIVE (NEGATIVE); Blood Urine NEGATIVE (NEGATIVE); Clarity Urine CLEAR (CLEAR); Color Urine YELLOW (YELLOW); Glucose Urine UA NEGATIVE (NEGATIVE); Ketones Urine TRACE mg/dL (NEGATIVE); Leukocyte Esterase Urine TRACE (NEGATIVE); Nitrite Urine NEGATIVE (NEGATIVE); Protein Urine NEGATIVE (NEG/TRACE); Specific Gravity Urine >=1.030 (1.005-1.025); Urobilinogen Urine 0.2 EU/dL (0.2-1.0); pH Urine 5.5 (5.0-9.0)
[2024-10-01 21:20] LABS: Urine Microscopic Indicated YES
[2024-10-01 21:26] LABS: Bacteria Urine SMALL #/HPF (NONE SEEN); Crystals Seen? None Seen #/HPF (None Seen); Mucus Urine TRACE (NONE SEEN); RBC Urine 0-2 #/HPF (0-2); Squamous Epithelial Cell Urine MODERATE #/LPF (NONE/RARE)
[2024-10-01 21:27] LABS: Cast Seen? SEEN #/LPF (NONE SEEN); Hyaline Casts Urine RARE; Urine Culture Indicated YES
[2024-10-01] MEDS: HYDROCODONE/ACET 5-325 MG TABLET 1 TAB PO ×2 (22:17→23:10)
[2024-10-01 23:11] VITALS: BP 103/66; PULSE 87; O2SAT 94
== END 2024-10-01 23:15 | disposition home or self-care (01) ==
PROVIDERS: Emergency Provider Emergency Medicine; PCP Internal Medicine
DX: S39.012A Strain of muscle, fascia and tendon of lower back, initial encounter (principal); W19.XXXA Unspecified fall, initial encounter; J44.9 Chronic obstructive pulmonary disease, unspecified; M19.90 Unspecified osteoarthritis, unspecified site; N28.9 Disorder of kidney and ureter, unspecified; Z99.81 Dependence on supplemental oxygen; Z87.891 Personal history of nicotine dependence
CPT/HCPCS: 36415; 72131; 74176; 80053; 81001; 85007; 85027; 87086; 96374; 99285; J1171; Q0162

== ENCOUNTER 2024-10-03 15:27 | Emergency (ER) | payer MEDICARE, MEDICAID, SELFPAY ==
[2024-10-03 15:33] VITALS: PULSE 108; O2SAT 94; BMI 36.0
--- NOTE | 2024-10-03 16:05 | XR_ITS ---
The [address] [address] Patient Name: GERA PERDUE MRN: [id number] date: 1945 Sex: F Assigned Patient Location: ER Current Patient Location: ER Accession/Order Number: [id number] Exam Date: 10/03/2024 16:29 Report Date: 10/03/2024 18:02 At the request of: DAVID MOTTA Procedure: XR ribs LT min 3V w CXR1V Ribs EXAM: XR ribs LT min 3V w CXR1V HISTORY: fall COMPARISON: None. TECHNIQUE: Chest, single view. Left rib series with 8 images obtained. FINDINGS: Lungs/pleura: No consolidation, effusion, or pneumothorax. Bones: No acute abnormality identified. XR/XR ribs LT min 3V w CXR1V IMPRESSION: No acute displaced rib fracture. Electronically authenticated by: CARLEY BHAT Date: 10/03/2024 18:02
[2024-10-03] MEDS: MORPHINE SULFATE 4 MG/ML VIAL 10 MG IM (16:11)
--- NOTE | 2024-10-03 16:18 | ED_ITS ---
HPI HPI - Back Pain/Injury General Chief Complaint: Back Pain/Injury Stated Complaint: BACK PAIN Time Seen by Provider: 10/03/24 15:59 Source: patient Mode of arrival: walk-in Limitations: no limitations History of Present Illness HPI Narrative: 78-year-old female presents to the emergency department for pain in her left posterior rib region. She had fallen several days ago and was seen here. At that time she had CT of her lumbar spine that was negative. She is now pointing to the left posterior rib area and it is sharp and severe and is worse if she moves. No new injury. Related Data Home Medications ?Medication ?Instructions ?Recorded ?Confirmed albuterol sulfate 90 mcg/actuation 2 puff inhalation Q4H PRN 08/28/23 09/19/24 aerosol inhaler shortness of breath or wheezing cholecalciferol (vitamin D3) 50 50 mcg PO DAILY 08/28/23 09/19/24 mcg (2,000 unit) tablet pregabalin 75 mg capsule 75 mg PO BID 08/28/23 09/19/24 melatonin 5 mg tablet 5 mg PO QPM 08/14/24 09/19/24 fluticasone fur. 100 mcg-umeclid 1 inh inhalation QAM 09/19/24 09/19/24 62.5 mcg-vilant 25 mcg inhalat.powder (Trelegy Ellipta) Previous Rx's ?Medication ?Instructions ?Recorded benzonatate 100 mg capsule 100 mg PO BID PRN cough #20 caps 09/23/24 cefdinir 300 mg capsule 300 mg PO BID 5 days #10 caps 09/23/24 prednisone 20 mg tablet 20 mg PO DAILY #20 tabs 09/23/24 hydrocodone 5 mg-acetaminophen 325 1 tab PO Q6H PRN pain 3 days #12 10/01/24 mg tablet tabs polyethylene glycol 3350 17 17 g PO DAILY PRN constipation 10/01/24 gram/dose oral powder (Miralax) #510 grams oxycodone-acetaminophen 5 mg-325 1 tab PO Q6H PRN pain 3 days #10 10/03/24 mg tablet (Percocet) tabs Allergies Allergy/AdvReac Type Severity Reaction Status Date / Time aspirin Allergy Severe Hives Verified 10/03/24 15:37 Opioid HPI Opioid Management Most Recent Opioid Data: Last Pain Scale 10 10/03/24 16:11 10/03/24 Last Pain Intensity 8 09/22/24 10:09 09/22/24 Last MAR Pain Assessment 10/03/24 16:11 Last ORT Total Score 3 09/19/24 14:31 09/19/24 Last ORT Risk Category Low Risk 09/19/24 14:31 09/19/24 Review of Systems ROS Narrative A ten point review of systems is negative except as noted above. PFSH PFS Medical History Elevated d-dimer ?R79.89 - Other specified abnormal findings of blood chemistry (ICD-10) Pneumonia ?J18.9 - Pneumonia, unspecified organism (ICD-10) Chronic respiratory failure with hypoxia ?J96.11 - Chronic respiratory failure with hypoxia (ICD-10) Anemia ?D64.9 - Anemia, unspecified (ICD-10) HLD (hyperlipidemia) ?E78.5 - Hyperlipidemia, unspecified (ICD-10) ARMAND (obstructive sleep apnea) ?G47.33 - Obstructive sleep apnea (adult) (pediatric) (ICD-10) COPD (chronic obstructive pulmonary disease) ?J44.9 - Chronic obstructive pulmonary disease, unspecified (ICD-10) HTN (hypertension) ?I10 - Essential (primary) hypertension (ICD-10) Surgical History History of colon surgery ?Z98.890 - Other specified postprocedural states (ICD-10) Family History Grandmother Family history of CHF (congestive heart failure) Family history of cancer Family history of hypertension Family history of myocardial infarction Mother Family history of CHF (congestive heart failure) Family history of cancer Family history of hypertension Family history of myocardial infarction Uncle Family history of COPD (chronic obstructive pulmonary disease) Aunt Family history of cancer Social History Within the past year, how often did you have a drink containing alcohol: never Within the past year, how often did you have six or more drinks on one occasion: never Score interpretation: A score less than 3 is consistent with normal alcohol consumption. 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 Highest level of school completed/degree received: 11th grade Are you now , , , , never or living with a partner: In a typical week, how many times do you talk on the telephone with family, friends, or neighbors: 3 or more times per week How often do you get together with friends or relatives: 3 or more times per week How often do you attend religion or restorationist services: 1-3 times per year Do you belong to any clubs or organizations such as religion groups unions, fraternal or athletic groups, or school groups: yes Total score: 2 Score interpretation: A score of greater than or equal to 2 indicates the lowest level of social isolation. Little interest or pleasure in doing things: not at all Feeling down, depressed, or hopeless: not at all Feel stressed/tense/nervous/anxious/difficulty sleeping: to some extent Exam Narrative Exam Narrative: Nurses note and vital signs reviewed and patient is not hypoxic. General: The patient appears in no respiratory distress. She is sitting in a wheelchair. She appears uncomfortable. Skin: Warm, dry, no pallor noted. There is no rash noted. Head: Normocephalic, atraumatic Ears, Nose, Mouth, and Throat: oral mucosa is moist. Nares patent. Cardiovascular: Regular Rate and Rhythm Respiratory: Breath sounds are equal. She has palpable tenderness to the left posterior rib region. No crepitus. Back: Thoracic and lumbar spines nontender GI: Nontender Musculoskeletal: No joint swelling Neurological: Awake and alert Psychiatric: Cooperative Constitutional Vital Signs, click to edit/add: Last Vital Signs Pulse 108 H 10/03/24 15:33 Resp 24 H 10/03/24 15:33 Pulse Ox 94 L 10/03/24 15:33 O2 Del Method Nasal Cannula 10/03/24 15:33 O2 Flow Rate 2 10/03/24 15:33 Course Vital Signs Vital signs: Vital Signs Pulse Rate 108 H 10/03/24 15:33 Respiratory Rate 24 H 10/03/24 15:33 Pulse Oximetry 94 L 10/03/24 15:33 Oxygen Delivery Method Nasal Cannula 10/03/24 15:33 Oxygen Delivery Flow Rate 2 10/03/24 15:33 Pulse Rate 108 H 10/03/24 15:33 Respiratory Rate 24 H 10/03/24 15:33 Pulse Oximetry 94 L 10/03/24 15:33 Oxygen Delivery Method Nasal Cannula 10/03/24 15:33 Oxygen Delivery Flow Rate 2 10/03/24 15:33 MDM - Back Pain/Injury MDM Narrative Medical decision making narrative: Rib films are negative and CAT scans from a few days ago were reviewed. She was given IM morphine here and prescribed 10 Percocet. Treatment diagnosis and follow-up were discussed with the patient. Differential Diagnosis Differential diagnosis: Likely other (Back contusion, rib fracture, pneumothorax) Imaging Data Rib x-rays: Radiologist's impression: ITS Impressions Ribs X-Ray 10/03/24 16:05 IMPRESSION: No acute displaced rib fracture. Electronically authenticated by: CARLEY BHAT Date: 10/03/2024 18:02 Discharge Plan Discharge Chief Complaint: Back Pain/Injury Clinical Impression: Back pain Patient Disposition: Home, Self-Care Time of Disposition Decision: 18:27 Mode of Transportation: Private Vehicle Prescriptions / Home Meds: New oxycodone-acetaminophen [Percocet] 5-325 mg tablet 1 tab PO Q6H PRN (Reason: pain) 3 Days Qty: 10 0RF No Action albuterol sulfate 90 mcg/actuation HFA aerosol inhaler 2 puff INHALATION Q4H PRN (Reason: shortness of breath or wheezing) pregabalin 75 mg capsule 75 mg PO BID cholecalciferol (vitamin D3) 50 mcg (2,000 unit) tablet 50 mcg PO DAILY melatonin 5 mg tablet 5 mg PO QPM hydrocodone-acetaminophen 5-325 mg tablet 1 tab PO Q6H PRN (Reason: pain) 3 Days Qty: 12 0RF polyethylene glycol 3350 [Miralax] 17 gram/dose powder 17 g PO DAILY PRN (Reason: constipation) Qty: 510 0RF Trelegy Ellipta 100-62.5-25 mcg blister with device 1 inh INHALATION QAM cefdinir 300 mg capsule 300 mg PO BID 5 Days Qty: 10 0RF prednisone 20 mg tablet 20 mg PO DAILY Qty: 20 0RF Rx Instructions: 3 TABX 3 DAYS, 2 TAB X 3 DAYS, 1 TAB X 3 DAYS, 1/2 TAB X 4 DAYS benzonatate 100 mg capsule 100 mg PO BID PRN (Reason: cough) Qty: 20 0RF Print Language: Yakut Additional Instructions: See your family doctor this week. Do not take [place] while on Percocet. Referrals: AMOS SALAS [Primary Care Provider] - 1 week
[2024-10-03] MEDS: OXYCODONE HCL/ACETAMINOPHEN 5MG/325MG 1 TAB PO (18:44)
== END 2024-10-03 18:56 | disposition home or self-care (01) ==
PROVIDERS: Emergency Provider Emergency Medicine; PCP Internal Medicine
DX: M54.89 Other dorsalgia (principal); Z87.891 Personal history of nicotine dependence
CPT/HCPCS: 71101; 96372; 99284; J2270

== ENCOUNTER 2024-10-06 16:04 | Inpatient (IN) | payer MEDICARE, MEDICAID, SELFPAY ==
[2024-10-06] VITALS (9 sets, daily range): BP systolic 144–188; BP diastolic 78–90; PULSE 90–97; TEMP 36.6–36.8; O2SAT 97–98; BMI 38.5; BMI 40.3
--- NOTE | 2024-10-06 16:16 | ED_ITS ---
HPI HPI - General Adult General Chief complaint: Fall Stated complaint: fall Time Seen by Provider: 10/06/24 16:07 Source: patient Mode of arrival: ambulance Limitations: no limitations History of Present Illness HPI narrative: Patient presented to the emergency department for evaluation of rib pain. Patient states approximately 1 week ago she fell, landed on her left side. Came to the emergency department because she was having pain of the ribs. Had to come again a second time. States that she does not know what is wrong with her ribs, but they keep hurting, and she just needs something for pain. Ran out of pain medicine. No other complaints at this time. Has no chest pain, shortness of breath, difficulty breathing. Pain is worse when she bends, twists, moves. Related Data Home Medications ?Medication ?Instructions ?Recorded ?Confirmed albuterol sulfate 90 mcg/actuation 2 puff inhalation Q4H PRN 08/28/23 09/19/24 aerosol inhaler shortness of breath or wheezing cholecalciferol (vitamin D3) 50 50 mcg PO DAILY 08/28/23 09/19/24 mcg (2,000 unit) tablet pregabalin 75 mg capsule 75 mg PO BID 08/28/23 09/19/24 melatonin 5 mg tablet 5 mg PO QPM 08/14/24 09/19/24 fluticasone fur. 100 mcg-umeclid 1 inh inhalation QAM 09/19/24 09/19/24 62.5 mcg-vilant 25 mcg inhalat.powder (Trelegy Ellipta) Previous Rx's ?Medication ?Instructions ?Recorded benzonatate 100 mg capsule 100 mg PO BID PRN cough #20 caps 09/23/24 cefdinir 300 mg capsule 300 mg PO BID 5 days #10 caps 09/23/24 prednisone 20 mg tablet 20 mg PO DAILY #20 tabs 09/23/24 hydrocodone 5 mg-acetaminophen 325 1 tab PO Q6H PRN pain 3 days #12 10/01/24 mg tablet tabs polyethylene glycol 3350 17 17 g PO DAILY PRN constipation 10/01/24 gram/dose oral powder (Miralax) #510 grams oxycodone-acetaminophen 5 mg-325 1 tab PO Q6H PRN pain 3 days #10 10/03/24 mg tablet (Percocet) tabs Allergies Allergy/AdvReac Type Severity Reaction Status Date / Time aspirin Allergy Severe Hives Verified 10/03/24 15:37 Opioid HPI Opioid Management Most Recent Opioid Data: Last Pain Scale 8 10/06/24 17:09 10/06/24 Last Pain Intensity 8 09/22/24 10:09 09/22/24 Last MAR Pain Assessment 10/06/24 16:27 Last ORT Total Score 3 09/19/24 14:31 09/19/24 Last ORT Risk Category Low Risk 09/19/24 14:31 09/19/24 Review of Systems ROS Narrative Negative unless otherwise stated in the HPI [facility] Medical History Elevated d-dimer ?R79.89 - Other specified abnormal findings of blood chemistry (ICD-10) Pneumonia ?J18.9 - Pneumonia, unspecified organism (ICD-10) Chronic respiratory failure with hypoxia ?J96.11 - Chronic respiratory failure with hypoxia (ICD-10) Anemia ?D64.9 - Anemia, unspecified (ICD-10) HLD (hyperlipidemia) ?E78.5 - Hyperlipidemia, unspecified (ICD-10) ARMAND (obstructive sleep apnea) ?G47.33 - Obstructive sleep apnea (adult) (pediatric) (ICD-10) COPD (chronic obstructive pulmonary disease) ?J44.9 - Chronic obstructive pulmonary disease, unspecified (ICD-10) HTN (hypertension) ?I10 - Essential (primary) hypertension (ICD-10) Surgical History History of colon surgery ?Z98.890 - Other specified postprocedural states (ICD-10) Family History Grandmother Family history of CHF (congestive heart failure) Family history of cancer Family history of hypertension Family history of myocardial infarction Mother Family history of CHF (congestive heart failure) Family history of cancer Family history of hypertension Family history of myocardial infarction Uncle Family history of COPD (chronic obstructive pulmonary disease) Aunt Family history of cancer Social History Within the past year, how often did you have a drink containing alcohol: never Within the past year, how often did you have six or more drinks on one occasion: never Score interpretation: A score less than 3 is consistent with normal alcohol consumption. 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 Highest level of school completed/degree received: 11th grade Are you now , , , , never or living with a partner: In a typical week, how many times do you talk on the telephone with family, friends, or neighbors: 3 or more times per week How often do you get together with friends or relatives: 3 or more times per week How often do you attend mandaeism or buddhism services: 1-3 times per year Do you belong to any clubs or organizations such as mandaeism groups unions, [employer] or athletic groups, or school groups: yes Total score: 2 Score interpretation: A score of greater than or equal to 2 indicates the lowest level of social isolation. Little interest or pleasure in doing things: not at all Feeling down, depressed, or hopeless: not at all Feel stressed/tense/nervous/anxious/difficulty sleeping: to some extent Exam Narrative Exam Narrative: general: NAD, AAOx3, no distress Respiratory: respiratory effort normal, speaks in full sentences, no tripod position, no accessory muscle use. Lungs clear to auscultation without rhonchi, wheezes, rales, midaxillary line ribs 8 through 10 tenderness to palpation, mid axillary line tenderness to palpation ribs 6 through 10, no gross deformities Cardiac: Regular rate and rhythm, no edema, regular s1/s2, no m/g/r Abdomen: Soft, ND/NT. No evidence of fluid wave. No pulsatile masses on exam, rebound tenderness, Bird sign or pain over Mcburney's point. Neuro: Speech is clear and appropriate. Normal level of consciousness. Gait and coordination are normal. 5/5 strength in all extremities. Constitutional Vital Signs, click to edit/add: Last Vital Signs Temp 98.2 F 10/06/24 16: Pulse 96 H 10/06/24 16:07 Resp 18 10/06/24 16:07 BP 188/90 H 10/06/24 16:07 Pulse Ox 98 10/06/24 17:10 O2 Del Method Nasal Cannula 10/06/24 17:10 O2 Flow Rate 3 10/06/24 17:10 Course Vital Signs Vital signs: Vital Signs Temperature 98.2 F 10/06/24 16:07 Pulse Rate 96 H 10/06/24 16:07 Respiratory Rate 18 10/06/24 16:07 Blood Pressure 188/90 H 10/06/24 16:07 Pulse Oximetry 98 10/06/24 16:07 Oxygen Delivery Method Nasal Cannula 10/06/24 16:07 Oxygen Delivery Flow Rate 3 10/06/24 16:07 Temperature 98.2 F 10/06/24 16:07 Pulse Rate 96 H 10/06/24 16:07 Respiratory Rate 18 10/06/24 16:07 Blood Pressure 188/90 H 10/06/24 16:07 Pulse Oximetry 98 10/06/24 17:10 Oxygen Delivery Method Nasal Cannula 10/06/24 17:10 Oxygen Delivery Flow Rate 3 10/06/24 17:10 Medical Decision Making MDM Narrative Medical decision making narrative: Patient presented to the emergency department for evaluation of above-stated complaint. Patient complains of rib pain, tender to palpation, worse when she bends, twists or moves. Is not hypoxic, is not tachypneic, is not tachycardic. Has no leg pain or swelling. Had recent x-rays. Patient was given multiple dose of pain medication while in the emergency department, including Lidoderm patch as well. Patient also asked for breathing treatment during her hospital course, this was given. 1900 patient was signed out at normal change of shift pending CT imaging for final and ultimate disposition. Discharge Plan Discharge Chief Complaint: Fall Clinical Impression: Pain in rib Patient Disposition: Still a Patient Time of Disposition Decision: 19:00 Prescriptions / Home Meds: No Action albuterol sulfate 90 mcg/actuation HFA aerosol inhaler 2 puff INHALATION Q4H PRN (Reason: shortness of breath or wheezing) pregabalin 75 mg capsule 75 mg PO BID cholecalciferol (vitamin D3) 50 mcg (2,000 unit) tablet 50 mcg PO DAILY melatonin 5 mg tablet 5 mg PO QPM hydrocodone-acetaminophen 5-325 mg tablet 1 tab PO Q6H PRN (Reason: pain) 3 Days Qty: 12 0RF polyethylene glycol 3350 [Miralax] 17 gram/dose powder 17 g PO DAILY PRN (Reason: constipation) Qty: 510 0RF Trelegy Ellipta 100-62.5-25 mcg blister with device 1 inh INHALATION QAM cefdinir 300 mg capsule 300 mg PO BID 5 Days Qty: 10 0RF prednisone 20 mg tablet 20 mg PO DAILY Qty: 20 0RF Rx Instructions: 3 TABX 3 DAYS, 2 TAB X 3 DAYS, 1 TAB X 3 DAYS, 1/2 TAB X 4 DAYS benzonatate 100 mg capsule 100 mg PO BID PRN (Reason: cough) Qty: 20 0RF oxycodone-acetaminophen [Percocet] 5-325 mg tablet 1 tab PO Q6H PRN (Reason: pain) 3 Days Qty: 10 0RF Print Language: Bur[place]ian Referrals: AMOS SALAS [Primary Care Provider] - 1 week
[2024-10-06] MEDS: MORPHINE SULFATE 4 MG/ML VIAL IM (16:27)
--- NOTE | 2024-10-06 17:05 | CT_ITS ---
[place] [id number] Patient Name: GERA PERDUE MRN: [id number] date: 1945 Sex: F Assigned Patient Location: ER Current Patient [facility]: [facility] Accession/Order Number: [id number] Exam Date: 10/06/2024 17:10 Report Date: 10/06/2024 19:29 At the request of: JAVIER MICHEL Procedure: CT chest wo con EXAMINATION: CT chest wo con, 10/06/2024 5:10 PM EST HISTORY: rib pain COMPARISON: Previous x-ray from 10/03/[address] scan chest from 09/19/2024 and 2022. TECHNIQUE: CT scan of the chest was performed without IV contrast. Coronal and sagittal reconstructions were performed. CT dose reduction technique was used, including Automated Exposure Control. FINDINGS: The bone windows demonstrate partial compression of T6 vertebral body approximately 50%, significantly increased compared to the previous imaging, consistent with acute compression fracture. Mild degenerative changes are seen throughout the thoracic spine. Some of the images are partially limited by motion artifacts. No obvious fracture or dislocation is seen. The lung windows demonstrate no focal consolidation. Mild atelectasis is seen in the right middle lobe, lingula and the lung bases. Motion artifacts. The mediastinal windows demonstrate moderate atherosclerotic calcification of the aortic arch. Severe multivessel coronary artery calcifications. Unremarkable thyroid gland. Esophagus is nondilated. No pleural or pericardial effusion. No enlarged lymph node in the mediastinum or hilar region. Limited scans through the upper abdomen show no gross acute abnormality. CT/CT chest wo con IMPRESSION: 1. Partial compression fracture of T6 vertebra. 2. Mild degenerative changes thoracic spine. 3. Atherosclerotic calcification of the thoracic aorta and coronary arteries. Electronically authenticated by: MARY PETERS Date: 10/06/2024 19:29
[2024-10-06] MEDS: IPRATROPIUM/ALBUTEROL SULFATE 3 ML AMPUL.NEB IH (18:36)
[2024-10-06] MEDS: MORPHINE SULFATE 4 MG/ML VIAL IV ×2 (18:52→20:46)
[2024-10-06] MEDS: LIDOCAINE 5% PATCH 1 PATCH TOPICAL (18:52)
[2024-10-06] MEDS: ONDANSETRON PF 4 MG/2 ML VIAL IV (20:28)
--- OUTSIDE RECORDS SUMMARY | 2024-10-06 21:17 | XMS_ITS | CCD ---
Author Organization [facility] Care Team Providers Care Manager Of Training Name Role Phone Mely Camarillo Unavailable Unavailable CRYS BARBOZA Consulting Unavailable VERENICE CHILEL Admitting Unavailable ELLEN GONZALEZ Attending Unavailable GENERIC, PHYSICIAN Primary Care Unavailable JIMMY GUZMAN Referring Unavailable DANGELO LZOA Consulting U navailable Generic, Physician Primary Care Provider Unavail able Jorge A Jackson Unavailable Tanya Guerrero Unavailable DO Gustavo Salas Primary Care Provider DO Hilario Yeung Emergency Provider Unavai DO Gustavo Hernandez Primary Care Provider [phone] DO Richard Pearson Emergency Provider [phone] ETHAN Morrissey Emergency Provider MD Jolanta Mckenzie Admit Provider MD Jolanta Mckenzie Attending Provider MD Jesus Alberto Aquino Attending Provider [phone] Dr. Charlie Mondragon II Attending Unavailable LAKSHMIPATHY ., NARENDRANATH Admitting Sahra vailable LAKSHMIPATHY ., NARENDRANATH Attending Sahra vailable DR SVITLANA HAMMOND Primary Care Unavailable DO Gustavo Salas Primary Care Provider Karen INSIGHTS STRATEGIST- Kadie Beckford Emergency Provider DO Marshall Dominguez Emergency Provider MD Jolanta Mckenzie Admit Provider MD Jolanta Mckenzie Attending Provider DO Maury Morrissey Emergency Provider MD Jesus Alberto Aquino Admit Provider [phone] MD Jesus Alberto Aquino Attending Provider [employer] SENIOR PATIENT ACCOUNT REPRESENTATIVE-DIETICIAN, Mely A Primary Care Provid er Gustavo Salas DO Primary Care Provider [phone] Aubrey METZ, Leah Unavailable Gustavo Salas DO Primary Care Provider [phone] GUSTAVO SALAS Primary Care Physician Unavail able JENNA ENGLE Referring Unavailable GUSTAVO SALAS Primary Care Unavailable DO Gustavo Salas Primary Care Provider [phone] MD Jenna Engle Attending Provider Karen [facility] Kadie Beckford Emergency Provider [phone] MD Lucho Grullon Admit Provider [phone] MD Lucho Grullon Attending Provider [phone] JENNA ENGLE Attending Unavailable GUSTAVO SALAS A Primary Care Unavailable JENNA ENGLE Attending Unavailable JENNA ENGLE Referring Unavailable GUSTAVO SALAS A Primary Care Unavailable MD Michoacano Mckenzie Attending Provider Renae Ponce Attending Unavailable GUSTAVO SALAS Referring [...] MORENO Consulting Unavailable ([facility] ONLY), NEURO-CONSULTING Consulting Sahar TACHO Aquino Consulting Unavailable JEANNETTE SMART Consulting [...] Unavailable RUDI ZELAYA Attending Unavailable [facility] ONLY, [facility] ADULT PUL MONARY CONSULT SERVICE Consulting Unavailable [...] MARITZA, GUSTAVO A Primary Care Unavailable MARITZA, UGSTAVO A Referring Unavailable MARITZA, GUSTAVO A Primary [...] Translations: [acetaminophen-ox ycodone] Drug Allergy 3 vomiting [facility] Other (20 sources) Aspirin; Translations: [aspirin] Drug Allergy 05-06-201 9 Other, Nausea/vomiting [facility] (5 sources) Acetaminophen / oxyCODONE; Translations: [OXYCODONE-ACETAM INOPHEN] Drug Allergy 3 GI intolerance [facility] (5 sources) Ibuprofen; Translations: [IBUPROFEN] Drug Allergy 4 Nausea/vomiting [facility] (4 sources) Acetaminophen; Translations: [acetaminophen] Drug Allergy 4 GI intolerance [facility] (6 sources) oxyCODONE; Translations: [OXYCODONE] Drug Allergy 1 GI intolerance [facility] (1 source) Acetaminophen / oxyCODONE; Translations: [acetaminophen-ox ycodone] Drug Allergy [facility] Medications Current Medications Medication Drug Class(es) [...] needed Orally every 8 hrs PRN Active [id number] actuat albuterol 0.09 mg/actuat metered dose inhaler (20 sources) beta2-Adrenergic Agonist Start: 05-22-2024 take 2 puff(s) by inhalation every four hours for wheezing albuterol HFA (Ventolin HFA) 90 mcg/act inhaler Indications: Chronic obstructive pulmonary disease, unspecified COPD type ([facility]/HCC) Inhale 2 puffs every 4 (four) [...] day(s), # 14 cap(s), Refills(s) 0, Pharmacy: [id number], 170, cm, 01/30/24 13:39:00 EDT, [...] 21, 2020 1:41pm [facility] cholecalciferol, vitamin D3, 75 mcg (3,000 unit) tablet Take by mouth. 1 TAB BID Active take 1 capsule by mo [facility] in the morning cholecalciferol, vitamin D3, 2,000 units capsule Take 1 capsule (2,000 Units total) by mouth in the morning. 0 Active clopidogrel 75 mg oral tablet (20 sources) P2Y12 Platelet Inhibitor Start: 09-03-2024 take 1 tablet by mouth once daily clopidogrel (Plavix) 75 MG tablet Indications: Atherosclerosis of [place] coronary artery of [place] heart without angina pectoris (CMS/HCC) Take 1 [...] 1 puff(s) by inhalation in the morning Mylxyzegdoy-Rcjtokugo-Fxrvpe (Trelegy Ellipta) 100-62.5-25 MCG/ACT aerosol powder Indications: Panlobular emphysema (CMS/HCC) Inhale 1 puff in the morning. 1 each 11 04/01/2023 12/09/2023 Discontinued (Other) Start: 04-01-2023 take 1 puff(s) by inhalation once daily mdlfozetuyr-ibemnmlft-xbuqovhe (TRELEGY ELLIPTA) 100-62.5-25 mcg blister with device Inhale 1 puff once daily. 0 04/01/2023 Active Start: 02-23-2020 End: 04-25-2020 Yvdlqjxmenb-Ambynsujs-Jinshm er (Trelegy Ellipta) 100-62.5-25 mcg blister with device Discontinued 1 PUFF INHALATION As Directed February 22, 2020 11:00pm April 25, 2020 5:58pm Start: 02-23-2020 End: 04-25-2020 Bhqkvvcsxvz-Tuisrtmdz-Dwjpop er (Trelegy Ellipta) 100-62.5-25 mcg blister with device Discontinued 1 PUFF INHALATION As Directed February 23, 2020 12:00am April 25, 2020 6:58pm take 1 puff(s) by inhalation once daily Trelegy Ellipta 100-62.5-25 MCG/INH 1 pu ff Inhalation Once a day for 30 days Active Ulysexwoepg-Penncxstu-Qkmsfs (Trelegy Ellipta) 200-62.5-25 MCG/ACT aerosol powder (1 source) take 1 puff(s) by inhalation once daily Pbzssfdtany-Lknnckrwm-Gefrau (Trelegy Ellipta) 200-62.5-25 MCG/ACT aerosol powder Inhale [...] MG 24 hr tablet Indications: Atherosclerosis of [place] coronary artery without angina pectoris, unspecified whether [place] or transplanted heart (CMS/HCC) TAKE 1 TABLET [...] sources) Polyene Antifungal Start: 05-06-2024 nystatin (Mycostatin) 651341 UNIT/GM powder Indications: Rash Apply topically 2 [...] 06/17/2023 Active Start: 06-17-2023 nystatin (Myco statin) 570765 UNIT/GM powder Indications: Rash APPLY TOPICALLY TO [...] by mouth nightly. 0 10/23/2023 Active sennosides, longterm 8.6 mg oral tablet (2 sources) Start: [...] every four to six hours Hydrocodone-Acetami nophen ([place]) 5-325 mg tablet Discontinued 1 TAB PO EVERY 4-6 HOURS 10 January 15, 2020 February 23, 2020 2:44pm Start: 08-02-2019 HYDROcodone-ac etaminophen (NORCO) 5-325 MG per tablet 1 tablet Start: 01-02-2019 End: 01-12-2019 take 1 tablet by mouth every six hours Hydrocodone-Acetaminophen ([place]) 5-325 mg tablet Discontinued 1 TAB PO Q6H 16 03January 02, 2019 January 12, 2019 6:44am Start: 06-22-2018 End: 08-01-2019 take 1 tablet by mouth every four to six hours Hydrocodone-Acetaminophen ([place]) 5-325 mg tablet Discontinued 1 TAB PO [...] D2 Compound Start: 04-28-2020 End: 12-26-2022 take 30429 [IU] by mouth every month Ergocalciferol (Vitamin D2) Discontinued 96103 UNIT PO every month April 28, 2020 [...] application Externally Twice a day prn Active Lvnfjarcgqsd-Jksfrcfm-Pmbcfj (Multivitamin 50 Plus) Tablet (10 sources) Start: 02-23-2020 End: 04-25-2020 Lwxckjoyilez-Oljrqkfj-Hrydes (Multivitamin 50 Plus) Tablet Discontinued 1 TAB PO Daily February 22, 2020 11:00pm April 25, 2020 5:58pm Start: 02-23-2020 End: 04-25-2020 Zyraikjdwfiv-Ywhhbrrt-Omegyj (Multivitamin 50 Plus) Tablet Discontinued 1 TAB [...] DOSES CALL 911 Sublingual as needed Active [place]-3 Fatty Acids-Fish Oil (Fish Oil) 300-1,000 mg capsule (10 sources) Start: 08-01-2019 End: 02-23-2020 take 1 capsule by mouth once daily [place]-3 Fatty Acids-Fish Oil (Fish Oil) 300-1,000 mg capsule Discontinued 1000 MG PO Daily July 31, 2019 11:00pm February 23, 2020 3:42pm Start: 08-01-2019 End: 02-23-2020 take 1 capsule by mouth once daily [place]-3 Fatty Acids-Fish Oil (Fish Oil) 300-1,000 mg [...] aftercare (1 source) 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; Translations: [FCI (current) use of anticoagulants] Onset: 9 Resolved: [...] detection for pulmonary nodules was performed utilizing [employer] software. FINDINGS: No pleural or pericardial effusion. [...] Blake MD on 05/01/2024 9:36 AM Normal [facility] BLOOD UREA NITROGENon 2023 Urea nitrogen [Mass/Vol] 20 mg/dL Normal 5-27 [facility] Comment on above: Performed By: #### C SANTOSH DENG #### [facility] ([id number]) [address] [place] [address] CBC AND AUTO DIFFon 04-13-20 ABSOLUTE BASOPHIL 0.0 X10E9/L Normal 0.0-0.2 [facility] Comment on above: Performed By: #### C SANTOSH DENG #### [facility] ([id number]) [address] [place] [address] ABSOLUTE NEUTROPHIL 7.1 X10E9/L High 1.5-6.6 [facility] Comment on above: Performed By: #### C SOWMYA, BMP #### [facility] ([id number]) [address] [place] [address] 09041 Basophils/100 WBC (Bld) 0.4 % Normal [facility] Comment on above: Performed By: #### C SOWMYA, BMP #### [facility] ([id number]) [address] [place] [address] 14190 Eosinophils (Bld) [#/Vol] 0.3 10*3/uL Normal 0.0-0.4 [facility] Comment on above: Performed By: #### C SOWMYA, BMP #### [facility] ([id number]) [address] [place] [address] 92597 Eosinophils/100 WBC (Bld) 2.8 % Normal [facility] Comment on above: Performed By: #### C SOWMYA, BMP #### [facility] ([id number]) [address] [place] [address] 22057 Erythrocyte distribution width (RBC) [Ratio] 19.0 % High 11.5-15.0 [facility] Comment on above: Performed By: #### C SOWMAY, BMP #### [facility] ([id number]) [address] [place] [address] 04075 Hematocrit (Bld) [Volume fraction] 27.8 % Low 35-47 [facility] Comment on above: Performed By: #### C SOWMYA, BMP #### [facility] ([id number]) [address] [place] [address] 84344 Hemoglobin (Bld) [Mass/Vol] 9.0 g/dL Low 11.7-15.5 [facility] Comment on above: Performed By: #### C SOWMYA, BMP #### [facility] ([id number]) [address] [place] [address] Lymphocytes (Bld) [#/Vol] 3.2 10*3/uL Normal 1.0-3.5 [facility] Comment on above: Performed By: #### C SOWMYA, BMP #### [facility] ([id number]) [address] [place] [address] 94255 Lymphocytes/100 WBC (Bld) 27.2 % Normal [facility] Comment on above: Performed By: #### C SOWMYA, BMP #### [facility] ([id number]) [address] [place] [address] 88844 MCH (RBC) [Entitic mass] 24.5 pg Low 27-34 [facility] Comment on above: Performed By: #### C SOWMYA, BMP #### [facility] ([id number]) [address] [place] [address] 38096 MCHC (RBC) [Mass/Vol] 32.3 g/dL Normal 32-36 [facility] Comment on above: Performed By: #### C SOWMYA, BMP #### [facility] ([id number]) [address] [place] [address] 25501 MCV (RBC) [Entitic vol] 76 fL Low 80-100 [facility] Comment on above: Performed By: #### C SOWMYA, BMP #### [facility] ([id number]) [address] [place] [address] 71047 Monocytes (Bld) [#/Vol] 1.0 10*3/uL High 0-0.9 [facility] Comment on above: Performed By: #### C SOWMYA, BMP #### [facility] ([id number]) [address] [place] [address] 84919 Monocytes/100 WBC (Bld) 8.4 % Normal [facility] Comment on above: Performed By: #### C SOWMYA, BMP #### [facility] ([id number]) [address] [place] [address] 90150 Neutrophils/100 WBC (Bld) 61.2 % Normal [facility] Comment on above: Performed By: #### C SOWMYA, BMP #### [facility] ([id number]) [address] [place] [address] 08363 Platelet mean volume (Bld) [Entitic vol] 6.8 fL Low 7-12 [facility] Comment on above: Performed By: #### C SOWMYA, BMP #### [facility] ([id number]) [address] [place] [address] 03275 Platelets (Bld) [#/Vol] 353 10*3/uL Normal 150-450 [facility] Comment on above: Performed By: #### C SOWMYA, BMP #### [facility] ([id number]) [address] [place] [address] 23912 RBC COUNT 3.67 X10E12/L Low 3.80-5.20 [facility] Comment on above: Performed By: #### C SOWMYA, BMP #### [facility] ([id number]) [address] [place] [address] 24664 WBC (Bld) [#/Vol] 11.7 10*3/uL High 4.0-11.0 [facility] Comment on above: Performed By: #### C SOWMYA, BMP #### [facility] ([id number]) [address] [place] [address] 31751 CREATININEon 04-13-2024 Creatinine [Mass/Vol] 1.16 mg/dL High 0.40-1.00 [facility] Comment on above: Result Comment: METH OD TRACEABLE TO IDMS STANDARD Performed By: #### C SOWMYA, BMP #### [facility] ([id number]) [address] [place] [address] 24223 GFR/1.73 sq M.predicted among non-blacks MDRD (S/P/Bld) [Vol rate/Area] 48 mL/min/{1.73_m2} Low >59 [facility] Comment on above: Result Comment: Reported eGFR is based on the CKD-EPI 2020 equation that does not use a race coefficient. Performed By: #### C SOWMYA, BMP #### [facility] ([id number]) [address] [place] [address] 79474 ELECTROLYTESon 04-13-2024 Anion gap [Moles/Vol] 4 mmol/L Low 5-15 [facility] Comment on above: Performed By: #### C SOWMYA, BMP #### [facility] ([id number]) [address] [place] [address] 76872 Chloride [Moles/Vol] 106 mmol/L Normal 98-109 [facility] Comment on above: Performed By: #### C SOWMYA, BMP #### [facility] ([id number]) [address] [place] [address] 61127 CO2 [Moles/Vol] 25 mmol/L Normal 22-32 [facility] Comment on above: Performed By: #### C BCA, BMP #### [facility] ([id number]) [address] [place] [address] 39311 Potassium [Moles/Vol] 4.0 mmol/L Normal 3.5-5.0 [facility] Comment on above: Performed By: #### C BCA, BMP #### [facility] ([id number]) [address] [place] [address] 69495 Sodium [Moles/Vol] 135 mmol/L Normal 134-146 [facility] Comment on above: Performed By: #### C BCA, BMP #### [facility] ([id number]) [address] [place] [address] 30813 BLOOD UREA NITROGENon 2023 Urea nitrogen [Mass/Vol] 19 mg/dL Normal 5-27 [facility] Comment on above: Performed By: #### C SOWMYA, BMP #### [facility] ([id number]) [address] [place] [address] 57040 CBC AND AUTO DIFFon 04-08-20 24 ABSOLUTE BASOPHIL 0.1 X10E9/L Normal 0.0-0.2 [facility] Comment on above: Performed By: #### C SOWMYA, BMP #### [facility] ([id number]) [address] [place] [address] 79091 ABSOLUTE NEUTROPHIL 4.2 X10E9/L Normal 1.5-6.6 [facility] Comment on above: Performed By: #### C SOWMYA, BMP #### [facility] ([id number]) [address] [place] [address] 24134 Basophils/100 WBC (Bld) 1.1 % Normal [facility] Comment on above: Performed By: #### C SOWMYA, BMP #### [facility] ([id number]) [address] [place] [address] 31228 Eosinophils (Bld) [#/Vol] 0.4 10*3/uL Normal 0.0-0.4 [facility] Comment on above: Performed By: #### C SOWMYA, BMP #### [facility] ([id number]) [address] [place] [address] 31615 Eosinophils/100 WBC (Bld) 4.0 % Normal [facility] Comment on above: Performed By: #### C SOWMYA, BMP #### [facility] ([id number]) [address] [place] [address] 92336 Erythrocyte distribution width (RBC) [Ratio] 18.5 % High 11.5-15.0 [facility] Comment on above: Performed By: #### C SOWMYA, BMP #### [facility] ([id number]) [address] [place] [address] Hematocrit (Bld) [Volume fraction] 28.4 % Low 35-47 [facility] Comment on above: Performed By: #### C SOWMYA, BMP #### [facility] ([id number]) [address] [place] [address] 15178 Hemoglobin (Bld) [Mass/Vol] 9.4 g/dL Low 11.7-15.5 [facility] Comment on above: Performed By: #### C SOWMYA, BMP #### [facility] ([id number]) [address] [place] [address] 26102 Lymphocytes (Bld) [#/Vol] 3.3 10*3/uL Normal 1.0-3.5 [facility] Comment on above: Performed By: #### C SOWMYA, BMP #### [facility] ([id number]) [address] [place] [address] 75797 Lymphocytes/100 WBC (Bld) 37.1 % Normal [facility] Comment on above: Performed By: #### C SOWMYA, BMP #### [facility] ([id number]) [address] [place] [address] 11959 MCH (RBC) [Entitic mass] 24.9 pg Low 27-34 [facility] Comment on above: Performed By: #### C SOWMYA, BMP #### [facility] ([id number]) [address] [place] [address] 64161 MCHC (RBC) [Mass/Vol] 33.0 g/dL Normal 32-36 [facility] Comment on above: Performed By: #### C SOWMYA, BMP #### [facility] ([id number]) [address] [place] [address] 97145 MCV (RBC) [Entitic vol] 76 fL Low 80-100 [facility] Comment on above: Performed By: #### C BCA, BMP #### [facility] ([id number]) [address] [place] [address] 67513 Monocytes (Bld) [#/Vol] 1.0 10*3/uL High 0-0.9 [facility] Comment on above: Performed By: #### C SOWMYA, BMP #### [facility] ([id number]) [address] [place] [address] 17616 Monocytes/100 WBC (Bld) 10.9 % Normal [facility] Comment on above: Performed By: #### C SOWMYA, BMP #### [facility] ([id number]) [address] [place] [address] 81551 Neutrophils/100 WBC (Bld) 46.9 % Normal [facility] Comment on above: Performed By: #### C SOWMYA, BMP #### [facility] ([id number]) [address] [place] [address] 49444 Platelet mean volume (Bld) [Entitic vol] 6.7 fL Low 7-12 [facility] Comment on above: Performed By: #### C SOWMYA, BMP #### [facility] ([id number]) [address] [place] [address] 39939 Platelets (Bld) [#/Vol] 367 10*3/uL Normal 150-450 [facility] Comment on above: Performed By: #### C SOWMYA, BMP #### [facility] ([id number]) [address] [place] [address] 39437 RBC COUNT 3.76 X10E12/L Low 3.80-5.20 [facility] Comment on above: Performed By: #### C SOWMYA, BMP #### [facility] ([id number]) [address] [place] [address] 07756 WBC (Bld) [#/Vol] 9.0 10*3/uL Normal 4.0-11.0 [facility] Comment on above: Performed By: #### C BCA, BMP #### [facility] ([id number]) [address] [place] [address] 77703 CREATININEon 04-08-2024 Creatinine [Mass/Vol] 1.09 mg/dL High 0.40-1.00 [facility] Comment on above: Result Comment: METH OD TRACEABLE TO IDMS STANDARD Performed By: #### C SOWMYA, BMP #### [facility] ([id number]) [address] [place] [address] 96587 GFR/1.73 sq M.predicted among non-blacks MDRD (S/P/Bld) [Vol rate/Area] 52 mL/min/{1.73_m2} Low >59 [facility] Comment on above: Result Comment: Reported eGFR is based on the CKD-EPI 2020 equation that does not use a race coefficient. Performed By: #### C SOWMYA, BMP #### [facility] ([id number]) [address] [place] [address] 25842 ELECTROLYTESon 04-08-2024 Anion gap [Moles/Vol] 8 mmol/L Normal 5-15 [facility] Comment on above: Performed By: #### C SOWMYA, BMP #### [facility] ([id number]) [address] [place] [address] 95412 Chloride [Moles/Vol] 107 mmol/L Normal 98-109 [facility] Comment on above: Performed By: #### C BCA, BMP #### [facility] ([id number]) [address] [place] [address] 30657 CO2 [Moles/Vol] 24 mmol/L Normal 22-32 [facility] Comment on above: Performed By: #### C BCA, BMP #### [facility] ([id number]) [address] [place] [address] 06260 Potassium [Moles/Vol] 3.8 mmol/L Normal 3.5-5.0 [facility] Comment on above: Performed By: #### C SOWMYA, BMP #### [facility] ([id number]) [address] [place] [address] 20950 Sodium [Moles/Vol] 139 mmol/L Normal 134-146 [facility] Comment on above: Performed By: #### C SOWMYA, BMP #### [facility] ([id number]) [address] [place] [address] 17733 BLOOD UREA NITROGENon 2023 Urea nitrogen [Mass/Vol] 20 mg/dL Normal 5-27 [facility] Comment on above: Performed By: #### C SOWMYA, BMP #### [facility] ([id number]) [address] [place] [address] 24658 CBC AND AUTO DIFFon 04-02-20 24 ABSOLUTE BASOPHIL 0.1 X10E9/L Normal 0.0-0.2 [facility] Comment on above: Performed By: #### C SOWMYA, BMP #### [facility] ([id number]) [address] [place] [address] 77256 ABSOLUTE NEUTROPHIL 4.8 X10E9/L Normal 1.5-6.6 [facility] Comment on above: Performed By: #### C SOWMYA, BMP #### [facility] ([id number]) [address] [place] [address] 30003 Basophils/100 WBC (Bld) 0.7 % Normal [facility] Comment on above: Performed By: #### C BCA, BMP #### [facility] ([id number]) [address] [place] [address] 80610 Eosinophils (Bld) [#/Vol] 0.2 10*3/uL Normal 0.0-0.4 [facility] Comment on above: Performed By: #### C BCA, BMP #### [facility] ([id number]) [address] [place] [address] 56993 Eosinophils/100 WBC (Bld) 2.5 % Normal [facility] Comment on above: Performed By: #### C SOWMYA, BMP #### [facility] ([id number]) [address] [place] [address] 88553 Erythrocyte distribution width (RBC) [Ratio] 18.6 % High 11.5-15.0 [facility] Comment on above: Performed By: #### C SOWMYA, BMP #### [facility] ([id number]) [address] [place] [address] 73862 Hematocrit (Bld) [Volume fraction] 28.2 % Low 35-47 [facility] Comment on above: Performed By: #### C SOWMYA, BMP #### [facility] ([id number]) [address] [place] [address] 64269 Hemoglobin (Bld) [Mass/Vol] 9.1 g/dL Low 11.7-15.5 [facility] Comment on above: Performed By: #### C SOWMYA, BMP #### [facility] ([id number]) [address] [place] [address] 53739 Lymphocytes (Bld) [#/Vol] 3.2 10*3/uL Normal 1.0-3.5 [facility] Comment on above: Performed By: #### C SOWMYA, BMP #### [facility] ([id number]) [address] [place] [address] 01959 Lymphocytes/100 WBC (Bld) 34.4 % Normal [facility] Comment on above: Performed By: #### C SOWMYA, BMP #### [facility] ([id number]) [address] [place] [address] 26635 MCH (RBC) [Entitic mass] 24.5 pg Low 27-34 [facility] Comment on above: Performed By: #### C SOWMYA, BMP #### [facility] ([id number]) [address] [place] [address] 07961 MCHC (RBC) [Mass/Vol] 32.4 g/dL Normal 32-36 [facility] Comment on above: Performed By: #### C SOWMYA, BMP #### [facility] ([id number]) [address] [place] [address] 73707 MCV (RBC) [Entitic vol] 76 fL Low 80-100 [facility] Comment on above: Performed By: #### C SOWMYA, BMP #### [facility] ([id number]) [address] [place] [address] [id number] Monocytes (Bld) [#/Vol] 1.0 10*3/uL High 0-0.9 [facility] Comment on above: Performed By: #### Timmy DENG, BMP #### [facility] ([id number]) [address] [place] [address] [id number] Monocytes/100 WBC (Bld) 11.1 % Normal [facility] Comment on above: Performed By: #### Timmy DENG, BMP #### [facility] ([id number]) [address] [place] [address] 31569 Neutrophils/100 WBC (Bld) 51.3 % Normal [facility] Comment on above: Performed By: #### Timmy DENG, BMP #### [facility] ([id number]) [address] [place] [address] 92119 Platelet mean volume (Bld) [Entitic vol] 6.9 fL Low 7-12 [facility] Comment on above: Performed By: #### Timmy DENG, BMP #### [facility] ([id number]) [address] [place] [address] 40765 Platelets (Bld) [#/Vol] 319 10*3/uL Normal 150-450 [facility] Comment on above: Performed By: #### C SOWMYA, BMP #### [facility] ([id number]) [address] [place] [address] 67866 RBC COUNT 3.72 X10E12/L Low 3.80-5.20 [facility] Comment on above: Performed By: #### C SOWMYA, BMP #### [facility] ([id number]) [address] [place] [address] 45843 WBC (Bld) [#/Vol] 9.4 10*3/uL Normal 4.0-11.0 [facility] Comment on above: Performed By: #### C SOWMYA, BMP #### [facility] ([id number]) [address] [place] [address] 39880 CREATININEon 04-02-2024 Creatinine [Mass/Vol] 1.13 mg/dL High 0.40-1.00 [facility] Comment on above: Result Comment: METH OD TRACEABLE TO IDMS STANDARD Performed By: #### C SOWMYA, BMP #### [facility] ([id number]) [address] [place] [address] 49592 GFR/1.73 sq M.predicted among non-blacks MDRD (S/P/Bld) [Vol rate/Area] 50 mL/min/{1.73_m2} Low >59 [facility] Comment on above: Result Comment: Reported eGFR is based on the CKD-EPI 2020 equation that does not use a race coefficient. Performed By: #### C SOWMYA, BMP #### [facility] ([id number]) [address] [place] [address] 51616 ELECTROLYTESon 04-02-2024 Anion gap [Moles/Vol] 7 mmol/L Normal 5-15 [facility] Comment on above: Performed By: #### C SOWMYA, BMP #### [facility] ([id number]) [address] [place] [address] 72526 Chloride [Moles/Vol] 107 mmol/L Normal 98-109 [facility] Comment on above: Performed By: #### C BCA, BMP #### [facility] ([id number]) [address] [place] [address] 51312 CO2 [Moles/Vol] 25 mmol/L Normal 22-32 [facility] Comment on above: Performed By: #### C BCA, BMP #### [facility] ([id number]) [address] [place] [address] 68898 Potassium [Moles/Vol] 4.1 mmol/L Normal 3.5-5.0 [facility] Comment on above: Performed By: #### C BCA, BMP #### [facility] ([id number]) [address] [place] [address] 03343 Sodium [Moles/Vol] 139 mmol/L Normal 134-146 [facility] Comment on above: Performed By: #### C BCA, BMP #### [facility] ([id number]) [address] [place] [address] 37788 BASIC METABOLIC PANLon 03-30 Anion gap [Moles/Vol] 8 mmol/L Normal 5-15 [facility] Comment on above: Performed By: #### C BCA, BMP #### [facility] ([id number]) [address] [place] [address] 37999 Calcium [Mass/Vol] 9.1 mg/dL Normal 8.5-10.5 [facility] Comment on above: Performed By: #### C BCA, BMP #### [facility] ([id number]) [address] [place] [address] 06920 Chloride [Moles/Vol] 104 mmol/L Normal 98-109 [facility] Comment on above: Performed By: #### C BCA, BMP #### [facility] ([id number]) [address] [place] [address] [place] [address] CO2 [Moles/Vol] 26 mmol/L Normal 22-32 [facility] Comment on above: Performed By: #### C SOWMYA, BMP #### [facility] ([id number]) [address] [place] [address] 28346 Creatinine [Mass/Vol] 1.14 mg/dL High 0.40-1.00 [facility] Comment on above: Result Comment: METH OD TRACEABLE TO IDMS STANDARD Performed By: #### C SOWMYA, BMP #### [facility] ([id number]) [address] [place] [address] 99078 GFR/1.73 sq M.predicted among non-blacks MDRD (S/P/Bld) [Vol rate/Area] 49 mL/min/{1.73_m2} Low >59 [facility] Comment on above: Result Comment: Reported eGFR is based on the CKD-EPI 2020 equation that does not use a race coefficient. Performed By: #### C SOWMYA, BMP #### [facility] ([id number]) [address] [place] [address] 10168 Glucose [Mass/Vol] 101 mg/dL High 65-99 [facility] Comment on above: Performed By: #### C SOWMYA, BMP #### [facility] ([id number]) [address] [place] [address] 66635 Potassium [Moles/Vol] 4.2 mmol/L Normal 3.5-5.0 [facility] Comment on above: Performed By: #### C SOWMYA, BMP #### [facility] ([id number]) [address] [place] [address] 49624 Sodium [Moles/Vol] 138 mmol/L Normal 134-146 [facility] Comment on above: Performed By: #### C SOWMYA, BMP #### [facility] ([id number]) [address] [place] [address] 15068 Urea nitrogen [Mass/Vol] 21 mg/dL Normal 5-27 [facility] Comment on above: Performed By: #### C SOWMYA, BMP #### [facility] ([id number]) [address] [place] [address] 88084 CBC AND AUTO DIFFon 03-18-20 24 ABSOLUTE BASOPHIL 0.1 X10E9/L Normal 0.0-0.2 [facility] Comment on above: Performed By: #### C SOWMYA, BMP #### [facility] ([id number]) [address] [place] [address] 41234 ABSOLUTE NEUTROPHIL 4.5 X10E9/L Normal 1.5-6.6 [facility] Comment on above: Performed By: #### C SOWMYA, BMP #### [facility] ([id number]) [address] [place] [address] 52918 Basophils/100 WBC (Bld) 0.7 % Normal [facility] Comment on above: Performed By: #### C SOWMYA, BMP #### [facility] ([id number]) [address] [place] [address] 77803 Eosinophils (Bld) [#/Vol] 0.4 10*3/uL Normal 0.0-0.4 [facility] Comment on above: Performed By: #### C SOWMYA, BMP #### [facility] ([id number]) [address] [place] [address] 66596 Eosinophils/100 WBC (Bld) 4.1 % Normal [facility] Comment on above: Performed By: #### C SOWMYA, BMP #### [facility] ([id number]) [address] [place] [address] 29421 Erythrocyte distribution width (RBC) [Ratio] 18.8 % High 11.5-15.0 [facility] Comment on above: Performed By: #### C SOWMYA, BMP #### [facility] ([id number]) [address] [place] [address] 48590 Hematocrit (Bld) [Volume fraction] 28.0 % Low 35-47 [facility] Comment on above: Performed By: #### C SOWMYA, BMP #### [facility] ([id number]) [address] [place] [address] 50968 Hemoglobin (Bld) [Mass/Vol] 9.1 g/dL Low 11.7-15.5 [facility] Comment on above: Performed By: #### C SOWMYA, BMP #### [facility] ([id number]) [address] [place] [address] 10421 Lymphocytes (Bld) [#/Vol] 2.9 10*3/uL Normal 1.0-3.5 [facility] Comment on above: Performed By: #### C SOWMYA, BMP #### [facility] ([id number]) [address] [place] [address] 11853 Lymphocytes/100 WBC (Bld) 33.2 % Normal [facility] Comment on above: Performed By: #### C SOWMYA, BMP #### [facility] ([id number]) [address] [place] [address] 34395 MCH (RBC) [Entitic mass] 24.4 pg Low 27-34 [facility] Comment on above: Performed By: #### C SOWMYA, BMP #### [facility] ([id number]) [address] [place] [address] 93373 MCHC (RBC) [Mass/Vol] 32.3 g/dL Normal 32-36 [facility] Comment on above: Performed By: #### C SOWMYA, BMP #### [facility] ([id number]) [address] [place] [address] 12132 MCV (RBC) [Entitic vol] 76 fL Low 80-100 [facility] Comment on above: Performed By: #### C SOWMYA, BMP #### [facility] ([id number]) [address] [place] [address] 28351 Monocytes (Bld) [#/Vol] 0.8 10*3/uL Normal 0-0.9 [facility] Comment on above: Performed By: #### C SOWMYA, BMP #### [facility] ([id number]) [address] [place] [address] 94036 Monocytes/100 WBC (Bld) 9.4 % Normal [facility] Comment on above: Performed By: #### C SOWMYA, BMP #### [facility] ([id number]) [address] [place] [address] 90620 Neutrophils/100 WBC (Bld) 52.6 % Normal [facility] Comment on above: Performed By: #### C SOWMYA, BMP #### [facility] ([id number]) [address] [place] [address] 26048 Platelet mean volume (Bld) [Entitic vol] 6.8 fL Low 7-12 [facility] Comment on above: Performed By: #### C SOWMYA, BMP #### [facility] ([id number]) [address] [place] [address] 17312 Platelets (Bld) [#/Vol] 405 10*3/uL Normal 150-450 [facility] Comment on above: Performed By: #### C SOWMYA, BMP #### [facility] ([id number]) [address] [place] [address] 97422 RBC COUNT 3.71 X10E12/L Low 3.80-5.20 [facility] Comment on above: Performed By: #### C SOWMYA, BMP #### [facility] ([id number]) [address] [place] [address] 13567 WBC (Bld) [#/Vol] 8.6 10*3/uL Normal 4.0-11.0 [facility] Comment on above: Performed By: #### C SOWMYA, BMP #### [facility] ([id number]) [address] [place] [address] 83088 BLOOD UREA NITROGENon 2023 Urea nitrogen [Mass/Vol] 14 mg/dL Normal 5-27 [facility] Comment on above: Performed By: #### C SOWMYA, BMP #### [facility] ([id number]) [address] [place] [address] 59400 CBC AND AUTO DIFFon 03-11-20 ABSOLUTE BASOPHIL 0.1 X10E9/L Normal 0.0-0.2 [facility] Comment on above: Performed By: #### C SOWMYA, BMP #### [facility] ([id number]) [address] [place] [address] 48302 ABSOLUTE NEUTROPHIL 6.8 X10E9/L High 1.5-6.6 [facility] Comment on above: Performed By: #### C SOWMYA, BMP #### [facility] ([id number]) [address] [place] [address] 98953 Basophils/100 WBC (Bld) 0.6 % Normal [facility] Comment on above: Performed By: #### C SOWMYA, BMP #### [facility] ([id number]) [address] [place] [address] 41603 Eosinophils (Bld) [#/Vol] 0.4 10*3/uL Normal 0.0-0.4 [facility] Comment on above: Performed By: #### C SOWMYA, BMP #### [facility] ([id number]) [address] [place] [address] 30778 Eosinophils/100 WBC (Bld) 3.7 % Normal [facility] Comment on above: Performed By: #### C SOWMYA, BMP #### [facility] ([id number]) [address] [place] [address] 67157 Erythrocyte distribution width (RBC) [Ratio] 18.8 % High 11.5-15.0 [facility] Comment on above: Performed By: #### C SOWMYA, BMP #### [facility] ([id number]) [address] [place] [address] 69070 Hematocrit (Bld) [Volume fraction] 27.4 % Low 35-47 [facility] Comment on above: Performed By: #### C SOWMYA, BMP #### [facility] ([id number]) [address] [place] [address] 03012 Hemoglobin (Bld) [Mass/Vol] 8.8 g/dL Low 11.7-15.5 [facility] Comment on above: Performed By: #### C SOWMYA, BMP #### [facility] ([id number]) [address] [place] [address] 69152 Lymphocytes (Bld) [#/Vol] 3.3 10*3/uL Normal 1.0-3.5 [facility] Comment on above: Performed By: #### C SOWMYA, BMP #### [facility] ([id number]) [address] [place] [address] 87923 Lymphocytes/100 WBC (Bld) 27.7 % Normal [facility] Comment on above: Performed By: #### C SOWMYA, BMP #### [facility] ([id number]) [address] [place] [address] 88200 MCH (RBC) [Entitic mass] 24.7 pg Low 27-34 [facility] Comment on above: Performed By: #### C SOWMYA, BMP #### [facility] ([id number]) [address] [place] [address] 57334 MCHC (RBC) [Mass/Vol] 32.3 g/dL Normal 32-36 [facility] Comment on above: Performed By: #### C SOWMYA, BMP #### [facility] ([id number]) [address] [place] [address] 59296 MCV (RBC) [Entitic vol] 77 fL Low 80-100 [facility] Comment on above: Performed By: #### C SOWMYA, BMP #### [facility] ([id number]) [address] [place] [address] 95541 Monocytes (Bld) [#/Vol] 1.2 10*3/uL High 0-0.9 [facility] Comment on above: Performed By: #### C SOWMYA, BMP #### [facility] ([id number]) [address] [place] [address] 64127 Monocytes/100 WBC (Bld) 10.4 % Normal [facility] Comment on above: Performed By: #### C SOWMYA, BMP #### [facility] ([id number]) [address] [place] [address] 65149 Neutrophils/100 WBC (Bld) 57.6 % Normal [facility] Comment on above: Performed By: #### C SOWMYA, BMP #### [facility] ([id number]) [address] [place] [address] 05127 Platelet mean volume (Bld) [Entitic vol] 7.3 fL Normal 7-12 [facility] Comment on above: Performed By: #### C SOWMYA, BMP #### [facility] ([id number]) [address] [place] [address] 18322 Platelets (Bld) [#/Vol] 255 10*3/uL Normal 150-450 [facility] Comment on above: Performed By: #### C SOWMYA, BMP #### [facility] ([id number]) [address] [place] [address] 59252 RBC COUNT 3.58 X10E12/L Low 3.80-5.20 [facility] Comment on above: Performed By: #### C SOWMYA, BMP #### [facility] ([id number]) [address] [place] [address] 13427 WBC (Bld) [#/Vol] 11.8 10*3/uL High 4.0-11.0 [facility] Comment on above: Performed By: #### C SOWMYA, BMP #### [facility] ([id number]) [address] [place] [address] 05361 CREATININEon 03-11-2024 Creatinine [Mass/Vol] 1.09 mg/dL High 0.40-1.00 [facility] Comment on above: Result Comment: METH OD TRACEABLE TO IDMS STANDARD Performed By: #### C SOWMYA, BMP #### [facility] ([id number]) [address] [place] [address] 16293 GFR/1.73 sq M.predicted among non-blacks MDRD (S/P/Bld) [Vol rate/Area] 52 mL/min/{1.73_m2} Low >59 [facility] Comment on above: Result Comment: Reported eGFR is based on the CKD-EPI 2020 equation that does not use a race coefficient. Performed By: #### C BCA, BMP #### [facility] ([id number]) [address] [place] [address] 25023 ELECTROLYTESon 03-11-2024 Anion gap [Moles/Vol] 7 mmol/L Normal 5-15 [facility] Comment on above: Performed By: #### E LEC, 3094-0, ELECTRIC CRANE OPERATOR, CBCA #### [facility] ([id number]) [address] [place] [address] 76756 Chloride [Moles/Vol] 106 mmol/L Normal 98-109 [facility] Comment on above: Performed By: #### E LEC, 3094-0, ELECTRIC CRANE OPERATOR, CBCA #### [facility] ([id number]) [address] [place] [address] [place] [address] CO2 [Moles/Vol] 27 mmol/L Normal 22-32 [facility] Comment on above: Performed By: #### E LEC, 3094-0, ELECTRIC CRANE OPERATOR, CBCA #### [facility] ([id number]) [address] [place] [address] 53575 Potassium [Moles/Vol] 4.2 mmol/L Normal 3.5-5.0 [facility] Comment on above: Performed By: #### E LEC, 3094-0, ELECTRIC CRANE OPERATOR, CBCA #### [facility] ([id number]) [address] [place] [address] 58316 Sodium [Moles/Vol] 140 mmol/L Normal 134-146 [facility] Comment on above: Performed By: #### Analy LEC, 3094-0, ELECTRIC CRANE OPERATOR, CBCA #### [facility] ([id number]) [address] [place] [address] 87865 CBC AND AUTO DIFFon 03-05-20 24 ABSOLUTE BASOPHIL 0.1 X10E9/L Normal 0.0-0.2 [facility] Comment on above: Performed By: #### C BCA #### [facility] ([id number]) [address] [place] [address] 67484 #### 30710-4 #### [facility] ([id number]) [address], [address] [place] [address] ABSOLUTE NEUTROPHIL 6.2 X10E9/L Normal 1.5-6.6 [facility] Comment on above: Performed By: #### C BCA #### [facility] ([id number]) [address] [place] [address] 02562 #### 86795-5 #### [facility] ([id number]) [address], [address] [place] [address] Basophils/100 WBC (Bld) 0.6 % Normal [facility] Comment on above: Performed By: #### C BCA #### [facility] ([id number]) [address] [place] [address] 27655 #### 47288-4 #### [facility] ([id number]) [address], [address] [place] [address] Eosinophils (Bld) [#/Vol] 0.3 10*3/uL Normal 0.0-0.4 [facility] Comment on above: Performed By: #### C BCA #### [facility] ([id number]) [address] [place] [address] 75184 #### 61735-5 #### [facility] ([id number]) [address], [address] [place] [address] Eosinophils/100 WBC (Bld) 2.4 % Normal [facility] Comment on above: Performed By: #### C BCA #### [facility] ([id number]) [address] [place] [address] 40717 #### 35107-6 #### [facility] ([id number]) [address], [address] [place] [address] Erythrocyte distribution width (RBC) [Ratio] 18.9 % High 11.5-15.0 [facility] Comment on above: Performed By: #### C BCA #### [facility] ([id number]) [address] [place] [address] 68883 #### 99709-8 #### [facility] ([id number]) [address], [address] [place] [address] Hematocrit (Bld) [Volume fraction] 30.3 % Low 35-47 [facility] Comment on above: Performed By: #### C BCA #### [facility] ([id number]) [address] [place] [address] 60025 #### 40031-6 #### [facility] ([id number]) [address] [facility], [address] [place] [address] Hemoglobin (Bld) [Mass/Vol] 9.7 g/dL Low 11.7-15.5 [facility] Comment on above: Performed By: #### C BCA #### [facility] ([id number]) [address] [place] [address] 94046 #### 13213-1 #### [facility] ([id number]) [address] [facility], [address] [place] [address] Lymphocytes (Bld) [#/Vol] 3.8 10*3/uL High 1.0-3.5 [facility] Comment on above: Performed By: #### C BCA #### [facility] ([id number]) [address] [place] [address] 99462 #### 56576-3 #### [facility] ([id number]) [address] [place] [address], [address] [place] [address] Lymphocytes/100 WBC (Bld) 32.9 % Normal [facility] Comment on above: Performed By: #### C BCA #### [facility] ([id number]) [address] [place] [address] 86348 #### 51542-2 #### [facility] ([id number]) [address] [facility], [address] [place] [address] MCH (RBC) [Entitic mass] 24.6 pg Low 27-34 [facility] Comment on above: Performed By: #### C BCA #### [facility] ([id number]) [address] [place] [address] 82591 #### 25198-7 #### [facility] ([id number]) [address], [address] [place] [address] MCHC (RBC) [Mass/Vol] 32.1 g/dL Normal 32-36 [facility] Comment on above: Performed By: #### C BCA #### [facility] ([id number]) [address] [place] [address] 78183 #### 06053-2 #### [facility] ([id number]) [address], [address] [place] [address] MCV (RBC) [Entitic vol] 77 fL Low 80-100 [facility] Comment on above: Performed By: #### C BCA #### [facility] ([id number]) [address] [place] [address] 82217 #### 82931-2 #### [facility] ([id number]) [address], [address] [place] [address] Monocytes (Bld) [#/Vol] 1.3 10*3/uL High 0-0.9 [facility] Comment on above: Performed By: #### C BCA #### [facility] ([id number]) [address] [place] [address] 61994 #### 29963-0 #### [facility] ([id number]) [address], [address] [place] [address] Monocytes/100 WBC (Bld) 11.0 % Normal [facility] Comment on above: Performed By: #### C BCA #### [facility] ([id number]) [address] [place] [address] 71143 #### 70902-3 #### [facility] ([id number]) [address], [address] [place] [address] Neutrophils/100 WBC (Bld) 53.1 % Normal [facility] Comment on above: Performed By: #### C BCA #### [facility] ([id number]) [address] [place] [address] 40580 #### 97023-9 #### [facility] ([id number]) [address], [address] [place] [address] Platelet mean volume (Bld) [Entitic vol] 7.5 fL Normal 7-12 [facility] Comment on above: Performed By: #### C BCA #### [facility] ([id number]) [address] [place] [address] 55758 #### 26943-4 #### [facility] ([id number]) [address], [address] [place] [address] Platelets (Bld) [#/Vol] 320 10*3/uL Normal 150-450 [facility] Comment on above: Performed By: #### C BCA #### [facility] ([id number]) [address] [place] [address] 43651 #### 36764-3 #### [facility] ([id number]) [address], [address] [place] [address] RBC COUNT 3.96 X10E12/L Normal 3.80-5.20 [facility] Comment on above: Performed By: #### C BCA #### [facility] ([id number]) [address] [place] [address] 58029 #### 01215-7 #### [facility] ([id number]) [address], [address] [place] [address] WBC (Bld) [#/Vol] 11.7 10*3/uL High 4.0-11.0 [facility] Comment on above: Performed By: #### C BCA #### [facility] ([id number]) [address] [place] [address] #### [id number] #### [facility] ([id number]) [address], [address] [place] [address] ESR Photometric method (Bld) [Velocity]on 03-05-2024 ESR, ERYTHROCYTE SEDIMENTATION RATE 43 mm/h High 0-30 [facility] Comment on above: Performed By: #### C [facility] #### [facility] ([id number]) [address] [place] [address] #### [id number] #### [facility] ([id number]) [address] [place] [address] FL SWALLOW MOTILITY FUNCTION on 03-04-2024 FL [...] Dowell MD on 03/04/2024 10:58 AM Normal [facility] URINALYSISon 03-03-2024 Bilirubin Ql (U) Negative Normal NEG [facility] Comment on above: Performed By: #### U A #### [facility] ([id number]) [address] [place] [address] BLOOD/HGB Negative Normal NEG [facility] Comment on above: Performed By: #### U A #### [facility] ([id number]) [address] [place] [address] Color (U) YELLOW Normal YELLOW [facility] Comment on above: Performed By: #### U A #### [facility] ([id number]) [address] [place] [address] Glucose Ql (U) Negative Normal NEG [facility] Comment on above: Performed By: #### U A #### [facility] ([id number]) [address] [place] [address] [place] [address] Ketones Ql (U) Negative Normal NEG [facility] Comment on above: Performed By: #### U A #### [facility] ([id number]) [address] [place] [address] Leukocyte esterase Test strip Ql (U) Negative Normal NEG [facility] Comment on above: Performed By: #### U A #### [facility] ([id number]) [address] [place] [address] Nitrite Ql (U) Negative Normal NEG [facility] Comment on above: Performed By: #### U A #### [facility] ([id number]) [address] [place] [address] pH (U) 6.0 [pH] Normal 5.0-8.5 [facility] Comment on above: Performed By: #### U A #### [facility] ([id number]) [address] [place] [address] Protein Ql (U) Negative Normal NEG [facility] Comment on above: Performed By: #### U A #### [facility] ([id number]) [address] [place] [address] [place] [address] Specific gravity (U) [Rel density] 1.020 Normal 1.003-1.03 5 [facility] Comment on above: Performed By: #### U A #### [facility] [facility] ([id number]) [address] [place] [address] 67822 TURBIDITY CLEAR Normal CLEAR [facility] Comment on above: Performed By: #### U A #### [facility] ([id number]) [address] [place] [address] 19920 Urobilinogen Qn (U) 0.2 {Jose'U}/dL Normal <1.1 [facility] Comment on above: Performed By: #### U A #### [facility] ([id number]) [address] [place] [address] 42741 URINE CULTUREon 03-03-2024 Bacteria identified Cx Nom (U) CULTURE RESULTS NO GROWTH AT <1000 CFU/mL Normal [facility] Comment on above: Performed By: #### 6 30-4 #### [facility] ([id number]) [address] [place] [address], [address] [place] [address] BASIC METABOLIC PANLon 03-02 Anion gap [Moles/Vol] 9 mmol/L Normal 5-15 [facility] Comment on above: Performed By: #### C BCA, BMP #### [facility] ([id number]) [address] [place] [address] 87554 Calcium [Mass/Vol] 8.4 mg/dL Low 8.5-10.5 [facility] Comment on above: Performed By: #### C BCA, BMP #### [facility] ([id number]) [address] [place] [address] 93297 Chloride [Moles/Vol] 106 mmol/L Normal 98-109 [facility] Comment on above: Performed By: #### C BCA, BMP #### [facility] ([id number]) [address] [place] [address] 10625 CO2 [Moles/Vol] 27 mmol/L Normal 22-32 [facility] Comment on above: Performed By: #### C BCA, BMP #### [facility] ([id number]) [address] [place] [address] 06301 Creatinine [Mass/Vol] 1.13 mg/dL High 0.40-1.00 [facility] Comment on above: Result Comment: METH OD TRACEABLE TO IDMS STANDARD Performed By: #### C BCA, BMP #### [facility] ([id number]) [address] [place] [address] 49432 GFR/1.73 sq M.predicted among non-blacks MDRD (S/P/Bld) [Vol rate/Area] 50 mL/min/{1.73_m2} Low >59 [facility] Comment on above: Result Comment: Reported eGFR is based on the CKD-EPI 2020 equation that does not use a race coefficient. Performed By: #### C BCA, BMP #### [facility] ([id number]) [address] [place] [address] 86712 Glucose [Mass/Vol] 106 mg/dL High 65-99 [facility] Comment on above: Performed By: #### C BCA, BMP #### [facility] ([id number]) [address] [place] [address] 99948 Potassium [Moles/Vol] 3.4 mmol/L Low 3.5-5.0 [facility] Comment on above: Performed By: #### C BCA, BMP #### [facility] ([id number]) [address] [place] [address] 93880 Sodium [Moles/Vol] 142 mmol/L Normal 134-146 [facility] Comment on above: Performed By: #### C BCA, BMP #### [facility] ([id number]) [address] [place] [address] 79883 Urea nitrogen [Mass/Vol] 35 mg/dL High 5-27 [facility] Comment on above: Performed By: #### C BCA, BMP #### [facility] ([id number]) [address] [place] [address] 82740 CBC AND AUTO DIFFon 03-02-20 24 ABSOLUTE BASOPHIL 0.1 X10E9/L Normal 0.0-0.2 [facility] Comment on above: Performed By: #### C SOWMYA, BMP #### [facility] ([id number]) [address] [place] [address] 58576 ABSOLUTE NEUTROPHIL 7.0 X10E9/L High 1.5-6.6 [facility] Comment on above: Performed By: #### C SOWMYA, BMP #### [facility] ([id number]) [address] [place] [address] 12755 Basophils/100 WBC (Bld) 0.6 % Normal [facility] Comment on above: Performed By: #### Timmy DENG, BMP #### [facility] ([id number]) [address] [place] [address] 94930 Eosinophils (Bld) [#/Vol] 0.1 10*3/uL Normal 0.0-0.4 [facility] Comment on above: Performed By: #### Timmy DENG, BMP #### [facility] ([id number]) [address] [place] [address] 35647 Eosinophils/100 WBC (Bld) 0.5 % Normal [facility] Comment on above: Performed By: #### Timmy DENG, BMP #### [facility] ([id number]) [address] [place] [address] 73687 Erythrocyte distribution width (RBC) [Ratio] 18.2 % High 11.5-15.0 [facility] Comment on above: Performed By: #### Timmy DENG, BMP #### [facility] ([id number]) [address] [place] [address] 90374 Hematocrit (Bld) [Volume fraction] 30.8 % Low 35-47 [facility] Comment on above: Performed By: #### C SOWMYA, BMP #### [facility] ([id number]) [address] [place] [address] 36177 Hemoglobin (Bld) [Mass/Vol] 10.0 g/dL Low 11.7-15.5 [facility] Comment on above: Performed By: #### C SOWMYA, BMP #### [facility] ([id number]) [address] [place] [address] 68637 Lymphocytes (Bld) [#/Vol] 4.1 10*3/uL High 1.0-3.5 [facility] Comment on above: Performed By: #### C SOWMYA, BMP #### [facility] ([id number]) [address] [place] [address] 66221 Lymphocytes/100 WBC (Bld) 32.1 % Normal [facility] Comment on above: Performed By: #### C SOWMYA, BMP #### [facility] ([id number]) [address] [place] [address] 83328 MCH (RBC) [Entitic mass] 24.9 pg Low 27-34 [facility] Comment on above: Performed By: #### C SOWMYA, BMP #### [facility] ([id number]) [address] [place] [address] 62976 MCHC (RBC) [Mass/Vol] 32.3 g/dL Normal 32-36 [facility] Comment on above: Performed By: #### C SOWMYA, BMP #### [facility] ([id number]) [address] [place] [address] 57970 MCV (RBC) [Entitic vol] 77 fL Low 80-100 [facility] Comment on above: Performed By: #### C BCA, BMP #### [facility] ([id number]) [address] [place] [address] 89771 Monocytes (Bld) [#/Vol] 1.5 10*3/uL High 0-0.9 [facility] Comment on above: Performed By: #### C SOWMYA, BMP #### [facility] ([id number]) [address] [place] [address] 66359 Monocytes/100 WBC (Bld) 11.5 % Normal [facility] Comment on above: Performed By: #### C SOWMYA, BMP #### [facility] ([id number]) [address] [place] [address] 68053 Neutrophils/100 WBC (Bld) 55.3 % Normal [facility] Comment on above: Performed By: #### C SOWMYA, BMP #### [facility] ([id number]) [address] [place] [address] 44647 Platelet mean volume (Bld) [Entitic vol] 7.4 fL Normal 7-12 [facility] Comment on above: Performed By: #### C SOWMYA, BMP #### [facility] ([id number]) [address] [place] [address] 01243 Platelets (Bld) [#/Vol] 360 10*3/uL Normal 150-450 [facility] Comment on above: Performed By: #### C SOWMYA, BMP #### [facility] ([id number]) [address] [place] [address] 08064 RBC COUNT 4.00 X10E12/L Normal 3.80-5.20 [facility] Comment on above: Performed By: #### C SOWMYA, BMP #### [facility] ([id number]) [address] [place] [address] 52744 WBC (Bld) [#/Vol] 12.7 10*3/uL High 4.0-11.0 [facility] Comment on above: Performed By: #### C SOWMYA, BMP #### [facility] ([id number]) [address] [place] [address] 06823 BASIC METABOLIC PANLon 02-26 Anion gap [Moles/Vol] 8 mmol/L Normal 5-15 [facility] Comment on above: Performed By: #### C BCA, BMP #### [facility] ([id number]) [address] [place] [address] 20809 Calcium [Mass/Vol] 8.7 mg/dL Normal 8.5-10.5 [facility] Comment on above: Performed By: #### C BCA, BMP #### [facility] ([id number]) [address] [place] [address] 28174 Chloride [Moles/Vol] 97 mmol/L Low 98-109 [facility] Comment on above: Performed By: #### C SOWMYA, BMP #### [facility] ([id number]) [address] [place] [address] 23185 CO2 [Moles/Vol] 29 mmol/L Normal 22-32 [facility] Comment on above: Performed By: #### C BCA, BMP #### [facility] ([id number]) [address] [place] [address] 89000 Creatinine [Mass/Vol] 1.22 mg/dL High 0.40-1.00 [facility] Comment on above: Result Comment: METH OD TRACEABLE TO IDMS STANDARD Performed By: #### C BCA, BMP #### [facility] ([id number]) [address] [place] [address] 09223 GFR/1.73 sq M.predicted among non-blacks MDRD (S/P/Bld) [Vol rate/Area] 45 mL/min/{1.73_m2} Low >59 [facility] Comment on above: Result Comment: Reported eGFR is based on the CKD-EPI 2020 equation that does not use a race coefficient. Performed By: #### C BCA, BMP #### [facility] ([id number]) [address] [place] [address] 07770 Glucose [Mass/Vol] 123 mg/dL High 65-99 [facility] Comment on above: Performed By: #### C SOWMYA, BMP #### [facility] ([id number]) [address] [place] [address] 95011 Potassium [Moles/Vol] 4.0 mmol/L Normal 3.5-5.0 [facility] Comment on above: Performed By: #### C SOWMYA, BMP #### [facility] ([id number]) [address] [place] [address] 86074 Sodium [Moles/Vol] 134 mmol/L Normal 134-146 [facility] Comment on above: Performed By: #### C SOWMYA, BMP #### [facility] ([id number]) [address] [place] [address] 46594 Urea nitrogen [Mass/Vol] 35 mg/dL High 5-27 [facility] Comment on above: Performed By: #### C SOWMYA, BMP #### [facility] ([id number]) [address] [place] [address] 41182 CBC AND AUTO DIFFon 02-27-20 24 Eosinophils (Bld) [#/Vol] 0.2 10*3/uL Normal 0.0-0.4 [facility] Comment on above: Performed By: #### C SOWMYA, BMP #### [facility] ([id number]) [address] [place] [address] 62593 Eosinophils/100 WBC (Bld) 1.0 % Normal [facility] Comment on above: Performed By: #### C SOWMYA, BMP #### [facility] ([id number]) [address] [place] [address] 95346 Erythrocyte distribution width (RBC) [Ratio] 18.2 % High 11.5-15.0 [facility] Comment on above: Performed By: #### C SOWMYA, BMP #### [facility] ([id number]) [address] [place] [address] 70478 Hematocrit (Bld) [Volume fraction] 35.1 % Normal 35-47 [facility] Comment on above: Performed By: #### C SOWMYA, BMP #### [facility] ([id number]) [address] [place] [address] 14923 Hemoglobin (Bld) [Mass/Vol] 11.4 g/dL Low 11.7-15.5 [facility] Comment on above: Performed By: #### C SOWMYA, BMP #### [facility] ([id number]) [address] [place] [address] 86786 Lymphocytes (Bld) [#/Vol] 4.0 10*3/uL High 1.0-3.5 [facility] Comment on above: Performed By: #### C SOWMYA, BMP #### [facility] ([id number]) [address] [place] [address] 77493 Lymphocytes/100 WBC (Bld) 21.0 % Normal [facility] Comment on above: Performed By: #### C SOWMYA, BMP #### [facility] ([id number]) [address] [place] [address] 23125 MCH (RBC) [Entitic mass] 24.6 pg Low 27-34 [facility] Comment on above: Performed By: #### C SOWMYA, BMP #### [facility] ([id number]) [address] [place] [address] 98343 MCHC (RBC) [Mass/Vol] 32.5 g/dL Normal 32-36 [facility] Comment on above: Performed By: #### C SOWMYA, BMP #### [facility] ([id number]) [address] [place] [address] 67705 MCV (RBC) [Entitic vol] 76 fL Low 80-100 [facility] Comment on above: Performed By: #### C SOWMYA, BMP #### [facility] ([id number]) [address] [place] [address] 25924 Monocytes (Bld) [#/Vol] 1.4 10*3/uL High 0-0.9 [facility] Comment on above: Performed By: #### C SOWMYA, BMP #### [facility] ([id number]) [address] [place] [address] 29563 Monocytes/100 WBC (Bld) 7.6 % Normal [facility] Comment on above: Performed By: #### C SOWMYA, BMP #### [facility] ([id number]) [address] [place] [address] 03774 MYELOCYTE 1.0 % Normal [facility] Comment on above: Performed By: #### C SOWMYA, BMP #### [facility] ([id number]) [address] [place] [address] 21193 Neutrophils (Bld) [#/Vol] 13.1 10*3/uL High 1.5-6.6 [facility] Comment on above: Performed By: #### C SOWMYA, BMP #### [facility] ([id number]) [address] [place] [address] 21450 Platelet mean volume (Bld) [Entitic vol] 7.2 fL Normal 7-12 [facility] Comment on above: Performed By: #### C SOWMYA, BMP #### [facility] ([id number]) [address] [place] [address] 38558 Platelets (Bld) [#/Vol] 398 10*3/uL Normal 150-450 [facility] Comment on above: Performed By: #### C SOWMYA, BMP #### [facility] ([id number]) [address] [place] [address] 42093 RBC COUNT 4.63 X10E12/L Normal 3.80-5.20 [facility] Comment on above: Performed By: #### C SOWMYA, BMP #### [facility] ([id number]) [address] [place] [address] 54685 SEG NEUTROPHIL 69.4 % Normal [facility] Comment on above: Performed By: #### C SOWMYA, BMP #### [facility] ([id number]) [address] [place] [address] 38438 WBC (Bld) [#/Vol] 18.9 10*3/uL High 4.0-11.0 [facility] Comment on above: Performed By: #### C SOWMYA, BMP #### [facility] ([id number]) [address] [place] [address] 84846 CBC AND AUTO DIFFon 02-25-20 24 Band form neutrophils/100 WBC (Bld) 1.0 % Normal [facility] Comment on above: Performed By: #### E LEC #### [facility] ([id number]) [address], [address] [place] [address] Erythrocyte distribution width (RBC) [Ratio] 18.4 % High 11.5-15.[address] [facility] Comment on above: Performed By: #### E LEC #### [facility] ([id number]) [address], [address] [place] [address] Hematocrit (Bld) [Volume fraction] 36.0 % Normal 35-[address] [facility] Comment on above: Performed By: #### E LEC #### [facility] ([id number]) [address], [address] [place] [address] Hemoglobin (Bld) [Mass/Vol] 11.6 g/dL Low 11.7-15.[address] [facility] Comment on above: Performed By: #### E LEC #### [facility] ([id number]) [address], [address] [place] [address] HYPOCHROMIA 1+ Abnormal NONE [facility] Comment on above: Performed By: #### E LEC #### [facility] ([id number]) [address], [address] [place] [address] Lymphocytes (Bld) [#/Vol] 4.6 10*3/uL High 1.0-3.[address] [facility] Comment on above: Performed By: #### E LEC #### [facility] ([id number]) [address], [address] [place] [address] Lymphocytes/100 WBC (Bld) 28.0 % Normal [facility] Comment on above: Performed By: #### E LEC #### [facility] ([id number]) [address], [address] [place] [address] MCH (RBC) [Entitic mass] 24.9 pg Low 27-[address] [facility] Comment on above: Performed By: #### E LEC #### [facility] ([id number]) [address], [address] [place] [address] MCHC (RBC) [Mass/Vol] 32.3 g/dL Normal 32-36 [facility] Comment on above: Performed By: #### E LEC #### [facility] ([id number]) [address], [address] [place] [address] MCV (RBC) [Entitic vol] 77 fL Low 80-[address] [facility] Comment on above: Performed By: #### E LEC #### [facility] ([id number]) [address], [address] [place] [address] Monocytes (Bld) [#/Vol] 1.3 10*3/uL High 0-0.[address] [facility] Comment on above: Performed By: #### E LEC #### [facility] ([id number]) [address], [address] [place] [address] Monocytes/100 WBC (Bld) 8.0 % Normal [facility] Comment on above: Performed By: #### E LEC #### [facility] ([id number]) [address], [address] [place] [address] MYELOCYTE 1.0 % Normal [facility] Comment on above: Performed By: #### E LEC #### [facility] ([id number]) [address], [address] [place] [address] Neutrophils (Bld) [#/Vol] 10.2 10*3/uL High 1.5-6.[address] [facility] Comment on above: Performed By: #### E LEC #### [facility] ([id number]) [address], [address] [place] [address] Platelet mean volume (Bld) [Entitic vol] 6.8 fL Low 7-[address] [facility] Comment on above: Performed By: #### E LEC #### [facility] ([id number]) [address], [address] [place] [address] Platelets (Bld) [#/Vol] 480 10*3/uL High 150-[address] [facility] Comment on above: Performed By: #### E LEC #### [facility] ([id number]) [address], [address] [place] [address] RBC COUNT 4.66 X10E12/L Normal 3.80-5.[address] [facility] Comment on above: Performed By: #### E LEC #### [facility] ([id number]) [address], [address] [place] [address] SEG NEUTROPHIL 62.0 % Normal [facility] Comment on above: Performed By: #### E LEC #### [facility] ([id number]) [address], [address] [place] [address] WBC (Bld) [#/Vol] 16.3 10*3/uL High 4.0-11.0 [facility] Comment on above: Performed By: #### E LEC #### [facility] ([id number]) [address], [address] [place] [address] COMPREHENSIVE METABOLIC PANE Harsha 02-25-2024 Albumin [Mass/Vol] 2.8 g/dL Low 3.2-5.3 [facility] Comment on above: Performed By: #### E LEC #### [facility] ([id number]) [address] [place] [address] ALP [Catalytic activity/Vol] 61 U/L Normal 39-[address] [facility] Comment on above: Performed By: #### E LEC #### [facility] ([id number]) [address], [address] [place] [address] ALT [Catalytic activity/Vol] 16 U/L Normal 0-[address] [facility] Comment on above: Performed By: #### E LEC #### [facility] ([id number]) [address], [address] [place] [address] Anion gap [Moles/Vol] 8 mmol/L Normal 5-15 [facility] Comment on above: Performed By: #### E LEC #### [facility] ([id number]) [address], [address] [place] [address] AST [Catalytic activity/Vol] 20 U/L Normal 0-[address] [facility] Comment on above: Performed By: #### E LEC #### [facility] ([id number]) [address], [address] [place] [address] Bilirubin [Mass/Vol] 0.3 mg/dL Normal 0.3-1.2 [facility] Comment on above: Performed By: #### E LEC #### [facility] ([id number]) [address], [address] [place] [address] Calcium [Mass/Vol] 9.1 mg/dL Normal 8.5-10.5 [facility] Comment on above: Performed By: #### E LEC #### [facility] ([id number]) [address], [address] [place] [address] Chloride [Moles/Vol] 101 mmol/L Normal 98-109 [facility] Comment on above: Performed By: #### E LEC #### [facility] ([id number]) [address], [address] [place] [address] CO2 [Moles/Vol] 29 mmol/L Normal 22-[address] [facility] Comment on above: Performed By: #### E LEC #### [facility] ([id number]) [address] [address] [place] [address] Creatinine [Mass/Vol] 1.16 mg/dL High 0.40-1.00 [facility] Comment on above: Result Comment: METH OD TRACEABLE TO IDMS STANDARD Performed By: #### E LEC #### [facility] ([id number]) [address] [address] GFR/1.73 sq M.predicted among non-blacks MDRD (S/P/Bld) [Vol rate/Area] 48 mL/min/{1.73_m2} Low >[address] [facility] Comment on above: Result Comment: Reported eGFR is based on the CKD-EPI 1 equation that does not use a race coefficient. Performed By: #### E LEC #### [facility] ([id number]) [address] [address] [place] [address] Glucose [Mass/Vol] 73 mg/dL Normal 65-99 [facility] Comment on above: Performed By: #### E LEC #### [facility] ([id number]) [address], [address] [place] [address] Potassium [Moles/Vol] 5.0 mmol/L Normal 3.5-5.0 [facility] Comment on above: Performed By: #### E LEC #### [facility] ([id number]) [address], [address] [place] [address] Protein [Mass/Vol] 6.2 g/dL Normal 6.0-8.0 [facility] Comment on above: Performed By: #### E LEC #### [facility] ([id number]) [address], [address] [place] [address] Sodium [Moles/Vol] 138 mmol/L Normal 134-146 [facility] Comment on above: Performed By: #### E LEC #### [facility] ([id number]) [address], [address] [place] [address] Urea nitrogen [Mass/Vol] 44 mg/dL High 5-[address] [facility] Comment on above: Performed By: #### E LEC #### [facility] ([id number]) [address], [address] [place] [address] Creatinine (U) [Mass/Vol]on 02-25-2024 URINE CREATININE,RDM 57.71 mg/dL Normal [facility] Comment on above: Performed By: #### E LEC #### [facility] ([id number]) [address], [address] [place] [address] MAGNESIUMon 02-25-2024 Magnesium [Mass/Vol] 1.9 mg/dL Normal 1.8-2.6 [facility] Comment on above: Performed By: #### E LEC #### [facility] ([id number]) [address], [address] [place] [address] Osmolality (U) [Osmolality]o n 02-25-2024 URINE OSMOLALITY 631 mOsm/kg H2 Normal 300-1300 [facility] Comment on above: Performed By: #### E LEC #### [facility] ([id number]) [address], [address] [place] [address] PHOSPHORUSon 02-25-2024 Phosphate [Mass/Vol] 5.9 mg/dL High 2.4-4.9 [facility] Comment on above: Result Comment: SPEC IMEN HEMOLYZED, RESULTS INCREASED SLIGHTLY HEMOLYZED Performed By: #### E LEC #### [facility] ([id number]) [address], [address] [place] [address] Provider Letteron 02-25-2024 Provider Letter (Inserted Image. Sahra ble to display) February 25, 2024 GERA PERDUE [address] [place] [address] : 1945 Dear Gera Perdue , We [...] Sincerely, [facility] option #3 Normal [facility] URINE SODIUM,RANDOMon 2023 Sodium (U) [Moles/Vol] 119 mmol/L Normal Pr [facility] Comment on above: Performed By: #### E LEC #### [facility] ([id number]) [address], [address] [place] [address] AFB CULTURE(CONCENTRATED)on 02-24-2024 Mycobacterium sp identified Org specific cx Nom (Unsp spec) SPECIMEN NOTES SPECIMEN 2 AFB SMEAR NO ACID FAST BACILLI (CONCENTRATED SMEAR) CULTURE RESULTS NO ACID FAST BACILLI ISOLATED IN [address] [facility] Comment on above: Performed By: #### E LEC #### [facility] ([id number]) [address], [address] [place] [address] Mycobacterium sp identified Org specific cx Nom (Unsp spec) SPECIMEN NOTES SPECIMEN 1 AFB SMEAR NO ACID FAST BACILLI (CONCENTRATED SMEAR) CULTURE RESULTS NO ACID FAST BACILLI ISOLATED IN 8 WEEKS [address] [facility] Comment on above: Performed By: #### E LEC #### [facility] ([id number]) [address], [address] [place] [address] AND DIFFon 2023 BODY FLUID COMMENT Interpreta tion-- ------ Normal [facility] Comment on above: Result Comment: Refe rence values for this fluid type are undefined, as fluid accumulation is considered abnormal. Performed By: #### E LEC #### [facility] ([id number]) [address], [address] [place] [address] FLUID CLARITY HAZY Normal [facility] Comment on above: Performed By: #### E LEC #### [facility] ([id number]) [address], [address] [place] [address] FLUID COLOR COLORLESS Normal [facility] Comment on above: Performed By: #### E LEC #### [facility] ([id number]) [address], [address] [place] [address] FLUID LYMPHOCYTE 6 % Normal [facility] Comment on above: Performed By: #### E LEC #### [facility] ([id number]) [address], [address] [place] [address] FLUID NEUTROPHILS 69 % Normal [facility] Comment on above: Performed By: #### E LEC #### [facility] ([id number]) [address], [address] [place] [address] 34 /uL Normal [facility] Comment on above: Performed By: #### E LEC #### [facility] ([id number]) [address], [address] [place] [address] FLUID SPECIMEN TYPE BRONCHOALVEOLAR LAVAGE Normal [facility] Comment on above: Result Comment: RIGH T LUNG, LOWER LOBE SPECIMEN 2 Performed By: #### E LEC #### [facility] ([id number]) [address] [address] [place] [address] MACROPHAGES 25 % Normal [facility] Comment on above: Performed By: #### E LEC #### [facility] ([id number]) [address], [address] [place] [address] 440 /uL Normal [facility] Comment on above: Performed By: #### E LEC #### [facility] ([id number]) [address] [address] [place] [address] CBC AND AUTO DIFFon 02-24-20 Erythrocyte distribution width (RBC) [Ratio] 18.3 % High 11.5-15.[address] [facility] Comment on above: Performed By: #### E LEC #### [facility] ([id number]) [address], [address] [place] [address] Hematocrit (Bld) [Volume fraction] 34.7 % Low 35-[address] [facility] Comment on above: Performed By: #### E LEC #### [facility] ([id number]) [address], [address] [place] [address] Hemoglobin (Bld) [Mass/Vol] 11.2 g/dL Low 11.7-15.[address] [facility] Comment on above: Performed By: #### E LEC #### [facility] ([id number]) [address] [address] [place] [address] Lymphocytes (Bld) [#/Vol] 2.8 10*3/uL Normal 1.0-3.[address] [facility] Comment on above: Performed By: #### E LEC #### [facility] ([id number]) [address], [address] [place] [address] Lymphocytes/100 WBC (Bld) 17.0 % Normal [facility] Comment on above: Performed By: #### E LEC #### [facility] ([id number]) [address], [address] [place] [address] MCH (RBC) [Entitic mass] 24.6 pg Low 27-[address] [facility] Comment on above: Performed By: #### E LEC #### [facility] ([id number]) [address], [address] [place] [address] MCHC (RBC) [Mass/Vol] 32.1 g/dL Normal 32-36 [facility] Comment on above: Performed By: #### E LEC #### [facility] ([id number]) [address], [address] [place] [address] MCV (RBC) [Entitic vol] 77 fL Low 80-[address] [facility] Comment on above: Performed By: #### E LEC #### [facility] ([id number]) [address], [address] [place] [address] Metamyelocytes/100 WBC (Bld) 1.0 % Normal [facility] Comment on above: Performed By: #### E LEC #### [facility] ([id number]) [address], [address] [place] [address] Monocytes (Bld) [#/Vol] 0.7 10*3/uL Normal 0-0.[address] [facility] Comment on above: Performed By: #### E LEC #### [facility] ([id number]) [address], [address] [place] [address] Monocytes/100 WBC (Bld) 4.0 % Normal [facility] Comment on above: Performed By: #### E LEC #### [facility] ([id number]) [address], [address] [place] [address] Neutrophils (Bld) [#/Vol] 12.7 10*3/uL High 1.5-6.[address] [facility] Comment on above: Performed By: #### E LEC #### [facility] ([id number]) [address], [address] [place] [address] Platelet mean volume (Bld) [Entitic vol] 6.7 fL Low 7-[address] [facility] Comment on above: Performed By: #### E LEC #### [facility] ([id number]) [address], [address] [place] [address] Platelets (Bld) [#/Vol] 479 10*3/uL High 150-[address] [facility] Comment on above: Performed By: #### E LEC #### [facility] ([id number]) [address], [address] [place] [address] RBC COUNT 4.54 X10E12/L Normal 3.80-5.[address] [facility] Comment on above: Performed By: #### E LEC #### [facility] ([id number]) [address], [address] [place] [address] RBC morphology finding Nom (Bld) NORMAL Normal [facility] Comment on above: Performed By: #### E LEC #### [facility] ([id number]) [address], [address] [place] [address] SEG NEUTROPHIL 78.0 % Normal [facility] Comment on above: Performed By: #### E LEC #### [facility] ([id number]) [address], [address] [place] [address] WBC (Bld) [#/Vol] 16.4 10*3/uL High 4.0-11.0 [facility] Comment on above: Performed By: #### E LEC #### [facility] ([id number]) [address], [address] [place] [address] COMPREHENSIVE METABOLIC PANE Harsha 04-29-2024 Albumin [Mass/Vol] 2.8 g/dL Low 3.2-5.3 [facility] Comment on above: Performed By: #### E LEC #### [facility] ([id number]) [address], [address] [place] [address] ALP [Catalytic activity/Vol] 63 U/L Normal 39-[address] [facility] Comment on above: Performed By: #### E LEC #### [facility] ([id number]) [address], [address] [place] [address] ALT [Catalytic activity/Vol] 11 U/L Normal 0-[address] [facility] Comment on above: Performed By: #### E LEC #### [facility] ([id number]) [address], [address] [place] [address] Anion gap [Moles/Vol] 6 mmol/L Normal 5-15 [facility] Comment on above: Performed By: #### E LEC #### [facility] ([id number]) [address], [address] [place] [address] AST [Catalytic activity/Vol] 12 U/L Normal 0-[address] [facility] Comment on above: Performed By: #### E LEC #### [facility] ([id number]) [address], [address] [place] [address] Bilirubin [Mass/Vol] 0.2 mg/dL Low 0.3-1.2 [facility] Comment on above: Performed By: #### E LEC #### [facility] ([id number]) [address], [address] [place] [address] Calcium [Mass/Vol] 9.1 mg/dL Normal 8.5-10.5 [facility] Comment on above: Performed By: #### E LEC #### [facility] ([id number]) [address], [address] [place] [address] Chloride [Moles/Vol] 101 mmol/L Normal 98-109 [facility] Comment on above: Performed By: #### E LEC #### [facility] ([id number]) [address], [address] [place] [address] CO2 [Moles/Vol] 31 mmol/L Normal 22-[address] [facility] Comment on above: Performed By: #### E LEC #### [facility] ([id number]) [address], [address] [place] [address] Creatinine [Mass/Vol] 1.05 mg/dL High 0.40-1.00 [facility] Comment on above: Result Comment: METH OD TRACEABLE TO IDMS STANDARD Performed By: #### E LEC #### [facility] ([id number]) [address], [address] [place] [address] GFR/1.73 sq M.predicted among non-blacks MDRD (S/P/Bld) [Vol rate/Area] 54 mL/min/{1.73_m2} Low >[address] [facility] Comment on above: Result Comment: Reported eGFR is based on the CKD-EPI 2020 equation that does not use a race coefficient. Performed By: #### E LEC #### [facility] ([id number]) [address], [address] [place] [address] Glucose [Mass/Vol] 91 mg/dL Normal 65-99 [facility] Comment on above: Performed By: #### E LEC #### [facility] ([id number]) [address] [address] [place] [address] Potassium [Moles/Vol] 4.5 mmol/L Normal 3.5-5.0 [facility] Comment on above: Performed By: #### E LEC #### [facility] ([id number]) [address], [address] [place] [address] Protein [Mass/Vol] 6.2 g/dL Normal 6.0-8.0 [facility] Comment on above: Performed By: #### E LEC #### [facility] ([id number]) [address] [place] [address], [facility] [address] [place] [address] Sodium [Moles/Vol] 138 mmol/L Normal 134-146 [facility] Comment on above: Performed By: #### E LEC #### [facility] ([id number]) [address] [place] [address] [address] [place] [address] Urea nitrogen [Mass/Vol] 33 mg/dL High 5-[address] [facility] Comment on above: Performed By: #### E LEC #### [facility] ([id number]) [address] [place] [address] Cytologyon 02-24-2024 Cytology Normal [facility] Comment on above: Result Comment: [facility] [employer] [facility] [address] [place] [address] Cytology Consultation Patient Name:JEAN PERDUE:1945 (Age: 78)Gender:FTaken:4Reported:02/27/2024 16:56Physician(s):Elsa Quinonez MD ([phone])Copy To:Noe Huang [facility]:[id number]. Rec. #:[id number]: #[id number] Final Cytologic Diagnosis 1. Right lower lobe, bronchial washing: No malignant cells identified. 2. Right lower lobe, bronchoalveolar lavage: No malignant cells identified. nxk/02/27/2024 Interpretation performed at [facility] [place] [address], License number: [id number].Electronically Signed Out By Agustin Darling MD Clinical [...] lower lobe, bronchial washing Cell block for Non-splunk architect (M), Level 2 H&E, Non MORGUE TECHNICIAN ThinPrep 2: Right lower lobe, bronchoalveolar lavage Cell block for Non-splunk architect (M), Level 2 H&E, Non MORGUE TECHNICIAN ThinPrep Fee Code(s): 1; 41007, 55135 2; 88022, 63449 FUNGAL CULTUREon 02-24-2024 Fungus identified Cx Nom (Unsp spec) SPECIMEN NOTES SPECIMEN 2 FUNGAL SMEAR NO FUNGAL ELEMENTS SEEN ON CONCENTRATED SMEAR CULTURE RESULTS NO FUNGUS ISOLATED AFTER 4 WEEKS [facility] Comment on above: Performed By: #### E LEC #### [facility] ([id number]) [address] [facility], [address] [place] [address] Fungus identified Cx Nom (Unsp spec) SPECIMEN NOTES SPECIMEN 1 FUNGAL SMEAR NO FUNGAL ELEMENTS SEEN ON CONCENTRATED SMEAR CULTURE RESULTS NO FUNGUS ISOLATED AFTER 4 WEEKS [facility] Comment on above: Performed By: #### E LEC #### [facility] ([id number]) [address] [place] [address] LOWER RESPIRATORY CULTUREon 02-24-2024 Bacteria identified Respiratory culture Nom (Sput) SPECIMEN NOTES SPECIMEN 2 GRAM STAIN 1 to 9 WHITE BLOOD CELLS/LPF 1 to 9 SQUAMOUS EPITHELIAL CELLS/LPF 0 CILIATED EPITHELIAL CELLS/LPF NO ORGANISMS SEEN CULTURE RESULTS RARE NORMAL ORAL KIMBERLY Normal [facility] Comment on above: Performed By: #### E LEC #### [facility] ([id number]) [address] [place] [address] Bacteria identified Respiratory culture Nom (Sput) SPECIMEN NOTES SPECIMEN 1 GRAM STAIN 1 to 9 WHITE BLOOD CELLS/LPF 1 to 9 SQUAMOUS EPITHELIAL CELLS/LPF 0 CILIATED EPITHELIAL CELLS/LPF NO ORGANISMS SEEN CULTURE RESULTS RARE NORMAL ORAL KIMBERLY Normal [facility] Comment on above: Performed By: #### E LEC #### [facility] ([id number]) [address] [place] [address], [address] [place] [address] M. pneumoniae DNA ELIZABETH+probe Ql (Unsp spec)on 02-24-2024 M PNEUMONIAE DNA PCR See Below Normal [facility] Comment on above: Result Comment: NOTE [...] developed and its performance characteristics determined by [facility]. It has not been cleared or approved by the [place] Food and Drug Administration. This test was performed in a CLIA certified laboratory and is intended for clinical purposes. Performed By: [facility] [address] [place] [address] Working Supervisor: Eduardo Lindsay MD, PhD [place] Number: [id number] SOURCE: Sputum Performed By: #### E LEC #### [facility] ([id number]) [address] [place] [address], [facility] [address] [place] [address] MAGNESIUMon 02-24-2024 Magnesium [Mass/Vol] 2.1 mg/dL Normal 1.8-2.6 [facility] Comment on above: Performed By: #### E LEC #### [facility] ([id number]) [address] [place] [address], [address] [place] [address] PHOSPHORUSon 02-24-2024 Phosphate [Mass/Vol] 4.6 mg/dL Normal 2.4-4.9 [facility] Comment on above: Performed By: #### E LEC #### [facility] ([id number]) [address], [address] [place] [address] Procalcitonin IA [Mass/Vol]o n 02-24-2024 PROCALCITONIN <0.05 Normal <0.[address] [facility] Comment on above: Result Comment: NOTE <0.50 ng/mL - Low risk of severe sepsis and/or septic shock. <2.00 ng/mL - Recommend retesting within 6-24 hours. >2.00 ng/mL - High risk of sepsis and/or septic shock. Performed By: #### E LEC #### [facility] ([id number]) [address] [address] CBC AND AUTO DIFFon 02-23-20 24 Band form neutrophils/100 WBC (Bld) 1.0 % Normal [facility] Comment on above: Performed By: #### E LEC #### [facility] ([id number]) [address] [address] Erythrocyte distribution width (RBC) [Ratio] 18.2 % High 11.5-15.[address] [facility] Comment on above: Performed By: #### E LEC #### [facility] ([id number]) [address] [address] [place] [address] Hematocrit (Bld) [Volume fraction] 35.2 % Normal 35-[address] [facility] Comment on above: Performed By: #### E LEC #### [facility] ([id number]) [address] [address] [place] [address] Hemoglobin (Bld) [Mass/Vol] 11.3 g/dL Low 11.7-15.[address] [facility] Comment on above: Performed By: #### E LEC #### [facility] ([id number]) [address], [address] [address] HYPOCHROMIA 2+ Abnormal NONE [facility] Comment on above: Performed By: #### E LEC #### [facility] ([id number]) [address], [address] [place] [address] Lymphocytes (Bld) [#/Vol] 2.6 10*3/uL Normal 1.0-3.[address] [facility] Comment on above: Performed By: #### E LEC #### [facility] ([id number]) [address], [address] [place] [address] Lymphocytes/100 WBC (Bld) 16.0 % Normal [facility] Comment on above: Performed By: #### E LEC #### [facility] ([id number]) [address], [address] [place] [address] MCH (RBC) [Entitic mass] 24.8 pg Low 27-[address] [facility] Comment on above: Performed By: #### E LEC #### [facility] ([id number]) [address], [address] [place] [address] MCHC (RBC) [Mass/Vol] 32.2 g/dL Normal 32-36 [facility] Comment on above: Performed By: #### E LEC #### [facility] ([id number]) [address], [address] [place] [address] MCV (RBC) [Entitic vol] 77 fL Low 80-[address] [facility] Comment on above: Performed By: #### E LEC #### [facility] ([id number]) [address], [address] [place] [address] Monocytes (Bld) [#/Vol] 1.0 10*3/uL High 0-0.[address] [facility] Comment on above: Performed By: #### E LEC #### [facility] ([id number]) [address], [address] [place] [address] Monocytes/100 WBC (Bld) 6.0 % Normal [facility] Comment on above: Performed By: #### E LEC #### [facility] ([id number]) [address] [place] [address] MYELOCYTE 3.0 % Normal [facility] Comment on above: Performed By: #### E LEC #### [facility] ([id number]) [address], [address] [place] [address] Neutrophils (Bld) [#/Vol] 12.2 10*3/uL High 1.5-6.[address] [facility] Comment on above: Performed By: #### E LEC #### [facility] ([id number]) [address], [address] [place] [address] Platelet mean volume (Bld) [Entitic vol] 6.7 fL Low 7-[address] [facility] Comment on above: Performed By: #### E LEC #### [facility] ([id number]) [address], [address] [place] [address] Platelets (Bld) [#/Vol] 493 10*3/uL High 150-[address] [facility] Comment on above: Performed By: #### E LEC #### [facility] ([id number]) [address], [address] [place] [address] RBC COUNT 4.57 X10E12/L Normal 3.80-5.[address] [facility] Comment on above: Performed By: #### E LEC #### [facility] ([id number]) [address], [address] [place] [address] SEG NEUTROPHIL 74.0 % Normal [facility] Comment on above: Performed By: #### E LEC #### [facility] ([id number]) [address], [address] [place] [address] WBC (Bld) [#/Vol] 16.3 10*3/uL High 4.0-11.0 [facility] Comment on above: Performed By: #### E LEC #### [facility] ([id number]) [address], [address] [place] [address] CK [Catalytic activity/Vol]o n 02-23-2024 CPK <10 Low 24-[address] [facility] Comment on above: Performed By: #### E LEC #### [facility] ([id number]) [address], [address] [place] [address] COMPREHENSIVE METABOLIC PANE Harsha 02-23-2024 Albumin [Mass/Vol] 2.9 g/dL Low 3.2-5.3 [facility] Comment on above: Performed By: #### E LEC #### [facility] ([id number]) [address], [address] [place] [address] ALP [Catalytic activity/Vol] 69 U/L Normal 39-[address] [facility] Comment on above: Performed By: #### E LEC #### [facility] ([id number]) [address], [address] [place] [address] ALT [Catalytic activity/Vol] 7 U/L Normal 0-[address] [facility] Comment on above: Performed By: #### E LEC #### [facility] ([id number]) [address], [address] [place] [address] Anion gap [Moles/Vol] 7 mmol/L Normal 5-15 [facility] Comment on above: Performed By: #### E LEC #### [facility] ([id number]) [address], [address] [place] [address] AST [Catalytic activity/Vol] 11 U/L Normal 0-[address] [facility] Comment on above: Performed By: #### E LEC #### [facility] ([id number]) [address], [address] [place] [address] Bilirubin [Mass/Vol] 0.2 mg/dL Low 0.3-1.2 [facility] Comment on above: Performed By: #### E LEC #### [facility] ([id number]) [address], [address] [place] [address] Calcium [Mass/Vol] 9.4 mg/dL Normal 8.5-10.5 [facility] Comment on above: Performed By: #### E LEC #### [facility] ([id number]) [address] [address] [place] [address] Chloride [Moles/Vol] 103 mmol/L Normal 98-109 [facility] Comment on above: Performed By: #### E LEC #### [facility] ([id number]) [address] [address] [place] [address] CO2 [Moles/Vol] 31 mmol/L Normal 22-[address] [facility] Comment on above: Performed By: #### E LEC #### [facility] ([id number]) [address] [address] [place] [address] Creatinine [Mass/Vol] 0.97 mg/dL Normal 0.40-1.00 [facility] Comment on above: Result Comment: METH OD TRACEABLE TO IDMS STANDARD Performed By: #### E LEC #### [facility] ([id number]) [address] [address] [place] [address] GFR/1.73 sq M.predicted among non-blacks MDRD (S/P/Bld) [Vol rate/Area] 60 mL/min/{1.73_m2} Normal >[address] [facility] Comment on above: Result Comment: Reported eGFR is based on the CKD-EPI 2020 equation that does not use a race coefficient. Performed By: #### E LEC #### [facility] ([id number]) [address] [address] [place] [address] Glucose [Mass/Vol] 86 mg/dL Normal 65-99 [facility] Comment on above: Performed By: #### E LEC #### [facility] ([id number]) [address], [address] [place] [address] Potassium [Moles/Vol] 4.6 mmol/L Normal 3.5-5.0 [facility] Comment on above: Performed By: #### E LEC #### [facility] ([id number]) [address], [address] [place] [address] Protein [Mass/Vol] 6.6 g/dL Normal 6.0-8.0 [facility] Comment on above: Performed By: #### E LEC #### [facility] ([id number]) [address], [address] [place] [address] Sodium [Moles/Vol] 141 mmol/L Normal 134-146 [facility] Comment on above: Performed By: #### E LEC #### [facility] ([id number]) [address], [address] [place] [address] Urea nitrogen [Mass/Vol] 31 mg/dL High 5-[address] [facility] Comment on above: Performed By: #### E LEC #### [facility] ([id number]) [address], [address] [place] [address] FL SWALLOW MOTILITY FUNCTION on 02-23-2024 FL [...] León Parikh on 02/23/2024 8:44 AM Normal [facility] MAGNESIUMon 02-23-2024 Magnesium [Mass/Vol] 1.7 mg/dL Low 1.8-2.6 [facility] Comment on above: Performed By: #### E LEC #### [facility] ([id number]) [address], [address] [place] [address] PHOSPHORUSon 02-23-2024 Phosphate [Mass/Vol] 3.8 mg/dL Normal 2.4-4.9 [facility] Comment on above: Performed By: #### E LEC #### [facility] ([id number]) [address], [address] [place] [address] CBC AND AUTO DIFFon 02-22-20 Erythrocyte distribution width (RBC) [Ratio] 18.6 % High 11.5-15.[address] [facility] Comment on above: Performed By: #### E LEC #### [facility] ([id number]) [address], [address] [place] [address] Hematocrit (Bld) [Volume fraction] 34.2 % Low 35-[address] [facility] Comment on above: Performed By: #### E LEC #### [facility] ([id number]) [address], [address] [place] [address] Hemoglobin (Bld) [Mass/Vol] 11.0 g/dL Low 11.7-15.[address] [facility] Comment on above: Performed By: #### E LEC #### [facility] ([id number]) [address], [address] [place] [address] HYPOCHROMIA 2+ Abnormal NONE [facility] Comment on above: Performed By: #### E LEC #### [facility] ([id number]) [address], [address] [place] [address] Lymphocytes (Bld) [#/Vol] 2.6 10*3/uL Normal 1.0-3.[address] [facility] Comment on above: Performed By: #### E LEC #### [facility] ([id number]) [address], [address] [place] [address] Lymphocytes/100 WBC (Bld) 17.0 % Normal [facility] Comment on above: Performed By: #### E LEC #### [facility] ([id number]) [address], [address] [place] [address] MCH (RBC) [Entitic mass] 24.5 pg Low 27-[address] [facility] Comment on above: Performed By: #### E LEC #### [facility] ([id number]) [address], [address] [place] [address] MCHC (RBC) [Mass/Vol] 32.0 g/dL Normal 32-36 [facility] Comment on above: Performed By: #### E LEC #### [facility] ([id number]) [address], [address] [place] [address] MCV (RBC) [Entitic vol] 76 fL Low 80-[address] [facility] Comment on above: Performed By: #### E LEC #### [facility] ([id number]) [address], [address] [place] [address] Monocytes (Bld) [#/Vol] 0.6 10*3/uL Normal 0-0.[address] [facility] Comment on above: Performed By: #### E LEC #### [facility] ([id number]) [address], [address] [place] [address] Monocytes/100 WBC (Bld) 4.0 % Normal [facility] Comment on above: Performed By: #### E LEC #### [facility] ([id number]) [address], [address] [place] [address] Neutrophils (Bld) [#/Vol] 12.0 10*3/uL High 1.5-6.[address] [facility] Comment on above: Performed By: #### E LEC #### [facility] ([id number]) [address], [address] [place] [address] Platelet mean volume (Bld) [Entitic vol] 6.6 fL Low 7-[address] [facility] Comment on above: Performed By: #### E LEC #### [facility] ([id number]) [address], [address] [place] [address] Platelets (Bld) [#/Vol] 444 10*3/uL Normal 150-[address] [facility] Comment on above: Performed By: #### E LEC #### [facility] ([id number]) [address], [address] [place] [address] RBC COUNT 4.47 X10E12/L Normal 3.80-5.[address] [facility] Comment on above: Performed By: #### E LEC #### [facility] ([id number]) [address], [address] [place] [address] SEG NEUTROPHIL 79.0 % Normal [facility] Comment on above: Performed By: #### E LEC #### [facility] ([id number]) [address], [address] [place] [address] WBC (Bld) [#/Vol] 15.2 10*3/uL High 4.0-11.0 [facility] Comment on above: Performed By: #### E LEC #### [facility] ([id number]) [address], [address] [place] [address] COMPREHENSIVE METABOLIC PANE Harsha 02-22-2024 Albumin [Mass/Vol] 2.9 g/dL Low 3.2-5.3 [facility] Comment on above: Performed By: #### E LEC #### [facility] ([id number]) [address], [address] [place] [address] ALP [Catalytic activity/Vol] 80 U/L Normal 39-[address] [facility] Comment on above: Performed By: #### E LEC #### [facility] ([id number]) [address], [address] [place] [address] ALT [Catalytic activity/Vol] 9 U/L Normal 0-[address] [facility] Comment on above: Performed By: #### E LEC #### [facility] ([id number]) [address], [address] [place] [address] Anion gap [Moles/Vol] 8 mmol/L Normal 5-15 [facility] Comment on above: Performed By: #### E LEC #### [facility] ([id number]) [address], [address] [place] [address] AST [Catalytic activity/Vol] 12 U/L Normal 0-[address] [facility] Comment on above: Performed By: #### E LEC #### [facility] ([id number]) [address], [address] [place] [address] Bilirubin [Mass/Vol] 0.2 mg/dL Low 0.3-1.2 [facility] Comment on above: Performed By: #### E LEC #### [facility] ([id number]) [address], [address] [place] [address] Calcium [Mass/Vol] 9.2 mg/dL Normal 8.5-10.5 [facility] Comment on above: Performed By: #### E LEC #### [facility] ([id number]) [address], [address] [place] [address] Chloride [Moles/Vol] 103 mmol/L Normal 98-109 [facility] Comment on above: Performed By: #### E LEC #### [facility] ([id number]) [address], [address] [place] [address] CO2 [Moles/Vol] 32 mmol/L Normal 22-[address] [facility] Comment on above: Performed By: #### E LEC #### [facility] ([id number]) [address] [place] [address] Creatinine [Mass/Vol] 0.94 mg/dL Normal 0.40-1.00 [facility] Comment on above: Result Comment: METH OD TRACEABLE TO IDMS STANDARD Performed By: #### E LEC #### [facility] ([id number]) [address], [address] [place] [address] GFR/1.73 sq M.predicted among non-blacks MDRD (S/P/Bld) [Vol rate/Area] 62 mL/min/{1.73_m2} Normal >[address] [facility] Comment on above: Result Comment: Reported eGFR is based on the CKD-EPI 2020 equation that does not use a race coefficient. Performed By: #### E LEC #### [facility] ([id number]) [address], [address] [place] [address] Glucose [Mass/Vol] 128 mg/dL High 65-99 [facility] Comment on above: Performed By: #### E LEC #### [facility] ([id number]) [address], [address] [place] [address] Potassium [Moles/Vol] 4.2 mmol/L Normal 3.5-5.0 [facility] Comment on above: Performed By: #### E LEC #### [facility] ([id number]) [address], [address] [place] [address] Protein [Mass/Vol] 6.9 g/dL Normal 6.0-8.0 [facility] Comment on above: Performed By: #### E LEC #### [facility] ([id number]) [address], [address] [place] [address] Sodium [Moles/Vol] 143 mmol/L Normal 134-146 [facility] Comment on above: Performed By: #### E LEC #### [facility] ([id number]) [address], [address] [place] [address] Urea nitrogen [Mass/Vol] 29 mg/dL High 5-[address] [facility] Comment on above: Performed By: #### E LEC #### [facility] ([id number]) [address], [address] [place] [address] MAGNESIUMon 02-22-2024 Magnesium [Mass/Vol] 2.0 mg/dL Normal 1.8-2.6 [facility] Comment on above: Performed By: #### E LEC #### [facility] ([id number]) [address], [address] [place] [address] PHOSPHORUSon 02-22-2024 Phosphate [Mass/Vol] 3.3 mg/dL Normal 2.4-4.9 [facility] Comment on above: Performed By: #### E LEC #### [facility] ([id number]) [address], [address] [place] [address] C DIFFICILE BY PCRon 024 C. difficile toxin genes ELIZABETH+probe Ql (Stl) TOXIGENIC C DIFF Negative (qualifier value) 027 NAP1 Negative (qualifier value) Normal PRNEG [facility] Comment on above: Performed By: #### E LEC #### [facility] ([id number]) [address], [address] [place] [address] CBC AND AUTO DIFFon 02-21-20 24 ABSOLUTE BASOPHIL 0.0 X10E9/L Normal 0.0-0.2 [facility] Comment on above: Performed By: #### E LEC #### [facility] ([id number]) [address], [address] [place] [address] ABSOLUTE NEUTROPHIL 10.9 X10E9/L High 1.5-6.6 [facility] Comment on above: Performed By: #### E LEC #### [facility] ([id number]) [address], [address] [place] [address] Basophils/100 WBC (Bld) 0.2 % Normal [facility] Comment on above: Performed By: #### E LEC #### [facility] ([id number]) [address], [address] [place] [address] Eosinophils (Bld) [#/Vol] 0.0 10*3/uL Normal 0.0-0.[address] [facility] Comment on above: Performed By: #### E LEC #### [facility] ([id number]) [address], [address] [place] [address] Eosinophils/100 WBC (Bld) 0.0 % Normal [facility] Comment on above: Performed By: #### E LEC #### [facility] ([id number]) [address], [address] [place] [address] Erythrocyte distribution width (RBC) [Ratio] 18.0 % High 11.5-15.[address] [facility] Comment on above: Performed By: #### E LEC #### [facility] ([id number]) [address], [address] [place] [address] Hematocrit (Bld) [Volume fraction] 32.3 % Low 35-[address] [facility] Comment on above: Performed By: #### E LEC #### [facility] ([id number]) [address], [address] [place] [address] Hemoglobin (Bld) [Mass/Vol] 10.5 g/dL Low 11.7-15.[address] [facility] Comment on above: Performed By: #### E LEC #### [facility] ([id number]) [address], [address] [place] [address] Lymphocytes (Bld) [#/Vol] 2.1 10*3/uL Normal 1.0-3.[address] [facility] Comment on above: Performed By: #### E LEC #### [facility] ([id number]) [address], [address] [place] [address] Lymphocytes/100 WBC (Bld) 14.7 % Normal [facility] Comment on above: Performed By: #### E LEC #### [facility] ([id number]) [address], [address] [place] [address] MCH (RBC) [Entitic mass] 24.6 pg Low 27-[address] [facility] Comment on above: Performed By: #### E LEC #### [facility] ([id number]) [address], [address] [place] [address] MCHC (RBC) [Mass/Vol] 32.5 g/dL Normal 32-36 [facility] Comment on above: Performed By: #### E LEC #### [facility] ([id number]) [address], [address] [place] [address] MCV (RBC) [Entitic vol] 76 fL Low 80-[address] [facility] Comment on above: Performed By: #### E LEC #### [facility] ([id number]) [address], [address] [place] [address] Monocytes (Bld) [#/Vol] 1.3 10*3/uL High 0-0.[address] [facility] Comment on above: Performed By: #### E LEC #### [facility] ([id number]) [address], [address] [place] [address] Monocytes/100 WBC (Bld) 9.2 % Normal [facility] Comment on above: Performed By: #### E LEC #### [facility] ([id number]) [address], [address] [place] [address] Neutrophils/100 WBC (Bld) 75.9 % Normal [facility] Comment on above: Performed By: #### E LEC #### [facility] ([id number]) [address], [address] [place] [address] Platelet mean volume (Bld) [Entitic vol] 6.7 fL Low 7-[address] [facility] Comment on above: Performed By: #### E LEC #### [facility] ([id number]) [address], [address] [place] [address] Platelets (Bld) [#/Vol] 448 10*3/uL Normal 150-[address] [facility] Comment on above: Performed By: #### E LEC #### [facility] ([id number]) [address], [address] [place] [address] RBC COUNT 4.27 X10E12/L Normal 3.80-5.[address] [facility] Comment on above: Performed By: #### E LEC #### [facility] ([id number]) [address], [address] [place] [address] WBC (Bld) [#/Vol] 14.4 10*3/uL High 4.0-11.0 [facility] Comment on above: Performed By: #### E LEC #### [facility] ([id number]) [address], [address] [place] [address] COMPREHENSIVE METABOLIC PANE Harsha 02-21-2024 Albumin [Mass/Vol] 2.9 g/dL Low 3.2-5.3 [facility] Comment on above: Performed By: #### E LEC #### [facility] ([id number]) [address], [address] [place] [address] ALP [Catalytic activity/Vol] 81 U/L Normal 39-[address] [facility] Comment on above: Performed By: #### E LEC #### [facility] ([id number]) [address] [place] [address] ALT [Catalytic activity/Vol] 4 U/L Normal 0-[address] [facility] Comment on above: Performed By: #### E LEC #### [facility] ([id number]) [address], [address] [place] [address] Anion gap [Moles/Vol] 7 mmol/L Normal 5-15 [facility] Comment on above: Performed By: #### E LEC #### [facility] ([id number]) [address], [address] [place] [address] AST [Catalytic activity/Vol] 9 U/L Normal 0-[address] [facility] Comment on above: Performed By: #### E LEC #### [facility] ([id number]) [address] [place] [address] Bilirubin [Mass/Vol] 0.2 mg/dL Low 0.3-1.2 [facility] Comment on above: Performed By: #### E LEC #### [facility] ([id number]) [address], [address] [place] [address] Calcium [Mass/Vol] 8.9 mg/dL Normal 8.5-10.5 [facility] Comment on above: Performed By: #### E LEC #### [facility] ([id number]) [address], [address] [place] [address] Chloride [Moles/Vol] 102 mmol/L Normal 98-109 [facility] Comment on above: Performed By: #### E LEC #### [facility] ([id number]) [address], [address] [place] [address] CO2 [Moles/Vol] 34 mmol/L High 22-[address] [facility] Comment on above: Performed By: #### E LEC #### [facility] ([id number]) [address] [place] [address] Creatinine [Mass/Vol] 1.09 mg/dL High 0.40-1.00 [facility] Comment on above: Result Comment: METH OD TRACEABLE TO IDMS STANDARD Performed By: #### E LEC #### [facility] ([id number]) [address], [address] [place] [address] GFR/1.73 sq M.predicted among non-blacks MDRD (S/P/Bld) [Vol rate/Area] 52 mL/min/{1.73_m2} Low >[address] [facility] Comment on above: Result Comment: Reported eGFR is based on the CKD-EPI 2020 equation that does not use a race coefficient. Performed By: #### E LEC #### [facility] ([id number]) [address], [address] [place] [address] Glucose [Mass/Vol] 150 mg/dL High 65-99 [facility] Comment on above: Performed By: #### E LEC #### [facility] ([id number]) [address], [address] [place] [address] Potassium [Moles/Vol] 4.0 mmol/L Normal 3.5-5.0 [facility] Comment on above: Performed By: #### E LEC #### [facility] ([id number]) [address], [address] [place] [address] Protein [Mass/Vol] 6.8 g/dL Normal 6.0-8.0 [facility] Comment on above: Performed By: #### E LEC #### [facility] ([id number]) [address], [address] [place] [address] Sodium [Moles/Vol] 143 mmol/L Normal 134-146 [facility] Comment on above: Performed By: #### E LEC #### [facility] ([id number]) [address] [place] [address] Urea nitrogen [Mass/Vol] 25 mg/dL Normal 5-[address] [facility] Comment on above: Performed By: #### E LEC #### [facility] ([id number]) [address] [address] GI PANELon 02-21-2024 Gastrointestinal pathogens DNA and [...] SAPOVIRUS Not detected (qualifier value) Normal NDET [facility] Comment on above: Performed By: #### E LEC #### [facility] ([id number]) [address], [address] [place] [address] MAGNESIUMon 02-21-2024 Magnesium [Mass/Vol] 2.4 mg/dL Normal 1.8-2.6 [facility] Comment on above: Performed By: #### E LEC #### [facility] ([id number]) [address], [address] [place] [address] PHOSPHORUSon 02-21-2024 Phosphate [Mass/Vol] 3.7 mg/dL Normal 2.4-4.9 [facility] Comment on above: Performed By: #### E LEC #### [facility] ([id number]) [address], [address] [place] [address] CBC AND AUTO DIFFon 02-20-20 ABSOLUTE BASOPHIL 0.0 X10E9/L Normal 0.0-0.2 [facility] Comment on above: Performed By: #### E LEC #### [facility] ([id number]) [address], [address] [place] [address] ABSOLUTE NEUTROPHIL 10.4 X10E9/L High 1.5-6.6 [facility] Comment on above: Performed By: #### E LEC #### [facility] ([id number]) [address], [address] [place] [address] Basophils/100 WBC (Bld) 0.1 % Normal [facility] Comment on above: Performed By: #### E LEC #### [facility] ([id number]) [address], [address] [place] [address] Eosinophils (Bld) [#/Vol] 0.0 10*3/uL Normal 0.0-0.[address] [facility] Comment on above: Performed By: #### E LEC #### [facility] ([id number]) [address], [address] [place] [address] Eosinophils/100 WBC (Bld) 0.0 % Normal [facility] Comment on above: Performed By: #### E LEC #### [facility] ([id number]) [address], [address] [place] [address] Erythrocyte distribution width (RBC) [Ratio] 18.1 % High 11.5-15.[address] [facility] Comment on above: Performed By: #### E LEC #### [facility] ([id number]) [address], [address] [place] [address] Hematocrit (Bld) [Volume fraction] 33.6 % Low 35-[address] [facility] Comment on above: Performed By: #### E LEC #### [facility] ([id number]) [address], [address] [place] [address] Hemoglobin (Bld) [Mass/Vol] 11.2 g/dL Low 11.7-15.[address] [facility] Comment on above: Performed By: #### E LEC #### [facility] ([id number]) [address], [address] [place] [address] Lymphocytes (Bld) [#/Vol] 1.3 10*3/uL Normal 1.0-3.[address] [facility] Comment on above: Performed By: #### E LEC #### [facility] ([id number]) [address], [address] [place] [address] Lymphocytes/100 WBC (Bld) 10.6 % Normal [facility] Comment on above: Performed By: #### E LEC #### [facility] ([id number]) [address], [address] [place] [address] MCH (RBC) [Entitic mass] 25.1 pg Low 27-[address] [facility] Comment on above: Performed By: #### E LEC #### [facility] ([id number]) [address] [place] [address] MCHC (RBC) [Mass/Vol] 33.3 g/dL Normal 32-36 [facility] Comment on above: Performed By: #### E LEC #### [facility] ([id number]) [address], [address] [place] [address] MCV (RBC) [Entitic vol] 76 fL Low 80-[address] [facility] Comment on above: Performed By: #### E LEC #### [facility] ([id number]) [address], [address] [place] [address] Monocytes (Bld) [#/Vol] 0.5 10*3/uL Normal 0-0.[address] [facility] Comment on above: Performed By: #### E LEC #### [facility] ([id number]) [address], [address] [place] [address] Monocytes/100 WBC (Bld) 3.7 % Normal [facility] Comment on above: Performed By: #### E LEC #### [facility] ([id number]) [address], [address] [place] [address] Neutrophils/100 WBC (Bld) 85.6 % Normal [facility] Comment on above: Performed By: #### E LEC #### [facility] ([id number]) [address], [address] [place] [address] Platelet mean volume (Bld) [Entitic vol] 6.9 fL Low 7-[address] [facility] Comment on above: Performed By: #### E LEC #### [facility] ([id number]) [address], [address] [place] [address] Platelets (Bld) [#/Vol] 425 10*3/uL Normal 150-[address] [facility] Comment on above: Performed By: #### E LEC #### [facility] ([id number]) [address], [address] [place] [address] RBC COUNT 4.45 X10E12/L Normal 3.80-5.[address] [facility] Comment on above: Performed By: #### E LEC #### [facility] ([id number]) [address] [place] [address] WBC (Bld) [#/Vol] 12.1 10*3/uL High 4.0-11.0 [facility] Comment on above: Performed By: #### E LEC #### [facility] ([id number]) [address], [address] [place] [address] COMPREHENSIVE METABOLIC PANE Harsha 02-20-2024 Albumin [Mass/Vol] 3.0 g/dL Low 3.2-5.3 [facility] Comment on above: Performed By: #### E LEC #### [facility] ([id number]) [address] [place] [address] ALP [Catalytic activity/Vol] 81 U/L Normal 39-[address] [facility] Comment on above: Performed By: #### E LEC #### [facility] ([id number]) [address], [address] [place] [address] ALT [Catalytic activity/Vol] U/L Normal 0-[address] [facility] Comment on above: Performed By: #### E LEC #### [facility] ([id number]) [address], [address] [place] [address] Anion gap [Moles/Vol] 10 mmol/L Normal 5-15 [facility] Comment on above: Performed By: #### E LEC #### [facility] ([id number]) [address], [address] [place] [address] AST [Catalytic activity/Vol] 9 U/L Normal 0-[address] [facility] Comment on above: Performed By: #### E LEC #### [facility] ([id number]) [address], [address] [place] [address] Bilirubin [Mass/Vol] 0.2 mg/dL Low 0.3-1.2 [facility] Comment on above: Performed By: #### E LEC #### [facility] ([id number]) [address], [address] [place] [address] Calcium [Mass/Vol] 9.1 mg/dL Normal 8.5-10.5 [facility] Comment on above: Performed By: #### E LEC #### [facility] ([id number]) [address], [address] [place] [address] Chloride [Moles/Vol] 97 mmol/L Low 98-109 [facility] Comment on above: Performed By: #### E LEC #### [facility] ([id number]) [address], [address] [place] [address] CO2 [Moles/Vol] 33 mmol/L High 22-[address] [facility] Comment on above: Performed By: #### E LEC #### [facility] ([id number]) [address], [address] [place] [address] Creatinine [Mass/Vol] 1.16 mg/dL High 0.40-1.00 [facility] Comment on above: Result Comment: METH OD TRACEABLE TO IDMS STANDARD Performed By: #### E LEC #### [facility] ([id number]) [address], [address] [place] [address] GFR/1.73 sq M.predicted among non-blacks MDRD (S/P/Bld) [Vol rate/Area] 48 mL/min/{1.73_m2} Low >[address] [facility] Comment on above: Result Comment: Reported eGFR is based on the CKD-EPI 2020 equation that does not use a race coefficient. Performed By: #### E LEC #### [facility] ([id number]) [address], [address] [place] [address] Glucose [Mass/Vol] 171 mg/dL High 65-99 [facility] Comment on above: Performed By: #### E LEC #### [facility] ([id number]) [address], [address] [place] [address] Potassium [Moles/Vol] 3.6 mmol/L Normal 3.5-5.0 [facility] Comment on above: Performed By: #### E LEC #### [facility] ([id number]) [address], [address] [place] [address] Protein [Mass/Vol] 7.1 g/dL Normal 6.0-8.0 [facility] Comment on above: Performed By: #### E LEC #### [facility] ([id number]) [address], [address] [place] [address] Sodium [Moles/Vol] 140 mmol/L Normal 134-146 [facility] Comment on above: Performed By: #### E LEC #### [facility] ([id number]) [address], [address] [place] [address] Urea nitrogen [Mass/Vol] 16 mg/dL Normal 5-[address] [facility] Comment on above: Performed By: #### E LEC #### [facility] ([id number]) [address], [address] [place] [address] MAGNESIUMon 02-20-2024 Magnesium [Mass/Vol] 2.8 mg/dL High 1.8-2.6 [facility] Comment on above: Performed By: #### E LEC #### [facility] ([id number]) [address], [address] [place] [address] Magnesium [Mass/Vol] 1.5 mg/dL Low 1.8-2.6 [facility] Comment on above: Performed By: #### E LEC #### [facility] ([id number]) [address], [address] [place] [address] PHOSPHORUSon 02-20-2024 Phosphate [Mass/Vol] 3.6 mg/dL Normal 2.4-4.9 [facility] Comment on above: Performed By: #### E LEC #### [facility] ([id number]) [address], [address] [place] [address] POTASSIUMon 02-20-2024 Potassium [Moles/Vol] 4.1 mmol/L Normal 3.5-5.0 [facility] Comment on above: Performed By: #### E LEC #### [facility] ([id number]) [address], [address] [place] [address] BASIC METABOLIC PANLon 02-18 Anion gap [Moles/Vol] 10 mmol/L Normal 5-15 [facility] Comment on above: Performed By: #### Timmy MILLIGAN BMP, , 2776-10 #### [facility] ([id number]) [address], [address] [place] [address] Calcium [Mass/Vol] 9.5 mg/dL Normal 8.5-10.5 [facility] Comment on above: Performed By: #### Timmy MILLIGAN BMP, , 2776-10 #### [facility] ([id number]) [address], [address] [place] [address] Chloride [Moles/Vol] 96 mmol/L Low 98-109 [facility] Comment on above: Performed By: #### Timmy MILLIGAN BMP, , 2776-10 #### [facility] ([id number]) [address], [address] [place] [address] CO2 [Moles/Vol] 32 mmol/L Normal 22-[address] [facility] Comment on above: Performed By: #### Timmy MILLIGAN, BMP, , 2776-10 #### [facility] ([id number]) [address], [address] [place] [address] Creatinine [Mass/Vol] 1.10 mg/dL High 0.40-1.00 [facility] Comment on above: Result Comment: METH OD TRACEABLE TO IDMS STANDARD Performed By: #### SANTOSH ASLEEM, , 2776-10 #### [facility] ([id number]) [address], [address] [place] [address] GFR/1.73 sq M.predicted among non-blacks MDRD (S/P/Bld) [Vol rate/Area] 51 mL/min/{1.73_m2} Low >[address] [facility] Comment on above: Result Comment: Reported eGFR is based on the CKD-EPI 2020 equation that does not use a race coefficient. Performed By: #### SANTOSH SALEEM, , 2776-10 #### [facility] ([id number]) [address], [address] [place] [address] Glucose [Mass/Vol] 131 mg/dL High 65-99 [facility] Comment on above: Performed By: #### SANTOSH SALEEM, , 2776-10 #### [facility] ([id number]) [address], [address] [place] [address] Potassium [Moles/Vol] 3.9 mmol/L Normal 3.5-5.0 [facility] Comment on above: Performed By: #### SANTOSH SALEEM, , 2776-10 #### [facility] ([id number]) [address], [address] [place] [address] Sodium [Moles/Vol] 138 mmol/L Normal 134-146 [facility] Comment on above: Performed By: #### Timmy MILLIGAN, SANTOSH, , 2776-10 #### [facility] ([id number]) [address], [address] [place] [address] Urea nitrogen [Mass/Vol] 11 mg/dL Normal 5-[address] [facility] Comment on above: Performed By: #### SANTOSH SALEEM, , 2776-10 #### [facility] ([id number]) [address], [address] [place] [address] BLOOD CULTUREon 02-19-2024 Bacteria identified Aer cx Nom (Bld) SPECIMEN NOTES ONLY ANAEROBIC BOTTLE SENT CULTURE RESULTS NO GROWTH 5 DAYS Normal [facility] Comment on above: Performed By: #### E LEC #### [facility] ([id number]) [address], [address] [place] [address] Bacteria identified Aer cx Nom (Bld) CULTURE RESULTS NO GROWTH 5 DAYS Normal [facility] CBC AND AUTO DIFFon 02-19-20 ABSOLUTE BASOPHIL 0.0 X10E9/L Normal 0.0-0.2 [facility] Comment on above: Performed By: #### SANTOSH SALEEM, , 2776-10 #### [facility] ([id number]) [address], [address] [place] [address] ABSOLUTE NEUTROPHIL 10.1 X10E9/L High 1.5-6.6 [facility] Comment on above: Performed By: #### SANTOSH SALEEM, , 2776-10 #### [facility] ([id number]) [address], [address] [place] [address] Basophils/100 WBC (Bld) 0.3 % Normal [facility] Comment on above: Performed By: #### SANTOSH SALEEM, , 2776-10 #### [facility] ([id number]) [address], [address] [place] [address] Eosinophils (Bld) [#/Vol] 0.2 10*3/uL Normal 0.0-0.[address] [facility] Comment on above: Performed By: #### SANTOSH SALEEM, , 2776-10 #### [facility] ([id number]) [address], [address] [place] [address] Eosinophils/100 WBC (Bld) 1.3 % Normal [facility] Comment on above: Performed By: #### Timmy MILLIGAN, [facility], , 2776-10 #### [facility] ([id number]) [address], [address] [place] [address] Erythrocyte distribution width (RBC) [Ratio] 18.1 % High 11.5-15.[address] [facility] Comment on above: Performed By: #### Timmy MILLIGAN, [facility], , 2776-10 #### [facility] ([id number]) [address], [address] [place] [address] Hematocrit (Bld) [Volume fraction] 37.8 % Normal 35-[address] [facility] Comment on above: Performed By: #### Timmy MILLIGAN, [facility], , 2776-10 #### [facility] ([id number]) [address], [address] [place] [address] Hemoglobin (Bld) [Mass/Vol] 12.1 g/dL Normal 11.7-15.[address] [facility] Comment on above: Performed By: #### ASNTOSH SALEEM, , 2776-10 #### [facility] ([id number]) [address], [address] [place] [address] Lymphocytes (Bld) [#/Vol] 2.5 10*3/uL Normal 1.0-3.[address] [facility] Comment on above: Performed By: #### Timmy MILLIGAN, [facility], , 2776-10 #### [facility] ([id number]) [address], [address] [place] [address] Lymphocytes/100 WBC (Bld) 17.9 % Normal [facility] Comment on above: Performed By: #### Timmy MILLIGAN, SANTOSH, , 2776-10 #### [facility] ([id number]) [address], [address] [place] [address] MCH (RBC) [Entitic mass] 24.4 pg Low 27-[address] [facility] Comment on above: Performed By: #### Timmy MILLIGAN [facility], , 2776-10 #### [facility] ([id number]) [address], [address] [place] [address] MCHC (RBC) [Mass/Vol] 32.0 g/dL Normal 32-36 [facility] Comment on above: Performed By: #### Timmy MILLIGAN [facility], , 2776-10 #### [facility] ([id number]) [address], [address] [place] [address] MCV (RBC) [Entitic vol] 76 fL Low 80-[address] [facility] Comment on above: Performed By: #### Timmy MILLIGAN [facility], , 2776-10 #### [facility] ([id number]) [address], [address] [place] [address] Monocytes (Bld) [#/Vol] 1.4 10*3/uL High 0-0.[address] [facility] Comment on above: Performed By: #### Timmy MILLIGAN [facility], , 2776-10 #### [facility] ([id number]) [address], [address] [place] [address] Monocytes/100 WBC (Bld) 9.9 % Normal [facility] Comment on above: Performed By: #### Timmy MILLIGAN [facility], , 2776-10 #### [facility] ([id number]) [address], [address] [place] [address] Neutrophils/100 WBC (Bld) 70.6 % Normal [facility] Comment on above: Performed By: #### SANTOSH SALEEM, , 2776-10 #### [facility] ([id number]) [address], [address] [place] [address] Platelet mean volume (Bld) [Entitic vol] 6.9 fL Low 7-[address] [facility] Comment on above: Performed By: #### C SRINI [facility], , 2776-1 #### [facility] ([id number]) [address], [address] [place] [address] Platelets (Bld) [#/Vol] 485 10*3/uL High 150-[address] [facility] Comment on above: Performed By: #### C SANTOSH MILLIGAN, , 2776- #### [facility] ([id number]) [address], [address] [place] [address] RBC COUNT 4.95 X10E12/L Normal 3.80-5.[address] [facility] Comment on above: Performed By: #### SANTOSH SALEEM, , 2776- #### [facility] ([id number]) [address], [address] [place] [address] WBC (Bld) [#/Vol] 14.2 10*3/uL High 4.0-11.0 [facility] Comment on above: Performed By: #### SANTOSH SALEEM, , 1 #### [facility] ([id number]) [address], [address] [place] [address] CT ABDOMEN AND PELVIS W CONT on [...] Lehman MD on 02/19/2024 4:54 PM Normal [facility] LEGIONELLA URINE AGon 2023 L. pneumophila Ag IA Ql (U) LEGIONELLA URINE AG Negative (qualifier value) NEGATIVE FOR L.PNEUMOPHILA SEROGROUP 1 ANTIGEN Normal [facility] Comment on above: Performed By: #### E LEC #### [facility] ([id number]) [address] [place] [address] Lactate (P timmy) [Moles/Vol]o n 02-19-2024 LACTATE W/REFLEX 1.7 mmol/L Normal 0.4-2.0 [facility] Comment on above: Result Comment: Result did not trigger repeat Lactate, re-order if needed. Performed By: #### C SRINI, SANTOSH, , 2776-10 #### [facility] ([id number]) [address] [address] [place] [address] MRSA PCR NASALon 02-19-2024 MRSA DNA ELIZABETH+probe Ql (Unsp spec) Negative Normal NEG [facility] Comment on above: Performed By: #### E LEC #### [facility] ([id number]) [address] [facility] [address] [place] [address] Natriuretic peptide B [Mass/ Vol]on 02-19-2024 Natriuretic peptide B (Bld) [Mass/Vol] 38 pg/mL Normal <100.[address] [facility] Comment on above: Performed By: #### C SRINI [facility], , 2776-10 #### [facility] ([id number]) [address] [address] Nuclear Ab IA Ql (S)on 02-18 BRANDON Screen w/reflex Negative Normal NEG [facility] Comment on above: Result Comment: Testing performed using multiplex flow immunoassay. Eleven different antigens associated with systemic autoimmune diseases (dsDNA,Sm,Sm/CLAMSHELL OPERATOR,CLAMSHELL OPERATOR,Chromatin, SSA,SSB,Dacia-1,Scl70,Ribo P,Centromere B) are included in this screening test. Performed By: #### E LEC #### [facility] ([id number]) [address] [address] [place] [address] PROTIME AND INRon 02-19-2024 INR Coag (PPP) [Relative time] 1.1 {INR} Normal 0.8-1.[address] [facility] Comment on above: Performed By: #### C SRINI [facility], , 2776-10 #### [facility] ([id number]) [address] [facility] [facility] [place] [address] PT Coag (PPP) [Time] 13.1 s Normal 9.8-13.2 [facility] Comment on above: Performed By: #### C BC, BMP, 209[address]-3, 2777-1 #### [facility] ([id number]) [address], [address] [place] [address] Procalcitonin IA [Mass/Vol]o n 02-19-2024 PROCALCITONIN 0.10 ng/mL High <0.[address] [facility] Comment on above: Result Comment: NOTE <0.50 ng/mL - Low risk of severe sepsis and/or septic shock. <2.00 ng/mL - Recommend retesting within 6-24 hours. >2.00 ng/mL - High risk of sepsis and/or septic shock. Performed By: #### E LEC #### [facility] ([id number]) [address], [address] [place] [address] Rheumatoid factor Nephelomet ry Qn (S)on 02-19-2024 RHEUMATOID FACTOR <10 Normal <20 [facility] Comment on above: Performed By: #### E LEC #### [facility] ([id number]) [address], [address] [address] S PNEUMONIAE AG Uon 02-19-20 S. pneumoniae Ag Ql (U) Negative Normal NEG [facility] Comment on above: Performed By: #### E LEC #### [facility] ([id number]) [address], [address] [address] SARS/FLU A+B/RSV by NAAT/Mol ecularon 02-19-2024 SARS/FLU [...] operators who are performing tests using either W[employer] DX or Next audience systems and is limited to laboratories that [...] repeat. Fact Sheet for Healthcare Providers: https://www.fda.gov/media/ 514655/download Fact Sheet for Patients: https://www.fda.gov/media/ 227481/download [facility] Comment on above: Performed By: #### E LEC #### [facility] ([id number]) [address], [address] [place] [address] STREP PCR THROATon 4 S. pyogenes DNA ELIZABETH+probe Nom (Unsp spec) STREP PCR THROAT Negative (qualifier value) Streptococcus Group A NOT detected by nucleic acid amplification. [facility] Comment on above: Performed By: #### E LEC #### [facility] ([id number]) [address] [facility] [facility] [place] [address] Troponin I.cardiac High sens itivity method [Mass/Vol]on 02-19-2024 1 HOUR TROP I, HIGH SENSITIVITY 4 ng/L Normal <[address] [facility] Comment on above: Performed By: #### E LEC #### [facility] ([id number]) [address], [address] [place] [address] TROPONIN I, HIGH SENSITIVITY 4 ng/L Normal <[address] [facility] Comment on above: Performed By: #### C BC, BMP, 81436-6, 2777-1 #### [facility] ([id number]) [address] [facility] [place] [address] URINE CULTUREon 02-19-2024 Bacteria identified Cx Nom [...] Interpretation NATALIA Status DAPTOMYCIN S F Susceptible [facility] Comment on above: Performed By: #### E LEC #### [facility] ([id number]) [address], [address] [place] [address] URN MACROSCOPIC NURon 2023 BILIRUBIN OLVIN Negative Normal NEG [facility] Comment on above: Performed By: #### E LEC #### [facility] ([id number]) [address], [address] [place] [address] BLOOD/HGB OLVIN Small Abnormal NEG [facility] Comment on above: Performed By: #### E LEC #### [facility] ([id number]) [address] [place] [address] GLUCOSE OLVIN Negative Normal NEG [facility] Comment on above: Performed By: #### E LEC #### [facility] ([id number]) [address] [place] [address] KETONES OLVIN Negative Normal NEG [facility] Comment on above: Performed By: #### E LEC #### [facility] ([id number]) [address] [place] [address] LEUKOCYTE ESTERASE OLVIN Small Abnormal NEG Pr [facility] Comment on above: Performed By: #### E LEC #### [facility] ([id number]) [address] [place] [address] NITRITE OLVIN Negative Normal NEG [facility] Comment on above: Performed By: #### E LEC #### [facility] ([id number]) [address] [place] [address] PH OLVIN 5.5 Normal 5.0-8.[address] [facility] Comment on above: Performed By: #### E LEC #### [facility] ([id number]) [address] [place] [address] PROTEIN OLVIN Negative Normal NEG [facility] Comment on above: Performed By: #### E LEC #### [facility] ([id number]) [address] [place] [address] SPECIFIC GRAVITY OLVIN 1.015 Normal 1.003-1 .[address] [facility] Comment on above: Performed By: #### E LEC #### [facility] ([id number]) [address] [place] [address] UROBILINOGEN OLVIN 0.2 eu/dL Normal <1.1 [facility] Comment on above: Performed By: #### E LEC #### [facility] ([id number]) [address] [place] [address] VENOUS BLOOD GASon 4 GUNJAN'S TEST Normal [facility] Comment on above: Performed By: #### E LEC #### [facility] ([id number]) [address] [place] [address] Base excess Calc (Bld) [Moles/Vol] 10.0 mmol/L High 0.0-2.[address] [facility] Comment on above: Performed By: #### E LEC #### [facility] ([id number]) [address] [place] [address] Body temperature 98.6 [degF] Normal 37.0 [facility] Comment on above: Performed By: #### E LEC #### [facility] ([id number]) [address] [place] [address] HCO3 (Bld) [Moles/Vol] 34.7 mmol/L High 20.0-24.0 P [facility] Comment on above: Performed By: #### E LEC #### [facility] ([id number]) [address] [place] [address] INSP. O2 CONC. 30 % Normal [facility] Comment on above: Performed By: #### E LEC #### [facility] ([id number]) [address] [place] [address] Oxygen saturation in Blood 89.0 % Normal >80.[address] [facility] Comment on above: Performed By: #### E LEC #### [facility] ([id number]) [address] [place] [address] OXYGEN SOURCE NC Normal [facility] Comment on above: Performed By: #### E LEC #### [facility] ([id number]) [address] [place] [address] PCO2, VENOUS 46.3 MMHG Normal 35-[address] [facility] Comment on above: Performed By: #### E LEC #### [facility] ([id number]) [address] [place] [address] PH, VENOUS 7.482 High 7.320-7.[address] [facility] Comment on above: Performed By: #### E LEC #### [facility] ([id number]) [address] [place] [address] PO2, VENOUS 53 MMHG High 30-[address] [facility] Comment on above: Performed By: #### E LEC #### [facility] ([id number]) [address] [place] [address] SAMPLE SITE N/A Normal [facility] Comment on above: Performed By: #### E LEC #### [facility] ([id number]) [address] [place] [address] SAMPLE TYPE VENOUS Normal [facility] Comment on above: Performed By: #### E LEC #### [facility] ([id number]) [address] [place] [address] XR CHEST 1 VWon 02-19-2024 XR CHEST [...] Hayes MD on 02/19/2024 3:46 PM Normal [facility] aPTT Coag (PPP) [Time]on aPTT Coag (Bld) [Time] 32 s Normal 26-37 [facility] Comment on above: Performed By: #### C BC, BMP, 618[address]-1, 2777-1 #### [facility] ([id number]) [address] [facility] [place] [address] Basic Metabolic Panelon 01-27 Creatinine Clr Calc Pharmacy 50.21 Normal [facility] Comment on above: Result Comment: PERF ORMED BY: [place] [address] PATHOLOGIST [employer] JORGE MURRELL M.D. Performed By: #### E SR, CBC, CMP, BNP #### [place] [address] [place] GFR/1.73 sq M.predicted MDRD (S/P/Bld) [Vol rate/Area] mL/min/{1.73_m2} Normal [facility] Comment on above: Performed By: #### E SR, CBC, CMP, BNP #### [facility] [address] [place] [address] [place] Calcium [Mass/volume] in Ser um or PlasmaOrdered By: Lucho Grullon on 02-17-2024 Calcium [Mass/Vol] 8.5 mg/dL Low 8.6-10.3 [facility] Comment on above: Performed By: #### E SR, CBC, CMP, BNP #### [facility] [address] [place] [address] [place] Carbon dioxide, total [Moles /volume] in Serum or PlasmaOrdered By: Lucho Grullon on 02-17-2024 CO2 [Moles/Vol] 29.4 mmol/L Normal 21.0-31.0 [facility] Comment on above: Performed By: #### E SR, CBC, CMP, BNP #### [facility] [address] [place] [address] [place] Chloride [Moles/volume] in S kaveh or PlasmaOrdered By: Lucho Grullon on 02-17-2024 Chloride [Moles/Vol] 103 mmol/L Normal 98-107 [facility] Comment on above: Performed By: #### E SR, CBC, CMP, BNP #### [address] Creatinine [Mass/volume] in Serum or PlasmaOrdered By: Lucho Grullon on 02-17-2024 Creatinine [Mass/Vol] 0.90 mg/dL Normal 0.60-1.20 [facility] Comment on above: Performed By: #### E SR, CBC, CMP, BNP #### [address] Erythrocyte distribution wid th [Ratio] by Automated countOrdered By: Lucho Grullon on 02-17-2024 Erythrocyte distribution width (RBC) [Ratio] 18.2 % High 11.9-15.3 [facility] Comment on above: Performed By: #### E SR, CBC, CMP, BNP #### [address] Erythrocytes [#/volume] in B lood by Automated countOrdered By: Lucho Grullon on 02-17-2024 RBC (Bld) [#/Vol] 4.25 10*6/uL Normal 3.60-5.00 [facility] Comment on above: Performed By: #### E SR, CBC, CMP, BNP #### [address] Glucose [Mass/volume] in Ser um or PlasmaOrdered By: Lucho Grullon on 02-17-2024 Glucose [Mass/Vol] 85 mg/dL Normal 70-100 [facility] Comment on above: ADA recommended refe rence rangeRandom Glucose Reference Range is dependent on time and content of last meal. Glucose of more than 200 mg/dL in a nonstressed, ambulatory subject supports the diagnosis of Diabetes Mellitus. Result Comment: [place] om Glucose Reference Range is dependent on time and content of last meal. Glucose of more than 200 mg/dL in a nonstressed, ambulatory subject supports the diagnosis of Diabetes Mellitus. ADA recommended reference range Performed By: #### E SR, CBC, CMP, BNP #### [address] Hematocrit [Volume Fraction] of Blood by Automated countOrdered By: Lucho Grullon on 02-17-2024 Hematocrit (Bld) [Volume fraction] 32.8 % Low 34.0-46.4 [facility] Comment on above: Performed By: #### E SR, CBC, CMP, BNP #### [address] Hemoglobin [Mass/volume] in BloodOrdered By: Lucho Grullon on 02-17-2024 Hemoglobin (Bld) [Mass/Vol] 10.6 g/dL Low 11.8-15.4 [facility] Comment on above: Performed By: #### E SR, CBC, CMP, BNP #### [address] Hemogram CBC Without Diffon 02-17-2024 Mean Corpuscular HGB Conc 32.3 g/dL Normal 32.0-35.0 [facility] Comment on above: Performed By: #### E SR, CBC, CMP, BNP #### [address] WBC (Bld) [#/Vol] 10.9 10*3/uL Normal 3.8-11.6 [facility] Comment on above: Performed By: #### E SR, CBC, CMP, BNP #### [address] Leukocytes [#/volume] correc juma for nucleated erythrocytes in Blood by Automated counOrdered By: Lucho Grullon on 02-17-2024 WBC corrected for nucl RBC Auto (Bld) [#/Vol] 10.9 10*3/uL 3.8-11.6 [facility] MCH [Entitic mass] by Automa juma countOrdered By: Lucho Grullon on 02-17-2024 MCH (RBC) [Entitic mass] 24.9 pg Normal 24.7-34.3 [facility] Comment on above: Performed By: #### E SR, CBC, CMP, BNP #### [facility] [address] [place] [address] MCHC Auto (RBC) [Mass/Vol]Or dered By: Lucho Génesismariza on 02-17-2024 MCHC (RBC) [Mass/Vol] 32.3 g/dL 32.0-35.0 [facility] MCV [Entitic volume] by Auto mated countOrdered By: Lucho Génesismariza on 02-17-2024 MCV (RBC) [Entitic vol] 77.2 fL Low 80-100 [facility] Comment on above: Performed By: #### E SR, CBC, CMP, BNP #### [facility] [address] [place] [address] No Panel InformationOrdered By: Lucho Grullon on 02-17-2024 Estimated GFR (CKD-EPI) > 60.0 mL/Min [facility] Creatinine Clearance (Chem 50.21 [facility] Platelet mean volume [Entiti c volume] in Blood by Automated countOrdered By: Lucho Grullon on 02-17-2024 Platelet mean volume (Bld) [Entitic vol] 6.9 fL Normal 6.3-10.7 [facility] Comment on above: Result Comment: PERF ORMED BY: [place] [address] PATHOLOGIST [employer] JORGE MURRELL M.D. Performed By: #### E SR, CBC, CMP, BNP #### [facility] [address] [place] [address] Platelets [#/volume] in Bloo d by Automated countOrdered By: Lucho Grullon on 02-17-2024 Platelets (Bld) [#/Vol] 370 10*3/uL Normal 150-450 [facility] Comment on above: Performed By: #### E SR, CBC, CMP, BNP #### [facility] [address] [place] [address] Potassium [Moles/volume] in Serum or PlasmaOrdered By: Lucho Grullon on 02-17-2024 Potassium [Moles/Vol] 4.2 mmol/L Normal 3.5-5.1 [facility] Comment on above: Performed By: #### E SR, CBC, CMP, BNP #### [address] Serum or plasma anion gap de terminationOrdered By: Lucho Hammersylvia on 02-17-2024 Anion gap [Moles/Vol] 10.8 mmol/L Normal 6.0-15.0 [facility] Comment on above: Performed By: #### E SR, CBC, CMP, BNP #### [address] Sodium [Moles/volume] in Ser um or PlasmaOrdered By: Yaimajames Jaquelinsylvia on 02-17-2024 Sodium [Moles/Vol] 139 mmol/L Normal 136-145 [facility] Comment on above: Performed By: #### E SR, CBC, CMP, BNP #### [address] Urea nitrogen [Mass/volume] in Serum or PlasmaOrdered By: Yaimajames Jaquelinsylvia on 02-17-2024 Urea nitrogen [Mass/Vol] 8 mg/dL Normal 7-25 [facility] Comment on above: Performed By: #### E SR, CBC, CMP, BNP #### [address] Aerobic Cultureon 02-16-2024 Aerobic Culture Light Normal Respira tory Kimberly 2 Days Gram Stain Result 3+ White Blood Cells 1+ Epithelial Cells 2+ Gram Positive Cocci 1+ Yeast Like Elements PERFORMED BY: [place] [address] PATHOLOGIST [employer] JORGE MURRELL M.D. Normal [facility] Comment on above: Performed By: #### E SR, CBC, CMP, BNP #### [address] Basic Metabolic Panelon 04-2 Anion gap [Moles/Vol] 9.6 mmol/L Normal 6.0-15.0 [facility] Comment on above: Performed By: #### E SR, CBC, CMP, BNP #### [facility] [address] [place] [address] [place] Calcium [Mass/Vol] 8.5 mg/dL Low 8.6-10.3 [facility] Comment on above: Performed By: #### E SR, CBC, CMP, BNP #### [facility] [address] [place] [address] [place] Chloride [Moles/Vol] 103 mmol/L Normal 98-107 [facility] Comment on above: Performed By: #### E SR, CBC, CMP, BNP #### [facility] [address] [place] [address] [place] CO2 [Moles/Vol] 27.3 mmol/L Normal 21.0-31.0 [facility] Comment on above: Performed By: #### E SR, CBC, CMP, BNP #### [place] [address] [place] Creatinine [Mass/Vol] 0.92 mg/dL Normal 0.60-1.20 [facility] Comment on above: Performed By: #### E SR, CBC, CMP, BNP #### [place] [address] [place] Creatinine Clr Calc Pharmacy 47.75 Normal [facility] Comment on above: Result Comment: PERF ORMED BY: [place] [address] PATHOLOGIST [employer] JORGE MURRELL M.D. Performed By: #### E SR, CBC, CMP, BNP #### [place] [address] [place] GFR/1.73 sq M.predicted MDRD (S/P/Bld) [Vol rate/Area] mL/min/{1.73_m2} Normal [facility] Comment on above: Performed By: #### E SR, CBC, CMP, BNP #### [facility] [address] [place] [address] [place] Glucose [Mass/Vol] 83 mg/dL Normal 70-100 [facility] Comment on above: Result Comment: [place] Glucose Reference Range is dependent on time and content of last meal. Glucose of more than 200 mg/dL in a nonstressed, ambulatory subject supports the diagnosis of Diabetes Mellitus. ADA recommended reference range Performed By: #### E SR, CBC, CMP, BNP #### [address] Potassium [Moles/Vol] 3.9 mmol/L Normal 3.5-5.1 [facility] Comment on above: Performed By: #### E SR, CBC, CMP, BNP #### [address] Sodium [Moles/Vol] 136 mmol/L Normal 136-145 [facility] Comment on above: Performed By: #### E SR, CBC, CMP, BNP #### [address] Urea nitrogen [Mass/Vol] 9 mg/dL Normal 7-25 [facility] Comment on above: Performed By: #### E SR, CBC, CMP, BNP #### [address] Gram stain for investigation of transfusion reactionOrdered By: Lucho Grullon on 02-16-2024 Microscopic observation Gram stain Nom (Unsp spec) 1 Day [facility] Hemogram CBC Without Diffon 02-16-2024 Erythrocyte distribution width (RBC) [Ratio] 18.3 % High 11.9-15.3 [facility] Comment on above: Performed By: #### E SR, CBC, CMP, BNP #### [address] Hematocrit (Bld) [Volume fraction] 33.8 % Low 34.0-46.4 [facility] Comment on above: Performed By: #### E SR, CBC, CMP, BNP #### [address] Hemoglobin (Bld) [Mass/Vol] 10.6 g/dL Low 11.8-15.4 [facility] Comment on above: Performed By: #### E SR, CBC, CMP, BNP #### [address] MCH (RBC) [Entitic mass] 24.1 pg Low 24.7-34.3 [facility] Comment on above: Performed By: #### E SR, CBC, CMP, BNP #### [address] MCV (RBC) [Entitic vol] 76.8 fL Low 80-100 [facility] Comment on above: Performed By: #### E SR, CBC, CMP, BNP #### [address] Mean Corpuscular HGB Conc 31.4 g/dL Low 32.0-35.0 [facility] Comment on above: Performed By: #### E SR, CBC, CMP, BNP #### [address] Platelet mean volume (Bld) [Entitic vol] 7.1 fL Normal 6.3-10.7 [facility] Comment on above: Result Comment: PERF ORMED BY: [place] [address] PATHOLOGIST [employer] JORGE MURRELL M.D. Performed By: #### E SR, CBC, CMP, BNP #### [place] [address] [place] Platelets (Bld) [#/Vol] 373 10*3/uL Normal 150-450 [facility] Comment on above: Performed By: #### E SR, CBC, CMP, BNP #### [address] RBC (Bld) [#/Vol] 4.41 10*6/uL Normal 3.60-5.00 [facility] Comment on above: Performed By: #### E SR, CBC, CMP, BNP #### [address] WBC (Bld) [#/Vol] 11.1 10*3/uL Normal 3.8-11.6 [facility] Comment on above: Performed By: #### E SR, CBC, CMP, BNP #### [facility] [address] Basic Metabolic Panelon 042 0-2023 Anion gap [Moles/Vol] 9.8 mmol/L Normal 6.0-15.0 [facility] Comment on above: Performed By: #### E SR, CBC, CMP, BNP #### [address] Calcium [Mass/Vol] 8.4 mg/dL Low 8.6-10.3 [facility] Comment on above: Performed By: #### E SR, CBC, CMP, BNP #### [address] Chloride [Moles/Vol] 103 mmol/L Normal 98-107 [facility] Comment on above: Performed By: #### E SR, CBC, CMP, BNP #### [address] CO2 [Moles/Vol] 28.7 mmol/L Normal 21.0-31.0 [facility] Comment on above: Performed By: #### E SR, CBC, CMP, BNP #### [address] Creatinine [Mass/Vol] 1.16 mg/dL Normal 0.60-1.20 [facility] Comment on above: Performed By: #### E SR, CBC, CMP, BNP #### [place] [address] [place] Creatinine Clr Calc Pharmacy 37.75 Normal [facility] Comment on above: Performed By: #### E SR, CBC, CMP, BNP #### [place] [address] [place] GFR/1.73 sq M.predicted MDRD (S/P/Bld) [Vol rate/Area] 48.257 mL/min/{1.73_m2} Normal [facility] Comment on above: Performed By: #### E SR, CBC, CMP, BNP #### [place] [address] [place] Glucose [Mass/Vol] 79 mg/dL Normal 70-100 [facility] Comment on above: Result Comment: [place] Glucose Reference Range is dependent on time and content of last meal. Glucose of more than 200 mg/dL in a nonstressed, ambulatory subject supports the diagnosis of Diabetes Mellitus. ADA recommended reference range Performed By: #### E SR, CBC, CMP, BNP #### [facility] [address] Potassium [Moles/Vol] 3.5 mmol/L Normal 3.5-5.1 [facility] Comment on above: Performed By: #### E SR, CBC, CMP, BNP #### [facility] [address] Sodium [Moles/Vol] 138 mmol/L Normal 136-145 [facility] Comment on above: Performed By: #### E SR, CBC, CMP, BNP #### [address] Urea nitrogen [Mass/Vol] 14 mg/dL Normal 7-25 [facility] Comment on above: Performed By: #### E SR, CBC, CMP, BNP #### [address] Clostridioides difficile tox in B tcdB gene [Presence] in Stool by ELIZABETH with probe deteOrdered By: Lucho Grullon on 02-15-2024 C. difficile toxin B tcdB gene ELIZABETH+probe Ql (Stl) Negative Negative [facility] Comment on above: Testing performed by RT-PCR Clostridium Difficileon 01-27 Clostridium Difficile Negative Normal Negative [facility] Comment on above: Order Comment: > or = to 3 loose/watery stools in the last 24 HRS? Y Is patient on promotility agents or tube feeding? N Result Comment: Test ing performed by RT-PCR PERFORMED BY: [place] [address] PATHOLOGIST [employer]ISHER JORGE MURRELL M.D. Performed By: #### E SR, CBC, CMP, BNP #### [address] Hemogram CBC Without Diffon 02-15-2024 Erythrocyte distribution width (RBC) [Ratio] 18.2 % High 11.9-15.3 [facility] Comment on above: Performed By: #### E SR, CBC, CMP, BNP #### [address] Hematocrit (Bld) [Volume fraction] 34.6 % Normal 34.0-46.4 [facility] Comment on above: Performed By: #### E SR, CBC, CMP, BNP #### [address] Hemoglobin (Bld) [Mass/Vol] 10.9 g/dL Low 11.8-15.4 [facility] Comment on above: Performed By: #### E SR, CBC, CMP, BNP #### [address] MCH (RBC) [Entitic mass] 24.2 pg Low 24.7-34.3 [facility] Comment on above: Performed By: #### E SR, CBC, CMP, BNP #### [address] MCV (RBC) [Entitic vol] 77.1 fL Low 80-100 [facility] Comment on above: Performed By: #### E SR, CBC, CMP, BNP #### [address] Mean Corpuscular HGB Conc 31.4 g/dL Low 32.0-35.0 [facility] Comment on above: Performed By: #### E SR, CBC, CMP, BNP #### [address] Platelet mean volume (Bld) [Entitic vol] 7.0 fL Normal 6.3-10.7 [facility] Comment on above: Result Comment: PERF ORMED BY: [place] [address] PATHOLOGIST [employer] FINISHER JORGE MURRELL M.D. Performed By: #### E SR, CBC, CMP, BNP #### [address] Platelets (Bld) [#/Vol] 333 10*3/uL Normal 150-450 [facility] Comment on above: Performed By: #### E SR, CBC, CMP, BNP #### [address] RBC (Bld) [#/Vol] 4.48 10*6/uL Normal 3.60-5.00 [facility] Comment on above: Performed By: #### E SR, CBC, CMP, BNP #### [address] WBC (Bld) [#/Vol] 10.0 10*3/uL Normal 3.8-11.6 [facility] Comment on above: Performed By: #### E SR, CBC, CMP, BNP #### [address] Lactoferrin, Stool WBCon Lactoferrin, Stool WBC LACTOFERRIN Positive for Fecal Lactoferrin Review patient history for chronic inflammatory conditions and status which can cause positive results unrelated to acute infectious disease. -- Reference range = Negative PERFORMED BY: [place] [address] PATHOLOGIST [employer] FINISHER JORGE MURRELL M.D. Normal [facility] Comment on above: Performed By: #### E SR, CBC, CMP, BNP #### [address] Magnesium [Mass/volume] in S kaveh or PlasmaOrdered By: Lucho Grullon on 02-15-2024 Magnesium [Mass/Vol] 1.5 mg/dL Low 1.9-2.7 [facility] Comment on above: Result Comment: PERF ORMED BY: [place] [address] PATHOLOGIST [employer] FINISHER JORGE MURRELL M.D. Performed By: #### E SR, CBC, CMP, BNP #### [place] [id number] [facility] Stool Cultureon 02-15-2024 Stool culture Negative for Shiga T oxin 1 Negative for Shiga Toxin 2 -- A negative Shiga Toxin result may occur if the antigen level in the specimen is below the detection limit of the assay. Stool culture results No Salmonella, Shigella, Campy or E. coli 0157:H7 Isolated PERFORMED BY: [place] [address] PATHOLOGIST [employer] FINISHER JORGE MURRELL M.D. [place] [facility] Comment on above: Performed By: #### E SR, CBC, CMP, BNP #### [place] [id number] [facility] Stool bacteria identificatio n by cultureOrdered By: Lucho Grullon on 02-15-2024 Bacteria identified Cx Nom (Stl) [facility] Stool lactoferrin detectionO rdered By: Lucho Grullon on 02-15-2024 Lactoferrin Ql (Stl) [facility] US venous duplex LE RTon US venous duplex LE RT [facility] [place] [address] Ultrasound Report Signed Patient: Gera Perdue MR#: [id number] : 1945 Acct:[id number] Age/Sex: 78 / F ADM Date: 02/14/24 Loc: Room: [address] [place] [address] Type: ADM IN Attending Dr: Lucho Grullon [...] Hilario Angulo MD02/15/2024 11:55 AM Dictation Location: [place] [address] Tech: Elizabeth Correiarebeca Transcribed By: ANA 02/15/24 1155 Dictated By: Hilario Angulo MD 02/15/24 1154 Signed By: 02/15/24 1155 Normal [facility] Alanine aminotransferase [En zymatic activity/volume] in Serum or PlasmaOrdered By: Kadie Jones on 02-14-2024 ALT [Catalytic activity/Vol] 5 U/L Low 7-52 [facility] Comment on above: Performed By: #### S CAN CBC, LIPASE, CMP, HS TROP, MG, NORMA #### [facility] [address] [place] [address] Albumin [Mass/volume] in Ser um or Plasma by Bromocresol green (BCG) dye binding methoOrdered By: Kadie Jones on 02-14-2024 Albumin BCG dye [Mass/Vol] 3.7 g/dL 3.5-5.7 [facility] Alkaline phosphatase [Enzyma tic activity/volume] in Serum or PlasmaOrdered By: Kadie Jones on 02-14-2024 ALP [Catalytic activity/Vol] 75 U/L Normal 34-104 [facility] Comment on above: Performed By: #### S CAN CBC, LIPASE, CMP, HS TROP, MG, NORMA #### [facility] [address] Amylase [Enzymatic activity/ volume] in Serum or PlasmaOrdered By: Kadie Abhilashimore on 02-14-2024 Amylase [Catalytic activity/Vol] 10 U/L Low 29-103 [facility] Comment on above: Performed By: #### S CAN CBC, LIPASE, CMP, HS TROP, MG, NORMA #### [facility] [address] Aspartate aminotransferase [ Enzymatic activity/volume] in Serum or PlasmaOrdered By: Kadie Bullimore on 02-14-2024 AST [Catalytic activity/Vol] 11 U/L Low 13-39 [facility] Comment on above: Performed By: #### S CAN CBC, LIPASE, CMP, HS TROP, MG, NORMA #### [facility] [address] [place] [address] Automated basophil %Ordered By: Kadie Karen on 02-14-2024 Basophils/100 WBC (Bld) 0.9 % Normal . [facility] Comment on above: Performed By: #### S CAN CBC, LIPASE, CMP, HS TROP, MG, NORMA #### [facility] [address] [place] [address] Automated basophil countOrde red By: Kadie Jones on 02-14-2024 Basophils (Bld) [#/Vol] 0.1 10*3/uL Normal 0.0-0.2 [facility] Comment on above: Result Comment: PERF ORMED BY: [place] [address] PATHOLOGIST [employer] FINISHER JORGE MURRELL M.D. Performed By: #### S CAN CBC, LIPASE, CMP, HS TROP, MG, NORMA #### [facility] [address] [place] [address] Automated blood monocyte cou ntOrdered By: Kadie Jones on 02-14-2024 Monocytes (Bld) [#/Vol] 1.7 10*3/uL High 0.0-0.8 [facility] Comment on above: Performed By: #### S CAN CBC, LIPASE, CMP, HS TROP, MG, NORMA #### [address] Automated eosinophil %Ordere d By: Kadieruslan Hunglamonte on 02-14-2024 Eosinophils/100 WBC (Bld) 0.4 % Normal . [facility] Comment on above: Performed By: #### S CAN CBC, LIPASE, CMP, HS TROP, MG, NORMA #### [address] Automated eosinophil countOr dered By: Kadie Abhilashlamonte on 02-14-2024 Eosinophils (Bld) [#/Vol] 0.0 10*3/uL Normal 0.0-0.45 [facility] Comment on above: Performed By: #### S CAN CBC, LIPASE, CMP, HS TROP, MG, NORMA #### [address] Automated erythrocytes count in urine sediment (number/area)Ordered By: Kadieruslan Hunglamonte on 02-14-2024 RBC Auto (Urine sed) [#/Area] 0-1 [HPF] 0-4 [facility] Automated leukocytes count i n urine sediment (number/area)Ordered By: Kadie Hungjessicaore on 02-14-2024 WBC Auto (Urine sed) [#/Area] 50-100 [HPF] 0-4 [facility] Automated monocyte %Ordered By: Kadie Hunglamonte on 02-14-2024 Monocytes/100 WBC (Bld) 12.3 % Normal . [facility] Comment on above: Performed By: #### S CAN CBC, LIPASE, CMP, HS TROP, MG, NORMA #### [facility] [address] [place] [address] Automated neutrophil %Ordere d By: Kadie Hungjessicaore on 02-14-2024 Neutrophils/100 WBC (Bld) 62.7 % Normal . [facility] Comment on above: Performed By: #### S CAN CBC, LIPASE, CMP, HS TROP, MG, NORMA #### [address] Automated urine color determ inationOrdered By: Kadie Jones on 02-14-2024 Color (U) Dark yellow Critically abnormal Yellow [facility] Comment on above: Order Comment: Name Collection Type:: Straight Catheter Performed By: #### E SR, CBC, CMP, BNP #### [address] BNP ser/plasOrdered By: Bianca er Karen on 02-14-2024 Natriuretic peptide B (Bld) [Mass/Vol] 29.0 pg/mL Normal 5-100 [facility] Comment on above: Result Comment: PERF ORMED BY: [place] [address] PATHOLOGIST [employer] FINISHER JORGE MURRELL M.D. Performed By: #### E SR, CBC, CMP, BNP #### [address] Bilirubin Test strip Ql (U)O rdered By: Kadie Jones on 02-14-2024 Bilirubin Ql (U) Negative Negative [facility] Bilirubin.total [Mass/volume ] in Serum or PlasmaOrdered By: Kadie Jones on 02-14-2024 Bilirubin [Mass/Vol] 0.5 mg/dL Normal 0.3-1.0 [facility] Comment on above: Performed By: #### S CAN CBC, LIPASE, CMP, HS TROP, MG, NORMA #### [address] Blood Cultureon 02-14-2024 Bacteria identified Cx Nom (Bld) NO GROWTH 5 DAYS PERFORMED BY: [place] [address] PATHOLOGIST [employer] FINISHER JORGE MURRELL M.D. Normal [facility] Comment on above: Performed By: #### E SR, CBC, CMP, BNP #### [address] Bacteria identified Cx Nom (Bld) NO GROWTH 5 DAYS PERFORMED BY: [place] [address] PATHOLOGIST [employer] FINISHER JORGE MURRELL M.D. Normal [facility] Comment on above: Performed By: #### E SR, CBC, CMP, BNP #### [facility] [address] [place] [address] [facility] COVID CepheidOrdered By: Abbi Jones on 02-14-2024 SARS-CoV-2 (COVID-19) Ab IA Ql Negative Negative [facility] Comment on above: This is a duplicate Cepheid Xpert Xpress CoV-2/Flu/RSV Plus RNA by RT-PCR result to be used for statistical tracking purpose only. SARS-CoV-2 (COVID-19) RNA ELIZABETH+probe Ql (Unsp spec) [facility] COVID-19 / Flu A/B / RSV PCR [...] or Cepheid Disclaimer revoked sooner. PERFORMED BY: [place] [address] PATHOLOGIST [employer] FINISHER JORGE MURRELL M.D. Normal [facility] Comment on above: Performed By: #### E SR, CBC, CMP, BNP #### [address] abdomen pelvis w conon CT abdomen pelvis w con [facility] [place] [address] [place] [address] CT Scan Report Signed Patient: Gera Perdue MR#: [id number] : 1945 Acct:[id number] Age/Sex: 78 / F ADM Date: 02/14/24 Loc: ER Room: Type: [facility] ER Attending Dr: Copies to: [facility] [...] Bhavesh Avendaño M.D.02/14/2024 2:21 PM Dictation Location: [place] [address] Transcribed By: [facility] 02/14/24 1421 Dictated By: Bhavesh Avendaño II, MD 02/14/24 1411 Signed By: 02/14/24 1421 Normal [facility] Calcium [Mass/volume] in Ser um or PlasmaOrdered By: Kdaie Bullimore on 02-14-2024 Calcium [Mass/Vol] 9.5 mg/dL Normal 8.6-10.3 [facility] Comment on above: Performed By: #### S CAN CBC, LIPASE, CMP, HS TROP, MG, NORMA #### [address] Carbon dioxide, total [Moles /volume] in Serum or PlasmaOrdered By: Kadie Jones on 02-14-2024 CO2 [Moles/Vol] 30.8 mmol/L Normal 21.0-31.0 [facility] Comment on above: Performed By: #### S CAN CBC, LIPASE, CMP, HS TROP, MG, NORMA #### [facility] [facility] [address] Cepheid COVID PCR Negativeon 02-14-2024 SARS-CoV-2 (COVID-19) RNA ELIZABETH+probe Ql (Unsp spec) Negative Normal Negative [facility] Comment on above: Result Comment: This is a duplicate Cepheid Xpert Xpress CoV-2/Flu/RSV Plus RNA by RT-PCR result to be used for statistical tracking purpose only. PERFORMED BY: [place] [address] PATHOLOGIST FLY FINISHER JORGE MURRELL M.D. Performed By: #### E SR, CBC, CMP, BNP #### [facility] [address] [place] [address] [place] Chloride [Moles/volume] in S kaveh or PlasmaOrdered By: Kadie Hungimore on 02-14-2024 Chloride [Moles/Vol] 97 mmol/L Low 98-107 [facility] Comment on above: Performed By: #### S CAN CBC, LIPASE, CMP, HS TROP, MG, NROMA #### [facility] [address] Comprehensive Metabolic Pane harsha 02-14-2024 Albumin [Mass/Vol] 3.7 g/dL Normal 3.5-5.7 [facility] Comment on above: Performed By: #### S CAN CBC, LIPASE, CMP, HS TROP, MG, NORMA #### [address] Creatinine Clr Calc Pharmacy 32.86 Normal [facility] Comment on above: Performed By: #### S CAN CBC, LIPASE, CMP, HS TROP, MG, NORMA #### [address] GFR/1.73 sq M.predicted MDRD (S/P/Bld) [Vol rate/Area] 41.325 mL/min/{1.73_m2} Normal [facility] Comment on above: Performed By: #### S CAN CBC, LIPASE, CMP, HS TROP, MG, NORMA #### [address] Creatinine [Mass/volume] in Serum or PlasmaOrdered By: Kadie Jones on 02-14-2024 Creatinine [Mass/Vol] 1.32 mg/dL High 0.60-1.20 [facility] Comment on above: Performed By: #### S CAN CBC, LIPASE, CMP, HS TROP, MG, NORMA #### [place] [address] [place] Dipstick and Microscopicon 0 02-14-2024 Appearance (U) Clear Normal Clear [facility] Comment on above: Order Comment: Name Collection Type:: Straight Catheter Performed By: #### E SR, CBC, CMP, BNP #### [place] [address] [place] Bacteria,Urine 4+ High None Seen [facility] Comment on above: Order Comment: Name Collection Type:: Straight Catheter Performed By: #### E SR, CBC, CMP, BNP #### [address] Bilirubin,Urine Negative Normal Negative [facility] Comment on above: Order Comment: Name Collection Type:: Straight Catheter Performed By: #### E SR, CBC, CMP, BNP #### [place] [address] [place] Glucose Ql (U) Normal Normal Normal [facility] Comment on above: Order Comment: Name Collection Type:: Straight Catheter Performed By: #### E SR, CBC, CMP, BNP #### [place] [address] [place] Hyaline Casts,Urine 9-19 High 0-8 [facility] Comment on above: Order Comment: Name Collection Type:: Straight Catheter Result Comment: PERF ORMED BY: [place] [address] PATHOLOGIST [employer]Y FINISHER JORGE MURRELL M.D. Performed By: #### E SR, CBC, CMP, BNP #### [address] Ketones Ql (U) Trace High Negative [facility] Comment on above: Order Comment: Name Collection Type:: Straight Catheter Performed By: #### E SR, CBC, CMP, BNP #### [place] [address] [place] Leukocyte esterase Test strip Ql (U) 3+ High Negative [facility] Comment on above: Order Comment: Name Collection Type:: Straight Catheter Performed By: #### E SR, CBC, CMP, BNP #### [place] [address] [place] Nitrite,Urine Positive High Negative [facility] Comment on above: Order Comment: Name Collection Type:: Straight Catheter Performed By: #### E SR, CBC, CMP, BNP #### [place] [address] [place] Occult Blood,Urine Trace High Negative [facility] Comment on above: Order Comment: Name Collection Type:: Straight Catheter Result Comment: PERF ORMED BY: [place] [address] PATHOLOGIST FL[employer] FINISHER JORGE MURRELL M.D. Performed By: #### E SR, CBC, CMP, BNP #### [facility] [address] RBC LM.HPF (Urine sed) [#/Area] 0 /[HPF] Normal 0-4 [facility] Comment on above: Order Comment: Name Collection Type:: Straight Catheter Performed By: #### E SR, CBC, CMP, BNP #### [address] Specificy [place],Urine 1.024 Normal 1.001-1.03 0 [facility] Comment on above: Order Comment: Name Collection Type:: Straight Catheter Performed By: #### E SR, CBC, CMP, BNP #### [address] Squamous Epithelial Cell,Urine None Seen Normal 0-2 [facility] Comment on above: Order Comment: Name Collection Type:: Straight Catheter Performed By: #### E SR, CBC, CMP, BNP #### [address] Urobilinogen,Urine Normal Normal Normal [facility] Comment on above: Order Comment: Name Collection Type:: Straight Catheter Performed By: #### E SR, CBC, CMP, BNP #### [address] WBC,Urine 50-100 High 0-4 [facility] Comment on above: Order Comment: Name Collection Type:: Straight Catheter Performed By: #### E SR, CBC, CMP, BNP #### [address] ECG 12 lead ECGon 02-14-2024 ECG 12 lead ECG [facility] [place] [address] [place] [address] Electrocardiograph Report Signed Patient: Gera Perdue MR#: [id number] : 1945 Acct:[id number] Age/Sex: 78 / F ADM Date: 02/14/24 Loc: ER Room: Type: [facility] ER Attending Dr: Ordering Provider: CHIP Greenwood [...] was found Confirmed by MARSHALL DOMINGUEZ DO ([id number]) on 02/14/2024 3:23:36 PM Referred By: Electronically Signed By:MARSHALL DOMINGUEZ DO Transcribed By: MUS Signed By Marshall Dominguez DO 02/13 1523 Normal [facility] Erythrocyte distribution wid th [Ratio] by Automated countOrdered By: Kadie Jones on 02-14-2024 Erythrocyte distribution width (RBC) [Ratio] 18.4 % High 11.9-15.3 [facility] Comment on above: Performed By: #### S CAN CBC, LIPASE, CMP, HS TROP, MG, NORMA #### [facility] [address] Erythrocytes [#/volume] in B lood by Automated countOrdered By: Kadie Jones on 02-14-2024 RBC (Bld) [#/Vol] 5.04 10*6/uL High 3.60-5.00 [facility] Comment on above: Performed By: #### S CAN CBC, LIPASE, CMP, HS TROP, MG, NORMA #### [facility] [address] Glucose [Mass/volume] in Ser um or PlasmaOrdered By: Kadie Jones on 02-14-2024 Glucose [Mass/Vol] 85 mg/dL Normal 70-100 [facility] Comment on above: ADA recommended refe rence rangeRandom Glucose Reference Range is dependent on time and content of last meal. Glucose of more than 200 mg/dL in a nonstressed, ambulatory subject supports the diagnosis of Diabetes Mellitus. Result Comment: [place] om Glucose Reference Range is dependent on time and content of last meal. Glucose of more than 200 mg/dL in a nonstressed, ambulatory subject supports the diagnosis of Diabetes Mellitus. ADA recommended reference range Performed By: #### S CAN CBC, LIPASE, CMP, HS TROP, MG, NORMA #### [address] Hematocrit [Volume Fraction] of Blood by Automated countOrdered By: Kadie Jones on 02-14-2024 Hematocrit (Bld) [Volume fraction] 38.5 % Normal 34.0-46.4 [facility] Comment on above: Performed By: #### S CAN CBC, LIPASE, CMP, HS TROP, MG, NORMA #### [address] Hemoglobin [Mass/volume] in BloodOrdered By: Kadie Jones on 02-14-2024 Hemoglobin (Bld) [Mass/Vol] 12.2 g/dL Normal 11.8-15.4 [facility] Comment on above: Performed By: #### S CAN CBC, LIPASE, CMP, HS TROP, MG, NORMA #### [address] Ketones Auto test strip (U) [Mass/Vol]Ordered By: Kadie Jones on 02-14-2024 Ketones (U) [Mass/Vol] Trace Negative [facility] - UrinalysisOrder ed By: Kadie Jones on 02-14-2024 Hyaline casts LM Ql (Urine sed) 9-19 [LPF] 0-8 [facility] Lactate [Moles/volume] in Se rum or PlasmaOrdered By: Kadie Jones on 02-14-2024 Lactate [Moles/Vol] 0.8 mmol/L Normal 0.5-2.2 [facility] Comment on above: Result Comment: PERF ORMED BY: [place] [address] PATHOLOGIST FL[employer] FINISHER JORGE MURRELL M.D. Performed By: #### E SR, CBC, CMP, BNP #### [address] Leukocytes [#/volume] correc juma for nucleated erythrocytes in Blood by Automated counOrdered By: Kadie Jones on 02-14-2024 WBC corrected for nucl RBC Auto (Bld) [#/Vol] 13.6 10*3/uL 3.8-11.6 [facility] Leukocytes [#/volume] in Blo od by Automated countOrdered By: Kadie Jones on 02-14-2024 WBC (Bld) [#/Vol] 13.6 10*3/uL High 3.8-11.6 [facility] Comment on above: Performed By: #### S CAN CBC, LIPASE, CMP, HS TROP, MG, NORMA #### [facility] [address] Lipase [Enzymatic activity/v olume] in Serum or PlasmaOrdered By: Kadie Jones on 02-14-2024 Lipase [Catalytic activity/Vol] 6.0 U/L Low 11.0-82.0 [facility] Comment on above: Result Comment: PERF ORMED BY: [place] [address] PATHOLOGIST [employer] FINISHER JORGE MURRELL M.D. Performed By: #### S CAN CBC, LIPASE, CMP, HS TROP, MG, NORMA #### [facility] [address] [place] [address] Lymphocytes [#/volume] in Bl ood by Automated countOrdered By: Kadie Jones on 02-14-2024 Lymphocytes (Bld) [#/Vol] 3.2 10*3/uL Normal 1.00-4.8 [facility] Comment on above: Performed By: #### S CAN CBC, LIPASE, CMP, HS TROP, MG, NORMA #### [facility] [address] [place] [address] [place] Lymphocytes/100 leukocytes i n Blood by Automated countOrdered By: Kadie Jones on 02-14-2024 Lymphocytes/100 WBC (Bld) 23.7 % Normal . [facility] Comment on above: Performed By: #### S CAN CBC, LIPASE, CMP, HS TROP, MG, NORMA #### [facility] [address] [place] [address] MCH [Entitic mass] by Automa juma countOrdered By: Kadie Hungimore on 02-14-2024 MCH (RBC) [Entitic mass] 24.3 pg Low 24.7-34.3 [facility] Comment on above: Performed By: #### S CAN CBC, LIPASE, CMP, HS TROP, MG, NORMA #### [facility] [address] [place] [address] MCHC Auto (RBC) [Mass/Vol]Or dered By: Kadie Bullimore on 02-14-2024 MCHC (RBC) [Mass/Vol] 31.8 g/dL 32.0-35.0 [facility] MCV [Entitic volume] by Auto mated countOrdered By: Kadie Jones on 02-14-2024 MCV (RBC) [Entitic vol] 76.4 fL Low 80-100 [facility] Comment on above: Performed By: #### S CAN CBC, LIPASE, CMP, HS TROP, MG, NORMA #### [facility] [address] [place] [address] Magnesium [Mass/volume] in S kaveh or PlasmaOrdered By: Kadie Bullimtulio on 02-14-2024 Magnesium [Mass/Vol] 1.1 mg/dL Low 1.9-2.7 [facility] Comment on above: Performed By: #### S CAN CBC, LIPASE, CMP, HS TROP, MG, NORMA #### [facility] [address] [place] [address] Monocyte distribution width [Entitic volume] in Blood by AutomatedOrdered By: Kadie Jones on 02-14-2024 Monocyte distribution width Auto (Bld) [Entitic vol] 25.16 % 0.00-20.00 [facility] Comment on above: For adults in ED, MD W > 20.0 may be associated with a higher risk of sepsis during the first 12 hrs of hospital admission Neutrophils [#/volume] in Bl ood by Automated countOrdered By: Kadie Hungimore on 02-14-2024 Neutrophils (Bld) [#/Vol] 8.5 10*3/uL High 1.8-7.7 [facility] Comment on above: Performed By: #### S CAN CBC, LIPASE, CMP, HS TROP, MG, NORMA #### [facility] [address] [place] [address] [place] Nitrite Test strip Ql (U)Ord ered By: Kadie Jones on 02-14-2024 Nitrite Ql (U) Positive Negative [facility] No Panel InformationOrdered By: Kadie Jones on 02-14-2024 Estimated GFR (CKD-EPI) 41.325 mL/Min [facility] Creatinine Clearance (Chem 32.86 [facility] Nucleated erythrocytes [Pres ence] in Blood by Automated countOrdered By: Kadie Jones on 02-14-2024 Nucleated RBC Auto Ql (Bld) 0.1 /100{WBC} 0-0.5 [facility] Platelet adequacy [Presence] in Blood by Light microscopyOrdered By: Kadie Jones on 02-14-2024 Platelets LM Ql (Bld) Normal Normal Fir [facility] Platelet mean volume [Entiti c volume] in Blood by Automated countOrdered By: Kadie Jones on 02-14-2024 Platelet mean volume (Bld) [Entitic vol] 7.0 fL Normal 6.3-10.7 [facility] Comment on above: Performed By: #### S CAN CBC, LIPASE, CMP, HS TROP, MG, NORMA #### [facility] [address] [place] [id number] [facility] Platelet morphology finding [Identifier] in BloodOrdered By: Kadie Jones on 02-14-2024 Platelet morphology finding Nom (Bld) Normal Normal [facility] Platelets [#/volume] in Bloo d by Automated countOrdered By: Kadie Jones on 02-14-2024 Platelets (Bld) [#/Vol] 448 10*3/uL Normal 150-450 [facility] Comment on above: Performed By: #### S CAN CBC, LIPASE, CMP, HS TROP, MG, NORMA #### [facility] [address] [place] [id number] [place] Potassium [Moles/volume] in Serum or PlasmaOrdered By: Kadie Jones on 02-14-2024 Potassium [Moles/Vol] 4.0 mmol/L Normal 3.5-5.1 [facility] Comment on above: Performed By: #### S CAN CBC, LIPASE, CMP, HS TROP, MG, NORMA #### [address] Protein [Mass/volume] in Ser um or PlasmaOrdered By: Kadie Jones on 02-14-2024 Protein [Mass/Vol] 7.9 g/dL Normal 6.4-8.9 [facility] Comment on above: Performed By: #### S CAN CBC, LIPASE, CMP, HS TROP, MG, NORMA #### [address] RBC morphologyOrdered By: Jeannie Jones on 02-14-2024 RBC morphology finding Nom (Bld) Normal Normal Normal [facility] Comment on above: Performed By: #### S CAN CBC, LIPASE, CMP, HS TROP, MG, NORMA #### [address] Scan and CBCon 02-14-2024 Mean Corpuscular HGB Conc 31.8 g/dL Low 32.0-35.0 [facility] Comment on above: Performed By: #### S CAN CBC, LIPASE, CMP, HS TROP, MG, NORMA #### [address] Monocytes/100 WBC (Bld) 25.16 % High 0.00-20.00 [facility] Comment on above: Result Comment: For adults in ED, MDW > 20.0 may be associated with a higher risk of sepsis during the first 12 hrs of hospital admission Performed By: #### S CAN CBC, LIPASE, CMP, HS TROP, MG, NORMA #### [address] NRBC% 0.1 /100{WBC} Normal 0-0.5 [facility] Comment on above: Performed By: #### S CAN CBC, LIPASE, CMP, HS TROP, MG, NORMA #### [address] Platelet Estimate Normal Normal Normal [facility] Comment on above: Performed By: #### S CAN CBC, LIPASE, CMP, HS TROP, MG, NORMA #### [address] Platelet Morphology Normal Normal Normal [facility] Comment on above: Result Comment: PERF ORMED BY: [place] [address] PATHOLOGIST [employer]Y FINISHER JORGE MURRELL M.D. Performed By: #### S CAN CBC, LIPASE, CMP, HS TROP, MG, NORMA #### [address] Serum globulin measurement b y calculation (mass/volume)Ordered By: Kadie Bullimore on 02-14-2024 Globulin (S) [Mass/Vol] 4.2 g/dL Normal [facility] Comment on above: Performed By: #### S CAN CBC, LIPASE, CMP, HS TROP, MG, NORMA #### [address] Serum or plasma albumin/glob ulin mass ratioOrdered By: Kadie Bullimore on 02-14-2024 Albumin/Globulin [Mass ratio] 0.9 {ratio} [facility] Comment on above: Performed By: #### S CAN CBC, LIPASE, CMP, HS TROP, MG, NORMA #### [address] Serum or plasma anion gap de terminationOrdered By: Kadie Bullimore on 02-14-2024 Anion gap [Moles/Vol] 14.2 mmol/L Normal 6.0-15.0 [facility] Comment on above: Performed By: #### S CAN CBC, LIPASE, CMP, HS TROP, MG, NORMA #### [address] Sodium [Moles/volume] in Ser um or PlasmaOrdered By: Kadie Bullimore on 02-14-2024 Sodium [Moles/Vol] 138 mmol/L Normal 136-145 [facility] Comment on above: Performed By: #### S CAN CBC, LIPASE, CMP, HS TROP, MG, NORMA #### [facility] [address] Specific gravity Auto test s trip (U) [Rel density]Ordered By: Kadie Jones on 02-14-2024 Specific gravity (U) [Rel density] 1.024 1.001-1.03 0 [facility] Squamous epithelial cells de tection in urine sediment by light microscopyOrdered By: Kadie Jones on 02-14-2024 Epithelial cells.squamous LM Ql (Urine sed) None seen [HPF] 0-2 [facility] Troponin I High Sensitivityo n 02-14-2024 Troponin I High Sensitivity 6.5 pg/mL Normal 0.0-15.0 [facility] Comment on above: Result Comment: PERF ORMED BY: [place] [address] PATHOLOGIST FL[employer] FINISHER JORGE MURRELL M.D. Performed By: #### S CAN CBC, LIPASE, CMP, HS TROP, MG, NORMA #### [address] Troponin I.cardiac [Mass/vol ume] in Serum or Plasma by Detection limit <= 0.01 ng/Ordered By: Kadie Jones on 02-14-2024 Troponin I.cardiac DL <= 0.01 ng/mL [Mass/Vol] 6.5 pg/mL 0.0-15.0 [facility] Urea nitrogen [Mass/volume] in Serum or PlasmaOrdered By: Kadie Jones on 02-14-2024 Urea nitrogen [Mass/Vol] 18 mg/dL Normal 7-25 [facility] Comment on above: Performed By: #### S CAN CBC, LIPASE, CMP, HS TROP, MG, NORMA #### [address] Urine Cultureon 02-14-2024 Bacteria identified Cx Nom (U) ORGANISM: Klebsiella pneumoniae (O:KLEPNE) Tieton Count >100,000 Aerobic NATALIA Charge (NMIC56) SUSCEPTIBILITY [...] RESISTANT TO ALL B-LACTAM DRUGS. PERFORMED BY: [place] [address] PATHOLOGIST FL[employer] FINISHER JORGE MURRELL M.D. Normal [facility] Comment on above: Performed By: #### E SR, CBC, CMP, BNP #### [address] Urine bacteria detection by automated methodOrdered By: Kadie Jones on 02-14-2024 Bacteria Auto Ql (U) 4+ None Seen [facility] Urine clarity by refractomet ry automatedOrdered By: Kadie Jones on 02-14-2024 Clarity Refractometry automated (U) Clear Clear [facility] Urine culture routineOrdered By: Kadie Jones on 02-14-2024 Bacteria identified Cx Nom (U) Klebsiella pneumoniae [facility] Urine glucose measurement by automated test strip (mass/volume)Ordered By: Kadie Jones on 02-14-2024 Glucose Auto test strip (U) [Mass/Vol] Normal mg/dL Normal [facility] Urine hemoglobin detection b y automated test stripOrdered By: Kadie Jones on 02-14-2024 Hemoglobin Auto test strip Ql (U) Trace Negative [facility] Urine leukocyte esterase det ection by automated test stripOrdered By: Kadie Jones on 02-14-2024 Leukocyte esterase Auto test strip Ql (U) 3+ Negative [facility] Urine pH measurement by auto mated test stripOrdered By: Kadie Jones on 02-14-2024 pH (U) 5.5 [pH] Normal 5.0-9.0 [facility] Comment on above: Order Comment: Name Collection Type:: Straight Catheter Performed By: #### E SR, CBC, CMP, BNP #### [facility] [address] Urine protein measurement by automated test strip (mass/volume)Ordered By: Kadie Jones on 02-14-2024 Protein (U) [Mass/Vol] 30 mg/dL High Negative [facility] Comment on above: Order Comment: Name Collection Type:: Straight Catheter Performed By: #### E SR, CBC, CMP, BNP #### [facility] [address] [place] [id number] [facility] Urobilinogen Auto test strip (U) [Mass/Vol]Ordered By: Kadie Jones on 02-14-2024 Urobilinogen (U) [Mass/Vol] Normal mg/dL Normal [facility] XR chest 1V portableon 02-13 XR chest 1V portable [facility] [place] [address] [place] [address] XRay Report Signed Patient: Gera Perdue MR#: [id number] : 1945 Acct:[id number] Age/Sex: 78 / F ADM Date: 02/14/24 Loc: ER Room: Type: [facility] ER Attending Dr: Copies to: CHIP Greenwood [...] Bhavesh Avendaño M.D.02/14/2024 12:59 PM Dictation Location: [place] [address] Transcribed By: [facility] 02/14/24 1259 Dictated By: Bhavesh Avendaño II, MD 02/14/24 1257 Signed By: 02/14/24 1259 Normal [facility] C Urineon 02-01-2024 Bacteria identified [...] Locations R1: This test was performed at: [facility], [address] [place] [address], [id number] , , [facility] Comment on above: Performed By: #### 2 [id number] #### [facility] [address] [place] [address] [place] 01-31-2024 Forms [id number] Normal [facility] Physician Referralon 024 Physician Referral [id number] Normal [facility] Ambulatory Visit Summaryon 0 01-30-2024 Ambulatory Visit [...] Atherosclerosis of aorta Atherosclerotic heart disease of [place] coronary artery without angina pectoris Carotid stenosis [...] choosing us for your care. Antoine Garcia [facility] Patient Educationon 01-30-20 Patient Education Obstetrics and [...] this condition includes: ? Antibiotic medicine. ? Ykzg-hst-[id number] medicines to treat discomfort. ? Drinking enough [...] these instructions at home: Medicines ? Take brbn-daq-wwkzqyz and prescription medicines only as told by [...] Revie (more content not included)... 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 Salas for incontinence. Micro UA done 12/30/23. She states she thought she seen Dr. Croft before (nothing on [employer]) she just knows it was a long time ago Started at [facility] September with UTI and was transferred to [facility] in October is when they told her [...] with voice recognition artificial intelligence software, specifically [employer] and or [employer]. Substitutions may have occurred due to the [...] our office. Rx sent to [facility] in [place]. - Start antibiotics today - Send urine for culture Ordered: cephalexin, 500 mg = 1 cap(s), Oral, q12hr, X 7 day(s), # 14 cap(s), Refills(s) 0, Pharmacy: [id number], 170, cm, 01/30/24 13:39:00 EDT, [...] reevaluate after procedure Ordered: Urine Culture Orders: [id number] Measure Post Void residual urine and/or bladder capacity by US- non-imaging Urnls Dip Stick Auto w/o Microscopy POC 72944 Urnls Dip Stick Auto w/o Microscopy POC [id number] Follow-up With When Contact Information CHIP Ponce APRN, Renae Delaney, FAM, URL Additional Instruction (more content not included)... Normal [facility] Comment on above: Result Comment: Elec tronically Signed By: CHIP Ponce APRN, [place] X\.br\Date and Time Signed: 01/30/24 14:52 EDT TRANSTHORACIC ECHO (TTE) COM PLETEon 01-27-2024 TRANSTHORACIC ECHO (TTE) COMPLETE [address], [address] [address] TRANSTHORACIC ECHOCARDIOGRAM REPORT Patient Name: GERA Herminio Hernandez Physician: [id number] Seth Barnes MD, [facility] Study Date: 01/27/2024 Ordering Provider: [id number] JENNA ENGLE MRN/PID: [id number] Fellow: Nurse: Date of /Age: 1 1945 / 78 years Cushion Worker: Inessa Roche RDCS, RVT Gender: F Additional Staff: Height: 162.56 cm Admit Date: Weight: 87.09 kg Admission Status: BSA / BMI: 1.92 m2 / 32.96 kg/m2 Department Location: [facility] Blood Pressure: 126 /78 mmHg Study Type: TRANSTHORACIC ECHO (TTE) COMPLETE Diagnosis/ICD: Shortness of breath-R06.02 Indication: History of PEA-09/2023, CAD, PTCA-04/2019, COPD, HTN, Hyperlipidemia, Tobacco Abuse, Hypoxemia, Sid, CKD-Stage III, Anemia CPT Codes: Echo Complete w Full Doppler-13564 Study Detail: The following Echo studies were [...] 1.1 m/s (0.6-0.9m/s) PV Max P.5 mmHg [id number] Seth Barnes MD, FACC Electronically signed on 01/29/2024 at 7:26:59 PM Final [facility] Alanine aminotransferase [En zymatic activity/volume] in Serum or PlasmaOrdered By: Jenna Engle on 01-06-2024 ALT [Catalytic activity/Vol] 19 U/L Normal 7-52 [facility] Comment on above: Performed By: #### E SR, CBC, CMP, BNP #### [facility] [address] [place] [address] Albumin [Mass/volume] in Ser um or Plasma by Bromocresol green (BCG) dye binding methoOrdered By: Jenna Engle on 01-06-2024 Albumin BCG dye [Mass/Vol] 3.9 g/dL 3.5-5.7 [facility] Alkaline phosphatase [Enzyma tic activity/volume] in Serum or PlasmaOrdered By: Jenna Engle on 01-06-2024 ALP [Catalytic activity/Vol] 66 U/L Normal 34-104 [facility] Comment on above: Result Comment: PERF ORMED BY: [place] [address] PATHOLOGIST [employer]ISH[employer] JORGE MURRELL M.D. Performed By: #### E SR, CBC, CMP, BNP #### [address] Aspartate aminotransferase [ Enzymatic activity/volume] in Serum or PlasmaOrdered By: Jenna Engle on 01-06-2024 AST [Catalytic activity/Vol] 22 U/L Normal 13-39 [facility] Comment on above: Performed By: #### E SR, CBC, CMP, BNP #### [address] Automated basophil %Ordered By: Jenna Engle on 01-06-2024 Basophils/100 WBC (Bld) 0.4 % Normal . [facility] Comment on above: Performed By: #### E SR, CBC, CMP, BNP #### [address] Automated basophil countOrde red By: Jenna Engle on 01-06-2024 Basophils (Bld) [#/Vol] 0.1 10*3/uL Normal 0.0-0.2 [facility] Comment on above: Performed By: #### E SR, CBC, CMP, BNP #### [address] Automated blood monocyte cou ntOrdered By: Jenna Engle on 01-06-2024 Monocytes (Bld) [#/Vol] 1.2 10*3/uL High 0.0-0.8 [facility] Comment on above: Performed By: #### E SR, CBC, CMP, BNP #### [address] Automated eosinophil %Ordere d By: Jenna Engle on 01-06-2024 Eosinophils/100 WBC (Bld) 0.9 % Normal . [facility] Comment on above: Performed By: #### E SR, CBC, CMP, BNP #### [address] Automated eosinophil countOr dered By: Jenna Engle on 01-06-2024 Eosinophils (Bld) [#/Vol] 0.1 10*3/uL Normal 0.0-0.45 [facility] Comment on above: Performed By: #### E SR, CBC, CMP, BNP #### [address] Automated monocyte %Ordered By: Jenna Engle on 01-06-2024 Monocytes/100 WBC (Bld) 8.7 % Normal . [facility] Comment on above: Performed By: #### E SR, CBC, CMP, BNP #### [address] Automated neutrophil %Ordere d By: Jenna Engle on 01-06-2024 Neutrophils/100 WBC (Bld) 59.8 % Normal . [facility] Comment on above: Performed By: #### E SR, CBC, CMP, BNP #### [address] BNP ser/plasOrdered By: Gisel Engle on 01-06-2024 Natriuretic peptide B (Bld) [Mass/Vol] 358.0 pg/mL High 5-100 [facility] Comment on above: Result Comment: PERF ORMED BY: [place] [address] PATHOLOGIST [employer] JORGE MURRELL M.D. Performed By: #### E SR, CBC, CMP, BNP #### [address] Bilirubin.total [Mass/volume ] in Serum or PlasmaOrdered By: Jenna Engle on 01-06-2024 Bilirubin [Mass/Vol] 0.3 mg/dL Normal 0.3-1.0 [facility] Comment on above: Performed By: #### E SR, CBC, CMP, BNP #### [address] Calcium [Mass/volume] in Ser um or PlasmaOrdered By: Jenna Engle on 01-06-2024 Calcium [Mass/Vol] 9.5 mg/dL Normal 8.6-10.3 [facility] Comment on above: Performed By: #### E SR, CBC, CMP, BNP #### [address] Carbon dioxide, total [Moles /volume] in Serum or PlasmaOrdered By: Jenna Engle on 01-06-2024 CO2 [Moles/Vol] 31.7 mmol/L High 21.0-31.0 [facility] Comment on above: Performed By: #### E SR, CBC, CMP, BNP #### [place] [address] [place] Chloride [Moles/volume] in S kaveh or PlasmaOrdered By: Jenna Engle on 01-06-2024 Chloride [Moles/Vol] 108 mmol/L High 98-107 [facility] Comment on above: Performed By: #### E SR, CBC, CMP, BNP #### [address] Complete Blood Count Auto Di ffon 01-06-2024 Mean Corpuscular HGB Conc 31.6 g/dL Low 32.0-35.0 [facility] Comment on above: Performed By: #### E SR, CBC, CMP, BNP #### [facility] [address] [place] [address] NRBC% 0.0 /100{WBC} Normal 0-0.5 [facility] Comment on above: Performed By: #### E SR, CBC, CMP, BNP #### [facility] [address] [place] [address] Comprehensive Metabolic Pane harsha 01-06-2024 Albumin [Mass/Vol] 3.9 g/dL Normal 3.5-5.7 [facility] Comment on above: Performed By: #### E SR, CBC, CMP, BNP #### [address] GFR/1.73 sq M.predicted MDRD (S/P/Bld) [Vol rate/Area] 47.277 mL/min/{1.73_m2} Normal [facility] Comment on above: Performed By: #### E SR, CBC, CMP, BNP #### [address] Creatinine [Mass/volume] in Serum or PlasmaOrdered By: Jenna Engle on 01-06-2024 Creatinine [Mass/Vol] 1.18 mg/dL Normal 0.60-1.20 [facility] Comment on above: Performed By: #### E SR, CBC, CMP, BNP #### [address] ECG 12 Leadon 01-06-2024 [facility] Work Phone: Normal sinus rhythm at 62 bpm DC interval 170 ms QRS duration 80 ms QTc 401 ms. [facility] Work Phone: [facility] Work Phone: Erythrocyte Sedimentation Ra jami 01-06-2024 ESR (Bld) [Velocity] 34 mm/h High 0-29 [facility] Comment on above: Result Comment: PERF ORMED BY: [address] [address] PATHOLOGIST [employer]ISH[employer] JORGE MURRELL M.D. Performed By: #### E SR, CBC, CMP, BNP #### [facility] [address] Erythrocyte distribution wid th [Ratio] by Automated countOrdered By: Jenna Engle on 01-06-2024 Erythrocyte distribution width (RBC) [Ratio] 20.0 % High 11.9-15.3 [facility] Comment on above: Performed By: #### E SR, CBC, CMP, BNP #### [facility] [address] Erythrocyte sedimentation ra te by Photometric methodOrdered By: Jenna Engle on 01-06-2024 ESR Photometric method (Bld) [Velocity] 34 mm/hr 0-29 [facility] Erythrocytes [#/volume] in B lood by Automated countOrdered By: Jenna Engle on 01-06-2024 RBC (Bld) [#/Vol] 4.54 10*6/uL Normal 3.60-5.00 [facility] Comment on above: Performed By: #### E SR, CBC, CMP, BNP #### [facility] [address] [place] [address] [place] Glucose [Mass/volume] in Ser um or PlasmaOrdered By: Jenna Engle on 01-06-2024 Glucose [Mass/Vol] 85 mg/dL Normal 70-100 [facility] Comment on above: ADA recommended refe rence rangeRandom Glucose Reference Range is dependent on time and content of last meal. Glucose of more than 200 mg/dL in a nonstressed, ambulatory subject supports the diagnosis of Diabetes Mellitus. Result Comment: [place] om Glucose Reference Range is dependent on time and content of last meal. Glucose of more than 200 mg/dL in a nonstressed, ambulatory subject supports the diagnosis of Diabetes Mellitus. ADA recommended reference range Performed By: #### E SR, CBC, CMP, BNP #### [facility] [address] [place] [address] [place] Hematocrit [Volume Fraction] of Blood by Automated countOrdered By: Jenna Engle on 01-06-2024 Hematocrit (Bld) [Volume fraction] 35.7 % Normal 34.0-46.4 [facility] Comment on above: Performed By: #### E SR, CBC, CMP, BNP #### [facility] [address] Hemoglobin [Mass/volume] in BloodOrdered By: Jenna Engle on 01-06-2024 Hemoglobin (Bld) [Mass/Vol] 11.3 g/dL Low 11.8-15.4 [facility] Comment on above: Performed By: #### E SR, CBC, CMP, BNP #### [facility] [address] [place] [address] Leukocytes [#/volume] correc jmua for nucleated erythrocytes in Blood by Automated counOrdered By: Jenna Engle on 01-06-2024 WBC corrected for nucl RBC Auto (Bld) [#/Vol] 14.2 10*3/uL 3.8-11.6 [facility] Leukocytes [#/volume] in Blo od by Automated countOrdered By: Jenna Engle on 01-06-2024 WBC (Bld) [#/Vol] 14.2 10*3/uL High 3.8-11.6 [facility] Comment on above: Performed By: #### E SR, CBC, CMP, BNP #### [facility] [address] [place] [address] Lymphocytes [#/volume] in Bl ood by Automated countOrdered By: Jenna Engle on 01-06-2024 Lymphocytes (Bld) [#/Vol] 4.3 10*3/uL Normal 1.00-4.8 [facility] Comment on above: Performed By: #### E SR, CBC, CMP, BNP #### [facility] [address] [place] [address] [place] Lymphocytes/100 leukocytes i n Blood by Automated countOrdered By: Jenna Engle on 01-06-2024 Lymphocytes/100 WBC (Bld) 30.2 % Normal . [facility] Comment on above: Performed By: #### E SR, CBC, CMP, BNP #### [facility] [address] [place] [address] MCH [Entitic mass] by Automa juma countOrdered By: Jenna Engle on 01-06-2024 MCH (RBC) [Entitic mass] 24.9 pg Normal 24.7-34.3 [facility] Comment on above: Performed By: #### E SR, CBC, CMP, BNP #### [facility] [address] [place] [address] MCHC Auto (RBC) [Mass/Vol]Or dered By: Jenna Engle on 01-06-2024 MCHC (RBC) [Mass/Vol] 31.6 g/dL 32.0-35.0 [facility] MCV [Entitic volume] by Auto mated countOrdered By: Jenna Engle on 01-06-2024 MCV (RBC) [Entitic vol] 78.7 fL Low 80-100 [facility] Comment on above: Performed By: #### E SR, CBC, CMP, BNP #### [facility] [address] [place] [address] Neutrophils [#/volume] in Bl ood by Automated countOrdered By: Jenna Engle on 01-06-2024 Neutrophils (Bld) [#/Vol] 8.5 10*3/uL High 1.8-7.7 [facility] Comment on above: Performed By: #### E SR, CBC, CMP, BNP #### [facility] [address] [place] [address] No Panel InformationOrdered By: Jenna Engle on 01-06-2024 Estimated GFR (CKD-EPI) 47.277 mL/Min [facility] Creatinine Clearance (Chem N/A [facility] Nucleated erythrocytes [Pres ence] in Blood by Automated countOrdered By: Jenna Engle on 01-06-2024 Nucleated RBC Auto Ql (Bld) 0.0 /100{WBC} 0-0.5 [facility] Platelet mean volume [Entiti c volume] in Blood by Automated countOrdered By: Jenna Engle on 03-11-2024 Platelet mean volume (Bld) [Entitic vol] 7.2 fL Normal 6.3-10.7 [facility] Comment on above: Performed By: #### E SR, CBC, CMP, BNP #### [facility] [address] [place] [address] Platelets [#/volume] in Bloo d by Automated countOrdered By: Jenna Engle on 01-06-2024 Platelets (Bld) [#/Vol] 330 10*3/uL Normal 150-450 [facility] Comment on above: Performed By: #### E SR, CBC, CMP, BNP #### [facility] [address] [place] [address] Potassium [Moles/volume] in Serum or PlasmaOrdered By: Jenna Engle on 01-06-2024 Potassium [Moles/Vol] 4.5 mmol/L Normal 3.5-5.1 [facility] Comment on above: Performed By: #### E SR, CBC, CMP, BNP #### [facility] [address] [place] [address] Protein [Mass/volume] in Ser um or PlasmaOrdered By: Jenna Engle on 01-06-2024 Protein [Mass/Vol] 7.1 g/dL Normal 6.4-8.9 [facility] Comment on above: Performed By: #### E SR, CBC, CMP, BNP #### [address] Serum globulin measurement b y calculation (mass/volume)Ordered By: Jenna Engle on 01-06-2024 Globulin (S) [Mass/Vol] 3.2 g/dL [facility] Comment on above: Performed By: #### E SR, CBC, CMP, BNP #### [address] Serum or plasma albumin/glob ulin mass ratioOrdered By: Jenna Engle on 01-06-2024 Albumin/Globulin [Mass ratio] 1.2 {ratio} [facility] Comment on above: Performed By: #### E SR, CBC, CMP, BNP #### [facility] [address] Serum or plasma anion gap de terminationOrdered By: Jenna Engle on 01-06-2024 Anion gap [Moles/Vol] 8.8 mmol/L Normal 6.0-15.0 [facility] Comment on above: Performed By: #### E SR, CBC, CMP, BNP #### [facility] [address] [place] [address] [place] Sodium [Moles/volume] in Ser um or PlasmaOrdered By: Jenna Engle on 01-06-2024 Sodium [Moles/Vol] 144 mmol/L Normal 136-145 [facility] Comment on above: Performed By: #### E SR, CBC, CMP, BNP #### [facility] [address] [place] [address] Urea nitrogen [Mass/volume] in Serum or PlasmaOrdered By: Jenna Engle on 01-06-2024 Urea nitrogen [Mass/Vol] 31 mg/dL High 7-25 [facility] Comment on above: Performed By: #### E SR, CBC, CMP, BNP #### [place] [address] [place] XR chest 2V*on 01-06-2024 XR chest 2V* [facility] [place] [address] XRay Report Signed Patient: Gera Perdue MR#: [id number] : 1945 Acct:[id number] Age/Sex: 78 / F ADM Date: 01/06/24 Loc: XD Room: Type: [facility] Attending Dr: Jenna Engle MD Copies [...] Palma Jr., Rosalio01/06/2024 4:08 PM Dictation Location: [place] [address] Transcribed By: [facility] 01/06/241607 Dictated By: Rodriguez Palma Jr, DO 01/06/241607 Signed By: 01/06/24 160 Normal [facility] BASIC METABOLIC PANLon 10-23 Anion gap [Moles/Vol] 9 mmol/L Normal 5-15 [facility] Comment on above: Performed By: #### C BC, BMP, , 2776-10 #### [facility] ([id number]) [address], [address] [place] [address] Calcium [Mass/Vol] 9.1 mg/dL Normal 8.5-10.5 [facility] Comment on above: Performed By: #### C BC, BMP, , 2776-10 #### [facility] ([id number]) [address] [place] [address] Chloride [Moles/Vol] 102 mmol/L Normal 98-109 [facility] Comment on above: Performed By: #### C BC, BMP, , 2776-10 #### [facility] ([id number]) [address], [address] [place] [address] CO2 [Moles/Vol] 26 mmol/L Normal 22-[address] [facility] Comment on above: Performed By: #### C BC, BMP, , 2776-10 #### [facility] ([id number]) [address], [address] [place] [address] Creatinine [Mass/Vol] 1.08 mg/dL High 0.40-1.00 [facility] Comment on above: Result Comment: METH OD TRACEABLE TO IDMS STANDARD Performed By: #### C BC, BMP, , 2777-1 #### [facility] ([id number]) [address], [address] [place] [address] GFR/1.73 sq M.predicted among non-blacks MDRD (S/P/Bld) [Vol rate/Area] 53 mL/min/{1.73_m2} Low >[address] [facility] Comment on above: Result Comment: Reported eGFR is based on the CKD-EPI 2020 equation that does not use a race coefficient. Performed By: #### Timmy MILLIGAN [facility], , 2776-10 #### [facility] ([id number]) [address], [address] [place] [address] Glucose [Mass/Vol] 96 mg/dL Normal 65-99 [facility] Comment on above: Performed By: #### SANTOSH SALEEM, , 2776-10 #### [facility] ([id number]) [address] [address] [place] [address] Potassium [Moles/Vol] 4.4 mmol/L Normal 3.5-5.0 [facility] Comment on above: Performed By: #### Timmy MILLIGAN [facility], , 2776-10 #### [facility] ([id number]) [address], [address] [place] [address] Sodium [Moles/Vol] 137 mmol/L Normal 134-146 [facility] Comment on above: Performed By: #### SANTOSH SALEEM, , 2776-10 #### [facility] ([id number]) [address] [address] [place] [address] Urea nitrogen [Mass/Vol] 13 mg/dL Normal 5-[address] [facility] Comment on above: Performed By: #### SANTOSH SALEEM, , 2776-10 #### [facility] ([id number]) [address], [address] [place] [address] COMPLETE BLOOD COUNTon 10-23 Erythrocyte distribution width (RBC) [Ratio] 21.6 % High 11.5-15.[address] [facility] Comment on above: Performed By: #### SANTOSH SALEEM, , 2776-10 #### [facility] ([id number]) [address], [address] [place] [address] Hematocrit (Bld) [Volume fraction] 25.8 % Low 35-[address] [facility] Comment on above: Performed By: #### Timmy MILLIGAN, BMP, , 2776-10 #### [facility] ([id number]) [address], [address] [place] [address] Hemoglobin (Bld) [Mass/Vol] 8.5 g/dL Low 11.7-15.[address] [facility] Comment on above: Performed By: #### SANTOSH SALEEM, , 2776-10 #### [facility] ([id number]) [address], [address] [place] [address] MCH (RBC) [Entitic mass] 26.1 pg Low 27-[address] [facility] Comment on above: Performed By: #### Timmy MILLIGAN, BMP, , 2776-10 #### [facility] ([id number]) [address], [address] [place] [address] MCHC (RBC) [Mass/Vol] 32.9 g/dL Normal 32-36 [facility] Comment on above: Performed By: #### Timmy MILLIGAN, BMP, , 2776-10 #### [facility] ([id number]) [address], [address] [place] [address] MCV (RBC) [Entitic vol] 79 fL Low 80-[address] [facility] Comment on above: Performed By: #### Timmy MILLIGAN, BMP, , 2776-10 #### [facility] ([id number]) [address], [address] [place] [address] Platelet mean volume (Bld) [Entitic vol] 6.7 fL Low 7-[address] [facility] Comment on above: Performed By: #### SANTOSH SALEEM, , 2776-10 #### [facility] ([id number]) [address], [address] [place] [address] Platelets (Bld) [#/Vol] 551 10*3/uL High 150-[address] [facility] Comment on above: Performed By: #### SANTOSH SALEEM, , 2776-10 #### [facility] ([id number]) [address], [address] [place] [address] RBC COUNT 3.26 X10E12/L Low 3.80-5.[address] [facility] Comment on above: Performed By: #### SANTOSH SALEEM, , 2776-10 #### [facility] ([id number]) [address], [address] [place] [address] WBC (Bld) [#/Vol] 10.1 10*3/uL Normal 4.0-11.0 [facility] Comment on above: Performed By: #### SANTOSH SALEEM, , 2776-10 #### [facility] ([id number]) [address], [address] [place] [address] Calcium.ionized (Bld) [Mass/ Vol]on 10-23-2023 IONIZED CALCIUM 4.9 mg/dL Normal 4.5-5.[address] [facility] Comment on above: Performed By: #### SANTOSH SALEEM, , 2776-10 #### [facility] ([id number]) [address], [address] [place] [address] MAGNESIUMon 10-23-2023 Magnesium [Mass/Vol] 1.7 mg/dL Low 1.8-2.6 [facility] Comment on above: Performed By: #### C BC, BMP, , 2776-10 #### [facility] ([id number]) [address] [place] [address] PHOSPHORUSon 10-23-2023 Phosphate [Mass/Vol] 5.1 mg/dL High 2.4-4.9 [facility] Comment on above: Performed By: #### C BC, BMP, , 2776-10 #### [facility] ([id number]) [address], [address] [place] [address] Rheumatoid factor Nephelomet ry Qn (S)on 10-23-2023 RHEUMATOID FACTOR <10 Normal <20 [facility] Comment on above: Performed By: #### Timmy MILLIGAN, BMP, , 2776-10 #### [facility] ([id number]) [address] [place] [address] BASIC METABOLIC PANLon 10-22 Anion gap [Moles/Vol] 10 mmol/L Normal 5-15 [facility] Comment on above: Performed By: #### Timmy BC, BMP, , 2776-10 #### [facility] ([id number]) [address] [place] [address] Calcium [Mass/Vol] 8.8 mg/dL Normal 8.5-10.5 [facility] Comment on above: Performed By: #### Timmy BC, BMP, , 2776-10 #### [facility] ([id number]) [address] [place] [address] Chloride [Moles/Vol] 104 mmol/L Normal 98-109 [facility] Comment on above: Performed By: #### Timmy BC, BMP, , 2776-10 #### [facility] ([id number]) [address] [place] [address] CO2 [Moles/Vol] 25 mmol/L Normal 22-[address] [facility] Comment on above: Performed By: #### SANTOSH SALEEM, , 2776-10 #### [facility] ([id number]) [address], [address] [place] [address] Creatinine [Mass/Vol] 1.02 mg/dL High 0.40-1.00 [facility] Comment on above: Result Comment: METH OD TRACEABLE TO IDMS STANDARD Performed By: #### SANTOSH SALEEM, , 2776-10 #### [facility] ([id number]) [address], [facility] [address] [place] [address] GFR/1.73 sq M.predicted among non-blacks MDRD (S/P/Bld) [Vol rate/Area] 57 mL/min/{1.73_m2} Low >[address] [facility] Comment on above: Result Comment: Reported eGFR is based on the CKD-EPI 2020 equation that does not use a race coefficient. Performed By: #### SANTOSH SALEEM, , 2776-10 #### [facility] ([id number]) [address], [address] [place] [address] Glucose [Mass/Vol] 86 mg/dL Normal 65-99 [facility] Comment on above: Performed By: #### SANTOSH SALEEM, , 2776-10 #### [facility] ([id number]) [address] [address] [place] [address] Potassium [Moles/Vol] 4.6 mmol/L Normal 3.5-5.0 [facility] Comment on above: Performed By: #### SANTOSH SALEEM, , 2776-10 #### [facility] ([id number]) [address], [address] [place] [address] Sodium [Moles/Vol] 139 mmol/L Normal 134-146 [facility] Comment on above: Performed By: #### C BC, [facility], , 2776-10 #### [facility] ([id number]) [address], [address] [place] [address] Urea nitrogen [Mass/Vol] 13 mg/dL Normal 5-[address] [facility] Comment on above: Performed By: #### Timmy BC, BMP, , 2776-10 #### [facility] ([id number]) [address], [facility] [address] [place] [address] COMPLETE BLOOD COUNTon 10-22 Erythrocyte distribution width (RBC) [Ratio] 22.2 % High 11.5-15.[address] [facility] Comment on above: Performed By: #### Timmy MILLIGAN, [facility], , 2776-10 #### [facility] ([id number]) [address] [facility] [address] [place] [address] Hematocrit (Bld) [Volume fraction] 25.7 % Low 35-[address] [facility] Comment on above: Performed By: #### Timmy MILLIGAN, [facility], , 2776-10 #### [facility] ([id number]) [address], [facility] [address] [place] [address] Hemoglobin (Bld) [Mass/Vol] 8.2 g/dL Low 11.7-15.[address] [facility] Comment on above: Performed By: #### Timmy MILLIGAN, [facility], , 2776-10 #### [facility] ([id number]) [address], [address] [place] [address] MCH (RBC) [Entitic mass] 26.2 pg Low 27-[address] [facility] Comment on above: Performed By: #### Timmy BC, BMP, , 2776-10 #### [facility] ([id number]) [address], [address] [place] [address] MCHC (RBC) [Mass/Vol] 32.1 g/dL Normal 32-36 [facility] Comment on above: Performed By: #### SANTOSH SALEEM, , 2776-10 #### [facility] ([id number]) [address], [address] [place] [address] MCV (RBC) [Entitic vol] 82 fL Normal 80-[address] [facility] Comment on above: Performed By: #### SANTOSH SALEEM, , 2776-10 #### [facility] ([id number]) [address], [facility] [address] [place] [address] Platelet mean volume (Bld) [Entitic vol] 6.7 fL Low 7-[address] [facility] Comment on above: Performed By: #### SANTOSH SALEEM, , 2776-10 #### [facility] ([id number]) [address], [address] [place] [address] Platelets (Bld) [#/Vol] 533 10*3/uL High 150-[address] [facility] Comment on above: Performed By: #### Timmy MILLIGAN, SANTOSH, , 2776-10 #### [facility] ([id number]) [address], [address] [place] [address] RBC COUNT 3.14 X10E12/L Low 3.80-5.[address] [facility] Comment on above: Performed By: #### Timmy MILLIGAN, SANTOSH, , 2776-10 #### [facility] ([id number]) [address], [address] [place] [address] WBC (Bld) [#/Vol] 9.7 10*3/uL Normal 4.0-11.0 [facility] Comment on above: Performed By: #### Timmy MILLIGAN, SANTOSH, , 2776-10 #### [facility] ([id number]) [address], [address] [place] [address] Calcium.ionized (Bld) [Mass/ Vol]on 10-22-2023 IONIZED CALCIUM 4.9 mg/dL Normal 4.5-5.[address] [facility] Comment on above: Performed By: #### SANTOSH SALEEM, , 2776-10 #### [facility] ([id number]) [address], [address] [place] [address] Glucose Glucometer (BldC) [M ass/Vol]on 10-22-2023 Glucose [Mass/Vol] 97 mg/dL Normal 65-99 [facility] MAGNESIUMon 10-22-2023 Magnesium [Mass/Vol] 2.1 mg/dL Normal 1.8-2.6 [facility] Comment on above: Performed By: #### SANTOSH SALEEM, , 2776-10 #### [facility] ([id number]) [address], [address] [place] [address] PHOSPHORUSon 10-22-2023 Phosphate [Mass/Vol] 4.9 mg/dL Normal 2.4-4.9 [facility] Comment on above: Performed By: #### SANTOSH SALEEM, , 2776-10 #### [facility] ([id number]) [address], [address] [place] [address] BASIC METABOLIC PANLon 10-21 Anion gap [Moles/Vol] 7 mmol/L Normal 5-15 [facility] Comment on above: Performed By: #### SANTOSH SALEEM, , 2776-10 ####[facility] ([id number])[address], [address], [place] [address] Calcium [Mass/Vol] 9.0 mg/dL Normal 8.5-10.5 [facility] Comment on above: Performed By: #### SANTOSH SALEEM, , 2776-10 ####[facility] ([id number])[address], [address], [place] [address] Chloride [Moles/Vol] 104 mmol/L Normal 98-109 [facility] Comment on above: Performed By: #### C SRINI, [facility], , 2776-10 ####[facility] ([id number])[address], [address], [place] [address] CO2 [Moles/Vol] 26 mmol/L Normal 22-[address] [facility] Comment on above: Performed By: #### C SRINI [facility], , 2776-10 ####[facility] ([id number])[address], [address], [place] [address] Creatinine [Mass/Vol] 1.06 mg/dL High 0.40-1.00 [facility] Comment on above: Result Comment: METH OD TRACEABLE TO IDMS STANDARD Performed By: #### Timmy MILLIGAN [facility], , 2776-10 ####[facility] ([id number])[address] [address] [place] [address] GFR/1.73 sq M.predicted among non-blacks MDRD (S/P/Bld) [Vol rate/Area] 54 mL/min/{1.73_m2} Low >[address] [facility] Comment on above: Result Comment: Reported eGFR is based on the CKD-EPI 2020 equation that does not use a race coefficient. Performed By: #### C SRINI [facility], , 2776-10 ####[facility] ([id number])[address] [address], [place] [address] Glucose [Mass/Vol] 88 mg/dL Normal 65-99 [facility] Comment on above: Performed By: #### Timmy MILLIGAN, SANTOSH, , 2776-10 ####[facility] ([id number])[address] [address], [place] [address] Potassium [Moles/Vol] 4.5 mmol/L Normal 3.5-5.0 [facility] Comment on above: Performed By: #### C SRINI, [facility], , 2776-10 ####[facility] ([id number])[address], [address], [place] [address] Sodium [Moles/Vol] 137 mmol/L Normal 134-146 [facility] Comment on above: Performed By: #### C SRINI, [facility], , 2776-10 ####[facility] ([id number])[address], [address], [place] [address] Urea nitrogen [Mass/Vol] 12 mg/dL Normal 5-[address] [facility] Comment on above: Performed By: #### Timmy MILLIGAN, [facility], , 2776-10 ####[facility] ([id number])[address], [address], [place] [address] COMPLETE BLOOD COUNTon 10-21 Erythrocyte distribution width (RBC) [Ratio] 22.0 % High 11.5-15.[address] [facility] Comment on above: Performed By: #### Timmy MILLIGAN, [facility], , 2776-10 ####[facility] ([id number])[address] [address], [place] [address] Hematocrit (Bld) [Volume fraction] 26.3 % Low 35-[address] [facility] Comment on above: Performed By: #### Timmy BC, BMP, , 2776-10 ####[facility] ([id number])[address] [address], [place] [address] Hemoglobin (Bld) [Mass/Vol] 8.5 g/dL Low 11.7-15.[address] [facility] Comment on above: Performed By: #### C SRINI, BMP, , 2776-10 ####[facility] ([id number])[address], [address] [place] [address] MCH (RBC) [Entitic mass] 26.2 pg Low 27-[address] [facility] Comment on above: Performed By: #### C SRINI, BMP, , 2776-10 ####[facility] ([id number])[address], [address] [place] [address] MCHC (RBC) [Mass/Vol] 32.4 g/dL Normal 32-36 [facility] Comment on above: Performed By: #### C SRINI, BMP, , 2776-10 ####[facility] ([id number])[address], [address] [place] [address] MCV (RBC) [Entitic vol] 81 fL Normal 80-[address] [facility] Comment on above: Performed By: #### Tmimy MILLIGAN, BMP, , 2776-10 ####[facility] ([id number])[address], [address], [place] [address] Platelet mean volume (Bld) [Entitic vol] 6.8 fL Low 7-[address] [facility] Comment on above: Performed By: #### Timmy MILLIGAN, BMP, , 2776-10 ####[facility] ([id number])[address], [address] [place] [address] Platelets (Bld) [#/Vol] 611 10*3/uL High 150-[address] [facility] Comment on above: Performed By: #### Timmy MILLIGAN, BMP, , 2776-10 ####[facility] ([id number])[address], [address] [place] [address] RBC COUNT 3.25 X10E12/L Low 3.80-5.[address] [facility] Comment on above: Performed By: #### Timmy MILLIGAN, BMP, , 2776-10 ####[facility] ([id number])[address], [address] [place] [address] WBC (Bld) [#/Vol] 10.0 10*3/uL Normal 4.0-11.0 [facility] Comment on above: Performed By: #### C BC, BMP, 00895-6, 2777-1 ####[facility] ([id number])[address], [address] [place] [address] CRP [Mass/Vol]on 10-21-2023 C REACTIVE PROTEIN 6.5 mg/dL High 0.000-0.7 [address] [facility] Comment on above: Performed By: #### 3 8230-9 #### [facility] ([id number]) [address], [address] [place] [address] Calcium.ionized (Bld) [Mass/ Vol]on 10-21-2023 IONIZED CALCIUM 4.9 mg/dL Normal 4.5-5.[address] [facility] Comment on above: Performed By: #### 3 8230-9 #### [facility] ([id number]) [address], [address] [address] ESR Photometric method (Bld) [Velocity]on 10-21-2023 ESR, ERYTHROCYTE SEDIMENTATION RATE 74 mm/h High 0-[address] [facility] Comment on above: Performed By: #### 3 8230-9 #### [facility] ([id number]) [address], [address] [address] Glucose Glucometer (BldC) [M ass/Vol]on 10-21-2023 Glucose [Mass/Vol] 124 mg/dL High 65-99 [facility] Glucose [Mass/Vol] 135 mg/dL High 65-99 [facility] Glucose [Mass/Vol] 126 mg/dL High 65-99 [facility] Glucose [Mass/Vol] 91 mg/dL Normal 65-99 [facility] MAGNESIUMon 10-21-2023 Magnesium [Mass/Vol] 2.6 mg/dL Normal 1.8-2.6 [facility] Comment on above: Performed By: #### 3 8230-9 #### [facility] ([id number]) [address], [address] [place] [address] Magnesium [Mass/Vol] 1.9 mg/dL Normal 1.8-2.6 [facility] Comment on above: Performed By: #### C SANTOSH MILLIGAN, , 2777-1 ####[facility] ([id number])[address], [address], [place] [address] PHOSPHORUSon 10-21-2023 Phosphate [Mass/Vol] 4.3 mg/dL Normal 2.4-4.9 [facility] Comment on above: Performed By: #### 3 8230-9 #### [facility] ([id number]) [address], [address] [place] [address] XR WRIST LT MIN 3 VWSon - [...] Morin MD on 10/21/2023 10:28 AM Normal [facility] BASIC METABOLIC PANLon 10-20 Anion gap [Moles/Vol] 7 mmol/L Normal 5-15 [facility] Comment on above: Performed By: #### C SRINI, BMP, , 2777-1 ####[facility] ([id number])[address], [address], [place] [address] Calcium [Mass/Vol] 8.6 mg/dL Normal 8.5-10.5 [facility] Comment on above: Performed By: #### C SRINI, SANTOSH, , 2776-10 ####[facility] ([id number])[address], [address], [place] [address] Chloride [Moles/Vol] 107 mmol/L Normal 98-109 [facility] Comment on above: Performed By: #### Timmy MILLIGAN, SANTOSH, , 2776-10 ####[facility] ([id number])[address], [address], [place] [address] CO2 [Moles/Vol] 25 mmol/L Normal 22-[address] [facility] Comment on above: Performed By: #### SANTOSH SALEEM, , 2776-10 ####[facility] ([id number])[address], [facility] [address], [place] [address] Creatinine [Mass/Vol] 1.16 mg/dL High 0.40-1.00 [facility] Comment on above: Result Comment: METH OD TRACEABLE TO IDMS STANDARD Performed By: #### C SANTOSH MILLIGAN, , 2776-10 ####[facility] ([id number])[address] [address] GFR/1.73 sq M.predicted among non-blacks MDRD (S/P/Bld) [Vol rate/Area] 49 mL/min/{1.73_m2} Low >[address] [facility] Comment on above: Result Comment: Reported eGFR is based on the CKD-EPI 2020 equation that does not use a race coefficient. Performed By: #### C SRINI, SANTOSH, , 2776-10 ####[facility] ([id number])[address] [address], [place] [address] Glucose [Mass/Vol] 80 mg/dL Normal 65-99 [facility] Comment on above: Performed By: #### Timmy MILLIGAN, SANTOSH, , 2777-1 ####[facility] ([id number])[address], [address] [place] [address] Potassium [Moles/Vol] 4.6 mmol/L Normal 3.5-5.0 [facility] Comment on above: Performed By: #### C SRINI BMP, , 2776-10 ####[facility] ([id number])[address], [address] [place] [address] Sodium [Moles/Vol] 139 mmol/L Normal 134-146 [facility] Comment on above: Performed By: #### Timmy MILLIGAN, BMP, , 2776-10 ####[facility] ([id number])[address] [address], [place] [address] Urea nitrogen [Mass/Vol] 12 mg/dL Normal 5-[address] [facility] Comment on above: Performed By: #### Timmy MILLIGAN BMP, , 2776-10 ####[facility] ([id number])[address] [address], [place] [address] COMPLETE BLOOD COUNTon 10-20 Erythrocyte distribution width (RBC) [Ratio] 22.5 % High 11.5-15.[address] [facility] Comment on above: Performed By: #### SANTOSH SALEEM, , 2776-10 ####[facility] ([id number])[address] [address], [place] [address] Hematocrit (Bld) [Volume fraction] 24.8 % Low 35-[address] [facility] Comment on above: Performed By: #### Timmy MILLIGAN, BMP, , 2776-10 ####[facility] ([id number])[address] [address] [place] [address] Hemoglobin (Bld) [Mass/Vol] 8.1 g/dL Low 11.7-15.[address] [facility] Comment on above: Performed By: #### Timmy MILLIGAN BMP, , 2776-10 ####[facility] ([id number])[address], [address] [place] [address] MCH (RBC) [Entitic mass] 26.2 pg Low 27-[address] [facility] Comment on above: Performed By: #### Timmy MILLIGAN, [facility], , 2776-10 ####[facility] ([id number])[address], [address] [place] [address] MCHC (RBC) [Mass/Vol] 32.4 g/dL Normal 32-36 [facility] Comment on above: Performed By: #### Timmy MILLIGAN, SANTOSH, , 2776-10 ####[facility] ([id number])[address] [address] [place] [address] MCV (RBC) [Entitic vol] 81 fL Normal 80-[address] [facility] Comment on above: Performed By: #### SANTOSH SALEEM, , 2776-10 ####[facility] ([id number])[address] [address] [place] [address] Platelet mean volume (Bld) [Entitic vol] 6.7 fL Low 7-[address] [facility] Comment on above: Performed By: #### SANTOSH SALEEM, , 2776-10 ####[facility] ([id number])[address] [address] [place] [address] Platelets (Bld) [#/Vol] 554 10*3/uL High 150-[address] [facility] Comment on above: Performed By: #### Timmy MILLIGAN, BMP, , 2776-10 ####[facility] ([id number])[address] [address], [place] [address] RBC COUNT 3.08 X10E12/L Low 3.80-5.[address] [facility] Comment on above: Performed By: #### SANTOSH SALEEM, , 2776-10 ####[facility] ([id number])[address], [address] [place] [address] WBC (Bld) [#/Vol] 9.3 10*3/uL Normal 4.0-11.0 [facility] Comment on above: Performed By: #### SANTOSH SALEEM, , 2776-10 ####[facility] ([id number])[address], [address] [place] [address] Glucose Glucometer (BldC) [M ass/Vol]on 10-20-2023 Glucose [Mass/Vol] 108 mg/dL High 65-99 [facility] Glucose [Mass/Vol] 115 mg/dL High 65-99 [facility] Glucose [Mass/Vol] 140 mg/dL High 65-99 [facility] Glucose [Mass/Vol] 94 mg/dL Normal 65-99 [facility] MAGNESIUMon 10-20-2023 Magnesium [Mass/Vol] 1.7 mg/dL Low 1.8-2.6 [facility] Comment on above: Performed By: #### SANTOSH SALEEM, , 2776-10 ####[facility] ([id number])[address], [place] [address] PHOSPHORUSon 10-20-2023 Phosphate [Mass/Vol] 4.2 mg/dL Normal 2.4-4.9 [facility] Comment on above: Performed By: #### SANTOSH SALEEM, , 2776-10 ####[facility] ([id number])[address], [address] [place] [address] BASIC METABOLIC PANLon 10-19 Anion gap [Moles/Vol] 8 mmol/L Normal 5-15 [facility] Comment on above: Performed By: #### SANTOSH SALEEM, , 2776-10 ####[facility] ([id number])[address] [address] [place] [address] Calcium [Mass/Vol] 8.3 mg/dL Low 8.5-10.5 [facility] Comment on above: Performed By: #### C SRINI, SANTOSH, , 2776-10 ####[facility] ([id number])[address], [place] [address] Chloride [Moles/Vol] 107 mmol/L Normal 98-109 [facility] Comment on above: Performed By: #### SANTOSH SALEEM, , 2776-10 ####[facility] ([id number])[address] [address], [place] [address] CO2 [Moles/Vol] 24 mmol/L Normal 22-[address] [facility] Comment on above: Performed By: #### SANTOSH SALEEM, , 2776-10 ####[facility] ([id number])[address] [address] Creatinine [Mass/Vol] 1.05 mg/dL High 0.40-1.00 [facility] Comment on above: Result Comment: METH OD TRACEABLE TO IDMS STANDARD Performed By: #### Timmy MILLIGAN, SANTOSH, , 2776-10 ####[facility] ([id number])[address] [address] GFR/1.73 sq M.predicted among non-blacks MDRD (S/P/Bld) [Vol rate/Area] 55 mL/min/{1.73_m2} Low >[address] [facility] Comment on above: Result Comment: Reported eGFR is based on the CKD-EPI 2020 equation that does not use a race coefficient. Performed By: #### Timmy MILLIGAN, BMP, , 2776-10 ####[facility] ([id number])[address] [address] [place] [address] Glucose [Mass/Vol] 82 mg/dL Normal 65-99 [facility] Comment on above: Performed By: #### Timmy MILLIGAN, SANTOSH, , 2776-10 ####[facility] ([id number])[address], [place] [address] Potassium [Moles/Vol] 4.3 mmol/L Normal 3.5-5.0 [facility] Comment on above: Performed By: #### C SRINI, BMP, , 2776-10 ####[facility] ([id number])[address] [place] [address] Sodium [Moles/Vol] 139 mmol/L Normal 134-146 [facility] Comment on above: Performed By: #### Timmy MILLIGAN, SANTOSH, , 2776-10 ####[facility] ([id number])[address], [place] [address] Urea nitrogen [Mass/Vol] 10 mg/dL Normal 5-[address] [facility] Comment on above: Performed By: #### Timmy MILLIGAN, SANTOSH, , 2776-10 ####[facility] ([id number])[address] [address], [place] [address] COMPLETE BLOOD COUNTon 10-19 Erythrocyte distribution width (RBC) [Ratio] 22.7 % High 11.5-15.[address] [facility] Comment on above: Performed By: #### Timmy MILLIGAN, BMP, , 2776-10 ####[facility] ([id number])[address] [address], [place] [address] Hematocrit (Bld) [Volume fraction] 24.4 % Low 35-[address] [facility] Comment on above: Performed By: #### Timmy MILLIGAN, BMP, , 2776-10 ####[facility] ([id number])[address], [place] [address] Hemoglobin (Bld) [Mass/Vol] 7.8 g/dL Low 11.7-15.[address] [facility] Comment on above: Performed By: #### Timmy MILLIGAN, SANTOSH, , 2776-10 ####[facility] ([id number])[address], [place] [address] MCH (RBC) [Entitic mass] 25.9 pg Low 27-[address] [facility] Comment on above: Performed By: #### Timmy MILLIGAN, SANTOSH, , 2776-10 ####[facility] ([id number])[address] [address], [place] [address] MCHC (RBC) [Mass/Vol] 31.8 g/dL Low 32-36 [facility] Comment on above: Performed By: #### SANTOSH SALEEM, , 2776-10 ####[facility] ([id number])[address] [address] [place] [address] MCV (RBC) [Entitic vol] 82 fL Normal 80-[address] [facility] Comment on above: Performed By: #### SANTOSH SALEEM, , 2776-10 ####[facility] ([id number])[address] [address] [place] [address], [place] [address] Platelet mean volume (Bld) [Entitic vol] 6.6 fL Low 7-[address] [facility] Comment on above: Performed By: #### Timmy MILLIGAN, SANTOSH, , 2776-10 ####[facility] ([id number])[address] [address] [facility] [place] [address] Platelets (Bld) [#/Vol] 533 10*3/uL High 150-[address] [facility] Comment on above: Performed By: #### Timmy MILLIGAN, BMP, , 2776-10 ####[facility] ([id number])[address], [place] [address] RBC COUNT 2.99 X10E12/L Low 3.80-5.[address] [facility] Comment on above: Performed By: #### C SANTOSH MILLIGAN, , 2776-10 ####[facility] ([id number])[address], [address] [place] [address] WBC (Bld) [#/Vol] 9.9 10*3/uL Normal 4.0-11.0 [facility] Comment on above: Performed By: #### C SANTOSH MILLIGAN, , 2776-10 ####[facility] ([id number])[address], [address] [place] [address] Calcium.ionized (Bld) [Mass/ Vol]on 10-19-2023 IONIZED CALCIUM 4.9 mg/dL Normal 4.5-5.[address] [facility] Comment on above: Performed By: #### 3 8230-9 ####[facility] ([id number])[address], [address] [place] [address] Glucose Glucometer (BldC) [M ass/Vol]on 10-19-2023 Glucose [Mass/Vol] 102 mg/dL High 65-99 [facility] Glucose [Mass/Vol] 117 mg/dL High 65-99 [facility] Glucose [Mass/Vol] 103 mg/dL High 65-99 [facility] MAGNESIUMon 10-19-2023 Magnesium [Mass/Vol] 2.0 mg/dL Normal 1.8-2.6 [facility] Comment on above: Performed By: #### C SANTOSH MILLIGAN, , 2776-10 ####[facility] ([id number])[address], [place] [address] PHOSPHORUSon 10-19-2023 Phosphate [Mass/Vol] 4.3 mg/dL Normal 2.4-4.9 [facility] Comment on above: Performed By: #### C BC, BMP, , 2776-10 ####[facility] ([id number])[address], [place] [address] BASIC METABOLIC PANLon 10-18 Anion gap [Moles/Vol] 10 mmol/L Normal 5-15 [facility] Comment on above: Performed By: #### C BC, BMP, , 2776-10, 3083-10 ####[facility] ([id number])[address], [address], [place] [address] Calcium [Mass/Vol] 8.5 mg/dL Normal 8.5-10.5 [facility] Comment on above: Performed By: #### Timmy BC, BMP, , 2776-10, 3083- ####[facility] ([id number])[address], [address], [place] [address] Chloride [Moles/Vol] 107 mmol/L Normal 98-109 [facility] Comment on above: Performed By: #### Timmy BC, BMP, , 2776-10, 3083-10 ####[facility] ([id number])[address], [address], [place] [address] CO2 [Moles/Vol] 23 mmol/L Normal 22-[address] [facility] Comment on above: Performed By: #### Timmy BC, BMP, , 2776-10, 3083- ####[facility] ([id number])[address], [address], [place] [address] Creatinine [Mass/Vol] 1.17 mg/dL High 0.40-1.00 [facility] Comment on above: Result Comment: METH OD TRACEABLE TO IDMS STANDARD Performed By: #### C BC, BMP, , 2776-10, 3083-10 ####[facility] ([id number])[address] [address] GFR/1.73 sq M.predicted among non-blacks MDRD (S/P/Bld) [Vol rate/Area] 48 mL/min/{1.73_m2} Low >[address] [facility] Comment on above: Result Comment: Reported eGFR is based on the CKD-EPI 2020 equation that does not use a race coefficient. Performed By: #### Timmy BC, BMP, , 2776-10, 3083-10 ####[facility] ([id number])[address] [address] Glucose [Mass/Vol] 82 mg/dL Normal 65-99 [facility] Comment on above: Performed By: #### Timmy MILLIGAN, BMP, , 2776-10, 3083-10 ####[facility] ([id number])[address] [address] Potassium [Moles/Vol] 4.0 mmol/L Normal 3.5-5.0 [facility] Comment on above: Performed By: #### Timmy MILLIGAN, BMP, , 2776-10, 3083-10 ####[facility] ([id number])[address] [address] Sodium [Moles/Vol] 140 mmol/L Normal 134-146 [facility] Comment on above: Performed By: #### Timmy BC, BMP, , 2776-10, 3083-10 ####[facility] ([id number])[address] [address] Urea nitrogen [Mass/Vol] 11 mg/dL Normal 5-[address] [facility] Comment on above: Performed By: #### Timmy BC, BMP, , 2776-10, 3083-10 ####[facility] ([id number])[address], [address], [place] [address] COMPLETE BLOOD COUNTon 10-18 Erythrocyte distribution width (RBC) [Ratio] 21.2 % High 11.5-15.[address] [facility] Comment on above: Performed By: #### C BC, BMP, , 2776-10, 3083- ####[facility] ([id number])[address], [address], [place] [address] Hematocrit (Bld) [Volume fraction] 24.6 % Low 35-[address] [facility] Comment on above: Performed By: #### C BC, BMP, , 2776-10, 3083- ####[facility] ([id number])[address], [address], [place] [address] Hemoglobin (Bld) [Mass/Vol] 7.9 g/dL Low 11.7-15.[address] [facility] Comment on above: Performed By: #### C SRINI, BMP, , 2776-10, 3083- ####[facility] ([id number])[address], [address], [place] [address] MCH (RBC) [Entitic mass] 26.2 pg Low 27-[address] [facility] Comment on above: Performed By: #### Timmy BC, BMP, , 2776-10, 3083- ####[facility] ([id number])[address], [address], [place] [address] MCHC (RBC) [Mass/Vol] 32.2 g/dL Normal 32-36 [facility] Comment on above: Performed By: #### C BC, BMP, , 2776-10, 3083-1 ####[facility] ([id number])[address], [address] [place] [address] MCV (RBC) [Entitic vol] 81 fL Normal 80-[address] [facility] Comment on above: Performed By: #### C SRINI, BMP, , 2776-10, 3083-10 ####[facility] ([id number])[address], [address] [place] [address] Platelet mean volume (Bld) [Entitic vol] 6.5 fL Low 7-[address] [facility] Comment on above: Performed By: #### Timmy MILLIGAN, BMP, , 2776-10, 3083- ####[facility] ([id number])[address] [address] Platelets (Bld) [#/Vol] 522 10*3/uL High 150-[address] [facility] Comment on above: Performed By: #### Timmy MILLIGAN, BMP, , 2776-10, 3083- ####[facility] ([id number])[address] [address] RBC COUNT 3.03 X10E12/L Low 3.80-5.[address] [facility] Comment on above: Performed By: #### Timmy MILLIGAN, BMP, , 2776-10, 3083-10 ####[facility] ([id number])[address] [address] WBC (Bld) [#/Vol] 9.3 10*3/uL Normal 4.0-11.0 [facility] Comment on above: Performed By: #### Timmy MILLIGAN, BMP, , 2776-10, 3083- ####[facility] ([id number])[address] [address] Calcium.ionized (Bld) [Mass/ Vol]on 10-18-2023 IONIZED CALCIUM 4.9 mg/dL Normal 4.5-5.[address] [facility] Comment on above: Performed By: #### 3 8230-9 ####[facility] ([id number])[address], [place] [address] Glucose Glucometer (BldC) [M ass/Vol]on 10-18-2023 Glucose [Mass/Vol] 108 mg/dL High 65-99 [facility] Glucose [Mass/Vol] 134 mg/dL High 65-99 [facility] Glucose [Mass/Vol] 127 mg/dL High 65-99 [facility] Glucose [Mass/Vol] 102 mg/dL High 65-99 [facility] MAGNESIUMon 10-18-2023 Magnesium [Mass/Vol] 1.7 mg/dL Low 1.8-2.6 [facility] Comment on above: Performed By: #### C BC, BMP, [address]-2, 2777-1, 3084-1 ####[facility] ([id number])[address], [address] [place] [address] MR CERVICAL SPINE WO CONTon 10-18-2023 MR [...] William MD on 10/18/2023 2:39 AM Normal [facility] MR LUMBAR SPINE WO CONTon MR [...] William MD on 10/18/2023 3:37 AM Normal [facility] MR THORACIC SPINE WO CONTon 10-18-2023 [...] William MD on 10/18/2023 3:25 AM Normal [facility] PHOSPHORUSon 10-18-2023 Phosphate [Mass/Vol] 4.1 mg/dL Normal 2.4-4.9 [facility] Comment on above: Performed By: #### C SRINI, BMP, 67143-9, 2777-1, 3084-1 ####[facility] ([id number])[address] [address] URIC ACIDon 10-18-2023 Urate [Mass/Vol] 4.7 mg/dL Normal 2.6-7.2 [facility] Comment on above: Performed By: #### C SRINI, BMP, [address]-4, 2777-1, 3084-1 ####[facility] ([id number])[address], [address] [place] [address] XR WRIST RT 2 VWSon 10-18-20 23 [...] Rod MD on 10/18/2023 2:24 PM Normal [facility] BASIC METABOLIC PANLon 10-17 Anion gap [Moles/Vol] 8 mmol/L Normal 5-15 [facility] Comment on above: Performed By: #### 1 7928-3 #### [facility] ([id number]) [address] [address] [place] [address] Calcium [Mass/Vol] 8.5 mg/dL Normal 8.5-10.5 [facility] Comment on above: Performed By: #### 1 7928-3 #### [facility] ([id number]) [address], [address] [place] [address] Chloride [Moles/Vol] 105 mmol/L Normal 98-109 [facility] Comment on above: Performed By: #### 1 7928-3 #### [facility] ([id number]) [address], [address] [place] [address] CO2 [Moles/Vol] 24 mmol/L Normal 22-[address] [facility] Comment on above: Performed By: #### 1 7928-3 #### [facility] ([id number]) [address], [address] [place] [address] Creatinine [Mass/Vol] 1.03 mg/dL High 0.40-1.00 [facility] Comment on above: Result Comment: METH OD TRACEABLE TO IDMS STANDARD Performed By: #### 1 7928-3 #### [facility] ([id number]) [address] [address] [place] [address] GFR/1.73 sq M.predicted among non-blacks MDRD (S/P/Bld) [Vol rate/Area] 56 mL/min/{1.73_m2} Low >[address] [facility] Comment on above: Result Comment: Reported eGFR is based on the CKD-EPI 2020 equation that does not use a race coefficient. Performed By: #### 1 7928-3 #### [facility] ([id number]) [address], [address] [place] [address] Glucose [Mass/Vol] 88 mg/dL Normal 65-99 [facility] Comment on above: Performed By: #### 1 7928-3 #### [facility] ([id number]) [address], [address] [place] [address] Potassium [Moles/Vol] 4.2 mmol/L Normal 3.5-5.0 [facility] Comment on above: Performed By: #### 1 7928-3 #### [facility] ([id number]) [address], [address] [place] [address] Sodium [Moles/Vol] 137 mmol/L Normal 134-146 [facility] Comment on above: Performed By: #### 1 7928-3 #### [facility] ([id number]) [address], [address] [place] [address] Urea nitrogen [Mass/Vol] 13 mg/dL Normal 5-[address] [facility] Comment on above: Performed By: #### 1 7928-3 #### [facility] ([id number]) [address], [address] [place] [address] COMPLETE BLOOD COUNTon 10-17 Erythrocyte distribution width (RBC) [Ratio] 21.4 % High 11.5-15.[address] [facility] Comment on above: Performed By: #### 1 7928-3 #### [facility] ([id number]) [address], [address] [place] [address] Hematocrit (Bld) [Volume fraction] 25.0 % Low 35-[address] [facility] Comment on above: Performed By: #### 1 7928-3 #### [facility] ([id number]) [address], [address] [place] [address] Hemoglobin (Bld) [Mass/Vol] 7.9 g/dL Low 11.7-15.[address] [facility] Comment on above: Performed By: #### 1 7928-3 #### [facility] ([id number]) [address], [address] [place] [address] MCH (RBC) [Entitic mass] 25.4 pg Low 27-[address] [facility] Comment on above: Performed By: #### 1 7928-3 #### [facility] ([id number]) [address], [address] [place] [address] MCHC (RBC) [Mass/Vol] 31.4 g/dL Low 32-36 [facility] Comment on above: Performed By: #### 1 7928-3 #### [facility] ([id number]) [address], [address] [place] [address] MCV (RBC) [Entitic vol] 81 fL Normal 80-[address] [facility] Comment on above: Performed By: #### 1 7928-3 #### [facility] ([id number]) [address], [address] [place] [address] Platelet mean volume (Bld) [Entitic vol] 6.6 fL Low 7-[address] [facility] Comment on above: Performed By: #### 1 7928-3 #### [facility] ([id number]) [address], [address] [place] [address] Platelets (Bld) [#/Vol] 519 10*3/uL High 150-[address] [facility] Comment on above: Performed By: #### 1 7928-3 #### [facility] ([id number]) [address], [address] [place] [address] RBC COUNT 3.09 X10E12/L Low 3.80-5.[address] [facility] Comment on above: Performed By: #### 1 7928-3 #### [facility] ([id number]) [address], [address] [place] [address] WBC (Bld) [#/Vol] 10.7 10*3/uL Normal 4.0-11.0 [facility] Comment on above: Performed By: #### 1 7928-3 #### [facility] ([id number]) [address], [address] [place] [address] Calcium.ionized (Bld) [Mass/ Vol]on 10-17-2023 IONIZED CALCIUM 4.8 mg/dL Normal 4.5-5.[address] [facility] Comment on above: Performed By: #### 1 7928-3 #### [facility] ([id number]) [address], [address] [place] [address] Glucose Glucometer (BldC) [M ass/Vol]on 10-17-2023 Glucose [Mass/Vol] 106 mg/dL High 65-99 [facility] Glucose [Mass/Vol] 96 mg/dL Normal 65-99 [facility] Glucose [Mass/Vol] 123 mg/dL High 65-99 [facility] Glucose [Mass/Vol] 88 mg/dL Normal 65-99 [facility] MAGNESIUMon 10-17-2023 Magnesium [Mass/Vol] 2.1 mg/dL Normal 1.8-2.6 [facility] Comment on above: Performed By: #### 1 7928-3 #### [facility] ([id number]) [address], [address] [place] [address] PHOSPHORUSon 10-17-2023 Phosphate [Mass/Vol] 3.8 mg/dL Normal 2.4-4.9 [facility] Comment on above: Result Comment: SPEC IMEN HEMOLYZED, RESULTS INCREASED SLIGHTLY HEMOLYZED Performed By: #### 1 7928-3 #### [facility] ([id number]) [address], [address] [place] [address] BASIC METABOLIC PANLon 10-16 Anion gap [Moles/Vol] 10 mmol/L Normal 5-15 [facility] Comment on above: Performed By: #### E LEC #### [facility] ([id number]) [address], [address] [place] [address] Calcium [Mass/Vol] 9.0 mg/dL Normal 8.5-10.5 [facility] Comment on above: Performed By: #### E LEC #### [facility] ([id number]) [address], [address] [place] [address] Chloride [Moles/Vol] 106 mmol/L Normal 98-109 [facility] Comment on above: Performed By: #### E LEC #### [facility] ([id number]) [address], [address] [place] [address] CO2 [Moles/Vol] 22 mmol/L Normal 22-[address] [facility] Comment on above: Performed By: #### E LEC #### [facility] ([id number]) [address], [address] [place] [address] Creatinine [Mass/Vol] 1.03 mg/dL High 0.40-1.00 [facility] Comment on above: Result Comment: METH OD TRACEABLE TO IDMS STANDARD Performed By: #### E LEC #### [facility] ([id number]) [address], [address] [place] [address] GFR/1.73 sq M.predicted among non-blacks MDRD (S/P/Bld) [Vol rate/Area] 56 mL/min/{1.73_m2} Low >[address] [facility] Comment on above: Result Comment: Reported eGFR is based on the CKD-EPI 2020 equation that does not use a race coefficient. Performed By: #### E LEC #### [facility] ([id number]) [address], [address] [place] [address] Glucose [Mass/Vol] 87 mg/dL Normal 65-99 [facility] Comment on above: Performed By: #### E LEC #### [facility] ([id number]) [address], [address] [place] [address] Potassium [Moles/Vol] 4.4 mmol/L Normal 3.5-5.0 [facility] Comment on above: Performed By: #### E LEC #### [facility] ([id number]) [address], [address] [place] [address] Sodium [Moles/Vol] 138 mmol/L Normal 134-146 [facility] Comment on above: Performed By: #### E LEC #### [facility] ([id number]) [address], [address] [place] [address] Urea nitrogen [Mass/Vol] 13 mg/dL Normal 5-[address] [facility] Comment on above: Performed By: #### E LEC #### [facility] ([id number]) [address], [address] [place] [address] CK [Catalytic activity/Vol]o n 10-16-2023 CPK 35 U/L Normal 24-[address] [facility] Comment on above: Performed By: #### 1 7928-3 #### [facility] ([id number]) [address], [address] [place] [address] COMPLETE BLOOD COUNTon 10-16 Erythrocyte distribution width (RBC) [Ratio] 20.1 % High 11.5-15.[address] [facility] Comment on above: Performed By: #### E LEC #### [facility] ([id number]) [address], [address] [place] [address] Hematocrit (Bld) [Volume fraction] 26.5 % Low 35-[address] [facility] Comment on above: Performed By: #### E LEC #### [facility] ([id number]) [address], [address] [place] [address] Hemoglobin (Bld) [Mass/Vol] 8.5 g/dL Low 11.7-15.[address] [facility] Comment on above: Performed By: #### E LEC #### [facility] ([id number]) [address], [address] [place] [address] MCH (RBC) [Entitic mass] 25.9 pg Low 27-[address] [facility] Comment on above: Performed By: #### E LEC #### [facility] ([id number]) [address], [address] [place] [address] MCHC (RBC) [Mass/Vol] 32.1 g/dL Normal 32-36 [facility] Comment on above: Performed By: #### E LEC #### [facility] ([id number]) [address], [address] [place] [address] MCV (RBC) [Entitic vol] 81 fL Normal 80-[address] [facility] Comment on above: Performed By: #### E LEC #### [facility] ([id number]) [address], [address] [place] [address] Platelet mean volume (Bld) [Entitic vol] 6.8 fL Low 7-[address] [facility] Comment on above: Performed By: #### E LEC #### [facility] ([id number]) [address], [address] [place] [address] Platelets (Bld) [#/Vol] 633 10*3/uL High 150-[address] [facility] Comment on above: Performed By: #### E LEC #### [facility] ([id number]) [address], [address] [place] [address] RBC COUNT 3.28 X10E12/L Low 3.80-5.[address] [facility] Comment on above: Performed By: #### E LEC #### [facility] ([id number]) [address], [address] [place] [address] WBC (Bld) [#/Vol] 16.2 10*3/uL High 4.0-11.0 [facility] Comment on above: Performed By: #### E LEC #### [facility] ([id number]) [address], [address] [place] [address] Calcium.ionized (Bld) [Mass/ Vol]on 10-16-2023 IONIZED CALCIUM 5.0 mg/dL Normal 4.5-5.[address] [facility] Comment on above: Performed By: #### E LEC #### [facility] ([id number]) [address], [address] [place] [address] Glucose Glucometer (BldC) [M ass/Vol]on 10-16-2023 Glucose [Mass/Vol] 119 mg/dL High 65-99 [facility] Glucose [Mass/Vol] 128 mg/dL High 65-99 [facility] Glucose [Mass/Vol] 125 mg/dL High 65-99 [facility] Glucose [Mass/Vol] 88 mg/dL Normal 65-99 [facility] LIVER PANELon 10-16-2023 Albumin [Mass/Vol] 2.6 g/dL Low 3.2-5.3 [facility] Comment on above: Performed By: #### 1 7928-3 #### [facility] ([id number]) [address] [place] [address] ALP [Catalytic activity/Vol] 104 U/L Normal 39-[address] [facility] Comment on above: Performed By: #### 1 7928-3 #### [facility] ([id number]) [address] [place] [address] ALT [Catalytic activity/Vol] 6 U/L Normal 0-[address] [facility] Comment on above: Performed By: #### 1 7928-3 #### [facility] ([id number]) [address], [address] [place] [address] AST [Catalytic activity/Vol] 16 U/L Normal 0-[address] [facility] Comment on above: Performed By: #### 1 7928-3 #### [facility] ([id number]) [address], [address] [place] [address] Bilirubin [Mass/Vol] 0.3 mg/dL Normal 0.3-1.2 [facility] Comment on above: Performed By: #### 1 7928-3 #### [facility] ([id number]) [address], [address] [place] [address] Bilirubin.direct [Mass/Vol] 0.1 mg/dL Normal 0.0-0.[address] [facility] Comment on above: Performed By: #### 1 7928-3 #### [facility] ([id number]) [address], [address] [place] [address] Protein [Mass/Vol] 6.9 g/dL Normal 6.0-8.0 [facility] Comment on above: Performed By: #### 1 7928-3 #### [facility] ([id number]) [address], [address] [place] [address] MAGNESIUMon 10-16-2023 Magnesium [Mass/Vol] 2.9 mg/dL High 1.8-2.6 [facility] Comment on above: Performed By: #### E LEC #### [facility] ([id number]) [address], [address] [place] [address] PHOSPHORUSon 10-16-2023 Phosphate [Mass/Vol] 4.3 mg/dL Normal 2.4-4.9 [facility] Comment on above: Performed By: #### 1 7928-3 #### [facility] ([id number]) [address] [place] [address] BASIC METABOLIC PANLon 10-15 Anion gap [Moles/Vol] 9 mmol/L Normal 5-15 [facility] Comment on above: Performed By: #### C SRINI, BMP, , 2776-10 #### [facility] ([id number]) [address] [place] [address] Calcium [Mass/Vol] 9.4 mg/dL Normal 8.5-10.5 [facility] Comment on above: Performed By: #### Timmy MILLIGAN, BMP, , 2776-10 #### [facility] ([id number]) [address] [place] [address] Chloride [Moles/Vol] 103 mmol/L Normal 98-109 [facility] Comment on above: Performed By: #### Timmy MILLIGAN, BMP, , 2776-10 #### [facility] ([id number]) [address] [place] [address] CO2 [Moles/Vol] 23 mmol/L Normal 22-[address] [facility] Comment on above: Performed By: #### Timmy MILLIGAN, BMP, , 2776-10 #### [facility] ([id number]) [address] [place] [address] Creatinine [Mass/Vol] 0.94 mg/dL Normal 0.40-1.00 [facility] Comment on above: Result Comment: METH OD TRACEABLE TO IDMS STANDARD Performed By: #### C SRINI, BMP, , 2776-10 #### [facility] ([id number]) [address], [address] [place] [address] GFR/1.73 sq M.predicted among non-blacks MDRD (S/P/Bld) [Vol rate/Area] 62 mL/min/{1.73_m2} Normal >[address] [facility] Comment on above: Result Comment: Reported eGFR is based on the CKD-EPI 2020 equation that does not use a race coefficient. Performed By: #### C SANTOSH MILLIGAN, , 2776-10 #### [facility] ([id number]) [address], [address] [place] [address] Glucose [Mass/Vol] 89 mg/dL Normal 65-99 [facility] Comment on above: Performed By: #### C SANTOSH MILLIGAN, , 2776-10 #### [facility] ([id number]) [address], [address] [place] [address] Potassium [Moles/Vol] 4.2 mmol/L Normal 3.5-5.0 [facility] Comment on above: Performed By: #### SANTOSH SALEEM, , 2776-10 #### [facility] ([id number]) [address], [address] [place] [address] Sodium [Moles/Vol] 135 mmol/L Normal 134-146 [facility] Comment on above: Performed By: #### SANTOSH SALEEM, , 2776-10 #### [facility] ([id number]) [address], [address] [place] [address] Urea nitrogen [Mass/Vol] 13 mg/dL Normal 5-[address] [facility] Comment on above: Performed By: #### SANTOSH SALEEM, , 2776-10 #### [facility] ([id number]) [address], [facility] [address] [place] [address] COMPLETE BLOOD COUNTon 10-15 Erythrocyte distribution width (RBC) [Ratio] 18.7 % High 11.5-15.[address] [facility] Comment on above: Performed By: #### C SANTOSH MILLIGAN, , 2776-10 #### [facility] ([id number]) [address], [address] [place] [address] Hematocrit (Bld) [Volume fraction] 29.7 % Low 35-[address] [facility] Comment on above: Performed By: #### C , [facility], , 2776-10 #### [facility] ([id number]) [address], [address] [place] [address] Hemoglobin (Bld) [Mass/Vol] 9.3 g/dL Low 11.7-15.[address] [facility] Comment on above: Performed By: #### Timmy MILLIGAN, [facility], , 2776-10 #### [facility] ([id number]) [address], [address] [place] [address] MCH (RBC) [Entitic mass] 25.1 pg Low 27-[address] [facility] Comment on above: Performed By: #### C SRINI, [facility], , 2776-10 #### [facility] ([id number]) [address], [address] [place] [address] MCHC (RBC) [Mass/Vol] 31.3 g/dL Low 32-36 [facility] Comment on above: Performed By: #### Timmy MILLIGAN, [facility], , 2776-10 #### [facility] ([id number]) [address], [address] [place] [address] MCV (RBC) [Entitic vol] 80 fL Normal 80-[address] [facility] Comment on above: Performed By: #### Timmy BC, [facility], , 2776-10 #### [facility] ([id number]) [address], [address] [place] [address] Platelet mean volume (Bld) [Entitic vol] 7.0 fL Normal 7-[address] [facility] Comment on above: Performed By: #### C SRINI, [facility], , 2776-10 #### [facility] ([id number]) [address], [address] [place] [address] Platelets (Bld) [#/Vol] 705 10*3/uL High 150-[address] [facility] Comment on above: Performed By: #### C SRINI [facility], , 2776-10 #### [facility] ([id number]) [address], [facility] [address] [place] [address] RBC COUNT 3.71 X10E12/L Low 3.80-5.[address] [facility] Comment on above: Performed By: #### Timmy MILLIGAN [facility], , 2776-10 #### [facility] ([id number]) [address], [facility] [address] [place] [address] WBC (Bld) [#/Vol] 24.4 10*3/uL High 4.0-11.0 [facility] Comment on above: Performed By: #### Timmy MILLIGAN [facility], , 1 #### [facility] ([id number]) [address], [address] [place] [address] Calcium.ionized (Bld) [Mass/ Vol]on 10-15-2023 IONIZED CALCIUM 4.8 mg/dL Normal 4.5-5.[address] [facility] Comment on above: Performed By: #### 3 8230-9 #### [facility] ([id number]) [address] [address] [place] [address] FL SWALLOW MOTILITY FUNCTION on 10-15-2023 FL [...] Pereira MD on 10/15/2023 2:48 PM Normal [facility] Glucose Glucometer (BldC) [M ass/Vol]on 10-15-2023 Glucose [Mass/Vol] 111 mg/dL High 65-99 [facility] Glucose [Mass/Vol] 93 mg/dL Normal 65-99 [facility] Glucose [Mass/Vol] 99 mg/dL Normal 65-99 [facility] MAGNESIUMon 10-15-2023 Magnesium [Mass/Vol] 1.5 mg/dL Low 1.8-2.6 [facility] Comment on above: Performed By: #### E LEC #### [facility] ([id number]) [address], [address] [place] [address] PHOSPHORUSon 10-15-2023 Phosphate [Mass/Vol] 3.4 mg/dL Normal 2.4-4.9 [facility] Comment on above: Performed By: #### E LEC #### [facility] ([id number]) [address], [address] [place] [address] Vancomycin trough [Mass/Vol] on 10-15-2023 VANCOMYCIN TROUGH 15.5 ug/mL Normal 5.0-20.0 [facility] Comment on above: Performed By: #### E LEC #### [facility] ([id number]) [address], [address] [place] [address] ELECTROLYTESon 10-14-2023 Anion gap [Moles/Vol] 7 mmol/L Normal 5-15 [facility] Comment on above: Performed By: #### E LEC #### [facility] ([id number]) [address], [address] [place] [address] Chloride [Moles/Vol] 106 mmol/L Normal 98-109 [facility] Comment on above: Performed By: #### E LEC #### [facility] ([id number]) [address], [address] [place] [address] CO2 [Moles/Vol] 22 mmol/L Normal 22-[address] [facility] Comment on above: Performed By: #### E LEC #### [facility] ([id number]) [address], [address] [place] [address] Potassium [Moles/Vol] 5.8 mmol/L High 3.5-5.0 [facility] Comment on above: Performed By: #### E LEC #### [facility] ([id number]) [address], [address] [place] [address] Sodium [Moles/Vol] 135 mmol/L Normal 134-146 [facility] Comment on above: Performed By: #### E LEC #### [facility] ([id number]) [address], [address] [place] [address] Glucose Glucometer (BldC) [M ass/Vol]on 10-14-2023 Glucose [Mass/Vol] 84 mg/dL Normal 65-99 [facility] Glucose [Mass/Vol] 105 mg/dL High 65-99 [facility] Glucose [Mass/Vol] 85 mg/dL Normal 65-99 [facility] BLOOD CULTUREon 10-13-2023 Bacteria identified Aer cx Nom (Bld) SPECIMEN NOTES SUBOPTIMAL VOLUME OF BLOOD COLLECTED, RESULTS MAY BE AFFECTED. CULTURE RESULTS NO GROWTH 5 DAYS Normal [facility] Comment on above: Performed By: #### 1 7928-3 #### [facility] ([id number]) [address] [facility], [address] [place] [address] BLOOD CULTUREon 10-05-2023 Bacteria identified Aer cx Nom (Bld) CULTURE RESULTS STAPHYLOCOCCUS AUREUS METHICILLIN RESISTANT Staphylcoccus aureus detected by PCR. mecA/C and MREJ gene detected by PCR (MRSA). Organism: STAPHYLOCOCCUS AUREUS Antibiotic Interpretation NATALIA Status CEFAZOLIN R F CLINDAMYCIN R >=4 F OXACILLIN R >=4 F TRIMETH/SULFAMETHOXAZOLE S <=.5/9.5 F VANCOMYCIN S 1 F DAPTOMYCIN S 0.25 F DOXYCYCLINE S 2 F Susceptible [facility] Comment on above: Performed By: #### 1 7928-3 #### [facility] ([id number]) [address] [place] [address], [address] [place] [address] Calcium [Mass/volume] in Ser um or PlasmaOrdered By: Jesus Alberto Aquino on 08-20-2023 Calcium [Mass/Vol] 7.5 mg/dL 8.6-10.3 [facility] Carbon dioxide, total [Moles /volume] in Serum or PlasmaOrdered By: Jesus Alberto Aquino on 08-20-2023 CO2 [Moles/Vol] 25.5 mmol/L 21.0-31.0 [facility] Chloride [Moles/volume] in S kaveh or PlasmaOrdered By: Jesus Alberto Aquino on 08-20-2023 Chloride [Moles/Vol] 109 mmol/L 98-107 [facility] Creatinine [Mass/volume] in Serum or PlasmaOrdered By: Jesus Alberto Aquino on 08-20-2023 Creatinine [Mass/Vol] 1.08 mg/dL 0.60-1.20 [facility] Comment on above: Delta: 1.60 on 08/19 Glucose [Mass/volume] in Ser um or PlasmaOrdered By: Jesus Alberto Aquino on 08-20-2023 Glucose [Mass/Vol] 57 mg/dL 70-100 [facility] Comment on above: ADA recommended refe rence rangeRandom Glucose Reference Range is dependent on time and content of last meal. Glucose of more than 200 mg/dL in a nonstressed, ambulatory subject supports the diagnosis of Diabetes Mellitus. No Panel InformationOrdered By: Jesus Alberto Aquino on 08-20-2023 Estimated GFR (CKD-EPI) 52.905 mL/Min [facility] Creatinine Clearance (Chem 41.58 [facility] Potassium [Moles/volume] in Serum or PlasmaOrdered By: Jesus Alberto Aquino on 08-20-2023 Potassium [Moles/Vol] 4.2 mmol/L 3.5-5.1 [facility] Serum or plasma anion gap de terminationOrdered By: Jesus Alberto Aquino on 08-20-2023 Anion gap [Moles/Vol] 12.7 mmol/L 6.0-15.0 [facility] Sodium [Moles/volume] in Ser um or PlasmaOrdered By: Jesus Alberto Aquino on 08-20-2023 Sodium [Moles/Vol] 143 mmol/L 136-145 [facility] Urea nitrogen [Mass/volume] in Serum or PlasmaOrdered By: Jesus Alberto Aquino on 08-20-2023 Urea nitrogen [Mass/Vol] 19 mg/dL 7-25 [facility] Erythrocyte distribution wid th Auto (RBC) [Ratio]Ordered By: Jesus Alberto Aquino on 08-19-2023 Erythrocyte distribution width (RBC) [Ratio] 17.2 % 11.9-15.3 [facility] Hematocrit Auto (Bld) [Volum e fraction]Ordered By: Jesus Alberto Aquino on 08-19-2023 Hematocrit (Bld) [Volume fraction] 31.8 % 34.0-46.4 [facility] Hemoglobin [Mass/volume] in BloodOrdered By: Jesus Alberto Aquino on 08-19-2023 Hemoglobin (Bld) [Mass/Vol] 10.3 g/dL 11.8-15.4 [facility] Leukocytes [#/volume] correc juma for nucleated erythrocytes in Blood by Automated counOrdered By: Jesus Alberto Aquino on 08-19-2023 WBC corrected for nucl RBC Auto (Bld) [#/Vol] 15.6 10*3/uL 3.8-11.6 [facility] MCH Auto (RBC) [Entitic mass ]Ordered By: Jesus Alberto Aquino on 08-19-2023 MCH (RBC) [Entitic mass] 27.7 pg 24.7-34.3 [facility] MCHC Auto (RBC) [Mass/Vol]Or dered By: Jesus Alberto Aquino on 08-19-2023 MCHC (RBC) [Mass/Vol] 32.4 g/dL 32.0-35.0 [facility] MCV Auto (RBC) [Entitic vol] Ordered By: Jesus Alberto Aquino on 08-19-2023 MCV (RBC) [Entitic vol] 85.4 fL 80-100 [facility] Platelet mean volume Auto (B ld) [Entitic vol]Ordered By: Jesus Alberto Aquino on 08-19-2023 Platelet mean volume (Bld) [Entitic vol] 8.9 fL 6.3-10.7 [facility] Platelets Auto (Bld) [#/Vol] Ordered By: Jesus Alberto Aquino on 08-19-2023 Platelets (Bld) [#/Vol] 201 10*3/uL 150-450 [facility] RBC Auto (Bld) [#/Vol]Ordere d By: Jesus Alberto Aquino on 08-19-2023 RBC (Bld) [#/Vol] 3.72 10*6/uL 3.60-5.00 [facility] Basophils Auto (Bld) [#/Vol] Ordered By: Jesus Alberto Aquino on 08-18-2023 Basophils (Bld) [#/Vol] 0.1 10*3/uL 0.0-0.2 [facility] Basophils/100 WBC Auto (Bld) Ordered By: Jesus Alberto Aquino on 08-18-2023 Basophils/100 WBC (Bld) 0.3 % . [facility] Eosinophils Auto (Bld) [#/Vo l]Ordered By: Jesus Alberto Aquino on 08-18-2023 Eosinophils (Bld) [#/Vol] 0.0 10*3/uL 0.0-0.45 [facility] Eosinophils/100 WBC Auto (Bl d)Ordered By: Jesus Alberto Aquino on 08-18-2023 Eosinophils/100 WBC (Bld) 0.1 % . [facility] Lymphocytes Auto (Bld) [#/Vo l]Ordered By: Jesus Alberto Aquino on 08-18-2023 Lymphocytes (Bld) [#/Vol] 2.8 10*3/uL 1.00-4.8 [facility] Lymphocytes/100 WBC Auto (Bl d)Ordered By: Jesus Alberto Aquino on 08-18-2023 Lymphocytes/100 WBC (Bld) 10.9 % . [facility] Monocytes Auto (Bld) [#/Vol] Ordered By: Jesus Alberto Aquino on 08-18-2023 Monocytes (Bld) [#/Vol] 1.1 10*3/uL 0.0-0.8 [facility] Monocytes/100 WBC Auto (Bld) Ordered By: Jesus Alberto Aquino on 08-18-2023 Monocytes/100 WBC (Bld) 4.4 % . [facility] Neutrophils Auto (Bld) [#/Vo l]Ordered By: Jesus Alberto Aquino on 08-18-2023 Neutrophils (Bld) [#/Vol] 21.6 10*3/uL 1.8-7.7 [facility] Neutrophils/100 WBC Auto (Bl d)Ordered By: Jesus Alberto Aquino on 08-18-2023 Neutrophils/100 WBC (Bld) 84.3 % . [facility] Nucleated erythrocytes [Pres ence] in Blood by Automated countOrdered By: Jesus Alberto Aquino on 08-18-2023 Nucleated RBC Auto Ql (Bld) 0.2 /100{WBC} 0-0.5 [facility] WBC Auto (Bld) [#/Vol]Ordere d By: Jesus Alberto Aquino on 08-18-2023 WBC (Bld) [#/Vol] 25.6 10*3/uL 3.8-11.6 [facility] Activated partial thrombopla stin time (aPTT) in platelet poor plasma by coagulation aOrdered By: Maury Morrissey on 08-17-2023 aPTT Coag (PPP) [Time] 26.3 s 25.1-36.5 [facility] Comment on above: A hematocrit value g reater than 55% may lead to inaccurate results in coagulation testing. Patients having hematocrit values >55% require a special collection tube for coagulation studies. Please contact the laboratory at [phone] for redraw instructions. Alanine aminotransferase [En zymatic activity/volume] in Serum or PlasmaOrdered By: Maury Morrissey on 08-17-2023 ALT [Catalytic activity/Vol] 24 U/L 7-52 [facility] Albumin [Mass/volume] in Ser um or Plasma by Bromocresol green (BCG) dye binding methoOrdered By: Maury Morrissey on 08-17-2023 Albumin BCG dye [Mass/Vol] 3.4 g/dL 3.5-5.7 [facility] Alkaline phosphatase [Enzyma tic activity/volume] in Serum or PlasmaOrdered By: Maury Morrissey on 08-17-2023 ALP [Catalytic activity/Vol] 64 U/L 34-104 [facility] Anisocytosis LM Ql (Bld)Orde red By: Maury Morrissey on 08-17-2023 Anisocytosis Ql (Bld) Moderate Fir [facility] Aspartate aminotransferase [ Enzymatic activity/volume] in Serum or PlasmaOrdered By: Maury Morrissey on 08-17-2023 AST [Catalytic activity/Vol] 23 U/L 13-39 [facility] Automated erythrocytes count in urine sediment (number/area)Ordered By: Maury Morrissey on 08-17-2023 RBC Auto (Urine sed) [#/Area] 0-1 [HPF] 0-4 [facility] Automated leukocytes count i n urine sediment (number/area)Ordered By: Maury Morrissey on 08-17-2023 WBC Auto (Urine sed) [#/Area] 1-2 [HPF] 0-4 [facility] Basophils Auto (Bld) [#/Vol] Ordered By: Maury Morrissey on 08-17-2023 Basophils (Bld) [#/Vol] 0.0 10*3/uL 0.0-0.2 [facility] Basophils/100 WBC Auto (Bld) Ordered By: Maury Morrissey on 08-17-2023 Basophils/100 WBC (Bld) 0.2 % . [facility] Bilirubin Test strip Ql (U)O rdered By: Maury Morrissey on 08-17-2023 Bilirubin Ql (U) Negative Negative [facility] Bilirubin.direct [Mass/volum e] in Serum or PlasmaOrdered By: Maury Morrissey on 08-17-2023 Bilirubin.direct [Mass/Vol] 0.20 mg/dL 0.03-0.18 [facility] Bilirubin.total [Mass/volume ] in Serum or PlasmaOrdered By: Maury Morrissey on 08-17-2023 Bilirubin [Mass/Vol] 0.6 mg/dL 0.3-1.0 [facility] Calcium [Mass/volume] in Ser um or PlasmaOrdered By: Maury Morrissey on 08-17-2023 Calcium [Mass/Vol] 9.1 mg/dL 8.6-10.3 [facility] Carbon dioxide, total [Moles /volume] in Serum or PlasmaOrdered By: Maury Morrissey on 08-17-2023 CO2 [Moles/Vol] 27.3 mmol/L 21.0-31.0 [facility] Chloride [Moles/volume] in S kaveh or PlasmaOrdered By: Maury Morrissey on 08-17-2023 Chloride [Moles/Vol] 97 mmol/L 98-107 [facility] Color Auto (U)Ordered By: Arturo red Yuni on 08-17-2023 Color (U) Yellow Yellow [facility] Creatine kinase [Enzymatic a ctivity/volume] in Serum or PlasmaOrdered By: Maury Morrissey on 08-17-2023 CK [Catalytic activity/Vol] 87 U/L 30-223 [facility] Creatinine [Mass/volume] in Serum or PlasmaOrdered By: Maury Morrissey on 08-17-2023 Creatinine [Mass/Vol] 4.44 mg/dL 0.60-1.20 [facility] Eosinophils Auto (Bld) [#/Vo l]Ordered By: Maury Morrissey on 08-17-2023 Eosinophils (Bld) [#/Vol] 0.0 10*3/uL 0.0-0.45 [facility] Eosinophils/100 WBC Auto (Bl d)Ordered By: Maury Morrissey on 08-17-2023 Eosinophils/100 WBC (Bld) 0.0 % . [facility] Erythrocyte distribution wid th Auto (RBC) [Ratio]Ordered By: Maury Morrissey on 08-17-2023 Erythrocyte distribution width (RBC) [Ratio] 17.6 % 11.9-15.3 [facility] Globulin Calc (S) [Mass/Vol] Ordered By: Maury Morrissey on 08-17-2023 Globulin (S) [Mass/Vol] 3.7 g/dL [facility] Glucose [Mass/volume] in Ser um or PlasmaOrdered By: Maury Morrissey on 08-17-2023 Glucose [Mass/Vol] 79 mg/dL 70-100 [facility] Comment on above: ADA recommended refe rence rangeRandom Glucose Reference Range is dependent on time and content of last meal. Glucose of more than 200 mg/dL in a nonstressed, ambulatory subject supports the diagnosis of Diabetes Mellitus. Hematocrit Auto (Bld) [Volum e fraction]Ordered By: Maury Morrissey on 08-17-2023 Hematocrit (Bld) [Volume fraction] 37.9 % 34.0-46.4 [facility] Hemoglobin [Mass/volume] in BloodOrdered By: Maury Morrissey on 08-17-2023 Hemoglobin (Bld) [Mass/Vol] 12.0 g/dL 11.8-15.4 [facility] Hypochromia LM Ql (Bld)Order ed By: Maury Morrissey on 08-17-2023 Hypochromia Ql (Bld) Slight [facility] INR in Platelet poor plasma by Coagulation assayOrdered By: Maury Morrissey on 08-17-2023 INR Coag (PPP) [Relative time] 1.1 {INR} [facility] Comment on above: INR Therapeutic Rang e [...] LM Ql (Urine sed) 0-8 [LPF] 0-8 [facility] Lactate [Moles/volume] in Se rum or PlasmaOrdered By: Maury Morrissey on 08-17-2023 Lactate [Moles/Vol] 1.1 mmol/L 0.5-2.2 [facility] Leukocytes [#/volume] correc juma for nucleated erythrocytes in Blood by Automated counOrdered By: Maury Morrissey on 08-17-2023 WBC corrected for nucl RBC Auto (Bld) [#/Vol] 29.3 10*3/uL 3.8-11.6 [facility] Lymphocytes Auto (Bld) [#/Vo l]Ordered By: Maury Morrissey on 08-17-2023 Lymphocytes (Bld) [#/Vol] 2.3 10*3/uL 1.00-4.8 [facility] Lymphocytes/100 WBC Auto (Bl d)Ordered By: Maury Morrissey on 08-17-2023 Lymphocytes/100 WBC (Bld) 7.8 % . [facility] MCH Auto (RBC) [Entitic mass ]Ordered By: Maury Morrissey on 08-17-2023 MCH (RBC) [Entitic mass] 27.3 pg 24.7-34.3 [facility] MCHC Auto (RBC) [Mass/Vol]Or dered By: Maury Morrissey on 08-17-2023 MCHC (RBC) [Mass/Vol] 31.6 g/dL 32.0-35.0 [facility] MCV Auto (RBC) [Entitic vol] Ordered By: Maury Morrissey on 08-17-2023 MCV (RBC) [Entitic vol] 86.4 fL 80-100 [facility] Monocyte distribution width [Entitic volume] in Blood by AutomatedOrdered By: Maury Morrissey on 08-17-2023 Monocyte distribution width Auto (Bld) [Entitic vol] 23.25 % 0.00-20.00 [facility] Comment on above: For adults in ED, MD W > 20.0 may be associated with a higher risk of sepsis during the first 12 hrs of hospital admission Monocytes Auto (Bld) [#/Vol] Ordered By: Maury Morrissey on 08-17-2023 Monocytes (Bld) [#/Vol] 1.6 10*3/uL 0.0-0.8 [facility] Monocytes/100 WBC Auto (Bld) Ordered By: Maury Morrissey on 08-17-2023 Monocytes/100 WBC (Bld) 5.5 % . [facility] Natriuretic peptide B [Mass/ Vol]Ordered By: Maury Morrissey on 08-17-2023 Natriuretic peptide B (Bld) [Mass/Vol] 68.0 pg/mL 5-100 [facility] Neutrophils Auto (Bld) [#/Vo l]Ordered By: Maury Morrissey on 08-17-2023 Neutrophils (Bld) [#/Vol] 25.4 10*3/uL 1.8-7.7 [facility] Neutrophils/100 WBC Auto (Bl d)Ordered By: Maury Morrissey on 08-17-2023 Neutrophils/100 WBC (Bld) 86.5 % . [facility] Nitrite Test strip Ql (U)Ord ered By: Maury Morrissey on 08-17-2023 Nitrite Ql (U) Negative Negative [facility] No Panel InformationOrdered By: Maury Morrissey on 08-17-2023 Estimated GFR (CKD-EPI) 9.700 mL/Min [facility] Creatinine Clearance (Chem 10.00 [facility] Nucleated erythrocytes [Pres ence] in Blood by Automated countOrdered By: Maury Morrissey on 08-17-2023 Nucleated RBC Auto Ql (Bld) 0.1 /100{WBC} 0-0.5 [facility] Platelet adequacy [Presence] in Blood by Light microscopyOrdered By: Maury Morrissey on 08-17-2023 Platelets LM Ql (Bld) Normal Normal Fir [facility] Platelet mean volume Auto (B ld) [Entitic vol]Ordered By: Maury Morrissey on 08-17-2023 Platelet mean volume (Bld) [Entitic vol] 8.8 fL 6.3-10.7 [facility] Platelet morphology finding [Identifier] in BloodOrdered By: Maury Morrissey on 08-17-2023 Platelet morphology finding Nom (Bld) Normal Normal [facility] Platelets Auto (Bld) [#/Vol] Ordered By: Maury Morrissey on 08-17-2023 Platelets (Bld) [#/Vol] 298 10*3/uL 150-450 [facility] Polychromasia [Presence] in Blood by Light microscopyOrdered By: Maury Morrissey on 08-17-2023 Polychromasia LM Ql (Bld) Slight [facility] Potassium [Moles/volume] in Serum or PlasmaOrdered By: Maury Morrissey on 08-17-2023 Potassium [Moles/Vol] 4.5 mmol/L 3.5-5.1 [facility] Protein Auto test strip (U) [Mass/Vol]Ordered By: Maury Morrissey on 08-17-2023 Protein (U) [Mass/Vol] Negative Negative [facility] Protein [Mass/volume] in Ser um or PlasmaOrdered By: Maury Morrissey on 08-17-2023 Protein [Mass/Vol] 7.1 g/dL 6.4-8.9 [facility] Prothrombin time (PT)Ordered By: Maury Morrissey on 08-17-2023 PT Coag (PPP) [Time] 12.6 s 9.0-12.9 [facility] Comment on above: A hematocrit value g reater than 55% may lead to inaccurate results in coagulation testing. Patients having hematocrit values >55% require a special collection tube for coagulation studies. Please contact the laboratory at [phone] for redraw instructions. RBC Auto (Bld) [#/Vol]Ordere d By: Maury Morrissey on 08-17-2023 RBC (Bld) [#/Vol] 4.39 10*6/uL 3.60-5.00 [facility] RBC morphologyOrdered By: Arturo Morrissey on 08-17-2023 RBC morphology finding Nom (Bld) N/A [facility] Serum or plasma albumin/glob ulin mass ratioOrdered By: Maury Morrissey on 08-17-2023 Albumin/Globulin [Mass ratio] 0.9 {ratio} [facility] Serum or plasma anion gap de terminationOrdered By: Maury Morrissey on 08-17-2023 Anion gap [Moles/Vol] 23.2 mmol/L 6.0-15.0 [facility] Serum or plasma non-glucuron idated bilirubin measurement (mass/volume)Ordered By: Maury Morrissey on 08-17-2023 Bilirubin.indirect [Mass/Vol] 0.4 mg/dL [facility] Sodium [Moles/volume] in Ser um or PlasmaOrdered By: Maury Morrissey on 08-17-2023 Sodium [Moles/Vol] 143 mmol/L 136-145 [facility] Specific gravity Auto test s trip (U) [Rel density]Ordered By: Maury Morrissey on 08-17-2023 Specific gravity (U) [Rel density] 1.008 1.001-1.03 0 [facility] Squamous epithelial cells de tection in urine sediment by light microscopyOrdered By: Maury Morrissey on 08-17-2023 Epithelial cells.squamous LM Ql (Urine sed) None seen [HPF] 0-2 [facility] Troponin I.cardiac [Mass/vol ume] in Serum or Plasma by Detection limit <= 0.01 ng/Ordered By: Maury Morrissey on 08-17-2023 Troponin I.cardiac DL <= 0.01 ng/mL [Mass/Vol] 38.1 pg/mL 0.0-15.0 [facility] Urea nitrogen [Mass/volume] in Serum or PlasmaOrdered By: Maury Morrissey on 08-17-2023 Urea nitrogen [Mass/Vol] 92 mg/dL 7-25 [facility] Urine bacteria detection by automated methodOrdered By: Maury Morrissey on 08-17-2023 Bacteria Auto Ql (U) 1+ None Seen [facility] Urine clarity by refractomet ry automatedOrdered By: Maury Morrissey on 08-17-2023 Clarity Refractometry automated (U) Clear Clear [facility] Urine glucose measurement by automated test strip (mass/volume)Ordered By: Maury Morrissey on 08-17-2023 Glucose Auto test strip (U) [Mass/Vol] Normal mg/dL Normal [facility] Urine hemoglobin detection b y automated test stripOrdered By: Maury Morrissey on 08-17-2023 Hemoglobin Auto test strip Ql (U) Trace Negative [facility] Urine leukocyte esterase det ection by automated test stripOrdered By: Maury Morrissey on 08-17-2023 Leukocyte esterase Auto test strip Ql (U) Negative Negative [facility] Urobilinogen Auto test strip (U) [Mass/Vol]Ordered By: Maury Morrissey on 08-17-2023 Urobilinogen (U) [Mass/Vol] Normal mg/dL Normal [facility] WBC Auto (Bld) [#/Vol]Ordere d By: Maury Morrissey on 08-17-2023 WBC (Bld) [#/Vol] 29.3 10*3/uL 3.8-11.6 [facility] pH Auto test strip (U)Ordere d By: Maury Morrissey on 08-17-2023 pH (U) 5.5 [pH] 5.0-9.0 [facility] Anisocytosis LM Ql (Bld)Orde red By: Bhavesh Cristobal on 07-14-2023 Anisocytosis Ql (Bld) Marked Fir [facility] Basophils Auto (Bld) [#/Vol] Ordered By: Bhavesh Cristobal on 07-14-2023 Basophils (Bld) [#/Vol] 0.1 10*3/uL 0.0-0.2 [facility] Basophils/100 WBC Auto (Bld) Ordered By: Bhavesh Cristobal on 07-14-2023 Basophils/100 WBC (Bld) 0.3 % . [facility] Calcium [Mass/volume] in Ser um or PlasmaOrdered By: Bhavesh Cristobal on 07-14-2023 Calcium [Mass/Vol] 8.0 mg/dL 8.6-10.3 [facility] Carbon dioxide, total [Moles /volume] in Serum or PlasmaOrdered By: Bhavesh Cristobal on 07-14-2023 CO2 [Moles/Vol] 28.1 mmol/L 21.0-31.0 [facility] Chloride [Moles/volume] in S kaveh or PlasmaOrdered By: Bhavesh Cristobal on 07-14-2023 Chloride [Moles/Vol] 110 mmol/L 98-107 [facility] Creatinine [Mass/volume] in Serum or PlasmaOrdered By: Bhavesh Cristobal on 07-14-2023 Creatinine [Mass/Vol] 1.10 mg/dL 0.60-1.20 [facility] Eosinophils Auto (Bld) [#/Vo l]Ordered By: Bhavesh Cristobal on 07-14-2023 Eosinophils (Bld) [#/Vol] 0.1 10*3/uL 0.0-0.45 [facility] Eosinophils/100 WBC Auto (Bl d)Ordered By: Bhavesh Cristobal on 07-14-2023 Eosinophils/100 WBC (Bld) 0.4 % . [facility] Erythrocyte distribution wid th Auto (RBC) [Ratio]Ordered By: Bhavesh Cristobal on 07-14-2023 Erythrocyte distribution width (RBC) [Ratio] 22.8 % 11.9-15.3 [facility] Glucose Glucometer (BldC) [M ass/Vol]Ordered By: Jolanta Mckenzie on 07-14-2023 Glucose [Mass/Vol] 80 mg/dL [facility] Comment on above: Random Glucose Refer ence Range is dependent on time and content of last meal. Glucose of more than 200 mg/dL in a nonstressed, ambulatory subject supports the diagnosis of Diabetes Mellitus. Glucose [Mass/volume] in Ser um or PlasmaOrdered By: Bhavesh Cristobal on 07-14-2023 Glucose [Mass/Vol] 84 mg/dL 70-100 [facility] Comment on above: ADA recommended refe rence rangeRandom Glucose Reference Range is dependent on time and content of last meal. Glucose of more than 200 mg/dL in a nonstressed, ambulatory subject supports the diagnosis of Diabetes Mellitus. Hematocrit Auto (Bld) [Volum e fraction]Ordered By: Bhavesh Cristobal on 07-14-2023 Hematocrit (Bld) [Volume fraction] 33.6 % 34.0-46.4 [facility] Hemoglobin [Mass/volume] in BloodOrdered By: Bhavesh Cristobal on 07-14-2023 Hemoglobin (Bld) [Mass/Vol] 10.5 g/dL 11.8-15.4 [facility] Hypochromia LM Ql (Bld)Order ed By: Bhavesh Cristobal on 07-14-2023 Hypochromia Ql (Bld) Slight [facility] Leukocytes [#/volume] correc juma for nucleated erythrocytes in Blood by Automated counOrdered By: Bhavesh Cristobal on 07-14-2023 WBC corrected for nucl RBC Auto (Bld) [#/Vol] 19.3 10*3/uL 3.8-11.6 [facility] Lymphocytes Auto (Bld) [#/Vo l]Ordered By: Bhavesh Cristobal on 07-14-2023 Lymphocytes (Bld) [#/Vol] 4.3 10*3/uL 1.00-4.8 [facility] Lymphocytes/100 WBC Auto (Bl d)Ordered By: Bhavesh Cristobal on 07-14-2023 Lymphocytes/100 WBC (Bld) 22.1 % . [facility] MCH Auto (RBC) [Entitic mass ]Ordered By: Bhavesh Cristobal on 07-14-2023 MCH (RBC) [Entitic mass] 26.2 pg 24.7-34.3 [facility] MCHC Auto (RBC) [Mass/Vol]Or dered By: Bhavesh Cristobal on 07-14-2023 MCHC (RBC) [Mass/Vol] 31.2 g/dL 32.0-35.0 [facility] MCV Auto (RBC) [Entitic vol] Ordered By: Bhavesh Cristobal on 07-14-2023 MCV (RBC) [Entitic vol] 84.0 fL 80-100 [facility] Monocytes Auto (Bld) [#/Vol] Ordered By: Bhavesh Cristobal on 07-14-2023 Monocytes (Bld) [#/Vol] 1.4 10*3/uL 0.0-0.8 [facility] Monocytes/100 WBC Auto (Bld) Ordered By: Bhavesh Cristobal on 07-14-2023 Monocytes/100 WBC (Bld) 7.3 % . [facility] Neutrophils Auto (Bld) [#/Vo l]Ordered By: Bhavesh Cristobal on 07-14-2023 Neutrophils (Bld) [#/Vol] 13.5 10*3/uL 1.8-7.7 [facility] Neutrophils/100 WBC Auto (Bl d)Ordered By: Bhavesh Cristobal on 07-14-2023 Neutrophils/100 WBC (Bld) 69.9 % . [facility] No Panel InformationOrdered By: Bhavesh Cristobal on 07-14-2023 Estimated GFR (CKD-EPI) 51.753 mL/Min [facility] Creatinine Clearance (Chem 42.83 [facility] Nucleated erythrocytes [Pres ence] in Blood by Automated countOrdered By: Bhavesh Cristobal on 07-14-2023 Nucleated RBC Auto Ql (Bld) 0.1 /100{WBC} 0-0.5 [facility] Platelet adequacy [Presence] in Blood by Light microscopyOrdered By: Bhavesh Cristobal on 07-14-2023 Platelets LM Ql (Bld) Normal Normal [facility] Platelet mean volume Auto (B ld) [Entitic vol]Ordered By: Bhavesh Cristobal on 07-14-2023 Platelet mean volume (Bld) [Entitic vol] 7.9 fL 6.3-10.7 [facility] Platelet morphology finding [Identifier] in BloodOrdered By: Bhavesh Cristobal on 07-14-2023 Platelet morphology finding Nom (Bld) Normal Normal [facility] Platelets Auto (Bld) [#/Vol] Ordered By: Bhavesh Cristobal on 07-14-2023 Platelets (Bld) [#/Vol] 238 10*3/uL 150-450 [facility] Polychromasia [Presence] in Blood by Light microscopyOrdered By: Bhavesh Cristobal on 07-14-2023 Polychromasia LM Ql (Bld) Slight [facility] Potassium [Moles/volume] in Serum or PlasmaOrdered By: Bhavesh Cristobal on 07-14-2023 Potassium [Moles/Vol] 4.2 mmol/L 3.5-5.1 [facility] RBC Auto (Bld) [#/Vol]Ordere d By: Bhavesh Cristobal on 07-14-2023 RBC (Bld) [#/Vol] 4.00 10*6/uL 3.60-5.00 [facility] RBC morphologyOrdered By: Wilber Cristobal on 07-14-2023 RBC morphology finding Nom (Bld) N/A [facility] Serum or plasma anion gap de terminationOrdered By: Bhavesh Cristobal on 07-14-2023 Anion gap [Moles/Vol] 9.1 mmol/L 6.0-15.0 [facility] Sodium [Moles/volume] in Ser um or PlasmaOrdered By: Bhavesh Cristobal on 07-14-2023 Sodium [Moles/Vol] 143 mmol/L 136-145 [facility] Urea nitrogen [Mass/volume] in Serum or PlasmaOrdered By: Bhavesh Cristobal on 07-14-2023 Urea nitrogen [Mass/Vol] 24 mg/dL 7- [facility] WBC Auto (Bld) [#/Vol]Ordere d By: Bhavesh Cristobal on 07-14-2023 WBC (Bld) [#/Vol] 19.3 10*3/uL 3.8-11.6 [facility] Alanine aminotransferase [En zymatic activity/volume] in Serum or PlasmaOrdered By: Jolanta Mckenzie on 07-12-2023 ALT [Catalytic activity/Vol] 16 U/L 7-52 [facility] Albumin [Mass/volume] in Ser um or Plasma by Bromocresol green (BCG) dye binding methoOrdered By: Jolanta Mckenzie on 07-12-2023 Albumin BCG dye [Mass/Vol] 3.0 g/dL 3.5-5.7 [facility] Alkaline phosphatase [Enzyma tic activity/volume] in Serum or PlasmaOrdered By: Jolanta Mckenzie on 07-12-2023 ALP [Catalytic activity/Vol] 45 U/L 34-104 [facility] Aspartate aminotransferase [ Enzymatic activity/volume] in Serum or PlasmaOrdered By: Jolanta Mckenzie on 07-12-2023 AST [Catalytic activity/Vol] 14 U/L 13-39 [facility] Bilirubin.total [Mass/volume ] in Serum or PlasmaOrdered By: Jolanta Mckenzie on 07-12-2023 Bilirubin [Mass/Vol] 0.3 mg/dL 0.3-1.0 [facility] Globulin Calc (S) [Mass/Vol] Ordered By: Jolanta Mckenzie on 07-12-2023 Globulin (S) [Mass/Vol] 2.7 g/dL [facility] Protein [Mass/volume] in Ser um or PlasmaOrdered By: Jolanta Mckenzie on 07-12-2023 Protein [Mass/Vol] 5.7 g/dL 6.4-8.9 [facility] Serum or plasma albumin/glob ulin mass ratioOrdered By: Jolanta Mckenzie on 07-12-2023 Albumin/Globulin [Mass ratio] 1.1 {ratio} [facility] Acanthocytes [Presence] in B lood by Light microscopyOrdered By: Marshall Dominguez on 07-10-2023 Acanthocytes LM Ql (Bld) Slight [facility] Aerobic cultureOrdered By: Viki Mckenzie on 07-10-2023 Bacteria identified Aer cx Nom (Unsp spec) [facility] Anisocytosis LM Ql (Bld)Orde red By: Marshall Dominguez on 07-10-2023 Anisocytosis Ql (Bld) Moderate [facility] Automated erythrocytes count in urine sediment (number/area)Ordered By: Marshall Dominguez on 07-10-2023 RBC Auto (Urine sed) [#/Area] 3-4 [HPF] 0-4 [facility] Automated leukocytes count i n urine sediment (number/area)Ordered By: Marshall Dominguez on 07-10-2023 WBC Auto (Urine sed) [#/Area] Innumerable [HPF] 0-4 [facility] Bacterial blood cultureOrder ed By: Marshall Dominguez on 07-10-2023 Bacteria identified Cx Nom (Bld) NO GROWTH 5 DAYS [facility] Basophils Auto (Bld) [#/Vol] Ordered By: Marshall Dominguez on 07-10-2023 Basophils (Bld) [#/Vol] 0.0 10*3/uL 0.0-0.2 [facility] Basophils/100 WBC Auto (Bld) Ordered By: Marshall Dominguez on 07-10-2023 Basophils/100 WBC (Bld) 0.2 % . [facility] Bilirubin Test strip Ql (U)O rdered By: Marshall Dominguez on 07-10-2023 Bilirubin Ql (U) Negative Negative [facility] Calcium [Mass/volume] in Ser um or PlasmaOrdered By: Marshall Dominguez on 07-10-2023 Calcium [Mass/Vol] 8.9 mg/dL 8.6-10.3 [facility] Carbon dioxide, total [Moles /volume] in Serum or PlasmaOrdered By: Marshall Dominguez on 07-10-2023 CO2 [Moles/Vol] 32.4 mmol/L 21.0-31.0 [facility] Chloride [Moles/volume] in S kaveh or PlasmaOrdered By: Marshall Dominguez on 07-10-2023 Chloride [Moles/Vol] 105 mmol/L 98-107 [facility] Color Auto (U)Ordered By: Ruslan Dominguez on 07-10-2023 Color (U) Yellow Yellow [facility] Creatinine [Mass/volume] in Serum or PlasmaOrdered By: Marshall Dominguez on 07-10-2023 Creatinine [Mass/Vol] 1.56 mg/dL 0.60-1.20 [facility] Eosinophils Auto (Bld) [#/Vo l]Ordered By: Marshall Dominguez on 07-10-2023 Eosinophils (Bld) [#/Vol] 0.1 10*3/uL 0.0-0.45 [facility] Eosinophils/100 WBC Auto (Bl d)Ordered By: Marshall Dominguez on 07-10-2023 Eosinophils/100 WBC (Bld) 0.4 % . [facility] Erythrocyte distribution wid th Auto (RBC) [Ratio]Ordered By: Marshall Dominguez on 07-10-2023 Erythrocyte distribution width (RBC) [Ratio] 22.2 % 11.9-15.3 [facility] Glucose [Mass/volume] in Ser um or PlasmaOrdered By: Marshall Dominguez on 07-10-2023 Glucose [Mass/Vol] 83 mg/dL 70-100 [facility] Comment on above: ADA recommended refe rence rangeRandom Glucose Reference Range is dependent on time and content of last meal. Glucose of more than 200 mg/dL in a nonstressed, ambulatory subject supports the diagnosis of Diabetes Mellitus. Gram stain for investigation of transfusion reactionOrdered By: Jolanta Mckenzie on 07-10-2023 Microscopic observation Gram stain Nom (Unsp spec) [facility] Hematocrit Auto (Bld) [Volum e fraction]Ordered By: Marshall Dominguez on 07-10-2023 Hematocrit (Bld) [Volume fraction] 34.4 % 34.0-46.4 [facility] Hemoglobin [Mass/volume] in BloodOrdered By: Marshall Dominguez on 07-10-2023 Hemoglobin (Bld) [Mass/Vol] 11.0 g/dL 11.8-15.4 [facility] Hypochromia LM Ql (Bld)Order ed By: Marshall Dominguez on 07-10-2023 Hypochromia Ql (Bld) Slight [facility] INR in Platelet poor plasma by Coagulation assayOrdered By: Marshall Dominguez on 07-10-2023 INR Coag (PPP) [Relative time] 0.9 {INR} [facility] Comment on above: INR Therapeutic Rang e [...] on 07-10-2023 Ketones (U) [Mass/Vol] Negative Negative [facility] - UrinalysisOrder ed By: Marshall Dominguez on 07-10-2023 Hyaline casts LM Ql (Urine sed) 0-8 [LPF] 0-8 [facility] Lactate [Moles/volume] in Se rum or PlasmaOrdered By: Marshall Dominguez on 07-10-2023 Lactate [Moles/Vol] 1.6 mmol/L 0.5-2.2 [facility] Leukocytes [#/volume] correc juma for nucleated erythrocytes in Blood by Automated counOrdered By: Marshall Dominguez on 07-10-2023 WBC corrected for nucl RBC Auto (Bld) [#/Vol] 21.3 10*3/uL 3.8-11.6 [facility] Lymphocytes Auto (Bld) [#/Vo l]Ordered By: Marshall Dominguez on 07-10-2023 Lymphocytes (Bld) [#/Vol] 6.7 10*3/uL 1.00-4.8 [facility] Lymphocytes/100 WBC Auto (Bl d)Ordered By: Marshall Dominguez on 07-10-2023 Lymphocytes/100 WBC (Bld) 31.5 % . [facility] MCH Auto (RBC) [Entitic mass ]Ordered By: Marshall Dominguez on 07-10-2023 MCH (RBC) [Entitic mass] 26.5 pg 24.7-34.3 [facility] MCHC Auto (RBC) [Mass/Vol]Or dered By: Marshall Dominguez on 07-10-2023 MCHC (RBC) [Mass/Vol] 32.0 g/dL 32.0-35.0 [facility] MCV Auto (RBC) [Entitic vol] Ordered By: Marshall Dominguez on 07-10-2023 MCV (RBC) [Entitic vol] 82.7 fL 80-100 [facility] Microcytes LM Ql (Bld)Ordere d By: Marshall Dominguez on 07-10-2023 Microcytes Ql (Bld) Moderate [facility] Monocytes Auto (Bld) [#/Vol] Ordered By: Marshall Dominguez on 07-10-2023 Monocytes (Bld) [#/Vol] 1.4 10*3/uL 0.0-0.8 [facility] Monocytes/100 WBC Auto (Bld) Ordered By: Marshall Dominguez on 07-10-2023 Monocytes/100 WBC (Bld) 6.5 % . [facility] Natriuretic peptide B [Mass/ Vol]Ordered By: Marshall Dominguez on 07-10-2023 Natriuretic peptide B (Bld) [Mass/Vol] 54.0 pg/mL 5-100 [facility] Neutrophils Auto (Bld) [#/Vo l]Ordered By: Marshall Dominguez on 07-10-2023 Neutrophils (Bld) [#/Vol] 13.1 10*3/uL 1.8-7.7 [facility] Neutrophils/100 WBC Auto (Bl d)Ordered By: Marshall Dominguez on 07-10-2023 Neutrophils/100 WBC (Bld) 61.4 % . [facility] Nitrite Test strip Ql (U)Ord ered By: Marshall Dominguez on 07-10-2023 Nitrite Ql (U) Positive Negative [facility] No Panel InformationOrdered By: Marshall Dominguez on 07-10-2023 Estimated GFR (CKD-EPI) 34.030 mL/Min [facility] Creatinine Clearance (Chem N/A [facility] Nucleated erythrocytes [Pres ence] in Blood by Automated countOrdered By: Marshall Dominguez on 07-10-2023 Nucleated RBC Auto Ql (Bld) 0.1 /100{WBC} 0-0.5 [facility] Ovalocyte detectionOrdered B y: Marshall Dominguez on 07-10-2023 Ovalocytes LM Ql (Bld) [facility] Platelet adequacy [Presence] in Blood by Light microscopyOrdered By: Marshall Dominguez on 07-10-2023 Platelets LM Ql (Bld) Normal Normal [facility] Platelet mean volume Auto (B ld) [Entitic vol]Ordered By: Marshall Dominguez on 07-10-2023 Platelet mean volume (Bld) [Entitic vol] 8.0 fL 6.3-10.7 [facility] Platelet morphology finding [Identifier] in BloodOrdered By: Marshall Dominguez on 07-10-2023 Platelet morphology finding Nom (Bld) N/A [facility] Platelets Auto (Bld) [#/Vol] Ordered By: Marshall Dominguez on 07-10-2023 Platelets (Bld) [#/Vol] 250 10*3/uL 150-450 [facility] Poikilocytosis [Presence] in Blood by Light microscopyOrdered By: Marshall Dominguez on 07-10-2023 Poikilocytosis LM Ql (Bld) Slight [facility] Polychromasia [Presence] in Blood by Light microscopyOrdered By: Marshall Dominguez on 07-10-2023 Polychromasia LM Ql (Bld) Slight [facility] Potassium [Moles/volume] in Serum or PlasmaOrdered By: Marshall Dominguez on 07-10-2023 Potassium [Moles/Vol] 3.9 mmol/L 3.5-5.1 [facility] Protein Auto test strip (U) [Mass/Vol]Ordered By: Marshall Dominguez on 07-10-2023 Protein (U) [Mass/Vol] 30 mg/dL Negative [facility] Prothrombin time (PT)Ordered By: Marshall Dominguez on 07-10-2023 PT Coag (PPP) [Time] 10.6 s 9.0-12.9 [facility] Comment on above: A hematocrit value g reater than 55% may lead to inaccurate results in coagulation testing. Patients having hematocrit values >55% require a special collection tube for coagulation studies. Please contact the laboratory at [phone] for redraw instructions. RBC Auto (Bld) [#/Vol]Ordere d By: Marshall Dominguez on 07-10-2023 RBC (Bld) [#/Vol] 4.17 10*6/uL 3.60-5.00 [facility] RBC morphologyOrdered By: Ruslan Dominguez on 07-10-2023 RBC morphology finding Nom (Bld) N/A [facility] Serum or plasma anion gap de terminationOrdered By: Marshall Dominguez on 07-10-2023 Anion gap [Moles/Vol] 9.5 mmol/L 6.0-15.0 [facility] Sodium [Moles/volume] in Ser um or PlasmaOrdered By: Marshall Dominguez on 07-10-2023 Sodium [Moles/Vol] 143 mmol/L 136-145 [facility] Specific gravity Auto test s trip (U) [Rel density]Ordered By: Marshall Dominguez on 07-10-2023 Specific gravity (U) [Rel density] 1.022 1.001-1.03 0 [facility] Squamous epithelial cells de tection in urine sediment by light microscopyOrdered By: Marshall Dominguez on 07-10-2023 Epithelial cells.squamous LM Ql (Urine sed) 1-2 [HPF] 0-2 [facility] Teardrop cell detectionOrder ed By: Marshall Dominguez on 07-10-2023 Dacrocytes LM Ql (Bld) Slight [facility] Troponin I.cardiac [Mass/vol ume] in Serum or Plasma by Detection limit <= 0.01 ng/Ordered By: Marshall Dominguez on 07-10-2023 Troponin I.cardiac DL <= 0.01 ng/mL [Mass/Vol] 11.7 pg/mL 0.0-15.0 [facility] Urea nitrogen [Mass/volume] in Serum or PlasmaOrdered By: Marshall Dominguez on 07-10-2023 Urea nitrogen [Mass/Vol] 36 mg/dL 7-25 [facility] Urine bacteria detection by automated methodOrdered By: Marshall Dominguez on 07-10-2023 Bacteria Auto Ql (U) 2+ None Seen [facility] Urine clarity by refractomet ry automatedOrdered By: Marshall Dominguez on 07-10-2023 Clarity Refractometry automated (U) Cloudy Clear [facility] Urine culture routineOrdered By: Marshall Dominguez on 07-10-2023 Bacteria identified Cx Nom (U) Proteus mirabilis [facility] Urine glucose measurement by automated test strip (mass/volume)Ordered By: Marshall Dominguez on 07-10-2023 Glucose Auto test strip (U) [Mass/Vol] Normal mg/dL Normal [facility] Urine hemoglobin detection b y automated test stripOrdered By: Marshall Dominguez on 07-10-2023 Hemoglobin Auto test strip Ql (U) Negative Negative [facility] Urine leukocyte esterase det ection by automated test stripOrdered By: Marshall Dominguez on 07-10-2023 Leukocyte esterase Auto test strip Ql (U) 4+ Negative [facility] Urobilinogen Auto test strip (U) [Mass/Vol]Ordered By: Marshall Dominguez on 07-10-2023 Urobilinogen (U) [Mass/Vol] Normal mg/dL Normal [facility] WBC Auto (Bld) [#/Vol]Ordere d By: Marshall Dominguez on 07-10-2023 WBC (Bld) [#/Vol] 21.3 10*3/uL 3.8-11.6 [facility] pH Auto test strip (U)Ordere d By: Marshall Dominguez on 07-10-2023 pH (U) 8.5 [pH] 5.0-9.0 [facility] Alanine aminotransferase [En zymatic activity/volume] in Serum or PlasmaOrdered By: Kadie Jones on 06-17-2023 ALT [Catalytic activity/Vol] 14 U/L 7-52 [facility] Albumin [Mass/volume] in Ser um or Plasma by Bromocresol green (BCG) dye binding methoOrdered By: Kadie Bullimore on 06-17-2023 Albumin BCG dye [Mass/Vol] 3.4 g/dL 3.5-5.7 [facility] Alkaline phosphatase [Enzyma tic activity/volume] in Serum or PlasmaOrdered By: Kadie Bullimore on 06-17-2023 ALP [Catalytic activity/Vol] 48 U/L 34-104 [facility] Aspartate aminotransferase [ Enzymatic activity/volume] in Serum or PlasmaOrdered By: Kadie Bullimore on 06-17-2023 AST [Catalytic activity/Vol] 15 U/L 13-39 [facility] Basophils Auto (Bld) [#/Vol] Ordered By: Kadie Bullimore on 06-17-2023 Basophils (Bld) [#/Vol] 0.1 10*3/uL 0.0-0.2 [facility] Basophils/100 WBC Auto (Bld) Ordered By: Kadie Bullimore on 06-17-2023 Basophils/100 WBC (Bld) 0.3 % . [facility] Bilirubin.total [Mass/volume ] in Serum or PlasmaOrdered By: Kadie Bullimore on 06-17-2023 Bilirubin [Mass/Vol] 0.4 mg/dL 0.3-1.0 [facility] Calcium [Mass/volume] in Ser um or PlasmaOrdered By: Kadie Bullimore on 06-17-2023 Calcium [Mass/Vol] 9.5 mg/dL 8.6-10.3 [facility] Carbon dioxide, total [Moles /volume] in Serum or PlasmaOrdered By: Kadie Bullimore on 06-17-2023 CO2 [Moles/Vol] 34.6 mmol/L 21.0-31.0 [facility] Chloride [Moles/volume] in S kaveh or PlasmaOrdered By: Kadie Bullimore on 06-17-2023 Chloride [Moles/Vol] 104 mmol/L 98-107 [facility] Creatinine [Mass/volume] in Serum or PlasmaOrdered By: Kadie Bullimore on 06-17-2023 Creatinine [Mass/Vol] 1.24 mg/dL 0.60-1.20 [facility] Eosinophils Auto (Bld) [#/Vo l]Ordered By: Kadie Jones on 06-17-2023 Eosinophils (Bld) [#/Vol] 0.0 10*3/uL 0.0-0.45 [facility] Eosinophils/100 WBC Auto (Bl d)Ordered By: Kadieruslan Jones on 06-17-2023 Eosinophils/100 WBC (Bld) 0.2 % . [facility] Erythrocyte distribution wid th Auto (RBC) [Ratio]Ordered By: Kadieruslan Jones on 06-17-2023 Erythrocyte distribution width (RBC) [Ratio] 21.5 % 11.9-15.3 [facility] Globulin Calc (S) [Mass/Vol] Or[facility] By: [facility] on 06-17-2023 Globulin (S) [Mass/Vol] 2.9 g/dL [facility] Glucose [Mass/volume] in Ser um or PlasmaOrdered By: [facility]lan [facility] on 06-17-2023 Glucose [Mass/Vol] 103 mg/dL 70-100 [facility] Comment on above: ADA recommended refe rence rangeRandom Glucose Reference Range is dependent on time and content of last meal. Glucose of more than 200 mg/dL in a nonstressed, ambulatory subject supports the diagnosis of Diabetes Mellitus. Hematocrit Auto (Bld) [Volum e fraction]Ordered By: Kadie Jones on 06-17-2023 Hematocrit (Bld) [Volume fraction] 34.6 % 34.0-46.4 [facility] Hemoglobin [Mass/volume] in BloodOrdered By: Kadie Jones on 06-17-2023 Hemoglobin (Bld) [Mass/Vol] 10.9 g/dL 11.8-15.4 [facility] Leukocytes [#/volume] correc juma for nucleated erythrocytes in Blood by Automated counOrdered By: Kadieruslan Jones on 06-17-2023 WBC corrected for nucl RBC Auto (Bld) [#/Vol] 17.4 10*3/uL 3.8-11.6 [facility] Lymphocytes Auto (Bld) [#/Vo l]Ordered By: Kadieruslan Jones on 06-17-2023 Lymphocytes (Bld) [#/Vol] 3.7 10*3/uL 1.00-4.8 [facility] Lymphocytes/100 WBC Auto (Bl d)Ordered By: Kadie Bullimore on 06-17-2023 Lymphocytes/100 WBC (Bld) 21.2 % . [facility] MCH Auto (RBC) [Entitic mass ]Ordered By: Kadie Bullimore on 06-17-2023 MCH (RBC) [Entitic mass] 24.8 pg 24.7-34.3 [facility] MCHC Auto (RBC) [Mass/Vol]Or dered By: Kadie Bullimore on 06-17-2023 MCHC (RBC) [Mass/Vol] 31.5 g/dL 32.0-35.0 [facility] MCV Auto (RBC) [Entitic vol] Ordered By: Kadie Bullimore on 06-17-2023 MCV (RBC) [Entitic vol] 78.7 fL 80-100 [facility] Monocyte distribution width [Entitic volume] in Blood by AutomatedOrdered By: Kadie Bullimore on 06-17-2023 Monocyte distribution width Auto (Bld) [Entitic vol] 20.88 % 0.00-20.00 [facility] Comment on above: For adults in ED, MD W > 20.0 may be associated with a higher risk of sepsis during the first 12 hrs of hospital admission Monocytes Auto (Bld) [#/Vol] Ordered By: Kadie Bullimore on 06-17-2023 Monocytes (Bld) [#/Vol] 1.1 10*3/uL 0.0-0.8 [facility] Monocytes/100 WBC Auto (Bld) Ordered By: Kadie Bullimore on 06-17-2023 Monocytes/100 WBC (Bld) 6.6 % . [facility] Natriuretic peptide B [Mass/ Vol]Ordered By: Kadie Bullimore on 06-17-2023 Natriuretic peptide B (Bld) [Mass/Vol] 109.0 pg/mL 5-100 [facility] Neutrophils Auto (Bld) [#/Vo l]Ordered By: Kadie Bullimore on 06-17-2023 Neutrophils (Bld) [#/Vol] 12.4 10*3/uL 1.8-7.7 [facility] Neutrophils/100 WBC Auto (Bl d)Ordered By: Kadie Abhilashimore on 06-17-2023 Neutrophils/100 WBC (Bld) 71.7 % . [facility] No Panel InformationOrdered By: Kadie Bullimore on 06-17-2023 Estimated GFR (CKD-EPI) 44.823 mL/Min [facility] Pharmacy Creatinine Clearance (Chem 35.64 [facility] Nucleated erythrocytes [Pres ence] in Blood by Automated countOrdered By: Kadie Bullimore on 06-17-2023 Nucleated RBC Auto Ql (Bld) 0.1 /100{WBC} 0-0.5 [facility] Platelet mean volume Auto (B ld) [Entitic vol]Ordered By: Kadie Bullimore on 06-17-2023 Platelet mean volume (Bld) [Entitic vol] 7.4 fL 6.3-10.7 [facility] Platelets Auto (Bld) [#/Vol] Ordered By: Kadie Bullimore on 06-17-2023 Platelets (Bld) [#/Vol] 257 10*3/uL 150-450 [facility] Potassium [Moles/volume] in Serum or PlasmaOrdered By: Kadie Bullimore on 06-17-2023 Potassium [Moles/Vol] 3.7 mmol/L 3.5-5.1 [facility] Protein [Mass/volume] in Ser um or PlasmaOrdered By: Kadie Bullimore on 06-17-2023 Protein [Mass/Vol] 6.3 g/dL 6.4-8.9 [facility] RBC Auto (Bld) [#/Vol]Ordere d By: Kadie Bullimore on 06-17-2023 RBC (Bld) [#/Vol] 4.39 10*6/uL 3.60-5.00 [facility] Serum or plasma albumin/glob ulin mass ratioOrdered By: Kadie Bullimore on 06-17-2023 Albumin/Globulin [Mass ratio] 1.2 {ratio} [facility] Serum or plasma anion gap de terminationOrdered By: Kadie Bullimore on 06-17-2023 Anion gap [Moles/Vol] 8.1 mmol/L 6.0-15.0 [facility] Sodium [Moles/volume] in Ser um or PlasmaOrdered By: Kadie Jones on 06-17-2023 Sodium [Moles/Vol] 143 mmol/L 136-145 [facility] Troponin I.cardiac [Mass/vol ume] in Serum or Plasma by Detection limit <= 0.01 ng/Ordered By: Kadie Jones on 06-17-2023 Troponin I.cardiac DL <= 0.01 ng/mL [Mass/Vol] 9.5 pg/mL 0.0-15.0 [facility] Urea nitrogen [Mass/volume] in Serum or PlasmaOrdered By: Kadie Jones on 06-17-2023 Urea nitrogen [Mass/Vol] 25 mg/dL 7-25 [facility] WBC Auto (Bld) [#/Vol]Ordere d By: Kadie Jones on 06-17-2023 WBC (Bld) [#/Vol] 17.4 10*3/uL 3.8-11.6 [facility] Anisocytosis LM Ql (Bld)Orde red By: Carla Hagan on 12-31-2022 Anisocytosis Ql (Bld) Moderate [facility] Basophils Auto (Bld) [#/Vol] Ordered By: Carla Hagan on 12-31-2022 Basophils (Bld) [#/Vol] N/A [facility] Basophils/100 WBC Auto (Bld) Ordered By: Carla Hagan on 12-31-2022 Basophils/100 WBC (Bld) N/A [facility] Basophils/100 WBC Manual cnt (Bld)Ordered By: Carla Hagan on 12-31-2022 Basophils/100 WBC (Bld) 1 % 0-2 [facility] Calcium [Mass/volume] in Ser um or PlasmaOrdered By: Carla Hagan on 12-31-2022 Calcium [Mass/Vol] 8.6 mg/dL 8.2-10.2 [facility] Carbon dioxide, total [Moles /volume] in Serum or PlasmaOrdered By: Carla Hagan on 12-31-2022 CO2 [Moles/Vol] 26.2 mmol/L 22.0-30.0 [facility] Chloride [Moles/volume] in S kaveh or PlasmaOrdered By: Carla Hagan on 12-31-2022 Chloride [Moles/Vol] 99 mmol/L 95-114 [facility] Creatinine and Glomerular fi ltration rate.predicted panel (S/P/Bld)Ordered By: Carla Hagan on 12-31-2022 Creatinine [Mass/Vol] 0.99 mg/dL 0.44-1.03 [facility] Eosinophils Auto (Bld) [#/Vo l]Ordered By: Carla Hagan on 12-31-2022 Eosinophils (Bld) [#/Vol] N/A [facility] Eosinophils/100 WBC Auto (Bl d)Ordered By: Carla Hagan on 12-31-2022 Eosinophils/100 WBC (Bld) N/A [facility] Eosinophils/100 WBC Manual c nt (Bld)Ordered By: Carla Hagan on 12-31-2022 Eosinophils/100 WBC (Bld) 1 % 1-3 [facility] Erythrocyte distribution wid th Auto (RBC) [Ratio]Ordered By: Carla Hagan on 12-31-2022 Erythrocyte distribution width (RBC) [Ratio] 15.7 % 11.9-15.3 [facility] Estimated glomerular filtrat ion rate (GFR) non- AmericanOrdered By: Carla Hagan on 12-31-2022 GFR/1.73 sq M.predicted among non-blacks MDRD (S/P/Bld) [Vol rate/Area] 54 mL/Min [facility] Giant platelets/100 leukocyt es [Ratio] in Blood by Manual countOrdered By: Carla Hagan on 12-31-2022 Giant platelets/100 WBC Manual cnt (Bld) [Ratio] 1 /100{WBC} [facility] Glucose [Mass/volume] in Ser um or PlasmaOrdered By: Carla Hagan on 12-31-2022 Glucose [Mass/Vol] 115 mg/dL 70-100 [facility] Comment on above: ADA recommended refe rence rangeRandom Glucose Reference Range is dependent on time and content of last meal. Glucose of more than 200 mg/dL in a nonstressed, ambulatory subject supports the diagnosis of Diabetes Mellitus. Helmet cell detectionOrdered By: Carla Hagan on 12-31-2022 Helmet cells LM Ql (Bld) Slight [facility] Hematocrit Auto (Bld) [Volum e fraction]Ordered By: Carla Hagan on 12-31-2022 Hematocrit (Bld) [Volume fraction] 30.2 % 34.0-46.4 [facility] Hemoglobin [Mass/volume] in BloodOrdered By: Carla Hagan on 12-31-2022 Hemoglobin (Bld) [Mass/Vol] 9.8 g/dL 11.8-15.4 [facility] Hypochromia LM Ql (Bld)Order ed By: Carla Hagan on 12-31-2022 Hypochromia Ql (Bld) Slight [facility] - Chemistry and C hemistry - challengeOrdered By: Carla Hagan on 12-31-2022 Magnesium [Mass/Vol] 1.5 mg/dL 1.6-2.6 [facility] Leukocytes [#/volume] correc juma for nucleated erythrocytes in Blood by Automated counOrdered By: Carla Hagan on 12-31-2022 WBC corrected for nucl RBC Auto (Bld) [#/Vol] 13.4 10*3/uL 3.8-11.6 [facility] Lymphocytes Auto (Bld) [#/Vo l]Ordered By: Carla Hagan on 12-31-2022 Lymphocytes (Bld) [#/Vol] N/A [facility] Lymphocytes/100 WBC Auto (Bl d)Ordered By: Carla Hagan on 12-31-2022 Lymphocytes/100 WBC (Bld) N/A [facility] Lymphocytes/100 WBC Manual c nt (Bld)Ordered By: Carla Hagan on 12-31-2022 Lymphocytes/100 WBC (Bld) 8 % 18-42 [facility] MCH Auto (RBC) [Entitic mass ]Ordered By: Carla Hagan on 12-31-2022 MCH (RBC) [Entitic mass] 25.3 pg 24.7-34.3 [facility] MCHC Auto (RBC) [Mass/Vol]Or dered By: Carla Hagan on 12-31-2022 MCHC (RBC) [Mass/Vol] 32.3 g/dL 32.0-35.0 [facility] MCV Auto (RBC) [Entitic vol] Ordered By: Carla Hagan on 12-31-2022 MCV (RBC) [Entitic vol] 78.2 fL 80-100 [facility] Microcytes LM Ql (Bld)Ordere d By: Carla Hagan on 12-31-2022 Microcytes Ql (Bld) Moderate [facility] Monocytes Auto (Bld) [#/Vol] Ordered By: Carla Hagan on 12-31-2022 Monocytes (Bld) [#/Vol] N/A [facility] Monocytes/100 WBC Auto (Bld) Ordered By: Carla Hagan on 12-31-2022 Monocytes/100 WBC (Bld) N/A [facility] Monocytes/100 WBC Manual cnt (Bld)Ordered By: Carla Hagan on 12-31-2022 Monocytes/100 WBC (Bld) 5 % 2-11 [facility] Neutrophils Auto (Bld) [#/Vo l]Ordered By: Carla Hagan on 12-31-2022 Neutrophils (Bld) [#/Vol] N/A [facility] Neutrophils/100 WBC Auto (Bl d)Ordered By: Carla Hagan on 12-31-2022 Neutrophils/100 WBC (Bld) N/A [facility] No Panel InformationOrdered By: Carla Hagan on 12-31-2022 Estimated GFR () > 60 mL/Min [facility] Comment on above: GFR estimated refere nce range: According to KDOQI guidelines, <60 ml/min/1.73m2 is sufficient to diagnose a patient with chronic kidney disease. Pharmacy Creatinine Clearance (Chem 45.60 [facility] Nucleated erythrocytes [Pres ence] in Blood by Automated countOrdered By: Carla Hagan on 12-31-2022 Nucleated RBC Auto Ql (Bld) N/A [facility] Phosphate [Mass/volume] in S kaveh or PlasmaOrdered By: Carla Hagan on 12-31-2022 Phosphate [Mass/Vol] 3.5 mg/dL 2.5-4.6 [facility] Platelet adequacy [Presence] in Blood by Light microscopyOrdered By: Carla Hagan on 12-31-2022 Platelets LM Ql (Bld) Normal Normal [facility] Platelet mean volume Auto (B ld) [Entitic vol]Ordered By: Carla Hagan on 12-31-2022 Platelet mean volume (Bld) [Entitic vol] 6.6 fL 6.3-10.7 [facility] Platelet morphology finding [Identifier] in BloodOrdered By: Carla Hagan on 12-31-2022 Platelet morphology finding Nom (Bld) Normal Normal [facility] Platelets Auto (Bld) [#/Vol] Ordered By: Carla Hagan on 12-31-2022 Platelets (Bld) [#/Vol] 447 10*3/uL 150-450 [facility] Poikilocytosis [Presence] in Blood by Light microscopyOrdered By: Carla Hagan on 12-31-2022 Poikilocytosis LM Ql (Bld) Slight [facility] Polychromasia [Presence] in Blood by Light microscopyOrdered By: Carla Hagan on 12-31-2022 Polychromasia LM Ql (Bld) Slight [facility] Potassium [Moles/volume] in Serum or PlasmaOrdered By: Carla Hagan on 12-31-2022 Potassium [Moles/Vol] 4.1 mmol/L 3.5-5.1 [facility] RBC Auto (Bld) [#/Vol]Ordere d By: Carla Hagan on 12-31-2022 RBC (Bld) [#/Vol] 3.86 10*6/uL 3.60-5.00 [facility] RBC morphologyOrdered By: Ra carey Hagan on 12-31-2022 RBC morphology finding Nom (Bld) N/A [facility] Segmented neutrophils/100 WB C Manual cnt (Bld)Ordered By: Carla Hagan on 12-31-2022 Segmented neutrophils/100 WBC (Bld) 86 % 50-70 [facility] Serum or plasma anion gap de terminationOrdered By: Carla Hagan on 12-31-2022 Anion gap [Moles/Vol] 12.9 mmol/L 6.0-15.0 [facility] Sodium [Moles/volume] in Ser um or PlasmaOrdered By: Carla Hagan on 12-31-2022 Sodium [Moles/Vol] 134 mmol/L 136-146 [facility] Urea nitrogen [Mass/volume] in Serum or PlasmaOrdered By: Carla Hagan on 12-31-2022 Urea nitrogen [Mass/Vol] 18 mg/dL 9-23 [facility] WBC Auto (Bld) [#/Vol]Ordere d By: Carla Hagan on 12-31-2022 WBC (Bld) [#/Vol] 13.4 10*3/uL 3.8-11.6 [facility] Creatine kinase [Enzymatic a ctivity/volume] in Serum or PlasmaOrdered By: Carla Hagan on 12-28-2022 CK [Catalytic activity/Vol] 108 U/L 22-269 [facility] Automated epithelial cells c ount in urine sediment (number/area)Ordered By: Maddy Morrissey on 12-27-2022 Epithelial cells Auto (Urine sed) [#/Area] 3-4 [HPF] 0-2 [facility] Automated erythrocytes count in urine sediment (number/area)Ordered By: Maddy Morrissey on 12-27-2022 RBC Auto (Urine sed) [#/Area] 0-1 [HPF] 0-4 [facility] Automated leukocytes count i n urine sediment (number/area)Ordered By: Maddy Morrissey on 12-27-2022 WBC Auto (Urine sed) [#/Area] 5-9 [HPF] 0-4 [facility] Bilirubin Test strip Ql (U)O rdered By: Maddy Morrissey on 12-27-2022 Bilirubin Ql (U) Negative Negative [facility] Color Auto (U)Ordered By: Corwin Morrissey on 12-27-2022 Color (U) Yellow Yellow [facility] Folate [Mass/volume] in Seru m or PlasmaOrdered By: Eve Mann on 12-27-2022 Folate [Mass/Vol] ng/mL >5.9 [facility] Comment on above: Folate reference ran ge: >5.9 ng/mlThe WHO technical consultation on folate and vitamin [id number] has determined that folate concentrations lessthan 4 ng/ml are considered deficient. Ketones Auto test strip (U) [Mass/Vol]Ordered By: Maddy Morrissey on 12-27-2022 Ketones (U) [Mass/Vol] Negative Negative [facility] Laboratory - Chemistry and C hemistry - challengeOrdered By: Eve Mann on 12-27-2022 Cobalamin (Vitamin B12) [Mass/Vol] 994 pg/mL 180-914 [facility] Nitrite Test strip Ql (U)Ord ered By: Maddy Morrissey on 12-27-2022 Nitrite Ql (U) Positive Negative [facility] Protein Auto test strip (U) [Mass/Vol]Ordered By: Maddy Morrissey on 12-27-2022 Protein (U) [Mass/Vol] Trace mg/dL Negative F [facility] Specific gravity Auto test s trip (U) [Rel density]Ordered By: Maddy Morrissey on 12-27-2022 Specific gravity (U) [Rel density] > 1.050 1.001-1.03 0 [facility] Urine bacteria detection by automated methodOrdered By: Maddy Morrissey on 12-27-2022 Bacteria Auto Ql (U) 2+ None Seen [facility] Urine clarity by refractomet ry automatedOrdered By: Maddy Morrissey on 12-27-2022 Clarity Refractometry automated (U) Cloudy Clear [facility] Urine culture routineOrdered By: Maddy Morrissey on 12-27-2022 Bacteria identified Cx Nom (U) Escherichia coli [facility] Urine glucose measurement by automated test strip (mass/volume)Ordered By: Maddy Morrissey on 12-27-2022 Glucose Auto test strip (U) [Mass/Vol] Normal mg/dL Normal [facility] Urine hemoglobin detection b y automated test stripOrdered By: Maddy Morrissey on 12-27-2022 Hemoglobin Auto test strip Ql (U) Trace Negative [facility] Urine leukocyte esterase det ection by automated test stripOrdered By: Maddy Morrissey on 12-27-2022 Leukocyte esterase Auto test strip Ql (U) 3+ Negative [facility] Urobilinogen Auto test strip (U) [Mass/Vol]Ordered By: Maddy Morrissey on 12-27-2022 Urobilinogen (U) [Mass/Vol] Normal mg/dL Normal [facility] pH Auto test strip (U)Ordere d By: Maddy Morrissey on 12-27-2022 pH (U) 5.0 [pH] 5.0-9.0 [facility] Activated partial thrombopla stin time (aPTT) in platelet poor plasma by coagulation aOrdered By: Maddy Morrissey on 12-26-2022 aPTT Coag (PPP) [Time] 30.8 s 25.1-36.5 [facility] Basophils Auto (Bld) [#/Vol] Ordered By: Maddy Morrissey on 12-26-2022 Basophils (Bld) [#/Vol] 0.1 10*3/uL 0.0-0.2 [facility] Basophils/100 WBC Auto (Bld) Ordered By: Maddy Morrissey on 12-26-2022 Basophils/100 WBC (Bld) 0.5 % . [facility] Calcium [Mass/volume] in Ser um or PlasmaOrdered By: Maddy Morrissey on 12-26-2022 Calcium [Mass/Vol] 9.0 mg/dL 8.2-10.2 [facility] Carbon dioxide, total [Moles /volume] in Serum or PlasmaOrdered By: Maddy Morrissey on 12-26-2022 CO2 [Moles/Vol] 25.8 mmol/L 22.0-30.0 [facility] Chloride [Moles/volume] in S kaveh or PlasmaOrdered By: Maddy Morrissey on 12-26-2022 Chloride [Moles/Vol] 104 mmol/L 95-114 [facility] Creatinine and Glomerular fi ltration rate.predicted panel (S/P/Bld)Ordered By: Maddy Morrissey on 12-26-2022 Creatinine [Mass/Vol] 1.22 mg/dL 0.44-1.03 [facility] Eosinophils Auto (Bld) [#/Vo l]Ordered By: Maddy Morrissey on 12-26-2022 Eosinophils (Bld) [#/Vol] 0.1 10*3/uL 0.0-0.45 [facility] Eosinophils/100 WBC Auto (Bl d)Ordered By: Maddy Morrissey on 12-26-2022 Eosinophils/100 WBC (Bld) 1.1 % . [facility] Erythrocyte distribution wid th Auto (RBC) [Ratio]Ordered By: Maddy Morrissey on 12-26-2022 Erythrocyte distribution width (RBC) [Ratio] 15.9 % 11.9-15.3 [facility] Estimated glomerular filtrat ion rate (GFR) non- AmericanOrdered By: Maddy Morrissey on 12-26-2022 GFR/1.73 sq M.predicted among non-blacks MDRD (S/P/Bld) [Vol rate/Area] 43 mL/Min [facility] Glucose [Mass/volume] in Ser um or PlasmaOrdered By: Maddy Morrissey on 12-26-2022 Glucose [Mass/Vol] 128 mg/dL 70-100 [facility] Comment on above: ADA recommended refe rence rangeRandom Glucose Reference Range is dependent on time and content of last meal. Glucose of more than 200 mg/dL in a nonstressed, ambulatory subject supports the diagnosis of Diabetes Mellitus. Hematocrit Auto (Bld) [Volum e fraction]Ordered By: Maddy Morrissey on 12-26-2022 Hematocrit (Bld) [Volume fraction] 29.7 % 34.0-46.4 [facility] Hemoglobin [Mass/volume] in BloodOrdered By: Maddy Morrissey on 12-26-2022 Hemoglobin (Bld) [Mass/Vol] 9.3 g/dL 11.8-15.4 [facility] Laboratory - Chemistry and C hemistry - challengeOrdered By: Maddy Morrissey on 12-26-2022 Natriuretic peptide B (Bld) [Mass/Vol] 49.0 pg/mL 5-100 [facility] Laboratory - CoagulationOrde red By: Maddy Morrissey on 03-01-2023 PT Coag (PPP) [Time] 14.5 s 9.0-12.9 [facility] Leukocytes [#/volume] correc juma for nucleated erythrocytes in Blood by Automated counOrdered By: Maddy Morrissey on 12-26-2022 WBC corrected for nucl RBC Auto (Bld) [#/Vol] 12.0 10*3/uL 3.8-11.6 [facility] Lymphocytes Auto (Bld) [#/Vo l]Ordered By: Maddy Morrissey on 12-26-2022 Lymphocytes (Bld) [#/Vol] 3.0 10*3/uL 1.00-4.8 [facility] Lymphocytes/100 WBC Auto (Bl d)Ordered By: Maddy Morrissey on 12-26-2022 Lymphocytes/100 WBC (Bld) 24.8 % . [facility] MCH Auto (RBC) [Entitic mass ]Ordered By: Maddy Morrissey on 12-26-2022 MCH (RBC) [Entitic mass] 24.8 pg 24.7-34.3 [facility] MCHC Auto (RBC) [Mass/Vol]Or dered By: Maddy Morrissey on 12-26-2022 MCHC (RBC) [Mass/Vol] 31.2 g/dL 32.0-35.0 [facility] MCV Auto (RBC) [Entitic vol] Ordered By: Maddy Morrissey on 12-26-2022 MCV (RBC) [Entitic vol] 79.4 fL 80-100 [facility] Monocyte distribution width [Entitic volume] in Blood by AutomatedOrdered By: Maddy Morrissey on 12-26-2022 Monocyte distribution width Auto (Bld) [Entitic vol] 20.22 % 0.00-20.00 [facility] Comment on above: For adults in ED, MD W > 20.0 may be associated with a higher risk of sepsis during the first 12 hrs of hospital admission Monocytes Auto (Bld) [#/Vol] Ordered By: Maddy Morrissey on 12-26-2022 Monocytes (Bld) [#/Vol] 1.2 10*3/uL 0.0-0.8 [facility] Monocytes/100 WBC Auto (Bld) Ordered By: Maddy Morrissey on 12-26-2022 Monocytes/100 WBC (Bld) 10.1 % . [facility] Neutrophils Auto (Bld) [#/Vo l]Ordered By: Maddy Morrissey on 12-26-2022 Neutrophils (Bld) [#/Vol] 7.6 10*3/uL 1.8-7.7 [facility] Neutrophils/100 WBC Auto (Bl d)Ordered By: Maddy Morrissey on 12-26-2022 Neutrophils/100 WBC (Bld) 63.5 % . [facility] No Panel InformationOrdered By: Maddy Morrissey on 12-26-2022 Estimated GFR () 52 mL/Min [facility] Comment on above: GFR estimated refere nce range: According to KDOQI guidelines, <60 ml/min/1.73m2 is sufficient to diagnose a patient with chronic kidney disease. Pharmacy Creatinine Clearance (Chem 37.20 [facility] Nucleated erythrocytes [Pres ence] in Blood by Automated countOrdered By: Maddy Morrissey on 12-26-2022 Nucleated RBC Auto Ql (Bld) 0.1 /100{WBC} 0-0.5 [facility] Platelet mean volume Auto (B ld) [Entitic vol]Ordered By: Maddy Morrissey on 12-26-2022 Platelet mean volume (Bld) [Entitic vol] 6.5 fL 6.3-10.7 [facility] Platelet poor plasma interna tional normalized ratio (INR) by coagulation assay (relatOrdered By: Maddy Morrissey on 12-26-2022 INR Coag (PPP) [Relative time] 1.3 {INR} [facility] Comment on above: INR Therapeutic Rang e [...] 12-26-2022 Platelets (Bld) [#/Vol] 450 10*3/uL 150-450 [facility] Potassium [Moles/volume] in Serum or PlasmaOrdered By: Maddy Morrissey on 12-26-2022 Potassium [Moles/Vol] 3.9 mmol/L 3.5-5.1 [facility] RBC Auto (Bld) [#/Vol]Ordere d By: Maddy Morrissey on 12-26-2022 RBC (Bld) [#/Vol] 3.74 10*6/uL 3.60-5.00 [facility] Serum or plasma anion gap de terminationOrdered By: Maddy Morrissey on 12-26-2022 Anion gap [Moles/Vol] 10.1 mmol/L 6.0-15.0 [facility] Sodium [Moles/volume] in Ser um or PlasmaOrdered By: Maddy Morrissey on 12-26-2022 Sodium [Moles/Vol] 136 mmol/L 136-146 [facility] Troponin I.cardiac [Mass/vol ume] in Serum or Plasma by High sensitivity methodOrdered By: Maddy Morrissey on 12-26-2022 Troponin I.cardiac High sensitivity method [Mass/Vol] 6 pg/mL 0-15 [facility] Urea nitrogen [Mass/volume] in Serum or PlasmaOrdered By: Maddy Morrissey on 12-26-2022 Urea nitrogen [Mass/Vol] 21 mg/dL 9-23 [facility] WBC Auto (Bld) [#/Vol]Ordere d By: Maddy Morrissey on 12-26-2022 WBC (Bld) [#/Vol] 12.0 10*3/uL 3.8-11.6 [facility] Basophils Auto (Bld) [#/Vol] Ordered By: Hilario Yeung on 05-31-2022 Basophils (Bld) [#/Vol] 0.0 10*3/uL 0.0-0.2 [facility] Basophils/100 WBC Auto (Bld) Ordered By: Hilario Yeung on 05-31-2022 Basophils/100 WBC (Bld) 0.7 % . [facility] Blood hemoglobin measurement (mass/volume)Ordered By: Hilario Yeung on 05-31-2022 Hemoglobin (Bld) [Mass/Vol] 11.6 g/dL 11.8-15.4 [facility] Blood leukocytes automated c ount (number/volume)Ordered By: Hilario Yeung on 05-31-2022 WBC (Bld) [#/Vol] 5.9 10*3/uL 4.5-11.0 [facility] Creatinine and Glomerular fi ltration rate.predicted panel (S/P/Bld)Ordered By: Hilario Yeung on 05-31-2022 Creatinine [Mass/Vol] 1.22 mg/dL 0.44-1.03 [facility] Eosinophils Auto (Bld) [#/Vo l]Ordered By: Hilario Yeung on 05-31-2022 Eosinophils (Bld) [#/Vol] 0.3 10*3/uL 0.0-0.45 [facility] Eosinophils/100 WBC Auto (Bl d)Ordered By: Hilario Yeung on 05-31-2022 Eosinophils/100 WBC (Bld) 4.4 % . [facility] Erythrocyte distribution wid th Auto (RBC) [Ratio]Ordered By: Hilario Yeung on 05-31-2022 Erythrocyte distribution width (RBC) [Ratio] 16.9 % 11.9-15.3 [facility] Estimated glomerular filtrat ion rate (GFR) non- AmericanOrdered By: Hilario Yeung on 05-31-2022 GFR/1.73 sq M.predicted among non-blacks MDRD (S/P/Bld) [Vol rate/Area] 43 mL/Min [facility] Hematocrit Auto (Bld) [Volum e fraction]Ordered By: Hilario Yeung on 05-31-2022 Hematocrit (Bld) [Volume fraction] 36.6 % 34.0-46.4 [facility] Laboratory - Hematology and Cell countsOrdered By: Hilario Yeung on 05-31-2022 Nucleated RBC/100 WBC (Bld) [Ratio] 0.1 % 0-0.5 [facility] Lymphocytes Auto (Bld) [#/Vo l]Ordered By: Hilario Yeung on 05-31-2022 Lymphocytes (Bld) [#/Vol] 2.4 10*3/uL 1.00-4.8 [facility] Lymphocytes/100 WBC Auto (Bl d)Ordered By: Hilario Yeung on 05-31-2022 Lymphocytes/100 WBC (Bld) 41.3 % . [facility] MCH Auto (RBC) [Entitic mass ]Ordered By: Hilario Yeung on 05-31-2022 MCH (RBC) [Entitic mass] 25.8 pg 24.7-34.3 [facility] MCHC Auto (RBC) [Mass/Vol]Or dered By: Hilario Yeung on 05-31-2022 MCHC (RBC) [Mass/Vol] 31.7 g/dL 32.0-35.0 [facility] MCV Auto (RBC) [Entitic vol] Ordered By: Hilario Yeung on 05-31-2022 MCV (RBC) [Entitic vol] 81.4 fL 80-100 [facility] Monocytes Auto (Bld) [#/Vol] Ordered By: Hilario Yeung on 05-31-2022 Monocytes (Bld) [#/Vol] 0.6 10*3/uL 0.0-0.8 [facility] Monocytes/100 WBC Auto (Bld) Ordered By: Hilario Yeung on 05-31-2022 Monocytes/100 WBC (Bld) 10.6 % . [facility] Neutrophils Auto (Bld) [#/Vo l]Ordered By: Hilraio Yeung on 05-31-2022 Neutrophils (Bld) [#/Vol] 2.5 10*3/uL 1.8-7.7 [facility] Neutrophils/100 WBC Auto (Bl d)Ordered By: Hilario Yeung on 05-31-2022 Neutrophils/100 WBC (Bld) 43.0 % . [facility] No Panel InformationOrdered By: Hilario Yeung on 05-31-2022 Estimated GFR () 52 mL/Min [facility] Comment on above: GFR estimated refere nce range: According to KDOQI guidelines, <60 ml/min/1.73m2 is sufficient to diagnose a patient with chronic kidney disease. Pharmacy Creatinine Clearance (Chem 39.11 [facility] Platelet mean volume Auto (B ld) [Entitic vol]Ordered By: Hilario Yeung on 05-31-2022 Platelet mean volume (Bld) [Entitic vol] 7.5 fL 6.3-10.7 [facility] Platelets Auto (Bld) [#/Vol] Ordered By: Hilario Yeung on 05-31-2022 Platelets (Bld) [#/Vol] 209 10*3/uL 150-450 [facility] RBC Auto (Bld) [#/Vol]Ordere d By: Hilario Yeung on 05-31-2022 RBC (Bld) [#/Vol] 4.50 10*6/uL 3.60-5.00 [facility] Serum or plasma calcium roly urement (mass/volume)Ordered By: Hilario Yeung on 05-31-2022 Calcium [Mass/Vol] 9.1 mg/dL 8.2-10.2 [facility] Serum or plasma chloride deirdre surement (moles/volume)Ordered By: Hilario Yeung on 05-31-2022 Chloride [Moles/Vol] 100 mmol/L 95-114 [facility] Serum or plasma glucose roly urement (mass/volume)Ordered By: Hilario Yeung on 05-31-2022 Glucose [Mass/Vol] 99 mg/dL 70-100 [facility] Comment on above: ADA recommended refe rence range Random Glucose Reference Range is dependent on time and content of last meal. Glucose of more than 200 mg/dL in a nonstressed, ambulatory subject supports the diagnosis of Diabetes Mellitus. Serum or plasma potassium me asurement (moles/volume)Ordered By: Hilario Yeung on 05-31-2022 Potassium [Moles/Vol] 4.2 mmol/L 3.5-5.1 [facility] Serum or plasma sodium measu rement (moles/volume)Ordered By: Hilario Yeung on 05-31-2022 Sodium [Moles/Vol] 138 mmol/L 136-146 [facility] Serum or plasma total carbon dioxide measurement (moles/volume)Ordered By: Hilario Yeung on 05-31-2022 CO2 [Moles/Vol] 29.7 mmol/L 22.0-30.0 [facility] Serum or plasma urea nitroge n measurement (mass/volume)Ordered By: Hilario Yeung on 05-31-2022 Urea nitrogen [Mass/Vol] 13 mg/dL 9- [facility] SCREENING MAMMOGRAM W/[place], BILATERAL*on 04-27-2022 SCREENING MAMMOGRAM [...] VERY IMPORTANT TO YOUR HEALTH. THE CURRENT [employer] AND [employer]WORK GUIDELINES RECOMMENDS ANNUAL MAMMOGRAPHY BEGINNING AT AGE 40 THIS FACILITY USES A REMINDER SYSTEM TO ENSURE ALL PATIENTS RECEIVE REMINDER NOTIFICATIONS AT THE APPROPRIATE TIME BASED ON THE RECOMMENDATIONS OF THIS EXAM. Board Certified Radiologist. Accredited by the ACR and FDA. Report reported and signed by Edgar Hooper on 05/01/2022 [id number] [facility] [address] Low Dose Lung Screeningon 04-26-2022 [...] by Devonte Gomez on 04/27/2022 1239 Normal [facility] XR Hip Complete Left*on 02-25 XR [...] by Wicho Bowman on 03/14/2022 1550 Normal [facility] XR Spine Lumbar 4+ Views*on 03-14-2022 [...] by Wicho Bowman on 03/14/2022 1546 Normal [facility] CNPTOUTREACHon 12-20-2020 [facility] Patient Outreach ([facility]) -- GERA PERDUE ([id number]) 1945 F Date Time Provider Department 12/20/20 DERICK LOPEZ During your visit today, we recorded the following information about you: Allergies As of Date: 12/20/2020 Noted Allergy Reaction ASPRIN (ASPIRIN) 03/02/2019 1 - Mental Status Change Date Reviewed: 05/04/2020 Reviewed by: Prasad Phillips - Fully Assessed Order(s):SARS-COVID VACCINE 1ST DOSE APPT [22024GEF] Order #: [id number] FUTURE Prescriptions as of 12/20/2020 Sig: HYDROCODONE [...] [E66.9] 02/25/2015 Letter Text Encounter Status:Closed by [employer] PRODUSER on 12/23/20 [facility] PROGRESSon 05-03-2020 PROGRESS HNO ID: [id number] Author: Prasad Phillips Service: ? Author Type: Physician Type: Progress Notes Filed: 05/04/2020 8:19 PM Note Text: Gera Perdue : 1945 Detention: [facility] PCP: guanako Date last seen: 04/2020 [...] of right foot Prasad Phillips DPM Normal [facility] CBC Auto Differentialon 10-0 Basophils (Bld) [#/Vol] 0.03 10*3/uL [place] Basophils/100 WBC (Bld) 0 % 0 - 2 % [place] Differential Type NOT REPORTED [place] Eosinophils (Bld) [#/Vol] 0.14 10*3/uL [place] Eosinophils/100 WBC (Bld) 2 % 1 - 4 % [place] Erythrocyte distribution width (RBC) [Ratio] 15.0 % High 11.8 - 14.4 % [place] Hematocrit (Bld) [Volume fraction] 32.7 % Low 36.3 - 47.1 % [place] Hemoglobin (Bld) [Mass/Vol] 9.9 g/dL Low 11.9 - 15.1 g/dL [place] Immature granulocytes (Bld) [#/Vol] 0.03 10*3/uL [place] Immature granulocytes (Bld) [#/Vol] 0 % 0 [place] Interpretation and review of laboratory results Abnormal [place] Lymphocytes (Bld) [#/Vol] 1.67 10*3/uL [place] Lymphocytes/100 WBC (Bld) 22 % Low 24 - 43 % [place] MCH (RBC) [Entitic mass] 27.7 pg 25.2 - 33.5 pg [place] MCHC (RBC) [Mass/Vol] 30.3 g/dL 28.4 - 34.8 g/dL [place] MCV (RBC) [Entitic vol] 91.3 fL 82.6 - 102.9 fL [place] Monocytes (Bld) [#/Vol] 1.00 10*3/uL [place] Monocytes/100 WBC (Bld) 13 % High 3 - 12 % [place] Platelet mean volume (Bld) [Entitic vol] 9.1 fL 8.1 - 13.5 fL [place] Platelets (Bld) [#/Vol] 184 10*3/uL [place] Platelets (Bld) [#/Vol] NOT REPORTED [place] RBC (Bld) [#/Vol] 3.58 10*6/uL Low 3.95 - 5.11 m/uL [place] RBC morphology finding Nom (Bld) ANISOCYTOSIS PRESENT [place] Segmented neutrophils/100 WBC (Bld) 63 % 36 - 65 % [place] Segs Absolute 4.63 [place] WBC (Bld) [#/Vol] 7.5 10*3/uL [place] WBC (Bld) [#/Vol] 0.0 10*3/uL 0.0 per 100 WBC [place] WBC Morphology NOT REPORTED [place] CBC with Diffon 08-04-2019 Abs. Basophil 0.03 k/uL Normal 0.00-0.[address] [facility] Comment on above: Performed By: #### C DP #### [facility] [employer] [facility] [place] [address] Maintenance Mechanic Helper: Juan Peerra MD Abs.Imm.Granulocyte 0.03 k/uL Normal 0.00-0.[address] [facility] Comment on above: Performed By: #### C DP #### [place] [address] Maintenance Mechanic Helper: Juan Perera MD Abs.Neutrophil (Seg) 4.63 k/uL Normal 1.50-8.10 [facility] Comment on above: Performed By: #### C DP #### [place] [address] Maintenance Mechanic Helper: Juan Perera MD Basophils/100 WBC (Bld) 0 % Normal 0-[address] [facility] Comment on above: Performed By: #### C DP #### [place] [address] Maintenance Mechanic Helper: Juan Perera MD Eosinophils (Bld) [#/Vol] 0.14 10*3/uL Normal 0.00-0.[address] [facility] Comment on above: Performed By: #### C DP #### [place] [address] Maintenance Mechanic Helper: Juan Perera MD Eosinophils/100 WBC (Bld) 2 % Normal 1-[address] [facility] Comment on above: Performed By: #### C DP #### [place] [address] Maintenance Mechanic Helper: Juan Perera MD Erythrocyte distribution width (RBC) [Ratio] 15.0 % High 11.8-14.[address] [facility] Comment on above: Performed By: #### C DP #### [place] [address] Maintenance Mechanic Helper: Juan Perera MD Hematocrit (Bld) [Volume fraction] 32.7 % Low 36.3-47.[address] [facility] Comment on above: Performed By: #### C DP #### [address] [address] Maintenance Mechanic Helper: Juan Perera MD Hemoglobin (Bld) [Mass/Vol] 9.9 g/dL Low 11.9-15.[address] [facility] Comment on above: Performed By: #### C DP #### [address] [address] Maintenance Mechanic Helper: Juan Perera MD Immature granulocytes (Bld) [#/Vol] 0 % Normal [address] [facility] Comment on above: Performed By: #### C DP #### [address] [address] Maintenance Mechanic Helper: Juan Perera MD Lymphocytes (Bld) [#/Vol] 1.67 10*3/uL Normal 1.10-3.[address] [facility] Comment on above: Performed By: #### C DP #### [address] [address] Maintenance Mechanic Helper: Juan Perera MD Lymphocytes/100 WBC (Bld) 22 % Low 24-[address] [facility] Comment on above: Performed By: #### C DP #### [address] [address] Maintenance Mechanic Helper: Juan Perera MD MCH (RBC) [Entitic mass] 27.7 pg Normal 25.2-33.[address] [facility] Comment on above: Performed By: #### C DP #### [address] [address] Maintenance Mechanic Helper: Juan Perera MD MCHC (RBC) [Mass/Vol] 30.3 g/dL Normal 28.4-34.8 [facility] Comment on above: Performed By: #### C DP #### [address] [address] Maintenance Mechanic Helper: Juan Perera MD MCV (RBC) [Entitic vol] 91.3 fL Normal 82.6-102.[address] [facility] Comment on above: Performed By: #### C DP #### [address] [address] Maintenance Mechanic Helper: Juan Perera MD Monocytes (Bld) [#/Vol] 1.00 10*3/uL Normal 0.10-1.[address] [facility] Comment on above: Performed By: #### C DP #### [address] [address] Maintenance Mechanic Helper: Juan Perera MD Monocytes/100 WBC (Bld) 13 % High 3-[address] [facility] Comment on above: Performed By: #### C DP #### [address] [address] Maintenance Mechanic Helper: Juan Perera MD Neutrophil (Seg) 63 % Normal 36-65 [facility] Comment on above: Performed By: #### C DP #### [address] [address] Maintenance Mechanic Helper: Juan Perera MD NRBC Automated 0.0 per 100 WBC Normal 0.[address] [facility] Comment on above: Performed By: #### C DP #### [address] [address] Maintenance Mechanic Helper: Juan Perera MD Platelet mean volume (Bld) [Entitic vol] 9.1 fL Normal 8.1-13.[address] [facility] Comment on above: Performed By: #### C DP #### [address] [address] Maintenance Mechanic Helper: Juan Perera MD Platelets (Bld) [#/Vol] 184 10*3/uL Normal 138-[address] [facility] Comment on above: Performed By: #### C DP #### [address] [place] [address] Maintenance Mechanic Helper: Juan Perera MD RBC (Bld) [#/Vol] 3.58 10*6/uL Low 3.95-5.[address] [facility] Comment on above: Performed By: #### C DP #### [address] [address] Maintenance Mechanic Helper: Juan Perera MD RBC morphology finding Nom (Bld) ANISOCYTOSIS PRESENT Normal [facility] Comment on above: Performed By: #### C DP #### [address] [address] Maintenance Mechanic Helper: Juan Perera MD WBC (Bld) [#/Vol] 7.5 10*3/uL Normal 3.5-11.[address] [facility] Comment on above: Performed By: #### C DP #### [address] [address] Maintenance Mechanic Helper: Juan Perera MD Auto Diff Performed NOT REPORTED Normal [facility] Comment on above: Performed By: #### C DP #### [address] [address] Maintenance Mechanic Helper: Juan Perera MD Platelets (Bld) [#/Vol] NOT REPORTED Normal [facility] Comment on above: Performed By: #### C DP #### [address] [address] Maintenance Mechanic Helper: Juan Perera MD WBC Morphology NOT REPORTED Normal [facility] Comment on above: Performed By: #### C DP #### [address] [address] Maintenance Mechanic Helper: Juan Perera MD CBC Auto Differentialon -0 Basophils (Bld) [#/Vol] 0.04 10*3/uL [place] Basophils/100 WBC (Bld) 1 % 0 - 2 % [place] Differential Type NOT REPORTED [place] Eosinophils (Bld) [#/Vol] 0.19 10*3/uL [place] Eosinophils/100 WBC (Bld) 2 % 1 - 4 % [place] Erythrocyte distribution width (RBC) [Ratio] 15.5 % High 11.8 - 14.4 % [place] Hematocrit (Bld) [Volume fraction] 37.6 % 36.3 - 47.1 % [place] Hemoglobin (Bld) [Mass/Vol] 11.4 g/dL Low 11.9 - 15.1 g/dL [place] Immature granulocytes (Bld) [#/Vol] 10*3/uL [place] Immature granulocytes (Bld) [#/Vol] 0 % 0 [place] Interpretation and review of laboratory results Abnormal [place] Lymphocytes (Bld) [#/Vol] 1.70 10*3/uL [place] Lymphocytes/100 WBC (Bld) 22 % Low 24 - 43 % [place] MCH (RBC) [Entitic mass] 27.8 pg 25.2 - 33.5 pg [place] MCHC (RBC) [Mass/Vol] 30.3 g/dL 28.4 - 34.8 g/dL [place] MCV (RBC) [Entitic vol] 91.7 fL 82.6 - 102.9 fL [place] Monocytes (Bld) [#/Vol] 0.92 10*3/uL [place] Monocytes/100 WBC (Bld) 12 % 3 - 12 % [place] Platelet mean volume (Bld) [Entitic vol] 9.4 fL 8.1 - 13.5 fL [place] Platelets (Bld) [#/Vol] NOT REPORTED [place] Platelets (Bld) [#/Vol] 199 10*3/uL [place] RBC (Bld) [#/Vol] 4.10 10*6/uL 3.95 - 5.11 m/uL [place] RBC morphology finding Nom (Bld) ANISOCYTOSIS PRESENT [place] Segmented neutrophils/100 WBC (Bld) 63 % 36 - 65 % [place] Segs Absolute 4.97 [place] WBC (Bld) [#/Vol] 0.0 10*3/uL 0.0 per 100 WBC [place] WBC (Bld) [#/Vol] 7.8 10*3/uL [place] WBC Morphology NOT REPORTED [place] CBC with Diffon 08-03-2019 Abs. Basophil 0.04 k/uL Normal 0.00-0.[address] [facility] Comment on above: Performed By: #### C DP, CP #### [place] [address] Maintenance Mechanic Helper: Juan Perera MD Abs.Imm.Granulocyte <0.03 Normal 0.00-0.[address] [facility] Comment on above: Performed By: #### C DP, CP #### [place] [address] Maintenance Mechanic Helper: Juan Perera MD Abs.Neutrophil (Seg) 4.97 k/uL Normal 1.50-8.10 [facility] Comment on above: Performed By: #### C DP, CP #### [address] [address] Maintenance Mechanic Helper: Juan Perera MD Basophils/100 WBC (Bld) 1 % Normal 0-[address] [facility] Comment on above: Performed By: #### C DP, CP #### [address] [address] Maintenance Mechanic Helper: Juan Perera MD Eosinophils (Bld) [#/Vol] 0.19 10*3/uL Normal 0.00-0.[address] [facility] Comment on above: Performed By: #### C DP, CP #### [address] [place] [address] Maintenance Mechanic Helper: Juan Perera MD Eosinophils/100 WBC (Bld) 2 % Normal 1-[address] [facility] Comment on above: Performed By: #### C DP, CP #### [address] [address] Maintenance Mechanic Helper: Juan Perera MD Erythrocyte distribution width (RBC) [Ratio] 15.5 % High 11.8-14.[address] [facility] Comment on above: Performed By: #### C DP, CP #### [address] [address] Maintenance Mechanic Helper: Juan Perera MD Hematocrit (Bld) [Volume fraction] 37.6 % Normal 36.3-47.[address] [facility] Comment on above: Performed By: #### C DP, CP #### [address] [address] Maintenance Mechanic Helper: Juan Perera MD Hemoglobin (Bld) [Mass/Vol] 11.4 g/dL Low 11.9-15.[address] [facility] Comment on above: Performed By: #### C DP, CP #### [address] [address] Maintenance Mechanic Helper: Juan Perera MD Immature granulocytes (Bld) [#/Vol] 0 % Normal [address] [facility] Comment on above: Performed By: #### C DP, CP #### [address] [address] Maintenance Mechanic Helper: Juan Perera MD Lymphocytes (Bld) [#/Vol] 1.70 10*3/uL Normal 1.10-3.[address] [facility] Comment on above: Performed By: #### C DP, CP #### [address] [address] Maintenance Mechanic Helper: Juan Perera MD Lymphocytes/100 WBC (Bld) 22 % Low 24-[address] [facility] Comment on above: Performed By: #### C DP, CP #### [address] [address] Maintenance Mechanic Helper: Juan Perera MD MCH (RBC) [Entitic mass] 27.8 pg Normal 25.2-33.[address] [facility] Comment on above: Performed By: #### C DP, CP #### [address] [address] Maintenance Mechanic Helper: Juan Perera MD MCHC (RBC) [Mass/Vol] 30.3 g/dL Normal 28.4-34.8 [facility] Comment on above: Performed By: #### C DP, CP #### [address] [address] Maintenance Mechanic Helper: Juan Perera MD MCV (RBC) [Entitic vol] 91.7 fL Normal 82.6-102.[address] [facility] Comment on above: Performed By: #### C DP, CP #### [address] [address] Maintenance Mechanic Helper: Juan Perera MD Monocytes (Bld) [#/Vol] 0.92 10*3/uL Normal 0.10-1.[address] [facility] Comment on above: Performed By: #### C DP, CP #### [address] [address] Maintenance Mechanic Helper: Juan Perera MD Monocytes/100 WBC (Bld) 12 % Normal 3-[address] [facility] Comment on above: Performed By: #### C DP, CP #### [address] [address] Maintenance Mechanic Helper: Juan Perera MD Neutrophil (Seg) 63 % Normal 36-65 [facility] Comment on above: Performed By: #### C DP, CP #### [address] [address] Maintenance Mechanic Helper: Juan Perera MD NRBC Automated 0.0 per 100 WBC Normal 0.[address] [facility] Comment on above: Performed By: #### C DP, CP #### [address] [address] Maintenance Mechanic Helper: Juan Perera MD Platelet mean volume (Bld) [Entitic vol] 9.4 fL Normal 8.1-13.[address] [facility] Comment on above: Performed By: #### C DP, CP #### [address] [address] Maintenance Mechanic Helper: Juan Perera MD Platelets (Bld) [#/Vol] 199 10*3/uL Normal 138-[address] [facility] Comment on above: Performed By: #### C DP, CP #### [address] [address] Maintenance Mechanic Helper: Juan Perera MD RBC (Bld) [#/Vol] 4.10 10*6/uL Normal 3.95-5.[address] [facility] Comment on above: Performed By: #### C DP, CP #### [address] [address] Maintenance Mechanic Helper: Juan Perera MD RBC morphology finding Nom (Bld) ANISOCYTOSIS PRESENT Normal [facility] Comment on above: Performed By: #### C DP, CP #### [address] [address] Maintenance Mechanic Helper: Juan Perera MD WBC (Bld) [#/Vol] 7.8 10*3/uL Normal 3.5-11.[address] [facility] Comment on above: Performed By: #### C DP, CP #### [address] [address] Maintenance Mechanic Helper: Juan Perera MD Auto Diff Performed NOT REPORTED Normal [facility] Comment on above: Performed By: #### C DP, CP #### [address] [address] Maintenance Mechanic Helper: Juan Perera MD Platelets (Bld) [#/Vol] NOT REPORTED Normal [facility] Comment on above: Performed By: #### C DP, CP #### [address] [address] Maintenance Mechanic Helper: Juan Perera MD WBC Morphology NOT REPORTED Normal [facility] Comment on above: Performed By: #### C DP, CP #### [address] [address] Maintenance Mechanic Helper: Juan Perera MD Comp Metabolic Profon 2018 (cont.) Normal [facility] Comment on above: Result Comment: Aver age GFR for 70 or more years old: 75 mL/min/1.73sq m Chronic Kidney Disease: <60 mL/min/1.73sq m Kidney failure: <15 mL/min/1.73sq m eGFR calculated using average adult body mass. Additional eGFR calculator available at: http://www.[employer]pace.PayProp/multiple_crcl_2012.htm Performed By: #### C DP, CP #### [address] [address] Maintenance Mechanic Helper: Juan Perera MD Albumin [Mass/Vol] 2.7 g/dL Low 3.5-5.[address] [facility] Comment on above: Performed By: #### C DP, CP #### [address] [address] Maintenance Mechanic Helper: Juan Perera MD Albumin/Globulin [Mass ratio] 0.8 {ratio} Low 1.0-2.[address] [facility] Comment on above: Performed By: #### C DP, CP #### [address] [address] Maintenance Mechanic Helper: Juan Perera MD Alkaline Phos 65 U/L Normal 35-[address] [facility] Comment on above: Performed By: #### C DP, CP #### [address] [address] Maintenance Mechanic Helper: Juan Perera MD ALT [Catalytic activity/Vol] 8 U/L Normal 5-[address] [facility] Comment on above: Performed By: #### C DP, CP #### [address] [address] Maintenance Mechanic Helper: Juan Perera MD Anion gap [Moles/Vol] 12 mmol/L Normal 9-17 [facility] Comment on above: Performed By: #### C DP, CP #### [address] [address] Maintenance Mechanic Helper: Juan Perera MD AST [Catalytic activity/Vol] 13 U/L Normal <[address] [facility] Comment on above: Performed By: #### C DP, CP #### [address] [address] Maintenance Mechanic Helper: Juan Perera MD Bilirubin Ql (U) 0.41 mg/dL Normal 0.3-1.2 [facility] Comment on above: Performed By: #### C DP, CP #### [address] [address] Maintenance Mechanic Helper: Juan Perera MD Calcium [Mass/Vol] 8.3 mg/dL Low 8.6-10.[address] [facility] Comment on above: Performed By: #### C DP, CP #### [address] [address] Maintenance Mechanic Helper: Juan Perera MD Chloride [Moles/Vol] 108 mmol/L High 98-107 [facility] Comment on above: Performed By: #### C DP, CP #### [address] [address] Maintenance Mechanic Helper: Juan Perera MD CO2 [Moles/Vol] 22 mmol/L Normal 20-[address] [facility] Comment on above: Performed By: #### C DP, CP #### [address] [address] Maintenance Mechanic Helper: Juan Perera MD Creatinine [Mass/Vol] 0.72 mg/dL Normal 0.50-0.90 [facility] Comment on above: Performed By: #### C DP, CP #### [address] [address] Maintenance Mechanic Helper: Juan Perera MD GFR, Amer >60 Normal >60 [facility] Comment on above: Performed By: #### C DP, CP #### [address] [address] Maintenance Mechanic Helper: Juan Perera MD GFR,non Amer >60 Normal >60 [facility] Comment on above: Performed By: #### C DP, CP #### [address] [address] Maintenance Mechanic Helper: Juan Perera MD Glucose [Mass/Vol] 78 mg/dL Normal 70-[address] [facility] Comment on above: Performed By: #### C DP, CP #### [address] [address] Maintenance Mechanic Helper: Juan Perera MD Potassium [Moles/Vol] 3.9 mmol/L Normal 3.7-5.3 [facility] Comment on above: Performed By: #### C DP, CP #### [address] [address] Maintenance Mechanic Helper: Juan Perera MD Protein [Mass/Vol] 6.2 g/dL Low 6.4-8.[address] [facility] Comment on above: Performed By: #### C DP, CP #### [address] [address] Maintenance Mechanic Helper: Juan Perera MD Sodium [Moles/Vol] 142 mmol/L Normal 135-[address] [facility] Comment on above: Performed By: #### C DP, CP #### [address] [address] Maintenance Mechanic Helper: Juan Perera MD Urea nitrogen [Mass/Vol] 11 mg/dL Normal 8- [facility] Comment on above: Performed By: #### C DP, CP #### [address] [address] Maintenance Mechanic Helper: Juan Perera MD BUN/CRE Ratio NOT REPORTED Normal - [facility] Comment on above: Performed By: #### C DP, CP #### [address] [address] Maintenance Mechanic Helper: Juan Perera MD Staging: NOT REPORTED Normal [facility] Comment on above: Performed By: #### C DP, CP #### [address] [address] Maintenance Mechanic Helper: Juan Perera MD Comprehensive Metabolic Pane [facility] 08-03-2019 Albumin [Mass/Vol] 2.7 g/dL Low 3.5 - 5.2 g/dL [place] Albumin/Globulin [Mass ratio] 0.8 {ratio} Low [place] ALP [Catalytic activity/Vol] 65 U/L 35 - 104 U/L [place] ALT [Catalytic activity/Vol] 8 U/L 5 - 33 U/L [place] Anion gap [Moles/Vol] 12 mmol/L 9 - 17 mmol/L [place] AST [Catalytic activity/Vol] 13 U/L <32 [place] Bilirubin Ql (U) 0.41 mg/dL 0.3 - 1.2 mg/dL [place] Bun/Cre Ratio NOT REPORTED [place] Calcium [Mass/Vol] 8.3 mg/dL Low 8.6 - 10. 4 mg/dL [place] Chloride [Moles/Vol] 108 mmol/L High 98 - 10 7 mmol/L [place] CO2 [Moles/Vol] 22 mmol/L 20 - 31 mmol/L [place] Creatinine [Mass/Vol] 0.72 mg/dL 0.5 - 0.9 mg/dL [place] GFR >60 >60 mL/min [place] GFR Non- >60 >60 mL/min [place] GFR/1.73 sq M predicted among non-blacks MDRD (S/P/Bld) [Vol rate/Area] NOT REPORTED [place] GFR/1.73 sq M predicted among non-blacks MDRD (S/P/Bld) [Vol rate/Area] [place] Comment on above: Average GFR for 70 o r more years old: 75 mL/min/1.73sq m Chronic Kidney Disease: <60 mL/min/1.73sq m Kidney failure: <15 mL/min/1.73sq m eGFR calculated using average adult body mass. Additional eGFR calculator available at: http://www.Ciespace.PayProp/multiple_crcl_2012.htm Glucose [Mass/Vol] 78 mg/dL 70 - 99 mg/dL [place] Interpretation and review of laboratory results Abnormal [place] Potassium [Moles/Vol] 3.9 mmol/L 3.7 - 5.3 mmol/L [place] Protein [Mass/Vol] 6.2 g/dL Low 6.4 - 8.3 g/dL [place] Sodium [Moles/Vol] 142 mmol/L 135 - 144 mmol/L [place] Urea nitrogen [Mass/Vol] 11 mg/dL 8 - 23 mg/dL [place] XR ABDOMEN (KUB) (SINGLE AP VIEW)on [...] Martin Hope MD 08/03/[address] [facility] Nonspecific bowel ga s pattern. [place], [place] Robert, Mhpn Incoming R adiant Results From [employer] - 08/03/2019 9:28 AM EDT EXAMINATION: ONE SUPINE XRAY VIEW(S) OF THE ABDOMEN 08/03/2019 9:06 am COMPARISON: 08/02/2019 HISTORY: ORDERING SYSTEM PROVIDED HISTORY: SBO TECHNOLOGIST PROVIDED HISTORY: SBO Reason for Exam: supine FINDINGS: Nonspecific bowel gas pattern. No pathologic bowel dilatation. Gas throughout the colon. Rectal gas. Enteric tube within the stomach. No organomegaly. No suspicious calcifications. IMPRESSION: Nonspecific bowel gas pattern. [place] EXAMINATION: ONE SUP INE XRAY VIEW(S) OF THE ABDOMEN 08/03/2019 9:06 am COMPARISON: 08/02/2019 HISTORY: ORDERING SYSTEM PROVIDED HISTORY: SBO TECHNOLOGIST PROVIDED HISTORY: SBO Reason for Exam: supine FINDINGS: Nonspecific bowel gas pattern. No pathologic bowel dilatation. Gas throughout the colon. Rectal gas. Enteric tube within the stomach. No organomegaly. No suspicious calcifications. [place] CBC Auto Differentialon 10-0 Basophils (Bld) [#/Vol] 0.03 10*3/uL [place] Basophils/100 WBC (Bld) 0 % 0 - 2 % [place] Differential Type NOT REPORTED [place] Eosinophils (Bld) [#/Vol] 0.17 10*3/uL [place] Eosinophils/100 WBC (Bld) 2 % 1 - 4 % [place] Erythrocyte distribution width (RBC) [Ratio] 15.6 % High 11.8 - 14.4 % [place] Hematocrit (Bld) [Volume fraction] 36.3 % 36.3 - 47.1 % [place] Hemoglobin (Bld) [Mass/Vol] 11.7 g/dL Low 11.9 - 15.1 g/dL [place] Immature granulocytes (Bld) [#/Vol] 0 % 0 [place] Immature granulocytes (Bld) [#/Vol] 0.03 10*3/uL [place] Interpretation and review of laboratory results Abnormal [place] Lymphocytes (Bld) [#/Vol] 1.85 10*3/uL [place] Lymphocytes/100 WBC (Bld) 20 % Low 24 - 43 % [place] MCH (RBC) [Entitic mass] 27.9 pg 25.2 - 33.5 pg [place] MCHC (RBC) [Mass/Vol] 32.2 g/dL 28.4 - 34.8 g/dL [place] MCV (RBC) [Entitic vol] 86.6 fL 82.6 - 102.9 fL [place] Monocytes (Bld) [#/Vol] 1.08 10*3/uL [place] Monocytes/100 WBC (Bld) 12 % 3 - 12 % [place] Platelet mean volume (Bld) [Entitic vol] 9.3 fL 8.1 - 13.5 fL [place] Platelets (Bld) [#/Vol] 215 10*3/uL [place] Platelets (Bld) [#/Vol] NOT REPORTED [place] RBC (Bld) [#/Vol] 4.19 10*6/uL 3.95 - 5.11 m/uL [place] RBC morphology finding Nom (Bld) ANISOCYTOSIS PRESENT [place] Segmented neutrophils/100 WBC (Bld) 66 % High 36 - 65 % [place] Segs Absolute 6.12 [place] WBC (Bld) [#/Vol] 9.3 10*3/uL [place] WBC (Bld) [#/Vol] 0.0 10*3/uL 0.0 per 100 WBC [place] WBC Morphology NOT REPORTED [place] CBC with Diffon 08-02-2019 Abs. Basophil 0.03 k/uL Normal 0.00-0.[address] [facility] Comment on above: Performed By: #### L ACWB CDP, REJEC #### [address] [address] Maintenance Mechanic Helper: Juan Perera MD Abs.Imm.Granulocyte 0.03 k/uL Normal 0.00-0.[address] [facility] Comment on above: Performed By: #### L ACARAMIS GARY, REJEC #### [address] [address] Maintenance Mechanic Helper: Juan Perera MD Abs.Neutrophil (Seg) 6.12 k/uL Normal 1.50-8.10 [facility] Comment on above: Performed By: #### L ACWB CDP, REJEC #### [facility] [employer] [address] [place] [address] Maintenance Mechanic Helper: Juan Perera MD Basophils/100 WBC (Bld) 0 % Normal 0-[address] [facility] Comment on above: Performed By: #### L ACWB CDP, REJEC #### [facility] [employer] [address] [place] [phone] Maintenance Mechanic Helper: Juan Perera MD Eosinophils (Bld) [#/Vol] 0.17 10*3/uL Normal 0.00-0.[address] [facility] Comment on above: Performed By: #### L ACWSandi CDP, REJEC #### [address] [address] Maintenance Mechanic Helper: Juan Perera MD Eosinophils/100 WBC (Bld) 2 % Normal 1-[address] [facility] Comment on above: Performed By: #### L ACABDIRAHMAN CDP, REJEC #### [address] [address] Maintenance Mechanic Helper: Juan Perera MD Immature granulocytes (Bld) [#/Vol] 0 % Normal [address] [facility] Comment on above: Performed By: #### L ACWSandi CDP, REJEC #### [facility] [employer] [address] [place] [address] Maintenance Mechanic Helper: Juan Perera MD Lymphocytes (Bld) [#/Vol] 1.85 10*3/uL Normal 1.10-3.[address] [facility] Comment on above: Performed By: #### L ACWSandi CDP, REJEC #### [address] [address] Maintenance Mechanic Helper: Juan Perera MD Lymphocytes/100 WBC (Bld) 20 % Low 24-[address] [facility] Comment on above: Performed By: #### L ACABDIRAHMAN CDP, REJEC #### [address] [address] Maintenance Mechanic Helper: Juan Perera MD Monocytes (Bld) [#/Vol] 1.08 10*3/uL Normal 0.10-1.[address] [facility] Comment on above: Performed By: #### L ACWB CDP, REJEC #### [facility] [employer] [address] [place] [address] Maintenance Mechanic Helper: Juan Perera MD Monocytes/100 WBC (Bld) 12 % Normal 3-[address] [facility] Comment on above: Performed By: #### L ACWB CDP, REJEC #### [address] [address] Maintenance Mechanic Helper: Juan Perera MD Neutrophil (Seg) 66 % High 36-65 [facility] Comment on above: Performed By: #### L ACWARAMIS Junior, REJEC #### [address] [address] Maintenance Mechanic Helper: Juan Perera MD RBC morphology finding Nom (Bld) ANISOCYTOSIS PRESENT Normal [facility] Comment on above: Performed By: #### L ACWARAMIS Junior, REJEC #### [address] [address] Maintenance Mechanic Helper: Juan Perera MD Erythrocyte distribution width (RBC) [Ratio] 15.6 % High 11.8-14.[address] [facility] Comment on above: Performed By: #### L ACWARAMIS Junior, REJEC #### [facility] [employer] [address] [place] [phone] Maintenance Mechanic Helper: Juan Perera MD Hematocrit (Bld) [Volume fraction] 36.3 % Normal 36.3-47.[address] [facility] Comment on above: Performed By: #### L ARAMIS HO, REJEC #### [facility] [employer] [address] [place] [address] Maintenance Mechanic Helper: Juan Perera MD Hemoglobin (Bld) [Mass/Vol] 11.7 g/dL Low 11.9-15.[address] [facility] Comment on above: Performed By: #### L ACWARAMIS Junior, REJEC #### [facility] [employer] [address] [place] [address] Maintenance Mechanic Helper: Juan Perera MD MCH (RBC) [Entitic mass] 27.9 pg Normal 25.2-33.[address] [facility] Comment on above: Performed By: #### L ACWB CDP, REJEC #### [facility] [employer] [address] [place] [address] Maintenance Mechanic Helper: Juan Perera MD MCHC (RBC) [Mass/Vol] 32.2 g/dL Normal 28.4-34.8 [facility] Comment on above: Performed By: #### L ACWSandi CDP, REJEC #### [address] [address] Maintenance Mechanic Helper: Juan Perera MD MCV (RBC) [Entitic vol] 86.6 fL Normal 82.6-102.[address] [facility] Comment on above: Performed By: #### L ACWB CDP, REJEC #### [address] [address] Maintenance Mechanic Helper: Juan Perera MD NRBC Automated 0.0 per 100 WBC Normal 0[address] [facility] Comment on above: Performed By: #### L ACWARAMIS Junior, REJEC #### [address] [address] Maintenance Mechanic Helper: Juan Perera MD Platelet mean volume (Bld) [Entitic vol] 9.3 fL Normal 8.1-13.[address] [facility] Comment on above: Performed By: #### L ARAMIS HO, REJEC #### [address] [address] Maintenance Mechanic Helper: Juan Perera MD Platelets (Bld) [#/Vol] 215 10*3/uL Normal 138-[address] [facility] Comment on above: Performed By: #### L ACWSandi CDP, REJEC #### [facility] [employer] [address] [place] [address] Maintenance Mechanic Helper: Juan Perera MD RBC (Bld) [#/Vol] 4.19 10*6/uL Normal 3.95-5.[address] [facility] Comment on above: Performed By: #### L ACWSandi CDP, REJEC #### [address] [address] Maintenance Mechanic Helper: Juan Perera MD WBC (Bld) [#/Vol] 9.3 10*3/uL Normal 3.5-11.[address] [facility] Comment on above: Performed By: #### L ACARAMIS GARY, REJEC #### [facility] [place] [address] Maintenance Mechanic Helper: Juan Perera MD Auto Diff Performed NOT REPORTED Normal [facility] Comment on above: Performed By: #### L ACWARAMIS Junior, REJEC #### [facility] [address] [place] [address] Maintenance Mechanic Helper: Juan Perera MD Platelets (Bld) [#/Vol] NOT REPORTED Normal [facility] Comment on above: Performed By: #### L ACARAMIS GARY, REJEC #### [facility] [employer] [address] [place] [address] Maintenance Mechanic Helper: Juan Perera MD WBC Morphology NOT REPORTED Normal [facility] Comment on above: Performed By: #### L ACARAMIS GARY, REJEC #### [address] [address] Maintenance Mechanic Helper: Juan Perera MD Comp Metabolic Profon 2018 (cont.) Normal [facility] Comment on above: Result Comment: Aver age GFR for 70 or more years old: 75 mL/min/1.73sq m Chronic Kidney Disease: <60 mL/min/1.73sq m Kidney failure: <15 mL/min/1.73sq m eGFR calculated using average adult body mass. Additional eGFR calculator available at: http://www.Ciespace.com/multiple_crcl_2012.htm Performed By: #### C P #### [address] [address] Maintenance Mechanic Helper: Juan Perera MD Albumin [Mass/Vol] 3.1 g/dL Low 3.5-5.[address] [facility] Comment on above: Performed By: #### C P #### [address] [address] Maintenance Mechanic Helper: Juan Perera MD Albumin/Globulin [Mass ratio] 0.9 {ratio} Low 1.0-2.[address] [facility] Comment on above: Performed By: #### C P #### [address] [address] Maintenance Mechanic Helper: Juan Perera MD Alkaline Phos 68 U/L Normal 35-[address] [facility] Comment on above: Performed By: #### C P #### [address] [address] Maintenance Mechanic Helper: Juan Perera MD ALT [Catalytic activity/Vol] 8 U/L Normal 5-[address] [facility] Comment on above: Performed By: #### C P #### [address] [address] Maintenance Mechanic Helper: Juan Perera MD Anion gap [Moles/Vol] 9 mmol/L Normal 9-17 [facility] Comment on above: Performed By: #### C P #### [address] [address] Maintenance Mechanic Helper: Juan Perera MD AST [Catalytic activity/Vol] 11 U/L Normal <[address] [facility] Comment on above: Performed By: #### C P #### [address] [address] Maintenance Mechanic Helper: Juan Perera MD Bilirubin Ql (U) 0.39 mg/dL Normal 0.3-1.2 [facility] Comment on above: Performed By: #### C P #### [address] [address] Maintenance Mechanic Helper: Juan Perera MD Calcium [Mass/Vol] 8.6 mg/dL Normal 8.6-10.[address] [facility] Comment on above: Performed By: #### C P #### [address] [address] Maintenance Mechanic Helper: Juan Perera MD Chloride [Moles/Vol] 106 mmol/L Normal 98-107 [facility] Comment on above: Performed By: #### C P #### [address] [address] Maintenance Mechanic Helper: Juan Perera MD CO2 [Moles/Vol] 25 mmol/L Normal 20-[address] [facility] Comment on above: Performed By: #### C P #### [address] [address] Maintenance Mechanic Helper: Juan Perera MD Creatinine [Mass/Vol] 0.68 mg/dL Normal 0.50-0.90 [facility] Comment on above: Performed By: #### C P #### [address] [address] Maintenance Mechanic Helper: Juan Perera MD GFR, Amer >60 Normal >60 [facility] Comment on above: Performed By: #### C P #### [address] [address] Maintenance Mechanic Helper: Juan Perera MD GFR,non Amer >60 Normal >60 [facility] Comment on above: Performed By: #### C P #### [address] [address] Maintenance Mechanic Helper: Juan Perera MD Glucose [Mass/Vol] 108 mg/dL High 70-[address] [facility] Comment on above: Performed By: #### C P #### [address] [address] Maintenance Mechanic Helper: Juan Perera MD Potassium [Moles/Vol] 3.8 mmol/L Normal 3.7-5.3 [facility] Comment on above: Performed By: #### C P #### [address] [address] Maintenance Mechanic Helper: Juan Perera MD Protein [Mass/Vol] 6.4 g/dL Normal 6.4-8.[address] [facility] Comment on above: Performed By: #### C P #### [address] [address] Maintenance Mechanic Helper: Juan Perera MD Sodium [Moles/Vol] 140 mmol/L Normal 135-[address] [facility] Comment on above: Performed By: #### C P #### [address] [address] Maintenance Mechanic Helper: Juan Perera MD Urea nitrogen [Mass/Vol] 14 mg/dL Normal 8- [facility] Comment on above: Performed By: #### C P #### [address] [address] Maintenance Mechanic Helper: Juan Perera MD BUN/CRE Ratio NOT REPORTED Normal - [facility] Comment on above: Performed By: #### C P #### [address] [address] Maintenance Mechanic Helper: Juan Perera MD Staging: NOT REPORTED Normal [facility] Comment on above: Performed By: #### C P #### [address] [address] Maintenance Mechanic Helper: Juan Perera MD Comprehensive Metabolic Pane [facility] 08-02-2019 Albumin [Mass/Vol] 3.1 g/dL Low 3.5 - 5.2 g/dL [place] Albumin/Globulin [Mass ratio] 0.9 {ratio} Low [place] ALP [Catalytic activity/Vol] 68 U/L 35 - 104 U/L [place] ALT [Catalytic activity/Vol] 8 U/L 5 - 33 U/L [place] Anion gap [Moles/Vol] 9 mmol/L 9 - 17 mmol/L [place] AST [Catalytic activity/Vol] 11 U/L <32 [place] Bilirubin Ql (U) 0.39 mg/dL 0.3 - 1.2 mg/dL [place] Bun/Cre Ratio NOT REPORTED [place] Calcium [Mass/Vol] 8.6 mg/dL 8.6 - 10. 4 mg/dL [place] Chloride [Moles/Vol] 106 mmol/L 98 - 10 7 mmol/L [place] CO2 [Moles/Vol] 25 mmol/L 20 - 31 mmol/L [place] Creatinine [Mass/Vol] 0.68 mg/dL 0.5 - 0.9 mg/dL [place] GFR >60 >60 mL/min [place] GFR Non- >60 >60 mL/min [place] GFR/1.73 sq M predicted among non-blacks MDRD (S/P/Bld) [Vol rate/Area] [place] Comment on above: Average GFR for 70 o r more years old: 75 mL/min/1.73sq m Chronic Kidney Disease: <60 mL/min/1.73sq m Kidney failure: <15 mL/min/1.73sq m eGFR calculated using average adult body mass. Additional eGFR calculator available at: http://www.Ciespace.PayProp/multiple_crcl_2012.htm GFR/1.73 sq M predicted among non-blacks MDRD (S/P/Bld) [Vol rate/Area] NOT REPORTED [place] Glucose [Mass/Vol] 108 mg/dL High 70 - 99 mg/dL [place] Interpretation and review of laboratory results Abnormal [place] Potassium [Moles/Vol] 3.8 mmol/L 3.7 - 5.3 mmol/L [place] Protein [Mass/Vol] 6.4 g/dL 6.4 - 8.3 g/dL [place] Sodium [Moles/Vol] 140 mmol/L 135 - 144 mmol/L [place] Urea nitrogen [Mass/Vol] 14 mg/dL 8 - 23 mg/dL [place] LACTIC ACID, WHOLE BLOODon 1 Lactic Acid, Whole Blood 1.0 mmol/L 0.7 - 2.1 mmol/L [place] Lactic Acid,Whole Blon 08-02 Lactic Acid,Whole Bl 1.0 mmol/L Normal 0.7-2.1 [facility] Comment on above: Performed By: #### L ARAMIS HO, REJEC #### [facility] [address] [place] [phone] Maintenance Mechanic Helper: Juan Perera MD SPECIMEN REJECTIONon 019 Ordered Test CP [place], [place] Reason for Rejection Unable to perform t esting: Specimen hemolyzed. [place] Specimen source Nom (Unsp spec) [place] MACHINIST [place] - NOT REPORTED [place] Specimen Rejectionon 019 Reason for rejection Unable to perform t esting: Specimen hemolyzed. [facility] Comment on above: Performed By: #### L ARAMIS HO, REJEC #### [facility] [address] [place] [phone] Maintenance Mechanic Helper: Juan Perera MD Source of sample [place] MACHINIST [facility] Comment on above: Performed By: #### L ARAMIS HO, REJEC #### [employer] [facility] [place], [place] [phone] Maintenance Mechanic Helper: Juan Perera MD Test ordered CP [facility] Comment on above: Performed By: #### L ARAMIS HO, REJEC #### [employer] [facility] [place], [place] [phone] Maintenance Mechanic Helper: Juan Perera MD ----- NOT REPORTED [facility] Comment on above: Performed By: #### L ACWB, CDP, REJEC #### [id number] [place] [address] Maintenance Mechanic Helper: Juan Perera MD XR ABDOMEN FOR NG/OG/NE [...] Eduardo Horner MD 08/02/[address] [facility] Robert, Mhpn Incoming R adiant Results From [employer] - 08/02/2019 4:59 AM EDT EXAMINATION: ONE [...] The tube should be advanced 4 cm. [facility] [place], [place] EXAMINATION: ONE SUP INE [...] system. Very little bowel gas is seen. [facility], [place] The tip of the enter ic tube is in the stomach though the proximal side hole is in the esophagus. The tube should be advanced 4 cm. [facility], [place] Mammogram Routine Screeni ng Bilat.on 07-02-2018 [place] Mammogram Routine Screening Bilat. MAMMOGRAM ROUTINE SCREENING [...] lymph nodes are noted bilaterally.I CAD image checker cashier was utilized for this study.IMPRESSION:1. NO SPECIFIC [...] reports average 6 to 10%.LESA StoddardB #: [id number]: 07/03/2018T: 07/03/2018 Final Dictated by: Chidi Preston MD SDictated DT/TM: 07/03/18 9:47Signed (Electronic Signature): Chidi Preston MD 07/03/18 1:53 pmTechnologist: CMAAssessment: 2-Benign findingRecommendation: Normal interval follow-up Normal [facility] Provider Orderson 06-19-2018 Protein mass conc [id number] [facility] Coding Summaryon 09-03-2017 Coding Summary CODING DATE: 017 [facility] STATUS: Home PAYOR: Medicare ADMIT DX: REASON [...] Waller Revised Date Saved: 06/24/2017 10:08 am [facility] Vital Signs Date Time Vital Sign Value Performing Clinician Facility 02-19-2024 19:31-0400 SaO2% (BldA) [Mass fraction] 95 % APURVA [facility] Comment on above: Performed By: #### ELEC #### [facility] ([id number]) [address] [place] [address], [address] [place] [address] 02-17-2024 16:00-0400 Inhaled oxygen flow rate 3.5 L/min DO Gustavo Salas Work Phone: [facility] 02-17-2024 16:00-0400 SaO2% (BldA) [Mass fraction] 90 % DO Gustavo Salas Work Phone: [facility] 02-17-2024 14:02-0400 Body height 152.4 cm DO Gustavo Salas Work Phone: [facility] 02-17-2024 12:32-0400 Diastolic blood pressure 53 mm[Hg] DO Gustavovanesa Salas Work Phone: [facility] 02-17-2024 12:32-0400 Heart rate 96 /min DO Gustavovanesa Salas Work Phone: [facility] 02-17-2024 12:32-0400 Respiratory rate 18 /min DO Gustavo Salas Work Phone: [facility] 02-17-2024 12:32-0400 Systolic blood pressure 116 mm[Hg] DO Gustavo Maritza Work Phone: [facility] 02-17-2024 08:00-0400 Body temperature 97.8 [degF] DO Gustavo Salas Work Phone: [facility] 02-17-2024 05:48-0400 Body weight 86.1 kg DO Gustavo Salas Work Phone: [facility] 02-14-2024 16:43-0400 Body height 152.4 cm DO Gustavo Salas Work Phone: [facility] 02-14-2024 16:43-0400 Body temperature 98.3 [degF] DO Gustavo Salas Work Phone: [facility] 02-14-2024 16:43-0400 Body weight 84.9 kg DO Gustavo Salas Work Phone: [facility] 02-14-2024 16:43-0400 Diastolic blood pressure 69 mm[Hg] DO Gustavo Salas Work Phone: [facility] 02-14-2024 16:43-0400 Heart rate 105 /min DO Gustavo Salas Work Phone: [facility] 02-14-2024 16:43-0400 Inhaled oxygen flow rate 4 L/min DO Gustavo Salas Work Phone: [facility] 02-14-2024 16:43-0400 Respiratory rate 20 /min DO Gustavo Salas Work Phone: [facility] 02-14-2024 16:43-0400 SaO2% (BldA) [Mass fraction] 92 % DO Gustavo Salas Work Phone: [facility] [facility] 02-14-2024 16:43-0400 Systolic blood pressure 119 mm[Hg] DO Gustavo Salas Work Phone: [facility] 02-10-2024 12:36-0400 Body height 152.4 cm Jenna Engle MD Work Phone: [facility] 02-10-2024 12:36-0400 Body mass index (BMI) [Ratio] 35.15 kg/m2 Jenna Engle MD Work Phone: [facility] 02-10-2024 12:36-0400 Body weight 81.65 kg Jenna Engle MD Work Phone: [facility] 02-10-2024 12:36-0400 Diastolic blood pressure 70 mm[Hg] Jenna Engle MD Work Phone: [facility] 02-10-2024 12:36-0400 Heart rate 96 /min Jenna Engle MD Work Phone: [facility] 02-10-2024 12:36-0400 Systolic blood pressure 120 mm[Hg] Jenna Engle MD Work Phone: [facility] 01-30-2024 13:31-0400 Blood Pressure Location Renae Orzech [facility] 01-30-2024 13:31-0400 Body temperature 98.24 [degF] Renae Orzech [facility] 01-30-2024 13:31-0400 Diastolic blood pressure 82 mm[Hg] Renae Orzech [facility] 01-30-2024 13:31-0400 Heart rate 84 /min Renae Orzech [facility] 01-30-2024 13:31-0400 Systolic blood pressure 118 mm[Hg] Renae Orzech [facility] 01-27-2024 13:42-0400 Body height 162.[address] 01-27-2024 13:42-0400 Body mass index (BMI) [Ratio] 32.96 kg/m2 [address] 01-27-2024 13:42-0400 Body weight 87.[address] 01-27-2024 13:42-0400 Diastolic blood pressure 78 mm[Hg] [address] 01-27-2024 13:42-0400 Systolic blood pressure 126 mm[Hg] [address] 01-06-2024 11:39-0400 Diastolic blood pressure 72 mm[Hg] Jenna Engle MD Work Phone: [facility] 01-06-2024 11:39-0400 Systolic blood pressure 128 mm[Hg] Jenna Engle MD Work Phone: [facility] 01-06-2024 11:38-0400 Body height 162.6 cm Jenna Engle MD Work Phone: [facility] 01-06-2024 11:38-0400 Body mass index (BMI) [Ratio] 32.96 kg/m2 Jenna Engle MD Work Phone: [facility] 01-06-2024 11:38-0400 Body weight 87.09 kg Jenna Engle MD Work Phone: [facility] 01-06-2024 11:38-0400 Heart rate 62 /min Jenna Engle MD Work Phone: [facility] 12-09-2023 11:08-0500 Body mass index (BMI) [Ratio] 34.18 kg/m2 Gustavo Salas DO Work Phone: [facility] 12-09-2023 11:08-0500 Body temperature 97.5 [degF] Gustavo Salas DO Work Phone: [facility] 12-09-2023 11:08-0500 Body weight 79.38 kg Gustavo Salas DO Work Phone: [facility] 12-09-2023 11:08-0500 Diastolic blood pressure 72 mm[Hg] Gustavo Maritza DO Work Phone: [facility] 12-09-2023 11:08-0500 Heart rate 106 /min Gustavo Salas DO Work Phone: [facility] 12-09-2023 11:08-0500 SaO2% (BldA) [Mass fraction] 96 % Gustavo Salas DO Work Phone: [facility] 12-09-2023 11:08-0500 Systolic blood pressure 122 mm[Hg] Gustavo Salas DO Work Phone: [facility] 08-20-2023 16:32-0400 Heart rate 95 /min DO Gustavo Salas Work Phone: [facility] 08-20-2023 16:32-0400 Respiratory rate 20 /min DO Gustavo Salas Work Phone: [facility] 08-20-2023 12:00-0400 Body temperature 98.1 [degF] DO Gustavo Salas Work Phone: [facility] 08-20-2023 12:00-0400 Diastolic blood pressure 90 mm[Hg] DO Gustavo Salas Work Phone: [facility] 08-20-2023 12:00-0400 SaO2% (BldA) [Mass fraction] 95 % DO Gustavo Salas Work Phone: [facility] 08-20-2023 12:00-0400 Systolic blood pressure 125 mm[Hg] DO Gustavo Maritza Work Phone: [facility] 08-20-2023 04:47-0400 Body weight 82.7 kg DO Gustavo Salas Work Phone: [facility] 08-19-2023 13:57-0400 Body height 152.4 cm DO Gustavo Maritza Work Phone: [facility] 08-17-2023 20:08-0400 Diastolic blood pressure 68 mm[Hg] DO Gustavo Maritza Work Phone: [facility] 08-17-2023 20:08-0400 Heart rate 80 /min DO Gustavo Maritza Work Phone: [facility] 08-17-2023 20:08-0400 Respiratory rate 20 /min DO Gustavo Maritza Work Phone: [facility] 08-17-2023 20:08-0400 SaO2% (BldA) [Mass fraction] 95 % DO Gustavo Maritza Work Phone: [facility] 08-17-2023 20:08-0400 Systolic blood pressure 132 mm[Hg] DO Gustavo Maritza Work Phone: [facility] 08-17-2023 16:09-0400 Body temperature 97.4 [degF] DO Gustavo Maritza Work Phone: [facility] 08-17-2023 16:07-0400 Body height 152.4 cm DO Gustavo Maritza Work Phone: [facility] 08-17-2023 16:07-0400 Body weight 81 kg DO Gustavo Maritza Work Phone: [facility] 07-14-2023 13:39-0400 Body temperature 97.8 [degF] DO Gustavo Maritza Work Phone: [facility] 07-14-2023 13:39-0400 Diastolic blood pressure 79 mm[Hg] DO Gustavo Maritza Work Phone: [facility] 07-14-2023 13:39-0400 Heart rate 80 /min DO Gustavo Maritza Work Phone: [facility] 07-14-2023 13:39-0400 Respiratory rate 18 /min DO Gustavo Maritza Work Phone: [facility] 07-14-2023 13:39-0400 SaO2% (BldA) [Mass fraction] 94 % DO Gustavo Salas Work Phone: [facility] 07-14-2023 13:39-0400 Systolic blood pressure 110 mm[Hg] DO Gustavo Salas Work Phone: [facility] 07-14-2023 06:00-0400 Body weight 90.1 kg DO Gustavo Salas Work Phone: [facility] 07-11-2023 15:28-0400 Body height 152.4 cm DO Gustavo Salas Work Phone: [facility] 07-10-2023 13:00-0400 Diastolic blood pressure 59 mm[Hg] DO Gustavo Salas Work Phone: [facility] 07-10-2023 13:00-0400 Heart rate 72 /min DO Gustavo Salas Work Phone: [facility] 07-10-2023 13:00-0400 Respiratory rate 18 /min DO Gustavo Salas Work Phone: [facility] 07-10-2023 13:00-0400 SaO2% (BldA) [Mass fraction] 96 % DO Gustavo Salas Work Phone: [facility] 07-10-2023 13:00-0400 Systolic blood pressure 107 mm[Hg] DO Gusatvo Salas Work Phone: [facility] 06-17-2023 15:04-0400 Body height 152.4 cm DO Gustavo Salas Work Phone: [facility] 06-17-2023 15:04-0400 Body temperature 98.7 [degF] DO Gustavo Salas Work Phone: [facility] 06-17-2023 15:04-0400 Body weight 80.28 kg DO Gustavo Salas Work Phone: [facility] 06-17-2023 15:04-0400 Diastolic blood pressure 55 mm[Hg] DO Gustavo Salas Work Phone: [facility] 06-17-2023 15:04-0400 Heart rate 76 /min DO Gustavo Salas Work Phone: [facility] 06-17-2023 15:04-0400 Respiratory rate 19 /min DO Gustavo Salas Work Phone: [facility] 06-17-2023 15:04-0400 SaO2% (BldA) [Mass fraction] 96 % DO Gustavo Salas Work Phone: [facility] 06-17-2023 15:04-0400 Systolic blood pressure 110 mm[Hg] DO Gustavo Salas Work Phone: [facility] 12-31-2022 11:45-0500 Body temperature 97.3 [degF] DO Gustavo Salas Work Phone: [facility] 12-31-2022 11:45-0500 Diastolic blood pressure 72 mm[Hg] DO Gustavo Salas Work Phone: [facility] 12-31-2022 11:45-0500 Heart rate 78 /min DO Gustavo Salas Work Phone: [facility] 12-31-2022 11:45-0500 Inhaled oxygen flow rate 2 L/min DO Gustavo Salas Work Phone: [facility] 12-31-2022 11:45-0500 Respiratory rate 18 /min DO Gustavo Salas Work Phone: [facility] 12-31-2022 11:45-0500 SaO2% (BldA) [Mass fraction] 92 % DO Gustavo Salas Work Phone: [facility] 12-31-2022 11:45-0500 Systolic blood pressure 114 mm[Hg] DO Gustavo Salas Work Phone: [facility] 12-31-2022 06:00-0500 Body weight 83.5 kg DO Gustavo Salas Work Phone: [facility] 12-27-2022 10:00-0500 Body height 152.4 cm DO Gustavo Salas Work Phone: [facility] 12-26-2022 23:00-0500 Diastolic blood pressure 60 mm[Hg] DO Gustavo Salas Work Phone: [facility] 12-26-2022 23:00-0500 Heart rate 77 /min DO Gustavo Salas Work Phone: [facility] 12-26-2022 23:00-0500 Respiratory rate 18 /min DO Gustavo Salas Work Phone: [facility] 12-26-2022 23:00-0500 SaO2% (BldA) [Mass fraction] 94 % DO Gustavo Salas Work Phone: [facility] 12-26-2022 23:00-0500 Systolic blood pressure 130 mm[Hg] DO Gustavo Salas Work Phone: [facility] 12-26-2022 18:59-0500 Body height 152.4 cm DO Gustavo Salas Work Phone: [facility] 12-26-2022 18:59-0500 Body temperature 98.8 [degF] DO Gustavo Salas Work Phone: [facility] 12-26-2022 18:59-0500 Body weight 84.3 kg DO Gustavo Salas Work Phone: [facility] 11-22-2022 11:25-0500 Body temperature 97.5 [degF] DO Gustavo Maritza Work Phone: [facility] 11-22-2022 11:25-0500 Diastolic blood pressure 68 mm[Hg] DO Gustavo Maritza Work Phone: [facility] 11-22-2022 11:25-0500 Heart rate 72 /min DO Gustavo Maritza Work Phone: [facility] 11-22-2022 11:25-0500 Respiratory rate 22 /min DO Gustavovanesa Salas Work Phone: [facility] 11-22-2022 11:25-0500 SaO2% (BldA) [Mass fraction] 93 % DO Gustavovanesa Salas Work Phone: [facility] 11-22-2022 11:25-0500 Systolic blood pressure 146 mm[Hg] DO Gustavo Maritza Work Phone: [facility] 11-22-2022 10:26-0500 Body height 152.4 cm DO Gustavo Salas Work Phone: [facility] 11-22-2022 10:26-0500 Body weight 87.9 kg DO Gustavo Salas Work Phone: [facility] 05-31-2022 15:12-0400 Diastolic blood pressure 75 mm[Hg] DO Gustavo Maritza Work Phone: [facility] 05-31-2022 15:12-0400 Heart rate 69 /min DO Gustavo Salas Work Phone: [facility] 05-31-2022 15:12-0400 Respiratory rate 25 /min DO Gustavo Salas Work Phone: [facility] 05-31-2022 15:12-0400 SaO2% (BldA) [Mass fraction] 98 % DO Gustavo Maritza Work Phone: [facility] 05-31-2022 15:12-0400 Systolic blood pressure 156 mm[Hg] DO Gustavo Maritza Work Phone: [facility] 05-31-2022 11:02-0400 Body height 154.94 cm DO Gustavo Maritza Work Phone: [facility] 05-31-2022 11:02-0400 Body temperature 97.1 [degF] DO Gustavo Maritza Work Phone: [facility] 05-31-2022 11:02-0400 Body weight 86.18 kg DO Gustavo Salas Work Phone: [facility] 08-04-2019 08:30-0400 Body Temperature 97.81 [degF] [facility] [place] [facility] 08:30-0400 BP Diastolic 69 mm[Hg] Hayden Watters [facility] 08-04-2019 08:30-0400 BP Systolic 161 mm[Hg] Hayden Watters [facility] 08-04-2019 08:30-0400 Pulse (Heart Rate) 78 /min [facility] [place] [facility]-04-2019 08:30-0400 Pulse Oximetry 92 % Hayden Watters [facility] 08-04-2019 08:30-0400 Respiratory Rate 18 /min Hayden Watters [facility] 08-02-2019 01:00-0400 BMI (Body Mass Index) 34.44 kg/m2 [facility] [place] 08-02-2019 01:00-0400 Body weight 82.67 kg Hayden Watters [facility] 08-02-2019 01:00-0400 Height 154.9 cm Hayden Watters [facility] Encounters Encounter Date Encounter Type Care Provider [...] Not Available Start: 04-27-2024 End: 04-27-2024 ambulatory [facility] Start: 04-13-2024 End: 04-13-2024 ambulatory [facility] Start: 04-08-2024 End: 04-08-2024 ambulatory [facility] Start: 04-02-2024 End: 04-02-2024 ambulatory [facility] Start: 03-30-2024 End: 03-30-2024 ambulatory [facility] Start: 03-18-2024 End: 03-18-2024 ambulatory [facility] Start: 03-17-2024 End: 03-17-2024 ambulatory [facility] Start: 03-11-2024 End: 03-11-2024 ambulatory [facility] Start: 03-05-2024 End: 03-05-2024 ambulatory TODD POSEY [facility] Start: 03-04-2024 End: 03-04-2024 ambulatory GUSTAVO Raza MARITZA [facility] Start: 03-03-2024 End: 03-03-2024 ambulatory TODD POSEY [facility] Start: 03-02-2024 End: 03-02-2024 ambulatory TODD POSEY [facility] Start: 02-27-2024 End: 02-27-2024 ambulatory TODD Aisha POSEY [facility] Start: 02-19-2024 End: 02-26-2024 Emergency department patient visit OVIDIO JANE [facility] Start: 02-19-2024 End: 02-25-2024 Evaluation and management of inpatient GUSTAVO SALAS [facility] Start: 02-19-2024 End: 02-26-2024 Emergency department patient visit OVIDIO Durham [facility] Start: 02-14-2024 Non-patient / Non-visit DO David rama Salas Work Phone: [facility] Work Phone: Start: 02-14-2024 End: 02-17-2024 Evaluation and management of inpatient DO Gustavo Salas Work Phone: [facility] [facility] Work Phone: Start: 02-10-2024 End: 02-10-2024 ambulatory [facility] Start: 02-10-2024 End: 02-10-2024 Office outpatient visit 25 minutes Jenna Engle MD Work Phone: [facility] Comment on above: Shortness of breath; Coronary artery disease involving [place] coronary artery of [place] heart without angina pectoris; History of PTCA; Essential hypertension; Hyperlipidemia, mixed; Obstructive sleep apnea syndrome; BMI 35.0-35.9,adult; Current smoker; Chronic hypoxemic respiratory failure (Multi); Encounter to discuss test results Start: 02-05-2024 End: 02-05-2024 ambulatory GUSTAVO SALAS Not Available Start: 01-30-2024 End: 01-31-2024 ambulatory Renae X Orzech Facility[facility] Start: 01-30-2024 End: 01-31-2024 ambulatory Renae X Orzech Facility:[facility] Start: 01-30-2024 End: 01-30-2024 Lab Drop off Renae X Orzech [facility] Start: 01-30-2024 End: 01-30-2024 Patient encounter procedure Renae X Orzech [facility] Start: 01-27-2024 End: 01-28-2024 ambulatory [facility] Start: 01-27-2024 End: 01-27-2024 Subsequent hospital visit by physician Magn[facility] Echo/Vasc Room 2 [facility] Comment on above: Shortness of breath Start: 01-13-2024 ambulatory Renae Ponce Facility: [facility] Start: 01-10-2024 End: 01-10-2024 ambulatory GUSTAVO SALAS Not Available Start: 01-06-2024 End: 01-06-2024 Patient encounter procedure DO Gustavo Salas Work Phone: [facility] Work Phone: Start: 01-06-2024 End: 01-06-2024 ambulatory [facility] Start: 01-06-2024 End: 01-06-2024 Office consultation new/estab patient 80 min Jenna Engle MD Work Phone: [facility] Comment on above: Shortness of breath; Coronary artery disease involving lower [place] coronary artery of [place] heart without angina pectoris; Stage 3b chronic [...] minutes Gustavo Salas DO Work Phone: [facility] Comment on above: SOB (shortness of br eath) (Primary Dx); Wheezing; Urinary tract bacterial infections; Essential hypertension (CMS/HCC); Mixed hyperlipidemia ([facility]/HCC); Stage 3a chronic kidney disease (HCC) ([facility]/HCC); Sepsis with acute renal failure without septic shock, due to unspecified organism, unspecified acute renal failure type ([facility]/HCC); Hospital discharge follow-up; Medication management; Female bladder prolapse; Pulmonary emphysema, unspecified emphysema type ([facility]/HCC) Start: 11-12-2023 Telephone encounter Nirm[facility] Start: 10-31-2023 Chart abstracting Scanning Pro vider External [facility] Start: 10-30-2023 Telephone encounter Amrit carnes [facility] Comment on above: Neuro Appt Start: 10-21-2023 End: 10-24-2023 [facility] Start: 10-18-2023 End: 10-24-2023 [facility] Start: 10-17-2023 End: 10-24-2023 [facility] Start: 10-15-2023 End: 10-24-2023 Evaluation and management of inpatient ASHLEY [facility] Start: 10-14-2023 End: 10-24-2023 Evaluation and management of inpatient [facility] Start: 10-10-2023 End: 10-24-2023 Evaluation and management of inpatient SARATOGA E [facility] Start: 10-08-2023 End: 10-24-2023 Evaluation and management of inpatient NOE Durham SEA [facility] Start: 10-06-2023 End: 10-24-2023 Evaluation and management of inpatient CARABIENVENIDO VELAZQUEZ [facility] Start: 10-06-2023 End: 10-24-2023 Evaluation and management of inpatient FRANCINE YANG [facility] Start: 10-06-2023 End: 10-24-2023 Evaluation and management of inpatient SHEILA RODRIGUEZ ASHA [facility] Start: 10-05-2023 End: 10-24-2023 Evaluation and management of inpatient APURVA L MARIELA [facility] Start: 10-05-2023 End: 10-23-2023 Evaluation and management of inpatient ALI TRINA [facility] Start: 08-17-2023 End: 08-20-2023 Evaluation and management of inpatient DO Gustavo Salas Work Phone: [facility] Work Phone: Start: 07-10-2023 End: 07-14-2023 Evaluation and management of inpatient DO Gustavo Salas Work Phone: [facility] Work Phone: Start: 06-17-2023 End: 06-17-2023 Emergency department patient visit DO Gustavo Salas Work Phone: [facility] Work Phone: Start: 04-01-2023 End: 04-26-2023 Patient encounter procedure Gustavo Salas DO Work Phone: [facility] Start: 01-22-2023 ambulatory NARCISO TAIMIANDREW . Facility:[facility]1 Start: 12-27-[address] Charlie Gao II Facility:[id number] Start: 12-26-2022 End: 12-31-2022 Evaluation and management of inpatient DO Gustavo Salas Work Phone: [facility] Work Phone: Start: 11-22-2022 End: 11-22-2022 Emergency department patient visit DO Gustavo Salas Work Phone: [facility] Work Phone: Start: 05-31-2022 End: 05-31-2022 Emergency department patient visit DO Gustavo Salas Work Phone: [facility] Start: 05-03-2022 End: 05-03-2022 ambulatory Jorge A Renetta Other [employer] Other Start: 05-03-2022 Telephone encounter Jorge A Renetta [facility] Start: 04-24-2022 End: 04-24-2022 ambulatory Jorge A Renetta Other [employer] Other Start: 04-24-2022 Telephone encounter Jorge A Renetta [facility] Start: 03-12-[address] [facility] Start: 03-08-2022 End: 03-08-2022 ambulatory Jorge A Renetta Other [employer] Other Start: 03-08-2022 Telephone encounter Jorge A Renetta [facility] Start: 01-18-2022 End: 01-18-2022 ambulatory Tanya Cesar Other [employer] Other Start: 01-18-2022 Telephone encounter Tanya Cesar [facility] Start: 10-26-2021 End: 10-26-2021 ambulatory Jorge A Renetta Other [employer] Other Start: 10-26-2021 Telephone encounter Jorge A Renetta [facility] Start: 08-02-2019 End: 08-04-2019 Evaluation and management of inpatient CRYS BARBOZA [facility] Start: 08-01-2019 End: 08-04-2019 Evaluation and management of inpatient Hayden Bueno Work Phone: [facility] Start: 07-03-2018 End: 07-03-2018 Patient encounter Mely Camarillo Facility:[facility] Procedures Date Procedure Procedure Detail Performing Clinician Start: 09-19-2024 BLOOD CULTURE 2 Generic External Data Provider Start: 09-19-2024 BLOOD CULTURE 1 Generic External Data Provider Start: 03-17-2024 Follow-up visit Follow-up CARY BELCHER Start: 02-19-2024 Cyclic citrullinated peptide antibody APURVA SIERRA Comment on above: Result Comment: Interpretation-------- <3 Negative >=3 Positive Performed By: #### E LEC #### [facility] ([id number]) [address] [place] [address], [address] [place] [address] Start: 02-16-2024 Investigation of transfusion reaction DO [...] >=3 Positive Performed By: #### C , [facility], [address]276-6, [id number] #### [facility] ([id number]) [address] [facility], [address] [place] [address] Start: 10-06-2023 Adult depression screening assessment Tony-Ginger [...] spin e, two or three views DO Gusatvo Salas Work Phone: Start: 08-04-2019 DISCHARGE PATIENT [...] Start: 08-03-2019 INITIATE OXYGEN THER APY PROTOCOL RCYS BARBOZA Start: 08-03-2019 Radiologic exam abdo men [...] SPECIMEN CRYS BARBOZA Start: 08-02-2019 NURSING COMMUNICATION Aisha EVANS JABARI Start: 08-02-2019 INITIATE OXYGEN THER [...] screening for protein Diabetes: Urine Protein Screening [facility] Start: 01-26-2025 Echocardiography Echocardiogram [facility] Start: 10-23-2024 Adult BMI Screening Adult BMI Screening [facility] Start: 10-08-2024 End: 10-08-2024 Patient encounter procedure 10/08/2024 4:10 PM EST Procedure Visit [facility] [address] [place] [id number] Kalyan Barboza, DPViki [address] [facility] [address] [place] [address] [facility] Start: 10-07-2024 Echocardiography Echocardiogram [facility] Start: 10-06-2024 Depression Screening Depression Screening [facility] Start: 10-06-2024 Tobacco Screening Tobacco Screening [facility] Start: 09-22-2024 End: 09-22-2024 Patient encounter procedure 09/22/2024 2:00 PM EST Office Visit [facility] [address] [place] [id number] Gustavo Salas DO [address] [place] [address] [facility] Start: 06-28-2024 Influenza vaccination Influenza Vaccine (#1) [facility] Start: 04-27-2024 Screening for osteoporosis Bone Density Scan [facility] Start: 04-01-2024 Medicare Annual Wellness (AWV) Medicare Annual Wellness (AWV) [facility] Start: 02-19-2024 [facility] Start: 02-18-2024 [facility] [facility] Start: 02-17-2024 [facility] Start: 02-16-2024 Microbial culture of sputum [facility] Start: 02-14-2024 [facility] Start: 02-14-2024 Referral to Roll Tender [facility] Start: 02-14-2024 [facility] Start: 02-14-2024 Hospital admission [facility] Start: 02-14-2024 Bacteria identified in Blood by Culture [facility] Start: 02-14-2024 Bacteria identified in Urine by Culture [facility] Start: 02-14-2024 Blood culture for bacteria, including anaerobic screen Blood Culture [facility] Start: 02-14-2024 Duplex scan of lower limb veins US venous duplex LE RT [facility] Start: 02-14-2024 US Lower extremity vein - right [facility] Start: 02-10-2024 End: 02-10-2024 Patient encounter procedure 02/10/2024 12:30 PM EDT Office Visit [place] [id number] [place] [address] Jenna Engle MD [address] [place] [address] [address] [place] [address] [facility] Start: 01-27-2024 End: 01-27-2024 Patient encounter procedure 01/27/2024 1:30 PM EDT Appointment [place] [id number] Heladio [facility] [address] [place] [address] [facility] Start: 01-10-2024 End: 01-10-2024 Patient encounter procedure 01/10/2024 2:00 PM EDT Office Visit [facility] [address] [place] [phone] William Gallagher MD [address], [address] [place] [address] [facility] Start: 01-06-2024 End: 01-05-2025 CBC panel - Blood by Automated count CBC Lab Routine Shortness of breath Expected: 01/06/2024 (Approximate), Expires: 01/05/2025 [facility] Work Phone: Comment on above: Expected: 01/06/2024 (Approximate), Expi res: 01/05/2025 Start: 01-06-2024 End: 01-05-2025 Comprehensive metabolic 2000 panel - Serum or Plasma Comprehensive Metabolic Panel Lab Routine Shortness of breath Expected: 01/06/2024 (Approximate), Expires: 01/05/2025 [facility] Work Phone: Comment on above: Expected: 01/06/2024 (Approximate), Expi res: 01/05/2025 Start: 01-06-2024 End: 01-05-2025 Erythrocyte sedimentation rate Sedimentation Rate Lab Routine Shortness of breath Expected: 01/06/2024 (Approximate), Expires: 01/05/2025 [facility] Work Phone: Comment on above: Expected: 01/06/2024 (Approximate), Expi res: 01/05/2025 Start: 01-06-2024 End: 01-05-2025 Natriuretic peptide B [Mass/volume] in Blood B-Type Natriuretic Peptide Lab Routine Shortness of breath Expected: 01/06/2024 (Approximate), Expires: 01/05/2025 [facility] Work Phone: Comment on above: Expected: 01/06/2024 (Approximate), Expi res: 01/05/2025 Start: 01-06-2024 End: 01-05-2026 US Heart Transthoracic Transthoracic Echo Complete Echocardiography Routine Shortness of breath Expected: 01/06/2024 (Approximate), Expires: 01/05/2026 [facility] Service Area Work Phone: Comment on above: Expected: 01/06/2024 (Approximate), Expi res: 01/05/2026 Start: 01-06-2024 End: 01-05-2025 XR Chest 2 Views XR chest 2 views Imaging Routine Shortness of breath Expected: 01/06/2024 (Approximate), Expires: 01/05/2025 [facility] Work Phone: Comment on above: Expected: 01/06/2024 (Approximate), Expi res: 01/05/2025 Start: 12-30-2023 End: 12-30-2023 Patient encounter procedure 12/30/2023 11:15 AM EST Office Visit [facility] [address] [place] [phone] Gustavo Salas DO [address] [place] [address] [facility] Start: 12-16-2023 End: 12-16-2023 Patient encounter procedure 12/16/2023 11:30 AM EST Office Visit [facility] [address] [place] [address] Yovani Glover PA-C [address] [place] [address] [facility] Start: 12-09-2023 End: 12-09-2024 Bacteria identified in Urine by Culture Urine culture (clean catch) Microbiology Routine Urinary tract bacterial infections Expected: 12/09/2023 (Approximate), Expires: 12/09/2024 [facility] Comment on above: Expected: 12/09/2023 (Approximate), Expi res: 12/09/2024 Start: 12-09-2023 End: 12-09-2024 CBC W Auto Differential panel - Blood CBC and differential Lab Routine Essential hypertension (CMS/HCC) Expected: 12/09/2023 (Approximate), Expires: 12/09/2024 [facility] Work Phone: Comment on above: Expected: 12/09/2023 (Approximate), Expi res: 12/09/2024 Start: 12-09-2023 End: 12-09-2024 Comprehensive metabolic 2000 panel - Serum or Plasma Comprehensive metabolic panel Lab Routine Essential hypertension (CMS/HCC) Expected: 12/09/2023 (Approximate), Expires: 12/09/2024 [facility] Comment on above: Expected: 12/09/2023 (Approximate), Expi res: 12/09/2024 Start: 12-09-2023 End: 12-09-2024 Magnesium [Mass/volume] in Serum or Plasma Magnesium Lab Routine Stage 3a chronic kidney disease (HCC) (CMS/HCC) Expected: 12/09/2023 (Approximate), Expires: 12/09/2024 [facility] Comment on above: Expected: 12/09/2023 (Approximate), Expi res: 12/09/2024 Start: 11-11-2023 End: 11-11-2023 Patient encounter procedure 11/11/2023 9:15 AM EST Office Visit [facility] [address] [place] [address] [address] [place] [phone] Jose Martin Galicia MD [address] [place], [place] [phone] [facility] Start: 11-05-2023 End: 11-05-2023 Patient encounter procedure 11/05/2023 12:30 PM EST Office Visit [facility] [address] [place] [phone] Yovani Glover PA-C [address] [place] [address] [facility] Start: 08-20-2023 [facility] Start: 08-19-2023 Stool culture for bacteria Stool Culture [facility] Start: 08-18-2023 Blood chemistry [facility] Start: 08-18-2023 Duplex scan of lower limb veins US venous duplex LE BI [facility] Start: 08-18-2023 [facility] Start: 08-18-2023 Referral to Roll Tender [facility] Start: 08-17-2023 Hospital admission [facility] Start: 08-17-2023 Physical therapy procedure [facility] Start: 08-17-2023 Referral to occupational therapist [facility] Start: 08-17-2023 [facility] Start: 08-17-2023 Bacteria identified in Stool by Culture [facility] Start: 08-17-2023 [facility] Start: 08-17-2023 Bacteria identified in Blood by Culture [facility] Start: 08-17-2023 Blood culture for bacteria, including anaerobic screen Blood Culture [facility] Start: 07-14-2023 [facility] Start: 07-10-2023 Bacteria identified in Blood by Culture Blood Culture [facility] Start: 07-10-2023 Bacteria identified in Urine by Culture Urine Culture [facility] Start: 07-10-2023 Blood culture for bacteria, including anaerobic screen Blood Culture [facility] Start: 07-10-2023 Hospital admission [facility] Start: 02-26-2023 Hemoglobin A1c measurement Diabetes: Hemoglobin A1C [facility] Start: 12-31-2022 [facility] Start: 12-26-2022 Hospital admission [facility] Start: 12-26-2022 Referral to Roll Tender [facility] Start: 12-26-2022 [facility] Start: 12-26-2022 [facility] Start: 08-03-2020 Creatinine monitoring Creatinine monitoring [place], [place] Start: 08-03-2020 Potassium monitoring Potassium monitoring [place], [place] Start: 08-02-2019 Annual Wellness Visit (AWV) Annual Wellness Visit (AWV) [place] Start: 06-28-2019 Influenza vaccination Flu vaccine (#1) [place] Start: 2010 DEXA (modify frequency per FRAX score) DEXA (modify frequency per FRAX score) [place] Start: 2010 Fall Risk Screening Fall Risk Screening [facility] Start: 2010 Pneumococcal 65+ years Vaccine (1 of 2 - PCV13) Pneumococcal 65+ years Vaccine (1 of 2 - PCV13) [place] Start: 1995 Administration of varicella zoster vaccine Zoster (Shingles) Vaccine (1 of 2) [facility] Start: 1995 Breast cancer screen Breast cancer screen [place], [place] Start: 1995 Colon cancer screen colonoscopy Colon cancer screen colonoscopy [place] Start: 1995 Shingles Vaccine (1 of 2) Shingles Vaccine (1 of 2) [place] Start: 1995 Zoster Vaccines (1 of 2) Zoster Vaccines (1 of 2) [facility] Start: 1967 DTaP/Tdap/Td Vaccines (1 - Tdap) DTaP/Tdap/Td Vaccines (1 - Tdap) [facility] Start: 1964 DTaP,Tdap and Td Vaccines (1 - Tdap) DTaP,Tdap and Td Vaccines (1 - Tdap) [facility] Start: 1964 DTaP/Tdap/Td vaccine (1 - Tdap) DTaP/Tdap/Td vaccine (1 - Tdap) [place] Start: 1964 Urine screening for protein Diabetes: Urine Protein Screening [facility] Start: 1963 Adult BMI Follow Up Plan Adult BMI Follow Up Plan [facility] Start: 1963 Diabetes mellitus screening Diabetes Screening [facility] Start: 1963 Hepatitis C screening Hepatitis C Screening [facility] Start: 1955 Glaucoma screening Diabetes: Retinopathy Screening [facility] Start: 1955 Lipid screen Lipid screen [place] Start: 1945 Creatinine measurement Creatinine Level [facility] Start: 1945 Hepatitis C screen Hepatitis C screen [place] Start: 1945 Lipid panel Lipid Panel [facility] Start: 1945 Medicare Annual Wellness Visit [facility] Start: 1945 Potassium measurement Potassium Level [facility] Start: 1945 Tobacco Counseling Tobacco Counseling [facility] Anion gap measurement [facility] Basophils [#/volume] in Blood by Automated count [facility] Basophils/100 leukoc ytes in Blood by Automated count [facility] BLOOD CULTURE 1 BLOOD CULTURE 1 Lab Routine 09/19/2024 12:22 PM EST [facility] BLOOD CULTURE 2 BLOOD CULTURE 2 Lab Routine 09/19/2024 12:23 PM EST [facility] Eosinophils [#/volum e] in Blood [facility] Eosinophils/100 leukocytes in Blood by Automated count [facility] Erythrocyte distribu tion width [Ratio] by Automated count [facility] Erythrocytes [#/volu me] in Blood [facility] Hematocrit [Volume Fraction] of Blood [facility] Hemoglobin [Mass/vol ume] in Blood [facility] Initiate Oxygen Ther apy Protocol Initiate Oxygen Therapy Protocol Respiratory Care Routine Daily until discontinued starting 08/02/2019 [facility] Comment on above: Daily until discontinued starting 2018 Leukocytes [#/volume ] corrected for nucleated erythrocytes in Blood by Automated coun [facility] Leukocytes [#/volume ] in Blood [facility] Lymphocytes [#/volum e] in Blood by Automated count [facility] Lymphocytes/100 leukocytes in Blood by Automated count [facility] MCH [Entitic mass] b y Automated count [facility] MCHC [Mass/volume] b y Automated count [facility] MCV [Entitic volume] by Automated count [facility] Monocytes [#/volume] in Blood by Automated count [facility] Monocytes/100 leukoc ytes in Blood by Automated count [facility] Neutrophils [#/volum e] in Blood by Automated count [facility] Neutrophils/100 leukocytes in Blood by Automated count [facility] Nucleated erythrocyt es [Presence] in Blood by Automated count [facility] Patient Education [facility] Work Phone: Patient referral [facility] Work Phone: Platelet mean volume [Entitic volume] in Blood by Automated count [facility] Platelets [#/volume] in Blood [facility] End: 08-02-2019 PREVIOUS SPECIMEN PREVIOUS SPECIMEN Lab Routine Once for 1 Occurrences starting 08/02/2019 until 08/02/2019 [facility] Comment on above: Once for 1 Occurrences starting 08/02/20 19 until 08/02/2019 PREVIOUS SPECIMEN PREVIOUS SPECI MEN Lab Routine 08/02/2019 9:43 AM EDT [facility] Urinal[facility] complete panel - Urine Urinalysis with microscopic Lab Routine Urinary tract bacterial infections Stage 3a chronic kidney disease (HCC) (CMS/HCC) Ordered: 12/09/2023 [facility] Comment on above: Ordered: 12/09/2023 End: 01-27-2024 US Heart Transthoracic [facility] Service Area Work Phone: Comment on above: Once for 1 Occurrences starting 01/27/20 24 until 01/27/2024 Immunizations Immunization Date Immunization Notes Care Provider Napoleon garibay 09-02-2023 Influenza, High-dose , Quadrivalent [facility] 09-02-2023 influenza virus vaccine, unspecified formulation Generic Provider [facility] 01-07-2023 SARS-COV-2 (COVID-19 ) vaccine, mRNA, spike protein, LNP, bivalent, preservative free, 30 mcg/0.3 mL dose, monserrat-sucrose formulation Gustavo Salas DO Work Phone: [facility] 12-31-2022 tuberculin skin test ; purified protein derivative solution, intradermal [facility] 07-30-2022 influenza, high dose seasonal, preservative-free [facility] 07-30-2022 Influenza, High-dose Seasonal, Quadrivalent, Preservative Free Gustavo Salas DO Work Phone: [facility] 06-08-2021 pneumococcal polysaccharide vaccine, 23 valent [facility] 03-09-2021 COVID-19 Amaraa Tanya Cesar Other [facility] Other 02-10-2021 COVID-19 Moderna Tanya Cesar Other [facility] Other 11-07-2020 influenza, high dose seasonal, preservative-free [facility] 11-07-2020 influenza, seasonal, injectable Jenna Engle MD Work Phone: [facility] Work Phone: 08-04-2020 Seasonal trivalent influenza vaccine, adjuvanted, preservative free [facility] 07-14-2018 influenza, high dose seasonal, preservative-free Jorge A Jackson Other [facility] Other 07-14-2018 influenza virus vaccine, unspecified formulation DO Gustavo Salas Work Phone: [facility] 07-13-2018 Influenza, High-dose , Quadrivalent Ta-Ginger [facility] 08-02-2017 influenza, high dose seasonal, preservative-free Jorge A Renetta Other [facility] Other 08-02-2017 influenza virus vaccine, unspecified formulation DO Gustavo Salas Work Phone: [facility] 08-01-2017 Influenza, High-dose , Quadrivalent Ta-Ginger [facility] 07-26-2016 pneumococcal conjuga te vaccine, 13 valent Jorge A Renetta Other [facility] Other 07-26-2016 influenza, high dose seasonal, preservative-free Jorge A Renetta Other [facility] Other 07-26-2016 influenza virus vaccine, unspecified formulation DO Gustavo Salas Work Phone: [facility] 07-25-2016 Influenza, High-dose , Quadrivalent Ta-Ginger [facility] 08-23-2015 influenza, high dose seasonal, preservative-free Jorge A Renetta Other [facility] Other 08-23-2015 influenza virus vaccine, unspecified formulation DO Gustavo Salas Work Phone: [facility] 08-22-2015 Influenza, High-dose , Quadrivalent Ta-Ginger [facility] 10-28-2014 pneumococcal polysaccharide vaccine, 23 valent Jenna Engle MD Work Phone: [facility] Work Phone: 07-26-2014 influenza, seasonal, injectable Ta-Ginger [facility] 07-08-2014 influenza, injectabl e, quadrivalent, contains preservative Jorge A Renetta Other [facility] 09-28-2013 influenza, injectabl e, quadrivalent, contains preservative Jorge A Renetta Other [facility] 12-04-2010 pneumococcal conjuga te vaccine, 7 valent Jorge A Renetta Other [facility] Other 12-04-2010 pneumococcal Conjuga te, unspecified formulation DO Gustavo Salas Work Phone: [facility] Payers Date Payer Category Payer Medicaid [id number] 2024 Medicare (Managed Care) [facility] MEDIC[facility] [id number] 2024 Unknown [id number] 2024 Self-pay [id number] 2023 Private Health Insurance [facility] DUAL COMPLETE [facility] DUAL COMPLETE [id number] 2023-Present [address] [address] [place] [address] [id number] 2022 Medicare [id number] [id number] .[id number] 2021 Medicaid [id number] [id number] .[id number] 2018 Medicare [id number] 2017 Private Health Insurance [id number] 2014 Medicaid [id number] 2014 Medicaid MEDICAID [facility] DEPT OF JOB xxxxxxxxxxxx 2014-Present [phone] [address] [place] [address] xxxxxxxxxxxx [id number] 2014 Medicare [id number] 2014 Medicare MEDICARE MEDICAR E PART A AND B xxxxxxxxxxx 2014-Present [phone] [address] [address] [place] [address] xxxxxxxxxxx [id number] .[id number] 1945 Unknown [id number] 2.16.840.1.715603.3.579.2 .175 1945 Unknown [id number] 2.16.840.1.441994.3.579.2 .356 1945 Unknown [id number] 2.16.840.1.969769.3.579.2 .356 1945 Unknown [id number] 2.16.840.1.786041.3.579.2 .593 1945 Unknown [id number] 2.16.840.1.070752.3.579.2 .1246 1945 Unknown [id number] 2.16.840.1.674308.3.579.2 .1244 1945 Unknown [id number] 2.16.840.1.699604.3.579.2 .1244 1945 Unknown [id number] 2.16.840.1.337832.3.579.2 .727 1945 Unknown [id number] 2.16.840.1.597053.3.579.2 .727 1945 Unknown [id number] 2.16.840.1.845415.3.579.2 .1286 1945 Unknown [id number] 2.16.840.1.607795.3.579.2 .6 1945 Unknown [id number] 2.16.840.1.968249.3.579.2 .1286 1945 Unknown [id number] 2.16.840.1.038932.3.579.2 .1285 1945 Unknown [id number] 2.16.840.1.546026.3.579.2 .1285 1945 Unknown [id number] 2.16.840.1.271453.3.579.2 .1285 1945 Unknown [id number] 2.16.840.1.888608.3.579.2 .1285 1945 Unknown [id number] 2.16.840.1.385453.3.579.2 .1285 1945 Unknown [id number] 2.16.840.1.877747.3.579.2 .1285 1945 Unknown [id number] 2.16.840.1.119618.3.579.2 .6 1945 Unknown [id number] 2.16.840.1.671613.3.579.2 .1285 1945 Unknown [id number] 2.16.840.1.885719.3.579.2 .1285 1945 Unknown [id number] 2.16.840.1.268150.3.579.2 .1285 1945 Unknown [id number] 2.16.840.1.759096.3.579.2 .1285 1945 Unknown [id number] 2.16.840.1.399225.3.579.2 .1286 1945 Unknown [id number] 2.16.840.1.893377.3.579.2 .1286 1945 Unknown [id number] 2.16.840.1.318598.3.579.2 .1286 1945 Unknown [id number] 2.16.840.1.881156.3.579.2 .1286 1945 Unknown [id number] 2.16.840.1.906033.3.579.2 .128 1945 Unknown [id number] 2.16.840.1.358929.3.579.2 .1285 1945 Unknown [id number] 2.16.840.1.313880.3.579.2 .128 1945 Unknown [id number] 2.16.840.1.075111.3.579.2 .1285 1945 Unknown [id number] 2.16.840.1.491749.3.579.2 .1286 1945 Unknown [id number] 2.16.840.1.697833.3.579.2 .1285 1945 Unknown [id number] 2.16.840.1.145286.3.579.2 .128 1945 Unknown [id number] 2.16.840.1.599417.3.579.2 .1285 1945 Unknown [id number] 2.16.840.1.285541.3.579.2 .128 1945 Unknown [id number] 2.16.840.1.865101.3.579.2 .1285 1945 Unknown [id number] 2.16.840.1.307562.3.579.2 .1285 1945 Unknown [id number] 2.16.840.1.928409.3.579.2 .1285 1945 Unknown [id number] 2.16.840.1.926469.3.579.2 .1286 1945 Unknown [id number] 2.16.840.1.916605.3.579.2 .128 1945 Unknown [id number] 2.16.840.1.058043.3.579.2 .128 1945 Unknown [id number] 2.16.840.1.366144.3.579.2 .128 1945 Unknown [id number] 2.16.840.1.997895.3.579.2 .1285 1945 Unknown [id number] 2.16.840.1.196152.3.579.2 .1285 1945 Unknown [id number] 2.16.840.1.801591.3.579.2 .1285 1945 Unknown [id number] 2.16.840.1.800533.3.579.2 .128 1945 Unknown [id number] 2.16.840.1.400478.3.579.2 .1258 1945 Unknown [id number] 2.16.840.1.377750.3.579.2 .1258 1945 Unknown [id number] 2.16.840.1.416129.3.579.2 .1258 1945 Unknown [id number] 2.16.840.1.272413.3.579.2 .1258 1945 Unknown [id number] 2.16.840.1.743609.3.579.2 .1258 1945 Unknown [id number] 2.16.840.1.700511.3.579.2 .1258 1945 Unknown [id number] 2.16.840.1.562573.3.579.2 .1258 1945 Unknown [id number] 2.16.840.1.862354.3.579.2 .1258 1945 Unknown [id number] 2.16.840.1.713022.3.579.2 .1259 1945 Unknown [id number] 2.16.840.1.174454.3.579.2 .1259 1945 Unknown [id number] 2.16.840.1.391664.3.579.2 .1259 Medicare [id number] 2.16.840.1.634007.19 Unknown [facility] 2 [id number] Unknown [id number] 2.16.840.1.379705.3.579.2 .531 Unknown [id number] 2.16.840.1.923943.3.579.2 .531 Social History Date Type Detail Facility Start: 06-23-2012 End: 05-06-2024 Tobacco smoking status NHIS Former smoker [facility] Start: 12-26-2022 End: 12-08-2011 History of tobacco use Current smoker [place] End: 12-08-2011 History of tobacco use Cigarette Sm[place] Start: 06-23-2012 End: 04-26-2023 Alcohol intake No [place] Start: 06-23-2012 Alcohol Comment stopped 20 years [place], [place] Start: 1945 Sex Assigned At Not on file M [place], [place] Start: 1945 Sex Assigned At Female F [facility] Start: 10-06-2023 End: 12-04-2023 Tobacco smoking status [facility] Smokes tobacco daily [facility] Start: 04-26-2023 End: 10-06-2023 Cigarettes smoked current (pack per day) - Reported 0.5 [facility] Start: 10-06-2023 End: 05-06-2024 Tobacco use and exposure Smokeless tobacco non-user [facility] Start: 10-18-2023 End: 07-23-2024 Alcohol [...] : Former smoker ; quit date 01/26/2022 [facility] Start: 03-23-2023 Alcohol Comment caffeine 2-3 c ups/day; pepsi 2 cans/day [facility] Start: 12-27-2023 End: 02-10-2024 Exposure to SARS-CoV-2 (event) Not sure [facility] Start: 01-30-2024 Tobacco smoking status Light t obacco smoker (finding) [facility] Start: 02-10-2024 Tobacco smoking stat NHIS Occasional tobacco smoker [facility] Work Phone: Medical Equipment Procedure Code Equipment Code Equipment Origin al Text Equipment Identifier Dates CL CLOSURE DEVIC E EXOSEAL [id number] FDA Start: 04-29-2019 CL STENT KELLY 2.75 X 23 FDA Start: 04-29-2019 Orthopaedic bone screw, non-bioabsorbable, non-sterile [id number] FDA Start: 09-02-2020 Femur nail, sterile ([id number] FDA Start: 09-02-2020 Spiral blade ()[id number] FDA Start: 09-02-2020 CL CLOSURE DEVIC E [...] status 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 Baseline [facility] Work Phone: 02-14-2024 Functional status Patient Not at [facility] Work Phone: 01-30-2024 Functional Status N/A [facility] 08-20-2023 Functional status Patient at Baseline [facility] Work Phone: 07-14-2023 Functional status Patient at Baseline [facility] Work Phone: 12-31-2022 Functional status Patient Not at Baseline [facility] Work Phone: Mental Status Date Assessment Result Facility 02-17-2024 Cognitive function Cognitive Sta tus Patient at Baseline [facility] Work Phone: 02-14-2024 Cognitive function Cognitive Sta tus Patient at Baseline [facility] Work Phone: 08-20-2023 Cognitive function Cognitive Sta tus Patient at Baseline [facility] Work Phone: 07-14-2023 Cognitive function Cognitive Sta tus Patient at Baseline [facility] Work Phone: 12-31-2022 Cognitive function Cognitive Sta s Patient at Baseline [facility] Work Phone: Clinical Notes 01-18-2022 to [...] Dima Colón MD on 02/19/2024 4:[address] [facility] 02-16-2024 Progress note Note Date/Time February 16, 2024 12:07pm [facility] [address] [place] [address] Hospitalist Progress Note Signed Patient: Gera Perdue MR#: [id number] : 1945 Acct:[id number] Age/Sex: 78 / F Adm Date: 4 Loc: 3T Room: [address] [place] [address] Type: ADM IN Attending Dr: Lucho Grullon [...] <Electronically signed by Lucho Grullon MD> 02/16/241911 [facility] Work Phone: 1(884) 398-535104-21-2024 Progress note Author Lucho Grullon [facility] February 16, 2024 12:09am Note Date/Time February 15, 2024 3:0 4pm [facility] [address] [place] [address] Hospitalist Progress Note Signed Patient: Gera Perdue MR#: [id number] : 1945 Acct:[id number] Age/Sex: 78 / F Adm Date: 4 Loc: 3T Room: [address] [place] [address] Type: ADM IN Attending Dr: Lucho Grullon [...] Tab.Er.12h PO 02/13/25 20:59 600 mg BID JERLIYN Administration Heparin Sodium (Porcine) 5,000 unit 02/14/24 [...] Plan Documented By: Lucho Grullon MD 02/15/24 1454 Signed By: <Electronically signed by Lucho Grullon MD> 02/16/24 0009 [facility] Work Phone: 1(551) 676-680804-20-2024 History and physical note Author Lucho Grullon [facility] February 15, 2024 12:58am Note Date/Time February 14, 2024 5:5 9pm [facility] [address] [place] [address] Hospitalist H&P Signed Patient: Gera Perdue MR#: [id number] : 1945 Acct:[id number] Age/Sex: 78 / F Adm Date: 4 Loc: Room: [address] [place] [address] Type: ADM IN Attending Dr: Lucho Grullon [...] care Discussed with:?the medical team, the patient [facility] Medical History Intertrochanteric fracture of left [...] % (Auto) 23.7 % (.) 02/14/24 11:39 [place] % (Auto) 12.3 % (.) 02/14/24 11:39 Eos % (Auto) 0.4 % (.) 02/14/24 11:39 Baso % (Auto) 0.9 % (.) 02/14/24 11:39 Nucleat RBC Rel Count 0.1 /100 WBC (0-0.5) 02/14/24 11:39 Neut # (Auto) 8.5 x10E3/uL (1.8-7.7) H 02/14/24 11:39 Lymph # (Auto) 3.2 x10E3/uL (1.00-4.8) 02/14/24 11:39 [place] # (Auto) 1.7 x10E3/uL (0.0-0.8) H 02/14/24 [...] pH 5.5 (5.0-9.0) 02/14/24 11:50 Ur Specific [place] 1.024 (1.001-1.030) 02/14/24 11:50 Urine Protein 30 [...] signed by Lucho Grullon MD> 02/15/24 0058 [facility] Work Phone: 1(492) 108-680604-15-2024 History of Present illness Narrative* Jenna Engle [...] stage IIIb 5. Patient was transferred to [facility] from [facility] for nephrology consultation for ARTURO on CKD along with hyperkalemia. This occurred in September 2023. Prior to that she had been living [facility], and has been in and out of [facility] on multiple occasions, being treated for [...] redirect to the Timeline version of the Doodle Mobile SmartLink. Wt Readings from Last 3 Encounters: [...] smoker 01/06/2024 Frequent UTI 01/06/2024 Angina pectoris ([facility]) 12/04/2023 Coronary artery disease 12/04/2023 Dyspnea 12/04/2023 Essential hypertension 12/04/2023 Hyperlipidemia, mixed 12/04/2023 Assessment: 1. Shortness of breath Follow Up In Cardiology 2. Coronary artery disease involving [place] coronary artery of [place] heart without angina pectoris 3. History of [...] further questions arise, Sincerely, Jenna Engle MD [facility] Follow up : prn Scribe Attestation By [...] exam, discussion and plan. [facility] Phone: 1([phone]) 426-438404-15-2024 Instructions* Patient Instructions* Hoa Buck LPN - [...] ordered as needed only documented in this [facility] Work Phone: 1([phone]) 390-671104-04-2024 Hospital Discharge instructions Patient Education 01/30/2024 14:50:25 [...] Treatment for this condition includes: Antibiotic medicine. Vupp-bxw-aahbhxk medicines to treat discomfort. Drinking enough water [...] Follow these instructions at home: Medicines Take crix-ylv-szbhtqs and prescription medicines only as told by [...] provider. Document Revised: 05/26/2021 Document Reviewed: 05/26/2021 Dress Code Patient Education 2022 [employer]. 01/30/2024 14:50:24 Urinary Incontinence Urinary Incontinence Urinary [...] (electrical nerve stimulation). ?For women, using a clinical specialist medical device to prevent urine leaks. This is a [...] right after experiencing incontinence. General instructions Take hhjn-nhc-gyykhtl and prescription medicines only as told by [...] important. Where to find more information National [place] of Diabetes and Digestive and Kidney Diseases: www.niddk.nih.gov [place] [employer]: www.urologyhealth.org Contact a health care [...] provider. Document Revised: 05/19/2021 Document Reviewed: 05/19/2021 Dress Code Patient Education 2022 [employer]. 01/30/2024 14:50:21 Overactive Bladder, Adult Overactive Bladder, [...] your health care provider. General instructions Take sqjp-tvz-dqqaflk and prescription medicines only as told by [...] provider. Document Revised: 07/03/2021 Document Reviewed: 07/03/2021 Dress Code Patient Education 2022 [employer]. Follow Up Care 01/13/2024 09:25:34 With:CHIP Ponce APRN, Renae Delaney, JYOTI, URL Address: When: Unknown Comments:pending cysto/UD [facility] Ryann 04-04-2024 Evaluation + Plan note Diagnostic Tests Pending * Urine Culture 01/30/24 [facility]03-11-2024 History of Present illness Narrative* Jenna Engle [...] have been reviewed. Reviewed extensive records from [facility].. Past Medical History: 1. Longstanding nicotine dependence with COPD, currently hypoxemic respiratory failure on oxygen. 2. Primary hypertension 3. Obstructive sleep apnea 4. Chronic kidney disease stage IIIb 5. Patient was transferred to [facility] from [facility] for nephrology consultation for ARTURO on CKD along with hyperkalemia. This occurred in September 2023. Prior to that she had been living [facility], and has been in and out of [facility] on multiple occasions, being treated for [...] 2 views; Future Coronary artery disease involving [place] coronary artery of [place] heart without angina pectoris Stage 3b chronic kidney disease (CMS/HCC) Microcytic anemia History of PTCA Essential hypertension Hyperlipidemia, mixed Obstructive sleep apnea syndrome Chronic respiratory failure with hypoxia (CMS/HCC) Frequent UTI BMI 32.0-32.9,adult Cough with expectoration Current smoker 1. Shortness of breath 2. Coronary artery disease involving [place] coronary artery of [place] heart without angina pectoris 3. Stage 3b chronic kidney disease (CMS/HCC) 4. Microcytic anemia 5. History of PTCA 6. Essential hypertension 7. Hyperlipidemia, mixed 8. Obstructive sleep apnea syndrome 9. Chronic respiratory failure with hypoxia (CMS/HCC) 10. Frequent UTI 11. BMI 32.0-32.9,adult 12. Cough with expectoration 13. Current smoker Patient with multiple comorbidities, atherosclerotic [place] vessel coronary artery disease and riskfactors, recent [...] to smoke. She has history of atherosclerotic [place] vessel coronary artery disease with intolerance to [...] further questions arise, Sincerely, Jenna Engle MD [facility] Scribe Attestation By signing my name below, [...] exam, discussion and plan. [facility] Work Phone: 1(279) 644-918103-11-2024 Instructions* Patient Instructions* Yaquelin Garcia LPN - [...] two weeks then stop [facility] Work Phone: 1([phone]) 709-325102-12-2024 History of Present illness Narrative* Lilliam Cheek, GUEST SERVICE REPRESENTATIVE - 12/09/2023 11:00 AM EST Subjective Patient ID: Gera Perdue (: 1945) is a 78 y.o. female who presents for Hospital Follow-up. HPI Pt presents and daughter present for hospital follow up. Pt was admitted to [facility] in early September for ARTURO, UTI, and sepsis. Patient was then discharged to the [facility] in [place]. Pt was released from the [facility] on 11/28/2023. She is supposed to be getting HH however the company they were r eferred to is short staffed so her family has been caring for her. Today patient has complaints of shortness of breath and bilateral leg swelling. Pt denies urinary symptoms. She is currently finishing her Levaquin as she was started on at the [facility]. Pt did also receive weeks of Daptomycin [...] TABLET BY MOUTH EVERY DAY nystatin (Mycostatin) 789361 UNIT/GM powder APPLY TOPICALLY TO THE AFFECTED [...] related osteoporosis (CMS/HCC) Atherosclerotic heart disease of [place] coronary artery without angina pectoris (CMS/HCC) Carotid [...] Recent Results (from the past 2016 hour(s)) [facility] CULTURE URINE Collection Time: 09/22/23 12:00 PM Result Value Ref Range [facility] CULTURE URINE O:KLEPNE Isolated [facility] CULTURE URINE Urine Culture [place] Count TBH CULTURE URINE >100,000 CFU/ml TBH [...] CBC and differential Comprehensive metabolic panel Hyperlipidemia ([facility]) Stage 3a chronic kidney disease (HCC) ([facility]) Relevant Orders Urinalysis with microscopic Magnesium SOB (shortness of breath) - Primary Hospital discharge follow-up Other Visit Diagnoses Wheezing Urinary tract bacterial infections Relevant Orders Urinalysis with microscopic Urine culture (clean catch) Sepsis with acute renal failure without septic shock, due to unspecified organism, unspecified acute renal failure type ([facility]) Medication management Patient presents today with daughter for hospital/retirement follow up. Patient was admitted to [facility] (all hospital records are in Care Everywhere and were reviewed prior to and during appt). With UTI, ARTURO and sepsis. She did receive IV antibiotics through a PICC line which has since been removed. She was discharged to the [facility] for retirement for three weeks and was discharged on11/28/2023. Patient is currently finishing oral Levaquin. Patient denies urnary symptoms or fevers today. Patient does have complaints of leg swelling and shortness of breath. Assessment does consist of wheezing and rhonchi. Daughter did bring a large bag with multiple medications that needed reviewed and sorted out. This GUEST SERVICE REPRESENTATIVE did review each medication and compared it to the discharge summary from the [facility]. Each medication was discussed and placed in proper labeled bags to assist in the proper set up at home. Patient does have an order for HH however the company does not have enough staff. I am going to send an order to [facility] as this patient needs and requires a HH nurse, aide, social science manager and PT. CCM will also be consulted. Patient does discuss concerns of a prolapsed bladder being apossible cause of the UTI's which this does need assessed in a timely manner. Referral sent to [facility]OR[facility] TECHNICIAN.Advised daughter to call office within 5-7 days if she has not heard anything to address the above r eferrals. Patient is currently supposed to be taking Prednisone 20 mg a day which she has not been doing. This was given at the [facility]. Due to the wheezing and shortness of breath I advised they to 40 mg a day for 3 days and finish the rest of the 20 mg a day until finished. Patient and daughter instructed to call office with any questions or to seek ER if symptoms worsen. 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 Patient will return to the [...] breathing machine I will address this with [facility]. Health Maintenance Topic Date Due Diabetes: [...] follow up with labs. documented in this encounterOzarks Community [id number] Miscellaneous Notes* Telephone Encounter - Yvonne Kelly RN - 11/12/2023 2:42 PM EST Called Alethea-Patient's daughter back after r/s hospital followup with Dr Galicia for 11-22-2023. Our office does not participate with her Mom's insurance-[facility] [employer]. Appt cancelled. Alethea to call her Mom's [facility] [employer] Customer Service to see what Ellen GUZMAN is on her plan. Alethea to call office back so we can send a referral. [facility] Telephone encounter Note* Telephone Encounter - Yvonne Kelly RN - 11/12/2023 2:42 PM EST Called Alethea-Patient's daughter back after r/s hospital followup with Dr Galicia for 11-22-2023. Our office does not participate with her Mom's insurance-[facility] [employer]. Appt cancelled. Alethea to call her Mom's [facility] [employer] Customer Service to see what Ellen GUZMAN is on her plan. Alethea to call office back so we can send a referral. [facility]01-16-2024 Miscellaneous Notes* Telephone Encounter - Nirmala Shirley - 11/12/2023 10:18 AM EST ALETHEA IS CALLING SINCE PT TESTED POSITIVE FOR COVID. PLEASE CALL AND ADVISE ABOUT THE HOSPITAL DISCHARGE FOLLOW UP SHE CAN BE REACHED AT [phone] * Telephone Encounter - Yvonne Kelly RN - 11/12/2023 10:18 AM EST Patient is in isolation until 11-17-2023. Appt r/s with Dr Galicia for 10:30a documented in this encounterK[facility]01-16-2024 Telephone encounter Note* Telephone Encounter - Nirmala Shirley - 11/12/2023 10:18 AM EST ALETHEA IS CALLING SINCE PT TESTED POSITIVE FOR COVID. PLEASE CALL AND ADVISE ABOUT THE HOSPITAL DISCHARGE FOLLOW UP SHE CAN BE REACHED AT [phone] [facility]01-16-2024 Telephone encounter Note* Telephone Encounter - Yvonne Kelly RN - 11/12/2023 10:18 AM EST Patient is in isolation until 11-17-2023. Appt r/s with Dr Galicia for 10:30a [facility]01-03-2024 Miscellaneous Notes* Telephone Encounter - Avtar Ortega - 10/30/2023 12:37 PM EST New patient/Hospital Follow Up DX: Sleep Apnea Scheduled 01/10/24 w/ Dr. Gallagher [facility] Paperwork sent: 10/30/23. Please send paperwork to: [employer] @ [address] [address] Ins verified (OON notification); NO WORKMAN'S COMP; NO ACCIDENT documented in this encounterK[facility]01-03-2024 Telephone encounter Note* Telephone Encounter - Amrit Ortega - 10/30/2023 12:37 PM EST New patient/Hospital Follow Up DX: Sleep Apnea Scheduled 01/10/24 w/ Dr. Gallagher [facility] Paperwork sent: 10/30/23. Please send paperwork to: [employer] @ [employer] [address] [place] [address] Ins verified (OON notification); NO WORKMAN'S COMP; NO ACCIDENT [facility] [employer]10-24-2023 Discharge summary Author Jesus Alberto Aquino [facility] August 20, 2023 1:32pm Note Date/Time August 20, 2023 1 :32pm [facility] [address] [place] [address] Discharge Summary Signed Patient: Gera Perdue MR#: [id number] : 1945 Acct:[id number] Age/Sex: 77 / F Adm Date: 3 Loc: Room: [address] [place] [address]: Jesus Alberto Aquino MD Copies [...] 08:00 Discharge Plan Discharge Plan Patient Disposition: [facility] Facility Activity: No Activity Restriction Diet: Regular [...] by Jesus Alberto Aquino MD> 08/20/23 1332 [facility] Work Phone: 1([phone]) 993-597910-23-2023 Progress note Author Jesus Alberto Aquino [facility] August 19, 2023 2:43pm Note Date/Time August 19, 2023 2 :43pm [facility] [address] [place] [address] Hospitalist Progress Note Signed Patient: Gera Perdue MR#: [id number] : 1945 Acct:[id number] Age/Sex: 77 / F Adm Date: 3 Loc: 3T Room: [address] [place] [address] Type: ADM IN Attending Dr: Jesus Alberto [...] 7.4 IV 08/16/24 20:59 100 mls/hr .Q10H JEIRLYN Administration Metoprolol Succinate 50 mg 08/18/23 09:00 [...] signed by Jesus Alberto Aquino MD> 08/19/231442 [facility] Work Phone: 1([phone]) 538-619010-22-2023 Progress note Author Jesus Alberto Aquino [facility] August 18, 2023 1:49pm Note Date/Time August 18, 2023 1 :49pm [facility] [address] [place] [address] Hospitalist Progress Note Signed Patient: Gera Perdue MR#: [id number] : 1945 Acct:[id number] Age/Sex: 77 / F Adm Date: 3 Loc: Room: [address] [place] [address] Type: ADM IN Attending Dr: Jesus Alberto [...] Tab.Er.24h PO 08/17/24 08:59 50 mg DAILY JERIYLN Administration Nystatin 1 applic 08/17/23 22:00 08/18/23 [...] signed by Jesus Alberto Aquino MD> 08/18/231348 [facility] Work Phone: [phone] 720-443610-21-2023 History and physical note Author Jesus Alberto Aquino [facility] August 17, 2023 7:50pm Note Date/Time August 17, 2023 7 :50pm [facility] [address] [place] [address] Hospitalist H&P Signed Patient: Gera Perdue MR#: [id number] : 1945 Acct:[id number] Age/Sex: 77 / F Adm Date: 3 Loc: Room: [address] [place] [address] Type: ADM IN Attending Dr: Jesus Alberto [...] apnea Nephrolithiasis Pulm hypertension GERD Hypertension Dyslipidemia [facility] Medical History (Updated 08/17/23 @ 19:01 [...] % (Auto) 7.8 % (.) 08/17/23 16:05 [place] % (Auto) 5.5 % (.) 08/17/23 16:05 Eos % (Auto) 0.0 % (.) 08/17/23 16:05 Baso % (Auto) 0.2 % (.) 08/17/23 16:05 Nucleat RBC Rel Count 0.1 /100 WBC (0-0.5) 08/17/23 16:05 Neut # (Auto) 25.4 x10E3/uL (1.8-7.7) H 08/17/23 16:05 Lymph # (Auto) 2.3 x10E3/uL (1.00-4.8) 08/17/23 16:05 [place] # (Auto) 1.6 x10E3/uL (0.0-0.8) H 08/17/23 [...] by Jesus Alberto Aquino MD> 08/17/23 1950 [facility] Work Phone: [phone]) 870-630410-21-2023 History and physical note Author Jesus Alberto Aquino [facility] August 17, 2023 7:50pm Note Date/Time August 17, 2023 7 :50pm [facility] [address] [place] [address] Hospitalist H&P Signed Patient: Gera Perdue MR#: [id number] : 1945 Acct:[id number] Age/Sex: 77 / F Adm Date: 3 Loc: Room: [address] [place] [address] Type: ADM IN Attending Dr: Jesus Alberto [...] apnea Nephrolithiasis Pulm hypertension GERD Hypertension Dyslipidemia [facility] Medical History (Updated 08/17/23 @ 19:01 [...] % (Auto) 7.8 % (.) 08/17/23 16:05 [place] % (Auto) 5.5 % (.) 08/17/23 16:05 Eos % (Auto) 0.0 % (.) 08/17/23 16:05 Baso % (Auto) 0.2 % (.) 08/17/23 16:05 Nucleat RBC Rel Count 0.1 /100 WBC (0-0.5) 08/17/23 16:05 Neut # (Auto) 25.4 x10E3/uL (1.8-7.7) H 08/17/23 16:05 Lymph # (Auto) 2.3 x10E3/uL (1.00-4.8) 08/17/23 16:05 [place] # (Auto) 1.6 x10E3/uL (0.0-0.8) H 08/17/23 [...] by Jesus Alberto Aquino MD> 08/17/23 1950 [facility] Work Phone: [phone] 315-681209-17-2023 Discharge summary Author Jolanta Mckenzie [facility] July 14, 2023 11:16am Note Date/Time July 14, 2023 11:16am [facility] [address] [place] [address] Discharge Summary Signed Patient: Gera Perdue MR#: [id number] : 1945 Acct:[id number] Age/Sex: 77 / F Adm Date: 3 Loc: Room: [address] [place] [address]: Jolanta Mckenzie MD Copies to: [...] % (Auto) 69.9, Lymph % (Auto) 22.1, [place] % (Auto) 7.3, Eos % (Auto) 0.4, Baso % (Auto) 0.3, Nucleat RBC Rel Count 0.1, Neut # (Auto) 13.5 H, Lymph # (Auto) 4.3, [place] # (Auto) 1.4 H, Eos # (Auto) [...] signed by Jolanta Mckenzie MD> 07/14/23 1116 [facility] Work Phone: 1(879) 878-235509-16-2023 Progress note Author Jolanta Mckenzie [facility] July 13, 2023 1:59pm Note Date/Time July 13, 2023 10:40am [facility] [address] [place] [address] Hospitalist Progress Note Signed with Addenda Patient: Gera Perdue MR#: [id number] : 1945 Acct:[id number] Age/Sex: 77 / F Adm Date: 3 Loc: Room: [address] [place] [address] Type: ADM IN Attending Dr: Jolanta Mckenzie [...] Tab.Er.24h PO 07/12/24 08:59 50 mg DAILY JEIRLYN Administration Pantoprazole Sodium 40 mg 07/11/23 09:00 [...] <Electronically signed by Jolanta Mckenzie MD> 07/13/23 5281 [facility] Work Phone: 1(295) 743-282909-15-2023 Progress note Author Jolanta Mckenzie [facility] July 12, 2023 3:00pm Note Date/Time July 12, 2023 2:16pm [facility] [address] [place] [address] Hospitalist Progress Note Signed with Ling Patient: Gera Perdue MR#: [id number] : 1945 Acct:[id number] Age/Sex: 77 / F Adm Date: 3 Loc: Room: [address] [place] [address] Type: ADM IN Attending Dr: Jolanta Mckenzie [...] 1,000 Ml IV 07/09/24 13:59 75 mls/hr .[id number] JERILYN Administration Ceftriaxone Sodium 1 gm in [...] all. Sputum culture growing moderate normal respiratory ikmberly. No growth on bloodcultures so far Consult [...] signed by Jolanta Mckenzie MD> 07/12/23 1457 [facility] Work Phone: 1(686) 732-733009-14-2023 Progress note Author Jolanta Mckenzie [facility] July 11, 2023 12:47pm Note Date/Time July 11, 2023 10:10am [facility] [address] [place] [address] Hospitalist Progress Note Signed with Ling Patient: Gera Perdue MR#: [id number] : 1945 Acct:[id number] Age/Sex: 77 / F Adm Date: 3 Loc: Room: [address] [place] [address] Type: ADM IN Attending Dr: Jolanta Mckenzie [...] 1,000 Ml IV 07/09/24 13:59 75 mls/hr .[id number] JERILYN Administration Ceftriaxone Sodium 1 gm in [...] Capsule PO 01/06/24 20:59 75 mg BID JERLIYN Administration Sodium Chloride 0 ml 07/10/23 09:28 [...] signed by Jolanta Mckenzie MD> 07/11/23 1246 [facility] Work Phone: 1(181) 888-729809-13-2023 History and physical note Author Jolanta Mckenzie [facility] July 10, 2023 1:50pm Note Date/Time July 10, 2023 1:44pm [facility] [address] [place] [address] Hospitalist H&P Signed Patient: Gera Perdue MR#: [id number] : 1945 Acct:[id number] Age/Sex: 77 / F Adm Date: 3 Loc: Room: [address] [place] [address] Type: ADM IN Attending Dr: Jolanta Mckenzie [...] negative unless noted below or in HPI [facility] Medical History Arthritis COPD (chronic obstructive [...] % (Auto) 31.5 % (.) 07/10/23 08:44 [place] % (Auto) 6.5 % (.) 07/10/23 08:44 Eos % (Auto) 0.4 % (.) 07/10/23 08:44 Baso % (Auto) 0.2 % (.) 07/10/23 08:44 Nucleat RBC Rel Count 0.1 /100 WBC (0-0.5) 07/10/23 08:44 Neut # (Auto) 13.1 x10E3/uL (1.8-7.7) H 07/10/23 08:44 Lymph # (Auto) 6.7 x10E3/uL (1.00-4.8) H 07/10/23 08:44 [place] # (Auto) 1.4 x10E3/uL (0.0-0.8) H 07/10/23 [...] pH 8.5 (5.0-9.0) 07/10/23 08:44 Ur Specific [place] 1.022 (1.001-1.030) 07/10/23 08:44 Urine Protein 30 [...] signed by Jolanta Mckenzie MD> 07/10/23 1350 [facility] Work Phone: [phone] 256-408903-06-2023 Discharge summary Author Jesus Alberto Aquino [facility] December 31, 2022 3:43pm Note Date/Time December 31, 2022 11:5 7am [facility] [address] [place], [place] [id number] Discharge Summary Signed Patient: Gera Perdue MR#: [id number] : 1945 Acct:[id number] Age/Sex: 77 / F Adm Date: 3 Loc: 4N Room: 7F6757-[address]: Jesus Alberto Aquino MD Copies [...] % (Auto) N/A, Lymph % (Auto) N/A, [place] % (Auto) N/A, Eos % (Auto) N/A, Baso % (Auto) N/A, Nucleat RBC Rel Count N/A, Neut # (Auto) N/A, Lymph # (Auto) N/A, [place] # (Auto) N/A, Eos # (Auto) N/A, [...] 09:23 Discharge Plan Discharge Plan Patient Disposition: [facility] Facility Activity: No Activity Restriction Diet: Regular [...] signed by Jesus Alberto Aquino MD> 12/31/22 1547 [facility] Work Phone: 1(154) 534-556403-05-2023 Progress note Author Carla Hagan [facility] December 30, 2022 9:53am Note Date/Time December 30, 2022 9:53 am [facility] [address] [place] [address] Hospitalist Progress Note Signed Patient: Gera Perdue MR#: [id number] : 1945 Acct:[id number] Age/Sex: 77 / F Adm Date: 3 Loc: 4N Room: [id number] Type: ADM IN Attending Dr: Carla Hagan [...] place, time and person. Morbidly obese HEENT: [place] conjunctiva and NL buccal mucosa Neck: Supple, [...] signed by Carla Hagan MD> 12/30/22 0953 [facility] Work Phone: [phone]) 129-205103-04-2023 Progress note Author Carla Hagan [facility] December 29, 2022 10:00am Note Date/Time December 29, 2022 10:0 0am [facility] [address] [place] [address] Hospitalist Progress Note Signed Patient: Gera Perdue MR#: [id number] : 1945 Acct:[id number] Age/Sex: 77 / F Adm Date: 3 Loc: 4N Room: 4S1375-9 Type: ADM IN Attending Dr: Carla Hagan [...] place, time and person. Morbidly obese HEENT: [place] conjunctiva and NL buccal mucosa Neck: Supple, [...] signed by Carla Hagan MD> 12/29/22 1000 [facility] Work Phone: [phone]) 230-342303-03-2023 Progress note Author Carla Hagan [facility] December 28, 2022 11:14am Note Date/Time December 28, 2022 9:27 am [facility] [address] [place] [address] Hospitalist Progress Note Signed Patient: Gera Perdue MR#: [id number] : 1945 Acct:[id number] Age/Sex: 77 / F Adm Date: 3 Loc: Room: 5A2576-9 Type: ADM IN Attending Dr: Carla Hagan [...] <Electronically signed by DO SEAN Armas> 12/28/22 1043 [facility] Work Phone: 1([phone] 103-404103-02-2023 Progress note Author Carla Hagan [facility] December 27, 2022 12:40pm Note Date/Time December 27, 2022 9:25 am [facility] [address] [place], [place] [id number] Hospitalist Progress Note Signed Patient: Gera Perdue MR#: [id number] : 1945 Acct:[id number] Age/Sex: 77 / F Adm Date: 3 Loc: 4N Room: 5G6284-3 Type: ADM IN Attending Dr: Carla Hagan [...] 3 Ml Ampul.Neb INHALATION 12/27/23 08:59 BID [facility] Atorvastatin Calcium 40 mg 12/27/22 21:00 Atorvastatin 40 Mg Tablet PO 12/27/23 20:59 QPM JERILYN Budesonide 0.5 mg 12/27/22 06:00 Budesonide 0.5 Mg/2 Ml Ampul.Neb INHALATION 12/27/23 05:59 BID@0600,1800 [facility] Bupropion HCl 300 mg 12/27/22 09:00 Bupropion 300 Mg Tab.Er.24h PO 12/27/23 08:59 QAM [facility] Calcium Carbonate 600 mg 12/27/22 09:00 Calcium Carbonate 500 Mg Tablet PO 12/27/23 08:59 DAILY [facility] Clopidogrel Bisulfate 75 mg 12/27/22 09:00 Clopidogrel Bisulfate 75 Mg Tablet PO 12/27/23 08:59 DAILY [facility] Heparin Sodium (Porcine) 5,000 unit 12/27/22 06:00 12/27/22 06:14 Heparin 5,000 Unit/Ml Vial SUBCUT 12/27/23 05:59 5,000 unit Q8HR [facility] Administration Hydromorphone HCl 0.5 mg 12/27/22 03:58 Hydromorphone 0.5 Mg/0.5 Ml Syringe IV-PUSH Q4H PRN Pain Scale 8 - 10 Lisinopril 5 mg 12/27/22 09:00 Lisinopril 5 Mg Tablet PO 12/27/23 08:59 DAILY [facility] Metoprolol Succinate 50 mg 12/27/22 09:00 Metoprolol Succinate 50 Mg Tab.Er.24h PO 12/27/23 08:59 DAILY [facility] Nicotine 1 each 12/27/22 00:30 12/27/22 00:48 Nicotine Patch 14 Mg/24hr 1 Each Patch.Td24 TRANSDERML 01/08/23 09:01 1 each DAILY [facility] Administration Nystatin 1 applic 12/27/22 00:30 12/27/22 00:48 Nystatin 100,000 Unit/Gram Powder 15 Gm Bottle TOPICAL 12/27/23 00:29 1 applic BID [facility] Administration Ondansetron HCl 4 mg 12/26/22 23:41 Ondansetron 4 Mg/2 Ml Vial IV-PUSH 12/26/23 23:40 Q8H PRN Nausea And Vomiting Pantoprazole Sodium 40 mg 12/27/22 09:00 Pantoprazole 40 Mg Tablet.Dr LEES 12/27/23 08:59 DAILY [facility] Paroxetine HCl 40 mg 12/27/22 09:00 Paroxetine 20 Mg Tablet PO 12/27/23 08:59 QAM [facility] Pregabalin 75 mg 12/27/22 09:00 Pregabalin 75 [...] 15 Gm Tube TOPICAL 12/27/23 08:59 BID [facility] Vitamin D 50 mcg 12/27/22 09:00 Cholecalciferol 25 Mcg (1,000 Units) Tablet PO 12/27/23 08:59 DAILY [facility] A&P - Hospitalist Assessment/Plan (1) Fall: (2) [...] discharge. Documented By: Carla Hagan MD 12/27/22 5572 Signed By: <Electronically signed by Carla Hagan MD> 12/27/22 1240 <Electronically signed by DO SEAN Armas> 12/27/22 0565 [facility] Work Phone: 1([phone]) 270-446303-02-2023 History and physical note Author Jolanta Mckenzie [facility] December 27, 2022 12:32am Note Date/Time December 26, 2022 11:0 5pm [facility] [address] [place] [address] Hospitalist H&P Signed with Ling Patient: Gera Perdue MR#: [id number] : 1945 Acct:[id number] Age/Sex: 77 / F Adm Date: 3 Loc: 4 Room: [address] [place] [address] Type: ADM IN Attending Dr: Jolanta Mckenzie [...] noted below or in HPI [facility] Vaccinated for COVID-19?: Yes Medical History [...] % (Auto) 24.8 % (.) 12/26/22 19:36 [place] % (Auto) 10.1 % (.) 12/26/22 19:36 Eos % (Auto) 1.1 % (.) 12/26/22 19:36 Baso % (Auto) 0.5 % (.) 12/26/22 19:36 Nucleat RBC Rel Count 0.1 /100 WBC (0-0.5) 12/26/22 19:36 Neut # (Auto) 7.6 x10E3/uL (1.8-7.7) 12/26/22 19:36 Lymph # (Auto) 3.0 x10E3/uL (1.00-4.8) 12/26/22 19:36 [place] # (Auto) 1.2 x10E3/uL (0.0-0.8) H 12/26/22 [...] signed by MD SEAN Mann> 12/27/22 002 [facility] Work Phone: 1([phone] 696-282107-01-2022 NoteHISTORY: Bone density screening. COMPARISON: 08/03/2020 PROCEDURE: [...] by Edgar Hooper on 05/01/2022 1000[id number] Evaluation note* Encounter Date Diagnosis Assessment Notes Treatment Notes Treatment Clinical Notes Mar, Major depressive disorder, recurrent severe without psychotic features (ICD-10 - F33.2) [facility] Other 03-24-2022 Evaluation note* Encounter Date Diagnosis Assessment Notes Treatment Notes Treatment Clinical Notes Dec, GERD (gastroesophageal reflux disease) (ICD-10 - K21.9) [facility] Other Discharge summary Author Jesus Alberto Aquino [facility] December 31, 2022 3:43pm Note Date/Time December 31, 2022 11:5 7am [facility] [address] [place] [address] Discharge Summary Signed Patient: Gera Perdue MR#: [id number] : 1945 Acct:[id number] Age/Sex: 77 / F Adm Date: 3 Loc: Room: [address] [place] [address]: Jesus Alberto Aquino MD Copies [...] % (Auto) N/A, Lymph % (Auto) N/A, [place] % (Auto) N/A, Eos % (Auto) N/A, Baso % (Auto) N/A, Nucleat RBC Rel Count N/A, Neut # (Auto) N/A, Lymph # (Auto) N/A, [place] # (Auto) N/A, Eos # (Auto) N/A, [...] 09:23 Discharge Plan Discharge Plan Patient Disposition: [facility] Facility Activity: No Activity Restriction Diet: Regular [...] by Jesus Alberto Aquino MD> 12/31/22 1543 [facility] Work Phone: Discharge summary Author Jolanta Mckenzie [facility] July 14, 2023 11:16am Note Date/Time July 14, 2023 11:16am [facility] [address] [place] [address] Discharge Summary Signed Patient: Gera Perdue MR#: [id number] : 1945 Acct:[id number] Age/Sex: 77 / F Adm Date: 3 Loc: Room: [address] [place] [address]: Jolanta Mckenzie MD Copies to: [...] % (Auto) 69.9, Lymph % (Auto) 22.1, [place] % (Auto) 7.3, Eos % (Auto) 0.4, Baso % (Auto) 0.3, Nucleat RBC Rel Count 0.1, Neut # (Auto) 13.5 H, Lymph # (Auto) 4.3, [place] # (Auto) 1.4 H, Eos # (Auto) [...] signed by Jolanta Mckenzie MD> 07/14/23 1116 [facility] Work Phone: Discharge summary Author Michoacano Mckenzie [facility] February 17, 2024 4:57pm Note Date/Time February 17, 2024 4:4 6pm [facility] [address] [place] [address] Discharge Summary Signed Patient: Gera Predue MR#: [id number] : 1945 Acct:[id number] Age/Sex: 78 / F Adm Date: 4 Loc: Room: [address] [place] [address]: Michoacano Mckenzie MD Copies to: [...] 85, Calcium 8.5 L Documented By: Michoacano Mkcenzie MD 4 1645 Signed By: <Electronically signed by Michoacano Mckenzie MD> 02/17/24 1657 [facility] Work Phone: Evaluation noteNo InformationNort Intellio Other Evaluation noteNo assessment information available [facility] Work Phone: Evaluation note* Diagnosis Onset Date Resolution Status Accidental fall acute Head injury acute Inability to perform activities of daily living acute [facility] Work Phone: Evaluation note* Diagnosis Onset Date Resolution Status Accidental fall acute Acute hip pain acute Fall acute Head injury acute Inability to perform activities of daily living acute Physical deconditioning acut e [facility] Work Phone: Evaluation note* Diagnosis Onset Date Resolution Status Acute exacerbation of chroni c obstructive pulmonary disease acute CAD (coronary artery disease) acute Closed head injury acute Contusion of hip acute Fall acute Umbilical hernia acute UTI (urinary tract infection) acute [facility] Work Phone: Evaluation note* Diagnosis Onset Date Resolution Status Acute exacerbation of chroni c obstructive pulmonary disease acute CAD (coronary artery disease) acute Closed head injury acute Contusion of hip acute Fall acute Umbilical hernia acute UTI (urinary tract infection) acute Acute UTI acute ARTURO (acute kidney injury) ac [place] Weakness acute [facility] Work Phone: Evaluation note* Diagnosis SOB [...] emphysema type (CMS/HCC) documented in this encounter [facility] HealthcareEvaluation note* Diagnosis Shortness of breath Coronary artery disease involving lower [place] coronary artery of [place] heart without angina pectoris Stage 3b chronic [...] Cough Current smoker documented in this encounter [facility] Work Phone: Evaluation note* Diagnosis Shortness of breath documented in this encounter [facility] Work Phone: Evaluation note* Diagnosis Shortness of breath Coronary artery disease involving lower [place] coronary artery of [place] heart without angina pectoris History of PTCA Postsurgical percutaneous transluminal coronary angioplasty status Essential hypertension Unspecified essential hypertension Hyperlipidemia, mixed Mixed hyperlipidemia Obstructive sleep apnea syndrome Obstructive sleep apnea (adult) (pediatric) BMI 35.0-35.9,adult Current smoker Chronic hypoxemic respiratory failure (Multi) Chronic respiratory failure Encounter to discuss test results Other specified counseling documented in this encounter [facility] Work Phone: Evaluation note* Diagnosis Onset Date Resolution Status Nausea and vomiting acute Pneumonia acute UTI (urinary tract infection) acute [facility] Work Phone: Evaluation note* Diagnosis Onset Date Resolution Status CAD (coronary artery disease) acute GERD (gastroesophageal reflux disease) acute Nausea and vomiting acute Pneumonia acute UTI (urinary tract infection) acute COPD (chronic obstructive pulmonary disease) chronic [facility] Work Phone: History and physical note Author Jolanta Mckenzie [facility] December 27, 2022 12:32am Note Date/Time December 26, 2022 11:0 5pm [facility] [address] [place] [address] Hospitalist H&P Signed with Addenda Patient: Gera Perdue MR#: [id number] : 1945 Acct:[id number] Age/Sex: 77 / F Adm Date: 3 Loc: N Room: [address] [place] [address] Type: ADM IN Attending Dr: Jolanta Mckenzie [...] % (Auto) 24.8 % (.) 12/26/22 19:36 [place] % (Auto) 10.1 % (.) 12/26/22 19:36 Eos % (Auto) 1.1 % (.) 12/26/22 19:36 Baso % (Auto) 0.5 % (.) 12/26/22 19:36 Nucleat RBC Rel Count 0.1 /100 WBC (0-0.5) 12/26/22 19:36 Neut # (Auto) 7.6 x10E3/uL (1.8-7.7) 12/26/22 19:36 Lymph # (Auto) 3.0 x10E3/uL (1.00-4.8) 12/26/22 19:36 [place] # (Auto) 1.2 x10E3/uL (0.0-0.8) H 12/26/22 [...] signed by MD SEAN Mann> 12/27/22 0022 [facility] Work Phone: History and physical note Author Jolanta Mckenzie [facility] July 10, 2023 1:50pm Note Date/Time July 10, 2023 1:44pm [facility] [address] [place] [address] Hospitalist H&P Signed Patient: Gera Perdue MR#: [id number] : 1945 Acct:[id number] Age/Sex: 77 / F Adm Date: 3 Loc: Room: [address] [place] [address] Type: ADM IN Attending Dr: Jolanta Mckenzie [...] negative unless noted below or in HPI [facility] Medical History Arthritis COPD (chronic obstructive [...] % (Auto) 31.5 % (.) 07/10/23 08:44 [place] % (Auto) 6.5 % (.) 07/10/23 08:44 Eos % (Auto) 0.4 % (.) 07/10/23 08:44 Baso % (Auto) 0.2 % (.) 07/10/23 08:44 Nucleat RBC Rel Count 0.1 /100 WBC (0-0.5) 07/10/23 08:44 Neut # (Auto) 13.1 x10E3/uL (1.8-7.7) H 07/10/23 08:44 Lymph # (Auto) 6.7 x10E3/uL (1.00-4.8) H 07/10/23 08:44 [place] # (Auto) 1.4 x10E3/uL (0.0-0.8) H 07/10/23 [...] pH 8.5 (5.0-9.0) 07/10/23 08:44 Ur Specific [place] 1.022 (1.001-1.030) 07/10/23 08:44 Urine Protein 30 [...] signed by Jolanta Mckenzie MD> 07/10/23 1350 [facility] Work Phone: History general Narrative - [...] severe diverticulosis, >10cm removed. [facility] EGD Surgical History colostomy 01/07 per [facility] Surgical History Bowel resection with reversal o f colostomy 02-25-2015 Surgical History SKIN BIOPSY X 2 ON FACE 6 Surgical History left IM nailing 09-02-20 Surgical History left hip FX 10/2020 Hospitalization History 6 child births Hospitalization History See Above Hospitalization History Kidney stones Hospitalization History [facility] bowel obstruction 10/2019 Hospitalization History Fell/ UTI Hospitalization History FR pt fell left hip fr acture 10/2020 [facility] Other Hospital course Narrative No data available for this section [facility] Discharge instructions Additional Instructions Use the albuterol inhaler as prescribed here COPD exacerbation take prednisone as prescribed. Take Tylenol as needed for hip pain. Follow-up with your PCP for reevaluation in 5 to 7 days.[facility] Work Phone: Hospital Discharge instructions Additional [...] fall precautions Care to be managed by [facility] Work Phone: Hospital Discharge instructionsAmbulatory [...] wraps to BLE. Change daily and prn -[facility] Work Phone: Hospital Discharge instructions Additional [...] fall precautions Care to be managed by [facility] Work Phone: Hospital Discharge instructions No data available for this section [facility] filedocumented [facility] this [facility] filedocumented in this encounter [facility]Not on filedocumented in this encounter [facility] Author Carla Hagan [facility] December 27, 2022 12:40pm Note Date/Time December 27, 2022 9:25 am [facility] [address] [place] [address] Hospitalist Progress Note Signed Patient: Gera Perdue MR#: [id number] : 1945 Acct:[id number] Age/Sex: 77 / F Adm Date: 3 Loc: 4N Room: 4G4665-5 Type: ADM IN Attending Dr: Carla Hagan [...] 40 Mg Tablet PO 12/27/23 20:59 QPM [facility] Budesonide 0.5 mg 12/27/22 06:00 Budesonide 0.5 Mg/2 Ml Ampul.Neb INHALATION 12/27/23 05:59 BID@0600,1800 [facility] Bupropion HCl 300 mg 12/27/22 09:00 Bupropion 300 Mg Tab.Er.24h PO 12/27/23 08:59 QAM [facility] Calcium Carbonate 600 mg 12/27/22 09:00 Calcium Carbonate 500 Mg Tablet PO 12/27/23 08:59 DAILY [facility] Clopidogrel Bisulfate 75 mg 12/27/22 09:00 Clopidogrel Bisulfate 75 Mg Tablet PO 12/27/23 08:59 DAILY [facility] Heparin Sodium (Porcine) 5,000 unit 12/27/22 06:00 12/27/22 06:14 Heparin 5,000 Unit/Ml Vial SUBCUT 12/27/23 05:59 5,000 unit Q8HR [facility] Administration Hydromorphone HCl 0.5 mg 12/27/22 03:58 Hydromorphone 0.5 Mg/0.5 Ml Syringe IV-PUSH Q4H PRN Pain Scale 8 - 10 Lisinopril 5 mg 12/27/22 09:00 Lisinopril 5 Mg Tablet PO 12/27/23 08:59 DAILY [facility] Metoprolol Succinate 50 mg 12/27/22 09:00 Metoprolol Succinate 50 Mg Tab.Er.24h PO 12/27/23 08:59 DAILY [facility] Nicotine 1 each 12/27/22 00:30 12/27/22 00:48 Nicotine Patch 14 Mg/24hr 1 Each Patch.Td24 TRANSDERML 01/08/23 09:01 1 each DAILY [facility] Administration Nystatin 1 applic 12/27/22 00:30 12/27/22 00:48 Nystatin 100,000 Unit/Gram Powder 15 Gm Bottle TOPICAL 12/27/23 00:29 1 applic BID [facility] Administration Ondansetron HCl 4 mg 12/26/22 23:41 Ondansetron 4 Mg/2 Ml Vial IV-PUSH 12/26/23 23:40 Q8H PRN Nausea And Vomiting Pantoprazole Sodium 40 mg 12/27/22 09:00 Pantoprazole 40 Mg Tablet. PO 12/27/23 08:59 DAILY [facility] Paroxetine HCl 40 mg 12/27/22 09:00 Paroxetine 20 Mg Tablet PO 12/27/23 08:59 QAM [facility] Pregabalin 75 mg 12/27/22 09:00 Pregabalin 75 [...] 15 Gm Tube TOPICAL 12/27/23 08:59 BID [facility] Vitamin D 50 mcg 12/27/22 09:00 Cholecalciferol 25 Mcg (1,000 Units) Tablet PO 12/27/23 08:59 DAILY [facility] A&P - Hospitalist Assessment/Plan (1) Fall: (2) [...] discharge. Documented By: Carla Hagan MD 12/27/22 4535 Signed By: <Electronically signed by Carla Hagan MD> 12/27/22 1240 <Electronically signed by DO SEAN Armas> 12/27/22 113 [facility] Work Phone: Progress note Author Carla Hagan [facility] December 28, 2022 11:14am Note Date/Time December 28, 2022 9:27 am [facility] [address] [place] [address] Hospitalist Progress Note Signed Patient: Gera Perdue MR#: [id number] : 1945 Acct:[id number] Age/Sex: 77 / F Adm Date: 3 Loc: Room: [address] [place] [address] Type: ADM IN Attending Dr: Carla Hagan [...] signed by DO SEAN Armas> 12/28/22 1048 [facility] Work Phone: Progress note Author Carla Hagan [facility] December 29, 2022 10:00am Note Date/Time December 29, 2022 10:0 0am [facility] [address] [place] [address] Hospitalist Progress Note Signed Patient: Gera Perdue MR#: [id number] : 1945 Acct:[id number] Age/Sex: 77 / F Adm Date: 3 Loc: 4N Room: [address] [place] [address] Type: ADM IN Attending Dr: Carla Hagan [...] place, time and person. Morbidly obese HEENT: [place] conjunctiva and NL buccal mucosa Neck: Supple, [...] signed by Carla Hagan MD> 12/29/22 1000 [facility] Work Phone: Progress note Author Carla Hagan [facility] December 30, 2022 9:53am Note Date/Time December 30, 2022 9:53 am [facility] [address] [place] [address] Hospitalist Progress Note Signed Patient: Gera Perdue MR#: [id number] : 1945 Acct:[id number] Age/Sex: 77 / F Adm Date: 3 Loc: Room: [address] [place] [address] Type: ADM IN Attending Dr: Carla Hagan [...] place, time and person. Morbidly obese HEENT: [place] conjunctiva and NL buccal mucosa Neck: Supple, [...] <Electronically signed by Carla Hagan MD> 12/30/22 0990 [facility] Work Phone: Progress note Author Jolanta Mckenzie [facility] July 11, 2023 12:47pm Note Date/Time July 11, 2023 10:10am [facility] [address] [place] [address] Hospitalist Progress Note Signed with Addolivia Patient: Gera Perdue MR#: [id number] : 1945 Acct:[id number] Age/Sex: 77 / F Adm Date: 3 Loc: Room: [address] [place] [address] Type: ADM IN Attending Dr: Jolanta Mckenzie [...] of Service: 07/11/2023 Subjective Subjective Narrative: Ms. Perdeu was examined resting comfortably bedside this morning [...] 1,000 Ml IV 07/09/24 13:59 75 mls/hr .[id number] JERILYN Administration Ceftriaxone Sodium 1 gm in [...] signed by Jolanta Mckenzie MD> 07/11/23 1246 [facility] Work Phone: Progress note Author Jolanta Mckenzie [facility] July 12, 2023 3:00pm Note Date/Time July 12, 2023 2:16pm [facility] [address] [place] [address] Hospitalist Progress Note Signed with Addenda Patient: Gera Perdue MR#: [id number] : 1945 Acct:[id number] Age/Sex: 77 / F Adm Date: 3 Loc: Room: [address] [place] [address] Type: ADM IN Attending Dr: Jolanta Mckenzie [...] 1,000 Ml IV 07/09/24 13:59 75 mls/hr .[id number] JERILYN Administration Ceftriaxone Sodium 1 gm in [...] signed by Jolanta Mckenzie MD> 07/12/23 1457 [facility] Work Phone: Progress note Author Jolanta Mckenzie [facility] July 13, 2023 1:59pm Note Date/Time July 13, 2023 10:40am [facility] [address] [place] [address] Hospitalist Progress Note Signed with Addenda Patient: Gera Perdue MR#: [id number] : 1945 Acct:[id number] Age/Sex: 77 / F Adm Date: 3 Loc: Room: [address] [place] [address] Type: ADM IN Attending Dr: Jolanta Mckenzie [...] signed by Jolanta Mckenzie MD> 07/13/23 1356 [facility] Work Phone: Progress note No data available for this section [facility] Ryann Summary Purpose Family History No Family [...] FoundDocuments on File Type Date Recorded Patient Deposit Refund Clerk Expl anation Advance Directives and Living Will Power of Trace Clerk Latest Code Status on File Code Status Date Activated Date Inactivated Comments Full Code 08/02/2019 12:07 AM Advance Directive Response Recorded Date/ Time Advance Directives Yes May 13 2:57pm Advance Directive Response Recorded Date/ Time Advance Directives Yes May 13 1:57pm Documents on File Type Date Recorded Patient Deposit Refund Clerk Expl anation DNR Physician Order 10/29/2023 8:25 AM Durable Power of Trace Clerk 10/29/2023 6:51 AM Latest Code Status on File Code Status Date Activated Date Inactivated Comments DNR Comfort Care Arrest (DNR -CCA) [place] 10/11/2023 11:48 AM 10/23/2023 1:09 PM Code Status History Code Status Date Activated Date Inactivated Comments Full Code 10/05/2023 8:00 PM 10/11/2023 11:48 AM Hospital Course * Ellen Gonzalez MD - 08/04/2019 1:39 PM EDT [facility]PATIENT [facility] Discharge Summary Patient ID: Gera Perdue : 1945 ACCOUNT: [id number] Patient's PCP: Physician Generic (Inactive) Admit Date: [...] Assisted Dressing Assisted Toileting Assisted Feeding Independent Pharmacoepidemiologist Independent Med Delivery whole Wound Care Documentation [...] applicable) Name: Address: Dialysis Schedule: Phone: Fax: Shoe Associate/Vegetable Sorter signature: {Esignature:[id number]} PHYSICIAN SECTION Prognosis: Good Condition at Discharge: [...] sent through Care Everywhere. * Low-Fiber Diet (Armenian) documented in this encounter History of Present Illness * Ellen Gonzalez MD - 08/04/2019 10:03 AM EDT [facility]-PATIENT SERV[facility] Progress Note 08/04/2019 10:03 AM Name: Gera Perdue Acct: [id number] Room: 0236/0236-01 Day: 3 Admit Date: 08/01/2019 [...] Gonzalez MD - 08/03/2019 12:24 PM EDT [facility] IN-PATIENT SERVICE [facility] Progress Note 08/03/2019 12:24 PM Name: Gera Perdue Acct: [id number] Room: [facility] Day: 2 Admit Date: 08/01/2019 11:58 PM [...] 2.0) PATIENT NAME: Gera WAHL RECORD NO. [id number] DATE: 08/03/2019 PRIMARY CARE PHYSICIAN: Physician Generic [...] 08/02/2019 9:16 AM EDT Attempted to call [facility] pharmacy in [place] to retrieve home medication list, but pharmacy does not open until 10:00 am. Cnc Set Up Operator will attempt again after this time. * [...] Coronary atherosclerosis of unspecified type of vessel, lower [place] or graft Mixed hyperlipidemia Essential hypertension Unspecified [...] XR chest 2 views Jenna Engle MD [address] [place] [address] [address] [place] [address] Referral ID Status Reason Start Date Expiration Date Visits Requested Visits Authorized [id number] Authorized Perform Procedure 01/06/2024 01/05/2025 1 1 Specialty Diagnoses / Procedures Referred By Contac t Referred To Contact Diagnoses Shortness of breath Procedures ECG 12 Lead Jenna Engle MD [address] [facility] [address] [place] [address] Referral ID Status Reason Start Date Expiration Date V isits Requested Visits Authorized [id number] Authorized 01/06/2024 01/05/2025 1 1 Specialty Diagnoses / Procedures Referred By Contac t Referred To Contact Cardiology Diagnoses Shortness of breath Procedures Follow Up In Cardiology Jenna Engle MD [address] [facility] [address] [place] [address] Jenna Engle MD [address] [facility] [address] [place] [address] Referral ID Status Reason Start Date Expiration Date V isits Requested Visits Authorized [id number] Authorized 01/06/2024 01/05/2025 1 1 Specialty Diagnoses / Procedures Referred By Contac t Referred To Contact Cardiology Diagnoses Shortness of breath Procedures Transthoracic Echo Complete DC ECHO TTHRC R-T 2D W/WOM-MODE COMPL SPEC&COLR D Jenna Engle MD [address] [facility] [address] [place] [address] Referral ID Status Reason Start Date Expiration Date Visits Requested Visits Authorized [id number] Pending Review Perform Procedure 01/06/2024 01/05/2025 1 1 Specialty Diagnoses / Procedures Referred By Contac t Referred To Contact Roll Tender Diagnoses Essential hypertension (CMS/HCC) Stage 3a chronic kidney disease (HCC) (CMS/HCC) Sepsis with acute renal failure without septic shock, due to unspecified organism, unspecified acute renal failure type (CMS/HCC) Medication management Procedures DC OFFICE/OUTPATIENT NEW HIGH MDM 60 MINUTES Lilliam Cheek, GUEST SERVICE REPRESENTATIVE [address] [place] [address] [facility] [address] [place] [address] Referral ID Status Reason Start Date Expiration Date Visits Requested Visits Authorized [id number] Pending Review Specialty Services Required 12/09/2023 06/06/2024 1 1 Specialty Diagnoses / Procedures Referred By Contac t Referred To Contact Home Health Services Diagnoses SOB (shortness of breath) Wheezing Urinary tract bacterial infections Essential hypertension ([facility]/HCC) Mixed hyperlipidemia ([facility]/HCC) Stage 3a chronic kidney disease (HCC) ([facility]) Sepsis with acute renal failure without septic shock, due to unspecified organism, unspecified acute renal failure type ([facility]) Medication management Lilliam Cheek, GUEST SERVICE REPRESENTATIVE [address] [place] [address] Referral ID Status Reason Start Date Expiration Date Visits Requested Visits Authorized [id number] Pending Review Specialty Services Required 12/09/2023 02/07/[phone] Specialty Diagnoses / Procedures Referred By Contac t Referred To Contact Obstetrics and Gynecology Diagnoses Urinary tract bacterial infections Female bladder prolapse Procedures DC OFFICE/OUTPATIENT NEW HIGH MDM 60 MINUTES Lilliam Cheek, GUEST SERVICE REPRESENTATIVE [address] [place] [address] Cee Cordero DO [address] [place] [address] Referral ID Status Reason Start Date Expiration Date Visits Requested Visits Authorized [id number] Pending Review Specialty Services Required 12/09/2023 06/06/2024 1 1 Additional Source Comments INFORMATION SOURCE (unrecogn ized section and content) DATE CREATED AUTHOR 07/12/2018 [facility] DATE CREATED AUTHOR AUTHOR'S ORGANIZ ATION 08/29/2019 [facility] DATE CREATED AUTHOR AUTHOR'S ORGANIZ ATION 12/24/2020 [facility] DATE CREATED AUTHOR AUTHOR'S ORGANIZ ATION 05/01/2022 [facility] dical Specialist DATE CREATED AUTHOR AUTHOR'S ORGANIZ ATION 01/02/2023 [facility] DATE CREATED AUTHOR AUTHOR'S ORGANIZ ATION 01/21/2023 [facility] DATE CREATED AUTHOR AUTHOR'S ORGANIZ ATION 02/01/2024 [facility] DATE CREATED AUTHOR AUTHOR'S ORGANIZ ATION 02/16/2024 [facility] DATE CREATED AUTHOR AUTHOR'S ORGANIZ ATION 02/26/2024 [facility] DATE CREATED AUTHOR AUTHOR'S ORGANIZ ATION 04/23/[address] [facility] DATE CREATED AUTHOR AUTHOR'S ORGANIZ ATION 05/02/2024 [facility] DATE CREATED AUTHOR AUTHOR'S ORGANIZ ATION 07/04/2024 [facility] dical Specialists [facility] DATE CREATED AUTHOR AUTHOR'S ORGANIZ ATION 09/27/2024 [facility] Reason for Visit (unrecogniz ed section and content) Status Reason Specialty Diagnoses / Procedures Referre d By Contact Referred To Contact Diagnoses Small bowel obstruction (HCC) LEONARDO Verenice Chilel MD [address] [address] [facility] Reason Onset Date Comments Neuro Appt 10/30/2023 Reason Comments Hospital Follow-up Reason Comments New Patient Visit Old [facility]pm patient Specialty Diagnoses / Procedures Referred By Susanne russell Referred To Contact Cardiology Diagnoses Shortness of breath Procedures Transthoracic Echo Complete DC ECHO TTHRC R-T 2D W/WOM-MODE COMPL SPEC&COLR D Jenna Engle MD [address] [facility] [address] [place] [address] Referral ID Status Reason Start Date Expiration Date Visits Requested Visits Authorized [id number] Authorized Perform Procedure 01/06/2024 01/05/2025 1 1 Reason Comments Follow-up 1m echo results Specialty Diagnoses / Procedures Referred By Susanne russell Referred To Contact Cardiology Diagnoses Shortness of breath Procedures Follow Up In Cardiology Jenna Engle MD [address] [facility] [address] [place] [address] Jenna Engle MD [address] [place] [address] [address] [place] [address] Referral ID Status Reason Start Date Expiration Date V isits Requested Visits Authorized [id number] Authorized 01/06/2024 01/05/2025 1 1 Care Teams [...] Primary Care Provider Active Kadie Jones , [facility]- Emergency Provider Active Team Status: Active Member [...] Aquino MD Admit Provider, Attending Provider Active Manager Of Training Relationship Specialty Start Date End Date Mely Camarillo APRN-JIMMY [address] [place] [address] PCP - General Family Medicine 04/08/19 Manager Of Training Relationship Specialty Start Date End Date Mely Camarillo APRN-DIETICIAN [address] [place] [address] PCP - General Family Medicine 04/08/19 Manager Of Training Relationship Specialty Start Date End Date Mely Camarillo APRN-DIETICIAN [address] [place] [address] PCP - General Family Medicine 04/08/19 Manager Of Training Relationship Specialty Start Date End Date Gustavo Salas DO [address] [place] [address] PCP - General Internal Medicine 12/09/23 Leah Burgos, LASHAY [address] [place] [address] Registered Nurse Internal Medicine 12/09/23 Manager Of Training Relationship Specialty Start Date End Date Gustavo Salas DO [address] [place] [address] PCP - General Internal Medicine 01/06/24 Manager Of Training Relationship Specialty Start Date End Date Gustavo Salas DO [address] [place] [address] PCP - General Internal Medicine 01/06/24 Manager Of Training Relationship Specialty Start Date End Date Gustavo Salas DO [address] [place] [address] PCP - General Internal Medicine 01/06/24 Team Status: Inactive Member Role Status Dates Gustavo Salas DO Primary Care Provider Active Start: January 06, 2024 End: January 06, 2024 Jenna Engle MD Attending Provider Active Star t: January 06, 2024 End: January 06, 2024 Team Status: Active Member Role Status Dates Gustavo Salas DO Primary Care Provider Active Start: February 14, 2024 Kadie Jones [facility]- Emergency Provider Active Start: February 14, 2024 Lucho Grullon MD Admit Provider, Atte nding Provider Active Start: February 14, 2024 Team Status: Inactive Member Role Status Dates Gustavo Salas DO Primary Care Provider Active Start: February 14, 2024 End: February 17, 2024 Kadie Jones [facility] Emergency Provider Active Start: February 14, 2024 End: February 17, 2024 Lucho Grullon MD Admit Provider Active Start: February 14, 2024 End: February 17, 2024 Michoacano Mckenzie MD Attending Provider Active Start: February 14, 2024 End: February 17, 2024 Team Status: Active Member Role Status Dates Gustavo Salas DO Primary Care Provider Active Start: February 14, 2024 Kadie Jones [facility] Emergency Provider Active Start: February 14, 2024 Lucho Grullon MD Admit Provider, Atte nding Provider, Other Provider Active Start: February 14, 2024 Manager Of Training Relationship Specialty Start Date End Date Gustavo Salas DO [address] [place] [address] PCP - General Internal Medicine 12/09/23 Gustavo Salas DO [address] [place] [address] PCP - [facility] 03/28/24 10/27/24 Goals (unrecognized section and [...] BE BASED ON THE PRIMARY CLINICAL RECORDS. [employer] [facility]. provides no warranty or guarantee of the accuracy or completeness of information in this document.
[2024-10-06] MEDS: OXYCODONE HCL/ACETAMINOPHEN 5MG/325MG 2 TAB PO (21:58)
[2024-10-06 22:48] LABS: Basophils Percent Auto 0.2 % (0.2-2.0); Eosinophils Absolute Auto 0.2 10^3/uL (0.0-0.7); Eosinophils Percent Auto 1.5 % (0.9-7.0); Hematocrit 32.2 % (36.0-48.0); Hemoglobin 9.7 g/dL (12.0-16.0); Immature Granulocytes Abs Auto 0.06 10^3/uL (0.00-0.03); Immature Granulocytes Pct Auto 0.5 % (0.0-0.5); Lymphocytes Absolute Auto 1.7 10^3/uL (1.2-3.8); Lymphocytes Percent Auto 13.2 % (20.5-60.0); Mean Corpuscular HGB Conc 30.1 g/dL (29.9-35.2); Mean Corpuscular Hemoglobin 24.6 pg (26.7-34.0); Mean Corpuscular Volume 81.5 fL (81.0-99.0); Mean Platelet Volume 8.7 fL (9.5-13.5); Monocytes Absolute Auto 1.2 10^3/uL (0.3-0.8); Monocytes Percent Auto 9.5 % (1.7-12.0); Neutrophils Absolute Auto 9.7 10^3/uL (1.4-6.5); Neutrophils Percent Auto 75.1 % (43.0-75.0); Platelet Count 227 10^3/uL (150-450); Red Blood Count 3.95 10^6/uL (4.20-5.40); Red Cell Distribution Width 22.1 % (11.0-15.0); White Blood Count 12.9 10^3/uL (4.0-11.0)
[2024-10-06 23:06] LABS: Alanine Aminotransferase 27 U/L (14-59); Albumin Globulin Ratio 0.7; Albumin Level 2.8 g/dL (3.4-5.0); Alkaline Phosphatase 95 U/L (46-116); Aspartate Amino Transferase 18 U/L (15-37); Bilirubin Total 0.7 mg/dL (0.2-1.0); Calcium 8.9 mg/dL (8.5-10.1); Carbon Dioxide 29.6 mmol/L (21.0-32.0); Estimated GFR (African America >60 (>=60 mL/min/1.73m^2); Estimated GFR (Non-African Ame 54 (>=60 mL/min/1.73m^2); Globulin 4.1 g/dL; Glucose 104 mg/dL (74-106); Magnesium 1.5 mg/dL (1.8-2.4); Total Protein 6.9 g/dL (6.4-8.2)
[2024-10-06 23:16] LABS: Anion Gap 9.5; Chloride 104 mmol/L (98-107); Potassium 4.1 mmol/L (3.5-5.1); Sodium 139 mmol/L (136-145)
[2024-10-07] VITALS (18 sets, daily range): BP systolic 114–180; BP diastolic 61–96; PULSE 90–107; TEMP 36.6–36.9; O2SAT 91–100
[2024-10-07] MEDS: CYCLOBENZAPRINE HCL 10 MG TABLET 5 MG PO (00:58)
[2024-10-07 04:05] LABS: Bilirubin Urine NEGATIVE (NEGATIVE); Blood Urine SMALL (NEGATIVE); Clarity Urine CLEAR (CLEAR); Color Urine YELLOW (YELLOW); Glucose Urine UA NEGATIVE (NEGATIVE); Ketones Urine 15 mg/dL (NEGATIVE); Leukocyte Esterase Urine NEGATIVE (NEGATIVE); Nitrite Urine NEGATIVE (NEGATIVE); Protein Urine TRACE mg/dL (NEG/TRACE); Specific Gravity Urine >=1.030 (1.005-1.025); Urobilinogen Urine 0.2 EU/dL (0.2-1.0); pH Urine 5.5 (5.0-9.0)
[2024-10-07 04:20] LABS: Bacteria Urine MODERATE #/HPF (NONE SEEN); Calcium Oxalate Crystals Urine RARE; Cast Seen? NONE SEEN #/LPF (NONE SEEN); Crystals Seen? Seen #/HPF (None Seen); Mucus Urine NONE SEEN (NONE SEEN); RBC Urine 0-2 #/HPF (0-2); Squamous Epithelial Cell Urine FEW #/LPF (NONE/RARE); Urine Culture Indicated YES; WBC Urine 0-2 #/HPF (NONE SEEN)
[2024-10-07] MEDS: IPRATROPIUM/ALBUTEROL SULFATE 3 ML AMPUL.NEB IH ×4 (05:00→22:08)
[2024-10-07] MEDS: OXYCODONE HCL/ACETAMINOPHEN 5MG/325MG 2 TAB PO ×2 (05:18→16:57)
[2024-10-07 05:52] LABS: Hematocrit 34.4 % (36.0-48.0); Hemoglobin 10.2 g/dL (12.0-16.0); Mean Corpuscular HGB Conc 29.7 g/dL (29.9-35.2); Mean Corpuscular Hemoglobin 24.7 pg (26.7-34.0); Mean Corpuscular Volume 83.3 fL (81.0-99.0); Mean Platelet Volume 8.6 fL (9.5-13.5); Platelet Count 202 10^3/uL (150-450); Red Blood Count 4.13 10^6/uL (4.20-5.40); Red Cell Distribution Width 22.5 % (11.0-15.0); White Blood Count 10.8 10^3/uL (4.0-11.0)
[2024-10-07 06:04] LABS: Anion Gap 11.2; BUN Creatinine Ratio 15.8; Calcium 9.2 mg/dL (8.5-10.1); Carbon Dioxide 30.9 mmol/L (21.0-32.0); Chloride 103 mmol/L (98-107); Estimated GFR (African America >60 (>=60 mL/min/1.73m^2); Estimated GFR (Non-African Ame 53 (>=60 mL/min/1.73m^2); Glucose 71 mg/dL (74-106); Potassium 4.1 mmol/L (3.5-5.1); Sodium 141 mmol/L (136-145)
--- NOTE | 2024-10-07 06:13 | PC.NURSE ---
Pt moved via bed to MS unit room 202 at this time. Pt asked RN to call daughter to update the room change. Daughter (Kamryn) called at this time, but did not answer. Unable to leave a voicemail at this time.
--- NOTE | 2024-10-07 06:14 | P.HP_ITS ---
HPI H&P: HPI History of Present Illness Chief complaint: fall,compression fx T6 back pain Narrative: Patient status post fall about a week ago, is having increasing pain since that time, unable to ambulate secondary to the pain. In ER given morphine with some improvement in her pain, overnight she has been on oxycodone orally. Patient with aspirin allergy so unable to tolerate NSAIDs I saw patient up on the medical surgical floor she was very uncomfortable in bed secondary to pain and any movement caused severe pain. She had had a recent dose of pain medication within 2 hours, without any significant improvement with 2 pills of oxycodone Opioid HPI Opioid Management Most Recent Pain and Opioid Data: Last Pain Scale 7 10/07/24 07:00 10/07/24 Last Pain Intensity 8 09/22/24 10:09 09/22/24 Last Pain Assessment 10/07/24 08:00 Last MAR Pain Assessment 10/07/24 06:35 Last ORT Total Score 1 10/06/24 21:29 10/06/24 Last ORT Risk Category Low Risk 10/06/24 21:29 10/06/24 Risks, benefits, and alternatives of opioids discussed: Yes Review of Systems ROS Status of ROS 10 or more systems reviewed and unremark able except as noted in history and below [facility] Medical History (Updated 10/07/24 @ 08:08 by Isauro Oseguera MD) Elevated d-dimer ?R79.89 - Other specified abnormal findings of blood chemistry (ICD-10) Pneumonia ?J18.9 - Pneumonia, unspecified organism (ICD-10) Chronic respiratory failure with hypoxia ?J96.11 - Chronic respiratory failure with hypoxia (ICD-10) Anemia ?D64.9 - Anemia, unspecified (ICD-10) HLD (hyperlipidemia) ?E78.5 - Hyperlipidemia, unspecified (ICD-10) ARMAND (obstructive sleep apnea) ?G47.33 - Obstructive sleep apnea (adult) (pediatric) (ICD-10) COPD (chronic obstructive pulmonary disease) ?J44.9 - Chronic obstructive pulmonary disease, unspecified (ICD-10) HTN (hypertension) ?I10 - Essential (primary) hypertension (ICD-10) Surgical History History of colon surgery ?Z98.890 - Other specified postprocedural states (ICD-10) Family History Grandmother Family history of CHF (congestive heart failure) Family history of cancer Family history of hypertension Family history of myocardial infarction Mother Family history of CHF (congestive heart failure) Family history of cancer Family history of hypertension Family history of myocardial infarction Uncle Family history of COPD (chronic obstructive pulmonary disease) Aunt Family history of cancer Social History Within the past year, how often did you have a drink containing alcohol: never Within the past year, how often did you have six or more drinks on one occasion: never Score interpretation: A score less than 3 is consistent with normal alcohol consumption. 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 Highest level of school completed/degree received: 11th grade Are you now , , , , never or living with a partner: In a typical week, how many times do you talk on the telephone with family, friends, or neighbors: 3 or more times per week How often do you get together with friends or relatives: 3 or more times per week How often do you attend religious or quaker services: 1-3 times per year Do you belong to any clubs or organizations such as religious groups unions, [employer] or athletic groups, or school groups: yes Total score: 2 Score interpretation: A score of greater than or equal to 2 indicates the lowest level of social isolation. Little interest or pleasure in doing things: not at all Feeling down, depressed, or hopeless: not at all Feel stressed/tense/nervous/anxious/difficulty sleeping: to some extent Meds Home Medications and Allergies Home Medications ?Medication ?Instructions ?Recorded ?Confirmed ?Type albuterol sulfate 90 mcg/actuation 2 puff inhalation Q4H PRN 08/28/23 10/06/24 History aerosol inhaler shortness of breath or wheezing cholecalciferol (vitamin D3) 50 50 mcg PO DAILY 08/28/23 10/06/24 History mcg (2,000 unit) tablet pregabalin 75 mg capsule 75 mg PO BID 08/28/23 10/06/24 History melatonin 5 mg tablet 5 mg PO QPM 08/14/24 10/06/24 History fluticasone fur. 100 mcg-umeclid 1 inh inhalation QAM 09/19/24 10/06/24 History 62.5 mcg-vilant 25 mcg inhalat.powder (Trelegy Ellipta) polyethylene glycol 3350 17 17 g PO DAILY PRN constipation 10/01/24 10/06/24 Rx gram/dose oral powder (Miralax) #510 grams oxycodone-acetaminophen 5 mg-325 1 tab PO Q6H PRN pain 3 days #10 10/03/24 10/06/24 Rx mg tablet (Percocet) tabs Allergies Allergy/AdvReac Type Severity Reaction Status Date / Time aspirin Allergy Severe Hives Verified 10/03/24 15:37 Exam Constitutional Vital Signs, click to edit/add: Last Vital Signs Temp 98 F 10/07/24 05:06 Pulse 90 10/07/24 05:06 Resp 18 10/07/24 05:06 BP 167/86 H 10/07/24 05:06 Pulse Ox 98 10/07/24 05:06 O2 Del Method Nasal Cannula 10/07/24 05:06 O2 Flow Rate 3 10/07/24 05:06 Documenting provider has reviewed patient's vital signs: yes Common normals: apparent distress (Moderate to severe painful distress) Chest Common normals: inspection of chest normal (No rash or ecchymosis); palpation of chest abnormal Respiratory Common normals: no use of accessory muscles and clear to auscultation bilaterally; abnormal respiratory effort (Shallow respirations secondary to pain) Effort & inspection: able to speak in complete sentences and labored (Due to shallow respirations) Cardio Common normals: regular rate and regular rhythm GI Common normals: soft to palpation and non-tender; negative for Normal to inspection, nondistended, normoactive bowel sounds present (Morbid obesity) Back & Pelvis Common normals: CVA tenderness (Severe left-sided back pain from lumbar spine to her left lateral chest wal) Neuro Common normals: oriented x3 and CN's II-XII intact bilaterally Sensorium/orientation: awake, alert, oriented to person, oriented to place and oriented to time Psych Attitude: not calm (Anxious due to pain) Activity/motor behavior: appropriate eye contact Results Labs Labs: Short CBC 10/06/24 10/07/24 Range/Units 22:40 05:17 WBC 12.9 H 10.8 (4.0-11.0) 10^3/uL Hgb 9.7 L 10.2 L (12.0-16.0) g/dL Hct 32.2 L 34.4 L (36.0-48.0) % Plt Count 227 202 (150-450) 10^3/uL BMP 10/06/24 10/07/24 22:40 05:17 Sodium 139 141 Potassium 4.1 4.1 Chloride 104 103 Carbon Dioxide 29.6 30.9 BUN 18.0 16.0 Creatinine 1.00 1.01 Glucose 104 71 L Calcium 8.9 9.2 Liver Function 10/06/24 Range/Units 22:40 Total Bilirubin 0.7 (0.2-1.0) mg/dL AST 18 (15-37) U/L ALT 27 (14-59) U/L Alkaline Phosphatase 95 (46-116) U/L Albumin 2.8 L (3.4-5.0) g/dL Urine 10/07/24 Range/Units 02:58 Urine Color Yellow (YELLOW) Urine Clarity Clear (CLEAR) Urine pH 5.5 (5.0-9.0) Ur Specific [place] >=1.030 A (1.005-1.025) Urine Protein Trace (NEG/TRACE) mg/dL Urine Glucose (UA) Negative (NEGATIVE) mg/dL Assessment and Plan Assessment and Plan (1) Compression fracture: (2) Back pain: Qualifiers: Back pain laterality: left Back pain location: thoracic back pain Chronicity: acute Qualified Code(s): M54.6 - Pain in thoracic spine (3) Strain of lumbar region: (4) Dyspnea: (5) Chronic respiratory failure with hypoxia: (6) ARMAND (obstructive sleep apnea): (7) COPD (chronic obstructive pulmonary disease): (8) HTN (hypertension): Qualifiers: Hypertension type: primary hypertension Qualified Code(s): I10 - Essential (primary) hypertension Plan Admission findings: Uncontrolled hypertension, sinus tachycardia, leukocytosis with mild dehydration secondary to poor outpatient pain control with oral medications for T6 compression fracture. T6 compression fracture with severe pain. Placed in observation bed overnight, pain persisting despite oral medications. She took 2 Percocet and still having 10 out of 10 pain as documented in the nursing notes. Will start patient on as needed Dilaudid. With her COPD and chronic hypoxic respiratory failure she will require intensive monitoring for both hypoxia and hypotension, patient high risk for hypoxia to with IV narcotics but failing oral therapy. Unable to use NSAIDs secondary to hives related to aspirin. Will try 1 dose of Decadron for pain control. PT to work with patient today. Suspect will need rehab but will need to be off of IV pain medications Mild dehydration with concentrated urinalysis. Watch p.o. intake Uncontrolled hypertension-improved this morning Leukocytosis on admission-no other infectious etiology and is returned to normal today. Repeat in a.m. Chronic hypoxic respiratory failure secondary to COPD and recent pneumonia- patient high risk for hypoxia with pain control as outlined above, continuous cardiac monitoring continuous pulse oximetry Insomnia-continue with home medications Admission status: Initially placed in observation, she was given oral pain medications. Oral pain medications have not really solved her pain at all. She still 10 out of 10 pain 2 hours after taking [address] of [address]. Place patient on Dilaudid as needed every 3 hours. She will need intensive cardiac and pulse oximetry monitoring secondary to her chronic hypoxic respiratory failure secondary to COPD placing her at high risk for acute hypoxia. Feeling the observational time. Requiring IV pain medications will change patient to inpatient status as medically necessary treatment, IV pain medications, will span 2 midnights.
[2024-10-07] MEDS: CALCITONIN,SALMON,SYNTHETIC 30 SPRAY/3.7 ML BOTTLE NS (06:54)
--- NOTE | 2024-10-07 08:00 | CM.NOTE ---
Pt voices she has a wheelchair at home, walker, and passport services that come in once a week. PT and OT will evaluate pt.
--- NOTE | 2024-10-07 08:27 | CM.NOTE ---
Rounds made with Dr. Oseguera, pt c/o severe pain from fall. Pt was given oral pain medication @ 5am. Dr. Oseguera will look at orders for pain control, no discharge today. PT and OT to evaluate pt for discharge planning.
[2024-10-07] MEDS: CHOLECALCIFEROL (VITAMIN D3) 25 MCG/1,000 UNITS TABLET 50 MCG PO (08:34)
[2024-10-07] MEDS: HYDROMORPHONE HCL 1 MG/ML CARTRIDGE IVP ×2 (08:34→21:36)
[2024-10-07] MEDS: PREGABALIN 75 MG CAPSULE PO ×2 (08:34→21:35)
[2024-10-07] MEDS: DEXAMETHASONE SOD PHOS 10 MG/ML VIAL IV (08:34)
[2024-10-07] MEDS: BUDESONIDE 0.5 MG/2 ML AMPULE NEB IH ×2 (10:34→22:08)
--- NOTE | 2024-10-07 10:41 | CM.NOTE ---
Important Message From Medicare discussed with pt, pt verbalizes understanding and signs paper. Original given to pt and copy placed on pt's chart.
--- NOTE | 2024-10-07 12:01 | SWNOTE1 ---
SW received call from [employer]. Pt has [employer] services and they pay for her to go to adult daycare 4-5 times a week. They also provide meals for her and hygiene supplies. They do not have a passport aide coming in at this time. She stated she has had [facility] in past. Last time she was skilled was back in January. SW let her know that PT/OT are saying at this time that once pain controlled she can return home with HH. SW to speak with pt about discharge plans.
--- NOTE | 2024-10-07 13:19 | SWNOTE1 ---
SW met with pt to discuss dc needs. Pt does live at home with her daughter. Pt's daughter does work and pt does go to adult day care. She stated she really likes day care as they do activities and paint. Pt does wear home oxygen 3 liters. Pt does still have HH services coming in. SW to check company. Pt does want to return home and resume HH services. At this time pt has no discharge concerns. SW to follow as needed.
--- NOTE | 2024-10-07 13:21 | SWNOTE1 ---
Pt's home oxygen is thru [employer]. JULIAN called [facility] and pt is current with them. JULIAN sent over ED note and PT/OT notes from today.
--- NOTE | 2024-10-07 13:26 | SWNOTE1 ---
SW consulted for advanced directives. SW checked and pt had HCPOA scanned in system and her daughter is POA. SW to review with pt.
--- NOTE | 2024-10-07 13:36 | SWNOTE1 ---
SW went back and spoke with pt about her advanced directives. SW let her know that we do have a HCPOA on file and her daughter, Kamryn is HCPOA. Pt confirms she wants Kamryn as her HCPOA. Pt then started talking about her finances and she does not know what to do with her money for when she passes. SW advised pt that she should go to a transmitter engineer in charge and get the financial piece taken care of sooner than later so that her children do not end up fighting over it. Pt voiced understanding.
[2024-10-07] MEDS: HYOSCYAMINE SULFATE 0.125 MG TAB.SUBL SL (21:35)
[2024-10-07] MEDS: ACETAMINOPHEN 325 MG TABLET 650 MG PO (21:35)
[2024-10-08] VITALS (11 sets, daily range): BP systolic 138–145; BP diastolic 67–75; PULSE 97–122; TEMP 36.6; O2SAT 93–98; BMI 40.3
[2024-10-08] MEDS: OXYCODONE HCL/ACETAMINOPHEN 5MG/325MG 2 TAB PO (01:52)
[2024-10-08] MEDS: HYDROMORPHONE HCL 1 MG/ML CARTRIDGE IVP (01:52)
[2024-10-08] MEDS: IPRATROPIUM/ALBUTEROL SULFATE 3 ML AMPUL.NEB IH ×2 (05:16→11:08)
[2024-10-08 06:24] LABS: Anion Gap 11.6; BUN Creatinine Ratio 13.1; Calcium 8.6 mg/dL (8.5-10.1); Carbon Dioxide 33.3 mmol/L (21.0-32.0); Chloride 107 mmol/L (98-107); Estimated GFR (African America >60 (>=60 mL/min/1.73m^2); Estimated GFR (Non-African Ame 50 (>=60 mL/min/1.73m^2); Glucose 162 mg/dL (74-106); Potassium 3.9 mmol/L (3.5-5.1); Sodium 148 mmol/L (136-145)
--- NOTE | 2024-10-08 07:29 | CM.NOTE ---
Rounds made with Dr. Oseguera, discussed with pt about discharge to home. PT will evaluate pt again today prior to discharge. Pt is set up for [facility] for discharge. Pt will f/u with PCP in one week.
--- NOTE | 2024-10-08 08:43 | P.HP_ITS ---
HPI H&P: HPI History of Present Illness Chief complaint: fall,compression fx T6 back pain Narrative: Patient status post fall about a week ago, is having increasing pain since that time, unable to ambulate secondary to the pain. In ER given morphine with some improvement in her pain, overnight she has been on oxycodone orally. Patient with aspirin allergy so unable to tolerate NSAIDs I saw patient up on the medical surgical floor she was very uncomfortable in bed secondary to pain and any movement caused severe pain. She had had a recent dose of pain medication within 2 hours, without any significant improvement with 2 pills of oxycodone Opioid HPI Opioid Management Most Recent Pain and Opioid Data: Last Pain Scale 8 10/08/24 02:15 10/08/24 Last Pain Intensity 8 09/22/24 10:09 09/22/24 Last Pain Assessment 10/08/24 07:33 Last MAR Pain Assessment 10/08/24 03:19 Last ORT Total Score 1 10/06/24 21:29 10/06/24 Last ORT Risk Category Low Risk 10/06/24 21:29 10/06/24 Review of Systems ROS Status of ROS 10 or more systems reviewed and unremark able except as noted in history and below PFSH PFSH Medical History Elevated d-dimer ?R79.89 - Other specified abnormal findings of blood chemistry (ICD-10) Pneumonia ?J18.9 - Pneumonia, unspecified organism (ICD-10) Chronic respiratory failure with hypoxia ?J96.11 - Chronic respiratory failure with hypoxia (ICD-10) Anemia ?D64.9 - Anemia, unspecified (ICD-10) HLD (hyperlipidemia) ?E78.5 - Hyperlipidemia, unspecified (ICD-10) ARMAND (obstructive sleep apnea) ?G47.33 - Obstructive sleep apnea (adult) (pediatric) (ICD-10) COPD (chronic obstructive pulmonary disease) ?J44.9 - Chronic obstructive pulmonary disease, unspecified (ICD-10) HTN (hypertension) ?I10 - Essential (primary) hypertension (ICD-10) Surgical History History of colon surgery ?Z98.890 - Other specified postprocedural states (ICD-10) Family History Grandmother Family history of CHF (congestive heart failure) Family history of cancer Family history of hypertension Family history of myocardial infarction Mother Family history of CHF (congestive heart failure) Family history of cancer Family history of hypertension Family history of myocardial infarction Uncle Family history of COPD (chronic obstructive pulmonary disease) Aunt Family history of cancer Social History Within the past year, how often did you have a drink containing alcohol: never Within the past year, how often did you have six or more drinks on one occasion: never Score interpretation: A score less than 3 is consistent with normal alcohol consumption. 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 Highest level of school completed/degree received: 11th grade Are you now , , , , never or living with a partner: In a typical week, how many times do you talk on the telephone with family, friends, or neighbors: 3 or more times per week How often do you get together with friends or relatives: 3 or more times per week How often do you attend nondenominational or christian services: 1-3 times per year Do you belong to any clubs or organizations such as nondenominational groups unions, [employer] or athletic groups, or school groups: yes Total score: 2 Score interpretation: A score of greater than or equal to 2 indicates the lowest level of social isolation. Little interest or pleasure in doing things: not at all Feeling down, depressed, or hopeless: not at all Feel stressed/tense/nervous/anxious/difficulty sleeping: to some extent Meds Home Medications and Allergies Home Medications ?Medication ?Instructions ?Recorded ?Confirmed ?Type albuterol sulfate 90 mcg/actuation 2 puff inhalation Q4H PRN 08/28/23 10/06/24 History aerosol inhaler shortness of breath or wheezing cholecalciferol (vitamin D3) 50 50 mcg PO DAILY 08/28/23 10/06/24 History mcg (2,000 unit) tablet pregabalin 75 mg capsule 75 mg PO BID 08/28/23 10/06/24 History melatonin 5 mg tablet 5 mg PO QPM 08/14/24 10/06/24 History fluticasone fur. 100 mcg-umeclid 1 inh inhalation QAM 09/19/24 10/06/24 History 62.5 mcg-vilant 25 mcg inhalat.powder (Trelegy Ellipta) polyethylene glycol 3350 17 17 g PO DAILY PRN constipation 10/01/24 10/06/24 Rx gram/dose oral powder (Miralax) #510 grams oxycodone-acetaminophen 5 mg-325 1 tab PO Q6H PRN pain 3 days #10 10/03/24 10/06/24 Rx mg tablet (Percocet) tabs Allergies Allergy/AdvReac Type Severity Reaction Status Date / Time aspirin Allergy Severe Hives Verified 10/03/24 15:37 Exam Constitutional Vital Signs, click to edit/add: Last Vital Signs Temp 97.9 F 10/08/24 04:00 Pulse 100 H 10/08/24 08:00 Resp 18 10/08/24 05:18 BP 138/67 10/08/24 04:00 Pulse Ox 98 10/08/24 05:18 O2 Del Method Nasal Cannula 10/08/24 05:18 O2 Flow Rate 2 10/08/24 05:18 Neck & C-Spine Common normals: no lymphadenopathy and supple; negative for full ROM Cervical spine: cervical ROM not normal Lymph Lymphatic: no lymphadenopathy noted Chest Common normals: inspection of chest normal Respiratory Common normals: normal respiratory effort and no retractions GI Common normals: Normal to inspection, nondistended, normoactive bowel sounds present Extremity Common normals: normal to inspection and full ROM Neuro Other: see PT notes for strength Results Labs Labs: BMP 10/08/24 05:25 Sodium 148 H Potassium 3.9 Chloride 107 Carbon Dioxide 33.3 H BUN 14.0 Creatinine 1.07 H Glucose 162 H Calcium 8.6 Assessment and Plan Assessment and Plan (1) Compression fracture: (2) Back pain: Qualifiers: Back pain laterality: left Back pain location: thoracic back pain Chronicity: acute Qualified Code(s): M54.6 - Pain in thoracic spine (3) Strain of lumbar region: (4) Dyspnea: (5) Chronic respiratory failure with hypoxia: (6) ARMAND (obstructive sleep apnea): (7) COPD (chronic obstructive pulmonary disease): (8) HTN (hypertension): Qualifiers: Hypertension type: primary hypertension Qualified Code(s): I10 - Essential (primary) hypertension Plan Admission findings: Uncontrolled hypertension, sinus tachycardia, leukocytosis with mild dehydration secondary to poor outpatient pain control with oral medications for T6 compression fracture. T6 compression fracture with severe pain. Placed in observation bed overnight, pain persisting despite oral medications. She took 2 Percocet and still having 10 out of 10 pain as documented in the nursing notes. Will start patient on as needed Dilaudid. With her COPD and chronic hypoxic respiratory failure she will require intensive monitoring for both hypoxia and hypotension, patient high risk for hypoxia to with IV narcotics but failing oral therapy. Unable to use NSAIDs secondary to hives related to aspirin. Will try 1 dose of Decadron for pain control. PT to work with patient today. Suspect will need rehab but will need to be off of IV pain medications Mild dehydration with concentrated urinalysis. Watch p.o. intake Uncontrolled hypertension-improved this morning Leukocytosis on admission-no other infectious etiology and is returned to normal today. Repeat in a.m. Chronic hypoxic respiratory failure secondary to COPD and recent pneumonia- patient high risk for hypoxia with pain control as outlined above, continuous cardiac monitoring continuous pulse oximetry Insomnia-continue with home medications Admission status: Initially placed in observation, she was given oral pain medications. Oral pain medications have not really solved her pain at all. She still 10 out of 10 pain 2 hours after taking 10 mg of [address]. Place patient on Dilaudid as needed every 3 hours. She will need intensive cardiac and pulse oximetry monitoring secondary to her chronic hypoxic respiratory failure secondary to COPD placing her at high risk for acute hypoxia. Feeling the observational time. Requiring IV pain medications will change patient to inpatient status as medically necessary treatment, IV pain medications, will span 2 midnights. Urinary Catheter Management Urinary Catheter Management Pure Wick: Cath placed during this visit: yes Urethral indwelling: No Insertion date: 10/07/24 Insertion time: 15:15
--- NOTE | 2024-10-08 08:53 | P.PN_ITS ---
Exam Constitutional Vital Signs, click to edit/add: Last Vital Signs Temp 97.9 F 10/08/24 04:00 Pulse 100 H 10/08/24 08:00 Resp 18 10/08/24 05:18 BP 138/67 10/08/24 04:00 Pulse Ox 98 10/08/24 05:18 O2 Del Method Nasal Cannula 10/08/24 05:18 O2 Flow Rate 2 10/08/24 05:18 Progress Note: Objective Labs Labs: BMP 10/08/24 05:25 Sodium 148 H Potassium 3.9 Chloride 107 Carbon Dioxide 33.3 H BUN 14.0 Creatinine 1.07 H Glucose 162 H Calcium 8.6 Progress Note: A&P Assessment and Plan (1) Compression fracture: (2) Back pain: Qualifiers: Back pain laterality: left Back pain location: thoracic back pain Chronicity: acute Qualified Code(s): M54.6 - Pain in thoracic spine (3) Strain of lumbar region: (4) Dyspnea: (5) Chronic respiratory failure with hypoxia: (6) ARMAND (obstructive sleep apnea): (7) COPD (chronic obstructive pulmonary disease): (8) HTN (hypertension): Qualifiers: Hypertension type: primary hypertension Qualified Code(s): I10 - Essential (primary) hypertension Plan Admission findings: Uncontrolled hypertension, sinus tachycardia, leukocytosis with mild dehydration secondary to poor outpatient pain control with oral medications for T6 compression fracture. T6 compression fracture with severe pain. Placed in observation bed overnight, pain persisting despite oral medications. She took 2 Percocet and still having 10 out of 10 pain as documented in the nursing notes. Will start patient on as needed Dilaudid. With her COPD and chronic hypoxic respiratory failure she will require intensive monitoring for both hypoxia and hypotension, patient high risk for hypoxia to with IV narcotics but failing oral therapy. Unable to use NSAIDs secondary to hives related to aspirin. Will try 1 dose of Decadron for pain control. PT to work with patient today. Suspect will need rehab but will need to be off of IV pain medications Mild dehydration with concentrated urinalysis. Watch p.o. intake Uncontrolled hypertension-improved this morning Leukocytosis on admission-no other infectious etiology and is returned to normal today. Repeat in a.m. Chronic hypoxic respiratory failure secondary to COPD and recent pneumonia- patient high risk for hypoxia with pain control as outlined above, continuous cardiac monitoring continuous pulse oximetry Insomnia-continue with home medications Admission status: Initially placed in observation, she was given oral pain medications. Oral pain medications have not really solved her pain at all. She still 10 out of 10 pain 2 hours after taking 10 [address] of [address]. Place patient on Dilaudid as needed every 3 hours. She will need intensive cardiac and pulse oximetry monitoring secondary to her chronic hypoxic respiratory failure secondary to COPD placing her at high risk for acute hypoxia. Feeling the observational time. Requiring IV pain medications will change patient to inpatient status as medically necessary treatment, IV pain medications, will span 2 midnights. Urinary Catheter Management Urinary Catheter Management Pure Wick: Cath placed during this visit: yes Urethral indwelling: No Insertion date: 10/07/24 Insertion time: 15:15
[2024-10-08] MEDS: PREGABALIN 75 MG CAPSULE PO (09:38)
[2024-10-08] MEDS: CHOLECALCIFEROL (VITAMIN D3) 25 MCG/1,000 UNITS TABLET 50 MCG PO (09:38)
[2024-10-08] MEDS: SENNOSIDES/DOCUSATE SODIUM 1 TAB TABLET PO (09:38)
[2024-10-08] MEDS: CALCITONIN,SALMON,SYNTHETIC 30 SPRAY/3.7 ML BOTTLE NS (09:41)
--- NOTE | 2024-10-08 10:08 | REH.PTDLY ---
Physical Therapy Daily Note PT Daily Note/Assess Start: 10/07/24 10:57 Freq: Status: Active Protocol: Document 10/08/24 09:00 PATRICIAIDA (Rec: 10[facility]08/24 10:08 [id number] Physical Therapy Daily Note/Assessment Time In 08:30 Time Out 08:57 Subjective Pt asleep upon arrival, pt does wake up and is agreeable to PT. Denies any pain at this time. Therapeutic Exercise 8 Minutes (minutes) Therapeutic Exercise 1 Units Therapeutic Exercise Instructed in B LE seated exs in chair 10x ea AP, LAQ, Treatment marching, hip abd, and hip add squeeze for improved strength for ease of transfers and gait. Therapeutic Activity 15 Minutes (minutes) Therapeutic Activity 1 Units Therapeutic Activity Supine to sit transfers with cues for pt to push off of Comments R arm and use bed rail. Pt able to sit up from bed with Min A. Sit to stand transfers CGA. Pt stands for 2 mins while brief is donned, needs assistance with this . Pt ambulates 4 feet to chair and sits down to perform exs. Pt then performs 3 sit to stand transfers in a row with cues for hand placement for safety. Gait training with RW CGA 60 feet with pt currently wearing 2 L of O2 on wall, however pt states she wears 3 L at home. SpO2 drops to 86%, but rises to 92% quickly once sitting. Pt is congested and coughing today during rx. Pt returns to chair with chair alarm on for safety. Total Therapy 23 Minutes Total Physical 2 Therapy Units Daily Note Summary Pt is much improved today with pain control. Denies pain during rx. Pt does well with transfers. Gait distance improved from previous date as well. Pt would be safe to go home with HH as pt states she lives with daughter and granddaughter, so someone is always with her. She also states she goes to an adult daycare during the day sometimes.
--- NOTE | 2024-10-08 10:26 | P.DS_ITS ---
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 Routine Reason for consult:: Advanced Directives 10/07/24 09:00 Occupational Therapy Eval and Treat Routine Reason for consultation: Fall; T6 compression fx; back pain Has provider been notified: No Physical Therapy Eval and Treat Routine Reason for consultation: Fall; T6 compression Fx; back pain Has provider been notified: No 10/08/24 08:54 Physical Therapy Eval and Treat Routine Reason for consultation: needs to ambulate DS: Diagnosis Discharge Diagnosis (1) Compression fracture: (2) Back pain: Qualifiers: Back pain laterality: left Back pain location: thoracic back pain Chronicity: acute Qualified Code(s): M54.6 - Pain in thoracic spine (3) Strain of lumbar region: (4) Dyspnea: (5) Chronic respiratory failure with hypoxia: (6) ARMAND (obstructive sleep apnea): (7) COPD (chronic obstructive pulmonary disease): (8) HTN (hypertension): Qualifiers: Hypertension type: primary hypertension Qualified Code(s): I10 - Essential (primary) hypertension Plan Admission findings: Uncontrolled hypertension, sinus tachycardia, leukocytosis with mild dehydration secondary to poor outpatient pain control with oral medications for T6 compression fracture. T6 compression fracture with severe pain. Placed in observation bed overnight, pain persisting despite oral medications. She took 2 Percocet and still having 10 out of 10 pain as documented in the nursing notes. Will start patient on as needed Dilaudid. With her COPD and chronic hypoxic respiratory failure she will require intensive monitoring for both hypoxia and hypotension, patient high risk for hypoxia to with IV narcotics but failing oral therapy. Unable to use NSAIDs secondary to hives related to aspirin. Will try 1 dose of Decadron for pain control. PT to work with patient today. Suspect will need rehab but will need to be off of IV pain medications Mild dehydration with concentrated urinalysis. Watch p.o. intake Uncontrolled hypertension-improved this morning Leukocytosis on admission-no other infectious etiology and is returned to normal today. Repeat in a.m. Chronic hypoxic respiratory failure secondary to COPD and recent pneumonia- patient high risk for hypoxia with pain control as outlined above, continuous cardiac monitoring continuous pulse oximetry Insomnia-continue with home medications Admission status: Initially placed in observation, she was given oral pain medications. Oral pain medications have not really solved her pain at all. She still 10 out of 10 pain 2 hours after taking [address] patient on Dilaudid as needed every 3 hours. She will need intensive cardiac and pulse oximetry monitoring secondary to her chronic hypoxic respiratory failure secondary to COPD placing her at high risk for acute hypoxia. Feeling the observational time. Requiring IV pain medications will change patient to inpatient status as medically necessary treatment, IV pain medications, will span 2 midnights. DS: Summary Hospital Course Hospital Course: Patient with a fall approximately a week prior to admission, has a T6 fracture, unable to manage the pain at home with oral pain medications. She was admitted, placed on oral pain medications and then IV pain medications she was also given doses of steroids. She has a history of chronic hypoxic respiratory failure resulting from pneumonia and COPD requiring home supplemental oxygen of 3 to 4 L. With the pulmonary risk she was changed from observation inpatient status is intensive monitoring was required while she was receiving IV pain medications. She received 3 doses of IV pain medication yesterday. So far seems like after the steroid she is improved to the point that she has less pain, able to sit up in bed on her own currently she did ambulate with a walker with no assistance. But the much improvement from yesterday she could not ambulate. With her ability to ambulate today, pain much better controlled with no further IV narcotics within the last 9 hours, will discharge patient to home in improving condition. Medications see list. Follow-up with PCP within the next week. Time Spent with Patient Time attestation: Total time spent providing and/or coordinating discharge services: Exam Constitutional Vital Signs, click to edit/add: Last Vital Signs Temp 97.8 F 10/08/24 08:54 Pulse 102 H 10/08/24 10:00 Resp 18 10/08/24 08:54 BP 145/75 H 10/08/24 08:54 Pulse Ox 96 10/08/24 08:54 O2 Del Method Nasal Cannula 10/08/24 08:54 O2 Flow Rate 3 10/08/24 08:54 Neck & C-Spine Common normals: full ROM, no lymphadenopathy and supple Cervical spine: cervical ROM normal Lymph Lymphatic: no lymphadenopathy noted Chest Common normals: inspection of chest normal Other: Much less tenderness over the thoracic area and spinal area Respiratory Common normals: normal respiratory effort and no retractions GI Common normals: Normal to inspection, nondistended, normoactive bowel sounds present Extremity Common normals: normal to inspection and full ROM Neuro Other: see PT notes for strength DS: Data Data Completed and Pending Labs on day of discharge: Labs from last 24 hours 10/08/24 05:25 Sodium 148 H Potassium 3.9 Chloride 107 Carbon Dioxide 33.3 H Anion Gap 11.6 BUN 14.0 Creatinine 1.07 H Est GFR ( Amer) >60 Est GFR (Non-Af Amer) 50 L BUN/Creatinine Ratio 13.1 Glucose 162 H Calcium 8.6 Discharge Plan Discharge Disposition: Home Health Service Condition: Fair Discharge Medications: New calcitonin (salmon) 200 unit/actuation [place],Non-Aerosol 1 spray intranasal QD Qty: 3.7 11RF prednisone 10 mg tablet 40 mg PO DAILY Qty: 32 0RF Rx Instructions: 4/day for 3 days, 3/day for 3 days, 2/day for 3 days, 1/day for 3 days, 1/2 /day for 4 days Continued albuterol sulfate 90 mcg/actuation HFA aerosol inhaler 2 puff INHALATION Q4H PRN (Reason: shortness of breath or wheezing) pregabalin 75 mg capsule 75 mg PO BID cholecalciferol (vitamin D3) 50 mcg (2,000 unit) tablet 50 mcg PO DAILY melatonin 5 mg tablet 5 mg PO QPM polyethylene glycol 3350 [Miralax] 17 gram/dose powder 17 g PO DAILY PRN (Reason: constipation) Qty: 510 0RF Trelegy Ellipta 100-62.5-25 mcg blister with device 1 inh INHALATION QAM oxycodone-acetaminophen [Percocet] 5-325 mg tablet 1 tab PO Q6H PRN (Reason: pain) 3 Days Qty: 10 0RF Print Language: French Forms: Portal Instructions Follow Up Appointments: Chad Francis., at 2:30pm [address], [place], [place] [phone]
[2024-10-08] MEDS: BUDESONIDE 0.5 MG/2 ML AMPULE NEB IH (11:08)
--- NOTE | 2024-10-08 11:25 | SWNOTE1 ---
Pt worked with PT today and HH is still recommended. Pt will return home with home health and resume her [facility]. SW to send orders.
[2024-10-08] MEDS: ACETAMINOPHEN 325 MG TABLET 650 MG PO (12:02)
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
--- NOTE | 2024-10-08 14:15 | SWNOTE1 ---
JULIAN faxed over CRF, dc med rec, dc summary, and PT/OT from today.
--- NOTE | 2024-10-08 14:16 | SWNOTE1 ---
All dc information sent to [address]
--- NOTE | 2024-10-09 11:49 | CM.DCFOLLOWU ---
1st attempt 10/09/24, busy
--- NOTE | 2024-10-09 11:50 | CM.DCFOLLOWU ---
1st attempt 10/09/24, busy
--- NOTE | 2024-10-12 09:24 | SWNOTE1 ---
Briseyda from [facility] called to check when pt was discharged and where she discharged. JULIAN sent over dc summary to [facility] and let them know she returned home with [facility].
--- NOTE | 2024-10-12 13:09 | CM.DCFOLLOWU ---
2nd attempt 10/12/24, busy
--- NOTE | 2024-10-13 14:31 | CM.DCFOLLOWU ---
Readmitted to Hospital
== END 2024-10-08 14:52 | disposition home health service (06) | DRG 552 ==
LOC: ER 20:43 → ICU 21:13 → MS 10-07 05:58
PROVIDERS: Registered Nurse; Admitting Provider Family Medicine; Emergency Provider Emergency Medicine; PCP Internal Medicine; Visit Provider Family Medicine
DX: M54.6 Pain in thoracic spine (principal); S22.058A Other fracture of T5-T6 vertebra, initial encounter for closed fracture; J96.11 Chronic respiratory failure with hypoxia; D72.829 Elevated white blood cell count, unspecified; E86.0 Dehydration; G47.00 Insomnia, unspecified; G47.33 Obstructive sleep apnea (adult) (pediatric); I10 Essential (primary) hypertension; J44.9 Chronic obstructive pulmonary disease, unspecified; S39.012A Strain of muscle, fascia and tendon of lower back, initial encounter; W19.XXXA Unspecified fall, initial encounter; Z99.81 Dependence on supplemental oxygen; Z79.51 Long term (current) use of inhaled steroids; Z79.52 Long term (current) use of systemic steroids; Z79.899 Other long term (current) drug therapy; Z88.6 Allergy status to analgesic agent; Z87.891 Personal history of nicotine dependence
CPT/HCPCS: 36415; 71250; 80048; 80053; 81001; 83735; 85025; 85027; 87086; 87186; 94640; 94667; 94668; 94761; 96372; 96374; 96375; 96376; 97110; 97162; 97165; 97530; 97535; 99285; G0378; J1100; J1171; J2270; J2405

== ENCOUNTER 2024-10-12 18:52 | Inpatient (IN) | payer MEDICARE, MEDICAID, SELFPAY ==
[2024-10-12] VITALS (36 sets, daily range): BP systolic 144–226; BP diastolic 89–140; PULSE 84–107; RESP 16; TEMP 36.6; O2SAT 93–98
--- NOTE | 2024-10-12 18:58 | XR_ITS ---
The [address] [address] Patient Name: GERA PERDUE MRN: [id number] date: 1945 Sex: F Assigned Patient Location: ER Current Patient Location: ED.MAIN Accession/Order Number: [id number] Exam Date: 10/12/2024 19:40 Report Date: 10/12/2024 21:41 At the request of: TEO BENTLEY Procedure: XR chest 1V EXAMINATION: XR chest 1V, , 10/12/2024 7:40 PM EST INDICATION: SOB HISTORY: Ordering Provider Reason for Exam: SOB Technologist Note: Additional: COMPARISON: None. TECHNIQUE: Chest x-ray: One view. FINDINGS: No pneumothorax, pleural effusion or focal airspace consolidation. Heart is normal in size. Bony thorax is unremarkable. XR/XR chest 1V IMPRESSION: No acute cardiopulmonary process. Electronically authenticated by: ZACK LARSON Date: 10/12/2024 21:41
--- NOTE | 2024-10-12 18:58 | ECG_ITS ---
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
--- NOTE | 2024-10-12 18:59 | ED_ITS ---
Documented by User: Teo Bentley 10/12/24 21:51 HPI - SOB/Dyspnea General Chief Complaint: Shortness of Breath/Dyspnea Stated Complaint: SOB Time Seen by Provider: 10/12/24 18:58 History of Present Illness HPI Narrative: 78 year old female presents to the ED for SOB. Onset was 0500 this morning. Reports fever, chills, cough. Denies N/V/D, CP, dizziness, leg swelling. Reports ill contacts. Reports hx COPD. Denies hx CHF. Reports a cardiac stent. Pt's oxyg en saturation was in the 80s upon EMS arrival to her residence. Pt was placed on CPAP per EMS with improvement. She was transferred to [facility] upon arrival here. EMS gave 125 mg solu-medrol IV. Pt wears [place] oxygen at 3L at home. Related Data Home Medications ?Medication ?Instructions ?Recorded ?Confirmed albuterol sulfate 90 mcg/actuation 2 puff inhalation Q4H PRN 08/28/23 10/06/24 aerosol inhaler shortness of breath or wheezing cholecalciferol (vitamin D3) 50 50 mcg PO DAILY 08/28/23 10/06/24 mcg (2,000 unit) tablet pregabalin 75 mg capsule 75 mg PO BID 08/28/23 10/06/24 melatonin 5 mg tablet 5 mg PO QPM 08/14/24 10/06/24 fluticasone fur. 100 mcg-umeclid 1 inh inhalation QAM 09/19/24 10/06/24 62.5 mcg-vilant 25 mcg inhalat.powder (Trelegy Ellipta) Previous Rx's ?Medication ?Instructions ?Recorded polyethylene glycol 3350 17 17 g PO DAILY PRN constipation 10/01/24 gram/dose oral powder (Miralax) #510 grams oxycodone-acetaminophen 5 mg-325 1 tab PO Q6H PRN pain 3 days #10 10/03/24 mg tablet (Percocet) tabs calcitonin (salmon) 200 1 spray intranasal QD #3.7 mL 10/08/24 unit/actuation nasal spray prednisone 10 mg tablet 40 mg (4 x 10 mg) PO DAILY #32 tabs 10/08/24 Allergies Allergy/AdvReac Type Severity Reaction Status Date / Time aspirin Allergy Severe Hives Verified 10/03/24 15:37 Review of Systems ROS Constitutional Reports: fever and chills Ears, nose, mouth, and throat Denies: throat pain, neck pain, ear pain, ear discharge, nasal discharge or nasal congestion Cardiovascular Denies: chest pain, palpitations, edema or swelling of feet/ankles Respiratory Reports: shortness of breath and cough Gastrointestinal Denies: abdominal pain, nausea, vomiting or diarrhea Integumentary/Breast Denies: rash Neurological Denies: headache PFSH PFSH Medical History Elevated d-dimer ?R79.89 - Other specified abnormal findings of blood chemistry (ICD-10) Pneumonia ?J18.9 - Pneumonia, unspecified organism (ICD-10) Chronic respiratory failure with hypoxia ?J96.11 - Chronic respiratory failure with hypoxia (ICD-10) Anemia ?D64.9 - Anemia, unspecified (ICD-10) HLD (hyperlipidemia) ?E78.5 - Hyperlipidemia, unspecified (ICD-10) ARMAND (obstructive sleep apnea) ?G47.33 - Obstructive sleep apnea (adult) (pediatric) (ICD-10) COPD (chronic obstructive pulmonary disease) ?J44.9 - Chronic obstructive pulmonary disease, unspecified (ICD-10) HTN (hypertension) ?I10 - Essential (primary) hypertension (ICD-10) Surgical History History of colon surgery ?Z98.890 - Other specified postprocedural states (ICD-10) Family History Grandmother Family history of CHF (congestive heart failure) Family history of cancer Family history of hypertension Family history of myocardial infarction Mother Family history of CHF (congestive heart failure) Family history of cancer Family history of hypertension Family history of myocardial infarction Uncle Family history of COPD (chronic obstructive pulmonary disease) Aunt Family history of cancer Social History Within the past year, how often did you have a drink containing alcohol: never Within the past year, how often did you have six or more drinks on one occasion: never Score interpretation: A score less than 3 is consistent with normal alcohol consumption. 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 level of school completed/degree received: 11th grade Are you now , , , , never or living with a partner: In a typical week, how many times do you talk on the telephone with family, friends, or neighbors: 3 or more times per week How often do you get together with friends or relatives: 3 or more times per week How often do you attend latter day or bahai services: 1-3 times per year Do you belong to any clubs or organizations such as latter day groups unions, [place] or athletic groups, or school groups: yes Total score: 2 Score interpretation: A score of greater than or equal to 2 indicates the lowest level of social isolation. Little interest or pleasure in doing things: several days Feeling down, depressed, or hopeless: several days Feel stressed/tense/nervous/anxious/difficulty sleeping: to some extent Do you think of yourself as: decline to answer Gender Identity: female Exam Constitutional Vital Signs, click to edit/add: Last Vital Signs Temp 97.5 F L 10/13/24 00:00 Pulse 87 10/13/24 04:31 Resp 18 10/13/24 04:31 BP 167/91 H 10/13/24 00:00 Pulse Ox 97 10/13/24 04:31 O2 Del Method Nasal Cannula 10/13/24 04:31 O2 Flow Rate 3 10/13/24 04:31 FiO2 25 10/12/24 20:01 Common normals: oriented x3 and alert General appearance: cooperative HENMT Common normals: external ears normal, external nose normal and moist oral mucous membranes Throat: posterior oropharynx normal Eye Common normals: PERRL and conjunctivae normal Neck & C-Spine Common normals: supple Chest Chest: symmetrical chest wall rise Respiratory Effort & inspection: labored; no stridor Auscultation: diminished lung sounds Cardio Common normals: regular rate and regular rhythm GI Common normals: Normal to inspection, nondistended, normoactive bowel sounds present, soft to palpation and non-tender Extremity Common normals: normal capillary refill and no pedal edema Neuro Common normals: oriented x3 and moves all extremities Sensorium/orientation: awake and alert Course Vital Signs Vital signs: Vital Signs Temperature 97.9 F 10/12/24 18:54 Pulse Rate 106 H 10/12/24 18:54 Respiratory Rate 18 10/12/24 18:54 Blood Pressure 226/112 H 10/12/24 18:54 Pulse Oximetry 97 10/12/24 18:54 Oxygen Delivery Method CPAP 10/12/24 18:54 Temperature 97.5 F L 10/13/24 00:00 Pulse Rate 87 10/13/24 04:31 Respiratory Rate 18 10/13/24 04:31 Blood Pressure 167/91 H 10/13/24 00:00 Pulse Oximetry 97 10/13/24 04:31 Oxygen Delivery Method Nasal Cannula 10/13/24 04:31 Oxygen Delivery Flow Rate 3 10/13/24 04:31 Fraction of Inspired Oxygen 25 10/12/24 20:01 MDM - SOB/Dyspnea MDM Narrative Medical decision making narrative: Pt presented to the ED for SOB. She was on BIPAP here in the ED. WBC count was 11. Covid-19 and influenza were negative. BNP was 1663; it was 722 on 08/14/24. Pt was given solu-medrol 125 mg per EMS. Pt has hx COPD. She will be admitted for further evaluation and treatment. I spike with Lynette MARQUEZ who accepted the patient for admission on behalf of Dr. Plascencia. The patient was given IV hydralazine for her blood pressure and IV Lasix here in the ED. Differential Diagnosis Differential diagnosis: Likely acute exacerbation of chronic obstructive airways disease, congestive heart failure, community acquired pneumonia and asthma with exacerbation Medical Records Attestation: I reviewed the patient's medical records. Lab Data Attestation: I reviewed the patient's lab results. Labs: Lab Results 10/12/24 10/12/24 10/12/24 Range/Units 17:14 19:10 19:15 WBC 11.0 (4.0-11.0) 10^3/uL RBC 4.79 (4.20-5.40) 10^6/uL Hgb 11.7 L (12.0-16.0) g/dL Hct 38.8 (36.0-48.0) % MCV 81.0 (81.0-99.0) fL MCH 24.4 L (26.7-34.0) pg MCHC 30.2 (29.9-35.2) g/dL RDW 22.4 H (11.0-15.0) % Plt Count 373 (150-450) 10^3/uL MPV 8.2 L (9.5-13.5) fL Neut % (Auto) 80.9 H (43.0-75.0) % Lymph % (Auto) 13.3 L (20.5-60.0) % Evangeline % (Auto) 5.2 (1.7-12.0) % Eos % (Auto) 0.1 L (0.9-7.0) % Baso % (Auto) 0.1 L (0.2-2.0) % Neut # (Auto) 8.9 H (1.4-6.5) 10^3/uL Lymph # (Auto) 1.5 (1.2-3.8) 10^3/uL Evangeline # (Auto) 0.6 (0.3-0.8) 10^3/uL Eos # (Auto) 0.0 (0.0-0.7) 10^3/uL Baso # (Auto) 0.0 (0.0-0.1) 10^3/uL Abs Immat Gran (auto) 0.04 H (0.00-0.03) 10^3/uL Imm/Tot Granulo (auto) 0.4 (0.0-0.5) % PT 10.4 (9.0-11.6) sec INR 0.98 APTT 24.9 (22.3-36.2) sec Puncture Site Right radial ABG pH 7.417 (7.350-7.450) ABG pCO2 48.8 H (35.0-45.0) mmHg ABG pO2 123.0 H (80.0-100.0) mmHg ABG HCO3 31.4 H (22.0-26.0) mmol/L ABG O2 Saturation 97.7 % ABG Base Excess 6.9 H (-2.0-2.0) mmol/L Brenton Test Positive (POSITIVE) FiO2 35 % BiPAP 14/7 Sodium 143 (136-145) mmol/L Potassium 4.3 (3.5-5.1) mmol/L Chloride 103 (98-107) mmol/L Carbon Dioxide 31.4 (21.0-32.0) mmol/L Anion Gap 12.9 BUN 21.0 H (7.0-18.0) mg/dL Creatinine 1.00 (0.55-1.02) mg/dL Est GFR ( Amer) >60 (>=60 mL/min/1.73m^2) Est GFR (Non-Af Amer) 54 L (>=60 mL/min/1.73m^2) BUN/Creatinine Ratio 21.0 Glucose 164 H (74-106) mg/dL Calcium 9.5 (8.5-10.1) mg/dL Total Bilirubin 0.3 (0.2-1.0) mg/dL AST 13 L (15-37) U/L ALT 22 (14-59) U/L Alkaline Phosphatase 113 (46-116) U/L Troponin I High Sens 41.1 (4.0-51.3) pg/mL NT-Pro-B Natriuret Pep 1663.0 (<=1800.0) pg/mL Total Protein 7.9 (6.4-8.2) g/dL Albumin 3.3 L (3.4-5.0) g/dL Globulin 4.6 g/dL Albumin/Globulin Ratio 0.7 Influenza Type A Ag Negative Influenza Type B Ag Negative SARS-CoV-2 Ag (CV2AG) Negative (NEGATIVE) Imaging Data Chest x-ray: Attestation: I have reviewed the pertinent imaging results. Radiologist's impression: ITS Impressions Chest X-Ray 10/12/24 18:58 IMPRESSION: No acute cardiopulmonary process. Electronically authenticated by: ZACK LARSON Date: 10/12/2024 21:41 ECG Data Attestation: ?I have reviewed the pertinent ECG results. Interpretation: Measurements Intervals [place] Rate: 106 P: 70 PA: 148 QRS: 61 QRSD: 74 T: 50 QT: 318 QTc: 380 Interpretive Statements 1120 Sinus tachycardia 9140 abnormal rhythm ECG No previous ECG available for comparison Critical Care Time Critical Care Time Critical Care Time: Yes Total Critical Care Time: 35 Attestation: Due to the high probability of sudden and clinically significant deterioration in the patient's condition she required the highest level of my preparedness to intervene urgently I provided critical care time including documentation time, medication orders and management, reevaluation, vital sign assessment, ordering and reviewing of lab tests, ordering and reviewing of x-ray studies, and admission orders. Discharge Plan Discharge Chief Complaint: Shortness of Breath/Dyspnea Clinical Impression: COPD with acute exacerbation Patient Disposition: Admitted As Inpatient Time of Disposition Decision: 21:42 Condition: Good Discharge Date/Time: 10/12/24 23:49 Documented by User: Jackie Luna MD 10/13/24 05:10 HPI - SOB/Dyspnea General Chief Complaint: Shortness of Breath/Dyspnea Stated Complaint: SOB Time Seen by Provider: 10/12/24 18:58 Related Data Home Medications ?Medication ?Instructions ?Recorded ?Confirmed albuterol sulfate 90 mcg/actuation 2 puff inhalation Q4H PRN 08/28/23 10/06/24 aerosol inhaler shortness of breath or wheezing cholecalciferol (vitamin D3) 50 50 mcg PO DAILY 08/28/23 10/06/24 mcg (2,000 unit) tablet pregabalin 75 mg capsule 75 mg PO BID 08/28/23 10/06/24 melatonin 5 mg tablet 5 mg PO QPM 08/14/24 10/06/24 fluticasone fur. 100 mcg-umeclid 1 inh inhalation QAM 09/19/24 10/06/24 62.5 mcg-vilant 25 mcg inhalat.powder (Trelegy Ellipta) Previous Rx's ?Medication ?Instructions ?Recorded polyethylene glycol 3350 17 17 g PO DAILY PRN constipation 10/01/24 gram/dose oral powder (Miralax) #510 grams oxycodone-acetaminophen 5 mg-325 1 tab PO Q6H PRN pain 3 days #10 10/03/24 mg tablet (Percocet) tabs calcitonin (salmon) 200 1 spray intranasal QD #3.7 mL 10/08/24 unit/actuation nasal spray prednisone 10 mg tablet 40 mg (4 x 10 mg) PO DAILY #32 tabs 10/08/24 Allergies Allergy/AdvReac Type Severity Reaction Status Date / Time aspirin Allergy Severe Hives Verified 10/03/24 15:37 PFSH PFSH Medical History Elevated d-dimer ?R79.89 - Other specified abnormal findings of blood chemistry (ICD-10) Pneumonia ?J18.9 - Pneumonia, unspecified organism (ICD-10) Chronic respiratory failure with hypoxia ?J96.11 - Chronic respiratory failure with hypoxia (ICD-10) Anemia ?D64.9 - Anemia, unspecified (ICD-10) HLD (hyperlipidemia) ?E78.5 - Hyperlipidemia, unspecified (ICD-10) ARMAND (obstructive sleep apnea) ?G47.33 - Obstructive sleep apnea (adult) (pediatric) (ICD-10) COPD (chronic obstructive pulmonary disease) ?J44.9 - Chronic obstructive pulmonary disease, unspecified (ICD-10) HTN (hypertension) ?I10 - Essential (primary) hypertension (ICD-10) Surgical History History of colon surgery ?Z98.890 - Other specified postprocedural states (ICD-10) Family History Grandmother Family history of CHF (congestive heart failure) Family history of cancer Family history of hypertension Family history of myocardial infarction Mother Family history of CHF (congestive heart failure) Family history of cancer Family history of hypertension Family history of myocardial infarction Uncle Family history of COPD (chronic obstructive pulmonary disease) Aunt Family history of cancer Social History Within the past year, how often did you have a drink containing alcohol: never Within the past year, how often did you have six or more drinks on one occasion: never Score interpretation: A score less than 3 is consistent with normal alcohol consumption. 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 level of school completed/degree received: 11th grade Are you now , , , , never or living with a partner: In a typical week, how many times do you talk on the telephone with family, friends, or neighbors: 3 or more times per week How often do you get together with friends or relatives: 3 or more times per week How often do you attend latter day or bahai services: 1-3 times per year Do you belong to any clubs or organizations such as latter day groups unions, [employer] or athletic groups, or school groups: yes Total score: 2 Score interpretation: A score of greater than or equal to 2 indicates the lowest level of social isolation. Little interest or pleasure in doing things: several days Feeling down, depressed, or hopeless: several days Feel stressed/tense/nervous/anxious/difficulty sleeping: to some extent Do you think of yourself as: decline to answer Gender Identity: female Exam Constitutional Vital Signs, click to edit/add: Last Vital Signs Temp 97.5 F L 10/13/24 00:00 Pulse 87 10/13/24 04:31 Resp 18 10/13/24 04:31 BP 167/91 H 10/13/24 00:00 Pulse Ox 97 10/13/24 04:31 O2 Del Method Nasal Cannula 10/13/24 04:31 O2 Flow Rate 3 10/13/24 04:31 FiO2 25 10/12/24 20:01 Course Vital Signs Vital signs: Vital Signs Temperature 97.9 F 10/12/24 18:54 Pulse Rate 106 H 10/12/24 18:54 Respiratory Rate 18 10/12/24 18:54 Blood Pressure 226/112 H 10/12/24 18:54 Pulse Oximetry 97 10/12/24 18:54 Oxygen Delivery Method CPAP 10/12/24 18:54 Temperature 97.5 F L 10/13/24 00:00 Pulse Rate 87 10/13/24 04:31 Respiratory Rate 18 10/13/24 04:31 Blood Pressure 167/91 H 10/13/24 00:00 Pulse Oximetry 97 10/13/24 04:31 Oxygen Delivery Method Nasal Cannula 10/13/24 04:31 Oxygen Delivery Flow Rate 3 10/13/24 04:31 Fraction of Inspired Oxygen 25 10/12/24 20:01 MDM - SOB/Dyspnea MDM Narrative Medical decision making narrative: Pt presented to the ED for SOB. She was on BIPAP here in the ED. WBC count was 11. Covid-19 and influenza were negative. BNP was 1663; it was 722 on 08/14/24. Pt was given solu-medrol 125 mg per EMS. Pt has hx COPD. She will be admitted for further evaluation and treatment. I spike with Lynette MARQUEZ who accepted the patient for admission on behalf of Dr. Plascencia. The patient was given IV hydralazine for her blood pressure and IV Lasix here in the ED. 78-year-old female with a history of COPD was seen and evaluated in conjunction with the nurse practitioner. Please refer to her H&P. She was seen and evaluated by myself. Upon arrival she was noted to be hypoxic and was placed on BiPAP. Cardiac workup was ordered. She has a normal EKG. Normal white count. BNP was elevated at 1663. She was given Solu-Medrol and Lasix as well as hydralazine for elevated blood pressure. X-ray does not show any acute heart failure or pneumonia. She responded well to the BiPAP and was taken off the BiPAP and placed on a nasal cannula prior to being transferred to the ICU. She was medicated for chronic back/neck pain with 4 mg of morphine and Zofran prior to being transferred to the ICU. She remained hemodynamically stable while in the emergency department. Medical Records Medical records narrative: The [address] [address] XRay Report Signed Patient: GERA PERDUE MR#: [id number] : 1945 Acct:[id number] Age/Sex: 78 / F ADM Date: 10/12/24 Loc: ER Attending Dr: Ordering Physician: Toe Bentley Date of Service: 10/12/24 Procedure(s): XR chest 1V Accession Number(s): [id number] cc: AMOS SALAS ; Teo Bentley~ The [address] [id number] Patient Name: GERA PERDUE MRN: [id number] date: 1945 Sex: F Assigned Patient Location: ER Current Patient Location: ED.MAIN Accession/Order Number: [id number] Exam Date: 10/12/2024 19:40 Report Date: 10/12/2024 21:41 At the request of: TEO BENTLEY Procedure: XR chest 1V EXAMINATION: XR chest 1V, , 10/12/2024 7:40 PM EST INDICATION: SOB HISTORY: Ordering Provider Reason for Exam: SOB Technologist Note: Additional: COMPARISON: None. TECHNIQUE: Chest x-ray: One view. FINDINGS: No pneumothorax, pleural effusion or focal airspace consolidation. Heart is normal in size. Bony thorax is unremarkable. XR/XR chest 1V IMPRESSION: No acute cardiopulmonary process. Electronically authenticated by: ZACK LARSON Date: 10/12/2024 21:41 Lab Data Labs: Lab Results 10/12/24 10/12/24 10/12/24 Range/Units 17:14 19:10 19:15 WBC 11.0 (4.0-11.0) 10^3/uL RBC 4.79 (4.20-5.40) 10^6/uL Hgb 11.7 L (12.0-16.0) g/dL Hct 38.8 (36.0-48.0) % MCV 81.0 (81.0-99.0) fL MCH 24.4 L (26.7-34.0) pg MCHC 30.2 (29.9-35.2) g/dL RDW 22.4 H (11.0-15.0) % Plt Count 373 (150-450) 10^3/uL MPV 8.2 L (9.5-13.5) fL Neut % (Auto) 80.9 H (43.0-75.0) % Lymph % (Auto) 13.3 L (20.5-60.0) % Evangeline % (Auto) 5.2 (1.7-12.0) % Eos % (Auto) 0.1 L (0.9-7.0) % Baso % (Auto) 0.1 L (0.2-2.0) % Neut # (Auto) 8.9 H (1.4-6.5) 10^3/uL Lymph # (Auto) 1.5 (1.2-3.8) 10^3/uL Evangeline # (Auto) 0.6 (0.3-0.8) 10^3/uL Eos # (Auto) 0.0 (0.0-0.7) 10^3/uL Baso # (Auto) 0.0 (0.0-0.1) 10^3/uL Abs Immat Gran (auto) 0.04 H (0.00-0.03) 10^3/uL Imm/Tot Granulo (auto) 0.4 (0.0-0.5) % PT 10.4 (9.0-11.6) sec INR 0.98 APTT 24.9 (22.3-36.2) sec Puncture Site Right radial ABG pH 7.417 (7.350-7.450) ABG pCO2 48.8 H (35.0-45.0) mmHg ABG pO2 123.0 H (80.0-100.0) mmHg ABG HCO3 31.4 H (22.0-26.0) mmol/L ABG O2 Saturation 97.7 % ABG Base Excess 6.9 H (-2.0-2.0) mmol/L Brenton Test Positive (POSITIVE) FiO2 35 % BiPAP 147 Sodium 143 (136-145) mmol/L Potassium 4.3 (3.5-5.1) mmol/L Chloride 103 (98-107) mmol/L Carbon Dioxide 31.4 (21.0-32.0) mmol/L Anion Gap 12.9 BUN 21.0 H (7.0-18.0) mg/dL Creatinine 1.00 (0.55-1.02) mg/dL Est GFR ( Amer) >60 (>=60 mL/min/1.73m^2) Est GFR (Non-Af Amer) 54 L (>=60 mL/min/1.73m^2) BUN/Creatinine Ratio 21.0 Glucose 164 H (74-106) mg/dL Calcium 9.5 (8.5-10.1) mg/dL Total Bilirubin 0.3 (0.2-1.0) mg/dL AST 13 L (15-37) U/L ALT 22 (14-59) U/L Alkaline Phosphatase 113 (46-116) U/L Troponin I High Sens 41.1 (4.0-51.3) pg/mL NT-Pro-B Natriuret Pep 1663.0 (<=1800.0) pg/mL Total Protein 7.9 (6.4-8.2) g/dL Albumin 3.3 L (3.4-5.0) g/dL Globulin 4.6 g/dL Albumin/Globulin Ratio 0.7 Influenza Type A Ag Negative Influenza Type B Ag Negative SARS-CoV-2 Ag (CV2AG) Negative (NEGATIVE) Imaging Data Chest x-ray: Radiologist's impression: ITS Impressions Chest X-Ray 10/12/24 18:58 IMPRESSION: No acute cardiopulmonary process. Electronically authenticated by: ZACK LARSON Date: 10/12/2024 21:41 Discharge Plan Discharge Chief Complaint: Shortness of Breath/Dyspnea Clinical Impression: COPD with acute exacerbation Patient Disposition: Admitted As Inpatient Time of Disposition Decision: 21:42 Condition: Good Discharge Date/Time: 10/12/24 23:49
[2024-10-12 19:18] LABS: Basophils Percent Auto 0.1 % (0.2-2.0); Eosinophils Percent Auto 0.1 % (0.9-7.0); Hematocrit 38.8 % (36.0-48.0); Hemoglobin 11.7 g/dL (12.0-16.0); Immature Granulocytes Abs Auto 0.04 10^3/uL (0.00-0.03); Immature Granulocytes Pct Auto 0.4 % (0.0-0.5); Lymphocytes Absolute Auto 1.5 10^3/uL (1.2-3.8); Lymphocytes Percent Auto 13.3 % (20.5-60.0); Mean Corpuscular HGB Conc 30.2 g/dL (29.9-35.2); Mean Corpuscular Hemoglobin 24.4 pg (26.7-34.0); Mean Platelet Volume 8.2 fL (9.5-13.5); Monocytes Absolute Auto 0.6 10^3/uL (0.3-0.8); Monocytes Percent Auto 5.2 % (1.7-12.0); Neutrophils Absolute Auto 8.9 10^3/uL (1.4-6.5); Neutrophils Percent Auto 80.9 % (43.0-75.0); Platelet Count 373 10^3/uL (150-450); Red Cell Distribution Width 22.4 % (11.0-15.0)
[2024-10-12 19:23] LABS: ABG PCO2 48.8 mmHg (35.0-45.0); Allen Test POSITIVE (POSITIVE); BIPAP Pressure 14/7; Base Excess ABG 6.9 mmol/L (-2.0-2.0); HCO3 ABG 31.4 mmol/L (22.0-26.0); O2 Mode BIPAP; Oxygen Saturation ABG 97.7 %; pH ABG 7.417 (7.350-7.450)
[2024-10-12 19:24] LABS: Fractionated Inspired Oxygen 35 %; Puncture Site RIGHT RADIAL
[2024-10-12 19:37] LABS: INR 0.98; Partial Thromboplastin Time 24.9 sec (22.3-36.2); Prothrombin Time 10.4 sec (9.0-11.6)
[2024-10-12 19:40] LABS: Alanine Aminotransferase 22 U/L (14-59); Albumin Globulin Ratio 0.7; Albumin Level 3.3 g/dL (3.4-5.0); Alkaline Phosphatase 113 U/L (46-116); Anion Gap 12.9; Aspartate Amino Transferase 13 U/L (15-37); Bilirubin Total 0.3 mg/dL (0.2-1.0); Calcium 9.5 mg/dL (8.5-10.1); Carbon Dioxide 31.4 mmol/L (21.0-32.0); Chloride 103 mmol/L (98-107); Estimated GFR (African America >60 (>=60 mL/min/1.73m^2); Estimated GFR (Non-African Ame 54 (>=60 mL/min/1.73m^2); Globulin 4.6 g/dL; Glucose 164 mg/dL (74-106); Potassium 4.3 mmol/L (3.5-5.1); Sodium 143 mmol/L (136-145); Total Protein 7.9 g/dL (6.4-8.2)
[2024-10-12 19:46] LABS: Troponin I High Sensitivity 41.1 pg/mL (4.0-51.3)
[2024-10-12 19:48] LABS: Red Blood Count 4.79 10^6/uL (4.20-5.40)
[2024-10-12 19:49] LABS: Influenza Virus A Antigen Negative; Influenza Virus B Antigen Negative; Internal Control Within Normal Limits; SARS-CoV-2 Ag NEGATIVE (NEGATIVE)
[2024-10-12] MEDS: HYDRALAZINE HCL 20 MG/ML VIAL 10 MG IVP (22:09)
[2024-10-12] MEDS: FUROSEMIDE 40 MG/4 ML VIAL IVP (22:09)
[2024-10-12] MEDS: MORPHINE SULFATE 4 MG/ML VIAL IV (22:33)
[2024-10-12] MEDS: ONDANSETRON PF 4 MG/2 ML VIAL IV (22:33)
--- OUTSIDE RECORDS SUMMARY | 2024-10-12 23:59 | XMS_ITS | CCD ---
Author Organization [facility] Care Team Providers Care Thread Inspector Name Role Phone Mely Camarillo Unavailable Unavailable CRYS BARBOZA Consulting Unavailable VERENICE CHILEL Admitting Unavailable ELLEN GONZALEZ Attending Unavailable GENERIC, PHYSICIAN Primary Care Unavailable JIMMY GUZMAN Referring Unavailable DANGELO LOZA Consulting U navailable Generic, Physician Primary Care Provider Unavail able Jorge A Jackson Unavailable Tanya Guerrero Unavailable DO Gustavo Salas Primary Care Provider [phone] DO Hilario Yeung Emergency Provider Unavai DO Gustavo Hernandez Primary Care Provider [phone] DO Richard Pearson Emergency Provider ETHAN Morrissey Emergency Provider [phone] MD Jolanta Mckenzie Admit Provider MD Jolanta Mckenzie Attending Provider MD Jesus Alberto Aquino Attending Provider Dr. Charlie Mondragon II Attending Unavailable LAKSHMIPATHY ., NARENDRANATH Admitting Sahra vailable LAKSHMIPATHY ., NARENDRANATH Attending Sahra vailable DR SVITLANA HAMMOND Primary Care Unavailable DO Gustavo Salas Primary Care Provider Karen SURGICAL ONCOLOGIST- Kadie Beckford Emergency Provider DO Marshall Dominguez Emergency Provider [phone] MD Jolanta Mckenzie Admit Provider MD Jolanta Mckenzie Attending Provider DO Maury Morrissey Emergency Provider MD Jesus Alberto Aquino Admit Provider MD Jesus Alberto Aquino Attending Provider [phone] Vonthron CRIMINAL DEFENSE ATTORNEY-CLAY DRY PRESS HELPER, Mely A Primary Care Provid er Gustavo Salas DO Primary Care Provider Aubrey METZ, Leah Unavailable Gustavo Salas DO Primary Care Provider [phone] GUSTAVO SALAS Primary Care Physician Unavail able DO Gustavo Salas Primary Care Provider MD Jenna Engle Attending Provider Karen [facility] Kadie Beckford Emergency Provider MD Lucho Grullon Admit Provider [phone] MD Lucho Grullon Attending Provider [phone] JENNA ENGLE Attending Unavailable MARITZA, GUSTAVO A Primary Care Unavailable JENNA ENGLE Attending Unavailable JENNA ENGLE Referring Unavailable MARITZA, GUSTAVO A Primary Care Unavailable MD Michoacano Mckenzie Attending Provider Renae Ponce Attending Unavailable MARITZA, GUSTAVO A Referring Unavailable Renae Ponce Attending Unavailable Renae Ponce Admitting Unavailable MARIELA, RABBIA L Referring Unavailable VONTHRON, MELY A Primary Care Unavailable MARIELA, RABBIA L Referring Unavailable VONTHRON, MELY A Primary Care Unavailable SHEILA BARRY Referring Unavailable VONTHRON, MELY A Primary Care Unavailable ANAHY BARGER Referring Unavailabl e VONTHRON, MELY A Primary Care Unavailable ANKUROUS, FRANCINE Viki Referring Unavailable VONTHRON, MELY A Primary Care Unavailable MAINOUS, FRANCINE M Referring Unavailable VONTHRON, MELY A Primary Care Unavailable ANA VELAZQUEZER Referring Unavailable VONTHRON, MELY A Primary Care Unavailable EWRY, CHRISTOPHER Referring Unavailable VONTHRON, MELY A Primary Care Unavailable CASE, NOE Durham Attending Unavailable CASE, NOE Durham Referring Unavailable VONTHRON, MELY A Primary Care Unavailable CASE, NOE Durham Attending Unavailable CASE, NOE Durham Referring Unavailable VONTHRON, MELY A Primary Care Unavailable MARKELL LIN Moody Referring Unavailable OOSTRA, CECELIA E Attending Unavailable OOSTRA, CECELIA E Referring Unavailable VONTHRON, MELY A Primary Care Unavailable OOSTRA, CECELIA E Attending Unavailable OOSTRA, CECELIA E Referring Unavailable VONTHRON, MELY A Primary Care Unavailable ASHLEY MOONEY Attending Unavailable ASHLEY MOONEY K Referring Unavailable VONTHRON, MELY A Primary [...] able VONTHRON, MELY A Primary Care Unavailable JAMALNANCY WOODALL Referring Unavailable VONTHRON, MELY A Primary Care [...] Unavailable MARITZA, GUSTAVO A Primary Care Unavailable TODD POSEY JR Referring Unavailable MARITZA, GUSTAVO A Primary Care Unavailable VALONE JR, TODD L Referring Unavailable MARITZA, GUSTAVO A Primary Care Unavailable TODD POSEY JR Referring Unavailable MARITZA, GUSTAVO A Primary Care Unavailable TODD POSEY JR L Referring Unavailable MARITZA, GUSTAVO A Primary Care Unavailable MARITZA, GUSTAVO A Referring Unavailable MARITZA, GUSTAVO A Primary Care Unavailable HUFDHI, RAIED Referring Unavailable MARITZA, GUSTAVO A Primary Care Unavailable RESERKEIKO Referring Unavailabl e MARITZA, GUSTAVO A Primary [...] Attending Unavailable GUSTAVO SALAS A Referring Unavailable GUSTAVO SALAS A Attending Unavailable MARITZA, GUSTAVO A Referring Unavailable MARITZAGUSTAVO LEMUS A Referring Unavailable GUSTAVO SALAS A Attending Unavailable MARITZA, GUSTAVO A Referring Unavailable GUSTAVO SALAS A Attending Unavailable MARITZA, GUSTAVO A Referring Unavailable MARITZAGUSTAVO LEMUS A Attending Unavailable MARITZA, GUSTAVO A Referring Unavailable MARITZA, GUSTAVO A Referring Unavailable MARITZAGUSTAVO LEMUS A Attending Unavailable Maritza DO, Gustavo A Unavailable Jenna Engle Attending Unavailable Gustavo Salas Primary Care Unavailable Jenna Engle Admitting Unavailable Gustavo Salas Primary Care Unavailable [place]oacano Mckenzie Attending Unavailab Lucho Yoder Admitting Unavailable JENNA ENGLE Referring Unavailable GUSTAVO SALAS Primary Care Unavailable Allergies Allergy Classification Reported Allergen(s) Allergy Type Date of Onset Reaction(s) Facility (11 sources) Acetaminophen / oxyCODONE; Translations: [acetaminophen-ox ycodone] Drug Allergy 3 vomiting [facility] Other (20 sources) Aspirin; Translations: [aspirin] Drug Allergy 05-06-201 9 Other, Nausea/vomiting [facility] (9 sources) Acetaminophen / oxyCODONE; Translations: [OXYCODONE-ACETAM INOPHEN] Drug Allergy 3 GI intolerance [facility] (4 sources) Ibuprofen; Translations: [IBUPROFEN] Drug Allergy 4 Nausea/vomiting [facility] (8 sources) Acetaminophen; Translations: [acetaminophen] Drug Allergy 4 GI intolerance [facility] (10 sources) oxyCODONE; Translations: [OXYCODONE] Drug Allergy 1 GI intolerance [facility] (1 source) Acetaminophen / oxyCODONE; Translations: [acetaminophen-ox ycodone] Drug Allergy [facility] Rep[facility] Medications Current Medications Medication Drug Class(es) [...] needed Orally every 8 hrs PRN Active [id number] 200 actuat albuterol 0.09 mg/actuat metered dose inhaler (20 sources) beta2-Adrenergic Agonist Start: 05-22-2024 take 2 puff(s) by inhalation every four hours for wheezing albuterol HFA (Ventolin HFA) 90 mcg/act inhaler Indications: Chronic obstructive pulmonary disease, unspecified COPD type ([facility]/HCC) Inhale 2 puffs every 4 (four) hours [...] the 1 tab daily for 4 days benzonatate 100 mg oral capsule (3 sources) Non-narcotic Antitussive Start: 09-23-2024 take 1 capsule by mouth in the morning benzonatate (Tessalon) 100 MG capsule Take 100 mg by mouth in the morning and 100 mg before bedtime. 09/23/2024 Active 24 hr buPROPion hydrochloride 300 mg extended [...] (LIST CLEANUP) cefdinir 300 mg oral capsule (6 sources) Cephalosporin Antibacterial Start: 09-23-2024 take 1 capsule by mouth in the morning cefdinir (Omnicef) 300 MG capsule Take 300 mg by mouth in the morning and 300 mg before bedtime. 09/23/2024 Active Start: 02-17-2024 take 300 mg by mouth twice krunal [...] day(s), # 14 cap(s), Refills(s) 0, Pharmacy: [id number], 170, cm, 01/30/24 13:39:00 EDT, Height/Length Dosing, 80.2, kg, 01/30/24 13:39:00 EDT, Weight Dosing Start Date: 01/30/24 Stop Date: 02/06/24 Status: Ordered Start: 07-14-2023 End: 08-17-2023 take 500 mg by mouth twice daily Cephalexin Discontinued 500 MG PO Twice daily 03 30July 14, 2023 12:00am August 17, 2023 6:48pm Start: 04-28-2020 End: 08-31-2020 take 500 mg by mouth twice daily Cephalexin Discontinued 500 MG PO Twice daily 08 01April 28, 2020 12:00am August 31, 2020 3:52pm [...] Start: 09-21-2020 take 2000 [IU] by mo uth once daily Cholecalciferol (Vitamin D3) Active 2000 UNIT PO Daily September 21, 2020 1:00am Start: 08-31-2020 End: 09-21-2020 take 50 ug by mouth once daily Cholecalciferol (Vitami n D3) Discontinued 50 MCG PO Daily August 31, 2020 1:00am September 21, 2020 1:41pm take 1 tablet by nika twice daily cholecalciferol, vitamin D3, 75 mcg [...] (Plavix) 75 MG tablet Indications: Atherosclerosis of grayling coronary 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 (CMS/HCC) Take 1 tablet (75 mg) by mouth 1 (one) time each day at the same time 90 tablet 3 09/03/2024 Active Start: 12-31-2022 take 75 mg by mouth once daily Clopidogrel Active 75 MG PO Daily 0 December 31, 2022 1:00am cyclobenzaprine hydrochloride 5 mg oral tablet (4 sources) Muscle Relaxant Start: 10-01-2024 take 1 tablet by mouth twice daily as needed for muscle spasms cyclobenzaprine (Flexeril) 5 MG tablet Indications: Dorsalgia, unspecified Take 1 tablet (5 mg) by mouth 2 (two) times a day as needed for muscle spasms 10 tablet 10/01/2024 Active DAPTOmycin in sodium chloride 0.9 % 50 mL IVPB (4 sources) Start: 10-23-2023 End: 11-17-2023 DAPTOmycin in sodium chloride 0.9 % 50 mL IVPB 650 mg daily pharmacy to dose. 50 mL 26 10/23/2023 11/17/2023 Active doxycycline hyclate 100 mg oral capsule (11 sources) Tetracycline-cla ss Drug Start: 06-17-2023 End: 07-10-2023 take 1 capsule by mouth twice daily doxycycline (Vibramycin) 100 MG capsule TAKE 1 CAPSULE BY MOUTH 2 TIMES A DAY FOR 7 DAYS 06/17/2023 Active 0.4 ml enoxaparin sodium 100 mg/ml prefilled syringe (1 source) Low Molecular Weight Heparin Start: 08-02-2019 enoxaparin (LOVENOX) injection 40 mg famotidine 40 mg oral tablet (12 sources) Histamine-2 Receptor Antagonist Start: 02-15-2024 take [...] 1 puff in the morning. 1 each 05/22/2024 Active Start: 07-10-2023 Fluticasone-Um eclidin-Vilanter (Trelegy Ellipta) 100-62.5-25 mcg Blister With Device Active 1 INH INHALATION Daily July 10, 2023 12:00am Start: 04-01-2023 End: 12-09-2023 take 1 puff(s) by inhalation in the morning Acmxhuavliq-Jonfokedr-Wfewbz (Trelegy Ellipta) 100-62.5-25 MCG/ACT aerosol powder Indications: Panlobular emphysema (CMS/HCC) Inhale 1 puff in the morning. 1 each 04/01/2023 12/09/2023 Discontinued (Other) Start: 04-01-2023 take 1 puff(s) by inhalation once daily uqjvlmddbvz-lmaahopdn-hlwvcnkd (TRELEGY ELLIPTA) 100-62.5-25 mcg blister with device Inhale 1 puff once daily. 0 04/01/2023 Active Start: 02-23-2020 End: 04-25-2020 Wkfqpfbqkcz-Rcstraxcg-Oujszn er (Trelegy Ellipta) 100-62.5-25 mcg blister with device Discontinued 1 PUFF INHALATION As Directed February 22, 2020 11:00pm April 25, 2020 5:58pm Start: 02-23-2020 End: 04-25-2020 Hmdjfytqwvy-Aqjoqqafl-Joymhh er (Trelegy Ellipta) 100-62.5-25 mcg blister with device Discontinued 1 PUFF INHALATION As Directed February 23, 2020 12:00am April 25, 2020 6:58pm take 1 puff(s) by inhalation once daily Trelegy Ellipta 100-62.5-25 MCG/INH 1 pu ff Inhalation Once a day for 30 days Active Cepmsitcnng-Xtoesckis-Cniqxf (Trelegy Ellipta) 200-62.5-25 MCG/ACT aerosol powder (5 sources) take 1 puff(s) by inhalation once daily Uxymewmaouw-Gnmggqcul-Badslt (Trelegy Ellipta) 200-62.5-25 MCG/ACT aerosol powder Inhale 1 puff Daily Active furosemide 40 mg oral tablet (20 sources) Loop Diuretic St ar t: En d: take 1 tablet by mouth once daily [...] other day levoFLOXacin 500 mg oral tablet (9 sources) Quinolone Antimicrobial Start: 11-28-2023 take 1 tablet by mouth in the morning levoFLOXacin (Levaquin) 500 MG tablet Take 500 mg by mouth in the morning. 11/28/2023 Active lisinopril 5 mg oral tablet (20 sources) Angiotensin Converting Enzyme Inhibitor Start: 03-20-2023 End: 12-09-2023 lisinopril 5 MG tablet Daily 07/10/2023 Active Start: 12-31-2022 End: 07-10-2023 take 2.5 mg by mouth once daily Lisinopril Discontinued 2.5 MG PO Daily December 31, 2022 1:00am July 10, 2023 [...] 6:35pm loperamide hydrochloride 2 mg oral capsule (5 sources) Opioid Agonist Start: 02-25-2024 take 1 capsule by mouth four times daily as needed loperamide (Imodium) 2 MG capsule Take 2 mg by mouth 4 (four) times a day as needed 02/25/2024 Active magnesium oxide 400 mg oral tablet (5 sources) Start: 10-23-2023 magnesium oxid e (Mag-Ox) 400 (240 Mg) MG tablet 10/23/2023 Active melatonin 5 mg oral capsule (19 sources) Start: 09-03-2024 Melatonin 5 MG capsule Indications: Insomnia, unspecified type Take 1 tablet by mouth as needed at bedtime (for sleep) 90 capsule 3 09/03/2024 Active Start: 02-15-2024 take 5 mg by mouth at bedtime Melatonin Active 5 MG PO Bedtime February 15, 2024 12:00am Start: 04-04-2024 Melatonin 5 mg oral tablet 30 tab(s), [...] MG 24 hr tablet Indications: Atherosclerosis of grayling coronary artery without angina pectoris, unspecified whether grayling or transplanted heart (CMS/HCC) TAKE 1 TABLET [...] sources) Polyene Antifungal Start: 05-06-2024 nystatin (Mycostatin) 842160 UNIT/GM powder Indications: Rash Apply topically 2 [...] 06/17/2023 Active Start: 06-17-2023 nystatin (Myco statin) 704481 UNIT/GM powder Indications: Rash APPLY TOPICALLY TO [...] April 25, 2020 5:24pm ondansetron 4 mg disintegrating oral tablet (8 sources) Serotonin-3 Receptor Antagonist Start: 08-14-2024 ondansetron ODT (Zofran-ODT) 4 MG disintegrating tablet DISSOLVE 1 (ONE) TABLET ON THE TONGUE EVERY 8 HOURS NEEDED FOR NAUSEA AND VOMITING for 2 (TWO) days 08/14/2024 Active Start: 09-20-2023 take 1 tablet by nika th every six hours as needed for nausea [...] PO Every morning September 21, 2020 1:38pm polyethylene glycol 3350 26792 mg powder for oral solution (3 sources) Osmotic Laxative Start: 10-02-2024 polyethylene glycol, PEG, 3350 (Glycolax) 17 GM/SCOOP powder take 17 gms BY MOUTH DIRECTED EVERY DAY NEEDED FOR CONSTIPATION 10/02/2024 Active potassium chloride 10 meq extended release oral capsule (18 sources) Start: 02-15-2024 take 20 mEq by mouth once daily Potassium Chloride Active 20 MEQ PO Daily February 15, 2024 12:00am Start: 01-30-2024 potassium chlo ride 10 mEq Cap-ER Refills(s) 0 Start Date: 01/30/24 Status: Ordered Start: 12-30-2023 potassium chlo ride ER (Micro-K) 10 MEQ [...] by mouth nightly. 0 10/23/2023 Active sennosides, alf 8.6 mg oral tablet (2 sources) Start: 09-21-2020 take 1 tablet by mouth once daily at bedtime Sennosides (Senna Lax) 8.6 mg Tablet Active 1 TAB PO Daily at bedtime 30 September 21, 2020 12:00am 1000 ml sodium chloride 9 mg/ml injection (6 sources) Start: 10-04-2023 sodium chlorid e 0.9 % solution 10/04/2023 Active Start: 08-02-2019 Intravenous, a t 100 mL/hr, CONTINUOUS, Starting 08/02/19 at 0030 solifenacin succinate 10 mg oral tablet (5 sources) Cholinergic Muscarinic Antagonist Start: 01-10-2024 take 1 [...] oral tablet (20 sources) Opioid Agonist Start: 10-02-2024 End: 10-06-2024 take 1 tablet by mouth every six hours as needed for pain HYDROcodone-acetami nophen ([place]) 5-325 MG tablet TAKE 1 TABLET BY MOUTH EVERY 6 HOURS NEEDED FOR PAIN FOR 3 DAYS 10/02/2024 10/06/2024 Discontinued (Ineffective) Start: 01-15-2020 End: 02-23-2020 take 1 tablet by mouth every four to six hours Hydrocodone-Acetaminophen ([place]) 5-325 mg tablet Discontinued 1 TAB PO EVERY 4-6 HOURS 07 30January 15, 2020 February 23, 2020 2:44pm Start: 08-02-2019 HYDROcodone-ac etaminophen ([place]) 5-325 MG per tablet 1 tablet Start: 01-02-2019 End: 01-12-2019 take 1 tablet by mouth every six hours Hydrocodone-Acetaminophen ([place]) 5-325 mg tablet Discontinued 1 TAB PO Q6H 16 03January 02, 2019 January 12, 2019 6:44am Start: 06-22-2018 End: 08-01-2019 take 1 tablet by mouth every four to six hours Hydrocodone-Acetaminophen ([place]) 5-325 mg tablet Discontinued 1 TAB PO EVERY 4-6 HOURS June 22, 2018 August 01, 2019 6:32pm End: 08-02-2019 take 1 tablet by mouth every six hours as needed HYDROcodone-acetaminophen (VICODIN) 5-50 0 MG per tablet Take 1 tablet by mouth every 6 hours as needed. 0 08/02/2019 Discontinued (LIST CLEANUP) acetaminophen 325 mg / oxyCODONE hydrochloride 5 mg oral tablet (12 sources) Opioid Agonist Start: 10-04-2024 End: 10-06-2024 take 1 tablet by mouth every six hours as needed for pain oxyCODONE-acetaminophen (Percocet) 5-325 MG tablet TAKE 1 TABLET BY MOUTH EVERY 6 (SIX) HOURS NEEDED FOR PAIN for 3 (THREE) days 10/04/2024 10/06/2024 Discontinued (Ineffective) Start: 04-23-2018 End: 06-22-2018 take 1 tablet [...] 2020 6:57pm take 1 tablet by nika once daily Aspirin 81 81 MG 1 [...] D2 Compound Start: 04-28-2020 End: 12-26-2022 take 68498 [IU] by mouth every month Ergocalciferol (Vitamin D2) Discontinued 31313 UNIT PO every month April 28, 2020 [...] application Externally Twice a day prn Active Ftlgwzdnxlgy-Fumlpuxp-Thckqi (Multivitamin 50 Plus) Tablet (10 sources) Start: 02-23-2020 End: 04-25-2020 Ogtcugpmifzf-Elliktgp-Whggwr (Multivitamin 50 Plus) Tablet Discontinued 1 TAB PO Daily February 22, 2020 11:00pm April 25, 2020 5:58pm Start: 02-23-2020 End: 04-25-2020 Usiwzodhrvze-Pkcchfde-Xmzark (Multivitamin 50 Plus) Tablet Discontinued 1 TAB [...] DOSES CALL 911 Sublingual as needed Active Wirt-3 Fatty Acids-Fish Oil (Fish Oil) 300-1,000 mg capsule (10 sources) Start: 08-01-2019 End: 02-23-2020 take 1 capsule by mouth once daily Wirt-3 Fatty Acids-Fish Oil (Fish Oil) 300-1,000 mg capsule Discontinued 1000 MG PO Daily July 31, 2019 11:00pm February 23, 2020 3:42pm Start: 08-01-2019 End: 02-23-2020 take 1 capsule by mouth once daily Wirt-3 Fatty Acids-Fish Oil (Fish Oil) 300-1,000 mg [...] [Cerebral infarction, unspecified] 04-26-2020 Chronic Anxiety disorders (13 sources) Anxiety; Translations: [Anxiety disorder, unspecified] Onset: 3 10-07-2023 Chronic Bacterial infection; unspecified site (2 sources) Streptococcal infection, unspecified site; Translations: [Resistance to vancomycin] Onset: 4 Episodic Calculus of urinary tract (5 sources) Kidney stone; Translations: [Calculus of kidney] Episodic Chronic kidney disease (14 sources) Chronic kidney disease stage 3A ; [...] 4 09-06-2020 Chronic Chronic ulcer of skin (16 sources) Non-pressure chronic ulcer of other part of left foot with fat layer exposed; Translations: [Ulcer of other part of foot] Onset: 3 Resolved: 4 10-07-2023 Chronic Congestive heart failure; nonhypertensive (18 sources) Congestive heart failure; Translations: [Heart failure, [...] Onset: 9 08-02-2019 Chronic Diverticulosis and diverticulitis (14 sources) Diverticular disease; Translations: [Diverticulosis of intestine, [...] 3 Episodic Genitourinary symptoms and ill-defined conditions (10 sources) Incontinence; Translations: [Unspecified urinary incontinence] Onset: [...] Onset: 3 Resolved: 4 03-28-2023 Chronic Osteoporosis (20 sources) Senile osteoporosis; Translations: [Age-related osteoporosis without current pathological fracture] Onset: 3 Resolved: 4 10-07-2023 Chronic Other circulatory disease (10 sources) Low blood pressure; Translations: [Hypotension, unspecified] 08-31-2020 Episodic Other connective tissue disease (9 sources) History of total hip arthroplasty; Translations: [...] sources) Wheezing; Translations: [Wheezing] 12-09-2023 Episodic Other nervous system disorders (10 sources) [...] Chronic Other nutritional; endocrine; and metabolic disorders (5 sources) Obesity caused by energy imbalance; Translations: [Morbid [...] rhinitis, unspecified] Chronic Peripheral and visceral atherosclerosis (7 sources) Atherosclerosis of aorta; Translations: [Atherosclerosis of aorta] Onset: 4 01-23-2024 Chronic Prolapse of female genital organs (2 sources) Cystocele; Translations: [Cystocele, unspecified] 12-09-2023 Chronic Residual codes; unclassified (13 sources) Sleep apnea; Translations: [Sleep apnea, unspecified] [...] 06-25-2023 Episodic Respiratory failure; insufficiency; arrest (adult) (20 sources) Chronic hypoxemic respiratory failure; Translations: [Chronic respiratory failure with hypoxia] Onset: 3 Resolved: 4 01-06-2024 Chronic Screening and history of mental health and substance abuse codes (1 source) Personal history of nicotine dependence; Translations: [Personal history of nicotine dependence] Onset: 4 Episodic Spondylosis; intervertebral disc disorders; other back problems (20 sources) Degeneration of lumbar intervertebral disc; Translations: [Other intervertebral disc degeneration, lumbar region] Onset: 3 Resolved: 4 03-28-2023 Chronic Spondylosis; intervertebral disc disorders; other back problems (20 sources) Chronic low back pain; Translations: [Lumbago with sciatica, left side] Onset: 3 06-14-2023 Episodic Transient cerebral ischemia (20 sources) Transient cerebral [...] Date Documented Da te Episodic/Chronic Abdominal hernia (20 sources) Umbilical hernia; Translations: [Umbilical hernia without obstruction or gangrene] Onset: 3 Resolved: 4 07-11-2023 Episodic Acute and unspecified renal failure (20 sources) Injury of kidney; Translations: [Acute kidney failure, unspecified] Onset: 3 Resolved: 4 09-12-2020 Episodic Administrative/social admission (20 sources) Reduced mobility; Translations: [Other reduced mobility] Onset: 3 Resolved: 4 04-28-2020 Episodic Allergic reactions (5 sources) Atopic dermatitis; Translations: [Intrinsic (allergic) eczema] Onset: 3 Resolved: 4 03-25-2024 Chronic Allergic reactions (9 sources) Inflammatory dermatosis; Translations: [Dermatitis, unspecified] Onset: 3 06-14-2023 Episodic Cardiac dysrhythmias (11 sources) Longstanding persistent atrial fibrillation; Translations: [Longstanding persistent atrial fibrillation] Onset: 9 Resolved: 4 08-02-2019 Chronic Coronary atherosclerosis and other heart disease (7 sources) Coronary angioplasty status; Translations: [Stented coronary artery] Onset: 4 Resolved: 4 Episodic Deficiency and other anemia (10 sources) Microcytic anemia; Translations: [Iron deficiency anemia, unspecified] Onset: 4 Resolved: 4 01-06-2024 Episodic Diabetes mellitus with complications (5 sources) Neuropathy due to diabetes mellitus; Translations: [Type 2 diabetes mellitus with diabetic neuropathy, unspecified] Onset: 4 Resolved: 4 03-25-2024 Chronic Diabetes mellitus without complication (7 sources) Impaired fasting glycemia; Translations: [Impaired fasting glucose] Onset: 4 01-23-2024 Episodic Diseases of white blood cells (15 sources) Leukocytosis; Translations: [Elevated white blood cell count, unspecified] Onset: 4 Resolved: 4 09-06-2020 Chronic E Codes: Fall (20 sources) Fall; Translations: [Unspecified fall, initial encounter] Onset: 3 Resolved: 4 08-31-2020 Episodic Fracture of lower limb (5 sources) Fracture of femur; Translations: [Unspecified fracture of left femur, sequela] Onset: 3 Resolved: 4 03-25-2024 Episodic Fracture of neck of femur (hip) (20 sources) Intertrochanteric fracture; Translations: [Displaced intertrochanteric fracture of unspecified femur, initial encounter for closed fracture] Onset: 4 Resolved: 4 08-31-2020 Episodic Intestinal obstruction without hernia (7 sources) Small bowel obstruction; Translations: [Unspecified intestinal obstruction, unspecified as to partial versus complete obstruction] Onset: 9 Resolved: 4 08-01-2019 Episodic Malaise and fatigue (20 sources) Physical deconditioning; Translations: [Other malaise] Onset: 4 Resolved: 4 12-27-2022 Episodic Mood disorders (11 sources) Mood disorders Onset: 3 Resolved: 3 10-06-2023 Mycoses (9 sources) Onychomycosis; Translations: [Tinea unguium] Onset: 3 06-14-2023 Episodic Nausea and vomiting (9 sources) Nausea and vomiting; Translations: [Nausea with vomiting, unspecified] Onset: 4 Resolved: 4 02-14-2024 Episodic Nutritional deficiencies (20 sources) Vitamin D deficiency; Translations: [Vitamin D deficiency, unspecified] Onset: 3 Resolved: 4 04-28-2020 Chronic Nutritional deficiencies (5 sources) Nutritional deficiency state; Translations: [Nutritional deficiency, unspecified] Onset: 3 Resolved: 4 03-25-2024 Episodic Other aftercare (9 sources) Post-discharge follow-up; Translations: [Encounter for follow-up examination after completed treatment for conditions other than malignant neoplasm] Onset: 3 Resolved: 4 12-09-2023 Episodic Other aftercare (5 sources) 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; Translations: [skilled nursing (current) use of anticoagulants] Onset: 9 Resolved: 4 03-25-2024 Episodic Other and ill-defined heart disease (7 sources) Heart disease; Translations: [Heart disease, unspecified] Onset: 3 Resolved: 4 06-14-2023 Chronic Other and unspecified benign neoplasm (9 sources) Polyp of colon; Translations: [Polyp of colon] Onset: 3 06-14-2023 Episodic Other bone disease and musculoskeletal deformities (5 sources) Osteopenia; Translations: [Other specified disorders of bone density and structure, right thigh] Onset: 4 Resolved: 4 05-06-2024 Episodic Other circulatory disease (5 sources) History of cerebrovascular disease; Translations: [Personal history of transient ischemic attack (TIA), and cerebral infarction without residual deficits] Onset: 3 Resolved: 4 03-25-2024 Episodic Other connective tissue disease (5 sources) Recurrent falls ; Translations: [Repeated falls] Onset: 3 Resolved: 4 03-25-2024 Episodic Other connective tissue disease (5 sources) Muscle weakness; Translations: [Muscle weakness (generalized)] Onset: 3 Resolved: 4 03-25-2024 Episodic Other ear and sense organ disorders (5 sources) Hearing loss of right ear; Translations: [Impacted cerumen, right ear] Onset: 4 12-30-2023 Episodic Other gastrointestinal disorders (5 sources) Colostomy present; Translations: [Encounter for attention to colostomy] Onset: 4 Resolved: 4 03-25-2024 Chronic Other gastrointestinal disorders (7 sources) Constipation; Translations: [Constipation, unspecified] Onset: 3 Resolved: 4 06-14-2023 Episodic Other gastrointestinal disorders (5 sources) History of diverticulitis; Translations: [Personal history of other diseases of the digestive system] Onset: 5 Resolved: 4 03-25-2024 Episodic Other hereditary and degenerative nervous system conditions (5 sources) Essential tremor; Translations: [Essential tremor] Onset: 4 Resolved: 4 03-25-2024 Chronic Other inflammatory condition of skin (15 sources) Intertrigo; Translations: [Erythema intertrigo] Onset: 3 Resolved: 4 04-28-2020 Episodic Other injuries and conditions due to external causes (10 sources) Closed injury of head; Translations: [Unspecified injury of head, initial encounter] Onset: 4 Resolved: 4 07-10-2023 Episodic Other injuries and conditions due to external causes (7 sources) At risk for falls ; Translations: [History of falling] Onset: 3 06-14-2023 Episodic Other lower respiratory disease (19 sources) Dyspnea; Translations: [Shortness of breath] Onset: 3 Resolved: 4 12-09-2023 Episodic Other lower respiratory disease (10 sources) Productive cough ; Translations: [Cough with expectoration] Onset: 4 Resolved: 4 01-06-2024 Episodic Other lower respiratory disease (7 sources) Hypoxia; Translations: [Hypoxemia] Onset: 4 01-23-2024 Episodic Other lower respiratory disease (6 sources) Shortness of breath; Translations: [Shortness of breath] Onset: 4 Episodic Other lower respiratory disease (2 sources) Shortness of breath; Translations: [Shortness of breath] Onset: 4 Episodic Other lower respiratory disease (1 source) Acute respiratory distress; Translations: [Acute respiratory distress] Onset: 3 Episodic Other nervous system disorders (11 sources) Disorder of brain; Translations: [Encephalopathy, unspecified] Onset: 3 Resolved: 4 10-07-2023 Chronic Other nervous system disorders (5 sources) Cognitive deficit in communication skills; Translations: [Cognitive communication deficit] Onset: 3 Resolved: 4 03-25-2024 Chronic Other nervous system disorders (5 sources) Difficulty walking; Translations: [Difficulty in walking, not elsewhere classified] Onset: 3 Resolved: 4 03-25-2024 Chronic Other nervous system disorders (5 sources) Polyneuropathy; Translations: [Polyneuropathy, unspecified] Onset: 3 Resolved: 4 03-25-2024 Chronic Other nervous system disorders (15 sources) Disturbance in speech; Translations: [Unspecified speech disturbances] Onset: 4 Resolved: 4 04-26-2020 Episodic Other nervous system disorders (5 sources) Tremor; Translations: [Tremor, unspecified] Onset: 3 Resolved: 4 03-25-2024 Episodic Other nervous system disorders (5 sources) Incoordination; Translations: [Unspecified lack of coordination] Onset: 3 Resolved: 4 03-25-2024 Episodic Other non-traumatic joint disorders (15 sources) Hip pain; Translations: [Pain in unspecified hip] Onset: 4 Resolved: 4 05-31-2022 Episodic Other non-traumatic joint disorders (5 sources) Sinus tarsi syndrome of left ankle; Translations: [Pain in left ankle and joints of left foot] Onset: 3 06-14-2023 Episodic Other nutritional; endocrine; and metabolic disorders (20 sources) Body mass index 30+ - obesity; Translations: [Body mass index (BMI) 37.0-37.9, adult] Onset: 4 Resolved: 4 01-06-2024 Chronic Other nutritional; endocrine; and metabolic disorders (17 sources) Obesity; Translations: [Obesity, unspecified] Onset: 3 Resolved: 4 09-06-2020 Chronic Pneumonia (except that caused by tuberculosis or sexually transmitted disease) (12 sources) Pneumonia; Translations: [Pneumonia, unspecified organism] Onset: 4 Resolved: 4 02-14-2024 Episodic Pulmonary heart disease (9 sources) Pulmonary hypertension; Translations: [Pulmonary hypertension, unspecified] Onset: 3 Resolved: 4 10-07-2023 Chronic Residual codes; unclassified (13 sources) Activity of daily living (ADL) alteration; Translations: [Other specified health status] Onset: 4 Resolved: 4 12-26-2022 Episodic Residual codes; unclassified (7 sources) Insomnia; Translations: [Insomnia, unspecified] Onset: 3 06-14-2023 Episodic Residual codes; unclassified (7 sources) Edema of lower extremity; Translations: [Localized edema] Onset: 3 06-14-2023 Episodic Residual codes; unclassified (7 sources) Tobacco user; Translations: [Tobacco use] Onset: 3 Resolved: 4 06-14-2023 Episodic Residual codes; unclassified (7 sources) Localized edema; Translations: [Localized edema] Onset: 3 Resolved: 4 06-19-2023 Episodic Septicemia (except in labor) (7 sources) Sepsis; Translations: [Sepsis, unspecified organism] Onset: 3 10-07-2023 Episodic Substance-related disorders (20 sources) Nicotine dependence; Translations: [Nicotine dependence, unspecified, uncomplicated] Onset: 3 Resolved: 4 10-07-2023 Chronic Superficial injury; contusion (13 sources) Contusion of hip; Translations: [Contusion of unspecified hip, initial encounter] Onset: 4 Resolved: 4 07-10-2023 Episodic Unclassified (6 sources) Onset: 4 Resolved: 4 02-10-2024 Unclassified (1 source) Other specified cough; Translations: [Other specified cough] Onset: 4 Urinary tract infections (20 sources) Urinary tract infectious disease; Translations: [Urinary tract infection, site not specified] Onset: 4 Resolved: 4 04-28-2020 Episodic Viral infection (9 sources) Verruca plantaris; Translations: [Plantar wart] Onset: 3 06-14-2023 Episodic Results Test Name Value Interpretation Reference Range Facility URINE CULTURE, ROUTINEon Bacteria identified Cx Nom (U) Urine Culture, Routine [facility] Bacteria identified [facility] Nom (U) Mixed urogenital kimberly [facility] Bacteria identified Cx Nom (U) 10,000-25,000 colony forming units per mL [facility] Bacteria identified Cx Nom (U) Performed at: - [facility] Bacteria identified Cx Nom (U) [address] [place], [place] [id number] [facility] Bacteria identified Cx Nom (U) Printing Worker Supervisor: Jamil Giraldo PhD, Phone: [phone] [facility] XR CHEST 2 VIEWSon 4 XR CHEST [...] detection for pulmonary nodules was performed utilizing [employer] software. FINDINGS: No pleural or pericardial effusion. [...] Blake MD on 05/01/2024 9:36 AM Normal [facility] BLOOD UREA NITROGENon 2023 Urea nitrogen [Mass/Vol] 20 mg/dL Normal 5-27 [facility] Comment on above: Performed By: #### C SOWMYA, BMP #### [facility] ([id number]) [address] [place] [address] 39564 CBC AND AUTO DIFFon 04-13-20 24 ABSOLUTE BASOPHIL 0.0 X10E9/L Normal 0.0-0.2 [facility] Comment on above: Performed By: #### C SOWMYA, BMP #### [facility] ([id number]) [address] [place] [address] 82126 ABSOLUTE NEUTROPHIL 7.1 X10E9/L High 1.5-6.6 [facility] Comment on above: Performed By: #### C SOWMYA, BMP #### [facility] ([id number]) [address] [place] [address] 24456 Basophils/100 WBC (Bld) 0.4 % Normal [facility] Comment on above: Performed By: #### C SOWMYA, BMP #### [facility] ([id number]) [address] [place] [address] 67283 Eosinophils (Bld) [#/Vol] 0.3 10*3/uL Normal 0.0-0.4 [facility] Comment on above: Performed By: #### C SOWMYA, BMP #### [facility] ([id number]) [address] [place] [address] 63181 Eosinophils/100 WBC (Bld) 2.8 % Normal [facility] Comment on above: Performed By: #### C SOWMYA, BMP #### [facility] ([id number]) [address] [place] [address] 12352 Erythrocyte distribution width (RBC) [Ratio] 19.0 % High 11.5-15.0 [facility] Comment on above: Performed By: #### C SOWMYA, BMP #### [facility] ([id number]) [address] [place] [address] 16965 Hematocrit (Bld) [Volume fraction] 27.8 % Low 35-47 [facility] Comment on above: Performed By: #### C BCA, BMP #### [facility] ([id number]) [address] [place] [address] 31955 Hemoglobin (Bld) [Mass/Vol] 9.0 g/dL Low 11.7-15.5 [facility] Comment on above: Performed By: #### C BCA, BMP #### [facility] ([id number]) [address] [place] [address] 65704 Lymphocytes (Bld) [#/Vol] 3.2 10*3/uL Normal 1.0-3.5 [facility] Comment on above: Performed By: #### C SOWMYA, BMP #### [facility] ([id number]) [address] [place] [address] 24725 Lymphocytes/100 WBC (Bld) 27.2 % Normal [facility] Comment on above: Performed By: #### C BCA, BMP #### [facility] ([id number]) [address] [place] [address] 71493 MCH (RBC) [Entitic mass] 24.5 pg Low 27-34 [facility] Comment on above: Performed By: #### C BCA, BMP #### [facility] ([id number]) [address] [place] [address] 06870 MCHC (RBC) [Mass/Vol] 32.3 g/dL Normal 32-36 [facility] Comment on above: Performed By: #### C BCA, BMP #### [facility] ([id number]) [address] [place] [address] 41921 MCV (RBC) [Entitic vol] 76 fL Low 80-100 [facility] Comment on above: Performed By: #### C BCA, BMP #### [facility] ([id number]) [address] [place] [address] [place] [address] Monocytes (Bld) [#/Vol] 1.0 10*3/uL High 0-0.9 [facility] Comment on above: Performed By: #### C SOWMYA, BMP #### [facility] ([id number]) [address] [place] [address] 40908 Monocytes/100 WBC (Bld) 8.4 % Normal [facility] Comment on above: Performed By: #### C SOWMYA, BMP #### [facility] ([id number]) [address] [place] [address] 03788 Neutrophils/100 WBC (Bld) 61.2 % Normal [facility] Comment on above: Performed By: #### C SOWMYA, BMP #### [facility] ([id number]) [address] [place] [address] 32644 Platelet mean volume (Bld) [Entitic vol] 6.8 fL Low 7-12 [facility] Comment on above: Performed By: #### C SOWMYA, BMP #### [facility] ([id number]) [address] [place] [address] 58066 Platelets (Bld) [#/Vol] 353 10*3/uL Normal 150-450 [facility] Comment on above: Performed By: #### C SOWMYA, BMP #### [facility] ([id number]) [address] [place] [address] 83051 RBC COUNT 3.67 X10E12/L Low 3.80-5.20 [facility] Comment on above: Performed By: #### C SOWMYA, BMP #### [facility] ([id number]) [address] [place] [address] 19291 WBC (Bld) [#/Vol] 11.7 10*3/uL High 4.0-11.0 [facility] Comment on above: Performed By: #### C SOWMYA, BMP #### [facility] ([id number]) [address] [place] [address] 51540 CREATININEon 04-13-2024 Creatinine [Mass/Vol] 1.16 mg/dL High 0.40-1.00 [facility] Comment on above: Result Comment: METH OD TRACEABLE TO IDMS STANDARD Performed By: #### C BCA, BMP #### [facility] ([id number]) [address] [place] [address] 88625 GFR/1.73 sq M.predicted among non-blacks MDRD (S/P/Bld) [Vol rate/Area] 48 mL/min/{1.73_m2} Low >59 [facility] Comment on above: Result Comment: Reported eGFR is based on the CKD-EPI 2020 equation that does not use a race coefficient. Performed By: #### C BCA, BMP #### [facility] ([id number]) [address] [place] [address] 70199 ELECTROLYTESon 04-13-2024 Anion gap [Moles/Vol] 4 mmol/L Low 5-15 [facility] Comment on above: Performed By: #### C BCA, BMP #### [facility] ([id number]) [address] [place] [address] 46028 Chloride [Moles/Vol] 106 mmol/L Normal 98-109 [facility] Comment on above: Performed By: #### C BCA, BMP #### [facility] ([id number]) [address] [place] [address] 62558 CO2 [Moles/Vol] 25 mmol/L Normal 22-32 [facility] Comment on above: Performed By: #### C BCA, BMP #### [facility] ([id number]) [address] [place] [address] 19788 Potassium [Moles/Vol] 4.0 mmol/L Normal 3.5-5.0 [facility] Comment on above: Performed By: #### C BCA, BMP #### [facility] ([id number]) [address] [place] [address] 81018 Sodium [Moles/Vol] 135 mmol/L Normal 134-146 [facility] Comment on above: Performed By: #### C SOWMYA, BMP #### [facility] ([id number]) [address] [place] [address] 95816 BLOOD UREA NITROGENon 2023 Urea nitrogen [Mass/Vol] 19 mg/dL Normal 5-27 [facility] Comment on above: Performed By: #### C SOWMYA, BMP #### [facility] ([id number]) [address] [place] [address] 03504 CBC AND AUTO DIFFon 04-08-20 24 ABSOLUTE BASOPHIL 0.1 X10E9/L Normal 0.0-0.2 [facility] Comment on above: Performed By: #### C SOWMYA, BMP #### [facility] ([id number]) [address] [place] [address] 97209 ABSOLUTE NEUTROPHIL 4.2 X10E9/L Normal 1.5-6.6 [facility] Comment on above: Performed By: #### C SOWMYA, BMP #### [facility] ([id number]) [address] [place] [address] 41294 Basophils/100 WBC (Bld) 1.1 % Normal [facility] Comment on above: Performed By: #### C SOWMYA, BMP #### [facility] ([id number]) [address] [place] [address] 75401 Eosinophils (Bld) [#/Vol] 0.4 10*3/uL Normal 0.0-0.4 [facility] Comment on above: Performed By: #### C BCA, BMP #### [facility] ([id number]) [address] [place] [address] 87006 Eosinophils/100 WBC (Bld) 4.0 % Normal [facility] Comment on above: Performed By: #### C SOWMYA, BMP #### [facility] ([id number]) [address] [place] [address] 13488 Erythrocyte distribution width (RBC) [Ratio] 18.5 % High 11.5-15.0 [facility] Comment on above: Performed By: #### C SOWMYA, BMP #### [facility] ([id number]) [address] [place] [address] 33986 Hematocrit (Bld) [Volume fraction] 28.4 % Low 35-47 [facility] Comment on above: Performed By: #### C SOWMYA, BMP #### [facility] ([id number]) [address] [place] [address] 74155 Hemoglobin (Bld) [Mass/Vol] 9.4 g/dL Low 11.7-15.5 [facility] Comment on above: Performed By: #### C SOWMYA, BMP #### [facility] ([id number]) [address] [place] [address] 08941 Lymphocytes (Bld) [#/Vol] 3.3 10*3/uL Normal 1.0-3.5 [facility] Comment on above: Performed By: #### C SOWMYA, BMP #### [facility] ([id number]) [address] [place] [address] 28315 Lymphocytes/100 WBC (Bld) 37.1 % Normal [facility] Comment on above: Performed By: #### C SOWMYA, BMP #### [facility] ([id number]) [address] [place] [address] 08805 MCH (RBC) [Entitic mass] 24.9 pg Low 27-34 [facility] Comment on above: Performed By: #### C SOWMYA, BMP #### [facility] ([id number]) [address] [place] [address] 01304 MCHC (RBC) [Mass/Vol] 33.0 g/dL Normal 32-36 [facility] Comment on above: Performed By: #### C SOWMYA, BMP #### [facility] ([id number]) [address] [place] [address] 58791 MCV (RBC) [Entitic vol] 76 fL Low 80-100 [facility] Comment on above: Performed By: #### C SOWMYA, BMP #### [facility] ([id number]) [address] [place] [address] 83444 Monocytes (Bld) [#/Vol] 1.0 10*3/uL High 0-0.9 [facility] Comment on above: Performed By: #### C SOWMYA, BMP #### [facility] ([id number]) [address] [place] [address] 53725 Monocytes/100 WBC (Bld) 10.9 % Normal [facility] Comment on above: Performed By: #### C SOWMYA, BMP #### [facility] ([id number]) [address] [place] [address] 38923 Neutrophils/100 WBC (Bld) 46.9 % Normal [facility] Comment on above: Performed By: #### C SOWMYA, BMP #### [facility] ([id number]) [address] [place] [address] 60567 Platelet mean volume (Bld) [Entitic vol] 6.7 fL Low 7-12 [facility] Comment on above: Performed By: #### C SOWMYA, BMP #### [facility] ([id number]) [address] [place] [address] 28753 Platelets (Bld) [#/Vol] 367 10*3/uL Normal 150-450 [facility] Comment on above: Performed By: #### C SOWMYA, BMP #### [facility] ([id number]) [address] [place] [address] 87502 RBC COUNT 3.76 X10E12/L Low 3.80-5.20 [facility] Comment on above: Performed By: #### C SOWMYA, BMP #### [facility] ([id number]) [address] [place] [address] 64358 WBC (Bld) [#/Vol] 9.0 10*3/uL Normal 4.0-11.0 [facility] Comment on above: Performed By: #### C SOWMYA, BMP #### [facility] ([id number]) [address] [place] [address] 42789 CREATININEon 04-08-2024 Creatinine [Mass/Vol] 1.09 mg/dL High 0.40-1.00 [facility] Comment on above: Result Comment: METH OD TRACEABLE TO IDMS STANDARD Performed By: #### C SOWMYA, BMP #### [facility] ([id number]) [address] [place] [address] 92912 GFR/1.73 sq M.predicted among non-blacks MDRD (S/P/Bld) [Vol rate/Area] 52 mL/min/{1.73_m2} Low >59 [facility] Comment on above: Result Comment: Reported eGFR is based on the CKD-EPI 2020 equation that does not use a race coefficient. Performed By: #### C SOWMYA, BMP #### [facility] ([id number]) [address] [place] [address] 08750 ELECTROLYTESon 04-08-2024 Anion gap [Moles/Vol] 8 mmol/L Normal 5-15 [facility] Comment on above: Performed By: #### C SOWMYA, BMP #### [facility] ([id number]) [address] [place] [address] 96861 Chloride [Moles/Vol] 107 mmol/L Normal 98-109 [facility] Comment on above: Performed By: #### C SOWMYA, BMP #### [facility] ([id number]) [address] [place] [address] 77578 CO2 [Moles/Vol] 24 mmol/L Normal 22-32 [facility] Comment on above: Performed By: #### C SOWMYA, BMP #### [facility] ([id number]) [address] [place] [address] 13306 Potassium [Moles/Vol] 3.8 mmol/L Normal 3.5-5.0 [facility] Comment on above: Performed By: #### C SOWMYA, BMP #### [facility] ([id number]) [address] [place] [address] 56406 Sodium [Moles/Vol] 139 mmol/L Normal 134-146 [facility] Comment on above: Performed By: #### C SOWMYA, BMP #### [facility] ([id number]) [address] [place] [address] 43209 BLOOD UREA NITROGENon 2023 Urea nitrogen [Mass/Vol] 20 mg/dL Normal 5-27 [facility] Comment on above: Performed By: #### C SOWMYA, BMP #### [facility] ([id number]) [address] [place] [address] 29380 CBC AND AUTO DIFFon 04-02-20 24 ABSOLUTE BASOPHIL 0.1 X10E9/L Normal 0.0-0.2 [facility] Comment on above: Performed By: #### C SOWMYA, BMP #### [facility] ([id number]) [address] [place] [address] 31721 ABSOLUTE NEUTROPHIL 4.8 X10E9/L Normal 1.5-6.6 [facility] Comment on above: Performed By: #### C SOWMYA, BMP #### [facility] ([id number]) [address] [place] [address] 04690 Basophils/100 WBC (Bld) 0.7 % Normal [facility] Comment on above: Performed By: #### C SOWMYA, BMP #### [facility] ([id number]) [address] [place] [address] 56306 Eosinophils (Bld) [#/Vol] 0.2 10*3/uL Normal 0.0-0.4 [facility] Comment on above: Performed By: #### C SOWMYA, BMP #### [facility] ([id number]) [address] [place] [address] 31970 Eosinophils/100 WBC (Bld) 2.5 % Normal [facility] Comment on above: Performed By: #### C SOWMYA, BMP #### [facility] ([id number]) [address] [place] [address] 69029 Erythrocyte distribution width (RBC) [Ratio] 18.6 % High 11.5-15.0 [facility] Comment on above: Performed By: #### C SOWMYA, BMP #### [facility] ([id number]) [address] [place] [address] 42443 Hematocrit (Bld) [Volume fraction] 28.2 % Low 35-47 [facility] Comment on above: Performed By: #### C SOWMYA, BMP #### [facility] ([id number]) [address] [place] [address] 26063 Hemoglobin (Bld) [Mass/Vol] 9.1 g/dL Low 11.7-15.5 [facility] Comment on above: Performed By: #### C SOWMYA, BMP #### [facility] ([id number]) [address] [place] [address] 31646 Lymphocytes (Bld) [#/Vol] 3.2 10*3/uL Normal 1.0-3.5 [facility] Comment on above: Performed By: #### C SOWMYA, BMP #### [facility] ([id number]) [address] [place] [address] 03198 Lymphocytes/100 WBC (Bld) 34.4 % Normal [facility] Comment on above: Performed By: #### C SOWMYA, BMP #### [facility] ([id number]) [address] [place] [address] 02309 MCH (RBC) [Entitic mass] 24.5 pg Low 27-34 [facility] Comment on above: Performed By: #### C BCA, BMP #### [facility] ([id number]) [address] [place] [address] 65148 MCHC (RBC) [Mass/Vol] 32.4 g/dL Normal 32-36 [facility] Comment on above: Performed By: #### C SOWMYA, BMP #### [facility] ([id number]) [address] [place] [address] 12032 MCV (RBC) [Entitic vol] 76 fL Low 80-100 [facility] Comment on above: Performed By: #### C SOWMYA, BMP #### [facility] ([id number]) [address] [place] [address] 27879 Monocytes (Bld) [#/Vol] 1.0 10*3/uL High 0-0.9 [facility] Comment on above: Performed By: #### C BCA, BMP #### [facility] ([id number]) [address] [place] [address] 76015 Monocytes/100 WBC (Bld) 11.1 % Normal [facility] Comment on above: Performed By: #### C BCA, BMP #### [facility] ([id number]) [address] [place] [address] 54166 Neutrophils/100 WBC (Bld) 51.3 % Normal [facility] Comment on above: Performed By: #### C BCA, BMP #### [facility] ([id number]) [address] [place] [address] 64350 Platelet mean volume (Bld) [Entitic vol] 6.9 fL Low 7-12 [facility] Comment on above: Performed By: #### Timmy DENG, BMP #### [facility] ([id number]) [address] [place] [address] 85456 Platelets (Bld) [#/Vol] 319 10*3/uL Normal 150-450 [facility] Comment on above: Performed By: #### C SOWMYA, BMP #### [facility] ([id number]) [address] [place] [address] 89682 RBC COUNT 3.72 X10E12/L Low 3.80-5.20 [facility] Comment on above: Performed By: #### Timmy DENG, BMP #### [facility] ([id number]) [address] [place] [address] 57726 WBC (Bld) [#/Vol] 9.4 10*3/uL Normal 4.0-11.0 [facility] Comment on above: Performed By: #### Timmy DENG, BMP #### [facility] ([id number]) [address] [place] [address] 69879 CREATININEon 04-02-2024 Creatinine [Mass/Vol] 1.13 mg/dL High 0.40-1.00 [facility] Comment on above: Result Comment: METH OD TRACEABLE TO IDMS STANDARD Performed By: #### Timmy DENG, BMP #### [facility] ([id number]) [address] [place] [address] 08253 GFR/1.73 sq M.predicted among non-blacks MDRD (S/P/Bld) [Vol rate/Area] 50 mL/min/{1.73_m2} Low >59 [facility] Comment on above: Result Comment: Reported eGFR is based on the CKD-EPI 2020 equation that does not use a race coefficient. Performed By: #### C BCA, BMP #### [facility] ([id number]) [address] [place] [address] 76505 ELECTROLYTESon 04-02-2024 Anion gap [Moles/Vol] 7 mmol/L Normal 5-15 [facility] Comment on above: Performed By: #### C BCA, BMP #### [facility] ([id number]) [address] [place] [address] 38760 Chloride [Moles/Vol] 107 mmol/L Normal 98-109 [facility] Comment on above: Performed By: #### C BCA, BMP #### [facility] ([id number]) [address] [place] [address] 87859 CO2 [Moles/Vol] 25 mmol/L Normal 22-32 [facility] Comment on above: Performed By: #### C BCA, BMP #### [facility] ([id number]) [address] [place] [address] 31519 Potassium [Moles/Vol] 4.1 mmol/L Normal 3.5-5.0 [facility] Comment on above: Performed By: #### C BCA, BMP #### [facility] ([id number]) [address] [place] [address] 71498 Sodium [Moles/Vol] 139 mmol/L Normal 134-146 [facility] Comment on above: Performed By: #### C BCA, BMP #### [facility] ([id number]) [address] [place] [address] 67448 BASIC METABOLIC PANLon 03-30 Anion gap [Moles/Vol] 8 mmol/L Normal 5-15 [facility] Comment on above: Performed By: #### C BCA, BMP #### [facility] ([id number]) [address] [place] [address] 18741 Calcium [Mass/Vol] 9.1 mg/dL Normal 8.5-10.5 [facility] Comment on above: Performed By: #### C SOWMYA, BMP #### [facility] ([id number]) [address] [place] [address] 57522 Chloride [Moles/Vol] 104 mmol/L Normal 98-109 [facility] Comment on above: Performed By: #### C SOWMYA, BMP #### [facility] ([id number]) [address] [place] [address] 06069 CO2 [Moles/Vol] 26 mmol/L Normal 22-32 [facility] Comment on above: Performed By: #### C SOWMYA, BMP #### [facility] ([id number]) [address] [place] [address] 53293 Creatinine [Mass/Vol] 1.14 mg/dL High 0.40-1.00 [facility] Comment on above: Result Comment: METH OD TRACEABLE TO IDMS STANDARD Performed By: #### C SOWMYA, BMP #### [facility] ([id number]) [address] [place] [address] 34682 GFR/1.73 sq M.predicted among non-blacks MDRD (S/P/Bld) [Vol rate/Area] 49 mL/min/{1.73_m2} Low >59 [facility] Comment on above: Result Comment: Reported eGFR is based on the CKD-EPI 1 equation that does not use a race coefficient. Performed By: #### C SOWMYA, BMP #### [facility] ([id number]) [address] [place] [address] 22976 Glucose [Mass/Vol] 101 mg/dL High 65-99 [facility] Comment on above: Performed By: #### C BCA, BMP #### [facility] ([id number]) [address] [place] [address] 47879 Potassium [Moles/Vol] 4.2 mmol/L Normal 3.5-5.0 [facility] Comment on above: Performed By: #### C SOWMYA, BMP #### [facility] ([id number]) [address] [place] [address] 71249 Sodium [Moles/Vol] 138 mmol/L Normal 134-146 [facility] Comment on above: Performed By: #### C SOWMYA, BMP #### [facility] ([id number]) [address] [place] [address] 43492 Urea nitrogen [Mass/Vol] 21 mg/dL Normal 5-27 [facility] Comment on above: Performed By: #### C SOWMYA, BMP #### [facility] ([id number]) [address] [place] [address] 26700 CBC AND AUTO DIFFon 03-18-20 24 ABSOLUTE BASOPHIL 0.1 X10E9/L Normal 0.0-0.2 [facility] Comment on above: Performed By: #### C SOWMYA, BMP #### [facility] ([id number]) [address] [place] [address] 89700 ABSOLUTE NEUTROPHIL 4.5 X10E9/L Normal 1.5-6.6 [facility] Comment on above: Performed By: #### C SOWMYA, BMP #### [facility] ([id number]) [address] [place] [address] 25744 Basophils/100 WBC (Bld) 0.7 % Normal [facility] Comment on above: Performed By: #### C SOWMYA, BMP #### [facility] ([id number]) [address] [place] [address] 56335 Eosinophils (Bld) [#/Vol] 0.4 10*3/uL Normal 0.0-0.4 [facility] Comment on above: Performed By: #### C SOWMYA, BMP #### [facility] ([id number]) [address] [place] [address] [place] [address] Eosinophils/100 WBC (Bld) 4.1 % Normal [facility] Comment on above: Performed By: #### C SOWMYA, BMP #### [facility] ([id number]) [address] [place] [address] 25269 Erythrocyte distribution width (RBC) [Ratio] 18.8 % High 11.5-15.0 [facility] Comment on above: Performed By: #### C SOWMYA, BMP #### [facility] ([id number]) [address] [place] [address] 71392 Hematocrit (Bld) [Volume fraction] 28.0 % Low 35-47 [facility] Comment on above: Performed By: #### Timmy DENG, BMP #### [facility] ([id number]) [address] [place] [address] 57293 Hemoglobin (Bld) [Mass/Vol] 9.1 g/dL Low 11.7-15.5 [facility] Comment on above: Performed By: #### C SOWMYA, BMP #### [facility] ([id number]) [address] [place] [address] 54708 Lymphocytes (Bld) [#/Vol] 2.9 10*3/uL Normal 1.0-3.5 [facility] Comment on above: Performed By: #### C SOWMYA, BMP #### [facility] ([id number]) [address] [place] [address] 45342 Lymphocytes/100 WBC (Bld) 33.2 % Normal [facility] Comment on above: Performed By: #### C SOWMYA, BMP #### [facility] ([id number]) [address] [place] [address] 72915 MCH (RBC) [Entitic mass] 24.4 pg Low 27-34 [facility] Comment on above: Performed By: #### C SOWMYA, BMP #### [facility] ([id number]) [address] [place] [address] 84056 MCHC (RBC) [Mass/Vol] 32.3 g/dL Normal 32-36 [facility] Comment on above: Performed By: #### Timmy DENG, BMP #### [facility] ([id number]) [address] [place] [address] 74394 MCV (RBC) [Entitic vol] 76 fL Low 80-100 [facility] Comment on above: Performed By: #### C SOWMYA, BMP #### [facility] ([id number]) [address] [place] [address] 53130 Monocytes (Bld) [#/Vol] 0.8 10*3/uL Normal 0-0.9 [facility] Comment on above: Performed By: #### Timmy DENG, BMP #### [facility] ([id number]) [address] [place] [address] 30599 Monocytes/100 WBC (Bld) 9.4 % Normal [facility] Comment on above: Performed By: #### Timmy DENG, BMP #### [facility] ([id number]) [address] [place] [address] 39614 Neutrophils/100 WBC (Bld) 52.6 % Normal [facility] Comment on above: Performed By: #### Timmy DENG, BMP #### [facility] ([id number]) [address] [place] [address] 98132 Platelet mean volume (Bld) [Entitic vol] 6.8 fL Low 7-12 [facility] Comment on above: Performed By: #### C SOWMYA, BMP #### [facility] ([id number]) [address] [place] [address] 05718 Platelets (Bld) [#/Vol] 405 10*3/uL Normal 150-450 [facility] Comment on above: Performed By: #### C SOWMYA, BMP #### [facility] ([id number]) [address] [place] [address] 88203 RBC COUNT 3.71 X10E12/L Low 3.80-5.20 [facility] Comment on above: Performed By: #### C SOWMYA, BMP #### [facility] ([id number]) [address] [place] [address] 26685 WBC (Bld) [#/Vol] 8.6 10*3/uL Normal 4.0-11.0 [facility] Comment on above: Performed By: #### C SOWMYA, BMP #### [facility] ([id number]) [address] [place] [address] 09432 BLOOD UREA NITROGENon 2023 Urea nitrogen [Mass/Vol] 14 mg/dL Normal 5-27 [facility] Comment on above: Performed By: #### C SOWMYA, BMP #### [facility] ([id number]) [address] [place] [address] 73498 CBC AND AUTO DIFFon 03-11-20 ABSOLUTE BASOPHIL 0.1 X10E9/L Normal 0.0-0.2 [facility] Comment on above: Performed By: #### C SOWMYA, BMP #### [facility] ([id number]) [address] [place] [address] 44644 ABSOLUTE NEUTROPHIL 6.8 X10E9/L High 1.5-6.6 [facility] Comment on above: Performed By: #### C SOWMYA, BMP #### [facility] ([id number]) [address] [place] [address] 44318 Basophils/100 WBC (Bld) 0.6 % Normal [facility] Comment on above: Performed By: #### C SOWMYA, BMP #### [facility] ([id number]) [address] [place] [address] 76279 Eosinophils (Bld) [#/Vol] 0.4 10*3/uL Normal 0.0-0.4 [facility] Comment on above: Performed By: #### Timmy DENG, BMP #### [facility] ([id number]) [address] [place] [address] 86267 Eosinophils/100 WBC (Bld) 3.7 % Normal [facility] Comment on above: Performed By: #### Timmy DENG, BMP #### [facility] ([id number]) [address] [place] [address] 47207 Erythrocyte distribution width (RBC) [Ratio] 18.8 % High 11.5-15.0 [facility] Comment on above: Performed By: #### Timmy DENG, BMP #### [facility] ([id number]) [address] [place] [address] 62206 Hematocrit (Bld) [Volume fraction] 27.4 % Low 35-47 [facility] Comment on above: Performed By: #### Timmy DENG, BMP #### [facility] ([id number]) [address] [place] [address] 24030 Hemoglobin (Bld) [Mass/Vol] 8.8 g/dL Low 11.7-15.5 [facility] Comment on above: Performed By: #### C SOWMYA, BMP #### [facility] ([id number]) [address] [place] [address] 52826 Lymphocytes (Bld) [#/Vol] 3.3 10*3/uL Normal 1.0-3.5 [facility] Comment on above: Performed By: #### Timmy DENG, BMP #### [facility] ([id number]) [address] [place] [address] 67768 Lymphocytes/100 WBC (Bld) 27.7 % Normal [facility] Comment on above: Performed By: #### Timmy DENG, BMP #### [facility] ([id number]) [address] [place] [address] 92924 MCH (RBC) [Entitic mass] 24.7 pg Low 27-34 [facility] Comment on above: Performed By: #### Timmy DENG, BMP #### [facility] ([id number]) [address] [place] [address] 17883 MCHC (RBC) [Mass/Vol] 32.3 g/dL Normal 32-36 [facility] Comment on above: Performed By: #### C SOWMYA, BMP #### [facility] ([id number]) [address] [place] [address] 08019 MCV (RBC) [Entitic vol] 77 fL Low 80-100 [facility] Comment on above: Performed By: #### Timmy DENG, BMP #### [facility] ([id number]) [address] [place] [address] 29578 Monocytes (Bld) [#/Vol] 1.2 10*3/uL High 0-0.9 [facility] Comment on above: Performed By: #### Timmy DENG, BMP #### [facility] ([id number]) [address] [place] [address] 71874 Monocytes/100 WBC (Bld) 10.4 % Normal [facility] Comment on above: Performed By: #### Timmy DENG, BMP #### [facility] ([id number]) [address] [place] [address] 14577 Neutrophils/100 WBC (Bld) 57.6 % Normal [facility] Comment on above: Performed By: #### Timmy DENG, BMP #### [facility] ([id number]) [address] [place] [address] 80676 Platelet mean volume (Bld) [Entitic vol] 7.3 fL Normal 7-12 [facility] Comment on above: Performed By: #### Timmy DENG, BMP #### [facility] ([id number]) [address] [place] [address] 13406 Platelets (Bld) [#/Vol] 255 10*3/uL Normal 150-450 [facility] Comment on above: Performed By: #### C SOWMYA, BMP #### [facility] ([id number]) [address] [place] [address] 60267 RBC COUNT 3.58 X10E12/L Low 3.80-5.20 [facility] Comment on above: Performed By: #### C SOWMYA, BMP #### [facility] ([id number]) [address] [place] [address] 73854 WBC (Bld) [#/Vol] 11.8 10*3/uL High 4.0-11.0 [facility] Comment on above: Performed By: #### C SOWMYA, BMP #### [facility] ([id number]) [address] [place] [address] 77052 CREATININEon 03-11-2024 Creatinine [Mass/Vol] 1.09 mg/dL High 0.40-1.00 [facility] Comment on above: Result Comment: METH OD TRACEABLE TO IDMS STANDARD Performed By: #### C SOWMYA, BMP #### [facility] ([id number]) [address] [place] [address] 05871 GFR/1.73 sq M.predicted among non-blacks MDRD (S/P/Bld) [Vol rate/Area] 52 mL/min/{1.73_m2} Low >59 [facility] Comment on above: Result Comment: Reported eGFR is based on the CKD-EPI 2020 equation that does not use a race coefficient. Performed By: #### Timmy DENG, BMP #### [facility] ([id number]) [address] [place] [address] 59392 ELECTROLYTESon 03-11-2024 Anion gap [Moles/Vol] 7 mmol/L Normal 5-15 [facility] Comment on above: Performed By: #### E LEC, 3094-0, INTERVENTIONAL RADIOLOGY TECHNOLOGIST, CBCA #### [facility] ([id number]) [address] [place] [address] 43876 Chloride [Moles/Vol] 106 mmol/L Normal 98-109 [facility] Comment on above: Performed By: #### E LEC, 3094-0, INTERVENTIONAL RADIOLOGY TECHNOLOGIST, CBCA #### [facility] ([id number]) [address] [place] [address] 71663 CO2 [Moles/Vol] 27 mmol/L Normal 22-32 [facility] Comment on above: Performed By: #### E LEC, 3094-0, INTERVENTIONAL RADIOLOGY TECHNOLOGIST, CBCA #### [facility] ([id number]) [address] [place] [address] 30810 Potassium [Moles/Vol] 4.2 mmol/L Normal 3.5-5.0 [facility] Comment on above: Performed By: #### E LEC, 3094-0, INTERVENTIONAL RADIOLOGY TECHNOLOGIST, CBCA #### [facility] ([id number]) [address] [place] [address] 12324 Sodium [Moles/Vol] 140 mmol/L Normal 134-146 [facility] Comment on above: Performed By: #### E LEC, 3094-0, INTERVENTIONAL RADIOLOGY TECHNOLOGIST, CBCA #### [facility] ([id number]) [address] [place] [address] 58728 CBC AND AUTO DIFFon 03-05-20 24 ABSOLUTE BASOPHIL 0.1 X10E9/L Normal 0.0-0.2 [facility] Comment on above: Performed By: #### C BCA #### [facility] ([id number]) [address] [place] [address] 14782 #### 05772-2 #### [facility] ([id number]) [address] [place] [address], [address] [place] [address] ABSOLUTE NEUTROPHIL 6.2 X10E9/L Normal 1.5-6.6 [facility] Comment on above: Performed By: #### C BCA #### [facility] ([id number]) [address] [place] [address] 66372 #### 76005-5 #### [facility] ([id number]) [address], [address] [place] [address] Basophils/100 WBC (Bld) 0.6 % Normal [facility] Comment on above: Performed By: #### C BCA #### [facility] ([id number]) [address] [place] [address] 25200 #### 32760-2 #### [facility] ([id number]) [address] [place] [address] Eosinophils (Bld) [#/Vol] 0.3 10*3/uL Normal 0.0-0.4 [facility] Comment on above: Performed By: #### C BCA #### [facility] ([id number]) [address] [place] [address] 90427 #### 13171-5 #### [facility] ([id number]) [address], [address] [place] [address] Eosinophils/100 WBC (Bld) 2.4 % Normal [facility] Comment on above: Performed By: #### C BCA #### [facility] ([id number]) [address] [place] [address] 27543 #### 83450-8 #### [facility] ([id number]) [address], [address] [place] [address] Erythrocyte distribution width (RBC) [Ratio] 18.9 % High 11.5-15.0 [facility] Comment on above: Performed By: #### C BCA #### [facility] ([id number]) [address] [place] [address] 52732 #### 58979-3 #### [facility] ([id number]) [address], [address] [place] [address] Hematocrit (Bld) [Volume fraction] 30.3 % Low 35-47 [facility] Comment on above: Performed By: #### C BCA #### [facility] ([id number]) [address] [place] [address] 59912 #### 59019-4 #### [facility] ([id number]) [address] [facility] [facility], [address] [place] [address] Hemoglobin (Bld) [Mass/Vol] 9.7 g/dL Low 11.7-15.5 [facility] Comment on above: Performed By: #### C BCA #### [facility] ([id number]) [address] [place] [address] 99485 #### 54368-9 #### [facility] ([id number]) [address] [place] [address] Lymphocytes (Bld) [#/Vol] 3.8 10*3/uL High 1.0-3.5 [facility] Comment on above: Performed By: #### C BCA #### [facility] ([id number]) [address] [place] [address] 26359 #### 98903-7 #### [facility] ([id number]) [address], [address] [place] [address] Lymphocytes/100 WBC (Bld) 32.9 % Normal [facility] Comment on above: Performed By: #### C BCA #### [facility] ([id number]) [address] [place] [address] 55472 #### 99623-0 #### [facility] ([id number]) [address], [address] [place] [address] MCH (RBC) [Entitic mass] 24.6 pg Low 27-34 [facility] Comment on above: Performed By: #### C BCA #### [facility] ([id number]) [address] [place] [address] 50402 #### 45297-3 #### [facility] ([id number]) [address] [place] [address] MCHC (RBC) [Mass/Vol] 32.1 g/dL Normal 32-36 [facility] Comment on above: Performed By: #### C BCA #### [facility] ([id number]) [address] [place] [address] 67556 #### 71074-8 #### [facility] ([id number]) [address] [place] [address] MCV (RBC) [Entitic vol] 77 fL Low 80-100 [facility] Comment on above: Performed By: #### C BCA #### [facility] ([id number]) [address] [place] [address] 64347 #### 32260-4 #### [facility] ([id number]) [address], [address] [place] [address] Monocytes (Bld) [#/Vol] 1.3 10*3/uL High 0-0.9 [facility] Comment on above: Performed By: #### C BCA #### [facility] ([id number]) [address] [place] [address] 44721 #### 16070-9 #### [facility] ([id number]) [address], [address] [place] [address] Monocytes/100 WBC (Bld) 11.0 % Normal [facility] Comment on above: Performed By: #### C BCA #### [facility] ([id number]) [address] [place] [address] 85400 #### [id number] #### [facility] ([id number]) [address], [address] [place] [address] Neutrophils/100 WBC (Bld) 53.1 % Normal [facility] Comment on above: Performed By: #### C BCA #### [facility] ([id number]) [address] [place] [address] 01132 #### [id number] #### [facility] ([id number]) [address] [place] [address] Platelet mean volume (Bld) [Entitic vol] 7.5 fL Normal 7-12 [facility] Comment on above: Performed By: #### C BCA #### [facility] ([id number]) [address] [place] [address] 18994 #### [id number] #### [facility] ([id number]) [address] [place] [address] Platelets (Bld) [#/Vol] 320 10*3/uL Normal 150-450 [facility] Comment on above: Performed By: #### C BCA #### [facility] ([id number]) [address] [place] [address] 34187 #### [id number] #### [facility] ([id number]) [address] [place] [address] RBC COUNT 3.96 X10E12/L Normal 3.80-5.20 [facility] Comment on above: Performed By: #### C BCA #### [facility] ([id number]) [address] [place] [id number] #### [id number] #### [facility] ([id number]) [address] [facility], [address] [place] [address] 48526 WBC (Bld) [#/Vol] 11.7 10*3/uL High 4.0-11.0 [facility] Comment on above: Performed By: #### C BCA #### [facility] ([id number]) [address] [place] [address] 67802 #### [id number] #### [facility] ([id number]) [address] [place] [address], [address] [place] [address] 22876 ESR Photometric method (Bld) [Velocity]on 03-05-2024 ESR, ERYTHROCYTE SEDIMENTATION RATE 43 mm/h High 0-30 [facility] Comment on above: Performed By: #### C BCA #### [facility] ([id number]) [address] [place] [address] 03648 #### [id number] #### [facility] ([id number]) [address] [place] [address], [address] [address] [place] SWALLOW MOTILITY FUNCTION on 03-04-2024 FL [...] Dowell MD on 03/04/2024 10:58 AM Normal [facility] URINALYSISon 03-03-2024 Bilirubin Ql (U) Negative Normal NEG [facility] Comment on above: Performed By: #### U A #### [facility] ([id number]) [address] [place] [address] 06692 BLOOD/HGB Negative Normal NEG [facility] Comment on above: Performed By: #### U A #### [facility] ([id number]) [address] [place] [address] 48634 Color (U) YELLOW Normal YELLOW [facility] Comment on above: Performed By: #### U A #### [facility] ([id number]) [address] [place] [address] 98865 Glucose Ql (U) Negative Normal NEG [facility] Comment on above: Performed By: #### U A #### [facility] ([id number]) [address] [place] [address] 33408 Ketones Ql (U) Negative Normal NEG [facility] Comment on above: Performed By: #### U A #### [facility] ([id number]) [address] [place] [address] 32017 Leukocyte esterase Test strip Ql (U) Negative Normal NEG [facility] Comment on above: Performed By: #### U A #### [facility] ([id number]) [address] [place] [address] 36388 Nitrite Ql (U) Negative Normal NEG [facility] Comment on above: Performed By: #### U A #### [facility] ([id number]) [address] [place] [address] 66943 pH (U) 6.0 [pH] Normal 5.0-8.5 [facility] Comment on above: Performed By: #### U A #### [facility] ([id number]) [address] [place] [address] 46371 Protein Ql (U) Negative Normal NEG [facility] Comment on above: Performed By: #### U A #### [facility] ([id number]) [address] [place] [address] 64601 Specific gravity (U) [Rel density] 1.020 Normal 1.003-1.03 5 [facility] Comment on above: Performed By: #### U A #### [facility] ([id number]) [address] [place] [address] 23200 TURBIDITY CLEAR Normal CLEAR [facility] Comment on above: Performed By: #### U A #### [facility] ([id number]) [address] [place] [address] 56577 Urobilinogen Qn (U) 0.2 {Jose'U}/dL Normal <1.1 [facility] Comment on above: Performed By: #### U A #### [facility] ([id number]) [address] [place] [address] 65499 URINE CULTUREon 03-03-2024 Bacteria identified Cx Nom (U) CULTURE RESULTS NO GROWTH AT <1000 CFU/mL Normal [facility] Comment on above: Performed By: #### 6 30-4 #### [facility] ([id number]) [address] [facility], [address] [place] [address] BASIC METABOLIC PANLon 03-02 Anion gap [Moles/Vol] 9 mmol/L Normal 5-15 [facility] Comment on above: Performed By: #### C BCA, BMP #### [facility] ([id number]) [address] [place] [address] 05523 Calcium [Mass/Vol] 8.4 mg/dL Low 8.5-10.5 [facility] Comment on above: Performed By: #### C BCA, BMP #### [facility] ([id number]) [address] [place] [address] 56408 Chloride [Moles/Vol] 106 mmol/L Normal 98-109 [facility] Comment on above: Performed By: #### C BCA, BMP #### [facility] ([id number]) [address] [place] [address] 63112 CO2 [Moles/Vol] 27 mmol/L Normal 22-32 [facility] Comment on above: Performed By: #### C BCA, BMP #### [facility] ([id number]) [address] [place] [address] 59019 Creatinine [Mass/Vol] 1.13 mg/dL High 0.40-1.00 [facility] Comment on above: Result Comment: METH OD TRACEABLE TO IDMS STANDARD Performed By: #### C SOWMYA, BMP #### [facility] ([id number]) [address] [place] [address] 40540 GFR/1.73 sq M.predicted among non-blacks MDRD (S/P/Bld) [Vol rate/Area] 50 mL/min/{1.73_m2} Low >59 [facility] Comment on above: Result Comment: Reported eGFR is based on the CKD-EPI 1 equation that does not use a race coefficient. Performed By: #### C BCA, BMP #### [facility] ([id number]) [address] [place] [address] 56278 Glucose [Mass/Vol] 106 mg/dL High 65-99 [facility] Comment on above: Performed By: #### C BCA, BMP #### [facility] ([id number]) [address] [place] [address] 93013 Potassium [Moles/Vol] 3.4 mmol/L Low 3.5-5.0 [facility] Comment on above: Performed By: #### C BCA, BMP #### [facility] ([id number]) [address] [place] [address] 63335 Sodium [Moles/Vol] 142 mmol/L Normal 134-146 [facility] Comment on above: Performed By: #### C SOWMYA, BMP #### [facility] ([id number]) [address] [place] [address] 96819 Urea nitrogen [Mass/Vol] 35 mg/dL High 5-27 [facility] Comment on above: Performed By: #### C SOWMYA, BMP #### [facility] ([id number]) [address] [place] [address] 43552 CBC AND AUTO DIFFon 03-02-20 24 ABSOLUTE BASOPHIL 0.1 X10E9/L Normal 0.0-0.2 [facility] Comment on above: Performed By: #### C SOWMYA, BMP #### [facility] ([id number]) [address] [place] [address] 13718 ABSOLUTE NEUTROPHIL 7.0 X10E9/L High 1.5-6.6 [facility] Comment on above: Performed By: #### C SOWMYA, BMP #### [facility] ([id number]) [address] [place] [address] 07138 Basophils/100 WBC (Bld) 0.6 % Normal [facility] Comment on above: Performed By: #### C SOWMYA, BMP #### [facility] ([id number]) [address] [place] [address] 90233 Eosinophils (Bld) [#/Vol] 0.1 10*3/uL Normal 0.0-0.4 [facility] Comment on above: Performed By: #### C SOWMYA, BMP #### [facility] ([id number]) [address] [place] [address] 75530 Eosinophils/100 WBC (Bld) 0.5 % Normal [facility] Comment on above: Performed By: #### C SOWMYA, BMP #### [facility] ([id number]) [address] [place] [address] 69733 Erythrocyte distribution width (RBC) [Ratio] 18.2 % High 11.5-15.0 [facility] Comment on above: Performed By: #### C SOWMYA, BMP #### [facility] ([id number]) [address] [place] [address] 22631 Hematocrit (Bld) [Volume fraction] 30.8 % Low 35-47 [facility] Comment on above: Performed By: #### C SOWMYA, BMP #### [facility] ([id number]) [address] [place] [address] 46839 Hemoglobin (Bld) [Mass/Vol] 10.0 g/dL Low 11.7-15.5 [facility] Comment on above: Performed By: #### C SOWMYA, BMP #### [facility] ([id number]) [address] [place] [address] 53227 Lymphocytes (Bld) [#/Vol] 4.1 10*3/uL High 1.0-3.5 [facility] Comment on above: Performed By: #### C SOWMYA, BMP #### [facility] ([id number]) [address] [place] [address] 56983 Lymphocytes/100 WBC (Bld) 32.1 % Normal [facility] Comment on above: Performed By: #### C SOWMYA, BMP #### [facility] ([id number]) [address] [place] [address] 70340 MCH (RBC) [Entitic mass] 24.9 pg Low 27-34 [facility] Comment on above: Performed By: #### C SOWMYA, BMP #### [facility] ([id number]) [address] [place] [address] 37575 MCHC (RBC) [Mass/Vol] 32.3 g/dL Normal 32-36 [facility] Comment on above: Performed By: #### C SOWMYA, BMP #### [facility] ([id number]) [address] [place] [address] 64147 MCV (RBC) [Entitic vol] 77 fL Low 80-100 [facility] Comment on above: Performed By: #### C SOWMYA, BMP #### [facility] ([id number]) [address] [place] [address] 87028 Monocytes (Bld) [#/Vol] 1.5 10*3/uL High 0-0.9 [facility] Comment on above: Performed By: #### C SOWMYA, BMP #### [facility] ([id number]) [address] [place] [address] 54058 Monocytes/100 WBC (Bld) 11.5 % Normal [facility] Comment on above: Performed By: #### C SOWMYA, BMP #### [facility] ([id number]) [address] [place] [address] 16447 Neutrophils/100 WBC (Bld) 55.3 % Normal [facility] Comment on above: Performed By: #### C SOWMYA, BMP #### [facility] ([id number]) [address] [place] [address] 13140 Platelet mean volume (Bld) [Entitic vol] 7.4 fL Normal 7-12 [facility] Comment on above: Performed By: #### C SOWMYA, BMP #### [facility] ([id number]) [address] [place] [address] 46040 Platelets (Bld) [#/Vol] 360 10*3/uL Normal 150-450 [facility] Comment on above: Performed By: #### C SOWMYA, BMP #### [facility] ([id number]) [address] [place] [address] 41657 RBC COUNT 4.00 X10E12/L Normal 3.80-5.20 [facility] Comment on above: Performed By: #### C BCA, BMP #### [facility] ([id number]) [address] [place] [address] 29242 WBC (Bld) [#/Vol] 12.7 10*3/uL High 4.0-11.0 [facility] Comment on above: Performed By: #### C BCA, BMP #### [facility] ([id number]) [address] [place] [address] 43474 BASIC METABOLIC PANLon 02-26 Anion gap [Moles/Vol] 8 mmol/L Normal 5-15 [facility] Comment on above: Performed By: #### C BCA, BMP #### [facility] ([id number]) [address] [place] [address] 53333 Calcium [Mass/Vol] 8.7 mg/dL Normal 8.5-10.5 [facility] Comment on above: Performed By: #### C BCA, BMP #### [facility] ([id number]) [address] [place] [address] 86077 Chloride [Moles/Vol] 97 mmol/L Low 98-109 [facility] Comment on above: Performed By: #### C BCA, BMP #### [facility] ([id number]) [address] [place] [address] 75413 CO2 [Moles/Vol] 29 mmol/L Normal 22-32 [facility] Comment on above: Performed By: #### C BCA, BMP #### [facility] ([id number]) [address] [place] [address] 49573 Creatinine [Mass/Vol] 1.22 mg/dL High 0.40-1.00 [facility] Comment on above: Result Comment: METH OD TRACEABLE TO IDMS STANDARD Performed By: #### C BCA, BMP #### [facility] ([id number]) [address] [place] [address] 24487 GFR/1.73 sq M.predicted among non-blacks MDRD (S/P/Bld) [Vol rate/Area] 45 mL/min/{1.73_m2} Low >59 [facility] Comment on above: Result Comment: Reported eGFR is based on the CKD-EPI 2020 equation that does not use a race coefficient. Performed By: #### C BCA, BMP #### [facility] ([id number]) [address] [place] [address] 37896 Glucose [Mass/Vol] 123 mg/dL High 65-99 [facility] Comment on above: Performed By: #### C BCA, BMP #### [facility] ([id number]) [address] [place] [address] 77364 Potassium [Moles/Vol] 4.0 mmol/L Normal 3.5-5.0 [facility] Comment on above: Performed By: #### C BCA, BMP #### [facility] ([id number]) [address] [place] [address] 71166 Sodium [Moles/Vol] 134 mmol/L Normal 134-146 [facility] Comment on above: Performed By: #### C BCA, BMP #### [facility] ([id number]) [address] [place] [address] 49872 Urea nitrogen [Mass/Vol] 35 mg/dL High 5-27 [facility] Comment on above: Performed By: #### C BCA, BMP #### [facility] ([id number]) [address] [place] [address] 98239 CBC AND AUTO DIFFon 02-27-20 24 Eosinophils (Bld) [#/Vol] 0.2 10*3/uL Normal 0.0-0.4 [facility] Comment on above: Performed By: #### C BCA, BMP #### [facility] ([id number]) [address] [place] [address] 68035 Eosinophils/100 WBC (Bld) 1.0 % Normal [facility] Comment on above: Performed By: #### C SOWMYA, BMP #### [facility] ([id number]) [address] [place] [address] 61084 Erythrocyte distribution width (RBC) [Ratio] 18.2 % High 11.5-15.0 [facility] Comment on above: Performed By: #### C SOWMYA, BMP #### [facility] ([id number]) [address] [place] [address] 98606 Hematocrit (Bld) [Volume fraction] 35.1 % Normal 35-47 [facility] Comment on above: Performed By: #### C SOWMYA, BMP #### [facility] ([id number]) [address] [place] [address] 79853 Hemoglobin (Bld) [Mass/Vol] 11.4 g/dL Low 11.7-15.5 [facility] Comment on above: Performed By: #### C SOWMYA, BMP #### [facility] ([id number]) [address] [place] [address] 15402 Lymphocytes (Bld) [#/Vol] 4.0 10*3/uL High 1.0-3.5 [facility] Comment on above: Performed By: #### C SOWMYA, BMP #### [facility] ([id number]) [address] [place] [address] 55325 Lymphocytes/100 WBC (Bld) 21.0 % Normal [facility] Comment on above: Performed By: #### C SOWMYA, BMP #### [facility] ([id number]) [address] [place] [address] 25704 MCH (RBC) [Entitic mass] 24.6 pg Low 27-34 [facility] Comment on above: Performed By: #### C SOWMYA, BMP #### [facility] ([id number]) [address] [place] [address] 46429 MCHC (RBC) [Mass/Vol] 32.5 g/dL Normal 32-36 [facility] Comment on above: Performed By: #### C SOWMYA, BMP #### [facility] ([id number]) [address] [place] [address] 09681 MCV (RBC) [Entitic vol] 76 fL Low 80-100 [facility] Comment on above: Performed By: #### C SOWMYA, BMP #### [facility] ([id number]) [address] [place] [address] 69531 Monocytes (Bld) [#/Vol] 1.4 10*3/uL High 0-0.9 [facility] Comment on above: Performed By: #### C SOWMYA, BMP #### [facility] ([id number]) [address] [place] [address] 51484 Monocytes/100 WBC (Bld) 7.6 % Normal [facility] Comment on above: Performed By: #### C SOWMYA, BMP #### [facility] ([id number]) [address] [place] [address] 85070 MYELOCYTE 1.0 % Normal [facility] Comment on above: Performed By: #### Timmy DENG, BMP #### [facility] ([id number]) [address] [place] [address] 65018 Neutrophils (Bld) [#/Vol] 13.1 10*3/uL High 1.5-6.6 [facility] Comment on above: Performed By: #### Timmy DENG, BMP #### [facility] ([id number]) [address] [place] [address] 87929 Platelet mean volume (Bld) [Entitic vol] 7.2 fL Normal 7-12 [facility] Comment on above: Performed By: #### C SOWMYA, BMP #### [facility] ([id number]) [address] [place] [address] 03816 Platelets (Bld) [#/Vol] 398 10*3/uL Normal 150-450 [facility] Comment on above: Performed By: #### C SOWMYA, BMP #### [facility] ([id number]) [address] [place] [address] 08464 RBC COUNT 4.63 X10E12/L Normal 3.80-5.20 [facility] Comment on above: Performed By: #### C SOWMYA, BMP #### [facility] ([id number]) [address] [place] [address] 92075 SEG NEUTROPHIL 69.4 % Normal [facility] Comment on above: Performed By: #### Timmy DENG, BMP #### [facility] ([id number]) [address] [place] [address] 77783 WBC (Bld) [#/Vol] 18.9 10*3/uL High 4.0-11.0 [facility] Comment on above: Performed By: #### C SOWMYA, BMP #### [facility] ([id number]) [address] [place] [address] 48218 CBC AND AUTO DIFFon 02-25-20 24 Band form neutrophils/100 WBC (Bld) 1.0 % Normal [facility] Comment on above: Performed By: #### E LEC #### [facility] ([id number]) [address] [facility], [address] [place] [address] Erythrocyte distribution width (RBC) [Ratio] 18.4 % High 11.5-15.0 [facility] Comment on above: Performed By: #### E LEC #### [facility] ([id number]) [address] [facility], [address] [place] [address] Hematocrit (Bld) [Volume fraction] 36.0 % Normal 35-47 [facility] Comment on above: Performed By: #### E LEC #### [facility] ([id number]) [address] [place] [address] Hemoglobin (Bld) [Mass/Vol] 11.6 g/dL Low 11.7-15.5 [facility] Comment on above: Performed By: #### E LEC #### [facility] ([id number]) [address], [address] [place] [address] HYPOCHROMIA 1+ Abnormal NONE [facility] Comment on above: Performed By: #### E LEC #### [facility] ([id number]) [address], [address] [place] [address] Lymphocytes (Bld) [#/Vol] 4.6 10*3/uL High 1.0-3.5 [facility] Comment on above: Performed By: #### E LEC #### [facility] ([id number]) [address] [place] [address] Lymphocytes/100 WBC (Bld) 28.0 % Normal [facility] Comment on above: Performed By: #### E LEC #### [facility] ([id number]) [address], [address] [place] [address] MCH (RBC) [Entitic mass] 24.9 pg Low 27-34 [facility] Comment on above: Performed By: #### E LEC #### [facility] ([id number]) [address], [address] [place] [address] MCHC (RBC) [Mass/Vol] 32.3 g/dL Normal 32-36 [facility] Comment on above: Performed By: #### E LEC #### [facility] ([id number]) [address], [address] [place] [address] MCV (RBC) [Entitic vol] 77 fL Low 80-100 [facility] Comment on above: Performed By: #### E LEC #### [facility] ([id number]) [address], [address] [place] [address] Monocytes (Bld) [#/Vol] 1.3 10*3/uL High 0-0.9 [facility] Comment on above: Performed By: #### E LEC #### [facility] ([id number]) [address], [address] [place] [address] Monocytes/100 WBC (Bld) 8.0 % Normal [facility] Comment on above: Performed By: #### E LEC #### [facility] ([id number]) [address], [address] [place] [address] MYELOCYTE 1.0 % Normal [facility] Comment on above: Performed By: #### E LEC #### [facility] ([id number]) [address] [place] [address] Neutrophils (Bld) [#/Vol] 10.2 10*3/uL High 1.5-6.6 [facility] Comment on above: Performed By: #### E LEC #### [facility] ([id number]) [address] [place] [address] Platelet mean volume (Bld) [Entitic vol] 6.8 fL Low 7-12 [facility] Comment on above: Performed By: #### E LEC #### [facility] ([id number]) [address], [address] [place] [address] Platelets (Bld) [#/Vol] 480 10*3/uL High 150-450 [facility] Comment on above: Performed By: #### E LEC #### [facility] ([id number]) [address], [address] [place] [address] RBC COUNT 4.66 X10E12/L Normal 3.80-5.20 [facility] Comment on above: Performed By: #### E LEC #### [facility] ([id number]) [address], [address] [place] [address] SEG NEUTROPHIL 62.0 % Normal [facility] Comment on above: Performed By: #### E LEC #### [facility] ([id number]) [address], [address] [place] [address] WBC (Bld) [#/Vol] 16.3 10*3/uL High 4.0-11.0 [facility] Comment on above: Performed By: #### E LEC #### [facility] ([id number]) [address] [place] [address] COMPREHENSIVE METABOLIC PANE Harsha 02-25-2024 Albumin [Mass/Vol] 2.8 g/dL Low 3.2-5.3 [facility] Comment on above: Performed By: #### E LEC #### [facility] ([id number]) [address] [place] [address] ALP [Catalytic activity/Vol] 61 U/L Normal 39-130 [facility] Comment on above: Performed By: #### E LEC #### [facility] ([id number]) [address] [place] [address] ALT [Catalytic activity/Vol] 16 U/L Normal 0-31 [facility] Comment on above: Performed By: #### E LEC #### [facility] ([id number]) [address] [place] [address] Anion gap [Moles/Vol] 8 mmol/L Normal 5-15 [facility] Comment on above: Performed By: #### E LEC #### [facility] ([id number]) [address] [place] [address] AST [Catalytic activity/Vol] 20 U/L Normal 0-41 [facility] Comment on above: Performed By: #### E LEC #### [facility] ([id number]) [address] [place] [address] Bilirubin [Mass/Vol] 0.3 mg/dL Normal 0.3-1.2 [facility] Comment on above: Performed By: #### E LEC #### [facility] ([id number]) [address] [address] [place] [address] Calcium [Mass/Vol] 9.1 mg/dL Normal 8.5-10.5 [facility] Comment on above: Performed By: #### E LEC #### [facility] ([id number]) [address] [address] [place] [address] Chloride [Moles/Vol] 101 mmol/L Normal 98-109 [facility] Comment on above: Performed By: #### E LEC #### [facility] ([id number]) [address] [address] [place] [address] CO2 [Moles/Vol] 29 mmol/L Normal 22-32 [facility] Comment on above: Performed By: #### E LEC #### [facility] ([id number]) [address] [address] [place] [address] Creatinine [Mass/Vol] 1.16 mg/dL High 0.40-1.00 [facility] Comment on above: Result Comment: METH OD TRACEABLE TO IDMS STANDARD Performed By: #### E LEC #### [facility] ([id number]) [address], [address] [place] [address] GFR/1.73 sq M.predicted among non-blacks MDRD (S/P/Bld) [Vol rate/Area] 48 mL/min/{1.73_m2} Low >59 [facility] Comment on above: Result Comment: Reported eGFR is based on the CKD-EPI 2020 equation that does not use a race coefficient. Performed By: #### E LEC #### [facility] ([id number]) [address], [address] [place] [address] Glucose [Mass/Vol] 73 mg/dL Normal 65-99 [facility] Comment on above: Performed By: #### E LEC #### [facility] ([id number]) [address] [address] [place] [address] Potassium [Moles/Vol] 5.0 mmol/L Normal 3.5-5.0 [facility] Comment on above: Performed By: #### E LEC #### [facility] ([id number]) [address] [address] [place] [address] Protein [Mass/Vol] 6.2 g/dL Normal 6.0-8.0 [facility] Comment on above: Performed By: #### E LEC #### [facility] ([id number]) [address], [address] [place] [address] Sodium [Moles/Vol] 138 mmol/L Normal 134-146 [facility] Comment on above: Performed By: #### E LEC #### [facility] ([id number]) [address] [address] [place] [address] Urea nitrogen [Mass/Vol] 44 mg/dL High 5-27 [facility] Comment on above: Performed By: #### E LEC #### [facility] ([id number]) [address] [address] [place] [address] Creatinine (U) [Mass/Vol]on 02-25-2024 URINE CREATININE,RDM 57.71 mg/dL Normal [facility] Comment on above: Performed By: #### E LEC #### [facility] ([id number]) [address] [place] [address] MAGNESIUMon 02-25-2024 Magnesium [Mass/Vol] 1.9 mg/dL Normal 1.8-2.6 [facility] Comment on above: Performed By: #### E LEC #### [facility] ([id number]) [address] [facility], [address] [place] [address] Osmolality (U) [Osmolality]o n 02-25-2024 URINE OSMOLALITY 631 mOsm/kg H2 Normal 300-1300 [facility] Comment on above: Performed By: #### E LEC #### [facility] ([id number]) [address] [facility], [address] [address] PHOSPHORUSon 02-25-2024 Phosphate [Mass/Vol] 5.9 mg/dL High 2.4-4.9 [facility] Comment on above: Result Comment: SPEC IMEN HEMOLYZED, RESULTS INCREASED SLIGHTLY HEMOLYZED Performed By: #### E LEC #### [facility] ([id number]) [address] [facility], [address] [address] Provider Letteron 02-25-2024 Provider Letter (Inserted Image. Sahra ble to display) February 25, 2024 GERA PERDUE [address] [place] [address] : 1945 Dear Gera Perdue , We [...] Sincerely, [facility] option #3 Normal [facility] URINE SODIUM,RANDOMon 2023 Sodium (U) [Moles/Vol] 119 mmol/L Normal Pr [facility] Comment on above: Performed By: #### E LEC #### [facility] ([id number]) [address] [facility] [address] [place] [address] AFB CULTURE(CONCENTRATED)on 02-24-2024 Mycobacterium sp identified Org specific cx Nom (Unsp spec) SPECIMEN NOTES SPECIMEN 2 AFB SMEAR NO ACID FAST BACILLI (CONCENTRATED SMEAR) CULTURE RESULTS NO ACID FAST BACILLI ISOLATED IN 8 WEEKS Normal [facility] Comment on above: Performed By: #### E LEC #### [facility] ([id number]) [address] [place] [address] Mycobacterium sp identified Org specific cx Nom (Unsp spec) SPECIMEN NOTES SPECIMEN 1 AFB SMEAR NO ACID FAST BACILLI (CONCENTRATED SMEAR) CULTURE RESULTS NO ACID FAST BACILLI ISOLATED IN 8 WEEKS Normal [facility] Comment on above: Performed By: #### E LEC #### [facility] ([id number]) [address], [address] AND DIFFon 2023 BODY FLUID COMMENT Interpreta tion-- ------ Normal [facility] Comment on above: Result Comment: Refe rence values for this fluid type are undefined, as fluid accumulation is considered abnormal. Performed By: #### E LEC #### [facility] ([id number]) [address], [address] [address] FLUID CLARITY HAZY Normal [facility] Comment on above: Performed By: #### E LEC #### [facility] ([id number]) [address], [facility] [address] [place] [address] FLUID COLOR COLORLESS Normal [facility] Comment on above: Performed By: #### E LEC #### [facility] ([id number]) [address], [facility] [address] [place] [address] FLUID LYMPHOCYTE 6 % Normal [facility] Comment on above: Performed By: #### E LEC #### [facility] ([id number]) [address] [place] [address] FLUID NEUTROPHILS 69 % Normal [facility] Comment on above: Performed By: #### E LEC #### [facility] ([id number]) [address] [place] [address] 34 /uL Normal [facility] Comment on above: Performed By: #### E LEC #### [facility] ([id number]) [address] [place] [address] FLUID SPECIMEN TYPE BRONCHOALVEOLAR LAVAGE Normal [facility] Comment on above: Result Comment: RIGH T LUNG, LOWER LOBE SPECIMEN 2 Performed By: #### E LEC #### [facility] ([id number]) [address] [place] [address] MACROPHAGES 25 % Normal [facility] Comment on above: Performed By: #### E LEC #### [facility] ([id number]) [address] [place] [address] 440 /uL Normal [facility] Comment on above: Performed By: #### E LEC #### [facility] ([id number]) [address] [place] [address] CBC AND AUTO DIFFon 02-24-20 Erythrocyte distribution width (RBC) [Ratio] 18.3 % High 11.5-15.0 [facility] Comment on above: Performed By: #### E LEC #### [facility] ([id number]) [address], [address] [place] [address] Hematocrit (Bld) [Volume fraction] 34.7 % Low 35-47 [facility] Comment on above: Performed By: #### E LEC #### [facility] ([id number]) [address], [address] [place] [address] Hemoglobin (Bld) [Mass/Vol] 11.2 g/dL Low 11.7-15.5 [facility] Comment on above: Performed By: #### E LEC #### [facility] ([id number]) [address], [address] [place] [address] Lymphocytes (Bld) [#/Vol] 2.8 10*3/uL Normal 1.0-3.5 [facility] Comment on above: Performed By: #### E LEC #### [facility] ([id number]) [address] [place] [address] Lymphocytes/100 WBC (Bld) 17.0 % Normal [facility] Comment on above: Performed By: #### E LEC #### [facility] ([id number]) [address] [place] [address] MCH (RBC) [Entitic mass] 24.6 pg Low 27-34 [facility] Comment on above: Performed By: #### E LEC #### [facility] ([id number]) [address] [place] [address] MCHC (RBC) [Mass/Vol] 32.1 g/dL Normal 32-36 [facility] Comment on above: Performed By: #### E LEC #### [facility] ([id number]) [address] [place] [address] MCV (RBC) [Entitic vol] 77 fL Low 80-100 [facility] Comment on above: Performed By: #### E LEC #### [facility] ([id number]) [address], [address] [place] [address] Metamyelocytes/100 WBC (Bld) 1.0 % Normal [facility] Comment on above: Performed By: #### E LEC #### [facility] ([id number]) [address], [address] [place] [address] Monocytes (Bld) [#/Vol] 0.7 10*3/uL Normal 0-0.9 [facility] Comment on above: Performed By: #### E LEC #### [facility] ([id number]) [address] [place] [address] Monocytes/100 WBC (Bld) 4.0 % Normal [facility] Comment on above: Performed By: #### E LEC #### [facility] ([id number]) [address] [place] [address] Neutrophils (Bld) [#/Vol] 12.7 10*3/uL High 1.5-6.6 [facility] Comment on above: Performed By: #### E LEC #### [facility] ([id number]) [address], [address] [place] [address] Platelet mean volume (Bld) [Entitic vol] 6.7 fL Low 7-12 [facility] Comment on above: Performed By: #### E LEC #### [facility] ([id number]) [address], [address] [place] [address] Platelets (Bld) [#/Vol] 479 10*3/uL High 150-450 [facility] Comment on above: Performed By: #### E LEC #### [facility] ([id number]) [address], [address] [place] [address] RBC COUNT 4.54 X10E12/L Normal 3.80-5.20 [facility] Comment on above: Performed By: #### E LEC #### [facility] ([id number]) [address], [address] [place] [address] RBC morphology finding Nom (Bld) NORMAL Normal [facility] Comment on above: Performed By: #### E LEC #### [facility] ([id number]) [address], [address] [place] [address] SEG NEUTROPHIL 78.0 % Normal [facility] Comment on above: Performed By: #### E LEC #### [facility] ([id number]) [address], [address] [place] [address] WBC (Bld) [#/Vol] 16.4 10*3/uL High 4.0-11.0 [facility] Comment on above: Performed By: #### E LEC #### [facility] ([id number]) [address] [place] [address] COMPREHENSIVE METABOLIC PANE Harsha 02-24-2024 Albumin [Mass/Vol] 2.8 g/dL Low 3.2-5.3 [facility] Comment on above: Performed By: #### E LEC #### [facility] ([id number]) [address] [place] [address] ALP [Catalytic activity/Vol] 63 U/L Normal 39-130 [facility] Comment on above: Performed By: #### E LEC #### [facility] ([id number]) [address], [address] [place] [address] ALT [Catalytic activity/Vol] 11 U/L Normal 0-31 [facility] Comment on above: Performed By: #### E LEC #### [facility] ([id number]) [address] [place] [address] Anion gap [Moles/Vol] 6 mmol/L Normal 5-15 [facility] Comment on above: Performed By: #### E LEC #### [facility] ([id number]) [address], [address] [place] [address] AST [Catalytic activity/Vol] 12 U/L Normal 0-41 [facility] Comment on above: Performed By: #### E LEC #### [facility] ([id number]) [address] [place] [address] Bilirubin [Mass/Vol] 0.2 mg/dL Low 0.3-1.2 [facility] Comment on above: Performed By: #### E LEC #### [facility] ([id number]) [address], [address] [place] [address] Calcium [Mass/Vol] 9.1 mg/dL Normal 8.5-10.5 [facility] Comment on above: Performed By: #### E LEC #### [facility] ([id number]) [address], [address] [place] [address] Chloride [Moles/Vol] 101 mmol/L Normal 98-109 [facility] Comment on above: Performed By: #### E LEC #### [facility] ([id number]) [address] [place] [address] CO2 [Moles/Vol] 31 mmol/L Normal 22-32 [facility] Comment on above: Performed By: #### E LEC #### [facility] ([id number]) [address] [place] [address] Creatinine [Mass/Vol] 1.05 mg/dL High 0.40-1.00 [facility] Comment on above: Result Comment: METH OD TRACEABLE TO IDMS STANDARD Performed By: #### E LEC #### [facility] ([id number]) [address] [place] [address] GFR/1.73 sq M.predicted among non-blacks MDRD (S/P/Bld) [Vol rate/Area] 54 mL/min/{1.73_m2} Low >59 [facility] Comment on above: Result Comment: Reported eGFR is based on the CKD-EPI 2020 equation that does not use a race coefficient. Performed By: #### E LEC #### [facility] ([id number]) [address], [address] [place] [address] Glucose [Mass/Vol] 91 mg/dL Normal 65-99 [facility] Comment on above: Performed By: #### E LEC #### [facility] ([id number]) [address], [address] [place] [address] Potassium [Moles/Vol] 4.5 mmol/L Normal 3.5-5.0 [facility] Comment on above: Performed By: #### E LEC #### [facility] ([id number]) [address] [place] [address] Protein [Mass/Vol] 6.2 g/dL Normal 6.0-8.0 [facility] Comment on above: Performed By: #### E LEC #### [facility] ([id number]) [address] [facility], [address] [place] [address] Sodium [Moles/Vol] 138 mmol/L Normal 134-146 [facility] Comment on above: Performed By: #### E LEC #### [facility] ([id number]) [address] [place] [address] Urea nitrogen [Mass/Vol] 33 mg/dL High 5-27 [facility] Comment on above: Performed By: #### E LEC #### [facility] ([id number]) [address] [facility], [address] [place] [address] Cytologyon 02-24-2024 Cytology Normal [facility] Comment on above: Result Comment: [facility] [address] [place] [address] Cytology Consultation Patient Name:JEAN PERDUE:1945 (Age: 78)Gender:FTaken:4Reported:02/27/2024 16:56Physician(s):Elsa Quinonez MD ([phone])Copy To:Noe Huang [facility]:[id number]. Rec. #:[id number]: #[id number] Final Cytologic Diagnosis 1. Right lower lobe, bronchial washing: No malignant cells identified. 2. Right lower lobe, bronchoalveolar lavage: No malignant cells identified. 02/27/2024 [place] [address], License number: [id number].Electronically Signed Out By Agustin Darling MD Clinical [...] lower lobe, bronchial washing Cell block for Non-director of public works (M), Level 2 H&E, Non FRONT DESK LEAD ThinPrep 2: Right lower lobe, bronchoalveolar lavage Cell block for Non-director of public works (M), Level 2 H&E, Non FRONT DESK LEAD ThinPrep Fee Code(s): 1; 94838, 75842 2; 13296, 88615 FUNGAL CULTUREon 02-24-2024 Fungus identified Cx Nom (Unsp spec) SPECIMEN NOTES SPECIMEN 2 FUNGAL SMEAR NO FUNGAL ELEMENTS SEEN ON CONCENTRATED SMEAR CULTURE RESULTS NO FUNGUS ISOLATED AFTER 4 WEEKS Normal [facility] Comment on above: Performed By: #### E LEC #### [facility] ([id number]) [address] [place] [address] Fungus identified Cx Nom (Unsp spec) SPECIMEN NOTES SPECIMEN 1 FUNGAL SMEAR NO FUNGAL ELEMENTS SEEN ON CONCENTRATED SMEAR CULTURE RESULTS NO FUNGUS ISOLATED AFTER 4 WEEKS Normal [facility] Comment on above: Performed By: #### E LEC #### [facility] ([id number]) [facility] [place] [address] LOWER RESPIRATORY CULTUREon 02-24-2024 Bacteria identified Respiratory culture Nom (Sput) SPECIMEN NOTES SPECIMEN 2 GRAM STAIN 1 to 9 WHITE BLOOD CELLS/LPF 1 to 9 SQUAMOUS EPITHELIAL CELLS/LPF 0 CILIATED EPITHELIAL CELLS/LPF NO ORGANISMS SEEN CULTURE RESULTS RARE NORMAL ORAL KIMBERLY Normal [facility] Comment on above: Performed By: #### E LEC #### [facility] ([id number]) [address] [place] [address] Bacteria identified Respiratory culture Nom (Sput) SPECIMEN NOTES SPECIMEN 1 GRAM STAIN 1 to 9 WHITE BLOOD CELLS/LPF 1 to 9 SQUAMOUS EPITHELIAL CELLS/LPF 0 CILIATED EPITHELIAL CELLS/LPF NO ORGANISMS SEEN CULTURE RESULTS RARE NORMAL ORAL KIMBERLY Normal [facility] Comment on above: Performed By: #### E LEC #### [facility] ([id number]) [address] [place] [address] M. pneumoniae DNA ELIZABETH+probe Ql (Unsp spec)on 02-24-2024 M PNEUMONIAE DNA PCR See Below Normal [facility] Comment on above: Result Comment: NOTE [...] developed and its performance characteristics determined by [facility]. It has not been cleared or approved by the [place] Food and Drug Administration. This test was performed in a CLIA certified laboratory and is intended for clinical purposes. Performed By: [facility] [address] [place] [id number] [employer]: Eduardo Lindsay MD, PhD CLIA Number: [id number] SOURCE: Sputum Performed By: #### E LEC #### [facility] ([id number]) [address] [place] [address] MAGNESIUMon 02-24-2024 Magnesium [Mass/Vol] 2.1 mg/dL Normal 1.8-2.6 [facility] Comment on above: Performed By: #### E LEC #### [facility] ([id number]) [address] [place] [address] PHOSPHORUSon 02-24-2024 Phosphate [Mass/Vol] 4.6 mg/dL Normal 2.4-4.9 [facility] Comment on above: Performed By: #### E LEC #### [facility] ([id number]) [address] [place] [address] Procalcitonin IA [Mass/Vol]o n 02-24-2024 PROCALCITONIN <0.05 Normal <0.05 [facility] Comment on above: Result Comment: NOTE <0.50 ng/mL - Low risk of severe sepsis and/or septic shock. <2.00 ng/mL - Recommend retesting within 6-24 hours. >2.00 ng/mL - High risk of sepsis and/or septic shock. Performed By: #### E LEC #### [facility] ([id number]) [address] [place] [address] CBC AND AUTO DIFFon 02-23-20 24 Band form neutrophils/100 WBC (Bld) 1.0 % Normal [facility] Comment on above: Performed By: #### E LEC #### [facility] ([id number]) [address] [place] [address] Erythrocyte distribution width (RBC) [Ratio] 18.2 % High 11.5-15.0 [facility] Comment on above: Performed By: #### E LEC #### [facility] ([id number]) [address] [place] [address] Hematocrit (Bld) [Volume fraction] 35.2 % Normal 35-47 [facility] Comment on above: Performed By: #### E LEC #### [facility] ([id number]) [address] [place] [address] Hemoglobin (Bld) [Mass/Vol] 11.3 g/dL Low 11.7-15.5 [facility] Comment on above: Performed By: #### E LEC #### [facility] ([id number]) [address] [place] [address] HYPOCHROMIA 2+ Abnormal NONE [facility] Comment on above: Performed By: #### E LEC #### [facility] ([id number]) [address] [place] [address] Lymphocytes (Bld) [#/Vol] 2.6 10*3/uL Normal 1.0-3.5 [facility] Comment on above: Performed By: #### E LEC #### [facility] ([id number]) [address] [place] [address] Lymphocytes/100 WBC (Bld) 16.0 % Normal [facility] Comment on above: Performed By: #### E LEC #### [facility] ([id number]) [address] [place] [address] MCH (RBC) [Entitic mass] 24.8 pg Low 27-34 [facility] Comment on above: Performed By: #### E LEC #### [facility] ([id number]) [address] [place] [address] MCHC (RBC) [Mass/Vol] 32.2 g/dL Normal 32-36 [facility] Comment on above: Performed By: #### E LEC #### [facility] ([id number]) [address] [place] [address] MCV (RBC) [Entitic vol] 77 fL Low 80-100 [facility] Comment on above: Performed By: #### E LEC #### [facility] ([id number]) [address] [place] [address] Monocytes (Bld) [#/Vol] 1.0 10*3/uL High 0-0.9 [facility] Comment on above: Performed By: #### E LEC #### [facility] ([id number]) [address] [place] [address] Monocytes/100 WBC (Bld) 6.0 % Normal [facility] Comment on above: Performed By: #### E LEC #### [facility] ([id number]) [address] [place] [address] MYELOCYTE 3.0 % Normal [facility] Comment on above: Performed By: #### E LEC #### [facility] ([id number]) [address] [place] [address] Neutrophils (Bld) [#/Vol] 12.2 10*3/uL High 1.5-6.6 [facility] Comment on above: Performed By: #### E LEC #### [facility] ([id number]) [address] [place] [address] Platelet mean volume (Bld) [Entitic vol] 6.7 fL Low 7-12 [facility] Comment on above: Performed By: #### E LEC #### [facility] ([id number]) [address] [place] [address] Platelets (Bld) [#/Vol] 493 10*3/uL High 150-450 [facility] Comment on above: Performed By: #### E LEC #### [facility] ([id number]) [address] [place] [address] RBC COUNT 4.57 X10E12/L Normal 3.80-5.20 [facility] Comment on above: Performed By: #### E LEC #### [facility] ([id number]) [address] [place] [address] SEG NEUTROPHIL 74.0 % Normal [facility] Comment on above: Performed By: #### E LEC #### [facility] ([id number]) [address] [place] [address] WBC (Bld) [#/Vol] 16.3 10*3/uL High 4.0-11.0 [facility] Comment on above: Performed By: #### E LEC #### [facility] ([id number]) [address] [facility], [address] [place] [address] CK [Catalytic activity/Vol]o n 02-23-2024 CPK <10 Low 24-170 [facility] Comment on above: Performed By: #### E LEC #### [facility] ([id number]) [address] [place] [address] COMPREHENSIVE METABOLIC PANE Harsha 02-23-2024 Albumin [Mass/Vol] 2.9 g/dL Low 3.2-5.3 [facility] Comment on above: Performed By: #### E LEC #### [facility] ([id number]) [address], [address] [place] [address] ALP [Catalytic activity/Vol] 69 U/L Normal 39-130 [facility] Comment on above: Performed By: #### E LEC #### [facility] ([id number]) [address], [address] [place] [address] ALT [Catalytic activity/Vol] 7 U/L Normal 0-31 [facility] Comment on above: Performed By: #### E LEC #### [facility] ([id number]) [address], [address] [place] [address] Anion gap [Moles/Vol] 7 mmol/L Normal 5-15 [facility] Comment on above: Performed By: #### E LEC #### [facility] ([id number]) [address] [place] [address] AST [Catalytic activity/Vol] 11 U/L Normal 0-41 [facility] Comment on above: Performed By: #### E LEC #### [facility] ([id number]) [address], [address] [place] [address] Bilirubin [Mass/Vol] 0.2 mg/dL Low 0.3-1.2 [facility] Comment on above: Performed By: #### E LEC #### [facility] ([id number]) [address], [address] [place] [address] Calcium [Mass/Vol] 9.4 mg/dL Normal 8.5-10.5 [facility] Comment on above: Performed By: #### E LEC #### [facility] ([id number]) [address] [place] [address] Chloride [Moles/Vol] 103 mmol/L Normal 98-109 [facility] Comment on above: Performed By: #### E LEC #### [facility] ([id number]) [address] [place] [address] CO2 [Moles/Vol] 31 mmol/L Normal 22-32 [facility] Comment on above: Performed By: #### E LEC #### [facility] ([id number]) [address], [address] [place] [address] Creatinine [Mass/Vol] 0.97 mg/dL Normal 0.40-1.00 [facility] Comment on above: Result Comment: METH OD TRACEABLE TO IDMS STANDARD Performed By: #### E LEC #### [facility] ([id number]) [address] [place] [address] GFR/1.73 sq M.predicted among non-blacks MDRD (S/P/Bld) [Vol rate/Area] 60 mL/min/{1.73_m2} Normal >59 [facility] Comment on above: Result Comment: Reported eGFR is based on the CKD-EPI 2020 equation that does not use a race coefficient. Performed By: #### E LEC #### [facility] ([id number]) [address] [address] [place] [address] Glucose [Mass/Vol] 86 mg/dL Normal 65-99 [facility] Comment on above: Performed By: #### E LEC #### [facility] ([id number]) [address] [address] [place] [address] Potassium [Moles/Vol] 4.6 mmol/L Normal 3.5-5.0 [facility] Comment on above: Performed By: #### E LEC #### [facility] ([id number]) [address] [address] [place] [address] Protein [Mass/Vol] 6.6 g/dL Normal 6.0-8.0 [facility] Comment on above: Performed By: #### E LEC #### [facility] ([id number]) [address] [address] [place] [address] Sodium [Moles/Vol] 141 mmol/L Normal 134-146 [facility] Comment on above: Performed By: #### E LEC #### [facility] ([id number]) [address] [address] [place] [address] Urea nitrogen [Mass/Vol] 31 mg/dL High 5-27 [facility] Comment on above: Performed By: #### E LEC #### [facility] ([id number]) [address] [address] [place] [address] FL SWALLOW MOTILITY FUNCTION on 02-23-2024 FL [...] León Parikh on 02/23/2024 8:44 AM Normal [facility] MAGNESIUMon 02-23-2024 Magnesium [Mass/Vol] 1.7 mg/dL Low 1.8-2.6 [facility] Comment on above: Performed By: #### E LEC #### [facility] ([id number]) [address] [address] [place] [address] PHOSPHORUSon 02-23-2024 Phosphate [Mass/Vol] 3.8 mg/dL Normal 2.4-4.9 [facility] Comment on above: Performed By: #### E LEC #### [facility] ([id number]) [address] [place] [address] CBC AND AUTO DIFFon 02-22-20 Erythrocyte distribution width (RBC) [Ratio] 18.6 % High 11.5-15.0 [facility] Comment on above: Performed By: #### E LEC #### [facility] ([id number]) [address], [address] [place] [address] Hematocrit (Bld) [Volume fraction] 34.2 % Low 35-47 [facility] Comment on above: Performed By: #### E LEC #### [facility] ([id number]) [address] [place] [address] Hemoglobin (Bld) [Mass/Vol] 11.0 g/dL Low 11.7-15.5 [facility] Comment on above: Performed By: #### E LEC #### [facility] ([id number]) [address] [place] [address] HYPOCHROMIA 2+ Abnormal NONE [facility] Comment on above: Performed By: #### E LEC #### [facility] ([id number]) [address] [place] [address] Lymphocytes (Bld) [#/Vol] 2.6 10*3/uL Normal 1.0-3.5 [facility] Comment on above: Performed By: #### E LEC #### [facility] ([id number]) [address] [place] [address] Lymphocytes/100 WBC (Bld) 17.0 % Normal [facility] Comment on above: Performed By: #### E LEC #### [facility] ([id number]) [address] [place] [address] MCH (RBC) [Entitic mass] 24.5 pg Low 27-34 [facility] Comment on above: Performed By: #### E LEC #### [facility] ([id number]) [address] [place] [address] MCHC (RBC) [Mass/Vol] 32.0 g/dL Normal 32-36 [facility] Comment on above: Performed By: #### E LEC #### [facility] ([id number]) [address] [place] [address] MCV (RBC) [Entitic vol] 76 fL Low 80-100 [facility] Comment on above: Performed By: #### E LEC #### [facility] ([id number]) [address] [place] [address] Monocytes (Bld) [#/Vol] 0.6 10*3/uL Normal 0-0.9 [facility] Comment on above: Performed By: #### E LEC #### [facility] ([id number]) [address] [place] [address] Monocytes/100 WBC (Bld) 4.0 % Normal [facility] Comment on above: Performed By: #### E LEC #### [facility] ([id number]) [address] [place] [address] Neutrophils (Bld) [#/Vol] 12.0 10*3/uL High 1.5-6.6 [facility] Comment on above: Performed By: #### E LEC #### [facility] ([id number]) [address] [place] [address] Platelet mean volume (Bld) [Entitic vol] 6.6 fL Low 7-12 [facility] Comment on above: Performed By: #### E LEC #### [facility] ([id number]) [address] [place] [address] Platelets (Bld) [#/Vol] 444 10*3/uL Normal 150-450 [facility] Comment on above: Performed By: #### E LEC #### [facility] ([id number]) [address] [place] [address] RBC COUNT 4.47 X10E12/L Normal 3.80-5.20 [facility] Comment on above: Performed By: #### E LEC #### [facility] ([id number]) [address] [place] [address] SEG NEUTROPHIL 79.0 % Normal [facility] Comment on above: Performed By: #### E LEC #### [facility] ([id number]) [address] [place] [address] WBC (Bld) [#/Vol] 15.2 10*3/uL High 4.0-11.0 [facility] Comment on above: Performed By: #### E LEC #### [facility] ([id number]) [address] [place] [address] COMPREHENSIVE METABOLIC PANE Harsha 02-22-2024 Albumin [Mass/Vol] 2.9 g/dL Low 3.2-5.3 [facility] Comment on above: Performed By: #### E LEC #### [facility] ([id number]) [address] [place] [address] ALP [Catalytic activity/Vol] 80 U/L Normal 39-130 [facility] Comment on above: Performed By: #### E LEC #### [facility] ([id number]) [address], [address] [place] [address] ALT [Catalytic activity/Vol] 9 U/L Normal 0-31 [facility] Comment on above: Performed By: #### E LEC #### [facility] ([id number]) [address] [place] [address] Anion gap [Moles/Vol] 8 mmol/L Normal 5-15 [facility] Comment on above: Performed By: #### E LEC #### [facility] ([id number]) [address] [place] [address] AST [Catalytic activity/Vol] 12 U/L Normal 0-41 [facility] [place] [facility] Comment on above: Performed By: #### E LEC #### [facility] ([id number]) [address] [place] [address] Bilirubin [Mass/Vol] 0.2 mg/dL Low 0.3-1.2 [facility] Comment on above: Performed By: #### E LEC #### [facility] ([id number]) [address] [place] [address] Calcium [Mass/Vol] 9.2 mg/dL Normal 8.5-10.5 [facility] Comment on above: Performed By: #### E LEC #### [facility] ([id number]) [address] [place] [address] Chloride [Moles/Vol] 103 mmol/L Normal 98-109 [facility] Comment on above: Performed By: #### E LEC #### [facility] ([id number]) [address] [place] [address] CO2 [Moles/Vol] 32 mmol/L Normal 22-32 [facility] Comment on above: Performed By: #### E LEC #### [facility] ([id number]) [address] [place] [address] Creatinine [Mass/Vol] 0.94 mg/dL Normal 0.40-1.00 [facility] Comment on above: Result Comment: METH OD TRACEABLE TO IDMS STANDARD Performed By: #### E LEC #### [facility] ([id number]) [address] [place] [address] GFR/1.73 sq M.predicted among non-blacks MDRD (S/P/Bld) [Vol rate/Area] 62 mL/min/{1.73_m2} Normal >59 [facility] Comment on above: Result Comment: Reported eGFR is based on the CKD-EPI 2020 equation that does not use a race coefficient. Performed By: #### E LEC #### [facility] ([id number]) [address] [place] [address] Glucose [Mass/Vol] 128 mg/dL High 65-99 [facility] Comment on above: Performed By: #### E LEC #### [facility] ([id number]) [address] [place] [address] Potassium [Moles/Vol] 4.2 mmol/L Normal 3.5-5.0 [facility] Comment on above: Performed By: #### E LEC #### [facility] ([id number]) [address] [place] [address] Protein [Mass/Vol] 6.9 g/dL Normal 6.0-8.0 [facility] Comment on above: Performed By: #### E LEC #### [facility] ([id number]) [address] [place] [address] Sodium [Moles/Vol] 143 mmol/L Normal 134-146 [facility] Comment on above: Performed By: #### E LEC #### [facility] ([id number]) [address] [place] [address] Urea nitrogen [Mass/Vol] 29 mg/dL High 5-27 [facility] Comment on above: Performed By: #### E LEC #### [facility] ([id number]) [address] [place] [address] MAGNESIUMon 02-22-2024 Magnesium [Mass/Vol] 2.0 mg/dL Normal 1.8-2.6 [facility] Comment on above: Performed By: #### E LEC #### [facility] ([id number]) [address] [place] [address] PHOSPHORUSon 02-22-2024 Phosphate [Mass/Vol] 3.3 mg/dL Normal 2.4-4.9 [facility] Comment on above: Performed By: #### E LEC #### [facility] ([id number]) [address] [place] [address] C DIFFICILE BY PCRon 024 C. difficile toxin genes ELIZABETH+probe Ql (Stl) TOXIGENIC C DIFF Negative (qualifier value) 027 NAP1 Negative (qualifier value) Normal PRNEG [facility] Comment on above: Performed By: #### E LEC #### [facility] ([id number]) [address] [place] [address] CBC AND AUTO DIFFon 02-21-20 24 ABSOLUTE BASOPHIL 0.0 X10E9/L Normal 0.0-0.2 [facility] Comment on above: Performed By: #### E LEC #### [facility] ([id number]) [address] [place] [address] ABSOLUTE NEUTROPHIL 10.9 X10E9/L High 1.5-6.6 [facility] Comment on above: Performed By: #### E LEC #### [facility] ([id number]) [address] [place] [address] Basophils/100 WBC (Bld) 0.2 % Normal [facility] Comment on above: Performed By: #### E LEC #### [facility] ([id number]) [address] [place] [address] Eosinophils (Bld) [#/Vol] 0.0 10*3/uL Normal 0.0-0.4 [facility] Comment on above: Performed By: #### E LEC #### [facility] ([id number]) [address] [place] [address] Eosinophils/100 WBC (Bld) 0.0 % Normal [facility] Comment on above: Performed By: #### E LEC #### [facility] ([id number]) [address] [place] [address] Erythrocyte distribution width (RBC) [Ratio] 18.0 % High 11.5-15.0 [facility] Comment on above: Performed By: #### E LEC #### [facility] ([id number]) [address] [place] [address] Hematocrit (Bld) [Volume fraction] 32.3 % Low 35-47 [facility] Comment on above: Performed By: #### E LEC #### [facility] ([id number]) [address] [place] [address] Hemoglobin (Bld) [Mass/Vol] 10.5 g/dL Low 11.7-15.5 [facility] Comment on above: Performed By: #### E LEC #### [facility] ([id number]) [address] [place] [address] Lymphocytes (Bld) [#/Vol] 2.1 10*3/uL Normal 1.0-3.5 [facility] Comment on above: Performed By: #### E LEC #### [facility] ([id number]) [address] [place] [address] Lymphocytes/100 WBC (Bld) 14.7 % Normal [facility] Comment on above: Performed By: #### E LEC #### [facility] ([id number]) [address] [place] [address] MCH (RBC) [Entitic mass] 24.6 pg Low 27-34 [facility] Comment on above: Performed By: #### E LEC #### [facility] ([id number]) [address] [place] [address] MCHC (RBC) [Mass/Vol] 32.5 g/dL Normal 32-36 [facility] Comment on above: Performed By: #### E LEC #### [facility] ([id number]) [address] [place] [address] MCV (RBC) [Entitic vol] 76 fL Low 80-100 [facility] Comment on above: Performed By: #### E LEC #### [facility] ([id number]) [address] [place] [address] Monocytes (Bld) [#/Vol] 1.3 10*3/uL High 0-0.9 [facility] Comment on above: Performed By: #### E LEC #### [facility] ([id number]) [address] [place] [address] Monocytes/100 WBC (Bld) 9.2 % Normal [facility] Comment on above: Performed By: #### E LEC #### [facility] ([id number]) [address] [place] [address] Neutrophils/100 WBC (Bld) 75.9 % Normal [facility] Comment on above: Performed By: #### E LEC #### [facility] ([id number]) [address] [place] [address] Platelet mean volume (Bld) [Entitic vol] 6.7 fL Low 7-12 [facility] Comment on above: Performed By: #### E LEC #### [facility] ([id number]) [address] [place] [address] Platelets (Bld) [#/Vol] 448 10*3/uL Normal 150-450 [facility] Comment on above: Performed By: #### E LEC #### [facility] ([id number]) [address] [place] [address] RBC COUNT 4.27 X10E12/L Normal 3.80-5.20 [facility] Comment on above: Performed By: #### E LEC #### [facility] ([id number]) [address] [place] [address] WBC (Bld) [#/Vol] 14.4 10*3/uL High 4.0-11.0 [facility] Comment on above: Performed By: #### E LEC #### [facility] ([id number]) [address] [place] [address] COMPREHENSIVE METABOLIC PANE Harsha 02-21-2024 Albumin [Mass/Vol] 2.9 g/dL Low 3.2-5.3 [facility] Comment on above: Performed By: #### E LEC #### [facility] ([id number]) [address] [place] [address] ALP [Catalytic activity/Vol] 81 U/L Normal 39-130 [facility] Comment on above: Performed By: #### E LEC #### [facility] ([id number]) [address] [place] [address] ALT [Catalytic activity/Vol] 4 U/L Normal 0-31 [facility] Comment on above: Performed By: #### E LEC #### [facility] ([id number]) [address] [place] [address] Anion gap [Moles/Vol] 7 mmol/L Normal 5-15 [facility] Comment on above: Performed By: #### E LEC #### [facility] ([id number]) [address] [place] [address] AST [Catalytic activity/Vol] 9 U/L Normal 0-41 [facility] Comment on above: Performed By: #### E LEC #### [facility] ([id number]) [address] [place] [address] Bilirubin [Mass/Vol] 0.2 mg/dL Low 0.3-1.2 [facility] Comment on above: Performed By: #### E LEC #### [facility] ([id number]) [address] [place] [address] Calcium [Mass/Vol] 8.9 mg/dL Normal 8.5-10.5 [facility] Comment on above: Performed By: #### E LEC #### [facility] ([id number]) [address] [place] [address] Chloride [Moles/Vol] 102 mmol/L Normal 98-109 [facility] Comment on above: Performed By: #### E LEC #### [facility] ([id number]) [address] [place] [address] CO2 [Moles/Vol] 34 mmol/L High 22-32 [facility] Comment on above: Performed By: #### E LEC #### [facility] ([id number]) [address] [place] [address] Creatinine [Mass/Vol] 1.09 mg/dL High 0.40-1.00 [facility] Comment on above: Result Comment: METH OD TRACEABLE TO IDMS STANDARD Performed By: #### E LEC #### [facility] ([id number]) [address] [place] [address] GFR/1.73 sq M.predicted among non-blacks MDRD (S/P/Bld) [Vol rate/Area] 52 mL/min/{1.73_m2} Low >59 [facility] Comment on above: Result Comment: Reported eGFR is based on the CKD-EPI 1 equation that does not use a race coefficient. Performed By: #### E LEC #### [facility] ([id number]) [address] [place] [address] Glucose [Mass/Vol] 150 mg/dL High 65-99 [facility] Comment on above: Performed By: #### E LEC #### [facility] ([id number]) [address] [place] [address] Potassium [Moles/Vol] 4.0 mmol/L Normal 3.5-5.0 [facility] Comment on above: Performed By: #### E LEC #### [facility] ([id number]) [address] [place] [address] Protein [Mass/Vol] 6.8 g/dL Normal 6.0-8.0 [facility] Comment on above: Performed By: #### E LEC #### [facility] ([id number]) [address] [place] [address] Sodium [Moles/Vol] 143 mmol/L Normal 134-146 [facility] Comment on above: Performed By: #### E LEC #### [facility] ([id number]) [address] [place] [address] Urea nitrogen [Mass/Vol] 25 mg/dL Normal 5-27 [facility] Comment on above: Performed By: #### E LEC #### [facility] ([id number]) [address] [place] [address] GI PANELon 02-21-2024 Gastrointestinal pathogens DNA and [...] SAPOVIRUS Not detected (qualifier value) Normal NDET [facility] Comment on above: Performed By: #### E LEC #### [facility] ([id number]) [address] [place] [address] MAGNESIUMon 02-21-2024 Magnesium [Mass/Vol] 2.4 mg/dL Normal 1.8-2.6 [facility] Comment on above: Performed By: #### E LEC #### [facility] ([id number]) [address] [place] [address] PHOSPHORUSon 02-21-2024 Phosphate [Mass/Vol] 3.7 mg/dL Normal 2.4-4.9 [facility] Comment on above: Performed By: #### E LEC #### [facility] ([id number]) [address] [place] [address] CBC AND AUTO DIFFon 02-20-20 ABSOLUTE BASOPHIL 0.0 X10E9/L Normal 0.0-0.2 [facility] Comment on above: Performed By: #### E LEC #### [facility] ([id number]) [address] [place] [address] ABSOLUTE NEUTROPHIL 10.4 X10E9/L High 1.5-6.6 [facility] Comment on above: Performed By: #### E LEC #### [facility] ([id number]) [address] [place] [address] Basophils/100 WBC (Bld) 0.1 % Normal [facility] Comment on above: Performed By: #### E LEC #### [facility] ([id number]) [address] [place] [address] Eosinophils (Bld) [#/Vol] 0.0 10*3/uL Normal 0.0-0.4 [facility] Comment on above: Performed By: #### E LEC #### [facility] ([id number]) [address] [place] [address] Eosinophils/100 WBC (Bld) 0.0 % Normal [facility] Comment on above: Performed By: #### E LEC #### [facility] ([id number]) [address] [place] [address] Erythrocyte distribution width (RBC) [Ratio] 18.1 % High 11.5-15.0 [facility] Comment on above: Performed By: #### E LEC #### [facility] ([id number]) [address] [place] [address] Hematocrit (Bld) [Volume fraction] 33.6 % Low 35-47 [facility] Comment on above: Performed By: #### E LEC #### [facility] ([id number]) [address] [place] [address] Hemoglobin (Bld) [Mass/Vol] 11.2 g/dL Low 11.7-15.5 [facility] Comment on above: Performed By: #### E LEC #### [facility] ([id number]) [address] [place] [address] Lymphocytes (Bld) [#/Vol] 1.3 10*3/uL Normal 1.0-3.5 [facility] Comment on above: Performed By: #### E LEC #### [facility] ([id number]) [address], [address] [place] [address] Lymphocytes/100 WBC (Bld) 10.6 % Normal [facility] Comment on above: Performed By: #### E LEC #### [facility] ([id number]) [address], [address] [place] [address] MCH (RBC) [Entitic mass] 25.1 pg Low 27-34 [facility] Comment on above: Performed By: #### E LEC #### [facility] ([id number]) [address], [address] [place] [address] MCHC (RBC) [Mass/Vol] 33.3 g/dL Normal 32-36 [facility] Comment on above: Performed By: #### E LEC #### [facility] ([id number]) [address], [address] [place] [address] MCV (RBC) [Entitic vol] 76 fL Low 80-100 [facility] Comment on above: Performed By: #### E LEC #### [facility] ([id number]) [address] [place] [address] Monocytes (Bld) [#/Vol] 0.5 10*3/uL Normal 0-0.9 [facility] Comment on above: Performed By: #### E LEC #### [facility] ([id number]) [address] [place] [address] Monocytes/100 WBC (Bld) 3.7 % Normal [facility] Comment on above: Performed By: #### E LEC #### [facility] ([id number]) [address] [place] [address] Neutrophils/100 WBC (Bld) 85.6 % Normal [facility] Comment on above: Performed By: #### E LEC #### [facility] ([id number]) [address] [place] [address] Platelet mean volume (Bld) [Entitic vol] 6.9 fL Low 7-12 [facility] Comment on above: Performed By: #### E LEC #### [facility] ([id number]) [address], [address] [place] [address] Platelets (Bld) [#/Vol] 425 10*3/uL Normal 150-450 [facility] Comment on above: Performed By: #### E LEC #### [facility] ([id number]) [address] [place] [address] RBC COUNT 4.45 X10E12/L Normal 3.80-5.20 [facility] Comment on above: Performed By: #### E LEC #### [facility] ([id number]) [address] [place] [address] WBC (Bld) [#/Vol] 12.1 10*3/uL High 4.0-11.0 [facility] Comment on above: Performed By: #### E LEC #### [facility] [facility] ([id number]) [address], [address] [place] [address] COMPREHENSIVE METABOLIC PANE Harsha 02-20-2024 Albumin [Mass/Vol] 3.0 g/dL Low 3.2-5.3 [facility] Comment on above: Performed By: #### E LEC #### [facility] ([id number]) [address], [address] [place] [address] ALP [Catalytic activity/Vol] 81 U/L Normal 39-130 [facility] Comment on above: Performed By: #### E LEC #### [facility] ([id number]) [address], [address] [place] [address] ALT [Catalytic activity/Vol] U/L Normal 0-31 [facility] Comment on above: Performed By: #### E LEC #### [facility] ([id number]) [address], [address] [place] [address] Anion gap [Moles/Vol] 10 mmol/L Normal 5-15 [facility] Comment on above: Performed By: #### E LEC #### [facility] ([id number]) [address], [address] [place] [address] AST [Catalytic activity/Vol] 9 U/L Normal 0-41 [facility] Comment on above: Performed By: #### E LEC #### [facility] ([id number]) [address], [address] [place] [address] Bilirubin [Mass/Vol] 0.2 mg/dL Low 0.3-1.2 [facility] Comment on above: Performed By: #### E LEC #### [facility] ([id number]) [address] [address] [place] [address] Calcium [Mass/Vol] 9.1 mg/dL Normal 8.5-10.5 [facility] Comment on above: Performed By: #### E LEC #### [facility] ([id number]) [address] [address] [place] [address] Chloride [Moles/Vol] 97 mmol/L Low 98-109 [facility] Comment on above: Performed By: #### E LEC #### [facility] ([id number]) [address] [address] [place] [address] CO2 [Moles/Vol] 33 mmol/L High 22-32 [facility] Comment on above: Performed By: #### E LEC #### [facility] ([id number]) [address], [address] [place] [address] Creatinine [Mass/Vol] 1.16 mg/dL High 0.40-1.00 [facility] Comment on above: Result Comment: METH OD TRACEABLE TO IDMS STANDARD Performed By: #### E LEC #### [facility] ([id number]) [address] [address] [place] [address] GFR/1.73 sq M.predicted among non-blacks MDRD (S/P/Bld) [Vol rate/Area] 48 mL/min/{1.73_m2} Low >59 [facility] Comment on above: Result Comment: Reported eGFR is based on the CKD-EPI 2020 equation that does not use a race coefficient. Performed By: #### E LEC #### [facility] ([id number]) [address], [address] [place] [address] Glucose [Mass/Vol] 171 mg/dL High 65-99 [facility] Comment on above: Performed By: #### E LEC #### [facility] ([id number]) [address], [address] [place] [address] Potassium [Moles/Vol] 3.6 mmol/L Normal 3.5-5.0 [facility] Comment on above: Performed By: #### E LEC #### [facility] ([id number]) [address], [address] [place] [address] Protein [Mass/Vol] 7.1 g/dL Normal 6.0-8.0 [facility] Comment on above: Performed By: #### E LEC #### [facility] ([id number]) [address], [address] [place] [address] Sodium [Moles/Vol] 140 mmol/L Normal 134-146 [facility] Comment on above: Performed By: #### E LEC #### [facility] ([id number]) [address], [address] [place] [address] Urea nitrogen [Mass/Vol] 16 mg/dL Normal 5-27 [facility] Comment on above: Performed By: #### E LEC #### [facility] ([id number]) [address], [address] [place] [address] MAGNESIUMon 02-20-2024 Magnesium [Mass/Vol] 2.8 mg/dL High 1.8-2.6 [facility] Comment on above: Performed By: #### E LEC #### [facility] ([id number]) [address], [address] [place] [address] Magnesium [Mass/Vol] 1.5 mg/dL Low 1.8-2.6 [facility] Comment on above: Performed By: #### E LEC #### [facility] ([id number]) [address], [address] [place] [address] PHOSPHORUSon 02-20-2024 Phosphate [Mass/Vol] 3.6 mg/dL Normal 2.4-4.9 [facility] Comment on above: Performed By: #### E LEC #### [facility] ([id number]) [address], [address] [place] [address] POTASSIUMon 02-20-2024 Potassium [Moles/Vol] 4.1 mmol/L Normal 3.5-5.0 [facility] Comment on above: Performed By: #### E LEC #### [facility] ([id number]) [address], [address] [place] [address] BASIC METABOLIC PANLon 02-18 Anion gap [Moles/Vol] 10 mmol/L Normal 5-15 [facility] Comment on above: Performed By: #### C SRINI BMP, , 2776-10 #### [facility] ([id number]) [address], [address] [place] [address] Calcium [Mass/Vol] 9.5 mg/dL Normal 8.5-10.5 [facility] Comment on above: Performed By: #### C SRINI, BMP, , 2776-10 #### [facility] ([id number]) [address], [address] [place] [address] Chloride [Moles/Vol] 96 mmol/L Low 98-109 [facility] Comment on above: Performed By: #### C SRINI, BMP, , 2776-10 #### [facility] ([id number]) [address], [address] [place] [address] CO2 [Moles/Vol] 32 mmol/L Normal 22-32 [facility] Comment on above: Performed By: #### C SANTOSH MILLIGAN, , 2776-10 #### [facility] ([id number]) [address], [address] [place] [address] Creatinine [Mass/Vol] 1.10 mg/dL High 0.40-1.00 [facility] Comment on above: Result Comment: METH OD TRACEABLE TO IDMS STANDARD Performed By: #### C SANTOSH MILLIGAN, , 2776-10 #### [facility] ([id number]) [address] [facility] [address] [place] [address] GFR/1.73 sq M.predicted among non-blacks MDRD (S/P/Bld) [Vol rate/Area] 51 mL/min/{1.73_m2} Low >59 [facility] Comment on above: Result Comment: Reported eGFR is based on the CKD-EPI 2020 equation that does not use a race coefficient. Performed By: #### C SANTOSH MILLIGAN, , 2776-10 #### [facility] ([id number]) [address], [address] [place] [address] Glucose [Mass/Vol] 131 mg/dL High 65-99 [facility] Comment on above: Performed By: #### SANTOSH SALEEM, , 2776-10 #### [facility] ([id number]) [address] [address] [place] [address] Potassium [Moles/Vol] 3.9 mmol/L Normal 3.5-5.0 [facility] Comment on above: Performed By: #### SANTOSH SALEEM, , 2776-10 #### [facility] ([id number]) [address], [address] [place] [address] Sodium [Moles/Vol] 138 mmol/L Normal 134-146 [facility] Comment on above: Performed By: #### C SANTOSH MILLIGAN, , 2776-10 #### [facility] ([id number]) [address], [address] [place] [address] Urea nitrogen [Mass/Vol] 11 mg/dL Normal 5-27 [facility] Comment on above: Performed By: #### C SANOTSH MILLIGAN, , 2776-10 #### [facility] ([id number]) [address], [address] [place] [address] BLOOD CULTUREon 02-19-2024 Bacteria identified Aer cx Nom (Bld) SPECIMEN NOTES ONLY ANAEROBIC BOTTLE SENT CULTURE RESULTS NO GROWTH 5 DAYS Normal [facility] Comment on above: Performed By: #### E LEC #### [facility] ([id number]) [address] [place] [address] Bacteria identified Aer cx Nom (Bld) CULTURE RESULTS NO GROWTH 5 DAYS Normal [facility] CBC AND AUTO DIFFon 02-19-20 ABSOLUTE BASOPHIL 0.0 X10E9/L Normal 0.0-0.2 [facility] Comment on above: Performed By: #### SANTOSH SALEEM, , 2776-10 #### [facility] ([id number]) [address], [address] [place] [address] ABSOLUTE NEUTROPHIL 10.1 X10E9/L High 1.5-6.6 [facility] Comment on above: Performed By: #### C SANTOSH MILLIGAN, , 2776-10 #### [facility] ([id number]) [address], [address] [place] [address] Basophils/100 WBC (Bld) 0.3 % Normal [facility] Comment on above: Performed By: #### SANTOSH SALEEM, , 2776-10 #### [facility] ([id number]) [address], [address] [place] [address] Eosinophils (Bld) [#/Vol] 0.2 10*3/uL Normal 0.0-0.4 [facility] Comment on above: Performed By: #### SANTOSH SALEEM, , 2776-10 #### [facility] ([id number]) [address], [address] [place] [address] Eosinophils/100 WBC (Bld) 1.3 % Normal [facility] Comment on above: Performed By: #### SANTOSH SALEEM, , 2776-10 #### [facility] ([id number]) [address] [facility] [address] [place] [address] Erythrocyte distribution width (RBC) [Ratio] 18.1 % High 11.5-15.0 [facility] Comment on above: Performed By: #### SANTOSH SALEEM, , 2776-10 #### [facility] ([id number]) [address], [address] [place] [address] Hematocrit (Bld) [Volume fraction] 37.8 % Normal 35-47 [facility] Comment on above: Performed By: #### SANTOSH SALEEM, , 2776-10 #### [facility] ([id number]) [address], [address] [place] [address] Hemoglobin (Bld) [Mass/Vol] 12.1 g/dL Normal 11.7-15.5 [facility] Comment on above: Performed By: #### SANTOSH SALEEM, , 2776-10 #### [facility] ([id number]) [address], [address] [place] [address] Lymphocytes (Bld) [#/Vol] 2.5 10*3/uL Normal 1.0-3.5 [facility] Comment on above: Performed By: #### SANTOSH SALEEM, , 2776-10 #### [facility] ([id number]) [address], [address] [place] [address] Lymphocytes/100 WBC (Bld) 17.9 % Normal [facility] Comment on above: Performed By: #### C SRINI, BMP, , 2776-10 #### [facility] ([id number]) [address], [address] [place] [address] MCH (RBC) [Entitic mass] 24.4 pg Low 27-34 [facility] Comment on above: Performed By: #### C SRINI, BMP, , 2776-10 #### [facility] ([id number]) [address], [address] [place] [address] MCHC (RBC) [Mass/Vol] 32.0 g/dL Normal 32-36 [facility] Comment on above: Performed By: #### Timmy MILLIGAN, BMP, , 2776-10 #### [facility] ([id number]) [address], [address] [place] [address] MCV (RBC) [Entitic vol] 76 fL Low 80-100 [facility] Comment on above: Performed By: #### SANTOSH SALEEM, , 2776-10 #### [facility] ([id number]) [address], [address] [place] [address] Monocytes (Bld) [#/Vol] 1.4 10*3/uL High 0-0.9 [facility] Comment on above: Performed By: #### C SRINI, BMP, , 2776-10 #### [facility] ([id number]) [address], [address] [place] [address] Monocytes/100 WBC (Bld) 9.9 % Normal [facility] Comment on above: Performed By: #### C SRINI, BMP, , 2776-10 #### [facility] ([id number]) [address], [address] [place] [address] Neutrophils/100 WBC (Bld) 70.6 % Normal [facility] Comment on above: Performed By: #### C SRINI, BMP, , 2776-10 #### [facility] ([id number]) [address], [address] [place] [address] Platelet mean volume (Bld) [Entitic vol] 6.9 fL Low 7-12 [facility] Comment on above: Performed By: #### Timmy MILLIGAN, BMP, , 2776-10 #### [facility] ([id number]) [address], [address] [place] [address] Platelets (Bld) [#/Vol] 485 10*3/uL High 150-450 [facility] Comment on above: Performed By: #### Timmy MILLIGAN, BMP, , 2776-10 #### [facility] ([id number]) [address], [address] [place] [address] RBC COUNT 4.95 X10E12/L Normal 3.80-5.20 [facility] Comment on above: Performed By: #### Timmy MILLIGAN, BMP, , 2776-10 #### [facility] ([id number]) [address], [address] [place] [address] WBC (Bld) [#/Vol] 14.2 10*3/uL High 4.0-11.0 [facility] Comment on above: Performed By: #### Timmy MILLIGAN, BMP, , 2776-10 #### [facility] ([id number]) [address] [place] [address] CT ABDOMEN AND PELVIS W CONT on [...] Lehman MD on 02/19/2024 4:54 PM Normal [facility] LEGIONELLA URINE AGon 2023 L. pneumophila Ag IA Ql (U) LEGIONELLA URINE AG Negative (qualifier value) NEGATIVE FOR L.PNEUMOPHILA SEROGROUP 1 ANTIGEN Normal [facility] Comment on above: Performed By: #### E LEC #### [facility] ([id number]) [address], [address] [place] [address] Lactate (P timmy) [Moles/Vol]o n 02-19-2024 LACTATE W/REFLEX 1.7 mmol/L Normal 0.4-2.0 [facility] Comment on above: Result Comment: Result did not trigger repeat Lactate, re-order if needed. Performed By: #### C SANTOSH MILLIGAN, 08964-9, 2777-1 #### [facility] ([id number]) [address] [facility] [facility], [address] [place] [address] MRSA PCR NASALon 02-19-2024 MRSA DNA ELIZABETH+probe Ql (Unsp spec) Negative Normal NEG [facility] Comment on above: Performed By: #### E LEC #### [facility] ([id number]) [address] [facility], [address] [address] Natriuretic peptide B [Mass/ Vol]on 02-19-2024 Natriuretic peptide B (Bld) [Mass/Vol] 38 pg/mL Normal <100.0 [facility] Comment on above: Performed By: #### C SANTOSH MILLIGAN, , 2777-1 #### [facility] ([id number]) [address] [facility] [facility], [address] [place] [address] Nuclear Ab IA Ql (S)on 02-18 BRANDON Screen w/reflex Negative Normal NEG [facility] Comment on above: Result Comment: Testing performed using multiplex flow immunoassay. Eleven different antigens associated with systemic autoimmune diseases (dsDNA,Sm,Sm/AUTOMOBILE TAILLIGHT ASSEMBLER,AUTOMOBILE TAILLIGHT ASSEMBLER,Chromatin, SSA,SSB,Dacia-1,Scl70,Ribo P,Centromere B) are included in this screening test. Performed By: #### E LEC #### [facility] ([id number]) [address] [facility], [address] [place] [address] PROTIME AND INRon 02-19-2024 INR Coag (PPP) [Relative time] 1.1 {INR} Normal 0.8-1.1 [facility] Comment on above: Performed By: #### C SRINI, SANTOSH, , 2776-10 #### [facility] ([id number]) [address] [place] [address] PT Coag (PPP) [Time] 13.1 s Normal 9.8-13.2 [facility] Comment on above: Performed By: #### C SRINI, SANTOSH, , 2776-10 #### [facility] ([id number]) [address] [address] Procalcitonin IA [Mass/Vol]o n 02-19-2024 PROCALCITONIN 0.10 ng/mL High <0.05 [facility] Comment on above: Result Comment: NOTE <0.50 ng/mL - Low risk of severe sepsis and/or septic shock. <2.00 ng/mL - Recommend retesting within 6-24 hours. >2.00 ng/mL - High risk of sepsis and/or septic shock. Performed By: #### E LEC #### [facility] ([id number]) [address] [address] Rheumatoid factor Nephelomet ry Qn (S)on 02-19-2024 RHEUMATOID FACTOR <10 Normal <20 [facility] Comment on above: Performed By: #### E LEC #### [facility] ([id number]) [address] [address] S PNEUMONIAE AG Uon 02-19-20 24 S. pneumoniae Ag Ql (U) Negative Normal NEG [facility] Comment on above: Performed By: #### E LEC #### [facility] ([id number]) [address], [address] [place] [address] SARS/FLU A+B/RSV by NAAT/Mol [facility] 02-19-2024 SARS/FLU A+B/RSV by NAAT/Molecular FLU A [...] operators who are performing tests using either [employer] or [facility] systems and is limited to laboratories that [...] repeat. Fact Sheet for Healthcare Providers: https://www.fda.gov/media/ 517414/download Fact Sheet for Patients: https://www.fda.gov/media/ 590828/download Normal [facility] Comment on above: Performed By: #### E LEC #### [facility] ([id number]) [address], [address] [place] [address] STREP PCR THROATon S. pyogenes DNA ELIZABETH+probe Nom (Unsp spec) STREP PCR THROAT Negative (qualifier value) Streptococcus Group A NOT detected by nucleic acid amplification. Normal [facility] Comment on above: Performed By: #### E LEC #### [facility] ([id number]) [address] [place] [address] Troponin I.cardiac High sens itivity method [Mass/Vol]on 02-19-2024 1 HOUR TROP I, HIGH SENSITIVITY 4 ng/L Normal <16 [facility] Comment on above: Performed By: #### E LEC #### [facility] ([id number]) [address], [address] [place] [address] TROPONIN I, HIGH SENSITIVITY 4 ng/L Normal <16 [facility] Comment on above: Performed By: #### C BC, BMP, 68848-9, 2777-1 #### [facility] ([id number]) [address], [address] [place] [address] URINE CULTUREon 02-19-2024 Bacteria identified Cx Nom [...] Interpretation NATALIA Status DAPTOMYCIN S F Susceptible [facility] Comment on above: Performed By: #### E LEC #### [facility] ([id number]) [address] [place] [address] URN MACROSCOPIC NURon 2023 BILIRUBIN OLVIN Negative Normal NEG [facility] Comment on above: Performed By: #### E LEC #### [facility] ([id number]) [address] [place] [address] BLOOD/HGB OLVIN Small Abnormal NEG [facility] Comment on above: Performed By: #### E LEC #### [facility] ([id number]) [address] [place] [address] GLUCOSE OLVIN Negative Normal NEG [facility] Comment on above: Performed By: #### E LEC #### [facility] ([id number]) [address] [place] [address] KETONES OLVIN Negative Normal NEG [facility] Comment on above: Performed By: #### E LEC #### [facility] ([id number]) [address] [place] [address] LEUKOCYTE ESTERASE OLVIN Small Abnormal NEG Pr [facility] Comment on above: Performed By: #### E LEC #### [facility] ([id number]) [address] [place] [address] NITRITE OLVIN Negative Normal NEG [facility] Comment on above: Performed By: #### E LEC #### [facility] ([id number]) [address] [place] [address] PH OLVIN 5.5 Normal 5.0-8.5 [facility] Comment on above: Performed By: #### E LEC #### [facility] ([id number]) [address] [place] [address] PROTEIN OLVIN Negative Normal NEG [facility] Comment on above: Performed By: #### E LEC #### [facility] ([id number]) [address] [place] [address] SPECIFIC GRAVITY OLVIN 1.015 Normal 1.003-1 .03 5 [facility] Comment on above: Performed By: #### E LEC #### [facility] ([id number]) [address] [place] [address] UROBILINOGEN OLVIN 0.2 eu/dL Normal <1.1 [facility] Comment on above: Performed By: #### E LEC #### [facility] ([id number]) [address] [place] [address] VENOUS BLOOD GASon 4 GUNJAN'S TEST Normal [facility] Comment on above: Performed By: #### E LEC #### [facility] ([id number]) [address] [place] [address] Base excess Calc (Bld) [Moles/Vol] 10.0 mmol/L High 0.0-2.0 [facility] Comment on above: Performed By: #### E LEC #### [facility] ([id number]) [address] [place] [address] Body temperature 98.6 [degF] Normal 37.0 [facility] Comment on above: Performed By: #### E LEC #### [facility] ([id number]) [address] [place] [address] HCO3 (Bld) [Moles/Vol] 34.7 mmol/L High 20.0-24.0 [facility] Comment on above: Performed By: #### E LEC #### [facility] ([id number]) [address] [place] [address] INSP. O2 CONC. 30 % Normal [facility] Comment on above: Performed By: #### E LEC #### [facility] ([id number]) [address] [place] [address] Oxygen saturation in Blood 89.0 % Normal >80.0 [facility] Comment on above: Performed By: #### E LEC #### [facility] ([id number]) [address] [place] [address] OXYGEN SOURCE NC Normal [facility] Comment on above: Performed By: #### E LEC #### [facility] ([id number]) [address] [place] [address] PCO2, VENOUS 46.3 MMHG Normal 35-50 [facility] Comment on above: Performed By: #### E LEC #### [facility] ([id number]) [address] [place] [address] PH, VENOUS 7.482 High 7.320-7.42 0 [facility] Comment on above: Performed By: #### E LEC #### [facility] ([id number]) [address], [address] [place] [address] PO2, VENOUS 53 MMHG High 30-50 [facility] Comment on above: Performed By: #### E LEC #### [facility] ([id number]) [address] [place] [address] SAMPLE SITE N/A Normal [facility] Comment on above: Performed By: #### E LEC #### [facility] ([id number]) [address], [address] [place] [address] SAMPLE TYPE VENOUS Normal [facility] Comment on above: Performed By: #### E LEC #### [facility] ([id number]) [address], [address] [place] [address] XR CHEST 1 VWon 02-19-2024 XR CHEST [...] Hayes MD on 02/19/2024 3:46 PM Normal [facility] aPTT Coag (PPP) [Time]on aPTT Coag (Bld) [Time] 32 s Normal 26-37 [facility] Comment on above: Performed By: #### C BC, BMP, 59436-8, 2777-1 #### [facility] ([id number]) [address], [address] [place] [address] Basic Metabolic Panelon 01-27 Creatinine Clr Calc Pharmacy 50.21 Normal [facility] Comment on above: Result Comment: PERF ORMED BY: [place] [address] PATHOLOGIST PRODUCT DIRECTOR JORGE MURRELL M.D. Performed By: #### E SR, CBC, CMP, BNP #### [place] [address] [place] GFR/1.73 sq M.predicted MDRD (S/P/Bld) [Vol rate/Area] mL/min/{1.73_m2} Normal [facility] Comment on above: Performed By: #### E SR, CBC, CMP, BNP #### [place] [address] [place] Calcium [Mass/volume] in Ser um or PlasmaOrdered By: Lucho Grullon on 02-17-2024 Calcium [Mass/Vol] 8.5 mg/dL Low 8.6-10.3 [facility] Comment on above: Performed By: #### E SR, CBC, CMP, BNP #### [place] [address] [place] Carbon dioxide, total [Moles /volume] in Serum or PlasmaOrdered By: Lucho Grullon on 02-17-2024 CO2 [Moles/Vol] 29.4 mmol/L Normal 21.0-31.0 [facility] Comment on above: Performed By: #### E SR, CBC, CMP, BNP #### [facility] [address] Chloride [Moles/volume] in S kaveh or PlasmaOrdered By: Lucho Génesismariza on 02-17-2024 Chloride [Moles/Vol] 103 mmol/L Normal 98-107 [facility] Comment on above: Performed By: #### E SR, CBC, CMP, BNP #### [facility] [address] [place] [address] Creatinine [Mass/volume] in Serum or PlasmaOrdered By: Lucho Grullon on 02-17-2024 Creatinine [Mass/Vol] 0.90 mg/dL Normal 0.60-1.20 [facility] Comment on above: Performed By: #### E SR, CBC, CMP, BNP #### [facility] [address] [place] [address] Erythrocyte distribution wid th [Ratio] by Automated countOrdered By: Lucho Grullon on 02-17-2024 Erythrocyte distribution width (RBC) [Ratio] 18.2 % High 11.9-15.3 [facility] Comment on above: Performed By: #### E SR, CBC, CMP, BNP #### [facility] [address] [place] [address] [place] Erythrocytes [#/volume] in B lood by Automated countOrdered By: Lucho Génesismariza on 02-17-2024 RBC (Bld) [#/Vol] 4.25 10*6/uL Normal 3.60-5.00 [facility] Comment on above: Performed By: #### E SR, CBC, CMP, BNP #### [facility] [address] [place] [address] [place] Glucose [Mass/volume] in Ser um or PlasmaOrdered By: Lucho Grullon on 02-17-2024 Glucose [Mass/Vol] 85 mg/dL Normal 70-100 [facility] Comment on above: ADA recommended refe rence rangeRandom Glucose Reference Range is dependent on time and content of last meal. Glucose of more than 200 mg/dL in a nonstressed, ambulatory subject supports the diagnosis of Diabetes Mellitus. Result Comment: [place] Glucose Reference Range is dependent on time and content of last meal. Glucose of more than 200 mg/dL in a nonstressed, ambulatory subject supports the diagnosis of Diabetes Mellitus. ADA recommended reference range Performed By: #### E SR, CBC, CMP, BNP #### [address] Hematocrit [Volume Fraction] of Blood by Automated countOrdered By: Lucho Grullon on 02-17-2024 Hematocrit (Bld) [Volume fraction] 32.8 % Low 34.0-46.4 [facility] Comment on above: Performed By: #### E SR, CBC, CMP, BNP #### [address] Hemoglobin [Mass/volume] in BloodOrdered By: Lucho Grullon on 02-17-2024 Hemoglobin (Bld) [Mass/Vol] 10.6 g/dL Low 11.8-15.4 [facility] Comment on above: Performed By: #### E SR, CBC, CMP, BNP #### [address] Hemogram CBC Without Diffon 02-17-2024 Mean Corpuscular HGB Conc 32.3 g/dL Normal 32.0-35.0 [facility] Comment on above: Performed By: #### E SR, CBC, CMP, BNP #### [address] WBC (Bld) [#/Vol] 10.9 10*3/uL Normal 3.8-11.6 [facility] Comment on above: Performed By: #### E SR, CBC, CMP, BNP #### [address] Leukocytes [#/volume] correc juma for nucleated erythrocytes in Blood by Automated counOrdered By: Lucho Génesismariza on 02-17-2024 WBC corrected for nucl RBC Auto (Bld) [#/Vol] 10.9 10*3/uL 3.8-11.6 [facility] MCH [Entitic mass] by Automa juma countOrdered By: Lucho Génesismariza on 02-17-2024 MCH (RBC) [Entitic mass] 24.9 pg Normal 24.7-34.3 [facility] Comment on above: Performed By: #### E SR, CBC, CMP, BNP #### [facility] [address] [place] [address] MCHC Auto (RBC) [Mass/Vol]Or dered By: Lucho Grullon on 02-17-2024 MCHC (RBC) [Mass/Vol] 32.3 g/dL 32.0-35.0 [facility] MCV [Entitic volume] by Auto mated countOrdered By: Lucho Grullon on 02-17-2024 MCV (RBC) [Entitic vol] 77.2 fL Low 80-100 [facility] Comment on above: Performed By: #### E SR, CBC, CMP, BNP #### [facility] [address] [place] [address] No Panel InformationOrdered By: Lucho Grullon on 02-17-2024 Estimated GFR (CKD-EPI) > 60.0 mL/Min [facility] Creatinine Clearance (Chem 50.21 [facility] Platelet mean volume [Entiti c volume] in Blood by Automated countOrdered By: Lucho Grullon on 02-17-2024 Platelet mean volume (Bld) [Entitic vol] 6.9 fL Normal 6.3-10.7 [facility] Comment on above: Result Comment: PERF ORMED BY: [place] [address] PATHOLOGIST PRODUCT DIRECTOR JORGE MURRELL M.D. Performed By: #### E SR, CBC, CMP, BNP #### [facility] [address] [place] [address] Platelets [#/volume] in Bloo d by Automated countOrdered By: Juneharini Jaquelinsylvia on 02-17-2024 Platelets (Bld) [#/Vol] 370 10*3/uL Normal 150-450 [facility] Comment on above: Performed By: #### E SR, CBC, CMP, BNP #### [facility] [address] [place] [address] Potassium [Moles/volume] in Serum or PlasmaOrdered By: Juneharini Jaquelinsylvia on 02-17-2024 Potassium [Moles/Vol] 4.2 mmol/L Normal 3.5-5.1 [facility] Comment on above: Performed By: #### E SR, CBC, CMP, BNP #### [address] Serum or plasma anion gap de terminationOrdered By: Juneharini Jaquelinsylvia on 02-17-2024 Anion gap [Moles/Vol] 10.8 mmol/L Normal 6.0-15.0 [facility] Comment on above: Performed By: #### E SR, CBC, CMP, BNP #### [facility] [address] [place] [address] Sodium [Moles/volume] in Ser um or PlasmaOrdered By: Juneharini Jaquelinsylvia on 02-17-2024 Sodium [Moles/Vol] 139 mmol/L Normal 136-145 [facility] Comment on above: Performed By: #### E SR, CBC, CMP, BNP #### [facility] [address] [place] [address] [place] Urea nitrogen [Mass/volume] in Serum or PlasmaOrdered By: Juneharini Jaquelinsylvia on 02-17-2024 Urea nitrogen [Mass/Vol] 8 mg/dL Normal 7-25 [facility] Comment on above: Performed By: #### E SR, CBC, CMP, BNP #### [facility] [address] [place] [address] Aerobic Cultureon 02-16-2024 Aerobic Culture Light Normal Respira tory Kimberly 2 Days Gram Stain Result 3+ White Blood Cells 1+ Epithelial Cells 2+ Gram Positive Cocci 1+ Yeast Like Elements PERFORMED BY: [place] [address] PATHOLOGIST PRODUCT DIRECTOR JORGE MURRELL M.D. Normal [facility] Comment on above: Performed By: #### E SR, CBC, CMP, BNP #### [facility] [address] Basic Metabolic Panelon 04-2 Anion gap [Moles/Vol] 9.6 mmol/L Normal 6.0-15.0 [facility] Comment on above: Performed By: #### E SR, CBC, CMP, BNP #### [address] Calcium [Mass/Vol] 8.5 mg/dL Low 8.6-10.3 [facility] Comment on above: Performed By: #### E SR, CBC, CMP, BNP #### [address] Chloride [Moles/Vol] 103 mmol/L Normal 98-107 [facility] Comment on above: Performed By: #### E SR, CBC, CMP, BNP #### [address] CO2 [Moles/Vol] 27.3 mmol/L Normal 21.0-31.0 [facility] Comment on above: Performed By: #### E SR, CBC, CMP, BNP #### [place] [address] [place] Creatinine [Mass/Vol] 0.92 mg/dL Normal 0.60-1.20 [facility] Comment on above: Performed By: #### E SR, CBC, CMP, BNP #### [facility] [address] [place] [address] [place] Creatinine Clr Calc Pharmacy 47.75 Normal [facility] Comment on above: Result Comment: PERF ORMED BY: [place] [address] PATHOLOGIST PRODUCT DIRECTOR JORGE MURRELL M.D. Performed By: #### E SR, CBC, CMP, BNP #### [facility] [address] [place] [address] [place] GFR/1.73 sq M.predicted MDRD (S/P/Bld) [Vol rate/Area] mL/min/{1.73_m2} Normal [facility] Comment on above: Performed By: #### E SR, CBC, CMP, BNP #### [address] Glucose [Mass/Vol] 83 mg/dL Normal 70-100 [facility] Comment on above: Result Comment: [place] Glucose Reference Range is dependent on time and content of last meal. Glucose of more than 200 mg/dL in a nonstressed, ambulatory subject supports the diagnosis of Diabetes Mellitus. ADA recommended reference range Performed By: #### E SR, CBC, CMP, BNP #### [address] Potassium [Moles/Vol] 3.9 mmol/L Normal 3.5-5.1 [facility] Comment on above: Performed By: #### E SR, CBC, CMP, BNP #### [place] [address] [place] Sodium [Moles/Vol] 136 mmol/L Normal 136-145 [facility] Comment on above: Performed By: #### E SR, CBC, CMP, BNP #### [place] [address] [place] Urea nitrogen [Mass/Vol] 9 mg/dL Normal 7-25 [facility] Comment on above: Performed By: #### E SR, CBC, CMP, BNP #### [place] [address] [place] Gram stain for investigation of transfusion reactionOrdered By: Lucho Grullon on 02-16-2024 Microscopic observation Gram stain Nom (Unsp spec) 1 Day [facility] Hemogram CBC Without Diffon 02-16-2024 Erythrocyte distribution width (RBC) [Ratio] 18.3 % High 11.9-15.3 [facility] Comment on above: Performed By: #### E SR, CBC, CMP, BNP #### [address] [address] [place] Hematocrit (Bld) [Volume fraction] 33.8 % Low 34.0-46.4 [facility] Comment on above: Performed By: #### E SR, CBC, CMP, BNP #### [address] Hemoglobin (Bld) [Mass/Vol] 10.6 g/dL Low 11.8-15.4 [facility] Comment on above: Performed By: #### E SR, CBC, CMP, BNP #### [address] MCH (RBC) [Entitic mass] 24.1 pg Low 24.7-34.3 [facility] Comment on above: Performed By: #### E SR, CBC, CMP, BNP #### [address] MCV (RBC) [Entitic vol] 76.8 fL Low 80-100 [facility] Comment on above: Performed By: #### E SR, CBC, CMP, BNP #### [address] Mean Corpuscular HGB Conc 31.4 g/dL Low 32.0-35.0 [facility] Comment on above: Performed By: #### E SR, CBC, CMP, BNP #### [address] Platelet mean volume (Bld) [Entitic vol] 7.1 fL Normal 6.3-10.7 [facility] Comment on above: Result Comment: PERF ORMED BY: [place] [address] PATHOLOGIST PRODUCT DIRECTOR JORGE MURRELL M.D. Performed By: #### E SR, CBC, CMP, BNP #### [address] Platelets (Bld) [#/Vol] 373 10*3/uL Normal 150-450 [facility] Comment on above: Performed By: #### E SR, CBC, CMP, BNP #### [address] RBC (Bld) [#/Vol] 4.41 10*6/uL Normal 3.60-5.00 [facility] Comment on above: Performed By: #### E SR, CBC, CMP, BNP #### [address] WBC (Bld) [#/Vol] 11.1 10*3/uL Normal 3.8-11.6 [facility] Comment on above: Performed By: #### E SR, CBC, CMP, BNP #### [address] Basic Metabolic Panelon 01-27-2023 Anion gap [Moles/Vol] 9.8 mmol/L Normal 6.0-15.0 [facility] Comment on above: Performed By: #### E SR, CBC, CMP, BNP #### [address] Calcium [Mass/Vol] 8.4 mg/dL Low 8.6-10.3 [facility] Comment on above: Performed By: #### E SR, CBC, CMP, BNP #### [address] Chloride [Moles/Vol] 103 mmol/L Normal 98-107 [facility] Comment on above: Performed By: #### E SR, CBC, CMP, BNP #### [address] CO2 [Moles/Vol] 28.7 mmol/L Normal 21.0-31.0 [facility] Comment on above: Performed By: #### E SR, CBC, CMP, BNP #### [address] Creatinine [Mass/Vol] 1.16 mg/dL Normal 0.60-1.20 [facility] Comment on above: Performed By: #### E SR, CBC, CMP, BNP #### [address] Creatinine Clr Calc Pharmacy 37.75 Normal [facility] Comment on above: Performed By: #### E SR, CBC, CMP, BNP #### [facility] [address] GFR/1.73 sq M.predicted MDRD (S/P/Bld) [Vol rate/Area] 48.257 mL/min/{1.73_m2} Normal [facility] Comment on above: Performed By: #### E SR, CBC, CMP, BNP #### [address] Glucose [Mass/Vol] 79 mg/dL Normal 70-100 [facility] Comment on above: Result Comment: [facility] Glucose Reference Range is dependent on time and content of last meal. Glucose of more than 200 mg/dL in a nonstressed, ambulatory subject supports the diagnosis of Diabetes Mellitus. ADA recommended reference range Performed By: #### E SR, CBC, CMP, BNP #### [facility] [address] Potassium [Moles/Vol] 3.5 mmol/L Normal 3.5-5.1 [facility] Comment on above: Performed By: #### E SR, CBC, CMP, BNP #### [facility] [address] [place] [address] [place] Sodium [Moles/Vol] 138 mmol/L Normal 136-145 [facility] Comment on above: Performed By: #### E SR, CBC, CMP, BNP #### [address] Urea nitrogen [Mass/Vol] 14 mg/dL Normal 7-25 [facility] Comment on above: Performed By: #### E SR, CBC, CMP, BNP #### [facility] [address] Clostridioides difficile tox in B tcdB gene [Presence] in Stool by ELIZABETH with probe deteOrdered By: Lucho Grullon on 02-15-2024 C. difficile toxin B tcdB gene ELIZABETH+probe Ql (Stl) Negative Negative [facility] Comment on above: Testing performed by RT-PCR Clostridium Difficileon 01-27 Clostridium Difficile Negative Normal Negative [facility] Comment on above: Order Comment: > or = to 3 loose/watery stools in the last 24 HRS? Y Is patient on promotility agents or tube feeding? N Result Comment: Test ing performed by RT-PCR PERFORMED BY: [place] [address] PATHOLOGIST PRODUCT DIRECTOR JORGE MURRELL M.D. Performed By: #### E SR, CBC, CMP, BNP #### [address] Hemogram CBC Without Diffon 02-15-2024 Erythrocyte distribution width (RBC) [Ratio] 18.2 % High 11.9-15.3 [facility] Comment on above: Performed By: #### E SR, CBC, CMP, BNP #### [address] Hematocrit (Bld) [Volume fraction] 34.6 % Normal 34.0-46.4 [facility] Comment on above: Performed By: #### E SR, CBC, CMP, BNP #### [address] Hemoglobin (Bld) [Mass/Vol] 10.9 g/dL Low 11.8-15.4 [facility] Comment on above: Performed By: #### E SR, CBC, CMP, BNP #### [address] MCH (RBC) [Entitic mass] 24.2 pg Low 24.7-34.3 [facility] Comment on above: Performed By: #### E SR, CBC, CMP, BNP #### [address] MCV (RBC) [Entitic vol] 77.1 fL Low 80-100 [facility] Comment on above: Performed By: #### E SR, CBC, CMP, BNP #### [address] Mean Corpuscular HGB Conc 31.4 g/dL Low 32.0-35.0 [facility] Comment on above: Performed By: #### E SR, CBC, CMP, BNP #### [address] Platelet mean volume (Bld) [Entitic vol] 7.0 fL Normal 6.3-10.7 [facility] Comment on above: Result Comment: PERF ORMED BY: [place] [address] PATHOLOGIST PRODUCT DIRECTOR JORGE MURRELL M.D. Performed By: #### E SR, CBC, CMP, BNP #### [address] Platelets (Bld) [#/Vol] 333 10*3/uL Normal 150-450 [facility] Comment on above: Performed By: #### E SR, CBC, CMP, BNP #### [address] RBC (Bld) [#/Vol] 4.48 10*6/uL Normal 3.60-5.00 [facility] Comment on above: Performed By: #### E SR, CBC, CMP, BNP #### [address] WBC (Bld) [#/Vol] 10.0 10*3/uL Normal 3.8-11.6 [facility] Comment on above: Performed By: #### E SR, CBC, CMP, BNP #### [address] Lactoferrin, Stool WBCon Lactoferrin, Stool WBC LACTOFERRIN Positive for Fecal Lactoferrin Review patient history for chronic inflammatory conditions and status which can cause positive results unrelated to acute infectious disease. -- Reference range = Negative PERFORMED BY: [place] [address] PATHOLOGIST PRODUCT DIRECTOR JORGE MURRELL M.D. Normal [facility] Comment on above: Performed By: #### E SR, CBC, CMP, BNP #### [address] Magnesium [Mass/volume] in S kaveh or PlasmaOrdered By: Lucho Grullon on 02-15-2024 Magnesium [Mass/Vol] 1.5 mg/dL Low 1.9-2.7 [facility] Comment on above: Result Comment: PERF ORMED BY: [place] [address] PATHOLOGIST PRODUCT DIRECTOR JORGE MURRELL M.D. Performed By: #### E SR, CBC, CMP, BNP #### [address] Stool Cultureon 02-15-2024 Stool culture Negative for Shiga T oxin 1 Negative for Shiga Toxin 2 -- A negative Shiga Toxin result may occur if the antigen level in the specimen is below the detection limit of the assay. Stool culture results No Salmonella, Shigella, Campy or E. coli 0157:H7 Isolated PERFORMED BY: [place] [address] PATHOLOGIST PRODUCT DIRECTOR JORGE MURRELL M.D. Normal [facility] Comment on above: Performed By: #### E SR, CBC, CMP, BNP #### [address] Stool bacteria identificatio n by cultureOrdered By: Lucho Grullon on 02-15-2024 Bacteria identified Cx Nom (Stl) [facility] Stool lactoferrin detectionO rdered By: Lucho Grullon on 02-15-2024 Lactoferrin Ql (Stl) [facility] US venous duplex LE RTon US venous duplex LE RT [facility] [address] Ultrasound Report Signed Patient: Gera Perdue MR#: [id number] : 1945 Acct:[id number] Age/Sex: 78 / F ADM Date: 02/14/24 Loc: Room: [address] [place] [address] Type: ADM IN Attending Dr: Lucho Grullon [...] Hilario Angulo MD02/15/2024 11:55 AM Dictation Location: [place] [address] Tech: Elizabethjudit Garcia Transcribed By: ANA 02/15/24 1155 Dictated By: Hilario Angulo MD 02/15/24 1154 Signed By: 02/15/24 1155 Normal [facility] Alanine aminotransferase [En zymatic activity/volume] in Serum or PlasmaOrdered By: Kadie Jones on 02-14-2024 ALT [Catalytic activity/Vol] 5 U/L Low 7-52 [facility] Comment on above: Performed By: #### S CAN CBC, LIPASE, CMP, HS TROP, MG, NORMA #### [facility] [address] Albumin [Mass/volume] in Ser um or Plasma by Bromocresol green (BCG) dye binding methoOrdered By: Kadie Hungjessicaore on 02-14-2024 Albumin BCG dye [Mass/Vol] 3.7 g/dL 3.5-5.7 [facility] Alkaline phosphatase [Enzyma tic activity/volume] in Serum or PlasmaOrdered By: Kadie Bullimore on 02-14-2024 ALP [Catalytic activity/Vol] 75 U/L Normal 34-104 [facility] Comment on above: Performed By: #### S CAN CBC, LIPASE, CMP, HS TROP, MG, NORMA #### [address] Amylase [Enzymatic activity/ volume] in Serum or PlasmaOrdered By: Kadie Bullimore on 02-14-2024 Amylase [Catalytic activity/Vol] 10 U/L Low 29-103 [facility] Comment on above: Performed By: #### S CAN CBC, LIPASE, CMP, HS TROP, MG, NORMA #### [facility] [address] [place] [address] Aspartate aminotransferase [ Enzymatic activity/volume] in Serum or PlasmaOrdered By: Kadie Hungimore on 02-14-2024 AST [Catalytic activity/Vol] 11 U/L Low 13-39 [facility] Comment on above: Performed By: #### S CAN CBC, LIPASE, CMP, HS TROP, MG, NORMA #### [facility] [address] [place] [address] Automated basophil %Ordered By: Kadie Hunglamonte on 02-14-2024 Basophils/100 WBC (Bld) 0.9 % Normal . [facility] Comment on above: Performed By: #### S CAN CBC, LIPASE, CMP, HS TROP, MG, NORMA #### [address] Automated basophil countOrde red By: Kadie Hungjessicaore on 02-14-2024 Basophils (Bld) [#/Vol] 0.1 10*3/uL Normal 0.0-0.2 [facility] Comment on above: Result Comment: PERF ORMED BY: [place] [address] PATHOLOGIST PRODUCT DIRECTOR JORGE MURRELL M.D. Performed By: #### S CAN CBC, LIPASE, CMP, HS TROP, MG, NORMA #### [address] Automated blood monocyte cou ntOrdered By: Kadie Karen on 02-14-2024 Monocytes (Bld) [#/Vol] 1.7 10*3/uL High 0.0-0.8 [facility] Comment on above: Performed By: #### S CAN CBC, LIPASE, CMP, HS TROP, MG, NORMA #### [address] Automated eosinophil %Ordere d By: Kadie Betzaidaore on 02-14-2024 Eosinophils/100 WBC (Bld) 0.4 % Normal . [facility] Comment on above: Performed By: #### S CAN CBC, LIPASE, CMP, HS TROP, MG, NORMA #### [address] Automated eosinophil countOr dered By: Kadie Jones on 02-14-2024 Eosinophils (Bld) [#/Vol] 0.0 10*3/uL Normal 0.0-0.45 [facility] Comment on above: Performed By: #### S CAN CBC, LIPASE, CMP, HS TROP, MG, NORMA #### [address] Automated erythrocytes count in urine sediment (number/area)Ordered By: Kadie Bullimore on 02-14-2024 RBC Auto (Urine sed) [#/Area] 0-1 [HPF] 0-4 [facility] Automated leukocytes count i n urine sediment (number/area)Ordered By: Kadie Bullimore on 02-14-2024 WBC Auto (Urine sed) [#/Area] 50-100 [HPF] 0-4 [facility] Automated monocyte %Ordered By: Kadie Bullimore on 02-14-2024 Monocytes/100 WBC (Bld) 12.3 % Normal . [facility] Comment on above: Performed By: #### S CAN CBC, LIPASE, CMP, HS TROP, MG, NORMA #### [address] Automated neutrophil %Ordere d By: Kadie Jones on 02-14-2024 Neutrophils/100 WBC (Bld) 62.7 % Normal . [facility] Comment on above: Performed By: #### S CAN CBC, LIPASE, CMP, HS TROP, MG, NORMA #### [address] Automated urine color determ inationOrdered By: Kadie Jones on 02-14-2024 Color (U) Dark yellow Critically abnormal Yellow [facility] Comment on above: Order Comment: Name Collection Type:: Straight Catheter Performed By: #### E SR, CBC, CMP, BNP #### [address] BNP ser/plasOrdered By: Bianca Jones on 02-14-2024 Natriuretic peptide B (Bld) [Mass/Vol] 29.0 pg/mL Normal 5-100 [facility] Comment on above: Result Comment: PERF ORMED BY: [place] [address] PATHOLOGIST PRODUCT DIRECTOR JORGE MURRELL M.D. Performed By: #### E SR, CBC, CMP, BNP #### [address] Bilirubin Test strip Ql (U)O rdered By: Kadie Jones on 02-14-2024 Bilirubin Ql (U) Negative Negative [facility] Bilirubin.total [Mass/volume ] in Serum or PlasmaOrdered By: Kadie Jones on 02-14-2024 Bilirubin [Mass/Vol] 0.5 mg/dL Normal 0.3-1.0 [facility] Comment on above: Performed By: #### S CAN CBC, LIPASE, CMP, HS TROP, MG, NORMA #### [address] Blood Cultureon 02-14-2024 Bacteria identified Cx Nom (Bld) NO GROWTH 5 DAYS PERFORMED BY: [place] [address] PATHOLOGIST PRODUCT DIRECTOR JORGE MURRELL M.D. Normal [facility] Comment on above: Performed By: #### E SR, CBC, CMP, BNP #### [facility] [address] [place] [address] Bacteria identified Cx Nom (Bld) NO GROWTH 5 DAYS PERFORMED BY: [place] [address] PATHOLOGIST PRODUCT DIRECTOR JORGE MURRELL M.D. Normal [facility] Comment on above: Performed By: #### E SR, CBC, CMP, BNP #### [facility] [address] [place] [address] COVID CepheidOrdered By: Abbi Jones on 02-14-2024 SARS-CoV-2 (COVID-19) Ab IA Ql Negative Negative [facility] Comment on above: This is a duplicate Cepheid Xpert Xpress CoV-2/Flu/RSV Plus RNA by RT-PCR result to be used for statistical tracking purpose only. SARS-CoV-2 (COVID-19) RNA ELIZABETH+probe Ql (Unsp spec) [facility] COVID-19 / Flu A/B / [...] or Cepheid Disclaimer revoked sooner. PERFORMED BY: [place] [address] PATHOLOGIST PRODUCT DIRECTOR JORGE MURRELL M.D. Normal [facility] Comment on above: Performed By: #### E SR, CBC, CMP, BNP #### [place] [id number] [facility] CT abdomen pelvis w zach CT abdomen pelvis w [facility] [place] [address] CT Scan Report Signed Patient: Gera Perdue MR#: [id number] : 1945 Acct:[id number] Age/Sex: 78 / F ADM Date: 02/14/24 Loc: ER Room: Type: [facility] ER Attending Dr: Copies to: CHIP [...] Bhavesh Avendaño M.D.02/14/2024 2:21 PM Dictation Location: [place] [address] Transcribed By: [facility] 02/14/24 1421 Dictated By: Bhavesh Avendaño II, MD 02/14/24 1411 Signed By: 02/14/24 1421 Normal [facility] Calcium [Mass/volume] in Ser um or PlasmaOrdered By: Kadie Jones on 02-14-2024 Calcium [Mass/Vol] 9.5 mg/dL Normal 8.6-10.3 [facility] Comment on above: Performed By: #### S CAN CBC, LIPASE, CMP, HS TROP, MG, NORMA #### [facility] [address] [place] [address] Carbon dioxide, total [Moles /volume] in Serum or PlasmaOrdered By: Kadie Jones on 02-14-2024 CO2 [Moles/Vol] 30.8 mmol/L Normal 21.0-31.0 [facility] Comment on above: Performed By: #### S CAN CBC, LIPASE, CMP, HS TROP, MG, NORMA #### [facility] [address] Cepheid COVID PCR Negativeon 02-14-2024 SARS-CoV-2 (COVID-19) RNA ELIZABETH+probe Ql (Unsp spec) Negative Normal Negative [facility] Comment on above: Result Comment: This is a duplicate Cepheid Xpert Xpress CoV-2/Flu/RSV Plus RNA by RT-PCR result to be used for statistical tracking purpose only. PERFORMED BY: [place] [address] PATHOLOGIST PRODUCT DIRECTOR JORGE MURRELL M.D. Performed By: #### E SR, CBC, CMP, BNP #### [address] Chloride [Moles/volume] in S kaveh or PlasmaOrdered By: Kadie Bullimore on 02-14-2024 Chloride [Moles/Vol] 97 mmol/L Low 98-107 [facility] Comment on above: Performed By: #### S CAN CBC, LIPASE, CMP, HS TROP, MG, NORMA #### [address] Comprehensive Metabolic Pane harsha 02-14-2024 Albumin [Mass/Vol] 3.7 g/dL Normal 3.5-5.7 [facility] Comment on above: Performed By: #### S CAN CBC, LIPASE, CMP, HS TROP, MG, NORMA #### [address] Creatinine Clr Calc Pharmacy 32.86 Normal [facility] Comment on above: Performed By: #### S CAN CBC, LIPASE, CMP, HS TROP, MG, NORMA #### [address] GFR/1.73 sq M.predicted MDRD (S/P/Bld) [Vol rate/Area] 41.325 mL/min/{1.73_m2} Normal [facility] Comment on above: Performed By: #### S CAN CBC, LIPASE, CMP, HS TROP, MG, NORMA #### [address] Creatinine [Mass/volume] in Serum or PlasmaOrdered By: Kadie Bullimore on 02-14-2024 Creatinine [Mass/Vol] 1.32 mg/dL High 0.60-1.20 [facility] Comment on above: Performed By: #### S CAN CBC, LIPASE, CMP, HS TROP, MG, NORMA #### [address] Dipstick and Microscopicon 0 02-14-2024 Appearance (U) Clear Normal Clear [facility] Comment on above: Order Comment: Name Collection Type:: Straight Catheter Performed By: #### E SR, CBC, CMP, BNP #### [address] Bacteria,Urine 4+ High None Seen [facility] Comment on above: Order Comment: Name Collection Type:: Straight Catheter Performed By: #### E SR, CBC, CMP, BNP #### [address] Bilirubin,Urine Negative Normal Negative [facility] Comment on above: Order Comment: Name Collection Type:: Straight Catheter Performed By: #### E SR, CBC, CMP, BNP #### [address] Glucose Ql (U) Normal Normal Normal [facility] Comment on above: Order Comment: Name Collection Type:: Straight Catheter Performed By: #### E SR, CBC, CMP, BNP #### [address] Hyaline Casts,Urine 9-19 High 0-8 [facility] Comment on above: Order Comment: Name Collection Type:: Straight Catheter Result Comment: PERF ORMED BY: [place] [address] PATHOLOGIST PRODUCT DIRECTOR JORGE MURRELL M.D. Performed By: #### E SR, CBC, CMP, BNP #### [address] Ketones Ql (U) Trace High Negative [facility] Comment on above: Order Comment: Name Collection Type:: Straight Catheter Performed By: #### E SR, CBC, CMP, BNP #### [address] Leukocyte esterase Test strip Ql (U) 3+ High Negative [facility] Comment on above: Order Comment: Name Collection Type:: Straight Catheter Performed By: #### E SR, CBC, CMP, BNP #### [address] Nitrite,Urine Positive High Negative [facility] Comment on above: Order Comment: Name Collection Type:: Straight Catheter Performed By: #### E SR, CBC, CMP, BNP #### [address] Occult Blood,Urine Trace High Negative [facility] Comment on above: Order Comment: Name Collection Type:: Straight Catheter Result Comment: PERF ORMED BY: [place] [address] PATHOLOGIST PRODUCT DIRECTOR JORGE MURRELL M.D. Performed By: #### E SR, CBC, CMP, BNP #### [address] RBC LM.HPF (Urine sed) [#/Area] 0 /[HPF] Normal 0-4 [facility] Comment on above: Order Comment: Name Collection Type:: Straight Catheter Performed By: #### E SR, CBC, CMP, BNP #### [address] Specificy [place],Urine 1.024 Normal 1.001-1.03 0 [facility] Comment on above: Order Comment: Name Collection Type:: Straight Catheter Performed By: #### E SR, CBC, CMP, BNP #### [address] Squamous Epithelial Cell,Urine None Seen Normal 0-2 [facility] Comment on above: Order Comment: Name Collection Type:: Straight Catheter Performed By: #### E SR, CBC, CMP, BNP #### [address] Urobilinogen,Urine Normal Normal Normal [facility] Comment on above: Order Comment: Name Collection Type:: Straight Catheter Performed By: #### E SR, CBC, CMP, BNP #### [address] WBC,Urine 50-100 High 0-4 [facility] Comment on above: Order Comment: Name Collection Type:: Straight Catheter Performed By: #### E SR, CBC, CMP, BNP #### [address] ECG 12 lead ECGon 02-14-2024 ECG 12 lead ECG [facility] Main [place] [address] [place] [address] Electrocardiograph Report Signed Patient: Gera Perdue MR#: [id number] : 1945 Acct:[id number] Age/Sex: 78 / F ADM Date: 02/14/24 Loc: ER Room: Type: [facility] ER Attending Dr: Ordering Provider: CHIP [...] was found Confirmed by MARSHALL DOMINGUEZ DO ([id number]) on 02/14/2024 3:23:36 PM Referred By: Electronically Signed By:MARSHALL DOMINGUEZ DO Transcribed By: MUS Signed By Marshall Dominguez DO 02/13 1523 Normal [facility] Erythrocyte distribution wid th [Ratio] by Automated countOrdered By: Kadie Jones on 02-14-2024 Erythrocyte distribution width (RBC) [Ratio] 18.4 % High 11.9-15.3 [facility] Comment on above: Performed By: #### S CAN CBC, LIPASE, CMP, HS TROP, MG, NORMA #### [facility] [address] [place], [place] [id number] [facility] Erythrocytes [#/volume] in B lood by Automated countOrdered By: Kadie Jones on 02-14-2024 RBC (Bld) [#/Vol] 5.04 10*6/uL High 3.60-5.00 [facility] Comment on above: Performed By: #### S CAN CBC, LIPASE, CMP, HS TROP, MG, NORMA #### [facility] [address] [place] [address] Glucose [Mass/volume] in Ser um or PlasmaOrdered By: Kadie Jones on 02-14-2024 Glucose [Mass/Vol] 85 mg/dL Normal 70-100 [facility] Comment on above: ADA recommended refe rence rangeRandom Glucose Reference Range is dependent on time and content of last meal. Glucose of more than 200 mg/dL in a nonstressed, ambulatory subject supports the diagnosis of Diabetes Mellitus. Result Comment: [place] Glucose Reference Range is dependent on time and content of last meal. Glucose of more than 200 mg/dL in a nonstressed, ambulatory subject supports the diagnosis of Diabetes Mellitus. ADA recommended reference range Performed By: #### S CAN CBC, LIPASE, CMP, HS TROP, MG, NORMA #### [facility] [address] [place] [address] Hematocrit [Volume Fraction] of Blood by Automated countOrdered By: Kadie Jones on 02-14-2024 Hematocrit (Bld) [Volume fraction] 38.5 % Normal 34.0-46.4 [facility] Comment on above: Performed By: #### S CAN CBC, LIPASE, CMP, HS TROP, MG, NORMA #### [facility] [address] [place] [address] Hemoglobin [Mass/volume] in BloodOrdered By: Kadie Jones on 02-14-2024 Hemoglobin (Bld) [Mass/Vol] 12.2 g/dL Normal 11.8-15.4 [facility] Comment on above: Performed By: #### S CAN CBC, LIPASE, CMP, HS TROP, MG, NORMA #### [address] Ketones Auto test strip (U) [Mass/Vol]Ordered By: Kadie Jones on 02-14-2024 Ketones (U) [Mass/Vol] Trace Negative [facility] Laboratory - UrinalysisOrder ed By: Kadie Jones on 02-14-2024 Hyaline casts LM Ql (Urine sed) 9-19 [LPF] 0-8 [facility] Lactate [Moles/volume] in Se rum or PlasmaOrdered By: Kadie Jones on 02-14-2024 Lactate [Moles/Vol] 0.8 mmol/L Normal 0.5-2.2 [facility] Comment on above: Result Comment: PERF ORMED BY: [place] [address] PATHOLOGIST PRODUCT DIRECTOR JORGE MURRELL M.D. Performed By: #### E SR, CBC, CMP, BNP #### [facility] [address] [place] [address] Leukocytes [#/volume] correc juma for nucleated erythrocytes in Blood by Automated counOrdered By: Kadieruslan Hungimore on 02-14-2024 WBC corrected for nucl RBC Auto (Bld) [#/Vol] 13.6 10*3/uL 3.8-11.6 [facility] Leukocytes [#/volume] in Blo od by Automated countOrdered By: Kadie Hungimore on 02-14-2024 WBC (Bld) [#/Vol] 13.6 10*3/uL High 3.8-11.6 [facility] Comment on above: Performed By: #### S CAN CBC, LIPASE, CMP, HS TROP, MG, NORMA #### [facility] [address] [place] [address] Lipase [Enzymatic activity/v olume] in Serum or PlasmaOrdered By: Kadie Bullimore on 02-14-2024 Lipase [Catalytic activity/Vol] 6.0 U/L Low 11.0-82.0 [facility] Comment on above: Result Comment: PERF ORMED BY: [place] [address] PATHOLOGIST PRODUCT DIRECTOR JORGE MURRELL M.D. Performed By: #### S CAN CBC, LIPASE, CMP, HS TROP, MG, NORMA #### [facility] [address] [place] [address] [place] Lymphocytes [#/volume] in Bl ood by Automated countOrdered By: Kadie Bullimore on 02-14-2024 Lymphocytes (Bld) [#/Vol] 3.2 10*3/uL Normal 1.00-4.8 [facility] Comment on above: Performed By: #### S CAN CBC, LIPASE, CMP, HS TROP, MG, NORMA #### [address] Lymphocytes/100 leukocytes i n Blood by Automated countOrdered By: Kadie Jones on 02-14-2024 Lymphocytes/100 WBC (Bld) 23.7 % Normal . [facility] Comment on above: Performed By: #### S CAN CBC, LIPASE, CMP, HS TROP, MG, NORMA #### [address] MCH [Entitic mass] by Automa juma countOrdered By: Kadie Jones on 02-14-2024 MCH (RBC) [Entitic mass] 24.3 pg Low 24.7-34.3 [facility] Comment on above: Performed By: #### S CAN CBC, LIPASE, CMP, HS TROP, MG, NORMA #### [address] MCHC Auto (RBC) [Mass/Vol]Or dered By: Kadie Jones on 02-14-2024 MCHC (RBC) [Mass/Vol] 31.8 g/dL 32.0-35.0 [facility] MCV [Entitic volume] by Auto mated countOrdered By: Kadie Jones on 02-14-2024 MCV (RBC) [Entitic vol] 76.4 fL Low 80-100 [facility] Comment on above: Performed By: #### S CAN CBC, LIPASE, CMP, HS TROP, MG, NORMA #### [address] Magnesium [Mass/volume] in S kaveh or PlasmaOrdered By: Kadie Jones on 02-14-2024 Magnesium [Mass/Vol] 1.1 mg/dL Low 1.9-2.7 [facility] Comment on above: Performed By: #### S CAN CBC, LIPASE, CMP, HS TROP, MG, NORMA #### [address] Monocyte distribution width [Entitic volume] in Blood by AutomatedOrdered By: Kadie Jones on 02-14-2024 Monocyte distribution width Auto (Bld) [Entitic vol] 25.16 % 0.00-20.00 [facility] Comment on above: For adults in ED, MD W > 20.0 may be associated with a higher risk of sepsis during the first 12 hrs of hospital admission Neutrophils [#/volume] in Bl ood by Automated countOrdered By: Kadie Jones on 02-14-2024 Neutrophils (Bld) [#/Vol] 8.5 10*3/uL High 1.8-7.7 [facility] Comment on above: Performed By: #### S CAN CBC, LIPASE, CMP, HS TROP, MG, NORMA #### [facility] [address] Nitrite Test strip Ql (U)Ord ered By: Kadie Jones on 02-14-2024 Nitrite Ql (U) Positive Negative [facility] No Panel InformationOrdered By: Kadie Jones on 02-14-2024 Estimated GFR (CKD-EPI) 41.325 mL/Min [facility] Creatinine Clearance (Chem 32.86 [facility] Nucleated erythrocytes [Pres ence] in Blood by Automated countOrdered By: Kadie Jones on 02-14-2024 Nucleated RBC Auto Ql (Bld) 0.1 /100{WBC} 0-0.5 [facility] Platelet adequacy [Presence] in Blood by Light microscopyOrdered By: Kadie Jones on 02-14-2024 Platelets LM Ql (Bld) Normal Normal [facility] Platelet mean volume [Entiti c volume] in Blood by Automated countOrdered By: Kadie Jones on 02-14-2024 Platelet mean volume (Bld) [Entitic vol] 7.0 fL Normal 6.3-10.7 [facility] Comment on above: Performed By: #### S CAN CBC, LIPASE, CMP, HS TROP, MG, NORMA #### [facility] [address] Platelet morphology finding [Identifier] in BloodOrdered By: Kadie Jones on 04-19-2024 Platelet morphology finding Nom (Bld) Normal Normal [facility] Platelets [#/volume] in Bloo d by Automated countOrdered By: Kadie Jones on 02-14-2024 Platelets (Bld) [#/Vol] 448 10*3/uL Normal 150-450 [facility] Comment on above: Performed By: #### S CAN CBC, LIPASE, CMP, HS TROP, MG, NORMA #### [facility] [address] [place] [address] Potassium [Moles/volume] in Serum or PlasmaOrdered By: Kadie Jones on 02-14-2024 Potassium [Moles/Vol] 4.0 mmol/L Normal 3.5-5.1 [facility] Comment on above: Performed By: #### S CAN CBC, LIPASE, CMP, HS TROP, MG, NORMA #### [address] Protein [Mass/volume] in Ser um or PlasmaOrdered By: Kadie Jones on 02-14-2024 Protein [Mass/Vol] 7.9 g/dL Normal 6.4-8.9 [facility] Comment on above: Performed By: #### S CAN CBC, LIPASE, CMP, HS TROP, MG, NORMA #### [address] RBC morphologyOrdered By: Jeannie Jones on 02-14-2024 RBC morphology finding Nom (Bld) Normal Normal Normal [facility] Comment on above: Performed By: #### S CAN CBC, LIPASE, CMP, HS TROP, MG, NORMA #### [address] Scan and CBCon 02-14-2024 Mean Corpuscular HGB Conc 31.8 g/dL Low 32.0-35.0 [facility] Comment on above: Performed By: #### S CAN CBC, LIPASE, CMP, HS TROP, MG, NORMA #### [address] Monocytes/100 WBC (Bld) 25.16 % High 0.00-20.00 [facility] Comment on above: Result Comment: For adults in ED, MDW > 20.0 may be associated with a higher risk of sepsis during the first 12 hrs of hospital admission Performed By: #### S CAN CBC, LIPASE, CMP, HS TROP, MG, NORMA #### [address] NRBC% 0.1 /100{WBC} Normal 0-0.5 [facility] Comment on above: Performed By: #### S CAN CBC, LIPASE, CMP, HS TROP, MG, NORMA #### [address] Platelet Estimate Normal Normal Normal [facility] Comment on above: Performed By: #### S CAN CBC, LIPASE, CMP, HS TROP, MG, NORMA #### [address] Platelet Morphology Normal Normal Normal [facility] Comment on above: Result Comment: PERF ORMED BY: [place] [address] PATHOLOGIST PRODUCT DIRECTOR JORGE MURRELL M.D. Performed By: #### S CAN CBC, LIPASE, CMP, HS TROP, MG, NOMRA #### [address] Serum globulin measurement b y calculation (mass/volume)Ordered By: Kadie Jones on 02-14-2024 Globulin (S) [Mass/Vol] 4.2 g/dL Normal [facility] Comment on above: Performed By: #### S CAN CBC, LIPASE, CMP, HS TROP, MG, NORMA #### [address] Serum or plasma albumin/glob ulin mass ratioOrdered By: Kadie Jones on 02-14-2024 Albumin/Globulin [Mass ratio] 0.9 {ratio} [facility] Comment on above: Performed By: #### S CAN CBC, LIPASE, CMP, HS TROP, MG, NORMA #### [address] Serum or plasma anion gap de terminationOrdered By: Kadie Jones on 02-14-2024 Anion gap [Moles/Vol] 14.2 mmol/L Normal 6.0-15.0 [facility] Comment on above: Performed By: #### S CAN CBC, LIPASE, CMP, HS TROP, MG, NORMA #### [facility] [address] Sodium [Moles/volume] in Ser um or PlasmaOrdered By: Kadie Bullimore on 02-14-2024 Sodium [Moles/Vol] 138 mmol/L Normal 136-145 [facility] Comment on above: Performed By: #### S CAN CBC, LIPASE, CMP, HS TROP, MG, NORMA #### [facility] [address] Specific gravity Auto test s trip (U) [Rel density]Ordered By: Kadie Hungimore on 02-14-2024 Specific gravity (U) [Rel density] 1.024 1.001-1.03 0 [facility] Squamous epithelial cells de tection in urine sediment by light microscopyOrdered By: Kadie Jones on 02-14-2024 Epithelial cells.squamous LM Ql (Urine sed) None seen [HPF] 0-2 [facility] Troponin I High Sensitivityo n 02-14-2024 Troponin I High Sensitivity 6.5 pg/mL Normal 0.0-15.0 [facility] Comment on above: Result Comment: PERF ORMED BY: [address] [place] [address] PATHOLOGIST PRODUCT DIRECTOR JORGE MURRELL M.D. Performed By: #### S CAN CBC, LIPASE, CMP, HS TROP, MG, NORMA #### [facility] [address] Troponin I.cardiac [Mass/vol ume] in Serum or Plasma by Detection limit <= 0.01 ng/Ordered By: Kadie Jones on 02-14-2024 Troponin I.cardiac DL <= 0.01 ng/mL [Mass/Vol] 6.5 pg/mL 0.0-15.0 [facility] Urea nitrogen [Mass/volume] in Serum or PlasmaOrdered By: Kadie Jones on 02-14-2024 Urea nitrogen [Mass/Vol] 18 mg/dL Normal 7-25 [facility] Comment on above: Performed By: #### S CAN CBC, LIPASE, CMP, HS TROP, MG, NORMA #### [facility] [address] [place] [id number] [facility] Urine Cultureon 02-14-2024 Bacteria identified Cx Nom (U) ORGANISM: Klebsiella pneumoniae (O:KLEPNE) [place] Count >100,000 Aerobic NATALIA Charge (NMIC56) SUSCEPTIBILITY [...] RESISTANT TO ALL B-LACTAM DRUGS. PERFORMED BY: [facility] [address] [place] [address] PATHOLOGIST PRODUCT DIRECTOR JORGE MURRELL M.D. Normal [facility] Comment on above: Performed By: #### E SR, CBC, CMP, BNP #### [facility] [address] [place] [address] [place] Urine bacteria detection by automated methodOrdered By: Kadie Jones on 02-14-2024 Bacteria Auto Ql (U) 4+ None Seen [facility] Urine clarity by refractomet ry automatedOrdered By: Kadie Jones on 02-14-2024 Clarity Refractometry automated (U) Clear Clear [facility] Urine culture routineOrdered By: Kadei Jones on 02-14-2024 Bacteria identified Cx Nom (U) Klebsiella pneumoniae [facility] Urine glucose measurement by automated test strip (mass/volume)Ordered By: Kadie Jones on 02-14-2024 Glucose Auto test strip (U) [Mass/Vol] Normal mg/dL Normal [facility] Urine hemoglobin detection b y automated test stripOrdered By: Kadie Jones on 02-14-2024 Hemoglobin Auto test strip Ql (U) Trace Negative [facility] Urine leukocyte esterase det ection by automated test stripOrdered By: Kadie Jones on 02-14-2024 Leukocyte esterase Auto test strip Ql (U) 3+ Negative [facility] Urine pH measurement by auto mated test stripOrdered By: Kadie Jones on 02-14-2024 pH (U) 5.5 [pH] Normal 5.0-9.0 [facility] Comment on above: Order Comment: Name Collection Type:: Straight Catheter Performed By: #### E SR, CBC, CMP, BNP #### [facility] [address] [place] [address] [place] Urine protein measurement by automated test strip (mass/volume)Ordered By: Kadie Jones on 02-14-2024 Protein (U) [Mass/Vol] 30 mg/dL High Negative [facility] Comment on above: Order Comment: Name Collection Type:: Straight Catheter Performed By: #### E SR, CBC, CMP, BNP #### [facility] [address] [place] [id number] [place] Urobilinogen Auto test strip (U) [Mass/Vol]Ordered By: Kadie Jones on 02-14-2024 Urobilinogen (U) [Mass/Vol] Normal mg/dL Normal [facility] XR chest 1V portableon 02-13 XR chest 1V portable [facility] [place] [address] XRay Report Signed Patient: Gera Perdue MR#: [id number] : 1945 Acct:[id number] Age/Sex: 78 / F ADM Date: 02/14/24 Loc: ER Room: Type: [facility] ER Attending Dr: Copies to: CHIP [...] Bhavesh Avendaño M.D.02/14/2024 12:59 PM Dictation Location: [place] [address] Transcribed By: [facility] 02/14/24 1259 Dictated By: Bhavesh Avendaño II, MD 02/14/24 1257 Signed By: 02/14/24 1259 Normal [facility] C Urineon 02-01-2024 Bacteria identified Cx Nom (U) Microbiology PROCEDURE: Urine Culture [R1] SOURCE: U Random BODY SITE: COLLECTED DATE/TIME: 01/30/2024 14:39 EDT RECEIVED DATE/TIME: 01/30/2024 19:21 EDT START DATE/TIME: 01/30/2024 19:21 EDT FREE TEXT SOURCE: CHIP Ponce APRN, CHIP Ponce APRN, Renea Macdonald X FINAL REPORTS Final Report [] Verified Date/Time: 02/01/2024 09:31 EDT <10,000 cfu/ml Mixed skin contaminants Mixed kimberly (multiple species present) Performing Locations R1: This test was performed at: [facility], [address] [place] [address], [address] , , [facility] Comment on above: Performed By: #### 2 [id number] #### [facility] [address] [place] [address] [employer] 01-31-2024 Forms [id number] [facility] Physician Referralon 024 Physician Referral [id number] [facility] Ambulatory Visit Summaryon 0 01-30-2024 Ambulatory Visit Summary GERA PERDUE :1945 Visit Date:01/30/2024 Ambulatory Visit Instructions Your Diagnosis Chronic kidney disease (CKD), stage III (moderate) Female incontinence Your Care Team Attending Physician - CHIP Ponce APRN, Renae Delaney Primary Care Physician - GUSTAVO SALAS DO Referring Physician - GUSTAVO SALAS DO This Is Your Medications List [facility] [place] (Metoprolol Succinate Er 24hr 50 Mg [...] Atherosclerosis of aorta Atherosclerotic heart disease of grayling coronary artery without angina pectoris Carotid stenosis [...] you for choosing us for your care. [facility] Patient Educationon 01-30-20 Patient Education Obstetrics [...] this condition includes: ? Antibiotic medicine. ? Ovng-jbe-ltjnird medicines to treat discomfort. ? Drinking enough [...] these instructions at home: Medicines ? Take kesl-[id number] and prescription medicines only as told by [...] Document Revie (more content not included)... Normal [facility] Urology Office/Clinic Noteon 01-30-2024 Urology Office/Clinic Note Chief Complaint Parole Agent referal for incontinence HPI Staff 78 year old female referred by Dr. Salas for incontinence. Micro UA done 12/30/23. She states she thought she seen Dr. Croft before (nothing on [employer]) she just knows it was a long time ago Started at [facility] September with UTI and was transferred to [facility] in October is when they told [...] with voice recognition artificial intelligence software, specifically [employer] and or [employer]. Substitutions may have occurred due to the [...] our office. Rx sent to [facility] in [place]. - Start antibiotics today - Send urine for culture Ordered: cephalexin, 500 mg = 1 cap(s), Oral, q12hr, X 7 day(s), # 14 cap(s), Refills(s) 0, Pharmacy: [id number], 170, cm, 01/30/24 13:39:00 [...] reevaluate after procedure Ordered: Urine Culture Orders: [id number] Measure Post Void residual urine and/or bladder capacity by US- non-imaging Urnls Dip Stick Auto w/o Microscopy POC 72999 Urnls Dip Stick Auto w/o Microscopy POC 76728 Follow-up With When Contact Information CHIP Ponce APRN, Renae Delaney, FAM, URL Additional Instruction (more content not included)... Normal [facility] Comment on above: Result Comment: Elec tronically Signed By: CHIP Ponce APRN, Aurora X\.br\Date and Time Signed: 01/30/24 14:52 EDT TRANSTHORACIC ECHO (TTE) COM PLETEon 01-27-2024 TRANSTHORACIC ECHO (TTE) COMPLETE [address], Suite [facility], [place] [address] TRANSTHORACIC ECHOCARDIOGRAM REPORT Patient Name: GERA PERDUE Mary Physician: [id number] Seth Barnes MD, [facility] Study Date: 01/27/2024 Ordering Provider: [id number] JENNA ENGLE MRN/PID: [id number] Fellow: Nurse: Date of /Age: 1 1945 / 78 years Associate Sales Representative: Inessa Roche RDCS, RVT Gender: F Additional Staff: Height: 162.56 cm Admit Date: Weight: 87.09 kg Admission Status: BSA / BMI: 1.92 m2 / 32.96 kg/m2 Department Location: [facility] Blood Pressure: 126 /78 mmHg Study Type: TRANSTHORACIC ECHO (TTE) COMPLETE Diagnosis/ICD: Shortness of breath-R06.02 Indication: History of PEA-09/2023, CAD, PTCA-04/2019, COPD, HTN, Hyperlipidemia, Tobacco Abuse, Hypoxemia, Sid, CKD-Stage III, Anemia CPT Codes: Echo Complete w Full Doppler-05741 Study Detail: The following Echo studies were [...] 1.1 m/s (0.6-0.9m/s) PV Max P.5 mmHg 34001 Seth Barnes MD, [facility] Electronically signed on 01/29/2024 at 7:26:59 PM Final Normal [facility] Alanine aminotransferase [En zymatic activity/volume] in Serum or PlasmaOrdered By: Jenna Engle on 01-06-2024 ALT [Catalytic activity/Vol] 19 U/L Normal 7-52 [facility] Comment on above: Performed By: #### E SR, CBC, CMP, BNP #### [place] [address] [place] Albumin [Mass/volume] in Ser um or Plasma by Bromocresol green (BCG) dye binding methoOrdered By: Jenna Engle on 01-06-2024 Albumin BCG dye [Mass/Vol] 3.9 g/dL 3.5-5.7 [facility] Alkaline phosphatase [Enzyma tic activity/volume] in Serum or PlasmaOrdered By: Jenna Engle on 01-06-2024 ALP [Catalytic activity/Vol] 66 U/L Normal 34-104 [facility] Comment on above: Result Comment: PERF ORMED BY: [place] [address] PATHOLOGIST PRODUCT DIRECTOR JORGE MURRELL M.D. Performed By: #### E SR, CBC, CMP, BNP #### [facility] [address] [place] [address] [place] Aspartate aminotransferase [ Enzymatic activity/volume] in Serum or PlasmaOrdered By: Jenna Engle on 01-06-2024 AST [Catalytic activity/Vol] 22 U/L Normal 13-39 [facility] Comment on above: Performed By: #### E SR, CBC, CMP, BNP #### [address] Automated basophil %Ordered By: Jenna Engle on 01-06-2024 Basophils/100 WBC (Bld) 0.4 % Normal . [facility] Comment on above: Performed By: #### E SR, CBC, CMP, BNP #### [address] Automated basophil countOrde red By: Jenna Engle on 01-06-2024 Basophils (Bld) [#/Vol] 0.1 10*3/uL Normal 0.0-0.2 [facility] Comment on above: Performed By: #### E SR, CBC, CMP, BNP #### [address] Automated blood monocyte cou ntOrdered By: Jenna Engle on 01-06-2024 Monocytes (Bld) [#/Vol] 1.2 10*3/uL High 0.0-0.8 [facility] Comment on above: Performed By: #### E SR, CBC, CMP, BNP #### [address] Automated eosinophil %Ordere d By: Jenna Engle on 01-06-2024 Eosinophils/100 WBC (Bld) 0.9 % Normal . [facility] Comment on above: Performed By: #### E SR, CBC, CMP, BNP #### [address] Automated eosinophil countOr dered By: Jenna Engle on 01-06-2024 Eosinophils (Bld) [#/Vol] 0.1 10*3/uL Normal 0.0-0.45 [facility] Comment on above: Performed By: #### E SR, CBC, CMP, BNP #### [address] Automated monocyte %Ordered By: Jenna Engle on 01-06-2024 Monocytes/100 WBC (Bld) 8.7 % Normal . [facility] Comment on above: Performed By: #### E SR, CBC, CMP, BNP #### [facility] [address] [place] [address] Automated neutrophil %Ordere d By: Jenna Engle on 01-06-2024 Neutrophils/100 WBC (Bld) 59.8 % Normal . [facility] Comment on above: Performed By: #### E SR, CBC, CMP, BNP #### [address] BNP ser/plasOrdered By: Gisel Engle on 01-06-2024 Natriuretic peptide B (Bld) [Mass/Vol] 358.0 pg/mL High 5-100 [facility] Comment on above: Result Comment: PERF ORMED BY: [place] [address] PATHOLOGIST PRODUCT DIRECTOR JORGE MURRELL M.D. Performed By: #### E SR, CBC, CMP, BNP #### [address] Bilirubin.total [Mass/volume ] in Serum or PlasmaOrdered By: Jenna Engle on 01-06-2024 Bilirubin [Mass/Vol] 0.3 mg/dL Normal 0.3-1.0 [facility] Comment on above: Performed By: #### E SR, CBC, CMP, BNP #### [address] Calcium [Mass/volume] in Ser um or PlasmaOrdered By: Jenna Engle on 01-06-2024 Calcium [Mass/Vol] 9.5 mg/dL Normal 8.6-10.3 [facility] Comment on above: Performed By: #### E SR, CBC, CMP, BNP #### [facility] [address] [place] [address] Carbon dioxide, total [Moles /volume] in Serum or PlasmaOrdered By: Jenna Engle on 01-06-2024 CO2 [Moles/Vol] 31.7 mmol/L High 21.0-31.0 [facility] Comment on above: Performed By: #### E SR, CBC, CMP, BNP #### [address] Chloride [Moles/volume] in S kaveh or PlasmaOrdered By: Jenna Engle on 01-06-2024 Chloride [Moles/Vol] 108 mmol/L High 98-107 [facility] Comment on above: Performed By: #### E SR, CBC, CMP, BNP #### [address] Complete Blood Count Auto Di ffon 01-06-2024 Mean Corpuscular HGB Conc 31.6 g/dL Low 32.0-35.0 [facility] Comment on above: Performed By: #### E SR, CBC, CMP, BNP #### [address] NRBC% 0.0 /100{WBC} Normal 0-0.5 [facility] Comment on above: Performed By: #### E SR, CBC, CMP, BNP #### [address] Comprehensive Metabolic Pane harsha 01-06-2024 Albumin [Mass/Vol] 3.9 g/dL Normal 3.5-5.7 [facility] Comment on above: Performed By: #### E SR, CBC, CMP, BNP #### [address] GFR/1.73 sq M.predicted MDRD (S/P/Bld) [Vol rate/Area] 47.277 mL/min/{1.73_m2} Normal [facility] Comment on above: Performed By: #### E SR, CBC, CMP, BNP #### [address] Creatinine [Mass/volume] in Serum or PlasmaOrdered By: Jenna Engle on 01-06-2024 Creatinine [Mass/Vol] 1.18 mg/dL Normal 0.60-1.20 [facility] Comment on above: Performed By: #### E SR, CBC, CMP, BNP #### [address] ECG 12 Leadon 01-06-2024 [facility] Work Phone: Normal sinus rhythm at 62 bpm MI interval 170 ms QRS duration 80 ms QTc 401 ms. [facility] Work Phone: [facility] Work Phone: Erythrocyte Sedimentation Ra jami 01-06-2024 ESR (Bld) [Velocity] 34 mm/h High 0-29 [facility] Comment on above: Result Comment: PERF ORMED BY: [place] [address] PATHOLOGIST PRODUCT DIRECTOR JORGE MURRELL M.D. Performed By: #### E SR, CBC, CMP, BNP #### [address] Erythrocyte distribution wid th [Ratio] by Automated countOrdered By: Jenna Engle on 01-06-2024 Erythrocyte distribution width (RBC) [Ratio] 20.0 % High 11.9-15.3 [facility] Comment on above: Performed By: #### E SR, CBC, CMP, BNP #### [facility] [address] [place] [address] Erythrocyte sedimentation ra te by Photometric methodOrdered By: Jenna Engle on 01-06-2024 ESR Photometric method (Bld) [Velocity] 34 mm/hr 0-29 [facility] Erythrocytes [#/volume] in B lood by Automated countOrdered By: Jenna Engle on 01-06-2024 RBC (Bld) [#/Vol] 4.54 10*6/uL Normal 3.60-5.00 [facility] Comment on above: Performed By: #### E SR, CBC, CMP, BNP #### [facility] [address] [place] [address] Glucose [Mass/volume] in Ser um or PlasmaOrdered By: Jenna Engle on 01-06-2024 Glucose [Mass/Vol] 85 mg/dL Normal 70-100 [facility] Comment on above: ADA recommended refe rence rangeRandom Glucose Reference Range is dependent on time and content of last meal. Glucose of more than 200 mg/dL in a nonstressed, ambulatory subject supports the diagnosis of Diabetes Mellitus. Result Comment: [place] Glucose Reference Range is dependent on time and content of last meal. Glucose of more than 200 mg/dL in a nonstressed, ambulatory subject supports the diagnosis of Diabetes Mellitus. ADA recommended reference range Performed By: #### E SR, CBC, CMP, BNP #### [facility] [address] [place] [address] Hematocrit [Volume Fraction] of Blood by Automated countOrdered By: Jenna Engle on 01-06-2024 Hematocrit (Bld) [Volume fraction] 35.7 % Normal 34.0-46.4 [facility] Comment on above: Performed By: #### E SR, CBC, CMP, BNP #### [address] Hemoglobin [Mass/volume] in BloodOrdered By: Jenna Engle on 01-06-2024 Hemoglobin (Bld) [Mass/Vol] 11.3 g/dL Low 11.8-15.4 [facility] Comment on above: Performed By: #### E SR, CBC, CMP, BNP #### [facility] [address] [place] [address] Leukocytes [#/volume] correc juma for nucleated erythrocytes in Blood by Automated counOrdered By: Jenna Engle on 01-06-2024 WBC corrected for nucl RBC Auto (Bld) [#/Vol] 14.2 10*3/uL 3.8-11.6 [facility] Leukocytes [#/volume] in Blo od by Automated countOrdered By: Jenna Engle on 01-06-2024 WBC (Bld) [#/Vol] 14.2 10*3/uL High 3.8-11.6 [facility] Comment on above: Performed By: #### E SR, CBC, CMP, BNP #### [place] [address] [place] Lymphocytes [#/volume] in Bl ood by Automated countOrdered By: Jenna Engle on 01-06-2024 Lymphocytes (Bld) [#/Vol] 4.3 10*3/uL Normal 1.00-4.8 [facility] Comment on above: Performed By: #### E SR, CBC, CMP, BNP #### [address] Lymphocytes/100 leukocytes i n Blood by Automated countOrdered By: Jenna Engle on 01-06-2024 Lymphocytes/100 WBC (Bld) 30.2 % Normal . [facility] Comment on above: Performed By: #### E SR, CBC, CMP, BNP #### [address] MCH [Entitic mass] by Automa juma countOrdered By: Jenna Engle on 01-06-2024 MCH (RBC) [Entitic mass] 24.9 pg Normal 24.7-34.3 [facility] Comment on above: Performed By: #### E SR, CBC, CMP, BNP #### [address] MCHC Auto (RBC) [Mass/Vol]Or dered By: Jenna Engle on 01-06-2024 MCHC (RBC) [Mass/Vol] 31.6 g/dL 32.0-35.0 [facility] MCV [Entitic volume] by Auto mated countOrdered By: Jenna Engle on 01-06-2024 MCV (RBC) [Entitic vol] 78.7 fL Low 80-100 [facility] Comment on above: Performed By: #### E SR, CBC, CMP, BNP #### [address] Neutrophils [#/volume] in Bl ood by Automated countOrdered By: Jenna Engle on 01-06-2024 Neutrophils (Bld) [#/Vol] 8.5 10*3/uL High 1.8-7.7 [facility] Comment on above: Performed By: #### E SR, CBC, CMP, BNP #### [address] No Panel InformationOrdered By: Jenna Engle on 01-06-2024 Estimated GFR (CKD-EPI) 47.277 mL/Min [facility] Creatinine Clearance (Chem N/A [facility] Nucleated erythrocytes [Pres ence] in Blood by Automated countOrdered By: Jenna Engle on 01-06-2024 Nucleated RBC Auto Ql (Bld) 0.0 /100{WBC} 0-0.5 [facility] Platelet mean volume [Entiti c volume] in Blood by Automated countOrdered By: Jenna Engle on 01-06-2024 Platelet mean volume (Bld) [Entitic vol] 7.2 fL Normal 6.3-10.7 [facility] Comment on above: Performed By: #### E SR, CBC, CMP, BNP #### [facility] [address] [place] [address] [place] Platelets [#/volume] in Bloo d by Automated countOrdered By: Jenna Engle on 01-06-2024 Platelets (Bld) [#/Vol] 330 10*3/uL Normal 150-450 [facility] Comment on above: Performed By: #### E SR, CBC, CMP, BNP #### [facility] [address] [place] [address] [place] Potassium [Moles/volume] in Serum or PlasmaOrdered By: Jenna Engle on 01-06-2024 Potassium [Moles/Vol] 4.5 mmol/L Normal 3.5-5.1 [facility] Comment on above: Performed By: #### E SR, CBC, CMP, BNP #### [facility] [address] [place] [address] [place] Protein [Mass/volume] in Ser um or PlasmaOrdered By: Jenna Engle on 01-06-2024 Protein [Mass/Vol] 7.1 g/dL Normal 6.4-8.9 [facility] Comment on above: Performed By: #### E SR, CBC, CMP, BNP #### [facility] [address] [place] [address] [place] Serum globulin measurement b y calculation (mass/volume)Ordered By: Jenna Engle on 01-06-2024 Globulin (S) [Mass/Vol] 3.2 g/dL [facility] Comment on above: Performed By: #### E SR, CBC, CMP, BNP #### [facility] [address] [place] [address] Serum or plasma albumin/glob ulin mass ratioOrdered By: Jenna Engle on 01-06-2024 Albumin/Globulin [Mass ratio] 1.2 {ratio} [facility] Comment on above: Performed By: #### E SR, CBC, CMP, BNP #### [facility] [address] [place] [address] Serum or plasma anion gap de terminationOrdered By: Jenna Engle on 01-06-2024 Anion gap [Moles/Vol] 8.8 mmol/L Normal 6.0-15.0 [facility] Comment on above: Performed By: #### E SR, CBC, CMP, BNP #### [facility] [address] [place] [address] Sodium [Moles/volume] in Ser um or PlasmaOrdered By: Jenna Engle on 01-06-2024 Sodium [Moles/Vol] 144 mmol/L Normal 136-145 [facility] Comment on above: Performed By: #### E SR, CBC, CMP, BNP #### [facility] [address] [place] [address] Urea nitrogen [Mass/volume] in Serum or PlasmaOrdered By: Jenna Engle on 01-06-2024 Urea nitrogen [Mass/Vol] 31 mg/dL High 7-25 [facility] Comment on above: Performed By: #### E SR, CBC, CMP, BNP #### [facility] [address] [place] [address] XR chest 2V*on 01-06-2024 XR chest 2V* [facility] [place] [address] [place] [address] XRay Report Signed Patient: Gera Perdue MR#: [id number] : 1945 Acct:[id number] Age/Sex: 78 / F ADM Date: 01/06/24 Loc: XD Room: Type: [facility] Attending Dr: Jenna Engle MD Copies [...] [place] Jr., D.O.01/06/2024 4:08 PM Dictation Location: [place] [address] Transcribed By: [facility] 01/06/24 1608 Dictated By: Rodriguez [place] Jr, DO 01/06/24 1608 Signed By: 01/06/24 1608 Normal [facility] BASIC METABOLIC PANLon 10-23 Anion gap [Moles/Vol] 9 mmol/L Normal 5-15 [facility] Comment on above: Performed By: #### C SANTOSH MILLIGAN, 74132-8, 2777-1 #### [facility] ([id number]) [address], [address] [place] [address] Calcium [Mass/Vol] 9.1 mg/dL Normal 8.5-10.5 [facility] Comment on above: Performed By: #### C SANTOSH MILLIGAN, 68074-8, 2777-1 #### [facility] ([id number]) [address], [address] [place] [address] Chloride [Moles/Vol] 102 mmol/L Normal 98-109 [facility] Comment on above: Performed By: #### C SANTOSH MILLIGAN, 70573-1, 2777-1 #### [facility] ([id number]) [address], [address] [place] [address] CO2 [Moles/Vol] 26 mmol/L Normal 22-32 [facility] Comment on above: Performed By: #### C SANTOSH MILLIGAN, , 2776-10 #### [facility] ([id number]) [address], [address] [place] [address] Creatinine [Mass/Vol] 1.08 mg/dL High 0.40-1.00 [facility] Comment on above: Result Comment: METH OD TRACEABLE TO IDMS STANDARD Performed By: #### C SANTOSH MILLIGAN, , 2776-10 #### [facility] ([id number]) [address], [address] [place] [address] GFR/1.73 sq M.predicted among non-blacks MDRD (S/P/Bld) [Vol rate/Area] 53 mL/min/{1.73_m2} Low >59 [facility] Comment on above: Result Comment: Reported eGFR is based on the CKD-EPI 2020 equation that does not use a race coefficient. Performed By: #### C SANTOSH MILLIGAN, , 2776-10 #### [facility] ([id number]) [address], [address] [place] [address] Glucose [Mass/Vol] 96 mg/dL Normal 65-99 [facility] Comment on above: Performed By: #### SANTOSH SALEEM, , 2776-10 #### [facility] ([id number]) [address] [place] [address] Potassium [Moles/Vol] 4.4 mmol/L Normal 3.5-5.0 [facility] Comment on above: Performed By: #### C SANTOSH MILLIGAN, , 2776-10 #### [facility] ([id number]) [address] [place] [address] Sodium [Moles/Vol] 137 mmol/L Normal 134-146 [facility] Comment on above: Performed By: #### C SANTOSH MILLIGAN, , 2776-10 #### [facility] ([id number]) [address] [place] [address] Urea nitrogen [Mass/Vol] 13 mg/dL Normal 5-27 [facility] Comment on above: Performed By: #### Timmy , [facility], , 2776-10 #### [facility] ([id number]) [address] [place] [address] COMPLETE BLOOD COUNTon 10-23 Erythrocyte distribution width (RBC) [Ratio] 21.6 % High 11.5-15.0 [facility] Comment on above: Performed By: #### Timmy MILLIGAN, [facility], , 2776-10 #### [facility] ([id number]) [address] [place] [address] Hematocrit (Bld) [Volume fraction] 25.8 % Low 35-47 [facility] Comment on above: Performed By: #### Timmy MILLIGAN, [facility], , 2776-10 #### [facility] ([id number]) [address], [address] [place] [address] Hemoglobin (Bld) [Mass/Vol] 8.5 g/dL Low 11.7-15.5 [facility] Comment on above: Performed By: #### Timmy MILLIGAN, [facility], , 2776-10 #### [facility] ([id number]) [address] [place] [address] MCH (RBC) [Entitic mass] 26.1 pg Low 27-34 [facility] Comment on above: Performed By: #### Timmy MILLIGAN, [facility], , 2776-10 #### [facility] ([id number]) [address] [place] [address] MCHC (RBC) [Mass/Vol] 32.9 g/dL Normal 32-36 [facility] Comment on above: Performed By: #### SANTOSH SALEEM, , 2776-10 #### [facility] ([id number]) [address] [place] [address] MCV (RBC) [Entitic vol] 79 fL Low 80-100 [facility] Comment on above: Performed By: #### SANTOSH SALEEM, , 2776-10 #### [facility] ([id number]) [address] [place] [address] Platelet mean volume (Bld) [Entitic vol] 6.7 fL Low 7-12 [facility] Comment on above: Performed By: #### Timmy MILLIGAN, SANTOSH, , 2776-10 #### [facility] ([id number]) [address] [place] [address] Platelets (Bld) [#/Vol] 551 10*3/uL High 150-450 [facility] Comment on above: Performed By: #### SANTOSH SALEEM, , 2776-10 #### [facility] ([id number]) [address] [place] [address] RBC COUNT 3.26 X10E12/L Low 3.80-5.20 [facility] Comment on above: Performed By: #### SANTOSH SALEEM, , 2776-10 #### [facility] ([id number]) [address] [place] [address] WBC (Bld) [#/Vol] 10.1 10*3/uL Normal 4.0-11.0 [facility] Comment on above: Performed By: #### SANTOSH SALEEM, , 2776-10 #### [facility] ([id number]) [address] [place] [address] Calcium.ionized (Bld) [Mass/ Vol]on 10-23-2023 IONIZED CALCIUM 4.9 mg/dL Normal 4.5-5.3 [facility] Comment on above: Performed By: #### SANTOSH SALEEM, , 2776-10 #### [facility] ([id number]) [address] [place] [address] MAGNESIUMon 10-23-2023 Magnesium [Mass/Vol] 1.7 mg/dL Low 1.8-2.6 [facility] Comment on above: Performed By: #### SANTOSH SALEEM, , 2776-10 #### [facility] ([id number]) [address] [place] [address] PHOSPHORUSon 10-23-2023 Phosphate [Mass/Vol] 5.1 mg/dL High 2.4-4.9 [facility] Comment on above: Performed By: #### SANTOSH SALEEM, , 2776-10 #### [facility] ([id number]) [address] [place] [address] Rheumatoid factor Nephelomet ry Qn (S)on 10-23-2023 RHEUMATOID FACTOR <10 Normal <20 [facility] Comment on above: Performed By: #### SANTOSH SALEEM, , 2776-10 #### [facility] ([id number]) [address] [place] [address] BASIC METABOLIC PANLon 10-22 Anion gap [Moles/Vol] 10 mmol/L Normal 5-15 [facility] Comment on above: Performed By: #### SANTOSH SALEEM, , 2776-10 #### [facility] ([id number]) [address], [address] [place] [address] Calcium [Mass/Vol] 8.8 mg/dL Normal 8.5-10.5 [facility] Comment on above: Performed By: #### C SRINI, SANTOSH, , 2776-10 #### [facility] ([id number]) [address] [place] [address] Chloride [Moles/Vol] 104 mmol/L Normal 98-109 [facility] Comment on above: Performed By: #### Timmy MILLIGAN, SANTOSH, , 2776-10 #### [facility] ([id number]) [address] [place] [address] CO2 [Moles/Vol] 25 mmol/L Normal 22-32 [facility] Comment on above: Performed By: #### SANTOSH SALEEM, , 2776-10 #### [facility] ([id number]) [address], [address] [place] [address] Creatinine [Mass/Vol] 1.02 mg/dL High 0.40-1.00 [facility] Comment on above: Result Comment: METH OD TRACEABLE TO IDMS STANDARD Performed By: #### SANTOSH SALEEM, , 2776-10 #### [facility] ([id number]) [address] [place] [address] GFR/1.73 sq M.predicted among non-blacks MDRD (S/P/Bld) [Vol rate/Area] 57 mL/min/{1.73_m2} Low >59 [facility] Comment on above: Result Comment: Reported eGFR is based on the CKD-EPI 1 equation that does not use a race coefficient. Performed By: #### C SRINI, SANTOSH, , 2776-10 #### [facility] ([id number]) [address] [place] [address] Glucose [Mass/Vol] 86 mg/dL Normal 65-99 [facility] Comment on above: Performed By: #### Timmy MILLIGAN, SANTOSH, , 2776-10 #### [facility] ([id number]) [address], [address] [place] [address] Potassium [Moles/Vol] 4.6 mmol/L Normal 3.5-5.0 [facility] Comment on above: Performed By: #### C SANTOSH MILLIGAN, , 2776-10 #### [facility] ([id number]) [address] [place] [address] Sodium [Moles/Vol] 139 mmol/L Normal 134-146 [facility] Comment on above: Performed By: #### Timmy MILLIGAN, BMP, , 2776-10 #### [facility] ([id number]) [address], [address] [place] [address] Urea nitrogen [Mass/Vol] 13 mg/dL Normal 5-27 [facility] Comment on above: Performed By: #### Timmy MILLIGAN, SANTOHS, , 2776-10 #### [facility] ([id number]) [address], [address] [place] [address] COMPLETE BLOOD COUNTon 10-22 Erythrocyte distribution width (RBC) [Ratio] 22.2 % High 11.5-15.0 [facility] Comment on above: Performed By: #### SANTOSH SALEEM, , 2776-10 #### [facility] ([id number]) [address] [place] [address] Hematocrit (Bld) [Volume fraction] 25.7 % Low 35-47 [facility] Comment on above: Performed By: #### Timmy MILLIGAN, BMP, , 2776-10 #### [facility] ([id number]) [address], [address] [place] [address] Hemoglobin (Bld) [Mass/Vol] 8.2 g/dL Low 11.7-15.5 [facility] Comment on above: Performed By: #### SANTOSH SALEEM, , 2776-10 #### [facility] ([id number]) [address], [address] [place] [address] MCH (RBC) [Entitic mass] 26.2 pg Low 27-34 [facility] Comment on above: Performed By: #### C SRINI, SANTOSH, , 2776-10 #### [facility] ([id number]) [address] [place] [address] MCHC (RBC) [Mass/Vol] 32.1 g/dL Normal 32-36 [facility] Comment on above: Performed By: #### Timmy MILLIGAN, SANTOSH, , 2776-10 #### [facility] ([id number]) [address] [place] [address] MCV (RBC) [Entitic vol] 82 fL Normal 80-100 [facility] Comment on above: Performed By: #### SANTOSH SALEEM, , 2776-10 #### [facility] ([id number]) [address] [place] [address] Platelet mean volume (Bld) [Entitic vol] 6.7 fL Low 7-12 [facility] Comment on above: Performed By: #### SANTOSH SALEEM, , 2776-10 #### [facility] ([id number]) [address] [place] [address] Platelets (Bld) [#/Vol] 533 10*3/uL High 150-450 [facility] Comment on above: Performed By: #### Timmy MILLIGAN, SANTOSH, , 2776-10 #### [facility] ([id number]) [address] [place] [address] RBC COUNT 3.14 X10E12/L Low 3.80-5.20 [facility] Comment on above: Performed By: #### SANTOSH SALEEM, , 2776-10 #### [facility] ([id number]) [address] [place] [address] WBC (Bld) [#/Vol] 9.7 10*3/uL Normal 4.0-11.0 [facility] Comment on above: Performed By: #### SANTOSH SALEEM, , 2776-10 #### [facility] ([id number]) [address], [address] [place] [address] Calcium.ionized (Bld) [Mass/ Vol]on 10-22-2023 IONIZED CALCIUM 4.9 mg/dL Normal 4.5-5.3 [facility] Comment on above: Performed By: #### SANTOSH SALEEM, , 2776-10 #### [facility] ([id number]) [address] [place] [address] Glucose Glucometer (BldC) [M ass/Vol]on 10-22-2023 Glucose [Mass/Vol] 97 mg/dL Normal 65-99 [facility] MAGNESIUMon 10-22-2023 Magnesium [Mass/Vol] 2.1 mg/dL Normal 1.8-2.6 [facility] Comment on above: Performed By: #### SANTOSH SALEEM, , 2776-10 #### [facility] ([id number]) [address] [place] [address] PHOSPHORUSon 10-22-2023 Phosphate [Mass/Vol] 4.9 mg/dL Normal 2.4-4.9 [facility] Comment on above: Performed By: #### SANTOSH SALEEM, , 2776-10 #### [facility] ([id number]) [address] [place] [address] BASIC METABOLIC PANLon 10-21 Anion gap [Moles/Vol] 7 mmol/L Normal 5-15 [facility] Comment on above: Performed By: #### C SRINI, SANTOSH, , 2776-10 ####[facility] ([id number])[address] [address] [address] Calcium [Mass/Vol] 9.0 mg/dL Normal 8.5-10.5 [facility] Comment on above: Performed By: #### SANTOSH SALEEM, , 2776-10 ####[facility] ([id number])[address] [address] [address] Chloride [Moles/Vol] 104 mmol/L Normal 98-109 [facility] Comment on above: Performed By: #### SANTOSH SALEEM, , 2776-10 ####[facility] ([id number])[address] [address] CO2 [Moles/Vol] 26 mmol/L Normal 22-32 [facility] Comment on above: Performed By: #### SANTOSH SALEEM, , 2776-10 ####[facility] ([id number])[address] [address] Creatinine [Mass/Vol] 1.06 mg/dL High 0.40-1.00 [facility] Comment on above: Result Comment: METH OD TRACEABLE TO IDMS STANDARD Performed By: #### Timmy MILLIGAN, SANTOSH, , 2776-10 ####[facility] ([id number])[address] [address] [address] GFR/1.73 sq M.predicted among non-blacks MDRD (S/P/Bld) [Vol rate/Area] 54 mL/min/{1.73_m2} Low >59 [facility] Comment on above: Result Comment: Reported eGFR is based on the CKD-EPI 2020 equation that does not use a race coefficient. Performed By: #### C SRINI, BMP, , 2776-10 ####[facility] ([id number])[address], [place] [address] Glucose [Mass/Vol] 88 mg/dL Normal 65-99 [facility] Comment on above: Performed By: #### C SRINI, [facility], , 2776-10 ####[facility] ([id number])[address] [address] Potassium [Moles/Vol] 4.5 mmol/L Normal 3.5-5.0 [facility] Comment on above: Performed By: #### C SRINI, [facility], , 2776-10 ####[facility] ([id number])[address], [place] [address] Sodium [Moles/Vol] 137 mmol/L Normal 134-146 [facility] Comment on above: Performed By: #### C SRINI, [facility], , 2776-10 ####[facility] ([id number])[address], [address] [place] [address] Urea nitrogen [Mass/Vol] 12 mg/dL Normal 5-27 [facility] Comment on above: Performed By: #### C SRINI, BMP, , 2776-10 ####[facility] ([id number])[address] [address] [place] [address] COMPLETE BLOOD COUNTon 10-21 Erythrocyte distribution width (RBC) [Ratio] 22.0 % High 11.5-15.0 [facility] Comment on above: Performed By: #### C BC, BMP, , 2776-10 ####[facility] ([id number])[address] [address] [place] [address] Hematocrit (Bld) [Volume fraction] 26.3 % Low 35-47 [facility] Comment on above: Performed By: #### C SRINI, [facility], , 2776-10 ####[facility] ([id number])[address] [address] Hemoglobin (Bld) [Mass/Vol] 8.5 g/dL Low 11.7-15.5 [facility] Comment on above: Performed By: #### Timmy MILLIGAN, [facility], , 2776-10 ####[facility] ([id number])[address] [place] [address] MCH (RBC) [Entitic mass] 26.2 pg Low 27-34 [facility] Comment on above: Performed By: #### Timmy MILLIGAN, [facility], , 2776-10 ####[facility] ([id number])[address] [place] [address] MCHC (RBC) [Mass/Vol] 32.4 g/dL Normal 32-36 [facility] Comment on above: Performed By: #### Timmy MILLIGAN, [facility], , 2776-10 ####[facility] ([id number])[address] [place] [address] MCV (RBC) [Entitic vol] 81 fL Normal 80-100 [facility] Comment on above: Performed By: #### Timmy MILLIGAN, [facility], , 2776-10 ####[facility] ([id number])[address] [address] [place] [address] Platelet mean volume (Bld) [Entitic vol] 6.8 fL Low 7-12 [facility] Comment on above: Performed By: #### Timmy MILLIGAN, BMP, , 2776-10 ####[facility] ([id number])[address] [place] [address] Platelets (Bld) [#/Vol] 611 10*3/uL High 150-450 [facility] Comment on above: Performed By: #### C , [facility], , 2776-10 ####[facility] ([id number])[address] [address] [place] [address] RBC COUNT 3.25 X10E12/L Low 3.80-5.20 [facility] Comment on above: Performed By: #### C , [facility], , 2776-10 ####[facility] ([id number])[address] [address] WBC (Bld) [#/Vol] 10.0 10*3/uL Normal 4.0-11.0 [facility] Comment on above: Performed By: #### C SRINI, [facility], , 2776-10 ####[facility] ([id number])[address], [address] [place] [address] CRP [Mass/Vol]on 10-21-2023 C REACTIVE PROTEIN 6.5 mg/dL High 0.000-0.7 4 4 [facility] Comment on above: Performed By: #### 3 8230-9 #### [facility] ([id number]) [address] [place] [address] Calcium.ionized (Bld) [Mass/ Vol]on 10-21-2023 IONIZED CALCIUM 4.9 mg/dL Normal 4.5-5.3 [facility] Comment on above: Performed By: #### 3 8230-9 #### [facility] ([id number]) [address], [facility] [address] [place] [address] ESR Photometric method (Bld) [Velocity]on 10-21-2023 ESR, ERYTHROCYTE SEDIMENTATION RATE 74 mm/h High 0-30 [facility] Comment on above: Performed By: #### 3 8230-9 #### [facility] ([id number]) [address], [address] [place] [address] Glucose Glucometer (BldC) [M ass/Vol]on 10-21-2023 Glucose [Mass/Vol] 124 mg/dL High 65-99 [facility] Glucose [Mass/Vol] 135 mg/dL High 65-99 [facility] Glucose [Mass/Vol] 126 mg/dL High 65-99 [facility] Glucose [Mass/Vol] 91 mg/dL Normal 65-99 [facility] MAGNESIUMon 10-21-2023 Magnesium [Mass/Vol] 2.6 mg/dL Normal 1.8-2.6 [facility] Comment on above: Performed By: #### 3 8230-9 #### [facility] ([id number]) [address], [address] [place] [address] Magnesium [Mass/Vol] 1.9 mg/dL Normal 1.8-2.6 [facility] Comment on above: Performed By: #### C BC, BMP, 36357-5, 2777-1 ####[facility] ([id number])[address], [address] [place] [address] PHOSPHORUSon 10-21-2023 Phosphate [Mass/Vol] 4.3 mg/dL Normal 2.4-4.9 [facility] Comment on above: Performed By: #### 3 8230-9 #### [facility] ([id number]) [address], [address] [place] [address] XR WRIST LT MIN 3 VWSon 09-28 [...] Morin MD on 10/21/2023 10:28 AM Normal [facility] BASIC METABOLIC PANLon 10-20 Anion gap [Moles/Vol] 7 mmol/L Normal 5-15 [facility] Comment on above: Performed By: #### C SRINI, SANTOSH, , 2776-10 ####[facility] ([id number])[address], [place] [address] Calcium [Mass/Vol] 8.6 mg/dL Normal 8.5-10.5 [facility] Comment on above: Performed By: #### C SRINI, SANTOSH, , 2776-10 ####[facility] ([id number])[address], [place] [address] Chloride [Moles/Vol] 107 mmol/L Normal 98-109 [facility] Comment on above: Performed By: #### Timmy MILLIGAN, SANTOSH, , 2776-10 ####[facility] ([id number])[address] [address] CO2 [Moles/Vol] 25 mmol/L Normal 22-32 [facility] Comment on above: Performed By: #### Timmy MILLIGAN, SANTOSH, , 2776-10 ####[facility] ([id number])[address] [address] Creatinine [Mass/Vol] 1.16 mg/dL High 0.40-1.00 [facility] Comment on above: Result Comment: METH OD TRACEABLE TO IDMS STANDARD Performed By: #### Timmy MILLIGAN, SANTOSH, , 2776-10 ####[facility] ([id number])[address] [address] GFR/1.73 sq M.predicted among non-blacks MDRD (S/P/Bld) [Vol rate/Area] 49 mL/min/{1.73_m2} Low >59 [facility] Comment on above: Result Comment: Reported eGFR is based on the CKD-EPI 2020 equation that does not use a race coefficient. Performed By: #### C SRINI [facility], , 2776-10 ####[facility] ([id number])[address] [address], [place] [address] Glucose [Mass/Vol] 80 mg/dL Normal 65-99 [facility] Comment on above: Performed By: #### C SRINI [facility], , 2776-10 ####[facility] ([id number])[address] [address] [place] [address] Potassium [Moles/Vol] 4.6 mmol/L Normal 3.5-5.0 [facility] Comment on above: Performed By: #### C SRINI [facility], , 2776-10 ####[facility] ([id number])[address] [address], [place] [address] Sodium [Moles/Vol] 139 mmol/L Normal 134-146 [facility] Comment on above: Performed By: #### Timmy MILLIGAN [facility], , 2776-10 ####[facility] ([id number])[address] [address] [place] [address] Urea nitrogen [Mass/Vol] 12 mg/dL Normal 5-27 [facility] Comment on above: Performed By: #### C SRINI [facility], , 2776-10 ####[facility] ([id number])[address] [address] [address] COMPLETE BLOOD COUNTon 10-20 Erythrocyte distribution width (RBC) [Ratio] 22.5 % High 11.5-15.0 [facility] Comment on above: Performed By: #### Timmy MILLIGAN [facility], , 2776-10 ####[facility] ([id number])[address] [address], [place] [address] Hematocrit (Bld) [Volume fraction] 24.8 % Low 35-47 [facility] Comment on above: Performed By: #### C SRINI, [facility], , 2776-10 ####[facility] ([id number])[address], [place] [address] Hemoglobin (Bld) [Mass/Vol] 8.1 g/dL Low 11.7-15.5 [facility] Comment on above: Performed By: #### C SRINI, [facility], , 2776-10 ####[facility] ([id number])[address], [place] [address] MCH (RBC) [Entitic mass] 26.2 pg Low 27-34 [facility] Comment on above: Performed By: #### Timmy MILLIGAN, [facility], , 2776-10 ####[facility] ([id number])[address], [place] [address] MCHC (RBC) [Mass/Vol] 32.4 g/dL Normal 32-36 [facility] Comment on above: Performed By: #### Timmy MILLIGAN, [facility], , 2776-10 ####[facility] ([id number])[address] [place] [address], [place] [address] MCV (RBC) [Entitic vol] 81 fL Normal 80-100 [facility] Comment on above: Performed By: #### Timmy MILLIGAN, BMP, , 2776-10 ####[facility] ([id number])[address] [place] [address] Platelet mean volume (Bld) [Entitic vol] 6.7 fL Low 7-12 [facility] Comment on above: Performed By: #### Timmy MILLIGAN, BMP, , 2776-10 ####[facility] ([id number])[address] [place] [address] Platelets (Bld) [#/Vol] 554 10*3/uL High 150-450 [facility] Comment on above: Performed By: #### C SRINI, SANTOSH, , 2776-10 ####[facility] ([id number])[address] [address] RBC COUNT 3.08 X10E12/L Low 3.80-5.20 [facility] Comment on above: Performed By: #### SANTOSH SALEEM, , 2776-10 ####[facility] ([id number])[address] [address] WBC (Bld) [#/Vol] 9.3 10*3/uL Normal 4.0-11.0 [facility] Comment on above: Performed By: #### SANTOSH SALEEM, , 2776-10 ####[facility] ([id number])[address] [address] Glucose Glucometer ([facility]) [M ass/Vol]on 10-20-2023 Glucose [Mass/Vol] 108 mg/dL High 65-99 [facility] Glucose [Mass/Vol] 115 mg/dL High 65-99 [facility] Glucose [Mass/Vol] 140 mg/dL High 65-99 [facility] Glucose [Mass/Vol] 94 mg/dL Normal 65-99 [facility] MAGNESIUMon 10-20-2023 Magnesium [Mass/Vol] 1.7 mg/dL Low 1.8-2.6 [facility] Comment on above: Performed By: #### Timmy MILLIGAN, SANTOSH, , 2776-10 ####[facility] ([id number])[address] [address] PHOSPHORUSon 10-20-2023 Phosphate [Mass/Vol] 4.2 mg/dL Normal 2.4-4.9 [facility] Comment on above: Performed By: #### C SRINI, BMP, , 2776-10 ####[facility] ([id number])[address], [place] [address] BASIC METABOLIC PANLon 10-19 Anion gap [Moles/Vol] 8 mmol/L Normal 5-15 [facility] Comment on above: Performed By: #### C SRINI, BMP, , 2776-10 ####[facility] ([id number])[address], [place] [address] Calcium [Mass/Vol] 8.3 mg/dL Low 8.5-10.5 [facility] Comment on above: Performed By: #### Timmy MILLIGAN, BMP, , 2776-10 ####[facility] ([id number])[address], [place] [address] Chloride [Moles/Vol] 107 mmol/L Normal 98-109 [facility] Comment on above: Performed By: #### Timmy MILLIGAN, BMP, , 2776-10 ####[facility] ([id number])[address], [place] [address] CO2 [Moles/Vol] 24 mmol/L Normal 22-32 [facility] Comment on above: Performed By: #### Timmy BC, BMP, , 2776-10 ####[facility] ([id number])[address], [place] [address] Creatinine [Mass/Vol] 1.05 mg/dL High 0.40-1.00 [facility] Comment on above: Result Comment: METH OD TRACEABLE TO IDMS STANDARD Performed By: #### C BC, BMP, , 2776-10 ####[facility] ([id number])[address] [address] GFR/1.73 sq M.predicted among non-blacks MDRD (S/P/Bld) [Vol rate/Area] 55 mL/min/{1.73_m2} Low >59 [facility] Comment on above: Result Comment: Reported eGFR is based on the CKD-EPI 2020 equation that does not use a race coefficient. Performed By: #### C SANTOSH MILLIGAN, , 2776-10 ####[facility] ([id number])[address] [address] [address] Glucose [Mass/Vol] 82 mg/dL Normal 65-99 [facility] Comment on above: Performed By: #### SANTOSH SALEEM, , 2776-10 ####[facility] ([id number])[address] [address] Potassium [Moles/Vol] 4.3 mmol/L Normal 3.5-5.0 [facility] Comment on above: Performed By: #### SANTOSH SALEEM, , 2776-10 ####[facility] ([id number])[address] [address] Sodium [Moles/Vol] 139 mmol/L Normal 134-146 [facility] Comment on above: Performed By: #### SANTOSH SALEEM, , 2776-10 ####[facility] ([id number])[address] [address] Urea nitrogen [Mass/Vol] 10 mg/dL Normal 5-27 [facility] Comment on above: Performed By: #### SANTOSH SALEEM, , 2776-10 ####[facility] ([id number])[address] [address] COMPLETE BLOOD COUNTon 10-19 Erythrocyte distribution width (RBC) [Ratio] 22.7 % High 11.5-15.0 [facility] Comment on above: Performed By: #### C , [facility], , 2776-10 ####[facility] ([id number])[address], [place] [address] Hematocrit (Bld) [Volume fraction] 24.4 % Low 35-47 [facility] Comment on above: Performed By: #### Timmy MILLIGAN, [facility], , 2776-10 ####[facility] ([id number])[address] [place] [address] Hemoglobin (Bld) [Mass/Vol] 7.8 g/dL Low 11.7-15.5 [facility] Comment on above: Performed By: #### Timmy MILLIGAN [facility], , 2776-10 ####[facility] ([id number])[address] [place] [address] MCH (RBC) [Entitic mass] 25.9 pg Low 27-34 [facility] Comment on above: Performed By: #### Timmy MILLIGAN, [facility], , 2776-10 ####[facility] ([id number])[address] [place] [address] MCHC (RBC) [Mass/Vol] 31.8 g/dL Low 32-36 [facility] Comment on above: Performed By: #### C SRINI [facility], , 2776-10 ####[facility] ([id number])[address] [address] MCV (RBC) [Entitic vol] 82 fL Normal 80-100 [facility] Comment on above: Performed By: #### Timmy MILLIGAN, [facility], , 2776-10 ####[facility] ([id number])[address], [address] [address] Platelet mean volume (Bld) [Entitic vol] 6.6 fL Low 7-12 [facility] Comment on above: Performed By: #### C SRINI, [facility], , 2776-10 ####[facility] ([id number])[address], [address] [place] [address] Platelets (Bld) [#/Vol] 533 10*3/uL High 150-450 [facility] Comment on above: Performed By: #### C SRINI, [facility], , 2776-10 ####[facility] ([id number])[address], [address] [place] [address] RBC COUNT 2.99 X10E12/L Low 3.80-5.20 [facility] Comment on above: Performed By: #### Timmy MILLIGAN, [facility], , 2776-10 ####[facility] ([id number])[address] [address] [place] [address] WBC (Bld) [#/Vol] 9.9 10*3/uL Normal 4.0-11.0 [facility] Comment on above: Performed By: #### C SRINI, [facility], , 2776-10 ####[facility] ([id number])[address] [address] [place] [address] Calcium.ionized (Bld) [Mass/ Vol]on 10-19-2023 IONIZED CALCIUM 4.9 mg/dL Normal 4.5-5.3 [facility] Comment on above: Performed By: #### 3 8230-9 ####[facility] ([id number])[address] [address] [place] [address] Glucose Glucometer (BldC) [M ass/Vol]on 10-19-2023 Glucose [Mass/Vol] 102 mg/dL High 65-99 [facility] Glucose [Mass/Vol] 117 mg/dL High 65-99 [facility] Glucose [Mass/Vol] 103 mg/dL High 65-99 [facility] MAGNESIUMon 10-19-2023 Magnesium [Mass/Vol] 2.0 mg/dL Normal 1.8-2.6 [facility] Comment on above: Performed By: #### C SRINI, SANT[place]H, , 2776-10 ####[facility] ([id number])[address], [place] [address] PHOSPHORUSon 10-19-2023 Phosphate [Mass/Vol] 4.3 mg/dL Normal 2.4-4.9 [facility] Comment on above: Performed By: #### Timmy MILLIGAN, [place], , 2776-10 ####[facility] ([id number])[address], [place] [address] BASIC METABOLIC PANLon 10-18 Anion gap [Moles/Vol] 10 mmol/L Normal 5-15 [facility] Comment on above: Performed By: #### Timmy MILLIGAN, SANTOSH, , 2776-10, 308-1 ####[facility] ([id number])[address], [place] [address] Calcium [Mass/Vol] 8.5 mg/dL Normal 8.5-10.5 [facility] Comment on above: Performed By: #### Timmy MILLIGAN, SANTOSH, , 2776-10, 308-1 ####[facility] ([id number])[address], [place] [address] Chloride [Moles/Vol] 107 mmol/L Normal 98-109 [facility] Comment on above: Performed By: #### Timmy MILLIGAN, SANTOSH, , 2776-10, 308-1 ####[facility] ([id number])[address], [address], [place] [address] CO2 [Moles/Vol] 23 mmol/L Normal 22-32 [facility] Comment on above: Performed By: #### C SRINI, BMP, , 2776-10, 3083-10 ####[facility] ([id number])[address], [address] [address] Creatinine [Mass/Vol] 1.17 mg/dL High 0.40-1.00 [facility] Comment on above: Result Comment: METH OD TRACEABLE TO IDMS STANDARD Performed By: #### C SRINI, BMP, , 2776-10, 3083-10 ####[facility] ([id number])[address] [address] [place] [address] GFR/1.73 sq M.predicted among non-blacks MDRD (S/P/Bld) [Vol rate/Area] 48 mL/min/{1.73_m2} Low >59 [facility] Comment on above: Result Comment: Reported eGFR is based on the CKD-EPI 2020 equation that does not use a race coefficient. Performed By: #### C SRINI, SANTOSH, , 2776-10, 3083- ####[facility] ([id number])[address] [address] [address] Glucose [Mass/Vol] 82 mg/dL Normal 65-99 [facility] Comment on above: Performed By: #### Timmy MILLIGAN, SANTOSH, , 2776-10, 3083-10 ####[facility] ([id number])[address] [address] [place] [address] Potassium [Moles/Vol] 4.0 mmol/L Normal 3.5-5.0 [facility] Comment on above: Performed By: #### C SRINI, BMP, , 2776-10, 3083- ####[facility] ([id number])[address], [address] [place] [address] Sodium [Moles/Vol] 140 mmol/L Normal 134-146 [facility] Comment on above: Performed By: #### C BC, BMP, , 2776-10, 3083-10 ####[facility] ([id number])[address], [address] [place] [address] Urea nitrogen [Mass/Vol] 11 mg/dL Normal 5-27 [facility] Comment on above: Performed By: #### C BC, BMP, , 2776-10, 3083-10 ####[facility] ([id number])[address], [address] [place] [address] COMPLETE BLOOD COUNTon 10-18 Erythrocyte distribution width (RBC) [Ratio] 21.2 % High 11.5-15.0 [facility] Comment on above: Performed By: #### C BC, BMP, , 2776-10, 3083-10 ####[facility] ([id number])[address], [address] [place] [address] Hematocrit (Bld) [Volume fraction] 24.6 % Low 35-47 [facility] Comment on above: Performed By: #### C BC, BMP, , 2776-10, 3083-10 ####[facility] ([id number])[address] [address] [place] [address] Hemoglobin (Bld) [Mass/Vol] 7.9 g/dL Low 11.7-15.5 [facility] Comment on above: Performed By: #### C BC, BMP, , 2776-10, 3083-10 ####[facility] ([id number])[address] [address] [place] [address] MCH (RBC) [Entitic mass] 26.2 pg Low 27-34 [facility] Comment on above: Performed By: #### C BC, BMP, , 2776-10, 3083-10 ####[facility] ([id number])[address], [address], [place] [address] MCHC (RBC) [Mass/Vol] 32.2 g/dL Normal 32-36 [facility] Comment on above: Performed By: #### Timmy MILLIGAN, BMP, , 2776-10, 3083-10 ####[facility] ([id number])[address], [address], [place] [address] MCV (RBC) [Entitic vol] 81 fL Normal 80-100 [facility] Comment on above: Performed By: #### Timmy MILLIGAN, SANTOSH, , 2776-10, 3083-10 ####[facility] ([id number])[address], [address], [place] [address] Platelet mean volume (Bld) [Entitic vol] 6.5 fL Low 7-12 [facility] Comment on above: Performed By: #### Timmy MILLIGAN, SANTOSH, , 2776-10, 3083-10 ####[facility] ([id number])[address], [address] [address] Platelets (Bld) [#/Vol] 522 10*3/uL High 150-450 [facility] Comment on above: Performed By: #### Timmy MILLIGAN, SANTOSH, , 2776-10, 3083-10 ####[facility] ([id number])[address], [address], [place] [address] RBC COUNT 3.03 X10E12/L Low 3.80-5.20 [facility] Comment on above: Performed By: #### Timmy MILLIGAN, BMP, , 2776-10, 3083-10 ####[facility] ([id number])[address], [address] [place] [address] WBC (Bld) [#/Vol] 9.3 10*3/uL Normal 4.0-11.0 [facility] Comment on above: Performed By: #### C SRINI, BMP, 44229-5, 2777-1, 3084-1 ####[facility] ([id number])[address], [address] [place] [address] Calcium.ionized (Bld) [Mass/ Vol]on 10-18-2023 IONIZED CALCIUM 4.9 mg/dL Normal 4.5-5.3 [facility] Comment on above: Performed By: #### 3 8230-9 ####[facility] ([id number])[address], [address] [place] [address] Glucose Glucometer (BldC) [M ass/Vol]on 10-18-2023 Glucose [Mass/Vol] 108 mg/dL High 65-99 [facility] Glucose [Mass/Vol] 134 mg/dL High 65-99 [facility] Glucose [Mass/Vol] 127 mg/dL High 65-99 [facility] Glucose [Mass/Vol] 102 mg/dL High 65-99 [facility] MAGNESIUMon 10-18-2023 Magnesium [Mass/Vol] 1.7 mg/dL Low 1.8-2.6 [facility] Comment on above: Performed By: #### C SRINI, BMP, 11382-8, 2777-1, 3084-1 ####[facility] ([id number])[address], [address] [place] [address] MR CERVICAL SPINE WO CONTon 10-18-2023 MR [...] William MD on 10/18/2023 2:39 AM Normal [facility] MR LUMBAR SPINE WO CONTon MR [...] William MD on 10/18/2023 3:37 AM Normal [facility] MR THORACIC SPINE WO CONTon 10-18-2023 [...] William MD on 10/18/2023 3:25 AM Normal [facility] PHOSPHORUSon 10-18-2023 Phosphate [Mass/Vol] 4.1 mg/dL Normal 2.4-4.9 [facility] Comment on above: Performed By: #### C , [facility], [address]-8, 2777-1, 3084-1 ####[facility] ([id number])[address] [facility], [address] [place] [address] URIC ACIDon 10-18-2023 Urate [Mass/Vol] 4.7 mg/dL Normal 2.6-7.2 [facility] Comment on above: Performed By: #### C BC, BMP, 75502-8, 2777-1, 3084-1 ####[facility] ([id number])[address], [address] [address] XR WRIST RT 2 VWSon 10-18-20 23 [...] Rod MD on 10/18/2023 2:24 PM Normal [facility] BASIC METABOLIC PANLon 10-17 Anion gap [Moles/Vol] 8 mmol/L Normal 5-15 [facility] Comment on above: Performed By: #### 1 7928-3 #### [facility] ([id number]) [address], [address] [place] [address] Calcium [Mass/Vol] 8.5 mg/dL Normal 8.5-10.5 [facility] Comment on above: Performed By: #### 1 7928-3 #### [facility] ([id number]) [address], [address] [place] [address] Chloride [Moles/Vol] 105 mmol/L Normal 98-109 [facility] Comment on above: Performed By: #### 1 7928-3 #### [facility] ([id number]) [address], [address] [place] [address] CO2 [Moles/Vol] 24 mmol/L Normal 22-32 [facility] Comment on above: Performed By: #### 1 7928-3 #### [facility] ([id number]) [address] [address] [place] [address] Creatinine [Mass/Vol] 1.03 mg/dL High 0.40-1.00 [facility] Comment on above: Result Comment: METH OD TRACEABLE TO IDMS STANDARD Performed By: #### 1 7928-3 #### [facility] ([id number]) [address] [address] GFR/1.73 sq M.predicted among non-blacks MDRD (S/P/Bld) [Vol rate/Area] 56 mL/min/{1.73_m2} Low >59 [facility] Comment on above: Result Comment: Reported eGFR is based on the CKD-EPI 2020 equation that does not use a race coefficient. Performed By: #### 1 7928-3 #### [facility] ([id number]) [address] [address] Glucose [Mass/Vol] 88 mg/dL Normal 65-99 [facility] Comment on above: Performed By: #### 1 7928-3 #### [facility] ([id number]) [address] [address] Potassium [Moles/Vol] 4.2 mmol/L Normal 3.5-5.0 [facility] Comment on above: Performed By: #### 1 7928-3 #### [facility] ([id number]) [address] [place] [address] Sodium [Moles/Vol] 137 mmol/L Normal 134-146 [facility] Comment on above: Performed By: #### 1 7928-3 #### [facility] ([id number]) [address] [place] [address] Urea nitrogen [Mass/Vol] 13 mg/dL Normal 5-27 [facility] Comment on above: Performed By: #### 1 7928-3 #### [facility] ([id number]) [address] [address] [place] [address] COMPLETE BLOOD COUNTon 10-17 Erythrocyte distribution width (RBC) [Ratio] 21.4 % High 11.5-15.0 [facility] Comment on above: Performed By: #### 1 7928-3 #### [facility] ([id number]) [address], [address] [place] [address] Hematocrit (Bld) [Volume fraction] 25.0 % Low 35-47 [facility] Comment on above: Performed By: #### 1 7928-3 #### [facility] ([id number]) [address], [address] [place] [address] Hemoglobin (Bld) [Mass/Vol] 7.9 g/dL Low 11.7-15.5 [facility] Comment on above: Performed By: #### 1 7928-3 #### [facility] ([id number]) [address], [address] [place] [address] MCH (RBC) [Entitic mass] 25.4 pg Low 27-34 [facility] Comment on above: Performed By: #### 1 7928-3 #### [facility] ([id number]) [address], [address] [place] [address] MCHC (RBC) [Mass/Vol] 31.4 g/dL Low 32-36 [facility] Comment on above: Performed By: #### 1 7928-3 #### [facility] ([id number]) [address], [address] [place] [address] MCV (RBC) [Entitic vol] 81 fL Normal 80-100 [facility] Comment on above: Performed By: #### 1 7928-3 #### [facility] ([id number]) [address], [address] [place] [address] Platelet mean volume (Bld) [Entitic vol] 6.6 fL Low 7-12 [facility] Comment on above: Performed By: #### 1 7928-3 #### [facility] ([id number]) [address], [address] [place] [address] Platelets (Bld) [#/Vol] 519 10*3/uL High 150-450 [facility] Comment on above: Performed By: #### 1 7928-3 #### [facility] ([id number]) [address], [address] [place] [address] RBC COUNT 3.09 X10E12/L Low 3.80-5.20 [facility] Comment on above: Performed By: #### 1 7928-3 #### [facility] ([id number]) [address], [address] [place] [address] WBC (Bld) [#/Vol] 10.7 10*3/uL Normal 4.0-11.0 [facility] Comment on above: Performed By: #### 1 7928-3 #### [facility] ([id number]) [address], [address] [place] [address] Calcium.ionized (Bld) [Mass/ Vol]on 10-17-2023 IONIZED CALCIUM 4.8 mg/dL Normal 4.5-5.3 [facility] Comment on above: Performed By: #### 1 7928-3 #### [facility] ([id number]) [address], [address] [place] [address] Glucose Glucometer (BldC) [M ass/Vol]on 10-17-2023 Glucose [Mass/Vol] 106 mg/dL High 65-99 [facility] Glucose [Mass/Vol] 96 mg/dL Normal 65-99 [facility] Glucose [Mass/Vol] 123 mg/dL High 65-99 [facility] Glucose [Mass/Vol] 88 mg/dL Normal 65-99 [facility] MAGNESIUMon 12-21-2023 Magnesium [Mass/Vol] 2.1 mg/dL Normal 1.8-2.6 [facility] Comment on above: Performed By: #### 1 7928-3 #### [facility] ([id number]) [address] [place] [address] PHOSPHORUSon 10-17-2023 Phosphate [Mass/Vol] 3.8 mg/dL Normal 2.4-4.9 [facility] Comment on above: Result Comment: SPEC IMEN HEMOLYZED, RESULTS INCREASED SLIGHTLY HEMOLYZED Performed By: #### 1 7928-3 #### [facility] ([id number]) [address], [address] [place] [address] BASIC METABOLIC PANLon 10-16 Anion gap [Moles/Vol] 10 mmol/L Normal 5-15 [facility] Comment on above: Performed By: #### E LEC #### [facility] ([id number]) [address] [place] [address] Calcium [Mass/Vol] 9.0 mg/dL Normal 8.5-10.5 [facility] Comment on above: Performed By: #### E LEC #### [facility] ([id number]) [address], [address] [place] [address] Chloride [Moles/Vol] 106 mmol/L Normal 98-109 [facility] Comment on above: Performed By: #### E LEC #### [facility] ([id number]) [address], [address] [place] [address] CO2 [Moles/Vol] 22 mmol/L Normal 22-32 [facility] Comment on above: Performed By: #### E LEC #### [facility] ([id number]) [address], [address] [place] [address] Creatinine [Mass/Vol] 1.03 mg/dL High 0.40-1.00 [facility] Comment on above: Result Comment: METH OD TRACEABLE TO IDMS STANDARD Performed By: #### E LEC #### [facility] ([id number]) [facility] [address] [place] [address] GFR/1.73 sq M.predicted among non-blacks MDRD (S/P/Bld) [Vol rate/Area] 56 mL/min/{1.73_m2} Low >59 [facility] Comment on above: Result Comment: Reported eGFR is based on the CKD-EPI 2020 equation that does not use a race coefficient. Performed By: #### E LEC #### [facility] ([id number]) [facility], [facility] [address] [place] [address] Glucose [Mass/Vol] 87 mg/dL Normal 65-99 [facility] Comment on above: Performed By: #### E LEC #### [facility] ([id number]) [address] [place] [address] Potassium [Moles/Vol] 4.4 mmol/L Normal 3.5-5.0 [facility] Comment on above: Performed By: #### E LEC #### [facility] ([id number]) [address] [place] [address] [place] [address] Sodium [Moles/Vol] 138 mmol/L Normal 134-146 [facility] Comment on above: Performed By: #### E LEC #### [facility] ([id number]) [address] [place] [address] [place] [address] Urea nitrogen [Mass/Vol] 13 mg/dL Normal 5-27 [facility] Comment on above: Performed By: #### E LEC #### [facility] ([id number]) [address] [place] [address], [address] [place] [address] CK [Catalytic activity/Vol]o n 10-16-2023 CPK 35 U/L Normal 24-170 [facility] Comment on above: Performed By: #### 1 7928-3 #### [facility] ([id number]) [address] [place] [address] COMPLETE BLOOD COUNTon 10-16 Erythrocyte distribution width (RBC) [Ratio] 20.1 % High 11.5-15.0 [facility] Comment on above: Performed By: #### E LEC #### [facility] ([id number]) [address] [place] [address] Hematocrit (Bld) [Volume fraction] 26.5 % Low 35-47 [facility] Comment on above: Performed By: #### E LEC #### [facility] ([id number]) [address] [place] [address] Hemoglobin (Bld) [Mass/Vol] 8.5 g/dL Low 11.7-15.5 [facility] Comment on above: Performed By: #### E LEC #### [facility] ([id number]) [address] [place] [address] MCH (RBC) [Entitic mass] 25.9 pg Low 27-34 [facility] Comment on above: Performed By: #### E LEC #### [facility] ([id number]) [address] [place] [address] MCHC (RBC) [Mass/Vol] 32.1 g/dL Normal 32-36 [facility] Comment on above: Performed By: #### E LEC #### [facility] ([id number]) [address], [address] [place] [address] MCV (RBC) [Entitic vol] 81 fL Normal 80-100 [facility] Comment on above: Performed By: #### E LEC #### [facility] ([id number]) [address], [address] [place] [address] Platelet mean volume (Bld) [Entitic vol] 6.8 fL Low 7-12 [facility] [place] [facility] Comment on above: Performed By: #### E LEC #### [facility] ([id number]) [address] [place] [address] Platelets (Bld) [#/Vol] 633 10*3/uL High 150-450 [facility] Comment on above: Performed By: #### E LEC #### [facility] ([id number]) [address], [address] [place] [address] RBC COUNT 3.28 X10E12/L Low 3.80-5.20 [facility] Comment on above: Performed By: #### E LEC #### [facility] ([id number]) [address], [address] [address] WBC (Bld) [#/Vol] 16.2 10*3/uL High 4.0-11.0 [facility] Comment on above: Performed By: #### E LEC #### [facility] ([id number]) [address], [address] [place] [address] Calcium.ionized (Bld) [Mass/ Vol]on 10-16-2023 IONIZED CALCIUM 5.0 mg/dL Normal 4.5-5.3 [facility] Comment on above: Performed By: #### E LEC #### [facility] ([id number]) [address], [address] [place] [address] Glucose Glucometer (BldC) [M ass/Vol]on 10-16-2023 Glucose [Mass/Vol] 119 mg/dL High 65-99 [facility] Glucose [Mass/Vol] 128 mg/dL High 65-99 [facility] Glucose [Mass/Vol] 125 mg/dL High 65-99 [facility] Glucose [Mass/Vol] 88 mg/dL Normal 65-99 [facility] LIVER PANELon 10-16-2023 Albumin [Mass/Vol] 2.6 g/dL Low 3.2-5.3 [facility] Comment on above: Performed By: #### 1 7928-3 #### [facility] ([id number]) [address], [address] [place] [address] ALP [Catalytic activity/Vol] 104 U/L Normal 39-130 [facility] Comment on above: Performed By: #### 1 7928-3 #### [facility] ([id number]) [address], [address] [place] [address] ALT [Catalytic activity/Vol] 6 U/L Normal 0-31 [facility] Comment on above: Performed By: #### 1 7928-3 #### [facility] ([id number]) [address] [place] [address] AST [Catalytic activity/Vol] 16 U/L Normal 0-41 [facility] Comment on above: Performed By: #### 1 7928-3 #### [facility] ([id number]) [address] [place] [address] Bilirubin [Mass/Vol] 0.3 mg/dL Normal 0.3-1.2 [facility] Comment on above: Performed By: #### 1 7928-3 #### [facility] ([id number]) [address], [address] [place] [address] Bilirubin.direct [Mass/Vol] 0.1 mg/dL Normal 0.0-0.4 [facility] Comment on above: Performed By: #### 1 7928-3 #### [facility] ([id number]) [address], [address] [place] [address] Protein [Mass/Vol] 6.9 g/dL Normal 6.0-8.0 [facility] Comment on above: Performed By: #### 1 7928-3 #### [facility] ([id number]) [address] [place] [address] MAGNESIUMon 10-16-2023 Magnesium [Mass/Vol] 2.9 mg/dL High 1.8-2.6 [facility] Comment on above: Performed By: #### E LEC #### [facility] ([id number]) [address] [place] [address] PHOSPHORUSon 10-16-2023 Phosphate [Mass/Vol] 4.3 mg/dL Normal 2.4-4.9 [facility] Comment on above: Performed By: #### 1 7928-3 #### [facility] ([id number]) [address] [place] [address] BASIC METABOLIC PANLon 10-15 Anion gap [Moles/Vol] 9 mmol/L Normal 5-15 [facility] Comment on above: Performed By: #### Timmy MILLIGAN BMP, , 2776-10 #### [facility] ([id number]) [address] [place] [address] Calcium [Mass/Vol] 9.4 mg/dL Normal 8.5-10.5 [facility] Comment on above: Performed By: #### Timmy MILLIGAN, BMP, , 2776-10 #### [facility] ([id number]) [address] [place] [address] Chloride [Moles/Vol] 103 mmol/L Normal 98-109 [facility] Comment on above: Performed By: #### Timmy BC, BMP, , 2776-10 #### [facility] ([id number]) [address] [place] [address] CO2 [Moles/Vol] 23 mmol/L Normal 22-32 [facility] Comment on above: Performed By: #### Timmy BC, BMP, , 2776-10 #### [facility] ([id number]) [address] [place] [address] Creatinine [Mass/Vol] 0.94 mg/dL Normal 0.40-1.00 [facility] Comment on above: Result Comment: METH OD TRACEABLE TO IDMS STANDARD Performed By: #### SANTOSH SALEEM, , 2776-10 #### [facility] ([id number]) [address] [place] [address] GFR/1.73 sq M.predicted among non-blacks MDRD (S/P/Bld) [Vol rate/Area] 62 mL/min/{1.73_m2} Normal >59 [facility] Comment on above: Result Comment: Reported eGFR is based on the CKD-EPI 2020 equation that does not use a race coefficient. Performed By: #### SANTOSH SALEEM, , 2776-10 #### [facility] ([id number]) [address] [address] [place] [address] Glucose [Mass/Vol] 89 mg/dL Normal 65-99 [facility] Comment on above: Performed By: #### SANTOSH SALEEM, , 2776-10 #### [facility] ([id number]) [address] [address] [place] [address] Potassium [Moles/Vol] 4.2 mmol/L Normal 3.5-5.0 [facility] Comment on above: Performed By: #### SANTOSH SALEEM, , 2776-10 #### [facility] ([id number]) [address] [address] [place] [address] Sodium [Moles/Vol] 135 mmol/L Normal 134-146 [facility] Comment on above: Performed By: #### SANTOSH SALEEM, , 2776-10 #### [facility] ([id number]) [address] [address] [place] [address] Urea nitrogen [Mass/Vol] 13 mg/dL Normal 5-27 [facility] Comment on above: Performed By: #### C SRINI, BMP, , 2776-10 #### [facility] ([id number]) [address], [address] [place] [address] COMPLETE BLOOD COUNTon 10-15 Erythrocyte distribution width (RBC) [Ratio] 18.7 % High 11.5-15.0 [facility] Comment on above: Performed By: #### C SRINI, BMP, , 2776-10 #### [facility] ([id number]) [address], [address] [place] [address] Hematocrit (Bld) [Volume fraction] 29.7 % Low 35-47 [facility] Comment on above: Performed By: #### Timmy MILLIGAN, BMP, , 2776-10 #### [facility] ([id number]) [address], [address] [place] [address] Hemoglobin (Bld) [Mass/Vol] 9.3 g/dL Low 11.7-15.5 [facility] Comment on above: Performed By: #### Timmy MILLIGAN, BMP, , 2776-10 #### [facility] ([id number]) [address], [address] [place] [address] MCH (RBC) [Entitic mass] 25.1 pg Low 27-34 [facility] Comment on above: Performed By: #### C BC, BMP, , 2776-10 #### [facility] ([id number]) [address], [address] [place] [address] MCHC (RBC) [Mass/Vol] 31.3 g/dL Low 32-36 [facility] Comment on above: Performed By: #### Timmy MILLIGAN, BMP, , 2776-10 #### [facility] ([id number]) [address], [address] [place] [address] MCV (RBC) [Entitic vol] 80 fL Normal 80-100 [facility] Comment on above: Performed By: #### SANTOSH SALEEM, , 2776-10 #### [facility] ([id number]) [address], [address] [place] [address] Platelet mean volume (Bld) [Entitic vol] 7.0 fL Normal 7-12 [facility] Comment on above: Performed By: #### SANTOSH SALEEM, , 2776-10 #### [facility] ([id number]) [address] [place] [address] Platelets (Bld) [#/Vol] 705 10*3/uL High 150-450 [facility] Comment on above: Performed By: #### SANTOSH SALEEM, , 2776-10 #### [facility] ([id number]) [address] [place] [address] RBC COUNT 3.71 X10E12/L Low 3.80-5.20 [facility] Comment on above: Performed By: #### SANTOSH SALEEM, , 2776-10 #### [facility] ([id number]) [address] [place] [address] WBC (Bld) [#/Vol] 24.4 10*3/uL High 4.0-11.0 [facility] Comment on above: Performed By: #### SANTOSH SALEEM, , 2776-10 #### [facility] ([id number]) [address], [address] [place] [address] Calcium.ionized (Bld) [Mass/ Vol]on 10-15-2023 IONIZED CALCIUM 4.8 mg/dL Normal 4.5-5.3 [facility] Comment on above: Performed By: #### 3 8230-9 #### [facility] ([id number]) [address], [address] [place] [address] FL SWALLOW MOTILITY FUNCTION on 10-15-2023 FL [...] Pereira MD on 10/15/2023 2:48 PM Normal [facility] Glucose Glucometer (dC) [M ass/Vol]on 10-15-2023 Glucose [Mass/Vol] 111 mg/dL High 65-99 [facility] Glucose [Mass/Vol] 93 mg/dL Normal 65-99 [facility] Glucose [Mass/Vol] 99 mg/dL Normal 65-99 [facility] MAGNESIUMon 10-15-2023 Magnesium [Mass/Vol] 1.5 mg/dL Low 1.8-2.6 [facility] Comment on above: Performed By: #### E LEC #### [facility] ([id number]) [address], [address] [place] [address] PHOSPHORUSon 10-15-2023 Phosphate [Mass/Vol] 3.4 mg/dL Normal 2.4-4.9 [facility] Comment on above: Performed By: #### E LEC #### [facility] ([id number]) [address], [address] [place] [address] Vancomycin trough [Mass/Vol] on 10-15-2023 VANCOMYCIN TROUGH 15.5 ug/mL Normal 5.0-20.0 [facility] Comment on above: Performed By: #### E LEC #### [facility] ([id number]) [address], [address] [place] [address] ELECTROLYTESon 10-14-2023 Anion gap [Moles/Vol] 7 mmol/L Normal 5-15 [facility] Comment on above: Performed By: #### E LEC #### [facility] ([id number]) [address], [address] [place] [address] Chloride [Moles/Vol] 106 mmol/L Normal 98-109 [facility] Comment on above: Performed By: #### E LEC #### [facility] ([id number]) [address], [address] [place] [address] CO2 [Moles/Vol] 22 mmol/L Normal 22-32 [facility] Comment on above: Performed By: #### E LEC #### [facility] ([id number]) [address], [address] [place], [place] [address] Potassium [Moles/Vol] 5.8 mmol/L High 3.5-5.0 [facility] Comment on above: Performed By: #### E LEC #### [facility] ([id number]) [address], [address] [place] [address] Sodium [Moles/Vol] 135 mmol/L Normal 134-146 [facility] Comment on above: Performed By: #### E LEC #### [facility] ([id number]) [address], [address] [place] [address] Glucose Glucometer (BldC) [M ass/Vol]on 10-14-2023 Glucose [Mass/Vol] 84 mg/dL Normal 65-99 [facility] Glucose [Mass/Vol] 105 mg/dL High 65-99 [facility] Glucose [Mass/Vol] 85 mg/dL Normal 65-99 [facility] BLOOD CULTUREon 10-13-2023 Bacteria identified Aer cx Nom (Bld) SPECIMEN NOTES SUBOPTIMAL VOLUME OF BLOOD COLLECTED, RESULTS MAY BE AFFECTED. CULTURE RESULTS NO GROWTH 5 DAYS Normal [facility] Comment on above: Performed By: #### 1 7928-3 #### [facility] ([id number]) [address] [place] [address] BLOOD CULTUREon 10-05-2023 Bacteria identified Aer cx Nom (Bld) CULTURE RESULTS STAPHYLOCOCCUS AUREUS METHICILLIN RESISTANT Staphylcoccus aureus detected by PCR. mecA/C and MREJ gene detected by PCR (MRSA). Organism: STAPHYLOCOCCUS AUREUS Antibiotic Interpretation NATALIA Status CEFAZOLIN R F CLINDAMYCIN R >=4 F OXACILLIN R >=4 F TRIMETH/SULFAMETHOXAZOLE S <=.5/9.5 F VANCOMYCIN S 1 F DAPTOMYCIN S 0.25 F DOXYCYCLINE S 2 F Susceptible [facility] Comment on above: Performed By: #### 1 7928-3 #### [facility] ([id number]) [address], [address] [place] [address] Calcium [Mass/volume] in Ser um or PlasmaOrdered By: Jesus Alberto Aquino on 08-20-2023 Calcium [Mass/Vol] 7.5 mg/dL 8.6-10.3 [facility] Carbon dioxide, total [Moles /volume] in Serum or PlasmaOrdered By: Jesus Alberto Aquino on 08-20-2023 CO2 [Moles/Vol] 25.5 mmol/L 21.0-31.0 [facility] Chloride [Moles/volume] in S kaveh or PlasmaOrdered By: Jesus Alberto Aquino on 08-20-2023 Chloride [Moles/Vol] 109 mmol/L 98-107 [facility] Creatinine [Mass/volume] in Serum or PlasmaOrdered By: Jesus Alberto Aquino on 08-20-2023 Creatinine [Mass/Vol] 1.08 mg/dL 0.60-1.20 [facility] Comment on above: Delta: 1.60 on 08/19 Glucose [Mass/volume] in Ser um or PlasmaOrdered By: Jesus Alberto Aquino on 08-20-2023 Glucose [Mass/Vol] 57 mg/dL 70-100 [facility] Comment on above: ADA recommended refe rence rangeRandom Glucose Reference Range is dependent on time and content of last meal. Glucose of more than 200 mg/dL in a nonstressed, ambulatory subject supports the diagnosis of Diabetes Mellitus. No Panel InformationOrdered By: Jesus Alberto Aquino on 08-20-2023 Estimated GFR (CKD-EPI) 52.905 mL/Min [facility] Creatinine Clearance (Chem 41.58 [facility] Potassium [Moles/volume] in Serum or PlasmaOrdered By: Jesus Alberto Aquino on 08-20-2023 Potassium [Moles/Vol] 4.2 mmol/L 3.5-5.1 [facility] Serum or plasma anion gap de terminationOrdered By: Jesus Alberto Aquino on 08-20-2023 Anion gap [Moles/Vol] 12.7 mmol/L 6.0-15.0 [facility] Sodium [Moles/volume] in Ser um or PlasmaOrdered By: Jesus Alberto Aquino on 08-20-2023 Sodium [Moles/Vol] 143 mmol/L 136-145 [facility] Urea nitrogen [Mass/volume] in Serum or PlasmaOrdered By: Jesus Alberto Aquino on 08-20-2023 Urea nitrogen [Mass/Vol] 19 mg/dL 7-25 [facility] Erythrocyte distribution wid th Auto (RBC) [Ratio]Ordered By: Jesus Alberto Aquino on 08-19-2023 Erythrocyte distribution width (RBC) [Ratio] 17.2 % 11.9-15.3 [facility] Hematocrit Auto (Bld) [Volum e fraction]Ordered By: Jesus Alberto Aquino on 08-19-2023 Hematocrit (Bld) [Volume fraction] 31.8 % 34.0-46.4 [facility] Hemoglobin [Mass/volume] in BloodOrdered By: Jesus Alberto Aquino on 08-19-2023 Hemoglobin (Bld) [Mass/Vol] 10.3 g/dL 11.8-15.4 [facility] Leukocytes [#/volume] correc juma for nucleated erythrocytes in Blood by Automated counOrdered By: Jesus Alberto Aquino on 08-19-2023 WBC corrected for nucl RBC Auto (Bld) [#/Vol] 15.6 10*3/uL 3.8-11.6 [facility] MCH Auto (RBC) [Entitic mass ]Ordered By: Jesus Alberto Aquino on 08-19-2023 MCH (RBC) [Entitic mass] 27.7 pg 24.7-34.3 [facility] MCHC Auto (RBC) [Mass/Vol]Or dered By: Jesus Alberto Aquino on 08-19-2023 MCHC (RBC) [Mass/Vol] 32.4 g/dL 32.0-35.0 [facility] MCV Auto (RBC) [Entitic vol] Ordered By: Jesus Alberto Aquino on 08-19-2023 MCV (RBC) [Entitic vol] 85.4 fL 80-100 [facility] Platelet mean volume Auto (B ld) [Entitic vol]Ordered By: Jesus Alberto Aquino on 08-19-2023 Platelet mean volume (Bld) [Entitic vol] 8.9 fL 6.3-10.7 [facility] Platelets Auto (Bld) [#/Vol] Ordered By: Jesus Alberto Aquino on 08-19-2023 Platelets (Bld) [#/Vol] 201 10*3/uL 150-450 [facility] RBC Auto (Bld) [#/Vol]Ordere d By: Jesus Alberto Aquino on 08-19-2023 RBC (Bld) [#/Vol] 3.72 10*6/uL 3.60-5.00 [facility] Basophils Auto (Bld) [#/Vol] Ordered By: Jesus Alberto Aquino on 08-18-2023 Basophils (Bld) [#/Vol] 0.1 10*3/uL 0.0-0.2 [facility] Basophils/100 WBC Auto (Bld) Ordered By: Jesus Alberto Aquino on 08-18-2023 Basophils/100 WBC (Bld) 0.3 % . [facility] Eosinophils Auto (Bld) [#/Vo l]Ordered By: Jesus Alberto Aquino on 08-18-2023 Eosinophils (Bld) [#/Vol] 0.0 10*3/uL 0.0-0.45 [facility] Eosinophils/100 WBC Auto (Bl d)Ordered By: Jesus Alberto Aquino on 08-18-2023 Eosinophils/100 WBC (Bld) 0.1 % . [facility] Lymphocytes Auto (Bld) [#/Vo l]Ordered By: Jesus Alberto Aquino on 08-18-2023 Lymphocytes (Bld) [#/Vol] 2.8 10*3/uL 1.00-4.8 [facility] Lymphocytes/100 WBC Auto (Bl d)Ordered By: Jesus Alberto Aquino on 08-18-2023 Lymphocytes/100 WBC (Bld) 10.9 % . [facility] Monocytes Auto (Bld) [#/Vol] Ordered By: Jesus Alberto Aquino on 08-18-2023 Monocytes (Bld) [#/Vol] 1.1 10*3/uL 0.0-0.8 [facility] Monocytes/100 WBC Auto (Bld) Ordered By: Jesus Alberto Aquino on 08-18-2023 Monocytes/100 WBC (Bld) 4.4 % . [facility] Neutrophils Auto (Bld) [#/Vo l]Ordered By: Jesus Alberto Aquino on 08-18-2023 Neutrophils (Bld) [#/Vol] 21.6 10*3/uL 1.8-7.7 [facility] Neutrophils/100 WBC Auto (Bl d)Ordered By: Jesus Alberto Aquino on 08-18-2023 Neutrophils/100 WBC (Bld) 84.3 % . [facility] Nucleated erythrocytes [Pres ence] in Blood by Automated countOrdered By: Jesus Alberto Aquino on 08-18-2023 Nucleated RBC Auto Ql (Bld) 0.2 /100{WBC} 0-0.5 [facility] WBC Auto (Bld) [#/Vol]Ordere d By: Jesus Alberto Aquino on 08-18-2023 WBC (Bld) [#/Vol] 25.6 10*3/uL 3.8-11.6 [facility] Activated partial thrombopla stin time (aPTT) in platelet poor plasma by coagulation aOrdered By: Maury Morrissey on 08-17-2023 aPTT Coag (PPP) [Time] 26.3 s 25.1-36.5 [facility] Comment on above: A hematocrit value g reater than 55% may lead to inaccurate results in coagulation testing. Patients having hematocrit values >55% require a special collection tube for coagulation studies. Please contact the laboratory at [phone] for redraw instructions. Alanine aminotransferase [En zymatic activity/volume] in Serum or PlasmaOrdered By: Maury Morrissey on 08-17-2023 ALT [Catalytic activity/Vol] 24 U/L 7-52 [facility] Albumin [Mass/volume] in Ser um or Plasma by Bromocresol green (BCG) dye binding methoOrdered By: Maury Morrissey on 08-17-2023 Albumin BCG dye [Mass/Vol] 3.4 g/dL 3.5-5.7 [facility] Alkaline phosphatase [Enzyma tic activity/volume] in Serum or PlasmaOrdered By: Maury Morrissey on 08-17-2023 ALP [Catalytic activity/Vol] 64 U/L 34-104 [facility] Anisocytosis LM Ql (Bld)Orde red By: Maury Morrissey on 08-17-2023 Anisocytosis Ql (Bld) Moderate [facility] Aspartate aminotransferase [ Enzymatic activity/volume] in Serum or PlasmaOrdered By: Maury Morrissey on 08-17-2023 AST [Catalytic activity/Vol] 23 U/L 13-39 [facility] Automated erythrocytes count in urine sediment (number/area)Ordered By: Maury Morrissey on 08-17-2023 RBC Auto (Urine sed) [#/Area] 0-1 [HPF] 0-4 [facility] Automated leukocytes count i n urine sediment (number/area)Ordered By: Maury Morrissey on 08-17-2023 WBC Auto (Urine sed) [#/Area] 1-2 [HPF] 0-4 [facility] Basophils Auto (Bld) [#/Vol] Ordered By: Maury Morrissey on 08-17-2023 Basophils (Bld) [#/Vol] 0.0 10*3/uL 0.0-0.2 [facility] Basophils/100 WBC Auto (Bld) Ordered By: Maury Morrissey on 08-17-2023 Basophils/100 WBC (Bld) 0.2 % . [facility] Bilirubin Test strip Ql (U)O rdered By: Maury Morrissey on 08-17-2023 Bilirubin Ql (U) Negative Negative [facility] Bilirubin.direct [Mass/volum e] in Serum or PlasmaOrdered By: Maury Morrissey on 08-17-2023 Bilirubin.direct [Mass/Vol] 0.20 mg/dL 0.03-0.18 [facility] Bilirubin.total [Mass/volume ] in Serum or PlasmaOrdered By: Maury Morrissey on 08-17-2023 Bilirubin [Mass/Vol] 0.6 mg/dL 0.3-1.0 [facility] Calcium [Mass/volume] in Ser um or PlasmaOrdered By: Maury Morrissey on 08-17-2023 Calcium [Mass/Vol] 9.1 mg/dL 8.6-10.3 [facility] Carbon dioxide, total [Moles /volume] in Serum or PlasmaOrdered By: Maury Morrissey on 08-17-2023 CO2 [Moles/Vol] 27.3 mmol/L 21.0-31.0 [facility] Chloride [Moles/volume] in S kaveh or PlasmaOrdered By: Maury Morrissey on 08-17-2023 Chloride [Moles/Vol] 97 mmol/L 98-107 [facility] Color Auto (U)Ordered By: Arturo Morrissey on 08-17-2023 Color (U) Yellow Yellow [facility] Creatine kinase [Enzymatic a ctivity/volume] in Serum or PlasmaOrdered By: Maury Morrissey on 08-17-2023 CK [Catalytic activity/Vol] 87 U/L 30-223 [facility] Creatinine [Mass/volume] in Serum or PlasmaOrdered By: Maury Morrissey on 08-17-2023 Creatinine [Mass/Vol] 4.44 mg/dL 0.60-1.20 [facility] Eosinophils Auto (Bld) [#/Vo l]Ordered By: Maury Morrissey on 08-17-2023 Eosinophils (Bld) [#/Vol] 0.0 10*3/uL 0.0-0.45 [facility] Eosinophils/100 WBC Auto (Bl d)Ordered By: Maury Morrissey on 08-17-2023 Eosinophils/100 WBC (Bld) 0.0 % . [facility] Erythrocyte distribution wid th Auto (RBC) [Ratio]Ordered By: Maury Morrissey on 08-17-2023 Erythrocyte distribution width (RBC) [Ratio] 17.6 % 11.9-15.3 [facility] Globulin Calc (S) [Mass/Vol] Ordered By: Maury Morrissey on 08-17-2023 Globulin (S) [Mass/Vol] 3.7 g/dL [facility] Glucose [Mass/volume] in Ser um or PlasmaOrdered By: Maury Morrissey on 08-17-2023 Glucose [Mass/Vol] 79 mg/dL 70-100 [facility] Comment on above: ADA recommended refe rence rangeRandom Glucose Reference Range is dependent on time and content of last meal. Glucose of more than 200 mg/dL in a nonstressed, ambulatory subject supports the diagnosis of Diabetes Mellitus. Hematocrit Auto (Bld) [Volum e fraction]Ordered By: Maury Morrissey on 08-17-2023 Hematocrit (Bld) [Volume fraction] 37.9 % 34.0-46.4 [facility] Hemoglobin [Mass/volume] in BloodOrdered By: Maury Morrissey on 08-17-2023 Hemoglobin (Bld) [Mass/Vol] 12.0 g/dL 11.8-15.4 [facility] Hypochromia LM Ql (Bld)Order ed By: Maury Morrissey on 08-17-2023 Hypochromia Ql (Bld) Slight [facility] INR in Platelet poor plasma by Coagulation assayOrdered By: Maury Morrissey on 08-17-2023 INR Coag (PPP) [Relative time] 1.1 {INR} [facility] Comment on above: INR Therapeutic [...] on 08-17-2023 Ketones (U) [Mass/Vol] Negative Negative [facility] Laboratory - UrinalysisOrder ed By: Maury Morrissey on 08-17-2023 Hyaline casts LM Ql (Urine sed) 0-8 [LPF] 0-8 [facility] Lactate [Moles/volume] in Se rum or PlasmaOrdered By: Maury Morrissey on 08-17-2023 Lactate [Moles/Vol] 1.1 mmol/L 0.5-2.2 [facility] Leukocytes [#/volume] correc juma for nucleated erythrocytes in Blood by Automated counOrdered By: Maury Morrissey on 08-17-2023 WBC corrected for nucl RBC Auto (Bld) [#/Vol] 29.3 10*3/uL 3.8-11.6 [facility] Lymphocytes Auto (Bld) [#/Vo l]Ordered By: Maury Morrissey on 08-17-2023 Lymphocytes (Bld) [#/Vol] 2.3 10*3/uL 1.00-4.8 [facility] Lymphocytes/100 WBC Auto (Bl d)Ordered By: Maury Morrissey on 08-17-2023 Lymphocytes/100 WBC (Bld) 7.8 % . [facility] MCH Auto (RBC) [Entitic mass ]Ordered By: Maury Morrissey on 08-17-2023 MCH (RBC) [Entitic mass] 27.3 pg 24.7-34.3 [facility] MCHC Auto (RBC) [Mass/Vol]Or dered By: Maury Morrissey on 08-17-2023 MCHC (RBC) [Mass/Vol] 31.6 g/dL 32.0-35.0 [facility] MCV Auto (RBC) [Entitic vol] Ordered By: Maury Morrissey on 08-17-2023 MCV (RBC) [Entitic vol] 86.4 fL 80-100 [facility] Monocyte distribution width [Entitic volume] in Blood by AutomatedOrdered By: Maury Morrissey on 08-17-2023 Monocyte distribution width Auto (Bld) [Entitic vol] 23.25 % 0.00-20.00 [facility] Comment on above: For adults in ED, MD W > 20.0 may be associated with a higher risk of sepsis during the first 12 hrs of hospital admission Monocytes Auto (Bld) [#/Vol] Ordered By: Maury Morrissey on 08-17-2023 Monocytes (Bld) [#/Vol] 1.6 10*3/uL 0.0-0.8 [facility] Monocytes/100 WBC Auto (Bld) Ordered By: Maury Morrissey on 08-17-2023 Monocytes/100 WBC (Bld) 5.5 % . [facility] Natriuretic peptide B [Mass/ Vol]Ordered By: Maury Morrissey on 08-17-2023 Natriuretic peptide B (Bld) [Mass/Vol] 68.0 pg/mL 5-100 [facility] Neutrophils Auto (Bld) [#/Vo l]Ordered By: Maury Morrissey on 08-17-2023 Neutrophils (Bld) [#/Vol] 25.4 10*3/uL 1.8-7.7 [facility] Neutrophils/100 WBC Auto (Bl d)Ordered By: Maruy Morrissey on 08-17-2023 Neutrophils/100 WBC (Bld) 86.5 % . [facility] Nitrite Test strip Ql (U)Ord ered By: Maury Morrissey on 08-17-2023 Nitrite Ql (U) Negative Negative [facility] No Panel InformationOrdered By: Maury Morrissey on 08-17-2023 Estimated GFR (CKD-EPI) 9.700 mL/Min [facility] Creatinine Clearance (Chem 10.00 [facility] Nucleated erythrocytes [Pres ence] in Blood by Automated countOrdered By: Maury Morrissey on 08-17-2023 Nucleated RBC Auto Ql (Bld) 0.1 /100{WBC} 0-0.5 [facility] Platelet adequacy [Presence] in Blood by Light microscopyOrdered By: Maury Morrissey on 08-17-2023 Platelets LM Ql (Bld) Normal Normal [facility] Platelet mean volume Auto (B ld) [Entitic vol]Ordered By: Maury Morrissey on 08-17-2023 Platelet mean volume (Bld) [Entitic vol] 8.8 fL 6.3-10.7 [facility] Platelet morphology finding [Identifier] in BloodOrdered By: Maury Morrissey on 08-17-2023 Platelet morphology finding Nom (Bld) Normal Normal [facility] Platelets Auto (Bld) [#/Vol] Ordered By: Maury Morrissey on 08-17-2023 Platelets (Bld) [#/Vol] 298 10*3/uL 150-450 [facility] Polychromasia [Presence] in Blood by Light microscopyOrdered By: Maury Morrissey on 08-17-2023 Polychromasia LM Ql (Bld) Slight [facility] Potassium [Moles/volume] in Serum or PlasmaOrdered By: Maury Morrissey on 08-17-2023 Potassium [Moles/Vol] 4.5 mmol/L 3.5-5.1 [facility] Protein Auto test strip (U) [Mass/Vol]Ordered By: Maury Morrissey on 08-17-2023 Protein (U) [Mass/Vol] Negative Negative [facility] Protein [Mass/volume] in Ser um or PlasmaOrdered By: Maury Morrissey on 08-17-2023 Protein [Mass/Vol] 7.1 g/dL 6.4-8.9 [facility] Prothrombin time (PT)Ordered By: Maury Morrissey on 08-17-2023 PT Coag (PPP) [Time] 12.6 s 9.0-12.9 [facility] Comment on above: A hematocrit value g reater than 55% may lead to inaccurate results in coagulation testing. Patients having hematocrit values >55% require a special collection tube for coagulation studies. Please contact the laboratory at [phone] for redraw instructions. RBC Auto (Bld) [#/Vol]Ordere d By: Maury Morrissey on 08-17-2023 RBC (Bld) [#/Vol] 4.39 10*6/uL 3.60-5.00 [facility] RBC morphologyOrdered By: Arturo Morrissey on 08-17-2023 RBC morphology finding Nom (Bld) N/A [facility] Serum or plasma albumin/glob ulin mass ratioOrdered By: Maury Morrissey on 08-17-2023 Albumin/Globulin [Mass ratio] 0.9 {ratio} [facility] Serum or plasma anion gap de terminationOrdered By: Maury Morrissey on 08-17-2023 Anion gap [Moles/Vol] 23.2 mmol/L 6.0-15.0 [facility] Serum or plasma non-glucuron idated bilirubin measurement (mass/volume)Ordered By: Maury Morrissey on 08-17-2023 Bilirubin.indirect [Mass/Vol] 0.4 mg/dL [facility] Sodium [Moles/volume] in Ser um or PlasmaOrdered By: Maury Morrissey on 08-17-2023 Sodium [Moles/Vol] 143 mmol/L 136-145 [facility] Specific gravity Auto test s trip (U) [Rel density]Ordered By: Maury Morrissey on 08-17-2023 Specific gravity (U) [Rel density] 1.008 1.001-1.03 0 [facility] Squamous epithelial cells de tection in urine sediment by light microscopyOrdered By: Maury Morrissey on 08-17-2023 Epithelial cells.squamous LM Ql (Urine sed) None seen [HPF] 0-2 [facility] Troponin I.cardiac [Mass/vol ume] in Serum or Plasma by Detection limit <= 0.01 ng/Ordered By: Maury Morrissey on 08-17-2023 Troponin I.cardiac DL <= 0.01 ng/mL [Mass/Vol] 38.1 pg/mL 0.0-15.0 [facility] Urea nitrogen [Mass/volume] in Serum or PlasmaOrdered By: Maury Morrissey on 08-17-2023 Urea nitrogen [Mass/Vol] 92 mg/dL 7-25 [facility] Urine bacteria detection by automated methodOrdered By: Maury Morrissey on 08-17-2023 Bacteria Auto Ql (U) 1+ None Seen [facility] Urine clarity by refractomet ry automatedOrdered By: Maury Morrissey on 08-17-2023 Clarity Refractometry automated (U) Clear Clear [facility] Urine glucose measurement by automated test strip (mass/volume)Ordered By: Maury Morrissey on 08-17-2023 Glucose Auto test strip (U) [Mass/Vol] Normal mg/dL Normal [facility] Urine hemoglobin detection b y automated test stripOrdered By: Maury Morrissey on 08-17-2023 Hemoglobin Auto test strip Ql (U) Trace Negative [facility] Urine leukocyte esterase det ection by automated test stripOrdered By: Maury Morrissey on 08-17-2023 Leukocyte esterase Auto test strip Ql (U) Negative Negative [facility] Urobilinogen Auto test strip (U) [Mass/Vol]Ordered By: Maury Morrissey on 08-17-2023 Urobilinogen (U) [Mass/Vol] Normal mg/dL Normal [facility] WBC Auto (Bld) [#/Vol]Ordere d By: Maury Morrissey on 08-17-2023 WBC (Bld) [#/Vol] 29.3 10*3/uL 3.8-11.6 [facility] pH Auto test strip (U)Ordere d By: Maury Morrissey on 08-17-2023 pH (U) 5.5 [pH] 5.0-9.0 [facility] Anisocytosis LM Ql (Bld)Orde red By: Bhavesh Cristobal on 07-14-2023 Anisocytosis Ql (Bld) Marked [facility] Basophils Auto (Bld) [#/Vol] Ordered By: Bhavesh Cristobal on 07-14-2023 Basophils (Bld) [#/Vol] 0.1 10*3/uL 0.0-0.2 [facility] Basophils/100 WBC Auto (Bld) Ordered By: Bhavesh Cristobal on 07-14-2023 Basophils/100 WBC (Bld) 0.3 % . [facility] Calcium [Mass/volume] in Ser um or PlasmaOrdered By: Bhavesh Cristobal on 07-14-2023 Calcium [Mass/Vol] 8.0 mg/dL 8.6-10.3 [facility] Carbon dioxide, total [Moles /volume] in Serum or PlasmaOrdered By: Bhavesh Cristobal on 07-14-2023 CO2 [Moles/Vol] 28.1 mmol/L 21.0-31.0 [facility] Chloride [Moles/volume] in S kaveh or PlasmaOrdered By: Bhavesh Cristobal on 07-14-2023 Chloride [Moles/Vol] 110 mmol/L 98-107 [facility] Creatinine [Mass/volume] in Serum or PlasmaOrdered By: Bhavesh Cristobal on 07-14-2023 Creatinine [Mass/Vol] 1.10 mg/dL 0.60-1.20 [facility] Eosinophils Auto (Bld) [#/Vo l]Ordered By: Bhavesh Cristobal on 07-14-2023 Eosinophils (Bld) [#/Vol] 0.1 10*3/uL 0.0-0.45 [facility] Eosinophils/100 WBC Auto (Bl d)Ordered By: Bhavesh Cristobal on 07-14-2023 Eosinophils/100 WBC (Bld) 0.4 % . [facility] Erythrocyte distribution wid th Auto (RBC) [Ratio]Ordered By: Bhavesh Cristobal on 07-14-2023 Erythrocyte distribution width (RBC) [Ratio] 22.8 % 11.9-15.3 [facility] Glucose Glucometer (BldC) [M ass/Vol]Ordered By: Jolanta Mckenzie on 07-14-2023 Glucose [Mass/Vol] 80 mg/dL [facility] Comment on above: Random Glucose Refer ence Range is dependent on time and content of last meal. Glucose of more than 200 mg/dL in a nonstressed, ambulatory subject supports the diagnosis of Diabetes Mellitus. Glucose [Mass/volume] in Ser um or PlasmaOrdered By: Bhavesh Cristobal on 07-14-2023 Glucose [Mass/Vol] 84 mg/dL 70-100 [facility] Comment on above: ADA recommended refe rence rangeRandom Glucose Reference Range is dependent on time and content of last meal. Glucose of more than 200 mg/dL in a nonstressed, ambulatory subject supports the diagnosis of Diabetes Mellitus. Hematocrit Auto (Bld) [Volum e fraction]Ordered By: Bhavesh Cristobal on 07-14-2023 Hematocrit (Bld) [Volume fraction] 33.6 % 34.0-46.4 [facility] Hemoglobin [Mass/volume] in BloodOrdered By: Bhavesh Cristobal on 07-14-2023 Hemoglobin (Bld) [Mass/Vol] 10.5 g/dL 11.8-15.4 [facility] Hypochromia LM Ql (Bld)Order ed By: Bhavesh Cristobal on 07-14-2023 Hypochromia Ql (Bld) Slight [facility] Leukocytes [#/volume] correc juma for nucleated erythrocytes in Blood by Automated counOrdered By: Bhavesh Cristobal on 07-14-2023 WBC corrected for nucl RBC Auto (Bld) [#/Vol] 19.3 10*3/uL 3.8-11.6 [facility] Lymphocytes Auto (Bld) [#/Vo l]Ordered By: Bhavesh Cristobal on 07-14-2023 Lymphocytes (Bld) [#/Vol] 4.3 10*3/uL 1.00-4.8 [facility] Lymphocytes/100 WBC Auto (Bl d)Ordered By: Bhavesh Cristobal on 07-14-2023 Lymphocytes/100 WBC (Bld) 22.1 % . [facility] MCH Auto (RBC) [Entitic mass ]Ordered By: Bhavesh Cristobal on 07-14-2023 MCH (RBC) [Entitic mass] 26.2 pg 24.7-34.3 [facility] MCHC Auto (RBC) [Mass/Vol]Or dered By: Bhavesh Cristobal on 07-14-2023 MCHC (RBC) [Mass/Vol] 31.2 g/dL 32.0-35.0 [facility] MCV Auto (RBC) [Entitic vol] Ordered By: Bhavesh Cristobal on 07-14-2023 MCV (RBC) [Entitic vol] 84.0 fL 80-100 [facility] Monocytes Auto (Bld) [#/Vol] Ordered By: Bhavesh Cristobal on 07-14-2023 Monocytes (Bld) [#/Vol] 1.4 10*3/uL 0.0-0.8 [facility] Monocytes/100 WBC Auto (Bld) Ordered By: Bhavesh Cristobal on 07-14-2023 Monocytes/100 WBC (Bld) 7.3 % . [facility] Neutrophils Auto (Bld) [#/Vo l]Ordered By: Bhavesh Cristobal on 07-14-2023 Neutrophils (Bld) [#/Vol] 13.5 10*3/uL 1.8-7.7 [facility] Neutrophils/100 WBC Auto (Bl d)Ordered By: Bhavesh Cristobal on 07-14-2023 Neutrophils/100 WBC (Bld) 69.9 % . [facility] No Panel InformationOrdered By: Bhavesh Cristobal on 07-14-2023 Estimated GFR (CKD-EPI) 51.753 mL/Min [facility] Creatinine Clearance (Chem 42.83 [facility] Nucleated erythrocytes [Pres ence] in Blood by Automated countOrdered By: Bhavesh Cristobal on 07-14-2023 Nucleated RBC Auto Ql (Bld) 0.1 /100{WBC} 0-0.5 [facility] Platelet adequacy [Presence] in Blood by Light microscopyOrdered By: Bhavesh Cristobal on 07-14-2023 Platelets LM Ql (Bld) Normal Normal [facility] Platelet mean volume Auto (B ld) [Entitic vol]Ordered By: Bhavesh Cristobal on 07-14-2023 Platelet mean volume (Bld) [Entitic vol] 7.9 fL 6.3-10.7 [facility] Platelet morphology finding [Identifier] in BloodOrdered By: Bhavesh Cristobal on 07-14-2023 Platelet morphology finding Nom (Bld) Normal Normal [facility] Platelets Auto (Bld) [#/Vol] Ordered By: Bhavesh Cristobal on 07-14-2023 Platelets (Bld) [#/Vol] 238 10*3/uL 150-450 [facility] Polychromasia [Presence] in Blood by Light microscopyOrdered By: Bhavesh Cristobal on 07-14-2023 Polychromasia LM Ql (Bld) Slight [facility] Potassium [Moles/volume] in Serum or PlasmaOrdered By: Bhavesh Cristobal on 07-14-2023 Potassium [Moles/Vol] 4.2 mmol/L 3.5-5.1 [facility] RBC Auto (Bld) [#/Vol]Ordere d By: Bhavesh Cristobal on 07-14-2023 RBC (Bld) [#/Vol] 4.00 10*6/uL 3.60-5.00 [facility] RBC morphologyOrdered By: Wilber Cristobal on 07-14-2023 RBC morphology finding Nom (Bld) N/A [facility] Serum or plasma anion gap de terminationOrdered By: Bhavesh Cristobal on 07-14-2023 Anion gap [Moles/Vol] 9.1 mmol/L 6.0-15.0 [facility] Sodium [Moles/volume] in Ser um or PlasmaOrdered By: Bhavesh Cristobal on 07-14-2023 Sodium [Moles/Vol] 143 mmol/L 136-145 [facility] Urea nitrogen [Mass/volume] in Serum or PlasmaOrdered By: Bhavesh Cristobal on 07-14-2023 Urea nitrogen [Mass/Vol] 24 mg/dL 7-25 [facility] WBC Auto (Bld) [#/Vol]Ordere d By: Bhavesh Cristobal on 07-14-2023 WBC (Bld) [#/Vol] 19.3 10*3/uL 3.8-11.6 [facility] Alanine aminotransferase [En zymatic activity/volume] in Serum or PlasmaOrdered By: Jolanta Mckenzie on 07-12-2023 ALT [Catalytic activity/Vol] 16 U/L 7-52 [facility] Albumin [Mass/volume] in Ser um or Plasma by Bromocresol green (BCG) dye binding methoOrdered By: Jolanta Mckenzie on 07-12-2023 Albumin BCG dye [Mass/Vol] 3.0 g/dL 3.5-5.7 [facility] Alkaline phosphatase [Enzyma tic activity/volume] in Serum or PlasmaOrdered By: Jolanta Mckenzie on 07-12-2023 ALP [Catalytic activity/Vol] 45 U/L 34-104 [facility] Aspartate aminotransferase [ Enzymatic activity/volume] in Serum or PlasmaOrdered By: Jolanta Mckenzie on 07-12-2023 AST [Catalytic activity/Vol] 14 U/L 13-39 [facility] Bilirubin.total [Mass/volume ] in Serum or PlasmaOrdered By: Jolanta Mckenzie on 07-12-2023 Bilirubin [Mass/Vol] 0.3 mg/dL 0.3-1.0 [facility] Globulin Calc (S) [Mass/Vol] Ordered By: Jolanta Mckenzie on 07-12-2023 Globulin (S) [Mass/Vol] 2.7 g/dL [facility] Protein [Mass/volume] in Ser um or PlasmaOrdered By: Jolanta Mckenzie on 07-12-2023 Protein [Mass/Vol] 5.7 g/dL 6.4-8.9 [facility] Serum or plasma albumin/glob ulin mass ratioOrdered By: Jolanta Mckenzie on 07-12-2023 Albumin/Globulin [Mass ratio] 1.1 {ratio} [facility] Acanthocytes [Presence] in B lood by Light microscopyOrdered By: Marshall Dominguez on 07-10-2023 Acanthocytes LM Ql (Bld) Slight [facility] Aerobic cultureOrdered By: Viki Mckenzie on 07-10-2023 Bacteria identified Aer cx Nom (Unsp spec) [facility] Anisocytosis LM Ql (Bld)Orde red By: Marshall Dominguez on 07-10-2023 Anisocytosis Ql (Bld) Moderate [facility] Automated erythrocytes count in urine sediment (number/area)Ordered By: Marshall Dominguez on 07-10-2023 RBC Auto (Urine sed) [#/Area] 3-4 [HPF] 0-4 [facility] Automated leukocytes count i n urine sediment (number/area)Ordered By: Marshall Dominguez on 07-10-2023 WBC Auto (Urine sed) [#/Area] Innumerable [HPF] 0-4 [facility] Bacterial blood cultureOrder ed By: Marshall Dominguez on 07-10-2023 Bacteria identified Cx Nom (Bld) NO GROWTH 5 DAYS [facility] Basophils Auto (Bld) [#/Vol] Ordered By: Marshall Dominguez on 07-10-2023 Basophils (Bld) [#/Vol] 0.0 10*3/uL 0.0-0.2 [facility] Basophils/100 WBC Auto (Bld) Ordered By: Marshall Dominguez on 07-10-2023 Basophils/100 WBC (Bld) 0.2 % . [facility] Bilirubin Test strip Ql (U)O rdered By: Marshall Dominguez on 07-10-2023 Bilirubin Ql (U) Negative Negative [facility] Calcium [Mass/volume] in Ser um or PlasmaOrdered By: Marshall Dominguez on 07-10-2023 Calcium [Mass/Vol] 8.9 mg/dL 8.6-10.3 [facility] Carbon dioxide, total [Moles /volume] in Serum or PlasmaOrdered By: Marshall Dominguez on 07-10-2023 CO2 [Moles/Vol] 32.4 mmol/L 21.0-31.0 [facility] Chloride [Moles/volume] in S kaveh or PlasmaOrdered By: Marshall Dominguez on 07-10-2023 Chloride [Moles/Vol] 105 mmol/L 98-107 [facility] Color Auto (U)Ordered By: Ruslan Dominguez on 07-10-2023 Color (U) Yellow Yellow [facility] Creatinine [Mass/volume] in Serum or PlasmaOrdered By: Marshall Dominguez on 07-10-2023 Creatinine [Mass/Vol] 1.56 mg/dL 0.60-1.20 [facility] Eosinophils Auto (Bld) [#/Vo l]Ordered By: Marshall Dominguez on 07-10-2023 Eosinophils (Bld) [#/Vol] 0.1 10*3/uL 0.0-0.45 [facility] Eosinophils/100 WBC Auto (Bl d)Ordered By: Marshall Dominguez on 07-10-2023 Eosinophils/100 WBC (Bld) 0.4 % . [facility] Erythrocyte distribution wid th Auto (RBC) [Ratio]Ordered By: Marshall Dominguez on 07-10-2023 Erythrocyte distribution width (RBC) [Ratio] 22.2 % 11.9-15.3 [facility] Glucose [Mass/volume] in Ser um or PlasmaOrdered By: Marshall Dominguez on 07-10-2023 Glucose [Mass/Vol] 83 mg/dL 70-100 [facility] Comment on above: ADA recommended refe rence rangeRandom Glucose Reference Range is dependent on time and content of last meal. Glucose of more than 200 mg/dL in a nonstressed, ambulatory subject supports the diagnosis of Diabetes Mellitus. Gram stain for investigation of transfusion reactionOrdered By: Jolanta Mckenzie on 07-10-2023 Microscopic observation Gram stain Nom (Unsp spec) [facility] Hematocrit Auto (Bld) [Volum e fraction]Ordered By: Marshall Dominguez on 07-10-2023 Hematocrit (Bld) [Volume fraction] 34.4 % 34.0-46.4 [facility] Hemoglobin [Mass/volume] in BloodOrdered By: Marshall Dominguez on 07-10-2023 Hemoglobin (Bld) [Mass/Vol] 11.0 g/dL 11.8-15.4 [facility] Hypochromia LM Ql (Bld)Order ed By: Marshall Dominguez on 07-10-2023 Hypochromia Ql (Bld) Slight [facility] INR in Platelet poor plasma by Coagulation assayOrdered By: Marshall Dominguez on 07-10-2023 INR Coag (PPP) [Relative time] 0.9 {INR} [facility] Comment on above: INR Therapeutic [...] on 07-10-2023 Ketones (U) [Mass/Vol] Negative Negative [facility] Laboratory - UrinalysisOrder ed By: Marshall Dominguez on 07-10-2023 Hyaline casts LM Ql (Urine sed) 0-8 [LPF] 0-8 [facility] Lactate [Moles/volume] in Se rum or PlasmaOrdered By: Marshall Dominguez on 07-10-2023 Lactate [Moles/Vol] 1.6 mmol/L 0.5-2.2 [facility] Leukocytes [#/volume] correc juma for nucleated erythrocytes in Blood by Automated counOrdered By: Marshall Dominguez on 07-10-2023 WBC corrected for nucl RBC Auto (Bld) [#/Vol] 21.3 10*3/uL 3.8-11.6 [facility] Lymphocytes Auto (Bld) [#/Vo l]Ordered By: Marshall Dominguez on 07-10-2023 Lymphocytes (Bld) [#/Vol] 6.7 10*3/uL 1.00-4.8 [facility] Lymphocytes/100 WBC Auto (Bl d)Ordered By: Marshall Dominguez on 07-10-2023 Lymphocytes/100 WBC (Bld) 31.5 % . [facility] MCH Auto (RBC) [Entitic mass ]Ordered By: Marshall Dominguez on 07-10-2023 MCH (RBC) [Entitic mass] 26.5 pg 24.7-34.3 [facility] MCHC Auto (RBC) [Mass/Vol]Or dered By: Marshall Dominguez on 07-10-2023 MCHC (RBC) [Mass/Vol] 32.0 g/dL 32.0-35.0 [facility] MCV Auto (RBC) [Entitic vol] Ordered By: Marshall Dominguez on 07-10-2023 MCV (RBC) [Entitic vol] 82.7 fL 80-100 [facility] Microcytes LM Ql (Bld)Ordere d By: Marshall Dominguez on 07-10-2023 Microcytes Ql (Bld) Moderate [facility] Monocytes Auto (Bld) [#/Vol] Ordered By: Marshall Dominguez on 07-10-2023 Monocytes (Bld) [#/Vol] 1.4 10*3/uL 0.0-0.8 [facility] Monocytes/100 WBC Auto (Bld) Ordered By: Marshall Dominguez on 07-10-2023 Monocytes/100 WBC (Bld) 6.5 % . [facility] Natriuretic peptide B [Mass/ Vol]Ordered By: Marshall Dominguez on 07-10-2023 Natriuretic peptide B (Bld) [Mass/Vol] 54.0 pg/mL 5-100 [facility] Neutrophils Auto (Bld) [#/Vo l]Ordered By: Marshall Dominguez on 07-10-2023 Neutrophils (Bld) [#/Vol] 13.1 10*3/uL 1.8-7.7 [facility] Neutrophils/100 WBC Auto (Bl d)Ordered By: Marshall Dominguez on 07-10-2023 Neutrophils/100 WBC (Bld) 61.4 % . [facility] Nitrite Test strip Ql (U)Ord ered By: Marshall Dominguez on 07-10-2023 Nitrite Ql (U) Positive Negative [facility] No Panel InformationOrdered By: Marshall Dominguez on 07-10-2023 Estimated GFR (CKD-EPI) 34.030 mL/Min [facility] Creatinine Clearance (Chem N/A [facility] Nucleated erythrocytes [Pres ence] in Blood by Automated countOrdered By: Marshall Dominguez on 07-10-2023 Nucleated RBC Auto Ql (Bld) 0.1 /100{WBC} 0-0.5 [facility] Ovalocyte detectionOrdered B y: Marshall Dominguez on 07-10-2023 Ovalocytes LM Ql (Bld) Slight [facility] Platelet adequacy [Presence] in Blood by Light microscopyOrdered By: Marshall Dominguez on 07-10-2023 Platelets LM Ql (Bld) Normal Normal [facility] Platelet mean volume Auto (B ld) [Entitic vol]Ordered By: Marshall Dominguez on 07-10-2023 Platelet mean volume (Bld) [Entitic vol] 8.0 fL 6.3-10.7 [facility] Platelet morphology finding [Identifier] in BloodOrdered By: Marshall Dominguez on 07-10-2023 Platelet morphology finding Nom (Bld) N/A [facility] Platelets Auto (Bld) [#/Vol] Ordered By: Marshall Dominguez on 07-10-2023 Platelets (Bld) [#/Vol] 250 10*3/uL 150-450 [facility] Poikilocytosis [Presence] in Blood by Light microscopyOrdered By: Marshall Dominguez on 07-10-2023 Poikilocytosis LM Ql (Bld) Slight [facility] Polychromasia [Presence] in Blood by Light microscopyOrdered By: Marshall Dominguez on 07-10-2023 Polychromasia LM Ql (Bld) Slight [facility] Potassium [Moles/volume] in Serum or PlasmaOrdered By: Marshall Dominguez on 07-10-2023 Potassium [Moles/Vol] 3.9 mmol/L 3.5-5.1 [facility] Protein Auto test strip (U) [Mass/Vol]Ordered By: Marshall Dominguez on 07-10-2023 Protein (U) [Mass/Vol] 30 mg/dL Negative Fi [facility] Prothrombin time (PT)Ordered By: Marshall Dominguez on 07-10-2023 PT Coag (PPP) [Time] 10.6 s 9.0-12.9 [facility] Comment on above: A hematocrit value g reater than 55% may lead to inaccurate results in coagulation testing. Patients having hematocrit values >55% require a special collection tube for coagulation studies. Please contact the laboratory at [phone] for redraw instructions. RBC Auto (Bld) [#/Vol]Ordere d By: Marshall Dominguez on 07-10-2023 RBC (Bld) [#/Vol] 4.17 10*6/uL 3.60-5.00 [facility] RBC morphologyOrdered By: Ruslan Dominguez on 07-10-2023 RBC morphology finding Nom (Bld) N/A [facility] Serum or plasma anion gap de terminationOrdered By: Marshall Dominguez on 07-10-2023 Anion gap [Moles/Vol] 9.5 mmol/L 6.0-15.0 [facility] Sodium [Moles/volume] in Ser um or PlasmaOrdered By: Marshall Dominguez on 07-10-2023 Sodium [Moles/Vol] 143 mmol/L 136-145 [facility] Specific gravity Auto test s trip (U) [Rel density]Ordered By: Marshall Dominguez on 07-10-2023 Specific gravity (U) [Rel density] 1.022 1.001-1.03 0 [facility] Squamous epithelial cells de tection in urine sediment by light microscopyOrdered By: Marshall Dominguez on 07-10-2023 Epithelial cells.squamous LM Ql (Urine sed) 1-2 [HPF] 0-2 [facility] Teardrop cell detectionOrder ed By: Marshall Dominguez on 07-10-2023 Dacrocytes LM Ql (Bld) [facility] Trop[facility] I.cardiac [Mass/vol ume] in Serum or Plasma by Detection limit <= 0.01 ng/Ordered By: Marshall Dominguez on 07-10-2023 Troponin I.cardiac DL <= 0.01 ng/mL [Mass/Vol] 11.7 pg/mL 0.0-15.0 [facility] Urea nitrogen [Mass/volume] in Serum or PlasmaOrdered By: Marshall Dominguez on 07-10-2023 Urea nitrogen [Mass/Vol] 36 mg/dL 7-25 [facility] Urine bacteria detection by automated methodOrdered By: Marshall Dominguez on 07-10-2023 Bacteria Auto Ql (U) 2+ None Seen [facility] Urine clarity by refractomet ry automatedOrdered By: Marshall Dominguez on 07-10-2023 Clarity Refractometry automated (U) Cloudy Clear [facility] Urine culture routineOrdered By: Marshall Dominguez on 07-10-2023 Bacteria identified Cx Nom (U) Proteus mirabilis [facility] Urine glucose measurement by automated test strip (mass/volume)Ordered By: Marshall Dominguez on 07-10-2023 Glucose Auto test strip (U) [Mass/Vol] Normal mg/dL Normal [facility] Urine hemoglobin detection b y automated test stripOrdered By: Marshall Dominguez on 07-10-2023 Hemoglobin Auto test strip Ql (U) Negative Negative [facility] Urine leukocyte esterase det ection by automated test stripOrdered By: Marshall Dominguez on 07-10-2023 Leukocyte esterase Auto test strip Ql (U) 4+ Negative [facility] Urobilinogen Auto test strip (U) [Mass/Vol]Ordered By: Marshall Dominguez on 07-10-2023 Urobilinogen (U) [Mass/Vol] Normal mg/dL Normal [facility] WBC Auto (Bld) [#/Vol]Ordere d By: Marshall Dominguez on 07-10-2023 WBC (Bld) [#/Vol] 21.3 10*3/uL 3.8-11.6 [facility] pH Auto test strip (U)Ordere d By: Marshall Dominguez on 07-10-2023 pH (U) 8.5 [pH] 5.0-9.0 [facility] Alanine aminotransferase [En zymatic activity/volume] in Serum or PlasmaOrdered By: Kadie Hungimore on 06-17-2023 ALT [Catalytic activity/Vol] 14 U/L 7-52 [facility] Albumin [Mass/volume] in Ser um or Plasma by Bromocresol green (BCG) dye binding methoOrdered By: Kadie Bullimore on 06-17-2023 Albumin BCG dye [Mass/Vol] 3.4 g/dL 3.5-5.7 [facility] Alkaline phosphatase [Enzyma tic activity/volume] in Serum or PlasmaOrdered By: Kadie Bullimore on 06-17-2023 ALP [Catalytic activity/Vol] 48 U/L 34-104 [facility] Aspartate aminotransferase [ Enzymatic activity/volume] in Serum or PlasmaOrdered By: Kadie Bullimore on 06-17-2023 AST [Catalytic activity/Vol] 15 U/L 13-39 [facility] Basophils Auto (Bld) [#/Vol] Ordered By: Kadie Bullimore on 06-17-2023 Basophils (Bld) [#/Vol] 0.1 10*3/uL 0.0-0.2 [facility] Basophils/100 WBC Auto (Bld) Ordered By: Kadie Bullimore on 06-17-2023 Basophils/100 WBC (Bld) 0.3 % . [facility] Bilirubin.total [Mass/volume ] in Serum or PlasmaOrdered By: Kadie Bullimore on 06-17-2023 Bilirubin [Mass/Vol] 0.4 mg/dL 0.3-1.0 [facility] Calcium [Mass/volume] in Ser um or PlasmaOrdered By: Kadie Bullimore on 06-17-2023 Calcium [Mass/Vol] 9.5 mg/dL 8.6-10.3 [facility] Carbon dioxide, total [Moles /volume] in Serum or PlasmaOrdered By: Kadie Bullimore on 06-17-2023 CO2 [Moles/Vol] 34.6 mmol/L 21.0-31.0 [facility] Chloride [Moles/volume] in S kaveh or PlasmaOrdered By: Kadie Hungimore on 06-17-2023 Chloride [Moles/Vol] 104 mmol/L 98-107 [facility] Creatinine [Mass/volume] in Serum or PlasmaOrdered By: Kadie Bullimore on 06-17-2023 Creatinine [Mass/Vol] 1.24 mg/dL 0.60-1.20 [facility] Eosinophils Auto (Bld) [#/Vo l]Ordered By: Kadie Hustonore on 06-17-2023 Eosinophils (Bld) [#/Vol] 0.0 10*3/uL 0.0-0.45 [facility] Eosinophils/100 WBC Auto (Bl d)Ordered By: Kadieruslan Hustonore on 06-17-2023 Eosinophils/100 WBC (Bld) 0.2 % . [facility] Erythrocyte distribution wid th Auto (RBC) [Ratio]Ordered By: Kadieruslan Jones on 06-17-2023 Erythrocyte distribution width (RBC) [Ratio] 21.5 % 11.9-15.3 [facility] Globulin Calc (S) [Mass/Vol] Ordered By: Kadieruslan Jones on 06-17-2023 Globulin (S) [Mass/Vol] 2.9 g/dL [facility] Glucose [Mass/volume] in Ser um or PlasmaOrdered By: Kadie Jones on 06-17-2023 Glucose [Mass/Vol] 103 mg/dL 70-100 [facility] Comment on above: ADA recommended refe rence rangeRandom Glucose Reference Range is dependent on time and content of last meal. Glucose of more than 200 mg/dL in a nonstressed, ambulatory subject supports the diagnosis of Diabetes Mellitus. Hematocrit Auto (Bld) [Volum e fraction]Ordered By: Kadie Jones on 06-17-2023 Hematocrit (Bld) [Volume fraction] 34.6 % 34.0-46.4 [facility] Hemoglobin [Mass/volume] in BloodOrdered By: Kadie Jones on 06-17-2023 Hemoglobin (Bld) [Mass/Vol] 10.9 g/dL 11.8-15.4 [facility] Leukocytes [#/volume] correc juma for nucleated erythrocytes in Blood by Automated counOrdered By: Kadie Hustonore on 06-17-2023 WBC corrected for nucl RBC Auto (Bld) [#/Vol] 17.4 10*3/uL 3.8-11.6 [facility] Lymphocytes Auto (Bld) [#/Vo l]Ordered By: Kadie Bullimore on 06-17-2023 Lymphocytes (Bld) [#/Vol] 3.7 10*3/uL 1.00-4.8 [facility] Lymphocytes/100 WBC Auto (Bl d)Ordered By: Kadie Bullimore on 06-17-2023 Lymphocytes/100 WBC (Bld) 21.2 % . [facility] MCH Auto (RBC) [Entitic mass ]Ordered By: Kadie Hungimore on 06-17-2023 MCH (RBC) [Entitic mass] 24.8 pg 24.7-34.3 [facility] MCHC Auto (RBC) [Mass/Vol]Or dered By: Kadie Bullimore on 06-17-2023 MCHC (RBC) [Mass/Vol] 31.5 g/dL 32.0-35.0 [facility] MCV Auto (RBC) [Entitic vol] Ordered By: Kadie Hungimore on 06-17-2023 MCV (RBC) [Entitic vol] 78.7 fL 80-100 [facility] Monocyte distribution width [Entitic volume] in Blood by AutomatedOrdered By: Kadie Hungimore on 06-17-2023 Monocyte distribution width Auto (Bld) [Entitic vol] 20.88 % 0.00-20.00 [facility] Comment on above: For adults in ED, MD W > 20.0 may be associated with a higher risk of sepsis during the first 12 hrs of hospital admission Monocytes Auto (Bld) [#/Vol] Ordered By: Kadie Hungimore on 06-17-2023 Monocytes (Bld) [#/Vol] 1.1 10*3/uL 0.0-0.8 [facility] Monocytes/100 WBC Auto (Bld) Ordered By: Kadie Bullimore on 06-17-2023 Monocytes/100 WBC (Bld) 6.6 % . [facility] Natriuretic peptide B [Mass/ Vol]Ordered By: Kadie Bullimore on 06-17-2023 Natriuretic peptide B (Bld) [Mass/Vol] 109.0 pg/mL 5-100 [facility] Neutrophils Auto (Bld) [#/Vo l]Ordered By: Kadie Bullimore on 06-17-2023 Neutrophils (Bld) [#/Vol] 12.4 10*3/uL 1.8-7.7 [facility] Neutrophils/100 WBC Auto (Bl d)Ordered By: Kadie Hungimore on 06-17-2023 Neutrophils/100 WBC (Bld) 71.7 % . [facility] No Panel InformationOrdered By: Kadie Jones on 06-17-2023 Estimated GFR (CKD-EPI) 44.823 mL/Min [facility] Creatinine Clearance (Chem 35.64 [facility] Nucleated erythrocytes [Pres ence] in Blood by Automated countOrdered By: Kadie Hungimore on 06-17-2023 Nucleated RBC Auto Ql (Bld) 0.1 /100{WBC} 0-0.5 [facility] Platelet mean volume Auto (B ld) [Entitic vol]Ordered By: Kadie Bullimore on 06-17-2023 Platelet mean volume (Bld) [Entitic vol] 7.4 fL 6.3-10.7 [facility] Platelets Auto (Bld) [#/Vol] Ordered By: Kadie Bullimore on 06-17-2023 Platelets (Bld) [#/Vol] 257 10*3/uL 150-450 [facility] [facility] Potassium [Moles/volume] in Serum or PlasmaOrdered By: Kadie Hungimore on 06-17-2023 Potassium [Moles/Vol] 3.7 mmol/L 3.5-5.1 [facility] Protein [Mass/volume] in Ser um or PlasmaOrdered By: Kadie Bullimore on 06-17-2023 Protein [Mass/Vol] 6.3 g/dL 6.4-8.9 [facility] RBC Auto (Bld) [#/Vol]Ordere d By: Kadie Bullimore on 06-17-2023 RBC (Bld) [#/Vol] 4.39 10*6/uL 3.60-5.00 [facility] Serum or plasma albumin/glob ulin mass ratioOrdered By: Kadie Hungimore on 06-17-2023 Albumin/Globulin [Mass ratio] 1.2 {ratio} [facility] Serum or plasma anion gap de terminationOrdered By: Kadie Bullimore on 06-17-2023 Anion gap [Moles/Vol] 8.1 mmol/L 6.0-15.0 [facility] Sodium [Moles/volume] in Ser um or PlasmaOrdered By: Kadie Bullimore on 06-17-2023 Sodium [Moles/Vol] 143 mmol/L 136-145 [facility] Troponin I.cardiac [Mass/vol ume] in Serum or Plasma by Detection limit <= 0.01 ng/Ordered By: Kadie Jones on 06-17-2023 Troponin I.cardiac DL <= 0.01 ng/mL [Mass/Vol] 9.5 pg/mL 0.0-15.0 [facility] Urea nitrogen [Mass/volume] in Serum or PlasmaOrdered By: Kadie Bullimore on 06-17-2023 Urea nitrogen [Mass/Vol] 25 mg/dL 7-25 [facility] WBC Auto (Bld) [#/Vol]Ordere d By: Kadie Bullimore on 06-17-2023 WBC (Bld) [#/Vol] 17.4 10*3/uL 3.8-11.6 [facility] Anisocytosis LM Ql (Bld)Orde red By: Carla Hagan on 12-31-2022 Anisocytosis Ql (Bld) Moderate [facility] Basophils Auto (Bld) [#/Vol] Ordered By: Carla Hagan on 12-31-2022 Basophils (Bld) [#/Vol] N/A [facility] Basophils/100 WBC Auto (Bld) Ordered By: Carla Hagan on 12-31-2022 Basophils/100 WBC (Bld) N/A [facility] Basophils/100 WBC Manual cnt (Bld)Ordered By: Carla Hagan on 12-31-2022 Basophils/100 WBC (Bld) 1 % 0-2 [facility] Calcium [Mass/volume] in Ser um or PlasmaOrdered By: Carla Hagan on 12-31-2022 Calcium [Mass/Vol] 8.6 mg/dL 8.2-10.2 [facility] Carbon dioxide, total [Moles /volume] in Serum or PlasmaOrdered By: Carla Hagan on 12-31-2022 CO2 [Moles/Vol] 26.2 mmol/L 22.0-30.0 [facility] Chloride [Moles/volume] in S kaveh or PlasmaOrdered By: Carla Hagan on 12-31-2022 Chloride [Moles/Vol] 99 mmol/L 95-114 [facility] Creatinine and Glomerular fi ltration rate.predicted panel (S/P/Bld)Ordered By: Carla Hagan on 12-31-2022 Creatinine [Mass/Vol] 0.99 mg/dL 0.44-1.03 [facility] Eosinophils Auto (Bld) [#/Vo l]Ordered By: Carla Hagan on 12-31-2022 Eosinophils (Bld) [#/Vol] N/A [facility] Eosinophils/100 WBC Auto (Bl d)Ordered By: Carla Hagan on 12-31-2022 Eosinophils/100 WBC (Bld) N/A [facility] Eosinophils/100 WBC Manual c nt (Bld)Ordered By: Carla Hagan on 12-31-2022 Eosinophils/100 WBC (Bld) 1 % 1-3 [facility] Erythrocyte distribution wid th Auto (RBC) [Ratio]Ordered By: Carla Hagan on 12-31-2022 Erythrocyte distribution width (RBC) [Ratio] 15.7 % 11.9-15.3 [facility] Estimated glomerular filtrat ion rate (GFR) non- AmericanOrdered By: Carla Hagan on 12-31-2022 GFR/1.73 sq M.predicted among non-blacks MDRD (S/P/Bld) [Vol rate/Area] 54 mL/Min [facility] Giant platelets/100 leukocyt es [Ratio] in Blood by Manual countOrdered By: Carla Hagan on 12-31-2022 Giant platelets/100 WBC Manual cnt (Bld) [Ratio] 1 /100{WBC} [facility] Glucose [Mass/volume] in Ser um or PlasmaOrdered By: Carla Hagan on 12-31-2022 Glucose [Mass/Vol] 115 mg/dL 70-100 [facility] Comment on above: ADA recommended refe rence rangeRandom Glucose Reference Range is dependent on time and content of last meal. Glucose of more than 200 mg/dL in a nonstressed, ambulatory subject supports the diagnosis of Diabetes Mellitus. Helmet cell detectionOrdered By: Carla Hagan on 12-31-2022 Helmet cells LM Ql (Bld) Slight [facility] Hematocrit Auto (Bld) [Volum e fraction]Ordered By: Carla Hagan on 12-31-2022 Hematocrit (Bld) [Volume fraction] 30.2 % 34.0-46.4 [facility] Hemoglobin [Mass/volume] in BloodOrdered By: Carla Hagan on 12-31-2022 Hemoglobin (Bld) [Mass/Vol] 9.8 g/dL 11.8-15.4 [facility] Hypochromia LM Ql (Bld)Order ed By: Carla Hagan on 12-31-2022 Hypochromia Ql (Bld) Slight [facility] Laboratory - Chemistry and C hemistry - challengeOrdered By: Carla Hagan on 12-31-2022 Magnesium [Mass/Vol] 1.5 mg/dL 1.6-2.6 [facility] Leukocytes [#/volume] correc juma for nucleated erythrocytes in Blood by Automated counOrdered By: Carla Hagan on 12-31-2022 WBC corrected for nucl RBC Auto (Bld) [#/Vol] 13.4 10*3/uL 3.8-11.6 [facility] Lymphocytes Auto (Bld) [#/Vo l]Ordered By: Carla Hagan on 12-31-2022 Lymphocytes (Bld) [#/Vol] N/A [facility] Lymphocytes/100 WBC Auto (Bl d)Ordered By: Carla Hagan on 12-31-2022 Lymphocytes/100 WBC (Bld) N/A [facility] Lymphocytes/100 WBC Manual c nt (Bld)Ordered By: Carla Hagan on 12-31-2022 Lymphocytes/100 WBC (Bld) 8 % 18-42 [facility] MCH Auto (RBC) [Entitic mass ]Ordered By: Carla Hagan on 12-31-2022 MCH (RBC) [Entitic mass] 25.3 pg 24.7-34.3 [facility] MCHC Auto (RBC) [Mass/Vol]Or dered By: Carla Hagan on 12-31-2022 MCHC (RBC) [Mass/Vol] 32.3 g/dL 32.0-35.0 [facility] MCV Auto (RBC) [Entitic vol] Ordered By: Carla Hagan on 12-31-2022 MCV (RBC) [Entitic vol] 78.2 fL 80-100 [facility] Microcytes LM Ql (Bld)Ordere d By: Carla Hagan on 12-31-2022 Microcytes Ql (Bld) Moderate [facility] Monocytes Auto (Bld) [#/Vol] Ordered By: Carla Hagan on 12-31-2022 Monocytes (Bld) [#/Vol] N/A [facility] Monocytes/100 WBC Auto (Bld) Ordered By: Carla Hagan on 12-31-2022 Monocytes/100 WBC (Bld) N/A [facility] Monocytes/100 WBC Manual cnt (Bld)Ordered By: Carla Hagan on 12-31-2022 Monocytes/100 WBC (Bld) 5 % 2-11 [facility] Neutrophils Auto (Bld) [#/Vo l]Ordered By: Carla Hagan on 12-31-2022 Neutrophils (Bld) [#/Vol] N/A [facility] Neutrophils/100 WBC Auto (Bl d)Ordered By: Carla Hagan on 12-31-2022 Neutrophils/100 WBC (Bld) N/A [facility] No Panel InformationOrdered By: Carla Hagan on 12-31-2022 Estimated GFR () > 60 mL/Min [facility] Comment on above: GFR estimated refere nce range: According to KDOQI guidelines, <60 ml/min/1.73m2 is sufficient to diagnose a patient with chronic kidney disease. Pharmacy Creatinine Clearance (Chem 45.60 [facility] Nucleated erythrocytes [Pres ence] in Blood by Automated countOrdered By: Carla Hagan on 12-31-2022 Nucleated RBC Auto Ql (Bld) N/A [facility] Phosphate [Mass/volume] in S kaveh or PlasmaOrdered By: Carla Hagan on 12-31-2022 Phosphate [Mass/Vol] 3.5 mg/dL 2.5-4.6 [facility] Platelet adequacy [Presence] in Blood by Light microscopyOrdered By: Carla Hagan on 12-31-2022 Platelets LM Ql (Bld) Normal Normal [facility] Platelet mean volume Auto (B ld) [Entitic vol]Ordered By: Carla Hagan on 12-31-2022 Platelet mean volume (Bld) [Entitic vol] 6.6 fL 6.3-10.7 [facility] Platelet morphology finding [Identifier] in BloodOrdered By: Carla Hagan on 12-31-2022 Platelet morphology finding Nom (Bld) Normal Normal [facility] Platelets Auto (Bld) [#/Vol] Ordered By: Carla Hagan on 12-31-2022 Platelets (Bld) [#/Vol] 447 10*3/uL 150-450 [facility] Poikilocytosis [Presence] in Blood by Light microscopyOrdered By: Carla Hagan on 12-31-2022 Poikilocytosis LM Ql (Bld) Slight [facility] Polychromasia [Presence] in Blood by Light microscopyOrdered By: Carla Hagan on 12-31-2022 Polychromasia LM Ql (Bld) Slight [facility] Potassium [Moles/volume] in Serum or PlasmaOrdered By: Carla Hagan on 12-31-2022 Potassium [Moles/Vol] 4.1 mmol/L 3.5-5.1 [facility] RBC Auto (Bld) [#/Vol]Ordere d By: Carla Hagan on 12-31-2022 RBC (Bld) [#/Vol] 3.86 10*6/uL 3.60-5.00 [facility] RBC morphologyOrdered By: Ra carey Hagan on 12-31-2022 RBC morphology finding Nom (Bld) N/A [facility] Segmented neutrophils/100 WB C Manual cnt (Bld)Ordered By: Carla Hagan on 12-31-2022 Segmented neutrophils/100 WBC (Bld) 86 % 50-70 [facility] Serum or plasma anion gap de terminationOrdered By: Carla Hagan on 12-31-2022 Anion gap [Moles/Vol] 12.9 mmol/L 6.0-15.0 [facility] Sodium [Moles/volume] in Ser um or PlasmaOrdered By: Carla Hagan on 12-31-2022 Sodium [Moles/Vol] 134 mmol/L 136-146 [facility] Urea nitrogen [Mass/volume] in Serum or PlasmaOrdered By: Carla Hagan on 12-31-2022 Urea nitrogen [Mass/Vol] 18 mg/dL 9-23 [facility] WBC Auto (Bld) [#/Vol]Ordere d By: Carla Hagan on 12-31-2022 WBC (Bld) [#/Vol] 13.4 10*3/uL 3.8-11.6 [facility] Creatine kinase [Enzymatic a ctivity/volume] in Serum or PlasmaOrdered By: Carla Hagan on 12-28-2022 CK [Catalytic activity/Vol] 108 U/L 22-269 [facility] Automated epithelial cells c ount in urine sediment (number/area)Ordered By: Maddy Morrissey on 12-27-2022 Epithelial cells Auto (Urine sed) [#/Area] 3-4 [HPF] 0-2 [facility] Automated erythrocytes count in urine sediment (number/area)Ordered By: Maddy Morrissey on 12-27-2022 RBC Auto (Urine sed) [#/Area] 0-1 [HPF] 0-4 [facility] Automated leukocytes count i n urine sediment (number/area)Ordered By: Maddy Morrissey on 12-27-2022 WBC Auto (Urine sed) [#/Area] 5-9 [HPF] 0-4 [facility] Bilirubin Test strip Ql (U)O rdered By: Maddy Morrissey on 12-27-2022 Bilirubin Ql (U) Negative Negative [facility] Color Auto (U)Ordered By: Corwin Morrissey on 12-27-2022 Color (U) Yellow Yellow [facility] Folate [Mass/volume] in Seru m or PlasmaOrdered By: Eve Mann on 12-27-2022 Folate [Mass/Vol] ng/mL >5.9 [facility] Comment on above: Folate reference ran ge: >5.9 ng/mlThe WHO technical consultation on folate and vitamin [id number] has determined that folate concentrations lessthan 4 ng/ml are considered deficient. Ketones Auto test strip (U) [Mass/Vol]Ordered By: Maddy Morrissey on 12-27-2022 Ketones (U) [Mass/Vol] Negative Negative [facility] Laboratory - Chemistry and C hemistry - challengeOrdered By: Eve Mann on 12-27-2022 Cobalamin (Vitamin B12) [Mass/Vol] 994 pg/mL 180-914 [facility] Nitrite Test strip Ql (U)Ord ered By: Maddy Morrissey on 12-27-2022 Nitrite Ql (U) Positive Negative [facility] Protein Auto test strip (U) [Mass/Vol]Ordered By: Maddy Morrissey on 12-27-2022 Protein (U) [Mass/Vol] Trace mg/dL Negative F [facility] Specific gravity Auto test s trip (U) [Rel density]Ordered By: Maddy Morrissey on 12-27-2022 Specific gravity (U) [Rel density] > 1.050 1.001-1.03 0 [facility] Urine bacteria detection by automated methodOrdered By: Maddy Morrissey on 12-27-2022 Bacteria Auto Ql (U) 2+ None Seen [facility] Urine clarity by refractomet ry automatedOrdered By: Maddy Morrissey on 12-27-2022 Clarity Refractometry automated (U) Cloudy Clear [facility] Urine culture routineOrdered By: Maddy Morrissey on 12-27-2022 Bacteria identified Cx Nom (U) Escherichia coli [facility] Urine glucose measurement by automated test strip (mass/volume)Ordered By: Maddy Morrissey on 12-27-2022 Glucose Auto test strip (U) [Mass/Vol] Normal mg/dL Normal [facility] Urine hemoglobin detection b y automated test stripOrdered By: Maddy Morrissey on 12-27-2022 Hemoglobin Auto test strip Ql (U) Trace Negative [facility] Urine leukocyte esterase det ection by automated test stripOrdered By: Maddy Morrissey on 12-27-2022 Leukocyte esterase Auto test strip Ql (U) 3+ Negative [facility] Urobilinogen Auto test strip (U) [Mass/Vol]Ordered By: Maddy Morrissey on 12-27-2022 Urobilinogen (U) [Mass/Vol] Normal mg/dL Normal [facility] pH Auto test strip (U)Ordere d By: Maddy Morrissey on 12-27-2022 pH (U) 5.0 [pH] 5.0-9.0 [facility] Activated partial thrombopla stin time (aPTT) in platelet poor plasma by coagulation aOrdered By: Maddy Morrissey on 12-26-2022 aPTT Coag (PPP) [Time] 30.8 s 25.1-36.5 [facility] Basophils Auto (Bld) [#/Vol] Ordered By: Maddy Morrissey on 12-26-2022 Basophils (Bld) [#/Vol] 0.1 10*3/uL 0.0-0.2 [facility] Basophils/100 WBC Auto (Bld) Ordered By: Maddy Morrissey on 12-26-2022 Basophils/100 WBC (Bld) 0.5 % . [facility] Calcium [Mass/volume] in Ser um or PlasmaOrdered By: Maddy Morrissey on 12-26-2022 Calcium [Mass/Vol] 9.0 mg/dL 8.2-10.2 [facility] Carbon dioxide, total [Moles /volume] in Serum or PlasmaOrdered By: Maddy Morrissey on 12-26-2022 CO2 [Moles/Vol] 25.8 mmol/L 22.0-30.0 [facility] Chloride [Moles/volume] in S kaveh or PlasmaOrdered By: Maddy Morrissey on 12-26-2022 Chloride [Moles/Vol] 104 mmol/L 95-114 [facility] Creatinine and Glomerular fi ltration rate.predicted panel (S/P/Bld)Ordered By: Maddy Morrissey on 12-26-2022 Creatinine [Mass/Vol] 1.22 mg/dL 0.44-1.03 [facility] Eosinophils Auto (Bld) [#/Vo l]Ordered By: Maddy Morrissey on 12-26-2022 Eosinophils (Bld) [#/Vol] 0.1 10*3/uL 0.0-0.45 [facility] Eosinophils/100 WBC Auto (Bl d)Ordered By: Maddy Morrissey on 12-26-2022 Eosinophils/100 WBC (Bld) 1.1 % . [facility] Erythrocyte distribution wid th Auto (RBC) [Ratio]Ordered By: Maddy Morrissey on 12-26-2022 Erythrocyte distribution width (RBC) [Ratio] 15.9 % 11.9-15.3 [facility] Estimated glomerular filtrat ion rate (GFR) non- AmericanOrdered By: Maddy Morrissey on 12-26-2022 GFR/1.73 sq M.predicted among non-blacks MDRD (S/P/Bld) [Vol rate/Area] 43 mL/Min [facility] Glucose [Mass/volume] in Ser um or PlasmaOrdered By: Maddy Morrissey on 12-26-2022 Glucose [Mass/Vol] 128 mg/dL 70-100 [facility] Comment on above: ADA recommended refe rence rangeRandom Glucose Reference Range is dependent on time and content of last meal. Glucose of more than 200 mg/dL in a nonstressed, ambulatory subject supports the diagnosis of Diabetes Mellitus. Hematocrit Auto (Bld) [Volum e fraction]Ordered By: Maddy Morrissey on 12-26-2022 Hematocrit (Bld) [Volume fraction] 29.7 % 34.0-46.4 [facility] Hemoglobin [Mass/volume] in BloodOrdered By: Maddy Morrissey on 12-26-2022 Hemoglobin (Bld) [Mass/Vol] 9.3 g/dL 11.8-15.4 [facility] Laboratory - Chemistry and C hemistry - challengeOrdered By: Maddy Mrorissey on 12-26-2022 Natriuretic peptide B (Bld) [Mass/Vol] 49.0 pg/mL 5-100 [facility] Laboratory - CoagulationOrde red By: Maddy Morrissey on 12-26-2022 PT Coag (PPP) [Time] 14.5 s 9.0-12.9 [facility] Leukocytes [#/volume] correc juma for nucleated erythrocytes in Blood by Automated counOrdered By: Maddy Morrissey on 12-26-2022 WBC corrected for nucl RBC Auto (Bld) [#/Vol] 12.0 10*3/uL 3.8-11.6 [facility] Lymphocytes Auto (Bld) [#/Vo l]Ordered By: Maddy Morrissey on 12-26-2022 Lymphocytes (Bld) [#/Vol] 3.0 10*3/uL 1.00-4.8 [facility] Lymphocytes/100 WBC Auto (Bl d)Ordered By: Maddy Morrissey on 12-26-2022 Lymphocytes/100 WBC (Bld) 24.8 % . [facility] MCH Auto (RBC) [Entitic mass ]Ordered By: Maddy Morrissey on 12-26-2022 MCH (RBC) [Entitic mass] 24.8 pg 24.7-34.3 [facility] MCHC Auto (RBC) [Mass/Vol]Or dered By: Maddy Morrissey on 12-26-2022 MCHC (RBC) [Mass/Vol] 31.2 g/dL 32.0-35.0 [facility] MCV Auto (RBC) [Entitic vol] Ordered By: Maddy Morrissey on 12-26-2022 MCV (RBC) [Entitic vol] 79.4 fL 80-100 [facility] Monocyte distribution width [Entitic volume] in Blood by AutomatedOrdered By: Maddy Morrissey on 12-26-2022 Monocyte distribution width Auto (Bld) [Entitic vol] 20.22 % 0.00-20.00 [facility] Comment on above: For adults in ED, MD W > 20.0 may be associated with a higher risk of sepsis during the first 12 hrs of hospital admission Monocytes Auto (Bld) [#/Vol] Ordered By: Maddy Morrissey on 12-26-2022 Monocytes (Bld) [#/Vol] 1.2 10*3/uL 0.0-0.8 [facility] Monocytes/100 WBC Auto (Bld) Ordered By: Maddy Morrissey on 12-26-2022 Monocytes/100 WBC (Bld) 10.1 % . [facility] Neutrophils Auto (Bld) [#/Vo l]Ordered By: Maddy Morrissey on 12-26-2022 Neutrophils (Bld) [#/Vol] 7.6 10*3/uL 1.8-7.7 [facility] Neutrophils/100 WBC Auto (Bl d)Ordered By: Maddy Morrissey on 12-26-2022 Neutrophils/100 WBC (Bld) 63.5 % . [facility] No Panel InformationOrdered By: Maddy Morrissey on 12-26-2022 Estimated GFR () 52 mL/Min [facility] Comment on above: GFR estimated refere nce range: According to KDOQI guidelines, <60 ml/min/1.73m2 is sufficient to diagnose a patient with chronic kidney disease. Pharmacy Creatinine Clearance (Chem 37.20 [facility] Nucleated erythrocytes [Pres ence] in Blood by Automated countOrdered By: Maddy Morrissey on 12-26-2022 Nucleated RBC Auto Ql (Bld) 0.1 /100{WBC} 0-0.5 [facility] Platelet mean volume Auto (B ld) [Entitic vol]Ordered By: Maddy Morrissey on 12-26-2022 Platelet mean volume (Bld) [Entitic vol] 6.5 fL 6.3-10.7 [facility] Platelet poor plasma interna tional normalized ratio (INR) by coagulation assay (relatOrdered By: Maddy Morrissey on 12-26-2022 INR Coag (PPP) [Relative time] 1.3 {INR} [facility] Comment on above: INR Therapeutic [...] 12-26-2022 Platelets (Bld) [#/Vol] 450 10*3/uL 150-450 [facility] Potassium [Moles/volume] in Serum or PlasmaOrdered By: Maddy Morrissey on 12-26-2022 Potassium [Moles/Vol] 3.9 mmol/L 3.5-5.1 [facility] RBC Auto (Bld) [#/Vol]Ordere d By: Maddy Morrissey on 12-26-2022 RBC (Bld) [#/Vol] 3.74 10*6/uL 3.60-5.00 [facility] Serum or plasma anion gap de terminationOrdered By: Maddy Morrissey on 12-26-2022 Anion gap [Moles/Vol] 10.1 mmol/L 6.0-15.0 [facility] Sodium [Moles/volume] in Ser um or PlasmaOrdered By: Maddy Morrissey on 12-26-2022 Sodium [Moles/Vol] 136 mmol/L 136-146 [facility] Troponin I.cardiac [Mass/vol ume] in Serum or Plasma by High sensitivity methodOrdered By: Maddy Morrissey on 12-26-2022 Troponin I.cardiac High sensitivity method [Mass/Vol] 6 pg/mL 0-15 [facility] Urea nitrogen [Mass/volume] in Serum or PlasmaOrdered By: Maddy Morrissey on 12-26-2022 Urea nitrogen [Mass/Vol] 21 mg/dL 9-23 [facility] WBC Auto (Bld) [#/Vol]Ordere d By: Maddy Morrissey on 12-26-2022 WBC (Bld) [#/Vol] 12.0 10*3/uL 3.8-11.6 [facility] Basophils Auto (Bld) [#/Vol] Ordered By: Hilario Yeung on 05-31-2022 Basophils (Bld) [#/Vol] 0.0 10*3/uL 0.0-0.2 [facility] Basophils/100 WBC Auto (Bld) Ordered By: Hilario Yeung on 05-31-2022 Basophils/100 WBC (Bld) 0.7 % . [facility] Blood hemoglobin measurement (mass/volume)Ordered By: Hilario Yeung on 05-31-2022 Hemoglobin (Bld) [Mass/Vol] 11.6 g/dL 11.8-15.4 [facility] Blood leukocytes automated c ount (number/volume)Ordered By: Hilario Yeung on 05-31-2022 WBC (Bld) [#/Vol] 5.9 10*3/uL 4.5-11.0 [facility] Creatinine and Glomerular fi ltration rate.predicted panel (S/P/Bld)Ordered By: Hilario Yeung on 05-31-2022 Creatinine [Mass/Vol] 1.22 mg/dL 0.44-1.03 [facility] Eosinophils Auto (Bld) [#/Vo l]Ordered By: Hilario Yeung on 05-31-2022 Eosinophils (Bld) [#/Vol] 0.3 10*3/uL 0.0-0.45 [facility] Eosinophils/100 WBC Auto (Bl d)Ordered By: Hilario Yeung on 05-31-2022 Eosinophils/100 WBC (Bld) 4.4 % . [facility] Erythrocyte distribution wid th Auto (RBC) [Ratio]Ordered By: Hilario Yeung on 05-31-2022 Erythrocyte distribution width (RBC) [Ratio] 16.9 % 11.9-15.3 [facility] Estimated glomerular filtrat ion rate (GFR) non- AmericanOrdered By: Hilario Yeung on 05-31-2022 GFR/1.73 sq M.predicted among non-blacks MDRD (S/P/Bld) [Vol rate/Area] 43 mL/Min [facility] Hematocrit Auto (Bld) [Volum e fraction]Ordered By: Hilario Yeung on 05-31-2022 Hematocrit (Bld) [Volume fraction] 36.6 % 34.0-46.4 [facility] Laboratory - Hematology and Cell countsOrdered By: Hilario Yeung on 05-31-2022 Nucleated RBC/100 WBC (Bld) [Ratio] 0.1 % 0-0.5 [facility] Lymphocytes Auto (Bld) [#/Vo l]Ordered By: Hilario Yeung on 05-31-2022 Lymphocytes (Bld) [#/Vol] 2.4 10*3/uL 1.00-4.8 [facility] Lymphocytes/100 WBC Auto (Bl d)Ordered By: Hilario Yeung on 05-31-2022 Lymphocytes/100 WBC (Bld) 41.3 % . [facility] MCH Auto (RBC) [Entitic mass ]Ordered By: Hilario Yeung on 05-31-2022 MCH (RBC) [Entitic mass] 25.8 pg 24.7-34.3 [facility] MCHC Auto (RBC) [Mass/Vol]Or dered By: Hilario Yeung on 05-31-2022 MCHC (RBC) [Mass/Vol] 31.7 g/dL 32.0-35.0 [facility] MCV Auto (RBC) [Entitic vol] Ordered By: Hilario Yeung on 05-31-2022 MCV (RBC) [Entitic vol] 81.4 fL 80-100 [facility] Monocytes Auto (Bld) [#/Vol] Ordered By: Hilario Yeung on 05-31-2022 Monocytes (Bld) [#/Vol] 0.6 10*3/uL 0.0-0.8 [facility] Monocytes/100 WBC Auto (Bld) Ordered By: Hilario Yeung on 05-31-2022 Monocytes/100 WBC (Bld) 10.6 % . [facility] Neutrophils Auto (Bld) [#/Vo l]Ordered By: Hilario Yeung on 05-31-2022 Neutrophils (Bld) [#/Vol] 2.5 10*3/uL 1.8-7.7 [facility] Neutrophils/100 WBC Auto (Bl d)Ordered By: Hilario Yeung on 05-31-2022 Neutrophils/100 WBC (Bld) 43.0 % . [facility] No Panel InformationOrdered By: Hilario Yeung on 05-31-2022 Estimated GFR () 52 mL/Min [facility] Comment on above: GFR estimated refere nce range: According to KDOQI guidelines, <60 ml/min/1.73m2 is sufficient to diagnose a patient with chronic kidney disease. Pharmacy Creatinine Clearance (Chem 39.11 [facility] Platelet mean volume Auto (B ld) [Entitic vol]Ordered By: Hilario Yeung on 05-31-2022 Platelet mean volume (Bld) [Entitic vol] 7.5 fL 6.3-10.7 [facility] Platelets Auto (Bld) [#/Vol] Ordered By: Hilario Yeung on 05-31-2022 Platelets (Bld) [#/Vol] 209 10*3/uL 150-450 [facility] RBC Auto (Bld) [#/Vol]Ordere d By: Hilario Yeung on 05-31-2022 RBC (Bld) [#/Vol] 4.50 10*6/uL 3.60-5.00 [facility] Serum or plasma calcium roly urement (mass/volume)Ordered By: Hilario Yeung on 05-31-2022 Calcium [Mass/Vol] 9.1 mg/dL 8.2-10.2 [facility] Serum or plasma chloride deirdre surement (moles/volume)Ordered By: Hilario Yeung on 05-31-2022 Chloride [Moles/Vol] 100 mmol/L 95-114 [facility] Serum or plasma glucose roly urement (mass/volume)Ordered By: Hilario Yeung on 05-31-2022 Glucose [Mass/Vol] 99 mg/dL 70-100 [facility] Comment on above: ADA recommended refe rence range Random Glucose Reference Range is dependent on time and content of last meal. Glucose of more than 200 mg/dL in a nonstressed, ambulatory subject supports the diagnosis of Diabetes Mellitus. Serum or plasma potassium me asurement (moles/volume)Ordered By: Hilario Yeung on 05-31-2022 Potassium [Moles/Vol] 4.2 mmol/L 3.5-5.1 [facility] Serum or plasma sodium measu rement (moles/volume)Ordered By: Hilario Gamal on 05-31-2022 Sodium [Moles/Vol] 138 mmol/L 136-146 [facility] Serum or plasma total carbon dioxide measurement (moles/volume)Ordered By: Hilario Gamal on 05-31-2022 CO2 [Moles/Vol] 29.7 mmol/L 22.0-30.0 [facility] Serum or plasma urea nitroge n measurement (mass/volume)Ordered By: Hilario Gamal on 05-31-2022 Urea nitrogen [Mass/Vol] 13 mg/dL 9- [facility] SCREENING MAMMOGRAM W/LELAND, BILATERAL*on 04-27-2022 SCREENING MAMMOGRAM W/LELAND, BILATERAL* CLINICAL HISTORY: Screening Mammogram COMPARISON: Priors dating back to 2015 TECHNIQUE: 2D and 3D mammogram imaging of both breasts was performed. RESULT: DENSITY: There are scattered areas of fibroglandular density. There is no suspicious mass, asymmetry, architectural distortion, or calcification. No significant change since the prior mammograms. IMPRESSION: BIRADS 1 : NEGATIVE, NORMAL INTERVAL FOLLOW UP FOLLOW-UP: 12 months DENSITY: Scattered MAMMOGRAPHY IS VERY IMPORTANT TO YOUR HEALTH. THE CURRENT [place] [employer] GUIDELINES RECOMMENDS ANNUAL MAMMOGRAPHY BEGINNING AT AGE 40 THIS FACILITY USES A REMINDER SYSTEM TO ENSURE ALL PATIENTS RECEIVE REMINDER NOTIFICATIONS AT THE APPROPRIATE TIME BASED ON THE RECOMMENDATIONS OF THIS EXAM. Board Certified Radiologist. Accredited by the ACR and FDA. Report reported and signed by Edgar Hooper on 05/01/2022 0[address] [facility] CT Low Dose Lung Screeningon 04-26-2022 CT [...] by Devonte Gomez on 04/27/2022 1239 Normal [facility] XR Hip Complete Left*on 02-25 XR Hip [...] by Wicho Bowman on 03/14/2022 1550 Normal [facility] XR Spine Lumbar 4+ Views*on 03-14-2022 XR [...] by Wicho Bowman on 03/14/[address] 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 12-20-2020 [facility] Patient Outreach ([facility]) -- GERA PERDUE ([id number]) 1945 F Date Time Provider Department 12/20/20 DERICK LOPEZ During your visit today, we recorded the following information about you: Allergies As of Date: 12/20/2020 Noted Allergy Reaction ASPRIN (ASPIRIN) 03/02/2019 1 - Mental Status Change Date Reviewed: 05/04/2020 Reviewed by: Prasad Phillips - Fully Assessed Order(s):SARS-COVID VACCINE 1ST DOSE APPT [[id number]] Order #: [id number] FUTURE Prescriptions as of 12/20/2020 Sig: HYDROCODONE [...] Status:Closed by HERNÁN GALEANOUSER on 12/23/20 Normal [facility] PROGRESSon 05-03-2020 PROGRESS HNO ID: [id number] Author: Prasad Phillips Service: ? Author Type: Physician Type: Progress Notes Filed: 05/04/2020 8:19 PM Note Text: Gera Perdue : 1945 M[facility]: [facility] PCP: guanako Date last seen: [...] foot Prasad Phillips DPM Normal [facility] CBC Auto Differentialon 10-0 Basophils (Bld) [#/Vol] 0.03 10*3/uL [place] Basophils/100 WBC (Bld) 0 % 0 - 2 % [place] Differential Type NOT REPORTED [place] Eosinophils (Bld) [#/Vol] 0.14 10*3/uL [place] Eosinophils/100 WBC (Bld) 2 % 1 - 4 % [place] Erythrocyte distribution width (RBC) [Ratio] 15.0 % High 11.8 - 14.4 % [place] Hematocrit (Bld) [Volume fraction] 32.7 % Low 36.3 - 47.1 % [place] Hemoglobin (Bld) [Mass/Vol] 9.9 g/dL Low 11.9 - 15.1 g/dL [place] Immature granulocytes (Bld) [#/Vol] 0.03 10*3/uL [place] Immature granulocytes (Bld) [#/Vol] 0 % 0 [place] Interpretation and review of laboratory results Abnormal [place] Lymphocytes (Bld) [#/Vol] 1.67 10*3/uL [place] Lymphocytes/100 WBC (Bld) 22 % Low 24 - 43 % [place] MCH (RBC) [Entitic mass] 27.7 pg 25.2 - 33.5 pg [place] MCHC (RBC) [Mass/Vol] 30.3 g/dL 28.4 - 34.8 g/dL [place] MCV (RBC) [Entitic vol] 91.3 fL 82.6 - 102.9 fL [place] Monocytes (Bld) [#/Vol] 1.00 10*3/uL [place] Monocytes/100 WBC (Bld) 13 % High 3 - 12 % [place] Platelet mean volume (Bld) [Entitic vol] 9.1 fL 8.1 - 13.5 fL [place] Platelets (Bld) [#/Vol] 184 10*3/uL [place] Platelets (Bld) [#/Vol] NOT REPORTED [place] RBC (Bld) [#/Vol] 3.58 10*6/uL Low 3.95 - 5.11 m/uL [place] RBC morphology finding Nom (Bld) ANISOCYTOSIS PRESENT [place] Segmented neutrophils/100 WBC (Bld) 63 % 36 - 65 % [place] Segs Absolute 4.63 [place] WBC (Bld) [#/Vol] 7.5 10*3/uL [place] WBC (Bld) [#/Vol] 0.0 10*3/uL 0.0 per 100 WBC [place] WBC Morphology NOT REPORTED [place] CBC with Diffon 08-04-2019 Abs. Basophil 0.03 k/uL Normal 0.00-0.20 [facility] Comment on above: Performed By: #### C DP #### [address] [address] Printing Worker Supervisor: Juan Perera MD Abs.Imm.Granulocyte 0.03 k/uL Normal 0.00-0.30 [facility] Comment on above: Performed By: #### C DP #### [address] [address] Printing Worker Supervisor: Juan Perera MD Abs.Neutrophil (Seg) 4.63 k/uL Normal 1.50-8.10 [facility] Comment on above: Performed By: #### C DP #### [address] [address] Printing Worker Supervisor: Juan Perera MD Basophils/100 WBC (Bld) 0 % Normal 0-2 [facility] Comment on above: Performed By: #### C DP #### [address] [address] Printing Worker Supervisor: Juan Perera MD Eosinophils (Bld) [#/Vol] 0.14 10*3/uL Normal 0.00-0.44 [facility] Comment on above: Performed By: #### C DP #### [address] [address] Printing Worker Supervisor: Juan Perera MD Eosinophils/100 WBC (Bld) 2 % Normal 1-4 [facility] Comment on above: Performed By: #### C DP #### [address] [address] Printing Worker Supervisor: Juan Perera MD Erythrocyte distribution width (RBC) [Ratio] 15.0 % High 11.8-14.4 [facility] Comment on above: Performed By: #### C DP #### [address] [address] Printing Worker Supervisor: Juan Perera MD Hematocrit (Bld) [Volume fraction] 32.7 % Low 36.3-47.1 [facility] Comment on above: Performed By: #### C DP #### [address] [address] Printing Worker Supervisor: Juan Perera MD Hemoglobin (Bld) [Mass/Vol] 9.9 g/dL Low 11.9-15.1 [facility] Comment on above: Performed By: #### C DP #### [address] [address] Printing Worker Supervisor: Juan Perera MD Immature granulocytes (Bld) [#/Vol] 0 % Normal 0 [facility] Comment on above: Performed By: #### C DP #### [address] [address] Printing Worker Supervisor: Juan Perera MD Lymphocytes (Bld) [#/Vol] 1.67 10*3/uL Normal 1.10-3.70 [facility] Comment on above: Performed By: #### C DP #### [address] [address] Printing Worker Supervisor: Juan Perera MD Lymphocytes/100 WBC (Bld) 22 % Low 24-43 [facility] Comment on above: Performed By: #### C DP #### [address] [address] Printing Worker Supervisor: Juan Perera MD MCH (RBC) [Entitic mass] 27.7 pg Normal 25.2-33.5 [facility] Comment on above: Performed By: #### C DP #### [address] [address] Printing Worker Supervisor: Juan Perera MD MCHC (RBC) [Mass/Vol] 30.3 g/dL Normal 28.4-34.8 [facility] Comment on above: Performed By: #### C DP #### [address] [address] Printing Worker Supervisor: Juan Perera MD MCV (RBC) [Entitic vol] 91.3 fL Normal 82.6-102.9 [facility] Comment on above: Performed By: #### C DP #### [address] [address] Printing Worker Supervisor: Juan Perera MD Monocytes (Bld) [#/Vol] 1.00 10*3/uL Normal 0.10-1.20 [facility] Comment on above: Performed By: #### C DP #### [address] [address] Printing Worker Supervisor: Juan Perera MD Monocytes/100 WBC (Bld) 13 % High 3-12 [facility] Comment on above: Performed By: #### C DP #### [address] [address] Printing Worker Supervisor: Juan Perera MD Neutrophil (Seg) 63 % Normal 36-65 [facility] Comment on above: Performed By: #### C DP #### [address] [address] Printing Worker Supervisor: Juan Perera MD NRBC Automated 0.0 per 100 WBC Normal 0.0 [facility] Comment on above: Performed By: #### C DP #### [address] [address] Printing Worker Supervisor: Juan Perera MD Platelet mean volume (Bld) [Entitic vol] 9.1 fL Normal 8.1-13.5 [facility] Comment on above: Performed By: #### C DP #### [address] [address] Printing Worker Supervisor: Juan Perera MD Platelets (Bld) [#/Vol] 184 10*3/uL Normal 138-453 [facility] Comment on above: Performed By: #### C DP #### [address] [address] Printing Worker Supervisor: Juan Perera MD RBC (Bld) [#/Vol] 3.58 10*6/uL Low 3.95-5.11 [facility] Comment on above: Performed By: #### C DP #### [address] [address] Printing Worker Supervisor: Juan Perera MD RBC morphology finding Nom (Bld) ANISOCYTOSIS PRESENT Normal [facility] Comment on above: Performed By: #### C DP #### [address] [address] Printing Worker Supervisor: Juan Perera MD WBC (Bld) [#/Vol] 7.5 10*3/uL Normal 3.5-11.3 [facility] Comment on above: Performed By: #### C DP #### [address] [address] Printing Worker Supervisor: Juan Perera MD Auto Diff Performed NOT REPORTED Normal [facility] Comment on above: Performed By: #### C DP #### [address] [address] Printing Worker Supervisor: Juan Perera MD Platelets (Bld) [#/Vol] NOT REPORTED Normal [facility] Comment on above: Performed By: #### C DP #### [address] [place] [address] Printing Worker Supervisor: Juan Perera MD WBC Morphology NOT REPORTED Normal [facility] Comment on above: Performed By: #### C DP #### [facility] [address] [place] [address] Printing Worker Supervisor: Juan Perera MD CBC Auto Differentialon 100 Basophils (Bld) [#/Vol] 0.04 10*3/uL [place] Basophils/100 WBC (Bld) 1 % 0 - 2 % [place] Differential Type NOT REPORTED [place] Eosinophils (Bld) [#/Vol] 0.19 10*3/uL [place] Eosinophils/100 WBC (Bld) 2 % 1 - 4 % [place] Erythrocyte distribution width (RBC) [Ratio] 15.5 % High 11.8 - 14.4 % [place] Hematocrit (Bld) [Volume fraction] 37.6 % 36.3 - 47.1 % [place] Hemoglobin (Bld) [Mass/Vol] 11.4 g/dL Low 11.9 - 15.1 g/dL [place] Immature granulocytes (Bld) [#/Vol] 10*3/uL [place] Immature granulocytes (Bld) [#/Vol] 0 % 0 [place] Interpretation and review of laboratory results Abnormal [place] Lymphocytes (Bld) [#/Vol] 1.70 10*3/uL [place] Lymphocytes/100 WBC (Bld) 22 % Low 24 - 43 % [place] MCH (RBC) [Entitic mass] 27.8 pg 25.2 - 33.5 pg [place] MCHC (RBC) [Mass/Vol] 30.3 g/dL 28.4 - 34.8 g/dL [place] MCV (RBC) [Entitic vol] 91.7 fL 82.6 - 102.9 fL [place] Monocytes (Bld) [#/Vol] 0.92 10*3/uL [place] Monocytes/100 WBC (Bld) 12 % 3 - 12 % [place] Platelet mean volume (Bld) [Entitic vol] 9.4 fL 8.1 - 13.5 fL [place] Platelets (Bld) [#/Vol] NOT REPORTED [place] Platelets (Bld) [#/Vol] 199 10*3/uL [place] RBC (Bld) [#/Vol] 4.10 10*6/uL 3.95 - 5.11 m/uL [place] RBC morphology finding Nom (Bld) ANISOCYTOSIS PRESENT [place] Segmented neutrophils/100 WBC (Bld) 63 % 36 - 65 % [place] Segs Absolute 4.97 [place] WBC (Bld) [#/Vol] 0.0 10*3/uL 0.0 per 100 WBC [place] WBC (Bld) [#/Vol] 7.8 10*3/uL [place] WBC Morphology NOT REPORTED [place] CBC with Diffon 08-03-2019 Abs. Basophil 0.04 k/uL Normal 0.00-0.20 [facility] Comment on above: Performed By: #### C DP, CP #### [facility] [employer] [address] [place] [address] Printing Worker Supervisor: Juan Perera MD Abs.Imm.Granulocyte <0.03 Normal 0.00-0.30 [facility] Comment on above: Performed By: #### C DP, CP #### [facility] [employer] [address] [place] [address] Printing Worker Supervisor: Juan Perera MD Abs.Neutrophil (Seg) 4.97 k/uL Normal 1.50-8.10 [facility] Comment on above: Performed By: #### C DP, CP #### [facility] [employer] [address] [place] [address] Printing Worker Supervisor: Juan Perera MD Basophils/100 WBC (Bld) 1 % Normal 0-2 [facility] Comment on above: Performed By: #### C DP, CP #### [address] [address] Printing Worker Supervisor: Juan Perera MD Eosinophils (Bld) [#/Vol] 0.19 10*3/uL Normal 0.00-0.44 [facility] Comment on above: Performed By: #### C DP, CP #### [address] [address] Printing Worker Supervisor: Juan Perera MD Eosinophils/100 WBC (Bld) 2 % Normal 1-4 [facility] Comment on above: Performed By: #### C DP, CP #### [place] [address] Printing Worker Supervisor: Juan Perera MD Erythrocyte distribution width (RBC) [Ratio] 15.5 % High 11.8-14.4 [facility] Comment on above: Performed By: #### C DP, CP #### [place] [address] Printing Worker Supervisor: Juan Perera MD Hematocrit (Bld) [Volume fraction] 37.6 % Normal 36.3-47.1 [facility] Comment on above: Performed By: #### C DP, CP #### [address] [address] Printing Worker Supervisor: Juan Perera MD Hemoglobin (Bld) [Mass/Vol] 11.4 g/dL Low 11.9-15.1 [facility] Comment on above: Performed By: #### C DP, CP #### [address] [address] Printing Worker Supervisor: Juan Perera MD Immature granulocytes (Bld) [#/Vol] 0 % Normal 0 [facility] Comment on above: Performed By: #### C DP, CP #### [place] [address] Printing Worker Supervisor: Juan Perera MD Lymphocytes (Bld) [#/Vol] 1.70 10*3/uL Normal 1.10-3.70 [facility] Comment on above: Performed By: #### C DP, CP #### [place] [address] Printing Worker Supervisor: Juan Perera MD Lymphocytes/100 WBC (Bld) 22 % Low 24-43 [facility] Comment on above: Performed By: #### C DP, CP #### [place] [address] Printing Worker Supervisor: Juan Perera MD MCH (RBC) [Entitic mass] 27.8 pg Normal 25.2-33.5 [facility] Comment on above: Performed By: #### C DP, CP #### [place] [address] Printing Worker Supervisor: Juan Perera MD MCHC (RBC) [Mass/Vol] 30.3 g/dL Normal 28.4-34.8 [facility] Comment on above: Performed By: #### C DP, CP #### [place] [address] Printing Worker Supervisor: Juan Perera MD MCV (RBC) [Entitic vol] 91.7 fL Normal 82.6-102.9 [facility] Comment on above: Performed By: #### C DP, CP #### [place] [address] Printing Worker Supervisor: Juan Perera MD Monocytes (Bld) [#/Vol] 0.92 10*3/uL Normal 0.10-1.20 [facility] Comment on above: Performed By: #### C DP, CP #### [address] [address] Printing Worker Supervisor: Juan Perera MD Monocytes/100 WBC (Bld) 12 % Normal 3-12 [facility] Comment on above: Performed By: #### C DP, CP #### [address] [address] Printing Worker Supervisor: Juan Perera MD Neutrophil (Seg) 63 % Normal 36-65 [facility] Comment on above: Performed By: #### C DP, CP #### [address] [address] Printing Worker Supervisor: Juan Perera MD NRBC Automated 0.0 per 100 WBC Normal 0.0 [facility] Comment on above: Performed By: #### C DP, CP #### [address] [address] Printing Worker Supervisor: Juan Perera MD Platelet mean volume (Bld) [Entitic vol] 9.4 fL Normal 8.1-13.5 [facility] Comment on above: Performed By: #### C DP, CP #### [address] [address] Printing Worker Supervisor: Juan Perera MD Platelets (Bld) [#/Vol] 199 10*3/uL Normal 138-453 [facility] Comment on above: Performed By: #### C DP, CP #### [address] [address] Printing Worker Supervisor: Juan Perera MD RBC (Bld) [#/Vol] 4.10 10*6/uL Normal 3.95-5.11 [facility] Comment on above: Performed By: #### C DP, CP #### [address] [address] Printing Worker Supervisor: Juan Perera MD RBC morphology finding Nom (Bld) ANISOCYTOSIS PRESENT Normal [facility] Comment on above: Performed By: #### C DP, CP #### [address] [address] Printing Worker Supervisor: Juan Perera MD WBC (Bld) [#/Vol] 7.8 10*3/uL Normal 3.5-11.3 [facility] Comment on above: Performed By: #### C DP, CP #### [address] [address] Printing Worker Supervisor: Juan Perera MD Auto Diff Performed NOT REPORTED Normal [facility] Comment on above: Performed By: #### C DP, CP #### [address] [address] Printing Worker Supervisor: Juan Perera MD Platelets (Bld) [#/Vol] NOT REPORTED Normal [facility] Comment on above: Performed By: #### C DP, CP #### [address] [address] Printing Worker Supervisor: Juan Perera MD WBC Morphology NOT REPORTED Normal [facility] Comment on above: Performed By: #### C DP, CP #### [address] [address] Printing Worker Supervisor: Juan Perera MD Comp Metabolic Profon 2018 (cont.) Normal [facility] Comment on above: Result Comment: Aver age GFR for 70 or more years old: 75 mL/min/1.73sq m Chronic Kidney Disease: <60 mL/min/1.73sq m Kidney failure: <15 mL/min/1.73sq m eGFR calculated using average adult body mass. Additional eGFR calculator available at: http://www.BeCoup[employer].MightyMeeting/multiple_crcl_2012.htm Performed By: #### C DP, CP #### [address] [address] Printing Worker Supervisor: Juan Perera MD Albumin [Mass/Vol] 2.7 g/dL Low 3.5-5.2 [facility] Comment on above: Performed By: #### C DP, CP #### [address] [address] Printing Worker Supervisor: Juan Perera MD Albumin/Globulin [Mass ratio] 0.8 {ratio} Low 1.0-2.5 [facility] Comment on above: Performed By: #### C DP, CP #### [address] [address] Printing Worker Supervisor: Juan Perera MD Alkaline Phos 65 U/L Normal 35-104 [facility] Comment on above: Performed By: #### C DP, CP #### [address] [address] Printing Worker Supervisor: Juan Perera MD ALT [Catalytic activity/Vol] 8 U/L Normal 5-33 [facility] Comment on above: Performed By: #### C DP, CP #### [address] [address] Printing Worker Supervisor: Juan Perera MD Anion gap [Moles/Vol] 12 mmol/L Normal 9-17 [facility] Comment on above: Performed By: #### C DP, CP #### [address] [address] Printing Worker Supervisor: Juan Perera MD AST [Catalytic activity/Vol] 13 U/L Normal <32 [facility] Comment on above: Performed By: #### C DP, CP #### [address] [address] Printing Worker Supervisor: Juan Perera MD Bilirubin Ql (U) 0.41 mg/dL Normal 0.3-1.2 [facility] Comment on above: Performed By: #### C DP, CP #### [facility] [employer] [address] [place] [address] Printing Worker Supervisor: Juan Perera MD Calcium [Mass/Vol] 8.3 mg/dL Low 8.6-10.4 [facility] Comment on above: Performed By: #### C DP, CP #### [address] [address] Printing Worker Supervisor: Juan Perera MD Chloride [Moles/Vol] 108 mmol/L High 98-107 [facility] Comment on above: Performed By: #### C DP, CP #### [address] [address] Printing Worker Supervisor: Juan Perera MD CO2 [Moles/Vol] 22 mmol/L Normal 20-31 [facility] Comment on above: Performed By: #### C DP, CP #### [address] [address] Printing Worker Supervisor: Juan Perera MD Creatinine [Mass/Vol] 0.72 mg/dL Normal 0.50-0.90 [facility] Comment on above: Performed By: #### C DP, CP #### [address] [address] Printing Worker Supervisor: Juan Perera MD GFR, Amer >60 Normal >60 [facility] Comment on above: Performed By: #### C DP, CP #### [address] [address] Printing Worker Supervisor: Juan Perera MD GFR,non Amer >60 Normal >60 [facility] Comment on above: Performed By: #### C DP, CP #### [address] [address] Printing Worker Supervisor: Juan Perera MD Glucose [Mass/Vol] 78 mg/dL Normal 70-99 [facility] Comment on above: Performed By: #### C DP, CP #### [address] [address] Printing Worker Supervisor: Juan Perera MD Potassium [Moles/Vol] 3.9 mmol/L Normal 3.7-5.3 [facility] Comment on above: Performed By: #### C DP, CP #### [address] [address] Printing Worker Supervisor: Juan Perera MD Protein [Mass/Vol] 6.2 g/dL Low 6.4-8.3 [facility] Comment on above: Performed By: #### C DP, CP #### [address] [address] Printing Worker Supervisor: Juan Perera MD Sodium [Moles/Vol] 142 mmol/L Normal 135-144 [facility] Comment on above: Performed By: #### C DP, CP #### [address] [address] Printing Worker Supervisor: Juan Perera MD Urea nitrogen [Mass/Vol] 11 mg/dL Normal 8-23 [facility] Comment on above: Performed By: #### C DP, CP #### [address] [address] Printing Worker Supervisor: Juan Perera MD BUN/CRE Ratio NOT REPORTED Normal 9-20 [facility] Comment on above: Performed By: #### C DP, CP #### [address] [address] Printing Worker Supervisor: Juan Perera MD Staging: NOT REPORTED Normal [facility] Comment on above: Performed By: #### C DP, CP #### [address] [address] Printing Worker Supervisor: Juan Perera MD Comprehensive Metabolic Pane harsha 08-03-2019 Albumin [Mass/Vol] 2.7 g/dL Low 3.5 - 5.2 g/dL [place] Albumin/Globulin [Mass ratio] 0.8 {ratio} Low [place] ALP [Catalytic activity/Vol] 65 U/L 35 - 104 U/L [place] ALT [Catalytic activity/Vol] 8 U/L 5 - 33 U/L [place] Anion gap [Moles/Vol] 12 mmol/L 9 - 17 mmol/L [place] AST [Catalytic activity/Vol] 13 U/L <32 [place] Bilirubin Ql (U) 0.41 mg/dL 0.3 - 1.2 mg/dL [place] Bun/Cre Ratio NOT REPORTED [place] Calcium [Mass/Vol] 8.3 mg/dL Low 8.6 - 10. 4 mg/dL [place] Chloride [Moles/Vol] 108 mmol/L High 98 - 10 7 mmol/L [place] CO2 [Moles/Vol] 22 mmol/L 20 - 31 mmol/L [place] Creatinine [Mass/Vol] 0.72 mg/dL 0.5 - 0.9 mg/dL [place] GFR >60 >60 mL/min [place] GFR Non- >60 >60 mL/min [place] GFR/1.73 sq M predicted among non-blacks MDRD (S/P/Bld) [Vol rate/Area] NOT REPORTED [place] GFR/1.73 sq M predicted among non-blacks MDRD (S/P/Bld) [Vol rate/Area] [place] Comment on above: Average GFR for 70 o r more years old: 75 mL/min/1.73sq m Chronic Kidney Disease: <60 mL/min/1.73sq m Kidney failure: <15 mL/min/1.73sq m eGFR calculated using average adult body mass. Additional eGFR calculator available at: http://www.BeCouply.MightyMeeting/multiple_crcl_2012.htm Glucose [Mass/Vol] 78 mg/dL 70 - 99 mg/dL [place] Interpretation and review of laboratory results Abnormal [place] Potassium [Moles/Vol] 3.9 mmol/L 3.7 - 5.3 mmol/L [place] Protein [Mass/Vol] 6.2 g/dL Low 6.4 - 8.3 g/dL [place] Sodium [Moles/Vol] 142 mmol/L 135 - 144 mmol/L [place] Urea nitrogen [Mass/Vol] 11 mg/dL 8 - 23 mg/dL [place] XR ABDOMEN (KUB) (SINGLE AP VIEW)on [...] Martin Hope MD 08/03/19 Final result Normal [facility] Nonspecific bowel ga s pattern. [place] Robert, Mhpn Incoming R adiant Results From [facility] - 08/03/2019 9:28 AM EDT EXAMINATION: ONE SUPINE XRAY VIEW(S) OF THE ABDOMEN 08/03/2019 9:06 am COMPARISON: 08/02/2019 HISTORY: ORDERING SYSTEM PROVIDED HISTORY: SBO TECHNOLOGIST PROVIDED HISTORY: SBO Reason for Exam: supine FINDINGS: Nonspecific bowel gas pattern. No pathologic bowel dilatation. Gas throughout the colon. Rectal gas. Enteric tube within the stomach. No organomegaly. No suspicious calcifications. IMPRESSION: Nonspecific bowel gas pattern. [place] EXAMINATION: ONE SUP INE XRAY VIEW(S) OF THE ABDOMEN 08/03/2019 9:06 am COMPARISON: 08/02/2019 HISTORY: ORDERING SYSTEM PROVIDED HISTORY: SBO TECHNOLOGIST PROVIDED HISTORY: SBO Reason for Exam: supine FINDINGS: Nonspecific bowel gas pattern. No pathologic bowel dilatation. Gas throughout the colon. Rectal gas. Enteric tube within the stomach. No organomegaly. No suspicious calcifications. [place] CBC Auto Differentialon 10-0 Basophils (Bld) [#/Vol] 0.03 10*3/uL [place] Basophils/100 WBC (Bld) 0 % 0 - 2 % [place] Differential Type NOT REPORTED [place] Eosinophils (Bld) [#/Vol] 0.17 10*3/uL [place] Eosinophils/100 WBC (Bld) 2 % 1 - 4 % [place] Erythrocyte distribution width (RBC) [Ratio] 15.6 % High 11.8 - 14.4 % [place] Hematocrit (Bld) [Volume fraction] 36.3 % 36.3 - 47.1 % [place] Hemoglobin (Bld) [Mass/Vol] 11.7 g/dL Low 11.9 - 15.1 g/dL [place] Immature granulocytes (Bld) [#/Vol] 0 % 0 [place] Immature granulocytes (Bld) [#/Vol] 0.03 10*3/uL [place] Interpretation and review of laboratory results Abnormal [place] Lymphocytes (Bld) [#/Vol] 1.85 10*3/uL [place] Lymphocytes/100 WBC (Bld) 20 % Low 24 - 43 % [place] MCH (RBC) [Entitic mass] 27.9 pg 25.2 - 33.5 pg [place] MCHC (RBC) [Mass/Vol] 32.2 g/dL 28.4 - 34.8 g/dL [place] MCV (RBC) [Entitic vol] 86.6 fL 82.6 - 102.9 fL [place] Monocytes (Bld) [#/Vol] 1.08 10*3/uL [place] Monocytes/100 WBC (Bld) 12 % 3 - 12 % [place] Platelet mean volume (Bld) [Entitic vol] 9.3 fL 8.1 - 13.5 fL [place] Platelets (Bld) [#/Vol] 215 10*3/uL [place] Platelets (Bld) [#/Vol] NOT REPORTED [place] RBC (Bld) [#/Vol] 4.19 10*6/uL 3.95 - 5.11 m/uL [place] RBC morphology finding Nom (Bld) ANISOCYTOSIS PRESENT [place] Segmented neutrophils/100 WBC (Bld) 66 % High 36 - 65 % [place] Segs Absolute 6.12 [place] WBC (Bld) [#/Vol] 9.3 10*3/uL [place] WBC (Bld) [#/Vol] 0.0 10*3/uL 0.0 per 100 WBC [place] WBC Morphology NOT REPORTED [place] CBC with Diffon 08-02-2019 Abs. Basophil 0.03 k/uL Normal 0.00-0.20 [facility] Comment on above: Performed By: #### L ARAMIS HO, REJEC #### [facility] [employer] [address] [place] [address] Printing Worker Supervisor: Juan Perera MD Abs.Imm.Granulocyte 0.03 k/uL Normal 0.00-0.30 [facility] Comment on above: Performed By: #### L ARAMIS HO, REJEC #### [facility] [employer] [address] [place] [address] Printing Worker Supervisor: Juan Perera MD Abs.Neutrophil (Seg) 6.12 k/uL Normal 1.50-8.10 [facility] Comment on above: Performed By: #### L ARAMIS HO, REJEC #### [facility] [employer] [address] [place] [address] Printing Worker Supervisor: Juan Perera MD Basophils/100 WBC (Bld) 0 % Normal 0-2 [facility] Comment on above: Performed By: #### L [place] CDP, REJEC #### [address] [address] Printing Worker Supervisor: Juan Perera MD Eosinophils (Bld) [#/Vol] 0.17 10*3/uL Normal 0.00-0.44 [facility] Comment on above: Performed By: #### L ACWSandi CDP, REJEC #### [address] [address] Printing Worker Supervisor: Juan Perera MD Eosinophils/100 WBC (Bld) 2 % Normal 1-4 [facility] Comment on above: Performed By: #### L ACABDIRAHMAN CDP, REJEC #### [address] [address] Printing Worker Supervisor: Juan Perera MD Immature granulocytes (Bld) [#/Vol] 0 % Normal 0 [facility] Comment on above: Performed By: #### L ACWSandi CDP, REJEC #### [address] [address] Printing Worker Supervisor: Juan Perera MD Lymphocytes (Bld) [#/Vol] 1.85 10*3/uL Normal 1.10-3.70 [facility] Comment on above: Performed By: #### L ACARAMIS GARY, REJEC #### [address] [address] Printing Worker Supervisor: Juan Perera MD Lymphocytes/100 WBC (Bld) 20 % Low 24-43 [facility] Comment on above: Performed By: #### L ACWSandi CDP, REJEC #### [address] [address] Printing Worker Supervisor: Juan Perera MD Monocytes (Bld) [#/Vol] 1.08 10*3/uL Normal 0.10-1.20 [facility] Comment on above: Performed By: #### L ACWB, CDP, REJEC #### [facility] [employer] [address] [place] [address] Printing Worker Supervisor: Juan Perera MD Monocytes/100 WBC (Bld) 12 % Normal 3-12 [facility] Comment on above: Performed By: #### L ACWB, CDP, REJEC #### [facility] [employer] [address] [place] [address] Printing Worker Supervisor: Juan Perera MD Neutrophil (Seg) 66 % High 36-65 [facility] Comment on above: Performed By: #### L ACWB CDP, REJEC #### [facility] [employer] [address] [place] [address] Printing Worker Supervisor: Juan Perera MD RBC morphology finding Nom (Bld) ANISOCYTOSIS PRESENT Normal [facility] Comment on above: Performed By: #### L ACWB CDP, REJEC #### [facility] [address] [place] [address] Printing Worker Supervisor: Juan Perera MD Erythrocyte distribution width (RBC) [Ratio] 15.6 % High 11.8-14.4 [facility] Comment on above: Performed By: #### L ACWB CDP, REJEC #### [facility] [address] [place] [address] Printing Worker Supervisor: Juan Perera MD Hematocrit (Bld) [Volume fraction] 36.3 % Normal 36.3-47.1 [facility] Comment on above: Performed By: #### L ACWB, CDP, REJEC #### [facility] [address] [place] [address] Printing Worker Supervisor: Juan Perera MD Hemoglobin (Bld) [Mass/Vol] 11.7 g/dL Low 11.9-15.1 [facility] Comment on above: Performed By: #### L ACWB, CDP, REJEC #### [address] [address] Printing Worker Supervisor: Juan Perera MD MCH (RBC) [Entitic mass] 27.9 pg Normal 25.2-33.5 [facility] Comment on above: Performed By: #### L ARAMIS HO, REJEC #### [address] [address] Printing Worker Supervisor: Juan Perera MD MCHC (RBC) [Mass/Vol] 32.2 g/dL Normal 28.4-34.8 [facility] Comment on above: Performed By: #### L ARAMIS HO, REJEC #### [address] [address] Printing Worker Supervisor: Juan Perera MD MCV (RBC) [Entitic vol] 86.6 fL Normal 82.6-102.9 [facility] Comment on above: Performed By: #### ARAMIS SORIANO, REJEC #### [address] [address] Printing Worker Supervisor: Juan Perera MD NRBC Automated 0.0 per 100 WBC Normal 0.0 [facility] Comment on above: Performed By: #### L ARAMIS HO, REJEC #### [address] [address] Printing Worker Supervisor: Juan Perera MD Platelet mean volume (Bld) [Entitic vol] 9.3 fL Normal 8.1-13.5 [facility] Comment on above: Performed By: #### L ARAMIS HO, REJEC #### [address] [address] Printing Worker Supervisor: Juan Perera MD Platelets (Bld) [#/Vol] 215 10*3/uL Normal 138-453 [facility] Comment on above: Performed By: #### L ACWB, CDP, REJEC #### [facility] [address] [place] [address] Printing Worker Supervisor: Juan Perera MD RBC (Bld) [#/Vol] 4.19 10*6/uL Normal 3.95-5.11 [facility] Comment on above: Performed By: #### L ACWB, CDP, REJEC #### [facility] [address] [place] [address] Printing Worker Supervisor: Juan Perera MD WBC (Bld) [#/Vol] 9.3 10*3/uL Normal 3.5-11.3 [facility] Comment on above: Performed By: #### L ACWB, CDP, REJEC #### [facility] [address] [place] [address] Printing Worker Supervisor: Juan Perera MD Auto Diff Performed NOT REPORTED Normal [facility] Comment on above: Performed By: #### L ACWB, CDP, REJEC #### [facility] [address] [place] [address] Printing Worker Supervisor: Juan Perera MD Platelets (Bld) [#/Vol] NOT REPORTED Normal [facility] Comment on above: Performed By: #### L ACWB, CDP, REJEC #### [facility] [address] [place] [address] Printing Worker Supervisor: Juan Perera MD WBC Morphology NOT REPORTED Normal [facility] Comment on above: Performed By: #### L ACWB, CDP, REJEC #### [facility] [address] [place] [address] Printing Worker Supervisor: Juan Perera MD Comp Metabolic Profon 2018 (cont.) Normal [facility] Comment on above: Result Comment: Aver age GFR for 70 or more years old: 75 mL/min/1.73sq m Chronic Kidney Disease: <60 mL/min/1.73sq m Kidney failure: <15 mL/min/1.73sq m eGFR calculated using average adult body mass. Additional eGFR calculator available at: http://www.BeCouply.MightyMeeting/multiple_crcl_2012.htm Performed By: #### C P #### [address] [address] Printing Worker Supervisor: Juan Perera MD Albumin [Mass/Vol] 3.1 g/dL Low 3.5-5.2 [facility] Comment on above: Performed By: #### C P #### [address] [address] Printing Worker Supervisor: Juan Perera MD Albumin/Globulin [Mass ratio] 0.9 {ratio} Low 1.0-2.5 [facility] Comment on above: Performed By: #### C P #### [address] [address] Printing Worker Supervisor: Juan Perera MD Alkaline Phos 68 U/L Normal 35-104 [facility] Comment on above: Performed By: #### C P #### [address] [address] Printing Worker Supervisor: Juan Perera MD ALT [Catalytic activity/Vol] 8 U/L Normal 5-33 [facility] Comment on above: Performed By: #### C P #### [address] [address] Printing Worker Supervisor: Juan Perera MD Anion gap [Moles/Vol] 9 mmol/L Normal 9-17 [facility] Comment on above: Performed By: #### C P #### [address] [address] Printing Worker Supervisor: Juan Perera MD AST [Catalytic activity/Vol] 11 U/L Normal <32 [facility] Comment on above: Performed By: #### C P #### [address] [address] Printing Worker Supervisor: Juan Perera MD Bilirubin Ql (U) 0.39 mg/dL Normal 0.3-1.2 [facility] Comment on above: Performed By: #### C P #### [address] [address] Printing Worker Supervisor: Juan Perera MD Calcium [Mass/Vol] 8.6 mg/dL Normal 8.6-10.4 [facility] Comment on above: Performed By: #### C P #### [address] [address] Printing Worker Supervisor: Juan Perera MD Chloride [Moles/Vol] 106 mmol/L Normal 98-107 [facility] Comment on above: Performed By: #### C P #### [address] [address] Printing Worker Supervisor: Juan Perera MD CO2 [Moles/Vol] 25 mmol/L Normal 20-31 [facility] Comment on above: Performed By: #### C P #### [address] [address] Printing Worker Supervisor: Juan Perera MD Creatinine [Mass/Vol] 0.68 mg/dL Normal 0.50-0.90 [facility] Comment on above: Performed By: #### C P #### [address] [address] Printing Worker Supervisor: Juan Perera MD GFR, Amer >60 Normal >60 [facility] Comment on above: Performed By: #### C P #### [address] [address] Printing Worker Supervisor: Juan Perera MD GFR,non Amer >60 Normal >60 [facility] Comment on above: Performed By: #### C P #### [address] [address] Printing Worker Supervisor: Juan Perera MD Glucose [Mass/Vol] 108 mg/dL High 70-99 [facility] Comment on above: Performed By: #### C P #### [address] [address] Printing Worker Supervisor: Juan Perera MD Potassium [Moles/Vol] 3.8 mmol/L Normal 3.7-5.3 [facility] Comment on above: Performed By: #### C P #### [address] [address] Printing Worker Supervisor: Juan Perera MD Protein [Mass/Vol] 6.4 g/dL Normal 6.4-8.3 [facility] Comment on above: Performed By: #### C P #### [address] [address] Printing Worker Supervisor: Juan Perera MD Sodium [Moles/Vol] 140 mmol/L Normal 135-144 [facility] Comment on above: Performed By: #### C P #### [address] [address] Printing Worker Supervisor: Juan Perera MD Urea nitrogen [Mass/Vol] 14 mg/dL Normal 8-23 [facility] Comment on above: Performed By: #### C P #### [address] [address] Printing Worker Supervisor: Juan Perera MD BUN/CRE Ratio NOT REPORTED Normal 9-20 [facility] Comment on above: Performed By: #### C P #### [address] [address] Printing Worker Supervisor: Juan Perera MD Staging: NOT REPORTED Normal [facility] Comment on above: Performed By: #### C P #### [facility] [employer] [address] [phone] Printing Worker Supervisor: Juan Perera MD Comprehensive Metabolic Pane harsha 08-02-2019 Albumin [Mass/Vol] 3.1 g/dL Low 3.5 - 5.2 g/dL [place] Albumin/Globulin [Mass ratio] 0.9 {ratio} Low [place] ALP [Catalytic activity/Vol] 68 U/L 35 - 104 U/L [place] ALT [Catalytic activity/Vol] 8 U/L 5 - 33 U/L [place] Anion gap [Moles/Vol] 9 mmol/L 9 - 17 mmol/L [place] AST [Catalytic activity/Vol] 11 U/L <32 [place] Bilirubin Ql (U) 0.39 mg/dL 0.3 - 1.2 mg/dL [place] Bun/Cre Ratio NOT REPORTED [place] Calcium [Mass/Vol] 8.6 mg/dL 8.6 - 10. 4 mg/dL [place] Chloride [Moles/Vol] 106 mmol/L 98 - 10 7 mmol/L [place] CO2 [Moles/Vol] 25 mmol/L 20 - 31 mmol/L [place] Creatinine [Mass/Vol] 0.68 mg/dL 0.5 - 0.9 mg/dL [place] GFR >60 >60 mL/min [place] GFR Non- >60 >60 mL/min [place] GFR/1.73 sq M predicted among non-blacks MDRD (S/P/Bld) [Vol rate/Area] [place] Comment on above: Average GFR for 70 o r more years old: 75 mL/min/1.73sq m Chronic Kidney Disease: <60 mL/min/1.73sq m Kidney failure: <15 mL/min/1.73sq m eGFR calculated using average adult body mass. Additional eGFR calculator available at: http://www.BeCouply.MightyMeeting/multiple_crcl_2012.htm GFR/1.73 sq M predicted among non-blacks MDRD (S/P/Bld) [Vol rate/Area] NOT REPORTED [place] Glucose [Mass/Vol] 108 mg/dL High 70 - 99 mg/dL [place] Interpretation and review of laboratory results Abnormal [place] Potassium [Moles/Vol] 3.8 mmol/L 3.7 - 5.3 mmol/L [place] Protein [Mass/Vol] 6.4 g/dL 6.4 - 8.3 g/dL [place] Sodium [Moles/Vol] 140 mmol/L 135 - 144 mmol/L [place] Urea nitrogen [Mass/Vol] 14 mg/dL 8 - 23 mg/dL [place] LACTIC ACID, WHOLE BLOODon 1 Lactic Acid, Whole Blood 1.0 mmol/L 0.7 - 2.1 mmol/L [place] Lactic Acid,Whole Blon 08-02 Lactic Acid,Whole Bl 1.0 mmol/L Normal 0.7-2.1 [facility] Comment on above: Performed By: #### L ARAMIS HO, REJHUBERT #### [facility] [employer] [address] [place] [address] Printing Worker Supervisor: Juan Perera MD SPECIMEN REJECTIONon Ordered Test CP [place] Reason for Rejection Unable to perform t esting: Specimen hemolyzed. [place] Specimen source Nom (Unsp spec) ASSISTANT DIRECTOR OF RESIDENCE LIFE [place] - NOT REPORTED [place] Specimen Rejectionon 019 Reason for rejection Unable to perform t esting: Specimen hemolyzed. [facility] Comment on above: Performed By: #### L ARAMIS HO, REJEC #### [facility] [employer] [address] [place] [address] Printing Worker Supervisor: Juan Perera MD Source of sample ASSISTANT DIRECTOR OF RESIDENCE LIFE Normal [facility] Comment on above: Performed By: #### L ACWB, CDP, REJEC #### [facility] [address], [place] [id number] Printing Worker Supervisor: Juan Perera MD Test ordered CP Normal [facility] Comment on above: Performed By: #### L ACWB, CDP, REJEC #### [facility] [address], [place] [id number] Printing Worker Supervisor: Juan Perera MD ----- NOT REPORTED Normal [facility] Comment on above: Performed By: #### L ACWB, CDP, REJEC #### [facility] [address], [place] [phone] Printing Worker Supervisor: Juan Perera MD XR ABDOMEN FOR NG/OG/NE [...] Eduardo Horner MD 08/02/19 Final result Normal [facility] Robert, Mhpn Incoming R adiant Results From [facility] - 08/02/2019 4:59 AM EDT EXAMINATION: ONE [...] The tube should be advanced 4 cm. [place] EXAMINATION: ONE SUP INE XRAY VIEW(S) [...] system. Very little bowel gas is seen. [place] The tip of the enter ic tube is in the stomach though the proximal side hole is in the esophagus. The tube should be advanced 4 cm[facility] Screen[facility] Bilat.on 07-02-2018 MA [...] lymph nodes are noted bilaterally.I CAD image card checker was utilized for this study.IMPRESSION:1. NO [...] reports average 6 to 10%.TARIQ Stoddard #: [id number]: 07/03/2018T: 07/03/2018 Final Dictated by: Chidi Preston MD SDictated DT/TM: 07/03/18 9:47Signed (Electronic Signature): Chidi Preston MD 07/03/18 1:53 pmTechnologist: CMAAssessment: 2-Benign findingRecommendation: Normal interval follow-up [facility] Provider Orderson 06-19-2018 Protein mass conc [id number] [facility] Coding Summaryon 09-03-2017 Coding Summary CODING DATE: 017 [facility] STATUS: Home PAYOR: Medicare ADMIT DX: [...] Waller Revised Date Saved: 06/24/2017 10:08 am [facility] Vital Signs Date Time Vital Sign Value Performing Clinician Facility 02-19-2024 19:31-0400 SaO2% (BldA) [Mass fraction] 95 % APURVA SIERRA [facility] Comment on above: Performed By: #### ELEC #### [facility] ([id number]) [address] [facility] [facility], [address] [place] [address] 02-17-2024 16:00-0400 Inhaled oxygen flow rate 3.5 L/min DO Gustavo Salas Work Phone: [facility] 02-17-2024 16:00-0400 SaO2% (BldA) [Mass fraction] 90 % DO Gustavo Salas Work Phone: [facility] 02-17-2024 14:02-0400 Body height 152.4 cm DO Gustavo Maritza Work Phone: [facility] 02-17-2024 12:32-0400 Diastolic blood pressure 53 mm[Hg] DO Gustavo Maritza Work Phone: [facility] 02-17-2024 12:32-0400 Heart rate 96 /min DO Gustavo Salas Work Phone: [facility] 02-17-2024 12:32-0400 Respiratory rate 18 /min DO Gustavo Salas Work Phone: [facility] 02-17-2024 12:32-0400 Systolic blood pressure 116 mm[Hg] DO Gustavo Salas Work Phone: [facility] 02-17-2024 08:00-0400 Body temperature 97.8 [degF] DO Gustavo Salas Work Phone: [facility] 02-17-2024 05:48-0400 Body weight 86.1 kg DO Gustavo Salas Work Phone: [facility] 02-14-2024 16:43-0400 Body height 152.4 cm DO Gustavo Salas Work Phone: [facility] 02-14-2024 16:43-0400 Body temperature 98.3 [degF] DO Gustavo Salas Work Phone: [facility] 02-14-2024 16:43-0400 Body weight 84.9 kg DO Gustavo Salas Work Phone: [facility] 02-14-2024 16:43-0400 Diastolic blood pressure 69 mm[Hg] DO Gustavo Maritza Work Phone: [facility] 02-14-2024 16:43-0400 Heart rate 105 /min DO Gustavo Maritza Work Phone: [facility] 02-14-2024 16:43-0400 Inhaled oxygen flow rate 4 L/min DO Gustavo Salas Work Phone: [facility] 02-14-2024 16:43-0400 Respiratory rate 20 /min DO Gustavo Salas Work Phone: [facility] 02-14-2024 16:43-0400 SaO2% (BldA) [Mass fraction] 92 % DO Gustavo Salas Work Phone: [facility] 02-14-2024 16:43-0400 Systolic blood pressure 119 mm[Hg] DO Gustavo Salas Work Phone: [facility] 02-10-2024 12:36-0400 Body height 152.4 cm Jenna Engle MD Work Phone: [facility] 02-10-2024 12:36-0400 Body mass index (BMI) [Ratio] 35.15 kg/m2 Jenna Engle MD Work Phone: [facility] 02-10-2024 12:36-0400 Body weight 81.65 kg Jenna Engle MD Work Phone: [facility] 02-10-2024 12:36-0400 Diastolic blood pressure 70 mm[Hg] Jenna Engle MD Work Phone: [facility] 02-10-2024 12:36-0400 Heart rate 96 /min Jenna Engle MD Work Phone: [facility] 02-10-2024 12:36-0400 Systolic blood pressure 120 mm[Hg] Jenna Engle MD Work Phone: [facility] 01-30-2024 13:31-0400 Blood Pressure Location Renae Ponce [facility] 01-30-2024 13:31-0400 Body temperature 98.24 [degF] Renae Ponce [facility] 01-30-2024 13:31-0400 Diastolic blood pressure 82 mm[Hg] Renae Orzech [facility] 01-30-2024 13:31-0400 Heart rate 84 /min Renae Orzech [facility] 01-30-2024 13:31-0400 Systolic blood pressure 118 mm[Hg] Renae Orzech [facility] 01-27-2024 13:42-0400 Body height 162.[address] 01-27-2024 13:42-0400 Body mass index (BMI) [Ratio] 32.96 kg/m2 [address] 01-27-2024 13:42-0400 Body weight 87.[address] 01-27-2024 13:42-0400 Diastolic blood pressure 78 mm[Hg] [address] 01-27-2024 13:42-0400 Systolic blood pressure 126 mm[Hg] [address] 01-06-2024 11:39-0400 Diastolic blood pressure 72 mm[Hg] Jenna Engle MD Work Phone: [facility] 01-06-2024 11:39-0400 Systolic blood pressure 128 mm[Hg] Jenna Engle MD Work Phone: [facility] 01-06-2024 11:38-0400 Body height 162.6 cm Jenna Engle MD Work Phone: [facility] 01-06-2024 11:38-0400 Body mass index (BMI) [Ratio] 32.96 kg/m2 Jenna Engle MD Work Phone: [facility] 01-06-2024 11:38-0400 Body weight 87.09 kg Jenna Engle MD Work Phone: [facility] 01-06-2024 11:38-0400 Heart rate 62 /min Jenna Engle MD Work Phone: [facility] 12-09-2023 11:08-0500 Body mass index (BMI) [Ratio] 34.18 kg/m2 Gustavo Salas DO Work Phone: [facility] 12-09-2023 11:08-0500 Body temperature 97.5 [degF] Gustavoed Salas DO Work Phone: [facility] 12-09-2023 11:08-0500 Body weight 79.38 kg Gustavo Salas DO Work Phone: [facility] 12-09-2023 11:08-0500 Diastolic blood pressure 72 mm[Hg] Gustavoed Salas DO Work Phone: [facility] 12-09-2023 11:08-0500 Heart rate 106 /min Gustavo Maritza DO Work Phone: [facility] 12-09-2023 11:08-0500 SaO2% (BldA) [Mass fraction] 96 % Gustavo Salas DO Work Phone: [facility] 12-09-2023 11:08-0500 Systolic blood pressure 122 mm[Hg] Gustavo Salas DO Work Phone: [facility] 08-20-2023 16:32-0400 Heart rate 95 /min DO Gustavoed Salas Work Phone: [facility] 08-20-2023 16:32-0400 Respiratory rate 20 /min DO Gustavoed Salas Work Phone: [facility] 08-20-2023 12:00-0400 Body temperature 98.1 [degF] DO Gustavoed Salas Work Phone: [facility] 08-20-2023 12:00-0400 Diastolic blood pressure 90 mm[Hg] DO Gustavo Maritza Work Phone: [facility] 08-20-2023 12:00-0400 SaO2% (BldA) [Mass fraction] 95 % DO Gustavo Salas Work Phone: [facility] 08-20-2023 12:00-0400 Systolic blood pressure 125 mm[Hg] DO Gustavo Maritza Work Phone: [facility] 08-20-2023 04:47-0400 Body weight 82.7 kg DO Gustavo Salas Work Phone: [facility] 08-19-2023 13:57-0400 Body height 152.4 cm DO Gustavo Salas Work Phone: [facility] 08-17-2023 20:08-0400 Diastolic blood pressure 68 mm[Hg] DO Gustavo Salas Work Phone: [facility] 08-17-2023 20:08-0400 Heart rate 80 /min DO Gustavo Salas Work Phone: [facility] 08-17-2023 20:08-0400 Respiratory rate 20 /min DO Gustavo Salas Work Phone: [facility] 08-17-2023 20:08-0400 SaO2% (BldA) [Mass fraction] 95 % DO Gustavo Salas Work Phone: [facility] 08-17-2023 20:08-0400 Systolic blood pressure 132 mm[Hg] DO Gustavo Salas Work Phone: [facility] 08-17-2023 16:09-0400 Body temperature 97.4 [degF] DO Gustavo Salas Work Phone: [facility] 08-17-2023 16:07-0400 Body height 152.4 cm DO Gustavoed Salas Work Phone: [facility] 08-17-2023 16:07-0400 Body weight 81 kg DO Gustavo Maritza Work Phone: [facility] 07-14-2023 13:39-0400 Body temperature 97.8 [degF] DO Gustavo Maritza Work Phone: [facility] 07-14-2023 13:39-0400 Diastolic blood pressure 79 mm[Hg] DO Gustavo Maritza Work Phone: [facility] 07-14-2023 13:39-0400 Heart rate 80 /min DO Gustavo Maritza Work Phone: [facility] 07-14-2023 13:39-0400 Respiratory rate 18 /min DO Gustavo Maritza Work Phone: [facility] 07-14-2023 13:39-0400 SaO2% (BldA) [Mass fraction] 94 % DO Gustavo Maritza Work Phone: [facility] 07-14-2023 13:39-0400 Systolic blood pressure 110 mm[Hg] DO Gustavo Salas Work Phone: [facility] 07-14-2023 06:00-0400 Body weight 90.1 kg DO Gustavo Salas Work Phone: [facility] 07-11-2023 15:28-0400 Body height 152.4 cm DO Gustavo Salas Work Phone: [facility] 07-10-2023 13:00-0400 Diastolic blood pressure 59 mm[Hg] DO Gustavo Maritza Work Phone: [facility] 07-10-2023 13:00-0400 Heart rate 72 /min DO Gustavo Maritza Work Phone: [facility] 07-10-2023 13:00-0400 Respiratory rate 18 /min DO Gustavo Maritza Work Phone: [facility] 07-10-2023 13:00-0400 SaO2% (BldA) [Mass fraction] 96 % DO Gustavo Maritza Work Phone: [facility] 07-10-2023 13:00-0400 Systolic blood pressure 107 mm[Hg] DO Gustavo Salas Work Phone: [facility] 06-17-2023 15:04-0400 Body height 152.4 cm DO Gustavo Salas Work Phone: [facility] 06-17-2023 15:04-0400 Body temperature 98.7 [degF] DO Gustavo Salas Work Phone: [facility] 06-17-2023 15:04-0400 Body weight 80.28 kg DO Gustavo Salas Work Phone: [facility] 06-17-2023 15:04-0400 Diastolic blood pressure 55 mm[Hg] DO Gustavo Salas Work Phone: [facility] 06-17-2023 15:04-0400 Heart rate 76 /min DO Gustavo Salas Work Phone: [facility] 06-17-2023 15:04-0400 Respiratory rate 19 /min DO Gustavo Salas Work Phone: [facility] 06-17-2023 15:04-0400 SaO2% (BldA) [Mass fraction] 96 % DO Gustavo Salas Work Phone: [facility] 06-17-2023 15:04-0400 Systolic blood pressure 110 mm[Hg] DO Gustavo Salas Work Phone: [facility] 12-31-2022 11:45-0500 Body temperature 97.3 [degF] DO Gustavo Salas Work Phone: [facility] 12-31-2022 11:45-0500 Diastolic blood pressure 72 mm[Hg] DO Gustavo Salas Work Phone: [facility] 12-31-2022 11:45-0500 Heart rate 78 /min DO Gustavo Salas Work Phone: [facility] 12-31-2022 11:45-0500 Inhaled oxygen flow rate 2 L/min DO Gustavo Salas Work Phone: [facility] 12-31-2022 11:45-0500 Respiratory rate 18 /min DO Gustavo Salas Work Phone: [facility] 12-31-2022 11:45-0500 SaO2% (BldA) [Mass fraction] 92 % DO Gustavo Salas Work Phone: [facility] 12-31-2022 11:45-0500 Systolic blood pressure 114 mm[Hg] DO Gustavo Salas Work Phone: [facility] 12-31-2022 06:00-0500 Body weight 83.5 kg DO Gustavo Salas Work Phone: [facility] 12-27-2022 10:00-0500 Body height 152.4 cm DO Gustavo Salas Work Phone: [facility] 12-26-2022 23:00-0500 Diastolic blood pressure 60 mm[Hg] DO Gustavo Salas Work Phone: [facility] 12-26-2022 23:00-0500 Heart rate 77 /min DO Gustavo Salas Work Phone: [facility] 12-26-2022 23:00-0500 Respiratory rate 18 /min DO Gustavo Salas Work Phone: [facility] 12-26-2022 23:00-0500 SaO2% (BldA) [Mass fraction] 94 % DO Gustavo Salas Work Phone: [facility] 12-26-2022 23:00-0500 Systolic blood pressure 130 mm[Hg] DO Gustavo Salas Work Phone: [facility] 12-26-2022 18:59-0500 Body height 152.4 cm DO Gustavo Salas Work Phone: [facility] 12-26-2022 18:59-0500 Body temperature 98.8 [degF] DO Gustavo Maritza Work Phone: [facility] 12-26-2022 18:59-0500 Body weight 84.3 kg DO Gustavo Maritza Work Phone: [facility] 11-22-2022 11:25-0500 Body temperature 97.5 [degF] DO Gustavo Maritza Work Phone: [facility] 11-22-2022 11:25-0500 Diastolic blood pressure 68 mm[Hg] DO Gustavo Maritza Work Phone: [facility] 11-22-2022 11:25-0500 Heart rate 72 /min DO Gustavo Maritza Work Phone: [facility] 11-22-2022 11:25-0500 Respiratory rate 22 /min DO Gustavo Maritza Work Phone: [facility] 11-22-2022 11:25-0500 SaO2% (BldA) [Mass fraction] 93 % DO Gustavo Maritza Work Phone: [facility] 11-22-2022 11:25-0500 Systolic blood pressure 146 mm[Hg] DO Gustavo Maritza Work Phone: [facility] 11-22-2022 10:26-0500 Body height 152.4 cm DO Gustavo Maritza Work Phone: [facility] 11-22-2022 10:26-0500 Body weight 87.9 kg DO Gustavo Maritza Work Phone: [facility] 05-31-2022 15:12-0400 Diastolic blood pressure 75 mm[Hg] DO Gustavo Maritza Work Phone: [facility] 05-31-2022 15:12-0400 Heart rate 69 /min DO Gustavo Maritza Work Phone: [facility] 05-31-2022 15:12-0400 Respiratory rate 25 /min DO Gustavo Maritza Work Phone: [facility] 05-31-2022 15:12-0400 SaO2% (BldA) [Mass fraction] 98 % DO Gustavo Salas Work Phone: [facility] 05-31-2022 15:12-0400 Systolic blood pressure 156 mm[Hg] DO Gustavo Salas Work Phone: [facility] 05-31-2022 11:02-0400 Body height 154.94 cm DO Gustavo Salas Work Phone: [facility] 05-31-2022 11:02-0400 Body temperature 97.1 [degF] DO Gustavo Salas Work Phone: [facility] 05-31-2022 11:02-0400 Body weight 86.18 kg DO Gustavo Salas Work Phone: [facility] 08-04-2019 08:30-0400 Body Temperature 97.81 [degF] Hayden Watters [facility], [place] 08-04-2019 08:30-0400 BP Diastolic 69 mm[Hg] Hayden Watters [facility] [place] 08-04-2019 08:30-0400 BP Systolic 161 mm[Hg] Hayden Watters [facility] [place] 08-04-2019 08:30-0400 Pulse (Heart Rate) 78 /min [facility] 08-04-2019 08:30-0400 Pulse Oximetry 92 % Hayden Watters [facility] [place] 08-04-2019 08:30-0400 Respiratory Rate 18 /min Hayden Watters [facility] [place] 08-02-2019 01:00-0400 BMI (Body Mass Index) 34.44 kg/m2 [facility] 08-02-2019 01:00-0400 Body weight 82.67 kg Hayden Watters [facility] [place] 08-02-2019 01:00-0400 Height 154.9 cm Hayden Watters [facility] [place], [place] Encounters Encounter Date Encounter Type Care Provider Facility Start: 10-07-2024 End: 10-09-2024 Clinisync Result Encounter Generic External Data Provider [facility] External Department Unsolicited Start: 10-07-2024 End: 10-09-2024 Clinisync Result Encounter Generic External Data Provider [facility] External Department Unsolicited Start: 10-06-2024 End: 10-06-2024 Patient encounter procedure Gustavo Salas DO Work Phone: [facility] Comment on above: Centrilobular emphys josue (CMS/HCC) (Primary Dx); Foraminal stenosis of lumbar region; Failed back syndrome Start: 10-01-2024 End: 10-03-2024 Clinisync Result Encounter Generic External Data Provider [facility] External Department Unsolicited Start: 10-01-2024 End: 10-03-2024 Clinisync Result Encounter Generic External Data Provider [...] Available Start: 04-27-2024 End: [facility] Start: 04-13-2024 End: 04-13-2024 ambulatory JOSE CRUZ [facility] Start: 04-08-2024 End: 04-08-2024 ambulatory [facility] Start: 04-02-2024 End: 04-02-2024 ambulatory [facility] Start: 03-30-2024 End: 03-30-2024 ambulatory KEIKO REBECCA [facility] Start: 03-18-2024 End: 03-18-2024 ambulatory KEIKO FERNANDEZ [facility] Start: 03-17-2024 End: 03-17-2024 ambulatory GINNY [facility] Start: 03-11-2024 End: 03-11-2024 ambulatory [facility] Start: 03-05-2024 End: 03-05-2024 ambulatory [facility] Start: 03-04-2024 End: 03-04-2024 ambulatory GUSTAVO A [facility] Start: 03-03-2024 End: 03-03-2024 ambulatory [facility] Start: 03-02-2024 End: 03-02-2024 ambulatory [facility] Start: 02-27-2024 End: 02-27-2024 ambulatory [facility] Start: 02-19-2024 End: 02-26-2024 Emergency department patient visit OVIDIO [facility] Start: 02-19-2024 End: 02-25-2024 Evaluation and management of inpatient [facility] Start: 02-19-2024 End: 02-26-2024 Emergency department patient visit [facility] Start: 02-14-2024 Non-patient / Non-visit DO David Salas Work Phone: [facility] Work Phone: Start: 02-14-2024 End: 02-17-2024 Evaluation and management of inpatient DO Gustavo Salas Work Phone: [facility] [place] [facility] Work Phone: Start: 02-10-2024 End: 02-10-2024 ambulatory [facility] Start: 02-10-2024 End: 02-10-2024 Office outpatient visit 25 minutes Jenna Engle MD Work Phone: [facility] Comment on above: Shortness of breath; 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; History of PTCA; Essential hypertension; Hyperlipidemia, mixed; Obstructive sleep apnea syndrome; BMI 35.0-35.9,adult; Current smoker; Chronic hypoxemic respiratory failure (Multi); Encounter to discuss test results Start: 02-05-2024 End: 02-05-2024 ambulatory GUSTAVO SALAS Not Available Start: 01-30-2024 End: 01-31-2024 ambulatory Renae X Orzech [facility] Start: 01-30-2024 End: 01-31-2024 ambulatory Renae X Orzech Facility:[facility] Start: 01-30-2024 End: 01-30-2024 Lab Drop off Renae X Orzech [facility] Start: 01-30-2024 End: 01-30-2024 Patient encounter procedure Renae X Orzech [facility] [place] Start: 01-27-2024 End: 01-27-2024 ambulatory [facility] Start: 01-27-2024 End: 01-27-2024 Subsequent hospital visit by physician [facility]/Vasc Room 2 [facility] Comment on above: Shortness of breath Start: 01-13-2024 ambulatory Renae Orzech Facility: [facility] Start: 01-10-2024 End: 01-10-2024 ambulatory GUSTAVO SALAS Not Available Start: 01-06-2024 End: 01-06-2024 Patient encounter procedure DO Gustavo Salas Work Phone: [facility] [place] Work Phone: Start: 01-06-2024 End: 01-06-2024 ambulatory [facility] Start: 01-06-2024 End: 01-06-2024 Office consultation new/estab patient 80 min Jenna Engle MD Work Phone: [facility] Comment on above: Shortness of breath; 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; Stage 3b chronic [...] minutes Gustavo Salas DO Work Phone: [facility] Comment on above: SOB (shortness of br [...] type (CMS/HCC) Start: 11-12-2023 Telephone encounter [facility] Start: 10-31-2023 Chart abstracting Scanning Pro vider External [facility] Start: 10-30-2023 Telephone encounter Amrit carnes [facility] Comment on above: Neuro Appt Start: 10-21-2023 End: 10-24-2023 Evaluation and management of inpatient NANCY BERRY [facility] Start: 10-18-2023 End: 10-24-2023 Evaluation and management of inpatient PAUL MCDONALD [facility] Start: 10-17-2023 End: 10-24-2023 Evaluation and management of inpatient BING TAPIA [facility] Start: 10-15-2023 End: 10-24-2023 Evaluation and management of inpatient ASHLEY MOONEY [facility] Start: 10-14-2023 End: 10-24-2023 Evaluation and management of inpatient [facility] Start: 10-10-2023 End: 10-24-2023 Evaluation and management of inpatient [facility] Start: 10-08-2023 End: 10-24-2023 Evaluation and management of inpatient NOE OSEI [facility] Start: 10-06-2023 End: 10-24-2023 Evaluation and management of inpatient SUSANA VELAZQUEZ [facility] Start: 10-06-2023 End: 10-24-2023 Evaluation and management of inpatient FRANCINE YANG [facility] Start: 10-06-2023 End: 10-24-2023 Evaluation and management of inpatient SHEILA RODRIGUEZ [facility] Start: 10-05-2023 End: 10-24-2023 Evaluation and management of inpatient RABBIA L MARIELA [facility] Start: 10-05-2023 End: 10-23-2023 Evaluation and management of inpatient ALI SAHLIEH [facility] Start: 08-17-2023 End: 08-20-2023 Evaluation and management of inpatient DO Gustavo Salas Work Phone: [facility] [place] [facility] Work Phone: Start: 07-10-2023 End: 07-14-2023 Evaluation and management of inpatient DO Gustavo Salas Work Phone: [facility] [place] [facility] Work Phone: Start: 06-17-2023 End: 06-17-2023 Emergency department patient visit DO Gustavo Salas Work Phone: [facility] Work Phone: Start: 04-01-2023 End: 04-26-2023 Patient encounter procedure Gustavo Salas DO Work Phone: [facility] Start: 01-22-2023 ambulatory MATILDAFILIPPOTOMI [facility]ICKY . Facility:[facility]1 Start: 12-27-[address] Charlie Gao II Facility:[id number] Start: 12-26-2022 End: 12-31-2022 Evaluation and management of inpatient DO Gustavo Salas Work Phone: [facility] Work Phone: Start: 11-22-2022 End: 11-22-2022 Emergency department patient visit DO Gustavo Salas Work Phone: [facility] Work Phone: Start: 05-31-2022 End: 05-31-2022 Emergency department patient visit DO Gustavo Salas Work Phone: [facility] Start: 05-03-2022 End: 05-03-2022 ambulatory Jorge A Renetta Other [facility] Other Start: 05-03-2022 Telephone encounter Jorge A Renetta [facility] Start: 04-24-2022 End: 04-24-2022 ambulatory Jorge A Renetta Other [facility] Other Start: 04-24-2022 Telephone encounter Jorge A Renetta [facility] Start: 03-12-[address] Charlie Mondragon II Facility: Start: 03-08-2022 End: 03-08-2022 ambulatory Jorge A Renetta Other [facility] Other Start: 03-08-2022 Telephone encounter Jorge A Urrutiaa [facility] Start: 01-18-2022 End: 01-18-2022 ambulatory Tanya Cesar Other [facility] Other Start: 01-18-2022 Telephone encounter Tanya Cesar [facility] Start: 10-26-2021 End: 10-26-2021 ambulatory Jorge A Renetta Other [facility] Other Start: 10-26-2021 Telephone encounter Jorge A Jackson [facility] Start: 08-02-2019 End: 08-04-2019 Evaluation and management of inpatient CRYS Calderon JABARI [facility] Start: 08-01-2019 End: 08-04-2019 Evaluation and management of inpatient Hayden Bueno Work Phone: [facility] Start: 07-03-2018 End: 07-03-2018 Patient encounter Mely Camarillo Facility:[facility] Procedures Date Procedure Procedure Detail Performing Clinician Start: 10-07-2024 Bacteria identified in Urine by Culture Generic External Data Provider Start: 10-01-2024 Bacteria identified in Urine by Culture Generic External Data Provider Start: 09-19-2024 BLOOD CULTURE 2 Generic External Data Provider Start: 09-19-2024 BLOOD CULTURE 1 Generic External Data Provider Start: 03-17-2024 Follow-up visit Follow-up CARY BELCHER Start: 02-19-2024 Cyclic citrullinated peptide antibody APURVA SIERRA Comment on above: Result Comment: Interpretation-------- <3 Negative >=3 Positive Performed By: #### E LEC #### [facility] ([id number]) [address] [place] [address], [address] [place] [address] Start: 02-16-2024 Investigation of transfusion reaction DO Gustavo Salas Work Phone: Start: 02-15-2024 Lactoferrin measurement DO Gustavo Salas Work Phone: Start: 02-15-2024 Stool culture for bacteria DO Gustavo Salas Work Phone: Start: 02-14-2024 SARS-CoV-2, Influenz a & RSV (PCR) DO Gustaov Salas Work Phone: Start: 02-14-2024 Urine culture [...] Positive Performed By: #### C BC, BMP, [id number], [id number] #### [facility] ([id number]) [address] [facility], [address] [place] [address] Start: 10-06-2023 Adult depression screening assessment Tony-Ginger Luoryan Start: 08-18-2023 Duplex scan of lower limb veins DO Gustavo Salas Work Phone: Start: 08-17-2023 CT of abdomen and pe lvis without contrast DO Gustavo Salsa Work Phone: Start: 08-17-2023 CT of chest without contrast DO Gustavo Salas Work Phone: Start: 08-17-2023 CT cervical spine wi thout contrast DO Gustavo Salas Work Phone: Start: 08-17-2023 CT of head without contrast DO Gustavo Salas Work Phone: Start: 08-17-2023 Plain x-ray of pelvi s and lower extremity DO Gustavo Salas Work Phone: Start: 08-17-2023 Plain chest X-ray DO Corwin clydeed Salas Work Phone: Start: 07-12-2023 Computed tomography [...] JABARI Start: 08-04-2019 DIET LOW FIBER CRYS BRYANT CURTIS Start: 08-04-2019 INITIATE OXYGEN THER APY PROTOCOL CRSY BARBOZA Start: 08-04-2019 Blood count complete auto&auto difrntl wbc CRYS BARBOZA Start: 08-04-2019 Blood count complete auto&auto difrntl wbc Mahmud Al Furgani Work Phone: Start: 08-03-2019 MISCELLANEOUS NURSIN G CARE ORDER (SPECIFY) CRYSRaza BARBOZA Start: 08-03-2019 Radiologic exam abdo men 1 view CRYS BARBOZA Start: 08-03-2019 INITIATE OXYGEN THER APY PROTOCOL CRYSRaza BARBOZA Start: 08-03-2019 Radiologic exam abdo men [...] Blood count complete auto&auto difrntl wbc Mahmud Duong Richardson Work Phone: Start: 08-02-2019 SPECIMEN REJECTION Mahm ud Duong Richardson Work Phone: Start: 08-02-2019 Radiologic exam abdo men 1 view CRYS BARBOZA Start: 08-02-2019 TUBE INSERTION CRYS MANNY ACEVEDO Start: 08-02-2019 Radiologic exam abdo men 1 view Marisol Kim Work Phone: Start: 08-02-2019 IP CONSULT TO GENERA L SURGERY CRYS BARBOZA Start: 08-02-2019 FULL CODE [facility]YS[facility] [place] Start: 08-02-2019 INITIATE OXYGEN THER APY [...] screening for protein Diabetes: Urine Protein Screening [facility] Start: 01-26-2025 Echocardiography Echocardiogram [facility] Start: 11-05-2024 End: 11-05-2024 Patient encounter procedure 11/05/2024 3:30 PM EST Procedure Visit [facility] [address] [place] [address] Kalyan Barboza DPM [address] [facility] [address] [place] [address] [facility] Start: 10-23-2024 Adult BMI Screening Adult BMI Screening [facility] Start: 10-13-2024 End: 10-13-2024 Patient encounter procedure 10/13/2024 2:30 PM EST Office Visit [facility] [address] [place] [phone] Gustavo Salas, DO [address] [place] [address] [facility] Start: 10-08-2024 End: 10-08-2024 Patient encounter procedure 10/08/2024 4:10 PM EST Procedure Visit [facility] [address] [facility] [facility] [address] [place] [id number] Kalyan Barboza DPM [address] [facility] [address] [place] [address] [facility] Start: 10-07-[address] [facility] Start: 10-06-2024 End: 10-06-2024 Patient encounter procedure 10/06/2024 2:30 PM EST Office Visit [facility] [address] [place] [phone] Gustavo Salas, DO [address] [place] [address] [facility] Start: 10-06-2024 Depression Screening Depression Screening [facility] Start: 10-06-2024 Tobacco Screening Tobacco Screening [facility] Start: 09-22-2024 End: 09-22-2024 Patient encounter procedure 09/22/2024 2:00 PM EST Office Visit [facility] [address] [place] [phone] Gustavo Salas, DO [address] [place] [address] [facility] Start: 06-28-2024 Influenza vaccination Influenza Vaccine (#1) [facility] Start: 04-27-2024 Screening for osteoporosis Bone Density Scan [facility] Start: 04-01-2024 Medicare Annual Wellness (AWV) Medicare Annual Wellness (AWV) [facility] Start: 02-19-2024 [facility] Start: 02-18-2024 [facility] Start: 02-17-2024 [facility] Start: 02-16-2024 Microbial culture of sputum [facility] Start: 02-14-2024 [facility] Start: 02-14-2024 Referral to Ham Facer [facility] Start: 02-14-2024 [facility] Start: 02-14-2024 Hospital admission [facility] Start: 02-14-2024 Bacteria identified in Blood by Culture [facility] Start: 02-14-2024 Bacteria identified in Urine by Culture [facility] Start: 02-14-2024 Blood culture for bacteria, including anaerobic screen Blood Culture [facility] Start: 02-14-2024 Duplex scan of lower limb veins US venous duplex LE RT [facility] Start: 02-14-2024 US Lower extremity vein - right [facility] Start: 02-10-2024 End: 02-10-2024 Patient encounter procedure 02/10/2024 12:30 PM EDT Office Visit [address] [place] [phone] Jenna Engle MD [address] [place] [address] [address] [place] [address] [facility] Start: 01-27-2024 End: 01-27-2024 Patient encounter procedure 01/27/2024 1:30 PM EDT Appointment [place] [id number] [facility] [address] [place] [address] [facility] Start: 01-10-2024 End: 01-10-2024 Patient encounter procedure 01/10/2024 2:00 PM EDT Office Visit [facility] [address] [place] [facility] [place] [address] William Gallagher MD [address], [address] [place] [address] [facility] Start: 01-06-2024 End: 01-05-2025 CBC panel - Blood by Automated count CBC Lab Routine Shortness of breath Expected: 01/06/2024 (Approximate), Expires: 01/05/2025 [facility] Work Phone: Comment on above: Expected: 01/06/2024 (Approximate), Expi res: 01/05/2025 Start: 01-06-2024 End: 01-05-2025 Comprehensive metabolic 2000 panel - Serum or Plasma Comprehensive Metabolic Panel Lab Routine Shortness of breath Expected: 01/06/2024 (Approximate), Expires: 01/05/2025 [facility] Work Phone: Comment on above: Expected: 01/06/2024 (Approximate), Expi res: 01/05/2025 Start: 01-06-2024 End: 01-05-2025 Erythrocyte sedimentation rate Sedimentation Rate Lab Routine Shortness of breath Expected: 01/06/2024 (Approximate), Expires: 01/05/2025 [facility] Work Phone: Comment on above: Expected: 01/06/2024 (Approximate), Expi res: 01/05/2025 Start: 01-06-2024 End: 01-05-2025 Natriuretic peptide B [Mass/volume] in Blood B-Type Natriuretic Peptide Lab Routine Shortness of breath Expected: 01/06/2024 (Approximate), Expires: 01/05/2025 [facility] Work Phone: Comment on above: Expected: 01/06/2024 (Approximate), Expi res: 01/05/2025 Start: 01-06-2024 End: 01-05-2026 US Heart Transthoracic Transthoracic Echo Complete Echocardiography Routine Shortness of breath Expected: 01/06/2024 (Approximate), Expires: 01/05/2026 [facility] Work Phone: Comment on above: Expected: 01/06/2024 (Approximate), Expi res: 01/05/2026 Start: 01-06-2024 End: 01-05-2025 XR Chest 2 Views XR chest 2 views Imaging Routine Shortness of breath Expected: 01/06/2024 (Approximate), Expires: 01/05/2025 [facility] Work Phone: Comment on above: Expected: 01/06/2024 (Approximate), Expi res: 01/05/2025 Start: 12-30-2023 End: 12-30-2023 Patient encounter procedure 12/30/2023 11:15 AM EST Office Visit [facility] [address] [facility] [address] [place] [id number] Gustavo Salas DO [address] [facility] [address] [place] [address] [facility] Start: 12-16-2023 End: 12-16-2023 Patient encounter procedure 12/16/2023 11:30 AM EST Office Visit [facility] [address] [place] [id number] Yovani Glover, PACookie [address] [place] [address] [facility] Start: 12-09-2023 End: 12-09-2024 Bacteria identified in Urine by Culture Urine culture (clean catch) Microbiology Routine Urinary tract bacterial infections Expected: 12/09/2023 (Approximate), Expires: 12/09/2024 [facility] Comment on above: Expected: 12/09/2023 (Approximate), Expi res: 12/09/2024 Start: 12-09-2023 End: 12-09-2024 CBC W Auto Differential panel - Blood CBC and differential Lab Routine Essential hypertension (CMS/HCC) Expected: 12/09/2023 (Approximate), Expires: 12/09/2024 [facility] Work Phone: Comment on above: Expected: 12/09/2023 (Approximate), Expi res: 12/09/2024 Start: 12-09-2023 End: 12-09-2024 Comprehensive metabolic 2000 panel - Serum or Plasma Comprehensive metabolic panel Lab Routine Essential hypertension (CMS/HCC) Expected: 12/09/2023 (Approximate), Expires: 12/09/2024 [facility] Comment on above: Expected: 12/09/2023 (Approximate), Expi res: 12/09/2024 Start: 12-09-2023 End: 12-09-2024 Magnesium [Mass/volume] in Serum or Plasma Magnesium Lab Routine Stage 3a chronic kidney disease (HCC) (CMS/HCC) Expected: 12/09/2023 (Approximate), Expires: 12/09/2024 [facility] Comment on above: Expected: 12/09/2023 (Approximate), Expi res: 12/09/2024 Start: 11-11-2023 End: 11-11-2023 Patient encounter procedure 11/11/2023 9:15 AM EST Office Visit [facility] [address] [place] [address] [address] [place] [phone] Jose Martin Galicia MD [address] [place] [address], [address] [place] [address] [facility] Start: 11-05-2023 End: 11-05-2023 Patient encounter procedure 11/05/2023 12:30 PM EST Office Visit [facility] [address] [place] [phone] Yovani Glover PA-C [address] [place], [place] [id number] [facility] Start: 08-20-2023 [facility] Start: 08-19-2023 Stool culture for bacteria Stool Culture [facility] Start: 08-18-2023 Blood chemistry [facility] Start: 08-18-2023 Duplex scan of lower limb veins US venous duplex LE BI [facility] Start: 08-18-2023 [facility] Start: 08-18-2023 Referral to [facility] Start: 08-17-2023 Hospital admission [facility] Start: 08-17-2023 Physical therapy procedure [facility] Start: 08-17-2023 Referral to occupational therapist [facility] Start: 08-17-2023 [facility] Start: 08-17-2023 Bacteria identified in Stool by Culture [facility] Start: 08-17-2023 [facility] Start: 08-17-2023 Bacteria identified in Blood by Culture [facility] Start: 08-17-2023 Blood culture for bacteria, including anaerobic screen Blood Culture [facility] Start: 07-14-2023 [facility] Start: 07-10-2023 Bacteria identified in Blood by Culture Blood Culture [facility] Start: 07-10-2023 Bacteria identified in Urine by Culture Urine Culture [facility] Start: 07-10-2023 Blood culture for bacteria, including anaerobic screen Blood Culture [facility] Start: 07-10-2023 Hospital admission [facility] Start: 02-26-2023 Hemoglobin A1c measurement Diabetes: Hemoglobin A1C [facility] Start: 12-31-2022 [facility] Start: 12-26-2022 Hospital admission [facility] Start: 12-26-2022 Referral to [facility] Start: 12-26-2022 [facility] Start: 12-26-2022 [facility] Start: 08-03-2020 Creatinine monitoring Creatinine monitoring [place], [place] Start: 08-03-2020 Potassium monitoring Potassium monitoring [place], [place] Start: 08-02-2019 Annual Wellness Visit (AWV) Annual Wellness Visit (AWV) [place] Start: 06-28-2019 Influenza vaccination Flu vaccine (#1) [place] Start: 2010 DEXA (modify frequency per FRAX score) DEXA (modify frequency per FRAX score) [place], [place] Start: 2010 Fall Risk Screening Fall Risk Screening [facility] Start: 2010 Pneumococcal 65+ years Vaccine (1 of 2 - PCV13) Pneumococcal 65+ years Vaccine (1 of 2 - PCV13) [place] Start: 1995 Administration of varicella zoster vaccine Zoster (Shingles) Vaccine (1 of 2) [facility] Start: 1995 Breast cancer screen Breast cancer screen [place], [place] Start: 1995 Colon cancer screen colonoscopy Colon cancer screen colonoscopy [place], [place] Start: 1995 Shingles Vaccine (1 of 2) Shingles Vaccine (1 of 2) [place] Start: 1995 Zoster Vaccines (1 of 2) Zoster Vaccines (1 of 2) [facility] Start: 1967 DTaP/Tdap/Td Vaccines (1 - Tdap) DTaP/Tdap/Td Vaccines (1 - Tdap) [facility] Start: 1964 DTaP,Tdap and Td Vaccines (1 - Tdap) DTaP,Tdap and Td Vaccines (1 - Tdap) [facility] Start: 1964 DTaP/Tdap/Td vaccine (1 - Tdap) DTaP/Tdap/Td vaccine (1 - Tdap) [place] Start: 1964 Urine screening for protein Diabetes: Urine Protein Screening [facility] Start: 1963 Adult BMI Follow Up Plan Adult BMI Follow Up Plan [facility] Start: 1963 Diabetes mellitus screening Diabetes Screening [facility] Start: 1963 Hepatitis C screening Hepatitis C Screening [facility] Start: 1955 Glaucoma screening Diabetes: Retinopathy Screening [facility] Start: 1955 Lipid screen Lipid screen [place], [place] Start: 1945 Creatinine measurement Creatinine Level [facility] Start: 1945 Hepatitis C screen Hepatitis C screen [place], [place] Start: 1945 Lipid panel Lipid Panel [facility] Start: 1945 Medicare Annual Wellness Visit [facility] Start: 1945 Potassium measurement Potassium Level [facility] Start: 1945 Tobacco Counseling Tobacco Counseling [facility] Anion gap measurement [facility] Bacteria identified in Urine by Culture URINE CULTURE, ROUTINE Lab Routine 10/07/2024 2:58 AM EST [facility] Basophils [#/volume] in Blood by Automated count [facility] Basophils/100 leukoc ytes in Blood by Automated count [facility] BLOOD CULTURE 1 BLOOD CULTURE 1 Lab Routine 09/19/2024 12:22 PM EST [facility] BLOOD CULTURE 2 BLOOD CULTURE 2 Lab Routine 09/19/2024 12:23 PM EST [facility] Eosinophils [#/volum e] in Blood [facility] Eosinophils/100 leukocytes in Blood by Automated count [facility] Erythrocyte distribu tion width [Ratio] by Automated count [facility] Erythrocytes [#/volu me] in Blood [facility] Hematocrit [Volume Fraction] of Blood [facility] Hemoglobin [Mass/vol ume] in Blood [facility] Initiate Oxygen Ther apy Protocol Initiate Oxygen Therapy Protocol Respiratory Care Routine Daily until discontinued starting 08/02/2019 [facility] MD Comment on above: Daily until discontinued starting 2018 Leukocytes [#/volume ] corrected for nucleated erythrocytes in Blood by Automated coun [facility] Leukocytes [#/volume ] in Blood [facility] Lymphocytes [#/volum e] in Blood by Automated count [facility] Lymphocytes/100 leukocytes in Blood by Automated count [facility] MCH [Entitic mass] b y Automated count [facility] MCHC [Mass/volume] b y Automated count [facility] MCV [Entitic volume] by Automated count [facility] Monocytes [#/volume] in Blood by Automated count [facility] Monocytes/100 leukoc ytes in Blood by Automated count [facility] Neutrophils [#/volum e] in Blood by Automated count [facility] Neutrophils/100 leukocytes in Blood by Automated count [facility] Nucleated erythrocyt es [Presence] in Blood by Automated count [facility] Patient Education [facility] Work Phone: Patient referral [facility] Work Phone: Platelet mean volume [Entitic volume] in Blood by Automated count [facility] Platelets [#/volume] in Blood [facility] End: 08-02-2019 PREVIOUS SPECIMEN PREVIOUS SPECIMEN Lab Routine Once for 1 Occurrences starting 08/02/2019 until 08/02/2019 [facility] Comment on above: Once for 1 Occurrences starting 08/02/20 19 until 08/02/2019 PREVIOUS SPECIMEN PREVIOUS SPECI MEN Lab Routine 08/02/2019 9:43 AM EDT [facility] Urinal[facility] complete panel - Urine Urinalysis with microscopic Lab Routine Urinary tract bacterial infections Stage 3a chronic kidney disease (HCC) (CMS/HCC) Ordered: 12/09/2023 [facility] Comment on above: Ordered: 12/09/2023 End: 01-27-2024 [facility] Work Phone: Comment on above: Once for 1 Occurrences starting 01/27/20 24 until 01/27/2024 Immunizations Immunization Date Immunization Notes Care Provider [facility] 09-02-2023 Influenza, High-dose , [facility] 09-02-2023 influenza virus vaccine, unspecified formulation Generic Provider [facility] 01-07-2023 SARS-COV-2 (COVID-19 ) vaccine, mRNA, spike protein, LNP, bivalent, preservative free, 30 mcg/0.3 mL dose, monserrat-sucrose formulation Gustavo Salas DO Work Phone: [facility] 12-31-2022 tuberculin skin test ; purified protein derivative solution, intradermal -Ginger [facility] 07-30-2022 influenza, high dose seasonal, preservative-free Ta-Ginger [facility] 07-30-2022 Influenza, High-dose Seasonal, Quadrivalent, Preservative Free Gustavo Salas DO Work Phone: [facility] 06-08-2021 pneumococcal polysaccharide vaccine, 23 valent [facility] 03-09-2021 COVID-19 Sofia Guerrero Other [employer] Other 02-10-2021 COVID-19 Amaraa Tanya Cesar Other [employer] Other 11-07-2020 influenza, high dose seasonal, preservative-free Ta-Ginger [facility] 11-07-2020 influenza, seasonal, injectable Jenna Engle MD Work Phone: [facility] Work Phone: 08-04-2020 Seasonal trivalent influenza vaccine, adjuvanted, preservative free Ta-Ginger [facility] 07-14-2018 influenza, high dose seasonal, preservative-free Jorge A Renetta Other [employer] Other 07-14-2018 influenza virus vaccine, unspecified formulation DO Gustavo Salas Work Phone: [facility] 07-13-2018 Influenza, High-dose , Quadrivalent [facility] 08-02-2017 influenza, high dose seasonal, preservative-free Jorge A Renetta Other [employer] Other 08-02-2017 influenza virus vaccine, unspecified formulation DO Gustavo Salas Work Phone: [facility] 08-01-2017 Influenza, High-dose , Quadrivalent Ta[employer]inger [employer] [facility] 07-26-2016 pneumococcal conjuga te vaccine, 13 valent Jorge A Renetta Other [employer] Other 07-26-2016 influenza, high dose seasonal, preservative-free Jorge A Renetta Other [employer] Other 07-26-2016 influenza virus vaccine, unspecified formulation DO Gustavo Salas Work Phone: [facility] 07-25-2016 Influenza, High-dose , Quadrivalent Ta-Ginger [employer] [facility] 08-23-2015 influenza, high dose seasonal, preservative-free Jorge A Renetta Other [facility] [employer] Other 08-23-2015 influenza virus vaccine, unspecified formulation DO Gustavo Salas Work Phone: [facility] 08-22-2015 Influenza, High-dose , Quadrivalent Ta-Ginger [employer] [facility] 10-28-2014 pneumococcal polysaccharide vaccine, 23 valent Jenna Engle MD Work Phone: [facility] Work Phone: 07-26-2014 influenza, seasonal, injectable Ta-Ginger [employer] [facility] 07-08-2014 influenza, injectabl e, quadrivalent, contains preservative Jorge A Renetta Other [facility] 09-28-2013 influenza, injectabl e, quadrivalent, contains preservative Jorge A Renetta Other [facility] 12-04-2010 pneumococcal conjuga te vaccine, 7 valent Jorge A Renetta Other [employer] Other 12-04-2010 pneumococcal Conjuga te, unspecified formulation DO Gustavo Salas Work Phone: [facility] Payers Date Payer Category Payer Medicaid [id number] 2024 Medicare (Managed Care) [facility] [id number] 2024 Unknown [id number] 2024 Self-pay [id number] 2023 Private Health Insurance [employer] DUAL COMPLETE [employer] DUAL COMPLETE [id number] 2023-Present [address] [address] [place] [address] [id number] .[id number] 2022 Medicare [id number] .[id number] 2021 Medicaid [id number] 1.13.424.2 .[id number] 2018 Medicare [id number] 2017 Private Health Insurance [id number] 2014 Medicaid [id number] 2014 Medicaid MEDICAID [facility] DEPT OF JOB xxxxxxxxxxxx 2014-Present [phone] [address] [place] [address] xxxxxxxxxxxx [id number] .[id number] 2014 Medicare [id number] 2014 Medicare MEDICARE MEDICAR E PART A AND B xxxxxxxxxxx 2014-Present [phone] [address] [address] [place] [address] xxxxxxxxxxx [id number] .7.3.758558.315 1945 Unknown [id number] 2.16.840.1.684730.3.579.2 .175 1945 Unknown [id number] 2.16.840.1.502370.3.579.2 .356 1945 Unknown [id number] 2.16.840.1.733526.3.579.2 .356 1945 Unknown [id number] 2.16.840.1.846506.3.579.2 .593 1945 Unknown [id number] 2.16.840.1.939504.3.579.2 .1244 1945 Unknown [id number] 2.16.840.1.443340.3.579.2 .1244 1945 Unknown [id number] 2.16.840.1.906907.3.579.2 .727 1945 Unknown [id number] 2.16.840.1.673251.3.579.2 .727 1945 Unknown [id number] 2.16.840.1.209096.3.579.2 .1286 1945 Unknown [id number] 2.16.840.1.305701.3.579.2 .1286 1945 Unknown [id number] 2.16.840.1.883332.3.579.2 .1286 1945 Unknown [id number] 2.16.840.1.204445.3.579.2 .1286 1945 Unknown [id number] 2.16.840.1.382933.3.579.2 .1286 1945 Unknown [id number] 2.16.840.1.367604.3.579.2 .1286 1945 Unknown [id number] 2.16.840.1.546687.3.579.2 .1286 1945 Unknown [id number] 2.16.840.1.353599.3.579.2 .1286 1945 Unknown [id number] 2.16.840.1.821977.3.579.2 .1286 1945 Unknown [id number] 2.16.840.1.015971.3.579.2 .1286 1945 Unknown [id number] 2.16.840.1.555764.3.579.2 .1286 1945 Unknown [id number] 2.16.840.1.164782.3.579.2 .1286 1945 Unknown [id number] 2.16.840.1.651687.3.579.2 .1286 1945 Unknown [id number] 2.16.840.1.880522.3.579.2 .1286 1945 Unknown [id number] 2.16.840.1.012925.3.579.2 .1286 1945 Unknown [id number] 2.16.840.1.642100.3.579.2 .1286 1945 Unknown [id number] 2.16.840.1.720728.3.579.2 .1286 1945 Unknown [id number] 2.16.840.1.346734.3.579.2 .1286 1945 Unknown [id number] 2.16.840.1.791860.3.579.2 .1286 1945 Unknown [id number] 2.16.840.1.758379.3.579.2 .1286 1945 Unknown [id number] 2.16.840.1.810058.3.579.2 .1286 1945 Unknown [id number] 2.16.840.1.111100.3.579.2 .1286 1945 Unknown [id number] 2.16.840.1.703274.3.579.2 .1285 1945 Unknown [id number] 2.16.840.1.662877.3.579.2 .128 1945 Unknown [id number] 2.16.840.1.489535.3.579.2 .128 1945 Unknown [id number] 2.16.840.1.845999.3.579.2 .6 1945 Unknown [id number] 2.16.840.1.266311.3.579.2 .1285 1945 Unknown [id number] 2.16.840.1.682769.3.579.2 .1285 1945 Unknown [id number] 2.16.840.1.627382.3.579.2 .128 1945 Unknown [id number] 2.16.840.1.559216.3.579.2 .1285 1945 Unknown [id number] 2.16.840.1.955695.3.579.2 .1285 1945 Unknown [id number] 2.16.840.1.659440.3.579.2 .1285 1945 Unknown [id number] 2.16.840.1.914805.3.579.2 .1285 1945 Unknown [id number] 2.16.840.1.781491.3.579.2 .1285 1945 Unknown [id number] 2.16.840.1.974641.3.579.2 .1285 1945 Unknown [id number] 2.16.840.1.072629.3.579.2 .1285 1945 Unknown [id number] 2.16.840.1.131379.3.579.2 .1285 1945 Unknown [id number] 2.16.840.1.922442.3.579.2 .1285 1945 Unknown [id number] 2.16.840.1.587763.3.579.2 .9 1945 Unknown [id number] 2.16.840.1.610942.3.579.2 .9 1945 Unknown [id number] 2.16.840.1.355528.3.579.2 .125 1945 Unknown [id number] 2.16.840.1.559074.3.579.2 .1258 1945 Unknown [id number] 2.16.840.1.297261.3.579.2 .1258 1945 Unknown [id number] 2.16.840.1.152762.3.579.2 .1258 1945 Unknown [id number] 2.16.840.1.097605.3.579.2 .1258 1945 Unknown [id number] 2.16.840.1.289758.3.579.2 .1258 1945 Unknown [id number] 2.16.840.1.594735.3.579.2 .1258 1945 Unknown [id number] 2.16.840.1.905096.3.579.2 .1258 1945 Unknown [id number] 2.16.840.1.503206.3.579.2 .1258 1945 Unknown [id number] 2.16.840.1.747108.3.579.2 .1246 Medicare [id number] 2.16.840.1.847343.19 Unknown [facility] 2 [id number] Unknown [id number] 2.16.840.1.016548.3.579.2 .531 Unknown [id number] 2.16840.1.106767.3.579.2 .531 Social History Date Type Detail Facility Start: 06-23-2012 End: 05-06-2024 Tobacco smoking status NHIS Former smoker [facility] Start: 12-26-2022 End: 12-08-2011 History of tobacco use Current smoker [place] End: 12-08-2011 History of tobacco use Cigarette Smoker [facility] Start: 06-23-2012 End: 04-26-2023 Alcohol intake No [place] Start: 06-23-2012 Alcohol Comment stopped 20 years Tarah horne [place], [place] Start: 1945 Sex Assigned At [facility] [place] [place] Start: 1945 Sex Assigned At Female F [facility] Start: 10-06-2023 End: 12-04-2023 Tobacco smoking status NHIS Smokes tobacco daily [facility] Start: 04-26-2023 End: 10-06-2023 Cigarettes smoked current (pack per day) - Reported 0.5 [facility] Start: 10-06-2023 End: 05-06-2024 Tobacco use and exposure Smokeless tobacco non-user [facility] Start: 10-18-2023 End: 07-23-2024 Alcohol intake Lifetime non-drinker (finding) [facility] How often to you hav e a drink containing alcohol? Never [facility] How many standard drinks containing alcohol do you have on a typical day? Patient does not drink [facility] History of tobacco use Passive smoker [facility] Start: 08-23-2023 Tobacco Comment [facility] [noted 02/25 05/19] : Former smoker ; quit date 01/26/2022 [facility] Start: 03-23-2023 Alcohol Comment caffeine 2-3 c ups/day; pepsi 2 cans/day [facility] Start: 12-27-2023 End: 02-10-2024 Exposure to SARS-CoV-2 (event) Not sure [facility] Start: 01-30-2024 Tobacco smoking status Light t obacco smoker (finding) [facility] Start: 02-10-2024 Tobacco smoking stat us NHIS Occasional tobacco smoker [facility] Work Phone: Medical Equipment Procedure Code Equipment Code Equipment Origin al Text Equipment Identifier Dates CL CLOSURE DEVIC E EXOSEAL [id number] FDA Start: 04-29-2019 CL STENT KELLY 2.75 X 23 FDA Start: 04-29-2019 Orthopaedic bone screw, non-bioabsorbable, non-sterile [id number] FDA Start: 09-02-2020 Femur nail, sterile ()[id number] FDA Start: 09-02-2020 Spiral blade ()[id number] FDA Start: 09-02-2020 CL CLOSURE DEVIC E [...] of progress towards goal: lists sent to [facility] Functional Status Date Assessment Result Facility 02-17-2024 Functional status 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 [facility] Work Phone: 02-14-2024 Functional status Patient Not at Baseline [facility] Work Phone: 01-30-2024 Functional Status N/A [facility] 08-20-2023 Functional status Patient at Baseline [facility] Work Phone: 07-14-2023 Functional status Patient at Baseline [facility] Work Phone: 12-31-2022 Functional status Patient Not at Baseline [facility] Work Phone: Mental Status Date Assessment Result Facility 02-17-2024 Cognitive function Cognitive Sta tus Patient at Baseline [facility] Work Phone: 02-14-2024 Cognitive function Cognitive Sta tus Patient at Baseline [facility] Work Phone: 08-20-2023 Cognitive function Cognitive Sta tus Patient at Baseline [facility] Work Phone: 07-14-2023 Cognitive function Cognitive Sta tus Patient at Baseline [facility] Work Phone: 12-31-2022 Cognitive function Cognitive Sta tus Patient at Baseline [facility] Work Phone: Clinical Notes 01-18-2022 to 10-06-2024 Gustavo Salas DO - 10/06/2024 2:30 PM EST Note Date & Type Note Facility 10-06-2024 History of Present illness Narrative Images from the original note were not included. Subjective Patient ID: Gera Perdue is a 78 y.o. female who presents for Hospital Follow-up. HPI Review of Systems Objective Physical Exam Assessment/Plan Problem List Items Addressed This Visit Failed back syndrome COPD (chronic obstructive pulmonary disease) ([facility]) - Primary Foraminal stenosis of lumbar region NO show documented in this encounter [facility] 02-19-[address] CHEST W CONT PROCEDURE: [...] Dima Colón MD on 02/19/2024 4:52 PM [facility] 02-16-2024 Progress note Note Date/Time February 16, 2024 12:07pm [facility] [address] [place] [address] Hospitalist Progress Note Signed Patient: Gera Perdue MR#: [id number] : 1945 Acct:[id number] Age/Sex: 78 / F Adm Date: 4 Loc: Room: [address] [place] [address] Type: ADM IN Attending Dr: Lucho Grullon [...] <Electronically signed by Lucho Grullon MD> 02/16/241911 [facility] Work Phone: 1(237) 941-441104-21-2024 Progress note Author Lucho Grullon [facility] February 16, 2024 12:09am Note Date/Time February 15, 2024 3:0 4pm [facility] [address] [place] [address] Hospitalist Progress Note Signed Patient: Gera Perdue MR#: [id number] : 1945 Acct:[id number] Age/Sex: 78 / F Adm Date: 4 Loc: Room: [address] [place] [address] Type: ADM IN Attending Dr: Lucho Grullon [...] Plan Documented By: Lucho Grullon MD 02/15/24 145 Signed By: <Electronically signed by Lucho Grullon MD> 02/16/24 0009 [facility] Work Phone: 1(819) 276-489004-20-2024 History and physical note Author Lucho Grullon [facility] February 15, 2024 12:58am Note Date/Time February 14, 2024 5:5 9pm [facility] [address] [place] [address] Hospitalist H&P Signed Patient: Gera Perdue MR#: [id number] : 1945 Acct:[id number] Age/Sex: 78 / F Adm Date: 4 Loc: Room: [address] [place] [address] Type: ADM IN Attending Dr: Lucho Grullon MD Copies to: Gustavo Salas,DO Lucho Grullon MD~ HPI DATE OF EXAMINATION: 02/14/24 HISTORY [...] care Discussed with:?the medical team, the patient [facility] Medical History Intertrochanteric fracture of left hip [...] % (Auto) 23.7 % (.) 02/14/24 11:39 Day % (Auto) 12.3 % (.) 02/14/24 11:39 Eos % (Auto) 0.4 % (.) 02/14/24 11:39 Baso % (Auto) 0.9 % (.) 02/14/24 11:39 Nucleat RBC Rel Count 0.1 /100 WBC (0-0.5) 02/14/24 11:39 Neut # (Auto) 8.5 x10E3/uL (1.8-7.7) H 02/14/24 11:39 Lymph # (Auto) 3.2 x10E3/uL (1.00-4.8) 02/14/24 11:39 Day # (Auto) 1.7 x10E3/uL (0.0-0.8) H 02/14/24 [...] pH 5.5 (5.0-9.0) 02/14/24 11:50 Ur Specific [place] 1.024 (1.001-1.030) 02/14/24 11:50 Urine Protein 30 [...] 3 Documented By: Lucho Grullon MD 02/14/24 0345 Signed By: <Electronically signed by Lucho Grullon MD> 02/15/24 0058 [facility] Work Phone: 1(443) 247-558004-15-2024 History of Present illness Narrative* Jenna Engle [...] stage IIIb 5. Patient was transferred to [facility] from [facility] for nephrology consultation for ARTURO on CKD along with hyperkalemia. This occurred in September 2023. Prior to that she had been living [facility], and has been in and out of [facility] on multiple occasions, being treated for urinary [...] smoker 01/06/2024 Frequent UTI 01/06/2024 Angina pectoris ([facility]) 12/04/2023 Coronary artery disease 12/04/2023 Dyspnea 12/04/2023 Essential hypertension 12/04/2023 Hyperlipidemia, mixed 12/04/2023 Assessment: 1. Shortness of breath Follow Up In Cardiology 2. 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 3. History of [...] call if further questions arise, Sincerely, Jenna Egnle MD [facility] Follow up : brain Maguire Attestation By signing my name below, I, [...] exam, discussion and plan. documented in [facility]Bl[facility] Work Phone: 1(479) 439-345004-15-2024 Instructions* Patient Instructions* Hoa Buck LPN - [...] ordered as needed only documented in this encounterBlanchard [facility] Work Phone: 1(753) 336-102304-04-2024 Hospital Discharge instructions Patient Education 01/30/2024 14:50:25 [...] Treatment for this condition includes: Antibiotic medicine. Dskq-pgp-zkyrqsm medicines to treat discomfort. Drinking enough water [...] Follow these instructions at home: Medicines Take odjb-hbz-zkfdkkx and prescription medicines only as told by [...] provider. Document Revised: 05/26/2021 Document Reviewed: 05/26/2021 [employer] Patient Education 2022 [employer]. 01/30/2024 14:50:24 Urinary Incontinence Urinary Incontinence Urinary [...] nerve stimulation). ?For women, using a medical researcher to prevent urine leaks. This is a [...] right after experiencing incontinence. General instructions Take ekac-kzm-jprgndp and prescription medicines only as told by [...] important. Where to find more information National [place] of Diabetes and Digestive and Kidney Diseases: www.niddk.nih.gov [employer]: www.urologyhealth.org Contact a health care [...] provider. Document Revised: 05/19/2021 Document Reviewed: 05/19/2021 [employer] Patient Education 2022 [employer]. 01/30/2024 14:50:21 Overactive Bladder, Adult Overactive Bladder, [...] your health care provider. General instructions Take xqgp-juf-zicdjbv and prescription medicines only as told by [...] provider. Document Revised: 07/03/2021 Document Reviewed: 07/03/2021 [employer] Patient Education 2022 [employer]. Follow Up Care 01/13/2024 09:25:34 With:CHIP Ponce APRN, JYOTI Vieyra, URL Address: When: Unknown Comments:pending cysto/UD [facility] Ryann 04-04-2024 Evaluation + Plan note Diagnostic Tests Pending * Urine Culture 01/30/24 [facility]03-11-2024 History of Present illness Narrative* Jenna Engle [...] have been reviewed. Reviewed extensive records from [facility].. Past Medical History: 1. Longstanding nicotine dependence with COPD, currently hypoxemic respiratory failure on oxygen. 2. Primary hypertension 3. Obstructive sleep apnea 4. Chronic kidney disease stage IIIb 5. Patient was transferred to [facility] from [facility] for nephrology consultation for ARTURO on CKD along with hyperkalemia. This occurred in September 2023. Prior to that she had been living [facility], and has been in and out of [facility] on multiple occasions, being treated for urinary [...] 2 views; Future 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 Stage 3b chronic kidney disease (CMS/HCC) Microcytic anemia History of PTCA Essential hypertension Hyperlipidemia, mixed Obstructive sleep apnea syndrome Chronic respiratory failure with hypoxia (CMS/HCC) Frequent UTI BMI 32.0-32.9,adult Cough with expectoration Current smoker 1. Shortness of breath 2. 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 3. Stage 3b chronic kidney disease (CMS/HCC) 4. Microcytic anemia 5. History of PTCA 6. Essential hypertension 7. Hyperlipidemia, mixed 8. Obstructive sleep apnea syndrome 9. Chronic respiratory failure with hypoxia (CMS/HCC) 10. Frequent UTI 11. BMI 32.0-32.9,adult 12. Cough with expectoration 13. Current smoker Patient with multiple comorbidities, atherosclerotic grayling vessel coronary artery disease and riskfactors, recent [...] to smoke. She has history of atherosclerotic grayling vessel coronary artery disease with intolerance to [...] further questions arise, Sincerely, Jenna Engle MD [facility] Scribe Attestation By signing my name [...] exam, discussion and plan. documented in this encounterBl[facility] Work Phone: 1(243) 402-759803-11-2024 Instructions* Patient Instructions* Yaquelin Garcia LPN - [...] two weeks then stop documented in this encounterBlanch[facility] Work Phone: 1(249) 970-237702-12-2024 History of Present illness Narrative* Lilliam Cheek NP - 12/09/2023 11:00 AM EST Subjective Patient ID: Gera Perdue (: 1945) is a 78 y.o. female who presents for Hospital Follow-up. HPI Pt presents and daughter present for hospital follow up. Pt was admitted to [facility] in early September for ARTURO, UTI, and sepsis. Patient was then discharged to the [facility] in [place]. Pt was released from the [facility] on 11/28/2023. She is supposed to be getting HH however the company they were r eferred to is short staffed so her family has been caring for her. Today patient has complaints of shortness of breath and bilateral leg swelling. Pt denies urinary symptoms. She is currently finishing her Levaquin as she was started on at the [facility]. Pt did also receive weeks of Daptomycin [...] TABLET BY MOUTH EVERY DAY nystatin (Mycostatin) 187761 UNIT/GM powder APPLY TOPICALLY TO THE AFFECTED [...] related osteoporosis (CMS/HCC) Atherosclerotic heart disease of grayling coronary artery without angina pectoris (CMS/HCC) Carotid [...] O:KLEPNE Isolated TBH CULTURE URINE Urine Culture Landrum Count TBH CULTURE URINE >100,000 CFU/ml TBH [...] CBC and differential Comprehensive metabolic panel Hyperlipidemia (CMS/HCC) Stage 3a chronic kidney disease (HCC) (CMS/HCC) Relevant Orders Urinalysis with microscopic Magnesium SOB (shortness of breath) - Primary Hospital discharge follow-up Other Visit Diagnoses Wheezing Urinary tract bacterial infections Relevant Orders Urinalysis with microscopic Urine culture (clean catch) Sepsis with acute renal failure without septic shock, due to unspecified organism, unspecified acute renal failure type (CMS/HCC) Medication management Patient presents today with daughter for hospital/shelter follow up. Patient was admitted to [facility] (all hospital records are in Care Everywhere and were reviewed prior to and during appt). With UTI, ARTURO and sepsis. She did receive IV antibiotics through a PICC line which has since been removed. She was discharged to the [facility] for shelter for three weeks and was discharged on11/28/2023. Patient is currently finishing oral Levaquin. Patient denies urnary symptoms or fevers today. Patient does have complaints of leg swelling and shortness of breath. Assessment does consist of wheezing and rhonchi. Daughter did bring a large bag with multiple medications that needed reviewed and sorted out. This POTATO GRADER did review each medication and compared it to the discharge summary from the [facility]. Each medication was discussed and placed in proper labeled bags to assist in the proper set up at home. Patient does have an order for HH however the company does not have enough staff. I am going to send an order to [facility] as this patient needs and requires a HH nurse, aide, secondary social studies teacher and PT. CCM will also be consulted. Patient does discuss concerns of a prolapsed bladder being apossible cause of the UTI's which this does need assessed in a timely manner. Referral sent to FRONT DESK LEAD.Advised daughter to call office within 5-7 days if she has not heard anything to address the above r eferrals. Patient is currently supposed to be taking Prednisone 20 mg a day which she has not been doing. This was given at the [facility]. Due to the wheezing and shortness of breath I advised they to 40 mg a day for 3 days and finish the rest of the 20 mg a day until finished. Patient and daughter instructed to call office with any questions or to seek ER if symptoms worsen. Patient does have an infectious disease follow up on 12/02/2023 and academic affairs vice president on 01/06/2024. Patient will return to the [...] breathing machine I will address this with [facility]. Health Maintenance Topic Date Due Diabetes: [...] follow up with labs. documented in this encounterWashington University Medical [id number] Miscellaneous Notes* Telephone Encounter - Yvonne Kelly RN - 11/12/2023 2:42 PM EST Called Alethea-Patient's daughter back after r/s hospital followup with Dr Galicia for 11-22-2023. Our office does not participate with her Mom's insurance-[facility] Dual Complete. Appt cancelled. Alethea to call her Mom's [facility] Dual Complete Customer Service to see what Ellen GUZMAN is on her plan. Alethea to call office back so we can send a referral. documented in this encounterSumma HealthCO2Nexus [facility] [id number] Telephone encounter Note* Telephone Encounter - Yvonne Kelly RN - 11/12/2023 2:42 PM EST Called Alethea-Patient's daughter back after r/s hospital followup with Dr Galicia for 11-22-2023. Our office does not participate with her Mom's insurance-[employer] Dual Complete. Appt cancelled. Alethea to call her Mom's [facility] Dual Complete Customer Service to see what Ellen GUZMAN is on her plan. Alethea to call office back so we can send a referral. [facility] [id number] Miscellaneous Notes* Telephone Encounter - Nirmala Shirley - 11/12/2023 10:18 AM EST ALETHEA IS CALLING SINCE PT TESTED POSITIVE FOR COVID. PLEASE CALL AND ADVISE ABOUT THE HOSPITAL DISCHARGE FOLLOW UP SHE CAN BE REACHED AT [phone] * Telephone Encounter - Yvonne Kelly RN - 11/12/2023 10:18 AM EST Patient is in isolation until 11-17-2023. Appt r/s with Dr Galicia for 11-22- 10:30a documented in this encounterSumma HealthCO2Nexus [facility] [id number] Telephone encounter Note* Telephone Encounter - Nirmala Shirley - 11/12/2023 10:18 AM EST ALETHEA IS CALLING SINCE PT TESTED POSITIVE FOR COVID. PLEASE CALL AND ADVISE ABOUT THE HOSPITAL DISCHARGE FOLLOW UP SHE CAN BE REACHED AT [phone] [facility] [employer] [id number] Telephone encounter Note* Telephone Encounter - Yvonne Kelly RN - 11/12/2023 10:18 AM EST Patient is in isolation until 11-17-2023. Appt r/s with Dr Galicia for 10:30a [facility] [employer] [id number] Miscellaneous Notes* Telephone Encounter - Avtar Ortega - 10/30/2023 12:37 PM EST New patient/Hospital Follow Up DX: Sleep Apnea Scheduled 01/10/24 w/ Dr. Gallagher [facility] Paperwork sent: 10/30/23. Please send paperwork to: [employer] [facility] [employer] [address] [place] [address] Ins verified (OON notification); NO WORKMAN'S COMP; NO ACCIDENT documented in this encounterWayne Hospital01-03-2024 Telephone encounter Note* Telephone Encounter - Amrit Ortega - 10/30/2023 12:37 PM EST New patient/Hospital Follow Up DX: Sleep Apnea Scheduled 01/10/24 w/ Dr. Gallagher [facility] Paperwork sent: 10/30/23. Please send paperwork to: [employer] [facility] [employer] [address] [place] [address] Ins verified (OON notification); NO WORKMAN'S COMP; NO ACCIDENT [facility]10-24-20[facility] Discharge summary Author Jesus Alberto Aquino [facility] August 20, 2023 1:32pm Note Date/Time August 20, 2023 1 :32pm [facility] [address] [place] [address] Discharge Summary Signed Patient: Gera Perdue MR#: [id number] : 1945 Acct:[id number] Age/Sex: 77 / F Adm Date: 3 Loc: Room: 0G8562-[address]: Jesus Alberto Aquino MD Copies [...] by Jesus Alberto Aquino MD> 08/20/23 1332 [facility] Work Phone: 1([phone]) 228-212810-23-2023 Progress note Author Jesus Alberto Aquino [facility] August 19, 2023 2:43pm Note Date/Time August 19, 2023 2 :43pm [facility] [address] [place] [address] Hospitalist Progress Note Signed Patient: Gera Perdue MR#: [id number] : 1945 Acct:[id number] Age/Sex: 77 / F Adm Date: 3 Loc: Room: [address] [place] [address] Type: ADM IN Attending Dr: Jesus Alberto [...] signed by Jesus Alberto Aquino MD> 08/19/231442 [facility] Work Phone: 1(674) 178-848710-22-2023 Progress note Author Jesus Alberto Aquino [facility] August 18, 2023 1:49pm Note Date/Time August 18, 2023 1 :49pm [facility] [address] [place] [address] Hospitalist Progress Note Signed Patient: Gera Perdue MR#: [id number] : 1945 Acct:[id number] Age/Sex: 77 / F Adm Date: 3 Loc: 3T Room: [address] [place] [address] Type: ADM IN Attending Dr: Jesus Alberto [...] Flush Documented By: Jesus Alberto Aquino MD 08/18/23 1348 Signed By: <Electronically signed by Jesus Alberto Aquino MD> 08/18/23 1349 [facility] Work Phone: 1(702) 650-141310-21-2023 History and physical note Author Jesus Alberto Aquino [facility] August 17, 2023 7:50pm Note Date/Time August 17, 2023 7 :50pm [facility] [address] [place] [address] Hospitalist H&P Signed Patient: Gera Perdue MR#: [id number] : 1945 Acct:[id number] Age/Sex: 77 / F Adm Date: 3 Loc: Room: [address] [place] [address] Type: ADM IN Attending Dr: Jesus Alberto [...] apnea Nephrolithiasis Pulm hypertension GERD Hypertension Dyslipidemia [facility] Medical History (Updated 08/17/23 @ 19:01 by [...] % (Auto) 7.8 % (.) 08/17/23 16:05 Day % (Auto) 5.5 % (.) 08/17/23 16:05 Eos % (Auto) 0.0 % (.) 08/17/23 16:05 Baso % (Auto) 0.2 % (.) 08/17/23 16:05 Nucleat RBC Rel Count 0.1 /100 WBC (0-0.5) 08/17/23 16:05 Neut # (Auto) 25.4 x10E3/uL (1.8-7.7) H 08/17/23 16:05 Lymph # (Auto) 2.3 x10E3/uL (1.00-4.8) 08/17/23 16:05 Day # (Auto) 1.6 x10E3/uL (0.0-0.8) H 08/17/23 [...] signed by Jesus Alberto Aquino MD> 08/17/231949 [facility] Work Phone: 1(325) 438-211210-21-2023 History and physical note Author Jesus Alberto Aquino [facility] August 17, 2023 7:50pm Note Date/Time August 17, 2023 7 :50pm [facility] [address] [place] [address] Hospitalist H&P Signed Patient: Gera Perdue MR#: [id number] : 1945 Acct:[id number] Age/Sex: 77 / F Adm Date: 3 Loc: 3T Room: [address] [place] [address] Type: ADM IN Attending Dr: Jesus Alberto Aquino MD Copies to: MD Gustavo Keen DO~ HPI DATE OF EXAMINATION: 08/17/23 HISTORY OF [...] apnea Nephrolithiasis Pulm hypertension GERD Hypertension Dyslipidemia [facility] Medical History (Updated 08/17/23 @ 19:01 by [...] % (Auto) 7.8 % (.) 08/17/23 16:05 Day % (Auto) 5.5 % (.) 08/17/23 16:05 Eos % (Auto) 0.0 % (.) 08/17/23 16:05 Baso % (Auto) 0.2 % (.) 08/17/23 16:05 Nucleat RBC Rel Count 0.1 /100 WBC (0-0.5) 08/17/23 16:05 Neut # (Auto) 25.4 x10E3/uL (1.8-7.7) H 08/17/23 16:05 Lymph # (Auto) 2.3 x10E3/uL (1.00-4.8) 08/17/23 16:05 Day # (Auto) 1.6 x10E3/uL (0.0-0.8) H 08/17/23 [...] by Jesus Alberto Aquino MD> 08/17/23 1950 [facility] Work Phone: 1(512) 676-466209-17-2023 Discharge summary Author Jolanta Mckenzie [facility] July 14, 2023 11:16am Note Date/Time July 14, 2023 11:16am [facility] [address] [place] [address] Discharge Summary Signed Patient: Gera Perdue MR#: [id number] : 1945 Acct:[id number] Age/Sex: 77 / F Adm Date: 3 Loc: Room: [address] [place] [address]: Jolanta Mckenzie MD Copies to: [...] breathing. Physical therapy wasconsulted with recommendation for shelter facility which patient is refusing understanding the [...] % (Auto) 69.9, Lymph % (Auto) 22.1, Day % (Auto) 7.3, Eos % (Auto) 0.4, Baso % (Auto) 0.3, Nucleat RBC Rel Count 0.1, Neut # (Auto) 13.5 H, Lymph # (Auto) 4.3, Day # (Auto) 1.4 H, Eos # (Auto) [...] signed by Jolanta Mckenzie MD> 07/14/23 1116 [facility] Work Phone: 1(385) 896-864609-16-2023 Progress note Author Jolanta Mckenzie [facility] July 13, 2023 1:59pm Note Date/Time July 13, 2023 10:40am [facility] [address] [place], [place] [address] Hospitalist Progress Note Signed with Ling Patient: Gera Perdue MR#: [id number] : 1945 Acct:[id number] Age/Sex: 77 / F Adm Date: 3 Loc: Room: [address] [place] [address] Type: ADM IN Attending Dr: Jolanta Mckenzie [...] but patient also on steroid. Discussed regarding shelter facility she has not decided yet. Give 1 dose of IV Lasix and resume oral Lasix from tomorrow. Addendum Documented By: Jolanta Mckenzie MD 07/13/231358 Addendum Signed By: <Electronically signed by Jolanta Mckenzie MD> 07/13/231358 Date of Service: 07/13/2023 Subjective Subjective Narrative: [...] signed by Jolanta Mckenzie MD> 07/13/23 1356 [facility] Work Phone: 1(661) 699-646909-15-2023 Progress note Author Jolanta Mckenzie [facility] July 12, 2023 3:00pm Note Date/Time July 12, 2023 2:16pm [facility] [address] [place] [address] Hospitalist Progress Note Signed with Addenda Patient: Gera Perdue MR#: [id number] : 1945 Acct:[id number] Age/Sex: 77 / F Adm Date: 3 Loc: Room: [address] [place] [address] Type: ADM IN Attending Dr: Jolanta Mckenzie [...] and switch to oral prednisone. PT recommended shelter facility which patient is refusing with plan [...] 1,000 Ml IV 07/09/24 13:59 75 mls/hr .[id number] JERILYN Administration Ceftriaxone Sodium 1 gm in [...] signed by Jolanta Mckenzie MD> 07/12/23 1457 [facility] Work Phone: 1(487) 953-174809-14-2023 Progress note Author Jolanta Mckenzie [facility] July 11, 2023 12:47pm Note Date/Time July 11, 2023 10:10am [facility] [address] [place] [address] Hospitalist Progress Note Signed with Addenda Patient: Gera Perdue MR#: [id number] : 1945 Acct:[id number] Age/Sex: 77 / F Adm Date: 3 Loc: Room: [address] [place] [address] Type: ADM IN Attending Dr: Jolanta Mckenzie [...] 1,000 Ml IV 07/09/24 13:59 75 mls/hr .[id number] JERILYN Administration Ceftriaxone Sodium 1 gm in [...] signed by Jolanta Mckenzie MD> 07/11/23 1246 [facility] Work Phone: 1([phone]) 162-743709-13-2023 History and physical note Author Jolanta Mckenzie [facility] July 10, 2023 1:50pm Note Date/Time July 10, 2023 1:44pm [facility] [address] [place] [address] Hospitalist H&P Signed Patient: Gera Perdue MR#: [id number] : 1945 Acct:[id number] Age/Sex: 77 / F Adm Date: 3 Loc: Room: [address] [place] [address] Type: ADM IN Attending Dr: Jolanta Mckenzie MD Copies to: Gustavo Salas,DO Jolanta Mckenzie MD~ HPI DATE OF EXAMINATION: 07/10/23 CHIEF [...] negative unless noted below or in HPI [facility] Medical History Arthritis COPD (chronic obstructive pulmonary [...] % (Auto) 31.5 % (.) 07/10/23 08:44 Day % (Auto) 6.5 % (.) 07/10/23 08:44 Eos % (Auto) 0.4 % (.) 07/10/23 08:44 Baso % (Auto) 0.2 % (.) 07/10/23 08:44 Nucleat RBC Rel Count 0.1 /100 WBC (0-0.5) 07/10/23 08:44 Neut # (Auto) 13.1 x10E3/uL (1.8-7.7) H 07/10/23 08:44 Lymph # (Auto) 6.7 x10E3/uL (1.00-4.8) H 07/10/23 08:44 Day # (Auto) 1.4 x10E3/uL (0.0-0.8) H 07/10/23 [...] pH 8.5 (5.0-9.0) 07/10/23 08:44 Ur Specific [place] 1.022 (1.001-1.030) 07/10/23 08:44 Urine Protein 30 [...] signed by Jolanta Mckenzie MD> 07/10/23 1350 [facility] Work Phone: 1([phone]) 457-257303-06-2023 Discharge summary Author Jesus Alberto Aquino [facility] December 31, 2022 3:43pm Note Date/Time December 31, 2022 11:5 7am [facility] [address] [place] [address] Discharge Summary Signed Patient: Gera Perdue MR#: [id number] : 1945 Acct:[id number] Age/Sex: 77 / F Adm Date: 3 Loc: 4N Room: 1F5584-[address]: Jesus Alberto Aquino MD Copies [...] complications occurred, and patient was discharged to shelter facility in stable condition on December 31. [...] % (Auto) N/A, Lymph % (Auto) N/A, Day % (Auto) N/A, Eos % (Auto) N/A, Baso % (Auto) N/A, Nucleat RBC Rel Count N/A, Neut # (Auto) N/A, Lymph # (Auto) N/A, Day # (Auto) N/A, Eos # (Auto) N/A, [...] by Jesus Alberto Aquino MD> 12/31/22 154 [facility] Work Phone: 1(206) 315-345603-05-2023 Progress note Author Carla Hagan [facility] December 30, 2022 9:53am Note Date/Time December 30, 2022 9:53 am [facility] [address] [place] [address] Hospitalist Progress Note Signed Patient: Gera Perdue MR#: [id number] : 1945 Acct:[id number] Age/Sex: 77 / F Adm Date: 3 Loc: 4N Room: 1L6064-6 Type: ADM IN Attending Dr: Carla Hagan [...] place, time and person. Morbidly obese HEENT: [place] conjunctiva and NL buccal mucosa Neck: Supple, [...] anemia Plan is to discharge patient to shelter unit for short period of time for [...] signed by Carla Hagan MD> 12/30/22 0953 [facility] Work Phone: 1(746) 900-573103-04-2023 Progress note Author Crala Hagan [facility] December 29, 2022 10:00am Note Date/Time December 29, 2022 10:0 0am [facility] [address] [place] [address] Hospitalist Progress Note Signed Patient: Gera Perdue MR#: [id number] : 1945 Acct:[id number] Age/Sex: 77 / F Adm Date: 3 Loc: 4N Room: [address] [place] [address] Type: ADM IN Attending Dr: Calra Hagan MD Copies to: ~ Date of [...] place, time and person. Morbidly obese HEENT: [place]ai[place] conjunctiva and NL buccal mucosa Neck: Supple, [...] 5 Mg Tablet PO 12/27/23 08:59 DAILY [facility] Metoprolol Succinate 50 mg 12/27/22 09:00 12/29/22 [...] signed by Carla Hagan MD> 12/29/22 1000 [facility] Work Phone: 1(839) 209-492203-03-2023 Progress note Author Carla Hagan [facility] December 28, 2022 11:14am Note Date/Time December 28, 2022 9:27 am [facility] [address] [place] [address] Hospitalist Progress Note Signed Patient: Gera Perdue MR#: [id number] : 1945 Acct:[id number] Age/Sex: 77 / F Adm Date: 3 Loc: Room: [address] [place] [address] Type: ADM IN Attending Dr: Carla Hagan [...] any cardiac arrhythmia.? Patient will likely require shelter facility on discharge. Patient is medically cleared for discharge pending placement approval. The patient would likely need to have additional work-up, investigation and therapeutic intervention but will be determined based on the clinical progression and follow-up test result Documented By: Carla Hagan MD 12/28/22 0918 Signed By: <Electronically signed by Carla Hagan MD> 12/28/22 1114 <Electronically signed by DO SEAN Armas> 12/28/22 1046 [facility] Work Phone: 1(879) 978-805503-02-2023 Progress note Author Carla Hagan [facility] December 27, 2022 12:40pm Note Date/Time December 27, 2022 9:25 am [facility] [address] [place] [address] Hospitalist Progress Note Signed Patient: Gera Perdue MR#: [id number] : 1945 Acct:[id number] Age/Sex: 77 / F Adm Date: 3 Loc: 4N Room: 4Z5178-0 Type: ADM IN Attending Dr: Carla Hagan [...] 300 Mg Tab.Er.24h PO 12/27/23 08:59 QAM [facility] Calcium Carbonate 600 mg 12/27/22 09:00 Calcium Carbonate 500 Mg Tablet PO 12/27/23 08:59 DAILY [facility] Clopidogrel Bisulfate 75 mg 12/27/22 09:00 Clopidogrel Bisulfate 75 Mg Tablet PO 12/27/23 08:59 DAILY [facility] Heparin Sodium (Porcine) 5,000 unit 12/27/22 06:00 12/27/22 06:14 Heparin 5,000 Unit/Ml Vial SUBCUT 12/27/23 05:59 5,000 unit Q8HR JERILYN Administration Hydromorphone HCl 0.5 mg 12/27/22 03:58 Hydromorphone 0.5 Mg/0.5 Ml Syringe IV-PUSH Q4H PRN Pain Scale 8 - 10 Lisinopril 5 mg 12/27/22 09:00 Lisinopril 5 Mg Tablet PO 12/27/23 08:59 DAILY [facility] Metoprolol Succinate 50 mg 12/27/22 09:00 Metoprolol Succinate 50 Mg Tab.Er.24h PO 12/27/23 08:59 DAILY [facility] Nicotine 1 each 12/27/22 00:30 12/27/22 [...] 40 Mg Tablet. PO 12/27/23 08:59 DAILY [facility] Paroxetine HCl 40 mg 12/27/22 09:00 [...] Syringe IV-PUSH 12/27/23 05:59 10 ml QSHIFT [facility] Administration Tramadol HCl 50 mg 12/26/22 23:41 12/27/22 06:14 Tramadol 50 Mg Tablet PO 06/24/23 23:40 50 mg Q6H PRN Administration Pain Scale 4 - 7 Triamcinolone Acetonide 1 applic 12/27/22 09:00 Triamcinolone 0.1% Cream 15 Gm Tube TOPICAL 12/27/23 08:59 BID [facility] Vitamin D 50 mcg 12/27/22 09:00 Cholecalciferol 25 Mcg (1,000 Units) Tablet PO 12/27/23 08:59 DAILY [facility] A&P - Hospitalist Assessment/Plan (1) Fall: [...] any cardiac arrhythmia.? Patient will likely require shelter facility on discharge. Documented By: Carla Hagan MD 12/27/22 0857 Signed By: <Electronically signed by Carla Hagan MD> 12/27/22 1240 <Electronically signed by DO SEAN Armas> 12/27/22 4042 [facility] Work Phone: 1(703) 912-295103-02-2023 History and physical note Author Jolanta Mckenzie [facility] December 27, 2022 12:32am Note Date/Time December 26, 2022 11:0 5pm [facility] [address] [place] [address] Hospitalist H&P Signed with Addenda Patient: Gera Perdue MR#: [id number] : 1945 Acct:[id number] Age/Sex: 77 / F Adm Date: 3 Loc: 4N Room: [address] [place] [address] Type: ADM IN Attending Dr: Jolanta Mckenzie MD Copies to: GustavoDO Jolanta Agustin MD~ ADDENDUM2 List of allergies include aspirin [...] any cardiac arrhythmia. Patient will likely require shelter facility on discharge. Addendum Documented By: Jolanta [...] to adequately care for self. Home health givesDaneolyn a bath on Saturday and . Otherwise, [...] % (Auto) 24.8 % (.) 12/26/22 19:36 Day % (Auto) 10.1 % (.) 12/26/22 19:36 Eos % (Auto) 1.1 % (.) 12/26/22 19:36 Baso % (Auto) 0.5 % (.) 12/26/22 19:36 Nucleat RBC Rel Count 0.1 /100 WBC (0-0.5) 12/26/22 19:36 Neut # (Auto) 7.6 x10E3/uL (1.8-7.7) 12/26/22 19:36 Lymph # (Auto) 3.0 x10E3/uL (1.00-4.8) 12/26/22 19:36 Day # (Auto) 1.2 x10E3/uL (0.0-0.8) H 12/26/22 [...] By: <Electronically signed by Jolanta Mckenzie MD> 12/27/226 <Electronically signed by MD SEAN Mann> 12/27/2221 [facility] Work Phone: 1([phone]) 613-228507-01-2022 NoteHISTORY: Bone density screening. COMPARISON: 08/03/2020 PROCEDURE: [...] and signed by Edgar Hooper on 05/01/2022 [facility] [id number] Evaluation note* Encounter Date Diagnosis Assessment Notes Treatment Notes Treatment Clinical Notes Mar, Major depressive disorder, recurrent severe without psychotic features (ICD-10 - F33.2) [facility] Other 03-24-2022 Evaluation note* Encounter Date Diagnosis Assessment Notes Treatment Notes Treatment Clinical Notes Dec, GERD (gastroesophageal reflux disease) (ICD-10 - K21.9) [facility] Other Discharge summary Author Jesus Alberto Aquino [facility] December 31, 2022 3:43pm Note Date/Time December 31, 2022 11:5 7am [facility] [address] [place] [address] Discharge Summary Signed Patient: Gera Perdue MR#: [id number] : 1945 Acct:[id number] Age/Sex: 77 / F Adm Date: 3 Loc: Room: [address] [place] [address]: Jesus Alberto Aquino MD Copies [...] complications occurred, and patient was discharged to shelter facility in stable condition on December 31. [...] % (Auto) N/A, Lymph % (Auto) N/A, Day % (Auto) N/A, Eos % (Auto) N/A, Baso % (Auto) N/A, Nucleat RBC Rel Count N/A, Neut # (Auto) N/A, Lymph # (Auto) N/A, Day # (Auto) N/A, Eos # (Auto) N/A, [...] by Jesus Alberto Aquino MD> 12/31/22 1543 [facility] Work Phone: Discharge summary Author Jolanta Mckenzie [facility] July 14, 2023 11:16am Note Date/Time July 14, 2023 11:16am [facility] [address] [place] [address] Discharge Summary Signed Patient: Gera Perdue MR#: [id number] : 1945 Acct:[id number] Age/Sex: 77 / F Adm Date: 3 Loc: Room: [address] [place] [address]: Jolanta Mckenzie MD Copies to: [...] breathing. Physical therapy wasconsulted with recommendation for shelter facility which patient is refusing understanding the [...] % (Auto) 69.9, Lymph % (Auto) 22.1, Day % (Auto) 7.3, Eos % (Auto) 0.4, Baso % (Auto) 0.3, Nucleat RBC Rel Count 0.1, Neut # (Auto) 13.5 H, Lymph # (Auto) 4.3, Day # (Auto) 1.4 H, Eos # (Auto) [...] <Electronically signed by Jolanta Mckenzie MD> 07/14/[address] [place] [address] Ctr Work Phone: Discharge summary Author Michoacano Mckenzie [facility] February 17, 2024 4:57pm Note Date/Time February 17, 2024 4:4 6pm [facility] [address] [place], [place] [address] Discharge Summary Signed Patient: Gera Perdue MR#: [id number] : 1945 Acct:[id number] Age/Sex: 78 / F Adm Date: 4 Loc: Room: [address] [place] [address]: Michoacano Mckenzie MD Copies to: [...] by physical and Occupational Therapy, who recommended shelter placement. Patient was very adamant that she [...] signed by Michoacano Mckenzie MD> 02/17/24 1657 [facility] Work Phone: evaluation noteNo InformationNort [employer] Other evaluation noteNo assessment information available [facility] Work Phone: evaluation note* Diagnosis Onset Date Resolution Status Accidental fall acute Head injury acute Inability to perform activities of daily living acute [facility] Work Phone: evaluation note* Diagnosis Onset Date Resolution Status Accidental fall acute Acute hip pain acute Fall acute Head injury acute Inability to perform activities of daily living acute Physical deconditioning acut e [facility] Work Phone: Evaluation note* Diagnosis Onset Date Resolution Status Acute exacerbation of chroni c obstructive pulmonary disease acute CAD (coronary artery disease) acute Closed head injury acute Contusion of hip acute Fall acute Umbilical hernia acute UTI (urinary tract infection) acute [facility] Work Phone: Evaluation note* Diagnosis Onset Date Resolution Status Acute exacerbation of chroni c obstructive pulmonary disease acute CAD (coronary artery disease) acute Closed head injury acute Contusion of hip acute Fall acute Umbilical hernia acute UTI (urinary tract infection) acute Acute UTI acute ARTURO (acute kidney injury) ac [place] Weakness acute [facility] Work Phone: Evaluation note* Diagnosis SOB [...] bladder prolapse Pulmonary emphysema, unspecified emphysema type ([facility]) documented in this encounter [facility] HealthcareEvaluation note* Diagnosis Shortness of breath 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 Stage 3b chronic [...] Cough Current smoker documented in this encounter [facility] Work Phone: Evaluation note* Diagnosis Shortness of breath documented in this encounter [facility] Work Phone: Evaluation note* Diagnosis Shortness of breath 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 History of PTCA Postsurgical percutaneous transluminal coronary angioplasty status Essential hypertension Unspecified essential hypertension Hyperlipidemia, mixed Mixed hyperlipidemia Obstructive sleep apnea syndrome Obstructive sleep apnea (adult) (pediatric) BMI 35.0-35.9,adult Current smoker Chronic hypoxemic respiratory failure (Multi) Chronic respiratory failure Encounter to discuss test results Other specified counseling documented in this encounter [facility] Work Phone: Evaluation note* Diagnosis Onset Date Resolution Status Nausea and vomiting acute Pneumonia acute UTI (urinary tract infection) [facility] Work Phone: Evaluation note* Diagnosis Onset Date Resolution Status CAD (coronary artery disease) acute GERD (gastroesophageal reflux disease) acute Nausea and vomiting acute Pneumonia acute UTI (urinary tract infection) acute COPD (chronic obstructive pulmonary disease) chronic [facility] Work Phone: Evaluation note* Diagnosis Panlobular emphysema (CMS/HCC)- Primary Other emphysema Stage 3a chronic kidney disease (HCC) ([facility]/HCC) Atherosclerosis of grayling coronary 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 (CMS/HCC) Mixed hyperlipidemia ([facility]/HCC) Mixed hyperlipidemia Failed back surgical syndrome Primary osteoarthritis of left knee Essential hypertension ([facility]) Unspecified essential hypertension Medicare annual wellness visit, subsequent ACP (advance care planning) Other specified counseling Centrilobular emphysema ([facility]/HCC)- Primary Foraminal stenosis of lumbar region Failed back syndrome Other unspecified back disorder Right Achilles tendinitis- Primary Other specified disorders of synovium, left ankle and foot Venous insufficiency Unspecified venous (peripheral) insufficiency Onychomycosis Dermatophytosis of nail Toe pain, left Pain in soft tissues of limb Toe pain, right Pain in soft tissues of limb documented in this encounter [facility] HealthcareHistory and physical note Author Jolanta Mckenzie [facility] December 27, 2022 12:32am Note Date/Time December 26, 2022 11:0 5pm [facility] [address] [place] [address] Hospitalist H&P Signed with Addenda Patient: Gera Perdue MR#: [id number] : 1945 Acct:[id number] Age/Sex: 77 / F Adm Date: 3 Loc: Room: 7P2210-7 Type: ADM IN Attending Dr: Jolanta Mckenzie [...] any cardiac arrhythmia. Patient will likely require shelter facility on discharge. Addendum Documented By: Jolanta [...] % (Auto) 24.8 % (.) 12/26/22 19:36 Day % (Auto) 10.1 % (.) 12/26/22 19:36 Eos % (Auto) 1.1 % (.) 12/26/22 19:36 Baso % (Auto) 0.5 % (.) 12/26/22 19:36 Nucleat RBC Rel Count 0.1 /100 WBC (0-0.5) 12/26/22 19:36 Neut # (Auto) 7.6 x10E3/uL (1.8-7.7) 12/26/22 19:36 Lymph # (Auto) 3.0 x10E3/uL (1.00-4.8) 12/26/22 19:36 Day # (Auto) 1.2 x10E3/uL (0.0-0.8) H 12/26/22 [...] By: <Electronically signed by Jolanta Mckenzie MD> 12/27/226 <Electronically signed by MD SEAN Mann> 12/27/22 0022 [facility] Work Phone: History and physical note Author Jolanta Mckenzie [facility] July 10, 2023 1:50pm Note Date/Time July 10, 2023 1:44pm [facility] [address] [place] [address] Hospitalist H&P Signed Patient: Gera Perdue MR#: [id number] : 1945 Acct:[id number] Age/Sex: 77 / F Adm Date: 3 Loc: Room: [address] [place] [address] Type: ADM IN Attending Dr: Jolanta Mckenzie [...] negative unless noted below or in HPI [facility] Medical History Arthritis COPD (chronic obstructive pulmonary [...] % (Auto) 31.5 % (.) 07/10/23 08:44 Day % (Auto) 6.5 % (.) 07/10/23 08:44 Eos % (Auto) 0.4 % (.) 07/10/23 08:44 Baso % (Auto) 0.2 % (.) 07/10/23 08:44 Nucleat RBC Rel Count 0.1 /100 WBC (0-0.5) 07/10/23 08:44 Neut # (Auto) 13.1 x10E3/uL (1.8-7.7) H 07/10/23 08:44 Lymph # (Auto) 6.7 x10E3/uL (1.00-4.8) H 07/10/23 08:44 Day # (Auto) 1.4 x10E3/uL (0.0-0.8) H 07/10/23 [...] pH 8.5 (5.0-9.0) 07/10/23 08:44 Ur Specific [place] 1.022 (1.001-1.030) 07/10/23 08:44 Urine Protein 30 [...] signed by Jolanta Mckenzie MD> 07/10/23 1350 [facility] Work Phone: History general Narrative [...] diverticulosis, >10cm removed. no anastamosis Dr Fonseca, [facility]. Surgical History EGD Surgical History colostomy 01/07 per [facility] Surgical History Bowel resection with reversal o f colostomy 02-25-2015 Surgical History SKIN BIOPSY X 2 ON FACE 6 Surgical History left IM nailing 09-02-20 Surgical History left hip FX 10/2020 Hospitalization History 6 child births Hospitalization History See Above Hospitalization History Kidney stones [facility] bowel obstruction 10/2019 Hospitalization History Fell/ UTI Hospitalization History [facility] pt fell left hip fr acture 10/2020 [facility] Other Hospital course Narrative No data available for this section [facility] Hospital Discharge instructions Additional Instructions Use the albuterol inhaler as prescribed here COPD exacerbation take prednisone as prescribed. Take Tylenol as needed for hip pain. Follow-up with your PCP for reevaluation in 5 to 7 days.[facility] Work Phone: Hospital Discharge instructions [...] fall precautions Care to be managed by [facility] Work Phone: Hospital Discharge instructionsAmbulatory [...] wraps to BLE. Change daily and prn -[facility] Work Phone: Hospital Discharge instructions [...] fall precautions Care to be managed by [facility] Work Phone: Hospital Discharge instructions No data available for this section [facility] filedocumented in this encounter [facility] filed[facility]ed in this encounter [facility]Not on filedocumented in this encounter [facility]Not on filedocumented in this encounter [facility] note Author Carla Hagan [facility] December 27, 2022 12:40pm Note Date/Time December 27, 2022 9:25 am [facility] [address] [place] [address] Hospitalist Progress Note Signed Patient: Gera Perdue MR#: [id number] : 1945 Acct:[id number] Age/Sex: 77 / F Adm Date: 3 Loc: 4N Room: [id number] Type: ADM IN Attending Dr: Carla Hagan [...] 3 Ml Ampul.Neb INHALATION 12/27/23 08:59 BID [facility] Atorvastatin Calcium 40 mg 12/27/22 21:00 Atorvastatin 40 Mg Tablet PO 12/27/23 20:59 QPM JERILY[facility] Budesonide 0.5 mg 12/27/22 06:00 Budesonide 0.5 Mg/2 Ml Ampul.Neb INHALATION 12/27/23 05:59 BID@0600,1800 [facility] Bupropion HCl 300 mg 12/27/22 09:00 Bupropion 300 Mg Tab.Er.24h PO 12/27/23 08:59 QAM [facility] Calcium Carbonate 600 mg 12/27/22 09:00 Calcium Carbonate 500 Mg Tablet PO 12/27/23 08:59 DAILY [facility] Clopidogrel Bisulfate 75 mg 12/27/22 09:00 Clopidogrel Bisulfate 75 Mg Tablet PO 12/27/23 08:59 DAILY [facility] Heparin Sodium (Porcine) 5,000 unit 12/27/22 06:00 12/27/22 06:14 Heparin 5,000 Unit/Ml Vial SUBCUT 12/27/23 05:59 5,000 unit Q8HR [facility] Administration Hydromorphone HCl 0.5 mg 12/27/22 03:58 Hydromorphone 0.5 Mg/0.5 Ml Syringe IV-PUSH Q4H PRN Pain Scale 8 - 10 Lisinopril 5 mg 12/27/22 09:00 Lisinopril 5 Mg Tablet PO 12/27/23 08:59 DAILY [facility] Metoprolol Succinate 50 mg 12/27/22 09:00 Metoprolol Succinate 50 Mg Tab.Er.24h PO 12/27/23 08:59 DAILY [facility] Nicotine 1 each 12/27/22 00:30 12/27/22 00:48 Nicotine Patch 14 Mg/24hr 1 Each Patch.Td24 TRANSDERML 01/08/23 09:01 1 each DAILY [facility] Administration Nystatin 1 applic 12/27/22 00:30 12/27/22 00:48 Nystatin 100,000 Unit/Gram Powder 15 Gm Bottle TOPICAL 12/27/23 00:29 1 applic BID [facility] Administration Ondansetron HCl 4 mg 12/26/22 23:41 Ondansetron 4 Mg/2 Ml Vial IV-PUSH 12/26/23 23:40 Q8H PRN Nausea And Vomiting Pantoprazole Sodium 40 mg 12/27/22 09:00 Pantoprazole 40 Mg Tablet. PO 12/27/23 08:59 DAILY [facility] Paroxetine HCl 40 mg 12/27/22 09:00 Paroxetine 20 Mg Tablet PO 12/27/23 08:59 QAM [facility] Pregabalin 75 mg 12/27/22 09:00 Pregabalin 75 Mg Capsule PO 06/25/23 08:59 BID JERIYLN Sodium Chloride 0 ml 12/26/22 19:02 12/26/22 [...] 15 Gm Tube TOPICAL 12/27/23 08:59 BID [facility] Vitamin D 50 mcg 12/27/22 09:00 Cholecalciferol 25 Mcg (1,000 Units) Tablet PO 12/27/23 08:59 DAILY [facility] A&P - Hospitalist Assessment/Plan (1) Fall: [...] any cardiac arrhythmia.? Patient will likely require shelter facility on discharge. Documented By: Carla Hagan MD 12/27/22 4662 Signed By: <Electronically signed by Carla Hagan MD> 12/27/22 1240 <Electronically signed by DO SEAN Armas> 12/27/22 1134 [facility] Work Phone: Progress note Author Carla Hagan [facility] December 28, 2022 11:14am Note Date/Time December 28, 2022 9:27 am [facility] [address] [place] [address] Hospitalist Progress Note Signed Patient: Gera Perdue MR#: [id number] : 1945 Acct:[id number] Age/Sex: 77 / F Adm Date: 3 Loc: 4N Room: [address] [place] [address] Type: ADM IN Attending Dr: Carla Hagan [...] severe pulmonary hypertension as [place] done in 2020.? Patient brought to the [...] any cardiac arrhythmia.? Patient will likely require shelter facility on discharge. Patient is medically cleared for discharge pending placement approval. The patient would likely need to have additional work-up, investigation and therapeutic intervention but will be determined based on the clinical progression and follow-up test result Documented By: Carla aHgan MD 12/28/22 0918 Signed By: <Electronically signed by Carla Hagan MD> 12/28/22 1114 <Electronically signed by DO SEAN Armas> 12/28/22 1048 [facility] Work Phone: Progress note Author Carla Hagan [facility] December 29, 2022 10:00am Note Date/Time December 29, 2022 10:0 0am [facility] [address] [place] [address] Hospitalist Progress Note Signed Patient: Gera Perdue MR#: [id number] : 1945 Acct:[id number] Age/Sex: 77 / F Adm Date: 3 Loc: 4N Room: [address] [place] [address] Type: ADM IN Attending Dr: Carla Hagan [...] place, time and person. Morbidly obese HEENT: [place] conjunctiva and NL buccal mucosa Neck: Supple, [...] 5 Mg Tablet PO 12/27/23 08:59 DAILY [facility] Metoprolol Succinate 50 mg 12/27/22 09:00 12/29/22 [...] signed by Carla Hagan MD> 12/29/22 1000 [facility] Work Phone: Progress note Author Carla Hagan [facility] December 30, 2022 9:53am Note Date/Time December 30, 2022 9:53 am [facility] [address] [place] [address] Hospitalist Progress Note Signed Patient: Gera Perdue MR#: [id number] : 1945 Acct:[id number] Age/Sex: 77 / F Adm Date: 3 Loc: Room: [address] [place] [address] Type: ADM IN Attending Dr: Carla Hagan [...] place, time and person. Morbidly obese HEENT: [place] conjunctiva and NL buccal mucosa Neck: Supple, [...] 2020 L intertrochanteric fx repair, left leg pain, [...] anemia Plan is to discharge patient to shelter unit for short period of time for [...] setting Documented By: Carla Hagan MD 12/30/22 0260 Signed By: <Electronically signed by Carla Hagan MD> 12/30/22 7985 [facility] Work Phone: Progress note Author Jolanta Mckenzie [facility] July 11, 2023 12:47pm Note Date/Time July 11, 2023 10:10am [facility] [address] [place], [place] [address] Hospitalist Progress Note Signed with Ling Patient: Gera Perdue MR#: [id number] : 1945 Acct:[id number] Age/Sex: 77 / F Adm Date: 3 Loc: 3T Room: [address] [place] [address] Type: ADM IN Attending Dr: Jolanta Mckenzie [...] 1,000 Ml IV 07/09/24 13:59 75 mls/hr .[id number] JERILYN Administration Ceftriaxone Sodium 1 gm in [...] signed by Jolanta Mckenzie MD> 07/11/23 1246 [facility] Work Phone: Progress note Author Jolanta Mckenzie [facility] July 12, 2023 3:00pm Note Date/Time July 12, 2023 2:16pm [facility] [address] [place] [address] Hospitalist Progress Note Signed with Addenda Patient: Gera Perdue MR#: [id number] : 1945 Acct:[id number] Age/Sex: 77 / F Adm Date: 3 Loc: Room: [address] [place] [address] Type: ADM IN Attending Dr: Jolanta cMkenzie MD Copies to: ~ ADDENDUM1 Patient was [...] and switch to oral prednisone. PT recommended shelter facility which patient is refusing with plan [...] 1,000 Ml IV 07/09/24 13:59 75 mls/hr .[id number] JERILYN Administration Ceftriaxone Sodium 1 gm in [...] signed by Jolanta Mckenzie MD> 07/12/23 1457 [facility] Work Phone: Progress note Author Jolanta Mckenzie [facility] July 13, 2023 1:59pm Note Date/Time July 13, 2023 10:40am [facility] [address] [place] [address] Hospitalist Progress Note Signed with Addenda Patient: Gera Perdue MR#: [id number] : 1945 Acct:[id number] Age/Sex: 77 / F Adm Date: 3 Loc: Room: [address] [place] [address] Type: ADM IN Attending Dr: Jolanta Mckenzie [...] but patient also on steroid. Discussed regarding shelter facility she has not decided yet. Give [...] signed by Jolanta Mckenzie MD> 07/13/23 1356 [facility] Work Phone: Progress note No data available for this section [facility]ann Summary Purpose Family History Relationship Condition Age at Onset Recorded Date/T [...] ronary artery bypass graft Unknown Advance Directives Documents on File Type Date Recorded Patient Telecom Manager Expl anation Advance Directives and Living Will Power of Machine Clothing Worker Latest Code Status on File Code Status Date Activated Date Inactivated Comments Full Code 08/02/2019 12:07 AM Advance Directive Response Recorded Date/ Time Advance Directives Yes May 13 2:57pm Advance Directive Response Recorded Date/ Time Advance Directives Yes May 13 1:57pm Documents on File Type Date Recorded Patient Telecom Manager Expl anation DNR Physician Order 10/29/2023 8:25 AM Durable Power of Machine Clothing Worker 10/29/2023 6:51 AM Latest Code Status on File Code Status Date Activated Date Inactivated Comments DNR Comfort Care Arrest (DNR -CCA) [place] 10/11/2023 11:48 AM 10/23/2023 1:09 PM Code Status History Code Status Date Activated Date Inactivated Comments Full Code 10/05/2023 8:00 PM 10/11/2023 11:48 AM Hospital Course * Ellen Gonzalez MD - 08/04/2019 1:39 PM EDT [facility] IN-PATIENT SERVICE [facility] Discharge Summary Patient ID: Gera Perdue : 1945 ACCOUNT: [id number] Patient's PCP: Physician Generic (Inactive) Admit Date: [...] Assisted Dressing Assisted Toileting Assisted Feeding Independent Backup Engineer Independent Med Delivery whole Wound Care Documentation [...] applicable) Name: Address: Dialysis Schedule: Phone: Fax: Tool Builder/Bookkeepers Supervisor signature: {Esignature:[id number]} PHYSICIAN SECTION Prognosis: Good Condition at Discharge: [...] sent through Care Everywhere. * Low-Fiber Diet (Estonian) documented in this encounter History of Present Illness * Eleln Gonzalez MD - 08/04/2019 10:03 AM EDT [facility] IN-PATIENT SERVICE [facility] Progress Note 08/04/2019 10:03 AM Name: Gera Perdue Acct: [id number] Room: [address] [place] [address] Day: 3 Admit Date: 08/01/2019 11:58 PM [...] Gonzalez MD - 08/03/2019 12:24 PM EDT [facility] IN-PATIENT SERVICE [facility] Progress Note 08/03/2019 12:24 PM Name: Gera Perdue Acct: [id number] Room: 0236/0236-01 Day: 2 Admit Date: 08/01/2019 11:58 PM [...] 199 MPV 9.3 9.4 Chemistry: Recent Labs 08/02/1961208/02/1943 08/03/19 0505 NA -- 140 142 K -- 3.8 3.9 CL -- 106 108* CO2 -- 25 22 GLUCOSE -- 108* 78 BUN -- 14 11 CREATININE -- 0.68 0.72 ANIONGAP -- 9 12 LABGLOM -- >60 >60 GFRAA -- >60 >60 CALCIUM -- 8.6 8.3* LACTACIDWB 1.0 -- -- Recent Labs 08/02/1943 08/03/19 0505 PROT 6.4 6.2* LABALBU 3.1* [...] Perdue DATE: 08/03/2019 PRIMARY CARE PHYSICIAN: Physician Berenice (Inactive) HD: # 2 ASSESSMENT Patient Active [...] 08/02/2019 9:16 AM EDT Attempted to call [facility] pharmacy in [place] to retrieve home medication list, but pharmacy does not open until 10:00 am. Light Equipment Operator will attempt again after this time. [...] Coronary atherosclerosis of unspecified type of vessel, grayling or graft Mixed hyperlipidemia Essential hypertension Unspecified [...] chest 2 views Jenna Engle MD [address] [facility] [address] [place] [address] Referral ID Status Reason Start Date Expiration Date Visits Requested Visits Authorized [id number] Authorized Perform Procedure 01/06/2024 01/05/2025 1 1 Specialty Diagnoses / Procedures Referred By Contac t Referred To Contact Diagnoses Shortness of breath Procedures ECG 12 Lead Jenna Engle MD [address] [address] Referral ID Status Reason Start Date Expiration Date V isits Requested Visits Authorized [id number] Authorized 01/06/2024 01/05/2025 1 1 Specialty Diagnoses / Procedures Referred By Contac t Referred To Contact Cardiology Diagnoses Shortness of breath Procedures Follow Up In Cardiology Jenna Engle MD [address] [facility] [address] [place] [address] Jenna Engle MD [address] [facility] [address] [place] [address] Referral ID Status Reason Start Date Expiration Date V isits Requested Visits Authorized [id number] Authorized 01/06/2024 01/05/2025 1 1 Specialty Diagnoses / Procedures Referred By Contac t Referred To Contact Cardiology Diagnoses Shortness of breath Procedures Transthoracic Echo Complete MI ECHO TTHRC R-T 2D W/WOM-MODE COMPL SPEC&COLR D Jenna Engle MD [address] [address] Referral ID Status Reason Start Date Expiration Date Visits Requested Visits Authorized [id number] Pending Review Perform Procedure 01/06/2024 01/05/2025 1 1 Specialty Diagnoses / Procedures Referred By Contac t Referred To Contact Ham Facer Diagnoses Essential hypertension (CMS/HCC) Stage 3a chronic kidney disease (HCC) (CMS/HCC) Sepsis with acute renal failure without septic shock, due to unspecified organism, unspecified acute renal failure type (CMS/HCC) Medication management Procedures MI OFFICE/OUTPATIENT NEW HIGH MDM 60 MINUTES Lilliam Cheek, POTATO GRADER [address] [place] [address] [facility] [place] [address] Referral ID Status Reason Start Date Expiration Date Visits Requested Visits Authorized [id number] Pending Review Specialty Services Required 12/09/2023 06/06/2024 1 1 Specialty Diagnoses / Procedures Referred By Contac t Referred To Contact Home Health Services Diagnoses SOB (shortness of breath) Wheezing Urinary tract bacterial infections Essential hypertension (CMS/HCC) Mixed hyperlipidemia (CMS/HCC) Stage 3a chronic kidney disease (HCC) ([facility]) Sepsis with acute renal failure without septic shock, due to unspecified organism, unspecified acute renal failure type (CMS/HCC) Medication management Lilliam Cheek POTATO GRADER [address] [place] [address] Referral ID Status Reason Start Date Expiration Date Visits Requested Visits Authorized [id number] Pending Review Specialty Services Required 12/09/2023 02/07/[phone] Specialty Diagnoses / Procedures Referred By Contac t Referred To Contact Obstetrics and Gynecology Diagnoses Urinary tract bacterial infections Female bladder prolapse Procedures MI OFFICE/OUTPATIENT NEW HIGH MDM 60 MINUTES Lilliam Cheek, POTATO GRADER [address] [place] [address] Cee Cordero DO [address] [place] [address] Referral ID Status Reason Start Date Expiration Date Visits Requested Visits Authorized [id number] Pending Review Specialty Services Required 12/09/2023 06/06/2024 1 1 Additional Source Comments INFORMATION SOURCE (unrecogn ized section and content) DATE CREATED AUTHOR 07/12/2018 [facility] DATE CREATED AUTHOR AUTHOR'S ORGANIZ ATION 08/29/2019 [facility] DATE CREATED AUTHOR AUTHOR'S ORGANIZ ATION 12/24/2020 [facility] DATE CREATED AUTHOR AUTHOR'S ORGANIZ ATION 05/01/2022 [facility] Special[facility] DATE CREATED AUTHOR AUTHOR'S ORGANIZ ATION 01/02/2023 [facility] DATE CREATED AUTHOR AUTHOR'S ORGANIZ ATION 01/21/2023 [facility] DATE CREATED AUTHOR AUTHOR'S ORGANIZ ATION 02/16/2024 [facility] DATE CREATED AUTHOR AUTHOR'S ORGANIZ ATION 02/26/2024 [facility] DATE CREATED AUTHOR AUTHOR'S ORGANIZ ATION 04/23/2024 [facility] DATE CREATED AUTHOR AUTHOR'S ORGANIZ ATION 05/02/2024 [facility] DATE CREATED AUTHOR AUTHOR'S ORGANIZ ATION 07/04/2024 [facility] EPIC DATE CREATED AUTHOR AUTHOR'S ORGANIZ ATION 09/27/2024 [facility] DATE CREATED AUTHOR AUTHOR'S ORGANIZ ATION 10/09/2024 [facility] Reason for Visit (unrecogniz ed section and content) Status Reason Specialty Diagnoses / Procedures Referre d By Contact Referred To Contact Diagnoses Small bowel obstruction (HCC) LEONARDO Verenice Chilel MD [address] [address] [facility] Reason Onset Date Comments Neuro Appt 10/30/2023 Reason Comments Hospital Follow-up Reason Comments New Patient Visit Old [facility] patient Specialty Diagnoses / Procedures Referred By Susanne russell Referred To Contact Cardiology Diagnoses Shortness of breath Procedures Transthoracic Echo Complete MI ECHO TTHRC R-T 2D W/WOM-MODE COMPL SPEC&COLR D Jenna Engle MD [address] [facility] [address] [place] [address] Referral ID Status Reason Start Date Expiration Date Visits Requested Visits Authorized [id number] Authorized Perform Procedure 01/06/2024 01/05/2025 1 1 Reason Comments Follow-up 1m echo results Specialty Diagnoses / Procedures Referred By Susanne russell Referred To Contact Cardiology Diagnoses Shortness of breath Procedures Follow Up In Cardiology Jenna Engle MD [address] [facility] [address] [place] [address] Jenna Engle MD [address] [facility] [address] [place] [address] Referral ID Status Reason Start Date Expiration Date V isits Requested Visits Authorized [id number] Authorized 01/06/2024 01/05/2025 1 1 Reason Comments Hospital Follow-up Care Teams (unrecognized sec tion and content) Team Status: Inactive Member Role Status Dates Gustavo Salas , DO Primary Care Provider Active Hilario Yeung , DO Emergency Provider Active Team Status: Active Member Role Status Katelyn Salas , DO Primary Care Provider Active Team Status: Inactive Member Role Status Katelyn Salas , Primary Care Provider Active Richard Pearson DO [...] Primary Care Provider Active Kadie Jones , [facility]- Emergency Provider Active Team Status: Active [...] Team Status: Active Member Role Status Katelyn Morrissey DO Emergency Provider Active Gustavo Salas DO Primary Care Provider Active Jesus Alberto Aquino MD Admit Provider, Attending Provider Active Team Status: Inactive Member Role Status Dates Maury Morrissey DO Emergency Provider Active Gustavo Salas DO Primary Care Provider Active Jesus Alberto Aquino MD Admit Provider, Attending Provider Active Thread Inspector Relationship Specialty Start Date End Date Mely Camarillo, JAY JAY-CLAY DRY PRESS HELPER [address] [facility] [place] [address] PCP - General Family Medicine 04/08/19 Thread Inspector Relationship Specialty Start Date End Date Mely CamarilloJAY JAY-CLAY DRY PRESS HELPER [address] [facility] [place] [address] PCP - General Family Medicine 04/08/19 Thread Inspector Relationship Specialty Start Date End Date Marquise Mely PersonJAY JAY-CLAY DRY PRESS HELPER [address] [facility] [place] [address] PCP - General Family Medicine 04/08/19 Thread Inspector Relationship Specialty Start Date End Date Gustavo Salas DO [address] [place] [address] PCP - General Internal Medicine 12/09/23 Leah Burgos, LASHAY [address] [place] [address] Registered Nurse Internal Medicine 12/09/23 Thread Inspector Relationship Specialty Start Date End Date Gustavo Salas DO [address] [place] [address] PCP - General Internal Medicine 01/06/24 Thread Inspector Relationship Specialty Start Date End Date Gustavo Salas DO [address] [place] [address] PCP - General Internal Medicine 01/06/24 Thread Inspector Relationship Specialty Start Date End Date Gustavo Salas DO [address] [place] [address] PCP - General Internal Medicine 01/06/24 Team Status: Inactive Member Role Status Dates Gustavo Salas DO Primary Care Provider Active Start: January 06, 2024 End: January 06, 2024 Jenna Engle MD Attending Provider Active Star t: January 06, 2024 End: January 06, 2024 Team Status: Active Member Role Status Dates Gustavo Salas DO Primary Care Provider Active Start: February 14, 2024 Kadie Jones [facility] Emergency Provider Active Start: February 14, 2024 Lucho Grullon MD Admit Provider, Atte nding Provider Active Start: February 14, 2024 Team Status: Inactive Member Role Status Dates Gustavo Salas DO Primary Care Provider Active Start: February 14, 2024 End: February 17, 2024 Kadie Jones [facility] Emergency Provider Active Start: February 14, 2024 End: February 17, 2024 Lucho Grullon MD Admit Provider Active Start: February 14, 2024 End: February 17, 2024 Michoacano Mckenzie MD Attending Provider Active Start: February 14, 2024 End: February 17, 2024 Team Status: Active Member Role Status Dates Gustavo Salas DO Primary Care Provider Active Start: February 14, 2024 Kadie Jones [facility] Emergency Provider Active Start: February 14, 2024 Lucho Grullon MD Admit Provider, Atte nding Provider, Other Provider Active Start: February 14, 2024 Thread Inspector Relationship Specialty Start Date End Date Gustavo Salas DO [address] [place] [address] PCP - General Internal Medicine 12/09/23 Gustavo Salas DO [address] [place] [address] PCP - [facility] 03/28/24 10/27/24 Thread Inspector Relationship Specialty Start Date End Date Gustavo Salas DO [address] [place] [address] PCP - General Internal Medicine 12/09/23 Gustavo Salas DO [address] [place] [address] [facility] 03/28/24 10/27/24 Thread Inspector Relationship Specialty Start Date End Date Gustavo Salas DO [address] [place] [address] PCP - General Internal Medicine 12/09/23 Gustavo Salas DO [address] [place] [address] [facility] 03/28/24 10/27/24 Thread Inspector Relationship Specialty Start Date End Date Gustavo Salas DO [address] [place] [address] PCP - General Internal Medicine 12/09/23 Gustavo Salas, DO [address] [place] [address] [facility] 03/28/24 10/27/24 Goals (unrecognized section and content) [...] BE BASED ON THE PRIMARY CLINICAL RECORDS. [facility] [employer] ([employer]) [facility]. provides no warranty or guarantee of the accuracy or completeness of information in this document.
[2024-10-13] VITALS (19 sets, daily range): BP systolic 120–179; BP diastolic 67–99; PULSE 86–115; TEMP 36.1–36.6; O2SAT 90–98; BMI 40.9
[2024-10-13] MEDS: PANTOPRAZOLE SODIUM 40 MG VIAL IV ×2 (00:47→09:08)
[2024-10-13] MEDS: OXYCODONE HCL/ACETAMINOPHEN 5MG/325MG 1 TAB PO ×2 (00:47→12:00)
[2024-10-13] MEDS: TEMAZEPAM 15 MG CAPSULE PO (00:48)
[2024-10-13] MEDS: DOXYCYCLINE HYCLATE 100 MG in 0.9 % SODIUM CHLORIDE 100 ML IV (01:15)
[2024-10-13] MEDS: IPRATROPIUM/ALBUTEROL SULFATE 3 ML AMPUL.NEB IH ×5 (04:27→23:06)
[2024-10-13] MEDS: METHYLPREDNISOLONE SOD SUCC PF 40 MG/ML VIAL IVP ×4 (05:53→23:11)
[2024-10-13] MEDS: MORPHINE SULFATE 2 MG/ML SYRINGE IV ×4 (05:54→22:21)
[2024-10-13 06:39] LABS: Basophils Percent Auto 0.1 % (0.2-2.0); Hematocrit 36.4 % (36.0-48.0); Immature Granulocytes Abs Auto 0.05 10^3/uL (0.00-0.03); Immature Granulocytes Pct Auto 0.5 % (0.0-0.5); Lymphocytes Absolute Auto 1.4 10^3/uL (1.2-3.8); Lymphocytes Percent Auto 13.9 % (20.5-60.0); Mean Corpuscular HGB Conc 30.2 g/dL (29.9-35.2); Mean Corpuscular Hemoglobin 24.2 pg (26.7-34.0); Mean Corpuscular Volume 80.2 fL (81.0-99.0); Mean Platelet Volume 8.4 fL (9.5-13.5); Monocytes Absolute Auto 0.5 10^3/uL (0.3-0.8); Monocytes Percent Auto 4.5 % (1.7-12.0); Neutrophils Absolute Auto 8.1 10^3/uL (1.4-6.5); Platelet Count 355 10^3/uL (150-450); Red Blood Count 4.54 10^6/uL (4.20-5.40); Red Cell Distribution Width 22.4 % (11.0-15.0)
[2024-10-13 07:10] LABS: Alanine Aminotransferase 20 U/L (14-59); Albumin Globulin Ratio 0.7; Albumin Level 2.9 g/dL (3.4-5.0); Alkaline Phosphatase 96 U/L (46-116); Anion Gap 12.3; Aspartate Amino Transferase 11 U/L (15-37); BUN Creatinine Ratio 19.6; Bilirubin Total 0.3 mg/dL (0.2-1.0); C Reactive Protein 1.74 mg/dL (<=0.50); Calcium 9.3 mg/dL (8.5-10.1); Carbon Dioxide 33.4 mmol/L (21.0-32.0); Chloride 101 mmol/L (98-107); Estimated GFR (African America >60 (>=60 mL/min/1.73m^2); Estimated GFR (Non-African Ame 50 (>=60 mL/min/1.73m^2); Globulin 4.1 g/dL; Glucose 146 mg/dL (74-106); Magnesium 1.5 mg/dL (1.8-2.4); Potassium 3.7 mmol/L (3.5-5.1); Sodium 143 mmol/L (136-145); Troponin I High Sensitivity 41.9 pg/mL (4.0-51.3)
--- NOTE | 2024-10-13 09:04 | PM.HP ---
HPI H&P: HPI History of Present Illness Chief complaint: COPD EXACERBATION, BIPAP Narrative: 78 y o female with hx of chronic resp failure with hypoxia on 3 L and COPD, who has recently been admitted to this facility 09/19-09/23/24 for copd exacerbation and again 10/07-10/08/24 for T6 compression fracture pain, presented to ED last night with fever, chills, cough. Denies N/V/D, CP, dizziness, leg swelling. Reports ill contacts. Pt's oxygen saturation was in the 80s upon EMS arrival to her residence. Pt was placed on CPAP per EMS with improvement. She was transferred to BIPAP upon arrival in the ER. EMS gave 125 mg solu-medrol IV. Pt wears NC oxygen at 3L at home. ER findings: WBC count was 11. Covid-19 and influenza were negative. BNP was 1663; it was 722 on 08/14/24. Pt was given solu-medrol 125 mg per EMS. Given IV hydralazine for her blood pressure and IV Lasix; chest Xray: No acute cardiopulmonary process. Opioid HPI Opioid Management Most Recent Pain and Opioid Data: Last Pain Scale 3 10/13/24 09:00 10/13/24 Last Pain Intensity 8 09/22/24 10:09 09/22/24 Last Pain Assessment 10/13/24 11:00 Last MAR Pain Assessment 10/13/24 05:54 Last ORT Total Score 0 10/13/24 00:00 10/13/24 Last ORT Risk Category Low Risk 10/13/24 00:00 10/13/24 Review of Systems ROS Narrative ROS: a complete review of systems were reviewed with patient and are positive as below or listed in History of Chief Complaint. General: fever, chills, night sweats Head: no headache, trauma, visual changes, nausea or vomiting Skin: no reported rashes, itching or sores Eyes: no blurriness of vision Ears: no reported hearing loss, vertigo, earache, or tinnitus Throat: no sore throat, hoarseness, swelling of neck, or tongue pain Heart: no chest pain Lungs: shortness of breath and cough GI: no diarrhea or vomiting/nausea Urinary: no urinary urgency, frequency or pain Neuro: no numbness or tingling HEM: no bleeding issues or bruising ENDO: no thyroid problems Psych: no anxiety or depression [facility] Medical History Elevated d-dimer ?R79.89 - Other specified abnormal findings of blood chemistry (ICD-10) Pneumonia ?J18.9 - Pneumonia, unspecified organism (ICD-10) Chronic respiratory failure with hypoxia ?J96.11 - Chronic respiratory failure with hypoxia (ICD-10) Anemia ?D64.9 - Anemia, unspecified (ICD-10) HLD (hyperlipidemia) ?E78.5 - Hyperlipidemia, unspecified (ICD-10) ARMAND (obstructive sleep apnea) ?G47.33 - Obstructive sleep apnea (adult) (pediatric) (ICD-10) COPD (chronic obstructive pulmonary disease) ?J44.9 - Chronic obstructive pulmonary disease, unspecified (ICD-10) HTN (hypertension) ?I10 - Essential (primary) hypertension (ICD-10) Surgical History History of colon surgery ?Z98.890 - Other specified postprocedural states (ICD-10) Family History Grandmother Family history of CHF (congestive heart failure) Family history of cancer Family history of hypertension Family history of myocardial infarction Mother Family history of CHF (congestive heart failure) Family history of cancer Family history of hypertension Family history of myocardial infarction Uncle Family history of COPD (chronic obstructive pulmonary disease) Aunt Family history of cancer Social History Within the past year, how often did you have a drink containing alcohol: never Within the past year, how often did you have six or more drinks on one occasion: never Score interpretation: A score less than 3 is consistent with normal alcohol consumption. 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 Highest level of school completed/degree received: 11th grade Are you now , , , , never or living with a partner: In a typical week, how many times do you talk on the telephone with family, friends, or neighbors: 3 or more times per week How often do you get together with friends or relatives: 3 or more times per week How often do you attend gnosticist or baptism services: 1-3 times per year Do you belong to any clubs or organizations such as gnosticist groups unions, fraternal or athletic groups, or school groups: yes Total score: 2 Score interpretation: A score of greater than or equal to 2 indicates the lowest level of social isolation. Little interest or pleasure in doing things: several days Feeling down, depressed, or hopeless: several days Feel stressed/tense/nervous/anxious/difficulty sleeping: to some extent Do you think of yourself as: decline to answer Gender Identity: female Meds Home Medications and Allergies Home Medications ?Medication ?Instructions ?Recorded ?Confirmed ?Type albuterol sulfate 90 mcg/actuation 2 puff inhalation Q4H PRN 08/28/23 10/13/24 History aerosol inhaler shortness of breath or wheezing cholecalciferol (vitamin D3) 50 50 mcg PO DAILY 08/28/23 10/13/24 History mcg (2,000 unit) tablet pregabalin 75 mg capsule 75 mg PO BID 08/28/23 10/06/24 History melatonin 5 mg tablet 5 mg PO QPM 08/14/24 10/13/24 History fluticasone fur. 100 mcg-umeclid 1 inh inhalation QAM 09/19/24 10/06/24 History 62.5 mcg-vilant 25 mcg inhalat.powder (Trelegy Ellipta) polyethylene glycol 3350 17 17 g PO DAILY PRN constipation 10/01/24 10/13/24 Rx gram/dose oral powder (Miralax) #510 grams oxycodone-acetaminophen 5 mg-325 1 tab PO Q6H PRN pain 3 days #10 10/03/24 10/13/24 Rx mg tablet (Percocet) tabs calcitonin (salmon) 200 1 spray intranasal QD #3.7 mL 10/08/24 10/13/24 Rx unit/actuation nasal spray prednisone 10 mg tablet 40 mg (4 x 10 mg) PO DAILY #32 tabs 10/08/24 10/13/24 Rx Allergies Allergy/AdvReac Type Severity Reaction Status Date / Time aspirin Allergy Severe Hives Verified 10/03/24 15:37 Exam Narrative Exam Narrative: General: Patient is alert, and oriented to person, place and time with normal affect, proper hygiene, tremulous, and short of breath with conversing Skin: no visible rashes, or ulcers Head: atraumatic, acephalic Eyes: PERRLA, no nystagmus present, conjunctiva clear, no scleral icterus Ears: normal gross auditory acuity Heart: increased rate and normal rhythm, no murmurs/rubs/gallops Lungs: no audible wheezes, crackles and normal breath sounds all lung felipe Abdomen: Normal audible bowel sounds, no distension, No palpable masses, no organomegaly, no rebound/guarding/ or rigidity Musculoskeletal: mild swelling bilateral lower extremities Neuro: CN II-X grossly intact Constitutional Vital Signs, click to edit/add: Last Vital Signs Temp 97.5 F L 10/13/24 08:00 Pulse 115 H 10/13/24 08:00 Resp 18 10/13/24 05:55 BP 179/99 H 10/13/24 08:00 Pulse Ox 93 L 10/13/24 08:39 O2 Del Method Nasal Cannula 10/13/24 08:39 O2 Flow Rate 2 10/13/24 08:39 FiO2 25 10/12/24 20:01 Results Labs Labs: Short CBC 10/12/24 10/13/24 Range/Units 19:10 05:50 WBC 11.0 10.0 (4.0-11.0) 10^3/uL Hgb 11.7 L 11.0 L (12.0-16.0) g/dL Hct 38.8 36.4 (36.0-48.0) % Plt Count 373 355 (150-450) 10^3/uL BMP 10/12/24 10/13/24 19:10 05:50 Sodium 143 143 Potassium 4.3 3.7 Chloride 103 101 Carbon Dioxide 31.4 33.4 H BUN 21.0 H 21.0 H Creatinine 1.00 1.07 H Glucose 164 H 146 H Calcium 9.5 9.3 Liver Function 10/12/24 10/13/24 Range/Units 19:10 05:50 Total Bilirubin 0.3 0.3 (0.2-1.0) mg/dL AST 13 L 11 L (15-37) U/L ALT 22 20 (14-59) U/L Alkaline Phosphatase 113 96 (46-116) U/L Albumin 3.3 L 2.9 L (3.4-5.0) g/dL ABG ABG results: 10/12/24 17:14 ABG pH 7.417 ABG pCO2 48.8 H ABG pO2 123.0 H ABG HCO3 31.4 H ABG O2 Saturation 97.7 ABG Base Excess 6.9 H Assessment and Plan Assessment and Plan (1) COPD with acute exacerbation: Assessment and Plan: was placed on doxycycline, Will stop and placed on zosyn to also cover her VRE UTI. Continue Solu-medrol, pulmonary toilet and Opep. Back to her 3L NC oxygen from baseline but still very dyspneic. Chest X-ray shows no acute pneumonia. Will also place on oral Azith. (2) Acute and chronic respiratory failure (ufujz-pa-trfqize): Assessment and Plan: did require BIPAP initially but back to baseline 3L, troponins normal. Qualifiers: Respiratory failure complication: hypoxia Qualified Code(s): J96.21 - Acute and chronic respiratory failure with hypoxia (3) VRE (vancomycin-resistant Enterococci) infection: Assessment and Plan: in urine, PCN sensitive, treat with zosyn (4) Acute UTI: Assessment and Plan: from #3 (5) ARTURO (acute kidney injury): Assessment and Plan: Most likely chronic. Continue to monitor with diuresis (6) Hypomagnesemia: Assessment and Plan: replace with 2g IV x 1 (7) Compression fracture: Assessment and Plan: chronic at T6, pain control as needed. (8) Elevated blood pressure reading without diagnosis of hypertension: Assessment and Plan: start coreg 12.5mg PO BID Plan Patient is a DNRCCA Lovenox for DVT prophylaxis Patient is inpatient status and is expected to cross 2 midnights for hospital necessary care. Urinary Catheter Management Urinary Catheter Management Urethral: Cath placed during this visit: yes Urethral indwelling: Yes Reason for continuing: measure accurate output Insertion date: 10/12/24 Insertion time: 22:05
[2024-10-13] MEDS: ENOXAPARIN SODIUM 40 MG/0.4 ML SYRINGE SUBQ (09:08)
--- NOTE | 2024-10-13 09:26 | SWNOTE1 ---
Pt does have home oxygen 3 liters continuous, from [employer]. Pt has Passport services as well and goes to adult day care 4x a week while her daughter works. Pt did have [facility] coming in when she was last discharged. SW to stop in and see pt and review therapy notes.
[2024-10-13] MEDS: MAGNESIUM SULFATE IN WATER 2 GM/50 ML PREMIX IV (10:04)
--- NOTE | 2024-10-13 11:37 | CM.NOTE ---
Rounds made with Dr. Plascencia. Dr. Plascencia reviewed plan of care with No discharge today.
[2024-10-13] MEDS: CARVEDILOL 12.5 MG TABLET PO ×2 (12:00→22:19)
--- NOTE | 2024-10-13 12:01 | SWNOTE1 ---
Important Message from [employer] reviewed and discussed with patient. Pt. verbalized understanding and signed the form. Original given to patient and copy placed in patient?s chart.
--- NOTE | 2024-10-13 12:03 | SWNOTE1 ---
SW met with pt to discuss dc needs. Pt still living with her daughter and grand-daughter. She does have [facility] coming in and home oxygen, 3 liters from [employer]. She does go to adult day care 4x a week and likes it there. She also has passport services coming in. Pt mentioned that the guys came in from therapy and recommended she goes to rehab. She voiced she is willing but wants to be home by [place]. SW advised pt that there is no guarantee that pt will be home by [place] as it is already 10/13. Pt voiced understanding. She stated she wants the [facility]. SW offered to review list from [employer].gov star ratings, but pt stated she wants the [facility]. SW to reach out to [facility] and review therapy notes to make sure SNF recommended. Pt is a precert.
[2024-10-13] MEDS: POLYETHYLENE GLYCOL 3350 17 GM POWDER PACKET PO (12:04)
--- NOTE | 2024-10-13 12:49 | SWNOTE1 ---
SNF is recommended. Referral sent to [facility]. Referral included face sheet, ED note, H&P, provider notes, case management report, , nursing notes, diagnostic imaging, med list, and OT note. SW to send PT note once documented.
--- NOTE | 2024-10-13 13:41 | SWNOTE1 ---
JULIAN faxed PT note over to [facility].
[2024-10-13] MEDS: PIPERACILLIN SODIUM/TAZOBACTAM 3.375 GM in 0.9 % SODIUM CHLORIDE 50 ML IV ×2 (14:00→22:19)
--- NOTE | 2024-10-13 14:03 | SWNOTE1 ---
[facility] is not able to accept due to an issue last time pt was there. SW to see where else patients wants to go.
[2024-10-13 14:10] LABS: A. calcoaceticus-baumannii Cpx NOT DETECTED (NOT DETECTE); Bacteroides fragilis NOT DETECTED (NOT DETECTE); Candida albicans NOT DETECTED (NOT DETECTE); Candida auris NOT DETECTED (NOT DETECTE); Candida glabrata NOT DETECTED (NOT DETECTE); Candida krusei NOT DETECTED (NOT DETECTE); Candida parapsilosis NOT DETECTED (NOT DETECTE); Candida tropicalis NOT DETECTED (NOT DETECTE); Cryptococcus neoformans/gattii NOT DETECTED (NOT DETECTE); Enterobacter cloacae complex NOT DETECTED (NOT DETECTE); Enterobacterales NOT DETECTED (NOT DETECTE); Enterococcus faecalis NOT DETECTED (NOT DETECTE); Enterococcus faecium NOT DETECTED (NOT DETECTE); Haemophilus influenzae NOT DETECTED (NOT DETECTE); Klebsiella aerogenes NOT DETECTED (NOT DETECTE); Klebsiella pneumoniae group NOT DETECTED (NOT DETECTE); Listeria monocytogenes NOT DETECTED (NOT DETECTE); Neisseria meningitidis NOT DETECTED (NOT DETECTE); Proteus spp. NOT DETECTED (NOT DETECTE); Pseudomonas aeruginosa NOT DETECTED (NOT DETECTE); Salmonella spp. NOT DETECTED (NOT DETECTE); Serratia marcescens NOT DETECTED (NOT DETECTE); Staphylococcus epidermidis NOT DETECTED (NOT DETECTE); Staphylococcus lugdunensis NOT DETECTED (NOT DETECTE); Stenotrophomonas maltophilia NOT DETECTED (NOT DETECTE); Streptococcus agalactiae NOT DETECTED (NOT DETECTE); Streptococcus pneumoniae NOT DETECTED (NOT DETECTE); Streptococcus pyogenes NOT DETECTED (NOT DETECTE); Streptococcus spp. NOT DETECTED (NOT DETECTE)
--- NOTE | 2024-10-13 14:25 | SWNOTE1 ---
SW spoke with pt and let her know [facility] is not able to accept. SW and pt spoke about other facilities. Pt does live in [place]. SW did show pt medicare.gov star rating list. SW offered to call pt's daughter to discuss, but she stated to try the facility in [place]. JULIAN sent Melva at [facility] an email to see if they openings.
[2024-10-13 15:24] LABS: Source Blood
[2024-10-13 15:26] LABS: Staphylococcus spp. DETECTED (NOT DETECTE)
--- NOTE | 2024-10-13 15:35 | SWNOTE1 ---
SW heard back from Melva at [facility] and she stated to send over referral. Referral sent to [facility]. Referral included face sheet, ED note, H&P, provider notes, case management report, wound consult, nursing notes, diagnostic imaging, med list, and PT/OT notes.
--- NOTE | 2024-10-13 15:45 | SWNOTE1 ---
SW spoke to Melva at [facility] and they are able to accept and starting precert.
[2024-10-14] VITALS (10 sets, daily range): BP systolic 139–177; BP diastolic 76–94; PULSE 80–95; TEMP 36.1–36.7; O2SAT 90–98
[2024-10-14] MEDS: IPRATROPIUM/ALBUTEROL SULFATE 3 ML AMPUL.NEB IH ×3 (04:16→15:53)
[2024-10-14] MEDS: MORPHINE SULFATE 2 MG/ML SYRINGE IV ×2 (05:22→22:50)
[2024-10-14] MEDS: PIPERACILLIN SODIUM/TAZOBACTAM 3.375 GM in 0.9 % SODIUM CHLORIDE 50 ML IV (05:22)
[2024-10-14] MEDS: METHYLPREDNISOLONE SOD SUCC PF 40 MG/ML VIAL IVP (05:22)
[2024-10-14 06:38] LABS: Basophils Percent Auto 0.1 % (0.2-2.0); Hemoglobin 10.5 g/dL (12.0-16.0); Immature Granulocytes Abs Auto 0.09 10^3/uL (0.00-0.03); Immature Granulocytes Pct Auto 0.6 % (0.0-0.5); Lymphocytes Absolute Auto 1.1 10^3/uL (1.2-3.8); Lymphocytes Percent Auto 7.6 % (20.5-60.0); Mean Corpuscular Hemoglobin 24.7 pg (26.7-34.0); Mean Corpuscular Volume 82.4 fL (81.0-99.0); Mean Platelet Volume 8.4 fL (9.5-13.5); Monocytes Absolute Auto 0.6 10^3/uL (0.3-0.8); Monocytes Percent Auto 3.9 % (1.7-12.0); Neutrophils Absolute Auto 13.1 10^3/uL (1.4-6.5); Neutrophils Percent Auto 87.8 % (43.0-75.0); Platelet Count 344 10^3/uL (150-450); Red Blood Count 4.25 10^6/uL (4.20-5.40); Red Cell Distribution Width 22.7 % (11.0-15.0); White Blood Count 14.9 10^3/uL (4.0-11.0)
[2024-10-14 06:46] LABS: Anion Gap 9.3; BUN Creatinine Ratio 26.2; Calcium 9.2 mg/dL (8.5-10.1); Carbon Dioxide 34.9 mmol/L (21.0-32.0); Chloride 105 mmol/L (98-107); Estimated GFR (African America 52 (>=60 mL/min/1.73m^2); Estimated GFR (Non-African Ame 43 (>=60 mL/min/1.73m^2); Glucose 133 mg/dL (74-106); Potassium 4.2 mmol/L (3.5-5.1); Sodium 145 mmol/L (136-145)
--- NOTE | 2024-10-14 08:08 | PM.PN ---
Progress Note: Subjective Subjective Interval history: Patient is complaining of left side and back pain. Difficult to take deep breath in and cough when in pain. She denies fevers and chills. No n/v/d, still tremulous and short of breath. Exam Narrative Exam Narrative: General: Patient is alert, and oriented to person, place and time with normal affect, proper hygiene, tremulous, and short of breath with conversing, tearful and in pain Skin: no visible rashes, or ulcers Head: atraumatic, acephalic Eyes: PERRLA, no nystagmus present, conjunctiva clear, no scleral icterus Ears: normal gross auditory acuity Heart: increased rate and normal rhythm, no murmurs/rubs/gallops Lungs: audible wheezes, no crackles and diminished breath sounds Abdomen: Normal audible bowel sounds, no distension, No palpable masses, no organomegaly, no rebound/guarding/ or rigidity Musculoskeletal: mild swelling bilateral lower extremities Neuro: CN II-X grossly intact Constitutional Vital Signs, click to edit/add: Last Vital Signs Temp 97.8 F 10/14/24 04:23 Pulse 93 H 10/14/24 04:23 Resp 18 10/14/24 04:23 BP 146/82 H 10/14/24 04:23 Pulse Ox 90 L 10/14/24 04:23 O2 Del Method Nasal Cannula 10/14/24 04:16 O2 Flow Rate 1 10/14/24 04:23 FiO2 25 10/12/24 20:01 Progress Note: Objective Labs Labs: Short CBC 10/14/24 Range/Units 06:05 WBC 14.9 H (4.0-11.0) 10^3/uL Hgb 10.5 L (12.0-16.0) g/dL Hct 35.0 L (36.0-48.0) % Plt Count 344 (150-450) 10^3/uL BMP 10/14/24 06:05 Sodium 145 Potassium 4.2 Chloride 105 Carbon Dioxide 34.9 H BUN 32.0 H Creatinine 1.22 H Glucose 133 H Calcium 9.2 Progress Note: A&P Assessment and Plan (1) COPD with acute exacerbation: Assessment and Plan: placed on zosyn to also cover her VRE UTI but now with staph sp blood culture positive, stop Zosyn and place on Linezolid. on Solu-medrol, stop and place on oral prednisone, continue pulmonary toilet and Opep. Back to her 3L NC oxygen from baseline. Chest X-ray shows no acute pneumonia (2) Acute and chronic respiratory failure ([id number]): Assessment and Plan: acute has resolved, down to 1L via NC Qualifiers: Respiratory failure complication: hypoxia Qualified Code(s): J96.21 - Acute and chronic respiratory failure with hypoxia (3) VRE (vancomycin-resistant Enterococci) infection: Assessment and Plan: stop zosyn and start Linezolid (4) Acute UTI: Assessment and Plan: from #3 (5) ARTURO (acute kidney injury): Assessment and Plan: Cr 1.22. Monitor, most likely from acute UTI (6) Hypomagnesemia: Assessment and Plan: replace as needed and daily (7) Compression fracture: Assessment and Plan: schedule oxycodone q6 hours and PRN morphine IV (8) Elevated blood pressure reading without diagnosis of hypertension: Assessment and Plan: increase coreg to 25mg BID (9) Bacteremia due to Staphylococcus: Assessment and Plan: awaiting sensitivities but will place on linezolid to cover this and VRE Plan Patient is a DNRCCA Lovenox for DVT prophylaxis Precert to retirement facility. Urinary Catheter Management Urinary Catheter Management Urethral: Cath placed during this visit: yes Urethral indwelling: Yes Reason for continuing: measure accurate output Insertion date: 10/12/24 Insertion time: 22:05
[2024-10-14] MEDS: PANTOPRAZOLE SODIUM 40 MG VIAL IV (08:13)
[2024-10-14] MEDS: CARVEDILOL 12.5 MG TABLET PO (08:13)
[2024-10-14] MEDS: ENOXAPARIN SODIUM 40 MG/0.4 ML SYRINGE SUBQ (08:13)
[2024-10-14] MEDS: OXYCODONE HCL/ACETAMINOPHEN 5MG/325MG 1 TAB PO ×3 (10:24→21:04)
[2024-10-14] MEDS: LINEZOLID 600 MG TABLET PO ×2 (10:24→21:04)
--- NOTE | 2024-10-14 10:30 | CM.NOTE ---
Rounds made with Dr. Plascencia. Complains of back pain in the mid to lower area. Dr. Plascencia to adjust pain medications. Jossy verbalizes understanding.
--- NOTE | 2024-10-14 10:39 | REH.PTDLY ---
Physical Therapy Daily Note PT Daily Note/Assess Start: 10/13/24 13:08 Freq: Status: Active Protocol: Document 10/14/24 10:34 ABEBE (Rec: 10/14/24 10:39 ABEBE [id number]) Physical Therapy Daily Note/Assessment Time In 10:20 Time Out 10:32 Subjective Attempted earlier rx, but pt working with OT. Returned later and pt up in chair. States pain is a 10/10 in L rib cage. Nursing in room to administer pain meds to pt . Therapeutic Exercise 8 Minutes (minutes) Therapeutic Exercise 1 Units Therapeutic Exercise instructed in B LE exs with legs elevated in recliner Treatment 10-15x ea with AP, ankle circles CW and CCW, quad sets, glute sets, SLR, heel slides, hip abd slides for improved strength for ease of transfers and gait. Pt declined transfers and standing at this time due to high pain levels. Total Therapy 8 Minutes Total Physical 1 Therapy Units Daily Note Summary Limited to B LE exs in chair this morning due to pt having high pain levels in L side, and pt asking to not have to get up at this time due to this. Pt did get up earlier this morning with OT. Plan is for pt to go to alf facility to become stronger as pt has had several admissions to the hospital in the last month.
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
--- NOTE | 2024-10-14 13:33 | SWNOTE1 ---
JULIAN faxed over updated PT/OT from today, labs, progress note, vitals, and nursing notes to Melva at [facility]. JULIAN also sent over DNR paperwork. Melva did message SW and precert is still pending.
--- NOTE | 2024-10-14 15:20 | SWNOTE1 ---
SW completed HENS online.
[2024-10-14] MEDS: TEMAZEPAM 15 MG CAPSULE PO (21:04)
[2024-10-14] MEDS: PREDNISONE 20 MG TABLET PO (21:04)
[2024-10-14] MEDS: CARVEDILOL 12.5 MG TABLET 25 MG PO (21:04)
[2024-10-15] MEDS: OXYCODONE HCL/ACETAMINOPHEN 5MG/325MG 1 TAB PO ×2 (04:10→09:00)
[2024-10-15 04:17] VITALS: BP 157/82; PULSE 74; TEMP 36.8; O2SAT 92
[2024-10-15] MEDS: ACETAMINOPHEN 325 MG TABLET 650 MG PO (06:31)
[2024-10-15 07:01] LABS: Basophils Percent Auto 0.1 % (0.2-2.0); Hemoglobin 10.6 g/dL (12.0-16.0); Immature Granulocytes Abs Auto 0.08 10^3/uL (0.00-0.03); Immature Granulocytes Pct Auto 0.7 % (0.0-0.5); Lymphocytes Absolute Auto 1.3 10^3/uL (1.2-3.8); Lymphocytes Percent Auto 11.4 % (20.5-60.0); Mean Corpuscular HGB Conc 29.4 g/dL (29.9-35.2); Mean Corpuscular Hemoglobin 24.2 pg (26.7-34.0); Mean Corpuscular Volume 82.2 fL (81.0-99.0); Mean Platelet Volume 8.4 fL (9.5-13.5); Monocytes Absolute Auto 0.5 10^3/uL (0.3-0.8); Monocytes Percent Auto 4.3 % (1.7-12.0); Neutrophils Absolute Auto 9.8 10^3/uL (1.4-6.5); Neutrophils Percent Auto 83.5 % (43.0-75.0); Platelet Count 337 10^3/uL (150-450); Red Blood Count 4.38 10^6/uL (4.20-5.40); Red Cell Distribution Width 22.6 % (11.0-15.0); White Blood Count 11.8 10^3/uL (4.0-11.0)
[2024-10-15 07:10] LABS: Anion Gap 8.4; BUN Creatinine Ratio 33.3; Calcium 9.4 mg/dL (8.5-10.1); Carbon Dioxide 33.4 mmol/L (21.0-32.0); Chloride 106 mmol/L (98-107); Estimated GFR (African America 58 (>=60 mL/min/1.73m^2); Estimated GFR (Non-African Ame 48 (>=60 mL/min/1.73m^2); Glucose 139 mg/dL (74-106); Potassium 4.8 mmol/L (3.5-5.1); Sodium 143 mmol/L (136-145)
[2024-10-15 07:43] VITALS: BP 162/87; PULSE 82; TEMP 36.6; O2SAT 94
--- NOTE | 2024-10-15 08:32 | XR_ITS ---
The [address] [address] Patient Name: GERA PERDUE MRN: [id number] date: 1945 Sex: F Assigned Patient Location: [place] Current Patient Location: [place] Accession/Order Number: [id number] Exam Date: 10/15/2024 08:45 Report Date: 10/15/2024 09:21 At the request of: CORBY AGUILAR Procedure: XR chest 1V EXAM: XR chest 1V HISTORY: cough COMPARISON: 10/12/2024 TECHNIQUE: AP portable erect FINDINGS: LUNGS: Linear opacity in the right lung base. Moderate left basilar infiltrate VASCULATURE: No increased pulmonary vasculature. PLEURA: No pneumothorax, effusion, or pleural thickening. CARDIAC: Mild stable cardiomegaly MEDIASTINUM: No visible mass or adenopathy. Aortic atherosclerosis BONES: No fracture or visible bone lesion. OTHER: Negative. XR/XR chest 1V IMPRESSION: Moderate left basilar infiltrate, consider pneumonia Electronically authenticated by: NATHANIEL BOYLE Date: 10/15/2024 09:21
--- NOTE | 2024-10-15 08:34 | P.DS_ITS ---
DS: Providers Provider Date of admission: 10/13/24 14:08 Primary care physician: AMOS SALAS Admitting clinician: Lilliam Plascencia Consults: 10/13/24 11:23 Occupational Therapy Eval and Treat Routine Reason for consultation: weakness, short of breath Has provider been notified: No Physical Therapy Eval and Treat Routine Reason for consultation: weakness, short of breath Has provider been notified: No Discharging clinician: Lilliam Plascencia DS: Diagnosis Discharge Diagnosis (1) COPD with acute exacerbation: (2) Acute and chronic respiratory failure ([id number]): Qualifiers: Respiratory failure complication: hypoxia Qualified Code(s): J96.21 - Acute and chronic respiratory failure with hypoxia (3) VRE (vancomycin-resistant Enterococci) infection: (4) Acute UTI: (5) ARTURO (acute kidney injury): (6) Hypomagnesemia: (7) Compression fracture: (8) Elevated blood pressure reading without diagnosis of hypertension: (9) Bacteremia due to Staphylococcus: DS: Summary Hospital Course Hospital Course: 78 y o female with hx of chronic resp failure with hypoxia on 3 L and COPD, who has recently been admitted to this facility 09/19-09/23/24 for copd exacerbation and again 10/07-10/08/24 for T6 compression fracture pain, presented to ED last night with fever, chills, cough. Denies N/V/D, CP, dizziness, leg swelling. Reports ill contacts. Pt's oxygen saturation was in the 80s upon EMS arrival to her residence. Pt was placed on CPAP per EMS with improvement. She was transferred to BIPAP upon arrival in the ER. EMS gave 125 mg solu-medrol IV. Pt wears NC oxygen at 3L at home. ER findings: WBC count was 11. Covid-19 and influenza were negative. BNP was 1663; it was 722 on 08/14/24. Pt was given solu-medrol 125 mg per EMS. Given IV hydralazine for her blood pressure and IV Lasix; chest Xray: No acute cardiopulmonary process. Was admitted in ICU intially. Respiratory gallagher she recovered quicker than anticipated and was weaned from BIPAP to 3L NC oxygen which is her baseline. She was continued on IV Solumedrol. She had acute UTI with Culture positive for VTE, She was initially started on Zosyn but also had a positive blood culture for Staph species so I transitioned her to Linezolid which covers both. She will be on Linezolid 600mg BID x 2 weeks. She will also be placed on prednisone taper at discharge. She will resume home meds, inhalers. Her Blood pressures were controlled on Coreg 25mg BID, and this will be a new medication for her. Given her compression fractures, She did require Oxycodone and PRN Morphine for pain, and a prescription was written for them to continue at intermediate. She is back to her baseline respiratory status on 3L NC oxygen. She will be discharged to [facility] for rehab. She may return to the ER with any worsening signs or symptoms. Status at Discharge Functional status at discharge: uses cane/walker Overall status at discharge: patient is progressing back to baseline Time Spent with Patient Time attestation: Total time spent providing and/or coordinating discharge services: Time spent: greater than 30 minutes Exam Narrative Exam Narrative: General: Patient is alert, and oriented to person, place and time with normal affect, proper hygiene, tremulous, but shortness of breath has resolved Skin: no visible rashes, or ulcers Head: atraumatic, acephalic Eyes: PERRLA, no nystagmus present, conjunctiva clear, no scleral icterus Ears: normal gross auditory acuity Heart: normal rate and rhythm, no murmurs/rubs/gallops Lungs: no audible wheezes, no crackles Abdomen: Normal audible bowel sounds, no distension, No palpable masses, no orga nomegaly, no rebound/guarding/ or rigidity Musculoskeletal: no swelling bilateral lower extremities Neuro: CN II-X grossly intact Constitutional Vital Signs, click to edit/add: Last Vital Signs Temp 97.9 F 10/15/24 07:43 Pulse 82 10/15/24 07:43 Resp 18 10/15/24 04:17 BP 162/87 H 10/15/24 07:43 Pulse Ox 94 L 10/15/24 07:43 O2 Del Method Nasal Cannula 10/15/24 07:43 O2 Flow Rate 1 10/15/24 07:43 FiO2 25 10/12/24 20:01 DS: Data Data Completed and Pending Labs on day of discharge: Labs from last 24 hours 10/15/24 06:37 WBC 11.8 H RBC 4.38 Hgb 10.6 L Hct 36.0 MCV 82.2 MCH 24.2 L MCHC 29.4 L RDW 22.6 H Plt Count 337 MPV 8.4 L Neut % (Auto) 83.5 H Lymph % (Auto) 11.4 L [place] % (Auto) 4.3 Eos % (Auto) 0.0 L Baso % (Auto) 0.1 L Neut # (Auto) 9.8 H Lymph # (Auto) 1.3 [place] # (Auto) 0.5 Eos # (Auto) 0.0 Baso # (Auto) 0.0 Abs Immat Gran (auto) 0.08 H Imm/Tot Granulo (auto) 0.7 H Sodium 143 Potassium 4.8 Chloride 106 Carbon Dioxide 33.4 H Anion Gap 8.4 BUN 37.0 H Creatinine 1.11 H Est GFR ( Amer) 58 L Est GFR (Non-Af Amer) 48 L BUN/Creatinine Ratio 33.3 Glucose 139 H Calcium 9.4 Preliminary micro results at discharge 10/12/24 19:10 Bacterial ID and Susceptibility - Preliminary Blood - Left Forearm Anaerobe Identification - Preliminary 10/12/24 19:10 Blood Culture Result 1 - Preliminary Blood 10/12/24 19:25 Blood Culture Result 2 - Preliminary Blood NO GROWTH AT 36-48 HOURS. FINAL TO FOLLOW. Discharge Plan Discharge Disposition: Xfer SNF Condition: Good Discharge Medications: New linezolid 600 mg Tablet 600 mg PO BID 13 Days Qty: 26 0RF carvedilol [Coreg] 25 mg tablet 25 mg PO BID 30 Days Qty: 60 0RF Rx Instructions: must administer with a meal/food Continued albuterol sulfate 90 mcg/actuation HFA aerosol inhaler 2 puff INHALATION Q4H PRN (Reason: shortness of breath or wheezing) pregabalin 75 mg capsule 75 mg PO BID cholecalciferol (vitamin D3) 50 mcg (2,000 unit) tablet 50 mcg PO DAILY melatonin 5 mg tablet 5 mg PO QPM polyethylene glycol 3350 [Miralax] 17 gram/dose powder 17 g PO DAILY PRN (Reason: constipation) Qty: 510 0RF prednisone 10 mg tablet 40 mg PO DAILY Qty: 32 0RF Rx Instructions: 4/day for 3 days, 3/day for 3 days, 2/day for 3 days, 1/day for 3 days, 1/2 /day for 4 days oxycodone-acetaminophen [Percocet] 5-325 mg tablet 1 tab PO Q6H PRN (Reason: pain) 3 Days Qty: 10 0RF Trelegy Ellipta 100-62.5-25 mcg blister with device 1 inh INHALATION QAM calcitonin (salmon) 200 unit/actuation [place],Non-Aerosol 1 spray intranasal QD Qty: 3.7 11RF Print Language: Tamazight Activity Restrictions/Additional Instructions: 3L NC continuous oxygen Scale Agent/Chemical Waste Management Technician Instructions: Discharge to [facility]. Forms: Portal Instructions Discharge location: [facility]
[2024-10-15 08:44] LABS: Magnesium 1.9 mg/dL (1.8-2.4)
[2024-10-15] MEDS: PREDNISONE 20 MG TABLET PO (08:53)
[2024-10-15] MEDS: ENOXAPARIN SODIUM 40 MG/0.4 ML SYRINGE SUBQ (08:53)
[2024-10-15] MEDS: PANTOPRAZOLE SODIUM 40 MG VIAL IV (08:53)
[2024-10-15] MEDS: LINEZOLID 600 MG TABLET PO (08:53)
[2024-10-15] MEDS: CARVEDILOL 12.5 MG TABLET 25 MG PO (08:53)
--- NOTE | 2024-10-15 10:00 | REH.PTDLY ---
Physical Therapy Daily Note PT Daily Note/Assess Start: 10/13/24 13:08 Freq: Status: Active Protocol: Document 10/15/24 09:25 ABEBE (Rec: 10/15/24 10:00 [facility] [id number]) Physical Therapy Daily Note/Assessment Time In 09:10 Time Out 09:25 Subjective Pt up in chair upon arrival, agreeable to therapy. Just had a pain pill so reports pain is 'about half' or 5/ 10. Pt on 1 L of O2 currently Therapeutic Exercise 5 Minutes (minutes) Therapeutic Exercise 0 Units Therapeutic Exercise Instructed in seated LAQ, marching, hip add, and hip Treatment abd 10x ea. With legs elevated instructed in SLR 10x Jitendra. Therapeutic Activity 8 Minutes (minutes) Therapeutic Activity 1 Units Therapeutic Activity SpO2 is at 94% to start. Sit to stand transfers with pt Comments using Jitendra arm rests to push up SBA. Gait training with RW and 1 L of O2 60 feet CGA with cues to stay close to RW for safety. SpO2 drops to 86% with cues for proper breathing techniques. Rises to 91% after 2 mins. Total Therapy 13 Minutes Total Physical 1 Therapy Units Daily Note Summary Pt does well with transfers, easily fatigues with gait with SpO2 dropping to 86% with activity on 1 L of O2. Pt could benefit from rehab stay at [facility] to improve strength and stamina for daily activities
--- NOTE | 2024-10-15 10:00 | CM.NOTE ---
Rounds made with Dr. Plascencia, pt will discharge today for skilled therapy at [facility].
--- NOTE | 2024-10-15 10:04 | SWNOTE1 ---
SW received a message from Melva at [facility] and pt is approved to go skilled. SW to speak with pt about transport.
--- NOTE | 2024-10-15 10:17 | SWNOTE1 ---
SW spoke to nurse and pt about transport. Pt's daughter had a yesterday and she was unsure of where daughter was today. At this point SW setting up trips transport to make sure pt has a ride to get to SNF. SW called and set up trips and they will be here between 2:30-3:00 to take pt to [place]. SW let nurse and [place] know time. SW to call daughter.
--- NOTE | 2024-10-15 10:20 | SWNOTE1 ---
SW called pt's daughter, Kamryn, phone rang, but there was no voicemail set up, so SW could not leave message. SW to try again later.
[2024-10-15 11:01] VITALS: PULSE 79; O2SAT 92
== END 2024-10-15 14:10 | DRG 190 ==
LOC: ER 21:42 → MS 10-15 10:18
PROVIDERS: Nurse Practitioner Family; Registered Nurse; Admitting Provider Family Medicine; Emergency Provider Emergency Medicine; PCP Internal Medicine; Visit Provider Family Medicine
DX: J44.1 Chronic obstructive pulmonary disease with (acute) exacerbation (principal); J96.21 Acute and chronic respiratory failure with hypoxia; Z16.21 Resistance to vancomycin; N17.9 Acute kidney failure, unspecified; N39.0 Urinary tract infection, site not specified; R78.81 Bacteremia; M48.54XA Collapsed vertebra, not elsewhere classified, thoracic region, initial encounter for fracture; Z66 Do not resuscitate; B95.2 Enterococcus as the cause of diseases classified elsewhere; B95.8 Unspecified staphylococcus as the cause of diseases classified elsewhere; E78.5 Hyperlipidemia, unspecified; E83.42 Hypomagnesemia; G47.33 Obstructive sleep apnea (adult) (pediatric); R03.0 Elevated blood-pressure reading, without diagnosis of hypertension; Z87.01 Personal history of pneumonia (recurrent); Z87.891 Personal history of nicotine dependence; Z99.81 Dependence on supplemental oxygen; Z79.51 Long term (current) use of inhaled steroids; Z79.52 Long term (current) use of systemic steroids; Z79.899 Other long term (current) drug therapy; Z88.6 Allergy status to analgesic agent; Z95.5 Presence of coronary angioplasty implant and graft
CPT/HCPCS: 36415; 36600; 51702; 71045; 80048; 80053; 82805; 83735; 83880; 84484; 85025; 85610; 85730; 86140; 87040; 87150; 87186; 87804; 87811; 93005; 94640; 94660; 94761; 96374; 96375; 97110; 97161; 97165; 97530; 97535; 99285; J0360; J1650; J1940; J2270; J2405; J2543; J2919; J3475; J7512

== ENCOUNTER 2024-12-07 16:15 | Observation (INO) | payer MEDICARE, MEDICAID, SELFPAY ==
[2024-12-07] VITALS (12 sets, daily range): BP systolic 128–169; BP diastolic 72–80; PULSE 92–107; TEMP 36.6; O2SAT 94–100; BMI 38.1; BMI 37.5
--- NOTE | 2024-12-07 16:22 | ECG_ITS ---
[facility] Test Date: 2024-12-07 Pat Name: GERA PERDUE Department: Room: - Gender: Female Systems Integration Analyst: : 1945 Requested By: Order Number: [id number] Reading MD: CARLOS MANUEL LANGLEY Measurements Intervals [place] Rate: 94 P: 65 RI: 150 QRS: 38 QRSD: 78 T: 43 QT: 338 QTc: 390 Interpretive Statements 1100 Sinus rhythm 8102 Low QRS voltage in chest leads 0102 ARTIFACT PRESENT 9120 atypical ECG Electronically Signed On 12-07-2024 20:23:28 EST by CARLOS MANUEL LANGLEY
--- NOTE | 2024-12-07 16:24 | ED.GENADUL1 ---
HPI HPI - General Adult General Chief complaint: Abdominal Pain Stated complaint: WEAK, N/V Time Seen by Provider: 12/07/24 16:21 Source: patient Mode of arrival: ambulance History of Present Illness HPI narrative: Patient is a 79-year-old female brought to the emergency department by EMS for a 1 week history of nausea and vomiting. Patient has had diffuse upper abdominal pain. She denies fevers, cough or congestion. She has had some shortness of breath with exertion. She has had a previous cholecystectomy. She states at the beginning of the course of her illness she had diarrhea, diarrhea improved with Imodium. She continues to have nausea and vomiting with dry heaving. She has not been able to take her medications because she cannot keep anything down. EMS gave 4 mg of Zofran prior to arrival with minimal improvement, she states she feels more nauseous again. She denies chest pain. No sick contacts in the home. No urinary symptoms. Related Data Home Medications ?Medication ?Instructions ?Recorded ?Confirmed albuterol sulfate 90 mcg/actuation 2 puff inhalation Q4H PRN 08/28/23 12/07/24 aerosol inhaler shortness of breath or wheezing cholecalciferol (vitamin D3) 50 50 mcg PO DAILY 08/28/23 12/07/24 mcg (2,000 unit) tablet pregabalin 75 mg capsule 75 mg PO BID 08/28/23 12/07/24 melatonin 5 mg tablet 5 mg PO QPM 08/14/24 12/07/24 fluticasone fur. 100 mcg-umeclid 1 inh inhalation QAM 09/19/24 12/07/24 62.5 mcg-vilant 25 mcg inhalat.powder (Trelegy Ellipta) alendronate 70 mg tablet 70 mg PO .Weekly 12/07/24 12/07/24 atorvastatin 40 mg tablet 40 mg PO DAILY 12/07/24 12/07/24 bupropion HCl 300 mg 24 hr tablet, 300 mg PO DAILY 12/07/24 12/07/24 extended release cholecalciferol (vitamin D3) 50 2,000 unit PO DAILY 12/07/24 12/07/24 mcg (2,000 unit) capsule clopidogrel 75 mg tablet 75 mg PO DAILY 12/07/24 12/07/24 furosemide 20 mg tablet 20 mg PO DAILY 02/10/25 02/10/25 Previous Rx's ?Medication ?Instructions ?Recorded polyethylene glycol 3350 17 17 g PO DAILY PRN constipation 10/01/24 gram/dose oral powder (Miralax) #510 grams calcitonin (salmon) 200 1 spray intranasal QD #3.7 mL 10/08/24 unit/actuation nasal spray carvedilol 25 mg tablet (Coreg) 25 mg PO BID 30 days #60 tabs 10/15/24 linezolid 600 mg tablet 600 mg PO BID 13 days #26 tabs 10/15/24 Allergies Allergy/AdvReac Type Severity Reaction Status Date / Time aspirin Allergy Severe Hives Verified 12/07/24 16:24 Opioid HPI Opioid Management Most Recent Opioid Data: Last Pain Scale 5 10/15/24 14:00 10/15/24 Last Pain Intensity 2 10/13/24 13:10 10/13/24 Last ORT Total Score 0 10/13/24 00:00 10/13/24 Last ORT Risk Category Low Risk 10/13/24 00:00 10/13/24 Review of Systems ROS Constitutional Denies: fever or chills Ears, nose, mouth, and throat Denies: throat pain or nasal congestion Cardiovascular Denies: chest pain Respiratory Reports: shortness of breath; Denies: cough Gastrointestinal Reports: abdominal pain, nausea, vomiting and diarrhea Integumentary/Breast Denies: rash Neurological Denies: numbness in extremities or weakness in extremities Hematologic/Lymphatic Denies: easy bruising or easy bleeding [facility] Medical History Elevated d-dimer ?R79.89 - Other specified abnormal findings of blood chemistry (ICD-10) Pneumonia ?J18.9 - Pneumonia, unspecified organism (ICD-10) Chronic respiratory failure with hypoxia ?J96.11 - Chronic respiratory failure with hypoxia (ICD-10) Anemia ?D64.9 - Anemia, unspecified (ICD-10) HLD (hyperlipidemia) ?E78.5 - Hyperlipidemia, unspecified (ICD-10) ARMAND (obstructive sleep apnea) ?G47.33 - Obstructive sleep apnea (adult) (pediatric) (ICD-10) COPD (chronic obstructive pulmonary disease) ?J44.9 - Chronic obstructive pulmonary disease, unspecified (ICD-10) HTN (hypertension) ?I10 - Essential (primary) hypertension (ICD-10) Surgical History History of colon surgery ?Z98.890 - Other specified postprocedural states (ICD-10) Family History Grandmother Family history of CHF (congestive heart failure) Family history of cancer Family history of hypertension Family history of myocardial infarction Mother Family history of CHF (congestive heart failure) Family history of cancer Family history of hypertension Family history of myocardial infarction Uncle Family history of COPD (chronic obstructive pulmonary disease) Aunt Family history of cancer Social History Within the past year, how often did you have a drink containing alcohol: never Within the past year, how often did you have six or more drinks on one occasion: never Score interpretation: A score less than 3 is consistent with normal alcohol consumption. 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 Highest level of school completed/degree received: 11th grade Are you now , , , , never or living with a partner: In a typical week, how many times do you talk on the telephone with family, friends, or neighbors: 3 or more times per week How often do you get together with friends or relatives: 3 or more times per week How often do you attend gnosticism or temple services: 1-3 times per year Do you belong to any clubs or organizations such as gnosticism groups unions, fraternal or athletic groups, or school groups: yes Total score: 2 Score interpretation: A score of greater than or equal to 2 indicates the lowest level of social isolation. Little interest or pleasure in doing things: not at all Feeling down, depressed, or hopeless: not at all Feel stressed/tense/nervous/anxious/difficulty sleeping: to some extent Do you think of yourself as: decline to answer Gender Identity: female Exam Narrative Exam Narrative: Gen.: Awake, alert, in no distress Head: Normocephalic, atraumatic ENT: Moist mucous membranes Respiratory: No respiratory distress, lungs clear bilaterally Cardio: Regular rate and rhythm Gastrointestinal: Abdomen is soft, nondistended and nontender to palpation, well-healed surgical scar in the right upper quadrant Extremities: Moves extremities equally, no injuries noted Psych: Normal mood and affect Neuro: No focal neuro deficit Skin: Warm, dry, intact Constitutional Vital Signs, click to edit/add: Last Vital Signs Temp 97.9 F 12/07/24 16:24 Pulse 96 H 12/07/24 18:00 Resp 20 12/07/24 18:00 BP 133/80 12/07/24 18:00 Pulse Ox 97 12/07/24 18:00 O2 Del Method Nasal Cannula 12/07/24 16:24 O2 Flow Rate 3 12/07/24 16:24 Course Vital Signs Vital signs: Vital Signs Blood Pressure 148/75 H 12/07/24 16:21 Temperature 97.9 F 12/07/24 16:24 Pulse Rate 96 H 12/07/24 18:00 Respiratory Rate 20 12/07/24 18:00 Blood Pressure 133/80 12/07/24 18:00 Pulse Oximetry 97 12/07/24 18:00 Oxygen Delivery Method Nasal Cannula 12/07/24 16:24 Oxygen Delivery Flow Rate 3 12/07/24 16:24 Medical Decision Making MDM Narrative Medical decision making narrative: Patient was medicated with additional Zofran and Pepcid in the ER. She was able to tolerate some sips of Sprite but reports she still feels very nauseous and does not feel much better. Laboratory studies reviewed and noted, no significant abnormalities noted. She does have a nitrite positive urinary tract infection and was given IV Rocephin. Additional Compazine given for continued nausea and the patient will be admitted for further evaluation and treatment. Stable at time of admission to hospitalist. SUPERVISED APC VISIT, PHYSICIAN ATTESTATION: Based on the medical record the care appears appropriate. ? Medical Records Medical records reviewed: Yes I reviewed the patient's medical records Lab Data Lab results reviewed: Yes I reviewed the patient's lab results Labs: Lab Results 12/07/24 12/07/24 Range/Units 16:46 18:30 WBC 10.1 (4.0-11.0) 10^3/uL RBC 4.43 (4.20-5.40) 10^6/uL Hgb 11.4 L (12.0-16.0) g/dL Hct 38.4 (36.0-48.0) % MCV 86.7 (81.0-99.0) fL MCH 25.7 L (26.7-34.0) pg MCHC 29.7 L (29.9-35.2) g/dL RDW 18.1 H (11.0-15.0) % Plt Count 328 (150-450) 10^3/uL MPV 8.5 L (9.5-13.5) fL Neut % (Auto) 59.2 (43.0-75.0) % Lymph % (Auto) 29.5 (20.5-60.0) % [place] % (Auto) 8.7 (1.7-12.0) % Eos % (Auto) 1.6 (0.9-7.0) % Baso % (Auto) 0.7 (0.2-2.0) % Neut # (Auto) 6.0 (1.4-6.5) 10^3/uL Lymph # (Auto) 3.0 (1.2-3.8) 10^3/uL [place] # (Auto) 0.9 H (0.3-0.8) 10^3/uL Eos # (Auto) 0.2 (0.0-0.7) 10^3/uL Baso # (Auto) 0.1 (0.0-0.1) 10^3/uL Abs Immat Gran (auto) 0.03 (0.00-0.03) 10^3/uL Imm/Tot Granulo (auto) 0.3 (0.0-0.5) % PT 10.9 (9.0-11.6) sec INR 1.03 VBG pH 7.359 (7.330-7.430) VBG pCO2 57.3 H (40.0-52.0) mmHg Sodium 144 (136-145) mmol/L Potassium 3.8 (3.5-5.1) mmol/L Chloride 104 (98-107) mmol/L Carbon Dioxide 33.4 H (21.0-32.0) mmol/L Anion Gap 10.4 BUN 11.0 (7.0-18.0) mg/dL Creatinine 0.99 (0.55-1.02) mg/dL Est GFR ( Amer) >60 (>=60 mL/min/1.73m^2) Est GFR (Non-Af Amer) 54 L (>=60 mL/min/1.73m^2) BUN/Creatinine Ratio 11.1 Glucose 101 (74-106) mg/dL Lactate 1.1 (0.4-2.0) mmol/L Calcium 9.6 (8.5-10.1) mg/dL Total Bilirubin 0.3 (0.2-1.0) mg/dL AST 13 L (15-37) U/L ALT 14 (14-59) U/L Alkaline Phosphatase 97 (46-116) U/L Troponin I High Sens 7.0 (4.0-51.3) pg/mL NT-Pro-B Natriuret Pep 201.0 (<=1800.0) pg/mL Total Protein 7.5 (6.4-8.2) g/dL Albumin 2.8 L (3.4-5.0) g/dL Globulin 4.7 g/dL Albumin/Globulin Ratio 0.6 Lipase 12.0 L (16.0-77.0) U/L TSH 1.591 (0.358-3.740) uIU/mL Urine Color Yellow (YELLOW) Urine Clarity Clear (CLEAR) Urine pH 5.5 (5.0-9.0) Ur Specific [place] >=1.030 A (1.005-1.025) Urine Protein Negative (NEG/TRACE) mg/dL Urine Glucose (UA) Negative (NEGATIVE) mg/dL Urine Ketones Negative (NEGATIVE) mg/dL Urine Occult Blood Small A (NEGATIVE) Urine Nitrite Positive A (NEGATIVE) Urine Bilirubin Negative (NEGATIVE) Urine Urobilinogen 0.2 (0.2-1.0) EU/dL Ur Leukocyte Esterase Small A (NEGATIVE) Imaging Data CT scan - abdomen: Attestation: I have reviewed the pertinent imaging results. Radiologist's impression: ITS Impressions Abdomen/Pelvis CT 12/07/24 16:42 IMPRESSION: No acute abnormality. Unchanged 0.2 cm left superior pole and 0.4 cm left midportion renal stones. Redemonstration of large mesenteric fat and bowel loops containing left ventral abdominal hernia Electronically authenticated by: CARLEY BHAT Date: 12/07/2024 18:05 Chest X-Ray 12/07/24 16:42 IMPRESSION: No acute cardiopulmonary process. Electronically authenticated by: ZACK LARSON Date: 12/07/2024 18:28 ECG Data Attestation: I personally reviewed and interpreted this ECG as follows: (Normal sinus rhythm at a rate of 94 with artifact present but no acute ST elevation or ectopy. EKG reviewed by attending physician) Discharge Plan Discharge Chief Complaint: Abdominal Pain Clinical Impression: Acute UTI (urinary tract infection), Nausea & vomiting Patient Disposition: Admitted as Observation Time of Disposition Decision: 19:00 Prescriptions / Home Meds: No Action albuterol sulfate 90 mcg/actuation HFA aerosol inhaler 2 puff INHALATION Q4H PRN (Reason: shortness of breath or wheezing) pregabalin 75 mg capsule 75 mg PO BID cholecalciferol (vitamin D3) 50 mcg (2,000 unit) tablet 50 mcg PO DAILY melatonin 5 mg tablet 5 mg PO QPM polyethylene glycol 3350 [Miralax] 17 gram/dose powder 17 g PO DAILY PRN (Reason: constipation) Qty: 510 0RF linezolid 600 mg Tablet 600 mg PO BID 13 Days Qty: 26 0RF carvedilol [Coreg] 25 mg tablet 25 mg PO BID 30 Days Qty: 60 0RF Rx Instructions: must administer with a meal/food Trelegy Ellipta 100-62.5-25 mcg blister with device 1 inh INHALATION QAM calcitonin (salmon) 200 unit/actuation [place],Non-Aerosol 1 spray intranasal QD Qty: 3.7 11RF alendronate 70 mg tablet 70 mg PO .Weekly atorvastatin 40 mg tablet 40 mg PO DAILY bupropion HCl 300 mg tablet extended release 24 hr 300 mg PO DAILY cholecalciferol (vitamin D3) 50 mcg (2,000 unit) capsule 2,000 unit PO DAILY clopidogrel 75 mg tablet 75 mg PO DAILY furosemide 20 mg tablet 20 mg PO DAILY Print Language: Maori Referrals: AMOS SALAS [Primary Care Provider] - 1 week
--- NOTE | 2024-12-07 16:42 | CT_ITS ---
[address] [address] Patient Name: GERA PERDUE MRN: [id number] date: 1945 Sex: F Assigned Patient Location: ER Current Patient Location: ER Accession/Order Number: [id number] Exam Date: 12/07/2024 16:38 Report Date: 12/07/2024 18:05 At the request of: DIONNE GANT Procedure: CT abdomen pelvis wo con EXAM: CT abdomen pelvis wo con HISTORY: nausea and vomiting COMPARISON: 10/01/2024 TECHNIQUE: Axial CT imaging was performed through the abdomen and pelvis without intravenous contrast. Multiplanar reformats were performed. Dose reduction techniques were achieved by using automated exposure control and/or adjustment of mA and/or kV according to patient size and/or use of iterative reconstruction technique. FINDINGS: Lung bases: Persistent right basilar opacity, may represent atelectasis and/or consolidation. GI upper: Small hiatal hernia. Liver: Normal size and contour. Gallbladder: No significant abnormality. No cholelithiasis. Biliary system: No intra or extrahepatic biliary ductal dilatation. Spleen: Normal size. Pancreas: Unremarkable. Adrenal glands: Normal adrenal glands. Kidneys/ureters: Normal contours. No hydronephrosis. Unchanged 0.2 cm left superior pole and 0.4 cm left midportion renal stones. Vessels: No aneurysm. Lymph Nodes: No lymphadenopathy. Small bowel: No wall thickening or dilatation. Colon: No wall thickening or dilatation. Appendix: No findings of appendicitis. Peritoneal cavity: No free fluid or pneumoperitoneum. Lower : Unremarkable. Bones: No acute bony abnormality. Soft tissues: Redemonstration of large mesenteric fat and bowel loops containing left ventral abdominal hernia Additional findings: None. CT/CT abdomen pelvis wo con IMPRESSION: No acute abnormality. Unchanged 0.2 cm left superior pole and 0.4 cm left midportion renal stones. Redemonstration of large mesenteric fat and bowel loops containing left ventral abdominal hernia Electronically authenticated by: CARLEY BHAT Date: 12/07/2024 18:05
--- NOTE | 2024-12-07 16:42 | XR_ITS ---
The [address] [address] Patient Name: GERA PERDUE MRN: [id number] date: 1945 Sex: F Assigned Patient Location: ED.MAIN Current Patient Location: ER Accession/Order Number: [id number] Exam Date: 12/07/2024 16:38 Report Date: 12/07/2024 18:28 At the request of: DIONNE GANT Procedure: XR chest 1V EXAMINATION: XR chest 1V, , 12/07/2024 1:38 PM PST INDICATION: Weakness HISTORY: Ordering Provider Reason for Exam: Weakness Technologist Note: Additional: COMPARISON: Chest x-ray dated 10/15/2024. TECHNIQUE: Chest x-ray: One view. FINDINGS: No pneumothorax, pleural effusion or focal airspace consolidation. Stable enlarged cardiac silhouette is seen. Bony thorax is unremarkable. XR/XR chest 1V IMPRESSION: No acute cardiopulmonary process. Electronically authenticated by: ZACK LARSON Date: 12/07/2024 18:28
[2024-12-07] MEDS: 0.9 % SODIUM CHLORIDE 1,000 ML 250 ML IV (16:43)
[2024-12-07] MEDS: ONDANSETRON PF 4 MG/2 ML VIAL IV (16:45)
[2024-12-07] MEDS: FAMOTIDINE/PF 20 MG/2 ML VIAL IV (16:45)
[2024-12-07 16:57] LABS: Basophils Absolute Auto 0.1 10^3/uL (0.0-0.1); Basophils Percent Auto 0.7 % (0.2-2.0); Eosinophils Absolute Auto 0.2 10^3/uL (0.0-0.7); Eosinophils Percent Auto 1.6 % (0.9-7.0); Hematocrit 38.4 % (36.0-48.0); Hemoglobin 11.4 g/dL (12.0-16.0); Immature Granulocytes Abs Auto 0.03 10^3/uL (0.00-0.03); Immature Granulocytes Pct Auto 0.3 % (0.0-0.5); Lymphocytes Percent Auto 29.5 % (20.5-60.0); Mean Corpuscular HGB Conc 29.7 g/dL (29.9-35.2); Mean Corpuscular Hemoglobin 25.7 pg (26.7-34.0); Mean Corpuscular Volume 86.7 fL (81.0-99.0); Mean Platelet Volume 8.5 fL (9.5-13.5); Monocytes Absolute Auto 0.9 10^3/uL (0.3-0.8); Monocytes Percent Auto 8.7 % (1.7-12.0); Neutrophils Percent Auto 59.2 % (43.0-75.0); Platelet Count 328 10^3/uL (150-450); Red Blood Count 4.43 10^6/uL (4.20-5.40); Red Cell Distribution Width 18.1 % (11.0-15.0); White Blood Count 10.1 10^3/uL (4.0-11.0)
[2024-12-07 17:05] LABS: PCO2 VBG 57.3 mmHg (40.0-52.0); pH VBG 7.359 (7.330-7.430)
[2024-12-07 17:08] LABS: INR 1.03; Prothrombin Time 10.9 sec (9.0-11.6)
[2024-12-07 17:19] LABS: Lactate/Lactic Acid 1.1 mmol/L (0.4-2.0)
[2024-12-07 17:21] LABS: Alanine Aminotransferase 14 U/L (14-59); Albumin Globulin Ratio 0.6; Albumin Level 2.8 g/dL (3.4-5.0); Alkaline Phosphatase 97 U/L (46-116); Anion Gap 10.4; Aspartate Amino Transferase 13 U/L (15-37); BUN Creatinine Ratio 11.1; Bilirubin Total 0.3 mg/dL (0.2-1.0); Calcium 9.6 mg/dL (8.5-10.1); Carbon Dioxide 33.4 mmol/L (21.0-32.0); Chloride 104 mmol/L (98-107); Estimated GFR (African America >60 (>=60 mL/min/1.73m^2); Estimated GFR (Non-African Ame 54 (>=60 mL/min/1.73m^2); Globulin 4.7 g/dL; Glucose 101 mg/dL (74-106); Potassium 3.8 mmol/L (3.5-5.1); Sodium 144 mmol/L (136-145); Thyroid Stimulating Hormone 1.591 uIU/mL (0.358-3.740); Total Protein 7.5 g/dL (6.4-8.2)
[2024-12-07 18:38] LABS: Bilirubin Urine NEGATIVE (NEGATIVE); Blood Urine SMALL (NEGATIVE); Clarity Urine CLEAR (CLEAR); Color Urine YELLOW (YELLOW); Glucose Urine UA NEGATIVE (NEGATIVE); Ketones Urine NEGATIVE (NEGATIVE); Leukocyte Esterase Urine SMALL (NEGATIVE); Nitrite Urine POSITIVE (NEGATIVE); Protein Urine NEGATIVE (NEG/TRACE); Specific Gravity Urine >=1.030 (1.005-1.025); Urobilinogen Urine 0.2 EU/dL (0.2-1.0); pH Urine 5.5 (5.0-9.0)
[2024-12-07 18:57] LABS: Bacteria Urine LARGE #/HPF (NONE SEEN); Cast Seen? NONE SEEN #/LPF (NONE SEEN); Crystals Seen? None Seen #/HPF (None Seen); Mucus Urine NONE SEEN (NONE SEEN); RBC Urine 0-2 #/HPF (0-2); Squamous Epithelial Cell Urine FEW #/LPF (NONE/RARE); Urine Culture Indicated YES
[2024-12-07] MEDS: PROCHLORPERAZINE 10 MG/2 ML VIAL 5 MG IV (19:14)
[2024-12-07] MEDS: CEFTRIAXONE 2,000 MG in 0.9 % SODIUM CHLORIDE 100 ML 200 MG IV (19:14)
--- OUTSIDE RECORDS SUMMARY | 2024-12-07 20:08 | XMS_ITS | CCD ---
Author Organization [facility] Care Team Providers Care Electronic Operator Name Role Phone Mely Camarillo Unavailable Unavailable CRYS BARBOZA Consulting Unavailable VERENICE CHILEL Admitting Unavailable ELLEN GONZALEZ Attending Unavailable GENERIC, PHYSICIAN Primary Care Unavailable JIMMY GUZMAN Referring Unavailable DANGELO LOZA Consulting U navailable Generic, Physician Primary Care Provider Unavail able Jorge A Jackson Unavailable Tanya Guerrero Unavailable DO Gustavo Salas Primary Care Provider [phone] DO Hilario Yeung Emergency Provider Unavai DO Gustavo Hernandez Primary Care Provider DO Richard Pearson Emergency Provider [phone] ETHAN Morrissey Emergency Provider [phone] MD Jolanta Mckenzie Admit Provider MD Jolanta Mckenzie Attending Provider MD Jesus Alberto Aquino Attending Provider Dr. Charlie Mondragon II Attending Unavailable LAKSHMIPATHY ., NARENDRANATH Admitting Sahra vailable LAKSHMIPATHY ., NARENDRANATH Attending Sahra vailable DR SVITLANA HAMMOND Primary Care Unavailable DO Gustavo Salas Primary Care Provider Karen [facility]ie E Emergency Provider [phone] DO Marshall Dominguez Emergency Provider [phone] MD Jloanta Mckenzie Admit Provider MD Jolanta Mckenzie Attending Provider DO Maury Morrissey Emergency Provider [phone] MD Jesus Alberto Aquino Admit Provider MD Jesus Alberto Aquino Attending Provider [employer]URANCE CLAIMS EXAMINER, Mely A Primary Care Provid er Gustavo Salas DO Primary Care Provider [phone] Aubrey METZ, Leah Unavailable Gustavo Salas DO Primary Care Provider [phone] GUSTAVO SALAS Primary Care Physician Unavail able DO Gustavo Salas Primary Care Provider MD Jenna Engle [facility] E Emergency Provider MD Lucho Grullon Admit Provider MD Lucho Grullon Attending Provider [phone] JENNA ENGLE Attending Unavailable MARITZA, GUSTAVO A Primary Care Unavailable JENNA ENGLE Attending Unavailable JENNA ENGLE Referring Unavailable MARITZA, GUSTAVO A Primary Care Unavailable MD Michoacano Mckenzie Attending Provider [phone] Renae Ponce Attending Unavailable MARITZA, GUSTAVO A Referring Unavailable OrRenae schneider Attending Unavailable OrRenae schneider Admitting Unavailable MARIELA, RABBIA L Referring Unavailable [...] Unavailable VONTHRON, MELY A Primary Care Unavailable SUSANA VELAZQUEZ Referring Unavailable VONTHRON, MELY A Primary Care Unavailable EWRY, ANAER Referring Unavailable VONTHRON, MELY A Primary Care Unavailable SEA, NOE Durham Attending Unavailable CASE, NOE Durham Referring Unavailable VONTHRON, MELY A Primary Care Unavailable CASE, NOE Durham Attending Unavailable CASE, NOE Durham Referring Unavailable VONTHRON, MELY A Primary Care Unavailable TITOKIMMARKELL Moody Referring Unavailable OOSTRACECELIA E Attending Unavailable OOSTRA, CECELIA E Referring Unavailable VONTHRON, MELY A Primary Care Unavailable OOSTRA, CECELIA E Attending Unavailable OOSTRA, CECELIA E Referring Unavailable VONTHRON, MELY A Primary Care Unavailable ASHLEY MOONEY K Attending Unavailable HEASHLEY VARGHESE K Referring Unavailable VONTHRON, MELY A Primary Care Unavailable JENNIFER MENA Attending Unavailable JENNIFER MENA Admitting Unavailable DAVID MOTTA Referring Unavailable VONTHRON, MELY A Primary Care Unavailable HYUN MORENO Consulting Unavailable (TTH ONLY), NEURO-CONSULTING Consulting Sahra dottyble TACHO SOTO Consulting Unavailable JEANNETTE SMART Consulting Unavailable DEVONTE [...] Unavailable VONTHRON, MELY A Primary Care Unavailable GUSTAVO SALAS A Primary Care Unavailable RUDI ZELAYA Attending [...] Attending Unavailable MARITZA GUSTAVO A Referring Unavailable MARITZA GUSTAVO A Primary Care Unavailable TODD POSEY JR Referring Unavailable GUSTAVO SALAS Primary Care Unavailable VALONE JR, TODD L Referring Unavailable MARITZA, GUSTAVO A Primary Care Unavailable VALONE JR TODD L Referring Unavailable MARITZA, GUSTAVO A Primary Care Unavailable VALONE JR, TODD L Referring Unavailable MARITZA, GUSTAVO A Primary Care Unavailable MARITZA, GUSTAVO A Referring Unavailable MARITZA, GUSTAVO A Primary Care Unavailable HUFDHI, RAIED Referring Unavailable MARITZA, GUSTAVO A Primary Care Unavailable RESER, KEIKO FERNANDEZ Referring Unavailabl e MARITZA, GUSTAVO A Primary [...] Primary Care Unavailable KALYAN BARBOZA Attending Unavailable MARITZA, GUSTAVO Person Attending Unavailable GUSTAVO SALAS Referring Unavailable LILLIAM CHEEK Attending Unavailable KALYAN BARBOZA Attending Unavailable GUSTAVO SALAS Referring Unavailable GUSTAVO SALAS Attending Unavailable MARITZA, GUSTAVO A Referring Unavailable MARITZA, GUSTAVO A Referring Unavailable MARITZA, GUSTAVO A Attending Unavailable MARITZA, GUSTAVO A Referring Unavailable GUSTAVO SALAS Attending Unavailable MARITZA, GUSTAVO A Referring Unavailable MARITZA, GUSTAVO A Attending Unavailable MARITZA, GUSTAVO A Referring Unavailable MARITZA, GUSTAVO A Referring Unavailable MARITZAGUSTAVO LEMUS A Attending Unavailable Gustavo Salas DO Unavailable Jenna Engle Attending Unavailable Gustavo Salas Primary Care Unavailable Jenna Engle Admitting Unavailable Gustavo Salas Primary Care Unavailable Michoacano Mckenzie Attending Unavailab Lucho Yoder Admitting Unavailable JENNA ENGLE Referring Unavailable GUSTAVO SALAS Primary Care Unavailable Gustavo Salas DO Primary Care Provider Allergies Allergy Classification Reported Allergen(s) Allergy Type Date of Onset Reaction(s) Facility (15 sources) Acetaminophen / oxyCODONE; Translations: [acetaminophen-ox ycodone] Drug Allergy 3 vomiting [employer] Other (20 sources) Aspirin; Translations: [aspirin] Drug Allergy 9 Other, Nausea/vomiting , Nausea And Vomiting, Other (See Comments) [facility] (18 sources) Acetaminophen / oxyCODONE; Translations: [OXYCODONE-ACETAM INOPHEN] Drug Allergy 3 GI intolerance [facility] (4 sources) Ibuprofen; Translations: [IBUPROFEN] Drug Allergy 4 Nausea/vomiting [facility] (17 sources) Acetaminophen; Translations: [acetaminophen] Drug Allergy 4 GI intolerance [facility] (20 sources) oxyCODONE; Translations: [OXYCODONE] Drug Allergy 1 GI intolerance, Vomiting [facility] (1 source) Acetaminophen / oxyCODONE; Translations: [acetaminophen-ox ycodone] Drug Allergy [facility] Repository Medications Current Medications Medication Drug Class(es) Dates Sig (Normalized) Sig (Original) acetaminophen 500 mg oral tablet (20 sources) Start: 09-20-2023 take 2 tablets by mouth every four hours as needed for pain and fever acetaminophen (TYLENOL EXTRA STRENGTH) 500 mg tablet Take 2 tablets (1,000 mg total) by mouth every 4 (four) hours as needed for pain or fever. 09/20/2023 Active Start: 09-05-2020 End: 09-21-2020 take [...] from all sources in 24 hours. take 2 tablets by mo uth every four hours as needed for pain acetaminophen (TYLENOL) 325 mg tablet Take 2 tablets (650 mg total) by mouth every 4 (four) hours as needed for pain. Active take 1 tablet by nika th every eight hours as needed acetaminophen (Tylenol) 500 MG tablet Take 1 tablet by mouth every 8 (eight) hours if needed. Active take 2 capsules by m outh every eight hours Acetaminophen 500 MG 2 capsules as needed Orally every 8 hrs PRN Active [id number] 200 actuat albuterol 0.09 mg/actuat metered dose inhaler (20 sources) beta2-Adrenergic Agonist Start: 05-22-2024 take 2 puff(s) by inhalation every four hours for wheezing albuterol HFA (Ventolin HFA) 90 mcg/act inhaler Indications: Chronic obstructive pulmonary disease, unspecified COPD type (CMS/HCC) Inhale 2 puffs every 4 (four) hours if needed for wheezing or shortness of breath 8 g 5 05/22/2024 Active Start: 02-15-2024 Albuterol Sulf ate Active 2 INH INHALATION Q4H February 15, 2024 12:00am administer with spacer Start: 12-30-2023 take 2 puff(s) by in halation every four hours as needed albuterol (PROVENTIL HFA;VENTOLIN HFA) 90 mcg/actuation inhaler Inhale 2 puffs every 4 (four) hours as needed. 12/30/2023 Active Start: 04-01-2023 End: 12-09-2023 take 2 puff(s) [...] Start Date: 01/30/24 Status: Ordered Start: 01-30-2024 take 3 mL by inhalat ion in the morning ipratropium-albuteroL (DUONEB) 0.5 mg-3 mg(2.5 mg base)/3 mL nebulizer Inhale 3 mL in the morning and 3 mL before bedtime. 01/30/2024 Active Start: 01-30-2024 albuterol-ipra tropium Inh Sarah Beth [...] (20 sources) Bisphosphonate Start: 05-30-2023 End: 12-29-2024 alendronate (FOSAMAX) 70 mg tablet Take 1 tablet (70 mg total) by mouth every 7 days. Give every Saturday. 05/30/2023 Active Start: 09-21-2020 End: 12-09-2023 take [...] tablet (20 sources) HMG-CoA Reductase Inhibitor Start: 10-23-2023 take 1 tablet by mouth once daily atorvastatin (LIPITOR) 40 mg tablet HOLD until completion of daptomycin therapy. Previous instructions: Take 1 tablet (40 mg total) by mouth nightly. 10/23/2023 Active Start: 04-28-2020 End: 09-21-2020 atorvastatin 40 [...] 4 days benzonatate 100 mg oral capsule (4 sources) Non-narcotic Antitussive Start: 09-23-2024 take 1 [...] split.. 90 tablet 3 09/03/2024 Active Start: 02-10-2024 take 1 tablet by nika th once daily in the morning buPROPion XL (WELLBUTRIN XL) 300 mg 24 hr tablet Take 1 tablet (300 mg total) by mouth every morning. 02/10/2024 Active Start: 02-10-2024 take 1 tablet by nika th every twenty-four hours in the morning buPROPion XL (Wellbutrin XL) 300 MG 24 hr tablet Indications: Recurrent major depressive disorder, in partial remission (HCC) (CMS/HCC) TAKE 1 TABLET BY MOUTH IN THE AM 90 tablet 3 02/10/2024 Active Start: 01-01-2019 End: 09-21-2020 take 300 mg by mouth once daily in the morning Bupropion Hcl Active 300 MG PO Every morning September 21, 2020 1:00am End: 08-02-2019 take 1 tablet by mouth twice daily buPROPion (WELLBUTRIN SR) 100 MG SR tablet Take 100 mg by mouth 2 times daily. 0 08/02/2019 Discontinued (LIST CLEANUP) cefdinir 300 mg oral capsule (7 sources) Cephalosporin Antibacterial Start: 09-23-2024 take 1 [...] day(s), # 14 cap(s), Refills(s) 0, Pharmacy: [id number], 170, cm, 01/30/24 13:39:00 [...] Daily 90 capsule 3 09/03/2024 Active Start: 12-17-2023 take 1 capsule by mo [facility] once in the morning cholecalciferol (Vitamin D-3) 50 MCG (2000 UT) capsule Indications: Vitamin D deficiency Take 1 capsule (50 mcg) by mouth in the morning. 90 capsule 3 12/17/2023 Active Start: 09-21-2020 take 2000 [IU] by mo txh once daily Cholecalciferol (Vitamin D3) Active 2000 UNIT PO Daily September 21, 2020 1:00am Start: 08-31-2020 End: 09-21-2020 take 50 ug by mouth once daily Cholecalciferol (Vitami n D3) Discontinued 50 MCG PO Daily August 31, 2020 1:00am September 21, 2020 1:41pm take 1 capsule by mo [facility] in the morning cholecalciferol, vitamin D3, 2,000 units capsule Take 1 capsule (2,000 Units total) by mouth in the morning. Active [facility] cholecalciferol, vitamin D3, 75 mcg (3,000 unit) tablet Take by mouth. 1 TAB BID Active clopidogrel 75 mg oral tablet (20 sources) P2Y12 Platelet Inhibitor Start: 12-31-2022 take 1 tablet by mouth in the morning clopidogreL (PLAVIX) 75 mg tablet Take 1 tablet (75 mg total) by mouth in the morning. 0 09/01/2023 Active cyclobenzaprine hydrochloride 5 mg oral tablet (5 sources) Muscle Relaxant Start: 10-01-2024 take 1 [...] Active doxycycline hyclate 100 mg oral capsule (20 sources) Tetracycline-cla ss Drug Start: 06-17-2023 End: 07-10-2023 take 1 capsule by mouth twice daily doxycycline (Vibramycin) 100 MG capsule TAKE 1 CAPSULE BY MOUTH 2 TIMES A DAY FOR 7 DAYS 06/17/2023 Active 0.4 ml enoxaparin sodium 100 mg/ml prefilled syringe (1 source) Low Molecular Weight Heparin Start: 08-02-2019 enoxaparin (LOVENOX) injection 40 mg famotidine 40 mg oral tablet (20 sources) Histamine-2 Receptor Antagonist Start: 02-15-2024 take [...] Daily July 10, 2023 12:00am Start: 04-01-2023 take 1 puff(s) by inhalation once daily apxxvjwpcez-lcpgrnlfy-csrzvqhj (TRELEGY ELLIPTA) 100-62.5-25 mcg blister with device Inhale 1 puff once daily. 0 04/01/2023 Active Start: 04-01-2023 End: 12-09-2023 take 1 puff(s) by inhalation in the morning Algezduzoep-Xrmbnspea-Cayvre (Trelegy Ellipta) 100-62.5-25 MCG/ACT aerosol powder Indications: Panlobular emphysema (CMS/HCC) Inhale 1 puff in the morning. 1 each 04/01/2023 12/09/2023 Discontinued (Other) Start: 02-23-2020 End: 04-25-2020 Kntwcpxquha-Loswhfwqr-Mtpigy er (Trelegy Ellipta) 100-62.5-25 mcg blister with device Discontinued 1 PUFF INHALATION As Directed February 22, 2020 11:00pm April 25, 2020 5:58pm Start: 02-23-2020 End: 04-25-2020 Pdqalbqqarv-Ehszudehk-Vuczin er (Trelegy Ellipta) 100-62.5-25 mcg blister with device Discontinued 1 PUFF INHALATION As Directed February 23, 2020 12:00am April 25, 2020 6:58pm take 1 puff(s) by inhalation once daily Trelegy Ellipta 100-62.5-25 MCG/INH 1 pu ff Inhalation Once a day for 30 days Active Vrhkoutebql-Dazfrawfo-Dwgoki (Trelegy Ellipta) 200-62.5-25 MCG/ACT aerosol powder (12 sources) take 1 puff(s) by inhalation once daily Xznojznshit-Cifmjcpxp-Bgneiz (Trelegy Ellipta) 200-62.5-25 MCG/ACT aerosol powder Inhale [...] PO Daily August 17, 2023 6:52pm Start: 08-17-2023 take 1.5 tablets by mouth once daily furosemide (LASIX) 40 mg tablet Take 1.5 tablets (60 mg total) by mouth daily. 08/17/2023 Active Start: 06-17-2023 End: 08-17-2023 take 1 tablet [...] other day levoFLOXacin 500 mg oral tablet (18 sources) Quinolone Antimicrobial Start: 11-28-2023 take 1 [...] 6:35pm loperamide hydrochloride 2 mg oral capsule (18 sources) Opioid Agonist Start: 02-25-2024 take 1 capsule by mouth four times daily as needed for diarrhea loperamide (IMODIUM) 2 mg capsule Take 1 capsule (2 mg total) by mouth 4 (four) times a day as needed for diarrhea. 30 capsule 02/25/2024 Active magnesium oxide 400 mg oral tablet (14 sources) Start: 10-23-2023 magnesium oxid e (Mag-Ox) 400 (240 Mg) MG tablet 10/23/2023 Active melatonin 5 mg oral capsule (20 sources) Start: 09-03-2024 Melatonin 5 MG capsule [...] 0 Start Date: 01/30/24 Status: Ordered Start: 12-17-2023 Melatonin 5 MG capsule Indications: Insomnia, unspecified type Take 1 tablet by mouth as needed at bedtime (for sleep) 90 capsule 3 12/17/2023 Active Start: 07-11-2023 take 1 tablet by nika th once daily as needed for sleep melatonin (CIRCADIN) tablet Take 5 mg by mouth nightly as needed for sleep. 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 Active take 1 tablet by nika th once daily metoprolol (LOPRESSOR) 100 MG tablet Take 100 mg by mouth daily 0 Active morphine injection 2 mg (1 source) Start: 08-02-2019 morphine injection 2 mg Multivitamin Adults 50+ - (5 sources) Start: 03-19-2019 take 1 tablet by mouth once daily Multivitamin Adults 50+ - 1 tab(s) Orally Daily February, Active nitrofurantoin, macrocrystals 25 mg / nitrofurantoin, monohydrate 75 mg oral capsule (1 source) Nitrofuran Antibacterial Start: 06-22-2024 End: 06-27-2024 take 1 capsule by mouth in the morning nitrofurantoin, macrocrystal-monoh ydrate, (Macrobid) 100 MG capsule Indications: Failed back surgical syndrome Take 1 capsule (100 mg) by mouth in the morning and 1 capsule (100 mg) before bedtime. Do all this for 5 days. 10 capsule 06/22/2024 06/27/2024 Active nystatin 100 unt/mg topical powder (20 sources) Polyene Antifungal Start: 05-06-2024 nystatin (Mycostatin) 766649 UNIT/GM powder Indications: Rash Apply topically 2 (two) times a day 60 g 1 05/06/2024 Active Start: 01-30-2024 nystatin Top 1 00,000 units/g Pwdr Refill(s) 0 Start Date: 01/30/24 Status: Ordered Start: 06-17-2023 nystatin (MYCO STATIN) powder Apply 1 Application topically in the morning and 1 Application before bedtime. Apply to abdominal folds and breast. . 06/17/2023 Active Start: 06-17-2023 nystatin (Myco statin) 381915 UNIT/GM powder Indications: Rash APPLY TOPICALLY TO [...] 5:24pm ondansetron 4 mg disintegrating oral tablet (9 sources) Serotonin-3 Receptor Antagonist Start: 08-14-2024 ondansetron [...] tablet (20 sources) Proton Pump Inhibitor Start: 09-02-2023 take 1 tablet by mouth once daily before breakfast pantoprazole (PROTONIX) 40 mg EC tablet Take 1 tablet (40 mg total) by mouth every morning before breakfast. 09/02/2023 Active Start: 01-01-2019 End: 09-21-2020 take 1 tablet by mouth once daily Pantoprazole (Protonix) 40 mg tablet,delayed release (DR/EC) Active 40 MG PO Daily September 21, 2020 1:38pm PARoxetine hydrochloride 40 mg oral tablet (20 sources) Serotonin Reuptake Inhibitor Start: 01-30-2024 paroxetine Oral, Refills(s) 0 Start Date: 01/30/24 Status: Ordered Start: 04-03-2023 take 1 tablet by nika th once daily in the morning PARoxetine (PAXIL) 40 mg tablet Take 1 tablet (40 mg total) by mouth every morning. 04/03/2023 Active Start: 11-15-2017 End: 09-21-2020 take 1 tablet by mouth once daily in the morning Paroxetine Hcl (Paxil) 40 mg tablet Active 40 MG PO Every morning September 21, 2020 1:38pm polyethylene glycol 3350 62669 mg powder for oral solution (4 sources) Osmotic Laxative Start: 10-02-2024 polyethylene glycol, PEG, 3350 (Glycolax) 17 GM/SCOOP powder take 17 gms BY MOUTH DIRECTED EVERY DAY NEEDED FOR CONSTIPATION 10/02/2024 Active predniSONE 20 mg oral tablet (20 sources) Start: 02-25-2024 take 2 tablets by mouth in the morning predniSONE (DELTASONE) 20 mg tablet Take 2 tablets (40 mg total) by mouth in the morning. 10 tablet 02/25/2024 Active Start: 08-02-2023 take 1 tablet [...] MG PO Daily 10 02July 14, 2023 12:00August 20, 2023 1:29pm 20mg daily for 3 [...] food or milk pregabalin 75 mg oral capsul e (20 sources) Start: 01-30-2024 pregabalin Ora l, Refills(s) 0 Start Date: 01/30/24 Status: Ordered Start: 11-29-2022 End: 06-22-2024 take 1 capsule by mouth in the morning, then take 1 capsule by mouth at bedtime pregabalin (LYRICA) 75 mg capsule Take 1 capsule (75 mg total) by mouth in the morning and 1 capsule (75 mg total) before bedtime. 11/29/2022 Active Start: 02-23-2020 End: 09-21-2020 take 75 mg by mouth twice daily Pregabalin Discontinue d 75 MG PO Twice daily 6 February 25, 2020 1:29pm April 25, 2020 5:24pm QUEtiapine 50 mg oral tablet (4 sources) Atypical Antipsychotic Start: 10-23-2023 take 1 tablet by mouth once daily QUEtiapine (SEROquel) 50 mg tablet Take 1 tablet (50 mg total) by mouth nightly. 0 10/23/2023 Active sennosides, mcfp 8.6 mg oral tablet (2 sources) Start: 09-21-2020 take 1 tablet by mouth once daily at bedtime Sennosides (Senna Lax) 8.6 mg Tablet Active 1 TAB PO Daily at bedtime September 21, 2020 12:00am 1000 ml sodium chloride 9 mg/ml injection (15 sources) Start: 10-04-2023 sodium chlorid e 0.9 % solution 10/04/2023 Active Start: 08-02-2019 Intravenous, a t 100 mL/hr, CONTINUOUS, Starting 08/02/19 at 0030 solifenacin succinate 10 mg oral tablet (14 sources) Cholinergic Muscarinic Antagonist Start: 01-10-2024 take 1 tablet by mouth once daily solifenacin (VESIcare) 10 MG tablet Indications: Female incontinence Take 1 tablet (10 mg) by mouth Daily Swallow tablet whole; do not crush, chew, or split. 90 tablet 1 01/10/2024 Active 1 ml triamcinolone acetonide 40 mg/ml prefilled syringe (20 sources) Corticosteroid Start: 06-22-2024 triamcinolone acetonide (Kenalog-40) injection 40 mg Start: 12-26-2022 Triamcinolone Acetonide Active 1 APPLIC TOPICAL Twice daily December 26, 2022 1:00am Start: 06-19-2017 Kenalog -40 mg May, 40 mg triamcinolone (K ENALOG) 0.1 % cream Apply 1 Application topically in the morning and 1 Application before bedtime. Active Completed/Discontinued Medications Medication Drug Class(es) Dates Sig (Normalized) Sig (Original) acetaminophen 325 mg / HYDROcodone bitartrate 5 mg oral tablet (20 sources) Opioid Agonist Start: 10-02-2024 End: 10-06-2024 take 1 tablet by mouth every six hours as needed for pain HYDROcodone-acetami nophen ([place]) 5-325 MG tablet TAKE 1 TABLET BY MOUTH EVERY 6 HOURS NEEDED FOR PAIN FOR 3 DAYS 10/02/2024 10/06/2024 Discontinued (Ineffective) Start: 01-15-2020 End: 02-23-2020 take 1 tablet by mouth every four to six hours Hydrocodone-Acetaminophen ([place]) 5-325 mg tablet Discontinued 1 TAB PO EVERY 4-6 HOURS 07 30January 15, 2020 February 23, 2020 2:44pm Start: 08-02-2019 HYDROcodone-ac etaminophen ([place]) 5-325 MG per tablet 1 tablet Start: 01-02-2019 End: 01-12-2019 take 1 tablet by mouth every six hours Hydrocodone-Acetaminophen ([place]) 5-325 mg tablet Discontinued 1 TAB PO Q6H 16 03January 02, 2019 January 12, 2019 6:44am Start: 06-22-2018 End: 08-01-2019 take 1 tablet by mouth every four to six hours Hydrocodone-Acetaminophen ([place]) 5-325 mg tablet Discontinued 1 TAB PO [...] D2 Compound Start: 04-28-2020 End: 12-26-2022 take 34851 [IU] by mouth every month Ergocalciferol (Vitamin D2) Discontinued 45627 UNIT PO every month April 28, 2020 [...] application Externally Twice a day prn Active Jzsnauazahtu-Iqqdcetd-Ufikyj (Multivitamin 50 Plus) Tablet (10 sources) Start: 02-23-2020 End: 04-25-2020 Gsryouosgglb-Hbbfsuxe-Agjbmc (Multivitamin 50 Plus) Tablet Discontinued 1 TAB PO Daily February 22, 2020 11:00pm April 25, 2020 5:58pm Start: 02-23-2020 End: 04-25-2020 Hbsqejltwxac-Qlrkwbbj-Bxmwkt (Multivitamin 50 Plus) Tablet Discontinued 1 TAB [...] DOSES CALL 911 Sublingual as needed Active [place]-3 Fatty Acids-Fish Oil (Fish Oil) 300-1,000 mg capsule (10 sources) Start: 08-01-2019 End: 02-23-2020 take 1 capsule by mouth once daily [place]-3 Fatty Acids-Fish Oil (Fish Oil) 300-1,000 mg capsule Discontinued 1000 MG PO Daily July 31, 2019 11:00pm February 23, 2020 3:42pm Start: 08-01-2019 End: 02-23-2020 take 1 capsule by mouth once daily [place]-3 Fatty Acids-Fish Oil (Fish Oil) 300-1,000 mg [...] September 21, 2020 December 26, 2022 11:27pm microencapsulated potassium chloride 10 meq extended release oral tablet (20 sources) Start: 05-22-2024 End: 06-22-2024 potassium chloride CR (Klor-Con M10) 10 MEQ ER tablet Indications: Pleural effusion on left , Shortness of breath Take 2 tablets (20 mEq) by mouth Daily Do not crush or chew. 60 tablet 05/22/2024 06/22/2024 Discontinued (Therapy completed) Start: 02-15-2024 take 20 mEq by mouth once abby y Potassium Chloride Active 20 MEQ PO Daily February 15, 2024 12:00am Start: 01-30-2024 potassium chlo ride 10 mEq Cap-ER Refills(s) 0 Start Date: 01/30/24 Status: Ordered Start: 09-01-2023 potassium chlo ride (KLOR-CON SPRINKLE) 10 MEQ CR capsule Take 2 capsules (20 mEq total) by mouth in the morning. 09/01/2023 Active take 1 tablet by nika once daily potassium chloride CR 10 mEq ER tablet Take 1 tablet (10 mEq) by mouth once daily. Do not crush, chew, or split. Active Pt Unable To Verify (10 sources) Start: 08-31-2020 End: 09-05-2020 Pt Unable To Verify Disconti nued August 31, 2020 12:00am September 05, 2020 [...] at bedtime 30 September 21, 2020 12:00am December 26, 2022 [...] [Cerebral infarction, unspecified] 04-26-2020 Chronic Anxiety disorders (20 sources) Anxiety; Translations: [Anxiety disorder, unspecified] Onset: 3 10-07-2023 Chronic Bacterial infection; unspecified site (2 sources) Streptococcal infection, unspecified site; Translations: [Resistance to vancomycin] Onset: 4 Episodic Calculus of urinary tract (5 sources) Kidney stone; Translations: [Calculus of kidney] Episodic Cardiac dysrhythmias (20 sources) Longstanding persistent atrial fibrillation; Translations: [Longstanding persistent atrial fibrillation] Onset: 9 Resolved: 4 08-02-2019 Chronic Chronic kidney disease (20 sources) Chronic kidney disease stage 3A ; [...] 4 09-06-2020 Chronic Chronic ulcer of skin (20 sources) Non-pressure chronic ulcer of other part of left foot with fat layer exposed; Translations: [Ulcer of other part of foot] Onset: 3 Resolved: 4 10-07-2023 Chronic Congestive heart failure; nonhypertensive (20 sources) Congestive heart failure; Translations: [Heart failure, unspecified] Onset: 4 Resolved: 4 06-25-2023 Chronic Coronary atherosclerosis and other heart disease (20 sources) Coronary arteriosclerosis; Translations: [Disorder of cardiovascular system] Onset: 9 08-02-2019 Chronic Deficiency and other anemia (2 sources) Anemia co-occurrent and due to chronic kidney disease stage 3; Translations: [Anemia due to stage 3a chronic kidney disease (HCC) ([facility])] 06-22-2024 Chronic Deficiency and other anemia (10 sources) [...] Onset: 9 08-02-2019 Chronic Diverticulosis and diverticulitis (20 sources) Diverticular disease; Translations: [Diverticulosis of intestine, [...] 3 Episodic Genitourinary symptoms and ill-defined conditions (19 sources) Incontinence; Translations: [Unspecified urinary incontinence] Onset: [...] unspecified] 08-31-2020 Episodic Other connective tissue disease (18 sources) History of total hip arthroplasty; Translations: [Presence of left artificial hip joint] Onset: 3 06-14-2023 Chronic Other connective tissue disease (3 sources) Right achilles tendonitis; Translations: [Achilles tendinitis, right leg] 07-02-2024 Episodic Other connective tissue disease (1 source) Disorder of musculoskeletal system; Translations: [Other specified disorders of synovium, left ankle and foot] 07-20-2024 Episodic Other diseases of veins and lymphatics (3 sources) Vascular insufficiency; Translations: [Venous insufficiency (chronic) (peripheral)] 07-02-2024 Episodic Other fractures (6 sources) Fracture of sixth thoracic vertebra; Translations: [Unspecified fracture of T5-T6 vertebra, subsequent encounter for fracture with routine healing] Onset: 4 10-16-2024 Episodic Other gastrointestinal disorders (2 sources) H/O: colostomy; [...] Episodic Other lower respiratory disease (2 sources) Interstitial lung disease; Translations: [Interstitial pulmonary disease, unspecified] 06-16-2024 Chronic Other lower respiratory disease (2 sources) Wheezing; Translations: [Wheezing] 12-09-2023 Episodic Other nervous system disorders (10 sources) Chronic pain; Translations: [Other chronic pain] Chronic Other nervous system disorders (20 sources) Disorder of brain; Translations: [Encephalopathy, unspecified] Onset: 3 Resolved: 4 10-07-2023 Chronic Other nervous system disorders (10 [...] Chronic Other nutritional; endocrine; and metabolic disorders (16 sources) Obesity caused by energy imbalance; Translations: [...] rhinitis, unspecified] Chronic Peripheral and visceral atherosclerosis (16 sources) Atherosclerosis of aorta; Translations: [Atherosclerosis of aorta] Onset: 4 01-23-2024 Chronic Pneumonia (except that caused by tuberculosis or sexually transmitted disease) (20 sources) Pneumonia; Translations: [Pneumonia, unspecified organism] Onset: 4 Resolved: 4 02-14-2024 Episodic Prolapse of female genital organs (2 sources) Cystocele; Translations: [Cystocele, unspecified] 12-09-2023 Chronic Pulmonary heart disease (20 sources) Pulmonary hypertension; Translations: [Pulmonary hypertension, unspecified] Onset: 3 Resolved: 4 10-07-2023 Chronic Residual codes; unclassified (20 sources) Sleep apnea; Translations: [Sleep apnea, unspecified] [...] of foot; Translations: [Localized edema] 06-25-2023 Episodic Residual codes; unclassified (17 sources) Insomnia; Translations: [Insomnia, unspecified] Onset: 3 06-14-2023 Episodic Respiratory failure; insufficiency; arrest (adult) (20 [...] side] Onset: 3 06-14-2023 Episodic Substance-related disorders (20 sources) Nicotine dependence; Translations: [Nicotine dependence, unspecified, uncomplicated] Onset: 3 Resolved: 4 10-07-2023 Chronic Transient cerebral ischemia (20 sources) Transient [...] 3 Resolved: 4 04-28-2020 Episodic Allergic reactions (14 sources) Atopic dermatitis; Translations: [Intrinsic (allergic) eczema] Onset: 3 Resolved: 4 03-25-2024 Chronic Allergic reactions (18 sources) Inflammatory dermatosis; Translations: [Dermatitis, unspecified] Onset: 3 06-14-2023 Episodic Coronary atherosclerosis and other heart disease (16 sources) Coronary angioplasty status; Translations: [Stented coronary artery] Onset: 4 Resolved: 4 Episodic Deficiency and other anemia (19 sources) Microcytic anemia; Translations: [Iron deficiency anemia, unspecified] Onset: 4 Resolved: 4 01-06-2024 Episodic Diabetes mellitus with complications (14 sources) Neuropathy due to diabetes mellitus; Translations: [Type 2 diabetes mellitus with diabetic neuropathy, unspecified] Onset: 4 Resolved: 4 03-25-2024 Chronic Diabetes mellitus without complication (16 sources) Impaired fasting glycemia; Translations: [Impaired fasting glucose] Onset: 4 01-23-2024 Episodic Diseases of white blood cells (20 sources) Leukocytosis; Translations: [Elevated white blood cell count, unspecified] Onset: 4 Resolved: 4 09-06-2020 Chronic E Codes: Fall (20 sources) Fall; Translations: [Unspecified fall, initial encounter] Onset: 3 Resolved: 4 08-31-2020 Episodic Fracture of lower limb (14 sources) Fracture of femur; Translations: [Unspecified fracture of left femur, sequela] Onset: 3 Resolved: 4 03-25-2024 Episodic Fracture of neck of femur (hip) (20 sources) Intertrochanteric fracture; Translations: [Displaced intertrochanteric fracture of unspecified femur, initial encounter for closed fracture] Onset: 4 Resolved: 4 08-31-2020 Episodic Intestinal obstruction without hernia (16 sources) Small bowel obstruction; Translations: [Unspecified intestinal obstruction, unspecified as to partial versus complete obstruction] Onset: 9 Resolved: 4 08-01-2019 Episodic Malaise and fatigue (20 sources) Physical deconditioning; Translations: [Other malaise] Onset: 4 Resolved: 4 12-27-2022 Episodic Mood disorders (20 sources) Mood disorders Onset: 3 Resolved: 4 10-06-2023 Mycoses (20 sources) Onychomycosis; Translations: [Tinea unguium] Onset: 3 06-14-2023 Episodic Nausea and vomiting (18 sources) Nausea and vomiting; Translations: [Nausea with vomiting, unspecified] Onset: 4 Resolved: 4 02-14-2024 Episodic Nutritional deficiencies (20 sources) Vitamin D deficiency; Translations: [Vitamin D deficiency, unspecified] Onset: 3 Resolved: 4 04-28-2020 Chronic Nutritional deficiencies (14 sources) Nutritional deficiency state; Translations: [Nutritional deficiency, unspecified] Onset: 3 Resolved: 4 03-25-2024 Episodic Other aftercare (18 sources) Post-discharge follow-up; Translations: [Encounter for follow-up examination after completed treatment for conditions other than malignant neoplasm] Onset: 3 Resolved: 4 12-09-2023 Episodic Other aftercare (14 sources) 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; 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] Onset: 9 Resolved: 4 03-25-2024 Episodic Other and ill-defined heart disease (16 sources) Heart disease; Translations: [Heart disease, unspecified] Onset: 3 Resolved: 4 06-14-2023 Chronic Other and unspecified benign neoplasm (18 sources) Polyp of colon; Translations: [Polyp of colon] Onset: 3 06-14-2023 Episodic Other bone disease and musculoskeletal deformities (14 sources) Osteopenia; Translations: [Other specified disorders of bone density and structure, right thigh] Onset: 4 Resolved: 4 05-06-2024 Episodic Other circulatory disease (14 sources) History of cerebrovascular disease; Translations: [Personal history of transient ischemic attack (TIA), and cerebral infarction without residual deficits] Onset: 3 Resolved: 4 03-25-2024 Episodic Other connective tissue disease (14 sources) Recurrent falls ; Translations: [Repeated falls] Onset: 3 Resolved: 4 03-25-2024 Episodic Other connective tissue disease (14 sources) Muscle weakness; Translations: [Muscle weakness (generalized)] Onset: 3 Resolved: 4 03-25-2024 Episodic Other connective tissue disease (2 sources) Pain of toe of left foot; Translations: [Pain in left toe(s)] 07-02-2024 Episodic Other connective tissue disease (2 sources) Pain of toe of right foot; Translations: [Pain in right toe(s)] 07-02-2024 Episodic Other connective tissue disease (2 sources) Calcaneal spur of right foot; Translations: [Calcaneal spur, right foot] 07-02-2024 Episodic Other ear and sense organ disorders (14 sources) Hearing loss of right ear; Translations: [Impacted cerumen, right ear] Onset: 4 12-30-2023 Episodic Other gastrointestinal disorders (14 sources) Colostomy present; Translations: [Encounter for attention to colostomy] Onset: 4 Resolved: 4 03-25-2024 Chronic Other gastrointestinal disorders (16 sources) Constipation; Translations: [Constipation, unspecified] Onset: 3 Resolved: 4 06-14-2023 Episodic Other gastrointestinal disorders (14 sources) History of diverticulitis; Translations: [Personal history of other diseases of the digestive system] Onset: 5 Resolved: 4 03-25-2024 Episodic Other hereditary and degenerative nervous system conditions (14 sources) Essential tremor; Translations: [Essential tremor] Onset: 4 Resolved: 4 03-25-2024 Chronic Other inflammatory condition of skin (20 sources) Intertrigo; Translations: [Erythema intertrigo] Onset: 3 Resolved: 4 04-28-2020 Episodic Other injuries and conditions due to external causes (19 sources) Closed injury of head; Translations: [Unspecified injury of head, initial encounter] Onset: 4 Resolved: 4 07-10-2023 Episodic Other injuries and conditions due to external causes (16 sources) At risk for falls ; Translations: [History of falling] Onset: 3 06-14-2023 Episodic Other lower respiratory disease (20 sources) Dyspnea; Translations: [Shortness of breath] Onset: 3 Resolved: 4 12-09-2023 Episodic Other lower respiratory disease (19 sources) Productive cough ; Translations: [Cough with expectoration] Onset: 4 Resolved: 4 01-06-2024 Episodic Other lower respiratory disease (16 sources) Hypoxia; Translations: [Hypoxemia] Onset: 4 01-23-2024 Episodic Other lower respiratory disease (6 sources) Shortness of breath; Translations: [Shortness of breath] Onset: 4 Episodic Other lower respiratory disease (2 sources) Shortness of breath; Translations: [Shortness of breath] Onset: 4 Episodic Other lower respiratory disease (1 source) Acute respiratory distress; Translations: [Acute respiratory distress] Onset: 3 Episodic Other nervous system disorders (14 sources) Cognitive deficit in communication skills; Translations: [Cognitive communication deficit] Onset: 3 Resolved: 4 03-25-2024 Chronic Other nervous system disorders (14 sources) Difficulty walking; Translations: [Difficulty in walking, not elsewhere classified] Onset: 3 Resolved: 4 03-25-2024 Chronic Other nervous system disorders (14 sources) Polyneuropathy; Translations: [Polyneuropathy, unspecified] Onset: 3 Resolved: 4 03-25-2024 Chronic Other nervous system disorders (20 sources) Disturbance in speech; Translations: [Unspecified speech disturbances] Onset: 4 Resolved: 4 04-26-2020 Episodic Other nervous system disorders (14 sources) Tremor; Translations: [Tremor, unspecified] Onset: 3 Resolved: 4 03-25-2024 Episodic Other nervous system disorders (14 sources) Incoordination; Translations: [Unspecified lack of coordination] Onset: 3 Resolved: 4 03-25-2024 Episodic Other non-traumatic joint disorders (20 sources) Hip pain; Translations: [Pain in unspecified hip] Onset: 4 Resolved: 4 05-31-2022 Episodic Other non-traumatic joint disorders (14 sources) Sinus tarsi syndrome of left ankle; Translations: [Pain in left ankle and joints of left foot] Onset: 3 06-14-2023 Episodic Other nutritional; endocrine; and metabolic disorders (20 sources) Body mass index 30+ - obesity; Translations: [Body mass index (BMI) 37.0-37.9, adult] Onset: 4 Resolved: 4 01-06-2024 Chronic Other nutritional; endocrine; and metabolic disorders (20 sources) Obesity; Translations: [Obesity, unspecified] Onset: 3 Resolved: 4 09-06-2020 Chronic Residual codes; unclassified (20 sources) Activity of daily living (ADL) alteration; Translations: [Other specified health status] Onset: 4 Resolved: 4 12-26-2022 Episodic Residual codes; unclassified (16 sources) Edema of lower extremity; Translations: [Localized edema] Onset: 3 06-14-2023 Episodic Residual codes; unclassified (16 sources) Tobacco user; Translations: [Tobacco use] Onset: 3 Resolved: 4 06-14-2023 Episodic Residual codes; unclassified (16 sources) Localized edema; Translations: [Localized edema] Onset: 3 Resolved: 4 06-19-2023 Episodic Septicemia (except in labor) (11 sources) Sepsis; Translations: [Sepsis, unspecified organism] Onset: 3 Resolved: 4 10-07-2023 Episodic Superficial injury; contusion (20 sources) Contusion of hip; Translations: [Contusion of unspecified hip, initial encounter] Onset: 4 Resolved: 4 07-10-2023 Episodic Unclassified (15 sources) Onset: 4 Resolved: 4 02-10-2024 Unclassified (1 source) Other specified cough; Translations: [Other specified cough] Onset: 4 Urinary tract infections (20 sources) Urinary tract infectious disease; Translations: [Urinary tract infection, site not specified] Onset: 4 Resolved: 4 04-28-2020 Episodic Viral infection (18 sources) Verruca plantaris; Translations: [Plantar wart] Onset: 3 06-14-2023 Episodic Results Test Name Value Interpretation Reference Range Facility URINE CULTURE, ROUTINEon Bacteria identified Cx Nom (U) Urine Culture, Routine [facility] Bacteria identified Cx Nom (U) [facility]imberly [facility] identified Cx Nom (U) 10,000-25,000 colony forming units per mL [facility] Bacteria identified Cx Nom (U) Performed at: [facility] Bacteria identified Cx Nom (U) [address], [place] [id number] [facility] Bacteria identified Cx Nom (U) Gear Machinist: Jamil Giraldo PhD, Phone: [phone] [facility] XR CHEST 2 VIEWSon 4 XR CHEST [...] detection for pulmonary nodules was performed utilizing [email or web address] software. FINDINGS: No pleural or pericardial effusion. [...] Blake MD on 05/01/2024 9:36 AM Normal [facility] BLOOD UREA NITROGENon 2023 Urea nitrogen [Mass/Vol] 20 mg/dL Normal 5-27 [facility] Comment on above: Performed By: #### C SOWMYA, BMP #### [facility] ([id number]) [address] [place] [address] CBC AND AUTO DIFFon 04-13-20 ABSOLUTE BASOPHIL 0.0 X10E9/L Normal 0.0-0.2 [facility] Comment on above: Performed By: #### C SOWMYA, BMP #### [facility] ([id number]) [address] [place] [address] ABSOLUTE NEUTROPHIL 7.1 X10E9/L High 1.5-6.6 [facility] Comment on above: Performed By: #### C SOWMYA, BMP #### [facility] ([id number]) [address] [place] [address] 95510 Basophils/100 WBC (Bld) 0.4 % Normal [facility] Comment on above: Performed By: #### C SOWMYA, BMP #### [facility] ([id number]) [address] [place] [address] 02993 Eosinophils (Bld) [#/Vol] 0.3 10*3/uL Normal 0.0-0.4 [facility] Comment on above: Performed By: #### C SOWMYA, BMP #### [facility] ([id number]) [address] [place] [address] 29146 Eosinophils/100 WBC (Bld) 2.8 % Normal [facility] Comment on above: Performed By: #### C SOWMYA, BMP #### [facility] ([id number]) [address] [place] [address] 32487 Erythrocyte distribution width (RBC) [Ratio] 19.0 % High 11.5-15.0 [facility] Comment on above: Performed By: #### Timmy DENG, BMP #### [facility] ([id number]) [address] [place] [address] 30298 Hematocrit (Bld) [Volume fraction] 27.8 % Low 35-47 [facility] Comment on above: Performed By: #### C SOWMYA, BMP #### [facility] ([id number]) [address] [place] [address] 87386 Hemoglobin (Bld) [Mass/Vol] 9.0 g/dL Low 11.7-15.5 [facility] Comment on above: Performed By: #### C SOWMYA, BMP #### [facility] ([id number]) [address] [place] [address] 53605 Lymphocytes (Bld) [#/Vol] 3.2 10*3/uL Normal 1.0-3.5 [facility] Comment on above: Performed By: #### C SOWMYA, BMP #### [facility] ([id number]) [address] [place] [address] 49428 Lymphocytes/100 WBC (Bld) 27.2 % Normal [facility] Comment on above: Performed By: #### C SOWMYA, BMP #### [facility] ([id number]) [address] [place] [address] 17143 MCH (RBC) [Entitic mass] 24.5 pg Low 27-34 [facility] Comment on above: Performed By: #### C SOWMYA, BMP #### [facility] ([id number]) [address] [place] [address] [place] [address] MCHC (RBC) [Mass/Vol] 32.3 g/dL Normal 32-36 [facility] Comment on above: Performed By: #### C SOWMYA, BMP #### [facility] ([id number]) [address] [place] [address] 10606 MCV (RBC) [Entitic vol] 76 fL Low 80-100 [facility] Comment on above: Performed By: #### C SOWMYA, BMP #### [facility] ([id number]) [address] [place] [address] 18464 Monocytes (Bld) [#/Vol] 1.0 10*3/uL High 0-0.9 [facility] Comment on above: Performed By: #### C SOWMYA, BMP #### [facility] ([id number]) [address] [place] [address] 19584 Monocytes/100 WBC (Bld) 8.4 % Normal [facility] Comment on above: Performed By: #### C OSWMYA, BMP #### [facility] ([id number]) [address] [place] [address] 59087 Neutrophils/100 WBC (Bld) 61.2 % Normal [facility] Comment on above: Performed By: #### C SOWMYA, BMP #### [facility] ([id number]) [address] [place] [address] [place] [address] Platelet mean volume (Bld) [Entitic vol] 6.8 fL Low 7-12 [facility] Comment on above: Performed By: #### C SOWMYA, BMP #### [facility] ([id number]) [address] [place] [address] 25755 Platelets (Bld) [#/Vol] 353 10*3/uL Normal 150-450 [facility] Comment on above: Performed By: #### C SOWMYA, BMP #### [facility] ([id number]) [address] [place] [address] 92410 RBC COUNT 3.67 X10E12/L Low 3.80-5.20 [facility] Comment on above: Performed By: #### C SOWMYA, BMP #### [facility] ([id number]) [address] [place] [address] 71198 WBC (Bld) [#/Vol] 11.7 10*3/uL High 4.0-11.0 [facility] Comment on above: Performed By: #### C SOWMYA, BMP #### [facility] ([id number]) [address] [place] [address] 49180 CREATININEon 04-13-2024 Creatinine [Mass/Vol] 1.16 mg/dL High 0.40-1.00 [facility] Comment on above: Result Comment: METH OD TRACEABLE TO IDMS STANDARD Performed By: #### C SOWMYA, BMP #### [facility] ([id number]) [address] [place] [address] 29890 GFR/1.73 sq M.predicted among non-blacks MDRD (S/P/Bld) [Vol rate/Area] 48 mL/min/{1.73_m2} Low >59 [facility] Comment on above: Result Comment: Reported eGFR is based on the CKD-EPI 2020 equation that does not use a race coefficient. Performed By: #### C SOWMYA, BMP #### [facility] ([id number]) [address] [place] [address] 11614 ELECTROLYTESon 04-13-2024 Anion gap [Moles/Vol] 4 mmol/L Low 5-15 [facility] Comment on above: Performed By: #### C SOWMYA, BMP #### [facility] ([id number]) [address] [place] [address] 64924 Chloride [Moles/Vol] 106 mmol/L Normal 98-109 [facility] Comment on above: Performed By: #### C BCA, BMP #### [facility] ([id number]) [address] [place] [address] 55256 CO2 [Moles/Vol] 25 mmol/L Normal 22-32 [facility] Comment on above: Performed By: #### C SOWMYA, BMP #### [facility] ([id number]) [address] [place] [address] 04547 Potassium [Moles/Vol] 4.0 mmol/L Normal 3.5-5.0 [facility] Comment on above: Performed By: #### Timmy DENG, BMP #### [facility] ([id number]) [address] [place] [address] 93557 Sodium [Moles/Vol] 135 mmol/L Normal 134-146 [facility] Comment on above: Performed By: #### Timmy DENG, BMP #### [facility] ([id number]) [address] [place] [address] 30093 BLOOD UREA NITROGENon 2023 Urea nitrogen [Mass/Vol] 19 mg/dL Normal 5-27 [facility] Comment on above: Performed By: #### Timmy DENG, BMP #### [facility] ([id number]) [address] [place] [address] 27605 CBC AND AUTO DIFFon 04-08-20 24 ABSOLUTE BASOPHIL 0.1 X10E9/L Normal 0.0-0.2 [facility] Comment on above: Performed By: #### Timmy DENG, BMP #### [facility] ([id number]) [address] [place] [address] 52079 ABSOLUTE NEUTROPHIL 4.2 X10E9/L Normal 1.5-6.6 [facility] Comment on above: Performed By: #### Timmy DENG, BMP #### [facility] ([id number]) [address] [place] [address] 50258 Basophils/100 WBC (Bld) 1.1 % Normal [facility] Comment on above: Performed By: #### Timmy DENG, BMP #### [facility] ([id number]) [address] [place] [address] 93780 Eosinophils (Bld) [#/Vol] 0.4 10*3/uL Normal 0.0-0.4 [facility] Comment on above: Performed By: #### Timmy DENG, BMP #### [facility] ([id number]) [address] [place] [address] 45623 Eosinophils/100 WBC (Bld) 4.0 % Normal [facility] Comment on above: Performed By: #### C SOWMYA, BMP #### [facility] ([id number]) [address] [place] [address] 65190 Erythrocyte distribution width (RBC) [Ratio] 18.5 % High 11.5-15.0 [facility] Comment on above: Performed By: #### C SOWMYA, BMP #### [facility] ([id number]) [address] [place] [address] 51742 Hematocrit (Bld) [Volume fraction] 28.4 % Low 35-47 [facility] Comment on above: Performed By: #### C SOWMYA, BMP #### [facility] ([id number]) [address] [place] [address] 13488 Hemoglobin (Bld) [Mass/Vol] 9.4 g/dL Low 11.7-15.5 [facility] Comment on above: Performed By: #### C SOWMYA, BMP #### [facility] ([id number]) [address] [place] [address] 29037 Lymphocytes (Bld) [#/Vol] 3.3 10*3/uL Normal 1.0-3.5 [facility] Comment on above: Performed By: #### C SOWMYA, BMP #### [facility] ([id number]) [address] [place] [address] 45718 Lymphocytes/100 WBC (Bld) 37.1 % Normal [facility] Comment on above: Performed By: #### C SOWMYA, BMP #### [facility] ([id number]) [address] [place] [address] 51249 MCH (RBC) [Entitic mass] 24.9 pg Low 27-34 [facility] Comment on above: Performed By: #### C SOWMYA, BMP #### [facility] ([id number]) [address] [place] [address] 46425 MCHC (RBC) [Mass/Vol] 33.0 g/dL Normal 32-36 [facility] Comment on above: Performed By: #### C SOWMYA, BMP #### [facility] ([id number]) [address] [place] [address] 85350 MCV (RBC) [Entitic vol] 76 fL Low 80-100 [facility] Comment on above: Performed By: #### C SOWMYA, BMP #### [facility] ([id number]) [address] [place] [address] 44168 Monocytes (Bld) [#/Vol] 1.0 10*3/uL High 0-0.9 [facility] Comment on above: Performed By: #### C SOWMYA, BMP #### [facility] ([id number]) [address] [place] [address] 35232 Monocytes/100 WBC (Bld) 10.9 % Normal [facility] Comment on above: Performed By: #### C SOWMYA, BMP #### [facility] ([id number]) [address] [place] [address] 20879 Neutrophils/100 WBC (Bld) 46.9 % Normal [facility] Comment on above: Performed By: #### C SOWMYA, BMP #### [facility] ([id number]) [address] [place] [address] 73483 Platelet mean volume (Bld) [Entitic vol] 6.7 fL Low 7-12 [facility] Comment on above: Performed By: #### C SOWMYA, BMP #### [facility] ([id number]) [address] [place] [address] 34661 Platelets (Bld) [#/Vol] 367 10*3/uL Normal 150-450 [facility] Comment on above: Performed By: #### C BCA, BMP #### [facility] ([id number]) [address] [place] [address] 74457 RBC COUNT 3.76 X10E12/L Low 3.80-5.20 [facility] Comment on above: Performed By: #### C SOWMYA, BMP #### [facility] ([id number]) [address] [place] [address] 40473 WBC (Bld) [#/Vol] 9.0 10*3/uL Normal 4.0-11.0 [facility] Comment on above: Performed By: #### C SOWMYA, BMP #### [facility] ([id number]) [address] [place] [address] 46880 CREATININEon 04-08-2024 Creatinine [Mass/Vol] 1.09 mg/dL High 0.40-1.00 [facility] Comment on above: Result Comment: METH OD TRACEABLE TO IDMS STANDARD Performed By: #### C SOWMYA, BMP #### [facility] ([id number]) [address] [place] [address] 47851 GFR/1.73 sq M.predicted among non-blacks MDRD (S/P/Bld) [Vol rate/Area] 52 mL/min/{1.73_m2} Low >59 [facility] Comment on above: Result Comment: Reported eGFR is based on the CKD-EPI 2020 equation that does not use a race coefficient. Performed By: #### C BCA, BMP #### [facility] ([id number]) [address] [place] [address] 91166 ELECTROLYTESon 04-08-2024 Anion gap [Moles/Vol] 8 mmol/L Normal 5-15 [facility] Comment on above: Performed By: #### C BCA, BMP #### [facility] ([id number]) [address] [place] [address] 71460 Chloride [Moles/Vol] 107 mmol/L Normal 98-109 [facility] Comment on above: Performed By: #### C BCA, BMP #### [facility] ([id number]) [address] [place] [address] 31475 CO2 [Moles/Vol] 24 mmol/L Normal 22-32 [facility] Comment on above: Performed By: #### C BCA, BMP #### [facility] ([id number]) [address] [place] [address] 86257 Potassium [Moles/Vol] 3.8 mmol/L Normal 3.5-5.0 [facility] Comment on above: Performed By: #### C SOWMYA, BMP #### [facility] ([id number]) [address] [place] [address] 77630 Sodium [Moles/Vol] 139 mmol/L Normal 134-146 [facility] Comment on above: Performed By: #### C SOWMYA, BMP #### [facility] ([id number]) [address] [place] [address] 66742 BLOOD UREA NITROGENon 2023 Urea nitrogen [Mass/Vol] 20 mg/dL Normal 5-27 [facility] Comment on above: Performed By: #### C SOWMYA, BMP #### [facility] ([id number]) [address] [place] [address] 81084 CBC AND AUTO DIFFon 04-02-20 24 ABSOLUTE BASOPHIL 0.1 X10E9/L Normal 0.0-0.2 [facility] Comment on above: Performed By: #### C BCA, BMP #### [facility] ([id number]) [address] [place] [address] 03081 ABSOLUTE NEUTROPHIL 4.8 X10E9/L Normal 1.5-6.6 [facility] Comment on above: Performed By: #### C BCA, BMP #### [facility] ([id number]) [address] [place] [address] 91851 Basophils/100 WBC (Bld) 0.7 % Normal [facility] Comment on above: Performed By: #### C SOWMYA, BMP #### [facility] ([id number]) [address] [place] [address] 00096 Eosinophils (Bld) [#/Vol] 0.2 10*3/uL Normal 0.0-0.4 [facility] Comment on above: Performed By: #### C SOWMYA, BMP #### [facility] ([id number]) [address] [place] [address] 70704 Eosinophils/100 WBC (Bld) 2.5 % Normal [facility] Comment on above: Performed By: #### C SOWMYA, BMP #### [facility] ([id number]) [address] [place] [address] 88354 Erythrocyte distribution width (RBC) [Ratio] 18.6 % High 11.5-15.0 [facility] Comment on above: Performed By: #### C SOWMYA, BMP #### [facility] ([id number]) [address] [place] [address] 27287 Hematocrit (Bld) [Volume fraction] 28.2 % Low 35-47 [facility] Comment on above: Performed By: #### C SOWMYA, BMP #### [facility] ([id number]) [address] [place] [address] 34425 Hemoglobin (Bld) [Mass/Vol] 9.1 g/dL Low 11.7-15.5 [facility] Comment on above: Performed By: #### C SOWMYA, BMP #### [facility] ([id number]) [address] [place] [address] 21718 Lymphocytes (Bld) [#/Vol] 3.2 10*3/uL Normal 1.0-3.5 [facility] Comment on above: Performed By: #### C SOWMYA, BMP #### [facility] ([id number]) [address] [place] [address] 26892 Lymphocytes/100 WBC (Bld) 34.4 % Normal [facility] Comment on above: Performed By: #### C SOWMYA, BMP #### [facility] ([id number]) [address] [place] [address] 88690 MCH (RBC) [Entitic mass] 24.5 pg Low 27-34 [facility] Comment on above: Performed By: #### C SOWMYA, BMP #### [facility] ([id number]) [address] [place] [address] 68136 MCHC (RBC) [Mass/Vol] 32.4 g/dL Normal 32-36 [facility] Comment on above: Performed By: #### C SOWMYA, BMP #### [facility] ([id number]) [address] [place] [address] 76579 MCV (RBC) [Entitic vol] 76 fL Low 80-100 [facility] Comment on above: Performed By: #### C SOWMYA, BMP #### [facility] ([id number]) [address] [place] [address] 16661 Monocytes (Bld) [#/Vol] 1.0 10*3/uL High 0-0.9 [facility] Comment on above: Performed By: #### C SOWMYA, BMP #### [facility] ([id number]) [address] [place] [address] 97625 Monocytes/100 WBC (Bld) 11.1 % Normal [facility] Comment on above: Performed By: #### C SOWMYA, BMP #### [facility] ([id number]) [address] [place] [address] 13064 Neutrophils/100 WBC (Bld) 51.3 % Normal [facility] Comment on above: Performed By: #### C SOWMYA, BMP #### [facility] ([id number]) [address] [place] [address] 84729 Platelet mean volume (Bld) [Entitic vol] 6.9 fL Low 7-12 [facility] Comment on above: Performed By: #### C SOWMYA, BMP #### [facility] ([id number]) [address] [place] [address] 16123 Platelets (Bld) [#/Vol] 319 10*3/uL Normal 150-450 [facility] Comment on above: Performed By: #### C SOWMYA, BMP #### [facility] ([id number]) [address] [place] [address] 86959 RBC COUNT 3.72 X10E12/L Low 3.80-5.20 [facility] Comment on above: Performed By: #### C SOWMYA, BMP #### [facility] ([id number]) [address] [place] [address] 28252 WBC (Bld) [#/Vol] 9.4 10*3/uL Normal 4.0-11.0 [facility] Comment on above: Performed By: #### Timmy DENG, BMP #### [facility] ([id number]) [address] [place] [address] 10403 CREATININEon 04-02-2024 Creatinine [Mass/Vol] 1.13 mg/dL High 0.40-1.00 [facility] Comment on above: Result Comment: METH OD TRACEABLE TO IDMS STANDARD Performed By: #### C SOWMYA, BMP #### [facility] ([id number]) [address] [place] [address] 13394 GFR/1.73 sq M.predicted among non-blacks MDRD (S/P/Bld) [Vol rate/Area] 50 mL/min/{1.73_m2} Low >59 [facility] Comment on above: Result Comment: Reported eGFR is based on the CKD-EPI 2020 equation that does not use a race coefficient. Performed By: #### C BCA, BMP #### [facility] ([id number]) [address] [place] [address] 40236 ELECTROLYTESon 04-02-2024 Anion gap [Moles/Vol] 7 mmol/L Normal 5-15 [facility] Comment on above: Performed By: #### C BCA, BMP #### [facility] ([id number]) [address] [place] [address] 34211 Chloride [Moles/Vol] 107 mmol/L Normal 98-109 [facility] Comment on above: Performed By: #### C BCA, BMP #### [facility] ([id number]) [address] [place] [address] 34342 CO2 [Moles/Vol] 25 mmol/L Normal 22-32 [facility] Comment on above: Performed By: #### C BCA, BMP #### [facility] ([id number]) [address] [place] [address] 53941 Potassium [Moles/Vol] 4.1 mmol/L Normal 3.5-5.0 [facility] Comment on above: Performed By: #### C BCA, BMP #### [facility] ([id number]) [address] [place] [address] 41255 Sodium [Moles/Vol] 139 mmol/L Normal 134-146 [facility] Comment on above: Performed By: #### C BCA, BMP #### [facility] ([id number]) [address] [place] [address] 87664 BASIC METABOLIC PANLon 03-30 Anion gap [Moles/Vol] 8 mmol/L Normal 5-15 [facility] Comment on above: Performed By: #### C BCA, BMP #### [facility] ([id number]) [address] [place] [address] 41099 Calcium [Mass/Vol] 9.1 mg/dL Normal 8.5-10.5 [facility] Comment on above: Performed By: #### C BCA, BMP #### [facility] ([id number]) [address] [place] [address] 07453 Chloride [Moles/Vol] 104 mmol/L Normal 98-109 [facility] Comment on above: Performed By: #### C BCA, BMP #### [facility] ([id number]) [address] [place] [address] 99733 CO2 [Moles/Vol] 26 mmol/L Normal 22-32 [facility] Comment on above: Performed By: #### C BCA, BMP #### [facility] ([id number]) [address] [place] [address] 00751 Creatinine [Mass/Vol] 1.14 mg/dL High 0.40-1.00 [facility] Comment on above: Result Comment: METH OD TRACEABLE TO IDMS STANDARD Performed By: #### C SOWMYA, BMP #### [facility] ([id number]) [address] [place] [address] 55867 GFR/1.73 sq M.predicted among non-blacks MDRD (S/P/Bld) [Vol rate/Area] 49 mL/min/{1.73_m2} Low >59 [facility] Comment on above: Result Comment: Reported eGFR is based on the CKD-EPI 2020 equation that does not use a race coefficient. Performed By: #### C BCA, BMP #### [facility] ([id number]) [address] [place] [address] 16356 Glucose [Mass/Vol] 101 mg/dL High 65-99 [facility] Comment on above: Performed By: #### C BCA, BMP #### [facility] ([id number]) [address] [place] [address] 49604 Potassium [Moles/Vol] 4.2 mmol/L Normal 3.5-5.0 [facility] Comment on above: Performed By: #### C SOWMYA, BMP #### [facility] ([id number]) [address] [place] [address] 08319 Sodium [Moles/Vol] 138 mmol/L Normal 134-146 [facility] Comment on above: Performed By: #### C SOWMYA, BMP #### [facility] ([id number]) [address] [place] [address] 60581 Urea nitrogen [Mass/Vol] 21 mg/dL Normal 5-27 [facility] Comment on above: Performed By: #### C SOWMYA, BMP #### [facility] ([id number]) [address] [place] [address] 68002 CBC AND AUTO DIFFon 03-18-20 24 ABSOLUTE BASOPHIL 0.1 X10E9/L Normal 0.0-0.2 [facility] Comment on above: Performed By: #### C SOWMYA, BMP #### [facility] ([id number]) [address] [place] [address] 73080 ABSOLUTE NEUTROPHIL 4.5 X10E9/L Normal 1.5-6.6 [facility] Comment on above: Performed By: #### C SOWMYA, BMP #### [facility] ([id number]) [address] [place] [address] 15318 Basophils/100 WBC (Bld) 0.7 % Normal [facility] Comment on above: Performed By: #### C SOWMYA, BMP #### [facility] ([id number]) [address] [place] [address] 79439 Eosinophils (Bld) [#/Vol] 0.4 10*3/uL Normal 0.0-0.4 [facility] Comment on above: Performed By: #### C SOWMYA, BMP #### [facility] ([id number]) [address] [place] [address] 54197 Eosinophils/100 WBC (Bld) 4.1 % Normal [facility] Comment on above: Performed By: #### C SOWMYA, BMP #### [facility] ([id number]) [address] [place] [address] 61545 Erythrocyte distribution width (RBC) [Ratio] 18.8 % High 11.5-15.0 [facility] Comment on above: Performed By: #### C SOWMYA, BMP #### [facility] ([id number]) [address] [place] [address] 81757 Hematocrit (Bld) [Volume fraction] 28.0 % Low 35-47 [facility] Comment on above: Performed By: #### C SOWMYA, BMP #### [facility] ([id number]) [address] [place] [address] 79631 Hemoglobin (Bld) [Mass/Vol] 9.1 g/dL Low 11.7-15.5 [facility] Comment on above: Performed By: #### C SOWMYA, BMP #### [facility] ([id number]) [address] [place] [address] 80424 Lymphocytes (Bld) [#/Vol] 2.9 10*3/uL Normal 1.0-3.5 [facility] Comment on above: Performed By: #### C SOWMYA, BMP #### [facility] ([id number]) [address] [place] [address] 97386 Lymphocytes/100 WBC (Bld) 33.2 % Normal [facility] Comment on above: Performed By: #### C SOWMYA, BMP #### [facility] ([id number]) [address] [place] [address] 24208 MCH (RBC) [Entitic mass] 24.4 pg Low 27-34 [facility] Comment on above: Performed By: #### C SOWMYA, BMP #### [facility] ([id number]) [address] [place] [address] 35515 MCHC (RBC) [Mass/Vol] 32.3 g/dL Normal 32-36 [facility] Comment on above: Performed By: #### C SOWMYA, BMP #### [facility] ([id number]) [address] [place] [address] 13185 MCV (RBC) [Entitic vol] 76 fL Low 80-100 [facility] Comment on above: Performed By: #### C SOWMYA, BMP #### [facility] ([id number]) [address] [place] [address] 64220 Monocytes (Bld) [#/Vol] 0.8 10*3/uL Normal 0-0.9 [facility] Comment on above: Performed By: #### C SOWMYA, BMP #### [facility] ([id number]) [address] [place] [address] 87559 Monocytes/100 WBC (Bld) 9.4 % Normal [facility] Comment on above: Performed By: #### C SOWMYA, BMP #### [facility] ([id number]) [address] [place] [address] 63077 Neutrophils/100 WBC (Bld) 52.6 % Normal [facility] Comment on above: Performed By: #### C SOWMYA, BMP #### [facility] ([id number]) [address] [place] [address] 76495 Platelet mean volume (Bld) [Entitic vol] 6.8 fL Low 7-12 [facility] Comment on above: Performed By: #### C BCA, BMP #### [facility] ([id number]) [address] [place] [address] 37941 Platelets (Bld) [#/Vol] 405 10*3/uL Normal 150-450 [facility] Comment on above: Performed By: #### C SOWMYA, BMP #### [facility] ([id number]) [address] [place] [address] 01634 RBC COUNT 3.71 X10E12/L Low 3.80-5.20 [facility] Comment on above: Performed By: #### C SOWMYA, BMP #### [facility] ([id number]) [address] [place] [address] 74448 WBC (Bld) [#/Vol] 8.6 10*3/uL Normal 4.0-11.0 [facility] Comment on above: Performed By: #### C SOWMYA, BMP #### [facility] ([id number]) [address] [place] [address] 13438 BLOOD UREA NITROGENon 2023 Urea nitrogen [Mass/Vol] 14 mg/dL Normal 5-27 [facility] Comment on above: Performed By: #### C SOWMYA, BMP #### [facility] ([id number]) [address] [place] [address] 75955 CBC AND AUTO DIFFon 03-11-20 24 ABSOLUTE BASOPHIL 0.1 X10E9/L Normal 0.0-0.2 [facility] Comment on above: Performed By: #### C SOWMYA, BMP #### [facility] ([id number]) [address] [place] [address] 45648 ABSOLUTE NEUTROPHIL 6.8 X10E9/L High 1.5-6.6 [facility] Comment on above: Performed By: #### C SOWMYA, BMP #### [facility] ([id number]) [address] [place] [address] 69415 Basophils/100 WBC (Bld) 0.6 % Normal [facility] Comment on above: Performed By: #### C SOWMYA, BMP #### [facility] ([id number]) [address] [place] [address] 34045 Eosinophils (Bld) [#/Vol] 0.4 10*3/uL Normal 0.0-0.4 [facility] Comment on above: Performed By: #### C SOWMYA, BMP #### [facility] ([id number]) [address] [place] [address] 04298 Eosinophils/100 WBC (Bld) 3.7 % Normal [facility] Comment on above: Performed By: #### C SOWMYA, BMP #### [facility] ([id number]) [address] [place] [address] 40248 Erythrocyte distribution width (RBC) [Ratio] 18.8 % High 11.5-15.0 [facility] Comment on above: Performed By: #### C SOWMYA, BMP #### [facility] ([id number]) [address] [place] [address] 95568 Hematocrit (Bld) [Volume fraction] 27.4 % Low 35-47 [facility] Comment on above: Performed By: #### C SOWMYA, BMP #### [facility] ([id number]) [address] [place] [address] 83901 Hemoglobin (Bld) [Mass/Vol] 8.8 g/dL Low 11.7-15.5 [facility] Comment on above: Performed By: #### C SOWMYA, BMP #### [facility] ([id number]) [address] [place] [address] 69755 Lymphocytes (Bld) [#/Vol] 3.3 10*3/uL Normal 1.0-3.5 [facility] Comment on above: Performed By: #### C SOWMYA, BMP #### [facility] ([id number]) [address] [place] [address] 51221 Lymphocytes/100 WBC (Bld) 27.7 % Normal [facility] Comment on above: Performed By: #### C SOWMYA, BMP #### [facility] ([id number]) [address] [place] [address] 16492 MCH (RBC) [Entitic mass] 24.7 pg Low 27-34 [facility] Comment on above: Performed By: #### C SOWMYA, BMP #### [facility] ([id number]) [address] [place] [address] 99178 MCHC (RBC) [Mass/Vol] 32.3 g/dL Normal 32-36 [facility] Comment on above: Performed By: #### C SOWMYA, BMP #### [facility] ([id number]) [address] [place] [address] 16610 MCV (RBC) [Entitic vol] 77 fL Low 80-100 [facility] Comment on above: Performed By: #### C SOWMYA, BMP #### [facility] ([id number]) [address] [place] [address] 01856 Monocytes (Bld) [#/Vol] 1.2 10*3/uL High 0-0.9 [facility] Comment on above: Performed By: #### C SOWMYA, BMP #### [facility] ([id number]) [address] [place] [address] 32927 Monocytes/100 WBC (Bld) 10.4 % Normal [facility] Comment on above: Performed By: #### C SOWMYA, BMP #### [facility] ([id number]) [address] [place] [address] 59208 Neutrophils/100 WBC (Bld) 57.6 % Normal [facility] Comment on above: Performed By: #### C SOWMYA, BMP #### [facility] ([id number]) [address] [place] [address] 33112 Platelet mean volume (Bld) [Entitic vol] 7.3 fL Normal 7-12 [facility] Comment on above: Performed By: #### C SOWMYA, BMP #### [facility] ([id number]) [address] [place] [address] 41534 Platelets (Bld) [#/Vol] 255 10*3/uL Normal 150-450 [facility] Comment on above: Performed By: #### C SOWMYA, BMP #### [facility] ([id number]) [address] [place] [address] [id number] RBC COUNT 3.58 X10E12/L Low 3.80-5.20 [facility] Comment on above: Performed By: #### C SOWMYA, BMP #### [facility] ([id number]) [address] [place] [address] [phone] WBC (Bld) [#/Vol] 11.8 10*3/uL High 4.0-11.0 [facility] Comment on above: Performed By: #### C SOWMYA, BMP #### [facility] ([id number]) [address] [place] [phone] CREATININEon 03-11-2024 Creatinine [Mass/Vol] 1.09 mg/dL High 0.40-1.00 [facility] Comment on above: Result Comment: METH OD TRACEABLE TO IDMS STANDARD Performed By: #### C SOWMYA, BMP #### [facility] ([id number]) [address] [place] [address] 37038 GFR/1.73 sq M.predicted among non-blacks MDRD (S/P/Bld) [Vol rate/Area] 52 mL/min/{1.73_m2} Low >59 [facility] Comment on above: Result Comment: Reported eGFR is based on the CKD-EPI 2020 equation that does not use a race coefficient. Performed By: #### C SOWMYA, BMP #### [facility] ([id number]) [address] [place] [address] 04614 ELECTROLYTESon 03-11-2024 Anion gap [Moles/Vol] 7 mmol/L Normal 5-15 [facility] Comment on above: Performed By: #### E LEC, 3094-0, MARKETING SERVICES VICE PRESIDENT, CBCA #### [facility] ([id number]) [address] [place] [address] [phone] Chloride [Moles/Vol] 106 mmol/L Normal 98-109 [facility] Comment on above: Performed By: #### E LEC, 3094-0, MARKETING SERVICES VICE PRESIDENT, CBCA #### [facility] ([id number]) [address] [place] [address] 09566 CO2 [Moles/Vol] 27 mmol/L Normal 22-32 [facility] Comment on above: Performed By: #### E LEC, 3094-0, MARKETING SERVICES VICE PRESIDENT, CBCA #### [facility] ([id number]) [address] [place] [address] 14606 Potassium [Moles/Vol] 4.2 mmol/L Normal 3.5-5.0 [facility] Comment on above: Performed By: #### E LEC, 3094-0, MARKETING SERVICES VICE PRESIDENT, CBCA #### [facility] ([id number]) [address] [place] [address] 80180 Sodium [Moles/Vol] 140 mmol/L Normal 134-146 [facility] Comment on above: Performed By: #### E LEC, 3094-0, MARKETING SERVICES VICE PRESIDENT, CBCA #### [facility] ([id number]) [address] [place] [address] 22790 CBC AND AUTO DIFFon 03-05-20 24 ABSOLUTE BASOPHIL 0.1 X10E9/L Normal 0.0-0.2 [facility] Comment on above: Performed By: #### C BCA #### [facility] ([id number]) [address] [place] [address] 07649 #### 80757-1 #### [facility] ([id number]) [address], [address] [place] [address] ABSOLUTE NEUTROPHIL 6.2 X10E9/L Normal 1.5-6.6 [facility] Comment on above: Performed By: #### C BCA #### [facility] ([id number]) [address] [place] [address] 42575 #### 08459-6 #### [facility] ([id number]) [address], [address] [place] [address] Basophils/100 WBC (Bld) 0.6 % Normal [facility] Comment on above: Performed By: #### C BCA #### [facility] ([id number]) [address] [place] [address] 08334 #### 47515-6 #### [facility] ([id number]) [address], [address] [place] [address] Eosinophils (Bld) [#/Vol] 0.3 10*3/uL Normal 0.0-0.4 [facility] Comment on above: Performed By: #### C BCA #### [facility] ([id number]) [address] [place] [address] 95556 #### 93173-8 #### [facility] ([id number]) [address], [address] [place] [address] Eosinophils/100 WBC (Bld) 2.4 % Normal [facility] Comment on above: Performed By: #### C BCA #### [facility] ([id number]) [address] [place] [address] 42084 #### 30298-5 #### [facility] ([id number]) [address], [address] [place] [address] Erythrocyte distribution width (RBC) [Ratio] 18.9 % High 11.5-15.0 [facility] Comment on above: Performed By: #### C BCA #### [facility] ([id number]) [address] [place] [address] 10745 #### 43378-0 #### [facility] ([id number]) [address], [address] [place] [address] Hematocrit (Bld) [Volume fraction] 30.3 % Low 35-47 [facility] Comment on above: Performed By: #### C BCA #### [facility] ([id number]) [address] [place] [address] 45869 #### 33559-6 #### [facility] ([id number]) [address], [address] [place] [address] Hemoglobin (Bld) [Mass/Vol] 9.7 g/dL Low 11.7-15.5 [facility] Comment on above: Performed By: #### C BCA #### [facility] ([id number]) [address] [place] [address] 58684 #### 49181-9 #### [facility] ([id number]) [address], [address] [place] [address] Lymphocytes (Bld) [#/Vol] 3.8 10*3/uL High 1.0-3.5 [facility] Comment on above: Performed By: #### C BCA #### [facility] ([id number]) [address] [place] [address] 52789 #### 49444-6 #### [facility] ([id number]) [address], [address] [place] [address] Lymphocytes/100 WBC (Bld) 32.9 % Normal [facility] Comment on above: Performed By: #### C BCA #### [facility] ([id number]) [address] [place] [address] 14471 #### 78007-3 #### [facility] ([id number]) [address], [address] [place] [address] MCH (RBC) [Entitic mass] 24.6 pg Low 27-34 [facility] Comment on above: Performed By: #### C BCA #### [facility] ([id number]) [address] [place] [address] 08681 #### 20625-3 #### [facility] ([id number]) [address] [place] [address] MCHC (RBC) [Mass/Vol] 32.1 g/dL Normal 32-36 [facility] Comment on above: Performed By: #### C BCA #### [facility] ([id number]) [address] [place] [address] 13429 #### 38882-2 #### [facility] ([id number]) [address] [place] [address] MCV (RBC) [Entitic vol] 77 fL Low 80-100 [facility] Comment on above: Performed By: #### C BCA #### [facility] ([id number]) [address] [place] [address] 66838 #### 78470-0 #### [facility] ([id number]) [address] [place] [address] Monocytes (Bld) [#/Vol] 1.3 10*3/uL High 0-0.9 [facility] Comment on above: Performed By: #### C BCA #### [facility] ([id number]) [address] [place] [address] 43601 #### 24023-8 #### [facility] ([id number]) [address], [address] [place] [address] Monocytes/100 WBC (Bld) 11.0 % Normal [facility] Comment on above: Performed By: #### C BCA #### [facility] ([id number]) [address] [place] [address] 01595 #### 08562-4 #### [facility] ([id number]) [address] [place] [address] Neutrophils/100 WBC (Bld) 53.1 % Normal [facility] Comment on above: Performed By: #### C BCA #### [facility] ([id number]) [address] [place] [address] 81008 #### 56858-1 #### [facility] ([id number]) [address], [address] [place] [address] Platelet mean volume (Bld) [Entitic vol] 7.5 fL Normal 7-12 [facility] Comment on above: Performed By: #### C BCA #### [facility] ([id number]) [address] [place] [address] 46105 #### [id number] #### [facility] ([id number]) [address] [place] [address] Platelets (Bld) [#/Vol] 320 10*3/uL Normal 150-450 [facility] Comment on above: Performed By: #### C BCA #### [facility] ([id number]) [address] [place] [address] 80145 #### 01073-0 #### [facility] ([id number]) [address], [address] [place] [address] RBC COUNT 3.96 X10E12/L Normal 3.80-5.20 [facility] Comment on above: Performed By: #### C BCA #### [facility] ([id number]) [address] [place] [address] 71637 #### 57869-5 #### [facility] ([id number]) [address], [address] [place] [address] WBC (Bld) [#/Vol] 11.7 10*3/uL High 4.0-11.0 [facility] Comment on above: Performed By: #### C BCA #### [facility] ([id number]) [address] [place] [address] 66323 #### 16826-6 #### [facility] ([id number]) [address], [address] [place] [address] ESR Photometric method (Bld) [Velocity]on 03-05-2024 ESR, ERYTHROCYTE SEDIMENTATION RATE 43 mm/h High 0-30 [facility] Comment on above: Performed By: #### C BCA #### [facility] ([id number]) [address] [place] [address] 99540 #### 70658-0 #### [facility] ([id number]) [address], [address] [place] [address] FL SWALLOW MOTILITY FUNCTION on 03-04-2024 FL [...] Dowell MD on 03/04/2024 10:58 AM Normal [facility] URINALYSISon 03-03-2024 Bilirubin Ql (U) Negative Normal NEG [facility] Comment on above: Performed By: #### U A #### [facility] ([id number]) [address] [place] [address] 54773 BLOOD/HGB Negative Normal NEG [facility] Comment on above: Performed By: #### U A #### [facility] ([id number]) [address] [place] [address] 59219 Color (U) YELLOW Normal YELLOW [facility] Comment on above: Performed By: #### U A #### [facility] ([id number]) [address] [place] [address] 58083 Glucose Ql (U) Negative Normal NEG [facility] Comment on above: Performed By: #### U A #### [facility] ([id number]) [address] [place] [address] 07918 Ketones Ql (U) Negative Normal NEG [facility] Comment on above: Performed By: #### U A #### [facility] ([id number]) [address] [place] [address] 87061 Leukocyte esterase Test strip Ql (U) Negative Normal NEG [facility] Comment on above: Performed By: #### U A #### [facility] ([id number]) [address] [place] [address] 93762 Nitrite Ql (U) Negative Normal NEG [facility] Comment on above: Performed By: #### U A #### [facility] ([id number]) [address] [place] [address] 07709 pH (U) 6.0 [pH] Normal 5.0-8.5 [facility] Comment on above: Performed By: #### U A #### [facility] ([id number]) [address] [place] [address] 79080 Protein Ql (U) Negative Normal NEG [facility] Comment on above: Performed By: #### U A #### [facility] ([id number]) [address] [place] [address] 83550 Specific gravity (U) [Rel density] 1.020 Normal 1.003-1.03 5 [facility] Comment on above: Performed By: #### U A #### [facility] ([id number]) [address] [place] [address] 57856 TURBIDITY CLEAR Normal CLEAR [facility] Comment on above: Performed By: #### U A #### [facility] ([id number]) [address] [place] [address] 13893 Urobilinogen Qn (U) 0.2 {Jose'U}/dL Normal <1.1 [facility] Comment on above: Performed By: #### U A #### [facility] ([id number]) [address] [place] [address] 11839 URINE CULTUREon 03-03-2024 Bacteria identified Cx Nom (U) CULTURE RESULTS NO GROWTH AT <1000 CFU/mL Normal [facility] Comment on above: Performed By: #### 6 30-4 #### [facility] ([id number]) [address] [place] [address], [address] [place] [address] BASIC METABOLIC PANLon 03-02 Anion gap [Moles/Vol] 9 mmol/L Normal 5-15 [facility] Comment on above: Performed By: #### C BCA, BMP #### [facility] ([id number]) [address] [place] [address] 64903 Calcium [Mass/Vol] 8.4 mg/dL Low 8.5-10.5 [facility] Comment on above: Performed By: #### C BCA, BMP #### [facility] ([id number]) [address] [place] [address] 45242 Chloride [Moles/Vol] 106 mmol/L Normal 98-109 [facility] Comment on above: Performed By: #### C SOWMYA, BMP #### [facility] ([id number]) [address] [place] [address] 09363 CO2 [Moles/Vol] 27 mmol/L Normal 22-32 [facility] Comment on above: Performed By: #### C SOWMYA, BMP #### [facility] ([id number]) [address] [place] [address] 50929 Creatinine [Mass/Vol] 1.13 mg/dL High 0.40-1.00 [facility] Comment on above: Result Comment: METH OD TRACEABLE TO IDMS STANDARD Performed By: #### C SOWMYA, BMP #### [facility] ([id number]) [address] [place] [address] 60464 GFR/1.73 sq M.predicted among non-blacks MDRD (S/P/Bld) [Vol rate/Area] 50 mL/min/{1.73_m2} Low >59 [facility] Comment on above: Result Comment: Reported eGFR is based on the CKD-EPI 2020 equation that does not use a race coefficient. Performed By: #### C BCA, BMP #### [facility] ([id number]) [address] [place] [address] 80290 Glucose [Mass/Vol] 106 mg/dL High 65-99 [facility] Comment on above: Performed By: #### C BCA, BMP #### [facility] ([id number]) [address] [place] [address] 42972 Potassium [Moles/Vol] 3.4 mmol/L Low 3.5-5.0 [facility] Comment on above: Performed By: #### C SOWMYA, BMP #### [facility] ([id number]) [address] [place] [address] 46272 Sodium [Moles/Vol] 142 mmol/L Normal 134-146 [facility] Comment on above: Performed By: #### C SOWMYA, BMP #### [facility] ([id number]) [address] [place] [address] 94334 Urea nitrogen [Mass/Vol] 35 mg/dL High 5-27 [facility] Comment on above: Performed By: #### C SOWMYA, BMP #### [facility] ([id number]) [address] [place] [address] 04497 CBC AND AUTO DIFFon 03-02-20 24 ABSOLUTE BASOPHIL 0.1 X10E9/L Normal 0.0-0.2 [facility] Comment on above: Performed By: #### C SOWMYA, BMP #### [facility] ([id number]) [address] [place] [address] 09862 ABSOLUTE NEUTROPHIL 7.0 X10E9/L High 1.5-6.6 [facility] Comment on above: Performed By: #### C SOWMYA, BMP #### [facility] ([id number]) [address] [place] [address] 01515 Basophils/100 WBC (Bld) 0.6 % Normal [facility] Comment on above: Performed By: #### C SOWMYA, BMP #### [facility] ([id number]) [address] [place] [address] 69242 Eosinophils (Bld) [#/Vol] 0.1 10*3/uL Normal 0.0-0.4 [facility] Comment on above: Performed By: #### C SOWMYA, BMP #### [facility] ([id number]) [address] [place] [address] 15499 Eosinophils/100 WBC (Bld) 0.5 % Normal [facility] Comment on above: Performed By: #### C SOWMYA, BMP #### [facility] ([id number]) [address] [place] [address] 10041 Erythrocyte distribution width (RBC) [Ratio] 18.2 % High 11.5-15.0 [facility] Comment on above: Performed By: #### C SOWMYA, BMP #### [facility] ([id number]) [address] [place] [address] 67968 Hematocrit (Bld) [Volume fraction] 30.8 % Low 35-47 [facility] Comment on above: Performed By: #### C SOWMYA, BMP #### [facility] ([id number]) [address] [place] [address] 91418 Hemoglobin (Bld) [Mass/Vol] 10.0 g/dL Low 11.7-15.5 [facility] Comment on above: Performed By: #### C SOWMYA, BMP #### [facility] ([id number]) [address] [place] [address] 90188 Lymphocytes (Bld) [#/Vol] 4.1 10*3/uL High 1.0-3.5 [facility] Comment on above: Performed By: #### C SOWMYA, BMP #### [facility] ([id number]) [address] [place] [address] 05246 Lymphocytes/100 WBC (Bld) 32.1 % Normal [facility] Comment on above: Performed By: #### C SOWMYA, BMP #### [facility] ([id number]) [address] [place] [address] 41145 MCH (RBC) [Entitic mass] 24.9 pg Low 27-34 [facility] Comment on above: Performed By: #### C SOWMYA, BMP #### [facility] ([id number]) [address] [place] [address] 06186 MCHC (RBC) [Mass/Vol] 32.3 g/dL Normal 32-36 [facility] Comment on above: Performed By: #### C SOWMYA, BMP #### [facility] ([id number]) [address] [place] [address] 28212 MCV (RBC) [Entitic vol] 77 fL Low 80-100 [facility] Comment on above: Performed By: #### C SOWMYA, BMP #### [facility] ([id number]) [address] [place] [address] 42164 Monocytes (Bld) [#/Vol] 1.5 10*3/uL High 0-0.9 [facility] Comment on above: Performed By: #### C SOWMYA, BMP #### [facility] ([id number]) [address] [place] [address] 26969 Monocytes/100 WBC (Bld) 11.5 % Normal [facility] Comment on above: Performed By: #### C SOWMYA, BMP #### [facility] ([id number]) [address] [place] [address] 08187 Neutrophils/100 WBC (Bld) 55.3 % Normal [facility] Comment on above: Performed By: #### C SOWMYA, BMP #### [facility] ([id number]) [address] [place] [address] 76659 Platelet mean volume (Bld) [Entitic vol] 7.4 fL Normal 7-12 [facility] Comment on above: Performed By: #### C SOWMYA, BMP #### [facility] ([id number]) [address] [place] [address] 28802 Platelets (Bld) [#/Vol] 360 10*3/uL Normal 150-450 [facility] Comment on above: Performed By: #### C SOWMYA, BMP #### [facility] ([id number]) [address] [place] [address] 02216 RBC COUNT 4.00 X10E12/L Normal 3.80-5.20 [facility] Comment on above: Performed By: #### C BCA, BMP #### [facility] ([id number]) [address] [place] [address] 39745 WBC (Bld) [#/Vol] 12.7 10*3/uL High 4.0-11.0 [facility] Comment on above: Performed By: #### C SOWMYA, BMP #### [facility] ([id number]) [address] [place] [address] 25037 BASIC METABOLIC PANLon 02-26 Anion gap [Moles/Vol] 8 mmol/L Normal 5-15 [facility] Comment on above: Performed By: #### C SOWMYA, BMP #### [facility] ([id number]) [address] [place] [address] 53036 Calcium [Mass/Vol] 8.7 mg/dL Normal 8.5-10.5 [facility] Comment on above: Performed By: #### C BCA, BMP #### [facility] ([id number]) [address] [place] [address] 69604 Chloride [Moles/Vol] 97 mmol/L Low 98-109 [facility] Comment on above: Performed By: #### C BCA, BMP #### [facility] ([id number]) [address] [place] [address] 64801 CO2 [Moles/Vol] 29 mmol/L Normal 22-32 [facility] Comment on above: Performed By: #### C BCA, BMP #### [facility] ([id number]) [address] [place] [address] 32523 Creatinine [Mass/Vol] 1.22 mg/dL High 0.40-1.00 [facility] Comment on above: Result Comment: METH OD TRACEABLE TO IDMS STANDARD Performed By: #### C SOWMYA, BMP #### [facility] ([id number]) [address] [place] [address] 89537 GFR/1.73 sq M.predicted among non-blacks MDRD (S/P/Bld) [Vol rate/Area] 45 mL/min/{1.73_m2} Low >59 [facility] Comment on above: Result Comment: Reported eGFR is based on the CKD-EPI 2020 equation that does not use a race coefficient. Performed By: #### C SOWMYA, BMP #### [facility] ([id number]) [address] [place] [address] 95471 Glucose [Mass/Vol] 123 mg/dL High 65-99 [facility] Comment on above: Performed By: #### Timmy DENG, BMP #### [facility] ([id number]) [address] [place] [address] 15827 Potassium [Moles/Vol] 4.0 mmol/L Normal 3.5-5.0 [facility] Comment on above: Performed By: #### C SOWMYA, BMP #### [facility] ([id number]) [address] [place] [address] 97246 Sodium [Moles/Vol] 134 mmol/L Normal 134-146 [facility] Comment on above: Performed By: #### C SOWMYA, BMP #### [facility] ([id number]) [address] [place] [address] 10713 Urea nitrogen [Mass/Vol] 35 mg/dL High 5-27 [facility] Comment on above: Performed By: #### Timmy DENG, BMP #### [facility] ([id number]) [address] [place] [address] 78166 CBC AND AUTO DIFFon 02-27-20 24 Eosinophils (Bld) [#/Vol] 0.2 10*3/uL Normal 0.0-0.4 [facility] Comment on above: Performed By: #### C SOWMYA, BMP #### [facility] ([id number]) [address] [place] [address] 21699 Eosinophils/100 WBC (Bld) 1.0 % Normal [facility] Comment on above: Performed By: #### C SOWMYA, BMP #### [facility] ([id number]) [address] [place] [address] 00754 Erythrocyte distribution width (RBC) [Ratio] 18.2 % High 11.5-15.0 [facility] Comment on above: Performed By: #### C SOWMYA, BMP #### [facility] ([id number]) [address] [place] [address] 43490 Hematocrit (Bld) [Volume fraction] 35.1 % Normal 35-47 [facility] Comment on above: Performed By: #### C SOWMYA, BMP #### [facility] ([id number]) [address] [place] [address] 39438 Hemoglobin (Bld) [Mass/Vol] 11.4 g/dL Low 11.7-15.5 [facility] Comment on above: Performed By: #### C SOWMYA, BMP #### [facility] ([id number]) [address] [place] [address] 09206 Lymphocytes (Bld) [#/Vol] 4.0 10*3/uL High 1.0-3.5 [facility] Comment on above: Performed By: #### C SOWMYA, BMP #### [facility] ([id number]) [address] [place] [address] 61099 Lymphocytes/100 WBC (Bld) 21.0 % Normal [facility] Comment on above: Performed By: #### C BCA, BMP #### [facility] ([id number]) [address] [place] [address] 45109 MCH (RBC) [Entitic mass] 24.6 pg Low 27-34 [facility] Comment on above: Performed By: #### C SOWMYA, BMP #### [facility] ([id number]) [address] [place] [address] 36503 MCHC (RBC) [Mass/Vol] 32.5 g/dL Normal 32-36 [facility] Comment on above: Performed By: #### C SOWMYA, BMP #### [facility] ([id number]) [address] [place] [address] 45658 MCV (RBC) [Entitic vol] 76 fL Low 80-100 [facility] Comment on above: Performed By: #### C SOWMYA, BMP #### [facility] ([id number]) [address] [place] [address] 60463 Monocytes (Bld) [#/Vol] 1.4 10*3/uL High 0-0.9 [facility] Comment on above: Performed By: #### C SOWMYA, BMP #### [facility] ([id number]) [address] [place] [address] 57253 Monocytes/100 WBC (Bld) 7.6 % Normal [facility] Comment on above: Performed By: #### C SOWMYA, BMP #### [facility] ([id number]) [address] [place] [address] [id number] MYELOCYTE 1.0 % Normal [facility] Comment on above: Performed By: #### C SOWMYA, BMP #### [facility] ([id number]) [address] [place] [address] [phone] Neutrophils (Bld) [#/Vol] 13.1 10*3/uL High 1.5-6.6 [facility] Comment on above: Performed By: #### C SOWMYA, BMP #### [facility] ([id number]) [address] [place] [address] [id number] Platelet mean volume (Bld) [Entitic vol] 7.2 fL Normal 7-12 [facility] Comment on above: Performed By: #### C SOWMYA, BMP #### [facility] ([id number]) [address] [place] [address] 33945 Platelets (Bld) [#/Vol] 398 10*3/uL Normal 150-450 [facility] Comment on above: Performed By: #### C SOWMYA, BMP #### [facility] ([id number]) [address] [place] [address] RBC COUNT 4.63 X10E12/L Normal 3.80-5.20 [facility] Comment on above: Performed By: #### C SOWMYA, BMP #### [facility] ([id number]) [address] [place] [address] SEG NEUTROPHIL 69.4 % Normal [facility] Comment on above: Performed By: #### C SOWMYA, BMP #### [facility] ([id number]) [address] [place] [address] WBC (Bld) [#/Vol] 18.9 10*3/uL High 4.0-11.0 [facility] Comment on above: Performed By: #### C SOWMYA, BMP #### [facility] ([id number]) [address] [place] [address] CBC AND AUTO DIFFon 02-25-20 24 Band form neutrophils/100 WBC (Bld) 1.0 % Normal [facility] Comment on above: Performed By: #### E LEC #### [facility] ([id number]) [address] [place] [address], [address] [place] [address] Erythrocyte distribution width (RBC) [Ratio] 18.4 % High 11.5-15.0 [facility] Comment on above: Performed By: #### E LEC #### [facility] ([id number]) [address], [address] [place] [address] Hematocrit (Bld) [Volume fraction] 36.0 % Normal 35-47 [facility] Comment on above: Performed By: #### E LEC #### [facility] ([id number]) [address], [address] [place] [address] Hemoglobin (Bld) [Mass/Vol] 11.6 g/dL Low 11.7-15.5 [facility] Comment on above: Performed By: #### E LEC #### [facility] ([id number]) [address], [address] [place] [address] HYPOCHROMIA 1+ Abnormal NONE [facility] Comment on above: Performed By: #### E LEC #### [facility] ([id number]) [address], [address] [place] [address] Lymphocytes (Bld) [#/Vol] 4.6 10*3/uL High 1.0-3.5 [facility] Comment on above: Performed By: #### E LEC #### [facility] ([id number]) [address], [address] [place] [address] Lymphocytes/100 WBC (Bld) 28.0 % Normal [facility] Comment on above: Performed By: #### E LEC #### [facility] ([id number]) [address], [address] [place] [address] MCH (RBC) [Entitic mass] 24.9 pg Low 27-34 [facility] Comment on above: Performed By: #### E LEC #### [facility] ([id number]) [address], [address] [place] [address] MCHC (RBC) [Mass/Vol] 32.3 g/dL Normal 32-36 [facility] Comment on above: Performed By: #### E LEC #### [facility] ([id number]) [address], [address] [place] [address] MCV (RBC) [Entitic vol] 77 fL Low 80-100 [facility] Comment on above: Performed By: #### E LEC #### [facility] ([id number]) [address], [address] [place] [address] Monocytes (Bld) [#/Vol] 1.3 10*3/uL High 0-0.9 [facility] Comment on above: Performed By: #### E LEC #### [facility] ([id number]) [address], [address] [place] [address] Monocytes/100 WBC (Bld) 8.0 % Normal [facility] Comment on above: Performed By: #### E LEC #### [facility] ([id number]) [address], [address] [place] [address] MYELOCYTE 1.0 % Normal [facility] Comment on above: Performed By: #### E LEC #### [facility] ([id number]) [address], [address] [place] [address] Neutrophils (Bld) [#/Vol] 10.2 10*3/uL High 1.5-6.6 [facility] Comment on above: Performed By: #### E LEC #### [facility] ([id number]) [address], [address] [place] [address] Platelet mean volume (Bld) [Entitic vol] 6.8 fL Low 7-12 [facility] Comment on above: Performed By: #### E LEC #### [facility] ([id number]) [address], [address] [place] [address] Platelets (Bld) [#/Vol] 480 10*3/uL High 150-450 [facility] Comment on above: Performed By: #### E LEC #### [facility] ([id number]) [address], [address] [place] [address] RBC COUNT 4.66 X10E12/L Normal 3.80-5.20 [facility] Comment on above: Performed By: #### E LEC #### [facility] ([id number]) [address], [address] [place] [address] SEG NEUTROPHIL 62.0 % Normal [facility] Comment on above: Performed By: #### E LEC #### [facility] ([id number]) [address], [address] [place] [address] WBC (Bld) [#/Vol] 16.3 10*3/uL High 4.0-11.0 [facility] Comment on above: Performed By: #### E LEC #### [facility] ([id number]) [address], [address] [place] [address] COMPREHENSIVE METABOLIC PANE Harsha 02-25-2024 Albumin [Mass/Vol] 2.8 g/dL Low 3.2-5.3 [facility] Comment on above: Performed By: #### E LEC #### [facility] ([id number]) [address], [address] [place] [address] ALP [Catalytic activity/Vol] 61 U/L Normal 39-130 [facility] Comment on above: Performed By: #### E LEC #### [facility] ([id number]) [address], [address] [place] [address] ALT [Catalytic activity/Vol] 16 U/L Normal 0-31 [facility] Comment on above: Performed By: #### E LEC #### [facility] ([id number]) [address], [address] [place] [address] Anion gap [Moles/Vol] 8 mmol/L Normal 5-15 [facility] Comment on above: Performed By: #### E LEC #### [facility] ([id number]) [address], [address] [place] [address] AST [Catalytic activity/Vol] 20 U/L Normal 0-41 [facility] Comment on above: Performed By: #### E LEC #### [facility] ([id number]) [address], [address] [place] [address] Bilirubin [Mass/Vol] 0.3 mg/dL Normal 0.3-1.2 [facility] Comment on above: Performed By: #### E LEC #### [facility] ([id number]) [address], [address] [place] [address] Calcium [Mass/Vol] 9.1 mg/dL Normal 8.5-10.5 [facility] Comment on above: Performed By: #### E LEC #### [facility] ([id number]) [address], [address] [place] [address] Chloride [Moles/Vol] 101 mmol/L Normal 98-109 [facility] Comment on above: Performed By: #### E LEC #### [facility] ([id number]) [address], [address] [place] [address] CO2 [Moles/Vol] 29 mmol/L Normal 22-32 [facility] Comment on above: Performed By: #### E LEC #### [facility] ([id number]) [address], [address] [place] [address] Creatinine [Mass/Vol] 1.16 mg/dL High 0.40-1.00 [facility] Comment on above: Result Comment: METH OD TRACEABLE TO IDMS STANDARD Performed By: #### E LEC #### [facility] ([id number]) [address], [address] [place] [address] GFR/1.73 sq M.predicted among non-blacks MDRD (S/P/Bld) [Vol rate/Area] 48 mL/min/{1.73_m2} Low >59 [facility] Comment on above: Result Comment: Reported eGFR is based on the CKD-EPI 2020 equation that does not use a race coefficient. Performed By: #### E LEC #### [facility] ([id number]) [address], [address] [place] [address] Glucose [Mass/Vol] 73 mg/dL Normal 65-99 [facility] Comment on above: Performed By: #### E LEC #### [facility] ([id number]) [address], [address] [place] [address] Potassium [Moles/Vol] 5.0 mmol/L Normal 3.5-5.0 [facility] Comment on above: Performed By: #### E LEC #### [facility] ([id number]) [address], [address] [place] [address] Protein [Mass/Vol] 6.2 g/dL Normal 6.0-8.0 [facility] Comment on above: Performed By: #### E LEC #### [facility] ([id number]) [address], [address] [place] [address] Sodium [Moles/Vol] 138 mmol/L Normal 134-146 [facility] Comment on above: Performed By: #### E LEC #### [facility] ([id number]) [address], [address] [place] [address] Urea nitrogen [Mass/Vol] 44 mg/dL High 5-27 [facility] Comment on above: Performed By: #### E LEC #### [facility] ([id number]) [address], [address] [place] [address] Creatinine (U) [Mass/Vol]on 02-25-2024 URINE CREATININE,RDM 57.71 mg/dL Normal [facility] Comment on above: Performed By: #### E LEC #### [facility] ([id number]) [address], [address] [place] [address] MAGNESIUMon 02-25-2024 Magnesium [Mass/Vol] 1.9 mg/dL Normal 1.8-2.6 [facility] Comment on above: Performed By: #### E LEC #### [facility] ([id number]) [address], [address] [place] [address] Osmolality (U) [Osmolality]o n 02-25-2024 URINE OSMOLALITY 631 mOsm/kg H2 Normal 300-1300 [facility] Comment on above: Performed By: #### E LEC #### [facility] ([id number]) [address] [facility] [facility] [place] [address] PHOSPHORUSon 02-25-2024 Phosphate [Mass/Vol] 5.9 mg/dL High 2.4-4.9 [facility] Comment on above: Result Comment: SPEC IMEN HEMOLYZED, RESULTS INCREASED SLIGHTLY HEMOLYZED Performed By: #### E LEC #### [facility] ([id number]) [address], [address] [place] [address] Provider Letteron 02-25-2024 Provider Letter (Inserted Image. Sahra ble to display) February 25, 2024 GERA PERDUE [address] [place] [address] : 1945 Dear Gera Perdue , We [...] Sincerely, [facility] option #[address] [facility] URINE SODIUM,RANDOMon 2023 Sodium (U) [Moles/Vol] 119 mmol/L Normal [facility] Comment on above: Performed By: #### E LEC #### [facility] ([id number]) [address], [address] [place] [address] AFB CULTURE(CONCENTRATED)on 02-24-2024 Mycobacterium sp identified Org specific cx Nom (Unsp spec) SPECIMEN NOTES SPECIMEN 2 AFB SMEAR NO ACID FAST BACILLI (CONCENTRATED SMEAR) CULTURE RESULTS NO ACID FAST BACILLI ISOLATED IN 8 WEEKS Normal [facility] Comment on above: Performed By: #### E LEC #### [facility] ([id number]) [address], [address] [place] [address] Mycobacterium sp identified Org specific cx Nom (Unsp spec) SPECIMEN NOTES SPECIMEN 1 AFB SMEAR NO ACID FAST BACILLI (CONCENTRATED SMEAR) CULTURE RESULTS NO ACID FAST BACILLI ISOLATED IN 8 WEEKS Normal [facility] Comment on above: Performed By: #### E LEC #### [facility] ([id number]) [address], [address] [place] [address] AND DIFFon 2023 BODY FLUID COMMENT Interpreta tion-- ------ Normal [facility] Comment on above: Result Comment: Refe rence values for this fluid type are undefined, as fluid accumulation is considered abnormal. Performed By: #### E LEC #### [facility] ([id number]) [address], [address] [place] [address] FLUID CLARITY HAZY Normal [facility] Comment on above: Performed By: #### E LEC #### [facility] ([id number]) [address], [address] [place] [address] FLUID COLOR COLORLESS Normal [facility] Comment on above: Performed By: #### E LEC #### [facility] ([id number]) [address], [address] [place] [address] FLUID LYMPHOCYTE 6 % Normal [facility] Comment on above: Performed By: #### E LEC #### [facility] ([id number]) [address], [address] [place] [address] FLUID NEUTROPHILS 69 % Normal [facility] Comment on above: Performed By: #### E LEC #### [facility] ([id number]) [address], [address] [place] [address] 34 /uL Normal [facility] Comment on above: Performed By: #### E LEC #### [facility] ([id number]) [address], [address] [place] [address] FLUID SPECIMEN TYPE BRONCHOALVEOLAR LAVAGE Normal [facility] Comment on above: Result Comment: RIGH T LUNG, LOWER LOBE SPECIMEN 2 Performed By: #### E LEC #### [facility] ([id number]) [address], [address] [place] [address] MACROPHAGES 25 % Normal [facility] Comment on above: Performed By: #### E LEC #### [facility] ([id number]) [address], [address] [place] [address] 440 /uL Normal [facility] Comment on above: Performed By: #### E LEC #### [facility] ([id number]) [address], [address] [place] [address] CBC AND AUTO DIFFon 02-24-20 Erythrocyte distribution width (RBC) [Ratio] 18.3 % High 11.5-15.0 [facility] Comment on above: Performed By: #### E LEC #### [facility] ([id number]) [address], [address] [place] [address] Hematocrit (Bld) [Volume fraction] 34.7 % Low 35-47 [facility] Comment on above: Performed By: #### E LEC #### [facility] ([id number]) [address], [address] [place] [address] Hemoglobin (Bld) [Mass/Vol] 11.2 g/dL Low 11.7-15.5 [facility] Comment on above: Performed By: #### E LEC #### [facility] ([id number]) [address], [address] [place] [address] Lymphocytes (Bld) [#/Vol] 2.8 10*3/uL Normal 1.0-3.5 [facility] Comment on above: Performed By: #### E LEC #### [facility] ([id number]) [address], [address] [place] [address] Lymphocytes/100 WBC (Bld) 17.0 % Normal [facility] Comment on above: Performed By: #### E LEC #### [facility] ([id number]) [address], [address] [place] [address] MCH (RBC) [Entitic mass] 24.6 pg Low 27-34 [facility] Comment on above: Performed By: #### E LEC #### [facility] ([id number]) [address], [address] [place] [address] MCHC (RBC) [Mass/Vol] 32.1 g/dL Normal 32-36 [facility] Comment on above: Performed By: #### E LEC #### [facility] ([id number]) [address], [address] [place] [address] MCV (RBC) [Entitic vol] 77 fL Low 80-100 [facility] Comment on above: Performed By: #### E LEC #### [facility] ([id number]) [address], [address] [place] [address] Metamyelocytes/100 WBC (Bld) 1.0 % Normal [facility] Comment on above: Performed By: #### E LEC #### [facility] ([id number]) [address], [address] [place] [address] Monocytes (Bld) [#/Vol] 0.7 10*3/uL Normal 0-0.9 [facility] Comment on above: Performed By: #### E LEC #### [facility] ([id number]) [address], [address] [place] [address] Monocytes/100 WBC (Bld) 4.0 % Normal [facility] Comment on above: Performed By: #### E LEC #### [facility] ([id number]) [address], [address] [place] [address] Neutrophils (Bld) [#/Vol] 12.7 10*3/uL High 1.5-6.6 [facility] Comment on above: Performed By: #### E LEC #### [facility] ([id number]) [address], [address] [place] [address] Platelet mean volume (Bld) [Entitic vol] 6.7 fL Low 7-12 [facility] Comment on above: Performed By: #### E LEC #### [facility] ([id number]) [address], [address] [place] [address] Platelets (Bld) [#/Vol] 479 10*3/uL High 150-450 [facility] Comment on above: Performed By: #### E LEC #### [facility] ([id number]) [address], [address] [place] [address] RBC COUNT 4.54 X10E12/L Normal 3.80-5.20 [facility] Comment on above: Performed By: #### E LEC #### [facility] ([id number]) [address], [address] [place] [address] RBC morphology finding Nom (Bld) NORMAL Normal [facility] Comment on above: Performed By: #### E LEC #### [facility] ([id number]) [address], [address] [place] [address] SEG NEUTROPHIL 78.0 % Normal [facility] Comment on above: Performed By: #### E LEC #### [facility] ([id number]) [address], [address] [place] [address] WBC (Bld) [#/Vol] 16.4 10*3/uL High 4.0-11.0 [facility] Comment on above: Performed By: #### E LEC #### [facility] ([id number]) [address], [address] [place] [address] COMPREHENSIVE METABOLIC PANE Harsha 02-24-2024 Albumin [Mass/Vol] 2.8 g/dL Low 3.2-5.3 [facility] Comment on above: Performed By: #### E LEC #### [facility] ([id number]) [address], [address] [place] [address] ALP [Catalytic activity/Vol] 63 U/L Normal 39-130 [facility] Comment on above: Performed By: #### E LEC #### [facility] ([id number]) [address], [address] [place] [address] ALT [Catalytic activity/Vol] 11 U/L Normal 0-31 [facility] Comment on above: Performed By: #### E LEC #### [facility] ([id number]) [address], [address] [place] [address] Anion gap [Moles/Vol] 6 mmol/L Normal 5-15 [facility] Comment on above: Performed By: #### E LEC #### [facility] ([id number]) [address], [address] [place] [address] AST [Catalytic activity/Vol] 12 U/L Normal 0-41 [facility] Comment on above: Performed By: #### E LEC #### [facility] ([id number]) [address], [address] [place] [address] Bilirubin [Mass/Vol] 0.2 mg/dL Low 0.3-1.2 [facility] Comment on above: Performed By: #### E LEC #### [facility] ([id number]) [address], [address] [place] [address] Calcium [Mass/Vol] 9.1 mg/dL Normal 8.5-10.5 [facility] Comment on above: Performed By: #### E LEC #### [facility] ([id number]) [address], [address] [place] [address] Chloride [Moles/Vol] 101 mmol/L Normal 98-109 [facility] Comment on above: Performed By: #### E LEC #### [facility] ([id number]) [address], [address] [place] [address] CO2 [Moles/Vol] 31 mmol/L Normal 22-32 [facility] Comment on above: Performed By: #### E LEC #### [facility] ([id number]) [address], [address] [place] [address] Creatinine [Mass/Vol] 1.05 mg/dL High 0.40-1.00 [facility] Comment on above: Result Comment: METH OD TRACEABLE TO IDMS STANDARD Performed By: #### E LEC #### [facility] ([id number]) [address], [address] [place] [address] GFR/1.73 sq M.predicted among non-blacks MDRD (S/P/Bld) [Vol rate/Area] 54 mL/min/{1.73_m2} Low >59 [facility] Comment on above: Result Comment: Reported eGFR is based on the CKD-EPI 2020 equation that does not use a race coefficient. Performed By: #### E LEC #### [facility] ([id number]) [address], [address] [place] [address] Glucose [Mass/Vol] 91 mg/dL Normal 65-99 [facility] Comment on above: Performed By: #### E LEC #### [facility] ([id number]) [address] [place] [address] Potassium [Moles/Vol] 4.5 mmol/L Normal 3.5-5.0 [facility] Comment on above: Performed By: #### E LEC #### [facility] ([id number]) [address] [facility] [address] [place] [address] Protein [Mass/Vol] 6.2 g/dL Normal 6.0-8.0 [facility] Comment on above: Performed By: #### E LEC #### [facility] ([id number]) [address] [address] [place] [address] Sodium [Moles/Vol] 138 mmol/L Normal 134-146 [facility] Comment on above: Performed By: #### E LEC #### [facility] ([id number]) [address] [address] [place] [address] Urea nitrogen [Mass/Vol] 33 mg/dL High 5-27 [facility] Comment on above: Performed By: #### E LEC #### [facility] ([id number]) [address] [place] [address] Cytologyon 02-24-2024 Cytology Normal [facility] Comment on above: Result Comment: [facility] [address] [place] [address] Cytology Consultation Patient Name:LIDA PERDUEB:1945 (Age: 78)Gender:FTaken:02/24/2024eported:02/27/2024 16:56Physician(s):Elsa Quinonez MD ([phone])Copy To:Noe Huang [facility] #:[id number]. Rec. #:[id number]: #[id number] Final Cytologic Diagnosis 1. Right lower lobe, bronchial washing: No malignant cells identified. 2. Right lower lobe, bronchoalveolar lavage: No malignant cells identified. 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 2 H&E, Non ASSOCIATE [employer] ThinPrep 2: Right lower lobe, bronchoalveolar lavage Cell block for Non-corporate development intern (M), Level 2 H&E, Non [employer] Fee Code(s): 1; 56529, 20393 2; 47803, 18200 FUNGAL CULTUREon 02-24-2024 Fungus identified Cx Nom (Unsp spec) SPECIMEN NOTES SPECIMEN 2 FUNGAL SMEAR NO FUNGAL ELEMENTS SEEN ON CONCENTRATED SMEAR CULTURE RESULTS NO FUNGUS ISOLATED AFTER 4 WEEKS Normal [facility] Comment on above: Performed By: #### E LEC #### [facility] ([id number]) [address] [place] [address], [address] [place] [address] Fungus identified Cx Nom (Unsp spec) SPECIMEN NOTES SPECIMEN 1 FUNGAL SMEAR NO FUNGAL ELEMENTS SEEN ON CONCENTRATED SMEAR CULTURE RESULTS NO FUNGUS ISOLATED AFTER 4 WEEKS Normal [facility] Comment on above: Performed By: #### E LEC #### [facility] ([id number]) [address] [facility] [place] [address] LOWER RESPIRATORY CULTUREon 02-24-2024 Bacteria identified Respiratory culture Nom (Sput) SPECIMEN NOTES SPECIMEN 2 GRAM STAIN 1 to 9 WHITE BLOOD CELLS/LPF 1 to 9 SQUAMOUS EPITHELIAL CELLS/LPF 0 CILIATED EPITHELIAL CELLS/LPF NO ORGANISMS SEEN CULTURE RESULTS RARE NORMAL ORAL KIMBERLY Normal [facility] Comment on above: Performed By: #### E LEC #### [facility] ([id number]) [address] [place] [address], [address] [place] [address] Bacteria identified Respiratory culture Nom (Sput) SPECIMEN NOTES SPECIMEN 1 GRAM STAIN 1 to 9 WHITE BLOOD CELLS/LPF 1 to 9 SQUAMOUS EPITHELIAL CELLS/LPF 0 CILIATED EPITHELIAL CELLS/LPF NO ORGANISMS SEEN CULTURE RESULTS RARE NORMAL ORAL KIMBERLY Normal [facility] Comment on above: Performed By: #### E LEC #### [facility] ([id number]) [address] [place] [address], [address] [place] [address] M. pneumoniae DNA ELIZABETH+probe Ql (Unsp spec)on 02-24-2024 M PNEUMONIAE DNA PCR See Below Normal [facility] Comment on above: Result Comment: NOTE [...] developed and its performance characteristics determined by [employer]. It has not been cleared or approved by the [place] Food and Drug Administration. This test was performed in a CLIA certified laboratory and is intended for clinical purposes. Performed By: [employer] [address] [place] [id number] Furnace Keeper: Eduardo Lindsay MD, PhD CLIA Number: [id number] SOURCE: Sputum Performed By: #### E LEC #### [facility] ([id number]) [address], [address] [place] [address] MAGNESIUMon 02-24-2024 Magnesium [Mass/Vol] 2.1 mg/dL Normal 1.8-2.6 [facility] Comment on above: Performed By: #### E LEC #### [facility] ([id number]) [address], [address] [place] [address] PHOSPHORUSon 02-24-2024 Phosphate [Mass/Vol] 4.6 mg/dL Normal 2.4-4.9 [facility] Comment on above: Performed By: #### E LEC #### [facility] ([id number]) [address], [address] [place] [address] Procalcitonin [place] [Mass/Vol]o n 02-24-2024 PROCALCITONIN <0.05 Normal <0.05 [facility] Comment on above: Result Comment: NOTE <0.50 ng/mL - Low risk of severe sepsis and/or septic shock. <2.00 ng/mL - Recommend retesting within 6-24 hours. >2.00 ng/mL - High risk of sepsis and/or septic shock. Performed By: #### E LEC #### [facility] ([id number]) [address] [address] [place] [address] CBC AND AUTO DIFFon 02-23-20 24 Band form neutrophils/100 WBC (Bld) 1.0 % Normal [facility] Comment on above: Performed By: #### E LEC #### [facility] ([id number]) [address] [place] [address] Erythrocyte distribution width (RBC) [Ratio] 18.2 % High 11.5-15.0 [facility] Comment on above: Performed By: #### E LEC #### [facility] ([id number]) [address], [address] [place] [address] Hematocrit (Bld) [Volume fraction] 35.2 % Normal 35-47 [facility] Comment on above: Performed By: #### E LEC #### [facility] ([id number]) [address] [place] [address] Hemoglobin (Bld) [Mass/Vol] 11.3 g/dL Low 11.7-15.5 [facility] Comment on above: Performed By: #### E LEC #### [facility] ([id number]) [address] [place] [address] HYPOCHROMIA 2+ Abnormal NONE [facility] Comment on above: Performed By: #### E LEC #### [facility] ([id number]) [address], [address] [place] [address] Lymphocytes (Bld) [#/Vol] 2.6 10*3/uL Normal 1.0-3.5 [facility] Comment on above: Performed By: #### E LEC #### [facility] ([id number]) [address] [place] [address] Lymphocytes/100 WBC (Bld) 16.0 % Normal [facility] Comment on above: Performed By: #### E LEC #### [facility] ([id number]) [address] [place] [address] MCH (RBC) [Entitic mass] 24.8 pg Low 27-34 [facility] Comment on above: Performed By: #### E LEC #### [facility] ([id number]) [address] [place] [address] MCHC (RBC) [Mass/Vol] 32.2 g/dL Normal 32-36 [facility] Comment on above: Performed By: #### E LEC #### [facility] ([id number]) [address] [place] [address] MCV (RBC) [Entitic vol] 77 fL Low 80-100 [facility] Comment on above: Performed By: #### E LEC #### [facility] ([id number]) [address] [place] [address] Monocytes (Bld) [#/Vol] 1.0 10*3/uL High 0-0.9 [facility] Comment on above: Performed By: #### E LEC #### [facility] ([id number]) [address] [place] [address] Monocytes/100 WBC (Bld) 6.0 % Normal [facility] Comment on above: Performed By: #### E LEC #### [facility] ([id number]) [address], [address] [place] [address] MYELOCYTE 3.0 % Normal [facility] Comment on above: Performed By: #### E LEC #### [facility] ([id number]) [address] [place] [address] Neutrophils (Bld) [#/Vol] 12.2 10*3/uL High 1.5-6.6 [facility] Comment on above: Performed By: #### E LEC #### [facility] ([id number]) [address] [place] [address] Platelet mean volume (Bld) [Entitic vol] 6.7 fL Low 7-12 [facility] Comment on above: Performed By: #### E LEC #### [facility] ([id number]) [address], [address] [place] [address] Platelets (Bld) [#/Vol] 493 10*3/uL High 150-450 [facility] Comment on above: Performed By: #### E LEC #### [facility] ([id number]) [address], [address] [place] [address] RBC COUNT 4.57 X10E12/L Normal 3.80-5.20 [facility] Comment on above: Performed By: #### E LEC #### [facility] ([id number]) [address], [address] [place] [address] SEG NEUTROPHIL 74.0 % Normal [facility] Comment on above: Performed By: #### E LEC #### [facility] ([id number]) [address] [place] [address] WBC (Bld) [#/Vol] 16.3 10*3/uL High 4.0-11.0 [facility] Comment on above: Performed By: #### E LEC #### [facility] ([id number]) [address], [address] [place] [address] CK [Catalytic activity/Vol]o n 02-23-2024 CPK <10 Low 24-170 [facility] Comment on above: Performed By: #### E LEC #### [facility] ([id number]) [address] [place] [address] COMPREHENSIVE METABOLIC PANE Harsha 02-23-2024 Albumin [Mass/Vol] 2.9 g/dL Low 3.2-5.3 [facility] Comment on above: Performed By: #### E LEC #### [facility] ([id number]) [address], [address] [place] [address] ALP [Catalytic activity/Vol] 69 U/L Normal 39-130 [facility] Comment on above: Performed By: #### E LEC #### [facility] ([id number]) [address], [address] [place] [address] ALT [Catalytic activity/Vol] 7 U/L Normal 0-31 [facility] Comment on above: Performed By: #### E LEC #### [facility] ([id number]) [address], [address] [place] [address] Anion gap [Moles/Vol] 7 mmol/L Normal 5-15 [facility] Comment on above: Performed By: #### E LEC #### [facility] ([id number]) [address], [address] [place] [address] AST [Catalytic activity/Vol] 11 U/L Normal 0-41 [facility] Comment on above: Performed By: #### E LEC #### [facility] ([id number]) [address] [place] [address] Bilirubin [Mass/Vol] 0.2 mg/dL Low 0.3-1.2 [facility] Comment on above: Performed By: #### E LEC #### [facility] ([id number]) [address] [place] [address] Calcium [Mass/Vol] 9.4 mg/dL Normal 8.5-10.5 [facility] Comment on above: Performed By: #### E LEC #### [facility] ([id number]) [address], [address] [place] [address] Chloride [Moles/Vol] 103 mmol/L Normal 98-109 [facility] Comment on above: Performed By: #### E LEC #### [facility] ([id number]) [address], [address] [place] [address] CO2 [Moles/Vol] 31 mmol/L Normal 22-32 [facility] Comment on above: Performed By: #### E LEC #### [facility] ([id number]) [address], [address] [place] [address] Creatinine [Mass/Vol] 0.97 mg/dL Normal 0.40-1.00 [facility] Comment on above: Result Comment: METH OD TRACEABLE TO IDMS STANDARD Performed By: #### E LEC #### [facility] ([id number]) [address], [address] [place] [address] GFR/1.73 sq M.predicted among non-blacks MDRD (S/P/Bld) [Vol rate/Area] 60 mL/min/{1.73_m2} Normal >59 [facility] Comment on above: Result Comment: Reported eGFR is based on the CKD-EPI 2020 equation that does not use a race coefficient. Performed By: #### E LEC #### [facility] ([id number]) [address], [address] [place] [address] Glucose [Mass/Vol] 86 mg/dL Normal 65-99 [facility] Comment on above: Performed By: #### E LEC #### [facility] ([id number]) [address], [address] [place] [address] Potassium [Moles/Vol] 4.6 mmol/L Normal 3.5-5.0 [facility] Comment on above: Performed By: #### E LEC #### [facility] ([id number]) [address], [address] [place] [address] Protein [Mass/Vol] 6.6 g/dL Normal 6.0-8.0 [facility] Comment on above: Performed By: #### E LEC #### [facility] ([id number]) [address], [address] [place] [address] Sodium [Moles/Vol] 141 mmol/L Normal 134-146 [facility] Comment on above: Performed By: #### E LEC #### [facility] ([id number]) [address], [address] [place] [address] Urea nitrogen [Mass/Vol] 31 mg/dL High 5-27 [facility] Comment on above: Performed By: #### E LEC #### [facility] ([id number]) [address], [address] [place] [address] FL SWALLOW MOTILITY FUNCTION on 02-23-2024 FL [...] León Parikh on 02/23/2024 8:44 AM Normal [facility] MAGNESIUMon 02-23-2024 Magnesium [Mass/Vol] 1.7 mg/dL Low 1.8-2.6 [facility] Comment on above: Performed By: #### E LEC #### [facility] ([id number]) [address] [place] [address] PHOSPHORUSon 02-23-2024 Phosphate [Mass/Vol] 3.8 mg/dL Normal 2.4-4.9 [facility] Comment on above: Performed By: #### E LEC #### [facility] ([id number]) [address] [place] [address] CBC AND AUTO DIFFon 02-22-20 Erythrocyte distribution width (RBC) [Ratio] 18.6 % High 11.5-15.0 [facility] Comment on above: Performed By: #### E LEC #### [facility] ([id number]) [address], [address] [place] [address] Hematocrit (Bld) [Volume fraction] 34.2 % Low 35-47 [facility] Comment on above: Performed By: #### E LEC #### [facility] ([id number]) [address] [place] [address] Hemoglobin (Bld) [Mass/Vol] 11.0 g/dL Low 11.7-15.5 [facility] Comment on above: Performed By: #### E LEC #### [facility] ([id number]) [address] [place] [address] HYPOCHROMIA 2+ Abnormal NONE [facility] Comment on above: Performed By: #### E LEC #### [facility] ([id number]) [address] [place] [address] Lymphocytes (Bld) [#/Vol] 2.6 10*3/uL Normal 1.0-3.5 [facility] Comment on above: Performed By: #### E LEC #### [facility] ([id number]) [address], [address] [place] [address] Lymphocytes/100 WBC (Bld) 17.0 % Normal [facility] Comment on above: Performed By: #### E LEC #### [facility] ([id number]) [address], [address] [place] [address] MCH (RBC) [Entitic mass] 24.5 pg Low 27-34 [facility] Comment on above: Performed By: #### E LEC #### [facility] ([id number]) [address], [address] [place] [address] MCHC (RBC) [Mass/Vol] 32.0 g/dL Normal 32-36 [facility] Comment on above: Performed By: #### E LEC #### [facility] ([id number]) [address] [place] [address] MCV (RBC) [Entitic vol] 76 fL Low 80-100 [facility] Comment on above: Performed By: #### E LEC #### [facility] ([id number]) [address], [address] [place] [address] Monocytes (Bld) [#/Vol] 0.6 10*3/uL Normal 0-0.9 [facility] Comment on above: Performed By: #### E LEC #### [facility] ([id number]) [address], [address] [place] [address] Monocytes/100 WBC (Bld) 4.0 % Normal [facility] Comment on above: Performed By: #### E LEC #### [facility] ([id number]) [address], [address] [place] [address] Neutrophils (Bld) [#/Vol] 12.0 10*3/uL High 1.5-6.6 [facility] Comment on above: Performed By: #### E LEC #### [facility] ([id number]) [address], [address] [place] [address] Platelet mean volume (Bld) [Entitic vol] 6.6 fL Low 7-12 [facility] Comment on above: Performed By: #### E LEC #### [facility] ([id number]) [address] [place] [address] Platelets (Bld) [#/Vol] 444 10*3/uL Normal 150-450 [facility] Comment on above: Performed By: #### E LEC #### [facility] ([id number]) [address] [place] [address] RBC COUNT 4.47 X10E12/L Normal 3.80-5.20 [facility] Comment on above: Performed By: #### E LEC #### [facility] ([id number]) [address], [address] [place] [address] SEG NEUTROPHIL 79.0 % Normal [facility] Comment on above: Performed By: #### E LEC #### [facility] ([id number]) [address] [place] [address] WBC (Bld) [#/Vol] 15.2 10*3/uL High 4.0-11.0 [facility] Comment on above: Performed By: #### E LEC #### [facility] ([id number]) [address], [address] [place] [address] COMPREHENSIVE METABOLIC PANE Harsha 02-22-2024 Albumin [Mass/Vol] 2.9 g/dL Low 3.2-5.3 [facility] Comment on above: Performed By: #### E LEC #### [facility] ([id number]) [address] [place] [address] ALP [Catalytic activity/Vol] 80 U/L Normal 39-130 [facility] Comment on above: Performed By: #### E LEC #### [facility] ([id number]) [address], [address] [place] [address] ALT [Catalytic activity/Vol] 9 U/L Normal 0-31 [facility] Comment on above: Performed By: #### E LEC #### [facility] ([id number]) [address], [address] [place] [address] Anion gap [Moles/Vol] 8 mmol/L Normal 5-15 [facility] Comment on above: Performed By: #### E LEC #### [facility] ([id number]) [address] [place] [address] AST [Catalytic activity/Vol] 12 U/L Normal 0-41 [facility] Comment on above: Performed By: #### E LEC #### [facility] ([id number]) [address] [place] [address] Bilirubin [Mass/Vol] 0.2 mg/dL Low 0.3-1.2 [facility] Comment on above: Performed By: #### E LEC #### [facility] ([id number]) [address], [address] [place] [address] Calcium [Mass/Vol] 9.2 mg/dL Normal 8.5-10.5 [facility] Comment on above: Performed By: #### E LEC #### [facility] ([id number]) [address] [address] [place] [address] Chloride [Moles/Vol] 103 mmol/L Normal 98-109 [facility] Comment on above: Performed By: #### E LEC #### [facility] ([id number]) [address], [address] [place] [address] CO2 [Moles/Vol] 32 mmol/L Normal 22-32 [facility] Comment on above: Performed By: #### E LEC #### [facility] ([id number]) [address] [address] [place] [address] Creatinine [Mass/Vol] 0.94 mg/dL Normal 0.40-1.00 [facility] Comment on above: Result Comment: METH OD TRACEABLE TO IDMS STANDARD Performed By: #### E LEC #### [facility] ([id number]) [address] [place] [address] GFR/1.73 sq M.predicted among non-blacks MDRD (S/P/Bld) [Vol rate/Area] 62 mL/min/{1.73_m2} Normal >59 [facility] Comment on above: Result Comment: Reported eGFR is based on the CKD-EPI 2020 equation that does not use a race coefficient. Performed By: #### E LEC #### [facility] ([id number]) [address] [place] [address] Glucose [Mass/Vol] 128 mg/dL High 65-99 [facility] Comment on above: Performed By: #### E LEC #### [facility] ([id number]) [address], [address] [place] [address] Potassium [Moles/Vol] 4.2 mmol/L Normal 3.5-5.0 [facility] Comment on above: Performed By: #### E LEC #### [facility] ([id number]) [address], [address] [place] [address] Protein [Mass/Vol] 6.9 g/dL Normal 6.0-8.0 [facility] Comment on above: Performed By: #### E LEC #### [facility] ([id number]) [address] [place] [address] Sodium [Moles/Vol] 143 mmol/L Normal 134-146 [facility] Comment on above: Performed By: #### E LEC #### [facility] ([id number]) [address], [address] [place] [address] Urea nitrogen [Mass/Vol] 29 mg/dL High 5-27 [facility] Comment on above: Performed By: #### E LEC #### [facility] ([id number]) [address], [address] [place] [address] MAGNESIUMon 02-22-2024 Magnesium [Mass/Vol] 2.0 mg/dL Normal 1.8-2.6 [facility] Comment on above: Performed By: #### E LEC #### [facility] ([id number]) [address], [address] [place] [address] PHOSPHORUSon 02-22-2024 Phosphate [Mass/Vol] 3.3 mg/dL Normal 2.4-4.9 [facility] Comment on above: Performed By: #### E LEC #### [facility] ([id number]) [address] [place] [address] C DIFFICILE BY PCRon 024 C. difficile toxin genes [address]+probe Ql (Stl) TOXIGENIC C DIFF Negative (qualifier value) 027 NAP1 Negative (qualifier value) Normal PRNEG [facility] Comment on above: Performed By: #### E LEC #### [facility] ([id number]) [address] [place] [address] CBC AND AUTO DIFFon 02-21-20 24 ABSOLUTE BASOPHIL 0.0 X10E9/L Normal 0.0-0.2 [facility] Comment on above: Performed By: #### E LEC #### [facility] ([id number]) [address], [address] [place] [address] ABSOLUTE NEUTROPHIL 10.9 X10E9/L High 1.5-6.6 [facility] Comment on above: Performed By: #### E LEC #### [facility] ([id number]) [address], [address] [place] [address] Basophils/100 WBC (Bld) 0.2 % Normal [facility] Comment on above: Performed By: #### E LEC #### [facility] ([id number]) [address] [place] [address] Eosinophils (Bld) [#/Vol] 0.0 10*3/uL Normal 0.0-0.4 [facility] Comment on above: Performed By: #### E LEC #### [facility] ([id number]) [address], [address] [place] [address] Eosinophils/100 WBC (Bld) 0.0 % Normal [facility] Comment on above: Performed By: #### E LEC #### [facility] ([id number]) [address] [place] [address] Erythrocyte distribution width (RBC) [Ratio] 18.0 % High 11.5-15.0 [facility] Comment on above: Performed By: #### E LEC #### [facility] ([id number]) [address], [address] [place] [address] Hematocrit (Bld) [Volume fraction] 32.3 % Low 35-47 [facility] Comment on above: Performed By: #### E LEC #### [facility] ([id number]) [address] [place] [address] Hemoglobin (Bld) [Mass/Vol] 10.5 g/dL Low 11.7-15.5 [facility] Comment on above: Performed By: #### E LEC #### [facility] ([id number]) [address] [place] [address] Lymphocytes (Bld) [#/Vol] 2.1 10*3/uL Normal 1.0-3.5 [facility] Comment on above: Performed By: #### E LEC #### [facility] ([id number]) [address], [address] [place] [address] Lymphocytes/100 WBC (Bld) 14.7 % Normal [facility] Comment on above: Performed By: #### E LEC #### [facility] ([id number]) [address] [place] [address] MCH (RBC) [Entitic mass] 24.6 pg Low 27-34 [facility] Comment on above: Performed By: #### E LEC #### [facility] ([id number]) [address] [place] [address] MCHC (RBC) [Mass/Vol] 32.5 g/dL Normal 32-36 [facility] Comment on above: Performed By: #### E LEC #### [facility] ([id number]) [address], [address] [place] [address] MCV (RBC) [Entitic vol] 76 fL Low 80-100 [facility] Comment on above: Performed By: #### E LEC #### [facility] ([id number]) [address] [place] [address] Monocytes (Bld) [#/Vol] 1.3 10*3/uL High 0-0.9 [facility] Comment on above: Performed By: #### E LEC #### [facility] ([id number]) [address], [address] [place] [address] Monocytes/100 WBC (Bld) 9.2 % Normal [facility] Comment on above: Performed By: #### E LEC #### [facility] ([id number]) [address], [address] [place] [address] Neutrophils/100 WBC (Bld) 75.9 % Normal [facility] Comment on above: Performed By: #### E LEC #### [facility] ([id number]) [address] [place] [address] Platelet mean volume (Bld) [Entitic vol] 6.7 fL Low 7-12 [facility] Comment on above: Performed By: #### E LEC #### [facility] ([id number]) [address] [place] [address] Platelets (Bld) [#/Vol] 448 10*3/uL Normal 150-450 [facility] Comment on above: Performed By: #### E LEC #### [facility] ([id number]) [address] [place] [address] RBC COUNT 4.27 X10E12/L Normal 3.80-5.20 [facility] Comment on above: Performed By: #### E LEC #### [facility] ([id number]) [address], [address] [place] [address] WBC (Bld) [#/Vol] 14.4 10*3/uL High 4.0-11.0 [facility] Comment on above: Performed By: #### E LEC #### [facility] ([id number]) [address], [address] [place] [address] COMPREHENSIVE METABOLIC PANE Harsha 02-21-2024 Albumin [Mass/Vol] 2.9 g/dL Low 3.2-5.3 [facility] Comment on above: Performed By: #### E LEC #### [facility] ([id number]) [address], [address] [place] [address] ALP [Catalytic activity/Vol] 81 U/L Normal 39-130 [facility] Comment on above: Performed By: #### E LEC #### [facility] ([id number]) [address], [address] [place] [address] ALT [Catalytic activity/Vol] 4 U/L Normal 0-31 [facility] Comment on above: Performed By: #### E LEC #### [facility] ([id number]) [address] [place] [address] Anion gap [Moles/Vol] 7 mmol/L Normal 5-15 [facility] Comment on above: Performed By: #### E LEC #### [facility] ([id number]) [address], [address] [place] [address] AST [Catalytic activity/Vol] 9 U/L Normal 0-41 [facility] Comment on above: Performed By: #### E LEC #### [facility] ([id number]) [address], [address] [place] [address] Bilirubin [Mass/Vol] 0.2 mg/dL Low 0.3-1.2 [facility] Comment on above: Performed By: #### E LEC #### [facility] ([id number]) [address] [facility] [address] [place] [address] Calcium [Mass/Vol] 8.9 mg/dL Normal 8.5-10.5 [facility] Comment on above: Performed By: #### E LEC #### [facility] ([id number]) [address] [place] [address] Chloride [Moles/Vol] 102 mmol/L Normal 98-109 [facility] Comment on above: Performed By: #### E LEC #### [facility] ([id number]) [address] [address] CO2 [Moles/Vol] 34 mmol/L High 22-32 [facility] Comment on above: Performed By: #### E LEC #### [facility] ([id number]) [address] [address] Creatinine [Mass/Vol] 1.09 mg/dL High 0.40-1.00 [facility] Comment on above: Result Comment: METH OD TRACEABLE TO IDMS STANDARD Performed By: #### E LEC #### [facility] ([id number]) [address] [address] GFR/1.73 sq M.predicted among non-blacks MDRD (S/P/Bld) [Vol rate/Area] 52 mL/min/{1.73_m2} Low >59 [facility] Comment on above: Result Comment: Reported eGFR is based on the CKD-EPI 2020 equation that does not use a race coefficient. Performed By: #### E LEC #### [facility] ([id number]) [address] [address] [place] [address] Glucose [Mass/Vol] 150 mg/dL High 65-99 [facility] Comment on above: Performed By: #### E LEC #### [facility] ([id number]) [address] [place] [address] Potassium [Moles/Vol] 4.0 mmol/L Normal 3.5-5.0 [facility] Comment on above: Performed By: #### E LEC #### [facility] ([id number]) [address], [address] [place] [address] Protein [Mass/Vol] 6.8 g/dL Normal 6.0-8.0 [facility] Comment on above: Performed By: #### E LEC #### [facility] ([id number]) [address], [address] [place] [address] Sodium [Moles/Vol] 143 mmol/L Normal 134-146 [facility] Comment on above: Performed By: #### E LEC #### [facility] ([id number]) [address], [address] [place] [address] Urea nitrogen [Mass/Vol] 25 mg/dL Normal 5-27 [facility] Comment on above: Performed By: #### E LEC #### [facility] ([id number]) [address], [address] [place] [address] GI PANELon 02-21-2024 Gastrointestinal pathogens DNA and [...] SAPOVIRUS Not detected (qualifier value) Normal NDET [facility] Comment on above: Performed By: #### E LEC #### [facility] ([id number]) [address] [place] [address] MAGNESIUMon 02-21-2024 Magnesium [Mass/Vol] 2.4 mg/dL Normal 1.8-2.6 [facility] Comment on above: Performed By: #### E LEC #### [facility] ([id number]) [address] [place], [place] [address], [address] [place] [address] PHOSPHORUSon 02-21-2024 Phosphate [Mass/Vol] 3.7 mg/dL Normal 2.4-4.9 [facility] Comment on above: Performed By: #### E LEC #### [facility] ([id number]) [address] [place] [address], [address] [address] CBC AND AUTO DIFFon 25-20 24 ABSOLUTE BASOPHIL 0.0 X10E9/L Normal 0.0-0.2 [facility] Comment on above: Performed By: #### E LEC #### [facility] ([id number]) [address] [place] [address], [address] [place] [address] ABSOLUTE NEUTROPHIL 10.4 X10E9/L High 1.5-6.6 [facility] Comment on above: Performed By: #### E LEC #### [facility] ([id number]) [address] [place] [address], [address] [address] Basophils/100 WBC (Bld) 0.1 % Normal [facility] Comment on above: Performed By: #### E LEC #### [facility] ([id number]) [address], [address] [place] [address] Eosinophils (Bld) [#/Vol] 0.0 10*3/uL Normal 0.0-0.4 [facility] Comment on above: Performed By: #### E LEC #### [facility] ([id number]) [address], [address] [place] [address] Eosinophils/100 WBC (Bld) 0.0 % Normal [facility] Comment on above: Performed By: #### E LEC #### [facility] ([id number]) [address], [address] [place] [address] Erythrocyte distribution width (RBC) [Ratio] 18.1 % High 11.5-15.0 [facility] Comment on above: Performed By: #### E LEC #### [facility] ([id number]) [address], [address] [place] [address] Hematocrit (Bld) [Volume fraction] 33.6 % Low 35-47 [facility] Comment on above: Performed By: #### E LEC #### [facility] ([id number]) [address], [address] [place] [address] Hemoglobin (Bld) [Mass/Vol] 11.2 g/dL Low 11.7-15.5 [facility] Comment on above: Performed By: #### E LEC #### [facility] ([id number]) [address], [address] [place] [address] Lymphocytes (Bld) [#/Vol] 1.3 10*3/uL Normal 1.0-3.5 [facility] Comment on above: Performed By: #### E LEC #### [facility] ([id number]) [address], [address] [place] [address] Lymphocytes/100 WBC (Bld) 10.6 % Normal [facility] Comment on above: Performed By: #### E LEC #### [facility] ([id number]) [address], [address] [place] [address] MCH (RBC) [Entitic mass] 25.1 pg Low 27-34 [facility] Comment on above: Performed By: #### E LEC #### [facility] ([id number]) [address], [address] [place] [address] MCHC (RBC) [Mass/Vol] 33.3 g/dL Normal 32-36 [facility] Comment on above: Performed By: #### E LEC #### [facility] ([id number]) [address], [address] [place] [address] MCV (RBC) [Entitic vol] 76 fL Low 80-100 [facility] Comment on above: Performed By: #### E LEC #### [facility] ([id number]) [address], [address] [place] [address] Monocytes (Bld) [#/Vol] 0.5 10*3/uL Normal 0-0.9 [facility] Comment on above: Performed By: #### E LEC #### [facility] ([id number]) [address], [address] [place] [address] Monocytes/100 WBC (Bld) 3.7 % Normal [facility] Comment on above: Performed By: #### E LEC #### [facility] ([id number]) [address], [address] [place] [address] Neutrophils/100 WBC (Bld) 85.6 % Normal [facility] Comment on above: Performed By: #### E LEC #### [facility] ([id number]) [address], [address] [place] [address] Platelet mean volume (Bld) [Entitic vol] 6.9 fL Low 7-12 [facility] Comment on above: Performed By: #### E LEC #### [facility] ([id number]) [address], [address] [place] [address] Platelets (Bld) [#/Vol] 425 10*3/uL Normal 150-450 [facility] Comment on above: Performed By: #### E LEC #### [facility] ([id number]) [address], [address] [place] [address] RBC COUNT 4.45 X10E12/L Normal 3.80-5.20 [facility] Comment on above: Performed By: #### E LEC #### [facility] ([id number]) [address], [address] [place] [address] WBC (Bld) [#/Vol] 12.1 10*3/uL High 4.0-11.0 [facility] Comment on above: Performed By: #### E LEC #### [facility] ([id number]) [address], [address] [place] [address] COMPREHENSIVE METABOLIC PANE Harsha 02-20-2024 Albumin [Mass/Vol] 3.0 g/dL Low 3.2-5.3 [facility] Comment on above: Performed By: #### E LEC #### [facility] ([id number]) [address], [address] [place] [address] ALP [Catalytic activity/Vol] 81 U/L Normal 39-130 [facility] Comment on above: Performed By: #### E LEC #### [facility] ([id number]) [address], [address] [place] [address] ALT [Catalytic activity/Vol] U/L Normal 0-31 [facility] Comment on above: Performed By: #### E LEC #### [facility] ([id number]) [address], [address] [place] [address] Anion gap [Moles/Vol] 10 mmol/L Normal 5-15 [facility] [place] [facility] Comment on above: Performed By: #### E LEC #### [facility] ([id number]) [address], [address] [place] [address] AST [Catalytic activity/Vol] 9 U/L Normal 0-41 [facility] Comment on above: Performed By: #### E LEC #### [facility] ([id number]) [address], [address] [place] [address] Bilirubin [Mass/Vol] 0.2 mg/dL Low 0.3-1.2 [facility] Comment on above: Performed By: #### E LEC #### [facility] ([id number]) [address], [address] [place] [address] Calcium [Mass/Vol] 9.1 mg/dL Normal 8.5-10.5 [facility] Comment on above: Performed By: #### E LEC #### [facility] ([id number]) [address], [address] [place] [address] Chloride [Moles/Vol] 97 mmol/L Low 98-109 [facility] Comment on above: Performed By: #### E LEC #### [facility] ([id number]) [address], [address] [place] [address] CO2 [Moles/Vol] 33 mmol/L High 22-32 [facility] Comment on above: Performed By: #### E LEC #### [facility] ([id number]) [address], [address] [place] [address] Creatinine [Mass/Vol] 1.16 mg/dL High 0.40-1.00 [facility] Comment on above: Result Comment: METH OD TRACEABLE TO IDMS STANDARD Performed By: #### E LEC #### [facility] ([id number]) [address], [address] [place] [address] GFR/1.73 sq M.predicted among non-blacks MDRD (S/P/Bld) [Vol rate/Area] 48 mL/min/{1.73_m2} Low >59 [facility] Comment on above: Result Comment: Reported eGFR is based on the CKD-EPI 2020 equation that does not use a race coefficient. Performed By: #### E LEC #### [facility] ([id number]) [address], [address] [place] [address] Glucose [Mass/Vol] 171 mg/dL High 65-99 [facility] Comment on above: Performed By: #### E LEC #### [facility] ([id number]) [address] [address] [place] [address] Potassium [Moles/Vol] 3.6 mmol/L Normal 3.5-5.0 [facility] Comment on above: Performed By: #### E LEC #### [facility] ([id number]) [address], [address] [place] [address] Protein [Mass/Vol] 7.1 g/dL Normal 6.0-8.0 [facility] Comment on above: Performed By: #### E LEC #### [facility] ([id number]) [address], [address] [place] [address] Sodium [Moles/Vol] 140 mmol/L Normal 134-146 [facility] Comment on above: Performed By: #### E LEC #### [facility] ([id number]) [address], [address] [place] [address] Urea nitrogen [Mass/Vol] 16 mg/dL Normal 5-27 [facility] Comment on above: Performed By: #### E LEC #### [facility] ([id number]) [address], [address] [place] [address] MAGNESIUMon 02-20-2024 Magnesium [Mass/Vol] 2.8 mg/dL High 1.8-2.6 [facility] Comment on above: Performed By: #### E LEC #### [facility] ([id number]) [address], [address] [place] [address] Magnesium [Mass/Vol] 1.5 mg/dL Low 1.8-2.6 [facility] Comment on above: Performed By: #### E LEC #### [facility] ([id number]) [address], [address] [place] [address] PHOSPHORUSon 02-20-2024 Phosphate [Mass/Vol] 3.6 mg/dL Normal 2.4-4.9 [facility] Comment on above: Performed By: #### E LEC #### [facility] ([id number]) [address], [address] [place] [address] POTASSIUMon 02-20-2024 Potassium [Moles/Vol] 4.1 mmol/L Normal 3.5-5.0 [facility] Comment on above: Performed By: #### E LEC #### [facility] ([id number]) [address], [address] [place] [address] BASIC METABOLIC PANLon 02-18 Anion gap [Moles/Vol] 10 mmol/L Normal 5-15 [facility] Comment on above: Performed By: #### C SANTOSH MILLIGAN, , 2776-10 #### [facility] ([id number]) [address], [address] [place] [address] Calcium [Mass/Vol] 9.5 mg/dL Normal 8.5-10.5 [facility] Comment on above: Performed By: #### C SANTOSH MILLIGAN, , 2776-10 #### [facility] ([id number]) [address], [address] [place] [address] Chloride [Moles/Vol] 96 mmol/L Low 98-109 [facility] Comment on above: Performed By: #### C SANTOSH MILLIGAN, , 2776-10 #### [facility] ([id number]) [address], [address] [place] [address] CO2 [Moles/Vol] 32 mmol/L Normal 22-32 [facility] Comment on above: Performed By: #### C SRINI, SANTOSH, , 2776-10 #### [facility] ([id number]) [address], [address] [place] [address] Creatinine [Mass/Vol] 1.10 mg/dL High 0.40-1.00 [facility] Comment on above: Result Comment: METH OD TRACEABLE TO IDMS STANDARD Performed By: #### C SRINI [facility], , 2776-10 #### [facility] ([id number]) [address], [address] [address] GFR/1.73 sq M.predicted among non-blacks MDRD (S/P/Bld) [Vol rate/Area] 51 mL/min/{1.73_m2} Low >59 [facility] Comment on above: Result Comment: Reported eGFR is based on the CKD-EPI 2020 equation that does not use a race coefficient. Performed By: #### SANTOSH SALEEM, , 2776-10 #### [facility] ([id number]) [address], [address] [place] [address] Glucose [Mass/Vol] 131 mg/dL High 65-99 [facility] Comment on above: Performed By: #### C SRINI, SANTOSH, , 2776-10 #### [facility] ([id number]) [address], [address] [place] [address] Potassium [Moles/Vol] 3.9 mmol/L Normal 3.5-5.0 [facility] Comment on above: Performed By: #### SANTOSH SALEEM, , 2776-10 #### [facility] ([id number]) [address], [address] [place] [address] Sodium [Moles/Vol] 138 mmol/L Normal 134-146 [facility] Comment on above: Performed By: #### C SRINI, SANTOSH, , 2776-10 #### [facility] ([id number]) [address], [address] [place] [address] Urea nitrogen [Mass/Vol] 11 mg/dL Normal 5-27 [facility] Comment on above: Performed By: #### C SRINI, SANTOSH, , 2776-10 #### [facility] ([id number]) [address], [address] [place] [address] BLOOD CULTUREon 02-19-2024 Bacteria identified Aer cx Nom (Bld) SPECIMEN NOTES ONLY ANAEROBIC BOTTLE SENT CULTURE RESULTS NO GROWTH 5 DAYS Normal [facility] Comment on above: Performed By: #### E LEC #### [facility] ([id number]) [address], [address] [place] [address] Bacteria identified Aer cx Nom (Bld) CULTURE RESULTS NO GROWTH 5 DAYS Normal [facility] CBC AND AUTO DIFFon 02-19-20 ABSOLUTE BASOPHIL 0.0 X10E9/L Normal 0.0-0.2 [facility] Comment on above: Performed By: #### C SANTOSH MILLIGAN, , 2776-10 #### [facility] ([id number]) [address], [address] [place] [address] ABSOLUTE NEUTROPHIL 10.1 X10E9/L High 1.5-6.6 [facility] Comment on above: Performed By: #### C SRINI, SANTOSH, , 2776-10 #### [facility] ([id number]) [address], [address] [place] [address] Basophils/100 WBC (Bld) 0.3 % Normal [facility] Comment on above: Performed By: #### C SRINI, SANTOSH, , 2776-10 #### [facility] ([id number]) [address], [address] [place] [address] Eosinophils (Bld) [#/Vol] 0.2 10*3/uL Normal 0.0-0.4 [facility] Comment on above: Performed By: #### Timmy MILLIGAN, BMP, , 2776-10 #### [facility] ([id number]) [address], [address] [place] [address] Eosinophils/100 WBC (Bld) 1.3 % Normal [facility] Comment on above: Performed By: #### Timmy MILLIGAN, SANTOSH, , 2776-10 #### [facility] ([id number]) [address], [address] [place] [address] Erythrocyte distribution width (RBC) [Ratio] 18.1 % High 11.5-15.0 [facility] Comment on above: Performed By: #### SANTOSH SALEEM, , 2776-10 #### [facility] ([id number]) [address], [address] [place] [address] Hematocrit (Bld) [Volume fraction] 37.8 % Normal 35-47 [facility] Comment on above: Performed By: #### SANTOSH SALEEM, , 2776-10 #### [facility] ([id number]) [address], [address] [place] [address] Hemoglobin (Bld) [Mass/Vol] 12.1 g/dL Normal 11.7-15.5 [facility] Comment on above: Performed By: #### Timmy MILLIGAN, BMP, , 2776-10 #### [facility] ([id number]) [address], [address] [place] [address] Lymphocytes (Bld) [#/Vol] 2.5 10*3/uL Normal 1.0-3.5 [facility] Comment on above: Performed By: #### Timmy MILLIGAN [facility], , 2776-10 #### [facility] ([id number]) [address], [address] [place] [address] Lymphocytes/100 WBC (Bld) 17.9 % Normal [facility] Comment on above: Performed By: #### Timmy MILLIGAN [facility], , 2776-10 #### [facility] ([id number]) [address], [address] [place] [address] MCH (RBC) [Entitic mass] 24.4 pg Low 27-34 [facility] Comment on above: Performed By: #### Timmy MILLIGAN [facility], , 2776-10 #### [facility] ([id number]) [address], [address] [place] [address] MCHC (RBC) [Mass/Vol] 32.0 g/dL Normal 32-36 [facility] Comment on above: Performed By: #### Timmy MILLIGAN [facility], , 2776-10 #### [facility] ([id number]) [address], [address] [place] [address] MCV (RBC) [Entitic vol] 76 fL Low 80-100 [facility] Comment on above: Performed By: #### Timmy MILLIGAN [facility], , 2776-10 #### [facility] ([id number]) [address], [address] [place] [address] Monocytes (Bld) [#/Vol] 1.4 10*3/uL High 0-0.9 [facility] Comment on above: Performed By: #### SANTOSH SALEEM, , 2776-10 #### [facility] ([id number]) [address], [address] [place] [address] Monocytes/100 WBC (Bld) 9.9 % Normal [facility] Comment on above: Performed By: #### SANTOSH SALEEM, , 2776-10 #### [facility] ([id number]) [address], [facility] [address] [place] [address] Neutrophils/100 WBC (Bld) 70.6 % Normal [facility] Comment on above: Performed By: #### Timmy MILLIGAN, SANTOSH, , 2776-10 #### [facility] ([id number]) [address], [address] [place] [address] Platelet mean volume (Bld) [Entitic vol] 6.9 fL Low 7-12 [facility] Comment on above: Performed By: #### SANTOSH SALEEM, , 2776-10 #### [facility] ([id number]) [address], [address] [place] [address] Platelets (Bld) [#/Vol] 485 10*3/uL High 150-450 [facility] Comment on above: Performed By: #### Timmy MILLIGAN, SANTOSH, , 2776-10 #### [facility] ([id number]) [address], [address] [place] [address] RBC COUNT 4.95 X10E12/L Normal 3.80-5.20 [facility] Comment on above: Performed By: #### Timmy MILLIGAN, BMP, , 2776-10 #### [facility] ([id number]) [address], [address] [place] [address] WBC (Bld) [#/Vol] 14.2 10*3/uL High 4.0-11.0 [facility] Comment on above: Performed By: #### Timmy MILLIGAN, SANTOSH, , 2776-10 #### [facility] ([id number]) [address], [address] [place] [address] CT ABDOMEN AND PELVIS W CONT on [...] Lehman MD on 02/19/2024 4:54 PM Normal [facility] LEGIONELLA URINE AGon 2023 L. pneumophila Ag IA Ql (U) LEGIONELLA URINE AG Negative (qualifier value) NEGATIVE FOR L.PNEUMOPHILA SEROGROUP 1 ANTIGEN Normal [facility] Comment on above: Performed By: #### E LEC #### [facility] ([id number]) [address], [address] [place] [address] Lactate (P timmy) [Moles/Vol]o n 02-19-2024 LACTATE W/REFLEX 1.7 mmol/L Normal 0.4-2.0 [facility] Comment on above: Result Comment: Result did not trigger repeat Lactate, re-order if needed. Performed By: #### C SANTOSH MILLIGAN, , 1 #### [facility] ([id number]) [address], [address] [place] [address] MRSA PCR NASALon 02-19-2024 MRSA DNA [address]+probe Ql (Unsp spec) Negative Normal NEG [facility] Comment on above: Performed By: #### E LEC #### [facility] ([id number]) [address], [address] [place] [address] Natriuretic peptide B [Mass/ Vol]on 02-19-2024 Natriuretic peptide B (Bld) [Mass/Vol] 38 pg/mL Normal <100.0 [facility] Comment on above: Performed By: #### C SANTOSH MILLIGAN, , 2776-10 #### [facility] ([id number]) [address], [address] [place] [address] Nuclear Ab IA Ql (S)on 02-18 BRANDON Screen w/reflex Negative Normal NEG [facility] Comment on above: Result Comment: Testing performed using multiplex flow immunoassay. Eleven different antigens associated with systemic autoimmune diseases (dsDNA,Sm,Sm/DECORATIVE ENGRAVER APPRENTICE,DECORATIVE ENGRAVER APPRENTICE,Chromatin, SSA,SSB,Dacia-1,Scl70,Ribo P,Centromere B) are included in this screening test. Performed By: #### E LEC #### [facility] ([id number]) [address], [address] [place] [address] PROTIME AND INRon 02-19-2024 INR Coag (PPP) [Relative time] 1.1 {INR} Normal 0.8-1.1 [facility] Comment on above: Performed By: #### C SANTOSH MILLIGAN, , 2776-10 #### [facility] ([id number]) [address], [address] [place] [address] PT Coag (PPP) [Time] 13.1 s Normal 9.8-13.2 [facility] Comment on above: Performed By: #### C SRINI, SANTOSH, , 2776-10 #### [facility] ([id number]) [address], [address] [place] [address] Procalcitonin IA [Mass/Vol]o n 02-19-2024 PROCALCITONIN 0.10 ng/mL High <0.05 [facility] Comment on above: Result Comment: NOTE <0.50 ng/mL - Low risk of severe sepsis and/or septic shock. <2.00 ng/mL - Recommend retesting within 6-24 hours. >2.00 ng/mL - High risk of sepsis and/or septic shock. Performed By: #### E LEC #### [facility] ([id number]) [address], [address] [place] [address] Rheumatoid factor Nephelomet ry Qn (S)on 02-19-2024 RHEUMATOID FACTOR <10 Normal <20 [facility] Comment on above: Performed By: #### E LEC #### [facility] ([id number]) [address] [place] [address] S PNEUMONIAE AG Uon 02-19-20 24 S. pneumoniae Ag Ql (U) Negative Normal NEG [facility] Comment on above: Performed By: #### E LEC #### [facility] ([id number]) [address] [facility], [address] [place] [address] SARS/FLU A+B/RSV by NAAT/Mol itaularon 02-19-2024 SARS/FLU A+B/RSV by NAAT/Molecular FLU A [...] operators who are performing tests using either [employer] or [employer] systems and is limited to laboratories that [...] repeat. Fact Sheet for Healthcare Providers: https://www.fda.gov/media/ 075825/download Fact Sheet for Patients: https://www.fda.gov/media/ 029430/download Normal [facility] Comment on above: Performed By: #### E LEC #### [facility] ([id number]) [address], [address] [place] [address] STREP PCR THROATon S. pyogenes DNA [address]+probe Nom (Unsp spec) STREP PCR THROAT Negative (qualifier value) Streptococcus Group A NOT detected by nucleic acid amplification. Normal [facility] Comment on above: Performed By: #### E LEC #### [facility] ([id number]) [address], [address] [place] [address] Troponin I.cardiac High sens itivity method [Mass/Vol]on 02-19-2024 1 HOUR TROP I, HIGH SENSITIVITY 4 ng/L Normal <16 [facility] Comment on above: Performed By: #### E LEC #### [facility] ([id number]) [address], [address] [place] [address] TROPONIN I, HIGH SENSITIVITY 4 ng/L Normal <16 [facility] Comment on above: Performed By: #### C BC, [facility], [address]-2, 2777-1 #### [facility] ([id number]) [address], [address] [place] [address] URINE CULTUREon 02-19-2024 Bacteria identified Cx Nom [...] Interpretation NATALIA Status DAPTOMYCIN S F Susceptible [facility] Comment on above: Performed By: #### E LEC #### [facility] ([id number]) [address], [address] [place] [address] URN MACROSCOPIC NURon 2023 BILIRUBIN OLVIN Negative Normal NEG [facility] Comment on above: Performed By: #### E LEC #### [facility] ([id number]) [address] [place] [address] BLOOD/HGB OLVIN Small Abnormal NEG [facility] Comment on above: Performed By: #### E LEC #### [facility] ([id number]) [address] [place] [address] GLUCOSE OLVIN Negative Normal NEG [facility] Comment on above: Performed By: #### E LEC #### [facility] ([id number]) [address] [place] [address] KETONES OLVIN Negative Normal NEG [facility] Comment on above: Performed By: #### E LEC #### [facility] ([id number]) [address], [address] [place] [address] LEUKOCYTE ESTERASE OLVIN Small Abnormal NEG Pr [facility] Comment on above: Performed By: #### E LEC #### [facility] ([id number]) [address], [address] [place] [address] NITRITE OLVIN Negative Normal NEG [facility] Comment on above: Performed By: #### E LEC #### [facility] ([id number]) [address], [address] [place] [address] PH OLVIN 5.5 Normal 5.0-8.5 [facility] Comment on above: Performed By: #### E LEC #### [facility] ([id number]) [address], [address] [place] [address] PROTEIN OLVIN Negative Normal NEG [facility] Comment on above: Performed By: #### E LEC #### [facility] ([id number]) [address], [address] [place] [address] SPECIFIC GRAVITY OLVIN 1.015 Normal 1.003-1 .03 5 [facility] Comment on above: Performed By: #### E LEC #### [facility] ([id number]) [address], [address] [place] [address] UROBILINOGEN OLVIN 0.2 eu/dL Normal <1.1 [facility] Comment on above: Performed By: #### E LEC #### [facility] ([id number]) [address] [place] [address] VENOUS BLOOD GASon 4 GUNJAN'S TEST Normal [facility] Comment on above: Performed By: #### E LEC #### [facility] ([id number]) [address], [address] [place] [address] Base excess Calc (Bld) [Moles/Vol] 10.0 mmol/L High 0.0-2.0 [facility] Comment on above: Performed By: #### E LEC #### [facility] ([id number]) [address], [address] [place] [address] Body temperature 98.6 [degF] Normal 37.0 [facility] Comment on above: Performed By: #### E LEC #### [facility] ([id number]) [address], [address] [place] [address] HCO3 (Bld) [Moles/Vol] 34.7 mmol/L High 20.0-24.0 [facility] Comment on above: Performed By: #### E LEC #### [facility] ([id number]) [address] [place] [address] INSP. O2 CONC. 30 % Normal [facility] Comment on above: Performed By: #### E LEC #### [facility] ([id number]) [address], [address] [place] [address] Oxygen saturation in Blood 89.0 % Normal >80.0 [facility] Comment on above: Performed By: #### E LEC #### [facility] ([id number]) [address], [address] [place] [address] OXYGEN SOURCE NC Normal [facility] Comment on above: Performed By: #### E LEC #### [facility] ([id number]) [address], [address] [place] [address] PCO2, VENOUS 46.3 MMHG Normal 35-50 [facility] Comment on above: Performed By: #### E LEC #### [facility] ([id number]) [address], [address] [place] [address] PH, VENOUS 7.482 High 7.320-7.42 0 [facility] Comment on above: Performed By: #### E LEC #### [facility] ([id number]) [address], [address] [place] [address] PO2, VENOUS 53 MMHG High 30-50 [facility] Comment on above: Performed By: #### E LEC #### [facility] ([id number]) [address], [address] [place] [address] SAMPLE SITE N/A Normal [facility] Comment on above: Performed By: #### E LEC #### [facility] ([id number]) [address], [address] [place] [address] SAMPLE TYPE VENOUS Normal [facility] Comment on above: Performed By: #### E LEC #### [facility] ([id number]) [address], [address] [place] [address] XR CHEST 1 VWon 02-19-2024 XR CHEST [...] Hayes MD on 02/19/2024 3:46 PM Normal [facility] aPTT Coag (PPP) [Time]on aPTT Coag (Bld) [Time] 32 s Normal 26-37 [facility] Comment on above: Performed By: #### C BC, BMP, [address]-7, 2777-1 #### [facility] ([id number]) [address], [address] [place] [address] Basic Metabolic Panelon 01-27 Creatinine Clr Calc Pharmacy 50.21 Normal [facility] Comment on above: Result Comment: PERF ORMED BY: [place] [address] PATHOLOGIST WEB PRODUCTION ASSISTANT JORGE MURRELL M.D. Performed By: #### E SR, CBC, CMP, BNP #### [facility] [address] [place] [address] GFR/1.73 sq M.predicted MDRD (S/P/Bld) [Vol rate/Area] mL/min/{1.73_m2} Normal [facility] Comment on above: Performed By: #### E SR, CBC, CMP, BNP #### [facility] [address] [place], [place] [id number] [facility] Calcium [Mass/volume] in Ser um or PlasmaOrdered By: Lucho Grullon on 02-17-2024 Calcium [Mass/Vol] 8.5 mg/dL Low 8.6-10.3 [place] Comment on above: Performed By: #### E SR, CBC, CMP, BNP #### [facility] [address] Carbon dioxide, total [Moles /volume] in Serum or PlasmaOrdered By: Lucho Grullon on 02-17-2024 CO2 [Moles/Vol] 29.4 mmol/L Normal 21.0-31.0 [facility] Comment on above: Performed By: #### E SR, CBC, CMP, BNP #### [facility] [address] Chloride [Moles/volume] in S kaveh or PlasmaOrdered By: Lucho Grullon on 02-17-2024 Chloride [Moles/Vol] 103 mmol/L Normal 98-107 [facility] Comment on above: Performed By: #### E SR, CBC, CMP, BNP #### [facility] [address] [place] [address] Creatinine [Mass/volume] in Serum or PlasmaOrdered By: Lucho Grullon on 02-17-2024 Creatinine [Mass/Vol] 0.90 mg/dL Normal 0.60-1.20 [facility] Comment on above: Performed By: #### E SR, CBC, CMP, BNP #### [address] Erythrocyte distribution wid th [Ratio] by Automated countOrdered By: Lucho Grullon on 02-17-2024 Erythrocyte distribution width (RBC) [Ratio] 18.2 % High 11.9-15.3 [facility] Comment on above: Performed By: #### E SR, CBC, CMP, BNP #### [facility] [address] [place] [address] Erythrocytes [#/volume] in B lood by Automated countOrdered By: Lucho Grullon on 02-17-2024 RBC (Bld) [#/Vol] 4.25 10*6/uL Normal 3.60-5.00 [facility] Comment on above: Performed By: #### E SR, CBC, CMP, BNP #### [place] [id number] [place] Glucose [Mass/volume] in Ser um or PlasmaOrdered By: Juneharini Jaquelinsylvia on 02-17-2024 Glucose [Mass/Vol] 85 mg/dL Normal 70-100 [place] Comment on above: ADA recommended refe rence rangeRandom Glucose Reference Range is dependent on time and content of last meal. Glucose of more than 200 mg/dL in a nonstressed, ambulatory subject supports the diagnosis of Diabetes Mellitus. Result Comment: [place] Glucose Reference Range is dependent on time and content of last meal. Glucose of more than 200 mg/dL in a nonstressed, ambulatory subject supports the diagnosis of Diabetes Mellitus. ADA recommended reference range Performed By: #### E SR, CBC, CMP, BNP #### [address] Hematocrit [Volume Fraction] of Blood by Automated countOrdered By: Juneharini Génesismariza on 02-17-2024 Hematocrit (Bld) [Volume fraction] 32.8 % Low 34.0-46.4 [facility] Comment on above: Performed By: #### E SR, CBC, CMP, BNP #### [address] Hemoglobin [Mass/volume] in BloodOrdered By: Yaiamjames Jaquelinsylvia on 02-17-2024 Hemoglobin (Bld) [Mass/Vol] 10.6 g/dL Low 11.8-15.4 [facility] Comment on above: Performed By: #### E SR, CBC, CMP, BNP #### [address] Hemogram CBC Without Diffon 02-17-2024 Mean Corpuscular HGB Conc 32.3 g/dL Normal 32.0-35.0 [facility] Comment on above: Performed By: #### E SR, CBC, CMP, BNP #### [address] WBC (Bld) [#/Vol] 10.9 10*3/uL Normal 3.8-11.6 [facility] Comment on above: Performed By: #### E SR, CBC, CMP, BNP #### [facility] [address] Leukocytes [#/volume] correc juma for nucleated erythrocytes in Blood by Automated counOrdered By: Juneharini Génesismariza on 02-17-2024 WBC corrected for nucl RBC Auto (Bld) [#/Vol] 10.9 10*3/uL 3.8-11.6 [facility] MCH [Entitic mass] by Automa juma countOrdered By: Juneharini Génesismariza on 02-17-2024 MCH (RBC) [Entitic mass] 24.9 pg Normal 24.7-34.3 [facility] Comment on above: Performed By: #### E SR, CBC, CMP, BNP #### [facility] [address] [place] [address] MCHC Auto (RBC) [Mass/Vol]Or dered By: Lucho Génesismariza on 02-17-2024 MCHC (RBC) [Mass/Vol] 32.3 g/dL 32.0-35.0 [facility] MCV [Entitic volume] by Auto mated countOrdered By: Juneharini Génesismariza on 02-17-2024 MCV (RBC) [Entitic vol] 77.2 fL Low 80-100 [facility] Comment on above: Performed By: #### E SR, CBC, CMP, BNP #### [facility] [address] [place] [address] No Panel InformationOrdered By: Lucho Génesismariza on 02-17-2024 Estimated GFR (CKD-EPI) > 60.0 mL/Min [facility] Creatinine Clearance (Chem 50.21 [facility] Platelet mean volume [Entiti c volume] in Blood by Automated countOrdered By: Lucho Génesismariza on 02-17-2024 Platelet mean volume (Bld) [Entitic vol] 6.9 fL Normal 6.3-10.7 [facility] Comment on above: Result Comment: PERF ORMED BY: [place] [address] PATHOLOGIST WEB PRODUCTION ASSISTANT JIANLAN SUN M.D. Performed By: #### E SR, CBC, CMP, BNP #### [address] Platelets [#/volume] in Bloo d by Automated countOrdered By: Juneharini Génesismariza on 02-17-2024 Platelets (Bld) [#/Vol] 370 10*3/uL Normal 150-450 [facility] Comment on above: Performed By: #### E SR, CBC, CMP, BNP #### [address] Potassium [Moles/volume] in Serum or PlasmaOrdered By: Juneharini Génesismariza on 02-17-2024 Potassium [Moles/Vol] 4.2 mmol/L Normal 3.5-5.1 [facility] Comment on above: Performed By: #### E SR, CBC, CMP, BNP #### [address] Serum or plasma anion gap de terminationOrdered By: Juneharini Génesismariza on 02-17-2024 Anion gap [Moles/Vol] 10.8 mmol/L Normal 6.0-15.0 [facility] Comment on above: Performed By: #### E SR, CBC, CMP, BNP #### [address] Sodium [Moles/volume] in Ser um or PlasmaOrdered By: Juneharini Génesismariza on 02-17-2024 Sodium [Moles/Vol] 139 mmol/L Normal 136-145 [place] Comment on above: Performed By: #### E SR, CBC, CMP, BNP #### [place] [address] [place] Urea nitrogen [Mass/volume] in Serum or PlasmaOrdered By: Juneharini Génesissosylvia on 02-17-2024 Urea nitrogen [Mass/Vol] 8 mg/dL Normal 7-25 [facility] Comment on above: Performed By: #### E SR, CBC, CMP, BNP #### [place] [address] [place] Aerobic Cultureon 02-16-2024 Aerobic Culture Light Normal Respira tory Kimberly 2 Days Gram Stain Result 3+ White Blood Cells 1+ Epithelial Cells 2+ Gram Positive Cocci 1+ Yeast Like Elements PERFORMED BY: [place] [address] PATHOLOGIST WEB PRODUCTION ASSISTANT JORGE MURRELL M.D. Normal [facility] Comment on above: Performed By: #### E SR, CBC, CMP, BNP #### [address] Basic Metabolic Panelon 01-27 Anion gap [Moles/Vol] 9.6 mmol/L Normal 6.0-15.0 [facility] Comment on above: Performed By: #### E SR, CBC, CMP, BNP #### [address] Calcium [Mass/Vol] 8.5 mg/dL Low 8.6-10.3 [facility] Comment on above: Performed By: #### E SR, CBC, CMP, BNP #### [address] Chloride [Moles/Vol] 103 mmol/L Normal 98-107 [facility] Comment on above: Performed By: #### E SR, CBC, CMP, BNP #### [address] CO2 [Moles/Vol] 27.3 mmol/L Normal 21.0-31.0 [facility] Comment on above: Performed By: #### E SR, CBC, CMP, BNP #### [place] [address] [place] Creatinine [Mass/Vol] 0.92 mg/dL Normal 0.60-1.20 [facility] Comment on above: Performed By: #### E SR, CBC, CMP, BNP #### [address] Creatinine Clr Calc Pharmacy 47.75 Normal [facility] Comment on above: Result Comment: PERF ORMED BY: [place] [address] PATHOLOGIST WEB PRODUCTION ASSISTANT JORGE MURRELL M.D. Performed By: #### E SR, CBC, CMP, BNP #### [facility] [address] [place] [address] [place] GFR/1.73 sq M.predicted MDRD (S/P/Bld) [Vol rate/Area] mL/min/{1.73_m2} Normal [facility] Comment on above: Performed By: #### E SR, CBC, CMP, BNP #### [address] Glucose [Mass/Vol] 83 mg/dL Normal 70-100 [facility] Comment on above: Result Comment: [place] Glucose Reference Range is dependent on time and content of last meal. Glucose of more than 200 mg/dL in a nonstressed, ambulatory subject supports the diagnosis of Diabetes Mellitus. ADA recommended reference range Performed By: #### E SR, CBC, CMP, BNP #### [facility] [address] [place] [address] [place] Potassium [Moles/Vol] 3.9 mmol/L Normal 3.5-5.1 [facility] Comment on above: Performed By: #### E SR, CBC, CMP, BNP #### [facility] [address] [place] [address] [place] Sodium [Moles/Vol] 136 mmol/L Normal 136-145 [facility] Comment on above: Performed By: #### E SR, CBC, CMP, BNP #### [facility] [address] [place] [address] [place] Urea nitrogen [Mass/Vol] 9 mg/dL Normal 7-25 [facility] Comment on above: Performed By: #### E SR, CBC, CMP, BNP #### [facility] [address] Gram stain for investigation of transfusion reactionOrdered By: Lcuho Grullon on 02-16-2024 Microscopic observation Gram stain Nom (Unsp spec) 1 Day [facility] Hemogram CBC Without Diffon 02-16-2024 Erythrocyte distribution width (RBC) [Ratio] 18.3 % High 11.9-15.3 [facility] Comment on above: Performed By: #### E SR, CBC, CMP, BNP #### [address] Hematocrit (Bld) [Volume fraction] 33.8 % Low 34.0-46.4 [facility] Comment on above: Performed By: #### E SR, CBC, CMP, BNP #### [address] Hemoglobin (Bld) [Mass/Vol] 10.6 g/dL Low 11.8-15.4 [facility] Comment on above: Performed By: #### E SR, CBC, CMP, BNP #### [address] MCH (RBC) [Entitic mass] 24.1 pg Low 24.7-34.3 [facility] Comment on above: Performed By: #### E SR, CBC, CMP, BNP #### [address] MCV (RBC) [Entitic vol] 76.8 fL Low 80-100 [facility] Comment on above: Performed By: #### E SR, CBC, CMP, BNP #### [address] Mean Corpuscular HGB Conc 31.4 g/dL Low 32.0-35.0 [facility] Comment on above: Performed By: #### E SR, CBC, CMP, BNP #### [address] Platelet mean volume (Bld) [Entitic vol] 7.1 fL Normal 6.3-10.7 [facility] Comment on above: Result Comment: PERF ORMED BY: [place] [address] PATHOLOGIST WEB PRODUCTION ASSISTANT JORGE MURRELL M.D. Performed By: #### E SR, CBC, CMP, BNP #### [address] Platelets (Bld) [#/Vol] 373 10*3/uL Normal 150-450 [facility] Comment on above: Performed By: #### E SR, CBC, CMP, BNP #### [address] RBC (Bld) [#/Vol] 4.41 10*6/uL Normal 3.60-5.00 [facility] Comment on above: Performed By: #### E SR, CBC, CMP, BNP #### [address] WBC (Bld) [#/Vol] 11.1 10*3/uL Normal 3.8-11.6 [facility] Comment on above: Performed By: #### E SR, CBC, CMP, BNP #### [address] Basic Metabolic Panelon 04-2 0-2023 Anion gap [Moles/Vol] 9.8 mmol/L Normal 6.0-15.0 [facility] Comment on above: Performed By: #### E SR, CBC, CMP, BNP #### [address] Calcium [Mass/Vol] 8.4 mg/dL Low 8.6-10.3 [facility] Comment on above: Performed By: #### E SR, CBC, CMP, BNP #### [address] Chloride [Moles/Vol] 103 mmol/L Normal 98-107 [facility] Comment on above: Performed By: #### E SR, CBC, CMP, BNP #### [address] CO2 [Moles/Vol] 28.7 mmol/L Normal 21.0-31.0 [facility] Comment on above: Performed By: #### E SR, CBC, CMP, BNP #### [address] Creatinine [Mass/Vol] 1.16 mg/dL Normal 0.60-1.20 [facility] Comment on above: Performed By: #### E SR, CBC, CMP, BNP #### [facility] [address] [place] [address] [place] Creatinine Clr Calc Pharmacy 37.75 Normal [facility] Comment on above: Performed By: #### E SR, CBC, CMP, BNP #### [facility] [address] [place] [address] [place] GFR/1.73 sq M.predicted MDRD (S/P/Bld) [Vol rate/Area] 48.257 mL/min/{1.73_m2} Normal [facility] Comment on above: Performed By: #### E SR, CBC, CMP, BNP #### [address] Glucose [Mass/Vol] 79 mg/dL Normal 70-100 [facility] Comment on above: Result Comment: [facility] Glucose Reference Range is dependent on time and content of last meal. Glucose of more than 200 mg/dL in a nonstressed, ambulatory subject supports the diagnosis of Diabetes Mellitus. ADA recommended reference range Performed By: #### E SR, CBC, CMP, BNP #### [facility] [address] Potassium [Moles/Vol] 3.5 mmol/L Normal 3.5-5.1 [facility] Comment on above: Performed By: #### E SR, CBC, CMP, BNP #### [facility] [address] Sodium [Moles/Vol] 138 mmol/L Normal 136-145 [facility] Comment on above: Performed By: #### E SR, CBC, CMP, BNP #### [facility] [address] Urea nitrogen [Mass/Vol] 14 mg/dL Normal 7-25 [facility] Comment on above: Performed By: #### E SR, CBC, CMP, BNP #### [facility] [address] Clostridioides difficile tox in B tcdB gene [Presence] in Stool by [address] with probe deteOrdered By: Lucho Grullon on 04-20-2024 C. difficile toxin B tcdB gene ELIZ[address]ETH+probe Ql (Stl) Negative Negative [facility] Comment on above: Testing performed by RT-PCR Clostridium Difficileon 01-27 Clostridium Difficile Negative Normal Negative [facility] Comment on above: Order Comment: > or = to 3 loose/watery stools in the last 24 HRS? Y Is patient on promotility agents or tube feeding? N Result Comment: Test ing performed by RT-PCR PERFORMED BY: [place] [address] PATHOLOGIST WEB PRODUCTION ASSISTANT JORGE MURRELL M.D. Performed By: #### E SR, CBC, CMP, BNP #### [address] Hemogram CBC Without Diffon 02-15-2024 Erythrocyte distribution width (RBC) [Ratio] 18.2 % High 11.9-15.3 [facility] Comment on above: Performed By: #### E SR, CBC, CMP, BNP #### [address] Hematocrit (Bld) [Volume fraction] 34.6 % Normal 34.0-46.4 [facility] Comment on above: Performed By: #### E SR, CBC, CMP, BNP #### [address] Hemoglobin (Bld) [Mass/Vol] 10.9 g/dL Low 11.8-15.4 [facility] Comment on above: Performed By: #### E SR, CBC, CMP, BNP #### [address] MCH (RBC) [Entitic mass] 24.2 pg Low 24.7-34.3 [facility] Comment on above: Performed By: #### E SR, CBC, CMP, BNP #### [address] MCV (RBC) [Entitic vol] 77.1 fL Low 80-100 [facility] Comment on above: Performed By: #### E SR, CBC, CMP, BNP #### [address] Mean Corpuscular HGB Conc 31.4 g/dL Low 32.0-35.0 [facility] Comment on above: Performed By: #### E SR, CBC, CMP, BNP #### [address] Platelet mean volume (Bld) [Entitic vol] 7.0 fL Normal 6.3-10.7 [facility] Comment on above: Result Comment: PERF ORMED BY: [place] [address] PATHOLOGIST WEB PRODUCTION ASSISTANT JORGE MURRELL M.D. Performed By: #### E SR, CBC, CMP, BNP #### [address] Platelets (Bld) [#/Vol] 333 10*3/uL Normal 150-450 [facility] Comment on above: Performed By: #### E SR, CBC, CMP, BNP #### [address] RBC (Bld) [#/Vol] 4.48 10*6/uL Normal 3.60-5.00 [facility] Comment on above: Performed By: #### E SR, CBC, CMP, BNP #### [address] WBC (Bld) [#/Vol] 10.0 10*3/uL Normal 3.8-11.6 [facility] Comment on above: Performed By: #### E SR, CBC, CMP, BNP #### [address] Lactoferrin, Stool WBCon Lactoferrin, Stool WBC LACTOFERRIN Positive for Fecal Lactoferrin Review patient history for chronic inflammatory conditions and status which can cause positive results unrelated to acute infectious disease. -- Reference range = Negative PERFORMED BY: [place] [address] PATHOLOGIST WEB PRODUCTION ASSISTANT JORGE MURRELL M.D. Normal [facility] Comment on above: Performed By: #### E SR, CBC, CMP, BNP #### [address] Magnesium [Mass/volume] in S kaveh or PlasmaOrdered By: Lucho Grullon on 02-15-2024 Magnesium [Mass/Vol] 1.5 mg/dL Low 1.9-2.7 [facility] Comment on above: Result Comment: PERF ORMED BY: [place] [address] PATHOLOGIST WEB PRODUCTION ASSISTANT JORGE MURRELL M.D. Performed By: #### E SR, CBC, CMP, BNP #### [address] Stool Cultureon 02-15-2024 Stool culture Negative for Shiga T oxin 1 Negative for Shiga Toxin 2 -- A negative Shiga Toxin result may occur if the antigen level in the specimen is below the detection limit of the assay. Stool culture results No Salmonella, Shigella, Campy or E. coli 0157:H7 Isolated PERFORMED BY: [place] [address] PATHOLOGIST WEB PRODUCTION ASSISTANT JORGE MURRELL M.D. Normal [facility] Comment on above: Performed By: #### E SR, CBC, CMP, BNP #### [place] [id number] [facility] Stool bacteria identificatio n by cultureOrdered By: Lucho Grullon on 02-15-2024 Bacteria identified Cx Nom (Stl) [facility] Stool lactoferrin detectionO rdered By: Lucho Grullon on 02-15-2024 Lactoferrin Ql (Stl) [facility] US venous duplex LE RTon US venous duplex LE RT [facility] [place] [address] [place] [address] Ultrasound Report Signed Patient: Gera Perdue MR#: [id number] : 1945 Acct:[id number] Age/Sex: 78 / F ADM Date: 02/14/24 Loc: Room: [address] [place] [address] Type: ADM IN Attending Dr: Lucho Grullon [...] Hilario Angulo MD02/15/2024 11:55 AM Dictation Location: [place] [address] Tech: Elizabeth Garcia Transcribed By: ANA 02/15/24 1155 Dictated By: Hilario Angulo MD 02/15/24 1154 Signed By: 02/15/24 1155 Normal [facility] Alanine aminotransferase [En zymatic activity/volume] in Serum or PlasmaOrdered By: Kadie Jones on 02-14-2024 ALT [Catalytic activity/Vol] 5 U/L Low 7-52 [facility] Comment on above: Performed By: #### S CAN CBC, LIPASE, CMP, HS TROP, MG, NORMA #### [facility] [address] [place] [address] [place] Albumin [Mass/volume] in Ser um or Plasma by Bromocresol green (BCG) dye binding methoOrdered By: Kadie Bullimore on 02-14-2024 Albumin BCG dye [Mass/Vol] 3.7 g/dL 3.5-5.7 [facility] Alkaline phosphatase [Enzyma tic activity/volume] in Serum or PlasmaOrdered By: Akdie Bullimore on 02-14-2024 ALP [Catalytic activity/Vol] 75 U/L Normal 34-104 [facility] Comment on above: Performed By: #### S CAN CBC, LIPASE, CMP, HS TROP, MG, NORMA #### [facility] [address] [place] [address] [place] Amylase [Enzymatic activity/ volume] in Serum or PlasmaOrdered By: Kadie Bullimore on 02-14-2024 Amylase [Catalytic activity/Vol] 10 U/L Low 29-103 [facility] Comment on above: Performed By: #### S CAN CBC, LIPASE, CMP, HS TROP, MG, NORMA #### [facility] [address] Aspartate aminotransferase [ Enzymatic activity/volume] in Serum or PlasmaOrdered By: Kadie Bullimore on 02-14-2024 AST [Catalytic activity/Vol] 11 U/L Low 13-39 [facility] Comment on above: Performed By: #### S CAN CBC, LIPASE, CMP, HS TROP, MG, NORMA #### [facility] [address] Automated basophil %Ordered By: Kadie Hustonore on 02-14-2024 Basophils/100 WBC (Bld) 0.9 % Normal . [facility] Comment on above: Performed By: #### S CAN CBC, LIPASE, CMP, HS TROP, MG, NORMA #### [facility] [address] [place] [address] [place] Automated basophil countOrde red By: Kadie Abhilashimore on 02-14-2024 Basophils (Bld) [#/Vol] 0.1 10*3/uL Normal 0.0-0.2 [facility] Comment on above: Result Comment: PERF ORMED BY: [place] [address] PATHOLOGIST WEB PRODUCTION ASSISTANT JORGE MURRELL M.D. Performed By: #### S CAN CBC, LIPASE, CMP, HS TROP, MG, NORMA #### [facility] [address] Automated blood monocyte cou ntOrdered By: Kadie Abhilashimore on 02-14-2024 Monocytes (Bld) [#/Vol] 1.7 10*3/uL High 0.0-0.8 [facility] Comment on above: Performed By: #### S CAN CBC, LIPASE, CMP, HS TROP, MG, NORMA #### [facility] [address] [place] [address] Automated eosinophil %Ordere d By: Kadie Betzaidaore on 02-14-2024 Eosinophils/100 WBC (Bld) 0.4 % Normal . [facility] Comment on above: Performed By: #### S CAN CBC, LIPASE, CMP, HS TROP, MG, NORMA #### [facility] [address] [place] [address] Automated eosinophil countOr dered By: Kadie Jones on 02-14-2024 Eosinophils (Bld) [#/Vol] 0.0 10*3/uL Normal 0.0-0.45 [facility] Comment on above: Performed By: #### S CAN CBC, LIPASE, CMP, HS TROP, MG, NORMA #### [facility] [address] [place] [address] Automated erythrocytes count in urine sediment (number/area)Ordered By: Kadie Abhilashimore on 02-14-2024 RBC Auto (Urine sed) [#/Area] 0-1 [HPF] 0-4 [facility] Automated leukocytes count i n urine sediment (number/area)Ordered By: Kadie Bullimore on 02-14-2024 WBC Auto (Urine sed) [#/Area] 50-100 [HPF] 0-4 [facility] Automated monocyte %Ordered By: Kadie Jones on 02-14-2024 Monocytes/100 WBC (Bld) 12.3 % Normal . [facility] Comment on above: Performed By: #### S CAN CBC, LIPASE, CMP, HS TROP, MG, NORMA #### [facility] [address] Automated neutrophil %Ordere d By: Kadie Jones on 02-14-2024 Neutrophils/100 WBC (Bld) 62.7 % Normal . [facility] Comment on above: Performed By: #### S CAN CBC, LIPASE, CMP, HS TROP, MG, NORMA #### [facility] [address] Automated urine color determ inationOrdered By: Kadie Jones on 02-14-2024 Color (U) Dark yellow Critically abnormal Yellow [facility] Comment on above: Order Comment: Name Collection Type:: Straight Catheter Performed By: #### E SR, CBC, CMP, BNP #### [facility] [address] BNP ser/plasOrdered By: Bianca Jones on 02-14-2024 Natriuretic peptide B (Bld) [Mass/Vol] 29.0 pg/mL Normal 5-100 [facility] Comment on above: Result Comment: PERF ORMED BY: [place] [address] PATHOLOGIST WEB PRODUCTION ASSISTANT JORGE MURRELL M.D. Performed By: #### E SR, CBC, CMP, BNP #### [address] Bilirubin Test strip Ql (U)O rdered By: Kadie Jones on 02-14-2024 Bilirubin Ql (U) Negative Negative [facility] Bilirubin.total [Mass/volume ] in Serum or PlasmaOrdered By: Kadie Joens on 02-14-2024 Bilirubin [Mass/Vol] 0.5 mg/dL Normal 0.3-1.0 [facility] Comment on above: Performed By: #### S CAN CBC, LIPASE, CMP, HS TROP, MG, NORMA #### [address] Blood Cultureon 02-14-2024 Bacteria identified Cx Nom (Bld) NO GROWTH 5 DAYS PERFORMED BY: [place] [address] PATHOLOGIST WEB PRODUCTION ASSISTANT JORGE MURRELL M.D. Normal [facility] Comment on above: Performed By: #### E SR, CBC, CMP, BNP #### [address] Bacteria identified Cx Nom (Bld) NO GROWTH 5 DAYS PERFORMED BY: [place] [address] PATHOLOGIST WEB PRODUCTION ASSISTANT JORGE MURRELL M.D. Normal [facility] Comment on above: Performed By: #### E SR, CBC, CMP, BNP #### [address] COVID CepheidOrdered By: Abbi Jones on 02-14-2024 SARS-CoV-2 (COVID-19) Ab IA Ql Negative Negative [facility] Comment on above: This is a duplicate Cepheid Xpert Xpress CoV-2/Flu/RSV Plus RNA by RT-PCR result to be used for statistical tracking purpose only. SARS-CoV-2 (COVID-19) RNA ELIZABETH+probe Ql (Unsp spec) [facility] COVID-19 / Flu A/B / [...] or Cepheid Disclaimer revoked sooner. PERFORMED BY: [place] [address] PATHOLOGIST WEB PRODUCTION ASSISTANT JORGE MURRELL M.D. Normal [facility] Comment on above: Performed By: #### E SR, CBC, CMP, BNP #### [address] abdomen pelvis w zach CT abdomen pelvis w [facility] [place] [address] CT Scan Report Signed Patient: Gera Perdue MR#: [id number] : 1945 Acct:[id number] Age/Sex: 78 / F ADM Date: 02/14/24 Loc: ER Room: Type: [facility] ER Attending Dr: Copies to: CHIP [place]wood [...] Bhavesh Avendaño M.D.02/14/2024 2:21 PM Dictation Location: [place] [address] Transcribed By: ANA 02/14/24 1421 Dictated By: Bhavesh Avendaño II, MD 02/14/24 1411 Signed By: 02/14/24 1421 Normal [facility] Calcium [Mass/volume] in Ser um or PlasmaOrdered By: Kadie Jones on 02-14-2024 Calcium [Mass/Vol] 9.5 mg/dL Normal 8.6-10.3 [place] Comment on above: Performed By: #### S CAN CBC, LIPASE, CMP, HS TROP, MG, NORMA #### [facility] [address] Carbon dioxide, total [Moles /volume] in Serum or PlasmaOrdered By: Kadie Jones on 02-14-2024 CO2 [Moles/Vol] 30.8 mmol/L Normal 21.0-31.0 [facility] Comment on above: Performed By: #### S CAN CBC, LIPASE, CMP, HS TROP, MG, NORMA #### [facility] [address] Cepheid COVID PCR Negativeon 02-14-2024 SARS-CoV-2 (COVID-19) RNA ELIZABETH+probe Ql (Unsp spec) Negative Normal Negative [facility] Comment on above: Result Comment: This is a duplicate Cepheid Xpert Xpress CoV-2/Flu/RSV Plus RNA by RT-PCR result to be used for statistical tracking purpose only. PERFORMED BY: [place] [address] PATHOLOGIST WEB PRODUCTION ASSISTANT JORGE MURRELL M.D. Performed By: #### E SR, CBC, CMP, BNP #### [address] Chloride [Moles/volume] in S kaveh or PlasmaOrdered By: Kadie Jones on 02-14-2024 Chloride [Moles/Vol] 97 mmol/L Low 98-107 [facility] Comment on above: Performed By: #### S CAN CBC, LIPASE, CMP, HS TROP, MG, NORMA #### [address] Comprehensive Metabolic Pane harsha 02-14-2024 Albumin [Mass/Vol] 3.7 g/dL Normal 3.5-5.7 [facility] Comment on above: Performed By: #### S CAN CBC, LIPASE, CMP, HS TROP, MG, NORMA #### [address] Creatinine Clr Calc Pharmacy 32.86 Normal [facility] Comment on above: Performed By: #### S CAN CBC, LIPASE, CMP, HS TROP, MG, NORMA #### [address] GFR/1.73 sq M.predicted MDRD (S/P/Bld) [Vol rate/Area] 41.325 mL/min/{1.73_m2} Normal [facility] Comment on above: Performed By: #### S CAN CBC, LIPASE, CMP, HS TROP, MG, NORMA #### [address] Creatinine [Mass/volume] in Serum or PlasmaOrdered By: Kadie Jones on 02-14-2024 Creatinine [Mass/Vol] 1.32 mg/dL High 0.60-1.20 [facility] Comment on above: Performed By: #### S CAN CBC, LIPASE, CMP, HS TROP, MG, NORMA #### [facility] [address] Dipstick and Microscopicon 0 02-14-2024 Appearance (U) Clear Normal Clear [facility] Comment on above: Order Comment: Name Collection Type:: Straight Catheter Performed By: #### E SR, CBC, CMP, BNP #### [facility] [address] [place] [address] [place] Bacteria,Urine 4+ High None Seen [facility] Comment on above: Order Comment: Name Collection Type:: Straight Catheter Performed By: #### E SR, CBC, CMP, BNP #### [facility] [address] [place] [address] [place] Bilirubin,Urine Negative Normal Negative [facility] Comment on above: Order Comment: Name Collection Type:: Straight Catheter Performed By: #### E SR, CBC, CMP, BNP #### [address] Glucose Ql (U) Normal Normal Normal [facility] Comment on above: Order Comment: Name Collection Type:: Straight Catheter Performed By: #### E SR, CBC, CMP, BNP #### [place] [address] [place] Hyaline Casts,Urine 9-19 High 0-8 [facility] Comment on above: Order Comment: Name Collection Type:: Straight Catheter Result Comment: PERF ORMED BY: [place] [address] PATHOLOGIST WEB PRODUCTION ASSISTANT JORGE MURRELL M.D. Performed By: #### E SR, CBC, CMP, BNP #### [address] Ketones Ql (U) Trace High Negative [facility] Comment on above: Order Comment: Name Collection Type:: Straight Catheter Performed By: #### E SR, CBC, CMP, BNP #### [address] Leukocyte esterase Test strip Ql (U) 3+ High Negative [facility] Comment on above: Order Comment: Name Collection Type:: Straight Catheter Performed By: #### E SR, CBC, CMP, BNP #### [place] [address] [place] Nitrite,Urine Positive High Negative [facility] Comment on above: Order Comment: Name Collection Type:: Straight Catheter Performed By: #### E SR, CBC, CMP, BNP #### [address] Occult Blood,Urine Trace High Negative [facility] Comment on above: Order Comment: Name Collection Type:: Straight Catheter Result Comment: PERF ORMED BY: [place] [address] PATHOLOGIST WEB PRODUCTION ASSISTANT JORGE MURRELL M.D. Performed By: #### E SR, CBC, CMP, BNP #### [address] RBC LM.HPF (Urine sed) [#/Area] 0 /[HPF] Normal 0-4 [facility] Comment on above: Order Comment: Name Collection Type:: Straight Catheter Performed By: #### E SR, CBC, CMP, BNP #### [address] Specificy [place],Urine 1.024 Normal 1.001-1.03 0 [facility] Comment on above: Order Comment: Name Collection Type:: Straight Catheter Performed By: #### E SR, CBC, CMP, BNP #### [address] Squamous Epithelial Cell,Urine None Seen Normal 0-2 [facility] Comment on above: Order Comment: Name Collection Type:: Straight Catheter Performed By: #### E SR, CBC, CMP, BNP #### [place] [address] [place] Urobilinogen,Urine Normal Normal Normal [facility] Comment on above: Order Comment: Name Collection Type:: Straight Catheter Performed By: #### E SR, CBC, CMP, BNP #### [place] [address] [place] WBC,Urine 50-100 High 0-4 [facility] Comment on above: Order Comment: Name Collection Type:: Straight Catheter Performed By: #### E SR, CBC, CMP, BNP #### [facility] [address] ECG 12 lead ECGon 02-14-2024 ECG 12 lead ECG [facility] [place] [address] [place] [address] Electrocardiograph Report Signed Patient: Gera Perdue MR#: [id number] : 1945 Acct:[id number] Age/Sex: 78 / F ADM Date: 02/14/24 Loc: ER Room: Type: [facility] ER Attending Dr: Ordering Provider: CHIP Greenwood [...] was found Confirmed by MARSHALL DOMINGUEZ DO ([id number]) on 02/14/2024 3:23:36 PM Referred By: Electronically Signed By:MARSHALL DOMINGUEZ DO Transcribed By: MUS Signed By Marshall Dominguez DO 02/13 1523 Normal [facility] Erythrocyte distribution wid th [Ratio] by Automated countOrdered By: Kadie Jones on 02-14-2024 Erythrocyte distribution width (RBC) [Ratio] 18.4 % High 11.9-15.3 [facility] Comment on above: Performed By: #### S CAN CBC, LIPASE, CMP, HS TROP, MG, NORMA #### [facility] [address] Erythrocytes [#/volume] in B lood by Automated countOrdered By: Kadie Jones on 02-14-2024 RBC (Bld) [#/Vol] 5.04 10*6/uL High 3.60-5.00 [facility] Comment on above: Performed By: #### S CAN CBC, LIPASE, CMP, HS TROP, MG, NORMA #### [facility] [address] Glucose [Mass/volume] in Ser um or PlasmaOrdered By: Kadie Jones on 02-14-2024 Glucose [Mass/Vol] 85 mg/dL Normal 70-100 [place] Comment on above: ADA recommended refe rence rangeRandom Glucose Reference Range is dependent on time and content of last meal. Glucose of more than 200 mg/dL in a nonstressed, ambulatory subject supports the diagnosis of Diabetes Mellitus. Result Comment: [place] om Glucose Reference Range is dependent on time and content of last meal. Glucose of more than 200 mg/dL in a nonstressed, ambulatory subject supports the diagnosis of Diabetes Mellitus. ADA recommended reference range Performed By: #### S CAN CBC, LIPASE, CMP, HS TROP, MG, NORMA #### [facility] [address] Hematocrit [Volume Fraction] of Blood by Automated countOrdered By: Kadie Jones on 02-14-2024 Hematocrit (Bld) [Volume fraction] 38.5 % Normal 34.0-46.4 [facility] Comment on above: Performed By: #### S CAN CBC, LIPASE, CMP, HS TROP, MG, NORMA #### [facility] [address] Hemoglobin [Mass/volume] in BloodOrdered By: Kadie Jones on 02-14-2024 Hemoglobin (Bld) [Mass/Vol] 12.2 g/dL Normal 11.8-15.4 [facility] Comment on above: Performed By: #### S CAN CBC, LIPASE, CMP, HS TROP, MG, NORMA #### [facility] [address] Ketones Auto test strip (U) [Mass/Vol]Ordered By: Kadie Jones on 02-14-2024 Ketones (U) [Mass/Vol] Trace Negative [facility] - UrinalysisOrder ed By: Kadie Jones on 02-14-2024 Hyaline casts LM Ql (Urine sed) 9 [LPF] 0-8 [facility] Lactate [Moles/volume] in Se rum or PlasmaOrdered By: Kadie Jones on 02-14-2024 Lactate [Moles/Vol] 0.8 mmol/L Normal 0.5-2.2 [facility] Comment on above: Result Comment: PERF ORMED BY: [place] [address] PATHOLOGIST WEB PRODUCTION ASSISTANT JORGE MURRELL M.D. Performed By: #### E SR, CBC, CMP, BNP #### [facility] [address] [place] [address] [place] Leukocytes [#/volume] correc juma for nucleated erythrocytes in Blood by Automated counOrdered By: Kadieruslan Jones on 02-14-2024 WBC corrected for nucl RBC Auto (Bld) [#/Vol] 13.6 10*3/uL 3.8-11.6 [facility] Leukocytes [#/volume] in Blo od by Automated countOrdered By: Kadie Jones on 02-14-2024 WBC (Bld) [#/Vol] 13.6 10*3/uL High 3.8-11.6 [facility] Comment on above: Performed By: #### S CAN CBC, LIPASE, CMP, HS TROP, MG, NORMA #### [facility] [address] [place] [address] [place] Lipase [Enzymatic activity/v olume] in Serum or PlasmaOrdered By: Kadie Jones on 02-14-2024 Lipase [Catalytic activity/Vol] 6.0 U/L Low 11.0-82.0 [facility] Comment on above: Result Comment: PERF ORMED BY: [facility] [address] [place] [address] PATHOLOGIST WEB PRODUCTION ASSISTANT JORGE MURRELL M.D. Performed By: #### S CAN CBC, LIPASE, CMP, HS TROP, MG, NORMA #### [facility] [address] [place] [address] [place] Lymphocytes [#/volume] in Bl ood by Automated countOrdered By: Kadie Jones on 02-14-2024 Lymphocytes (Bld) [#/Vol] 3.2 10*3/uL Normal 1.00-4.8 [facility] Comment on above: Performed By: #### S CAN CBC, LIPASE, CMP, HS TROP, MG, NORMA #### [facility] [address] Lymphocytes/100 leukocytes i n Blood by Automated countOrdered By: Kadie Jones on 02-14-2024 Lymphocytes/100 WBC (Bld) 23.7 % Normal . [facility] Comment on above: Performed By: #### S CAN CBC, LIPASE, CMP, HS TROP, MG, NORMA #### [address] MCH [Entitic mass] by Automa juma countOrdered By: Kadie Jones on 02-14-2024 MCH (RBC) [Entitic mass] 24.3 pg Low 24.7-34.3 [facility] Comment on above: Performed By: #### S CAN CBC, LIPASE, CMP, HS TROP, MG, NORMA #### [address] MCHC Auto (RBC) [Mass/Vol]Or dered By: Kadie Jones on 02-14-2024 MCHC (RBC) [Mass/Vol] 31.8 g/dL 32.0-35.0 [facility] MCV [Entitic volume] by Auto mated countOrdered By: Kadie Jones on 02-14-2024 MCV (RBC) [Entitic vol] 76.4 fL Low 80-100 [facility] Comment on above: Performed By: #### S CAN CBC, LIPASE, CMP, HS TROP, MG, NORMA #### [facility] [address] [place] [address] Magnesium [Mass/volume] in S kaveh or PlasmaOrdered By: Kadie Hungimore on 02-14-2024 Magnesium [Mass/Vol] 1.1 mg/dL Low 1.9-2.7 [facility] Comment on above: Performed By: #### S CAN CBC, LIPASE, CMP, HS TROP, MG, NORMA #### [facility] [address] [place] [address] [place] Monocyte distribution width [Entitic volume] in Blood by AutomatedOrdered By: Kadie Jones on 02-14-2024 Monocyte distribution width Auto (Bld) [Entitic vol] 25.16 % 0.00-20.00 [facility] Comment on above: For adults in ED, MD W > 20.0 may be associated with a higher risk of sepsis during the first 12 hrs of hospital admission Neutrophils [#/volume] in Bl ood by Automated countOrdered By: Kadie Jones on 02-14-2024 Neutrophils (Bld) [#/Vol] 8.5 10*3/uL High 1.8-7.7 [facility] Comment on above: Performed By: #### S CAN CBC, LIPASE, CMP, HS TROP, MG, NORMA #### [facility] [address] Nitrite Test strip Ql (U)Ord ered By: Kadie Jones on 02-14-2024 Nitrite Ql (U) Positive Negative [facility] No Panel InformationOrdered By: Kadie Jones on 02-14-2024 Estimated GFR (CKD-EPI) 41.325 mL/Min [facility] Creatinine Clearance (Chem 32.86 [facility] Nucleated erythrocytes [Pres ence] in Blood by Automated countOrdered By: Kadie Jones on 02-14-2024 Nucleated RBC Auto Ql (Bld) 0.1 /100{WBC} 0-0.5 [facility] Platelet adequacy [Presence] in Blood by Light microscopyOrdered By: Kadie Jones on 02-14-2024 Platelets LM Ql (Bld) Normal Normal [facility] Platelet mean volume [Entiti c volume] in Blood by Automated countOrdered By: Kadie Jones on 02-14-2024 Platelet mean volume (Bld) [Entitic vol] 7.0 fL Normal 6.3-10.7 [facility] Comment on above: Performed By: #### S CAN CBC, LIPASE, CMP, HS TROP, MG, NORMA #### [facility] [address] [place] [address] Platelet morphology finding [Identifier] in BloodOrdered By: Kadie Jones on 02-14-2024 Platelet morphology finding Nom (Bld) Normal Normal [facility] Platelets [#/volume] in Bloo d by Automated countOrdered By: Kadie Jones on 02-14-2024 Platelets (Bld) [#/Vol] 448 10*3/uL Normal 150-450 [facility] Comment on above: Performed By: #### S CAN CBC, LIPASE, CMP, HS TROP, MG, NORMA #### [address] Potassium [Moles/volume] in Serum or PlasmaOrdered By: Kadie Jones on 02-14-2024 Potassium [Moles/Vol] 4.0 mmol/L Normal 3.5-5.1 [facility] Comment on above: Performed By: #### S CAN CBC, LIPASE, CMP, HS TROP, MG, NORMA #### [address] Protein [Mass/volume] in Ser um or PlasmaOrdered By: Kadie Jones on 02-14-2024 Protein [Mass/Vol] 7.9 g/dL Normal 6.4-8.9 [place] Comment on above: Performed By: #### S CAN CBC, LIPASE, CMP, HS TROP, MG, NORMA #### [address] RBC morphologyOrdered By: Jeannie Jones on 02-14-2024 RBC morphology finding Nom (Bld) Normal Normal Normal [facility] Comment on above: Performed By: #### S CAN CBC, LIPASE, CMP, HS TROP, MG, NORMA #### [address] Scan and CBCon 02-14-2024 Mean Corpuscular HGB Conc 31.8 g/dL Low 32.0-35.0 [facility] Comment on above: Performed By: #### S CAN CBC, LIPASE, CMP, HS TROP, MG, NORMA #### [address] Monocytes/100 WBC (Bld) 25.16 % High 0.00-20.00 [facility] Comment on above: Result Comment: For adults in ED, MDW > 20.0 may be associated with a higher risk of sepsis during the first 12 hrs of hospital admission Performed By: #### S CAN CBC, LIPASE, CMP, HS TROP, MG, NORMA #### [address] NRBC% 0.1 /100{WBC} Normal 0-0.5 [facility] Comment on above: Performed By: #### S CAN CBC, LIPASE, CMP, HS TROP, MG, NORMA #### [address] Platelet Estimate Normal Normal Normal [facility] Comment on above: Performed By: #### S CAN CBC, LIPASE, CMP, HS TROP, MG, NORMA #### [address] Platelet Morphology Normal Normal Normal [facility] Comment on above: Result Comment: PERF ORMED BY: [place] [address] PATHOLOGIST WEB PRODUCTION ASSISTANT JORGE MURRELL M.D. Performed By: #### S CAN CBC, LIPASE, CMP, HS TROP, MG, NORMA #### [address] Serum globulin measurement b y calculation (mass/volume)Ordered By: aKdie Jones on 02-14-2024 Globulin (S) [Mass/Vol] 4.2 g/dL Normal [facility] Comment on above: Performed By: #### S CAN CBC, LIPASE, CMP, HS TROP, MG, NORMA #### [address] Serum or plasma albumin/glob ulin mass ratioOrdered By: Kadie Jones on 02-14-2024 Albumin/Globulin [Mass ratio] 0.9 {ratio} Normal [facility] Comment on above: Performed By: #### S CAN CBC, LIPASE, CMP, HS TROP, MG, NORMA #### [facility] [address] Serum or plasma anion gap de terminationOrdered By: Kadie Karen on 02-14-2024 Anion gap [Moles/Vol] 14.2 mmol/L Normal 6.0-15.0 [facility] Comment on above: Performed By: #### S CAN CBC, LIPASE, CMP, HS TROP, MG, NORMA #### [address] Sodium [Moles/volume] in Ser um or PlasmaOrdered By: Kadie Jones on 02-14-2024 Sodium [Moles/Vol] 138 mmol/L Normal 136-145 [place] Comment on above: Performed By: #### S CAN CBC, LIPASE, CMP, HS TROP, MG, NORMA #### [address] Specific gravity Auto test s trip (U) [Rel density]Ordered By: Kadie Karen on 02-14-2024 Specific gravity (U) [Rel density] 1.024 1.001-1.03 0 [facility] Squamous epithelial cells de tection in urine sediment by light microscopyOrdered By: Kadie Jones on 02-14-2024 Epithelial cells.squamous LM Ql (Urine sed) None seen [HPF] 0-2 [facility] Troponin I High Sensitivityo n 02-14-2024 Troponin I High Sensitivity 6.5 pg/mL Normal 0.0-15.0 [facility] Comment on above: Result Comment: PERF ORMED BY: [place] [address] PATHOLOGIST WEB PRODUCTION ASSISTANT JORGE MURRELL M.D. Performed By: #### S CAN CBC, LIPASE, CMP, HS TROP, MG, NORMA #### [address] Troponin I.cardiac [Mass/vol ume] in Serum or Plasma by Detection limit <= 0.01 ng/Ordered By: Kadie Jones on 02-14-2024 Troponin I.cardiac DL <= 0.01 ng/mL [Mass/Vol] 6.5 pg/mL 0.0-15.0 [facility] Urea nitrogen [Mass/volume] in Serum or PlasmaOrdered By: Kadie Jones on 02-14-2024 Urea nitrogen [Mass/Vol] 18 mg/dL Normal 7-25 [facility] Comment on above: Performed By: #### S CAN CBC, LIPASE, CMP, HS TROP, MG, NORMA #### [facility] [address] Urine Cultureon 02-14-2024 Bacteria identified Cx Nom (U) ORGANISM: Klebsiella pneumoniae (O:KLEPNE) [place] Count >100,000 Aerobic NATALIA Charge (NMIC56) SUSCEPTIBILITY [...] RESISTANT TO ALL B-LACTAM DRUGS. PERFORMED BY: [facility] [address] [place] [id number] PATHOLOGIST WEB PRODUCTION ASSISTANT JORGE MURRELL M.D. Normal [facility] Comment on above: Performed By: #### E SR, CBC, CMP, BNP #### [facility] [address] Urine bacteria detection by automated methodOrdered By: Kadie Jones on 02-14-2024 Bacteria Auto Ql (U) 4+ None Seen [facility] Urine clarity by refractomet ry automatedOrdered By: Kadie Jones on 02-14-2024 Clarity Refractometry automated (U) Clear Clear [facility] Urine culture routineOrdered By: Kadie Jones on 02-14-2024 Bacteria identified Cx Nom (U) Klebsiella pneumoniae [facility] Urine glucose measurement by automated test strip (mass/volume)Ordered By: Kadie Jones on 02-14-2024 Glucose Auto test strip (U) [Mass/Vol] Normal mg/dL Normal [facility] Urine hemoglobin detection b y automated test stripOrdered By: Kadie Jones on 02-14-2024 Hemoglobin Auto test strip Ql (U) Trace Negative [facility] Urine leukocyte esterase det ection by automated test stripOrdered By: Kadie Jones on 02-14-2024 Leukocyte esterase Auto test strip Ql (U) 3+ Negative [facility] Urine pH measurement by auto mated test stripOrdered By: Kadie Jones on 02-14-2024 pH (U) 5.5 [pH] Normal 5.0-9.0 [facility] Comment on above: Order Comment: Name Collection Type:: Straight Catheter Performed By: #### E SR, CBC, CMP, BNP #### [facility] [address] Urine protein measurement by automated test strip (mass/volume)Ordered By: Kadie Jones on 02-14-2024 Protein (U) [Mass/Vol] 30 mg/dL High Negative [facility] Comment on above: Order Comment: Name Collection Type:: Straight Catheter Performed By: #### E SR, CBC, CMP, BNP #### [facility] [address] [address] Urobilinogen Auto test strip (U) [Mass/Vol]Ordered By: Kadie Jones on 02-14-2024 Urobilinogen (U) [Mass/Vol] Normal mg/dL Normal [facility] XR chest 1V portableon 02-13 XR chest 1V portable [facility] Main [place] [address] [place] [address] XRay Report Signed Patient: Gera Perdue MR#: [id number] : 1945 Acct:[id number] Age/Sex: 78 / F ADM Date: 02/14/24 Loc: ER Room: Type: [facility] ER Attending Dr: Copies to: CHIP [place] [...] Bhavesh Avendaño M.D.02/14/2024 12:59 PM Dictation Location: [place] [address] Transcribed By: [facility] 02/14/24 1259 Dictated By: Bhavesh Avendaño II, MD 02/14/24 1257 Signed By: 02/14/24 1259 Normal [facility] C Urineon 02-01-2024 Bacteria identified Cx Nom (U) Microbiology PROCEDURE: Urine Culture [R1] SOURCE: U Random BODY SITE: COLLECTED DATE/TIME: 01/30/2024 14:39 EDT RECEIVED DATE/TIME: 01/30/2024 19:21 EDT START DATE/TIME: 01/30/2024 19:21 EDT FREE TEXT SOURCE: CHIP Ponce APRN, CHIP Ponce APRN, Renae Macdonald X FINAL REPORTS Final Report [] Verified Date/Time: 02/01/2024 09:31 EDT <10,000 cfu/ml Mixed skin contaminants Mixed kimberly (multiple species present) Performing Locations R1: This test was performed at: [facility], [address] [place] [address], [address]- , , [facility] Comment on above: Performed By: #### 2 [id number] #### [facility] [address] [place] [address] Formson 01-31-2024 Forms [id number] Normal [facility] Physician Referralon 024 Physician Referral [id number] Normal [facility] Ambulatory Visit Summaryon 0 01-30-2024 [...] Atherosclerosis of aorta Atherosclerotic heart disease of tribal coronary artery without angina pectoris Carotid stenosis [...] for choosing us for your care. Normal [facility] Patient Educationon 01-30-20 Patient Education [...] this condition includes: ? Antibiotic medicine. ? Cfkv-edg-tzijzdi medicines to treat discomfort. ? Drinking enough [...] these instructions at home: Medicines ? Take qycj-rxs-beyjjel and prescription medicines only as told by [...] Document Revie (more content not included)... Normal 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 Salas for incontinence. Micro UA done 12/30/23. She states she thought she seen Dr. Croft before (nothing on [employer]) she just knows it was a long time ago Started at [facility] September with UTI and was transferred to [facility] in October is when they told [...] with voice recognition artificial intelligence software, specifically [employer], [employer] and or [employer]. Substitutions may have occurred due to the [...] otherwise by our office. Rx sent to [facility] in [place]. - Start antibiotics today - Send urine for culture Ordered: cephalexin, 500 mg = 1 cap(s), Oral, q12hr, X 7 day(s), # 14 cap(s), Refills(s) 0, Pharmacy: [id number], 170, cm, 01/30/24 13:39:00 [...] reevaluate after procedure Ordered: Urine Culture Orders: [id number] Measure Post Void residual urine and/or bladder capacity by US- non-imaging Urnls Dip Stick Auto w/o Microscopy POC 95688 Urnls Dip Stick Auto w/o Microscopy POC 87926 Follow-up With When Contact Information CHIP Ponce APRN, Renae Delaney, FAM, URL Additional Instruction (more content not included)... Normal [facility] Comment on above: Result Comment: Elec tronically Signed By: CHIP Ponce APRN, Renae Delaney\.br\Date and Time Signed: 01/30/24 14:52 EDT TRANSTHORACIC ECHO (TTE) [facility] KARITEkamla 01-27-2024 TRANSTHORACIC ECHO (TTE) COMPLETE [facility] [address], [address], [place] [address] TRANSTHORACIC ECHOCARDIOGRAM REPORT Patient Name: GERA PERDUE Mary Physician: [id number] Seth Barnes MD, [facility] Study Date: 01/27/2024 Ordering Provider: [id number] JENNALAUREL DURÁNAN MRN/PID: [id number] Fellow: Nurse: Date of /Age: 1 1945 / 78 years Corporate Analyst: Inessa Roche RDCS, RVT Gender: F Additional Staff: Height: 162.56 cm Admit Date: Weight: 87.09 kg Admission Status: BSA / BMI: 1.92 m2 / 32.96 kg/m2 Department Location: [facility] Blood Pressure: 126 /78 mmHg Study Type: TRANSTHORACIC ECHO (TTE) COMPLETE Diagnosis/ICD: Shortness of breath-R06.02 Indication: History of PEA-09/2023, CAD, PTCA-04/2019, COPD, HTN, Hyperlipidemia, Tobacco Abuse, Hypoxemia, Sid, CKD-Stage III, Anemia CPT Codes: Echo Complete w Full Doppler-31577 Study Detail: The following Echo studies were [...] 1.1 m/s (0.6-0.9m/s) PV Max P.5 mmHg [id number] Seth Barnes MD, [facility] Electronically signed on 01/29/2024 at 7:26:59 PM Final Normal [facility] Alanine aminotransferase [En zymatic activity/volume] in Serum or PlasmaOrdered By: Jenna Engle on 01-06-2024 ALT [Catalytic activity/Vol] 19 U/L Normal 7-52 [facility] Comment on above: Performed By: #### E SR, CBC, CMP, BNP #### [facility] [address] Albumin [Mass/volume] in Ser um or Plasma by Bromocresol green (BCG) dye binding methoOrdered By: Jenna Engle on 01-06-2024 Albumin BCG dye [Mass/Vol] 3.9 g/dL 3.5-5.7 [facility] Alkaline phosphatase [Enzyma tic activity/volume] in Serum or PlasmaOrdered By: Jenna Engle on 01-06-2024 ALP [Catalytic activity/Vol] 66 U/L Normal 34-104 [facility] Comment on above: Result Comment: PERF ORMED BY: [place] [address] PATHOLOGIST WEB PRODUCTION ASSISTANT JORGE MURRELL M.D. Performed By: #### E SR, CBC, CMP, BNP #### [facility] [address] Aspartate aminotransferase [ Enzymatic activity/volume] in Serum or PlasmaOrdered By: Jenna Engle on 01-06-2024 AST [Catalytic activity/Vol] 22 U/L Normal 13-39 [facility] Comment on above: Performed By: #### E SR, CBC, CMP, BNP #### [address] Automated basophil %Ordered By: Jenna Engle on 01-06-2024 Basophils/100 WBC (Bld) 0.4 % Normal . [facility] Comment on above: Performed By: #### E SR, CBC, CMP, BNP #### [address] Automated basophil countOrde red By: Jenna Engle on 01-06-2024 Basophils (Bld) [#/Vol] 0.1 10*3/uL Normal 0.0-0.2 [facility] Comment on above: Performed By: #### E SR, CBC, CMP, BNP #### [address] Automated blood monocyte cou ntOrdered By: Jenna Engle on 01-06-2024 Monocytes (Bld) [#/Vol] 1.2 10*3/uL High 0.0-0.8 [facility] Comment on above: Performed By: #### E SR, CBC, CMP, BNP #### [address] Automated eosinophil %Ordere d By: Jenna Engle on 01-06-2024 Eosinophils/100 WBC (Bld) 0.9 % Normal . [facility] Comment on above: Performed By: #### E SR, CBC, CMP, BNP #### [address] Automated eosinophil countOr dered By: Jenna Engle on 01-06-2024 Eosinophils (Bld) [#/Vol] 0.1 10*3/uL Normal 0.0-0.45 [facility] Comment on above: Performed By: #### E SR, CBC, CMP, BNP #### [address] Automated monocyte %Ordered By: Jenna Engle on 01-06-2024 Monocytes/100 WBC (Bld) 8.7 % Normal . [facility] Comment on above: Performed By: #### E SR, CBC, CMP, BNP #### [facility] [address] [place] [address] Automated neutrophil %Ordere d By: Jenna Engle on 01-06-2024 Neutrophils/100 WBC (Bld) 59.8 % Normal . [facility] Comment on above: Performed By: #### E SR, CBC, CMP, BNP #### [address] BNP ser/plasOrdered By: Gisel Engle on 01-06-2024 Natriuretic peptide B (Bld) [Mass/Vol] 358.0 pg/mL High 5-100 [facility] Comment on above: Result Comment: PERF ORMED BY: [place] [address] PATHOLOGIST WEB PRODUCTION ASSISTANT JORGE MURRELL M.D. Performed By: #### E SR, CBC, CMP, BNP #### [address] Bilirubin.total [Mass/volume ] in Serum or PlasmaOrdered By: Jenna Engle on 01-06-2024 Bilirubin [Mass/Vol] 0.3 mg/dL Normal 0.3-1.0 [facility] Comment on above: Performed By: #### E SR, CBC, CMP, BNP #### [facility] [address] [place] [address] Calcium [Mass/volume] in Ser um or PlasmaOrdered By: Jenna Engle on 01-06-2024 Calcium [Mass/Vol] 9.5 mg/dL Normal 8.6-10.3 [place] Comment on above: Performed By: #### E SR, CBC, CMP, BNP #### [address] Carbon dioxide, total [Moles /volume] in Serum or PlasmaOrdered By: Jenna Engle on 01-06-2024 CO2 [Moles/Vol] 31.7 mmol/L High 21.0-31.0 [facility] Comment on above: Performed By: #### E SR, CBC, CMP, BNP #### [address] Chloride [Moles/volume] in S kaveh or PlasmaOrdered By: Jenna Engle on 01-06-2024 Chloride [Moles/Vol] 108 mmol/L High 98-107 [facility] Comment on above: Performed By: #### E SR, CBC, CMP, BNP #### [address] Complete Blood Count Auto Di ffon 01-06-2024 Mean Corpuscular HGB Conc 31.6 g/dL Low 32.0-35.0 [facility] Comment on above: Performed By: #### E SR, CBC, CMP, BNP #### [address] NRBC% 0.0 /100{WBC} Normal 0-0.5 [facility] Comment on above: Performed By: #### E SR, CBC, CMP, BNP #### [address] Comprehensive Metabolic Pane harsha 01-06-2024 Albumin [Mass/Vol] 3.9 g/dL Normal 3.5-5.7 [facility] Comment on above: Performed By: #### E SR, CBC, CMP, BNP #### [address] GFR/1.73 sq M.predicted MDRD (S/P/Bld) [Vol rate/Area] 47.277 mL/min/{1.73_m2} Normal [facility] Comment on above: Performed By: #### E SR, CBC, CMP, BNP #### [address] Creatinine [Mass/volume] in Serum or PlasmaOrdered By: Jenna Engle on 01-06-2024 Creatinine [Mass/Vol] 1.18 mg/dL Normal 0.60-1.20 [facility] Comment on above: Performed By: #### E SR, CBC, CMP, BNP #### [facility] [address] [place] [address] ECG 12 Leadon 01-06-2024 [facility] Work Phone: Normal sinus rhythm at 62 bpm PA interval 170 ms QRS duration 80 ms QTc 401 ms. [facility] Work Phone: [facility] Work Phone: Erythrocyte Sedimentation Ra jami 01-06-2024 ESR (Bld) [Velocity] 34 mm/h High 0-29 [facility] Comment on above: Result Comment: PERF ORMED BY: [place] [address] PATHOLOGIST WEB PRODUCTION ASSISTANT JORGE MURRELL M.D. Performed By: #### E SR, CBC, CMP, BNP #### [facility] [address] [place] [address] Erythrocyte distribution wid th [Ratio] by Automated countOrdered By: Jenna Engle on 01-06-2024 Erythrocyte distribution width (RBC) [Ratio] 20.0 % High 11.9-15.3 [facility] Comment on above: Performed By: #### E SR, CBC, CMP, BNP #### [facility] [address] [place] [address] Erythrocyte sedimentation ra te by Photometric methodOrdered By: Jenna Engle on 01-06-2024 ESR Photometric method (Bld) [Velocity] 34 mm/hr 0-29 [facility] Erythrocytes [#/volume] in B lood by Automated countOrdered By: Jenna Engle on 01-06-2024 RBC (Bld) [#/Vol] 4.54 10*6/uL Normal 3.60-5.00 [facility] Comment on above: Performed By: #### E SR, CBC, CMP, BNP #### [facility] [address] [place] [address] Glucose [Mass/volume] in Ser um or PlasmaOrdered By: Jenna Engle on 01-06-2024 Glucose [Mass/Vol] 85 mg/dL Normal 70-100 [place] Comment on above: ADA recommended refe rence rangeRandom Glucose Reference Range is dependent on time and content of last meal. Glucose of more than 200 mg/dL in a nonstressed, ambulatory subject supports the diagnosis of Diabetes Mellitus. Result Comment: [place] om Glucose Reference Range is dependent on time and content of last meal. Glucose of more than 200 mg/dL in a nonstressed, ambulatory subject supports the diagnosis of Diabetes Mellitus. ADA recommended reference range Performed By: #### E SR, CBC, CMP, BNP #### [facility] [address] [place] [address] Hematocrit [Volume Fraction] of Blood by Automated countOrdered By: Jenna Engle on 01-06-2024 Hematocrit (Bld) [Volume fraction] 35.7 % Normal 34.0-46.4 [facility] Comment on above: Performed By: #### E SR, CBC, CMP, BNP #### [facility] [address] [place] [address] Hemoglobin [Mass/volume] in BloodOrdered By: Jenna Engle on 01-06-2024 Hemoglobin (Bld) [Mass/Vol] 11.3 g/dL Low 11.8-15.4 [facility] Comment on above: Performed By: #### E SR, CBC, CMP, BNP #### [facility] [address] [place] [address] Leukocytes [#/volume] correc juma for nucleated erythrocytes in Blood by Automated counOrdered By: Jenna Engle on 01-06-2024 WBC corrected for nucl RBC Auto (Bld) [#/Vol] 14.2 10*3/uL 3.8-11.6 [facility] Leukocytes [#/volume] in Blo od by Automated countOrdered By: Jenna Engle on 01-06-2024 WBC (Bld) [#/Vol] 14.2 10*3/uL High 3.8-11.6 [facility] Comment on above: Performed By: #### E SR, CBC, CMP, BNP #### [facility] [address] [place] [address] Lymphocytes [#/volume] in Bl ood by Automated countOrdered By: Jenna Engle on 01-06-2024 Lymphocytes (Bld) [#/Vol] 4.3 10*3/uL Normal 1.00-4.8 [facility] Comment on above: Performed By: #### E SR, CBC, CMP, BNP #### [facility] [address] [place] [address] Lymphocytes/100 leukocytes i n Blood by Automated countOrdered By: Jenna Engle on 01-06-2024 Lymphocytes/100 WBC (Bld) 30.2 % Normal . [facility] Comment on above: Performed By: #### E SR, CBC, CMP, BNP #### [facility] [address] [place] [address] MCH [Entitic mass] by Automa juma countOrdered By: Jenna Engle on 01-06-2024 MCH (RBC) [Entitic mass] 24.9 pg Normal 24.7-34.3 [facility] Comment on above: Performed By: #### E SR, CBC, CMP, BNP #### [facility] [address] [place] [address] MCHC Auto (RBC) [Mass/Vol]Or dered By: Jenna Engle on 01-06-2024 MCHC (RBC) [Mass/Vol] 31.6 g/dL 32.0-35.0 [facility] MCV [Entitic volume] by Auto mated countOrdered By: Jenna Engle on 01-06-2024 MCV (RBC) [Entitic vol] 78.7 fL Low 80-100 [facility] Comment on above: Performed By: #### E SR, CBC, CMP, BNP #### [facility] [address] [place] [address] [place] Neutrophils [#/volume] in Bl ood by Automated countOrdered By: Jenna Engle on 01-06-2024 Neutrophils (Bld) [#/Vol] 8.5 10*3/uL High 1.8-7.7 [facility] Comment on above: Performed By: #### E SR, CBC, CMP, BNP #### [facility] [address] No Panel InformationOrdered By: Jenna Engle on 01-06-2024 Estimated GFR (CKD-EPI) 47.277 mL/Min [facility] Creatinine Clearance (Chem N/A [facility] Nucleated erythrocytes [Pres ence] in Blood by Automated countOrdered By: Jenna Engle on 01-06-2024 Nucleated RBC Auto Ql (Bld) 0.0 /100{WBC} 0-0.5 [facility] Platelet mean volume [Entiti c volume] in Blood by Automated countOrdered By: Jenna Engle on 01-06-2024 Platelet mean volume (Bld) [Entitic vol] 7.2 fL Normal 6.3-10.7 [facility] Comment on above: Performed By: #### E SR, CBC, CMP, BNP #### [facility] [address] [place] [address] [place] Platelets [#/volume] in Bloo d by Automated countOrdered By: Jenna Engle on 01-06-2024 Platelets (Bld) [#/Vol] 330 10*3/uL Normal 150-450 [facility] Comment on above: Performed By: #### E SR, CBC, CMP, BNP #### [facility] [address] [place] [address] [place] Potassium [Moles/volume] in Serum or PlasmaOrdered By: Jenna Engle on 01-06-2024 Potassium [Moles/Vol] 4.5 mmol/L Normal 3.5-5.1 [facility] Comment on above: Performed By: #### E SR, CBC, CMP, BNP #### [facility] [address] [place] [address] [place] Protein [Mass/volume] in Ser um or PlasmaOrdered By: Jenna Engle on 01-06-2024 Protein [Mass/Vol] 7.1 g/dL Normal 6.4-8.9 [place] Comment on above: Performed By: #### E SR, CBC, CMP, BNP #### [facility] [address] [place] [address] Serum globulin measurement b y calculation (mass/volume)Ordered By: Jenna Engle on 01-06-2024 Globulin (S) [Mass/Vol] 3.2 g/dL [facility] Comment on above: Performed By: #### E SR, CBC, CMP, BNP #### [facility] [address] [place] [address] Serum or plasma albumin/glob ulin mass ratioOrdered By: Jenna Engle on 01-06-2024 Albumin/Globulin [Mass ratio] 1.2 {ratio} [facility] Comment on above: Performed By: #### E SR, CBC, CMP, BNP #### [address] Serum or plasma anion gap de terminationOrdered By: Jenna Engle on 01-06-2024 Anion gap [Moles/Vol] 8.8 mmol/L Normal 6.0-15.0 [facility] Comment on above: Performed By: #### E SR, CBC, CMP, BNP #### [facility] [address] [place] [address] Sodium [Moles/volume] in Ser um or PlasmaOrdered By: Jenna Engle on 01-06-2024 Sodium [Moles/Vol] 144 mmol/L Normal 136-145 [place] Comment on above: Performed By: #### E SR, CBC, CMP, BNP #### [facility] [address] [place] [address] Urea nitrogen [Mass/volume] in Serum or PlasmaOrdered By: Jenna Engle on 01-06-2024 Urea nitrogen [Mass/Vol] 31 mg/dL High 7-25 [facility] Comment on above: Performed By: #### E SR, CBC, CMP, BNP #### [address] XR chest 2V*on 01-06-2024 XR chest 2V* [facility] [address] [place] [address] [place] [address] XRay Report Signed Patient: Gera Perdue MR#: [id number] : 1945 Acct:[id number] Age/Sex: 78 / F ADM Date: 01/06/24 Loc: XD Room: Type: [facility] Attending Dr: Jenna Engle MD Copies to: [...] Palma Jr., D.O.01/06/2024 4:08 PM Dictation Location: [place] [address] Transcribed By: [facility] 01/06/24 1608 Dictated By: Rodriguez Palma Jr, DO 01/06/24 1608 Signed By: 01/06/24 1608 Normal [facility] BASIC METABOLIC PANLon 10-23 Anion gap [Moles/Vol] 9 mmol/L Normal 5-15 [facility] Comment on above: Performed By: #### C SRINI, SANTOSH, , 2777-1 #### [facility] ([id number]) [address], [address] [place] [address] Calcium [Mass/Vol] 9.1 mg/dL Normal 8.5-10.5 [facility] Comment on above: Performed By: #### C BC, BMP, , 2777-1 #### [facility] ([id number]) [address], [address] [place] [address] Chloride [Moles/Vol] 102 mmol/L Normal 98-109 [facility] Comment on above: Performed By: #### C BC, BMP, , 2777-1 #### [facility] ([id number]) [address] [place] [address] CO2 [Moles/Vol] 26 mmol/L Normal 22-32 [facility] Comment on above: Performed By: #### SANTOSH SALEEM, , 2776-10 #### [facility] ([id number]) [address], [address] [place] [address] Creatinine [Mass/Vol] 1.08 mg/dL High 0.40-1.00 [facility] Comment on above: Result Comment: METH OD TRACEABLE TO IDMS STANDARD Performed By: #### C SANTOSH MILLIGAN, , 2776-10 #### [facility] ([id number]) [address] [address] [place] [address] GFR/1.73 sq M.predicted among non-blacks MDRD (S/P/Bld) [Vol rate/Area] 53 mL/min/{1.73_m2} Low >59 [facility] Comment on above: Result Comment: Reported eGFR is based on the CKD-EPI 2020 equation that does not use a race coefficient. Performed By: #### SANTOSH SALEEM, , 2776-10 #### [facility] ([id number]) [address] [place] [address] Glucose [Mass/Vol] 96 mg/dL Normal 65-99 [facility] Comment on above: Performed By: #### SANTOSH SALEEM, , 2776-10 #### [facility] ([id number]) [address] [address] [place] [address] Potassium [Moles/Vol] 4.4 mmol/L Normal 3.5-5.0 [facility] Comment on above: Performed By: #### SANTOSH SALEEM, , 2776-10 #### [facility] ([id number]) [address], [address] [place] [address] Sodium [Moles/Vol] 137 mmol/L Normal 134-146 [facility] Comment on above: Performed By: #### SANTOSH SALEEM, , 2776-10 #### [facility] ([id number]) [address], [address] [place] [address] Urea nitrogen [Mass/Vol] 13 mg/dL Normal 5-27 [facility] Comment on above: Performed By: #### SANTOSH SALEEM, , 2776-10 #### [facility] ([id number]) [address], [facility] [address] [place] [address] COMPLETE BLOOD COUNTon 10-23 Erythrocyte distribution width (RBC) [Ratio] 21.6 % High 11.5-15.0 [facility] Comment on above: Performed By: #### SANTOSH SALEEM, , 2776-10 #### [facility] ([id number]) [address], [facility] [address] [place] [address] Hematocrit (Bld) [Volume fraction] 25.8 % Low 35-47 [facility] Comment on above: Performed By: #### SANTOSH SALEEM, , 2776-10 #### [facility] ([id number]) [address], [facility] [address] [place] [address] Hemoglobin (Bld) [Mass/Vol] 8.5 g/dL Low 11.7-15.5 [facility] Comment on above: Performed By: #### Timmy MILLIGAN BMP, , 2776-10 #### [facility] ([id number]) [address], [facility] [address] [place] [address] MCH (RBC) [Entitic mass] 26.1 pg Low 27-34 [facility] Comment on above: Performed By: #### SANTOSH SALEEM, , 2776-10 #### [facility] ([id number]) [address], [address] [place] [address] MCHC (RBC) [Mass/Vol] 32.9 g/dL Normal 32-36 [facility] Comment on above: Performed By: #### SANTOSH SALEEM, , 2776-10 #### [facility] ([id number]) [address], [address] [place] [address] MCV (RBC) [Entitic vol] 79 fL Low 80-100 [facility] Comment on above: Performed By: #### SANTOSH SALEEM, , 2776-10 #### [facility] ([id number]) [address], [address] [place] [address] Platelet mean volume (Bld) [Entitic vol] 6.7 fL Low 7-12 [facility] Comment on above: Performed By: #### SANTOSH SALEEM, , 2776-10 #### [facility] ([id number]) [address], [address] [place] [address] Platelets (Bld) [#/Vol] 551 10*3/uL High 150-450 [facility] Comment on above: Performed By: #### SANTOSH SALEEM, , 2776-10 #### [facility] ([id number]) [address], [address] [place] [address] RBC COUNT 3.26 X10E12/L Low 3.80-5.20 [facility] Comment on above: Performed By: #### Timmy MILLIGAN, SANTOSH, , 2776-10 #### [facility] ([id number]) [address], [address] [place] [address] WBC (Bld) [#/Vol] 10.1 10*3/uL Normal 4.0-11.0 [facility] Comment on above: Performed By: #### Timmy MILLIGAN, SANTOSH, , 2776-10 #### [facility] ([id number]) [address], [address] [place] [address] Calcium.ionized (Bld) [Mass/ Vol]on 10-23-2023 IONIZED CALCIUM 4.9 mg/dL Normal 4.5-5.3 [facility] Comment on above: Performed By: #### SANTOSH SALEEM, , 2776-10 #### [facility] ([id number]) [address], [address] [place] [address] MAGNESIUMon 10-23-2023 Magnesium [Mass/Vol] 1.7 mg/dL Low 1.8-2.6 [facility] Comment on above: Performed By: #### SANTOSH SALEEM, , 2776-10 #### [facility] ([id number]) [address], [address] [place] [address] PHOSPHORUSon 10-23-2023 Phosphate [Mass/Vol] 5.1 mg/dL High 2.4-4.9 [facility] Comment on above: Performed By: #### SANTOSH SALEEM, , 2776-10 #### [facility] ([id number]) [address], [address] [place] [address] Rheumatoid factor Nephelomet ry Qn (S)on 10-23-2023 RHEUMATOID FACTOR <10 Normal <20 [facility] Comment on above: Performed By: #### SANTOSH SALEEM, , 2776-10 #### [facility] ([id number]) [address], [address] [place] [address] BASIC METABOLIC PANLon 10-22 Anion gap [Moles/Vol] 10 mmol/L Normal 5-15 [facility] Comment on above: Performed By: #### SANTOSH SALEEM, , 2776-10 #### [facility] ([id number]) [address], [address] [place] [address] Calcium [Mass/Vol] 8.8 mg/dL Normal 8.5-10.5 [facility] Comment on above: Performed By: #### C SANTOSH MILLIGAN, , 2776-10 #### [facility] ([id number]) [address], [address] [place] [address] Chloride [Moles/Vol] 104 mmol/L Normal 98-109 [facility] Comment on above: Performed By: #### SANTOSH SALEEM, , 2776-10 #### [facility] ([id number]) [address], [facility] [address] [place] [address] CO2 [Moles/Vol] 25 mmol/L Normal 22-32 [facility] Comment on above: Performed By: #### SANTOSH SALEEM, , 2776-10 #### [facility] ([id number]) [address], [address] [place] [address] Creatinine [Mass/Vol] 1.02 mg/dL High 0.40-1.00 [facility] Comment on above: Result Comment: METH OD TRACEABLE TO IDMS STANDARD Performed By: #### SANTOSH SALEEM, , 2776-10 #### [facility] ([id number]) [address], [address] [place] [address] GFR/1.73 sq M.predicted among non-blacks MDRD (S/P/Bld) [Vol rate/Area] 57 mL/min/{1.73_m2} Low >59 [facility] Comment on above: Result Comment: Reported eGFR is based on the CKD-EPI 2020 equation that does not use a race coefficient. Performed By: #### SANTOSH SALEEM, , 2776-10 #### [facility] ([id number]) [address], [address] [place] [address] Glucose [Mass/Vol] 86 mg/dL Normal 65-99 [facility] Comment on above: Performed By: #### C SRNII, [facility], , 2776-10 #### [facility] ([id number]) [address], [address] [place] [address] Potassium [Moles/Vol] 4.6 mmol/L Normal 3.5-5.0 [facility] Comment on above: Performed By: #### Timmy MILLIGAN, [facility], , 2776-10 #### [facility] ([id number]) [address], [address] [place] [address] Sodium [Moles/Vol] 139 mmol/L Normal 134-146 [facility] Comment on above: Performed By: #### Timmy MILLIGAN, [facility], , 2776-10 #### [facility] ([id number]) [address], [address] [place] [address] Urea nitrogen [Mass/Vol] 13 mg/dL Normal 5-27 [facility] Comment on above: Performed By: #### Timmy MILLIGAN, [facility], , 2776-10 #### [facility] ([id number]) [address], [address] [place] [address] COMPLETE BLOOD COUNTon 10-22 Erythrocyte distribution width (RBC) [Ratio] 22.2 % High 11.5-15.0 [facility] Comment on above: Performed By: #### SANTOSH SALEEM, , 2776-10 #### [facility] ([id number]) [address], [address] [place] [address] Hematocrit (Bld) [Volume fraction] 25.7 % Low 35-47 [facility] Comment on above: Performed By: #### Timmy MILLIGAN, BMP, , 2776-10 #### [facility] ([id number]) [address], [address] [place] [address] Hemoglobin (Bld) [Mass/Vol] 8.2 g/dL Low 11.7-15.5 [facility] Comment on above: Performed By: #### C SANTOSH MILLIGAN, , 2776-10 #### [facility] ([id number]) [address], [address] [place] [address] MCH (RBC) [Entitic mass] 26.2 pg Low 27-34 [facility] Comment on above: Performed By: #### Timmy MILLIGAN, SANTOSH, , 2776-10 #### [facility] ([id number]) [address], [address] [place] [address] MCHC (RBC) [Mass/Vol] 32.1 g/dL Normal 32-36 [facility] Comment on above: Performed By: #### SANTOSH SALEEM, , 2776-10 #### [facility] ([id number]) [address], [address] [place] [address] MCV (RBC) [Entitic vol] 82 fL Normal 80-100 [facility] Comment on above: Performed By: #### SANTOSH SALEEM, , 2776-10 #### [facility] ([id number]) [address], [address] [place] [address] Platelet mean volume (Bld) [Entitic vol] 6.7 fL Low 7-12 [facility] Comment on above: Performed By: #### Timmy MILLIGAN, SANTOSH, , 2776-10 #### [facility] ([id number]) [address], [address] [place] [address] Platelets (Bld) [#/Vol] 533 10*3/uL High 150-450 [facility] Comment on above: Performed By: #### SANTOSH SALEEM, , 2776-10 #### [facility] ([id number]) [address], [address] [place] [address] RBC COUNT 3.14 X10E12/L Low 3.80-5.20 [facility] Comment on above: Performed By: #### C SANTOSH MILLIGAN, , 2776-10 #### [facility] ([id number]) [address], [facility] [address] [place] [address] WBC (Bld) [#/Vol] 9.7 10*3/uL Normal 4.0-11.0 [facility] Comment on above: Performed By: #### SANTOSH SALEEM, , 2776-10 #### [facility] ([id number]) [address] [address] [place] [address] Calcium.ionized (Bld) [Mass/ Vol]on 10-22-2023 IONIZED CALCIUM 4.9 mg/dL Normal 4.5-5.3 [facility] Comment on above: Performed By: #### SANTOSH SALEEM, , 2776-10 #### [facility] ([id number]) [address] [address] [place] [address] Glucose Glucometer (BldC) [M ass/Vol]on 10-22-2023 Glucose [Mass/Vol] 97 mg/dL Normal 65-99 [facility] MAGNESIUMon 10-22-2023 Magnesium [Mass/Vol] 2.1 mg/dL Normal 1.8-2.6 [facility] Comment on above: Performed By: #### Timmy MILLIGAN, SANTOSH, , 2776-10 #### [facility] ([id number]) [address] [address] [place] [address] PHOSPHORUSon 10-22-2023 Phosphate [Mass/Vol] 4.9 mg/dL Normal 2.4-4.9 [facility] Comment on above: Performed By: #### Timmy MILLIGAN, SANTOSH, , 2776-10 #### [facility] ([id number]) [address] [address] [place] [address] BASIC METABOLIC PANLon 10-21 Anion gap [Moles/Vol] 7 mmol/L Normal 5-15 [facility] Comment on above: Performed By: #### Timmy MILLIGAN, SANTOSH, , 2776-10 ####[facility] ([id number])[address], [address], [place] [address] Calcium [Mass/Vol] 9.0 mg/dL Normal 8.5-10.5 [facility] Comment on above: Performed By: #### Timmy MILLIGAN, SANTOSH, , 2776-10 ####[facility] ([id number])[address], [address], [place] [address] Chloride [Moles/Vol] 104 mmol/L Normal 98-109 [facility] Comment on above: Performed By: #### Timmy MILLIGAN, SANTOSH, , 2776-10 ####[facility] ([id number])[address], [address], [place] [address] CO2 [Moles/Vol] 26 mmol/L Normal 22-32 [facility] Comment on above: Performed By: #### Timmy MILLIGAN, SANTOSH, , 2776-10 ####[facility] ([id number])[address], [address], [place] [address] Creatinine [Mass/Vol] 1.06 mg/dL High 0.40-1.00 [facility] Comment on above: Result Comment: METH OD TRACEABLE TO IDMS STANDARD Performed By: #### SANTOSH SALEEM, , 2776-10 ####[facility] ([id number])[address], [address], [place] [address] GFR/1.73 sq M.predicted among non-blacks MDRD (S/P/Bld) [Vol rate/Area] 54 mL/min/{1.73_m2} Low >59 [facility] Comment on above: Result Comment: Reported eGFR is based on the CKD-EPI 2020 equation that does not use a race coefficient. Performed By: #### C SRINI [facility], , 2776-10 ####[facility] ([id number])[address], [address], [place] [address] Glucose [Mass/Vol] 88 mg/dL Normal 65-99 [facility] Comment on above: Performed By: #### C SRINI, [facility], , 2776-10 ####[facility] ([id number])[address] [address] [address] Potassium [Moles/Vol] 4.5 mmol/L Normal 3.5-5.0 [facility] Comment on above: Performed By: #### C SRINI, [facility], , 2776-10 ####[facility] ([id number])[address] [address], [place] [address] Sodium [Moles/Vol] 137 mmol/L Normal 134-146 [facility] Comment on above: Performed By: #### Timmy MILLIGAN, [facility], , 2776-10 ####[facility] ([id number])[address] [address] [address] Urea nitrogen [Mass/Vol] 12 mg/dL Normal 5-27 [facility] Comment on above: Performed By: #### C SRINI, [facility], , 2776-10 ####[facility] ([id number])[address] [address] [address] COMPLETE BLOOD COUNTon 10-21 Erythrocyte distribution width (RBC) [Ratio] 22.0 % High 11.5-15.0 [facility] Comment on above: Performed By: #### C SRINI, [facility], , 2776-10 ####[facility] ([id number])[address] [address], [place] [address] Hematocrit (Bld) [Volume fraction] 26.3 % Low 35-47 [facility] Comment on above: Performed By: #### C SRINI, [facility], , 2776-10 ####[facility] ([id number])[address], [address], [place] [address] Hemoglobin (Bld) [Mass/Vol] 8.5 g/dL Low 11.7-15.5 [facility] Comment on above: Performed By: #### C SRINI, [facility], , 2776-10 ####[facility] ([id number])[address], [address], [place] [address] MCH (RBC) [Entitic mass] 26.2 pg Low 27-34 [facility] Comment on above: Performed By: #### Timmy MILLIGAN, [facility], , 2776-10 ####[facility] ([id number])[address], [place] [address] MCHC (RBC) [Mass/Vol] 32.4 g/dL Normal 32-36 [facility] Comment on above: Performed By: #### Timmy MILLIGAN, [facility], , 2776-10 ####[facility] ([id number])[address], [address] [place] [address], [place] [address] MCV (RBC) [Entitic vol] 81 fL Normal 80-100 [facility] Comment on above: Performed By: #### Timmy MILLIGAN, BMP, , 2776-10 ####[facility] ([id number])[address], [address], [place] [address] Platelet mean volume (Bld) [Entitic vol] 6.8 fL Low 7-12 [facility] Comment on above: Performed By: #### Timmy MILLIGAN, BMP, , 2776-10 ####[facility] ([id number])[address], [address] [place] [address] Platelets (Bld) [#/Vol] 611 10*3/uL High 150-450 [facility] Comment on above: Performed By: #### C BC, [facility], , 2776-10 ####[facility] ([id number])[address], [address], [place] [address] RBC COUNT 3.25 X10E12/L Low 3.80-5.20 [facility] Comment on above: Performed By: #### C BC, [facility], , 2776-10 ####[facility] ([id number])[address], [address] [place] [address] WBC (Bld) [#/Vol] 10.0 10*3/uL Normal 4.0-11.0 [facility] Comment on above: Performed By: #### C SRINI, [facility], , 2776-10 ####[facility] ([id number])[address], [address] [place] [address] CRP [Mass/Vol]on 10-21-2023 C REACTIVE PROTEIN 6.5 mg/dL High 0.000-0.7 4 4 [facility] Comment on above: Performed By: #### 3 8230-9 #### [facility] ([id number]) [address], [address] [place] [address] Calcium.ionized (Bld) [Mass/ Vol]on 10-21-2023 IONIZED CALCIUM 4.9 mg/dL Normal 4.5-5.3 [facility] Comment on above: Performed By: #### 3 8230-9 #### [facility] ([id number]) [address], [address] [place] [address] ESR Photometric method (Bld) [Velocity]on 10-21-2023 ESR, ERYTHROCYTE SEDIMENTATION RATE 74 mm/h High 0-30 [facility] Comment on above: Performed By: #### 3 8230-9 #### [facility] ([id number]) [address], [address] [place] [address] Glucose Glucometer (BldC) [M ass/Vol]on 10-21-2023 Glucose [Mass/Vol] 124 mg/dL High 65-99 [facility] Glucose [Mass/Vol] 135 mg/dL High 65-99 [facility] Glucose [Mass/Vol] 126 mg/dL High 65-99 [facility] Glucose [Mass/Vol] 91 mg/dL Normal 65-99 [facility] MAGNESIUMon 10-21-2023 Magnesium [Mass/Vol] 2.6 mg/dL Normal 1.8-2.6 [facility] Comment on above: Performed By: #### 3 8230-9 #### [facility] ([id number]) [address], [address] [place] [address] Magnesium [Mass/Vol] 1.9 mg/dL Normal 1.8-2.6 [facility] Comment on above: Performed By: #### C BC, [facility], [address]-2, 2777-1 ####[facility] ([id number])[address], [address], [place] [address] PHOSPHORUSon 10-21-2023 Phosphate [Mass/Vol] 4.3 mg/dL Normal 2.4-4.9 [facility] Comment on above: Performed By: #### 3 8230-9 #### [facility] ([id number]) [address], [address] [place] [address] XR WRIST LT MIN 3 VWSon 09-28 [...] Morin MD on 10/21/2023 10:28 AM Normal [facility] BASIC METABOLIC PANLon 10-20 Anion gap [Moles/Vol] 7 mmol/L Normal 5-15 [facility] Comment on above: Performed By: #### C SANTOSH MILLIGAN, , 2776-10 ####[facility] ([id number])[address], [address] [place] [address] Calcium [Mass/Vol] 8.6 mg/dL Normal 8.5-10.5 [facility] Comment on above: Performed By: #### SANTOSH SALEEM, , 2776-10 ####[facility] ([id number])[address], [address] [place] [address] Chloride [Moles/Vol] 107 mmol/L Normal 98-109 [facility] Comment on above: Performed By: #### SANTOSH SALEEM, , 2776-10 ####[facility] ([id number])[address], [address], [place] [address] CO2 [Moles/Vol] 25 mmol/L Normal 22-32 [facility] Comment on above: Performed By: #### SANTOSH ASLEEM, , 2776-10 ####[facility] ([id number])[address], [address], [place] [address] Creatinine [Mass/Vol] 1.16 mg/dL High 0.40-1.00 [facility] Comment on above: Result Comment: METH OD TRACEABLE TO IDMS STANDARD Performed By: #### C SANTOSH MILLIGAN, , 2776-10 ####[facility] ([id number])[address], [address] [place] [address] GFR/1.73 sq M.predicted among non-blacks MDRD (S/P/Bld) [Vol rate/Area] 49 mL/min/{1.73_m2} Low >59 [facility] Comment on above: Result Comment: Reported eGFR is based on the CKD-EPI 2020 equation that does not use a race coefficient. Performed By: #### C SANTOSH MILLIGAN, , 2776-10 ####[facility] ([id number])[address] [address], [place] [address] Glucose [Mass/Vol] 80 mg/dL Normal 65-99 [facility] Comment on above: Performed By: #### C SANTOSH MILLIGAN, , 2776-10 ####[facility] ([id number])[address] [address], [place] [address] Potassium [Moles/Vol] 4.6 mmol/L Normal 3.5-5.0 [facility] Comment on above: Performed By: #### Timmy MILLIGAN [facility], , 2776-10 ####[facility] ([id number])[address] [address], [place] [address] Sodium [Moles/Vol] 139 mmol/L Normal 134-146 [facility] Comment on above: Performed By: #### SANTOSH SALEEM, , 2776-10 ####[facility] ([id number])[address] [place] [address] Urea nitrogen [Mass/Vol] 12 mg/dL Normal 5-27 [facility] Comment on above: Performed By: #### SANTOSH SALEEM, , 2776-10 ####[facility] ([id number])[address] [address], [place] [address] COMPLETE BLOOD COUNTon 10-20 Erythrocyte distribution width (RBC) [Ratio] 22.5 % High 11.5-15.0 [facility] Comment on above: Performed By: #### C SRINI [facility], , 2776-10 ####[facility] ([id number])[address], [address] [place] [address] Hematocrit (Bld) [Volume fraction] 24.8 % Low 35-47 [facility] Comment on above: Performed By: #### C , [facility], , 2776-10 ####[facility] ([id number])[address], [address] [place] [address] Hemoglobin (Bld) [Mass/Vol] 8.1 g/dL Low 11.7-15.5 [facility] Comment on above: Performed By: #### C SRINI, [facility], , 2776-10 ####[facility] ([id number])[address] [address], [place] [address] MCH (RBC) [Entitic mass] 26.2 pg Low 27-34 [facility] Comment on above: Performed By: #### C SRINI, [facility], , 2776-10 ####[facility] ([id number])[address] [address], [place] [address] MCHC (RBC) [Mass/Vol] 32.4 g/dL Normal 32-36 [facility] Comment on above: Performed By: #### C SRINI, [facility], , 2776-10 ####[facility] ([id number])[address] [address] [place] [address] MCV (RBC) [Entitic vol] 81 fL Normal 80-100 [facility] Comment on above: Performed By: #### C BC, [facility], , 2776-10 ####[facility] ([id number])[address] [address] [place] [address] Platelet mean volume (Bld) [Entitic vol] 6.7 fL Low 7-12 [facility] Comment on above: Performed By: #### SANTOSH SALEEM, , 2776-10 ####[facility] ([id number])[address], [address] [place] [address] Platelets (Bld) [#/Vol] 554 10*3/uL High 150-450 [facility] Comment on above: Performed By: #### SANTOSH SALEEM, , 2776-10 ####[facility] ([id number])[address], [address] [place] [address] RBC COUNT 3.08 X10E12/L Low 3.80-5.20 [facility] Comment on above: Performed By: #### SANTOSH SALEEM, , 2776-10 ####[facility] ([id number])[address] [address] [place] [address] WBC (Bld) [#/Vol] 9.3 10*3/uL Normal 4.0-11.0 [facility] Comment on above: Performed By: #### SANTOSH SALEEM, , 2776-10 ####[facility] ([id number])[address], [address] [place] [address] Glucose Glucometer (BldC) [M ass/Vol]on 10-20-2023 Glucose [Mass/Vol] 108 mg/dL High 65-99 [facility] Glucose [Mass/Vol] 115 mg/dL High 65-99 [facility] Glucose [Mass/Vol] 140 mg/dL High 65-99 [facility] Glucose [Mass/Vol] 94 mg/dL Normal 65-99 [facility] MAGNESIUMon 10-20-2023 Magnesium [Mass/Vol] 1.7 mg/dL Low 1.8-2.6 [facility] Comment on above: Performed By: #### SANTOSH SALEEM, , 2776-10 ####[facility] ([id number])[address], [place] [address] PHOSPHORUSon 10-20-2023 Phosphate [Mass/Vol] 4.2 mg/dL Normal 2.4-4.9 [facility] Comment on above: Performed By: #### C SRINI, BMP, , 2776-10 ####[facility] ([id number])[address], [place] [address] BASIC METABOLIC PANLon 10-19 Anion gap [Moles/Vol] 8 mmol/L Normal 5-15 [facility] Comment on above: Performed By: #### C SRINI, SANTOSH, , 2776-10 ####[facility] ([id number])[address], [place] [address] Calcium [Mass/Vol] 8.3 mg/dL Low 8.5-10.5 [facility] Comment on above: Performed By: #### Timmy MILLIGAN, BMP, , 2776-10 ####[facility] ([id number])[address], [place] [address] Chloride [Moles/Vol] 107 mmol/L Normal 98-109 [facility] Comment on above: Performed By: #### SANTOSH SALEEM, , 2776-10 ####[facility] ([id number])[address], [place] [address] CO2 [Moles/Vol] 24 mmol/L Normal 22-32 [facility] Comment on above: Performed By: #### Timmy MILLIGAN, BMP, , 2776-10 ####[facility] ([id number])[address], [place] [address] Creatinine [Mass/Vol] 1.05 mg/dL High 0.40-1.00 [facility] Comment on above: Result Comment: METH OD TRACEABLE TO IDMS STANDARD Performed By: #### C SRINI BMP, , 2776-10 ####[facility] ([id number])[address] [address] GFR/1.73 sq M.predicted among non-blacks MDRD (S/P/Bld) [Vol rate/Area] 55 mL/min/{1.73_m2} Low >59 [facility] Comment on above: Result Comment: Reported eGFR is based on the CKD-EPI 2020 equation that does not use a race coefficient. Performed By: #### Timmy MILLIGAN, BMP, , 2776-10 ####[facility] ([id number])[address] [address] Glucose [Mass/Vol] 82 mg/dL Normal 65-99 [facility] Comment on above: Performed By: #### Timmy MILLIGAN, [facility], , 2776-10 ####[facility] ([id number])[address] [address], [place] [address] Potassium [Moles/Vol] 4.3 mmol/L Normal 3.5-5.0 [facility] Comment on above: Performed By: #### Timmy MILLIGAN, [facility], , 2776-10 ####[facility] ([id number])[address] [address] Sodium [Moles/Vol] 139 mmol/L Normal 134-146 [facility] Comment on above: Performed By: #### Timmy MILLIGAN, BMP, , 2776-10 ####[facility] ([id number])[address] [address] Urea nitrogen [Mass/Vol] 10 mg/dL Normal 5-27 [facility] Comment on above: Performed By: #### Timmy MILLIGAN, [facility], , 2776-10 ####[facility] ([id number])[address] [place] [address] COMPLETE BLOOD COUNTon 10-19 Erythrocyte distribution width (RBC) [Ratio] 22.7 % High 11.5-15.0 [facility] Comment on above: Performed By: #### C SRINI [facility], , 2776-10 ####[facility] ([id number])[address], [address] [place] [address] Hematocrit (Bld) [Volume fraction] 24.4 % Low 35-47 [facility] Comment on above: Performed By: #### C SRINI [facility], , 2776-10 ####[facility] ([id number])[address], [address] [place] [address] Hemoglobin (Bld) [Mass/Vol] 7.8 g/dL Low 11.7-15.5 [facility] Comment on above: Performed By: #### Timmy MILLIGAN [facility], , 2776-10 ####[facility] ([id number])[address], [address] [place] [address] MCH (RBC) [Entitic mass] 25.9 pg Low 27-34 [facility] Comment on above: Performed By: #### SANTOSH SALEEM, , 2776-10 ####[facility] ([id number])[address], [address] [place] [address] MCHC (RBC) [Mass/Vol] 31.8 g/dL Low 32-36 [facility] Comment on above: Performed By: #### SANTOSH SALEEM, , 2776-10 ####[facility] ([id number])[address], [address] [address] MCV (RBC) [Entitic vol] 82 fL Normal 80-100 [facility] Comment on above: Performed By: #### Timmy MILLIGAN BMP, , 2776-10 ####[facility] ([id number])[address], [address], [place] [address] Platelet mean volume (Bld) [Entitic vol] 6.6 fL Low 7-12 [facility] Comment on above: Performed By: #### C SRINI, [facility], , 2776-10 ####[facility] ([id number])[address], [address], [place] [address] Platelets (Bld) [#/Vol] 533 10*3/uL High 150-450 [facility] Comment on above: Performed By: #### Timmy MILLIGAN, [facility], , 2776-10 ####[facility] ([id number])[address] [address], [place] [address] RBC COUNT 2.99 X10E12/L Low 3.80-5.20 [facility] Comment on above: Performed By: #### Timmy MILLIGAN, [facility], , 2776-10 ####[facility] ([id number])0 [address] [address] [place] [address] WBC (Bld) [#/Vol] 9.9 10*3/uL Normal 4.0-11.0 [facility] Comment on above: Performed By: #### Timmy MILLIGAN, [facility], , 2776-10 ####[facility] ([id number])0 [address] [address] [place] [address], [place] [address] Calcium.ionized (Bld) [Mass/ Vol]on 10-19-2023 IONIZED CALCIUM 4.9 mg/dL Normal 4.5-5.3 [facility] Comment on above: Performed By: #### 3 8230-9 ####[facility] ([id number])[address] [address], [place] [address] Glucose Glucometer (BldC) [M ass/Vol]on 10-19-2023 Glucose [Mass/Vol] 102 mg/dL High 65-99 [facility] Glucose [Mass/Vol] 117 mg/dL High 65-99 [facility] Glucose [Mass/Vol] 103 mg/dL High 65-99 [facility] MAGNESIUMon 10-19-2023 Magnesium [Mass/Vol] 2.0 mg/dL Normal 1.8-2.6 [facility] Comment on above: Performed By: #### Timmy MILLIGAN, BMP, , 2776-10 ####[facility] ([id number])[address], [address], [place] [address] PHOSPHORUSon 10-19-2023 Phosphate [Mass/Vol] 4.3 mg/dL Normal 2.4-4.9 [facility] Comment on above: Performed By: #### SANTOSH SALEEM, , 2776-10 ####[facility] ([id number])[address], [address], [place] [address] BASIC METABOLIC PANLon 10-18 Anion gap [Moles/Vol] 10 mmol/L Normal 5-15 [facility] Comment on above: Performed By: #### Timmy MILLIGAN, SANTOSH, , 2776-10, 308- ####[facility] ([id number])[address], [address], [place] [address] Calcium [Mass/Vol] 8.5 mg/dL Normal 8.5-10.5 [facility] Comment on above: Performed By: #### Timmy MILLIGAN, BMP, , 2776-10, 3083- ####[facility] ([id number])[address], [address], [place] [address] Chloride [Moles/Vol] 107 mmol/L Normal 98-109 [facility] Comment on above: Performed By: #### Timmy MILLIGAN, BMP, , 2776-10, 3083-1 ####[facility] ([id number])[address], [address], [place] [address] CO2 [Moles/Vol] 23 mmol/L Normal 22-32 [facility] Comment on above: Performed By: #### C SANTOSH MILLIGAN, , 2776-10, 3083-10 ####[facility] ([id number])[address], [address], [place] [address] Creatinine [Mass/Vol] 1.17 mg/dL High 0.40-1.00 [facility] Comment on above: Result Comment: METH OD TRACEABLE TO IDMS STANDARD Performed By: #### C SANTOSH MILLIGAN, , 2776-10, 3083-10 ####[facility] ([id number])[address], [address], [place] [address] GFR/1.73 sq M.predicted among non-blacks MDRD (S/P/Bld) [Vol rate/Area] 48 mL/min/{1.73_m2} Low >59 [facility] Comment on above: Result Comment: Reported eGFR is based on the CKD-EPI 2020 equation that does not use a race coefficient. Performed By: #### SANTOSH SALEEM, , 2776-10, 3083-10 ####[facility] ([id number])[address], [address], [place] [address] Glucose [Mass/Vol] 82 mg/dL Normal 65-99 [facility] Comment on above: Performed By: #### Timmy MILLIGAN, SANTOSH, , 2776-10, 3083-10 ####[facility] ([id number])[address] [address], [place] [address] Potassium [Moles/Vol] 4.0 mmol/L Normal 3.5-5.0 [facility] Comment on above: Performed By: #### SANTOSH SALEEM, , 2776-10, 3083-10 ####[facility] ([id number])[address] [address], [place] [address] Sodium [Moles/Vol] 140 mmol/L Normal 134-146 [facility] Comment on above: Performed By: #### C BC, BMP, , 2776-10, 3083-10 ####[facility] ([id number])[address] [address] [place] [address] Urea nitrogen [Mass/Vol] 11 mg/dL Normal 5-27 [facility] Comment on above: Performed By: #### C BC, BMP, , 2776-10, 3083-10 ####[facility] ([id number])[address] [address] COMPLETE BLOOD COUNTon 10-18 Erythrocyte distribution width (RBC) [Ratio] 21.2 % High 11.5-15.0 [facility] Comment on above: Performed By: #### Timmy BC, BMP, , 2776-10, 3083-10 ####[facility] ([id number])[address] [address] Hematocrit (Bld) [Volume fraction] 24.6 % Low 35-47 [facility] Comment on above: Performed By: #### Timmy BC, BMP, , 2776-10, 3083-10 ####[facility] ([id number])[address] [address] [place] [address] Hemoglobin (Bld) [Mass/Vol] 7.9 g/dL Low 11.7-15.5 [facility] Comment on above: Performed By: #### C BC, BMP, , 2776-10, 3083-10 ####[facility] ([id number])[address] [address] MCH (RBC) [Entitic mass] 26.2 pg Low 27-34 [facility] Comment on above: Performed By: #### Timmy MILLIGAN, BMP, , 2776-10, 3083-10 ####[facility] ([id number])[address], [address] [place] [address] MCHC (RBC) [Mass/Vol] 32.2 g/dL Normal 32-36 [facility] Comment on above: Performed By: #### Timmy BC, BMP, , 2776-10, 3083- ####[facility] ([id number])[address], [address], [place] [address] MCV (RBC) [Entitic vol] 81 fL Normal 80-100 [facility] Comment on above: Performed By: #### Timmy MILLIGAN, BMP, , 2776-10, 3083-10 ####[facility] ([id number])0 [address] [address] [place] [address] Platelet mean volume (Bld) [Entitic vol] 6.5 fL Low 7-12 [facility] Comment on above: Performed By: #### Timmy MILLIGAN, BMP, , 2776-10, 3083-10 ####[facility] ([id number])[address] [address] [place] [address] Platelets (Bld) [#/Vol] 522 10*3/uL High 150-450 [facility] Comment on above: Performed By: #### Timmy BC, BMP, , 2776-10, 3083-10 ####[facility] ([id number])[address] [address] [place] [address] RBC COUNT 3.03 X10E12/L Low 3.80-5.20 [facility] Comment on above: Performed By: #### Timmy BC, BMP, , 2776-10, 3083- ####[facility] ([id number])[address], [address] [place] [address] WBC (Bld) [#/Vol] 9.3 10*3/uL Normal 4.0-11.0 [facility] Comment on above: Performed By: #### C SANTOSH MILLIGAN, , 2776-, 3083-1 ####[facility] ([id number])[address], [address] [place] [address] Calcium.ionized (Bld) [Mass/ Vol]on 10-18-2023 IONIZED CALCIUM 4.9 mg/dL Normal 4.5-5.3 [facility] Comment on above: Performed By: #### 3 8230-9 ####[facility] ([id number])[address], [address] [place] [address] Glucose Glucometer (BldC) [M ass/Vol]on 10-18-2023 Glucose [Mass/Vol] 108 mg/dL High 65-99 [facility] Glucose [Mass/Vol] 134 mg/dL High 65-99 [facility] Glucose [Mass/Vol] 127 mg/dL High 65-99 [facility] Glucose [Mass/Vol] 102 mg/dL High 65-99 [facility] MAGNESIUMon 10-18-2023 Magnesium [Mass/Vol] 1.7 mg/dL Low 1.8-2.6 [facility] Comment on above: Performed By: #### C SRINI, SANTOSH, , 2776-10, 3083-10 ####[facility] ([id number])[address], [address] [place] [address] MR CERVICAL SPINE WO CONTon 10-18-2023 MR [...] Roni William MD on 10/18/2023 2:39 AM [facility] MR LUMBAR SPINE WO CONTon MR LUMBAR [...] William MD on 10/18/2023 3:37 AM Normal [facility] MR THORACIC SPINE WO CONTon 10-18-2023 [...] William MD on 10/18/2023 3:25 AM Normal [facility] PHOSPHORUSon 10-18-2023 Phosphate [Mass/Vol] 4.1 mg/dL Normal 2.4-4.9 [facility] Comment on above: Performed By: #### C SRINI, BMP, 986[address]-0, 2777-1, 3084-1 ####[facility] ([id number])[address] [facility] [address] [place] [address] URIC ACIDon 10-18-2023 Urate [Mass/Vol] 4.7 mg/dL Normal 2.6-7.2 [facility] Comment on above: Performed By: #### C BC, BMP, 53665-2, 2777-1, 3084-1 ####[facility] ([id number])[address], [address] [place] [address] XR WRIST RT 2 VWSon 10-18-20 23 [...] Rod MD on 10/18/2023 2:24 PM Normal [facility] BASIC METABOLIC PANLon 10-17 Anion gap [Moles/Vol] 8 mmol/L Normal 5-15 [facility] Comment on above: Performed By: #### 1 7928-3 #### [facility] ([id number]) [address], [address] [place] [address] Calcium [Mass/Vol] 8.5 mg/dL Normal 8.5-10.5 [facility] Comment on above: Performed By: #### 1 7928-3 #### [facility] ([id number]) [address], [address] [place] [address] Chloride [Moles/Vol] 105 mmol/L Normal 98-109 [facility] Comment on above: Performed By: #### 1 7928-3 #### [facility] ([id number]) [address], [address] [place] [address] CO2 [Moles/Vol] 24 mmol/L Normal 22-32 [facility] Comment on above: Performed By: #### 1 7928-3 #### [facility] ([id number]) [address], [address] [place] [address] Creatinine [Mass/Vol] 1.03 mg/dL High 0.40-1.00 [facility] Comment on above: Result Comment: METH OD TRACEABLE TO IDMS STANDARD Performed By: #### 1 7928-3 #### [facility] ([id number]) [address], [address] [place] [address] GFR/1.73 sq M.predicted among non-blacks MDRD (S/P/Bld) [Vol rate/Area] 56 mL/min/{1.73_m2} Low >59 [facility] Comment on above: Result Comment: Reported eGFR is based on the CKD-EPI 2020 equation that does not use a race coefficient. Performed By: #### 1 7928-3 #### [facility] ([id number]) [address], [address] [place] [address] Glucose [Mass/Vol] 88 mg/dL Normal 65-99 [facility] Comment on above: Performed By: #### 1 7928-3 #### [facility] ([id number]) [address], [address] [place] [address] Potassium [Moles/Vol] 4.2 mmol/L Normal 3.5-5.0 [facility] Comment on above: Performed By: #### 1 7928-3 #### [facility] ([id number]) [address], [address] [place] [address] Sodium [Moles/Vol] 137 mmol/L Normal 134-146 [facility] Comment on above: Performed By: #### 1 7928-3 #### [facility] ([id number]) [address], [address] [place] [address] Urea nitrogen [Mass/Vol] 13 mg/dL Normal 5-27 [facility] Comment on above: Performed By: #### 1 7928-3 #### [facility] ([id number]) [address], [address] [place] [address] COMPLETE BLOOD COUNTon 10-17 Erythrocyte distribution width (RBC) [Ratio] 21.4 % High 11.5-15.0 [facility] Comment on above: Performed By: #### 1 7928-3 #### [facility] ([id number]) [address], [address] [place] [address] Hematocrit (Bld) [Volume fraction] 25.0 % Low 35-47 [facility] Comment on above: Performed By: #### 1 7928-3 #### [facility] ([id number]) [address], [address] [place] [address] Hemoglobin (Bld) [Mass/Vol] 7.9 g/dL Low 11.7-15.5 [facility] Comment on above: Performed By: #### 1 7928-3 #### [facility] ([id number]) [address], [address] [place] [address] MCH (RBC) [Entitic mass] 25.4 pg Low 27-34 [facility] Comment on above: Performed By: #### 1 7928-3 #### [facility] ([id number]) [address], [address] [place] [address] MCHC (RBC) [Mass/Vol] 31.4 g/dL Low 32-36 [facility] Comment on above: Performed By: #### 1 7928-3 #### [facility] ([id number]) [address], [address] [place] [address] MCV (RBC) [Entitic vol] 81 fL Normal 80-100 [facility] Comment on above: Performed By: #### 1 7928-3 #### [facility] ([id number]) [address], [address] [place] [address] Platelet mean volume (Bld) [Entitic vol] 6.6 fL Low 7-12 [facility] Comment on above: Performed By: #### 1 7928-3 #### [facility] ([id number]) [address], [address] [place] [address] Platelets (Bld) [#/Vol] 519 10*3/uL High 150-450 [facility] Comment on above: Performed By: #### 1 7928-3 #### [facility] ([id number]) [address], [address] [place] [address] RBC COUNT 3.09 X10E12/L Low 3.80-5.20 [facility] Comment on above: Performed By: #### 1 7928-3 #### [facility] ([id number]) [address], [address] [place] [address] WBC (Bld) [#/Vol] 10.7 10*3/uL Normal 4.0-11.0 [facility] Comment on above: Performed By: #### 1 7928-3 #### [facility] ([id number]) [address], [address] [place] [address] Calcium.ionized (Bld) [Mass/ Vol]on 10-17-2023 IONIZED CALCIUM 4.8 mg/dL Normal 4.5-5.3 [facility] Comment on above: Performed By: #### 1 7928-3 #### [facility] ([id number]) [address], [address] [place] [address] Glucose Glucometer (BldC) [M ass/Vol]on 10-17-2023 Glucose [Mass/Vol] 106 mg/dL High 65-99 [facility] Glucose [Mass/Vol] 96 mg/dL Normal 65-99 [facility] Glucose [Mass/Vol] 123 mg/dL High 65-99 [facility] Glucose [Mass/Vol] 88 mg/dL Normal 65-99 [facility] MAGNESIUMon 10-17-2023 Magnesium [Mass/Vol] 2.1 mg/dL Normal 1.8-2.6 [facility] Comment on above: Performed By: #### 1 7928-3 #### [facility] ([id number]) [address] [place] [address] PHOSPHORUSon 10-17-2023 Phosphate [Mass/Vol] 3.8 mg/dL Normal 2.4-4.9 [facility] Comment on above: Result Comment: SPEC IMEN HEMOLYZED, RESULTS INCREASED SLIGHTLY HEMOLYZED Performed By: #### 1 7928-3 #### [facility] ([id number]) [address], [address] [place] [address] BASIC METABOLIC PANLon 10-16 Anion gap [Moles/Vol] 10 mmol/L Normal 5-15 [facility] Comment on above: Performed By: #### E LEC #### [facility] ([id number]) [address] [place] [address] Calcium [Mass/Vol] 9.0 mg/dL Normal 8.5-10.5 [facility] Comment on above: Performed By: #### E LEC #### [facility] ([id number]) [address] [place] [address] Chloride [Moles/Vol] 106 mmol/L Normal 98-109 [facility] Comment on above: Performed By: #### E LEC #### [facility] ([id number]) [address] [place] [address] CO2 [Moles/Vol] 22 mmol/L Normal 22-32 [facility] Comment on above: Performed By: #### E LEC #### [facility] ([id number]) [address] [place] [address] Creatinine [Mass/Vol] 1.03 mg/dL High 0.40-1.00 [facility] Comment on above: Result Comment: METH OD TRACEABLE TO IDMS STANDARD Performed By: #### E LEC #### [facility] ([id number]) [address], [address] [place] [address] GFR/1.73 sq M.predicted among non-blacks MDRD (S/P/Bld) [Vol rate/Area] 56 mL/min/{1.73_m2} Low >59 [facility] Comment on above: Result Comment: Reported eGFR is based on the CKD-EPI 2020 equation that does not use a race coefficient. Performed By: #### E LEC #### [facility] ([id number]) [address], [address] [place] [address] Glucose [Mass/Vol] 87 mg/dL Normal 65-99 [facility] Comment on above: Performed By: #### E LEC #### [facility] ([id number]) [address], [address] [place] [address] Potassium [Moles/Vol] 4.4 mmol/L Normal 3.5-5.0 [facility] Comment on above: Performed By: #### E LEC #### [facility] ([id number]) [address], [address] [place] [address] Sodium [Moles/Vol] 138 mmol/L Normal 134-146 [facility] Comment on above: Performed By: #### E LEC #### [facility] ([id number]) [address], [address] [place] [address] Urea nitrogen [Mass/Vol] 13 mg/dL Normal 5-27 [facility] Comment on above: Performed By: #### E LEC #### [facility] ([id number]) [address], [address] [place] [address] CK [Catalytic activity/Vol]o n 10-16-2023 CPK 35 U/L Normal 24-170 [facility] Comment on above: Performed By: #### 1 7928-3 #### [facility] ([id number]) [address], [address] [place] [address] COMPLETE BLOOD COUNTon 10-16 Erythrocyte distribution width (RBC) [Ratio] 20.1 % High 11.5-15.0 [facility] Comment on above: Performed By: #### E LEC #### [facility] ([id number]) [address], [address] [place] [address] Hematocrit (Bld) [Volume fraction] 26.5 % Low 35-47 [facility] Comment on above: Performed By: #### E LEC #### [facility] ([id number]) [address], [address] [place] [address] Hemoglobin (Bld) [Mass/Vol] 8.5 g/dL Low 11.7-15.5 [facility] Comment on above: Performed By: #### E LEC #### [facility] ([id number]) [address], [address] [place] [address] MCH (RBC) [Entitic mass] 25.9 pg Low 27-34 [facility] Comment on above: Performed By: #### E LEC #### [facility] ([id number]) [address], [address] [place] [address] MCHC (RBC) [Mass/Vol] 32.1 g/dL Normal 32-36 [facility] Comment on above: Performed By: #### E LEC #### [facility] ([id number]) [address], [address] [place] [address] MCV (RBC) [Entitic vol] 81 fL Normal 80-100 [facility] Comment on above: Performed By: #### E LEC #### [facility] ([id number]) [address], [address] [place] [address] Platelet mean volume (Bld) [Entitic vol] 6.8 fL Low 7-12 [facility] Comment on above: Performed By: #### E LEC #### [facility] ([id number]) [address], [facility] [address] [place] [address] Platelets (Bld) [#/Vol] 633 10*3/uL High 150-450 [facility] Comment on above: Performed By: #### E LEC #### [facility] ([id number]) [address], [facility] [address] [place] [address] RBC COUNT 3.28 X10E12/L Low 3.80-5.20 [facility] Comment on above: Performed By: #### E LEC #### [facility] ([id number]) [address] [address] WBC (Bld) [#/Vol] 16.2 10*3/uL High 4.0-11.0 [facility] Comment on above: Performed By: #### E LEC #### [facility] ([id number]) [address], [address] [place] [address] Calcium.ionized (Bld) [Mass/ Vol]on 10-16-2023 IONIZED CALCIUM 5.0 mg/dL Normal 4.5-5.3 [facility] Comment on above: Performed By: #### E LEC #### [facility] ([id number]) [address], [address] [place] [address] Glucose Glucometer (BldC) [M ass/Vol]on 10-16-2023 Glucose [Mass/Vol] 119 mg/dL High 65-99 [facility] Glucose [Mass/Vol] 128 mg/dL High 65-99 [facility] Glucose [Mass/Vol] 125 mg/dL High 65-99 [facility] Glucose [Mass/Vol] 88 mg/dL Normal 65-99 [facility] LIVER PANELon 10-16-2023 Albumin [Mass/Vol] 2.6 g/dL Low 3.2-5.3 [facility] Comment on above: Performed By: #### 1 7928-3 #### [facility] ([id number]) [address], [address] [place] [address] ALP [Catalytic activity/Vol] 104 U/L Normal 39-130 [facility] Comment on above: Performed By: #### 1 7928-3 #### [facility] ([id number]) [address], [address] [place] [address] ALT [Catalytic activity/Vol] 6 U/L Normal 0-31 [facility] Comment on above: Performed By: #### 1 7928-3 #### [facility] ([id number]) [address], [address] [place] [address] AST [Catalytic activity/Vol] 16 U/L Normal 0-41 [facility] Comment on above: Performed By: #### 1 7928-3 #### [facility] ([id number]) [address] [place] [address] Bilirubin [Mass/Vol] 0.3 mg/dL Normal 0.3-1.2 [facility] Comment on above: Performed By: #### 1 7928-3 #### [facility] ([id number]) [address], [address] [place] [address] Bilirubin.direct [Mass/Vol] 0.1 mg/dL Normal 0.0-0.4 [facility] Comment on above: Performed By: #### 1 7928-3 #### [facility] ([id number]) [address], [address] [place] [address] Protein [Mass/Vol] 6.9 g/dL Normal 6.0-8.0 [facility] Comment on above: Performed By: #### 1 7928-3 #### [facility] ([id number]) [address] [place] [address] MAGNESIUMon 10-16-2023 Magnesium [Mass/Vol] 2.9 mg/dL High 1.8-2.6 [facility] Comment on above: Performed By: #### E LEC #### [facility] ([id number]) [address] [place] [address] PHOSPHORUSon 10-16-2023 Phosphate [Mass/Vol] 4.3 mg/dL Normal 2.4-4.9 [facility] Comment on above: Performed By: #### 1 7928-3 #### [facility] ([id number]) [address], [address] [place] [address] BASIC METABOLIC PANLon 10-15 Anion gap [Moles/Vol] 9 mmol/L Normal 5-15 [facility] Comment on above: Performed By: #### C SRINI BMP, , 2776-10 #### [facility] ([id number]) [address], [address] [place] [address] Calcium [Mass/Vol] 9.4 mg/dL Normal 8.5-10.5 [facility] Comment on above: Performed By: #### Timmy MILLIGAN, BMP, , 2776-10 #### [facility] ([id number]) [address], [address] [place] [address] Chloride [Moles/Vol] 103 mmol/L Normal 98-109 [facility] Comment on above: Performed By: #### Timmy MILLIGAN, BMP, , 2776-10 #### [facility] ([id number]) [address], [address] [place] [address] CO2 [Moles/Vol] 23 mmol/L Normal 22-32 [facility] Comment on above: Performed By: #### C SANTOSH MILLIGAN, , 2776-10 #### [facility] ([id number]) [address], [address] [place] [address] Creatinine [Mass/Vol] 0.94 mg/dL Normal 0.40-1.00 [facility] Comment on above: Result Comment: METH OD TRACEABLE TO IDMS STANDARD Performed By: #### C SANTOSH MILLIGAN, , 2776-10 #### [facility] ([id number]) [address], [address] [place] [address] GFR/1.73 sq M.predicted among non-blacks MDRD (S/P/Bld) [Vol rate/Area] 62 mL/min/{1.73_m2} Normal >59 [facility] Comment on above: Result Comment: Reported eGFR is based on the CKD-EPI 2020 equation that does not use a race coefficient. Performed By: #### C SRINI [facility], , 2776-10 #### [facility] ([id number]) [address], [address] [place] [address] Glucose [Mass/Vol] 89 mg/dL Normal 65-99 [facility] Comment on above: Performed By: #### SANTOSH SALEEM, , 2776-10 #### [facility] ([id number]) [address], [address] [place] [address] Potassium [Moles/Vol] 4.2 mmol/L Normal 3.5-5.0 [facility] Comment on above: Performed By: #### C SANTOSH MILLIGAN, , 2776-10 #### [facility] ([id number]) [address], [address] [place] [address] Sodium [Moles/Vol] 135 mmol/L Normal 134-146 [facility] Comment on above: Performed By: #### C SANTOSH MILLIGAN, , 2776-10 #### [facility] ([id number]) [address], [address] [place] [address] Urea nitrogen [Mass/Vol] 13 mg/dL Normal 5-27 [facility] Comment on above: Performed By: #### C SRINI, BMP, , 2776-10 #### [facility] ([id number]) [address], [address] [place] [address] COMPLETE BLOOD COUNTon 10-15 Erythrocyte distribution width (RBC) [Ratio] 18.7 % High 11.5-15.0 [facility] Comment on above: Performed By: #### C SRINI, [facility], , 2776-10 #### [facility] ([id number]) [address], [address] [place] [address] Hematocrit (Bld) [Volume fraction] 29.7 % Low 35-47 [facility] Comment on above: Performed By: #### Timmy MILLIGAN [facility], , 2776-10 #### [facility] ([id number]) [address], [address] [place] [address] Hemoglobin (Bld) [Mass/Vol] 9.3 g/dL Low 11.7-15.5 [facility] Comment on above: Performed By: #### Timmy MILLIGAN, BMP, , 2776-10 #### [facility] ([id number]) [address], [address] [place] [address] MCH (RBC) [Entitic mass] 25.1 pg Low 27-34 [facility] Comment on above: Performed By: #### C BC, BMP, , 2776-10 #### [facility] ([id number]) [address], [address] [place] [address] MCHC (RBC) [Mass/Vol] 31.3 g/dL Low 32-36 [facility] Comment on above: Performed By: #### Timmy MILLIGAN, SANTOSH, , 2776-10 #### [facility] ([id number]) [address], [address] [place] [address] MCV (RBC) [Entitic vol] 80 fL Normal 80-100 [facility] Comment on above: Performed By: #### SANTOSH SALEEM, , 2776-10 #### [facility] ([id number]) [address], [address] [place] [address] Platelet mean volume (Bld) [Entitic vol] 7.0 fL Normal 7-12 [facility] Comment on above: Performed By: #### Timmy MILLIGAN, SANTOSH, , 2776-10 #### [facility] ([id number]) [address], [address] [place] [address] Platelets (Bld) [#/Vol] 705 10*3/uL High 150-450 [facility] Comment on above: Performed By: #### SANTOSH SALEEM, , 2776-10 #### [facility] ([id number]) [address], [address] [place] [address] RBC COUNT 3.71 X10E12/L Low 3.80-5.20 [facility] Comment on above: Performed By: #### SANTOSH SALEEM, , 2776-10 #### [facility] ([id number]) [address], [address] [place] [address] WBC (Bld) [#/Vol] 24.4 10*3/uL High 4.0-11.0 [facility] Comment on above: Performed By: #### Timmy MILLIGAN, SANTOSH, , 2776-10 #### [facility] ([id number]) [address], [address] [place] [address] Calcium.ionized (Bld) [Mass/ Vol]on 10-15-2023 IONIZED CALCIUM 4.8 mg/dL Normal 4.5-5.3 [facility] Comment on above: Performed By: #### 3 8230-9 #### [facility] ([id number]) [address], [address] [place] [address] FL SWALLOW MOTILITY FUNCTION on 10-15-2023 FL [...] Pereira MD on 10/15/2023 2:48 PM Normal [facility] Glucose Glucometer (BldC) [M ass/Vol]on 10-15-2023 Glucose [Mass/Vol] 111 mg/dL High 65-99 [facility] Glucose [Mass/Vol] 93 mg/dL Normal 65-99 [facility] Glucose [Mass/Vol] 99 mg/dL Normal 65-99 [facility] MAGNESIUMon 10-15-2023 Magnesium [Mass/Vol] 1.5 mg/dL Low 1.8-2.6 [facility] Comment on above: Performed By: #### E LEC #### [facility] ([id number]) [address], [address] [place] [address] PHOSPHORUSon 10-15-2023 Phosphate [Mass/Vol] 3.4 mg/dL Normal 2.4-4.9 [facility] Comment on above: Performed By: #### E LEC #### [facility] ([id number]) [address], [address] [place] [address] Vancomycin trough [Mass/Vol] on 10-15-2023 VANCOMYCIN TROUGH 15.5 ug/mL Normal 5.0-20.0 [facility] Comment on above: Performed By: #### E LEC #### [facility] ([id number]) [address], [address] [place] [address] ELECTROLYTESon 10-14-2023 Anion gap [Moles/Vol] 7 mmol/L Normal 5-15 [facility] Comment on above: Performed By: #### E LEC #### [facility] ([id number]) [address], [address] [place] [address] Chloride [Moles/Vol] 106 mmol/L Normal 98-109 [facility] Comment on above: Performed By: #### E LEC #### [facility] ([id number]) [address], [address] [place] [address] CO2 [Moles/Vol] 22 mmol/L Normal 22-32 [facility] Comment on above: Performed By: #### E LEC #### [facility] ([id number]) [address], [address] [place] [address] Potassium [Moles/Vol] 5.8 mmol/L High 3.5-5.0 [facility] Comment on above: Performed By: #### E LEC #### [facility] ([id number]) [address], [address] [place] [address] Sodium [Moles/Vol] 135 mmol/L Normal 134-146 [facility] Comment on above: Performed By: #### E LEC #### [facility] ([id number]) [address] [place] [address] Glucose Glucometer (BldC) [M ass/Vol]on 10-14-2023 Glucose [Mass/Vol] 84 mg/dL Normal 65-99 [facility] Glucose [Mass/Vol] 105 mg/dL High 65-99 [facility] Glucose [Mass/Vol] 85 mg/dL Normal 65-99 [facility] BLOOD CULTUREon 10-13-2023 Bacteria identified Aer cx Nom (Bld) SPECIMEN NOTES SUBOPTIMAL VOLUME OF BLOOD COLLECTED, RESULTS MAY BE AFFECTED. CULTURE RESULTS NO GROWTH 5 DAYS Normal [facility] Comment on above: Performed By: #### 1 7928-3 #### [facility] ([id number]) [address], [address] [place] [address] BLOOD CULTUREon 10-05-2023 Bacteria identified Aer cx Nom (Bld) CULTURE RESULTS STAPHYLOCOCCUS AUREUS METHICILLIN RESISTANT Staphylcoccus aureus detected by PCR. mecA/C and MREJ gene detected by PCR (MRSA). Organism: STAPHYLOCOCCUS AUREUS Antibiotic Interpretation NATALIA Status CEFAZOLIN R F CLINDAMYCIN R >=4 F OXACILLIN R >=4 F TRIMETH/SULFAMETHOXAZOLE S <=.5/9.5 F VANCOMYCIN S 1 F DAPTOMYCIN S 0.25 F DOXYCYCLINE S 2 F Susceptible [facility] Comment on above: Performed By: #### 1 7928-3 #### [facility] ([id number]) [address], [address] [place] [address] Calcium [Mass/volume] in Ser um or PlasmaOrdered By: Jesus Alberto Aquino on 08-20-2023 Calcium [Mass/Vol] 7.5 mg/dL 8.6-10.3 [place] Carbon dioxide, total [Moles /volume] in Serum or PlasmaOrdered By: Jesus Alberto Aquino on 08-20-2023 CO2 [Moles/Vol] 25.5 mmol/L 21.0-31.0 [facility] Chloride [Moles/volume] in S kaveh or PlasmaOrdered By: Jesus Alberto Aquino on 08-20-2023 Chloride [Moles/Vol] 109 mmol/L 98-107 [facility] Creatinine [Mass/volume] in Serum or PlasmaOrdered By: Jesus Alberto Aquino on 08-20-2023 Creatinine [Mass/Vol] 1.08 mg/dL 0.60-1.20 [facility] Comment on above: Delta: 1.60 on 08/19 Glucose [Mass/volume] in Ser um or PlasmaOrdered By: Jesus Alberto Aquino on 08-20-2023 Glucose [Mass/Vol] 57 mg/dL 70-100 [place] Comment on above: ADA recommended refe rence rangeRandom Glucose Reference Range is dependent on time and content of last meal. Glucose of more than 200 mg/dL in a nonstressed, ambulatory subject supports the diagnosis of Diabetes Mellitus. No Panel InformationOrdered By: Jesus Alberto Aquino on 08-20-2023 Estimated GFR (CKD-EPI) 52.905 mL/Min [facility] Creatinine Clearance (Chem 41.58 [facility] Potassium [Moles/volume] in Serum or PlasmaOrdered By: Jesus Alberto Aquino on 08-20-2023 Potassium [Moles/Vol] 4.2 mmol/L 3.5-5.1 [facility] Serum or plasma anion gap de terminationOrdered By: Jesus Alberto Aquino on 08-20-2023 Anion gap [Moles/Vol] 12.7 mmol/L 6.0-15.0 [facility] Sodium [Moles/volume] in Ser um or PlasmaOrdered By: Jesus Alberto Aquino on 08-20-2023 Sodium [Moles/Vol] 143 mmol/L 136-145 [place] Urea nitrogen [Mass/volume] in Serum or PlasmaOrdered By: Jesus Alberto Aquino on 08-20-2023 Urea nitrogen [Mass/Vol] 19 mg/dL 7-25 [facility] Erythrocyte distribution wid th Auto (RBC) [Ratio]Ordered By: Jesus Alberto Aquino on 08-19-2023 Erythrocyte distribution width (RBC) [Ratio] 17.2 % 11.9-15.3 [facility] Hematocrit Auto (Bld) [Volum e fraction]Ordered By: Jesus Alberto Aquino on 08-19-2023 Hematocrit (Bld) [Volume fraction] 31.8 % 34.0-46.4 [facility] Hemoglobin [Mass/volume] in BloodOrdered By: Jesus Alberto Aquino on 08-19-2023 Hemoglobin (Bld) [Mass/Vol] 10.3 g/dL 11.8-15.4 [facility] Leukocytes [#/volume] correc juma for nucleated erythrocytes in Blood by Automated counOrdered By: Jesus Alberto Aquino on 08-19-2023 WBC corrected for nucl RBC Auto (Bld) [#/Vol] 15.6 10*3/uL 3.8-11.6 [facility] MCH Auto (RBC) [Entitic mass ]Ordered By: Jesus Alberto Aquino on 08-19-2023 MCH (RBC) [Entitic mass] 27.7 pg 24.7-34.3 [facility] MCHC Auto (RBC) [Mass/Vol]Or dered By: Jesus Alberto Aquino on 08-19-2023 MCHC (RBC) [Mass/Vol] 32.4 g/dL 32.0-35.0 [facility] MCV Auto (RBC) [Entitic vol] Ordered By: Jesus Alberto Aquino on 08-19-2023 MCV (RBC) [Entitic vol] 85.4 fL 80-100 [facility] Platelet mean volume Auto (B ld) [Entitic vol]Ordered By: Jesus Alberto Aquino on 08-19-2023 Platelet mean volume (Bld) [Entitic vol] 8.9 fL 6.3-10.7 [facility] Platelets Auto (Bld) [#/Vol] Ordered By: Jesus Alberto Aquino on 08-19-2023 Platelets (Bld) [#/Vol] 201 10*3/uL 150-450 [facility] RBC Auto (Bld) [#/Vol]Ordere d By: Jesus Alberto Aquino on 08-19-2023 RBC (Bld) [#/Vol] 3.72 10*6/uL 3.60-5.00 [facility] Basophils Auto (Bld) [#/Vol] Ordered By: Jesus Alberto Aquino on 08-18-2023 Basophils (Bld) [#/Vol] 0.1 10*3/uL 0.0-0.2 [facility] Basophils/100 WBC Auto (Bld) Ordered By: Jesus Alberto Aquino on 08-18-2023 Basophils/100 WBC (Bld) 0.3 % . [facility] Eosinophils Auto (Bld) [#/Vo l]Ordered By: Jesus Alberto Aquino on 08-18-2023 Eosinophils (Bld) [#/Vol] 0.0 10*3/uL 0.0-0.45 [facility] Eosinophils/100 WBC Auto (Bl d)Ordered By: Jesus Alberto Aquino on 08-18-2023 Eosinophils/100 WBC (Bld) 0.1 % . [facility] Lymphocytes Auto (Bld) [#/Vo l]Ordered By: Jesus Alberto Aquino on 08-18-2023 Lymphocytes (Bld) [#/Vol] 2.8 10*3/uL 1.00-4.8 [facility] Lymphocytes/100 WBC Auto (Bl d)Ordered By: Jesus Alberto Aquino on 08-18-2023 Lymphocytes/100 WBC (Bld) 10.9 % . [facility] Monocytes Auto (Bld) [#/Vol] Ordered By: Jesus Alberto Aquino on 08-18-2023 Monocytes (Bld) [#/Vol] 1.1 10*3/uL 0.0-0.8 [facility] Monocytes/100 WBC Auto (Bld) Ordered By: Jesus Alberto Aquino on 08-18-2023 Monocytes/100 WBC (Bld) 4.4 % . [facility] Neutrophils Auto (Bld) [#/Vo l]Ordered By: Jesus Alberto Aquino on 08-18-2023 Neutrophils (Bld) [#/Vol] 21.6 10*3/uL 1.8-7.7 [facility] Neutrophils/100 WBC Auto (Bl d)Ordered By: Jesus Alberto Aquino on 08-18-2023 Neutrophils/100 WBC (Bld) 84.3 % . [facility] Nucleated erythrocytes [Pres ence] in Blood by Automated countOrdered By: Jesus Alberto Aquino on 08-18-2023 Nucleated RBC Auto Ql (Bld) 0.2 /100{WBC} 0-0.5 [facility] WBC Auto (Bld) [#/Vol]Ordere d By: Jesus Alberto Kenia on 08-18-2023 WBC (Bld) [#/Vol] 25.6 10*3/uL 3.8-11.6 [facility] Activated partial thrombopla stin time (aPTT) in platelet poor plasma by coagulation aOrdered By: Maury Morrissey on 08-17-2023 aPTT Coag (PPP) [Time] 26.3 s 25.1-36.5 [facility] Comment on above: A hematocrit value g reater than 55% may lead to inaccurate results in coagulation testing. Patients having hematocrit values >55% require a special collection tube for coagulation studies. Please contact the laboratory at [phone] for redraw instructions. Alanine aminotransferase [En zymatic activity/volume] in Serum or PlasmaOrdered By: Maury Morrissey on 08-17-2023 ALT [Catalytic activity/Vol] 24 U/L 7-52 [facility] Albumin [Mass/volume] in Ser um or Plasma by Bromocresol green (BCG) dye binding methoOrdered By: Maury Morrissey on 08-17-2023 Albumin BCG dye [Mass/Vol] 3.4 g/dL 3.5-5.7 [facility] Alkaline phosphatase [Enzyma tic activity/volume] in Serum or PlasmaOrdered By: Maury Morrissey on 08-17-2023 ALP [Catalytic activity/Vol] 64 U/L 34-104 [facility] Anisocytosis LM Ql (Bld)Orde red By: Maury Morrissey on 08-17-2023 Anisocytosis Ql (Bld) Moderate [facility] Aspartate aminotransferase [ Enzymatic activity/volume] in Serum or PlasmaOrdered By: Maury Morrissey on 08-17-2023 AST [Catalytic activity/Vol] 23 U/L 13-39 [facility] Automated erythrocytes count in urine sediment (number/area)Ordered By: Maury Morrissey on 08-17-2023 RBC Auto (Urine sed) [#/Area] 0-1 [HPF] 0-4 [facility] Automated leukocytes count i n urine sediment (number/area)Ordered By: Maury Morrissey on 08-17-2023 WBC Auto (Urine sed) [#/Area] 1-2 [HPF] 0-4 [facility] Basophils Auto (Bld) [#/Vol] Ordered By: Maury Morrissey on 08-17-2023 Basophils (Bld) [#/Vol] 0.0 10*3/uL 0.0-0.2 [facility] Basophils/100 WBC Auto (Bld) Ordered By: Maury Morrissey on 08-17-2023 Basophils/100 WBC (Bld) 0.2 % . [facility] Bilirubin Test strip Ql (U)O rdered By: Maury Morrissey on 08-17-2023 Bilirubin Ql (U) Negative Negative [facility] Bilirubin.direct [Mass/volum e] in Serum or PlasmaOrdered By: Maury Morrissey on 08-17-2023 Bilirubin.direct [Mass/Vol] 0.20 mg/dL 0.03-0.18 [facility] Bilirubin.total [Mass/volume ] in Serum or PlasmaOrdered By: Maury Morrissey on 08-17-2023 Bilirubin [Mass/Vol] 0.6 mg/dL 0.3-1.0 [facility] Calcium [Mass/volume] in Ser um or PlasmaOrdered By: Maury Morrissey on 08-17-2023 Calcium [Mass/Vol] 9.1 mg/dL 8.6-10.3 [place] Carbon dioxide, total [Moles /volume] in Serum or PlasmaOrdered By: Maury Morrissey on 08-17-2023 CO2 [Moles/Vol] 27.3 mmol/L 21.0-31.0 [facility] Chloride [Moles/volume] in S kaveh or PlasmaOrdered By: Maury Morrissey on 08-17-2023 Chloride [Moles/Vol] 97 mmol/L 98-107 [facility] Color Auto (U)Ordered By: Arturo Morrissey on 08-17-2023 Color (U) Yellow Yellow [facility] Creatine kinase [Enzymatic a ctivity/volume] in Serum or PlasmaOrdered By: Maury Morrissey on 08-17-2023 CK [Catalytic activity/Vol] 87 U/L 30-223 [facility] Creatinine [Mass/volume] in Serum or PlasmaOrdered By: Maury Morrissey on 08-17-2023 Creatinine [Mass/Vol] 4.44 mg/dL 0.60-1.20 [facility] Eosinophils Auto (Bld) [#/Vo l]Ordered By: Maury Morrissey on 08-17-2023 Eosinophils (Bld) [#/Vol] 0.0 10*3/uL 0.0-0.45 [facility] Eosinophils/100 WBC Auto (Bl d)Ordered By: Maury Morrissey on 08-17-2023 Eosinophils/100 WBC (Bld) 0.0 % . [facility] Erythrocyte distribution wid th Auto (RBC) [Ratio]Ordered By: Maury Morrissey on 08-17-2023 Erythrocyte distribution width (RBC) [Ratio] 17.6 % 11.9-15.3 [facility] Globulin Calc (S) [Mass/Vol] Ordered By: Maury Morrissey on 08-17-2023 Globulin (S) [Mass/Vol] 3.7 g/dL [facility] Glucose [Mass/volume] in Ser um or PlasmaOrdered By: Maury Morrissey on 08-17-2023 Glucose [Mass/Vol] 79 mg/dL 70-100 [place] Comment on above: ADA recommended refe rence rangeRandom Glucose Reference Range is dependent on time and content of last meal. Glucose of more than 200 mg/dL in a nonstressed, ambulatory subject supports the diagnosis of Diabetes Mellitus. Hematocrit Auto (Bld) [Volum e fraction]Ordered By: Maury Morrissey on 08-17-2023 Hematocrit (Bld) [Volume fraction] 37.9 % 34.0-46.4 [facility] Hemoglobin [Mass/volume] in BloodOrdered By: Maury Morrissey on 08-17-2023 Hemoglobin (Bld) [Mass/Vol] 12.0 g/dL 11.8-15.4 [facility] Hypochromia LM Ql (Bld)Order ed By: Maury Morrissey on 08-17-2023 Hypochromia Ql (Bld) Slight [facility] INR in Platelet poor plasma by Coagulation assayOrdered By: Maury Morrissey on 08-17-2023 INR Coag (PPP) [Relative time] 1.1 {INR} [facility] Comment on above: INR Therapeutic [...] 08-17-2023 Ketones (U) [Mass/Vol] Negative Negative [facility] - UrinalysisOrder ed By: Maury Morrissey on 08-17-2023 Hyaline casts LM Ql (Urine sed) 0-8 [LPF] 0-8 [facility] Lactate [Moles/volume] in Se rum or PlasmaOrdered By: Maury Morrissey on 08-17-2023 Lactate [Moles/Vol] 1.1 mmol/L 0.5-2.2 [facility] Leukocytes [#/volume] correc juma for nucleated erythrocytes in Blood by Automated counOrdered By: Maury Morrissey on 08-17-2023 WBC corrected for nucl RBC Auto (Bld) [#/Vol] 29.3 10*3/uL 3.8-11.6 [facility] Lymphocytes Auto (Bld) [#/Vo l]Ordered By: Maury Morrissey on 08-17-2023 Lymphocytes (Bld) [#/Vol] 2.3 10*3/uL 1.00-4.8 [facility] Lymphocytes/100 WBC Auto (Bl d)Ordered By: Maury Morrissey on 08-17-2023 Lymphocytes/100 WBC (Bld) 7.8 % . [facility] MCH Auto (RBC) [Entitic mass ]Ordered By: Maury Morrissey on 08-17-2023 MCH (RBC) [Entitic mass] 27.3 pg 24.7-34.3 [facility] MCHC Auto (RBC) [Mass/Vol]Or dered By: Maury Morrissey on 08-17-2023 MCHC (RBC) [Mass/Vol] 31.6 g/dL 32.0-35.0 [facility] MCV Auto (RBC) [Entitic vol] Ordered By: Maury Morrissey on 08-17-2023 MCV (RBC) [Entitic vol] 86.4 fL 80-100 [facility] Monocyte distribution width [Entitic volume] in Blood by AutomatedOrdered By: Maury Morrissey on 08-17-2023 Monocyte distribution width Auto (Bld) [Entitic vol] 23.25 % 0.00-20.00 [facility] Comment on above: For adults in ED, MD W > 20.0 may be associated with a higher risk of sepsis during the first 12 hrs of hospital admission Monocytes Auto (Bld) [#/Vol] Ordered By: Maury Morrissey on 08-17-2023 Monocytes (Bld) [#/Vol] 1.6 10*3/uL 0.0-0.8 [facility] Monocytes/100 WBC Auto (Bld) Ordered By: Maury Morrissey on 08-17-2023 Monocytes/100 WBC (Bld) 5.5 % . [facility] Natriuretic peptide B [Mass/ Vol]Ordered By: Maury Morrissey on 08-17-2023 Natriuretic peptide B (Bld) [Mass/Vol] 68.0 pg/mL 5-100 [facility] Neutrophils Auto (Bld) [#/Vo l]Ordered By: Maury Morrissey on 08-17-2023 Neutrophils (Bld) [#/Vol] 25.4 10*3/uL 1.8-7.7 [facility] Neutrophils/100 WBC Auto (Bl d)Ordered By: Maury Morrissey on 08-17-2023 Neutrophils/100 WBC (Bld) 86.5 % . [facility] Nitrite Test strip Ql (U)Ord ered By: Maury Morrissey on 08-17-2023 Nitrite Ql (U) Negative Negative [facility] No Panel InformationOrdered By: Maury Morrissey on 08-17-2023 Estimated GFR (CKD-EPI) 9.700 mL/Min [facility] Creatinine Clearance (Chem 10.00 [facility] Nucleated erythrocytes [Pres ence] in Blood by Automated countOrdered By: Maury Morrissey on 08-17-2023 Nucleated RBC Auto Ql (Bld) 0.1 /100{WBC} 0-0.5 [facility] Platelet adequacy [Presence] in Blood by Light microscopyOrdered By: Maury Morrissey on 08-17-2023 Platelets LM Ql (Bld) Normal Normal [facility] Platelet mean volume Auto (B ld) [Entitic vol]Ordered By: Maury Morrissey on 08-17-2023 Platelet mean volume (Bld) [Entitic vol] 8.8 fL 6.3-10.7 [facility] Platelet morphology finding [Identifier] in BloodOrdered By: Maury Morrissey on 08-17-2023 Platelet morphology finding Nom (Bld) Normal Normal [facility] Platelets Auto (Bld) [#/Vol] Ordered By: Maury Morrissey on 08-17-2023 Platelets (Bld) [#/Vol] 298 10*3/uL 150-450 [facility] Polychromasia [Presence] in Blood by Light microscopyOrdered By: Maury Morrissey on 08-17-2023 Polychromasia LM Ql (Bld) Slight [facility] Potassium [Moles/volume] in Serum or PlasmaOrdered By: Maury Morrissey on 08-17-2023 Potassium [Moles/Vol] 4.5 mmol/L 3.5-5.1 [facility] Protein Auto test strip (U) [Mass/Vol]Ordered By: Maury Morrissey on 08-17-2023 Protein (U) [Mass/Vol] Negative Negative [facility] Protein [Mass/volume] in Ser um or PlasmaOrdered By: Maury Morrissey on 08-17-2023 Protein [Mass/Vol] 7.1 g/dL 6.4-8.9 [place] Prothrombin time (PT)Ordered By: Maury Morrissey on 08-17-2023 PT Coag (PPP) [Time] 12.6 s 9.0-12.9 [facility] Comment on above: A hematocrit value g reater than 55% may lead to inaccurate results in coagulation testing. Patients having hematocrit values >55% require a special collection tube for coagulation studies. Please contact the laboratory at [phone] for redraw instructions. RBC Auto (Bld) [#/Vol]Ordere d By: Maury Morrissey on 08-17-2023 RBC (Bld) [#/Vol] 4.39 10*6/uL 3.60-5.00 [facility] RBC morphologyOrdered By: Arturo Morrissey on 08-17-2023 RBC morphology finding Nom (Bld) N/A [facility] Serum or plasma albumin/glob ulin mass ratioOrdered By: Maury Morrissey on 08-17-2023 Albumin/Globulin [Mass ratio] 0.9 {ratio} [facility] Serum or plasma anion gap de terminationOrdered By: Maury Morrissey on 08-17-2023 Anion gap [Moles/Vol] 23.2 mmol/L 6.0-15.0 [facility] Serum or plasma non-glucuron idated bilirubin measurement (mass/volume)Ordered By: Maury Morrissey on 08-17-2023 Bilirubin.indirect [Mass/Vol] 0.4 mg/dL [facility] Sodium [Moles/volume] in Ser um or PlasmaOrdered By: Maury Morrissey on 08-17-2023 Sodium [Moles/Vol] 143 mmol/L 136-145 [place] Specific gravity Auto test s trip (U) [Rel density]Ordered By: Maury Morrissey on 08-17-2023 Specific gravity (U) [Rel density] 1.008 1.001-1.03 0 [facility] Squamous epithelial cells de tection in urine sediment by light microscopyOrdered By: Maury Morrissey on 08-17-2023 Epithelial cells.squamous LM Ql (Urine sed) None seen [HPF] 0-2 [facility] Troponin I.cardiac [Mass/vol ume] in Serum or Plasma by Detection limit <= 0.01 ng/Ordered By: Maury Morrissey on 08-17-2023 Troponin I.cardiac DL <= 0.01 ng/mL [Mass/Vol] 38.1 pg/mL 0.0-15.0 [facility] Urea nitrogen [Mass/volume] in Serum or PlasmaOrdered By: Maury Morrissey on 08-17-2023 Urea nitrogen [Mass/Vol] 92 mg/dL 7-25 [facility] Urine bacteria detection by automated methodOrdered By: Maury Morrissey on 08-17-2023 Bacteria Auto Ql (U) 1+ None Seen [facility] Urine clarity by refractomet ry automatedOrdered By: Maury Morrissey on 08-17-2023 Clarity Refractometry automated (U) Clear Clear [facility] Urine glucose measurement by automated test strip (mass/volume)Ordered By: Maury Morrissey on 08-17-2023 Glucose Auto test strip (U) [Mass/Vol] Normal mg/dL Normal [facility] Urine hemoglobin detection b y automated test stripOrdered By: Maury Morrissey on 08-17-2023 Hemoglobin Auto test strip Ql (U) Trace Negative [facility] Urine leukocyte esterase det ection by automated test stripOrdered By: Maury Morrissey on 08-17-2023 Leukocyte esterase Auto test strip Ql (U) Negative Negative [facility] Urobilinogen Auto test strip (U) [Mass/Vol]Ordered By: Maury Morrissey on 08-17-2023 Urobilinogen (U) [Mass/Vol] Normal mg/dL Normal [facility] WBC Auto (Bld) [#/Vol]Ordere d By: Maury Morrissey on 08-17-2023 WBC (Bld) [#/Vol] 29.3 10*3/uL 3.8-11.6 [facility] pH Auto test strip (U)Ordere d By: Maury Morrissey on 08-17-2023 pH (U) 5.5 [pH] 5.0-9.0 [facility] Anisocytosis LM Ql (Bld)Orde red By: Bhavesh Cristobal on 07-14-2023 Anisocytosis Ql (Bld) Marked [facility] Basophils Auto (Bld) [#/Vol] Ordered By: Bhavesh Cristobal on 07-14-2023 Basophils (Bld) [#/Vol] 0.1 10*3/uL 0.0-0.2 [facility] Basophils/100 WBC Auto (Bld) Ordered By: Bhavesh Cristobal on 07-14-2023 Basophils/100 WBC (Bld) 0.3 % . [facility] Calcium [Mass/volume] in Ser um or PlasmaOrdered By: Bhavesh Cristobal on 07-14-2023 Calcium [Mass/Vol] 8.0 mg/dL 8.6-10.3 [place] Carbon dioxide, total [Moles /volume] in Serum or PlasmaOrdered By: Bhavesh Cristobal on 07-14-2023 CO2 [Moles/Vol] 28.1 mmol/L 21.0-31.0 [facility] Chloride [Moles/volume] in S kaveh or PlasmaOrdered By: Bhavesh Cristobal on 07-14-2023 Chloride [Moles/Vol] 110 mmol/L 98-107 [facility] Creatinine [Mass/volume] in Serum or PlasmaOrdered By: Bhavesh Cristobal on 07-14-2023 Creatinine [Mass/Vol] 1.10 mg/dL 0.60-1.20 [facility] Eosinophils Auto (Bld) [#/Vo l]Ordered By: Bhavesh Cristobla on 07-14-2023 Eosinophils (Bld) [#/Vol] 0.1 10*3/uL 0.0-0.45 [facility] Eosinophils/100 WBC Auto (Bl d)Ordered By: Bhavesh Cristobal on 07-14-2023 Eosinophils/100 WBC (Bld) 0.4 % . [facility] Erythrocyte distribution wid th Auto (RBC) [Ratio]Ordered By: Bhavesh Cristobal on 07-14-2023 Erythrocyte distribution width (RBC) [Ratio] 22.8 % 11.9-15.3 [facility] Glucose Glucometer (BldC) [M ass/Vol]Ordered By: Jolanta Mckenzie on 07-14-2023 Glucose [Mass/Vol] 80 mg/dL [place] Comment on above: Random Glucose Refer ence Range is dependent on time and content of last meal. Glucose of more than 200 mg/dL in a nonstressed, ambulatory subject supports the diagnosis of Diabetes Mellitus. Glucose [Mass/volume] in Ser um or PlasmaOrdered By: Bhavesh Cristobal on 07-14-2023 Glucose [Mass/Vol] 84 mg/dL 70-100 [place] Comment on above: ADA recommended refe rence rangeRandom Glucose Reference Range is dependent on time and content of last meal. Glucose of more than 200 mg/dL in a nonstressed, ambulatory subject supports the diagnosis of Diabetes Mellitus. Hematocrit Auto (Bld) [Volum e fraction]Ordered By: Bhavesh Cristoabl on 07-14-2023 Hematocrit (Bld) [Volume fraction] 33.6 % 34.0-46.4 [facility] Hemoglobin [Mass/volume] in BloodOrdered By: Bhavesh Cristobal on 07-14-2023 Hemoglobin (Bld) [Mass/Vol] 10.5 g/dL 11.8-15.4 [facility] Hypochromia LM Ql (Bld)Order ed By: Bhavesh Cristobal on 07-14-2023 Hypochromia Ql (Bld) Slight [facility] Leukocytes [#/volume] correc juma for nucleated erythrocytes in Blood by Automated counOrdered By: Bhavesh Cristobal on 07-14-2023 WBC corrected for nucl RBC Auto (Bld) [#/Vol] 19.3 10*3/uL 3.8-11.6 [facility] Lymphocytes Auto (Bld) [#/Vo l]Ordered By: Bhavesh Cristobal on 07-14-2023 Lymphocytes (Bld) [#/Vol] 4.3 10*3/uL 1.00-4.8 [facility] Lymphocytes/100 WBC Auto (Bl d)Ordered By: Bhavesh Cristobal on 07-14-2023 Lymphocytes/100 WBC (Bld) 22.1 % . [facility] MCH Auto (RBC) [Entitic mass ]Ordered By: Bhavesh Cristobal on 07-14-2023 MCH (RBC) [Entitic mass] 26.2 pg 24.7-34.3 [facility] MCHC Auto (RBC) [Mass/Vol]Or dered By: Bhavesh Cristobal on 07-14-2023 MCHC (RBC) [Mass/Vol] 31.2 g/dL 32.0-35.0 [facility] MCV Auto (RBC) [Entitic vol] Ordered By: Bhavesh Cristobal on 07-14-2023 MCV (RBC) [Entitic vol] 84.0 fL 80-100 [facility] Monocytes Auto (Bld) [#/Vol] Ordered By: Bhavesh Cristobal on 07-14-2023 Monocytes (Bld) [#/Vol] 1.4 10*3/uL 0.0-0.8 [facility] Monocytes/100 WBC Auto (Bld) Ordered By: Bhavesh Cristobal on 07-14-2023 Monocytes/100 WBC (Bld) 7.3 % . [facility] Neutrophils Auto (Bld) [#/Vo l]Ordered By: Bhavesh Cristobal on 07-14-2023 Neutrophils (Bld) [#/Vol] 13.5 10*3/uL 1.8-7.7 [facility] Neutrophils/100 WBC Auto (Bl d)Ordered By: Bhavesh Cristobal on 07-14-2023 Neutrophils/100 WBC (Bld) 69.9 % . [facility] No Panel InformationOrdered By: Bhavesh Cristobal on 07-14-2023 Estimated GFR (CKD-EPI) 51.753 mL/Min [facility] Creatinine Clearance (Chem 42.83 [facility] Nucleated erythrocytes [Pres ence] in Blood by Automated countOrdered By: Bhavesh Cristobal on 07-14-2023 Nucleated RBC Auto Ql (Bld) 0.1 /100{WBC} 0-0.5 [facility] Platelet adequacy [Presence] in Blood by Light microscopyOrdered By: Bhavesh Cristobal on 07-14-2023 Platelets LM Ql (Bld) Normal Normal [facility] Platelet mean volume Auto (B ld) [Entitic vol]Ordered By: Bhavesh Cristobal on 07-14-2023 Platelet mean volume (Bld) [Entitic vol] 7.9 fL 6.3-10.7 [facility] Platelet morphology finding [Identifier] in BloodOrdered By: Bhavesh Cristobal on 07-14-2023 Platelet morphology finding Nom (Bld) Normal Normal [facility] Platelets Auto (Bld) [#/Vol] Ordered By: Bhavesh Crsitobal on 07-14-2023 Platelets (Bld) [#/Vol] 238 10*3/uL 150-450 [facility] Polychromasia [Presence] in Blood by Light microscopyOrdered By: Bhavesh Cristobal on 07-14-2023 Polychromasia LM Ql (Bld) Slight [facility] Potassium [Moles/volume] in Serum or PlasmaOrdered By: Bhavesh Cristobal on 07-14-2023 Potassium [Moles/Vol] 4.2 mmol/L 3.5-5.1 [facility] RBC Auto (Bld) [#/Vol]Ordere d By: Bhavesh Cristobal on 07-14-2023 RBC (Bld) [#/Vol] 4.00 10*6/uL 3.60-5.00 [facility] RBC morphologyOrdered By: Wilber Cristobal on 07-14-2023 RBC morphology finding Nom (Bld) N/A [facility] Serum or plasma anion gap de terminationOrdered By: Bhavesh Cristobal on 07-14-2023 Anion gap [Moles/Vol] 9.1 mmol/L 6.0-15.0 [facility] Sodium [Moles/volume] in Ser um or PlasmaOrdered By: Bhavesh Cristobal on 07-14-2023 Sodium [Moles/Vol] 143 mmol/L 136-145 [place] Urea nitrogen [Mass/volume] in Serum or PlasmaOrdered By: Bhavesh Cristobal on 07-14-2023 Urea nitrogen [Mass/Vol] 24 mg/dL 05-21 [facility] WBC Auto (Bld) [#/Vol]Ordere d By: Bhavesh Cristobal on 07-14-2023 WBC (Bld) [#/Vol] 19.3 10*3/uL 3.8-11.6 [facility] Alanine aminotransferase [En zymatic activity/volume] in Serum or PlasmaOrdered By: Jolanta Mckenzie on 07-12-2023 ALT [Catalytic activity/Vol] 16 U/L [facility] Albumin [Mass/volume] in Ser um or Plasma by Bromocresol green (BCG) dye binding methoOrdered By: Jolanta Mckenzie on 07-12-2023 Albumin BCG dye [Mass/Vol] 3.0 g/dL 3.5-5.7 [facility] Alkaline phosphatase [Enzyma tic activity/volume] in Serum or PlasmaOrdered By: Jolanta Mckenzie on 07-12-2023 ALP [Catalytic activity/Vol] 45 U/L 34-104 [facility] Aspartate aminotransferase [ Enzymatic activity/volume] in Serum or PlasmaOrdered By: Jolanta Mckenzie on 07-12-2023 AST [Catalytic activity/Vol] 14 U/L 13-39 [facility] Bilirubin.total [Mass/volume ] in Serum or PlasmaOrdered By: Jolanta Mckenzie on 07-12-2023 Bilirubin [Mass/Vol] 0.3 mg/dL 0.3-1.0 [facility] Globulin Calc (S) [Mass/Vol] Ordered By: Jolanta Mckenzie on 07-12-2023 Globulin (S) [Mass/Vol] 2.7 g/dL [facility] Protein [Mass/volume] in Ser um or PlasmaOrdered By: Jolanta Mckenzie on 07-12-2023 Protein [Mass/Vol] 5.7 g/dL 6.4-8.9 [place] Serum or plasma albumin/glob ulin mass ratioOrdered By: Jolanta Mckenzie on 07-12-2023 Albumin/Globulin [Mass ratio] 1.1 {ratio} [facility] Acanthocytes [Presence] in B lood by Light microscopyOrdered By: Marshall Dominguez on 07-10-2023 Acanthocytes LM Ql (Bld) Slight [facility] Aerobic cultureOrdered By: Viki Mckenzie on 07-10-2023 Bacteria identified Aer cx Nom (Unsp spec) [facility] Anisocytosis LM Ql (Bld)Orde red By: Marshall Dominguez on 07-10-2023 Anisocytosis Ql (Bld) Moderate [facility] Automated erythrocytes count in urine sediment (number/area)Ordered By: Marshall Dominguez on 07-10-2023 RBC Auto (Urine sed) [#/Area] 3-4 [HPF] 0-4 [facility] Automated leukocytes count i n urine sediment (number/area)Ordered By: Marshall Dominguez on 07-10-2023 WBC Auto (Urine sed) [#/Area] Innumerable [HPF] 0-4 [facility] Bacterial blood cultureOrder ed By: Marshall Dominguez on 07-10-2023 Bacteria identified Cx Nom (Bld) NO GROWTH 5 DAYS [facility] Basophils Auto (Bld) [#/Vol] Ordered By: Masrhall Dominguez on 07-10-2023 Basophils (Bld) [#/Vol] 0.0 10*3/uL 0.0-0.2 [facility] Basophils/100 WBC Auto (Bld) Ordered By: Marshall Dominguez on 07-10-2023 Basophils/100 WBC (Bld) 0.2 % . [facility] Bilirubin Test strip Ql (U)O rdered By: Marshall Dominguez on 07-10-2023 Bilirubin Ql (U) Negative Negative [facility] Calcium [Mass/volume] in Ser um or PlasmaOrdered By: Marshall Dominguez on 07-10-2023 Calcium [Mass/Vol] 8.9 mg/dL 8.6-10.3 [place] Carbon dioxide, total [Moles /volume] in Serum or PlasmaOrdered By: Marshall Dominguez on 07-10-2023 CO2 [Moles/Vol] 32.4 mmol/L 21.0-31.0 [facility] Chloride [Moles/volume] in S kaveh or PlasmaOrdered By: Marshall Dominguez on 07-10-2023 Chloride [Moles/Vol] 105 mmol/L 98-107 [facility] Color Auto (U)Ordered By: Ruslan Dominguez on 07-10-2023 Color (U) Yellow Yellow [facility] Creatinine [Mass/volume] in Serum or PlasmaOrdered By: Marshall Dominguez on 07-10-2023 Creatinine [Mass/Vol] 1.56 mg/dL 0.60-1.20 [facility] Eosinophils Auto (Bld) [#/Vo l]Ordered By: Marshall Dominguez on 07-10-2023 Eosinophils (Bld) [#/Vol] 0.1 10*3/uL 0.0-0.45 [facility] Eosinophils/100 WBC Auto (Bl d)Ordered By: Marshall Dominguez on 07-10-2023 Eosinophils/100 WBC (Bld) 0.4 % . [facility] Erythrocyte distribution wid th Auto (RBC) [Ratio]Ordered By: Marshall Dominguez on 07-10-2023 Erythrocyte distribution width (RBC) [Ratio] 22.2 % 11.9-15.3 [facility] Glucose [Mass/volume] in Ser um or PlasmaOrdered By: Marshall Dominguez on 07-10-2023 Glucose [Mass/Vol] 83 mg/dL 70-100 [place] Comment on above: ADA recommended refe rence rangeRandom Glucose Reference Range is dependent on time and content of last meal. Glucose of more than 200 mg/dL in a nonstressed, ambulatory subject supports the diagnosis of Diabetes Mellitus. Gram stain for investigation of transfusion reactionOrdered By: Jolanta Mckenzie on 07-10-2023 Microscopic observation Gram stain Nom (Unsp spec) [facility] Hematocrit Auto (Bld) [Volum e fraction]Ordered By: Marshall Dominguez on 07-10-2023 Hematocrit (Bld) [Volume fraction] 34.4 % 34.0-46.4 [facility] Hemoglobin [Mass/volume] in BloodOrdered By: Marshall Dominguez on 07-10-2023 Hemoglobin (Bld) [Mass/Vol] 11.0 g/dL 11.8-15.4 [facility] Hypochromia LM Ql (Bld)Order ed By: Marshall Dominguez on 07-10-2023 Hypochromia Ql (Bld) Slight [facility] INR in Platelet poor plasma by Coagulation assayOrdered By: Marshall Dominguez on 07-10-2023 INR Coag (PPP) [Relative time] 0.9 {INR} [facility] Comment on above: INR Therapeutic [...] 07-10-2023 Ketones (U) [Mass/Vol] Negative Negative [facility] - UrinalysisOrder ed By: Marshall Dominguez on 07-10-2023 Hyaline casts LM Ql (Urine sed) 0-8 [LPF] 0-8 [facility] Lactate [Moles/volume] in Se rum or PlasmaOrdered By: Marshall Dominguez on 07-10-2023 Lactate [Moles/Vol] 1.6 mmol/L 0.5-2.2 [facility] Leukocytes [#/volume] correc juma for nucleated erythrocytes in Blood by Automated counOrdered By: Marshall Dominguez on 07-10-2023 WBC corrected for nucl RBC Auto (Bld) [#/Vol] 21.3 10*3/uL 3.8-11.6 [facility] Lymphocytes Auto (Bld) [#/Vo l]Ordered By: Marshall Dominguez on 07-10-2023 Lymphocytes (Bld) [#/Vol] 6.7 10*3/uL 1.00-4.8 [facility] Lymphocytes/100 WBC Auto (Bl d)Ordered By: Marshall Dominguez on 07-10-2023 Lymphocytes/100 WBC (Bld) 31.5 % . [facility] MCH Auto (RBC) [Entitic mass ]Ordered By: Marshall Dominguez on 07-10-2023 MCH (RBC) [Entitic mass] 26.5 pg 24.7-34.3 [facility] MCHC Auto (RBC) [Mass/Vol]Or dered By: Marshall Dominguez on 07-10-2023 MCHC (RBC) [Mass/Vol] 32.0 g/dL 32.0-35.0 [facility] MCV Auto (RBC) [Entitic vol] Ordered By: Marshall Dominguez on 07-10-2023 MCV (RBC) [Entitic vol] 82.7 fL 80-100 [facility] Microcytes LM Ql (Bld)Ordere d By: Marshall Dominguez on 07-10-2023 Microcytes Ql (Bld) Moderate [facility] Monocytes Auto (Bld) [#/Vol] Ordered By: Marshall Dominguez on 07-10-2023 Monocytes (Bld) [#/Vol] 1.4 10*3/uL 0.0-0.8 [facility] Monocytes/100 WBC Auto (Bld) Ordered By: Marshall Dominguez on 07-10-2023 Monocytes/100 WBC (Bld) 6.5 % . [facility] Natriuretic peptide B [Mass/ Vol]Ordered By: Marshall Dominguez on 07-10-2023 Natriuretic peptide B (Bld) [Mass/Vol] 54.0 pg/mL 5-100 [facility] Neutrophils Auto (Bld) [#/Vo l]Ordered By: Marshall Dominguez on 07-10-2023 Neutrophils (Bld) [#/Vol] 13.1 10*3/uL 1.8-7.7 [facility] Neutrophils/100 WBC Auto (Bl d)Ordered By: Marshall Dominguez on 07-10-2023 Neutrophils/100 WBC (Bld) 61.4 % . [facility] Nitrite Test strip Ql (U)Ord ered By: Marshall Dominguez on 07-10-2023 Nitrite Ql (U) Positive Negative [facility] No Panel InformationOrdered By: Marshall Dominguez on 07-10-2023 Estimated GFR (CKD-EPI) 34.030 mL/Min [facility] Creatinine Clearance (Chem N/A [facility] Nucleated erythrocytes [Pres ence] in Blood by Automated countOrdered By: Marshall Dominguez on 07-10-2023 Nucleated RBC Auto Ql (Bld) 0.1 /100{WBC} 0-0.5 [facility] Ovalocyte detectionOrdered B y: Marshall Dominguez on 07-10-2023 Ovalocytes LM Ql (Bld) [facility] Platelet adequacy [Presence] in Blood by Light microscopyOrdered By: Marshall Dominguez on 07-10-2023 Platelets LM Ql (Bld) Normal Normal [facility] Platelet mean volume Auto (B ld) [Entitic vol]Ordered By: Marshall Dominguez on 07-10-2023 Platelet mean volume (Bld) [Entitic vol] 8.0 fL 6.3-10.7 [facility] Platelet morphology finding [Identifier] in BloodOrdered By: Marshall Dominguez on 07-10-2023 Platelet morphology finding Nom (Bld) N/A [facility] Platelets Auto (Bld) [#/Vol] Ordered By: Marshall Dominguez on 07-10-2023 Platelets (Bld) [#/Vol] 250 10*3/uL 150-450 [facility] Poikilocytosis [Presence] in Blood by Light microscopyOrdered By: Marshall Dominguez on 07-10-2023 Poikilocytosis LM Ql (Bld) Slight [facility] Polychromasia [Presence] in Blood by Light microscopyOrdered By: Marshall Dominguez on 07-10-2023 Polychromasia LM Ql (Bld) Slight [facility] Potassium [Moles/volume] in Serum or PlasmaOrdered By: Marshall Dominguez on 07-10-2023 Potassium [Moles/Vol] 3.9 mmol/L 3.5-5.1 [facility] Protein Auto test strip (U) [Mass/Vol]Ordered By: Marshall Dominguez on 07-10-2023 Protein (U) [Mass/Vol] 30 mg/dL Negative [facility] Prothrombin time (PT)Ordered By: Marshall Dominguez on 07-10-2023 PT Coag (PPP) [Time] 10.6 s 9.0-12.9 [facility] Comment on above: A hematocrit value g reater than 55% may lead to inaccurate results in coagulation testing. Patients having hematocrit values >55% require a special collection tube for coagulation studies. Please contact the laboratory at [phone] for redraw instructions. RBC Auto (Bld) [#/Vol]Ordere d By: Marshall Dominguez on 07-10-2023 RBC (Bld) [#/Vol] 4.17 10*6/uL 3.60-5.00 [facility] RBC morphologyOrdered By: Ruslan Dominguez on 07-10-2023 RBC morphology finding Nom (Bld) N/A [facility] Serum or plasma anion gap de terminationOrdered By: Marshall Dominguez on 07-10-2023 Anion gap [Moles/Vol] 9.5 mmol/L 6.0-15.0 [facility] Sodium [Moles/volume] in Ser um or PlasmaOrdered By: Marshall Dominguez on 07-10-2023 Sodium [Moles/Vol] 143 mmol/L 136-145 [place] Specific gravity Auto test s trip (U) [Rel density]Ordered By: Marshall Dominguez on 07-10-2023 Specific gravity (U) [Rel density] 1.022 1.001-1.03 0 [facility] Squamous epithelial cells de tection in urine sediment by light microscopyOrdered By: Marshall Dominguez on 07-10-2023 Epithelial cells.squamous LM Ql (Urine sed) 1-2 [HPF] 0-2 [facility] Teardrop cell detectionOrder ed By: Marshall Dominguez on 07-10-2023 Dacrocytes LM Ql (Bld) [facility] Troponin I.cardiac [Mass/vol ume] in Serum or Plasma by Detection limit <= 0.01 ng/Ordered By: Marshall Dominguez on 07-10-2023 Troponin I.cardiac DL <= 0.01 ng/mL [Mass/Vol] 11.7 pg/mL 0.0-15.0 [facility] Urea nitrogen [Mass/volume] in Serum or PlasmaOrdered By: Marshall Dominguez on 07-10-2023 Urea nitrogen [Mass/Vol] 36 mg/dL 7-25 [facility] Urine bacteria detection by automated methodOrdered By: Marshall Dominguez on 07-10-2023 Bacteria Auto Ql (U) 2+ None Seen [facility] Urine clarity by refractomet ry automatedOrdered By: Marshall Dominguez on 07-10-2023 Clarity Refractometry automated (U) Cloudy Clear [facility] Urine culture routineOrdered By: Marshall Dominguez on 07-10-2023 Bacteria identified Cx Nom (U) Proteus mirabilis [facility] Urine glucose measurement by automated test strip (mass/volume)Ordered By: Marshall Dominguez on 07-10-2023 Glucose Auto test strip (U) [Mass/Vol] Normal mg/dL Normal [facility] Urine hemoglobin detection b y automated test stripOrdered By: Marshall Dominguez on 07-10-2023 Hemoglobin Auto test strip Ql (U) Negative Negative [facility] Urine leukocyte esterase det ection by automated test stripOrdered By: Marshall Dominguez on 07-10-2023 Leukocyte esterase Auto test strip Ql (U) 4+ Negative [facility] Urobilinogen Auto test strip (U) [Mass/Vol]Ordered By: Marshall Dominguez on 07-10-2023 Urobilinogen (U) [Mass/Vol] Normal mg/dL Normal [facility] WBC Auto (Bld) [#/Vol]Ordere d By: Marshall Dominguez on 07-10-2023 WBC (Bld) [#/Vol] 21.3 10*3/uL 3.8-11.6 [facility] pH Auto test strip (U)Ordere d By: Marshall Dominguez on 07-10-2023 pH (U) 8.5 [pH] 5.0-9.0 [facility] Alanine aminotransferase [En zymatic activity/volume] in Serum or PlasmaOrdered By: Kadie Abhilashimore on 06-17-2023 ALT [Catalytic activity/Vol] 14 U/L 7-52 [facility] Albumin [Mass/volume] in Ser um or Plasma by Bromocresol green (BCG) dye binding methoOrdered By: Kadie Bullimtulio on 06-17-2023 Albumin BCG dye [Mass/Vol] 3.4 g/dL 3.5-5.7 [facility] Alkaline phosphatase [Enzyma tic activity/volume] in Serum or PlasmaOrdered By: Kadie Bullimore on 06-17-2023 ALP [Catalytic activity/Vol] 48 U/L 34-104 [facility] Aspartate aminotransferase [ Enzymatic activity/volume] in Serum or PlasmaOrdered By: Kadie Bullimore on 06-17-2023 AST [Catalytic activity/Vol] 15 U/L 13-39 [facility] Basophils Auto (Bld) [#/Vol] Ordered By: Kadie Bullimore on 06-17-2023 Basophils (Bld) [#/Vol] 0.1 10*3/uL 0.0-0.2 [facility] Basophils/100 WBC Auto (Bld) Ordered By: Kadie Bullimore on 06-17-2023 Basophils/100 WBC (Bld) 0.3 % . [facility] Bilirubin.total [Mass/volume ] in Serum or PlasmaOrdered By: Kadie Bullimore on 06-17-2023 Bilirubin [Mass/Vol] 0.4 mg/dL 0.3-1.0 [facility] Calcium [Mass/volume] in Ser um or PlasmaOrdered By: Kadie Bullimore on 06-17-2023 Calcium [Mass/Vol] 9.5 mg/dL 8.6-10.3 [place] Carbon dioxide, total [Moles /volume] in Serum or PlasmaOrdered By: Kadie Jones on 06-17-2023 CO2 [Moles/Vol] 34.6 mmol/L 21.0-31.0 [facility] Chloride [Moles/volume] in S kaveh or PlasmaOrdered By: Kadie Bullimore on 06-17-2023 Chloride [Moles/Vol] 104 mmol/L 98-107 [facility] Creatinine [Mass/volume] in Serum or PlasmaOrdered By: Kadie Bullimore on 06-17-2023 Creatinine [Mass/Vol] 1.24 mg/dL 0.60-1.20 [facility] Eosinophils Auto (Bld) [#/Vo l]Ordered By: Kadie Bullimore on 06-17-2023 Eosinophils (Bld) [#/Vol] 0.0 10*3/uL 0.0-0.45 [facility] Eosinophils/100 WBC Auto (Bl d)Ordered By: Kadie Bullimore on 06-17-2023 Eosinophils/100 WBC (Bld) 0.2 % . [facility] Erythrocyte distribution wid th Auto (RBC) [Ratio]Ordered By: Kadie [facility] on 06-17-2023 Erythrocyte distribution width (RBC) [Ratio] 21.5 % 11.9-15.3 [facility] Globulin Calc (S) [Mass/Vol] Ordered By: Kadieruslan [facility] on 06-17-2023 Globulin (S) [Mass/Vol] 2.9 g/dL [facility] Glucose [Mass/volume] in Ser um or PlasmaOrdered By: Kadie Bullimore on 06-17-2023 Glucose [Mass/Vol] 103 mg/dL 70-100 [place] Comment on above: ADA recommended refe rence rangeRandom Glucose Reference Range is dependent on time and content of last meal. Glucose of more than 200 mg/dL in a nonstressed, ambulatory subject supports the diagnosis of Diabetes Mellitus. Hematocrit Auto (Bld) [Volum e fraction]Ordered By: Kadie Jones on 06-17-2023 Hematocrit (Bld) [Volume fraction] 34.6 % 34.0-46.4 [facility] Hemoglobin [Mass/volume] in BloodOrdered By: Kadie Bullimore on 06-17-2023 Hemoglobin (Bld) [Mass/Vol] 10.9 g/dL 11.8-15.4 [facility] Leukocytes [#/volume] correc juma for nucleated erythrocytes in Blood by Automated counOrdered By: Kadie Bullimore on 06-17-2023 WBC corrected for nucl RBC Auto (Bld) [#/Vol] 17.4 10*3/uL 3.8-11.6 [facility] Lymphocytes Auto (Bld) [#/Vo l]Ordered By: Kadie Bullimore on 06-17-2023 Lymphocytes (Bld) [#/Vol] 3.7 10*3/uL 1.00-4.8 [facility] Lymphocytes/100 WBC Auto (Bl d)Ordered By: Kadie Bullimore on 06-17-2023 Lymphocytes/100 WBC (Bld) 21.2 % . [facility] MCH Auto (RBC) [Entitic mass ]Ordered By: Kadie Bullimore on 06-17-2023 MCH (RBC) [Entitic mass] 24.8 pg 24.7-34.3 [facility] MCHC Auto (RBC) [Mass/Vol]Or dered By: Kadie Bullimore on 06-17-2023 MCHC (RBC) [Mass/Vol] 31.5 g/dL 32.0-35.0 [facility] MCV Auto (RBC) [Entitic vol] Ordered By: Kadie Bullimore on 06-17-2023 MCV (RBC) [Entitic vol] 78.7 fL 80-100 [facility] Monocyte distribution width [Entitic volume] in Blood by AutomatedOrdered By: Kadie Bullimore on 06-17-2023 Monocyte distribution width Auto (Bld) [Entitic vol] 20.88 % 0.00-20.00 [facility] Comment on above: For adults in ED, MD W > 20.0 may be associated with a higher risk of sepsis during the first 12 hrs of hospital admission Monocytes Auto (Bld) [#/Vol] Ordered By: Kadie Bullimore on 06-17-2023 Monocytes (Bld) [#/Vol] 1.1 10*3/uL 0.0-0.8 [facility] Monocytes/100 WBC Auto (Bld) Ordered By: Kadie Bullimore on 06-17-2023 Monocytes/100 WBC (Bld) 6.6 % . [facility] Natriuretic peptide B [Mass/ Vol]Ordered By: Kadie Bullimore on 06-17-2023 Natriuretic peptide B (Bld) [Mass/Vol] 109.0 pg/mL 5-100 [facility] Neutrophils Auto (Bld) [#/Vo l]Ordered By: Kadie Bullimore on 06-17-2023 Neutrophils (Bld) [#/Vol] 12.4 10*3/uL 1.8-7.7 [facility] Neutrophils/100 WBC Auto (Bl d)Ordered By: Kadie Bullimore on 06-17-2023 Neutrophils/100 WBC (Bld) 71.7 % . [facility] No Panel InformationOrdered By: Kadie Hungimore on 06-17-2023 Estimated GFR (CKD-EPI) 44.823 mL/Min [facility] Creatinine Clearance (Chem 35.64 [facility] Nucleated erythrocytes [Pres ence] in Blood by Automated countOrdered By: Kadie Hungimore on 06-17-2023 Nucleated RBC Auto Ql (Bld) 0.1 /100{WBC} 0-0.5 [facility] Platelet mean volume Auto (B ld) [Entitic vol]Ordered By: Kadie Bullimore on 06-17-2023 Platelet mean volume (Bld) [Entitic vol] 7.4 fL 6.3-10.7 [facility] Platelets Auto (Bld) [#/Vol] Ordered By: Kadie Bullimore on 06-17-2023 Platelets (Bld) [#/Vol] 257 10*3/uL 150-450 [facility] Potassium [Moles/volume] in Serum or PlasmaOrdered By: Kadie Bullimore on 06-17-2023 Potassium [Moles/Vol] 3.7 mmol/L 3.5-5.1 [facility] Protein [Mass/volume] in Ser um or PlasmaOrdered By: Kadie Bullimore on 06-17-2023 Protein [Mass/Vol] 6.3 g/dL 6.4-8.9 [place] RBC Auto (Bld) [#/Vol]Ordere d By: Kadie Bullimore on 06-17-2023 RBC (Bld) [#/Vol] 4.39 10*6/uL 3.60-5.00 [facility] Serum or plasma albumin/glob ulin mass ratioOrdered By: Kadie Bullimore on 06-17-2023 Albumin/Globulin [Mass ratio] 1.2 {ratio} [facility] Serum or plasma anion gap de terminationOrdered By: Kadie Bullimore on 06-17-2023 Anion gap [Moles/Vol] 8.1 mmol/L 6.0-15.0 [facility] Sodium [Moles/volume] in Ser um or PlasmaOrdered By: Kadie Bullimore on 06-17-2023 Sodium [Moles/Vol] 143 mmol/L 136-145 [place] Troponin I.cardiac [Mass/vol ume] in Serum or Plasma by Detection limit <= 0.01 ng/Ordered By: Kadie Bullimore on 06-17-2023 Troponin I.cardiac DL <= 0.01 ng/mL [Mass/Vol] 9.5 pg/mL 0.0-15.0 [facility] Urea nitrogen [Mass/volume] in Serum or PlasmaOrdered By: Kadie Bullimore on 06-17-2023 Urea nitrogen [Mass/Vol] 25 mg/dL 7-25 [facility] WBC Auto (Bld) [#/Vol]Ordere d By: Kadie Bullimore on 06-17-2023 WBC (Bld) [#/Vol] 17.4 10*3/uL 3.8-11.6 [facility] Anisocytosis LM Ql (Bld)Orde red By: Carla Hagan on 12-31-2022 Anisocytosis Ql (Bld) Moderate [facility] Basophils Auto (Bld) [#/Vol] Ordered By: Carla Hagan on 12-31-2022 Basophils (Bld) [#/Vol] N/A [facility] Basophils/100 WBC Auto (Bld) Ordered By: Carla Hagan on 12-31-2022 Basophils/100 WBC (Bld) N/A [facility] Basophils/100 WBC Manual cnt (Bld)Ordered By: Carla Hagan on 12-31-2022 Basophils/100 WBC (Bld) 1 % 0-2 [facility] Calcium [Mass/volume] in Ser um or PlasmaOrdered By: Carla Hagan on 12-31-2022 Calcium [Mass/Vol] 8.6 mg/dL 8.2-10.2 [place] Carbon dioxide, total [Moles /volume] in Serum or PlasmaOrdered By: Carla Hagan on 12-31-2022 CO2 [Moles/Vol] 26.2 mmol/L 22.0-30.0 [facility] Chloride [Moles/volume] in S kaveh or PlasmaOrdered By: Carla Hagan on 12-31-2022 Chloride [Moles/Vol] 99 mmol/L 95-114 [facility] Creatinine and Glomerular fi ltration rate.predicted panel (S/P/Bld)Ordered By: Carla Hagan on 12-31-2022 Creatinine [Mass/Vol] 0.99 mg/dL 0.44-1.03 [facility] Eosinophils Auto (Bld) [#/Vo l]Ordered By: Carla Haagn on 12-31-2022 Eosinophils (Bld) [#/Vol] N/A [facility] Eosinophils/100 WBC Auto (Bl d)Ordered By: Carla Hagan on 12-31-2022 Eosinophils/100 WBC (Bld) N/A [facility] Eosinophils/100 WBC Manual c nt (Bld)Ordered By: Carla Hagan on 12-31-2022 Eosinophils/100 WBC (Bld) 1 % 1-3 [facility] Erythrocyte distribution wid th Auto (RBC) [Ratio]Ordered By: Carla Hagan on 12-31-2022 Erythrocyte distribution width (RBC) [Ratio] 15.7 % 11.9-15.3 [facility] Estimated glomerular filtrat ion rate (GFR) non- AmericanOrdered By: Carla Hagan on 12-31-2022 GFR/1.73 sq M.predicted among non-blacks MDRD (S/P/Bld) [Vol rate/Area] 54 mL/Min [facility] Giant platelets/100 leukocyt es [Ratio] in Blood by Manual countOrdered By: Carla Hagan on 12-31-2022 Giant platelets/100 WBC Manual cnt (Bld) [Ratio] 1 /100{WBC} [facility] Glucose [Mass/volume] in Ser um or PlasmaOrdered By: Carla Hagan on 12-31-2022 Glucose [Mass/Vol] 115 mg/dL 70-100 [place] Comment on above: ADA recommended refe rence rangeRandom Glucose Reference Range is dependent on time and content of last meal. Glucose of more than 200 mg/dL in a nonstressed, ambulatory subject supports the diagnosis of Diabetes Mellitus. Helmet cell detectionOrdered By: Carla Hagan on 12-31-2022 Helmet cells LM Ql (Bld) Slight [facility] Hematocrit Auto (Bld) [Volum e fraction]Ordered By: Carla Hagan on 12-31-2022 Hematocrit (Bld) [Volume fraction] 30.2 % 34.0-46.4 [facility] Hemoglobin [Mass/volume] in BloodOrdered By: Carla Hagan on 12-31-2022 Hemoglobin (Bld) [Mass/Vol] 9.8 g/dL 11.8-15.4 [facility] Hypochromia LM Ql (Bld)Order ed By: Carla Hagan on 12-31-2022 Hypochromia Ql (Bld) Slight [facility] - Chemistry and C hemistry - challengeOrdered By: Carla Hagan on 12-31-2022 Magnesium [Mass/Vol] 1.5 mg/dL 1.6-2.6 [facility] Leukocytes [#/volume] correc juma for nucleated erythrocytes in Blood by Automated counOrdered By: Carla Hagan on 12-31-2022 WBC corrected for nucl RBC Auto (Bld) [#/Vol] 13.4 10*3/uL 3.8-11.6 [facility] Lymphocytes Auto (Bld) [#/Vo l]Ordered By: Carla Hagan on 12-31-2022 Lymphocytes (Bld) [#/Vol] N/A [facility] Lymphocytes/100 WBC Auto (Bl d)Ordered By: Carla Hagan on 12-31-2022 Lymphocytes/100 WBC (Bld) N/A [facility] Lymphocytes/100 WBC Manual c nt (Bld)Ordered By: Carla Hagan on 12-31-2022 Lymphocytes/100 WBC (Bld) 8 % 18-42 [facility] MCH Auto (RBC) [Entitic mass ]Ordered By: Carla Hagan on 12-31-2022 MCH (RBC) [Entitic mass] 25.3 pg 24.7-34.3 [facility] MCHC Auto (RBC) [Mass/Vol]Or dered By: Carla Hagan on 12-31-2022 MCHC (RBC) [Mass/Vol] 32.3 g/dL 32.0-35.0 [facility] MCV Auto (RBC) [Entitic vol] Ordered By: Carla Hagan on 12-31-2022 MCV (RBC) [Entitic vol] 78.2 fL 80-100 [facility] Microcytes LM Ql (Bld)Ordere d By: Carla Hagan on 12-31-2022 Microcytes Ql (Bld) Moderate [facility] Monocytes Auto (Bld) [#/Vol] Ordered By: Carla Hagan on 12-31-2022 Monocytes (Bld) [#/Vol] N/A [facility] Monocytes/100 WBC Auto (Bld) Ordered By: Carla Hagan on 12-31-2022 Monocytes/100 WBC (Bld) N/A [facility] Monocytes/100 WBC Manual cnt (Bld)Ordered By: Carla Hagan on 12-31-2022 Monocytes/100 WBC (Bld) 5 % 2-11 [facility] Neutrophils Auto (Bld) [#/Vo l]Ordered By: Carla Hagan on 12-31-2022 Neutrophils (Bld) [#/Vol] N/A [facility] Neutrophils/100 WBC Auto (Bl d)Ordered By: Carla Hagan on 12-31-2022 Neutrophils/100 WBC (Bld) N/A [facility] No Panel InformationOrdered By: Carla Hagan on 12-31-2022 Estimated GFR () > 60 mL/Min [facility] Comment on above: GFR estimated refere nce range: According to KDOQI guidelines, <60 ml/min/1.73m2 is sufficient to diagnose a patient with chronic kidney disease. Pharmacy Creatinine Clearance (Chem 45.60 [facility] Nucleated erythrocytes [Pres ence] in Blood by Automated countOrdered By: Carla Hagan on 12-31-2022 Nucleated RBC Auto Ql (Bld) N/A [facility] Phosphate [Mass/volume] in S kaveh or PlasmaOrdered By: Carla Hagan on 12-31-2022 Phosphate [Mass/Vol] 3.5 mg/dL 2.5-4.6 [facility] Platelet adequacy [Presence] in Blood by Light microscopyOrdered By: Carla Hagan on 12-31-2022 Platelets LM Ql (Bld) Normal Normal [facility] Platelet mean volume Auto (B ld) [Entitic vol]Ordered By: Carla Hagan on 12-31-2022 Platelet mean volume (Bld) [Entitic vol] 6.6 fL 6.3-10.7 [facility] Platelet morphology finding [Identifier] in BloodOrdered By: Carla Hagan on 12-31-2022 Platelet morphology finding Nom (Bld) Normal Normal [facility] Platelets Auto (Bld) [#/Vol] Ordered By: Carla Hagan on 12-31-2022 Platelets (Bld) [#/Vol] 447 10*3/uL 150-450 [facility] Poikilocytosis [Presence] in Blood by Light microscopyOrdered By: Carla Hagan on 12-31-2022 Poikilocytosis LM Ql (Bld) Slight [facility] Polychromasia [Presence] in Blood by Light microscopyOrdered By: Carla Hagan on 12-31-2022 Polychromasia LM Ql (Bld) Slight [facility] Potassium [Moles/volume] in Serum or PlasmaOrdered By: Carla Hagan on 12-31-2022 Potassium [Moles/Vol] 4.1 mmol/L 3.5-5.1 [facility] RBC Auto (Bld) [#/Vol]Ordere d By: Carla Hagan on 12-31-2022 RBC (Bld) [#/Vol] 3.86 10*6/uL 3.60-5.00 [facility] RBC morphologyOrdered By: Ra carey Hagan on 12-31-2022 RBC morphology finding Nom (Bld) N/A [facility] Segmented neutrophils/100 WB C Manual cnt (Bld)Ordered By: Carla Hagan on 12-31-2022 Segmented neutrophils/100 WBC (Bld) 86 % 50-70 [facility] Serum or plasma anion gap de terminationOrdered By: Carla Hagan on 12-31-2022 Anion gap [Moles/Vol] 12.9 mmol/L 6.0-15.0 [facility] Sodium [Moles/volume] in Ser um or PlasmaOrdered By: Carla Hagan on 12-31-2022 Sodium [Moles/Vol] 134 mmol/L 136-146 [place] Urea nitrogen [Mass/volume] in Serum or PlasmaOrdered By: Carla Hagan on 12-31-2022 Urea nitrogen [Mass/Vol] 18 mg/dL 9-23 [facility] WBC Auto (Bld) [#/Vol]Ordere d By: Carla Hagan on 12-31-2022 WBC (Bld) [#/Vol] 13.4 10*3/uL 3.8-11.6 [facility] Creatine kinase [Enzymatic a ctivity/volume] in Serum or PlasmaOrdered By: Carla Hagan on 12-28-2022 CK [Catalytic activity/Vol] 108 U/L 22-269 [facility] Automated epithelial cells c ount in urine sediment (number/area)Ordered By: Maddy Morrissey on 12-27-2022 Epithelial cells Auto (Urine sed) [#/Area] 3-4 [HPF] 0-2 [facility] Automated erythrocytes count in urine sediment (number/area)Ordered By: Maddy Morrissey on 12-27-2022 RBC Auto (Urine sed) [#/Area] 0-1 [HPF] 0-4 [facility] Automated leukocytes count i n urine sediment (number/area)Ordered By: Maddy Morrissey on 12-27-2022 WBC Auto (Urine sed) [#/Area] 5-9 [HPF] 0-4 [facility] Bilirubin Test strip Ql (U)O rdered By: Maddy Morrissey on 12-27-2022 Bilirubin Ql (U) Negative Negative [facility] Color Auto (U)Ordered By: Corwin Morrissey on 12-27-2022 Color (U) Yellow Yellow [facility] Folate [Mass/volume] in Seru m or PlasmaOrdered By: Eve Mann on 12-27-2022 Folate [Mass/Vol] ng/mL >5.9 [facility] Comment on above: Folate reference ran ge: >5.9 ng/mlThe WHO technical consultation on folate and vitamin [id number] has determined that folate concentrations lessthan 4 ng/ml are considered deficient. Ketones Auto test strip (U) [Mass/Vol]Ordered By: Maddy Morrissey on 12-27-2022 Ketones (U) [Mass/Vol] Negative Negative [facility] Laboratory - Chemistry and C hemistry - challengeOrdered By: Eve Mann on 12-27-2022 Cobalamin (Vitamin B12) [Mass/Vol] 994 pg/mL 180-914 [facility] Nitrite Test strip Ql (U)Ord ered By: Maddy Morrissey on 12-27-2022 Nitrite Ql (U) Positive Negative [facility] Protein Auto test strip (U) [Mass/Vol]Ordered By: Maddy Morrissey on 12-27-2022 Protein (U) [Mass/Vol] Trace mg/dL Negative [facility] Specific gravity Auto test s trip (U) [Rel density]Ordered By: Maddy Morrissey on 12-27-2022 Specific gravity (U) [Rel density] > 1.050 1.001-1.03 0 [facility] Urine bacteria detection by automated methodOrdered By: Maddy Morrissey on 12-27-2022 Bacteria Auto Ql (U) 2+ None Seen [facility] Urine clarity by refractomet ry automatedOrdered By: Maddy Morrissey on 12-27-2022 Clarity Refractometry automated (U) Cloudy Clear [facility] Urine culture routineOrdered By: Maddy Morrissey on 12-27-2022 Bacteria identified Cx Nom (U) Escherichia coli [facility] Urine glucose measurement by automated test strip (mass/volume)Ordered By: Maddy Morrissey on 12-27-2022 Glucose Auto test strip (U) [Mass/Vol] Normal mg/dL Normal [facility] Urine hemoglobin detection b y automated test stripOrdered By: Maddy Morrissey on 12-27-2022 Hemoglobin Auto test strip Ql (U) Trace Negative [facility] Urine leukocyte esterase det ection by automated test stripOrdered By: Maddy Morrissey on 12-27-2022 Leukocyte esterase Auto test strip Ql (U) 3+ Negative [facility] Urobilinogen Auto test strip (U) [Mass/Vol]Ordered By: Maddy Morrissey on 12-27-2022 Urobilinogen (U) [Mass/Vol] Normal mg/dL Normal [facility] pH Auto test strip (U)Ordere d By: Maddy Morrissey on 12-27-2022 pH (U) 5.0 [pH] 5.0-9.0 [facility] Activated partial thrombopla stin time (aPTT) in platelet poor plasma by coagulation aOrdered By: Maddy Morrissey on 12-26-2022 aPTT Coag (PPP) [Time] 30.8 s 25.1-36.5 [facility] Basophils Auto (Bld) [#/Vol] Ordered By: Maddy Morrissey on 12-26-2022 Basophils (Bld) [#/Vol] 0.1 10*3/uL 0.0-0.2 [facility] Basophils/100 WBC Auto (Bld) Ordered By: Maddy Morrissey on 12-26-2022 Basophils/100 WBC (Bld) 0.5 % . [facility] Calcium [Mass/volume] in Ser um or PlasmaOrdered By: Maddy Morrissey on 12-26-2022 Calcium [Mass/Vol] 9.0 mg/dL 8.2-10.2 [place] Carbon dioxide, total [Moles /volume] in Serum or PlasmaOrdered By: Maddy Morrissey on 12-26-2022 CO2 [Moles/Vol] 25.8 mmol/L 22.0-30.0 [facility] Chloride [Moles/volume] in S kaveh or PlasmaOrdered By: Maddy Morrissey on 12-26-2022 Chloride [Moles/Vol] 104 mmol/L 95-114 [facility] Creatinine and Glomerular fi ltration rate.predicted panel (S/P/Bld)Ordered By: Maddy Morrissey on 12-26-2022 Creatinine [Mass/Vol] 1.22 mg/dL 0.44-1.03 [facility] Eosinophils Auto (Bld) [#/Vo l]Ordered By: Maddy Morrissey on 12-26-2022 Eosinophils (Bld) [#/Vol] 0.1 10*3/uL 0.0-0.45 [facility] Eosinophils/100 WBC Auto (Bl d)Ordered By: Maddy Morrissey on 12-26-2022 Eosinophils/100 WBC (Bld) 1.1 % . [facility] Erythrocyte distribution wid th Auto (RBC) [Ratio]Ordered By: Maddy Morrissey on 12-26-2022 Erythrocyte distribution width (RBC) [Ratio] 15.9 % 11.9-15.3 [facility] Estimated glomerular filtrat ion rate (GFR) non- AmericanOrdered By: Maddy Morrissey on 12-26-2022 GFR/1.73 sq M.predicted among non-blacks MDRD (S/P/Bld) [Vol rate/Area] 43 mL/Min [facility] Glucose [Mass/volume] in Ser um or PlasmaOrdered By: Maddy Morrissey on 12-26-2022 Glucose [Mass/Vol] 128 mg/dL 70-100 [place] Comment on above: ADA recommended refe rence rangeRandom Glucose Reference Range is dependent on time and content of last meal. Glucose of more than 200 mg/dL in a nonstressed, ambulatory subject supports the diagnosis of Diabetes Mellitus. Hematocrit Auto (Bld) [Volum e fraction]Ordered By: Maddy Morrissey on 12-26-2022 Hematocrit (Bld) [Volume fraction] 29.7 % 34.0-46.4 [facility] Hemoglobin [Mass/volume] in BloodOrdered By: Maddy Morrissey on 12-26-2022 Hemoglobin (Bld) [Mass/Vol] 9.3 g/dL 11.8-15.4 [facility] Laboratory - Chemistry and C hemistry - challengeOrdered By: Maddy Morrissey on 12-26-2022 Natriuretic peptide B (Bld) [Mass/Vol] 49.0 pg/mL 5-100 [facility] Laboratory - CoagulationOrde red By: Maddy Morrissey on 12-26-2022 PT Coag (PPP) [Time] 14.5 s 9.0-12.9 [facility] Leukocytes [#/volume] correc juma for nucleated erythrocytes in Blood by Automated counOrdered By: Maddy Morrissey on 12-26-2022 WBC corrected for nucl RBC Auto (Bld) [#/Vol] 12.0 10*3/uL 3.8-11.6 [facility] Lymphocytes Auto (Bld) [#/Vo l]Ordered By: Maddy Morrissey on 12-26-2022 Lymphocytes (Bld) [#/Vol] 3.0 10*3/uL 1.00-4.8 [facility] Lymphocytes/100 WBC Auto (Bl d)Ordered By: Maddy Morrissey on 12-26-2022 Lymphocytes/100 WBC (Bld) 24.8 % . [facility] MCH Auto (RBC) [Entitic mass ]Ordered By: Maddy Morrissey on 12-26-2022 MCH (RBC) [Entitic mass] 24.8 pg 24.7-34.3 [facility] MCHC Auto (RBC) [Mass/Vol]Or dered By: Maddy Morrissey on 12-26-2022 MCHC (RBC) [Mass/Vol] 31.2 g/dL 32.0-35.0 [facility] MCV Auto (RBC) [Entitic vol] Ordered By: Maddy Morrissey on 12-26-2022 MCV (RBC) [Entitic vol] 79.4 fL 80-100 [facility] Monocyte distribution width [Entitic volume] in Blood by AutomatedOrdered By: Maddy Morrissey on 12-26-2022 Monocyte distribution width Auto (Bld) [Entitic vol] 20.22 % 0.00-20.00 [facility] Comment on above: For adults in ED, MD W > 20.0 may be associated with a higher risk of sepsis during the first 12 hrs of hospital admission Monocytes Auto (Bld) [#/Vol] Ordered By: Maddy Morrissey on 12-26-2022 Monocytes (Bld) [#/Vol] 1.2 10*3/uL 0.0-0.8 [facility] Monocytes/100 WBC Auto (Bld) Ordered By: Maddy Morrissey on 12-26-2022 Monocytes/100 WBC (Bld) 10.1 % . [facility] Neutrophils Auto (Bld) [#/Vo l]Ordered By: Maddy Morrissey on 12-26-2022 Neutrophils (Bld) [#/Vol] 7.6 10*3/uL 1.8-7.7 [facility] Neutrophils/100 WBC Auto (Bl d)Ordered By: Maddy Morrissey on 12-26-2022 Neutrophils/100 WBC (Bld) 63.5 % . [facility] No Panel InformationOrdered By: Maddy Morrissey on 12-26-2022 Estimated GFR () 52 mL/Min [facility] Comment on above: GFR estimated refere nce range: According to KDOQI guidelines, <60 ml/min/1.73m2 is sufficient to diagnose a patient with chronic kidney disease. Pharmacy Creatinine Clearance (Chem 37.20 [facility] Nucleated erythrocytes [Pres ence] in Blood by Automated countOrdered By: Maddy Morrissey on 12-26-2022 Nucleated RBC Auto Ql (Bld) 0.1 /100{WBC} 0-0.5 [facility] Platelet mean volume Auto (B ld) [Entitic vol]Ordered By: Maddy Morrissey on 12-26-2022 Platelet mean volume (Bld) [Entitic vol] 6.5 fL 6.3-10.7 [facility] Platelet poor plasma interna tional normalized ratio (INR) by coagulation assay (relatOrdered By: Maddy Morrissey on 12-26-2022 INR Coag (PPP) [Relative time] 1.3 {INR} [facility] Comment on above: INR Therapeutic [...] 12-26-2022 Platelets (Bld) [#/Vol] 450 10*3/uL 150-450 [facility] Potassium [Moles/volume] in Serum or PlasmaOrdered By: Maddy Morrissey on 12-26-2022 Potassium [Moles/Vol] 3.9 mmol/L 3.5-5.1 [facility] RBC Auto (Bld) [#/Vol]Ordere d By: Maddy Morrissey on 12-26-2022 RBC (Bld) [#/Vol] 3.74 10*6/uL 3.60-5.00 [facility] Serum or plasma anion gap de terminationOrdered By: Maddy Morrissey on 12-26-2022 Anion gap [Moles/Vol] 10.1 mmol/L 6.0-15.0 [facility] Sodium [Moles/volume] in Ser um or PlasmaOrdered By: Maddy Morrissey on 12-26-2022 Sodium [Moles/Vol] 136 mmol/L 136-146 [place] Troponin I.cardiac [Mass/vol ume] in Serum or Plasma by High sensitivity methodOrdered By: Maddy Morrissey on 12-26-2022 Troponin I.cardiac High sensitivity method [Mass/Vol] 6 pg/mL 0-15 [facility] Urea nitrogen [Mass/volume] in Serum or PlasmaOrdered By: Maddy Morrissey on 12-26-2022 Urea nitrogen [Mass/Vol] 21 mg/dL 9-23 [facility] WBC Auto (Bld) [#/Vol]Ordere d By: Maddy Morrissey on 12-26-2022 WBC (Bld) [#/Vol] 12.0 10*3/uL 3.8-11.6 [facility] Basophils Auto (Bld) [#/Vol] Ordered By: Hilario Yeung on 05-31-2022 Basophils (Bld) [#/Vol] 0.0 10*3/uL 0.0-0.2 [facility] Basophils/100 WBC Auto (Bld) Ordered By: Hilario Yeung on 05-31-2022 Basophils/100 WBC (Bld) 0.7 % . [facility] Blood hemoglobin measurement (mass/volume)Ordered By: Hilario Yeung on 05-31-2022 Hemoglobin (Bld) [Mass/Vol] 11.6 g/dL 11.8-15.4 [facility] Blood leukocytes automated c ount (number/volume)Ordered By: Hilario Yeung on 05-31-2022 WBC (Bld) [#/Vol] 5.9 10*3/uL 4.5-11.0 [place] Creatinine and Glomerular fi ltration rate.predicted panel (S/P/Bld)Ordered By: Hilario Yeung on 05-31-2022 Creatinine [Mass/Vol] 1.22 mg/dL 0.44-1.03 [facility] Eosinophils Auto (Bld) [#/Vo l]Ordered By: Hilario Yeung on 05-31-2022 Eosinophils (Bld) [#/Vol] 0.3 10*3/uL 0.0-0.45 [facility] Eosinophils/100 WBC Auto (Bl d)Ordered By: Hilario Yeung on 05-31-2022 Eosinophils/100 WBC (Bld) 4.4 % . [facility] Erythrocyte distribution wid th Auto (RBC) [Ratio]Ordered By: Hilario Yeung on 05-31-2022 Erythrocyte distribution width (RBC) [Ratio] 16.9 % 11.9-15.3 [facility] Estimated glomerular filtrat ion rate (GFR) non- AmericanOrdered By: Hilario Yeung on 05-31-2022 GFR/1.73 sq M.predicted among non-blacks MDRD (S/P/Bld) [Vol rate/Area] 43 mL/Min [facility] Hematocrit Auto (Bld) [Volum e fraction]Ordered By: Hilario Yeung on 05-31-2022 Hematocrit (Bld) [Volume fraction] 36.6 % 34.0-46.4 [facility] - Hematology and Cell countsOrdered By: Hilario Yeung on 05-31-2022 Nucleated RBC/100 WBC (Bld) [Ratio] 0.1 % 0-0.5 [facility] Lymphocytes Auto (Bld) [#/Vo l]Ordered By: Hilario Yeung on 05-31-2022 Lymphocytes (Bld) [#/Vol] 2.4 10*3/uL 1.00-4.8 [facility] Lymphocytes/100 WBC Auto (Bl d)Ordered By: Hilario Yeung on 05-31-2022 Lymphocytes/100 WBC (Bld) 41.3 % . [facility] MCH Auto (RBC) [Entitic mass ]Ordered By: Hilario Yeung on 05-31-2022 MCH (RBC) [Entitic mass] 25.8 pg 24.7-34.3 [facility] MCHC Auto (RBC) [Mass/Vol]Or dered By: Hilario Yeung on 05-31-2022 MCHC (RBC) [Mass/Vol] 31.7 g/dL 32.0-35.0 [facility] MCV Auto (RBC) [Entitic vol] Ordered By: Hilario Yeung on 05-31-2022 MCV (RBC) [Entitic vol] 81.4 fL 80-100 [facility] Monocytes Auto (Bld) [#/Vol] Ordered By: Hilario Yeung on 05-31-2022 Monocytes (Bld) [#/Vol] 0.6 10*3/uL 0.0-0.8 [facility] Monocytes/100 WBC Auto (Bld) Ordered By: Hilario Yeung on 05-31-2022 Monocytes/100 WBC (Bld) 10.6 % . [facility] Neutrophils Auto (Bld) [#/Vo l]Ordered By: Hilario Yeung on 05-31-2022 Neutrophils (Bld) [#/Vol] 2.5 10*3/uL 1.8-7.7 [facility] Neutrophils/100 WBC Auto (Bl d)Ordered By: Hilario Yeung on 05-31-2022 Neutrophils/100 WBC (Bld) 43.0 % . [facility] No Panel InformationOrdered By: Hilario Yeung on 05-31-2022 Estimated GFR () 52 mL/Min [facility] Comment on above: GFR estimated refere nce range: According to KDOQI guidelines, <60 ml/min/1.73m2 is sufficient to diagnose a patient with chronic kidney disease. Pharmacy Creatinine Clearance (Chem 39.11 [facility] Platelet mean volume Auto (B ld) [Entitic vol]Ordered By: Hilario Yeung on 05-31-2022 Platelet mean volume (Bld) [Entitic vol] 7.5 fL 6.3-10.7 [facility] Platelets Auto (Bld) [#/Vol] Ordered By: Hilario Yeung on 05-31-2022 Platelets (Bld) [#/Vol] 209 10*3/uL 150-450 [facility] RBC Auto (Bld) [#/Vol]Ordere d By: Hilario Yeung on 05-31-2022 RBC (Bld) [#/Vol] 4.50 10*6/uL 3.60-5.00 [facility] Serum or plasma calcium roly urement (mass/volume)Ordered By: Hilario Yeung on 05-31-2022 Calcium [Mass/Vol] 9.1 mg/dL 8.2-10.2 [place] Serum or plasma chloride deirdre surement (moles/volume)Ordered By: Hilario Yeung on 05-31-2022 Chloride [Moles/Vol] 100 mmol/L 95-114 [facility] Serum or plasma glucose roly urement (mass/volume)Ordered By: Hilario Yeung on 05-31-2022 Glucose [Mass/Vol] 99 mg/dL 70-100 [place] Comment on above: ADA recommended refe rence range Random Glucose Reference Range is dependent on time and content of last meal. Glucose of more than 200 mg/dL in a nonstressed, ambulatory subject supports the diagnosis of Diabetes Mellitus. Serum or plasma potassium me asurement (moles/volume)Ordered By: Hilario Yeung on 05-31-2022 Potassium [Moles/Vol] 4.2 mmol/L 3.5-5.1 [facility] Serum or plasma sodium measu rement (moles/volume)Ordered By: Hilario Yeung on 05-31-2022 Sodium [Moles/Vol] 138 mmol/L 136-146 [place] Serum or plasma total carbon dioxide measurement (moles/volume)Ordered By: Hilario Yeung on 05-31-2022 CO2 [Moles/Vol] 29.7 mmol/L 22.0-30.0 [facility] Serum or plasma urea nitroge n measurement (mass/volume)Ordered By: Hilario Yeung on 05-31-2022 Urea nitrogen [Mass/Vol] 13 mg/dL 9-23 [facility] SCREENING MAMMOGRAM W/[place], BILATERAL*on 04-27-2022 [...] VERY IMPORTANT TO YOUR HEALTH. THE CURRENT [employer] AND [employer]WORK GUIDELINES RECOMMENDS ANNUAL MAMMOGRAPHY BEGINNING AT AGE 40 THIS FACILITY USES A REMINDER SYSTEM TO ENSURE ALL PATIENTS RECEIVE REMINDER NOTIFICATIONS AT THE APPROPRIATE TIME BASED ON THE RECOMMENDATIONS OF THIS EXAM. Board Certified Radiologist. Accredited by the ACR and FDA. Report reported and signed by Edgar Hooper on 05/01/2022 0[address] [facility] [address] Low Dose Lung Screeningon 04-26-2022 [...] by Devonte Gomez on 04/27/2022 1239 Normal [facility] XR Hip Complete Left*on 02-25 XR [...] by Wicho Bowman on 03/14/2022 1550 Normal [facility] XR Spine Lumbar 4+ Views*on 03-14-2022 [...] by Wicho Bowman on 03/14/2022 1546 Normal [facility] Training Representative CNPTOUTREACHon 12-20-2020 [facility] Patient Outreach ([facility]) -- GERA PERDUE ([id number]) 1945 F Date Time Provider Department 12/20/20 BOOS, DERICK NASH During your visit today, we recorded the following information about you: Allergies As of Date: 12/20/2020 Noted Allergy Reaction ASPRIN (ASPIRIN) 03/02/2019 1 - Mental Status Change Date Reviewed: 05/04/2020 Reviewed by: Prasad Phillips - Fully Assessed Order(s):SARS-COVID VACCINE 1ST DOSE APPT [79981ZVI] Order #: [id number] FUTURE Prescriptions as of 12/20/2020 Sig: HYDROCODONE [...] [E66.9] 02/25/2015 Letter Text Encounter Status:Closed by FROYLAN PRODUSER on 12/23/20 [facility] PROGRESSon 05-03-2020 PROGRESS HNO ID: [id number] Author: Prasad Phillips Service: ? Author Type: Physician Type: Progress Notes Filed: 05/04/2020 8:19 PM Note Text: Gera Perdue : 1945 Senior Living: [facility] PCP: guanako Date last seen: [...] of right foot Prasad Phillips DPM Normal [facility] CBC Auto Differentialon 10-0 Basophils (Bld) [#/Vol] 0.03 10*3/uL [place] Basophils/100 WBC (Bld) 0 % 0 - 2 % [place] Differential Type NOT REPORTED [place] Eosinophils (Bld) [#/Vol] 0.14 10*3/uL [place] Eosinophils/100 WBC (Bld) 2 % 1 - 4 % [place] Erythrocyte distribution width (RBC) [Ratio] 15.0 % High 11.8 - 14.4 % [place] Hematocrit (Bld) [Volume fraction] 32.7 % Low 36.3 - 47.1 % [place] Hemoglobin (Bld) [Mass/Vol] 9.9 g/dL Low 11.9 - 15.1 g/dL [place] Immature granulocytes (Bld) [#/Vol] 0.03 10*3/uL [place] Immature granulocytes (Bld) [#/Vol] 0 % 0 [place] Interpretation and review of laboratory results Abnormal [place] Lymphocytes (Bld) [#/Vol] 1.67 10*3/uL [place] Lymphocytes/100 WBC (Bld) 22 % Low 24 - 43 % [place] MCH (RBC) [Entitic mass] 27.7 pg 25.2 - 33.5 pg [place] MCHC (RBC) [Mass/Vol] 30.3 g/dL 28.4 - 34.8 g/dL [place] MCV (RBC) [Entitic vol] 91.3 fL 82.6 - 102.9 fL [place] Monocytes (Bld) [#/Vol] 1.00 10*3/uL [place] Monocytes/100 WBC (Bld) 13 % High 3 - 12 % [place] Platelet mean volume (Bld) [Entitic vol] 9.1 fL 8.1 - 13.5 fL [place] Platelets (Bld) [#/Vol] 184 10*3/uL [place] Platelets (Bld) [#/Vol] NOT REPORTED [place] RBC (Bld) [#/Vol] 3.58 10*6/uL Low 3.95 - 5.11 m/uL [place] RBC morphology finding Nom (Bld) ANISOCYTOSIS PRESENT [place] Segmented neutrophils/100 WBC (Bld) 63 % 36 - 65 % [place] Segs Absolute 4.63 [place] WBC (Bld) [#/Vol] 7.5 10*3/uL [place] WBC (Bld) [#/Vol] 0.0 10*3/uL 0.0 per 100 WBC [place] WBC Morphology NOT REPORTED [place] CBC with Diffon 08-04-2019 Abs. Basophil 0.03 k/uL Normal 0.00-0.20 [facility] Comment on above: Performed By: #### C DP #### [address] [address] Gear Machinist: Juan Perera MD Abs.Imm.Granulocyte 0.03 k/uL Normal 0.00-0.30 [facility] Comment on above: Performed By: #### C DP #### [address] [address] Gear Machinist: Juan Perera MD Abs.Neutrophil (Seg) 4.63 k/uL Normal 1.50-8.10 [facility] Comment on above: Performed By: #### C DP #### [address] [address] Gear Machinist: Juan Perera MD Basophils/100 WBC (Bld) 0 % Normal 0-2 [facility] Comment on above: Performed By: #### C DP #### [address] [address] Gear Machinist: Juan Perera MD Eosinophils (Bld) [#/Vol] 0.14 10*3/uL Normal 0.00-0.44 [facility] Comment on above: Performed By: #### C DP #### [address] [address] Gear Machinist: Juan Perera MD Eosinophils/100 WBC (Bld) 2 % Normal 1-4 [facility] Comment on above: Performed By: #### C DP #### [address] [address] Gear Machinist: Juan Perera MD Erythrocyte distribution width (RBC) [Ratio] 15.0 % High 11.8-14.4 [facility] Comment on above: Performed By: #### C DP #### [address] [address] Gear Machinist: Juan Perera MD Hematocrit (Bld) [Volume fraction] 32.7 % Low 36.3-47.1 [facility] Comment on above: Performed By: #### C DP #### [address] [address] Gear Machinist: Juan Perera MD Hemoglobin (Bld) [Mass/Vol] 9.9 g/dL Low 11.9-15.1 [facility] Comment on above: Performed By: #### C DP #### [address] [address] Gear Machinist: Juan Perera MD Immature granulocytes (Bld) [#/Vol] 0 % Normal 0 [facility] Comment on above: Performed By: #### C DP #### [address] [address] Gear Machinist: Juan Perera MD Lymphocytes (Bld) [#/Vol] 1.67 10*3/uL Normal 1.10-3.70 [facility] Comment on above: Performed By: #### C DP #### [address] [address] Gear Machinist: Juan Perera MD Lymphocytes/100 WBC (Bld) 22 % Low 24-43 [facility] Comment on above: Performed By: #### C DP #### [address] [address] Gear Machinist: Juan Perera MD MCH (RBC) [Entitic mass] 27.7 pg Normal 25.2-33.5 [facility] Comment on above: Performed By: #### C DP #### [address] [address] Gear Machinist: Juan Preera MD MCHC (RBC) [Mass/Vol] 30.3 g/dL Normal 28.4-34.8 [facility] Comment on above: Performed By: #### C DP #### [address] [address] Gear Machinist: Juan Perera MD MCV (RBC) [Entitic vol] 91.3 fL Normal 82.6-102.9 [facility] Comment on above: Performed By: #### C DP #### [place] [address] Gear Machinist: Juan Perera MD Monocytes (Bld) [#/Vol] 1.00 10*3/uL Normal 0.10-1.20 [facility] Comment on above: Performed By: #### C DP #### [address] [address] Gear Machinist: Juan Perera MD Monocytes/100 WBC (Bld) 13 % High 3-12 [facility] Comment on above: Performed By: #### C DP #### [address] [address] Gear Machinist: Juan Perera MD Neutrophil (Seg) 63 % Normal 36-65 [facility] Comment on above: Performed By: #### C DP #### [address] [address] Gear Machinist: Juan Perera MD NRBC Automated 0.0 per 100 WBC Normal 0.0 [facility] Comment on above: Performed By: #### C DP #### [address] [address] Gear Machinist: Juan Perera MD Platelet mean volume (Bld) [Entitic vol] 9.1 fL Normal 8.1-13.5 [facility] Comment on above: Performed By: #### C DP #### [address] [address] Gear Machinist: Juan Perera MD Platelets (Bld) [#/Vol] 184 10*3/uL Normal 138-453 [facility] Comment on above: Performed By: #### C DP #### [address] [address] Gear Machinist: Juan Perera MD RBC (Bld) [#/Vol] 3.58 10*6/uL Low 3.95-5.11 [facility] Comment on above: Performed By: #### C DP #### [address] [address] Gear Machinist: Juan Perera MD RBC morphology finding Nom (Bld) ANISOCYTOSIS PRESENT Normal [facility] Comment on above: Performed By: #### C DP #### [address] [address] Gear Machinist: Juan Perera MD WBC (Bld) [#/Vol] 7.5 10*3/uL Normal 3.5-11.3 [facility] Comment on above: Performed By: #### C DP #### [address] [address] Gear Machinist: Juan Perera MD Auto Diff Performed NOT REPORTED Normal [facility] Comment on above: Performed By: #### C DP #### [address] [address] Gear Machinist: Juan Perera MD Platelets (Bld) [#/Vol] NOT REPORTED Normal [facility] Comment on above: Performed By: #### C DP #### [facility] [employer] [address] [place], [place] [id number] Gear Machinist: Juan Perera MD WBC Morphology NOT REPORTED Normal [facility] Comment on above: Performed By: #### C DP #### [facility] [address] [place], [place] [id number] Gear Machinist: Juan Perera MD CBC Auto Differentialon 10-0 Basophils (Bld) [#/Vol] 0.04 10*3/uL [place] Basophils/100 WBC (Bld) 1 % 0 - 2 % [place] Differential Type NOT REPORTED [place] Eosinophils (Bld) [#/Vol] 0.19 10*3/uL [place] Eosinophils/100 WBC (Bld) 2 % 1 - 4 % [place] Erythrocyte distribution width (RBC) [Ratio] 15.5 % High 11.8 - 14.4 % [place] Hematocrit (Bld) [Volume fraction] 37.6 % 36.3 - 47.1 % [place] Hemoglobin (Bld) [Mass/Vol] 11.4 g/dL Low 11.9 - 15.1 g/dL [place] Immature granulocytes (Bld) [#/Vol] 10*3/uL [place] Immature granulocytes (Bld) [#/Vol] 0 % 0 [place] Interpretation and review of laboratory results Abnormal [place] Lymphocytes (Bld) [#/Vol] 1.70 10*3/uL [place] Lymphocytes/100 WBC (Bld) 22 % Low 24 - 43 % [place] MCH (RBC) [Entitic mass] 27.8 pg 25.2 - 33.5 pg [place] MCHC (RBC) [Mass/Vol] 30.3 g/dL 28.4 - 34.8 g/dL [place] MCV (RBC) [Entitic vol] 91.7 fL 82.6 - 102.9 fL [place] Monocytes (Bld) [#/Vol] 0.92 10*3/uL [place] Monocytes/100 WBC (Bld) 12 % 3 - 12 % [place] Platelet mean volume (Bld) [Entitic vol] 9.4 fL 8.1 - 13.5 fL [place] Platelets (Bld) [#/Vol] NOT REPORTED [place] Platelets (Bld) [#/Vol] 199 10*3/uL [place] RBC (Bld) [#/Vol] 4.10 10*6/uL 3.95 - 5.11 m/uL [place] RBC morphology finding Nom (Bld) ANISOCYTOSIS PRESENT [place] Segmented neutrophils/100 WBC (Bld) 63 % 36 - 65 % [place] Segs Absolute 4.97 [place] WBC (Bld) [#/Vol] 0.0 10*3/uL 0.0 per 100 WBC [place] WBC (Bld) [#/Vol] 7.8 10*3/uL [place] WBC Morphology NOT REPORTED [place] CBC with Diffon 08-03-2019 Abs. Basophil 0.04 k/uL Normal 0.00-0.20 [facility] Comment on above: Performed By: #### C DP, CP #### [facility] [employer] [address] [place], [place] [id number] Gear Machinist: Juan Perera MD Abs.Imm.Granulocyte <0.03 Normal 0.00-0.30 [facility] Comment on above: Performed By: #### C DP, CP #### [facility] [employer] [address] [place], [place] [phone] Gear Machinist: Juan Perera MD Abs.Neutrophil (Seg) 4.97 k/uL Normal 1.50-8.10 [facility] Comment on above: Performed By: #### C DP, CP #### [address] [address] Gear Machinist: Juan Perera MD Basophils/100 WBC (Bld) 1 % Normal 0-2 [facility] Comment on above: Performed By: #### C DP, CP #### [address] [address] Gear Machinist: Juan Perera MD Eosinophils (Bld) [#/Vol] 0.19 10*3/uL Normal 0.00-0.44 [facility] Comment on above: Performed By: #### C DP, CP #### [address] [address] Gear Machinist: Juan Perera MD Eosinophils/100 WBC (Bld) 2 % Normal 1-4 [facility] Comment on above: Performed By: #### C DP, CP #### [address] [address] Gear Machinist: Juan Perera MD Erythrocyte distribution width (RBC) [Ratio] 15.5 % High 11.8-14.4 [facility] Comment on above: Performed By: #### C DP, CP #### [address] [address] Gear Machinist: Juan Perera MD Hematocrit (Bld) [Volume fraction] 37.6 % Normal 36.3-47.1 [facility] Comment on above: Performed By: #### C DP, CP #### [address] [address] Gear Machinist: Juan Perera MD Hemoglobin (Bld) [Mass/Vol] 11.4 g/dL Low 11.9-15.1 [facility] Comment on above: Performed By: #### C DP, CP #### [address] [address] Gear Machinist: Juan Perera MD Immature granulocytes (Bld) [#/Vol] 0 % Normal 0 [facility] Comment on above: Performed By: #### C DP, CP #### [address] [address] Gear Machinist: Juan Perera MD Lymphocytes (Bld) [#/Vol] 1.70 10*3/uL Normal 1.10-3.70 [facility] Comment on above: Performed By: #### C DP, CP #### [address] [address] Gear Machinist: Juan Perera MD Lymphocytes/100 WBC (Bld) 22 % Low 24-43 [facility] Comment on above: Performed By: #### C DP, CP #### [address] [address] Gear Machinist: Juan Perera MD MCH (RBC) [Entitic mass] 27.8 pg Normal 25.2-33.5 [facility] Comment on above: Performed By: #### C DP, CP #### [address] [address] Gear Machinist: Juan Perera MD MCHC (RBC) [Mass/Vol] 30.3 g/dL Normal 28.4-34.8 [facility] Comment on above: Performed By: #### C DP, CP #### [address] [address] Gear Machinist: Juan Perera MD MCV (RBC) [Entitic vol] 91.7 fL Normal 82.6-102.9 [facility] Comment on above: Performed By: #### C DP, CP #### [address] [address] Gear Machinist: Juan Perera MD Monocytes (Bld) [#/Vol] 0.92 10*3/uL Normal 0.10-1.20 [facility] Comment on above: Performed By: #### C DP, CP #### [address] [address] Gear Machinist: Juan Perera MD Monocytes/100 WBC (Bld) 12 % Normal 3-12 [facility] Comment on above: Performed By: #### C DP, CP #### [address] [address] Gear Machinist: Juan Perera MD Neutrophil (Seg) 63 % Normal 36-65 [facility] Comment on above: Performed By: #### C DP, CP #### [address] [address] Gear Machinist: Juan Perera MD NRBC Automated 0.0 per 100 WBC Normal 0.0 [facility] Comment on above: Performed By: #### C DP, CP #### [place] [address] Gear Machinist: Juan Perera MD Platelet mean volume (Bld) [Entitic vol] 9.4 fL Normal 8.1-13.5 [facility] Comment on above: Performed By: #### C DP, CP #### [address] [address] Gear Machinist: Juan Perera MD Platelets (Bld) [#/Vol] 199 10*3/uL Normal 138-453 [facility] Comment on above: Performed By: #### C DP, CP #### [address] [address] Gear Machinist: Juan Perera MD RBC (Bld) [#/Vol] 4.10 10*6/uL Normal 3.95-5.11 [facility] Comment on above: Performed By: #### C DP, CP #### [address] [address] Gear Machinist: Juan Perera MD RBC morphology finding Nom (Bld) ANISOCYTOSIS PRESENT Normal [facility] Comment on above: Performed By: #### C DP, CP #### [address] [address] Gear Machinist: Juan Perera MD WBC (Bld) [#/Vol] 7.8 10*3/uL Normal 3.5-11.3 [facility] Comment on above: Performed By: #### C DP, CP #### [address] [address] Gear Machinist: Juan Perera MD Auto Diff Performed NOT REPORTED Normal [facility] Comment on above: Performed By: #### C DP, CP #### [address] [address] Gear Machinist: Juan Perera MD Platelets (Bld) [#/Vol] NOT REPORTED Normal [facility] Comment on above: Performed By: #### C DP, CP #### [address] [address] Gear Machinist: Jaun Perera MD WBC Morphology NOT REPORTED Normal [facility] Comment on above: Performed By: #### C DP, CP #### [address] [address] Gear Machinist: Juan Perera MD Comp Metabolic Profon 2018 (cont.) Normal [facility] Comment on above: Result Comment: Aver age GFR for 70 or more years old: 75 mL/min/1.73sq m Chronic Kidney Disease: <60 mL/min/1.73sq m Kidney failure: <15 mL/min/1.73sq m eGFR calculated using average adult body mass. Additional eGFR calculator available at: http://www.[employer]/multiple_crcl_2011.htm Performed By: #### C DP, CP #### [facility] [address] [place] [address] Gear Machinist: Juan Perera MD Albumin [Mass/Vol] 2.7 g/dL Low 3.5-5.2 [facility] Comment on above: Performed By: #### C DP, CP #### [facility] [address] [place] [address] Gear Machinist: Juan Perera MD Albumin/Globulin [Mass ratio] 0.8 {ratio} Low 1.0-2.5 [facility] Comment on above: Performed By: #### C DP, CP #### [facility] [employer] [address] [place] [address] Gear Machinist: Juan Perera MD Alkaline Phos 65 U/L Normal 35-104 [facility] Comment on above: Performed By: #### C DP, CP #### [address] [address] Gear Machinist: Juan Perera MD ALT [Catalytic activity/Vol] 8 U/L Normal 5-33 [facility] Comment on above: Performed By: #### C DP, CP #### [address] [address] Gear Machinist: Juan Perera MD Anion gap [Moles/Vol] 12 mmol/L Normal 9-17 [facility] Comment on above: Performed By: #### C DP, CP #### [facility] [employer] [address] [place] [address] Gear Machinist: Juan Perera MD AST [Catalytic activity/Vol] 13 U/L Normal <32 [facility] Comment on above: Performed By: #### C DP, CP #### [facility] [employer] [address] [place] [address] Gear Machinist: Juan Perera MD Bilirubin Ql (U) 0.41 mg/dL Normal 0.3-1.2 [facility] Comment on above: Performed By: #### C DP, CP #### [address] [address] Gear Machinist: Juna Perera MD Calcium [Mass/Vol] 8.3 mg/dL Low 8.6-10.4 [facility] Comment on above: Performed By: #### C DP, CP #### [address] [address] Gear Machinist: Juan Perera MD Chloride [Moles/Vol] 108 mmol/L High 98-107 [facility] Comment on above: Performed By: #### C DP, CP #### [address] [address] Gear Machinist: Juan Perera MD CO2 [Moles/Vol] 22 mmol/L Normal 20-31 [facility] Comment on above: Performed By: #### C DP, CP #### [address] [address] Gear Machinist: Juan Perera MD Creatinine [Mass/Vol] 0.72 mg/dL Normal 0.50-0.90 [facility] Comment on above: Performed By: #### C DP, CP #### [address] [address] Gear Machinist: Juan Perera MD GFR, Amer >60 Normal >60 [facility] Comment on above: Performed By: #### C DP, CP #### [address] [address] Gear Machinist: Juan Perera MD GFR,non Amer >60 Normal >60 [facility] Comment on above: Performed By: #### C DP, CP #### [address] [place] [address] Gear Machinist: Juan Perera MD Glucose [Mass/Vol] 78 mg/dL Normal 70-99 [facility] Comment on above: Performed By: #### C DP, CP #### [address] [address] Gear Machinist: Juan Perera MD Potassium [Moles/Vol] 3.9 mmol/L Normal 3.7-5.3 [facility] Comment on above: Performed By: #### C DP, CP #### [address] [address] Gear Machinist: Juan Perera MD Protein [Mass/Vol] 6.2 g/dL Low 6.4-8.3 [facility] Comment on above: Performed By: #### C DP, CP #### [address] [address] Gear Machinist: Juan Perera MD Sodium [Moles/Vol] 142 mmol/L Normal 135-144 [facility] Comment on above: Performed By: #### C DP, CP #### [address] [address] Gear Machinist: Juan Perera MD Urea nitrogen [Mass/Vol] 11 mg/dL Normal 8-23 [facility] Comment on above: Performed By: #### C DP, CP #### [address] [address] Gear Machinist: Juan Perera MD BUN/CRE Ratio NOT REPORTED Normal 9-20 [facility] Comment on above: Performed By: #### C DP, CP #### [address] [address] Gear Machinist: Juan Perera MD Staging: NOT REPORTED Normal [facility] Comment on above: Performed By: #### C DP, CP #### [facility] [employer] [address] [place] [address] Gear Machinist: Juan Perera MD Comprehensive Metabolic Pane harsha 08-03-2019 Albumin [Mass/Vol] 2.7 g/dL Low 3.5 - 5.2 g/dL [place] Albumin/Globulin [Mass ratio] 0.8 {ratio} Low [place] ALP [Catalytic activity/Vol] 65 U/L 35 - 104 U/L [place] ALT [Catalytic activity/Vol] 8 U/L 5 - 33 U/L [place] Anion gap [Moles/Vol] 12 mmol/L 9 - 17 mmol/L [place] AST [Catalytic activity/Vol] 13 U/L <32 [place] Bilirubin Ql (U) 0.41 mg/dL 0.3 - 1.2 mg/dL [place] Bun/Cre Ratio NOT REPORTED [place] Calcium [Mass/Vol] 8.3 mg/dL Low 8.6 - 10. 4 mg/dL [place] Chloride [Moles/Vol] 108 mmol/L High 98 - 10 7 mmol/L [place] CO2 [Moles/Vol] 22 mmol/L 20 - 31 mmol/L [place] Creatinine [Mass/Vol] 0.72 mg/dL 0.5 - 0.9 mg/dL [place] GFR >60 >60 mL/min [place] GFR Non- >60 >60 mL/min [place] GFR/1.73 sq M predicted among non-blacks MDRD (S/P/Bld) [Vol rate/Area] NOT REPORTED [place] GFR/1.73 sq M predicted among non-blacks MDRD (S/P/Bld) [Vol rate/Area] [place] Comment on above: Average GFR for 70 o r more years old: 75 mL/min/1.73sq m Chronic Kidney Disease: <60 mL/min/1.73sq m Kidney failure: <15 mL/min/1.73sq m eGFR calculated using average adult body mass. Additional eGFR calculator available at: http://www.[employer]/multiple_crcl_2012.htm Glucose [Mass/Vol] 78 mg/dL 70 - 99 mg/dL [place] Interpretation and review of laboratory results Abnormal [place] Potassium [Moles/Vol] 3.9 mmol/L 3.7 - 5.3 mmol/L [place] Protein [Mass/Vol] 6.2 g/dL Low 6.4 - 8.3 g/dL [place] Sodium [Moles/Vol] 142 mmol/L 135 - 144 mmol/L [place] Urea nitrogen [Mass/Vol] 11 mg/dL 8 - 23 mg/dL [place] XR ABDOMEN (KUB) (SINGLE AP VIEW)on [...] Martin Hope MD 08/03/19 Final result Normal [facility] Nonspecific bowel ga s pattern. [place] Robert, Mhpn Incoming R adiant Results From [employer] - 08/03/2019 9:28 AM EDT EXAMINATION: ONE SUPINE XRAY VIEW(S) OF THE ABDOMEN 08/03/2019 9:06 am COMPARISON: 08/02/2019 HISTORY: ORDERING SYSTEM PROVIDED HISTORY: SBO TECHNOLOGIST PROVIDED HISTORY: SBO Reason for Exam: supine FINDINGS: Nonspecific bowel gas pattern. No pathologic bowel dilatation. Gas throughout the colon. Rectal gas. Enteric tube within the stomach. No organomegaly. No suspicious calcifications. IMPRESSION: Nonspecific bowel gas pattern. [place] EXAMINATION: ONE SUP INE XRAY VIEW(S) OF THE ABDOMEN 08/03/2019 9:06 am COMPARISON: 08/02/2019 HISTORY: ORDERING SYSTEM PROVIDED HISTORY: SBO TECHNOLOGIST PROVIDED HISTORY: SBO Reason for Exam: supine FINDINGS: Nonspecific bowel gas pattern. No pathologic bowel dilatation. Gas throughout the colon. Rectal gas. Enteric tube within the stomach. No organomegaly. No suspicious calcifications. [place] CBC Auto Differentialon 10-0 Basophils (Bld) [#/Vol] 0.03 10*3/uL [place] Basophils/100 WBC (Bld) 0 % 0 - 2 % [place] Differential Type NOT REPORTED [place] Eosinophils (Bld) [#/Vol] 0.17 10*3/uL [place] Eosinophils/100 WBC (Bld) 2 % 1 - 4 % [place] Erythrocyte distribution width (RBC) [Ratio] 15.6 % High 11.8 - 14.4 % [place] Hematocrit (Bld) [Volume fraction] 36.3 % 36.3 - 47.1 % [place] Hemoglobin (Bld) [Mass/Vol] 11.7 g/dL Low 11.9 - 15.1 g/dL [place] Immature granulocytes (Bld) [#/Vol] 0 % 0 [place] Immature granulocytes (Bld) [#/Vol] 0.03 10*3/uL [place] Interpretation and review of laboratory results Abnormal [place] Lymphocytes (Bld) [#/Vol] 1.85 10*3/uL [place] Lymphocytes/100 WBC (Bld) 20 % Low 24 - 43 % [place] MCH (RBC) [Entitic mass] 27.9 pg 25.2 - 33.5 pg [place] MCHC (RBC) [Mass/Vol] 32.2 g/dL 28.4 - 34.8 g/dL [place] MCV (RBC) [Entitic vol] 86.6 fL 82.6 - 102.9 fL [place] Monocytes (Bld) [#/Vol] 1.08 10*3/uL [place] Monocytes/100 WBC (Bld) 12 % 3 - 12 % [place] Platelet mean volume (Bld) [Entitic vol] 9.3 fL 8.1 - 13.5 fL [place] Platelets (Bld) [#/Vol] 215 10*3/uL [place] Platelets (Bld) [#/Vol] NOT REPORTED [place] RBC (Bld) [#/Vol] 4.19 10*6/uL 3.95 - 5.11 m/uL [place] RBC morphology finding Nom (Bld) ANISOCYTOSIS PRESENT [place] Segmented neutrophils/100 WBC (Bld) 66 % High 36 - 65 % [place] Segs Absolute 6.12 [place] WBC (Bld) [#/Vol] 9.3 10*3/uL [place] WBC (Bld) [#/Vol] 0.0 10*3/uL 0.0 per 100 WBC [place] WBC Morphology NOT REPORTED [place] CBC with Diffon 08-02-2019 Abs. Basophil 0.03 k/uL Normal 0.00-0.20 [facility] Comment on above: Performed By: #### L ARAMIS HO, REJEC #### [facility] [employer] [address] [place] [id number] Gear Machinist: Juan Perera MD Abs.Imm.Granulocyte 0.03 k/uL Normal 0.00-0.30 [facility] Comment on above: Performed By: #### L ARAMIS HO, REJEC #### [facility] [place] [address] [employer] Mach[employer]ist: Juan Perera MD Abs.Neutrophil (Seg) 6.12 k/uL Normal 1.50-8.10 [facility] Comment on above: Performed By: #### L ARAMIS HO, REJEC #### [facility] [employer] [address] [place] [id number] [employer] Mach[employer]ist: Juan Perera MD Basophils/100 WBC (Bld) 0 % Normal 0-2 [facility] Comment on above: Performed By: #### L ACWB CDP, REJEC #### [address] [address] [employer] Mach[employer]ist: Juan Perera MD Eosinophils (Bld) [#/Vol] 0.17 10*3/uL Normal 0.00-0.44 [facility] Comment on above: Performed By: #### L ACWB, CDP, REJEC #### [address] [address] [employer] Machinist: Juan Perera MD Eosinophils/100 WBC (Bld) 2 % Normal 1-4 [facility] Comment on above: Performed By: #### L ACWB CDP, REJEC #### [address] [address] [employer] Machinist: Juan Perera MD Immature granulocytes (Bld) [#/Vol] 0 % Normal 0 [facility] Comment on above: Performed By: #### L ACWSandi CDP, REJEC #### [address] [address] Gear Machinist: Juan Perera MD Lymphocytes (Bld) [#/Vol] 1.85 10*3/uL Normal 1.10-3.70 [facility] Comment on above: Performed By: #### L ACWB, CDP, REJEC #### [facility] [employer] [address] [place] [address] Gear Machinist: Juan Perera MD Lymphocytes/100 WBC (Bld) 20 % Low 24-43 [facility] Comment on above: Performed By: #### L ACWB CDP, REJEC #### [address] [address] Gear Machinist: Juan Perera MD Monocytes (Bld) [#/Vol] 1.08 10*3/uL Normal 0.10-1.20 [facility] Comment on above: Performed By: #### L ACWSandi CDP, REJEC #### [address] [address] [employer] Machinist: Juan Perera MD Monocytes/100 WBC (Bld) 12 % Normal 3-12 [facility] Comment on above: Performed By: #### L ACWB CDP, REJEC #### [facility] [employer] [address] [place] [address] Gear Machinist: Juan Perera MD Neutrophil (Seg) 66 % High 36-65 [facility] Comment on above: Performed By: #### L ACWB CDP, REJEC #### [address] [address] Gear Machinist: Juan Perera MD RBC morphology finding Nom (Bld) ANISOCYTOSIS PRESENT Normal [facility] Comment on above: Performed By: #### L ACARAMIS GARY, REJEC #### [address] [address] Gear Machinist: Juan Perera MD Erythrocyte distribution width (RBC) [Ratio] 15.6 % High 11.8-14.4 [facility] Comment on above: Performed By: #### L ACWSandi CDP, REJEC #### [facility] [employer] [address] [place] [address] Gear Machinist: Juan Perera MD Hematocrit (Bld) [Volume fraction] 36.3 % Normal 36.3-47.1 [facility] Comment on above: Performed By: #### L ACWB CDP, REJEC #### [facility] [employer] [address] [place] [address] Gear Machinist: Juan Perera MD Hemoglobin (Bld) [Mass/Vol] 11.7 g/dL Low 11.9-15.1 [facility] Comment on above: Performed By: #### L ARAMIS HO, REJEC #### [address] [address] [employer] Machinist: Juan Perera MD MCH (RBC) [Entitic mass] 27.9 pg Normal 25.2-33.5 [facility] Comment on above: Performed By: #### L ARAMIS HO, REJEC #### [address] [address] Gear Machinist: Juan Perera MD MCHC (RBC) [Mass/Vol] 32.2 g/dL Normal 28.4-34.8 [facility] Comment on above: Performed By: #### L ARAMIS HO, REJEC #### [address] [address] Gear Machinist: Juan Perera MD MCV (RBC) [Entitic vol] 86.6 fL Normal 82.6-102.9 [facility] Comment on above: Performed By: #### L ARAMIS HO, REJEC #### [address] [address] Gear Machinist: Juan Perera MD NRBC Automated 0.0 per 100 WBC Normal 0.0 [facility] Comment on above: Performed By: #### L ARAMIS HO, REJEC #### [address] [address] Gear Machinist: Juan Perera MD Platelet mean volume (Bld) [Entitic vol] 9.3 fL Normal 8.1-13.5 [facility] Comment on above: Performed By: #### L ARAMIS HO, REJEC #### [address] [address] Gear Machinist: Juan Perera MD Platelets (Bld) [#/Vol] 215 10*3/uL Normal 138-453 [facility] Comment on above: Performed By: #### L ACABDIRAHMAN CDP, REJEC #### [facility] [address] [place] [address] Gear Machinist: Juan Perera MD RBC (Bld) [#/Vol] 4.19 10*6/uL Normal 3.95-5.11 [facility] Comment on above: Performed By: #### L ACWB CDP, REJEC #### [facility] [address] [place] [address] Gear Machinist: Juan Perera MD WBC (Bld) [#/Vol] 9.3 10*3/uL Normal 3.5-11.3 [facility] Comment on above: Performed By: #### L ARAMIS HO, REJEC #### [address] [address] Gear Machinist: Juan Perera MD Auto Diff Performed NOT REPORTED Normal [facility] Comment on above: Performed By: #### L ACARAMIS GARY, REJEC #### [address] [address] Gear Machinist: Juan Perera MD Platelets (Bld) [#/Vol] NOT REPORTED Normal [facility] Comment on above: Performed By: #### L ACWSandi CDP, REJEC #### [facility] [employer] [address] [place] [address] Gear Machinist: Juan Perera MD WBC Morphology NOT REPORTED Normal [facility] Comment on above: Performed By: #### L ACWB CDP, REJEC #### [facility] [address] [place] [address] Gear Machinist: Juan Perera MD Comp Metabolic Profon 2018 (cont.) Normal [facility] Comment on above: Result Comment: Aver age GFR for 70 or more years old: 75 mL/min/1.73sq m Chronic Kidney Disease: <60 mL/min/1.73sq m Kidney failure: <15 mL/min/1.73sq m eGFR calculated using average adult body mass. Additional eGFR calculator available at: http://www.[employer]/multiple_crcl_2012.htm Performed By: #### C P #### [address] [address] Gear Machinist: Juan Perera MD Albumin [Mass/Vol] 3.1 g/dL Low 3.5-5.2 [facility] Comment on above: Performed By: #### C P #### [address] [address] Gear Machinist: Juan Perera MD Albumin/Globulin [Mass ratio] 0.9 {ratio} Low 1.0-2.5 [facility] Comment on above: Performed By: #### C P #### [address] [address] Gear Machinist: Juan Perera MD Alkaline Phos 68 U/L Normal 35-104 [facility] Comment on above: Performed By: #### C P #### [address] [address] Gear Machinist: Juan Perera MD ALT [Catalytic activity/Vol] 8 U/L Normal 5-33 [facility] Comment on above: Performed By: #### C P #### [address] [address] Gear Machinist: Juan Perera MD Anion gap [Moles/Vol] 9 mmol/L Normal 9-17 [facility] Comment on above: Performed By: #### C P #### [address] [address] Gear Machinist: Juan Perera MD AST [Catalytic activity/Vol] 11 U/L Normal <32 [facility] Comment on above: Performed By: #### C P #### [address] [address] Gear Machinist: Juan Perera MD Bilirubin Ql (U) 0.39 mg/dL Normal 0.3-1.2 [facility] Comment on above: Performed By: #### C P #### [address] [address] Gear Machinist: Juan Perera MD Calcium [Mass/Vol] 8.6 mg/dL Normal 8.6-10.4 [facility] Comment on above: Performed By: #### C P #### [address] [address] Gear Machinist: Juan Perera MD Chloride [Moles/Vol] 106 mmol/L Normal 98-107 [facility] Comment on above: Performed By: #### C P #### [address] [address] Gear Machinist: Juan Perera MD CO2 [Moles/Vol] 25 mmol/L Normal 20-31 [facility] Comment on above: Performed By: #### C P #### [address] [address] Gear Machinist: Juan Perera MD Creatinine [Mass/Vol] 0.68 mg/dL Normal 0.50-0.90 [facility] Comment on above: Performed By: #### C P #### [address] [address] Gear Machinist: Juan Perera MD GFR, Amer >60 Normal >60 [facility] Comment on above: Performed By: #### C P #### [address] [address] Gear Machinist: Juan Perera MD GFR,non Amer >60 Normal >60 [facility] Comment on above: Performed By: #### C P #### [address] [address] Gear Machinist: Juan Perera MD Glucose [Mass/Vol] 108 mg/dL High 70-99 [facility] Comment on above: Performed By: #### C P #### [address] [address] Gear Machinist: Juan Perera MD Potassium [Moles/Vol] 3.8 mmol/L Normal 3.7-5.3 [facility] Comment on above: Performed By: #### C P #### [address] [address] Gear Machinist: Juan Perera MD Protein [Mass/Vol] 6.4 g/dL Normal 6.4-8.3 [facility] Comment on above: Performed By: #### C P #### [address] [address] Gear Machinist: Juan Perera MD Sodium [Moles/Vol] 140 mmol/L Normal 135-144 [facility] Comment on above: Performed By: #### C P #### [address] [address] Gear Machinist: Juan Perera MD Urea nitrogen [Mass/Vol] 14 mg/dL Normal 8-23 [facility] Comment on above: Performed By: #### C P #### [address] [address] Gear Machinist: Juan Perera MD BUN/CRE Ratio NOT REPORTED Normal 9-20 [facility] Comment on above: Performed By: #### C P #### [address] [address] Gear Machinist: Juan Perera MD Staging: NOT REPORTED Normal [facility] Comment on above: Performed By: #### C P #### [facility] [employer] [address] [place] [address] Gear Machinist: Juan Perera MD Comprehensive Metabolic Pane harsha 08-02-2019 Albumin [Mass/Vol] 3.1 g/dL Low 3.5 - 5.2 g/dL [place] Albumin/Globulin [Mass ratio] 0.9 {ratio} Low [place] ALP [Catalytic activity/Vol] 68 U/L 35 - 104 U/L [place] ALT [Catalytic activity/Vol] 8 U/L 5 - 33 U/L [place] Anion gap [Moles/Vol] 9 mmol/L 9 - 17 mmol/L [place] AST [Catalytic activity/Vol] 11 U/L <32 [place] Bilirubin Ql (U) 0.39 mg/dL 0.3 - 1.2 mg/dL [place] Bun/Cre Ratio NOT REPORTED [place] Calcium [Mass/Vol] 8.6 mg/dL 8.6 - 10. 4 mg/dL [place] Chloride [Moles/Vol] 106 mmol/L 98 - 10 7 mmol/L [place] CO2 [Moles/Vol] 25 mmol/L 20 - 31 mmol/L [place] Creatinine [Mass/Vol] 0.68 mg/dL 0.5 - 0.9 mg/dL [place] GFR >60 >60 mL/min [place] GFR Non- >60 >60 mL/min [place] GFR/1.73 sq M predicted among non-blacks MDRD (S/P/Bld) [Vol rate/Area] [place] Comment on above: Average GFR for 70 o r more years old: 75 mL/min/1.73sq m Chronic Kidney Disease: <60 mL/min/1.73sq m Kidney failure: <15 mL/min/1.73sq m eGFR calculated using average adult body mass. Additional eGFR calculator available at: http://www.[employer]/multiple_crcl_2012.htm GFR/1.73 sq M predicted among non-blacks MDRD (S/P/Bld) [Vol rate/Area] NOT REPORTED [place] Glucose [Mass/Vol] 108 mg/dL High 70 - 99 mg/dL [place] Interpretation and review of laboratory results Abnormal [place] Potassium [Moles/Vol] 3.8 mmol/L 3.7 - 5.3 mmol/L [place] Protein [Mass/Vol] 6.4 g/dL 6.4 - 8.3 g/dL [place] Sodium [Moles/Vol] 140 mmol/L 135 - 144 mmol/L [place] Urea nitrogen [Mass/Vol] 14 mg/dL 8 - 23 mg/dL [place] LACTIC ACID, WHOLE BLOODon 1 Lactic Acid, Whole Blood 1.0 mmol/L 0.7 - 2.1 mmol/L [place] Lactic Acid,Whole Blon 08-02 Lactic Acid,Whole Bl 1.0 mmol/L Normal 0.7-2.1 [facility] Comment on above: Performed By: #### L ARAMIS HO, REJEC #### [employer] [address] [place], [place] [id number] Gear Machinist: Juan Perera MD SPECIMEN REJECTIONon Ordered Test CP [place] Reason for Rejection Unable to perform t esting: Specimen hemolyzed. [place] Specimen source Nom (Unsp spec) INDUCTION BRAZER [place] - NOT REPORTED [place] Specimen Rejectionon Reason for rejection Unable to perform t esting: Specimen hemolyzed. Normal [facility] Comment on above: Performed By: #### L ARAMIS HO, REJEC #### [employer] [address] [place] [address] Gear Machinist: Juan Perera MD Source of sample INDUCTION BRAZER Normal [facility] Comment on above: Performed By: #### L ARAMIS HO, REJEC #### [facility] [address] [place] [address] Gear Machinist: Juan Perera MD Test ordered CP Normal [facility] Comment on above: Performed By: #### L ARAMIS HO, REJEC #### [facility] [address] [place] [address] Gear Machinist: Juan Perera MD ----- NOT REPORTED Normal [facility] Comment on above: Performed By: #### L ARAMIS HO, REJEC #### [facility] [address] [place] [address] Gear Machinist: uJan Perera MD XR ABDOMEN FOR NG/OG/NE TUBE [...] Eduardo Horner MD 08/02/19 Final result Normal [facility] Robert, Mhpn Incoming R adiant Results From [facility]loope/Pacs - 08/02/2019 4:59 AM EDT EXAMINATION: ONE [...] The tube should be advanced 4 cm. [place] EXAMINATION: ONE SUP INE XRAY VIEW(S) [...] system. Very little bowel gas is seen. [place] The tip of the enter ic tube is in the stomach though the proximal side hole is in the esophagus. The tube should be advanced 4 cm. [facility] Mammogram Routine Screeni ng Bilat.on 07-02-2018 [place] Mammogram Routine Screening Bilat. MAMMOGRAM ROUTINE SCREENING [...] lymph nodes are noted bilaterally.I CAD image cloth checker was utilized for this study.IMPRESSION:1. NO [...] reports average 6 to 10%.TARIQ Stoddard #: [id number]: 07/03/2018T: 07/03/2018 Final Dictated by: Chidi Preston MD SDictated DT/TM: 07/03/18 9:47Signed (Electronic Signature): Chidi Preston MD 07/03/18 1:53 pmTechnologist: CMAAssessment: 2-Benign findingRecommendation: Normal interval follow-up [facility] Provider Orderson 06-19-2018 Protein mass conc [id number] [facility] Coding Summaryon 09-03-2017 Coding Summary CODING DATE: 017 [facility] STATUS: Home PAYOR: Medicare ADMIT [...] Waller Revised Date Saved: 06/24/2017 10:08 am [facility] Vital Signs Date Time Vital Sign Value Performing Clinician Facility 10-26-2024 16:51-0500 Body height 152.4 cm [employer] [facility] 10-26-2024 16:51-0500 Body temperature 97.9 [degF] [employer] [facility] [employer] 10-26-2024 16:51-0500 Diastolic blood pressure 59 mm[Hg] [employer] Phone: [facility] 10-26-2024 16:51-0500 Heart rate 76 /min Chano Furlong DO Work Phone: [facility] [employer] 10-26-2024 16:51-0500 Respiratory rate 18 /min Chano Furlong DO Work Phone: [facility] [employer] 10-26-2024 16:51-0500 SaO2% (BldA) [Mass fraction] 96 % Chano Furlong DO Work Phone: [facility] [employer] 10-26-2024 16:51-0500 Systolic blood pressure 114 mm[Hg] Chano Furlong DO Work Phone: [facility] [employer] [facility] 10-20-2024 14:59-0500 Body mass index (BMI) [Ratio] 38.16 kg/m2 Chano Furlong DO Work Phone: [facility] [employer] 10-20-2024 14:59-0500 Body temperature 97.59 [degF] Chano Furlong DO Work Phone: [facility] [employer] [facility] 10-20-2024 14:59-0500 Body weight 88.63 kg Chano Furlong DO Work Phone: [facility] [employer] [facility] 10-20-2024 14:59-0500 Diastolic blood pressure 84 mm[Hg] Chano Furlong DO Work Phone: [facility] [employer] [facility] 10-20-2024 14:59-0500 Heart rate 84 /min Chano Furlong DO Work Phone: [facility] [employer] [facility] 10-20-2024 14:59-0500 Respiratory rate 20 /min Chano Furlong DO Work Phone: [facility] [employer] 10-20-2024 14:59-0500 SaO2% (BldA) [Mass fraction] 94 % Chano Furlong DO Work Phone: [facility] [employer] 10-20-2024 14:59-0500 Systolic blood pressure 132 mm[Hg] Chano Furlong DO Work Phone: [facility] 10-16-2024 15:18-0500 Body mass index (BMI) [Ratio] 38.16 kg/m2 Chano Furlong DO Work Phone: [facility] 10-16-2024 15:18-0500 Body temperature 97.39 [degF] Chano Furlong DO Work Phone: [facility] 10-16-2024 15:18-0500 Body weight 88.63 kg Chano Furlong DO Work Phone: [facility] 10-16-2024 15:18-0500 Diastolic blood pressure 83 mm[Hg] Chano Furlong DO Work Phone: [facility] 10-16-2024 15:18-0500 Heart rate 81 /min Chano Furlong DO Work Phone: [facility] 10-16-2024 15:18-0500 Respiratory rate 20 /min Chano Furlong DO Work Phone: [facility] 10-16-2024 15:18-0500 Systolic blood pressure 156 mm[Hg] Chano Furlong DO Work Phone: [facility] 07-23-2024 13:14-0400 Body height 152.4 cm Kalyan Barboza DPM Work Phone: [facility] 07-23-2024 13:14-0400 Body mass index (BMI) [Ratio] 36.52 kg/m2 Kalyan Barboza DPM Work Phone: [facility] 07-23-2024 13:14-0400 Body weight 84.82 kg Kalyan Barboza DPM Work Phone: [facility] 07-23-2024 13:14-0400 Diastolic blood pressure 82 mm[Hg] Kalyan Barboza DPM Work Phone: [facility] 07-23-2024 13:14-0400 Heart rate 78 /min Kalyan Barboza DPM Work Phone: [facility] 07-23-2024 13:14-0400 Respiratory rate 18 /min Kalyan Jabari DPM Work Phone: [facility] 07-23-2024 13:14-0400 Systolic blood pressure 130 mm[Hg] Kalyan Barboza DPM Work Phone: [facility] 07-02-2024 13:30-0400 Body height 152.4 cm Kalyan Barboza DPM Work Phone: [facility] 07-02-2024 13:30-0400 Body mass index (BMI) [Ratio] 36.52 kg/m2 Kalyan Barboza DPM Work Phone: [facility] 07-02-2024 13:30-0400 Body weight 84.82 kg Kalyan Jabari DPM Work Phone: [facility] 07-02-2024 13:30-0400 Diastolic blood pressure 80 mm[Hg] Kalyan Barboza DPM Work Phone: [facility] 07-02-2024 13:30-0400 Heart rate 83 /min Kalyan Barboza DPM Work Phone: [facility] 07-02-2024 13:30-0400 Systolic blood pressure 129 mm[Hg] Kalyan Barboza DPM Work Phone: [facility] 06-22-2024 14:43-0400 Body height 152.4 cm Gustavo Salas DO Work Phone: [facility] 06-22-2024 14:43-0400 Body mass index (BMI) [Ratio] 36.91 kg/m2 Gustavo Salas DO Work Phone: [facility] 06-22-2024 14:43-0400 Body weight 85.73 kg Gustavo Salas DO Work Phone: [facility] 06-22-2024 14:43-0400 Diastolic blood pressure 70 mm[Hg] Gustavo Salas DO Work Phone: [facility] 06-22-2024 14:43-0400 Heart rate 97 /min Gustavo Salas DO Work Phone: [facility] 06-22-2024 14:43-0400 SaO2% (BldA) [Mass fraction] 95 % Gustavo Salas DO Work Phone: [facility] 06-22-2024 14:43-0400 Systolic blood pressure 120 mm[Hg] Gustavo Salas DO Work Phone: [facility] 02-19-2024 19:31-0400 SaO2% (BldA) [Mass fraction] 95 % APURVA MARIELA [facility] Comment on above: Performed By: #### ELEC #### [facility] ([id number]) [address], [address] [place] [address] 02-17-2024 16:00-0400 Inhaled oxygen flow rate 3.5 L/min DO Gustavo Salas Work Phone: [facility] 02-17-2024 16:00-0400 SaO2% (BldA) [Mass fraction] 90 % DO Gustavo Salas Work Phone: [facility] 02-17-2024 14:02-0400 Body height 152.4 cm DO Gustavo Salas Work Phone: [facility] 02-17-2024 12:32-0400 Diastolic blood pressure 53 mm[Hg] DO Gustavo Salas Work Phone: [facility] 02-17-2024 12:32-0400 Heart rate 96 /min DO Gustavo Salas Work Phone: [facility] 02-17-2024 12:32-0400 Respiratory rate 18 /min DO Gustavo Salas Work Phone: [facility] 02-17-2024 12:32-0400 Systolic blood pressure 116 mm[Hg] DO Gustavo Salas Work Phone: [facility] 02-17-2024 08:00-0400 Body temperature 97.8 [degF] DO Gustavo Salas Work Phone: [facility] 02-17-2024 05:48-0400 Body weight 86.1 kg DO Gustavo Salas Work Phone: [facility] 02-14-2024 16:43-0400 Body height 152.4 cm DO Gustavo Salas Work Phone: [facility] 02-14-2024 16:43-0400 Body temperature 98.3 [degF] DO Gustavo Salas Work Phone: [facility] 02-14-2024 16:43-0400 Body weight 84.9 kg DO Gustavo Salas Work Phone: [facility] 02-14-2024 16:43-0400 Diastolic blood pressure 69 mm[Hg] DO Gustavo Salas Work Phone: [facility] 02-14-2024 16:43-0400 Heart rate 105 /min DO Gustavo Salas Work Phone: [facility] 02-14-2024 16:43-0400 Inhaled oxygen flow rate 4 L/min DO Gustavo Salas Work Phone: [facility] 02-14-2024 16:43-0400 Respiratory rate 20 /min DO Gustavo Salas Work Phone: [facility] 02-14-2024 16:43-0400 SaO2% (BldA) [Mass fraction] 92 % DO Gustavo Salas Work Phone: [facility] 02-14-2024 16:43-0400 Systolic blood pressure 119 mm[Hg] DO Gustavo Salas Work Phone: [facility] 02-10-2024 12:36-0400 Body height 152.4 cm Jenna Engle MD Work Phone: [facility] 02-10-2024 12:36-0400 Body mass index (BMI) [Ratio] 35.15 kg/m2 Jenna Engle MD Work Phone: [facility] 02-10-2024 12:36-0400 Body weight 81.65 kg Jenna Engle MD Work Phone: [facility] 02-10-2024 12:36-0400 Diastolic blood pressure 70 mm[Hg] Jenna Engle MD Work Phone: [facility] 02-10-2024 12:36-0400 Heart rate 96 /min Jenna Engle MD Work Phone: [facility] 02-10-2024 12:36-0400 Systolic blood pressure 120 mm[Hg] Jenna Engle MD Work Phone: [facility] 01-30-2024 13:31-0400 Blood Pressure Location Renae [facility] 01-30-2024 13:31-0400 Body temperature 98.24 [degF] Renae Orzech [facility] 01-30-2024 13:31-0400 Diastolic blood pressure 82 mm[Hg] Renae Orzech [facility] 01-30-2024 13:31-0400 Heart rate 84 /min Renae Orzech [facility] 01-30-2024 13:31-0400 Systolic blood pressure 118 mm[Hg] Renae Orzech [facility] 01-27-2024 13:42-0400 Body height 162.[address] 01-27-2024 13:42-0400 Body mass index (BMI) [Ratio] 32.96 kg/m2 [address] 01-27-2024 13:42-0400 Body weight 87.[address] 01-27-2024 13:42-0400 Diastolic blood pressure 78 mm[Hg] [address] 01-27-2024 13:42-0400 Systolic blood pressure 126 mm[Hg] [address] 01-06-2024 11:39-0400 Diastolic blood pressure 72 mm[Hg] Jenna Engle MD Work Phone: [facility] 01-06-2024 11:39-0400 Systolic blood pressure 128 mm[Hg] Jenna Engle MD Work Phone: [facility] 01-06-2024 11:38-0400 Body height 162.6 cm Jenna Engle MD Work Phone: [facility] 01-06-2024 11:38-0400 Body mass index (BMI) [Ratio] 32.96 kg/m2 Jenna Engle MD Work Phone: [facility] 01-06-2024 11:38-0400 Body weight 87.09 kg Jenna Engle MD Work Phone: [facility] 01-06-2024 11:38-0400 Heart rate 62 /min Jenna Engle MD Work Phone: [facility] 12-09-2023 11:08-0500 Body mass index (BMI) [Ratio] 34.18 kg/m2 Gustavo Salas DO Work Phone: [facility] 12-09-2023 11:08-0500 Body temperature 97.5 [degF] Gustavo Salas DO Work Phone: [facility] 12-09-2023 11:08-0500 Body weight 79.38 kg Gustavo Salas DO Work Phone: [facility] 12-09-2023 11:08-0500 Diastolic blood pressure 72 mm[Hg] Gustavo Salas DO Work Phone: [facility] 12-09-2023 11:08-0500 Heart rate 106 /min Gustavo Salas DO Work Phone: [facility] 12-09-2023 11:08-0500 SaO2% (BldA) [Mass fraction] 96 % Gustavo Salas DO Work Phone: [facility] 12-09-2023 11:08-0500 Systolic blood pressure 122 mm[Hg] Gustavo Salas DO Work Phone: [facility] 08-20-2023 16:32-0400 Heart rate 95 /min DO Gustavo Salas Work Phone: [facility] 08-20-2023 16:32-0400 Respiratory rate 20 /min DO Gustavo Salas Work Phone: [facility] 08-20-2023 12:00-0400 Body temperature 98.1 [degF] DO Gustavo Salas Work Phone: [facility] 08-20-2023 12:00-0400 Diastolic blood pressure 90 mm[Hg] DO Gustavo Salas Work Phone: [facility] 08-20-2023 12:00-0400 SaO2% (BldA) [Mass fraction] 95 % DO Gustavo Salas Work Phone: [facility] 08-20-2023 12:00-0400 Systolic blood pressure 125 mm[Hg] DO Gustavo Salas Work Phone: [facility] 08-20-2023 04:47-0400 Body weight 82.7 kg DO Gustavo Salas Work Phone: [facility] 08-19-2023 13:57-0400 Body height 152.4 cm DO Gustavo Salas Work Phone: [facility] 08-17-2023 20:08-0400 Diastolic blood pressure 68 mm[Hg] DO Gustavo Salas Work Phone: [facility] 08-17-2023 20:08-0400 Heart rate 80 /min DO Gustavo Salas Work Phone: [facility] 08-17-2023 20:08-0400 Respiratory rate 20 /min DO Gustavo Salas Work Phone: [facility] 08-17-2023 20:08-0400 SaO2% (BldA) [Mass fraction] 95 % DO Gustavo Salas Work Phone: [facility] 08-17-2023 20:08-0400 Systolic blood pressure 132 mm[Hg] DO Gustavo Salas Work Phone: [facility] 08-17-2023 16:09-0400 Body temperature 97.4 [degF] DO Gustavo Salas Work Phone: [facility] 08-17-2023 16:07-0400 Body height 152.4 cm DO Gustavo Salas Work Phone: [facility] 08-17-2023 16:07-0400 Body weight 81 kg DO Gustavo Salas Work Phone: [facility] 07-14-2023 13:39-0400 Body temperature 97.8 [degF] DO Gustavo Salas Work Phone: [facility] 07-14-2023 13:39-0400 Diastolic blood pressure 79 mm[Hg] DO Gustavo Salas Work Phone: [facility] 07-14-2023 13:39-0400 Heart rate 80 /min DO Gustavo Salas Work Phone: [facility] 07-14-2023 13:39-0400 Respiratory rate 18 /min DO Gustavo Salas Work Phone: [facility] 07-14-2023 13:39-0400 SaO2% (BldA) [Mass fraction] 94 % DO Gustavo Salas Work Phone: [facility] 07-14-2023 13:39-0400 Systolic blood pressure 110 mm[Hg] DO Gustavo Salas Work Phone: [facility] 07-14-2023 06:00-0400 Body weight 90.1 kg DO Gustavo Salas Work Phone: [facility] 07-11-2023 15:28-0400 Body height 152.4 cm DO Gustavo Salas Work Phone: [facility] 07-10-2023 13:00-0400 Diastolic blood pressure 59 mm[Hg] DO Gustavo Salas Work Phone: [facility] 07-10-2023 13:00-0400 Heart rate 72 /min DO Gustavo Salas Work Phone: [facility] 07-10-2023 13:00-0400 Respiratory rate 18 /min DO Gustavo Salas Work Phone: [facility] 07-10-2023 13:00-0400 SaO2% (BldA) [Mass fraction] 96 % DO Gustavo Salas Work Phone: [facility] 07-10-2023 13:00-0400 Systolic blood pressure 107 mm[Hg] DO Gustavo Salas Work Phone: [facility] 06-17-2023 15:04-0400 Body height 152.4 cm DO Gustavo Salas Work Phone: [facility] 06-17-2023 15:04-0400 Body temperature 98.7 [degF] DO Gustavo Salas Work Phone: [facility] 06-17-2023 15:04-0400 Body weight 80.28 kg DO Gustavo Salas Work Phone: [facility] 06-17-2023 15:04-0400 Diastolic blood pressure 55 mm[Hg] DO Gustavo Maritza Work Phone: [facility] 06-17-2023 15:04-0400 Heart rate 76 /min DO Gustavo Salas Work Phone: [facility] 06-17-2023 15:04-0400 Respiratory rate 19 /min DO Gustavo Salas Work Phone: [facility] 06-17-2023 15:04-0400 SaO2% (BldA) [Mass fraction] 96 % DO Gustavo Salas Work Phone: [facility] 06-17-2023 15:04-0400 Systolic blood pressure 110 mm[Hg] DO Gustavo Salas Work Phone: [facility] 12-31-2022 11:45-0500 Body temperature 97.3 [degF] DO Gustavo aSlas Work Phone: [facility] 12-31-2022 11:45-0500 Diastolic blood pressure 72 mm[Hg] DO Gustavo Salas Work Phone: [facility] 12-31-2022 11:45-0500 Heart rate 78 /min DO Gustavo Salas Work Phone: [facility] 12-31-2022 11:45-0500 Inhaled oxygen flow rate 2 L/min DO Gustavo Salas Work Phone: [facility] 12-31-2022 11:45-0500 Respiratory rate 18 /min DO Gustavo Salas Work Phone: [facility] 12-31-2022 11:45-0500 SaO2% (BldA) [Mass fraction] 92 % DO Gustavo Salas Work Phone: [facility] 12-31-2022 11:45-0500 Systolic blood pressure 114 mm[Hg] DO Gustavo Salas Work Phone: [facility] 12-31-2022 06:00-0500 Body weight 83.5 kg DO Gustavo Salas Work Phone: [facility] 12-27-2022 10:00-0500 Body height 152.4 cm DO Gustavo Maritza Work Phone: [facility] 12-26-2022 23:00-0500 Diastolic blood pressure 60 mm[Hg] DO Gustavo Maritza Work Phone: [facility] 12-26-2022 23:00-0500 Heart rate 77 /min DO Gustavo Maritza Work Phone: [facility] 12-26-2022 23:00-0500 Respiratory rate 18 /min DO Gustavo Salas Work Phone: [facility] 12-26-2022 23:00-0500 SaO2% (BldA) [Mass fraction] 94 % DO Gustavo Salas Work Phone: [facility] 12-26-2022 23:00-0500 Systolic blood pressure 130 mm[Hg] DO Gustavo Salas Work Phone: [facility] 12-26-2022 18:59-0500 Body height 152.4 cm DO Gustavo Salas Work Phone: [facility] 12-26-2022 18:59-0500 Body temperature 98.8 [degF] DO Gustavo Maritza Work Phone: [facility] 12-26-2022 18:59-0500 Body weight 84.3 kg DO Gustavo Salas Work Phone: [facility] 11-22-2022 11:25-0500 Body temperature 97.5 [degF] DO Gustavo Maritza Work Phone: [facility] 11-22-2022 11:25-0500 Diastolic blood pressure 68 mm[Hg] DO Gustavo Maritza Work Phone: [facility] 11-22-2022 11:25-0500 Heart rate 72 /min DO Gustavo Maritza Work Phone: [facility] 11-22-2022 11:25-0500 Respiratory rate 22 /min DO Gustavo Salas Work Phone: [facility] 11-22-2022 11:25-0500 SaO2% (BldA) [Mass fraction] 93 % DO Gustavo aSlas Work Phone: [facility] 11-22-2022 11:25-0500 Systolic blood pressure 146 mm[Hg] DO Gustavoed Salas Work Phone: [facility] 11-22-2022 10:26-0500 Body height 152.4 cm DO Gustavo Salas Work Phone: [facility] 11-22-2022 10:26-0500 Body weight 87.9 kg DO Gustavo Salas Work Phone: [facility] 05-31-2022 15:12-0400 Diastolic blood pressure 75 mm[Hg] DO Gustavo Salas Work Phone: [facility] 05-31-2022 15:12-0400 Heart rate 69 /min DO Gustavo Salas Work Phone: [facility] 05-31-2022 15:12-0400 Respiratory rate 25 /min DO Gustavo Salas Work Phone: [facility] 05-31-2022 15:12-0400 SaO2% (BldA) [Mass fraction] 98 % DO Gustavo Salas Work Phone: [facility] 05-31-2022 15:12-0400 Systolic blood pressure 156 mm[Hg] DO Gustavo Salas Work Phone: [facility] 05-31-2022 11:02-0400 Body height 154.94 cm DO Gustavoed Salas Work Phone: [facility] 05-31-2022 11:02-0400 Body temperature 97.1 [degF] DO Gustavo Salas Work Phone: [facility] 05-31-2022 11:02-0400 Body weight 86.18 kg DO Gustavo Salas Work Phone: [facility] 08-04-2019 08:30-0400 Body Temperature 97.81 [degF] [facility] [place] [facility] 08:30-0400 BP Diastolic 69 mm[Hg] Hayden Watters [facility], [place] 08-04-2019 08:30-0400 BP Systolic 161 mm[Hg] Hayden Watters [facility] 08-04-2019 08:30-0400 Pulse (Heart Rate) 78 /[facility] [place] [facility]-04-2019 08:30-0400 Pulse Oximetry 92 % [facility] [place] 08-04-2019 08:30-0400 Respiratory Rate 18 /min [facility] [place] 08-02-2019 01:00-0400 BMI (Body Mass Index) 34.44 kg/m2 [facility] [place] 08-02-2019 01:00-0400 Body weight 82.67 kg Hayden Watters [facility], [place] 08-02-2019 01:00-0400 Height 154.9 cm [facility] [place] Encounters Encounter Date Encounter Type Care Provider Facility Start: 10-26-2024 End: 10-26-2024 Continuing Care Chano Presley DO Work Phone: [facility] Comment on above: Pneumonia of right l ower lobe due to infectious organism (Primary Dx); Chronic obstructive pulmonary disease with acute exacerbation ([facility]-HCC); Sleep apnea, unspecified type; Moderate episode of recurrent major depressive disorder (CMS-HCC); 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; Closed wedge compression fracture of T6 vertebra with routine healing, subsequent encounter Start: 10-22-2024 End: 10-22-2024 Orders Only Chano Presley DO Work Phone: [facility] Start: 10-20-2024 End: 10-22-2024 Continuing Care Chano Presley DO Work Phone: [facility] Comment on above: Chronic obstructive pulmonary disease with acute exacerbation (CMS-HCC) (Primary Dx); Pneumonia of right lower lobe due to infectious organism; Gastroesophageal reflux disease without esophagitis; Closed wedge compression fracture of T6 vertebra with routine healing, subsequent encounter; Moderate episode of recurrent major depressive disorder ([facility]-HCC); Encephalopathy, unspecified type Start: 10-16-2024 End: 10-16-2024 ambulatory Chano Presley DO [facility] Comment on above: Chronic obstructive pulmonary disease with acute exacerbation (CMS-HCC) (Primary Dx); Sleep apnea, unspecified type; Anxiety; Insomnia, unspecified type; Closed fracture of sixth thoracic vertebra with routine healing, unspecified fracture morphology, subsequent encounter; 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 Start: 10-12-2024 End: 10-14-2024 Clinisync Result Encounter Generic External Data Provider [facility] External Department Unsolicited Start: 10-12-2024 End: 10-14-2024 Clinisync Result Encounter Generic External Data Provider [facility] External Department Unsolicited Start: 10-07-2024 End: 10-09-2024 Clinisync Result Encounter Generic External Data Provider [facility] External Department Unsolicited Start: 10-07-2024 End: 10-09-2024 Clinisync Result Encounter Generic External Data Provider [facility] External Department Unsolicited Start: 10-06-2024 End: 10-06-2024 Patient encounter procedure Gustavo Salas DO Work Phone: [facility] Comment on above: Centrilobular emphys josue (CMS/HCC) [...] Data Provider [facility] External Department Unsolicited Start: 07-23-2024 End: 07-23-2024 Bamboo flowsheet Kalyan Barboza DPM Work Phone: [facility] Start: 07-23-2024 End: 07-23-2024 Bamboo flowsheet Kalyan Barboza DPM Work Phone: [facility] Start: 07-23-2024 End: 07-23-2024 Office outpatient visit 15 minutes Kalyan Barboza DPM Work Phone: [facility] Comment on above: Other specified diso rders of synovium, left ankle and foot (Primary Dx); Right Achilles tendinitis; Venous insufficiency Start: 07-02-2024 End: 07-02-2024 Bamboo flowsheet Kalyan Barboza DPM Work Phone: [facility] Start: 07-02-2024 End: 07-02-2024 Bamboo flowsheet Kalyan Barboza DPM Work Phone: [facility] Start: 07-02-2024 End: 07-02-2024 ambulatory KALYAN BARBOZA Not Available Start: 07-02-2024 End: 07-02-2024 Office outpatient visit 15 minutes Kalyan Barboza DPM Work Phone: [facility] Comment on above: Heel spur, right (Pr imary Dx); Venous insufficiency; Onychomycosis; Toe pain, left; Toe pain, right; Right Achilles tendinitis Start: 06-22-2024 End: 06-22-2024 ambulatory GUSTAVO SALAS Not Available Start: 06-22-2024 End: 06-22-2024 Office outpatient visit 40 minutes Gustavo Salas DO Work Phone: [facility] Comment on above: Stage 3a chronic kid lamont disease (HCC) ([facility]/HCC) (Primary Dx); Interstitial pulmonary disease, unspecified ([facility]/HCC); Primary osteoarthritis involving multiple joints; Morbid (severe) obesity due to excess calories (E66.01); 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 (CMS/HCC); Chronic heart failure with preserved ejection fraction (CMS/HCC); Centrilobular emphysema (CMS/HCC); Neural foraminal stenosis of lumbosacral spine; Failed back surgical syndrome; Mixed hyperlipidemia (CMS/HCC); Acute cystitis without hematuria; Anemia due to stage 3a chronic kidney disease (HCC) ([facility]/HCC) Start: 06-22-2024 End: 06-22-2024 Refdarline Gutierrez [employer]OR Work Phone: [facility] Comment on above: Failed back surgical syndrome; Neural foraminal stenosis of lumbosacral spine Start: 05-22-2024 End: 05-22-2024 ambulatory GUSTAVO SALAS Not Available Start: 05-16-2024 End: 05-16-2024 ambulatory KALYAN BARBOZA Not Available Start: 05-06-2024 End: 05-06-2024 ambulatory GUSTAVO SALAS Not Available Start: 05-06-2024 End: 05-06-2024 ambulatory GUSTAVO SALAS Not Available Start: 04-27-2024 End: 04-27-2024 ambulatory [facility] Start: 04-13-2024 End: 04-13-2024 ambulatory [facility] Start: 04-08-2024 End: 04-08-2024 [facility] Start: 04-02-2024 End: 04-02-2024 ambulatory [facility] Start: 03-30-2024 End: 03-30-2024 ambulatory [facility] Start: 03-18-2024 End: 03-18-2024 [facility] Start: 03-17-2024 End: 03-17-2024 ambulatory [facility] Start: 03-11-2024 End: 03-11-2024 ambulatory [facility] Start: 03-05-2024 End: 03-05-2024 ambulatory TODD Leonard [facility] Start: 03-04-2024 End: 03-04-2024 ambulatory GUSTAVO Person [facility] Start: 03-03-2024 End: 03-03-2024 [facility] Start: 03-02-2024 End: 03-02-2024 ambulatory TODD Leonard [facility] Start: 02-27-2024 End: 02-27-2024 ambulatory TODD Aisha [facility] Start: 02-19-2024 End: 02-26-2024 Emergency department patient visit [facility] Herminio [facility] Start: 02-19-2024 End: 02-25-2024 Evaluation and management of inpatient [facility] Start: 02-19-2024 End: 02-26-2024 Emergency department patient visit [facility] Herminio [facility] Start: 02-14-2024 Non-patient / Non-visit DO David Salas Work Phone: [facility] Work Phone: Start: 02-14-2024 End: 02-17-2024 Evaluation and management of inpatient DO Gustavo Salas Work Phone: [facility] [place] [facility] Work Phone: Start: 02-10-2024 End: 02-10-2024 ambulatory [facility] Start: 02-10-2024 End: 02-10-2024 Office outpatient visit 25 minutes Jenna Engle MD Work Phone: [facility] Comment on above: Shortness of breath; 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; History of PTCA; Essential hypertension; Hyperlipidemia, mixed; Obstructive sleep apnea syndrome; BMI 35.0-35.9,adult; Current smoker; Chronic hypoxemic respiratory failure (Multi); Encounter to discuss test results Start: 02-05-2024 End: 02-05-2024 ambulatory GUSTAVO SALAS Not Available Start: 01-30-2024 End: 01-31-2024 ambulatory Renae X Orzech [facility] Start: 01-30-2024 End: 01-31-2024 ambulatory Renae X Orzech Facility:[facility] Start: 01-30-2024 End: 01-30-2024 Lab Drop off Renae X Orzech [facility] Start: 01-30-2024 End: 01-30-2024 Patient encounter procedure Renae X Orzech [facility] Start: 01-27-2024 End: 01-27-2024 ambulatory [facility] Start: 01-27-2024 End: 01-27-2024 Subsequent hospital visit by physician [facility] Echo/Vasc Room 2 [facility] Comment on above: Shortness of breath Start: 01-13-2024 ambulatory Renae Orallench Facility: [facility] Start: 01-10-2024 End: 01-10-2024 ambulatory GUSTAVO SALAS Not Available Start: 01-06-2024 End: 01-06-2024 Patient encounter procedure DO Gustavo Salas Work Phone: 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; Stage 3b chronic [...] minutes Gustavo Salas DO Work Phone: [facility] Comment on above: SOB (shortness of br [...] type (CMS/HCC) Start: 11-12-2023 Telephone encounter Nirm[facility] Start: 10-31-2023 Chart abstracting Scanning Pro vider External [facility] Start: 10-30-2023 Telephone encounter [facility] Comment on above: Neuro Appt Start: 10-21-2023 End: 10-24-2023 Evaluation and management of inpatient NANCYHerminio BERRY [facility] Start: 10-18-2023 End: 10-24-2023 Evaluation and management of inpatient PAUL WILSONJames MCDONALD [facility] Start: 10-17-2023 End: 10-24-2023 Evaluation and management of inpatient BING TAPIA [facility] Start: 10-15-2023 End: 10-24-2023 Evaluation and management of inpatient ASHLEY MOONEY [facility] Start: 10-14-2023 End: 10-24-2023 Evaluation and management of inpatient CUNNINGHAM E [facility] Start: 10-10-2023 End: 10-24-2023 Evaluation and management of inpatient CUNNINGHAM E [facility] Start: 10-08-2023 End: 10-24-2023 Evaluation and management of inpatient NOE OSEI [facility] Start: 10-06-2023 End: 10-24-2023 Evaluation and management of inpatient SUSANA VELAZQUEZ [facility] Start: 10-06-2023 End: 10-24-2023 Evaluation and management of inpatient FRANCINE YANG [facility] Start: 10-06-2023 End: 10-24-2023 Evaluation and management of inpatient SHEILA RODRIGUEZ [facility] Start: 10-05-2023 End: 10-24-2023 Evaluation and management of inpatient RABBIA L MARIELA [facility] Start: 10-05-2023 End: 10-23-2023 Evaluation and management of inpatient ALI SAHLIEH [facility] Start: 08-17-2023 End: 08-20-2023 Evaluation and management of inpatient DO Gustavo Salas Work Phone: [facility] [place] [facility] Work Phone: Start: 07-10-2023 End: 07-14-2023 Evaluation and management of inpatient DO Gustavo Salas Work Phone: [facility] [place] [facility] Work Phone: Start: 06-17-2023 End: 06-17-2023 Emergency department patient visit DO Gustavo Salas Work Phone: [facility] Work Phone: Start: 04-01-2023 End: 04-26-2023 Patient encounter procedure Gustavo Salas DO Work Phone: [facility] Start: 01-22-2023 ambulatory NARENDRANATH LAKCMMIANDREW . Facility: Start: 12-27-[address] Charlie Gao II Facility:[id number] Start: 12-26-2022 End: 12-31-2022 Evaluation and management of inpatient DO Gustavo Salas Work Phone: [facility] Work Phone: Start: 11-22-2022 End: 11-22-2022 Emergency department patient visit DO Gsutavo Salas Work Phone: [facility] Work Phone: Start: 05-31-2022 End: 05-31-2022 Emergency department patient visit DO Gustavo Salas Work Phone: [facility] Start: 05-03-2022 End: 05-03-2022 ambulatory Jorge A Renetta Other [employer] Other Start: 05-03-2022 Telephone encounter Jorge A Renetta [facility] Start: 04-24-2022 End: 04-24-2022 ambulatory Jorge A Renetta Other [employer] Other Start: 04-24-2022 Telephone encounter Jorge A Renetta [facility] Start: 03-12-[address] Charlie Mondragon II Facility: Start: 03-08-2022 End: 03-08-2022 ambulatory Jorge A Renetta Other [employer] Other Start: 03-08-2022 Telephone encounter Jorge A Renetta [facility] Start: 01-18-2022 End: 01-18-2022 ambulatory Tanya Cesar Other [employer] Other Start: 01-18-2022 Telephone encounter Tanya Cesar [facility] Start: 10-26-2021 End: 10-26-2021 ambulatory Jorge A Renetta Other [employer] Other Start: 10-26-2021 Telephone encounter Jorge A Jackson [facility] Psych[facility] Start: 08-02-2019 End: 08-04-2019 Evaluation and management of inpatient CRYS BARBOZA [facility] Start: 08-01-2019 End: 08-04-2019 Evaluation and management of inpatient Hayden Bueno Work Phone: [facility] Start: 07-03-2018 End: 07-03-2018 Patient encounter Mely Camarillo Facility:[facility] Procedures Date Procedure Procedure Detail Performing Clinician Start: 10-12-2024 BLOOD CULTURE 2 Generic External Data Provider Start: 10-07-2024 Bacteria identified in Urine by [...] Positive Performed By: #### E LEC #### [facility] ([id number]) [address] [place] [address], [address] [place] [address] Start: 02-19-2024 Adult depression screening assessment Chano Presley DO Work Phone: Start: 02-16-2024 Investigation of transfusion reaction DO [...] Positive Performed By: #### [place], [place], [id number], [id number] #### [facility] ([id number]) [address], [address] [place] [address] Start: 10-06-2023 Adult depression screening assessment Amrit [...] 08-04-2019 INITIATE OXYGEN THER APY PROTOCOL CRYS JABARI Start: 08-04-2019 Blood count complete auto&auto difrntl wbc CRYS BARBOZA Start: 08-04-2019 Blood count complete auto&auto difrntl wbc Mahconnord Al Furgani Work Phone: Start: 08-03-2019 MISCELLANEOUS NURSIN G CARE ORDER (SPECIFY) CRYS JABARI Start: 08-03-2019 Radiologic exam abdo men 1 view CRYS JABARI Start: 08-03-2019 INITIATE OXYGEN THER APY PROTOCOL CRYS JABARI Start: 08-03-2019 Radiologic exam abdo men 1 view Nona Blake Work Phone: Start: 08-03-2019 Blood count complete auto&auto difrntl wbc CRYS BARBOZA Start: 08-03-2019 Comprehensive metabo lic panel CRYS JABARI Start: 08-03-2019 Blood count complete auto&auto difrntl wbc Mahconnord Al Furgani Work Phone: Start: 08-03-2019 Comprehensive metabo lic panel Gwenconnormynor Al Furgani Work Phone: Start: 08-02-2019 TELEMETRY MONITORING LA JUAN JOSE JABARI Start: 08-02-2019 Comprehensive metabo lic panel CRYS JABARI Start: 08-02-2019 PREVIOUS SPECIMEN CRYS JABARI Start: 08-02-2019 NURSING COMMUNICATION Aisha HERNANDEZRaza JABARI Start: 08-02-2019 INITIATE OXYGEN THER APY PROTOCOL CRYS JABARI Start: 08-02-2019 Comprehensive metabo lic panel Verenice [...] Richardson Work Phone: Start: 08-02-2019 SPECIMEN REJECTION Rosa Bueno Work Phone: Start: 08-02-2019 Radiologic exam abdo men 1 view CRYS JABARI Start: 08-02-2019 TUBE INSERTION CRYS BRYANT OWN Start: 08-02-2019 Radiologic exam abdo men 1 view Marisol Ojeda Work Phone: Start: 08-02-2019 IP CONSULT TO [facility] SURGERY CRYSRaza BARBOZA Start: 08-02-2019 FULL CODE CRYS BK Hill Start: 08-02-2019 INITIATE OXYGEN THER APY PROTOCOL CRYSRaza BARBOZA Start: 08-01-2019 PATIENT STATUS (DIRECT) CRYS BARBOZA Start: 02-25-2015 End: 03-25-2024 H/O: colostomy Colostomy status Gustavo Salas DO Work Phone: History of percutane ous transluminal coronary angioplasty History of PTCA Jenna Engle MD Work Phone: History of placement of stent for coronary artery disease S/P right coronary artery (RCA) stent placement Renae Ponce Plan of Treatment Date Care Activity Detail Author Start: 05-06-2025 Urine screening for protein Diabetes: Urine Protein Screening [facility] Start: 03-17-2025 Tobacco Screening Tobacco Screening [facility] Start: 02-18-2025 Depression Screening Depression Screening [facility] Start: 01-26-2025 Echocardiography Echocardiogram [facility] Start: 11-05-2024 End: 11-05-2024 Patient encounter procedure 11/05/2024 3:30 PM EST Procedure Visit [facility] [address] [facility] [address] [place] [address] Kalyan Barboza DPM 3006 [facility] 5 [place] [address] [facility] Start: 10-23-2024 Adult BMI Screening Adult BMI Screening [facility] Start: 10-13-2024 End: 10-13-2024 Patient encounter procedure 10/13/2024 2:30 PM EST Office Visit [facility] [address] [place] [phone] Gustavo Salas, DO [address] [place] [address] [facility] Start: 10-08-2024 End: 10-08-2024 Patient encounter procedure 10/08/2024 4:10 PM EST Procedure Visit [facility] [address] [facility] [address] [place] [phone] Kalyan Barboza, DPM [address] [facility] [address] [place] [address] [facility] Start: 10-07-2024 Echocardiography [facility] Start: 10-06-2024 End: 10-06-2024 Patient encounter procedure 10/06/2024 2:30 PM EST Office Visit [facility] [address] [place] [phone] Gustavo Salas, DO [address] [place] [address] [facility] Start: 10-06-2024 Depression Screening Depression Screening [facility] Start: 10-06-2024 Tobacco Screening Tobacco Screening [facility] Start: 09-22-2024 End: 12-23-2024 CBC panel - Blood by Automated count CBC Lab Routine Anemia due to stage 3a chronic kidney disease (HCC) (CMS/HCC) Expected: 09/22/2024 (Approximate), Expires: 12/23/2024 [facility] Work Phone: Comment on above: Expected: 09/22/2024 (Approximate), Expi res: 12/23/2024 Start: 09-22-2024 End: 12-23-2024 Cobalamin (Vitamin B12) [Mass/volume] in Serum or Plasma Vitamin B12 Lab Routine Anemia due to stage 3a chronic kidney disease (HCC) (CMS/HCC) Expected: 09/22/2024 (Approximate), Expires: 12/23/2024 [facility] Comment on above: Expected: 09/22/2024 (Approximate), Expi res: 12/23/2024 Start: 09-22-2024 End: 12-23-2024 Comprehensive metabolic 2000 panel - Serum or Plasma Comprehensive metabolic panel Lab Routine Anemia due to stage 3a chronic kidney disease (HCC) (CMS/HCC) Expected: 09/22/2024 (Approximate), Expires: 12/23/2024 [facility] Comment on above: Expected: 09/22/2024 (Approximate), Expi res: 12/23/2024 Start: 09-22-2024 End: 12-23-2024 Ferritin [Mass/volume] in Serum or Plasma Ferritin Lab Routine Anemia due to stage 3a chronic kidney disease (HCC) (CMS/HCC) Expected: 09/22/2024 (Approximate), Expires: 12/23/2024 [facility] Comment on above: Expected: 09/22/2024 (Approximate), Expi res: 12/23/2024 Start: 09-22-2024 End: 12-23-2024 Iron and Iron binding capacity panel - Serum or Plasma Iron and TIBC Lab Routine Anemia due to stage 3a chronic kidney disease (HCC) (CMS/HCC) Expected: 09/22/2024 (Approximate), Expires: 12/23/2024 [facility] Comment on above: Expected: 09/22/2024 (Approximate), Expi res: 12/23/2024 Start: 09-22-2024 End: 12-23-2024 Lipid 1996 panel - Serum or Plasma Lipid panel Lab Routine Mixed hyperlipidemia (CMS/HCC) Anemia due to stage 3a chronic kidney disease (HCC) (CMS/HCC) Expected: 09/22/2024 (Approximate), Expires: 12/23/2024 [facility] Comment on above: Expected: 09/22/2024 (Approximate), Expi res: 12/23/2024 Start: 09-22-2024 End: 09-22-2024 Patient encounter procedure 09/22/2024 2:00 PM EST Office Visit [facility] [address] [place] [address] Gustavo Salas, [address] [place] [address] [facility] Start: 09-22-2024 End: 12-23-2024 Thyrotropin [Units/volume] in Serum or Plasma TSH Lab Routine Anemia due to stage 3a chronic kidney disease (HCC) ([facility]/HCC) Expected: 09/22/2024 (Approximate), Expires: 12/23/2024 [facility] Comment on above: Expected: 09/22/2024 (Approximate), Expi res: 12/23/2024 Start: 09-22-2024 End: 12-23-2024 Thyroxine (T4) free [Mass/volume] in Serum or Plasma T4, free Lab Routine Anemia due to stage 3a chronic kidney disease (HCC) ([facility]/HCC) Expected: 09/22/2024 (Approximate), Expires: 12/23/2024 [facility] Comment on above: Expected: 09/22/2024 (Approximate), Expi res: 12/23/2024 Start: 09-22-2024 End: 12-23-2024 Triiodothyronine (T3) Free [Mass/volume] in Serum or Plasma T3, free Lab Routine Anemia due to stage 3a chronic kidney disease (HCC) ([facility]/HCC) Expected: 09/22/2024 (Approximate), Expires: 12/23/2024 [facility] Comment on above: Expected: 09/22/2024 (Approximate), Expi res: 12/23/2024 Start: 09-10-2024 End: 09-10-2024 Patient encounter procedure 09/10/2024 2:00 PM EST Procedure Visit [facility] [address] [facility] [address] [place] [phone] Kalyan Barboza, DPM 3006 [facility] 5 [place] [address] [facility] Start: 07-24-2024 End: 07-24-2024 Patient encounter procedure 07/24/2024 3:30 PM EDT Office Visit [facility] [address] [place] [phone] Kalyan Barboza, DPM [address] [address] [facility] Start: 07-24-2024 End: 07-24-2024 Patient encounter procedure 07/24/2024 11:40 AM EDT Procedure Visit [facility] [address] [place] [phone] Kalyan Barboza, DPM [address] [address] [facility] Start: 07-23-2024 End: 07-23-2024 Clinical Support 07/23/2024 1:20 PM EDT Clinical Support [facility] [address] [email or web address] [address] [place] [address] Kalyan Barboza DPM [address] [address] Other specified disorders of synovium, left ankle and foot (Primary Dx); Right Achilles tendinitis; Venous insufficiency [facility] Comment on above: Other specified disorders of synovium, l eft ankle and foot (Primary Dx); Right Achilles tendinitis; Venous insufficiency Start: 07-02-2024 End: 07-02-2024 Patient encounter procedure 07/02/2024 1:20 PM EDT Office Visit [facility] [address] [place] [address] Kalyan Barboza, DPM [address] [address] [facility] Start: 06-28-2024 COVID-19 Vaccine ( season) COVID-19 Vaccine ( season) [employer] Start: 06-28-2024 Influenza vaccination [facility] Start: 04-27-2024 Screening for osteoporosis Bone Density Scan [facility] Start: 04-01-2024 Medicare Annual Wellness (AWV) Medicare Annual Wellness (AWV) [facility] Start: 02-19-2024 [facility] Start: 02-18-2024 [facility] Start: 02-17-2024 [facility] Start: 02-16-2024 Microbial culture of sputum [facility] Start: 02-14-2024 [facility] Start: 02-14-2024 Referral to Mud Jack Nozzleman [facility] Start: 02-14-2024 [facility] Start: 02-14-2024 Hospital admission [facility] Start: 02-14-2024 Bacteria identified in Blood by Culture [facility] Start: 02-14-2024 Bacteria identified in Urine by Culture [facility] Start: 02-14-2024 Blood culture for bacteria, including anaerobic screen Blood Culture [facility] Start: 02-14-2024 Duplex scan of lower limb veins US venous duplex LE RT [facility] Start: 02-14-2024 US Lower extremity vein - right [facility] Start: 02-10-2024 End: 02-10-2024 Patient encounter procedure 02/10/2024 12:30 PM EDT Office Visit [address] [place] [phone] Jenna Engle MD [address] [place] [address] [address] [place] [address] [facility] Start: 01-27-2024 End: 01-27-2024 Patient encounter procedure 01/27/2024 1:30 PM EDT Appointment [address] [place] [phone] [facility] Start: 01-10-2024 End: 01-10-2024 Patient encounter procedure 01/10/2024 2:00 PM EDT Office Visit [facility] [address] [place] [phone] William Gallagher MD [address] [place] [address] [facility] Start: 01-06-2024 End: 01-05-2025 CBC panel - Blood by Automated count CBC Lab Routine Shortness of breath Expected: 01/06/2024 (Approximate), Expires: 01/05/2025 [facility] Work Phone: Comment on above: Expected: 01/06/2024 (Approximate), Expi res: 01/05/2025 Start: 01-06-2024 End: 01-05-2025 Comprehensive metabolic 2000 panel - Serum or Plasma Comprehensive Metabolic Panel Lab Routine Shortness of breath Expected: 01/06/2024 (Approximate), Expires: 01/05/2025 [facility] Work Phone: Comment on above: Expected: 01/06/2024 (Approximate), Expi res: 01/05/2025 Start: 01-06-2024 End: 01-05-2025 Erythrocyte sedimentation rate Sedimentation Rate Lab Routine Shortness of breath Expected: 01/06/2024 (Approximate), Expires: 01/05/2025 [facility] Work Phone: Comment on above: Expected: 01/06/2024 (Approximate), Expi res: 01/05/2025 Start: 01-06-2024 End: 01-05-2025 Natriuretic peptide B [Mass/volume] in Blood B-Type Natriuretic Peptide Lab Routine Shortness of breath Expected: 01/06/2024 (Approximate), Expires: 01/05/2025 [facility] Work Phone: Comment on above: Expected: 01/06/2024 (Approximate), Expi res: 01/05/2025 Start: 01-06-2024 End: 01-05-2026 US Heart Transthoracic Transthoracic Echo Complete Echocardiography Routine Shortness of breath Expected: 01/06/2024 (Approximate), Expires: 01/05/2026 [facility] Service Area Work Phone: Comment on above: Expected: 01/06/2024 (Approximate), Expi res: 01/05/2026 Start: 01-06-2024 End: 01-05-2025 XR Chest 2 Views XR chest 2 views Imaging Routine Shortness of breath Expected: 01/06/2024 (Approximate), Expires: 01/05/2025 [facility] Work Phone: Comment on above: Expected: 01/06/2024 (Approximate), Expi res: 01/05/2025 Start: 12-30-2023 End: 12-30-2023 Patient encounter procedure 12/30/2023 11:15 AM EST Office Visit [facility] [address] [place] [address] Gustavo Salas DO [address] [facility] [address] [place] [address] [facility] Start: 12-16-2023 End: 12-16-2023 Patient encounter procedure 12/16/2023 11:30 AM EST Office Visit [facility] [address] [place] [phone] Yovani Glover PA-C [address] [place] [address] [facility] Start: 12-09-2023 End: 12-09-2024 Bacteria identified in Urine by Culture Urine culture (clean catch) Microbiology Routine Urinary tract bacterial infections Expected: 12/09/2023 (Approximate), Expires: 12/09/2024 [facility] Comment on above: Expected: 12/09/2023 (Approximate), Expi res: 12/09/2024 Start: 12-09-2023 End: 12-09-2024 CBC W Auto Differential panel - Blood CBC and differential Lab Routine Essential hypertension (CMS/HCC) Expected: 12/09/2023 (Approximate), Expires: 12/09/2024 [facility] Work Phone: Comment on above: Expected: 12/09/2023 (Approximate), Expi res: 12/09/2024 Start: 12-09-2023 End: 12-09-2024 Comprehensive metabolic 2000 panel - Serum or Plasma Comprehensive metabolic panel Lab Routine Essential hypertension (CMS/HCC) Expected: 12/09/2023 (Approximate), Expires: 12/09/2024 [facility] Comment on above: Expected: 12/09/2023 (Approximate), Expi res: 12/09/2024 Start: 12-09-2023 End: 12-09-2024 Magnesium [Mass/volume] in Serum or Plasma Magnesium Lab Routine Stage 3a chronic kidney disease (HCC) (CMS/HCC) Expected: 12/09/2023 (Approximate), Expires: 12/09/2024 [facility] Comment on above: Expected: 12/09/2023 (Approximate), Expi res: 12/09/2024 Start: 11-11-2023 End: 11-11-2023 Patient encounter procedure 11/11/2023 9:15 AM EST Office Visit [facility] [address] [place] [address] [address] [place] [address] Jose Martin Galicia MD [address] [place] [address], [address] [place] [address] [facility] Start: 11-05-2023 End: 11-05-2023 Patient encounter procedure 11/05/2023 12:30 PM EST Office Visit [facility] [address] [place] [phone] Yovani Glover PA-C [address] [place], [place] [phone] [facility] Start: 08-20-2023 [facility] Start: 08-19-2023 Stool culture for bacteria Stool Culture [facility] Start: 08-18-2023 Blood chemistry [facility] Start: 08-18-2023 Duplex scan of lower limb veins US venous duplex LE BI [facility] Start: 08-18-2023 [facility] Start: 08-18-2023 Referral to [facility] Start: 08-17-2023 Hospital admission [facility] Start: 08-17-2023 Physical therapy procedure [facility] Start: 08-17-2023 Referral to occupational therapist [facility] Start: 08-17-2023 [facility] Start: 08-17-2023 Bacteria identified in Stool by Culture [facility] Start: 08-17-2023 [facility] Start: 08-17-2023 Bacteria identified in Blood by Culture [facility] Start: 08-17-2023 Blood culture for bacteria, including anaerobic screen Blood Culture [facility] Start: 07-14-2023 [facility] Start: 07-10-2023 Bacteria identified in Blood by Culture Blood Culture [facility] Start: 07-10-2023 Bacteria identified in Urine by Culture Urine Culture [facility] Start: 07-10-2023 Blood culture for bacteria, including anaerobic screen Blood Culture [facility] Start: 07-10-2023 Hospital admission [facility] Start: 02-26-2023 Hemoglobin A1c measurement Diabetes: Hemoglobin A1C [facility] Start: 12-31-2022 [facility] Start: 12-26-2022 Hospital admission [facility] Start: 12-26-2022 Referral to [facility] Start: 12-26-2022 [facility] Start: 12-26-2022 [facility] Start: 08-03-2020 Creatinine monitoring Creatinine monitoring [place], [place] Start: 08-03-2020 Potassium monitoring Potassium monitoring [place], [place] Start: 08-02-2019 Annual Wellness Visit (AWV) Annual Wellness Visit (AWV) [place] Start: 06-28-2019 Influenza vaccination Flu vaccine (#1) [place], [place] Start: 2010 DEXA (modify frequency per FRAX score) DEXA (modify frequency per FRAX score) [place] Start: 2010 Fall Risk Screening [facility]ening [facility] Start: 2010 Pneumococcal 65+ years Vaccine (1 of 2 - PCV13) Pneumococcal 65+ years Vaccine (1 of 2 - PCV13) [place] Start: 1995 Administration of varicella zoster vaccine Zoster (Shingles) Vaccine (1 of 2) [facility] Start: 1995 Breast cancer screen Breast cancer screen [place], [place] Start: 1995 Colon cancer screen colonoscopy Colon cancer screen colonoscopy [place], [place] Start: 1995 Shingles Vaccine (1 of 2) Shingles Vaccine (1 of 2) [place] Start: 1995 Zoster Vaccines (1 of 2) Zoster Vaccines (1 of 2) [facility] Start: 1967 DTaP/Tdap/Td Vaccines (1 - Tdap) DTaP/Tdap/Td Vaccines (1 - Tdap) [facility] Start: 1964 DTaP,Tdap and Td Vaccines (1 - Tdap) DTaP,Tdap and Td Vaccines (1 - Tdap) [facility] Start: 1964 DTaP/Tdap/Td vaccine (1 - Tdap) DTaP/Tdap/Td vaccine (1 - Tdap) [place] Start: 1964 Urine screening for protein Diabetes: Urine Protein Screening [facility] Start: 1963 Adult BMI Follow Up Plan Adult BMI Follow Up Plan [facility] Start: 1963 Diabetes mellitus screening Diabetes Screening [facility] Start: 1963 Hepatitis C screening Hepatitis C Screening [facility] Start: 1955 Glaucoma screening Diabetes: Retinopathy Screening [facility] Start: 1955 Lipid screen Lipid screen [place], [place] Start: 1945 Creatinine measurement Creatinine Level [facility] Start: 1945 Hepatitis C screen Hepatitis C screen [place], [place] Start: 1945 Lipid panel Lipid Panel [facility] Start: 1945 Medicare Annual Wellness Visit [facility] Start: 1945 Potassium measurement Potassium Level [facility] Start: 1945 Tobacco Counseling Tobacco Counseling [facility] Anion gap measurement [place] Bacteria identified in Urine by Culture URINE CULTURE, ROUTINE Lab Routine 10/07/2024 2:58 AM EST [facility] Basophils [#/volume] in Blood by Automated count [facility] Basophils/100 leukoc ytes in Blood by Automated count [facility] BLOOD CULTURE 1 BLOOD CULTURE 1 Lab Routine 09/19/2024 12:22 PM EST [facility] BLOOD CULTURE 2 BLOOD CULTURE 2 Lab Routine 09/19/2024 12:23 PM EST [facility] BLOOD CULTURE 2 BLOOD CULTURE 2 Lab Routine 10/12/2024 7:25 PM EST [facility] Eosinophils [#/volum e] in Blood [facility] Eosinophils/100 leukocytes in Blood by Automated count [facility] Erythrocyte distribu tion width [Ratio] by Automated count [facility] Erythrocytes [#/volu me] in Blood [facility] Hematocrit [Volume Fraction] of Blood [facility] Hemoglobin [Mass/vol ume] in Blood [facility] Initiate Oxygen Ther apy Protocol Initiate Oxygen Therapy Protocol Respiratory Care Routine Daily until discontinued starting 08/02/2019 [place], [place] Comment on above: Daily until discontinued starting 2018 Leukocytes [#/volume ] corrected for nucleated erythrocytes in Blood by Automated coun [facility] Leukocytes [#/volume ] in Blood [facility] Lymphocytes [#/volum e] in Blood by Automated count [facility] Lymphocytes/100 leukocytes in Blood by Automated count [facility] MCH [Entitic mass] b y Automated count [facility] MCHC [Mass/volume] b y Automated count [facility] MCV [Entitic volume] by Automated count [facility] Monocytes [#/volume] in Blood by Automated count [facility] Monocytes/100 leukoc ytes in Blood by Automated count [facility] Neutrophils [#/volum e] in Blood by Automated count [facility] Neutrophils/100 leukocytes in Blood by Automated count [facility] Nucleated erythrocyt es [Presence] in Blood by Automated count [facility] Patient Education [facility] Work Phone: Patient referral [facility] Work Phone: Platelet mean volume [Entitic volume] in Blood by Automated count [facility] Platelets [#/volume] in Blood [facility] End: 08-02-2019 PREVIOUS SPECIMEN PREVIOUS SPECIMEN Lab Routine Once for 1 Occurrences starting 08/02/2019 until 08/02/2019 [facility]: Once for 1 Occurrences starting 08/02/20 19 until 08/02/2019 PREVIOUS SPECIMEN PREVIOUS SPECI MEN Lab Routine 08/02/2019 9:43 AM EDT [facility] complete panel - Urine Urinalysis with microscopic Lab Routine Urinary tract bacterial infections Stage 3a chronic kidney disease (HCC) ([facility]/HCC) Ordered: 12/09/2023 [facility] Comment on above: Ordered: 12/09/2023 End: 01-27-2024 [facility] Service [facility] Work Phone: Comment on above: Once for 1 Occurrences starting 01/27/20 24 until 01/27/2024 Immunizations Immunization Date Immunization Notes Care Provider Napoleon garibay 09-02-2023 Influenza, High-dose , Quadrivalent Nirmala Ida [facility] 09-02-2023 influenza virus vaccine, unspecified formulation Gustavo Salas DO Work Phone: [facility] 08-31-2023 tuberculin skin test ; unspecified formulation Chano Presley DO Work Phone: [facility] 08-21-2023 tuberculin skin test ; unspecified formulation Chano Coteemil DO Work Phone: [facility] 01-07-2023 SARS-COV-2 (COVID-19 ) vaccine, mRNA, spike protein, LNP, bivalent, preservative free, 30 mcg/0.3 mL dose, monserrat-sucrose formulation Gustavo Salas DO Work Phone: [facility] 01-07-2023 tuberculin skin test ; unspecified formulation Chano Presley DO Work Phone: [facility] 12-31-2022 tuberculin skin test ; purified protein derivative solution, intradermal [facility] 12-[facility] tuberculin skin test ; unspecified formulation Chano Presley DO Work Phone: [facility] 07-30-2022 influenza, high dose seasonal, preservative-free Nirmala [facility] 07-30-2022 Influenza, High-dose Seasonal, Quadrivalent, Preservative Free Gustavoed Salas DO Work Phone: [facility] 06-08-2021 pneumococcal polysaccharide vaccine, 23 valent [facility] 03-09-2021 COVID-19 Moderna Tanya Cesar Other [employer] Other 02-10-2021 COVID-19 Moderna Tanya Cesar Other [employer] Other 11-07-2020 influenza, high dose seasonal, preservative-free [facility] 11-07-2020 influenza, seasonal, injectable Jenna Engle MD Work Phone: [facility] Work Phone: 08-04-2020 Seasonal trivalent influenza vaccine, adjuvanted, preservative free [facility] 07-14-2018 influenza, high dose seasonal, preservative-free Jorge A Renetta Other [employer] Other 07-14-2018 influenza virus vaccine, unspecified formulation DO Gustavo Salas Work Phone: [facility] 07-13-2018 Influenza, High-dose , Quadrivalent [facility] 08-02-2017 influenza, high dose seasonal, preservative-free Jorge A Renetta Other [employer] Other 08-02-2017 influenza virus vaccine, unspecified formulation DO Gustavo Salas Work Phone: [facility] 08-01-2017 Influenza, High-dose , Quadrivalent Nirmala Ida [facility] 07-26-2016 pneumococcal conjuga te vaccine, 13 valent Jorge A Renetta Other [employer] Other 07-26-2016 influenza, high dose seasonal, preservative-free Jorge A Renetta Other [employer] Other 07-26-2016 influenza virus vaccine, unspecified formulation DO Gustavo Maritza Work Phone: [facility] 07-25-2016 Influenza, High-dose , Quadrivalent Nirmala Ida [facility] 08-23-2015 influenza, high dose seasonal, preservative-free Jorge A Renetta Other [employer] Other 08-23-2015 influenza virus vaccine, unspecified formulation DO Gustavo Maritza Work Phone: [facility] 08-22-2015 Influenza, High-dose , Quadrivalent Nirmala Ida [facility] 10-28-2014 pneumococcal polysaccharide vaccine, 23 valent Jenna Engle MD Work Phone: [facility] Work Phone: 07-26-2014 influenza, seasonal, injectable Nirmala Ida [facility] 07-08-2014 influenza, injectabl e, quadrivalent, contains preservative Jorge A Renetta Other [facility] 09-28-2013 influenza, injectabl e, quadrivalent, contains preservative Jorge A Renetta Other [facility] 12-04-2010 pneumococcal conjuga te vaccine, 7 valent Jorge A Renetta Other [employer] Other 12-04-2010 pneumococcal Conjuga te, unspecified formulation DO Gustavo Salas Work Phone: [facility] Payers Date Payer Category Payer Medicaid [id number] 2024 Medicare (Managed Care) [facility] MEDICARE [id number] 2024 Medicare O [facility] MEDICARE [id number] 2024 Unknown [id number] 2024 Self-pay [id number] 2023 Private Health Insurance [facility] DUAL COMPLETE [facility] DUAL COMPLETE [id number] 2023-Present [address] [address] [place] [address] [id number] [id number] 2022 Medicare [id number] 1.13.424. [id number] 2021 Medicaid [id number] 1.13.424. [id number] 2018 Medicare [id number] 2017 Private Health Insurance [id number] 2014 Medicaid [id number] 2014 Medicaid MEDICAID [facility] DEPT OF JOB xxxxxxxxxxxx 2014-Present [phone] [address] [place] [address] xxxxxxxxxxxx [id number] [id number] 2014 Medicare [id number] 2014 Medicare MEDICARE MEDICAR E PART A AND B xxxxxxxxxxx 2014-Present [phone] [address] [address] [place] [address] xxxxxxxxxxx [id number]. 2.7.3.463089.315 1945 Unknown [id number] 2.16.840.1.752613.3.579. 2.175 1945 Unknown [id number] 2.16.840.1.327439.3.579. 2.356 1945 Unknown [id number] 2.16.840.1.528326.3.579. 2.356 1945 Unknown [id number] 2.16.840.1.057645.3.579. 2.593 1945 Unknown [id number] 2.16.840.1.449820.3.579. 2.1244 1945 Unknown [id number] 2.16.840.1.410632.3.579. 2.1244 1945 Unknown [id number] 2.16.840.1.367584.3.579. 2.727 1945 Unknown [id number] 2.16.840.1.518910.3.579. 2.727 1945 Unknown [id number] 2.16.840.1.992172.3.579. 2.1286 1945 Unknown [id number] 2.16.840.1.131546.3.579. 2.1285 1945 Unknown [id number] 2.16.840.1.872589.3.579. 2.1285 1945 Unknown [id number] 2.16.840.1.714626.3.579. 2.1285 1945 Unknown [id number] 2.16.840.1.905721.3.579. 2.1285 1945 Unknown [id number] 2.16.840.1.583958.3.579. 2.1285 1945 Unknown [id number] 2.16.840.1.264184.3.579. 2.1285 1945 Unknown [id number] 2.16.840.1.525599.3.579. 2.1285 1945 Unknown [id number] 2.16.840.1.837958.3.579. 2.1285 1945 Unknown [id number] 2.16.840.1.167231.3.579. 2.1285 1945 Unknown [id number] 2.16.840.1.878870.3.579. 2.1285 1945 Unknown [id number] 2.16.840.1.758625.3.579. 2.1285 1945 Unknown [id number] 2.16.840.1.129042.3.579. 2.1285 1945 Unknown [id number] 2.16.840.1.221577.3.579. 2.1285 1945 Unknown [id number] 2.16.840.1.456070.3.579. 2.1285 1945 Unknown [id number] 2.16.840.1.580754.3.579. 2.1286 1945 Unknown [id number] 2.16.840.1.068478.3.579. 2.1286 1945 Unknown [id number] 2.16.840.1.416959.3.579. 2.1286 1945 Unknown [id number] 2.16.840.1.826662.3.579. 2.1286 1945 Unknown [id number] 2.16.840.1.661261.3.579. 2.128 1945 Unknown [id number] 2.16.840.1.873700.3.579. 2.1285 1945 Unknown [id number] 2.16.840.1.787466.3.579. 2.1285 1945 Unknown [id number] 2.16.840.1.265002.3.579. 2.1285 1945 Unknown [id number] 2.16.840.1.380555.3.579. 2.128 1945 Unknown [id number] 2.16.840.1.490941.3.579. 2.1285 1945 Unknown [id number] 2.16.840.1.024723.3.579. 2.128 1945 Unknown [id number] 2.16.840.1.081840.3.579. 2.1285 1945 Unknown [id number] 2.16.840.1.818925.3.579. 2.1285 1945 Unknown [id number] 2.16.840.1.460692.3.579. 2.1285 1945 Unknown [id number] 2.16.840.1.794916.3.579. 2.1285 1945 Unknown [id number] 2.16.840.1.186057.3.579. 2.1285 1945 Unknown [id number] 2.16.840.1.404982.3.579. 2.1286 1945 Unknown [id number] 2.16.840.1.173922.3.579. 2.128 1945 Unknown [id number] 2.16.840.1.278238.3.579. 2.128 1945 Unknown [id number] 2.16.840.1.409222.3.579. 2.128 1945 Unknown [id number] 2.16.840.1.449882.3.579. 2.1285 1945 Unknown [id number] 2.16.840.1.548605.3.579. 2.1285 1945 Unknown [id number] 2.16.840.1.970941.3.579. 2.1285 1945 Unknown [id number] 2.16.840.1.730002.3.579. 2.1258 1945 Unknown [id number] 2.16.840.1.432323.3.579. 2.1258 1945 Unknown [id number] 2.16.840.1.765984.3.579. 2.1258 1945 Unknown [id number] 2.16.840.1.192352.3.579. 2.1258 1945 Unknown [id number] 2.16.840.1.364264.3.579. 2.1258 1945 Unknown [id number] 2.16.840.1.766028.3.579. 2.1258 1945 Unknown [id number] 2.16.840.1.119744.3.579. 2.1258 1945 Unknown [id number] 2.16.840.1.840063.3.579. 2.1258 1945 Unknown [id number] 2.16.840.1.099395.3.579. 2.1259 1945 Unknown [id number] 2.16.840.1.113122.3.579. 2.1259 1945 Unknown [id number] 2.16.840.1.149651.3.579. 2.1259 1945 Unknown [id number] 2.16.840.1.679777.3.579. 2.1246 Medicare [id number] 2.16.840.1.109695.19 Unknown [facility] 2 [id number] Unknown [id number] 2.16840.1.149645.3.579. 2.531 Unknown [id number] 2.16840.1.541502.3.579. 2.531 Social History Date Type Detail Facility Start: 06-23-2012 End: 10-16-2024 Tobacco smoking status UTIS Former smoker [facility] Start: 10-16-1974 End: 10-16-2019 History of tobacco use Current smoker [place] Start: 10-16-1974 End: 10-16-2019 History of tobacco use Cigarette Smoker [place] Start: 06-23-2012 End: 12-08-2020 Alcohol intake No [place] Start: 06-23-2012 Alcohol Comment stopped 20 years [place], [place] Start: 1945 Sex Assigned At Not on file [place] Start: 1945 Sex Assigned At Female F [facility] Start: 10-06-2023 End: 12-04-2023 Tobacco smoking status RUST Smokes tobacco daily [facility] Start: 12-08-2020 End: 10-06-2023 Cigarettes smoked current (pack per day) - Reported 0.5 [facility] Start: 10-06-2023 End: 10-16-2024 Tobacco use and exposure Smokeless tobacco non-user [facility] Start: 10-18-2023 End: 10-16-2024 Alcohol intake Lifetime non-drinker (finding) [facility] How often to you hav e a drink containing alcohol? Never [facility] How many standard drinks containing alcohol do you have on a typical day? Patient does not drink [facility] History of tobacco use Passive smoker [facility] Start: 08-23-2023 Tobacco Comment [facility]W [noted 02/25 05/19] : Former smoker ; quit date 01/26/2022 [facility] Start: 03-23-2023 Alcohol Comment caffeine 2-3 c ups/day; pepsi 2 cans/day [facility] Start: 12-27-2023 End: 02-10-2024 Exposure to SARS-CoV-2 (event) Not sure [facility] Start: 01-30-2024 Tobacco smoking status Light t obacco smoker (finding) [facility] Start: 02-10-2024 Tobacco smoking stat us NHIS Occasional tobacco smoker [facility] Work Phone: Has the [employer] or [employer] threatened to shut off services in your home in past 12Mo No [facility] Start: 04-08-2019 Sex Female (finding) [facility] Medical Equipment Procedure Code Equipment Code Equipment Origin al Text Equipment Identifier Dates CL CLOSURE DEVIC E EXOSEAL 6F FDA Start: 04-29-2019 CL STENT KELLY 2.75 X 23 FDA Start: 04-29-2019 Orthopaedic bone screw, non-bioabsorbable, non-sterile [id number] FDA Start: 09-02-2020 Femur nail, sterile ([id number] FDA Start: 09-02-2020 Spiral blade [id number] FDA Start: 09-02-2020 CL CLOSURE DEVIC E [...] progress towards goal: lists sent to daughter Personal health goal Comment on above: Formatting of this n ote might be different from the original. Evaluation of progress towards goal: Patient plans for a safe discharge. Functional Status Date Assessment Result Facility 02-17-2024 Functional status 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 Baseline [facility] Work Phone: 02-14-2024 Functional status Patient Not at Baseline [facility] Work Phone: 01-30-2024 Functional Status N/A [facility] 08-20-2023 Functional status Patient at Baseline [facility] Work Phone: 07-14-2023 Functional status Patient at Baseline [facility] Work Phone: 12-31-2022 Functional status Patient Not at Baseline [facility] Work Phone: Mental Status Date Assessment Result Facility 02-17-2024 Cognitive function Cognitive Sta tus Patient at Baseline [facility] Work Phone: 02-14-2024 Cognitive function Cognitive Sta tus Patient at Baseline [facility] Work Phone: 08-20-2023 Cognitive function Cognitive Sta tus Patient at Baseline [facility] Work Phone: 07-14-2023 Cognitive function Cognitive Sta tus Patient at Baseline [facility] Work Phone: 12-31-2022 Cognitive function Cognitive Sta tus Patient at Baseline [facility] Work Phone: Clinical Notes 01-18-2022 to 10-26-2024 Chano Presley, DO - 10/26/2024 4:50 PM Yesy Field Kerashantal, DO - 10/20/2024 2:59 PM Yesy Field Kerashantal, DO - 10/16/2024 3:17 PM Ashleigh Salas, DO - 10/06/2024 2:30 PM EST Note Date & Type Note Facility 10-26-2024 History of Present illness Narrative Patient Name: Gera Perdue Date of : 1945 Date of Service: 10/26/2024 Facility: [facility] Type of Visit: Skilled Visit Subjective Gera Perdue is a 78 y.o. female seen today at custodial facility for therapy visit. Gera is participating in therapy. Her pain is better but still using pain medications. Her insurance is cutting her October 28. She will be discharged with home health. She had x-rays done but no compression fractures seen. Allergies: Aspirin, Oxycodone, and Oxycodone-acetaminophen Code Status: FULL CODE BP 114/59 Pulse 76 Temp 36.6 C (97.9 F) Resp 18 Ht 152.4 cm (5') SpO2 96% BMI 38.16 kg/m Physical Exam Vitals reviewed. Constitutional: General: She is not in acute distress. Appearance: She is obese. She is not ill-appearing. Comments: Patient seen in therapy HENT: Head: Normocephalic. Eyes: General: No scleral icterus. Extraocular Movements: Extraocular movements intact. Conjunctiva/sclera: Conjunctivae normal. Cardiovascular: Rate and Rhythm: Normal rate and regular rhythm. Pulses: Normal pulses. Heart sounds: Normal heart sounds. No murmur heard. Pulmonary: Effort: Pulmonary effort is normal. Breath sounds: Examination of the right-upper field reveals decreased breath sounds. Examination of the left-upper field reveals decreased breath sounds. Examination of the right-middle field reveals decreased breath sounds. Examination of the left-middle field reveals decreased breath sounds. Examination of the right-lower field reveals decreased breath sounds and wheezing. Examination of the left-lower field reveals decreased breath sounds and wheezing. Decreased breath sounds and wheezing present. No rhonchi or rales. Comments: Faint expiratory wheeze b/l bases Musculoskeletal: Cervical back: Neck supple. Thoracic back: Tenderness present. Right lower leg: No edema. Left lower leg: No edema. Lymphadenopathy: Cervical: No cervical adenopathy. Neurological: General: No focal deficit present. Mental Status: She is alert and oriented to person, place, and time. Psychiatric: Mood and Affect: Mood normal. Behavior: Behavior normal. Thought Content: Thought content normal. Judgment: Judgment normal. Summary / Assessment / Plan 1. Pneumonia of right lower lobe due to infectious organism 2. Chronic obstructive pulmonary disease with acute exacerbation (CMS-HCC) 3. Sleep apnea, unspecified type 4. Moderate episode of recurrent major depressive disorder (CMS-HCC) 5. 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 Closed wedge compression fracture of T6 vertebra with routine healing, subsequent encounter Ok to discharge with home health. May take home pain medications. Follow up with PCP in 7-14 days. She had normal x-rays here so if she does have a wedge compression fracture it isn't likely significant. She should follow up with PCP upon discharge for further management. All medications reviewed and are medically necessary. ELECTRONICALLY SIGNED BY: Chano Presley DO documented in this encounter [place] 10-20-2024 History of Present illness Narrative Patient Name: Gera Perdue Date of : 1945 Date of Service: 10/20/2024 Facility: [facility] Type of Visit: Skilled Visit Subjective Gera Perdue is a 78 y.o. female seen today at custodial facility for therapy visit. Gera therapy and is getting stronger. She is still in a lot of pain. Her daughter was wondering about a rib fusion . She is not a good historian thinks she remembers when she hurt her back. She was cleaning her end table felt a sudden pain. It was just before she went to the emergency room. From the hospital records they mentioned they chronic compression fracture. We did request records for the x-ray but slow if dedicated x-ray to thoracic spine sent. It was a chest x-ray that mentioned normal thoracic spine. She said her pain is in the lower thoracic spine but the documentation from the hospital says it is T6. She does have b/l flank pain. She is using percocet but said she used vicodin in the past and it worked better. The [employer] saw her and her med list from home was much different than here. She was taking wellbutrin, paxil, plavix, trelegy, protonix and vitamin D. She says the trazodone helped with sleep. I did speak with the daughter who is her POA and the patient gave consent for me to call. She said she was in and out of the emergency room 3 or 4 times in the last month with back pain and COPD issues. It was only this last visit that they kept her in the hospital. Allergies: Aspirin, Oxycodone, and Oxycodone-acetaminophen Code Status: FULL CODE BP 132/84 Pulse 84 Temp 36.4 C (97.6 F) Resp 20 Wt 88.6 kg (195 lb 6.4 oz) SpO2 94% PF (!) 3 L/min BMI 38.16 kg/m Physical Exam Vitals reviewed. Constitutional: General: She is not in acute distress. Appearance: She is obese. She is not ill-appearing. Comments: In WC in room on computer Eyes: General: No scleral icterus. Extraocular Movements: Extraocular movements intact. Conjunctiva/sclera: Conjunctivae normal. Cardiovascular: Rate and Rhythm: Normal rate and regular rhythm. Pulses: Normal pulses. Heart sounds: Normal heart sounds. No murmur heard. Pulmonary: Effort: Pulmonary effort is normal. Breath sounds: Examination of the right-upper field reveals decreased breath sounds. Examination of the left-upper field reveals decreased breath sounds. Examination of the right-middle field reveals decreased breath sounds. Examination of the left-middle field reveals decreased breath sounds. Examination of the right-lower field reveals decreased breath sounds. Examination of the left-lower field reveals decreased breath sounds. Decreased breath sounds present. No wheezing, rhonchi or rales. Musculoskeletal: Cervical back: Neck supple. Thoracic back: Tenderness present. Neurological: General: No focal deficit present. Mental Status: She is alert and oriented to person, place, and time. Psychiatric: Mood and Affect: Mood normal. Behavior: Behavior normal. Thought Content: Thought content normal. Judgment: Judgment normal. Summary / Assessment / Plan 1. Chronic obstructive pulmonary disease with acute exacerbation ([facility]) 2. Pneumonia of right lower lobe due to infectious organism 3. Gastroesophageal reflux disease without esophagitis 4. Closed wedge compression fracture of T6 vertebra with routine healing, subsequent encounter 5. Moderate episode of recurrent major depressive disorder ([facility]) 6. Encephalopathy, unspecified type I am going to check an x-ray of her thoracic and lumbar spine through the x-ray service here at the facility since we have been unable to get the records. She may need to see a neurosurgeon for kyphoplasty. She was seen by the nurse practitioner and there were medication changes. She was supposed to be taking Plavix, Wellbutrin, pantoprazole and Paxil. She also said she was taking the DuoNebs 3 times a day at home. She is just getting him as needed here. She also said the Percocet is not working well for her. She said she took like it in the past and that worked better for her. I will switch her Percocet to Vicodin 5-325 1 every 6 hours as needed for pain. Continue therapy to reach maximum improvement. ELECTRONICALLY SIGNED BY: Chano Presley DO documented in this encounter [facility] 10-16-2024 History of Present illness Narrative Patient Name: Gera Perdue Date of : 1945 Date of Service: 10/16/2024 Facility: [facility] Type of Visit: Admission H&P Subjective Gera Perdue is a 78 y.o. female seen today at custodial facility for admission H&P. Gera presents to [facility] for therapy. She was recently admitted to the [facility] for a COPD exacerbation and back pain. She had a recent T6 compression fracture of her vertebrae. She is having significant pain from that. She is currently taking oxycodone every 6 hours as needed. She was also getting morphine in the hospital. She does not think she saw any specialist regarding surgical repair such as a kyphoplasty. She is not a very good historian. She thinks she had heart attack and has had a cardiac catheterization and stent. She had colon surgery but not sure why. She thinks it was for diverticulitis. She did have a colostomy temporarily and then it was reversed. She is having trouble sleeping due to the pain. She normally takes melatonin 10 mg at home. She would like something for sleep. Past Medical History: Diagnosis Date Acute respiratory failure ([facility] 10/05/2023 Chronic kidney disease (CKD), stage III (moderate) ([facility]) Compression fracture of C7 vertebra ([facility]) 10/18/2023 COPD (chronic obstructive pulmonary disease) ([facility]) Depression Eczema GERD (gastroesophageal reflux disease) Hyperlipidemia Hypertension MRSA bacteremia 10/15/2023 Osteoarthritis Pulmonary hypertension ([facility]) Shortness of breath 02/19/2024 Sleep apnea TIA (transient ischemic attack) Past Surgical History: Procedure Laterality Date BRONCHOSCOPY ALVEOLAR LAVAGE N/A 02/24/2024 Performed by Elsa Quinonez MD at [facility] No family history on file. Allergies: Aspirin, Oxycodone, and Oxycodone-acetaminophen Code Status: DNC-A The following portions of the patient's history were reviewed and updated as appropriate: allergies, current medications, past family history, past medical history, past social history, past surgical history, problem list, and medication reconciliation was completed including current medication and post discharge medication. Review of Systems Objective BP 156/83 Pulse 81 Temp 36.3 C (97.4 F) Resp 20 Wt 88.6 kg (195 lb 6.4 oz) BMI 38.16 kg/m Physical Exam Vitals reviewed. Constitutional: General: She is in acute distress (mild due to pain). Appearance: She is obese. HENT: Head: Normocephalic. Eyes: General: No scleral icterus. Extraocular Movements: Extraocular movements intact. Conjunctiva/sclera: Conjunctivae normal. Cardiovascular: Rate and Rhythm: Normal rate and regular rhythm. Pulses: Normal pulses. Heart sounds: Normal heart sounds. No murmur heard. Pulmonary: Effort: Pulmonary effort is normal. No respiratory distress. Breath sounds: No stridor. Examination of the right-upper field reveals decreased breath sounds. Examination of the left-upper field reveals decreased breath sounds. Examination of the right-middle field reveals decreased breath sounds. Examination of the left-middle field reveals decreased breath sounds. Examination of the right-lower field reveals decreased breath sounds. Examination of the left-lower field reveals decreased breath sounds. Decreased breath sounds present. No wheezing, rhonchi or rales. Comments: Wearing O2 Abdominal: General: Bowel sounds are normal. Palpations: Abdomen is soft. Tenderness: There is no abdominal tenderness. Musculoskeletal: Cervical back: Neck supple. Right lower le+ Pitting Edema present. Left lower le+ Pitting Edema present. Lymphadenopathy: Cervical: No cervical adenopathy. Neurological: General: No focal deficit present. Mental Status: She is alert and oriented to person, place, and time. Psychiatric: Attention and Perception: Attention normal. Mood and Affect: Mood and affect normal. Speech: Speech normal. Behavior: Behavior normal. Behavior is cooperative. Thought Content: Thought content normal. Cognition and Memory: She exhibits impaired recent memory and impaired remote memory. Judgment: Judgment normal. Comments: Poor historian when asked about medical history Summary / Assessment / Plan 1. Chronic obstructive pulmonary disease with acute exacerbation ([facility]) 2. Sleep apnea, unspecified type 3. Anxiety 4. Insomnia, unspecified type 5. Closed fracture of sixth thoracic vertebra with routine healing, unspecified fracture morphology, subsequent encounter 6. 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 Continue medications for the hospital. She has a DNR comfort care-arrest. I am going to add trazodone 100 mg at bedtime for insomnia and increase her melatonin to 10 mg. Continue oxygen. Fair to good rehab potential. Plans on going home when able to. Continue oxycodone for pain and I am going to add Lidoderm 4% patch every 12 hours as needed. Limit 1 per day. ELECTRONICALLY SIGNED BY: Chano Presley DO documented in this encounter [facility] 10-06-2024 History of Present illness Narrative Images from the original note were not included. Subjective Patient ID: Gera Perdue is a 78 y.o. female who presents for Hospital Follow-up. HPI Review of Systems Objective Physical Exam Assessment/Plan Problem List Items Addressed This Visit Failed back syndrome COPD (chronic obstructive pulmonary disease) ([facility]) - Primary Foraminal stenosis of lumbar region NO show documented in this encounter [facility] 07-23-2024 History of Present illness Narrative Patient: Gera Perdue : 1945 PCP: Gustavo Salas DO SUBJECTIVE Patient presents today for follow up of right Achilles and retrocalcaneal bursa. Pt has had previous treatment of 1st steroid injection, nsaids, with positive relief. Pt states current pain on a 1-10 scale is a 0-1 Pt presents to day for follow up tx. Positive history of venous stasis Patient presents with hx of capsulitis and synovitis to the left ankle joint synovium in the past with steroid injections with minimal improvement and rates pain a 6 /10 Allergies: Allergies Allergen Reactions Aspirin Other Reaction(s): Mental Status Change Acetaminophen GI intolerance Oxycodone GI intolerance Oxycodone-Acetaminophen GI intolerance Past Medical History: Past Medical History: Diagnosis Date Abdominal hernia Acute hip pain 03/25/2024 ARTURO (acute kidney injury) ([facility]) 10/05/2023 Anticoagulated 08/02/2019 Anxiety Arthritis At risk for falls Attention to colostomy ([facility]) 05/27/2014 Carotid stenosis Carotid stenosis, bilateral 03/25/2024 Chronic respiratory failure with hypoxia ([facility]) 01/06/2024 Chronic ulcer of left foot with fat layer exposed ([facility]) Closed head injury 03/25/2024 Closed intertrochanteric fracture of left hip ([facility]) 03/25/2024 Cognitive communication deficit 12/31/2022 Colon polyps Colostomy status ([facility]) 02/25/2015 Constipation Contusion of hip 03/25/2024 COPD (chronic obstructive pulmonary disease) ([facility]) COPD with asthma overlap Cough with expectoration 01/06/2024 Decubitus ulcer of left buttock, stage 1 03/25/2024 Depression ([facility]) Dermatitis Diabetic neuropathy ([facility]) 03/25/2024 Difficulty in walking, not elsewhere classified 08/20/2023 Diverticulitis of intestine, part unspecified, without perforation or abscess without bleeding 12/31/2022 Diverticulosis Encephalopathy Essential tremor 03/25/2024 Facet arthritis of lumbosacral region 03/25/2024 Failed back surgical syndrome Fall Falls frequently 08/20/2023 Female incontinence Frequent UTI 01/06/2024 GERD (gastroesophageal reflux disease) Heart disease History of diverticulitis 02/25/2015 HLD (hyperlipidemia) ([facility]) HTN (hypertension) ([facility]) Impaired mobility and ADLs 03/25/2024 Inability to perform activities of daily living 03/25/2024 Incisional hernia without obstruction or gangrene Insomnia Intertrigo 12/31/2022 Intrinsic (allergic) eczema 08/21/2023 Leukocytosis 03/25/2024 Longstanding persistent atrial fibrillation ([facility]) 08/02/2019 Lower extremity edema Major depressive disorder, recurrent, unspecified ([facility]) 12/31/2022 Microcytic anemia 01/06/2024 Mild congestive heart failure ([facility]) 03/25/2024 Muscle weakness (generalized) 12/31/2022 Nausea and vomiting 03/25/2024 Neck pain Nicotine dependence, unspecified, uncomplicated 12/31/2022 Nutritional deficiency, unspecified 08/27/2023 Obesity Obesity OM (onychomycosis) Osteoarthritis of left hip 03/25/2024 Osteoporosis ([facility]) Osteoporosis ([facility]) Personal history of transient ischemic attack (TIA), and cerebral infarction without residual deficits 12/31/2022 Physical deconditioning 03/25/2024 Plantar verruca Pneumonia of right lower lobe due to infectious organism 02/19/2024 Polyneuropathy, unspecified 08/20/2023 Pulmonary hypertension ([facility]) 12/31/2022 S/P right coronary artery (RCA) stent placement S/P total left hip arthroplasty Sinus tarsi syndrome of left foot Sleep apnea Small bowel obstruction ([facility]) 08/01/2019 Smoker SOB (shortness of breath) Speech abnormality 03/25/2024 Spinal stenosis Stented coronary artery 03/25/2024 TIA (transient ischemic attack) 03/2020 hospitalization Tobacco abuse Tremor, unspecified 12/31/2022 Umbilical hernia 12/31/2022 Unspecified fracture of left femur, sequela 12/31/2022 Unspecified lack of coordination 12/31/2022 Vitamin D deficiency 12/31/2022 Medications: Current Outpatient Medications: acetaminophen (Tylenol) 500 MG tablet, Take 1 tablet by mouth every 8 (eight) hours if needed., Disp: , Rfl: albuterol HFA (Ventolin HFA) 90 mcg/act inhaler, Inhale 2 puffs every 4 (four) hours if needed for wheezing or shortness of breath, Disp: 8 g, Rfl: 5 alendronate (Fosamax) 70 MG tablet, Take 1 tablet (70 mg) by mouth every 7 (seven) days Take in the morning with a full glass of water, on an empty stomach, and do not take anything else by mouth or lie down for the next 30 min., Disp: 4 tablet, Rfl: 11 atorvastatin (Lipitor) 40 MG tablet, Take 1 tablet (40 mg) by mouth Daily, Disp: 90 tablet, Rfl: 3 buPROPion XL (Wellbutrin XL) 300 MG 24 hr tablet, TAKE 1 TABLET BY MOUTH IN THE AM, Disp: 90 tablet, Rfl: 3 calcium carbonate 1500 (600 Ca) MG tablet, Take 1 tablet by mouth every 12 (twelve) hours., Disp: , Rfl: cholecalciferol (Vitamin D-3) 50 MCG (2000 UT) capsule, Take 1 capsule (50 mcg) by mouth in the morning., Disp: 90 capsule, Rfl: 3 clopidogrel (Plavix) 75 MG tablet, Take 1 tablet (75 mg) by mouth 1 (one) time each day at the same time, Disp: 90 tablet, Rfl: 3 doxycycline (Vibramycin) 100 MG capsule, TAKE 1 CAPSULE BY MOUTH 2 TIMES A DAY FOR 7 DAYS, Disp: , Rfl: famotidine (Pepcid) 40 MG tablet, Take 0.5 tablets (20 mg) by mouth Daily, Disp: 90 tablet, Rfl: 2 Btkwboypdwc-Vsbgahsiz-Xeptme (Trelegy Ellipta) 100-62.5-25 MCG/ACT aerosol powder , Inhale 1 puff in the morning., Disp: 1 each, Rfl: 3 Vzhrytggyia-Icxzonacs-Dkwxqq (Trelegy Ellipta) 200-62.5-25 MCG/ACT aerosol powder , Inhale 1 puff Daily, Disp: , Rfl: furosemide (Lasix) 40 MG tablet, 1 1/2 tab=60 mg once daily, Disp: 135 tablet, Rfl: 3 furosemide (Lasix) 40 MG tablet, Take 1 tablet (40 mg) by mouth Daily, Disp: 30 tablet, Rfl: 11 ipratropium-albuterol (Duo-Neb) 0.5-2.5 mg/3 mL nebulizer solution, Take 3 mL by nebulization every 12 (twelve) hours., Disp: 180 mL, Rfl: 3 levoFLOXacin (Levaquin) 500 MG tablet, Take 500 mg by mouth in the morning., Disp: , Rfl: lisinopril 5 MG tablet, Daily, Disp: , Rfl: loperamide (Imodium) 2 MG capsule, Take 2 mg by mouth 4 (four) times a day as needed, Disp: , Rfl: magnesium oxide (Mag-Ox) 400 (240 Mg) MG tablet, , Disp: , Rfl: Melatonin 5 MG capsule, Take 1 tablet by mouth as needed at bedtime (for sleep), Disp: 90 capsule, Rfl: 3 metoprolol succinate XL (Toprol-XL) 50 MG 24 hr tablet, TAKE 1 TABLET BY MOUTH EVERY DAY, Disp: 90 tablet, Rfl: 3 nystatin (Mycostatin) 803709 UNIT/GM powder, Apply topically 2 (two) times a day, Disp: 60 g, Rfl: 1 pantoprazole (ProtoNix) 40 MG EC tablet, Take 1 tablet (40 mg) by mouth in the morning. Take before meals., Disp: 90 tablet, Rfl: 3 PARoxetine (Paxil) 40 MG tablet, Take 1 tablet (40 mg) by mouth in the morning., Disp: 90 tablet, Rfl: 3 potassium chloride ER (Micro-K) 10 MEQ ER capsule, Take 2 capsules (20 mEq) by mouth Daily, Disp: 180 capsule, Rfl: 3 predniSONE (Deltasone) 20 MG tablet, Take 40 mg by mouth in the morning., Disp: , Rfl: pregabalin (Lyrica) 75 MG capsule, TAKE 1 CAPSULE BY MOUTH EVERY MORNING AND AT BEDTIME, Disp: 60 capsule, Rfl: 1 sodium chloride 0.9 % solution, , Disp: , Rfl: solifenacin (VESIcare) 10 MG tablet, Take 1 tablet (10 mg) by mouth Daily Swallow tablet whole; do not crush, chew, or split., Disp: 90 tablet, Rfl: 1 Social History: Social History Socioeconomic History Marital status: Spouse name: Not on file Number of children: Not on file Years of education: Not on file Highest education level: Not on file Occupational History Not on file Tobacco Use Smoking status: Former Current packs/day: 0.25 Average packs/day: 0.3 packs/day for 45.0 years (11.3 ttl pk-yrs) Types: Cigarettes Passive exposure: Past Smokeless tobacco: Never Tobacco comments: ECW [noted 03/13/23] : Former smoker ; quit date 01/26/2022 Substance and Sexual Activity Alcohol use: Never Comment: caffeine 2-3 cups/day; pepsi 2 cans/day Drug use: Never Sexual activity: Defer Other Topics Concern Not on file Social History Narrative Not on file Social Determinants of Health Financial Resource Strain: Not on file Food Insecurity: No Food Insecurity (02/19/2024) Received from [facility], [facility] Within the past 12 months we worried whether our food would run out before we got money to buy more.: Never True Within the past 12 months the food we bought just didn't last and we didn't have money to get more.: Never True Transportation Needs: No Transportation Needs (02/19/2024) Received from [facility], [facility] PRAPARE - Transportation Lack of Transportation (Medical): No Lack of Transportation (Non-Medical): No Physical Activity: Not on file Stress: Not on file Social Connections: Not on file Intimate Partner Violence: Not on file Housing Stability: Low Risk (02/19/2024) [facility] Housing Instability Are you worried or concerned that in the next two months you may not have stable housing that you own, rent or stay in as a part of a household?: No ROS: General: denies fever, chills, fatigue, malaise GI: denies abdominal pain or ulcerations with anti-inflammatory medication OBJECTIVE LE EXAM: DERM: Elongated thick yellow crumbly nails digits 1 through 10. negative hair growth b/l feet. Plus 1 pitting edema to bilateral ankles and feet VASC: Negative DP and negative PT pedal pulses NEURO: Gross sensation intact to bilateral feet ORTHO: Positive pain on palpation to nails 1 through 10 Positive pain on palpation lateral left ankle joint capsule and synovium Minimal pain on palpation to right retrocalcaneal bursa as well as Achilles tendon with negative palpable [place] ASSESSMENT 1. Other specified disorders of synovium, left ankle and foot 2. Right Achilles tendinitis 3. Venous insufficiency PLAN Patient to continue with oral anti - inflammatories as needed for pain and recommended OTC medications such as tylenol or Ibuprofen Pt was given steroid injection to the left ankle joint capsule and synovium under US guidance with visualization of injected fluid into area of concern per imaging. Injection consisted of a 2:1 mixture of xylocaine 2%plain and kenalog 10 for a total of 3ccs. Informed pt of risks and benefits of procedure including infection,damage or rupture to soft tissue structures and steroid flare. Pt understood and consented. This is the patients 2nd injection Kalyan Barboza DPM documented in this encounter [facility] 07-02-2024 History of Present illness Narrative Patient: Gera Perdue : 1945 PCP: Gustavo Salas, SUBJECTIVE This is a 78 y.o. female that presents today with a CC of right heel pain. Patient states heel pain for the past 6 months and states it is up to a 10/10 and is non mobile most times but still has pain to the posterior heel region. Denies any trauma to the area and states negative treatment Positive history of venous stasis Patient presents with hx of capsulitis and synovitis to the left ankle joint synovium in the past with steroid injections with positive relief. Patient presents today with a CC of elongated, thick nails. Pt states nails have been elongated and thick for many years and cause pain with ambulation in shoegear. Pt has tried previous treatment with minimal relief. Pt presents today for nail care and treatment. Allergies: Allergies Allergen Reactions Aspirin Other Reaction(s): Mental Status Change Acetaminophen GI intolerance Oxycodone GI intolerance Oxycodone-Acetaminophen GI intolerance Past Medical History: Past Medical History: Diagnosis Date Abdominal hernia Acute hip pain 03/25/2024 ARTURO (acute kidney injury) ([facility] 10/05/2023 Anticoagulated 08/02/2019 Anxiety Arthritis At risk for falls Attention to colostomy ([facility]) 05/27/2014 Carotid stenosis Carotid stenosis, bilateral 03/25/2024 Chronic respiratory failure with hypoxia ([facility]) 01/06/2024 Chronic ulcer of left foot with fat layer exposed ([facility]) Closed head injury 03/25/2024 Closed intertrochanteric fracture of left hip ([facility]) 03/25/2024 Cognitive communication deficit 12/31/2022 Colon polyps Colostomy status ([facility]) 02/25/2015 Constipation Contusion of hip 03/25/2024 COPD (chronic obstructive pulmonary disease) ([facility]) COPD with asthma overlap Cough with expectoration 01/06/2024 Decubitus ulcer of left buttock, stage 1 03/25/2024 Depression ([facility]) Dermatitis Diabetic neuropathy ([facility]) 03/25/2024 Difficulty in walking, not elsewhere classified 08/20/2023 Diverticulitis of intestine, part unspecified, without perforation or abscess without bleeding 12/31/2022 Diverticulosis Encephalopathy Essential tremor 03/25/2024 Facet arthritis of lumbosacral region 03/25/2024 Failed back surgical syndrome Fall Falls frequently 08/20/2023 Female incontinence Frequent UTI 01/06/2024 GERD (gastroesophageal reflux disease) Heart disease History of diverticulitis 02/25/2015 HLD (hyperlipidemia) ([facility]) HTN (hypertension) ([facility]) Impaired mobility and ADLs 03/25/2024 Inability to perform activities of daily living 03/25/2024 Incisional hernia without obstruction or gangrene Insomnia Intertrigo 12/31/2022 Intrinsic (allergic) eczema 08/21/2023 Leukocytosis 03/25/2024 Longstanding persistent atrial fibrillation ([facility]) 08/02/2019 Lower extremity edema Major depressive disorder, recurrent, unspecified ([facility]) 12/31/2022 Microcytic anemia 01/06/2024 Mild congestive heart failure ([facility]) 03/25/2024 Muscle weakness (generalized) 12/31/2022 Nausea and vomiting 03/25/2024 Neck pain Nicotine dependence, unspecified, uncomplicated 12/31/2022 Nutritional deficiency, unspecified 08/27/2023 Obesity Obesity OM (onychomycosis) Osteoarthritis of left hip 03/25/2024 Osteoporosis ([facility] Osteoporosis ([facility]) Personal history of transient ischemic attack (TIA), and cerebral infarction without residual deficits 12/31/2022 Physical deconditioning 03/25/2024 Plantar verruca Pneumonia of right lower lobe due to infectious organism 02/19/2024 Polyneuropathy, unspecified 08/20/2023 Pulmonary hypertension ([facility]) 12/31/2022 S/P right coronary artery (RCA) stent placement S/P total left hip arthroplasty Sinus tarsi syndrome of left foot Sleep apnea Small bowel obstruction ([facility]) 08/01/2019 Smoker SOB (shortness of breath) Speech abnormality 03/25/2024 Spinal stenosis Stented coronary artery 03/25/2024 TIA (transient ischemic attack) 03/2020 hospitalization Tobacco abuse Tremor, unspecified 12/31/2022 Umbilical hernia 12/31/2022 Unspecified fracture of left femur, sequela 12/31/2022 Unspecified lack of coordination 12/31/2022 Vitamin D deficiency 12/31/2022 Medications: Current Outpatient Medications: acetaminophen (Tylenol) 500 MG tablet, Take 1 tablet by mouth every 8 (eight) hours if needed., Disp: , Rfl: albuterol HFA (Ventolin HFA) 90 mcg/act inhaler, Inhale 2 puffs every 4 (four) hours if needed for wheezing or shortness of breath, Disp: 8 g, Rfl: 5 alendronate (Fosamax) 70 MG tablet, Take 1 tablet (70 mg) by mouth every 7 (seven) days Take in the morning with a full glass of water, on an empty stomach, and do not take anything else by mouth or lie down for the next 30 min., Disp: 4 tablet, Rfl: 11 atorvastatin (Lipitor) 40 MG tablet, Take 1 tablet (40 mg) by mouth Daily, Disp: 90 tablet, Rfl: 3 buPROPion XL (Wellbutrin XL) 300 MG 24 hr tablet, TAKE 1 TABLET BY MOUTH IN THE AM, Disp: 90 tablet, Rfl: 3 calcium carbonate 1500 (600 Ca) MG tablet, Take 1 tablet by mouth every 12 (twelve) hours., Disp: , Rfl: cholecalciferol (Vitamin D-3) 50 MCG (2000 UT) capsule, Take 1 capsule (50 mcg) by mouth in the morning., Disp: 90 capsule, Rfl: 3 clopidogrel (Plavix) 75 MG tablet, Take 1 tablet (75 mg) by mouth 1 (one) time each day at the same time, Disp: 90 tablet, Rfl: 3 doxycycline (Vibramycin) 100 MG capsule, TAKE 1 CAPSULE BY MOUTH 2 TIMES A DAY FOR 7 DAYS, Disp: , Rfl: famotidine (Pepcid) 40 MG tablet, Take 0.5 tablets (20 mg) by mouth Daily, Disp: 90 tablet, Rfl: 2 Budinfysceo-Lranhkdzu-Ckrmgb (Trelegy Ellipta) 100-62.5-25 MCG/ACT aerosol powder , Inhale 1 puff in the morning., Disp: 1 each, Rfl: 3 Lakrmlzumnq-Ajrirbglg-Larufx (Trelegy Ellipta) 200-62.5-25 MCG/ACT aerosol powder , Inhale 1 puff Daily, Disp: , Rfl: furosemide (Lasix) 40 MG tablet, 1 1/2 tab=60 mg once daily, Disp: 135 tablet, Rfl: 3 furosemide (Lasix) 40 MG tablet, Take 1 tablet (40 mg) by mouth Daily, Disp: 30 tablet, Rfl: 11 ipratropium-albuterol (Duo-Neb) 0.5-2.5 mg/3 mL nebulizer solution, Take 3 mL by nebulization every 12 (twelve) hours., Disp: 180 mL, Rfl: 3 levoFLOXacin (Levaquin) 500 MG tablet, Take 500 mg by mouth in the morning., Disp: , Rfl: lisinopril 5 MG tablet, Daily, Disp: , Rfl: loperamide (Imodium) 2 MG capsule, Take 2 mg by mouth 4 (four) times a day as needed, Disp: , Rfl: magnesium oxide (Mag-Ox) 400 (240 Mg) MG tablet, , Disp: , Rfl: Melatonin 5 MG capsule, Take 1 tablet by mouth as needed at bedtime (for sleep), Disp: 90 capsule, Rfl: 3 metoprolol succinate XL (Toprol-XL) 50 MG 24 hr tablet, TAKE 1 TABLET BY MOUTH EVERY DAY, Disp: 90 tablet, Rfl: 3 nystatin (Mycostatin) [id number] UNIT/GM powder, Apply topically 2 (two) times a day, Disp: 60 g, Rfl: 1 pantoprazole (ProtoNix) 40 MG EC tablet, Take 1 tablet (40 mg) by mouth in the morning. Take before meals., Disp: 90 tablet, Rfl: 3 PARoxetine (Paxil) 40 MG tablet, Take 1 tablet (40 mg) by mouth in the morning., Disp: 90 tablet, Rfl: 3 potassium chloride ER (Micro-K) 10 MEQ ER capsule, Take 2 capsules (20 mEq) by mouth Daily, Disp: 180 capsule, Rfl: 3 predniSONE (Deltasone) 20 MG tablet, Take 40 mg by mouth in the morning., Disp: , Rfl: pregabalin (Lyrica) 75 MG capsule, TAKE 1 CAPSULE BY MOUTH EVERY MORNING AND AT BEDTIME, Disp: 60 capsule, Rfl: 1 sodium chloride 0.9 % solution, , Disp: , Rfl: solifenacin (VESIcare) 10 MG tablet, Take 1 tablet (10 mg) by mouth Daily Swallow tablet whole; do not crush, chew, or split., Disp: 90 tablet, Rfl: 1 Current Facility-Administered Medications: triamcinolone acetonide (Kenalog-40) injection 40 mg, 40 mg, Intra-articular, Once, Gustavo Salas, DO Social History: Social History Socioeconomic History Marital status: Spouse name: Not on file Number of children: Not on file Years of education: Not on file Highest education level: Not on file Occupational History Not on file Tobacco Use Smoking status: Former Current packs/day: 0.25 Average packs/day: 0.3 packs/day for 45.0 years (11.3 ttl pk-yrs) Types: Cigarettes Passive exposure: Past Smokeless tobacco: Never Tobacco comments: ECW [noted 03/13/23] : Former smoker ; quit date 01/26/2022 Substance and Sexual Activity Alcohol use: Never Comment: caffeine 2-3 cups/day; pepsi 2 cans/day Drug use: Never Sexual activity: Defer Other Topics Concern Not on file Social History Narrative Not on file Social Determinants of Health Financial Resource Strain: Not on file Food Insecurity: No Food Insecurity (02/19/2024) Received from [facility], [facility] Hunger Screening Within the past 12 months we worried whether our food would run out before we got money to buy more.: Never True Within the past 12 months the food we bought just didn't last and we didn't have money to get more.: Never True Transportation Needs: No Transportation Needs (02/19/2024) [facility], [facility] PRAPARE - Transportation Lack of Transportation (Medical): No Lack of Transportation (Non-Medical): No Physical Activity: Not on file Stress: Not on file Social Connections: Not on file Intimate Partner Violence: Not on file Housing Stability: Low Risk (02/19/2024) [facility], [facility] Housing Instability Are you worried or concerned that in the next two months you may not have stable housing that you own, rent or stay in as a part of a household?: No ROS: General: denies fever, chills, fatigue, malaise GI: denies abdominal pain or ulcerations with anti-inflammatory medication OBJECTIVE LE EXAM: DERM: Elongated thick yellow crumbly nails digits 1 through 10. negative hair growth b/l feet. Plus 1 pitting edema to bilateral ankles and feet VASC: Negative DP and negative PT pedal pulses NEURO: Gross sensation intact to bilateral feet ORTHO: Positive pain on palpation to nails 1 through 10 Negative pain on palpation lateral left ankle joint capsule and synovium Positive pain on palpation to right retrocalcaneal bursa as well as Achilles tendon with negative palpable [place] DIAGNOSTIC US REPORT: Verbal order for ultrasound today The achilles tendon of the rightfoot/leg were scanned today with a 12 MHz linear probe in the transverse/sagital planes. Images were obtained. FINDINGS: US examination in the longitudinal and transverse images of the achilles tendon insertion to calcaneus demonstrates a small amount of hypo-echoic density anterior to achilles insertion point on calcaneus. Notable posterior calcaneal enthesophyte IMPRESSION: US findings of right Retrocalcaneal bursitis ASSESSMENT 1. Venous insufficiency 2. Onychomycosis 3. Toe pain, left 4. Toe pain, right 5. Right Achilles tendinitis 6. Heel spur, right PLAN Patient to continue with oral anti - inflammatories as needed for pain and recommended OTC medications such as tylenol or Ibuprofen Reviewed ultrasound today with patient Pt was given steroid injection to the right retrocalcaneal bursa under US guidance with visualization of injected fluid into area of concern per imaging. Injection consisted of a 2:1 mixture of xylocaine 2%plain and dexathesone 4mg for a total of 3ccs. Informed pt of risks and benefits of procedure including infection,damage or rupture to soft tissue structures and steroid flare. This is the patients 1st injection Pt understood and consented. Discussed proper foot care with patient today. [place]bride nails in length and thickness digits 1 through 10 Kalyan Barboza DPM documented in this encounter [facility] 06-22-2024 Telephone encounter Note Justina sent [facility] 06-22-2024 Miscellaneous Notes Yennya sent documented in this encounter [facility] 02-19-[address] CHEST W CONT PROCEDURE: [...] Dima Colón MD on 02/19/2024 4:52 PM [facility] 02-16-2024 Progress note Note Date/Time February 16, 2024 12:07pm [facility] [address] [place] [address] Hospitalist Progress Note Signed Patient: Gera Perdue MR#: [id number] : 1945 Acct:[id number] Age/Sex: 78 / F Adm Date: 4 Loc: 3T Room: [address] [place] [address] Type: ADM IN Attending Dr: Lucho Grullon [...] <Electronically signed by Lucho Grullon MD> 02/16/24 [address] [facility] Work Phone: 1(967) 519-119704-21-2024 Progress note Author Lucho Grullon [facility] February 16, 2024 12:09am Note Date/Time February 15, 2024 3:0 4pm [facility] [address] [place] [address] Hospitalist Progress Note Signed Patient: Gera Perdue MR#: [id number] : 1945 Acct:[id number] Age/Sex: 78 / F Adm Date: 4 Loc: Room: [address] [place] [address] Type: ADM IN Attending Dr: Lucho Grullon [...] Plan Documented By: Lucho Grullon MD 02/15/24 6345 Signed By: <Electronically signed by Lucho Grullon MD> 02/16/[address] [facility] Work Phone: 1(477) 833-419904-20-2024 History and physical note Author Lucho Grullon [facility] February 15, 2024 12:58am Note Date/Time February 14, 2024 5:5 9pm [facility] [address] [place] [address] Hospitalist H&P Signed Patient: Gera Perdue MR#: [id number] : 1945 Acct:[id number] Age/Sex: 78 / F Adm Date: 4 Loc: 3T Room: [address] [place] [address] Type: ADM IN Attending Dr: Lucho Grullon [...] care Discussed with:?the medical team, the patient [facility] Medical History Intertrochanteric fracture of [...] % (Auto) 23.7 % (.) 02/14/24 11:39 [place] % (Auto) 12.3 % (.) 02/14/24 11:39 Eos % (Auto) 0.4 % (.) 02/14/24 11:39 Baso % (Auto) 0.9 % (.) 02/14/24 11:39 Nucleat RBC Rel Count 0.1 /100 WBC (0-0.5) 02/14/24 11:39 Neut # (Auto) 8.5 x10E3/uL (1.8-7.7) H 02/14/24 11:39 Lymph # (Auto) 3.2 x10E3/uL (1.00-4.8) 02/14/24 11:39 [place] # (Auto) 1.7 x10E3/uL (0.0-0.8) H 02/14/24 [...] pH 5.5 (5.0-9.0) 02/14/24 11:50 Ur Specific [place] 1.024 (1.001-1.030) 02/14/24 11:50 Urine Protein 30 [...] signed by Lucho Grullon MD> 02/15/24 0058 [facility] Work Phone: 1([phone]) 309-834404-15-2024 History of Present illness Narrative* Jenna Engle [...] stage IIIb 5. Patient was transferred to [facility] from [facility] for nephrology consultation for ARTURO on CKD along with hyperkalemia. This occurred in September 2023. Prior to that she had been living [facility], and has been in and out of [facility] on multiple occasions, being treated for urinary [...] redirect to the Timeline version of the [employer] SmartLink. Wt Readings from Last 3 Encounters: [...] smoker 01/06/2024 Frequent UTI 01/06/2024 Angina pectoris ([facility]) 12/04/2023 Coronary artery disease 12/04/2023 Dyspnea 12/04/2023 Essential hypertension 12/04/2023 Hyperlipidemia, mixed 12/04/2023 Assessment: 1. Shortness of breath Follow Up In Cardiology 2. 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 3. History of [...] further questions arise, Sincerely, Jenna Engle MD [facility] Follow up : prn Scribe Attestation By signing my name below, IHoa LPN , Scriblakisha attest that this documentation has been prepared [...] exam, discussion and plan. [facility] Work Phone: 1([phone]) 581-380004-15-2024 Instructions* Patient Instructions* Hoa Buck LPN - [...] ordered as needed only documented in [facility] Work Phone: 1([phone]) 607-852704-04-2024 Hospital Discharge instructions Patient Education 01/30/2024 14:50:25 [...] Treatment for this condition includes: Antibiotic medicine. Gmjf-msc-fpofkul medicines to treat discomfort. Drinking enough water [...] Follow these instructions at home: Medicines Take mpnv-ghj-sporhbz and prescription medicines only as told by [...] provider. Document Revised: 05/26/2021 Document Reviewed: 05/26/2021 [employer] Patient Education 2022 [employer]nexus. 01/30/2024 14:50:24 Urinary Incontinence Urinary Incontinence Urinary [...] nerve stimulation). ?For women, using a medical technologist chemistry to prevent urine leaks. This is a [...] right after experiencing incontinence. General instructions Take cqhd-byd-sfeswtz and prescription medicines only as told by [...] important. Where to find more information National [place] of Diabetes and Digestive and Kidney Diseases: www.niddk.nih.gov [place] [employer]: www.urologyhealth.org Contact a health care [...] provider. Document Revised: 05/19/2021 Document Reviewed: 05/19/2021 [employer] Patient Education 2022 Adnexus. 01/30/2024 14:50:21 Overactive Bladder, Adult Overactive Bladder, [...] your health care provider. General instructions Take thhe-cst-aeakabu and prescription medicines only as told by [...] provider. Document Revised: 07/03/2021 Document Reviewed: 07/03/2021 [employer] Patient Education 2022 Adnexus. Follow Up Care 01/13/2024 09:25:34 With:CHIP Ponce APRN, Renae Delaney, JYOTI, URL Address: When: Unknown Comments:pending cysto/UD [facility] Ryann 04-04-2024 Evaluation + Plan note Diagnostic Tests Pending * Urine Culture 01/30/24 [facility]03-11-2024 History of Present illness Narrative* [...] have been reviewed. Reviewed extensive records from [facility].. Past Medical History: 1. Longstanding nicotine dependence with COPD, currently hypoxemic respiratory failure on oxygen. 2. Primary hypertension 3. Obstructive sleep apnea 4. Chronic kidney disease stage IIIb 5. Patient was transferred to [facility] from [facility] for nephrology consultation for ARTURO on CKD along with hyperkalemia. This occurred in September 2023. Prior to that she had been living [facility], and has been in and out of [facility] on multiple occasions, being treated for urinary [...] 2 views; Future 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 Stage 3b chronic kidney disease (CMS/HCC) Microcytic anemia History of PTCA Essential hypertension Hyperlipidemia, mixed Obstructive sleep apnea syndrome Chronic respiratory failure with hypoxia (CMS/HCC) Frequent UTI BMI 32.0-32.9,adult Cough with expectoration Current smoker 1. Shortness of breath 2. 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 3. Stage 3b chronic kidney disease (CMS/HCC) 4. Microcytic anemia 5. History of PTCA 6. Essential hypertension 7. Hyperlipidemia, mixed 8. Obstructive sleep apnea syndrome 9. Chronic respiratory failure with hypoxia (CMS/HCC) 10. Frequent UTI 11. BMI 32.0-32.9,adult 12. Cough with expectoration 13. Current smoker Patient with multiple comorbidities, atherosclerotic tribal vessel coronary artery disease and riskfactors, recent [...] to smoke. She has history of atherosclerotic tribal vessel coronary artery disease with intolerance to [...] further questions arise, Sincerely, Jenna Engle MD [facility] Scribe Attestation By signing my [...] exam, discussion and plan. documented in this [facility] Work Phone: 1(885) 394-344603-11-2024 Instructions* Patient Instructions* Yaquelin Garcia LPN - [...] two weeks then stop documented in this [facility] Work Phone: 1(730) 925-880102-12-2024 History of Present illness Narrative* Lilliam Cheek, GIOVANY - 12/09/2023 11:00 AM EST Subjective Patient ID: Gera Perdue (: 1945) is a 78 y.o. female who presents for Hospital Follow-up. HPI Pt presents and daughter present for hospital follow up. Pt was admitted to [facility] in early September for ARTURO, UTI, and sepsis. Patient was then discharged to the [facility] in [place]. Pt was released from the [facility] on 11/28/2023. She is supposed to be getting HH however the company they were r eferred to is short staffed so her family has been caring for her. Today patient has complaints of shortness of breath and bilateral leg swelling. Pt denies urinary symptoms. She is currently finishing her Levaquin as she was started on at the [facility]. Pt did also receive weeks of Daptomycin [...] 12 hours cholecalciferol (Vitamin D-3) 50 MCG (1999) capsule 1 capsule, Oral, Every 24 hours [...] TABLET BY MOUTH EVERY DAY nystatin (Mycostatin) 355093 UNIT/GM powder APPLY TOPICALLY TO THE AFFECTED [...] related osteoporosis (CMS/HCC) Atherosclerotic heart disease of tribal coronary artery without angina pectoris (CMS/HCC) Carotid stenosis Chronic obstructive pulmonary disease (CMS/HCC) Essential hypertension (CMS/HCC) Failed back surgical syndrome Hyperlipidemia (CMS/HCC) 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) ([facility]) Primary osteoarthritis Stage 3a chronic kidney disease [...] O:KLEPNE Isolated TBH CULTURE URINE Urine Culture [place] Count TBH CULTURE URINE >100,000 CFU/ml TBH [...] List Items Addressed This Visit Essential hypertension ([facility]) Relevant Orders CBC and differential Comprehensive metabolic panel Hyperlipidemia ([facility]) Stage 3a chronic kidney disease (HCC) ([facility]) Relevant Orders Urinalysis with microscopic Magnesium SOB (shortness of breath) - Primary Hospital discharge follow-up Other Visit Diagnoses Wheezing Urinary tract bacterial infections Relevant Orders Urinalysis with microscopic Urine culture (clean catch) Sepsis with acute renal failure without septic shock, due to unspecified organism, unspecified acute renal failure type ([facility]) Medication management Patient presents today with daughter for hospital/custodial follow up. Patient was admitted to [facility] (all hospital records are in Care Everywhere and were reviewed prior to and during appt). With UTI, ARTURO and sepsis. She did receive IV antibiotics through a PICC line which has since been removed. She was discharged to the [facility] for custodial for three weeks and was discharged on11/28/2023. Patient is currently finishing oral Levaquin. Patient denies urnary symptoms or fevers today. Patient does have complaints of leg swelling and shortness of breath. Assessment does consist of wheezing and rhonchi. Daughter did bring a large bag with multiple medications that needed reviewed and sorted out. This YOUTH NUTRITIONAL MONITOR did review each medication and compared it to the discharge summary from the [facility]. Each medication was discussed and placed in proper labeled bags to assist in the proper set up at home. Patient does have an order for however the company does not have enough staff. I am going to send an order to [facility] as this patient needs and requires a HH nurse, aide, social media developer and PT. CCM will also be consulted. Patient does discuss concerns of a prolapsed bladder being apossible cause of the UTI's which this does need assessed in a timely manner. Referral sent to [employer].Advised daughter to call office within 5-7 days if she has not heard anything to address the above r eferrals. Patient is currently supposed to be taking Prednisone 20 mg a day which she has not been doing. This was given at the [facility]. Due to the wheezing and shortness of breath I advised they to 40 mg a day for 3 days and finish the rest of the 20 mg a day until finished. Patient and daughter instructed to call office with any questions or to seek ER if symptoms worsen. Patient does have an infectious disease follow up on 12/02/2023 and senior cytotechnologist on 01/06/2024. Patient will return to the [...] breathing machine I will address this with [facility]. Health Maintenance Topic Date Due Diabetes: [...] follow up with labs. documented in this encounterRipley County Memorial [id number] Miscellaneous Notes* Telephone Encounter - Yvonne Kelly RN - 11/12/2023 2:42 PM EST Called Alethea-Patient's daughter back after r/s hospital followup with Dr Galicia for 11-22-2023. Our office does not participate with her Mom's insurance-[facility] Dual Complete. Appt cancelled. Alethea to call her Mom's [facility] [employer] Complete Customer Service to see what Ellen GUZMAN is on her plan. Alethea to call office back so we can send a referral. [facility] [place] Telephone encounter Note* Telephone Encounter - Yvonne Kelly RN - 11/12/2023 2:42 PM EST Called Alethea-Patient's daughter back after r/s hospital followup with Dr Galicia for 11-22-2023. Our office does not participate with her Mom's insurance-[facility] Dual Complete. Appt cancelled. Alethea to call her Mom's [facility] [employer] Complete Customer Service to see what Ellen GUZMAN is on her plan. Alethea to call office back so we can send a referral. [facility] [place]01-16-2024 Miscellaneous Notes* Telephone Encounter - Nirmala Shirley - 11/12/2023 10:18 AM EST ALETHEA IS CALLING SINCE PT TESTED POSITIVE FOR COVID. PLEASE CALL AND ADVISE ABOUT THE HOSPITAL DISCHARGE FOLLOW UP SHE CAN BE REACHED AT [phone] * Telephone Encounter - Yvonne Kelly RN - 11/12/2023 10:18 AM EST Patient is in isolation until 11-17-2023. Appt r/s with Dr Galicia for 10:30a documented in this encounterKing[facility] [place]01-16-2024 Telephone encounter Note* Telephone Encounter - Nirmala Shirley - 11/12/2023 10:18 AM EST ALETHEA IS CALLING SINCE PT TESTED POSITIVE FOR COVID. PLEASE CALL AND ADVISE ABOUT THE HOSPITAL DISCHARGE FOLLOW UP SHE CAN BE REACHED AT [phone] [facility] [place]01-16-2024 Telephone encounter Note* Telephone Encounter - Yvonne Kelly RN - 11/12/2023 10:18 AM EST Patient is in isolation until 11-17-2023. Appt r/s with Dr Galicia for 10:30a [facility] [place]01-03-2024 Miscellaneous Notes* Telephone Encounter - Avtar Ortega - 10/30/2023 12:37 PM EST New patient/Hospital Follow Up DX: Sleep Apnea Scheduled 01/10/24 w/ Dr. Gallagher [facility] Paperwork sent: 10/30/23. Please send paperwork to: [employer] @ [place] [id number] [address] [place] [id number] Ins verified (OON notification); NO WORKMAN'S COMP; NO ACCIDENT documented in [facility]40[facility].com01-03-2024 Telephone encounter Note* Telephone Encounter - Amrit Ortega - 10/30/2023 12:37 PM EST New patient/Hospital Follow Up DX: Sleep Apnea Scheduled 01/10/24 w/ Dr. Gallagher [facility] Paperwork sent: 10/30/23. Please send paperwork to: [facility] @ [place] [address] [address] [facility] [id number] Ins verified (OON notification); NO WORKMAN'S COMP; NO ACCIDENT [facility] [employer] [id number] Discharge summary Author Jesus Alberto Aquino [facility] August 20, 2023 1:32pm Note Date/Time August 20, 2023 1 :32pm [facility] [address] [place] [address] Discharge Summary Signed Patient: Gera Perdue MR#: [id number] : 1945 Acct:[id number] Age/Sex: 77 / F Adm Date: 3 Loc: Room: [address] [place] [address]: Jesus Alberto Aquino MD Copies [...] 08:00 Discharge Plan Discharge Plan Patient Disposition: Jail Facility Activity: No Activity Restriction Diet: Regular [...] by Jesus Alberto Aquino MD> 08/20/23 1332 [facility] Work Phone: 1(434) 864-459910-23-2023 Progress note Author Jesus Alberto Aquino [facility] August 19, 2023 2:43pm Note Date/Time August 19, 2023 2 :43pm [facility] [address] [place] [address] Hospitalist Progress Note Signed Patient: Gera Perdue MR#: [id number] : 1945 Acct:[id number] Age/Sex: 77 / F Adm Date: 3 Loc: Room: [address] [place] [address] Type: ADM IN Attending Dr: Jesus Alberto [...] 08/19/23 09:59 Plasma-Lyte A Ph 7.4 IV 10/20/24 20:59 100 mls/hr .Q10H JERILYN Administration Metoprolol [...] Aquino MD> 08/19/231442 [facility] Work Phone: 1([phone]) 671-405310-22-2023 Progress note Author Jesus Alberto Aquino [facility] August 18, 2023 1:49pm Note Date/Time August 18, 2023 1 :49pm [facility] [address] [place] [address] Hospitalist Progress Note Signed Patient: Gera Perdue MR#: [id number] : 1945 Acct:[id number] Age/Sex: 77 / F Adm Date: 3 Loc: Room: [address] [place] [address] Type: ADM IN Attending Dr: Jesus Alberto [...] signed by Jesus Alberto Aquino MD> 08/18/231348 [facility] Work Phone: 1([phone]) 808-316110-21-2023 History and physical note Author Jesus Alberto Aquino [facility] August 17, 2023 7:50pm Note Date/Time August 17, 2023 7 :50pm [facility] [address] [place] [address] Hospitalist H&P Signed Patient: Gera Perdue MR#: [id number] : 1945 Acct:[id number] Age/Sex: 77 / F Adm Date: 3 Loc: 3T Room: 8H1226-2 Type: ADM IN Attending Dr: Jesus Alberto [...] apnea Nephrolithiasis Pulm hypertension GERD Hypertension Dyslipidemia [facility] Medical History (Updated 08/17/23 @ [...] % (Auto) 7.8 % (.) 08/17/23 16:05 [place] % (Auto) 5.5 % (.) 08/17/23 16:05 Eos % (Auto) 0.0 % (.) 08/17/23 16:05 Baso % (Auto) 0.2 % (.) 08/17/23 16:05 Nucleat RBC Rel Count 0.1 /100 WBC (0-0.5) 08/17/23 16:05 Neut # (Auto) 25.4 x10E3/uL (1.8-7.7) H 08/17/23 16:05 Lymph # (Auto) 2.3 x10E3/uL (1.00-4.8) 08/17/23 16:05 [place] # (Auto) 1.6 x10E3/uL (0.0-0.8) H 08/17/23 [...] signed by Jesus Alberto Aquino MD> 08/17/231949 [facility] Work Phone: 1([phone]) 931-441310-21-2023 History and physical note Author Jesus Alberto Aquino [facility] August 17, 2023 7:50pm Note Date/Time August 17, 2023 7 :50pm [facility] [address] [place] [address] Hospitalist H&P Signed Patient: Gera Perdue MR#: [id number] : 1945 Acct:[id number] Age/Sex: 77 / F Adm Date: 3 Loc: Room: [address] [place] [address] Type: ADM IN Attending Dr: Jesus Alberto [...] apnea Nephrolithiasis Pulm hypertension GERD Hypertension Dyslipidemia [facility] Medical History (Updated 08/17/23 @ [...] % (Auto) 7.8 % (.) 08/17/23 16:05 [place] % (Auto) 5.5 % (.) 08/17/23 16:05 Eos % (Auto) 0.0 % (.) 08/17/23 16:05 Baso % (Auto) 0.2 % (.) 08/17/23 16:05 Nucleat RBC Rel Count 0.1 /100 WBC (0-0.5) 08/17/23 16:05 Neut # (Auto) 25.4 x10E3/uL (1.8-7.7) H 08/17/23 16:05 Lymph # (Auto) 2.3 x10E3/uL (1.00-4.8) 08/17/23 16:05 [place] # (Auto) 1.6 x10E3/uL (0.0-0.8) H 08/17/23 [...] by Jesus Alberto Aquino MD> 08/17/23 1950 [facility] Work Phone: 1(756) 976-228309-17-2023 Discharge summary Author Jolanta Mckenzie [facility] July 14, 2023 11:16am Note Date/Time July 14, 2023 11:16am [facility] [address] [place] [address] Discharge Summary Signed Patient: Gera Perdue MR#: [id number] : 1945 Acct:[id number] Age/Sex: 77 / F Adm Date: 3 Loc: Room: [address] [place] [address]: Jolatna Mckenzie MD Copies to: Gustavo Salas,DO Jolanta [...] breathing. Physical therapy wasconsulted with recommendation for custodial facility which patient is refusing understanding the [...] % (Auto) 69.9, Lymph % (Auto) 22.1, [place] % (Auto) 7.3, Eos % (Auto) 0.4, Baso % (Auto) 0.3, Nucleat RBC Rel Count 0.1, Neut # (Auto) 13.5 H, Lymph # (Auto) 4.3, [place] # (Auto) 1.4 H, Eos # (Auto) [...] MD> 07/14/[address] [facility] Work Phone: 1(965) 883-240709-16-2023 Progress note Author Jolanta Mckenzie [facility] July 13, 2023 1:59pm Note Date/Time July 13, 2023 10:40am [facility] [address] [place] [address] Hospitalist Progress Note Signed with Addenda Patient: Gera Perdue MR#: [id number] : 1945 Acct:[id number] Age/Sex: 77 / F Adm Date: 3 Loc: Room: [address] [place] [address] Type: ADM IN Attending Dr: Jolanta Mckenzie [...] but patient also on steroid. Discussed regarding custodial facility she has not decided yet. Give 1 dose of IV Lasix and resume oral Lasix from tomorrow. Addendum Documented By: Jolanta Mckenzie MD 07/13/23 6610 Addendum Signed By: <Electronically signed by Jolanta Mckenzie MD> 07/13/23 5901 Date of Service: 07/13/2023 Subjective Subjective Narrative: [...] <Electronically signed by Jolanta Mckenzie MD> 07/13/23 1176 [facility] Work Phone: 1(346) 403-254109-15-2023 Progress note Author Jolanta Mckenzie [facility] July 12, 2023 3:00pm Note Date/Time July 12, 2023 2:16pm [facility] [address] [place] [address] Hospitalist Progress Note Signed with Addenda Patient: Gera Perdue MR#: [id number] : 1945 Acct:[id number] Age/Sex: 77 / F Adm Date: 3 Loc: Room: [address] [place] [address] Type: ADM IN Attending Dr: Jolanta Mckenzie [...] and switch to oral prednisone. PT recommended custodial facility which patient is refusing with plan [...] Vial SUBCUT 07/09/24 13:59 5,000 unit Q8HR JERIYLN Administration Sodium Chloride 1,000 mls @ 75 mls/hr 07/10/23 14:00 07/12/23 10:04 0.9% Sodium Chloride 1,000 Ml IV 07/09/24 13:59 75 mls/hr .[id number] JERILYN Administration Ceftriaxone Sodium 1 gm in [...] signed by Jolanta Mckenzie MD> 07/12/23 1457 [facility] Work Phone: 1(456) 529-735109-14-2023 Progress note Author Jolanta Mckenzie [facility] July 11, 2023 12:47pm Note Date/Time July 11, 2023 10:10am [facility] [address] [place] [address] Hospitalist Progress Note Signed with Addenda Patient: Gera Perdue#: [id number] : 1945 Acct:[id number] Age/Sex: 77 / F Adm Date: 3 Loc: 3T Room: [address] [place] [address] Type: ADM IN Attending Dr: Jolanta Mckenzie [...] Sanjayq PRN Reason Stop Dose Admin Acetaminophen 1,000 [...] 300 Mg Tab.Er.24h PO 07/10/24 08:59 QAM [facility] Clopidogrel Bisulfate 75 mg 07/11/23 09:00 Clopidogrel [...] 1,000 Ml IV 07/09/24 13:59 75 mls/hr .[id number] JERILYN Administration Ceftriaxone Sodium 1 gm in 50 mls @ 100 mls/hr 07/11/23 11:00 Rocephin IV Q24H JERILYN Methylprednisolone Sodium Succinate 40 mg 07/10/23 14:00 07/11/23 05:56 Methylprednisolone Sod Succ 40 Mg/Ml Vial IV-PUSH 07/09/24 13:59 40 mg Q8HR JERILYN Administration Pantoprazole Sodium 40 mg 07/11/23 09:00 Pantoprazole 40 Mg Tablet. PO 07/10/24 08:59 DAILY [facility] Paroxetine HCl 40 mg 07/11/23 09:00 Paroxetine 20 Mg Tablet PO 07/10/24 08:59 QAM [facility] Pregabalin 75 mg 07/10/23 21:00 07/10/23 21:47 [...] signed by Jolanta Mckenzie MD> 07/11/23 1246 [facility] Work Phone: 1(177) 683-888009-13-2023 History and physical note Author Jolanta Mckenzie [facility] July 10, 2023 1:50pm Note Date/Time July 10, 2023 1:44pm [facility] [address] [place] [address] Hospitalist H&P Signed Patient: Gera Perdue MR#: [id number] : 1945 Acct:[id number] Age/Sex: 77 / F Adm Date: 3 Loc: Room: [address] [place] [address] Type: ADM IN Attending Dr: Jolanta Mckenzie [...] negative unless noted below or in HPI [facility] Medical History Arthritis COPD (chronic [...] % (Auto) 31.5 % (.) 07/10/23 08:44 [place] % (Auto) 6.5 % (.) 07/10/23 08:44 Eos % (Auto) 0.4 % (.) 07/10/23 08:44 Baso % (Auto) 0.2 % (.) 07/10/23 08:44 Nucleat RBC Rel Count 0.1 /100 WBC (0-0.5) 07/10/23 08:44 Neut # (Auto) 13.1 x10E3/uL (1.8-7.7) H 07/10/23 08:44 Lymph # (Auto) 6.7 x10E3/uL (1.00-4.8) H 07/10/23 08:44 [place] # (Auto) 1.4 x10E3/uL (0.0-0.8) H 07/10/23 [...] pH 8.5 (5.0-9.0) 07/10/23 08:44 Ur Specific [place] 1.022 (1.001-1.030) 07/10/23 08:44 Urine Protein 30 [...] signed by Jolanta Mckenzie MD> 07/10/23 1350 [facility] Work Phone: 1(154) 426-791103-06-2023 Discharge summary Author Jesus Alberto Aquino [facility] December 31, 2022 3:43pm Note Date/Time December 31, 2022 11:5 7am [facility] [address] [place] [address] Discharge Summary Signed Patient: Gera Perdue MR#: [id number] : 1945 Acct:[id number] Age/Sex: 77 / F Adm Date: 3 Loc: Room: [address] [place] [address]: Jesus Alberto Aquino MD Copies [...] complications occurred, and patient was discharged to custodial facility in stable condition on December 31. [...] % (Auto) N/A, Lymph % (Auto) N/A, [place] % (Auto) N/A, Eos % (Auto) N/A, Baso % (Auto) N/A, Nucleat RBC Rel Count N/A, Neut # (Auto) N/A, Lymph # (Auto) N/A, [place] # (Auto) N/A, Eos # (Auto) N/A, [...] 09:23 Discharge Plan Discharge Plan Patient Disposition: Jail Facility Activity: No Activity Restriction Diet: Regular [...] fall precautions Care to be managed by [facility] providers Prescriptions: New clopidogrel 75 mg Tablet [...] by Jesus Alberto Aquino MD> 12/31/22 1548 [facility] Work Phone: 1([phone]) 149-207203-05-2023 Progress note Author Carla Hagan [facility] December 30, 2022 9:53am Note Date/Time December 30, 2022 9:53 am [facility] [address] [place] [address] Hospitalist Progress Note Signed Patient: Gera Perdue MR#: [id number] : 1945 Acct:[id number] Age/Sex: 77 / F Adm Date: 3 Loc: 4N Room: 9Q7885-0 Type: ADM IN Attending Dr: Carla Hagan [...] place, time and person. Morbidly obese HEENT: [place] conjunctiva and NL buccal mucosa Neck: Supple, [...] Bottle TOPICAL 12/27/23 00:29 1 applic BID JERIYLN Administration Ondansetron HCl 4 mg 12/26/22 23:41 [...] anemia Plan is to discharge patient to custodial unit for short period of time for [...] setting Documented By: Carla Hagan MD 12/30/22 9750 Signed By: <Electronically signed by Carla Hagan MD> 12/30/22 7388 [facility] Work Phone: 1(162) 786-405503-04-2023 Progress note Author Carla Hagan [facility] December 29, 2022 10:00am Note Date/Time December 29, 2022 10:0 0am [facility] [address] [place], [place] [id number] Hospitalist Progress Note Signed Patient: Gera Perdue MR#: [id number] : 1945 Acct:[id number] Age/Sex: 77 / F Adm Date: 3 Loc: 4N Room: 6U3771-6 Type: ADM IN Attending Dr: Carla Hagan [...] place, time and person. Morbidly obese HEENT: [place] conjunctiva and NL buccal mucosa Neck: Supple, [...] 12/28/22 12:30 Rocephin IV 100 mls/hr Q24H JERIYLN Administration Magnesium Sulfate 2 gm in 50 [...] MD> 12/29/[address] [facility] Work Phone: 1(443) 792-431503-03-2023 Progress note Author Carla Hagan [facility] December 28, 2022 11:14am Note Date/Time December 28, 2022 9:27 am [facility] [address] [place] [address] Hospitalist Progress Note Signed Patient: Gera Perdue MR#: [id number] : 1945 Acct:[id number] Age/Sex: 77 / F Adm Date: 3 Loc: 4 Room: [address] [place] [address] Type: ADM IN Attending Dr: Carla Hagan [...] any cardiac arrhythmia.? Patient will likely require custodial facility on discharge. Patient is medically cleared for discharge pending placement approval. The patient would likely need to have additional work-up, investigation and therapeutic intervention but will be determined based on the clinical progression and follow-up test result Documented By: Carla Hagan MD 12/28/22 0918 Signed By: <Electronically signed by Carla Hagan MD> 12/28/22 1114 <Electronically signed by DO SEAN Armas> 12/28/22 1048 [facility] Work Phone: 1(947) 968-922703-02-2023 Progress note Author Carla Hagan [facility] December 27, 2022 12:40pm Note Date/Time December 27, 2022 9:25 am [facility] [address] [place] [address] Hospitalist Progress Note Signed Patient: Gera Perdue MR#: [id number] : 1945 Acct:[id number] Age/Sex: 77 / F Adm Date: 3 Loc: 4N Room: 6X7002-5 Type: ADM IN Attending Dr: Carla Hagan [...] Mg/2 Ml Ampul.Neb INHALATION 12/27/23 05:59 BID@0600,1800 [facility] Bupropion HCl 300 mg 12/27/22 09:00 Bupropion 300 Mg Tab.Er.24h PO 12/27/23 08:59 QAM [facility] Calcium Carbonate 600 mg 12/27/22 09:00 Calcium Carbonate 500 Mg Tablet PO 12/27/23 08:59 DAILY [facility] Clopidogrel Bisulfate 75 mg 12/27/22 09:00 Clopidogrel Bisulfate 75 Mg Tablet PO 12/27/23 08:59 DAILY [facility] Heparin Sodium (Porcine) 5,000 unit 12/27/22 06:00 12/27/22 06:14 Heparin 5,000 Unit/Ml Vial SUBCUT 12/27/23 05:59 5,000 unit Q8HR JERILYN Administration Hydromorphone HCl 0.5 mg 12/27/22 03:58 Hydromorphone 0.5 Mg/0.5 Ml Syringe IV-PUSH Q4H PRN Pain Scale 8 - 10 Lisinopril 5 mg 12/27/22 09:00 Lisinopril 5 Mg Tablet PO 12/27/23 08:59 DAILY [facility] Metoprolol Succinate 50 mg 12/27/22 09:00 Metoprolol [...] mg 12/27/22 09:00 Pantoprazole 40 Mg Tablet.Dr PO 12/27/23 08:59 DAILY [facility] Paroxetine HCl 40 mg 12/27/22 09:00 Paroxetine [...] 15 Gm Tube TOPICAL 12/27/23 08:59 BID [facility] Vitamin D 50 mcg 12/27/22 09:00 Cholecalciferol 25 Mcg (1,000 Units) Tablet PO 12/27/23 08:59 DAILY [facility] A&P - Hospitalist Assessment/Plan (1) Fall: (2) [...] any cardiac arrhythmia.? Patient will likely require custodial facility on discharge. Documented By: Carla Hagan MD 12/27/22 0857 Signed By: <Electronically signed by Carla Hagan MD> 12/27/22 1240 <Electronically signed by DO SEAN Armas> 12/27/[address] [facility] Work Phone: 1(217) 211-135103-02-2023 History and physical note Author Jolanta Mckenzie [facility] December 27, 2022 12:32am Note Date/Time December 26, 2022 11:0 5pm [facility] [address] [place] [address] Hospitalist H&P Signed with Addenda Patient: Gera Perdue MR#: [id number] : 1945 Acct:[id number] Age/Sex: 77 / F Adm Date: 3 Loc: Room: [address] [place] [address] Type: ADM IN Attending Dr: Jolanta Mckenzie [...] signed by Jolanta Mckenzie MD> 12/27/22 003 ADDENDUM1 Patient was personally seen by me [...] any cardiac arrhythmia. Patient will likely require custodial facility on discharge. Addendum Documented By: Jolanta [...] % (Auto) 24.8 % (.) 12/26/22 19:36 [place] % (Auto) 10.1 % (.) 12/26/22 19:36 Eos % (Auto) 1.1 % (.) 12/26/22 19:36 Baso % (Auto) 0.5 % (.) 12/26/22 19:36 Nucleat RBC Rel Count 0.1 /100 WBC (0-0.5) 12/26/22 19:36 Neut # (Auto) 7.6 x10E3/uL (1.8-7.7) 12/26/22 19:36 Lymph # (Auto) 3.0 x10E3/uL (1.00-4.8) 12/26/22 19:36 [place] # (Auto) 1.2 x10E3/uL (0.0-0.8) H 12/26/22 [...] SNF Documented By: Jolanta Mckenzie MD 12/26/22 2242 Signed By: <Electronically signed by Jolanta Mckenzie MD> 12/27/22 0026 <Electronically signed by MD SEAN Mann> 12/27/22 0022 [facility] Work Phone: 1([phone]) 526-959407-01-2022 NoteHISTORY: Bone density screening. COMPARISON: 08/03/2020 PROCEDURE: [...] and signed by Edgar Hooper on 05/01/2022 [facility]* Encounter Date Diagnosis Assessment Notes Treatment Notes Treatment Clinical Notes Mar, Major depressive disorder, recurrent severe without psychotic features (ICD-10 - F33.2) [employer] Other 03-24-2022 Evaluation note* Encounter Date Diagnosis Assessment Notes Treatment Notes Treatment Clinical Notes Dec, GERD (gastroesophageal reflux disease) (ICD-10 - K21.9) [facility] [employer] Other Discharge summary Author Jesus Alberto Aquino [facility] December 31, 2022 3:43pm Note Date/Time December 31, 2022 11:5 7am [facility] [address] [place] [address] Discharge Summary Signed Patient: Gera Perdue MR#: [id number] : 1945 Acct:[id number] Age/Sex: 77 / F Adm Date: 3 Loc: Room: [address] [place] [address]: Jesus Alberto Aquino MD Copies [...] complications occurred, and patient was discharged to custodial facility in stable condition on December 31. [...] % (Auto) N/A, Lymph % (Auto) N/A, [place] % (Auto) N/A, Eos % (Auto) N/A, Baso % (Auto) N/A, Nucleat RBC Rel Count N/A, Neut # (Auto) N/A, Lymph # (Auto) N/A, [place] # (Auto) N/A, Eos # (Auto) N/A, [...] 09:23 Discharge Plan Discharge Plan Patient Disposition: Jail Facility Activity: No Activity Restriction Diet: Regular [...] by Jesus Alberto Aquino MD> 12/31/22 1548 [facility] Work Phone: Discharge summary Author Jolanta Mceknzie [facility] July 14, 2023 11:16am Note Date/Time July 14, 2023 11:16am [facility] [address] [place] [address] Discharge Summary Signed Patient: Gera Perdue MR#: [id number] : 1945 Acct:[id number] Age/Sex: 77 / F Adm Date: 3 Loc: Room: 5K2141-[address]: Jolanta Mckenzie MD Copies to: [...] breathing. Physical therapy wasconsulted with recommendation for custodial facility which patient is refusing understanding the [...] % (Auto) 69.9, Lymph % (Auto) 22.1, [place] % (Auto) 7.3, Eos % (Auto) 0.4, Baso % (Auto) 0.3, Nucleat RBC Rel Count 0.1, Neut # (Auto) 13.5 H, Lymph # (Auto) 4.3, [place] # (Auto) 1.4 H, Eos # (Auto) [...] Mckenzie MD> 07/14/23 [facility] Work Phone: Discharge summary Author Michoacano Mckenzie [facility] February 17, 2024 4:57pm Note Date/Time February 17, 2024 4:4 6pm [facility] [address] [place] [address] Discharge Summary Signed Patient: Gera Perdue MR#: [id number] : 1945 Acct:[id number] Age/Sex: 78 / F Adm Date: 4 Loc: Room: [address] [place] [address]: Michoacano Mckenzie MD Copies to: [...] by physical and Occupational Therapy, who recommended custodial placement. Patient was very adamant that she [...] signed by Michoacano Mckenzie MD> 02/17/24 1657 [facility] Work Phone: Evaluation noteNo [employer] Other Evaluation noteNo assessment information available [facility] Work Phone: Evaluation note* Diagnosis Onset Date Resolution Status Accidental fall acute Head injury acute Inability to perform activities of daily living acute [facility] Work Phone: evaluation note* Diagnosis Onset Date Resolution Status Accidental fall acute Acute hip pain acute Fall acute Head injury acute Inability to perform activities of daily living acute Physical deconditioning acut e [facility] Work Phone: Evaluation note* Diagnosis Onset Date Resolution Status Acute exacerbation of chroni c obstructive pulmonary disease acute CAD (coronary artery disease) acute Closed head injury acute Contusion of hip acute Fall acute Umbilical hernia acute UTI (urinary tract infection) acute [facility] Work Phone: evaluation note* Diagnosis Onset Date Resolution Status Acute exacerbation of chroni c obstructive pulmonary disease acute CAD (coronary artery disease) acute Closed head injury acute Contusion of hip acute Fall acute Umbilical hernia acute UTI (urinary tract infection) acute Acute UTI acute ARTURO (acute kidney injury) ac inupiat Weakness acute [facility] Work Phone: Evaluation note* Diagnosis [...] Shortness of breath 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 Stage 3b chronic [...] Cough Current smoker documented in this encounter [facility] Work Phone: Evaluation note* Diagnosis Shortness of breath documented in this encounter [facility] Work Phone: Evaluation note* Diagnosis Shortness of breath 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 History of PTCA Postsurgical percutaneous transluminal coronary angioplasty status Essential hypertension Unspecified essential hypertension Hyperlipidemia, mixed Mixed hyperlipidemia Obstructive sleep apnea syndrome Obstructive sleep apnea (adult) (pediatric) BMI 35.0-35.9,adult Current smoker Chronic hypoxemic respiratory failure (Multi) Chronic respiratory failure Encounter to discuss test results Other specified counseling documented in this encounter [facility] Work Phone: Evaluation note* Diagnosis Onset Date Resolution Status Nausea and vomiting acute Pneumonia acute UTI (urinary tract infection) acute [facility] Work Phone: Evaluation note* Diagnosis Onset Date Resolution Status CAD (coronary artery disease) acute GERD (gastroesophageal reflux disease) acute Nausea and vomiting acute Pneumonia acute UTI (urinary tract infection) acute COPD (chronic obstructive pulmonary disease) chronic [facility] Work Phone: Evaluation note* Diagnosis Panlobular emphysema (CMS/HCC)- Primary Other emphysema Stage 3a chronic kidney disease (HCC) (CMS/HCC) 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 (CMS/HCC) Mixed hyperlipidemia (CMS/HCC) Mixed hyperlipidemia Failed back surgical syndrome Primary osteoarthritis of left knee Essential hypertension (CMS/HCC) Unspecified essential hypertension Medicare annual wellness visit, subsequent ACP (advance care planning) Other specified counseling Centrilobular emphysema (CMS/HCC)- Primary Foraminal stenosis of lumbar region Failed back syndrome Other unspecified back disorder Right Achilles tendinitis- Primary Other specified disorders of synovium, left ankle and foot Venous insufficiency Unspecified venous (peripheral) insufficiency Onychomycosis Dermatophytosis of nail Toe pain, left Pain in soft tissues of limb Toe pain, right Pain in soft tissues of limb [facility] Diagnosis Stage 3a chronic kidney disease (HCC) ([facility]/HCC)- Primary Interstitial pulmonary disease, unspecified ([facility]) Primary osteoarthritis involving multiple joints Morbid (severe) obesity due to excess calories (E66.01) 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 ([facility]/HCC) Chronic heart failure with preserved ejection fraction ([facility]/HCC) Centrilobular emphysema ([facility]/HCC) Neural foraminal stenosis of lumbosacral spine Failed back surgical syndrome Mixed hyperlipidemia ([facility]) Mixed hyperlipidemia Acute cystitis without hematuria Anemia due to stage 3a chronic kidney disease (HCC) ([facility]) [facility] Diagnosis Failed back surgical syndrome Neural foraminal stenosis of lumbosacral spine documented [facility]* Diagnosis Heel spur, right- Primary Venous insufficiency Unspecified venous (peripheral) insufficiency Onychomycosis Dermatophytosis of nail Toe pain, left Pain in soft tissues of limb Toe pain, right Pain in soft tissues of limb Right Achilles tendinitis [facility] Diagnosis Other specified disorders of synovium, left ankle and foot- Primary Right Achilles tendinitis Venous insufficiency Unspecified venous (peripheral) insufficiency documented in this encounter [facility]* Diagnosis Chronic obstructive pulmonary disease with acute exacerbation ([facility])- Primary Sleep apnea, unspecified type Anxiety Anxiety state, unspecified Insomnia, unspecified type Closed fracture of sixth thoracic vertebra with routine healing, unspecified fracture morphology, subsequent encounter 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 [facility] Diagnosis Chronic obstructive pulmonary disease with acute exacerbation ([facility]-HCC)- Primary Pneumonia of right lower lobe due to infectious organism Gastroesophageal reflux disease without esophagitis Esophageal reflux Closed wedge compression fracture of T6 vertebra with routine healing, subsequent encounter Moderate episode of recurrent major depressive disorder ([facility]) Encephalopathy, unspecified type [facility] Diagnosis Pneumonia of right lower lobe due to infectious organism- Primary Chronic obstructive pulmonary disease with acute exacerbation (CMS-HCC) Sleep apnea, unspecified type Moderate episode of recurrent major depressive disorder (CMS-HCC) 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 Closed wedge compression fracture of T6 vertebra with routine healing, subsequent encounter [facility] Author Jolanta Mckenzie [facility] December 27, 2022 12:32am Note Date/Time December 26, 2022 11:0 5pm [facility] [address] [place] [address] Hospitalist H&P Signed with Addenda Patient: Gera Perdue MR#: [id number] : 1945 Acct:[id number] Age/Sex: 77 / F Adm Date: 3 Loc: 4N Room: [address] [place] [address] Type: ADM IN Attending Dr: Jolanta Mckenzie [...] any cardiac arrhythmia. Patient will likely require custodial facility on discharge. Addendum Documented By: Jolanta [...] % (Auto) 24.8 % (.) 12/26/22 19:36 [place] % (Auto) 10.1 % (.) 12/26/22 19:36 Eos % (Auto) 1.1 % (.) 12/26/22 19:36 Baso % (Auto) 0.5 % (.) 12/26/22 19:36 Nucleat RBC Rel Count 0.1 /100 WBC (0-0.5) 12/26/22 19:36 Neut # (Auto) 7.6 x10E3/uL (1.8-7.7) 12/26/22 19:36 Lymph # (Auto) 3.0 x10E3/uL (1.00-4.8) 12/26/22 19:36 [place] # (Auto) 1.2 x10E3/uL (0.0-0.8) H 12/26/22 [...] signed by MD SEAN Mann> 12/27/22 0022 [facility] Work Phone: History and physical note Author Jolanta Mckenzie [facility] July 10, 2023 1:50pm Note Date/Time July 10, 2023 1:44pm [facility] [address] [place] [address] Hospitalist H&P Signed Patient: Gera Perdue MR#: [id number] : 1945 Acct:[id number] Age/Sex: 77 / F Adm Date: 3 Loc: Room: [address] [place] [address] Type: ADM IN Attending Dr: Jolanta Mckenzie [...] negative unless noted below or in HPI [facility] Medical History Arthritis COPD (chronic [...] % (Auto) 31.5 % (.) 07/10/23 08:44 [place] % (Auto) 6.5 % (.) 07/10/23 08:44 Eos % (Auto) 0.4 % (.) 07/10/23 08:44 Baso % (Auto) 0.2 % (.) 07/10/23 08:44 Nucleat RBC Rel Count 0.1 /100 WBC (0-0.5) 07/10/23 08:44 Neut # (Auto) 13.1 x10E3/uL (1.8-7.7) H 07/10/23 08:44 Lymph # (Auto) 6.7 x10E3/uL (1.00-4.8) H 07/10/23 08:44 [place] # (Auto) 1.4 x10E3/uL (0.0-0.8) H 07/10/23 [...] pH 8.5 (5.0-9.0) 07/10/23 08:44 Ur Specific [place] 1.022 (1.001-1.030) 07/10/23 08:44 Urine Protein 30 [...] MD> 07/10/[address] [facility] Work Phone: History general Narrative - Reported* [...] diverticulosis, >10cm removed. no anastamosis Dr Fonseca, [facility]. Surgical History EGD Surgical History colostomy 01/07 per [facility] Surgical History Bowel resection with reversal o f colostomy 02-25-2015 Surgical History SKIN BIOPSY X 2 ON FACE Surgical History left IM nailing 09-02-20 Surgical History left hip FX 10/2020 Hospitalization History 6 child births Hospitalization History See Above Hospitalization History Kidney stones Hospitalization History [facility] [place] [facility] bowel obstruction 10/2019 Hospitalization History Fell/ UTI Hospitalization History [facility] pt fell left hip fr acture 10/2020 [employer] Other Hospital course Narrative No data available for this section [facility] Hospital Discharge instructions Additional Instructions Use the albuterol inhaler as prescribed here COPD exacerbation take prednisone as prescribed. Take Tylenol as needed for hip pain. Follow-up with your PCP for reevaluation in 5 to 7 days.[facility] Work Phone: Hospital Discharge instructions [...] precautions [facility] Work Phone: Hospital Discharge instructionsAmbulatory [...] wraps to BLE. Change daily and prn -[facility] Work Phone: Hospital Discharge instructions [...] precautions [facility] Work Phone: Hospital Discharge instructions No data available for this section [facility] filedocumented in this encounter [facility] filedocumented in this encounter [facility] on filedocumented in this encounter [facility]Not on filedocumented in this encounter [facility]Not on filedocumented in this encounter [facility]Not on filedocumented in this encounter [facility]ructionsNot on filedocumented in this encounter [facility] note Author Carla Hagan [facility] December 27, 2022 12:40pm Note Date/Time December 27, 2022 9:25 am [facility] [address] [place] [address] Hospitalist Progress Note Signed Patient: Gera Perdue MR#: [id number] : 1945 Acct:[id number] Age/Sex: 77 / F Adm Date: 3 Loc: 4N Room: [address] [place] [address] Type: ADM IN Attending Dr: Carla Hagan [...] 300 Mg Tab.Er.24h PO 12/27/23 08:59 QAM [facility] Calcium Carbonate 600 mg 12/27/22 09:00 Calcium Carbonate 500 Mg Tablet PO 12/27/23 08:59 DAILY [facility] Clopidogrel Bisulfate 75 mg 12/27/22 09:00 Clopidogrel Bisulfate 75 Mg Tablet PO 12/27/23 08:59 DAILY [facility] Heparin Sodium (Porcine) 5,000 unit 12/27/22 06:00 12/27/22 06:14 Heparin 5,000 Unit/Ml Vial SUBCUT 12/27/23 05:59 5,000 unit Q8HR JERILYN Administration Hydromorphone HCl 0.5 mg 12/27/22 03:58 Hydromorphone 0.5 Mg/0.5 Ml Syringe IV-PUSH Q4H PRN Pain Scale 8 - 10 Lisinopril 5 mg 12/27/22 09:00 Lisinopril 5 Mg Tablet PO 12/27/23 08:59 DAILY [facility] Metoprolol Succinate 50 mg 12/27/22 09:00 Metoprolol Succinate 50 Mg Tab.Er.24h PO 12/27/23 08:59 DAILY [facility] Nicotine 1 each 12/27/22 00:30 12/27/22 00:48 [...] 40 Mg Tablet. PO 12/27/23 08:59 DAILY [facility] Paroxetine HCl 40 mg 12/27/22 09:00 Paroxetine 20 Mg Tablet PO 12/27/23 08:59 QAM [facility] Pregabalin 75 mg 12/27/22 09:00 Pregabalin 75 Mg Capsule PO 06/25/23 08:59 BID [facility] Sodium Chloride 0 ml 12/26/22 19:02 12/26/22 [...] 15 Gm Tube TOPICAL 12/27/23 08:59 BID [facility] Vitamin D 50 mcg 12/27/22 09:00 Cholecalciferol 25 Mcg (1,000 Units) Tablet PO 12/27/23 08:59 DAILY [facility] A&P - Hospitalist Assessment/Plan (1) Fall: (2) [...] any cardiac arrhythmia.? Patient will likely require custodial facility on discharge. Documented By: Carla Hagan MD 12/27/22 0857 Signed By: <Electronically signed by Carla Hagan MD> 12/27/22 1240 <Electronically signed by DO SEAN Armas> 12/27/22 1138 [facility] Work Phone: Progress note Author Carla Hagan [facility] December 28, 2022 11:14am Note Date/Time December 28, 2022 9:27 am [facility] [address] [place] [address] Hospitalist Progress Note Signed Patient: Gera Perdue MR#: [id number] : 1945 Acct:[id number] Age/Sex: 77 / F Adm Date: 3 Loc: 4N Room: 0L6362-0 Type: ADM IN Attending Dr: Carla Hagan [...] any cardiac arrhythmia.? Patient will likely require custodial facility on discharge. Patient is medically cleared for discharge pending placement approval. The patient would likely need to have additional work-up, investigation and therapeutic intervention but will be determined based on the clinical progression and follow-up test result Documented By: Carla Hagan MD 12/28/22 0918 Signed By: <Electronically signed by Carla Hagan MD> 12/28/22 1114 <Electronically signed by DO SEAN Armas> 12/28/22 1048 [facility] Work Phone: Progress note Author Carla Hagan [facility] December 29, 2022 10:00am Note Date/Time December 29, 2022 10:0 0am [facility] [address] [place] [address] Hospitalist Progress Note Signed Patient: Gera Perdue MR#: [id number] : 1945 Acct:[id number] Age/Sex: 77 / F Adm Date: 3 Loc: 4N Room: 2Q0608-3 Type: ADM IN Attending Dr: Carla Hagan [...] place, time and person. Morbidly obese HEENT: [place] conjunctiva and NL buccal mucosa Neck: Supple, [...] signed by Carla Hagan MD> 12/29/22 1000 [facility] Work Phone: Progress note Author Carla Hagan [facility] December 30, 2022 9:53am Note Date/Time December 30, 2022 9:53 am [facility] [address] [place] [address] Hospitalist Progress Note Signed Patient: Gera Perdue MR#: [id number] : 1945 Acct:[id number] Age/Sex: 77 / F Adm Date: 3 Loc: 4N Room: [address] [place] [address] Type: ADM IN Attending Dr: Carla Hagan [...] place, time and person. Morbidly obese HEENT: [place] conjunctiva and NL buccal mucosa Neck: Supple, [...] Tab.Er.24h PO 12/27/23 08:59 50 mg DAILY JERLIYN Administration Nicotine 1 each 12/27/22 00:30 12/30/22 [...] anemia Plan is to discharge patient to custodial unit for short period of time for [...] signed by Carla Hagan MD> 12/30/22 0953 [facility] Work Phone: Progress note Author Jolanta Mckenzie [facility] July 11, 2023 12:47pm Note Date/Time July 11, 2023 10:10am [facility] [address] [place], [place] [id number] Hospitalist Progress Note Signed with Addenda Patient: Gera Perdue MR#: [id number] : 1945 Acct:[id number] Age/Sex: 77 / F Adm Date: 3 Loc: 3T Room: [address] [place] [address] Type: ADM IN Attending Dr: Jolanta Mckenzie [...] 1,000 Ml IV 07/09/24 13:59 75 mls/hr .[id number] JERILYN Administration Ceftriaxone Sodium 1 gm in [...] signed by Jolanta Mckenzie MD> 07/11/23 1246 [facility] Work Phone: Progress note Author Jolanta Mckenzie [facility] July 12, 2023 3:00pm Note Date/Time July 12, 2023 2:16pm [facility] [address] [place] [address] Hospitalist Progress Note Signed with Addenda Patient: Gera Perdue MR#: [id number] : 1945 Acct:[id number] Age/Sex: 77 / F Adm Date: 3 Loc: Room: [address] [place] [address] Type: ADM IN Attending Dr: Jolanta Mckenzie [...] and switch to oral prednisone. PT recommended custodial facility which patient is refusing with plan [...] 1,000 Ml IV 07/09/24 13:59 75 mls/hr .[id number] JERILYN Administration Ceftriaxone Sodium 1 gm in [...] signed by Jolanta Mckenzie MD> 07/12/23 1457 [facility] Work Phone: Progress note Author Jolanta Mckenzie [facility] July 13, 2023 1:59pm Note Date/Time July 13, 2023 10:40am [facility] [address] [place] [address] Hospitalist Progress Note Signed with Ling Patient: Gera Perdue MR#: [id number] : 1945 Acct:[id number] Age/Sex: 77 / F Adm Date: 3 Loc: Room: [address] [place] [address] Type: ADM IN Attending Dr: Jolanta Mckenzie [...] but patient also on steroid. Discussed regarding custodial facility she has not decided yet. Give [...] signed by Jolanta Mckenzie MD> 07/13/[address] [facility] Work Phone: Progress note No data available for this section [facility] Reason for referral (narrative)* Consultation (Routine) - Pending Review Specialty Diagnoses / Procedures Referred By Susanne russell Referred To Contact Pain Medicine Diagnoses Neural foraminal stenosis of lumbosacral spine Procedures PA OFFICE/OUTPATIENT NEW HIGH MDM 60 MINUTES Kiran Gutierrez NP [address] [place] [address] Prasad Ambrosio MD [address] [place] [address] Referral ID Status Reason Start Date Expiration Date Visits Requested Visits Authorized [id number] Pending Review Specialty Services Required 06/22/2024 12/19/2024 1 1 [facility] Summary Purpose Family History Relationship Condition Age [...] Documents on File Type Date Recorded Patient Key Attendant Expl anation Advance Directives and Living Will Power of Regional Director Of Admissions Latest Code Status on File Code Status Date Activated Date Inactivated Comments Full Code 08/02/2019 12:07 AM Advance Directive Response Recorded Date/ Time Advance Directives Yes May 13 2:57pm Advance Directive Response Recorded Date/ Time Advance Directives Yes May 13 1:57pm Documents on File Type Date Recorded Patient Key Attendant Expl anation DNR Physician Order 10/29/2023 8:25 AM Durable Power of Regional Director Of Admissions 10/29/2023 6:51 AM Latest Code Status on File Code Status Date Activated Date Inactivated Comments DNR Comfort Care Arrest (DNR -CCA) [place] 10/11/2023 11:48 AM 10/23/2023 1:09 PM Code Status History Code Status Date Activated Date Inactivated Comments Full Code 10/05/2023 8:00 PM 10/11/2023 11:48 AM Date Activated Date Inactivated Comments 02/19/2024 6:21 PM 02/25/2024 8:07 PM Date Activated Date Inactivated Comments 10/11/2023 11:48 AM 10/23/2023 1:09 PM Date Activated Date Inactivated Comments 10/05/2023 8:00 PM 10/11/2023 11:48 AM Hospital Course * Ellen Gonzalez MD - 08/04/2019 1:39 PM EDT [facility] Discharge Summary Patient ID: Gera Perdue : 1945 ACCOUNT: [id number] Patient's PCP: Physician Generic (Inactive) Admit Date: [...] Assisted Dressing Assisted Toileting Assisted Feeding Independent Poultry Dresser Independent Med Delivery whole Wound Care Documentation [...] Time of Hospital Discharge: Respiratory Treatments: see [facility] Oxygen Therapy: is not on home oxygen [...] applicable) Name: Address: Dialysis Schedule: Phone: Fax: Electrodynamicist/Video Surveillance Technician signature: {Esignature:[id number]} PHYSICIAN SECTION Prognosis: Good Condition at Discharge: [...] sent through Care Everywhere. * Low-Fiber Diet (Urdu) documented in this encounter History of Present Illness * Ellen Gonzalez MD - 08/04/2019 10:03 AM EDT [facility] Progress Note 08/04/2019 10:03 AM Name: Gera Perdue Acct: [id number] Room: [facility]6-01 Day: 3 Admit Date: 08/01/2019 11:58 PM [...] Gonzalez MD - 08/03/2019 12:24 PM EDT [facility] Progress Note 08/03/2019 12:24 PM Name: Gera Perdue Acct: [id number] Room: [address] [place] [address] Day: 2 Admit Date: 08/01/2019 11:58 PM [...] Net 1893 ml Labs: Hematology: Recent Labs 08/02/19 0608/03/19 0505 WBC 9.3 7.8 RBC 4.19 4.10 [...] 6.4 6.2* RADIOLOGY: No new images Sloane Alston DO08/03/19, 6:30 AM Attending Note I have reviewed the above [facility] resident progress note and I either performed [...] 08/02/2019 9:16 AM EDT Attempted to call [facility] pharmacy in [place] to retrieve home medication list, but pharmacy does not open until 10:00 am. [employer] will attempt again after this time. * [...] Coronary atherosclerosis of unspecified type of vessel, tribal or graft Mixed hyperlipidemia Essential hypertension Unspecified [...] XR chest 2 views Jenna Engle MD [address] [place] [address] Referral ID Status Reason Start Date Expiration Date Visits Requested Visits Authorized [id number] Authorized Perform Procedure 01/06/2024 01/05/2025 1 1 Specialty Diagnoses / Procedures Referred By Contac t Referred To Contact Diagnoses Shortness of breath Procedures ECG 12 Lead Jenna Engle MD [address] [place] [address] Referral ID Status Reason Start Date Expiration Date V isits Requested Visits Authorized [id number] Authorized 01/06/2024 01/05/2025 1 1 Specialty Diagnoses / Procedures Referred By Contac t Referred To Contact Cardiology Diagnoses Shortness of breath Procedures Follow Up In Cardiology Jenna Engle MD [address] [place] [address] Jenna Engle MD [address] [place] [address] Referral ID Status Reason Start Date Expiration Date V isits Requested Visits Authorized [id number] Authorized 01/06/2024 01/05/2025 1 1 Specialty Diagnoses / Procedures Referred By Contac t Referred To Contact Cardiology Diagnoses Shortness of breath Procedures Transthoracic Echo Complete PA ECHO TTHRC R-T 2D W/WOM-MODE COMPL SPEC&COLR D Jenna Engle MD [address] [facility] [address] [place] [address] Referral ID Status Reason Start Date Expiration Date Visits Requested Visits Authorized [id number] Pending Review Perform Procedure 01/06/2024 01/05/2025 1 1 Specialty Diagnoses / Procedures Referred By Contac t Referred To Contact Mud Jack Nozzleman Diagnoses Essential hypertension (CMS/HCC) Stage 3a chronic kidney disease (HCC) ([facility]/HCC) Sepsis with acute renal failure without septic shock, due to unspecified organism, unspecified acute renal failure type (CMS/HCC) Medication management Procedures PA OFFICE/OUTPATIENT NEW HIGH MDM 60 MINUTES Lilliam Cheek, YOUTH NUTRITIONAL MONITOR [address] [place] [address] [address] Referral ID Status Reason Start Date Expiration Date Visits Requested Visits Authorized [id number] Pending Review Specialty Services Required 12/09/2023 06/06/2024 1 1 Specialty Diagnoses / Procedures Referred By Contac t Referred To Contact Home Health Services Diagnoses SOB (shortness of breath) Wheezing Urinary tract bacterial infections Essential hypertension (CMS/HCC) Mixed hyperlipidemia (CMS/HCC) Stage 3a chronic kidney disease (HCC) ([facility]/HCC) Sepsis with acute renal failure without septic shock, due to unspecified organism, unspecified acute renal failure type ([facility]/HCC) Medication management Lilliam Cheek, YOUTH NUTRITIONAL MONITOR [address] [place] [address] Referral ID Status Reason Start Date Expiration Date Visits Requested Visits Authorized [id number] Pending Review Specialty Services Required 12/09/2023 02/07/[phone] Specialty Diagnoses / Procedures Referred By Contac t Referred To Contact Obstetrics and Gynecology Diagnoses Urinary tract bacterial infections Female bladder prolapse Procedures PA OFFICE/OUTPATIENT NEW HIGH MDM 60 MINUTES Lilliam Cheek, YOUTH NUTRITIONAL MONITOR [address] [place] [address] Rinkes, Cee E, DO [address] [place] [address] Referral ID Status Reason Start Date Expiration Date Visits Requested Visits Authorized [id number] Pending Review Specialty Services Required 12/09/2023 06/06/2024 1 1 Additional Source Comments INFORMATION SOURCE (unrecogn ized section and content) DATE CREATED AUTHOR 07/12/2018 [facility] DATE CREATED AUTHOR AUTHOR'S ORGANIZ ATION 08/29/2019 [facility] DATE CREATED AUTHOR AUTHOR'S ORGANIZ ATION 12/24/2020 [facility] DATE CREATED AUTHOR AUTHOR'S ORGANIZ ATION 05/01/2022 [facility] dical Specialist DATE CREATED AUTHOR AUTHOR'S ORGANIZ ATION 01/02/2023 [facility] DATE CREATED AUTHOR AUTHOR'S ORGANIZ ATION 01/21/2023 [facility] DATE CREATED AUTHOR AUTHOR'S ORGANIZ ATION 02/16/2024 [facility] DATE CREATED AUTHOR AUTHOR'S ORGANIZ ATION 02/26/2024 [facility] DATE CREATED AUTHOR AUTHOR'S ORGANIZ ATION 04/23/2024 [facility] DATE CREATED AUTHOR AUTHOR'S ORGANIZ ATION 05/02/2024 [facility] DATE CREATED AUTHOR AUTHOR'S ORGANIZ ATION 07/04/2024 [facility] dical Specialists EPIC DATE CREATED AUTHOR AUTHOR'S ORGANIZ ATION 09/27/2024 [facility] DATE CREATED AUTHOR AUTHOR'S ORGANIZ ATION 10/09/2024 [facility] Reason for Visit (unrecogniz ed section and content) Status Reason Specialty Diagnoses / Procedures Referre d By Contact Referred To Contact Diagnoses Small bowel obstruction (HCC) Verenice Shea MD [address] [address] [facility] Reason Comments Hospital Follow-up Reason Comments New Patient Visit Old [facility] patient Specialty Diagnoses / Procedures Referred By Contac t Referred To Contact Cardiology Diagnoses Shortness of breath Procedures Transthoracic Echo Complete PA ECHO TTHRC R-T 2D W/WOM-MODE COMPL SPEC&COLR D Jenna Engle MD [address] [facility] [address] [place] [address] Referral ID Status Reason Start Date Expiration Date Visits Requested Visits Authorized [id number] Authorized Perform Procedure 01/06/2024 01/05/2025 1 1 Reason Comments Follow-up 1m echo results Specialty Diagnoses / Procedures Referred By Contac t Referred To Contact Cardiology Diagnoses Shortness of breath Procedures Follow Up In Cardiology Jenna Engle MD [address] [facility] [address] [place] [address] Jenna Engle MD [address] [facility] [address] [place] [address] Referral ID Status Reason Start Date Expiration Date V isits Requested Visits Authorized [id number] Authorized 01/06/2024 01/05/2025 1 1 Reason Comments Hospital Follow-up Reason Comments 1 month follow up Patient presents tomynor mcknight for a 1 month follow up. She has a complaint of urinary frequency and burning with urination. She lost her trelegy inhaler and would like a new one. She would also like an Rx for something for her leg pain. Reason Comments Med Refill Reason Comments Foot Pain Rt heel pain Reason Comments Follow-up Rt achilles inj Reason Onset Date Comments Neuro Appt 10/30/2023 Care Teams (unrecognized sec tion and content) [...] Morrissey PA-C Emergency Provider Active Gustavo Salas , Primary Care Provider Active Jolanta Mckenzie MD Admit Provider, Attending Provider Active Team Status: Inactive Member Role Status Dates Maddy Morrissey PA-C Emergency Provider Active Gustavo Salas , Primary Care Provider Active Jolanta Mckenzie MD Admit Provider Active Jesus Alberto Aquino MD Attending Provider Active Team Status: Inactive Member Role Status Dates Gustavo Salas , DO Primary Care Provider Active Kadie Jones [facility] Emergency Provider Active Team Status: Active [...] Aquino MD Admit Provider, Attending Provider Active Electronic Operator Relationship Specialty Start Date End Date Mely Camarillo APRN-CNP [address] [place] [address] PCP - General Family Medicine 04/08/19 Electronic Operator Relationship Specialty Start Date End Date Mely Camarillo APRN-CNP [address] [place] [address] PCP - General Family Medicine 04/08/19 Electronic Operator Relationship Specialty Start Date End Date Gustavo Salas DO [address] [place] [address] PCP - General Internal Medicine 12/09/23 Leah Burgos, LASHAY [address] [place] [address] Registered Nurse Internal Medicine 12/09/23 Electronic Operator Relationship Specialty Start Date End Date Gustavo Salas DO [address] [place] [address] PCP - General Internal Medicine 01/06/24 Electronic Operator Relationship Specialty Start Date End Date Gustavo Salas [address] [place] [address] PCP - General Internal Medicine 01/06/24 Electronic Operator Relationship Specialty Start Date End Date Gustavo Salas [address] [place] [address] PCP - General Internal Medicine 01/06/24 Team Status: Inactive Member Role Status Dates Gustavo Salas DO Primary Care Provider Active Start: January 06, 2024 End: January 06, 2024 Jenna Engle MD Attending Provider Active Star t: January 06, 2024 End: January 06, 2024 Team Status: Active Member Role Status Dates Gustavo Salas DO Primary Care Provider Active Start: February 14, 2024 Kadie Jones [facility]- Emergency Provider Active Start: February 14, 2024 Lucho Grullon MD Admit Provider, Atte nding Provider Active Start: February 14, 2024 Team Status: Inactive Member Role Status Dates Gustavo Salas DO Primary Care Provider Active Start: February 14, 2024 End: February 17, 2024 Kadie Jones [facility]- Emergency Provider Active Start: February 14, 2024 End: February 17, 2024 Lucho Grullon MD Admit Provider Active Start: February 14, 2024 End: February 17, 2024 Michoacano Mckenzie MD Attending Provider Active Start: February 14, 2024 End: February 17, 2024 Team Status: Active Member Role Status Dates Gustavo Salas DO Primary Care Provider Active Start: February 14, 2024 Kadie Jones [facility]- Emergency Provider Active Start: February 14, 2024 Lucho Grullon MD Admit Provider, Atte nding Provider, Other Provider Active Start: February 14, 2024 Electronic Operator Relationship Specialty Start Date End Date Gustavo Salas DO [address] [place] [address] PCP - General Internal Medicine 12/09/23 Gustavo Salas DO [address] [place] [address] PCP - [facility] 03/28/24 10/27/24 Electronic Operator Relationship Specialty Start Date End Date Gustavo Salas DO [address] [place] [address] PCP - General Internal Medicine 12/09/23 Gustavo Salas DO [address] [place] [address] PCP - [facility] 03/28/24 10/27/24 Electronic Operator Relationship Specialty Start Date End Date Gustavo Salas DO [address] [place] [address] PCP - General Internal Medicine 12/09/23 Gustavo Salas DO [address] [place] [address] PCP - [facility] 03/28/24 10/27/24 Electronic Operator Relationship Specialty Start Date End Date Gustavo Salas DO [address] [place] [address] PCP - General Internal Medicine 12/09/23 Gustavo Salas DO [address] [place] [address] PCP - [facility] 03/28/24 10/27/24 Electronic Operator Relationship Specialty Start Date End Date Gustavo Salas DO [address] [place] [address] PCP - General Internal Medicine 12/09/23 Electronic Operator Relationship Specialty Start Date End Date Gustavo Salas DO [address] [place] [address] PCP - General Internal Medicine 12/09/23 Electronic Operator Relationship Specialty Start Date End Date Gustavo Salas DO [address] [place] [address] PCP - General Internal Medicine 12/09/23 Electronic Operator Relationship Specialty Start Date End Date Gustavo Salas DO [address] [place] [address] PCP - General Internal Medicine 12/09/23 Electronic Operator Relationship Specialty Start Date End Date Gustavo Salas DO [address] [place] [address] PCP - General Internal Medicine 12/09/23 Gustavo Salas DO [address] [place] [address] PCP - [facility] 03/28/24 10/27/24 Electronic Operator Relationship Specialty Start Date End Date Gustavo Salas DO [address] [place] [address] PCP - General Internal Medicine 12/09/23 Electronic Operator Relationship Specialty Start Date End Date Gustavo Salas DO [address] [place] [address] PCP - General Internal Medicine 12/09/23 Electronic Operator Relationship Specialty Start Date End Date Gustavo Salas DO [address] [place] [address] PCP - General Internal Medicine 02/19/24 Electronic Operator Relationship Specialty Start Date End Date Gustavo Salas DO [address] [place] [address] PCP - General Internal Medicine 02/19/24 Electronic Operator Relationship Specialty Start Date End Date Mely Camarillo APRN-INSURANCE CLAIMS EXAMINER [address] [place] [address] PCP - General Family Medicine 04/08/19 Goals (unrecognized section and content) Goals may [...] BE BASED ON THE PRIMARY CLINICAL RECORDS. [employer] [facility]. provides no warranty or guarantee of the accuracy or completeness of information in this document.
[2024-12-07] MEDS: ENOXAPARIN SODIUM 40 MG/0.4 ML SYRINGE SUBQ (21:44)
[2024-12-07] MEDS: 0.9 % SODIUM CHLORIDE 1,000 ML 100 ML IV (21:44)
[2024-12-07] MEDS: PREGABALIN 75 MG CAPSULE PO (21:45)
[2024-12-07] MEDS: DIPHENHYDRAMINE HCL 25 MG CAPSULE PO (21:45)
[2024-12-07] MEDS: LINEZOLID 600 MG TABLET PO (21:45)
[2024-12-07] MEDS: CARVEDILOL 25 MG TABLET PO (21:45)
[2024-12-08] VITALS (13 sets, daily range): BP systolic 94–122; BP diastolic 59–65; PULSE 64–83; TEMP 36.6–36.8; O2SAT 93–96
--- NOTE | 2024-12-08 06:12 | P.HP_ITS ---
HPI H&P: HPI History of Present Illness Chief complaint: WEAK, N/V, UTI Narrative: Patient presented to the emergency room with weakness, mild nausea vomiting and mild abdominal pain, only finding on workup was acute UTI. White blood cell count was normal, liver function was normal, lactate was negative, does have some mild hypomagnesemia. When I saw patient up on the medical surgical floor, she was resting comfortably in bed without any specific complaint. Opioid HPI Opioid Management Most Recent Pain and Opioid Data: Last Pain Scale 2 12/08/24 08:24 12/08/24 Last Pain Intensity 2 10/13/24 13:10 10/13/24 Last Pain Assessment 12/08/24 08:24 Last MAR Pain Assessment 12/08/24 08:19 Last ORT Total Score 3 12/07/24 20:04 12/07/24 Last ORT Risk Category Low Risk 12/07/24 20:04 12/07/24 Review of Systems ROS Status of ROS 10 or more systems reviewed and unremark able except as noted in history and below PFSH [facility] Medical History (Updated 12/07/24 @ 19:00 by JEROME Pike) Dyspnea ?R06.00 - Dyspnea, unspecified (ICD-10) Compression fracture Back pain ?M54.9 - Dorsalgia, unspecified (ICD-10) Strain of lumbar region ?S39.012A - Strain of muscle, fascia and tendon of lower back, initial encounter (ICD-10) Elevated d-dimer ?R79.89 - Other specified abnormal findings of blood chemistry (ICD-10) Pneumonia ?J18.9 - Pneumonia, unspecified organism (ICD-10) Chronic respiratory failure with hypoxia ?J96.11 - Chronic respiratory failure with hypoxia (ICD-10) Anemia ?D64.9 - Anemia, unspecified (ICD-10) HLD (hyperlipidemia) ?E78.5 - Hyperlipidemia, unspecified (ICD-10) ARMAND (obstructive sleep apnea) ?G47.33 - Obstructive sleep apnea (adult) (pediatric) (ICD-10) COPD (chronic obstructive pulmonary disease) ?J44.9 - Chronic obstructive pulmonary disease, unspecified (ICD-10) HTN (hypertension) ?I10 - Essential (primary) hypertension (ICD-10) Surgical History History of colon surgery ?Z98.890 - Other specified postprocedural states (ICD-10) Family History Grandmother Family history of CHF (congestive heart failure) Family history of cancer Family history of hypertension Family history of myocardial infarction Mother Family history of CHF (congestive heart failure) Family history of cancer Family history of hypertension Family history of myocardial infarction Uncle Family history of COPD (chronic obstructive pulmonary disease) Aunt Family history of cancer Social History Within the past year, how often did you have a drink containing alcohol: never Within the past year, how often did you have six or more drinks on one occasion: never Score interpretation: A score less than 3 is consistent with normal alcohol co nsumption. 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 Highest level of school completed/degree received: 11th grade Are you now , , , , never or living with a partner: In a typical week, how many times do you talk on the telephone with family, friends, or neighbors: 3 or more times per week How often do you get together with friends or relatives: 3 or more times per week How often do you attend moravian or jain services: 1-3 times per year Do you belong to any clubs or organizations such as moravian groups unions, fraternal or athletic groups, or school groups: yes Total score: 2 Score interpretation: A score of greater than or equal to 2 indicates the lowest level of social isolation. Little interest or pleasure in doing things: several days Feeling down, depressed, or hopeless: several days Feel stressed/tense/nervous/anxious/difficulty sleeping: to some extent Do you think of yourself as: decline to answer Gender Identity: female Meds Home Medications and Allergies Home Medications ?Medication ?Instructions ?Recorded ?Confirmed ?Type albuterol sulfate 90 mcg/actuation 2 puff inhalation Q4H PRN 08/28/23 12/07/24 History aerosol inhaler shortness of breath or wheezing cholecalciferol (vitamin D3) 50 50 mcg PO DAILY 08/28/23 12/07/24 History mcg (2,000 unit) tablet pregabalin 75 mg capsule 75 mg PO BID 08/28/23 12/07/24 History melatonin 5 mg tablet 5 mg PO QPM 08/14/24 12/07/24 History fluticasone fur. 100 mcg-umeclid 1 inh inhalation QAM 09/19/24 12/07/24 History 62.5 mcg-vilant 25 mcg inhalat.powder (Trelegy Ellipta) polyethylene glycol 3350 17 17 g PO DAILY PRN constipation 10/01/24 12/07/24 Rx gram/dose oral powder (Miralax) #510 grams calcitonin (salmon) 200 1 spray intranasal QD #3.7 mL 10/08/24 12/07/24 Rx unit/actuation nasal spray carvedilol 25 mg tablet (Coreg) 25 mg PO BID 30 days #60 tabs 10/15/24 12/07/24 Rx linezolid 600 mg tablet 600 mg PO BID 13 days #26 tabs 10/15/24 12/07/24 Rx alendronate 70 mg tablet 70 mg PO .Weekly 12/07/24 12/07/24 History atorvastatin 40 mg tablet 40 mg PO DAILY 12/07/24 12/07/24 History bupropion HCl 300 mg 24 hr tablet, 300 mg PO DAILY 12/07/24 12/07/24 History extended release cholecalciferol (vitamin D3) 50 2,000 unit PO DAILY 12/07/24 12/07/24 History mcg (2,000 unit) capsule clopidogrel 75 mg tablet 75 mg PO DAILY 12/07/24 12/07/24 History furosemide 20 mg tablet 20 mg PO DAILY 12/07/24 12/07/24 History cefdinir 300 mg capsule 600 mg (2 x 300 mg) PO DAILY #20 12/08/24 Rx caps Allergies Allergy/AdvReac Type Severity Reaction Status Date / Time aspirin Allergy Severe Hives Verified 12/07/24 16:24 Exam Constitutional Vital Signs, click to edit/add: Last Vital Signs Temp 98.3 F 12/08/24 04:00 Pulse 80 12/08/24 06:00 Resp 20 12/08/24 04:00 BP 122/63 12/08/24 04:00 Pulse Ox 94 L 12/08/24 04:00 O2 Del Method Nasal Cannula 12/08/24 04:00 O2 Flow Rate 3 12/07/24 20:29 Documenting provider has reviewed patient's vital signs: yes Common normals: no apparent distress Chest Common normals: inspection of chest normal Respiratory Common normals: normal respiratory effort and no retractions Cardio Common normals: regular rate and regular rhythm GI Common normals: Normal to inspection, nondistended, normoactive bowel sounds present and soft to palpation; tender (Mild diffuse tenderness, no rebound, more suprapubic) Extremity Common normals: normal to inspection Results Labs Labs: Short CBC 12/07/24 Range/Units 16:46 WBC 10.1 (4.0-11.0) 10^3/uL Hgb 11.4 L (12.0-16.0) g/dL Hct 38.4 (36.0-48.0) % Plt Count 328 (150-450) 10^3/uL BMP 12/07/24 16:46 Sodium 144 Potassium 3.8 Chloride 104 Carbon Dioxide 33.4 H BUN 11.0 Creatinine 0.99 Glucose 101 Calcium 9.6 Liver Function 12/07/24 Range/Units 16:46 Total Bilirubin 0.3 (0.2-1.0) mg/dL AST 13 L (15-37) U/L ALT 14 (14-59) U/L Alkaline Phosphatase 97 (46-116) U/L Albumin 2.8 L (3.4-5.0) g/dL Urine 12/07/24 Range/Units 18:30 Urine Color Yellow (YELLOW) Urine Clarity Clear (CLEAR) Urine pH 5.5 (5.0-9.0) Ur Specific [place] >=1.030 A (1.005-1.025) Urine Protein Negative (NEG/TRACE) mg/dL Urine Glucose (UA) Negative (NEGATIVE) mg/dL ABG ABG results: 12/07/24 16:46 VBG pH 7.359 VBG pCO2 57.3 H Assessment and Plan Assessment and Plan (1) Nausea & vomiting: (2) Acute UTI (urinary tract infection): Plan Admission findings: Sinus tachycardia, respiratory distress, uncontrolled high blood pressure, normal white blood cell count, positive urinalysis consistent with acute UTI Acute UTI with mild dehydration-IV fluids and started patient on IV antibiotics, Rocephin, if doing well later today possible discharge to home later today Hypomagnesemia-supplement Iron deficiency anemia-monitor daily Mild asthma without acute exacerbation Depression-continue with home medications Hypercholesterolemia continue with home medications Coronary artery disease continue with home medications Recent MRSA bacteremia-linezolid is still listed need to check on when cultures were completed Insomnia-continue with home medications Admission status: Patient with weakness secondary to acute UTI-started patient off as observational status, if doing well later today possible discharge to home later today, if medically necessary treatment will span 2 midnights will change patient to inpatient status
[2024-12-08 06:18] LABS: Basophils Absolute Auto 0.1 10^3/uL (0.0-0.1); Basophils Percent Auto 0.7 % (0.2-2.0); Eosinophils Absolute Auto 0.2 10^3/uL (0.0-0.7); Eosinophils Percent Auto 2.1 % (0.9-7.0); Hematocrit 31.9 % (36.0-48.0); Hemoglobin 9.4 g/dL (12.0-16.0); Immature Granulocytes Abs Auto 0.03 10^3/uL (0.00-0.03); Immature Granulocytes Pct Auto 0.4 % (0.0-0.5); Lymphocytes Absolute Auto 2.5 10^3/uL (1.2-3.8); Lymphocytes Percent Auto 32.2 % (20.5-60.0); Mean Corpuscular HGB Conc 29.5 g/dL (29.9-35.2); Mean Corpuscular Hemoglobin 25.7 pg (26.7-34.0); Mean Corpuscular Volume 87.2 fL (81.0-99.0); Mean Platelet Volume 8.9 fL (9.5-13.5); Monocytes Absolute Auto 0.8 10^3/uL (0.3-0.8); Monocytes Percent Auto 10.9 % (1.7-12.0); Neutrophils Absolute Auto 4.1 10^3/uL (1.4-6.5); Neutrophils Percent Auto 53.7 % (43.0-75.0); Platelet Count 280 10^3/uL (150-450); Red Blood Count 3.66 10^6/uL (4.20-5.40); Red Cell Distribution Width 18.4 % (11.0-15.0); White Blood Count 7.7 10^3/uL (4.0-11.0)
[2024-12-08 06:33] LABS: Alanine Aminotransferase 10 U/L (14-59); Albumin Globulin Ratio 0.6; Albumin Level 2.1 g/dL (3.4-5.0); Alkaline Phosphatase 72 U/L (46-116); Anion Gap 9.6; Aspartate Amino Transferase 10 U/L (15-37); BUN Creatinine Ratio 8.9; Bilirubin Total 0.3 mg/dL (0.2-1.0); Calcium 8.5 mg/dL (8.5-10.1); Chloride 109 mmol/L (98-107); Estimated GFR (African America >60 (>=60 mL/min/1.73m^2); Estimated GFR (Non-African Ame 53 (>=60 mL/min/1.73m^2); Globulin 3.7 g/dL; Glucose 89 mg/dL (74-106); Magnesium 1.2 mg/dL (1.8-2.4); Potassium 3.6 mmol/L (3.5-5.1); Sodium 146 mmol/L (136-145); Total Protein 5.8 g/dL (6.4-8.2)
[2024-12-08] MEDS: 0.9 % SODIUM CHLORIDE 1,000 ML 100 ML IV (08:14)
[2024-12-08] MEDS: BUPROPION HCL 150 MG XL TABLET 24H 300 MG PO (08:18)
[2024-12-08] MEDS: MAGNESIUM SULFATE IN WATER 4 GM/100 ML PIGGYBACK IV (08:18)
[2024-12-08] MEDS: ATORVASTATIN CALCIUM 40 MG TABLET PO (08:19)
[2024-12-08] MEDS: CHOLECALCIFEROL (VITAMIN D3) 25 MCG/1,000 UNITS TABLET 50 MCG PO (08:19)
[2024-12-08] MEDS: LINEZOLID 600 MG TABLET PO (08:19)
[2024-12-08] MEDS: MAGNESIUM OXIDE 400 MG TABLET PO (08:19)
[2024-12-08] MEDS: CARVEDILOL 25 MG TABLET PO (08:19)
[2024-12-08] MEDS: ACETAMINOPHEN 325 MG TABLET 650 MG PO (08:19)
[2024-12-08] MEDS: CLOPIDOGREL BISULFATE 75 MG TABLET PO (08:19)
[2024-12-08] MEDS: PREGABALIN 75 MG CAPSULE PO (08:19)
--- NOTE | 2024-12-08 08:39 | CM.NOTE ---
Rounds made with Dr. Oseguera. Dr. Oseguera reviews plan of care. Potential discharge later today if feeling better. Verbalizes understanding.
[2024-12-08] MEDS: HYOSCYAMINE SULFATE 0.125 MG TAB.SUBL SL ×2 (09:50→12:36)
--- NOTE | 2024-12-08 10:41 | SWNOTE1 ---
Medicare Outpatient Observation Notice reviewed and discussed with patient. Pt. verbalized understanding and signed the form. Original given to patient and copy placed in patient?s chart.
--- NOTE | 2024-12-08 10:41 | SWNOTE1 ---
SW met with pt to discuss dc needs. Pt lives at home with daughter and grand-daughter. They do assist pt as needed at home. Pt uses a rollator at home. Pt wears 3 liters 02 continuous at home from [employer]. Pt used to go to adult daycare 4 days a week, but has not been feeling well so has not gone. Pt has Pass[employer] services as well. Pt voiced she still has HH services coming in as well. SW to call and verify. Pt has no concerns about discharge. Her daughter is off work at 2:00 and can get her. Pt voiced she is ready to go home and sleep. SW did speak to therapy and pt is at baseline. SW called [facility] and pt is current with them. SW to resume HH at discharge.
[2024-12-08] MEDS: BUDESONIDE 0.5 MG/2 ML AMPULE NEB IH (11:22)
[2024-12-08] MEDS: IPRATROPIUM/ALBUTEROL SULFATE 3 ML AMPUL.NEB IH (11:23)
--- NOTE | 2024-12-08 12:27 | SWNOTE1 ---
Pt is discharging today. SW faxed dc med rec, CRF, dc summary, progress notes, and PT/OT notes to [address]
--- NOTE | 2024-12-09 12:46 | CM.DCFOLLOWU ---
12/09-1st attempt. No answer
== END 2024-12-08 16:00 | disposition home health service (06) ==
LOC: ER 19:00 → MS 20:03
PROVIDERS: Physician Assistant; Registered Nurse; Admitting Provider Family Medicine; Emergency Provider Emergency Medicine; PCP Internal Medicine; Visit Provider Family Medicine
DX: N39.0 Urinary tract infection, site not specified (principal); E83.42 Hypomagnesemia; R11.2 Nausea with vomiting, unspecified; R10.9 Unspecified abdominal pain; Z87.891 Personal history of nicotine dependence; R06.03 Acute respiratory distress; I10 Essential (primary) hypertension; E86.0 Dehydration; D50.9 Iron deficiency anemia, unspecified; J45.909 Unspecified asthma, uncomplicated; F32.A Depression, unspecified; E78.00 Pure hypercholesterolemia, unspecified; I25.10 Atherosclerotic heart disease of native coronary artery without angina pectoris; Z86.14 Personal history of Methicillin resistant Staphylococcus aureus infection; R06.02 Shortness of breath; G47.00 Insomnia, unspecified; R53.1 Weakness; Z90.49 Acquired absence of other specified parts of digestive tract
CPT/HCPCS: 36415; 71045; 74176; 80053; 81001; 82800; 83605; 83690; 83735; 83880; 84443; 84484; 85025; 85610; 87086; 93005; 94640; 94761; 96361; 96365; 96366; 96367; 96372; 96375; 97161; 97165; 99285; G0328; G0378; J0696; J0780; J1650; J2405; J3475; J3490

== ENCOUNTER 2024-12-13 15:43 | Observation (INO) | payer MEDICARE, MEDICAID, SELFPAY ==
[2024-12-13] VITALS (18 sets, daily range): BP systolic 132–182; BP diastolic 69–98; PULSE 90–103; TEMP 36.7–37.1; O2SAT 86–97; BMI 38.5; BMI 38.8
--- NOTE | 2024-12-13 15:45 | XR_ITS ---
The [address] [address] Patient Name: GERA PERDUE MRN: [id number] date: 1945 Sex: F Assigned Patient Location: ER Current Patient Location: ER Accession/Order Number: [id number] Exam Date: 12/13/2024 16:30 Report Date: 12/13/2024 17:01 At the request of: DAVID MOTTA Procedure: XR chest 1V EXAM: XR chest 1V HISTORY: SOB COMPARISON: 12/07/2024 and earlier. TECHNIQUE: AP upright chest x-ray. FINDINGS: Under linear density right base consistent with atelectasis, other lung densities felt to be stable scarring. No consolidation, infiltrate or edema seen. Heart size normal for technique unchanged. No increasing pleural effusion, no pneumothorax. XR/XR chest 1V IMPRESSION: Stable chest x-ray without infiltrate or edema. Minor atelectasis right base. Electronically authenticated by: DAMIEN DOBBS Date: 12/13/2024 17:01
--- NOTE | 2024-12-13 15:59 | CT_ITS ---
The [address] [address] Patient Name: GERA PERDUE MRN: [id number] date: 1945 Sex: F Assigned Patient Location: ER Current Patient Location: ER Accession/Order Number: [id number] Exam Date: 12/13/2024 16:30 Report Date: 12/13/2024 17:22 At the request of: DAVID MOTTA Procedure: CT cervical spine wo con EXAM: CT cervical spine wo con HISTORY: Atraumatic pain COMPARISON: CT chest including the lower cervical spine 10/06/2024, 08/29/2023. TECHNIQUE: CT cervical spine noncontrast. Axial scans with reformatted coronal and sagittal images. Individualized radiation dose reduction used for this exam. FINDINGS: Compression deformity C7 loss of height approximately 20% anteriorly unchanged from chest CT 10/06/2024 and 08/29/2023. No new or acute appearing fracture seen involving C1-C6. Normal alignment without subluxation. Mild degenerative changes. Prevertebral soft tissues unremarkable. No cervical mass or adenopathy. Lower neck upper chest unremarkable. Slice brain unremarkable. Mastoid middle ear cavities clear. CT/CT cervical spine wo con IMPRESSION: 1. No new acute appearing fracture. No evidence of subluxation. 2. Compression deformity C7 unchanged from previous. [place] to be chronic stable. Electronically authenticated by: DAMIEN DOBBS Date: 12/13/2024 17:22
--- NOTE | 2024-12-13 16:01 | ED_ITS ---
HPI HPI - General Adult General Chief complaint: Neck Pain/Injury Stated complaint: NECK PAIN Time Seen by Provider: 12/13/24 15:44 Source: patient Mode of arrival: ambulance Limitations: no limitations History of Present Illness HPI narrative: 79-year-old female presents for 2 complaints. Both started within the last 24 hours. She states that last night her right leg became red and swollen. This morning when she woke up she had some pain in the right posterior lateral aspect of her neck. She recalls no trauma and she has no weakness or numbness in her arm. She has a history of COPD and felt somewhat short of breath. She was given an aerosol treatment by the paramedics as well as IV Solu-Medrol and her breathing improved greatly. It is back to her baseline. She does not have chest pain. She is on Coumadin but she does not know why. She does not know if she has ever had a blood clot before. Related Data Home Medications ?Medication ?Instructions ?Recorded ?Confirmed albuterol sulfate 90 mcg/actuation 2 puff inhalation Q4H PRN 08/28/23 12/07/24 aerosol inhaler shortness of breath or wheezing cholecalciferol (vitamin D3) 50 50 mcg PO DAILY 08/28/23 12/07/24 mcg (2,000 unit) tablet pregabalin 75 mg capsule 75 mg PO BID 08/28/23 12/07/24 melatonin 5 mg tablet 5 mg PO QPM 08/14/24 12/07/24 fluticasone fur. 100 mcg-umeclid 1 inh inhalation QAM 09/19/24 12/07/24 62.5 mcg-vilant 25 mcg inhalat.powder (Trelegy Ellipta) alendronate 70 mg tablet 70 mg PO .Weekly 12/07/24 12/07/24 atorvastatin 40 mg tablet 40 mg PO DAILY 12/07/24 12/07/24 bupropion HCl 300 mg 24 hr tablet, 300 mg PO DAILY 12/07/24 12/07/24 extended release cholecalciferol (vitamin D3) 50 2,000 unit PO DAILY 12/07/24 12/07/24 mcg (2,000 unit) capsule clopidogrel 75 mg tablet 75 mg PO DAILY 12/07/24 12/07/24 furosemide 20 mg tablet 20 mg PO DAILY 12/07/24 12/07/24 Previous Rx's ?Medication ?Instructions ?Recorded polyethylene glycol 3350 17 17 g PO DAILY PRN constipation 10/01/24 gram/dose oral powder (Miralax) #510 grams calcitonin (salmon) 200 1 spray intranasal QD #3.7 mL 10/08/24 unit/actuation nasal spray carvedilol 25 mg tablet (Coreg) 25 mg PO BID 30 days #60 tabs 10/15/24 linezolid 600 mg tablet 600 mg PO BID 13 days #26 tabs 10/15/24 cefdinir 300 mg capsule 600 mg (2 x 300 mg) PO DAILY #20 12/08/24 caps Allergies Allergy/AdvReac Type Severity Reaction Status Date / Time aspirin Allergy Severe Hives Verified 12/13/24 15:47 Opioid HPI Opioid Management Most Recent Opioid Data: Last Pain Scale 0 12/08/24 09:49 12/08/24 Last Pain Intensity 2 10/13/24 13:10 10/13/24 Last Pain Assessment 12/08/24 15:20 Last ORT Total Score 3 12/07/24 20:04 12/07/24 Last ORT Risk Category Low Risk 12/07/24 20:04 12/07/24 Review of Systems ROS Narrative A ten point review of systems is negative except as noted above. [facility] Medical History Elevated d-dimer ?R79.89 - Other specified abnormal findings of blood chemistry (ICD-10) Pneumonia ?J18.9 - Pneumonia, unspecified organism (ICD-10) Chronic respiratory failure with hypoxia ?J96.11 - Chronic respiratory failure with hypoxia (ICD-10) Anemia ?D64.9 - Anemia, unspecified (ICD-10) HLD (hyperlipidemia) ?E78.5 - Hyperlipidemia, unspecified (ICD-10) ARMAND (obstructive sleep apnea) ?G47.33 - Obstructive sleep apnea (adult) (pediatric) (ICD-10) COPD (chronic obstructive pulmonary disease) ?J44.9 - Chronic obstructive pulmonary disease, unspecified (ICD-10) HTN (hypertension) ?I10 - Essential (primary) hypertension (ICD-10) Surgical History History of colon surgery ?Z98.890 - Other specified postprocedural states (ICD-10) Family History Grandmother Family history of CHF (congestive heart failure) Family history of cancer Family history of hypertension Family history of myocardial infarction Mother Family history of CHF (congestive heart failure) Family history of cancer Family history of hypertension Family history of myocardial infarction Uncle Family history of COPD (chronic obstructive pulmonary disease) Aunt Family history of cancer Social History Within the past year, how often did you have a drink containing alcohol: never Within the past year, how often did you have six or more drinks on one occasion: never Score interpretation: A score less than 3 is consistent with normal alcohol consumption. 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 Highest level of school completed/degree received: 11th grade Are you now , , , , never or living with a partner: In a typical week, how many times do you talk on the telephone with family, friends, or neighbors: 3 or more times per week How often do you get together with friends or relatives: 3 or more times per week How often do you attend zoroastrian or quaker services: 1-3 times per year Do you belong to any clubs or organizations such as zoroastrian groups unions, fraternal or athletic groups, or school groups: yes Total score: 2 Score interpretation: A score of greater than or equal to 2 indicates the lowest level of social isolation. Little interest or pleasure in doing things: not at all Feeling down, depressed, or hopeless: not at all Feel stressed/tense/nervous/anxious/difficulty sleeping: to some extent Do you think of yourself as: decline to answer Gender Identity: female Exam Narrative Exam Narrative: Nurses note and vital signs reviewed and patient is not hypoxic. General: The patient is receiving an aerosol treatment upon arrival. She is in no acute respiratory distress. Once the aerosol treatment is done she is able to speak in full sentences. She is awake and alert. Skin: Warm, dry, no pallor noted. There is no rash noted. Head: Normocephalic, atraumatic Eye: Normal conjunctiva, no drainage Ears, Nose, Mouth, and Throat: oral mucosa is moist. Nares patent. Cardiovascular: Regular Rate and Rhythm Respiratory: Bilateral rhonchi with good air movement. Back: non-tender GI: Soft and nontender Musculoskeletal: The right lower leg is erythematous and swollen compared to the contralateral which is not erythematous or swollen at all. Neurological: A&O, normal speech Psychiatric: Cooperative Constitutional Vital Signs, click to edit/add: Last Vital Signs Temp 98.7 F 12/13/24 15:48 Pulse 98 H 12/13/24 15:48 Resp 24 H 12/13/24 15:48 BP 176/98 H 12/13/24 15:48 Pulse Ox 97 12/13/24 15:48 O2 Del Method Nasal Cannula 12/13/24 15:48 O2 Flow Rate 3 12/13/24 15:48 Course Vital Signs Vital signs: Vital Signs Temperature 98.7 F 12/13/24 15:48 Pulse Rate 98 H 12/13/24 15:48 Respiratory Rate 24 H 12/13/24 15:48 Blood Pressure 176/98 H 12/13/24 15:48 Pulse Oximetry 97 12/13/24 15:48 Oxygen Delivery Method Nasal Cannula 12/13/24 15:48 Oxygen Delivery Flow Rate 3 12/13/24 15:48 Temperature 98.7 F 12/13/24 15:48 Pulse Rate 98 H 12/13/24 15:48 Respiratory Rate 24 H 12/13/24 15:48 Blood Pressure 176/98 H 12/13/24 15:48 Pulse Oximetry 97 12/13/24 15:48 Oxygen Delivery Method Nasal Cannula 12/13/24 15:48 Oxygen Delivery Flow Rate 3 12/13/24 15:48 Medical Decision Making [facility] Narrative Medical decision making narrative: The patient has swollen erythematous right lower extremity. I am concerned about DVT in this patient with an elevated D-dimer. Ultrasound is not available. She was given a dose of subcu Lovenox but was also covered with IV Ancef in the event that this is cellulitis. She is unable to walk because of t he pain and the swelling and should be admitted for observation. Treatment diagnosis and disposition were discussed with the patient. Differential Diagnosis Differential Diagnosis: DVT, cellulitis Lab Data Lab results reviewed: Yes I reviewed the patient's lab results Labs: Lab Results 12/13/24 12/13/24 Range/Units 15:50 16:03 WBC 13.6 H (4.0-11.0) 10^3/uL RBC 4.27 (4.20-5.40) 10^6/uL Hgb 11.1 L (12.0-16.0) g/dL Hct 37.1 (36.0-48.0) % MCV 86.9 (81.0-99.0) fL MCH 26.0 L (26.7-34.0) pg MCHC 29.9 (29.9-35.2) g/dL RDW 18.1 H (11.0-15.0) % Plt Count 308 (150-450) 10^3/uL MPV 8.3 L (9.5-13.5) fL Seg Neuts % (Manual) 61.0 (43.0-75.0) Lymphocytes % (Manual) 32.0 (20.5-60.0) % Monocytes % (Manual) 6.0 (1.7-12.0) % Eosinophils % (Manual) 0.0 L (0.9-7.0) % Basophils % (Manual) 1.0 (0.2-2.0) % Neutrophils # (Manual) 8.29 H (1.4-6.5) 10^3/uL Lymphocytes # (Manual) 4.35 H (1.20-3.80) 10^3/uL Monocytes # (Manual) 0.81 H (0.30-0.80) 10^3/uL Eosinophils # (Manual) 0.00 (0.00-0.70) 10^3/uL Basophils # (Manual) 0.13 H (0.00-0.10) 10^3/uL Anisocytosis 1+ PT 11.1 (9.0-11.6) sec INR 1.05 D-Dimer 1.63 H* (<=0.59) mg/L FEU Sodium 139 (136-145) mmol/L Potassium 3.2 L (3.5-5.1) mmol/L Chloride 102 (98-107) mmol/L Carbon Dioxide 36.9 H (21.0-32.0) mmol/L Anion Gap 3.3 BUN 4.0 L (7.0-18.0) mg/dL Creatinine 0.89 (0.55-1.02) mg/dL Est GFR ( Amer) >60 (>=60 mL/min/1.73m^2) Est GFR (Non-Af Amer) >60 (>=60 mL/min/1.73m^2) BUN/Creatinine Ratio 4.5 Glucose 90 (74-106) mg/dL Calcium 9.2 (8.5-10.1) mg/dL Influenza Type A Ag Negative Influenza Type B Ag Negative SARS-CoV-2 Ag (CV2AG) Negative (NEGATIVE) Imaging Data Chest x-ray: Radiologist's impression: ITS Impressions Chest X-Ray 12/13/24 15:45 IMPRESSION: Stable chest x-ray without infiltrate or edema. Minor atelectasis right base. Electronically authenticated by: DAMIEN DOBBS Date: 12/13/2024 17:[address] 12/13/24 15:59 IMPRESSION: 1. No new acute appearing fracture. No evidence of subluxation. 2. Compression deformity C7 unchanged from previous. [place] to be chronic stable. Electronically authenticated by: DAMIEN DOBBS Date: 12/13/2024 17:22 ECG Data Attestation: I personally reviewed and interpreted this ECG as follows: (EKG on my interpretation shows normal sinus rhythm with a rate of 97 and no acute change) Discharge Plan Discharge Chief Complaint: Neck Pain/Injury Clinical Impression: Leg pain, right, Inability to walk Patient Disposition: Admitted as Observation Time of Disposition Decision: 17:38 Condition: Fair
--- OUTSIDE RECORDS SUMMARY | 2024-12-13 16:06 | XMS_ITS | CCD ---
Author Organization [facility] Care Team Providers Care Wire Lather Name Role Phone Mely Camarillo Unavailable Unavailable [...] Care Provider DO Richard Pearson Emergency Provider [phone] ETHAN Morrissey Emergency Provider MD Jolanta Mckenzie Admit Provider MD Jolanta Mckenzie Attending Provider MD Jesus Alberto Aquino Attending Provider Dr. Charlie Mondragon II Attending Unavailable LAKSHMIPATHY ., NARENDRANATH Admitting Sahra vailable LAKSHMIPATHY ., NARENDRANATH Attending Sahra vailable DR SVITLANA HAMMOND Primary Care Unavailable DO Gustavo Salas Primary Care Provider Karen FISH PEDDLER- Kadie Beckford Emergency Provider DO Marshall Dominguez Emergency Provider MD Jolanta Mckenzie Admit Provider MD Jolanta Mckenzie Attending Provider [phone] DO Maury Morrissey Emergency Provider [phone] MD Jesus Alberto Aquino Admit Provider [phone] MD Jesus Alberto Aquino Attending Provider Gustavo Salas DO Primary Care Provider [phone] Aubrey METZ, Leah Unavailable [phone] Gustavo Salas DO Primary Care Provider GUSTAVO SALAS Primary Care Physician Unavail able DO Gustavo Salas Primary Care Provider [phone] MD Jenna Engle Attending Provider [facility] Kadie Beckford Emergency Provider MD Lucho Grullon Admit Provider MD Lucho Grullon Attending Provider [phone] JENNA ENGLE Attending Unavailable GUSTAVO SALAS Primary Care Unavailable JENNA ENGLE Attending Unavailable JENNA ENGLE Referring Unavailable GUSTAVO SALAS Primary Care Unavailable MD [place] Mckenzie Attending Provider Renae Ponce Attending Unavailable GUSTAVO SALAS Referring Unavailable Renae Ponce Attending Unavailable Renae [...] MELY A Primary Care Unavailable TITOKIM MARKELL S Referring Unavailable OOSTRA, CECELIA E Attending Unavailable OOSTRA, CECELIA E Referring Unavailable VONTHRON, MELY A Primary Care Unavailable OOSTRA, CECELIA E Attending Unavailable OOSTRA, CECELIA E Referring Unavailable VONTHRON, MELY A Primary Care Unavailable ASHLEY MOONEY K Attending Unavailable ASHLEY MOONEY K Referring Unavailable [...] Unavailable MARITZA, GUSTAVO A Primary Care Unavailable ANGELA BELCHER Attending Unavailable MARITZA, GUSTAVO A Referring Unavailable MARITZA, GUSTAVO A Primary Care Unavailable TODD POSEY JR Referring Unavailable MARITZA, GUSTAVO A Primary Care Unavailable TODD POSEY JR Referring Unavailable GUSTAVO SALAS A Primary Care Unavailable TODD POSEY JR Referring Unavailable MARITZA, GUSTAVO A Primary Care Unavailable TODD POSEY JR Referring Unavailable MARITZA, GUSTAVO A Primary Care Unavailable AMRITZA, GUSTAVO A Referring Unavailable MARITZA, GUSTAVO A [...] Unavailable GUSTAVO SALAS Attending Unavailable GUSTAVO SALAS A Referring Unavailable GUSTAVO SALAS A Referring Unavailable GUSTAVO SALAS A Attending Unavailable MARITZA, GUSTAVO A Referring Unavailable GUSTAVO SALAS A Attending Unavailable MARITZA, GUSTAVO A Referring Unavailable MARITZAGUSTAVO LEMUS A Attending Unavailable MARITZA, GUSTAVO A Referring Unavailable MARITZA, GUSTAVO A Referring Unavailable GUSTAVO SALAS A Attending Unavailable Gustavo Salas DO A Unavailable Jenna Engle Attending Unavailable Gustavo Salas Primary Care Unavailable Jenna Engle Admitting Unavailable Gustavo Salas Primary Care Unavailable [place] Mckenzie Attending Unavailab Lucho Yoder Admitting Unavailable JENNA ENGLE Referring Unavailable GUSTAVO SALAS Primary Care Unavailable Gustavo Salas DO Primary Care Provider Mely Bob Primary Care Provid er Allergies Allergy Classification Reported Allergen(s) Allergy Type Date of Onset Reaction(s) Facility (17 sources) Acetaminophen / oxyCODONE; Translations: [acetaminophen-ox ycodone] Drug Allergy 3 vomiting [facility] (20 sources) Aspirin; Translations: [aspirin] Drug Allergy 9 Other, Nausea/vomiting , Nausea And Vomiting, Other (See Comments) [facility] (19 sources) Acetaminophen / oxyCODONE; Translations: [OXYCODONE-ACETAM INOPHEN] Drug Allergy 3 GI intolerance [facility] (4 sources) Ibuprofen; Translations: [IBUPROFEN] Drug Allergy 4 Nausea/vomiting [facility] (18 sources) Acetaminophen; Translations: [acetaminophen] Drug Allergy 4 GI intolerance [facility] (20 sources) oxyCODONE; Translations: [OXYCODONE] Drug Allergy 1 GI intolerance, Vomiting [facility] (1 source) Acetaminophen / oxyCODONE; Translations: [acetaminophen-ox ycodone] Drug Allergy [facility] Medications Current Medications Medication Drug [...] (eight) hours if needed. Active take 2 tablets by mo uth every four hours as needed for pain acetaminophen (TYLENOL) 325 mg tablet Take 2 tablets (650 mg total) by mouth every 4 (four) hours as needed for pain. Active take 2 capsules by m outh every eight hours Acetaminophen 500 MG 2 capsules as needed Orally every 8 hrs PRN Active [id number] 200 actuat albuterol 0.09 mg/actuat metered dose [...] for the next 30 min. 4 tablet 11 12/30/2023 12/29/2024 Active Start: 09-21-2020 End: 12-09-2023 [...] 3 12/30/2023 Active Start: 04-28-2020 End: 09-21-2020 take 40 mg by mouth once daily in the evening Atorvastatin Active 40 MG PO Every evening September 21, 2020 1:00am Start: 01-12-2019 End: 04-28-2020 take 1 tablet [...] 4 days benzonatate 100 mg oral capsule (5 sources) Non-narcotic Antitussive Start: 09-23-2024 take 1 [...] (LIST CLEANUP) cefdinir 300 mg oral capsule (8 sources) Cephalosporin Antibacterial Start: 09-23-2024 take 1 [...] day(s), # 14 cap(s), Refills(s) 0, Pharmacy: [id number], 170, cm, 01/30/24 13:39:00 [...] once daily cholecalciferol (Vitamin D-3) 50 MCG (1999 UT) capsule Indications: Vitamin D deficiency Take 1 capsule (50 mcg) by mouth Daily 90 capsule 3 09/03/2024 Active Start: 12-17-2023 take 1 capsule by [facility] once in the morning cholecalciferol (Vitamin D-3) 50 MCG (1999 UT) capsule Indications: Vitamin D deficiency Take 1 capsule (50 mcg) by mouth in the morning. 90 capsule 3 12/17/2023 Active Start: 09-21-2020 take 2000 [IU] by [facility] once daily Cholecalciferol (Vitamin D3) Active 2000 UNIT PO Daily September 21, 2020 1:00am Start: 08-31-2020 End: 09-21-2020 take 50 ug by mouth once daily Cholecalciferol (Vitami n D3) Discontinued 50 MCG PO Daily August 31, 2020 1:00am September 21, 2020 1:41pm take 1 capsule by [facility] in the morning cholecalciferol, vitamin D3, 2,000 units capsule Take 1 capsule (2,000 Units total) by mouth in the morning. Active take 1 tablet by [facility] twice daily cholecalciferol, vitamin D3, 75 mcg (3,000 unit) tablet Take by mouth. 1 TAB BID Active clopidogrel 75 mg oral tablet (20 sources) P2Y12 Platelet Inhibitor Start: 12-31-2022 take 1 tablet by mouth in the morning clopidogreL (PLAVIX) 75 mg tablet Take 1 tablet (75 mg total) by mouth in the morning. 09/01/2023 Active cyclobenzaprine hydrochloride 5 mg oral tablet (6 sources) Muscle Relaxant Start: 10-01-2024 take 1 [...] take 1 puff(s) by inhalation once daily zltlkgniwvy-qyisuvjpo-uzfoqsvw (TRELEGY ELLIPTA) 100-62.5-25 mcg blister with device Inhale 1 puff once daily. 0 04/01/2023 Active Start: 04-01-2023 End: 12-09-2023 take 1 puff(s) by inhalation in the morning Symyxktuoxs-Aiiyfctqw-Rlaktt (Trelegy Ellipta) 100-62.5-25 MCG/ACT aerosol powder Indications: Panlobular emphysema (CMS/HCC) Inhale 1 puff in the morning. 1 each 04/01/2023 12/09/2023 Discontinued (Other) Start: 02-23-2020 End: 04-25-2020 Pqoilwfgbtw-Fiqdoixhh-Frtrqf er (Trelegy Ellipta) 100-62.5-25 mcg blister with device Discontinued 1 PUFF INHALATION As Directed February 22, 2020 11:00pm April 25, 2020 5:58pm Start: 02-23-2020 End: 04-25-2020 Mxffskngplq-Ceztjvfln-Wndjky er (Trelegy Ellipta) 100-62.5-25 mcg blister with device Discontinued 1 PUFF INHALATION As Directed February 23, 2020 12:00am April 25, 2020 6:58pm take 1 puff(s) by inhalation once daily Trelegy Ellipta 100-62.5-25 MCG/INH 1 pu ff Inhalation Once a day for 30 days Active Kuvzzusyeix-Lshbhtupe-Ggpbdl (Trelegy Ellipta) 200-62.5-25 MCG/ACT aerosol powder (13 sources) take 1 puff(s) by inhalation once daily Gwtzgfxnzws-Gobivyqyi-Ryhuox (Trelegy Ellipta) 200-62.5-25 MCG/ACT aerosol powder Inhale [...] other day levoFLOXacin 500 mg oral tablet (19 sources) Quinolone Antimicrobial Start: 11-28-2023 take 1 [...] 6:35pm loperamide hydrochloride 2 mg oral capsule (20 sources) Opioid Agonist Start: 02-25-2024 take 1 capsule by mouth four times daily as needed loperamide (Imodium) 2 MG capsule Take 2 mg by mouth 4 (four) times a day as needed 02/25/2024 Active magnesium oxide 400 mg oral tablet (15 sources) Start: 10-23-2023 magnesium oxid e (Mag-Ox) [...] 11, 2023 12:00am Metoprolol (20 sources) beta-Adrenergic Juan Diego Start: 01-30-2024 Metopr olol Succinate Er 24hr 50 Mg Tab Metoprolol Succinate Er 24hr 50 Mg Tab Start Date: 01/30/24 Status: Ordered Start: 08-03-2019 End: 01-06-2024 take 1 tablet by mouth once daily metoprolol succinate XL (Toprol-XL) 50 MG 24 hr tablet Indications: Atherosclerosis of [place] coronary artery without angina pectoris, unspecified whether [place] or transplanted heart (CMS/HCC) TAKE 1 TABLET [...] sources) Polyene Antifungal Start: 05-06-2024 nystatin (Mycostatin) 981104 UNIT/GM powder Indications: Rash Apply topically 2 (two) times a day 60 g 1 05/06/2024 Active Start: 01-30-2024 nystatin Top 1 00,000 units/g Pwdr Refill(s) 0 Start Date: 01/30/24 Status: Ordered Start: 06-17-2023 nystatin (MYCO STATIN) powder Apply 1 Application topically in the morning and 1 Application before bedtime. Apply to abdominal folds and breast. . 06/17/2023 Active Start: 06-17-2023 nystatin (Myco statin) [id number] UNIT/GM powder Indications: Rash APPLY TOPICALLY TO [...] 5:24pm ondansetron 4 mg disintegrating oral tablet (10 sources) Serotonin-3 Receptor Antagonist Start: 08-14-2024 ondansetron [...] Start: 09-02-2023 take 1 tablet by mouth before mealtime [...] 04-03-2023 take 1 tablet by nika th in the morning PARoxetine (Paxil) 40 MG tablet Indications: Major depressive disorder in partial remission, unspecified whether recurrent (HCC) (CMS/HCC) Take 1 tablet (40 mg) by mouth in the morning. 90 tablet 3 09/03/2024 Active Start: 11-15-2017 End: 09-21-2020 take 1 tablet by mouth once daily in the morning Paroxetine Hcl (Paxil) 40 mg tablet Active 40 MG PO Every morning September 21, 2020 1:38pm polyethylene glycol 3350 59866 mg powder for oral solution (5 sources) Osmotic Laxative Start: 10-02-2024 polyethylene glycol, [...] End: 06-22-2024 take 1 capsule by mouth once daily at bedtime pregabalin (Lyrica) 75 MG capsule Indications: Failed back surgical syndrome TAKE 1 CAPSULE BY MOUTH EVERY MORNING AND AT BEDTIME 60 capsule 1 06/22/2024 Active Start: 02-23-2020 End: 09-21-2020 take 75 [...] by mouth nightly. 0 10/23/2023 Active sennosides, correction 8.6 mg oral tablet (2 sources) Start: 09-21-2020 take 1 tablet by mouth once daily at bedtime Sennosides (Senna Lax) 8.6 mg Tablet Active 1 TAB PO Daily at bedtime September 21, 2020 12:00am 1000 ml sodium chloride 9 mg/ml injection (16 sources) Start: 10-04-2023 sodium chlorid e 0.9 % solution 10/04/2023 Active Start: 08-02-2019 Intravenous, a t 100 mL/hr, CONTINUOUS, Starting 08/02/19 at 0030 solifenacin succinate 10 mg oral tablet (15 sources) Cholinergic Muscarinic Antagonist Start: 01-10-2024 take [...] hours as needed for pain HYDROcodone-acetami nophen ([place]) 5-325 MG tablet TAKE 1 TABLET BY MOUTH EVERY 6 HOURS NEEDED FOR PAIN FOR 3 DAYS 10/02/2024 10/06/2024 Discontinued (Ineffective) Start: 01-15-2020 End: 02-23-2020 take 1 tablet by mouth every four to six hours Hydrocodone-Acetaminophen ([place]) 5-325 mg tablet Discontinued 1 TAB PO EVERY 4-6 HOURS 10 January 15, 2020 February 23, 2020 2:44pm Start: 08-02-2019 HYDROcodone-ac etaminophen ([place]) 5-325 MG per tablet 1 tablet Start: 01-02-2019 End: 01-12-2019 take 1 tablet by mouth every six hours Hydrocodone-Acetaminophen ([place]) 5-325 mg tablet Discontinued 1 TAB PO Q6H 20 January 02, 2019 January 12, 2019 6:44am Start: 06-22-2018 End: 08-01-2019 take 1 tablet by mouth every four to six hours Hydrocodone-Acetaminophen ([place]) 5-325 mg tablet Discontinued 1 TAB PO [...] D2 Compound Start: 04-28-2020 End: 12-26-2022 take 03268 [IU] by mouth every month Ergocalciferol (Vitamin D2) Discontinued 43544 UNIT PO every month April 28, 2020 [...] application Externally Twice a day prn Active Csooumdwijfr-Ibehuqjn-Cvquyy (Multivitamin 50 Plus) Tablet (10 sources) Start: 02-23-2020 End: 04-25-2020 Ubuleejeswnb-Gughxscn-Ijxeut (Multivitamin 50 Plus) Tablet Discontinued 1 TAB PO Daily February 22, 2020 11:00pm April 25, 2020 5:58pm Start: 02-23-2020 End: 04-25-2020 Stlajrfhjqbl-Zrewbsrv-Xrcozw (Multivitamin 50 Plus) Tablet Discontinued 1 TAB [...] DOSES CALL 911 Sublingual as needed Active [place]-3 Fatty Acids-Fish Oil (Fish Oil) 300-1,000 mg capsule (10 sources) Start: 08-01-2019 End: 02-23-2020 take 1 capsule by mouth once daily [place]-3 Fatty Acids-Fish Oil (Fish Oil) 300-1,000 mg capsule Discontinued 1000 MG PO Daily July 31, 2019 11:00pm February 23, 2020 3:42pm Start: 08-01-2019 End: 02-23-2020 take 1 capsule by mouth once daily [place]-3 Fatty Acids-Fish Oil (Fish Oil) 300-1,000 mg [...] mouth Daily 180 capsule 3 12/30/2023 Active take 1 tablet by nika [...] Anxiety; Translations: [Anxiety disorder, unspecified] Onset: 3 06-14-2023 Chronic Bacterial infection; unspecified site (2 sources) Streptococcal infection, unspecified site; Translations: [Resistance to vancomycin] Onset: 4 Episodic Calculus of urinary tract (5 sources) Kidney stone; Translations: [Calculus of kidney] Episodic Chronic kidney disease (20 sources) Chronic kidney [...] part of foot] Onset: 3 Resolved: 4 06-14-2023 Chronic Congestive heart failure; nonhypertensive (20 sources) [...] to stage 3a chronic kidney disease (HCC) (CMS/HCC)] 06-22-2024 Chronic Deficiency and other anemia (10 [...] 3 Episodic Genitourinary symptoms and ill-defined conditions (20 sources) Incontinence; Translations: [Unspecified urinary incontinence] Onset: [...] current pathological fracture] Onset: 3 Resolved: 4 03-28-2023 Chronic Other circulatory disease (10 sources) Low blood pressure; Translations: [Hypotension, unspecified] 08-31-2020 Episodic Other connective tissue disease (19 sources) History of total hip arthroplasty; Translations: [...] nutritional; endocrine; and metabolic disorders (17 sources) Obesity caused by energy imbalance; Translations: [Morbid (severe) obesity due to excess calories] Onset: 4 12-29-2023 Chronic Other screening for suspected conditions (not mental disorders or infectious disease) (2 sources) Abnormal findings on diagnostic imaging of other specified body structures; Translations: [CT of chest abnormal] Onset: 4 03-17-2024 Chronic Other upper respiratory disease (5 sources) Seasonal allergic rhinitis; Translations: [Other seasonal allergic rhinitis] Chronic Other upper respiratory disease (5 sources) Allergic rhinitis; Translations: [Allergic rhinitis, unspecified] Chronic Peripheral and visceral atherosclerosis (17 sources) Atherosclerosis of aorta; Translations: [Atherosclerosis of aorta] Onset: 4 01-23-2024 Chronic Prolapse of female genital organs (2 sources) Cystocele; Translations: [Cystocele, unspecified] 12-09-2023 Chronic Residual codes; unclassified (20 sources) Sleep apnea; Translations: [Sleep apnea, unspecified] Onset: 3 06-14-2023 Chronic Residual codes; unclassified (6 sources) Obstructive [...] of mental health and substance abuse codes (2 sources) Personal history of nicotine dependence; Translations: [Ex-cigarette smoker] Onset: 4 03-17-2024 Episodic Spondylosis; intervertebral disc disorders; other back [...] 3 Resolved: 4 04-28-2020 Episodic Allergic reactions (15 sources) Atopic dermatitis; Translations: [Intrinsic (allergic) eczema] Onset: 3 Resolved: 4 03-25-2024 Chronic Allergic reactions (19 sources) Inflammatory dermatosis; Translations: [Dermatitis, unspecified] Onset: 3 06-14-2023 Episodic Cardiac dysrhythmias (20 sources) Longstanding persistent atrial fibrillation; Translations: [Longstanding persistent atrial fibrillation] Onset: 9 Resolved: 4 08-02-2019 Chronic Coronary atherosclerosis and other heart disease (17 sources) Coronary angioplasty status; Translations: [Stented coronary artery] Onset: 4 Resolved: Episodic Deficiency and other anemia (20 sources) Microcytic anemia; Translations: [Iron deficiency anemia, unspecified] Onset: 4 Resolved: 4 01-06-2024 Episodic Diabetes mellitus with complications (15 sources) Neuropathy due to diabetes mellitus; Translations: [Type 2 diabetes mellitus with diabetic neuropathy, unspecified] Onset: 4 Resolved: 4 03-25-2024 Chronic Diabetes mellitus without complication (17 sources) Impaired fasting glycemia; Translations: [Impaired fasting glucose] Onset: 4 01-23-2024 Episodic Diseases of white blood cells (20 sources) Leukocytosis; Translations: [Elevated white blood cell count, unspecified] Onset: 4 Resolved: 4 09-06-2020 Chronic E Codes: Fall (20 sources) Fall; Translations: [Unspecified fall, initial encounter] Onset: 3 Resolved: 4 08-31-2020 Episodic Fracture of lower limb (15 sources) Fracture of femur; Translations: [Unspecified fracture of left femur, sequela] Onset: 3 Resolved: 4 03-25-2024 Episodic Fracture of neck of femur (hip) (20 sources) Intertrochanteric fracture; Translations: [Displaced intertrochanteric fracture of unspecified femur, initial encounter for closed fracture] Onset: 4 Resolved: 4 08-31-2020 Episodic Intestinal obstruction without hernia (17 sources) Small bowel obstruction; Translations: [Unspecified intestinal obstruction, unspecified as to partial versus complete obstruction] Onset: 9 Resolved: 4 08-01-2019 Episodic Malaise and fatigue (20 sources) Physical deconditioning; Translations: [Other malaise] Onset: 4 Resolved: 4 12-27-2022 Episodic Mood disorders (20 sources) Mood disorders Onset: 3 Resolved: 4 04-01-2023 Mycoses (20 sources) Onychomycosis; Translations: [Tinea unguium] Onset: 3 06-14-2023 Episodic Nausea and vomiting (19 sources) Nausea and vomiting; Translations: [Nausea with vomiting, unspecified] Onset: 4 Resolved: 4 02-14-2024 Episodic Nutritional deficiencies (20 sources) Vitamin D deficiency; Translations: [Vitamin D deficiency, unspecified] Onset: 3 Resolved: 4 04-28-2020 Chronic Nutritional deficiencies (15 sources) Nutritional deficiency state; Translations: [Nutritional deficiency, unspecified] Onset: 3 Resolved: 4 03-25-2024 Episodic Other aftercare (20 sources) Post-discharge follow-up; Translations: [Encounter for follow-up examination after completed treatment for conditions other than malignant neoplasm] Onset: 3 Resolved: 4 12-09-2023 Episodic Other aftercare (15 sources) 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; 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] Onset: 9 Resolved: 4 03-25-2024 Episodic Other and ill-defined heart disease (17 sources) Heart disease; Translations: [Heart disease, unspecified] Onset: 3 Resolved: 4 06-14-2023 Chronic Other and unspecified benign neoplasm (19 sources) Polyp of colon; Translations: [Polyp of colon] Onset: 3 06-14-2023 Episodic Other bone disease and musculoskeletal deformities (15 sources) Osteopenia; Translations: [Other specified disorders of bone density and structure, right thigh] Onset: 4 Resolved: 4 05-06-2024 Episodic Other circulatory disease (15 sources) History of cerebrovascular disease; Translations: [Personal history of transient ischemic attack (TIA), and cerebral infarction without residual deficits] Onset: 3 Resolved: 4 03-25-2024 Episodic Other connective tissue disease (15 sources) Recurrent falls ; Translations: [Repeated falls] Onset: 3 Resolved: 4 03-25-2024 Episodic Other connective tissue disease (15 sources) Muscle weakness; Translations: [Muscle weakness (generalized)] [...] Episodic Other ear and sense organ disorders (15 sources) Hearing loss of right ear; Translations: [Impacted cerumen, right ear] Onset: 4 12-30-2023 Episodic Other gastrointestinal disorders (15 sources) Colostomy present; Translations: [Encounter for attention to colostomy] Onset: 4 Resolved: 4 03-25-2024 Chronic Other gastrointestinal disorders (17 sources) Constipation; Translations: [Constipation, unspecified] Onset: 3 Resolved: 4 06-14-2023 Episodic Other gastrointestinal disorders (15 sources) History of diverticulitis; Translations: [Personal history of other diseases of the digestive system] Onset: 5 Resolved: 4 03-25-2024 Episodic Other hereditary and degenerative nervous system conditions (15 sources) Essential tremor; Translations: [Essential tremor] Onset: 4 Resolved: 4 03-25-2024 Chronic Other inflammatory condition of skin (20 sources) Intertrigo; Translations: [Erythema intertrigo] Onset: 3 Resolved: 4 04-28-2020 Episodic Other injuries and conditions due to external causes (20 sources) Closed injury of head; Translations: [Unspecified injury of head, initial encounter] Onset: 4 Resolved: 4 07-10-2023 Episodic Other injuries and conditions due to external causes (17 sources) At risk for falls ; Translations: [History of falling] Onset: 3 06-14-2023 Episodic Other lower respiratory disease (20 sources) Dyspnea; Translations: [Shortness of breath] Onset: 3 Resolved: 4 12-09-2023 Episodic Other lower respiratory disease (20 sources) Productive cough ; Translations: [Cough with expectoration] Onset: 4 Resolved: 4 01-06-2024 Episodic Other lower respiratory disease (17 sources) Hypoxia; Translations: [Hypoxemia] Onset: 4 01-23-2024 Episodic Other lower respiratory disease (6 sources) Shortness of breath; Translations: [Shortness of breath] Onset: 4 Episodic Other lower respiratory disease (2 sources) Shortness of breath; Translations: [Shortness of breath] Onset: 4 Episodic Other lower respiratory disease (1 source) Acute respiratory distress; Translations: [Acute respiratory distress] Onset: 3 Episodic Other nervous system disorders (20 sources) Disorder of brain; Translations: [Encephalopathy, unspecified] Onset: 3 Resolved: 4 06-14-2023 Chronic Other nervous system disorders (15 sources) Cognitive deficit in communication skills; Translations: [Cognitive communication deficit] Onset: 3 Resolved: 4 03-25-2024 Chronic Other nervous system disorders (15 sources) Difficulty walking; Translations: [Difficulty in walking, not elsewhere classified] Onset: 3 Resolved: 4 03-25-2024 Chronic Other nervous system disorders (15 sources) Polyneuropathy; Translations: [Polyneuropathy, unspecified] Onset: 3 Resolved: 4 03-25-2024 Chronic Other nervous system disorders (20 sources) Disturbance in speech; Translations: [Unspecified speech disturbances] Onset: 4 Resolved: 4 04-26-2020 Episodic Other nervous system disorders (15 sources) Tremor; Translations: [Tremor, unspecified] Onset: 3 Resolved: 4 03-25-2024 Episodic Other nervous system disorders (15 sources) Incoordination; Translations: [Unspecified lack of coordination] Onset: 3 Resolved: 4 03-25-2024 Episodic Other non-traumatic joint disorders (20 sources) Hip pain; Translations: [Pain in unspecified hip] Onset: 4 Resolved: 4 05-31-2022 Episodic Other non-traumatic joint disorders (15 sources) Sinus tarsi syndrome of left ankle; [...] Resolved: 4 02-14-2024 Episodic Pulmonary heart disease (20 sources) Pulmonary hypertension; Translations: [Pulmonary hypertension, unspecified] Onset: 3 Resolved: 4 03-25-2024 Chronic Residual codes; unclassified (20 sources) Activity of daily living (ADL) alteration; Translations: [Other specified health status] Onset: 4 Resolved: 4 12-26-2022 Episodic Residual codes; unclassified (18 sources) Insomnia; Translations: [Insomnia, unspecified] Onset: 3 06-14-2023 Episodic Residual codes; unclassified (17 sources) Edema of lower extremity; Translations: [Localized edema] Onset: 3 06-14-2023 Episodic Residual codes; unclassified (17 sources) Tobacco user; Translations: [Tobacco use] Onset: 3 Resolved: 4 06-14-2023 Episodic Residual codes; unclassified (17 sources) Localized edema; Translations: [Localized edema] Onset: 3 Resolved: 4 06-19-2023 Episodic Septicemia (except in labor) (13 sources) Acute kidney injury due to sepsis; Translations: [Sepsis, unspecified organism] Onset: 3 Resolved: 4 12-09-2023 Episodic Substance-related disorders (20 sources) Smoker; Translations: [Nicotine dependence, unspecified, uncomplicated] Onset: 3 Resolved: 4 06-19-2023 Chronic Superficial injury; contusion (20 sources) Contusion of hip; Translations: [Contusion of unspecified hip, initial encounter] Onset: 4 Resolved: 4 07-10-2023 Episodic Unclassified (16 sources) Onset: 4 Resolved: 4 02-10-2024 Unclassified (1 source) Other specified cough; Translations: [Other specified cough] Onset: 4 Urinary tract infections (20 sources) Urinary tract infectious disease; Translations: [Urinary tract infection, site not specified] Onset: 4 Resolved: 4 04-28-2020 Episodic Viral infection (19 sources) Verruca plantaris; Translations: [Plantar wart] Onset: 3 06-14-2023 Episodic Results Test Name Value Interpretation Reference Range Facility URINE CULTURE, ROUTINEon Bacteria identified Cx Nom (U) Urine Culture, Routine [facility] Bacteria identified Cx Nom (U) Greater than 2 organisms recovered, none predominant. Please submit [facility] Bacteria identified Cx Nom (U) another sample if clinically indicated. [facility] Bacteria identified Cx Nom (U) Greater than 100,000 colony forming units per mL [facility] Bacteria identified Cx Nom (U) Performed at: [facility] Bacteria identified Cx Nom (U) [address] [place], [place] [id number] [facility] Bacteria identified Cx Nom (U) Gem Setter: Jamil Giraldo PhD, Phone: [phone] [facility] URINE CULTURE, ROUTINEon Bacteria identified Cx Nom (U) Urine Culture, Routine [facility] Bacteria identified Cx Nom (U) Mixed urogenital kimberly [facility] Bacteria identified Cx Nom (U) 10,000-25,000 colony forming units per mL [facility] Bacteria identified Cx Nom (U) Performed at: [facility] Bacteria identified Cx Nom (U) [address] [place], [place] [id number] [facility] Bacteria identified Cx Nom (U) Gem Setter: Jamil Giraldo PhD, Phone: [phone] [facility] XR CHEST 2 VIEWSon 4 [...] detection for pulmonary nodules was performed utilizing [employer] software. FINDINGS: No pleural or pericardial effusion. [...] Blake MD on 05/01/2024 9:[address] [facility] BLOOD UREA NITROGENon 2023 Urea nitrogen [Mass/Vol] 20 mg/dL Normal 5-[address] [facility] Comment on above: Performed By: #### C SOWMYA, BMP #### [facility] ([id number]) [address] [place] [address] 50536 CBC AND AUTO DIFFon 04-13-20 24 ABSOLUTE BASOPHIL 0.0 X10E9/L Normal 0.0-0.2 [facility] Comment on above: Performed By: #### C SOWMYA, BMP #### [facility] ([id number]) [address] [place] [address] 50260 ABSOLUTE NEUTROPHIL 7.1 X10E9/L High 1.5-6.6 [facility] Comment on above: Performed By: #### C BCA, BMP #### [facility] ([id number]) [address] [place] [address] 79250 Basophils/100 WBC (Bld) 0.4 % Normal [facility] Comment on above: Performed By: #### C BCA, BMP #### [facility] ([id number]) [address] [place] [address] 19616 Eosinophils (Bld) [#/Vol] 0.3 10*3/uL Normal 0.0-0.[address] [facility] Comment on above: Performed By: #### C SOWMYA, BMP #### [facility] ([id number]) [address] [place] [address] 40242 Eosinophils/100 WBC (Bld) 2.8 % Normal [facility] Comment on above: Performed By: #### C SOWMYA, BMP #### [facility] ([id number]) [address] [place] [address] 72989 Erythrocyte distribution width (RBC) [Ratio] 19.0 % High 11.5-15.[address] [facility] Comment on above: Performed By: #### C SOWMYA, BMP #### [facility] ([id number]) [address] [place] [address] 02967 Hematocrit (Bld) [Volume fraction] 27.8 % Low 35-[address] [facility] Comment on above: Performed By: #### C SOWMYA, BMP #### [facility] ([id number]) [address] [place] [address] 52809 Hemoglobin (Bld) [Mass/Vol] 9.0 g/dL Low 11.7-15.[address] [facility] Comment on above: Performed By: #### C SOWMYA, BMP #### [facility] ([id number]) [address] [place] [address] 82985 Lymphocytes (Bld) [#/Vol] 3.2 10*3/uL Normal 1.0-3.[address] [facility] Comment on above: Performed By: #### C SOWMYA, BMP #### [facility] ([id number]) [address] [place] [address] 31246 Lymphocytes/100 WBC (Bld) 27.2 % Normal [facility] Comment on above: Performed By: #### C SOWMYA, BMP #### [facility] ([id number]) [address] [place] [address] 25804 MCH (RBC) [Entitic mass] 24.5 pg Low 27-[address] [facility] Comment on above: Performed By: #### C SOWMYA, BMP #### [facility] ([id number]) [address] [place] [address] 43248 MCHC (RBC) [Mass/Vol] 32.3 g/dL Normal 32-36 [facility] Comment on above: Performed By: #### C SOWMYA, BMP #### [facility] ([id number]) [address] [place] [address] 78825 MCV (RBC) [Entitic vol] 76 fL Low 80-[address] [facility] Comment on above: Performed By: #### C SOWMYA, BMP #### [facility] ([id number]) [address] [place] [address] 71932 Monocytes (Bld) [#/Vol] 1.0 10*3/uL High 0-0.[address] [facility] Comment on above: Performed By: #### C SOWMYA, BMP #### [facility] ([id number]) [address] [place] [address] 84319 Monocytes/100 WBC (Bld) 8.4 % Normal [facility] Comment on above: Performed By: #### C SOWMYA, BMP #### [facility] ([id number]) [address] [place] [address] 32588 Neutrophils/100 WBC (Bld) 61.2 % Normal [facility] Comment on above: Performed By: #### C SOWMYA, BMP #### [facility] ([id number]) [address] [place] [address] [place] [address] Platelet mean volume (Bld) [Entitic vol] 6.8 fL Low 7-[address] [facility] Comment on above: Performed By: #### C SOWMYA, BMP #### [facility] ([id number]) [address] [place] [address] 36047 Platelets (Bld) [#/Vol] 353 10*3/uL Normal 150-[address] [facility] Comment on above: Performed By: #### C SOWMYA, BMP #### [facility] ([id number]) [address] [place] [address] 80624 RBC COUNT 3.67 X10E12/L Low 3.80-5.[address] [facility] Comment on above: Performed By: #### C SOWMYA, BMP #### [facility] ([id number]) [address] [place] [address] 25972 WBC (Bld) [#/Vol] 11.7 10*3/uL High 4.0-11.0 [facility] Comment on above: Performed By: #### C SOWMYA, BMP #### [facility] ([id number]) [address] [place] [address] 24606 CREATININEon 04-13-2024 Creatinine [Mass/Vol] 1.16 mg/dL High 0.40-1.00 [facility] Comment on above: Result Comment: METH OD TRACEABLE TO IDMS STANDARD Performed By: #### C SOWMYA, BMP #### [facility] ([id number]) [address] [place] [address] 71419 GFR/1.73 sq M.predicted among non-blacks MDRD (S/P/Bld) [Vol rate/Area] 48 mL/min/{1.73_m2} Low >[address] [facility] Comment on above: Result Comment: Reported eGFR is based on the CKD-EPI 2020 equation that does not use a race coefficient. Performed By: #### C SOWMYA, BMP #### [facility] ([id number]) [address] [place] [address] 09722 ELECTROLYTESon 04-13-2024 Anion gap [Moles/Vol] 4 mmol/L Low 5-15 [facility] Comment on above: Performed By: #### C BCA, BMP #### [facility] ([id number]) [address] [place] [address] 39029 Chloride [Moles/Vol] 106 mmol/L Normal 98-109 [facility] Comment on above: Performed By: #### C BCA, BMP #### [facility] ([id number]) [address] [place] [address] 72555 CO2 [Moles/Vol] 25 mmol/L Normal 22-[address] [facility] Comment on above: Performed By: #### C BCA, BMP #### [facility] ([id number]) [address] [place] [address] 63323 Potassium [Moles/Vol] 4.0 mmol/L Normal 3.5-5.0 [facility] Comment on above: Performed By: #### C BCA, BMP #### [facility] ([id number]) [address] [place] [address] 81474 Sodium [Moles/Vol] 135 mmol/L Normal 134-146 [facility] Comment on above: Performed By: #### C BCA, BMP #### [facility] ([id number]) [address] [place] [address] 64641 BLOOD UREA NITROGENon 2023 Urea nitrogen [Mass/Vol] 19 mg/dL Normal 5-[address] [facility] Comment on above: Performed By: #### C BCA, BMP #### [facility] ([id number]) [address] [place] [address] 80295 CBC AND AUTO DIFFon 04-08-20 24 ABSOLUTE BASOPHIL 0.1 X10E9/L Normal 0.0-0.2 [facility] Comment on above: Performed By: #### C BCA, BMP #### [facility] ([id number]) [address] [place] [address] 82112 ABSOLUTE NEUTROPHIL 4.2 X10E9/L Normal 1.5-6.6 [facility] Comment on above: Performed By: #### C SOWMYA, BMP #### [facility] ([id number]) [address] [place] [address] 29978 Basophils/100 WBC (Bld) 1.1 % Normal [facility] Comment on above: Performed By: #### C SOWMYA, BMP #### [facility] ([id number]) [address] [place] [address] 54305 Eosinophils (Bld) [#/Vol] 0.4 10*3/uL Normal 0.0-0.[address] [facility] Comment on above: Performed By: #### C SOWMYA, BMP #### [facility] ([id number]) [address] [place] [address] 74047 Eosinophils/100 WBC (Bld) 4.0 % Normal [facility] Comment on above: Performed By: #### C SOWMYA, BMP #### [facility] ([id number]) [address] [place] [address] 95805 Erythrocyte distribution width (RBC) [Ratio] 18.5 % High 11.5-15.[address] [facility] Comment on above: Performed By: #### C SOWMYA, BMP #### [facility] ([id number]) [address] [place] [address] 50809 Hematocrit (Bld) [Volume fraction] 28.4 % Low 35-[address] [facility] Comment on above: Performed By: #### C SOWMYA, BMP #### [facility] ([id number]) [address] [place] [address] 63416 Hemoglobin (Bld) [Mass/Vol] 9.4 g/dL Low 11.7-15.[address] [facility] Comment on above: Performed By: #### C SOWMYA, BMP #### [facility] ([id number]) [address] [place] [address] 83483 Lymphocytes (Bld) [#/Vol] 3.3 10*3/uL Normal 1.0-3.[address] [facility] Comment on above: Performed By: #### C SOWMYA, BMP #### [facility] ([id number]) [address] [place] [address] 19211 Lymphocytes/100 WBC (Bld) 37.1 % Normal [facility] Comment on above: Performed By: #### C SOWMYA, BMP #### [facility] ([id number]) [address] [place] [address] 03384 MCH (RBC) [Entitic mass] 24.9 pg Low 27-[address] [facility] Comment on above: Performed By: #### C SOWMYA, BMP #### [facility] ([id number]) [address] [place] [address] 35493 MCHC (RBC) [Mass/Vol] 33.0 g/dL Normal 32-36 [facility] Comment on above: Performed By: #### C SOWMYA, BMP #### [facility] ([id number]) [address] [place] [address] 29535 MCV (RBC) [Entitic vol] 76 fL Low 80-[address] [facility] Comment on above: Performed By: #### C SOWMYA, BMP #### [facility] ([id number]) [address] [place] [address] 08826 Monocytes (Bld) [#/Vol] 1.0 10*3/uL High 0-0.[address] [facility] Comment on above: Performed By: #### C SOWMYA, BMP #### [facility] ([id number]) [address] [place] [address] 45678 Monocytes/100 WBC (Bld) 10.9 % Normal [facility] Comment on above: Performed By: #### C SOWMYA, BMP #### [facility] ([id number]) [address] [place] [address] 46860 Neutrophils/100 WBC (Bld) 46.9 % Normal [facility] Comment on above: Performed By: #### C SOWMYA, BMP #### [facility] ([id number]) [address] [place] [address] 18805 Platelet mean volume (Bld) [Entitic vol] 6.7 fL Low 7-[address] [facility] Comment on above: Performed By: #### C SOWMYA, BMP #### [facility] ([id number]) [address] [place] [address] 81872 Platelets (Bld) [#/Vol] 367 10*3/uL Normal 150-[address] [facility] Comment on above: Performed By: #### C SOWMYA, BMP #### [facility] ([id number]) [address] [place] [address] 66127 RBC COUNT 3.76 X10E12/L Low 3.80-5.[address] [facility] Comment on above: Performed By: #### C SOWMYA, BMP #### [facility] ([id number]) [address] [place] [address] 05075 WBC (Bld) [#/Vol] 9.0 10*3/uL Normal 4.0-11.0 [facility] Comment on above: Performed By: #### C SOWMYA, BMP #### [facility] ([id number]) [address] [place] [address] 78673 CREATININEon 04-08-2024 Creatinine [Mass/Vol] 1.09 mg/dL High 0.40-1.00 [facility] Comment on above: Result Comment: METH OD TRACEABLE TO IDMS STANDARD Performed By: #### C SOWMYA, BMP #### [facility] ([id number]) [address] [place] [address] 20527 GFR/1.73 sq M.predicted among non-blacks MDRD (S/P/Bld) [Vol rate/Area] 52 mL/min/{1.73_m2} Low >[address] [facility] Comment on above: Result Comment: Reported eGFR is based on the CKD-EPI 2020 equation that does not use a race coefficient. Performed By: #### C BCA, BMP #### [facility] ([id number]) [address] [place] [address] 44868 ELECTROLYTESon 04-08-2024 Anion gap [Moles/Vol] 8 mmol/L Normal 5-15 [facility] Comment on above: Performed By: #### C BCA, BMP #### [facility] ([id number]) [address] [place] [address] 22547 Chloride [Moles/Vol] 107 mmol/L Normal 98-109 [facility] Comment on above: Performed By: #### C BCA, BMP #### [facility] ([id number]) [address] [place] [address] 89823 CO2 [Moles/Vol] 24 mmol/L Normal 22-[address] [facility] Comment on above: Performed By: #### C BCA, BMP #### [facility] ([id number]) [address] [place] [address] 55779 Potassium [Moles/Vol] 3.8 mmol/L Normal 3.5-5.0 [facility] Comment on above: Performed By: #### C BCA, BMP #### [facility] ([id number]) [address] [place] [address] 83959 Sodium [Moles/Vol] 139 mmol/L Normal 134-146 [facility] Comment on above: Performed By: #### C BCA, BMP #### [facility] ([id number]) [address] [place] [address] 20983 BLOOD UREA NITROGENon 2023 Urea nitrogen [Mass/Vol] 20 mg/dL Normal 5-[address] [facility] Comment on above: Performed By: #### C SOWMYA, BMP #### [facility] ([id number]) [address] [place] [address] 96205 CBC AND AUTO DIFFon 04-02-20 24 ABSOLUTE BASOPHIL 0.1 X10E9/L Normal 0.0-0.2 [facility] Comment on above: Performed By: #### C SOWMYA, BMP #### [facility] ([id number]) [address] [place] [address] 67873 ABSOLUTE NEUTROPHIL 4.8 X10E9/L Normal 1.5-6.6 [facility] Comment on above: Performed By: #### C SOWMYA, BMP #### [facility] ([id number]) [address] [place] [address] 47423 Basophils/100 WBC (Bld) 0.7 % Normal [facility] Comment on above: Performed By: #### C SOWMYA, BMP #### [facility] ([id number]) [address] [place] [address] 13572 Eosinophils (Bld) [#/Vol] 0.2 10*3/uL Normal 0.0-0.[address] [facility] Comment on above: Performed By: #### C SOWMYA, BMP #### [facility] ([id number]) [address] [place] [address] 88890 Eosinophils/100 WBC (Bld) 2.5 % Normal [facility] Comment on above: Performed By: #### C SOWMYA, BMP #### [facility] ([id number]) [address] [place] [address] 38389 Erythrocyte distribution width (RBC) [Ratio] 18.6 % High 11.5-15.[address] [facility] Comment on above: Performed By: #### C SOWMYA, BMP #### [facility] ([id number]) [address] [place] [address] 06861 Hematocrit (Bld) [Volume fraction] 28.2 % Low 35-[address] [facility] Comment on above: Performed By: #### C SOWMYA, BMP #### [facility] ([id number]) [address] [place] [address] 28694 Hemoglobin (Bld) [Mass/Vol] 9.1 g/dL Low 11.7-15.[address] [facility] Comment on above: Performed By: #### C SOWMYA, BMP #### [facility] ([id number]) [address] [place] [address] 81855 Lymphocytes (Bld) [#/Vol] 3.2 10*3/uL Normal 1.0-3.[address] [facility] Comment on above: Performed By: #### C SOWMYA, BMP #### [facility] ([id number]) [address] [place] [address] 73279 Lymphocytes/100 WBC (Bld) 34.4 % Normal [facility] Comment on above: Performed By: #### C SOWMYA, BMP #### [facility] ([id number]) [address] [place] [address] 95504 MCH (RBC) [Entitic mass] 24.5 pg Low 27-[address] [facility] Comment on above: Performed By: #### C SOWMYA, BMP #### [facility] ([id number]) [address] [place] [address] 55383 MCHC (RBC) [Mass/Vol] 32.4 g/dL Normal 32-36 [facility] Comment on above: Performed By: #### C SOWMYA, BMP #### [facility] ([id number]) [address] [place] [address] 65303 MCV (RBC) [Entitic vol] 76 fL Low 80-[address] [facility] Comment on above: Performed By: #### C SOWMYA, BMP #### [facility] ([id number]) [address] [place] [address] 09595 Monocytes (Bld) [#/Vol] 1.0 10*3/uL High 0-0.[address] [facility] Comment on above: Performed By: #### C SOWMYA, BMP #### [facility] ([id number]) [address] [place] [address] 25695 Monocytes/100 WBC (Bld) 11.1 % Normal [facility] Comment on above: Performed By: #### C SOWMYA, BMP #### [facility] ([id number]) [address] [place] [address] 89598 Neutrophils/100 WBC (Bld) 51.3 % Normal [facility] Comment on above: Performed By: #### C SOWMYA, BMP #### [facility] ([id number]) [address] [place] [address] [place] [address] Platelet mean volume (Bld) [Entitic vol] 6.9 fL Low 7-[address] [facility] Comment on above: Performed By: #### C SOWMYA, BMP #### [facility] ([id number]) [address] [place] [address] 46326 Platelets (Bld) [#/Vol] 319 10*3/uL Normal 150-[address] [facility] Comment on above: Performed By: #### C SOWMYA, BMP #### [facility] ([id number]) [address] [place] [address] 01662 RBC COUNT 3.72 X10E12/L Low 3.80-5.[address] [facility] Comment on above: Performed By: #### C SOWMYA, BMP #### [facility] ([id number]) [address] [place] [address] 52535 WBC (Bld) [#/Vol] 9.4 10*3/uL Normal 4.0-11.0 [facility] Comment on above: Performed By: #### C BCA, BMP #### [facility] ([id number]) [address] [place] [address] 31601 CREATININEon 04-02-2024 Creatinine [Mass/Vol] 1.13 mg/dL High 0.40-1.00 [facility] Comment on above: Result Comment: METH OD TRACEABLE TO IDMS STANDARD Performed By: #### C BCA, BMP #### [facility] ([id number]) [address] [place] [address] 55263 GFR/1.73 sq M.predicted among non-blacks MDRD (S/P/Bld) [Vol rate/Area] 50 mL/min/{1.73_m2} Low >[address] [facility] Comment on above: Result Comment: Reported eGFR is based on the CKD-EPI 2020 equation that does not use a race coefficient. Performed By: #### C BCA, BMP #### [facility] ([id number]) [address] [place] [address] 90676 ELECTROLYTESon 04-02-2024 Anion gap [Moles/Vol] 7 mmol/L Normal 5-15 [facility] Comment on above: Performed By: #### C BCA, BMP #### [facility] ([id number]) [address] [place] [address] [id number] Chloride [Moles/Vol] 107 mmol/L Normal 98-109 [facility] Comment on above: Performed By: #### C BCA, BMP #### [facility] ([id number]) [address] [place] [address] 63909 CO2 [Moles/Vol] 25 mmol/L Normal 22-[address] [facility] Comment on above: Performed By: #### C BCA, BMP #### [facility] ([id number]) [address] [place] [address] 34965 Potassium [Moles/Vol] 4.1 mmol/L Normal 3.5-5.0 [facility] Comment on above: Performed By: #### C BCA, BMP #### [facility] ([id number]) [address] [place] [address] [id number] Sodium [Moles/Vol] 139 mmol/L Normal 134-146 [facility] Comment on above: Performed By: #### C BCA, BMP #### [facility] ([id number]) [address] [place] [address] 58004 BASIC METABOLIC PANLon 03-30 Anion gap [Moles/Vol] 8 mmol/L Normal 5-15 [facility] Comment on above: Performed By: #### C BCA, BMP #### [facility] ([id number]) [address] [place] [address] 58314 Calcium [Mass/Vol] 9.1 mg/dL Normal 8.5-10.5 [facility] Comment on above: Performed By: #### C BCA, BMP #### [facility] ([id number]) [address] [place] [address] 25668 Chloride [Moles/Vol] 104 mmol/L Normal 98-[facility] [facility] Comment on above: Performed By: #### C BCA, BMP #### [facility] ([id number]) [address] [place] [address] 43352 CO2 [Moles/Vol] 26 mmol/L Normal 22-[address] [facility] Comment on above: Performed By: #### C BCA, BMP #### [facility] ([id number]) [address] [place] [address] 44984 Creatinine [Mass/Vol] 1.14 mg/dL High 0.40-1.00 [facility] Comment on above: Result Comment: METH OD TRACEABLE TO IDMS STANDARD Performed By: #### C BCA, BMP #### [facility] ([id number]) [address] [place] [address] 57513 GFR/1.73 sq M.predicted among non-blacks MDRD (S/P/Bld) [Vol rate/Area] 49 mL/min/{1.73_m2} Low >[address] [facility] Comment on above: Result Comment: Reported eGFR is based on the CKD-EPI 2020 equation that does not use a race coefficient. Performed By: #### C BCA, BMP #### [facility] ([id number]) [address] [place] [address] 28351 Glucose [Mass/Vol] 101 mg/dL High 65-99 [facility] Comment on above: Performed By: #### C BCA, BMP #### [facility] ([id number]) [address] [place] [address] 54357 Potassium [Moles/Vol] 4.2 mmol/L Normal 3.5-5.0 [facility] Comment on above: Performed By: #### C BCA, BMP #### [facility] ([id number]) [address] [place] [address] 57065 Sodium [Moles/Vol] 138 mmol/L Normal 134-146 [facility] Comment on above: Performed By: #### C BCA, BMP #### [facility] ([id number]) [address] [place] [address] 99226 Urea nitrogen [Mass/Vol] 21 mg/dL Normal 5-[address] [facility] Comment on above: Performed By: #### C BCA, BMP #### [facility] ([id number]) [address] [place] [address] 52277 CBC AND AUTO DIFFon 03-18-20 24 ABSOLUTE BASOPHIL 0.1 X10E9/L Normal 0.0-0.2 [facility] Comment on above: Performed By: #### C BCA, BMP #### [facility] ([id number]) [address] [place] [address] 76224 ABSOLUTE NEUTROPHIL 4.5 X10E9/L Normal 1.5-6.6 [facility] Comment on above: Performed By: #### C SOWMYA, BMP #### [facility] ([id number]) [address] [place] [address] 21211 Basophils/100 WBC (Bld) 0.7 % Normal [facility] Comment on above: Performed By: #### C SOWMYA, BMP #### [facility] ([id number]) [address] [place] [address] 70636 Eosinophils (Bld) [#/Vol] 0.4 10*3/uL Normal 0.0-0.[address] [facility] Comment on above: Performed By: #### C SOWMYA, BMP #### [facility] ([id number]) [address] [place] [address] 24300 Eosinophils/100 WBC (Bld) 4.1 % Normal [facility] Comment on above: Performed By: #### C SOWMYA, BMP #### [facility] ([id number]) [address] [place] [address] 00765 Erythrocyte distribution width (RBC) [Ratio] 18.8 % High 11.5-15.[address] [facility] Comment on above: Performed By: #### Timmy DENG, BMP #### [facility] ([id number]) [address] [place] [address] 94018 Hematocrit (Bld) [Volume fraction] 28.0 % Low 35-[address] [facility] Comment on above: Performed By: #### Timmy DENG, BMP #### [facility] ([id number]) [address] [place] [address] 56293 Hemoglobin (Bld) [Mass/Vol] 9.1 g/dL Low 11.7-15.[address] [facility] Comment on above: Performed By: #### C SOWMYA, BMP #### [facility] ([id number]) [address] [place] [address] 71698 Lymphocytes (Bld) [#/Vol] 2.9 10*3/uL Normal 1.0-3.[address] [facility] Comment on above: Performed By: #### C SOWMYA, BMP #### [facility] ([id number]) [address] [place] [address] 44099 Lymphocytes/100 WBC (Bld) 33.2 % Normal [facility] Comment on above: Performed By: #### C SOWMYA, BMP #### [facility] ([id number]) [address] [place] [address] 37937 MCH (RBC) [Entitic mass] 24.4 pg Low 27-[address] [facility] Comment on above: Performed By: #### C SOWMYA, BMP #### [facility] ([id number]) [address] [place] [address] 85900 MCHC (RBC) [Mass/Vol] 32.3 g/dL Normal 32-36 [facility] Comment on above: Performed By: #### C SOWMYA, BMP #### [facility] ([id number]) [address] [place] [address] 70004 MCV (RBC) [Entitic vol] 76 fL Low 80-[address] [facility] Comment on above: Performed By: #### C SOWMYA, BMP #### [facility] ([id number]) [address] [place] [address] 74370 Monocytes (Bld) [#/Vol] 0.8 10*3/uL Normal 0-0.[address] [facility] Comment on above: Performed By: #### C SOWMYA, BMP #### [facility] ([id number]) [address] [place] [address] 10707 Monocytes/100 WBC (Bld) 9.4 % Normal [facility] Comment on above: Performed By: #### C BCA, BMP #### [facility] ([id number]) [address] [place] [address] 41288 Neutrophils/100 WBC (Bld) 52.6 % Normal [facility] Comment on above: Performed By: #### C BCA, BMP #### [facility] ([id number]) [address] [place] [address] 41570 Platelet mean volume (Bld) [Entitic vol] 6.8 fL Low 7-[address] [facility] Comment on above: Performed By: #### C SOWMYA, BMP #### [facility] ([id number]) [address] [place] [address] 60730 Platelets (Bld) [#/Vol] 405 10*3/uL Normal 150-[address] [facility] Comment on above: Performed By: #### C SOWMYA, BMP #### [facility] ([id number]) [address] [place] [address] 46009 RBC COUNT 3.71 X10E12/L Low 3.80-5.[address] [facility] Comment on above: Performed By: #### C BCA, BMP #### [facility] ([id number]) [address] [place] [address] 59756 WBC (Bld) [#/Vol] 8.6 10*3/uL Normal 4.0-11.0 [facility] Comment on above: Performed By: #### C BCA, BMP #### [facility] ([id number]) [address] [place] [address] 91343 BLOOD UREA NITROGENon 2023 Urea nitrogen [Mass/Vol] 14 mg/dL Normal 5-[address] [facility] Comment on above: Performed By: #### C BCA, BMP #### [facility] ([id number]) [address] [place] [address] CBC AND AUTO DIFFon 05-15-20 24 ABSOLUTE BASOPHIL 0.1 X10E9/L Normal 0.0-0.2 [facility] Comment on above: Performed By: #### Timmy DENG, BMP #### [facility] ([id number]) [address] [place] [address] 29308 ABSOLUTE NEUTROPHIL 6.8 X10E9/L High 1.5-6.6 [facility] Comment on above: Performed By: #### C SOWMYA, BMP #### [facility] ([id number]) [address] [place] [address] 01047 Basophils/100 WBC (Bld) 0.6 % Normal [facility] Comment on above: Performed By: #### Timmy DENG, BMP #### [facility] ([id number]) [address] [place] [address] 98008 Eosinophils (Bld) [#/Vol] 0.4 10*3/uL Normal 0.0-0.[address] [facility] Comment on above: Performed By: #### Timmy DENG, BMP #### [facility] ([id number]) [address] [place] [address] 66468 Eosinophils/100 WBC (Bld) 3.7 % Normal [facility] Comment on above: Performed By: #### Timmy DENG, BMP #### [facility] ([id number]) [address] [place] [address] 89850 Erythrocyte distribution width (RBC) [Ratio] 18.8 % High 11.5-15.[address] [facility] Comment on above: Performed By: #### Timmy DENG, BMP #### [facility] ([id number]) [address] [place] [address] 50562 Hematocrit (Bld) [Volume fraction] 27.4 % Low 35-[address] [facility] Comment on above: Performed By: #### Timmy DENG, BMP #### [facility] ([id number]) [address] [place] [address] 03467 Hemoglobin (Bld) [Mass/Vol] 8.8 g/dL Low 11.7-15.[address] [facility] Comment on above: Performed By: #### C SOWMYA, BMP #### [facility] ([id number]) [address] [place] [address] 62185 Lymphocytes (Bld) [#/Vol] 3.3 10*3/uL Normal 1.0-3.[address] [facility] Comment on above: Performed By: #### C SOWMYA, BMP #### [facility] ([id number]) [address] [place] [address] 97531 Lymphocytes/100 WBC (Bld) 27.7 % Normal [facility] Comment on above: Performed By: #### C SOWMYA, BMP #### [facility] ([id number]) [address] [place] [address] 31774 MCH (RBC) [Entitic mass] 24.7 pg Low 27-[address] [facility] Comment on above: Performed By: #### C SOWMYA, BMP #### [facility] ([id number]) [address] [place] [address] 00549 MCHC (RBC) [Mass/Vol] 32.3 g/dL Normal 32-36 [facility] Comment on above: Performed By: #### C SOWMYA, BMP #### [facility] ([id number]) [address] [place] [address] 50008 MCV (RBC) [Entitic vol] 77 fL Low 80-[address] [facility] Comment on above: Performed By: #### C SOWMYA, BMP #### [facility] ([id number]) [address] [place] [address] 27069 Monocytes (Bld) [#/Vol] 1.2 10*3/uL High 0-0.[address] [facility] Comment on above: Performed By: #### C BCA, BMP #### [facility] ([id number]) [address] [place] [address] 20477 Monocytes/100 WBC (Bld) 10.4 % Normal [facility] Comment on above: Performed By: #### C BCA, BMP #### [facility] ([id number]) [address] [place] [address] 32118 Neutrophils/100 WBC (Bld) 57.6 % Normal [facility] Comment on above: Performed By: #### C SOWMYA, BMP #### [facility] ([id number]) [address] [place] [address] 34670 Platelet mean volume (Bld) [Entitic vol] 7.3 fL Normal 7-[address] [facility] Comment on above: Performed By: #### C SOWMYA, BMP #### [facility] ([id number]) [address] [place] [address] 54821 Platelets (Bld) [#/Vol] 255 10*3/uL Normal 150-[address] [facility] Comment on above: Performed By: #### C BCA, BMP #### [facility] ([id number]) [address] [place] [address] 90064 RBC COUNT 3.58 X10E12/L Low 3.80-5.[address] [facility] Comment on above: Performed By: #### C BCA, BMP #### [facility] ([id number]) [address] [place] [address] 91855 WBC (Bld) [#/Vol] 11.8 10*3/uL High 4.0-11.0 [facility] Comment on above: Performed By: #### C BCA, BMP #### [facility] ([id number]) [address] [place] [address] 29182 CREATININEon 05-15-2024 Creatinine [Mass/Vol] 1.09 mg/dL High 0.40-1.00 [facility] Comment on above: Result Comment: METH OD TRACEABLE TO IDMS STANDARD Performed By: #### C SOWMYA, BMP #### [facility] ([id number]) [address] [place] [address] 94656 GFR/1.73 sq M.predicted among non-blacks MDRD (S/P/Bld) [Vol rate/Area] 52 mL/min/{1.73_m2} Low >[address] [facility] Comment on above: Result Comment: Reported eGFR is based on the CKD-EPI 2020 equation that does not use a race coefficient. Performed By: #### C SOWMYA, BMP #### [facility] ([id number]) [address] [place] [address] 35511 ELECTROLYTESon 03-11-2024 Anion gap [Moles/Vol] 7 mmol/L Normal 5-15 [facility] Comment on above: Performed By: #### E LEC, 3094-0, INTERFACE ANALYST, CBCA #### [facility] ([id number]) [address] [place] [address] 09336 Chloride [Moles/Vol] 106 mmol/L Normal 98-109 [facility] Comment on above: Performed By: #### E LEC, 3094-0, INTERFACE ANALYST, CBCA #### [facility] ([id number]) [address] [place] [address] 45050 CO2 [Moles/Vol] 27 mmol/L Normal 22-[address] [facility] Comment on above: Performed By: #### E LEC, 3094-0, INTERFACE ANALYST, CBCA #### [facility] ([id number]) [address] [place] [address] 56904 Potassium [Moles/Vol] 4.2 mmol/L Normal 3.5-5.0 [facility] Comment on above: Performed By: #### E LEC, 3094-0, INTERFACE ANALYST, CBCA #### [facility] ([id number]) [address] [place] [address] 89743 Sodium [Moles/Vol] 140 mmol/L Normal 134-146 [facility] Comment on above: Performed By: #### E LEC, 3094-0, INTERFACE ANALYST, CBCA #### [facility] ([id number]) [address] [place] [address] 40687 CBC AND AUTO DIFFon 03-05-20 24 ABSOLUTE BASOPHIL 0.1 X10E9/L Normal 0.0-0.2 [facility] Comment on above: Performed By: #### C BCA #### [facility] ([id number]) [address] [place] [address] 20780 #### [id number] #### [facility] ([id number]) [address] [place] [address] ABSOLUTE NEUTROPHIL 6.2 X10E9/L Normal 1.5-6.6 [facility] Comment on above: Performed By: #### C BCA #### [facility] ([id number]) [address] [place] [address] 70127 #### 50478-0 #### [facility] ([id number]) [address] [place] [address] Basophils/100 WBC (Bld) 0.6 % Normal [facility] Comment on above: Performed By: #### C BCA #### [facility] ([id number]) [address] [place] [address] 74797 #### 50230-2 #### [facility] ([id number]) [address] [place] [address] Eosinophils (Bld) [#/Vol] 0.3 10*3/uL Normal 0.0-0.[address] [facility] Comment on above: Performed By: #### C BCA #### [facility] ([id number]) [address] [place] [address] 01408 #### 31074-8 #### [facility] ([id number]) [address] [place] [address] Eosinophils/100 WBC (Bld) 2.4 % Normal [facility] Comment on above: Performed By: #### C BCA #### [facility] ([id number]) [address] [place] [address] 79534 #### 92094-4 #### [facility] ([id number]) [address] [place] [address] Erythrocyte distribution width (RBC) [Ratio] 18.9 % High 11.5-15.[address] [facility] Comment on above: Performed By: #### C BCA #### [facility] ([id number]) [address] [place] [address] 36485 #### 26381-0 #### [facility] ([id number]) [address] [place] [address] Hematocrit (Bld) [Volume fraction] 30.3 % Low 35-[address] [facility] Comment on above: Performed By: #### C BCA #### [facility] ([id number]) [address] [place] [address] 91672 #### 33288-4 #### [facility] ([id number]) [address] [place] [address] Hemoglobin (Bld) [Mass/Vol] 9.7 g/dL Low 11.7-15.[address] [facility] Comment on above: Performed By: #### C BCA #### [facility] ([id number]) [address] [place] [address], [place] [address] #### 25067-3 #### [facility] ([id number]) [address] [place] [address] Lymphocytes (Bld) [#/Vol] 3.8 10*3/uL High 1.0-3.[address] [facility] Comment on above: Performed By: #### C BCA #### [facility] ([id number]) [address] [place] [address] 81082 #### 82170-6 #### [facility] ([id number]) [address] [place] [address] Lymphocytes/100 WBC (Bld) 32.9 % Normal [facility] Comment on above: Performed By: #### C BCA #### [facility] ([id number]) [address] [place] [address] 48747 #### 03010-9 #### [facility] ([id number]) [address] [place] [address] MCH (RBC) [Entitic mass] 24.6 pg Low 27-[address] [facility] Comment on above: Performed By: #### C BCA #### [facility] ([id number]) [address] [place] [address] 69651 #### 73579-8 #### [facility] ([id number]) [address] [place] [address] MCHC (RBC) [Mass/Vol] 32.1 g/dL Normal 32-36 [facility] Comment on above: Performed By: #### C BCA #### [facility] ([id number]) [address] [place] [address] 03834 #### 00514-1 #### [facility] ([id number]) [address] [place] [address] MCV (RBC) [Entitic vol] 77 fL Low 80-[address] [facility] Comment on above: Performed By: #### C BCA #### [facility] ([id number]) [address] [place] [address] 26035 #### 95332-6 #### [facility] ([id number]) [address] [place] [address] Monocytes (Bld) [#/Vol] 1.3 10*3/uL High 0-0.[address] [facility] Comment on above: Performed By: #### C BCA #### [facility] ([id number]) [address] [place] [address] 47680 #### 07594-5 #### [facility] ([id number]) [address] [place] [address] Monocytes/100 WBC (Bld) 11.0 % Normal [facility] Comment on above: Performed By: #### C BCA #### [facility] ([id number]) [address] [place] [address] 46793 #### 42463-2 #### [facility] ([id number]) [address] [place] [address] Neutrophils/100 WBC (Bld) 53.1 % Normal [facility] Comment on above: Performed By: #### C BCA #### [facility] ([id number]) [address] [place] [address] 68651 #### 17481-6 #### [facility] ([id number]) [address] [place] [address] Platelet mean volume (Bld) [Entitic vol] 7.5 fL Normal 7-[address] [facility] Comment on above: Performed By: #### C BCA #### [facility] ([id number]) [address] [place] [address] 76953 #### 28294-5 #### [facility] ([id number]) [address] [place] [address] Platelets (Bld) [#/Vol] 320 10*3/uL Normal 150-[address] [facility] Comment on above: Performed By: #### C BCA #### [facility] ([id number]) [address] [place] [address] 20468 #### 09051-2 #### [facility] ([id number]) [address] [facility], [address] [place] [address] 71720 RBC COUNT 3.96 X10E12/L Normal 3.80-5.[address] [facility] Comment on above: Performed By: #### C BCA #### [facility] ([id number]) [address] [place] [address] 62875 #### 75256-9 #### [facility] ([id number]) [address] [place] [address], [address] [place] [address] 65562 WBC (Bld) [#/Vol] 11.7 10*3/uL High 4.0-11.0 [facility] Comment on above: Performed By: #### C BCA #### [facility] ([id number]) [address] [place] [address] 07310 #### 73350-7 #### [facility] ([id number]) [address] [facility] [facility] [address] [place] [address] ESR Photometric method (Bld) [Velocity]on 03-05-2024 ESR, ERYTHROCYTE SEDIMENTATION RATE 43 mm/h High 0-[address] [facility] Comment on above: Performed By: #### C BCA #### [facility] ([id number]) [address] [place] [address] 51904 #### 45229-3 #### [facility] ([id number]) [address] [place] [address] FL SWALLOW MOTILITY FUNCTION on 03-04-2024 FL [...] Dowell MD on 03/04/2024 10:[address] [facility] URINALYSISon 03-03-2024 Bilirubin Ql (U) Negative Normal NEG [facility] Comment on above: Performed By: #### U A #### [facility] ([id number]) [address] [place] [address]00 BLOOD/HGB Negative Normal NEG [facility] Comment on above: Performed By: #### U A #### [facility] ([id number]) [address] [place] [address]389 Color (U) YELLOW Normal YELLOW [facility] Comment on above: Performed By: #### U A #### [facility] ([id number]) [address] [place] [address] 36598 Glucose Ql (U) Negative Normal NEG [facility] Comment on above: Performed By: #### U A #### [facility] ([id number]) [address] [place] [address] 15047 Ketones Ql (U) Negative Normal NEG [facility] Comment on above: Performed By: #### U A #### [facility] ([id number]) [address] [place] [address] 02929 Leukocyte esterase Test strip Ql (U) Negative Normal NEG [facility] Comment on above: Performed By: #### U A #### [facility] ([id number]) [address] [place] [address] 25480 Nitrite Ql (U) Negative Normal NEG [facility] Comment on above: Performed By: #### U A #### [facility] ([id number]) [address] [place] [address] 86023 pH (U) 6.0 [pH] Normal 5.0-8.[address] [facility] Comment on above: Performed By: #### U A #### [facility] ([id number]) [address] [place] [address] 90063 Protein Ql (U) Negative Normal [facility] Comment on above: Performed By: #### U A #### [facility] ([id number]) [address] [place] [address] 80377 Specific gravity (U) [Rel density] 1.020 Normal 1.003-1.[address] [place] [address] Comment on above: Performed By: #### U A #### [facility] ([id number]) [address] [place] [address] 93975 TURBIDITY CLEAR Normal CLEAR [facility] Comment on above: Performed By: #### U A #### [facility] ([id number]) [address] [place] [address] 95540 Urobilinogen Qn (U) 0.2 {Jose'U}/dL Normal <1.[address] [facility] Comment on above: Performed By: #### U A #### [facility] ([id number]) [address] [place] [address] 39630 URINE CULTUREon 03-03-2024 Bacteria identified Cx Nom (U) CULTURE RESULTS NO GROWTH AT <1000 CFU/mL Normal [facility] Comment on above: Performed By: #### 6 30-4 #### [facility] ([id number]) [address], [address] [place] [address] BASIC METABOLIC PANLon 03-02 Anion gap [Moles/Vol] 9 mmol/L Normal 5-15 [facility] Comment on above: Performed By: #### C BCA, BMP #### [facility] ([id number]) [address] [place] [address] 40961 Calcium [Mass/Vol] 8.4 mg/dL Low 8.5-10.5 [facility] Comment on above: Performed By: #### C BCA, BMP #### [facility] ([id number]) [address] [place] [address] 89742 Chloride [Moles/Vol] 106 mmol/L Normal 98-109 [facility] Comment on above: Performed By: #### C BCA, BMP #### [facility] ([id number]) [address] [place] [address] 71056 CO2 [Moles/Vol] 27 mmol/L Normal 22-[address] [facility] Comment on above: Performed By: #### C BCA, BMP #### [facility] ([id number]) [address] [place] [address] 22930 Creatinine [Mass/Vol] 1.13 mg/dL High 0.40-1.00 [facility] Comment on above: Result Comment: METH OD TRACEABLE TO IDMS STANDARD Performed By: #### C BCA, BMP #### [facility] ([id number]) [address] [place] [address] 96342 GFR/1.73 sq M.predicted among non-blacks MDRD (S/P/Bld) [Vol rate/Area] 50 mL/min/{1.73_m2} Low >[address] [facility] Comment on above: Result Comment: Reported eGFR is based on the CKD-EPI 2020 equation that does not use a race coefficient. Performed By: #### C SOWMYA, BMP #### [facility] ([id number]) [address] [place] [address] 21493 Glucose [Mass/Vol] 106 mg/dL High 65-99 [facility] Comment on above: Performed By: #### C SOWMYA, BMP #### [facility] ([id number]) [address] [place] [address] 34124 Potassium [Moles/Vol] 3.4 mmol/L Low 3.5-5.0 [facility] Comment on above: Performed By: #### C SOWMYA, BMP #### [facility] ([id number]) [address] [place] [address] 69064 Sodium [Moles/Vol] 142 mmol/L Normal 134-146 [facility] Comment on above: Performed By: #### C SOWMYA, BMP #### [facility] ([id number]) [address] [place] [address] 25013 Urea nitrogen [Mass/Vol] 35 mg/dL High 5-[address] [facility] Comment on above: Performed By: #### Timmy DENG, BMP #### [facility] ([id number]) [address] [place] [address] 01874 CBC AND AUTO DIFFon 03-02-20 24 ABSOLUTE BASOPHIL 0.1 X10E9/L Normal 0.0-0.2 [facility] Comment on above: Performed By: #### Timmy DENG, BMP #### [facility] ([id number]) [address] [place] [address] 34622 ABSOLUTE NEUTROPHIL 7.0 X10E9/L High 1.5-6.6 [facility] Comment on above: Performed By: #### C BCA, BMP #### [facility] ([id number]) [address] [place] [address] 19397 Basophils/100 WBC (Bld) 0.6 % Normal [facility] Comment on above: Performed By: #### C BCA, BMP #### [facility] ([id number]) [address] [place] [address] 75044 Eosinophils (Bld) [#/Vol] 0.1 10*3/uL Normal 0.0-0.[address] [facility] Comment on above: Performed By: #### C SOWMYA, BMP #### [facility] ([id number]) [address] [place] [address] 70991 Eosinophils/100 WBC (Bld) 0.5 % Normal [facility] Comment on above: Performed By: #### C SOWMYA, BMP #### [facility] ([id number]) [address] [place] [address] [place] [address] Erythrocyte distribution width (RBC) [Ratio] 18.2 % High 11.5-15.[address] [facility] Comment on above: Performed By: #### C BCA, BMP #### [facility] ([id number]) [address] [place] [address] 15239 Hematocrit (Bld) [Volume fraction] 30.8 % Low 35-[address] [facility] Comment on above: Performed By: #### C BCA, BMP #### [facility] ([id number]) [address] [place] [address] 43609 Hemoglobin (Bld) [Mass/Vol] 10.0 g/dL Low 11.7-15.[address] [facility] Comment on above: Performed By: #### C BCA, BMP #### [facility] ([id number]) [address] [place] [address] Lymphocytes (Bld) [#/Vol] 4.1 10*3/uL High 1.0-3.[address] [facility] Comment on above: Performed By: #### C SOWMYA, BMP #### [facility] ([id number]) [address] [place] [address] 88000 Lymphocytes/100 WBC (Bld) 32.1 % Normal [facility] Comment on above: Performed By: #### C SOWMYA, BMP #### [facility] ([id number]) [address] [place] [address] [place] [address] MCH (RBC) [Entitic mass] 24.9 pg Low 27-[address] [facility] Comment on above: Performed By: #### C SOWMYA, BMP #### [facility] ([id number]) [address] [place] [address] 92283 MCHC (RBC) [Mass/Vol] 32.3 g/dL Normal 32-36 [facility] Comment on above: Performed By: #### C SOWMYA, BMP #### [facility] ([id number]) [address] [place] [address] 77921 MCV (RBC) [Entitic vol] 77 fL Low 80-[address] [facility] Comment on above: Performed By: #### C BCA, BMP #### [facility] ([id number]) [address] [place] [address] [place] [address] Monocytes (Bld) [#/Vol] 1.5 10*3/uL High 0-0.[address] [facility] Comment on above: Performed By: #### C BCA, BMP #### [facility] ([id number]) [address] [place] [address] 05329 Monocytes/100 WBC (Bld) 11.5 % Normal [facility] Comment on above: Performed By: #### C SOWMYA, BMP #### [facility] ([id number]) [address] [place] [address] 99703 Neutrophils/100 WBC (Bld) 55.3 % Normal [facility] Comment on above: Performed By: #### Timmy DENG, BMP #### [facility] ([id number]) [address] [place] [address] 51662 Platelet mean volume (Bld) [Entitic vol] 7.4 fL Normal 7-[address] [facility] Comment on above: Performed By: #### Timmy DENG, BMP #### [facility] ([id number]) [address] [place] [address] 52033 Platelets (Bld) [#/Vol] 360 10*3/uL Normal 150-[address] [facility] Comment on above: Performed By: #### C SOWMYA, BMP #### [facility] ([id number]) [address] [place] [address] 13126 RBC COUNT 4.00 X10E12/L Normal 3.80-5.[address] [facility] Comment on above: Performed By: #### Timmy DENG, BMP #### [facility] ([id number]) [address] [place] [address] 77061 WBC (Bld) [#/Vol] 12.7 10*3/uL High 4.0-11.0 [facility] Comment on above: Performed By: #### Timmy DENG, BMP #### [facility] ([id number]) [address] [place] [address] 24746 BASIC METABOLIC PANLon 02-26 Anion gap [Moles/Vol] 8 mmol/L Normal 5-15 [facility] Comment on above: Performed By: #### Timmy DENG, BMP #### [facility] ([id number]) [address] [place] [address] 79519 Calcium [Mass/Vol] 8.7 mg/dL Normal 8.5-10.5 [facility] Comment on above: Performed By: #### C BCA, BMP #### [facility] ([id number]) [address] [place] [address] 51015 Chloride [Moles/Vol] 97 mmol/L Low 98-109 [facility] Comment on above: Performed By: #### C BCA, BMP #### [facility] ([id number]) [address] [place] [address] 78098 CO2 [Moles/Vol] 29 mmol/L Normal 22-[address] [facility] Comment on above: Performed By: #### C BCA, BMP #### [facility] ([id number]) [address] [place] [address] 37273 Creatinine [Mass/Vol] 1.22 mg/dL High 0.40-1.00 [facility] Comment on above: Result Comment: METH OD TRACEABLE TO IDMS STANDARD Performed By: #### C BCA, BMP #### [facility] ([id number]) [address] [place] [address] 40949 GFR/1.73 sq M.predicted among non-blacks MDRD (S/P/Bld) [Vol rate/Area] 45 mL/min/{1.73_m2} Low >[address] [facility] Comment on above: Result Comment: Reported eGFR is based on the CKD-EPI 2020 equation that does not use a race coefficient. Performed By: #### C BCA, BMP #### [facility] ([id number]) [address] [place] [address] 76316 Glucose [Mass/Vol] 123 mg/dL High 65-99 [facility] Comment on above: Performed By: #### C BCA, BMP #### [facility] ([id number]) [address] [place] [address] 59840 Potassium [Moles/Vol] 4.0 mmol/L Normal 3.5-5.0 [facility] Comment on above: Performed By: #### C BCA, BMP #### [facility] ([id number]) [address] [place] [address] 64748 Sodium [Moles/Vol] 134 mmol/L Normal 134-146 [facility] Comment on above: Performed By: #### C SOWMYA, BMP #### [facility] ([id number]) [address] [place] [address] 01842 Urea nitrogen [Mass/Vol] 35 mg/dL High 5-[address] [facility] Comment on above: Performed By: #### C SOWMYA, BMP #### [facility] ([id number]) [address] [place] [address] 74427 CBC AND AUTO DIFFon 02-27-20 24 Eosinophils (Bld) [#/Vol] 0.2 10*3/uL Normal 0.0-0.[address] [facility] Comment on above: Performed By: #### C SOWMYA, BMP #### [facility] ([id number]) [address] [place] [address] 64410 Eosinophils/100 WBC (Bld) 1.0 % Normal [facility] Comment on above: Performed By: #### C SOWMYA, BMP #### [facility] ([id number]) [address] [place] [address] 76452 Erythrocyte distribution width (RBC) [Ratio] 18.2 % High 11.5-15.[address] [facility] Comment on above: Performed By: #### C SOWMYA, BMP #### [facility] ([id number]) [address] [place] [address] 76704 Hematocrit (Bld) [Volume fraction] 35.1 % Normal 35-[address] [facility] Comment on above: Performed By: #### C SOWMYA, BMP #### [facility] ([id number]) [address] [place] [address] 07953 Hemoglobin (Bld) [Mass/Vol] 11.4 g/dL Low 11.7-15.[address] [facility] Comment on above: Performed By: #### C BCA, BMP #### [facility] ([id number]) [address] [place] [address] 45179 Lymphocytes (Bld) [#/Vol] 4.0 10*3/uL High 1.0-3.[address] [facility] Comment on above: Performed By: #### C SOWMYA, BMP #### [facility] ([id number]) [address] [place] [address] 31321 Lymphocytes/100 WBC (Bld) 21.0 % Normal [facility] Comment on above: Performed By: #### C SOWMYA, BMP #### [facility] ([id number]) [address] [place] [address] 36875 MCH (RBC) [Entitic mass] 24.6 pg Low 27-[address] [facility] Comment on above: Performed By: #### C SOWMYA, BMP #### [facility] ([id number]) [address] [place] [address] 89578 MCHC (RBC) [Mass/Vol] 32.5 g/dL Normal 32-36 [facility] Comment on above: Performed By: #### C SOWMYA, BMP #### [facility] ([id number]) [address] [place] [address] 60804 MCV (RBC) [Entitic vol] 76 fL Low 80-[address] [facility] Comment on above: Performed By: #### C BCA, BMP #### [facility] ([id number]) [address] [place] [address] 35854 Monocytes (Bld) [#/Vol] 1.4 10*3/uL High 0-0.[address] [facility] Comment on above: Performed By: #### C BCA, BMP #### [facility] ([id number]) [address] [place] [address] 14656 Monocytes/100 WBC (Bld) 7.6 % Normal [facility] Comment on above: Performed By: #### Timmy DENG, BMP #### [facility] ([id number]) [address] [place] [address] 51573 MYELOCYTE 1.0 % Normal [facility] Comment on above: Performed By: #### Timmy DENG, BMP #### [facility] ([id number]) [address] [place] [address] 52351 Neutrophils (Bld) [#/Vol] 13.1 10*3/uL High 1.5-6.[address] [facility] Comment on above: Performed By: #### Timmy DENG, BMP #### [facility] ([id number]) [address] [place] [address] 10299 Platelet mean volume (Bld) [Entitic vol] 7.2 fL Normal 7-[address] [facility] Comment on above: Performed By: #### C SOWMYA, BMP #### [facility] ([id number]) [address] [place] [address] 56634 Platelets (Bld) [#/Vol] 398 10*3/uL Normal 150-[address] [facility] Comment on above: Performed By: #### Timmy DENG, BMP #### [facility] ([id number]) [address] [place] [address] 94491 RBC COUNT 4.63 X10E12/L Normal 3.80-5.[address] [facility] Comment on above: Performed By: #### C SOWMYA, BMP #### [facility] ([id number]) [address] [place] [address] 24527 SEG NEUTROPHIL 69.4 % Normal [facility] Comment on above: Performed By: #### Timmy DENG, BMP #### [facility] ([id number]) [address] [place] [address] [place] [address] WBC (Bld) [#/Vol] 18.9 10*3/uL High 4.0-11.0 [facility] Comment on above: Performed By: #### C BCA, BMP #### [facility] ([id number]) [address] [place] [address], [place] [address] CBC AND AUTO DIFFon 02-25-20 24 Band form neutrophils/100 WBC (Bld) 1.0 % Normal [facility] Comment on above: Performed By: #### E LEC #### [facility] ([id number]) [address] [address] [place] [address] Erythrocyte distribution width (RBC) [Ratio] 18.4 % High 11.5-15.0 [facility] Comment on above: Performed By: #### E LEC #### [facility] ([id number]) [address] [address] [place] [address] Hematocrit (Bld) [Volume fraction] 36.0 % Normal 35-47 [facility] Comment on above: Performed By: #### E LEC #### [facility] ([id number]) [address] [facility] [address] [place] [address] Hemoglobin (Bld) [Mass/Vol] 11.6 g/dL Low 11.7-15.5 [facility] Comment on above: Performed By: #### E LEC #### [facility] ([id number]) [address] [address] [place] [address] HYPOCHROMIA 1+ Abnormal NONE [facility] Comment on above: Performed By: #### E LEC #### [facility] ([id number]) [address] [address] [place] [address] Lymphocytes (Bld) [#/Vol] 4.6 10*3/uL High 1.0-3.5 [facility] Comment on above: Performed By: #### E LEC #### [facility] ([id number]) [address] [place] [address] Lymphocytes/100 WBC (Bld) 28.0 % Normal [facility] Comment on above: Performed By: #### E LEC #### [facility] ([id number]) [address] [place] [address] MCH (RBC) [Entitic mass] 24.9 pg Low 27-34 [facility] Comment on above: Performed By: #### E LEC #### [facility] ([id number]) [address] [place] [address] MCHC (RBC) [Mass/Vol] 32.3 g/dL Normal 32-36 [facility] Comment on above: Performed By: #### E LEC #### [facility] ([id number]) [address] [place] [address] MCV (RBC) [Entitic vol] 77 fL Low 80-100 [facility] Comment on above: Performed By: #### E LEC #### [facility] ([id number]) [address] [place] [address] Monocytes (Bld) [#/Vol] 1.3 10*3/uL High 0-0.9 [facility] Comment on above: Performed By: #### E LEC #### [facility] ([id number]) [address] [place] [address] Monocytes/100 WBC (Bld) 8.0 % Normal [facility] Comment on above: Performed By: #### E LEC #### [facility] ([id number]) [address] [place] [address] MYELOCYTE 1.0 % Normal [facility] Comment on above: Performed By: #### E LEC #### [facility] ([id number]) [address] [place] [address] Neutrophils (Bld) [#/Vol] 10.2 10*3/uL High 1.5-6.6 [facility] Comment on above: Performed By: #### E LEC #### [facility] ([id number]) [address] [place] [address] Platelet mean volume (Bld) [Entitic vol] 6.8 fL Low 7-12 [facility] Comment on above: Performed By: #### E LEC #### [facility] ([id number]) [address] [place] [address] Platelets (Bld) [#/Vol] 480 10*3/uL High 150-450 [facility] Comment on above: Performed By: #### E LEC #### [facility] ([id number]) [address] [place] [address] RBC COUNT 4.66 X10E12/L Normal 3.80-5.20 [facility] Comment on above: Performed By: #### E LEC #### [facility] ([id number]) [address] [place] [address] SEG NEUTROPHIL 62.0 % Normal [facility] Comment on above: Performed By: #### E LEC #### [facility] ([id number]) [address] [place] [address] WBC (Bld) [#/Vol] 16.3 10*3/uL High 4.0-11.0 [facility] Comment on above: Performed By: #### E LEC #### [facility] ([id number]) [address] [place] [address] COMPREHENSIVE METABOLIC PANE Harsha 02-25-2024 Albumin [Mass/Vol] 2.8 g/dL Low 3.2-5.3 [facility] Comment on above: Performed By: #### E LEC #### [facility] ([id number]) [address] [place] [address] ALP [Catalytic activity/Vol] 61 U/L Normal 39-130 [facility] Comment on above: Performed By: #### E LEC #### [facility] ([id number]) [address] [place] [address] ALT [Catalytic activity/Vol] 16 U/L Normal 0-31 [facility] Comment on above: Performed By: #### E LEC #### [facility] ([id number]) [address] [place] [address] Anion gap [Moles/Vol] 8 mmol/L Normal 5-15 [facility] Comment on above: Performed By: #### E LEC #### [facility] ([id number]) [address] [place] [address] AST [Catalytic activity/Vol] 20 U/L Normal 0-41 [facility] Comment on above: Performed By: #### E LEC #### [facility] ([id number]) [address] [place] [address] Bilirubin [Mass/Vol] 0.3 mg/dL Normal 0.3-1.2 [facility] Comment on above: Performed By: #### E LEC #### [facility] ([id number]) [address] [place] [address] Calcium [Mass/Vol] 9.1 mg/dL Normal 8.5-10.5 [facility] Comment on above: Performed By: #### E LEC #### [facility] ([id number]) [address] [place] [address] Chloride [Moles/Vol] 101 mmol/L Normal 98-109 [facility] Comment on above: Performed By: #### E LEC #### [facility] ([id number]) [address] [place] [address] CO2 [Moles/Vol] 29 mmol/L Normal 22-32 [facility] Comment on above: Performed By: #### E LEC #### [facility] ([id number]) [address] [place] [address] Creatinine [Mass/Vol] 1.16 mg/dL High 0.40-1.00 [facility] Comment on above: Result Comment: METH OD TRACEABLE TO IDMS STANDARD Performed By: #### E LEC #### [facility] ([id number]) [address] [facility] [address] [place] [address] GFR/1.73 sq M.predicted among non-blacks MDRD (S/P/Bld) [Vol rate/Area] 48 mL/min/{1.73_m2} Low >59 [facility] Comment on above: Result Comment: Reported eGFR is based on the CKD-EPI 2020 equation that does not use a race coefficient. Performed By: #### E LEC #### [facility] ([id number]) [address] [place] [address] Glucose [Mass/Vol] 73 mg/dL Normal 65-99 [facility] Comment on above: Performed By: #### E LEC #### [facility] ([id number]) [address] [facility] [facility] [address] [place] [address] Potassium [Moles/Vol] 5.0 mmol/L Normal 3.5-5.0 [facility] Comment on above: Performed By: #### E LEC #### [facility] ([id number]) [address] [facility] [facility] [place] [address] Protein [Mass/Vol] 6.2 g/dL Normal 6.0-8.0 [facility] Comment on above: Performed By: #### E LEC #### [facility] ([id number]) [address] [place] [address] Sodium [Moles/Vol] 138 mmol/L Normal 134-146 [facility] Comment on above: Performed By: #### E LEC #### [facility] ([id number]) [address] [place] [address] Urea nitrogen [Mass/Vol] 44 mg/dL High 5-27 [facility] Comment on above: Performed By: #### E LEC #### [facility] ([id number]) [address], [address] [place] [address] Creatinine (U) [Mass/Vol]on 02-25-2024 URINE CREATININE,RDM 57.71 mg/dL Normal [facility] Comment on above: Performed By: #### E LEC #### [facility] ([id number]) [address], [address] [place] [address] MAGNESIUMon 02-25-2024 Magnesium [Mass/Vol] 1.9 mg/dL Normal 1.8-2.6 [facility] Comment on above: Performed By: #### E LEC #### [facility] ([id number]) [address], [address] [place] [address] Osmolality (U) [Osmolality]o n 02-25-2024 URINE OSMOLALITY 631 mOsm/kg H2 Normal 300-1300 [facility] Comment on above: Performed By: #### E LEC #### [facility] ([id number]) [address], [address] [place] [address] PHOSPHORUSon 02-25-2024 Phosphate [Mass/Vol] 5.9 mg/dL High 2.4-4.9 [facility] Comment on above: Result Comment: SPEC IMEN HEMOLYZED, RESULTS INCREASED SLIGHTLY HEMOLYZED Performed By: #### E LEC #### [facility] ([id number]) [address] [place] [address], [address] [address] Provider Letteron 02-25-2024 Provider Letter (Inserted Image. Sahra ble to display) February 25, 2024 GERA PERDUE [address] [place] [address] : 1945 Dear Gera Perdue , We [...] Sincerely, [facility] option #3 Normal [facility] URINE SODIUM,RANDOMon 2023 Sodium (U) [Moles/Vol] 119 mmol/L Normal Pr [facility] Comment on above: Performed By: #### E LEC #### [facility] ([id number]) [address] [place] [address] AFB CULTURE(CONCENTRATED)on 02-24-2024 Mycobacterium sp identified Org specific cx Nom (Unsp spec) SPECIMEN NOTES SPECIMEN 2 AFB SMEAR NO ACID FAST BACILLI (CONCENTRATED SMEAR) CULTURE RESULTS NO ACID FAST BACILLI ISOLATED IN [address] [facility] Comment on above: Performed By: #### E LEC #### [facility] ([id number]) [address] [place] [address] Mycobacterium sp identified Org specific cx Nom (Unsp spec) SPECIMEN NOTES SPECIMEN 1 AFB SMEAR NO ACID FAST BACILLI (CONCENTRATED SMEAR) CULTURE RESULTS NO ACID FAST BACILLI ISOLATED IN [address] [facility] Comment on above: Performed By: #### E LEC #### [facility] ([id number]) [address] [place] [address] AND DIFFon 2023 BODY FLUID COMMENT Interpreta tion-- ------ Normal [facility] Comment on above: Result Comment: Refe rence values for this fluid type are undefined, as fluid accumulation is considered abnormal. Performed By: #### E LEC #### [facility] ([id number]) [address] [place] [address] FLUID CLARITY HAZY Normal [facility] Comment on above: Performed By: #### E LEC #### [facility] ([id number]) [address], [address] [place] [address] FLUID COLOR COLORLESS Normal [facility] Comment on above: Performed By: #### E LEC #### [facility] ([id number]) [address], [address] [place] [address] FLUID LYMPHOCYTE 6 % Normal [facility] Comment on above: Performed By: #### E LEC #### [facility] ([id number]) [address], [address] [place] [address] FLUID NEUTROPHILS 69 % Normal [facility] Comment on above: Performed By: #### E LEC #### [facility] ([id number]) [address] [place] [address] 34 /uL Normal [facility] Comment on above: Performed By: #### E LEC #### [facility] ([id number]) [address], [address] [place] [address] FLUID SPECIMEN TYPE BRONCHOALVEOLAR LAVAGE Normal [facility] Comment on above: Result Comment: RIGH T LUNG, LOWER LOBE SPECIMEN 2 Performed By: #### E LEC #### [facility] ([id number]) [address], [address] [place] [address] MACROPHAGES 25 % Normal [facility] Comment on above: Performed By: #### E LEC #### [facility] ([id number]) [address], [address] [place] [address] 440 /uL Normal [facility] Comment on above: Performed By: #### E LEC #### [facility] ([id number]) [address], [address] [place] [address] CBC AND AUTO DIFFon 02-24-20 Erythrocyte distribution width (RBC) [Ratio] 18.3 % High 11.5-15.0 [facility] Comment on above: Performed By: #### E LEC #### [facility] ([id number]) [address], [address] [place] [address] Hematocrit (Bld) [Volume fraction] 34.7 % Low 35-47 [facility] Comment on above: Performed By: #### E LEC #### [facility] ([id number]) [address] [place] [address] Hemoglobin (Bld) [Mass/Vol] 11.2 g/dL Low 11.7-15.5 [facility] Comment on above: Performed By: #### E LEC #### [facility] ([id number]) [address] [place] [address] Lymphocytes (Bld) [#/Vol] 2.8 10*3/uL Normal 1.0-3.5 [facility] Comment on above: Performed By: #### E LEC #### [facility] ([id number]) [address] [place] [address] Lymphocytes/100 WBC (Bld) 17.0 % Normal [facility] Comment on above: Performed By: #### E LEC #### [facility] ([id number]) [address] [place] [address] MCH (RBC) [Entitic mass] 24.6 pg Low 27-34 [facility] Comment on above: Performed By: #### E LEC #### [facility] ([id number]) [address] [place] [address] MCHC (RBC) [Mass/Vol] 32.1 g/dL Normal 32-36 [facility] Comment on above: Performed By: #### E LEC #### [facility] ([id number]) [address], [address] [place] [address] MCV (RBC) [Entitic vol] 77 fL Low 80-100 [facility] Comment on above: Performed By: #### E LEC #### [facility] ([id number]) [address] [place] [address] Metamyelocytes/100 WBC (Bld) 1.0 % Normal [facility] Comment on above: Performed By: #### E LEC #### [facility] ([id number]) [address] [place] [address] Monocytes (Bld) [#/Vol] 0.7 10*3/uL Normal 0-0.9 [facility] Comment on above: Performed By: #### E LEC #### [facility] ([id number]) [address] [place] [address] Monocytes/100 WBC (Bld) 4.0 % Normal [facility] Comment on above: Performed By: #### E LEC #### [facility] ([id number]) [address] [place] [address] Neutrophils (Bld) [#/Vol] 12.7 10*3/uL High 1.5-6.6 [facility] Comment on above: Performed By: #### E LEC #### [facility] ([id number]) [address] [place] [address] Platelet mean volume (Bld) [Entitic vol] 6.7 fL Low 7-12 [facility] Comment on above: Performed By: #### E LEC #### [facility] ([id number]) [address] [place] [address] Platelets (Bld) [#/Vol] 479 10*3/uL High 150-450 [facility] Comment on above: Performed By: #### E LEC #### [facility] ([id number]) [address] [place] [address] RBC COUNT 4.54 X10E12/L Normal 3.80-5.20 [facility] Comment on above: Performed By: #### E LEC #### [facility] ([id number]) [address] [place] [address] RBC morphology finding Nom (Bld) NORMAL Normal [facility] Comment on above: Performed By: #### E LEC #### [facility] ([id number]) [address] [place] [address] SEG NEUTROPHIL 78.0 % Normal [facility] Comment on above: Performed By: #### E LEC #### [facility] ([id number]) [address] [place] [address] WBC (Bld) [#/Vol] 16.4 10*3/uL High 4.0-11.0 [facility] Comment on above: Performed By: #### E LEC #### [facility] ([id number]) [address] [place] [address] COMPREHENSIVE METABOLIC PANE Harsha 02-24-2024 Albumin [Mass/Vol] 2.8 g/dL Low 3.2-5.3 [facility] Comment on above: Performed By: #### E LEC #### [facility] ([id number]) [address] [place] [address] ALP [Catalytic activity/Vol] 63 U/L Normal 39-130 [facility] Comment on above: Performed By: #### E LEC #### [facility] ([id number]) [address] [place] [address] ALT [Catalytic activity/Vol] 11 U/L Normal 0-31 [facility] Comment on above: Performed By: #### E LEC #### [facility] ([id number]) [address] [place] [address] Anion gap [Moles/Vol] 6 mmol/L Normal 5-15 [facility] Comment on above: Performed By: #### E LEC #### [facility] ([id number]) [address] [place] [address] AST [Catalytic activity/Vol] 12 U/L Normal 0-41 [facility] Comment on above: Performed By: #### E LEC #### [facility] ([id number]) [address] [place] [address] Bilirubin [Mass/Vol] 0.2 mg/dL Low 0.3-1.2 [facility] Comment on above: Performed By: #### E LEC #### [facility] ([id number]) [address] [place] [address] Calcium [Mass/Vol] 9.1 mg/dL Normal 8.5-10.5 [facility] Comment on above: Performed By: #### E LEC #### [facility] ([id number]) [address] [place] [address] Chloride [Moles/Vol] 101 mmol/L Normal 98-109 [facility] Comment on above: Performed By: #### E LEC #### [facility] ([id number]) [address] [place] [address] CO2 [Moles/Vol] 31 mmol/L Normal 22-32 [facility] Comment on above: Performed By: #### E LEC #### [facility] ([id number]) [address] [address] [place] [address] Creatinine [Mass/Vol] 1.05 mg/dL High 0.40-1.00 [facility] Comment on above: Result Comment: METH OD TRACEABLE TO IDMS STANDARD Performed By: #### E LEC #### [facility] ([id number]) [address] [address] [place] [address] GFR/1.73 sq M.predicted among non-blacks MDRD (S/P/Bld) [Vol rate/Area] 54 mL/min/{1.73_m2} Low >59 [facility] Comment on above: Result Comment: Reported eGFR is based on the CKD-EPI 2020 equation that does not use a race coefficient. Performed By: #### E LEC #### [facility] ([id number]) [address] [address] [place] [address] Glucose [Mass/Vol] 91 mg/dL Normal 65-99 [facility] Comment on above: Performed By: #### E LEC #### [facility] ([id number]) [address] [address] [place] [address] Potassium [Moles/Vol] 4.5 mmol/L Normal 3.5-5.0 [facility] Comment on above: Performed By: #### E LEC #### [facility] ([id number]) [address] [address] [place] [address] Protein [Mass/Vol] 6.2 g/dL Normal 6.0-8.0 [facility] Comment on above: Performed By: #### E LEC #### [facility] ([id number]) [address] [address] [place] [address] Sodium [Moles/Vol] 138 mmol/L Normal 134-146 [facility] Comment on above: Performed By: #### E LEC #### [facility] ([id number]) [address] [place] [address], [address] [place] [address] Urea nitrogen [Mass/Vol] 33 mg/dL High 5-27 [facility] Comment on above: Performed By: #### E LEC #### [facility] ([id number]) [address] [place] [address], [facility] [address] [place] [address] Cytologyon 02-24-2024 Cytology Normal [facility] Comment on above: Result Comment: [facility] [address] [place] [address] Cytology Consultation Patient Name:LIDA PERDUEB:1945 (Age: 78)Gender:FTaken:4Reported:02/27/2024 16:56Physician(s):Elsa Quinonez MD ([phone])Copy To:Noe Huang [facility]:[id number]. Rec. #:[id number]: #[id number] Final Cytologic Diagnosis 1. Right lower lobe, bronchial washing: No malignant cells identified. 2. Right lower lobe, bronchoalveolar lavage: No malignant cells identified. 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 H&E, Non DISTRICT RESOURCE OFFICER [employer] Fee Code(s): 1; 84629, 14643 2; 98165, 03966 FUNGAL CULTUREon 02-24-2024 Fungus identified Cx Nom (Unsp spec) SPECIMEN NOTES SPECIMEN 2 FUNGAL SMEAR NO FUNGAL ELEMENTS SEEN ON CONCENTRATED SMEAR CULTURE RESULTS NO FUNGUS ISOLATED AFTER 4 WEEKS Normal [facility] Comment on above: Performed By: #### E LEC #### [facility] ([id number]) [address] [place] [address] Fungus identified Cx Nom (Unsp spec) SPECIMEN NOTES SPECIMEN 1 FUNGAL SMEAR NO FUNGAL ELEMENTS SEEN ON CONCENTRATED SMEAR CULTURE RESULTS NO FUNGUS ISOLATED AFTER [address] [facility] Comment on above: Performed By: #### E LEC #### [facility] ([id number]) [address] [place] [address] LOWER RESPIRATORY CULTUREon 02-24-2024 Bacteria identified Respiratory culture Nom (Sput) SPECIMEN NOTES SPECIMEN 2 GRAM STAIN 1 to 9 WHITE BLOOD CELLS/LPF 1 to 9 SQUAMOUS EPITHELIAL CELLS/LPF 0 CILIATED EPITHELIAL CELLS/LPF NO ORGANISMS SEEN CULTURE RESULTS RARE NORMAL ORAL KIMBERLY Normal [facility] Comment on above: Performed By: #### E LEC #### [facility] ([id number]) [address] [place] [address] Bacteria identified Respiratory culture Nom (Sput) SPECIMEN NOTES SPECIMEN 1 GRAM STAIN 1 to 9 WHITE BLOOD CELLS/LPF 1 to 9 SQUAMOUS EPITHELIAL CELLS/LPF 0 CILIATED EPITHELIAL CELLS/LPF NO ORGANISMS SEEN CULTURE RESULTS RARE NORMAL ORAL KIMBERLY Normal [facility] Comment on above: Performed By: #### E LEC #### [facility] ([id number]) [address] [place] [address] M. pneumoniae DNA ELIZABETH+probe Ql (Unsp spec)on 02-24-2024 M PNEUMONIAE DNA PCR See Below Normal [facility] Comment on above: Result Comment: NOTE [...] developed and its performance characteristics determined by [facility]. It has not been cleared or approved by the [place] Food and Drug Administration. This test was performed in a CLIA certified laboratory and is intended for clinical purposes. Performed By: [facility] [address] [place] [address] [employer] Department Supervisor: Eduardo Lindsay MD, PhD CLIA Number: [id number] SOURCE: Sputum Performed By: #### E LEC #### [facility] ([id number]) [address] [facility] [address] [place] [address] MAGNESIUMon 02-24-2024 Magnesium [Mass/Vol] 2.1 mg/dL Normal 1.8-2.6 [facility] Comment on above: Performed By: #### E LEC #### [facility] ([id number]) [address] [facility] [address] [place] [address] PHOSPHORUSon 02-24-2024 Phosphate [Mass/Vol] 4.6 mg/dL Normal 2.4-4.9 [facility] Comment on above: Performed By: #### E LEC #### [facility] ([id number]) [address] [address] [place] [address] Procalcitonin IA [Mass/Vol]o n 02-24-2024 PROCALCITONIN <0.05 Normal <0.05 [facility] Comment on above: Result Comment: NOTE <0.50 ng/mL - Low risk of severe sepsis and/or septic shock. <2.00 ng/mL - Recommend retesting within 6-24 hours. >2.00 ng/mL - High risk of sepsis and/or septic shock. Performed By: #### E LEC #### [facility] ([id number]) [address], [facility] [address] [place] [address] CBC AND AUTO DIFFon 02-23-20 24 Band form neutrophils/100 WBC (Bld) 1.0 % Normal [facility] Comment on above: Performed By: #### E LEC #### [facility] ([id number]) [address] [address] Erythrocyte distribution width (RBC) [Ratio] 18.2 % High 11.5-15.0 [facility] Comment on above: Performed By: #### E LEC #### [facility] ([id number]) [address] [address] Hematocrit (Bld) [Volume fraction] 35.2 % Normal 35-47 [facility] Comment on above: Performed By: #### E LEC #### [facility] ([id number]) [address] [address] Hemoglobin (Bld) [Mass/Vol] 11.3 g/dL Low 11.7-15.5 [facility] Comment on above: Performed By: #### E LEC #### [facility] ([id number]) [address] [address] HYPOCHROMIA 2+ Abnormal NONE [facility] Comment on above: Performed By: #### E LEC #### [facility] ([id number]) [address] [address] Lymphocytes (Bld) [#/Vol] 2.6 10*3/uL Normal 1.0-3.5 [facility] Comment on above: Performed By: #### E LEC #### [facility] ([id number]) [address] [address] [place] [address] Lymphocytes/100 WBC (Bld) 16.0 % Normal [facility] Comment on above: Performed By: #### E LEC #### [facility] ([id number]) [address] [place] [address] MCH (RBC) [Entitic mass] 24.8 pg Low 27-34 [facility] Comment on above: Performed By: #### E LEC #### [facility] ([id number]) [address] [place] [address] MCHC (RBC) [Mass/Vol] 32.2 g/dL Normal 32-36 [facility] Comment on above: Performed By: #### E LEC #### [facility] ([id number]) [address] [place] [address] MCV (RBC) [Entitic vol] 77 fL Low 80-100 [facility] Comment on above: Performed By: #### E LEC #### [facility] ([id number]) [address] [place] [address] Monocytes (Bld) [#/Vol] 1.0 10*3/uL High 0-0.9 [facility] Comment on above: Performed By: #### E LEC #### [facility] ([id number]) [address] [place] [address] Monocytes/100 WBC (Bld) 6.0 % Normal [facility] Comment on above: Performed By: #### E LEC #### [facility] ([id number]) [address] [place] [address] MYELOCYTE 3.0 % Normal [facility] Comment on above: Performed By: #### E LEC #### [facility] ([id number]) [address] [place] [address] Neutrophils (Bld) [#/Vol] 12.2 10*3/uL High 1.5-6.6 [facility] Comment on above: Performed By: #### E LEC #### [facility] ([id number]) [address] [place] [address] Platelet mean volume (Bld) [Entitic vol] 6.7 fL Low 7-12 [facility] Comment on above: Performed By: #### E LEC #### [facility] ([id number]) [address] [place] [address] Platelets (Bld) [#/Vol] 493 10*3/uL High 150-450 [facility] Comment on above: Performed By: #### E LEC #### [facility] ([id number]) [address] [place] [address] RBC COUNT 4.57 X10E12/L Normal 3.80-5.20 [facility] Comment on above: Performed By: #### E LEC #### [facility] ([id number]) [address] [place] [address] SEG NEUTROPHIL 74.0 % Normal [facility] Comment on above: Performed By: #### E LEC #### [facility] ([id number]) [address] [place] [address] WBC (Bld) [#/Vol] 16.3 10*3/uL High 4.0-11.0 [facility] Comment on above: Performed By: #### E LEC #### [facility] ([id number]) [address] [place] [address] CK [Catalytic activity/Vol]o n 02-23-2024 CPK <10 Low 24-170 [facility] Comment on above: Performed By: #### E LEC #### [facility] ([id number]) [address] [place] [address] COMPREHENSIVE METABOLIC PANE Harsha 02-23-2024 Albumin [Mass/Vol] 2.9 g/dL Low 3.2-5.3 [facility] Comment on above: Performed By: #### E LEC #### [facility] ([id number]) [address] [place] [address] ALP [Catalytic activity/Vol] 69 U/L Normal 39-130 [facility] Comment on above: Performed By: #### E LEC #### [facility] ([id number]) [address] [place] [address] ALT [Catalytic activity/Vol] 7 U/L Normal 0-31 [facility] Comment on above: Performed By: #### E LEC #### [facility] ([id number]) [address] [place] [address] Anion gap [Moles/Vol] 7 mmol/L Normal 5-15 [facility] Comment on above: Performed By: #### E LEC #### [facility] ([id number]) [address] [place] [address] AST [Catalytic activity/Vol] 11 U/L Normal 0-41 [facility] Comment on above: Performed By: #### E LEC #### [facility] ([id number]) [address] [place] [address] Bilirubin [Mass/Vol] 0.2 mg/dL Low 0.3-1.2 [facility] Comment on above: Performed By: #### E LEC #### [facility] ([id number]) [address] [place] [address] Calcium [Mass/Vol] 9.4 mg/dL Normal 8.5-10.5 [facility] Comment on above: Performed By: #### E LEC #### [facility] ([id number]) [address] [place] [address] Chloride [Moles/Vol] 103 mmol/L Normal 98-109 [facility] Comment on above: Performed By: #### E LEC #### [facility] ([id number]) [address] [place] [address] CO2 [Moles/Vol] 31 mmol/L Normal 22-32 [facility] Comment on above: Performed By: #### E LEC #### [facility] ([id number]) [address] [address] [place] [address] Creatinine [Mass/Vol] 0.97 mg/dL Normal 0.40-1.00 [facility] Comment on above: Result Comment: METH OD TRACEABLE TO IDMS STANDARD Performed By: #### E LEC #### [facility] ([id number]) [address] [address] [place] [address] GFR/1.73 sq M.predicted among non-blacks MDRD (S/P/Bld) [Vol rate/Area] 60 mL/min/{1.73_m2} Normal >59 [facility] Comment on above: Result Comment: Reported eGFR is based on the CKD-EPI 2020 equation that does not use a race coefficient. Performed By: #### E LEC #### [facility] ([id number]) [address] [place] [address] Glucose [Mass/Vol] 86 mg/dL Normal 65-99 [facility] Comment on above: Performed By: #### E LEC #### [facility] ([id number]) [address] [address] [place] [address] Potassium [Moles/Vol] 4.6 mmol/L Normal 3.5-5.0 [facility] Comment on above: Performed By: #### E LEC #### [facility] ([id number]) [address] [place] [address] Protein [Mass/Vol] 6.6 g/dL Normal 6.0-8.0 [facility] Comment on above: Performed By: #### E LEC #### [facility] ([id number]) [address] [place] [address] Sodium [Moles/Vol] 141 mmol/L Normal 134-146 [facility] Comment on above: Performed By: #### E LEC #### [facility] ([id number]) [address] [place] [address] Urea nitrogen [Mass/Vol] 31 mg/dL High 5-27 [facility] Comment on above: Performed By: #### E LEC #### [facility] ([id number]) [address] [place] [address] FL SWALLOW MOTILITY FUNCTION on 02-23-2024 FL [...] León Parikh on 02/23/2024 8:44 AM Normal [facility] MAGNESIUMon 02-23-2024 Magnesium [Mass/Vol] 1.7 mg/dL Low 1.8-2.6 [facility] Comment on above: Performed By: #### E LEC #### [facility] ([id number]) [address] [place] [address] PHOSPHORUSon 02-23-2024 Phosphate [Mass/Vol] 3.8 mg/dL Normal 2.4-4.9 [facility] Comment on above: Performed By: #### E LEC #### [facility] ([id number]) [address], [facility] [address] [place] [address] CBC AND AUTO DIFFon 02-22-20 Erythrocyte distribution width (RBC) [Ratio] 18.6 % High 11.5-15.0 [facility] Comment on above: Performed By: #### E LEC #### [facility] ([id number]) [address] [place] [address] Hematocrit (Bld) [Volume fraction] 34.2 % Low 35-47 [facility] Comment on above: Performed By: #### E LEC #### [facility] ([id number]) [address] [place] [address] Hemoglobin (Bld) [Mass/Vol] 11.0 g/dL Low 11.7-15.5 [facility] Comment on above: Performed By: #### E LEC #### [facility] ([id number]) [address] [place] [address] HYPOCHROMIA 2+ Abnormal NONE [facility] Comment on above: Performed By: #### E LEC #### [facility] ([id number]) [address] [address] [place] [address] Lymphocytes (Bld) [#/Vol] 2.6 10*3/uL Normal 1.0-3.5 [facility] Comment on above: Performed By: #### E LEC #### [facility] ([id number]) [address], [address] [place] [address] Lymphocytes/100 WBC (Bld) 17.0 % Normal [facility] Comment on above: Performed By: #### E LEC #### [facility] ([id number]) [address], [address] [place] [address] MCH (RBC) [Entitic mass] 24.5 pg Low 27-34 [facility] Comment on above: Performed By: #### E LEC #### [facility] ([id number]) [address], [address] [place] [address] MCHC (RBC) [Mass/Vol] 32.0 g/dL Normal 32-36 [facility] Comment on above: Performed By: #### E LEC #### [facility] ([id number]) [address], [address] [place] [address] MCV (RBC) [Entitic vol] 76 fL Low 80-100 [facility] Comment on above: Performed By: #### E LEC #### [facility] ([id number]) [address] [place] [address] Monocytes (Bld) [#/Vol] 0.6 10*3/uL Normal 0-0.9 [facility] Comment on above: Performed By: #### E LEC #### [facility] ([id number]) [address], [address] [place] [address] Monocytes/100 WBC (Bld) 4.0 % Normal [facility] Comment on above: Performed By: #### E LEC #### [facility] ([id number]) [address] [place] [address] Neutrophils (Bld) [#/Vol] 12.0 10*3/uL High 1.5-6.6 [facility] Comment on above: Performed By: #### E LEC #### [facility] ([id number]) [address] [place] [address] Platelet mean volume (Bld) [Entitic vol] 6.6 fL Low 7-12 [facility] Comment on above: Performed By: #### E LEC #### [facility] ([id number]) [address] [address] [place] [address] Platelets (Bld) [#/Vol] 444 10*3/uL Normal 150-450 [facility] Comment on above: Performed By: #### E LEC #### [facility] ([id number]) [address] [place] [address] RBC COUNT 4.47 X10E12/L Normal 3.80-5.20 [facility] Comment on above: Performed By: #### E LEC #### [facility] ([id number]) [address], [address] [place] [address] SEG NEUTROPHIL 79.0 % Normal [facility] Comment on above: Performed By: #### E LEC #### [facility] ([id number]) [address], [address] [place] [address] WBC (Bld) [#/Vol] 15.2 10*3/uL High 4.0-11.0 [facility] Comment on above: Performed By: #### E LEC #### [facility] ([id number]) [address], [address] [place] [address] COMPREHENSIVE METABOLIC PANE Harsha 02-22-2024 Albumin [Mass/Vol] 2.9 g/dL Low 3.2-5.3 [facility] Comment on above: Performed By: #### E LEC #### [facility] ([id number]) [address], [address] [place] [address] ALP [Catalytic activity/Vol] 80 U/L Normal 39-130 [facility] Comment on above: Performed By: #### E LEC #### [facility] ([id number]) [address] [place] [address] ALT [Catalytic activity/Vol] 9 U/L Normal 0-31 [facility] Comment on above: Performed By: #### E LEC #### [facility] ([id number]) [address], [address] [place] [address] Anion gap [Moles/Vol] 8 mmol/L Normal 5-15 [facility] Comment on above: Performed By: #### E LEC #### [facility] ([id number]) [address], [address] [place] [address] AST [Catalytic activity/Vol] 12 U/L Normal 0-41 [facility] Comment on above: Performed By: #### E LEC #### [facility] ([id number]) [address], [address] [place] [address] Bilirubin [Mass/Vol] 0.2 mg/dL Low 0.3-1.2 [facility] Comment on above: Performed By: #### E LEC #### [facility] ([id number]) [address] [place] [address] Calcium [Mass/Vol] 9.2 mg/dL Normal 8.5-10.5 [facility] Comment on above: Performed By: #### E LEC #### [facility] ([id number]) [address], [address] [place] [address] Chloride [Moles/Vol] 103 mmol/L Normal 98-109 [facility] Comment on above: Performed By: #### E LEC #### [facility] ([id number]) [address], [address] [place] [address] CO2 [Moles/Vol] 32 mmol/L Normal 22-32 [facility] Comment on above: Performed By: #### E LEC #### [facility] ([id number]) [address], [address] [place] [address] Creatinine [Mass/Vol] 0.94 mg/dL Normal 0.40-1.00 [facility] Comment on above: Result Comment: METH OD TRACEABLE TO IDMS STANDARD Performed By: #### E LEC #### [facility] ([id number]) [address], [address] [place] [address] GFR/1.73 sq M.predicted among non-blacks MDRD (S/P/Bld) [Vol rate/Area] 62 mL/min/{1.73_m2} Normal >59 [facility] Comment on above: Result Comment: Reported eGFR is based on the CKD-EPI 2020 equation that does not use a race coefficient. Performed By: #### E LEC #### [facility] ([id number]) [address], [address] [place] [address] Glucose [Mass/Vol] 128 mg/dL High 65-99 [facility] Comment on above: Performed By: #### E LEC #### [facility] ([id number]) [address] [place] [address] Potassium [Moles/Vol] 4.2 mmol/L Normal 3.5-5.0 [facility] Comment on above: Performed By: #### E LEC #### [facility] ([id number]) [address], [address] [place] [address] Protein [Mass/Vol] 6.9 g/dL Normal 6.0-8.0 [facility] Comment on above: Performed By: #### E LEC #### [facility] ([id number]) [address], [address] [place] [address] Sodium [Moles/Vol] 143 mmol/L Normal 134-146 [facility] Comment on above: Performed By: #### E LEC #### [facility] ([id number]) [address], [address] [place] [address] Urea nitrogen [Mass/Vol] 29 mg/dL High -27 [facility] Comment on above: Performed By: #### E LEC #### [facility] ([id number]) [address], [address] [place] [address] MAGNESIUMon 02-22-2024 Magnesium [Mass/Vol] 2.0 mg/dL Normal 1.8-2.6 [facility] Comment on above: Performed By: #### E LEC #### [facility] ([id number]) [address] [place] [address] PHOSPHORUSon 02-22-2024 Phosphate [Mass/Vol] 3.3 mg/dL Normal 2.4-4.9 [facility] Comment on above: Performed By: #### E LEC #### [facility] ([id number]) [address], [address] [place] [address] C DIFFICILE BY PCRon 024 C. difficile toxin genes ELIZABETH+probe Ql (Stl) TOXIGENIC C DIFF Negative (qualifier value) 027 NAP1 Negative (qualifier value) Normal PRNEG [facility] Comment on above: Performed By: #### E LEC #### [facility] ([id number]) [address] [place] [address] CBC AND AUTO DIFFon 02-21-20 24 ABSOLUTE BASOPHIL 0.0 X10E9/L Normal 0.0-0.2 [facility] Comment on above: Performed By: #### E LEC #### [facility] ([id number]) [address], [address] [place] [address] ABSOLUTE NEUTROPHIL 10.9 X10E9/L High 1.5-6.6 [facility] Comment on above: Performed By: #### E LEC #### [facility] ([id number]) [address] [place] [address] Basophils/100 WBC (Bld) 0.2 % Normal [facility] Comment on above: Performed By: #### E LEC #### [facility] ([id number]) [address] [place] [address] Eosinophils (Bld) [#/Vol] 0.0 10*3/uL Normal 0.0-0.4 [facility] Comment on above: Performed By: #### E LEC #### [facility] ([id number]) [address] [place] [address] Eosinophils/100 WBC (Bld) 0.0 % Normal [facility] Comment on above: Performed By: #### E LEC #### [facility] ([id number]) [address] [place] [address] Erythrocyte distribution width (RBC) [Ratio] 18.0 % High 11.5-15.0 [facility] Comment on above: Performed By: #### E LEC #### [facility] ([id number]) [address] [place] [address] Hematocrit (Bld) [Volume fraction] 32.3 % Low 35-47 [facility] Comment on above: Performed By: #### E LEC #### [facility] ([id number]) [address] [place] [address] Hemoglobin (Bld) [Mass/Vol] 10.5 g/dL Low 11.7-15.5 [facility] Comment on above: Performed By: #### E LEC #### [facility] ([id number]) [address] [place] [address] Lymphocytes (Bld) [#/Vol] 2.1 10*3/uL Normal 1.0-3.5 [facility] Comment on above: Performed By: #### E LEC #### [facility] ([id number]) [address], [address] [place] [address] Lymphocytes/100 WBC (Bld) 14.7 % Normal [facility] Comment on above: Performed By: #### E LEC #### [facility] ([id number]) [address] [place] [address] MCH (RBC) [Entitic mass] 24.6 pg Low 27-34 [facility] Comment on above: Performed By: #### E LEC #### [facility] ([id number]) [address], [address] [place] [address] MCHC (RBC) [Mass/Vol] 32.5 g/dL Normal 32-36 [facility] Comment on above: Performed By: #### E LEC #### [facility] ([id number]) [address], [address] [place] [address] MCV (RBC) [Entitic vol] 76 fL Low 80-100 [facility] Comment on above: Performed By: #### E LEC #### [facility] ([id number]) [address], [address] [place] [address] Monocytes (Bld) [#/Vol] 1.3 10*3/uL High 0-0.9 [facility] Comment on above: Performed By: #### E LEC #### [facility] ([id number]) [address] [place] [address] Monocytes/100 WBC (Bld) 9.2 % Normal [facility] Comment on above: Performed By: #### E LEC #### [facility] ([id number]) [address], [address] [place] [address] Neutrophils/100 WBC (Bld) 75.9 % Normal [facility] Comment on above: Performed By: #### E LEC #### [facility] ([id number]) [address], [address] [place] [address] Platelet mean volume (Bld) [Entitic vol] 6.7 fL Low 7-12 [facility] Comment on above: Performed By: #### E LEC #### [facility] ([id number]) [address] [place] [address] Platelets (Bld) [#/Vol] 448 10*3/uL Normal 150-450 [facility] Comment on above: Performed By: #### E LEC #### [facility] ([id number]) [address] [place] [address] RBC COUNT 4.27 X10E12/L Normal 3.80-5.20 [facility] Comment on above: Performed By: #### E LEC #### [facility] ([id number]) [address], [address] [place] [address] WBC (Bld) [#/Vol] 14.4 10*3/uL High 4.0-11.0 [facility] Comment on above: Performed By: #### E LEC #### [facility] ([id number]) [address], [address] [place] [address] COMPREHENSIVE METABOLIC PANE Harsha 02-21-2024 Albumin [Mass/Vol] 2.9 g/dL Low 3.2-5.3 [facility] Comment on above: Performed By: #### E LEC #### [facility] ([id number]) [address], [address] [place] [address] ALP [Catalytic activity/Vol] 81 U/L Normal 39-130 [facility] Comment on above: Performed By: #### E LEC #### [facility] ([id number]) [address], [address] [place] [address] ALT [Catalytic activity/Vol] 4 U/L Normal 0-31 [facility] Comment on above: Performed By: #### E LEC #### [facility] ([id number]) [address] [place] [address] Anion gap [Moles/Vol] 7 mmol/L Normal 5-15 [facility] Comment on above: Performed By: #### E LEC #### [facility] ([id number]) [address] [place] [address] AST [Catalytic activity/Vol] 9 U/L Normal 0-41 [facility] Comment on above: Performed By: #### E LEC #### [facility] ([id number]) [address] [place] [address] Bilirubin [Mass/Vol] 0.2 mg/dL Low 0.3-1.2 [facility] Comment on above: Performed By: #### E LEC #### [facility] ([id number]) [address] [place] [address] Calcium [Mass/Vol] 8.9 mg/dL Normal 8.5-10.5 [facility] Comment on above: Performed By: #### E LEC #### [facility] ([id number]) [address] [place] [address] Chloride [Moles/Vol] 102 mmol/L Normal 98-109 [facility] Comment on above: Performed By: #### E LEC #### [facility] ([id number]) [address] [place] [address] CO2 [Moles/Vol] 34 mmol/L High 22-32 [facility] Comment on above: Performed By: #### E LEC #### [facility] ([id number]) [address] [place] [address] Creatinine [Mass/Vol] 1.09 mg/dL High 0.40-1.00 [facility] Comment on above: Result Comment: METH OD TRACEABLE TO IDMS STANDARD Performed By: #### E LEC #### [facility] ([id number]) [address] [place] [address] GFR/1.73 sq M.predicted among non-blacks MDRD (S/P/Bld) [Vol rate/Area] 52 mL/min/{1.73_m2} Low >59 [facility] Comment on above: Result Comment: Reported eGFR is based on the CKD-EPI 2020 equation that does not use a race coefficient. Performed By: #### E LEC #### [facility] ([id number]) [address] [place] [address] Glucose [Mass/Vol] 150 mg/dL High 65-99 [facility] Comment on above: Performed By: #### E LEC #### [facility] ([id number]) [address] [place] [address] Potassium [Moles/Vol] 4.0 mmol/L Normal 3.5-5.0 [facility] Comment on above: Performed By: #### E LEC #### [facility] ([id number]) [address] [place] [address] Protein [Mass/Vol] 6.8 g/dL Normal 6.0-8.0 [facility] Comment on above: Performed By: #### E LEC #### [facility] ([id number]) [address] [place] [address] Sodium [Moles/Vol] 143 mmol/L Normal 134-146 [facility] Comment on above: Performed By: #### E LEC #### [facility] ([id number]) [address] [place] [address] Urea nitrogen [Mass/Vol] 25 mg/dL Normal 5-27 [facility] Comment on above: Performed By: #### E LEC #### [facility] ([id number]) [address] [place] [address] GI PANELon 02-21-2024 Gastrointestinal pathogens DNA and [...] SAPOVIRUS Not detected (qualifier value) Normal NDET [facility] Comment on above: Performed By: #### E LEC #### [facility] ([id number]) [address] [place] [address] MAGNESIUMon 02-21-2024 Magnesium [Mass/Vol] 2.4 mg/dL Normal 1.8-2.6 [facility] Comment on above: Performed By: #### E LEC #### [facility] ([id number]) [address] [place] [address] PHOSPHORUSon 02-21-2024 Phosphate [Mass/Vol] 3.7 mg/dL Normal 2.4-4.9 [facility] Comment on above: Performed By: #### E LEC #### [facility] ([id number]) [address] [place] [address] CBC AND AUTO DIFFon 02-20-20 ABSOLUTE BASOPHIL 0.0 X10E9/L Normal 0.0-0.2 [facility] Comment on above: Performed By: #### E LEC #### [facility] ([id number]) [address] [place] [address] ABSOLUTE NEUTROPHIL 10.4 X10E9/L High 1.5-6.6 [facility] Comment on above: Performed By: #### E LEC #### [facility] ([id number]) [address] [place] [address] Basophils/100 WBC (Bld) 0.1 % Normal [facility] Comment on above: Performed By: #### E LEC #### [facility] ([id number]) [address] [place] [address] Eosinophils (Bld) [#/Vol] 0.0 10*3/uL Normal 0.0-0.4 [facility] Comment on above: Performed By: #### E LEC #### [facility] ([id number]) [address] [place] [address] Eosinophils/100 WBC (Bld) 0.0 % Normal [facility] Comment on above: Performed By: #### E LEC #### [facility] ([id number]) [address] [place] [address] Erythrocyte distribution width (RBC) [Ratio] 18.1 % High 11.5-15.0 [facility] Comment on above: Performed By: #### E LEC #### [facility] ([id number]) [address] [place] [address] Hematocrit (Bld) [Volume fraction] 33.6 % Low 35-47 [facility] Comment on above: Performed By: #### E LEC #### [facility] ([id number]) [address] [place] [address] Hemoglobin (Bld) [Mass/Vol] 11.2 g/dL Low 11.7-15.5 [facility] Comment on above: Performed By: #### E LEC #### [facility] ([id number]) [address] [place] [address] Lymphocytes (Bld) [#/Vol] 1.3 10*3/uL Normal 1.0-3.5 [facility] Comment on above: Performed By: #### E LEC #### [facility] ([id number]) [address] [place] [address] Lymphocytes/100 WBC (Bld) 10.6 % Normal [facility] Comment on above: Performed By: #### E LEC #### [facility] ([id number]) [address] [place] [address] MCH (RBC) [Entitic mass] 25.1 pg Low 27-34 [facility] Comment on above: Performed By: #### E LEC #### [facility] ([id number]) [address] [place] [address] MCHC (RBC) [Mass/Vol] 33.3 g/dL Normal 32-36 [facility] Comment on above: Performed By: #### E LEC #### [facility] ([id number]) [address] [place] [address] MCV (RBC) [Entitic vol] 76 fL Low 80-100 [facility] Comment on above: Performed By: #### E LEC #### [facility] ([id number]) [address] [place] [address] Monocytes (Bld) [#/Vol] 0.5 10*3/uL Normal 0-0.9 [facility] Comment on above: Performed By: #### E LEC #### [facility] ([id number]) [address] [place] [address] Monocytes/100 WBC (Bld) 3.7 % Normal [facility] Comment on above: Performed By: #### E LEC #### [facility] ([id number]) [address] [place] [address] Neutrophils/100 WBC (Bld) 85.6 % Normal [facility] Comment on above: Performed By: #### E LEC #### [facility] ([id number]) [address] [place] [address] Platelet mean volume (Bld) [Entitic vol] 6.9 fL Low 7-12 [facility] Comment on above: Performed By: #### E LEC #### [facility] ([id number]) [address] [place] [address] Platelets (Bld) [#/Vol] 425 10*3/uL Normal 150-450 [facility] Comment on above: Performed By: #### E LEC #### [facility] ([id number]) [address] [place] [address] RBC COUNT 4.45 X10E12/L Normal 3.80-5.20 [facility] Comment on above: Performed By: #### E LEC #### [facility] ([id number]) [address] [place] [address] WBC (Bld) [#/Vol] 12.1 10*3/uL High 4.0-11.0 [facility] Comment on above: Performed By: #### E LEC #### [facility] ([id number]) [address] [place] [address] COMPREHENSIVE METABOLIC PANE Harsha 02-20-2024 Albumin [Mass/Vol] 3.0 g/dL Low 3.2-5.3 [facility] Comment on above: Performed By: #### E LEC #### [facility] ([id number]) [address] [place] [address] ALP [Catalytic activity/Vol] 81 U/L Normal 39-130 [facility] Comment on above: Performed By: #### E LEC #### [facility] ([id number]) [address] [place] [address] ALT [Catalytic activity/Vol] U/L Normal 0-31 [facility] Comment on above: Performed By: #### E LEC #### [facility] ([id number]) [address] [place] [address] Anion gap [Moles/Vol] 10 mmol/L Normal 5-15 [facility] Comment on above: Performed By: #### E LEC #### [facility] ([id number]) [address] [place] [address] AST [Catalytic activity/Vol] 9 U/L Normal 0-41 [facility] Comment on above: Performed By: #### E LEC #### [facility] ([id number]) [address] [place] [address] Bilirubin [Mass/Vol] 0.2 mg/dL Low 0.3-1.2 [facility] Comment on above: Performed By: #### E LEC #### [facility] ([id number]) [address] [place] [address] Calcium [Mass/Vol] 9.1 mg/dL Normal 8.5-10.5 [facility] Comment on above: Performed By: #### E LEC #### [facility] ([id number]) [address] [place] [address] Chloride [Moles/Vol] 97 mmol/L Low 98-109 [facility] Comment on above: Performed By: #### E LEC #### [facility] ([id number]) [address] [place] [address] CO2 [Moles/Vol] 33 mmol/L High 22-32 [facility] Comment on above: Performed By: #### E LEC #### [facility] ([id number]) [address] [place] [address] Creatinine [Mass/Vol] 1.16 mg/dL High 0.40-1.00 [facility] Comment on above: Result Comment: METH OD TRACEABLE TO IDMS STANDARD Performed By: #### E LEC #### [facility] ([id number]) [address] [place] [address] GFR/1.73 sq M.predicted among non-blacks MDRD (S/P/Bld) [Vol rate/Area] 48 mL/min/{1.73_m2} Low >59 [facility] Comment on above: Result Comment: Reported eGFR is based on the CKD-EPI 2020 equation that does not use a race coefficient. Performed By: #### E LEC #### [facility] ([id number]) [address] [place] [address] Glucose [Mass/Vol] 171 mg/dL High 65-99 [facility] Comment on above: Performed By: #### E LEC #### [facility] ([id number]) [address] [place] [address] Potassium [Moles/Vol] 3.6 mmol/L Normal 3.5-5.0 [facility] Comment on above: Performed By: #### E LEC #### [facility] ([id number]) [address] [place] [address] Protein [Mass/Vol] 7.1 g/dL Normal 6.0-8.0 [facility] Comment on above: Performed By: #### E LEC #### [facility] ([id number]) [address] [place] [address] Sodium [Moles/Vol] 140 mmol/L Normal 134-146 [facility] Comment on above: Performed By: #### E LEC #### [facility] ([id number]) [address] [place] [address] Urea nitrogen [Mass/Vol] 16 mg/dL Normal 5-27 [facility] Comment on above: Performed By: #### E LEC #### [facility] ([id number]) [address] [place] [address] MAGNESIUMon 02-20-2024 Magnesium [Mass/Vol] 2.8 mg/dL High 1.8-2.6 [facility] Comment on above: Performed By: #### E LEC #### [facility] ([id number]) [address] [place] [address] Magnesium [Mass/Vol] 1.5 mg/dL Low 1.8-2.6 [facility] Comment on above: Performed By: #### E LEC #### [facility] ([id number]) [address] [place] [address] PHOSPHORUSon 02-20-2024 Phosphate [Mass/Vol] 3.6 mg/dL Normal 2.4-4.9 [facility] Comment on above: Performed By: #### E LEC #### [facility] ([id number]) [address] [place] [address] POTASSIUMon 02-20-2024 Potassium [Moles/Vol] 4.1 mmol/L Normal 3.5-5.0 [facility] Comment on above: Performed By: #### E LEC #### [facility] ([id number]) [address] [place] [address] BASIC METABOLIC PANLon 02-18 Anion gap [Moles/Vol] 10 mmol/L Normal 5-15 [facility] Comment on above: Performed By: #### C SRINI, BMP, , 2776-10 #### [facility] ([id number]) [address], [address] [place] [address] Calcium [Mass/Vol] 9.5 mg/dL Normal 8.5-10.5 [facility] Comment on above: Performed By: #### C SRINI, BMP, , 2776-10 #### [facility] ([id number]) [address], [address] [place] [address] Chloride [Moles/Vol] 96 mmol/L Low 98-109 [facility] Comment on above: Performed By: #### Timmy MILLIGAN, BMP, , 2776-10 #### [facility] ([id number]) [address], [address] [place] [address] CO2 [Moles/Vol] 32 mmol/L Normal 22-32 [facility] Comment on above: Performed By: #### Timmy MILLIGAN, BMP, , 2776-10 #### [facility] ([id number]) [address], [address] [place] [address] Creatinine [Mass/Vol] 1.10 mg/dL High 0.40-1.00 [facility] Comment on above: Result Comment: METH OD TRACEABLE TO IDMS STANDARD Performed By: #### C SRINI, BMP, , 2776-10 #### [facility] ([id number]) [address], [address] [place] [address] GFR/1.73 sq M.predicted among non-blacks MDRD (S/P/Bld) [Vol rate/Area] 51 mL/min/{1.73_m2} Low >59 [facility] Comment on above: Result Comment: Reported eGFR is based on the CKD-EPI 2020 equation that does not use a race coefficient. Performed By: #### C SRINI, BMP, , 2776-10 #### [facility] ([id number]) [address], [address] [place] [address] Glucose [Mass/Vol] 131 mg/dL High 65-99 [facility] Comment on above: Performed By: #### C BC, BMP, , 2776-10 #### [facility] ([id number]) [address], [facility] [address] [place] [address] Potassium [Moles/Vol] 3.9 mmol/L Normal 3.5-5.0 [facility] Comment on above: Performed By: #### Timmy MILLIGAN, SANTOSH, , 2776-10 #### [facility] ([id number]) [address], [facility] [address] [place] [address] Sodium [Moles/Vol] 138 mmol/L Normal 134-146 [facility] Comment on above: Performed By: #### C SRINI, BMP, , 2776-10 #### [facility] ([id number]) [address], [facility] [address] [place] [address] Urea nitrogen [Mass/Vol] 11 mg/dL Normal 5-27 [facility] Comment on above: Performed By: #### Timmy MILLIGAN, BMP, , 2776-10 #### [facility] ([id number]) [address], [address] [place] [address] BLOOD CULTUREon 02-19-2024 Bacteria identified Aer cx Nom (Bld) SPECIMEN NOTES ONLY ANAEROBIC BOTTLE SENT CULTURE RESULTS NO GROWTH 5 DAYS Normal [facility] Comment on above: Performed By: #### E LEC #### [facility] ([id number]) [address], [address] [place] [address] Bacteria identified Aer cx Nom (Bld) CULTURE RESULTS NO GROWTH 5 DAYS Normal [facility] CBC AND AUTO DIFFon 02-18- 24 ABSOLUTE BASOPHIL 0.0 X10E9/L Normal 0.0-0.2 [facility] Comment on above: Performed By: #### SANTOSH SALEEM, , 2776-10 #### [facility] ([id number]) [address], [address] [place] [address] ABSOLUTE NEUTROPHIL 10.1 X10E9/L High 1.5-6.6 [facility] Comment on above: Performed By: #### Timmy MILLIGAN [facility], , 2776-10 #### [facility] ([id number]) [address], [address] [place] [address] Basophils/100 WBC (Bld) 0.3 % Normal [facility] Comment on above: Performed By: #### SANTOSH SALEEM, , 2776-10 #### [facility] ([id number]) [address], [address] [place] [address] Eosinophils (Bld) [#/Vol] 0.2 10*3/uL Normal 0.0-0.4 [facility] Comment on above: Performed By: #### SANTOSH SALEEM, , 2776-10 #### [facility] ([id number]) [address], [address] [place] [address] Eosinophils/100 WBC (Bld) 1.3 % Normal [facility] Comment on above: Performed By: #### SANTOSH SALEEM, , 2776-10 #### [facility] ([id number]) [address], [address] [place] [address] Erythrocyte distribution width (RBC) [Ratio] 18.1 % High 11.5-15.0 [facility] Comment on above: Performed By: #### SANTOSH SALEEM, , 2776-10 #### [facility] ([id number]) [address], [address] [place] [address] Hematocrit (Bld) [Volume fraction] 37.8 % Normal 35-47 [facility] Comment on above: Performed By: #### Timmy MILLIGAN, BMP, , 2776-10 #### [facility] ([id number]) [address], [facility] [address] [place] [address] Hemoglobin (Bld) [Mass/Vol] 12.1 g/dL Normal 11.7-15.5 [facility] Comment on above: Performed By: #### Timmy MILLIGAN, SANTOSH, , 2776-10 #### [facility] ([id number]) [address], [facility] [address] [place] [address] Lymphocytes (Bld) [#/Vol] 2.5 10*3/uL Normal 1.0-3.5 [facility] Comment on above: Performed By: #### Timmy MILLIGAN, BMP, , 2776-10 #### [facility] ([id number]) [address], [facility] [address] [place] [address] Lymphocytes/100 WBC (Bld) 17.9 % Normal [facility] Comment on above: Performed By: #### SANTOSH SALEEM, , 2776-10 #### [facility] ([id number]) [address], [address] [place] [address] MCH (RBC) [Entitic mass] 24.4 pg Low 27-34 [facility] Comment on above: Performed By: #### Timmy MILLIGAN, BMP, , 2776-10 #### [facility] ([id number]) [address] [place] [address] MCHC (RBC) [Mass/Vol] 32.0 g/dL Normal 32-36 [facility] Comment on above: Performed By: #### Timmy BC, BMP, , 2776-10 #### [facility] ([id number]) [address], [address] [place] [address] MCV (RBC) [Entitic vol] 76 fL Low 80-100 [facility] Comment on above: Performed By: #### SANTOSH SALEEM, , 2776-10 #### [facility] ([id number]) [address], [address] [place] [address] Monocytes (Bld) [#/Vol] 1.4 10*3/uL High 0-0.9 [facility] Comment on above: Performed By: #### Timmy MILLIGAN, [facility], , 2776-10 #### [facility] ([id number]) [address] [place] [address] Monocytes/100 WBC (Bld) 9.9 % Normal [facility] Comment on above: Performed By: #### Timmy MILLIGAN [facility], , 2776-10 #### [facility] ([id number]) [address], [address] [place] [address] Neutrophils/100 WBC (Bld) 70.6 % Normal [facility] Comment on above: Performed By: #### SANTOSH SALEEM, , 2776-10 #### [facility] ([id number]) [address] [place] [address] Platelet mean volume (Bld) [Entitic vol] 6.9 fL Low 7-12 [facility] Comment on above: Performed By: #### Timmy MILLIGAN, SANTOSH, , 2776-10 #### [facility] ([id number]) [address], [address] [place] [address] Platelets (Bld) [#/Vol] 485 10*3/uL High 150-450 [facility] Comment on above: Performed By: #### SANTOSH SALEEM, 2776-10 #### [facility] ([id number]) [address], [address] [place] [address] RBC COUNT 4.95 X10E12/L Normal 3.80-5.20 [facility] Comment on above: Performed By: #### C SRINI, SANTOSH, , 2776-10 #### [facility] ([id number]) [address] [place] [address] WBC (Bld) [#/Vol] 14.2 10*3/uL High 4.0-11.0 [facility] Comment on above: Performed By: #### C SRINI, [facility], , 2776-10 #### [facility] ([id number]) [address], [address] [place] [address] CT ABDOMEN AND PELVIS W CONT on [...] Lehman MD on 02/19/2024 4:54 PM Normal [facility] LEGIONELLA URINE AGon 2023 L. pneumophila Ag IA Ql (U) LEGIONELLA URINE AG Negative (qualifier value) NEGATIVE FOR L.PNEUMOPHILA SEROGROUP 1 ANTIGEN Normal [facility] Comment on above: Performed By: #### E LEC #### [facility] ([id number]) [address], [address] [place] [address] Lactate (P timmy) [Moles/Vol]o n 02-19-2024 LACTATE W/REFLEX 1.7 mmol/L Normal 0.4-2.[address] [facility] Comment on above: Result Comment: Result did not trigger repeat Lactate, re-order if needed. Performed By: #### C BC, BMP, 877[address]-3, 2777-1 #### [facility] ([id number]) [address] [place] [address] MRSA PCR NASALon 02-19-2024 MRSA DNA ELIZABETH+probe Ql (Unsp spec) Negative Normal NEG [facility] Comment on above: Performed By: #### E LEC #### [facility] ([id number]) [address], [address] [place] [address] Natriuretic peptide B [Mass/ Vol]on 02-19-2024 Natriuretic peptide B (Bld) [Mass/Vol] 38 pg/mL Normal <100.0 [facility] Comment on above: Performed By: #### C SANTOSH MILLIGAN, , 1 #### [facility] ([id number]) [address], [address] [place] [address] Nuclear Ab IA Ql (S)on 02-18 BRNADON Screen w/reflex Negative Normal NEG [facility] Comment on above: Result Comment: Testing performed using multiplex flow immunoassay. Eleven different antigens associated with systemic autoimmune diseases (dsDNA,Sm,Sm/DIRECTOR DRUG,DIRECTOR DRUG,Chromatin, SSA,SSB,Dacia-1,Scl70,Ribo P,Centromere B) are included in this screening test. Performed By: #### E LEC #### [facility] ([id number]) [address], [address] [place] [address] PROTIME AND INRon 02-19-2024 INR Coag (PPP) [Relative time] 1.1 {INR} Normal 0.8-1.1 [facility] Comment on above: Performed By: #### SANTOSH SALEEM, , 1 #### [facility] ([id number]) [address], [address] [place] [address] PT Coag (PPP) [Time] 13.1 s Normal 9.8-13.2 [facility] Comment on above: Performed By: #### SANTOSH SALEEM, , 277[address] #### [facility] ([id number]) [address], [address] [place] [address] Procalcitonin IA [Mass/Vol]o n 02-19-2024 PROCALCITONIN 0.10 ng/mL High <0.05 [facility] Comment on above: Result Comment: NOTE <0.50 ng/mL - Low risk of severe sepsis and/or septic shock. <2.00 ng/mL - Recommend retesting within 6-24 hours. >2.00 ng/mL - High risk of sepsis and/or septic shock. Performed By: #### E LEC #### [facility] ([id number]) [address], [address] [place] [address] Rheumatoid factor Nephelomet ry Qn (S)on 02-19-2024 RHEUMATOID FACTOR <10 Normal <20 [facility] Comment on above: Performed By: #### E LEC #### [facility] ([id number]) [address], [address] [place] [address] S PNEUMONIAE AG Uon 02-19-20 S. pneumoniae Ag Ql (U) Negative Normal NEG [facility] Comment on above: Performed By: #### E LEC #### [facility] ([id number]) [address], [address] [place] [address] SARS/FLU A+B/RSV by NAAT/Mol ecularon 02-19-2024 SARS/FLU [...] operators who are performing tests using either [employer] or [employer] systems and is limited to laboratories that [...] repeat. Fact Sheet for Healthcare Providers: https://www.fda.gov/media/ 401158/download Fact Sheet for Patients: https://www.fda.gov/media/ 634025/download Normal [facility] Comment on above: Performed By: #### E LEC #### [facility] ([id number]) [address] [place] [address] STREP PCR THROATon S. pyogenes DNA ELIZABETH+probe Nom (Unsp spec) STREP PCR THROAT Negative (qualifier value) Streptococcus Group A NOT detected by nucleic acid amplification. Normal [facility] Comment on above: Performed By: #### E LEC #### [facility] ([id number]) [address] [place] [address] Troponin I.cardiac High sens itivity method [Mass/Vol]on 02-19-2024 1 HOUR TROP I, HIGH SENSITIVITY 4 ng/L Normal <16 [facility] Comment on above: Performed By: #### E LEC #### [facility] ([id number]) [address] [place] [address], [address] [address] TROPONIN I, HIGH SENSITIVITY 4 ng/L Normal <16 [facility] Comment on above: Performed By: #### C BC, BMP, 31941-2, 2777-1 #### [facility] ([id number]) [address], [address] [place] [address] URINE CULTUREon 02-19-2024 Bacteria identified Cx Nom [...] Interpretation NATALIA Status DAPTOMYCIN S F Susceptible [facility] Comment on above: Performed By: #### E LEC #### [facility] ([id number]) [address] [place] [address] URN MACROSCOPIC NURon 2023 BILIRUBIN OLVIN Negative Normal [facility] Comment on above: Performed By: #### E LEC #### [facility] ([id number]) [address], [address] [place] [address] BLOOD/HGB OLVIN Small Abnormal NEG [facility] Comment on above: Performed By: #### E LEC #### [facility] ([id number]) [address], [address] [place] [address] GLUCOSE OLVIN Negative Normal NEG [facility] Comment on above: Performed By: #### E LEC #### [facility] ([id number]) [address], [address] [place] [address] KETONES OLVIN Negative Normal NEG [facility] Comment on above: Performed By: #### E LEC #### [facility] ([id number]) [address] [place] [address] LEUKOCYTE ESTERASE OLVIN Small Abnormal NEG [facility] Comment on above: Performed By: #### E LEC #### [facility] ([id number]) [address] [place] [address] NITRITE OLVIN Negative Normal NEG [facility] Comment on above: Performed By: #### E LEC #### [facility] ([id number]) [address] [place] [address] PH OLVIN 5.5 Normal 5.0-8.5 [facility] Comment on above: Performed By: #### E LEC #### [facility] ([id number]) [address] [place] [address] PROTEIN OLVIN Negative Normal NEG [facility] Comment on above: Performed By: #### E LEC #### [facility] ([id number]) [address] [place] [address] SPECIFIC GRAVITY OLVIN 1.015 Normal 1.003-1 .03 5 [facility] Comment on above: Performed By: #### E LEC #### [facility] ([id number]) [address] [place] [address] UROBILINOGEN OLVIN 0.2 eu/dL Normal <1.[address] [facility] Comment on above: Performed By: #### E LEC #### [facility] ([id number]) [address] [place] [address] VENOUS BLOOD GASon 4 GUNJAN'S TEST Normal [facility] Comment on above: Performed By: #### E LEC #### [facility] ([id number]) [address] [place] [address] Base excess Calc (Bld) [Moles/Vol] 10.0 mmol/L High 0.0-2.0 [facility] Comment on above: Performed By: #### E LEC #### [facility] ([id number]) [address] [place] [address] Body temperature 98.6 [degF] Normal 37.0 [facility] Comment on above: Performed By: #### E LEC #### [facility] ([id number]) [address] [place] [address] HCO3 (Bld) [Moles/Vol] 34.7 mmol/L High 20.0-24.0 [facility] Comment on above: Performed By: #### E LEC #### [facility] ([id number]) [address] [place] [address] INSP. O2 CONC. 30 % Normal [facility] Comment on above: Performed By: #### E LEC #### [facility] ([id number]) [address] [place] [address] Oxygen saturation in Blood 89.0 % Normal >80.0 [facility] Comment on above: Performed By: #### E LEC #### [facility] ([id number]) [address] [place] [address] OXYGEN SOURCE NC Normal [facility] Comment on above: Performed By: #### E LEC #### [facility] ([id number]) [address] [place] [address] PCO2, VENOUS 46.3 MMHG Normal 35-50 [facility] Comment on above: Performed By: #### E LEC #### [facility] ([id number]) [address] [place] [address] PH, VENOUS 7.482 High 7.320-7.42 0 [facility] Comment on above: Performed By: #### E LEC #### [facility] ([id number]) [address] [place] [address] PO2, VENOUS 53 MMHG High 30-50 [facility] Comment on above: Performed By: #### E LEC #### [facility] ([id number]) [address] [place] [address] SAMPLE SITE N/A Normal [facility] Comment on above: Performed By: #### E LEC #### [facility] ([id number]) [address] [place] [address] SAMPLE TYPE VENOUS Normal [facility] Comment on above: Performed By: #### E LEC #### [facility] ([id number]) [address] [place] [address] XR CHEST 1 VWon 02-19-2024 XR CHEST [...] Hayes MD on 02/19/2024 3:46 PM Normal [facility] aPTT Coag (PPP) [Time]on aPTT Coag (Bld) [Time] 32 s Normal 26-37 [facility] Comment on above: Performed By: #### C BC, BMP, 89256-5, 2777-1 #### [facility] ([id number]) [address] [place] [address] Basic Metabolic Panelon 01-27 Creatinine Clr Calc Pharmacy 50.21 Normal [facility] Comment on above: Result Comment: PERF ORMED BY: [facility] [address] [place] [address] PATHOLOGIST D[employer]ING SERVICE WORKER JORGE MURRELL M.D. Performed By: #### E SR, CBC, CMP, BNP #### [place] [address] [place] GFR/1.73 sq M.predicted MDRD (S/P/Bld) [Vol rate/Area] mL/min/{1.73_m2} Normal [facility] Comment on above: Performed By: #### E SR, CBC, CMP, BNP #### [place] [address] [place] Calcium [Mass/volume] in Ser um or PlasmaOrdered By: Lucho Grullon on 02-17-2024 Calcium [Mass/Vol] 8.5 mg/dL Low 8.6-10.3 [facility] Comment on above: Performed By: #### E SR, CBC, CMP, BNP #### [place] [address] [place] Carbon dioxide, total [Moles /volume] in Serum or PlasmaOrdered By: Lucho Grullon on 02-17-2024 CO2 [Moles/Vol] 29.4 mmol/L Normal 21.0-31.0 [facility] Comment on above: Performed By: #### E SR, CBC, CMP, BNP #### [place] [address] [place] Chloride [Moles/volume] in S kaveh or PlasmaOrdered By: Lucho Cappssosylvia on 02-17-2024 Chloride [Moles/Vol] 103 mmol/L Normal 98-107 [facility] Comment on above: Performed By: #### E SR, CBC, CMP, BNP #### [place] [address] [place] Creatinine [Mass/volume] in Serum or PlasmaOrdered By: Lucho Wassosylvia on 02-17-2024 Creatinine [Mass/Vol] 0.90 mg/dL Normal 0.60-1.20 [facility] Comment on above: Performed By: #### E SR, CBC, CMP, BNP #### [address] [place] [address] [place] Erythrocyte distribution wid th [Ratio] by Automated countOrdered By: Lucho Grullon on 02-17-2024 Erythrocyte distribution width (RBC) [Ratio] 18.2 % High 11.9-15.3 [facility] Comment on above: Performed By: #### E SR, CBC, CMP, BNP #### [facility] [address] [place] [address] [place] Erythrocytes [#/volume] in B lood by Automated countOrdered By: Lucho Grullon on 02-17-2024 RBC (Bld) [#/Vol] 4.25 10*6/uL Normal 3.60-5.00 [facility] Comment on above: Performed By: #### E SR, CBC, CMP, BNP #### [facility] [address] Glucose [Mass/volume] in Ser um or PlasmaOrdered By: Lucho Grullon on 02-17-2024 Glucose [Mass/Vol] 85 mg/dL Normal 70-100 [facility] Comment on above: ADA recommended refe rence rangeRandom Glucose Reference Range is dependent on time and content of last meal. Glucose of more than 200 mg/dL in a nonstressed, ambulatory subject supports the diagnosis of Diabetes Mellitus. Result Comment: [place] om Glucose Reference Range is dependent on time and content of last meal. Glucose of more than 200 mg/dL in a nonstressed, ambulatory subject supports the diagnosis of Diabetes Mellitus. ADA recommended reference range Performed By: #### E SR, CBC, CMP, BNP #### [facility] [address] [place] [address] [place] Hematocrit [Volume Fraction] of Blood by Automated countOrdered By: Lucho Grullon on 02-17-2024 Hematocrit (Bld) [Volume fraction] 32.8 % Low 34.0-46.4 [facility] Comment on above: Performed By: #### E SR, CBC, CMP, BNP #### [facility] [address] [place] [address] [place] Hemoglobin [Mass/volume] in BloodOrdered By: Lucho Grullon on 02-17-2024 Hemoglobin (Bld) [Mass/Vol] 10.6 g/dL Low 11.8-15.4 [facility] Comment on above: Performed By: #### E SR, CBC, CMP, BNP #### [facility] [address] Hemogram CBC Without Diffon 02-17-2024 Mean Corpuscular HGB Conc 32.3 g/dL Normal 32.0-35.0 [facility] Comment on above: Performed By: #### E SR, CBC, CMP, BNP #### [facility] [address] WBC (Bld) [#/Vol] 10.9 10*3/uL Normal 3.8-11.6 [facility] Comment on above: Performed By: #### E SR, CBC, CMP, BNP #### [facility] [address] [place] [address] Leukocytes [#/volume] correc juma for nucleated erythrocytes in Blood by Automated counOrdered By: Lucho Grullon on 02-17-2024 WBC corrected for nucl RBC Auto (Bld) [#/Vol] 10.9 10*3/uL 3.8-11.6 [facility] MCH [Entitic mass] by Automa juma countOrdered By: Lucho Grullon on 02-17-2024 MCH (RBC) [Entitic mass] 24.9 pg Normal 24.7-34.3 [facility] Comment on above: Performed By: #### E SR, CBC, CMP, BNP #### [facility] [address] [place] [address] MCHC Auto (RBC) [Mass/Vol]Or dered By: Lucho Grullon on 02-17-2024 MCHC (RBC) [Mass/Vol] 32.3 g/dL 32.0-35.0 [facility] MCV [Entitic volume] by Auto mated countOrdered By: Lucho Grullon on 02-17-2024 MCV (RBC) [Entitic vol] 77.2 fL Low 80-100 [facility] Comment on above: Performed By: #### E SR, CBC, CMP, BNP #### [address] No Panel InformationOrdered By: Juneharini Jaquelinsylvia on 02-17-2024 Estimated GFR (CKD-EPI) > 60.0 mL/Min [facility] Creatinine Clearance (Chem 50.21 [facility] Platelet mean volume [Entiti c volume] in Blood by Automated countOrdered By: Juneharini Jaquelinsylvia on 02-17-2024 Platelet mean volume (Bld) [Entitic vol] 6.9 fL Normal 6.3-10.7 [facility] Comment on above: Result Comment: PERF ORMED BY: [place] [address] PATHOLOGIST DINING SERVICE WORKER JORGE MURRELL M.D. Performed By: #### E SR, CBC, CMP, BNP #### [address] Platelets [#/volume] in Bloo d by Automated countOrdered By: Juneharini Jaquelinsylvia on 02-17-2024 Platelets (Bld) [#/Vol] 370 10*3/uL Normal 150-450 [facility] Comment on above: Performed By: #### E SR, CBC, CMP, BNP #### [address] Potassium [Moles/volume] in Serum or PlasmaOrdered By: Juneharini Génesismariza on 02-17-2024 Potassium [Moles/Vol] 4.2 mmol/L Normal 3.5-5.1 [facility] Comment on above: Performed By: #### E SR, CBC, CMP, BNP #### [address] Serum or plasma anion gap de terminationOrdered By: Juneharini Jaquelinsylvia on 02-17-2024 Anion gap [Moles/Vol] 10.8 mmol/L Normal 6.0-15.0 [facility] Comment on above: Performed By: #### E SR, CBC, CMP, BNP #### [address] Sodium [Moles/volume] in Ser um or PlasmaOrdered By: Juneharini Génesismariza on 02-17-2024 Sodium [Moles/Vol] 139 mmol/L Normal 136-145 [facility] Comment on above: Performed By: #### E SR, CBC, CMP, BNP #### [address] Urea nitrogen [Mass/volume] in Serum or PlasmaOrdered By: Lucho Génesismariza on 02-17-2024 Urea nitrogen [Mass/Vol] 8 mg/dL Normal 7-25 [facility] Comment on above: Performed By: #### E SR, CBC, CMP, BNP #### [address] Aerobic Cultureon 02-16-2024 Aerobic Culture Light Normal Respira tory Kimberly 2 Days Gram Stain Result 3+ White Blood Cells 1+ Epithelial Cells 2+ Gram Positive Cocci 1+ Yeast Like Elements PERFORMED BY: [place] [address] PATHOLOGIST DINING SERVICE WORKER JORGE MURRELL M.D. Normal [facility] Comment on above: Performed By: #### E SR, CBC, CMP, BNP #### [address] Basic Metabolic Panelon 01-27 Anion gap [Moles/Vol] 9.6 mmol/L Normal 6.0-15.0 [facility] Comment on above: Performed By: #### E SR, CBC, CMP, BNP #### [place] [address] [place] Calcium [Mass/Vol] 8.5 mg/dL Low 8.6-10.3 [facility] Comment on above: Performed By: #### E SR, CBC, CMP, BNP #### [address] Chloride [Moles/Vol] 103 mmol/L Normal 98-107 [facility] Comment on above: Performed By: #### E SR, CBC, CMP, BNP #### [place] [address] [place] CO2 [Moles/Vol] 27.3 mmol/L Normal 21.0-31.0 [facility] Comment on above: Performed By: #### E SR, CBC, CMP, BNP #### [address] Creatinine [Mass/Vol] 0.92 mg/dL Normal 0.60-1.20 [facility] Comment on above: Performed By: #### E SR, CBC, CMP, BNP #### [place] [address] [place] Creatinine Clr Calc Pharmacy 47.75 Normal [facility] Comment on above: Result Comment: PERF ORMED BY: [place] [address] PATHOLOGIST DINING SERVICE WORKER JORGE MURRELL M.D. Performed By: #### E SR, CBC, CMP, BNP #### [place] [address] [place] GFR/1.73 sq M.predicted MDRD (S/P/Bld) [Vol rate/Area] mL/min/{1.73_m2} Normal [facility] Comment on above: Performed By: #### E SR, CBC, CMP, BNP #### [address] Glucose [Mass/Vol] 83 mg/dL Normal 70-100 [facility] Comment on above: Result Comment: [place] Glucose Reference Range is dependent on time and content of last meal. Glucose of more than 200 mg/dL in a nonstressed, ambulatory subject supports the diagnosis of Diabetes Mellitus. ADA recommended reference range Performed By: #### E SR, CBC, CMP, BNP #### [place] [address] [place] Potassium [Moles/Vol] 3.9 mmol/L Normal 3.5-5.1 [facility] Comment on above: Performed By: #### E SR, CBC, CMP, BNP #### [place] [address] Sodium [Moles/Vol] 136 mmol/L Normal 136-145 [facility] Comment on above: Performed By: #### E SR, CBC, CMP, BNP #### [address] Urea nitrogen [Mass/Vol] 9 mg/dL Normal 7-25 [facility] Comment on above: Performed By: #### E SR, CBC, CMP, BNP #### [address] Gram stain for investigation of transfusion reactionOrdered By: Lucho Grullon on 02-16-2024 Microscopic observation Gram stain Nom (Unsp spec) 1 Day [facility] [facility] CBC Without Diffon 02-16-2024 Erythrocyte distribution width (RBC) [Ratio] 18.3 % High 11.9-15.3 [facility] Comment on above: Performed By: #### E SR, CBC, CMP, BNP #### [address] Hematocrit (Bld) [Volume fraction] 33.8 % Low 34.0-46.4 [facility] Comment on above: Performed By: #### E SR, CBC, CMP, BNP #### [address] Hemoglobin (Bld) [Mass/Vol] 10.6 g/dL Low 11.8-15.4 [facility] Comment on above: Performed By: #### E SR, CBC, CMP, BNP #### [address] MCH (RBC) [Entitic mass] 24.1 pg Low 24.7-34.3 [facility] Comment on above: Performed By: #### E SR, CBC, CMP, BNP #### [address] MCV (RBC) [Entitic vol] 76.8 fL Low 80-100 [facility] Comment on above: Performed By: #### E SR, CBC, CMP, BNP #### [address] Mean Corpuscular HGB Conc 31.4 g/dL Low 32.0-35.0 [facility] Comment on above: Performed By: #### E SR, CBC, CMP, BNP #### [address] Platelet mean volume (Bld) [Entitic vol] 7.1 fL Normal 6.3-10.7 [facility] Comment on above: Result Comment: PERF ORMED BY: [place] [address] PATHOLOGIST DINING SERVICE WORKER JORGE MURRELL M.D. Performed By: #### E SR, CBC, CMP, BNP #### [address] Platelets (Bld) [#/Vol] 373 10*3/uL Normal 150-450 [facility] Comment on above: Performed By: #### E SR, CBC, CMP, BNP #### [address] RBC (Bld) [#/Vol] 4.41 10*6/uL Normal 3.60-5.00 [facility] Comment on above: Performed By: #### E SR, CBC, CMP, BNP #### [address] WBC (Bld) [#/Vol] 11.1 10*3/uL Normal 3.8-11.6 [facility] Comment on above: Performed By: #### E SR, CBC, CMP, BNP #### [address] Basic Metabolic Panelon 04-2 0-2023 Anion gap [Moles/Vol] 9.8 mmol/L Normal 6.0-15.0 [facility] Comment on above: Performed By: #### E SR, CBC, CMP, BNP #### [address] Calcium [Mass/Vol] 8.4 mg/dL Low 8.6-10.3 [facility] Comment on above: Performed By: #### E SR, CBC, CMP, BNP #### [facility] [address] [place] [address] [place] Chloride [Moles/Vol] 103 mmol/L Normal 98-107 [facility] Comment on above: Performed By: #### E SR, CBC, CMP, BNP #### [facility] [address] [place] [address] [place] CO2 [Moles/Vol] 28.7 mmol/L Normal 21.0-31.0 [facility] Comment on above: Performed By: #### E SR, CBC, CMP, BNP #### [facility] [address] [place] [address] [place] Creatinine [Mass/Vol] 1.16 mg/dL Normal 0.60-1.20 [facility] Comment on above: Performed By: #### E SR, CBC, CMP, BNP #### [facility] [address] [place] [address] [place] Creatinine Clr Calc Pharmacy 37.75 Normal [facility] Comment on above: Performed By: #### E SR, CBC, CMP, BNP #### [facility] [address] [place] [address] [place] GFR/1.73 sq M.predicted MDRD (S/P/Bld) [Vol rate/Area] 48.257 mL/min/{1.73_m2} Normal [facility] Comment on above: Performed By: #### E SR, CBC, CMP, BNP #### [place] [address] [place] Glucose [Mass/Vol] 79 mg/dL Normal 70-100 [facility] Comment on above: Result Comment: [place] Glucose Reference Range is dependent on time and content of last meal. Glucose of more than 200 mg/dL in a nonstressed, ambulatory subject supports the diagnosis of Diabetes Mellitus. ADA recommended reference range Performed By: #### E SR, CBC, CMP, BNP #### [facility] [address] [place] [address] [place] Potassium [Moles/Vol] 3.5 mmol/L Normal 3.5-5.1 [facility] Comment on above: Performed By: #### E SR, CBC, CMP, BNP #### [address] Sodium [Moles/Vol] 138 mmol/L Normal 136-145 [facility] Comment on above: Performed By: #### E SR, CBC, CMP, BNP #### [address] Urea nitrogen [Mass/Vol] 14 mg/dL Normal 7-25 [facility] Comment on above: Performed By: #### E SR, CBC, CMP, BNP #### [address] Clostridioides difficile tox in B tcdB gene [Presence] in Stool by ELIZABETH with probe deteOrdered By: Lucho Grullon on 02-15-2024 C. difficile toxin B tcdB gene ELIZABETH+probe Ql (Stl) Negative Negative [facility] Comment on above: Testing performed by RT-PCR Clostridium Difficileon 01-27 Clostridium Difficile Negative Normal Negative [facility] Comment on above: Order Comment: > or = to 3 loose/watery stools in the last 24 HRS? Y Is patient on promotility agents or tube feeding? N Result Comment: Test ing performed by RT-PCR PERFORMED BY: [place] [address] PATHOLOGIST DINING SERVICE WORKER JORGE MURRELL M.D. Performed By: #### E SR, CBC, CMP, BNP #### [address] Hemogram CBC Without Diffon 02-15-2024 Erythrocyte distribution width (RBC) [Ratio] 18.2 % High 11.9-15.3 [facility] Comment on above: Performed By: #### E SR, CBC, CMP, BNP #### [address] Hematocrit (Bld) [Volume fraction] 34.6 % Normal 34.0-46.4 [facility] Comment on above: Performed By: #### E SR, CBC, CMP, BNP #### [address] Hemoglobin (Bld) [Mass/Vol] 10.9 g/dL Low 11.8-15.4 [facility] Comment on above: Performed By: #### E SR, CBC, CMP, BNP #### [address] MCH (RBC) [Entitic mass] 24.2 pg Low 24.7-34.3 [facility] Comment on above: Performed By: #### E SR, CBC, CMP, BNP #### [address] MCV (RBC) [Entitic vol] 77.1 fL Low 80-100 [facility] Comment on above: Performed By: #### E SR, CBC, CMP, BNP #### [address] Mean Corpuscular HGB Conc 31.4 g/dL Low 32.0-35.0 [facility] Comment on above: Performed By: #### E SR, CBC, CMP, BNP #### [address] Platelet mean volume (Bld) [Entitic vol] 7.0 fL Normal 6.3-10.7 [facility] Comment on above: Result Comment: PERF ORMED BY: [place] [address] PATHOLOGIST DINING SERVICE WORKER JORGE MURRELL M.D. Performed By: #### E SR, CBC, CMP, BNP #### [place] [address] [place] Platelets (Bld) [#/Vol] 333 10*3/uL Normal 150-450 [facility] Comment on above: Performed By: #### E SR, CBC, CMP, BNP #### [address] RBC (Bld) [#/Vol] 4.48 10*6/uL Normal 3.60-5.00 [facility] Comment on above: Performed By: #### E SR, CBC, CMP, BNP #### [facility] [address] WBC (Bld) [#/Vol] 10.0 10*3/uL Normal 3.8-11.6 [facility] Comment on above: Performed By: #### E SR, CBC, CMP, BNP #### [place] [address] [place] Lactoferrin, Stool WBCon Lactoferrin, Stool WBC LACTOFERRIN Positive for Fecal Lactoferrin Review patient history for chronic inflammatory conditions and status which can cause positive results unrelated to acute infectious disease. -- Reference range = Negative PERFORMED BY: [place] [address] PATHOLOGIST DINING SERVICE WORKER JORGE MURRELL M.D. Normal [facility] Comment on above: Performed By: #### E SR, CBC, CMP, BNP #### [address] Magnesium [Mass/volume] in S kaveh or PlasmaOrdered By: Lucho Grullon on 02-15-2024 Magnesium [Mass/Vol] 1.5 mg/dL Low 1.9-2.7 [facility] Comment on above: Result Comment: PERF ORMED BY: [place] [address] PATHOLOGIST DINING SERVICE WORKER JORGE MURRELL M.D. Performed By: #### E SR, CBC, CMP, BNP #### [address] Stool Cultureon 02-15-2024 Stool culture Negative for Shiga T oxin 1 Negative for Shiga Toxin 2 -- A negative Shiga Toxin result may occur if the antigen level in the specimen is below the detection limit of the assay. Stool culture results No Salmonella, Shigella, Campy or E. coli 0157:H7 Isolated PERFORMED BY: [place] [address] PATHOLOGIST DINING SERVICE WORKER JORGE MURRELL M.D. Normal [facility] Comment on above: Performed By: #### E SR, CBC, CMP, BNP #### [facility] [address] Stool bacteria identificatio n by cultureOrdered By: Lucho Grullon on 02-15-2024 Bacteria identified Cx Nom (Stl) [facility] Stool lactoferrin detectionO rdered By: Lucho Grullon on 02-15-2024 Lactoferrin Ql (Stl) [facility] US venous duplex LE RTon US venous duplex LE RT [facility] [place] [address] [place] [address] Ultrasound Report Signed Patient: Gera Perdue MR#: [id number] : 1945 Acct:[id number] Age/Sex: 78 / F ADM Date: 02/14/24 Loc: Room: [address] [place] [address] Type: ADM IN Attending Dr: Lucho Grullon [...] Hilario Angulo MD02/15/2024 11:55 AM Dictation Location: [place] [address] Tech: Elizabeth Garcia Transcribed By: ANA 02/15/24 1155 Dictated By: Hilario Angulo MD 02/15/24 1154 Signed By: 02/15/24 1155 Normal [facility] Alanine aminotransferase [En zymatic activity/volume] in Serum or PlasmaOrdered By: Kadie Jones on 02-14-2024 ALT [Catalytic activity/Vol] 5 U/L Low 7-52 [facility] Comment on above: Performed By: #### S CAN CBC, LIPASE, CMP, HS TROP, MG, NORMA #### [facility] [address] [place] [address] [place] Albumin [Mass/volume] in Ser um or Plasma by Bromocresol green (BCG) dye binding methoOrdered By: Kadie Jones on 02-14-2024 Albumin BCG dye [Mass/Vol] 3.7 g/dL 3.5-5.7 [facility] Alkaline phosphatase [Enzyma tic activity/volume] in Serum or PlasmaOrdered By: Kadie Jones on 02-14-2024 ALP [Catalytic activity/Vol] 75 U/L Normal 34-104 [facility] Comment on above: Performed By: #### S CAN CBC, LIPASE, CMP, HS TROP, MG, NORMA #### [facility] [address] [place] [address] [place] Amylase [Enzymatic activity/ volume] in Serum or PlasmaOrdered By: Kadie Jones on 02-14-2024 Amylase [Catalytic activity/Vol] 10 U/L Low 29-103 [facility] Comment on above: Performed By: #### S CAN CBC, LIPASE, CMP, HS TROP, MG, NORMA #### [address] Aspartate aminotransferase [ Enzymatic activity/volume] in Serum or PlasmaOrdered By: Kadie Karen on 02-14-2024 AST [Catalytic activity/Vol] 11 U/L Low 13-39 [facility] Comment on above: Performed By: #### S CAN CBC, LIPASE, CMP, HS TROP, MG, NORMA #### [address] Automated basophil %Ordered By: Kadie Abhilashimore on 02-14-2024 Basophils/100 WBC (Bld) 0.9 % Normal . [facility] Comment on above: Performed By: #### S CAN CBC, LIPASE, CMP, HS TROP, MG, NORMA #### [address] Automated basophil countOrde red By: Kadieruslan Hunglamonte on 02-14-2024 Basophils (Bld) [#/Vol] 0.1 10*3/uL Normal 0.0-0.2 [facility] Comment on above: Result Comment: PERF ORMED BY: [place] [address] PATHOLOGIST DINING SERVICE WORKER JORGE MURRELL M.D. Performed By: #### S CAN CBC, LIPASE, CMP, HS TROP, MG, NORMA #### [address] Automated blood monocyte cou ntOrdered By: Kadie Karen on 02-14-2024 Monocytes (Bld) [#/Vol] 1.7 10*3/uL High 0.0-0.8 [facility] Comment on above: Performed By: #### S CAN CBC, LIPASE, CMP, HS TROP, MG, NORMA #### [address] Automated eosinophil %Ordere d By: Kadie Bullimore on 02-14-2024 Eosinophils/100 WBC (Bld) 0.4 % Normal . [facility] Comment on above: Performed By: #### S CAN CBC, LIPASE, CMP, HS TROP, MG, NORMA #### [address] Automated eosinophil countOr dered By: Kadie Karen on 02-14-2024 Eosinophils (Bld) [#/Vol] 0.0 10*3/uL Normal 0.0-0.45 [facility] Comment on above: Performed By: #### S CAN CBC, LIPASE, CMP, HS TROP, MG, NORMA #### [address] Automated erythrocytes count in urine sediment (number/area)Ordered By: Kadie Jones on 02-14-2024 RBC Auto (Urine sed) [#/Area] 0-1 [HPF] 0-4 [facility] Automated leukocytes count i n urine sediment (number/area)Ordered By: Kadie Hustonore on 02-14-2024 WBC Auto (Urine sed) [#/Area] 50-100 [HPF] 0-4 [facility] Automated monocyte %Ordered By: Kadie Jones on 02-14-2024 Monocytes/100 WBC (Bld) 12.3 % Normal . [facility] Comment on above: Performed By: #### S CAN CBC, LIPASE, CMP, HS TROP, MG, NORMA #### [address] Automated neutrophil %Ordere d By: Kadie Jones on 02-14-2024 Neutrophils/100 WBC (Bld) 62.7 % Normal . [facility] Comment on above: Performed By: #### S CAN CBC, LIPASE, CMP, HS TROP, MG, NORMA #### [address] Automated urine color determ inationOrdered By: Kadie Jones on 02-14-2024 Color (U) Dark yellow Critically abnormal Yellow [facility] Comment on above: Order Comment: Name Collection Type:: Straight Catheter Performed By: #### E SR, CBC, CMP, BNP #### [address] BNP ser/plasOrdered By: Bianca Jones on 02-14-2024 Natriuretic peptide B (Bld) [Mass/Vol] 29.0 pg/mL Normal 5-100 [facility] Comment on above: Result Comment: PERF ORMED BY: [place] [address] PATHOLOGIST DINING SERVICE WORKER JORGE MURRELL M.D. Performed By: #### E SR, CBC, CMP, BNP #### [address] Bilirubin Test strip Ql (U)O rdered By: Kadie Jones on 02-14-2024 Bilirubin Ql (U) Negative Negative [facility] Bilirubin.total [Mass/volume ] in Serum or PlasmaOrdered By: Kadie Jones on 02-14-2024 Bilirubin [Mass/Vol] 0.5 mg/dL Normal 0.3-1.0 [facility] Comment on above: Performed By: #### S CAN CBC, LIPASE, CMP, HS TROP, MG, NORMA #### [address] Blood Cultureon 02-14-2024 Bacteria identified Cx Nom (Bld) NO GROWTH 5 DAYS PERFORMED BY: [place] [address] PATHOLOGIST DINING SERVICE WORKER JORGE MURRELL M.D. Normal [facility] Comment on above: Performed By: #### E SR, CBC, CMP, BNP #### [address] Bacteria identified Cx Nom (Bld) NO GROWTH 5 DAYS PERFORMED BY: [place] [address] PATHOLOGIST DINING SERVICE WORKER JORGE MURRELL M.D. Normal [facility] Comment on above: Performed By: #### E SR, CBC, CMP, BNP #### [address] COVID CepheidOrdered By: Abbi Jones on 02-14-2024 SARS-CoV-2 (COVID-19) Ab IA Ql Negative Negative [facility] Comment on above: This is a duplicate Cepheid Xpert Xpress CoV-2/Flu/RSV Plus RNA by RT-PCR result to be used for statistical tracking purpose only. SARS-CoV-2 (COVID-19) RNA ELIZABETH+probe Ql (Unsp spec) [facility] COVID-19 / Flu A/B / [...] or Cepheid Disclaimer revoked sooner. PERFORMED BY: [place] [address] PATHOLOGIST DINING SERVICE WORKER JORGE MURRELL M.D. Normal [facility] Comment on above: Performed By: #### E SR, CBC, CMP, BNP #### [address] abdomen pelvis w conon CT abdomen pelvis w con [facility] [place] [address] [place] [address] CT Scan Report Signed Patient: Gera Perdue MR#: [id number] : 1945 Acct:[id number] Age/Sex: 78 / F ADM Date: 02/14/24 Loc: ER Room: Type: [facility] ER Attending Dr: Copies to: [...] Bhavesh Avendaño M.D.02/14/2024 2:21 PM Dictation Location: [place] [address] Transcribed By: [facility] 02/14/24 1421 Dictated By: Bhavesh Avnedaño II, MD 02/14/24 1411 Signed By: 02/14/24 1421 Normal [facility] Calcium [Mass/volume] in Ser um or PlasmaOrdered By: Kadie Jones on 02-14-2024 Calcium [Mass/Vol] 9.5 mg/dL Normal 8.6-10.3 [facility] Comment on above: Performed By: #### S CAN CBC, LIPASE, CMP, HS TROP, MG, NORMA #### [address] Carbon dioxide, total [Moles /volume] in Serum or PlasmaOrdered By: Kadie Jones on 02-14-2024 CO2 [Moles/Vol] 30.8 mmol/L Normal 21.0-31.0 [facility] Comment on above: Performed By: #### S CAN CBC, LIPASE, CMP, HS TROP, MG, NORMA #### [address] Cepheid COVID PCR Negativeon 02-14-2024 SARS-CoV-2 (COVID-19) RNA ELIZABETH+probe Ql (Unsp spec) Negative Normal Negative [facility] Comment on above: Result Comment: This is a duplicate Cepheid Xpert Xpress CoV-2/Flu/RSV Plus RNA by RT-PCR result to be used for statistical tracking purpose only. PERFORMED BY: [place] [address] PATHOLOGIST DINING SERVICE WORKER JORGE MURRELL M.D. Performed By: #### E SR, CBC, CMP, BNP #### [address] Chloride [Moles/volume] in S kaveh or PlasmaOrdered By: Kadie Jones on 02-14-2024 Chloride [Moles/Vol] 97 mmol/L Low 98-107 [facility] Comment on above: Performed By: #### S CAN CBC, LIPASE, CMP, HS TROP, MG, NORMA #### [address] Comprehensive Metabolic Pane harsha 02-14-2024 Albumin [Mass/Vol] 3.7 g/dL Normal 3.5-5.7 [facility] Comment on above: Performed By: #### S CAN CBC, LIPASE, CMP, HS TROP, MG, NORMA #### [address] Creatinine Clr Calc Pharmacy 32.86 Normal [facility] Comment on above: Performed By: #### S CAN CBC, LIPASE, CMP, HS TROP, MG, NORMA #### [address] GFR/1.73 sq M.predicted MDRD (S/P/Bld) [Vol rate/Area] 41.325 mL/min/{1.73_m2} Normal [facility] Comment on above: Performed By: #### S CAN CBC, LIPASE, CMP, HS TROP, MG, NORMA #### [address] Creatinine [Mass/volume] in Serum or PlasmaOrdered By: Kadie Jones on 02-14-2024 Creatinine [Mass/Vol] 1.32 mg/dL High 0.60-1.20 [facility] Comment on above: Performed By: #### S CAN CBC, LIPASE, CMP, HS TROP, MG, NORMA #### [address] Dipstick and Microscopicon 0 02-14-2024 Appearance (U) Clear Normal Clear [facility] Comment on above: Order Comment: Name Collection Type:: Straight Catheter Performed By: #### E SR, CBC, CMP, BNP #### [address] Bacteria,Urine 4+ High None Seen [facility] Comment on above: Order Comment: Name Collection Type:: Straight Catheter Performed By: #### E SR, CBC, CMP, BNP #### [address] Bilirubin,Urine Negative Normal Negative [facility] Comment on above: Order Comment: Name Collection Type:: Straight Catheter Performed By: #### E SR, CBC, CMP, BNP #### [address] Glucose Ql (U) Normal Normal Normal [facility] Comment on above: Order Comment: Name Collection Type:: Straight Catheter Performed By: #### E SR, CBC, CMP, BNP #### [place] [address] [place] Hyaline Casts,Urine 9-19 High 0-8 [facility] Comment on above: Order Comment: Name Collection Type:: Straight Catheter Result Comment: PERF ORMED BY: [place] [address] PATHOLOGIST DINING SERVICE WORKER JORGE MURRELL M.D. Performed By: #### E SR, CBC, CMP, BNP #### [address] Ketones Ql (U) Trace High Negative [facility] Comment on above: Order Comment: Name Collection Type:: Straight Catheter Performed By: #### E SR, CBC, CMP, BNP #### [address] Leukocyte esterase Test strip Ql (U) 3+ High Negative [facility] Comment on above: Order Comment: Name Collection Type:: Straight Catheter Performed By: #### E SR, CBC, CMP, BNP #### [place] [address] [place] Nitrite,Urine Positive High Negative [facility] Comment on above: Order Comment: Name Collection Type:: Straight Catheter Performed By: #### E SR, CBC, CMP, BNP #### [place] [address] [place] Occult Blood,Urine Trace High Negative [facility] Comment on above: Order Comment: Name Collection Type:: Straight Catheter Result Comment: PERF ORMED BY: [place] [address] PATHOLOGIST DINING SERVICE WORKER JORGE MURRELL M.D. Performed By: #### E SR, CBC, CMP, BNP #### [place] [address] [place] RBC LM.HPF (Urine sed) [#/Area] 0 /[HPF] Normal 0-4 [facility] Comment on above: Order Comment: Name Collection Type:: Straight Catheter Performed By: #### E SR, CBC, CMP, BNP #### [address] Specificy [place],Urine 1.024 Normal 1.001-1.03 0 [facility] Comment on above: Order Comment: Name Collection Type:: Straight Catheter Performed By: #### E SR, CBC, CMP, BNP #### [address] Squamous Epithelial Cell,Urine None Seen Normal 0-2 [facility] Comment on above: Order Comment: Name Collection Type:: Straight Catheter Performed By: #### E SR, CBC, CMP, BNP #### [facility] [address] Urobilinogen,Urine Normal Normal Normal [facility] Comment on above: Order Comment: Name Collection Type:: Straight Catheter Performed By: #### E SR, CBC, CMP, BNP #### [address] WBC,Urine 50-100 High 0-4 [facility] Comment on above: Order Comment: Name Collection Type:: Straight Catheter Performed By: #### E SR, CBC, CMP, BNP #### [address] ECG 12 lead ECGon 02-14-2024 ECG 12 lead ECG [facility] [place] [address] [place] [address] Electrocardiograph Report Signed Patient: Gera Perdue MR#: [id number] : 1945 Acct:[id number] Age/Sex: 78 / F ADM Date: 02/14/24 Loc: ER Room: Type: [facility] ER Attending Dr: Ordering Provider: [...] was found Confirmed by MARSHALL DOMINGUEZ DO ([id number]) on 02/14/2024 3:23:36 PM Referred By: Electronically Signed By:MARSHALL DOMINGUEZ DO Transcribed By: MUS Signed By Marshall Dominguez DO 02/13 1523 Normal [facility] Erythrocyte distribution wid th [Ratio] by Automated countOrdered By: Kadie Jones on 02-14-2024 Erythrocyte distribution width (RBC) [Ratio] 18.4 % High 11.9-15.3 [facility] Comment on above: Performed By: #### S CAN CBC, LIPASE, CMP, HS TROP, MG, NORMA #### [facility] [address] Erythrocytes [#/volume] in B lood by Automated countOrdered By: Kadie Jones on 02-14-2024 RBC (Bld) [#/Vol] 5.04 10*6/uL High 3.60-5.00 [facility] Comment on above: Performed By: #### S CAN CBC, LIPASE, CMP, HS TROP, MG, NORMA #### [facility] [address] Glucose [Mass/volume] in Ser um or PlasmaOrdered By: Kadie Jones on 02-14-2024 Glucose [Mass/Vol] 85 mg/dL Normal 70-100 [facility] Comment on above: ADA recommended refe rence rangeRandom Glucose Reference Range is dependent on time and content of last meal. Glucose of more than 200 mg/dL in a nonstressed, ambulatory subject supports the diagnosis of Diabetes Mellitus. Result Comment: [place] om Glucose Reference Range is dependent on time and content of last meal. Glucose of more than 200 mg/dL in a nonstressed, ambulatory subject supports the diagnosis of Diabetes Mellitus. ADA recommended reference range Performed By: #### S CAN CBC, LIPASE, CMP, HS TROP, MG, NORMA #### [facility] [address] [place] [address] [place] Hematocrit [Volume Fraction] of Blood by Automated countOrdered By: Kadie Jones on 02-14-2024 Hematocrit (Bld) [Volume fraction] 38.5 % Normal 34.0-46.4 [facility] Comment on above: Performed By: #### S CAN CBC, LIPASE, CMP, HS TROP, MG, NORMA #### [facility] [address] [place] [address] Hemoglobin [Mass/volume] in BloodOrdered By: Kadie Jones on 02-14-2024 Hemoglobin (Bld) [Mass/Vol] 12.2 g/dL Normal 11.8-15.4 [facility] Comment on above: Performed By: #### S CAN CBC, LIPASE, CMP, HS TROP, MG, NORMA #### [facility] [address] [place] [address] Ketones Auto test strip (U) [Mass/Vol]Ordered By: Kadie Jones on 02-14-2024 Ketones (U) [Mass/Vol] Trace Negative [facility] - UrinalysisOrder ed By: Kadie Jones on 02-14-2024 Hyaline casts LM Ql (Urine sed) 9 [LPF] 0-8 [facility] Lactate [Moles/volume] in Se rum or PlasmaOrdered By: Kadie Jones on 02-14-2024 Lactate [Moles/Vol] 0.8 mmol/L Normal 0.5-2.2 [facility] Comment on above: Result Comment: PERF ORMED BY: [place] [address] PATHOLOGIST DINING SERVICE WORKER JORGE MURRELL M.D. Performed By: #### E SR, CBC, CMP, BNP #### [facility] [address] [place] [address] Leukocytes [#/volume] correc juma for nucleated erythrocytes in Blood by Automated counOrdered By: Kadie Jones on 02-14-2024 WBC corrected for nucl RBC Auto (Bld) [#/Vol] 13.6 10*3/uL 3.8-11.6 [facility] Leukocytes [#/volume] in Blo od by Automated countOrdered By: Kadie Jones on 02-14-2024 WBC (Bld) [#/Vol] 13.6 10*3/uL High 3.8-11.6 [facility] Comment on above: Performed By: #### S CAN CBC, LIPASE, CMP, HS TROP, MG, NORMA #### [address] Lipase [Enzymatic activity/v olume] in Serum or PlasmaOrdered By: Kadie Jones on 02-14-2024 Lipase [Catalytic activity/Vol] 6.0 U/L Low 11.0-82.0 [facility] Comment on above: Result Comment: PERF ORMED BY: [place] [address] PATHOLOGIST DINING SERVICE WORKER JORGE MURRELL M.D. Performed By: #### S CAN CBC, LIPASE, CMP, HS TROP, MG, NORMA #### [address] Lymphocytes [#/volume] in Bl ood by Automated countOrdered By: Kadie Jones on 02-14-2024 Lymphocytes (Bld) [#/Vol] 3.2 10*3/uL Normal 1.00-4.8 [facility] Comment on above: Performed By: #### S CAN CBC, LIPASE, CMP, HS TROP, MG, NORMA #### [address] Lymphocytes/100 leukocytes i n Blood by Automated countOrdered By: Kadie Jones on 02-14-2024 Lymphocytes/100 WBC (Bld) 23.7 % Normal . [facility] Comment on above: Performed By: #### S CAN CBC, LIPASE, CMP, HS TROP, MG, NORMA #### [address] MCH [Entitic mass] by Automa juma countOrdered By: Kadie Jones on 02-14-2024 MCH (RBC) [Entitic mass] 24.3 pg Low 24.7-34.3 [facility] Comment on above: Performed By: #### S CAN CBC, LIPASE, CMP, HS TROP, MG, NORMA #### [address] MCHC Auto (RBC) [Mass/Vol]Or dered By: Kadie Jones on 02-14-2024 MCHC (RBC) [Mass/Vol] 31.8 g/dL 32.0-35.0 [facility] MCV [Entitic volume] by Auto mated countOrdered By: Kadie Jones on 02-14-2024 MCV (RBC) [Entitic vol] 76.4 fL Low 80-100 [facility] Comment on above: Performed By: #### S CAN CBC, LIPASE, CMP, HS TROP, MG, NORMA #### [facility] [address] Magnesium [Mass/volume] in S kaveh or PlasmaOrdered By: Kadie Jones on 02-14-2024 Magnesium [Mass/Vol] 1.1 mg/dL Low 1.9-2.7 [facility] Comment on above: Performed By: #### S CAN CBC, LIPASE, CMP, HS TROP, MG, NORMA #### [facility] [address] Monocyte distribution width [Entitic volume] in Blood by AutomatedOrdered By: Kadie Jones on 02-14-2024 Monocyte distribution width Auto (Bld) [Entitic vol] 25.16 % 0.00-20.00 [facility] Comment on above: For adults in ED, MD W > 20.0 may be associated with a higher risk of sepsis during the first 12 hrs of hospital admission Neutrophils [#/volume] in Bl ood by Automated countOrdered By: Kadie Jones on 02-14-2024 Neutrophils (Bld) [#/Vol] 8.5 10*3/uL High 1.8-7.7 [facility] Comment on above: Performed By: #### S CAN CBC, LIPASE, CMP, HS TROP, MG, NORMA #### [facility] [address] Nitrite Test strip Ql (U)Ord ered By: Kadie Jones on 02-14-2024 Nitrite Ql (U) Positive Negative [facility] No Panel InformationOrdered By: Kadie Jones on 02-14-2024 Estimated GFR (CKD-EPI) 41.325 mL/Min [facility] Creatinine Clearance (Chem 32.86 [facility] Nucleated erythrocytes [Pres ence] in Blood by Automated countOrdered By: Kadie Jones on 02-14-2024 Nucleated RBC Auto Ql (Bld) 0.1 /100{WBC} 0-0.5 [facility] Platelet adequacy [Presence] in Blood by Light microscopyOrdered By: Kadie Hustonore on 02-14-2024 Platelets LM Ql (Bld) Normal Normal [facility] Platelet mean volume [Entiti c volume] in Blood by Automated countOrdered By: Kadie Hungimore on 02-14-2024 Platelet mean volume (Bld) [Entitic vol] 7.0 fL Normal 6.3-10.7 [facility] Comment on above: Performed By: #### S CAN CBC, LIPASE, CMP, HS TROP, MG, NORMA #### [facility] [address] [place] [address] Platelet morphology finding [Identifier] in BloodOrdered By: Kadie Jones on 02-14-2024 Platelet morphology finding Nom (Bld) Normal Normal [facility] Platelets [#/volume] in Bloo d by Automated countOrdered By: Kadie Jones on 02-14-2024 Platelets (Bld) [#/Vol] 448 10*3/uL Normal 150-450 [facility] Comment on above: Performed By: #### S CAN CBC, LIPASE, CMP, HS TROP, MG, NORMA #### [facility] [address] [place] [address] [place] Potassium [Moles/volume] in Serum or PlasmaOrdered By: Kadie Jones on 02-14-2024 Potassium [Moles/Vol] 4.0 mmol/L Normal 3.5-5.1 [facility] Comment on above: Performed By: #### S CAN CBC, LIPASE, CMP, HS TROP, MG, NORMA #### [facility] [address] [place] [address] [place] Protein [Mass/volume] in Ser um or PlasmaOrdered By: Kadie Bullimore on 02-14-2024 Protein [Mass/Vol] 7.9 g/dL Normal 6.4-8.9 [facility] Comment on above: Performed By: #### S CAN CBC, LIPASE, CMP, HS TROP, MG, NORMA #### [address] RBC morphologyOrdered By: Jeannie Jones on 02-14-2024 RBC morphology finding Nom (Bld) Normal Normal Normal [facility] Comment on above: Performed By: #### S CAN CBC, LIPASE, CMP, HS TROP, MG, NORMA #### [address] Scan and CBCon 02-14-2024 Mean Corpuscular HGB Conc 31.8 g/dL Low 32.0-35.0 [facility] Comment on above: Performed By: #### S CAN CBC, LIPASE, CMP, HS TROP, MG, NORMA #### [address] Monocytes/100 WBC (Bld) 25.16 % High 0.00-20.00 [facility] Comment on above: Result Comment: For adults in ED, MDW > 20.0 may be associated with a higher risk of sepsis during the first 12 hrs of hospital admission Performed By: #### S CAN CBC, LIPASE, CMP, HS TROP, MG, NORMA #### [address] NRBC% 0.1 /100{WBC} Normal 0-0.5 [facility] Comment on above: Performed By: #### S CAN CBC, LIPASE, CMP, HS TROP, MG, NORMA #### [address] Platelet Estimate Normal Normal Normal [facility] Comment on above: Performed By: #### S CAN CBC, LIPASE, CMP, HS TROP, MG, NORMA #### [address] Platelet Morphology Normal Normal Normal [facility] Comment on above: Result Comment: PERF ORMED BY: [place] [address] PATHOLOGIST DINING SERVICE WORKER JORGE MURRELL M.D. Performed By: #### S CAN CBC, LIPASE, CMP, HS TROP, MG, NORMA #### [address] Serum globulin measurement b y calculation (mass/volume)Ordered By: Kadie Jones on 02-14-2024 Globulin (S) [Mass/Vol] 4.2 g/dL [facility] Comment on above: Performed By: #### S CAN CBC, LIPASE, CMP, HS TROP, MG, NORMA #### [address] Serum or plasma albumin/glob ulin mass ratioOrdered By: Kadie Bullimore on 02-14-2024 Albumin/Globulin [Mass ratio] 0.9 {ratio} [facility] Comment on above: Performed By: #### S CAN CBC, LIPASE, CMP, HS TROP, MG, NORMA #### [address] Serum or plasma anion gap de terminationOrdered By: Kadie Bullimore on 02-14-2024 Anion gap [Moles/Vol] 14.2 mmol/L Normal 6.0-15.0 [facility] Comment on above: Performed By: #### S CAN CBC, LIPASE, CMP, HS TROP, MG, NORMA #### [address] Sodium [Moles/volume] in Ser um or PlasmaOrdered By: Kadie Bullimore on 02-14-2024 Sodium [Moles/Vol] 138 mmol/L Normal 136-145 [facility] Comment on above: Performed By: #### S CAN CBC, LIPASE, CMP, HS TROP, MG, NROMA #### [address] Specific gravity Auto test s trip (U) [Rel density]Ordered By: Kadie Jones on 02-14-2024 Specific gravity (U) [Rel density] 1.024 1.001-1.03 0 [facility] Squamous epithelial cells de tection in urine sediment by light microscopyOrdered By: Kadie Jones on 02-14-2024 Epithelial cells.squamous LM Ql (Urine sed) None seen [HPF] 0-2 [facility] Troponin I High Sensitivityo n 02-14-2024 Troponin I High Sensitivity 6.5 pg/mL Normal 0.0-15.0 [facility] Comment on above: Result Comment: PERF ORMED BY: [address] [place] [address] PATHOLOGIST DINING SERVICE WORKER JORGE MURRELL M.D. Performed By: #### S CAN CBC, LIPASE, CMP, HS TROP, MG, NORMA #### [facility] [address] [place] [address] Troponin I.cardiac [Mass/vol ume] in Serum or Plasma by Detection limit <= 0.01 ng/Ordered By: Kadie Jones on 02-14-2024 Troponin I.cardiac DL <= 0.01 ng/mL [Mass/Vol] 6.5 pg/mL 0.0-15.0 [facility] Urea nitrogen [Mass/volume] in Serum or PlasmaOrdered By: Kadie Jones on 02-14-2024 Urea nitrogen [Mass/Vol] 18 mg/dL Normal 7-25 [facility] Comment on above: Performed By: #### S CAN CBC, LIPASE, CMP, HS TROP, MG, NORMA #### [facility] [address] [place] [address] Urine Cultureon 02-14-2024 Bacteria identified Cx Nom (U) ORGANISM: Klebsiella pneumoniae (O:KLEPNE) Flowood Count >100,000 Aerobic NATALIA Charge (NMIC56) SUSCEPTIBILITY [...] EXTENDED SPECTRUM BETA-LACTAMASE TFG = THYMIDINE-DEPENDENT STRAIN HLALIE = BETA-LACTAMASE POSITIVE IB = INDUCIBLE BETA-LACTAMASE. APPEARS IN PLACE OF 'S' WITH SPECIES KNOWN TO POSSESS INDUCIBLE BETA-LACTAMASES. POTENTIALLY THEY MAY BECOME RESISTANT TO ALL B-LACTAM DRUGS. PERFORMED BY: [place] [address] PATHOLOGIST DINING SERVICE WORKER JORGE MURRELL M.D. Normal [facility] Comment on above: Performed By: #### E SR, CBC, CMP, BNP #### [facility] [address] [place] [address] Urine bacteria detection by automated methodOrdered By: Kadie Jones on 02-14-2024 Bacteria Auto Ql (U) 4+ None Seen [facility] Urine clarity by refractomet ry automatedOrdered By: Kadie Jones on 02-14-2024 Clarity Refractometry automated (U) Clear Clear [facility] Urine culture routineOrdered By: Kadie Jones on 02-14-2024 Bacteria identified Cx Nom (U) Klebsiella pneumoniae [facility] Urine glucose measurement by automated test strip (mass/volume)Ordered By: Kadie Jones on 02-14-2024 Glucose Auto test strip (U) [Mass/Vol] Normal mg/dL Normal [facility] Urine hemoglobin detection b y automated test stripOrdered By: Kadie Jones on 02-14-2024 Hemoglobin Auto test strip Ql (U) Trace Negative [facility] Urine leukocyte esterase det ection by automated test stripOrdered By: Kadie Jones on 02-14-2024 Leukocyte esterase Auto test strip Ql (U) 3+ Negative [facility] Urine pH measurement by auto mated test stripOrdered By: Kadie Jones on 02-14-2024 pH (U) 5.5 [pH] Normal 5.0-9.0 [facility] Comment on above: Order Comment: Name Collection Type:: Straight Catheter Performed By: #### E SR, CBC, CMP, BNP #### [facility] [address] Urine protein measurement by automated test strip (mass/volume)Ordered By: Kadie Jones on 02-14-2024 Protein (U) [Mass/Vol] 30 mg/dL High Negative [facility] Comment on above: Order Comment: Name Collection Type:: Straight Catheter Performed By: #### E SR, CBC, CMP, BNP #### [address] Urobilinogen Auto test strip (U) [Mass/Vol]Ordered By: Kadie Jones on 02-14-2024 Urobilinogen (U) [Mass/Vol] Normal mg/dL Normal [facility] XR chest 1V portableon 02-13 XR chest 1V portable [facility] [place] [address] [place] [address] XRay Report Signed Patient: Gera Perdue MR#: [id number] : 1945 Acct:[id number] Age/Sex: 78 / F ADM Date: 02/14/24 Loc: ER Room: Type: [facility] ER Attending Dr: Copies to: [...] Bhavesh Avendaño M.D.02/14/2024 12:59 PM Dictation Location: [place] [address] Transcribed By: [facility] 02/14/24 1259 Dictated By: Bhavesh Avendaño II, MD 02/14/24 1257 Signed By: 02/14/24 1259 Normal [facility] C Urineon 02-01-2024 Bacteria identified Cx Nom (U) Microbiology PROCEDURE: Urine Culture [R1] SOURCE: U Random BODY SITE: COLLECTED DATE/TIME: 01/30/2024 14:39 EDT RECEIVED DATE/TIME: 01/30/2024 19:21 EDT START DATE/TIME: 01/30/2024 19:21 EDT FREE TEXT SOURCE: Orjennie PROSPECTING OBSERVER, FISH PEDDLER-C, Orzech PROSPECTING OBSERVER, FISH PEDDLER-C, Renae X Renae X FINAL REPORTS Final Report [] Verified Date/Time: 02/01/2024 09:31 EDT <10,000 cfu/ml Mixed skin contaminants Mixed kimberly (multiple species present) Performing Locations R1: This test was performed at: [facility], [address] [place] [address], [facility]- , , [facility] Comment on above: Performed By: #### 2 [id number] #### [facility] [address] [place] [address] Formson 01-31-2024 Forms [id number] Normal [facility] Physician Referralon 024 Physician Referral [id number] Normal [facility] Ambulatory Visit Summaryon 0 01-30-2024 Ambulatory Visit Summary GERA PERDUE:1945 Visit Date:01/30/2024 Ambulatory Visit Instructions Your Diagnosis [...] Atherosclerosis of aorta Atherosclerotic heart disease of [place] coronary artery without angina pectoris Carotid stenosis [...] for choosing us for your care. [facility] Patient Educationon 01-30-20 Patient Education Obstetrics [...] this condition includes: ? Antibiotic medicine. ? Eaef-dde-emyclyw medicines to treat discomfort. ? Drinking enough [...] these instructions at home: Medicines ? Take tmio-upo-ybeqhnw and prescription medicines only as told by [...] Revie (more content not included)... Normal Garcia [facility] Urology Office/Clinic Noteon 01-30-2024 Urology Office/Clinic Note Chief Complaint Lisw referal for incontinence HPI Staff 78 year old female referred by Dr. Salas for incontinence. Micro UA done 12/30/23. She states she thought she seen Dr. Croft before (nothing on [employer]) she just knows it was a long time ago Started at [facility] September with UTI and was transferred to [facility] in October is when they told her [...] with voice recognition artificial intelligence software, specifically [employer], KSKT and or AddIn Social. Substitutions may have occurred due to the [...] otherwise by our office. Rx sent to [facility] in [place]. - Start antibiotics today - Send urine for culture Ordered: cephalexin, 500 mg = 1 cap(s), Oral, q12hr, X 7 day(s), # 14 cap(s), Refills(s) 0, Pharmacy: [id number], 170, cm, 01/30/24 13:39:00 [...] reevaluate after procedure Ordered: Urine Culture Orders: [id number] Measure Post Void residual urine and/or bladder capacity by US- non-imaging Urnls Dip Stick Auto w/o Microscopy POC 73950 Urnls Dip Stick Auto w/o Microscopy POC 85802 Follow-up With When Contact Information CHIP Ponce APRN, Renae Delaney, FAM, URL Additional Instruction (more content not included)... Normal [facility] Comment on above: Result Comment: Elec tronically Signed By: CHIP Ponce APRN, Renae Delaney\.br\Date and Time Signed: 01/30/24 14:52 EDT TRANSTHORACIC ECHO (TTE) COM PLETEon 01-27-2024 TRANSTHORACIC ECHO (TTE) COMPLETE [address], [address] [place] [address] TRANSTHORACIC ECHOCARDIOGRAM REPORT Patient Name: GERA Durham IRON Hernandez Physician: [id number] Seth Barnes MD, [facility] Study Date: 01/27/2024 Ordering Provider: [id number] JENNA ENGLE MRN/PID: [id number] Fellow: Nurse: Date of /Age: 1 1945 / 78 years Wire Lather: Inessa Roche [facility], T Gender: F Additional Staff: Height: 162.56 cm Admit Date: Weight: 87.09 kg Admission Status: BSA / BMI: 1.92 m2 / 32.96 kg/m2 Department Location: [facility] Blood Pressure: 126 /78 mmHg Study Type: TRANSTHORACIC ECHO (TTE) COMPLETE Diagnosis/ICD: Shortness of breath-R06.02 Indication: History of PEA-09/2023, CAD, PTCA-04/2019, COPD, HTN, Hyperlipidemia, Tobacco Abuse, Hypoxemia, Sid, CKD-Stage III, Anemia CPT Codes: Echo Complete w Full Doppler-68834 Study Detail: The following Echo studies were [...] 1.1 m/s (0.6-0.9m/s) PV Max P.5 mmHg [id number] Seth Barnes MD, FACC Electronically signed on 01/29/2024 at 7:26:59 PM Final Normal [facility] Alanine aminotransferase [En zymatic activity/volume] in Serum or PlasmaOrdered By: Jenna Engle on 01-06-2024 ALT [Catalytic activity/Vol] 19 U/L Normal [facility] Comment on above: Performed By: #### E SR, CBC, CMP, BNP #### [address] Albumin [Mass/volume] in Ser um or Plasma by Bromocresol green (BCG) dye binding methoOrdered By: Jenna Engle on 01-06-2024 Albumin BCG dye [Mass/Vol] 3.9 g/dL 3.5-5.7 [facility] Alkaline phosphatase [Enzyma tic activity/volume] in Serum or PlasmaOrdered By: Jenna Engle on 01-06-2024 ALP [Catalytic activity/Vol] 66 U/L Normal 34-104 [facility] Comment on above: Result Comment: PERF ORMED BY: [place] [address] PATHOLOGIST DINING SERVICE WORKER JORGE MURRELL M.D. Performed By: #### E SR, CBC, CMP, BNP #### [address] Aspartate aminotransferase [ Enzymatic activity/volume] in Serum or PlasmaOrdered By: Jenna Engle on 01-06-2024 AST [Catalytic activity/Vol] 22 U/L Normal 13-39 [facility] Comment on above: Performed By: #### E SR, CBC, CMP, BNP #### [address] Automated basophil %Ordered By: Jenna Engle on 01-06-2024 Basophils/100 WBC (Bld) 0.4 % Normal . [facility] Comment on above: Performed By: #### E SR, CBC, CMP, BNP #### [address] Automated basophil countOrde red By: Jenna Engle on 01-06-2024 Basophils (Bld) [#/Vol] 0.1 10*3/uL Normal 0.0-0.2 [facility] Comment on above: Performed By: #### E SR, CBC, CMP, BNP #### [address] Automated blood monocyte cou ntOrdered By: Jenna Engle on 01-06-2024 Monocytes (Bld) [#/Vol] 1.2 10*3/uL High 0.0-0.8 [facility] Comment on above: Performed By: #### E SR, CBC, CMP, BNP #### [address] [place] [address] [place] Automated eosinophil %Ordere d By: Jenna Engle on 01-06-2024 Eosinophils/100 WBC (Bld) 0.9 % Normal . [facility] Comment on above: Performed By: #### E SR, CBC, CMP, BNP #### [address] Automated eosinophil countOr dered By: Jenna Engle on 01-06-2024 Eosinophils (Bld) [#/Vol] 0.1 10*3/uL Normal 0.0-0.45 [facility] Comment on above: Performed By: #### E SR, CBC, CMP, BNP #### [address] Automated monocyte %Ordered By: Jenna Engle on 01-06-2024 Monocytes/100 WBC (Bld) 8.7 % Normal . [facility] Comment on above: Performed By: #### E SR, CBC, CMP, BNP #### [address] Automated neutrophil %Ordere d By: Jenna Engle on 01-06-2024 Neutrophils/100 WBC (Bld) 59.8 % Normal . [facility] Comment on above: Performed By: #### E SR, CBC, CMP, BNP #### [address] BNP ser/plasOrdered By: Gisel Engle on 01-06-2024 Natriuretic peptide B (Bld) [Mass/Vol] 358.0 pg/mL High 5-100 [facility] Comment on above: Result Comment: PERF ORMED BY: [place] [address] PATHOLOGIST DINING SERVICE WORKER JORGE MURRELL M.D. Performed By: #### E SR, CBC, CMP, BNP #### [address] Bilirubin.total [Mass/volume ] in Serum or PlasmaOrdered By: Jenna Engle on 01-06-2024 Bilirubin [Mass/Vol] 0.3 mg/dL Normal 0.3-1.0 [facility] Comment on above: Performed By: #### E SR, CBC, CMP, BNP #### [address] Calcium [Mass/volume] in Ser um or PlasmaOrdered By: Jenna Engle on 01-06-2024 Calcium [Mass/Vol] 9.5 mg/dL Normal 8.6-10.3 [facility] Comment on above: Performed By: #### E SR, CBC, CMP, BNP #### [address] Carbon dioxide, total [Moles /volume] in Serum or PlasmaOrdered By: Jenna Engle on 01-06-2024 CO2 [Moles/Vol] 31.7 mmol/L High 21.0-31.0 [facility] Comment on above: Performed By: #### E SR, CBC, CMP, BNP #### [address] Chloride [Moles/volume] in S kaveh or PlasmaOrdered By: Jenna Engle on 01-06-2024 Chloride [Moles/Vol] 108 mmol/L High 98-107 [facility] Comment on above: Performed By: #### E SR, CBC, CMP, BNP #### [address] Complete Blood Count Auto Di ffon 01-06-2024 Mean Corpuscular HGB Conc 31.6 g/dL Low 32.0-35.0 [facility] Comment on above: Performed By: #### E SR, CBC, CMP, BNP #### [address] NRBC% 0.0 /100{WBC} Normal 0-0.5 [facility] Comment on above: Performed By: #### E SR, CBC, CMP, BNP #### [address] Comprehensive Metabolic Pane harsha 01-06-2024 Albumin [Mass/Vol] 3.9 g/dL Normal 3.5-5.7 [facility] Comment on above: Performed By: #### E SR, CBC, CMP, BNP #### [address] GFR/1.73 sq M.predicted MDRD (S/P/Bld) [Vol rate/Area] 47.277 mL/min/{1.73_m2} Normal [facility] Comment on above: Performed By: #### E SR, CBC, CMP, BNP #### [address] Creatinine [Mass/volume] in Serum or PlasmaOrdered By: Jenna Engle on 01-06-2024 Creatinine [Mass/Vol] 1.18 mg/dL Normal 0.60-1.20 [facility] Comment on above: Performed By: #### E SR, CBC, CMP, BNP #### [address] ECG 12 Leadon 01-06-2024 [facility] Work Phone: Normal sinus rhythm at 62 bpm SD interval 170 ms QRS duration 80 ms QTc 401 ms. [facility] Work Phone: [facility] Work Phone: Erythrocyte Sedimentation Ra jami 01-06-2024 ESR (Bld) [Velocity] 34 mm/h High 0-29 [facility] Comment on above: Result Comment: PERF ORMED BY: [place] [address] PATHOLOGIST DINING SERVICE WORKER JORGE MURRELL M.D. Performed By: #### E SR, CBC, CMP, BNP #### [facility] [address] [place] [address] Erythrocyte distribution wid th [Ratio] by Automated countOrdered By: Jenna Engle on 01-06-2024 Erythrocyte distribution width (RBC) [Ratio] 20.0 % High 11.9-15.3 [facility] Comment on above: Performed By: #### E SR, CBC, CMP, BNP #### [facility] [address] Erythrocyte sedimentation ra te by Photometric methodOrdered By: Jenna Engle on 01-06-2024 ESR Photometric method (Bld) [Velocity] 34 mm/hr 0-29 [facility] Erythrocytes [#/volume] in B lood by Automated countOrdered By: Jenna Engle on 01-06-2024 RBC (Bld) [#/Vol] 4.54 10*6/uL Normal 3.60-5.00 [facility] Comment on above: Performed By: #### E SR, CBC, CMP, BNP #### [address] Glucose [Mass/volume] in Ser um or PlasmaOrdered By: Jenna Engle on 01-06-2024 Glucose [Mass/Vol] 85 mg/dL Normal 70-100 [facility] Comment on above: ADA recommended refe rence rangeRandom Glucose Reference Range is dependent on time and content of last meal. Glucose of more than 200 mg/dL in a nonstressed, ambulatory subject supports the diagnosis of Diabetes Mellitus. Result Comment: [place] Glucose Reference Range is dependent on time and content of last meal. Glucose of more than 200 mg/dL in a nonstressed, ambulatory subject supports the diagnosis of Diabetes Mellitus. ADA recommended reference range Performed By: #### E SR, CBC, CMP, BNP #### [facility] [address] Hematocrit [Volume Fraction] of Blood by Automated countOrdered By: Jenna Engle on 01-06-2024 Hematocrit (Bld) [Volume fraction] 35.7 % Normal 34.0-46.4 [facility] Comment on above: Performed By: #### E SR, CBC, CMP, BNP #### [address] Hemoglobin [Mass/volume] in BloodOrdered By: Jenna Engle on 01-06-2024 Hemoglobin (Bld) [Mass/Vol] 11.3 g/dL Low 11.8-15.4 [facility] Comment on above: Performed By: #### E SR, CBC, CMP, BNP #### [facility] [address] [place] [address] Leukocytes [#/volume] correc juma for nucleated erythrocytes in Blood by Automated counOrdered By: Jenna Engle on 01-06-2024 WBC corrected for nucl RBC Auto (Bld) [#/Vol] 14.2 10*3/uL 3.8-11.6 [facility] Leukocytes [#/volume] in Blo od by Automated countOrdered By: Jenna Engle on 01-06-2024 WBC (Bld) [#/Vol] 14.2 10*3/uL High 3.8-11.6 [facility] Comment on above: Performed By: #### E SR, CBC, CMP, BNP #### [facility] [address] [place] [address] Lymphocytes [#/volume] in Bl ood by Automated countOrdered By: Jenna Engle on 01-06-2024 Lymphocytes (Bld) [#/Vol] 4.3 10*3/uL Normal 1.00-4.8 [facility] Comment on above: Performed By: #### E SR, CBC, CMP, BNP #### [facility] [address] [place] [address] Lymphocytes/100 leukocytes i n Blood by Automated countOrdered By: Jenna Engle on 01-06-2024 Lymphocytes/100 WBC (Bld) 30.2 % Normal . [facility] Comment on above: Performed By: #### E SR, CBC, CMP, BNP #### [facility] [address] [place] [address] [place] MCH [Entitic mass] by Automa juma countOrdered By: Jenna Engle on 01-06-2024 MCH (RBC) [Entitic mass] 24.9 pg Normal 24.7-34.3 [facility] Comment on above: Performed By: #### E SR, CBC, CMP, BNP #### [facility] [address] [place] [address] MCHC Auto (RBC) [Mass/Vol]Or dered By: Jenna Engle on 01-06-2024 MCHC (RBC) [Mass/Vol] 31.6 g/dL 32.0-35.0 [facility] MCV [Entitic volume] by Auto mated countOrdered By: Jenna Engle on 01-06-2024 MCV (RBC) [Entitic vol] 78.7 fL Low 80-100 [facility] Comment on above: Performed By: #### E SR, CBC, CMP, BNP #### [facility] [address] [place] [address] Neutrophils [#/volume] in Bl ood by Automated countOrdered By: Jenna Engle on 01-06-2024 Neutrophils (Bld) [#/Vol] 8.5 10*3/uL High 1.8-7.7 [facility] Comment on above: Performed By: #### E SR, CBC, CMP, BNP #### [facility] [address] [place] [address] No Panel InformationOrdered By: Jenna Engle on 01-06-2024 Estimated GFR (CKD-EPI) 47.277 mL/Min [facility] Creatinine Clearance (Chem N/A [facility] Nucleated erythrocytes [Pres ence] in Blood by Automated countOrdered By: Jenna Engle on 01-06-2024 Nucleated RBC Auto Ql (Bld) 0.0 /100{WBC} 0-0.5 [facility] Platelet mean volume [Entiti c volume] in Blood by Automated countOrdered By: Jenna Engle on 01-06-2024 Platelet mean volume (Bld) [Entitic vol] 7.2 fL Normal 6.3-10.7 [facility] Comment on above: Performed By: #### E SR, CBC, CMP, BNP #### [facility] [address] [place] [address] Platelets [#/volume] in Bloo d by Automated countOrdered By: Jenna Engle on 01-06-2024 Platelets (Bld) [#/Vol] 330 10*3/uL Normal 150-450 [facility] Comment on above: Performed By: #### E SR, CBC, CMP, BNP #### [facility] [address] [place] [address] Potassium [Moles/volume] in Serum or PlasmaOrdered By: Jenna Engle on 01-06-2024 Potassium [Moles/Vol] 4.5 mmol/L Normal 3.5-5.1 [facility] Comment on above: Performed By: #### E SR, CBC, CMP, BNP #### [facility] [address] [place] [address] Protein [Mass/volume] in Ser um or PlasmaOrdered By: Jenna Engle on 01-06-2024 Protein [Mass/Vol] 7.1 g/dL Normal 6.4-8.9 [facility] Comment on above: Performed By: #### E SR, CBC, CMP, BNP #### [facility] [address] [place] [address] Serum globulin measurement b y calculation (mass/volume)Ordered By: Jenna Engle on 01-06-2024 Globulin (S) [Mass/Vol] 3.2 g/dL [facility] Comment on above: Performed By: #### E SR, CBC, CMP, BNP #### [facility] [address] [place] [address] Serum or plasma albumin/glob ulin mass ratioOrdered By: Jenna Engle on 01-06-2024 Albumin/Globulin [Mass ratio] 1.2 {ratio} [facility] Comment on above: Performed By: #### E SR, CBC, CMP, BNP #### [facility] [address] [place] [address] Serum or plasma anion gap de terminationOrdered By: Jenna Engle on 01-06-2024 Anion gap [Moles/Vol] 8.8 mmol/L Normal 6.0-15.0 [facility] Comment on above: Performed By: #### E SR, CBC, CMP, BNP #### [facility] [address] [place] [address] [place] Sodium [Moles/volume] in Ser um or PlasmaOrdered By: Jenna Engle on 01-06-2024 Sodium [Moles/Vol] 144 mmol/L Normal 136-145 [facility] Comment on above: Performed By: #### E SR, CBC, CMP, BNP #### [facility] [address] Urea nitrogen [Mass/volume] in Serum or PlasmaOrdered By: Jenna Engle on 01-06-2024 Urea nitrogen [Mass/Vol] 31 mg/dL High 7-25 [facility] Comment on above: Performed By: #### E SR, CBC, CMP, BNP #### [facility] [address] XR chest 2V*on 01-06-2024 XR chest 2V* [facility] [place] [address] [place] [address] XRay Report Signed Patient: Gera Perdue MR#: [id number] : 1945 Acct:[id number] Age/Sex: 78 / F ADM Date: 01/06/24 Loc: XD Room: Type: [facility] Attending Dr: Jenna Engle MD Copies [...] Palma Jr., D.O.01/06/2024 4:08 PM Dictation Location: [place] [address] Transcribed By: [facility] 01/06/24 1608 Dictated By: Rodriguez Palma Jr, DO 01/06/24 1608 Signed By: 01/06/24 1608 Normal [facility] BASIC METABOLIC PANLon 10-23 Anion gap [Moles/Vol] 9 mmol/L Normal 5-15 [facility] Comment on above: Performed By: #### C SRINI, SANTOSH, , 2776-10 #### [facility] ([id number]) [address], [address] [place] [address] Calcium [Mass/Vol] 9.1 mg/dL Normal 8.5-10.5 [facility] Comment on above: Performed By: #### C SRINI, BMP, , 2776-10 #### [facility] ([id number]) [address], [address] [place] [address] Chloride [Moles/Vol] 102 mmol/L Normal 98-109 [facility] Comment on above: Performed By: #### Timmy MILLIGAN, SANTOSH, , 2776-10 #### [facility] ([id number]) [address], [address] [place] [address] CO2 [Moles/Vol] 26 mmol/L Normal 22-32 [facility] Comment on above: Performed By: #### Timmy MILLIGAN, SANTOSH, , 2776-10 #### [facility] ([id number]) [address], [address] [place] [address] Creatinine [Mass/Vol] 1.08 mg/dL High 0.40-1.00 [facility] Comment on above: Result Comment: METH OD TRACEABLE TO IDMS STANDARD Performed By: #### Timmy MILLIGAN, SANTOSH, , 2776-10 #### [facility] ([id number]) [address], [address] [place] [address] GFR/1.73 sq M.predicted among non-blacks MDRD (S/P/Bld) [Vol rate/Area] 53 mL/min/{1.73_m2} Low >59 [facility] Comment on above: Result Comment: Reported eGFR is based on the CKD-EPI 2020 equation that does not use a race coefficient. Performed By: #### C BC, BMP, 86373-627[address]-10 #### [facility] ([id number]) [address], [address] [place] [address] Glucose [Mass/Vol] 96 mg/dL Normal 65-99 [facility] Comment on above: Performed By: #### C SANTOSH MILLIGAN, , 2776-10 #### [facility] ([id number]) [address], [address] [place] [address] Potassium [Moles/Vol] 4.4 mmol/L Normal 3.5-5.0 [facility] Comment on above: Performed By: #### C SANTOSH MILLIGAN, , 2776-10 #### [facility] ([id number]) [address], [address] [place] [address] Sodium [Moles/Vol] 137 mmol/L Normal 134-146 [facility] Comment on above: Performed By: #### SANTOSH SALEEM, , 2776-10 #### [facility] ([id number]) [address], [address] [place] [address] Urea nitrogen [Mass/Vol] 13 mg/dL Normal 5-27 [facility] Comment on above: Performed By: #### SANTOSH SALEEM, , 2776-10 #### [facility] ([id number]) [address], [address] [place] [address] COMPLETE BLOOD COUNTon 10-23 Erythrocyte distribution width (RBC) [Ratio] 21.6 % High 11.5-15.0 [facility] Comment on above: Performed By: #### SANTOSH SALEEM, , 2776-10 #### [facility] ([id number]) [address], [address] [place] [address] Hematocrit (Bld) [Volume fraction] 25.8 % Low 35-47 [facility] Comment on above: Performed By: #### C SANTOSH MILLIGAN, , 2776-10 #### [facility] ([id number]) [address], [address] [place] [address] Hemoglobin (Bld) [Mass/Vol] 8.5 g/dL Low 11.7-15.5 [facility] Comment on above: Performed By: #### Timmy MILLIGAN, [facility], , 2776-10 #### [facility] ([id number]) [address], [address] [place] [address] MCH (RBC) [Entitic mass] 26.1 pg Low 27-34 [facility] Comment on above: Performed By: #### Timmy MILLIGAN, [facility], , 2776-10 #### [facility] ([id number]) [address], [address] [place] [address] MCHC (RBC) [Mass/Vol] 32.9 g/dL Normal 32-36 [facility] Comment on above: Performed By: #### SANTOSH SALEEM, , 2776-10 #### [facility] ([id number]) [address] [place] [address] MCV (RBC) [Entitic vol] 79 fL Low 80-100 [facility] Comment on above: Performed By: #### SANTOSH SALEEM, , 2776-10 #### [facility] ([id number]) [address], [address] [place] [address] Platelet mean volume (Bld) [Entitic vol] 6.7 fL Low 7-12 [facility] Comment on above: Performed By: #### Timmy MILLIGAN, BMP, , 2776-10 #### [facility] ([id number]) [address], [address] [place] [address] Platelets (Bld) [#/Vol] 551 10*3/uL High 150-450 [facility] Comment on above: Performed By: #### C SANTOSH MILLIGAN, , 2776-10 #### [facility] ([id number]) [address] [place] [address] RBC COUNT 3.26 X10E12/L Low 3.80-5.20 [facility] Comment on above: Performed By: #### C SRINI, SANTOSH, , 2776-10 #### [facility] ([id number]) [address], [address] [place] [address] WBC (Bld) [#/Vol] 10.1 10*3/uL Normal 4.0-11.0 [facility] Comment on above: Performed By: #### SANTOSH SALEEM, , 2776-10 #### [facility] ([id number]) [address], [address] [place] [address] Calcium.ionized (Bld) [Mass/ Vol]on 10-23-2023 IONIZED CALCIUM 4.9 mg/dL Normal 4.5-5.3 [facility] Comment on above: Performed By: #### SANTOSH SALEEM, , 2776-10 #### [facility] ([id number]) [address], [address] [place] [address] MAGNESIUMon 10-23-2023 Magnesium [Mass/Vol] 1.7 mg/dL Low 1.8-2.6 [facility] Comment on above: Performed By: #### SANTOSH SALEEM, , 2776-10 #### [facility] ([id number]) [address], [address] [place] [address] PHOSPHORUSon 10-23-2023 Phosphate [Mass/Vol] 5.1 mg/dL High 2.4-4.9 [facility] Comment on above: Performed By: #### SANTOSH SALEEM, , 2776-10 #### [facility] ([id number]) [address], [address] [place] [address] Rheumatoid factor Nephelomet ry Qn (S)on 10-23-2023 RHEUMATOID FACTOR <10 Normal <20 [facility] Comment on above: Performed By: #### Timmy BC, BMP, , 2776-10 #### [facility] ([id number]) [address], [address] [place] [address] BASIC METABOLIC PANLon 10-22 Anion gap [Moles/Vol] 10 mmol/L Normal 5-15 [facility] Comment on above: Performed By: #### Timmy MILLIGAN, BMP, , 2776-10 #### [facility] ([id number]) [address] [place] [address] Calcium [Mass/Vol] 8.8 mg/dL Normal 8.5-10.5 [facility] Comment on above: Performed By: #### Timmy MILLIGAN, BMP, , 2776-10 #### [facility] ([id number]) [address] [place] [address] Chloride [Moles/Vol] 104 mmol/L Normal 98-109 [facility] Comment on above: Performed By: #### Timmy MILLIGAN, BMP, , 2776-10 #### [facility] ([id number]) [address] [place] [address] CO2 [Moles/Vol] 25 mmol/L Normal 22-32 [facility] Comment on above: Performed By: #### Timmy BC, BMP, , 2776-10 #### [facility] ([id number]) [address], [address] [place] [address] Creatinine [Mass/Vol] 1.02 mg/dL High 0.40-1.00 [facility] Comment on above: Result Comment: METH OD TRACEABLE TO IDMS STANDARD Performed By: #### SANTOSH SALEEM, , 2776-10 #### [facility] ([id number]) [address], [address] [place] [address] GFR/1.73 sq M.predicted among non-blacks MDRD (S/P/Bld) [Vol rate/Area] 57 mL/min/{1.73_m2} Low >59 [facility] Comment on above: Result Comment: Reported eGFR is based on the CKD-EPI 2020 equation that does not use a race coefficient. Performed By: #### SANTOSH SALEEM, , 2776-10 #### [facility] ([id number]) [address] [place] [address] Glucose [Mass/Vol] 86 mg/dL Normal 65-99 [facility] Comment on above: Performed By: #### SANTOSH SALEEM, , 2776-10 #### [facility] ([id number]) [address], [address] [place] [address] Potassium [Moles/Vol] 4.6 mmol/L Normal 3.5-5.0 [facility] Comment on above: Performed By: #### Timmy MILLIGAN, SANTSOH, , 2776-10 #### [facility] ([id number]) [address], [address] [place] [address] Sodium [Moles/Vol] 139 mmol/L Normal 134-146 [facility] Comment on above: Performed By: #### Timmy MILLIGAN, SANTOSH, , 2776-10 #### [facility] ([id number]) [address] [place] [address] Urea nitrogen [Mass/Vol] 13 mg/dL Normal 5-27 [facility] Comment on above: Performed By: #### Timmy MILLIGAN, SANTOSH, , 2776-10 #### [facility] ([id number]) [address], [address] [place] [address] COMPLETE BLOOD COUNTon 10-22 Erythrocyte distribution width (RBC) [Ratio] 22.2 % High 11.5-15.0 [facility] Comment on above: Performed By: #### C SANTOSH MILLIGAN, , 2776-10 #### [facility] ([id number]) [address] [place] [address] Hematocrit (Bld) [Volume fraction] 25.7 % Low 35-47 [facility] Comment on above: Performed By: #### SANTOSH SALEEM, , 2776-10 #### [facility] ([id number]) [address] [place] [address] Hemoglobin (Bld) [Mass/Vol] 8.2 g/dL Low 11.7-15.5 [facility] Comment on above: Performed By: #### SANTOSH SALEEM, , 2776-10 #### [facility] ([id number]) [address] [place] [address] MCH (RBC) [Entitic mass] 26.2 pg Low 27-34 [facility] Comment on above: Performed By: #### SANTOSH SALEEM, , 2776-10 #### [facility] ([id number]) [address] [place] [address] MCHC (RBC) [Mass/Vol] 32.1 g/dL Normal 32-36 [facility] Comment on above: Performed By: #### Timmy MILLIGAN BMP, , 2776-10 #### [facility] ([id number]) [address] [place] [address] MCV (RBC) [Entitic vol] 82 fL Normal 80-100 [facility] Comment on above: Performed By: #### Timmy MILLIGAN BMP, , 2776-10 #### [facility] ([id number]) [address] [place] [address] Platelet mean volume (Bld) [Entitic vol] 6.7 fL Low 7-12 [facility] Comment on above: Performed By: #### Timmy MILLIGAN, SANTOSH, , 2776-10 #### [facility] ([id number]) [address] [place] [address] Platelets (Bld) [#/Vol] 533 10*3/uL High 150-450 [facility] Comment on above: Performed By: #### Timmy MILLIGAN, [facility], , 2776-10 #### [facility] ([id number]) [address], [facility] [address] [place] [address] RBC COUNT 3.14 X10E12/L Low 3.80-5.20 [facility] Comment on above: Performed By: #### Timmy MILLIGAN [facility], , 2776-10 #### [facility] ([id number]) [address], [facility] [address] [place] [address] WBC (Bld) [#/Vol] 9.7 10*3/uL Normal 4.0-11.0 [facility] Comment on above: Performed By: #### SANTOSH SALEEM, , 2776-10 #### [facility] ([id number]) [address] [place] [address] Calcium.ionized (Bld) [Mass/ Vol]on 10-22-2023 IONIZED CALCIUM 4.9 mg/dL Normal 4.5-5.3 [facility] Comment on above: Performed By: #### Timmy MILLIGAN, BMP, , 2776-10 #### [facility] ([id number]) [address] [place] [address] Glucose Glucometer (BldC) [M ass/Vol]on 10-22-2023 Glucose [Mass/Vol] 97 mg/dL Normal 65-99 [facility] MAGNESIUMon 10-22-2023 Magnesium [Mass/Vol] 2.1 mg/dL Normal 1.8-2.6 [facility] Comment on above: Performed By: #### SANTOSH SALEEM, , 2776-10 #### [facility] ([id number]) [address] [place] [address] PHOSPHORUSon 10-22-2023 Phosphate [Mass/Vol] 4.9 mg/dL Normal 2.4-4.9 [facility] Comment on above: Performed By: #### SANTOSH SALEEM, , 2776-10 #### [facility] ([id number]) [address] [place] [address] BASIC METABOLIC PANLon 10-21 Anion gap [Moles/Vol] 7 mmol/L Normal 5-15 [facility] Comment on above: Performed By: #### SANTOSH SALEEM, , 2776-10 ####[facility] ([id number])[address], [place] [address] Calcium [Mass/Vol] 9.0 mg/dL Normal 8.5-10.5 [facility] Comment on above: Performed By: #### SANTOSH SALEEM, , 2776-10 ####[facility] ([id number])[address], [place] [address] Chloride [Moles/Vol] 104 mmol/L Normal 98-109 [facility] Comment on above: Performed By: #### SANTOSH SALEEM, , 2776-10 ####[facility] ([id number])[address], [place] [address] CO2 [Moles/Vol] 26 mmol/L Normal 22-32 [facility] Comment on above: Performed By: #### C SRINI, [facility], , 2776-10 ####[facility] ([id number])[address] [address] [place] [address] Creatinine [Mass/Vol] 1.06 mg/dL High 0.40-1.00 [facility] Comment on above: Result Comment: METH OD TRACEABLE TO IDMS STANDARD Performed By: #### C SRINI [facility], , 2776-10 ####[facility] ([id number])[address] [address], [place] [address] GFR/1.73 sq M.predicted among non-blacks MDRD (S/P/Bld) [Vol rate/Area] 54 mL/min/{1.73_m2} Low >59 [facility] Comment on above: Result Comment: Reported eGFR is based on the CKD-EPI 2020 equation that does not use a race coefficient. Performed By: #### C SRINI [facility], , 2776-10 ####[facility] ([id number])[address] [address], [place] [address] Glucose [Mass/Vol] 88 mg/dL Normal 65-99 [facility] Comment on above: Performed By: #### SANTOSH SALEEM, , 2776-10 ####[facility] ([id number])[address] [address], [place] [address] Potassium [Moles/Vol] 4.5 mmol/L Normal 3.5-5.0 [facility] Comment on above: Performed By: #### C SRINI, SANTOSH, , 2776-10 ####[facility] ([id number])[address] [address], [place] [address] Sodium [Moles/Vol] 137 mmol/L Normal 134-146 [facility] Comment on above: Performed By: #### C SANTOSH MILLIGAN, 19530-027[address]-10 ####[facility] ([id number])[address], [place] [address] Urea nitrogen [Mass/Vol] 12 mg/dL Normal 5-27 [facility] Comment on above: Performed By: #### C SRINI, [facility], , 2776-10 ####[facility] ([id number])[address], [place] [address] COMPLETE BLOOD COUNTon 10-21 Erythrocyte distribution width (RBC) [Ratio] 22.0 % High 11.5-15.0 [facility] Comment on above: Performed By: #### C SRINI, [facility], , 2776-10 ####[facility] ([id number])[address] [address], [place] [address] Hematocrit (Bld) [Volume fraction] 26.3 % Low 35-47 [facility] Comment on above: Performed By: #### Timmy MILLIGAN, [facility], , 2776-10 ####[facility] ([id number])[address] [address], [place] [address] Hemoglobin (Bld) [Mass/Vol] 8.5 g/dL Low 11.7-15.5 [facility] Comment on above: Performed By: #### Timmy MILLIGAN, [facility], , 2776-10 ####[facility] ([id number])[address] [address], [place] [address] MCH (RBC) [Entitic mass] 26.2 pg Low 27-34 [facility] Comment on above: Performed By: #### Timmy BC, [facility], , 2776-10 ####[facility] ([id number])[address] [address] [place] [address] MCHC (RBC) [Mass/Vol] 32.4 g/dL Normal 32-36 [facility] Comment on above: Performed By: #### Timmy MILLIGAN, [facility], , 2776-10 ####[facility] ([id number])[address], [place] [address] MCV (RBC) [Entitic vol] 81 fL Normal 80-100 [facility] Comment on above: Performed By: #### Timmy MILLIGAN, [facility], , 2776-10 ####[facility] ([id number])[address], [place] [address] Platelet mean volume (Bld) [Entitic vol] 6.8 fL Low 7-12 [facility] Comment on above: Performed By: #### Timmy MILLIGAN, [facility], , 2776-10 ####[facility] ([id number])[address], [place] [address] Platelets (Bld) [#/Vol] 611 10*3/uL High 150-450 [facility] Comment on above: Performed By: #### Timmy MILLIGAN, [facility], , 2776-10 ####[facility] ([id number])[address], [place] [address] RBC COUNT 3.25 X10E12/L Low 3.80-5.20 [facility] Comment on above: Performed By: #### Timmy MILLIGAN, SANTOSH, , 2776-10 ####[facility] ([id number])[address], [place] [address] WBC (Bld) [#/Vol] 10.0 10*3/uL Normal 4.0-11.0 [facility] Comment on above: Performed By: #### Timmy MILLIGAN, BMP, , 2776-10 ####[facility] ([id number])[address], [place] [address] CRP [Mass/Vol]on 10-21-2023 C REACTIVE PROTEIN 6.5 mg/dL High 0.000-0.7 4 4 [facility] Comment on above: Performed By: #### 3 8230-9 #### [facility] ([id number]) [address], [address] [place] [address] Calcium.ionized (Bld) [Mass/ Vol]on 10-21-2023 IONIZED CALCIUM 4.9 mg/dL Normal 4.5-5.3 [facility] Comment on above: Performed By: #### 3 8230-9 #### [facility] ([id number]) [address] [place] [address] ESR Photometric method (Bld) [Velocity]on 10-21-2023 ESR, ERYTHROCYTE SEDIMENTATION RATE 74 mm/h High 0-30 [facility] Comment on above: Performed By: #### 3 8230-9 #### [facility] ([id number]) [address] [place] [address] Glucose Glucometer (BldC) [M ass/Vol]on 10-21-2023 Glucose [Mass/Vol] 124 mg/dL High 65-99 [facility] Glucose [Mass/Vol] 135 mg/dL High 65-99 [facility] Glucose [Mass/Vol] 126 mg/dL High 65-99 [facility] Glucose [Mass/Vol] 91 mg/dL Normal 65-99 [facility] MAGNESIUMon 10-21-2023 Magnesium [Mass/Vol] 2.6 mg/dL Normal 1.8-2.6 [facility] Comment on above: Performed By: #### 3 8230-9 #### [facility] ([id number]) [address], [address] [place] [address] Magnesium [Mass/Vol] 1.9 mg/dL Normal 1.8-2.6 [facility] Comment on above: Performed By: #### C BC, BMP, 07833-6, 2777-1 ####[facility] ([id number])[address], [address], [place] [address] PHOSPHORUSon 10-21-2023 Phosphate [Mass/Vol] 4.3 mg/dL Normal 2.4-4.9 [facility] Comment on above: Performed By: #### 3 8230-9 #### [facility] ([id number]) [address], [address] [place] [address] XR WRIST LT MIN 3 VWSon 09-28 [...] Morin MD on 10/21/2023 10:28 AM Normal [facility] BASIC METABOLIC PANLon 10-20 Anion gap [Moles/Vol] 7 mmol/L Normal 5-15 [facility] Comment on above: Performed By: #### C SRINI, BMP, , 2776-10 ####[facility] ([id number])[address], [address] [place] [address] Calcium [Mass/Vol] 8.6 mg/dL Normal 8.5-10.5 [facility] Comment on above: Performed By: #### C SRINI, BMP, , 2777-1 ####[facility] ([id number])[address], [address] [place] [address] Chloride [Moles/Vol] 107 mmol/L Normal 98-109 [facility] Comment on above: Performed By: #### C BC, BMP, , 2777-1 ####[facility] ([id number])[address], [place] [address] CO2 [Moles/Vol] 25 mmol/L Normal 22-32 [facility] Comment on above: Performed By: #### SANTOSH SALEEM, , 2776-10 ####[facility] ([id number])[address] [address] [place] [address] Creatinine [Mass/Vol] 1.16 mg/dL High 0.40-1.00 [facility] Comment on above: Result Comment: METH OD TRACEABLE TO IDMS STANDARD Performed By: #### C SANTOSH MILLIGAN, , 2776-10 ####[facility] ([id number])[address] [address], [place] [address] GFR/1.73 sq M.predicted among non-blacks MDRD (S/P/Bld) [Vol rate/Area] 49 mL/min/{1.73_m2} Low >59 [facility] Comment on above: Result Comment: Reported eGFR is based on the CKD-EPI 2020 equation that does not use a race coefficient. Performed By: #### SANTOSH SALEEM, , 2776-10 ####[facility] ([id number])[address] [address], [place] [address] Glucose [Mass/Vol] 80 mg/dL Normal 65-99 [facility] Comment on above: Performed By: #### SNATOSH SALEEM, , 2776-10 ####[facility] ([id number])[address] [address] [place] [address] Potassium [Moles/Vol] 4.6 mmol/L Normal 3.5-5.0 [facility] Comment on above: Performed By: #### SANTOSH SALEEM, 2776-10 ####[facility] ([id number])[address] [address] [place] [address] Sodium [Moles/Vol] 139 mmol/L Normal 134-146 [facility] Comment on above: Performed By: #### C BC, [facility], , 2776-10 ####[facility] ([id number])[address] [address] Urea nitrogen [Mass/Vol] 12 mg/dL Normal 5-27 [facility] Comment on above: Performed By: #### Timmy BC, [facility], , 2776-10 ####[facility] ([id number])[address] [address] COMPLETE BLOOD COUNTon 10-20 Erythrocyte distribution width (RBC) [Ratio] 22.5 % High 11.5-15.0 [facility] Comment on above: Performed By: #### Timmy MILLIGAN, [facility], , 2776-10 ####[facility] ([id number])[address] [address] Hematocrit (Bld) [Volume fraction] 24.8 % Low 35-47 [facility] Comment on above: Performed By: #### Timmy MILLIGAN, [facility], , 2776-10 ####[facility] ([id number])[address] [address] Hemoglobin (Bld) [Mass/Vol] 8.1 g/dL Low 11.7-15.5 [facility] Comment on above: Performed By: #### Timmy BC, [facility], , 2776-10 ####[facility] ([id number])[address] [address] MCH (RBC) [Entitic mass] 26.2 pg Low 27-34 [facility] Comment on above: Performed By: #### Timmy BC, BMP, , 2776-10 ####[facility] ([id number])[address] [address] MCHC (RBC) [Mass/Vol] 32.4 g/dL Normal 32-36 [facility] Comment on above: Performed By: #### SANTOSH SALEEM, , 2776-10 ####[facility] ([id number])[address] [address] MCV (RBC) [Entitic vol] 81 fL Normal 80-100 [facility] Comment on above: Performed By: #### SANTOSH SALEEM, , 2776-10 ####[facility] ([id number])[address], [address] [address] Platelet mean volume (Bld) [Entitic vol] 6.7 fL Low 7-12 [facility] Comment on above: Performed By: #### SANTOSH SALEEM, , 2776-10 ####[facility] ([id number])[address] [address] Platelets (Bld) [#/Vol] 554 10*3/uL High 150-450 [facility] Comment on above: Performed By: #### SANTOSH SALEEM, , 2776-10 ####[facility] ([id number])[address] [address] RBC COUNT 3.08 X10E12/L Low 3.80-5.20 [facility] Comment on above: Performed By: #### SANTOSH SALEEM, , 2776-10 ####[facility] ([id number])[address] [address] WBC (Bld) [#/Vol] 9.3 10*3/uL Normal 4.0-11.0 [facility] Comment on above: Performed By: #### SANTOSH SALEEM, , 2776-10 ####[facility] ([id number])[address], [place] [address] Glucose Glucometer (BldC) [M ass/Vol]on 10-20-2023 Glucose [Mass/Vol] 108 mg/dL High 65-99 [facility] Glucose [Mass/Vol] 115 mg/dL High 65-99 [facility] Glucose [Mass/Vol] 140 mg/dL High 65-99 [facility] Glucose [Mass/Vol] 94 mg/dL Normal 65-99 [facility] MAGNESIUMon 10-20-2023 Magnesium [Mass/Vol] 1.7 mg/dL Low 1.8-2.6 [facility] Comment on above: Performed By: #### SANTOSH SALEEM, , 2776-10 ####[facility] ([id number])[address], [place] [address] PHOSPHORUSon 10-20-2023 Phosphate [Mass/Vol] 4.2 mg/dL Normal 2.4-4.9 [facility] Comment on above: Performed By: #### SANTOSH SALEEM, , 2776-10 ####[facility] ([id number])[address] [place] [address] BASIC METABOLIC PANLon 10-19 Anion gap [Moles/Vol] 8 mmol/L Normal 5-15 [facility] Comment on above: Performed By: #### SANTOSH SALEEM, , 2776-10 ####[facility] ([id number])[address] [place] [address] Calcium [Mass/Vol] 8.3 mg/dL Low 8.5-10.5 [facility] Comment on above: Performed By: #### SANTOSH SALEEM, , 2776-10 ####[facility] ([id number])[address] [place] [address] Chloride [Moles/Vol] 107 mmol/L Normal 98-109 [facility] Comment on above: Performed By: #### C SANOTSH MILLIGAN, , 2776-10 ####[facility] ([id number])[address], [address], [place] [address] CO2 [Moles/Vol] 24 mmol/L Normal 22-32 [facility] Comment on above: Performed By: #### C SANTOSH MILLIGAN, , 2776-10 ####[facility] ([id number])[address] [place] [address] Creatinine [Mass/Vol] 1.05 mg/dL High 0.40-1.00 [facility] Comment on above: Result Comment: METH OD TRACEABLE TO IDMS STANDARD Performed By: #### C SANTOSH MILLIGAN, , 2776-10 ####[facility] ([id number])[address], [place] [address] GFR/1.73 sq M.predicted among non-blacks MDRD (S/P/Bld) [Vol rate/Area] 55 mL/min/{1.73_m2} Low >59 [facility] Comment on above: Result Comment: Reported eGFR is based on the CKD-EPI 2020 equation that does not use a race coefficient. Performed By: #### C SANTOSH MILLIGAN, , 2776-10 ####[facility] ([id number])[address] [address] [place] [address] Glucose [Mass/Vol] 82 mg/dL Normal 65-99 [facility] Comment on above: Performed By: #### C SANTOSH MILLIGAN, , 2776-10 ####[facility] ([id number])[address], [address], [place] [address] Potassium [Moles/Vol] 4.3 mmol/L Normal 3.5-5.0 [facility] Comment on above: Performed By: #### C SRINI, [facility], , 2776-10 ####[facility] ([id number])[address], [address], [place] [address] Sodium [Moles/Vol] 139 mmol/L Normal 134-146 [facility] Comment on above: Performed By: #### C , [facility], , 2776-10 ####[facility] ([id number])[address] [address], [place] [address] Urea nitrogen [Mass/Vol] 10 mg/dL Normal 5-27 [facility] Comment on above: Performed By: #### C SRINI, [facility], , 2776-10 ####[facility] ([id number])[address], [place] [address] COMPLETE BLOOD COUNTon 10-19 Erythrocyte distribution width (RBC) [Ratio] 22.7 % High 11.5-15.0 [facility] Comment on above: Performed By: #### C SRINI, [facility], , 2776-10 ####[facility] ([id number])[address] [address], [place] [address] Hematocrit (Bld) [Volume fraction] 24.4 % Low 35-47 [facility] Comment on above: Performed By: #### C SRINI, [facility], , 2776-10 ####[facility] ([id number])[address] [address], [place] [address] Hemoglobin (Bld) [Mass/Vol] 7.8 g/dL Low 11.7-15.5 [facility] Comment on above: Performed By: #### C BC, BMP, , 2776-10 ####[facility] ([id number])[address] [address], [place] [address] MCH (RBC) [Entitic mass] 25.9 pg Low 27-34 [facility] Comment on above: Performed By: #### Timmy MILLIGAN, SANTOSH, , 2776-10 ####[facility] ([id number])[address], [address], [place] [address] MCHC (RBC) [Mass/Vol] 31.8 g/dL Low 32-36 [facility] Comment on above: Performed By: #### Timmy MILLIGAN, SANTOSH, , 2776-10 ####[facility] ([id number])[address], [place] [address] MCV (RBC) [Entitic vol] 82 fL Normal 80-100 [facility] Comment on above: Performed By: #### Timmy MILLIGAN, SANTOSH, , 2776-10 ####[facility] ([id number])[address], [address], [place] [address] Platelet mean volume (Bld) [Entitic vol] 6.6 fL Low 7-12 [facility] Comment on above: Performed By: #### SANTOSH SALEEM, , 2776-10 ####[facility] ([id number])[address], [address] [place] [address] Platelets (Bld) [#/Vol] 533 10*3/uL High 150-450 [facility] Comment on above: Performed By: #### SANTOSH SALEEM, , 2776-10 ####[facility] ([id number])[address], [place] [address] RBC COUNT 2.99 X10E12/L Low 3.80-5.20 [facility] Comment on above: Performed By: #### Timmy MILLIGAN, SANTOSH, , 2776-10 ####[facility] ([id number])[address], [place] [address] WBC (Bld) [#/Vol] 9.9 10*3/uL Normal 4.0-11.0 [facility] Comment on above: Performed By: #### C SANTOSH MILLIGAN, , 2776-10 ####[facility] ([id number])[address], [address] [place] [address] Calcium.ionized (Bld) [Mass/ Vol]on 10-19-2023 IONIZED CALCIUM 4.9 mg/dL Normal 4.5-5.3 [facility] Comment on above: Performed By: #### 3 8230-9 ####[facility] ([id number])[address] [place] [address] Glucose Glucometer (BldC) [M ass/Vol]on 10-19-2023 Glucose [Mass/Vol] 102 mg/dL High 65-99 [facility] Glucose [Mass/Vol] 117 mg/dL High 65-99 [facility] Glucose [Mass/Vol] 103 mg/dL High 65-99 [facility] MAGNESIUMon 10-19-2023 Magnesium [Mass/Vol] 2.0 mg/dL Normal 1.8-2.6 [facility] Comment on above: Performed By: #### C SANTOSH MILLIGAN, , 2776-10 ####[facility] ([id number])[address], [address] [place] [address] PHOSPHORUSon 10-19-2023 Phosphate [Mass/Vol] 4.3 mg/dL Normal 2.4-4.9 [facility] Comment on above: Performed By: #### C SANTOSH MILLIGAN, , 2776-10 ####[facility] ([id number])[address] [place] [address] BASIC METABOLIC PANLon 10-18 Anion gap [Moles/Vol] 10 mmol/L Normal 5-15 [facility] Comment on above: Performed By: #### C SANTOSH MILLIGAN, , 2776-10, 3083-10 ####[facility] ([id number])[address] [address], [place] [address] Calcium [Mass/Vol] 8.5 mg/dL Normal 8.5-10.5 [facility] Comment on above: Performed By: #### C BC, BMP, , 2776-10, 3083-1 ####[facility] ([id number])[address] [address] Chloride [Moles/Vol] 107 mmol/L Normal 98-109 [facility] Comment on above: Performed By: #### C SRINI, BMP, , 2776-10, 3083- ####[facility] ([id number])[address] [address] CO2 [Moles/Vol] 23 mmol/L Normal 22-32 [facility] Comment on above: Performed By: #### C SRINI, BMP, , 2776-10, 3083- ####[facility] ([id number])[address] [address] Creatinine [Mass/Vol] 1.17 mg/dL High 0.40-1.00 [facility] Comment on above: Result Comment: METH OD TRACEABLE TO IDMS STANDARD Performed By: #### Timmy BC, BMP, , 2776-10, 3083-10 ####[facility] ([id number])[address] [address] GFR/1.73 sq M.predicted among non-blacks MDRD (S/P/Bld) [Vol rate/Area] 48 mL/min/{1.73_m2} Low >59 [facility] Comment on above: Result Comment: Reported eGFR is based on the CKD-EPI 2020 equation that does not use a race coefficient. Performed By: #### C BC, BMP, , 2776-10, 3083- ####[facility] ([id number])[address] [address], [place] [address] Glucose [Mass/Vol] 82 mg/dL Normal 65-99 [facility] Comment on above: Performed By: #### C BC, BMP, , 2776-10, 3083- ####[facility] ([id number])[address] [address], [place] [address] Potassium [Moles/Vol] 4.0 mmol/L Normal 3.5-5.0 [facility] Comment on above: Performed By: #### C BC, BMP, , 2776-10, 3083- ####[facility] ([id number])[address] [address], [place] [address] Sodium [Moles/Vol] 140 mmol/L Normal 134-146 [facility] Comment on above: Performed By: #### C BC, BMP, , 2776-10, 3083- ####[facility] ([id number])[address] [address], [place] [address] Urea nitrogen [Mass/Vol] 11 mg/dL Normal 5-27 [facility] Comment on above: Performed By: #### C BC, BMP, , 2776-10, 3083- ####[facility] ([id number])[address] [address], [place] [address] COMPLETE BLOOD COUNTon 10-18 Erythrocyte distribution width (RBC) [Ratio] 21.2 % High 11.5-15.0 [facility] Comment on above: Performed By: #### C BC, BMP, , 2776-10, 3083-1 ####[facility] ([id number])[address] [address] Hematocrit (Bld) [Volume fraction] 24.6 % Low 35-47 [facility] Comment on above: Performed By: #### C SRINI, BMP, , 2776-10, 3083-10 ####[facility] ([id number])[address], [address] [place] [address] Hemoglobin (Bld) [Mass/Vol] 7.9 g/dL Low 11.7-15.5 [facility] Comment on above: Performed By: #### C SRINI, BMP, , 2776-10, 3083-10 ####[facility] ([id number])[address], [address] [place] [address] MCH (RBC) [Entitic mass] 26.2 pg Low 27-34 [facility] Comment on above: Performed By: #### Timmy MILLIGAN, BMP, , 2776-10, 3083-10 ####[facility] ([id number])[address], [address] [place] [address] MCHC (RBC) [Mass/Vol] 32.2 g/dL Normal 32-36 [facility] Comment on above: Performed By: #### Timmy MILLIGAN, BMP, , 2776-10, 3083-10 ####[facility] ([id number])[address], [address] [place] [address] MCV (RBC) [Entitic vol] 81 fL Normal 80-100 [facility] Comment on above: Performed By: #### Timmy BC, BMP, , 2776-10, 3083-10 ####[facility] ([id number])[address], [address] [place] [address] Platelet mean volume (Bld) [Entitic vol] 6.5 fL Low 7-12 [facility] Comment on above: Performed By: #### Timmy BC, BMP, , 2776-10, 3083-10 ####[facility] ([id number])[address], [address] [place] [address] Platelets (Bld) [#/Vol] 522 10*3/uL High 150-450 [facility] Comment on above: Performed By: #### C BC, BMP, , 2776-10, 3083-10 ####[facility] ([id number])[address], [address] [place] [address] RBC COUNT 3.03 X10E12/L Low 3.80-5.20 [facility] Comment on above: Performed By: #### C BC, BMP, , 2776-10, 3083-10 ####[facility] ([id number])[address], [address] [place] [address] WBC (Bld) [#/Vol] 9.3 10*3/uL Normal 4.0-11.0 [facility] Comment on above: Performed By: #### C SRINI, BMP, , 2776-10, 3083-10 ####[facility] ([id number])[address] [address] [place] [address] Calcium.ionized (Bld) [Mass/ Vol]on 10-18-2023 IONIZED CALCIUM 4.9 mg/dL Normal 4.5-5.3 [facility] Comment on above: Performed By: #### 3 8230-9 ####[facility] ([id number])[address] [address] [place] [address] Glucose Glucometer (BldC) [M ass/Vol]on 10-18-2023 Glucose [Mass/Vol] 108 mg/dL High 65-99 [facility] Glucose [Mass/Vol] 134 mg/dL High 65-99 [facility] Glucose [Mass/Vol] 127 mg/dL High 65-99 [facility] Glucose [Mass/Vol] 102 mg/dL High 65-99 [facility] MAGNESIUMon 10-18-2023 Magnesium [Mass/Vol] 1.7 mg/dL Low 1.8-2.6 [facility] Comment on above: Performed By: #### C BC, BMP, 24287-3, 2777-1, 3084-1 ####[facility] ([id number])[address], [address] [place], [place] [address] MR CERVICAL SPINE WO CONTon 10-18-2023 MR [...] William MD on 10/18/2023 2:39 AM Normal [facility] MR LUMBAR SPINE WO CONTon MR [...] William MD on 10/18/2023 3:37 AM Normal [facility] MR THORACIC SPINE WO CONTon 10-18-2023 [...] William MD on 10/18/2023 3:25 AM Normal [facility] PHOSPHORUSon 10-18-2023 Phosphate [Mass/Vol] 4.1 mg/dL Normal 2.4-4.9 [facility] Comment on above: Performed By: #### C BC, BMP, [address]65[address]-0, 2777-1, 3084-1 ####[facility] ([id number])[address], [address] [place] [address] URIC ACIDon 10-18-2023 Urate [Mass/Vol] 4.7 mg/dL Normal 2.6-7.[address] [facility] Comment on above: Performed By: #### C BC, BMP, 704[address]-2, 2777-1, 3084-1 ####[facility] ([id number])[address], [address] [place] [address] XR WRIST RT 2 VWSon 10-18-20 23 [...] Rod MD on 10/18/2023 2:24 PM Normal [facility] BASIC METABOLIC PANLon 10-17 Anion gap [Moles/Vol] 8 mmol/L Normal 5-15 [facility] Comment on above: Performed By: #### 1 7928-3 #### [facility] ([id number]) [address] [place] [address] Calcium [Mass/Vol] 8.5 mg/dL Normal 8.5-10.5 [facility] Comment on above: Performed By: #### 1 7928-3 #### [facility] ([id number]) [address] [place] [address] Chloride [Moles/Vol] 105 mmol/L Normal 98-109 [facility] Comment on above: Performed By: #### 1 7928-3 #### [facility] ([id number]) [address] [place] [address] CO2 [Moles/Vol] 24 mmol/L Normal 22-32 [facility] Comment on above: Performed By: #### 1 7928-3 #### [facility] ([id number]) [address], [address] [place] [address] Creatinine [Mass/Vol] 1.03 mg/dL High 0.40-1.00 [facility] Comment on above: Result Comment: METH OD TRACEABLE TO IDMS STANDARD Performed By: #### 1 7928-3 #### [facility] ([id number]) [address], [address] [place] [address] GFR/1.73 sq M.predicted among non-blacks MDRD (S/P/Bld) [Vol rate/Area] 56 mL/min/{1.73_m2} Low >59 [facility] Comment on above: Result Comment: Reported eGFR is based on the CKD-EPI 2020 equation that does not use a race coefficient. Performed By: #### 1 7928-3 #### [facility] ([id number]) [address], [address] [place] [address] Glucose [Mass/Vol] 88 mg/dL Normal 65-99 [facility] Comment on above: Performed By: #### 1 7928-3 #### [facility] ([id number]) [address], [address] [place] [address] Potassium [Moles/Vol] 4.2 mmol/L Normal 3.5-5.0 [facility] Comment on above: Performed By: #### 1 7928-3 #### [facility] ([id number]) [address], [address] [place] [address] Sodium [Moles/Vol] 137 mmol/L Normal 134-146 [facility] Comment on above: Performed By: #### 1 7928-3 #### [facility] ([id number]) [address], [address] [place] [address] Urea nitrogen [Mass/Vol] 13 mg/dL Normal 5-27 [facility] Comment on above: Performed By: #### 1 7928-3 #### [facility] ([id number]) [address] [place] [address] COMPLETE BLOOD COUNTon 10-17 Erythrocyte distribution width (RBC) [Ratio] 21.4 % High 11.5-15.0 [facility] Comment on above: Performed By: #### 1 7928-3 #### [facility] ([id number]) [address], [address] [place] [address] Hematocrit (Bld) [Volume fraction] 25.0 % Low 35-47 [facility] Comment on above: Performed By: #### 1 7928-3 #### [facility] ([id number]) [address], [address] [place] [address] Hemoglobin (Bld) [Mass/Vol] 7.9 g/dL Low 11.7-15.5 [facility] Comment on above: Performed By: #### 1 7928-3 #### [facility] ([id number]) [address], [address] [place] [address] MCH (RBC) [Entitic mass] 25.4 pg Low 27-34 [facility] Comment on above: Performed By: #### 1 7928-3 #### [facility] ([id number]) [address], [address] [place] [address] MCHC (RBC) [Mass/Vol] 31.4 g/dL Low 32-36 [facility] Comment on above: Performed By: #### 1 7928-3 #### [facility] ([id number]) [address], [facility] [address] [place] [address] MCV (RBC) [Entitic vol] 81 fL Normal 80-100 [facility] Comment on above: Performed By: #### 1 7928-3 #### [facility] ([id number]) [address], [facility] [address] [place] [address] Platelet mean volume (Bld) [Entitic vol] 6.6 fL Low 7-12 [facility] Comment on above: Performed By: #### 1 7928-3 #### [facility] ([id number]) [address], [facility] [address] [place] [address] Platelets (Bld) [#/Vol] 519 10*3/uL High 150-450 [facility] Comment on above: Performed By: #### 1 7928-3 #### [facility] ([id number]) [address], [address] [place] [address] RBC COUNT 3.09 X10E12/L Low 3.80-5.20 [facility] Comment on above: Performed By: #### 1 7928-3 #### [facility] ([id number]) [address], [address] [place] [address] WBC (Bld) [#/Vol] 10.7 10*3/uL Normal 4.0-11.0 [facility] Comment on above: Performed By: #### 1 7928-3 #### [facility] ([id number]) [address], [address] [place] [address] Calcium.ionized (Bld) [Mass/ Vol]on 10-17-2023 IONIZED CALCIUM 4.8 mg/dL Normal 4.5-5.3 [facility] Comment on above: Performed By: #### 1 7928-3 #### [facility] ([id number]) [address], [address] [place] [address] Glucose Glucometer (BldC) [M ass/Vol]on 10-17-2023 Glucose [Mass/Vol] 106 mg/dL High 65-99 [facility] Glucose [Mass/Vol] 96 mg/dL Normal 65-99 [facility] Glucose [Mass/Vol] 123 mg/dL High 65-99 [facility] Glucose [Mass/Vol] 88 mg/dL Normal 65-99 [facility] MAGNESIUMon 10-17-2023 Magnesium [Mass/Vol] 2.1 mg/dL Normal 1.8-2.6 [facility] Comment on above: Performed By: #### 1 7928-3 #### [facility] ([id number]) [address], [address] [place] [address] PHOSPHORUSon 10-17-2023 Phosphate [Mass/Vol] 3.8 mg/dL Normal 2.4-4.9 [facility] Comment on above: Result Comment: SPEC IMEN HEMOLYZED, RESULTS INCREASED SLIGHTLY HEMOLYZED Performed By: #### 1 7928-3 #### [facility] ([id number]) [address] [place] [address] BASIC METABOLIC PANLon 10-16 Anion gap [Moles/Vol] 10 mmol/L Normal 5-15 [facility] Comment on above: Performed By: #### E LEC #### [facility] ([id number]) [address], [address] [place] [address] Calcium [Mass/Vol] 9.0 mg/dL Normal 8.5-10.5 [facility] Comment on above: Performed By: #### E LEC #### [facility] ([id number]) [address] [place] [address] Chloride [Moles/Vol] 106 mmol/L Normal 98-109 [facility] Comment on above: Performed By: #### E LEC #### [facility] ([id number]) [address] [place] [address] CO2 [Moles/Vol] 22 mmol/L Normal 22-32 [facility] Comment on above: Performed By: #### E LEC #### [facility] ([id number]) [address], [address] [place] [address] Creatinine [Mass/Vol] 1.03 mg/dL High 0.40-1.00 [facility] Comment on above: Result Comment: METH OD TRACEABLE TO IDMS STANDARD Performed By: #### E LEC #### [facility] ([id number]) [address] [place] [address] GFR/1.73 sq M.predicted among non-blacks MDRD (S/P/Bld) [Vol rate/Area] 56 mL/min/{1.73_m2} Low >59 [facility] Comment on above: Result Comment: Reported eGFR is based on the CKD-EPI 2020 equation that does not use a race coefficient. Performed By: #### E LEC #### [facility] ([id number]) [address], [address] [place] [address] Glucose [Mass/Vol] 87 mg/dL Normal 65-99 [facility] Comment on above: Performed By: #### E LEC #### [facility] ([id number]) [address], [address] [place] [address] Potassium [Moles/Vol] 4.4 mmol/L Normal 3.5-5.0 [facility] Comment on above: Performed By: #### E LEC #### [facility] ([id number]) [address] [place] [address] Sodium [Moles/Vol] 138 mmol/L Normal 134-146 [facility] Comment on above: Performed By: #### E LEC #### [facility] ([id number]) [address], [address] [place] [address] Urea nitrogen [Mass/Vol] 13 mg/dL Normal 5-27 [facility] Comment on above: Performed By: #### E LEC #### [facility] ([id number]) [address] [address] CK [Catalytic activity/Vol]o n 10-16-2023 CPK 35 U/L Normal 24-170 [facility] Comment on above: Performed By: #### 1 7928-3 #### [facility] ([id number]) [address] [place] [address] COMPLETE BLOOD COUNTon 10-16 Erythrocyte distribution width (RBC) [Ratio] 20.1 % High 11.5-15.0 [facility] Comment on above: Performed By: #### E LEC #### [facility] ([id number]) [address] [address] [place] [address] Hematocrit (Bld) [Volume fraction] 26.5 % Low 35-47 [facility] Comment on above: Performed By: #### E LEC #### [facility] ([id number]) [address] [address] [place] [address] Hemoglobin (Bld) [Mass/Vol] 8.5 g/dL Low 11.7-15.5 [facility] Comment on above: Performed By: #### E LEC #### [facility] ([id number]) [address], [address] [place] [address] MCH (RBC) [Entitic mass] 25.9 pg Low 27-34 [facility] Comment on above: Performed By: #### E LEC #### [facility] ([id number]) [address], [address] [place] [address] MCHC (RBC) [Mass/Vol] 32.1 g/dL Normal 32-36 [facility] Comment on above: Performed By: #### E LEC #### [facility] ([id number]) [address], [address] [place] [address] MCV (RBC) [Entitic vol] 81 fL Normal 80-100 [facility] Comment on above: Performed By: #### E LEC #### [facility] ([id number]) [address], [address] [place] [address] Platelet mean volume (Bld) [Entitic vol] 6.8 fL Low 7-12 [facility] Comment on above: Performed By: #### E LEC #### [facility] ([id number]) [address] [place] [address] Platelets (Bld) [#/Vol] 633 10*3/uL High 150-450 [facility] Comment on above: Performed By: #### E LEC #### [facility] ([id number]) [address], [address] [place] [address] RBC COUNT 3.28 X10E12/L Low 3.80-5.20 [facility] Comment on above: Performed By: #### E LEC #### [facility] ([id number]) [address], [address] [place] [address] WBC (Bld) [#/Vol] 16.2 10*3/uL High 4.0-11.0 [facility] Comment on above: Performed By: #### E LEC #### [facility] ([id number]) [address] [place] [address] Calcium.ionized (Bld) [Mass/ Vol]on 10-16-2023 IONIZED CALCIUM 5.0 mg/dL Normal 4.5-5.3 [facility] Comment on above: Performed By: #### E LEC #### [facility] ([id number]) [address] [place] [address] Glucose Glucometer (BldC) [M ass/Vol]on 10-16-2023 Glucose [Mass/Vol] 119 mg/dL High 65-99 [facility] Glucose [Mass/Vol] 128 mg/dL High 65-99 [facility] Glucose [Mass/Vol] 125 mg/dL High 65-99 [facility] Glucose [Mass/Vol] 88 mg/dL Normal 65-99 [facility] LIVER PANELon 10-16-2023 Albumin [Mass/Vol] 2.6 g/dL Low 3.2-5.3 [facility] Comment on above: Performed By: #### 1 7928-3 #### [facility] ([id number]) [address], [address] [place] [address] ALP [Catalytic activity/Vol] 104 U/L Normal 39-130 [facility] Comment on above: Performed By: #### 1 7928-3 #### [facility] ([id number]) [address], [address] [place] [address] ALT [Catalytic activity/Vol] 6 U/L Normal 0-31 [facility] Comment on above: Performed By: #### 1 7928-3 #### [facility] ([id number]) [address], [address] [place] [address] AST [Catalytic activity/Vol] 16 U/L Normal 0-41 [facility] Comment on above: Performed By: #### 1 7928-3 #### [facility] ([id number]) [address], [address] [place] [address] Bilirubin [Mass/Vol] 0.3 mg/dL Normal 0.3-1.2 [facility] Comment on above: Performed By: #### 1 7928-3 #### [facility] ([id number]) [address], [address] [place] [address] Bilirubin.direct [Mass/Vol] 0.1 mg/dL Normal 0.0-0.4 [facility] Comment on above: Performed By: #### 1 7928-3 #### [facility] ([id number]) [address], [address] [place] [address] Protein [Mass/Vol] 6.9 g/dL Normal 6.0-8.0 [facility] Comment on above: Performed By: #### 1 7928-3 #### [facility] ([id number]) [address], [address] [place] [address] MAGNESIUMon 10-16-2023 Magnesium [Mass/Vol] 2.9 mg/dL High 1.8-2.6 [facility] Comment on above: Performed By: #### E LEC #### [facility] ([id number]) [address] [place] [address] PHOSPHORUSon 10-16-2023 Phosphate [Mass/Vol] 4.3 mg/dL Normal 2.4-4.9 [facility] Comment on above: Performed By: #### 1 7928-3 #### [facility] ([id number]) [address] [place] [address] BASIC METABOLIC PANLon 10-15 Anion gap [Moles/Vol] 9 mmol/L Normal 5-15 [facility] Comment on above: Performed By: #### C BC, BMP, 14072-7, 2777-1 #### [facility] ([id number]) [address], [address] [place] [address] Calcium [Mass/Vol] 9.4 mg/dL Normal 8.5-10.5 [facility] Comment on above: Performed By: #### SANTOSH SALEEM, , 2776-10 #### [facility] ([id number]) [address], [address] [place] [address] Chloride [Moles/Vol] 103 mmol/L Normal 98-109 [facility] Comment on above: Performed By: #### SANTOSH SALEEM, , 2776-10 #### [facility] ([id number]) [address], [address] [place] [address] CO2 [Moles/Vol] 23 mmol/L Normal 22-32 [facility] Comment on above: Performed By: #### SANTOSH SALEEM, , 2776-10 #### [facility] ([id number]) [address] [place] [address] Creatinine [Mass/Vol] 0.94 mg/dL Normal 0.40-1.00 [facility] Comment on above: Result Comment: METH OD TRACEABLE TO IDMS STANDARD Performed By: #### SANTOSH SALEEM, , 2776-10 #### [facility] ([id number]) [address] [place] [address] GFR/1.73 sq M.predicted among non-blacks MDRD (S/P/Bld) [Vol rate/Area] 62 mL/min/{1.73_m2} Normal >59 [facility] Comment on above: Result Comment: Reported eGFR is based on the CKD-EPI 2020 equation that does not use a race coefficient. Performed By: #### SANTOSH SALEEM, , 2776-10 #### [facility] ([id number]) [address], [address] [place] [address] Glucose [Mass/Vol] 89 mg/dL Normal 65-99 [facility] Comment on above: Performed By: #### C SRINI, BMP, , 2776-10 #### [facility] ([id number]) [address] [place] [address] Potassium [Moles/Vol] 4.2 mmol/L Normal 3.5-5.0 [facility] Comment on above: Performed By: #### Timmy MILLIGAN, BMP, , 2776-10 #### [facility] ([id number]) [address] [place] [address] Sodium [Moles/Vol] 135 mmol/L Normal 134-146 [facility] Comment on above: Performed By: #### Timmy MILLIGAN, BMP, , 2776-10 #### [facility] ([id number]) [address] [place] [address] Urea nitrogen [Mass/Vol] 13 mg/dL Normal 5-27 [facility] Comment on above: Performed By: #### Timmy MILLIGAN, BMP, , 2776-10 #### [facility] ([id number]) [address] [place] [address] COMPLETE BLOOD COUNTon 10-15 Erythrocyte distribution width (RBC) [Ratio] 18.7 % High 11.5-15.0 [facility] Comment on above: Performed By: #### Timmy MILLIGAN, BMP, , 2776-10 #### [facility] ([id number]) [address] [place] [address] Hematocrit (Bld) [Volume fraction] 29.7 % Low 35-47 [facility] Comment on above: Performed By: #### Timmy MILLIGAN, BMP, , 2776-10 #### [facility] ([id number]) [address] [place] [address] Hemoglobin (Bld) [Mass/Vol] 9.3 g/dL Low 11.7-15.5 [facility] Comment on above: Performed By: #### SANTOSH SALEEM, , 2776-10 #### [facility] ([id number]) [address] [place] [address] MCH (RBC) [Entitic mass] 25.1 pg Low 27-34 [facility] Comment on above: Performed By: #### Timmy MILLIGAN, BMP, , 2776-10 #### [facility] ([id number]) [address] [place] [address] MCHC (RBC) [Mass/Vol] 31.3 g/dL Low 32-36 [facility] Comment on above: Performed By: #### SANTOSH SALEEM, , 2776-10 #### [facility] ([id number]) [address] [place] [address] MCV (RBC) [Entitic vol] 80 fL Normal 80-100 [facility] Comment on above: Performed By: #### SANTOSH SALEEM, , 2776-10 #### [facility] ([id number]) [address] [place] [address] Platelet mean volume (Bld) [Entitic vol] 7.0 fL Normal 7-12 [facility] Comment on above: Performed By: #### Timmy MILLIGAN BMP, , 2776-10 #### [facility] ([id number]) [address] [place] [address] Platelets (Bld) [#/Vol] 705 10*3/uL High 150-450 [facility] Comment on above: Performed By: #### Timmy MILLIGAN BMP, , 2776-10 #### [facility] ([id number]) [address] [place] [address] RBC COUNT 3.71 X10E12/L Low 3.80-5.20 [facility] Comment on above: Performed By: #### C BC, [facility], [address]-7, 2777-1 #### [facility] ([id number]) [address] [place] [address] WBC (Bld) [#/Vol] 24.4 10*3/uL High 4.0-11.0 [facility] Comment on above: Performed By: #### C BC, [facility], [address]-9, 277- #### [facility] ([id number]) [address] [place] [address] Calcium.ionized (Bld) [Mass/ Vol]on 10-15-2023 IONIZED CALCIUM 4.8 mg/dL Normal 4.5-5.3 [facility] Comment on above: Performed By: #### 3 8230-9 #### [facility] ([id number]) [address] [place] [address] [place] SWALLOW MOTILITY FUNCTION on 10-15-2023 FL [...] Pereira MD on 10/15/2023 2:48 PM Normal [facility] Glucose Glucometer (BldC) [M ass/Vol]on 10-15-2023 Glucose [Mass/Vol] 111 mg/dL High 65-99 [facility] Glucose [Mass/Vol] 93 mg/dL Normal 65-99 [facility] Glucose [Mass/Vol] 99 mg/dL Normal 65-99 [facility] MAGNESIUMon 10-15-2023 Magnesium [Mass/Vol] 1.5 mg/dL Low 1.8-2.6 [facility] Comment on above: Performed By: #### E LEC #### [facility] ([id number]) [address] [place] [address] PHOSPHORUSon 10-15-2023 Phosphate [Mass/Vol] 3.4 mg/dL Normal 2.4-4.9 [facility] Comment on above: Performed By: #### E LEC #### [facility] ([id number]) [address] [place] [address] Vancomycin trough [Mass/Vol] on 10-15-2023 VANCOMYCIN TROUGH 15.5 ug/mL Normal 5.0-20.0 [facility] Comment on above: Performed By: #### E LEC #### [facility] ([id number]) [address] [place] [address] ELECTROLYTESon 10-14-2023 Anion gap [Moles/Vol] 7 mmol/L Normal 5-15 [facility] Comment on above: Performed By: #### E LEC #### [facility] ([id number]) [address] [place] [address] Chloride [Moles/Vol] 106 mmol/L Normal 98-109 [facility] Comment on above: Performed By: #### E LEC #### [facility] ([id number]) [address] [place] [address] CO2 [Moles/Vol] 22 mmol/L Normal 22-32 [facility] Comment on above: Performed By: #### E LEC #### [facility] ([id number]) [address] [place] [address] Potassium [Moles/Vol] 5.8 mmol/L High 3.5-5.0 [facility] Comment on above: Performed By: #### E LEC #### [facility] ([id number]) [address] [place] [address] Sodium [Moles/Vol] 135 mmol/L Normal 134-146 [facility] Comment on above: Performed By: #### E LEC #### [facility] ([id number]) [address] [place] [address] Glucose Glucometer (BldC) [M ass/Vol]on 10-14-2023 Glucose [Mass/Vol] 84 mg/dL Normal 65-99 [facility] Glucose [Mass/Vol] 105 mg/dL High 65-99 [facility] Glucose [Mass/Vol] 85 mg/dL Normal 65-99 [facility] BLOOD CULTUREon 10-13-2023 Bacteria identified Aer cx Nom (Bld) SPECIMEN NOTES SUBOPTIMAL VOLUME OF BLOOD COLLECTED, RESULTS MAY BE AFFECTED. CULTURE RESULTS NO GROWTH 5 DAYS Normal [facility] Comment on above: Performed By: #### 1 7928-3 #### [facility] ([id number]) [address] [place] [address] BLOOD CULTUREon 10-05-2023 Bacteria identified Aer cx Nom (Bld) CULTURE RESULTS STAPHYLOCOCCUS AUREUS METHICILLIN RESISTANT Staphylcoccus aureus detected by PCR. mecA/C and MREJ gene detected by PCR (MRSA). Organism: STAPHYLOCOCCUS AUREUS Antibiotic Interpretation NATALIA Status CEFAZOLIN R F CLINDAMYCIN R >=4 F OXACILLIN R >=4 F TRIMETH/SULFAMETHOXAZOLE S <=.5/9.5 F VANCOMYCIN S 1 F DAPTOMYCIN S 0.25 F DOXYCYCLINE S [address] [facility] Comment on above: Performed By: #### 1 7928-3 #### [facility] ([id number]) [address] [facility], [address] [place] [address] Calcium [Mass/volume] in Ser um or PlasmaOrdered By: Jesus Alberto Aquino on 08-20-2023 Calcium [Mass/Vol] 7.5 mg/dL 8.6-10.3 [facility] Carbon dioxide, total [Moles /volume] in Serum or PlasmaOrdered By: Jesus Alberto Aquino on 08-20-2023 CO2 [Moles/Vol] 25.5 mmol/L 21.0-31.0 [facility] Chloride [Moles/volume] in S kaveh or PlasmaOrdered By: Jesus Alberto Aquino on 08-20-2023 Chloride [Moles/Vol] 109 mmol/L 98-107 [facility] Creatinine [Mass/volume] in Serum or PlasmaOrdered By: Jesus Alberto Aquino on 08-20-2023 Creatinine [Mass/Vol] 1.08 mg/dL 0.60-1.20 [facility] Comment on above: Delta: 1.60 on 08/19 Glucose [Mass/volume] in Ser um or PlasmaOrdered By: Jesus Alberto Aquino on 08-20-2023 Glucose [Mass/Vol] 57 mg/dL 70-100 [facility] Comment on above: ADA recommended refe rence rangeRandom Glucose Reference Range is dependent on time and content of last meal. Glucose of more than 200 mg/dL in a nonstressed, ambulatory subject supports the diagnosis of Diabetes Mellitus. No Panel InformationOrdered By: Jesus Alberto Aquino on 08-20-2023 Estimated GFR (CKD-EPI) 52.905 mL/Min [facility] Creatinine Clearance (Chem 41.58 [facility] Potassium [Moles/volume] in Serum or PlasmaOrdered By: Jesus Alberto Aquino on 08-20-2023 Potassium [Moles/Vol] 4.2 mmol/L 3.5-5.1 [facility] Serum or plasma anion gap de terminationOrdered By: Jesus Alberto Aquino on 08-20-2023 Anion gap [Moles/Vol] 12.7 mmol/L 6.0-15.0 [facility] Sodium [Moles/volume] in Ser um or PlasmaOrdered By: Jesus Alberto Aquino on 08-20-2023 Sodium [Moles/Vol] 143 mmol/L 136-145 [facility] Urea nitrogen [Mass/volume] in Serum or PlasmaOrdered By: Jesus Alberto Aquino on 08-20-2023 Urea nitrogen [Mass/Vol] 19 mg/dL 7 [facility] Erythrocyte distribution wid th Auto (RBC) [Ratio]Ordered By: Jesus Alberto Aquino on 08-19-2023 Erythrocyte distribution width (RBC) [Ratio] 17.2 % 11.9-15.3 [facility] Hematocrit Auto (Bld) [Volum e fraction]Ordered By: Jesus Alberto Aquino on 08-19-2023 Hematocrit (Bld) [Volume fraction] 31.8 % 34.0-46.4 [facility] Hemoglobin [Mass/volume] in BloodOrdered By: Jesus Alberto Aquino on 08-19-2023 Hemoglobin (Bld) [Mass/Vol] 10.3 g/dL 11.8-15.4 [facility] Leukocytes [#/volume] correc juma for nucleated erythrocytes in Blood by Automated counOrdered By: Jesus Alberto Aquino on 08-19-2023 WBC corrected for nucl RBC Auto (Bld) [#/Vol] 15.6 10*3/uL 3.8-11.6 [facility] MCH Auto (RBC) [Entitic mass ]Ordered By: Jesus Alberto Aquino on 08-19-2023 MCH (RBC) [Entitic mass] 27.7 pg 24.7-34.3 [facility] MCHC Auto (RBC) [Mass/Vol]Or dered By: Jesus Alberto Aquino on 08-19-2023 MCHC (RBC) [Mass/Vol] 32.4 g/dL 32.0-35.0 [facility] MCV Auto (RBC) [Entitic vol] Ordered By: Jesus Alberto Aquino on 08-19-2023 MCV (RBC) [Entitic vol] 85.4 fL 80-100 [facility] Platelet mean volume Auto (B ld) [Entitic vol]Ordered By: Jesus Alberto Aquino on 08-19-2023 Platelet mean volume (Bld) [Entitic vol] 8.9 fL 6.3-10.7 [facility] Platelets Auto (Bld) [#/Vol] Ordered By: Jesus Alberto Aquino on 08-19-2023 Platelets (Bld) [#/Vol] 201 10*3/uL 150-450 [facility] RBC Auto (Bld) [#/Vol]Ordere d By: Jesus Alberto Aquino on 08-19-2023 RBC (Bld) [#/Vol] 3.72 10*6/uL 3.60-5.00 [facility] Basophils Auto (Bld) [#/Vol] Ordered By: Jesus Alberto Aquino on 08-18-2023 Basophils (Bld) [#/Vol] 0.1 10*3/uL 0.0-0.2 [facility] Basophils/100 WBC Auto (Bld) Ordered By: Jesus Alberto Aquino on 08-18-2023 Basophils/100 WBC (Bld) 0.3 % . [facility] Eosinophils Auto (Bld) [#/Vo l]Ordered By: Jesus Alberto Aquino on 08-18-2023 Eosinophils (Bld) [#/Vol] 0.0 10*3/uL 0.0-0.45 [facility] Eosinophils/100 WBC Auto (Bl d)Ordered By: Jesus Alberto Aquino on 08-18-2023 Eosinophils/100 WBC (Bld) 0.1 % . [facility] Lymphocytes Auto (Bld) [#/Vo l]Ordered By: Jesus Alberto Aquino on 08-18-2023 Lymphocytes (Bld) [#/Vol] 2.8 10*3/uL 1.00-4.8 [facility] Lymphocytes/100 WBC Auto (Bl d)Ordered By: Jesus Alberto Aquino on 08-18-2023 Lymphocytes/100 WBC (Bld) 10.9 % . [facility] Monocytes Auto (Bld) [#/Vol] Ordered By: Jesus Alberto Aquino on 08-18-2023 Monocytes (Bld) [#/Vol] 1.1 10*3/uL 0.0-0.8 [facility] Monocytes/100 WBC Auto (Bld) Ordered By: Jesus Alberto Aquino on 08-18-2023 Monocytes/100 WBC (Bld) 4.4 % . [facility] Neutrophils Auto (Bld) [#/Vo l]Ordered By: Jesus Alberto Aquino on 08-18-2023 Neutrophils (Bld) [#/Vol] 21.6 10*3/uL 1.8-7.7 [facility] Neutrophils/100 WBC Auto (Bl d)Ordered By: Jesus Alberto Aquino on 08-18-2023 Neutrophils/100 WBC (Bld) 84.3 % . [facility] Nucleated erythrocytes [Pres ence] in Blood by Automated countOrdered By: Jesus Alberto Aquino on 08-18-2023 Nucleated RBC Auto Ql (Bld) 0.2 /100{WBC} 0-0.5 [facility] WBC Auto (Bld) [#/Vol]Ordere d By: Jesus Alberto Aquino on 08-18-2023 WBC (Bld) [#/Vol] 25.6 10*3/uL 3.8-11.6 [facility] Activated partial thrombopla stin time (aPTT) in platelet poor plasma by coagulation aOrdered By: Maury Morrissey on 08-17-2023 aPTT Coag (PPP) [Time] 26.3 s 25.1-36.5 [facility] Comment on above: A hematocrit value g reater than 55% may lead to inaccurate results in coagulation testing. Patients having hematocrit values >55% require a special collection tube for coagulation studies. Please contact the laboratory at [phone] for redraw instructions. Alanine aminotransferase [En zymatic activity/volume] in Serum or PlasmaOrdered By: Maury Morrissey on 08-17-2023 ALT [Catalytic activity/Vol] 24 U/L 7-52 [facility] Albumin [Mass/volume] in Ser um or Plasma by Bromocresol green (BCG) dye binding methoOrdered By: Maury Morrissey on 08-17-2023 Albumin BCG dye [Mass/Vol] 3.4 g/dL 3.5-5.7 [facility] Alkaline phosphatase [Enzyma tic activity/volume] in Serum or PlasmaOrdered By: Maury Morrissey on 08-17-2023 ALP [Catalytic activity/Vol] 64 U/L 34-104 [facility] Anisocytosis LM Ql (Bld)Orde red By: Maury Morrissey on 08-17-2023 Anisocytosis Ql (Bld) Moderate [facility] Aspartate aminotransferase [ Enzymatic activity/volume] in Serum or PlasmaOrdered By: Maury Morrissey on 08-17-2023 AST [Catalytic activity/Vol] 23 U/L 13-39 [facility] Automated erythrocytes count in urine sediment (number/area)Ordered By: Maury Morrissey on 08-17-2023 RBC Auto (Urine sed) [#/Area] 0-1 [HPF] 0-4 [facility] Automated leukocytes count i n urine sediment (number/area)Ordered By: Maury Morrissey on 08-17-2023 WBC Auto (Urine sed) [#/Area] 1-2 [HPF] 0-4 [facility] Basophils Auto (Bld) [#/Vol] Ordered By: Maury Morrissey on 08-17-2023 Basophils (Bld) [#/Vol] 0.0 10*3/uL 0.0-0.2 [facility] Basophils/100 WBC Auto (Bld) Ordered By: Maury Morrissey on 08-17-2023 Basophils/100 WBC (Bld) 0.2 % . [facility] Bilirubin Test strip Ql (U)O rdered By: Maury Morrissey on 08-17-2023 Bilirubin Ql (U) Negative Negative [facility] Bilirubin.direct [Mass/volum e] in Serum or PlasmaOrdered By: Maury Morrissey on 08-17-2023 Bilirubin.direct [Mass/Vol] 0.20 mg/dL 0.03-0.18 [facility] Bilirubin.total [Mass/volume ] in Serum or PlasmaOrdered By: Maury Morrissey on 08-17-2023 Bilirubin [Mass/Vol] 0.6 mg/dL 0.3-1.0 [facility] Calcium [Mass/volume] in Ser um or PlasmaOrdered By: Maury Morrissey on 08-17-2023 Calcium [Mass/Vol] 9.1 mg/dL 8.6-10.3 [facility] Carbon dioxide, total [Moles /volume] in Serum or PlasmaOrdered By: Maury Morrissey on 08-17-2023 CO2 [Moles/Vol] 27.3 mmol/L 21.0-31.0 [facility] Chloride [Moles/volume] in S kaveh or PlasmaOrdered By: Maury Morrissey on 08-17-2023 Chloride [Moles/Vol] 97 mmol/L 98-107 [facility] Color Auto (U)Ordered By: Arturo red Yuni on 08-17-2023 Color (U) Yellow Yellow [facility] Creatine kinase [Enzymatic a ctivity/volume] in Serum or PlasmaOrdered By: Maury Morrissey on 08-17-2023 CK [Catalytic activity/Vol] 87 U/L 30-223 [facility] Creatinine [Mass/volume] in Serum or PlasmaOrdered By: Maury Morrissey on 08-17-2023 Creatinine [Mass/Vol] 4.44 mg/dL 0.60-1.20 [facility] Eosinophils Auto (Bld) [#/Vo l]Ordered By: Maury Morrissey on 08-17-2023 Eosinophils (Bld) [#/Vol] 0.0 10*3/uL 0.0-0.45 [facility] Eosinophils/100 WBC Auto (Bl d)Ordered By: Maury Morrissey on 08-17-2023 Eosinophils/100 WBC (Bld) 0.0 % . [facility] Erythrocyte distribution wid th Auto (RBC) [Ratio]Ordered By: Maury Morrissey on 08-17-2023 Erythrocyte distribution width (RBC) [Ratio] 17.6 % 11.9-15.3 [facility] Globulin Calc (S) [Mass/Vol] Ordered By: Maury Morrissey on 08-17-2023 Globulin (S) [Mass/Vol] 3.7 g/dL [facility] Glucose [Mass/volume] in Ser um or PlasmaOrdered By: Maury Morrissey on 08-17-2023 Glucose [Mass/Vol] 79 mg/dL 70-100 [facility] Comment on above: ADA recommended refe rence rangeRandom Glucose Reference Range is dependent on time and content of last meal. Glucose of more than 200 mg/dL in a nonstressed, ambulatory subject supports the diagnosis of Diabetes Mellitus. Hematocrit Auto (Bld) [Volum e fraction]Ordered By: Maury Morrissey on 08-17-2023 Hematocrit (Bld) [Volume fraction] 37.9 % 34.0-46.4 [facility] Hemoglobin [Mass/volume] in BloodOrdered By: Maury Morrissey on 08-17-2023 Hemoglobin (Bld) [Mass/Vol] 12.0 g/dL 11.8-15.4 [facility] Hypochromia LM Ql (Bld)Order ed By: Maury Morrissey on 08-17-2023 Hypochromia Ql (Bld) Slight [facility] INR in Platelet poor plasma by Coagulation assayOrdered By: Maury Morrissey on 08-17-2023 INR Coag (PPP) [Relative time] 1.1 {INR} [facility] Comment on above: INR Therapeutic [...] on 08-17-2023 Ketones (U) [Mass/Vol] Negative Negative [facility] - UrinalysisOrder ed By: Maury Morrissey on 08-17-2023 Hyaline casts LM Ql (Urine sed) 0-8 [LPF] 0-8 [facility] Lactate [Moles/volume] in Se rum or PlasmaOrdered By: Maury Morrissey on 08-17-2023 Lactate [Moles/Vol] 1.1 mmol/L 0.5-2.2 [facility] Leukocytes [#/volume] correc juma for nucleated erythrocytes in Blood by Automated counOrdered By: Maury Morrissey on 08-17-2023 WBC corrected for nucl RBC Auto (Bld) [#/Vol] 29.3 10*3/uL 3.8-11.6 [facility] Lymphocytes Auto (Bld) [#/Vo l]Ordered By: Maury Morrissey on 08-17-2023 Lymphocytes (Bld) [#/Vol] 2.3 10*3/uL 1.00-4.8 [facility] Lymphocytes/100 WBC Auto (Bl d)Ordered By: Maury Morrissey on 08-17-2023 Lymphocytes/100 WBC (Bld) 7.8 % . [facility] MCH Auto (RBC) [Entitic mass ]Ordered By: Maury Morrissey on 08-17-2023 MCH (RBC) [Entitic mass] 27.3 pg 24.7-34.3 [facility] MCHC Auto (RBC) [Mass/Vol]Or dered By: Maury Morrissey on 08-17-2023 MCHC (RBC) [Mass/Vol] 31.6 g/dL 32.0-35.0 [facility] MCV Auto (RBC) [Entitic vol] Ordered By: Maury Morrissey on 08-17-2023 MCV (RBC) [Entitic vol] 86.4 fL 80-100 [facility] Monocyte distribution width [Entitic volume] in Blood by AutomatedOrdered By: Maury Morrissey on 08-17-2023 Monocyte distribution width Auto (Bld) [Entitic vol] 23.25 % 0.00-20.00 [facility] Comment on above: For adults in ED, MD W > 20.0 may be associated with a higher risk of sepsis during the first 12 hrs of hospital admission Monocytes Auto (Bld) [#/Vol] Ordered By: Maury Morrissey on 08-17-2023 Monocytes (Bld) [#/Vol] 1.6 10*3/uL 0.0-0.8 [facility] Monocytes/100 WBC Auto (Bld) Ordered By: Maury Morrissey on 08-17-2023 Monocytes/100 WBC (Bld) 5.5 % . [facility] Natriuretic peptide B [Mass/ Vol]Ordered By: Maury Morrissey on 08-17-2023 Natriuretic peptide B (Bld) [Mass/Vol] 68.0 pg/mL 5-100 [facility] Neutrophils Auto (Bld) [#/Vo l]Ordered By: Maury Morrissey on 08-17-2023 Neutrophils (Bld) [#/Vol] 25.4 10*3/uL 1.8-7.7 [facility] Neutrophils/100 WBC Auto (Bl d)Ordered By: Maury Morrissey on 08-17-2023 Neutrophils/100 WBC (Bld) 86.5 % . [facility] Nitrite Test strip Ql (U)Ord ered By: Maury Morrissey on 08-17-2023 Nitrite Ql (U) Negative Negative [facility] No Panel InformationOrdered By: Maury Morrissey on 08-17-2023 Estimated GFR (CKD-EPI) 9.700 mL/Min [facility] Creatinine Clearance (Chem 10.00 [facility] Nucleated erythrocytes [Pres ence] in Blood by Automated countOrdered By: Maury Morrissey on 08-17-2023 Nucleated RBC Auto Ql (Bld) 0.1 /100{WBC} 0-0.5 [facility] Platelet adequacy [Presence] in Blood by Light microscopyOrdered By: Maury Morrissey on 08-17-2023 Platelets LM Ql (Bld) Normal Normal [facility] Platelet mean volume Auto (B ld) [Entitic vol]Ordered By: Maury Morrissey on 08-17-2023 Platelet mean volume (Bld) [Entitic vol] 8.8 fL 6.3-10.7 [facility] Platelet morphology finding [Identifier] in BloodOrdered By: Maury Morrissey on 08-17-2023 Platelet morphology finding Nom (Bld) Normal Normal [facility] Platelets Auto (Bld) [#/Vol] Ordered By: Maury Morrissey on 08-17-2023 Platelets (Bld) [#/Vol] 298 10*3/uL 150-450 [facility] Polychromasia [Presence] in Blood by Light microscopyOrdered By: Maury Morrissey on 08-17-2023 Polychromasia LM Ql (Bld) Slight [facility] Potassium [Moles/volume] in Serum or PlasmaOrdered By: Maury Morrissey on 08-17-2023 Potassium [Moles/Vol] 4.5 mmol/L 3.5-5.1 [facility] Protein Auto test strip (U) [Mass/Vol]Ordered By: Maury Morrissey on 08-17-2023 Protein (U) [Mass/Vol] Negative Negative [facility] Protein [Mass/volume] in Ser um or PlasmaOrdered By: Maury Morrissey on 08-17-2023 Protein [Mass/Vol] 7.1 g/dL 6.4-8.9 [facility] Prothrombin time (PT)Ordered By: Maury Morrissey on 08-17-2023 PT Coag (PPP) [Time] 12.6 s 9.0-12.9 [facility] Comment on above: A hematocrit value g reater than 55% may lead to inaccurate results in coagulation testing. Patients having hematocrit values >55% require a special collection tube for coagulation studies. Please contact the laboratory at [phone] for redraw instructions. RBC Auto (Bld) [#/Vol]Ordere d By: Maury Morrissey on 08-17-2023 RBC (Bld) [#/Vol] 4.39 10*6/uL 3.60-5.00 [facility] RBC morphologyOrdered By: Arturo Morrissey on 08-17-2023 RBC morphology finding Nom (Bld) N/A [facility] Serum or plasma albumin/glob ulin mass ratioOrdered By: Maury Morrissey on 08-17-2023 Albumin/Globulin [Mass ratio] 0.9 {ratio} [facility] Serum or plasma anion gap de terminationOrdered By: Maury Morrissey on 08-17-2023 Anion gap [Moles/Vol] 23.2 mmol/L 6.0-15.0 [facility] Serum or plasma non-glucuron idated bilirubin measurement (mass/volume)Ordered By: Maury oMrrissey on 08-17-2023 Bilirubin.indirect [Mass/Vol] 0.4 mg/dL [facility] Sodium [Moles/volume] in Ser um or PlasmaOrdered By: Maury Morrissey on 08-17-2023 Sodium [Moles/Vol] 143 mmol/L 136-145 [facility] Specific gravity Auto test s trip (U) [Rel density]Ordered By: Maury Morrissey on 08-17-2023 Specific gravity (U) [Rel density] 1.008 1.001-1.03 0 [facility] Squamous epithelial cells de tection in urine sediment by light microscopyOrdered By: Maury Morrissey on 08-17-2023 Epithelial cells.squamous LM Ql (Urine sed) None seen [HPF] 0-2 [facility] Troponin I.cardiac [Mass/vol ume] in Serum or Plasma by Detection limit <= 0.01 ng/Ordered By: Maury Morrissey on 08-17-2023 Troponin I.cardiac DL <= 0.01 ng/mL [Mass/Vol] 38.1 pg/mL 0.0-15.0 [facility] Urea nitrogen [Mass/volume] in Serum or PlasmaOrdered By: Maury Morrissey on 08-17-2023 Urea nitrogen [Mass/Vol] 92 mg/dL 7-25 [facility] Urine bacteria detection by automated methodOrdered By: Maury Morrissey on 08-17-2023 Bacteria Auto Ql (U) 1+ None Seen [facility] Urine clarity by refractomet ry automatedOrdered By: Maury Morrissey on 08-17-2023 Clarity Refractometry automated (U) Clear Clear [facility] Urine glucose measurement by automated test strip (mass/volume)Ordered By: Maury Morrissey on 08-17-2023 Glucose Auto test strip (U) [Mass/Vol] Normal mg/dL Normal [facility] Urine hemoglobin detection b y automated test stripOrdered By: Maury Morrissey on 08-17-2023 Hemoglobin Auto test strip Ql (U) Trace Negative [facility] Urine leukocyte esterase det ection by automated test stripOrdered By: Maury Morrissey on 08-17-2023 Leukocyte esterase Auto test strip Ql (U) Negative Negative [facility] Urobilinogen Auto test strip (U) [Mass/Vol]Ordered By: Maury Morrissey on 08-17-2023 Urobilinogen (U) [Mass/Vol] Normal mg/dL Normal [facility] WBC Auto (Bld) [#/Vol]Ordere d By: Maury Morrissey on 08-17-2023 WBC (Bld) [#/Vol] 29.3 10*3/uL 3.8-11.6 [facility] pH Auto test strip (U)Ordere d By: Maury Morrissey on 08-17-2023 pH (U) 5.5 [pH] 5.0-9.0 [facility] Anisocytosis LM Ql (Bld)Orde red By: Bhavesh Cristobal on 07-14-2023 Anisocytosis Ql (Bld) Marked [facility] Basophils Auto (Bld) [#/Vol] Ordered By: Bhavesh Cristobal on 07-14-2023 Basophils (Bld) [#/Vol] 0.1 10*3/uL 0.0-0.2 [facility] Basophils/100 WBC Auto (Bld) Ordered By: Bhavesh Cristobal on 07-14-2023 Basophils/100 WBC (Bld) 0.3 % . [facility] Calcium [Mass/volume] in Ser um or PlasmaOrdered By: Bhavesh Cristobal on 07-14-2023 Calcium [Mass/Vol] 8.0 mg/dL 8.6-10.3 [facility] Carbon dioxide, total [Moles /volume] in Serum or PlasmaOrdered By: Bhavesh Cristobal on 07-14-2023 CO2 [Moles/Vol] 28.1 mmol/L 21.0-31.0 [facility] Chloride [Moles/volume] in S kaveh or PlasmaOrdered By: Bhavesh Cristobal on 07-14-2023 Chloride [Moles/Vol] 110 mmol/L 98-107 [facility] Creatinine [Mass/volume] in Serum or PlasmaOrdered By: Bhavesh Cristobal on 07-14-2023 Creatinine [Mass/Vol] 1.10 mg/dL 0.60-1.20 [facility] Eosinophils Auto (Bld) [#/Vo l]Ordered By: Bhavesh Cristobal on 07-14-2023 Eosinophils (Bld) [#/Vol] 0.1 10*3/uL 0.0-0.45 [facility] Eosinophils/100 WBC Auto (Bl d)Ordered By: Bhavesh Cristobal on 07-14-2023 Eosinophils/100 WBC (Bld) 0.4 % . [facility] Erythrocyte distribution wid th Auto (RBC) [Ratio]Ordered By: Bhavesh Cristobal on 07-14-2023 Erythrocyte distribution width (RBC) [Ratio] 22.8 % 11.9-15.3 [facility] Glucose Glucometer (BldC) [M ass/Vol]Ordered By: Jolanta Mckenzie on 07-14-2023 Glucose [Mass/Vol] 80 mg/dL [facility] Comment on above: Random Glucose Refer ence Range is dependent on time and content of last meal. Glucose of more than 200 mg/dL in a nonstressed, ambulatory subject supports the diagnosis of Diabetes Mellitus. Glucose [Mass/volume] in Ser um or PlasmaOrdered By: Bhavesh Cristobal on 07-14-2023 Glucose [Mass/Vol] 84 mg/dL 70-100 [facility] Comment on above: ADA recommended refe rence rangeRandom Glucose Reference Range is dependent on time and content of last meal. Glucose of more than 200 mg/dL in a nonstressed, ambulatory subject supports the diagnosis of Diabetes Mellitus. Hematocrit Auto (Bld) [Volum e fraction]Ordered By: Bhavesh Cristobal on 07-14-2023 Hematocrit (Bld) [Volume fraction] 33.6 % 34.0-46.4 [facility] Hemoglobin [Mass/volume] in BloodOrdered By: Bhavesh Cristobal on 07-14-2023 Hemoglobin (Bld) [Mass/Vol] 10.5 g/dL 11.8-15.4 [facility] Hypochromia LM Ql (Bld)Order ed By: Bhavesh Cristobal on 07-14-2023 Hypochromia Ql (Bld) Slight [facility] Leukocytes [#/volume] correc jmua for nucleated erythrocytes in Blood by Automated counOrdered By: Bhavesh Cristobal on 07-14-2023 WBC corrected for nucl RBC Auto (Bld) [#/Vol] 19.3 10*3/uL 3.8-11.6 [facility] Lymphocytes Auto (Bld) [#/Vo l]Ordered By: Bhavesh Cristobal on 07-14-2023 Lymphocytes (Bld) [#/Vol] 4.3 10*3/uL 1.00-4.8 [facility] Lymphocytes/100 WBC Auto (Bl d)Ordered By: Bhavesh Cristobal on 07-14-2023 Lymphocytes/100 WBC (Bld) 22.1 % . [facility] MCH Auto (RBC) [Entitic mass ]Ordered By: Bhavesh Cristobal on 07-14-2023 MCH (RBC) [Entitic mass] 26.2 pg 24.7-34.3 [facility] MCHC Auto (RBC) [Mass/Vol]Or dered By: Bhavesh Cristobal on 07-14-2023 MCHC (RBC) [Mass/Vol] 31.2 g/dL 32.0-35.0 [facility] MCV Auto (RBC) [Entitic vol] Ordered By: Bhavesh Cristobal on 07-14-2023 MCV (RBC) [Entitic vol] 84.0 fL 80-100 [facility] Monocytes Auto (Bld) [#/Vol] Ordered By: Bhavesh Cristobal on 07-14-2023 Monocytes (Bld) [#/Vol] 1.4 10*3/uL 0.0-0.8 [facility] Monocytes/100 WBC Auto (Bld) Ordered By: Bhavesh Cristobal on 07-14-2023 Monocytes/100 WBC (Bld) 7.3 % . [facility] Neutrophils Auto (Bld) [#/Vo l]Ordered By: Bhavesh Cristobal on 07-14-2023 Neutrophils (Bld) [#/Vol] 13.5 10*3/uL 1.8-7.7 [facility] Neutrophils/100 WBC Auto (Bl d)Ordered By: Bhavesh Cristobal on 07-14-2023 Neutrophils/100 WBC (Bld) 69.9 % . [facility] No Panel InformationOrdered By: Bhavesh Cristobal on 07-14-2023 Estimated GFR (CKD-EPI) 51.753 mL/Min [facility] Creatinine Clearance (Chem 42.83 [facility] Nucleated erythrocytes [Pres ence] in Blood by Automated countOrdered By: Bhavesh Cristobal on 07-14-2023 Nucleated RBC Auto Ql (Bld) 0.1 /100{WBC} 0-0.5 [facility] Platelet adequacy [Presence] in Blood by Light microscopyOrdered By: Bhavesh Cristobal on 07-14-2023 Platelets LM Ql (Bld) Normal Normal [facility] Platelet mean volume Auto (B ld) [Entitic vol]Ordered By: Bhavesh Cristobal on 07-14-2023 Platelet mean volume (Bld) [Entitic vol] 7.9 fL 6.3-10.7 [facility] Platelet morphology finding [Identifier] in BloodOrdered By: Bhavesh Cristobal on 07-14-2023 Platelet morphology finding Nom (Bld) Normal Normal [facility] Platelets Auto (Bld) [#/Vol] Ordered By: Bhavesh Cristobal on 07-14-2023 Platelets (Bld) [#/Vol] 238 10*3/uL 150-450 [facility] Polychromasia [Presence] in Blood by Light microscopyOrdered By: Bhavesh Cristobal on 07-14-2023 Polychromasia LM Ql (Bld) Slight [facility] Potassium [Moles/volume] in Serum or PlasmaOrdered By: Bhavesh Cristobal on 07-14-2023 Potassium [Moles/Vol] 4.2 mmol/L 3.5-5.1 [facility] RBC Auto (Bld) [#/Vol]Ordere d By: Bhavesh Cristobal on 07-14-2023 RBC (Bld) [#/Vol] 4.00 10*6/uL 3.60-5.00 [facility] RBC morphologyOrdered By: Wilber Cristobal on 07-14-2023 RBC morphology finding Nom (Bld) N/A [facility] Serum or plasma anion gap de terminationOrdered By: Bhavesh Cristobal on 07-14-2023 Anion gap [Moles/Vol] 9.1 mmol/L 6.0-15.0 [facility] Sodium [Moles/volume] in Ser um or PlasmaOrdered By: Bhavesh Cristobal on 07-14-2023 Sodium [Moles/Vol] 143 mmol/L 136-145 [facility] Urea nitrogen [Mass/volume] in Serum or PlasmaOrdered By: Bhavesh Cristobal on 07-14-2023 Urea nitrogen [Mass/Vol] 24 mg/dL 7-25 [facility] WBC Auto (Bld) [#/Vol]Ordere d By: Bhavesh Cristobal on 07-14-2023 WBC (Bld) [#/Vol] 19.3 10*3/uL 3.8-11.6 [facility] Alanine aminotransferase [En zymatic activity/volume] in Serum or PlasmaOrdered By: Jolanta Mckenzie on 07-12-2023 ALT [Catalytic activity/Vol] 16 U/L 7-52 [facility] Albumin [Mass/volume] in Ser um or Plasma by Bromocresol green (BCG) dye binding methoOrdered By: Jolanta Mckenzie on 07-12-2023 Albumin BCG dye [Mass/Vol] 3.0 g/dL 3.5-5.7 [facility] Alkaline phosphatase [Enzyma tic activity/volume] in Serum or PlasmaOrdered By: Jolanta Mckenzie on 07-12-2023 ALP [Catalytic activity/Vol] 45 U/L 34-104 [facility] Aspartate aminotransferase [ Enzymatic activity/volume] in Serum or PlasmaOrdered By: Jolanta Mckenzie on 07-12-2023 AST [Catalytic activity/Vol] 14 U/L 13-39 [facility] Bilirubin.total [Mass/volume ] in Serum or PlasmaOrdered By: Jolanta Mckenzie on 07-12-2023 Bilirubin [Mass/Vol] 0.3 mg/dL 0.3-1.0 [facility] Globulin Calc (S) [Mass/Vol] Ordered By: Jolanta Mckenzie on 07-12-2023 Globulin (S) [Mass/Vol] 2.7 g/dL [facility] Protein [Mass/volume] in Ser um or PlasmaOrdered By: Jolanta Mckenzie on 07-12-2023 Protein [Mass/Vol] 5.7 g/dL 6.4-8.9 [facility] Serum or plasma albumin/glob ulin mass ratioOrdered By: Jolanta Mckenzie on 07-12-2023 Albumin/Globulin [Mass ratio] 1.1 {ratio} [facility] Acanthocytes [Presence] in B lood by Light microscopyOrdered By: Marshall Dominguez on 07-10-2023 Acanthocytes LM Ql (Bld) Slight [facility] Aerobic cultureOrdered By: Viki Mckenzie on 07-10-2023 Bacteria identified Aer cx Nom (Unsp spec) [facility] Anisocytosis LM Ql (Bld)Orde red By: Marshall Dominguez on 07-10-2023 Anisocytosis Ql (Bld) Moderate [facility] Automated erythrocytes count in urine sediment (number/area)Ordered By: Marshall Dominguez on 07-10-2023 RBC Auto (Urine sed) [#/Area] 3-4 [HPF] 0-4 [facility] Automated leukocytes count i n urine sediment (number/area)Ordered By: Marshall Dominguez on 07-10-2023 WBC Auto (Urine sed) [#/Area] Innumerable [HPF] 0-4 [facility] Bacterial blood cultureOrder ed By: Marshall Dominguez on 07-10-2023 Bacteria identified Cx Nom (Bld) NO GROWTH 5 DAYS [facility] Basophils Auto (Bld) [#/Vol] Ordered By: Marshall Dominguez on 07-10-2023 Basophils (Bld) [#/Vol] 0.0 10*3/uL 0.0-0.2 [facility] Basophils/100 WBC Auto (Bld) Ordered By: Marshall Dominguez on 07-10-2023 Basophils/100 WBC (Bld) 0.2 % . [facility] Bilirubin Test strip Ql (U)O rdered By: Marshall Dominguez on 07-10-2023 Bilirubin Ql (U) Negative Negative [facility] Calcium [Mass/volume] in Ser um or PlasmaOrdered By: Marshall Dominguez on 07-10-2023 Calcium [Mass/Vol] 8.9 mg/dL 8.6-10.3 [facility] Carbon dioxide, total [Moles /volume] in Serum or PlasmaOrdered By: Marshall Dominguez on 07-10-2023 CO2 [Moles/Vol] 32.4 mmol/L 21.0-31.0 [facility] Chloride [Moles/volume] in S kaveh or PlasmaOrdered By: Marshall Dominguez on 07-10-2023 Chloride [Moles/Vol] 105 mmol/L 98-107 [facility] Color Auto (U)Ordered By: Ruslan Dominguez on 07-10-2023 Color (U) Yellow Yellow [facility] Creatinine [Mass/volume] in Serum or PlasmaOrdered By: Marshall Dominguez on 07-10-2023 Creatinine [Mass/Vol] 1.56 mg/dL 0.60-1.20 [facility] Eosinophils Auto (Bld) [#/Vo l]Ordered By: Marshall Dominguez on 07-10-2023 Eosinophils (Bld) [#/Vol] 0.1 10*3/uL 0.0-0.45 [facility] Eosinophils/100 WBC Auto (Bl d)Ordered By: Marshall Dominguez on 07-10-2023 Eosinophils/100 WBC (Bld) 0.4 % . [facility] Erythrocyte distribution wid th Auto (RBC) [Ratio]Ordered By: Marshall Dominguez on 07-10-2023 Erythrocyte distribution width (RBC) [Ratio] 22.2 % 11.9-15.3 [facility] Glucose [Mass/volume] in Ser um or PlasmaOrdered By: Marshall Dominguez on 07-10-2023 Glucose [Mass/Vol] 83 mg/dL 70-100 [facility] Comment on above: ADA recommended refe rence rangeRandom Glucose Reference Range is dependent on time and content of last meal. Glucose of more than 200 mg/dL in a nonstressed, ambulatory subject supports the diagnosis of Diabetes Mellitus. Gram stain for investigation of transfusion reactionOrdered By: Jolanta Mckenzie on 07-10-2023 Microscopic observation Gram stain Nom (Unsp spec) [facility] Hematocrit Auto (Bld) [Volum e fraction]Ordered By: Marshall Dominguez on 07-10-2023 Hematocrit (Bld) [Volume fraction] 34.4 % 34.0-46.4 [facility] [facility] Hemoglobin [Mass/volume] in BloodOrdered By: Marshall Dominguez on 07-10-2023 Hemoglobin (Bld) [Mass/Vol] 11.0 g/dL 11.8-15.4 [facility] Hypochromia LM Ql (Bld)Order ed By: Marshall Dominguez on 07-10-2023 Hypochromia Ql (Bld) Slight [facility] INR in Platelet poor plasma by Coagulation assayOrdered By: Marshall Dominguez on 07-10-2023 INR Coag (PPP) [Relative time] 0.9 {INR} [facility] Comment on above: INR Therapeutic [...] 07-10-2023 Ketones (U) [Mass/Vol] Negative [facility] - UrinalysisOrder ed By: Marshall Dominguez on 07-10-2023 Hyaline casts LM Ql (Urine sed) 0-8 [LPF] 0-8 [facility] Lactate [Moles/volume] in Se rum or PlasmaOrdered By: Marshall Dominguez on 07-10-2023 Lactate [Moles/Vol] 1.6 mmol/L 0.5-2.2 [facility] Leukocytes [#/volume] correc juma for nucleated erythrocytes in Blood by Automated counOrdered By: Marshall Dominguez on 07-10-2023 WBC corrected for nucl RBC Auto (Bld) [#/Vol] 21.3 10*3/uL 3.8-11.6 [facility] Lymphocytes Auto (Bld) [#/Vo l]Ordered By: Marshall Dominguez on 07-10-2023 Lymphocytes (Bld) [#/Vol] 6.7 10*3/uL 1.00-4.8 [facility] Lymphocytes/100 WBC Auto (Bl d)Ordered By: Marshall Dominguez on 07-10-2023 Lymphocytes/100 WBC (Bld) 31.5 % . [facility] MCH Auto (RBC) [Entitic mass ]Ordered By: Marshall Dominguez on 07-10-2023 MCH (RBC) [Entitic mass] 26.5 pg 24.7-34.3 [facility] MCHC Auto (RBC) [Mass/Vol]Or dered By: Marshall Dominguez on 07-10-2023 MCHC (RBC) [Mass/Vol] 32.0 g/dL 32.0-35.0 [facility] MCV Auto (RBC) [Entitic vol] Ordered By: Marshall Dominguez on 07-10-2023 MCV (RBC) [Entitic vol] 82.7 fL 80-100 [facility] Microcytes LM Ql (Bld)Ordere d By: Marshall Dominguez on 07-10-2023 Microcytes Ql (Bld) Moderate [facility] Monocytes Auto (Bld) [#/Vol] Ordered By: Marshall Dominguez on 07-10-2023 Monocytes (Bld) [#/Vol] 1.4 10*3/uL 0.0-0.8 [facility] Monocytes/100 WBC Auto (Bld) Ordered By: Marshall Dominguez on 07-10-2023 Monocytes/100 WBC (Bld) 6.5 % . [facility] Natriuretic peptide B [Mass/ Vol]Ordered By: Marshall Dominguez on 07-10-2023 Natriuretic peptide B (Bld) [Mass/Vol] 54.0 pg/mL 5-100 [facility] Neutrophils Auto (Bld) [#/Vo l]Ordered By: Marshall Dominguez on 07-10-2023 Neutrophils (Bld) [#/Vol] 13.1 10*3/uL 1.8-7.7 [facility] Neutrophils/100 WBC Auto (Bl d)Ordered By: Marshall Dominguez on 07-10-2023 Neutrophils/100 WBC (Bld) 61.4 % . [facility] Nitrite Test strip Ql (U)Ord ered By: Marshall Dominguez on 07-10-2023 Nitrite Ql (U) Positive Negative [facility] No Panel InformationOrdered By: Marshall Dominguez on 07-10-2023 Estimated GFR (CKD-EPI) 34.030 mL/Min [facility] Creatinine Clearance (Chem N/A [facility] Nucleated erythrocytes [Pres ence] in Blood by Automated countOrdered By: Marshall Dominguez on 07-10-2023 Nucleated RBC Auto Ql (Bld) 0.1 /100{WBC} 0-0.5 [facility] Ovalocyte detectionOrdered B y: Marshall Dominguez on 07-10-2023 Ovalocytes LM Ql (Bld) Slight [facility] Platelet adequacy [Presence] in Blood by Light microscopyOrdered By: Marshall Dominguez on 07-10-2023 Platelets LM Ql (Bld) Normal Normal [facility] Platelet mean volume Auto (B ld) [Entitic vol]Ordered By: Marshall Dominguez on 07-10-2023 Platelet mean volume (Bld) [Entitic vol] 8.0 fL 6.3-10.7 [facility] Platelet morphology finding [Identifier] in BloodOrdered By: Marshall Dominguez on 07-10-2023 Platelet morphology finding Nom (Bld) N/A [facility] Platelets Auto (Bld) [#/Vol] Ordered By: Marshall Dominguez on 07-10-2023 Platelets (Bld) [#/Vol] 250 10*3/uL 150-450 [facility] Poikilocytosis [Presence] in Blood by Light microscopyOrdered By: Marshall Dominguez on 07-10-2023 Poikilocytosis LM Ql (Bld) Slight [facility] Polychromasia [Presence] in Blood by Light microscopyOrdered By: Marshall Dominguez on 07-10-2023 Polychromasia LM Ql (Bld) Slight [facility] Potassium [Moles/volume] in Serum or PlasmaOrdered By: Marshall Dominguez on 07-10-2023 Potassium [Moles/Vol] 3.9 mmol/L 3.5-5.1 [facility] Protein Auto test strip (U) [Mass/Vol]Ordered By: Marshall Dominguez on 07-10-2023 Protein (U) [Mass/Vol] 30 mg/dL Negative [facility] Prothrombin time (PT)Ordered By: Marshall Dominguez on 07-10-2023 PT Coag (PPP) [Time] 10.6 s 9.0-12.9 [facility] Comment on above: A hematocrit value g reater than 55% may lead to inaccurate results in coagulation testing. Patients having hematocrit values >55% require a special collection tube for coagulation studies. Please contact the laboratory at [phone] for redraw instructions. RBC Auto (Bld) [#/Vol]Ordere d By: Marshall Dominguez on 07-10-2023 RBC (Bld) [#/Vol] 4.17 10*6/uL 3.60-5.00 [facility] RBC morphologyOrdered By: Ruslan Dominguez on 07-10-2023 RBC morphology finding Nom (Bld) N/A [facility] Serum or plasma anion gap de terminationOrdered By: Marshall Dominguez on 07-10-2023 Anion gap [Moles/Vol] 9.5 mmol/L 6.0-15.0 [facility] Sodium [Moles/volume] in Ser um or PlasmaOrdered By: Marshall Dominguez on 07-10-2023 Sodium [Moles/Vol] 143 mmol/L 136-145 [facility] Specific gravity Auto test s trip (U) [Rel density]Ordered By: Marshall Dominguez on 07-10-2023 Specific gravity (U) [Rel density] 1.022 1.001-1.03 0 [facility] Squamous epithelial cells de tection in urine sediment by light microscopyOrdered By: Marshall Dominguez on 07-10-2023 Epithelial cells.squamous LM Ql (Urine sed) 1-2 [HPF] 0-2 [facility] Teardrop cell detectionOrder ed By: Marshall Dominguez on 07-10-2023 Dacrocytes LM Ql (Bld) Slight [facility] Troponin I.cardiac [Mass/vol ume] in Serum or Plasma by Detection limit <= 0.01 ng/Ordered By: Marshall Dominguez on 07-10-2023 Troponin I.cardiac DL <= 0.01 ng/mL [Mass/Vol] 11.7 pg/mL 0.0-15.0 [facility] Urea nitrogen [Mass/volume] in Serum or PlasmaOrdered By: Marshall Dominguez on 07-10-2023 Urea nitrogen [Mass/Vol] 36 mg/dL 7-25 [facility] Urine bacteria detection by automated methodOrdered By: Marshall Dominguez on 07-10-2023 Bacteria Auto Ql (U) 2+ None Seen [facility] Urine clarity by refractomet ry automatedOrdered By: Marshall Dominguez on 07-10-2023 Clarity Refractometry automated (U) Cloudy Clear [facility] Urine culture routineOrdered By: Marshall Dominguez on 07-10-2023 Bacteria identified Cx Nom (U) Proteus mirabilis [facility] Urine glucose measurement by automated test strip (mass/volume)Ordered By: Marshall Dominguez on 07-10-2023 Glucose Auto test strip (U) [Mass/Vol] Normal mg/dL Normal [facility] Urine hemoglobin detection b y automated test stripOrdered By: Marshall Dominguez on 07-10-2023 Hemoglobin Auto test strip Ql (U) Negative Negative [facility] Urine leukocyte esterase det ection by automated test stripOrdered By: Marshall Dominguez on 07-10-2023 Leukocyte esterase Auto test strip Ql (U) 4+ Negative [facility] Urobilinogen Auto test strip (U) [Mass/Vol]Ordered By: Marshall Dominguez on 07-10-2023 Urobilinogen (U) [Mass/Vol] Normal mg/dL Normal [facility] WBC Auto (Bld) [#/Vol]Ordere d By: Marshall Dominguez on 07-10-2023 WBC (Bld) [#/Vol] 21.3 10*3/uL 3.8-11.6 [facility] pH Auto test strip (U)Ordere d By: Marshall Dominguez on 07-10-2023 pH (U) 8.5 [pH] 5.0-9.0 [facility] Alanine aminotransferase [En zymatic activity/volume] in Serum or PlasmaOrdered By: Kadie Hungimtulio on 06-17-2023 ALT [Catalytic activity/Vol] 14 U/L 7-52 [facility] Albumin [Mass/volume] in Ser um or Plasma by Bromocresol green (BCG) dye binding methoOrdered By: Kadie Bullimore on 06-17-2023 Albumin BCG dye [Mass/Vol] 3.4 g/dL 3.5-5.7 [facility] Alkaline phosphatase [Enzyma tic activity/volume] in Serum or PlasmaOrdered By: Kadie Bullimore on 06-17-2023 ALP [Catalytic activity/Vol] 48 U/L 34-104 [facility] Aspartate aminotransferase [ Enzymatic activity/volume] in Serum or PlasmaOrdered By: Kadie Bullimore on 08-21-2023 AST [Catalytic activity/Vol] 15 U/L 13-39 [facility] Basophils Auto (Bld) [#/Vol] Ordered By: Kadie Bullimore on 06-17-2023 Basophils (Bld) [#/Vol] 0.1 10*3/uL 0.0-0.2 [facility] Basophils/100 WBC Auto (Bld) Ordered By: Kadie Bullimore on 06-17-2023 Basophils/100 WBC (Bld) 0.3 % . [facility] Bilirubin.total [Mass/volume ] in Serum or PlasmaOrdered By: Kadie Bullimore on 06-17-2023 Bilirubin [Mass/Vol] 0.4 mg/dL 0.3-1.0 [facility] Calcium [Mass/volume] in Ser um or PlasmaOrdered By: Kadie Bullimore on 06-17-2023 Calcium [Mass/Vol] 9.5 mg/dL 8.6-10.3 [facility] Carbon dioxide, total [Moles /volume] in Serum or PlasmaOrdered By: Kadie Bullimore on 06-17-2023 CO2 [Moles/Vol] 34.6 mmol/L 21.0-31.0 [facility] Chloride [Moles/volume] in S kaveh or PlasmaOrdered By: Kadie Bullimore on 06-17-2023 Chloride [Moles/Vol] 104 mmol/L 98-107 [facility] Creatinine [Mass/volume] in Serum or PlasmaOrdered By: Kadie Bullimore on 06-17-2023 Creatinine [Mass/Vol] 1.24 mg/dL 0.60-1.20 [facility] Eosinophils Auto (Bld) [#/Vo l]Ordered By: Kadie Bullimore on 06-17-2023 Eosinophils (Bld) [#/Vol] 0.0 10*3/uL 0.0-0.45 [facility] Eosinophils/100 WBC Auto (Bl d)Ordered By: Kadie Bullimore on 06-17-2023 Eosinophils/100 WBC (Bld) 0.2 % . [facility] Erythrocyte distribution wid th Auto (RBC) [Ratio]Ordered By: Kadie Bullimore on 06-17-2023 Erythrocyte distribution width (RBC) [Ratio] 21.5 % 11.9-15.3 [facility] Globulin Calc (S) [Mass/Vol] Ordered By: Kadie Jones on 06-17-2023 Globulin (S) [Mass/Vol] 2.9 g/dL [facility] Glucose [Mass/volume] in Ser um or PlasmaOrdered By: Kadie Jones on 06-17-2023 Glucose [Mass/Vol] 103 mg/dL 70-100 [facility] Comment on above: ADA recommended refe rence rangeRandom Glucose Reference Range is dependent on time and content of last meal. Glucose of more than 200 mg/dL in a nonstressed, ambulatory subject supports the diagnosis of Diabetes Mellitus. Hematocrit Auto (Bld) [Volum e fraction]Ordered By: Kadie Jones on 06-17-2023 Hematocrit (Bld) [Volume fraction] 34.6 % 34.0-46.4 [facility] Hemoglobin [Mass/volume] in BloodOrdered By: Kadie Jones on 06-17-2023 Hemoglobin (Bld) [Mass/Vol] 10.9 g/dL 11.8-15.4 [facility] Leukocytes [#/volume] correc juma for nucleated erythrocytes in Blood by Automated counOrdered By: Kadie Jones on 06-17-2023 WBC corrected for nucl RBC Auto (Bld) [#/Vol] 17.4 10*3/uL 3.8-11.6 [facility] Lymphocytes Auto (Bld) [#/Vo l]Ordered By: Kadie Jones on 06-17-2023 Lymphocytes (Bld) [#/Vol] 3.7 10*3/uL 1.00-4.8 [facility] Lymphocytes/100 WBC Auto (Bl d)Ordered By: Kadie Jones on 06-17-2023 Lymphocytes/100 WBC (Bld) 21.2 % . [facility] MCH Auto (RBC) [Entitic mass ]Ordered By: Kadie Jones on 06-17-2023 MCH (RBC) [Entitic mass] 24.8 pg 24.7-34.3 [facility] MCHC Auto (RBC) [Mass/Vol]Or dered By: Kadie Hungimore on 06-17-2023 MCHC (RBC) [Mass/Vol] 31.5 g/dL 32.0-35.0 [facility] MCV Auto (RBC) [Entitic vol] Ordered By: Kadie Bullimore on 06-17-2023 MCV (RBC) [Entitic vol] 78.7 fL 80-100 [facility] Monocyte distribution width [Entitic volume] in Blood by AutomatedOrdered By: Kadie Bullimore on 06-17-2023 Monocyte distribution width Auto (Bld) [Entitic vol] 20.88 % 0.00-20.00 [facility] Comment on above: For adults in ED, MD W > 20.0 may be associated with a higher risk of sepsis during the first 12 hrs of hospital admission Monocytes Auto (Bld) [#/Vol] Ordered By: Kadie Bullimore on 06-17-2023 Monocytes (Bld) [#/Vol] 1.1 10*3/uL 0.0-0.8 [facility] Monocytes/100 WBC Auto (Bld) Ordered By: Kadie Bullimore on 06-17-2023 Monocytes/100 WBC (Bld) 6.6 % . [facility] Natriuretic peptide B [Mass/ Vol]Ordered By: Kadie Bullimore on 06-17-2023 Natriuretic peptide B (Bld) [Mass/Vol] 109.0 pg/mL 5-100 [facility] Neutrophils Auto (Bld) [#/Vo l]Ordered By: Kadie Bullimore on 06-17-2023 Neutrophils (Bld) [#/Vol] 12.4 10*3/uL 1.8-7.7 [facility] Neutrophils/100 WBC Auto (Bl d)Ordered By: Kadie Bullimore on 06-17-2023 Neutrophils/100 WBC (Bld) 71.7 % . [facility] No Panel InformationOrdered By: Kadie Hustonore on 06-17-2023 Estimated GFR (CKD-EPI) 44.823 mL/Min [facility] Creatinine Clearance (Chem 35.64 [facility] Nucleated erythrocytes [Pres ence] in Blood by Automated countOrdered By: Kadie Hungimore on 06-17-2023 Nucleated RBC Auto Ql (Bld) 0.1 /100{WBC} 0-0.5 [facility] Platelet mean volume Auto (B ld) [Entitic vol]Ordered By: Kadie Bullimore on 06-17-2023 Platelet mean volume (Bld) [Entitic vol] 7.4 fL 6.3-10.7 [facility] Platelets Auto (Bld) [#/Vol] Ordered By: Kadie Bullimore on 06-17-2023 Platelets (Bld) [#/Vol] 257 10*3/uL 150-450 [facility] Potassium [Moles/volume] in Serum or PlasmaOrdered By: Kadie Bullimore on 06-17-2023 Potassium [Moles/Vol] 3.7 mmol/L 3.5-5.1 [facility] Protein [Mass/volume] in Ser um or PlasmaOrdered By: Kadie Bullimore on 06-17-2023 Protein [Mass/Vol] 6.3 g/dL 6.4-8.9 [facility] RBC Auto (Bld) [#/Vol]Ordere d By: Kadie Bullimore on 06-17-2023 RBC (Bld) [#/Vol] 4.39 10*6/uL 3.60-5.00 [facility] Serum or plasma albumin/glob ulin mass ratioOrdered By: Kadie Bullimore on 06-17-2023 Albumin/Globulin [Mass ratio] 1.2 {ratio} [facility] Serum or plasma anion gap de terminationOrdered By: Kadie Bullimore on 06-17-2023 Anion gap [Moles/Vol] 8.1 mmol/L 6.0-15.0 [facility] Sodium [Moles/volume] in Ser um or PlasmaOrdered By: Kadie Bullimore on 06-17-2023 Sodium [Moles/Vol] 143 mmol/L 136-145 [facility] Troponin I.cardiac [Mass/vol ume] in Serum or Plasma by Detection limit <= 0.01 ng/Ordered By: Kadie Bullimore on 06-17-2023 Troponin I.cardiac DL <= 0.01 ng/mL [Mass/Vol] 9.5 pg/mL 0.0-15.0 [facility] Urea nitrogen [Mass/volume] in Serum or PlasmaOrdered By: Kadie Jones on 06-17-2023 Urea nitrogen [Mass/Vol] 25 mg/dL 7-25 [facility] WBC Auto (Bld) [#/Vol]Ordere d By: Kadie Hustonore on 06-17-2023 WBC (Bld) [#/Vol] 17.4 10*3/uL 3.8-11.6 [facility] Anisocytosis LM Ql (Bld)Orde red By: Carla Hagan on 12-31-2022 Anisocytosis Ql (Bld) Moderate [facility] Basophils Auto (Bld) [#/Vol] Ordered By: Carla Hagan on 12-31-2022 Basophils (Bld) [#/Vol] N/A [facility] Basophils/100 WBC Auto (Bld) Ordered By: Carla Hagan on 12-31-2022 Basophils/100 WBC (Bld) N/A [facility] Basophils/100 WBC Manual cnt (Bld)Ordered By: Carla Hagan on 12-31-2022 Basophils/100 WBC (Bld) 1 % 0-2 [facility] Calcium [Mass/volume] in Ser um or PlasmaOrdered By: Carla Hagan on 12-31-2022 Calcium [Mass/Vol] 8.6 mg/dL 8.2-10.2 [facility] Carbon dioxide, total [Moles /volume] in Serum or PlasmaOrdered By: Carla Hagan on 12-31-2022 CO2 [Moles/Vol] 26.2 mmol/L 22.0-30.0 [facility] Chloride [Moles/volume] in S kaveh or PlasmaOrdered By: Carla Hagan on 12-31-2022 Chloride [Moles/Vol] 99 mmol/L 95-114 [facility] Creatinine and Glomerular fi ltration rate.predicted panel (S/P/Bld)Ordered By: Carla Hagan on 12-31-2022 Creatinine [Mass/Vol] 0.99 mg/dL 0.44-1.03 [facility] Eosinophils Auto (Bld) [#/Vo l]Ordered By: Carla Hagan on 12-31-2022 Eosinophils (Bld) [#/Vol] N/A [facility] Eosinophils/100 WBC Auto (Bl d)Ordered By: Carla Hagan on 12-31-2022 Eosinophils/100 WBC (Bld) N/A [facility] Eosinophils/100 WBC Manual c nt (Bld)Ordered By: Carla Hagan on 12-31-2022 Eosinophils/100 WBC (Bld) 1 % 1-3 [facility] Erythrocyte distribution wid th Auto (RBC) [Ratio]Ordered By: Carla Hagan on 12-31-2022 Erythrocyte distribution width (RBC) [Ratio] 15.7 % 11.9-15.3 [facility] Estimated glomerular filtrat ion rate (GFR) non- AmericanOrdered By: Carla Hagan on 12-31-2022 GFR/1.73 sq M.predicted among non-blacks MDRD (S/P/Bld) [Vol rate/Area] 54 mL/Min [facility] Giant platelets/100 leukocyt es [Ratio] in Blood by Manual countOrdered By: Carla Hagan on 12-31-2022 Giant platelets/100 WBC Manual cnt (Bld) [Ratio] 1 /100{WBC} [facility] Glucose [Mass/volume] in Ser um or PlasmaOrdered By: Carla Hagan on 12-31-2022 Glucose [Mass/Vol] 115 mg/dL 70-100 [facility] Comment on above: ADA recommended refe rence rangeRandom Glucose Reference Range is dependent on time and content of last meal. Glucose of more than 200 mg/dL in a nonstressed, ambulatory subject supports the diagnosis of Diabetes Mellitus. Helmet cell detectionOrdered By: Carla Hagan on 12-31-2022 Helmet cells LM Ql (Bld) Slight [facility] Hematocrit Auto (Bld) [Volum e fraction]Ordered By: Carla Hagan on 12-31-2022 Hematocrit (Bld) [Volume fraction] 30.2 % 34.0-46.4 [facility] Hemoglobin [Mass/volume] in BloodOrdered By: Carla Hagan on 12-31-2022 Hemoglobin (Bld) [Mass/Vol] 9.8 g/dL 11.8-15.4 [facility] Hypochromia LM Ql (Bld)Order ed By: Carla Hagan on 12-31-2022 Hypochromia Ql (Bld) Slight [facility] Laboratory - Chemistry and C hemistry - challengeOrdered By: Carla Hagan on 12-31-2022 Magnesium [Mass/Vol] 1.5 mg/dL 1.6-2.6 [facility] Leukocytes [#/volume] correc juma for nucleated erythrocytes in Blood by Automated counOrdered By: Carla Hagan on 12-31-2022 WBC corrected for nucl RBC Auto (Bld) [#/Vol] 13.4 10*3/uL 3.8-11.6 [facility] Lymphocytes Auto (Bld) [#/Vo l]Ordered By: Carla Hagan on 12-31-2022 Lymphocytes (Bld) [#/Vol] N/A [facility] Lymphocytes/100 WBC Auto (Bl d)Ordered By: Carla Hagan on 12-31-2022 Lymphocytes/100 WBC (Bld) N/A [facility] Lymphocytes/100 WBC Manual c nt (Bld)Ordered By: Carla Hagan on 12-31-2022 Lymphocytes/100 WBC (Bld) 8 % 18-42 [facility] MCH Auto (RBC) [Entitic mass ]Ordered By: Carla Hagan on 12-31-2022 MCH (RBC) [Entitic mass] 25.3 pg 24.7-34.3 [facility] MCHC Auto (RBC) [Mass/Vol]Or dered By: Carla Hagan on 12-31-2022 MCHC (RBC) [Mass/Vol] 32.3 g/dL 32.0-35.0 [facility] MCV Auto (RBC) [Entitic vol] Ordered By: Carla Hagan on 12-31-2022 MCV (RBC) [Entitic vol] 78.2 fL 80-100 [facility] Microcytes LM Ql (Bld)Ordere d By: Carla Hagan on 12-31-2022 Microcytes Ql (Bld) Moderate [facility] Monocytes Auto (Bld) [#/Vol] Ordered By: Carla Hagan on 12-31-2022 Monocytes (Bld) [#/Vol] N/A [facility] Monocytes/100 WBC Auto (Bld) Ordered By: Carla Hagan on 12-31-2022 Monocytes/100 WBC (Bld) N/A [facility] Monocytes/100 WBC Manual cnt (Bld)Ordered By: Carla Hagan on 12-31-2022 Monocytes/100 WBC (Bld) 5 % 2-11 [facility] Neutrophils Auto (Bld) [#/Vo l]Ordered By: Carla Hagan on 12-31-2022 Neutrophils (Bld) [#/Vol] N/A [facility] Neutrophils/100 WBC Auto (Bl d)Ordered By: Carla Hagan on 12-31-2022 Neutrophils/100 WBC (Bld) N/A [facility] No Panel InformationOrdered By: Carla Hagan on 12-31-2022 Estimated GFR () > 60 mL/Min [facility] Comment on above: GFR estimated refere nce range: According to KDOQI guidelines, <60 ml/min/1.73m2 is sufficient to diagnose a patient with chronic kidney disease. Pharmacy Creatinine Clearance (Chem 45.60 [facility] Nucleated erythrocytes [Pres ence] in Blood by Automated countOrdered By: Carla Hagan on 12-31-2022 Nucleated RBC Auto Ql (Bld) N/A [facility] Phosphate [Mass/volume] in S kaveh or PlasmaOrdered By: Carla Hagan on 12-31-2022 Phosphate [Mass/Vol] 3.5 mg/dL 2.5-4.6 [facility] Platelet adequacy [Presence] in Blood by Light microscopyOrdered By: Carla Hagan on 12-31-2022 Platelets LM Ql (Bld) Normal Normal [facility] Platelet mean volume Auto (B ld) [Entitic vol]Ordered By: Carla Hagan on 12-31-2022 Platelet mean volume (Bld) [Entitic vol] 6.6 fL 6.3-10.7 [facility] Platelet morphology finding [Identifier] in BloodOrdered By: Carla Hagan on 12-31-2022 Platelet morphology finding Nom (Bld) Normal Normal [facility] Platelets Auto (Bld) [#/Vol] Ordered By: Carla Hagan on 12-31-2022 Platelets (Bld) [#/Vol] 447 10*3/uL 150-450 [facility] Poikilocytosis [Presence] in Blood by Light microscopyOrdered By: Carla Hagan on 12-31-2022 Poikilocytosis LM Ql (Bld) Slight [facility] Polychromasia [Presence] in Blood by Light microscopyOrdered By: Carla Hagan on 12-31-2022 Polychromasia LM Ql (Bld) Slight [facility] Potassium [Moles/volume] in Serum or PlasmaOrdered By: Carla Hagan on 12-31-2022 Potassium [Moles/Vol] 4.1 mmol/L 3.5-5.1 [facility] RBC Auto (Bld) [#/Vol]Ordere d By: Carla Hagan on 12-31-2022 RBC (Bld) [#/Vol] 3.86 10*6/uL 3.60-5.00 [facility] RBC morphologyOrdered By: Ra carey Hagan on 12-31-2022 RBC morphology finding Nom (Bld) N/A [facility] Segmented neutrophils/100 WB C Manual cnt (Bld)Ordered By: Carla Hagan on 12-31-2022 Segmented neutrophils/100 WBC (Bld) 86 % 50-70 [facility] Serum or plasma anion gap de terminationOrdered By: Carla Hagan on 12-31-2022 Anion gap [Moles/Vol] 12.9 mmol/L 6.0-15.0 [facility] Sodium [Moles/volume] in Ser um or PlasmaOrdered By: Carla Hagan on 12-31-2022 Sodium [Moles/Vol] 134 mmol/L 136-146 [facility] Urea nitrogen [Mass/volume] in Serum or PlasmaOrdered By: Carla Hagan on 12-31-2022 Urea nitrogen [Mass/Vol] 18 mg/dL 9 [facility] WBC Auto (Bld) [#/Vol]Ordere d By: Carla Hagan on 12-31-2022 WBC (Bld) [#/Vol] 13.4 10*3/uL 3.8-11.6 [facility] Creatine kinase [Enzymatic a ctivity/volume] in Serum or PlasmaOrdered By: Carla Hagan on 12-28-2022 CK [Catalytic activity/Vol] 108 U/L 22 [facility] Automated epithelial cells c ount in urine sediment (number/area)Ordered By: Maddy Morrissey on 12-27-2022 Epithelial cells Auto (Urine sed) [#/Area] 3-4 [HPF] 0-2 [facility] Automated erythrocytes count in urine sediment (number/area)Ordered By: Maddy Morrissey on 12-27-2022 RBC Auto (Urine sed) [#/Area] 0-1 [HPF] 0-4 [facility] Automated leukocytes count i n urine sediment (number/area)Ordered By: Maddy Morrissey on 12-27-2022 WBC Auto (Urine sed) [#/Area] 5-9 [HPF] 0-4 [facility] Bilirubin Test strip Ql (U)O rdered By: Maddy Morrissey on 12-27-2022 Bilirubin Ql (U) Negative Negative [facility] Color Auto (U)Ordered By: Corwin Morrissey on 12-27-2022 Color (U) Yellow Yellow [facility] Folate [Mass/volume] in Seru m or PlasmaOrdered By: Eve Mann on 12-27-2022 Folate [Mass/Vol] ng/mL >5.9 [facility] Comment on above: Folate reference ran ge: >5.9 ng/mlThe WHO technical consultation on folate and vitamin [id number] has determined that folate concentrations lessthan 4 ng/ml are considered deficient. Ketones Auto test strip (U) [Mass/Vol]Ordered By: Maddy Morrissey on 12-27-2022 Ketones (U) [Mass/Vol] Negative Negative [facility] Laboratory - Chemistry and C hemistry - challengeOrdered By: Eve Mann on 12-27-2022 Cobalamin (Vitamin B12) [Mass/Vol] 994 pg/mL 180-914 [facility] Nitrite Test strip Ql (U)Ord ered By: Maddy Morrissey on 12-27-2022 Nitrite Ql (U) Positive Negative [facility] Protein Auto test strip (U) [Mass/Vol]Ordered By: Maddy Morrissey on 12-27-2022 Protein (U) [Mass/Vol] Trace mg/dL Negative F [facility] Specific gravity Auto test s trip (U) [Rel density]Ordered By: Maddy Morrissey on 12-27-2022 Specific gravity (U) [Rel density] > 1.050 1.001-1.03 0 [facility] Urine bacteria detection by automated methodOrdered By: Maddy Morrissey on 12-27-2022 Bacteria Auto Ql (U) 2+ None Seen [facility] Urine clarity by refractomet ry automatedOrdered By: Maddy Morrissey on 12-27-2022 Clarity Refractometry automated (U) Cloudy Clear [facility] Urine culture routineOrdered By: Maddy Morrissey on 12-27-2022 Bacteria identified Cx Nom (U) Escherichia coli [facility] Urine glucose measurement by automated test strip (mass/volume)Ordered By: Maddy Morrissey on 12-27-2022 Glucose Auto test strip (U) [Mass/Vol] Normal mg/dL Normal [facility] Urine hemoglobin detection b y automated test stripOrdered By: Maddy Morrissey on 12-27-2022 Hemoglobin Auto test strip Ql (U) Trace Negative [facility] Urine leukocyte esterase det ection by automated test stripOrdered By: Maddy Morrissey on 12-27-2022 Leukocyte esterase Auto test strip Ql (U) 3+ Negative [facility] Urobilinogen Auto test strip (U) [Mass/Vol]Ordered By: Maddy Morrissey on 12-27-2022 Urobilinogen (U) [Mass/Vol] Normal mg/dL Normal [facility] pH Auto test strip (U)Ordere d By: Maddy Morrissey on 12-27-2022 pH (U) 5.0 [pH] 5.0-9.0 [facility] Activated partial thrombopla stin time (aPTT) in platelet poor plasma by coagulation aOrdered By: Maddy Morrissey on 12-26-2022 aPTT Coag (PPP) [Time] 30.8 s 25.1-36.5 [facility] Basophils Auto (Bld) [#/Vol] Ordered By: Maddy Morrissey on 12-26-2022 Basophils (Bld) [#/Vol] 0.1 10*3/uL 0.0-0.2 [facility] Basophils/100 WBC Auto (Bld) Ordered By: Maddy Morrissey on 12-26-2022 Basophils/100 WBC (Bld) 0.5 % . [facility] Calcium [Mass/volume] in Ser um or PlasmaOrdered By: Maddy Morrissey on 12-26-2022 Calcium [Mass/Vol] 9.0 mg/dL 8.2-10.2 [facility] Carbon dioxide, total [Moles /volume] in Serum or PlasmaOrdered By: Maddy Morrissey on 12-26-2022 CO2 [Moles/Vol] 25.8 mmol/L 22.0-30.0 [facility] Chloride [Moles/volume] in S kaveh or PlasmaOrdered By: Maddy Morrissey on 12-26-2022 Chloride [Moles/Vol] 104 mmol/L 95-114 [facility] Creatinine and Glomerular fi ltration rate.predicted panel (S/P/Bld)Ordered By: Maddy Morrissey on 12-26-2022 Creatinine [Mass/Vol] 1.22 mg/dL 0.44-1.03 [facility] Eosinophils Auto (Bld) [#/Vo l]Ordered By: Maddy Morrissey on 12-26-2022 Eosinophils (Bld) [#/Vol] 0.1 10*3/uL 0.0-0.45 [facility] Eosinophils/100 WBC Auto (Bl d)Ordered By: Maddy Morrissey on 12-26-2022 Eosinophils/100 WBC (Bld) 1.1 % . [facility] Erythrocyte distribution wid th Auto (RBC) [Ratio]Ordered By: Maddy Morrissey on 12-26-2022 Erythrocyte distribution width (RBC) [Ratio] 15.9 % 11.9-15.3 [facility] Estimated glomerular filtrat ion rate (GFR) non- AmericanOrdered By: Maddy Morrissey on 12-26-2022 GFR/1.73 sq M.predicted among non-blacks MDRD (S/P/Bld) [Vol rate/Area] 43 mL/Min [facility] Glucose [Mass/volume] in Ser um or PlasmaOrdered By: Maddy Morrissey on 12-26-2022 Glucose [Mass/Vol] 128 mg/dL 70-100 [facility] Comment on above: ADA recommended refe rence rangeRandom Glucose Reference Range is dependent on time and content of last meal. Glucose of more than 200 mg/dL in a nonstressed, ambulatory subject supports the diagnosis of Diabetes Mellitus. Hematocrit Auto (Bld) [Volum e fraction]Ordered By: Maddy Morrissey on 12-26-2022 Hematocrit (Bld) [Volume fraction] 29.7 % 34.0-46.4 [facility] Hemoglobin [Mass/volume] in BloodOrdered By: Maddy Morrissey on 12-26-2022 Hemoglobin (Bld) [Mass/Vol] 9.3 g/dL 11.8-15.4 [facility] Laboratory - Chemistry and C hemistry - challengeOrdered By: Maddy Morrissey on 12-26-2022 Natriuretic peptide B (Bld) [Mass/Vol] 49.0 pg/mL 5-100 [facility] Laboratory - CoagulationOrde red By: Maddy Morrissey on 12-26-2022 PT Coag (PPP) [Time] 14.5 s 9.0-12.9 [facility] Leukocytes [#/volume] correc juma for nucleated erythrocytes in Blood by Automated counOrdered By: Maddy Morrissey on 12-26-2022 WBC corrected for nucl RBC Auto (Bld) [#/Vol] 12.0 10*3/uL 3.8-11.6 [facility] Lymphocytes Auto (Bld) [#/Vo l]Ordered By: Maddy Morrissey on 12-26-2022 Lymphocytes (Bld) [#/Vol] 3.0 10*3/uL 1.00-4.8 [facility] Lymphocytes/100 WBC Auto (Bl d)Ordered By: Maddy Morrissey on 12-26-2022 Lymphocytes/100 WBC (Bld) 24.8 % . [facility] MCH Auto (RBC) [Entitic mass ]Ordered By: Maddy Morrissey on 12-26-2022 MCH (RBC) [Entitic mass] 24.8 pg 24.7-34.3 [facility] MCHC Auto (RBC) [Mass/Vol]Or dered By: Maddy Morrissey on 12-26-2022 MCHC (RBC) [Mass/Vol] 31.2 g/dL 32.0-35.0 [facility] MCV Auto (RBC) [Entitic vol] Ordered By: Maddy Morrissey on 12-26-2022 MCV (RBC) [Entitic vol] 79.4 fL 80-100 [facility] Monocyte distribution width [Entitic volume] in Blood by AutomatedOrdered By: Maddy Morrissey on 12-26-2022 Monocyte distribution width Auto (Bld) [Entitic vol] 20.22 % 0.00-20.00 [facility] Comment on above: For adults in ED, MD W > 20.0 may be associated with a higher risk of sepsis during the first 12 hrs of hospital admission Monocytes Auto (Bld) [#/Vol] Ordered By: Maddy Morrissey on 12-26-2022 Monocytes (Bld) [#/Vol] 1.2 10*3/uL 0.0-0.8 [facility] Monocytes/100 WBC Auto (Bld) Ordered By: Maddy Morrissey on 12-26-2022 Monocytes/100 WBC (Bld) 10.1 % . [facility] Neutrophils Auto (Bld) [#/Vo l]Ordered By: Maddy Morrissey on 12-26-2022 Neutrophils (Bld) [#/Vol] 7.6 10*3/uL 1.8-7.7 [facility] Neutrophils/100 WBC Auto (Bl d)Ordered By: Maddy Morrissey on 12-26-2022 Neutrophils/100 WBC (Bld) 63.5 % . [facility] No Panel InformationOrdered By: Maddy Morrissey on 12-26-2022 Estimated GFR () 52 mL/Min [facility] Comment on above: GFR estimated refere nce range: According to KDOQI guidelines, <60 ml/min/1.73m2 is sufficient to diagnose a patient with chronic kidney disease. Pharmacy Creatinine Clearance (Chem 37.20 [facility] Nucleated erythrocytes [Pres ence] in Blood by Automated countOrdered By: Maddy Morrissey on 12-26-2022 Nucleated RBC Auto Ql (Bld) 0.1 /100{WBC} 0-0.5 [facility] Platelet mean volume Auto (B ld) [Entitic vol]Ordered By: Maddy Morrissey on 12-26-2022 Platelet mean volume (Bld) [Entitic vol] 6.5 fL 6.3-10.7 [facility] Platelet poor plasma interna tional normalized ratio (INR) by coagulation assay (relatOrdered By: Maddy Morrsisey on 12-26-2022 INR Coag (PPP) [Relative time] 1.3 {INR} [facility] Comment on above: INR Therapeutic [...] 12-26-2022 Platelets (Bld) [#/Vol] 450 10*3/uL 150-450 [facility] Potassium [Moles/volume] in Serum or PlasmaOrdered By: Maddy Morrissey on 12-26-2022 Potassium [Moles/Vol] 3.9 mmol/L 3.5-5.1 [facility] RBC Auto (Bld) [#/Vol]Ordere d By: Maddy Morrissey on 12-26-2022 RBC (Bld) [#/Vol] 3.74 10*6/uL 3.60-5.00 [facility] Serum or plasma anion gap de terminationOrdered By: Maddy Morrissey on 12-26-2022 Anion gap [Moles/Vol] 10.1 mmol/L 6.0-15.0 [facility] Sodium [Moles/volume] in Ser um or PlasmaOrdered By: Maddy Morrissey on 12-26-2022 Sodium [Moles/Vol] 136 mmol/L 136-146 [facility] Troponin I.cardiac [Mass/vol ume] in Serum or Plasma by High sensitivity methodOrdered By: Maddy Morrissey on 12-26-2022 Troponin I.cardiac High sensitivity method [Mass/Vol] 6 pg/mL 0-15 [facility] Urea nitrogen [Mass/volume] in Serum or PlasmaOrdered By: Maddy Morrissey on 12-26-2022 Urea nitrogen [Mass/Vol] 21 mg/dL 9-23 [facility] WBC Auto (Bld) [#/Vol]Ordere d By: Maddy Morrissey on 12-26-2022 WBC (Bld) [#/Vol] 12.0 10*3/uL 3.8-11.6 [facility] Basophils Auto (Bld) [#/Vol] Ordered By: Hilario Yeung on 05-31-2022 Basophils (Bld) [#/Vol] 0.0 10*3/uL 0.0-0.2 [facility] Basophils/100 WBC Auto (Bld) Ordered By: Hilario Yeung on 05-31-2022 Basophils/100 WBC (Bld) 0.7 % . [facility] Blood hemoglobin measurement (mass/volume)Ordered By: Hilario Yeung on 05-31-2022 Hemoglobin (Bld) [Mass/Vol] 11.6 g/dL 11.8-15.4 [facility] Blood leukocytes automated c ount (number/volume)Ordered By: Hilario Yeung on 05-31-2022 WBC (Bld) [#/Vol] 5.9 10*3/uL 4.5-11.0 [facility] Creatinine and Glomerular fi ltration rate.predicted panel (S/P/Bld)Ordered By: Hilario Yeung on 05-31-2022 Creatinine [Mass/Vol] 1.22 mg/dL 0.44-1.03 [facility] Eosinophils Auto (Bld) [#/Vo l]Ordered By: Hilario Yeung on 05-31-2022 Eosinophils (Bld) [#/Vol] 0.3 10*3/uL 0.0-0.45 [facility] Eosinophils/100 WBC Auto (Bl d)Ordered By: Hilario Yeung on 05-31-2022 Eosinophils/100 WBC (Bld) 4.4 % . [facility] Erythrocyte distribution wid th Auto (RBC) [Ratio]Ordered By: Hilario Yeung on 05-31-2022 Erythrocyte distribution width (RBC) [Ratio] 16.9 % 11.9-15.3 [facility] Estimated glomerular filtrat ion rate (GFR) non- AmericanOrdered By: Hilario Yeung on 05-31-2022 GFR/1.73 sq M.predicted among non-blacks MDRD (S/P/Bld) [Vol rate/Area] 43 mL/Min [facility] Hematocrit Auto (Bld) [Volum e fraction]Ordered By: Hilario Yeung on 05-31-2022 Hematocrit (Bld) [Volume fraction] 36.6 % 34.0-46.4 [facility] Laboratory - Hematology and Cell countsOrdered By: Hilario Yeung on 05-31-2022 Nucleated RBC/100 WBC (Bld) [Ratio] 0.1 % 0-0.5 [facility] Lymphocytes Auto (Bld) [#/Vo l]Ordered By: Hilario Yeung on 05-31-2022 Lymphocytes (Bld) [#/Vol] 2.4 10*3/uL 1.00-4.8 [facility] Lymphocytes/100 WBC Auto (Bl d)Ordered By: Hilario Yeung on 05-31-2022 Lymphocytes/100 WBC (Bld) 41.3 % . [facility] MCH Auto (RBC) [Entitic mass ]Ordered By: Hilario Yeung on 05-31-2022 MCH (RBC) [Entitic mass] 25.8 pg 24.7-34.3 [facility] MCHC Auto (RBC) [Mass/Vol]Or dered By: Hilario Yeung on 05-31-2022 MCHC (RBC) [Mass/Vol] 31.7 g/dL 32.0-35.0 [facility] MCV Auto (RBC) [Entitic vol] Ordered By: Hilario Yeung on 05-31-2022 MCV (RBC) [Entitic vol] 81.4 fL 80-100 [facility] Monocytes Auto (Bld) [#/Vol] Ordered By: Hilario Yeung on 05-31-2022 Monocytes (Bld) [#/Vol] 0.6 10*3/uL 0.0-0.8 [facility] Monocytes/100 WBC Auto (Bld) Ordered By: Hilario Yeung on 05-31-2022 Monocytes/100 WBC (Bld) 10.6 % . [facility] Neutrophils Auto (Bld) [#/Vo l]Ordered By: Hilario Yeung on 05-31-2022 Neutrophils (Bld) [#/Vol] 2.5 10*3/uL 1.8-7.7 [facility] Neutrophils/100 WBC Auto (Bl d)Ordered By: Hilario Yeung on 05-31-2022 Neutrophils/100 WBC (Bld) 43.0 % . [facility] No Panel InformationOrdered By: Hilario Yeung on 05-31-2022 Estimated GFR () 52 mL/Min [facility] Comment on above: GFR estimated refere nce range: According to KDOQI guidelines, <60 ml/min/1.73m2 is sufficient to diagnose a patient with chronic kidney disease. Pharmacy Creatinine Clearance (Chem 39.11 [facility] Platelet mean volume Auto (B ld) [Entitic vol]Ordered By: Hilario Yeung on 05-31-2022 Platelet mean volume (Bld) [Entitic vol] 7.5 fL 6.3-10.7 [facility] Platelets Auto (Bld) [#/Vol] Ordered By: Hilario Yeung on 05-31-2022 Platelets (Bld) [#/Vol] 209 10*3/uL 150-450 [facility] RBC Auto (Bld) [#/Vol]Ordere d By: Hilario Yeung on 05-31-2022 RBC (Bld) [#/Vol] 4.50 10*6/uL 3.60-5.00 [facility] Serum or plasma calcium roly urement (mass/volume)Ordered By: Hilario Yeung on 05-31-2022 Calcium [Mass/Vol] 9.1 mg/dL 8.2-10.2 [facility] Serum or plasma chloride deirdre surement (moles/volume)Ordered By: Hilario Yeung on 05-31-2022 Chloride [Moles/Vol] 100 mmol/L 95-114 [facility] Serum or plasma glucose roly urement (mass/volume)Ordered By: Hilario Yeung on 05-31-2022 Glucose [Mass/Vol] 99 mg/dL 70-100 [facility] Comment on above: ADA recommended refe rence range Random Glucose Reference Range is dependent on time and content of last meal. Glucose of more than 200 mg/dL in a nonstressed, ambulatory subject supports the diagnosis of Diabetes Mellitus. Serum or plasma potassium me asurement (moles/volume)Ordered By: Hilario Yeung on 05-31-2022 Potassium [Moles/Vol] 4.2 mmol/L 3.5-5.1 [facility] Serum or plasma sodium measu rement (moles/volume)Ordered By: Hilario Yeung on 05-31-2022 Sodium [Moles/Vol] 138 mmol/L 136-146 [facility] Serum or plasma total carbon dioxide measurement (moles/volume)Ordered By: Hilario Yeung on 05-31-2022 CO2 [Moles/Vol] 29.7 mmol/L 22.0-30.0 [facility] Serum or plasma urea nitroge n measurement (mass/volume)Ordered By: Hilario Yeung on 05-31-2022 Urea nitrogen [Mass/Vol] 13 mg/dL 9-23 [facility] SCREENING MAMMOGRAM W/[place], BILATERAL*on 04-27-2022 [...] VERY IMPORTANT TO YOUR HEALTH. THE CURRENT [place] [employer] [...] [facility] CT Low Dose Lung Screeningon 04-26-2022 CT [...] [facility] XR Hip Complete Left*on 02-25 XR Hip [...] by Wicho Bowman on 03/14/2022 1550 Normal [facility] Pediatric Neurologist XR Spine Lumbar 4+ Views*on 03-14-2022 XR [...] by Wicho Bowman on 03/14/2022 1546 Normal [facility] Specialist CNPTOUTREACHon 12-20-2020 [facility] ([facility]) -- GERA PERDUE ([id number]) 1945 F Date Time Provider Department 12/20/20 DERICK LOPEZ During your visit today, we recorded the following information about you: Allergies As of Date: 12/20/2020 Noted Allergy Reaction ASPRIN (ASPIRIN) 03/02/2019 1 - Mental Status Change Date Reviewed: 05/04/2020 Reviewed by: Prasad Phillips - Fully Assessed Order(s):SARS-COVID VACCINE 1ST DOSE APPT [[id number]] Order #: [id number] FUTURE Prescriptions as of 12/20/2020 Sig: HYDROCODONE [...] [E66.9] 02/25/2015 Letter Text Encounter Status:Closed by [employer] on 12/23/20 [facility] PROGRESSon 05-03-2020 PROGRESS HNO ID: [id number] Author: Prasad Phillips Service: ? Author Type: Physician Type: Progress Notes Filed: 05/04/2020 8:19 PM Note Text: Gera Perdue : 1945 Assisted: [facility] PCP: guanako Date last seen: [...] of right foot Prasad Phillips DPM Normal [facility] CBC Auto Differentialon 10-0 Basophils (Bld) [#/Vol] 0.03 10*3/uL [place] Basophils/100 WBC (Bld) 0 % 0 - 2 % [place] Differential Type NOT REPORTED [place] Eosinophils (Bld) [#/Vol] 0.14 10*3/uL [place] Eosinophils/100 WBC (Bld) 2 % 1 - 4 % [place] Erythrocyte distribution width (RBC) [Ratio] 15.0 % High 11.8 - 14.4 % [place] Hematocrit (Bld) [Volume fraction] 32.7 % Low 36.3 - 47.1 % [place] Hemoglobin (Bld) [Mass/Vol] 9.9 g/dL Low 11.9 - 15.1 g/dL [place] Immature granulocytes (Bld) [#/Vol] 0.03 10*3/uL [place] Immature granulocytes (Bld) [#/Vol] 0 % 0 [place] Interpretation and review of laboratory results Abnormal [place] Lymphocytes (Bld) [#/Vol] 1.67 10*3/uL [place] Lymphocytes/100 WBC (Bld) 22 % Low 24 - 43 % [place] MCH (RBC) [Entitic mass] 27.7 pg 25.2 - 33.5 pg [place] MCHC (RBC) [Mass/Vol] 30.3 g/dL 28.4 - 34.8 g/dL [place] MCV (RBC) [Entitic vol] 91.3 fL 82.6 - 102.9 fL [place] Monocytes (Bld) [#/Vol] 1.00 10*3/uL [place] Monocytes/100 WBC (Bld) 13 % High 3 - 12 % [place] Platelet mean volume (Bld) [Entitic vol] 9.1 fL 8.1 - 13.5 fL [place] Platelets (Bld) [#/Vol] 184 10*3/uL [place] Platelets (Bld) [#/Vol] NOT REPORTED [place] RBC (Bld) [#/Vol] 3.58 10*6/uL Low 3.95 - 5.11 m/uL [place] RBC morphology finding Nom (Bld) ANISOCYTOSIS PRESENT [place] Segmented neutrophils/100 WBC (Bld) 63 % 36 - 65 % [place] Segs Absolute 4.63 [place] WBC (Bld) [#/Vol] 7.5 10*3/uL [place] WBC (Bld) [#/Vol] 0.0 10*3/uL 0.0 per 100 WBC [place] WBC Morphology NOT REPORTED [place] CBC with Diffon 08-04-2019 Abs. Basophil 0.03 k/uL Normal 0.00-0.20 [facility] Comment on above: Performed By: #### C DP #### [facility] [address] [place], [place] [id number] Gem Setter: Juan Perera MD Abs.Imm.Granulocyte 0.03 k/uL Normal 0.00-0.30 [facility] Comment on above: Performed By: #### C DP #### [facility] [address] [place], [place] [id number] Gem Setter: Juan Perera MD Abs.Neutrophil (Seg) 4.63 k/uL Normal 1.50-8.10 [facility] Comment on above: Performed By: #### C DP #### [address] [place] [address] Gem Setter: Juan Perera MD Basophils/100 WBC (Bld) 0 % Normal 0-2 [facility] Comment on above: Performed By: #### C DP #### [address] [address] Gem Setter: Juan Perera MD Eosinophils (Bld) [#/Vol] 0.14 10*3/uL Normal 0.00-0.44 [facility] Comment on above: Performed By: #### C DP #### [address] [address] Gem Setter: Juan Perera MD Eosinophils/100 WBC (Bld) 2 % Normal 1-4 [facility] Comment on above: Performed By: #### C DP #### [address] [address] Gem Setter: Juan Perera MD Erythrocyte distribution width (RBC) [Ratio] 15.0 % High 11.8-14.4 [facility] Comment on above: Performed By: #### C DP #### [address] [address] Gem Setter: Juan Perera MD Hematocrit (Bld) [Volume fraction] 32.7 % Low 36.3-47.1 [facility] Comment on above: Performed By: #### C DP #### [address] [address] Gem Setter: Juan Perera MD Hemoglobin (Bld) [Mass/Vol] 9.9 g/dL Low 11.9-15.1 [facility] Comment on above: Performed By: #### C DP #### [address] [address] Gem Setter: Juan Perera MD Immature granulocytes (Bld) [#/Vol] 0 % Normal 0 [facility] Comment on above: Performed By: #### C DP #### [address] [address] Gem Setter: Juan Perera MD Lymphocytes (Bld) [#/Vol] 1.67 10*3/uL Normal 1.10-3.70 [facility] Comment on above: Performed By: #### C DP #### [place] [address] Gem Setter: Juan Perera MD Lymphocytes/100 WBC (Bld) 22 % Low 24-43 [facility] Comment on above: Performed By: #### C DP #### [place] [address] Gem Setter: Juan Perera MD MCH (RBC) [Entitic mass] 27.7 pg Normal 25.2-33.5 [facility] Comment on above: Performed By: #### C DP #### [place] [address] Gem Setter: Juan Perera MD MCHC (RBC) [Mass/Vol] 30.3 g/dL Normal 28.4-34.8 [facility] Comment on above: Performed By: #### C DP #### [place] [address] Gem Setter: Juan Perera MD MCV (RBC) [Entitic vol] 91.3 fL Normal 82.6-102.9 [facility] Comment on above: Performed By: #### C DP #### [place] [address] Gem Setter: Juan Perera MD Monocytes (Bld) [#/Vol] 1.00 10*3/uL Normal 0.10-1.20 [facility] Comment on above: Performed By: #### C DP #### [address] [address] Gem Setter: Juan Perera MD Monocytes/100 WBC (Bld) 13 % High 3-12 [facility] Comment on above: Performed By: #### C DP #### [address] [address] Gem Setter: Juan Perera MD Neutrophil (Seg) 63 % Normal 36-65 [facility] Comment on above: Performed By: #### C DP #### [address] [address] Gem Setter: Juan Perera MD NRBC Automated 0.0 per 100 WBC Normal 0.0 [facility] Comment on above: Performed By: #### C DP #### [address] [address] Gem Setter: Juan Perera MD Platelet mean volume (Bld) [Entitic vol] 9.1 fL Normal 8.1-13.5 [facility] Comment on above: Performed By: #### C DP #### [address] [address] Gem Setter: Juan Perera MD Platelets (Bld) [#/Vol] 184 10*3/uL Normal 138-453 [facility] Comment on above: Performed By: #### C DP #### [address] [address] Gem Setter: Juan Perera MD RBC (Bld) [#/Vol] 3.58 10*6/uL Low 3.95-5.11 [facility] Comment on above: Performed By: #### C DP #### [address] [address] Gem Setter: Juan Perera MD RBC morphology finding Nom (Bld) ANISOCYTOSIS PRESENT Normal [facility] Comment on above: Performed By: #### C DP #### [address] [address] Gem Setter: Juan Perera MD WBC (Bld) [#/Vol] 7.5 10*3/uL Normal 3.5-11.3 [facility] Comment on above: Performed By: #### C DP #### [address] [address] Gem Setter: Juan Perera MD Auto Diff Performed NOT REPORTED Normal [facility] Comment on above: Performed By: #### C DP #### [address] [address] Gem Setter: Juan Perera MD Platelets (Bld) [#/Vol] NOT REPORTED Normal [facility] Comment on above: Performed By: #### C DP #### [address] [address] Gem Setter: Juan Perera MD WBC Morphology NOT REPORTED Normal [facility] Comment on above: Performed By: #### C DP #### [address] [address] Gem Setter: Juan Perera MD CBC Auto Differentialon Basophils (Bld) [#/Vol] 0.04 10*3/uL [place] Basophils/100 WBC (Bld) 1 % 0 - 2 % [place] Differential Type NOT REPORTED [place] Eosinophils (Bld) [#/Vol] 0.19 10*3/uL [place] Eosinophils/100 WBC (Bld) 2 % 1 - 4 % [place] Erythrocyte distribution width (RBC) [Ratio] 15.5 % High 11.8 - 14.4 % [place] Hematocrit (Bld) [Volume fraction] 37.6 % 36.3 - 47.1 % [place] Hemoglobin (Bld) [Mass/Vol] 11.4 g/dL Low 11.9 - 15.1 g/dL [place] Immature granulocytes (Bld) [#/Vol] 10*3/uL [place] Immature granulocytes (Bld) [#/Vol] 0 % 0 [place] Interpretation and review of laboratory results Abnormal [place] Lymphocytes (Bld) [#/Vol] 1.70 10*3/uL [place] Lymphocytes/100 WBC (Bld) 22 % Low 24 - 43 % [place] MCH (RBC) [Entitic mass] 27.8 pg 25.2 - 33.5 pg [place] MCHC (RBC) [Mass/Vol] 30.3 g/dL 28.4 - 34.8 g/dL [place] MCV (RBC) [Entitic vol] 91.7 fL 82.6 - 102.9 fL [place] Monocytes (Bld) [#/Vol] 0.92 10*3/uL [place] Monocytes/100 WBC (Bld) 12 % 3 - 12 % [place] Platelet mean volume (Bld) [Entitic vol] 9.4 fL 8.1 - 13.5 fL [place] Platelets (Bld) [#/Vol] NOT REPORTED [place] Platelets (Bld) [#/Vol] 199 10*3/uL [place] RBC (Bld) [#/Vol] 4.10 10*6/uL 3.95 - 5.11 m/uL [place] RBC morphology finding Nom (Bld) ANISOCYTOSIS PRESENT [place] Segmented neutrophils/100 WBC (Bld) 63 % 36 - 65 % [place] Segs Absolute 4.97 [place] WBC (Bld) [#/Vol] 0.0 10*3/uL 0.0 per 100 WBC [place] WBC (Bld) [#/Vol] 7.8 10*3/uL [place] WBC Morphology NOT REPORTED [place] CBC with Diffon 10-07-2019 Abs. Basophil 0.04 k/uL Normal 0.00-0.20 [facility] Comment on above: Performed By: #### C DP, CP #### [address] [address] Gem Setter: Juan Perera MD Abs.Imm.Granulocyte <0.03 Normal 0.00-0.30 [facility] Comment on above: Performed By: #### C DP, CP #### [address] [address] Gem Setter: Juan Perera MD Abs.Neutrophil (Seg) 4.97 k/uL Normal 1.50-8.10 [facility] Comment on above: Performed By: #### C DP, CP #### [address] [address] Gem Setter: Juan Perera MD Basophils/100 WBC (Bld) 1 % Normal 0-2 [facility] Comment on above: Performed By: #### C DP, CP #### [place] [address] Gem Setter: Juan Perera MD Eosinophils (Bld) [#/Vol] 0.19 10*3/uL Normal 0.00-0.44 [facility] Comment on above: Performed By: #### C DP, CP #### [address] [address] Gem Setter: Juan Perera MD Eosinophils/100 WBC (Bld) 2 % Normal 1-4 [facility] Comment on above: Performed By: #### C DP, CP #### [address] [address] Gem Setter: Juan Perera MD Erythrocyte distribution width (RBC) [Ratio] 15.5 % High 11.8-14.4 [facility] Comment on above: Performed By: #### C DP, CP #### [address] [address] Gem Setter: Juan Perera MD Hematocrit (Bld) [Volume fraction] 37.6 % Normal 36.3-47.1 [facility] Comment on above: Performed By: #### C DP, CP #### [address] [address] Gem Setter: Juan Perera MD Hemoglobin (Bld) [Mass/Vol] 11.4 g/dL Low 11.9-15.1 [facility] Comment on above: Performed By: #### C DP, CP #### [address] [address] Gem Setter: Juan Perera MD Immature granulocytes (Bld) [#/Vol] 0 % Normal 0 [facility] Comment on above: Performed By: #### C DP, CP #### [address] [address] Gem Setter: Juan Perera MD Lymphocytes (Bld) [#/Vol] 1.70 10*3/uL Normal 1.10-3.70 [facility] Comment on above: Performed By: #### C DP, CP #### [address] [address] Gem Setter: Juan Perera MD Lymphocytes/100 WBC (Bld) 22 % Low 24-43 [facility] Comment on above: Performed By: #### C DP, CP #### [address] [address] Gem Setter: Juan Perera MD MCH (RBC) [Entitic mass] 27.8 pg Normal 25.2-33.5 [facility] Comment on above: Performed By: #### C DP, CP #### [address] [address] Gem Setter: Juan Perera MD MCHC (RBC) [Mass/Vol] 30.3 g/dL Normal 28.4-34.8 [facility] Comment on above: Performed By: #### C DP, CP #### [address] [address] Gem Setter: Juan Perera MD MCV (RBC) [Entitic vol] 91.7 fL Normal 82.6-102.9 [facility] Comment on above: Performed By: #### C DP, CP #### [address] [address] Gem Setter: Juan Perera MD Monocytes (Bld) [#/Vol] 0.92 10*3/uL Normal 0.10-1.20 [facility] Comment on above: Performed By: #### C DP, CP #### [address] [address] Gem Setter: Juan Perera MD Monocytes/100 WBC (Bld) 12 % Normal 3-12 [facility] Comment on above: Performed By: #### C DP, CP #### [address] [address] Gem Setter: Juan Perera MD Neutrophil (Seg) 63 % Normal 36-65 [facility] Comment on above: Performed By: #### C DP, CP #### [address] [address] Gem Setter: Juan Perera MD NRBC Automated 0.0 per 100 WBC Normal 0.0 [facility] Comment on above: Performed By: #### C DP, CP #### [address] [address] Gem Setter: Juan Perera MD Platelet mean volume (Bld) [Entitic vol] 9.4 fL Normal 8.1-13.5 [facility] Comment on above: Performed By: #### C DP, CP #### [address] [address] Gem Setter: Juan Perera MD Platelets (Bld) [#/Vol] 199 10*3/uL Normal 138-453 [facility] Comment on above: Performed By: #### C DP, CP #### [address] [address] Gem Setter: Juan Perera MD RBC (Bld) [#/Vol] 4.10 10*6/uL Normal 3.95-5.11 [facility] Comment on above: Performed By: #### C DP, CP #### [address] [address] Gem Setter: Juan Perera MD RBC morphology finding Nom (Bld) ANISOCYTOSIS PRESENT Normal [facility] Comment on above: Performed By: #### C DP, CP #### [address] [address] Gem Setter: Juan Perera MD WBC (Bld) [#/Vol] 7.8 10*3/uL Normal 3.5-11.3 [facility] Comment on above: Performed By: #### C DP, CP #### [address] [address] Gem Setter: Juan Perera MD Auto Diff Performed NOT REPORTED Normal [facility] Comment on above: Performed By: #### C DP, CP #### [address] [address] Gem Setter: Juan Perera MD Platelets (Bld) [#/Vol] NOT REPORTED Normal [facility] Comment on above: Performed By: #### C DP, CP #### [address] [place] [address] Gem Setter: Juan Perera MD WBC Morphology NOT REPORTED Normal [facility] Comment on above: Performed By: #### C DP, CP #### [address] [address] Gem Setter: Juan Perera MD Comp Metabolic Profon 2018 (cont.) Normal [facility] Comment on above: Result Comment: Aver age GFR for 70 or more years old: 75 mL/min/1.73sq m Chronic Kidney Disease: <60 mL/min/1.73sq m Kidney failure: <15 mL/min/1.73sq m eGFR calculated using average adult body mass. Additional eGFR calculator available at: http://www.PlasmaSi/multiple_crcl_2012.htm Performed By: #### C DP, CP #### [address] [address] Gem Setter: Juan Perera MD Albumin [Mass/Vol] 2.7 g/dL Low 3.5-5.2 [facility] Comment on above: Performed By: #### C DP, CP #### [address] [address] Gem Setter: Juan Perera MD Albumin/Globulin [Mass ratio] 0.8 {ratio} Low 1.0-2.5 [facility] Comment on above: Performed By: #### C DP, CP #### [facility] [address] [place] [address] Gem Setter: Juan Perera MD Alkaline Phos 65 U/L Normal 35-104 [facility] Comment on above: Performed By: #### C DP, CP #### [facility] [address] [place] [address] Gem Setter: Juan Perera MD ALT [Catalytic activity/Vol] 8 U/L Normal 5-33 [facility] Comment on above: Performed By: #### C DP, CP #### [address] [address] Gem Setter: Juan Perera MD Anion gap [Moles/Vol] 12 mmol/L Normal 9-17 [facility] Comment on above: Performed By: #### C DP, CP #### [address] [address] Gem Setter: Juan Perera MD AST [Catalytic activity/Vol] 13 U/L Normal <32 [facility] Comment on above: Performed By: #### C DP, CP #### [address] [address] Gem Setter: Juan Perera MD Bilirubin Ql (U) 0.41 mg/dL Normal 0.3-1.2 [facility] Comment on above: Performed By: #### C DP, CP #### [address] [address] Gem Setter: Juan Perera MD Calcium [Mass/Vol] 8.3 mg/dL Low 8.6-10.4 [facility] Comment on above: Performed By: #### C DP, CP #### [address] [address] Gem Setter: Juan Perera MD Chloride [Moles/Vol] 108 mmol/L High 98-107 [facility] Comment on above: Performed By: #### C DP, CP #### [address] [address] Gem Setter: Juan Perera MD CO2 [Moles/Vol] 22 mmol/L Normal 20-31 [facility] Comment on above: Performed By: #### C DP, CP #### [address] [address] Gem Setter: Juan Perera MD Creatinine [Mass/Vol] 0.72 mg/dL Normal 0.50-0.90 [facility] Comment on above: Performed By: #### C DP, CP #### [facility] [address] [place] [address] Gem Setter: Juan Perera MD GFR, Amer >60 Normal >60 [facility] Comment on above: Performed By: #### C DP, CP #### [facility] [address] [place] [address] Gem Setter: Juan Perera MD GFR,non Amer >60 Normal >60 [facility] Comment on above: Performed By: #### C DP, CP #### [address] [address] Gem Setter: Juan Perera MD Glucose [Mass/Vol] 78 mg/dL Normal 70-99 [facility] Comment on above: Performed By: #### C DP, CP #### [address] [address] Gem Setter: Juan Perera MD Potassium [Moles/Vol] 3.9 mmol/L Normal 3.7-5.3 [facility] Comment on above: Performed By: #### C DP, CP #### [address] [address] Gem Setter: Juan Perera MD Protein [Mass/Vol] 6.2 g/dL Low 6.4-8.3 [facility] Comment on above: Performed By: #### C DP, CP #### [facility] [address] [place] [address] Gem Setter: Juan Perera MD Sodium [Moles/Vol] 142 mmol/L Normal 135-144 [facility] Comment on above: Performed By: #### C DP, CP #### [facility] [address] [place] [address] Gem Setter: Juan Perera MD Urea nitrogen [Mass/Vol] 11 mg/dL Normal 8- [facility] Comment on above: Performed By: #### C DP, CP #### [facility] [address] [place] [address] Gem Setter: Juan Perera MD BUN/CRE Ratio NOT REPORTED Normal 07-17 [facility] Comment on above: Performed By: #### C DP, CP #### [facility] [address] [place] [address] Gem Setter: Juan Perera MD Staging: NOT REPORTED Normal [facility] Comment on above: Performed By: #### C DP, CP #### [facility] [address] [place], [place] [id number] Gem Setter: Juan Perera MD Comprehensive Metabolic [facility] 08-03-2019 Albumin [Mass/Vol] 2.7 g/dL Low 3.5 - 5.2 g/dL [place] Albumin/Globulin [Mass ratio] 0.8 {ratio} Low [place] ALP [Catalytic activity/Vol] 65 U/L 35 - 104 U/L [place] ALT [Catalytic activity/Vol] 8 U/L 5 - 33 U/L [place] Anion gap [Moles/Vol] 12 mmol/L 9 - 17 mmol/L [place] AST [Catalytic activity/Vol] 13 U/L <32 [place] Bilirubin Ql (U) 0.41 mg/dL 0.3 - 1.2 mg/dL [place] Bun/Cre Ratio NOT REPORTED [place] Calcium [Mass/Vol] 8.3 mg/dL Low 8.6 - 10. 4 mg/dL [place] Chloride [Moles/Vol] 108 mmol/L High 98 - 10 7 mmol/L [place] CO2 [Moles/Vol] 22 mmol/L 20 - 31 mmol/L [place] Creatinine [Mass/Vol] 0.72 mg/dL 0.5 - 0.9 mg/dL [place] GFR >60 >60 mL/min [place] GFR Non- >60 >60 mL/min [place] GFR/1.73 sq M predicted among non-blacks MDRD (S/P/Bld) [Vol rate/Area] NOT REPORTED [place] GFR/1.73 sq M predicted among non-blacks MDRD (S/P/Bld) [Vol rate/Area] [place] Comment on above: Average GFR for 70 o r more years old: 75 mL/min/1.73sq m Chronic Kidney Disease: <60 mL/min/1.73sq m Kidney failure: <15 mL/min/1.73sq m eGFR calculated using average adult body mass. Additional eGFR calculator available at: http://www.PlasmaSi/multiple_crcl_2012.htm Glucose [Mass/Vol] 78 mg/dL 70 - 99 mg/dL [place] Interpretation and review of laboratory results Abnormal [place] Potassium [Moles/Vol] 3.9 mmol/L 3.7 - 5.3 mmol/L [place] Protein [Mass/Vol] 6.2 g/dL Low 6.4 - 8.3 g/dL [place] Sodium [Moles/Vol] 142 mmol/L 135 - 144 mmol/L [place] Urea nitrogen [Mass/Vol] 11 mg/dL 8 - 23 mg/dL [place] XR ABDOMEN (KUB) (SINGLE AP VIEW)on [...] Martin Hope MD 08/03/19 Final result Normal [facility] Nonspecific bowel ga s pattern. [place] Robert, M[facility] Incoming R adiant Results From [facility] - 08/03/2019 9:28 AM EDT EXAMINATION: ONE SUPINE XRAY VIEW(S) OF THE ABDOMEN 08/03/2019 9:06 am COMPARISON: 08/02/2019 HISTORY: ORDERING SYSTEM PROVIDED HISTORY: SBO TECHNOLOGIST PROVIDED HISTORY: SBO Reason for Exam: supine FINDINGS: Nonspecific bowel gas pattern. No pathologic bowel dilatation. Gas throughout the colon. Rectal gas. Enteric tube within the stomach. No organomegaly. No suspicious calcifications. IMPRESSION: Nonspecific bowel gas pattern. [place] EXAMINATION: ONE SUP INE XRAY VIEW(S) OF THE ABDOMEN 08/03/2019 9:06 am COMPARISON: 08/02/2019 HISTORY: ORDERING SYSTEM PROVIDED HISTORY: SBO TECHNOLOGIST PROVIDED HISTORY: SBO Reason for Exam: supine FINDINGS: Nonspecific bowel gas pattern. No pathologic bowel dilatation. Gas throughout the colon. Rectal gas. Enteric tube within the stomach. No organomegaly. No suspicious calcifications. [place] CBC Auto Differentialon 10-0 Basophils (Bld) [#/Vol] 0.03 10*3/uL [place] Basophils/100 WBC (Bld) 0 % 0 - 2 % [place] Differential Type NOT REPORTED [place] Eosinophils (Bld) [#/Vol] 0.17 10*3/uL [place] Eosinophils/100 WBC (Bld) 2 % 1 - 4 % [place] Erythrocyte distribution width (RBC) [Ratio] 15.6 % High 11.8 - 14.4 % [place] Hematocrit (Bld) [Volume fraction] 36.3 % 36.3 - 47.1 % [place] Hemoglobin (Bld) [Mass/Vol] 11.7 g/dL Low 11.9 - 15.1 g/dL [place] Immature granulocytes (Bld) [#/Vol] 0 % 0 [place] Immature granulocytes (Bld) [#/Vol] 0.03 10*3/uL [place] Interpretation and review of laboratory results Abnormal [place] Lymphocytes (Bld) [#/Vol] 1.85 10*3/uL [place] Lymphocytes/100 WBC (Bld) 20 % Low 24 - 43 % [place] MCH (RBC) [Entitic mass] 27.9 pg 25.2 - 33.5 pg [place] MCHC (RBC) [Mass/Vol] 32.2 g/dL 28.4 - 34.8 g/dL [place] MCV (RBC) [Entitic vol] 86.6 fL 82.6 - 102.9 fL [place] Monocytes (Bld) [#/Vol] 1.08 10*3/uL [place] Monocytes/100 WBC (Bld) 12 % 3 - 12 % [place] Platelet mean volume (Bld) [Entitic vol] 9.3 fL 8.1 - 13.5 fL [place] Platelets (Bld) [#/Vol] 215 10*3/uL [place] Platelets (Bld) [#/Vol] NOT REPORTED [place] RBC (Bld) [#/Vol] 4.19 10*6/uL 3.95 - 5.11 m/uL [place] RBC morphology finding Nom (Bld) ANISOCYTOSIS PRESENT [place] Segmented neutrophils/100 WBC (Bld) 66 % High 36 - 65 % [place] Segs Absolute 6.12 [place] WBC (Bld) [#/Vol] 9.3 10*3/uL [place] WBC (Bld) [#/Vol] 0.0 10*3/uL 0.0 per 100 WBC [place] WBC Morphology NOT REPORTED [place] CBC with Diffon 08-02-2019 Abs. Basophil 0.03 k/uL Normal 0.00-0.20 [facility] Comment on above: Performed By: #### L ACWB, CDP, REJEC #### [address] [address] Gem Setter: Juan Perera MD Abs.Imm.Granulocyte 0.03 k/uL Normal 0.00-0.30 [facility] Comment on above: Performed By: #### L ACWB CDP, REJEC #### [address] [address] Gem Setter: Juan Perera MD Abs.Neutrophil (Seg) 6.12 k/uL Normal 1.50-8.10 [facility] Comment on above: Performed By: #### L ACABDIRAHMAN CDP, REJEC #### [address] [address] Gem Setter: Juan Perera MD Basophils/100 WBC (Bld) 0 % Normal 0-2 [facility] Comment on above: Performed By: #### L ACWB CDP, REJEC #### [address] [address] Gem Setter: Juan Perera MD Eosinophils (Bld) [#/Vol] 0.17 10*3/uL Normal 0.00-0.44 [facility] Comment on above: Performed By: #### L ACWSandi CDP, REJEC #### [address] [address] Gem Setter: Juan Perera MD Eosinophils/100 WBC (Bld) 2 % Normal 1-4 [facility] Comment on above: Performed By: #### L ACWSandi CDP, REJEC #### [facility] [address] [place] [address] Gem Setter: Juan Perera MD Immature granulocytes (Bld) [#/Vol] 0 % Normal 0 [facility] Comment on above: Performed By: #### L ACWB, CDP, REJEC #### [facility] [address] [place] [address] Gem Setter: Juan Perera MD Lymphocytes (Bld) [#/Vol] 1.85 10*3/uL Normal 1.10-3.70 [facility] Comment on above: Performed By: #### L ACWB, CDP, REJEC #### [address] [address] Gem Setter: Juan Perera MD Lymphocytes/100 WBC (Bld) 20 % Low 24-43 [facility] Comment on above: Performed By: #### L ACWB, CDP, REJEC #### [address] [address] Gem Setter: Juan Perera MD Monocytes (Bld) [#/Vol] 1.08 10*3/uL Normal 0.10-1.20 [facility] Comment on above: Performed By: #### L ACWB, CDP, REJEC #### [address] [address] Gem Setter: Juan Perera MD Monocytes/100 WBC (Bld) 12 % Normal 3-12 [facility] Comment on above: Performed By: #### L ACWB, CDP, REJEC #### [address] [address] Gem Setter: Juan Perera MD Neutrophil (Seg) 66 % High 36-65 [facility] Comment on above: Performed By: #### L ACWB, CDP, REJEC #### [address] [address] Gem Setter: Juan Perera MD RBC morphology finding Nom (Bld) ANISOCYTOSIS PRESENT Normal [facility] Comment on above: Performed By: #### L ACWB, CDP, REJEC #### [facility] [address] [place] [address] Gem Setter: Juan Perera MD Erythrocyte distribution width (RBC) [Ratio] 15.6 % High 11.8-14.4 [facility] Comment on above: Performed By: #### L ARAMIS HO, REJEC #### [facility] [address] [place] [address] Gem Setter: Juan Perera MD Hematocrit (Bld) [Volume fraction] 36.3 % Normal 36.3-47.1 [facility] Comment on above: Performed By: #### L ARAMIS HO, REJEC #### [facility] [address] [place] [address] Gem Setter: Juan Perera MD Hemoglobin (Bld) [Mass/Vol] 11.7 g/dL Low 11.9-15.1 [facility] Comment on above: Performed By: #### ARAMIS SORIANO, REJEC #### [facility] [address] [place] [address] Gem Setter: Juan Perera MD MCH (RBC) [Entitic mass] 27.9 pg Normal 25.2-33.5 [facility] Comment on above: Performed By: #### ARAMIS SORIANO, REJEC #### [facility] [address] [place] [address] Gem Setter: Juan Perera MD MCHC (RBC) [Mass/Vol] 32.2 g/dL Normal 28.4-34.8 [facility] Comment on above: Performed By: #### L ARAMIS HO, REJEC #### [facility] [address] [place] [address] Gem Setter: Juan Perera MD MCV (RBC) [Entitic vol] 86.6 fL Normal 82.6-102.9 [facility] Comment on above: Performed By: #### L ARAMIS HO, REJEC #### [facility] [address] [place] [address] Gem Setter: Juan Perera MD NRBC Automated 0.0 per 100 WBC Normal 0.0 [facility] Comment on above: Performed By: #### L ACWARAMIS Junior, REJEC #### [facility] [address] [place] [address] Gem Setter: Juan Perera MD Platelet mean volume (Bld) [Entitic vol] 9.3 fL Normal 8.1-13.5 [facility] Comment on above: Performed By: #### L ARAMIS HO, REJEC #### [facility] [address] [place] [address] Gem Setter: Juan Perera MD Platelets (Bld) [#/Vol] 215 10*3/uL Normal 138-453 [facility] Comment on above: Performed By: #### L ARAMIS HO, REJEC #### [facility] [address] [place] [address] Gem Setter: Juan Perera MD RBC (Bld) [#/Vol] 4.19 10*6/uL Normal 3.95-5.11 [facility] Comment on above: Performed By: #### L ARAMIS HO, REJEC #### [facility] [address] [place] [address] Gem Setter: Juan Perera MD WBC (Bld) [#/Vol] 9.3 10*3/uL Normal 3.5-11.3 [facility] Comment on above: Performed By: #### L ACWARAMIS Junior, REJEC #### [facility] [address] [place] [address] Gem Setter: Juan Perera MD Auto Diff Performed NOT REPORTED Normal [facility] Comment on above: Performed By: #### L ACARAMIS GARY, REJEC #### [employer] [facility] [place] [address] Gem Setter: Juan Perera MD Platelets (Bld) [#/Vol] NOT REPORTED Normal [facility] Comment on above: Performed By: #### L ACWBARAMIS, REJEC #### [facility] [address] [place] [address] Gem Setter: Juan Perera MD WBC Morphology NOT REPORTED Normal [facility] Comment on above: Performed By: #### L ACWARAMIS Junior, REJEC #### [address] [address] Gem Setter: Juan Perera MD Comp Metabolic Profon 2018 (cont.) Normal [facility] Comment on above: Result Comment: Aver age GFR for 70 or more years old: 75 mL/min/1.73sq m Chronic Kidney Disease: <60 mL/min/1.73sq m Kidney failure: <15 mL/min/1.73sq m eGFR calculated using average adult body mass. Additional eGFR calculator available at: http://www.Direct[employer] Plus.Sensitive Object/multiple_crcl_2012.htm Performed By: #### C P #### [address] [address] Gem Setter: Juan Perera MD Albumin [Mass/Vol] 3.1 g/dL Low 3.5-5.2 [facility] Comment on above: Performed By: #### C P #### [address] [address] Gem Setter: Juan Perera MD Albumin/Globulin [Mass ratio] 0.9 {ratio} Low 1.0-2.5 [facility] Comment on above: Performed By: #### C P #### [address] [address] Gem Setter: Juan Perera MD Alkaline Phos 68 U/L Normal 35-104 [facility] Comment on above: Performed By: #### C P #### [address] [address] Gem Setter: Juan Perera MD ALT [Catalytic activity/Vol] 8 U/L Normal 5-33 [facility] Comment on above: Performed By: #### C P #### [address] [address] Gem Setter: Juan Perera MD Anion gap [Moles/Vol] 9 mmol/L Normal 9-17 [facility] Comment on above: Performed By: #### C P #### [address] [address] Gem Setter: Juan Perera MD AST [Catalytic activity/Vol] 11 U/L Normal <32 [facility] Comment on above: Performed By: #### C P #### [address] [address] Gem Setter: Juan Perera MD Bilirubin Ql (U) 0.39 mg/dL Normal 0.3-1.2 [facility] Comment on above: Performed By: #### C P #### [address] [address] Gem Setter: Juan Perera MD Calcium [Mass/Vol] 8.6 mg/dL Normal 8.6-10.4 [facility] Comment on above: Performed By: #### C P #### [address] [address] Gem Setter: Juan Perera MD Chloride [Moles/Vol] 106 mmol/L Normal 98-107 [facility] Comment on above: Performed By: #### C P #### [address] [address] Gem Setter: Juan Perera MD CO2 [Moles/Vol] 25 mmol/L Normal 20-31 [facility] Comment on above: Performed By: #### C P #### [address] [address] Gem Setter: Juan Perera MD Creatinine [Mass/Vol] 0.68 mg/dL Normal 0.50-0.90 [facility] Comment on above: Performed By: #### C P #### [address] [address] Gem Setter: Juan Perera MD GFR, Amer >60 Normal >60 [facility] Comment on above: Performed By: #### C P #### [address] [address] Gem Setter: Juan Perera MD GFR,non Amer >60 Normal >60 [facility] Comment on above: Performed By: #### C P #### [address] [address] Gem Setter: Juan Perera MD Glucose [Mass/Vol] 108 mg/dL High 70-99 [facility] Comment on above: Performed By: #### C P #### [address] [address] Gem Setter: Juan Perera MD Potassium [Moles/Vol] 3.8 mmol/L Normal 3.7-5.3 [facility] Comment on above: Performed By: #### C P #### [address] [address] Gem Setter: Juan Perera MD Protein [Mass/Vol] 6.4 g/dL Normal 6.4-8.3 [facility] Comment on above: Performed By: #### C P #### [address] [address] Gem Setter: Juan Perera MD Sodium [Moles/Vol] 140 mmol/L Normal 135-144 [facility] Comment on above: Performed By: #### C P #### [facility] [address] [place] [address] Gem Setter: Juan Perera MD Urea nitrogen [Mass/Vol] 14 mg/dL Normal 8- [facility] Comment on above: Performed By: #### C P #### [facility] [address] [place] [address] Gem Setter: Juan Perera MD BUN/CRE Ratio NOT REPORTED Normal - [facility] Comment on above: Performed By: #### C P #### [facility] [address] [place] [address] Gem Setter: Juan Perera MD Staging: NOT REPORTED Normal [facility] Comment on above: Performed By: #### C P #### [facility] [address] [place] [address] Gem Setter: Juan Perera MD Comprehensive Metabolic [facility] 08-02-2019 Albumin [Mass/Vol] 3.1 g/dL Low 3.5 - 5.2 g/dL [place], [place] Albumin/Globulin [Mass ratio] 0.9 {ratio} Low [place] ALP [Catalytic activity/Vol] 68 U/L 35 - 104 U/L [place] ALT [Catalytic activity/Vol] 8 U/L 5 - 33 U/L [place] Anion gap [Moles/Vol] 9 mmol/L 9 - 17 mmol/L [place] AST [Catalytic activity/Vol] 11 U/L <32 [place] Bilirubin Ql (U) 0.39 mg/dL 0.3 - 1.2 mg/dL [place] Bun/Cre Ratio NOT REPORTED [place] Calcium [Mass/Vol] 8.6 mg/dL 8.6 - 10. 4 mg/dL [place] Chloride [Moles/Vol] 106 mmol/L 98 - 10 7 mmol/L [place] CO2 [Moles/Vol] 25 mmol/L 20 - 31 mmol/L [place] Creatinine [Mass/Vol] 0.68 mg/dL 0.5 - 0.9 mg/dL [place] GFR >60 >60 mL/min [place] GFR Non- >60 >60 mL/min [place] GFR/1.73 sq M predicted among non-blacks MDRD (S/P/Bld) [Vol rate/Area] [place] Comment on above: Average GFR for 70 o r more years old: 75 mL/min/1.73sq m Chronic Kidney Disease: <60 mL/min/1.73sq m Kidney failure: <15 mL/min/1.73sq m eGFR calculated using average adult body mass. Additional eGFR calculator available at: http://www.PlasmaSi/multiple_crcl_2012.htm GFR/1.73 sq M predicted among non-blacks MDRD (S/P/Bld) [Vol rate/Area] NOT REPORTED [place] Glucose [Mass/Vol] 108 mg/dL High 70 - 99 mg/dL [place] Interpretation and review of laboratory results Abnormal [place] Potassium [Moles/Vol] 3.8 mmol/L 3.7 - 5.3 mmol/L [place] Protein [Mass/Vol] 6.4 g/dL 6.4 - 8.3 g/dL [place] Sodium [Moles/Vol] 140 mmol/L 135 - 144 mmol/L [place] Urea nitrogen [Mass/Vol] 14 mg/dL 8 - 23 mg/dL [place] LACTIC ACID, WHOLE BLOODon 1 Lactic Acid, Whole Blood 1.0 mmol/L 0.7 - 2.1 mmol/L [place] Lactic Acid,Whole Blon 08-02 Lactic Acid,Whole Bl 1.0 mmol/L Normal 0.7-2.1 [facility] Comment on above: Performed By: #### L ACWB, CDP, REJEC #### [facility] [address] [place] [id number] Gem Setter: Juan Perera MD SPECIMEN REJECTIONon 019 Ordered Test CP [place] Reason for Rejection Unable to perform t esting: Specimen hemolyzed. [place] Specimen source Nom (Unsp spec) [facility] [place] - NOT REPORTED [place] Specimen Rejectionon 019 Reason for rejection Unable to perform t esting: Specimen hemolyzed. [facility] Comment on above: Performed By: #### L ACWB CDP, REJEC #### [facility] [address] [place] [address] Gem Setter: Juan Perera MD Source of sample [facility] Comment on above: Performed By: #### L ACWB, CDP, REJEC #### [facility] [address] [place] [address] Gem Setter: Juan Perera MD Test ordered CP [facility] Comment on above: Performed By: #### L ACWB CDP, REJEC #### [facility] [address] [place] [address] Gem Setter: Juan Perera MD ----- NOT REPORTED [facility] Comment on above: Performed By: #### L ACWSandi CDP, REJEC #### [facility] [address] [place] [address] Gem Setter: Juan Perera MD XR ABDOMEN FOR NG/OG/NE [...] Eduardo Horner MD 08/02/19 Final result Normal [facility] Robert, M[facility]pn Incoming R adiant Results From [employer] - 08/02/2019 4:59 AM EDT EXAMINATION: ONE [...] The tube should be advanced 4 cm. [place] EXAMINATION: ONE SUP INE XRAY VIEW(S) [...] system. Very little bowel gas is seen. [place] The tip of the enter ic tube is in the stomach though the proximal side hole is in the esophagus. The tube should be advanced 4 cm. [place] Mammogram Routine Screeni ng Bilat.on 07-02-2018 [place] Mammogram Routine Screening Bilat. MAMMOGRAM ROUTINE SCREENING [...] lymph nodes are noted bilaterally.I CAD image hot box checker was utilized for this study.IMPRESSION:1. NO [...] reports average 6 to 10%.[facility]ARIQ [place]ard #: [id number]: 07/03/2018T: 07/03/2018 Final Dictated by: Chidi Preston MD SDictated DT/TM: 07/03/18 9:47Signed (Electronic Signature): Chidi Preston MD 07/03/18 1:53 pmTechnologist: CMAAssessment: 2-Benign findingRecommendation: Normal interval follow-up [facility] Provider [place] 06-19-2018 Protein mass conc [id number] [facility] Coding Summaryon 09-03-2017 Coding Summary CODING DATE: 017 [facility] STATUS: Home PAYOR: Medicare ADMIT [...] Waller Revised Date Saved: 06/24/2017 10:08 am [facility] Vital Signs Date Time Vital Sign Value Performing Clinician Facility 10-26-2024 16:51-0500 Body height 152.4 cm [facility] 10-26-2024 16:51-0500 Body temperature 97.9 [degF] Chano Prestigoslong [facility] 10-26-2024 16:51-0500 Diastolic blood pressure 59 mm[Hg] Chano Prestigoslong [facility] 10-26-2024 16:51-0500 Heart rate 76 /min [employer] DO Work Phone: [facility] 10-26-2024 16:51-0500 Respiratory rate 18 /min [employer] [facility] 10-26-2024 16:51-0500 SaO2% (BldA) [Mass fraction] 96 % [employer] [facility] 10-26-2024 16:51-0500 Systolic blood pressure 114 mm[Hg] [employer] DO Work Phone: [facility] 10-20-2024 14:59-0500 Body mass index (BMI) [Ratio] 38.16 kg/m2 [employer] [facility] 10-20-2024 14:59-0500 Body temperature 97.59 [degF] Chano Furlong DO Work Phone: [facility] 10-20-2024 14:59-0500 Body weight 88.63 kg [employer] DO Work Phone: [facility] 10-20-2024 14:59-0500 Diastolic blood pressure 84 mm[Hg] Chano Furlong DO Work Phone: [facility] 10-20-2024 14:59-0500 Heart rate 84 /min Chano Furlong DO Work Phone: [facility] 10-20-2024 14:59-0500 Respiratory rate 20 /min Chano Furlong DO Work Phone: [facility] 10-20-2024 14:59-0500 SaO2% (BldA) [Mass fraction] 94 % Chano Furlong DO Work Phone: [facility] 10-20-2024 14:59-0500 Systolic blood pressure 132 mm[Hg] Chano Furlong DO Work Phone: [facility] 10-16-2024 15:18-0500 Body mass index (BMI) [Ratio] 38.16 kg/m2 Chano Furlong DO Work Phone: [facility] 10-16-2024 15:18-0500 Body temperature 97.39 [degF] Chano Furlong DO Work Phone: [facility] 10-16-2024 15:18-0500 Body weight 88.63 kg Chano Furlong DO Work Phone: [facility] 10-16-2024 15:18-0500 Diastolic blood pressure 83 mm[Hg] Chano Furlong DO Work Phone: [facility] 10-16-2024 15:18-0500 Heart rate 81 /min Chano Furlong DO Work Phone: [facility] 10-16-2024 15:18-0500 Respiratory rate 20 /min Chnao Furlong DO Work Phone: [facility] 10-16-2024 15:18-0500 Systolic blood pressure 156 mm[Hg] Chano Furlong DO Work Phone: [facility] 07-23-2024 13:14-0400 Body height 152.4 cm Kalyan Barboza DPM Work Phone: [facility] 07-23-2024 13:14-0400 Body mass index (BMI) [Ratio] 36.52 kg/m2 Kalyan Barboza DPM Work Phone: [facility] 07-23-2024 13:14-0400 Body weight 84.82 kg Kalyan Brown DPM Work Phone: [facility] 07-23-2024 13:14-0400 Diastolic blood pressure 82 mm[Hg] Kalyan Barboza DPM Work Phone: [facility] 07-23-2024 13:14-0400 Heart rate 78 /min Kalyan Barboza DPM Work Phone: [facility] 07-23-2024 13:14-0400 Respiratory rate 18 /min Kalyan Barboza DPM Work Phone: [facility] 07-23-2024 13:14-0400 Systolic blood pressure 130 mm[Hg] Kalyan Barboza DPM Work Phone: [facility] 07-02-2024 13:30-0400 Body height 152.4 cm Kalyan Jabari DPM Work Phone: [facility] 07-02-2024 13:30-0400 Body mass index (BMI) [Ratio] 36.52 kg/m2 Kalyan Brown DPM Work Phone: [facility] 07-02-2024 13:30-0400 Body weight 84.82 kg Kalyan Jabari DPM Work Phone: [facility] 07-02-2024 13:30-0400 Diastolic blood pressure 80 mm[Hg] Kalyan Barboza DPM Work Phone: [facility] 07-02-2024 13:30-0400 Heart rate 83 /min Kalyan Brown DPM Work Phone: [facility] 07-02-2024 13:30-0400 Systolic blood pressure 129 mm[Hg] Kalyan Brown DPM Work Phone: [facility] 06-22-2024 14:43-0400 Body height 152.4 cm Gustavo Salas DO Work Phone: [facility] 06-22-2024 14:43-0400 Body mass index (BMI) [Ratio] 36.91 kg/m2 Gustavo Salas DO Work Phone: [facility] 06-22-2024 14:43-0400 Body weight 85.73 kg Gustavo Salas DO Work Phone: [facility] 06-22-2024 14:43-0400 Diastolic blood pressure 70 mm[Hg] Gustavo Salas DO Work Phone: [facility] 06-22-2024 14:43-0400 Heart rate 97 /min Gustavo Salas DO Work Phone: [facility] 06-22-2024 14:43-0400 SaO2% (BldA) [Mass fraction] 95 % Gustavo Salas DO Work Phone: [facility] 06-22-2024 14:43-0400 Systolic blood pressure 120 mm[Hg] Gustavo Salas DO Work Phone: [facility] 03-17-2024 10:18-0400 Body height 152.4 cm Anglea Stoutrker PROSPECTING OBSERVER-HIGH PRESSURE CLEANER Work Phone: [facility] 03-17-2024 10:18-0400 Body mass index (BMI) [Ratio] 35.15 kg/m2 Angela Zirker PROSPECTING OBSERVER-HIGH PRESSURE CLEANER Work Phone: [facility] 03-17-2024 10:18-0400 Body temperature 98.2 [degF] Angela Zirker PROSPECTING OBSERVER-HIGH PRESSURE CLEANER Work Phone: [facility] 03-17-2024 10:18-0400 Body weight 81.65 kg Angela Zirker PROSPECTING OBSERVER-HIGH PRESSURE CLEANER Work Phone: [facility] Comment on above: per patient 03-17-2024 10:18-0400 Diastolic blood pressure 70 mm[Hg] Angela Belcher PROSPECTING OBSERVER-HIGH PRESSURE CLEANER [facility] 03-17-2024 10:18-0400 Heart rate 71 /min Angela Belcher PROSPECTING OBSERVER-HIGH PRESSURE CLEANER [facility] 03-17-2024 10:18-0400 Respiratory rate 16 /min Angela Belcher PROSPECTING OBSERVER-HIGH PRESSURE CLEANER [facility] 03-17-2024 10:18-0400 SaO2% (BldA) [Mass fraction] 95 % Angela Belcher PROSPECTING OBSERVER-HIGH PRESSURE CLEANER Work Phone: [facility] 03-17-2024 10:18-0400 Systolic blood pressure 100 mm[Hg] Angela Belcher PROSPECTING OBSERVER-HIGH PRESSURE CLEANER Work Phone: [facility] 02-19-2024 19:31-0400 SaO2% (BldA) [Mass fraction] 95 % APURVA SIERRA [facility] Comment on above: Performed By: #### ELEC #### [facility] ([id number]) [address] [place] [address], [address] [place] [address] 02-17-2024 16:00-0400 Inhaled oxygen flow rate 3.5 L/min DO Gustavo Salas Work Phone: [facility] 02-17-2024 16:00-0400 SaO2% (BldA) [Mass fraction] 90 % DO Gustavo Salas Work Phone: [facility] 02-17-2024 14:02-0400 Body height 152.4 cm DO Gustavo Salas Work Phone: [facility] 02-17-2024 12:32-0400 Diastolic blood pressure 53 mm[Hg] DO Gustavo Salas Work Phone: [facility] 02-17-2024 12:32-0400 Heart rate 96 /min DO Gustavo Salas Work Phone: [facility] 02-17-2024 12:32-0400 Respiratory rate 18 /min DO Gustavo Salas Work Phone: [facility] 02-17-2024 12:32-0400 Systolic blood pressure 116 mm[Hg] DO Gustavo Salas Work Phone: [facility] 02-17-2024 08:00-0400 Body temperature 97.8 [degF] DO Gustavo Salas Work Phone: [facility] 02-17-2024 05:48-0400 Body weight 86.1 kg DO Gustavo Salas Work Phone: [facility] 02-14-2024 16:43-0400 Body height 152.4 cm DO Gustavo Salas Work Phone: [facility] 02-14-2024 16:43-0400 Body temperature 98.3 [degF] DO Gustavo Salas Work Phone: [facility] 02-14-2024 16:43-0400 Body weight 84.9 kg DO Gustavo Salas Work Phone: [facility] 02-14-2024 16:43-0400 Diastolic blood pressure 69 mm[Hg] DO Gustavo Salas Work Phone: [facility] 02-14-2024 16:43-0400 Heart rate 105 /min DO Gustavo Salas Work Phone: [facility] 02-14-2024 16:43-0400 Inhaled oxygen flow rate 4 L/min DO Gustavo Salas Work Phone: [facility] 02-14-2024 16:43-0400 Respiratory rate 20 /min DO Gustavo Salas Work Phone: [facility] 02-14-2024 16:43-0400 SaO2% (BldA) [Mass fraction] 92 % DO Gustavo Salas Work Phone: [facility] 02-14-2024 16:43-0400 Systolic blood pressure 119 mm[Hg] DO Gustavo Salas Work Phone: [facility] 02-10-2024 12:36-0400 Body height 152.4 cm Jenna Engle MD Work Phone: [facility] 02-10-2024 12:36-0400 Body mass index (BMI) [Ratio] 35.15 kg/m2 Jenna Engle MD Work Phone: [facility] 02-10-2024 12:36-0400 Body weight 81.65 kg Jenna Engle MD Work Phone: [facility] 02-10-2024 12:36-0400 Diastolic blood pressure 70 mm[Hg] Jenna Engle MD Work Phone: [facility] 02-10-2024 12:36-0400 Heart rate 96 /min Jenna Engle MD Work Phone: [facility] 02-10-2024 12:36-0400 Systolic blood pressure 120 mm[Hg] Jenna Engle MD Work Phone: [facility] 01-30-2024 13:31-0400 Blood Pressure Location Renae Ponce [facility] 01-30-2024 13:31-0400 Body temperature 98.24 [degF] Renae Orzech [facility] 01-30-2024 13:31-0400 Diastolic blood pressure 82 mm[Hg] Renae Orzech [facility] 01-30-2024 13:31-0400 Heart rate 84 /min Renae Orjennie [facility] 01-30-2024 13:31-0400 Systolic blood pressure 118 mm[Hg] Renae Kimjennie [facility] 01-27-2024 13:42-0400 Body height 162.[address] 01-27-2024 13:42-0400 Body mass index (BMI) [Ratio] 32.96 kg/m2 [address] 01-27-2024 13:42-0400 Body weight 87.[address] 01-27-2024 13:42-0400 Diastolic blood pressure 78 mm[Hg] [address] 01-27-2024 13:42-0400 Systolic blood pressure 126 mm[Hg] [address] 01-06-2024 11:39-0400 Diastolic blood pressure 72 mm[Hg] Jenna Engle MD Work Phone: [facility] 01-06-2024 11:39-0400 Systolic blood pressure 128 mm[Hg] Jenna Engle MD Work Phone: [facility] 01-06-2024 11:38-0400 Body height 162.6 cm Jenna Engle MD Work Phone: [facility] 01-06-2024 11:38-0400 Body mass index (BMI) [Ratio] 32.96 kg/m2 Jenna Engle MD Work Phone: [facility] 01-06-2024 11:38-0400 Body weight 87.09 kg Jenna Engle MD Work Phone: [facility] 01-06-2024 11:38-0400 Heart rate 62 /min Jenna Engle MD Work Phone: [facility] 12-09-2023 11:08-0500 Body mass index (BMI) [Ratio] 34.18 kg/m2 Gustavo Salas DO Work Phone: [facility] 12-09-2023 11:08-0500 Body temperature 97.5 [degF] Gustavo Salas DO Work Phone: [facility] 12-09-2023 11:08-0500 Body weight 79.38 kg Gustavo Salas DO Work Phone: [facility] 12-09-2023 11:08-0500 Diastolic blood pressure 72 mm[Hg] Gustavo Salas DO Work Phone: [facility] 12-09-2023 11:08-0500 Heart rate 106 /min Gustavo Salas DO Work Phone: [facility] 12-09-2023 11:08-0500 SaO2% (BldA) [Mass fraction] 96 % Gustavo Salas DO Work Phone: [facility] 12-09-2023 11:08-0500 Systolic blood pressure 122 mm[Hg] Gustavo Salas DO Work Phone: [facility] 08-20-2023 16:32-0400 Heart rate 95 /min DO Gustavo Salas Work Phone: [facility] 08-20-2023 16:32-0400 Respiratory rate 20 /min DO Gustavo Salas Work Phone: [facility] 08-20-2023 12:00-0400 Body temperature 98.1 [degF] DO Gustavo Salas Work Phone: [facility] 08-20-2023 12:00-0400 Diastolic blood pressure 90 mm[Hg] DO Gustavo Salas Work Phone: [facility] 08-20-2023 12:00-0400 SaO2% (BldA) [Mass fraction] 95 % DO Gustavo Salas Work Phone: [facility] 08-20-2023 12:00-0400 Systolic blood pressure 125 mm[Hg] DO Gustavo Salas Work Phone: [facility] 08-20-2023 04:47-0400 Body weight 82.7 kg DO Gustavo Maritza Work Phone: [facility] 08-19-2023 13:57-0400 Body height 152.4 cm DO Gustavo Maritza Work Phone: [facility] 08-17-2023 20:08-0400 Diastolic blood pressure 68 mm[Hg] DO Gustavo Maritza Work Phone: [facility] 08-17-2023 20:08-0400 Heart rate 80 /min DO Gustavo Maritza Work Phone: [facility] 08-17-2023 20:08-0400 Respiratory rate 20 /min DO Gustavoed Salas Work Phone: [facility] 08-17-2023 20:08-0400 SaO2% (BldA) [Mass fraction] 95 % DO Gustavo Salas Work Phone: [facility] 08-17-2023 20:08-0400 Systolic blood pressure 132 mm[Hg] DO Gustavo Maritza Work Phone: [facility] 08-17-2023 16:09-0400 Body temperature 97.4 [degF] DO Gustavo Maritza Work Phone: [facility] 08-17-2023 16:07-0400 Body height 152.4 cm DO Gustavo Maritza Work Phone: [facility] 08-17-2023 16:07-0400 Body weight 81 kg DO Gustavo Maritza Work Phone: [facility] 07-14-2023 13:39-0400 Body temperature 97.8 [degF] DO Gustavo Maritza Work Phone: [facility] 07-14-2023 13:39-0400 Diastolic blood pressure 79 mm[Hg] DO Gustavo Maritza Work Phone: [facility] 07-14-2023 13:39-0400 Heart rate 80 /min DO Gustavo Maritza Work Phone: [facility] 07-14-2023 13:39-0400 Respiratory rate 18 /min DO Gustavo Maritza Work Phone: [facility] 07-14-2023 13:39-0400 SaO2% (BldA) [Mass fraction] 94 % DO Gustavo Maritza Work Phone: [facility] 07-14-2023 13:39-0400 Systolic blood pressure 110 mm[Hg] DO Gustavo Maritza Work Phone: [facility] 07-14-2023 06:00-0400 Body weight 90.1 kg DO Gustavo Maritza Work Phone: [facility] 07-11-2023 15:28-0400 Body height 152.4 cm DO Gustavo Maritza Work Phone: [facility] 07-10-2023 13:00-0400 Diastolic blood pressure 59 mm[Hg] DO Gustavo Maritza Work Phone: [facility] 07-10-2023 13:00-0400 Heart rate 72 /min DO Gustavo Maritza Work Phone: [facility] 07-10-2023 13:00-0400 Respiratory rate 18 /min DO Gustavo Maritza Work Phone: [facility] 07-10-2023 13:00-0400 SaO2% (BldA) [Mass fraction] 96 % DO Gustavo Maritza Work Phone: [facility] 07-10-2023 13:00-0400 Systolic blood pressure 107 mm[Hg] DO Gustavo Maritza Work Phone: [facility] 06-17-2023 15:04-0400 Body height 152.4 cm DO Gustavo Maritza Work Phone: [facility] 06-17-2023 15:04-0400 Body temperature 98.7 [degF] DO Gustavo Maritza Work Phone: [facility] 06-17-2023 15:04-0400 Body weight 80.28 kg DO Gustavo Maritza Work Phone: [facility] 06-17-2023 15:04-0400 Diastolic blood pressure 55 mm[Hg] DO Gustavo Maritza Work Phone: [facility] 06-17-2023 15:04-0400 Heart rate 76 /min DO Gustavo Salas Work Phone: [facility] 06-17-2023 15:04-0400 Respiratory rate 19 /min DO Gustavo Salas Work Phone: [facility] 06-17-2023 15:04-0400 SaO2% (BldA) [Mass fraction] 96 % DO Gustavo Salas Work Phone: [facility] 06-17-2023 15:04-0400 Systolic blood pressure 110 mm[Hg] DO Gustavo Salas Work Phone: [facility] 12-31-2022 11:45-0500 Body temperature 97.3 [degF] DO Gustavo Salas Work Phone: [facility] 12-31-2022 11:45-0500 Diastolic blood pressure 72 mm[Hg] DO Gustavo Salas Work Phone: [facility] 12-31-2022 11:45-0500 Heart rate 78 /min DO Gustavo Salas Work Phone: [facility] 12-31-2022 11:45-0500 Inhaled oxygen flow rate 2 L/min DO Gustavo Salas Work Phone: [facility] 12-31-2022 11:45-0500 Respiratory rate 18 /min DO Gustavo Salas Work Phone: [facility] 12-31-2022 11:45-0500 SaO2% (BldA) [Mass fraction] 92 % DO Gustavo Maritza Work Phone: [facility] 12-31-2022 11:45-0500 Systolic blood pressure 114 mm[Hg] DO Gustavo Maritza Work Phone: [facility] 12-31-2022 06:00-0500 Body weight 83.5 kg DO Gustavo Maritza Work Phone: [facility] 12-27-2022 10:00-0500 Body height 152.4 cm DO Gustavo Salas Work Phone: [facility] 12-26-2022 23:00-0500 Diastolic blood pressure 60 mm[Hg] DO Gustavoed Salas Work Phone: [facility] 12-26-2022 23:00-0500 Heart rate 77 /min DO Gustavo Salas Work Phone: [facility] 12-26-2022 23:00-0500 Respiratory rate 18 /min DO Gustavo Salas Work Phone: [facility] 12-26-2022 23:00-0500 SaO2% (BldA) [Mass fraction] 94 % DO Gustavo Salas Work Phone: [facility] 12-26-2022 23:00-0500 Systolic blood pressure 130 mm[Hg] DO Gustavo Maritza Work Phone: [facility] 12-26-2022 18:59-0500 Body height 152.4 cm DO Gustavo Maritza Work Phone: [facility] [facility] 12-26-2022 18:59-0500 Body temperature 98.8 [degF] DO Gustavo Maritza Work Phone: [facility] 12-26-2022 18:59-0500 Body weight 84.3 kg DO Gustavo Maritza Work Phone: [facility] 11-22-2022 11:25-0500 Body temperature 97.5 [degF] DO Gustavo Salas Work Phone: [facility] 11-22-2022 11:25-0500 Diastolic blood pressure 68 mm[Hg] DO Gustavo Maritza Work Phone: [facility] 11-22-2022 11:25-0500 Heart rate 72 /min DO Gustavo Maritza Work Phone: [facility] 11-22-2022 11:25-0500 Respiratory rate 22 /min DO Gustavo Maritza Work Phone: [facility] 11-22-2022 11:25-0500 SaO2% (BldA) [Mass fraction] 93 % DO Gustavo Salas Work Phone: [facility] 11-22-2022 11:25-0500 Systolic blood pressure 146 mm[Hg] DO Gustavo Salas Work Phone: [facility] 11-22-2022 10:26-0500 Body height 152.4 cm DO Gustavo Salas Work Phone: [facility] 11-22-2022 10:26-0500 Body weight 87.9 kg DO Gustavo Salas Work Phone: [facility] 05-31-2022 15:12-0400 Diastolic blood pressure 75 mm[Hg] DO Gustavoed Salas Work Phone: [facility] 05-31-2022 15:12-0400 Heart rate 69 /min DO Gustavo Maritza Work Phone: [facility] 05-31-2022 15:12-0400 Respiratory rate 25 /min DO Gustavo Maritza Work Phone: [facility] 05-31-2022 15:12-0400 SaO2% (BldA) [Mass fraction] 98 % DO Gustavo Maritza Work Phone: [facility] 05-31-2022 15:12-0400 Systolic blood pressure 156 mm[Hg] DO Gustavo Salas Work Phone: [facility] 05-31-2022 11:02-0400 Body height 154.94 cm DO Gustavo Salas Work Phone: [facility] 05-31-2022 11:02-0400 Body temperature 97.1 [degF] DO Gustavo Salas Work Phone: [facility] 05-31-2022 11:02-0400 Body weight 86.18 kg DO Gustavo Salas Work Phone: [facility] 08-04-2019 08:30-0400 Body Temperature 97.81 [degF] [facility] [place] [facility] 08:30-0400 BP Diastolic 69 mm[Hg] Hayden Watters [facility] 08-04-2019 08:30-0400 BP Systolic 161 mm[Hg] Hayden Watters [facility] 08-04-2019 08:30-0400 Pulse (Heart Rate) 78 /min [facility] [place] 08-04-2019 08:30-0400 Pulse Oximetry 92 % Hayden Wtaters [facility] 08-04-2019 08:30-0400 Respiratory Rate 18 /min [facility] [place] 08-02-2019 01:00-0400 BMI (Body Mass Index) 34.44 kg/m2 [facility] [place] 08-02-2019 01:00-0400 Body weight 82.67 kg Hayden Watters [facility] 08-02-2019 01:00-0400 Height 154.9 cm [facility] [place] Encounters Encounter Date Encounter Type Care Provider Facility Start: 12-07-2024 End: 12-10-2024 Clinisync Result Encounter Generic External Data Provider [facility] External Department Unsolicited Start: 12-07-2024 End: 12-10-2024 Clinisync Result Encounter Generic External Data Provider [facility] External Department Unsolicited Start: 10-26-2024 End: 10-26-2024 Continuing Care Chano Presley DO Work Phone: [facility] Comment on above: Pneumonia of right l ower lobe due to infectious organism (Primary Dx); Chronic obstructive pulmonary disease with acute exacerbation (CMS-HCC); Sleep apnea, unspecified type; Moderate episode of recurrent major depressive disorder (CMS-HCC); Atherosclerosis of [place] coronary artery of [place] heart without angina pectoris; Closed wedge compression fracture of T6 vertebra with routine healing, subsequent encounter Start: 10-22-2024 End: 10-22-2024 Orders Only Chano Presley DO Work Phone[facility] Start: 10-20-2024 End: 10-22-2024 Continuing Care Chano Presley DO Work Phone: [facility] Comment on above: Chronic obstructive pulmonary disease with acute exacerbation (CMS-HCC) (Primary Dx); Pneumonia of right lower lobe due to infectious organism; Gastroesophageal reflux disease without esophagitis; Closed wedge compression fracture of T6 vertebra with routine healing, subsequent encounter; Moderate episode of recurrent major depressive disorder (CMS-HCC); Encephalopathy, unspecified type Start: 10-16-2024 End: 10-16-2024 ambulatory Chano Presley DO Work Phone: [facility] Comment on above: Chronic obstructive pulmonary disease with acute exacerbation (CMS-HCC) (Primary Dx); Sleep apnea, unspecified type; Anxiety; Insomnia, unspecified type; Closed fracture of sixth thoracic vertebra with routine healing, unspecified fracture morphology, subsequent encounter; Atherosclerosis of [place] coronary artery of [place] heart without angina pectoris Start: 10-12-2024 End: [...] procedure Gustavo Salas DO Work Phone: [facility] Comment on above: Centrilobular emphys josue (CMS/HCC) [...] End: 07-23-2024 Office outpatient visit 15 minutes Kalyna Barboza DPM Work Phone: [facility] Comment on above: Other specified diso rders of synovium, left ankle and foot (Primary Dx); Right Achilles tendinitis; Venous insufficiency Start: 07-02-2024 End: 07-02-2024 Bamboo flowsjo ann Barboza DPM Work Phone: [facility] Start: 07-02-2024 End: 07-02-2024 Bamboo flowsheet Kalyan Barboza DPM Work Phone: [facility] Start: 07-02-2024 End: 07-02-2024 ambulatory KALYAN BARBOZA Not Available Start: 07-02-2024 End: 07-02-2024 Office outpatient visit 15 minutes Kalyan Barboza DPM Work Phone: [facility] Comment on above: Heel spur, right (Pr imary Dx); Venous insufficiency; Onychomycosis; Toe pain, left; Toe pain, right; Right Achilles tendinitis Start: 06-22-2024 End: 06-22-2024 ambulatory GUSTAVO SALAS Not Available Start: 06-22-2024 End: 06-22-2024 Office outpatient visit 40 minutes Gustavo Salas DO Work Phone: [facility] Comment on above: Stage 3a chronic kid lamont disease (HCC) (CMS/HCC) (Primary Dx); Interstitial pulmonary disease, unspecified (CMS/HCC); Primary osteoarthritis involving multiple joints; Morbid (severe) obesity due to excess calories (E66.01); Atherosclerosis of [place] coronary artery of [place] heart without angina pectoris (CMS/HCC); Chronic heart failure with preserved ejection fraction (CMS/HCC); Centrilobular emphysema (CMS/HCC); Neural foraminal stenosis of lumbosacral spine; Failed back surgical syndrome; Mixed hyperlipidemia (CMS/HCC); Acute cystitis without hematuria; Anemia due to stage 3a chronic kidney disease (HCC) (CMS/HCC) Start: 06-22-2024 End: 06-22-2024 Ousmane Gutierrez NP Work Phone: [facility] Comment on above: Failed back surgical syndrome; Neural foraminal stenosis of lumbosacral spine Start: 05-22-2024 End: 05-22-2024 ambulatory GUSTAVO SALAS Not Available Start: 05-16-2024 End: 05-16-2024 ambulatory KALYAN BARBOZA Not Available Start: 05-06-2024 End: 05-06-2024 ambulatory GUSTAVO SALAS Not Available Start: 05-06-2024 End: 05-06-2024 ambulatory GUSTAVO SALAS Not Available Start: 05-01-2024 End: 05-01-2024 Orders Only Vibha Rubio LPN [facility] Comment on above: Chronic obstructive pulmonary disease, unspecified COPD type ([facility]-HCC) (Primary Dx) Start: 04-27-2024 End: 04-27-2024 ambulatory [facility] Start: 04-13-2024 End: 04-13-2024 ambulatory [facility] Start: 04-08-2024 End: 04-08-2024 ambulatory [facility] Start: 04-02-2024 End: 04-02-2024 [facility] Start: 03-30-2024 End: 03-30-2024 ambulatory [facility] Start: 03-18-2024 End: 03-18-2024 [facility] Start: 03-17-2024 End: 03-17-2024 Office outpatient visit 25 minutes Angela Belcher PROSPECTING OBSERVER-HIGH PRESSURE CLEANER Work Phone: [facility] Comment on above: Hospital discharge f ollow-up (Primary Dx); Chronic respiratory failure with hypoxia, on home O2 therapy [place] Former cigarette smoker; Abnormal CT of the chest; Longstanding persistent atrial fibrillation ([facility]) Start: 03-17-2024 End: 03-17-2024 ambulatory [facility] Start: 03-11-2024 End: 03-11-2024 ambulatory [facility] Start: 03-05-2024 End: 03-05-2024 ambulatory TODD POSEY [facility] Start: 03-04-2024 End: 03-04-2024 ambulatory GUSTAVO SALAS [facility] Start: 03-03-2024 End: 03-03-2024 ambulatory TODD POSEY [facility] Start: 03-02-2024 End: 03-02-2024 ambulatory TODD POSEY [facility] Start: 02-27-2024 End: 02-27-2024 ambulatory TODD POSEY [facility] Start: 02-19-2024 End: 02-26-2024 Emergency department patient visit OVIDIO J [facility] Start: 02-19-2024 End: 02-25-2024 Evaluation and management of inpatient GUSTAVO SALAS [facility] Start: 02-19-2024 End: 02-26-2024 Emergency department patient visit OVIDIO JANE [facility] Start: 02-14-2024 Non-patient / Non-visit DO David Baezman Work Phone: [facility] Work Phone: Start: 02-14-2024 End: 02-17-2024 Evaluation and management of inpatient DO Gustavo Salas Work Phone: [facility] [place] [facility] Work Phone: Start: 02-10-2024 End: 02-10-2024 ambulatory [facility] Start: 02-10-2024 End: 02-10-2024 Office outpatient visit 25 minutes Jenna Engle MD Work Phone: [facility] Comment on above: Shortness of breath; Coronary artery disease involving [place] coronary artery of [place] heart without angina pectoris; History of PTCA; Essential hypertension; Hyperlipidemia, mixed; Obstructive sleep apnea syndrome; BMI 35.0-35.9,adult; Current smoker; Chronic hypoxemic respiratory failure (Multi); Encounter to discuss test results Start: 02-05-2024 End: 02-05-2024 ambulatory GUSTAVOED SALAS Not Available Start: 01-30-2024 End: 01-31-2024 ambulatory Renae X Orzech [facility] Start: 01-30-2024 End: 01-31-2024 ambulatory Renae X Orzech Facility: [place] Start: 01-30-2024 End: 01-30-2024 Lab Drop off Renae X Orzech [facility] Start: 01-30-2024 End: 01-30-2024 Patient encounter procedure Renae Ponce [facility] [place] Start: 01-27-2024 End: 01-27-2024 ambulatory [facility] Start: 01-27-2024 End: 01-27-2024 Subsequent hospital visit by physician Magnolia Garzon Echo/Vasc Room 2 [facility] Comment on above: Shortness of breath Start: 01-13-2024 ambulatory Renae Sesaybeth Facility: [facility] Start: 01-10-2024 End: 01-10-2024 ambulatory GUSTAVO SALAS Not Available Start: 01-06-2024 End: 01-06-2024 Patient encounter procedure DO Gustavo Salas Work Phone: [facility] Work Phone: Start: 01-06-2024 End: 01-06-2024 ambulatory [facility] Start: 01-06-2024 End: 01-06-2024 Office consultation new/estab patient 80 min Jenna Engle MD Work Phone: [facility] Comment on above: Shortness of breath; Coronary artery disease involving [place] coronary artery of [place] heart without angina pectoris; Stage 3b chronic [...] minutes Gustavo Salas DO Work Phone: [facility] Comment on above: SOB (shortness of br eath) (Primary Dx); Wheezing; Urinary tract bacterial infections; Essential hypertension ([facility]/HCC); Mixed hyperlipidemia ([facility]/HCC); Stage 3a chronic kidney disease (HCC) ([facility]); Sepsis with acute renal failure without septic shock, due to unspecified organism, unspecified acute renal failure type ([facility]/HCC); Hospital discharge follow-up; Medication management; Female bladder prolapse; Pulmonary emphysema, unspecified emphysema type ([facility]/HCC) Start: 11-12-2023 Telephone encounter Nirmala baum [facility] Start: 10-31-2023 Chart abstracting Scanning Pro vider External [facility] Start: 10-30-2023 Telephone encounter Amrit carnes [facility] Comment on above: Neuro Appt Start: 10-21-2023 End: 10-24-2023 [facility] Start: 10-18-2023 End: 10-24-2023 [facility] Start: 10-17-2023 End: 10-24-2023 Evaluation and management of inpatient BING Regalado [facility] Start: 10-15-2023 End: 10-24-2023 [facility] Start: 10-14-2023 End: 10-24-2023 Evaluation and management of inpatient CIRCLE PINES [facility] Start: 10-10-2023 End: 10-24-2023 Evaluation and management of inpatient CIRCLE PINES E [facility] Start: 10-08-2023 End: 10-24-2023 Evaluation and management of inpatient NOE Herminio OSEI [facility] Start: 10-06-2023 End: 10-24-2023 Evaluation and management of inpatient SUSANA VELAZQUEZ [facility] Start: 10-06-2023 End: 10-24-2023 Evaluation and management of inpatient FRANCINE YANG [facility] Start: 10-06-2023 End: 10-24-2023 Evaluation and management of inpatient SHEILA BARRY [facility] Start: 10-05-2023 End: 10-24-2023 Evaluation and management of inpatient APURVA SIERRA [facility] Start: 10-05-2023 End: 10-23-2023 Evaluation and management of inpatient ALI TRINA [facility] Start: 08-17-2023 End: 08-20-2023 Evaluation and management of inpatient DO Gustavo Salas Work Phone: [facility] [place] [facility] Work Phone: Start: 07-10-2023 End: 07-14-2023 Evaluation and management of inpatient DO Gustavo Salas Work Phone: [facility] [place] [facility] Work Phone: Start: 06-17-2023 End: 06-17-2023 Emergency department patient visit DO Gustavo Salas Work Phone: [facility] Work Phone: Start: 04-01-2023 End: 04-26-2023 Patient encounter procedure Gustavo Salas DO Work Phone: [facility] Start: 01-22-2023 ambulatory NARCISO VALLE . Facility:H1 Start: 12-27-[address] Charlie Gao II Facility:[id number] Start: 12-26-2022 End: 12-31-2022 Evaluation and management of inpatient DO Gustavo Salas Work Phone: [facility] Work Phone: Start: 11-22-2022 End: 11-22-2022 Emergency department patient visit DO Gustavo Salas Work Phone: [facility] Work Phone: Start: 05-31-2022 End: 05-31-2022 Emergency department patient visit DO Gustavo Salas Work Phone: [facility] Start: 05-03-2022 End: 05-03-2022 ambulatory Jorge A Renetta Other [employer] Other Start: 05-03-2022 Telephone encounter Jorge A Renetta [facility] Start: 04-24-2022 End: 04-24-2022 ambulatory Jorge A Renetta Other [facility] [employer] Other Start: 04-24-2022 Telephone encounter Jorge A Renetta [facility] Start: 03-12-[address] [facility] Start: 03-08-2022 End: 03-08-2022 ambulatory Jorge A Renetta Other [facility] [employer] Other Start: 03-08-2022 Telephone encounter Jorge A Renetta [facility] Start: 01-18-2022 End: 01-18-2022 ambulatory Tanya Cesar Other [facility] [employer] Other Start: 01-18-2022 Telephone encounter Tanya Cesar [facility] Start: 10-26-2021 End: 10-26-2021 ambulatory Jorge A Renetta Other [facility] [employer] Other Start: 10-26-2021 Telephone encounter Jorge A Renetta [facility] Start: 08-02-2019 End: 08-04-2019 Evaluation and management of inpatient CRYS BARBOZA [facility] Start: 08-01-2019 End: 08-04-2019 Evaluation and management of inpatient Gwentricia Bueno Work Phone: [facility] Start: 07-03-2018 End: 07-03-2018 Patient encounter Mely Camarillo Facility:[facility] Procedures Date Procedure Procedure Detail Performing Clinician Start: 12-07-2024 Bacteria identified in Urine by Culture Generic External Data Provider Start: 10-12-2024 BLOOD CULTURE 2 Generic External [...] Positive Performed By: #### E LEC #### [facility] ([id number]) [address] [place] [address], [address] [place] [address] Start: 02-19-2024 Adult depression screening assessment Angela Belcher PROSPECTING OBSERVER-HIGH PRESSURE CLEANER Work Phone: Start: 02-16-2024 Investigation of transfusion [...] Duplex scan of lower limb veins DO Gustavoed Salas Work Phone: Start: 02-14-2024 Plain chest X-ray DO Corwin tanged Salas Work Phone: Start: 02-10-2024 FOLLOW UP IN CARDIOLOGY JENNALAUREL ENGLE Start: 01-27-2024 TRANSTHORACIC ECHO ( TTE) COMPLETE JENNARaza ENGLE Start: 01-06-2024 ECG 12-LEAD JENNA ESCOBAR Start: 01-06-2024 CBC panel - Blood by Automated count JENNALAUREL DURÁNAN Start: 01-06-2024 Natriuretic peptide B [Mass/volume] in Blood JENNA ENGLE Start: 01-06-2024 SEDIMENTATION RATE, AUTOMATED JENNA ENGLE Start: 01-06-2024 Comprehensive metabo lic 2000 panel - Serum or Plasma JENNARaza ENGLE Start: 01-06-2024 History of percutane ous [...] >=3 Positive Performed By: #### C BC, [facility], [id number], [id number] #### [facility] ([id number]) [address], [address] [place] [address] Start: 10-06-2023 Adult depression screening assessment Amrit [...] Phone: Start: 12-27-2022 Urine culture DO Jennifer aSlas Work Phone: Start: 12-27-2022 X-ray of left [...] BARBOZA Start: 08-04-2019 DIET LOW FIBER CRYS MANNY [...] Phone: Start: 08-03-2019 Comprehensive metabo lic panel Trued Al Furgani Work Phone: Start: 08-02-2019 TELEMETRY MONITORING LA NAMRATARaza BARBOZA Start: 08-02-2019 Comprehensive metabo lic panel CRYS JABARI Start: 08-02-2019 PREVIOUS SPECIMEN CRYS BARBOZA Start: 08-02-2019 NURSING COMMUNICATION L NATHAN JABARI Start: 08-02-2019 INITIATE OXYGEN THER APY PROTOCOL CRYS JABARI Start: 08-02-2019 Comprehensive metabo lic panel Verenice Chilel Work Phone: Start: 08-02-2019 Assay of lactate CRYS BARBOZA Start: 08-02-2019 Blood count complete auto&auto difrntl wbc CRYS BARBOZA Start: 08-02-2019 Drug tst prsmv instr mnt chem analyzers pr date CRYS JABARI Start: 08-02-2019 Assay of lactate Marisol Lynette Work Phone: Start: 08-02-2019 Blood count complete auto&auto difrntl wbc Mahmud Al Furgani Work Phone: Start: 08-02-2019 SPECIMEN REJECTION Mahm ud Al Furgani Work Phone: Start: 08-02-2019 Radiologic exam abdo men 1 view CRYS BARBOZA Start: 10-06-2019 TUBE INSERTION CRYS ACEVEDO Start: 08-02-2019 Radiologic exam abdo men 1 view Marisol Ojeda Work Phone: Start: 08-02-2019 IP CONSULT TO GLENN L SURGERY CRYS BARBOZA Start: 08-02-2019 FULL [...] screening for protein Diabetes: [facility] Start: 03-17-2025 Adult BMI Screening Adult BMI Screening [facility] Start: 03-17-2025 Tobacco Screening Tobacco Screening [facility] Start: 02-18-2025 Depression Screening Depression Screening [facility] Start: 01-26-2025 Echocardiography Echocardiogram [facility] Start: 11-05-2024 End: 11-05-2024 Patient encounter procedure 11/05/2024 3:30 PM EST Procedure Visit [facility] [address] [facility] [address] [place] [address] Kalyan Barboza, MELISSA [address] [facility] [address] [place] [address] [facility] Start: 10-23-2024 Adult BMI Screening Adult BMI Screening [facility] Start: 10-13-2024 End: 10-13-2024 Patient encounter procedure 10/13/2024 2:30 PM EST Office Visit [facility] [address] [place] [address] Gustavo Salas DO [address] [place] [address] [facility] Start: 10-08-2024 End: 10-08-2024 Patient encounter procedure 10/08/2024 4:10 PM EST Procedure Visit [facility] [address] [place] [address] Kalyan Barboza DPM [address] [facility] [address] [place] [address] [facility] Start: 10-07-2024 Echocardiography [facility] Start: 10-06-2024 End: 10-06-2024 Patient encounter procedure 10/06/2024 2:30 PM EST Office Visit [facility] [address] [place] [address] Gustavo Salas DO [address] [place] [address] [facility] Start: 10-06-2024 Depression Screening Depression Screening [facility] Start: 10-06-2024 Tobacco Screening Tobacco Screening [facility] Start: 09-22-2024 End: 12-23-2024 CBC panel - Blood by Automated count CBC Lab Routine Anemia due to stage 3a chronic kidney disease (HCC) ([facility]/HCC) Expected: 09/22/2024 (Approximate), Expires: 12/23/2024 [facility] Work Phone: Comment on above: Expected: 09/22/2024 (Approximate), Expi res: 12/23/2024 Start: 09-22-2024 End: 12-23-2024 Cobalamin (Vitamin B12) [Mass/volume] in Serum or Plasma Vitamin B12 Lab Routine Anemia due to stage 3a chronic kidney disease (HCC) (CMS/HCC) Expected: 09/22/2024 (Approximate), Expires: 12/23/2024 [facility] Comment on above: Expected: 09/22/2024 (Approximate), Expi res: 12/23/2024 Start: 09-22-2024 End: 12-23-2024 Comprehensive metabolic 2000 panel - Serum or Plasma Comprehensive metabolic panel Lab Routine Anemia due to stage 3a chronic kidney disease (HCC) ([facility]/HCC) Expected: 09/22/2024 (Approximate), Expires: 12/23/2024 [facility] Comment on above: Expected: 09/22/2024 (Approximate), Expi res: 12/23/2024 Start: 09-22-2024 End: 12-23-2024 Ferritin [Mass/volume] in Serum or Plasma Ferritin Lab Routine Anemia due to stage 3a chronic kidney disease (HCC) (CMS/HCC) Expected: 09/22/2024 (Approximate), Expires: 12/23/2024 [facility] Comment on above: Expected: 09/22/2024 (Approximate), Expi res: 12/23/2024 Start: 09-22-2024 End: 12-23-2024 Iron and Iron binding capacity panel - Serum or Plasma Iron and TIBC Lab Routine Anemia due to stage 3a chronic kidney disease (HCC) ([facility]/HCC) Expected: 09/22/2024 (Approximate), Expires: 12/23/2024 [facility] Comment on above: Expected: 09/22/2024 (Approximate), Expi res: 12/23/2024 Start: 09-22-2024 End: 12-23-2024 Lipid 1996 panel - Serum or Plasma Lipid panel Lab Routine Mixed hyperlipidemia ([facility]) Anemia due to stage 3a chronic kidney disease (HCC) ([facility]/HCC) Expected: 09/22/2024 (Approximate), Expires: 12/23/2024 [facility] Comment on above: Expected: 09/22/2024 (Approximate), Expi res: 12/23/2024 Start: 09-22-2024 End: 09-22-2024 Patient encounter procedure 09/22/2024 2:00 PM EST Office Visit [facility] [address] [place] [id number] Gustavo Salas DO [address] [place] [address] [facility] Start: 09-22-2024 End: 12-23-2024 Thyrotropin [Units/volume] in Serum or Plasma TSH Lab Routine Anemia due to stage 3a chronic kidney disease (HCC) ([facility]/HCC) Expected: 09/22/2024 (Approximate), Expires: 12/23/2024 [facility] Comment on above: Expected: 09/22/2024 (Approximate), Expi res: 12/23/2024 Start: 09-22-2024 End: 12-23-2024 Thyroxine (T4) free [Mass/volume] in Serum or Plasma T4, free Lab Routine Anemia due to stage 3a chronic kidney disease (HCC) ([facility]/HCC) Expected: 09/22/2024 (Approximate), Expires: 12/23/2024 [facility] Comment on above: Expected: 09/22/2024 (Approximate), Expi res: 12/23/2024 Start: 09-22-2024 End: 12-23-2024 Triiodothyronine (T3) Free [Mass/volume] in Serum or Plasma T3, free Lab Routine Anemia due to stage 3a chronic kidney disease (HCC) ([facility]/HCC) Expected: 09/22/2024 (Approximate), Expires: 12/23/2024 [facility] Comment on above: Expected: 09/22/2024 (Approximate), Expi res: 12/23/2024 Start: 09-10-2024 End: 09-10-2024 Patient encounter procedure 09/10/2024 2:00 PM EST Procedure Visit [facility] [address] [address] Kalyan Barboza DPM [address] [address] [facility] Start: 07-24-2024 End: 07-24-2024 Patient encounter procedure 07/24/2024 3:30 PM EDT Office Visit [facility] [address] [place] [address] Kalyan Barboza DPM [address] [address] [facility] Start: 07-24-2024 End: 07-24-2024 Patient encounter procedure 07/24/2024 11:40 AM EDT Procedure Visit [facility] [address] [place] [phone] Kalyan Barboza, HAMLETM [address] [address] [facility] Start: 07-23-2024 End: 07-23-2024 Clinical Support 07/23/2024 1:20 PM EDT Clinical Support [facility] [address] [facility] [address] [place] [phone] Kalyan Braboza DPM [address] [address] Other specified disorders of synovium, left ankle and foot (Primary Dx); Right Achilles tendinitis; Venous insufficiency [facility] Comment on above: Other specified disorders of synovium, l eft ankle and foot (Primary Dx); Right Achilles tendinitis; Venous insufficiency Start: 07-02-2024 End: 07-02-2024 Patient encounter procedure 07/02/2024 1:20 PM EDT Office Visit [facility] [address] [facility] [address] [place] [phone] Kalyan Barboza DPM [address] [address] [facility] Start: 06-28-2024 COVID-19 Vaccine ( season) COVID-19 Vaccine ( season) [facility] Start: 06-28-2024 Influenza vaccination [facility] Start: 05-11-2024 End: 05-11-2024 Patient encounter procedure 05/11/2024 10:30 AM EDT Office Visit [facility] [address] [address] Markos Ortega MD [address] [place] [address] [facility] Start: 04-27-2024 Screening for osteoporosis Bone Density Scan [facility] Start: 04-27-2024 End: 04-27-2024 Patient encounter procedure 04/27/2024 1:00 PM EDT Appointment [facility] [address] [place] [address] [facility] Start: 04-01-2024 Medicare Annual Wellness (AWV) Medicare Annual Wellness (AWV) [facility] Start: 02-19-2024 [facility] Start: 02-18-2024 [facility] Start: 02-17-2024 [facility] Start: 02-16-2024 Microbial culture of sputum [facility] Start: 02-14-2024 [facility] Start: 02-14-2024 Referral to Straight Ruling Machine Operator [facility] Start: 02-14-2024 [facility] Start: 02-14-2024 Hospital admission [facility] Start: 02-14-2024 Bacteria identified in Blood by Culture [facility] Start: 02-14-2024 Bacteria identified in Urine by Culture [facility] Start: 02-14-2024 Blood culture for bacteria, including anaerobic screen Blood Culture [facility] Start: 02-14-2024 Duplex scan of lower limb veins US venous duplex LE RT [facility] Start: 02-14-2024 US Lower extremity vein - right [facility] Start: 02-10-2024 End: 02-10-2024 Patient encounter procedure 02/10/2024 12:30 PM EDT Office Visit [facility] [address] [facility] [address] [place] [address] Jenan Engle MD [address] [facility] [address] [place] [address] [facility] Start: 01-27-2024 End: 01-27-2024 Patient encounter procedure 01/27/2024 1:30 PM EDT Appointment [facility] [address] [address] [facility] Start: 01-19-2024 COVID-19 Vaccine () COVID-19 Vaccine () [facility] Start: 01-10-2024 End: 01-10-2024 Patient encounter procedure 01/10/2024 2:00 PM EDT Office Visit [facility] [address] [place] [address] William Gallagher MD [address] [facility] [address] [place] [address] [facility] Start: 01-06-2024 End: 01-05-2025 CBC panel - Blood by Automated count CBC Lab Routine Shortness of breath Expected: 01/06/2024 (Approximate), Expires: 01/05/2025 [facility] Work Phone: Comment on above: Expected: 01/06/2024 (Approximate), Expi res: 01/05/2025 Start: 01-06-2024 End: 01-05-2025 Comprehensive metabolic 2000 panel - Serum or Plasma Comprehensive Metabolic Panel Lab Routine Shortness of breath Expected: 01/06/2024 (Approximate), Expires: 01/05/2025 [facility] Work Phone: Comment on above: Expected: 01/06/2024 (Approximate), Expi res: 01/05/2025 Start: 01-06-2024 End: 01-05-2025 Erythrocyte sedimentation rate Sedimentation Rate Lab Routine Shortness of breath Expected: 01/06/2024 (Approximate), Expires: 01/05/2025 [facility] Work Phone: Comment on above: Expected: 01/06/2024 (Approximate), Expi res: 01/05/2025 Start: 01-06-2024 End: 01-05-2025 Natriuretic peptide B [Mass/volume] in Blood B-Type Natriuretic Peptide Lab Routine Shortness of breath Expected: 01/06/2024 (Approximate), Expires: 01/05/2025 [facility] Work Phone: Comment on above: Expected: 01/06/2024 (Approximate), Expi res: 01/05/2025 Start: 01-06-2024 End: 01-05-2026 US Heart Transthoracic Transthoracic Echo Complete Echocardiography Routine Shortness of breath Expected: 01/06/2024 (Approximate), Expires: 01/05/2026 [facility] Service Area Work Phone: Comment on above: Expected: 01/06/2024 (Approximate), Expi res: 01/05/2026 Start: 01-06-2024 End: 01-05-2025 XR Chest 2 Views XR chest 2 views Imaging Routine Shortness of breath Expected: 01/06/2024 (Approximate), Expires: 01/05/2025 [facility] Work Phone: Comment on above: Expected: 01/06/2024 (Approximate), Expi res: 01/05/2025 Start: 12-30-2023 End: 12-30-2023 Patient encounter procedure 12/30/2023 11:15 AM EST Office Visit [facility] [address] [place] [phone] Gustavo Salas DO [address] [place] [address] [facility] Start: 12-16-2023 End: 12-16-2023 Patient encounter procedure 12/16/2023 11:30 AM EST Office Visit [facility] [address] [place] [phone] Yovani Glover PA-C [address] [place] [address] [facility] Start: 12-09-2023 End: 12-09-2024 Bacteria identified in Urine by Culture Urine culture (clean catch) Microbiology Routine Urinary tract bacterial infections Expected: 12/09/2023 (Approximate), Expires: 12/09/2024 [facility] Comment on above: Expected: 12/09/2023 (Approximate), Expi res: 12/09/2024 Start: 12-09-2023 End: 12-09-2024 CBC W Auto Differential panel - Blood CBC and differential Lab Routine Essential hypertension ([facility]/HCC) Expected: 12/09/2023 (Approximate), Expires: 12/09/2024 [facility] Work Phone: Comment on above: Expected: 12/09/2023 (Approximate), Expi res: 12/09/2024 Start: 12-09-2023 End: 12-09-2024 Comprehensive metabolic 2000 panel - Serum or Plasma Comprehensive metabolic panel Lab Routine Essential hypertension (CMS/HCC) Expected: 12/09/2023 (Approximate), Expires: 12/09/2024 [facility] Comment on above: Expected: 12/09/2023 (Approximate), Expi res: 12/09/2024 Start: 12-09-2023 End: 12-09-2024 Magnesium [Mass/volume] in Serum or Plasma Magnesium Lab Routine Stage 3a chronic kidney disease (HCC) ([facility]/HCC) Expected: 12/09/2023 (Approximate), Expires: 12/09/2024 [facility] Comment on above: Expected: 12/09/2023 (Approximate), Expi res: 12/09/2024 Start: 11-11-2023 End: 11-11-2023 Patient encounter procedure 11/11/2023 9:15 AM EST Office Visit [facility] [address] [place] [address] [address] [place] [address] Jose Martin Galicia MD [address] [place] [address], [address] [place], [place] [phone] [facility] Start: 11-05-2023 End: 11-05-2023 Patient encounter procedure 11/05/2023 12:30 PM EST Office Visit [facility] [address] [place] [phone] Yovani Glover PA-C [address] [place] [address] [facility] Start: 08-20-2023 [facility] Start: 08-19-2023 Stool culture for bacteria Stool Culture [facility] Start: 08-18-2023 Blood chemistry [facility] Start: 08-18-2023 Duplex scan of lower limb veins US venous duplex LE BI [facility] Start: 08-18-2023 [facility] Start: 08-18-2023 Referral to [facility] Start: 08-17-2023 Hospital admission [facility] Start: 08-17-2023 Physical therapy procedure [facility] Start: 08-17-2023 Referral to occupational therapist [facility] Start: 08-17-2023 [facility] Start: 08-17-2023 Bacteria identified in Stool by Culture [facility] Start: 08-17-2023 [facility] Start: 08-17-2023 Bacteria identified in Blood by Culture [facility] Start: 08-17-2023 Blood culture for bacteria, including anaerobic screen Blood Culture [facility] Start: 07-14-2023 [facility] Start: 07-10-2023 Bacteria identified in Blood by Culture Blood Culture [facility] Start: 07-10-2023 Bacteria identified in Urine by Culture Urine Culture [facility] Start: 07-10-2023 Blood culture for bacteria, including anaerobic screen Blood Culture [facility] Start: 07-10-2023 Hospital admission [facility] Start: 02-26-2023 Hemoglobin A1c measurement Diabetes: Hemoglobin A1C [facility] Start: 12-31-2022 [facility] Start: 12-26-2022 Hospital admission [facility] Start: 12-26-2022 Referral to [facility] Start: 12-26-2022 [facility] Start: 12-26-2022 [facility] Start: 08-03-2020 Creatinine monitoring Creatinine monitoring [place], [place] Start: 08-03-2020 Potassium monitoring Potassium monitoring [place], [place] Start: 08-02-2019 Annual Wellness Visit (AWV) Annual Wellness Visit (AWV) [place], [place] Start: 06-28-2019 Influenza vaccination Flu vaccine (#1) [place], [place] Start: 2010 DEXA (modify frequency per FRAX score) DEXA (modify frequency per FRAX score) [place] Start: 2010 Fall Risk Screening Fall Risk Screening [facility] Start: 2010 Pneumococcal 65+ years Vaccine (1 of 2 - PCV13) Pneumococcal 65+ years Vaccine (1 of 2 - PCV13) [place] Start: 1995 Administration of varicella zoster vaccine Zoster (Shingles) Vaccine (1 of 2) [facility] Start: 1995 Breast cancer screen Breast cancer screen [place], [place] Start: 1995 Colon cancer screen colonoscopy Colon cancer screen colonoscopy [place], [place] Start: 1995 Shingles Vaccine (1 of 2) Shingles Vaccine (1 of 2) [place] Start: 1995 Zoster Vaccines (1 of 2) Zoster Vaccines (1 of 2) [facility] Start: 1967 DTaP/Tdap/Td Vaccines (1 - Tdap) DTaP/Tdap/Td Vaccines (1 - Tdap) [facility] Start: 1964 DTaP,Tdap and Td Vaccines (1 - Tdap) DTaP,Tdap and Td Vaccines (1 - Tdap) [facility] Start: 1964 DTaP/Tdap/Td vaccine (1 - Tdap) DTaP/Tdap/Td vaccine (1 - Tdap) [place], [place] Start: 1964 Urine screening for protein Diabetes: Urine Protein Screening [facility] Start: 1963 Adult BMI Follow Up Plan Adult BMI Follow Up Plan [facility] Start: 1963 Diabetes mellitus screening Diabetes Screening [facility] Start: 1963 Hepatitis C screening Hepatitis C Screening [facility] Start: 1955 Glaucoma screening Diabetes: Retinopathy Screening [facility] Start: 1955 Lipid screen Lipid screen [place], [place] Start: 1945 Creatinine measurement Creatinine Level [facility] Start: 1945 Hepatitis C screen Hepatitis C screen [place], [place] Start: 1945 Lipid panel Lipid Panel [facility] Start: 1945 Medicare Annual Wellness Visit [facility] Start: 1945 Potassium measurement Potassium Level [facility] Start: 1945 Tobacco Counseling Tobacco Counseling [facility] Anion gap measurement [facility] Bacteria identified in Urine by Culture URINE CULTURE, ROUTINE Lab Routine 10/07/2024 2:58 AM EST [facility] Basophils [#/volume] in Blood by Automated count [facility] Basophils/100 leukoc ytes in Blood by Automated count [facility] BLOOD CULTURE 1 BLOOD CULTURE 1 Lab Routine 09/19/2024 12:22 PM EST [facility] BLOOD CULTURE 2 BLOOD CULTURE 2 Lab Routine 09/19/2024 12:23 PM EST [facility] Healthcare BLOOD CULTURE 2 BLOOD CULTURE 2 Lab Routine 10/12/2024 7:25 PM EST [facility] Healthcare Eosinophils [#/volum e] in Blood [facility] Eosinophils/100 leukocytes in Blood by Automated count [facility] Erythrocyte distribu tion width [Ratio] by Automated count [facility] Erythrocytes [#/volu me] in Blood [facility] Hematocrit [Volume Fraction] of Blood [facility] Hemoglobin [Mass/vol ume] in Blood [facility] Initiate Oxygen Ther apy Protocol Initiate Oxygen Therapy Protocol Respiratory Care Routine Daily until discontinued starting 08/02/2019 [place], [place] Comment on above: Daily until discontinued starting 2018 Leukocytes [#/volume ] corrected for nucleated erythrocytes in Blood by Automated coun [facility] Leukocytes [#/volume ] in Blood [facility] Lymphocytes [#/volum e] in Blood by Automated count [facility] Lymphocytes/100 leukocytes in Blood by Automated count [facility] MCH [Entitic mass] b y Automated count [facility] MCHC [Mass/volume] b y Automated count [facility] MCV [Entitic volume] by Automated count [facility] Monocytes [#/volume] in Blood by Automated count [facility] Monocytes/100 leukoc ytes in Blood by Automated count [facility] Neutrophils [#/volum e] in Blood by Automated count [facility] Neutrophils/100 leukocytes in Blood by Automated count [facility] Nucleated erythrocyt es [Presence] in Blood by Automated count [facility] Patient Education [facility] Work Phone: Patient referral [facility] Work Phone: Platelet mean volume [Entitic volume] in Blood by Automated count [facility] Platelets [#/volume] in Blood [facility] End: 08-02-2019 PREVIOUS SPECIMEN PREVIOUS SPECIMEN Lab Routine Once for 1 Occurrences starting 08/02/2019 until 08/02/2019 [place], [place] Comment on above: Once for 1 Occurrences starting 08/02/20 19 until 08/02/2019 PREVIOUS SPECIMEN PREVIOUS SPECI MEN Lab Routine 08/02/2019 9:43 AM EDT [place] End: 05-01-2025 Pulmonary function test Complete PFT w/ BD (Spirometry (Flow Volume Loop) pre/post short acting bronchodilator w/ DLCO (diffusion study) and Lung Volume) Pulmonary function test Complete PFT w/ BD (Spirometry (Flow Volume Loop) pre/post short acting bronchodilator w/ DLCO (diffusion study) and Lung Volume) PFT Routine Chronic obstructive pulmonary disease, unspecified COPD type ([facility]) 1 Occurrences starting 05/01/2024 until 05/01/2025 [facility] Work Phone: Comment on above: 1 Occurrences starting 05/01/2024 until 05/01/2025 Urinalysis complete panel - Urine Urinalysis with microscopic Lab Routine Urinary tract bacterial infections Stage 3a chronic kidney disease (HCC) ([facility]) Ordered: 12/09/2023 [facility] Comment on above: Ordered: 12/09/2023 End: 01-27-2024 [facility] Work Phone: Comment on above: Once for 1 Occurrences starting 01/27/20 24 until 01/27/2024 Immunizations Immunization Date Immunization Notes Care Provider Napoleon garibay 09-02-2023 Influenza, High-dose , Quadrivalent Amrit Ortega [facility] 09-02-2023 influenza virus vaccine, unspecified formulation Angela Zirker PROSPECTING OBSERVER-HIGH PRESSURE CLEANER Work Phone: [facility] 08-31-2023 tuberculin skin test ; unspecified formulation Angela Zirker PROSPECTING OBSERVER-HIGH PRESSURE CLEANER Work Phone: [facility] 08-21-2023 tuberculin skin test ; unspecified formulation Angela Zirker PROSPECTING OBSERVER-HIGH PRESSURE CLEANER Work Phone: [facility] 01-07-2023 SARS-COV-2 (COVID-19 ) vaccine, mRNA, spike protein, LNP, bivalent, preservative free, 30 mcg/0.3 mL dose, monserrat-sucrose formulation Gustavo Salas DO Work Phone: [facility] 01-07-2023 tuberculin skin test ; unspecified formulation Angela Girishrjoyce PROSPECTING OBSERVER-HIGH PRESSURE CLEANER Work Phone: [facility] 12-31-2022 tuberculin skin test ; purified protein derivative solution, intradermal Gustavo Salas DO Work Phone: [facility] 12-31-2022 tuberculin skin test ; unspecified formulation Angela Girishrjoyce PROSPECTING OBSERVER-HIGH PRESSURE CLEANER Work Phone: [facility] 07-30-2022 influenza, high dose seasonal, preservative-free Gustavo Salas DO Work Phone: [facility] 07-30-2022 Influenza, High-dose Seasonal, Quadrivalent, Preservative Free Gustavo Salas DO Work Phone: [facility] 06-08-2021 pneumococcal polysaccharide vaccine, 23 valent Gustavo Salas DO Work Phone: [facility] 03-09-2021 COVID-19 Moderna Tanya Cesar Other [facility] 02-10-2021 COVID-19 Moderna Tanya Cesar Other [facility] 11-07-2020 influenza, high dose seasonal, preservative-free Gustavo Salas DO Work Phone: [facility] 11-07-2020 influenza, seasonal, injectable Jenna Engle MD Work Phone: [facility] Work Phone: 08-04-2020 Seasonal trivalent influenza vaccine, adjuvanted, preservative free Gustavo Salas DO Work Phone: [facility] 07-14-2018 influenza, high dose seasonal, preservative-free Jorge A Renetta Other [facility] 07-14-2018 influenza virus vaccine, unspecified formulation DO Gustavo Salas Work Phone: [facility] 07-13-2018 Influenza, High-dose , Quadrivalent Gustavo Salas DO Work Phone: [facility] 08-02-2017 influenza, high dose seasonal, preservative-free Jorge A Renetta Other [facility] Other 08-02-2017 influenza virus vaccine, unspecified formulation DO Gustavo Salas Work Phone: [facility] 08-01-2017 Influenza, High-dose , Quadrivalent Gustavo Salas DO Work Phone: [facility] 07-26-2016 pneumococcal conjuga te vaccine, 13 valent Jorge A Renetta Other [facility] 07-26-2016 influenza, high dose seasonal, preservative-free Jorge A Renetta Other [facility] Other 07-26-2016 influenza virus vaccine, unspecified formulation DO Gustavo Salas Work Phone: [facility] 07-25-2016 Influenza, High-dose , Quadrivalent Gustavo Salas DO Work Phone: [facility] 08-23-2015 influenza, high dose seasonal, preservative-free Jorge A Renetta Other [facility] Other 08-23-2015 influenza virus vaccine, unspecified formulation DO Gustavo Salas Work Phone: [facility] 08-22-2015 Influenza, High-dose , Quadrivalent Gustavo Salas DO Work Phone: [facility] 10-28-2014 pneumococcal polysaccharide vaccine, 23 valent Jenna Engle MD Work Phone: [facility] Work Phone: 07-26-2014 influenza, seasonal, injectable Gustavo Salas DO Work Phone: [facility] 07-08-2014 influenza, injectabl e, quadrivalent, contains preservative Jorge A Renetta Other [facility] 09-28-2013 influenza, injectabl e, quadrivalent, contains preservative Jorge A Renetta Other [facility] 12-04-2010 pneumococcal conjuga te vaccine, 7 valent Jorge A Renetta Other [facility] Other 12-04-2010 pneumococcal Conjuga te, unspecified formulation DO Gustavo Salas Work Phone: [facility] Payers Date Payer Category Payer Medicaid [id number] 2024 Medicare (Managed Care) [facility] MEDICARE [id number] 2024 Medicare HMO [facility] MED[facility] [id number] 2024 Unknown [id number] 2024 Self-pay [id number] 2023 Private Health Insurance [facility] D[facility] [employer] DUAL COMPLETE [id number] 2023-Present [address] [address] [place] [address] [id number] 2022 Medicare [id number] 2021 Medicaid [id number] 2018 Medicare [id number] 2017 Private Health Insurance [id number] 2014 Medicaid [id number] 2014 Medicaid MEDICAID [facility] DEPT OF JOB xxxxxxxxxxxx 2014-Present [phone] [address] [place] [address] xxxxxxxxxxxx [id number] 2014 Medicare [id number] 2014 Medicare MEDICARE [employer] E [employer] A [employer] B xxxxxxxxxxx 2014-Present [phone] [place] [address] xxxxxxxxxxx [id number]. [id number] 1945 Unknown [id number] 2.16.840.1.804796.3.579. 2.175 1945 Unknown [id number] 2.16.840.1.351691.3.579. 2.356 1945 Unknown [id number] 2.16.840.1.451938.3.579. 2.356 1945 Unknown [id number] 2.16.840.1.202934.3.579. 2.593 1945 Unknown [id number] 2.16.840.1.069158.3.579. 2.1244 1945 Unknown [id number] 2.16.840.1.703719.3.579. 2.1244 1945 Unknown [id number] 2.16.840.1.071447.3.579. 2.727 1945 Unknown [id number] 2.16.840.1.664023.3.579. 2.727 1945 Unknown [id number] 2.16.840.1.220443.3.579. 2.1286 1945 Unknown [id number] 2.16.840.1.417019.3.579. 2.1286 1945 Unknown [id number] 2.16.840.1.898520.3.579. 2.1286 1945 Unknown [id number] 2.16.840.1.317511.3.579. 2.1286 1945 Unknown [id number] 2.16.840.1.385099.3.579. 2.1286 1945 Unknown [id number] 2.16.840.1.426829.3.579. 2.1286 1945 Unknown [id number] 2.16.840.1.912649.3.579. 2.1286 1945 Unknown [id number] 2.16.840.1.866768.3.579. 2.1286 1945 Unknown [id number] 2.16.840.1.083868.3.579. 2.1286 1945 Unknown [id number] 2.16.840.1.175130.3.579. 2.1286 1945 Unknown [id number] 2.16.840.1.851509.3.579. 2.1286 1945 Unknown [id number] 2.16.840.1.638069.3.579. 2.128 1945 Unknown [id number] 2.16.840.1.791621.3.579. 2.128 1945 Unknown [id number] 2.16.840.1.134646.3.579. 2.1286 1945 Unknown [id number] 2.16.840.1.516043.3.579. 2.128 1945 Unknown [id number] 2.16.840.1.884172.3.579. 2.1286 1945 Unknown [id number] 2.16.840.1.749259.3.579. 2.128 1945 Unknown [id number] 2.16.840.1.697207.3.579. 2.128 1945 Unknown [id number] 2.16.840.1.892051.3.579. 2.1285 1945 Unknown [id number] 2.16.840.1.002661.3.579. 2.128 1945 Unknown [id number] 2.16.840.1.809710.3.579. 2.128 1945 Unknown [id number] 2.16.840.1.193376.3.579. 2.1285 1945 Unknown [id number] 2.16.840.1.538630.3.579. 2.1285 1945 Unknown [id number] 2.16.840.1.773786.3.579. 2.1285 1945 Unknown [id number] 2.16.840.1.648166.3.579. 2.1285 1945 Unknown [id number] 2.16.840.1.277824.3.579. 2.1285 1945 Unknown [id number] 2.16.840.1.175210.3.579. 2.1285 1945 Unknown [id number] 2.16.840.1.591289.3.579. 2.1285 1945 Unknown [id number] 2.16.840.1.157318.3.579. 2.1285 1945 Unknown [id number] 2.16.840.1.053611.3.579. 2.1285 1945 Unknown [id number] 2.16.840.1.813903.3.579. 2.1285 1945 Unknown [id number] 2.16.840.1.343297.3.579. 2.1285 1945 Unknown [id number] 2.16.840.1.044548.3.579. 2.1285 1945 Unknown [id number] 2.16.840.1.928897.3.579. 2.1285 1945 Unknown [id number] 2.16.840.1.169629.3.579. 2.1285 1945 Unknown [id number] 2.16.840.1.760159.3.579. 2.1285 1945 Unknown [id number] 2.16.840.1.822528.3.579. 2.1286 1945 Unknown [id number] 2.16.840.1.936126.3.579. 2.1286 1945 Unknown [id number] 2.16.840.1.055031.3.579. 2.1258 1945 Unknown [id number] 2.16.840.1.307994.3.579. 2.125 1945 Unknown [id number] 2.16.840.1.622650.3.579. 2.1258 1945 Unknown [id number] 2.16.840.1.831812.3.579. 2.1258 1945 Unknown [id number] 2.16.840.1.568686.3.579. 2.1258 1945 Unknown [id number] 2.16.840.1.090262.3.579. 2.1258 1945 Unknown [id number] 2.16.840.1.933501.3.579. 2.1258 1945 Unknown [id number] 2.16.840.1.253385.3.579. 2.1258 1945 Unknown [id number] 2.16.840.1.521149.3.579. 2.1258 1945 Unknown [id number] 2.16.840.1.343030.3.579. 2.1258 1945 Unknown [id number] 2.16.840.1.889573.3.579. 2.1258 1945 Unknown [id number] 2.16.840.1.394914.3.579. 2.1246 Medicare [id number] 2.16840.1.899258.19 Unknown [facility] 2 [id number] Unknown [id number] 2.16.840.1.596043.3.579. 2.531 Unknown [id number] 2.16.840.1.590962.3.579. 2.531 Social History Date Type Detail Facility Start: 06-23-2012 End: 05-06-2024 Tobacco smoking status NHIS Former smoker [facility] Start: 10-16-1974 End: 10-16-2019 History of tobacco use Current smoker [place], [place] Start: 10-16-1974 End: 10-16-2019 History of tobacco use Cigarette Smoker [place] Start: 06-23-2012 End: 12-08-2020 Alcohol intake No [place] Start: 06-23-2012 Alcohol Comment stopped 20 years [place], [place] Start: 1945 Sex Assigned At Not on file [place] Start: 1945 Sex Assigned At Female F [facility] Start: 08-23-2023 End: 10-06-2023 Tobacco smoking status WVIS Smokes tobacco daily [facility] Start: 12-08-2020 End: 08-23-2023 Cigarettes smoked current (pack per day) - Reported 0.5 [facility] History of tobacco use Passive smoker [facility] Start: 08-23-2023 End: 10-06-2023 Tobacco use and exposure Smokeless tobacco non-user [facility] Start: 12-09-2023 End: 03-17-2024 Alcohol intake Lifetime non-drinker (finding) [facility] How often to you hav e a drink containing alcohol? Never [facility] How many standard drinks containing alcohol do you have on a typical day? Patient does not drink [facility] Start: 08-23-2023 Tobacco Comment ECW [noted 02/25 05/19] : Former smoker ; quit date 01/26/2022 [facility] Start: 03-23-2023 Alcohol Comment caffeine 2-3 c ups/day; pepsi 2 cans/day [facility] Start: 12-27-2023 End: 02-10-2024 Exposure to SARS-CoV-2 (event) Not sure [facility] Start: 01-30-2024 Tobacco smoking status Light t obacco smoker (finding) [facility] Start: 02-10-2024 Tobacco smoking stat us NHIS Occasional tobacco smoker [facility] Work Phone: Has the electric, [employer], oil, or water company threatened to shut off services in your home in past 12Mo No [employer] [facility] Start: 04-08-2019 Sex Female (finding) [facility] Medical Equipment Procedure Code Equipment Code Equipment Origin al Text Equipment Identifier Dates CL CLOSURE DEVIC E EXOSEAL 6F FDA Start: 04-29-2019 CL STENT KELLY 2.75 X 23 FDA Start: 04-29-2019 Orthopaedic bone screw, non-bioabsorbable, non-sterile [id number] FDA Start: 09-02-2020 Femur nail, sterile ()[id number] FDA Start: 09-02-2020 Spiral blade ()[id number] FDA Start: 09-02-2020 CL CLOSURE DEVIC E [...] goal: Patient plans for a safe discharge. Personal health goal Comment on above: Formatting of this n ote might be different from the original. Evaluation of progress towards goal: lists sent to [facility] Functional Status Date Assessment Result Facility 02-17-2024 Functional status 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 Baseline [facility] Work Phone: 02-14-2024 Functional status Patient Not at Baseline [facility] Work Phone: 01-30-2024 Functional Status N/A [facility] 08-20-2023 Functional status Patient at Baseline [facility] Work Phone: 07-14-2023 Functional status Patient at Baseline [facility] Work Phone: 12-31-2022 Functional status Patient Not at Baseline [facility] Work Phone: Mental Status Date Assessment Result Facility 02-17-2024 Cognitive function Cognitive Sta tus Patient at Baseline [facility] Work Phone: 02-14-2024 Cognitive function Cognitive Sta tus Patient at Baseline [facility] Work Phone: 08-20-2023 Cognitive function Cognitive Sta tus Patient at Baseline [facility] Work Phone: 07-14-2023 Cognitive function Cognitive Sta tus Patient at Baseline [facility] Work Phone: 12-31-2022 Cognitive function Cognitive Sta tus Patient at Baseline [facility] Work Phone: Clinical Notes 01-18-2022 to 10-26-2024 Chano Presley, - 10/26/2024 4:50 PM Yesy Presley, DO - 10/20/2024 2:59 PM Yesy Presley, DO - 10/16/2024 3:17 PM Ashleigh Salas, DO - 10/06/2024 2:30 PM EST Note Date & Type Note Facility 10-26-2024 History of Present illness Narrative Patient Name: Gera Perdue Date of : 1945 Date of Service: 10/26/2024 Facility: [facility] Type of Visit: Skilled Visit Subjective Gera Perdue is a 78 y.o. female seen today at halfway facility for therapy visit. Gera is participating [...] Chronic obstructive pulmonary disease with acute exacerbation ([facility] 3. Sleep apnea, unspecified type 4. Moderate episode of recurrent major depressive disorder ([facility]) 5. Atherosclerosis of [place] coronary artery of [place] heart without angina pectoris 6. Closed wedge [...] Chano Presley DO [facility] History of Present illness Narrative Patient Name: Gera Perdue Date of : 1945 Date of Service: 10/20/2024 Facility: [facility] Type of Visit: Skilled Visit Subjective Gera Perdue is a 78 y.o. female seen today at halfway facility for therapy visit. Gera therapy and [...] past and it worked better. The optum [employer] OPER[employer] saw her and her med list from [...] obstructive pulmonary disease with acute exacerbation (CMS-HCC) 2. Pneumonia of right lower lobe due to infectious organism 3. Gastroesophageal reflux disease without esophagitis 4. Closed wedge compression fracture of T6 vertebra with routine healing, subsequent encounter 5. Moderate episode of recurrent major depressive disorder ([facility]) 6. Encephalopathy, unspecified type I am going [...] Chano Presley DO documented in this encounter [facility] 10-16-2024 History of Present illness Narrative Patient Name: Gera Perdue Date of : 1945 Date of Service: 10/16/2024 Facility: [facility] Type of Visit: Admission H&P Subjective Gera Perdue is a 78 y.o. female seen today at halfway facility for admission H&P. Gera presents to [facility] for therapy. She was recently admitted to the [facility] for a COPD exacerbation and [...] Medical History: Diagnosis Date Acute respiratory failure [place] 10/05/2023 Chronic kidney disease (CKD), stage III (moderate) [place] Compression fracture of C7 vertebra ([facility] 10/18/2023 COPD (chronic obstructive pulmonary disease) ([facility] Depression Eczema GERD (gastroesophageal reflux disease) Hyperlipidemia Hypertension MRSA bacteremia 10/15/2023 Osteoarthritis Pulmonary hypertension ([facility] Shortness of breath 02/19/2024 Sleep apnea TIA (transient ischemic attack) Past Surgical History: Procedure Laterality Date BRONCHOSCOPY ALVEOLAR LAVAGE N/A 02/24/2024 Performed by Elsa Quinonez MD at [facility] No family history on file. Allergies: Aspirin, Oxycodone, and Oxycodone-acetaminophen Code Status: DNRCC-A The following portions of the patient's history [...] Chronic obstructive pulmonary disease with acute exacerbation ([facility]) 2. Sleep apnea, unspecified type 3. Anxiety 4. Insomnia, unspecified type 5. Closed fracture of sixth thoracic vertebra with routine healing, unspecified fracture morphology, subsequent encounter 6. Atherosclerosis of [place] coronary artery of [place] heart without angina pectoris Admit to [facility] for therapies. Continue medications for the [...] Chano Presley DO documented in this encounter [facility] 10-06-2024 History of Present illness Narrative Images from the original note were not included. Subjective Patient ID: Gera Perdue is a 78 y.o. female who presents for Hospital Follow-up. HPI Review of Systems Objective Physical Exam Assessment/Plan Problem List Items Addressed This Visit Failed back syndrome COPD (chronic obstructive pulmonary disease) ([facility]) - Primary Foraminal stenosis of lumbar region NO show documented in this encounter [facility] 07-23-2024 History of Present illness Narrative Patient: Gera Perdue : 1945 PCP: Gustavo Salas, SUBJECTIVE Patient presents today for follow up [...] with minimal improvement and rates pain a Allergies: Allergies Allergen Reactions Aspirin Other Reaction(s): Mental Status Change Acetaminophen GI intolerance Oxycodone GI intolerance Oxycodone-Acetaminophen GI intolerance Past Medical History: Past Medical History: Diagnosis Date Abdominal hernia Acute hip pain 03/25/2024 ARTURO (acute kidney injury) ([facility]) 10/05/2023 Anticoagulated 08/02/2019 Anxiety Arthritis At risk for falls Attention to colostomy ([facility]) 05/27/2014 Carotid stenosis Carotid stenosis, bilateral 03/25/2024 Chronic respiratory failure with hypoxia ([facility]) 01/06/2024 Chronic ulcer of left foot with fat layer exposed ([facility]) Closed head injury 03/25/2024 Closed intertrochanteric fracture of left hip ([facility]) 03/25/2024 Cognitive communication deficit 12/31/2022 Colon polyps Colostomy status ([facility]) 02/25/2015 Constipation Contusion of hip 03/25/2024 COPD (chronic obstructive pulmonary disease) ([facility]) COPD with asthma overlap Cough with expectoration 01/06/2024 Decubitus ulcer of left buttock, stage 1 03/25/2024 Depression ([facility]) Dermatitis Diabetic neuropathy ([facility]) 03/25/2024 Difficulty in walking, not elsewhere classified 08/20/2023 Diverticulitis of intestine, part unspecified, without perforation or abscess without bleeding 12/31/2022 Diverticulosis Encephalopathy Essential tremor 03/25/2024 Facet arthritis of lumbosacral region 03/25/2024 Failed back surgical syndrome Fall Falls frequently 08/20/2023 Female incontinence Frequent UTI 01/06/2024 GERD (gastroesophageal reflux disease) Heart disease History of diverticulitis 02/25/2015 HLD (hyperlipidemia) ([facility]) HTN (hypertension) ([facility]) Impaired mobility and ADLs 03/25/2024 Inability to perform activities of daily living 03/25/2024 Incisional hernia without obstruction or gangrene Insomnia Intertrigo 12/31/2022 Intrinsic (allergic) eczema 08/21/2023 Leukocytosis 03/25/2024 Longstanding persistent atrial fibrillation ([facility]) 08/02/2019 Lower extremity edema Major depressive disorder, recurrent, unspecified ([facility]) 12/31/2022 Microcytic anemia 01/06/2024 Mild congestive heart failure ([facility]) 03/25/2024 Muscle weakness (generalized) 12/31/2022 Nausea and vomiting 03/25/2024 Neck pain Nicotine dependence, unspecified, uncomplicated 12/31/2022 Nutritional deficiency, unspecified 08/27/2023 Obesity Obesity OM (onychomycosis) Osteoarthritis of left hip 03/25/2024 Osteoporosis ([facility]) Osteoporosis ([facility] Personal history of transient ischemic attack (TIA), and cerebral infarction without residual deficits 12/31/2022 Physical deconditioning 03/25/2024 Plantar verruca Pneumonia of right lower lobe due to infectious organism 02/19/2024 Polyneuropathy, unspecified 08/20/2023 Pulmonary hypertension ([facility]) 12/31/2022 S/P right coronary artery (RCA) stent placement S/P total left hip arthroplasty Sinus tarsi syndrome of left foot Sleep apnea Small bowel obstruction ([facility]) 08/01/2019 Smoker SOB (shortness of breath) Speech [...] mouth Daily, Disp: 90 tablet, Rfl: 2 Eufowpozuji-Rsmpakssk-Ejyrcl (Trelegy Ellipta) 100-62.5-25 MCG/ACT aerosol powder , Inhale 1 puff in the morning., Disp: 1 each, Rfl: 3 Xhemfysfwod-Jliougiiy-Slvcrx (Trelegy Ellipta) 200-62.5-25 MCG/ACT aerosol powder , [...] Disp: 90 tablet, Rfl: 3 nystatin (Mycostatin) [id number] UNIT/GM powder, Apply topically 2 (two) times [...] Insecurity: No Food Insecurity (02/19/2024) Received from [employer], [employer] Hunger Screening Within the past 12 months we worried whether our food would run out before we got money to buy more.: Never True Within the past 12 months the food we bought just didn't last and we didn't have money to get more.: Never True Transportation Needs: No Transportation Needs (02/19/2024) Received from [employer], [employer] PRAPARE - Transportation Lack of Transportation (Medical): No Lack of Transportation (Non-Medical): No Physical Activity: Not on file Stress: Not on file Social Connections: Not on file Intimate Partner Violence: Not on file Housing Stability: Low Risk (02/19/2024) Received from [employer], [employer] Housing Instability Are you worried or concerned [...] well as Achilles tendon with negative palpable Sims ASSESSMENT 1. Other specified disorders of synovium, [...] Kalyan Barboza DPM documented in this encounter [facility] 07-02-2024 History of Present illness Narrative [...] hip pain 03/25/2024 ARTURO (acute kidney injury) ([facility]) 10/05/2023 Anticoagulated 08/02/2019 Anxiety Arthritis At risk for falls Attention to colostomy ([facility]) 05/27/2014 Carotid stenosis Carotid stenosis, bilateral 03/25/2024 Chronic respiratory failure with hypoxia ([facility]) 01/06/2024 Chronic ulcer of left foot with fat layer exposed ([facility]) Closed head injury 03/25/2024 Closed intertrochanteric fracture of left hip ([facility]) 03/25/2024 Cognitive communication deficit 12/31/2022 Colon polyps Colostomy status ([facility]) 02/25/2015 Constipation Contusion of hip 03/25/2024 COPD (chronic obstructive pulmonary disease) ([facility]) COPD with asthma overlap Cough with expectoration 01/06/2024 Decubitus ulcer of left buttock, stage 1 03/25/2024 Depression ([facility]) Dermatitis Diabetic neuropathy ([facility]) 03/25/2024 Difficulty in walking, not elsewhere classified 08/20/2023 Diverticulitis of intestine, part unspecified, without perforation or abscess without bleeding 12/31/2022 Diverticulosis Encephalopathy Essential tremor 03/25/2024 Facet arthritis of lumbosacral region 03/25/2024 Failed back surgical syndrome Fall Falls frequently 08/20/2023 Female incontinence Frequent UTI 01/06/2024 GERD (gastroesophageal reflux disease) Heart disease History of diverticulitis 02/25/2015 HLD (hyperlipidemia) ([facility]) HTN (hypertension) ([facility]) Impaired mobility and ADLs 03/25/2024 Inability to perform activities of daily living 03/25/2024 Incisional hernia without obstruction or gangrene Insomnia Intertrigo 12/31/2022 Intrinsic (allergic) eczema 08/21/2023 Leukocytosis 03/25/2024 Longstanding persistent atrial fibrillation ([facility]) 08/02/2019 Lower extremity edema Major depressive disorder, recurrent, unspecified ([facility]) 12/31/2022 Microcytic anemia 01/06/2024 Mild congestive heart failure ([facility]) 03/25/2024 Muscle weakness (generalized) 12/31/2022 Nausea and vomiting 03/25/2024 Neck pain Nicotine dependence, unspecified, uncomplicated 12/31/2022 Nutritional deficiency, unspecified 08/27/2023 Obesity Obesity OM (onychomycosis) Osteoarthritis of left hip 03/25/2024 Osteoporosis ([facility]) Osteoporosis ([facility]) Personal history of transient ischemic attack (TIA), and cerebral infarction without residual deficits 12/31/2022 Physical deconditioning 03/25/2024 Plantar verruca Pneumonia of right lower lobe due to infectious organism 02/19/2024 Polyneuropathy, unspecified 08/20/2023 Pulmonary hypertension ([facility]) 12/31/2022 S/P right coronary artery (RCA) stent placement S/P total left hip arthroplasty Sinus tarsi syndrome of left foot Sleep apnea Small bowel obstruction (CMS/HCC) 08/01/2019 Smoker SOB (shortness of breath) Speech [...] mouth Daily, Disp: 90 tablet, Rfl: 2 Enpzsmczprp-Qhwdxatzp-Cqpqcy (Trelegy Ellipta) 100-62.5-25 MCG/ACT aerosol powder , Inhale 1 puff in the morning., Disp: 1 each, Rfl: 3 Bzvzloewcbz-Tsqycbocc-Smkcid (Trelegy Ellipta) 200-62.5-25 MCG/ACT aerosol powder , [...] Disp: 90 tablet, Rfl: 3 nystatin (Mycostatin) [id number] UNIT/GM powder, Apply topically 2 (two) times [...] mg, 40 mg, Intra-articular, Once, Gustavo Salas, Social History: Social History Socioeconomic History Marital [...] Insecurity: No Food Insecurity (02/19/2024) [facility] [employer], [facility] [employer] [facility] Hunger Screening Within the past 12 months we worried whether our food would run out before we got money to buy more.: Never True Within the past 12 months the food we bought just didn't last and we didn't have money to get more.: Never True Transportation Needs: No Transportation Needs (02/19/2024) Received from [employer], [facility] [employer] [facility] PRAPARE - Transportation Lack of Transportation (Medical): No Lack of Transportation (Non-Medical): No Physical Activity: Not on file Stress: Not on file Social Connections: Not on file Intimate Partner Violence: Not on file Housing Stability: Low Risk (02/19/2024) [facility] [employer] Housing Instability Are you worried or concerned [...] well as Achilles tendon with negative palpable Sims DIAGNOSTIC US REPORT: Verbal order for ultrasound [...] Kalyan Barboza DPM documented in this encounter [facility] 06-22-2024 Telephone encounter Note Justina nick [facility] 06-22-2024 Miscellaneous Notes Yennyraza sent documented in this encounter [facility] 03-17-2024 History of Present illness Narrative Subjective Patient ID: Gera Perdue is a 78 y.o. female. Chief Complaint: Hospital follow-up/pneumonia/respiratory failure Gera is here to infectious disease clinic for hospital follow-up appointment. She was hospitalized from February 18 through February 25, 2024. She presented to the emergency center with complaints of shortness of breath, cough, and increased sputum production. She has a medical history significant for coronary artery disease, COPD, restrictive lung disease, chronic hypoxic respiratory failure requiring supplemental oxygen per nasal cannula, history of MRSA bacteremia, TIA, and depression. Prior to above hospitalization she was hospitalized at [facility] and discharged February 16, 2024 with concern for acute gastroenteritis as she was having persistent diarrhea and CT of the abdomen and pelvis did demonstrate wall thickening of the transverse and descending sigmoid colon that was concerning for inflammatory versus infectious etiology however C diff and stool cultures were negative. Hospital diagnosis as follows: Right lower lobe pneumonia VRE bacteriuria likely colonization, asymptomatic Leukocytosis History of COPD and restrictive lung disease Chronic hypoxic respiratory failure on 2-3 L of oxygen at baseline [facility] (discharged on cefdinir and azithromycin) History cigarette smoking-quit in 2022 The following portions of the patient's history were reviewed and updated as appropriate: allergies, current medications, past family history, past medical history, past social history, past surgical history, problem list, and medication reconciliation was completed including current medication and post discharge medication. Review of Systems Constitutional: Negative for fever, chills and fatigue. HENT: Negative for trouble swallowing. Eyes: Negative. Respiratory: Positive for shortness of breath (3LNC). Negative for cough. Cardiovascular: Negative for chest pain and leg swelling. Gastrointestinal: Negative for nausea, vomiting, abdominal pain, diarrhea and constipation. Endocrine: Negative. Genitourinary: Negative for hematuria and difficulty urinating. Musculoskeletal: Positive for gait problem (wheelchair or walker, no recent). Negative for myalgias, arthralgias and neck stiffness. Skin: Negative for color change, pallor, rash and wound. Allergic/Immunologic: Negative. Neurological: Positive for weakness. Negative for speech difficulty and headaches. Hematological: Negative. Psychiatric/Behavioral: Negative for confusion. Objective Physical Exam Constitutional She is oriented to person, place, and time. No distress. Vitals reviewed. HENT Head Normocephalic. Eyes: Pupils are equal, round, and reactive to light. Neck Normal range of motion. Cardiovascular: Normal rate and regular rhythm. Pulses: intact distal pulses Pulmonary/Chest: Effort normal. She has wheezes in the right upper field and the left upper field. No respiratory distress. Abdominal: Bowel sounds are normal. She exhibits no distension. Soft. There is no abdominal tenderness. Musculoskeletal: General: No edema. Normal range of motion. Cervical back: Normal range of motion. Neurological She is alert and oriented to person, place, and time. Skin: Skin is warm and dry. Psychiatric: She has a normal mood and affect. Her behavior is normal. Assessment/Plan 1. Hospital discharge follow-up 2. Chronic respiratory failure with hypoxia, on home O2 therapy [place] 3. Former cigarette smoker 4. Abnormal CT of the chest 5. Longstanding persistent atrial fibrillation ([facility] Orders Placed This Encounter Procedures Ambulatory referral to Pulmonology ([facility]) Refer placed for commercial credit officer in patient with history of right lower lobe pneumonia, COPD, restrictive lung disease, chronic hypoxic respiratory failure, and history of cigarette smoking, quit in 2002 Finalized sputum culture February 24, 2024 with no growth Finalized blood cultures from patient's hospital stay February 19, 2020 4- She completed her antibiotic course of treatment on February 26, 2024 Fortunately at today's appointment, lungs clear other than a few scattered expiratory wheezes, no signs or symptoms of infection Follow-up in the infectious disease clinic as needed Patient encouraged to maintain a healthy lifestyle including eating a well-balanced healthy diet, maintaining a healthy weight, appropriate periods of rest, exercise as approved by primary care provider, and routine follow-up with primary care provider for vaccinations and preventative care. Verbally discussed instructions and plan of care, questions were answered and patient verbalized understanding. Total time spent was 35 minutes: Preparing to see the patient (e.g., review of tests) Obtaining and/or reviewing separately obtained history Performing a medically appropriate examination and/or evaluation Counseling HCIQUI Olivares 03/17/242052 documented in this encounter [facility] 02-19[facility] CHEST W CONT PROCEDURE: [...] Dima Colón MD on 02/19/2024 4:52 PM [facility] 02-16-2024 Progress note Note Date/Time February 16, 2024 12:07pm [facility] [address] [place] [address] Hospitalist Progress Note Signed Patient: Gera Perdue MR#: [id number] : 1945 Acct:[id number] Age/Sex: 78 / F Adm Date: 4 Loc: 3T Room: [address] [place] [address] Type: ADM IN Attending Dr: Lucho Grullon [...] <Electronically signed by Lucho Grullon MD> 02/16/241911 [facility] Work Phone: 1(744) 146-283104-21-2024 Progress note Author Lucho Grullon [facility] February 16, 2024 12:09am Note Date/Time February 15, 2024 3:0 4pm [address] Note Signed Patient: Gera Perdue MR#: [id number] : 1945 Acct:[id number] Age/Sex: 78 / F Adm Date: 4 Loc: 3T Room: [address] [place] [address] Type: ADM IN Attending Dr: Lucho Grullon [...] Plan Documented By: Lucho Grullon MD 02/15/24 1459 Signed By: <Electronically signed by Lucho Grullon MD> 02/16/24 0009 [facility] Work Phone: 1(729) 750-954404-20-2024 History and physical note Author Lucho Grullon [facility] February 15, 2024 12:58am Note Date/Time February 14, 2024 5:5 9pm [facility] [address] [place] [address] Hospitalist H&P Signed Patient: Gera Perdue MR#: [id number] : 1945 Acct:[id number] Age/Sex: 78 / F Adm Date: 4 Loc: Room: [address] [place] [address] Type: ADM IN Attending Dr: Lucho Grullon [...] % (Auto) 23.7 % (.) 02/14/24 11:39 Hyde % (Auto) 12.3 % (.) 02/14/24 11:39 Eos % (Auto) 0.4 % (.) 02/14/24 11:39 Baso % (Auto) 0.9 % (.) 02/14/24 11:39 Nucleat RBC Rel Count 0.1 /100 WBC (0-0.5) 02/14/24 11:39 Neut # (Auto) 8.5 x10E3/uL (1.8-7.7) H 02/14/24 11:39 Lymph # (Auto) 3.2 x10E3/uL (1.00-4.8) 02/14/24 11:39 Hyde # (Auto) 1.7 x10E3/uL (0.0-0.8) H 02/14/24 [...] pH 5.5 (5.0-9.0) 02/14/24 11:50 Ur Specific [place] 1.024 (1.001-1.030) 02/14/24 11:50 Urine Protein 30 [...] <Electronically signed by Lucho Grullon MD> 02/15/24 0055 [facility] Work Phone: 1(230) 292-883204-15-2024 History of Present illness Narrative* Jenna Engle [...] to [facility] from [facility] for nephrology consultation for ARTURO on CKD along with hyperkalemia. This occurred in September 2023. Prior to that she had been living [facility], and has been in and out of [facility] on multiple occasions, being treated for [...] redirect to the Timeline version of the [employer] SmartLink. Wt Readings from Last 3 Encounters: [...] morning with a full glass of water, cristnia empty stomach, and do not take anything [...] smoker 01/06/2024 Frequent UTI 01/06/2024 Angina pectoris ([facility]) 12/04/2023 Coronary artery disease 12/04/2023 Dyspnea 12/04/2023 Essential hypertension 12/04/2023 Hyperlipidemia, mixed 12/04/2023 Assessment: 1. Shortness of breath Follow Up In Cardiology 2. Coronary artery disease involving [place] coronary artery of [place] heart without angina pectoris 3. History of [...] [facility] Follow up : prn Scribe Attestation By signing my name below, I, Hoa Davis LPN , Ting attest that this documentation has been prepared [...] exam, discussion and plan. documented in this [facility] Work Phone: 1([phone]) 302-603904-15-2024 Instructions* Patient Instructions* Hoa Buck LPN - [...] ordered as needed only documented [facility] Work Phone: 1(244) 695-584804-04-2024 Hospital Discharge instructions Patient Education 01/30/2024 14:50:25 [...] Treatment for this condition includes: Antibiotic medicine. Vhky-cfv-bewhbet medicines to treat discomfort. Drinking enough water [...] Follow these instructions at home: Medicines Take rizn-qsp-uxknsfo and prescription medicines only as told by [...] provider. Document Revised: 05/26/2021 Document Reviewed: 05/26/2021 [employer] Patient Education 2022 [place]. 01/30/2024 14:50:24 Urinary Incontinence Urinary Incontinence Urinary [...] (electrical nerve stimulation). ?For women, using a senior medical transcriptionist to prevent urine leaks. This is a [...] right after experiencing incontinence. General instructions Take aibx-kwf-ukczuhh and prescription medicines only as told by [...] Where to find more information National [place] of Diabetes and Digestive and Kidney Diseases: www.niddk.nih.gov [place] [employer] Association: www.urologyhealth.org Contact a health care [...] provider. Document Revised: 05/19/2021 Document Reviewed: 05/19/2021 [employer] Patient Education 2022 [place]. 01/30/2024 14:50:21 Overactive Bladder, Adult Overactive Bladder, [...] your health care provider. General instructions Take bqja-lwm-mhrhihh and prescription medicines only as told by [...] provider. Document Revised: 07/03/2021 Document Reviewed: 07/03/2021 [employer] Patient Education 2022 [place]. Follow Up Care 01/13/2024 09:25:34 With:CHIP Ponce APRN, Renae Delaney, JYOTI, URL Address: When: Unknown Comments:pending cysto/UD [facility] 04-04-2024 Evaluation + Plan note Diagnostic Tests Pending * Urine Culture 01/30/24 [facility]03-11-2024 History of Present illness Narrative* Jenna [...] to [facility] from [facility] for nephrology consultation for ARTURO on CKD along with hyperkalemia. This occurred in September 2023. Prior to that she had been living [facility], and has been in and out of [facility] on multiple occasions, being treated for [...] 2 views; Future Coronary artery disease involving [place] coronary artery of [place] heart without angina pectoris Stage 3b chronic kidney disease (CMS/HCC) Microcytic anemia History of PTCA Essential hypertension Hyperlipidemia, mixed Obstructive sleep apnea syndrome Chronic respiratory failure with hypoxia (CMS/HCC) Frequent UTI BMI 32.0-32.9,adult Cough with expectoration Current smoker 1. Shortness of breath 2. Coronary artery disease involving [place] coronary artery of [place] heart without angina pectoris 3. Stage 3b chronic kidney disease (CMS/HCC) 4. Microcytic anemia 5. History of PTCA 6. Essential hypertension 7. Hyperlipidemia, mixed 8. Obstructive sleep apnea syndrome 9. Chronic respiratory failure with hypoxia (CMS/HCC) 10. Frequent UTI 11. BMI 32.0-32.9,adult 12. Cough with expectoration 13. Current smoker Patient with multiple comorbidities, atherosclerotic [place] vessel coronary artery disease and riskfactors, recent [...] to smoke. She has history of atherosclerotic [place] vessel coronary artery disease with intolerance to [...] exam, discussion and plan. documented in [facility] Work Phone: 1(432) [phone] Instructions* Patient Instructions* Yaquelin Garcia LPN - [...] two weeks then stop documented in this [facility] Work Phone: 1(950) 962-209202-12-2024 History of Present illness Narrative* Lilliam Cheek, BENCH PRESS OPERATOR - 12/09/2023 11:00 AM EST Subjective Patient ID: Gera Perdue (: 1945) is a 78 y.o. female who presents for Hospital Follow-up. HPI Pt presents and daughter present for hospital follow up. Pt was admitted to [facility] in early September for ARTURO, UTI, and sepsis. Patient was then discharged to the [facility] in [place]. Pt was released from the [facility] on [...] 12 hours cholecalciferol (Vitamin D-3) 50 MCG (1999 UT) capsule 1 capsule, Oral, Every 24 [...] TABLET BY MOUTH EVERY DAY nystatin (Mycostatin) 218946 UNIT/GM powder APPLY TOPICALLY TO THE AFFECTED [...] related osteoporosis (CMS/HCC) Atherosclerotic heart disease of [place] coronary artery without angina pectoris (CMS/HCC) Carotid [...] Recent Results (from the past 2016 hour(s)) [facility] CULTURE URINE Collection Time: 09/22/23 12:00 PM Result Value Ref Range [facility] CULTURE URINE O:KLEPNE Isolated [facility] CULTURE URINE Urine Culture [place] Count [facility] CULTURE URINE >100,000 CFU/ml TBH [...] List Items Addressed This Visit Essential hypertension (CMS/[facility]) Relevant Orders CBC and differential Comprehensive metabolic panel Hyperlipidemia ([facility]) Stage 3a chronic kidney disease (HCC) ([facility]) Relevant Orders Urinalysis with microscopic Magnesium SOB (shortness of breath) - Primary Hospital discharge follow-up Other Visit Diagnoses Wheezing Urinary tract bacterial infections Relevant Orders Urinalysis with microscopic Urine culture (clean catch) Sepsis with acute renal failure without septic shock, due to unspecified organism, unspecified acute renal failure type ([facility]) Medication management Patient presents today with daughter for hospital/halfway follow up. Patient was admitted to [facility] (all hospital records are in Care Everywhere and were reviewed prior to and during appt). With UTI, ARTURO and sepsis. She did receive IV antibiotics through a PICC line which has since been removed. She was discharged to the [facility] for halfway for three weeks and was discharged on11/28/2023. Patient is currently finishing oral Levaquin. Patient denies urnary symptoms or fevers today. Patient does have complaints of leg swelling and shortness of breath. Assessment does consist of wheezing and rhonchi. Daughter did bring a large bag with multiple medications that needed reviewed and sorted out. This BENCH PRESS OPERATOR did review each medication and compared it to the discharge summary from the [facility]. Each medication was discussed and placed in proper labeled bags to assist in the proper set up at home. Patient does have an order for however the company does not have enough staff. I am going to send an order to [facility] as this patient needs and requires a nurse, aide, rn social services and PT. CCM will also be consulted. Patient does discuss concerns of a prolapsed bladder being apossible cause of the UTI's which this does need assessed in a timely manner. Referral sent to DISTRICT RESOURCE OFFICER.Advised daughter to call office within 5-7 days [...] infectious disease follow up on 12/02/2023 and door and arrival attendant on 01/06/2024. Patient will return to the [...] breathing machine I will address this with [facility]. Health Maintenance Topic Date Due Diabetes: Retinopathy [...] follow up with labs. documented in this encounterProgress West [id number] Miscellaneous Notes* Telephone Encounter - Yvonne Kelly RN - 11/12/2023 2:42 PM EST Called Alethea-Patient's daughter back after r/s hospital followup with Dr Galicia for 11-22-2023. Our office does not participate with her Mom's insurance-[facility] [employer]. Appt cancelled. Alethea to call her Mom's [facility] [employer] Customer Service to see what Ellen GUZMAN is on her plan. Alethea to call office back so we can send a referral. [facility] [place] Telephone encounter Note* Telephone Encounter - Yvonne Kelly RN - 11/12/2023 2:42 PM EST Called Alethea-Patient's daughter back after r/s hospital followup with Dr Galicia for 11-22-2023. Our office does not participate with her Mom's insurance-[facility] Dual Complete. Appt cancelled. Alethea to call her Mom's [facility] [employer] Customer Service to see what Ellen GUZMAN is on her plan. Alethea to call office back so we can send a referral. [facility]01-16-2024 Miscellaneous Notes* Telephone Encounter - Nirmala Shirley - 11/12/2023 10:18 AM EST ALETHEA IS CALLING SINCE PT TESTED POSITIVE FOR COVID. PLEASE CALL AND ADVISE ABOUT THE HOSPITAL DISCHARGE FOLLOW UP SHE CAN BE REACHED AT [phone] * Telephone Encounter - Yvonne Kelly RN - 11/12/2023 10:18 AM EST Patient is in isolation until 11-17-2023. Appt r/s with Dr Galicia for 10:30a documented in this encounter[facility] [place] Telephone encounter Note* Telephone Encounter - Nirmala Shirley - 11/12/2023 10:18 AM EST ALETHEA IS CALLING SINCE PT TESTED POSITIVE FOR COVID. PLEASE CALL AND ADVISE ABOUT THE HOSPITAL DISCHARGE FOLLOW UP SHE CAN BE REACHED AT [phone] [facility] [employer] [id number] Telephone encounter Note* Telephone Encounter - Yvonne Kelly RN - 11/12/2023 10:18 AM EST Patient is in isolation until 11-17-2023. Appt r/s with Dr Galicia for 10:30a [facility] [employer] [id number] Miscellaneous Notes* Telephone Encounter - Avtar Ortega - 10/30/2023 12:37 PM EST New patient/Hospital Follow Up DX: Sleep Apnea Scheduled 01/10/24 w/ Dr. Gallagher [facility] Paperwork sent: 10/30/23. Please send paperwork to: [employer] @ [employer] [address] [place] [id number] Ins verified (OON notification); NO WORKMAN'S COMP; NO ACCIDENT documented in [facility] encounter[facility] [place] Telephone encounter Note* Telephone Encounter - Amrit Ortega - 10/30/2023 12:37 PM EST New patient/Hospital Follow Up DX: Sleep Apnea Scheduled 01/10/24 w/ Dr. Gallagher [facility] Paperwork sent: 10/30/23. Please send paperwork to: [employer] @ [address] [facility] [id number] Ins verified (OON notification); NO WORKMAN'S COMP; NO ACCIDENT [facility] [employer]10-24-2023 Discharge summary Author Jesus Alberto Aquino [facility] August 20, 2023 1:32pm Note Date/Time August 20, 2023 1 :32pm [facility] [address] [place] [address] Discharge Summary Signed Patient: Gera Perdue MR#: [id number] : 1945 Acct:[id number] Age/Sex: 77 / F Adm Date: 3 Loc: Room: [address] [place] [address]: Jesus Alberto Aquino MD Copies [...] 08:00 Discharge Plan Discharge Plan Patient Disposition: [facility] Facility Activity: No Activity Restriction Diet: Regular [...] by Jesus Alberto Aquino MD> 08/20/23 1332 [facility] Work Phone: [phone]) 868-149910-23-2023 Progress note Author Jesus Alberto Aquino [facility] August 19, 2023 2:43pm Note Date/Time August 19, 2023 2 :43pm [facility] [address] [place] [address] Hospitalist Progress Note Signed Patient: Gera Perdue MR#: [id number] : 1945 Acct:[id number] Age/Sex: 77 / F Adm Date: 3 Loc: 3T Room: [address] [place] [address] Type: ADM IN Attending Dr: Jesus Alberto [...] Scale 1 - 5 Albuterol/Ipratropium 3 ml 10/22/23 08:00 08/19/23 12:08 Ipratropium/Albuterol 0.5-3 Mg 3 [...] signed by Jesus Alberto Aquino MD> 08/19/231442 [facility] Work Phone: [phone]) 908-281910-22-2023 Progress note Author Jesus Alberto Aquino [facility] August 18, 2023 1:49pm Note Date/Time August 18, 2023 1 :49pm [facility] [address] [place] [address] Hospitalist Progress Note Signed Patient: Gera Perdue MR#: [id number] : 1945 Acct:[id number] Age/Sex: 77 / F Adm Date: 3 Loc: Room: [address] [place] [address] Type: ADM IN Attending Dr: Jesus Alberto [...] signed by Jesus Alberto Aquino MD> 08/18/239 [facility] Work Phone: 1([phone]) 524-611010-21-2023 History and physical note Author Jesus Alberto Aquino [facility] August 17, 2023 7:50pm Note Date/Time August 17, 2023 7 :50pm [facility] [address] [place] [address] Hospitalist H&P Signed Patient: Gera Perdue MR#: [id number] : 1945 Acct:[id number] Age/Sex: 77 / F Adm Date: 3 Loc: Room: [address] [place] [address] Type: ADM IN Attending Dr: Jesus Alberto [...] % (Auto) 7.8 % (.) 08/17/23 16:05 Hyde % (Auto) 5.5 % (.) 08/17/23 16:05 Eos % (Auto) 0.0 % (.) 08/17/23 16:05 Baso % (Auto) 0.2 % (.) 08/17/23 16:05 Nucleat RBC Rel Count 0.1 /100 WBC (0-0.5) 08/17/23 16:05 Neut # (Auto) 25.4 x10E3/uL (1.8-7.7) H 08/17/23 16:05 Lymph # (Auto) 2.3 x10E3/uL (1.00-4.8) 08/17/23 16:05 Hyde # (Auto) 1.6 x10E3/uL (0.0-0.8) H 08/17/23 [...] by Jesus Alberto Aquino MD> 08/17/23 1950 [facility] Work Phone: 1([phone]) 766-178010-21-2023 History and physical note Author Jesus Alberto Aquino [facility] August 17, 2023 7:50pm Note Date/Time August 17, 2023 7 :50pm [facility] [address] [place] [address] Hospitalist H&P Signed Patient: Gera Perdue MR#: [id number] : 1945 Acct:[id number] Age/Sex: 77 / F Adm Date: 3 Loc: Room: [address] [place] [address] Type: ADM IN Attending Dr: Jesus Alberto [...] % (Auto) 7.8 % (.) 08/17/23 16:05 Hyde % (Auto) 5.5 % (.) 08/17/23 16:05 Eos % (Auto) 0.0 % (.) 08/17/23 16:05 Baso % (Auto) 0.2 % (.) 08/17/23 16:05 Nucleat RBC Rel Count 0.1 /100 WBC (0-0.5) 08/17/23 16:05 Neut # (Auto) 25.4 x10E3/uL (1.8-7.7) H 08/17/23 16:05 Lymph # (Auto) 2.3 x10E3/uL (1.00-4.8) 08/17/23 16:05 Hyde # (Auto) 1.6 x10E3/uL (0.0-0.8) H 08/17/23 [...] by Jesus Alberto Aquino MD> 08/17/23 1950 [facility] Work Phone: 1([phone]) 792-150609-17-2023 Discharge summary Author Jolanta Mckenzie [facility] July 14, 2023 11:16am Note Date/Time July 14, 2023 11:16am [facility] [address] [place] [address] Discharge Summary Signed Patient: Gera Perdue MR#: [id number] : 1945 Acct:[id number] Age/Sex: 77 / F Adm Date: 3 Loc: Room: [address] [place] [address]: Jolanta Mckenzie MD Copies to: Gustavo A DO Jolanta Salas MD~ Providers Date of Discharge: 07/14/23 Discharging [...] breathing. Physical therapy wasconsulted with recommendation for halfway facility which patient is refusing understanding the [...] % (Auto) 69.9, Lymph % (Auto) 22.1, Hyde % (Auto) 7.3, Eos % (Auto) 0.4, Baso % (Auto) 0.3, Nucleat RBC Rel Count 0.1, Neut # (Auto) 13.5 H, Lymph # (Auto) 4.3, Hyde # (Auto) 1.4 H, Eos # (Auto) [...] signed by Jolanta Mckenzie MD> 07/14/23 1116 [facility] Work Phone: 1(863) 958-147009-16-2023 Progress note Author Jolanta Mckenzie [facility] July 13, 2023 1:59pm Note Date/Time July 13, 2023 10:40am [facility] [address] [place] [address] Hospitalist Progress Note Signed with Addenda Patient: Gera Perdue MR#: [id number] : 1945 Acct:[id number] Age/Sex: 77 / F Adm Date: 3 Loc: Room: [address] [place] [address] Type: ADM IN Attending Dr: Jolanta Mckenzie [...] but patient also on steroid. Discussed regarding halfway facility she has not decided yet. Give [...] We will continue on decreased dose of beta-juan diego. Continue steroids and bronchodilators for COPD exacerbation. [...] <Electronically signed by Jolanta Mckenzie MD> 07/13/23 7980 [facility] Work Phone: 1(450) 566-957509-15-2023 Progress note Author Jolanta Mckenzie [facility] July 12, 2023 3:00pm Note Date/Time July 12, 2023 2:16pm [facility] [address] [place] [address] Hospitalist Progress Note Signed with Ling Patient: Gera Perdue MR#: [id number] : 1945 Acct:[id number] Age/Sex: 77 / F Adm Date: 3 Loc: Room: [address] [place] [address] Type: ADM IN Attending Dr: Jolanta Mckenzie [...] and switch to oral prednisone. PT recommended halfway facility which patient is refusing with plan [...] 1,000 Ml IV 07/09/24 13:59 75 mls/hr .[id number] JERILYN Administration Ceftriaxone Sodium 1 gm in [...] We will start on decreased dose of beta-juan diego. Continue steroids and bronchodilators for COPD exacerbation. [...] <Electronically signed by Jolanta Mckenzie MD> 07/12/23 1459 [facility] Work Phone: [phone]) 697-684509-14-2023 Progress note Author Jolanta Mckenzie [facility] July 11, 2023 12:47pm Note Date/Time July 11, 2023 10:10am [facility] [address] [place] [address] Hospitalist Progress Note Signed with Ling Patient: Gera Perdue MR#: [id number] : 1945 Acct:[id number] Age/Sex: 77 / F Adm Date: 3 Loc: Room: [address] [place] [address] Type: ADM IN Attending Dr: Jolanta Mckenzie MD Copies to: ~ ADDENDUM1 Patient was personally seen by me on the day of encounter, reviewed her history and performed dai elements of exam and formulated the plan of care and confirmedthe resident/interns note below. Addendum Documented By: Jolanta Mckenzie MD 07/11/23 1247 Addendum Signed By: <Electronically signed by Jolanta [...] 1,000 Ml IV 07/09/24 13:59 75 mls/hr .[id number] JERILYN Administration Ceftriaxone Sodium 1 gm in [...] We will start on decreased dose of beta-juan diego. Continue to hold lisinopril and Lasix for 1 more day. Renal function improving. Consult PT/OT. Documented By: Bhavesh Cristobal MD, RES 07/11/23 094 9 Signed By: <Electronically signed by RES Bhavesh Cristobal> 07/11/23 1010 <Electronically signed by Jolanta Mckenzie MD> 07/11/23 1246 [facility] Work Phone: [phone]) 922-935609-13-2023 History and physical note Author Jolanta Mckenzie [facility] July 10, 2023 1:50pm Note Date/Time July 10, 2023 1:44pm [facility] [address] [place] [address] Hospitalist H&P Signed Patient: Gera Perdue MR#: [id number] : 1945 Acct:[id number] Age/Sex: 77 / F Adm Date: 3 Loc: Room: [address] [place] [address] Type: ADM IN Attending Dr: Jolanta Mckenzie [...] % (Auto) 31.5 % (.) 07/10/23 08:44 Hyde % (Auto) 6.5 % (.) 07/10/23 08:44 Eos % (Auto) 0.4 % (.) 07/10/23 08:44 Baso % (Auto) 0.2 % (.) 07/10/23 08:44 Nucleat RBC Rel Count 0.1 /100 WBC (0-0.5) 07/10/23 08:44 Neut # (Auto) 13.1 x10E3/uL (1.8-7.7) H 07/10/23 08:44 Lymph # (Auto) 6.7 x10E3/uL (1.00-4.8) H 07/10/23 08:44 Hyde # (Auto) 1.4 x10E3/uL (0.0-0.8) H 07/10/23 [...] pH 8.5 (5.0-9.0) 07/10/23 08:44 Ur Specific [place] 1.022 (1.001-1.030) 07/10/23 08:44 Urine Protein 30 [...] signed by Jolanta Mckenzie MD> 07/10/23 1350 [facility] Work Phone: [phone] 625-371303-06-2023 Discharge summary Author Jesus Alberto Aquino [facility] December 31, 2022 3:43pm Note Date/Time December 31, 2022 11:5 7am [facility] [address] [place], [place] [address] Discharge Summary Signed Patient: Gera Perdue MR#: [id number] : 1945 Acct:[id number] Age/Sex: 77 / F Adm Date: 3 Loc: 4N Room: [id number]: Jesus Alberto Aquino MD Copies [...] complications occurred, and patient was discharged to halfway facility in stable condition on December 31. [...] % (Auto) N/A, Lymph % (Auto) N/A, [place] % (Auto) N/A, Eos % (Auto) N/A, Baso % (Auto) N/A, Nucleat RBC Rel Count N/A, Neut # (Auto) N/A, Lymph # (Auto) N/A, [place] # (Auto) N/A, Eos # (Auto) N/A, [...] 09:23 Discharge Plan Discharge Plan Patient Disposition: [facility] Facility Activity: No Activity Restriction Diet: Regular [...] signed by Jesus Alberto Aquino MD> 12/31/22 1542 [facility] Work Phone: [phone]) [phone] Progress note Author Carla Hagan [facility] December 30, 2022 9:53am Note Date/Time December 30, 2022 9:53 am [facility] [address] [place] [address] Hospitalist Progress Note Signed Patient: Gera Perdue MR#: [id number] : 1945 Acct:[id number] Age/Sex: 77 / F Adm Date: 3 Loc: 4N Room: [id number] Type: ADM IN Attending Dr: Carla Hagan [...] place, time and person. Morbidly obese HEENT: [place] conjunctiva and NL buccal mucosa Neck: Supple, [...] anemia Plan is to discharge patient to halfway unit for short period of time for [...] signed by Carla Hagan MD> 12/30/22 0953 [facility] Work Phone: [phone]) 700-160003-04-2023 Progress note Author Carla Hagan [facility] December 29, 2022 10:00am Note Date/Time December 29, 2022 10:0 0am [facility] [address] [place] [address] Hospitalist Progress Note Signed Patient: Gera Perdue MR#: [id number] : 1945 Acct:[id number] Age/Sex: 77 / F Adm Date: 3 Loc: 4N Room: [id number] Type: ADM IN Attending Dr: Carla Hagan [...] place, time and person. Morbidly obese HEENT: [place] conjunctiva and NL buccal mucosa Neck: Supple, [...] signed by Carla Hagan MD> 12/29/22 1000 [facility] Work Phone: [phone] Progress note Author Carla Hagan [facility] December 28, 2022 11:14am Note Date/Time December 28, 2022 9:27 am [facility] [address] [place] [address] Hospitalist Progress Note Signed Patient: Gera Perdue MR#: [id number] : 1945 Acct:[id number] Age/Sex: 77 / F Adm Date: 3 Loc: 4N Room: [address] [place] [address] Type: ADM IN Attending Dr: Carla Hagan [...] any cardiac arrhythmia.? Patient will likely require halfway facility on discharge. Patient is medically cleared for discharge pending placement approval. The patient would likely need to have additional work-up, investigation and therapeutic intervention but will be determined based on the clinical progression and follow-up test result Documented By: Carla Hagan MD 12/28/22 0918 Signed By: <Electronically signed by Carla Hagan MD> 12/28/22 1114 <Electronically signed by DO SEAN Armas> 12/28/22 1048 [facility] Work Phone: 1(310) 148-164103-02-2023 Progress note Author Carla Hagan [facility] December 27, 2022 12:40pm Note Date/Time December 27, 2022 9:25 am [facility] [address] [place], [place] [address] Hospitalist Progress Note Signed Patient: Gera Perdue MR#: [id number] : 1945 Acct:[id number] Age/Sex: 77 / F Adm Date: 3 Loc: 4N Room: [id number] Type: ADM IN Attending Dr: Carla Hagan [...] 3 Ml Ampul.Neb INHALATION 12/27/23 08:59 BID [facility] Atorvastatin Calcium 40 mg 12/27/22 21:00 Atorvastatin 40 Mg Tablet PO 12/27/23 20:59 QPM [facility] Budesonide 0.5 mg 12/27/22 06:00 Budesonide 0.5 Mg/2 Ml Ampul.Neb INHALATION 12/27/23 05:59 BID@0600,1800 [facility] Bupropion HCl 300 mg 12/27/22 09:00 Bupropion 300 Mg Tab.Er.24h PO 12/27/23 08:59 QAM [facility] Calcium Carbonate 600 mg 12/27/22 09:00 Calcium Carbonate 500 Mg Tablet PO 12/27/23 08:59 DAILY [facility] Clopidogrel Bisulfate 75 mg 12/27/22 09:00 Clopidogrel Bisulfate 75 Mg Tablet PO 12/27/23 08:59 DAILY [facility] Heparin Sodium (Porcine) 5,000 unit 12/27/22 06:00 12/27/22 06:14 Heparin 5,000 Unit/Ml Vial SUBCUT 12/27/23 05:59 5,000 unit Q8HR [facility] Administration Hydromorphone HCl 0.5 mg 12/27/22 03:58 Hydromorphone 0.5 Mg/0.5 Ml Syringe IV-PUSH Q4H PRN Pain Scale 8 - 10 Lisinopril 5 mg 12/27/22 09:00 Lisinopril 5 Mg Tablet PO 12/27/23 08:59 DAILY [facility] Metoprolol Succinate 50 mg 12/27/22 09:00 Metoprolol Succinate 50 Mg Tab.Er.24h PO 12/27/23 08:59 DAILY [facility] Nicotine 1 each 12/27/22 00:30 12/27/22 00:48 Nicotine Patch 14 Mg/24hr 1 Each Patch.Td24 TRANSDERML 01/08/23 09:01 1 each DAILY [facility] Administration Nystatin 1 applic 12/27/22 00:30 12/27/22 00:48 Nystatin 100,000 Unit/Gram Powder 15 Gm Bottle TOPICAL 12/27/23 00:29 1 applic BID [facility] Administration Ondansetron HCl 4 mg 12/26/22 23:41 Ondansetron 4 Mg/2 Ml Vial IV-PUSH 12/26/23 23:40 Q8H PRN Nausea And Vomiting Pantoprazole Sodium 40 mg 12/27/22 09:00 Pantoprazole 40 Mg Tablet. PO 12/27/23 08:59 DAILY [facility] Paroxetine HCl 40 mg 12/27/22 09:00 Paroxetine 20 Mg Tablet PO 12/27/23 08:59 QAM [facility] Pregabalin 75 mg 12/27/22 09:00 Pregabalin [...] Gm Tube TOPICAL 12/27/23 08:59 BID [facility] Vitamin D 50 mcg 12/27/22 09:00 Cholecalciferol 25 Mcg (1,000 Units) Tablet PO 12/27/23 08:59 DAILY [facility] A&P - Hospitalist Assessment/Plan (1) Fall: [...] any cardiac arrhythmia.? Patient will likely require halfway facility on discharge. Documented By: Carla Hagan MD 12/27/22 0618 Signed By: <Electronically signed by Carla Hagan MD> 12/27/22 1240 <Electronically signed by DO SEAN Armas> 12/27/22 6872 [facility] Work Phone: 1([phone] 325-824403-02-2023 History and physical note Author Jolanta Mckenzie [facility] December 27, 2022 12:32am Note Date/Time December 26, 2022 11:0 5pm [facility] [address] [place] [address] Hospitalist H&P Signed with Ling Patient: Gera Perdue MR#: [id number] : 1945 Acct:[id number] Age/Sex: 77 / F Adm Date: 3 Loc: 4N Room: [address] [place] [address] Type: ADM IN Attending Dr: Jolanta Mckenzie [...] any cardiac arrhythmia. Patient will likely require halfway facility on discharge. Addendum Documented By: Jolanta [...] 7 days #8 grams 08/04/22 [Rx Confirmed 12/26/22] ammonium lactate 12 % [...] % (Auto) 24.8 % (.) 12/26/22 19:36 Hyde % (Auto) 10.1 % (.) 12/26/22 19:36 Eos % (Auto) 1.1 % (.) 12/26/22 19:36 Baso % (Auto) 0.5 % (.) 12/26/22 19:36 Nucleat RBC Rel Count 0.1 /100 WBC (0-0.5) 12/26/22 19:36 Neut # (Auto) 7.6 x10E3/uL (1.8-7.7) 12/26/22 19:36 Lymph # (Auto) 3.0 x10E3/uL (1.00-4.8) 12/26/22 19:36 Hyde # (Auto) 1.2 x10E3/uL (0.0-0.8) H 12/26/22 [...] signed by MD SEAN Mann> 12/27/22 002 [facility] Work Phone: [phone] NoteHISTORY: Bone density screening. COMPARISON: 08/03/2020 PROCEDURE: [...] signed by Edgar Hooper on 05/01/2022 [facility] [id number] Evaluation note* Encounter Date Diagnosis Assessment Notes Treatment Notes Treatment Clinical Notes Mar, Major depressive disorder, recurrent severe without psychotic features (ICD-10 - F33.2) [facility] [employer] Other 03-24-2022 Evaluation note* Encounter Date Diagnosis Assessment Notes Treatment Notes Treatment Clinical Notes Dec, GERD (gastroesophageal reflux disease) (ICD-10 - K21.9) [facility] Other Discharge summary Author Jesus Alberto Aquino [facility] December 31, 2022 3:43pm Note Date/Time December 31, 2022 11:5 7am [facility] [address] [place] [address] Discharge Summary Signed Patient: Gera Perdue MR#: [id number] : 1945 Acct:[id number] Age/Sex: 77 / F Adm Date: 3 Loc: Room: [address] [place] [address]: Jesus Alberto Aquino MD Copies [...] complications occurred, and patient was discharged to halfway facility in stable condition on December 31. [...] % (Auto) N/A, Lymph % (Auto) N/A, [place] % (Auto) N/A, Eos % (Auto) N/A, Baso % (Auto) N/A, Nucleat RBC Rel Count N/A, Neut # (Auto) N/A, Lymph # (Auto) N/A, Hyde # (Auto) N/A, Eos # (Auto) N/A, [...] 09:23 Discharge Plan Discharge Plan Patient Disposition: [facility] Facility Activity: No Activity Restriction Diet: Regular [...] by Jesus Alberto Aquino MD> 12/31/22 1543 [facility] Work Phone: Discharge summary Author Jolanta Mckenzie [facility] July 14, 2023 11:16am Note Date/Time July 14, 2023 11:16am [facility] [address] [place] [address] Discharge Summary Signed Patient: Gera Perdue MR#: [id number] : 1945 Acct:[id number] Age/Sex: 77 / F Adm Date: 3 Loc: Room: [address] [place] [address]: Jolanta Mckenzie MD Copies to: [...] breathing. Physical therapy wasconsulted with recommendation for halfway facility which patient is refusing understanding the [...] % (Auto) 69.9, Lymph % (Auto) 22.1, Hyde % (Auto) 7.3, Eos % (Auto) 0.4, Baso % (Auto) 0.3, Nucleat RBC Rel Count 0.1, Neut # (Auto) 13.5 H, Lymph # (Auto) 4.3, Hyde # (Auto) 1.4 H, Eos # (Auto) [...] signed by Jolanta Mckenzie MD> 07/14/23 1116 [facility] Work Phone: Discharge summary Author Michoacano Mckenzie [facility] February 17, 2024 4:57pm Note Date/Time February 17, 2024 4:4 6pm [facility] [address] [place], [place] [address] Discharge Summary Signed Patient: Gera Perdue MR#: [id number] : 1945 Acct:[id number] Age/Sex: 78 / F Adm Date: 4 Loc: Room: [address] [place] [address]: Michoacano Mckenzie MD Copies to: [...] by physical and Occupational Therapy, who recommended halfway placement. Patient was very adamant that she [...] signed by Michoacano Mckenzie MD> 02/17/24 1657 [facility] Work Phone: Evaluation noteNo InformationNort [employer] Other Evaluation noteNo assessment information available [facility] Work Phone: Evaluation note* Diagnosis Onset Date Resolution Status Accidental fall acute Head injury acute Inability to perform activities of daily living acute [facility] Work Phone: Evaluation note* Diagnosis Onset Date Resolution Status Accidental fall acute Acute hip pain acute Fall acute Head injury acute Inability to perform activities of daily living acute Physical deconditioning acut e [facility] Work Phone: Evaluation note* Diagnosis Onset Date Resolution Status Acute exacerbation of chroni c obstructive pulmonary disease acute CAD (coronary artery disease) acute Closed head injury acute Contusion of hip acute Fall acute Umbilical hernia acute UTI (urinary tract infection) acute [facility] Work Phone: Evaluation note* Diagnosis Onset Date Resolution Status Acute exacerbation of chroni c obstructive pulmonary disease acute CAD (coronary artery disease) acute Closed head injury acute Contusion of hip acute Fall acute Umbilical hernia acute UTI (urinary tract infection) acute Acute UTI acute ARTURO (acute kidney injury) ac jose rafael Weakness [facility] Work Phone: Evaluation note* Diagnosis SOB [...] bladder prolapse Pulmonary emphysema, unspecified emphysema type ([facility]/HCC) documented in this encounter [facility] HealthcareEvaluation note* Diagnosis Shortness of breath Coronary artery disease involving [place] coronary artery of [place] heart without angina pectoris Stage 3b chronic kidney disease ([facility]/HCC) Microcytic anemia Unspecified iron deficiency anemia History of PTCA Postsurgical percutaneous transluminal coronary angioplasty status Essential hypertension Unspecified essential hypertension Hyperlipidemia, mixed Mixed hyperlipidemia Obstructive sleep apnea syndrome Obstructive sleep apnea (adult) (pediatric) Chronic respiratory failure with hypoxia (CMS/HCC) Frequent UTI Urinary tract infection, site not specified BMI 32.0-32.9,adult Cough with expectoration Cough Current smoker documented in this encounter [facility] Work Phone: Evaluation note* Diagnosis Shortness of breath documented in this encounter [facility] Work Phone: Evaluation note* Diagnosis Shortness of breath Coronary artery disease involving [place] coronary artery of [place] heart without angina pectoris History of PTCA Postsurgical percutaneous transluminal coronary angioplasty status Essential hypertension Unspecified essential hypertension Hyperlipidemia, mixed Mixed hyperlipidemia Obstructive sleep apnea syndrome Obstructive sleep apnea (adult) (pediatric) BMI 35.0-35.9,adult Current smoker Chronic hypoxemic respiratory failure (Multi) Chronic respiratory failure Encounter to discuss test results Other specified counseling documented in this encounter [facility] Work Phone: Evaluation note* Diagnosis Onset Date Resolution Status Nausea and vomiting acute Pneumonia acute UTI (urinary tract infection) acute [facility] Work Phone: Evaluation note* Diagnosis Onset Date Resolution Status CAD (coronary artery disease) acute GERD (gastroesophageal reflux disease) acute Nausea and vomiting acute Pneumonia acute UTI (urinary tract infection) acute COPD (chronic obstructive pulmonary disease) chronic [facility] Work Phone: Evaluation note* Diagnosis Panlobular emphysema (CMS/HCC)- Primary Other emphysema Stage 3a chronic kidney disease (HCC) (CMS/HCC) Atherosclerosis of [place] coronary artery of [place] heart without angina pectoris (CMS/HCC) Mixed hyperlipidemia [...] tissues of limb documented in this encounter [facility] HealthcareEvaluation note* Diagnosis Stage 3a chronic kidney disease (HCC) (CMS/HCC)- Primary Interstitial pulmonary disease, unspecified (CMS/HCC) Primary osteoarthritis involving multiple joints Morbid (severe) obesity due to excess calories (E66.01) Atherosclerosis of [place] coronary artery of [place] heart without angina pectoris (CMS/HCC) Chronic heart failure with preserved ejection fraction (CMS/HCC) Centrilobular emphysema (CMS/HCC) Neural foraminal stenosis of lumbosacral spine Failed back surgical syndrome Mixed hyperlipidemia (CMS/HCC) Mixed hyperlipidemia Acute cystitis without hematuria Anemia due to stage 3a chronic kidney disease (HCC) (CMS/HCC) documented in this encounter [facility] HealthcareEvaluation note* Diagnosis Failed back surgical syndrome Neural foraminal stenosis of lumbosacral spine documented in this encounter [facility] HealthcareEvaluation note* Diagnosis Heel spur, right- Primary Venous insufficiency Unspecified venous (peripheral) insufficiency Onychomycosis Dermatophytosis of nail Toe pain, left Pain in soft tissues of limb Toe pain, right Pain in soft tissues of limb Right Achilles tendinitis documented in this encounter [facility] HealthcareEvaluation note* Diagnosis Other specified disorders of synovium, left ankle and foot- Primary Right Achilles tendinitis Venous insufficiency Unspecified venous (peripheral) insufficiency documented in this encounter [facility] HealthcareEvaluation note* Diagnosis Chronic obstructive pulmonary disease with acute exacerbation (CMS-HCC)- Primary Sleep apnea, unspecified type Anxiety Anxiety state, unspecified Insomnia, unspecified type Closed fracture of sixth thoracic vertebra with routine healing, unspecified fracture morphology, subsequent encounter Atherosclerosis of [place] coronary artery of [place] heart without angina pectoris documented in this encounter [facility]* Diagnosis Chronic obstructive pulmonary disease with acute exacerbation (CMS-HCC)- Primary Pneumonia of right lower lobe due to infectious organism Gastroesophageal reflux disease without esophagitis Esophageal reflux Closed wedge compression fracture of T6 vertebra with routine healing, subsequent encounter Moderate episode of recurrent major depressive disorder (CMS-HCC) Encephalopathy, unspecified type documented in this encounter [facility]* Diagnosis Pneumonia of right lower lobe due to infectious organism- Primary Chronic obstructive pulmonary disease with acute exacerbation (CMS-HCC) Sleep apnea, unspecified type Moderate episode of recurrent major depressive disorder ([facility]-HCC) Atherosclerosis of [place] coronary artery of [place] heart without angina pectoris Closed wedge compression fracture of T6 vertebra with routine healing, subsequent encounter documented in this encounter [facility]* Diagnosis Hospital discharge follow-up- Primary Other follow-up examination Chronic respiratory failure with hypoxia, on home O2 therapy ([facility]) Former cigarette smoker Personal history of tobacco use, presenting hazards to health Abnormal CT of the chest Nonspecific (abnormal) findings on radiological and other examination of other intrathoracic organs Longstanding persistent atrial fibrillation ([facility]-HCC) documented in this encounter [facility]* Diagnosis Chronic obstructive pulmonary disease, unspecified COPD type ([facility]-HCC)- Primary documented in this encounter [facility] SystemHistory and physical note Author Jolanta Mckenzie [facility] December 27, 2022 12:32am Note Date/Time December 26, 2022 11:0 5pm [facility] [address] [place] [address] Hospitalist H&P Signed with Ling Patient: Gera Perdue MR#: [id number] : 1945 Acct:[id number] Age/Sex: 77 / F Adm Date: 3 Loc: 4N Room: [address] [place] [address] Type: ADM IN Attending Dr: Jolanta Mckenzie [...] any cardiac arrhythmia. Patient will likely require halfway facility on discharge. Addendum Documented By: Jolanta [...] negative unless noted below or [facility] Vacc[facility] for [facility]?: Yes Medical History (Updated [...] % (Auto) 24.8 % (.) 12/26/22 19:36 Hyde % (Auto) 10.1 % (.) 12/26/22 19:36 Eos % (Auto) 1.1 % (.) 12/26/22 19:36 Baso % (Auto) 0.5 % (.) 12/26/22 19:36 Nucleat RBC Rel Count 0.1 /100 WBC (0-0.5) 12/26/22 19:36 Neut # (Auto) 7.6 x10E3/uL (1.8-7.7) 12/26/22 19:36 Lymph # (Auto) 3.0 x10E3/uL (1.00-4.8) 12/26/22 19:36 [place] # (Auto) 1.2 x10E3/uL (0.0-0.8) H 12/26/22 [...] signed by MD SEAN Mann> 12/27/22 0022 [facility] Work Phone: History and physical note Author Jolanta Mckenzie [facility] July 10, 2023 1:50pm Note Date/Time July 10, 2023 1:44pm [facility] [address] [place] [address] Hospitalist H&P Signed Patient: Gera Perdue MR#: [id number] : 1945 Acct:[id number] Age/Sex: 77 / F Adm Date: 3 Loc: Room: [address] [place] [address] Type: ADM IN Attending Dr: Jolanta Mckenzie [...] mL) inhalation BID@0600,1800 30 days #100 mL 11/25/20 [Rx Confirmed 12/26/22] bupropion HCl 300 mg [...] % (Auto) 31.5 % (.) 07/10/23 08:44 Hyde % (Auto) 6.5 % (.) 07/10/23 08:44 Eos % (Auto) 0.4 % (.) 07/10/23 08:44 Baso % (Auto) 0.2 % (.) 07/10/23 08:44 Nucleat RBC Rel Count 0.1 /100 WBC (0-0.5) 07/10/23 08:44 Neut # (Auto) 13.1 x10E3/uL (1.8-7.7) H 07/10/23 08:44 Lymph # (Auto) 6.7 x10E3/uL (1.00-4.8) H 07/10/23 08:44 [place] # (Auto) 1.4 x10E3/uL (0.0-0.8) H 07/10/23 [...] pH 8.5 (5.0-9.0) 07/10/23 08:44 Ur Specific [place] 1.022 (1.001-1.030) 07/10/23 08:44 Urine Protein 30 [...] signed by Jolanta Mckenzie MD> 07/10/23 1350 [facility] Work Phone: History general Narrative [...] diverticulosis, >10cm removed. no anastamosis Dr Fonseca, [facility]. Surgical History EGD Surgical History colostomy 01/07 per [facility] Surgical History Bowel resection with reversal o f colostomy 02-25-2015 Surgical History SKIN BIOPSY X 2 ON FACE 6 Surgical History left IM nailing 09-02-20 Surgical History left hip FX 10/2020 Hospitalization History 6 child births Hospitalization History See Above Hospitalization History Kidney stones Hospitalization History [facility] bowel obstruction 10/2019 Hospitalization History Fell/ UTI Hospitalization History FR pt fell left hip fr acture 10/2020 [facility] [employer] Other Hospital course Narrative No data available for this section [facility] Discharge instructions Additional Instructions Use the albuterol inhaler as prescribed here COPD exacerbation take prednisone as prescribed. Take Tylenol as needed for hip pain. Follow-up with your PCP for reevaluation in 5 to 7 days.[facility] Work Phone: Hospital Discharge [...] precautions Care to be managed by [facility] Work Phone: Hospital Discharge [...] wraps to BLE. Change daily and prn -[facility] Work Phone: Hospital Discharge [...] precautions [facility] be [facility] Work Phone: Hospital Discharge instructions No data available for this section [facility] filedocumented in this encounter [facility] filedocumented in this encounter [facility]ructionsNot on filedocumented in this encounter [facility]ructionsNot on filedocumented in this encounter [facility] SystemInstructionsNot on filedocumented in this encounter [facility] SystemInstructionsNot on filedocumented in this encounter [facility] SystemInstructionsNot on filedocumented in this encounter [facility]ructions* Attachments The following attachments cannot be sent through Care Everywhere. * How to Wash Your Hands Properly (Romanian) documented in this encounterProMedica Health SystemProgress note Author Carla Hagan [facility] December 27, 2022 12:40pm Note Date/Time December 27, 2022 9:25 am [facility] EN[facility] [address] [place] [address] Hospitalist Progress Note Signed Patient: Gera Perdue MR#: [id number] : 1945 Acct:[id number] Age/Sex: 77 / F Adm Date: 3 Loc: 4N Room: [address] [place] [address] Type: ADM IN Attending Dr: Carla Hagan [...] Mg Tab.Er.24h PO 12/27/23 08:59 QAM [facility] Calcium Carbonate 600 mg 12/27/22 09:00 Calcium Carbonate 500 Mg Tablet PO 12/27/23 08:59 DAILY [facility] Clopidogrel Bisulfate 75 mg 12/27/22 09:00 Clopidogrel Bisulfate 75 Mg Tablet PO 12/27/23 08:59 DAILY [facility] Heparin Sodium (Porcine) 5,000 unit 12/27/22 06:00 12/27/22 06:14 Heparin 5,000 Unit/Ml Vial SUBCUT 12/27/23 05:59 5,000 unit Q8HR JERILYN Administration Hydromorphone HCl 0.5 mg 12/27/22 03:58 Hydromorphone 0.5 Mg/0.5 Ml Syringe IV-PUSH Q4H PRN Pain Scale 8 - 10 Lisinopril 5 mg 12/27/22 09:00 Lisinopril 5 Mg Tablet PO 12/27/23 08:59 DAILY [facility] Metoprolol Succinate 50 mg 12/27/22 09:00 Metoprolol Succinate 50 Mg Tab.Er.24h PO 12/27/23 08:59 DAILY [facility] Nicotine 1 each 12/27/22 00:30 12/27/22 [...] Mg Tablet. PO 12/27/23 08:59 DAILY [facility] Paroxetine HCl 40 mg 12/27/22 09:00 Paroxetine 20 Mg Tablet PO 12/27/23 08:59 QAM [facility] Pregabalin 75 mg 12/27/22 09:00 Pregabalin 75 Mg Capsule PO 06/25/23 08:59 BID [facility] Sodium Chloride 0 ml 12/26/22 19:02 [...] Gm Tube TOPICAL 12/27/23 08:59 BID [facility] Vitamin D 50 mcg 12/27/22 09:00 Cholecalciferol 25 Mcg (1,000 Units) Tablet PO 12/27/23 08:59 DAILY [facility] A&P - Hospitalist Assessment/Plan (1) Fall: (2) Acute hip pain: (3) Inability to perform activities of daily living: (4) Physical deconditioning: Plan Patient is a 77-year-old female with past medical history of coronary disease status post PCI in 2018 with stent, COPD, hypertension, chronic kidney disease stage III, TIA, sleep apnea and moderate to severe pulmonary hypertension as peredania done in 2019.? Patient brought to the [...] any cardiac arrhythmia.? Patient will likely require halfway facility on discharge. Documented By: Carla Hagan MD 12/27/22 0857 Signed By: <Electronically signed by Carla Hagan MD> 12/27/22 1240 <Electronically signed by DO SEAN Armas> 12/27/22 1130 [facility] Work Phone: Progress note Author Carla Hagan [facility] December 28, 2022 11:14am Note Date/Time December 28, 2022 9:27 am [facility] EN[facility] [address] [place] [address] Hospitalist Progress Note Signed Patient: Gera Perdue MR#: [id number] : 1945 Acct:[id number] Age/Sex: 77 / F Adm Date: 3 Loc: 4N Room: [address] [place] [address] Type: ADM IN Attending Dr: aCrla Hagan [...] Tablet PO 12/27/23 08:59 40 mg QAM JERIYLN Administration Potassium Chloride 20 meq 12/28/22 06:28 [...] any cardiac arrhythmia.? Patient will likely require halfway facility on discharge. Patient is medically cleared for discharge pending placement approval. The patient would likely need to have additional work-up, investigation and therapeutic intervention but will be determined based on the clinical progression and follow-up test result Documented By: Carla Hagan MD 12/28/22 0918 Signed By: <Electronically signed by Carla Hagan MD> 12/28/22 1114 <Electronically signed by DO RES Morena Armas> 12/28/22 1048 [facility] Work Phone: Progress note Author Carla Hagan [facility] December 29, 2022 10:00am Note Date/Time December 29, 2022 10:0 0am [facility] ENTER [address] [place] [address] Hospitalist Progress Note Signed Patient: Gera Perdue MR#: [id number] : 1945 Acct:[id number] Age/Sex: 77 / F Adm Date: 3 Loc: 4N Room: [address] [place] [address] Type: ADM IN Attending Dr: Carla Hagan [...] place, time and person. Morbidly obese HEENT: [place] conjunctiva and NL buccal mucosa Neck: Supple, [...] signed by Carla Hagan MD> 12/29/22 1000 [facility] Work Phone: Progress note Author Carla Hagan [facility] December 30, 2022 9:53am Note Date/Time December 30, 2022 9:53 am [facility] ENTER [address] [place] [address] Hospitalist Progress Note Signed Patient: Gera Perdue MR#: [id number] : 1945 Acct:[id number] Age/Sex: 77 / F Adm Date: 3 Loc: 4N Room: [id number] Type: ADM IN Attending Dr: Carla Hagan [...] place, time and person. Morbidly obese HEENT: [place] conjunctiva and NL buccal mucosa Neck: Supple, [...] anemia Plan is to discharge patient to halfway unit for short period of time for [...] signed by Carla Hagan MD> 12/30/22 0953 [facility] Work Phone: Progress note Author Jolanta Mckenzie [facility] July 11, 2023 12:47pm Note Date/Time July 11, 2023 10:10am [facility] ENTER [address] [place] [address] Hospitalist Progress Note Signed with Ling Patient: Gera Perdue MR#: [id number] : 1945 Acct:[id number] Age/Sex: 77 / F Adm Date: 3 Loc: Room: [address] [place] [address] Type: ADM IN Attending Dr: Jolanta Mckenzie [...] Dose Route Start Last Admin Trade Name Sanjyaq PRN Reason Stop Dose Admin Acetaminophen 1,000 [...] 1,000 Ml IV 07/09/24 13:59 75 mls/hr .[id number] JERILYN Administration Ceftriaxone Sodium 1 gm in [...] We will start on decreased dose of beta-juan diego. Continue to hold lisinopril and Lasix for 1 more day. Renal function improving. Consult PT/OT. Documented By: Bhavesh Cristobal MD, RES 07/11/23 094 9 Signed By: <Electronically signed by RES Bhavesh Cristobal> 07/11/23 1010 <Electronically signed by Jolanta Mckenzie MD> 07/11/23 1246 [facility] Work Phone: Progress note Author Jolanta Mckenzie [facility] July 12, 2023 3:00pm Note Date/Time July 12, 2023 2:16pm [facility] ENTER [address] [place] [address] Hospitalist Progress Note Signed with Addenda Patient: Gera Perdue MR#: [id number] : 1945 Acct:[id number] Age/Sex: 77 / F Adm Date: 3 Loc: Room: [address] [place] [address] Type: ADM IN Attending Dr: Jolanta Mckenzie [...] and switch to oral prednisone. PT recommended halfway facility which patient is refusing with plan [...] 1,000 Ml IV 07/09/24 13:59 75 mls/hr .[id number] JERILYN Administration Ceftriaxone Sodium 1 gm in [...] 09:00 07/12/23 08:15 Pantoprazole [address] LEES 07/10/24 08:59 40 mg DAILY JERILYN Administration [...] We will start on decreased dose of beta-juan diego. Continue steroids and bronchodilators for COPD exacerbation. [...] signed by Jolanta Mckenzie MD> 07/12/23 1457 [facility] Work Phone: Progress note Author Jolanta Mckenzie [facility] July 13, 2023 1:59pm Note Date/Time July 13, 2023 10:40am [facility] ENTER [address] [place] [address] Hospitalist Progress Note Signed with Ling Patient: Gera Perdue MR#: [id number] : 1945 Acct:[id number] Age/Sex: 77 / F Adm Date: 3 Loc: Room: [address] [place] [address] Type: ADM IN Attending Dr: Jolanta Mckenzie [...] but patient also on steroid. Discussed regarding halfway facility she has not decided yet. Give [...] We will continue on decreased dose of beta-juan diego. Continue steroids and bronchodilators for COPD exacerbation. [...] signed by Jolanta Mckenzie MD> 07/13/23 1356 [facility] Work Phone: Progress note No data available for this section [facility] Reason for referral (narrative)* Consultation (Routine) - Pending Review Specialty Diagnoses / Procedures Referred By Contvianney t Referred To Contact Pain Medicine Diagnoses Neural foraminal stenosis of lumbosacral spine Procedures SD OFFICE/OUTPATIENT NEW HIGH MDM 60 MINUTES Kiran Gutierrez, BENCH PRESS OPERATOR [address] [place] [address] Prasad Ambrosio MD [address] [place] [address] Referral ID Status Reason Start Date Expiration Date Visits Requested Visits Authorized [id number] Pending Review Specialty Services Required 06/22/2024 12/19/2024 1 1 ERIC Phillips for referral (narrative)* Consultation (Routine) - Pending Review Specialty Diagnoses / Procedures Referred By Susanne russell Referred To Contact Pulmonary Medicine Diagnoses Chronic respiratory failure with hypoxia, on home O2 therapy ([facility]) Former cigarette smoker Abnormal CT of the chest Angela Belcher APRN-CNP [address] [facility] [address] [place] [address] Varun Arroyo MD [address] [facility] [address] [place] [address] Referral ID Status Reason Start Date Expiration Date Visits Requested Visits Authorized [id number] Pending Review Specialty Services Required 03/17/2024 03/17/2025 1 1 [facility] Summary Purpose Family History Relationship Condition Age [...] Documents on File Type Date Recorded Patient Sales Ambassador Expl anation Advance Directives and Living Will Power of Bowling Ball Patcher Latest Code Status on File Code Status Date Activated Date Inactivated Comments Full Code 08/02/2019 12:07 AM Advance Directive Response Recorded Date/ Time Advance Directives Yes May 13 2:57pm Advance Directive Response Recorded Date/ Time Advance Directives Yes May 13 1:57pm Documents on File Type Date Recorded Patient Sales Ambassador Expl anation DNR Physician Order 10/29/2023 8:25 AM Durable Power of Bowling Ball Patcher 10/29/2023 6:51 AM Date Activated Date Inactivated Comments 02/19/2024 6:21 PM 02/25/2024 8:07 PM Date Activated Date Inactivated Comments 10/11/2023 11:48 AM 10/23/2023 1:09 PM Date Activated Date Inactivated Comments 10/05/2023 8:00 PM 10/11/2023 11:48 AM Latest Code Status on File Code Status Date Activated Date Inactivated Comments DNR Comfort Care Arrest (DNR -CCA) [place] 10/11/2023 11:48 AM 10/23/2023 1:09 PM Code Status History Code Status Date Activated Date Inactivated Comments Full Code 10/05/2023 8:00 PM 10/11/2023 11:48 AM Documents on File Type Date Recorded Patient Sales Ambassador Expl anation DNR Physician Order 10/29/2023 8:25 AM Durable Power of Bowling Ball Patcher 10/29/2023 6:51 AM Date Activated Date Inactivated Comments 02/19/2024 6:21 PM 02/25/2024 8:07 PM Date Activated Date Inactivated Comments 10/11/2023 11:48 AM 10/23/2023 1:09 PM Date Activated Date Inactivated Comments 10/05/2023 8:00 PM 10/11/2023 11:48 AM Hospital Course * Ellen Gonzalez MD - 08/04/2019 1:39 PM EDT [facility] IN-PATIENT SERVICE [facility] Discharge Summary Patient ID: Gera Perdue : 1945 ACCOUNT: [id number] Patient's PCP: Physician Generic (Inactive) Admit Date: [...] Assisted Dressing Assisted Toileting Assisted Feeding Independent Physician Relations Manager Independent Med Delivery whole Wound Care Documentation [...] applicable) Name: Address: Dialysis Schedule: Phone: Fax: Wound Care Physician/Telecommunications Analyst signature: {Esignature:[id number]} PHYSICIAN SECTION Prognosis: Good Condition at Discharge: [...] sent through Care Everywhere. * Low-Fiber Diet (Romanian) documented in this encounter History of Present Illness * Ellen Gonzalez MD - 08/04/2019 10:03 AM EDT [facility] IN-PATIENT SERVICE [facility] Progress Note 08/04/2019 10:03 AM Name: Gera Perdue Acct: [id number] Room[facility] Day: 3 Admit Date: 08/01/2019 11:58 PM PCP: Physician Berenice (Inactive) Code Status: Full Code Subjective: C/C: [...] 1213 ml Labs: Hematology: Recent Labs 08/02/19 0608/03/19 0505 08/04/19 0550 WBC 9.3 7.8 7.5 RBC 4.19 4.10 3.58* HGB 11.7* 11.4* 9.9* HCT 36.3 37.6 32.7* MCV 86.6 91.7 91.3 MCH 27.9 27.8 27.7 MCHC 32.2 30.3 30.3 RDW 15.6* 15.5* 15.0* PLT 215 199 184 MPV 9.3 9.4 9.1 Chemistry: Recent Labs 08/02/1913 08/02/19 0943 08/03/19 0505 NA -- 140 [...] - 08/03/2019 12:24 PM EDT [facility] IN-PATIENT SERVICE [facility] Progress Note 08/03/2019 12:24 PM Name: Gera Perdue Acct: [id number] Room: [facility]/0236-01 Day: 2 Admit Date: 08/01/2019 11:58 PM [...] Attending Note I have reviewed the above [facility] resident progress note and I [...] 08/02/2019 9:16 AM EDT Attempted to call [facility] pharmacy in [place] to retrieve home medication list, but pharmacy does not open until 10:00 am. Aeronautical Design Engineer will attempt again after this time. * [...] Coronary atherosclerosis of unspecified type of vessel, [place] or graft Mixed hyperlipidemia Essential hypertension Unspecified [...] rt knee swollen, sen t by dr FALL Chief Complaint rt knee swollen, sen t [...] chest 2 views Jenna Engle MD [address] [facility] [address] [place] [address] Referral ID Status Reason Start Date Expiration Date Visits Requested Visits Authorized [id number] Authorized Perform Procedure 01/06/2024 01/05/2025 1 1 Specialty Diagnoses / Procedures Referred By Contac t Referred To Contact Diagnoses Shortness of breath Procedures ECG 12 Lead Jenna Engle MD [address] [facility] [address] [place] [address] Referral ID Status Reason Start Date Expiration Date V isits Requested Visits Authorized [id number] Authorized 01/06/2024 01/05/2025 1 1 Specialty Diagnoses / Procedures Referred By Contac t Referred To Contact Cardiology Diagnoses Shortness of breath Procedures Follow Up In Cardiology Jenna Engle MD [address] [facility] [address] [place] [address] Jenna Engle MD [address] [facility] [address] [place] [address] Referral ID Status Reason Start Date Expiration Date V isits Requested Visits Authorized [id number] Authorized 01/06/2024 01/05/2025 1 1 Specialty Diagnoses / Procedures Referred By Contac t Referred To Contact Cardiology Diagnoses Shortness of breath Procedures Transthoracic Echo Complete SD ECHO TTHRC R-T 2D W/WOM-MODE COMPL SPEC&COLR D Jenna Engle MD [address] [facility] [address] [place] [address] Referral ID Status Reason Start Date Expiration Date Visits Requested Visits Authorized [id number] Pending Review Perform Procedure 01/06/2024 01/05/2025 1 1 Specialty Diagnoses / Procedures Referred By Contac t Referred To 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 Diagnoses Essential hypertension (CMS/HCC) Stage 3a chronic kidney disease (HCC) (CMS/HCC) Sepsis with acute renal failure without septic shock, due to unspecified organism, unspecified acute renal failure type (CMS/HCC) Medication management Procedures SD OFFICE/OUTPATIENT NEW HIGH MDM 60 MINUTES Lilliam Cheek BENCH PRESS OPERATOR [address] [place] [address] [facility] [address] [place] [address] Referral ID Status Reason Start Date Expiration Date Visits Requested Visits Authorized [id number] Pending Review Specialty Services Required 12/09/2023 06/06/2024 1 1 Specialty Diagnoses / Procedures Referred By Contac t Referred To Contact Home Health Services Diagnoses SOB (shortness of breath) Wheezing Urinary tract bacterial infections Essential hypertension ([facility]/HCC) Mixed hyperlipidemia ([facility]/HCC) Stage 3a chronic kidney disease (HCC) ([facility]) Sepsis with acute renal failure without septic shock, due to unspecified organism, unspecified acute renal failure type ([facility]) Medication management Lilliam Cheek, BENCH PRESS OPERATOR [address] [place] [address] Referral ID Status Reason Start Date Expiration Date Visits Requested Visits Authorized [id number] Pending Review Specialty Services Required 12/09/2023 02/07/[phone] Specialty Diagnoses / Procedures Referred By Contac t Referred To Contact Obstetrics and Gynecology Diagnoses Urinary tract bacterial infections Female bladder prolapse Procedures SD OFFICE/OUTPATIENT NEW HIGH MDM 60 MINUTES Lilliam Cheek, BENCH PRESS OPERATOR [address] [place] [address] Cee Cordero DO [address] [place] [address] Referral ID Status Reason Start Date Expiration Date Visits Requested Visits Authorized [id number] Pending Review Specialty Services Required 12/09/2023 06/06/2024 1 1 Additional Source Comments INFORMATION SOURCE (unrecogn ized section and content) DATE CREATED AUTHOR 07/12/2018 [facility] DATE CREATED AUTHOR AUTHOR'S ORGANIZ ATION 08/29/2019 [facility] DATE CREATED AUTHOR AUTHOR'S ORGANIZ ATION 12/24/2020 [facility] DATE CREATED AUTHOR AUTHOR'S ORGANIZ ATION 05/01/2022 [facility] dical Specialist DATE CREATED AUTHOR AUTHOR'S ORGANIZ ATION 01/02/2023 [facility] [place] DATE CREATED AUTHOR AUTHOR'S ORGANIZ ATION 01/21/2023 [facility] DATE CREATED AUTHOR AUTHOR'S ORGANIZ ATION 02/16/2024 [facility] DATE CREATED AUTHOR AUTHOR'S ORGANIZ ATION 02/26/2024 [facility] DATE CREATED AUTHOR AUTHOR'S ORGANIZ ATION 04/23/2024 [facility] DATE CREATED AUTHOR AUTHOR'S ORGANIZ ATION 05/02/2024 [facility] DATE CREATED AUTHOR AUTHOR'S ORGANIZ ATION 07/04/2024 [facility] dical Specialists EPIC DATE CREATED AUTHOR AUTHOR'S ORGANIZ ATION 09/27/2024 [facility] DATE CREATED AUTHOR AUTHOR'S ORGANIZ ATION 10/09/2024 [facility] Reason for Visit (unrecogniz ed section and content) Status Reason Specialty Diagnoses / Procedures Referre d By Contact Referred To Contact Diagnoses Small bowel obstruction (HCC) Verenice Shea MD [address] [address] [facility] Reason Comments Hospital Follow-up Reason Comments New Patient Visit Old [facility] patient Specialty Diagnoses / Procedures Referred By Susanne russell Referred To Contact Cardiology Diagnoses Shortness of breath Procedures Transthoracic Echo Complete SD ECHO TTHRC R-T 2D W/WOM-MODE COMPL SPEC&COLR D Jenna Engle MD [address] [facility] [address] [place] [address] Referral ID Status Reason Start Date Expiration Date Visits Requested Visits Authorized [id number] Authorized Perform Procedure 01/06/2024 01/05/2025 1 1 Reason Comments Follow-up 1m echo results Specialty Diagnoses / Procedures Referred By Susanne russell Referred To Contact Cardiology Diagnoses Shortness of breath Procedures Follow Up In Cardiology Jenna Engle MD [address] [place] [address] Jenna Engle MD [address] [place] [address] Referral ID Status Reason Start Date Expiration Date V isits Requested Visits Authorized [id number] Authorized 01/06/2024 01/05/2025 1 1 Reason Comments [...] Date Comments Neuro Appt 10/30/2023 Reason Comments Follow-up Care Teams (unrecognized sec tion and content) Team Status: Inactive Member Role Status Dates Gustavo Salas , Primary Care Provider Active Hilario Yeung , DO Emergency Provider Active Team Status: Active Member Role Status Katelyn Salas DO Primary Care Provider Active Team Status: Inactive Member Role Status Katelyn Salas DO Primary Care Provider Active Richard [...] Primary Care Provider Active Kadie Jones , [facility]- Emergency Provider Active Team Status: Active [...] Team Status: Inactive Member Role Status Katelyn Morrissey DO Emergency Provider Active Gustavo Salas DO Primary Care Provider Active Jesus Alberto Aquino MD Admit Provider, Attending Provider Active Wire Lather Relationship Specialty Start Date End Date Gustavo Salas DO [address] [place] [address] PCP - General Internal Medicine 12/09/23 Leah Burgos, LASHAY [address] [place] [address] Registered Nurse Internal Medicine 12/09/23 Wire Lather Relationship Specialty Start Date End Date Gustavo Salas DO [address] [place] [address] PCP - General Internal Medicine 01/06/24 Wire Lather Relationship Specialty Start Date End Date Gustavo Salas DO [address] [place] [address] PCP - General Internal Medicine 01/06/24 Wire Lather Relationship Specialty Start Date End Date Gustavo Salas DO [address] [place] [address] PCP - General Internal Medicine 01/06/24 Team Status: Inactive Member Role Status Dates Gustavo Salas DO Primary Care Provider Active Start: January 06, 2024 End: January 06, 2024 Jenna Engle MD Attending Provider Active Star t: January 06, 2024 End: January 06, 2024 Team Status: Active Member Role Status Dates Gustavo Salas DO Primary Care Provider Active Start: February 14, 2024 Kadie Jones [facility]- Emergency Provider Active Start: February 14, 2024 Lucho Grullon MD Admit Provider, Atte nding Provider Active Start: February 14, 2024 Team Status: Inactive Member Role Status Dates Gustavo Salas DO Primary Care Provider Active Start: February 14, 2024 End: February 17, 2024 [facility] Emergency Provider Active Start: February 14, 2024 End: February 17, 2024 Lucho Grullon MD Admit Provider Active Start: February 14, 2024 End: February 17, 2024 [place] Mckenzie MD Attending Provider Active Start: February 14, 2024 End: February 17, 2024 Team Status: Active Member Role Status Dates Gustavo Salas DO Primary Care Provider Active Start: February 14, 2024 [facility] Emergency Provider Active Start: February 14, 2024 Lucho Grullon MD Admit Provider, Atte nding Provider, Other Provider Active Start: February 14, 2024 Wire Lather Relationship Specialty Start Date End Date Gustavo Salas DO [address] [place] [address] PCP - General Internal Medicine 12/09/23 Gustavo Salas DO [address] [place] [address] PCP - [facility] 03/28/24 10/27/24 Wire Lather Relationship Specialty Start Date End Date Gustavo Salas DO [address] [place] [address] PCP - General Internal Medicine 12/09/23 Gustavo Salas DO [address] [place] [address] PCP - [facility] 03/28/24 10/27/24 Wire Lather Relationship Specialty Start Date End Date Gustavo Salas DO [address] [place] [address] PCP - General Internal Medicine 12/09/23 Gustavo Salas DO [address] [place] [address] PCP - [facility] 03/28/24 10/27/24 Wire Lather Relationship Specialty Start Date End Date Gustavo Salas DO [address] [place] [address] PCP - General Internal Medicine 12/09/23 Gustavo Salas DO [address] [place] [address] PCP - [facility] 03/28/24 10/27/24 Wire Lather Relationship Specialty Start Date End Date Gustavo Salas DO [address] [place] [address] PCP - General Internal Medicine 12/09/23 Wire Lather Relationship Specialty Start Date End Date Gustavo Salas DO [address] [place] [address] PCP - General Internal Medicine 12/09/23 Wire Lather Relationship Specialty Start Date End Date Gustavo Salas DO [address] [place] [address] PCP - General Internal Medicine 12/09/23 Wire Lather Relationship Specialty Start Date End Date Gustavo Salas DO [address] [place] [address] PCP - General Internal Medicine 12/09/23 Wire Lather Relationship Specialty Start Date End Date Gustavo Salas DO [address] [place] [address] PCP - General Internal Medicine 12/09/23 Gustavo Salas DO [address] [place] [address] PCP - [facility] 03/28/24 10/27/24 Wire Lather Relationship Specialty Start Date End Date Gustavo Salas DO [address] [place] [address] PCP - General Internal Medicine 12/09/23 Wire Lather Relationship Specialty Start Date End Date Gustavo Salas DO [address] [place] [address] PCP - General Internal Medicine 12/09/23 Wire Lather Relationship Specialty Start Date End Date Gustavo Salas DO [address] [place] [address] PCP - General Internal Medicine 02/19/24 Wire Lather Relationship Specialty Start Date End Date Gustavo Salas DO [address] [place] [address] PCP - General Internal Medicine 02/19/24 Wire Lather Relationship Specialty Start Date End Date Mely Camarillo APRN-[employer] [address] [place] [address] PCP - General Family Medicine 04/08/19 Wire Lather Relationship Specialty Start Date End Date Mely Camarillo APRN-[employer] [address] [place] [address] PCP - General Family Medicine 04/08/19 Wire Lather Relationship Specialty Start Date End Date Raffaelenehemias Mely Raza, JAY JAY-JIMMY [address] [place] [address] PCP - General Family Medicine 04/08/19 Wire Lather Relationship Specialty Start Date End Date Gustavo Salas DO [address] [place], [place] [id number] PCP - General Internal Medicine 12/09/23 Wire Lather Relationship Specialty Start Date End Date Gustavo Salas DO [address] [place] [address], [address] [place] [id number] PCP - General Internal Medicine 02/19/24 Goals (unrecognized section and content) Goals may [...] BE BASED ON THE PRIMARY CLINICAL RECORDS. [employer] provides no warranty or guarantee of the accuracy or completeness of information in this document.
[2024-12-13 16:09] LABS: Hematocrit 37.1 % (36.0-48.0); Hemoglobin 11.1 g/dL (12.0-16.0); Mean Corpuscular HGB Conc 29.9 g/dL (29.9-35.2); Mean Corpuscular Volume 86.9 fL (81.0-99.0); Mean Platelet Volume 8.3 fL (9.5-13.5); Platelet Count 308 10^3/uL (150-450); Red Blood Count 4.27 10^6/uL (4.20-5.40); Red Cell Distribution Width 18.1 % (11.0-15.0); White Blood Count 13.6 10^3/uL (4.0-11.0)
[2024-12-13 16:24] LABS: BUN Creatinine Ratio 4.5; Estimated GFR (African America >60 (>=60 mL/min/1.73m^2); Estimated GFR (Non-African Ame >60 (>=60 mL/min/1.73m^2); Glucose 90 mg/dL (74-106)
[2024-12-13 16:27] LABS: Influenza Virus A Antigen Negative; Influenza Virus B Antigen Negative; Internal Control Within Normal Limits; SARS-CoV-2 Ag NEGATIVE (NEGATIVE)
[2024-12-13 16:29] LABS: Basophils Abs Manual 0.13 10^3/uL (0.00-0.10); INR 1.05; Lymphocytes Absolute Manual 4.35 10^3/uL (1.20-3.80); Monocytes Absolute Manual 0.81 10^3/uL (0.30-0.80); Prothrombin Time 11.1 sec (9.0-11.6); Segmented Neut Absolute Manual 8.29 10^3/uL (1.4-6.5)
[2024-12-13 16:30] LABS: Anion Gap 3.3; Anisocytosis 1+; Calcium 9.2 mg/dL (8.5-10.1); Carbon Dioxide 36.9 mmol/L (21.0-32.0); Chloride 102 mmol/L (98-107); Potassium 3.2 mmol/L (3.5-5.1); Sodium 139 mmol/L (136-145)
[2024-12-13 17:14] LABS: D Dimer 1.63 mg/L FEU (<=0.59)
[2024-12-13] MEDS: MORPHINE SULFATE 2 MG/ML SYRINGE IV (17:16)
[2024-12-13 17:40] LABS: Bilirubin Urine NEGATIVE (NEGATIVE); Blood Urine NEGATIVE (NEGATIVE); Clarity Urine SL CLOUDY (CLEAR); Color Urine YELLOW (YELLOW); Glucose Urine UA NEGATIVE (NEGATIVE); Ketones Urine NEGATIVE (NEGATIVE); Leukocyte Esterase Urine TRACE (NEGATIVE); Nitrite Urine NEGATIVE (NEGATIVE); Protein Urine TRACE mg/dL (NEG/TRACE); Specific Gravity Urine >=1.030 (1.005-1.025); Urobilinogen Urine 0.2 EU/dL (0.2-1.0)
[2024-12-13 17:52] LABS: Bacteria Urine TRACE #/HPF (NONE SEEN); Calcium Oxalate Crystals Urine RARE; Cast Seen? SEEN #/LPF (NONE SEEN); Crystals Seen? Seen #/HPF (None Seen); Mucus Urine LARGE (NONE SEEN); Squamous Epithelial Cell Urine FEW #/LPF (NONE/RARE); WBC Urine 20-50 #/HPF (NONE SEEN)
[2024-12-13 17:53] LABS: Hyaline Casts Urine FEW; Urine Culture Indicated YES-FRMC
[2024-12-13] MEDS: CEFAZOLIN SODIUM/DEXTROSE,ISO 1 GM/50 ML PREMIX IV (18:32)
[2024-12-13] MEDS: ENOXAPARIN SODIUM 80 MG/0.8 ML SYRINGE 90 MG SUBQ (18:32)
--- OUTSIDE RECORDS SUMMARY | 2024-12-13 19:37 | XMS_ITS | CCD ---
Author Organization [facility] Care Team Providers Care Hot Blast Worker Name Role Phone Mely Camarillo Unavailable Unavailable [...] Care Provider DO Richard Pearson Emergency Provider [phone] ETHAN Morrissey Emergency Provider [phone] MD Jolanta Mckenzie Admit Provider MD Jolanta Mckenzie Attending Provider MD Jesus Alberto Aquino Attending Provider Dr. Charlie Mondragon II Attending Unavailable LAKSHMIPATHY ., NARENDRANATH Admitting Sahra vailable LAKSHMIPATHY ., NARENDRANATH Attending Sahra vailable DR SVITLANA HAMMOND Primary Care Unavailable DO Gustavo Salas Primary Care Provider Karen HAND TRIMMER- Kadie Beckford Emergency Provider DO Marshall Dominguez Emergency Provider MD Jolanta Mckenzie Admit Provider MD Jolanta Mckenzie Attending Provider DO Maury Morrissey Emergency Provider MD Jesus Alberto Aquino Admit Provider [phone] MD Jesus Alberto Aquino Attending Provider [phone] Gustavo Salas DO Primary Care Provider Aubrey METZ, Leah Unavailable [phone] Gustavo Salas DO Primary Care Provider GUSTAVO SALAS Primary Care Physician Unavail able DO Gustavo Salas Primary Care Provider MD Jenna Engle Attending Provider Karen [facility] Kadie Beckford Emergency Provider MD Lucho Grullon Admit Provider [phone] MD Lucho Grullon Attending Provider JENNA ENGLE Attending Unavailable GUSTAVO SALAS Primary [...] Drug Allergy 3 vomiting [facility] (20 sources) Aspirin; Translations: [aspirin] Drug Allergy 9 Other, Nausea/vomiting , Nausea And Vomiting, Other (See Comments) [facility] (19 sources) Acetaminophen / oxyCODONE; Translations: [OXYCODONE-ACETAM INOPHEN] Drug Allergy 3 GI intolerance [facility] (4 sources) Ibuprofen; Translations: [IBUPROFEN] Drug Allergy 4 Nausea/vomiting [facility] (18 sources) Acetaminophen; Translations: [acetaminophen] Drug Allergy 4 GI intolerance [facility] (20 sources) oxyCODONE; Translations: [OXYCODONE] Drug Allergy 1 GI intolerance, Vomiting [facility] (1 source) Acetaminophen / oxyCODONE; Translations: [acetaminophen-ox ycodone] Drug Allergy [facility] Repository Medications Current Medications Medication [...] needed Orally every 8 hrs PRN Active [id number] 200 actuat albuterol 0.09 mg/actuat metered dose [...] day(s), # 14 cap(s), Refills(s) 0, Pharmacy: [id number], 170, cm, 01/30/24 13:39:00 [...] Active Start: 12-17-2023 take 1 capsule by [facility] once in the morning cholecalciferol (Vitamin D-3) 50 MCG (1999 UT) capsule Indications: Vitamin D deficiency Take 1 capsule (50 mcg) by mouth in the morning. 90 capsule 3 12/17/2023 Active Start: 09-21-2020 take 2000 [IU] by [facility] once daily Cholecalciferol (Vitamin D3) Active 2000 UNIT PO Daily September 21, 2020 1:00am Start: 08-31-2020 End: 09-21-2020 take 50 ug by mouth once daily Cholecalciferol (Vitami n D3) Discontinued 50 MCG PO Daily August 31, 2020 1:00am September 21, 2020 1:41pm take 1 capsule by [facility] in the morning cholecalciferol, vitamin D3, 2,000 units capsule Take 1 capsule (2,000 Units total) by mouth in the morning. Active take 1 tablet by [facility] twice daily cholecalciferol, vitamin D3, 75 [...] take 1 puff(s) by inhalation once daily wuvpjjalxuf-yovkicnjn-qxpulnin (TRELEGY ELLIPTA) 100-62.5-25 mcg blister with device Inhale 1 puff once daily. 0 04/01/2023 Active Start: 04-01-2023 End: 12-09-2023 take 1 puff(s) by inhalation in the morning Tarxylhqgcl-Gyttyvett-Mhzegp (Trelegy Ellipta) 100-62.5-25 MCG/ACT aerosol powder Indications: Panlobular emphysema (CMS/HCC) Inhale 1 puff in the morning. 1 each 04/01/2023 12/09/2023 Discontinued (Other) Start: 02-23-2020 End: 04-25-2020 Qihxtismgbc-Ramztppbt-Ajxxvs er (Trelegy Ellipta) 100-62.5-25 mcg blister with device Discontinued 1 PUFF INHALATION As Directed February 22, 2020 11:00pm April 25, 2020 5:58pm Start: 02-23-2020 End: 04-25-2020 Fjcexynqdoq-Dsdooahvw-Wppurw er (Trelegy Ellipta) 100-62.5-25 mcg blister with device Discontinued 1 PUFF INHALATION As Directed February 23, 2020 12:00am April 25, 2020 6:58pm take 1 puff(s) by inhalation once daily Trelegy Ellipta 100-62.5-25 MCG/INH 1 pu ff Inhalation Once a day for 30 days Active Kbrkhbmwzig-Lizareibu-Rcaldd (Trelegy Ellipta) 200-62.5-25 MCG/ACT aerosol powder (13 sources) take 1 puff(s) by inhalation once daily Tqagqgyorlk-Ntayoipsi-Kxtcbe (Trelegy Ellipta) 200-62.5-25 MCG/ACT aerosol powder Inhale [...] MG 24 hr tablet Indications: 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 Apply to abdominal folds and breast. . 06/17/2023 Active Start: 06-17-2023 nystatin (Myco statin) 594605 UNIT/GM powder Indications: Rash APPLY TOPICALLY TO [...] September 21, 2020 1:38pm polyethylene glycol 3350 18022 mg powder for oral solution (5 sources) [...] hours as needed for pain HYDROcodone-acetami nophen (Steptoe) 5-325 MG tablet TAKE 1 TABLET BY MOUTH EVERY 6 HOURS NEEDED FOR PAIN FOR 3 DAYS 10/02/2024 10/06/2024 Discontinued (Ineffective) Start: 01-15-2020 End: 02-23-2020 take 1 tablet by mouth every four to six hours Hydrocodone-Acetaminophen (Steptoe) 5-325 mg tablet Discontinued 1 TAB PO EVERY 4-6 HOURS 10 January 15, 2020 February 23, 2020 2:44pm Start: 08-02-2019 HYDROcodone-ac etaminophen (NORCO) 5-325 MG per tablet 1 tablet Start: 01-02-2019 End: 01-12-2019 take 1 tablet by mouth every six hours Hydrocodone-Acetaminophen (Steptoe) 5-325 mg tablet Discontinued 1 TAB PO Q6H 20 January 02, 2019 January 12, 2019 6:44am Start: 06-22-2018 End: 08-01-2019 take 1 tablet by mouth every four to six hours Hydrocodone-Acetaminophen (Steptoe) 5-325 mg tablet Discontinued 1 TAB PO [...] D2 Compound Start: 04-28-2020 End: 12-26-2022 take 10320 [IU] by mouth every month Ergocalciferol (Vitamin D2) Discontinued 47646 UNIT PO every month April 28, 2020 [...] application Externally Twice a day prn Active Rnhqjrqmqzow-Levyeojz-Ydsfgm (Multivitamin 50 Plus) Tablet (10 sources) Start: 02-23-2020 End: 04-25-2020 Zrrexepfjqpa-Glgevufh-Ermyym (Multivitamin 50 Plus) Tablet Discontinued 1 TAB PO Daily February 22, 2020 11:00pm April 25, 2020 5:58pm Start: 02-23-2020 End: 04-25-2020 Hadfjwrlajiy-Ltoheqjd-Vudwob (Multivitamin 50 Plus) Tablet Discontinued 1 TAB [...] DOSES CALL 911 Sublingual as needed Active Crescent-3 Fatty Acids-Fish Oil (Fish Oil) 300-1,000 mg capsule (10 sources) Start: 08-01-2019 End: 02-23-2020 take 1 capsule by mouth once daily Crescent-3 Fatty Acids-Fish Oil (Fish Oil) 300-1,000 mg capsule Discontinued 1000 MG PO Daily July 31, 2019 11:00pm February 23, 2020 3:42pm Start: 08-01-2019 End: 02-23-2020 take 1 capsule by mouth once daily Crescent-3 Fatty Acids-Fish Oil (Fish Oil) 300-1,000 mg [...] aftercare (15 sources) 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; Translations: [manager terminal (current) use of anticoagulants] Onset: 9 Resolved: [...] identified Cx Nom (U) Urine Culture, Routine [facility] Bacteria identified Cx Nom (U) Greater than 2 organisms recovered, none predominant. Please submit [facility] Bacteria identified Cx Nom (U) another sample if clinically indicated. [facility] Bacteria identified Cx Nom (U) Greater than 100,000 colony forming units per mL [facility] Bacteria identified Cx Nom (U) Performed at: [facility] Bacteria identified Cx Nom (U) [address], [place] [id number] [facility] Bacteria identified Cx Nom (U) Shipwright Helper: Jamil Giraldo PhD, Phone: [phone] [facility] URINE CULTURE, ROUTINEon Bacteria identified Cx Nom (U) Urine Culture, Routine [facility] Bacteria identified Cx Nom (U) Mixed urogenital kimberly [facility] Bacteria identified Cx Nom (U) 10,000-25,000 colony forming units per mL [facility] Bacteria identified Cx Nom (U) Performed at: [facility] Bacteria identified Cx Nom (U) [address], [place] [id number] [facility] Bacteria identified Cx Nom (U) Shipwright Helper: Jamil Giraldo PhD, Phone: [phone] [facility] XR CHEST 2 VIEWSon [...] detection for pulmonary nodules was performed utilizing TableNOWo.vLex software. FINDINGS: No pleural or pericardial effusion. [...] Blake MD on 05/01/2024 9:36 AM Normal [facility] BLOOD UREA NITROGENon 2023 Urea nitrogen [Mass/Vol] 20 mg/dL Normal 5-27 [facility] Comment on above: Performed By: #### C SOWMYA, BMP #### [facility] ([id number]) [address] [place] [address] 38329 CBC AND AUTO DIFFon 04-13-20 24 ABSOLUTE BASOPHIL 0.0 X10E9/L Normal 0.0-0.2 [facility] Comment on above: Performed By: #### C SOWMYA, BMP #### [facility] ([id number]) [address] [place] [address] 38628 ABSOLUTE NEUTROPHIL 7.1 X10E9/L High 1.5-6.6 [facility] Comment on above: Performed By: #### C BCA, BMP #### [facility] ([id number]) [address] [place] [address] 61851 Basophils/100 WBC (Bld) 0.4 % Normal [facility] Comment on above: Performed By: #### C BCA, BMP #### [facility] ([id number]) [address] [place] [address] 11949 Eosinophils (Bld) [#/Vol] 0.3 10*3/uL Normal 0.0-0.4 [facility] Comment on above: Performed By: #### C SOWMYA, BMP #### [facility] ([id number]) [address] [place] [address] 38162 Eosinophils/100 WBC (Bld) 2.8 % Normal [facility] Comment on above: Performed By: #### C SOWMYA, BMP #### [facility] ([id number]) [address] [place] [address] 32809 Erythrocyte distribution width (RBC) [Ratio] 19.0 % High 11.5-15.0 [facility] Comment on above: Performed By: #### C SOWMYA, BMP #### [facility] ([id number]) [address] [place] [address] 12022 Hematocrit (Bld) [Volume fraction] 27.8 % Low 35-47 [facility] Comment on above: Performed By: #### C SOWMYA, BMP #### [facility] ([id number]) [address] [place] [address] 75431 Hemoglobin (Bld) [Mass/Vol] 9.0 g/dL Low 11.7-15.5 [facility] Comment on above: Performed By: #### C SOWMYA, BMP #### [facility] ([id number]) [address] [place] [address] 62603 Lymphocytes (Bld) [#/Vol] 3.2 10*3/uL Normal 1.0-3.5 [facility] Comment on above: Performed By: #### C SOWMYA, BMP #### [facility] ([id number]) [address] [place] [address] 39371 Lymphocytes/100 WBC (Bld) 27.2 % Normal [facility] Comment on above: Performed By: #### C SOWMYA, BMP #### [facility] ([id number]) [address] [place] [address] 78945 MCH (RBC) [Entitic mass] 24.5 pg Low 27-34 [facility] Comment on above: Performed By: #### C SOWMYA, BMP #### [facility] ([id number]) [address] [place] [address] 02177 MCHC (RBC) [Mass/Vol] 32.3 g/dL Normal 32-36 [facility] Comment on above: Performed By: #### C SOWMYA, BMP #### [facility] ([id number]) [address] [place] [address] 67700 MCV (RBC) [Entitic vol] 76 fL Low 80-100 [facility] Comment on above: Performed By: #### C SOWMYA, BMP #### [facility] ([id number]) [address] [place] [address] 88202 Monocytes (Bld) [#/Vol] 1.0 10*3/uL High 0-0.9 [facility] Comment on above: Performed By: #### C SOWMYA, BMP #### [facility] ([id number]) [address] [place] [address] 33800 Monocytes/100 WBC (Bld) 8.4 % Normal [facility] Comment on above: Performed By: #### C SOWMYA, BMP #### [facility] ([id number]) [address] [place] [address] 68216 Neutrophils/100 WBC (Bld) 61.2 % Normal [facility] Comment on above: Performed By: #### C SOWMYA, BMP #### [facility] ([id number]) [address] [place] [address] [place] [address] Platelet mean volume (Bld) [Entitic vol] 6.8 fL Low 7-12 [facility] Comment on above: Performed By: #### C SOWMYA, BMP #### [facility] ([id number]) [address] [place] [address] 93289 Platelets (Bld) [#/Vol] 353 10*3/uL Normal 150-450 [facility] Comment on above: Performed By: #### C SOWMYA, BMP #### [facility] ([id number]) [address] [place] [address] 45375 RBC COUNT 3.67 X10E12/L Low 3.80-5.20 [facility] Comment on above: Performed By: #### C SOWMYA, BMP #### [facility] ([id number]) [address] [place] [address] 77554 WBC (Bld) [#/Vol] 11.7 10*3/uL High 4.0-11.0 [facility] Comment on above: Performed By: #### C SOWMYA, BMP #### [facility] ([id number]) [address] [place] [address] 38365 CREATININEon 04-13-2024 Creatinine [Mass/Vol] 1.16 mg/dL High 0.40-1.00 [facility] Comment on above: Result Comment: METH OD TRACEABLE TO IDMS STANDARD Performed By: #### C SOWMYA, BMP #### [facility] ([id number]) [address] [place] [address] 32603 GFR/1.73 sq M.predicted among non-blacks MDRD (S/P/Bld) [Vol rate/Area] 48 mL/min/{1.73_m2} Low >59 [facility] Comment on above: Result Comment: Reported eGFR is based on the CKD-EPI 2020 equation that does not use a race coefficient. Performed By: #### C SOWMYA, BMP #### [facility] ([id number]) [address] [place] [address] 17967 ELECTROLYTESon 04-13-2024 Anion gap [Moles/Vol] 4 mmol/L Low 5-15 [facility] Comment on above: Performed By: #### C BCA, BMP #### [facility] ([id number]) [address] [place] [address] 63797 Chloride [Moles/Vol] 106 mmol/L Normal 98-109 [facility] Comment on above: Performed By: #### C BCA, BMP #### [facility] ([id number]) [address] [place] [address] 62785 CO2 [Moles/Vol] 25 mmol/L Normal 22-32 [facility] Comment on above: Performed By: #### C BCA, BMP #### [facility] ([id number]) [address] [place] [address] 00518 Potassium [Moles/Vol] 4.0 mmol/L Normal 3.5-5.0 [facility] Comment on above: Performed By: #### C BCA, BMP #### [facility] ([id number]) [address] [place] [address] 41996 Sodium [Moles/Vol] 135 mmol/L Normal 134-146 [facility] Comment on above: Performed By: #### C BCA, BMP #### [facility] ([id number]) [address] [place] [address] 79389 BLOOD UREA NITROGENon 2023 Urea nitrogen [Mass/Vol] 19 mg/dL Normal 5-27 [facility] Comment on above: Performed By: #### C BCA, BMP #### [facility] ([id number]) [address] [place] [address] 64345 CBC AND AUTO DIFFon 04-08-20 24 ABSOLUTE BASOPHIL 0.1 X10E9/L Normal 0.0-0.2 [facility] Comment on above: Performed By: #### C BCA, BMP #### [facility] ([id number]) [address] [place] [address] 90969 ABSOLUTE NEUTROPHIL 4.2 X10E9/L Normal 1.5-6.6 [facility] Comment on above: Performed By: #### C SOWMYA, BMP #### [facility] ([id number]) [address] [place] [address] 09350 Basophils/100 WBC (Bld) 1.1 % Normal [facility] Comment on above: Performed By: #### C SOWMYA, BMP #### [facility] ([id number]) [address] [place] [address] 47996 Eosinophils (Bld) [#/Vol] 0.4 10*3/uL Normal 0.0-0.4 [facility] Comment on above: Performed By: #### C SOWMYA, BMP #### [facility] ([id number]) [address] [place] [address] 42287 Eosinophils/100 WBC (Bld) 4.0 % Normal [facility] Comment on above: Performed By: #### C SOWMYA, BMP #### [facility] ([id number]) [address] [place] [address] 42701 Erythrocyte distribution width (RBC) [Ratio] 18.5 % High 11.5-15.0 [facility] Comment on above: Performed By: #### C SOWMYA, BMP #### [facility] ([id number]) [address] [place] [address] 44217 Hematocrit (Bld) [Volume fraction] 28.4 % Low 35-47 [facility] Comment on above: Performed By: #### C SOWMYA, BMP #### [facility] ([id number]) [address] [place] [address] 83410 Hemoglobin (Bld) [Mass/Vol] 9.4 g/dL Low 11.7-15.5 [facility] Comment on above: Performed By: #### C SOWMYA, BMP #### [facility] ([id number]) [address] [place] [address] 71489 Lymphocytes (Bld) [#/Vol] 3.3 10*3/uL Normal 1.0-3.5 [facility] Comment on above: Performed By: #### C SOWMYA, BMP #### [facility] ([id number]) [address] [place] [address] 71639 Lymphocytes/100 WBC (Bld) 37.1 % Normal [facility] Comment on above: Performed By: #### C SOWMYA, BMP #### [facility] ([id number]) [address] [place] [address] 56822 MCH (RBC) [Entitic mass] 24.9 pg Low 27-34 [facility] Comment on above: Performed By: #### C SOWMYA, BMP #### [facility] ([id number]) [address] [place] [address] 78165 MCHC (RBC) [Mass/Vol] 33.0 g/dL Normal 32-36 [facility] Comment on above: Performed By: #### C SOWMYA, BMP #### [facility] ([id number]) [address] [place] [address] 38469 MCV (RBC) [Entitic vol] 76 fL Low 80-100 [facility] Comment on above: Performed By: #### C SOWMYA, BMP #### [facility] ([id number]) [address] [place] [address] 45200 Monocytes (Bld) [#/Vol] 1.0 10*3/uL High 0-0.9 [facility] Comment on above: Performed By: #### C SOWMYA, BMP #### [facility] ([id number]) [address] [place] [address] 26542 Monocytes/100 WBC (Bld) 10.9 % Normal [facility] Comment on above: Performed By: #### C SOWMYA, BMP #### [facility] ([id number]) [address] [place] [address] 55770 Neutrophils/100 WBC (Bld) 46.9 % Normal [facility] Comment on above: Performed By: #### C SOWMYA, BMP #### [facility] ([id number]) [address] [place] [address] 50069 Platelet mean volume (Bld) [Entitic vol] 6.7 fL Low 7-12 [facility] Comment on above: Performed By: #### C SOWMYA, BMP #### [facility] ([id number]) [address] [place] [address] 28910 Platelets (Bld) [#/Vol] 367 10*3/uL Normal 150-450 [facility] Comment on above: Performed By: #### C SOWMYA, BMP #### [facility] ([id number]) [address] [place] [address] 28859 RBC COUNT 3.76 X10E12/L Low 3.80-5.20 [facility] Comment on above: Performed By: #### C SOWMYA, BMP #### [facility] ([id number]) [address] [place] [address] 99678 WBC (Bld) [#/Vol] 9.0 10*3/uL Normal 4.0-11.0 [facility] Comment on above: Performed By: #### C SOWMYA, BMP #### [facility] ([id number]) [address] [place] [address] 36165 CREATININEon 04-08-2024 Creatinine [Mass/Vol] 1.09 mg/dL High 0.40-1.00 [facility] Comment on above: Result Comment: METH OD TRACEABLE TO IDMS STANDARD Performed By: #### C SOWMYA, BMP #### [facility] ([id number]) [address] [place] [address] 19293 GFR/1.73 sq M.predicted among non-blacks MDRD (S/P/Bld) [Vol rate/Area] 52 mL/min/{1.73_m2} Low >59 [facility] Comment on above: Result Comment: Reported eGFR is based on the CKD-EPI 2020 equation that does not use a race coefficient. Performed By: #### C BCA, BMP #### [facility] ([id number]) [address] [place] [address] 02347 ELECTROLYTESon 04-08-2024 Anion gap [Moles/Vol] 8 mmol/L Normal 5-15 [facility] Comment on above: Performed By: #### C BCA, BMP #### [facility] ([id number]) [address] [place] [address] 39142 Chloride [Moles/Vol] 107 mmol/L Normal 98-109 [facility] Comment on above: Performed By: #### C BCA, BMP #### [facility] ([id number]) [address] [place] [address] 99098 CO2 [Moles/Vol] 24 mmol/L Normal 22-32 [facility] Comment on above: Performed By: #### C BCA, BMP #### [facility] ([id number]) [address] [place] [address] 66232 Potassium [Moles/Vol] 3.8 mmol/L Normal 3.5-5.0 [facility] Comment on above: Performed By: #### C BCA, BMP #### [facility] ([id number]) [address] [place] [address] 29723 Sodium [Moles/Vol] 139 mmol/L Normal 134-146 [facility] Comment on above: Performed By: #### C BCA, BMP #### [facility] ([id number]) [address] [place] [address] 09764 BLOOD UREA NITROGENon 2023 Urea nitrogen [Mass/Vol] 20 mg/dL Normal 5-27 [facility] Comment on above: Performed By: #### C SOWMYA, BMP #### [facility] ([id number]) [address] [place] [address] 23800 CBC AND AUTO DIFFon 04-02-20 24 ABSOLUTE BASOPHIL 0.1 X10E9/L Normal 0.0-0.2 [facility] Comment on above: Performed By: #### C SOWMYA, BMP #### [facility] ([id number]) [address] [place] [address] 86340 ABSOLUTE NEUTROPHIL 4.8 X10E9/L Normal 1.5-6.6 [facility] Comment on above: Performed By: #### C SOWMYA, BMP #### [facility] ([id number]) [address] [place] [address] 95464 Basophils/100 WBC (Bld) 0.7 % Normal [facility] Comment on above: Performed By: #### C SOWMYA, BMP #### [facility] ([id number]) [address] [place] [address] 47550 Eosinophils (Bld) [#/Vol] 0.2 10*3/uL Normal 0.0-0.4 [facility] Comment on above: Performed By: #### C SOWMYA, BMP #### [facility] ([id number]) [address] [place] [address] 13978 Eosinophils/100 WBC (Bld) 2.5 % Normal [facility] Comment on above: Performed By: #### C SOWMYA, BMP #### [facility] ([id number]) [address] [place] [address] 30306 Erythrocyte distribution width (RBC) [Ratio] 18.6 % High 11.5-15.0 [facility] Comment on above: Performed By: #### C SOWMYA, BMP #### [facility] ([id number]) [address] [place] [address] 13241 Hematocrit (Bld) [Volume fraction] 28.2 % Low 35-47 [facility] Comment on above: Performed By: #### C SOWMYA, BMP #### [facility] ([id number]) [address] [place] [address] 21146 Hemoglobin (Bld) [Mass/Vol] 9.1 g/dL Low 11.7-15.5 [facility] Comment on above: Performed By: #### C SOWMYA, BMP #### [facility] ([id number]) [address] [place] [address] 84831 Lymphocytes (Bld) [#/Vol] 3.2 10*3/uL Normal 1.0-3.5 [facility] Comment on above: Performed By: #### C SOWMYA, BMP #### [facility] ([id number]) [address] [place] [address] 83334 Lymphocytes/100 WBC (Bld) 34.4 % Normal [facility] Comment on above: Performed By: #### C SOWMYA, BMP #### [facility] ([id number]) [address] [place] [address] 72474 MCH (RBC) [Entitic mass] 24.5 pg Low 27-34 [facility] Comment on above: Performed By: #### C SOWMYA, BMP #### [facility] ([id number]) [address] [place] [address] [id number] MCHC (RBC) [Mass/Vol] 32.4 g/dL Normal 32-36 [facility] Comment on above: Performed By: #### C SOWMYA, BMP #### [facility] ([id number]) [address] [place] [address] 23508 MCV (RBC) [Entitic vol] 76 fL Low 80-100 [facility] Comment on above: Performed By: #### C SOWMYA, BMP #### [facility] ([id number]) [address] [place] [address] 83471 Monocytes (Bld) [#/Vol] 1.0 10*3/uL High 0-0.9 [facility] [facility] Comment on above: Performed By: #### C SOWMYA, BMP #### [facility] ([id number]) [address] [place] [address] 02912 Monocytes/100 WBC (Bld) 11.1 % Normal [facility] Comment on above: Performed By: #### C SOWMYA, BMP #### [facility] ([id number]) [address] [place] [address] 77804 Neutrophils/100 WBC (Bld) 51.3 % Normal [facility] Comment on above: Performed By: #### C SOWMYA, BMP #### [facility] ([id number]) [address] [place] [address] [place] [address] Platelet mean volume (Bld) [Entitic vol] 6.9 fL Low 7-12 [facility] Comment on above: Performed By: #### C SOWMYA, BMP #### [facility] ([id number]) [address] [place] [address] 92913 Platelets (Bld) [#/Vol] 319 10*3/uL Normal 150-450 [facility] Comment on above: Performed By: #### C SOWMYA, BMP #### [facility] ([id number]) [address] [place] [address] 28249 RBC COUNT 3.72 X10E12/L Low 3.80-5.20 [facility] Comment on above: Performed By: #### C SOWMYA, BMP #### [facility] ([id number]) [address] [place] [address] 70536 WBC (Bld) [#/Vol] 9.4 10*3/uL Normal 4.0-11.0 [facility] Comment on above: Performed By: #### C BCA, BMP #### [facility] ([id number]) [address] [place] [address] 62420 CREATININEon 04-02-2024 Creatinine [Mass/Vol] 1.13 mg/dL High 0.40-1.00 [facility] Comment on above: Result Comment: METH OD TRACEABLE TO IDMS STANDARD Performed By: #### C BCA, BMP #### [facility] ([id number]) [address] [place] [address] 71042 GFR/1.73 sq M.predicted among non-blacks MDRD (S/P/Bld) [Vol rate/Area] 50 mL/min/{1.73_m2} Low >59 [facility] Comment on above: Result Comment: Reported eGFR is based on the CKD-EPI 2020 equation that does not use a race coefficient. Performed By: #### C BCA, BMP #### [facility] ([id number]) [address] [place] [address] 34555 ELECTROLYTESon 04-02-2024 Anion gap [Moles/Vol] 7 mmol/L Normal 5-15 [facility] Comment on above: Performed By: #### C BCA, BMP #### [facility] ([id number]) [address] [place] [address] 20238 Chloride [Moles/Vol] 107 mmol/L Normal 98-109 [facility] Comment on above: Performed By: #### C BCA, BMP #### [facility] ([id number]) [address] [place] [address] 90954 CO2 [Moles/Vol] 25 mmol/L Normal 22-32 [facility] Comment on above: Performed By: #### C BCA, BMP #### [facility] ([id number]) [address] [place] [address] 67059 Potassium [Moles/Vol] 4.1 mmol/L Normal 3.5-5.0 [facility] Comment on above: Performed By: #### C BCA, BMP #### [facility] ([id number]) [address] [place] [address] 51593 Sodium [Moles/Vol] 139 mmol/L Normal 134-146 [facility] Comment on above: Performed By: #### C BCA, BMP #### [facility] ([id number]) [address] [place] [address] 13380 BASIC METABOLIC PANLon 03-30 Anion gap [Moles/Vol] 8 mmol/L Normal 5-15 [facility] Comment on above: Performed By: #### C BCA, BMP #### [facility] ([id number]) [address] [place] [address] 23638 Calcium [Mass/Vol] 9.1 mg/dL Normal 8.5-10.5 [facility] Comment on above: Performed By: #### C BCA, BMP #### [facility] ([id number]) [address] [place] [address] 82622 Chloride [Moles/Vol] 104 mmol/L Normal 98-109 [facility] Comment on above: Performed By: #### C BCA, BMP #### [facility] ([id number]) [address] [place] [address] 10530 CO2 [Moles/Vol] 26 mmol/L Normal 22-32 [facility] Comment on above: Performed By: #### C BCA, BMP #### [facility] ([id number]) [address] [place] [address] 36619 Creatinine [Mass/Vol] 1.14 mg/dL High 0.40-1.00 [facility] Comment on above: Result Comment: METH OD TRACEABLE TO IDMS STANDARD Performed By: #### C BCA, BMP #### [facility] ([id number]) [address] [place] [address] 73346 GFR/1.73 sq M.predicted among non-blacks MDRD (S/P/Bld) [Vol rate/Area] 49 mL/min/{1.73_m2} Low >59 [facility] Comment on above: Result Comment: Reported eGFR is based on the CKD-EPI 2020 equation that does not use a race coefficient. Performed By: #### C BCA, BMP #### [facility] ([id number]) [address] [place] [address] 91028 Glucose [Mass/Vol] 101 mg/dL High 65-99 [facility] Comment on above: Performed By: #### C BCA, BMP #### [facility] ([id number]) [address] [place] [address] 86406 Potassium [Moles/Vol] 4.2 mmol/L Normal 3.5-5.0 [facility] Comment on above: Performed By: #### C BCA, BMP #### [facility] ([id number]) [address] [place] [address] 45801 Sodium [Moles/Vol] 138 mmol/L Normal 134-146 [facility] Comment on above: Performed By: #### C BCA, BMP #### [facility] ([id number]) [address] [place] [address] 45998 Urea nitrogen [Mass/Vol] 21 mg/dL Normal 5-27 [facility] Comment on above: Performed By: #### C BCA, BMP #### [facility] ([id number]) [address] [place] [address] 65191 CBC AND AUTO DIFFon 03-18-20 24 ABSOLUTE BASOPHIL 0.1 X10E9/L Normal 0.0-0.2 [facility] Comment on above: Performed By: #### C BCA, BMP #### [facility] ([id number]) [address] [place] [address] 03586 ABSOLUTE NEUTROPHIL 4.5 X10E9/L Normal 1.5-6.6 [facility] Comment on above: Performed By: #### C SOWMYA, BMP #### [facility] ([id number]) [address] [place] [address] 71759 Basophils/100 WBC (Bld) 0.7 % Normal [facility] Comment on above: Performed By: #### C SOWMYA, BMP #### [facility] ([id number]) [address] [place] [address] 00602 Eosinophils (Bld) [#/Vol] 0.4 10*3/uL Normal 0.0-0.4 [facility] Comment on above: Performed By: #### C SOWMYA, BMP #### [facility] ([id number]) [address] [place] [address] 65105 Eosinophils/100 WBC (Bld) 4.1 % Normal [facility] Comment on above: Performed By: #### C SOWMYA, BMP #### [facility] ([id number]) [address] [place] [address] 05284 Erythrocyte distribution width (RBC) [Ratio] 18.8 % High 11.5-15.0 [facility] Comment on above: Performed By: #### Timmy DENG, BMP #### [facility] ([id number]) [address] [place] [address] 78055 Hematocrit (Bld) [Volume fraction] 28.0 % Low 35-47 [facility] Comment on above: Performed By: #### Timmy DENG, BMP #### [facility] ([id number]) [address] [place] [address] 21693 Hemoglobin (Bld) [Mass/Vol] 9.1 g/dL Low 11.7-15.5 [facility] Comment on above: Performed By: #### C SOWMYA, BMP #### [facility] ([id number]) [address] [place] [address] 02631 Lymphocytes (Bld) [#/Vol] 2.9 10*3/uL Normal 1.0-3.5 [facility] Comment on above: Performed By: #### C SOWMYA, BMP #### [facility] ([id number]) [address] [place] [address] 93118 Lymphocytes/100 WBC (Bld) 33.2 % Normal [facility] Comment on above: Performed By: #### C SOWMYA, BMP #### [facility] ([id number]) [address] [place] [address] 01513 MCH (RBC) [Entitic mass] 24.4 pg Low 27-34 [facility] Comment on above: Performed By: #### C SOWMYA, BMP #### [facility] ([id number]) [address] [place] [address] 78059 MCHC (RBC) [Mass/Vol] 32.3 g/dL Normal 32-36 [facility] Comment on above: Performed By: #### C SOWMYA, BMP #### [facility] ([id number]) [address] [place] [address] 30768 MCV (RBC) [Entitic vol] 76 fL Low 80-100 [facility] Comment on above: Performed By: #### C SOWMYA, BMP #### [facility] ([id number]) [address] [place] [address] 98731 Monocytes (Bld) [#/Vol] 0.8 10*3/uL Normal 0-0.9 [facility] Comment on above: Performed By: #### C SOWMYA, BMP #### [facility] ([id number]) [address] [place] [address] 28997 Monocytes/100 WBC (Bld) 9.4 % Normal [facility] Comment on above: Performed By: #### C BCA, BMP #### [facility] ([id number]) [address] [place] [address] 31112 Neutrophils/100 WBC (Bld) 52.6 % Normal [facility] Comment on above: Performed By: #### C BCA, BMP #### [facility] ([id number]) [address] [place] [address] 79186 Platelet mean volume (Bld) [Entitic vol] 6.8 fL Low 7-12 [facility] Comment on above: Performed By: #### C SOWMYA, BMP #### [facility] ([id number]) [address] [place] [address] 23384 Platelets (Bld) [#/Vol] 405 10*3/uL Normal 150-450 [facility] Comment on above: Performed By: #### C SOWMYA, BMP #### [facility] ([id number]) [address] [place] [address] 45207 RBC COUNT 3.71 X10E12/L Low 3.80-5.20 [facility] Comment on above: Performed By: #### C BCA, BMP #### [facility] ([id number]) [address] [place] [address] 69105 WBC (Bld) [#/Vol] 8.6 10*3/uL Normal 4.0-11.0 [facility] Comment on above: Performed By: #### C BCA, BMP #### [facility] ([id number]) [address] [place] [address] 68449 BLOOD UREA NITROGENon 2023 Urea nitrogen [Mass/Vol] 14 mg/dL Normal 5-27 [facility] Comment on above: Performed By: #### C BCA, BMP #### [facility] ([id number]) [address] [place] [address] CBC AND AUTO DIFFon 05-15-20 24 ABSOLUTE BASOPHIL 0.1 X10E9/L Normal 0.0-0.2 [facility] Comment on above: Performed By: #### Timmy DENG, BMP #### [facility] ([id number]) [address] [place] [address] 82078 ABSOLUTE NEUTROPHIL 6.8 X10E9/L High 1.5-6.6 [facility] Comment on above: Performed By: #### C SOWMYA, BMP #### [facility] ([id number]) [address] [place] [address] 21507 Basophils/100 WBC (Bld) 0.6 % Normal [facility] Comment on above: Performed By: #### Timmy DENG, BMP #### [facility] ([id number]) [address] [place] [address] 61628 Eosinophils (Bld) [#/Vol] 0.4 10*3/uL Normal 0.0-0.4 [facility] Comment on above: Performed By: #### Timmy DENG, BMP #### [facility] ([id number]) [address] [place] [address] 22109 Eosinophils/100 WBC (Bld) 3.7 % Normal [facility] Comment on above: Performed By: #### Timmy DENG, BMP #### [facility] ([id number]) [address] [place] [address] 25781 Erythrocyte distribution width (RBC) [Ratio] 18.8 % High 11.5-15.0 [facility] Comment on above: Performed By: #### Timmy DENG, BMP #### [facility] ([id number]) [address] [place] [address] 63101 Hematocrit (Bld) [Volume fraction] 27.4 % Low 35-47 [facility] Comment on above: Performed By: #### Timmy DENG, BMP #### [facility] ([id number]) [address] [place] [address] 84567 Hemoglobin (Bld) [Mass/Vol] 8.8 g/dL Low 11.7-15.5 [facility] Comment on above: Performed By: #### C SOWMYA, BMP #### [facility] ([id number]) [address] [place] [address] 49691 Lymphocytes (Bld) [#/Vol] 3.3 10*3/uL Normal 1.0-3.5 [facility] Comment on above: Performed By: #### C SOWMYA, BMP #### [facility] ([id number]) [address] [place] [address] 48798 Lymphocytes/100 WBC (Bld) 27.7 % Normal [facility] Comment on above: Performed By: #### C SOWMYA, BMP #### [facility] ([id number]) [address] [place] [address] 13864 MCH (RBC) [Entitic mass] 24.7 pg Low 27-34 [facility] Comment on above: Performed By: #### C SOWMYA, BMP #### [facility] ([id number]) [address] [place] [address] 38941 MCHC (RBC) [Mass/Vol] 32.3 g/dL Normal 32-36 [facility] Comment on above: Performed By: #### C SOWMYA, BMP #### [facility] ([id number]) [address] [place] [address] 69337 MCV (RBC) [Entitic vol] 77 fL Low 80-100 [facility] Comment on above: Performed By: #### C SOWMYA, BMP #### [facility] ([id number]) [address] [place] [address] 41302 Monocytes (Bld) [#/Vol] 1.2 10*3/uL High 0-0.9 [facility] Comment on above: Performed By: #### C BCA, BMP #### [facility] ([id number]) [address] [place] [address] 22806 Monocytes/100 WBC (Bld) 10.4 % Normal [facility] Comment on above: Performed By: #### C BCA, BMP #### [facility] ([id number]) [address] [place] [address] 88544 Neutrophils/100 WBC (Bld) 57.6 % Normal [facility] Comment on above: Performed By: #### C SOWMYA, BMP #### [facility] ([id number]) [address] [place] [address] 34190 Platelet mean volume (Bld) [Entitic vol] 7.3 fL Normal 7-12 [facility] Comment on above: Performed By: #### C SOWMYA, BMP #### [facility] ([id number]) [address] [place] [address] 78539 Platelets (Bld) [#/Vol] 255 10*3/uL Normal 150-450 [facility] Comment on above: Performed By: #### C BCA, BMP #### [facility] ([id number]) [address] [place] [address] 05210 RBC COUNT 3.58 X10E12/L Low 3.80-5.20 [facility] Comment on above: Performed By: #### C BCA, BMP #### [facility] ([id number]) [address] [place] [address] 05350 WBC (Bld) [#/Vol] 11.8 10*3/uL High 4.0-11.0 [facility] Comment on above: Performed By: #### C BCA, BMP #### [facility] ([id number]) [address] [place] [address] 03697 CREATININEon 05-15-2024 Creatinine [Mass/Vol] 1.09 mg/dL High 0.40-1.00 [facility] Comment on above: Result Comment: METH OD TRACEABLE TO IDMS STANDARD Performed By: #### C SOWMYA, BMP #### [facility] ([id number]) [address] [place] [address] 25714 GFR/1.73 sq M.predicted among non-blacks MDRD (S/P/Bld) [Vol rate/Area] 52 mL/min/{1.73_m2} Low >59 [facility] Comment on above: Result Comment: Reported eGFR is based on the CKD-EPI 2020 equation that does not use a race coefficient. Performed By: #### C SOWMYA, BMP #### [facility] ([id number]) [address] [place] [address] 85062 ELECTROLYTESon 03-11-2024 Anion gap [Moles/Vol] 7 mmol/L Normal 5-15 [facility] Comment on above: Performed By: #### E LEC, 3094-0, [employer]ACHINE OPERATOR, CBCA #### [facility] ([id number]) [address] [place] [address] 22093 Chloride [Moles/Vol] 106 mmol/L Normal 98-109 [facility] Comment on above: Performed By: #### E LEC, 3094-0, [employer] MACHINE OPERATOR, CBCA #### [facility] ([id number]) [address] [place] [address] 90894 CO2 [Moles/Vol] 27 mmol/L Normal 22-32 [facility] Comment on above: Performed By: #### E LEC, 3094-0, [employer] MACHINE OPERATOR, CBCA #### [facility] ([id number]) [address] [place] [address] 55181 Potassium [Moles/Vol] 4.2 mmol/L Normal 3.5-5.0 [facility] Comment on above: Performed By: #### E LEC, 3094-0, [employer] MACHINE OPERATOR, CBCA #### [facility] ([id number]) [address] [place] [address] 86787 Sodium [Moles/Vol] 140 mmol/L Normal 134-146 [facility] Comment on above: Performed By: #### E LEC, 3094-0, [employer] MACHINE OPERATOR, CBCA #### [facility] ([id number]) [address] [place] [address] 50880 CBC AND AUTO DIFFon 03-05-20 24 ABSOLUTE BASOPHIL 0.1 X10E9/L Normal 0.0-0.2 [facility] Comment on above: Performed By: #### C BCA #### [facility] ([id number]) [address] [place] [address] 94694 #### 47628-8 #### [facility] ([id number]) [address] [place] [address] ABSOLUTE NEUTROPHIL 6.2 X10E9/L Normal 1.5-6.6 [facility] Comment on above: Performed By: #### C BCA #### [facility] ([id number]) [address] [place] [address] 54660 #### 62234-4 #### [facility] ([id number]) [address] [address] [place] [address] Basophils/100 WBC (Bld) 0.6 % Normal [facility] Comment on above: Performed By: #### C BCA #### [facility] ([id number]) [address] [place] [address] 83482 #### 06936-4 #### [facility] ([id number]) [address], [address] [place] [address] Eosinophils (Bld) [#/Vol] 0.3 10*3/uL Normal 0.0-0.4 [facility] Comment on above: Performed By: #### C BCA #### [facility] ([id number]) [address] [place] [address] 26982 #### 69841-4 #### [facility] ([id number]) [address], [address] [place] [address] Eosinophils/100 WBC (Bld) 2.4 % Normal [facility] Comment on above: Performed By: #### C BCA #### [facility] ([id number]) [address] [place] [address] 00926 #### 57274-2 #### [facility] ([id number]) [address], [address] [place] [address] Erythrocyte distribution width (RBC) [Ratio] 18.9 % High 11.5-15.0 [facility] Comment on above: Performed By: #### C BCA #### [facility] ([id number]) [address] [place] [address] 70621 #### 30952-7 #### [facility] ([id number]) [address], [address] [place] [address] Hematocrit (Bld) [Volume fraction] 30.3 % Low 35-47 [facility] Comment on above: Performed By: #### C BCA #### [facility] ([id number]) [address] [place] [address] 62740 #### 87218-0 #### [facility] ([id number]) [address], [address] [place] [address] Hemoglobin (Bld) [Mass/Vol] 9.7 g/dL Low 11.7-15.5 [facility] Comment on above: Performed By: #### C BCA #### [facility] ([id number]) [address] [place] [address], [place] [address] #### 33312-3 #### [facility] ([id number]) [address], [address] [place] [address] Lymphocytes (Bld) [#/Vol] 3.8 10*3/uL High 1.0-3.5 [facility] Comment on above: Performed By: #### C BCA #### [facility] ([id number]) [address] [place] [address] 22480 #### 55492-3 #### [facility] ([id number]) [address], [address] [place] [address] Lymphocytes/100 WBC (Bld) 32.9 % Normal [facility] Comment on above: Performed By: #### C BCA #### [facility] ([id number]) [address] [place] [address] 94932 #### 47482-2 #### [facility] ([id number]) [address], [address] [place] [address] MCH (RBC) [Entitic mass] 24.6 pg Low 27-34 [facility] Comment on above: Performed By: #### C BCA #### [facility] ([id number]) [address] [place] [address] 79834 #### 83246-9 #### [facility] ([id number]) [address], [address] [place] [address] MCHC (RBC) [Mass/Vol] 32.1 g/dL Normal 32-36 [facility] Comment on above: Performed By: #### C BCA #### [facility] ([id number]) [address] [place] [address] 11067 #### 10936-3 #### [facility] ([id number]) [address], [address] [place] [address] MCV (RBC) [Entitic vol] 77 fL Low 80-100 [facility] Comment on above: Performed By: #### C BCA #### [facility] ([id number]) [address] [place] [address] 54444 #### 55446-3 #### [facility] ([id number]) [address], [address] [place] [address] Monocytes (Bld) [#/Vol] 1.3 10*3/uL High 0-0.9 [facility] Comment on above: Performed By: #### C BCA #### [facility] ([id number]) [address] [place] [address] 60593 #### 90172-6 #### [facility] ([id number]) [address] [place] [address] Monocytes/100 WBC (Bld) 11.0 % Normal [facility] Comment on above: Performed By: #### C BCA #### [facility] ([id number]) [address] [place] [address] 46228 #### 28405-9 #### [facility] ([id number]) [address], [address] [place] [address] Neutrophils/100 WBC (Bld) 53.1 % Normal [facility] Comment on above: Performed By: #### C BCA #### [facility] ([id number]) [address] [place] [address] 72010 #### 02593-2 #### [facility] ([id number]) [address], [address] [place] [address] Platelet mean volume (Bld) [Entitic vol] 7.5 fL Normal 7-12 [facility] Comment on above: Performed By: #### C BCA #### [facility] ([id number]) [address] [place] [address] 06740 #### 53739-8 #### [facility] ([id number]) [address] [facility] [place] [address] Platelets (Bld) [#/Vol] 320 10*3/uL Normal 150-450 [facility] Comment on above: Performed By: #### C BCA #### [facility] ([id number]) [address] [place] [address] 79555 #### 82626-9 #### [facility] ([id number]) [address] [facility], [address] [place] [address] 95331 RBC COUNT 3.96 X10E12/L Normal 3.80-5.20 [facility] Comment on above: Performed By: #### C BCA #### [facility] ([id number]) [address] [place] [address] 87702 #### 86603-0 #### [facility] ([id number]) [address] [place] [address], [address] [place] [address] 19361 WBC (Bld) [#/Vol] 11.7 10*3/uL High 4.0-11.0 [facility] Comment on above: Performed By: #### C BCA #### [facility] ([id number]) [address] [place] [address] #### 43616-2 #### [facility] ([id number]) [facility] [address] [place] [address] ESR Photometric method (Bld) [Velocity]on 03-05-2024 ESR, ERYTHROCYTE SEDIMENTATION RATE 43 mm/h High 0-30 [facility] Comment on above: Performed By: #### C BCA #### [facility] ([id number]) [address] [place] [address] #### [id number] #### [facility] ([id number]) [address] [facility], [address] [place] [address] FL SWALLOW MOTILITY FUNCTION on 03-04-2024 FL [...] Dowell MD on 03/04/2024 10:58 AM Normal [facility] URINALYSISon 03-03-2024 Bilirubin Ql (U) Negative Normal NEG [facility] Comment on above: Performed By: #### U A #### [facility] ([id number]) [address] [place] [address] BLOOD/HGB Negative Normal NEG [facility] Comment on above: Performed By: #### U A #### [facility] ([id number]) [address] [place] [address] 60738 Color (U) YELLOW Normal YELLOW [facility] Comment on above: Performed By: #### U A #### [facility] ([id number]) [address] [place] [address]164 Glucose Ql (U) Negative Normal NEG [facility] Comment on above: Performed By: #### U A #### [facility] ([id number]) [address] [place] [address] 15461 Ketones Ql (U) Negative Normal NEG [facility] Comment on above: Performed By: #### U A #### [facility] ([id number]) [address] [place] [address] 20154 Leukocyte esterase Test strip Ql (U) Negative Normal NEG [facility] Comment on above: Performed By: #### U A #### [facility] ([id number]) [address] [place] [address] 25135 Nitrite Ql (U) Negative Normal NEG [facility] Comment on above: Performed By: #### U A #### [facility] ([id number]) [address] [place] [address] 80981 pH (U) 6.0 [pH] Normal 5.0-8.5 [facility] Comment on above: Performed By: #### U A #### [facility] ([id number]) [address] [place] [address] 83196 Protein Ql (U) Negative Normal [facility] Comment on above: Performed By: #### U A #### [facility] ([id number]) [address] [place] [address] 47956 Specific gravity (U) [Rel density] 1.020 Normal 1.003-1.[address] [place] [address] Comment on above: Performed By: #### U A #### [facility] ([id number]) [address] [place] [address] 3[address] TURBIDITY CLEAR Normal CLEAR [facility] Comment on above: Performed By: #### U A #### [facility] ([id number]) [address] [place] [address] 95303 Urobilinogen Qn (U) 0.2 {Jose'U}/dL Normal <1.1 [facility] [facility] Comment on above: Performed By: #### U A #### [facility] ([id number]) [address] [place] [address] 07514 URINE CULTUREon 03-03-2024 Bacteria identified Cx Nom (U) CULTURE RESULTS NO GROWTH AT <1000 CFU/mL Normal [facility] Comment on above: Performed By: #### 6 30-4 #### [facility] ([id number]) [address] [place] [address] BASIC METABOLIC PANLon 03-02 Anion gap [Moles/Vol] 9 mmol/L Normal 5-15 [facility] Comment on above: Performed By: #### C BCA, BMP #### [facility] ([id number]) [address] [place] [address] 07831 Calcium [Mass/Vol] 8.4 mg/dL Low 8.5-10.5 [facility] Comment on above: Performed By: #### C BCA, BMP #### [facility] ([id number]) [address] [place] [address] 17223 Chloride [Moles/Vol] 106 mmol/L Normal 98-109 [facility] Comment on above: Performed By: #### C BCA, BMP #### [facility] ([id number]) [address] [place] [address] 18484 CO2 [Moles/Vol] 27 mmol/L Normal 22-32 [facility] Comment on above: Performed By: #### C BCA, BMP #### [facility] ([id number]) [address] [place] [address] 06507 Creatinine [Mass/Vol] 1.13 mg/dL High 0.40-1.00 [facility] Comment on above: Result Comment: METH OD TRACEABLE TO IDMS STANDARD Performed By: #### C BCA, BMP #### [facility] ([id number]) [address] [place] [address] 51916 GFR/1.73 sq M.predicted among non-blacks MDRD (S/P/Bld) [Vol rate/Area] 50 mL/min/{1.73_m2} Low >59 [facility] Comment on above: Result Comment: Reported eGFR is based on the CKD-EPI 2020 equation that does not use a race coefficient. Performed By: #### C SOWMYA, BMP #### [facility] ([id number]) [address] [place] [address] 39289 Glucose [Mass/Vol] 106 mg/dL High 65-99 [facility] Comment on above: Performed By: #### C SOWMYA, BMP #### [facility] ([id number]) [address] [place] [address] 00022 Potassium [Moles/Vol] 3.4 mmol/L Low 3.5-5.0 [facility] Comment on above: Performed By: #### C SOWMYA, BMP #### [facility] ([id number]) [address] [place] [address] 27603 Sodium [Moles/Vol] 142 mmol/L Normal 134-146 [facility] Comment on above: Performed By: #### C SOWMYA, BMP #### [facility] ([id number]) [address] [place] [address] 20075 Urea nitrogen [Mass/Vol] 35 mg/dL High 5-27 [facility] Comment on above: Performed By: #### Timmy DENG, BMP #### [facility] ([id number]) [address] [place] [address] 46696 CBC AND AUTO DIFFon 03-02-20 24 ABSOLUTE BASOPHIL 0.1 X10E9/L Normal 0.0-0.2 [facility] Comment on above: Performed By: #### Timmy DENG, BMP #### [facility] ([id number]) [address] [place] [address] 22540 ABSOLUTE NEUTROPHIL 7.0 X10E9/L High 1.5-6.6 [facility] Comment on above: Performed By: #### C BCA, BMP #### [facility] ([id number]) [address] [place] [address] 18728 Basophils/100 WBC (Bld) 0.6 % Normal [facility] Comment on above: Performed By: #### C BCA, BMP #### [facility] ([id number]) [address] [place] [address] 15434 Eosinophils (Bld) [#/Vol] 0.1 10*3/uL Normal 0.0-0.4 [facility] Comment on above: Performed By: #### C SOWMYA, BMP #### [facility] ([id number]) [address] [place] [address] 34535 Eosinophils/100 WBC (Bld) 0.5 % Normal [facility] Comment on above: Performed By: #### C SOWMYA, BMP #### [facility] ([id number]) [address] [place] [address] [place] [address] Erythrocyte distribution width (RBC) [Ratio] 18.2 % High 11.5-15.0 [facility] Comment on above: Performed By: #### C BCA, BMP #### [facility] ([id number]) [address] [place] [address] 78960 Hematocrit (Bld) [Volume fraction] 30.8 % Low 35-47 [facility] Comment on above: Performed By: #### C BCA, BMP #### [facility] ([id number]) [address] [place] [address] 15751 Hemoglobin (Bld) [Mass/Vol] 10.0 g/dL Low 11.7-15.5 [facility] Comment on above: Performed By: #### C BCA, BMP #### [facility] ([id number]) [address] [place] [address] Lymphocytes (Bld) [#/Vol] 4.1 10*3/uL High 1.0-3.5 [facility] Comment on above: Performed By: #### C SOWMYA, BMP #### [facility] ([id number]) [address] [place] [address] 66598 Lymphocytes/100 WBC (Bld) 32.1 % Normal [facility] Comment on above: Performed By: #### C SOWMYA, BMP #### [facility] ([id number]) [address] [place] [address] [place] [address] MCH (RBC) [Entitic mass] 24.9 pg Low 27-34 [facility] Comment on above: Performed By: #### C SOWMYA, BMP #### [facility] ([id number]) [address] [place] [address] 41102 MCHC (RBC) [Mass/Vol] 32.3 g/dL Normal 32-36 [facility] Comment on above: Performed By: #### C SOWMYA, BMP #### [facility] ([id number]) [address] [place] [address] 26678 MCV (RBC) [Entitic vol] 77 fL Low 80-100 [facility] Comment on above: Performed By: #### C BCA, BMP #### [facility] ([id number]) [address] [place] [address] [place] [address] Monocytes (Bld) [#/Vol] 1.5 10*3/uL High 0-0.9 [facility] Comment on above: Performed By: #### C BCA, BMP #### [facility] ([id number]) [address] [place] [address] 88795 Monocytes/100 WBC (Bld) 11.5 % Normal [facility] Comment on above: Performed By: #### C SOWMYA, BMP #### [facility] ([id number]) [address] [place] [address] 86775 Neutrophils/100 WBC (Bld) 55.3 % Normal [facility] Comment on above: Performed By: #### Timmy DENG, BMP #### [facility] ([id number]) [address] [place] [address] 54480 Platelet mean volume (Bld) [Entitic vol] 7.4 fL Normal 7-12 [facility] Comment on above: Performed By: #### Timmy DENG, BMP #### [facility] ([id number]) [address] [place] [address] 18414 Platelets (Bld) [#/Vol] 360 10*3/uL Normal 150-450 [facility] Comment on above: Performed By: #### C SOWMYA, BMP #### [facility] ([id number]) [address] [place] [address] 44928 RBC COUNT 4.00 X10E12/L Normal 3.80-5.20 [facility] Comment on above: Performed By: #### Timmy DENG, BMP #### [facility] ([id number]) [address] [place] [address] 80257 WBC (Bld) [#/Vol] 12.7 10*3/uL High 4.0-11.0 [facility] Comment on above: Performed By: #### Timmy DENG, BMP #### [facility] ([id number]) [address] [place] [address] 63484 BASIC METABOLIC PANLon 02-26 Anion gap [Moles/Vol] 8 mmol/L Normal 5-15 [facility] Comment on above: Performed By: #### Timmy DENG, BMP #### [facility] ([id number]) [address] [place] [address] 23266 Calcium [Mass/Vol] 8.7 mg/dL Normal 8.5-10.5 [facility] Comment on above: Performed By: #### C BCA, BMP #### [facility] ([id number]) [address] [place] [address] 85270 Chloride [Moles/Vol] 97 mmol/L Low 98-109 [facility] Comment on above: Performed By: #### C BCA, BMP #### [facility] ([id number]) [address] [place] [address] 03422 CO2 [Moles/Vol] 29 mmol/L Normal 22-32 [facility] Comment on above: Performed By: #### C BCA, BMP #### [facility] ([id number]) [address] [place] [address] 36313 Creatinine [Mass/Vol] 1.22 mg/dL High 0.40-1.00 [facility] Comment on above: Result Comment: METH OD TRACEABLE TO IDMS STANDARD Performed By: #### C BCA, BMP #### [facility] ([id number]) [address] [place] [address] 66084 GFR/1.73 sq M.predicted among non-blacks MDRD (S/P/Bld) [Vol rate/Area] 45 mL/min/{1.73_m2} Low >59 [facility] Comment on above: Result Comment: Reported eGFR is based on the CKD-EPI 2020 equation that does not use a race coefficient. Performed By: #### C BCA, BMP #### [facility] ([id number]) [address] [place] [address] 16717 Glucose [Mass/Vol] 123 mg/dL High 65-99 [facility] Comment on above: Performed By: #### C BCA, BMP #### [facility] ([id number]) [address] [place] [address] 97829 Potassium [Moles/Vol] 4.0 mmol/L Normal 3.5-5.0 [facility] Comment on above: Performed By: #### C BCA, BMP #### [facility] ([id number]) [address] [place] [address] 22890 Sodium [Moles/Vol] 134 mmol/L Normal 134-146 [facility] Comment on above: Performed By: #### C SOWMYA, BMP #### [facility] ([id number]) [address] [place] [address] 68199 Urea nitrogen [Mass/Vol] 35 mg/dL High 5-27 [facility] Comment on above: Performed By: #### C SOWMYA, BMP #### [facility] ([id number]) [address] [place] [address] 77959 CBC AND AUTO DIFFon 02-27-20 24 Eosinophils (Bld) [#/Vol] 0.2 10*3/uL Normal 0.0-0.4 [facility] Comment on above: Performed By: #### C SOWMYA, BMP #### [facility] ([id number]) [address] [place] [address] 93962 Eosinophils/100 WBC (Bld) 1.0 % Normal [facility] Comment on above: Performed By: #### C SOWMYA, BMP #### [facility] ([id number]) [address] [place] [address] 49116 Erythrocyte distribution width (RBC) [Ratio] 18.2 % High 11.5-15.0 [facility] Comment on above: Performed By: #### C SOWMYA, BMP #### [facility] ([id number]) [address] [place] [address] 61485 Hematocrit (Bld) [Volume fraction] 35.1 % Normal 35-47 [facility] Comment on above: Performed By: #### C SOWMYA, BMP #### [facility] ([id number]) [address] [place] [address] 65535 Hemoglobin (Bld) [Mass/Vol] 11.4 g/dL Low 11.7-15.5 [facility] Comment on above: Performed By: #### C BCA, BMP #### [facility] ([id number]) [address] [place] [address] 63204 Lymphocytes (Bld) [#/Vol] 4.0 10*3/uL High 1.0-3.5 [facility] Comment on above: Performed By: #### C SOWMYA, BMP #### [facility] ([id number]) [address] [place] [address] 61317 Lymphocytes/100 WBC (Bld) 21.0 % Normal [facility] Comment on above: Performed By: #### C SOWMYA, BMP #### [facility] ([id number]) [address] [place] [address] 55674 MCH (RBC) [Entitic mass] 24.6 pg Low 27-34 [facility] Comment on above: Performed By: #### C SOWMYA, BMP #### [facility] ([id number]) [address] [place] [address] 45562 MCHC (RBC) [Mass/Vol] 32.5 g/dL Normal 32-36 [facility] Comment on above: Performed By: #### C SOWMYA, BMP #### [facility] ([id number]) [address] [place] [address] 78619 MCV (RBC) [Entitic vol] 76 fL Low 80-100 [facility] Comment on above: Performed By: #### C BCA, BMP #### [facility] ([id number]) [address] [place] [address] 46456 Monocytes (Bld) [#/Vol] 1.4 10*3/uL High 0-0.9 [facility] Comment on above: Performed By: #### C BCA, BMP #### [facility] ([id number]) [address] [place] [address] 86472 Monocytes/100 WBC (Bld) 7.6 % Normal [facility] Comment on above: Performed By: #### Timmy DENG, BMP #### [facility] ([id number]) [address] [place] [address] 40579 MYELOCYTE 1.0 % Normal [facility] Comment on above: Performed By: #### Timmy DENG, BMP #### [facility] ([id number]) [address] [place] [address] 12354 Neutrophils (Bld) [#/Vol] 13.1 10*3/uL High 1.5-6.6 [facility] Comment on above: Performed By: #### Timmy DNEG, BMP #### [facility] ([id number]) [address] [place] [address] 60620 Platelet mean volume (Bld) [Entitic vol] 7.2 fL Normal 7-12 [facility] Comment on above: Performed By: #### C SOWMYA, BMP #### [facility] ([id number]) [address] [place] [address] 61815 Platelets (Bld) [#/Vol] 398 10*3/uL Normal 150-450 [facility] Comment on above: Performed By: #### Timmy DENG, BMP #### [facility] ([id number]) [address] [place] [address] 70578 RBC COUNT 4.63 X10E12/L Normal 3.80-5.20 [facility] Comment on above: Performed By: #### C SOWMYA, BMP #### [facility] ([id number]) [address] [place] [address] 13988 SEG NEUTROPHIL 69.4 % Normal [facility] Comment on above: Performed By: #### Timmy DENG, BMP #### [facility] ([id number]) [address] [place] [address] [place] [address] WBC (Bld) [#/Vol] 18.9 10*3/uL High 4.0-11.0 [facility] Comment on above: Performed By: #### C BCA, BMP #### [facility] ([id number]) [address] [place] [address], [place] [address] CBC AND AUTO DIFFon 02-25-20 24 Band form neutrophils/100 WBC (Bld) 1.0 % Normal [facility] Comment on above: Performed By: #### E LEC #### [facility] ([id number]) [address] [address] [place] [address] Erythrocyte distribution width (RBC) [Ratio] 18.4 % High 11.5-15.0 [facility] Comment on above: Performed By: #### E LEC #### [facility] ([id number]) [address] [address] [place] [address] Hematocrit (Bld) [Volume fraction] 36.0 % Normal 35-47 [facility] Comment on above: Performed By: #### E LEC #### [facility] ([id number]) [address] [facility] [address] [place] [address] Hemoglobin (Bld) [Mass/Vol] 11.6 g/dL Low 11.7-15.5 [facility] Comment on above: Performed By: #### E LEC #### [facility] ([id number]) [address] [address] [place] [address] HYPOCHROMIA 1+ Abnormal NONE [facility] Comment on above: Performed By: #### E LEC #### [facility] ([id number]) [address] [address] [place] [address] Lymphocytes (Bld) [#/Vol] 4.6 10*3/uL High 1.0-3.5 [facility] Comment on above: Performed By: #### E LEC #### [facility] ([id number]) [address], [address] [place] [address] Lymphocytes/100 WBC (Bld) 28.0 % Normal [facility] Comment on above: Performed By: #### E LEC #### [facility] ([id number]) [address], [address] [place] [address] MCH (RBC) [Entitic mass] 24.9 pg Low 27-34 [facility] Comment on above: Performed By: #### E LEC #### [facility] ([id number]) [address], [address] [place] [address] MCHC (RBC) [Mass/Vol] 32.3 g/dL Normal 32-36 [facility] Comment on above: Performed By: #### E LEC #### [facility] ([id number]) [address], [address] [place] [address] MCV (RBC) [Entitic vol] 77 fL Low 80-100 [facility] Comment on above: Performed By: #### E LEC #### [facility] ([id number]) [address], [address] [place] [address] Monocytes (Bld) [#/Vol] 1.3 10*3/uL High 0-0.9 [facility] Comment on above: Performed By: #### E LEC #### [facility] ([id number]) [address], [address] [place] [address] Monocytes/100 WBC (Bld) 8.0 % Normal [facility] Comment on above: Performed By: #### E LEC #### [facility] ([id number]) [address], [address] [place] [address] MYELOCYTE 1.0 % Normal [facility] Comment on above: Performed By: #### E LEC #### [facility] ([id number]) [address], [address] [place] [address] Neutrophils (Bld) [#/Vol] 10.2 10*3/uL High 1.5-6.6 [facility] Comment on above: Performed By: #### E LEC #### [facility] ([id number]) [address], [address] [place] [address] Platelet mean volume (Bld) [Entitic vol] 6.8 fL Low 7-12 [facility] Comment on above: Performed By: #### E LEC #### [facility] ([id number]) [address], [address] [place] [address] Platelets (Bld) [#/Vol] 480 10*3/uL High 150-450 [facility] Comment on above: Performed By: #### E LEC #### [facility] ([id number]) [address], [address] [place] [address] RBC COUNT 4.66 X10E12/L Normal 3.80-5.20 [facility] Comment on above: Performed By: #### E LEC #### [facility] ([id number]) [address], [address] [place] [address] SEG NEUTROPHIL 62.0 % Normal [facility] Comment on above: Performed By: #### E LEC #### [facility] ([id number]) [address], [address] [place] [address] WBC (Bld) [#/Vol] 16.3 10*3/uL High 4.0-11.0 [facility] Comment on above: Performed By: #### E LEC #### [facility] ([id number]) [address], [address] [place] [address] COMPREHENSIVE METABOLIC PANE Harsha 02-25-2024 Albumin [Mass/Vol] 2.8 g/dL Low 3.2-5.3 [facility] Comment on above: Performed By: #### E LEC #### [facility] ([id number]) [address], [address] [place] [address] ALP [Catalytic activity/Vol] 61 U/L Normal 39-130 [facility] Comment on above: Performed By: #### E LEC #### [facility] ([id number]) [address], [address] [place] [address] ALT [Catalytic activity/Vol] 16 U/L Normal 0-31 [facility] Comment on above: Performed By: #### E LEC #### [facility] ([id number]) [address], [address] [place] [address] Anion gap [Moles/Vol] 8 mmol/L Normal 5-15 [facility] Comment on above: Performed By: #### E LEC #### [facility] ([id number]) [address], [address] [place] [address] AST [Catalytic activity/Vol] 20 U/L Normal 0-41 [facility] Comment on above: Performed By: #### E LEC #### [facility] ([id number]) [address], [address] [place] [address] Bilirubin [Mass/Vol] 0.3 mg/dL Normal 0.3-1.2 [facility] Comment on above: Performed By: #### E LEC #### [facility] ([id number]) [address], [address] [place] [address] Calcium [Mass/Vol] 9.1 mg/dL Normal 8.5-10.5 [facility] Comment on above: Performed By: #### E LEC #### [facility] ([id number]) [address], [address] [place] [address] Chloride [Moles/Vol] 101 mmol/L Normal 98-109 [facility] Comment on above: Performed By: #### E LEC #### [facility] ([id number]) [address] [facility] [place] [address] CO2 [Moles/Vol] 29 mmol/L Normal 22-32 [facility] Comment on above: Performed By: #### E LEC #### [facility] ([id number]) [address] [facility] [place] [address] Creatinine [Mass/Vol] 1.16 mg/dL High 0.40-1.00 [facility] Comment on above: Result Comment: METH OD TRACEABLE TO IDMS STANDARD Performed By: #### E LEC #### [facility] ([id number]) [address] [facility] [address] [place] [address] GFR/1.73 sq M.predicted among non-blacks MDRD (S/P/Bld) [Vol rate/Area] 48 mL/min/{1.73_m2} Low >59 [facility] Comment on above: Result Comment: Reported eGFR is based on the CKD-EPI 2020 equation that does not use a race coefficient. Performed By: #### E LEC #### [facility] ([id number]) [address] [facility] [place] [address] Glucose [Mass/Vol] 73 mg/dL Normal 65-99 [facility] Comment on above: Performed By: #### E LEC #### [facility] ([id number]) [address] [facility] [address] [place] [address] Potassium [Moles/Vol] 5.0 mmol/L Normal 3.5-5.0 [facility] Comment on above: Performed By: #### E LEC #### [facility] ([id number]) [address] [facility] [place] [address] Protein [Mass/Vol] 6.2 g/dL Normal 6.0-8.0 [facility] Comment on above: Performed By: #### E LEC #### [facility] ([id number]) [address], [address] [place] [address] Sodium [Moles/Vol] 138 mmol/L Normal 134-146 [facility] Comment on above: Performed By: #### E LEC #### [facility] ([id number]) [address], [address] [place] [address] Urea nitrogen [Mass/Vol] 44 mg/dL High 5-27 [facility] Comment on above: Performed By: #### E LEC #### [facility] ([id number]) [address] [place] [address] Creatinine (U) [Mass/Vol]on 02-25-2024 URINE CREATININE,RDM 57.71 mg/dL Normal [facility] Comment on above: Performed By: #### E LEC #### [facility] ([id number]) [address] [place] [address] MAGNESIUMon 02-25-2024 Magnesium [Mass/Vol] 1.9 mg/dL Normal 1.8-2.6 [facility] Comment on above: Performed By: #### E LEC #### [facility] ([id number]) [address] [place] [address] Osmolality (U) [Osmolality]o n 02-25-2024 URINE OSMOLALITY 631 mOsm/kg H2 Normal 300-1300 [facility] Comment on above: Performed By: #### E LEC #### [facility] ([id number]) [address], [address] [place] [address] PHOSPHORUSon 02-25-2024 Phosphate [Mass/Vol] 5.9 mg/dL High 2.4-4.9 [facility] Comment on above: Result Comment: SPEC IMEN HEMOLYZED, RESULTS INCREASED SLIGHTLY HEMOLYZED Performed By: #### E LEC #### [facility] ([id number]) [address] [place] [address], [address] [address] Provider Letteron 02-25-2024 Provider Letter (Inserted Image. Sahra ble to display) February 25, 2024 GERA PERDUE [address] [place] [address] : 1945 Dear Gera Perdue , We [...] Sincerely, [facility] option #3 Normal [facility] URINE SODIUM,RANDOMon 2023 Sodium (U) [Moles/Vol] 119 mmol/L Normal Pr [facility] Comment on above: Performed By: #### E LEC #### [facility] ([id number]) [address] [place] [address] AFB CULTURE(CONCENTRATED)on 02-24-2024 Mycobacterium sp identified Org specific cx Nom (Unsp spec) SPECIMEN NOTES SPECIMEN 2 AFB SMEAR NO ACID FAST BACILLI (CONCENTRATED SMEAR) CULTURE RESULTS NO ACID FAST BACILLI ISOLATED IN 8 WEEKS [facility] Comment on above: Performed By: #### E LEC #### [facility] ([id number]) [address] [place] [address] Mycobacterium sp identified Org specific cx Nom (Unsp spec) SPECIMEN NOTES SPECIMEN 1 AFB SMEAR NO ACID FAST BACILLI (CONCENTRATED SMEAR) CULTURE RESULTS NO ACID FAST BACILLI ISOLATED IN 8 WEEKS [facility] Comment on above: Performed By: #### E LEC #### [facility] ([id number]) [address] [place] [address] AND DIFFon 2023 BODY FLUID COMMENT Interpreta tion-- ------ Normal [facility] Comment on above: Result Comment: Refe rence values for this fluid type are undefined, as fluid accumulation is considered abnormal. Performed By: #### E LEC #### [facility] ([id number]) [address] [place] [address] FLUID CLARITY HAZY Normal [facility] Comment on above: Performed By: #### E LEC #### [facility] ([id number]) [address], [address] [place] [address] FLUID COLOR COLORLESS Normal [facility] Comment on above: Performed By: #### E LEC #### [facility] ([id number]) [address], [address] [place] [address] FLUID LYMPHOCYTE 6 % Normal [facility] Comment on above: Performed By: #### E LEC #### [facility] ([id number]) [address], [address] [place] [address] FLUID NEUTROPHILS 69 % Normal [facility] Comment on above: Performed By: #### E LEC #### [facility] ([id number]) [address] [place] [address] 34 /uL Normal [facility] Comment on above: Performed By: #### E LEC #### [facility] ([id number]) [address], [address] [place] [address] FLUID SPECIMEN TYPE BRONCHOALVEOLAR LAVAGE Normal [facility] Comment on above: Result Comment: RIGH T LUNG, LOWER LOBE SPECIMEN 2 Performed By: #### E LEC #### [facility] ([id number]) [address], [address] [place] [address] MACROPHAGES 25 % Normal [facility] Comment on above: Performed By: #### E LEC #### [facility] ([id number]) [address], [address] [place] [address] 440 /uL Normal [facility] Comment on above: Performed By: #### E LEC #### [facility] ([id number]) [address], [address] [place] [address] CBC AND AUTO DIFFon 02-24-20 Erythrocyte distribution width (RBC) [Ratio] 18.3 % High 11.5-15.0 [facility] Comment on above: Performed By: #### E LEC #### [facility] ([id number]) [address], [address] [place] [address] Hematocrit (Bld) [Volume fraction] 34.7 % Low 35-47 [facility] Comment on above: Performed By: #### E LEC #### [facility] ([id number]) [address], [address] [place] [address] Hemoglobin (Bld) [Mass/Vol] 11.2 g/dL Low 11.7-15.5 [facility] Comment on above: Performed By: #### E LEC #### [facility] ([id number]) [address], [address] [place] [address] Lymphocytes (Bld) [#/Vol] 2.8 10*3/uL Normal 1.0-3.5 [facility] Comment on above: Performed By: #### E LEC #### [facility] ([id number]) [address], [address] [place] [address] Lymphocytes/100 WBC (Bld) 17.0 % Normal [facility] Comment on above: Performed By: #### E LEC #### [facility] ([id number]) [address], [address] [place] [address] MCH (RBC) [Entitic mass] 24.6 pg Low 27-34 [facility] Comment on above: Performed By: #### E LEC #### [facility] ([id number]) [address], [address] [place] [address] MCHC (RBC) [Mass/Vol] 32.1 g/dL Normal 32-36 [facility] Comment on above: Performed By: #### E LEC #### [facility] ([id number]) [address], [address] [place] [address] MCV (RBC) [Entitic vol] 77 fL Low 80-100 [facility] Comment on above: Performed By: #### E LEC #### [facility] ([id number]) [address], [address] [place] [address] Metamyelocytes/100 WBC (Bld) 1.0 % Normal [facility] Comment on above: Performed By: #### E LEC #### [facility] ([id number]) [address], [address] [place] [address] Monocytes (Bld) [#/Vol] 0.7 10*3/uL Normal 0-0.9 [facility] Comment on above: Performed By: #### E LEC #### [facility] ([id number]) [address], [address] [place] [address] Monocytes/100 WBC (Bld) 4.0 % Normal [facility] Comment on above: Performed By: #### E LEC #### [facility] ([id number]) [address], [address] [place] [address] Neutrophils (Bld) [#/Vol] 12.7 10*3/uL High 1.5-6.6 [facility] Comment on above: Performed By: #### E LEC #### [facility] ([id number]) [address], [address] [place] [address] Platelet mean volume (Bld) [Entitic vol] 6.7 fL Low 7-12 [facility] Comment on above: Performed By: #### E LEC #### [facility] ([id number]) [address], [address] [place] [address] Platelets (Bld) [#/Vol] 479 10*3/uL High 150-450 [facility] Comment on above: Performed By: #### E LEC #### [facility] ([id number]) [address], [address] [place] [address] RBC COUNT 4.54 X10E12/L Normal 3.80-5.20 [facility] Comment on above: Performed By: #### E LEC #### [facility] ([id number]) [address], [address] [place] [address] RBC morphology finding Nom (Bld) NORMAL Normal [facility] Comment on above: Performed By: #### E LEC #### [facility] ([id number]) [address], [address] [place] [address] SEG NEUTROPHIL 78.0 % Normal [facility] Comment on above: Performed By: #### E LEC #### [facility] ([id number]) [address], [address] [place] [address] WBC (Bld) [#/Vol] 16.4 10*3/uL High 4.0-11.0 [facility] Comment on above: Performed By: #### E LEC #### [facility] ([id number]) [address], [address] [place] [address] COMPREHENSIVE METABOLIC PANE Harsha 02-24-2024 Albumin [Mass/Vol] 2.8 g/dL Low 3.2-5.3 [facility] Comment on above: Performed By: #### E LEC #### [facility] ([id number]) [address], [address] [place] [address] ALP [Catalytic activity/Vol] 63 U/L Normal 39-130 [facility] Comment on above: Performed By: #### E LEC #### [facility] ([id number]) [address], [address] [place] [address] ALT [Catalytic activity/Vol] 11 U/L Normal 0-31 [facility] Comment on above: Performed By: #### E LEC #### [facility] ([id number]) [address], [address] [place] [address] Anion gap [Moles/Vol] 6 mmol/L Normal 5-15 [facility] Comment on above: Performed By: #### E LEC #### [facility] ([id number]) [address], [address] [place] [address] AST [Catalytic activity/Vol] 12 U/L Normal 0-41 [facility] Comment on above: Performed By: #### E LEC #### [facility] ([id number]) [address], [address] [place] [address] Bilirubin [Mass/Vol] 0.2 mg/dL Low 0.3-1.2 [facility] Comment on above: Performed By: #### E LEC #### [facility] ([id number]) [address], [address] [place] [address] Calcium [Mass/Vol] 9.1 mg/dL Normal 8.5-10.5 [facility] Comment on above: Performed By: #### E LEC #### [facility] ([id number]) [address], [address] [place] [address] Chloride [Moles/Vol] 101 mmol/L Normal 98-109 [facility] Comment on above: Performed By: #### E LEC #### [facility] ([id number]) [address], [address] [place] [address] CO2 [Moles/Vol] 31 mmol/L Normal 22-32 [facility] Comment on above: Performed By: #### E LEC #### [facility] ([id number]) [address] [address] [place] [address] Creatinine [Mass/Vol] 1.05 mg/dL High 0.40-1.00 [facility] Comment on above: Result Comment: METH OD TRACEABLE TO IDMS STANDARD Performed By: #### E LEC #### [facility] ([id number]) [address] [address] [place] [address] GFR/1.73 sq M.predicted among non-blacks MDRD (S/P/Bld) [Vol rate/Area] 54 mL/min/{1.73_m2} Low >59 [facility] Comment on above: Result Comment: Reported eGFR is based on the CKD-EPI 2020 equation that does not use a race coefficient. Performed By: #### E LEC #### [facility] ([id number]) [address] [address] [place] [address] Glucose [Mass/Vol] 91 mg/dL Normal 65-99 [facility] Comment on above: Performed By: #### E LEC #### [facility] ([id number]) [address] [address] [place] [address] Potassium [Moles/Vol] 4.5 mmol/L Normal 3.5-5.0 [facility] Comment on above: Performed By: #### E LEC #### [facility] ([id number]) [address] [address] [place] [address] Protein [Mass/Vol] 6.2 g/dL Normal 6.0-8.0 [facility] Comment on above: Performed By: #### E LEC #### [facility] ([id number]) [address] [address] [place] [address] Sodium [Moles/Vol] 138 mmol/L Normal 134-146 [facility] Comment on above: Performed By: #### E LEC #### [facility] ([id number]) [address] [place] [address], [address] [place] [address] Urea nitrogen [Mass/Vol] 33 mg/dL High 5-27 [facility] Comment on above: Performed By: #### E LEC #### [facility] ([id number]) [address] [place] [address], [facility] [address] [place] [address] Cytologyon 02-24-2024 Cytology Normal [facility] Comment on above: Result Comment: [facility] [address] [place] [address] Cytology Consultation Patient Name:LIDA PERDUEB:1945 (Age: 78)Gender:FTaken:4Reported:02/27/2024 16:56Physician(s):Elsa Quinonez MD ([phone])Copy To:Noe Huang Wel[facility] Healthession #:[id number]. Rec. #:[id number]: #[id number] Final Cytologic Diagnosis 1. Right lower lobe, bronchial washing: No malignant cells identified. 2. Right lower lobe, bronchoalveolar lavage: No malignant cells identified. 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 (M), Level 2 H&E, Non TEACHING FELLOW [employer] 2: Right lower lobe, bronchoalveolar lavage Cell block for Non-obgyn nurse (M), Level 2 H&E, Non TEACHING FELLOW [employer] Fee Code(s): 1; 11290, 31527 2; 74445, 42458 FUNGAL CULTUREon 02-24-2024 Fungus identified Cx Nom (Unsp spec) SPECIMEN NOTES SPECIMEN 2 FUNGAL SMEAR NO FUNGAL ELEMENTS SEEN ON CONCENTRATED SMEAR CULTURE RESULTS NO FUNGUS ISOLATED AFTER 4 WEEKS Normal [facility] Comment on above: Performed By: #### E LEC #### [facility] ([id number]) [address], [address] [place] [address] Fungus identified Cx Nom (Unsp spec) SPECIMEN NOTES SPECIMEN 1 FUNGAL SMEAR NO FUNGAL ELEMENTS SEEN ON CONCENTRATED SMEAR CULTURE RESULTS NO FUNGUS ISOLATED AFTER 4 WEEKS [facility] Comment on above: Performed By: #### E LEC #### [facility] ([id number]) [address], [address] [place] [address] LOWER RESPIRATORY CULTUREon 02-24-2024 Bacteria identified Respiratory culture Nom (Sput) SPECIMEN NOTES SPECIMEN 2 GRAM STAIN 1 to 9 WHITE BLOOD CELLS/LPF 1 to 9 SQUAMOUS EPITHELIAL CELLS/LPF 0 CILIATED EPITHELIAL CELLS/LPF NO ORGANISMS SEEN CULTURE RESULTS RARE NORMAL ORAL KIMBERLY Normal [facility] Comment on above: Performed By: #### E LEC #### [facility] ([id number]) [address], [address] [place] [address] Bacteria identified Respiratory culture Nom (Sput) SPECIMEN NOTES SPECIMEN 1 GRAM STAIN 1 to 9 WHITE BLOOD CELLS/LPF 1 to 9 SQUAMOUS EPITHELIAL CELLS/LPF 0 CILIATED EPITHELIAL CELLS/LPF NO ORGANISMS SEEN CULTURE RESULTS RARE NORMAL ORAL KIMBERLY Normal [facility] Comment on above: Performed By: #### E LEC #### [facility] ([id number]) [address], [address] [place] [address] M. pneumoniae DNA ELIZABETH+probe Ql (Unsp spec)on 02-24-2024 M PNEUMONIAE DNA PCR See Below Normal [facility] Comment on above: Result Comment: NOTE TEST [...] developed and its performance characteristics determined by [facility]. It has not been cleared or approved by the [place] Food and Drug Administration. This test was performed in a CLIA certified laboratory and is intended for clinical purposes. Performed By: [facility] [address] [place] [id number] [employer] Checker And Assembler: Eduardo Lindsay MD, PhD CLIA Number: [id number] SOURCE: Sputum Performed By: #### E LEC #### [facility] ([id number]) [address] [facility] [address] [place] [address] MAGNESIUMon 02-24-2024 Magnesium [Mass/Vol] 2.1 mg/dL Normal 1.8-2.6 [facility] Comment on above: Performed By: #### E LEC #### [facility] ([id number]) [address] [facility] [address] [place] [address] PHOSPHORUSon 02-24-2024 Phosphate [Mass/Vol] 4.6 mg/dL Normal 2.4-4.9 [facility] Comment on above: Performed By: #### E LEC #### [facility] ([id number]) [address] [address] [place] [address] Procalcitonin IA [Mass/Vol]o n 02-24-2024 PROCALCITONIN <0.05 Normal <0.05 [facility] Comment on above: Result Comment: NOTE <0.50 ng/mL - Low risk of severe sepsis and/or septic shock. <2.00 ng/mL - Recommend retesting within 6-24 hours. >2.00 ng/mL - High risk of sepsis and/or septic shock. Performed By: #### E LEC #### [facility] ([id number]) [address], [facility] [address] [place] [address] CBC AND AUTO DIFFon 02-23-20 24 Band form neutrophils/100 WBC (Bld) 1.0 % Normal [facility] Comment on above: Performed By: #### E LEC #### [facility] ([id number]) [address] [address] Erythrocyte distribution width (RBC) [Ratio] 18.2 % High 11.5-15.0 [facility] Comment on above: Performed By: #### E LEC #### [facility] ([id number]) [address] [address] Hematocrit (Bld) [Volume fraction] 35.2 % Normal 35-47 [facility] Comment on above: Performed By: #### E LEC #### [facility] ([id number]) [address] [address] Hemoglobin (Bld) [Mass/Vol] 11.3 g/dL Low 11.7-15.5 [facility] Comment on above: Performed By: #### E LEC #### [facility] ([id number]) [address] [address] HYPOCHROMIA 2+ Abnormal NONE [facility] Comment on above: Performed By: #### E LEC #### [facility] ([id number]) [address] [address] Lymphocytes (Bld) [#/Vol] 2.6 10*3/uL Normal 1.0-3.5 [facility] Comment on above: Performed By: #### E LEC #### [facility] ([id number]) [address] [address] [place] [address] Lymphocytes/100 WBC (Bld) 16.0 % Normal [facility] Comment on above: Performed By: #### E LEC #### [facility] ([id number]) [address], [address] [place] [address] MCH (RBC) [Entitic mass] 24.8 pg Low 27-34 [facility] Comment on above: Performed By: #### E LEC #### [facility] ([id number]) [address] [place] [address] MCHC (RBC) [Mass/Vol] 32.2 g/dL Normal 32-36 [facility] Comment on above: Performed By: #### E LEC #### [facility] ([id number]) [address] [place] [address] MCV (RBC) [Entitic vol] 77 fL Low 80-100 [facility] Comment on above: Performed By: #### E LEC #### [facility] ([id number]) [address], [address] [place] [address] Monocytes (Bld) [#/Vol] 1.0 10*3/uL High 0-0.9 [facility] Comment on above: Performed By: #### E LEC #### [facility] ([id number]) [address] [place] [address] Monocytes/100 WBC (Bld) 6.0 % Normal [facility] Comment on above: Performed By: #### E LEC #### [facility] ([id number]) [address], [address] [place] [address] MYELOCYTE 3.0 % Normal [facility] Comment on above: Performed By: #### E LEC #### [facility] ([id number]) [address], [address] [place] [address] Neutrophils (Bld) [#/Vol] 12.2 10*3/uL High 1.5-6.6 [facility] Comment on above: Performed By: #### E LEC #### [facility] ([id number]) [address], [address] [place] [address] Platelet mean volume (Bld) [Entitic vol] 6.7 fL Low 7-12 [facility] Comment on above: Performed By: #### E LEC #### [facility] ([id number]) [address], [address] [place] [address] Platelets (Bld) [#/Vol] 493 10*3/uL High 150-450 [facility] Comment on above: Performed By: #### E LEC #### [facility] ([id number]) [address] [place] [address] RBC COUNT 4.57 X10E12/L Normal 3.80-5.20 [facility] Comment on above: Performed By: #### E LEC #### [facility] ([id number]) [address], [address] [place] [address] SEG NEUTROPHIL 74.0 % Normal [facility] Comment on above: Performed By: #### E LEC #### [facility] ([id number]) [address] [place] [address] WBC (Bld) [#/Vol] 16.3 10*3/uL High 4.0-11.0 [facility] Comment on above: Performed By: #### E LEC #### [facility] ([id number]) [address], [address] [place] [address] CK [Catalytic activity/Vol]o n 02-23-2024 CPK <10 Low 24-170 [facility] Comment on above: Performed By: #### E LEC #### [facility] ([id number]) [address], [address] [place] [address] COMPREHENSIVE METABOLIC PANE Harsha 02-23-2024 Albumin [Mass/Vol] 2.9 g/dL Low 3.2-5.3 [facility] Comment on above: Performed By: #### E LEC #### [facility] ([id number]) [address] [place] [address] ALP [Catalytic activity/Vol] 69 U/L Normal 39-130 [facility] Comment on above: Performed By: #### E LEC #### [facility] ([id number]) [address] [place] [address] ALT [Catalytic activity/Vol] 7 U/L Normal 0-31 [facility] Comment on above: Performed By: #### E LEC #### [facility] ([id number]) [address] [place] [address] Anion gap [Moles/Vol] 7 mmol/L Normal 5-15 [facility] Comment on above: Performed By: #### E LEC #### [facility] ([id number]) [address] [place] [address] AST [Catalytic activity/Vol] 11 U/L Normal 0-41 [facility] Comment on above: Performed By: #### E LEC #### [facility] ([id number]) [address] [place] [address] Bilirubin [Mass/Vol] 0.2 mg/dL Low 0.3-1.2 [facility] Comment on above: Performed By: #### E LEC #### [facility] ([id number]) [address] [place] [address] Calcium [Mass/Vol] 9.4 mg/dL Normal 8.5-10.5 [facility] Comment on above: Performed By: #### E LEC #### [facility] ([id number]) [address] [place] [address] Chloride [Moles/Vol] 103 mmol/L Normal 98-109 [facility] Comment on above: Performed By: #### E LEC #### [facility] ([id number]) [address] [place] [address] CO2 [Moles/Vol] 31 mmol/L Normal 22-32 [facility] Comment on above: Performed By: #### E LEC #### [facility] ([id number]) [address] [address] [place] [address] Creatinine [Mass/Vol] 0.97 mg/dL Normal 0.40-1.00 [facility] Comment on above: Result Comment: METH OD TRACEABLE TO IDMS STANDARD Performed By: #### E LEC #### [facility] ([id number]) [address] [address] [place] [address] GFR/1.73 sq M.predicted among non-blacks MDRD (S/P/Bld) [Vol rate/Area] 60 mL/min/{1.73_m2} Normal >59 [facility] Comment on above: Result Comment: Reported eGFR is based on the CKD-EPI 2020 equation that does not use a race coefficient. Performed By: #### E LEC #### [facility] ([id number]) [address] [place] [address] Glucose [Mass/Vol] 86 mg/dL Normal 65-99 [facility] Comment on above: Performed By: #### E LEC #### [facility] ([id number]) [address] [address] [place] [address] Potassium [Moles/Vol] 4.6 mmol/L Normal 3.5-5.0 [facility] Comment on above: Performed By: #### E LEC #### [facility] ([id number]) [address] [place] [address] Protein [Mass/Vol] 6.6 g/dL Normal 6.0-8.0 [facility] Comment on above: Performed By: #### E LEC #### [facility] ([id number]) [address] [place] [address] Sodium [Moles/Vol] 141 mmol/L Normal 134-146 [facility] Comment on above: Performed By: #### E LEC #### [facility] ([id number]) [address] [place] [address] Urea nitrogen [Mass/Vol] 31 mg/dL High 5-27 [facility] Comment on above: Performed By: #### E LEC #### [facility] ([id number]) [address] [place] [address] FL SWALLOW MOTILITY FUNCTION on 02-23-2024 FL [...] León Parikh on 02/23/2024 8:44 AM Normal [facility] MAGNESIUMon 02-23-2024 Magnesium [Mass/Vol] 1.7 mg/dL Low 1.8-2.6 [facility] Comment on above: Performed By: #### E LEC #### [facility] ([id number]) [address] [place] [address] PHOSPHORUSon 02-23-2024 Phosphate [Mass/Vol] 3.8 mg/dL Normal 2.4-4.9 [facility] Comment on above: Performed By: #### E LEC #### [facility] ([id number]) [address], [facility] [address] [place] [address] CBC AND AUTO DIFFon 02-22-20 Erythrocyte distribution width (RBC) [Ratio] 18.6 % High 11.5-15.0 [facility] Comment on above: Performed By: #### E LEC #### [facility] ([id number]) [address], [address] [place] [address] Hematocrit (Bld) [Volume fraction] 34.2 % Low 35-47 [facility] Comment on above: Performed By: #### E LEC #### [facility] ([id number]) [address] [place] [address] Hemoglobin (Bld) [Mass/Vol] 11.0 g/dL Low 11.7-15.5 [facility] Comment on above: Performed By: #### E LEC #### [facility] ([id number]) [address] [place] [address] HYPOCHROMIA 2+ Abnormal NONE [facility] Comment on above: Performed By: #### E LEC #### [facility] ([id number]) [address] [address] [place] [address] Lymphocytes (Bld) [#/Vol] 2.6 10*3/uL Normal 1.0-3.5 [facility] Comment on above: Performed By: #### E LEC #### [facility] ([id number]) [address] [place] [address] Lymphocytes/100 WBC (Bld) 17.0 % Normal [facility] Comment on above: Performed By: #### E LEC #### [facility] ([id number]) [address] [place] [address] MCH (RBC) [Entitic mass] 24.5 pg Low 27-34 [facility] Comment on above: Performed By: #### E LEC #### [facility] ([id number]) [address] [place] [address] MCHC (RBC) [Mass/Vol] 32.0 g/dL Normal 32-36 [facility] Comment on above: Performed By: #### E LEC #### [facility] ([id number]) [address] [place] [address] MCV (RBC) [Entitic vol] 76 fL Low 80-100 [facility] Comment on above: Performed By: #### E LEC #### [facility] ([id number]) [address] [place] [address] Monocytes (Bld) [#/Vol] 0.6 10*3/uL Normal 0-0.9 [facility] Comment on above: Performed By: #### E LEC #### [facility] ([id number]) [address] [place] [address] Monocytes/100 WBC (Bld) 4.0 % Normal [facility] Comment on above: Performed By: #### E LEC #### [facility] ([id number]) [address] [place] [address] Neutrophils (Bld) [#/Vol] 12.0 10*3/uL High 1.5-6.6 [facility] Comment on above: Performed By: #### E LEC #### [facility] ([id number]) [address] [place] [address] Platelet mean volume (Bld) [Entitic vol] 6.6 fL Low 7-12 [facility] Comment on above: Performed By: #### E LEC #### [facility] ([id number]) [address] [place] [address] Platelets (Bld) [#/Vol] 444 10*3/uL Normal 150-450 [facility] Comment on above: Performed By: #### E LEC #### [facility] ([id number]) [address] [place] [address] RBC COUNT 4.47 X10E12/L Normal 3.80-5.20 [facility] Comment on above: Performed By: #### E LEC #### [facility] ([id number]) [address] [place] [address] SEG NEUTROPHIL 79.0 % Normal [facility] Comment on above: Performed By: #### E LEC #### [facility] ([id number]) [address], [address] [place] [address] WBC (Bld) [#/Vol] 15.2 10*3/uL High 4.0-11.0 [facility] Comment on above: Performed By: #### E LEC #### [facility] ([id number]) [address], [address] [place] [address] COMPREHENSIVE METABOLIC PANE Harsha 02-22-2024 Albumin [Mass/Vol] 2.9 g/dL Low 3.2-5.3 [facility] Comment on above: Performed By: #### E LEC #### [facility] ([id number]) [address], [address] [place] [address] ALP [Catalytic activity/Vol] 80 U/L Normal 39-130 [facility] Comment on above: Performed By: #### E LEC #### [facility] ([id number]) [address], [address] [place] [address] ALT [Catalytic activity/Vol] 9 U/L Normal 0-31 [facility] Comment on above: Performed By: #### E LEC #### [facility] ([id number]) [address], [address] [place] [address] Anion gap [Moles/Vol] 8 mmol/L Normal 5-15 [facility] Comment on above: Performed By: #### E LEC #### [facility] ([id number]) [address], [address] [place] [address] AST [Catalytic activity/Vol] 12 U/L Normal 0-41 [facility] Comment on above: Performed By: #### E LEC #### [facility] ([id number]) [address], [address] [place] [address] Bilirubin [Mass/Vol] 0.2 mg/dL Low 0.3-1.2 [facility] Comment on above: Performed By: #### E LEC #### [facility] ([id number]) [address], [address] [place] [address] Calcium [Mass/Vol] 9.2 mg/dL Normal 8.5-10.5 [facility] Comment on above: Performed By: #### E LEC #### [facility] ([id number]) [address], [address] [place] [address] Chloride [Moles/Vol] 103 mmol/L Normal 98-109 [facility] Comment on above: Performed By: #### E LEC #### [facility] ([id number]) [address], [address] [place] [address] CO2 [Moles/Vol] 32 mmol/L Normal 22-32 [facility] Comment on above: Performed By: #### E LEC #### [facility] ([id number]) [address], [address] [place] [address] Creatinine [Mass/Vol] 0.94 mg/dL Normal 0.40-1.00 [facility] Comment on above: Result Comment: METH OD TRACEABLE TO IDMS STANDARD Performed By: #### E LEC #### [facility] ([id number]) [address], [address] [place] [address] GFR/1.73 sq M.predicted among non-blacks MDRD (S/P/Bld) [Vol rate/Area] 62 mL/min/{1.73_m2} Normal >59 [facility] Comment on above: Result Comment: Reported eGFR is based on the CKD-EPI 2020 equation that does not use a race coefficient. Performed By: #### E LEC #### [facility] ([id number]) [address], [address] [place] [address] Glucose [Mass/Vol] 128 mg/dL High 65-99 [facility] Comment on above: Performed By: #### E LEC #### [facility] ([id number]) [address], [address] [place] [address] Potassium [Moles/Vol] 4.2 mmol/L Normal 3.5-5.0 [facility] Comment on above: Performed By: #### E LEC #### [facility] ([id number]) [address], [address] [place] [address] Protein [Mass/Vol] 6.9 g/dL Normal 6.0-8.0 [facility] Comment on above: Performed By: #### E LEC #### [facility] ([id number]) [address], [address] [place] [address] Sodium [Moles/Vol] 143 mmol/L Normal 134-146 [facility] Comment on above: Performed By: #### E LEC #### [facility] ([id number]) [address], [address] [place] [address] Urea nitrogen [Mass/Vol] 29 mg/dL High -27 [facility] Comment on above: Performed By: #### E LEC #### [facility] ([id number]) [address], [address] [place] [address] MAGNESIUMon 02-22-2024 Magnesium [Mass/Vol] 2.0 mg/dL Normal 1.8-2.6 [facility] Comment on above: Performed By: #### E LEC #### [facility] ([id number]) [address] [place] [address] PHOSPHORUSon 02-22-2024 Phosphate [Mass/Vol] 3.3 mg/dL Normal 2.4-4.9 [facility] Comment on above: Performed By: #### E LEC #### [facility] ([id number]) [address], [address] [place] [address] C DIFFICILE BY PCRon 024 C. difficile toxin genes ELIZABETH+probe Ql (Stl) TOXIGENIC C DIFF Negative (qualifier value) 027 NAP1 Negative (qualifier value) Normal PRNEG [facility] Comment on above: Performed By: #### E LEC #### [facility] ([id number]) [address], [address] [place] [address] CBC AND AUTO DIFFon 02-21-20 24 ABSOLUTE BASOPHIL 0.0 X10E9/L Normal 0.0-0.2 [facility] Comment on above: Performed By: #### E LEC #### [facility] ([id number]) [address], [address] [place] [address] ABSOLUTE NEUTROPHIL 10.9 X10E9/L High 1.5-6.6 [facility] Comment on above: Performed By: #### E LEC #### [facility] ([id number]) [address] [place] [address] Basophils/100 WBC (Bld) 0.2 % Normal [facility] Comment on above: Performed By: #### E LEC #### [facility] ([id number]) [address], [address] [place] [address] Eosinophils (Bld) [#/Vol] 0.0 10*3/uL Normal 0.0-0.4 [facility] Comment on above: Performed By: #### E LEC #### [facility] ([id number]) [address], [address] [place] [address] Eosinophils/100 WBC (Bld) 0.0 % Normal [facility] Comment on above: Performed By: #### E LEC #### [facility] ([id number]) [address], [address] [place] [address] Erythrocyte distribution width (RBC) [Ratio] 18.0 % High 11.5-15.0 [facility] Comment on above: Performed By: #### E LEC #### [facility] ([id number]) [address], [address] [place] [address] Hematocrit (Bld) [Volume fraction] 32.3 % Low 35-47 [facility] Comment on above: Performed By: #### E LEC #### [facility] ([id number]) [address], [address] [place] [address] Hemoglobin (Bld) [Mass/Vol] 10.5 g/dL Low 11.7-15.5 [facility] Comment on above: Performed By: #### E LEC #### [facility] ([id number]) [address], [address] [place] [address] Lymphocytes (Bld) [#/Vol] 2.1 10*3/uL Normal 1.0-3.5 [facility] Comment on above: Performed By: #### E LEC #### [facility] ([id number]) [address], [address] [place] [address] Lymphocytes/100 WBC (Bld) 14.7 % Normal [facility] Comment on above: Performed By: #### E LEC #### [facility] ([id number]) [address], [address] [place] [address] MCH (RBC) [Entitic mass] 24.6 pg Low 27-34 [facility] Comment on above: Performed By: #### E LEC #### [facility] ([id number]) [address], [address] [place] [address] MCHC (RBC) [Mass/Vol] 32.5 g/dL Normal 32-36 [facility] Comment on above: Performed By: #### E LEC #### [facility] ([id number]) [address], [address] [place] [address] MCV (RBC) [Entitic vol] 76 fL Low 80-100 [facility] Comment on above: Performed By: #### E LEC #### [facility] ([id number]) [address], [address] [place] [address] Monocytes (Bld) [#/Vol] 1.3 10*3/uL High 0-0.9 [facility] Comment on above: Performed By: #### E LEC #### [facility] ([id number]) [address], [address] [place] [address] Monocytes/100 WBC (Bld) 9.2 % Normal [facility] Comment on above: Performed By: #### E LEC #### [facility] ([id number]) [address], [address] [place] [address] Neutrophils/100 WBC (Bld) 75.9 % Normal [facility] Comment on above: Performed By: #### E LEC #### [facility] ([id number]) [address], [address] [place] [address] Platelet mean volume (Bld) [Entitic vol] 6.7 fL Low 7-12 [facility] Comment on above: Performed By: #### E LEC #### [facility] ([id number]) [address], [address] [place] [address] Platelets (Bld) [#/Vol] 448 10*3/uL Normal 150-450 [facility] Comment on above: Performed By: #### E LEC #### [facility] ([id number]) [address], [address] [place] [address] RBC COUNT 4.27 X10E12/L Normal 3.80-5.20 [facility] Comment on above: Performed By: #### E LEC #### [facility] ([id number]) [address], [address] [place] [address] WBC (Bld) [#/Vol] 14.4 10*3/uL High 4.0-11.0 [facility] Comment on above: Performed By: #### E LEC #### [facility] ([id number]) [address], [address] [place] [address] COMPREHENSIVE METABOLIC PANE Harsha 02-21-2024 Albumin [Mass/Vol] 2.9 g/dL Low 3.2-5.3 [facility] Comment on above: Performed By: #### E LEC #### [facility] ([id number]) [address], [address] [place] [address] ALP [Catalytic activity/Vol] 81 U/L Normal 39-130 [facility] Comment on above: Performed By: #### E LEC #### [facility] ([id number]) [address], [address] [place] [address] ALT [Catalytic activity/Vol] 4 U/L Normal 0-31 [facility] Comment on above: Performed By: #### E LEC #### [facility] ([id number]) [address], [address] [place] [address] Anion gap [Moles/Vol] 7 mmol/L Normal 5-15 [facility] Comment on above: Performed By: #### E LEC #### [facility] ([id number]) [address], [address] [place] [address] AST [Catalytic activity/Vol] 9 U/L Normal 0-41 [facility] Comment on above: Performed By: #### E LEC #### [facility] ([id number]) [address], [address] [place] [address] Bilirubin [Mass/Vol] 0.2 mg/dL Low 0.3-1.2 [facility] Comment on above: Performed By: #### E LEC #### [facility] ([id number]) [address], [address] [place] [address] Calcium [Mass/Vol] 8.9 mg/dL Normal 8.5-10.5 [facility] Comment on above: Performed By: #### E LEC #### [facility] ([id number]) [address], [address] [place] [address] Chloride [Moles/Vol] 102 mmol/L Normal 98-109 [facility] Comment on above: Performed By: #### E LEC #### [facility] ([id number]) [address], [address] [place] [address] CO2 [Moles/Vol] 34 mmol/L High 22-32 [facility] Comment on above: Performed By: #### E LEC #### [facility] ([id number]) [address], [address] [place] [address] Creatinine [Mass/Vol] 1.09 mg/dL High 0.40-1.00 [facility] Comment on above: Result Comment: METH OD TRACEABLE TO IDMS STANDARD Performed By: #### E LEC #### [facility] ([id number]) [address] [place] [address] GFR/1.73 sq M.predicted among non-blacks MDRD (S/P/Bld) [Vol rate/Area] 52 mL/min/{1.73_m2} Low >59 [facility] Comment on above: Result Comment: Reported eGFR is based on the CKD-EPI 2020 equation that does not use a race coefficient. Performed By: #### E LEC #### [facility] ([id number]) [address] [place] [address] Glucose [Mass/Vol] 150 mg/dL High 65-99 [facility] Comment on above: Performed By: #### E LEC #### [facility] ([id number]) [address], [address] [place] [address] Potassium [Moles/Vol] 4.0 mmol/L Normal 3.5-5.0 [facility] Comment on above: Performed By: #### E LEC #### [facility] ([id number]) [address], [address] [place] [address] Protein [Mass/Vol] 6.8 g/dL Normal 6.0-8.0 [facility] Comment on above: Performed By: #### E LEC #### [facility] ([id number]) [address], [address] [place] [address] Sodium [Moles/Vol] 143 mmol/L Normal 134-146 [facility] Comment on above: Performed By: #### E LEC #### [facility] ([id number]) [address], [address] [place] [address] Urea nitrogen [Mass/Vol] 25 mg/dL Normal 5-27 [facility] Comment on above: Performed By: #### E LEC #### [facility] ([id number]) [address] [place] [address] GI PANELon 02-21-2024 Gastrointestinal pathogens DNA and [...] SAPOVIRUS Not detected (qualifier value) Normal NDET [facility] Comment on above: Performed By: #### E LEC #### [facility] ([id number]) [address], [address] [place] [address] MAGNESIUMon 02-21-2024 Magnesium [Mass/Vol] 2.4 mg/dL Normal 1.8-2.6 [facility] Comment on above: Performed By: #### E LEC #### [facility] ([id number]) [address] [place] [address] PHOSPHORUSon 02-21-2024 Phosphate [Mass/Vol] 3.7 mg/dL Normal 2.4-4.9 [facility] Comment on above: Performed By: #### E LEC #### [facility] ([id number]) [address] [place] [address] CBC AND AUTO DIFFon 02-20-20 ABSOLUTE BASOPHIL 0.0 X10E9/L Normal 0.0-0.2 [facility] Comment on above: Performed By: #### E LEC #### [facility] ([id number]) [address], [address] [place] [address] ABSOLUTE NEUTROPHIL 10.4 X10E9/L High 1.5-6.6 [facility] Comment on above: Performed By: #### E LEC #### [facility] ([id number]) [address], [address] [place] [address] Basophils/100 WBC (Bld) 0.1 % Normal [facility] Comment on above: Performed By: #### E LEC #### [facility] ([id number]) [address], [address] [place] [address] Eosinophils (Bld) [#/Vol] 0.0 10*3/uL Normal 0.0-0.4 [facility] Comment on above: Performed By: #### E LEC #### [facility] ([id number]) [address], [address] [place] [address] Eosinophils/100 WBC (Bld) 0.0 % Normal [facility] Comment on above: Performed By: #### E LEC #### [facility] ([id number]) [address], [address] [place] [address] Erythrocyte distribution width (RBC) [Ratio] 18.1 % High 11.5-15.0 [facility] Comment on above: Performed By: #### E LEC #### [facility] ([id number]) [address], [address] [place] [address] Hematocrit (Bld) [Volume fraction] 33.6 % Low 35-47 [facility] Comment on above: Performed By: #### E LEC #### [facility] ([id number]) [address], [address] [place] [address] Hemoglobin (Bld) [Mass/Vol] 11.2 g/dL Low 11.7-15.5 [facility] Comment on above: Performed By: #### E LEC #### [facility] ([id number]) [address], [address] [place] [address] Lymphocytes (Bld) [#/Vol] 1.3 10*3/uL Normal 1.0-3.5 [facility] Comment on above: Performed By: #### E LEC #### [facility] ([id number]) [address], [address] [place] [address] Lymphocytes/100 WBC (Bld) 10.6 % Normal [facility] Comment on above: Performed By: #### E LEC #### [facility] ([id number]) [address] [place] [address] MCH (RBC) [Entitic mass] 25.1 pg Low 27-34 [facility] Comment on above: Performed By: #### E LEC #### [facility] ([id number]) [address] [place] [address] MCHC (RBC) [Mass/Vol] 33.3 g/dL Normal 32-36 [facility] Comment on above: Performed By: #### E LEC #### [facility] ([id number]) [address], [address] [place] [address] MCV (RBC) [Entitic vol] 76 fL Low 80-100 [facility] Comment on above: Performed By: #### E LEC #### [facility] ([id number]) [address], [address] [place] [address] Monocytes (Bld) [#/Vol] 0.5 10*3/uL Normal 0-0.9 [facility] Comment on above: Performed By: #### E LEC #### [facility] ([id number]) [address] [place] [address] Monocytes/100 WBC (Bld) 3.7 % Normal [facility] Comment on above: Performed By: #### E LEC #### [facility] ([id number]) [address] [place] [address] Neutrophils/100 WBC (Bld) 85.6 % Normal [facility] Comment on above: Performed By: #### E LEC #### [facility] ([id number]) [address] [place] [address] Platelet mean volume (Bld) [Entitic vol] 6.9 fL Low 7-12 [facility] Comment on above: Performed By: #### E LEC #### [facility] ([id number]) [address] [place] [address] Platelets (Bld) [#/Vol] 425 10*3/uL Normal 150-450 [facility] Comment on above: Performed By: #### E LEC #### [facility] ([id number]) [address] [place] [address] RBC COUNT 4.45 X10E12/L Normal 3.80-5.20 [facility] Comment on above: Performed By: #### E LEC #### [facility] ([id number]) [address] [place] [address] WBC (Bld) [#/Vol] 12.1 10*3/uL High 4.0-11.0 [facility] Comment on above: Performed By: #### E LEC #### [facility] ([id number]) [address], [address] [place] [address] COMPREHENSIVE METABOLIC PANE Harsha 02-20-2024 Albumin [Mass/Vol] 3.0 g/dL Low 3.2-5.3 [facility] Comment on above: Performed By: #### E LEC #### [facility] ([id number]) [address], [address] [place] [address] ALP [Catalytic activity/Vol] 81 U/L Normal 39-130 [facility] Comment on above: Performed By: #### E LEC #### [facility] ([id number]) [address] [place] [address] ALT [Catalytic activity/Vol] U/L Normal 0-31 [facility] Comment on above: Performed By: #### E LEC #### [facility] ([id number]) [address] [place] [address] Anion gap [Moles/Vol] 10 mmol/L Normal 5-15 [facility] Comment on above: Performed By: #### E LEC #### [facility] ([id number]) [address] [place] [address] AST [Catalytic activity/Vol] 9 U/L Normal 0-41 [facility] Comment on above: Performed By: #### E LEC #### [facility] ([id number]) [address] [place] [address] Bilirubin [Mass/Vol] 0.2 mg/dL Low 0.3-1.2 [facility] Comment on above: Performed By: #### E LEC #### [facility] ([id number]) [address] [place] [address] Calcium [Mass/Vol] 9.1 mg/dL Normal 8.5-10.5 [facility] Comment on above: Performed By: #### E LEC #### [facility] ([id number]) [address] [place] [address] Chloride [Moles/Vol] 97 mmol/L Low 98-109 [facility] Comment on above: Performed By: #### E LEC #### [facility] ([id number]) [address] [place] [address] CO2 [Moles/Vol] 33 mmol/L High 22-32 [facility] Comment on above: Performed By: #### E LEC #### [facility] ([id number]) [address] [place] [address] Creatinine [Mass/Vol] 1.16 mg/dL High 0.40-1.00 [facility] Comment on above: Result Comment: METH OD TRACEABLE TO IDMS STANDARD Performed By: #### E LEC #### [facility] ([id number]) [address] [place] [address] GFR/1.73 sq M.predicted among non-blacks MDRD (S/P/Bld) [Vol rate/Area] 48 mL/min/{1.73_m2} Low >59 [facility] Comment on above: Result Comment: Reported eGFR is based on the CKD-EPI 2020 equation that does not use a race coefficient. Performed By: #### E LEC #### [facility] ([id number]) [address] [place] [address] Glucose [Mass/Vol] 171 mg/dL High 65-99 [facility] Comment on above: Performed By: #### E LEC #### [facility] ([id number]) [address] [place] [address] Potassium [Moles/Vol] 3.6 mmol/L Normal 3.5-5.0 [facility] Comment on above: Performed By: #### E LEC #### [facility] ([id number]) [address], [address] [place] [address] Protein [Mass/Vol] 7.1 g/dL Normal 6.0-8.0 [facility] Comment on above: Performed By: #### E LEC #### [facility] ([id number]) [address] [place] [address] Sodium [Moles/Vol] 140 mmol/L Normal 134-146 [facility] Comment on above: Performed By: #### E LEC #### [facility] ([id number]) [address] [place] [address] Urea nitrogen [Mass/Vol] 16 mg/dL Normal 5-27 [facility] Comment on above: Performed By: #### E LEC #### [facility] ([id number]) [address] [place] [address] MAGNESIUMon 02-20-2024 Magnesium [Mass/Vol] 2.8 mg/dL High 1.8-2.6 [facility] Comment on above: Performed By: #### E LEC #### [facility] ([id number]) [address] [place] [address] Magnesium [Mass/Vol] 1.5 mg/dL Low 1.8-2.6 [facility] Comment on above: Performed By: #### E LEC #### [facility] ([id number]) [address] [place] [address] PHOSPHORUSon 02-20-2024 Phosphate [Mass/Vol] 3.6 mg/dL Normal 2.4-4.9 [facility] Comment on above: Performed By: #### E LEC #### [facility] ([id number]) [address] [place] [address] POTASSIUMon 02-20-2024 Potassium [Moles/Vol] 4.1 mmol/L Normal 3.5-5.0 [facility] Comment on above: Performed By: #### E LEC #### [facility] ([id number]) [address] [place] [address] BASIC METABOLIC PANLon 02-18 Anion gap [Moles/Vol] 10 mmol/L Normal 5-15 [facility] Comment on above: Performed By: #### C SRINI, BMP, , 2776-10 #### [facility] ([id number]) [address] [place] [address] Calcium [Mass/Vol] 9.5 mg/dL Normal 8.5-10.5 [facility] Comment on above: Performed By: #### C SRINI, BMP, , 2776-10 #### [facility] ([id number]) [address] [place] [address] Chloride [Moles/Vol] 96 mmol/L Low 98-109 [facility] Comment on above: Performed By: #### Timmy MILLIGAN, BMP, , 2776-10 #### [facility] ([id number]) [address] [place] [address] CO2 [Moles/Vol] 32 mmol/L Normal 22-32 [facility] Comment on above: Performed By: #### Timmy MILLIGAN, BMP, , 2776-10 #### [facility] ([id number]) [address] [place] [address] Creatinine [Mass/Vol] 1.10 mg/dL High 0.40-1.00 [facility] Comment on above: Result Comment: METH OD TRACEABLE TO IDMS STANDARD Performed By: #### C SRINI, BMP, , 2776-10 #### [facility] ([id number]) [address] [place] [address] GFR/1.73 sq M.predicted among non-blacks MDRD (S/P/Bld) [Vol rate/Area] 51 mL/min/{1.73_m2} Low >59 [facility] Comment on above: Result Comment: Reported eGFR is based on the CKD-EPI 2020 equation that does not use a race coefficient. Performed By: #### C SRINI, BMP, , 2776-10 #### [facility] ([id number]) [address] [place] [address] Glucose [Mass/Vol] 131 mg/dL High 65-99 [facility] Comment on above: Performed By: #### C BC, BMP, , 2776-10 #### [facility] ([id number]) [address], [facility] [address] [place] [address] Potassium [Moles/Vol] 3.9 mmol/L Normal 3.5-5.0 [facility] Comment on above: Performed By: #### Timmy MILLIGAN, SANTOSH, , 2776-10 #### [facility] ([id number]) [address], [facility] [address] [place] [address] Sodium [Moles/Vol] 138 mmol/L Normal 134-146 [facility] Comment on above: Performed By: #### C SRINI, BMP, , 2776-10 #### [facility] ([id number]) [address], [facility] [address] [place] [address] Urea nitrogen [Mass/Vol] 11 mg/dL Normal 5-27 [facility] Comment on above: Performed By: #### Timmy MILLIGAN, BMP, , 2776-10 #### [facility] ([id number]) [address] [place] [address] BLOOD CULTUREon 02-19-2024 Bacteria identified Aer cx Nom (Bld) SPECIMEN NOTES ONLY ANAEROBIC BOTTLE SENT CULTURE RESULTS NO GROWTH 5 DAYS Normal [facility] Comment on above: Performed By: #### E LEC #### [facility] ([id number]) [address] [place] [address] Bacteria identified Aer cx Nom (Bld) CULTURE RESULTS NO GROWTH 5 DAYS Normal [facility] CBC AND AUTO DIFFon 02-18- 24 ABSOLUTE BASOPHIL 0.0 X10E9/L Normal 0.0-0.2 [facility] Comment on above: Performed By: #### SANTOSH SALEEM, , 2776-10 #### [facility] ([id number]) [address], [address] [place] [address] ABSOLUTE NEUTROPHIL 10.1 X10E9/L High 1.5-6.6 [facility] Comment on above: Performed By: #### Timmy MILLIGAN [facility], , 2776-10 #### [facility] ([id number]) [address] [place] [address] Basophils/100 WBC (Bld) 0.3 % Normal [facility] Comment on above: Performed By: #### SANTOSH SALEEM, , 2776-10 #### [facility] ([id number]) [address], [address] [place] [address] Eosinophils (Bld) [#/Vol] 0.2 10*3/uL Normal 0.0-0.4 [facility] Comment on above: Performed By: #### SANTOSH SALEEM, , 2776-10 #### [facility] ([id number]) [address], [address] [place] [address] Eosinophils/100 WBC (Bld) 1.3 % Normal [facility] Comment on above: Performed By: #### SANTOSH SALEEM, , 2776-10 #### [facility] ([id number]) [address], [address] [place] [address] Erythrocyte distribution width (RBC) [Ratio] 18.1 % High 11.5-15.0 [facility] Comment on above: Performed By: #### SANTOSH SALEEM, , 2776-10 #### [facility] ([id number]) [address], [address] [place] [address] Hematocrit (Bld) [Volume fraction] 37.8 % Normal 35-47 [facility] Comment on above: Performed By: #### Timmy MILLIGAN, BMP, , 2776-10 #### [facility] ([id number]) [address], [facility] [address] [place] [address] Hemoglobin (Bld) [Mass/Vol] 12.1 g/dL Normal 11.7-15.5 [facility] Comment on above: Performed By: #### Timmy MILLIGAN, SANTOSH, , 2776-10 #### [facility] ([id number]) [address], [facility] [address] [place] [address] Lymphocytes (Bld) [#/Vol] 2.5 10*3/uL Normal 1.0-3.5 [facility] Comment on above: Performed By: #### Timmy MILLIGAN, BMP, , 2776-10 #### [facility] ([id number]) [address], [facility] [address] [place] [address] Lymphocytes/100 WBC (Bld) 17.9 % Normal [facility] Comment on above: Performed By: #### SANTOSH SALEEM, , 2776-10 #### [facility] ([id number]) [address], [address] [place] [address] MCH (RBC) [Entitic mass] 24.4 pg Low 27-34 [facility] Comment on above: Performed By: #### Timmy MILLIGAN, BMP, , 2776-10 #### [facility] ([id number]) [address], [address] [place] [address] MCHC (RBC) [Mass/Vol] 32.0 g/dL Normal 32-36 [facility] Comment on above: Performed By: #### Timmy BC, BMP, , 2776-10 #### [facility] ([id number]) [address], [address] [place] [address] MCV (RBC) [Entitic vol] 76 fL Low 80-100 [facility] Comment on above: Performed By: #### SANTOSH SALEEM, , 2776-10 #### [facility] ([id number]) [address], [address] [place] [address] Monocytes (Bld) [#/Vol] 1.4 10*3/uL High 0-0.9 [facility] Comment on above: Performed By: #### Timmy MILLIGAN, [facility], , 2776-10 #### [facility] ([id number]) [address], [address] [place] [address] Monocytes/100 WBC (Bld) 9.9 % Normal [facility] Comment on above: Performed By: #### Timmy MILLIGAN [facility], , 2776-10 #### [facility] ([id number]) [address], [address] [place] [address] Neutrophils/100 WBC (Bld) 70.6 % Normal [facility] Comment on above: Performed By: #### SANTOSH SALEEM, , 2776-10 #### [facility] ([id number]) [address], [address] [place] [address] Platelet mean volume (Bld) [Entitic vol] 6.9 fL Low 7-12 [facility] Comment on above: Performed By: #### Timmy MILLIGAN, SANTOSH, , 2776-10 #### [facility] ([id number]) [address], [address] [place] [address] Platelets (Bld) [#/Vol] 485 10*3/uL High 150-450 [facility] Comment on above: Performed By: #### SANTOSH SALEEM, 2776-10 #### [facility] ([id number]) [address], [address] [place] [address] RBC COUNT 4.95 X10E12/L Normal 3.80-5.20 [facility] Comment on above: Performed By: #### C SRINI, SANTOSH, , 2776-10 #### [facility] ([id number]) [address] [place] [address] WBC (Bld) [#/Vol] 14.2 10*3/uL High 4.0-11.0 [facility] Comment on above: Performed By: #### C SRINI, [facility], , 2776-10 #### [facility] ([id number]) [address], [address] [place] [address] CT ABDOMEN AND PELVIS W CONT on [...] Lehman MD on 02/19/2024 4:54 PM Normal [facility] LEGIONELLA URINE AGon 2023 L. pneumophila Ag IA Ql (U) LEGIONELLA URINE AG Negative (qualifier value) NEGATIVE FOR L.PNEUMOPHILA SEROGROUP 1 ANTIGEN Normal [facility] Comment on above: Performed By: #### E LEC #### [facility] ([id number]) [address], [address] [place] [address] Lactate (P timmy) [Moles/Vol]o n 02-19-2024 LACTATE W/REFLEX 1.7 mmol/L Normal 0.4-2.0 [facility] Comment on above: Result Comment: Result did not trigger repeat Lactate, re-order if needed. Performed By: #### C BC, BMP, 10354-4, 2777-1 #### [facility] ([id number]) [address] [place] [address] MRSA PCR NASALon 02-19-2024 MRSA DNA ELIZABETH+probe Ql (Unsp spec) Negative Normal NEG [facility] Comment on above: Performed By: #### E LEC #### [facility] ([id number]) [address], [address] [place] [address] Natriuretic peptide B [Mass/ Vol]on 02-19-2024 Natriuretic peptide B (Bld) [Mass/Vol] 38 pg/mL Normal <100.0 [facility] Comment on above: Performed By: #### C SANTOSH MILLIGAN, , 1 #### [facility] ([id number]) [address], [address] [place] [address] Nuclear Ab IA Ql (S)on 02-18 BRANDON Screen w/reflex Negative Normal NEG [facility] Comment on above: Result Comment: Testing performed using multiplex flow immunoassay. Eleven different antigens associated with systemic autoimmune diseases (dsDNA,Sm,Sm/AOC DIRECTOR INTELLIGENCE OFFICER,AOC DIRECTOR INTELLIGENCE OFFICER,Chromatin, SSA,SSB,Dacia-1,Scl70,Ribo P,Centromere B) are included in this screening test. Performed By: #### E LEC #### [facility] ([id number]) [address], [address] [place] [address] PROTIME AND INRon 02-19-2024 INR Coag (PPP) [Relative time] 1.1 {INR} Normal 0.8-1.1 [facility] Comment on above: Performed By: #### SANTOSH SALEEM, , 1 #### [facility] ([id number]) [address], [address] [place] [address] PT Coag (PPP) [Time] 13.1 s Normal 9.8-13.2 [facility] Comment on above: Performed By: #### SANTOSH SALEEM, , 277[address] #### [facility] ([id number]) [address], [address] [place] [address] Procalcitonin IA [Mass/Vol]o n 02-19-2024 PROCALCITONIN 0.10 ng/mL High <0.05 [facility] Comment on above: Result Comment: NOTE <0.50 ng/mL - Low risk of severe sepsis and/or septic shock. <2.00 ng/mL - Recommend retesting within 6-24 hours. >2.00 ng/mL - High risk of sepsis and/or septic shock. Performed By: #### E LEC #### [facility] ([id number]) [address], [address] [place] [address] Rheumatoid factor Nephelomet ry Qn (S)on 02-19-2024 RHEUMATOID FACTOR <10 Normal <20 [facility] Comment on above: Performed By: #### E LEC #### [facility] ([id number]) [address], [address] [place] [address] S PNEUMONIAE AG Uon 02-19-20 S. pneumoniae Ag Ql (U) Negative Normal NEG [facility] Comment on above: Performed By: #### E LEC #### [facility] ([id number]) [address], [address] [place] [address] SARS/FLU A+B/RSV by NAAT/Mol ecularon 02-19-2024 SARS/FLU [...] operators who are performing tests using either Photozeen or Ensighten systems and is limited to laboratories that [...] repeat. Fact Sheet for Healthcare Providers: https://www.fda.gov/media/ 490945/download Fact Sheet for Patients: https://www.fda.gov/media/ 696181/download Normal [facility] Comment on above: Performed By: #### E LEC #### [facility] ([id number]) [address] [place] [address] STREP PCR THROATon S. pyogenes DNA ELIZABETH+probe Nom (Unsp spec) STREP PCR THROAT Negative (qualifier value) Streptococcus Group A NOT detected by nucleic acid amplification. Normal [facility] Comment on above: Performed By: #### E LEC #### [facility] ([id number]) [address] [place] [address] Troponin I.cardiac High sens itivity method [Mass/Vol]on 02-19-2024 1 HOUR TROP I, HIGH SENSITIVITY 4 ng/L Normal <16 [facility] Comment on above: Performed By: #### E LEC #### [facility] ([id number]) [address] [place] [address], [address] [address] TROPONIN I, HIGH SENSITIVITY 4 ng/L Normal <16 [facility] Comment on above: Performed By: #### C BC, BMP, 93529-6, 2777-1 #### [facility] ([id number]) [address], [address] [place] [address] URINE CULTUREon 02-19-2024 Bacteria identified Cx Nom [...] Interpretation NATALIA Status DAPTOMYCIN S F Susceptible [facility] Comment on above: Performed By: #### E LEC #### [facility] ([id number]) [address], [address] [place] [address] URN MACROSCOPIC NURon 2023 BILIRUBIN OLVIN Negative Normal [facility] Comment on above: Performed By: #### E LEC #### [facility] ([id number]) [address], [address] [place] [address] BLOOD/HGB OLVIN Small Abnormal NEG [facility] Comment on above: Performed By: #### E LEC #### [facility] ([id number]) [address], [address] [place] [address] GLUCOSE OLVIN Negative Normal NEG [facility] Comment on above: Performed By: #### E LEC #### [facility] ([id number]) [address], [address] [place] [address] KETONES OLVIN Negative Normal NEG [facility] Comment on above: Performed By: #### E LEC #### [facility] ([id number]) [address] [place] [address] LEUKOCYTE ESTERASE OLVIN Small Abnormal NEG [facility] Comment on above: Performed By: #### E LEC #### [facility] ([id number]) [address], [address] [place] [address] NITRITE OLVIN Negative Normal NEG [facility] Comment on above: Performed By: #### E LEC #### [facility] ([id number]) [address] [place] [address] PH OLVIN 5.5 Normal 5.0-8.5 [facility] Comment on above: Performed By: #### E LEC #### [facility] ([id number]) [address] [place] [address] PROTEIN OLVIN Negative Normal NEG [facility] Comment on above: Performed By: #### E LEC #### [facility] ([id number]) [address] [place] [address] SPECIFIC GRAVITY OLVIN 1.015 Normal 1.003-1 .03 5 [facility] Comment on above: Performed By: #### E LEC #### [facility] ([id number]) [address] [place] [address] UROBILINOGEN OLVIN 0.2 eu/dL Normal <1.1 [facility] Comment on above: Performed By: #### E LEC #### [facility] ([id number]) [address] [place] [address] VENOUS BLOOD GASon 4 GUNJAN'S TEST Normal [facility] Comment on above: Performed By: #### E LEC #### [facility] ([id number]) [address] [place] [address] Base excess Calc (Bld) [Moles/Vol] 10.0 mmol/L High 0.0-2.0 [facility] Comment on above: Performed By: #### E LEC #### [facility] ([id number]) [address], [address] [place] [address] Body temperature 98.6 [degF] Normal 37.0 [facility] Comment on above: Performed By: #### E LEC #### [facility] ([id number]) [address] [place] [address] HCO3 (Bld) [Moles/Vol] 34.7 mmol/L High 20.0-24.0 [facility] Comment on above: Performed By: #### E LEC #### [facility] ([id number]) [address], [address] [place] [address] INSP. O2 CONC. 30 % Normal [facility] Comment on above: Performed By: #### E LEC #### [facility] ([id number]) [address], [address] [place] [address] Oxygen saturation in Blood 89.0 % Normal >80.0 [facility] Comment on above: Performed By: #### E LEC #### [facility] ([id number]) [address] [place] [address] OXYGEN SOURCE NC Normal [facility] Comment on above: Performed By: #### E LEC #### [facility] ([id number]) [address] [place] [address] PCO2, VENOUS 46.3 MMHG Normal 35-50 [facility] Comment on above: Performed By: #### E LEC #### [facility] ([id number]) [address] [place] [address] PH, VENOUS 7.482 High 7.320-7.42 0 [facility] Comment on above: Performed By: #### E LEC #### [facility] ([id number]) [address], [address] [place] [address] PO2, VENOUS 53 MMHG High 30-50 [facility] Comment on above: Performed By: #### E LEC #### [facility] ([id number]) [address], [address] [place] [address] SAMPLE SITE N/A Normal [facility] Comment on above: Performed By: #### E LEC #### [facility] ([id number]) [address] [place] [address] SAMPLE TYPE VENOUS Normal [facility] Comment on above: Performed By: #### E LEC #### [facility] ([id number]) [address], [address] [place] [address] XR CHEST 1 VWon 02-19-2024 XR CHEST [...] Hayes MD on 02/19/2024 3:46 PM Normal [facility] aPTT Coag (PPP) [Time]on aPTT Coag (Bld) [Time] 32 s Normal 26-37 Pr [facility] Comment on above: Performed By: #### C BC, BMP, 53702-2, 2777-1 #### [facility] ([id number]) [address], [address] [place] [address] Basic Metabolic Panelon 01-27 Creatinine Clr Calc Pharmacy 50.21 Normal [facility] Comment on above: Result Comment: PERF ORMED BY: [facility] [address] [place] [address] PATHOLOGIST PROCUREMENT COORDINATOR JORGE MURRELL M.D. Performed By: #### E SR, CBC, CMP, BNP #### [place] [address] [place] GFR/1.73 sq M.predicted MDRD (S/P/Bld) [Vol rate/Area] mL/min/{1.73_m2} Normal [facility] Comment on above: Performed By: #### E SR, CBC, CMP, BNP #### [place] [address] [place] Calcium [Mass/volume] in Ser um or PlasmaOrdered By: Lucho Grullon on 02-17-2024 Calcium [Mass/Vol] 8.5 mg/dL Low 8.6-10.3 [facility] Comment on above: Performed By: #### E SR, CBC, CMP, BNP #### [place] [address] [place] Carbon dioxide, total [Moles /volume] in Serum or PlasmaOrdered By: Lucho Grullon on 02-17-2024 CO2 [Moles/Vol] 29.4 mmol/L Normal 21.0-31.0 [facility] Comment on above: Performed By: #### E SR, CBC, CMP, BNP #### [place] [address] [place] Chloride [Moles/volume] in S kaveh or PlasmaOrdered By: Lucho Cappssosylvia on 02-17-2024 Chloride [Moles/Vol] 103 mmol/L Normal 98-107 [facility] Comment on above: Performed By: #### E SR, CBC, CMP, BNP #### [place] [address] [place] Creatinine [Mass/volume] in Serum or PlasmaOrdered By: Lucho Wassosylvia on 02-17-2024 Creatinine [Mass/Vol] 0.90 mg/dL Normal 0.60-1.20 [facility] Comment on above: Performed By: #### E SR, CBC, CMP, BNP #### [address] [place] [address] [place] Erythrocyte distribution wid th [Ratio] by Automated countOrdered By: Lucho Grullon on 02-17-2024 Erythrocyte distribution width (RBC) [Ratio] 18.2 % High 11.9-15.3 [facility] Comment on above: Performed By: #### E SR, CBC, CMP, BNP #### [facility] [address] [place] [address] [place] Erythrocytes [#/volume] in B lood by Automated countOrdered By: Lucho Grullon on 02-17-2024 RBC (Bld) [#/Vol] 4.25 10*6/uL Normal 3.60-5.00 [facility] Comment on above: Performed By: #### E SR, CBC, CMP, BNP #### [facility] [address] Glucose [Mass/volume] in Ser um or PlasmaOrdered By: Lucho Grullon on 02-17-2024 Glucose [Mass/Vol] 85 mg/dL Normal 70-100 [facility] Comment on above: ADA recommended refe rence rangeRandom Glucose Reference Range is dependent on time and content of last meal. Glucose of more than 200 mg/dL in a nonstressed, ambulatory subject supports the diagnosis of Diabetes Mellitus. Result Comment: Bromide om Glucose Reference Range is dependent on time and content of last meal. Glucose of more than 200 mg/dL in a nonstressed, ambulatory subject supports the diagnosis of Diabetes Mellitus. ADA recommended reference range Performed By: #### E SR, CBC, CMP, BNP #### [facility] [address] [place] [address] [place] Hematocrit [Volume Fraction] of Blood by Automated countOrdered By: Lucho Grullon on 02-17-2024 Hematocrit (Bld) [Volume fraction] 32.8 % Low 34.0-46.4 [facility] Comment on above: Performed By: #### E SR, CBC, CMP, BNP #### [facility] [address] [place] [address] [place] Hemoglobin [Mass/volume] in BloodOrdered By: Lucho Grullon on 02-17-2024 Hemoglobin (Bld) [Mass/Vol] 10.6 g/dL Low 11.8-15.4 [facility] Comment on above: Performed By: #### E SR, CBC, CMP, BNP #### [facility] [address] Hemogram CBC Without Diffon 02-17-2024 Mean Corpuscular HGB Conc 32.3 g/dL Normal 32.0-35.0 [facility] Comment on above: Performed By: #### E SR, CBC, CMP, BNP #### [facility] [address] WBC (Bld) [#/Vol] 10.9 10*3/uL Normal 3.8-11.6 [facility] Comment on above: Performed By: #### E SR, CBC, CMP, BNP #### [facility] [address] [place] [address] Leukocytes [#/volume] correc juma for nucleated erythrocytes in Blood by Automated counOrdered By: Lucho Grullon on 02-17-2024 WBC corrected for nucl RBC Auto (Bld) [#/Vol] 10.9 10*3/uL 3.8-11.6 [facility] MCH [Entitic mass] by Automa juma countOrdered By: Lucho Grullon on 02-17-2024 MCH (RBC) [Entitic mass] 24.9 pg Normal 24.7-34.3 [facility] Comment on above: Performed By: #### E SR, CBC, CMP, BNP #### [facility] [address] [place] [address] MCHC Auto (RBC) [Mass/Vol]Or dered By: Lucho Grullon on 02-17-2024 MCHC (RBC) [Mass/Vol] 32.3 g/dL 32.0-35.0 [facility] MCV [Entitic volume] by Auto mated countOrdered By: Lucho Grullon on 02-17-2024 MCV (RBC) [Entitic vol] 77.2 fL Low 80-100 [facility] Comment on above: Performed By: #### E SR, CBC, CMP, BNP #### [address] No Panel InformationOrdered By: Juneharini Jaquelinsylvia on 02-17-2024 Estimated GFR (CKD-EPI) > 60.0 mL/Min [facility] Creatinine Clearance (Chem 50.21 [facility] Platelet mean volume [Entiti c volume] in Blood by Automated countOrdered By: Juneharini Jaquelinsylvia on 02-17-2024 Platelet mean volume (Bld) [Entitic vol] 6.9 fL Normal 6.3-10.7 [facility] Comment on above: Result Comment: PERF ORMED BY: [place] [address] PATHOLOGIST PROCUREMENT COORDINATOR JORGE MURRELL M.D. Performed By: #### E SR, CBC, CMP, BNP #### [address] Platelets [#/volume] in Bloo d by Automated countOrdered By: Juneharini Jaquelinsylvia on 02-17-2024 Platelets (Bld) [#/Vol] 370 10*3/uL Normal 150-450 [facility] Comment on above: Performed By: #### E SR, CBC, CMP, BNP #### [address] Potassium [Moles/volume] in Serum or PlasmaOrdered By: Juneharini Génesismariza on 02-17-2024 Potassium [Moles/Vol] 4.2 mmol/L Normal 3.5-5.1 [facility] Comment on above: Performed By: #### E SR, CBC, CMP, BNP #### [address] Serum or plasma anion gap de terminationOrdered By: Juneharini Jaquelinsylvia on 02-17-2024 Anion gap [Moles/Vol] 10.8 mmol/L Normal 6.0-15.0 [facility] Comment on above: Performed By: #### E SR, CBC, CMP, BNP #### [address] Sodium [Moles/volume] in Ser um or PlasmaOrdered By: Juneharini Génesismariza on 02-17-2024 Sodium [Moles/Vol] 139 mmol/L Normal 136-145 [facility] Comment on above: Performed By: #### E SR, CBC, CMP, BNP #### [address] Urea nitrogen [Mass/volume] in Serum or PlasmaOrdered By: Lucho Génesismariza on 02-17-2024 Urea nitrogen [Mass/Vol] 8 mg/dL Normal 7-25 [facility] Comment on above: Performed By: #### E SR, CBC, CMP, BNP #### [address] Aerobic Cultureon 02-16-2024 Aerobic Culture Light Normal Respira tory Kimberly 2 Days Gram Stain Result 3+ White Blood Cells 1+ Epithelial Cells 2+ Gram Positive Cocci 1+ Yeast Like Elements PERFORMED BY: [place] [address] PATHOLOGIST PROCUREMENT COORDINATOR JORGE MURRELL M.D. Normal [facility] Comment on above: Performed By: #### E SR, CBC, CMP, BNP #### [address] Basic Metabolic Panelon 01-27 Anion gap [Moles/Vol] 9.6 mmol/L Normal 6.0-15.0 [facility] Comment on above: Performed By: #### E SR, CBC, CMP, BNP #### [place] [address] [place] Calcium [Mass/Vol] 8.5 mg/dL Low 8.6-10.3 [facility] Comment on above: Performed By: #### E SR, CBC, CMP, BNP #### [address] Chloride [Moles/Vol] 103 mmol/L Normal 98-107 [facility] Comment on above: Performed By: #### E SR, CBC, CMP, BNP #### [place] [address] [place] CO2 [Moles/Vol] 27.3 mmol/L Normal 21.0-31.0 [facility] Comment on above: Performed By: #### E SR, CBC, CMP, BNP #### [address] Creatinine [Mass/Vol] 0.92 mg/dL Normal 0.60-1.20 [facility] Comment on above: Performed By: #### E SR, CBC, CMP, BNP #### [place] [address] [place] Creatinine Clr Calc Pharmacy 47.75 Normal [facility] Comment on above: Result Comment: PERF ORMED BY: [place] [address] PATHOLOGIST PROCUREMENT COORDINATOR JORGE MURRELL M.D. Performed By: #### E SR, CBC, CMP, BNP #### [place] [address] [place] GFR/1.73 sq M.predicted MDRD (S/P/Bld) [Vol rate/Area] mL/min/{1.73_m2} Normal [facility] Comment on above: Performed By: #### E SR, CBC, CMP, BNP #### [address] Glucose [Mass/Vol] 83 mg/dL Normal 70-100 [facility] Comment on above: Result Comment: Bromide Glucose Reference Range is dependent on time and content of last meal. Glucose of more than 200 mg/dL in a nonstressed, ambulatory subject supports the diagnosis of Diabetes Mellitus. ADA recommended reference range Performed By: #### E SR, CBC, CMP, BNP #### [place] [address] [place] Potassium [Moles/Vol] 3.9 mmol/L Normal 3.5-5.1 [facility] Comment on above: Performed By: #### E SR, CBC, CMP, BNP #### [place] [address] Sodium [Moles/Vol] 136 mmol/L Normal 136-145 [facility] Comment on above: Performed By: #### E SR, CBC, CMP, BNP #### [address] Urea nitrogen [Mass/Vol] 9 mg/dL Normal 7-25 [facility] Comment on above: Performed By: #### E SR, CBC, CMP, BNP #### [address] Gram stain for investigation of transfusion reactionOrdered By: Lucho Grullon on 02-16-2024 Microscopic observation Gram stain Nom (Unsp spec) 1 Day [facility] Hemogram CBC Without Diffon 02-16-2024 Erythrocyte distribution width (RBC) [Ratio] 18.3 % High 11.9-15.3 [facility] Comment on above: Performed By: #### E SR, CBC, CMP, BNP #### [address] Hematocrit (Bld) [Volume fraction] 33.8 % Low 34.0-46.4 [facility] Comment on above: Performed By: #### E SR, CBC, CMP, BNP #### [address] Hemoglobin (Bld) [Mass/Vol] 10.6 g/dL Low 11.8-15.4 [facility] Comment on above: Performed By: #### E SR, CBC, CMP, BNP #### [address] MCH (RBC) [Entitic mass] 24.1 pg Low 24.7-34.3 [facility] Comment on above: Performed By: #### E SR, CBC, CMP, BNP #### [address] MCV (RBC) [Entitic vol] 76.8 fL Low 80-100 [facility] Comment on above: Performed By: #### E SR, CBC, CMP, BNP #### [address] Mean Corpuscular HGB Conc 31.4 g/dL Low 32.0-35.0 [facility] Comment on above: Performed By: #### E SR, CBC, CMP, BNP #### [address] Platelet mean volume (Bld) [Entitic vol] 7.1 fL Normal 6.3-10.7 [facility] Comment on above: Result Comment: PERF ORMED BY: [place] [address] PATHOLOGIST PROCUREMENT COORDINATOR JORGE MURRELL M.D. Performed By: #### E SR, CBC, CMP, BNP #### [address] Platelets (Bld) [#/Vol] 373 10*3/uL Normal 150-450 [facility] Comment on above: Performed By: #### E SR, CBC, CMP, BNP #### [address] RBC (Bld) [#/Vol] 4.41 10*6/uL Normal 3.60-5.00 [facility] Comment on above: Performed By: #### E SR, CBC, CMP, BNP #### [address] WBC (Bld) [#/Vol] 11.1 10*3/uL Normal 3.8-11.6 [facility] Comment on above: Performed By: #### E SR, CBC, CMP, BNP #### [address] Basic Metabolic Panelon 04-2 0-2023 Anion gap [Moles/Vol] 9.8 mmol/L Normal 6.0-15.0 [facility] Comment on above: Performed By: #### E SR, CBC, CMP, BNP #### [address] Calcium [Mass/Vol] 8.4 mg/dL Low 8.6-10.3 [facility] Comment on above: Performed By: #### E SR, CBC, CMP, BNP #### [facility] [address] [place] [address] [place] Chloride [Moles/Vol] 103 mmol/L Normal 98-107 [facility] Comment on above: Performed By: #### E SR, CBC, CMP, BNP #### [facility] [address] [place] [address] [place] CO2 [Moles/Vol] 28.7 mmol/L Normal 21.0-31.0 [facility] Comment on above: Performed By: #### E SR, CBC, CMP, BNP #### [facility] [address] [place] [address] [place] Creatinine [Mass/Vol] 1.16 mg/dL Normal 0.60-1.20 [facility] Comment on above: Performed By: #### E SR, CBC, CMP, BNP #### [facility] [address] [place] [address] [place] Creatinine Clr Calc Pharmacy 37.75 Normal [facility] Comment on above: Performed By: #### E SR, CBC, CMP, BNP #### [facility] [address] [place] [address] [place] GFR/1.73 sq M.predicted MDRD (S/P/Bld) [Vol rate/Area] 48.257 mL/min/{1.73_m2} Normal [facility] Comment on above: Performed By: #### E SR, CBC, CMP, BNP #### [place] [address] [place] Glucose [Mass/Vol] 79 mg/dL Normal 70-100 [facility] Comment on above: Result Comment: Bromide Glucose Reference Range is dependent on time and content of last meal. Glucose of more than 200 mg/dL in a nonstressed, ambulatory subject supports the diagnosis of Diabetes Mellitus. ADA recommended reference range Performed By: #### E SR, CBC, CMP, BNP #### [facility] [address] [place] [address] [place] Potassium [Moles/Vol] 3.5 mmol/L Normal 3.5-5.1 [facility] Comment on above: Performed By: #### E SR, CBC, CMP, BNP #### [address] Sodium [Moles/Vol] 138 mmol/L Normal 136-145 [facility] Comment on above: Performed By: #### E SR, CBC, CMP, BNP #### [address] Urea nitrogen [Mass/Vol] 14 mg/dL Normal 7-25 [facility] Comment on above: Performed By: #### E SR, CBC, CMP, BNP #### [address] Clostridioides difficile tox in B tcdB gene [Presence] in Stool by ELIZABETH with probe deteOrdered By: Lucho Grullon on 02-15-2024 C. difficile toxin B tcdB gene ELIZABETH+probe Ql (Stl) Negative Negative [facility] Comment on above: Testing performed by RT-PCR Clostridium Difficileon 01-27 Clostridium Difficile Negative Normal Negative [facility] Comment on above: Order Comment: > or = to 3 loose/watery stools in the last 24 HRS? Y Is patient on promotility agents or tube feeding? N Result Comment: Test ing performed by RT-PCR PERFORMED BY: [place] [address] PATHOLOGIST PROCUREMENT COORDINATOR JORGE MURRELL M.D. Performed By: #### E SR, CBC, CMP, BNP #### [address] Hemogram CBC Without Diffon 02-15-2024 Erythrocyte distribution width (RBC) [Ratio] 18.2 % High 11.9-15.3 [facility] Comment on above: Performed By: #### E SR, CBC, CMP, BNP #### [address] Hematocrit (Bld) [Volume fraction] 34.6 % Normal 34.0-46.4 [facility] Comment on above: Performed By: #### E SR, CBC, CMP, BNP #### [address] Hemoglobin (Bld) [Mass/Vol] 10.9 g/dL Low 11.8-15.4 [facility] Comment on above: Performed By: #### E SR, CBC, CMP, BNP #### [address] MCH (RBC) [Entitic mass] 24.2 pg Low 24.7-34.3 [facility] Comment on above: Performed By: #### E SR, CBC, CMP, BNP #### [address] MCV (RBC) [Entitic vol] 77.1 fL Low 80-100 [facility] Comment on above: Performed By: #### E SR, CBC, CMP, BNP #### [address] Mean Corpuscular HGB Conc 31.4 g/dL Low 32.0-35.0 [facility] Comment on above: Performed By: #### E SR, CBC, CMP, BNP #### [address] Platelet mean volume (Bld) [Entitic vol] 7.0 fL Normal 6.3-10.7 [facility] Comment on above: Result Comment: PERF ORMED BY: [place] [address] PATHOLOGIST PROCUREMENT COORDINATOR JORGE MURRELL M.D. Performed By: #### E SR, CBC, CMP, BNP #### [place] [address] [place] Platelets (Bld) [#/Vol] 333 10*3/uL Normal 150-450 [facility] Comment on above: Performed By: #### E SR, CBC, CMP, BNP #### [address] RBC (Bld) [#/Vol] 4.48 10*6/uL Normal 3.60-5.00 [facility] Comment on above: Performed By: #### E SR, CBC, CMP, BNP #### [facility] [address] WBC (Bld) [#/Vol] 10.0 10*3/uL Normal 3.8-11.6 [facility] Comment on above: Performed By: #### E SR, CBC, CMP, BNP #### [place] [address] [place] Lactoferrin, Stool WBCon Lactoferrin, Stool WBC LACTOFERRIN Positive for Fecal Lactoferrin Review patient history for chronic inflammatory conditions and status which can cause positive results unrelated to acute infectious disease. -- Reference range = Negative PERFORMED BY: [place] [address] PATHOLOGIST PROCUREMENT COORDINATOR JORGE MURRELL M.D. Normal [facility] Comment on above: Performed By: #### E SR, CBC, CMP, BNP #### [address] Magnesium [Mass/volume] in S kaveh or PlasmaOrdered By: Lucho Grullon on 02-15-2024 Magnesium [Mass/Vol] 1.5 mg/dL Low 1.9-2.7 [facility] Comment on above: Result Comment: PERF ORMED BY: [place] [address] PATHOLOGIST PROCUREMENT COORDINATOR JORGE MURRELL M.D. Performed By: #### E SR, CBC, CMP, BNP #### [address] Stool Cultureon 02-15-2024 Stool culture Negative for Shiga T oxin 1 Negative for Shiga Toxin 2 -- A negative Shiga Toxin result may occur if the antigen level in the specimen is below the detection limit of the assay. Stool culture results No Salmonella, Shigella, Campy or E. coli 0157:H7 Isolated PERFORMED BY: [place] [address] PATHOLOGIST PROCUREMENT COORDINATOR JORGE MURRELL M.D. Normal [facility] Comment on above: Performed By: #### E SR, CBC, CMP, BNP #### [facility] [address] Stool bacteria identificatio n by cultureOrdered By: Lucho Grullon on 02-15-2024 Bacteria identified Cx Nom (Stl) [facility] Stool lactoferrin detectionO rdered By: Lucho Grullon on 02-15-2024 Lactoferrin Ql (Stl) [facility] US venous duplex LE RTon US venous duplex LE RT [facility] [place] [address] [place] [address] Ultrasound Report Signed Patient: Gera Perdue MR#: [id number] : 1945 Acct:[id number] Age/Sex: 78 / F ADM Date: 02/14/24 Loc: Room: [address] [place] [address] Type: ADM IN Attending Dr: Lucho Grullon [...] Hilario Angulo MD02/15/2024 11:55 AM Dictation Location: [place] [address] Tech: Elizabeth Garcia Transcribed By: ANA 02/15/24 1155 Dictated By: Hilario Angulo MD 02/15/24 1154 Signed By: 02/15/24 1155 Normal [facility] Alanine aminotransferase [En zymatic activity/volume] in Serum or PlasmaOrdered By: Kadie Jones on 02-14-2024 ALT [Catalytic activity/Vol] 5 U/L Low 7-52 [facility] Comment on above: Performed By: #### S CAN CBC, LIPASE, CMP, HS TROP, MG, NORMA #### [facility] [address] [place] [address] [place] Albumin [Mass/volume] in Ser um or Plasma by Bromocresol green (BCG) dye binding methoOrdered By: Kadie Jones on 02-14-2024 Albumin BCG dye [Mass/Vol] 3.7 g/dL 3.5-5.7 [facility] Alkaline phosphatase [Enzyma tic activity/volume] in Serum or PlasmaOrdered By: Kadie Jones on 02-14-2024 ALP [Catalytic activity/Vol] 75 U/L Normal 34-104 [facility] Comment on above: Performed By: #### S CAN CBC, LIPASE, CMP, HS TROP, MG, NORMA #### [facility] [address] [place] [address] [place] Amylase [Enzymatic activity/ volume] in Serum or PlasmaOrdered By: Kadie Jones on 02-14-2024 Amylase [Catalytic activity/Vol] 10 U/L Low 29-103 [facility] Comment on above: Performed By: #### S CAN CBC, LIPASE, CMP, HS TROP, MG, NORMA #### [address] Aspartate aminotransferase [ Enzymatic activity/volume] in Serum or PlasmaOrdered By: Kadie Karen on 02-14-2024 AST [Catalytic activity/Vol] 11 U/L Low 13-39 [facility] Comment on above: Performed By: #### S CAN CBC, LIPASE, CMP, HS TROP, MG, NORMA #### [address] Automated basophil %Ordered By: Kadie Abhilashimore on 02-14-2024 Basophils/100 WBC (Bld) 0.9 % Normal . [facility] Comment on above: Performed By: #### S CAN CBC, LIPASE, CMP, HS TROP, MG, NORMA #### [address] Automated basophil countOrde red By: Kadieruslan Hunglamonte on 02-14-2024 Basophils (Bld) [#/Vol] 0.1 10*3/uL Normal 0.0-0.2 [facility] Comment on above: Result Comment: PERF ORMED BY: [place] [address] PATHOLOGIST PROCUREMENT COORDINATOR JORGE MURRELL M.D. Performed By: #### S CAN CBC, LIPASE, CMP, HS TROP, MG, NORMA #### [address] Automated blood monocyte cou ntOrdered By: Kadie Karen on 02-14-2024 Monocytes (Bld) [#/Vol] 1.7 10*3/uL High 0.0-0.8 [facility] Comment on above: Performed By: #### S CAN CBC, LIPASE, CMP, HS TROP, MG, NORMA #### [address] Automated eosinophil %Ordere d By: Kadie Bullimore on 02-14-2024 Eosinophils/100 WBC (Bld) 0.4 % Normal . [facility] Comment on above: Performed By: #### S CAN CBC, LIPASE, CMP, HS TROP, MG, NORMA #### [address] Automated eosinophil countOr dered By: Kadie Karen on 02-14-2024 Eosinophils (Bld) [#/Vol] 0.0 10*3/uL Normal 0.0-0.45 [facility] Comment on above: Performed By: #### S CAN CBC, LIPASE, CMP, HS TROP, MG, NORMA #### [address] Automated erythrocytes count in urine sediment (number/area)Ordered By: Kadie Jones on 02-14-2024 RBC Auto (Urine sed) [#/Area] 0-1 [HPF] 0-4 [facility] Automated leukocytes count i n urine sediment (number/area)Ordered By: Kadie Hustonore on 02-14-2024 WBC Auto (Urine sed) [#/Area] 50-100 [HPF] 0-4 [facility] Automated monocyte %Ordered By: Kadie Jones on 02-14-2024 Monocytes/100 WBC (Bld) 12.3 % Normal . [facility] Comment on above: Performed By: #### S CAN CBC, LIPASE, CMP, HS TROP, MG, NORMA #### [address] Automated neutrophil %Ordere d By: Kadie Jones on 02-14-2024 Neutrophils/100 WBC (Bld) 62.7 % Normal . [facility] Comment on above: Performed By: #### S CAN CBC, LIPASE, CMP, HS TROP, MG, NORMA #### [address] Automated urine color determ inationOrdered By: Kadie Jones on 02-14-2024 Color (U) Dark yellow Critically abnormal Yellow [facility] Comment on above: Order Comment: Name Collection Type:: Straight Catheter Performed By: #### E SR, CBC, CMP, BNP #### [address] BNP ser/plasOrdered By: Bianca Jones on 02-14-2024 Natriuretic peptide B (Bld) [Mass/Vol] 29.0 pg/mL Normal 5-100 [facility] Comment on above: Result Comment: PERF ORMED BY: [place] [address] PATHOLOGIST PROCUREMENT COORDINATOR JORGE MURRELL M.D. Performed By: #### E SR, CBC, CMP, BNP #### [address] Bilirubin Test strip Ql (U)O rdered By: Kadie Jones on 02-14-2024 Bilirubin Ql (U) Negative Negative [facility] Bilirubin.total [Mass/volume ] in Serum or PlasmaOrdered By: Kadie Jones on 02-14-2024 Bilirubin [Mass/Vol] 0.5 mg/dL Normal 0.3-1.0 [facility] Comment on above: Performed By: #### S CAN CBC, LIPASE, CMP, HS TROP, MG, NORMA #### [address] Blood Cultureon 02-14-2024 Bacteria identified Cx Nom (Bld) NO GROWTH 5 DAYS PERFORMED BY: [place] [address] PATHOLOGIST PROCUREMENT COORDINATOR JORGE MURRELL M.D. Normal [facility] Comment on above: Performed By: #### E SR, CBC, CMP, BNP #### [address] Bacteria identified Cx Nom (Bld) NO GROWTH 5 DAYS PERFORMED BY: [place] [address] PATHOLOGIST PROCUREMENT COORDINATOR JORGE MURRELL M.D. Normal [facility] Comment on above: Performed By: #### E SR, CBC, CMP, BNP #### [address] COVID CepheidOrdered By: Abbi Jones on 02-14-2024 SARS-CoV-2 (COVID-19) Ab IA Ql Negative Negative [facility] Comment on above: This is a duplicate Cepheid Xpert Xpress CoV-2/Flu/RSV Plus RNA by RT-PCR result to be used for statistical tracking purpose only. SARS-CoV-2 (COVID-19) RNA ELIZABETH+probe Ql (Unsp spec) [facility] COVID-19 / Flu A/B / RSV PCR [...] or Cepheid Disclaimer revoked sooner. PERFORMED BY: [place] [address] PATHOLOGIST PROCUREMENT COORDINATOR JORGE MURRELL M.D. Normal [facility] Comment on above: Performed By: #### E SR, CBC, CMP, BNP #### [address] abdomen pelvis w conon CT abdomen pelvis w con [facility] [place] [address] [place] [address] CT Scan Report Signed Patient: Gera Perdue MR#: [id number] : 1945 Acct:[id number] Age/Sex: 78 / F ADM Date: 02/14/24 Loc: ER Room: Type: [facility] ER Attending Dr: Copies to: [...] Bhavesh Avendaño M.D.02/14/2024 2:21 PM Dictation Location: [place] [address] Transcribed By: [facility] 02/14/24 1421 Dictated By: Bhavesh Avendaño II, MD 02/14/24 1411 Signed By: 02/14/24 1421 Normal [facility] Calcium [Mass/volume] in Ser um or PlasmaOrdered By: Kadie Jones on 02-14-2024 Calcium [Mass/Vol] 9.5 mg/dL Normal 8.6-10.3 [facility] Comment on above: Performed By: #### S CAN CBC, LIPASE, CMP, HS TROP, MG, NORMA #### [address] Carbon dioxide, total [Moles /volume] in Serum or PlasmaOrdered By: Kadie Jones on 02-14-2024 CO2 [Moles/Vol] 30.8 mmol/L Normal 21.0-31.0 [facility] Comment on above: Performed By: #### S CAN CBC, LIPASE, CMP, HS TROP, MG, NORMA #### [address] Cepheid COVID PCR Negativeon 02-14-2024 SARS-CoV-2 (COVID-19) RNA ELIZABETH+probe Ql (Unsp spec) Negative Normal Negative [facility] Comment on above: Result Comment: This is a duplicate Cepheid Xpert Xpress CoV-2/Flu/RSV Plus RNA by RT-PCR result to be used for statistical tracking purpose only. PERFORMED BY: [place] [address] PATHOLOGIST PROCUREMENT COORDINATOR JORGE MURRELL M.D. Performed By: #### E SR, CBC, CMP, BNP #### [address] Chloride [Moles/volume] in S kaveh or PlasmaOrdered By: Kadie Jones on 02-14-2024 Chloride [Moles/Vol] 97 mmol/L Low 98-107 [facility] Comment on above: Performed By: #### S CAN CBC, LIPASE, CMP, HS TROP, MG, NORMA #### [address] Comprehensive Metabolic Pane harsha 02-14-2024 Albumin [Mass/Vol] 3.7 g/dL Normal 3.5-5.7 [facility] Comment on above: Performed By: #### S CAN CBC, LIPASE, CMP, HS TROP, MG, NORMA #### [address] Creatinine Clr Calc Pharmacy 32.86 Normal [facility] Comment on above: Performed By: #### S CAN CBC, LIPASE, CMP, HS TROP, MG, NORMA #### [address] GFR/1.73 sq M.predicted MDRD (S/P/Bld) [Vol rate/Area] 41.325 mL/min/{1.73_m2} Normal [facility] Comment on above: Performed By: #### S CAN CBC, LIPASE, CMP, HS TROP, MG, NORMA #### [address] Creatinine [Mass/volume] in Serum or PlasmaOrdered By: Kadie Jones on 02-14-2024 Creatinine [Mass/Vol] 1.32 mg/dL High 0.60-1.20 [facility] Comment on above: Performed By: #### S CAN CBC, LIPASE, CMP, HS TROP, MG, NORMA #### [address] Dipstick and Microscopicon 0 02-14-2024 Appearance (U) Clear Normal Clear [facility] Comment on above: Order Comment: Name Collection Type:: Straight Catheter Performed By: #### E SR, CBC, CMP, BNP #### [address] Bacteria,Urine 4+ High None Seen [facility] Comment on above: Order Comment: Name Collection Type:: Straight Catheter Performed By: #### E SR, CBC, CMP, BNP #### [address] Bilirubin,Urine Negative Normal Negative [facility] Comment on above: Order Comment: Name Collection Type:: Straight Catheter Performed By: #### E SR, CBC, CMP, BNP #### [address] Glucose Ql (U) Normal Normal Normal [facility] Comment on above: Order Comment: Name Collection Type:: Straight Catheter Performed By: #### E SR, CBC, CMP, BNP #### [place] [address] [place] Hyaline Casts,Urine 9-19 High 0-8 [facility] Comment on above: Order Comment: Name Collection Type:: Straight Catheter Result Comment: PERF ORMED BY: [place] [address] PATHOLOGIST PROCUREMENT COORDINATOR JORGE MURRELL M.D. Performed By: #### E SR, CBC, CMP, BNP #### [address] Ketones Ql (U) Trace High Negative [facility] Comment on above: Order Comment: Name Collection Type:: Straight Catheter Performed By: #### E SR, CBC, CMP, BNP #### [address] Leukocyte esterase Test strip Ql (U) 3+ High Negative [facility] Comment on above: Order Comment: Name Collection Type:: Straight Catheter Performed By: #### E SR, CBC, CMP, BNP #### [place] [address] [place] Nitrite,Urine Positive High Negative [facility] Comment on above: Order Comment: Name Collection Type:: Straight Catheter Performed By: #### E SR, CBC, CMP, BNP #### [place] [address] [place] Occult Blood,Urine Trace High Negative [facility] Comment on above: Order Comment: Name Collection Type:: Straight Catheter Result Comment: PERF ORMED BY: [place] [address] PATHOLOGIST PROCUREMENT COORDINATOR JORGE MURRELL M.D. Performed By: #### E SR, CBC, CMP, BNP #### [place] [address] [place] RBC LM.HPF (Urine sed) [#/Area] 0 /[HPF] Normal 0-4 [facility] Comment on above: Order Comment: Name Collection Type:: Straight Catheter Performed By: #### E SR, CBC, CMP, BNP #### [address] Specificy [place],Urine 1.024 Normal 1.001-1.03 0 [facility] Comment on above: Order Comment: Name Collection Type:: Straight Catheter Performed By: #### E SR, CBC, CMP, BNP #### [address] Squamous Epithelial Cell,Urine None Seen Normal 0-2 [facility] Comment on above: Order Comment: Name Collection Type:: Straight Catheter Performed By: #### E SR, CBC, CMP, BNP #### [facility] [address] Urobilinogen,Urine Normal Normal Normal [facility] Comment on above: Order Comment: Name Collection Type:: Straight Catheter Performed By: #### E SR, CBC, CMP, BNP #### [address] WBC,Urine 50-100 High 0-4 [facility] Comment on above: Order Comment: Name Collection Type:: Straight Catheter Performed By: #### E SR, CBC, CMP, BNP #### [address] ECG 12 lead ECGon 02-14-2024 ECG 12 lead ECG [facility] [place] [address] [place] [address] Electrocardiograph Report Signed Patient: Gera Perdue MR#: [id number] : 1945 Acct:[id number] Age/Sex: 78 / F ADM Date: 02/14/24 Loc: ER Room: Type: [facility] ER Attending Dr: Ordering Provider: [...] was found Confirmed by MARSHALL DOMINGUEZ DO ([id number]) on 02/14/2024 3:23:36 PM Referred By: Electronically Signed By:MARSHALL DOMINGUEZ DO Transcribed By: MUS Signed By Marshall Dominguez DO 02/13 1523 Normal [facility] Erythrocyte distribution wid th [Ratio] by Automated countOrdered By: Kadie Jones on 02-14-2024 Erythrocyte distribution width (RBC) [Ratio] 18.4 % High 11.9-15.3 [facility] Comment on above: Performed By: #### S CAN CBC, LIPASE, CMP, HS TROP, MG, NORMA #### [facility] [address] Erythrocytes [#/volume] in B lood by Automated countOrdered By: Kadie Jones on 02-14-2024 RBC (Bld) [#/Vol] 5.04 10*6/uL High 3.60-5.00 [facility] Comment on above: Performed By: #### S CAN CBC, LIPASE, CMP, HS TROP, MG, NORMA #### [facility] [address] Glucose [Mass/volume] in Ser um or PlasmaOrdered By: Kadie Jones on 02-14-2024 Glucose [Mass/Vol] 85 mg/dL Normal 70-100 [facility] Comment on above: ADA recommended refe rence rangeRandom Glucose Reference Range is dependent on time and content of last meal. Glucose of more than 200 mg/dL in a nonstressed, ambulatory subject supports the diagnosis of Diabetes Mellitus. Result Comment: Bromide om Glucose Reference Range is dependent on time and content of last meal. Glucose of more than 200 mg/dL in a nonstressed, ambulatory subject supports the diagnosis of Diabetes Mellitus. ADA recommended reference range Performed By: #### S CAN CBC, LIPASE, CMP, HS TROP, MG, NORMA #### [facility] [address] [place] [address] [place] Hematocrit [Volume Fraction] of Blood by Automated countOrdered By: Kadie Jones on 02-14-2024 Hematocrit (Bld) [Volume fraction] 38.5 % Normal 34.0-46.4 [facility] Comment on above: Performed By: #### S CAN CBC, LIPASE, CMP, HS TROP, MG, NORMA #### [facility] [address] [place] [address] Hemoglobin [Mass/volume] in BloodOrdered By: Kadie Jones on 02-14-2024 Hemoglobin (Bld) [Mass/Vol] 12.2 g/dL Normal 11.8-15.4 [facility] Comment on above: Performed By: #### S CAN CBC, LIPASE, CMP, HS TROP, MG, NORMA #### [facility] [address] [place] [address] Ketones Auto test strip (U) [Mass/Vol]Ordered By: Kadie Jones on 02-14-2024 Ketones (U) [Mass/Vol] Trace Negative [facility] - UrinalysisOrder ed By: Kadie Jones on 02-14-2024 Hyaline casts LM Ql (Urine sed) 9 [LPF] 0-8 [facility] Lactate [Moles/volume] in Se rum or PlasmaOrdered By: Kadie Jones on 02-14-2024 Lactate [Moles/Vol] 0.8 mmol/L Normal 0.5-2.2 [facility] Comment on above: Result Comment: PERF ORMED BY: [place] [address] PATHOLOGIST PROCUREMENT COORDINATOR JORGE MURRELL M.D. Performed By: #### E SR, CBC, CMP, BNP #### [facility] [address] [place] [address] Leukocytes [#/volume] correc juma for nucleated erythrocytes in Blood by Automated counOrdered By: Kadie Jones on 02-14-2024 WBC corrected for nucl RBC Auto (Bld) [#/Vol] 13.6 10*3/uL 3.8-11.6 [facility] Leukocytes [#/volume] in Blo od by Automated countOrdered By: Kadie Jones on 02-14-2024 WBC (Bld) [#/Vol] 13.6 10*3/uL High 3.8-11.6 [facility] Comment on above: Performed By: #### S CAN CBC, LIPASE, CMP, HS TROP, MG, NORMA #### [address] Lipase [Enzymatic activity/v olume] in Serum or PlasmaOrdered By: Kadie Jones on 02-14-2024 Lipase [Catalytic activity/Vol] 6.0 U/L Low 11.0-82.0 [facility] Comment on above: Result Comment: PERF ORMED BY: [place] [address] PATHOLOGIST PROCUREMENT COORDINATOR JORGE MURRELL M.D. Performed By: #### S CAN CBC, LIPASE, CMP, HS TROP, MG, NORMA #### [address] Lymphocytes [#/volume] in Bl ood by Automated countOrdered By: Kadie Jones on 02-14-2024 Lymphocytes (Bld) [#/Vol] 3.2 10*3/uL Normal 1.00-4.8 [facility] Comment on above: Performed By: #### S CAN CBC, LIPASE, CMP, HS TROP, MG, NORMA #### [address] Lymphocytes/100 leukocytes i n Blood by Automated countOrdered By: Kadie Jones on 02-14-2024 Lymphocytes/100 WBC (Bld) 23.7 % Normal . [facility] Comment on above: Performed By: #### S CAN CBC, LIPASE, CMP, HS TROP, MG, NORMA #### [address] MCH [Entitic mass] by Automa juma countOrdered By: Kadie Jones on 02-14-2024 MCH (RBC) [Entitic mass] 24.3 pg Low 24.7-34.3 [facility] Comment on above: Performed By: #### S CAN CBC, LIPASE, CMP, HS TROP, MG, NORMA #### [address] MCHC Auto (RBC) [Mass/Vol]Or dered By: Kadie Jones on 02-14-2024 MCHC (RBC) [Mass/Vol] 31.8 g/dL 32.0-35.0 [facility] MCV [Entitic volume] by Auto mated countOrdered By: Kadie Jones on 02-14-2024 MCV (RBC) [Entitic vol] 76.4 fL Low 80-100 [facility] Comment on above: Performed By: #### S CAN CBC, LIPASE, CMP, HS TROP, MG, NORMA #### [facility] [address] Magnesium [Mass/volume] in S kaveh or PlasmaOrdered By: Kadie Jones on 02-14-2024 Magnesium [Mass/Vol] 1.1 mg/dL Low 1.9-2.7 [facility] Comment on above: Performed By: #### S CAN CBC, LIPASE, CMP, HS TROP, MG, NORMA #### [facility] [address] Monocyte distribution width [Entitic volume] in Blood by AutomatedOrdered By: Kadie Jones on 02-14-2024 Monocyte distribution width Auto (Bld) [Entitic vol] 25.16 % 0.00-20.00 [facility] Comment on above: For adults in ED, MD W > 20.0 may be associated with a higher risk of sepsis during the first 12 hrs of hospital admission Neutrophils [#/volume] in Bl ood by Automated countOrdered By: Kadie Jones on 02-14-2024 Neutrophils (Bld) [#/Vol] 8.5 10*3/uL High 1.8-7.7 [facility] Comment on above: Performed By: #### S CAN CBC, LIPASE, CMP, HS TROP, MG, NORMA #### [facility] [address] Nitrite Test strip Ql (U)Ord ered By: Kadie Jones on 02-14-2024 Nitrite Ql (U) Positive Negative [facility] No Panel InformationOrdered By: Kadie Jones on 02-14-2024 Estimated GFR (CKD-EPI) 41.325 mL/Min [facility] Creatinine Clearance (Chem 32.86 [facility] Nucleated erythrocytes [Pres ence] in Blood by Automated countOrdered By: Kadie Jones on 02-14-2024 Nucleated RBC Auto Ql (Bld) 0.1 /100{WBC} 0-0.5 [facility] Platelet adequacy [Presence] in Blood by Light microscopyOrdered By: Kadie Hustonore on 02-14-2024 Platelets LM Ql (Bld) Normal Normal [facility] Platelet mean volume [Entiti c volume] in Blood by Automated countOrdered By: Kadie Hungimore on 02-14-2024 Platelet mean volume (Bld) [Entitic vol] 7.0 fL Normal 6.3-10.7 [facility] Comment on above: Performed By: #### S CAN CBC, LIPASE, CMP, HS TROP, MG, NORMA #### [facility] [address] [place] [address] Platelet morphology finding [Identifier] in BloodOrdered By: Kadie Jones on 02-14-2024 Platelet morphology finding Nom (Bld) Normal Normal [facility] Platelets [#/volume] in Bloo d by Automated countOrdered By: Kadie Jones on 02-14-2024 Platelets (Bld) [#/Vol] 448 10*3/uL Normal 150-450 [facility] Comment on above: Performed By: #### S CAN CBC, LIPASE, CMP, HS TROP, MG, NORMA #### [facility] [address] [place] [address] [place] Potassium [Moles/volume] in Serum or PlasmaOrdered By: Kadie Jones on 02-14-2024 Potassium [Moles/Vol] 4.0 mmol/L Normal 3.5-5.1 [facility] Comment on above: Performed By: #### S CAN CBC, LIPASE, CMP, HS TROP, MG, NORMA #### [facility] [address] [place] [address] [place] Protein [Mass/volume] in Ser um or PlasmaOrdered By: Kadie Bullimore on 02-14-2024 Protein [Mass/Vol] 7.9 g/dL Normal 6.4-8.9 [facility] Comment on above: Performed By: #### S CAN CBC, LIPASE, CMP, HS TROP, MG, NORMA #### [address] RBC morphologyOrdered By: Jeannie Jones on 02-14-2024 RBC morphology finding Nom (Bld) Normal Normal Normal [facility] Comment on above: Performed By: #### S CAN CBC, LIPASE, CMP, HS TROP, MG, NORMA #### [address] Scan and CBCon 02-14-2024 Mean Corpuscular HGB Conc 31.8 g/dL Low 32.0-35.0 [facility] Comment on above: Performed By: #### S CAN CBC, LIPASE, CMP, HS TROP, MG, NORMA #### [address] Monocytes/100 WBC (Bld) 25.16 % High 0.00-20.00 [facility] Comment on above: Result Comment: For adults in ED, MDW > 20.0 may be associated with a higher risk of sepsis during the first 12 hrs of hospital admission Performed By: #### S CAN CBC, LIPASE, CMP, HS TROP, MG, NORMA #### [address] NRBC% 0.1 /100{WBC} Normal 0-0.5 [facility] Comment on above: Performed By: #### S CAN CBC, LIPASE, CMP, HS TROP, MG, NORMA #### [address] Platelet Estimate Normal Normal Normal [facility] Comment on above: Performed By: #### S CAN CBC, LIPASE, CMP, HS TROP, MG, NORMA #### [address] Platelet Morphology Normal Normal Normal [facility] Comment on above: Result Comment: PERF ORMED BY: [place] [address] PATHOLOGIST PROCUREMENT COORDINATOR JORGE MURRELL M.D. Performed By: #### S CAN CBC, LIPASE, CMP, HS TROP, MG, NORMA #### [address] Serum globulin measurement b y calculation (mass/volume)Ordered By: Kadie Jones on 02-14-2024 Globulin (S) [Mass/Vol] 4.2 g/dL [facility] Comment on above: Performed By: #### S CAN CBC, LIPASE, CMP, HS TROP, MG, NORMA #### [address] Serum or plasma albumin/glob ulin mass ratioOrdered By: Kadei Bullimore on 02-14-2024 Albumin/Globulin [Mass ratio] 0.9 {ratio} [facility] Comment on above: Performed By: #### S CAN CBC, LIPASE, CMP, HS TROP, MG, NORMA #### [address] Serum or plasma anion gap de terminationOrdered By: Kadie Bullimore on 02-14-2024 Anion gap [Moles/Vol] 14.2 mmol/L Normal 6.0-15.0 [facility] Comment on above: Performed By: #### S CAN CBC, LIPASE, CMP, HS TROP, MG, NORMA #### [address] Sodium [Moles/volume] in Ser um or PlasmaOrdered By: Kadie Bullimore on 02-14-2024 Sodium [Moles/Vol] 138 mmol/L Normal 136-145 [facility] Comment on above: Performed By: #### S CAN CBC, LIPASE, CMP, HS TROP, MG, NORMA #### [address] Specific gravity Auto test s trip (U) [Rel density]Ordered By: Kadie Jones on 02-14-2024 Specific gravity (U) [Rel density] 1.024 1.001-1.03 0 [facility] Squamous epithelial cells de tection in urine sediment by light microscopyOrdered By: Kadie Jones on 02-14-2024 Epithelial cells.squamous LM Ql (Urine sed) None seen [HPF] 0-2 [facility] Troponin I High Sensitivityo n 02-14-2024 Troponin I High Sensitivity 6.5 pg/mL Normal 0.0-15.0 [facility] Comment on above: Result Comment: PERF ORMED BY: [address] [place] [address] PATHOLOGIST PROCUREMENT COORDINATOR JORGE MURRELL M.D. Performed By: #### S CAN CBC, LIPASE, CMP, HS TROP, MG, NORMA #### [facility] [address] [place] [address] Troponin I.cardiac [Mass/vol ume] in Serum or Plasma by Detection limit <= 0.01 ng/Ordered By: Kadie Jones on 02-14-2024 Troponin I.cardiac DL <= 0.01 ng/mL [Mass/Vol] 6.5 pg/mL 0.0-15.0 [facility] Urea nitrogen [Mass/volume] in Serum or PlasmaOrdered By: Kadie Jones on 02-14-2024 Urea nitrogen [Mass/Vol] 18 mg/dL Normal 7-25 [facility] Comment on above: Performed By: #### S CAN CBC, LIPASE, CMP, HS TROP, MG, NORMA #### [facility] [address] [place] [address] Urine Cultureon 02-14-2024 Bacteria identified Cx Nom (U) ORGANISM: Klebsiella pneumoniae (O:KLEPNE) Buhl Count >100,000 Aerobic NATALIA Charge (NMIC56) SUSCEPTIBILITY [...] RESISTANT TO ALL B-LACTAM DRUGS. PERFORMED BY: [place] [address] PATHOLOGIST PROCUREMENT COORDINATOR JORGE MURRELL M.D. Normal [facility] Comment on above: Performed By: #### E SR, CBC, CMP, BNP #### [facility] [address] [place] [address] Urine bacteria detection by automated methodOrdered By: Kadie Jones on 02-14-2024 Bacteria Auto Ql (U) 4+ None Seen [facility] Urine clarity by refractomet ry automatedOrdered By: Kadie Jones on 02-14-2024 Clarity Refractometry automated (U) Clear Clear [facility] Urine culture routineOrdered By: Kadie Jones on 02-14-2024 Bacteria identified Cx Nom (U) Klebsiella pneumoniae [facility] Urine glucose measurement by automated test strip (mass/volume)Ordered By: Kadie Jones on 02-14-2024 Glucose Auto test strip (U) [Mass/Vol] Normal mg/dL Normal [facility] Urine hemoglobin detection b y automated test stripOrdered By: Kadie Jones on 02-14-2024 Hemoglobin Auto test strip Ql (U) Trace Negative [facility] Urine leukocyte esterase det ection by automated test stripOrdered By: Kadie Jones on 02-14-2024 Leukocyte esterase Auto test strip Ql (U) 3+ Negative [facility] Urine pH measurement by auto mated test stripOrdered By: Kadie Jones on 02-14-2024 pH (U) 5.5 [pH] Normal 5.0-9.0 [facility] Comment on above: Order Comment: Name Collection Type:: Straight Catheter Performed By: #### E SR, CBC, CMP, BNP #### [facility] [address] Urine protein measurement by automated test strip (mass/volume)Ordered By: Kadie Jones on 02-14-2024 Protein (U) [Mass/Vol] 30 mg/dL High Negative [facility] Comment on above: Order Comment: Name Collection Type:: Straight Catheter Performed By: #### E SR, CBC, CMP, BNP #### [address] Urobilinogen Auto test strip (U) [Mass/Vol]Ordered By: Kadie Jones on 02-14-2024 Urobilinogen (U) [Mass/Vol] Normal mg/dL Normal [facility] XR chest 1V portableon 02-13 XR chest 1V portable [facility] [place] [address] [place] [address] XRay Report Signed Patient: Gera Perdue MR#: [id number] : 1945 Acct:[id number] Age/Sex: 78 / F ADM Date: 02/14/24 Loc: ER Room: Type: [facility] ER Attending Dr: Copies to: [...] Bhavesh Avendaño M.D.02/14/2024 12:59 PM Dictation Location: [place] [address] Transcribed By: [facility] 02/14/24 1259 Dictated By: Bhavesh Avendaño II, MD 02/14/24 1257 Signed By: 02/14/24 1259 Normal [facility] C Urineon 02-01-2024 Bacteria identified Cx Nom (U) Microbiology PROCEDURE: Urine Culture [R1] SOURCE: U Random BODY SITE: COLLECTED DATE/TIME: 01/30/2024 14:39 EDT RECEIVED DATE/TIME: 01/30/2024 19:21 EDT START DATE/TIME: 01/30/2024 19:21 EDT FREE TEXT SOURCE: Orjennie ABSTRACT WRITER, HAND TRIMMER-C, Orzech ABSTRACT WRITER, HAND TRIMMER-C, Renae X Renae X FINAL REPORTS Final Report [] Verified Date/Time: 02/01/2024 09:31 EDT <10,000 cfu/ml Mixed skin contaminants Mixed kimberly (multiple species present) Performing Locations R1: This test was performed at: [facility], [address] [place] [address], [facility]- , , [facility] Comment on above: Performed By: #### 2 [id number] #### [facility] [address] [place] [address] [employer]son 01-31-2024 Forms [id number] Normal [facility] Physician Referralon 024 Physician Referral [id number] Normal [facility] Ambulatory Visit Summaryon 0 01-30-2024 [...] Atherosclerosis of aorta Atherosclerotic heart disease of kashia coronary artery without angina pectoris Carotid stenosis [...] for choosing us for your care. Antoine [facility] Patient Educationon 01-30-20 Patient Education [...] this condition includes: ? Antibiotic medicine. ? [id number] medicines to treat discomfort. ? Drinking enough [...] these instructions at home: Medicines ? Take [id number]-[id number] and prescription medicines only as told by [...] Revie (more content not included)... 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 Salas for incontinence. Micro UA done 12/30/23. She states she thought she seen Dr. Croft before (nothing on [employer]) she just knows it was a long time ago Started at [facility] September with UTI and was transferred to [facility] in October is when they told her [...] with voice recognition artificial intelligence software, specifically [employer], [employer] and or [employer]. Substitutions may have occurred due to the [...] otherwise by our office. Rx sent to [facility] in [place]. - Start antibiotics today - Send urine for culture Ordered: cephalexin, 500 mg = 1 cap(s), Oral, q12hr, X 7 day(s), # 14 cap(s), Refills(s) 0, Pharmacy: [id number], 170, cm, 01/30/24 13:39:00 [...] reevaluate after procedure Ordered: Urine Culture Orders: [id number] Measure Post Void residual urine and/or bladder capacity by US- non-imaging Urnls Dip Stick Auto w/o Microscopy POC 22355 Urnls Dip Stick Auto w/o Microscopy POC 39454 Follow-up With When Contact Information CHIP Ponce APRN, Renae Delaney, FAM, URL Additional Instruction (more content not included)... Normal [facility] Comment on above: Result Comment: Elec tronically Signed By: CHIP Ponce APRN, Renae Delaney\.br\Date and Time Signed: 01/30/24 14:52 EDT TRANSTHORACIC ECHO (TTE) COM PLETEon 01-27-2024 TRANSTHORACIC ECHO (TTE) COMPLETE [address], [address] [place] [address] TRANSTHORACIC ECHOCARDIOGRAM REPORT Patient Name: GERA Durham IRON Hernandez Physician: [id number] Seth Barnes MD, [facility] Study Date: 01/27/2024 Ordering Provider: [id number] JENNA ENGLE MRN/PID: [id number] Fellow: Nurse: Date of /Age: 1 1945 / 78 years Perch Machine Inspector: Inessa Roche [facility], T Gender: F Additional Staff: Height: 162.56 cm Admit Date: Weight: 87.09 kg Admission Status: BSA / BMI: 1.92 m2 / 32.96 kg/m2 Department Location: [facility] Blood Pressure: 126 /78 mmHg Study Type: TRANSTHORACIC ECHO (TTE) COMPLETE Diagnosis/ICD: Shortness of breath-R06.02 Indication: History of PEA-09/2023, CAD, PTCA-04/2019, COPD, HTN, Hyperlipidemia, Tobacco Abuse, Hypoxemia, Sid, CKD-Stage III, Anemia CPT Codes: Echo Complete w Full Doppler-[id number] Study Detail: The following Echo studies were [...] 1.1 m/s (0.6-0.9m/s) PV Max P.5 mmHg [id number] Seth Barnes MD, FACC Electronically signed on 01/29/2024 at 7:26:59 PM Final Normal [facility] Alanine aminotransferase [En zymatic activity/volume] in Serum or PlasmaOrdered By: Jenna Engle on 01-06-2024 ALT [Catalytic activity/Vol] 19 U/L Normal [facility] Comment on above: Performed By: #### E SR, CBC, CMP, BNP #### [address] Albumin [Mass/volume] in Ser um or Plasma by Bromocresol green (BCG) dye binding methoOrdered By: Jenna Engle on 01-06-2024 Albumin BCG dye [Mass/Vol] 3.9 g/dL 3.5-5.7 [facility] Alkaline phosphatase [Enzyma tic activity/volume] in Serum or PlasmaOrdered By: Jenna Engle on 01-06-2024 ALP [Catalytic activity/Vol] 66 U/L Normal 34-104 [facility] Comment on above: Result Comment: PERF ORMED BY: [place] [address] PATHOLOGIST PROCUREMENT COORDINATOR JORGE MURRELL M.D. Performed By: #### E SR, CBC, CMP, BNP #### [address] Aspartate aminotransferase [ Enzymatic activity/volume] in Serum or PlasmaOrdered By: Jenna Engle on 01-06-2024 AST [Catalytic activity/Vol] 22 U/L Normal 13-39 [facility] Comment on above: Performed By: #### E SR, CBC, CMP, BNP #### [address] Automated basophil %Ordered By: Jenna Engle on 01-06-2024 Basophils/100 WBC (Bld) 0.4 % Normal . [facility] Comment on above: Performed By: #### E SR, CBC, CMP, BNP #### [address] Automated basophil countOrde red By: Jenna Engle on 01-06-2024 Basophils (Bld) [#/Vol] 0.1 10*3/uL Normal 0.0-0.2 [facility] Comment on above: Performed By: #### E SR, CBC, CMP, BNP #### [address] Automated blood monocyte cou ntOrdered By: Jenna Engle on 01-06-2024 Monocytes (Bld) [#/Vol] 1.2 10*3/uL High 0.0-0.8 [facility] Comment on above: Performed By: #### E SR, CBC, CMP, BNP #### [address] [place] [address] [place] Automated eosinophil %Ordere d By: Jenna Engle on 01-06-2024 Eosinophils/100 WBC (Bld) 0.9 % Normal . [facility] Comment on above: Performed By: #### E SR, CBC, CMP, BNP #### [address] Automated eosinophil countOr dered By: Jenna Engle on 01-06-2024 Eosinophils (Bld) [#/Vol] 0.1 10*3/uL Normal 0.0-0.45 [facility] Comment on above: Performed By: #### E SR, CBC, CMP, BNP #### [address] Automated monocyte %Ordered By: Jenna Engle on 01-06-2024 Monocytes/100 WBC (Bld) 8.7 % Normal . [facility] Comment on above: Performed By: #### E SR, CBC, CMP, BNP #### [address] Automated neutrophil %Ordere d By: Jenna Engle on 01-06-2024 Neutrophils/100 WBC (Bld) 59.8 % Normal . [facility] Comment on above: Performed By: #### E SR, CBC, CMP, BNP #### [address] BNP ser/plasOrdered By: Gisel Engle on 01-06-2024 Natriuretic peptide B (Bld) [Mass/Vol] 358.0 pg/mL High 5-100 [facility] Comment on above: Result Comment: PERF ORMED BY: [place] [address] PATHOLOGIST PROCUREMENT COORDINATOR JORGE MURRELL M.D. Performed By: #### E SR, CBC, CMP, BNP #### [address] Bilirubin.total [Mass/volume ] in Serum or PlasmaOrdered By: Jenna Engle on 01-06-2024 Bilirubin [Mass/Vol] 0.3 mg/dL Normal 0.3-1.0 [facility] Comment on above: Performed By: #### E SR, CBC, CMP, BNP #### [address] Calcium [Mass/volume] in Ser um or PlasmaOrdered By: Jenna Engle on 01-06-2024 Calcium [Mass/Vol] 9.5 mg/dL Normal 8.6-10.3 [facility] Comment on above: Performed By: #### E SR, CBC, CMP, BNP #### [address] Carbon dioxide, total [Moles /volume] in Serum or PlasmaOrdered By: Jenna Engle on 01-06-2024 CO2 [Moles/Vol] 31.7 mmol/L High 21.0-31.0 [facility] Comment on above: Performed By: #### E SR, CBC, CMP, BNP #### [address] Chloride [Moles/volume] in S kaveh or PlasmaOrdered By: Jenna Engle on 01-06-2024 Chloride [Moles/Vol] 108 mmol/L High 98-107 [facility] Comment on above: Performed By: #### E SR, CBC, CMP, BNP #### [address] Complete Blood Count Auto Di ffon 01-06-2024 Mean Corpuscular HGB Conc 31.6 g/dL Low 32.0-35.0 [facility] Comment on above: Performed By: #### E SR, CBC, CMP, BNP #### [address] NRBC% 0.0 /100{WBC} Normal 0-0.5 [facility] Comment on above: Performed By: #### E SR, CBC, CMP, BNP #### [address] Comprehensive Metabolic Pane harsha 01-06-2024 Albumin [Mass/Vol] 3.9 g/dL Normal 3.5-5.7 [facility] Comment on above: Performed By: #### E SR, CBC, CMP, BNP #### [address] GFR/1.73 sq M.predicted MDRD (S/P/Bld) [Vol rate/Area] 47.277 mL/min/{1.73_m2} Normal [facility] Comment on above: Performed By: #### E SR, CBC, CMP, BNP #### [address] Creatinine [Mass/volume] in Serum or PlasmaOrdered By: Jenna Engle on 01-06-2024 Creatinine [Mass/Vol] 1.18 mg/dL Normal 0.60-1.20 [facility] Comment on above: Performed By: #### E SR, CBC, CMP, BNP #### [address] ECG 12 Leadon 01-06-2024 [facility] Work Phone: Normal sinus rhythm at 62 bpm WI interval 170 ms QRS duration 80 ms QTc 401 ms. [facility] Work Phone: [facility] Work Phone: Erythrocyte Sedimentation Ra jami 01-06-2024 ESR (Bld) [Velocity] 34 mm/h High 0-29 [facility] Comment on above: Result Comment: PERF ORMED BY: [place] [address] PATHOLOGIST PROCUREMENT COORDINATOR JORGE MURRELL M.D. Performed By: #### E SR, CBC, CMP, BNP #### [facility] [address] [place] [address] Erythrocyte distribution wid th [Ratio] by Automated countOrdered By: Jenna Engle on 01-06-2024 Erythrocyte distribution width (RBC) [Ratio] 20.0 % High 11.9-15.3 [facility] Comment on above: Performed By: #### E SR, CBC, CMP, BNP #### [facility] [address] Erythrocyte sedimentation ra te by Photometric methodOrdered By: Jenna Engle on 01-06-2024 ESR Photometric method (Bld) [Velocity] 34 mm/hr 0-29 [facility] Erythrocytes [#/volume] in B lood by Automated countOrdered By: Jenna Engle on 01-06-2024 RBC (Bld) [#/Vol] 4.54 10*6/uL Normal 3.60-5.00 [facility] Comment on above: Performed By: #### E SR, CBC, CMP, BNP #### [address] Glucose [Mass/volume] in Ser um or PlasmaOrdered By: Jenna Engle on 01-06-2024 Glucose [Mass/Vol] 85 mg/dL Normal 70-100 [facility] Comment on above: ADA recommended refe rence rangeRandom Glucose Reference Range is dependent on time and content of last meal. Glucose of more than 200 mg/dL in a nonstressed, ambulatory subject supports the diagnosis of Diabetes Mellitus. Result Comment: Bromide om Glucose Reference Range is dependent on time and content of last meal. Glucose of more than 200 mg/dL in a nonstressed, ambulatory subject supports the diagnosis of Diabetes Mellitus. ADA recommended reference range Performed By: #### E SR, CBC, CMP, BNP #### [facility] [address] Hematocrit [Volume Fraction] of Blood by Automated countOrdered By: Jenna Engle on 01-06-2024 Hematocrit (Bld) [Volume fraction] 35.7 % Normal 34.0-46.4 [facility] Comment on above: Performed By: #### E SR, CBC, CMP, BNP #### [address] Hemoglobin [Mass/volume] in BloodOrdered By: Jenna Engle on 01-06-2024 Hemoglobin (Bld) [Mass/Vol] 11.3 g/dL Low 11.8-15.4 [facility] Comment on above: Performed By: #### E SR, CBC, CMP, BNP #### [facility] [address] [place] [address] Leukocytes [#/volume] correc juma for nucleated erythrocytes in Blood by Automated counOrdered By: Jenna Engle on 01-06-2024 WBC corrected for nucl RBC Auto (Bld) [#/Vol] 14.2 10*3/uL 3.8-11.6 [facility] Leukocytes [#/volume] in Blo od by Automated countOrdered By: Jenna Engle on 01-06-2024 WBC (Bld) [#/Vol] 14.2 10*3/uL High 3.8-11.6 [facility] Comment on above: Performed By: #### E SR, CBC, CMP, BNP #### [facility] [address] [place] [address] Lymphocytes [#/volume] in Bl ood by Automated countOrdered By: Jenna Engle on 01-06-2024 Lymphocytes (Bld) [#/Vol] 4.3 10*3/uL Normal 1.00-4.8 [facility] Comment on above: Performed By: #### E SR, CBC, CMP, BNP #### [facility] [address] [place] [address] Lymphocytes/100 leukocytes i n Blood by Automated countOrdered By: Jenna Engle on 01-06-2024 Lymphocytes/100 WBC (Bld) 30.2 % Normal . [facility] Comment on above: Performed By: #### E SR, CBC, CMP, BNP #### [facility] [address] [place] [address] [place] MCH [Entitic mass] by Automa juma countOrdered By: Jenna Engle on 01-06-2024 MCH (RBC) [Entitic mass] 24.9 pg Normal 24.7-34.3 [facility] Comment on above: Performed By: #### E SR, CBC, CMP, BNP #### [facility] [address] [place] [address] MCHC Auto (RBC) [Mass/Vol]Or dered By: Jenna Engle on 01-06-2024 MCHC (RBC) [Mass/Vol] 31.6 g/dL 32.0-35.0 [facility] MCV [Entitic volume] by Auto mated countOrdered By: Jenna Engle on 01-06-2024 MCV (RBC) [Entitic vol] 78.7 fL Low 80-100 [facility] Comment on above: Performed By: #### E SR, CBC, CMP, BNP #### [facility] [address] [place] [address] Neutrophils [#/volume] in Bl ood by Automated countOrdered By: Jenna Engle on 01-06-2024 Neutrophils (Bld) [#/Vol] 8.5 10*3/uL High 1.8-7.7 [facility] Comment on above: Performed By: #### E SR, CBC, CMP, BNP #### [facility] [address] [place] [address] No Panel InformationOrdered By: Jenna Engle on 01-06-2024 Estimated GFR (CKD-EPI) 47.277 mL/Min [facility] Creatinine Clearance (Chem N/A [facility] Nucleated erythrocytes [Pres ence] in Blood by Automated countOrdered By: Jenna Engle on 01-06-2024 Nucleated RBC Auto Ql (Bld) 0.0 /100{WBC} 0-0.5 [facility] Platelet mean volume [Entiti c volume] in Blood by Automated countOrdered By: Jenna Engle on 01-06-2024 Platelet mean volume (Bld) [Entitic vol] 7.2 fL Normal 6.3-10.7 [facility] Comment on above: Performed By: #### E SR, CBC, CMP, BNP #### [facility] [address] [place] [address] Platelets [#/volume] in Bloo d by Automated countOrdered By: Jenna Engle on 01-06-2024 Platelets (Bld) [#/Vol] 330 10*3/uL Normal 150-450 [facility] Comment on above: Performed By: #### E SR, CBC, CMP, BNP #### [facility] [address] [place] [address] Potassium [Moles/volume] in Serum or PlasmaOrdered By: Jenna Engle on 01-06-2024 Potassium [Moles/Vol] 4.5 mmol/L Normal 3.5-5.1 [facility] Comment on above: Performed By: #### E SR, CBC, CMP, BNP #### [facility] [address] [place] [address] Protein [Mass/volume] in Ser um or PlasmaOrdered By: Jenna Engle on 01-06-2024 Protein [Mass/Vol] 7.1 g/dL Normal 6.4-8.9 [facility] Comment on above: Performed By: #### E SR, CBC, CMP, BNP #### [facility] [address] [place] [address] Serum globulin measurement b y calculation (mass/volume)Ordered By: Jenna Engle on 01-06-2024 Globulin (S) [Mass/Vol] 3.2 g/dL [facility] [facility] Comment on above: Performed By: #### E SR, CBC, CMP, BNP #### [facility] [address] [place] [address] Serum or plasma albumin/glob ulin mass ratioOrdered By: Jenna Engle on 01-06-2024 Albumin/Globulin [Mass ratio] 1.2 {ratio} [facility] Comment on above: Performed By: #### E SR, CBC, CMP, BNP #### [facility] [address] [place] [address] Serum or plasma anion gap de terminationOrdered By: Jenna Engle on 01-06-2024 Anion gap [Moles/Vol] 8.8 mmol/L Normal 6.0-15.0 [facility] Comment on above: Performed By: #### E SR, CBC, CMP, BNP #### [facility] [address] [place] [address] [place] Sodium [Moles/volume] in Ser um or PlasmaOrdered By: Jenna Engle on 01-06-2024 Sodium [Moles/Vol] 144 mmol/L Normal 136-145 [facility] Comment on above: Performed By: #### E SR, CBC, CMP, BNP #### [facility] [address] Urea nitrogen [Mass/volume] in Serum or PlasmaOrdered By: Jenna Engle on 01-06-2024 Urea nitrogen [Mass/Vol] 31 mg/dL High 7-25 [facility] Comment on above: Performed By: #### E SR, CBC, CMP, BNP #### [facility] [address] XR chest 2V*on 01-06-2024 XR chest 2V* [facility] [place] [address] [place] [address] XRay Report Signed Patient: Gera Perdue MR#: [id number] : 1945 Acct:[id number] Age/Sex: 78 / F ADM Date: 01/06/24 Loc: XD Room: Type: [facility] Attending Dr: Jenna Engle MD [...] Palma Jr., D.O.01/06/2024 4:08 PM Dictation Location: [place] [address] Transcribed By: [facility] 01/06/24 1608 Dictated By: Rodriguez Palma Jr, DO 01/06/24 1608 Signed By: 01/06/24 1608 Normal [facility] BASIC METABOLIC PANLon 10-23 Anion gap [Moles/Vol] 9 mmol/L Normal 5-15 [facility] Comment on above: Performed By: #### C SRINI, SANTOSH, , 2776-10 #### [facility] ([id number]) [address], [address] [place] [address] Calcium [Mass/Vol] 9.1 mg/dL Normal 8.5-10.5 [facility] Comment on above: Performed By: #### C SRINI, BMP, , 2776-10 #### [facility] ([id number]) [address], [address] [place] [address] Chloride [Moles/Vol] 102 mmol/L Normal 98-109 [facility] Comment on above: Performed By: #### Timmy MILLIGAN, SANTOSH, , 2776-10 #### [facility] ([id number]) [address], [address] [place] [address] CO2 [Moles/Vol] 26 mmol/L Normal 22-32 [facility] Comment on above: Performed By: #### Timmy MILLIGAN, SANTOSH, , 2776-10 #### [facility] ([id number]) [address], [address] [place] [address] Creatinine [Mass/Vol] 1.08 mg/dL High 0.40-1.00 [facility] Comment on above: Result Comment: METH OD TRACEABLE TO IDMS STANDARD Performed By: #### Timmy MILLIGAN, SANTOSH, , 2776-10 #### [facility] ([id number]) [address], [address] [place] [address] GFR/1.73 sq M.predicted among non-blacks MDRD (S/P/Bld) [Vol rate/Area] 53 mL/min/{1.73_m2} Low >59 [facility] Comment on above: Result Comment: Reported eGFR is based on the CKD-EPI 2020 equation that does not use a race coefficient. Performed By: #### C BC, BMP, [address]-10 #### [facility] ([id number]) [address] [place] [address] Glucose [Mass/Vol] 96 mg/dL Normal 65-99 [facility] Comment on above: Performed By: #### C SANTOSH MILLIGAN, , 2776-10 #### [facility] ([id number]) [address] [place] [address] Potassium [Moles/Vol] 4.4 mmol/L Normal 3.5-5.0 [facility] Comment on above: Performed By: #### C SANTOSH MILLIGAN, , 2776-10 #### [facility] ([id number]) [address] [place] [address] Sodium [Moles/Vol] 137 mmol/L Normal 134-146 [facility] Comment on above: Performed By: #### SANTOSH SALEEM, , 2776-10 #### [facility] ([id number]) [address], [address] [place] [address] Urea nitrogen [Mass/Vol] 13 mg/dL Normal 5-27 [facility] Comment on above: Performed By: #### SANTOSH SALEEM, , 2776-10 #### [facility] ([id number]) [address] [place] [address] COMPLETE BLOOD COUNTon 10-23 Erythrocyte distribution width (RBC) [Ratio] 21.6 % High 11.5-15.0 [facility] Comment on above: Performed By: #### SANTOSH SALEEM, , 2776-10 #### [facility] ([id number]) [address], [address] [place] [address] Hematocrit (Bld) [Volume fraction] 25.8 % Low 35-47 [facility] Comment on above: Performed By: #### C SANTOSH MILLIGAN, , 2776-10 #### [facility] ([id number]) [address], [address] [place] [address] Hemoglobin (Bld) [Mass/Vol] 8.5 g/dL Low 11.7-15.5 [facility] Comment on above: Performed By: #### Timmy MILLIGAN, [facility], , 2776-10 #### [facility] ([id number]) [address], [address] [place] [address] MCH (RBC) [Entitic mass] 26.1 pg Low 27-34 [facility] Comment on above: Performed By: #### Timmy MILLIGAN, [facility], , 2776-10 #### [facility] ([id number]) [address], [address] [place] [address] MCHC (RBC) [Mass/Vol] 32.9 g/dL Normal 32-36 [facility] Comment on above: Performed By: #### SANTOSH SALEEM, , 2776-10 #### [facility] ([id number]) [address], [address] [place] [address] MCV (RBC) [Entitic vol] 79 fL Low 80-100 [facility] Comment on above: Performed By: #### SANTOSH SALEEM, , 2776-10 #### [facility] ([id number]) [address], [address] [place] [address] Platelet mean volume (Bld) [Entitic vol] 6.7 fL Low 7-12 [facility] Comment on above: Performed By: #### Timmy MILLIGAN, BMP, , 2776-10 #### [facility] ([id number]) [address], [address] [place] [address] Platelets (Bld) [#/Vol] 551 10*3/uL High 150-450 [facility] Comment on above: Performed By: #### C SANTOSH MILLIGAN, , 2776-10 #### [facility] ([id number]) [address] [place] [address] RBC COUNT 3.26 X10E12/L Low 3.80-5.20 [facility] Comment on above: Performed By: #### C SRINI, SANTOSH, , 2776-10 #### [facility] ([id number]) [address], [address] [place] [address] WBC (Bld) [#/Vol] 10.1 10*3/uL Normal 4.0-11.0 [facility] Comment on above: Performed By: #### SANTOSH SALEEM, , 2776-10 #### [facility] ([id number]) [address], [address] [place] [address] Calcium.ionized (Bld) [Mass/ Vol]on 10-23-2023 IONIZED CALCIUM 4.9 mg/dL Normal 4.5-5.3 [facility] Comment on above: Performed By: #### SANTOSH SALEEM, , 2776-10 #### [facility] ([id number]) [address] [place] [address] MAGNESIUMon 10-23-2023 Magnesium [Mass/Vol] 1.7 mg/dL Low 1.8-2.6 [facility] Comment on above: Performed By: #### SANTOSH SALEEM, , 2776-10 #### [facility] ([id number]) [address], [address] [place] [address] PHOSPHORUSon 10-23-2023 Phosphate [Mass/Vol] 5.1 mg/dL High 2.4-4.9 [facility] Comment on above: Performed By: #### SANTOSH SALEEM, , 2776-10 #### [facility] ([id number]) [address], [address] [place] [address] Rheumatoid factor Nephelomet ry Qn (S)on 10-23-2023 RHEUMATOID FACTOR <10 Normal <20 [facility] Comment on above: Performed By: #### Timmy BC, BMP, , 2776-10 #### [facility] ([id number]) [address], [address] [place] [address] BASIC METABOLIC PANLon 10-22 Anion gap [Moles/Vol] 10 mmol/L Normal 5-15 [facility] Comment on above: Performed By: #### Timmy MILLIGAN, BMP, , 2776-10 #### [facility] ([id number]) [address] [place] [address] Calcium [Mass/Vol] 8.8 mg/dL Normal 8.5-10.5 [facility] Comment on above: Performed By: #### Timmy MILLIGAN, BMP, , 2776-10 #### [facility] ([id number]) [address], [address] [place] [address] Chloride [Moles/Vol] 104 mmol/L Normal 98-109 [facility] Comment on above: Performed By: #### Timmy MILLIGAN, BMP, , 2776-10 #### [facility] ([id number]) [address], [address] [place] [address] CO2 [Moles/Vol] 25 mmol/L Normal 22-32 [facility] Comment on above: Performed By: #### Timmy BC, BMP, , 2776-10 #### [facility] ([id number]) [address], [address] [place] [address] Creatinine [Mass/Vol] 1.02 mg/dL High 0.40-1.00 [facility] Comment on above: Result Comment: METH OD TRACEABLE TO IDMS STANDARD Performed By: #### SANTOSH SALEEM, , 2776-10 #### [facility] ([id number]) [address], [address] [place] [address] GFR/1.73 sq M.predicted among non-blacks MDRD (S/P/Bld) [Vol rate/Area] 57 mL/min/{1.73_m2} Low >59 [facility] Comment on above: Result Comment: Reported eGFR is based on the CKD-EPI 2020 equation that does not use a race coefficient. Performed By: #### SANTOSH SALEEM, , 2776-10 #### [facility] ([id number]) [address] [place] [address] Glucose [Mass/Vol] 86 mg/dL Normal 65-99 [facility] Comment on above: Performed By: #### SANTOSH SALEEM, , 2776-10 #### [facility] ([id number]) [address], [address] [place] [address] Potassium [Moles/Vol] 4.6 mmol/L Normal 3.5-5.0 [facility] Comment on above: Performed By: #### Timmy MILLIGAN, SANTOSH, , 2776-10 #### [facility] ([id number]) [address], [address] [place] [address] Sodium [Moles/Vol] 139 mmol/L Normal 134-146 [facility] Comment on above: Performed By: #### Timmy MILLIGAN, SANTOSH, , 2776-10 #### [facility] ([id number]) [address], [address] [place] [address] Urea nitrogen [Mass/Vol] 13 mg/dL Normal 5-27 [facility] Comment on above: Performed By: #### Timmy MILLIGAN, SANTOSH, , 2776-10 #### [facility] ([id number]) [address], [address] [place] [address] COMPLETE BLOOD COUNTon 10-22 Erythrocyte distribution width (RBC) [Ratio] 22.2 % High 11.5-15.0 [facility] Comment on above: Performed By: #### C SANTOSH MILLIGAN, , 2776-10 #### [facility] ([id number]) [address] [place] [address] Hematocrit (Bld) [Volume fraction] 25.7 % Low 35-47 [facility] Comment on above: Performed By: #### SANTOSH SALEEM, , 2776-10 #### [facility] ([id number]) [address] [place] [address] Hemoglobin (Bld) [Mass/Vol] 8.2 g/dL Low 11.7-15.5 [facility] Comment on above: Performed By: #### SANTOSH SALEEM, , 2776-10 #### [facility] ([id number]) [address], [address] [place] [address] MCH (RBC) [Entitic mass] 26.2 pg Low 27-34 [facility] Comment on above: Performed By: #### SANTOSH SALEEM, , 2776-10 #### [facility] ([id number]) [address], [address] [place] [address] MCHC (RBC) [Mass/Vol] 32.1 g/dL Normal 32-36 [facility] Comment on above: Performed By: #### Timmy MILLIGAN BMP, , 2776-10 #### [facility] ([id number]) [address], [address] [place] [address] MCV (RBC) [Entitic vol] 82 fL Normal 80-100 [facility] Comment on above: Performed By: #### Timmy MILLIGAN BMP, , 2776-10 #### [facility] ([id number]) [address], [address] [place] [address] Platelet mean volume (Bld) [Entitic vol] 6.7 fL Low 7-12 [facility] Comment on above: Performed By: #### Timmy MILLIGAN, SANTOSH, , 2776-10 #### [facility] ([id number]) [address], [address] [place] [address] Platelets (Bld) [#/Vol] 533 10*3/uL High 150-450 [facility] Comment on above: Performed By: #### Timmy MILLIGAN, [facility], , 2776-10 #### [facility] ([id number]) [address], [facility] [address] [place] [address] RBC COUNT 3.14 X10E12/L Low 3.80-5.20 [facility] Comment on above: Performed By: #### Timmy MILLIGAN [facility], , 2776-10 #### [facility] ([id number]) [address], [facility] [address] [place] [address] WBC (Bld) [#/Vol] 9.7 10*3/uL Normal 4.0-11.0 [facility] Comment on above: Performed By: #### SANTOSH SALEEM, , 2776-10 #### [facility] ([id number]) [address] [place] [address] Calcium.ionized (Bld) [Mass/ Vol]on 10-22-2023 IONIZED CALCIUM 4.9 mg/dL Normal 4.5-5.3 [facility] Comment on above: Performed By: #### Timmy MILLIGAN, BMP, , 2776-10 #### [facility] ([id number]) [address] [place] [address] Glucose Glucometer (BldC) [M ass/Vol]on 10-22-2023 Glucose [Mass/Vol] 97 mg/dL Normal 65-99 [facility] MAGNESIUMon 10-22-2023 Magnesium [Mass/Vol] 2.1 mg/dL Normal 1.8-2.6 [facility] Comment on above: Performed By: #### SANTOSH SALEEM, , 2776-10 #### [facility] ([id number]) [address], [address] [place] [address] PHOSPHORUSon 10-22-2023 Phosphate [Mass/Vol] 4.9 mg/dL Normal 2.4-4.9 [facility] Comment on above: Performed By: #### SANTOSH SALEEM, , 2776-10 #### [facility] ([id number]) [address] [place] [address] BASIC METABOLIC PANLon 10-21 Anion gap [Moles/Vol] 7 mmol/L Normal 5-15 [facility] Comment on above: Performed By: #### SANTOSH SALEEM, , 2776-10 ####[facility] ([id number])[address], [place] [address] Calcium [Mass/Vol] 9.0 mg/dL Normal 8.5-10.5 [facility] Comment on above: Performed By: #### SANTOSH SALEEM, , 2776-10 ####[facility] ([id number])[address], [place] [address] Chloride [Moles/Vol] 104 mmol/L Normal 98-109 [facility] Comment on above: Performed By: #### SANTOSH SALEEM, , 2776-10 ####[facility] ([id number])[address], [place] [address] CO2 [Moles/Vol] 26 mmol/L Normal 22-32 [facility] Comment on above: Performed By: #### C SRINI, [facility], , 2776-10 ####[facility] ([id number])[address] [address] [place] [address] Creatinine [Mass/Vol] 1.06 mg/dL High 0.40-1.00 [facility] Comment on above: Result Comment: METH OD TRACEABLE TO IDMS STANDARD Performed By: #### C SRINI [facility], , 2776-10 ####[facility] ([id number])[address] [address], [place] [address] GFR/1.73 sq M.predicted among non-blacks MDRD (S/P/Bld) [Vol rate/Area] 54 mL/min/{1.73_m2} Low >59 [facility] Comment on above: Result Comment: Reported eGFR is based on the CKD-EPI 2020 equation that does not use a race coefficient. Performed By: #### C SRINI [facility], , 2776-10 ####[facility] ([id number])[address] [address], [place] [address] Glucose [Mass/Vol] 88 mg/dL Normal 65-99 [facility] Comment on above: Performed By: #### SANTOSH SALEEM, , 2776-10 ####[facility] ([id number])[address] [address], [place] [address] Potassium [Moles/Vol] 4.5 mmol/L Normal 3.5-5.0 [facility] Comment on above: Performed By: #### C SRINI, SANTOSH, , 2776-10 ####[facility] ([id number])[address] [address], [place] [address] Sodium [Moles/Vol] 137 mmol/L Normal 134-146 [facility] Comment on above: Performed By: #### C SANTOSH MILLIGAN, 300[address]-10 ####[facility] ([id number])[address], [place] [address] Urea nitrogen [Mass/Vol] 12 mg/dL Normal 5-27 [facility] Comment on above: Performed By: #### C SRINI, [facility], , 2776-10 ####[facility] ([id number])[address], [place] [address] COMPLETE BLOOD COUNTon 10-21 Erythrocyte distribution width (RBC) [Ratio] 22.0 % High 11.5-15.0 [facility] Comment on above: Performed By: #### C SRINI, [facility], , 2776-10 ####[facility] ([id number])[address] [address], [place] [address] Hematocrit (Bld) [Volume fraction] 26.3 % Low 35-47 [facility] Comment on above: Performed By: #### Timmy MILLIGAN, [facility], , 2776-10 ####[facility] ([id number])[address] [address], [place] [address] Hemoglobin (Bld) [Mass/Vol] 8.5 g/dL Low 11.7-15.5 [facility] Comment on above: Performed By: #### Timmy MILLIGAN, [facility], , 2776-10 ####[facility] ([id number])[address] [address], [place] [address] MCH (RBC) [Entitic mass] 26.2 pg Low 27-34 [facility] Comment on above: Performed By: #### Timmy BC, [facility], , 2776-10 ####[facility] ([id number])[address] [address] [place] [address] MCHC (RBC) [Mass/Vol] 32.4 g/dL Normal 32-36 [facility] Comment on above: Performed By: #### Timmy MILLIGAN, [facility], , 2776-10 ####[facility] ([id number])[address], [place] [address] MCV (RBC) [Entitic vol] 81 fL Normal 80-100 [facility] Comment on above: Performed By: #### Timmy MILLIGAN, [facility], , 2776-10 ####[facility] ([id number])[address], [place] [address] Platelet mean volume (Bld) [Entitic vol] 6.8 fL Low 7-12 [facility] Comment on above: Performed By: #### Timmy MILLIGAN, [facility], , 2776-10 ####[facility] ([id number])[address], [place] [address] Platelets (Bld) [#/Vol] 611 10*3/uL High 150-450 [facility] Comment on above: Performed By: #### Timmy MILLIGAN, [facility], , 2776-10 ####[facility] ([id number])[address], [place] [address] RBC COUNT 3.25 X10E12/L Low 3.80-5.20 [facility] Comment on above: Performed By: #### Timmy MILLIGAN, SANTOSH, , 2776-10 ####[facility] ([id number])[address], [place] [address] WBC (Bld) [#/Vol] 10.0 10*3/uL Normal 4.0-11.0 [facility] Comment on above: Performed By: #### Timmy MILLIGAN, BMP, , 2776-10 ####[facility] ([id number])[address], [place] [address] CRP [Mass/Vol]on 10-21-2023 C REACTIVE PROTEIN 6.5 mg/dL High 0.000-0.7 4 4 [facility] Comment on above: Performed By: #### 3 8230-9 #### [facility] ([id number]) [address] [place] [address] Calcium.ionized (Bld) [Mass/ Vol]on 10-21-2023 IONIZED CALCIUM 4.9 mg/dL Normal 4.5-5.3 [facility] Comment on above: Performed By: #### 3 8230-9 #### [facility] ([id number]) [address] [place] [address] ESR Photometric method (Bld) [Velocity]on 10-21-2023 ESR, ERYTHROCYTE SEDIMENTATION RATE 74 mm/h High 0-30 [facility] Comment on above: Performed By: #### 3 8230-9 #### [facility] ([id number]) [address] [place] [address] Glucose Glucometer (BldC) [M ass/Vol]on 10-21-2023 Glucose [Mass/Vol] 124 mg/dL High 65-99 [facility] Glucose [Mass/Vol] 135 mg/dL High 65-99 [facility] Glucose [Mass/Vol] 126 mg/dL High 65-99 [facility] Glucose [Mass/Vol] 91 mg/dL Normal 65-99 [facility] MAGNESIUMon 10-21-2023 Magnesium [Mass/Vol] 2.6 mg/dL Normal 1.8-2.6 [facility] Comment on above: Performed By: #### 3 8230-9 #### [facility] ([id number]) [address] [place] [address] Magnesium [Mass/Vol] 1.9 mg/dL Normal 1.8-2.6 [facility] Comment on above: Performed By: #### C BC, BMP, 54051-5, 2777-1 ####[facility] ([id number])[address], [place] [address] PHOSPHORUSon 10-21-2023 Phosphate [Mass/Vol] 4.3 mg/dL Normal 2.4-4.9 [facility] Comment on above: Performed By: #### 3 8230-9 #### [facility] ([id number]) [address] [place] [address] XR WRIST LT MIN 3 VWSon 09-28 [...] Morin MD on 10/21/2023 10:28 AM Normal [facility] BASIC METABOLIC PANLon 10-20 Anion gap [Moles/Vol] 7 mmol/L Normal 5-15 [facility] Comment on above: Performed By: #### C SRINI, BMP, , 2776-10 ####[facility] ([id number])[address] [place] [address] Calcium [Mass/Vol] 8.6 mg/dL Normal 8.5-10.5 [facility] Comment on above: Performed By: #### C SRINI, BMP, , 2777-1 ####[facility] ([id number])[address] [place] [address] Chloride [Moles/Vol] 107 mmol/L Normal 98-109 [facility] Comment on above: Performed By: #### C BC, BMP, , 2777-1 ####[facility] ([id number])[address], [place] [address] CO2 [Moles/Vol] 25 mmol/L Normal 22-32 [facility] Comment on above: Performed By: #### SANTOSH SALEEM, , 2776-10 ####[facility] ([id number])[address] [address] [place] [address] Creatinine [Mass/Vol] 1.16 mg/dL High 0.40-1.00 [facility] Comment on above: Result Comment: METH OD TRACEABLE TO IDMS STANDARD Performed By: #### C SANTOSH MLILIGAN, , 2776-10 ####[facility] ([id number])[address] [address], [place] [address] GFR/1.73 sq M.predicted among non-blacks MDRD (S/P/Bld) [Vol rate/Area] 49 mL/min/{1.73_m2} Low >59 [facility] Comment on above: Result Comment: Reported eGFR is based on the CKD-EPI 2020 equation that does not use a race coefficient. Performed By: #### SANTOSH SALEEM, , 2776-10 ####[facility] ([id number])[address] [address], [place] [address] Glucose [Mass/Vol] 80 mg/dL Normal 65-99 [facility] Comment on above: Performed By: #### SANTOSH SALEEM, , 2776-10 ####[facility] ([id number])0 [address] [address] [place] [address] Potassium [Moles/Vol] 4.6 mmol/L Normal 3.5-5.0 [facility] Comment on above: Performed By: #### SANTOSH SALEEM, 2776-10 ####[facility] ([id number])0 [address] [address] [place] [address] Sodium [Moles/Vol] 139 mmol/L Normal 134-146 [facility] Comment on above: Performed By: #### C BC, [facility], , 2776-10 ####[facility] ([id number])[address] [address] Urea nitrogen [Mass/Vol] 12 mg/dL Normal 5-27 [facility] Comment on above: Performed By: #### Timmy BC, [facility], , 2776-10 ####[facility] ([id number])[address] [address] COMPLETE BLOOD COUNTon 10-20 Erythrocyte distribution width (RBC) [Ratio] 22.5 % High 11.5-15.0 [facility] Comment on above: Performed By: #### Timmy MILLIGAN, [facility], , 2776-10 ####[facility] ([id number])[address] [address] Hematocrit (Bld) [Volume fraction] 24.8 % Low 35-47 [facility] Comment on above: Performed By: #### Timmy MILLIGAN, [facility], , 2776-10 ####[facility] ([id number])[address] [address] Hemoglobin (Bld) [Mass/Vol] 8.1 g/dL Low 11.7-15.5 [facility] Comment on above: Performed By: #### Timmy BC, [facility], , 2776-10 ####[facility] ([id number])[address] [address] MCH (RBC) [Entitic mass] 26.2 pg Low 27-34 [facility] Comment on above: Performed By: #### Timmy BC, [facility], , 2776-10 ####[facility] ([id number])[address] [address] MCHC (RBC) [Mass/Vol] 32.4 g/dL Normal 32-36 [facility] Comment on above: Performed By: #### SANTOSH SALEEM, , 2776-10 ####[facility] ([id number])[address] [address] MCV (RBC) [Entitic vol] 81 fL Normal 80-100 [facility] Comment on above: Performed By: #### SANTOSH SALEEM, , 2776-10 ####[facility] ([id number])[address], [address] [address] Platelet mean volume (Bld) [Entitic vol] 6.7 fL Low 7-12 [facility] Comment on above: Performed By: #### SANTOSH SALEEM, , 2776-10 ####[facility] ([id number])[address] [address] Platelets (Bld) [#/Vol] 554 10*3/uL High 150-450 [facility] Comment on above: Performed By: #### SANTOSH SALEEM, , 2776-10 ####[facility] ([id number])[address] [address] RBC COUNT 3.08 X10E12/L Low 3.80-5.20 [facility] Comment on above: Performed By: #### SANTOSH SALEEM, , 2776-10 ####[facility] ([id number])[address] [address] WBC (Bld) [#/Vol] 9.3 10*3/uL Normal 4.0-11.0 [facility] Comment on above: Performed By: #### SANTOSH SALEEM, , 2776-10 ####[facility] ([id number])[address], [place] [address] Glucose Glucometer (BldC) [M ass/Vol]on 10-20-2023 Glucose [Mass/Vol] 108 mg/dL High 65-99 [facility] Glucose [Mass/Vol] 115 mg/dL High 65-99 [facility] Glucose [Mass/Vol] 140 mg/dL High 65-99 [facility] Glucose [Mass/Vol] 94 mg/dL Normal 65-99 [facility] MAGNESIUMon 10-20-2023 Magnesium [Mass/Vol] 1.7 mg/dL Low 1.8-2.6 [facility] Comment on above: Performed By: #### SANTOSH SALEEM, , 2776-10 ####[facility] ([id number])[address], [place] [address] PHOSPHORUSon 10-20-2023 Phosphate [Mass/Vol] 4.2 mg/dL Normal 2.4-4.9 [facility] Comment on above: Performed By: #### SANTOSH SALEEM, , 2776-10 ####[facility] ([id number])[address] [place] [address] BASIC METABOLIC PANLon 10-19 Anion gap [Moles/Vol] 8 mmol/L Normal 5-15 [facility] Comment on above: Performed By: #### SANTOSH SALEEM, , 2776-10 ####[facility] ([id number])[address] [place] [address] Calcium [Mass/Vol] 8.3 mg/dL Low 8.5-10.5 [facility] Comment on above: Performed By: #### SANTOSH SALEEM, , 2776-10 ####[facility] ([id number])[address] [place] [address] Chloride [Moles/Vol] 107 mmol/L Normal 98-109 [facility] Comment on above: Performed By: #### C SANTOSH MILLIGAN, , 2776-10 ####[facility] ([id number])[address], [address], [place] [address] CO2 [Moles/Vol] 24 mmol/L Normal 22-32 [facility] Comment on above: Performed By: #### C SANTOSH MILLIGAN, , 2776-10 ####[facility] ([id number])[address] [place] [address] Creatinine [Mass/Vol] 1.05 mg/dL High 0.40-1.00 [facility] Comment on above: Result Comment: METH OD TRACEABLE TO IDMS STANDARD Performed By: #### C SANTOSH MILLIGAN, , 2776-10 ####[facility] ([id number])[address], [place] [address] GFR/1.73 sq M.predicted among non-blacks MDRD (S/P/Bld) [Vol rate/Area] 55 mL/min/{1.73_m2} Low >59 [facility] Comment on above: Result Comment: Reported eGFR is based on the CKD-EPI 2020 equation that does not use a race coefficient. Performed By: #### C SANTOSH MILLIGAN, , 2776-10 ####[facility] ([id number])[address] [address] [place] [address] Glucose [Mass/Vol] 82 mg/dL Normal 65-99 [facility] Comment on above: Performed By: #### C SANTOSH MILLIGAN, , 2776-10 ####[facility] ([id number])[address], [address], [place] [address] Potassium [Moles/Vol] 4.3 mmol/L Normal 3.5-5.0 [facility] Comment on above: Performed By: #### C SRINI, [facility], , 2776-10 ####[facility] ([id number])[address], [address], [place] [address] Sodium [Moles/Vol] 139 mmol/L Normal 134-146 [facility] Comment on above: Performed By: #### C , [facility], , 2776-10 ####[facility] ([id number])[address] [address], [place] [address] Urea nitrogen [Mass/Vol] 10 mg/dL Normal 5-27 [facility] Comment on above: Performed By: #### C SRINI, [facility], , 2776-10 ####[facility] ([id number])[address], [place] [address] COMPLETE BLOOD COUNTon 10-19 Erythrocyte distribution width (RBC) [Ratio] 22.7 % High 11.5-15.0 [facility] Comment on above: Performed By: #### C SRINI, [facility], , 2776-10 ####[facility] ([id number])[address] [address], [place] [address] Hematocrit (Bld) [Volume fraction] 24.4 % Low 35-47 [facility] Comment on above: Performed By: #### C SRINI, [facility], , 2776-10 ####[facility] ([id number])[address] [address], [place] [address] Hemoglobin (Bld) [Mass/Vol] 7.8 g/dL Low 11.7-15.5 [facility] Comment on above: Performed By: #### C BC, BMP, , 2776-10 ####[facility] ([id number])[address] [address], [place] [address] MCH (RBC) [Entitic mass] 25.9 pg Low 27-34 [facility] Comment on above: Performed By: #### Timmy MILLIGAN, SANTOSH, , 2776-10 ####[facility] ([id number])[address], [address], [place] [address] MCHC (RBC) [Mass/Vol] 31.8 g/dL Low 32-36 [facility] Comment on above: Performed By: #### Timmy MILLIGAN, SANTOSH, , 2776-10 ####[facility] ([id number])[address], [address], [place] [address] MCV (RBC) [Entitic vol] 82 fL Normal 80-100 [facility] Comment on above: Performed By: #### Timmy MILLIGAN, SANTOSH, , 2776-10 ####[facility] ([id number])[address], [address], [place] [address] Platelet mean volume (Bld) [Entitic vol] 6.6 fL Low 7-12 [facility] Comment on above: Performed By: #### SANTOSH SALEEM, , 2776-10 ####[facility] ([id number])[address], [address] [place] [address] Platelets (Bld) [#/Vol] 533 10*3/uL High 150-450 [facility] Comment on above: Performed By: #### SANTOSH SALEEM, , 2776-10 ####[facility] ([id number])[address], [address], [place] [address] RBC COUNT 2.99 X10E12/L Low 3.80-5.20 [facility] Comment on above: Performed By: #### Timmy MILLIGAN, SANTOSH, , 2776-10 ####[facility] ([id number])[address], [address], [place] [address] WBC (Bld) [#/Vol] 9.9 10*3/uL Normal 4.0-11.0 [facility] Comment on above: Performed By: #### C SANTOSH MILLIGAN, , 2776-10 ####[facility] ([id number])[address], [address] [place] [address] Calcium.ionized (Bld) [Mass/ Vol]on 10-19-2023 IONIZED CALCIUM 4.9 mg/dL Normal 4.5-5.3 [facility] Comment on above: Performed By: #### 3 8230-9 ####[facility] ([id number])[address], [address] [place] [address] Glucose Glucometer (BldC) [M ass/Vol]on 10-19-2023 Glucose [Mass/Vol] 102 mg/dL High 65-99 [facility] Glucose [Mass/Vol] 117 mg/dL High 65-99 [facility] Glucose [Mass/Vol] 103 mg/dL High 65-99 [facility] MAGNESIUMon 10-19-2023 Magnesium [Mass/Vol] 2.0 mg/dL Normal 1.8-2.6 [facility] Comment on above: Performed By: #### C SANTOSH MILLIGAN, , 2776-10 ####[facility] ([id number])[address], [address] [place] [address] PHOSPHORUSon 10-19-2023 Phosphate [Mass/Vol] 4.3 mg/dL Normal 2.4-4.9 [facility] Comment on above: Performed By: #### C SANTOSH MILLIGAN, , 2776-10 ####[facility] ([id number])[address], [address] [place] [address] BASIC METABOLIC PANLon 10-18 Anion gap [Moles/Vol] 10 mmol/L Normal 5-15 [facility] Comment on above: Performed By: #### C SANTOSH MILLIGAN, , 2776-10, 3083-10 ####[facility] ([id number])[address] [address], [place] [address] Calcium [Mass/Vol] 8.5 mg/dL Normal 8.5-10.5 [facility] Comment on above: Performed By: #### C BC, BMP, , 2776-10, 3083-1 ####[facility] ([id number])[address] [address] Chloride [Moles/Vol] 107 mmol/L Normal 98-109 [facility] Comment on above: Performed By: #### C SRINI, BMP, , 2776-10, 3083- ####[facility] ([id number])[address] [address] CO2 [Moles/Vol] 23 mmol/L Normal 22-32 [facility] Comment on above: Performed By: #### C SRINI, BMP, , 2776-10, 3083- ####[facility] ([id number])[address] [address] Creatinine [Mass/Vol] 1.17 mg/dL High 0.40-1.00 [facility] Comment on above: Result Comment: METH OD TRACEABLE TO IDMS STANDARD Performed By: #### Timmy BC, BMP, , 2776-10, 3083-10 ####[facility] ([id number])[address] [address] GFR/1.73 sq M.predicted among non-blacks MDRD (S/P/Bld) [Vol rate/Area] 48 mL/min/{1.73_m2} Low >59 [facility] Comment on above: Result Comment: Reported eGFR is based on the CKD-EPI 2020 equation that does not use a race coefficient. Performed By: #### C BC, BMP, , 2776-10, 3083- ####[facility] ([id number])[address] [address], [place] [address] Glucose [Mass/Vol] 82 mg/dL Normal 65-99 [facility] Comment on above: Performed By: #### C BC, BMP, , 2776-10, 3083- ####[facility] ([id number])[address] [address], [place] [address] Potassium [Moles/Vol] 4.0 mmol/L Normal 3.5-5.0 [facility] Comment on above: Performed By: #### C BC, BMP, , 2776-10, 3083- ####[facility] ([id number])[address] [address], [place] [address] Sodium [Moles/Vol] 140 mmol/L Normal 134-146 [facility] Comment on above: Performed By: #### C BC, BMP, , 2776-10, 3083- ####[facility] ([id number])[address] [address], [place] [address] Urea nitrogen [Mass/Vol] 11 mg/dL Normal 5-27 [facility] Comment on above: Performed By: #### C BC, BMP, , 2776-10, 3083- ####[facility] ([id number])[address] [address], [place] [address] COMPLETE BLOOD COUNTon 10-18 Erythrocyte distribution width (RBC) [Ratio] 21.2 % High 11.5-15.0 [facility] Comment on above: Performed By: #### C BC, BMP, , 2776-10, 3083-1 ####[facility] ([id number])[address] [address] Hematocrit (Bld) [Volume fraction] 24.6 % Low 35-47 [facility] Comment on above: Performed By: #### C SRINI, BMP, , 2776-10, 3083-10 ####[facility] ([id number])[address], [address] [place] [address] Hemoglobin (Bld) [Mass/Vol] 7.9 g/dL Low 11.7-15.5 [facility] Comment on above: Performed By: #### C SRINI, BMP, , 2776-10, 3083-10 ####[facility] ([id number])[address], [address] [place] [address] MCH (RBC) [Entitic mass] 26.2 pg Low 27-34 [facility] Comment on above: Performed By: #### Timmy MILLIGAN, BMP, , 2776-10, 3083-10 ####[facility] ([id number])[address], [address] [place] [address] MCHC (RBC) [Mass/Vol] 32.2 g/dL Normal 32-36 [facility] Comment on above: Performed By: #### Timmy MILLIGAN, BMP, , 2776-10, 3083-10 ####[facility] ([id number])[address], [address] [place] [address] MCV (RBC) [Entitic vol] 81 fL Normal 80-100 [facility] Comment on above: Performed By: #### Timmy BC, BMP, , 2776-10, 3083-10 ####[facility] ([id number])[address], [address] [place] [address] Platelet mean volume (Bld) [Entitic vol] 6.5 fL Low 7-12 [facility] Comment on above: Performed By: #### Timmy BC, BMP, , 2776-10, 3083-10 ####[facility] ([id number])[address], [address] [place] [address] Platelets (Bld) [#/Vol] 522 10*3/uL High 150-450 [facility] Comment on above: Performed By: #### C BC, BMP, , 2776-10, 3083-10 ####[facility] ([id number])[address], [address] [place] [address] RBC COUNT 3.03 X10E12/L Low 3.80-5.20 [facility] Comment on above: Performed By: #### C BC, BMP, , 2776-10, 3083-10 ####[facility] ([id number])[address], [address] [place] [address] WBC (Bld) [#/Vol] 9.3 10*3/uL Normal 4.0-11.0 [facility] Comment on above: Performed By: #### C SRINI, BMP, , 2776-10, 3083-10 ####[facility] ([id number])[address] [address] [place] [address] Calcium.ionized (Bld) [Mass/ Vol]on 10-18-2023 IONIZED CALCIUM 4.9 mg/dL Normal 4.5-5.3 [facility] Comment on above: Performed By: #### 3 8230-9 ####[facility] ([id number])[address] [address] [place] [address] Glucose Glucometer (BldC) [M ass/Vol]on 10-18-2023 Glucose [Mass/Vol] 108 mg/dL High 65-99 [facility] Glucose [Mass/Vol] 134 mg/dL High 65-99 [facility] Glucose [Mass/Vol] 127 mg/dL High 65-99 [facility] Glucose [Mass/Vol] 102 mg/dL High 65-99 [facility] MAGNESIUMon 10-18-2023 Magnesium [Mass/Vol] 1.7 mg/dL Low 1.8-2.6 [facility] Comment on above: Performed By: #### C BC, BMP, [address]-8, 2777-1, 3084-1 ####[facility] ([id number])[address], [address] [place], [place] [address] MR CERVICAL SPINE WO CONTon 10-18-2023 MR [...] William MD on 10/18/2023 2:39 AM Normal [facility] MR LUMBAR SPINE WO CONTon MR [...] William MD on 10/18/2023 3:37 AM Normal [facility] MR THORACIC SPINE WO CONTon 10-18-2023 [...] William MD on 10/18/2023 3:25 AM Normal [facility] PHOSPHORUSon 10-18-2023 Phosphate [Mass/Vol] 4.1 mg/dL Normal 2.4-4.9 [facility] Comment on above: Performed By: #### C BC, BMP, 38096-1, 2777-1, 3084-1 ####[facility] ([id number])[address], [address] [place] [address] URIC ACIDon 10-18-2023 Urate [Mass/Vol] 4.7 mg/dL Normal 2.6-7.2 [facility] Comment on above: Performed By: #### C BC, BMP, 94500-8, 2777-1, 3084-1 ####[facility] ([id number])[address], [address] [place] [address] XR WRIST RT 2 VWSon 10-18-20 23 [...] Rod MD on 10/18/2023 2:24 PM Normal [facility] BASIC METABOLIC PANLon 10-17 Anion gap [Moles/Vol] 8 mmol/L Normal 5-15 [facility] Comment on above: Performed By: #### 1 7928-3 #### [facility] ([id number]) [address], [address] [place] [address] Calcium [Mass/Vol] 8.5 mg/dL Normal 8.5-10.5 [facility] Comment on above: Performed By: #### 1 7928-3 #### [facility] ([id number]) [address], [address] [place] [address] Chloride [Moles/Vol] 105 mmol/L Normal 98-109 [facility] Comment on above: Performed By: #### 1 7928-3 #### [facility] ([id number]) [address], [address] [place] [address] CO2 [Moles/Vol] 24 mmol/L Normal 22-32 [facility] Comment on above: Performed By: #### 1 7928-3 #### [facility] ([id number]) [address], [address] [place] [address] Creatinine [Mass/Vol] 1.03 mg/dL High 0.40-1.00 [facility] Comment on above: Result Comment: METH OD TRACEABLE TO IDMS STANDARD Performed By: #### 1 7928-3 #### [facility] ([id number]) [address], [address] [place] [address] GFR/1.73 sq M.predicted among non-blacks MDRD (S/P/Bld) [Vol rate/Area] 56 mL/min/{1.73_m2} Low >59 [facility] Comment on above: Result Comment: Reported eGFR is based on the CKD-EPI 2020 equation that does not use a race coefficient. Performed By: #### 1 7928-3 #### [facility] ([id number]) [address], [address] [place] [address] Glucose [Mass/Vol] 88 mg/dL Normal 65-99 [facility] Comment on above: Performed By: #### 1 7928-3 #### [facility] ([id number]) [address], [address] [place] [address] Potassium [Moles/Vol] 4.2 mmol/L Normal 3.5-5.0 [facility] Comment on above: Performed By: #### 1 7928-3 #### [facility] ([id number]) [address], [address] [place] [address] Sodium [Moles/Vol] 137 mmol/L Normal 134-146 [facility] Comment on above: Performed By: #### 1 7928-3 #### [facility] ([id number]) [address], [address] [place] [address] Urea nitrogen [Mass/Vol] 13 mg/dL Normal 5-27 [facility] Comment on above: Performed By: #### 1 7928-3 #### [facility] ([id number]) [address] [place] [address] COMPLETE BLOOD COUNTon 10-17 Erythrocyte distribution width (RBC) [Ratio] 21.4 % High 11.5-15.0 [facility] Comment on above: Performed By: #### 1 7928-3 #### [facility] ([id number]) [address], [address] [place] [address] Hematocrit (Bld) [Volume fraction] 25.0 % Low 35-47 [facility] Comment on above: Performed By: #### 1 7928-3 #### [facility] ([id number]) [address], [address] [place] [address] Hemoglobin (Bld) [Mass/Vol] 7.9 g/dL Low 11.7-15.5 [facility] Comment on above: Performed By: #### 1 7928-3 #### [facility] ([id number]) [address], [address] [place] [address] MCH (RBC) [Entitic mass] 25.4 pg Low 27-34 [facility] Comment on above: Performed By: #### 1 7928-3 #### [facility] ([id number]) [address], [address] [place] [address] MCHC (RBC) [Mass/Vol] 31.4 g/dL Low 32-36 [facility] Comment on above: Performed By: #### 1 7928-3 #### [facility] ([id number]) [address], [facility] [address] [place] [address] MCV (RBC) [Entitic vol] 81 fL Normal 80-100 [facility] Comment on above: Performed By: #### 1 7928-3 #### [facility] ([id number]) [address], [facility] [address] [place] [address] Platelet mean volume (Bld) [Entitic vol] 6.6 fL Low 7-12 [facility] Comment on above: Performed By: #### 1 7928-3 #### [facility] ([id number]) [address], [facility] [address] [place] [address] Platelets (Bld) [#/Vol] 519 10*3/uL High 150-450 [facility] Comment on above: Performed By: #### 1 7928-3 #### [facility] ([id number]) [address], [address] [place] [address] RBC COUNT 3.09 X10E12/L Low 3.80-5.20 [facility] Comment on above: Performed By: #### 1 7928-3 #### [facility] ([id number]) [address], [address] [place] [address] WBC (Bld) [#/Vol] 10.7 10*3/uL Normal 4.0-11.0 [facility] Comment on above: Performed By: #### 1 7928-3 #### [facility] ([id number]) [address], [address] [place] [address] Calcium.ionized (Bld) [Mass/ Vol]on 10-17-2023 IONIZED CALCIUM 4.8 mg/dL Normal 4.5-5.3 [facility] Comment on above: Performed By: #### 1 7928-3 #### [facility] ([id number]) [address], [address] [place] [address] Glucose Glucometer (BldC) [M ass/Vol]on 10-17-2023 Glucose [Mass/Vol] 106 mg/dL High 65-99 [facility] Glucose [Mass/Vol] 96 mg/dL Normal 65-99 [facility] Glucose [Mass/Vol] 123 mg/dL High 65-99 [facility] Glucose [Mass/Vol] 88 mg/dL Normal 65-99 [facility] MAGNESIUMon 10-17-2023 Magnesium [Mass/Vol] 2.1 mg/dL Normal 1.8-2.6 [facility] Comment on above: Performed By: #### 1 7928-3 #### [facility] ([id number]) [address], [address] [place] [address] PHOSPHORUSon 10-17-2023 Phosphate [Mass/Vol] 3.8 mg/dL Normal 2.4-4.9 [facility] Comment on above: Result Comment: SPEC IMEN HEMOLYZED, RESULTS INCREASED SLIGHTLY HEMOLYZED Performed By: #### 1 7928-3 #### [facility] ([id number]) [address] [place] [address] BASIC METABOLIC PANLon 10-16 Anion gap [Moles/Vol] 10 mmol/L Normal 5-15 [facility] Comment on above: Performed By: #### E LEC #### [facility] ([id number]) [address], [address] [place] [address] Calcium [Mass/Vol] 9.0 mg/dL Normal 8.5-10.5 [facility] Comment on above: Performed By: #### E LEC #### [facility] ([id number]) [address] [place] [address] Chloride [Moles/Vol] 106 mmol/L Normal 98-109 [facility] Comment on above: Performed By: #### E LEC #### [facility] ([id number]) [address] [place] [address] CO2 [Moles/Vol] 22 mmol/L Normal 22-32 [facility] Comment on above: Performed By: #### E LEC #### [facility] ([id number]) [address], [address] [place] [address] Creatinine [Mass/Vol] 1.03 mg/dL High 0.40-1.00 [facility] Comment on above: Result Comment: METH OD TRACEABLE TO IDMS STANDARD Performed By: #### E LEC #### [facility] ([id number]) [address] [place] [address] GFR/1.73 sq M.predicted among non-blacks MDRD (S/P/Bld) [Vol rate/Area] 56 mL/min/{1.73_m2} Low >59 [facility] Comment on above: Result Comment: Reported eGFR is based on the CKD-EPI 2020 equation that does not use a race coefficient. Performed By: #### E LEC #### [facility] ([id number]) [address] [place] [address] Glucose [Mass/Vol] 87 mg/dL Normal 65-99 [facility] Comment on above: Performed By: #### E LEC #### [facility] ([id number]) [address], [address] [place] [address] Potassium [Moles/Vol] 4.4 mmol/L Normal 3.5-5.0 [facility] Comment on above: Performed By: #### E LEC #### [facility] ([id number]) [address], [address] [place] [address] Sodium [Moles/Vol] 138 mmol/L Normal 134-146 [facility] Comment on above: Performed By: #### E LEC #### [facility] ([id number]) [address], [address] [place] [address] Urea nitrogen [Mass/Vol] 13 mg/dL Normal 5-27 [facility] Comment on above: Performed By: #### E LEC #### [facility] ([id number]) [address] [address] CK [Catalytic activity/Vol]o n 10-16-2023 CPK 35 U/L Normal 24-170 [facility] Comment on above: Performed By: #### 1 7928-3 #### [facility] ([id number]) [address] [place] [address] COMPLETE BLOOD COUNTon 10-16 Erythrocyte distribution width (RBC) [Ratio] 20.1 % High 11.5-15.0 [facility] Comment on above: Performed By: #### E LEC #### [facility] ([id number]) [address] [address] [place] [address] Hematocrit (Bld) [Volume fraction] 26.5 % Low 35-47 [facility] Comment on above: Performed By: #### E LEC #### [facility] ([id number]) [address] [address] [place] [address] Hemoglobin (Bld) [Mass/Vol] 8.5 g/dL Low 11.7-15.5 [facility] Comment on above: Performed By: #### E LEC #### [facility] ([id number]) [address], [address] [place] [address] MCH (RBC) [Entitic mass] 25.9 pg Low 27-34 [facility] Comment on above: Performed By: #### E LEC #### [facility] ([id number]) [address], [address] [place] [address] MCHC (RBC) [Mass/Vol] 32.1 g/dL Normal 32-36 [facility] Comment on above: Performed By: #### E LEC #### [facility] ([id number]) [address] [place] [address] MCV (RBC) [Entitic vol] 81 fL Normal 80-100 [facility] Comment on above: Performed By: #### E LEC #### [facility] ([id number]) [address], [address] [place] [address] Platelet mean volume (Bld) [Entitic vol] 6.8 fL Low 7-12 [facility] Comment on above: Performed By: #### E LEC #### [facility] ([id number]) [address] [place] [address] Platelets (Bld) [#/Vol] 633 10*3/uL High 150-450 [facility] Comment on above: Performed By: #### E LEC #### [facility] ([id number]) [address] [place] [address] RBC COUNT 3.28 X10E12/L Low 3.80-5.20 [facility] Comment on above: Performed By: #### E LEC #### [facility] ([id number]) [address] [place] [address] WBC (Bld) [#/Vol] 16.2 10*3/uL High 4.0-11.0 [facility] Comment on above: Performed By: #### E LEC #### [facility] ([id number]) [address], [address] [place] [address] Calcium.ionized (Bld) [Mass/ Vol]on 10-16-2023 IONIZED CALCIUM 5.0 mg/dL Normal 4.5-5.3 [facility] Comment on above: Performed By: #### E LEC #### [facility] ([id number]) [address], [address] [place] [address] Glucose Glucometer (BldC) [M ass/Vol]on 10-16-2023 Glucose [Mass/Vol] 119 mg/dL High 65-99 [facility] Glucose [Mass/Vol] 128 mg/dL High 65-99 [facility] Glucose [Mass/Vol] 125 mg/dL High 65-99 [facility] Glucose [Mass/Vol] 88 mg/dL Normal 65-99 [facility] LIVER PANELon 10-16-2023 Albumin [Mass/Vol] 2.6 g/dL Low 3.2-5.3 [facility] [facility] Comment on above: Performed By: #### 1 7928-3 #### [facility] ([id number]) [address], [address] [place] [address] ALP [Catalytic activity/Vol] 104 U/L Normal 39-130 [facility] Comment on above: Performed By: #### 1 7928-3 #### [facility] ([id number]) [address], [address] [place] [address] ALT [Catalytic activity/Vol] 6 U/L Normal 0-31 [facility] Comment on above: Performed By: #### 1 7928-3 #### [facility] ([id number]) [address], [address] [place] [address] AST [Catalytic activity/Vol] 16 U/L Normal 0-41 [facility] Comment on above: Performed By: #### 1 7928-3 #### [facility] ([id number]) [address], [address] [place] [address] Bilirubin [Mass/Vol] 0.3 mg/dL Normal 0.3-1.2 [facility] Comment on above: Performed By: #### 1 7928-3 #### [facility] ([id number]) [address], [address] [place] [address] Bilirubin.direct [Mass/Vol] 0.1 mg/dL Normal 0.0-0.4 [facility] Comment on above: Performed By: #### 1 7928-3 #### [facility] ([id number]) [address], [address] [place] [address] Protein [Mass/Vol] 6.9 g/dL Normal 6.0-8.0 [facility] Comment on above: Performed By: #### 1 7928-3 #### [facility] ([id number]) [address], [address] [place] [address] MAGNESIUMon 10-16-2023 Magnesium [Mass/Vol] 2.9 mg/dL High 1.8-2.6 [facility] Comment on above: Performed By: #### E LEC #### [facility] ([id number]) [address], [address] [place] [address] PHOSPHORUSon 10-16-2023 Phosphate [Mass/Vol] 4.3 mg/dL Normal 2.4-4.9 [facility] Comment on above: Performed By: #### 1 7928-3 #### [facility] ([id number]) [address], [address] [place] [address] BASIC METABOLIC PANLon 10-15 Anion gap [Moles/Vol] 9 mmol/L Normal 5-15 [facility] Comment on above: Performed By: #### C BC, BMP, 31287-8, 2777-1 #### [facility] ([id number]) [address], [address] [place] [address] Calcium [Mass/Vol] 9.4 mg/dL Normal 8.5-10.5 [facility] Comment on above: Performed By: #### SANTOSH SALEEM, , 2776-10 #### [facility] ([id number]) [address], [address] [place] [address] Chloride [Moles/Vol] 103 mmol/L Normal 98-109 [facility] Comment on above: Performed By: #### SANTOSH SALEEM, , 2776-10 #### [facility] ([id number]) [address], [address] [place] [address] CO2 [Moles/Vol] 23 mmol/L Normal 22-32 [facility] Comment on above: Performed By: #### SANTOSH SALEEM, , 2776-10 #### [facility] ([id number]) [address], [address] [place] [address] Creatinine [Mass/Vol] 0.94 mg/dL Normal 0.40-1.00 [facility] Comment on above: Result Comment: METH OD TRACEABLE TO IDMS STANDARD Performed By: #### SANTOSH SALEEM, , 2776-10 #### [facility] ([id number]) [address], [address] [place] [address] GFR/1.73 sq M.predicted among non-blacks MDRD (S/P/Bld) [Vol rate/Area] 62 mL/min/{1.73_m2} Normal >59 [facility] Comment on above: Result Comment: Reported eGFR is based on the CKD-EPI 2020 equation that does not use a race coefficient. Performed By: #### SANTOSH SALEEM, , 2776-10 #### [facility] ([id number]) [address], [address] [place] [address] Glucose [Mass/Vol] 89 mg/dL Normal 65-99 [facility] Comment on above: Performed By: #### C SRINI, BMP, , 2776-10 #### [facility] ([id number]) [address], [address] [place] [address] Potassium [Moles/Vol] 4.2 mmol/L Normal 3.5-5.0 [facility] Comment on above: Performed By: #### Timmy MILLIGAN, BMP, , 2776-10 #### [facility] ([id number]) [address], [address] [place] [address] Sodium [Moles/Vol] 135 mmol/L Normal 134-146 [facility] Comment on above: Performed By: #### Timmy MILLIGAN, BMP, , 2776-10 #### [facility] ([id number]) [address] [place] [address] Urea nitrogen [Mass/Vol] 13 mg/dL Normal 5-27 [facility] Comment on above: Performed By: #### Timmy MILLIGAN, BMP, , 2776-10 #### [facility] ([id number]) [address], [address] [place] [address] COMPLETE BLOOD COUNTon 10-15 Erythrocyte distribution width (RBC) [Ratio] 18.7 % High 11.5-15.0 [facility] Comment on above: Performed By: #### Timmy MILLIGAN, BMP, , 2776-10 #### [facility] ([id number]) [address], [address] [place] [address] Hematocrit (Bld) [Volume fraction] 29.7 % Low 35-47 [facility] Comment on above: Performed By: #### Timmy MILLIGAN, BMP, , 2776-10 #### [facility] ([id number]) [address], [address] [place] [address] Hemoglobin (Bld) [Mass/Vol] 9.3 g/dL Low 11.7-15.5 [facility] Comment on above: Performed By: #### SANTOSH SALEEM, , 2776-10 #### [facility] ([id number]) [address], [address] [place] [address] MCH (RBC) [Entitic mass] 25.1 pg Low 27-34 [facility] Comment on above: Performed By: #### Timmy MILLIGAN, BMP, , 2776-10 #### [facility] ([id number]) [address] [place] [address] MCHC (RBC) [Mass/Vol] 31.3 g/dL Low 32-36 [facility] Comment on above: Performed By: #### SANTOSH SALEEM, , 2776-10 #### [facility] ([id number]) [address], [address] [place] [address] MCV (RBC) [Entitic vol] 80 fL Normal 80-100 [facility] Comment on above: Performed By: #### SANTOSH SALEEM, , 2776-10 #### [facility] ([id number]) [address], [address] [place] [address] Platelet mean volume (Bld) [Entitic vol] 7.0 fL Normal 7-12 [facility] Comment on above: Performed By: #### Timmy MILLIGAN BMP, , 2776-10 #### [facility] ([id number]) [address], [address] [place] [address] Platelets (Bld) [#/Vol] 705 10*3/uL High 150-450 [facility] Comment on above: Performed By: #### Timmy MILLIGAN BMP, , 2776-10 #### [facility] ([id number]) [address], [address] [place] [address] RBC COUNT 3.71 X10E12/L Low 3.80-5.20 [facility] Comment on above: Performed By: #### C BC, [facility], 83571-2, 2777-1 #### [facility] ([id number]) [address], [address] [place] [address] WBC (Bld) [#/Vol] 24.4 10*3/uL High 4.0-11.0 [facility] Comment on above: Performed By: #### C BC, [facility], [address]64-2, 277- #### [facility] ([id number]) [address], [address] [place] [address] Calcium.ionized (Bld) [Mass/ Vol]on 10-15-2023 IONIZED CALCIUM 4.8 mg/dL Normal 4.5-5.3 [facility] Comment on above: Performed By: #### 3 8230-9 #### [facility] ([id number]) [address], [address] [place] [address] FL SWALLOW MOTILITY FUNCTION on 10-15-2023 FL [...] Pereira MD on 10/15/2023 2:48 PM Normal [facility] Glucose Glucometer (BldC) [M ass/Vol]on 10-15-2023 Glucose [Mass/Vol] 111 mg/dL High 65-99 [facility] Glucose [Mass/Vol] 93 mg/dL Normal 65-99 [facility] Glucose [Mass/Vol] 99 mg/dL Normal 65-99 [facility] MAGNESIUMon 10-15-2023 Magnesium [Mass/Vol] 1.5 mg/dL Low 1.8-2.6 [facility] Comment on above: Performed By: #### E LEC #### [facility] ([id number]) [address], [address] [place] [address] PHOSPHORUSon 10-15-2023 Phosphate [Mass/Vol] 3.4 mg/dL Normal 2.4-4.9 [facility] Comment on above: Performed By: #### E LEC #### [facility] ([id number]) [address], [address] [place] [address] Vancomycin trough [Mass/Vol] on 10-15-2023 VANCOMYCIN TROUGH 15.5 ug/mL Normal 5.0-20.0 [facility] Comment on above: Performed By: #### E LEC #### [facility] ([id number]) [address], [address] [place] [address] ELECTROLYTESon 10-14-2023 Anion gap [Moles/Vol] 7 mmol/L Normal 5-15 [facility] Comment on above: Performed By: #### E LEC #### [facility] ([id number]) [address], [address] [place] [address] Chloride [Moles/Vol] 106 mmol/L Normal 98-109 [facility] Comment on above: Performed By: #### E LEC #### [facility] ([id number]) [address], [address] [place] [address] CO2 [Moles/Vol] 22 mmol/L Normal 22-32 [facility] Comment on above: Performed By: #### E LEC #### [facility] ([id number]) [address], [address] [place] [address] Potassium [Moles/Vol] 5.8 mmol/L High 3.5-5.0 [facility] Comment on above: Performed By: #### E LEC #### [facility] ([id number]) [address], [address] [place] [address] Sodium [Moles/Vol] 135 mmol/L Normal 134-146 [facility] Comment on above: Performed By: #### E LEC #### [facility] ([id number]) [address], [address] [place] [address] Glucose Glucometer (BldC) [M ass/Vol]on 10-14-2023 Glucose [Mass/Vol] 84 mg/dL Normal 65-99 [facility] Glucose [Mass/Vol] 105 mg/dL High 65-99 [facility] Glucose [Mass/Vol] 85 mg/dL Normal 65-99 [facility] BLOOD CULTUREon 10-13-2023 Bacteria identified Aer cx Nom (Bld) SPECIMEN NOTES SUBOPTIMAL VOLUME OF BLOOD COLLECTED, RESULTS MAY BE AFFECTED. CULTURE RESULTS NO GROWTH 5 DAYS Normal [facility] Comment on above: Performed By: #### 1 7928-3 #### [facility] ([id number]) [address], [address] [place] [address] BLOOD CULTUREon 10-05-2023 Bacteria identified Aer cx Nom (Bld) CULTURE RESULTS STAPHYLOCOCCUS AUREUS METHICILLIN RESISTANT Staphylcoccus aureus detected by PCR. mecA/C and MREJ gene detected by PCR (MRSA). Organism: STAPHYLOCOCCUS AUREUS Antibiotic Interpretation NATALIA Status CEFAZOLIN R F CLINDAMYCIN R >=4 F OXACILLIN R >=4 F TRIMETH/SULFAMETHOXAZOLE S <=.5/9.5 F VANCOMYCIN S 1 F DAPTOMYCIN S 0.25 F DOXYCYCLINE S [address] [facility] Comment on above: Performed By: #### 1 7928-3 #### [facility] ([id number]) [address], [address] [place] [address] Calcium [Mass/volume] in Ser um or PlasmaOrdered By: Jesus Alberto Aquino on 08-20-2023 Calcium [Mass/Vol] 7.5 mg/dL 8.6-10.3 [facility] Carbon dioxide, total [Moles /volume] in Serum or PlasmaOrdered By: Jesus Alberto Aquino on 08-20-2023 CO2 [Moles/Vol] 25.5 mmol/L 21.0-31.0 [facility] Chloride [Moles/volume] in S kaveh or PlasmaOrdered By: Jesus Alberto Aquino on 08-20-2023 Chloride [Moles/Vol] 109 mmol/L 98-107 [facility] Creatinine [Mass/volume] in Serum or PlasmaOrdered By: Jesus Alberto Aquino on 08-20-2023 Creatinine [Mass/Vol] 1.08 mg/dL 0.60-1.20 [facility] Comment on above: Delta: 1.60 on 08/19 Glucose [Mass/volume] in Ser um or PlasmaOrdered By: Jesus Alberto Aquino on 08-20-2023 Glucose [Mass/Vol] 57 mg/dL 70-100 [facility] Comment on above: ADA recommended refe rence rangeRandom Glucose Reference Range is dependent on time and content of last meal. Glucose of more than 200 mg/dL in a nonstressed, ambulatory subject supports the diagnosis of Diabetes Mellitus. No Panel InformationOrdered By: Jesus Alberto Aquino on 08-20-2023 Estimated GFR (CKD-EPI) 52.905 mL/Min [facility] Creatinine Clearance (Chem 41.58 [facility] Potassium [Moles/volume] in Serum or PlasmaOrdered By: Jesus Alberto Aquino on 08-20-2023 Potassium [Moles/Vol] 4.2 mmol/L 3.5-5.1 [facility] Serum or plasma anion gap de terminationOrdered By: Jesus Alberto Aquino on 08-20-2023 Anion gap [Moles/Vol] 12.7 mmol/L 6.0-15.0 [facility] Sodium [Moles/volume] in Ser um or PlasmaOrdered By: Jesus Alberto Aquino on 08-20-2023 Sodium [Moles/Vol] 143 mmol/L 136-145 [facility] Urea nitrogen [Mass/volume] in Serum or PlasmaOrdered By: Jesus Alberto Aquino on 08-20-2023 Urea nitrogen [Mass/Vol] 19 mg/dL 7 [facility] Erythrocyte distribution wid th Auto (RBC) [Ratio]Ordered By: Jesus Alberto Aquino on 08-19-2023 Erythrocyte distribution width (RBC) [Ratio] 17.2 % 11.9-15.3 [facility] Hematocrit Auto (Bld) [Volum e fraction]Ordered By: Jesus Alberto Aquino on 08-19-2023 Hematocrit (Bld) [Volume fraction] 31.8 % 34.0-46.4 [facility] Hemoglobin [Mass/volume] in BloodOrdered By: Jesus Alberto Aquino on 08-19-2023 Hemoglobin (Bld) [Mass/Vol] 10.3 g/dL 11.8-15.4 [facility] Leukocytes [#/volume] correc juma for nucleated erythrocytes in Blood by Automated counOrdered By: Jesus Alberto Aquino on 08-19-2023 WBC corrected for nucl RBC Auto (Bld) [#/Vol] 15.6 10*3/uL 3.8-11.6 [facility] MCH Auto (RBC) [Entitic mass ]Ordered By: Jesus Alberto Aquino on 08-19-2023 MCH (RBC) [Entitic mass] 27.7 pg 24.7-34.3 [facility] MCHC Auto (RBC) [Mass/Vol]Or dered By: Jesus Alberto Aquino on 08-19-2023 MCHC (RBC) [Mass/Vol] 32.4 g/dL 32.0-35.0 [facility] MCV Auto (RBC) [Entitic vol] Ordered By: Jesus Alberto Aquino on 08-19-2023 MCV (RBC) [Entitic vol] 85.4 fL 80-100 [facility] Platelet mean volume Auto (B ld) [Entitic vol]Ordered By: Jesus Alberto Aquino on 08-19-2023 Platelet mean volume (Bld) [Entitic vol] 8.9 fL 6.3-10.7 [facility] Platelets Auto (Bld) [#/Vol] Ordered By: Jesus Alberto Aquino on 08-19-2023 Platelets (Bld) [#/Vol] 201 10*3/uL 150-450 [facility] RBC Auto (Bld) [#/Vol]Ordere d By: Jesus Alberto Aquino on 08-19-2023 RBC (Bld) [#/Vol] 3.72 10*6/uL 3.60-5.00 [facility] Basophils Auto (Bld) [#/Vol] Ordered By: Jesus Alberto Aquino on 08-18-2023 Basophils (Bld) [#/Vol] 0.1 10*3/uL 0.0-0.2 [facility] Basophils/100 WBC Auto (Bld) Ordered By: Jesus Alberto Aquino on 08-18-2023 Basophils/100 WBC (Bld) 0.3 % . [facility] Eosinophils Auto (Bld) [#/Vo l]Ordered By: Jesus Alberto Aquino on 08-18-2023 Eosinophils (Bld) [#/Vol] 0.0 10*3/uL 0.0-0.45 [facility] Eosinophils/100 WBC Auto (Bl d)Ordered By: Jesus Alberto Aquino on 08-18-2023 Eosinophils/100 WBC (Bld) 0.1 % . [facility] Lymphocytes Auto (Bld) [#/Vo l]Ordered By: Jesus Alberto Aquino on 08-18-2023 Lymphocytes (Bld) [#/Vol] 2.8 10*3/uL 1.00-4.8 [facility] Lymphocytes/100 WBC Auto (Bl d)Ordered By: Jesus Alberto Aquino on 08-18-2023 Lymphocytes/100 WBC (Bld) 10.9 % . [facility] Monocytes Auto (Bld) [#/Vol] Ordered By: Jesus Alberto Aquino on 08-18-2023 Monocytes (Bld) [#/Vol] 1.1 10*3/uL 0.0-0.8 [facility] Monocytes/100 WBC Auto (Bld) Ordered By: Jesus Alberto Aquino on 08-18-2023 Monocytes/100 WBC (Bld) 4.4 % . [facility] Neutrophils Auto (Bld) [#/Vo l]Ordered By: Jesus Alberto Aquino on 08-18-2023 Neutrophils (Bld) [#/Vol] 21.6 10*3/uL 1.8-7.7 [facility] Neutrophils/100 WBC Auto (Bl d)Ordered By: Jesus Alberto Aquino on 08-18-2023 Neutrophils/100 WBC (Bld) 84.3 % . [facility] Nucleated erythrocytes [Pres ence] in Blood by Automated countOrdered By: Jesus Alberto Aquino on 08-18-2023 Nucleated RBC Auto Ql (Bld) 0.2 /100{WBC} 0-0.5 [facility] WBC Auto (Bld) [#/Vol]Ordere d By: Jesus Alberto Aquino on 08-18-2023 WBC (Bld) [#/Vol] 25.6 10*3/uL 3.8-11.6 [facility] Activated partial thrombopla stin time (aPTT) in platelet poor plasma by coagulation aOrdered By: Maury Morrissey on 08-17-2023 aPTT Coag (PPP) [Time] 26.3 s 25.1-36.5 [facility] Comment on above: A hematocrit value g reater than 55% may lead to inaccurate results in coagulation testing. Patients having hematocrit values >55% require a special collection tube for coagulation studies. Please contact the laboratory at [phone] for redraw instructions. Alanine aminotransferase [En zymatic activity/volume] in Serum or PlasmaOrdered By: Maury Morrissey on 08-17-2023 ALT [Catalytic activity/Vol] 24 U/L 7-52 [facility] Albumin [Mass/volume] in Ser um or Plasma by Bromocresol green (BCG) dye binding methoOrdered By: Maury Morrissey on 08-17-2023 Albumin BCG dye [Mass/Vol] 3.4 g/dL 3.5-5.7 [facility] Alkaline phosphatase [Enzyma tic activity/volume] in Serum or PlasmaOrdered By: Maury Morrissey on 08-17-2023 ALP [Catalytic activity/Vol] 64 U/L 34-104 [facility] Anisocytosis LM Ql (Bld)Orde red By: Maury Morrissey on 08-17-2023 Anisocytosis Ql (Bld) Moderate [facility] Aspartate aminotransferase [ Enzymatic activity/volume] in Serum or PlasmaOrdered By: Maury Morrissey on 08-17-2023 AST [Catalytic activity/Vol] 23 U/L 13-39 [facility] Automated erythrocytes count in urine sediment (number/area)Ordered By: Maury Morrissey on 08-17-2023 RBC Auto (Urine sed) [#/Area] 0-1 [HPF] 0-4 [facility] Automated leukocytes count i n urine sediment (number/area)Ordered By: Maury Morrissey on 08-17-2023 WBC Auto (Urine sed) [#/Area] 1-2 [HPF] 0-4 [facility] Basophils Auto (Bld) [#/Vol] Ordered By: Maury Morrissey on 08-17-2023 Basophils (Bld) [#/Vol] 0.0 10*3/uL 0.0-0.2 [facility] Basophils/100 WBC Auto (Bld) Ordered By: Maury Morrissey on 08-17-2023 Basophils/100 WBC (Bld) 0.2 % . [facility] Bilirubin Test strip Ql (U)O rdered By: Maury Morrissey on 08-17-2023 Bilirubin Ql (U) Negative Negative [facility] Bilirubin.direct [Mass/volum e] in Serum or PlasmaOrdered By: Maury Morrissey on 08-17-2023 Bilirubin.direct [Mass/Vol] 0.20 mg/dL 0.03-0.18 [facility] Bilirubin.total [Mass/volume ] in Serum or PlasmaOrdered By: Maury Morrissey on 08-17-2023 Bilirubin [Mass/Vol] 0.6 mg/dL 0.3-1.0 [facility] Calcium [Mass/volume] in Ser um or PlasmaOrdered By: Maury Morrissey on 08-17-2023 Calcium [Mass/Vol] 9.1 mg/dL 8.6-10.3 [facility] Carbon dioxide, total [Moles /volume] in Serum or PlasmaOrdered By: Maury Morrissey on 08-17-2023 CO2 [Moles/Vol] 27.3 mmol/L 21.0-31.0 [facility] Chloride [Moles/volume] in S kaveh or PlasmaOrdered By: Maury Morrissey on 08-17-2023 Chloride [Moles/Vol] 97 mmol/L 98-107 [facility] Color Auto (U)Ordered By: Arturo red Yuni on 08-17-2023 Color (U) Yellow Yellow [facility] Creatine kinase [Enzymatic a ctivity/volume] in Serum or PlasmaOrdered By: Maury Morrissey on 08-17-2023 CK [Catalytic activity/Vol] 87 U/L 30-223 [facility] Creatinine [Mass/volume] in Serum or PlasmaOrdered By: Maury Morrissey on 08-17-2023 Creatinine [Mass/Vol] 4.44 mg/dL 0.60-1.20 [facility] Eosinophils Auto (Bld) [#/Vo l]Ordered By: Maury Morrissey on 08-17-2023 Eosinophils (Bld) [#/Vol] 0.0 10*3/uL 0.0-0.45 [facility] Eosinophils/100 WBC Auto (Bl d)Ordered By: Muary Morrissey on 08-17-2023 Eosinophils/100 WBC (Bld) 0.0 % . [facility] Erythrocyte distribution wid th Auto (RBC) [Ratio]Ordered By: Maury Morrissey on 08-17-2023 Erythrocyte distribution width (RBC) [Ratio] 17.6 % 11.9-15.3 [facility] Globulin Calc (S) [Mass/Vol] Ordered By: Maury Morrissey on 08-17-2023 Globulin (S) [Mass/Vol] 3.7 g/dL [facility] Glucose [Mass/volume] in Ser um or PlasmaOrdered By: Maury Morrissey on 08-17-2023 Glucose [Mass/Vol] 79 mg/dL 70-100 [facility] Comment on above: ADA recommended refe rence rangeRandom Glucose Reference Range is dependent on time and content of last meal. Glucose of more than 200 mg/dL in a nonstressed, ambulatory subject supports the diagnosis of Diabetes Mellitus. Hematocrit Auto (Bld) [Volum e fraction]Ordered By: Maury Morrissey on 08-17-2023 Hematocrit (Bld) [Volume fraction] 37.9 % 34.0-46.4 [facility] Hemoglobin [Mass/volume] in BloodOrdered By: Maury Morrissey on 08-17-2023 Hemoglobin (Bld) [Mass/Vol] 12.0 g/dL 11.8-15.4 [facility] Hypochromia LM Ql (Bld)Order ed By: Maury Morrissey on 08-17-2023 Hypochromia Ql (Bld) Slight [facility] INR in Platelet poor plasma by Coagulation assayOrdered By: Maury Morrissey on 08-17-2023 INR Coag (PPP) [Relative time] 1.1 {INR} [facility] Comment on above: INR Therapeutic Rang e [...] on 08-17-2023 Ketones (U) [Mass/Vol] Negative Negative [facility] - UrinalysisOrder ed By: Maury Morrissey on 08-17-2023 Hyaline casts LM Ql (Urine sed) 0-8 [LPF] 0-8 [facility] Lactate [Moles/volume] in Se rum or PlasmaOrdered By: Maury Morrissey on 08-17-2023 Lactate [Moles/Vol] 1.1 mmol/L 0.5-2.2 [facility] Leukocytes [#/volume] correc juma for nucleated erythrocytes in Blood by Automated counOrdered By: Maury Morrissey on 08-17-2023 WBC corrected for nucl RBC Auto (Bld) [#/Vol] 29.3 10*3/uL 3.8-11.6 [facility] Lymphocytes Auto (Bld) [#/Vo l]Ordered By: Maury Morrissey on 08-17-2023 Lymphocytes (Bld) [#/Vol] 2.3 10*3/uL 1.00-4.8 [facility] Lymphocytes/100 WBC Auto (Bl d)Ordered By: Maury Morrissey on 08-17-2023 Lymphocytes/100 WBC (Bld) 7.8 % . [facility] MCH Auto (RBC) [Entitic mass ]Ordered By: Maury Morrissey on 08-17-2023 MCH (RBC) [Entitic mass] 27.3 pg 24.7-34.3 [facility] MCHC Auto (RBC) [Mass/Vol]Or dered By: Maury Morrissey on 08-17-2023 MCHC (RBC) [Mass/Vol] 31.6 g/dL 32.0-35.0 [facility] MCV Auto (RBC) [Entitic vol] Ordered By: Maury Morrissey on 08-17-2023 MCV (RBC) [Entitic vol] 86.4 fL 80-100 [facility] Monocyte distribution width [Entitic volume] in Blood by AutomatedOrdered By: Maury Morrisesy on 08-17-2023 Monocyte distribution width Auto (Bld) [Entitic vol] 23.25 % 0.00-20.00 [facility] Comment on above: For adults in ED, MD W > 20.0 may be associated with a higher risk of sepsis during the first 12 hrs of hospital admission Monocytes Auto (Bld) [#/Vol] Ordered By: Maury Morrissey on 08-17-2023 Monocytes (Bld) [#/Vol] 1.6 10*3/uL 0.0-0.8 [facility] Monocytes/100 WBC Auto (Bld) Ordered By: Maury Morrissey on 08-17-2023 Monocytes/100 WBC (Bld) 5.5 % . [facility] Natriuretic peptide B [Mass/ Vol]Ordered By: Maury Morrissey on 08-17-2023 Natriuretic peptide B (Bld) [Mass/Vol] 68.0 pg/mL 5-100 [facility] Neutrophils Auto (Bld) [#/Vo l]Ordered By: Maury Morrissey on 08-17-2023 Neutrophils (Bld) [#/Vol] 25.4 10*3/uL 1.8-7.7 [facility] Neutrophils/100 WBC Auto (Bl d)Ordered By: Maury Morrissey on 08-17-2023 Neutrophils/100 WBC (Bld) 86.5 % . [facility] Nitrite Test strip Ql (U)Ord ered By: Maury Morrissey on 08-17-2023 Nitrite Ql (U) Negative Negative [facility] No Panel InformationOrdered By: Maury Morrissey on 08-17-2023 Estimated GFR (CKD-EPI) 9.700 mL/Min [facility] Creatinine Clearance (Chem 10.00 [facility] Nucleated erythrocytes [Pres ence] in Blood by Automated countOrdered By: Maury Morrissey on 08-17-2023 Nucleated RBC Auto Ql (Bld) 0.1 /100{WBC} 0-0.5 [facility] Platelet adequacy [Presence] in Blood by Light microscopyOrdered By: Maury Morrissey on 08-17-2023 Platelets LM Ql (Bld) Normal Normal [facility] Platelet mean volume Auto (B ld) [Entitic vol]Ordered By: Maury Morrissey on 08-17-2023 Platelet mean volume (Bld) [Entitic vol] 8.8 fL 6.3-10.7 [facility] Platelet morphology finding [Identifier] in BloodOrdered By: Maury Morrissey on 08-17-2023 Platelet morphology finding Nom (Bld) Normal Normal [facility] Platelets Auto (Bld) [#/Vol] Ordered By: Maury Morrissey on 08-17-2023 Platelets (Bld) [#/Vol] 298 10*3/uL 150-450 [facility] Polychromasia [Presence] in Blood by Light microscopyOrdered By: Maury Morrissey on 08-17-2023 Polychromasia LM Ql (Bld) Slight [facility] Potassium [Moles/volume] in Serum or PlasmaOrdered By: Maury Morrissey on 08-17-2023 Potassium [Moles/Vol] 4.5 mmol/L 3.5-5.1 [facility] Protein Auto test strip (U) [Mass/Vol]Ordered By: Maury Morrissey on 08-17-2023 Protein (U) [Mass/Vol] Negative Negative Fi [facility] Protein [Mass/volume] in Ser um or PlasmaOrdered By: Maury Morrissey on 08-17-2023 Protein [Mass/Vol] 7.1 g/dL 6.4-8.9 [facility] Prothrombin time (PT)Ordered By: Maury Morrissey on 08-17-2023 PT Coag (PPP) [Time] 12.6 s 9.0-12.9 [facility] Comment on above: A hematocrit value g reater than 55% may lead to inaccurate results in coagulation testing. Patients having hematocrit values >55% require a special collection tube for coagulation studies. Please contact the laboratory at [phone] for redraw instructions. RBC Auto (Bld) [#/Vol]Ordere d By: Maury Morrissey on 08-17-2023 RBC (Bld) [#/Vol] 4.39 10*6/uL 3.60-5.00 [facility] RBC morphologyOrdered By: Arturo Morrissey on 08-17-2023 RBC morphology finding Nom (Bld) N/A [facility] Serum or plasma albumin/glob ulin mass ratioOrdered By: Maury Morrissey on 08-17-2023 Albumin/Globulin [Mass ratio] 0.9 {ratio} [facility] Serum or plasma anion gap de terminationOrdered By: Maury Morrissey on 08-17-2023 Anion gap [Moles/Vol] 23.2 mmol/L 6.0-15.0 [facility] Serum or plasma non-glucuron idated bilirubin measurement (mass/volume)Ordered By: Maury Morrissey on 08-17-2023 Bilirubin.indirect [Mass/Vol] 0.4 mg/dL [facility] Sodium [Moles/volume] in Ser um or PlasmaOrdered By: Maury Morrissey on 08-17-2023 Sodium [Moles/Vol] 143 mmol/L 136-145 [facility] Specific gravity Auto test s trip (U) [Rel density]Ordered By: Maury Morrissey on 08-17-2023 Specific gravity (U) [Rel density] 1.008 1.001-1.03 0 [facility] Squamous epithelial cells de tection in urine sediment by light microscopyOrdered By: Maury Morrissey on 08-17-2023 Epithelial cells.squamous LM Ql (Urine sed) None seen [HPF] 0-2 [facility] Troponin I.cardiac [Mass/vol ume] in Serum or Plasma by Detection limit <= 0.01 ng/Ordered By: Maury Morrissey on 08-17-2023 Troponin I.cardiac DL <= 0.01 ng/mL [Mass/Vol] 38.1 pg/mL 0.0-15.0 [facility] Urea nitrogen [Mass/volume] in Serum or PlasmaOrdered By: Maury Morrissey on 08-17-2023 Urea nitrogen [Mass/Vol] 92 mg/dL 7-25 [facility] Urine bacteria detection by automated methodOrdered By: Maury Morrissey on 08-17-2023 Bacteria Auto Ql (U) 1+ None Seen [facility] Urine clarity by refractomet ry automatedOrdered By: Maury Morrissey on 08-17-2023 Clarity Refractometry automated (U) Clear Clear [facility] Urine glucose measurement by automated test strip (mass/volume)Ordered By: Maury Morrissey on 08-17-2023 Glucose Auto test strip (U) [Mass/Vol] Normal mg/dL Normal [facility] Urine hemoglobin detection b y automated test stripOrdered By: Maury Morrissey on 08-17-2023 Hemoglobin Auto test strip Ql (U) Trace Negative [facility] Urine leukocyte esterase det ection by automated test stripOrdered By: Maury Morrissey on 08-17-2023 Leukocyte esterase Auto test strip Ql (U) Negative Negative [facility] Urobilinogen Auto test strip (U) [Mass/Vol]Ordered By: Maury Morrissey on 08-17-2023 Urobilinogen (U) [Mass/Vol] Normal mg/dL Normal [facility] WBC Auto (Bld) [#/Vol]Ordere d By: Maury Morrissey on 08-17-2023 WBC (Bld) [#/Vol] 29.3 10*3/uL 3.8-11.6 [facility] pH Auto test strip (U)Ordere d By: Maury Morrissey on 08-17-2023 pH (U) 5.5 [pH] 5.0-9.0 [facility] Anisocytosis LM Ql (Bld)Orde red By: Bhavesh Cristobal on 07-14-2023 Anisocytosis Ql (Bld) Marked [facility] Basophils Auto (Bld) [#/Vol] Ordered By: Bhavesh Cristobal on 07-14-2023 Basophils (Bld) [#/Vol] 0.1 10*3/uL 0.0-0.2 [facility] Basophils/100 WBC Auto (Bld) Ordered By: Bhavesh Cristobal on 07-14-2023 Basophils/100 WBC (Bld) 0.3 % . [facility] Calcium [Mass/volume] in Ser um or PlasmaOrdered By: Bhavesh Cristobal on 07-14-2023 Calcium [Mass/Vol] 8.0 mg/dL 8.6-10.3 [facility] Carbon dioxide, total [Moles /volume] in Serum or PlasmaOrdered By: Bhavesh Cristobal on 07-14-2023 CO2 [Moles/Vol] 28.1 mmol/L 21.0-31.0 [facility] Chloride [Moles/volume] in S kaveh or PlasmaOrdered By: Bhavesh Cristobal on 07-14-2023 Chloride [Moles/Vol] 110 mmol/L 98-107 [facility] Creatinine [Mass/volume] in Serum or PlasmaOrdered By: Bhavesh Cristobal on 07-14-2023 Creatinine [Mass/Vol] 1.10 mg/dL 0.60-1.20 [facility] Eosinophils Auto (Bld) [#/Vo l]Ordered By: Bhavesh Cristobal on 07-14-2023 Eosinophils (Bld) [#/Vol] 0.1 10*3/uL 0.0-0.45 [facility] Eosinophils/100 WBC Auto (Bl d)Ordered By: Bhavesh Cristobal on 07-14-2023 Eosinophils/100 WBC (Bld) 0.4 % . [facility] Erythrocyte distribution wid th Auto (RBC) [Ratio]Ordered By: Bhavesh Cristobal on 07-14-2023 Erythrocyte distribution width (RBC) [Ratio] 22.8 % 11.9-15.3 [facility] Glucose Glucometer (BldC) [M ass/Vol]Ordered By: Jolanta Mckenzie on 07-14-2023 Glucose [Mass/Vol] 80 mg/dL [facility] Comment on above: Random Glucose Refer ence Range is dependent on time and content of last meal. Glucose of more than 200 mg/dL in a nonstressed, ambulatory subject supports the diagnosis of Diabetes Mellitus. Glucose [Mass/volume] in Ser um or PlasmaOrdered By: Bhavesh Cristobal on 07-14-2023 Glucose [Mass/Vol] 84 mg/dL 70-100 [facility] Comment on above: ADA recommended refe rence rangeRandom Glucose Reference Range is dependent on time and content of last meal. Glucose of more than 200 mg/dL in a nonstressed, ambulatory subject supports the diagnosis of Diabetes Mellitus. Hematocrit Auto (Bld) [Volum e fraction]Ordered By: Bhavesh Cristobal on 07-14-2023 Hematocrit (Bld) [Volume fraction] 33.6 % 34.0-46.4 [facility] Hemoglobin [Mass/volume] in BloodOrdered By: Bhavesh Cristobal on 07-14-2023 Hemoglobin (Bld) [Mass/Vol] 10.5 g/dL 11.8-15.4 [facility] Hypochromia LM Ql (Bld)Order ed By: Bhavesh Cristobal on 07-14-2023 Hypochromia Ql (Bld) Slight [facility] Leukocytes [#/volume] correc juma for nucleated erythrocytes in Blood by Automated counOrdered By: Bhavesh Cristobal on 07-14-2023 WBC corrected for nucl RBC Auto (Bld) [#/Vol] 19.3 10*3/uL 3.8-11.6 [facility] Lymphocytes Auto (Bld) [#/Vo l]Ordered By: Bhavesh Cristobal on 07-14-2023 Lymphocytes (Bld) [#/Vol] 4.3 10*3/uL 1.00-4.8 [facility] Lymphocytes/100 WBC Auto (Bl d)Ordered By: Bhavesh Cristobal on 07-14-2023 Lymphocytes/100 WBC (Bld) 22.1 % . [facility] MCH Auto (RBC) [Entitic mass ]Ordered By: Bhavesh Cristobal on 07-14-2023 MCH (RBC) [Entitic mass] 26.2 pg 24.7-34.3 [facility] MCHC Auto (RBC) [Mass/Vol]Or dered By: Bhavesh Cristobal on 07-14-2023 MCHC (RBC) [Mass/Vol] 31.2 g/dL 32.0-35.0 [facility] MCV Auto (RBC) [Entitic vol] Ordered By: Bhavesh Cristobal on 07-14-2023 MCV (RBC) [Entitic vol] 84.0 fL 80-100 [facility] Monocytes Auto (Bld) [#/Vol] Ordered By: Bhavesh Cristobal on 07-14-2023 Monocytes (Bld) [#/Vol] 1.4 10*3/uL 0.0-0.8 [facility] Monocytes/100 WBC Auto (Bld) Ordered By: Bhavesh Cristobal on 07-14-2023 Monocytes/100 WBC (Bld) 7.3 % . [facility] Neutrophils Auto (Bld) [#/Vo l]Ordered By: Bhavesh Cristobal on 07-14-2023 Neutrophils (Bld) [#/Vol] 13.5 10*3/uL 1.8-7.7 [facility] Neutrophils/100 WBC Auto (Bl d)Ordered By: Bhavesh Cristobal on 07-14-2023 Neutrophils/100 WBC (Bld) 69.9 % . [facility] No Panel InformationOrdered By: Bhavesh Cristobal on 07-14-2023 Estimated GFR (CKD-EPI) 51.753 mL/Min [facility] Creatinine Clearance (Chem 42.83 [facility] Nucleated erythrocytes [Pres ence] in Blood by Automated countOrdered By: Bhavesh Cristobal on 07-14-2023 Nucleated RBC Auto Ql (Bld) 0.1 /100{WBC} 0-0.5 [facility] Platelet adequacy [Presence] in Blood by Light microscopyOrdered By: Bhavesh Cristobal on 07-14-2023 Platelets LM Ql (Bld) Normal Normal [facility] Platelet mean volume Auto (B ld) [Entitic vol]Ordered By: Bhavesh Cristobal on 07-14-2023 Platelet mean volume (Bld) [Entitic vol] 7.9 fL 6.3-10.7 [facility] Platelet morphology finding [Identifier] in BloodOrdered By: Bhavesh Cristobal on 07-14-2023 Platelet morphology finding Nom (Bld) Normal Normal [facility] Platelets Auto (Bld) [#/Vol] Ordered By: Bhavesh Cristobal on 07-14-2023 Platelets (Bld) [#/Vol] 238 10*3/uL 150-450 [facility] Polychromasia [Presence] in Blood by Light microscopyOrdered By: Bhavesh Cristobal on 07-14-2023 Polychromasia LM Ql (Bld) Slight [facility] Potassium [Moles/volume] in Serum or PlasmaOrdered By: Bhavesh Cristobal on 07-14-2023 Potassium [Moles/Vol] 4.2 mmol/L 3.5-5.1 [facility] RBC Auto (Bld) [#/Vol]Ordere d By: Bhavesh Cristobal on 07-14-2023 RBC (Bld) [#/Vol] 4.00 10*6/uL 3.60-5.00 [facility] RBC morphologyOrdered By: Wilber Cristobal on 07-14-2023 RBC morphology finding Nom (Bld) N/A [facility] Serum or plasma anion gap de terminationOrdered By: Bhavesh Cristobal on 07-14-2023 Anion gap [Moles/Vol] 9.1 mmol/L 6.0-15.0 [facility] Sodium [Moles/volume] in Ser um or PlasmaOrdered By: Bhavesh Cristobal on 07-14-2023 Sodium [Moles/Vol] 143 mmol/L 136-145 [facility] Urea nitrogen [Mass/volume] in Serum or PlasmaOrdered By: Bhavesh Cristobal on 07-14-2023 Urea nitrogen [Mass/Vol] 24 mg/dL 7-25 [facility] WBC Auto (Bld) [#/Vol]Ordere d By: Bhavesh Cristobal on 07-14-2023 WBC (Bld) [#/Vol] 19.3 10*3/uL 3.8-11.6 [facility] Alanine aminotransferase [En zymatic activity/volume] in Serum or PlasmaOrdered By: Jolanta Mckenzie on 07-12-2023 ALT [Catalytic activity/Vol] 16 U/L 7-52 [facility] Albumin [Mass/volume] in Ser um or Plasma by Bromocresol green (BCG) dye binding methoOrdered By: Jolanta Mckenzie on 07-12-2023 Albumin BCG dye [Mass/Vol] 3.0 g/dL 3.5-5.7 [facility] Alkaline phosphatase [Enzyma tic activity/volume] in Serum or PlasmaOrdered By: Jolanta Mckenzie on 07-12-2023 ALP [Catalytic activity/Vol] 45 U/L 34-104 [facility] Aspartate aminotransferase [ Enzymatic activity/volume] in Serum or PlasmaOrdered By: Jolanta Mckenzie on 07-12-2023 AST [Catalytic activity/Vol] 14 U/L 13-39 [facility] Bilirubin.total [Mass/volume ] in Serum or PlasmaOrdered By: Jolanta Mckenzie on 07-12-2023 Bilirubin [Mass/Vol] 0.3 mg/dL 0.3-1.0 [facility] Globulin Calc (S) [Mass/Vol] Ordered By: Jolanta Mckenzie on 07-12-2023 Globulin (S) [Mass/Vol] 2.7 g/dL [facility] Protein [Mass/volume] in Ser um or PlasmaOrdered By: Jolanta Mckenzie on 07-12-2023 Protein [Mass/Vol] 5.7 g/dL 6.4-8.9 [facility] Serum or plasma albumin/glob ulin mass ratioOrdered By: Jolanta Mckenzie on 07-12-2023 Albumin/Globulin [Mass ratio] 1.1 {ratio} [facility] Acanthocytes [Presence] in B lood by Light microscopyOrdered By: Marshall Dominguez on 07-10-2023 Acanthocytes LM Ql (Bld) Slight [facility] Aerobic cultureOrdered By: Viki Mckenzie on 07-10-2023 Bacteria identified Aer cx Nom (Unsp spec) [facility] Anisocytosis LM Ql (Bld)Orde red By: Marshall Dominguez on 07-10-2023 Anisocytosis Ql (Bld) Moderate [facility] Automated erythrocytes count in urine sediment (number/area)Ordered By: Marshall Dominguez on 07-10-2023 RBC Auto (Urine sed) [#/Area] 3-4 [HPF] 0-4 [facility] Automated leukocytes count i n urine sediment (number/area)Ordered By: Marshall Dominguez on 07-10-2023 WBC Auto (Urine sed) [#/Area] Innumerable [HPF] 0-4 [facility] Bacterial blood cultureOrder ed By: Marshall Dominguez on 07-10-2023 Bacteria identified Cx Nom (Bld) NO GROWTH 5 DAYS [facility] Basophils Auto (Bld) [#/Vol] Ordered By: Marshall Dominguez on 07-10-2023 Basophils (Bld) [#/Vol] 0.0 10*3/uL 0.0-0.2 [facility] Basophils/100 WBC Auto (Bld) Ordered By: Marshall Dominguez on 07-10-2023 Basophils/100 WBC (Bld) 0.2 % . [facility] Bilirubin Test strip Ql (U)O rdered By: Marshall Dominguez on 07-10-2023 Bilirubin Ql (U) Negative Negative [facility] Calcium [Mass/volume] in Ser um or PlasmaOrdered By: Marshall Dominguez on 07-10-2023 Calcium [Mass/Vol] 8.9 mg/dL 8.6-10.3 [facility] Carbon dioxide, total [Moles /volume] in Serum or PlasmaOrdered By: Marshall Dominguez on 07-10-2023 CO2 [Moles/Vol] 32.4 mmol/L 21.0-31.0 [facility] Chloride [Moles/volume] in S kaveh or PlasmaOrdered By: Marshall Dominguez on 07-10-2023 Chloride [Moles/Vol] 105 mmol/L 98-107 [facility] Color Auto (U)Ordered By: Ruslan Dominguez on 07-10-2023 Color (U) Yellow Yellow [facility] Creatinine [Mass/volume] in Serum or PlasmaOrdered By: Marshall Dominguez on 07-10-2023 Creatinine [Mass/Vol] 1.56 mg/dL 0.60-1.20 [facility] Eosinophils Auto (Bld) [#/Vo l]Ordered By: Marshall Dominguez on 07-10-2023 Eosinophils (Bld) [#/Vol] 0.1 10*3/uL 0.0-0.45 [facility] Eosinophils/100 WBC Auto (Bl d)Ordered By: Marshall Dominguez on 07-10-2023 Eosinophils/100 WBC (Bld) 0.4 % . [facility] Erythrocyte distribution wid th Auto (RBC) [Ratio]Ordered By: Marshall Dominguez on 07-10-2023 Erythrocyte distribution width (RBC) [Ratio] 22.2 % 11.9-15.3 [facility] Glucose [Mass/volume] in Ser um or PlasmaOrdered By: Marshall Dominguez on 07-10-2023 Glucose [Mass/Vol] 83 mg/dL 70-100 [facility] Comment on above: ADA recommended refe rence rangeRandom Glucose Reference Range is dependent on time and content of last meal. Glucose of more than 200 mg/dL in a nonstressed, ambulatory subject supports the diagnosis of Diabetes Mellitus. Gram stain for investigation of transfusion reactionOrdered By: Jolanta Mckenzie on 07-10-2023 Microscopic observation Gram stain Nom (Unsp spec) [facility] Hematocrit Auto (Bld) [Volum e fraction]Ordered By: Marshall Dominguez on 07-10-2023 Hematocrit (Bld) [Volume fraction] 34.4 % 34.0-46.4 [facility] Hemoglobin [Mass/volume] in BloodOrdered By: Marshall Dominguez on 07-10-2023 Hemoglobin (Bld) [Mass/Vol] 11.0 g/dL 11.8-15.4 [facility] Hypochromia LM Ql (Bld)Order ed By: Marshall Dominguez on 07-10-2023 Hypochromia Ql (Bld) Slight [facility] INR in Platelet poor plasma by Coagulation assayOrdered By: Marshall Dominguez on 07-10-2023 INR Coag (PPP) [Relative time] 0.9 {INR} [facility] Comment on above: INR Therapeutic Rang e [...] 07-10-2023 Ketones (U) [Mass/Vol] Negative Negative [facility] - UrinalysisOrder ed By: Marshall Dominguez on 07-10-2023 Hyaline casts LM Ql (Urine sed) 0-8 [LPF] 0-8 [facility] Lactate [Moles/volume] in Se rum or PlasmaOrdered By: Marshall Dominguez on 07-10-2023 Lactate [Moles/Vol] 1.6 mmol/L 0.5-2.2 [facility] Leukocytes [#/volume] correc juma for nucleated erythrocytes in Blood by Automated counOrdered By: Marshall Dominguez on 07-10-2023 WBC corrected for nucl RBC Auto (Bld) [#/Vol] 21.3 10*3/uL 3.8-11.6 [facility] Lymphocytes Auto (Bld) [#/Vo l]Ordered By: Marshall Dominguez on 07-10-2023 Lymphocytes (Bld) [#/Vol] 6.7 10*3/uL 1.00-4.8 [facility] Lymphocytes/100 WBC Auto (Bl d)Ordered By: Marshall Dominguez on 07-10-2023 Lymphocytes/100 WBC (Bld) 31.5 % . [facility] MCH Auto (RBC) [Entitic mass ]Ordered By: Marshall Dominguez on 07-10-2023 MCH (RBC) [Entitic mass] 26.5 pg 24.7-34.3 [facility] MCHC Auto (RBC) [Mass/Vol]Or dered By: Marshall Dominguez on 07-10-2023 MCHC (RBC) [Mass/Vol] 32.0 g/dL 32.0-35.0 [facility] MCV Auto (RBC) [Entitic vol] Ordered By: Marshall Dominguez on 07-10-2023 MCV (RBC) [Entitic vol] 82.7 fL 80-100 [facility] Microcytes LM Ql (Bld)Ordere d By: Marshall Dominguez on 07-10-2023 Microcytes Ql (Bld) Moderate [facility] Monocytes Auto (Bld) [#/Vol] Ordered By: Marshall Dominguez on 07-10-2023 Monocytes (Bld) [#/Vol] 1.4 10*3/uL 0.0-0.8 [facility] Monocytes/100 WBC Auto (Bld) Ordered By: Marshall Dominguez on 07-10-2023 Monocytes/100 WBC (Bld) 6.5 % . [facility] Natriuretic peptide B [Mass/ Vol]Ordered By: Marshall Dominguez on 07-10-2023 Natriuretic peptide B (Bld) [Mass/Vol] 54.0 pg/mL 5-100 [facility] Neutrophils Auto (Bld) [#/Vo l]Ordered By: Marshall Dominguez on 07-10-2023 Neutrophils (Bld) [#/Vol] 13.1 10*3/uL 1.8-7.7 [facility] Neutrophils/100 WBC Auto (Bl d)Ordered By: Marshall Dominguez on 07-10-2023 Neutrophils/100 WBC (Bld) 61.4 % . [facility] Nitrite Test strip Ql (U)Ord ered By: Marshall Dominguez on 07-10-2023 Nitrite Ql (U) Positive Negative [facility] No Panel InformationOrdered By: Marshall Dominguez on 07-10-2023 Estimated GFR (CKD-EPI) 34.030 mL/Min [facility] Creatinine Clearance (Chem N/A [facility] Nucleated erythrocytes [Pres ence] in Blood by Automated countOrdered By: Marshall Dominguez on 07-10-2023 Nucleated RBC Auto Ql (Bld) 0.1 /100{WBC} 0-0.5 [facility] Ovalocyte detectionOrdered B y: Marshall Dominguez on 07-10-2023 Ovalocytes LM Ql (Bld) Slight [facility] Platelet adequacy [Presence] in Blood by Light microscopyOrdered By: Marshall Dominguez on 07-10-2023 Platelets LM Ql (Bld) Normal Normal [facility] Platelet mean volume Auto (B ld) [Entitic vol]Ordered By: Marshall Dominguez on 07-10-2023 Platelet mean volume (Bld) [Entitic vol] 8.0 fL 6.3-10.7 [facility] Platelet morphology finding [Identifier] in BloodOrdered By: Marshall Dominguez on 07-10-2023 Platelet morphology finding Nom (Bld) N/A [facility] Platelets Auto (Bld) [#/Vol] Ordered By: Marshall Dominguez on 07-10-2023 Platelets (Bld) [#/Vol] 250 10*3/uL 150-450 [facility] Poikilocytosis [Presence] in Blood by Light microscopyOrdered By: Marshall Dominguez on 07-10-2023 Poikilocytosis LM Ql (Bld) Slight [facility] Polychromasia [Presence] in Blood by Light microscopyOrdered By: Marshall Dominguez on 07-10-2023 Polychromasia LM Ql (Bld) Slight [facility] Potassium [Moles/volume] in Serum or PlasmaOrdered By: Marshall Dominguez on 07-10-2023 Potassium [Moles/Vol] 3.9 mmol/L 3.5-5.1 [facility] Protein Auto test strip (U) [Mass/Vol]Ordered By: Marshall Dominguez on 07-10-2023 Protein (U) [Mass/Vol] 30 mg/dL Negative [facility] Prothrombin time (PT)Ordered By: Marshall Dominguez on 07-10-2023 PT Coag (PPP) [Time] 10.6 s 9.0-12.9 [facility] Comment on above: A hematocrit value g reater than 55% may lead to inaccurate results in coagulation testing. Patients having hematocrit values >55% require a special collection tube for coagulation studies. Please contact the laboratory at [phone] for redraw instructions. RBC Auto (Bld) [#/Vol]Ordere d By: Marshall Dominguez on 07-10-2023 RBC (Bld) [#/Vol] 4.17 10*6/uL 3.60-5.00 [facility] RBC morphologyOrdered By: Ruslan Dominguez on 07-10-2023 RBC morphology finding Nom (Bld) N/A [facility] Serum or plasma anion gap de terminationOrdered By: Marshall Dominguez on 07-10-2023 Anion gap [Moles/Vol] 9.5 mmol/L 6.0-15.0 [facility] Sodium [Moles/volume] in Ser um or PlasmaOrdered By: Marshall Dominguez on 07-10-2023 Sodium [Moles/Vol] 143 mmol/L 136-145 [facility] Specific gravity Auto test s trip (U) [Rel density]Ordered By: Marshall Dominguez on 07-10-2023 Specific gravity (U) [Rel density] 1.022 1.001-1.03 0 [facility] Squamous epithelial cells de tection in urine sediment by light microscopyOrdered By: Marshall Dominguez on 07-10-2023 Epithelial cells.squamous LM Ql (Urine sed) 1-2 [HPF] 0-2 [facility] Teardrop cell detectionOrder ed By: Marshall Dominguez on 07-10-2023 Dacrocytes LM Ql (Bld) Slight [facility]aFormer[facility] Troponin I.cardiac [Mass/vol ume] in Serum or Plasma by Detection limit <= 0.01 ng/Ordered By: Marshall Dominguez on 07-10-2023 Troponin I.cardiac DL <= 0.01 ng/mL [Mass/Vol] 11.7 pg/mL 0.0-15.0 [facility] Urea nitrogen [Mass/volume] in Serum or PlasmaOrdered By: Marshall Dominguez on 07-10-2023 Urea nitrogen [Mass/Vol] 36 mg/dL 7-25 [facility] Urine bacteria detection by automated methodOrdered By: Marshall Dominguez on 07-10-2023 Bacteria Auto Ql (U) 2+ None Seen [facility] Urine clarity by refractomet ry automatedOrdered By: Marshall Dominguez on 07-10-2023 Clarity Refractometry automated (U) Cloudy Clear [facility] Urine culture routineOrdered By: Marshall Dominguez on 07-10-2023 Bacteria identified Cx Nom (U) Proteus mirabilis [facility] Urine glucose measurement by automated test strip (mass/volume)Ordered By: Marshall Dominguez on 07-10-2023 Glucose Auto test strip (U) [Mass/Vol] Normal mg/dL Normal [facility] Urine hemoglobin detection b y automated test stripOrdered By: Marshall Dominguez on 07-10-2023 Hemoglobin Auto test strip Ql (U) Negative Negative [facility] Urine leukocyte esterase det ection by automated test stripOrdered By: Marshall Dominguez on 07-10-2023 Leukocyte esterase Auto test strip Ql (U) 4+ Negative [facility] Urobilinogen Auto test strip (U) [Mass/Vol]Ordered By: Marshall Dominguez on 07-10-2023 Urobilinogen (U) [Mass/Vol] Normal mg/dL Normal [facility] WBC Auto (Bld) [#/Vol]Ordere d By: Marshall Dominguez on 07-10-2023 WBC (Bld) [#/Vol] 21.3 10*3/uL 3.8-11.6 [facility] pH Auto test strip (U)Ordere d By: Marshall Dominguez on 07-10-2023 pH (U) 8.5 [pH] 5.0-9.0 [facility] Alanine aminotransferase [En zymatic activity/volume] in Serum or PlasmaOrdered By: Kadie Hungimtulio on 06-17-2023 ALT [Catalytic activity/Vol] 14 U/L 7-52 [facility] Albumin [Mass/volume] in Ser um or Plasma by Bromocresol green (BCG) dye binding methoOrdered By: Kadie Bullimore on 06-17-2023 Albumin BCG dye [Mass/Vol] 3.4 g/dL 3.5-5.7 [facility] Alkaline phosphatase [Enzyma tic activity/volume] in Serum or PlasmaOrdered By: Kadie Bullimore on 06-17-2023 ALP [Catalytic activity/Vol] 48 U/L 34-104 [facility] Aspartate aminotransferase [ Enzymatic activity/volume] in Serum or PlasmaOrdered By: Kadie Bullimore on 08-21-2023 AST [Catalytic activity/Vol] 15 U/L 13-39 [facility] Basophils Auto (Bld) [#/Vol] Ordered By: Kadie Bullimore on 06-17-2023 Basophils (Bld) [#/Vol] 0.1 10*3/uL 0.0-0.2 [facility] Basophils/100 WBC Auto (Bld) Ordered By: Kadie Bullimore on 06-17-2023 Basophils/100 WBC (Bld) 0.3 % . [facility] Bilirubin.total [Mass/volume ] in Serum or PlasmaOrdered By: Kadie Bullimore on 06-17-2023 Bilirubin [Mass/Vol] 0.4 mg/dL 0.3-1.0 [facility] Calcium [Mass/volume] in Ser um or PlasmaOrdered By: Kadie Bullimore on 06-17-2023 Calcium [Mass/Vol] 9.5 mg/dL 8.6-10.3 [facility] Carbon dioxide, total [Moles /volume] in Serum or PlasmaOrdered By: Kadie Bullimore on 06-17-2023 CO2 [Moles/Vol] 34.6 mmol/L 21.0-31.0 [facility] Chloride [Moles/volume] in S kaveh or PlasmaOrdered By: Kadie Bullimore on 06-17-2023 Chloride [Moles/Vol] 104 mmol/L 98-107 [facility] Creatinine [Mass/volume] in Serum or PlasmaOrdered By: Kadie Bullimore on 06-17-2023 Creatinine [Mass/Vol] 1.24 mg/dL 0.60-1.20 [facility] Eosinophils Auto (Bld) [#/Vo l]Ordered By: Kadie Bullimore on 06-17-2023 Eosinophils (Bld) [#/Vol] 0.0 10*3/uL 0.0-0.45 [facility] Eosinophils/100 WBC Auto (Bl d)Ordered By: Kadie Bullimore on 06-17-2023 Eosinophils/100 WBC (Bld) 0.2 % . [facility] Erythrocyte distribution wid th Auto (RBC) [Ratio]Ordered By: Kadie Bullimore on 06-17-2023 Erythrocyte distribution width (RBC) [Ratio] 21.5 % 11.9-15.3 [facility] Globulin Calc (S) [Mass/Vol] Ordered By: Kadie Jones on 06-17-2023 Globulin (S) [Mass/Vol] 2.9 g/dL [facility] Glucose [Mass/volume] in Ser um or PlasmaOrdered By: Kadie Jones on 06-17-2023 Glucose [Mass/Vol] 103 mg/dL 70-100 [facility] Comment on above: ADA recommended refe rence rangeRandom Glucose Reference Range is dependent on time and content of last meal. Glucose of more than 200 mg/dL in a nonstressed, ambulatory subject supports the diagnosis of Diabetes Mellitus. Hematocrit Auto (Bld) [Volum e fraction]Ordered By: Kadie Jones on 06-17-2023 Hematocrit (Bld) [Volume fraction] 34.6 % 34.0-46.4 [facility] Hemoglobin [Mass/volume] in BloodOrdered By: Kadie Jones on 06-17-2023 Hemoglobin (Bld) [Mass/Vol] 10.9 g/dL 11.8-15.4 [facility] Leukocytes [#/volume] correc juma for nucleated erythrocytes in Blood by Automated counOrdered By: Kadie Jones on 06-17-2023 WBC corrected for nucl RBC Auto (Bld) [#/Vol] 17.4 10*3/uL 3.8-11.6 [facility] Lymphocytes Auto (Bld) [#/Vo l]Ordered By: Kadie Jones on 06-17-2023 Lymphocytes (Bld) [#/Vol] 3.7 10*3/uL 1.00-4.8 [facility] Lymphocytes/100 WBC Auto (Bl d)Ordered By: Kadie Jones on 06-17-2023 Lymphocytes/100 WBC (Bld) 21.2 % . [facility] MCH Auto (RBC) [Entitic mass ]Ordered By: Kadie Jones on 06-17-2023 MCH (RBC) [Entitic mass] 24.8 pg 24.7-34.3 [facility] MCHC Auto (RBC) [Mass/Vol]Or dered By: Kadie Hungimore on 06-17-2023 MCHC (RBC) [Mass/Vol] 31.5 g/dL 32.0-35.0 [facility] MCV Auto (RBC) [Entitic vol] Ordered By: Kaide Bullimore on 06-17-2023 MCV (RBC) [Entitic vol] 78.7 fL 80-100 [facility] Monocyte distribution width [Entitic volume] in Blood by AutomatedOrdered By: Kadie Bullimore on 06-17-2023 Monocyte distribution width Auto (Bld) [Entitic vol] 20.88 % 0.00-20.00 [facility] Comment on above: For adults in ED, MD W > 20.0 may be associated with a higher risk of sepsis during the first 12 hrs of hospital admission Monocytes Auto (Bld) [#/Vol] Ordered By: Kadie Bullimore on 06-17-2023 Monocytes (Bld) [#/Vol] 1.1 10*3/uL 0.0-0.8 [facility] Monocytes/100 WBC Auto (Bld) Ordered By: Kadie Bullimore on 06-17-2023 Monocytes/100 WBC (Bld) 6.6 % . [facility] Natriuretic peptide B [Mass/ Vol]Ordered By: Kadie Bullimore on 06-17-2023 Natriuretic peptide B (Bld) [Mass/Vol] 109.0 pg/mL 5-100 [facility] Neutrophils Auto (Bld) [#/Vo l]Ordered By: Kadie Bullimore on 06-17-2023 Neutrophils (Bld) [#/Vol] 12.4 10*3/uL 1.8-7.7 [facility] Neutrophils/100 WBC Auto (Bl d)Ordered By: Kadie Bullimore on 06-17-2023 Neutrophils/100 WBC (Bld) 71.7 % . [facility] No Panel InformationOrdered By: Kadie Hustonore on 06-17-2023 Estimated GFR (CKD-EPI) 44.823 mL/Min [facility] Creatinine Clearance (Chem 35.64 [facility] Nucleated erythrocytes [Pres ence] in Blood by Automated countOrdered By: Kadie Hungimore on 06-17-2023 Nucleated RBC Auto Ql (Bld) 0.1 /100{WBC} 0-0.5 [facility] Platelet mean volume Auto (B ld) [Entitic vol]Ordered By: Kadie Bullimore on 06-17-2023 Platelet mean volume (Bld) [Entitic vol] 7.4 fL 6.3-10.7 [facility] Platelets Auto (Bld) [#/Vol] Ordered By: Kadie Bullimore on 06-17-2023 Platelets (Bld) [#/Vol] 257 10*3/uL 150-450 [facility] Potassium [Moles/volume] in Serum or PlasmaOrdered By: Kadie Bullimore on 06-17-2023 Potassium [Moles/Vol] 3.7 mmol/L 3.5-5.1 [facility] Protein [Mass/volume] in Ser um or PlasmaOrdered By: Kadie Bullimore on 06-17-2023 Protein [Mass/Vol] 6.3 g/dL 6.4-8.9 [facility] RBC Auto (Bld) [#/Vol]Ordere d By: Kadie Bullimore on 06-17-2023 RBC (Bld) [#/Vol] 4.39 10*6/uL 3.60-5.00 [facility] Serum or plasma albumin/glob ulin mass ratioOrdered By: Kadie Bullimore on 06-17-2023 Albumin/Globulin [Mass ratio] 1.2 {ratio} [facility] Serum or plasma anion gap de terminationOrdered By: Kadie Bullimore on 06-17-2023 Anion gap [Moles/Vol] 8.1 mmol/L 6.0-15.0 [facility] Sodium [Moles/volume] in Ser um or PlasmaOrdered By: Kadie Bullimore on 06-17-2023 Sodium [Moles/Vol] 143 mmol/L 136-145 [facility] Troponin I.cardiac [Mass/vol ume] in Serum or Plasma by Detection limit <= 0.01 ng/Ordered By: Kadie Bullimore on 06-17-2023 Troponin I.cardiac DL <= 0.01 ng/mL [Mass/Vol] 9.5 pg/mL 0.0-15.0 [facility] Urea nitrogen [Mass/volume] in Serum or PlasmaOrdered By: Kadie Jones on 06-17-2023 Urea nitrogen [Mass/Vol] 25 mg/dL 7-25 [facility] WBC Auto (Bld) [#/Vol]Ordere d By: Kadie Hustonore on 06-17-2023 WBC (Bld) [#/Vol] 17.4 10*3/uL 3.8-11.6 [facility] Anisocytosis LM Ql (Bld)Orde red By: Carla Hagan on 12-31-2022 Anisocytosis Ql (Bld) Moderate [facility] Basophils Auto (Bld) [#/Vol] Ordered By: Carla Hagan on 12-31-2022 Basophils (Bld) [#/Vol] N/A [facility] Basophils/100 WBC Auto (Bld) Ordered By: Carla Hagan on 12-31-2022 Basophils/100 WBC (Bld) N/A [facility] Basophils/100 WBC Manual cnt (Bld)Ordered By: Carla Hagan on 12-31-2022 Basophils/100 WBC (Bld) 1 % 0-2 [facility] Calcium [Mass/volume] in Ser um or PlasmaOrdered By: Carla Hagan on 12-31-2022 Calcium [Mass/Vol] 8.6 mg/dL 8.2-10.2 [facility] Carbon dioxide, total [Moles /volume] in Serum or PlasmaOrdered By: Carla Hagan on 12-31-2022 CO2 [Moles/Vol] 26.2 mmol/L 22.0-30.0 [facility] Chloride [Moles/volume] in S kaveh or PlasmaOrdered By: Carla Hagan on 12-31-2022 Chloride [Moles/Vol] 99 mmol/L 95-114 [facility] Creatinine and Glomerular fi ltration rate.predicted panel (S/P/Bld)Ordered By: Carla Hagan on 12-31-2022 Creatinine [Mass/Vol] 0.99 mg/dL 0.44-1.03 [facility] Eosinophils Auto (Bld) [#/Vo l]Ordered By: Carla Hagan on 12-31-2022 Eosinophils (Bld) [#/Vol] N/A [facility] Eosinophils/100 WBC Auto (Bl d)Ordered By: Carla Hagan on 12-31-2022 Eosinophils/100 WBC (Bld) N/A [facility] Eosinophils/100 WBC Manual c nt (Bld)Ordered By: Carla Hagan on 12-31-2022 Eosinophils/100 WBC (Bld) 1 % 1-3 [facility] Erythrocyte distribution wid th Auto (RBC) [Ratio]Ordered By: Carla Hagan on 12-31-2022 Erythrocyte distribution width (RBC) [Ratio] 15.7 % 11.9-15.3 [facility] Estimated glomerular filtrat ion rate (GFR) non- AmericanOrdered By: Carla Hagan on 12-31-2022 GFR/1.73 sq M.predicted among non-blacks MDRD (S/P/Bld) [Vol rate/Area] 54 mL/Min [facility] Giant platelets/100 leukocyt es [Ratio] in Blood by Manual countOrdered By: Carla Hagan on 12-31-2022 Giant platelets/100 WBC Manual cnt (Bld) [Ratio] 1 /100{WBC} [facility] Glucose [Mass/volume] in Ser um or PlasmaOrdered By: Carla Hagan on 12-31-2022 Glucose [Mass/Vol] 115 mg/dL 70-100 [facility] Comment on above: ADA recommended refe rence rangeRandom Glucose Reference Range is dependent on time and content of last meal. Glucose of more than 200 mg/dL in a nonstressed, ambulatory subject supports the diagnosis of Diabetes Mellitus. Helmet cell detectionOrdered By: Carla Hagan on 12-31-2022 Helmet cells LM Ql (Bld) Slight [facility] Hematocrit Auto (Bld) [Volum e fraction]Ordered By: Carla Hagan on 12-31-2022 Hematocrit (Bld) [Volume fraction] 30.2 % 34.0-46.4 [facility] Hemoglobin [Mass/volume] in BloodOrdered By: Carla Hagan on 12-31-2022 Hemoglobin (Bld) [Mass/Vol] 9.8 g/dL 11.8-15.4 [facility] Hypochromia LM Ql (Bld)Order ed By: Carla Hagan on 12-31-2022 Hypochromia Ql (Bld) Slight [facility] Laboratory - Chemistry and C hemistry - challengeOrdered By: Carla Hagan on 12-31-2022 Magnesium [Mass/Vol] 1.5 mg/dL 1.6-2.6 [facility] Leukocytes [#/volume] correc juma for nucleated erythrocytes in Blood by Automated counOrdered By: Carla Hagan on 12-31-2022 WBC corrected for nucl RBC Auto (Bld) [#/Vol] 13.4 10*3/uL 3.8-11.6 [facility] Lymphocytes Auto (Bld) [#/Vo l]Ordered By: Carla Hagan on 12-31-2022 Lymphocytes (Bld) [#/Vol] N/A [facility] Lymphocytes/100 WBC Auto (Bl d)Ordered By: Carla Hagan on 12-31-2022 Lymphocytes/100 WBC (Bld) N/A [facility] Lymphocytes/100 WBC Manual c nt (Bld)Ordered By: Carla Hagan on 12-31-2022 Lymphocytes/100 WBC (Bld) 8 % 18-42 [facility] MCH Auto (RBC) [Entitic mass ]Ordered By: Carla Hagan on 12-31-2022 MCH (RBC) [Entitic mass] 25.3 pg 24.7-34.3 [facility] MCHC Auto (RBC) [Mass/Vol]Or dered By: Carla Hagan on 12-31-2022 MCHC (RBC) [Mass/Vol] 32.3 g/dL 32.0-35.0 [facility] MCV Auto (RBC) [Entitic vol] Ordered By: Carla Hagan on 12-31-2022 MCV (RBC) [Entitic vol] 78.2 fL 80-100 [facility] Microcytes LM Ql (Bld)Ordere d By: Carla Hagan on 12-31-2022 Microcytes Ql (Bld) Moderate [facility] Monocytes Auto (Bld) [#/Vol] Ordered By: Carla Hagan on 12-31-2022 Monocytes (Bld) [#/Vol] N/A [facility] Monocytes/100 WBC Auto (Bld) Ordered By: Carla Hagan on 12-31-2022 Monocytes/100 WBC (Bld) N/A [facility] Monocytes/100 WBC Manual cnt (Bld)Ordered By: Carla Hagan on 12-31-2022 Monocytes/100 WBC (Bld) 5 % 2-11 [facility] Neutrophils Auto (Bld) [#/Vo l]Ordered By: Carla Hagan on 12-31-2022 Neutrophils (Bld) [#/Vol] N/A [facility] Neutrophils/100 WBC Auto (Bl d)Ordered By: Carla Hagan on 12-31-2022 Neutrophils/100 WBC (Bld) N/A [facility] No Panel InformationOrdered By: Carla Hagan on 12-31-2022 Estimated GFR () > 60 mL/Min [facility] Comment on above: GFR estimated refere nce range: According to KDOQI guidelines, <60 ml/min/1.73m2 is sufficient to diagnose a patient with chronic kidney disease. Pharmacy Creatinine Clearance (Chem 45.60 [facility] Nucleated erythrocytes [Pres ence] in Blood by Automated countOrdered By: Carla Hagan on 12-31-2022 Nucleated RBC Auto Ql (Bld) N/A [facility] Phosphate [Mass/volume] in S kaveh or PlasmaOrdered By: Carla Hagan on 12-31-2022 Phosphate [Mass/Vol] 3.5 mg/dL 2.5-4.6 [facility] Platelet adequacy [Presence] in Blood by Light microscopyOrdered By: Carla Hagan on 12-31-2022 Platelets LM Ql (Bld) Normal Normal [facility] Platelet mean volume Auto (B ld) [Entitic vol]Ordered By: Carla Hagan on 12-31-2022 Platelet mean volume (Bld) [Entitic vol] 6.6 fL 6.3-10.7 [facility] Platelet morphology finding [Identifier] in BloodOrdered By: Carla Hagan on 12-31-2022 Platelet morphology finding Nom (Bld) Normal Normal [facility] Platelets Auto (Bld) [#/Vol] Ordered By: Carla Hagan on 12-31-2022 Platelets (Bld) [#/Vol] 447 10*3/uL 150-450 [facility] Poikilocytosis [Presence] in Blood by Light microscopyOrdered By: Carla Hagan on 12-31-2022 Poikilocytosis LM Ql (Bld) Slight [facility] Polychromasia [Presence] in Blood by Light microscopyOrdered By: Carla Hagan on 12-31-2022 Polychromasia LM Ql (Bld) Slight [facility] Potassium [Moles/volume] in Serum or PlasmaOrdered By: Carla Hagan on 12-31-2022 Potassium [Moles/Vol] 4.1 mmol/L 3.5-5.1 [facility] RBC Auto (Bld) [#/Vol]Ordere d By: Carla Hagan on 12-31-2022 RBC (Bld) [#/Vol] 3.86 10*6/uL 3.60-5.00 [facility] RBC morphologyOrdered By: Ra carey Hagan on 12-31-2022 RBC morphology finding Nom (Bld) N/A [facility] Segmented neutrophils/100 WB C Manual cnt (Bld)Ordered By: Carla Hagan on 12-31-2022 Segmented neutrophils/100 WBC (Bld) 86 % 50-70 [facility] Serum or plasma anion gap de terminationOrdered By: Carla Hagan on 12-31-2022 Anion gap [Moles/Vol] 12.9 mmol/L 6.0-15.0 [facility] Sodium [Moles/volume] in Ser um or PlasmaOrdered By: Carla Hagan on 12-31-2022 Sodium [Moles/Vol] 134 mmol/L 136-146 [facility] Urea nitrogen [Mass/volume] in Serum or PlasmaOrdered By: Carla Hagan on 12-31-2022 Urea nitrogen [Mass/Vol] 18 mg/dL 9 [facility] WBC Auto (Bld) [#/Vol]Ordere d By: Carla Hagan on 12-31-2022 WBC (Bld) [#/Vol] 13.4 10*3/uL 3.8-11.6 [facility] Creatine kinase [Enzymatic a ctivity/volume] in Serum or PlasmaOrdered By: Carla Hagan on 12-28-2022 CK [Catalytic activity/Vol] 108 U/L 22 [facility] Automated epithelial cells c ount in urine sediment (number/area)Ordered By: Maddy Morrissey on 12-27-2022 Epithelial cells Auto (Urine sed) [#/Area] 3-4 [HPF] 0-2 [facility] Automated erythrocytes count in urine sediment (number/area)Ordered By: Maddy Morrissey on 12-27-2022 RBC Auto (Urine sed) [#/Area] 0-1 [HPF] 0-4 [facility] Automated leukocytes count i n urine sediment (number/area)Ordered By: Maddy Morrissey on 12-27-2022 WBC Auto (Urine sed) [#/Area] 5-9 [HPF] 0-4 [facility] Bilirubin Test strip Ql (U)O rdered By: Maddy Morrissey on 12-27-2022 Bilirubin Ql (U) Negative Negative [facility] Color Auto (U)Ordered By: Corwin Morrissey on 12-27-2022 Color (U) Yellow Yellow [facility] Folate [Mass/volume] in Seru m or PlasmaOrdered By: Eve Mann on 12-27-2022 Folate [Mass/Vol] ng/mL >5.9 [facility] Comment on above: Folate reference ran ge: >5.9 ng/mlThe WHO technical consultation on folate and vitamin [id number] has determined that folate concentrations lessthan 4 ng/ml are considered deficient. Ketones Auto test strip (U) [Mass/Vol]Ordered By: Maddy Morrissey on 12-27-2022 Ketones (U) [Mass/Vol] Negative Negative Fi [facility] Laboratory - Chemistry and C hemistry - challengeOrdered By: Eve Mann on 12-27-2022 Cobalamin (Vitamin B12) [Mass/Vol] 994 pg/mL 180-914 [facility] Nitrite Test strip Ql (U)Ord ered By: Maddy Morrissey on 12-27-2022 Nitrite Ql (U) Positive Negative [facility] Protein Auto test strip (U) [Mass/Vol]Ordered By: Maddy Morrissey on 12-27-2022 Protein (U) [Mass/Vol] Trace mg/dL Negative [facility] Specific gravity Auto test s trip (U) [Rel density]Ordered By: Maddy Morrissey on 12-27-2022 Specific gravity (U) [Rel density] > 1.050 1.001-1.03 0 [facility] Urine bacteria detection by automated methodOrdered By: Maddy Morrissey on 12-27-2022 Bacteria Auto Ql (U) 2+ None Seen [facility] Urine clarity by refractomet ry automatedOrdered By: Maddy Morrissey on 12-27-2022 Clarity Refractometry automated (U) Cloudy Clear [facility] Urine culture routineOrdered By: Maddy Morrissey on 12-27-2022 Bacteria identified Cx Nom (U) Escherichia coli [facility] Urine glucose measurement by automated test strip (mass/volume)Ordered By: Maddy Morrissey on 12-27-2022 Glucose Auto test strip (U) [Mass/Vol] Normal mg/dL Normal [facility] Urine hemoglobin detection b y automated test stripOrdered By: Maddy Morrissey on 12-27-2022 Hemoglobin Auto test strip Ql (U) Trace Negative [facility] Urine leukocyte esterase det ection by automated test stripOrdered By: Maddy Morrissey on 12-27-2022 Leukocyte esterase Auto test strip Ql (U) 3+ Negative [facility] Urobilinogen Auto test strip (U) [Mass/Vol]Ordered By: Maddy Morrissey on 12-27-2022 Urobilinogen (U) [Mass/Vol] Normal mg/dL Normal [facility] pH Auto test strip (U)Ordere d By: Maddy Morrissey on 12-27-2022 pH (U) 5.0 [pH] 5.0-9.0 [facility] Activated partial thrombopla stin time (aPTT) in platelet poor plasma by coagulation aOrdered By: Maddy Morrissey on 12-26-2022 aPTT Coag (PPP) [Time] 30.8 s 25.1-36.5 [facility] Basophils Auto (Bld) [#/Vol] Ordered By: Maddy Morrissey on 12-26-2022 Basophils (Bld) [#/Vol] 0.1 10*3/uL 0.0-0.2 [facility] Basophils/100 WBC Auto (Bld) Ordered By: Maddy Morrissey on 12-26-2022 Basophils/100 WBC (Bld) 0.5 % . [facility] Calcium [Mass/volume] in Ser um or PlasmaOrdered By: Maddy Morrissey on 12-26-2022 Calcium [Mass/Vol] 9.0 mg/dL 8.2-10.2 [facility] Carbon dioxide, total [Moles /volume] in Serum or PlasmaOrdered By: Maddy Morrissey on 12-26-2022 CO2 [Moles/Vol] 25.8 mmol/L 22.0-30.0 [facility] Chloride [Moles/volume] in S kaveh or PlasmaOrdered By: Maddy Morrissey on 12-26-2022 Chloride [Moles/Vol] 104 mmol/L 95-114 [facility] Creatinine and Glomerular fi ltration rate.predicted panel (S/P/Bld)Ordered By: Maddy Morrissey on 12-26-2022 Creatinine [Mass/Vol] 1.22 mg/dL 0.44-1.03 [facility] Eosinophils Auto (Bld) [#/Vo l]Ordered By: Maddy Morrissey on 12-26-2022 Eosinophils (Bld) [#/Vol] 0.1 10*3/uL 0.0-0.45 [facility] Eosinophils/100 WBC Auto (Bl d)Ordered By: Maddy Morrissey on 12-26-2022 Eosinophils/100 WBC (Bld) 1.1 % . [facility] Erythrocyte distribution wid th Auto (RBC) [Ratio]Ordered By: Maddy Morrissey on 12-26-2022 Erythrocyte distribution width (RBC) [Ratio] 15.9 % 11.9-15.3 [facility] Estimated glomerular filtrat ion rate (GFR) non- AmericanOrdered By: Maddy Morrissey on 12-26-2022 GFR/1.73 sq M.predicted among non-blacks MDRD (S/P/Bld) [Vol rate/Area] 43 mL/Min [facility] Glucose [Mass/volume] in Ser um or PlasmaOrdered By: Maddy Morrissey on 12-26-2022 Glucose [Mass/Vol] 128 mg/dL 70-100 [facility] Comment on above: ADA recommended refe rence rangeRandom Glucose Reference Range is dependent on time and content of last meal. Glucose of more than 200 mg/dL in a nonstressed, ambulatory subject supports the diagnosis of Diabetes Mellitus. Hematocrit Auto (Bld) [Volum e fraction]Ordered By: Maddy Morrissey on 12-26-2022 Hematocrit (Bld) [Volume fraction] 29.7 % 34.0-46.4 [facility] Hemoglobin [Mass/volume] in BloodOrdered By: Maddy Morrissey on 12-26-2022 Hemoglobin (Bld) [Mass/Vol] 9.3 g/dL 11.8-15.4 [facility] Laboratory - Chemistry and C hemistry - challengeOrdered By: Maddy Morrissey on 12-26-2022 Natriuretic peptide B (Bld) [Mass/Vol] 49.0 pg/mL 5-100 [facility] Laboratory - CoagulationOrde red By: Maddy Morrissey on 12-26-2022 PT Coag (PPP) [Time] 14.5 s 9.0-12.9 [facility] Leukocytes [#/volume] correc juma for nucleated erythrocytes in Blood by Automated counOrdered By: Maddy Morrissey on 12-26-2022 WBC corrected for nucl RBC Auto (Bld) [#/Vol] 12.0 10*3/uL 3.8-11.6 [facility] Lymphocytes Auto (Bld) [#/Vo l]Ordered By: Maddy Morrissey on 12-26-2022 Lymphocytes (Bld) [#/Vol] 3.0 10*3/uL 1.00-4.8 [facility] Lymphocytes/100 WBC Auto (Bl d)Ordered By: Maddy Morrissey on 12-26-2022 Lymphocytes/100 WBC (Bld) 24.8 % . [facility] MCH Auto (RBC) [Entitic mass ]Ordered By: Maddy Morrissey on 12-26-2022 MCH (RBC) [Entitic mass] 24.8 pg 24.7-34.3 [facility] MCHC Auto (RBC) [Mass/Vol]Or dered By: Maddy Morrissey on 12-26-2022 MCHC (RBC) [Mass/Vol] 31.2 g/dL 32.0-35.0 [facility] MCV Auto (RBC) [Entitic vol] Ordered By: Maddy Morrissey on 12-26-2022 MCV (RBC) [Entitic vol] 79.4 fL 80-100 [facility] Monocyte distribution width [Entitic volume] in Blood by AutomatedOrdered By: Maddy Morrissey on 12-26-2022 Monocyte distribution width Auto (Bld) [Entitic vol] 20.22 % 0.00-20.00 [facility] Comment on above: For adults in ED, MD W > 20.0 may be associated with a higher risk of sepsis during the first 12 hrs of hospital admission Monocytes Auto (Bld) [#/Vol] Ordered By: Maddy Morrissey on 12-26-2022 Monocytes (Bld) [#/Vol] 1.2 10*3/uL 0.0-0.8 [facility] Monocytes/100 WBC Auto (Bld) Ordered By: Maddy Morrissey on 12-26-2022 Monocytes/100 WBC (Bld) 10.1 % . [facility] Neutrophils Auto (Bld) [#/Vo l]Ordered By: Maddy Morrissey on 12-26-2022 Neutrophils (Bld) [#/Vol] 7.6 10*3/uL 1.8-7.7 [facility] Neutrophils/100 WBC Auto (Bl d)Ordered By: Maddy Morrissey on 12-26-2022 Neutrophils/100 WBC (Bld) 63.5 % . [facility] No Panel InformationOrdered By: Maddy Morrissey on 12-26-2022 Estimated GFR () 52 mL/Min [facility] Comment on above: GFR estimated refere nce range: According to KDOQI guidelines, <60 ml/min/1.73m2 is sufficient to diagnose a patient with chronic kidney disease. Pharmacy Creatinine Clearance (Chem 37.20 [facility] Nucleated erythrocytes [Pres ence] in Blood by Automated countOrdered By: Maddy Morrissey on 12-26-2022 Nucleated RBC Auto Ql (Bld) 0.1 /100{WBC} 0-0.5 [facility] Platelet mean volume Auto (B ld) [Entitic vol]Ordered By: Maddy Morrissey on 12-26-2022 Platelet mean volume (Bld) [Entitic vol] 6.5 fL 6.3-10.7 [facility] Platelet poor plasma interna tional normalized ratio (INR) by coagulation assay (relatOrdered By: Maddy Morrissey on 12-26-2022 INR Coag (PPP) [Relative time] 1.3 {INR} [facility] Comment on above: INR Therapeutic Rang e [...] 12-26-2022 Platelets (Bld) [#/Vol] 450 10*3/uL 150-450 [facility] Potassium [Moles/volume] in Serum or PlasmaOrdered By: Maddy Morrissey on 12-26-2022 Potassium [Moles/Vol] 3.9 mmol/L 3.5-5.1 [facility] RBC Auto (Bld) [#/Vol]Ordere d By: Maddy Morrissey on 12-26-2022 RBC (Bld) [#/Vol] 3.74 10*6/uL 3.60-5.00 [facility] Serum or plasma anion gap de terminationOrdered By: Maddy Morrissey on 12-26-2022 Anion gap [Moles/Vol] 10.1 mmol/L 6.0-15.0 [facility] Sodium [Moles/volume] in Ser um or PlasmaOrdered By: Maddy Morrissey on 12-26-2022 Sodium [Moles/Vol] 136 mmol/L 136-146 [facility] Troponin I.cardiac [Mass/vol ume] in Serum or Plasma by High sensitivity methodOrdered By: Maddy Morrissey on 12-26-2022 Troponin I.cardiac High sensitivity method [Mass/Vol] 6 pg/mL 0-15 [facility] Urea nitrogen [Mass/volume] in Serum or PlasmaOrdered By: Maddy Morrissey on 12-26-2022 Urea nitrogen [Mass/Vol] 21 mg/dL 9-23 [facility] WBC Auto (Bld) [#/Vol]Ordere d By: Maddy Morrissey on 12-26-2022 WBC (Bld) [#/Vol] 12.0 10*3/uL 3.8-11.6 [facility] Basophils Auto (Bld) [#/Vol] Ordered By: Hilario Yeung on 05-31-2022 Basophils (Bld) [#/Vol] 0.0 10*3/uL 0.0-0.2 [facility] Basophils/100 WBC Auto (Bld) Ordered By: Hilraio Yeung on 05-31-2022 Basophils/100 WBC (Bld) 0.7 % . [facility] Blood hemoglobin measurement (mass/volume)Ordered By: Hilario Yeung on 05-31-2022 Hemoglobin (Bld) [Mass/Vol] 11.6 g/dL 11.8-15.4 [facility] Blood leukocytes automated c ount (number/volume)Ordered By: Hilario Yeung on 05-31-2022 WBC (Bld) [#/Vol] 5.9 10*3/uL 4.5-11.0 [facility] Creatinine and Glomerular fi ltration rate.predicted panel (S/P/Bld)Ordered By: Hilario Yeung on 05-31-2022 Creatinine [Mass/Vol] 1.22 mg/dL 0.44-1.03 [facility] Eosinophils Auto (Bld) [#/Vo l]Ordered By: Hilario Yeung on 05-31-2022 Eosinophils (Bld) [#/Vol] 0.3 10*3/uL 0.0-0.45 [facility] Eosinophils/100 WBC Auto (Bl d)Ordered By: Hilario Yeung on 05-31-2022 Eosinophils/100 WBC (Bld) 4.4 % . [facility] Erythrocyte distribution wid th Auto (RBC) [Ratio]Ordered By: Hilario Yeung on 05-31-2022 Erythrocyte distribution width (RBC) [Ratio] 16.9 % 11.9-15.3 [facility] Estimated glomerular filtrat ion rate (GFR) non- AmericanOrdered By: Hilario Yeung on 05-31-2022 GFR/1.73 sq M.predicted among non-blacks MDRD (S/P/Bld) [Vol rate/Area] 43 mL/Min [facility] Hematocrit Auto (Bld) [Volum e fraction]Ordered By: Hilario Yeung on 05-31-2022 Hematocrit (Bld) [Volume fraction] 36.6 % 34.0-46.4 [facility] Laboratory - Hematology and Cell countsOrdered By: Hilario Yeung on 05-31-2022 Nucleated RBC/100 WBC (Bld) [Ratio] 0.1 % 0-0.5 [facility] Lymphocytes Auto (Bld) [#/Vo l]Ordered By: Hilario Yeung on 05-31-2022 Lymphocytes (Bld) [#/Vol] 2.4 10*3/uL 1.00-4.8 [facility] Lymphocytes/100 WBC Auto (Bl d)Ordered By: Hilario Yeung on 05-31-2022 Lymphocytes/100 WBC (Bld) 41.3 % . [facility] MCH Auto (RBC) [Entitic mass ]Ordered By: Hilario Yeung on 05-31-2022 MCH (RBC) [Entitic mass] 25.8 pg 24.7-34.3 [facility] MCHC Auto (RBC) [Mass/Vol]Or dered By: Hilario Yeung on 05-31-2022 MCHC (RBC) [Mass/Vol] 31.7 g/dL 32.0-35.0 [facility] MCV Auto (RBC) [Entitic vol] Ordered By: Hilario Yeung on 05-31-2022 MCV (RBC) [Entitic vol] 81.4 fL 80-100 [facility] Monocytes Auto (Bld) [#/Vol] Ordered By: Hilario Yeung on 05-31-2022 Monocytes (Bld) [#/Vol] 0.6 10*3/uL 0.0-0.8 [facility] Monocytes/100 WBC Auto (Bld) Ordered By: Hilario Yeung on 05-31-2022 Monocytes/100 WBC (Bld) 10.6 % . [facility] Neutrophils Auto (Bld) [#/Vo l]Ordered By: Hilario Yeung on 05-31-2022 Neutrophils (Bld) [#/Vol] 2.5 10*3/uL 1.8-7.7 [facility] Neutrophils/100 WBC Auto (Bl d)Ordered By: Hilario Yeung on 05-31-2022 Neutrophils/100 WBC (Bld) 43.0 % . [facility] No Panel InformationOrdered By: Hilario Yeung on 05-31-2022 Estimated GFR () 52 mL/Min [facility] Comment on above: GFR estimated refere nce range: According to KDOQI guidelines, <60 ml/min/1.73m2 is sufficient to diagnose a patient with chronic kidney disease. Pharmacy Creatinine Clearance (Chem 39.11 [facility] Platelet mean volume Auto (B ld) [Entitic vol]Ordered By: Hilario Yeung on 05-31-2022 Platelet mean volume (Bld) [Entitic vol] 7.5 fL 6.3-10.7 [facility] Platelets Auto (Bld) [#/Vol] Ordered By: Hilario Yeung on 05-31-2022 Platelets (Bld) [#/Vol] 209 10*3/uL 150-450 [facility] RBC Auto (Bld) [#/Vol]Ordere d By: Hilario Yeung on 05-31-2022 RBC (Bld) [#/Vol] 4.50 10*6/uL 3.60-5.00 [facility] Serum or plasma calcium roly urement (mass/volume)Ordered By: Hilario Yeung on 05-31-2022 Calcium [Mass/Vol] 9.1 mg/dL 8.2-10.2 [facility] Serum or plasma chloride deirdre surement (moles/volume)Ordered By: Hilario Yeung on 05-31-2022 Chloride [Moles/Vol] 100 mmol/L 95-114 [facility] Serum or plasma glucose roly urement (mass/volume)Ordered By: Hilario Yeung on 05-31-2022 Glucose [Mass/Vol] 99 mg/dL 70-100 [facility] Comment on above: ADA recommended refe rence range Random Glucose Reference Range is dependent on time and content of last meal. Glucose of more than 200 mg/dL in a nonstressed, ambulatory subject supports the diagnosis of Diabetes Mellitus. Serum or plasma potassium me asurement (moles/volume)Ordered By: Hilario Yeung on 05-31-2022 Potassium [Moles/Vol] 4.2 mmol/L 3.5-5.1 [facility] Serum or plasma sodium measu rement (moles/volume)Ordered By: Hilario Yeung on 05-31-2022 Sodium [Moles/Vol] 138 mmol/L 136-146 [facility] Serum or plasma total carbon dioxide measurement (moles/volume)Ordered By: Hilario Yeung on 05-31-2022 CO2 [Moles/Vol] 29.7 mmol/L 22.0-30.0 [facility] Serum or plasma urea nitroge n measurement (mass/volume)Ordered By: Hilario Yeung on 05-31-2022 Urea nitrogen [Mass/Vol] 13 mg/dL 9-23 [facility] SCREENING MAMMOGRAM W/[place], BILATERAL*on 04-27-2022 SCREENING MAMMOGRAM [...] VERY IMPORTANT TO YOUR HEALTH. THE CURRENT [employer]PREH[employer] GUIDELINES RECOMMENDS ANNUAL MAMMOGRAPHY BEGINNING AT AGE 40 THIS FACILITY USES A REMINDER SYSTEM TO ENSURE ALL PATIENTS RECEIVE REMINDER NOTIFICATIONS AT THE APPROPRIATE TIME BASED ON THE RECOMMENDATIONS OF THIS EXAM. Board Certified Radiologist. Accredited by the ACR and FDA. Report reported and signed by Edgar Hooper on 05/01/2022 0957 Normal [facility] CT Low Dose Lung Screeningon [...] by Devonte Gomez on 04/27/2022 1239 Normal [facility] XR Hip Complete Left*on 02-25 [...] by Wicho Bowman on 03/14/2022 1550 Normal [facility] Iap Displays Analyst XR Spine Lumbar 4+ Views*on 03-14-2022 XR [...] by Wicho Bowman on 03/14/2022 1546 Normal [facility] Specialist CNPTOUTREACHon 12-20-[facility] Outreach ([facility]) -- GERA PERDUE ([id number]) 1945 F Date Time Provider Department 12/20/20 DERICK LOPEZ During your visit today, we recorded the following information about you: Allergies As of Date: 12/20/2020 Noted Allergy Reaction ASPRIN (ASPIRIN) 03/02/2019 1 - Mental Status Change Date Reviewed: 05/04/2020 Reviewed by: Prasad Phillips - Fully Assessed Order(s):SARS-COVID VACCINE 1ST DOSE APPT [92593IQR] Order #: [id number] FUTURE Prescriptions as of 12/20/2020 Sig: HYDROCODONE [...] [E66.9] 02/25/2015 Letter Text Encounter Status:Closed by IsaiUSER on 12/23/20 [facility] PROGRESSon 05-03-2020 PROGRESS HNO ID: [id number] Author: Prasad Phillips Service: ? Author Type: Physician Type: Progress Notes Filed: 05/04/2020 8:19 PM Note Text: Gera Perdue : 1945 Half-Way: [facility] PCP: guanako Date last seen: [...] DPM Normal [facility] CBC Auto Differentialon 10-0 Basophils (Bld) [#/Vol] 0.03 10*3/uL [place] Basophils/100 WBC (Bld) 0 % 0 - 2 % [place] Differential Type NOT REPORTED [place] Eosinophils (Bld) [#/Vol] 0.14 10*3/uL [place] Eosinophils/100 WBC (Bld) 2 % 1 - 4 % [place] Erythrocyte distribution width (RBC) [Ratio] 15.0 % High 11.8 - 14.4 % [place] Hematocrit (Bld) [Volume fraction] 32.7 % Low 36.3 - 47.1 % [place] Hemoglobin (Bld) [Mass/Vol] 9.9 g/dL Low 11.9 - 15.1 g/dL [place] Immature granulocytes (Bld) [#/Vol] 0.03 10*3/uL [place] Immature granulocytes (Bld) [#/Vol] 0 % 0 [place] Interpretation and review of laboratory results Abnormal [place] Lymphocytes (Bld) [#/Vol] 1.67 10*3/uL [place] Lymphocytes/100 WBC (Bld) 22 % Low 24 - 43 % [place] MCH (RBC) [Entitic mass] 27.7 pg 25.2 - 33.5 pg [place] MCHC (RBC) [Mass/Vol] 30.3 g/dL 28.4 - 34.8 g/dL [place] MCV (RBC) [Entitic vol] 91.3 fL 82.6 - 102.9 fL [place] Monocytes (Bld) [#/Vol] 1.00 10*3/uL [place] Monocytes/100 WBC (Bld) 13 % High 3 - 12 % [place] Platelet mean volume (Bld) [Entitic vol] 9.1 fL 8.1 - 13.5 fL [place] Platelets (Bld) [#/Vol] 184 10*3/uL [place] Platelets (Bld) [#/Vol] NOT REPORTED [place] RBC (Bld) [#/Vol] 3.58 10*6/uL Low 3.95 - 5.11 m/uL [place] RBC morphology finding Nom (Bld) ANISOCYTOSIS PRESENT [place] Segmented neutrophils/100 WBC (Bld) 63 % 36 - 65 % [place] Segs Absolute 4.63 [place] WBC (Bld) [#/Vol] 7.5 10*3/uL [place] WBC (Bld) [#/Vol] 0.0 10*3/uL 0.0 per 100 WBC [place] WBC Morphology NOT REPORTED [place] CBC with Diffon 08-04-2019 Abs. Basophil 0.03 k/uL Normal 0.00-0.20 [facility] Comment on above: Performed By: #### C DP #### [facility] [employer] [address] [place], [place] [id number] Ship[employer] Helper: Juan Perera MD Abs.Imm.Granulocyte 0.03 k/uL Normal 0.00-0.30 [facility] Comment on above: Performed By: #### C DP #### [facility] [address] [place], [place] [phone] [employer] Helper: Juan Perera MD Abs.Neutrophil (Seg) 4.63 k/uL Normal 1.50-8.10 [facility] Comment on above: Performed By: #### C DP #### [address] [place] [address] [employer] Helper: Juan Perera MD Basophils/100 WBC (Bld) 0 % Normal 0-2 [facility] Comment on above: Performed By: #### C DP #### [address] [address] [employer] Helper: Juan Perera MD Eosinophils (Bld) [#/Vol] 0.14 10*3/uL Normal 0.00-0.44 [facility] Comment on above: Performed By: #### C DP #### [address] [address] [employer] Helper: Juan Perera MD Eosinophils/100 WBC (Bld) 2 % Normal 1-4 [facility] Comment on above: Performed By: #### C DP #### [address] [address] [employer] Helper: Juan Perera MD Erythrocyte distribution width (RBC) [Ratio] 15.0 % High 11.8-14.4 [facility] Comment on above: Performed By: #### C DP #### [address] [address] [employer] Helper: Juan Perera MD Hematocrit (Bld) [Volume fraction] 32.7 % Low 36.3-47.1 [facility] Comment on above: Performed By: #### C DP #### [address] [address] [employer] Helper: Juan Perera MD Hemoglobin (Bld) [Mass/Vol] 9.9 g/dL Low 11.9-15.1 [facility] Comment on above: Performed By: #### C DP #### [address] [address] [employer] Helper: Juan Perera MD Immature granulocytes (Bld) [#/Vol] 0 % Normal 0 [facility] Comment on above: Performed By: #### C DP #### [address] [address] [employer] Helper: Juan Perera MD Lymphocytes (Bld) [#/Vol] 1.67 10*3/uL Normal 1.10-3.70 [facility] Comment on above: Performed By: #### C DP #### [place] [address] [employer] Helper: Juan Perera MD Lymphocytes/100 WBC (Bld) 22 % Low 24-43 [facility] Comment on above: Performed By: #### C DP #### [place] [address] [employer] Helper: Juan Perera MD MCH (RBC) [Entitic mass] 27.7 pg Normal 25.2-33.5 [facility] Comment on above: Performed By: #### C DP #### [place] [address] [employer] Helper: Juan Perera MD MCHC (RBC) [Mass/Vol] 30.3 g/dL Normal 28.4-34.8 [facility] Comment on above: Performed By: #### C DP #### [place] [address] [employer] Helper: Juan Perera MD MCV (RBC) [Entitic vol] 91.3 fL Normal 82.6-102.9 [facility] Comment on above: Performed By: #### C DP #### [place] [address] [employer] Helper: Juan Perera MD Monocytes (Bld) [#/Vol] 1.00 10*3/uL Normal 0.10-1.20 [facility] Comment on above: Performed By: #### C DP #### [address] [address] [employer] Helper: Juan Perera MD Monocytes/100 WBC (Bld) 13 % High 3-12 [facility] Comment on above: Performed By: #### C DP #### [address] [address] Ship[employer] Helper: Juan Perera MD Neutrophil (Seg) 63 % Normal 36-65 [facility] Comment on above: Performed By: #### C DP #### [address] [address] [employer] Helper: Juan Perera MD NRBC Automated 0.0 per 100 WBC Normal 0.0 [facility] Comment on above: Performed By: #### C DP #### [address] [address] Ship[employer] Helper: Juan Perera MD Platelet mean volume (Bld) [Entitic vol] 9.1 fL Normal 8.1-13.5 [facility] Comment on above: Performed By: #### C DP #### [address] [address] [employer] Helper: Juan Perera MD Platelets (Bld) [#/Vol] 184 10*3/uL Normal 138-453 [facility] Comment on above: Performed By: #### C DP #### [address] [address] Ship[employer] Helper: Juan Perera MD RBC (Bld) [#/Vol] 3.58 10*6/uL Low 3.95-5.11 [facility] Comment on above: Performed By: #### C DP #### [address] [address] Ship[employer] Helper: Juan Perera MD RBC morphology finding Nom (Bld) ANISOCYTOSIS PRESENT Normal [facility] Comment on above: Performed By: #### C DP #### [address] [address] [employer] Helper: Juan Perera MD WBC (Bld) [#/Vol] 7.5 10*3/uL Normal 3.5-11.3 [facility] Comment on above: Performed By: #### C DP #### [address] [address] Ship[employer] Helper: Juan Perera MD Auto Diff Performed NOT REPORTED Normal [facility] Comment on above: Performed By: #### C DP #### [address] [address] Ship[employer] Helper: Juan Perera MD Platelets (Bld) [#/Vol] NOT REPORTED Normal [facility] Comment on above: Performed By: #### C DP #### [address] [address] Ship[employer] Helper: Juan Perera MD WBC Morphology NOT REPORTED Normal [facility] Comment on above: Performed By: #### C DP #### [address] [address] Ship[employer] Helper: Juan Perera MD CBC Auto Differentialon Basophils (Bld) [#/Vol] 0.04 10*3/uL [place] Basophils/100 WBC (Bld) 1 % 0 - 2 % [place] Differential Type NOT REPORTED [place] Eosinophils (Bld) [#/Vol] 0.19 10*3/uL [place] Eosinophils/100 WBC (Bld) 2 % 1 - 4 % [place] Erythrocyte distribution width (RBC) [Ratio] 15.5 % High 11.8 - 14.4 % [place] Hematocrit (Bld) [Volume fraction] 37.6 % 36.3 - 47.1 % [place] Hemoglobin (Bld) [Mass/Vol] 11.4 g/dL Low 11.9 - 15.1 g/dL [place] Immature granulocytes (Bld) [#/Vol] 10*3/uL [place] Immature granulocytes (Bld) [#/Vol] 0 % 0 [place] Interpretation and review of laboratory results Abnormal [place] Lymphocytes (Bld) [#/Vol] 1.70 10*3/uL [place] Lymphocytes/100 WBC (Bld) 22 % Low 24 - 43 % [place] MCH (RBC) [Entitic mass] 27.8 pg 25.2 - 33.5 pg [place] MCHC (RBC) [Mass/Vol] 30.3 g/dL 28.4 - 34.8 g/dL [place] MCV (RBC) [Entitic vol] 91.7 fL 82.6 - 102.9 fL [place] Monocytes (Bld) [#/Vol] 0.92 10*3/uL [place] Monocytes/100 WBC (Bld) 12 % 3 - 12 % [place] Platelet mean volume (Bld) [Entitic vol] 9.4 fL 8.1 - 13.5 fL [place] Platelets (Bld) [#/Vol] NOT REPORTED [place] Platelets (Bld) [#/Vol] 199 10*3/uL [place] RBC (Bld) [#/Vol] 4.10 10*6/uL 3.95 - 5.11 m/uL [place] RBC morphology finding Nom (Bld) ANISOCYTOSIS PRESENT [place] Segmented neutrophils/100 WBC (Bld) 63 % 36 - 65 % [place] Segs Absolute 4.97 [place] WBC (Bld) [#/Vol] 0.0 10*3/uL 0.0 per 100 WBC [place] WBC (Bld) [#/Vol] 7.8 10*3/uL [place] WBC Morphology NOT REPORTED [place] CBC with Diffon 10-07-2019 Abs. Basophil 0.04 k/uL Normal 0.00-0.20 [facility] Comment on above: Performed By: #### C DP, CP #### [address] [address] [employer] Helper: Juan Perera MD Abs.Imm.Granulocyte <0.03 Normal 0.00-0.30 [facility] Comment on above: Performed By: #### C DP, CP #### [address] [address] Ship[employer] Helper: Juan Perera MD Abs.Neutrophil (Seg) 4.97 k/uL Normal 1.50-8.10 [facility] Comment on above: Performed By: #### C DP, CP #### [address] [address] Ship[employer] Helper: Juan Perera MD Basophils/100 WBC (Bld) 1 % Normal 0-2 [facility] Comment on above: Performed By: #### C DP, CP #### [place] [address] Ship[employer] Helper: Juan Perera MD Eosinophils (Bld) [#/Vol] 0.19 10*3/uL Normal 0.00-0.44 [facility] Comment on above: Performed By: #### C DP, CP #### [address] [address] Ship[employer] Helper: Juan Perera MD Eosinophils/100 WBC (Bld) 2 % Normal 1-4 [facility] Comment on above: Performed By: #### C DP, CP #### [address] [address] Ship[employer] Helper: Juan Perera MD Erythrocyte distribution width (RBC) [Ratio] 15.5 % High 11.8-14.4 [facility] Comment on above: Performed By: #### C DP, CP #### [address] [address] Shipwright Helper: Juan Perera MD Hematocrit (Bld) [Volume fraction] 37.6 % Normal 36.3-47.1 [facility] Comment on above: Performed By: #### C DP, CP #### [address] [address] Ship[employer] Helper: Juan Perera MD Hemoglobin (Bld) [Mass/Vol] 11.4 g/dL Low 11.9-15.1 [facility] Comment on above: Performed By: #### C DP, CP #### [address] [address] Ship[employer] Helper: Juan Perera MD Immature granulocytes (Bld) [#/Vol] 0 % Normal 0 [facility] Comment on above: Performed By: #### C DP, CP #### [address] [address] Ship[employer] Helper: Juan Perera MD Lymphocytes (Bld) [#/Vol] 1.70 10*3/uL Normal 1.10-3.70 [facility] Comment on above: Performed By: #### C DP, CP #### [address] [address] Ship[employer] Helper: Juan Perera MD Lymphocytes/100 WBC (Bld) 22 % Low 24-43 [facility] Comment on above: Performed By: #### C DP, CP #### [address] [address] Ship[employer] Helper: Juan Perera MD MCH (RBC) [Entitic mass] 27.8 pg Normal 25.2-33.5 [facility] Comment on above: Performed By: #### C DP, CP #### [address] [address] Ship[employer] Helper: Juan Perera MD MCHC (RBC) [Mass/Vol] 30.3 g/dL Normal 28.4-34.8 [facility] Comment on above: Performed By: #### C DP, CP #### [address] [address] Ship[employer] Helper: Juan Perera MD MCV (RBC) [Entitic vol] 91.7 fL Normal 82.6-102.9 [facility] Comment on above: Performed By: #### C DP, CP #### [address] [address] Ship[employer] Helper: Juan Perera MD Monocytes (Bld) [#/Vol] 0.92 10*3/uL Normal 0.10-1.20 [facility] Comment on above: Performed By: #### C DP, CP #### [address] [address] Shipwright Helper: Juan Perera MD Monocytes/100 WBC (Bld) 12 % Normal 3-12 [facility] Comment on above: Performed By: #### C DP, CP #### [address] [address] Ship[employer] Helper: Juan Perera MD Neutrophil (Seg) 63 % Normal 36-65 [facility] Comment on above: Performed By: #### C DP, CP #### [address] [address] Ship[employer] Helper: Juan Perera MD NRBC Automated 0.0 per 100 WBC Normal 0.0 [facility] Comment on above: Performed By: #### C DP, CP #### [address] [address] Ship[employer] Helper: Juan Perera MD Platelet mean volume (Bld) [Entitic vol] 9.4 fL Normal 8.1-13.5 [facility] Comment on above: Performed By: #### C DP, CP #### [address] [address] Ship[employer] Helper: Juan Perera MD Platelets (Bld) [#/Vol] 199 10*3/uL Normal 138-453 [facility] Comment on above: Performed By: #### C DP, CP #### [address] [address] Ship[employer] Helper: Juan Perera MD RBC (Bld) [#/Vol] 4.10 10*6/uL Normal 3.95-5.11 [facility] Comment on above: Performed By: #### C DP, CP #### [address] [address] Ship[employer] Helper: Juan Perera MD RBC morphology finding Nom (Bld) ANISOCYTOSIS PRESENT Normal [facility] Comment on above: Performed By: #### C DP, CP #### [address] [address] Ship[employer] Helper: Juan Perera MD WBC (Bld) [#/Vol] 7.8 10*3/uL Normal 3.5-11.3 [facility] Comment on above: Performed By: #### C DP, CP #### [address] [address] Ship[employer] Helper: Juan Perera MD Auto Diff Performed NOT REPORTED Normal [facility] Comment on above: Performed By: #### C DP, CP #### [address] [address] Ship[employer] Helper: Juan Perera MD Platelets (Bld) [#/Vol] NOT REPORTED Normal [facility] Comment on above: Performed By: #### C DP, CP #### [address] [place] [address] Shipwright Helper: Juan Perera MD WBC Morphology NOT REPORTED Normal [facility] Comment on above: Performed By: #### C DP, CP #### [address] [address] Ship[employer] Helper: Juan Perera MD Comp Metabolic Profon 2018 (cont.) Normal [facility] Comment on above: Result Comment: Aver age GFR for 70 or more years old: 75 mL/min/1.73sq m Chronic Kidney Disease: <60 mL/min/1.73sq m Kidney failure: <15 mL/min/1.73sq m eGFR calculated using average adult body mass. Additional eGFR calculator available at: http://www.[employer]book[employer].com/multiple_crcl_2012.htm Performed By: #### C DP, CP #### [address] [address] Ship[employer] Helper: Juan Perera MD Albumin [Mass/Vol] 2.7 g/dL Low 3.5-5.2 [facility] Comment on above: Performed By: #### C DP, CP #### [address] [address] Ship[employer] Helper: Juan Perera MD Albumin/Globulin [Mass ratio] 0.8 {ratio} Low 1.0-2.5 [facility] Comment on above: Performed By: #### C DP, CP #### [facility] [address] [place] [address] Ship[employer] Helper: Juan Perera MD Alkaline Phos 65 U/L Normal 35-104 [facility] Comment on above: Performed By: #### C DP, CP #### [facility] [address] [place] [address] Ship[employer] Helper: Juan Perera MD ALT [Catalytic activity/Vol] 8 U/L Normal 5-33 [facility] Comment on above: Performed By: #### C DP, CP #### [address] [address] Ship[employer] Helper: Juan Perera MD Anion gap [Moles/Vol] 12 mmol/L Normal 9-17 [facility] Comment on above: Performed By: #### C DP, CP #### [address] [address] Ship[employer] Helper: Juan Perera MD AST [Catalytic activity/Vol] 13 U/L Normal <32 [facility] Comment on above: Performed By: #### C DP, CP #### [address] [address] Ship[employer] Helper: Juan Perera MD Bilirubin Ql (U) 0.41 mg/dL Normal 0.3-1.2 [facility] Comment on above: Performed By: #### C DP, CP #### [address] [address] Ship[employer] Helper: Juan Perera MD Calcium [Mass/Vol] 8.3 mg/dL Low 8.6-10.4 [facility] Comment on above: Performed By: #### C DP, CP #### [address] [address] Ship[employer] Helper: Juan Perera MD Chloride [Moles/Vol] 108 mmol/L High 98-107 [facility] Comment on above: Performed By: #### C DP, CP #### [address] [address] Ship[employer] Helper: Juan Perera MD CO2 [Moles/Vol] 22 mmol/L Normal 20-31 [facility] Comment on above: Performed By: #### C DP, CP #### [address] [address] Ship[employer] Helper: Juan Perera MD Creatinine [Mass/Vol] 0.72 mg/dL Normal 0.50-0.90 [facility] Comment on above: Performed By: #### C DP, CP #### [facility] [address] [place] [address] Ship[employer] Helper: Juan Perera MD GFR, Amer >60 Normal >60 [facility] Comment on above: Performed By: #### C DP, CP #### [facility] [address] [place] [address] Ship[employer] Helper: Juan Perera MD GFR,non Amer >60 Normal >60 [facility] Comment on above: Performed By: #### C DP, CP #### [address] [address] Shipwright Helper: Juan Perera MD Glucose [Mass/Vol] 78 mg/dL Normal 70-99 [facility] Comment on above: Performed By: #### C DP, CP #### [address] [address] Shipwright Helper: Juan Perera MD Potassium [Moles/Vol] 3.9 mmol/L Normal 3.7-5.3 [facility] Comment on above: Performed By: #### C DP, CP #### [address] [address] Shipwright Helper: Juan Perera MD Protein [Mass/Vol] 6.2 g/dL Low 6.4-8.3 [facility] Comment on above: Performed By: #### C DP, CP #### [facility] [address] [place] [address] Shipwright Helper: Juan Perera MD Sodium [Moles/Vol] 142 mmol/L Normal 135-144 [facility] Comment on above: Performed By: #### C DP, CP #### [facility] [address] [place] [address] Shipwright Helper: Juan Perera MD Urea nitrogen [Mass/Vol] 11 mg/dL Normal 8- [facility] Comment on above: Performed By: #### C DP, CP #### [facility] [address] [place] [address] Shipwright Helper: Juan Perera MD BUN/CRE Ratio NOT REPORTED Normal 07-17 [facility] Comment on above: Performed By: #### C DP, CP #### [facility] [address] [place] [address] Shipwright Helper: Juan Perera MD Staging: NOT REPORTED Normal [facility] Comment on above: Performed By: #### C DP, CP #### [facility] [address] [place], [place] [id number] Shipwright Helper: Juan Perera MD Comprehensive Metabolic [facility] 08-03-2019 Albumin [Mass/Vol] 2.7 g/dL Low 3.5 - 5.2 g/dL [place] Albumin/Globulin [Mass ratio] 0.8 {ratio} Low [place] ALP [Catalytic activity/Vol] 65 U/L 35 - 104 U/L [place] ALT [Catalytic activity/Vol] 8 U/L 5 - 33 U/L [place] Anion gap [Moles/Vol] 12 mmol/L 9 - 17 mmol/L [place] AST [Catalytic activity/Vol] 13 U/L <32 [place] Bilirubin Ql (U) 0.41 mg/dL 0.3 - 1.2 mg/dL [place] Bun/Cre Ratio NOT REPORTED [place] Calcium [Mass/Vol] 8.3 mg/dL Low 8.6 - 10. 4 mg/dL [place] Chloride [Moles/Vol] 108 mmol/L High 98 - 10 7 mmol/L [place] CO2 [Moles/Vol] 22 mmol/L 20 - 31 mmol/L [place] Creatinine [Mass/Vol] 0.72 mg/dL 0.5 - 0.9 mg/dL [place] GFR >60 >60 mL/min [place] GFR Non- >60 >60 mL/min [place] GFR/1.73 sq M predicted among non-blacks MDRD (S/P/Bld) [Vol rate/Area] NOT REPORTED [place] GFR/1.73 sq M predicted among non-blacks MDRD (S/P/Bld) [Vol rate/Area] [place] Comment on above: Average GFR for 70 o r more years old: 75 mL/min/1.73sq m Chronic Kidney Disease: <60 mL/min/1.73sq m Kidney failure: <15 mL/min/1.73sq m eGFR calculated using average adult body mass. Additional eGFR calculator available at: http://www.[employer].com/multiple_crcl_2012.htm Glucose [Mass/Vol] 78 mg/dL 70 - 99 mg/dL [place] Interpretation and review of laboratory results Abnormal [place] Potassium [Moles/Vol] 3.9 mmol/L 3.7 - 5.3 mmol/L [place] Protein [Mass/Vol] 6.2 g/dL Low 6.4 - 8.3 g/dL [place] Sodium [Moles/Vol] 142 mmol/L 135 - 144 mmol/L [place] Urea nitrogen [Mass/Vol] 11 mg/dL 8 - 23 mg/dL [place] XR ABDOMEN (KUB) (SINGLE AP VIEW)on [...] Martin Hope MD 08/03/19 Final result Normal [facility] Nonspecific bowel ga s pattern. [place] Robert, Mhpn Incoming R adiant Results From [employer] - 08/03/2019 9:28 AM EDT EXAMINATION: ONE SUPINE XRAY VIEW(S) OF THE ABDOMEN 08/03/2019 9:06 am COMPARISON: 08/02/2019 HISTORY: ORDERING SYSTEM PROVIDED HISTORY: SBO TECHNOLOGIST PROVIDED HISTORY: SBO Reason for Exam: supine FINDINGS: Nonspecific bowel gas pattern. No pathologic bowel dilatation. Gas throughout the colon. Rectal gas. Enteric tube within the stomach. No organomegaly. No suspicious calcifications. IMPRESSION: Nonspecific bowel gas pattern. [place] EXAMINATION: ONE SUP INE XRAY VIEW(S) OF THE ABDOMEN 08/03/2019 9:06 am COMPARISON: 08/02/2019 HISTORY: ORDERING SYSTEM PROVIDED HISTORY: SBO TECHNOLOGIST PROVIDED HISTORY: SBO Reason for Exam: supine FINDINGS: Nonspecific bowel gas pattern. No pathologic bowel dilatation. Gas throughout the colon. Rectal gas. Enteric tube within the stomach. No organomegaly. No suspicious calcifications. [place] CBC Auto Differentialon 10-0 Basophils (Bld) [#/Vol] 0.03 10*3/uL [place] Basophils/100 WBC (Bld) 0 % 0 - 2 % [place] Differential Type NOT REPORTED [place] Eosinophils (Bld) [#/Vol] 0.17 10*3/uL [place] Eosinophils/100 WBC (Bld) 2 % 1 - 4 % [place] Erythrocyte distribution width (RBC) [Ratio] 15.6 % High 11.8 - 14.4 % [place] Hematocrit (Bld) [Volume fraction] 36.3 % 36.3 - 47.1 % [place] Hemoglobin (Bld) [Mass/Vol] 11.7 g/dL Low 11.9 - 15.1 g/dL [place] Immature granulocytes (Bld) [#/Vol] 0 % 0 [place] Immature granulocytes (Bld) [#/Vol] 0.03 10*3/uL [place] Interpretation and review of laboratory results Abnormal [place] Lymphocytes (Bld) [#/Vol] 1.85 10*3/uL [place] Lymphocytes/100 WBC (Bld) 20 % Low 24 - 43 % [place] MCH (RBC) [Entitic mass] 27.9 pg 25.2 - 33.5 pg [place] MCHC (RBC) [Mass/Vol] 32.2 g/dL 28.4 - 34.8 g/dL [place] MCV (RBC) [Entitic vol] 86.6 fL 82.6 - 102.9 fL [place] Monocytes (Bld) [#/Vol] 1.08 10*3/uL [place] Monocytes/100 WBC (Bld) 12 % 3 - 12 % [place] Platelet mean volume (Bld) [Entitic vol] 9.3 fL 8.1 - 13.5 fL [place] Platelets (Bld) [#/Vol] 215 10*3/uL [place] Platelets (Bld) [#/Vol] NOT REPORTED [place] RBC (Bld) [#/Vol] 4.19 10*6/uL 3.95 - 5.11 m/uL [place] RBC morphology finding Nom (Bld) ANISOCYTOSIS PRESENT [place] Segmented neutrophils/100 WBC (Bld) 66 % High 36 - 65 % [place] Segs Absolute 6.12 [place] WBC (Bld) [#/Vol] 9.3 10*3/uL [place] WBC (Bld) [#/Vol] 0.0 10*3/uL 0.0 per 100 WBC [place] WBC Morphology NOT REPORTED [place] CBC with Diffon 08-02-2019 Abs. Basophil 0.03 k/uL Normal 0.00-0.20 [facility] Comment on above: Performed By: #### L ACWB, CDP, REJEC #### [address] [address] Shipwright Helper: Juan Perera MD Abs.Imm.Granulocyte 0.03 k/uL Normal 0.00-0.30 [facility] Comment on above: Performed By: #### L ACWB CDP, REJEC #### [address] [address] Ship[employer] Helper: Juan Perera MD Abs.Neutrophil (Seg) 6.12 k/uL Normal 1.50-8.10 [facility] Comment on above: Performed By: #### L ACABDIRAHMAN CDP, REJEC #### [address] [address] Shipwright Helper: Juan Perera MD Basophils/100 WBC (Bld) 0 % Normal 0-2 [facility] Comment on above: Performed By: #### L ACWB CDP, REJEC #### [address] [address] Ship[employer] Helper: Juan Perera MD Eosinophils (Bld) [#/Vol] 0.17 10*3/uL Normal 0.00-0.44 [facility] Comment on above: Performed By: #### L ACWSandi CDP, REJEC #### [address] [address] Ship[employer] Helper: Juan Perera MD Eosinophils/100 WBC (Bld) 2 % Normal 1-4 [facility] Comment on above: Performed By: #### L ACWSandi CDP, REJEC #### [facility] [address] [place] [address] Ship[employer] Helper: Juan Perera MD Immature granulocytes (Bld) [#/Vol] 0 % Normal 0 [facility] Comment on above: Performed By: #### L ACWB, CDP, REJEC #### [facility] [address] [place] [address] Ship[employer] Helper: Juan Perera MD Lymphocytes (Bld) [#/Vol] 1.85 10*3/uL Normal 1.10-3.70 [facility] Comment on above: Performed By: #### L ACWB, CDP, REJEC #### [address] [address] Shipwright Helper: Juan Perera MD Lymphocytes/100 WBC (Bld) 20 % Low 24-43 [facility] Comment on above: Performed By: #### L ACWB, CDP, REJEC #### [address] [address] Shipwright Helper: Juan Perera MD Monocytes (Bld) [#/Vol] 1.08 10*3/uL Normal 0.10-1.20 [facility] Comment on above: Performed By: #### L ACWB, CDP, REJEC #### [address] [address] Shipwright Helper: Juan Perera MD Monocytes/100 WBC (Bld) 12 % Normal 3-12 [facility] Comment on above: Performed By: #### L ACWB, CDP, REJEC #### [address] [address] Shipwright Helper: Juan Perera MD Neutrophil (Seg) 66 % High 36-65 [facility] Comment on above: Performed By: #### L ACWB, CDP, REJEC #### [address] [address] Shipwright Helper: Juan Perera MD RBC morphology finding Nom (Bld) ANISOCYTOSIS PRESENT Normal [facility] Comment on above: Performed By: #### L ACWB, CDP, REJEC #### [facility] [address] [place] [address] Shipwright Helper: Juan Perera MD Erythrocyte distribution width (RBC) [Ratio] 15.6 % High 11.8-14.4 [facility] Comment on above: Performed By: #### L ARAMIS HO, REJEC #### [facility] [address] [place] [address] Shipwright Helper: Juan Perera MD Hematocrit (Bld) [Volume fraction] 36.3 % Normal 36.3-47.1 [facility] Comment on above: Performed By: #### L ARAMIS HO, REJEC #### [facility] [address] [place] [address] Shipwright Helper: Juan Perera MD Hemoglobin (Bld) [Mass/Vol] 11.7 g/dL Low 11.9-15.1 [facility] Comment on above: Performed By: #### ARAMIS SORIANO, REJEC #### [facility] [address] [place] [address] Shipwright Helper: Juan Perera MD MCH (RBC) [Entitic mass] 27.9 pg Normal 25.2-33.5 [facility] Comment on above: Performed By: #### ARAMIS SORIANO, REJEC #### [facility] [address] [place] [address] Shipwright Helper: Juan Perera MD MCHC (RBC) [Mass/Vol] 32.2 g/dL Normal 28.4-34.8 [facility] [place] [facility] Comment on above: Performed By: #### L ARAMIS HO, REJEC #### [facility] [address] [place] [address] Shipwright Helper: Juan Perera MD MCV (RBC) [Entitic vol] 86.6 fL Normal 82.6-102.9 [facility] Comment on above: Performed By: #### L ARAMIS HO, REJEC #### [employer] [facility] [address] [place] [address] Shipwright Helper: Juan Perera MD NRBC Automated 0.0 per 100 WBC Normal 0.0 [facility] Comment on above: Performed By: #### L ACWARAMIS Junior, REJEC #### [facility] [address] [place] [address] Shipwright Helper: Juan Perera MD Platelet mean volume (Bld) [Entitic vol] 9.3 fL Normal 8.1-13.5 [facility] Comment on above: Performed By: #### L ARAMIS HO, REJEC #### [facility] [address] [place] [address] Shipwright Helper: Juan Perera MD Platelets (Bld) [#/Vol] 215 10*3/uL Normal 138-453 [facility] Comment on above: Performed By: #### L ARAMIS HO, REJEC #### [facility] [address] [place] [address] Ship[employer] Helper: Juan Perera MD RBC (Bld) [#/Vol] 4.19 10*6/uL Normal 3.95-5.11 [facility] Comment on above: Performed By: #### L ARAMIS HO, REJEC #### [facility] [address] [place] [address] Shipwright Helper: Juan Perera MD WBC (Bld) [#/Vol] 9.3 10*3/uL Normal 3.5-11.3 [facility] Comment on above: Performed By: #### L ACWARAMIS Junior, REJEC #### [facility] [address] [place] [address] Shipwright Helper: Juan Perera MD Auto Diff Performed NOT REPORTED Normal [facility] [place] [facility] Comment on above: Performed By: #### L ACARAMIS GARY, REJEC #### [employer] [facility] [place] [address] Shipwright Helper: Juan Perera MD Platelets (Bld) [#/Vol] NOT REPORTED Normal [facility] Comment on above: Performed By: #### L ACWBARAMIS, REJEC #### [facility] [address] [place] [address] Ship[employer] Helper: Juan Perera MD WBC Morphology NOT REPORTED Normal [facility] Comment on above: Performed By: #### L ACWARAMIS Junior, REJEC #### [address] [address] Shipwright Helper: Juan Perera MD Comp Metabolic Profon 2018 (cont.) Normal [facility] Comment on above: Result Comment: Aver age GFR for 70 or more years old: 75 mL/min/1.73sq m Chronic Kidney Disease: <60 mL/min/1.73sq m Kidney failure: <15 mL/min/1.73sq m eGFR calculated using average adult body mass. Additional eGFR calculator available at: http://www.CloudTran.Authenticlick/multiple_crcl_2012.htm Performed By: #### C P #### [address] [address] Ship[employer] Helper: Juan Perera MD Albumin [Mass/Vol] 3.1 g/dL Low 3.5-5.2 [facility] Comment on above: Performed By: #### C P #### [address] [address] Ship[employer] Helper: Juan Perera MD Albumin/Globulin [Mass ratio] 0.9 {ratio} Low 1.0-2.5 [facility] Comment on above: Performed By: #### C P #### [address] [address] Ship[employer] Helper: Juan Perera MD Alkaline Phos 68 U/L Normal 35-104 [facility] Comment on above: Performed By: #### C P #### [address] [address] Shipwright Helper: Juan Perera MD ALT [Catalytic activity/Vol] 8 U/L Normal 5-33 [facility] Comment on above: Performed By: #### C P #### [address] [address] Shipwright Helper: Juan Perera MD Anion gap [Moles/Vol] 9 mmol/L Normal 9-17 [facility] [place] [facility] Comment on above: Performed By: #### C P #### [address] [address] Ship[employer] Helper: Juan Perera MD AST [Catalytic activity/Vol] 11 U/L Normal <32 [facility] Comment on above: Performed By: #### C P #### [address] [address] Ship[employer] Helper: Juan Perera MD Bilirubin Ql (U) 0.39 mg/dL Normal 0.3-1.2 [facility] Comment on above: Performed By: #### C P #### [address] [address] Shipwright Helper: Juan Perera MD Calcium [Mass/Vol] 8.6 mg/dL Normal 8.6-10.4 [facility] Comment on above: Performed By: #### C P #### [address] [address] Shipwright Helper: Juan Perera MD Chloride [Moles/Vol] 106 mmol/L Normal 98-107 [facility] Comment on above: Performed By: #### C P #### [address] [address] Shipwright Helper: Juan Perera MD CO2 [Moles/Vol] 25 mmol/L Normal 20-31 [facility] Comment on above: Performed By: #### C P #### [address] [address] Shipwright Helper: Juan Perera MD Creatinine [Mass/Vol] 0.68 mg/dL Normal 0.50-0.90 [facility] [place] [facility] Comment on above: Performed By: #### C P #### [address] [address] Ship[employer] Helper: Juan Perera MD GFR, Amer >60 Normal >60 [facility] Comment on above: Performed By: #### C P #### [address] [address] Shipwright Helper: Juan Perera MD GFR,non Amer >60 Normal >60 [facility] Comment on above: Performed By: #### C P #### [address] [address] Shipwright Helper: Juan Perera MD Glucose [Mass/Vol] 108 mg/dL High 70-99 [facility] Comment on above: Performed By: #### C P #### [address] [address] Shipwright Helper: Juan Perera MD Potassium [Moles/Vol] 3.8 mmol/L Normal 3.7-5.3 [facility] [place] [facility] Comment on above: Performed By: #### C P #### [address] [address] Shipwright Helper: Juan Perera MD Protein [Mass/Vol] 6.4 g/dL Normal 6.4-8.3 [facility] Comment on above: Performed By: #### C P #### [address] [address] Shipwright Helper: Juan Perera MD Sodium [Moles/Vol] 140 mmol/L Normal 135-144 [facility] Comment on above: Performed By: #### C P #### [facility] [address] [place] [address] Shipwright Helper: Juan Perera MD Urea nitrogen [Mass/Vol] 14 mg/dL Normal 8- [facility] Comment on above: Performed By: #### C P #### [facility] [address] [place] [address] Ship[employer] Helper: Juan Perera MD BUN/CRE Ratio NOT REPORTED Normal - [facility] Comment on above: Performed By: #### C P #### [facility] [address] [place] [address] Shipwright Helper: Juan Perera MD Staging: NOT REPORTED Normal [facility] Comment on above: Performed By: #### C P #### [facility] [address] [place] [address] Shipwright Helper: Juan Perera MD Comprehensive Metabolic [facility] 08-02-2019 Albumin [Mass/Vol] 3.1 g/dL Low 3.5 - 5.2 g/dL [place] Albumin/Globulin [Mass ratio] 0.9 {ratio} Low [place] ALP [Catalytic activity/Vol] 68 U/L 35 - 104 U/L [place] ALT [Catalytic activity/Vol] 8 U/L 5 - 33 U/L [place] Anion gap [Moles/Vol] 9 mmol/L 9 - 17 mmol/L [place] AST [Catalytic activity/Vol] 11 U/L <32 [place] Bilirubin Ql (U) 0.39 mg/dL 0.3 - 1.2 mg/dL [place] Bun/Cre Ratio NOT REPORTED [place] Calcium [Mass/Vol] 8.6 mg/dL 8.6 - 10. 4 mg/dL [place] Chloride [Moles/Vol] 106 mmol/L 98 - 10 7 mmol/L [place] CO2 [Moles/Vol] 25 mmol/L 20 - 31 mmol/L [place] Creatinine [Mass/Vol] 0.68 mg/dL 0.5 - 0.9 mg/dL [place] GFR >60 >60 mL/min [place] GFR Non- >60 >60 mL/min [place] GFR/1.73 sq M predicted among non-blacks MDRD (S/P/Bld) [Vol rate/Area] [place] Comment on above: Average GFR for 70 o r more years old: 75 mL/min/1.73sq m Chronic Kidney Disease: <60 mL/min/1.73sq m Kidney failure: <15 mL/min/1.73sq m eGFR calculated using average adult body mass. Additional eGFR calculator available at: http://www.Meetingsbooker.com/multiple_crcl_2012.htm GFR/1.73 sq M predicted among non-blacks MDRD (S/P/Bld) [Vol rate/Area] NOT REPORTED [place] Glucose [Mass/Vol] 108 mg/dL High 70 - 99 mg/dL [place] Interpretation and review of laboratory results Abnormal [place] Potassium [Moles/Vol] 3.8 mmol/L 3.7 - 5.3 mmol/L [place] Protein [Mass/Vol] 6.4 g/dL 6.4 - 8.3 g/dL [place] Sodium [Moles/Vol] 140 mmol/L 135 - 144 mmol/L [place] Urea nitrogen [Mass/Vol] 14 mg/dL 8 - 23 mg/dL [place] LACTIC ACID, WHOLE BLOODon 1 Lactic Acid, Whole Blood 1.0 mmol/L 0.7 - 2.1 mmol/L [place] Lactic Acid,Whole Blon 08-02 Lactic Acid,Whole Bl 1.0 mmol/L Normal 0.7-2.1 [facility] Comment on above: Performed By: #### L ACWB, CDP, REJEC #### [facility] [address] [place] [address] Shipwright Helper: Juan Perera MD SPECIMEN REJECTIONon 019 Ordered Test CP [place] Reason for Rejection Unable to perform t esting: Specimen hemolyzed. [place] Specimen source Nom (Unsp spec) GROCERY CLERK MARKING [place] - NOT REPORTED [place] Specimen Rejectionon 019 Reason for rejection Unable to perform t esting: Specimen hemolyzed. [facility] Comment on above: Performed By: #### L ACWB CDP, REJEC #### [facility] [address] [place] [address] Shipwright Helper: Juan Perera MD Source of sample GROCERY CLERK MARKING [facility] Comment on above: Performed By: #### L ACWB, CDP, REJEC #### [facility] [address] [place] [address] Shipwright Helper: Juan Perera MD Test ordered CP [facility] Comment on above: Performed By: #### L ACWB CDP, REJEC #### [facility] [address] [place] [address] Shipwright Helper: Juan Perera MD ----- NOT REPORTED [facility] Comment on above: Performed By: #### L ACWSandi CDP, REJEC #### [facility] [address] [place] [address] Shipwright Helper: Juan Perera MD XR ABDOMEN FOR [...] Eduardo Horner MD 08/02/19 Final result Normal [facility] Robert, Mhpn Incoming R adiant Results From [facility] - 08/02/2019 4:59 AM EDT EXAMINATION: ONE [...] The tube should be advanced 4 cm. [place] EXAMINATION: ONE SUP INE XRAY VIEW(S) [...] system. Very little bowel gas is seen. [place] The tip of the enter ic tube is in the stomach though the proximal side hole is in the esophagus. The tube should be advanced 4 cm. [place] Mammogram Routine Screeni ng Bilat.on 07-02-2018 MS Mammogram Routine Screening Bilat. MAMMOGRAM ROUTINE SCREENING [...] lymph nodes are noted bilaterally.I CAD image seam checker was utilized for this study.IMPRESSION:1. NO [...] reports average 6 to 10%.TARIQ Stoddard #: [id number]: 07/03/2018T: 07/03/2018 Final Dictated by: Chidi Preston MD SDictated DT/TM: 07/03/18 9:47Signed (Electronic Signature): Chidi Preston MD 07/03/18 1:53 pmTechnologist: CMAAssessment: 2-Benign findingRecommendation: Normal interval follow-up [facility] Provider Orderson 06-19-2018 Protein mass conc [id number] [facility] Coding Summaryon 09-03-2017 Coding Summary CODING DATE: 017 [facility] STATUS: Home PAYOR: Medicare ADMIT [...] Waller Revised Date Saved: 06/24/2017 10:08 am [facility] Vital Signs Date Time Vital Sign Value Performing Clinician Facility 10-26-2024 16:51-0500 Body height 152.4 cm Infinisource [email or web address] 10-26-2024 16:51-0500 Body temperature 97.9 [degF] Chano Suncorelong [email or web address] 10-26-2024 16:51-0500 Diastolic blood pressure 59 mm[Hg] Chano Suncorelong DO [email or web address] 10-26-2024 16:51-0500 Heart rate 76 /min Nomiosng DO Work Phone: [facility] [employer] 10-26-2024 16:51-0500 Respiratory rate 18 /min Nomiosng [email or web address] 10-26-2024 16:51-0500 SaO2% (BldA) [Mass fraction] 96 % Nomiosng [email or web address] 10-26-2024 16:51-0500 Systolic blood pressure 114 mm[Hg] [address] Mobile[employer] DO Work Phone: [facility] [employer] 10-20-2024 14:59-0500 Body mass index (BMI) [Ratio] 38.16 kg/m2 [address] [employer] DO [email or web address] 10-20-2024 14:59-0500 Body temperature 97.59 [degF] Chano Furlong DO Work Phone: [facility] [employer] 10-20-2024 14:59-0500 Body weight 88.63 kg Nomiosng DO Work Phone: [facility] 10-20-2024 14:59-0500 Diastolic blood pressure 84 mm[Hg] Chano Furlong DO Work Phone: [facility] 10-20-2024 14:59-0500 Heart rate 84 /min Chano Furlong DO Work Phone: [facility] 10-20-2024 14:59-0500 Respiratory rate 20 /min Chano Furlong DO Work Phone: [facility] 10-20-2024 14:59-0500 SaO2% (BldA) [Mass fraction] 94 % Chano Furlong DO Work Phone: [facility] 10-20-2024 14:59-0500 Systolic blood pressure 132 mm[Hg] Chano Furlong DO Work Phone: [facility] 10-16-2024 15:18-0500 Body mass index (BMI) [Ratio] 38.16 kg/m2 Chano Furlong DO Work Phone: [facility] 10-16-2024 15:18-0500 Body temperature 97.39 [degF] Chano Furlong DO Work Phone: [facility] 10-16-2024 15:18-0500 Body weight 88.63 kg Chano Furlong DO Work Phone: [facility] [employer] [facility] 10-16-2024 15:18-0500 Diastolic blood pressure 83 mm[Hg] Chano Furlong DO Work Phone: [facility] 10-16-2024 15:18-0500 Heart rate 81 /min Chano Furlong DO Work Phone: [facility] 10-16-2024 15:18-0500 Respiratory rate 20 /min Chano Furlong DO Work Phone: [facility] 10-16-2024 15:18-0500 Systolic blood pressure 156 mm[Hg] Chano Furlong DO Work Phone: [facility] 07-23-2024 13:14-0400 Body height 152.4 cm Kalyan Barboza DPM Work Phone: [facility] 07-23-2024 13:14-0400 Body mass index (BMI) [Ratio] 36.52 kg/m2 Kalyan Barboza DPM Work Phone: [facility] 07-23-2024 13:14-0400 Body weight 84.82 kg Kalyan Brown DPM Work Phone: [facility] 07-23-2024 13:14-0400 Diastolic blood pressure 82 mm[Hg] Kalyan Barboza DPM Work Phone: [facility] 07-23-2024 13:14-0400 Heart rate 78 /min Kalyan Barboza DPM Work Phone: [facility] 07-23-2024 13:14-0400 Respiratory rate 18 /min Kalyan Barboza DPM Work Phone: [facility] 07-23-2024 13:14-0400 Systolic blood pressure 130 mm[Hg] Kalyan Barboza DPM Work Phone: [facility] 07-02-2024 13:30-0400 Body height 152.4 cm Kalyan Jabari DPM Work Phone: [facility] 07-02-2024 13:30-0400 Body mass index (BMI) [Ratio] 36.52 kg/m2 Kalyan Brown DPM Work Phone: [facility] 07-02-2024 13:30-0400 Body weight 84.82 kg Kalyan Jabari DPM Work Phone: [facility] 07-02-2024 13:30-0400 Diastolic blood pressure 80 mm[Hg] Kalyan Barboza DPM Work Phone: [facility] 07-02-2024 13:30-0400 Heart rate 83 /min Kalyan Brown DPM Work Phone: [facility] 07-02-2024 13:30-0400 Systolic blood pressure 129 mm[Hg] Kalyan Brown DPM Work Phone: [facility] 06-22-2024 14:43-0400 Body height 152.4 cm Gustavo Salas DO Work Phone: [facility] 06-22-2024 14:43-0400 Body mass index (BMI) [Ratio] 36.91 kg/m2 Gustavo Salas DO Work Phone: [facility] 06-22-2024 14:43-0400 Body weight 85.73 kg Gustavo Salas DO Work Phone: [facility] 06-22-2024 14:43-0400 Diastolic blood pressure 70 mm[Hg] Gustavo Salas DO Work Phone: [facility] 06-22-2024 14:43-0400 Heart rate 97 /min Gustavo Salas DO Work Phone: [facility] 06-22-2024 14:43-0400 SaO2% (BldA) [Mass fraction] 95 % Gustavo Salas DO Work Phone: [facility] 06-22-2024 14:43-0400 Systolic blood pressure 120 mm[Hg] Gustavo Salas DO Work Phone: [facility] 03-17-2024 10:18-0400 Body height 152.4 cm Angela Stoutrker ABSTRACT WRITER-LINE CREWMAN Work Phone: [facility] 03-17-2024 10:18-0400 Body mass index (BMI) [Ratio] 35.15 kg/m2 Angela Zirker ABSTRACT WRITER-LINE CREWMAN Work Phone: [facility] 03-17-2024 10:18-0400 Body temperature 98.2 [degF] Angela Zirker ABSTRACT WRITER-LINE CREWMAN Work Phone: [facility] 03-17-2024 10:18-0400 Body weight 81.65 kg Angela Zirker ABSTRACT WRITER-LINE CREWMAN Work Phone: [facility] Comment on above: per patient 03-17-2024 10:18-0400 Diastolic blood pressure 70 mm[Hg] Angela Belcher ABSTRACT WRITER-LINE CREWMAN Work Phone: [email or web address] 03-17-2024 10:18-0400 Heart rate 71 /min Angela Belcher ABSTRACT WRITER-LINE CREWMAN [email or web address] 03-17-2024 10:18-0400 Respiratory rate 16 /min Angela Belcher ABSTRACT WRITER-LINE CREWMAN [email or web address] 03-17-2024 10:18-0400 SaO2% (BldA) [Mass fraction] 95 % Angela Belcher ABSTRACT WRITER-LINE CREWMAN Work Phone: [facility] [employer] 03-17-2024 10:18-0400 Systolic blood pressure 100 mm[Hg] Angela Belcher ABSTRACT WRITER-LINE CREWMAN Work Phone: [facility] [employer] 02-19-2024 19:31-0400 SaO2% (BldA) [Mass fraction] 95 % APURVA SIERRA [facility] Comment on above: Performed By: #### ELEC #### [facility] ([id number]) [address] [place] [address], [address] [place] [address] 02-17-2024 16:00-0400 Inhaled oxygen flow rate 3.5 L/min DO Gustavo Salas Work Phone: [facility] 02-17-2024 16:00-0400 SaO2% (BldA) [Mass fraction] 90 % DO Gustavo Salas Work Phone: [facility] 02-17-2024 14:02-0400 Body height 152.4 cm DO Gustavo Salas Work Phone: [facility] 02-17-2024 12:32-0400 Diastolic blood pressure 53 mm[Hg] DO Gustavo Salas Work Phone: [facility] 02-17-2024 12:32-0400 Heart rate 96 /min DO Gustavo Salas Work Phone: [facility] 02-17-2024 12:32-0400 Respiratory rate 18 /min DO Gustavo Salas Work Phone: [facility] 02-17-2024 12:32-0400 Systolic blood pressure 116 mm[Hg] DO Gustavo Salas Work Phone: [facility] 02-17-2024 08:00-0400 Body temperature 97.8 [degF] DO Gustavo Salas Work Phone: [facility] 02-17-2024 05:48-0400 Body weight 86.1 kg DO Gustavo Salas Work Phone: [facility] 02-14-2024 16:43-0400 Body height 152.4 cm DO Gustavo Salas Work Phone: [facility] 02-14-2024 16:43-0400 Body temperature 98.3 [degF] DO Gustavo Salas Work Phone: [facility] 02-14-2024 16:43-0400 Body weight 84.9 kg DO Gustavo Salas Work Phone: [facility] 02-14-2024 16:43-0400 Diastolic blood pressure 69 mm[Hg] DO Gustavo Salas Work Phone: [facility] 02-14-2024 16:43-0400 Heart rate 105 /min DO Gustavo Salas Work Phone: [facility] 02-14-2024 16:43-0400 Inhaled oxygen flow rate 4 L/min DO Gustavo Salas Work Phone: [facility] 02-14-2024 16:43-0400 Respiratory rate 20 /min DO Gustavo Salas Work Phone: [facility] 02-14-2024 16:43-0400 SaO2% (BldA) [Mass fraction] 92 % DO Gustavo Salas Work Phone: [facility] 02-14-2024 16:43-0400 Systolic blood pressure 119 mm[Hg] DO Gustavo Salas Work Phone: [facility] 02-10-2024 12:36-0400 Body height 152.4 cm Jenna Engle MD Work Phone: [facility] 02-10-2024 12:36-0400 Body mass index (BMI) [Ratio] 35.15 kg/m2 Jenna Engle MD Work Phone: [facility] 02-10-2024 12:36-0400 Body weight 81.65 kg Jenna Engle MD Work Phone: [facility] 02-10-2024 12:36-0400 Diastolic blood pressure 70 mm[Hg] Jenna Engle MD Work Phone: [facility] 02-10-2024 12:36-0400 Heart rate 96 /min Jenna Engle MD Work Phone: [facility] 02-10-2024 12:36-0400 Systolic blood pressure 120 mm[Hg] Jenna Engle MD Work Phone: [facility] 01-30-2024 13:31-0400 Blood Pressure Location Renae Ponce [facility] 01-30-2024 13:31-0400 Body temperature 98.24 [degF] Renae Orzech [facility] 01-30-2024 13:31-0400 Diastolic blood pressure 82 mm[Hg] Ernae Orzech [facility] 01-30-2024 13:31-0400 Heart rate 84 /min Renae Orjennie [facility] 01-30-2024 13:31-0400 Systolic blood pressure 118 mm[Hg] Renae Kimjennie [facility] 01-27-2024 13:42-0400 Body height 162.[address] 01-27-2024 13:42-0400 Body mass index (BMI) [Ratio] 32.96 kg/m2 [address] 01-27-2024 13:42-0400 Body weight 87.[address] 01-27-2024 13:42-0400 Diastolic blood pressure 78 mm[Hg] [address] 01-27-2024 13:42-0400 Systolic blood pressure 126 mm[Hg] [address] 01-06-2024 11:39-0400 Diastolic blood pressure 72 mm[Hg] Jenna Engle MD Work Phone: [facility] 01-06-2024 11:39-0400 Systolic blood pressure 128 mm[Hg] Jenna Engle MD Work Phone: [facility] 01-06-2024 11:38-0400 Body height 162.6 cm Jenna Engle MD Work Phone: [facility] 01-06-2024 11:38-0400 Body mass index (BMI) [Ratio] 32.96 kg/m2 Jenna Engle MD Work Phone: [facility] 01-06-2024 11:38-0400 Body weight 87.09 kg Jenna Engle MD Work Phone: [facility] 01-06-2024 11:38-0400 Heart rate 62 /min Jenna Engle MD Work Phone: [facility] 12-09-2023 11:08-0500 Body mass index (BMI) [Ratio] 34.18 kg/m2 Gustavo Salas DO Work Phone: [facility] 12-09-2023 11:08-0500 Body temperature 97.5 [degF] Gustavo Salas DO Work Phone: [facility] 12-09-2023 11:08-0500 Body weight 79.38 kg Gustavo Salas DO Work Phone: [facility] 12-09-2023 11:08-0500 Diastolic blood pressure 72 mm[Hg] Gustavo Salas DO Work Phone: [facility] 12-09-2023 11:08-0500 Heart rate 106 /min Gustavo Salas DO Work Phone: [facility] 12-09-2023 11:08-0500 SaO2% (BldA) [Mass fraction] 96 % Gustavo Salas DO Work Phone: [facility] 12-09-2023 11:08-0500 Systolic blood pressure 122 mm[Hg] Gustavo Salas DO Work Phone: [facility] 08-20-2023 16:32-0400 Heart rate 95 /min DO Gustavo Salas Work Phone: [facility] 08-20-2023 16:32-0400 Respiratory rate 20 /min DO Gustavo Salas Work Phone: [facility] 08-20-2023 12:00-0400 Body temperature 98.1 [degF] DO Gustavo Salas Work Phone: [facility] 08-20-2023 12:00-0400 Diastolic blood pressure 90 mm[Hg] DO Gustavo Salas Work Phone: [facility] 08-20-2023 12:00-0400 SaO2% (BldA) [Mass fraction] 95 % DO Gustavo Salas Work Phone: [facility] 08-20-2023 12:00-0400 Systolic blood pressure 125 mm[Hg] DO Gustavo Salas Work Phone: [facility] 08-20-2023 04:47-0400 Body weight 82.7 kg DO Gustavo Maritza Work Phone: [facility] 08-19-2023 13:57-0400 Body height 152.4 cm DO Gustavo Maritza Work Phone: [facility] 08-17-2023 20:08-0400 Diastolic blood pressure 68 mm[Hg] DO Gustavo Maritza Work Phone: [facility] 08-17-2023 20:08-0400 Heart rate 80 /min DO Gustavo Maritza Work Phone: [facility] 08-17-2023 20:08-0400 Respiratory rate 20 /min DO Gustavoed Salas Work Phone: [facility] 08-17-2023 20:08-0400 SaO2% (BldA) [Mass fraction] 95 % DO Gustavo Salas Work Phone: [facility] 08-17-2023 20:08-0400 Systolic blood pressure 132 mm[Hg] DO Gustavo Maritza Work Phone: [facility] 08-17-2023 16:09-0400 Body temperature 97.4 [degF] DO Gustavo Maritza Work Phone: [facility] 08-17-2023 16:07-0400 Body height 152.4 cm DO Gustavo Maritza Work Phone: [facility] 08-17-2023 16:07-0400 Body weight 81 kg DO Gustavo Maritza Work Phone: [facility] 07-14-2023 13:39-0400 Body temperature 97.8 [degF] DO Gustavo Maritza Work Phone: [facility] 07-14-2023 13:39-0400 Diastolic blood pressure 79 mm[Hg] DO Gustavo Maritza Work Phone: [facility] 07-14-2023 13:39-0400 Heart rate 80 /min DO Gustavo Maritza Work Phone: [facility] 07-14-2023 13:39-0400 Respiratory rate 18 /min DO Gustavo Maritza Work Phone: [facility] 07-14-2023 13:39-0400 SaO2% (BldA) [Mass fraction] 94 % DO Gustavo Maritza Work Phone: [facility] 07-14-2023 13:39-0400 Systolic blood pressure 110 mm[Hg] DO Gustavo Maritza Work Phone: [facility] 07-14-2023 06:00-0400 Body weight 90.1 kg DO Gustavo Maritza Work Phone: [facility] 07-11-2023 15:28-0400 Body height 152.4 cm DO Gustavo Maritza Work Phone: [facility] 07-10-2023 13:00-0400 Diastolic blood pressure 59 mm[Hg] DO Gustavo Maritza Work Phone: [facility] 07-10-2023 13:00-0400 Heart rate 72 /min DO Gustavo Maritza Work Phone: [facility] 07-10-2023 13:00-0400 Respiratory rate 18 /min DO Gustavo Maritza Work Phone: [facility] 07-10-2023 13:00-0400 SaO2% (BldA) [Mass fraction] 96 % DO Gustavo Maritza Work Phone: [facility] 07-10-2023 13:00-0400 Systolic blood pressure 107 mm[Hg] DO Gustavo Maritza Work Phone: [facility] 06-17-2023 15:04-0400 Body height 152.4 cm DO Gustavo Maritza Work Phone: [facility] 06-17-2023 15:04-0400 Body temperature 98.7 [degF] DO Gustavo Maritza Work Phone: [facility] 06-17-2023 15:04-0400 Body weight 80.28 kg DO Gustavo Maritza Work Phone: [facility] 06-17-2023 15:04-0400 Diastolic blood pressure 55 mm[Hg] DO Gustavo Maritza Work Phone: [facility] 06-17-2023 15:04-0400 Heart rate 76 /min DO Gustavo Salas Work Phone: [facility] 06-17-2023 15:04-0400 Respiratory rate 19 /min DO Gustavo Salas Work Phone: [facility] 06-17-2023 15:04-0400 SaO2% (BldA) [Mass fraction] 96 % DO Gustavo Salas Work Phone: [facility] 06-17-2023 15:04-0400 Systolic blood pressure 110 mm[Hg] DO Gustavo Salas Work Phone: [facility] 12-31-2022 11:45-0500 Body temperature 97.3 [degF] DO Gustavo Salas Work Phone: [facility] 12-31-2022 11:45-0500 Diastolic blood pressure 72 mm[Hg] DO Gustavo Salas Work Phone: [facility] 12-31-2022 11:45-0500 Heart rate 78 /min DO Gustavo Salas Work Phone: [facility] 12-31-2022 11:45-0500 Inhaled oxygen flow rate 2 L/min DO Gustavo Salas Work Phone: [facility] 12-31-2022 11:45-0500 Respiratory rate 18 /min DO Gustavo Salas Work Phone: [facility] 12-31-2022 11:45-0500 SaO2% (BldA) [Mass fraction] 92 % DO Gustavo Maritza Work Phone: [facility] 12-31-2022 11:45-0500 Systolic blood pressure 114 mm[Hg] DO Gustavo Maritza Work Phone: [facility] 12-31-2022 06:00-0500 Body weight 83.5 kg DO Gustavo Maritza Work Phone: [facility] 12-27-2022 10:00-0500 Body height 152.4 cm DO Gustavo Salas Work Phone: [facility] 12-26-2022 23:00-0500 Diastolic blood pressure 60 mm[Hg] DO Gustavoed Salas Work Phone: [facility] 12-26-2022 23:00-0500 Heart rate 77 /min DO Gustavo Salas Work Phone: [facility] 12-26-2022 23:00-0500 Respiratory rate 18 /min DO Gustavo Salas Work Phone: [facility] 12-26-2022 23:00-0500 SaO2% (BldA) [Mass fraction] 94 % DO Gustavo Salas Work Phone: [facility] 12-26-2022 23:00-0500 Systolic blood pressure 130 mm[Hg] DO Gustavo Maritza Work Phone: [facility] 12-26-2022 18:59-0500 Body height 152.4 cm DO Gustavo Maritza Work Phone: [facility] 12-26-2022 18:59-0500 Body temperature 98.8 [degF] DO Gustavo Maritza Work Phone: [facility] 12-26-2022 18:59-0500 Body weight 84.3 kg DO Gustavo Maritza Work Phone: [facility] 11-22-2022 11:25-0500 Body temperature 97.5 [degF] DO Gustavo Salas Work Phone: [facility] 11-22-2022 11:25-0500 Diastolic blood pressure 68 mm[Hg] DO Gustavo Maritza Work Phone: [facility] 11-22-2022 11:25-0500 Heart rate 72 /min DO Gustavo Maritza Work Phone: [facility] 11-22-2022 11:25-0500 Respiratory rate 22 /min DO Gustavo Maritza Work Phone: [facility] 11-22-2022 11:25-0500 SaO2% (BldA) [Mass fraction] 93 % DO Gustavo Salas Work Phone: [facility] 11-22-2022 11:25-0500 Systolic blood pressure 146 mm[Hg] DO Gustavo Salas Work Phone: [facility] 11-22-2022 10:26-0500 Body height 152.4 cm DO Gustavo Salas Work Phone: [facility] 11-22-2022 10:26-0500 Body weight 87.9 kg DO Gustavo Salas Work Phone: [facility] 05-31-2022 15:12-0400 Diastolic blood pressure 75 mm[Hg] DO Gustavoed Salas Work Phone: [facility] 05-31-2022 15:12-0400 Heart rate 69 /min DO Gustavo Maritza Work Phone: [facility] 05-31-2022 15:12-0400 Respiratory rate 25 /min DO Gustavo Maritza Work Phone: [facility] 05-31-2022 15:12-0400 SaO2% (BldA) [Mass fraction] 98 % DO Gustavo Maritza Work Phone: [facility] 05-31-2022 15:12-0400 Systolic blood pressure 156 mm[Hg] DO Gustavo Salas Work Phone: [facility] 05-31-2022 11:02-0400 Body height 154.94 cm DO Gustavo Salas Work Phone: [facility] 05-31-2022 11:02-0400 Body temperature 97.1 [degF] DO Gustavo Salas Work Phone: [facility] 05-31-2022 11:02-0400 Body weight 86.18 kg DO Gustavo Salas Work Phone: [facility] 08-04-2019 08:30-0400 Body Temperature 97.81 [degF] [facility] [place] [facility] 08:30-0400 BP Diastolic 69 mm[Hg] Hayden Watters [facility] [place] 08-04-2019 08:30-0400 BP Systolic 161 mm[Hg] Hayden Watters [facility] [place] 08-04-2019 08:30-0400 Pulse (Heart Rate) 78 /min [facility] [place] 08-04-2019 08:30-0400 Pulse Oximetry 92 % Hayden Watters [facility] [place] 08-04-2019 08:30-0400 Respiratory Rate 18 /min [facility] [place] 08-02-2019 01:00-0400 BMI (Body Mass Index) 34.44 kg/m2 [facility] [place] 08-02-2019 01:00-0400 Body weight 82.67 kg Hayden Watters [facility] [place] 08-02-2019 01:00-0400 Height 154.9 cm [facility] [place] Encounters Encounter Date Encounter Type Care Provider [...] recurrent major depressive disorder (CMS-HCC); 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; Closed wedge compression fracture of T6 vertebra with routine healing, subsequent encounter Start: 10-22-2024 End: 10-22-2024 Orders Only Chano Presley DO Work Phone: [facility] Start: 10-20-2024 End: 10-22-2024 Continuing Care Chano Presley DO Work Phone: [facility] Comment [...] unspecified fracture morphology, subsequent encounter; 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 Start: 07-02-2024 End: 07-02-2024 ambulatory KALYAN BARBOZA Not Available Start: 07-02-2024 End: 07-02-2024 Office outpatient visit 15 minutes Kalyan Barboza DPM Work Phone: [facility] Comment on above: Heel spur, right (Pr imary Dx); Venous insufficiency; Onychomycosis; Toe pain, left; Toe pain, right; Right Achilles tendinitis Start: 06-22-2024 End: 06-22-2024 ambulatory GUSTAVO SALAS Not Available Start: 06-22-2024 End: 06-22-2024 Office outpatient visit 40 minutes Gustavo Salas DO Work Phone: [facility] Comment on above: Stage 3a chronic kid lamont disease (HCC) (CMS/HCC) (Primary Dx); Interstitial pulmonary disease, unspecified (CMS/HCC); Primary osteoarthritis involving multiple joints; Morbid (severe) obesity due to excess calories (E66.01); 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 (CMS/HCC); Chronic heart failure with preserved ejection fraction (CMS/HCC); Centrilobular emphysema (CMS/HCC); Neural foraminal stenosis of lumbosacral spine; Failed back surgical syndrome; Mixed hyperlipidemia (CMS/HCC); Acute cystitis without hematuria; Anemia due to stage 3a chronic kidney disease (HCC) (CMS/HCC) Start: 06-22-2024 End: 06-22-2024 Ousmane Gutierrez NP Work Phone: [facility] Comment on above: Failed back surgical syndrome; Neural foraminal stenosis of lumbosacral spine Start: 05-22-2024 End: 05-22-2024 ambulatory GUSTAVO SALAS Not Available Start: 05-16-2024 End: 05-16-2024 ambulatory KALYAN BARBOZA Not Available Start: 05-06-2024 End: 05-06-2024 ambulatory GUSTAVO SALAS Not Available Start: 05-06-2024 End: 05-06-2024 ambulatory GUSTAVO SALAS Not Available Start: 05-01-2024 End: 05-01-2024 Orders Only Vibha Rubio LPN [facility] Comment on above: Chronic obstructive pulmonary disease, unspecified COPD type ([facility]-HCC) (Primary Dx) Start: 04-27-2024 End: 04-27-2024 ambulatory [facility] Start: 04-13-2024 End: 04-13-2024 ambulatory [facility] Start: 04-08-2024 End: 04-08-2024 ambulatory [facility] Start: 04-02-2024 End: 04-02-2024 [facility] Start: 03-30-2024 End: 03-30-2024 ambulatory [facility] Start: 03-18-2024 End: 03-18-2024 [facility] Start: 03-17-2024 End: 03-17-2024 Office outpatient visit 25 minutes Angela Belcher [employer] Work Phone: [facility] Comment on above: Hospital discharge f ollow-up (Primary Dx); Chronic respiratory failure with hypoxia, on home O2 therapy ([facility]); Former cigarette smoker; Abnormal CT of the chest; Longstanding persistent atrial fibrillation ([facility]) Start: 03-17-2024 End: 03-17-2024 ambulatory [facility] Start: 03-11-2024 End: 03-11-2024 ambulatory [facility] Start: 03-05-2024 End: 03-05-2024 ambulatory TODD POSEY [facility] Start: 03-04-2024 End: 03-04-2024 ambulatory GUSTAVO SALAS [facility] Start: 03-03-2024 End: 03-03-2024 ambulatory TODD POSEY [facility] Start: 03-02-2024 End: 03-02-2024 ambulatory TODD POSEY [facility] Start: 02-27-2024 End: 02-27-2024 ambulatory TODD POSEY [facility] Start: 02-19-2024 End: 02-26-2024 Emergency department patient visit OVIDIO J [facility] Start: 02-19-2024 End: 02-25-2024 Evaluation and management of inpatient GUSTAVO SALAS [facility] Start: 02-19-2024 End: 02-26-2024 Emergency department patient visit OVIDIO JANE [facility] Start: 02-14-2024 Non-patient / Non-visit DO David Baezman Work Phone: [facility] Work Phone: Start: 02-14-2024 End: 02-17-2024 Evaluation and management of inpatient DO Gustavo Salas Work Phone: [facility] [place] [facility] Work Phone: Start: 02-10-2024 End: 02-10-2024 ambulatory [facility] Start: 02-10-2024 End: 02-10-2024 Office outpatient visit 25 minutes Jenna Engle MD Work Phone: [facility] Comment on above: Shortness of breath; Coronary artery disease involving kashia coronary artery of kashia heart without angina pectoris; History of PTCA; Essential hypertension; Hyperlipidemia, mixed; Obstructive sleep apnea syndrome; BMI 35.0-35.9,adult; Current smoker; Chronic hypoxemic respiratory failure (Multi); Encounter to discuss test results Start: 02-05-2024 End: 02-05-2024 ambulatory GUSTAVOED SALAS Not Available Start: 01-30-2024 End: 01-31-2024 ambulatory Renae X Orzech Facility[facility] Start: 01-30-2024 End: 01-31-2024 ambulatory Renae X Orzech Facility: [place] Start: 01-30-2024 End: 01-30-2024 Lab Drop off Reane X Orzech [facility] Start: 01-30-2024 End: 01-30-2024 Patient encounter procedure Renae Ponce [facility] Start: 01-27-2024 End: 01-27-2024 ambulatory [facility] Start: 01-27-2024 End: 01-27-2024 Subsequent hospital visit by physician Magnolia Garzon Echo/Vasc Room [facility] Comment on above: Shortness of breath Start: 01-13-2024 ambulatory Renae Sesaybeth Facility: [facility] Start: 01-10-2024 End: 01-10-2024 ambulatory GUSTAVO SALAS Not Available Start: 01-06-2024 End: 01-06-2024 Patient encounter procedure DO Gustavo Salas Work Phone: [facility] Work Phone: Start: 01-06-2024 End: 01-06-2024 ambulatory [facility] Start: 01-06-2024 End: 01-06-2024 Office consultation new/estab patient 80 min Jenna Engle MD Work Phone: [facility] Comment on above: Shortness of breath; Coronary artery disease involving kashia coronary artery of kashia heart without angina pectoris; Stage 3b chronic [...] minutes Gustavo Salas DO Work Phone: [facility] Comment on above: SOB (shortness of br eath) (Primary Dx); Wheezing; Urinary tract bacterial infections; Essential hypertension ([facility]/HCC); Mixed hyperlipidemia ([facility]/HCC); Stage 3a chronic kidney disease (HCC) ([facility]); Sepsis with acute renal failure without septic shock, due to unspecified organism, unspecified acute renal failure type ([facility]/HCC); Hospital discharge follow-up; Medication management; Female bladder prolapse; Pulmonary emphysema, unspecified emphysema type ([facility]/HCC) Start: 11-12-2023 Telephone encounter Nirmala baum [facility] Start: 10-31-2023 Chart abstracting Scanning Pro vider External [facility] Start: 10-30-2023 Telephone encounter Amrit carnes [facility] Comment on above: Neuro Appt Start: 10-21-2023 End: 10-24-2023 [facility] Start: 10-18-2023 End: 10-24-2023 [facility] Start: 10-17-2023 End: 10-24-2023 Evaluation and management of inpatient BING Regalado [facility] Start: 10-15-2023 End: 10-24-2023 [facility] Start: 10-14-2023 End: 10-24-2023 Evaluation and management of inpatient L[place]OXV[place] E [facility] Start: 10-10-2023 End: 10-24-2023 Evaluation and management of inpatient [place] E [facility] Start: 10-08-2023 End: 10-24-2023 Evaluation and management of inpatient NOE Herminio OSEI [facility] Start: 10-06-2023 End: 10-24-2023 Evaluation and management of inpatient SUSANA VELAZQUEZ [facility] Start: 10-06-2023 End: 10-24-2023 Evaluation and management of inpatient FRANCINE YANG [facility] Start: 10-06-2023 End: 10-24-2023 Evaluation and management of inpatient SHEILA BARRY [facility] Start: 10-05-2023 End: 10-24-2023 Evaluation and management of inpatient APURVA SIERRA [facility] Start: 10-05-2023 End: 10-23-2023 Evaluation and management of inpatient ALI TRINA [facility] Start: 08-17-2023 End: 08-20-2023 Evaluation and management of inpatient DO Gustavo Salas Work Phone: [facility] [place] [facility] Work Phone: Start: 07-10-2023 End: 07-14-2023 Evaluation and management of inpatient DO Gustavo Salas Work Phone: [facility] [place] [facility] Work Phone: Start: 06-17-2023 End: 06-17-2023 Emergency department patient visit DO Gustavo Salas Work Phone: [facility] Work Phone: Start: 04-01-2023 End: 04-26-2023 Patient encounter procedure Gustavo Salas DO Work Phone: [facility] Start: 01-22-2023 ambulatory NARCISO VALLE . Facility:[id number] Start: 12-27-[address] Charlie Gao II Facility:[id number] Start: 12-26-2022 End: 12-31-2022 Evaluation and management of inpatient DO Gustavo Salas Work Phone: [facility] Work Phone: Start: 11-22-2022 End: 11-22-2022 Emergency department patient visit DO Gustavo Salas Work Phone: [facility] Work Phone: Start: 05-31-2022 End: 05-31-2022 Emergency department patient visit DO Gustavo Salas Work Phone: [facility] Start: 05-03-2022 End: 05-03-2022 ambulatory Jorge A Renetta Other [facility] Other Start: 05-03-2022 Telephone encounter Jorge A Renetta [facility] Start: 04-24-2022 End: 04-24-2022 ambulatory Jorge A Renetta Other [facility] Other Start: 04-24-2022 Telephone encounter Jorge A Renetta [facility] Start: 03-12-[address] [facility] Start: 03-08-2022 End: 03-08-2022 ambulatory Jorge A Renetta Other [facility] Other Start: 03-08-2022 Telephone encounter Jorge A Renetta [facility] Start: 01-18-2022 End: 01-18-2022 ambulatory Tanya Cesar Other [facility] Other Start: 01-18-2022 Telephone encounter Tanya Cesar [facility] Start: 10-26-2021 End: 10-26-2021 ambulatory Jorge A Renetta Other [facility] Other Start: 10-26-2021 Telephone encounter Jorge A Renetta [facility] Start: 08-02-2019 End: 08-04-2019 Evaluation and management of inpatient CRYS BARBOZA [facility] Start: 08-01-2019 End: 08-04-2019 Evaluation and management of inpatient Gwentricia Bueno Work Phone: [facility] Start: 07-03-2018 End: 07-03-2018 Patient encounter Mely Camarillo Facility:[place] Procedures Date Procedure Procedure Detail Performing Clinician [...] Positive Performed By: #### E LEC #### [facility] ([id number]) [address] [place] [address], [address] [place] [address] Start: 02-19-2024 Adult depression screening assessment Angela Belcher [employer] WR[employer] Work Phone: Start: 02-16-2024 Investigation of transfusion [...] >=3 Positive Performed By: #### C BC, [facility], [id number], [id number] #### [facility] ([id number]) [address], [address] [place] [address] Start: 10-06-2023 Adult depression screening assessment Amrit [...] screening for protein Diabetes: [facility] Start: 03-17-2025 Adult BMI Screening Adult BMI Screening [facility] Start: 03-17-2025 Tobacco Screening Tobacco Screening [facility] Start: 02-18-2025 Depression Screening Depression Screening [facility] Start: 01-26-2025 Echocardiography Echocardiogram [facility] Start: 11-05-2024 End: 11-05-2024 Patient encounter procedure 11/05/2024 3:30 PM EST Procedure Visit [facility] [address] [facility] [address] [place] [address] Kalyan Barboza, MELISSA [address] [facility] 5 [place] [address] [facility] Start: 10-23-2024 Adult BMI Screening Adult BMI Screening [facility] Start: 10-13-2024 End: 10-13-2024 Patient encounter procedure 10/13/2024 2:30 PM EST Office Visit [facility] [address] [place] [address] Gustavo Salas DO [address] [place] [address] [facility] Start: 10-08-2024 End: 10-08-2024 Patient encounter procedure 10/08/2024 4:10 PM EST Procedure Visit [facility] [address] [place] [address] Kalyan Barboza DPM [address] [facility] [address] [place] [address] [facility] Start: 10-07-2024 Echocardiography [facility] Start: 10-06-2024 End: 10-06-2024 Patient encounter procedure 10/06/2024 2:30 PM EST Office Visit [facility] [address] [place] [address] Gustavo Salas DO [address] [place] [address] [facility] Start: 10-06-2024 Depression Screening Depression Screening [facility] Start: 10-06-2024 Tobacco Screening Tobacco Screening [facility] Start: 09-22-2024 End: 12-23-2024 CBC panel - Blood by Automated count CBC Lab Routine Anemia due to stage 3a chronic kidney disease (HCC) ([facility]/HCC) Expected: 09/22/2024 (Approximate), Expires: 12/23/2024 [facility] Work Phone: Comment on above: Expected: 09/22/2024 (Approximate), Expi res: 12/23/2024 Start: 09-22-2024 End: 12-23-2024 Cobalamin (Vitamin B12) [Mass/volume] in Serum or Plasma Vitamin B12 Lab Routine Anemia due to stage 3a chronic kidney disease (HCC) (CMS/HCC) Expected: 09/22/2024 (Approximate), Expires: 12/23/2024 [facility] Comment on above: Expected: 09/22/2024 (Approximate), Expi res: 12/23/2024 Start: 09-22-2024 End: 12-23-2024 Comprehensive metabolic 2000 panel - Serum or Plasma Comprehensive metabolic panel Lab Routine Anemia due to stage 3a chronic kidney disease (HCC) ([facility]/HCC) Expected: 09/22/2024 (Approximate), Expires: 12/23/2024 [facility] Comment on above: Expected: 09/22/2024 (Approximate), Expi res: 12/23/2024 Start: 09-22-2024 End: 12-23-2024 Ferritin [Mass/volume] in Serum or Plasma Ferritin Lab Routine Anemia due to stage 3a chronic kidney disease (HCC) (CMS/HCC) Expected: 09/22/2024 (Approximate), Expires: 12/23/2024 [facility] Comment on above: Expected: 09/22/2024 (Approximate), Expi res: 12/23/2024 Start: 09-22-2024 End: 12-23-2024 Iron and Iron binding capacity panel - Serum or Plasma Iron and TIBC Lab Routine Anemia due to stage 3a chronic kidney disease (HCC) ([facility]/HCC) Expected: 09/22/2024 (Approximate), Expires: 12/23/2024 [facility] Comment on above: Expected: 09/22/2024 (Approximate), Expi res: 12/23/2024 Start: 09-22-2024 End: 12-23-2024 Lipid 1996 panel - Serum or Plasma Lipid panel Lab Routine Mixed hyperlipidemia ([facility]) Anemia due to stage 3a chronic kidney disease (HCC) ([facility]/HCC) Expected: 09/22/2024 (Approximate), Expires: 12/23/2024 [facility] Comment on above: Expected: 09/22/2024 (Approximate), Expi res: 12/23/2024 Start: 09-22-2024 End: 09-22-2024 Patient encounter procedure 09/22/2024 2:00 PM EST Office Visit [facility] [address] [place] [id number] Gustavo Salas DO [address] [place] [address] [facility] Start: 09-22-2024 End: 12-23-2024 Thyrotropin [Units/volume] in Serum or Plasma TSH Lab Routine Anemia due to stage 3a chronic kidney disease (HCC) ([facility]/HCC) Expected: 09/22/2024 (Approximate), Expires: 12/23/2024 [facility] Comment on above: Expected: 09/22/2024 (Approximate), Expi res: 12/23/2024 Start: 09-22-2024 End: 12-23-2024 Thyroxine (T4) free [Mass/volume] in Serum or Plasma T4, free Lab Routine Anemia due to stage 3a chronic kidney disease (HCC) ([facility]/HCC) Expected: 09/22/2024 (Approximate), Expires: 12/23/2024 [facility] Comment on above: Expected: 09/22/2024 (Approximate), Expi res: 12/23/2024 Start: 09-22-2024 End: 12-23-2024 Triiodothyronine (T3) Free [Mass/volume] in Serum or Plasma T3, free Lab Routine Anemia due to stage 3a chronic kidney disease (HCC) ([facility]/HCC) Expected: 09/22/2024 (Approximate), Expires: 12/23/2024 [facility] Comment on above: Expected: 09/22/2024 (Approximate), Expi res: 12/23/2024 Start: 09-10-2024 End: 09-10-2024 Patient encounter procedure 09/10/2024 2:00 PM EST Procedure Visit [facility] [address] [address] Kalyan Barboza DPM [address] [address] [facility] Start: 07-24-2024 End: 07-24-2024 Patient encounter procedure 07/24/2024 3:30 PM EDT Office Visit [facility] [address] [place] [address] Kalyan Barboza DPM [address] [address] [facility] Start: 07-24-2024 End: 07-24-2024 Patient encounter procedure 07/24/2024 11:40 AM EDT Procedure Visit [facility] [address] [place] [phone] Kalyan Barboza, HAMLETM [address] [address] [facility] Start: 07-23-2024 End: 07-23-2024 Clinical Support 07/23/2024 1:20 PM EDT Clinical Support [facility] [address] [facility] [address] [place] [phone] Kalyan Barboza DPM [address] [address] Other specified disorders of synovium, left ankle and foot (Primary Dx); Right Achilles tendinitis; Venous insufficiency [facility] Comment on above: Other specified disorders of synovium, l eft ankle and foot (Primary Dx); Right Achilles tendinitis; Venous insufficiency Start: 07-02-2024 End: 07-02-2024 Patient encounter procedure 07/02/2024 1:20 PM EDT Office Visit [facility] [address] [facility] [address] [place] [phone] Kalyan Barboza DPM [address] [address] [facility] Start: 06-28-2024 COVID-19 Vaccine ( season) COVID-19 Vaccine ( season) [facility] Start: 06-28-2024 Influenza vaccination [facility] Start: 05-11-2024 End: 05-11-2024 Patient encounter procedure 05/11/2024 10:30 AM EDT Office Visit [facility] [address] [facility] [address] Markos Ortega MD [address] [place] [address] [facility] Start: 04-27-2024 Screening for osteoporosis Bone Density Scan [facility] Start: 04-27-2024 End: 04-27-2024 Patient encounter procedure 04/27/2024 1:00 PM EDT Appointment [facility] [address] [place] [address] [facility] Start: 04-01-2024 Medicare Annual Wellness (AWV) Medicare Annual Wellness (AWV) [facility] Start: 02-19-2024 [facility] Start: 02-18-2024 [facility] Start: 02-17-2024 [facility] Start: 02-16-2024 Microbial culture of sputum [facility] Start: 02-14-2024 [facility] Start: 02-14-2024 Referral to [employer] [facility] Start: 02-14-2024 [facility] Start: 02-14-2024 Hospital admission [facility] Start: 02-14-2024 Bacteria identified in Blood by Culture [facility] Start: 02-14-2024 Bacteria identified in Urine by Culture [facility] Start: 02-14-2024 Blood culture for bacteria, including anaerobic screen Blood Culture [facility] Start: 02-14-2024 Duplex scan of lower limb veins US venous duplex LE RT [facility] Start: 02-14-2024 US Lower extremity vein - right [facility] Start: 02-10-2024 End: 02-10-2024 Patient encounter procedure 02/10/2024 12:30 PM EDT Office Visit [facility] [address] [facility] [address] [place] [address] Jenna Engle MD [address] [facility] [address] [place] [address] [facility] Start: 01-27-2024 End: 01-27-2024 Patient encounter procedure 01/27/2024 1:30 PM EDT Appointment [facility] [address] [address] [facility] Start: 01-19-2024 COVID-19 Vaccine () COVID-19 Vaccine () [facility] Start: 01-10-2024 End: 01-10-2024 Patient encounter procedure 01/10/2024 2:00 PM EDT Office Visit [facility] [address] [place] [address] William Gallagher MD [address] [facility] [address] [place] [address] [facility] Start: 01-06-2024 End: 01-05-2025 CBC panel - Blood by Automated count CBC Lab Routine Shortness of breath Expected: 01/06/2024 (Approximate), Expires: 01/05/2025 [facility] Work Phone: Comment on above: Expected: 01/06/2024 (Approximate), Expi res: 01/05/2025 Start: 01-06-2024 End: 01-05-2025 Comprehensive metabolic 2000 panel - Serum or Plasma Comprehensive Metabolic Panel Lab Routine Shortness of breath Expected: 01/06/2024 (Approximate), Expires: 01/05/2025 [facility] Work Phone: Comment on above: Expected: 01/06/2024 (Approximate), Expi res: 01/05/2025 Start: 01-06-2024 End: 01-05-2025 Erythrocyte sedimentation rate Sedimentation Rate Lab Routine Shortness of breath Expected: 01/06/2024 (Approximate), Expires: 01/05/2025 [facility] Work Phone: Comment on above: Expected: 01/06/2024 (Approximate), Expi res: 01/05/2025 Start: 01-06-2024 End: 01-05-2025 Natriuretic peptide B [Mass/volume] in Blood B-Type Natriuretic Peptide Lab Routine Shortness of breath Expected: 01/06/2024 (Approximate), Expires: 01/05/2025 [facility] Work Phone: Comment on above: Expected: [...] of breath Expected: 01/06/2024 (Approximate), Expires: 01/05/2025 [facility] Work Phone: Comment on above: Expected: 01/06/2024 (Approximate), Expi res: 01/05/2025 Start: 12-30-2023 End: 12-30-2023 Patient encounter procedure 12/30/2023 11:15 AM EST Office Visit [facility] [address] [place] [address] Gustavo Salas DO [address] [place] [address] [facility] Start: 12-16-2023 End: 12-16-2023 Patient encounter procedure 12/16/2023 11:30 AM EST Office Visit [facility] [address] [place] [phone] Yovani Glover PA-C [address] [place] [address] [facility] Start: 12-09-2023 End: 12-09-2024 Bacteria identified in Urine by Culture Urine culture (clean catch) Microbiology Routine Urinary tract bacterial infections Expected: 12/09/2023 (Approximate), Expires: 12/09/2024 [facility] Comment on above: Expected: 12/09/2023 (Approximate), Expi res: 12/09/2024 Start: 12-09-2023 End: 12-09-2024 CBC W Auto Differential panel - Blood CBC and differential Lab Routine Essential hypertension ([facility]/HCC) Expected: 12/09/2023 (Approximate), Expires: 12/09/2024 [facility] Work Phone: Comment on above: Expected: 12/09/2023 (Approximate), Expi res: 12/09/2024 Start: 12-09-2023 End: 12-09-2024 Comprehensive metabolic 2000 panel - Serum or Plasma Comprehensive metabolic panel Lab Routine Essential hypertension (CMS/HCC) Expected: 12/09/2023 (Approximate), Expires: 12/09/2024 [facility] Comment on above: Expected: 12/09/2023 (Approximate), Expi res: 12/09/2024 Start: 12-09-2023 End: 12-09-2024 Magnesium [Mass/volume] in Serum or Plasma Magnesium Lab Routine Stage 3a chronic kidney disease (HCC) ([facility]/HCC) Expected: 12/09/2023 (Approximate), Expires: 12/09/2024 [facility] Comment on above: Expected: 12/09/2023 (Approximate), Expi res: 12/09/2024 Start: 11-11-2023 End: 11-11-2023 Patient encounter procedure 11/11/2023 9:15 AM EST Office Visit [facility] [address] [place] [address] [address] [place] [address] Jose Martin Galicia MD [address] [place] [address], [address] [place], [place] [id number] [facility] Start: 11-05-2023 End: 11-05-2023 Patient encounter procedure 11/05/2023 12:30 PM EST Office Visit [facility] [address] [place] [phone] Yovani Glover PA-C [address] [place] [address] [facility] Start: 08-20-2023 [facility] Start: 08-19-2023 Stool culture for bacteria Stool Culture [facility] Start: 08-18-2023 Blood chemistry [facility] Start: 08-18-2023 Duplex scan of lower limb veins US venous duplex LE BI [facility] Start: 08-18-2023 [facility] Start: 08-18-2023 Referral to [facility] Start: 08-17-2023 Hospital admission [facility] Start: 08-17-2023 Physical therapy procedure [facility] Start: 08-17-2023 Referral to occupational therapist [facility] Start: 08-17-2023 [facility] Start: 08-17-2023 Bacteria identified in Stool by Culture [facility] Start: 08-17-2023 [facility] Start: 08-17-2023 Bacteria identified in Blood by Culture [facility] Start: 08-17-2023 Blood culture for bacteria, including anaerobic screen Blood Culture [facility] Start: 07-14-2023 [facility] Start: 07-10-2023 Bacteria identified in Blood by Culture Blood Culture [facility] Start: 07-10-2023 Bacteria identified in Urine by Culture Urine Culture [facility] Start: 07-10-2023 Blood culture for bacteria, including anaerobic screen Blood Culture [facility] Start: 07-10-2023 Hospital admission [facility] Start: 02-26-2023 Hemoglobin A1c measurement Diabetes: Hemoglobin A1C [facility] Start: 12-31-2022 [facility] Start: 12-26-2022 Hospital admission [facility] Start: 12-26-2022 Referral to [facility] Start: 12-26-2022 [facility] Start: 12-26-2022 [facility] Start: 08-03-2020 Creatinine monitoring Creatinine monitoring [place], [place] Start: 08-03-2020 Potassium monitoring Potassium monitoring [place] Start: 08-02-2019 Annual Wellness Visit (AWV) Annual Wellness Visit (AWV) [place] Start: 06-28-2019 Influenza vaccination Flu vaccine (#1) [place] Start: 2010 DEXA (modify frequency per FRAX score) DEXA (modify frequency per FRAX score) [place] Start: 2010 Fall Risk Screening Fall Risk Screening [facility] Start: 2010 Pneumococcal 65+ years Vaccine (1 of 2 - PCV13) Pneumococcal 65+ years Vaccine (1 of 2 - PCV13) [place] Start: 1995 Administration of varicella zoster vaccine Zoster (Shingles) Vaccine (1 of 2) [facility] Start: 1995 Breast cancer screen Breast cancer screen [place], [place] Start: 1995 Colon cancer screen colonoscopy Colon cancer screen colonoscopy [place] Start: 1995 Shingles Vaccine (1 of 2) Shingles Vaccine (1 of 2) [place] Start: 1995 Zoster Vaccines (1 of 2) Zoster Vaccines (1 of 2) [facility] Start: 1967 DTaP/Tdap/Td Vaccines (1 - Tdap) DTaP/Tdap/Td Vaccines (1 - Tdap) [facility] Start: 1964 DTaP,Tdap and Td Vaccines (1 - Tdap) DTaP,Tdap and Td Vaccines (1 - Tdap) [facility] Start: 1964 DTaP/Tdap/Td vaccine (1 - Tdap) DTaP/Tdap/Td vaccine (1 - Tdap) [place] Start: 1964 Urine screening for protein Diabetes: Urine Protein Screening [facility] Start: 1963 Adult BMI Follow Up Plan Adult BMI Follow Up Plan [facility] Start: 1963 Diabetes mellitus screening Diabetes Screening [facility] Start: 1963 Hepatitis C screening Hepatitis C Screening [facility] Start: 1955 Glaucoma screening Diabetes: Retinopathy Screening [facility] Start: 1955 Lipid screen Lipid screen [place] Start: 1945 Creatinine measurement Creatinine Level [facility] Start: 1945 Hepatitis C screen Hepatitis C screen [place], [place] Start: 1945 Lipid panel Lipid Panel [facility] Start: 1945 Medicare Annual Wellness Visit [facility] Start: 1945 Potassium measurement Potassium Level [facility] Start: 1945 Tobacco Counseling Tobacco Counseling [facility] Anion gap measurement [facility] Bacteria identified in Urine by Culture URINE CULTURE, ROUTINE Lab Routine 10/07/2024 2:58 AM EST [facility] Healthcare Basophils [#/volume] in Blood by Automated count [facility] Basophils/100 leukoc ytes in Blood by Automated count [facility] BLOOD CULTURE 1 BLOOD CULTURE 1 Lab Routine 09/19/2024 12:22 PM EST [facility] BLOOD CULTURE 2 BLOOD CULTURE 2 Lab Routine 09/19/2024 12:23 PM EST [facility] Healthcare BLOOD CULTURE 2 BLOOD CULTURE 2 Lab Routine 10/12/2024 7:25 PM EST [facility] Healthcare Eosinophils [#/volum e] in Blood [facility] Eosinophils/100 leukocytes in Blood by Automated count [facility] Erythrocyte distribu tion width [Ratio] by Automated count [facility] Erythrocytes [#/volu me] in Blood [facility] Hematocrit [Volume Fraction] of Blood [facility] Hemoglobin [Mass/vol ume] in Blood [facility] Initiate Oxygen Ther apy Protocol Initiate Oxygen Therapy Protocol Respiratory Care Routine Daily until discontinued starting 08/02/2019 [place] Comment on above: Daily until discontinued starting 2018 Leukocytes [#/volume ] corrected for nucleated erythrocytes in Blood by Automated coun [facility] Leukocytes [#/volume ] in Blood [facility] Lymphocytes [#/volum e] in Blood by Automated count [facility] Lymphocytes/100 leukocytes in Blood by Automated count [facility] MCH [Entitic mass] b y Automated count [facility] MCHC [Mass/volume] b y Automated count [facility] MCV [Entitic volume] by Automated count [facility] Monocytes [#/volume] in Blood by Automated count [facility] Monocytes/100 leukoc ytes in Blood by Automated count [facility] Neutrophils [#/volum e] in Blood by Automated count [facility] Neutrophils/100 leukocytes in Blood by Automated count [facility] Nucleated erythrocyt es [Presence] in Blood by Automated count [facility] Patient Education [facility] Work Phone: Patient referral [facility] Work Phone: Platelet mean volume [Entitic volume] in Blood by Automated count [facility] Platelets [#/volume] in Blood [facility] End: 08-02-2019 PREVIOUS SPECIMEN PREVIOUS SPECIMEN Lab Routine Once for 1 Occurrences starting 08/02/2019 until 08/02/2019 [place] Comment on above: Once for 1 Occurrences starting 08/02/20 19 until 08/02/2019 PREVIOUS SPECIMEN PREVIOUS SPECI MEN Lab Routine 08/02/2019 9:43 AM EDT [place] End: 05-01-2025 Pulmonary function test Complete PFT w/ BD (Spirometry (Flow Volume Loop) pre/post short acting bronchodilator w/ DLCO (diffusion study) and Lung Volume) Pulmonary function test Complete PFT w/ BD (Spirometry (Flow Volume Loop) pre/post short acting bronchodilator w/ DLCO (diffusion study) and Lung Volume) PFT Routine Chronic obstructive pulmonary disease, unspecified COPD type ([facility]) 1 Occurrences starting 05/01/2024 until 05/01/2025 [facility] Work Phone: Comment on above: 1 Occurrences starting 05/01/2024 until 05/01/2025 Urinalysis complete panel - Urine Urinalysis with microscopic Lab Routine Urinary tract bacterial infections Stage 3a chronic kidney disease (HCC) ([facility]) Ordered: 12/09/2023 [facility] Comment on above: Ordered: 12/09/2023 End: 01-27-2024 [facility] Work Phone: Comment on above: Once for 1 Occurrences starting 01/27/20 24 until 01/27/2024 Immunizations Immunization Date Immunization Notes Care Provider Napoleon garibay 09-02-2023 Influenza, High-dose , Quadrivalent Amrit Ortega [facility] 09-02-2023 influenza virus vaccine, unspecified formulation Angela Zirker [employer] Work Phone: [facility] 08-31-2023 tuberculin skin test ; unspecified formulation Angela Zirker [employer] Work Phone: [facility] 08-21-2023 tuberculin skin test ; unspecified formulation Angela Zirker [employer] Work Phone: [facility] 01-07-2023 SARS-COV-2 (COVID-19 ) vaccine, mRNA, spike protein, LNP, bivalent, preservative free, 30 mcg/0.3 mL dose, monserrat-sucrose formulation Gustavo Salas DO Work Phone: [facility] 01-07-2023 tuberculin skin test ; unspecified formulation Angela Girishrjoyce [employer] Work Phone: [facility] 12-31-2022 tuberculin skin test ; purified protein derivative solution, intradermal Gustavo Salas DO Work Phone: [facility] 12-31-2022 tuberculin skin test ; unspecified formulation Angela Girishrjoyce [employer] Work Phone: [facility] 07-30-2022 influenza, high dose seasonal, preservative-free Gustavo Salas DO Work Phone: [facility] 07-30-2022 Influenza, High-dose Seasonal, Quadrivalent, Preservative Free Gustavo Salas DO Work Phone: [facility] 06-08-2021 pneumococcal polysaccharide vaccine, 23 valent Gustavo Salas DO Work Phone: [facility] 03-09-2021 COVID-19 Moderna Tanya Cesar Other [facility] 02-10-2021 COVID-19 Moderna Tanya Cesar Other [facility] 11-07-2020 influenza, high dose seasonal, preservative-free Gustavo Salas DO Work Phone: [facility] 11-07-2020 influenza, seasonal, injectable Jenna Engle MD Work Phone: [facility] Work Phone: 08-04-2020 Seasonal trivalent influenza vaccine, adjuvanted, preservative free Gustavo Salas DO Work Phone: [facility] 07-14-2018 influenza, high dose seasonal, preservative-free Jorge A Renetta Other [facility] 07-14-2018 influenza virus vaccine, unspecified formulation DO Gustavo Salas Work Phone: [facility] 07-13-2018 Influenza, High-dose , Quadrivalent Gustavo Salas DO Work Phone: [facility] 08-02-2017 influenza, high dose seasonal, preservative-free Jorge A Renetta Other [facility] [employer] Other 08-02-2017 influenza virus vaccine, unspecified formulation DO Gustavo Salas Work Phone: [facility] 08-01-2017 Influenza, High-dose , Quadrivalent Gustavo Salas DO Work Phone: [facility] 07-26-2016 pneumococcal conjuga te vaccine, 13 valent Jorge A Renetta Other [facility] 07-26-2016 influenza, high dose seasonal, preservative-free Jorge A Renetta Other [facility] Other 07-26-2016 influenza virus vaccine, unspecified formulation DO Gustavo Salas Work Phone: [facility] 07-25-2016 Influenza, High-dose , Quadrivalent Gustavo Salas DO Work Phone: [facility] 08-23-2015 influenza, high dose seasonal, preservative-free Jorge A Renetta Other [facility] [employer] Other 08-23-2015 influenza virus vaccine, unspecified formulation DO Gustavo Salas Work Phone: [facility] 08-22-2015 Influenza, High-dose , Quadrivalent Gustavo Salas DO Work Phone: [facility] 10-28-2014 pneumococcal polysaccharide vaccine, 23 valent Jenna Engle MD Work Phone: [facility] Work Phone: 07-26-2014 influenza, seasonal, injectable Gustavo Salas DO Work Phone: [facility] 07-08-2014 influenza, injectabl e, quadrivalent, contains preservative Jorge A Renetta Other [facility] 09-28-2013 influenza, injectabl e, quadrivalent, contains preservative Jorge A Renetta Other [facility] 12-04-2010 pneumococcal conjuga te vaccine, 7 valent Jorge A Renetta Other [facility] Other 12-04-2010 pneumococcal Conjuga te, unspecified formulation DO Gustavo Salas Work Phone: [facility] Payers Date Payer Category Payer Medicaid [id number] 2024 Medicare (Managed Care) [facility] MEDICARE [id number] 2024 Medicare HMO [facility] MEDICARE [id number] 2024 Unknown [id number] 2024 Self-pay [id number] 2023 Private Health Insurance [facility] D[facility] [employer] DUAL COMPLETE [id number] 2023-Present [address] [address] [place] [address] [id number] [id number] 2022 Medicare [id number] [id number]. [id number] 2021 Medicaid [id number]. 1.13.693. [id number] 2018 Medicare [id number] 2017 Private Health Insurance [id number] 2014 Medicaid [id number] 2014 Medicaid MEDICAID [facility] DEPT OF JOB xxxxxxxxxxxx 2014-Present [phone] [address] [place] [address] xxxxxxxxxxxx [id number] [id number] 2014 Medicare [id number] 2014 Medicare MEDICARE MEDICAR E PART A AND B xxxxxxxxxxx 2014-Present [phone] [place] [address] xxxxxxxxxxx [id number] [id number] 1945 Unknown [id number] 2.16.840.1.933281.3.579. 2.175 1945 Unknown [id number] 2.16.840.1.846002.3.579. 2.356 1945 Unknown [id number] 2.16.840.1.185472.3.579. 2.356 1945 Unknown [id number] 2.16.840.1.611753.3.579. 2.593 1945 Unknown [id number] 2.16.840.1.059985.3.579. 2.1244 1945 Unknown [id number] 2.16.840.1.575690.3.579. 2.1244 1945 Unknown [id number] 2.16.840.1.651943.3.579. 2.727 1945 Unknown [id number] 2.16.840.1.656522.3.579. 2.727 1945 Unknown [id number] 2.16.840.1.472478.3.579. 2.1286 1945 Unknown [id number] 2.16.840.1.611907.3.579. 2.1286 1945 Unknown [id number] 2.16.840.1.547940.3.579. 2.1286 1945 Unknown [id number] 2.16.840.1.261378.3.579. 2.1286 1945 Unknown [id number] 2.16.840.1.652065.3.579. 2.1286 1945 Unknown [id number] 2.16.840.1.661441.3.579. 2.1286 1945 Unknown [id number] 2.16.840.1.374692.3.579. 2.1286 1945 Unknown [id number] 2.16.840.1.218006.3.579. 2.1286 1945 Unknown [id number] 2.16.840.1.398379.3.579. 2.1286 1945 Unknown [id number] 2.16.840.1.742111.3.579. 2.1286 1945 Unknown [id number] 2.16.840.1.348824.3.579. 2.1286 1945 Unknown [id number] 2.16.840.1.033882.3.579. 2.128 1945 Unknown [id number] 2.16.840.1.381112.3.579. 2.128 1945 Unknown [id number] 2.16.840.1.951399.3.579. 2.1286 1945 Unknown [id number] 2.16.840.1.598513.3.579. 2.128 1945 Unknown [id number] 2.16.840.1.097482.3.579. 2.1286 1945 Unknown [id number] 2.16.840.1.918156.3.579. 2.128 1945 Unknown [id number] 2.16.840.1.556175.3.579. 2.128 1945 Unknown [id number] 2.16.840.1.324674.3.579. 2.1285 1945 Unknown [id number] 2.16.840.1.668938.3.579. 2.128 1945 Unknown [id number] 2.16.840.1.699474.3.579. 2.128 1945 Unknown [id number] 2.16.840.1.095433.3.579. 2.1285 1945 Unknown [id number] 2.16.840.1.438684.3.579. 2.1285 1945 Unknown [id number] 2.16.840.1.636770.3.579. 2.1285 1945 Unknown [id number] 2.16.840.1.406778.3.579. 2.1285 1945 Unknown [id number] 2.16.840.1.743616.3.579. 2.1285 1945 Unknown [id number] 2.16.840.1.841260.3.579. 2.1285 1945 Unknown [id number] 2.16.840.1.565050.3.579. 2.1285 1945 Unknown [id number] 2.16.840.1.428265.3.579. 2.1285 1945 Unknown [id number] 2.16.840.1.021694.3.579. 2.1285 1945 Unknown [id number] 2.16.840.1.520863.3.579. 2.1285 1945 Unknown [id number] 2.16.840.1.215160.3.579. 2.1285 1945 Unknown [id number] 2.16.840.1.221750.3.579. 2.1285 1945 Unknown [id number] 2.16.840.1.118630.3.579. 2.1285 1945 Unknown [id number] 2.16.840.1.967365.3.579. 2.1285 1945 Unknown [id number] 2.16.840.1.590827.3.579. 2.1285 1945 Unknown [id number] 2.16.840.1.241576.3.579. 2.1286 1945 Unknown [id number] 2.16.840.1.247391.3.579. 2.1286 1945 Unknown [id number] 2.16.840.1.009776.3.579. 2.1258 1945 Unknown [id number] 2.16.840.1.726450.3.579. 2.125 1945 Unknown [id number] 2.16.840.1.389210.3.579. 2.1258 1945 Unknown [id number] 2.16.840.1.786193.3.579. 2.1258 1945 Unknown [id number] 2.16.840.1.010096.3.579. 2.1258 1945 Unknown [id number] 2.16.840.1.485155.3.579. 2.1258 1945 Unknown [id number] 2.16.840.1.115120.3.579. 2.1258 1945 Unknown [id number] 2.16.840.1.226203.3.579. 2.1258 1945 Unknown [id number] 2.16.840.1.687587.3.579. 2.1258 1945 Unknown [id number] 2.16.840.1.348607.3.579. 2.1258 1945 Unknown [id number] 2.16.840.1.830240.3.579. 2.1258 1945 Unknown [id number] 2.16.840.1.634447.3.579. 2.1246 Medicare [id number] 2.16840.1.466852.19 Unknown [facility] 2 [id number] Unknown [id number] 2.16.840.1.521047.3.579. 2.531 Unknown [id number] 2.16.840.1.872970.3.579. 2.531 Social History Date Type Detail Facility Start: 06-23-2012 End: 05-06-2024 Tobacco smoking status NHIS Former smoker [facility] Start: 10-16-1974 End: 10-16-2019 History of tobacco use Current smoker [place] Start: 10-16-1974 End: 10-16-2019 History of tobacco use Cigarette Smoker [place] Start: 06-23-2012 End: 12-08-2020 Alcohol intake No [place] Start: 06-23-2012 Alcohol Comment stopped 20 years [place], [place] Start: 1945 Sex Assigned At Not on file [place] Start: 1945 Sex Assigned At Female F [facility] Start: 08-23-2023 End: 10-06-2023 Tobacco smoking status IAIS Smokes tobacco daily [facility] Start: 12-08-2020 [...] 02-10-2024 Exposure to SARS-CoV-2 (event) Not sure [facility] Start: 01-30-2024 Tobacco smoking status Light t obacco smoker (finding) [facility] Start: 02-10-2024 Tobacco smoking stat us NHIS Occasional tobacco smoker [facility] Work Phone: Has the electric, [employer], oil, or water company threatened to shut off services in your home in past 12Mo [employer] [facility] Start: 04-08-2019 Sex Female (finding) [facility] Medical Equipment Procedure Code Equipment Code Equipment Origin al Text Equipment Identifier Dates CL CLOSURE DEVIC E EXOSEAL 6F FDA Start: 04-29-2019 CL STENT KELLY 2.75 X 23 FDA Start: 04-29-2019 Orthopaedic bone screw, non-bioabsorbable, non-sterile [id number] FDA Start: 09-02-2020 Femur nail, sterile ()[id number] FDA Start: 09-02-2020 Spiral blade ()[id number] FDA Start: 09-02-2020 CL CLOSURE DEVIC E [...] towards goal: lists sent to [facility] Functional Status Date Assessment Result Facility 02-17-2024 Functional status 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 [facility] Work Phone: 02-14-2024 Functional status Patient Not at [facility] Work Phone: 01-30-2024 Functional Status N/A [facility] 08-20-2023 Functional status Patient at [facility] Work Phone: 07-14-2023 Functional status Patient at [facility] Work Phone: 12-31-2022 Functional status Patient Not at [facility] Work Phone: Mental Status Date Assessment Result Facility 02-17-2024 Cognitive function Cognitive Sta tus Patient at Baseline [facility] Work Phone: 02-14-2024 Cognitive function Cognitive Sta tus Patient at [facility] Work Phone: 08-20-2023 Cognitive function Cognitive Sta tus Patient at [facility] Work Phone: 07-14-2023 Cognitive function Cognitive Sta tus Patient at [facility] Work Phone: 12-31-2022 Cognitive function Cognitive Sta tus Patient at [facility] Work Phone: Clinical Notes 01-18-2022 to 10-26-2024 Chano Presley, - 10/26/2024 4:50 PM Yesy Presley, DO - 10/20/2024 2:59 PM Yesy Presley, DO - 10/16/2024 3:17 PM Ashleigh Salas, DO - 10/06/2024 2:30 PM EST Note Date & Type Note Facility 10-26-2024 History of Present illness Narrative Patient Name: Gera Perdue Date of : 1945 Date of Service: 10/26/2024 Facility: [facility] Type of Visit: Skilled Visit Subjective Gera Perdue is a 78 y.o. female seen today at senior care facility for therapy visit. Gera is participating [...] Chronic obstructive pulmonary disease with acute exacerbation ([facility]) 3. Sleep apnea, unspecified type 4. Moderate episode of recurrent major depressive disorder ([facility]) 5. 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 Closed wedge [...] Chano Presley DO documented in this encounter [email or web address] 10-20-2024 History of Present illness Narrative Patient Name: Gera Perdue Date of : 1945 Date of Service: 10/20/2024 Facility: [facility] Type of Visit: Skilled Visit Subjective Gera Perdue is a 78 y.o. female seen today at senior care facility for therapy visit. Gera therapy and [...] past and it worked better. The optum [employer] HELPER saw her and her med list from [...] Moderate episode of recurrent major depressive disorder ([facility]) 6. Encephalopathy, unspecified type I am going [...] Chano Presley DO documented in this encounter [facility] 10-16-2024 History of Present illness Narrative Patient Name: Gera Perdue Date of : 1945 Date of Service: 10/16/2024 Facility: [facility] Type of Visit: Admission H&P Subjective Gera Perdue is a 78 y.o. female seen today at senior care facility for admission H&P. Gera presents to [facility] for therapy. She was recently admitted to the [facility] for a COPD exacerbation and back pain. [...] Medical History: Diagnosis Date Acute respiratory failure ([facility]) 10/05/2023 Chronic kidney disease (CKD), stage III (moderate) ([facility]) Compression fracture of C7 vertebra ([facility]) 10/18/2023 COPD (chronic obstructive pulmonary disease) ([facility]) Depression Eczema GERD (gastroesophageal reflux disease) Hyperlipidemia Hypertension MRSA bacteremia 10/15/2023 Osteoarthritis Pulmonary hypertension ([facility]) Shortness of breath 02/19/2024 Sleep apnea TIA (transient ischemic attack) Past Surgical History: Procedure Laterality Date BRONCHOSCOPY ALVEOLAR LAVAGE N/A 02/24/2024 Performed by Elsa Quinonez MD at [facility] No family history on file. Allergies: [...] Chronic obstructive pulmonary disease with acute exacerbation ([facility]) 2. Sleep apnea, unspecified type 3. Anxiety 4. Insomnia, unspecified type 5. Closed fracture of sixth thoracic vertebra with routine healing, unspecified fracture morphology, subsequent encounter 6. 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 Continue medications for the [...] Chano Presley DO documented in this encounter [facility] 10-06-2024 History of Present illness Narrative Images from the original note were not included. Subjective Patient ID: Gera Perdue is a 78 y.o. female who presents for Hospital Follow-up. HPI Review of Systems Objective Physical Exam Assessment/Plan Problem List Items Addressed This Visit Failed back syndrome COPD (chronic obstructive pulmonary disease) ([facility]) - Primary Foraminal stenosis of lumbar region NO show documented in this encounter [facility] 07-23-2024 History of Present illness Narrative Patient: [...] hip pain 03/25/2024 ARTURO (acute kidney injury) ([facility]) 10/05/2023 Anticoagulated 08/02/2019 Anxiety Arthritis At risk for falls Attention to colostomy ([facility]) 05/27/2014 Carotid stenosis Carotid stenosis, bilateral 03/25/2024 Chronic respiratory failure with hypoxia ([facility]) 01/06/2024 Chronic ulcer of left foot with fat layer exposed ([facility]) Closed head injury 03/25/2024 Closed intertrochanteric fracture of left hip ([facility]) 03/25/2024 Cognitive communication deficit 12/31/2022 Colon polyps Colostomy status ([facility]) 02/25/2015 Constipation Contusion of hip 03/25/2024 COPD (chronic obstructive pulmonary disease) ([facility]) COPD with asthma overlap Cough with expectoration 01/06/2024 Decubitus ulcer of left buttock, stage 1 03/25/2024 Depression ([facility]) Dermatitis Diabetic neuropathy ([facility]) 03/25/2024 Difficulty in walking, not elsewhere classified 08/20/2023 Diverticulitis of intestine, part unspecified, without perforation or abscess without bleeding 12/31/2022 Diverticulosis Encephalopathy Essential tremor 03/25/2024 Facet arthritis of lumbosacral region 03/25/2024 Failed back surgical syndrome Fall Falls frequently 08/20/2023 Female incontinence Frequent UTI 01/06/2024 GERD (gastroesophageal reflux disease) Heart disease History of diverticulitis 02/25/2015 HLD (hyperlipidemia) ([facility]) HTN (hypertension) ([facility]) Impaired mobility and ADLs 03/25/2024 Inability to perform activities of daily living 03/25/2024 Incisional hernia without obstruction or gangrene Insomnia Intertrigo 12/31/2022 Intrinsic (allergic) eczema 08/21/2023 Leukocytosis 03/25/2024 Longstanding persistent atrial fibrillation ([facility]) 08/02/2019 Lower extremity edema Major depressive disorder, recurrent, unspecified ([facility]) 12/31/2022 Microcytic anemia 01/06/2024 Mild congestive heart failure ([facility]) 03/25/2024 Muscle weakness (generalized) 12/31/2022 Nausea and vomiting 03/25/2024 Neck pain Nicotine dependence, unspecified, uncomplicated 12/31/2022 Nutritional deficiency, unspecified 08/27/2023 Obesity Obesity OM (onychomycosis) Osteoarthritis of left hip 03/25/2024 Osteoporosis ([facility]) Osteoporosis ([place]) Personal history of transient ischemic attack (TIA), and cerebral infarction without residual deficits 12/31/2022 Physical deconditioning 03/25/2024 Plantar verruca Pneumonia of right lower lobe due to infectious organism 02/19/2024 Polyneuropathy, unspecified 08/20/2023 Pulmonary hypertension ([facility]) 12/31/2022 S/P right coronary artery (RCA) stent placement S/P total left hip arthroplasty Sinus tarsi syndrome of left foot Sleep apnea Small bowel obstruction ([facility]) 08/01/2019 Smoker SOB (shortness of breath) Speech [...] mouth Daily, Disp: 90 tablet, Rfl: 2 Jkteikndlws-Fcaucbrjy-Yfnaim (Trelegy Ellipta) 100-62.5-25 MCG/ACT aerosol powder , Inhale 1 puff in the morning., Disp: 1 each, Rfl: 3 Onzuyolcinu-Hdynztrjv-Ifzwhv (Trelegy Ellipta) 200-62.5-25 MCG/ACT aerosol powder , [...] Disp: 90 tablet, Rfl: 3 nystatin (Mycostatin) [id number] UNIT/GM powder, Apply topically 2 (two) times [...] Insecurity: No Food Insecurity (02/19/2024) Received from [facility], [facility] Within the past 12 months we worried whether our food would run out before we got money to buy more.: Never True Within the past 12 months the food we bought just didn't last and we didn't have money to get more.: Never True Transportation Needs: No Transportation Needs (02/19/2024) Received from [facility], [facility] PRAPARE - Transportation Lack of Transportation (Medical): No Lack of Transportation (Non-Medical): No Physical Activity: Not on file Stress: Not on file Social Connections: Not on file Intimate Partner Violence: Not on file Housing Stability: Low Risk (02/19/2024) Received from [facility], [facility] Housing Instability Are you worried or concerned [...] well as Achilles tendon with negative palpable Blanding ASSESSMENT 1. Other specified disorders of synovium, [...] Kalyan Barboza DPM documented in this encounter [facility] 07-02-2024 History of Present illness Narrative Patient: [...] hip pain 03/25/2024 ARTURO (acute kidney injury) ([facility]) 10/05/2023 Anticoagulated 08/02/2019 Anxiety Arthritis At risk for falls Attention to colostomy ([facility]) 05/27/2014 Carotid stenosis Carotid stenosis, bilateral 03/25/2024 Chronic respiratory failure with hypoxia ([facility]) 01/06/2024 Chronic ulcer of left foot with fat layer exposed ([facility]) Closed head injury 03/25/2024 Closed intertrochanteric fracture of left hip ([facility]) 03/25/2024 Cognitive communication deficit 12/31/2022 Colon polyps Colostomy status ([facility]) 02/25/2015 Constipation Contusion of hip 03/25/2024 COPD (chronic obstructive pulmonary disease) ([facility]) COPD with asthma overlap Cough with expectoration 01/06/2024 Decubitus ulcer of left buttock, stage 1 03/25/2024 Depression ([facility]) Dermatitis Diabetic neuropathy ([facility]) 03/25/2024 Difficulty in walking, not elsewhere classified 08/20/2023 Diverticulitis of intestine, part unspecified, without perforation or abscess without bleeding 12/31/2022 Diverticulosis Encephalopathy Essential tremor 03/25/2024 Facet arthritis of lumbosacral region 03/25/2024 Failed back surgical syndrome Fall Falls frequently 08/20/2023 Female incontinence Frequent UTI 01/06/2024 GERD (gastroesophageal reflux disease) Heart disease History of diverticulitis 02/25/2015 HLD (hyperlipidemia) ([facility]) HTN (hypertension) ([facility]) Impaired mobility and ADLs 03/25/2024 Inability to perform activities of daily living 03/25/2024 Incisional hernia without obstruction or gangrene Insomnia Intertrigo 12/31/2022 Intrinsic (allergic) eczema 08/21/2023 Leukocytosis 03/25/2024 Longstanding persistent atrial fibrillation ([facility]) 08/02/2019 Lower extremity edema Major depressive disorder, recurrent, unspecified ([facility]) 12/31/2022 Microcytic anemia 01/06/2024 Mild congestive heart failure ([facility]) 03/25/2024 Muscle weakness (generalized) 12/31/2022 Nausea and vomiting 03/25/2024 Neck pain Nicotine dependence, unspecified, uncomplicated 12/31/2022 Nutritional deficiency, unspecified 08/27/2023 Obesity Obesity OM (onychomycosis) Osteoarthritis of left hip 03/25/2024 Osteoporosis ([facility]) Osteoporosis ([facility]) Personal history of transient ischemic attack (TIA), and cerebral infarction without residual deficits 12/31/2022 Physical deconditioning 03/25/2024 Plantar verruca Pneumonia of right lower lobe due to infectious organism 02/19/2024 Polyneuropathy, unspecified 08/20/2023 Pulmonary hypertension ([facility]) 12/31/2022 S/P right coronary artery (RCA) stent [...] mouth Daily, Disp: 90 tablet, Rfl: 2 Vrebnjnpejl-Zkpeiqiuz-Fhwcmy (Trelegy Ellipta) 100-62.5-25 MCG/ACT aerosol powder , Inhale 1 puff in the morning., Disp: 1 each, Rfl: 3 Rfflohqoxwn-Lhbhgebbt-Ltavid (Trelegy Ellipta) 200-62.5-25 MCG/ACT aerosol powder , [...] Disp: 90 tablet, Rfl: 3 nystatin (Mycostatin) [id number] UNIT/GM powder, Apply topically 2 (two) times [...] Insecurity: No Food Insecurity (02/19/2024) [facility] Hunger Scre[facility] Within the past 12 months we worried whether our food would run out before we got money to buy more.: Never True Within the past 12 months the food we bought just didn't last and we didn't have money to get more.: Never True Transportation Needs: No Transportation Needs (02/19/2024) [facility] Lack of Transportation (Medical): No Lack of Transportation (Non-Medical): No Physical Activity: Not on file Stress: Not on file Social Connections: Not on file Intimate Partner Violence: Not on file Housing Stability: Low Risk (02/19/2024) [facility] Housing Instability Are you worried or concerned [...] well as Achilles tendon with negative palpable [place] REPORT: Verbal order for ultrasound [...] Kalyan Barboza DPM documented in this encounter [facility] 06-22-2024 Telephone encounter Note Justina nick [facility] 06-22-2024 Miscellaneous Notes Yennyraza sent documented in this encounter [facility] 03-17-2024 History of Present illness Narrative Subjective [...] to above hospitalization she was hospitalized at [place] and discharged February 16, 2024 with concern [...] at baseline Recent treatment for pneumonia at [facility] (discharged on cefdinir and azithromycin) History [...] failure with hypoxia, on home O2 therapy ([facility]) 3. Former cigarette smoker 4. Abnormal CT of the chest 5. 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 [address] [place] [address] Hospitalist Progress Note Signed Patient: Gera Perdue MR#: [id number] : 1945 Acct:[id number] Age/Sex: 78 / F Adm Date: 4 Loc: 3T Room: [address] [place] [address] Type: ADM IN Attending Dr: Lucho Grullon [...] <Electronically signed by Lucho Grullon MD> 02/16/241911 [facility] Work Phone: 1(870) 104-974604-21-2024 Progress note Author Lucho Grullon [facility] February 16, 2024 12:09am Note Date/Time February 15, 2024 3:0 4pm [address] Progress Note Signed Patient: Gera Perdue MR#: [id number] : 1945 Acct:[id number] Age/Sex: 78 / F Adm Date: 4 Loc: 3T Room: [address] [place] [address] Type: ADM IN Attending Dr: Lucho Grullon [...] signed by Lucho Grullon MD> 02/16/24 0009 [facility] Work Phone: 1(515) 523-275104-20-2024 History and physical note Author Lucho Grullon [facility] February 15, 2024 12:58am Note Date/Time February 14, 2024 5:[address] [facility] [address] [place] [address] Hospitalist H&P Signed Patient: Gera Pedrue MR#: [id number] : 1945 Acct:[id number] Age/Sex: 78 / F Adm Date: 4 Loc: Room: [address] [place] [address] Type: ADM IN Attending Dr: Lucho Grullon [...] care Discussed with:?the medical team, the patient [facility] Medical History Intertrochanteric fracture of left [...] % (Auto) 23.7 % (.) 02/14/24 11:39 [place] % (Auto) 12.3 % (.) 02/14/24 11:39 Eos % (Auto) 0.4 % (.) 02/14/24 11:39 Baso % (Auto) 0.9 % (.) 02/14/24 11:39 Nucleat RBC Rel Count 0.1 /100 WBC (0-0.5) 02/14/24 11:39 Neut # (Auto) 8.5 x10E3/uL (1.8-7.7) H 02/14/24 11:39 Lymph # (Auto) 3.2 x10E3/uL (1.00-4.8) 02/14/24 11:39 [place] # (Auto) 1.7 x10E3/uL (0.0-0.8) H 02/14/24 [...] pH 5.5 (5.0-9.0) 02/14/24 11:50 Ur Specific [place] 1.024 (1.001-1.030) 02/14/24 11:50 Urine Protein 30 [...] signed by Lucho Grullon MD> 02/15/24 0055 [facility] Work Phone: 1(404) 614-134604-15-2024 History of Present illness Narrative* Jenna Engle [...] stage IIIb 5. Patient was transferred to [facility] from [facility] for nephrology consultation for ARTURO on CKD along with hyperkalemia. This occurred in September 2023. Prior to that she had been living [facility], and has been in and out of [facility] on multiple occasions, being treated [...] redirect to the Timeline version of the [employer] Smart[employer]. Wt Readings from Last 3 Encounters: [...] smoker 01/06/2024 Frequent UTI 01/06/2024 Angina pectoris ([facility]) 12/04/2023 Coronary artery disease 12/04/2023 Dyspnea 12/04/2023 Essential hypertension 12/04/2023 Hyperlipidemia, mixed 12/04/2023 Assessment: 1. Shortness of breath Follow Up In Cardiology 2. Coronary artery disease involving kashia coronary artery of kashia heart without angina pectoris 3. History of [...] further questions arise, Sincerely, Jenna Engle MD [facility] Follow up : prn Scribe Attestation By [...] exam, discussion and plan. documented in this [facility] Work Phone: 1(685) 345-613204-15-2024 Instructions* Patient Instructions* Hoa Buck LPN - [...] ordered as needed only [facility] Phone: 1(425) 281-958104-04-2024 Hospital Discharge instructions Patient Education 01/30/2024 14:50:25 [...] Treatment for this condition includes: Antibiotic medicine. Gzxb-fho-oboqkod medicines to treat discomfort. Drinking enough water [...] Follow these instructions at home: Medicines Take dayp-rkn-iacvetz and prescription medicines only as told by [...] provider. Document Revised: 05/26/2021 Document Reviewed: 05/26/2021 [employer] Patient Education 2022 [employer]. 01/30/2024 14:50:24 Urinary Incontinence Urinary Incontinence Urinary [...] (electrical nerve stimulation). ?For women, using a biomedical equipment technician to prevent urine leaks. This is a [...] right after experiencing incontinence. General instructions Take loui-ihd-qylchih and prescription medicines only as told by [...] important. Where to find more information [place] of Diabetes and Digestive and Kidney Diseases: www.niddk.nih.gov [place] [employer] Association: www.urologyhealth.org Contact a health care [...] provider. Document Revised: 05/19/2021 Document Reviewed: 05/19/2021 [employer] Patient Education 2022 [employer]. 01/30/2024 14:50:21 Overactive Bladder, Adult Overactive Bladder, [...] your health care provider. General instructions Take wbfo-qxa-lwwvsdh and prescription medicines only as told by [...] provider. Document Revised: 07/03/2021 Document Reviewed: 07/03/2021 [employer] Patient Education 2022 [employer]. Follow Up Care 01/13/2024 09:25:34 With:CHIP Ponce APRN, Renae Delaney, JYOTI, URL Address: When: Unknown Comments:pending cysto/UD [facility] 04-04-2024 Evaluation + Plan note Diagnostic Tests Pending * Urine Culture 01/30/24 [facility]03-11-2024 History of Present illness Narrative* Jenna Engle [...] have been reviewed. Reviewed extensive records from [facility].. Past Medical History: 1. Longstanding nicotine dependence with COPD, currently hypoxemic respiratory failure on oxygen. 2. Primary hypertension 3. Obstructive sleep apnea 4. Chronic kidney disease stage IIIb 5. Patient was transferred to [facility] from [facility] for nephrology consultation for ARTURO on CKD along with hyperkalemia. This occurred in September 2023. Prior to that she had been living [facility], and has been in and out of [facility] on multiple occasions, being treated [...] 2 views; Future Coronary artery disease involving kashia coronary artery of kashia heart without angina pectoris Stage 3b chronic kidney disease (CMS/HCC) Microcytic anemia History of PTCA Essential hypertension Hyperlipidemia, mixed Obstructive sleep apnea syndrome Chronic respiratory failure with hypoxia (CMS/HCC) Frequent UTI BMI 32.0-32.9,adult Cough with expectoration Current smoker 1. Shortness of breath 2. Coronary artery disease involving kashia coronary artery of kashia heart without angina pectoris 3. Stage 3b chronic kidney disease (CMS/HCC) 4. Microcytic anemia 5. History of PTCA 6. Essential hypertension 7. Hyperlipidemia, mixed 8. Obstructive sleep apnea syndrome 9. Chronic respiratory failure with hypoxia (CMS/HCC) 10. Frequent UTI 11. BMI 32.0-32.9,adult 12. Cough with expectoration 13. Current smoker Patient with multiple comorbidities, atherosclerotic kashia vessel coronary artery disease and riskfactors, recent [...] to smoke. She has history of atherosclerotic kashia vessel coronary artery disease with intolerance to [...] further questions arise, Sincerely, Jenna Engle MD [facility] Scribe Attestation By signing my name below, [...] exam, discussion and plan. [facility] Work Phone: 1(777) 711-431903-11-2024 Instructions* Patient Instructions* Yaquelin Garcia LPN - [...] two weeks then stop [facility] Work Phone: 1(802) 998-318102-12-2024 History of Present illness Narrative* Lilliam Cheek, GAS LEAK INSPECTOR HELPER - 12/09/2023 11:00 AM EST Subjective Patient ID: Gera Perdue (: 1945) is a 78 y.o. female who presents for Hospital Follow-up. HPI Pt presents and daughter present for hospital follow up. Pt was admitted to [facility] in early September for ARTURO, UTI, and sepsis. Patient was then discharged to the [facility] in [place]. Pt was released from the [facility] on 11/28/2023. She is supposed to be getting HH however the company they were r eferred to is short staffed so her family has been caring for her. Today patient has complaints of shortness of breath and bilateral leg swelling. Pt denies urinary symptoms. She is currently finishing her Levaquin as she was started on at the [facility]. 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) Carotid [...] Recent Results (from the past 2016 hour(s)) [facility] CULTURE URINE Collection Time: 09/22/23 12:00 PM Result Value Ref Range [facility] CULTURE URINE O:KLEPNE Isolated [facility] CULTURE URINE Urine Culture Buhl Count [facility] CULTURE URINE >100,000 CFU/ml [facility] [...] List Items Addressed This Visit Essential hypertension (CMS/[facility]) Relevant Orders CBC and differential Comprehensive metabolic panel Hyperlipidemia ([facility]) Stage 3a chronic kidney disease (HCC) ([facility]) Relevant Orders Urinalysis with microscopic Magnesium SOB (shortness of breath) - Primary Hospital discharge follow-up Other Visit Diagnoses Wheezing Urinary tract bacterial infections Relevant Orders Urinalysis with microscopic Urine culture (clean catch) Sepsis with acute renal failure without septic shock, due to unspecified organism, unspecified acute renal failure type ([facility]) Medication management Patient presents today with daughter for hospital/senior care follow up. Patient was admitted to [facility] (all hospital records are in Care Everywhere and were reviewed prior to and during appt). With UTI, ARTURO and sepsis. She did receive IV antibiotics through a PICC line which has since been removed. She was discharged to the [facility] for senior care for three weeks and was discharged on11/28/2023. Patient is currently finishing oral Levaquin. Patient denies urnary symptoms or fevers today. Patient does have complaints of leg swelling and shortness of breath. Assessment does consist of wheezing and rhonchi. Daughter did bring a large bag with multiple medications that needed reviewed and sorted out. This GAS LEAK INSPECTOR HELPER did review each medication and compared it to the discharge summary from the [facility]. Each medication was discussed and placed in proper labeled bags to assist in the proper set up at home. Patient does have an order for however the company does not have enough staff. I am going to send an order to [facility] as this patient needs and requires a nurse, aide, rn social services and PT. CCM will also be consulted. Patient does discuss concerns of a prolapsed bladder being apossible cause of the UTI's which this does need assessed in a timely manner. Referral sent to TEACHING FELLOW.Advised daughter to call office within 5-7 days if she has not heard anything to address the above r eferrals. Patient is currently supposed to be taking Prednisone 20 mg a day which she has not been doing. This was given at the [facility]. Due to the wheezing and shortness of breath I advised they to 40 mg a day for 3 days and finish the rest of the 20 mg a day until finished. Patient and daughter instructed to call office with any questions or to seek ER if symptoms worsen. Patient does have an infectious disease follow up on 12/02/2023 and telephoto engineer on 01/06/2024. Patient will return to [...] breathing machine I will address this with [facility]. Health Maintenance Topic Date Due Diabetes: [...] follow up with labs. documented in this encounterDe[facility] [id number] Miscellaneous Notes* Telephone Encounter - Yvonne Kelly RN - 11/12/2023 2:42 PM EST Called Alethea-Patient's daughter back after r/s hospital followup with Dr Galicia for 11-22-2023. Our office does not participate with her Mom's insurance-[facility] Dual Complete. Appt cancelled. Alethea to call her Mom's [facility] Dual Complete Customer Service to see what Ellen GUZMAN is on her plan. Alethea to call office back so we can send a referral. [facility] Telephone encounter Note* Telephone Encounter - Yvonne Kelly RN - 11/12/2023 2:42 PM EST Called Alethea-Patient's daughter back after r/s hospital followup with Dr Galicia for 11-22-2023. Our office does not participate with her Mom's insurance-[facility] Dual Complete. Appt cancelled. Alethea to call her Mom's [facility] Dual Complete Customer Service to see what Ellen GUZMAN is on her plan. Alethea to call office back so we can send a referral. [facility]01-16-2024 Miscellaneous Notes* Telephone Encounter - Nirmala Shirley - 11/12/2023 10:18 AM EST ALETHEA IS CALLING SINCE PT TESTED POSITIVE FOR COVID. PLEASE CALL AND ADVISE ABOUT THE HOSPITAL DISCHARGE FOLLOW UP SHE CAN BE REACHED AT [phone] * Telephone Encounter - Yvonne Kelly RN - 11/12/2023 10:18 AM EST Patient is in isolation until 11-17-2023. Appt r/s with Dr Galicia for 10:30a documented in this encounterK[facility]01-16-2024 Telephone encounter Note* Telephone Encounter - Nirmala Shirley - 11/12/2023 10:18 AM EST ALETHEA IS CALLING SINCE PT TESTED POSITIVE FOR COVID. PLEASE CALL AND ADVISE ABOUT THE HOSPITAL DISCHARGE FOLLOW UP SHE CAN BE REACHED AT [phone] [facility] ebindle [id number] Telephone encounter Note* Telephone Encounter - Yvonne Kelly RN - 11/12/2023 10:18 AM EST Patient is in isolation until 11-17-2023. Appt r/s with Dr Galicia for 10:30a [facility] [id number] Miscellaneous Notes* Telephone Encounter - Avtar Ortega - 10/30/2023 12:37 PM EST New patient/Hospital Follow Up DX: Sleep Apnea Scheduled 01/10/24 w/ Dr. Gallagher [facility] Paperwork sent: 10/30/23. Please send paperwork to: [employer] @ [employer] [address] [place] [address] Ins verified (OON notification); NO WORKMAN'S COMP; NO ACCIDENT documented in this encounterK[facility]01-03-2024 Telephone encounter Note* Telephone Encounter - Amrit Ortega - 10/30/2023 12:37 PM EST New patient/Hospital Follow Up DX: Sleep Apnea Scheduled 01/10/24 w/ Dr. Gallagher [facility] Paperwork sent: 10/30/23. Please send paperwork to: [employer] @ [address] [facility] [id number] Ins verified (OON notification); NO WORKMAN'S COMP; NO ACCIDENT [facility]10-24-2023 Discharge summary Author Jesus Alberto Aquino [facility] August 20, 2023 1:32pm Note Date/Time August 20, 2023 1 :32pm [facility] [address] [place] [address] Discharge Summary Signed Patient: Gera Perdue MR#: [id number] : 1945 Acct:[id number] Age/Sex: 77 / F Adm Date: 3 Loc: Room: [address] [place] [address]: Jesus Alberto Aquino MD Copies [...] by Jesus Alberto Aquino MD> 08/20/23 1332 [facility] Work Phone: 1([phone]) 802-407110-23-2023 Progress note Author Jesus Alberto Aquino [facility] August 19, 2023 2:43pm Note Date/Time August 19, 2023 2 :43pm [facility] [address] [place] [address] Hospitalist Progress Note Signed Patient: Gera Perdue MR#: [id number] : 1945 Acct:[id number] Age/Sex: 77 / F Adm Date: 3 Loc: 3T Room: [address] [place] [address] Type: ADM IN Attending Dr: Jesus Alberto [...] signed by Jesus Alberto Aquino MD> 08/19/231442 [facility] Work Phone: 1(872) 952-446410-22-2023 Progress note Author Jesus Alberto Aquino [facility] August 18, 2023 1:49pm Note Date/Time August 18, 2023 1 :49pm [facility] [address] [place] [address] Hospitalist Progress Note Signed Patient: Gera Perdue MR#: [id number] : 1945 Acct:[id number] Age/Sex: 77 / F Adm Date: 3 Loc: Room: [address] [place] [address] Type: ADM IN Attending Dr: Jesus Alberto [...] signed by Jesus Alberto Aquino MD> 08/18/239 [facility] Work Phone: [phone]) 532-602210-21-2023 History and physical note Author Jesus Alberto Aquino [facility] August 17, 2023 7:50pm Note Date/Time August 17, 2023 7 :50pm [facility] [address] [place] [address] Hospitalist H&P Signed Patient: Gera Perdue MR#: [id number] : 1945 Acct:[id number] Age/Sex: 77 / F Adm Date: 3 Loc: Room: [address] [place] [address] Type: ADM IN Attending Dr: Jesus Alberto [...] apnea Nephrolithiasis Pulm hypertension GERD Hypertension Dyslipidemia [facility] Medical History (Updated 08/17/23 @ 19:01 [...] % (Auto) 7.8 % (.) 08/17/23 16:05 [place] % (Auto) 5.5 % (.) 08/17/23 16:05 Eos % (Auto) 0.0 % (.) 08/17/23 16:05 Baso % (Auto) 0.2 % (.) 08/17/23 16:05 Nucleat RBC Rel Count 0.1 /100 WBC (0-0.5) 08/17/23 16:05 Neut # (Auto) 25.4 x10E3/uL (1.8-7.7) H 08/17/23 16:05 Lymph # (Auto) 2.3 x10E3/uL (1.00-4.8) 08/17/23 16:05 [place] # (Auto) 1.6 x10E3/uL (0.0-0.8) H 08/17/23 [...] by Jesus Alberto Aquino MD> 08/17/23 1950 [facility] Work Phone: 1(355) 610-685710-21-2023 History and physical note Author Jesus Alberto Aquino [facility] August 17, 2023 7:50pm Note Date/Time August 17, 2023 7 :50pm [facility] [address] [place] [address] Hospitalist H&P Signed Patient: Gera Perdue MR#: [id number] : 1945 Acct:[id number] Age/Sex: 77 / F Adm Date: 3 Loc: Room: [address] [place] [address] Type: ADM IN Attending Dr: Jesus Alberto [...] apnea Nephrolithiasis Pulm hypertension GERD Hypertension Dyslipidemia [facility] Medical History (Updated 08/17/23 @ 19:01 [...] % (Auto) 7.8 % (.) 08/17/23 16:05 [place] % (Auto) 5.5 % (.) 08/17/23 16:05 Eos % (Auto) 0.0 % (.) 08/17/23 16:05 Baso % (Auto) 0.2 % (.) 08/17/23 16:05 Nucleat RBC Rel Count 0.1 /100 WBC (0-0.5) 08/17/23 16:05 Neut # (Auto) 25.4 x10E3/uL (1.8-7.7) H 08/17/23 16:05 Lymph # (Auto) 2.3 x10E3/uL (1.00-4.8) 08/17/23 16:05 [place] # (Auto) 1.6 x10E3/uL (0.0-0.8) H 08/17/23 [...] by Jesus Alberto Aquino MD> 08/17/23 1950 [facility] Work Phone: 1(602) 607-544609-17-2023 Discharge summary Author Jolanta Mckenzie [facility] July 14, 2023 11:16am Note Date/Time July 14, 2023 11:16am [facility] [address] [place] [address] Discharge Summary Signed Patient: Gera Perdue MR#: [id number] : 1945 Acct:[id number] Age/Sex: 77 / F Adm Date: 3 Loc: Room: [address] [place] [address]: Jolanta Mckenzie MD Copies to: [...] Physical therapy wasconsulted with recommendation for senior care facility which patient is refusing understanding the [...] % (Auto) 69.9, Lymph % (Auto) 22.1, [place] % (Auto) 7.3, Eos % (Auto) 0.4, Baso % (Auto) 0.3, Nucleat RBC Rel Count 0.1, Neut # (Auto) 13.5 H, Lymph # (Auto) 4.3, [place] # (Auto) 1.4 H, Eos # (Auto) [...] signed by Jolanta Mckenzie MD> 07/14/23 1116 [facility] Work Phone: 1(460) 659-451009-16-2023 Progress note Author Jolanta Mckenzie [facility] July 13, 2023 1:59pm Note Date/Time July 13, 2023 10:40am [facility] [address] [place] [address] Hospitalist Progress Note Signed with Addenda Patient: Gera Perdue MR#: [id number] : 1945 Acct:[id number] Age/Sex: 77 / F Adm Date: 3 Loc: Room: [address] [place] [address] Type: ADM IN Attending Dr: Jolanta Mckenzie [...] patient also on steroid. Discussed regarding senior care facility she has not decided yet. Give [...] <Electronically signed by Jolanta Mckenzie MD> 07/13/23 3598 [facility] Work Phone: 1(960) 713-993309-15-2023 Progress note Author Jolanta Mckenzie [facility] July 12, 2023 3:00pm Note Date/Time July 12, 2023 2:16pm [facility] [address] [place] [address] Hospitalist Progress Note Signed with Ling Patient: Gera Perdue MR#: [id number] : 1945 Acct:[id number] Age/Sex: 77 / F Adm Date: 3 Loc: Room: [address] [place] [address] Type: ADM IN Attending Dr: Jolanta Mckenzie [...] switch to oral prednisone. PT recommended senior care facility which patient is refusing with plan [...] 1,000 Ml IV 07/09/24 13:59 75 mls/hr .[id number] JERILYN Administration Ceftriaxone Sodium 1 gm in [...] <Electronically signed by Jolanta Mckenzie MD> 07/12/23 1452 [facility] Work Phone: 1(268) 388-801509-14-2023 Progress note Author Jolanta Mckenzie [facility] July 11, 2023 12:47pm Note Date/Time July 11, 2023 10:10am [facility] [address] [place] [address] Hospitalist Progress Note Signed with Ling Patient: Gera Perdue MR#: [id number] : 1945 Acct:[id number] Age/Sex: 77 / F Adm Date: 3 Loc: Room: [address] [place] [address] Type: ADM IN Attending Dr: Jolanta Mckenzie [...] 1,000 Ml IV 07/09/24 13:59 75 mls/hr .[id number] JERILYN Administration Ceftriaxone Sodium 1 gm in [...] signed by Jolanta Mckenzie MD> 07/11/23 1246 [facility] Work Phone: 1(236) 523-654609-13-2023 History and physical note Author Jolanta Mckenzie [facility] July 10, 2023 1:50pm Note Date/Time July 10, 2023 1:44pm [facility] [address] [place] [address] Hospitalist H&P Signed Patient: Gera Perdue MR#: [id number] : 1945 Acct:[id number] Age/Sex: 77 / F Adm Date: 3 Loc: Room: [address] [place] [address] Type: ADM IN Attending Dr: Jolanta Mckenzie [...] negative unless noted below or in HPI [facility] Medical History Arthritis COPD (chronic obstructive [...] % (Auto) 31.5 % (.) 07/10/23 08:44 [place] % (Auto) 6.5 % (.) 07/10/23 08:44 Eos % (Auto) 0.4 % (.) 07/10/23 08:44 Baso % (Auto) 0.2 % (.) 07/10/23 08:44 Nucleat RBC Rel Count 0.1 /100 WBC (0-0.5) 07/10/23 08:44 Neut # (Auto) 13.1 x10E3/uL (1.8-7.7) H 07/10/23 08:44 Lymph # (Auto) 6.7 x10E3/uL (1.00-4.8) H 07/10/23 08:44 [place] # (Auto) 1.4 x10E3/uL (0.0-0.8) H 07/10/23 [...] pH 8.5 (5.0-9.0) 07/10/23 08:44 Ur Specific [place] 1.022 (1.001-1.030) 07/10/23 08:44 Urine Protein 30 [...] signed by Jolanta Mckenzie MD> 07/10/23 1350 [facility] Work Phone: [phone] 137-337803-06-2023 Discharge summary Author Jesus Alberto Aquino [facility] December 31, 2022 3:43pm Note Date/Time December 31, 2022 11:[address] [facility] [address] [place], [place] [id number] Discharge Summary Signed Patient: Gera Perdue MR#: [id number] : 1945 Acct:[id number] Age/Sex: 77 / F Adm Date: 3 Loc: 4N Room: 3D1757-[address]: Jesus Alberto Aquino MD Copies [...] occurred, and patient was discharged to senior care facility in stable condition on December 31. [...] % (Auto) N/A, Lymph % (Auto) N/A, [place] % (Auto) N/A, Eos % (Auto) N/A, Baso % (Auto) N/A, Nucleat RBC Rel Count N/A, Neut # (Auto) N/A, Lymph # (Auto) N/A, [place] # (Auto) N/A, Eos # (Auto) N/A, [...] by Jesus Alberto Aquino MD> 12/31/22 1548 [facility] Work Phone: [phone]) 550-112503-05-2023 Progress note Author Carla Hagan [facility] December 30, 2022 9:53am Note Date/Time December 30, 2022 9:[address] [facility] [address] [place] [address] Hospitalist Progress Note Signed Patient: Gera Perdue MR#: [id number] : 1945 Acct:[id number] Age/Sex: 77 / F Adm Date: 3 Loc: 4N Room: 9Y9668-5 Type: ADM IN Attending Dr: Carla Hagan [...] place, time and person. Morbidly obese HEENT: [place] conjunctiva and NL buccal mucosa Neck: Supple, [...] Plan is to discharge patient to senior care unit for short period of time for [...] signed by Carla Hagan MD> 12/30/22 0953 [facility] Work Phone: [phone]) 619-959403-04-2023 Progress note Author Carla Hagan [facility] December 29, 2022 10:00am Note Date/Time December 29, 2022 10:[address] [facility] [address] [place] [address] Hospitalist Progress Note Signed Patient: Gera Perdue MR#: [id number] : 1945 Acct:[id number] Age/Sex: 77 / F Adm Date: 3 Loc: 4N Room: 8W3019-8 Type: ADM IN Attending Dr: Carla Hagan [...] place, time and person. Morbidly obese HEENT: [place] conjunctiva and NL buccal mucosa Neck: Supple, [...] signed by Carla Hagan MD> 12/29/22 1000 [facility] Work Phone: [phone] 131-517003-03-2023 Progress note Author Carla Hagan [facility] December 28, 2022 11:14am Note Date/Time December 28, 2022 9:[address] [facility] [address] [place] [address] Hospitalist Progress Note Signed Patient: Gera Perdue MR#: [id number] : 1945 Acct:[id number] Age/Sex: 77 / F Adm Date: 3 Loc: 4N Room: [address] [place] [address] Type: ADM IN Attending Dr: Carla Hagan [...] Ampul.Neb INHALATION 12/28/23 08:59 3 ml BID EJRILYN Administration Atorvastatin Calcium 40 mg 12/27/22 21:00 [...] cardiac arrhythmia.? Patient will likely require senior care facility on discharge. Patient is medically cleared for discharge pending placement approval. The patient would likely need to have additional work-up, investigation and therapeutic intervention but will be determined based on the clinical progression and follow-up test result Documented By: Carla Hagan MD 12/28/22 0918 Signed By: <Electronically signed by Carla Hagan MD> 12/28/22 1114 <Electronically signed by DO SEAN Armas> 12/28/22 1048 [facility] Work Phone: 1(120) 896-753603-02-2023 Progress note Author Carla Hagan [facility] December 27, 2022 12:40pm Note Date/Time December 27, 2022 9:[address] [facility] [address] [place], [place] [address] Hospitalist Progress Note Signed Patient: Gera Perdue MR#: [id number] : 1945 Acct:[id number] Age/Sex: 77 / F Adm Date: 3 Loc: 4N Room: 8G4271-5 Type: ADM IN Attending Dr: Carla Hagan [...] 3 Ml Ampul.Neb INHALATION 12/27/23 08:59 BID [facility] Atorvastatin Calcium 40 mg 12/27/22 21:00 Atorvastatin 40 Mg Tablet PO 12/27/23 20:59 QPM [facility] Budesonide 0.5 mg 12/27/22 06:00 Budesonide 0.5 Mg/2 Ml Ampul.Neb INHALATION 12/27/23 05:59 BID@0600,1800 [facility] Bupropion HCl 300 mg 12/27/22 09:00 Bupropion 300 Mg Tab.Er.24h PO 12/27/23 08:59 QAM [facility] Calcium Carbonate 600 mg 12/27/22 09:00 Calcium Carbonate 500 Mg Tablet PO 12/27/23 08:59 DAILY [facility] Clopidogrel Bisulfate 75 mg 12/27/22 09:00 Clopidogrel Bisulfate 75 Mg Tablet PO 12/27/23 08:59 DAILY [facility] Heparin Sodium (Porcine) 5,000 unit 12/27/22 06:00 12/27/22 06:14 Heparin 5,000 Unit/Ml Vial SUBCUT 12/27/23 05:59 5,000 unit Q8HR [facility] Administration Hydromorphone HCl 0.5 mg 12/27/22 03:58 Hydromorphone 0.5 Mg/0.5 Ml Syringe IV-PUSH Q4H PRN Pain Scale 8 - 10 Lisinopril 5 mg 12/27/22 09:00 Lisinopril 5 Mg Tablet PO 12/27/23 08:59 DAILY [facility] Metoprolol Succinate 50 mg 12/27/22 09:00 Metoprolol Succinate 50 Mg Tab.Er.24h PO 12/27/23 08:59 DAILY [facility] Nicotine 1 each 12/27/22 00:30 12/27/22 00:48 Nicotine Patch 14 Mg/24hr 1 Each Patch.Td24 TRANSDERML 01/08/23 09:01 1 each DAILY [facility] Administration Nystatin 1 applic 12/27/22 00:30 12/27/22 00:48 Nystatin 100,000 Unit/Gram Powder 15 Gm Bottle TOPICAL 12/27/23 00:29 1 applic BID [facility] Administration Ondansetron HCl 4 mg 12/26/22 23:41 Ondansetron 4 Mg/2 Ml Vial IV-PUSH 12/26/23 23:40 Q8H PRN Nausea And Vomiting Pantoprazole Sodium 40 mg 12/27/22 09:00 Pantoprazole 40 Mg Tablet. PO 12/27/23 08:59 DAILY [facility] Paroxetine HCl 40 mg 12/27/22 09:00 Paroxetine 20 Mg Tablet PO 12/27/23 08:59 QAM [facility] Pregabalin 75 mg 12/27/22 09:00 Pregabalin 75 [...] 15 Gm Tube TOPICAL 12/27/23 08:59 BID [facility] Vitamin D 50 mcg 12/27/22 09:00 Cholecalciferol 25 Mcg (1,000 Units) Tablet PO 12/27/23 08:59 DAILY [facility] A&P - Hospitalist Assessment/Plan (1) Fall: (2) [...] cardiac arrhythmia.? Patient will likely require senior care facility on discharge. Documented By: Carla Hagan MD 12/27/22 7170 Signed By: <Electronically signed by Carla Hagan MD> 12/27/22 1240 <Electronically signed by DO SEAN Armas> 12/27/22 7513 [facility] Work Phone: [phone] History and physical note Author Jolanta Mckenzie [facility] December 27, 2022 12:32am Note Date/Time December 26, 2022 11:[address] [facility] [address] [place] [address] Hospitalist H&P Signed with Ling Patient: Gera Perdue MR#: [id number] : 1945 Acct:[id number] Age/Sex: 77 / F Adm Date: 3 Loc: 4N Room: [address] [place] [address] Type: ADM IN Attending Dr: Jolanta Mckenzie [...] cardiac arrhythmia. Patient will likely require senior care facility on discharge. Addendum Documented By: Jolanta [...] % (Auto) 24.8 % (.) 12/26/22 19:36 [place] % (Auto) 10.1 % (.) 12/26/22 19:36 Eos % (Auto) 1.1 % (.) 12/26/22 19:36 Baso % (Auto) 0.5 % (.) 12/26/22 19:36 Nucleat RBC Rel Count 0.1 /100 WBC (0-0.5) 12/26/22 19:36 Neut # (Auto) 7.6 x10E3/uL (1.8-7.7) 12/26/22 19:36 Lymph # (Auto) 3.0 x10E3/uL (1.00-4.8) 12/26/22 19:36 [place] # (Auto) 1.2 x10E3/uL (0.0-0.8) H 12/26/22 [...] signed by MD SEAN Mann> 12/27/22 002 [facility] Work Phone: [phone] NoteHISTORY: Bone density screening. COMPARISON: 08/03/2020 PROCEDURE: [...] signed by Edgar Hooper on 05/01/2022 [id number] Evaluation note* Encounter Date Diagnosis Assessment Notes Treatment Notes Treatment Clinical Notes Mar, Major depressive disorder, recurrent severe without psychotic features (ICD-10 - F33.2) [facility] Other 03-24-2022 Evaluation note* Encounter Date Diagnosis Assessment Notes Treatment Notes Treatment Clinical Notes Dec, GERD (gastroesophageal reflux disease) (ICD-10 - K21.9) [facility] Other Discharge summary Author Jesus Alberto Aquino [facility] December 31, 2022 3:43pm Note Date/Time December 31, 2022 11:[address] [facility] [address] [place] [address] Discharge Summary Signed Patient: Gera Perdue MR#: [id number] : 1945 Acct:[id number] Age/Sex: 77 / F Adm Date: 3 Loc: Room: [address] [place] [address]: Jesus Alberto Aquino MD Copies [...] occurred, and patient was discharged to senior care facility in stable condition on December 31. [...] % (Auto) N/A, Lymph % (Auto) N/A, [place] % (Auto) N/A, Eos % (Auto) N/A, Baso % (Auto) N/A, Nucleat RBC Rel Count N/A, Neut # (Auto) N/A, Lymph # (Auto) N/A, [place] # (Auto) N/A, Eos # (Auto) N/A, [...] by Jesus Alberto Aquino MD> 12/31/22 1543 [facility] Work Phone: Discharge summary Author Jolanta Mckenzie [facility] July 14, 2023 11:16am Note Date/Time July 14, 2023 11:16[address] [facility] [address] [place] [address] Discharge Summary Signed Patient: Gera Perdue MR#: [id number] : 1945 Acct:[id number] Age/Sex: 77 / F Adm Date: 3 Loc: Room: [address] [place] [address]: Jolanta Mckenzie MD Copies to: [...] Physical therapy wasconsulted with recommendation for senior care facility which patient is refusing understanding the [...] % (Auto) 69.9, Lymph % (Auto) 22.1, [place] % (Auto) 7.3, Eos % (Auto) 0.4, Baso % (Auto) 0.3, Nucleat RBC Rel Count 0.1, Neut # (Auto) 13.5 H, Lymph # (Auto) 4.3, [place] # (Auto) 1.4 H, Eos # (Auto) [...] signed by Jolanta Mckenzie MD> 07/14/23 1116 [facility] Work Phone: Discharge summary Author Michoacano Mckenzie [facility] February 17, 2024 4:57pm Note Date/Time February 17, 2024 4:[address] [facility] [address] [place], [place] [address] Discharge Summary Signed Patient: Gera Perdue MR#: [id number] : 1945 Acct:[id number] Age/Sex: 78 / F Adm Date: 4 Loc: Room: [address] [place] [address]: Michoacano Mckenzie MD Copies to: [...] physical and Occupational Therapy, who recommended senior care placement. Patient was very adamant that she [...] 4 1645 Signed By: <Electronically signed by Michocaano Mckenzie MD> 02/17/24 1657 [facility] Work Phone: Evaluation noteNo InformationNort [place] Other Evaluation noteNo assessment information available [facility] Work Phone: Evaluation note* Diagnosis Onset Date Resolution Status Accidental fall acute Head injury acute Inability to perform activities of daily living acute [facility] Work Phone: Evaluation note* Diagnosis Onset Date Resolution Status Accidental fall acute Acute hip pain acute Fall acute Head injury acute Inability to perform activities of daily living acute Physical deconditioning acut e [facility] Work Phone: Evaluation note* Diagnosis Onset Date Resolution Status Acute exacerbation of chroni c obstructive pulmonary disease acute CAD (coronary artery disease) acute Closed head injury acute Contusion of hip acute Fall acute Umbilical hernia acute UTI (urinary tract infection) acute [facility] Work Phone: Evaluation note* Diagnosis Onset Date Resolution Status Acute exacerbation of chroni c obstructive pulmonary disease acute CAD (coronary artery disease) acute Closed head injury acute Contusion of hip acute Fall acute Umbilical hernia acute UTI (urinary tract infection) acute Acute UTI acute ARTURO (acute kidney injury) ac jose rafael Weakness [facility] Work Phone: Evaluation note* Diagnosis SOB [...] bladder prolapse Pulmonary emphysema, unspecified emphysema type ([facility]/HCC) documented in this encounter [facility] Healthcare[facility] note* Diagnosis Shortness of breath Coronary artery disease involving kashia coronary artery of kashia heart without angina pectoris Stage 3b chronic kidney disease ([facility]/HCC) Microcytic anemia Unspecified iron deficiency anemia History of PTCA Postsurgical percutaneous transluminal coronary angioplasty status Essential hypertension Unspecified essential hypertension Hyperlipidemia, mixed Mixed hyperlipidemia Obstructive sleep apnea syndrome Obstructive sleep apnea (adult) (pediatric) Chronic respiratory failure with hypoxia (CMS/HCC) Frequent UTI Urinary tract infection, site not specified BMI 32.0-32.9,adult Cough with expectoration Cough Current smoker documented in this encounter [facility] Work Phone: Evaluation note* Diagnosis Shortness of breath documented in this encounter [facility] Work Phone: Evaluation note* Diagnosis Shortness of breath Coronary artery disease involving kashia coronary artery of kashia heart without angina pectoris History of PTCA Postsurgical percutaneous transluminal coronary angioplasty status Essential hypertension Unspecified essential hypertension Hyperlipidemia, mixed Mixed hyperlipidemia Obstructive sleep apnea syndrome Obstructive sleep apnea (adult) (pediatric) BMI 35.0-35.9,adult Current smoker Chronic hypoxemic respiratory failure (Multi) Chronic respiratory failure Encounter to discuss test results Other specified counseling documented in this encounter [facility] Work Phone: Evaluation note* Diagnosis Onset Date Resolution Status Nausea and vomiting acute Pneumonia acute UTI (urinary tract infection) acute [facility] Work Phone: Evaluation note* Diagnosis Onset Date Resolution Status CAD (coronary artery disease) acute GERD (gastroesophageal reflux disease) acute Nausea and vomiting acute Pneumonia acute UTI (urinary tract infection) acute COPD (chronic obstructive pulmonary disease) chronic [facility] Work Phone: Evaluation note* Diagnosis Panlobular emphysema (CMS/HCC)- Primary Other emphysema Stage 3a chronic kidney disease (HCC) (CMS/HCC) 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 (CMS/HCC) Mixed hyperlipidemia [...] tissues of limb documented in this encounter [facility] Healthcare[facility] note* Diagnosis Stage 3a chronic kidney disease (HCC) (CMS/HCC)- Primary Interstitial pulmonary disease, unspecified (CMS/HCC) Primary osteoarthritis involving multiple joints Morbid (severe) obesity due to excess calories (E66.01) 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 (CMS/HCC) Chronic heart failure with preserved ejection fraction (CMS/HCC) Centrilobular emphysema (CMS/HCC) Neural foraminal stenosis of lumbosacral spine Failed back surgical syndrome Mixed hyperlipidemia (CMS/HCC) Mixed hyperlipidemia Acute cystitis without hematuria Anemia due to stage 3a chronic kidney disease (HCC) (CMS/HCC) documented in this encounter [facility] Healthcare[facility] note* Diagnosis Failed back surgical syndrome Neural foraminal stenosis of lumbosacral spine documented in this encounter [facility] Healthcare[facility] note* Diagnosis Heel spur, right- Primary Venous insufficiency Unspecified venous (peripheral) insufficiency Onychomycosis Dermatophytosis of nail Toe pain, left Pain in soft tissues of limb Toe pain, right Pain in soft tissues of limb Right Achilles tendinitis documented in this encounter [facility] Healthcare[facility] note* Diagnosis Other specified disorders of synovium, left ankle and foot- Primary Right Achilles tendinitis Venous insufficiency Unspecified venous (peripheral) insufficiency documented in this encounter [facility] HealthcareEvaluation note* Diagnosis Chronic obstructive pulmonary disease with acute exacerbation (CMS-HCC)- Primary Sleep apnea, unspecified type Anxiety Anxiety state, unspecified Insomnia, unspecified type Closed fracture of sixth thoracic vertebra with routine healing, unspecified fracture morphology, subsequent encounter 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 documented in this encounter [facility] SystemEvaluation note* Diagnosis Chronic obstructive pulmonary disease with acute exacerbation (CMS-HCC)- Primary Pneumonia of right lower lobe due to infectious organism Gastroesophageal reflux disease without esophagitis Esophageal reflux Closed wedge compression fracture of T6 vertebra with routine healing, subsequent encounter Moderate episode of recurrent major depressive disorder (CMS-HCC) Encephalopathy, unspecified type documented in this encounter [facility]* Diagnosis Pneumonia of right lower lobe due to infectious organism- Primary Chronic obstructive pulmonary disease with acute exacerbation (CMS-HCC) Sleep apnea, unspecified type Moderate episode of recurrent major depressive disorder ([facility]-HCC) 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 Closed wedge compression fracture of T6 vertebra with routine healing, subsequent encounter documented in this encounter [facility]* Diagnosis Hospital discharge follow-up- Primary Other follow-up examination Chronic respiratory failure with hypoxia, on home O2 therapy ([facility]) Former cigarette smoker Personal history of tobacco use, presenting hazards to health Abnormal CT of the chest Nonspecific (abnormal) findings on radiological and other examination of other intrathoracic organs Longstanding persistent atrial fibrillation ([facility]-HCC) documented in this encounter [facility] note* Diagnosis Chronic obstructive pulmonary disease, unspecified COPD type ([facility]-HCC)- Primary documented in this encounter [facility] SystemHistory and physical note Author Jolanta Mckenzie [facility] December 27, 2022 12:32am Note Date/Time December 26, 2022 11:[address] [facility] [address] [place] [address] Hospitalist H&P Signed with Ling Patient: Gera Perdue MR#: [id number] : 1945 Acct:[id number] Age/Sex: 77 / F Adm Date: 3 Loc: 4N Room: [address] [place] [address] Type: ADM IN Attending Dr: Jolanta Mckenzie [...] cardiac arrhythmia. Patient will likely require senior care facility on discharge. Addendum Documented By: Jolanta [...] negative unless noted below or in [facility]PI [facility] Vacc[facility] for [facility]-19?: Yes Medical History [...] % (Auto) 24.8 % (.) 12/26/22 19:36 [place] % (Auto) 10.1 % (.) 12/26/22 19:36 Eos % (Auto) 1.1 % (.) 12/26/22 19:36 Baso % (Auto) 0.5 % (.) 12/26/22 19:36 Nucleat RBC Rel Count 0.1 /100 WBC (0-0.5) 12/26/22 19:36 Neut # (Auto) 7.6 x10E3/uL (1.8-7.7) 12/26/22 19:36 Lymph # (Auto) 3.0 x10E3/uL (1.00-4.8) 12/26/22 19:36 [place] # (Auto) 1.2 x10E3/uL (0.0-0.8) H 12/26/22 [...] signed by MD SEAN Mann> 12/27/22 0022 [facility] Work Phone: History and physical note Author Jolanta Mckenzie [facility] July 10, 2023 1:50pm Note Date/Time July 10, 2023 1:44pm [facility] [address] [place] [address] Hospitalist H&P Signed Patient: Gera Perdue MR#: [id number] : 1945 Acct:[id number] Age/Sex: 77 / F Adm Date: 3 Loc: Room: [address] [place] [address] Type: ADM IN Attending Dr: Jolanta Mckenzie [...] negative unless noted below or in HPI [facility] Medical History Arthritis COPD (chronic obstructive [...] % (Auto) 31.5 % (.) 07/10/23 08:44 [place] % (Auto) 6.5 % (.) 07/10/23 08:44 Eos % (Auto) 0.4 % (.) 07/10/23 08:44 Baso % (Auto) 0.2 % (.) 07/10/23 08:44 Nucleat RBC Rel Count 0.1 /100 WBC (0-0.5) 07/10/23 08:44 Neut # (Auto) 13.1 x10E3/uL (1.8-7.7) H 07/10/23 08:44 Lymph # (Auto) 6.7 x10E3/uL (1.00-4.8) H 07/10/23 08:44 [place] # (Auto) 1.4 x10E3/uL (0.0-0.8) H 07/10/23 [...] pH 8.5 (5.0-9.0) 07/10/23 08:44 Ur Specific [place] 1.022 (1.001-1.030) 07/10/23 08:44 Urine Protein 30 [...] signed by Jolanta Mckenzie MD> 07/10/23 1350 [facility] Work Phone: History general Narrative - [...] diverticulosis, >10cm removed. no anastamosis Dr Fonseca, [facility]. Surgical History EGD Surgical History colostomy 01/07 per [facility] Surgical History Bowel resection with reversal o f colostomy 02-25-2015 Surgical History SKIN BIOPSY X 2 ON FACE 6 Surgical History left IM nailing 09-02-20 Surgical History left hip FX 10/2020 Hospitalization History 6 child births Hospitalization History See Above Hospitalization History Kidney stones Hospitalization History [facility] [place] bowel obstruction 10/2019 Hospitalization History Fell/ UTI Hospitalization History [facility] pt fell left hip fr acture 10/2020 [facility] Other Hospital course Narrative No data available for this section [facility] Discharge instructions Additional Instructions Use the albuterol inhaler as prescribed here COPD exacerbation take prednisone as prescribed. Take Tylenol as needed for hip pain. Follow-up with your PCP for reevaluation in 5 to 7 days.[facility] Work Phone: Hospital Discharge instructions Additional [...] precautions [facility] Work Phone: Hospital Discharge instructionsAmbulatory Orders* [...] wraps to BLE. Change daily and prn -[facility] Work Phone: Hospital Discharge instructions Additional [...] precautions [facility] Work Phone: Hospital Discharge instructions No data available for this section [facility]ructionsNot on filedocumented in this encounter [facility] [...] * How to Wash Your Hands Properly ([place]) documented in this [facility] SystemProgress note Author Carla Hagan [facility] December 27, 2022 12:40pm Note Date/Time December 27, 2022 9:[address] [facility] [address] [place] [address] Hospitalist Progress Note Signed Patient: Gera Perdue MR#: [id number] : 1945 Acct:[id number] Age/Sex: 77 / F Adm Date: 3 Loc: 4N Room: [address] [place] [address] Type: ADM IN Attending Dr: Carla Hagan [...] 300 Mg Tab.Er.24h PO 12/27/23 08:59 QAM [facility] Calcium Carbonate 600 mg 12/27/22 09:00 Calcium Carbonate 500 Mg Tablet PO 12/27/23 08:59 DAILY [facility] Clopidogrel Bisulfate 75 mg 12/27/22 09:00 Clopidogrel Bisulfate 75 Mg Tablet PO 12/27/23 08:59 DAILY [facility] Heparin Sodium (Porcine) 5,000 unit 12/27/22 06:00 12/27/22 06:14 Heparin 5,000 Unit/Ml Vial SUBCUT 12/27/23 05:59 5,000 unit Q8HR JERILYN Administration Hydromorphone HCl 0.5 mg 12/27/22 03:58 Hydromorphone 0.5 Mg/0.5 Ml Syringe IV-PUSH Q4H PRN Pain Scale 8 - 10 Lisinopril 5 mg 12/27/22 09:00 Lisinopril 5 Mg Tablet PO 12/27/23 08:59 DAILY [facility] Metoprolol Succinate 50 mg 12/27/22 09:00 Metoprolol Succinate 50 Mg Tab.Er.24h PO 12/27/23 08:59 DAILY [facility] Nicotine 1 each 12/27/22 00:30 12/27/22 00:48 [...] 40 Mg Tablet. PO 12/27/23 08:59 DAILY [facility] [facility] Paroxetine HCl 40 mg 12/27/22 09:00 Paroxetine 20 Mg Tablet PO 12/27/23 08:59 QAM [facility] Pregabalin 75 mg 12/27/22 09:00 Pregabalin 75 Mg Capsule PO 06/25/23 08:59 BID [facility] Sodium Chloride 0 ml 12/26/22 19:02 12/26/22 [...] 15 Gm Tube TOPICAL 12/27/23 08:59 BID [facility] Vitamin D 50 mcg 12/27/22 09:00 Cholecalciferol 25 Mcg (1,000 Units) Tablet PO 12/27/23 08:59 DAILY [facility] A&P - Hospitalist Assessment/Plan (1) Fall: (2) [...] cardiac arrhythmia.? Patient will likely require senior care facility on discharge. Documented By: Carla Hagan MD 12/27/22 0857 Signed By: <Electronically signed by Carla Hagan MD> 12/27/22 1240 <Electronically signed by DO SEAN Armas> 12/27/22 1130 [facility] Work Phone: Progress note Author Carla Hagan [facility] December 28, 2022 11:14am Note Date/Time December 28, 2022 9:[address] [facility] [address] [place] [address] Hospitalist Progress Note Signed Patient: Gera Perdue MR#: [id number] : 1945 Acct:[id number] Age/Sex: 77 / F Adm Date: 3 Loc: 4N Room: [address] [place] [address] Type: ADM IN Attending Dr: Carla Hagan [...] cardiac arrhythmia.? Patient will likely require senior care facility on discharge. Patient is medically cleared [...] by DO RES Morena Armas> 12/28/22 1048 [facility] Work Phone: Progress note Author Carla Hagan [facility] December 29, 2022 10:00am Note Date/Time December 29, 2022 10:[address] [facility] [address] [place] [address] Hospitalist Progress Note Signed Patient: Gera Perdue MR#: [id number] : 1945 Acct:[id number] Age/Sex: 77 / F Adm Date: 3 Loc: 4N Room: [address] [place] [address] Type: ADM IN Attending Dr: Carla Hagan [...] place, time and person. Morbidly obese HEENT: [place] conjunctiva and NL buccal mucosa Neck: Supple, [...] signed by Carla Hagan MD> 12/29/22 1000 [facility] Work Phone: Progress note Author Carla Hagan [facility] December 30, 2022 9:53am Note Date/Time December 30, 2022 9:[address] [facility] [address] [place] [address] Hospitalist Progress Note Signed Patient: Gera Perdue MR#: [id number] : 1945 Acct:[id number] Age/Sex: 77 / F Adm Date: 3 Loc: 4N Room: [id number] Type: ADM IN Attending Dr: Carla Hagan [...] place, time and person. Morbidly obese HEENT: [place] conjunctiva and NL buccal mucosa Neck: Supple, [...] Plan is to discharge patient to senior care unit for short period of time for [...] signed by Carla Hagan MD> 12/30/22 0953 [facility] Work Phone: Progress note Author Jolanta Mckenzie [facility] July 11, 2023 12:47pm Note Date/Time July 11, 2023 10:10am [facility] [address] [place] [address] Hospitalist Progress Note Signed with Ling Patient: Gera Perdue MR#: [id number] : 1945 Acct:[id number] Age/Sex: 77 / F Adm Date: 3 Loc: Room: [address] [place] [address] Type: ADM IN Attending Dr: Jolanta Mckenzie [...] 1,000 Ml IV 07/09/24 13:59 75 mls/hr .[id number] JERILYN Administration Ceftriaxone Sodium 1 gm in [...] signed by Jolanta Mckenzie MD> 07/11/23 1246 [facility] Work Phone: Progress note Author Jolanta Mckenzie [facility] July 12, 2023 3:00pm Note Date/Time July 12, 2023 2:16pm [facility] [address] [place] [address] Hospitalist Progress Note Signed with Addenda Patient: Gera Perdue MR#: [id number] : 1945 Acct:[id number] Age/Sex: 77 / F Adm Date: 3 Loc: Room: [address] [place] [address] Type: ADM IN Attending Dr: Jolanta Mckenzie [...] switch to oral prednisone. PT recommended senior care facility which patient is refusing with plan [...] 1,000 Ml IV 07/09/24 13:59 75 mls/hr .[id number] JERILYN Administration Ceftriaxone Sodium 1 gm in [...] signed by Jolanta Mckenzie MD> 07/12/23 1457 [facility] Work Phone: Progress note Author Jolanta Mckenzie [facility] July 13, 2023 1:59pm Note Date/Time July 13, 2023 10:40am [facility] [address] [place] [address] Hospitalist Progress Note Signed with Ling Patient: Gera Perdue MR#: [id number] : 1945 Acct:[id number] Age/Sex: 77 / F Adm Date: 3 Loc: Room: [address] [place] [address] Type: ADM IN Attending Dr: Jolanta Mckenzie [...] patient also on steroid. Discussed regarding senior care facility she has not decided yet. Give [...] signed by Jolanta Mckenzie MD> 07/13/23 1356 [facility] Work Phone: Progress note No data available for this section [facility] Reason for referral (narrative)* Consultation (Routine) - Pending Review Specialty Diagnoses / Procedures Referred By Contvianney t Referred To Contact Pain Medicine Diagnoses Neural foraminal stenosis of lumbosacral spine Procedures [place] OFFICE/OUTPATIENT NEW HIGH MDM 60 MINUTES Kiran Gutierrez, GAS LEAK INSPECTOR HELPER [address] [place] [address] Prasad Ambrosio MD [address] [place] [address] Referral ID Status Reason Start Date Expiration Date Visits Requested Visits Authorized [id number] Pending Review Specialty Services Required 06/22/2024 12/19/2024 1 1 ERIC Phillips for referral (narrative)* Consultation (Routine) - Pending Review Specialty Diagnoses / Procedures Referred By Susanne russell Referred To Contact Pulmonary Medicine Diagnoses Chronic respiratory failure with hypoxia, on home O2 therapy ([facility]) Former cigarette smoker Abnormal CT of the chest Angela Belcher APRN-CNP [address] [facility] [address] [place] [address] Varun Arroyo MD [address] [address] [place] [address] Referral ID Status Reason Start Date Expiration Date Visits Requested Visits Authorized [id number] Pending Review Specialty Services Required 03/17/2024 03/17/2025 1 1 [facility] Summary Purpose Family History Relationship Condition Age [...] Documents on File Type Date Recorded Patient Tractor Expert Expl anation Advance Directives and Living Will Power of Artist Suspect Latest Code Status on File Code Status Date Activated Date Inactivated Comments Full Code 08/02/2019 12:07 AM Advance Directive Response Recorded Date/ Time Advance Directives Yes May 13 2:57pm Advance Directive Response Recorded Date/ Time Advance Directives Yes May 13 1:57pm Documents on File Type Date Recorded Patient Tractor Expert Expl anation DNR Physician Order 10/29/2023 8:25 AM Durable Power of Artist Suspect 10/29/2023 6:51 AM Date Activated Date Inactivated Comments 02/19/2024 6:21 PM 02/25/2024 8:07 PM Date Activated Date Inactivated Comments 10/11/2023 11:48 AM 10/23/2023 1:09 PM Date Activated Date Inactivated Comments 10/05/2023 8:00 PM 10/11/2023 11:48 AM Latest Code Status on File Code Status Date Activated Date Inactivated Comments DNR Comfort Care Arrest (DNR -CCA) [place] 10/11/2023 11:48 AM 10/23/2023 1:09 PM Code Status History Code Status Date Activated Date Inactivated Comments Full Code 10/05/2023 8:00 PM 10/11/2023 11:48 AM Documents on File Type Date Recorded Patient Tractor Expert Expl anation DNR Physician Order 10/29/2023 8:25 AM Durable Power of Artist Suspect 10/29/2023 6:51 AM Date Activated Date Inactivated Comments 02/19/2024 6:21 PM 02/25/2024 8:07 PM Date Activated Date Inactivated Comments 10/11/2023 11:48 AM 10/23/2023 1:09 PM Date Activated Date Inactivated Comments 10/05/2023 8:00 PM 10/11/2023 11:48 AM Hospital Course * Ellen Gonzalez MD - 08/04/2019 1:39 PM EDT [facility] IN-PATIENT SERVICE [facility] Discharge Summary Patient ID: Gera Perdue : 1945 ACCOUNT: [id number] Patient's PCP: Physician Generic (Inactive) Admit Date: [...] Assisted Dressing Assisted Toileting Assisted Feeding Independent Slat Basket Maker Independent Med Delivery whole Wound Care Documentation [...] applicable) Name: Address: Dialysis Schedule: Phone: Fax: Warp Knitter Helper/Genetic Physician signature: {Esignature:[id number]} PHYSICIAN SECTION Prognosis: Good Condition at Discharge: [...] sent through Care Everywhere. * Low-Fiber Diet (Mozambican) documented in this encounter History of Present Illness * Ellen Gonzalez MD - 08/04/2019 10:03 AM EDT [facility] IN-PATIENT SERVICE [facility] Progress Note 08/04/2019 10:03 AM Name: eGra Perdue Acct: [id number] Room: [facility] Day: 3 Admit Date: 08/01/2019 11:58 PM [...] Gonzalez MD - 08/03/2019 12:24 PM EDT [facility] IN-PATIENT SERVICE [facility] Progress Note 08/03/2019 12:24 PM Name: Gera Perdue Acct: [id number] Room: [facility]/0236-01 Day: 2 Admit Date: 08/01/2019 11:58 PM [...] 08/02/2019 9:16 AM EDT Attempted to call [facility] pharmacy in [place] to retrieve home medication list, but pharmacy does not open until 10:00 am. Pantographer will attempt again after this time. * [...] Coronary atherosclerosis of unspecified type of vessel, kashia or graft Mixed hyperlipidemia Essential hypertension Unspecified [...] rt knee swollen, sen t by dr ISNGLETON Reason for Visit Acute exacerbation o f [...] chest 2 views Jenna Engle MD [address] [facility] [address] [place] [address] Referral ID Status Reason Start Date Expiration Date Visits Requested Visits Authorized [id number] Authorized Perform Procedure 01/06/2024 01/05/2025 1 1 Specialty Diagnoses / Procedures Referred By Contac t Referred To Contact Diagnoses Shortness of breath Procedures ECG 12 Lead Jenna Engle MD [address] [facility] [address] [place] [address] Referral ID Status Reason Start Date Expiration Date V isits Requested Visits Authorized [id number] Authorized 01/06/2024 01/05/2025 1 1 Specialty Diagnoses / Procedures Referred By Contac t Referred To Contact Cardiology Diagnoses Shortness of breath Procedures Follow Up In Cardiology Jenna Engle MD [address] [facility] [address] [place] [address] Jenna Engle MD [address] [facility] [address] [place] [address] Referral ID Status Reason Start Date Expiration Date V isits Requested Visits Authorized [id number] Authorized 01/06/2024 01/05/2025 1 1 Specialty Diagnoses / Procedures Referred By Contac t Referred To Contact Cardiology Diagnoses Shortness of breath Procedures Transthoracic Echo Complete WI ECHO TTHRC R-T 2D W/WOM-MODE COMPL SPEC&COLR D Jenna Engle MD [address] [facility] [address] [place] [address] Referral ID Status Reason Start Date Expiration Date Visits Requested Visits Authorized [id number] Pending Review Perform Procedure 01/06/2024 01/05/2025 1 1 Specialty Diagnoses / Procedures Referred By Contac t Referred To Contact Outdoor Advertising Leasing Agent Diagnoses Essential hypertension (CMS/HCC) Stage 3a chronic kidney disease (HCC) (CMS/HCC) Sepsis with acute renal failure without septic shock, due to unspecified organism, unspecified acute renal failure type (CMS/HCC) Medication management Procedures [place] OFFICE/OUTPATIENT NEW HIGH MDM 60 MINUTES Lilliam Cheek GAS LEAK INSPECTOR HELPER [address] [place] [address] [facility] [address] [place] [address] Referral ID Status Reason Start Date Expiration Date Visits Requested Visits Authorized [id number] Pending Review Specialty Services Required 12/09/2023 06/06/2024 1 1 Specialty Diagnoses / Procedures Referred By Contac t Referred To Contact Home Health Services Diagnoses SOB (shortness of breath) Wheezing Urinary tract bacterial infections Essential hypertension ([facility]/HCC) Mixed hyperlipidemia ([facility]/HCC) Stage 3a chronic kidney disease (HCC) ([facility]) Sepsis with acute renal failure without septic shock, due to unspecified organism, unspecified acute renal failure type ([facility]) Medication management Lilliam Cheek, GAS LEAK INSPECTOR HELPER [address] [place] [address] Referral ID Status Reason Start Date Expiration Date Visits Requested Visits Authorized [id number] Pending Review Specialty Services Required 12/09/2023 02/07/[phone] Specialty Diagnoses / Procedures Referred By Contac t Referred To Contact Obstetrics and Gynecology Diagnoses Urinary tract bacterial infections Female bladder prolapse Procedures [place] OFFICE/OUTPATIENT NEW HIGH MDM 60 MINUTES Lilliam Cheek, GAS LEAK INSPECTOR HELPER [address] [place] [address] Cee Cordero DO [address] [place] [address] Referral ID Status Reason Start Date Expiration Date Visits Requested Visits Authorized [id number] Pending Review Specialty Services Required 12/09/2023 06/06/2024 1 1 Additional Source Comments INFORMATION SOURCE (unrecogn ized section and content) DATE CREATED AUTHOR 07/12/2018 [facility] DATE CREATED AUTHOR AUTHOR'S ORGANIZ ATION 08/29/2019 [facility] DATE CREATED AUTHOR AUTHOR'S ORGANIZ ATION 12/24/2020 [facility] DATE CREATED AUTHOR AUTHOR'S ORGANIZ ATION 05/01/2022 [facility] dical Specialist DATE CREATED AUTHOR AUTHOR'S ORGANIZ ATION 01/02/2023 [facility] DATE CREATED AUTHOR AUTHOR'S ORGANIZ ATION 01/21/2023 [facility] DATE CREATED AUTHOR AUTHOR'S ORGANIZ ATION 02/16/2024 [facility] DATE CREATED AUTHOR AUTHOR'S ORGANIZ ATION 02/26/2024 [facility] DATE CREATED AUTHOR AUTHOR'S ORGANIZ ATION 04/23/2024 [facility] DATE CREATED AUTHOR AUTHOR'S ORGANIZ ATION 05/02/2024 [facility] DATE CREATED AUTHOR AUTHOR'S ORGANIZ ATION 07/04/2024 [facility] dical Specialists EPIC DATE CREATED AUTHOR AUTHOR'S ORGANIZ ATION 09/27/2024 [facility] y[facility] DATE CREATED AUTHOR AUTHOR'S ORGANIZ ATION 10/09/2024 [facility] Reason for Visit (unrecogniz ed section and content) Status Reason Specialty Diagnoses / Procedures Referre d By Contact Referred To Contact Diagnoses Small bowel obstruction (HCC) Verenice Shea MD [address] [address] [facility] Reason Comments Hospital Follow-up Reason Comments New Patient Visit Old [facility] patient Specialty Diagnoses / Procedures Referred By Susanne russell Referred To Contact Cardiology Diagnoses Shortness of breath Procedures Transthoracic Echo Complete [place] ECHO TTHRC R-T 2D W/WOM-MODE COMPL SPEC&COLR D Jenna Engle MD [address] [facility] [address] [place] [address] Referral ID Status Reason Start Date Expiration Date Visits Requested Visits Authorized [id number] Authorized Perform Procedure 01/06/2024 01/05/2025 1 1 Reason Comments Follow-up 1m echo results Specialty Diagnoses / Procedures Referred By Susanne russell Referred To Contact Cardiology Diagnoses Shortness of breath Procedures Follow Up In Cardiology Jenna Engle MD [address] [place] [address] Jenna Engle MD [address] [place] [address] Referral ID Status Reason Start Date Expiration Date V isits Requested Visits Authorized [id number] Authorized 01/06/2024 01/05/2025 1 1 Reason Comments [...] Primary Care Provider Active Kadie Jones , [facility]- Emergency Provider Active Team Status: Active [...] Aquino MD Admit Provider, Attending Provider Active Hot 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 Worker Relationship Specialty Start Date End Date Gustavo Salas DO [address] [place] [address] PCP - General Internal Medicine 12/09/23 Leah Burgos, LASHAY [address] [place] [address] Registered Nurse Internal Medicine 12/09/23 Hot Blast Worker Relationship Specialty Start Date End Date Gustavo Salas DO [address] [place] [address] PCP - General Internal Medicine 01/06/24 Hot Blast Worker Relationship Specialty Start Date End Date Gustavo Salas DO [address] [place] [address] PCP - General Internal Medicine 01/06/24 Hot Blast Worker Relationship Specialty Start Date End Date Gustavo Salas DO [address] [place] [address] PCP - General Internal Medicine 01/06/24 Team Status: Inactive Member Role Status Dates Gustavo Salas DO Primary Care Provider Active Start: January 06, 2024 End: January 06, 2024 Jenna Engle MD Attending Provider Active Star t: January 06, 2024 End: January 06, 2024 Team Status: Active Member Role Status Dates Gustavo Salas DO Primary Care Provider Active Start: February 14, 2024 Kadie Jones [facility]- Emergency Provider Active Start: February 14, 2024 Lucho Grullon MD Admit Provider, Atte nding Provider Active Start: February 14, 2024 Team Status: Inactive Member Role Status Dates Gustavo Salas DO Primary Care Provider Active Start: February 14, 2024 End: February 17, 2024 Kadie Jones [facility] Emergency Provider Active Start: February 14, 2024 End: February 17, 2024 Lucho Grullon MD Admit Provider Active Start: February 14, 2024 End: February 17, 2024 Michoacano Mckenzie MD Attending Provider Active Start: February 14, 2024 End: February 17, 2024 Team Status: Active Member Role Status Dates Gustavo Salas DO Primary Care Provider Active Start: February 14, 2024 Kadie Jones [facility] Emergency Provider Active Start: February 14, 2024 Lucho Grullon MD Admit Provider, Atte nding Provider, Other Provider Active Start: February 14, 2024 Hot Blast Worker Relationship Specialty Start Date End Date Gustavo Salas DO [address] [place] [address] PCP - General Internal Medicine 12/09/23 Gustavo Salas DO [address] [place] [address] PCP - [facility] 03/28/24 10/27/24 Hot Blast Worker Relationship Specialty Start Date End Date Gustavo Salas DO [address] [place] [address] PCP - General Internal Medicine 12/09/23 Gustavo Salas DO [address] [place] [address] PCP - [facility] 03/28/24 10/27/24 Hot Blast Worker Relationship Specialty Start Date End Date Gustavo Salas DO [address] [place] [address] PCP - General Internal Medicine 12/09/23 Gustavo Salas DO [address] [place] [address] PCP - [facility] 03/28/24 10/27/24 Hot Blast Worker Relationship Specialty Start Date End Date Gustavo Salas DO [address] [place] [address] PCP - General Internal Medicine 12/09/23 Gustavo Salas DO [address] [place] [address] PCP - [facility] 03/28/24 10/27/24 Hot Blast Worker Relationship Specialty Start Date End Date Gustavo Salas DO [address] [place] [address] PCP - General Internal Medicine 12/09/23 Hot Blast Worker Relationship Specialty Start Date End Date Gustavo Salas DO [address] [place] [address] PCP - General Internal Medicine 12/09/23 Hot Blast Worker Relationship Specialty Start Date End Date Gustavo Salas DO [address] [place] [address] PCP - General Internal Medicine 12/09/23 Hot Blast Worker Relationship Specialty Start Date End Date Gustavo Salas DO [address] [place] [address] PCP - General Internal Medicine 12/09/23 Hot Blast Worker Relationship Specialty Start Date End Date Gustavo Salas DO [address] [place] [address] PCP - General Internal Medicine 12/09/23 Gustavo Salas DO [address] [place] [address] PCP - [facility] 03/28/24 10/27/24 Hot Blast Worker Relationship Specialty Start Date End Date Gustavo Salas DO [address] [place] [address] PCP - General Internal Medicine 12/09/23 Hot Blast Worker Relationship Specialty Start Date End Date Gustavo Salas DO [address] [place] [address] PCP - General Internal Medicine 12/09/23 Hot Blast Worker Relationship Specialty Start Date End Date Gustavo Salas DO [address] [place] [address] PCP - General Internal Medicine 02/19/24 Hot Blast Worker Relationship Specialty Start Date End Date Gustavo Salas DO [address] [place] [address] PCP - General Internal Medicine 02/19/24 Hot Blast Worker Relationship Specialty Start Date End Date Mely Camarillo APRN-LINE CREWMAN [address] [place] [address] PCP - General Family Medicine 04/08/19 Hot Blast Worker Relationship Specialty Start Date End Date Mely Camarillo APRN-LINE CREWMAN [address] [place] [address] PCP - General Family Medicine 04/08/19 Hot Blast Worker Relationship Specialty Start Date End Date Raffaelenehemias Mely Raza, JAY JAY-JIMMY [address] [place] [address] PCP - General Family Medicine 04/08/19 Hot Blast Worker Relationship Specialty Start Date End Date Gustavo Salas DO [address] [place], [place] [id number] PCP - General Internal Medicine 12/09/23 Hot Blast Worker Relationship Specialty Start Date End Date Gustavo Salas DO [address] [place] [address], [address] [place] [address] PCP - General Internal Medicine 02/19/24 Goals [...] BE BASED ON THE PRIMARY CLINICAL RECORDS. [employer] provides no warranty or guarantee of the accuracy or completeness of information in this document.
--- NOTE | 2024-12-13 19:43 | PC.NURSE ---
warehouse shipping receiving clerk took patient upstairs
[2024-12-13 20:08] LABS: A. calcoaceticus-baumannii Cpx NOT DETECTED (NOT DETECTE); Bacteroides fragilis NOT DETECTED (NOT DETECTE); Candida albicans NOT DETECTED (NOT DETECTE); Candida auris NOT DETECTED (NOT DETECTE); Candida glabrata NOT DETECTED (NOT DETECTE); Candida krusei NOT DETECTED (NOT DETECTE); Candida parapsilosis NOT DETECTED (NOT DETECTE); Candida tropicalis NOT DETECTED (NOT DETECTE); Cryptococcus neoformans/gattii NOT DETECTED (NOT DETECTE); Enterobacter cloacae complex NOT DETECTED (NOT DETECTE); Enterobacterales NOT DETECTED (NOT DETECTE); Enterococcus faecalis NOT DETECTED (NOT DETECTE); Enterococcus faecium NOT DETECTED (NOT DETECTE); Haemophilus influenzae NOT DETECTED (NOT DETECTE); Klebsiella aerogenes NOT DETECTED (NOT DETECTE); Klebsiella pneumoniae group NOT DETECTED (NOT DETECTE); Listeria monocytogenes NOT DETECTED (NOT DETECTE); Neisseria meningitidis NOT DETECTED (NOT DETECTE); Proteus spp. NOT DETECTED (NOT DETECTE); Pseudomonas aeruginosa NOT DETECTED (NOT DETECTE); Salmonella spp. NOT DETECTED (NOT DETECTE); Serratia marcescens NOT DETECTED (NOT DETECTE); Staphylococcus epidermidis NOT DETECTED (NOT DETECTE); Staphylococcus lugdunensis NOT DETECTED (NOT DETECTE); Staphylococcus spp. NOT DETECTED (NOT DETECTE); Stenotrophomonas maltophilia NOT DETECTED (NOT DETECTE); Streptococcus agalactiae NOT DETECTED (NOT DETECTE); Streptococcus pneumoniae NOT DETECTED (NOT DETECTE); Streptococcus pyogenes NOT DETECTED (NOT DETECTE); Streptococcus spp. NOT DETECTED (NOT DETECTE)
[2024-12-13] MEDS: CLINDAMYCIN PHOS 100 MG IV (20:18)
[2024-12-13] MEDS: BUDESONIDE 0.5 MG/2 ML AMPULE NEB IH (20:55)
[2024-12-13] MEDS: IPRATROPIUM/ALBUTEROL SULFATE 3 ML AMPUL.NEB IH (20:55)
[2024-12-13 21:25] LABS: Source BLOOD
[2024-12-13] MEDS: PREGABALIN 75 MG CAPSULE PO (21:39)
[2024-12-13] MEDS: CARVEDILOL 25 MG TABLET PO (21:39)
[2024-12-14] MEDS: CLINDAMYCIN PHOS 100 MG IV ×3 (02:19→13:21)
[2024-12-14] MEDS: CEFAZOLIN SODIUM/DEXTROSE,ISO 1 GM/50 ML PREMIX IV (02:52)
[2024-12-14 04:00] VITALS: BP 154/74; PULSE 73; TEMP 36.6; O2SAT 96
[2024-12-14 04:07] VITALS: PULSE 76; O2SAT 95
[2024-12-14] MEDS: IPRATROPIUM/ALBUTEROL SULFATE 3 ML AMPUL.NEB IH ×3 (04:07→16:44)
[2024-12-14] MEDS: ENOXAPARIN SODIUM 100 MG/ML SYRINGE 90 MG SUBQ (05:47)
[2024-12-14 06:20] LABS: Basophils Percent Auto 0.1 % (0.2-2.0); Hematocrit 31.7 % (36.0-48.0); Hemoglobin 9.7 g/dL (12.0-16.0); Immature Granulocytes Abs Auto 0.03 10^3/uL (0.00-0.03); Immature Granulocytes Pct Auto 0.4 % (0.0-0.5); Lymphocytes Absolute Auto 1.2 10^3/uL (1.2-3.8); Lymphocytes Percent Auto 16.4 % (20.5-60.0); Mean Corpuscular HGB Conc 30.6 g/dL (29.9-35.2); Mean Corpuscular Hemoglobin 26.1 pg (26.7-34.0); Mean Corpuscular Volume 85.2 fL (81.0-99.0); Mean Platelet Volume 8.8 fL (9.5-13.5); Monocytes Absolute Auto 0.3 10^3/uL (0.3-0.8); Monocytes Percent Auto 3.3 % (1.7-12.0); Neutrophils Percent Auto 79.8 % (43.0-75.0); Platelet Count 274 10^3/uL (150-450); Red Blood Count 3.72 10^6/uL (4.20-5.40); Red Cell Distribution Width 17.7 % (11.0-15.0); White Blood Count 7.6 10^3/uL (4.0-11.0)
[2024-12-14 06:29] LABS: Anion Gap 6.5; BUN Creatinine Ratio 8.2; Carbon Dioxide 34.1 mmol/L (21.0-32.0); Chloride 103 mmol/L (98-107); Estimated GFR (African America >60 (>=60 mL/min/1.73m^2); Estimated GFR (Non-African Ame 55 (>=60 mL/min/1.73m^2); Glucose 209 mg/dL (74-106); Potassium 3.6 mmol/L (3.5-5.1); Sodium 140 mmol/L (136-145)
[2024-12-14 08:08] VITALS: BP 163/77; PULSE 77; TEMP 36.6; O2SAT 92
[2024-12-14] MEDS: CEFDINIR 300 MG CAPSULE 600 MG PO (08:57)
[2024-12-14] MEDS: BUPROPION HCL 150 MG XL TABLET 24H 300 MG PO (08:57)
[2024-12-14] MEDS: PREGABALIN 75 MG CAPSULE PO (08:57)
[2024-12-14] MEDS: 0.9 % SODIUM CHLORIDE 250 ML 10 ML IV (08:57)
[2024-12-14] MEDS: CALCITONIN,SALMON,SYNTHETIC 30 SPRAY/3.7 ML BOTTLE NS (08:57)
[2024-12-14] MEDS: ACETAMINOPHEN 500 MG TABLET 1000 MG PO (08:58)
[2024-12-14] MEDS: CARVEDILOL 25 MG TABLET PO (08:58)
[2024-12-14] MEDS: CLOPIDOGREL BISULFATE 75 MG TABLET PO (08:58)
[2024-12-14] MEDS: FUROSEMIDE 20 MG TABLET PO (08:58)
[2024-12-14] MEDS: ATORVASTATIN CALCIUM 40 MG TABLET PO (08:58)
--- NOTE | 2024-12-14 09:56 | SWNOTE1 ---
Pt has [facility] home health services.
--- NOTE | 2024-12-14 11:16 | P.HP_ITS ---
HPI H&P: HPI History of Present Illness Chief complaint: NECK PAIN LEG PAIN RT UNABILITY TO WALK Narrative: 79 y/o female to ER with right leg pain and redness. C/o redness and swelling to right leg. Severe pain and very difficult to walk. To ER and WBC elevated. D-dimer elevated and concerned of DVT. Started antibiotics for possible cellulitis and admitted. Much improved this am. Redness improved and WBC normal. Still pain but able to walk with walker. Continued to have swelling in leg. Opioid HPI Opioid Management Most Recent Pain and Opioid Data: Last Pain Scale 5 12/14/24 10:15 12/14/24 Last Pain Intensity 2 10/13/24 13:10 10/13/24 Last Pain Assessment 12/14/24 10:14 Last MAR Pain Assessment 12/14/24 10:15 Last ORT Total Score 0 12/13/24 19:36 12/13/24 Last ORT Risk Category Low Risk 12/13/24 19:36 12/13/24 Review of Systems ROS Constitutional Denies: fever, chills or fatigue Cardiovascular Denies: chest pain, palpitations or edema Respiratory Denies: shortness of breath, cough or wheezing Gastrointestinal Denies: abdominal pain, nausea, vomiting or diarrhea Genitourinary Denies: painful urination [facility] Medical History (Updated 12/14/24 @ 09:25 by Remington Mcfarland MD) Chest congestion ?R09.89 - Other specified symptoms and signs involving the circulatory and respiratory systems (ICD-10) Knee osteoarthritis ?M17.9 - Osteoarthritis of knee, unspecified (ICD-10) Acute hyperkalemia ?E87.5 - Hyperkalemia (ICD-10) Weakness ?R53.1 - Weakness (ICD-10) Acute UTI ?N39.0 - Urinary tract infection, site not specified (ICD-10) Dehydration ?E86.0 - Dehydration (ICD-10) Nausea ?R11.0 - Nausea (ICD-10) 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 - Streptococcal infection, unspecified site (ICD-10) ?Z16.21 - Resistance to vancomycin (ICD-10) COPD with acute exacerbation ?J44.1 - Chronic obstructive pulmonary disease with (acute) exacerbation (ICD-10) Elevated blood pressure reading without diagnosis of hypertension ?R03.0 - Elevated blood-pressure reading, without diagnosis of hypertension (ICD-10) Bacteremia due to Staphylococcus ?R78.81 - Bacteremia (ICD-10) ?B95.8 - Unspecified staphylococcus as the cause of diseases classified elsewhere (ICD-10) Nausea & vomiting ?R11.2 - Nausea with vomiting, unspecified (ICD-10) Acute UTI (urinary tract infection) ?N39.0 - Urinary tract infection, site not specified (ICD-10) Dyspnea ?R06.00 - Dyspnea, unspecified (ICD-10) Compression fracture Back pain ?M54.9 - Dorsalgia, unspecified (ICD-10) Strain of lumbar region ?S39.012A - Strain of muscle, fascia and tendon of lower back, initial encounter (ICD-10) Elevated d-dimer ?R79.89 - Other specified abnormal findings of blood chemistry (ICD-10) Pneumonia ?J18.9 - Pneumonia, unspecified organism (ICD-10) Chronic respiratory failure with hypoxia ?J96.11 - Chronic respiratory failure with hypoxia (ICD-10) Anemia ?D64.9 - Anemia, unspecified (ICD-10) HLD (hyperlipidemia) ?E78.5 - Hyperlipidemia, unspecified (ICD-10) HTN (hypertension) ?I10 - Essential (primary) hypertension (ICD-10) Surgical History History of colon surgery ?Z98.890 - Other specified postprocedural states (ICD-10) Family History Grandmother Family history of CHF (congestive heart failure) Family history of cancer Family history of hypertension Family history of myocardial infarction Mother Family history of CHF (congestive heart failure) Family history of cancer Family history of hypertension Family history of myocardial infarction Uncle Family history of COPD (chronic obstructive pulmonary disease) Aunt Family history of cancer Social History Within the past year, how often did you have a drink containing alcohol: never Within the past year, how often did you have six or more drinks on one occasion: never Score interpretation: A score less than 3 is consistent with normal alcohol consumption. 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 [employer] Highest level of school completed/degree received: 11th grade Are you now , , , , never or living with a partner: In a typical week, how many times do you talk on the telephone with family, friends, or neighbors: 3 or more times per week How often do you get together with friends or relatives: 3 or more times per week How often do you attend hoahaoism or jehovah's witness services: 1-3 times per year Do you belong to any clubs or organizations such as hoahaoism groups unions, [employer] or [employer] groups, or school groups: yes Total score: 2 Score interpretation: A score of greater than or equal to 2 indicates the lowest level of social isolation. Little interest or pleasure in doing things: not at all Feeling down, depressed, or hopeless: not at all Feel stressed/tense/nervous/anxious/difficulty sleeping: to some extent Do you think of yourself as: decline to answer Gender Identity: female Meds Home Medications and Allergies Home Medications ?Medication ?Instructions ?Recorded ?Confirmed ?Type albuterol sulfate 90 mcg/actuation 2 puff inhalation Q4H PRN 08/28/23 12/07/24 History aerosol inhaler shortness of breath or wheezing cholecalciferol (vitamin D3) 50 50 mcg PO DAILY 08/28/23 12/07/24 History mcg (2,000 unit) tablet pregabalin 75 mg capsule 75 mg PO BID 08/28/23 12/07/24 History melatonin 5 mg tablet 5 mg PO QPM 08/14/24 12/07/24 History fluticasone fur. 100 mcg-umeclid 1 inh inhalation QAM 09/19/24 12/07/24 History 62.5 mcg-vilant 25 mcg inhalat.powder (Trelegy Ellipta) polyethylene glycol 3350 17 17 g PO DAILY PRN constipation 10/01/24 12/07/24 Rx gram/dose oral powder (Miralax) #510 grams calcitonin (salmon) 200 1 spray intranasal QD #3.7 mL 10/08/24 12/07/24 Rx unit/actuation nasal spray carvedilol 25 mg tablet (Coreg) 25 mg PO BID 30 days #60 tabs 10/15/24 12/07/24 Rx linezolid 600 mg tablet 600 mg PO BID 13 days #26 tabs 10/15/24 12/07/24 Rx alendronate 70 mg tablet 70 mg PO .Weekly 12/07/24 12/07/24 History atorvastatin 40 mg tablet 40 mg PO DAILY 12/07/24 12/07/24 History bupropion HCl 300 mg 24 hr tablet, 300 mg PO DAILY 12/07/24 12/07/24 History extended release cholecalciferol (vitamin D3) 50 2,000 unit PO DAILY 12/07/24 12/07/24 History mcg (2,000 unit) capsule clopidogrel 75 mg tablet 75 mg PO DAILY 12/07/24 12/07/24 History furosemide 20 mg tablet 20 mg PO DAILY 12/07/24 12/07/24 History cefdinir 300 mg capsule 600 mg (2 x 300 mg) PO DAILY #20 12/08/24 Rx caps Allergies Allergy/AdvReac Type Severity Reaction Status Date / Time aspirin Allergy Severe Hives Verified 12/13/24 15:47 Exam Constitutional Vital Signs, click to edit/add: Last Vital Signs Temp 97.9 F 12/14/24 08:08 Pulse 77 12/14/24 08:08 Resp 18 12/14/24 08:08 BP 163/77 H 12/14/24 08:08 Pulse Ox 92 L 12/14/24 08:08 O2 Del Method Nasal Cannula 12/14/24 08:08 O2 Flow Rate 3 12/14/24 08:08 Documenting provider has reviewed patient's vital signs: yes Common normals: no apparent distress, oriented x3 and alert HENMT Common normals: normocephalic Eye Common normals: PERRL and EOMs intact bilaterally Respiratory Common normals: normal respiratory effort and clear to auscultation bilaterally Cardio Common normals: regular rate, regular rhythm, no gallops, no murmurs and no rub GI Common normals: Normal to inspection, nondistended, normoactive bowel sounds present and non-tender Extremity General: edema (Minimal erythema and 2+ pitting pedal edema in Right leg) Results Labs Labs: Short CBC 12/13/24 12/14/24 Range/Units 16:03 06:03 WBC 13.6 H 7.6 (4.0-11.0) 10^3/uL Hgb 11.1 L 9.7 L (12.0-16.0) g/dL Hct 37.1 31.7 L (36.0-48.0) % Plt Count 308 274 (150-450) 10^3/uL BMP 12/13/24 12/14/24 16:03 06:03 Sodium 139 140 Potassium 3.2 L 3.6 Chloride 102 103 Carbon Dioxide 36.9 H 34.1 H BUN 4.0 L 8.0 Creatinine 0.89 0.98 Glucose 90 209 H Calcium 9.2 9.0 Urine 12/13/24 Range/Units 17:20 Urine Color Yellow (YELLOW) Urine Clarity Sl cloudy (CLEAR) Urine pH 6.0 (5.0-9.0) Ur Specific [place] >=1.030 A (1.005-1.025) Urine Protein Trace (NEG/TRACE) mg/dL Urine Glucose (UA) Negative (NEGATIVE) mg/dL Assessment and Plan Assessment and Plan (1) Cellulitis of right leg: (2) Leg pain, right: (3) Inability to walk: (4) COPD (chronic obstructive pulmonary disease): (5) Essential (primary) hypertension: (6) CAD (coronary artery disease), [place] coronary artery: (7) Chronic heart failure with preserved ejection fraction (HFpEF): (8) ARMAND (obstructive sleep apnea): (9) Class 2 obesity: Plan Concerned of cellulitis and start clindamycin. Erythema mostly resolved and still mild swelling. US negative for DVT and showed subcutaneous edema. Ambulating with walker. Discharge home with home health. Take clindamycin x 10 days for cellulitis. Resume home medication as directed. Elevate leg PRN.
--- NOTE | 2024-12-14 11:24 | CM.NOTE ---
Rounds made with Dr. Mcfarland, awaiting ultrasound results. Possible discharge this afternoon, PT will evaluate pt prior to discharge. Pt is active with [address]
--- NOTE | 2024-12-14 11:28 | CM.NOTE ---
Medicare Outpatient Observation Notice discussed with pt, pt verbalizes understanding and signs paper. Original given to pt and copy placed on pt's chart.
[2024-12-14] MEDS: BUDESONIDE 0.5 MG/2 ML AMPULE NEB IH (11:34)
--- NOTE | 2024-12-14 11:46 | SWNOTE1 ---
Pt does wear home oxygen at 3 liters from [employer]. Possible discharge later today.
--- NOTE | 2024-12-14 15:46 | SWNOTE1 ---
Pt is discharging today. SW faxed CRF, dc med rec, ED note, H&P, and PT/OT notes to [address]
[2024-12-14 16:45] VITALS: PULSE 84; O2SAT 95
--- NOTE | 2024-12-14 18:33 | US_ITS ---
The [address] [address] Patient Name: GERA PERDUE MRN: [id number] date: 1945 Sex: F Assigned Patient Location: [place] Current Patient Location: [place] Accession/Order Number: [id number] Exam Date: 12/14/2024 07:45 Report Date: 12/14/2024 10:26 At the request of: CARMEN GOMEZ Procedure: US venous doppler LE RT EXAM: US venous doppler LE RT. HISTORY: Swelling, rule out DVT. Leg pain, swelling, redness x1 day. COMPARISON: None. TECHNIQUE: Duplex sonography of the right lower extremity venous structures. Venous duplex examination performed using B-mode, color flow and spectral analysis. FINDINGS: There is spontaneous and phasic flow with good augmentation in the right common femoral, profunda femoris, superficial femoral and popliteal veins. All visualized venous structures were echo-free and demonstrate complete compressibility with extrinsic transducer pressure. Greater saphenous vein is unremarkable. Some interstitial edema in the subcutaneous fat along the right leg. US/US venous doppler LE RT IMPRESSION: 1. No evidence of right lower extremity DVT. 2. Nonspecific edema along the right lower extremity could be cellulitis, lymphedema or venous stasis. Electronically authenticated by: CLYDE BELLO Date: 12/14/2024 10:26
--- NOTE | 2024-12-15 09:07 | SWNOTE1 ---
SW was also consulted for Advanced Directives, but she has already completed these and they are scanned in to chart.
--- NOTE | 2024-12-15 15:08 | CM.DCFOLLOWU ---
12/15- Fast busy signal unable to contact.
== END 2024-12-14 17:17 | disposition home health service (06) ==
LOC: ER 17:38 → MS 19:32
PROVIDERS: Admitting Provider Family Medicine; Emergency Provider Emergency Medicine; PCP Internal Medicine; Visit Provider Family Medicine
DX: L03.115 Cellulitis of right lower limb (principal); M79.604 Pain in right leg; R26.2 Difficulty in walking, not elsewhere classified; J44.9 Chronic obstructive pulmonary disease, unspecified; Z79.01 Long term (current) use of anticoagulants; I25.10 Atherosclerotic heart disease of native coronary artery without angina pectoris; E66.812 Obesity, class 2; I50.30 Unspecified diastolic (congestive) heart failure; I11.0 Hypertensive heart disease with heart failure; M54.2 Cervicalgia; R79.89 Other specified abnormal findings of blood chemistry; Z87.891 Personal history of nicotine dependence; G47.33 Obstructive sleep apnea (adult) (pediatric); R82.998 Other abnormal findings in urine; Z68.38 Body mass index [BMI] 38.0-38.9, adult
CPT/HCPCS: 36415; 51798; 71045; 72125; 80048; 81001; 85007; 85025; 85027; 85378; 85610; 87040; 87086; 87150; 87804; 87811; 93005; 93971; 94640; 94761; 96365; 96366; 96367; 96368; 96372; 96375; 97161; 99285; G0378; J0690; J1650; J2270

== ENCOUNTER 2024-12-17 15:37 | Emergency (ER) | payer MEDICARE, MEDICAID, SELFPAY ==
[2024-12-17] VITALS (11 sets, daily range): BP systolic 143–164; BP diastolic 94–119; PULSE 99–128; TEMP 36.6; O2SAT 96–100; BMI 41.0
--- NOTE | 2024-12-17 15:41 | ED.GENADUL1 ---
HPI HPI - General Adult General Chief complaint: Shortness of Breath/Dyspnea Stated complaint: difficulty breathing Time Seen by Provider: 12/17/24 15:41 Source: patient Mode of arrival: ambulance History of Present Illness HPI narrative: Patient presents by EMS for evaluation of the fairly sudden onset of shortness of breath. She has been treated with IV Solu-Medrol, DuoNeb aerosol and now, albuterol aerosol. Patient states she got up around 7 this morning and had lower abdominal pain and vomiting. She has thrown up 3 times. During episodes of vomiting she started feeling short of breath which prompted the call to EMS and transferred to this facility. Patient denies chest pain or tightness. She has a history of COPD. Related Data Home Medications ?Medication ?Instructions ?Recorded ?Confirmed albuterol sulfate 90 mcg/actuation 2 puff inhalation Q4H PRN 08/28/23 12/07/24 aerosol inhaler shortness of breath or wheezing cholecalciferol (vitamin D3) 50 50 mcg PO DAILY 08/28/23 12/07/24 mcg (2,000 unit) tablet pregabalin 75 mg capsule 75 mg PO BID 08/28/23 12/07/24 melatonin 5 mg tablet 5 mg PO QPM 08/14/24 12/07/24 fluticasone fur. 100 mcg-umeclid 1 inh inhalation QAM 09/19/24 12/07/24 62.5 mcg-vilant 25 mcg inhalat.powder (Trelegy Ellipta) alendronate 70 mg tablet 70 mg PO .Weekly 12/07/24 12/07/24 atorvastatin 40 mg tablet 40 mg PO DAILY 12/07/24 12/07/24 bupropion HCl 300 mg 24 hr tablet, 300 mg PO DAILY 12/07/24 12/07/24 extended release cholecalciferol (vitamin D3) 50 2,000 unit PO DAILY 12/07/24 12/07/24 mcg (2,000 unit) capsule clopidogrel 75 mg tablet 75 mg PO DAILY 12/07/24 12/07/24 furosemide 20 mg tablet 20 mg PO DAILY 12/07/24 12/07/24 Previous Rx's ?Medication ?Instructions ?Recorded polyethylene glycol 3350 17 17 g PO DAILY PRN constipation 10/01/24 gram/dose oral powder (Miralax) #510 grams calcitonin (salmon) 200 1 spray intranasal QD #3.7 mL 10/08/24 unit/actuation nasal spray carvedilol 25 mg tablet (Coreg) 25 mg PO BID 30 days #60 tabs 10/15/24 cefdinir 300 mg capsule 600 mg (2 x 300 mg) PO DAILY #20 12/08/24 caps clindamycin HCl 300 mg capsule 300 mg PO Q6H 10 days #40 caps 12/14/24 Allergies Allergy/AdvReac Type Severity Reaction Status Date / Time aspirin Allergy Severe Hives Verified 12/13/24 15:47 Opioid HPI Opioid Management Most Recent Opioid Data: Last Pain Scale 4 12/14/24 11:20 12/14/24 Last Pain Intensity 2 10/13/24 13:10 10/13/24 Last Pain Assessment 12/14/24 16:17 Last ORT Total Score 0 12/13/24 19:36 12/13/24 Last ORT Risk Category Low Risk 12/13/24 19:36 12/13/24 Review of Systems ROS Status of ROS 10 or more systems reviewed and unremarkable except as noted in history and below [facility] Medical History Chest congestion ?R09.89 - Other specified symptoms and signs involving the circulatory and respiratory systems (ICD-10) Knee osteoarthritis ?M17.9 - Osteoarthritis of knee, unspecified (ICD-10) Acute hyperkalemia ?E87.5 - Hyperkalemia (ICD-10) Weakness ?R53.1 - Weakness (ICD-10) Acute UTI ?N39.0 - Urinary tract infection, site not specified (ICD-10) Dehydration ?E86.0 - Dehydration (ICD-10) Nausea ?R11.0 - Nausea (ICD-10) 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 - Streptococcal infection, unspecified site (ICD-10) ?Z16.21 - Resistance to vancomycin (ICD-10) COPD with acute exacerbation ?J44.1 - Chronic obstructive pulmonary disease with (acute) exacerbation (ICD-10) Elevated blood pressure reading without diagnosis of hypertension ?R03.0 - Elevated blood-pressure reading, without diagnosis of hypertension (ICD-10) Bacteremia due to Staphylococcus ?R78.81 - Bacteremia (ICD-10) ?B95.8 - Unspecified staphylococcus as the cause of diseases classified elsewhere (ICD-10) Nausea & vomiting ?R11.2 - Nausea with vomiting, unspecified (ICD-10) Acute UTI (urinary tract infection) ?N39.0 - Urinary tract infection, site not specified (ICD-10) Dyspnea ?R06.00 - Dyspnea, unspecified (ICD-10) Compression fracture Back pain ?M54.9 - Dorsalgia, unspecified (ICD-10) Strain of lumbar region ?S39.012A - Strain of muscle, fascia and tendon of lower back, initial encounter (ICD-10) Elevated d-dimer ?R79.89 - Other specified abnormal findings of blood chemistry (ICD-10) Pneumonia ?J18.9 - Pneumonia, unspecified organism (ICD-10) Chronic respiratory failure with hypoxia ?J96.11 - Chronic respiratory failure with hypoxia (ICD-10) Anemia ?D64.9 - Anemia, unspecified (ICD-10) HLD (hyperlipidemia) ?E78.5 - Hyperlipidemia, unspecified (ICD-10) HTN (hypertension) ?I10 - Essential (primary) hypertension (ICD-10) Surgical History History of colon surgery ?Z98.890 - Other specified postprocedural states (ICD-10) Family History Grandmother Family history of CHF (congestive heart failure) Family history of cancer Family history of hypertension Family history of myocardial infarction Mother Family history of CHF (congestive heart failure) Family history of cancer Family history of hypertension Family history of myocardial infarction Uncle Family history of COPD (chronic obstructive pulmonary disease) Aunt Family history of cancer Social History Within the past year, how often did you have a drink containing alcohol: never Within the past year, how often did you have six or more drinks on one occasion: never Score interpretation: A score less than 3 is consistent with normal alcohol consumption. 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 Highest level of school completed/degree received: 11th grade Are you now , , , , never or living with a partner: In a typical week, how many times do you talk on the telephone with family, friends, or neighbors: 3 or more times per week How often do you get together with friends or relatives: 3 or more times per week How often do you attend sikh or taoism services: 1-3 times per year Do you belong to any clubs or organizations such as sikh groups unions, fraternal or athletic groups, or school groups: yes Total score: 2 Score interpretation: A score of greater than or equal to 2 indicates the lowest level of social isolation. Little interest or pleasure in doing things: not at all Feeling down, depressed, or hopeless: not at all Feel stressed/tense/nervous/anxious/difficulty sleeping: to some extent Do you think of yourself as: decline to answer Gender Identity: female Exam Narrative Exam Narrative: Patient appears in acute respiratory distress upon arrival. She has audible wheezing and conversational dyspnea. She denies chest pain, heaviness or pressure. Heart rate was in the 120s upon arrival then slowing down to around 100 bpm. Patient was tachypneic and dyspneic but her breathing has settled down over time. Blood pressure was elevated at 164/119 and the repeat pressure is down to 148/94. She is mentating normally. There is no facial asymmetry and she moves all extremities actively. Oral cavity is moist neck is supple. Lung sounds are diminished with inspiratory and expiratory rhonchi with prolongation of the expiratory phase in all lung zones. Heart has distant sounds with regular rate and rhythm. Abdomen is protuberant, soft nontender. Patient has bilateral pedal edema. Constitutional Vital Signs, click to edit/add: Last Vital Signs Temp 97.9 F 12/17/24 15:35 Pulse 99 H 12/17/24 16:50 Resp 22 H 12/17/24 16:50 BP 148/94 H 12/17/24 16:30 Pulse Ox 97 12/17/24 16:50 O2 Del Method Nasal Cannula 12/17/24 15:42 O2 Flow Rate 3 12/17/24 15:42 Course Vital Signs Vital signs: Vital Signs Temperature 97.9 F 12/17/24 15:35 Pulse Rate 128 H 12/17/24 15:35 Respiratory Rate 52 H 12/17/24 15:35 Blood Pressure 164/119 H 12/17/24 15:35 Pulse Oximetry 100 12/17/24 15:35 Oxygen Delivery Method Simple Mask 12/17/24 15:35 Temperature 97.9 F 12/17/24 15:35 Pulse Rate 99 H 12/17/24 16:50 Respiratory Rate 22 H 12/17/24 16:50 Blood Pressure 148/94 H 12/17/24 16:30 Pulse Oximetry 97 12/17/24 16:50 Oxygen Delivery Method Nasal Cannula 12/17/24 15:42 Oxygen Delivery Flow Rate 3 12/17/24 15:42 Medical Decision Making MDM Narrative Medical decision making narrative: Patient presents with COPD exacerbation and is starting to settle down. Her EKG showed nonspecific ST elevation in V4 V5 and V6 with no reciprocal changes and the troponin was elevated at 1643. She continues to deny chest pain, pressure or heaviness. Dimer is also somewhat elevated at 1.11 and the initial lactate is elevated at 2.6. I do not feel this is due to sepsis but rather ischemia and it is quite possible that the elevated troponin and lactate levels are manifestations of hypoxemia. Patient is being started on heparin and findings were discussed with cardiology on-call. The plan is to transfer her to [facility] emergency department and she has been accepted by Dr. Olguin on-call for cardiology at that facility and by Dr. Interiano in the ED. Lab Data Labs: Lab Results 12/17/24 12/17/24 12/17/24 Range/Units 15:50 15:52 16:47 WBC 15.4 H (4.0-11.0) 10^3/uL RBC 4.53 (4.20-5.40) 10^6/uL Hgb 11.7 L (12.0-16.0) g/dL Hct 39.3 (36.0-48.0) % MCV 86.8 (81.0-99.0) fL MCH 25.8 L (26.7-34.0) pg MCHC 29.8 L (29.9-35.2) g/dL RDW 17.6 H (11.0-15.0) % Plt Count 414 (150-450) 10^3/uL MPV 9.3 L (9.5-13.5) fL Seg Neuts % (Manual) 46.0 (43.0-75.0) Lymphocytes % (Manual) 40.0 (20.5-60.0) % Atypical Lymphs % (Man) 7.0 % Monocytes % (Manual) 6.0 (1.7-12.0) % Eosinophils % (Manual) 1.0 (0.9-7.0) % Basophils % (Manual) 0.0 L (0.2-2.0) % Neutrophils # (Manual) 7.08 H (1.4-6.5) 10^3/uL Lymphocytes # (Manual) 6.16 H (1.20-3.80) 10^3/uL Abs Atypical Lymphs Man 1.07 Monocytes # (Manual) 0.92 H (0.30-0.80) 10^3/uL Eosinophils # (Manual) 0.15 (0.00-0.70) 10^3/uL Basophils # (Manual) 0.00 (0.00-0.10) 10^3/uL Anisocytosis 1+ PT 11.3 (9.0-11.6) sec INR 1.07 APTT 20.2 L (22.3-36.2) sec D-Dimer 1.11 H* (<=0.59) mg/L FEU Sodium 142 (136-145) mmol/L Potassium 3.7 (3.5-5.1) mmol/L Chloride 102 (98-107) mmol/L Carbon Dioxide 33.6 H (21.0-32.0) mmol/L Anion Gap 10.1 BUN 12.0 (7.0-18.0) mg/dL Creatinine 1.13 H (0.55-1.02) mg/dL Est GFR ( Amer) 56 L (>=60 mL/min/1.73m^2) Est GFR (Non-Af Amer) 46 L (>=60 mL/min/1.73m^2) BUN/Creatinine Ratio 10.6 Glucose 215 H (74-106) mg/dL Lactate 2.6 H* (0.4-2.0) mmol/L Calcium 9.4 (8.5-10.1) mg/dL Magnesium 1.3 L (1.8-2.4) mg/dL Total Bilirubin 0.3 (0.2-1.0) mg/dL AST 28 (15-37) U/L ALT 15 (14-59) U/L Alkaline Phosphatase 81 (46-116) U/L Total Creatine Kinase 71 (26-192) U/L Myoglobin 96 H (9-82) ng/mL Troponin I High Sens 1643.4 H* 1681.2 H* (4.0-51.3) pg/mL NT-Pro-B Natriuret Pep 2451.0 H* (<=1800.0) pg/mL Total Protein 7.9 (6.4-8.2) g/dL Albumin 2.8 L (3.4-5.0) g/dL Globulin 5.1 g/dL Albumin/Globulin Ratio 0.5 Influenza Type A Ag Negative Influenza Type B Ag Negative SARS-CoV-2 Ag (CV2AG) Negative (NEGATIVE) Discharge Plan Discharge Chief Complaint: Shortness of Breath/Dyspnea Clinical Impression: ACS (acute coronary syndrome), Asthma exacerbation in COPD Patient Disposition: [facility] Time of Disposition Decision: 18:14 [facility]: [facility] Mode of Transportation: EMS
--- NOTE | 2024-12-17 15:42 | ECG_ITS ---
The [facility] Test Date: 2024-12-17 Pat Name: GERA PERDUE Department: Room: - Gender: Female Svp Monetization: : 1945 Requested By: Order Number: [id number] Reading MD: CARLOS MANUEL LANGLEY Measurements Intervals [place] Rate: 126 P: 90 UT: 156 QRS: 69 QRSD: 74 T: 74 QT: 344 QTc: 419 Interpretive Statements 1120 Sinus tachycardia 1970 with occasional ectopic premature complexes [address] elevation 8102 Low QRS voltage in chest leads 9140 abnormal rhythm ECG Electronically Signed On 12-18-2024 6:46:39 EST by CARLOS MANUEL LANGLEY
[2024-12-17 16:04] LABS: Hematocrit 39.3 % (36.0-48.0); Hemoglobin 11.7 g/dL (12.0-16.0); Mean Corpuscular HGB Conc 29.8 g/dL (29.9-35.2); Mean Corpuscular Hemoglobin 25.8 pg (26.7-34.0); Mean Corpuscular Volume 86.8 fL (81.0-99.0); Mean Platelet Volume 9.3 fL (9.5-13.5); Platelet Count 414 10^3/uL (150-450); Red Blood Count 4.53 10^6/uL (4.20-5.40); Red Cell Distribution Width 17.6 % (11.0-15.0); White Blood Count 15.4 10^3/uL (4.0-11.0)
[2024-12-17 16:14] LABS: Influenza Virus A Antigen Negative; Influenza Virus B Antigen Negative; Internal Control Within Normal Limits; SARS-CoV-2 Ag NEGATIVE (NEGATIVE)
[2024-12-17 16:21] LABS: D Dimer 1.11 mg/L FEU (<=0.59); Eosinophils Absolute Manual 0.15 10^3/uL (0.00-0.70); Lymphocytes Absolute Manual 6.16 10^3/uL (1.20-3.80); Monocytes Absolute Manual 0.92 10^3/uL (0.30-0.80); Segmented Neut Absolute Manual 7.08 10^3/uL (1.4-6.5)
[2024-12-17 16:22] LABS: Anisocytosis 1+; Atypical Lymphocytes Abs Man 1.07
[2024-12-17 16:28] LABS: Magnesium 1.3 mg/dL (1.8-2.4)
[2024-12-17 16:31] LABS: Alanine Aminotransferase 15 U/L (14-59); Albumin Globulin Ratio 0.5; Albumin Level 2.8 g/dL (3.4-5.0); Alkaline Phosphatase 81 U/L (46-116); Anion Gap 10.1; Aspartate Amino Transferase 28 U/L (15-37); BUN Creatinine Ratio 10.6; Bilirubin Total 0.3 mg/dL (0.2-1.0); Calcium 9.4 mg/dL (8.5-10.1); Carbon Dioxide 33.6 mmol/L (21.0-32.0); Chloride 102 mmol/L (98-107); Estimated GFR (African America 56 (>=60 mL/min/1.73m^2); Estimated GFR (Non-African Ame 46 (>=60 mL/min/1.73m^2); Globulin 5.1 g/dL; Glucose 215 mg/dL (74-106); Potassium 3.7 mmol/L (3.5-5.1); Sodium 142 mmol/L (136-145); Total Protein 7.9 g/dL (6.4-8.2)
[2024-12-17 16:34] LABS: Troponin I High Sensitivity 1643.4 pg/mL (4.0-51.3)
[2024-12-17 16:35] LABS: Lactate/Lactic Acid 2.6 mmol/L (0.4-2.0)
--- NOTE | 2024-12-17 16:35 | ECG_ITS ---
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
[2024-12-17 17:13] LABS: Creatine Kinase 71 U/L (26-192); Myoglobin 96 ng/mL (9-82)
[2024-12-17] MEDS: HEPARIN SODIUM,PORCINE/D5W 25,000 UNIT/500 ML IV.SOLN 16 UNIT IV (17:13)
[2024-12-17 17:14] LABS: INR 1.07; Partial Thromboplastin Time 20.2 sec (22.3-36.2); Prothrombin Time 11.3 sec (9.0-11.6)
[2024-12-17] MEDS: HEPARIN SODIUM (PORCINE) 5,000 UNIT/ML VIAL 2680 UNIT IV (17:15)
[2024-12-17 17:22] LABS: Troponin I High Sensitivity 1681.2 pg/mL (4.0-51.3)
[2024-12-17] MEDS: MAGNESIUM SULFATE IN WATER 2 GM/50 ML PREMIX IV (18:22)
== END 2024-12-17 18:46 | disposition short-term general hospital (02) ==
PROVIDERS: Emergency Provider Emergency Medicine; PCP Internal Medicine
DX: I24.9 Acute ischemic heart disease, unspecified (principal); J44.1 Chronic obstructive pulmonary disease with (acute) exacerbation; R06.02 Shortness of breath; R10.30 Lower abdominal pain, unspecified; R11.10 Vomiting, unspecified; Z87.891 Personal history of nicotine dependence; R79.89 Other specified abnormal findings of blood chemistry; J45.901 Unspecified asthma with (acute) exacerbation
CPT/HCPCS: 36415; 71045; 80053; 82550; 83605; 83735; 83874; 83880; 84484; 85007; 85027; 85378; 85610; 85730; 87040; 87804; 87811; 93005; 96365; 96375; 99285; J1644; J3475

== ENCOUNTER 2025-01-26 09:39 | Emergency (ER) | payer MEDICARE, MEDICAID, SELFPAY ==
[2025-01-26] VITALS (14 sets, daily range): BP systolic 125–126; BP diastolic 68–90; PULSE 74–87; TEMP 36.8; O2SAT 97–100; BMI 35.7
--- NOTE | 2025-01-26 09:59 | ED.GENADUL1 ---
HPI HPI - General Adult General Chief complaint: Abdominal Pain Stated complaint: NAUSEA/VOMITING Time Seen by Provider: 01/26/25 09:53 Source: patient Mode of arrival: ambulance Limitations: no limitations History of Present Illness HPI narrative: 79-year-old female presents from home by EMS for 2 days of nausea and vomiting. The first day she had diarrhea but that resolved. No hematemesis or blood in her stool. She complains of low abdominal pain, particular on the left side. She has a remote history of diverticulitis and had colostomy with reversal. She has not had a known fever. Other household members are not ill. Related Data Home Medications ?Medication ?Instructions ?Recorded ?Confirmed albuterol sulfate 90 mcg/actuation 2 puff inhalation Q4H PRN 08/28/23 12/07/24 aerosol inhaler shortness of breath or wheezing cholecalciferol (vitamin D3) 50 50 mcg PO DAILY 08/28/23 12/07/24 mcg (2,000 unit) tablet pregabalin 75 mg capsule 75 mg PO BID 08/28/23 12/07/24 melatonin 5 mg tablet 5 mg PO QPM 08/14/24 12/07/24 fluticasone fur. 100 mcg-umeclid 1 inh inhalation QAM 09/19/24 12/07/24 62.5 mcg-vilant 25 mcg inhalat.powder (Trelegy Ellipta) alendronate 70 mg tablet 70 mg PO .Weekly 12/07/24 12/07/24 atorvastatin 40 mg tablet 40 mg PO DAILY 12/07/24 12/07/24 bupropion HCl 300 mg 24 hr tablet, 300 mg PO DAILY 12/07/24 12/07/24 extended release cholecalciferol (vitamin D3) 50 2,000 unit PO DAILY 12/07/24 12/07/24 mcg (2,000 unit) capsule clopidogrel 75 mg tablet 75 mg PO DAILY 12/07/24 12/07/24 furosemide 20 mg tablet 20 mg PO DAILY 12/07/24 12/07/24 Previous Rx's ?Medication ?Instructions ?Recorded polyethylene glycol 3350 17 17 g PO DAILY PRN constipation 10/01/24 gram/dose oral powder (Miralax) #510 grams calcitonin (salmon) 200 1 spray intranasal QD #3.7 mL 10/08/24 unit/actuation nasal spray carvedilol 25 mg tablet (Coreg) 25 mg PO BID 30 days #60 tabs 10/15/24 cefdinir 300 mg capsule 600 mg (2 x 300 mg) PO DAILY #20 12/08/24 caps clindamycin HCl 300 mg capsule 300 mg PO Q6H 10 days #40 caps 12/14/24 ondansetron 4 mg disintegrating 4 mg PO Q6H PRN nausea and 01/26/25 tablet vomiting #20 tabs Allergies Allergy/AdvReac Type Severity Reaction Status Date / Time aspirin Allergy Severe Hives Verified 01/26/25 09:44 Opioid HPI Opioid Management Most Recent Opioid Data: Last Pain Scale 4 12/14/24 11:20 12/14/24 Last Pain Intensity 2 10/13/24 13:10 10/13/24 Last ORT Total Score 0 12/13/24 19:36 12/13/24 Last ORT Risk Category Low Risk 12/13/24 19:36 12/13/24 Review of Systems ROS Narrative A ten point review of systems is negative except as noted above. 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 - Streptococcal infection, unspecified site (ICD-10) ?Z16.21 - Resistance to vancomycin (ICD-10) COPD with acute exacerbation ?J44.1 - Chronic obstructive pulmonary disease with (acute) exacerbation (ICD-10) Elevated blood pressure reading without diagnosis of hypertension ?R03.0 - Elevated blood-pressure reading, without diagnosis of hypertension (ICD-10) Bacteremia due to Staphylococcus ?R78.81 - Bacteremia (ICD-10) ?B95.8 - Unspecified staphylococcus as the cause of diseases classified elsewhere (ICD-10) Nausea & vomiting ?R11.2 - Nausea with vomiting, unspecified (ICD-10) Acute UTI (urinary tract infection) ?N39.0 - Urinary tract infection, site not specified (ICD-10) Dyspnea ?R06.00 - Dyspnea, unspecified (ICD-10) Compression fracture Back pain ?M54.9 - Dorsalgia, unspecified (ICD-10) Strain of lumbar region ?S39.012A - Strain of muscle, fascia and tendon of lower back, initial encounter (ICD-10) Elevated d-dimer ?R79.89 - Other specified abnormal findings of blood chemistry (ICD-10) Pneumonia ?J18.9 - Pneumonia, unspecified organism (ICD-10) Chronic respiratory failure with hypoxia ?J96.11 - Chronic respiratory failure with hypoxia (ICD-10) Anemia ?D64.9 - Anemia, unspecified (ICD-10) HLD (hyperlipidemia) ?E78.5 - Hyperlipidemia, unspecified (ICD-10) HTN (hypertension) ?I10 - Essential (primary) hypertension (ICD-10) Surgical History History of colon surgery ?Z98.890 - Other specified postprocedural states (ICD-10) Family History Grandmother Family history of CHF (congestive heart failure) Family history of cancer Family history of hypertension Family history of myocardial infarction Mother Family history of CHF (congestive heart failure) Family history of cancer Family history of hypertension Family history of myocardial infarction Uncle Family history of COPD (chronic obstructive pulmonary disease) Aunt Family history of cancer Social History Within the past year, how often did you have a drink containing alcohol: never Within the past year, how often did you have six or more drinks on one occasion: never Score interpretation: A score less than 3 is consistent with normal alcohol consumption. 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 Highest level of school completed/degree received: 11th grade Are you now , , , , never or living with a partner: In a typical week, how many times do you talk on the telephone with family, friends, or neighbors: 3 or more times per week How often do you get together with friends or relatives: 3 or more times per week How often do you attend zoroastrianism or taoist services: 1-3 times per year Do you belong to any clubs or organizations such as zoroastrianism groups unions, fraternal or athletic groups, or school groups: yes Total score: 2 Score interpretation: A score of greater than or equal to 2 indicates the lowest level of social isolation. Little interest or pleasure in doing things: not at all Feeling down, depressed, or hopeless: not at all Feel stressed/tense/nervous/anxious/difficulty sleeping: to some extent Do you think of yourself as: decline to answer Gender Identity: female Exam Narrative Exam Narrative: Nurses note and vital signs reviewed and patient is not hypoxic. General: The patient appears in no apparent distress. Patient is resting comfortably on cart. Skin: Warm, dry, no pallor noted. There is no rash noted. Head: Normocephalic, atraumatic Eye: Normal conjunctiva, no drainage Ears, Nose, Mouth, and Throat: oral mucosa is minimally dry. Nares patent. Cardiovascular: Regular Rate and Rhythm Respiratory: Patient is in no distress, no accessory muscle use, lungs are clear to auscultation, no wheezing, rales or rhonchi Back: non-tender GI: Obese. Nondistended. Mild diffuse tenderness. Musculoskeletal: The patient has no evidence of calf tenderness, no pitting edema, symmetrical pulses noted bilaterally Neurological: A&O, normal speech Psychiatric: Cooperative Constitutional Vital Signs, click to edit/add: Last Vital Signs Temp 98.3 F 01/26/25 09:44 Pulse 83 01/26/25 12:01 Resp 15 01/26/25 12:01 BP 126/68 01/26/25 12:01 Pulse Ox 99 01/26/25 12:01 O2 Del Method Nasal Cannula 01/26/25 12:01 O2 Flow Rate 2 01/26/25 12:01 Course Vital Signs Vital signs: Vital Signs Blood Pressure 125/90 01/26/25 09:42 Temperature 98.3 F 01/26/25 09:44 Pulse Rate 83 01/26/25 12:01 Respiratory Rate 15 01/26/25 12:01 Blood Pressure 126/68 01/26/25 12:01 Pulse Oximetry 99 01/26/25 12:01 Oxygen Delivery Method Nasal Cannula 01/26/25 12:01 Oxygen Delivery Flow Rate 2 01/26/25 12:01 Medical Decision Making MDM Narrative Medical decision making narrative: CAT scan shows no acute findings and blood work is nonspecific. She is feeling improved after being given IV fluids and Zofran and is discharged home with a prescription for Zofran. Treatment diagnosis and follow-up were discussed with the patient. Differential Diagnosis Differential Diagnosis: Viral gastroenteritis, dehydration, small bowel obstruction Lab Data Lab results reviewed: Yes I reviewed the patient's lab results Labs: Lab Results 01/26/25 Range/Units 10:10 WBC 10.8 (4.0-11.0) 10^3/uL RBC 4.03 L (4.20-5.40) 10^6/uL Hgb 10.6 L (12.0-16.0) g/dL Hct 34.5 L (36.0-48.0) % MCV 85.6 (81.0-99.0) fL MCH 26.3 L (26.7-34.0) pg MCHC 30.7 (29.9-35.2) g/dL RDW 15.3 H (11.0-15.0) % Plt Count 330 (150-450) 10^3/uL MPV 9.1 L (9.5-13.5) fL Neut % (Auto) 65.9 (43.0-75.0) % Lymph % (Auto) 24.8 (20.5-60.0) % [place] % (Auto) 7.4 (1.7-12.0) % Eos % (Auto) 0.7 L (0.9-7.0) % Baso % (Auto) 0.7 (0.2-2.0) % Neut # (Auto) 7.1 H (1.4-6.5) 10^3/uL Lymph # (Auto) 2.7 (1.2-3.8) 10^3/uL [place] # (Auto) 0.8 (0.3-0.8) 10^3/uL Eos # (Auto) 0.1 (0.0-0.7) 10^3/uL Baso # (Auto) 0.1 (0.0-0.1) 10^3/uL Abs Immat Gran (auto) 0.05 H (0.00-0.03) 10^3/uL Imm/Tot Granulo (auto) 0.5 (0.0-0.5) % Sodium 146 H (136-145) mmol/L Potassium 3.3 L (3.5-5.1) mmol/L Chloride 104 (98-107) mmol/L Carbon Dioxide 32.4 H (21.0-32.0) mmol/L Anion Gap 12.9 BUN 13.0 (7.0-18.0) mg/dL Creatinine 1.11 H (0.55-1.02) mg/dL Est GFR ( Amer) 57 L (>=60 mL/min/1.73m^2) Est GFR (Non-Af Amer) 47 L (>=60 mL/min/1.73m^2) BUN/Creatinine Ratio 11.7 Glucose 105 (74-106) mg/dL Calcium 9.0 (8.5-10.1) mg/dL Total Bilirubin 0.4 (0.2-1.0) mg/dL Direct Bilirubin 0.1 (0.0-0.2) mg/dL AST 13 L (15-37) U/L ALT 7 L (14-59) U/L Alkaline Phosphatase 80 (46-116) U/L Total Protein 7.3 (6.4-8.2) g/dL Albumin 2.8 L (3.4-5.0) g/dL Globulin 4.5 g/dL Albumin/Globulin Ratio 0.6 Amylase 15 L (25-115) U/L Lipase 12.0 L (16.0-77.0) U/L Imaging Data CT scan - abdomen: Radiologist's impression: CT per radiologist: No acute process Discharge Plan Discharge Chief Complaint: Abdominal Pain Clinical Impression: Nausea & vomiting Patient Disposition: Home, Self-Care Time of Disposition Decision: 13:13 Condition: Good Mode of Transportation: Private Vehicle Prescriptions / Home Meds: New ondansetron 4 mg tablet,disintegrating 4 mg PO Q6H PRN (Reason: nausea and vomiting) Qty: 20 0RF No Action albuterol sulfate 90 mcg/actuation HFA aerosol inhaler 2 puff INHALATION Q4H PRN (Reason: shortness of breath or wheezing) pregabalin 75 mg capsule 75 mg PO BID cholecalciferol (vitamin D3) 50 mcg (2,000 unit) tablet 50 mcg PO DAILY melatonin 5 mg tablet 5 mg PO QPM polyethylene glycol 3350 [Miralax] 17 gram/dose powder 17 g PO DAILY PRN (Reason: constipation) Qty: 510 0RF carvedilol [Coreg] 25 mg tablet 25 mg PO BID 30 Days Qty: 60 0RF Rx Instructions: must administer with a meal/food Trelegy Ellipta 100-62.5-25 mcg blister with device 1 inh INHALATION QAM calcitonin (salmon) 200 unit/actuation Otto,Non-Aerosol 1 spray intranasal QD Qty: 3.7 11RF alendronate 70 mg tablet 70 mg PO .Weekly atorvastatin 40 mg tablet 40 mg PO DAILY bupropion HCl 300 mg tablet extended release 24 hr 300 mg PO DAILY cholecalciferol (vitamin D3) 50 mcg (2,000 unit) capsule 2,000 unit PO DAILY clopidogrel 75 mg tablet 75 mg PO DAILY furosemide 20 mg tablet 20 mg PO DAILY cefdinir 300 mg capsule 600 mg PO DAILY Qty: 20 0RF clindamycin HCl 300 mg capsule 300 mg PO Q6H 10 Days Qty: 40 0RF Print Language: Danish Instructions: Acute Nausea and Vomiting (ED) Referrals: AMOS ASLAS [Primary Care Provider] - 1 week
[2025-01-26] MEDS: 0.9 % SODIUM CHLORIDE 500 ML IV (10:11)
[2025-01-26 10:22] LABS: Basophils Absolute Auto 0.1 10^3/uL (0.0-0.1); Basophils Percent Auto 0.7 % (0.2-2.0); Eosinophils Absolute Auto 0.1 10^3/uL (0.0-0.7); Eosinophils Percent Auto 0.7 % (0.9-7.0); Hematocrit 34.5 % (36.0-48.0); Hemoglobin 10.6 g/dL (12.0-16.0); Immature Granulocytes Abs Auto 0.05 10^3/uL (0.00-0.03); Immature Granulocytes Pct Auto 0.5 % (0.0-0.5); Lymphocytes Absolute Auto 2.7 10^3/uL (1.2-3.8); Lymphocytes Percent Auto 24.8 % (20.5-60.0); Mean Corpuscular HGB Conc 30.7 g/dL (29.9-35.2); Mean Corpuscular Hemoglobin 26.3 pg (26.7-34.0); Mean Corpuscular Volume 85.6 fL (81.0-99.0); Mean Platelet Volume 9.1 fL (9.5-13.5); Monocytes Absolute Auto 0.8 10^3/uL (0.3-0.8); Monocytes Percent Auto 7.4 % (1.7-12.0); Neutrophils Absolute Auto 7.1 10^3/uL (1.4-6.5); Neutrophils Percent Auto 65.9 % (43.0-75.0); Platelet Count 330 10^3/uL (150-450); Red Blood Count 4.03 10^6/uL (4.20-5.40); Red Cell Distribution Width 15.3 % (11.0-15.0); White Blood Count 10.8 10^3/uL (4.0-11.0)
[2025-01-26 10:42] LABS: Alanine Aminotransferase 7 U/L (14-59); Albumin Globulin Ratio 0.6; Albumin Level 2.8 g/dL (3.4-5.0); Alkaline Phosphatase 80 U/L (46-116); Amylase 15 U/L (25-115); Anion Gap 12.9; Aspartate Amino Transferase 13 U/L (15-37); BUN Creatinine Ratio 11.7; Bilirubin Direct 0.1 mg/dL (0.0-0.2); Bilirubin Total 0.4 mg/dL (0.2-1.0); Carbon Dioxide 32.4 mmol/L (21.0-32.0); Chloride 104 mmol/L (98-107); Estimated GFR (African America 57 (>=60 mL/min/1.73m^2); Estimated GFR (Non-African Ame 47 (>=60 mL/min/1.73m^2); Globulin 4.5 g/dL; Glucose 105 mg/dL (74-106); Potassium 3.3 mmol/L (3.5-5.1); Sodium 146 mmol/L (136-145); Total Protein 7.3 g/dL (6.4-8.2)
--- NOTE | 2025-01-26 13:31 | PC.NURSE ---
IV d/c with cath intact. Pt requests we call daughter to pick her up. Call placed with no answer. Pt. reports she won't be off work until 2pm
== END 2025-01-26 13:42 | disposition home or self-care (01) ==
PROVIDERS: Emergency Provider Emergency Medicine; PCP Internal Medicine
DX: R11.2 Nausea with vomiting, unspecified (principal); R10.30 Lower abdominal pain, unspecified; Z87.891 Personal history of nicotine dependence
CPT/HCPCS: 36415; 74177; 80048; 80076; 82150; 83690; 85025; 96360; 99285; Q9967

== ENCOUNTER 2025-02-01 11:43 | Inpatient (IN) | payer MEDICARE, MEDICAID, SELFPAY ==
[2025-02-01] VITALS (28 sets, daily range): BP systolic 104–163; BP diastolic 57–108; PULSE 90–121; TEMP 36.4–36.9; O2SAT 29–100; BMI 35.2; BMI 36.2
--- NOTE | 2025-02-01 12:04 | ECG_ITS ---
The [facility] Test Date: 2025-02-01 Pat Name: GERA PERDUE Department: Room: - Gender: Female Microphone Operator: : 1945 Requested By: 0919 Order Number: [id number] Reading MD: CATHERINE STARR M.D. Measurements Intervals Lester Rate: 98 P: 66 HI: 152 QRS: 30 QRSD: 82 T: 150 QT: 322 QTc: 378 Interpretive Statements 1100 Sinus rhythm 4068 Nonspecific Twave abnormality 9130 borderline ECG Compared to ECG 12/17/2024 16:38:49 ST (T wave) deviation no longer present Electronically Signed On 02-01-2025 17:50:02 EDT by CATHERINE STARR M.D.
[2025-02-01 12:29] LABS: Basophils Absolute Auto 0.1 10^3/uL (0.0-0.1); Basophils Percent Auto 0.7 % (0.2-2.0); Eosinophils Absolute Auto 0.2 10^3/uL (0.0-0.7); Eosinophils Percent Auto 1.7 % (0.9-7.0); Hematocrit 36.6 % (36.0-48.0); Hemoglobin 11.1 g/dL (12.0-16.0); Immature Granulocytes Abs Auto 0.03 10^3/uL (0.00-0.03); Immature Granulocytes Pct Auto 0.3 % (0.0-0.5); Lymphocytes Absolute Auto 4.3 10^3/uL (1.2-3.8); Mean Corpuscular HGB Conc 30.3 g/dL (29.9-35.2); Mean Corpuscular Volume 85.7 fL (81.0-99.0); Mean Platelet Volume 8.9 fL (9.5-13.5); Monocytes Absolute Auto 0.9 10^3/uL (0.3-0.8); Monocytes Percent Auto 8.2 % (1.7-12.0); Neutrophils Absolute Auto 5.5 10^3/uL (1.4-6.5); Neutrophils Percent Auto 50.1 % (43.0-75.0); Platelet Count 368 10^3/uL (150-450); Red Blood Count 4.27 10^6/uL (4.20-5.40); Red Cell Distribution Width 15.5 % (11.0-15.0)
[2025-02-01 12:31] LABS: PCO2 VBG 52.4 mmHg (40.0-52.0); pH VBG 7.404 (7.330-7.430)
[2025-02-01] MEDS: MAGNESIUM SULFATE IN WATER 2 GM/50 ML PREMIX IV (12:37)
[2025-02-01] MEDS: LACTATED RINGER'S SOLUTION 1,000 ML 999 ML IV (12:37)
[2025-02-01] MEDS: METHYLPREDNISOLONE SOD SUCC PF 125 MG/2 ML VIAL IVP (12:37)
[2025-02-01 12:47] LABS: INR 1.11; Prothrombin Time 11.6 sec (9.0-11.6)
[2025-02-01 12:51] LABS: Alanine Aminotransferase 11 U/L (14-59); Albumin Globulin Ratio 0.6; Albumin Level 2.9 g/dL (3.4-5.0); Alkaline Phosphatase 86 U/L (46-116); Anion Gap 10.9; Aspartate Amino Transferase 14 U/L (15-37); BUN Creatinine Ratio 5.2; Bilirubin Total 0.3 mg/dL (0.2-1.0); Calcium 9.6 mg/dL (8.5-10.1); Chloride 102 mmol/L (98-107); Estimated GFR (African America 55 (>=60 mL/min/1.73m^2); Estimated GFR (Non-African Ame 45 (>=60 mL/min/1.73m^2); Globulin 4.5 g/dL; Glucose 94 mg/dL (74-106); Sodium 141 mmol/L (136-145); Total Protein 7.4 g/dL (6.4-8.2)
[2025-02-01] MEDS: HYDROCODONE/ACET 5-325 MG TABLET 1 TAB PO (12:52)
[2025-02-01 12:53] LABS: Lactate/Lactic Acid 1.4 mmol/L (0.4-2.0)
[2025-02-01 12:55] LABS: Bilirubin Urine NEGATIVE (NEGATIVE); Blood Urine NEGATIVE (NEGATIVE); Clarity Urine CLOUDY (CLEAR); Color Urine YELLOW (YELLOW); Glucose Urine UA NEGATIVE (NEGATIVE); Ketones Urine NEGATIVE (NEGATIVE); Leukocyte Esterase Urine SMALL (NEGATIVE); Nitrite Urine POSITIVE (NEGATIVE); Protein Urine 30 mg/dL (NEG/TRACE); Specific Gravity Urine >=1.030 (1.005-1.025); Urobilinogen Urine 0.2 EU/dL (0.2-1.0)
[2025-02-01 13:03] LABS: Magnesium 1.2 mg/dL (1.8-2.4); Troponin I High Sensitivity 12.4 pg/mL (4.0-51.3)
[2025-02-01 13:06] LABS: Potassium 2.9 mmol/L (3.5-5.1)
[2025-02-01 13:08] LABS: Mucus Urine MODERATE (NONE SEEN); RBC Urine NONE SEEN #/HPF (0-2); WBC Urine 20-50 #/HPF (NONE SEEN)
[2025-02-01 13:09] LABS: Bacteria Urine LARGE #/HPF (NONE SEEN); Cast Seen? SEEN #/LPF (NONE SEEN); Crystals Seen? None Seen #/HPF (None Seen); Hyaline Casts Urine RARE; Squamous Epithelial Cell Urine FEW #/LPF (NONE/RARE); Urine Culture Indicated YES-FRMC
[2025-02-01] MEDS: IPRATROPIUM/ALBUTEROL SULFATE 3 ML AMPUL.NEB IH ×4 (13:33→23:25)
[2025-02-01] MEDS: POTASSIUM BICARBONATE/CIT 25 MEQ TABLET EFF 50 MEQ PO (13:45)
[2025-02-01] MEDS: MAGNESIUM OXIDE 400 MG TABLET 800 MG PO (13:45)
[2025-02-01] MEDS: POTASSIUM CHLORIDE 40 MEQ in 0.9 % SODIUM CHLORIDE 1,000 ML 250 MEQ IV (13:45)
--- NOTE | 2025-02-01 13:50 | ED.GENADUL1 ---
HPI HPI - General Adult General Chief complaint: Shortness of Breath/Dyspnea Stated complaint: NAUSEA/VOMITING Time Seen by Provider: 02/01/25 12:04 Source: patient Mode of arrival: ambulance Limitations: physical limitation History of Present Illness HPI narrative: Patient is a 79-year-old female who is presenting by EMS from home. Patient lives at home with a few family members. Patient wears 3 L of nasal cannula at all times, she will increase it to 4 L if needed. She does have history of emphysema COPD. She was diagnosed with influenza last week. Patient has been nauseated and not drinking much fluids. Patient feels like her shortness of breath is getting worse as well. She has no chest pain or tightness. Positive shortness of breath. Patient has mild nausea, no vomiting. No diarrhea. Patient has no new swelling to her arms or legs. Patient has no other acute complaints. Patient came in by EMS. Patient is getting a breathing treatment when she is brought into the ER by EMS staff. All systems are negative except as noted/marked. All systems reviewed and otherwise negative. Nurses note and vital signs reviewed and patient is not hypoxic. General: The patient appears mild distress secondary to difficulty breathing, not feeling well, no respiratory distress. Patient is resting uncomfortably on cart. Patient is not toxic, lethargic, or listless Skin: Warm, dry, no pallor noted. There is no rash noted. No petechiae, purpura. Head: Normocephalic, atraumatic Eye: Normal conjunctiva, no drainage, EOMI. PERRL Ears, Nose, Mouth, and Throat: oral mucosa is very dry. Nares patent. Mouth without vesicles. No other intraoral pathology. Cardiovascular: Regular Rate and Rhythm, no murmur, gallop, rub Respiratory: Patient is in no distress, no accessory muscle use, lungs diminished bilateral, patient is producing audible wheezing, however she does have decreased breath sounds bilateral, diffuse wheezing bilateral bases, minimal rhonchi to the left lower base, no rales or crackles. Back: non-tender, no CVA tenderness bilaterally to percussion. No CT LS midline pain GI: Soft, nontender, obese, no tenderness to palpation, no masses appreciated. No flank pain bilateral. No rebound, guarding, or rigidity noted. No distention Musculoskeletal: Patient has full range of motion of all of the extremities, no motor, sensory, or focal neurological deficits. Generalized swelling equal, bilateral lower extremities. Neurological: A&O x4, normal speech Psychiatric: Cooperative Related Data Home Medications ?Medication ?Instructions ?Recorded ?Confirmed albuterol sulfate 90 mcg/actuation 2 puff inhalation Q4H PRN 08/28/23 02/01/25 aerosol inhaler shortness of breath or wheezing cholecalciferol (vitamin D3) 50 50 mcg PO DAILY 08/28/23 02/01/25 mcg (2,000 unit) tablet melatonin 5 mg tablet 5 mg PO QPM 08/14/24 02/01/25 alendronate 70 mg tablet 70 mg PO WE@0730 12/07/24 02/01/25 atorvastatin 40 mg tablet 40 mg PO DAILY 12/07/24 02/01/25 bupropion HCl 300 mg 24 hr tablet, 300 mg PO DAILY 12/07/24 02/01/25 extended release clopidogrel 75 mg tablet 75 mg PO DAILY 12/07/24 02/01/25 furosemide 20 mg tablet 20 mg PO DAILY 12/07/24 02/01/25 dapagliflozin propanediol 10 mg 10 mg PO DAILY 02/01/25 02/01/25 tablet (Farxiga) fluticasone 250 mcg-salmeterol 50 1 inh inhalation BID 02/01/25 02/01/25 mcg/dose blistr powdr for inhalation hydrocodone 5 mg-acetaminophen 325 1 tab PO Q6H PRN pain 02/01/25 02/01/25 mg tablet metoprolol succinate 25 mg 25 mg PO DAILY 02/01/25 02/01/25 tablet,extended release 24 hr pantoprazole 40 mg tablet,delayed 40 mg PO DAILY 02/01/25 02/01/25 release paroxetine HCl 40 mg tablet 40 mg PO DAILY 02/01/25 02/01/25 sacubitril 24 mg-valsartan 26 mg 1 tab PO BID 02/01/25 tablet (Entresto) umeclidinium 62.5 mcg/actuation 1 inh inhalation DAILY 02/01/25 02/01/25 blister powder for inhalation (Incruse Ellipta) Previous Rx's ?Medication ?Instructions ?Recorded polyethylene glycol 3350 17 17 g PO DAILY PRN constipation 10/01/24 gram/dose oral powder (Miralax) #510 grams ondansetron 4 mg disintegrating 4 mg PO Q6H PRN nausea and 01/26/25 tablet vomiting #20 tabs Allergies Allergy/AdvReac Type Severity Reaction Status Date / Time aspirin Allergy Severe Hives Verified 02/01/25 11:51 Opioid HPI Opioid Management Most Recent Opioid Data: Last Pain Scale 10 02/01/25 12:52 02/01/25 Last Pain Intensity 2 10/13/24 13:10 10/13/24 Last MAR Pain Assessment 02/01/25 12:52 Last ORT Total Score 0 12/13/24 19:36 12/13/24 Last ORT Risk Category Low Risk 12/13/24 19:36 12/13/24 PFSH PFS Medical History Chest congestion ?R09.89 - Other specified symptoms and signs involving the circulatory and respiratory systems (ICD-10) Knee osteoarthritis ?M17.9 - Osteoarthritis of knee, unspecified (ICD-10) Acute hyperkalemia ?E87.5 - Hyperkalemia (ICD-10) Weakness ?R53.1 - Weakness (ICD-10) Acute UTI ?N39.0 - Urinary tract infection, site not specified (ICD-10) Dehydration ?E86.0 - Dehydration (ICD-10) Nausea ?R11.0 - Nausea (ICD-10) 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 - Streptococcal infection, unspecified site (ICD-10) ?Z16.21 - Resistance to vancomycin (ICD-10) COPD with acute exacerbation ?J44.1 - Chronic obstructive pulmonary disease with (acute) exacerbation (ICD-10) Elevated blood pressure reading without diagnosis of hypertension ?R03.0 - Elevated blood-pressure reading, without diagnosis of hypertension (ICD-10) Bacteremia due to Staphylococcus ?R78.81 - Bacteremia (ICD-10) ?B95.8 - Unspecified staphylococcus as the cause of diseases classified elsewhere (ICD-10) Nausea & vomiting ?R11.2 - Nausea with vomiting, unspecified (ICD-10) Acute UTI (urinary tract infection) ?N39.0 - Urinary tract infection, site not specified (ICD-10) Dyspnea ?R06.00 - Dyspnea, unspecified (ICD-10) Compression fracture Back pain ?M54.9 - Dorsalgia, unspecified (ICD-10) Strain of lumbar region ?S39.012A - Strain of muscle, fascia and tendon of lower back, initial encounter (ICD-10) Elevated d-dimer ?R79.89 - Other specified abnormal findings of blood chemistry (ICD-10) Pneumonia ?J18.9 - Pneumonia, unspecified organism (ICD-10) Chronic respiratory failure with hypoxia ?J96.11 - Chronic respiratory failure with hypoxia (ICD-10) Anemia ?D64.9 - Anemia, unspecified (ICD-10) HLD (hyperlipidemia) ?E78.5 - Hyperlipidemia, unspecified (ICD-10) HTN (hypertension) ?I10 - Essential (primary) hypertension (ICD-10) Surgical History History of colon surgery ?Z98.890 - Other specified postprocedural states (ICD-10) Family History Grandmother Family history of CHF (congestive heart failure) Family history of cancer Family history of hypertension Family history of myocardial infarction Mother Family history of CHF (congestive heart failure) Family history of cancer Family history of hypertension Family history of myocardial infarction Uncle Family history of COPD (chronic obstructive pulmonary disease) Aunt Family history of cancer Social History Within the past year, how often did you have a drink containing alcohol: never Within the past year, how often did you have six or more drinks on one occasion: never Score interpretation: A score less than 3 is consistent with normal alcohol consumption. 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 Highest level of school completed/degree received: 11th grade Are you now , , , , never or living with a partner: In a typical week, how many times do you talk on the telephone with family, friends, or neighbors: 3 or more times per week How often do you get together with friends or relatives: 3 or more times per week How often do you attend baptism or mormon services: 1-3 times per year Do you belong to any clubs or organizations such as baptism groups unions, [employer] or athletic groups, or school groups: yes Total score: 2 Score interpretation: A score of greater than or equal to 2 indicates the lowest level of social isolation. Little interest or pleasure in doing things: not at all Feeling down, depressed, or hopeless: not at all Feel stressed/tense/nervous/anxious/difficulty sleeping: to some extent Do you think of yourself as: decline to answer Gender Identity: female Exam Constitutional Vital Signs, click to edit/add: Last Vital Signs Temp 98.4 F 02/01/25 12:38 Pulse 98 H 02/01/25 13:51 Resp 20 02/01/25 13:51 BP 142/75 H 02/01/25 13:51 Pulse Ox 29 L 02/01/25 13:51 O2 Del Method Nasal Cannula 02/01/25 11:47 O2 Flow Rate 4 02/01/25 11:47 Course Vital Signs Vital signs: Vital Signs Temperature 98.1 F 02/01/25 11:47 Pulse Rate 105 H 02/01/25 11:47 Respiratory Rate 24 H 02/01/25 11:47 Blood Pressure 163/108 H 02/01/25 11:47 Pulse Oximetry 97 02/01/25 11:47 Oxygen Delivery Method Nasal Cannula 02/01/25 11:47 Oxygen Delivery Flow Rate 4 02/01/25 11:47 Temperature 98.4 F 02/01/25 12:38 Pulse Rate 98 H 02/01/25 13:51 Respiratory Rate 20 02/01/25 13:51 Blood Pressure 142/75 H 02/01/25 13:51 Pulse Oximetry 29 L 02/01/25 13:51 Oxygen Delivery Method Nasal Cannula 02/01/25 11:47 Oxygen Delivery Flow Rate 4 02/01/25 11:47 Medical Decision Making [facility] Narrative Medical decision making narrative: Patient seen and examined: Patient will have septic protocol placed. Patient normally wears 3 L of nasal cannula during the day and at nighttime, patient has 4 L of nasal cannula at this time. Patient was given a breathing treatment by EMS staff. Patient will have IV, lab work done, chest x-ray, additional breathing treatments, IV fluids, sign Medrol magnesium. Patient was diagnosed with influenza last week, she is feeling outpatient treatment. Differential diagnosis includes but is not limited to: Influenza, bronchitis, congestive heart failure, pneumonia, AL, dehydration, electrolyte abnormality, UTI, kidney stone, ARTURO Diagnostics and management: Patient will have laboratory studies Relevant laboratory interpretation: Patient's pH was 7.4; CO2 52, sodium 141, potassium 2.9, BUN 6, creatinine 1.16, magnesium 1.2; + UTI Radiological studies: Please see the formal radiological report. Chest x-ray shows no acute cardiopulmonary disease, no infiltrate, no effusion. Reevaluation: Patient was given 1 L of IV fluid. Patient was given IV magnesium, IV potassium. Oral potassium oral magnesium. Patient was given additional DuoNeb breathing treatments, IV Solu-Medrol and IV magnesium to help. Patient does feel better after IV fluids and DuoNeb's. Patient has been given ice chips. Shared decision making: I discussed with the patient the necessary laboratory findings and radiological findings. Social barriers to healthcare: There are no food insecurities, there is no issue with transportation, there are no insurance barriers. Disposition: I discussed with the patient admission. Patient has followed outpatient therapy with influenza treatment at home. Patient will be admitted inpatient [facility] telemetry to Dr. Plascencia. Patient has been on continuous cardiac monitoring, along with giving IV magnesium and IV potassium. Dr Plascencia stated that she will put the antibiotic in for UTI. She will see and evaluate the patient. Critical care time 33 minutes exclusive from separate billable procedures that were performed. The following was considered in the determination of critical care but not limited to the level of medical decision making, intensive cardiac and/or respiratory monitoring, frequent vital sign monitoring, evaluation of laboratory studies, evaluation of radiographic studies, oxygen monitoring, and constant monitoring and speaking to family at bedside Lab Data Lab results reviewed: Yes I reviewed the patient's lab results Labs: Lab Results 02/01/25 02/01/25 Range/Units 12:04 12:35 WBC 11.0 (4.0-11.0) 10^3/uL RBC 4.27 (4.20-5.40) 10^6/uL Hgb 11.1 L (12.0-16.0) g/dL Hct 36.6 (36.0-48.0) % MCV 85.7 (81.0-99.0) fL MCH 26.0 L (26.7-34.0) pg MCHC 30.3 (29.9-35.2) g/dL RDW 15.5 H (11.0-15.0) % Plt Count 368 (150-450) 10^3/uL MPV 8.9 L (9.5-13.5) fL Neut % (Auto) 50.1 (43.0-75.0) % Lymph % (Auto) 39.0 (20.5-60.0) % [place] % (Auto) 8.2 (1.7-12.0) % Eos % (Auto) 1.7 (0.9-7.0) % Baso % (Auto) 0.7 (0.2-2.0) % Neut # (Auto) 5.5 (1.4-6.5) 10^3/uL Lymph # (Auto) 4.3 H (1.2-3.8) 10^3/uL [place] # (Auto) 0.9 H (0.3-0.8) 10^3/uL Eos # (Auto) 0.2 (0.0-0.7) 10^3/uL Baso # (Auto) 0.1 (0.0-0.1) 10^3/uL Abs Immat Gran (auto) 0.03 (0.00-0.03) 10^3/uL Imm/Tot Granulo (auto) 0.3 (0.0-0.5) % PT 11.6 (9.0-11.6) sec INR 1.11 VBG pH 7.404 (7.330-7.430) VBG pCO2 52.4 H (40.0-52.0) mmHg Sodium 141 (136-145) mmol/L Potassium 2.9 L* (3.5-5.1) mmol/L Chloride 102 (98-107) mmol/L Carbon Dioxide 31.0 (21.0-32.0) mmol/L Anion Gap 10.9 BUN 6.0 L (7.0-18.0) mg/dL Creatinine 1.16 H (0.55-1.02) mg/dL Est GFR ( Amer) 55 L (>=60 mL/min/1.73m^2) Est GFR (Non-Af Amer) 45 L (>=60 mL/min/1.73m^2) BUN/Creatinine Ratio 5.2 Glucose 94 (74-106) mg/dL Lactate 1.4 (0.4-2.0) mmol/L Calcium 9.6 (8.5-10.1) mg/dL Magnesium 1.2 L (1.8-2.4) mg/dL Total Bilirubin 0.3 (0.2-1.0) mg/dL AST 14 L (15-37) U/L ALT 11 L (14-59) U/L Alkaline Phosphatase 86 (46-116) U/L Troponin I High Sens 12.4 (4.0-51.3) pg/mL NT-Pro-B Natriuret Pep 398.0 (<=1800.0) pg/mL Total Protein 7.4 (6.4-8.2) g/dL Albumin 2.9 L (3.4-5.0) g/dL Globulin 4.5 g/dL Albumin/Globulin Ratio 0.6 Urine Color Yellow (YELLOW) Urine Clarity Cloudy A (CLEAR) Urine pH 6.0 (5.0-9.0) Ur Specific [place] >=1.030 A (1.005-1.025) Urine Protein 30 A (NEG/TRACE) mg/dL Urine Glucose (UA) Negative (NEGATIVE) mg/dL Urine Ketones Negative (NEGATIVE) mg/dL Urine Occult Blood Negative (NEGATIVE) Urine Nitrite Positive A (NEGATIVE) Urine Bilirubin Negative (NEGATIVE) Urine Urobilinogen 0.2 (0.2-1.0) EU/dL Ur Leukocyte Esterase Small A (NEGATIVE) Urine RBC None seen (0-2) #/HPF Urine WBC 20-50 A (NONE SEEN) #/HPF Ur Squamous Epith Cells Few A (NONE/RARE) #/LPF Urine Crystals None seen (None Seen) #/HPF Urine Bacteria Large A (NONE SEEN) #/HPF Urine Casts Seen A (NONE SEEN) #/LPF Hyaline Casts Rare Urine Mucus Moderate A (NONE SEEN) Ur Culture Indicated? Yes-[facility] [place] ECG Data Attestation: I personally reviewed and interpreted this ECG as follows: (EKG interpretation. Normal sinus rhythm at 98 beats a minute. Normal axis deviation. No acute ST elevation, no acute ectopy. QTc of 378) Discharge Plan Discharge Chief Complaint: Shortness of Breath/Dyspnea Clinical Impression: Hypoxia, COPD (chronic obstructive pulmonary disease), Hypokalemia, Hypomagnesuria, Dyspnea, Nausea, Acute UTI, Influenza
[2025-02-01] MEDS: ONDANSETRON PF 4 MG/2 ML VIAL IV (13:58)
--- NOTE | 2025-02-01 14:19 | PM.HP ---
HPI H&P: HPI History of Present Illness Chief complaint: NAUSEA/VOMITING HYPOXIA ELECTROLYTE ABNORMALITY Narrative: 79 yo female with hx of chronic resp failure with hypoxia on 3 L and COPD, HTN, CHF, chronic back pain, CAD, depression, osteoporosis who has recently been admitted to this facility on 12/08 and 12/14 for UTI and cellulitis. She comes to the ER today for nausea and vomiting with dry heaves for 2 weeks. She denies diarrhea, fever but feels like she has chills, and weakness. She usually is able to get around using a walker at home but has become weak. She also notes shortness of breath has increased when walking. In the ER she was tachypneic at 34 RR and pulse ox was 85% on 3L so she was turned up to 4L and has been in the 90's. Patient was also tachycardic at 105. ER findings: WBC's 11, hb 11.1, K 2.9, Cr 1.16, BUN 6, mag 1.2, Trop 12.4, proBNP 398. UA was also positive. Previous cultures have been positive for Klebsiella and VRE. Recent CT of the Abd/pelvis on 01/26/25 showed no acute process. Chest X ray was also negative for acute process. Patient is short of breath with conversing. She also mentions being in the hospital at [facility] recently but i have no record of this. Will have staff gather records. Opioid HPI Opioid Management Most Recent Pain and Opioid Data: Last Pain Scale 10 02/01/25 12:52 02/01/25 Last Pain Intensity 2 10/13/24 13:10 10/13/24 Last Pain Assessment 02/01/25 15:06 Last MAR Pain Assessment 02/01/25 12:52 Last ORT Total Score 0 02/01/25 15:06 02/01/25 Last ORT Risk Category Low Risk 02/01/25 15:06 02/01/25 Review of Systems ROS Narrative ROS: a complete review of systems were reviewed with patient and are positive as below or listed in History of Chief Complaint. General: no fever, but chills Head: no headache, trauma, visual changes Skin: no reported rashes, itching or sores Eyes: no blurriness of vision Ears: no reported hearing loss, vertigo, earache, or tinnitus Throat: no sore throat, hoarseness, swelling of neck, or tongue pain Heart: no chest pain Lungs: shortness of breath and cough GI: no diarrhea but vomiting/nausea Urinary: no urinary urgency, frequency or pain Neuro: no numbness or tingling HEM: no bleeding issues or bruising ENDO: no thyroid problems Psych: anxiety or depression [facility] Medical History (Updated 02/01/25 @ 15:50 by Lilliam Plascencia DO) Class 2 obesity ?E66.812 - Obesity, class 2 (ICD-10) Essential (primary) hypertension ?I10 - Essential (primary) hypertension (ICD-10) CAD (coronary artery disease), [place] coronary artery ?I25.10 - Atherosclerotic heart disease of [place] coronary artery without angina pectoris (ICD-10) Chronic heart failure with preserved ejection fraction (HFpEF) ?I50.32 - Chronic diastolic (congestive) heart failure (ICD-10) ARMAND (obstructive sleep apnea) ?G47.33 - Obstructive sleep apnea (adult) (pediatric) (ICD-10) COPD (chronic obstructive pulmonary disease) ?J44.9 - Chronic obstructive pulmonary disease, unspecified (ICD-10) Chest congestion ?R09.89 - Other specified symptoms and signs involving the circulatory and respiratory systems (ICD-10) Knee osteoarthritis ?M17.9 - Osteoarthritis of knee, unspecified (ICD-10) Acute hyperkalemia ?E87.5 - Hyperkalemia (ICD-10) Weakness ?R53.1 - Weakness (ICD-10) Acute UTI ?N39.0 - Urinary tract infection, site not specified (ICD-10) Dehydration ?E86.0 - Dehydration (ICD-10) Nausea ?R11.0 - Nausea (ICD-10) 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 - Streptococcal infection, unspecified site (ICD-10) ?Z16.21 - Resistance to vancomycin (ICD-10) Elevated blood pressure reading without diagnosis of hypertension ?R03.0 - Elevated blood-pressure reading, without diagnosis of hypertension (ICD-10) Bacteremia due to Staphylococcus ?R78.81 - Bacteremia (ICD-10) ?B95.8 - Unspecified staphylococcus as the cause of diseases classified elsewhere (ICD-10) Dyspnea ?R06.00 - Dyspnea, unspecified (ICD-10) Compression fracture Back pain ?M54.9 - Dorsalgia, unspecified (ICD-10) Strain of lumbar region ?S39.012A - Strain of muscle, fascia and tendon of lower back, initial encounter (ICD-10) Elevated d-dimer ?R79.89 - Other specified abnormal findings of blood chemistry (ICD-10) Pneumonia ?J18.9 - Pneumonia, unspecified organism (ICD-10) Chronic respiratory failure with hypoxia ?J96.11 - Chronic respiratory failure with hypoxia (ICD-10) Anemia ?D64.9 - Anemia, unspecified (ICD-10) HLD (hyperlipidemia) ?E78.5 - Hyperlipidemia, unspecified (ICD-10) HTN (hypertension) ?I10 - Essential (primary) hypertension (ICD-10) Surgical History History of cholecystectomy ?Z90.49 - Acquired absence of other specified parts of digestive tract (ICD-10) History of colon surgery ?Z98.890 - Other specified postprocedural states (ICD-10) Family History Grandmother Family history of CHF (congestive heart failure) Family history of cancer Family history of hypertension Family history of myocardial infarction Mother Family history of CHF (congestive heart failure) Family history of cancer Family history of hypertension Family history of myocardial infarction Uncle Family history of COPD (chronic obstructive pulmonary disease) Aunt Family history of cancer Social History Within the past year, how often did you have a drink containing alcohol: never Within the past year, how often did you have six or more drinks on one occasion: never Score interpretation: A score less than 3 is consistent with normal alcohol consumption. 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 Highest level of school completed/degree received: 11th grade Are you now , , , , never or living with a partner: In a typical week, how many times do you talk on the telephone with family, friends, or neighbors: 3 or more times per week How often do you get together with friends or relatives: 3 or more times per week How often do you attend congregational or voodoo services: 1-3 times per year Do you belong to any clubs or organizations such as congregational groups unions, fraternal or athletic groups, or school groups: yes Total score: 2 Score interpretation: A score of greater than or equal to 2 indicates the lowest level of social isolation. Little interest or pleasure in doing things: not at all Feeling down, depressed, or hopeless: not at all Feel stressed/tense/nervous/anxious/difficulty sleeping: to some extent Do you think of yourself as: decline to answer Gender Identity: female Meds Home Medications and Allergies Home Medications ?Medication ?Instructions ?Recorded ?Confirmed ?Type albuterol sulfate 90 mcg/actuation 2 puff inhalation Q4H PRN 08/28/23 02/01/25 History aerosol inhaler shortness of breath or wheezing cholecalciferol (vitamin D3) 50 50 mcg PO DAILY 08/28/23 02/01/25 History mcg (2,000 unit) tablet melatonin 5 mg tablet 5 mg PO QPM 08/14/24 02/01/25 History polyethylene glycol 3350 17 17 g PO DAILY PRN constipation 10/01/24 02/01/25 Rx gram/dose oral powder (Miralax) #510 grams alendronate 70 mg tablet 70 mg PO WE@0730 12/07/24 02/01/25 History atorvastatin 40 mg tablet 40 mg PO DAILY 12/07/24 02/01/25 History bupropion HCl 300 mg 24 hr tablet, 300 mg PO DAILY 12/07/24 02/01/25 History extended release clopidogrel 75 mg tablet 75 mg PO DAILY 12/07/24 02/01/25 History furosemide 20 mg tablet 20 mg PO DAILY 12/07/24 02/01/25 History ondansetron 4 mg disintegrating 4 mg PO Q6H PRN nausea and 01/26/25 02/01/25 Rx tablet vomiting #20 tabs dapagliflozin propanediol 10 mg 10 mg PO DAILY 02/01/25 02/01/25 History tablet (Farxiga) fluticasone 250 mcg-salmeterol 50 1 inh inhalation BID 02/01/25 02/01/25 History mcg/dose blistr powdr for inhalation hydrocodone 5 mg-acetaminophen 325 1 tab PO Q6H PRN pain 02/01/25 02/01/25 History mg tablet metoprolol succinate 25 mg 25 mg PO DAILY 02/01/25 02/01/25 History tablet,extended release 24 hr pantoprazole 40 mg tablet,delayed 40 mg PO DAILY 02/01/25 02/01/25 History release paroxetine HCl 40 mg tablet 40 mg PO DAILY 02/01/25 02/01/25 History sacubitril 24 mg-valsartan 26 mg 1 tab PO BID 02/01/25 02/01/25 History tablet (Entresto) umeclidinium 62.5 mcg/actuation 1 inh inhalation DAILY 02/01/25 02/01/25 History blister powder for inhalation (Incruse Ellipta) Allergies Allergy/AdvReac Type Severity Reaction Status Date / Time aspirin Allergy Severe Hives Verified 02/01/25 11:51 Exam Narrative Exam Narrative: General: Patient is alert, and oriented to person, place and time short of breath with conversing Skin: no visible rashes, or ulcers Head: atraumatic, acephalic Eyes: PERRLA, no nystagmus present, conjunctiva clear, no scleral icterus Ears: normal gross auditory acuity Heart: Normal rate and rhythm, no murmurs/rubs/gallops Lungs: audible wheezes, crackles and diminished breath sounds all lung felipe Abdomen: Normal audible bowel sounds, no distension, No palpable masses, no organomegaly, no rebound/guarding/ or rigidity Musculoskeletal: no swelling bilateral lower extremities Neuro: CN II-X grossly intact, normal sensation upper Constitutional Vital Signs, click to edit/add: Last Vital Signs Temp 98.4 F 02/01/25 12:38 Pulse 98 H 02/01/25 13:51 Resp 20 02/01/25 13:51 BP 142/75 H 02/01/25 13:51 Pulse Ox 29 L 02/01/25 13:51 O2 Del Method Nasal Cannula 02/01/25 11:47 O2 Flow Rate 4 02/01/25 11:47 Results Labs Labs: Short CBC 02/01/25 Range/Units 12:04 WBC 11.0 (4.0-11.0) 10^3/uL Hgb 11.1 L (12.0-16.0) g/dL Hct 36.6 (36.0-48.0) % Plt Count 368 (150-450) 10^3/uL BMP 02/01/25 12:04 Sodium 141 Potassium 2.9 L* Chloride 102 Carbon Dioxide 31.0 BUN 6.0 L Creatinine 1.16 H Glucose 94 Calcium 9.6 Liver Function 02/01/25 Range/Units 12:04 Total Bilirubin 0.3 (0.2-1.0) mg/dL AST 14 L (15-37) U/L ALT 11 L (14-59) U/L Alkaline Phosphatase 86 (46-116) U/L Albumin 2.9 L (3.4-5.0) g/dL Urine 02/01/25 Range/Units 12:35 Urine Color Yellow (YELLOW) Urine Clarity Cloudy A (CLEAR) Urine pH 6.0 (5.0-9.0) Ur Specific [place] >=1.030 A (1.005-1.025) Urine Protein 30 A (NEG/TRACE) mg/dL Urine Glucose (UA) Negative (NEGATIVE) mg/dL ABG ABG results: 02/01/25 12:04 VBG pH 7.404 VBG pCO2 52.4 H Assessment and Plan Assessment and Plan (1) COPD with acute exacerbation: Assessment and Plan: Patient with normal chest X-ray but with SOB, cough and worsening hypoxia. Start Doxycycline 100mg IV BID, duonebs, pulmicort, PRN albuterol and OPEP. Solumedrol 40mg IV [id number]. (2) Acute and chronic respiratory failure with hypoxia: Assessment and Plan: due to #1, patient with tachypnea to 30, sats dropped to 85% on 3L now on 4L. Monitor status closely. (3) Hypomagnesuria: Assessment and Plan: Mag was 1.2, started 2gram IV mag, recheck level (4) Hypokalemia: Assessment and Plan: given oral 50mEQ x 1 and 40MEQ IV, recheck level at 1800 (5) ARTURO (acute kidney injury): Assessment and Plan: cr 1.16 slightly elevated above normal 0.98. monitor (6) Acute UTI (urinary tract infection): Assessment and Plan: history of klebsiella and VRE, will get culture, treat with rocephine 1gram IV (7) Nausea & vomiting: Assessment and Plan: zofran as needed. due to being on several antibiotics over the last few months, check C diff when possible; recent ct scan was negative Qualifiers: Vomiting type: unspecified Qualified Code(s): R11.2 - Nausea with vomiting, unspecified (8) Essential (primary) hypertension: Assessment and Plan: continue metoprolol (9) CAD (coronary artery disease), k[place] coronary artery: Assessment and Plan: recent heart cath at [facility] for NSTEMI, continue plavix, atrovastatin Qualifiers: [place] vs. transplanted heart: koi heart Associated angina: without angina Qualified Code(s): I25.10 - Atherosclerotic heart disease of [place] coronary artery without angina pectoris (10) Chronic heart failure with preserved ejection fraction (HFpEF): Assessment and Plan: normal trop and proBNP, no fluids, monitor for acute signs of heart failure, continue lasix, metoprolol (11) Back pain: Assessment and Plan: continue home medications for chronic condition Qualifiers: Back pain laterality: left Back pain location: thoracic back pain Chronicity: acute Qualified Code(s): M54.6 - Pain in thoracic spine Plan patient is DNRCCA continue heparin for DVT prophylaxis Patient is inpatient status and is expected to cross 2 midnights for hospital necessary care.
[2025-02-01] MEDS: CEFTRIAXONE 1,000 MG in 0.9 % SODIUM CHLORIDE 50 ML 100 MG IV (17:05)
[2025-02-01] MEDS: DOXYCYCLINE HYCLATE 100 MG in 0.9 % SODIUM CHLORIDE 100 ML IV (17:05)
[2025-02-01] MEDS: METHYLPREDNISOLONE SOD SUCC PF 40 MG/ML VIAL IVP (17:05)
[2025-02-01 18:14] LABS: Potassium 3.7 mmol/L (3.5-5.1)
[2025-02-01] MEDS: DIPHENHYDRAMINE HCL 50 MG/ML VIAL 25 MG IVP (20:27)
[2025-02-01] MEDS: ONDANSETRON 4 MG RAPDIS TABLET PO (20:27)
[2025-02-01] MEDS: HEPARIN SODIUM (PORCINE) 5,000 UNIT/ML VIAL 5000 UNIT SUBQ (21:00)
[2025-02-01] MEDS: SACUBITRIL/VALSARTAN 24 MG-26 MG TABLET 1 TAB PO (21:00)
[2025-02-01] MEDS: BUDESONIDE 0.5 MG/2 ML AMPULE NEB IH (23:25)
[2025-02-02] VITALS (21 sets, daily range): BP systolic 110–122; BP diastolic 67–82; PULSE 73–105; TEMP 36.2–36.8; O2SAT 87–95
[2025-02-02] MEDS: METHYLPREDNISOLONE SOD SUCC PF 40 MG/ML VIAL IVP ×4 (00:23→21:25)
[2025-02-02] MEDS: ACETAMINOPHEN 500 MG TABLET 1000 MG PO ×2 (03:52→20:46)
[2025-02-02] MEDS: ONDANSETRON 4 MG RAPDIS TABLET PO (03:53)
[2025-02-02] MEDS: DOXYCYCLINE HYCLATE 100 MG in 0.9 % SODIUM CHLORIDE 100 ML IV ×2 (03:54→15:15)
[2025-02-02] MEDS: IPRATROPIUM/ALBUTEROL SULFATE 3 ML AMPUL.NEB IH ×4 (05:16→22:23)
[2025-02-02 06:21] LABS: Basophils Percent Auto 0.2 % (0.2-2.0); Eosinophils Percent Auto 0.2 % (0.9-7.0); Hematocrit 32.7 % (36.0-48.0); Hemoglobin 9.9 g/dL (12.0-16.0); Immature Granulocytes Abs Auto 0.04 10^3/uL (0.00-0.03); Immature Granulocytes Pct Auto 0.6 % (0.0-0.5); Lymphocytes Percent Auto 15.7 % (20.5-60.0); Mean Corpuscular HGB Conc 30.3 g/dL (29.9-35.2); Mean Corpuscular Hemoglobin 25.9 pg (26.7-34.0); Mean Corpuscular Volume 85.6 fL (81.0-99.0); Mean Platelet Volume 9.3 fL (9.5-13.5); Monocytes Absolute Auto 0.1 10^3/uL (0.3-0.8); Monocytes Percent Auto 1.4 % (1.7-12.0); Neutrophils Absolute Auto 5.1 10^3/uL (1.4-6.5); Neutrophils Percent Auto 81.9 % (43.0-75.0); Platelet Count 320 10^3/uL (150-450); Red Blood Count 3.82 10^6/uL (4.20-5.40); Red Cell Distribution Width 15.6 % (11.0-15.0); White Blood Count 6.3 10^3/uL (4.0-11.0)
[2025-02-02 06:40] LABS: Alanine Aminotransferase <6 U/L (14-59); Albumin Globulin Ratio 0.6; Albumin Level 2.5 g/dL (3.4-5.0); Alkaline Phosphatase 75 U/L (46-116); Anion Gap 8.4; Aspartate Amino Transferase 13 U/L (15-37); BUN Creatinine Ratio 6.9; Bilirubin Total 0.2 mg/dL (0.2-1.0); Carbon Dioxide 31.4 mmol/L (21.0-32.0); Chloride 105 mmol/L (98-107); Estimated GFR (African America 55 (>=60 mL/min/1.73m^2); Estimated GFR (Non-African Ame 45 (>=60 mL/min/1.73m^2); Glucose 208 mg/dL (74-106); Magnesium 1.7 mg/dL (1.8-2.4); Potassium 3.8 mmol/L (3.5-5.1); Sodium 141 mmol/L (136-145); Total Protein 6.5 g/dL (6.4-8.2)
[2025-02-02] MEDS: PAROXETINE HCL 20 MG TABLET 40 MG PO (08:11)
[2025-02-02] MEDS: BUPROPION HCL 150 MG XL TABLET 24H 300 MG PO (08:11)
[2025-02-02] MEDS: CLOPIDOGREL BISULFATE 75 MG TABLET PO (08:11)
[2025-02-02] MEDS: ATORVASTATIN CALCIUM 40 MG TABLET PO (08:11)
[2025-02-02] MEDS: METOPROLOL SUCCINATE 25 MG TAB.ER.24H PO (08:12)
[2025-02-02] MEDS: PANTOPRAZOLE SODIUM 40 MG TABLET.DR PO (08:12)
[2025-02-02] MEDS: SACUBITRIL/VALSARTAN 24 MG-26 MG TABLET 1 TAB PO ×2 (08:12→20:46)
[2025-02-02] MEDS: HEPARIN SODIUM (PORCINE) 5,000 UNIT/ML VIAL 5000 UNIT SUBQ ×2 (08:12→20:46)
[2025-02-02] MEDS: FUROSEMIDE 20 MG TABLET PO (08:12)
--- NOTE | 2025-02-02 09:04 | PM.PN ---
Progress Note: Subjective Subjective Interval history: Patient is sitting in the chair with legs elevated. She reports increased cough today. She is requesting cough medication and orange juice. Also she says her bowels have not moved and would like something for those. I told her she has some miralax and colace PRN to try. She also notes increased swelling in her bilateral lower ext. She is less short of breath today and is back to her 3L of [place] oxygen baseline. Afebrile. Exam Narrative Exam Narrative: General: Patient is alert, and oriented to person, place and time Skin: no visible rashes, or ulcers Head: atraumatic, acephalic Eyes: PERRLA, no nystagmus present, conjunctiva clear, no scleral icterus Ears: normal gross auditory acuity Heart: Normal rate and rhythm, no murmurs/rubs/gallops Lungs: audible wheezes, crackles and diminished breath sounds all lung felipe Abdomen: Normal audible bowel sounds, no distension, No palpable masses, no organomegaly, no rebound/guarding/ or rigidity Musculoskeletal: +1 pitting/ swelling bilateral lower extremities Neuro: CN II-X grossly intact Constitutional Vital Signs, click to edit/add: Last Vital Signs Temp 98.3 F 02/02/25 08:15 Pulse 102 H 02/02/25 08:15 Resp 18 02/02/25 08:15 BP 122/70 02/02/25 08:15 Pulse Ox 91 L 02/02/25 08:15 O2 Del Method Nasal Cannula 02/02/25 08:15 O2 Flow Rate 3 02/02/25 08:15 Progress Note: Objective Labs Labs: Short CBC 02/01/25 02/02/25 Range/Units 12:04 06:02 WBC 11.0 6.3 (4.0-11.0) 10^3/uL Hgb 11.1 L 9.9 L (12.0-16.0) g/dL Hct 36.6 32.7 L (36.0-48.0) % Plt Count 368 320 (150-450) 10^3/uL BMP 02/01/25 02/01/25 02/02/25 12:04 17:59 06:02 Sodium 141 141 Potassium 2.9 L* 3.7 3.8 Chloride 102 105 Carbon Dioxide 31.0 31.4 BUN 6.0 L 8.0 Creatinine 1.16 H 1.16 H Glucose 94 208 H Calcium 9.6 9.0 Liver Function 02/01/25 02/02/25 Range/Units 12:04 06:02 Total Bilirubin 0.3 0.2 (0.2-1.0) mg/dL AST 14 L 13 L (15-37) U/L ALT 11 L <6 L (14-59) U/L Alkaline Phosphatase 86 75 (46-116) U/L Albumin 2.9 L 2.5 L (3.4-5.0) g/dL Urine 02/01/25 Range/Units 12:35 Urine Color Yellow (YELLOW) Urine Clarity Cloudy A (CLEAR) Urine pH 6.0 (5.0-9.0) Ur Specific [place] >=1.030 A (1.005-1.025) Urine Protein 30 A (NEG/TRACE) mg/dL Urine Glucose (UA) Negative (NEGATIVE) mg/dL Progress Note: A&P Assessment and Plan (1) COPD with acute exacerbation: Assessment and Plan: continue Doxycycline 100mg IV BID, duonebs, pulmicort, PRN albuterol and OPEP. Solumedrol 40mg IV [id number] to q8 hours for swelling (2) Acute and chronic respiratory failure with hypoxia: Assessment and Plan: due to #1, patient with tachypnea to 30 on admission, sats dropped to 85% on 3L was on 4L. now down to 3L (3) Hypomagnesuria: Assessment and Plan: Mag was 1.7, started 1gram IV mag (4) Hypokalemia: Assessment and Plan: given oral 50mEQ x 1 and 40MEQ IV for sodium of 2.8, up to 3.8 now (5) ARTURO (acute kidney injury): Assessment and Plan: cr 1.16 slightly elevated above normal 0.98. monitor (6) Acute UTI (urinary tract infection): Assessment and Plan: history of klebsiella and VRE, will get culture, treat with rocephine 1gram IV (7) Nausea & vomiting: Assessment and Plan: zofran as needed. due to being on several antibiotics over the last few months, check C diff when possible; recent ct scan was negative Qualifiers: Vomiting type: unspecified Qualified Code(s): R11.2 - Nausea with vomiting, unspecified (8) Essential (primary) hypertension: Assessment and Plan: continue metoprolol (9) CAD (coronary artery disease), [place] coronary artery: Assessment and Plan: recent heart cath at [facility] for NSTEMI, continue plavix, atrovastatin Qualifiers: Associated angina: without angina [place] vs. transplanted heart: [place] heart Qualified Code(s): I25.10 - Atherosclerotic heart disease of [place] coronary artery without angina pectoris (10) Chronic heart failure with preserved ejection fraction (HFpEF): Assessment and Plan: normal trop and proBNP, no fluids, monitor for acute signs of heart failure and with lower ext swelling today will increase lasix to 40mg BID, metoprolol (11) Back pain: Assessment and Plan: continue home medications for chronic condition Qualifiers: Back pain laterality: left Back pain location: thoracic back pain Chronicity: acute Qualified Code(s): M54.6 - Pain in thoracic spine Plan patient is DNRCCA continue heparin for DVT prophylaxis
[2025-02-02] MEDS: MAGNESIUM SULFATE/D5W 1 GM/100 ML PREMIX IV (09:18)
--- NOTE | 2025-02-02 10:05 | SWNOTE1 ---
SW called [employer] and pt's home oxygen was re-certified in December of 2023 and it is for 2 liters via nasal canula continuous with concentrator and 3 liters with portable. SW notified nurse.
--- NOTE | 2025-02-02 10:07 | SWNOTE1 ---
SW did call [facility] to see if pt was still current with them, they stated she is not.
[2025-02-02] MEDS: POLYETHYLENE GLYCOL 3350 17 GM POWDER PACKET PO (10:19)
[2025-02-02] MEDS: GUAIFENESIN 200 MG/DEXTROMETHORPHAN 20 MG 10 ML UNIT DOSE CUP PO ×2 (10:19→20:51)
[2025-02-02] MEDS: BUDESONIDE 0.5 MG/2 ML AMPULE NEB IH ×2 (11:22→22:23)
--- NOTE | 2025-02-02 11:35 | CM.NOTE ---
Rounds made with Dr. Plascencia. Dr. Plascencia reviews plan of care with Jossy. Jossy in agreement. No discharge today.
--- NOTE | 2025-02-02 11:50 | SWNOTE1 ---
SW met with pt to discuss dc needs. Pt lives at home with her daughter and grand-daughter. Pt voiced she was doing well at home, but then just felt off. She voiced her legs were swollen and hurting. Pt voiced that she is now starting to feeling better, hoping to get back home tomorrow. SW asked about adult day care? Pt voiced she is hoping to get back and they keep calling her, but has not been able to make it. Pt plans on returning home at discharge. SW asked about services? Pt stated she has therapy and nursing coming in, she thinks it is [facility]. SW to call. No further needs at this time. SW to follow as needed. SW called [facility] and pt is current with them. SW to send updates.
--- NOTE | 2025-02-02 11:54 | SWNOTE1 ---
Important Message from [employer] reviewed and discussed with patient. Pt. verbalized understanding and signed the form. Original given to patient and copy placed in patient?s chart.
--- NOTE | 2025-02-02 12:53 | SWNOTE1 ---
JULIAN sent ED note, H&P, physician notes, and PT note to Naheed ROUSE.
[2025-02-02] MEDS: CEFTRIAXONE 1,000 MG in 0.9 % SODIUM CHLORIDE 50 ML 100 MG IV (16:26)
[2025-02-02] MEDS: FUROSEMIDE 20 MG TABLET 40 MG PO (20:46)
[2025-02-03] VITALS (15 sets, daily range): BP systolic 110–129; BP diastolic 61–70; PULSE 76–91; TEMP 36.5–36.7; O2SAT 91–96
[2025-02-03] MEDS: DOXYCYCLINE HYCLATE 100 MG in 0.9 % SODIUM CHLORIDE 100 ML IV (03:42)
[2025-02-03] MEDS: DIPHENHYDRAMINE HCL 50 MG/ML VIAL 25 MG IVP (03:43)
[2025-02-03] MEDS: METHYLPREDNISOLONE SOD SUCC PF 40 MG/ML VIAL IVP ×2 (05:01→13:24)
[2025-02-03] MEDS: IPRATROPIUM/ALBUTEROL SULFATE 3 ML AMPUL.NEB IH ×2 (05:13→11:13)
[2025-02-03 06:11] LABS: Basophils Percent Auto 0.1 % (0.2-2.0); Eosinophils Percent Auto 0.2 % (0.9-7.0); Hemoglobin 9.8 g/dL (12.0-16.0); Immature Granulocytes Pct Auto 0.7 % (0.0-0.5); Lymphocytes Absolute Auto 1.4 10^3/uL (1.2-3.8); Lymphocytes Percent Auto 9.8 % (20.5-60.0); Mean Corpuscular HGB Conc 30.6 g/dL (29.9-35.2); Mean Corpuscular Hemoglobin 26.2 pg (26.7-34.0); Mean Corpuscular Volume 85.6 fL (81.0-99.0); Mean Platelet Volume 9.5 fL (9.5-13.5); Monocytes Absolute Auto 0.5 10^3/uL (0.3-0.8); Monocytes Percent Auto 3.3 % (1.7-12.0); Neutrophils Absolute Auto 11.8 10^3/uL (1.4-6.5); Neutrophils Percent Auto 85.9 % (43.0-75.0); Platelet Count 333 10^3/uL (150-450); Red Blood Count 3.74 10^6/uL (4.20-5.40); Red Cell Distribution Width 15.8 % (11.0-15.0); White Blood Count 13.8 10^3/uL (4.0-11.0)
[2025-02-03 06:27] LABS: Alanine Aminotransferase <6 U/L (14-59); Albumin Globulin Ratio 0.7; Albumin Level 2.5 g/dL (3.4-5.0); Alkaline Phosphatase 68 U/L (46-116); Anion Gap 9.9; Aspartate Amino Transferase 10 U/L (15-37); BUN Creatinine Ratio 15.3; Bilirubin Total 0.2 mg/dL (0.2-1.0); Calcium 8.5 mg/dL (8.5-10.1); Carbon Dioxide 29.4 mmol/L (21.0-32.0); Chloride 106 mmol/L (98-107); Estimated GFR (African America 57 (>=60 mL/min/1.73m^2); Estimated GFR (Non-African Ame 47 (>=60 mL/min/1.73m^2); Globulin 3.8 g/dL; Glucose 158 mg/dL (74-106); Magnesium 1.7 mg/dL (1.8-2.4); Potassium 4.3 mmol/L (3.5-5.1); Sodium 141 mmol/L (136-145); Total Protein 6.3 g/dL (6.4-8.2)
--- NOTE | 2025-02-03 08:13 | PM.DS1 ---
DS: Providers Provider Date of admission: 02/01/25 14:14 Primary care physician: AMOS GARDINER Attending physician on admission: Lilliam Plascencia Consults: 02/01/25 14:11 Occupational Therapy Eval and Treat Routine Reason for consultation: weakness Has provider been notified: No Physical Therapy Eval and Treat Routine Reason for consultation: weakness Has provider been notified: No Discharging clinician: Lilliam Plascencia DS: Diagnosis Discharge Diagnosis (1) COPD with acute exacerbation: (2) Acute and chronic respiratory failure with hypoxia: (3) Hypomagnesuria: (4) Hypokalemia: (5) ARTURO (acute kidney injury): (6) Acute UTI (urinary tract infection): (7) Nausea & vomiting: Qualifiers: Vomiting type: unspecified Qualified Code(s): R11.2 - Nausea with vomiting, unspecified (8) Essential (primary) hypertension: (9) CAD (coronary artery disease), [place] coronary artery: Qualifiers: Associated angina: without angina [place] vs. transplanted heart: [place] heart Qualified Code(s): I25.10 - Atherosclerotic heart disease of [place] coronary artery without angina pectoris (10) Chronic heart failure with preserved ejection fraction (HFpEF): (11) Back pain: Qualifiers: Back pain laterality: left Back pain location: thoracic back pain Chronicity: acute Qualified Code(s): M54.6 - Pain in thoracic spine DS: Summary Hospital Course Hospital Course: 79 yo female with hx of chronic resp failure with hypoxia on 3 L and COPD, HTN, CHF, chronic back pain, CAD, depression, osteoporosis who has recently been admitted to this facility on 12/08 and 12/14 for UTI and cellulitis. She came to the ER for nausea and vomiting with dry heaves for 2 weeks. She denies diarrhea, fever but feels like she has chills, and weakness. She usually is able to get around using a walker at home but has become weak. She also notes shortness of breath has increased when walking. In the ER she was tachypneic at 34 RR and pulse ox was 85% on 3L so she was turned up to 4L and has been in the 90's. Patient was also tachycardic at 105. ER findings: WBC's 11, hb 11.1, K 2.9, Cr 1.16, BUN 6, mag 1.2, Trop 12.4, proBNP 398. UA was also positive. Previous cultures have been positive for Klebsiella and VRE. Recent CT of the Abd/pelvis on 01/26/25 showed no acute process. Chest X ray was also negative for acute process. Patient is short of breath with conversing on exam with scattered rhonchi, wheezing on exam. Patient was treated with Doxycycline 100mg BID IV, and Rocephin 1g IV, Solumedrol 40mg q6 hours IV, duonebs. Magnesium was replaced twice IV for levels 1.6, 1.7. Her respiratory status improved and at the time of discharge she is back to her home 3L continuous. She will be treated with prednisone 40mg daily x 7 days, Doxycycline 100mg BID x 7 days, Robitussin for cough. Due to steroids her lower ext had increased edema on hospital day 2 with about 1-2+ pitting edema. I increased her lasix to 40mg BID and this seemed to improve her swelling. I will increase Lasix to 40mg BID for a total of 2 days and then she will resume lasix 20mg daily. She has close follow up with her PCP. Urine culture is pending at the time of exam, last urine culture was negative. I will wait to see what cultures grows back but she has received 3 days of IV Rocephin. Patient's vitals and labs are stable at the time of discharge. Cr 1.11, K normal. She will be discharged today with [facility] and close follow up with her PCP. Status at Discharge Functional status at discharge: uses cane/walker Overall status at discharge: patient is back to baseline Time Spent with Patient Time attestation: Total time spent providing and/or coordinating discharge services: Time spent: greater than 30 minutes Exam Narrative Exam Narrative: General: Patient is alert, and oriented to person, place and time Skin: no visible rashes, or ulcers Head: atraumatic, acephalic Eyes: PERRLA, no nystagmus present, conjunctiva clear, no scleral icterus Ears: normal gross auditory acuity Heart: Normal rate and rhythm, no murmurs/rubs/gallops Lungs: no audible wheezes, crackles Abdomen: Normal audible bowel sounds, no distension, No palpable masses, no organomegaly, no rebound/guarding/ or rigidity Musculoskeletal: no swelling bilateral lower extremities Neuro: CN II-X grossly intact Constitutional Vital Signs, click to edit/add: Last Vital Signs Temp 97.8 F 02/03/25 07:39 Pulse 82 02/03/25 07:54 Resp 16 02/03/25 07:52 BP 110/61 02/03/25 07:39 Pulse Ox 93 L 02/03/25 07:39 O2 Del Method Nasal Cannula 02/03/25 07:39 O2 Flow Rate 2 02/03/25 05:15 DS: Data Data Completed and Pending Labs on day of discharge: Labs from last 24 hours 02/03/25 05:59 WBC 13.8 H RBC 3.74 L Hgb 9.8 L Hct 32.0 L MCV 85.6 MCH 26.2 L MCHC 30.6 RDW 15.8 H Plt Count 333 MPV 9.5 Neut % (Auto) 85.9 H Lymph % (Auto) 9.8 L [place] % (Auto) 3.3 Eos % (Auto) 0.2 L Baso % (Auto) 0.1 L Neut # (Auto) 11.8 H Lymph # (Auto) 1.4 [place] # (Auto) 0.5 Eos # (Auto) 0.0 Baso # (Auto) 0.0 Abs Immat Gran (auto) 0.10 H Imm/Tot Granulo (auto) 0.7 H Sodium 141 Potassium 4.3 Chloride 106 Carbon Dioxide 29.4 Anion Gap 9.9 BUN 17.0 Creatinine 1.11 H Est GFR ( Amer) 57 L Est GFR (Non-Af Amer) 47 L BUN/Creatinine Ratio 15.3 Glucose 158 H Calcium 8.5 Magnesium 1.7 L Total Bilirubin 0.2 AST 10 L ALT <6 L Alkaline Phosphatase 68 Total Protein 6.3 L Albumin 2.5 L Globulin 3.8 Albumin/Globulin Ratio 0.7 Preliminary micro results at discharge 02/01/25 12:04 Lower Respiratory Culture - Preliminary Sputum - Expectorated Sputum 02/01/25 12:35 Urine Culture - Preliminary Urine,Clean Catch Pending - Specimen sent to [facility] Discharge Plan Discharge Disposition: Home Health Service Discharge Medications: New dextromethorphan-guaifenesin 10-100 mg/5 mL Syrup 10 ml PO Q6H PRN (Reason: Cough) 5 Days Qty: 200 0RF furosemide 20 mg Tablet 40 mg PO BID 2 Days Qty: 8 0RF doxycycline monohydrate 100 mg tablet 100 mg PO BID 7 Days Qty: 14 0RF prednisone 20 mg tablet 20 mg PO BID 7 Days Qty: 14 0RF Continued albuterol sulfate 90 mcg/actuation HFA aerosol inhaler 2 puff INHALATION Q4H PRN (Reason: shortness of breath or wheezing) cholecalciferol (vitamin D3) 50 mcg (2,000 unit) tablet 50 mcg PO DAILY melatonin 5 mg tablet 5 mg PO QPM polyethylene glycol 3350 [Miralax] 17 gram/dose powder 17 g PO DAILY PRN (Reason: constipation) Qty: 510 0RF ondansetron 4 mg tablet,disintegrating 4 mg PO Q6H PRN (Reason: nausea and vomiting) Qty: 20 0RF fluticasone propion-salmeterol 250-50 mcg/dose blister with device 1 inh INHALATION BID hydrocodone-acetaminophen 5-325 mg tablet 1 tab PO Q6H PRN (Reason: pain) pantoprazole 40 mg tablet,delayed release (DR/EC) 40 mg PO DAILY metoprolol succinate 25 mg tablet extended release 24 hr 25 mg PO DAILY paroxetine HCl 40 mg tablet 40 mg PO DAILY dapagliflozin propanediol [Farxiga] 10 mg tablet 10 mg PO DAILY Incruse Ellipta 62.5 mcg/actuation blister with device 1 inh INHALATION DAILY Entresto 24-26 mg tablet 1 tab PO BID alendronate 70 mg tablet 70 mg PO WE@0730 atorvastatin 40 mg tablet 40 mg PO DAILY bupropion HCl 300 mg tablet extended release 24 hr 300 mg PO DAILY clopidogrel 75 mg tablet 75 mg PO DAILY Held furosemide 20 mg tablet 20 mg PO DAILY Hold Instructions: Resume on 02/06/25. Activity: ambulate only with your walker and wear oxygen at all times Activity Detail: continuous at 3L via [place] Diet: advance to your usual diet Print Language: Trin[place] Forms: Portal Instructions Follow Up Appointments: February 09 @ 2:30pm with Dr. Gardiner [phone] Discharge location: Home with [facility]
[2025-02-03] MEDS: PANTOPRAZOLE SODIUM 40 MG TABLET.DR PO (08:24)
[2025-02-03] MEDS: ATORVASTATIN CALCIUM 40 MG TABLET PO (08:24)
[2025-02-03] MEDS: HYDROCODONE/ACET 5-325 MG TABLET 1 TAB PO (08:24)
[2025-02-03] MEDS: SACUBITRIL/VALSARTAN 24 MG-26 MG TABLET 1 TAB PO (08:25)
[2025-02-03] MEDS: FUROSEMIDE 20 MG TABLET 40 MG PO (08:25)
[2025-02-03] MEDS: BUPROPION HCL 150 MG XL TABLET 24H 300 MG PO (08:25)
[2025-02-03] MEDS: CLOPIDOGREL BISULFATE 75 MG TABLET PO (08:25)
[2025-02-03] MEDS: METOPROLOL SUCCINATE 25 MG TAB.ER.24H PO (08:25)
[2025-02-03] MEDS: PAROXETINE HCL 20 MG TABLET 40 MG PO (08:26)
[2025-02-03] MEDS: HEPARIN SODIUM (PORCINE) 5,000 UNIT/ML VIAL 5000 UNIT SUBQ (08:26)
[2025-02-03] MEDS: MAGNESIUM SULFATE/D5W 1 GM/100 ML PREMIX IV (08:45)
--- NOTE | 2025-02-03 10:30 | CM.NOTE ---
Rounds made with Dr. Plascencia, pt will discharge to home today with services.
--- NOTE | 2025-02-03 10:41 | PT.DAILY ---
Physical Therapy Daily Note PT Daily Note/Assess Start: 02/03/25 10:34 Freq: Status: Active Protocol: Document 02/03/25 10:20 RACHELLE (Rec: 02/03/25 10:41 RACHELLE [id number]) Physical Therapy Daily Note/Assessment Time In/Time Out Time In 10:21 Time Out 10:33 Subjective Subjective Patient reports feeling a lot better today. Has some soreness in B LE but agreeable to seated exercises and short walk. Therapeutic Exercise Time Therapeutic Exercise 4 Minutes (minutes) Therapeutic Exercise 0 Units Therapeutic Exercise Treatment Therapeutic Exercise Seated Exercises: Treatment Marches x 10 LAQ x 10 HR/TR x 10 Hip abd x 10 Add squeezes x 10 Therapeutic Activity Time Therapeutic Activity 8 Minutes (minutes) Therapeutic Activity 1 Units Therapeutic Activity Treatment Chair Transfer Standby Assistance Ability Therapeutic Activity Patient ambulates 40 feet with RW CGA and assistance Comments for O2 line. Total Physical Therapy Time Total Therapy 12 Minutes Total Physical 1 Therapy Units Summary Daily Note Summary Patient demonstrates increased distance with ambulation to 40 feet with RW CGA and assistance for O2 line. Patient experiencing SOB after ambulation with cues given on breathing techniques, quick recovery after short rest break. Patient in chair with legs elevated, call light in reach, and all needs met post treatment.
[2025-02-03] MEDS: BUDESONIDE 0.5 MG/2 ML AMPULE NEB IH (11:14)
--- NOTE | 2025-02-03 13:23 | SWNOTE1 ---
Pt is discharged today. JULIAN faxed CRF, discharge summary, and dc med rec to [facility].
--- NOTE | 2025-02-04 16:22 | CM.DCFOLLOWU ---
02/04/25, 1st attempt, no answer
--- NOTE | 2025-02-05 15:47 | CM.NOTE ---
Fredy durbin sent to Dr. Plascencia final urine culture and sputum culture.
--- NOTE | 2025-02-08 13:42 | CM.DCFOLLOWU ---
02/08-Fast busy- No answer
== END 2025-02-03 16:12 | disposition home health service (06) | DRG 190 ==
LOC: ER 13:10 → MS 14:17
PROVIDERS: Admitting Provider Family Medicine; Emergency Provider Emergency Medicine; PCP Internal Medicine; Visit Provider Family Medicine
DX: J44.1 Chronic obstructive pulmonary disease with (acute) exacerbation (principal); J96.21 Acute and chronic respiratory failure with hypoxia; N17.9 Acute kidney failure, unspecified; N39.0 Urinary tract infection, site not specified; I50.32 Chronic diastolic (congestive) heart failure; E83.42 Hypomagnesemia; E87.6 Hypokalemia; I25.10 Atherosclerotic heart disease of native coronary artery without angina pectoris; I11.0 Hypertensive heart disease with heart failure; Z66 Do not resuscitate; M54.6 Pain in thoracic spine; G89.29 Other chronic pain; F32.A Depression, unspecified; R11.2 Nausea with vomiting, unspecified; M81.0 Age-related osteoporosis without current pathological fracture; I25.2 Old myocardial infarction; Z79.899 Other long term (current) drug therapy; Z99.81 Dependence on supplemental oxygen; Z79.51 Long term (current) use of inhaled steroids; Z88.6 Allergy status to analgesic agent; Z79.83 Long term (current) use of bisphosphonates; Z79.02 Long term (current) use of antithrombotics/antiplatelets; Z87.891 Personal history of nicotine dependence
CPT/HCPCS: 36415; 71045; 80053; 81001; 82800; 83605; 83735; 83880; 84132; 84484; 85025; 85610; 87040; 87070; 87077; 87086; 87088; 87186; 87205; 87493; 93005; 94640; 94667; 94668; 94761; 96365; 96366; 96367; 96375; 97161; 97165; 97530; 99285; J0696; J1200; J1644; J2405; J2919; J3475; J3480; Q0162

== ENCOUNTER 2025-09-13 13:55 | Outpatient (REF) | payer MEDICARE, MEDICAID, SELFPAY ==
--- OUTSIDE RECORDS SUMMARY | 2025-09-13 14:08 | XMS_ITS | CCD ---
Author Organization [facility] Care Team Providers Care Diesel Engine Specialist Name Role Phone Mely Camarillo Unavailable Unavailable CRYS BARBOZA Consulting Unavailable VERENICE CHILEL Admitting Unavailable BAILEY GONZALEZ Attending Unavailable GENERIC, PHYSICIAN Primary Care Unavailable JIMMY GARCIA Referring Unavailable DANGELO LOZA Consulting U navailable Generic, Physician Primary Care Provider Unavail able Jorge A Jackson Unavailable Tanya Guerrero Unavailable DO Gustavo Salas Primary Care Provider DO Hilario Yeung Emergency Provider Unavai DO Gustavo Hernandez Primary Care Provider DO Richard Pearson Emergency Provider ETHAN Morrissey Emergency Provider MD Jolanta Mckenzie Admit Provider MD Jolanta Mckenzie Attending Provider [phone] MD Jesus Alberto Aquino Attending Provider Dr. Charlie Mondragon II Attending Unavailable LAKSHMIPATHY ., NARENDRANATH Admitting Sahra vailable LAKANGÉLICA ., NARENDRANATH Attending Sahra dottyble DR SVITLANA HAMMOND Primary Care Unavailable DO Gustavo Salas Primary Care Provider Karen [facility] Kadie Beckford Emergency Provider [phone] DO Smooth Dominguez Emergency Provider MD Jolanta Mckenzie Admit Provider MD Jolanta Mckenzie Attending Provider [phone] DO Maury Morrissey Emergency Provider [phone] MD Jesus Alberto Aquino Admit Provider MD Jesus Alberto Aquino Attending Provider [phone] Gustavo Salas DO A Primary Care Provider [phone] Aubrey METZ, Leah Unavailable Gustavo Salas DO Primary Care Provider GUSTAVO SALAS Primary Care Physician Unavail able DO Gustavo Salas Primary Care Provider MD Jenna Engle Attending Provider [phone] Karen [facility] Kadie Beckford Emergency Provider MD Lucho Grullon Admit Provider MD Lucho Grullon Attending Provider [phone] JENNA ENGLE Attending Unavailable MARITZA, GUSTAVO A [...] Unavailable VONTHRON, MELY A Primary Care Unavailable NOE OSEI Attending Unavailable NOE OSEI Referring Unavailable VONTHRON, MELY A Primary Care Unavailable CASE, NOE Durham Attending Unavailable CASE, NOE Durham Referring Unavailable VONTHRON, MELY A Primary Care Unavailable MARKELL LIN Referring Unavailable OOSTRACECELIA E Attending Unavailable OOSTRA, CECELIA E Referring Unavailable VONTHRON, MELY A Primary Care Unavailable OOSTRA, CECELIA E Attending Unavailable OOSTRA, CECELIA E Referring Unavailable VONTHRON, MELY A Primary Care Unavailable ASHLEY MOONEY K Attending Unavailable ASHLEY MOONEY K Referring Unavailable VONTHRON, MELY A Primary Care Unavailable JENNIFER MENA Attending Unavailable JENNIFER MENA Admitting Unavailable DAVID HOGAN Referring Unavailable VONTHRON, MELY A Primary Care [...] able VONTHRON, MELY A Primary Care Unavailable NANCY BERRY Referring Unavailable VONTHRON, MELY A Primary Care [...] Unavailable MARITZA, GUSTAVO A Primary Care Unavailable JAEN, OVIDIO J Referring Unavailable MARITZA, GUSTAVO A Primary Care Unavailable GINNY BELCHER Attending Unavailable MARITZA, GUSTAVO A Referring Unavailable MARITZA GUSTAVO A Primary Care Unavailable TODD POSEY JR Referring Unavailable GUSTAVO SALAS Primary Care Unavailable TODD POSEY JR Referring Unavailable GUSTAVO SALAS A Primary Care Unavailable VALONE JR, TODD L Referring Unavailable MARITZA, GUSTAVO A Primary Care Unavailable VALGEORGE TODD CHAVEZ L Referring Unavailable MARITZA, GUSTAVO A Primary Care Unavailable MARITZA, GUSTAVO A Referring Unavailable MARITZA, GUSTAVO A Primary Care Unavailable HUFDHI, RAIED Referring Unavailable MARITZA, GUSTAVO A Primary Care Unavailable RESER, KEIKO VELASQUEZLE Referring Unavailabl e MARITZA, GUSTAVO A Primary Care Unavailable RESER, KEIKO SCARLET Referring Unavailabl e MARITZA, GUSTAVO A Primary Care Unavailable HUFDHI, RAIED Referring Unavailable MARITZA, GUSTAVO A Primary Care Unavailable HUFDHI, RAIED Referring Unavailable MARITZA, GUSTAVO A Primary Care Unavailable HUFDHI, RAIED Referring Unavailable MARITZA, GUSTAVO A Primary Care Unavailable JAMAL, NANCY Referring Unavailable MARITZA, GUSTAVO A Primary Care Unavailable Gustavo Salas DO Unavailable [phone] JENNA ENGLE Referring Unavailable GUSTAVO SALAS Primary Care Unavailable Gustavo Salas DO Primary Care Provider Mely Bob Primary Care [facility] Gustavo Hogan DO Attending Provider Unavailab GUSTAVO Moctezuma Attending Unavailable GUSTAVO SALAS Referring Unavailable KALYAN BARBOZA Attending Unavailable KALYAN BARBOZA Attending Unavailable GUSTAVO SALAS Attending Unavailable GUSTAVO SALAS A Referring Unavailable GUSTAVO SALAS Attending Unavailable GUSTAVO SALAS Referring Unavailable KALYAN BARBOZA Attending Unavailable GUSTAVO SALAS Referring Unavailable LILLIAM CHEEK Attending Unavailable GUSTAVO SALAS A Referring Unavailable Gustavo Hogan DO Attending Provider [phone] Pay Gustavo LEYVA Attending Provider [phone] Gustavo Hogan Admitting Unavailable Gustavo Hogan Attending Unavailable Gustavo Candelario Admitting Unavailable Gustavo Candelario Attending Unavailable Michoacano Mckenzie Attending Unavailab Gustavo Moctezuma Primary Care Unavailable WasLucho dawkins Admitting Unavailable ELTAHAWY, EHAB Attending Unavailable JORGE LUIS, NEGRITA Referring Unavailable TRICIA, ED Referring Unavailable TRICIA, ED Referring Unavailable SALTY, BING Referring Unavailable HORANI, SHAUNA Admitting Unavailable DAVID, JOCELIN Attending Unavailable ROSA LAGOS Referring Unavailable SALLY, HANI Referring Unavailable SALLY, HANI Referring Unavailable SALLY, HANI Referring Unavailable BRADEN MACIAS Attending Unavailable BRADEN MACIAS Attending Unavailable Leah Burgos RN Unavailable [phone] Gustavo Salas DO Unavailable Allergies Allergy ClassificationReported Allergen(s)Allergy TypeDate of OnsetReaction(s) Facility (17 sources)Acetaminophen / oxyCODONE; Translations: [acetaminophen-oxycodone] Drug Ihdmcgs03-29-0761lnvvelexUcisyejnu [facility] (20 sources)Aspirin; Translations: [aspirin]Drug Adhwlge92-50-0087Jlfuz, Nausea/vomiting, Nausea And Vomiting, Other (See Comments)[facility] (20 sources)Acetaminophen / oxyCODONE; Translations: [OXYCODONE-ACETAMINOPHEN] Drug Qcffjsr00-99-0938EL [facility] (4 sources)Ibuprofen; Translations: [IBUPROFEN]Drug Hzpriob32-82-6750 [facility] ([facility])Acetaminophen; Translations: [acetaminophen]Drug Hznkybr55-43-1511YY intoleranceBrecksville [facility] (20 sources)oxyCODONE; Translations: [OXYCODONE]Drug Scrcsnf95-34-9924FT intolerance, VomitingBrec[facility]ville [facility] (1 source)Acetaminophen / oxyCODONE; Translations: [acetaminophen-oxycodone][facility]ergyP[facility] Medications Current Medications MedicationDrug Class(es)DatesSig (Normalized)Sig (Original)acetaminophen 500 mg oral tablet (20 sources)Start: 19-81-1625urvh 2 tablets by mouth every four hours as needed for pain and feveracetaminophen (TYLENOL EXTRA STRENGTH) 500 mg tablet Take 2 tablets (1,000 mg total) by mouth every4 (four) hours as needed for pain or fever. 09/20/2023 ActiveStart: 09-05-2020 End: 94-66-7890zwcb 2 tablets by mouth every four hours as needed for pain Acetaminophen 325 mg Tablet Active 650 MG PO Q4H as needed for Pain Scale 1 - 5 0 September 21, 2020 1:00amStart: 09-05-2020 End: 96-46-6117uezf 650 mg by mouth every four hoursAcetaminophen Active 650 MG PO Q4H 0 September 21, 2020 1:00amStart: 28-08-7201323 mg, Oral, EVERY 4 HOURS PRN, Pain Mild (1-3), Pain Mild (1-3) or Fever greater than 100.5 F (38C), Starting 08/02/19 at 0003 Maximum dose of acetaminophen is 4000 mg from all sources in 24 hours. End: 06-25-3607vbrv 1 tablet by mouth every eight hours as neededacetaminophen (Tylenol) 500 MG tablet Take 1 tablet by mouth every 8 (eight) hours if needed. 01/20/2025 Discontinued (Ineffective)take 2 capsules by mouth every eight hours Acetaminophen 500 MG 2 capsules as needed Orally every 8 hrs PRN Active acetaminophen 325 mg / HYDROcodone bitartrate 5 mg oral tablet (20 sources)Opioid AgonistStart: 01-04-2025 End: 28-59-2140aydj 1 tablet by mouth every six hours as needed for pain and pain and painHYDROcodone-acetaminophen ([place]) 5-325 MG tablet Indications: Pain Take 1 tablet by mouth every 6 (six) hours if needed for severe pain 90 tablet 01/21/2025 02/20/2025 ActiveStart: 10-02-2024 End: 60-02-1193rety 1 tablet by mouth every six hours as needed for pain HYDROcodone-acetaminophen ([place]) 5-325 MG tablet TAKE 1 TABLET BY MOUTH EVERY 6 HOURS NEEDED FOR PAIN FOR 3 DAYS 10/02/2024 10/06/2024 Discontinued (Ineffective)Start: 01-15-2020 End: 20-94-6091wmmw 1 tablet by mouth every four to six hours as needed Hydrocodone-Acetaminophen ([place]) 5-325 mg tablet Discontinued 1 TAB PO EVERY 4- 6 HOURS as needed for arm fracture 10 January 15, 2020 February 23, 2020 2:44pm Start: 52-05-2640MCGTCsixdby-acetaminophen ([place]) 5-325 MG per tablet 1 tablet Start: 01-02-2019 End: 63-04-1068izbp 1 tablet by mouth every six hours as needed for pain Hydrocodone-Acetaminophen ([place]) 5-325 mg tablet Discontinued 1 TAB PO Q6H as needed for pain 20 5Decch 2018January 12, 2019 6:44amStart: 06-22-2018 End: 32-10-4246skfa 1 tablet by mouth every four to six hours as needed for pain Hydrocodone-Acetaminophen ([place]) 5-325 mg tablet Discontinued 1 TAB PO EVERY 4- 6 HOURS as needed for pain June 22, 2018 August 01, 2019 6:32pm End: 17-10-4536ssiv 1 tablet by mouth every six hours as neededHYDROcodone- acetaminophen (VICODIN) 5-500 MG per tablet Take 1 tablet by mouth every 6 hours as needed. 0 08/02/2019 Discontinued (LIST CLEANUP)[id number] 200 actuat albuterol 0.09 mg/actuat metered dose inhaler (20 sources)beta2-Adrenergic AgonistStart: 04-03-2119ioyy 2 puff(s) by inhalation every four hours for wheezingalbuterol HFA (Ventolin HFA) 90 mcg/act inhaler Indications: Chronic obstructive pulmonary disease,unspecified COPD type (CMS/HCC) Inhale 2 puffs every 4 (four) hours if needed for wheezing or shortn ess of breath 8 g 5 05/22/2024 ActiveStart: 11-37-6346Cbrfgwvta Sulfate 90 mcg/actuation HFA aerosol inhaler Active 2 INH INHALATION Q4H as needed for bro nchospasm February 15, 2024 12:00am administer with spacerStart: 50-71-0174pftk 2 puff(s) by inhalation every four hours as neededalbuterol (PROVENTIL HFA;VENTOLIN HFA) 90 mcg/actuation inhaler Inhale 2 puffs every 4 (four) hoursas needed. 12/30/2023 ActiveStart: 04-01-2023 End: 71-58-1981diux 2 puff(s) by inhalation every four hours for wheezing albuterol HFA 90 mcg/act inhaler Indications: Panlobular emphysema (CMS/HCC) Inhale 2 puffs every 4(four) hours if needed for wheezing. 1 g 5 04/01/2023 12/09/2023 Discontinued (Other)Start: 05-31-2022 End: 48-23-8204Zlkmuztfw Sulfate 90 mcg/actuation HFA aerosol inhaler Discontinued 2 INH INHALATION Q6H as needed for bronchospasm 8 7 May 31, 2022 12:00am February 15, 2024 5:26pm administer with spacerStart: 36-43-1669ugfv 1 puff(s) by inhalation every four hours as neededAlbuterol Sulfate HFA 108 (90 Base) MCG/ACT 1 puff as needed Inhalation every 4 hrs for 30 days PRN2May, ActiveStart: 23-71-6084oaxy 1 puff(s) by inhalation every four hours as neededAlbuterol Sulfate HFA 108 (90 Base) MCG/ACT 1 puff as needed Inhalation every 4 hrs for 30 days PRN2May, ActiveStart: 08-31-2020 End: 08-68-2472hkfd 1 puff(s) by inhalation every six hours as neededAlbuterol Sulfate (Ventolin Hfa) 90 mcg/actuation HFA aerosol inhaler Discontinued 1 PUFF INHALATION Every 6 hours as needed for Shortness Of Breath August 31, 2020 1:00am September 21, 2020 1:41pmStart: 11-15-2017 End: 65-69-6418ebqa 2.5 mg by inhalation every six hours as needed for wheezing Albuterol Sulfate 2.5 mg /3 mL (0.083 %) solution for nebulization Discontinued 2.5 MG INHALATION Q6H as needed for shortness of breath or wheezing November 15, 2017 1:00am August 01, 2019 6:34pmAlbuterol Sulfate (2.5 MG/3ML) 0.083% 1 unit dose Inhalation four times a day DX J44.9 COPD PRN Not-Takingalbuterol 0.833 mg/ml / ipratropium bromide 0.167 mg/ml inhalation solution (20 sources)Anticholinergic, beta2-Adrenergic AgonistStart: 01-21-2025 ipratropium-albuterol (Duo-Neb) 0.5-2.5 mg/3 mL nebulizer solution Indications: Pulmonary emphysema, unspecified emphysema type (CMS/HCC) , Chronic obstructive pulmonary disease, unspecified COPD type (CMS/HCC) Take 3 mL by nebulization every 12 (twelve) hours 180 mL 3 01/21/2025 ActiveStart: 24-02-2750bkytjfttx- ipratropium Inh Sarah Beth 3 mL UD Refill(s) 0 Start Date: 01/30/24 Status: OrderedStart: 05-28-5185xofn 3 mL by inhalation in the morningipratropium-albuteroL (DUONEB) 0.5 mg-3 mg(2.5 mg base)/3 mL nebulizer Inhale 3 mL in the morning and 3 mL before bedtime. 01/30/2024 ActiveStart: 35-15-1995plbewsrfj-ipratropium Inh Sarah Beth 3 mL UD Refill(s) 0, 180 EA, 0 Refill(s), INHALE CONTENTS OF 1 VIAL (3 ML) VIA NEBULIZER EVERY 12 HOURS Start Date: 01/30/24 Status: OrderedStart: 07-22-2023 ipratropium-albuterol (Duo-Neb) 0.5-2.5 mg/3 mL nebulizer solution Indications: Pulmonary emphysema, unspecified emphysema type (CMS/HCC) , Chronic obstructive pulmonary disease, unspecified COPD type (CMS/HCC) Take 3 mL by nebulization every 12 (twelve) hours. 180 mL 3 07/22/2023 ActiveStart: 09-05-2020 End: 97-27-4978nyha 1 mL by inhalation twice dailyIpratropium-Albuterol 0.5 mg-3 mg(2.5 mg base)/3 mL Solution For Nebulization Active 3 ML INHALATION Twice daily 250 September 21, 2020 1:00amipratropium-albuteroL (Duo-Neb) 0.5-2.5 mg/3 mL nebulizer solution Take 3 mL by nebulization every 6 hours. Active alendronic acid 70 mg oral tablet (20 sources)BisphosphonateStart: 05-30-2023 End: 54-62-3542rsqe 1 tablet by mouth in the morningalendronate (Fosamax) 70 MG tablet Indications: Osteopenia of both hips Take 1 tablet (70 mg) by mouth every 7 (seven) days Take in the morning with a full glass of water, on an empty stomach, and donot take anything else by mouth or lie down for the next 30 min. 4 tablet 11 12/30/2023 ActiveStart: 09-21-2020 End: 23-83-6243gjid 1 tablet by mouth every weekAlendronate 70 mg tablet Active 70 MG PO every week September 21, 2020 1:38pm must sit up for 30min post adminStart: 08-31-2020 End: 70-83-5691Jwwfjzhzipi 70 mg tablet Discontinued MG PO August 31, 2020 1:00am September 21, 2020 1:38pm OnHold: Resume on 09/12/20. must sit up for 30min post adminStart: 08-31-2020 End: 39-71-1273Mdfrmcfvxgj Discontinued MG PO August 31, 2020 1:00am September 21, 2020 1:38pm must sit up kvs81avq post adminStart: 08-01-2019 End: 03-73-3288vuwf 1 tablet by mouth every weekAlendronate 70 mg tablet Discontinued 70 MG PO every week August 01, 2019 12:00am February 23, 2020 4:42pmatorvastatin 40 mg oral tablet (20 sources)HMG-CoA Reductase InhibitorStart: 37-49-1820dhwx 1 tablet by mouth once dailyatorvastatin (Lipitor) 40 MG tablet Indications: Pure hypercholesterolemia Take 1 tablet (40 mg) bymouth Daily 90 tablet 3 12/30/2023 ActiveStart: 04-28-2020 End: 23-02-2263arhz 1 tablet by mouth once dailyatorvastatin (Lipitor) 40 MG tablet Indications: Pure hypercholesterolemia (CMS/HCC) Take 1 tablet (40 mg) by mouth Daily 90 tablet 3 12/30/2023 ActiveStart: 01-12-2019 End: 02-59-1192jbes 1 tablet by mouth once dailyAtorvastatin (Lipitor) 20 mg Tablet Discontinued 20 MG PO Daily January 12, 2019 12:00am April 28, 2020 11:19amazithromycin 250 mg oral tablet (15 sources)Macrolide AntimicrobialStart: 06-73-0609pklo 1 tablet by mouth once dailyAzithromycin 250 mg tablet Active 250 MG PO Daily 3 February 17, 2024 12:00amStart: 11-15-2017 End: 32-36-7697sdfy 2 tablets by mouth once daily, then take 1 tablet by mouth once dailyAzithromycin (Zithromax) 250 mg tablet Discontinued 250 MG PO Daily November 15, 2017 1:00am June 22, 2018 9:09pm ZPAK-2 tabs day 1, the 1 tab daily for 4 daysbenzonatate 100 mg oral capsule (8 sources)Non-narcotic AntitussiveStart: 74-79-7531qlip 1 capsule by mouth in the morningbenzonatate (Tessalon) 100 MG capsule Take 100 mg by mouth in the morning and 100 mg before bedtime. 09/23/2024 Yexnez55 hr buPROPion hydrochloride 300 mg extended release oral tablet (20 sources)AminoketoneStart: 76-18-0539tlff 1 tablet by mouth every twenty-four hours in the morningbuPROPion XL (Wellbutrin XL) 300 MG 24 hr tablet Indications: Recurrent major depressive disorder, in partial remission (HCC) (CMS/HCC) Take 1 tablet (300 mg) by mouth in the morning. Do not crush, chew, or split.. 90 tablet 3 09/03/2024 ActiveStart: 87-15-0293qpmr 1 tablet by mouth every twenty-four hours in the morningbuPROPion XL (Wellbutrin XL) 300 MG 24 hr tablet Indications: Recurrent major depressive disorder, in partial remission (HCC) (CMS/HCC) TAKE 1 TABLET BY MOUTH IN THE AM 90 tablet 3 02/10/2024 Active Start: 01-01-2019 End: 06-85-7908jkyz 1 tablet by mouth once daily in the morningBupropion Hcl 300 mg Tablet Extended Release 24 Hr Active 300 MG PO Every morning September 21, 2020 1:00am End: 77-18-3715ilnu 1 tablet by mouth twice dailybuPROPion (WELLBUTRIN SR) 100 MG SR tablet Take 100 mg by mouth 2 times daily. 0 08/02/2019 Discontinued (LIST CLEANUP)cefdinir 300 mg oral capsule (13 sources)Cephalosporin AntibacterialStart: 26-30-2559seem 1 capsule by mouth twice dailyCefdinir 300 mg capsule Active 300 MG PO Twice daily 03 30February 17, 2024 12:00amStart: 53-72-6549klgp 300 mg by mouth twice dailyCefdinir Active 300 MG PO Twice daily 03 30August 20, 2023 12:00amcephalexin 500 mg oral capsule (20 sources)Cephalosporin AntibacterialStart: 01-30-2024 End: 66-81-6191alhw 1 capsule by mouth every twelve hourscephalexin 500 mg Cap 500 mg = 1 cap(s), Oral, q12hr, X 7 day(s), # 14 cap(s), Refills(s) 0, Pharmacy: [id number], 170, cm, 01/30/24 13:39:00 EDT, Height/Length Dosing, 80.2, kg, 01/30/24 13:39:00 EDT, Weight Dosing Start Date: 01/30/24 Stop Date: 02/06/24 Status: OrderedStart: 07-14-2023 End: 45-65-7709tiat 1 tablet by mouth twice dailyCephalexin 500 mg tablet Discontinued 500 MG PO Twice daily 6 July 14, 2023 12:00am August 17, 2023 6:48pmStart: 04-28-2020 End: 31-77-5705ifho 1 capsule by mouth twice dailyCephalexin 500 mg capsule Discontinued 500 MG PO Twice daily 10 April 28, 2020 12:00am August 31, 2020 3:52pmStart: 02-25-2020 End: 30-50-6293safd 1 capsule by mouth twice dailyCephalexin (Keflex) 500 mg capsule Discontinued 500 MG PO Twice daily 10 February 25, 2020 12:00amJun2019 5:24pmStart: 01-15-2020 End: 76-75-8187fesv 1 capsule by mouth every twelve hoursCephalexin (Keflex) 500 mg capsule Discontinued 500 MG PO Q12H 14 January 15, 2020 12:00am January 272019 2:45pmcholecalciferol 0.05 mg oral capsule (20 sources)Vitamin DStart: 75-94-0696fvgi 1 capsule by mouth once daily cholecalciferol (Vitamin D-3) 50 MCG (1999 UT) capsule Indications: Vitamin D deficiency Take 1 capsule (50 mcg) by mouth Daily 90 capsule 3 09/03/2024 Active Start: 38-86-3765xxre 1 capsule by mouth once in the morningcholecalciferol (Vitamin D-3) 50 MCG (1999 UT) capsule Indications: Vitamin D deficiency Take 1 capsule (50 mcg) by mouth in the morning. 90 capsule 3 12/17/2023 ActiveStart: 87-40-0898sjyw 1 tablet by mouth once dailyCholecalciferol (Vitamin D3) 25 mcg (1,000 unit) Tablet Active 2000 UNIT PO Daily September 21, 2020 1:00am Start: 08-31-2020 End: 59-78-8278ebre 1 capsule by mouth once dailyCholecalciferol (Vitamin D3) 50 mcg (2,000 unit) capsule Discontinued 50 MCG PO Daily August 1:00am September 21, 2020 1:41pmtake 1 capsule by mouth in the morningcholecalciferol, vitamin D3, 2,000 units capsule Take 1 capsule (2,000 Units total) by mouth in themorning. Activetake 1 tablet by mouth twice dailycholecalciferol, vitamin D3, 75 mcg (3,000 unit) tablet Take by mouth. 1 TAB BID Activeclopidogrel 75 mg oral tablet (20 sources)P2Y12 Platelet InhibitorStart: 77-96-1394sqwt 1 tablet by mouth once dailyclopidogrel (Plavix) 75 MG tablet Indications: 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 (CMS/HCC) Take 1 tablet (75 mg) by mouth 1 (one) time each day at the same time 90 tablet 3 09/03/2024 Activecyclobenzaprine hydrochloride 5 mg oral tablet (9 sources)Muscle RelaxantStart: 38-52-7192rytt 1 tablet by mouth twice daily as needed for muscle spasmscyclobenzaprine (Flexeril) 5 MG tablet Indications: Dorsalgia, unspecified Take 1 tablet (5 mg) by mouth 2 (two) times a day as needed for muscle spasms 10 tablet 10/01/2024 Activedapagliflozin 10 mg oral tablet (5 sources)Sodium-Glucose Cotransporter 2 Inhibitortake 10 mg by mouth once dailydapagliflozin (Farxiga) 10 MG Take 10 mg by mouth Daily ActiveDAPTOmycin in sodium chloride 0.9 % 50 mL IVPB (4 sources)Start: 10-23-2023 End: 46-19-4018HVADYzrtwp in sodium chloride 0.9 % 50 mL IVPB 650 mg daily pharmacy to dose. 50 mL 26 10/23/2023 11/17/2023 Active0.4 ml enoxaparin sodium 100 mg/ml prefilled syringe (1 source)Low Molecular Weight HeparinStart: 36-52-9695xjkqnwpmgk (LOVENOX) injection 40 mgfamotidine 40 mg oral tablet (20 sources)Histamine-2 Receptor AntagonistStart: 43-19-1946Qmayarghog 40 mg tablet Active 20 MG PO Daily February 15, 2024 12:00amStart: 87-02-7730denv 20 mg by mouth once dailyFamotidine Active 20 MG PO Daily February 15, 2024 12:00am Start: 30-39-9789dibrjseclb 40 mg Tab 45 EA, 0 Refill(s), TAKE 1/2 TABLET BY MOUTH EVERY DAY, Refills(s) 0 Start Date: 01/30/24 Status: OrderedStart: 60-31-2694tsas 0.5 tablet by mouth once dailyfamotidine (Pepcid) 40 MG tablet Indications: Gastroesophageal reflux disease without esophagitis Take 0.5 tablets (20 mg) by mouth Daily 90 tablet 2 12/30/2023 Activetake 1 tablet by mouth once dailyfamotidine (Pepcid) 20 mg tablet Take 1 tablet (20 mg) by mouth once daily. Activefluticasone propionate 0.05 mg/actuat metered dose nasal spray (5 sources)CorticosteroidStart: 31-07-5967zarn 1 spray(s) nasal route once daily as neededFluticasone Propionate 50 MCG/ACT 1 spray in each nostril Nasally Once a day PRN Nov, Bfuumk024 actuat fluticasone propionate 0.23 mg/actuat / salmeterol 0.021 mg/actuat metered dose inhaler (5 sources)Corticosteroid, beta2-Adrenergic Agonisttake 2 puff(s) by inhalation in the morningfluticasone-salmeterol (Advair) 230-21 MCG/ACT inhaler Inhale 2 puffs in the morning and 2 puffs before bedtime. Rinse mouth with water after use to reduce aftertaste and incidence of candidiasis. Donot swallow.. Snlmtl79 actuat fluticasone furoate 0.1 mg/actuat / umeclidinium 0.0625 mg/actuat / vilanterol 0.025 mg/actuat dry powder inhaler (20 sources)Anticholinergic, Corticosteroid, beta2-Adrenergic AgonistStart: 98-84-6873mzdk 1 puff(s) by inhalation in the morning Rxsveeyrsxo-Icyulrsby-Wyrfac (Trelegy Ellipta) 100-62.5-25 MCG/ACT aerosol powder Indications: Chronic obstructive pulmonary disease, unspecified COPD type (CMS/HCC) Inhale 1 puff in the morning. 1 each 3 05/22/2024 ActiveStart: 73-89-1973Ndzneptcgel-Umeclidin-Vilanter (Trelegy Ellipta) 100-62.5-25 mcg Blister With Device Active 1 INH INHALATION Daily July 09, 2023 11:00pm Start: 31-18-1551Bhqdqgpwosk-Umeclidin-Vilanter (Trelegy Ellipta) 100-62.5-25 mcg Blister With Device Active 1 INH INHALATION Daily July 10, 2023 12:00amStart: 43-69-2007uhzr 1 puff(s) by inhalation once daily arjedjbljhj-aqjjkldrn-lyzwtxww (TRELEGY ELLIPTA) 100-62.5-25 mcg blister with device Inhale 1 puff once daily. 0 04/01/2023 ActiveStart: 04-01-2023 End: 71-94-7361twql 1 puff(s) by inhalation in the morning Ixlgnvjrmxf-Tylxyngnr-Slaopp (Trelegy Ellipta) 100-62.5-25 MCG/ACT aerosol powder Indications: Panlobular emphysema (CMS/HCC) Inhale 1 puff in the morning. 1 each 11 04/01/2023 12/09/2023 Discontinued (Other)Start: 02-23-2020 End: 13-19-1977Scghexllevz-Umeclidin-Vilanter (Trelegy Ellipta) 100-62.5-25 mcg blister with device Discontinued 1PUFF INHALATION As Directed February 22, 2020 11:00pm April 25, 2020 5:58pmStart: 02-23-2020 End: 16-59-2845Cxdaptwsmbj-Umeclidin-Vilanter (Trelegy Ellipta) 100-62.5-25 mcg blister with device Discontinued 1PUFF INHALATION As Directed February 23, 2020 12:00am April 25, 2020 6:58pmtake 1 puff(s) by inhalation once dailyTrelegy Ellipta 100-62.5-25 MCG/INH 1 puff Inhalation Once a day for 30 days Active Lxiwdxdvvto-Iyqxnpyel-Iwrrsv (Trelegy Ellipta) 200-62.5-25 MCG/ACT aerosol powder (16 sources)take 1 puff(s) by inhalation once kanadNskglhgnrpv-Pyidisbfk-Xxxudz (Trelegy Ellipta) 200-62.5-25 MCG/ACT aerosol powder Inhale 1 puff Daily Active furosemide 40 mg oral tablet (20 sources)Loop DiureticStart: 02-04-2024 End: 46-87-6664fggt 1 tablet by mouth once dailyfurosemide (Lasix) 40 MG tablet Indications: Pleural effusion on left , Shortness of breath Take 1 tablet (40 mg) by mouth Daily 30 tablet 11 05/22/2024 05/22/2025 ActiveStart: 09-26-2023 take 1 tablet by mouth once dailyfurosemide (LASIX) 20 mg tablet Take 1 tablet (20 mg total) by mouth daily. 0 09/26/2023 ActiveStart: 98-19-5832Yzjhlggwkb 40 mg tablet Active 60 MG PO Daily August 17, 2023 6:52pmStart: 77-88-3827hrcn 60 mg by mouth once dailyFurosemide Active 60 MG PO Daily August 17, 2023 6:52pmStart: 88-73-0740cbkj 1.5 tablets by mouth once dailyfurosemide (LASIX) 40 mg tablet Take 1.5 tablets (60 mg total) by mouth daily. 08/17/2023 Active Start: 06-17-2023 End: 67-50-2638uczz 1 tablet by mouth once dailyFurosemide (Lasix) 40 mg tablet Discontinued 40 MG PO Daily June 17, 2023 12:00am July 10, 2023 1:30pmStart: 09-05-2020 End: 44-71-2310Embvemldsf 40 mg Tablet Discontinued 20 MG PO Daily at 0800 0 September 05, 2020 1:00am September 21, 2020 1:41pmStart: 09-05-2020 End: 84-26-8191dody 20 mg by mouth once dailyFurosemide Discontinued 20 MG PO Daily at 0800 0 September 05, 2020 1:00am September 21, 2020 1:41pmStart: 04-29-2019 End: 44-13-4762dzdc 1 tablet by mouth every other dayFurosemide (Lasix) 20 mg Tablet Discontinued 20 MG PO As Directed April 29, 2019 12:00am February 23, 2020 4:42pm 20 mg po every other daylevoFLOXacin 500 mg oral tablet (20 sources)Quinolone AntimicrobialStart: 72-44-4161yupm 1 tablet by mouth in the morninglevoFLOXacin (Levaquin) 500 MG tablet Take 500 mg by mouth in the morning. 11/28/2023 Activeloperamide hydrochloride 2 mg oral capsule (20 sources)Opioid AgonistStart: 51-37-3646ygrs 1 capsule by mouth four times daily as neededloperamide (Imodium) 2 MG capsule Take 2 mg by mouth 4 (four) times a day as needed 02/25/2024 Activemagnesium oxide 400 mg oral tablet (18 sources)Start: 66-86-9368nrwumxvfz oxide (Mag-Ox) 400 (240 Mg) MG tablet 10/23/2023 Activemelatonin 5 mg oral capsule (20 sources)Start: 62-82-9766Manbqqyxh 5 MG capsule Indications: Insomnia, unspecified type Take 1 tablet by mouth as needed at bedtime (for sleep) 90 capsule 3 09/03/2024 ActiveStart: 55-12-7454bics 1 tablet by mouth at bedtime as needed for sleepMelatonin 5 mg tablet Active 5 MG PO Bedtime as needed for sleep February 15, 2024 12:00amStart: 95-78-3234Smynseaxt 5 mg oral tablet 30 tab(s), 0 Refill(s), Refills(s) 0 Start Date: 01/30/24 Status: OrderedStart: 06-93-9327Rkxfggdec 5 MG capsule Indications: Insomnia, unspecified type Take 1 tablet by mouth as needed at bedtime (for sleep) 90 capsule 3 12/17/2023 Active Start: 53-81-8822kzoz 1 tablet by mouth once daily as needed for sleepmelatonin (CIRCADIN) tablet Take 5 mg by mouth nightly as needed for sleep. 07/11/2023 ActiveStart: 78-78-5469vftf 1 tablet by mouth at bedtime as needed for sleep Melatonin 3 mg tablet Active 3 MG PO Bedtime as needed for Sleep July 11, 2023 12:00amMetoprolol (20 sources)beta-Adrenergic BlockerStart: 00-85-8064Mnsouxzwjj Succinate Er 24hr 50 Mg Tab Metoprolol Succinate Er 24hr 50 Mg Tab Start Date: 01/30/24 Status: OrderedStart: 08-03-2019 End: 70-13-3176xnyw 1 tablet by mouth once dailyMetoprolol Succinate 50 mg Tablet Extended Release 24 Hr Active 50 MG PO Daily August 1:00amStart: 19-27-9916xeszmldgtk (LOPRESSOR) injection 2.5 mgStart: 11-15-2017 End: 21-52-4899gyty 1 tablet by mouth once dailyMetoprolol Succinate (Toprol Xl) 100 mg Tablet Extended Release 24 Hr Discontinued 100 MG PO Daily January 01, 2019 1:00am September 21, 2020 1:41pmtake 1 tablet by mouth once daily metoprolol succinate XL (Toprol-XL) 25 MG 24 hr tablet Take 25 mg by mouth Daily Do not crush or chew. Activetake 1 tablet by mouth every twenty-four hours in the morningmetoprolol succinate XL (TOPROL XL) 50 mg 24 hr tablet Take 1 tablet (50 mg total) by mouth in the morning. Activetake 1 tablet by mouth once daily metoprolol (LOPRESSOR) 100 MG tablet Take 100 mg by mouth daily 0 Activemorphine injection 2 mg (1 source)Start: 57-43-7250vdzqevck injection 2 mgMultivitamin Adults 50+ - (5 sources)Start: 27-76-4859kgpr 1 tablet by mouth once dailyMultivitamin Adults 50+ - 1 tab(s) Orally Daily February, Activenitrofurantoin, macrocrystals 25 mg / nitrofurantoin, monohydrate 75 mg oral capsule (1 source)Nitrofuran AntibacterialStart: 06-22-2024 End: 21-86-8805xkyl 1 capsule by mouth in the morningnitrofurantoin, macrocrystal-monohydrate, (Macrobid) 100 MG capsule Indications: Failed back surgical syndrome Take 1 capsule (100 mg) by mouth in the morning and 1 capsule (100 mg) before bedtime. Do all this for 5 days. 10 capsule 06/22/2024 06/27/2024 Activenystatin 100 unt/mg topical powder (20 sources)Polyene AntifungalStart: 39-55-7812wwwjvpzp (Mycostatin) 965472 UNIT/GM powder Indications: Rash Apply topically 2 (two) times a day 60 g 1 05/06/2024 ActiveStart: 43-14-7160apadcnhc Top 100,000 units/g Pwdr Refill(s) 0 Start Date: 01/30/24 Status: OrderedStart: 29-34-8667xyxgzaji (MYCOSTATIN) powder Apply 1 Application topically in the morning and 1 Application before bedtime. Apply to abdominal folds and breast. . 06/17/2023 ActiveStart: 06-17-2023 nystatin (Mycostatin) 177078 UNIT/GM powder Indications: Rash APPLY TOPICALLY TO THE AFFECTED AREA(S) TWICE A DAY 60 g 0 06/17/2023 ActiveStart: 12-31-2022 End: 04-90-4120Fuytkhxb (Nystop) 100,000 unit/gram powder Active 1 APPLIC TOPICAL Twice daily July 102:00amStart: 12-26-2022 End: 52-98-7727Obdrepiz 100,000 unit/gram Cream Discontinued 1 APPLIC TOPICAL Twice daily December 26, 2022 1:00am July 10, 2023 2:32pmStart: 02-25-2020 End: 76-60-3068Bxkrdxqz (Nystop) 100,000 unit/gram Powder Discontinued 1 APPLIC TOPICAL Twice daily 0 February 25, 2020 12:00am April 25, 2020 5:24pmondansetron 4 mg disintegrating oral tablet (18 sources)Serotonin-3 Receptor AntagonistStart: 75-88-6727gifvqsgetbx ODT (Zofran-ODT) 4 MG disintegrating tablet DISSOLVE 1 (ONE) TABLET ON THE TONGUE EVERY8 HOURS NEEDED FOR NAUSEA AND VOMITING for 2 (TWO) days 08/14/2024 ActiveStart: 17-95-8138utaa 1 tablet by mouth every six hours as needed for nausea and vomitingondansetron (ZOFRAN) 4 mg tablet Take 1 tablet (4 mg total) by mouth every 6 (six) hours as needed for nausea or vomiting. 0 09/20/2023 ActiveStart: mg, Intravenous, EVERY 6 HOURS PRN, Nausea, Starting 08/02/19 at 0003pantoprazole 40 mg delayed release oral tablet (20 sources)Proton Pump InhibitorStart: 01-01-2019 End: 08-68-0493gaug 1 tablet by mouth before mealtimepantoprazole (ProtoNix) 40 MG EC tablet Indications: Gastroesophageal reflux disease without esophagitis Take 1 tablet (40 mg) by mouth in the morning. Take before meals. 90 tablet 3 09/03/2024 ActivePARoxetine hydrochloride 40 mg oral tablet (20 sources)Serotonin Reuptake InhibitorStart: 01-39-6757buulsqdnih Oral, Refills(s) 0 Start Date: 01/30/24 Status: OrderedStart: 11-15-2017 End: 95-27-5674pjnp 1 tablet by mouth in the morningPARoxetine (Paxil) 40 MG tablet Indications: Major depressive disorder in partial remission, unspecified whether recurrent (HCC) (CMS/HCC) Take 1 tablet (40 mg) by mouth in the morning. 90 tablet 3 09/03/2024 Activepolyethylene glycol 3350 35179 mg powder for oral solution (13 sources)Osmotic LaxativeStart: 45-06-1839hgqdhxxxovii glycol, PEG, 3350 (Glycolax) 17 GM/SCOOP powder take 17 gms BY MOUTH DIRECTED EVERYDAY NEEDED FOR CONSTIPATION 10/02/2024 ActivepredniSONE 20 mg oral tablet (20 sources)Start: 54-27-7648yedf 2 tablets by mouth in the morningpredniSONE (Deltasone) 20 MG tablet Take 40 mg by mouth in the morning. 02/25/2024 Active Start: 93-66-1169ooqh 1 tablet by mouth once dailypredniSONE (Deltasone) 20 MG tablet Indications: Chronic obstructive pulmonary disease with acute ex acerbation (CMS/HCC) TAKE 1 TABLET BY MOUTH ONCE A DAY 30 tablet 0 08/02/2023 ActiveStart: 07-14-2023 End: 45-35-8904zuqt 2 tablets by mouth once daily, then take 1 tablet by mouth once dailyPrednisone 10 mg Tablet Discontinued 20 MG PO Daily 10 02July 14, 2023 12:00am July 1:29pm 20mg daily for 3 days then 10mg daily for 3 days Please contact the information source for Taper Schedule details.Start: 07-14-2023 End: 12-04-9792bbdz 20 mg by mouth once daily, then take 10 mg by mouth once dailyPrednisone Discontinued 20 MG PO Daily 10 02July 14, 2023 12:00am August 20, 2023 1:29pm 20mg daily for 3 days then 10mg daily for 3 daysStart: 05-31-2022 End: 99-19-0887agdq 1 tablet by mouth once dailyPrednisone 50 mg tablet Discontinued 50 MG PO Daily 5 May 31, 2022 12:00am December 26, 2022 11:27pm Start: 11-15-2017 End: 45-80-9614knmx 3 tablets by mouth once daily at mealtimePrednisone 20 mg tablet Discontinued 60 MG PO Daily 15 November 15, 2017 1:00am August 01, 2019 6:32pm administer with food or milkStart: 11-15-2017 End: 24-00-2501ctiz 60 mg by mouth once daily at mealtimePrednisone Discontinued 60 MG PO Daily 15 November 15, 2017 1:00am August 01, 2019 6:32pm admin ister with food or milkpregabalin 75 mg oral capsule (20 sources)Start: 01-11-2025 End: 58-92-4187sfap 1 capsule by mouth in the morningpregabalin (Lyrica) 75 MG capsule Indications: Pain Take 1 capsule (75 mg) by mouth in the morning and 1 capsule (75 mg) before bedtime. Do all this for 10 days. 20 capsule 01/11/2025 ActiveStart: 04-51-4997eqahxmqyhk Oral, Refills(s) 0 Start Date: 01/30/24 Status: OrderedStart: 11-29-2022 End: 32-36-8408xtip 1 capsule by mouth once daily at bedtimepregabalin (Lyrica) 75 MG capsule Indications: Failed back surgical syndrome TAKE 1 CAPSULE BY MOUTH EVERY MORNING AND AT BEDTIME 60 capsule 1 06/22/2024 ActiveStart: 02-23-2020 End: 15-09-2731edoq 1 capsule by mouth twice dailyPregabalin 75 mg Capsule Discontinued 75 MG PO Twice daily 6 3 February 25, 2020 1:29pm April 25, 2020 5:24pmQUEtiapine 50 mg oral tablet (4 sources)Atypical AntipsychoticStart: 81-88-2111livn 1 tablet by mouth once dailyQUEtiapine (SEROquel) 50 mg tablet Take 1 tablet (50 mg total) by mouth nightly. 0 10/23/2023 Activesacubitril 24 mg / valsartan 26 mg oral tablet (5 sources)Angiotensin 2 Receptor Blockertake 1 tablet by mouth in the morning sacubitril-valsartan (Entresto) 24-26 MG tablet Take 1 tablet by mouth in the morning and 1 tablet before bedtime. Activesennosides, nursing home 8.6 mg oral tablet (2 sources)Start: 82-99-3027unzy 1 tablet by mouth once daily at bedtime Sennosides (Senna Lax) 8.6 mg Tablet Active 1 TAB PO Daily at bedtime September 21, 2020 12:90hq3393 ml sodium chloride 9 mg/ml injection (19 sources)Start: 51-75-8286amhtpk chloride 0.9 % solution 10/04/2023 Active Start: 39-58-4539Scsmrzygsox, at 100 mL/hr, CONTINUOUS, Starting 08/02/19 at 0030solifenacin succinate 10 mg oral tablet (18 sources)Cholinergic Muscarinic AntagonistStart: 07-35-2893yiur 1 tablet by mouth once dailysolifenacin (VESIcare) 10 MG tablet Indications: Female incontinence Take 1 tablet (10 mg) by mouthDaily Swallow tablet whole; do not crush, chew, or split. 90 tablet 1 01/10/2024 Active1 ml triamcinolone acetonide 40 mg/ml prefilled syringe (20 sources)CorticosteroidStart: 79-55-3467gvvgrmtibqwas acetonide (Kenalog-40) injection 40 mgStart: 35-94-6732Jusginchqavdt Acetonide 0.1 % Cream Active 1 APPLIC TOPICAL Twice daily December 26, 2022 1:00amStart: 18-36-2354Yynklzd -40 mg May, 40 mgtriamcinolone (KENALOG) 0.1 % cream Apply 1 Application topically in the morning and 1 Application before bedtime. Active7 actuat umeclidinium 0.0625 mg/actuat dry powder inhaler (5 sources)AnticholinergicUmeclidinium [place] (Incruse Ellipta) 62.5 MCG/ACT aerosol powder Inhale Daily Active Completed/Discontinued Medications MedicationDrug Class(es)DatesSig (Normalized)Sig (Original)acetaminophen 325 mg / oxyCODONE hydrochloride 5 mg oral tablet (14 sources)Opioid AgonistStart: 10-04-2024 End: 66-17-9477bqqf 1 tablet by mouth every six hours as needed for pain oxyCODONE-acetaminophen (Percocet) 5-325 MG tablet TAKE 1 TABLET BY MOUTH EVERY 6 (SIX) HOURS NEEDED FOR PAIN for 3 (THREE) days 10/04/2024 10/06/2024 Discontinued (Ineffective)Start: 04-23-2018 End: 66-15-1146yzsk 1 tablet by mouth every four to six hours as needed for pain Oxycodone-Acetaminophen (Percocet) 5-325 mg tablet Discontinued 1 TAB PO EVERY 4-6 HOURS as needed for pain April 23, 2018 June 22, 2018 9:09pm Albuterol (Eqv-ProAir HFA) 90 mcg/inh inhalation aerosol (2 sources)Start: 97-16-6563Pxdslkemr (Eqv-ProAir HFA) 90 mcg/inh inhalation aerosol Refill(s) 0, 8 EA, 0 Refill(s), INHALE 2 PUFFS BY MOUTH EVERY 4 HOURS IF NEEDED FOR WHEEZING OR SHORTNESS OF BREATH Start Date: 01/30/24 Status:Ordered aspirin 81 mg delayed release oral tablet (20 sources)Platelet Aggregation Inhibitor, Nonsteroidal Anti-inflammatory Drug Start: 04-28-2020 End: 83-95-9768wqoj 1 tablet by mouth once dailyAspirin 81 mg Tablet,Delayed Release (Dr/Ec) Discontinued 81 MG PO Daily September 21, 2020 1:00am December 26, 2022 11:26pmStart: 02-86-1401odtjuec chewable tablet 81 mgStart: 04-29-2019 End: 71-94-4083vgzl 1 tablet by mouth once dailyAspirin 81 mg Tablet,Delayed Release (Dr/Ec) Discontinued 81 MG PO Daily April 29, 2019 12:00am April 25, 2020 6:57pmtake 1 tablet by mouth once dailyAspirin 81 81 MG 1 tablet Orally Once a day Activebudesonide 0.25 mg/ml inhalation suspension (20 sources)CorticosteroidStart: 09-05-2020 End: 22-30-7224bzbm 0.5 mg by inhalation twice dailyBudesonide 0.5 mg/2 mL Suspension For Nebulization Discontinued 0.5 MG INHALATION BID@0600,1800 76764 September 21, 2020 1:00am July 10, 2023 2:65ma123 actuat budesonide 0.16 mg/actuat / formoterol fumarate 0.0045 mg/actuat metered dose inhaler (12 sources)Corticosteroid, beta2-Adrenergic AgonistStart: 11-15-2017 End: 41-94-5736Zhdbxusnzh-Formoterol (Symbicort) 160-4.5 mcg/actuation Hfa Aerosol Inhaler Discontinued 1 PUFF INHALATION As Directed as needed for Shortness Of Breath November 15, 2017 1:00am February 23, 2020 4:43pmCalcium (10 sources)Phosphate Binder, CalciumStart: 12-26-2022 End: 82-09-6534pkqp 1 capsule by mouth once dailyCalcium 600 mg Capsule Discontinued 600 MG PO Daily December 26, 2022 1:00am August 17, 2023 6:52pm Start: 12-26-2022 End: 80-49-6280uwou 1 capsule by mouth once dailyCalcium 600 mg Capsule Discontinued 600 MG PO Daily December 26, 2022 12:00am August 17, 2023 5:52pm Start: 12-26-2022 End: 12-12-3652rgsj 600 mg by mouth once dailyCalcium Discontinued 600 MG PO Daily December 26, 2022 1:00am August 17, 2023 6:52pmStart: 35-43-2244qflh 600 mg by mouth once dailyCalcium Active 600 MG PO Daily December 26, 2022 1:00am Start: 04-03-5119hyzl 600 mg by mouth once dailyCalcium Active 600 MG PO Daily December 26, 2022 12:00amcalcium carbonate 1250 mg chewable tablet (20 sources)Start: 12-26-2022 End: 54-73-3770yshb 1 tablet by mouth once dailyCalcium Carbonate 500 mg calcium (1,250 mg) Tablet,Chewable Discontinued 500 MG PO Daily December 1:00am August 17, 2023 6:51pmStart: 80-35-0311iloh 1 tablet by mouth every twelve hourscalcium carbonate 1500 (600 Ca) MG tablet Take 1 tablet by mouth every 12 (twelve) hours. 05/05/2020 Activetake 1 tablet by mouth twice daily at mealtime calcium carbonate 600 mg calcium (1,500 mg) tablet Take 600 mg by mouth 2 times a day with meals. Activetake 1 tablet by mouth every twenty-four hoursCalcium 1250 MG 1 tablet Orally Once a day ActivecefTRIAXone 1000 mg injection (12 sources)Cephalosporin AntibacterialStart: 09-05-2020 End: 23-30-7377gjed 1 g intravenously every twenty-four hoursCeftriaxone 1 gram Recon Soln Discontinued 1 GM IV Q24H 0 September 05, 2020 1:00am September 21, 2020 1:41pmdocusate sodium 100 mg oral capsule (12 sources)Start: 09-05-2020 End: 61-52-8557mndi 2 capsules by mouth twice dailyDocusate Sodium (Dok) 100 mg Capsule Discontinued 200 MG PO Twice daily 0 September 05, 2020 1:00amNove2019 1:41pmdoxycycline hyclate 100 mg oral capsule (20 sources)Tetracycline-class DrugStart: 06-17-2023 End: 10-41-6263hoja 1 capsule by mouth twice dailyDoxycycline Hyclate 100 mg capsule Discontinued 100 MG PO Twice daily 14 June 17, 2023 12:00am July 10, 2023 1:38pmergocalciferol 1.25 mg oral capsule (17 sources)Provitamin D2 CompoundStart: 04-28-2020 End: 78-25-3680Nfnymevyxeomps (Vitamin D2) 1,250 mcg (50,000 unit) Capsule Discontinued 65934 UNIT PO every month April 28, 2020 12:00am December 26, 2022 11:26pmStart: 04-28-2020 End: 26-64-2086eyrz 79284 [IU] by mouth every monthErgocalciferol (Vitamin D2) Discontinued 16738 UNIT PO every month April 28, 2020 12:00am December 26, 2022 11:26pmtake 1 capsule by mouth once dailyErgocalciferol 50 MCG (2000 UT) 1 capsule Orally Once a day Iknhys14 hr fentaNYL 0.012 mg/hr transdermal system (12 sources)Opioid AgonistStart: 09-21-2020 End: 46-82-7537Ahlqkjzg 12 mcg/hr Patch 72 Hour Discontinued 12 MCG TRANSDERML Every 72 hours 3 September 21, 2020 December 26, 2022 11:27pmgabapentin 400 mg oral capsule (12 sources)Anti-epileptic AgentStart: 01-01-2019 End: 78-37-6043svqw 1 capsule by mouth three times dailyGabapentin 400 mg Capsule Discontinued 400 MG PO Three times daily January 01, 2019 1:00am February 23, 2020 4:42pmheparin sodium, porcine 5000 unt/ml injectable solution (12 sources)Unfractionated Heparin, Anti-coagulantStart: 09-05-2020 End: 98-05-0329dowrcq 5000 [IU] by subcutaneous injection every twelve hours Heparin (Porcine) 5,000 unit/mL Solution Discontinued 5000 UNIT SUBCUT Every 12 hours 0 September 05, 2020 1:00am September 21, 2020 1:41pmhydrOXYzine hydrochloride 25 mg oral tablet (17 sources)AntihistamineStart: 02-23-2020 End: 14-72-1461htia 1 tablet by mouth every eight hours as neededHydroxyzine Hcl 25 mg tablet Discontinued 25 MG PO Q8H as needed for as directed February 23, 2020 12:00am September 05, 2020 1:49pmammonium lactate 120 mg/ml topical cream (12 sources)Start: 12-26-2022 End: 49-20-0771Ysmnrvsx Lactate 12 % Cream Discontinued 1 APPLIC TOPICAL Twice daily December 26, 2022 1:00am August 17, 2023 6:51pmStart: 02-13-2022 End: 87-33-9850myfwndht lactate (Lac-Hydrin) 12 % lotion Apply 1 application topically every 12 (twelve) hours. 0 02/13/2022 12/09/2023 Discontinued (Other) lisinopril 5 mg oral tablet (20 sources)Angiotensin Converting Enzyme InhibitorStart: 03-20-2023 End: 61-25-6212bzfc 1 tablet by mouth once dailyLisinopril 5 mg tablet Active 5 MG PO Daily July 10, 2023 12:00am On Hold: Until approved byPCPStart: 12-31-2022 End: 77-86-7882wubs 1 tablet by mouth once dailyLisinopril 2.5 mg Tablet Discontinued 2.5 MG PO Daily 0 December 31, 2022 1:00am July 1032:31pm Start: 12-26-2022 End: 99-71-7248vpyu 1 tablet by mouth once dailyLisinopril 5 mg tablet Discontinued 5 MG PO Daily December 26, 2022 1:00am December 31, 2022 11:52amStart: 08-31-2020 End: 61-78-5919iuyo 1 tablet by mouth once dailyLisinopril 5 mg tablet Discontinued 5 MG PO Daily August 31, 2020 1:00am September 21, 2020 1:41pm Start: 04-28-2020 End: 85-99-0837cbhq 10 mg by mouth once dailyLisinopril 20 mg Tablet Discontinued 10 MG PO Daily April 28, 2020 12:00am August 31, 2020 5:40pm Start: 04-28-2020 End: 60-77-7846fpkm 10 mg by mouth once dailyLisinopril Discontinued 10 MG PO Daily April 28, 2020 12:00am August 31, 2020 5:40pmStart: 01-01-2019 End: 49-50-1268Cemcmoopap 40 mg tablet Discontinued TABLET August 01, 2019 12:00am August 01, 2019 6:35pmmesalamine 66.7 mg/ml enema (1 source)AminosalicylateStart: 09-08-2012 End: 62-24-7696yaqh 60 mL rectal route once dailymesalamine (ROWASA) [address] 60 mLs rectally nightly. 1 enema 3 09/08/2012 08/02/2019 Discontinued miconazole nitrate 20 mg/ml topical cream (17 sources)Azole AntifungalStart: 04-28-2020 End: 63-85-7213Cvgyjdpbpp Nitrate (Antifungal Cream (Miconazole)) 2 % Cream Discontinued 1 APPLIC TOPICAL Twice daily April 28, 2020 12:00am September 05, 2020 1:49pm Erythema of skin folds of abdomen, breast and groinMiconazole Nitrate 2 % 1 application Externally Twice a day prn Active Hpytyiqtlrno-Pduscknd-Dejgtg (Multivitamin 50 Plus) Tablet (12 sources)Start: 02-23-2020 End: 10-63-9094Wdztfappjmal-Minerals-Lutein (Multivitamin 50 Plus) Tablet Discontinued 1 TAB PO Daily February 22, 2020 11:00pm April 25, 2020 5:58pm Start: 02-23-2020 End: 77-86-8917Gpduuyvzgqwe-Minerals-Lutein (Multivitamin 50 Plus) Tablet Discontinued 1 TAB PO Daily February 23, 2020 12:00am April 25, 2020 6:58pm naproxen 500 mg oral tablet (12 sources)Nonsteroidal Anti-inflammatory DrugStart: 01-02-2019 End: 91-71-2730hdve 1 tablet by mouth twice daily as needed for painNaproxen 500 mg tablet Discontinued 500 MG PO Twice daily as needed for pain January 02, 2019 1:00am August 01, 2019 6:31pm administer with food or milkneomycin sulfate 500 mg oral tablet (1 source)Aminoglycoside AntibacterialStart: 01-29-2012 End: 69-03-0299dcdu 1 tablet by mouth three times daily, then take 2 tablets by mouth once dailyneomycin (MYCIFRADIN) 500 MG tablet Indications: Diverticulitis of colon (without mention of hemorrhage)(562.11) Take 1 tablet by mouth 3 times daily. Pt to take 2 tablets at 1pm, 2pm, and 11pm day prior to surgery 6 tablet 0 01/29/2012 08/02/2019 Discontinued (LIST CLEANUP)nitroglycerin 0.4 mg sublingual tablet (17 sources)Nitrate VasodilatorStart: 04-29-2019 End: 56-55-4428Bikjdcszlcqzb 0.4 mg Tablet, Sublingual Discontinued 0.4 MG SUBLINGUAL Q5M as needed for Chest Pain25 April 29, 2019 12:00am April 25, 2020 6:58pmNitroglycerin 0.[address] ONE TABLET UNDER TONGUE FOR CHEST PAIN, MAY REPEAT EVERY 5 MINUTES, AFTER 3 DOSES CALL 911 Sublingual as needed Active Mertzon-3 Fatty Acids-Fish Oil (Fish Oil) 300-1,000 mg capsule (12 sources)Start: 08-01-2019 End: 23-50-7034qemt 1 capsule by mouth once dailyOmega-3 Fatty Acids-Fish Oil (Fish Oil) 300-1,000 mg capsule Discontinued 1000 MG PO Daily July 31, 2019 11:00pm February 23, 2020 3:42pmStart: 08-01-2019 End: 72-01-4755opfi 1 capsule by mouth once dailyOmega-3 Fatty Acids-Fish Oil (Fish Oil) 300-1,000 mg capsule Discontinued 1000 MG PO Daily August 01, 2019 12:00am February 23, 2020 4:42pmomeprazole 20 mg delayed release oral capsule (1 source)Proton Pump Inhibitor End: 47-53-1619pzbe 1 capsule by mouth once dailyomeprazole (PRILOSEC) 20 MG capsule Take 20 mg by mouth daily. 0 08/02/2019 Discontinued (LIST CLEANUP) oxybutynin chloride 5 mg oral tablet (1 source)Cholinergic Muscarinic Antagonist End: 70-57-1082gpjl 1 tablet by mouth three times dailyoxybutynin (DITROPAN) 5 MG tablet Take 5 mg by mouth 3 times daily. 0 08/02/2019 Discontinued (LIST CLEANUP)oxyCODONE hydrochloride 5 mg oral tablet (12 sources)Opioid AgonistStart: 09-21-2020 End: 16-26-2788urke 1 tablet by mouth every six hours as needed for pain Oxycodone 5 mg Tablet Discontinued 5 MG PO Q6H as needed for Pain (Scale Score 7-10) 16 03September 21, 2020 December 26, 2022 11:27pmmicroencapsulated potassium chloride 10 meq extended release oral tablet (20 sources)Start: 05-22-2024 End: 95-79-2549sezwgthwp chloride CR (Klor-Con M10) 10 MEQ ER tablet Indications: Pleural effusion on left , Shortness of breath Take 2 tablets (20 mEq) by mouth Daily Do not crush or chew. 60 tablet 05/22/2024 06/22/2024 Discontinued (Therapy completed)Start: 22-83-1585sofo 20 mEq by mouth once daily Potassium Chloride Active 20 MEQ PO Daily February 15, 2024 12:00amStart: 17-12-1010fpulxzvun chloride 10 mEq Cap-ER Refills(s) 0 Start Date: 01/30/24 Status: OrderedStart: 42-34-2227rvgx 2 capsules by mouth once dailyPotassium Chloride 10 mEq capsule, extended release Active 20 MEQ PO Daily February 15, 2024 12:00amtake 1 tablet by mouth once dailypotassium chloride CR 10 mEq ER tablet Take 1 tablet (10 mEq) by mouth once daily. Do not crush, chew, or split. ActivePt Unable To Verify (12 sources)Start: 08-31-2020 End: 74-12-8830Vq Unable To Verify Discontinued August 31, 2020 12:00am September 05, 2020 12:49pmStart: 08-31-2020 End: 92-97-4662Mu Unable To Verify Discontinued August 31, 2020 1:00am September 05, 2020 1:49pmraNITIdine 150 mg oral tablet (12 sources)Histamine-2 Receptor AntagonistStart: 01-01-2019 End: 14-61-0550iapk 1 tablet by mouth once dailyRanitidine Hcl (Zantac) 150 mg Tablet Discontinued 150 MG PO Daily January 01, 2019 1:00am August 01, 2019 6:35pmrisperiDONE 2 mg oral tablet (13 sources)Atypical AntipsychoticStart: 01-01-2019 End: 76-09-3945pwrd 1 tablet by mouth once daily at bedtimeRisperidone (Risperdal) 2 mg Tablet Discontinued 2 MG PO Daily at bedtime January 01, 2019 1:00am April 25, 2020 6:58pmSennosides (Senna Lax) 8.6 mg Tablet (10 sources)Start: 09-21-2020 End: 29-83-3618qqzq 1 tablet by mouth once daily at bedtimeSennosides (Senna Lax) 8.6 mg Tablet Discontinued 1 TAB PO Daily at bedtime September 21, 2020 1:00am December 26, 2022 11:27pmStart: 09-21-2020 End: 09-00-3527adhy 1 tablet by mouth once daily at bedtimeSennosides (Senna Lax) 8.6 mg Tablet Discontinued 1 TAB PO Daily at bedtime September 21, 2020 12:00am December 26, 2022 10:27pmsimvastatin 40 mg oral tablet (15 sources)HMG-CoA Reductase InhibitorStart: 11-15-2017 End: 70-95-3712hmju 1 tablet by mouth once daily in the eveningSimvastatin 40 mg Tablet Discontinued 40 MG PO Every evening November 15, 2017 1:00am April 29, 2019 8:29amticagrelor 90 mg oral tablet (20 sources)Start: 04-29-2019 End: 80-21-0270yolx 1 tablet by mouth twice dailyTicagrelor (Brilinta) 90 mg Tablet Discontinued 90 MG PO Twice daily September 21, 2020 1:00am December 26, 2022 11:27pmtraZODone hydrochloride 100 mg oral tablet (12 sources)Serotonin Reuptake InhibitorStart: 01-01-2019 End: 65-16-4214rduw 1 tablet by mouth once daily at bedtimeTrazodone 100 mg Tablet Discontinued 100 MG PO Daily at bedtime January 01, 2019 1:00am September 01, 2020 1:53pm Problems Active Problems Problem ClassificationProblemDateDocumented DateEpisodic/ChronicAcute cerebrovascular disease (12 sources)Cerebrovascular accident; Translations: [Cerebral infarction, unspecified]68-31-4904VbenjxkLhpbp myocardial infarction (2 sources)Non-ST elevation (NSTEMI) myocardial infarction; Translations: [Non- ST elevation (NSTEMI) myocardial infarction]Onset: 93-21-8678RhdlbdyUewlczs disorders (20 sources)Anxiety; Translations: [Anxiety disorder, unspecified]Onset: 396112-30-6905QmjaarwDufopqikc infection; unspecified site (2 sources)Streptococcal infection, unspecified site; Translations: [Resistance to vancomycin]Onset: 87-71-3362MjgilrhlCnraqhcc of urinary tract (5 sources)Kidney stone; Translations: [Calculus of kidney]EpisodicChronic kidney disease (20 sources)Chronic kidney disease stage 3A ; Translations: [Stage 3a chronic kidney disease (HCC) ([facility]/HCC)]Onset: 060661-03-0414JkrdvdgGwdlbku kidney disease (3 sources)Chronic kidney disease; Translations: [Chronic kidney disease, stage 3b ([facility]/HCC)]Onset: 80-03-7342Qsybhxf obstructive pulmonary disease and bronchiectasis (20 sources)Chronic obstructive lung disease; Translations: [Chronic obstructive pulmonary disease, unspecified]Onset: 03-28-2023 Resolved: 445084-21-1971UmoeccpVkihrld ulcer of skin (20 sources)Non-pressure chronic ulcer of other part of left foot with fat layer exposed; Translations: [Ulcer of other part of foot]Onset: 06-14-2023 Resolved: 638131-95-5023UsvgjapGcqvhmscrd heart failure; nonhypertensive (20 sources)Congestive heart failure; Translations: [Heart failure, unspecified] Onset: 01-10-2024 Resolved: 276077-80-8202PyzxhnzOztcoxqb atherosclerosis and other heart disease (20 sources)Coronary arteriosclerosis; Translations: [Disorder of cardiovascular system]Onset: 842407-17-2822VumbcwuMmtqzpbnvh and other anemia (2 sources)Anemia co-occurrent and due to chronic kidney disease stage 3; Translations: [Anemia due to stage 3a chronic kidney disease (HCC) ([facility]/HCC)] 41-68-8432YykqldoCkvpcrxmqa and other anemia (12 sources)Anemia; Translations: [Anemia, unspecified]63-14-6548Lckncdls Deficiency and other anemia (3 sources)Iron deficiency anemia, unspecified; Translations: [Iron deficiency anemia, unspecified]Onset: 74-45-2895BvncptxkTosxtrxk, dementia, and amnestic and other cognitive disorders (1 source)Alzheimer's disease, unspecified; Translations: [Alzheimer's disease, unspecified]Onset: 42-87-8143IrkugleSbxxhssnp of lipid metabolism (20 sources)Mixed hyperlipidemia; Translations: [Hyperlipidemia]Onset: 885723-88-4231UfeijfbPyiachviuvcoaz and diverticulitis (20 sources)Diverticular disease; Translations: [Diverticulosis of intestine, part unspecified, without perforation or abscess without bleeding]Onset: 12-31-2022 Resolved: 074500-01-9364JjvlmzwAkphkfbtcq disorders (20 sources)Gastroesophageal reflux disease; Translations: [Gastro-esophageal reflux disease without esophagitis]Onset: 01-18-2022 Resolved: 35-65-7936HmsftpmEzpkooydq hypertension (20 sources)Essential hypertension; Translations: [Hypertensive disorder]Onset: 08-02-2019 Resolved: 260677-61-7376YsiwfywHvbom and electrolyte disorders (2 sources)Hyperkalemia; Translations: [Hypokalemia]Onset: 22-08-9023Arnqnkcb Genitourinary symptoms and ill-defined conditions (20 sources)Incontinence; Translations: [Unspecified urinary incontinence]Onset: 619610-17-9010OntaqtyOzbgejaddczbg symptoms and ill-defined conditions (1 source)Retention of urine; Translations: [Retention of urine, unspecified] Onset: 92-25-4376JkoktvcxFbbviqmdvqju with complications and secondary hypertension (3 sources)Hypertensive chronic kidney disease with stage 1 through stage 4 chronic kidney disease, or unspecified chronic kidney disease; Translations: [Hypertensive heart disease with heart failure]Onset: 92-34-6818CsxsetaIdew disorders (20 sources)Severe recurrent major depression without psychotic features; Translations: [Major depressive disorder, recurrent severe without psychotic features]Onset: 04-24-2022 Resolved: 33-43-4556WtcpcckAkeamsqwq or stenosis of precerebral arteries (20 sources)Bilateral stenosis of carotid arteries; Translations: [Occlusion and stenosis of bilateral carotid arteries]Onset: 03-28-2023 Resolved: 588884-46-3659ZffulpzHaginjdqsgcyqm (20 sources)Osteoarthritis of left knee joint; Translations: [Unilateral primary osteoarthritis, left knee]Onset: 03-28-2023 Resolved: 423361-60-3968MgtyiplKcvjdkgaqwrq (20 sources)Senile osteoporosis; Translations: [Age-related osteoporosis without current pathological fracture]Onset: 03-28-2023 Resolved: 241332-34-0437AmlwjgrDufdb circulatory disease (12 sources)Low blood pressure; Translations: [Hypotension, unspecified] 52-11-9870BaghttozAxkhs connective tissue disease (20 sources)History of total hip arthroplasty; Translations: [Presence of left artificial hip joint]Onset: 836601-27-0783ZflbpbbYypvn connective tissue disease (3 sources)Right achilles tendonitis; Translations: [Achilles tendinitis, right leg]06-92-7825VjspvdzaTmkmr connective tissue disease (1 source)Disorder of musculoskeletal system; Translations: [Other specified disorders of synovium, left ankle and foot]99-28-6071ZltvnewlJogsr diseases of veins and lymphatics (3 sources)Vascular insufficiency; Translations: [Venous insufficiency (chronic) (peripheral)]79-23-7298AcphvdgmEqtqa fractures (6 sources)Fracture of sixth thoracic vertebra; Translations: [Unspecified fracture of T5-T6 vertebra, subsequent encounter for fracture with routine healing]Onset: 985163-63-2873ZyeblsvbWvelr gastrointestinal disorders (2 sources)H/O: colostomy; Translations: [Status post Aman procedure (HCC)] Onset: 950800-96-3569WkrkxptRcauo gastrointestinal disorders (1 source)Dysphagia, oropharyngeal phase; Translations: [Dysphagia, oropharyngeal phase]Onset: 24-36-0306CjbjbfabSunnm infections; including parasitic (1 source)Personal history of other infectious and parasitic diseases; Translations: [Personal history of other infectious and parasitic diseases] Onset: 67-55-9387HrjcoogbXprje injuries and conditions due to external causes (10 sources)Injury of head; Translations: [Unspecified injury of head, initial encounter]28-85-5517DnrojdawYekkl injuries and conditions due to external causes (5 sources)Unspecified injury of head, initial encounter; Translations: [Head injury, unspecified]81-48-9169QbqfdfntYeudw lower respiratory disease (2 sources)Interstitial lung disease; Translations: [Interstitial pulmonary disease, unspecified]01-43-7398MctrkfgSokpy lower respiratory disease (2 sources)Wheezing; Translations: [Wheezing]05-06-7809AwlzoszfTjgdo lower respiratory disease (8 sources)Shortness of breath; Translations: [Shortness of breath]Onset: 94-10-6237CsewmdwnMsckn lower respiratory disease (1 source)Shortness of breathOnset: 47-38-3442QgpxawasVptoh nervous system disorders (10 sources)Chronic pain; Translations: [Other chronic pain]ChronicOther nervous system disorders (12 sources)Postoperative pain ; Translations: [Other acute postprocedural pain] 52-66-3586CmkzipnePsjgc nervous system disorders (2 sources)Post-surgery back hxhd69-99-0963UnpuwsbgXcsnt non-traumatic joint disorders (1 source)Pain in unspecified hip; Translations: [Pain in joint, pelvic region and thigh]68-46-8094PfujtrosCqrfg non-traumatic joint disorders (4 sources)Sinus tarsi syndrome; Translations: [Pain in left ankle and joints of left foot]Onset: 660495-46-3718AiyhflsbTnkjj nutritional; endocrine; and metabolic disorders (2 sources)Body mass index (BMI) 35.0-35.9, adult; Translations: [Body mass index (BMI) 35.0-35.9, adult]Onset: 98-30-4523VwnlhaiXmhfo nutritional; endocrine; and metabolic disorders (2 sources)Body mass index (BMI) 32.0-32.9, adult; Translations: [Body mass index (BMI) 32.0-32.9, adult]Onset: 26-81-3648KhaidexIkzal nutritional; endocrine; and metabolic disorders (1 source)Hypomagnesemia; Translations: [Hypomagnesemia]Onset: 51-60-9125Qxreqhy Other nutritional; endocrine; and metabolic disorders (20 sources)Obesity caused by energy imbalance; Translations: [Morbid (severe) obesity due to excess calories]Onset: 547548-37-0712GajmqebLcgnf screening for suspected conditions (not mental disorders or infectious disease) (2 sources)Abnormal findings on diagnostic imaging of other specified body structures; Translations: [CT of chest abnormal]Onset: 683293-13-2949 ChronicOther upper respiratory disease (5 sources)Seasonal allergic rhinitis; Translations: [Other seasonal allergic rhinitis]ChronicOther upper respiratory disease (5 sources)Allergic rhinitis; Translations: [Allergic rhinitis, unspecified] ChronicPeri-; endo-; and myocarditis; cardiomyopathy (except that caused by tuberculosis or sexually transmitted disease) (2 sources)Other cardiomyopathies; Translations: [Other cardiomyopathies]Onset: 08-38-7725GqoycijFigclltktd and visceral atherosclerosis (20 sources)Atherosclerosis of aorta; Translations: [Atherosclerosis of aorta] Onset: 930071-49-2579QkrzezqYmggpkgm of female genital organs (2 sources)Cystocele; Translations: [Cystocele, unspecified]61-55-4435Cgnsyit Residual codes; unclassified (20 sources)Sleep apnea; Translations: [Sleep apnea, unspecified]Onset: 399844-70-0428NtpkzzuXpxabjpj codes; unclassified (6 sources)Obstructive sleep apnea syndrome; Translations: [Obstructive sleep apnea (adult) (pediatric)]Onset: 653053-73-1631CdvqdanIbxktepn codes; unclassified (2 sources)Obstructive sleep apnea (adult) (pediatric); Translations: [Obstructive sleep apnea (adult) (pediatric)]Onset: 92-67-4488ZubcofaHosilvou codes; unclassified (12 sources)History of repair of hip joint; Translations: [Other specified postprocedural states]69-07-1414OnruvmkdCikhdbtg codes; unclassified (14 sources)Patient encounter status; Translations: [Encounter for prophylactic measures, unspecified]69-96-1109SvznpkifNrmirtjf codes; unclassified (2 sources)Other specified health status; Translations: [Other specified conditions influencing health status]38-72-8616DrtdcmsfCdnoqkkw codes; unclassified (8 sources)Edema of foot; Translations: [Localized edema]07-48-9458Pwttkhmm Residual codes; unclassified (3 sources)Pain; Translations: [Pain, unspecified]56-32-5943CkqtawadTkpwnmhliqf failure; insufficiency; arrest (adult) (20 sources)Chronic hypoxemic respiratory failure; Translations: [Chronic respiratory failure with hypoxia]Onset: 10-05-2023 Resolved: 738968-69-6888TdtytrhLyuponakv and history of mental health and substance abuse codes (2 sources)Personal history of nicotine dependence; Translations: [Ex-cigarette smoker]Onset: 517562-71-6034JhnfdvifOftafdqjooz; intervertebral disc disorders; other back problems (20 sources)Degeneration of lumbar intervertebral disc; Translations: [Other intervertebral disc degeneration, lumbar region]Onset: 03-28-2023 Resolved: 803872-28-0175KayrdltQffkpdimu cerebral ischemia (20 sources)Transient cerebral ischemia; Translations: [Transient cerebral ischemic attack, unspecified]Onset: 801483-30-2086FcbgtotFooikxdfhqvc (2 sources)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; Translations: [Anticoagulated]Onset: 08-02-2019 75-53-6990Yybvuxcisyzi (2 sources)Chronic ulcer of left fxbq42-60-4645Qyykzdtsvgie (1 source)Other specified cough; Translations: [Other specified cough]Onset: 53-12-0189Omnxlzcuvfyb (1 source)AKIOnset: 24-57-1096Sidsteiokjrw (1 source)Longstanding persistent atrial fibrillation; Translations: [Longstanding persistent atrial fibrillation]Onset: 10-07-2023 Past or Other Problems Problem ClassificationProblemDateDocumented DateEpisodic/ChronicAbdominal hernia (20 sources)Umbilical hernia; Translations: [Umbilical hernia without obstruction or gangrene]Onset: 12-31-2022 Resolved: 496646-21-1495JmedurypTfdtc and unspecified renal failure (20 sources)Injury of kidney; Translations: [Acute kidney failure, unspecified] Onset: 10-05-2023 Resolved: 152309-96-3625XrbvugtfOsetkbpeilmhwq/social admission (20 sources)Reduced mobility; Translations: [Other reduced mobility]Onset: 04-01-2023 Resolved: 253173-80-4008MwgvxvdhXvhlkghr reactions (20 sources)Atopic dermatitis; Translations: [Intrinsic (allergic) eczema]Onset: 08-21-2023 Resolved: 493278-00-2419VnesxwpFyxufliu reactions (20 sources)Inflammatory dermatosis; Translations: [Dermatitis, unspecified] Onset: 779318-01-7024SjvcsjlcAtpuoty dysrhythmias (20 sources)Longstanding persistent atrial fibrillation; Translations: [Longstanding persistent atrial fibrillation]Onset: 08-02-2019 Resolved: 972005-82-8308TdfnuwrFpnrkzfr atherosclerosis and other heart disease (20 sources)Coronary angioplasty status; Translations: [Stented coronary artery] Onset: 01-06-2024 Resolved: 81-78-5577QmrnwrjlKkpnbjfipk and other anemia (20 sources)Microcytic anemia; Translations: [Iron deficiency anemia, unspecified]Onset: 01-06-2024 Resolved: 891947-72-4456JprqmcobXmydnmhb mellitus with complications (20 sources)Neuropathy due to diabetes mellitus; Translations: [Type 2 diabetes mellitus with diabetic neuropathy, unspecified]Onset: 03-25-2024 Resolved: 964317-71-3089KqxquzdQwqvctgj mellitus without complication (20 sources)Impaired fasting glycemia; Translations: [Impaired fasting glucose] Onset: 601678-89-6691UnecuhviAkhojylh of white blood cells (20 sources)Leukocytosis; Translations: [Elevated white blood cell count, unspecified]Onset: 03-25-2024 Resolved: 540174-91-0158NqrmhquI Codes: Fall (20 sources)Fall; Translations: [Unspecified fall, initial encounter]Onset: 06-14-2023 Resolved: 323810-61-4390LbqdazhiPkncqbwm of lower limb (20 sources)Fracture of femur; Translations: [Unspecified fracture of left femur, sequela]Onset: 12-31-2022 Resolved: 959076-67-0065SwpurbbcWsbdfqcl of neck of femur (hip) (20 sources)Intertrochanteric fracture; Translations: [Displaced intertrochanteric fracture of unspecified femur, initial encounter for closed fracture]Onset: 03-25-2024 Resolved: 795362-94-5791YbgynvhnXwvmqhobyk obstruction without hernia (20 sources)Small bowel obstruction; Translations: [Unspecified intestinal obstruction, unspecified as to partial versus complete obstruction]Onset: 08-01-2019 Resolved: 719082-56-0362FtfnhvftLmumrwa and fatigue (20 sources)Physical deconditioning; Translations: [Other malaise]Onset: 12-18-2023 Resolved: 157307-43-2614QcwnkvwcObue disorders (20 sources)Mood disordersOnset: 04-01-2023 Resolved: 498325-90-7000Pgdblbj (20 sources)Onychomycosis; Translations: [Tinea unguium]Onset: 06-14-2023 50-32-0315UnrsllsiZhktxn and vomiting (20 sources)Nausea and vomiting; Translations: [Nausea with vomiting, unspecified]Onset: 03-25-2024 Resolved: 764036-93-1469XoygckjrQzrmvgpgkbv deficiencies (20 sources)Vitamin D deficiency; Translations: [Vitamin D deficiency, unspecified]Onset: 12-31-2022 Resolved: 412031-05-3244VhykqpmQekqzzvrwng deficiencies (20 sources)Nutritional deficiency state; Translations: [Nutritional deficiency, unspecified]Onset: 08-27-2023 Resolved: 445597-38-5591QbtaiaxuQhgck aftercare (20 sources)Post-discharge follow-up; Translations: [Encounter for follow-up examination after completed treatment for conditions other than malignant neoplasm]Onset: 07-22-2023 Resolved: 187327-17-6473WcdwtqwhExysx aftercare (20 sources)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; Translations: [long-term (current) use of anticoagulants]Onset: 08-02-2019 Resolved: 113240-40-5368CjkijvpaRgnpi and ill-defined heart disease (20 sources)Heart disease; Translations: [Heart disease, unspecified]Onset: 06-14-2023 Resolved: 080551-80-3799EaqhcksSzijk and unspecified benign neoplasm (20 sources)Polyp of colon; Translations: [Polyp of colon]Onset: 06-14-2023 95-26-3073QzhdaxnrWnhau bone disease and musculoskeletal deformities (20 sources)Osteopenia; Translations: [Other specified disorders of bone density and structure, right thigh]Onset: 12-30-2023 Resolved: 694469-01-8026JmzmgxqzPuuek circulatory disease (20 sources)History of cerebrovascular disease; Translations: [Personal history of transient ischemic attack (TIA), and cerebral infarction without residual deficits]Onset: 12-31-2022 Resolved: 035600-33-6292JyaxgvvqCgtex connective tissue disease (20 sources)Recurrent falls ; Translations: [Repeated falls]Onset: 08-20-2023 Resolved: 295180-60-8800HyqeziisGllpb connective tissue disease (20 sources)Muscle weakness; Translations: [Muscle weakness (generalized)]Onset: 12-31-2022 Resolved: 248178-25-2557GvuyafjeFgjck connective tissue disease (2 sources)Pain of toe of left foot; Translations: [Pain in left toe(s)] 94-53-1437CjeqoiakUaepa connective tissue disease (2 sources)Pain of toe of right foot; Translations: [Pain in right toe(s)] 75-37-1210InexhlaiRajek connective tissue disease (2 sources)Calcaneal spur of right foot; Translations: [Calcaneal spur, right foot]42-47-2805HiyakxegXyktu ear and sense organ disorders (20 sources)Hearing loss of right ear; Translations: [Impacted cerumen, right ear]Onset: 214550-02-0158XjmtlwdeSjhxf gastrointestinal disorders (20 sources)Colostomy present; Translations: [Encounter for attention to colostomy]Onset: 05-27-2014 Resolved: 355114-23-4158ZzlzysvDnaba gastrointestinal disorders (20 sources)Constipation; Translations: [Constipation, unspecified]Onset: 06-14-2023 Resolved: 272545-87-6385WueegmskNmiwn gastrointestinal disorders (20 sources)History of diverticulitis; Translations: [Personal history of other diseases of the digestive system]Onset: 02-25-2015 Resolved: 870538-18-1827IsubzlguVqpka hereditary and degenerative nervous system conditions (20 sources)Essential tremor; Translations: [Essential tremor]Onset: 03-25-2024 Resolved: 999755-83-8854XsgvcgoRovmz inflammatory condition of skin (20 sources)Intertrigo; Translations: [Erythema intertrigo]Onset: 12-31-2022 Resolved: 474305-18-5662PyqcgwnySycwg injuries and conditions due to external causes (20 sources)Closed injury of head; Translations: [Unspecified injury of head, initial encounter]Onset: 03-25-2024 Resolved: 596177-95-2982HhobwzznPunoy injuries and conditions due to external causes (20 sources)At risk for falls ; Translations: [History of falling]Onset: 147617-49-8819OzjlcoibLrvvy lower respiratory disease (20 sources)Dyspnea; Translations: [Shortness of breath]Onset: 06-14-2023 Resolved: 339942-74-7174WbarxnypEdntb lower respiratory disease (20 sources)Productive cough ; Translations: [Cough with expectoration]Onset: 01-06-2024 Resolved: 802084-09-7031NqfoatibIzcaw lower respiratory disease (20 sources)Hypoxia; Translations: [Hypoxemia]Onset: EpisodicOther lower respiratory disease (1 source)Acute respiratory distress; Translations: [Acute respiratory distress] Onset: 08-82-8109LeozqclcPflcd nervous system disorders (20 sources)Disorder of brain; Translations: [Encephalopathy, unspecified]Onset: 06-14-2023 Resolved: 966511-15-9809UbngwvtSyddo nervous system disorders (20 sources)Cognitive deficit in communication skills; Translations: [Cognitive communication deficit]Onset: 12-31-2022 Resolved: 775533-75-5396EcrihxvCvdgs nervous system disorders (20 sources)Difficulty walking; Translations: [Difficulty in walking, not elsewhere classified]Onset: 08-20-2023 Resolved: 110795-57-8658DpefapfVlyao nervous system disorders (20 sources)Polyneuropathy; Translations: [Polyneuropathy, unspecified]Onset: 08-20-2023 Resolved: 130978-38-0868ZphgrgkMfpgf nervous system disorders (20 sources)Disturbance in speech; Translations: [Unspecified speech disturbances]Onset: 03-25-2024 Resolved: 595613-42-3644ZgfsjmrlYgcaq nervous system disorders (20 sources)Tremor; Translations: [Tremor, unspecified]Onset: 12-31-2022 Resolved: 583943-24-3359NtrfmtdmKbuiz nervous system disorders (20 sources)Incoordination; Translations: [Unspecified lack of coordination] Onset: 12-31-2022 Resolved: 932517-13-7761FqbhtgrpIwkzv non-traumatic joint disorders (20 sources)Hip pain; Translations: [Pain in unspecified hip]Onset: 03-25-2024 Resolved: 659307-14-5974CggewsnvWljwe non-traumatic joint disorders (20 sources)Sinus tarsi syndrome of left ankle; Translations: [Pain in left ankle and joints of left foot]Onset: 932689-24-6619ZpvvjcijMaxql nutritional; endocrine; and metabolic disorders (20 sources)Body mass index 30+ - obesity; Translations: [Body mass index (BMI) 37.0-37.9, adult]Onset: 12-04-2023 Resolved: 002067-50-2318PvklswzFaouh nutritional; endocrine; and metabolic disorders (20 sources)Obesity; Translations: [Obesity, unspecified]Onset: 06-14-2023 Resolved: 165266-96-2970PtztejpKbxujlhxi (except that caused by tuberculosis or sexually transmitted disease) (20 sources)Pneumonia; Translations: [Pneumonia, unspecified organism]Onset: 02-14-2024 Resolved: 123413-51-2231OpywklqyCktuzhqfw heart disease (20 sources)Pulmonary hypertension; Translations: [Pulmonary hypertension, unspecified]Onset: 12-31-2022 Resolved: 612888-75-9388QcbkdsjQhnvimws codes; unclassified (20 sources)Activity of daily living (ADL) alteration; Translations: [Other specified health status]Onset: 03-25-2024 Resolved: 791114-06-8356GorjafnkErxnwzia codes; unclassified (20 sources)Insomnia; Translations: [Insomnia, unspecified]Onset: 06-14-2023 61-54-6097AuxrkcdbSdgzthss codes; unclassified (20 sources)Edema of lower extremity; Translations: [Localized edema]Onset: 043265-44-5417DejgamndOofdmtby codes; unclassified (20 sources)Tobacco user; Translations: [Tobacco use]Onset: 06-14-2023 Resolved: 978944-04-2552UqzocnvhKlsuosjk codes; unclassified (20 sources)Localized edema; Translations: [Localized edema]Onset: 06-19-2023 Resolved: 991778-27-9828FyweyxviPfajpzzain (except in labor) (13 sources)Acute kidney injury due to sepsis; Translations: [Sepsis, unspecified organism]Onset: 08-19-2023 Resolved: 980217-83-8684GfgnodytDitwjoojypy; intervertebral disc disorders; other back problems (20 sources)Chronic low back pain; Translations: [Lumbago with sciatica, left side]Onset: 871101-17-4552MxntxjhxDyffrtugt-sqoutea disorders (20 sources)Smoker; Translations: [Nicotine dependence, unspecified, uncomplicated]Onset: 12-31-2022 Resolved: 595392-76-4682WrdwqlmQgytaccmjfl injury; contusion (20 sources)Contusion of hip; Translations: [Contusion of unspecified hip, initial encounter]Onset: 03-25-2024 Resolved: 266341-86-8129XunzczeeDlsbvtccyeqp (20 sources)Onset: 12-16-2023 Resolved: [id number] (1 source)Other specified cough; Translations: [Other specified cough]Onset: 27-03-8875Kauysfx tract infections (20 sources)Urinary tract infectious disease; Translations: [Urinary tract infection, site not specified]Onset: 01-06-2024 Resolved: [id number] infection (20 sources)Verruca plantaris; Translations: [Plantar wart]Onset: 06-14-2023 [id number] Results Test NameValueInterpretationReference RangeFacilityOffice Visiton 02-23-2025 Follow-up [id number] Gera Perdue 1945 Date Provider Department Center 02/23/2025 [place] Family History Problem Relation Age of Onset Coronary artery disease Mother Accidental Father Coronary artery disease Sister Family Status - Relation Status Age at Mother Father Sister Alive Brother Alive Level of Service:58174 IN OFFICE/OUTPATIENT ESTABLISHED MOD [facility] *Monitor your weights daily, maintain 2L daily fluid allowance. Eat a low sodium diet. *Notify cardiology for weight gain of 2-3lbs in a day or 5# in a week or increased SOB or increased leg swelling.NormalProMedica Fostoria Community HospitalOffice Visiton [phone]-up [id number] Gera Perdue 1945 Date Provider Department Center 02/09/2025 BRADEN CRAWFORD JENNIFER [place] Family History Problem Relation Age of Onset Coronary artery disease Mother Accidental Father Coronary artery disease Sister Family Status - Relation Status Age at Mother Father Sister Alive Brother Alive Level of Service:67370 IN OFFICE/OUTPATIENT ESTABLISHED MOD MDM 30 MIN Reason for Visit and Comments: Coronary Artery Disease [187] Congestive Heart Failure [127] Shortness of Breath [479677]NormalUnMemorial Health System Marietta Memorial HospitalUrine Cultureon [id number] identified Cx Nom (U)ORGANISM: Klebsiella pneumoniae (O:KLEPNE) Bailey Count >100,000 ORGANISM: Enterobacter cloacae complex (O:ENTCLOCPLX) Bailey Count 20,000 Aerobic NATALIA Charge (NMIC56) SUSCEPTIBILITY ORGANISM: O:KLEPNE ANTIBIOTIC INTERPRETATION NATALIA Amikacin S <16 Amoxacillin/K Clavulanate S <8 Ampicillin/Sulbactam S <4 Aztreonam S <4 Cefazolin S <2 Cefepime S <2 Ceftazidime S <1 Ceftazidime/Avibactam S <4 Ceftolozane/Tazobactam S <2 Ceftriaxone S <1 Cefuroxime S <4 Ciprofloxacin S <0.25 Ertapenem S <0.5 Gentamicin S <2 Levofloxacin S <0.5 Meropenem S <1 Meropenem/Vaborbactam S <2 Nitrofurantoin S <32 Piperacillin/Tazobactam S <8 Tetracycline S <4 Tigecycline S <2 Tobramycin S <2 Trimethoprim/Sulfamethoxazole S <0.5 Aerobic NATALIA Charge (NMIC56) SUSCEPTIBILITY ORGANISM: O:ENTCLOCPLX ANTIBIOTIC INTERPRETATION NATALIA Amikacin S <16 Aztreonam IB <4 Cefepime S <2 Ceftazidime IB <1 Ceftriaxone IB <1 Cefuroxime R* 16 Ciprofloxacin S <0.25 Ertapenem S <0.5 Gentamicin S <2 Levofloxacin S <0.5 Meropenem S <1 Meropenem/Vaborbactam S <2 Nitrofurantoin I 64 Piperacillin/Tazobactam IB <8 Tetracycline S <4 Tigecycline S <2 Tobramycin S <2 Trimethoprim/Sulfamethoxazole S <0.5 S = SUSCEPTIBLE I = [...] RESISTANT TO ALL B-LACTAM DRUGS. PERFORMED BY: [place] [id number] PATHOLOGIST [employer] REVIEWER HYUN MCKINNEY M.D.NormalThe Onslow [facility] Hospital Physician GroupComment on above: Performed By: #### LIPASE, CMP, HS TROP, SCAN CBC, MG, NORMA #### [facility] [address] [place] [address] USAXR RIBS 2 VIEWS LEFTon 03-26-1414UO RIBS 2 VIEWS LEFTExam: XR RIBS 2 VIEWS LEFT Reason for exam: Persistent left side mid back pain, post fall Prior comparative studies: None Findings: No definite rib fracture is visualized on the left. Lung and pleural space appear intact on the left. There is platelike opacity in the right midlung and right lower lobe. IMPRESSION: 1. No rib fracture or cardiopulmonary sequela identified. 2. Platelike atelectasis right mid and lower lung. Dictated on: 01/20/2025 9:43 AM This report has been electronically signed and approved by the interpreting radiologist.NormalNot AvailableXR THORACIC SPINE 2 VIEWSon [id number] THORACIC SPINE 2 VIEWSXR THORACIC SPINE 2 VIEWS Reason for exam: Fall a few months ago, persistent left sided mid back pain Views: 2 Findings: The alignment is normal. There is demineralization of the regional skeleton. There is complete collapse of the T7 vertebral body and 20% anterior wedge collapse at T11 involving superior endplate. The ages are unknown. There is no obvious retropulsion of bone into the canal on these images. There is mild kyphosis. 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 The age is of the fractures are uncertain radiographically. Dictated on: 01/21/2025 5:38 PM This report has been electronically signed and approved by the interpreting Radiologist.NormalNot Rcjulcgqt63yd *Please monitor blood pressure daily. Obtain 2 hours after medications and send readings to cardiology prior to patient being discharged to home. Would like to make sure her BP medications don't need adjusted. *Patient needs to have daily weights. Notify cardiology for weight gain of 2-3lb in a day or 5lbs in a week. *Maintain 1500-2000ml daily fluid allowance and a low sodium diet, less than 2500mg. *Please obtain follow-up BMP.[facility] HospitalOffice Visiton [phone]-up [id number] Shelby Perduesreedhar [place] 1945 Provider Department Center 01/07/2025 166-BRADEN MACIAS CARD Alethea Hos No family history on file Level of Service:19045 IN OFFICE/OUTPATIENT ESTABLISHED LOW MDM 20 MIN Reason for Visit and Comments: Hospital Follow-up [832] Coronary Artery Disease [187] Congestive Heart Failure [127][facility] Documentationon [id number] Shelby Perduesreedhar [place] 1945 Provider Department Center 01/04/2025 [facility] No family history on file Reason for Visit and Comments: HF inpatient satisfaction survey sent. [Other][facility]30on [id number]: Pain - Adult Goal: Verbalizes/displays adequate comfort level or baseline comfort level Outcome: Progressing Flowsheets Taken 12/31/2024 0830 Verbalizes/displays adequate comfort level or baseline comfort level: Encourage patient to monitor pain and request assistance Taken 12/31/2024 0800 Verbalizes/displays adequate comfort level or baseline comfort level: Encourage patient to monitor pain and request assistance Assess pain using appropriate pain scale Implement non-pharmacological measures as appropriate and evaluate response Administer analgesics based on type and severity of pain and evaluate response Consider cultural and social influences on pain and pain management Notify Licensed Independent Practitioner if interventions unsuccessful or patient reports new pain Problem: Safety - Adult Goal: Free from fall injury Outcome: Progressing Flowsheets (Taken 12/31/2024829) Free from fall injury: Assess patient frequently for physical needs Problem: Discharge Planning Goal: Discharge to home or other facility with appropriate resources Outcome: Progressing Flowsheets (Taken 12/31/2024829) Discharge to home or other facility with appropriate resources: Identify barriers to discharge with patient and caregiver Problem: Chronic Conditions and Co-morbidities Goal: Patient's chronic conditions and co-morbidity symptoms are monitored and maintained or improved Outcome: Progressing Flowsheets (Taken 12/31/2024 0830) Care Plan - Patient's Chronic Conditions and Co-Morbidity Symptoms are Monitored and Maintained or Improved: Monitor and assess patient's chronic conditions and comorbid symptoms for stability, deterioration, or improvement Problem: RISK FOR DECREASED CARDIAC OUTPUT Goal: Patient will demonstrate adequate cardiac output as evidenced by blood pressure and pulse rate/rhythm within normal parameters for the patient. Outcome: Progressing Problem: IMPAIRED FLUID BALANCE Goal: Patient will demonstrate adequate fluid balance, as evidenced by absence of signs and symptoms of fluid overload or dehydration Outcome: Progressing Problem: ACTIVITY INTOLERANCE Goal: Patient will demonstrate improvement or maintenance of ability to perform daily activities without feeling excessive fatigue. Outcome: Progressing Problem: KNOWLEDGE DEFICIT Goal: Patient will participate in the learning process to identify risk factors of their disease process, including how to prevent worsening of symptoms. Outcome: Progressing Problem: SELF-CARE DEFICIT Goal: Patient will demonstrate management of self-care activities related to disease management Outcome: Progressing Problem: IMPAIRED QUALITY OF LIFE Goal: Patient will achieve stated motivational goal < EDIT> and/or demonstrate maintenance and satisfaction of qualify of life Outcome: Progressing Problem: Fall Risk Goal: LTG-Increase mobility and strength Outcome: Progressing Goal: LTG-No falls Outcome: Progressing Goal: STG-Uses assitive devices properly Outcome: Progressing Goal: STG-Ask for assistance before standing Outcome: Progressing Goal: STG-Allows staff to assist prior to standing and ambulating Outcome: Progressing Goal: STG-Use call light prior to getting out of bed Outcome: Progressing Problem: Pain Goal: LTG-Verbalize decrease in pain Outcome: Progressing Goal: LTG-Demostrate that the pain does not impair ADLs Outcome: Progressing Goal: STG-Pt will verbalize decreased discomfort Outcome: Progressing Problem: Infection Goal: LTG-No signs/symptoms of infection Outcome: Progressing Goal: LTG-Pt free of complications from infection Outcome: Progressing Goal: STG-Will allow for vitals check two times daily Outcome: Progressing Problem: Skin/Tissue Integrity - Adult Goal: Skin integrity remains intact Outcome: Progressing Flowsheets (Taken 12/31/2024 0830) Skin integrity remains intact: Monitor for areas of redness and/or skin breakdown Problem: Musculoskeletal - Adult Goal: Return mobility to safest level of function Recent Flowsheet Documentation Taken 12/31/2024829 by Kimberley Garcia RN Return mobility to safest level of function: Assess patient stability and activity tolerance for standing, transferring and ambulating with or without assistive devices Problem: Gastrointestinal - Adult Goal: Maintains or returns to baseline bowel function Recent Flowsheet Documentation Taken 12/31/2024829 by Kimberley Garcia RN Maintains or returns to baseline bowel function: Assess bowel function Problem: Genitourinary - Adult Goal: Absence of urinary retention Recent Flowsheet Documentation Taken 12/31/2024829 by Kimberley Garcia RN Absence of urinary retention: Assess patient???s ability to void and empty bladder Problem: Metabolic/Fluid and Electrolytes - Adult Goal: Glucose maintained within prescribed range Recent Flowsheet Documentation Taken 12/31/2024829 by Kimberley Jones (more content not included)...NormalUnMemorial Health System Marietta Memorial Hospital30Writer called [employer] to set up Peer to Peer, life insurance underwriter was told by [employer] that [facility] provider just needs to call the number [phone] hit Option 5, and then then [facility] Provider will be connect you to do the P2P. Banker Mason notified Primary team provider of this. Provider is call [employer] now to do P2P.NormalUnMemorial Health System Marietta Memorial HospitalBASIC METABOLIC PANELon [id number] gap [Moles/Vol]7 mmol/LNormal7-20UnMemorial Health System Marietta Memorial HospitalComment on above:Performed By: #### [id number] ####[facility] (BEAKER)[address] [facility], [place] [address]Euftvpi [Mass/Vol]8.8 mg/dLNormal 8.6-10.3UnMemorial Health System Marietta Memorial HospitalComment on above:Performed By: #### [id number] ####[facility] (BEAKER)[address] [facility] [place], [place] [address]Zefabkyw [Moles/Vol]109 mmol/IWjwg81-786UhlurfuydfMemorial Health System Marietta Memorial HospitalComment on above:Performed By: #### [id number] ####[facility] (BEAKER)[address] [place], [place] [address]WL3 [Moles/Vol]26 mmol/GPtvded30-28QdaczsdlajMemorial Health System Marietta Memorial HospitalComment on above:Performed By: #### [id number] ####[facility] ([facility])[address] [place] [address]Pbqqmfcbws [Mass/Vol]1.04 mg/dLNormal 0.60-1.20UnMemorial Health System Marietta Memorial HospitalComment on above:Performed By: #### [id number] ####[facility] ([facility])[address] [place] [address]JEBJQBRYZX FILTRATION RATE ML/MIN/1.73 SQ M.LSISETPLC44.7 mL/min/1.73m*2Low>60.0UnMemorial Health System Marietta Memorial HospitalComment on above:Result Comment: The [facility]???s estimated glomerular filtration rate (eGFR) will no longer include consideration of race in its calculation. The National Kidney Foundation???s eGFR Task Force developed new recommendations for the estimation of the glomerular filtration rate in the [place] They recommend immediate implementation of the new equation refit without the race variable in all laboratories because the calculation does not include race. In addition to not including race in the calculation and reporting, it included diversity in its development, and has acceptable performance characteristics and potential consequences that do not disproportionately affect anyone group of individuals. Performed By: #### [id number] ####[facility] ([facility])[address] [place] [address]Lteinmw [Mass/Vol]92 mg/fNZtrqat13-925OkhcjaadfhMemorial Health System Marietta Memorial HospitalComment on above:Performed By: #### [id number] ####[facility] ([facility])[address] [place] [address]Rxqydmgqt [Moles/Vol]4.3 mmol/LNormal 3.5-5.1UnMemorial Health System Marietta Memorial HospitalComment on above:Performed By: #### [id number] ####[facility] ([facility])[address] [place] [address]Ahvzwx [Moles/Vol]138 mmol/ZOrpzwc649-651GzciunlvpgMemorial Health System Marietta Memorial HospitalComment on above:Performed By: #### [id number] ####[facility] (BEAKER)[address] [place], [place] [address]Cgaj nitrogen [Mass/Vol]20 mg/dLNormal7-[facility] Community HospitalComment on above:Performed By: #### [id number] ####[facility] (BERACHEL)[address] [place] [address]YMHE NITROGEN/CREATININE (MASS RATIO) IN SER/PLAS19.2NormalUnMemorial Health System Marietta Memorial HospitalComment on above: Performed By: #### [id number] ####[facility] (BEAKER)[address] [place] [address]CNNIKJJFix [id number] report to [facility] SN[facility]; spoke with RN over phone and gave report with callback number provided if questions arise once pt arrives.Will cont to attempt to reach daughter via phone. Reviewed paperwork with pt; copy given to pt.Normal [facility]30on [id number] patient is Moderately Stable - Low risk of patient condition declining or worsening The patient's goals for the shift include Comfort, rest The clinical goals for the shift include Stable vitals, comfortNormalUniversHarrison Community Hospital30Daily Case Management Update Multidisciplinary rounds have been completed. Barriers to Discharge: Medically ready for discharge. Await precert to spring (started yesterday). Diet: Dietary Orders (From admission, onward) Start Ordered 12/25/24 1439 Special Kitchen Request Once Comments: Chicken salad sandwich, peaches, grape juice 12/25/24 1439 12/25/24 0859 Special Kitchen Request Once Comments: Cream of wheat, 2 sugars, butter, wheat toast, grapes, coffee, cream, 2 sugar 12/25/24 0859 12/23/24 0800 Special Kitchen Request Once Comments: Please send up pancakes, grapes, and grape juice for breakfast. Thanks! 12/23/24 0800 12/20/24 0738 Special Kitchen Request Once Comments: Liberian toast, scrambled eggs, grits, peaches, orange juice, 12/20/24 0738 12/20/24 0713 Regular Diet Heart Healthy/HTN, CABG,Stroke, (2gNA, low fat, low cholesterol); 240ml/tray Diet effective now Question Answer Comment Room Service? Yes Fat restriction: Heart Healthy/HTN, CABG,Stroke, (2gNA, low fat, low cholesterol) Fluid restriction total / 24h: 240ml/tray 12/20/24 0713 12/19/24 1638 Special Kitchen Request Once Comments: Please send patient two cups of sherbet 12/19/24 1637 12/19/24 1041 Special Kitchen Request Once Comments: For lunch please send patient cheeseburger with onion, lettuce, tomato. Liberian fries. Grape juice. 12/19/24 1041 Physician Expected Discharge Date: 12/30/2024 Discharge Delays: Waiting on discharge facility authorization [108] Awaiting accepting facility [113] PT Six Click Score: 16 OT Six Click Score: 18 PT Recommendations: penitentiary facility placement OT Recommendations: penitentiary facility placement New Consults: Therapy Orders (From admission, onward) Start Ordered 12/18/24 0857 PT eval and treat Until therapy completed Question: Reason for PT? Answer: weakness 12/18/24 0857 12/18/24 0857 OT eval and treat Until therapy completed Question: Reason for OT? Answer: weakness 12/18/24 0857NormalUniTriHealth McCullough-Hyde Memorial Hospital30The patient is Moderately Stable - Low risk of patient condition declining or worsening The patient's goals for the shift include comfort, rest The clinical goals for the shift include stable vitals, comfort, and get discharge to snf Over the shift, the patient did make progress toward the following goals. Problem: Pain - Adult Goal: Verbalizes/displays adequate comfort level or baseline comfort level Outcome: Progressing Problem: Safety - Adult Goal: Free from fall injury Outcome: Progressing Problem: Discharge Planning Goal: Discharge to home or other facility with appropriate resources Outcome: Progressing Problem: IMPAIRED FLUID BALANCE Goal: Patient will demonstrate adequate fluid balance, as evidenced by absence of signs and symptoms of fluid overload or dehydration Outcome: Progressing Problem: ACTIVITY INTOLERANCE Goal: Patient will demonstrate improvement or maintenance of ability to perform daily activities without feeling excessive fatigue. Outcome: ProgressingNormalUniTriHealth McCullough-Hyde Memorial HospitalCBCon 12-30-2024 Erythrocyte distribution width (RBC) [Ratio]17.5 %High11.5-15.0UnMemorial Health System Marietta Memorial HospitalComment on above:Performed By: #### [id number] ####[facility] ([facility])[address] [place], [place] [address]GVFCWIZMAUI MEAN CORPUSCULAR HEMOGLOBIN CONCENTRATION (G/DL) BY UEKZYUBXX27.6 g/dLLow32.0-35.0 [facility] HospitalComment on above:Performed By: #### [id number] ####[facility] ([facility])[address] [place] [address]Woycouxhuc (Bld) [Volume fraction]34.5 %Low36.0-48.0UnMemorial Health System Marietta Memorial HospitalComment on above:Performed By: #### [id number] ####[facility] ([facility])[address] [place] [address]Jtqcenfsni (Bld) [Mass/Vol]10.2 g/dLLow12.0-15.0UnMemorial Health System Marietta Memorial HospitalComment on above:Performed By: #### [id number] ####[facility] ([facility])[address] [place] [address]MMZ (RBC) [Entitic mass] 25.4 pgLow27.0-33.0UnMemorial Health System [facility]etta Memorial HospitalComment on above:Performed By: #### [id number] ####[facility] ([facility])[address] [place] [address] MCV (RBC) [Entitic vol]85.8 iFLjlzdx77.0-98.0UnMemorial [facility] Comment on above:Performed By: #### [id number] ####[facility] ([facility])[address] [place] [address]IYUMTXHTH (10*3/UL) IN BLOOD AUTOMATED [id number] 10*3/oCVjjfvh275-279KciewwqafrMemorial Health System Marietta Memorial HospitalComment on above: Performed By: #### [id number] ####[facility] ([facility])[address] [place] [address]BDQ (Bld) [#/Vol]4.02 10*6/uLNormal3.80-5.00UnMemorial Health System Mari[facility] Memorial HospitalComment on above:Performed By: #### [id number] ####[facility] (BEAKER)[address] [place] [address]RSF (Bld) [#/Vol]10.46 10*3/uLNormal4.00-10.60UnMemorial Health System Marietta Memorial HospitalComment on above: Performed By: #### [id number] ####[facility] (BEAKER)[address] [place] [address]yk 06-24-733952Gak patient is Moderately Stable - Low risk of patient condition declining or worsening The patient's goals for the shift include comfort, rest The clinical goals for the shift include stable vitals, comfortNormalUniversHarrison Community Hospital30Daily Case Management Update Multidisciplinary rounds have been completed. Barriers to Discharge: Await precert to spring (started yesterday). Diet: Dietary Orders (From admission, onward) Start Ordered 12/25/24 1439 Special Kitchen Request Once Comments: Chicken salad sandwich, peaches, grape juice 12/25/24 1439 12/25/24 0859 Special Kitchen Request Once Comments: Cream of wheat, 2 sugars, butter, wheat toast, grapes, coffee, cream, 2 sugar 12/25/24 0859 12/23/24 0800 Special Kitchen Request Once Comments: Please send up pancakes, grapes, and grape juice for breakfast. Thanks! 12/23/24 0800 12/20/24 0738 Special Kitchen Request Once Comments: Liberian toast, scrambled eggs, grits, peaches, orange juice, 12/20/24 0738 12/20/24 0713 Regular Diet Heart Healthy/HTN, CABG,Stroke, (2gNA, low fat, low cholesterol); 240ml/tray Diet effective now Question Answer Comment Room Service? Yes Fat restriction: Heart Healthy/HTN, CABG,Stroke, (2gNA, low fat, low cholesterol) Fluid restriction total / 24h: 240ml/tray 12/20/24 0713 12/19/24 1638 Special Kitchen Request Once Comments: Please send patient two cups of sherbet 12/19/24 1637 12/19/24 1041 Special Kitchen Request Once Comments: For lunch please send patient cheeseburger with onion, lettuce, tomato. Liberian fries. Grape juice. 12/19/24 1041 Physician Expected Discharge Date: 12/29/2024 Discharge Delays: Waiting on discharge facility authorization [108] Awaiting accepting facility [113] PT Six Click Score: 15 OT Six Click Score: 18 PT Recommendations: penitentiary facility placement OT Recommendations: penitentiary facility placement New Consults: Therapy Orders (From admission, onward) Start Ordered 12/18/24 0857 PT eval and treat Until therapy completed Question: Reason for PT? Answer: weakness 12/18/24 0857 12/18/24 0857 OT eval and treat Until therapy completed Question: Reason for OT? Answer: weakness 12/18/24 0857NoPremier Health [facility]30The patient is Moderately Stable - Low risk of patient condition declining or worsening The patient's goals for the shift include improve mobility The clinical goals for the shift include VSS Over the shift, the patient did not make progress toward the following goals. Barriers to progression include. Recommendations to address these barriers include .[facility]30on [id number] patient is Moderately Stable - Low risk of patient condition declining or worsening The patient's goals for the shift include comfort The clinical goals for the shift include vssNormCleveland Clinic Luther[facility]30Daily Case Management Update Multidisciplinary rounds have been completed. Barriers to Discharge: Patient is Medically ready, Per SW note, [facility] is accepting, Precert started today, and is pending. Diet: Dietary Orders (From admission, onward) Start Ordered 12/25/24 1439 Special Kitchen Request Once Comments: Chicken salad sandwich, peaches, grape juice 12/25/24 1439 12/25/24 0859 Special Kitchen Request Once Comments: Cream of wheat, 2 sugars, butter, wheat toast, grapes, coffee, cream, 2 sugar 12/25/24 0859 12/23/24 0800 Special Kitchen Request Once Comments: Please send up pancakes, grapes, and grape juice for breakfast. Thanks! 12/23/24 0800 12/20/24 0738 Special Kitchen Request Once Comments: Liberian toast, scrambled eggs, grits, peaches, orange juice, 12/20/24 0738 12/20/24 0713 Regular Diet Heart Healthy/HTN, CABG,Stroke, (2gNA, low fat, low cholesterol); 240ml/tray Diet effective now Question Answer Comment Room Service? Yes Fat restriction: Heart Healthy/HTN, CABG,Stroke, (2gNA, low fat, low cholesterol) Fluid restriction total / 24h: 240ml/tray 12/20/24 0713 12/19/24 1638 Special Kitchen Request Once Comments: Please send patient two cups of sherbet 12/19/24 1637 12/19/24 1041 Special Kitchen Request Once Comments: For lunch please send patient cheeseburger with onion, lettuce, tomato. Liberian fries. Grape juice. 12/19/24 1041 Physician Expected Discharge Date: 12/20/2024 Discharge Delays: Waiting on discharge facility authorization [108] PT Six Click Score: 15 OT Six Click Score: 18 PT Recommendations: penitentiary facility placement OT Recommendations: penitentiary facility placement New Consults: Therapy Orders (From admission, onward) Start Ordered 12/18/24 0857 PT eval and treat Until therapy completed Question: Reason for PT? Answer: weakness 12/18/24 0857 12/18/24 0857 OT eval and treat Until therapy completed Question: Reason for OT? Answer: weakness 12/18/24 0857NormalUnivers[facility]30The patient is Moderately Stable - Low risk of patient condition declining or worsening The patient's goals for the shift include comfort rest The clinical goals for the shift include VSS Over the shift, the patient did not make progress toward the following goals. Barriers to progression include . Recommendations to address these barriers include .NormalUnMemorial Health System Marietta Memorial HospitalBASIC METABOLIC PANELon 05-51-3550Nbivc gap [Moles/Vol]10 mmol/LNormal7-20UnMemorial Health System Marietta Memorial HospitalComment on above:Performed By: #### [id number] ####[facility] ([facility]ER)[address] [place] [address]Kvdsxcb [Mass/Vol]9.2 mg/dLNormal 8.6-10.3UnMemorial Health System Marietta Memorial HospitalComment on above:Performed By: #### [id number] ####[facility] (BEAKER)[address] [place] [address]Cwutfzty [Moles/Vol]108 mmol/BRmns61-438XfyeuaigrbMemorial Health System Marietta Memorial HospitalComment on above:Performed By: #### [id number] ####[facility] ([facility])[address] [place] [address]MY2 [Moles/Vol]25 mmol/WFucigv78-41TtjtsnkcusMemorial Health System Marietta Memorial HospitalComment on above:Performed By: #### [id number] ####[facility] ([facility])[address] [place] [address]Uzrefycwqn [Mass/Vol]1.12 mg/dLNormal 0.60-1.20UnMemorial Health System Marietta Memorial HospitalComment on above:Performed By: #### [id number] ####[facility] ([facility])[address] [place] [address]MARNJDFZVM FILTRATION RATE ML/MIN/1.73 SQ M.GCVKKNKON22.0 mL/min/1.73m*2Low>60.0UnMemorial Health System Marietta Memorial HospitalComment on above:Result Comment: The [facility]???s estimated glomerular filtration rate (eGFR) will no longer include consideration of race in its calculation. The National Kidney Foundation???s eGFR Task Force developed new recommendations for the estimation of the glomerular filtration rate in the [place] They recommend immediate implementation of the new equation refit without the race variable in all laboratories because the calculation does not include race. In addition to not including race in the calculation and reporting, it included diversity in its development, and has acceptable performance characteristics and potential consequences that do not disproportionately affect anyone group of individuals. Performed By: #### [id number] ####[facility] ([facility])[address] [place] [address]Ofwztom [Mass/Vol]91 mg/iXUhdrjc77-362CtglmoxrjcMemorial Health System Marietta Memorial HospitalComment on above:Performed By: #### [id number] ####[facility] ([facility])[address] [place] [address]Qrvuwggev [Moles/Vol]4.3 mmol/LNormal 3.5-5.1UnMemorial Health System Marietta Memorial HospitalComment on above:Performed By: #### [id number] ####[facility] ([facility] [place], [place] [address]Xjxujb [Moles/Vol]139 mmol/GWkfvwf582-354BuvclecpqvMemorial Health System Marietta Memorial HospitalComment on above:Performed By: #### [id number] ####[facility] ([facility])[address] [place], [place] [address]Cnkb nitrogen [Mass/Vol]34 mg/dLHigh7-25UnMemorial Health System Marietta Memorial HospitalComment on above:Performed By: #### [id number] ####[facility] ([facility])[address] [place], [place] [address]PAWL NITROGEN/CREATININE (MASS RATIO) IN SER/PLAS30.4NormalUniversHarrison Community HospitalComment on above: Performed By: #### [id number] ####[facility] ([facility])[address] [place], [place] [address]RGEjt 13-52-7053Eamiwiefioo distribution width (RBC) [Ratio]17.7 %High 11.5-15.0UnMemorial Health System Marietta Memorial HospitalComment on above:Performed By: #### [id number] ####[facility] ([facility])[address] [place] [address] ERYTHROCYTE MEAN CORPUSCULAR HEMOGLOBIN CONCENTRATION (G/DL) BY VTXRWYGRA73.9 g/dLLow32.0-35.0UnMemorial Health System Marietta Memorial HospitalComment on above:Performed By: #### [id number] ####[facility] ([facility])[address] [place] [address] Hematocrit (Bld) [Volume fraction]35.4 %Low36.0-48.0UnMemorial Health System Marietta Memorial HospitalComment on above:Performed By: #### [id number] ####[facility] ([facility])[address] [place], [place] [address]Hmxczffvjz (Bld) [Mass/Vol]10.6 g/dL Low12.0-15.0UnMemorial Health System Marietta Memorial HospitalComment on above:Performed By: #### [id number] ####[facility] (BEAKER)[address] [place] [address]ZOC (RBC) [Entitic mass]25.7 pgLow27.0-33.0UnMemorial Health System [facility] Hospital Comment on above:Performed By: #### [id number] ####[facility] ([facility])[address] [place] [address]AEU (RBC) [Entitic vol]85.7 jCRbrskn99.0-98.0 [facility] HospitalComment on above:Performed By: #### [id number] ####[facility] ([facility])[address] [place] [address]STWJFKGYB (10*3/UL) IN BLOOD AUTOMATED [id number] 10*3/mKHyksyb720-717AiescisoxbMemorial Health System Marietta Memorial HospitalComment on above:Performed By: #### [id number] ####[facility] ([facility])[address] [place] [address]DHA (Bld) [#/Vol]4.13 10*6/uLNormal 3.80-5.00UnMemorial Health System Marietta Memorial HospitalComment on above:Performed By: #### [id number] ####[facility] ([facility])[address] [place] [address]FUI (Bld) [#/Vol]13.84 10*3/uLHigh4.00-10.60UnMemorial Health System Marietta Memorial HospitalComment on above:Performed By: #### [id number] ####[facility] ([facility])[address] [place] [address]ag [id number] patient is Moderately Stable - Low risk of patient condition declining or worsening The patient's goals for the shift include comfort The clinical goals for the shift include stable vsNormalUniversHarrison Community Hospital30The patient is Moderately Stable - Low risk of patient condition declining or worsening The patient's goals for the shift include comfort The clinical goals for the shift include stable vs Problem: Pain - Adult Goal: Verbalizes/displays adequate comfort level or baseline comfort level Outcome: Progressing Flowsheets (Taken 12/27/2024 0800) Verbalizes/displays adequate comfort level or baseline comfort level: Encourage patient to monitor pain and request assistance Assess pain using appropriate pain scale Notify Licensed Independent Practitioner if interventions unsuccessful or patient reports new pain Administer analgesics based on type and severity of pain and evaluate response Consider cultural and social influences on pain and pain management Implement non-pharmacological measures as appropriate and evaluate response Problem: Safety - Adult Goal: Free from fall injury Outcome: Progressing Flowsheets (Taken 12/27/2024799) Free from fall injury: Assess patient frequently for physical needs Identify cognitive and physical deficits and behaviors that affect risk of falls Educate patient/family on patient safety, including physical limitations Instruct patient to call for assistance with activity based on assessment Modify environment to reduce risk of injury [place] fall precautions as indicated by assessment Consider OT/PT consult to assist with strengthening/mobility Problem: Discharge Planning Goal: Discharge to home or other facility with appropriate resources Outcome: Progressing Flowsheets (Taken 12/27/2024799) Discharge to home or other facility with appropriate resources: Arrange for needed discharge resources and transportation as appropriate Identify barriers to discharge with patient and caregiver Identify discharge learning needs (meds, wound care, etc) Arrange for interpreters to assist at discharge as needed Refer to discharge planning if patient needs post-hospital services based on physician order or complex needs related to functional status, cognitive ability or social support system Problem: Chronic Conditions and Co-morbidities Goal: Patient's chronic conditions and co-morbidity symptoms are monitored and maintained or improved Outcome: Progressing Flowsheets (Taken 12/27/2024799) Care Plan - Patient's Chronic Conditions and Co-Morbidity Symptoms are Monitored and Maintained or Improved: Monitor and assess patient's chronic conditions and comorbid symptoms for stability, deterioration, or improvement Problem: RISK FOR DECREASED CARDIAC OUTPUT Goal: Patient will demonstrate adequate cardiac output as evidenced by blood pressure and pulse rate/rhythm within normal parameters for the patient. Outcome: ProgressingNormalUniversHarrison Community HospitalBASIC METABOLIC PANELon 09-46-5287Opsnl gap [Moles/Vol]10 mmol/LNormal7-20UnMemorial Health System Marietta Memorial HospitalComment on above:Performed By: #### [id number] #### [facility] (BEAKER) [address] [place], [place] [address]Efkekvc [Mass/Vol]9.1 mg/dLNormal8.6-10.3UnMemorial Health System Marietta Memorial HospitalComment on above:Performed By: #### [id number] #### [facility] ([facility]) [address] [place], [place] [address]Rklpgixe [Moles/Vol]109 mmol/DWlcl66-153ZmzkmszzwoMemorial Health System Marietta Memorial HospitalComment on above:Performed By: #### [id number] #### [facility] ([facility]) [address] [place] [place] [address]VL4 [Moles/Vol]25 mmol/APxcnyv49-81JdukfvgvnzMemorial Health System Marietta Memorial HospitalComment on above:Performed By: #### [id number] #### [facility] ([facility]) [address] [place], [place] [address]Brirzmwyko [Mass/Vol]1.47 mg/dLHigh0.60-1.20UnMemorial Health System Marietta Memorial HospitalComment on above:Performed By: #### [id number] #### [facility] ([facility]) [address] [place], [place] [address]BXVXDYDAOM FILTRATION RATE ML/MIN/1.73 SQ M.YBDLEWZAL56.1 mL/min/1.73m*2Low>60.0UnMemorial Health System Marietta Memorial HospitalComment on above:Result Comment: The [facility]???s estimated glomerular filtration rate (eGFR) will no longer include consideration of race in its calculation. The National Kidney Foundation???s eGFR Task Force developed new recommendations for the estimation of the glomerular filtration rate in the [place] They recommend immediate implementation of the new equation refit without the race variable in all laboratories because the calculation does not include race. In addition to not including race in the calculation and reporting, it included diversity in its development, and has acceptable performance characteristics and potential consequences that do not disproportionately affect anyone group of individuals.Performed By: #### [id number] #### [facility] ([facility]) [address] [place] [place], [place] [address]Frwpiiq [Mass/Vol]97 mg/pKUvvuft96-161BwmhfkcszrMemorial Health System Marietta Memorial HospitalComment on above:Performed By: #### [id number] #### [facility] ([facility]) [address] [place] [address]Tjdglhzhc [Moles/Vol]3.9 mmol/LNormal3.5-5.1UnMemorial Health System [facility] Memorial HospitalComment on above:Performed By: #### [id number] #### [facility] ([facility]) [address] [place] [address]Vvgark [Moles/Vol]140 mmol/QBlltdz936-916ZpllndjcxcMemorial Health System Marietta Memorial HospitalComment on above:Performed By: #### [id number] #### [facility] ([facility]) [address] [place] [address]Ntyd nitrogen [Mass/Vol]57 mg/dLHigh7-25UnMemorial Health System [facility] Memorial HospitalComment on above:Performed By: #### [id number] #### [facility] ([facility]) [address] [place] [address]TOCP NITROGEN/CREATININE (MASS RATIO) IN SER/PLAS38.8Normal [facility] HospitalComment on above:Performed By: #### [id number] #### [facility] ([facility]) [address] [place] [address]ZKVou 86-61-3194Vvayyketiyx distribution width (RBC) [Ratio]18.0 %High11.5-15.0UnMemorial Health System Marietta Memorial HospitalComment on above:Performed By: #### [id number] ####[facility] ([facility])[address] [address] ERYTHROCYTE MEAN CORPUSCULAR HEMOGLOBIN CONCENTRATION (G/DL) BY IKBRWSFRZ08.0 g/dLLow32.0-35.0UnMemorial Health System [facility] Memorial HospitalComment on above:Performed By: #### [id number] ####[facility] ([facility])[address] [place] [address] Hematocrit (Bld) [Volume fraction]36.3 %Klqjfr76.0-48.0UnMemorial Health System Marietta Memorial HospitalComment on above:Performed By: #### [id number] ####[facility] ([facility])[address] [place], [place] [address]Wsamjrtmvy (Bld) [Mass/Vol]10.9 g/dL Low12.0-15.0UnMemorial Health System [facility]etta Memorial HospitalComment on above:Performed By: #### [id number] ####[facility] ([facility])[address] [place] [address]GNG (RBC) [Entitic mass]25.8 pgLow27.0-33.0UnMem[facility] Comment on above:Performed By: #### [id number] ####[facility] ([facility])[address] [place] [address]RQB (RBC) [Entitic vol]85.8 zREssmff09.0-98.0 [facility] HospitalComment on above:Performed By: #### [id number] ####[facility] ([facility])[address] [place] [address]XOLMIQWOQ (10*3/UL) IN BLOOD AUTOMATED GQKJG090 10*3/xZIirtdj233-818RgbuxowwefMemorial Health System Marietta Memorial HospitalComment on above:Performed By: #### [id number] ####[facility] ([facility])[address] [place] [address]CDL (Bld) [#/Vol]4.23 10*6/uLNormal 3.80-5.00UnMemorial Health System [facility] Memorial HospitalComment on above:Performed By: #### [id number] ####[facility] ([facility])[address] [place] [address]EMC (Bld) [#/Vol]14.80 10*3/uLHigh4.00-10.60UnMemorial Health System [facility] Memorial HospitalComment on above:Performed By: #### [id number] ####[facility] ([facility])[address] [place] [address]96jz [id number]: Pain - Adult Goal: Verbalizes/displays adequate comfort level or baseline comfort level Outcome: Progressing Flowsheets (Taken 12/26/20242028) Verbalizes/displays adequate comfort level or baseline comfort level: Encourage patient to monitor pain and request assistance Assess pain using appropriate pain scale Administer analgesics based on type and severity of pain and evaluate response Implement non-pharmacological measures as appropriate and evaluate response Consider cultural and social influences on pain and pain management Notify Licensed Independent Practitioner if interventions unsuccessful or patient reports new pain Problem: Safety - Adult Goal: Free from fall injury Outcome: Progressing Problem: Discharge Planning Goal: Discharge to home or other facility with appropriate resources Outcome: Progressing Flowsheets (Taken 12/26/20242028) Discharge to home or other facility with appropriate resources: Identify barriers to discharge with patient and caregiver Arrange for needed discharge resources and transportation as appropriate Identify discharge learning needs (meds, wound care, etc) Problem: Chronic Conditions and Co-morbidities Goal: Patient's chronic conditions and co-morbidity symptoms are monitored and maintained or improved Outcome: Progressing Problem: RISK FOR DECREASED CARDIAC OUTPUT Goal: Patient will demonstrate adequate cardiac output as evidenced by blood pressure and pulse rate/rhythm within normal parameters for the patient. Outcome: Progressing Problem: IMPAIRED FLUID BALANCE Goal: Patient will demonstrate adequate fluid balance, as evidenced by absence of signs and symptoms of fluid overload or dehydration Outcome: Progressing Problem: ACTIVITY INTOLERANCE Goal: Patient will demonstrate improvement or maintenance of ability to perform daily activities without feeling excessive fatigue. Outcome: Progressing Problem: KNOWLEDGE DEFICIT Goal: Patient will participate in the learning process to identify risk factors of their disease process, including how to prevent worsening of symptoms. Outcome: Progressing Problem: SELF-CARE DEFICIT Goal: Patient will demonstrate management of self-care activities related to disease management Outcome: Progressing Problem: IMPAIRED QUALITY OF LIFE Goal: Patient will achieve stated motivational goal < EDIT> and/or demonstrate maintenance and satisfaction of qualify of life Outcome: Progressing Problem: Fall Risk Goal: LTG-Increase mobility and strength Outcome: Progressing Goal: LTG-No falls Outcome: Progressing Goal: STG-Uses assitive devices properly Outcome: Progressing Goal: STG-Ask for assistance before standing Outcome: Progressing Goal: STG-Allows staff to assist prior to standing and ambulating Outcome: Progressing Goal: STG-Use call light prior to getting out of bed Outcome: Progressing Problem: Pain Goal: LTG-Verbalize decrease in pain Outcome: Progressing Goal: LTG-Demostrate that the pain does not impair ADLs Outcome: Progressing Goal: STG-Pt will verbalize decreased discomfort Outcome: Progressing Problem: Infection Goal: LTG-No signs/symptoms of infection Outcome: Progressing Goal: LTG-Pt free of complications from infection Outcome: Progressing Goal: STG-Will allow for vitals check two times daily Outcome: Progressing The patient is Moderately Unstable - Medium risk of patient condition declining or worsening The patient's goals for the shift include comfort The clinical goals for the shift include Stable VS Over the shift, the patient did make progress toward the following goals. Barriers to progression include . Recommendations to address these barriers include .[facility]30The patient is Moderately Stable - Low risk of patient condition declining or worsening The patient's goals for the shift include comfort The clinical goals for the shift include stable vs Problem: Pain - Adult Goal: Verbalizes/displays adequate comfort level or baseline comfort level Outcome: Progressing Flowsheets (Taken 12/26/2024799) Verbalizes/displays adequate comfort level or baseline comfort level: Encourage patient to monitor pain and request assistance Administer analgesics based on type and severity of pain and evaluate response Implement non-pharmacological measures as appropriate and evaluate response Notify Licensed Independent Practitioner if interventions unsuccessful or patient reports new pain Consider cultural and social influences on pain and pain management Assess pain using appropriate pain scale Problem: Safety - Adult Goal: Free from fall injury Outcome: Progressing Flowsheets (Taken 12/26/2024799) Free from fall injury: Assess patient frequently for physical needs Identify cognitive and physical deficits and behaviors that affect risk of falls [place] fall precautions as indicated by assessment Educate patient/family on patient safety, including physical limitations Instruct patient to call for assistance with activity based on assessment Modify environment to reduce risk of injury Consider OT/PT consult to assist with strengthening/mobility Problem: Discharge Planning Goal: Discharge to home or other facility with appropriate resources Outcome: Progressing Flowsheets (Taken 12/26/2024799) Discharge to home or other facility with appropriate resources: Identify barriers to discharge with patient and caregiver Arrange for needed discharge resources and transportation as appropriate Identify discharge learning needs (meds, wound care, etc) Arrange for interpreters to assist at discharge as needed Refer to discharge planning if patient needs post-hospital services based on physician order or complex needs related to functional status, cognitive ability or social support system Problem: Chronic Conditions and Co-morbidities Goal: Patient's chronic conditions and co-morbidity symptoms are monitored and maintained or improved Outcome: Progressing Flowsheets (Taken 12/26/2024799) Care Plan - Patient's Chronic Conditions and Co-Morbidity Symptoms are Monitored and Maintained or Improved: Monitor and assess patient's chronic conditions and comorbid symptoms for stability, deterioration, or improvement Collaborate with multidisciplinary team to address chronic and comorbid conditions and prevent exacerbation or deterioration Update acute care plan with appropriate goals if chronic or comorbid symptoms are exacerbated and prevent overall improvement and discharge Problem: RISK FOR DECREASED CARDIAC OUTPUT Goal: Patient will demonstrate adequate cardiac output as evidenced by blood pressure and pulse rate/rhythm within normal parameters for the patient. Outcome: ProgressingNormalUniTriHealth [facility]ull[facility]30Daily Case Management Update Multidisciplinary rounds have been completed. Barriers to Discharge: Pending clinical course and improvement in clinical condition. Fluid bolus ordered today, Creatinine 2.58. ID: WBC is trending down (20.94), continue to monitor off atb. Waiting for spring to confirm if they will do an onsite on Saturday. Diet: Dietary Orders (From admission, onward) Start Ordered 12/25/24 1439 Special Kitchen Request Once Comments: Chicken salad sandwich, peaches, grape juice 12/25/24 1439 12/25/24 0859 Special Kitchen Request Once Comments: Cream of wheat, 2 sugars, butter, wheat toast, grapes, coffee, cream, 2 sugar 12/25/24 0859 12/23/24 0800 Special Kitchen Request Once Comments: Please send up pancakes, grapes, and grape juice for breakfast. Thanks! 12/23/24 0800 12/20/24 0738 Special Kitchen Request Once Comments: Liberian toast, scrambled eggs, grits, peaches, orange juice, 12/20/24 0738 12/20/24 0713 Regular Diet Heart Healthy/HTN, CABG,Stroke, (2gNA, low fat, low cholesterol); 240ml/tray Diet effective now Question Answer Comment Room Service? Yes Fat restriction: Heart Healthy/HTN, CABG,Stroke, (2gNA, low fat, low cholesterol) Fluid restriction total / 24h: 240ml/tray 12/20/24 0713 12/19/24 1638 Special Kitchen Request Once Comments: Please send patient two cups of sherbet 12/19/24 1637 12/19/24 1041 Special Kitchen Request Once Comments: For lunch please send patient cheeseburger with onion, lettuce, tomato. Liberian fries. Grape juice. 12/19/24 1041 Physician Expected Discharge Date: 12/20/2024 Discharge Delays: PT Six Click Score: 15 OT Six Click Score: 18 PT Recommendations: penitentiary facility placement OT Recommendations: penitentiary facility placement New Consults: Therapy Orders (From admission, onward) Start Ordered 12/18/24 0857 PT eval and treat Until therapy completed Question: Reason for PT? Answer: weakness 12/18/24 0857 12/18/24 0857 OT eval and treat Until therapy completed Question: Reason for OT? Answer: weakness 12/18/24 0857NormalUniversHarrison Community HospitalBASIC METABOLIC PANELon 80-34-6266Cmwdh gap [Moles/Vol]13 mmol/LNormal7-20UnMemorial Health System Marietta Memorial HospitalComment on above:Performed By: #### [id number] ####[facility] ([facility])[address] [place], [place] [address]Lxohcdv [Mass/Vol]9.1 mg/dLNormal 8.6-10.3UnMemorial Health System Marietta Memorial HospitalComment on above:Performed By: #### [id number] ####[facility] ([facility])[address] [place], [place] [address]Paudiawf [Moles/Vol]105 mmol/GUtxlox08-218HfnnbirrizMemorial Health System Marietta Memorial HospitalComment on above:Performed By: #### [id number] ####[facility] ([facility])[address] [place], [place] [address]WB9 [Moles/Vol]22 mmol/NSkcjkw40-80QnvtoluiwbMemorial Health System Marietta Memorial HospitalComment on above:Performed By: #### [id number] ####[facility] ([facility])[address] [place], [place] [address]Rurdsbyqrl [Mass/Vol]2.58 mg/dLHigh 0.60-1.20UnMemorial Health System Marietta Memorial HospitalComment on above:Performed By: #### [id number] ####[facility] ([facility])[address], [place] [address]QPKQFMGEIK FILTRATION RATE ML/MIN/1.73 SQ M.GIZWZVKGI12.4 mL/min/1.73m*2Low>60.0UnMemorial Health System Marietta Memorial HospitalComment on above:Result Comment: The [facility]???s estimated glomerular filtration rate (eGFR) will no longer include consideration of race in its calculation. The National Kidney Foundation???s eGFR Task Force developed new recommendations for the estimation of the glomerular filtration rate in the [place] They recommend immediate implementation of the new equation refit without the race variable in all laboratories because the calculation does not include race. In addition to not including race in the calculation and reporting, it included diversity in its development, and has acceptable performance characteristics and potential consequences that do not disproportionately affect anyone group of individuals. Performed By: #### [id number] ####[facility] ([facility])[address] [place], [place] [address]Hmrilld [Mass/Vol]87 mg/fLEganog63-738OyltnwyedeMemorial Health System Marietta Memorial HospitalComment on above:Performed By: #### [id number] ####[facility] ([facility])[address] [place], [place] [address]Vwrllfekl [Moles/Vol]3.7 mmol/LNormal 3.5-5.1UnMemorial Health System Marietta Memorial HospitalComment on above:Performed By: #### [id number] ####[facility] ([facility])[address] [place], [place] [address]Krjjms [Moles/Vol]136 mmol/ZMzqugp193-688ZgnkztjdmvMemorial Health System Marietta Memorial HospitalComment on above:Performed By: #### [id number] ####[facility] ([facility])[address] [place], [place] [address]Yimh nitrogen [Mass/Vol]77 mg/dLHigh7-25UnMemorial Health System Marietta Memorial HospitalComment on above:Performed By: #### [id number] ####[facility] ([facility])[address] [place], [place] [address]WLJX NITROGEN/CREATININE (MASS RATIO) IN SER/PLAS29.8NormalUniversHarrison Community HospitalComment on above: Performed By: #### [id number] ####[facility] ([facility])[address] [place], [place] [address]YHK WITH AUTO DIFFERENTIALon 83-19-3259Qdwsqhlkqef distribution width (RBC) [Ratio]18.2 %High11.5-15.0UnMemorial Health System Marietta Memorial HospitalComment on above:Performed By: #### [id number] ####[facility] ([facility])[address] [place] [address]UFLNJSQTPBS MEAN CORPUSCULAR HEMOGLOBIN CONCENTRATION (G/DL) BY OUGKZJKAL70.2 g/dLLow32.0-35.0UnMemorial Health System Marietta Memorial HospitalComment on above:Performed By: #### [id number] ####[facility] ([facility])[address] [place] [address]Dlqfvsgqcj (Bld) [Volume fraction]40.7 %Vqmgzj85.0-48.0 [facility] HospitalComment on above:Performed By: #### [id number] ####[facility] ([facility])[address] [place], [place] [address]Joieuepkfv (Bld) [Mass/Vol]12.3 g/vQLwjiaz16.0-15.0UnMemorial Health System Marietta Memorial HospitalComment on above:Performed By: #### [id number] ####[facility] ([facility])[address] [place] [address]LCZ (RBC) [Entitic mass]26.1 pgLow27.0-33.0UnMemorial Health System Marietta Memorial HospitalComment on above:Performed By: #### [id number] ####[facility] ([facility])[address] [place], [place] [address]MZN (RBC) [Entitic vol] 86.2 cRTjdvuu25.0-98.0UnMemorial Health System Marietta Memorial HospitalComment on above: Performed By: #### [id number] ####[facility] ([facility])[address] [place], [place] [address]VMBH (PER 100 WBCS) BY AUTOMATED COUNT0.0 %Vtqklz9EkmecadusgMemorial Health System Marietta Memorial HospitalComment on above:Performed By: #### [id number] ####[facility] ([facility])[address] [place], [place] [address]TDHPWHIMU (10*3/UL) IN BLOOD AUTOMATED LJVLD235 10*3/sHJatzwq650-466EzixmaxqocMemorial Health System Marietta Memorial Hospital Comment on above:Performed By: #### [id number] ####[facility] ([facility])[address] [place] [address]PRH (Bld) [#/Vol]4.72 10*6/uLNormal3.80-5.00 [facility] HospitalComment on above:Performed By: #### [id number] ####[facility] ([facility])[address] [place] [address]YEG (Bld) [#/Vol]20.94 10*3/uLHigh4.00-10.60UnMemorial Health System Marietta Memorial HospitalComment on above:Performed By: #### [id number] ####[facility] ([facility])[address] [place] [address]LMXRTM DIFFERENTIALon 44-88-0652JTFQQLRCT (10*3/UL) IN BLOOD BY CALCULATION0.04 10*3/uLNormal0.00-0.20[facility] Comment on above:Performed By: #### [id number] ####[facility] ([facility])[address] [place], [place] [address]UALIYBDSB/100 LEUKOCYTES IN BLOOD BY AUTOMATED COUNT0.2 %Normal0.0-1.0UnMemorial Health System Marietta Memorial HospitalComment on above: Performed By: #### [id number] ####[facility] ([facility])[address] [place], [place] [address]JCWTJYDFOZH (10*3/UL) IN BLOOD BY CALCULATION0.17 10*3/uL Normal0.00-0.50UnMemorial Health System Marietta Memorial HospitalComment on above:Performed By: #### [id number] ####[facility] ([facility])[address] [place] [address] EOSINOPHILS/100 LEUKOCYTES IN BLOOD BY AUTOMATED COUNT0.8 %Normal0.0-6.0 [facility] HospitalComment on above:Performed By: #### [id number] ####[facility] ([facility])[address] [place] [address]RLGFIFWE GRANULOCYTES (10*3/UL) IN BLOOD BY CALCULATION0.17 10*3/uLNormal0.00-0.20 [facility] HospitalComment on above:Performed By: #### [id number] ####[facility] ([facility])[address] [place] [address]YTMLCFTV GRANULOCYTES/100 LEUKOCYTES IN BLOOD BY AUTOMATED COUNT0.8 %Normal0.0-1.0 [facility] HospitalComment on above:Performed By: #### [id number] ####[facility] ([facility])[address] [place] [address]LQTHDOCGSTR (10*3/UL) IN BLOOD BY CALCULATION4.59 10*3/uLHigh1.20-4.00UnMemorial Health System [facility] Memorial HospitalComment on above:Performed By: #### [id number] ####[facility] ([facility])[address] [place] [address]SVATGHYYOXT/100 LEUKOCYTES IN BLOOD BY AUTOMATED COUNT21.9 %Cvofla21.0-45.0UnMemorial Health System [facility] Memorial HospitalComment on above:Performed By: #### [id number] ####[facility] ([facility])[address] [place] [address]SAMUDCQAM (10*3/UL) IN BLOOD BY CALCUATION1.61 10*3/uLHigh 0.10-1.00UnMemorial Health System [facility] Memorial HospitalComment on above:Performed By: #### [id number] ####[facility] ([facility])[address] [place] [address] MONOCYTES/100 LEUKOCYTES IN BLOOD BY AUTOMATED COUNT7.7 %Normal5.0-12.0 [facility] HospitalComment on above:Performed By: #### [id number] ####[facility] ([facility])[address] [place] [address]HNRUWKVHTRX (10*3/UL) IN BLOOD BY VGYQIYCNCOS13.4 10*3/uLHigh1.6-7.6UnMemorial Health System [facility] Memorial HospitalComment on above:Performed By: #### [id number] ####[facility] ([facility])[address] [place], [place] [address]YALDKOLBQZU/100 LEUKOCYTES IN BLOOD BY AUTOMATED COUNT68.6 %Tghdrm32.0-72.0UnMemorial Health System [facility] Memorial HospitalComment on above:Performed By: #### [id number] ####[facility] ([facility])[address] [place] [address]29zv 05-01-803745Ohmgzwc: Pain - Adult Goal: Verbalizes/displays adequate comfort level or baseline comfort level Outcome: Progressing Flowsheets (Taken 12/25/20242004) Verbalizes/displays adequate comfort level or baseline comfort level: Encourage patient to monitor pain and request assistance Assess pain using appropriate pain scale Administer analgesics based on type and severity of pain and evaluate response Implement non-pharmacological measures as appropriate and evaluate response Problem: Safety - Adult Goal: Free from fall injury Outcome: Progressing Flowsheets (Taken 12/25/20242099) Free from fall injury: Assess patient frequently for physical needs Identify cognitive and physical deficits and behaviors that affect risk of falls Roulette fall precautions as indicated by assessment Educate patient/family on patient safety, including physical limitations Instruct patient to call for assistance with activity based on assessment Problem: Discharge Planning Goal: Discharge to home or other facility with appropriate resources Outcome: Progressing Flowsheets (Taken 12/25/20242004) Discharge to home or other facility with appropriate resources: Identify barriers to discharge with patient and caregiver Arrange for needed discharge resources and transportation as appropriate Identify discharge learning needs (meds, wound care, etc) Problem: Chronic Conditions and Co-morbidities Goal: Patient's chronic conditions and co-morbidity symptoms are monitored and maintained or improved Outcome: Progressing Problem: RISK FOR DECREASED CARDIAC OUTPUT Goal: Patient will demonstrate adequate cardiac output as evidenced by blood pressure and pulse rate/rhythm within normal parameters for the patient. Outcome: Progressing Problem: IMPAIRED FLUID BALANCE Goal: Patient will demonstrate adequate fluid balance, as evidenced by absence of signs and symptoms of fluid overload or dehydration Outcome: Progressing Problem: ACTIVITY INTOLERANCE Goal: Patient will demonstrate improvement or maintenance of ability to perform daily activities without feeling excessive fatigue. Outcome: Progressing Problem: KNOWLEDGE DEFICIT Goal: Patient will participate in the learning process to identify risk factors of their disease process, including how to prevent worsening of symptoms. Outcome: Progressing Problem: SELF-CARE DEFICIT Goal: Patient will demonstrate management of self-care activities related to disease management Outcome: Progressing Problem: IMPAIRED QUALITY OF LIFE Goal: Patient will achieve stated motivational goal < EDIT> and/or demonstrate maintenance and satisfaction of qualify of life Outcome: Progressing Problem: Fall Risk Goal: LTG-Increase mobility and strength Outcome: Progressing Goal: LTG-No falls Outcome: Progressing Goal: STG-Uses assitive devices properly Outcome: Progressing Goal: STG-Ask for assistance before standing Outcome: Progressing Goal: STG-Allows staff to assist prior to standing and ambulating Outcome: Progressing Goal: STG-Use call light prior to getting out of bed Outcome: Progressing Problem: Pain Goal: LTG-Verbalize decrease in pain Outcome: Progressing Goal: LTG-Demostrate that the pain does not impair ADLs Outcome: Progressing Goal: STG-Pt will verbalize decreased discomfort Outcome: Progressing Problem: Infection Goal: LTG-No signs/symptoms of infection Outcome: Progressing Goal: LTG-Pt free of complications from infection Outcome: Progressing Goal: STG-Will allow for vitals check two times daily Outcome: Progressing The patient is Moderately Unstable - Medium risk of patient condition declining or worsening The patient's goals for the shift include comfort and rest The clinical goals for the shift include Stable vital signs, pain management Over the shift, the patient not make progress toward the following goals. Barriers to progression include . Recommendations to address these barriers include .[facility]30Daily Case Management Update Multidisciplinary rounds have been completed. Barriers to Discharge: Creatinine today 3.19, plan to continue to hold diuretics and for patient to get another Bolus of IV fluids. ID was consulted for Leukocytosis, rec to monitor patient without antibiotics and CBC W differential tomorrow. Discharge dispo: Plan at this time is for patient to discharge to [facility] when medically ready, Auth expires today. Will need to resubmit. Diet: Dietary Orders (From admission, onward) Start Ordered 12/25/24 1439 Special Kitchen Request Once Comments: Chicken salad sandwich, peaches, grape juice 12/25/24 1439 12/25/24 0859 Special Kitchen Request Once Comments: Cream of wheat, 2 sugars, butter, wheat toast, grapes, coffee, cream, 2 sugar 12/25/24 0859 12/23/24 0800 Special Kitchen Request Once Comments: Please send up pancakes, grapes, and grape juice for breakfast. Thanks! 12/23/24 0800 12/20/24 0738 Special Kitchen Request Once Comments: Liberian toast, scrambled eggs, grits, peaches, orange juice, 12/20/24 0738 12/20/24 0713 Regular Diet Heart Healthy/HTN, CABG,Stroke, (2gNA, low fat, low cholesterol); 240ml/tray Diet effective now Question Answer Comment Room Service? Yes Fat restriction: Heart Healthy/HTN, CABG,Stroke, (2gNA, low fat, low cholesterol) Fluid restriction total / 24h: 240ml/tray 12/20/24 0713 12/19/24 1638 Special Kitchen Request Once Comments: Please send patient two cups of sherbet 12/19/24 1637 12/19/24 1041 Special Kitchen Request Once Comments: For lunch please send patient cheeseburger with onion, lettuce, tomato. Liberian fries. Grape juice. 12/19/24 1041 Physician Expected Discharge Date: 12/20/2024 Discharge Delays: PT Six Click Score: 15 OT Six Click Score: 18 PT Recommendations: penitentiary facility placement OT Recommendations: penitentiary facility placement New Consults: Therapy Orders (From admission, onward) Start Ordered 12/18/24 0857 PT eval and treat Until therapy completed Question: Reason for PT? Answer: weakness 12/18/24 0857 12/18/24 0857 OT eval and treat Until therapy completed Question: Reason for OT? Answer: weakness 12/18/24 0857NormalUniversHarrison Community HospitalBASIC METABOLIC PANELon 28-29-9108Qjkxi gap [Moles/Vol]13 mmol/LNormal7-20UnMemorial Health System Marietta Memorial HospitalComment on above:Performed By: #### [id number] #### [facility] ([facility]) [address] [place], [place] [address]Ixsiacw [Mass/Vol]9.1 mg/dLNormal8.6-10.3UnMemorial Health System Mari[facility] Memorial HospitalComment on above:Performed By: #### [id number] #### [facility] ([facility]) [address] [place], [place] [address]Dycuboeh [Moles/Vol]103 mmol/EVpexei06-269GcmauljjokMemorial Health System Marietta Memorial HospitalComment on above:Performed By: #### [id number] #### [facility] ([facility]) [address] [place] [address]CA1 [Moles/Vol]27 mmol/PTcunze51-89DwhungdddtMemorial Health System Marietta Memorial HospitalComment on above:Performed By: #### [id number] #### [facility] ([facility]) [address] [place] [address]Rkgmukgkss [Mass/Vol]3.19 mg/dLHigh0.60-1.20UnMemorial Health System [facility] Memorial HospitalComment on above:Performed By: #### [id number] #### [facility] ([facility]) [address] [place] [address]OSUTANDNHF FILTRATION RATE ML/MIN/1.73 SQ M.DULALJIMS13.2 mL/min/1.73m*2Low>60.0UnMemorial Health System Mari[facility] Memorial HospitalComment on above:Result Comment: The [facility]???s estimated glomerular filtration rate (eGFR) will no longer include consideration of race in its calculation. The National Kidney Foundation???s eGFR Task Force developed new recommendations for the estimation of the glomerular filtration rate in the [place] They recommend immediate implementation of the new equation refit without the race variable in all laboratories because the calculation does not include race. In addition to not including race in the calculation and reporting, it included diversity in its development, and has acceptable performance characteristics and potential consequences that do not disproportionately affect anyone group of individuals.Performed By: #### [id number] #### [facility] ([facility]) [address] [place] [address]Sijtmpy [Mass/Vol]108 mg/eYWwul57-747KydjrqhyhaMemorial Health System Marietta Memorial HospitalComment on above:Performed By: #### [id number] #### [facility] ([facility]) [address] [place] [address]Tnvutvelw [Moles/Vol]3.2 mmol/LLow3.5-5.1UnMemorial Health System [facility] Memorial HospitalComment on above:Performed By: #### [id number] #### [facility] ([facility]) [address] [place] [place] [address]Asvnzo [Moles/Vol]140 mmol/ZRyojpw349-113OeexwwitrqMemorial Health System Marietta Memorial HospitalComment on above:Performed By: #### [id number] #### [facility] ([facility]) [address] [place] [address]Kxme nitrogen [Mass/Vol]76 mg/dLHigh7-25UnMemorial Health System [facility] Memorial HospitalComment on above:Performed By: #### [id number] #### [facility] ([facility]) [address] [place] [place], [place] [address]JXGQ NITROGEN/CREATININE (MASS RATIO) IN SER/PLAS23.8Normal [facility] HospitalComment on above:Performed By: #### [id number] #### [facility] ([facility]) [address] [place] [place] [address]LECpm 33-07-7341Wqwgujjhsfr distribution width (RBC) [Ratio]18.6 %High11.5-15.0UnMemorial Health System Marietta Memorial HospitalComment on above:Performed By: #### [id number] #### [facility] ([facility]) [address] [place] [place], [place] [address]OJCSKAPNAVI MEAN CORPUSCULAR HEMOGLOBIN CONCENTRATION (G/DL) BY HVFYTWRKK15.5 g/dLLow32.0-35.0UnMemorial Health System [facility] Memorial HospitalComment on above:Performed By: #### [id number] #### [facility] ([facility]) [address] [place], [place] [address]Fcfisiishl (Bld) [Volume fraction]44.1 %Lbohfs88.0-48.0 [facility] HospitalComment on above:Performed By: #### [id number] #### [facility] ([facility]) [address] [place], [place] [address]Mjrlokrqrt (Bld) [Mass/Vol]13.0 g/gQMusqte39.0-15.0UnMemorial Health System [facility] Memorial HospitalComment on above:Performed By: #### [id number] #### [facility] ([facility]) [address] [place] [address]YYW (RBC) [Entitic mass]25.6 pgLow27.0-33.0UnMemorial Health System Marietta Memorial HospitalComment on above:Performed By: #### [id number] #### [facility] ([facility]) [address] [place] [address]CLF (RBC) [Entitic vol]86.8 eTRqvmuv69.0-98.0UnMemorial Health System [facility] Memorial HospitalComment on above:Performed By: #### [id number] #### [facility] ([facility]) [address] [place] [address]KKRUOPHWM (10*3/UL) IN BLOOD AUTOMATED [id number] 10*3/uLNormal 150-400UnMemorial Health System [facility] Memorial HospitalComment on above:Performed By: #### [id number] #### [facility] ([facility]) [address] [place] [address]VPF (Bld) [#/Vol]5.08 10*6/uLHigh3.80-5.00UnMemorial Health [facility] Memorial HospitalComment on above:Performed By: #### [id number] #### [facility] ([facility]) [address] [place] [address]EOZ (Bld) [#/Vol]24.62 10*3/uLHigh4.00-10.60UnMemorial Health [facility] Memorial HospitalComment on above:Performed By: #### [id number] #### [facility] ([facility]) [address] [place] [address]NLYIZZHji 80-02-2685DSTXFZS Attestation signed by Simon Cristobal MD at 12/25/2024 4:34 PM By using the attestations below, the signing clinician agrees that I have read and verify that the documentation has been personally reviewed by me and ensure that the documentation accurately reflects the encounter. GC: I personally saw this patient on the day of the encounter, performed the dai portion(s) of the service and participated in the management and confirm the resident's documentation. Please note there may be an additional personal documentation from me. Additional Comments: Patient denies any complaint, beside some diarrhea, negative Cdiff and enteric bacterial panel CT no colitis Recent steroid administration, likely reactive to that and ARTURO Monitor for now, if febrile check blood cx No antibiotics indicated at this time Simon Cristobal MD Infectious diseases Infectious Diseases - Initial Consult Note - Patient name: Gera Perdue Patient Today's Date and Time: 12/25/2024, 3:39 PM Admission Date: 12/17/2024 Impression: Acute leukocytosis in an afebrile patient White blood cell trend: 7 on 12/18 to 12 on 12/20 to 17 on 12/22 to 19 on 12/24 to 24 on 12/25 This is likely multifactorial both from recent steroids administration, patient received multiple doses of methylprednisolone from the to the as well as her recent and progressively worsening kidney function Acute abdominal pain and acute diarrhea, resolved C. difficile is ruled out CT abdomen pelvis shows air-fluid levels with nondilated colon suggestive of acute diarrheal illness Recommendations: Given that there is an explanation for the leukocytosis, which is steroids and ARTURO in her case, we recommend to monitor the patient and advised against antibiotics or other further evaluation in the meantime Please obtain blood cultures if the patient becomes febrile We switched her CBC into CBC with differential starting from tomorrow Subjective Reason for consultation / Chief complaint: Leukocytosis Referring Provider: Dr Smith History of Present Illness Gera Perdue is a 79 y.o.-year-old female who was initially admitted on 12/17/2024. 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 Reports that she started to have chest pain this morning that was midsternal and radiated down her left arm. She states associated diaphoresis, lightheadedness, dizziness and nausea. She also endorses some mild shortness of breath. Patient reports that she has had stenting in the past. Patient was directly transferred to our emergency department. She was found of a blood pressure of 128/86, heart rate 100, temp 97.7 and 98% on home dose of oxygen. Labs completed showing troponin 1.12 and potassium 3.4. CXR completed outside hospital showing no acute process. EKG completed showing normal sinus rhythm. Patient started on heparin infusion. I personally spoke with patient and she would like to be a DNR CCA without intubation. This is confirmed with paperwork brought from her facility. Past Medical History: Past Medical History: Diagnosis Date COPD (chronic obstructive pulmonary disease) ([facility]) Hypertension Past Surgical History: Past Surgical History: Procedure Laterality Date COLON SURGERY Medications: Scheduled: acetaminophen, 1,000 mg, oral, q8h atorvastatin, 40 mg, oral, Daily budesonide, 0.5 mg, nebulization, Daily buPROPion XL, 300 mg, oral, q AM cholecalciferol, 2,000 Units, oral, Daily clopidogrel, 75 mg, oral, Daily [Held by provider] dapagliflozin propanediol, 10 mg, oral, Daily [Held by provider] furosemide, 40 mg, oral, BID with meals heparin (porcine), 5,000 Units, subcutaneous, BID hydrocortisone, , Topical, BID lactobacillus acidophilus, 1 capsule, oral, TID metoprolol succinate XL, 25 mg, oral, Daily Oxygen Therapy, , inhalation, Continuous pregabalin, 75 mg, oral, BID [Held by provider] sacubitril-valsartan, 1 tablet, oral, BID [Held by provider] spironolactone, 50 mg, oral, Daily umeclidinium-vilanteroL, 1 puff, inhalation, Daily Infusions: Social History: Social History Socioeconomic History Marital status: Single Spouse name: None Number of children: None Years of education: None Highest education level: None Occupational History None Tobacco Use Smoking status: Never Smokeless tobacco: Never Substance and Sexual Activity Alcohol use: Not Currently Drug use: Not Currently Sexual activity: None Other Topics Concern None Social History Narrative None (more content not included)...[facility]30on [id number]: Pain - Adult Goal: Verbalizes/displays adequate comfort level or baseline comfort level Outcome: Progressing Flowsheets (Taken 12/24/20241999) Verbalizes/displays adequate comfort level or baseline comfort level: Encourage patient to monitor pain and request assistance Assess pain using appropriate pain scale Administer analgesics based on type and severity of pain and evaluate response Implement non-pharmacological measures as appropriate and evaluate response Problem: Safety - Adult Goal: Free from fall injury Outcome: Progressing Problem: Discharge Planning Goal: Discharge to home or other facility with appropriate resources Outcome: Progressing Flowsheets (Taken 12/24/20241999) Discharge to home or other facility with appropriate resources: Identify barriers to discharge with patient and caregiver Arrange for needed discharge resources and transportation as appropriate Identify discharge learning needs (meds, wound care, etc) Problem: Chronic Conditions and Co-morbidities Goal: Patient's chronic conditions and co-morbidity symptoms are monitored and maintained or improved Outcome: Progressing Problem: RISK FOR DECREASED CARDIAC OUTPUT Goal: Patient will demonstrate adequate cardiac output as evidenced by blood pressure and pulse rate/rhythm within normal parameters for the patient. Outcome: Progressing Problem: IMPAIRED FLUID BALANCE Goal: Patient will demonstrate adequate fluid balance, as evidenced by absence of signs and symptoms of fluid overload or dehydration Outcome: Progressing Problem: ACTIVITY INTOLERANCE Goal: Patient will demonstrate improvement or maintenance of ability to perform daily activities without feeling excessive fatigue. Outcome: Progressing Problem: KNOWLEDGE DEFICIT Goal: Patient will participate in the learning process to identify risk factors of their disease process, including how to prevent worsening of symptoms. Outcome: Progressing Problem: SELF-CARE DEFICIT Goal: Patient will demonstrate management of self-care activities related to disease management Outcome: Progressing Problem: IMPAIRED QUALITY OF LIFE Goal: Patient will achieve stated motivational goal < EDIT> and/or demonstrate maintenance and satisfaction of qualify of life Outcome: Progressing Problem: Fall Risk Goal: LTG-Increase mobility and strength Outcome: Progressing Goal: LTG-No falls Outcome: Progressing Goal: STG-Uses assitive devices properly Outcome: Progressing Goal: STG-Ask for assistance before standing Outcome: Progressing Goal: STG-Allows staff to assist prior to standing and ambulating Outcome: Progressing Goal: STG-Use call light prior to getting out of bed Outcome: Progressing Problem: Pain Goal: LTG-Verbalize decrease in pain Outcome: Progressing Goal: LTG-Demostrate that the pain does not impair ADLs Outcome: Progressing Goal: STG-Pt will verbalize decreased discomfort Outcome: Progressing Problem: Infection Goal: LTG-No signs/symptoms of infection Outcome: Progressing Goal: LTG-Pt free of complications from infection Outcome: Progressing Goal: STG-Will allow for vitals check two times daily Outcome: Progressing The patient is Moderately Unstable - Medium risk of patient condition declining or worsening The patient's goals for the shift include comfort and rest The clinical goals for the shift include stable vitals, pain management, diarrhea management Over the shift, the patient did make progress toward the following goals. Barriers to progression include . Recommendations to address these barriers include .[facility]30Daily Case Management Update Multidisciplinary rounds have been completed. Barriers to Discharge: Cr. 1.86 today. Holding diuretics. Fluid bolus ordered. Have auth to [facility] when ready. Diet: Dietary Orders (From admission, onward) Start Ordered 12/23/24 0800 Special Kitchen Request Once Comments: Please send up pancakes, grapes, and grape juice for breakfast. Thanks! 12/23/24 0800 12/20/24 0738 Special Kitchen Request Once Comments: Liberian toast, scrambled eggs, grits, peaches, orange juice, 12/20/24 0738 12/20/24 0713 Regular Diet Heart Healthy/HTN, CABG,Stroke, (2gNA, low fat, low cholesterol); 240ml/tray Diet effective now Question Answer Comment Room Service? Yes Fat restriction: Heart Healthy/HTN, CABG,Stroke, (2gNA, low fat, low cholesterol) Fluid restriction total / 24h: 240ml/tray 12/20/24 0713 12/19/24 1638 Special Kitchen Request Once Comments: Please send patient two cups of sherbet 12/19/24 1637 12/19/24 1041 Special Kitchen Request Once Comments: For lunch please send patient cheeseburger with onion, lettuce, tomato. Liberian fries. Grape juice. 12/19/24 1041 Physician Expected Discharge Date: 12/20/2024 Discharge Delays: PT Six Click Score: 16 OT Six Click Score: 18 PT Recommendations: penitentiary facility placement OT Recommendations: penitentiary facility placement Is expected discharge disposition appropriate for patient?: Yes New Consults: Therapy Orders (From admission, onward) Start Ordered 12/18/24 0857 PT eval and treat Until therapy completed Question: Reason for PT? Answer: weakness 12/18/24 0857 12/18/24 0857 OT eval and treat Until therapy completed Question: Reason for OT? Answer: weakness 12/18/24 0857NormalUniTriHealth [facility]30The patient is Moderately Unstable - Medium risk of patient condition declining or worsening The patient's goals for the shift include Comfort, rest, pain free The clinical goals for the shift include VSS, diarrhea management, safety, pain management Problem: Pain - Adult Goal: Verbalizes/displays adequate comfort level or baseline comfort level Outcome: Progressing Problem: Safety - Adult Goal: Free from fall injury Outcome: Progressing Problem: Chronic Conditions and Co-morbidities Goal: Patient's chronic conditions and co-morbidity symptoms are monitored and maintained or improved Outcome: Progressing Problem: KNOWLEDGE DEFICIT Goal: Patient will participate in the learning process to identify risk factors of their disease process, including how to prevent worsening of symptoms. Outcome: ProgressingNormalUniTriHealth McCullough-Hyde Memorial HospitalBASIC METABOLIC PANELon [phone] gap [Moles/Vol]17 mmol/LNormal7-20UnMemorial Health System Marietta Memorial HospitalComment on above:Performed By: #### [id number] ####[facility] ([employer])[address] [place], [place] [address]Phrkyrc [Mass/Vol]8.3 mg/dLLow8.6-10.3 [facility] HospitalComment on above:Performed By: #### [id number] ####[facility] ([employer])[address] [place], [place] [address]Cjocsgkb [Moles/Vol]101 mmol/ICignsm89-888UwkgeqaemfMemorial Health System Marietta Memorial HospitalComment on above:Performed By: #### [id number] ####[facility] ([employer])[address] [place], [place] [address]HG7 [Moles/Vol]24 mmol/QVsgmfm89-54SlreotysohMemorial Health System Marietta Memorial HospitalComment on above:Performed By: #### [id number] ####[facility] ([facility])[address] [place] [address]Wluedbxvkj [Mass/Vol]1.86 mg/dLHigh 0.60-1.20UnMemorial Health System Marietta Memorial HospitalComment on above:Performed By: #### [id number] ####[facility] ([facility])[address] [place], [place] [address]DIUYRKRAMK FILTRATION RATE ML/MIN/1.73 SQ M.VPQVZZAPT78.2 mL/min/1.73m*2Low>60.0UnMemorial Health System Marietta Memorial HospitalComment on above:Result Comment: The [facility]???s estimated glomerular filtration rate (eGFR) will no longer include consideration of race in its calculation. The National Kidney Foundation???s eGFR Task Force developed new recommendations for the estimation of the glomerular filtration rate in the [place] They recommend immediate implementation of the new equation refit without the race variable in all laboratories because the calculation does not include race. In addition to not including race in the calculation and reporting, it included diversity in its development, and has acceptable performance characteristics and potential consequences that do not disproportionately affect anyone group of individuals. Performed By: #### [id number] ####[facility] ([facility])[address] [place], [place] [address]Yqjzwgr [Mass/Vol]83 mg/eTYlmtll50-266OuadnhtkppMemorial Health System Marietta Memorial HospitalComment on above:Performed By: #### [id number] ####[facility] ([facility])[address] [place], [place] [address]Wdnvonycy [Moles/Vol]3.8 mmol/LNormal 3.5-5.1UnMemorial Health System Marietta Memorial HospitalComment on above:Performed By: #### [id number] ####[facility] ([facility])[address] [place] [address]Labmol [Moles/Vol]138 mmol/UUvasht433-020EsmwzxpreaMemorial Health System Marietta Memorial HospitalComment on above:Performed By: #### [id number] ####[facility] ([facility])[address] [place], [place] [address]Qdlc nitrogen [Mass/Vol]68 mg/dLHigh7-25UnMemorial Health System Marietta Memorial HospitalComment on above:Performed By: #### [id number] ####[facility] ([facility])[address] [place], [place] [address]KCQR NITROGEN/CREATININE (MASS RATIO) IN SER/PLAS36.6NormalUniversHarrison Community HospitalComment on above: Performed By: #### [id number] ####[facility] ([facility])[address] [place] [address]YHRib 20-36-2099Xcctytugyvx distribution width (RBC) [Ratio]18.7 %High 11.5-15.0UnMemorial Health System Marietta Memorial HospitalComment on above:Performed By: #### [id number] #### [facility] ([facility]) [address] [place], [place] [address]SJXFLXOKYMB MEAN CORPUSCULAR HEMOGLOBIN CONCENTRATION (G/DL) BY ODBFRNKTF81.4 g/dLLow32.0-35.0UnMemorial Health System Marietta Memorial HospitalComment on above:Performed By: #### [id number] #### [facility] ([facility]) [address] [place], [place] [address]Cagzjmxlxb (Bld) [Volume fraction]44.6 %Zecaum62.0-48.0 [facility] HospitalComment on above:Performed By: #### [id number] #### [facility] ([facility]) [address] [place], [place] [address]Lzplixtrmj (Bld) [Mass/Vol]13.1 g/eKSakhfs96.0-15.0UnMemorial Health System Marietta Memorial HospitalComment on above:Performed By: #### [id number] #### [facility] ([facility]) [address] [place], [place] [address]WZI (RBC) [Entitic mass]25.8 pgLow27.0-33.0UnMemorial Health System Marietta Memorial HospitalComment on above:Performed By: #### [id number] #### [facility] ([facility]) [address] [place], [place] [address]WBT (RBC) [Entitic vol]88.0 sNHvvjua34.0-98.0UnMemorial Health System Marietta Memorial HospitalComment on above:Performed By: #### [id number] #### [facility] ([facility]) [address] [place], [place] [address]VQNTPTSOZ (10*3/UL) IN BLOOD AUTOMATED [id number] 10*3/uLNormal 150-400UnMemorial Health System Marietta Memorial HospitalComment on above:Performed By: #### [id number] #### [facility] ([facility]) [address] [place], [place] [address]MLD (Bld) [#/Vol]5.07 10*6/uLHigh3.80-5.00UnMemorial Health System Mari[facility] Memorial HospitalComment on above:Performed By: #### [id number] #### [facility] ([facility]) [address] [place], [place] [address]HVD (Bld) [#/Vol]19.04 10*3/uLHigh4.00-10.60UnMemorial Health System Marietta Memorial HospitalComment on above:Performed By: #### [id number] #### [facility] ([facility]) [address] [place], [place] [address]qb [id number] patient is Moderately Stable - Low risk of patient condition declining or worsening The patient's goals for the shift include comfort, rest The clinical goals for the shift include stable vitals, diarrhea mgmt, pain mangementNormalUniversHarrison Community Hospital30Daily Case Management Update Multidisciplinary rounds have been completed. Barriers to Discharge: Patient continues to have poor appetite, Cr increased today, medications placed on hold due to this. Discharge dispo: plan at this time is for patient to discharge to SNF. SW following, was able to get auth for [facility] but family is wanting patient to go to [facility] instead. SW working on seeing if precert can be changed/if [facility] is able to accept. Diet: Dietary Orders (From admission, onward) Start Ordered 12/23/24 0800 Special Kitchen Request Once Comments: Please send up pancakes, grapes, and grape juice for breakfast. Thanks! 12/23/24 0800 12/20/24 0738 Special Kitchen Request Once Comments: Liberian toast, scrambled eggs, grits, peaches, orange juice, 12/20/24 0738 12/20/24 0713 Regular Diet Heart Healthy/HTN, CABG,Stroke, (2gNA, low fat, low cholesterol); 240ml/tray Diet effective now Question Answer Comment Room Service? Yes Fat restriction: Heart Healthy/HTN, CABG,Stroke, (2gNA, low fat, low cholesterol) Fluid restriction total / 24h: 240ml/tray 12/20/24 0713 12/19/24 1638 Special Kitchen Request Once Comments: Please send patient two cups of sherbet 12/19/24 1637 12/19/24 1041 Special Kitchen Request Once Comments: For lunch please send patient cheeseburger with onion, lettuce, tomato. Liberian fries. Grape juice. 12/19/24 1041 Physician Expected Discharge Date: 12/20/2024 Discharge Delays: PT Six Click Score: 15 OT Six Click Score: 18 PT Recommendations: penitentiary facility placement OT Recommendations: penitentiary facility placement New Consults: Therapy Orders (From admission, onward) Start Ordered 12/18/24 0857 PT eval and treat Until therapy completed Question: Reason for PT? Answer: weakness 12/18/24 0857 12/18/24 0857 OT eval and treat Until therapy completed Question: Reason for OT? Answer: weakness 12/18/24 0857NormalUniTriHealth McCullough-Hyde Memorial Hospital30on [id number] patient is Moderately Stable - Low risk of patient condition declining or worsening The patient's goals for the shift include Diarrhea stops. The clinical goals for the shift include Vital signs WNL and patient's diarrhea stops.NormalProMedica Fostoria Community Hospital30Daily Case Management Update Multidisciplinary rounds have been completed. Barriers to Discharge: Pending clinical course and improvement in clinical condition. Patient has rectal tube at this time. Multiple medications on hold at this time. Discharge dispo: pending clinical course, PT/OT rec SNF. SW is following and is working on SNF Placement. Diet: Dietary Orders (From admission, onward) Start Ordered 12/20/24 0738 Special Kitchen Request Once Comments: Liberian toast, scrambled eggs, grits, peaches, orange juice, 12/20/24 0738 12/20/24 0713 Regular Diet Heart Healthy/HTN, CABG,Stroke, (2gNA, low fat, low cholesterol); 240ml/tray Diet effective now Question Answer Comment Room Service? Yes Fat restriction: Heart Healthy/HTN, CABG,Stroke, (2gNA, low fat, low cholesterol) Fluid restriction total / 24h: 240ml/tray 12/20/24 0713 12/19/24 1638 Special Kitchen Request Once Comments: Please send patient two cups of sherbet 12/19/24 1637 12/19/24 1041 Special Kitchen Request Once Comments: For lunch please send patient cheeseburger with onion, lettuce, tomato. Liberian fries. Grape juice. 12/19/24 1041 Physician Expected Discharge Date: 12/20/2024 Discharge Delays: PT Six Click Score: 15 OT Six Click Score: 18 PT Recommendations: penitentiary facility placement OT Recommendations: penitentiary facility placement New Consults: Therapy Orders (From admission, onward) Start Ordered 12/18/24 0857 PT eval and treat Until therapy completed Question: Reason for PT? Answer: weakness 12/18/24 0857 12/18/24 0857 OT eval and treat Until therapy completed Question: Reason for OT? Answer: weakness 12/18/24 0857NormalUniversHarrison Community Hospital30The patient is Moderately Stable - Low risk of patient condition declining or worsening The patient's goals for the shift include Diarrhea stops. The clinical goals for the shift include Vital signs WNL and patient's diarrhea stops. Over the shift, the patient did not make progress toward the following goals. Barriers to progression include I'm not sure. Patient is still having diarrhea and I don't know why. Recommendations to address these barriers include perhaps Immodium to reduce the diarrhea and a fecal management system to prevent excoriation of the kay area, anus and buttocks.NormalUnMemorial Health System Marietta Memorial HospitalBASIC METABOLIC PANELon 49-10-2313Rcisr gap [Moles/Vol]16 mmol/L Normal7-20UnMemorial Health System Marietta Memorial HospitalComment on above:Performed By: #### [id number] ####[facility] ([facility])[address] [place], [place] [address]Abejeeg [Mass/Vol]8.5 mg/dLLow8.6-10.3UnMemorial Health System Marietta Memorial HospitalComment on above:Performed By: #### [id number] ####[facility] ([facility])[address] [place], [place] [address]Supbbxzf [Moles/Vol]95 mmol/YFop93-993RybluyxqmdMemorial Health System Marietta Memorial HospitalComment on above:Performed By: #### [id number] ####[facility] ([facility])[address] [place], [place] [address]AA6 [Moles/Vol]32 mmol/QAoxz54-73 [facility] HospitalComment on above:Performed By: #### [id number] ####[facility] ([facility])[address] [place], [place] [address]Ioozoobknw [Mass/Vol]1.30 mg/dLHigh0.60-1.20UnMemorial Health System Marietta Memorial HospitalComment on above:Performed By: #### [id number] ####[facility] ([facility])[address] [place], [place] [address]ZOERRCCSUA FILTRATION RATE ML/MIN/1.73 SQ M.WZIYDVOPV91.8 mL/min/1.73m*2Low>60.0UnMemorial Health System Marietta Memorial HospitalComment on above:Result Comment: The [facility]???s estimated glomerular filtration rate (eGFR) will no longer include consideration of race in its calculation. The National Kidney Foundation???s eGFR Task Force developed new recommendations for the estimation of the glomerular filtration rate in the [place] They recommend immediate implementation of the new equation refit without the race variable in all laboratories because the calculation does not include race. In addition to not including race in the calculation and reporting, it included diversity in its development, and has acceptable performance characteristics and potential consequences that do not disproportionately affect anyone group of individuals.Performed By: #### [id number] ####[facility] ([facility])[address] [place], [place] [address]Riesywx [Mass/Vol]120 mg/uNAbgg67-941VexdmdhsxhMemorial Health System Marietta Memorial HospitalComment on above:Performed By: #### [id number] ####[facility] ([facility])[address] [place] [address]Tijaqxwcx [Moles/Vol]3.1 mmol/L Low3.5-5.1UnMemorial Health System Marietta Memorial HospitalComment on above:Performed By: #### [id number] ####[facility] ([facility])[address] [place] [address]Fdwlse [Moles/Vol]140 mmol/QYqrmvj606-784EvzxdmtnxlMemorial Health System Marietta Memorial HospitalComment on above:Performed By: #### [id number] ####[facility] ([facility])[address] [place], [place] [address]Qxvo nitrogen [Mass/Vol]40 mg/dLHigh7-25UnMemorial Health System Marietta Memorial HospitalComment on above:Performed By: #### [id number] ####[facility] ([facility])[address] [place], [place] [address]HBTT NITROGEN/CREATININE (MASS RATIO) IN SER/PLAS30.8NormalUniversHarrison Community HospitalComment on above: Performed By: #### [id number] ####[facility] ([facility])[address] [place], [place] [address]WIJfe 76-71-3435Rsoydaupgtq distribution width (RBC) [Ratio]19.4 %High 11.5-15.0UnMemorial Health System Marietta Memorial HospitalComment on above:Performed By: #### [id number] #### [facility] ([facility]) [address] [place], [place] [address]UWEFYNTAZGW MEAN CORPUSCULAR HEMOGLOBIN CONCENTRATION (G/DL) BY RODDEANJI39.8 g/dLLow32.0-35.0UnMemorial Health System Marietta Memorial HospitalComment on above:Performed By: #### [id number] #### [facility] ([facility]) [address] [place], [place] [address]Nwptlehkiy (Bld) [Volume fraction]42.5 %Ynmghn86.0-48.0 [facility] HospitalComment on above:Performed By: #### [id number] #### [facility] ([facility]) [address] [place] [address]Brccydnusp (Bld) [Mass/Vol]13.1 g/wXMlboqg24.0-15.0UnMemorial Health System Marietta Memorial HospitalComment on above:Performed By: #### [id number] #### [facility] ([facility]) [address] [place] [address]PXK (RBC) [Entitic mass]25.8 pgLow27.0-33.0UnMemorial Health System Marietta Memorial HospitalComment on above:Performed By: #### [id number] #### [facility] ([facility]) [address] [place] [address]YCE (RBC) [Entitic vol]83.7 oULgtnim13.0-98.0UnMemorial Health System Marietta Memorial HospitalComment on above:Performed By: #### [id number] #### [facility] ([facility]) [address] [place] [address]DUTSXHEUF (10*3/UL) IN BLOOD AUTOMATED [id number] 10*3/uLNormal 150-400UnMemorial Health System Marietta Memorial HospitalComment on above:Performed By: #### [id number] #### [facility] ([facility]) [address] [place] [address]LDZ (Bld) [#/Vol]5.08 10*6/uLHigh3.80-5.00UnMemorial Health System Marietta Memorial HospitalComment on above:Performed By: #### [id number] #### [facility] ([facility]) [address] [place] [address]MDH (Bld) [#/Vol]17.10 10*3/uLHigh4.00-10.60UnMemorial Health System Marietta Memorial HospitalComment on above:Performed By: #### [id number] #### [facility] (BEAKER) [address] [place] [id number] [id number] patient is Moderately Stable - Low risk of patient condition declining or worsening The patient's goals for the shift include comfort, rest The clinical goals for the shift include vssNormalUniversHarrison Community HospitalB-TYPE NATRIURETIC PEPTIDEon 56-40-0327Csjobhcxqnm peptide B (Bld) [Mass/Vol]571 pg/mLHigh0-100UnMemorial Health System Marietta Memorial HospitalComment on above: Performed By: #### [id number] #### [facility] ([facility]) [address] [place], [place] [address]KNRTS METABOLIC PANELon 95-53-7622Zlghn gap [Moles/Vol]10 mmol/L Normal7-20UnMemorial Health System Marietta Memorial HospitalComment on above:Performed By: #### [id number] #### [facility] ([facility]) [address] [place], [place] [address]Dehecwa [Mass/Vol]9.3 mg/dLNormal8.6-10.3UnMemorial Health System Marietta Memorial HospitalComment on above:Performed By: #### [id number] #### [facility] ([facility]) [address] [place], [place] [address]Vjudkxrs [Moles/Vol]94 mmol/SCqv73-138DqsbbjbylaMemorial Health System Marietta Memorial HospitalComment on above:Performed By: #### [id number] #### [facility] ([facility]) [address] [place], [place] [address]JY7 [Moles/Vol]41 mmol/LCritically wuqh40-50VjxoqujbepMemorial Health System Marietta Memorial HospitalComment on above:Performed By: #### [id number] #### [facility] ([facility]) [address] [place], [place] [address]Gzbqfwhgtd [Mass/Vol]1.11 mg/dLNormal0.60-1.20UnMemorial Health System Mari[facility] Memorial HospitalComment on above:Performed By: #### [id number] #### [facility] ([facility]) [address] [place], [place] [address]GDALHQHGYG FILTRATION RATE ML/MIN/1.73 SQ M.IZGABRTEA43.6 mL/min/1.73m*2Low>60.0UnMemorial Health System Marietta Memorial HospitalComment on above:Result Comment: The [facility]???s estimated glomerular filtration rate (eGFR) will no longer include consideration of race in its calculation. The National Kidney Foundation???s eGFR Task Force developed new recommendations for the estimation of the glomerular filtration rate in the [place] They recommend immediate implementation of the new equation refit without the race variable in all laboratories because the calculation does not include race. In addition to not including race in the calculation and reporting, it included diversity in its development, and has acceptable performance characteristics and potential consequences that do not disproportionately affect anyone group of individuals.Performed By: #### [id number] #### [facility] ([facility]) [address] [place], [place] [address]Wtyammj [Mass/Vol]154 mg/aGKvdo84-205XhfgiiwduvMemorial Health System Marietta Memorial HospitalComment on above:Performed By: #### [id number] #### [facility] ([facility]) [address] [place], [place] [address]Ovlitvdta [Moles/Vol]3.5 mmol/LNormal3.5-5.1UnMemorial Health System [facility] Memorial HospitalComment on above:Performed By: #### [id number] #### [facility] ([facility]) [address] [place], [place] [address]Xvkeqk [Moles/Vol]141 mmol/YPpuwdf981-924ShvyjvdssuMemorial Health System Marietta Memorial HospitalComment on above:Performed By: #### [id number] #### [facility] ([facility]) [address] [place], [place] [address]Cvhn nitrogen [Mass/Vol]32 mg/dLHigh7-25UnMemorial Health [facility] Memorial HospitalComment on above:Performed By: #### [id number] #### [facility] ([facility]) [address] [place], [place] [address]RBFK NITROGEN/CREATININE (MASS RATIO) IN SER/PLAS28.8Normal [facility] HospitalComment on above:Performed By: #### [id number] #### [facility] ([facility]) [address] [place], [place] [address]YLGPTWQCJCVZIN DIFFICILE DNA AMPLIFICATIONon 12-21-2024 CLOSTRIDIOIDES DIFFICILE (TOXIN A/B)NegativeNormalNegativeUnMemorial Health System Marietta Memorial HospitalComment on above:Order Comment: Testing methodology is an in vitro diagnostic test for the direct, qualitative detection of the Clostridioides difficile Toxin A gene (tcdA) in unformed stool specimens of patients suspected of having Clostridioides difficile-infection (CDI). The [employer] C. difficile Assay is intendedfor use as an aid in diagnosis of CDI. The assay utilizes helicase-dependent amplification (HDA) for the amplification of a highly conserved fragment of the Toxin A gene sequence.Performed By: #### [id number] #### [facility] (BEAKER) [address] [place], [place] [address]PBUDVGEua 18-05-1969KYQWKRPYbihs Nutrition Assessment: Name: Gera Perdue Date: 1945 Date of Visit: 12/21/24 Admission Dx: NSTEMI (non-ST elevated myocardial infarction) ([facility]) [I21.4] Reason for assessment: MD referral Information obtained from: patient, medical record, and nursing Past Medical History: Diagnosis Date COPD (chronic obstructive pulmonary disease) ([facility]) Hypertension Current Medications: atorvastatin, 40 mg, oral, Daily budesonide, 0.5 mg, nebulization, Daily buPROPion XL, 300 mg, oral, q AM cholecalciferol, 2,000 Units, oral, Daily clopidogrel, 75 mg, oral, Daily dapagliflozin propanediol, 10 mg, oral, Daily furosemide, 40 mg, intravenous, q12h heparin (porcine), 5,000 Units, subcutaneous, BID lactobacillus acidophilus, 1 capsule, oral, TID methylPREDNISolone sod suc (PF), 40 mg, intravenous, q8h metoprolol succinate XL, 25 mg, oral, Daily Oxygen Therapy, , inhalation, Continuous pregabalin, 75 mg, oral, BID sacubitril-valsartan, 1 tablet, oral, BID spironolactone, 50 mg, oral, Daily umeclidinium-vilanteroL, 1 puff, inhalation, Daily Labs: 0 Lab Value Date/Time BUN 32 (H) 12/21/2024 0511 CREATININE 1.11 12/21/2024 0511 NA 141 12/21/2024 0511 K 3.5 12/21/2024 0511 MG 1.9 12/17/20242045 HGB 10.2 (L) 12/20/2024 050 WBC 12.79 (H) 12/20/2024504 Allergies: Allergies Allergen Reactions Aspirin Hives, Nausea And Vomiting and Other Other Reaction(s): Mental Status Change Nutrition Problems: Swallowing Assessment: Pt reported no problems with swallowing. H&P reported soft diet with mildly thick liquids at baseline Mouth: missing teeth Abdominal Assessment: Pt reported that she has been having nausea, vomiting, and diarrhea since last night. Pt reported that she got sausage that was cold and not cooked right and that caused the vomiting last night. Pt reported that she is getting a shot that helps with it a little bit. Last BM 12/21. Appetite: fair Cognition: A&O x 4 Feeding Skills: Pt reported that her family cooks for her and that she has good access to food Skin Integrity: bruising and redness under breasts Edema: RLE +2, LLE +1 Other Factors: EF 25% Nutrition Data/Clinical Indicators of Nutrition Status: Height: 152.4 cm (5') Weight: 87.4 kg (192 lb 10.9 oz) BMI (Calculated): 37.63 Wt Readings from Last 10 Encounters: 12/21/24 87.4 kg (192 lb 10.9 oz) 10/16/24 88.6 kg internal med 07/02/24 84.8 kg podiatry 06/22/24 85.7 kg internal med 12/18/23 79.4 kg internal med IBW: 45.5 kg Weight change: Documented weight history shows weight has been pretty stable. Pt reported no recent weight changes. Nutrition Assessment: Pt reported that her appetite was okay until last night when she developed nausea, vomiting, and diarrhea. Pt reported that she has not had any recent changes in her intake. Pt reported that she will eat between 1-3 meal a day and it depends on how she is feeling. Pt reported that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 Memorial HospitalComment on above:Performed By: #### [id number] #### [facility] ([facility]) [address] [place] [address]ETINGJUVF ESTERASE PRESENCE IN URINE BY TEST STRIPTraceAbnormal NegativeUnMemorial Health System Marietta Memorial HospitalComment on above:Performed By: #### [id number] #### [facility] ([facility]) [address] [place] [address]NJCOBUU PRESENCE IN URINENegativeNormalNegativeUnMemorial Health System Marietta Memorial HospitalComment on above:Performed By: #### [id number] #### [facility] ([facility]) [address] [place] [address]wN (U)6.0 [pH]Normal5.0-8.0[facility] Comment on above:Performed By: #### [id number] #### [facility] ([facility]) [address] [place] [address]Vddxete (U) [Mass/Vol]30 mg/dLAbnormalNegativeUnMemorial Health System Marietta Memorial HospitalComment on above:Performed By: #### [id number] #### [facility] ([facility]) [address] [place] [address]Gpahruln gravity (U) [Rel density]>1.815Ohdg9.010-1.030 [facility] HospitalComment on above:Performed By: #### [id number] #### [facility] ([facility]) [address] [place] [address]WFIXCDDOXZFB (MG/DL) IN URINENormalNormalNormalUniTriHealth McCullough-Hyde Memorial HospitalComment on above:Performed By: #### [id number] #### [facility] ([facility]) [address] [place] [address] [id number] patient is Moderately Stable - Low risk of patient condition declining or worsening The patient's goals for the shift include comfort, rest The clinical goals for the shift include vss, cath site checksNormalUniversity of [facility]30The patient is Moderately Stable - Low risk of patient condition declining or worsening The patient's goals for the shift include comfort The clinical goals for the shift include vss Over the shift, the patient did make progress toward the following goals. Barriers to progression include n/a. Recommendations to address these barriers include n/a. Problem: Pain - Adult Goal: Verbalizes/displays adequate comfort level or baseline comfort level Outcome: Progressing Problem: Safety - Adult Goal: Free from fall injury Outcome: Progressing Problem: Discharge Planning Goal: Discharge to home or other facility with appropriate resources Outcome: Progressing Problem: Chronic Conditions and Co-morbidities Goal: Patient's chronic conditions and co-morbidity symptoms are monitored and maintained or improved Outcome: Progressing Problem: RISK FOR DECREASED CARDIAC OUTPUT Goal: Patient will demonstrate adequate cardiac output as evidenced by blood pressure and pulse rate/rhythm within normal parameters for the patient. Outcome: Progressing Problem: IMPAIRED FLUID BALANCE Goal: Patient will demonstrate adequate fluid balance, as evidenced by absence of signs and symptoms of fluid overload or dehydration Outcome: Progressing Problem: ACTIVITY INTOLERANCE Goal: Patient will demonstrate improvement or maintenance of ability to perform daily activities without feeling excessive fatigue. Outcome: Progressing Problem: KNOWLEDGE DEFICIT Goal: Patient will participate in the learning process to identify risk factors of their disease process, including how to prevent worsening of symptoms. Outcome: Progressing Problem: SELF-CARE DEFICIT Goal: Patient will demonstrate management of self-care activities related to disease management Outcome: Progressing Problem: IMPAIRED QUALITY OF LIFE Goal: Patient will achieve stated motivational goal < EDIT> and/or demonstrate maintenance and satisfaction of qualify of life Outcome: Progressing Problem: Fall Risk Goal: LTG-Increase mobility and strength Outcome: Progressing Goal: LTG-No falls Outcome: Progressing Goal: STG-Uses assitive devices properly Outcome: Progressing Goal: STG-Ask for assistance before standing Outcome: Progressing Goal: STG-Allows staff to assist prior to standing and ambulating Outcome: Progressing Goal: STG-Use call light prior to getting out of bed Outcome: Progressing Problem: Pain Goal: LTG-Verbalize decrease in pain Outcome: Progressing Goal: LTG-Demostrate that the pain does not impair ADLs Outcome: Progressing Goal: STG-Pt will verbalize decreased discomfort Outcome: Progressing Problem: Infection Goal: LTG-No signs/symptoms of infection Outcome: Progressing Goal: LTG-Pt free of complications from infection Outcome: Progressing Goal: STG-Will allow for vitals check two times daily Outcome: ProgressingNormalUniversHarrison Community Hospital30Daily Case Management Update Multidisciplinary rounds have been completed. Barriers to Discharge: Patient is a transfer from [facility] due to chest pain, abdominal pain and SOB. Cardiology following and plan for patient to go for heart cath today. Discharge dispo: pending clinical course, PT/OT ordered. OT rec SNF, PT eval pending. Diet: Dietary Orders (From admission, onward) Start Ordered 12/18/24 0001 Diet NPO Diet effective midnight Comments: Sips with medications Question: Reason for NPO: Answer: Operation/Procedure 12/17/242323 Physician Expected Discharge Date: 12/20/2024 Discharge Delays: PT Six Click Score: OT Six Click Score: 17 PT Recommendations: OT Recommendations: [facility] facility placement (possible return home with home OT if breathing/endurance improves,) New Consults: Ancillary Consults (From admission, onward) Start Ordered 12/18/24 0857 Inpatient consult to Social Work Once Provider: (Not yet assigned) Question Answer Comment Select all services needed for the patient Other Other: possible need of placement 12/18/24 0857 Therapy Orders (From admission, onward) Start Ordered 12/18/24 0857 PT eval and treat Until therapy completed Question: Reason for PT? Answer: weakness 12/18/24 0857 12/18/24 0857 OT eval and treat Until therapy completed Question: Reason for OT? Answer: weakness 12/18/24 0857NormalUniversHarrison Community Hospital30The patient is Moderately Stable - Low risk of patient condition declining or worsening The patient's goals for the shift include comfort, rest The clinical goals for the shift include VSS, Pain interventionsNormalUniversHarrison Community HospitalANESon 88-91-8576RRLS Attestation signed by Dora Sigala MD at 12/18/2024 4:08 PM Dora Sigala MD, MPH, [facility], [facility], [facility] Interventional Cardiology Pager Email: [email or web address] Patient: Gera Perdue Procedure Information Date/Time: 12/18/24 4138 Procedures: Coronary angiography Right heart cath Location: [facility] EXPERIMENTAL MECHANIC ELECTRICAL 3 / [facility] (Cath) Providers: Dora Sigala MD Clinical information reviewed: Tobacco Allergies Meds Med Hx Surg Hx OB Status Fam Hx Soc Hx Physical Exam Airway Mallampati: IV TM distance: >3 FB Neck ROM: full Cardiovascular Rhythm: regular Rate: normal Dental Pulmonary (+) rhonchi, wheezes Abdominal (+) obese Abdomen: soft Anesthesia Plan ASA 3 (Moderate sedation) Anesthetic plan and risks discussed with patient. Use of blood products discussed with patient who consented to blood products. Plan discussed with fellow and attending. Additional Equipment RequestsNormalUniversHarrison Community HospitalANTI-XA (HEPARIN LEVEL)on 68-20-3145POMZTSU UNFRACTIONATED (U/ML) IN PPP BY CHROMOGENIC METHOD0.86 IU/mLHigh0.3-0.7UnMemorial Health System Marietta Memorial HospitalComment on above: Order Comment: Check anti-Xa level every 6 hours while on heparin infusion, or per protocol.Result Comment: Rivaroxaban and Apixaban will interfere with the anti Xa assay used to monitor UFH and LMWH.Performed By: #### [id number] #### [facility] ([facility]) [address] [place], [place] [address]TJULUVS UNFRACTIONATED (U/ML) IN PPP BY CHROMOGENIC METHOD0.85 IU/mLHigh0.3-0.7UnMemorial Health System Marietta Memorial HospitalComment on above:Order Comment: Check anti-Xa level every 6 hours while on heparin infusion, or per protocol.Result Comment: Rivaroxaban and Apixaban will interfere with the anti Xa assay used to monitor UFH and LMWH.Performed By: #### [id number] #### [facility] ([facility]) [address] [place] [address]OXRKFKE UNFRACTIONATED (U/ML) IN PPP BY CHROMOGENIC METHOD0.86 IU/mLHigh0.3-0.7UnMemorial Health System Marietta Memorial HospitalComment on above:Result Comment: Rivaroxaban and Apixaban will interfere with the anti Xa assay used to monitor UFH and LMWH.Performed By: #### [id number] #### [facility] ([facility]) [address] [place] [address]KVTSC METABOLIC PANELon 55-82-5592Jyaad gap [Moles/Vol]10 mmol/L Normal7-20UnMemorial Health System Marietta Memorial HospitalComment on above:Performed By: #### [id number] ####[facility] ([facility])[address] [place] [address]Slujmde [Mass/Vol]9.0 mg/dLNormal8.6-10.3UnMemorial Health System Marietta Memorial HospitalComment on above:Performed By: #### [id number] ####[facility] ([facility])[address] [place], [place] [address]Desfhztl [Moles/Vol]103 mmol/ZCurhnc71-130FrmzfnoxwvMemorial Health System Marietta Memorial HospitalComment on above:Performed By: #### [id number] ####[facility] ([facility])[address] [place] [address]IA4 [Moles/Vol]31 mmol/LNormal 21-31UnMemorial Health System [facility]etta Memorial HospitalComment on above:Performed By: #### [id number] ####[facility] ([facility])[address] [place], [place] [address]Kgsxyzhrrc [Mass/Vol]0.72 mg/dLNormal0.60-1.20UnMemorial Health System [facility] Memorial HospitalComment on above:Performed By: #### [id number] ####[facility] ([facility])[address] [place], [place] [address]HTTJHEQTUF FILTRATION RATE ML/MIN/1.73 SQ M.MKYTXQOEQ19.0 mL/min/1.73m*2Normal>60.0UnMemorial Health System Marietta Memorial HospitalComment on above: Result Comment: The [facility]???s estimated glomerular filtration rate (eGFR) will no longer include consideration of race in its calculation. The National Kidney Foundation???s eGFR Task Force developed new recommendations for the estimation of the glomerular filtration rate in the [place] They recommend immediate implementation of the new equation refit without the race variable in all laboratories because the calculation does not include race. In addition to not including race in the calculation and reporting, it included diversity in its development, and has acceptable performance characteristics and potential consequences that do not disproportionately affect anyone group of individuals.Performed By: #### [id number] ####[facility] ([facility])[address] [place], [place] [address]Yjjqcqy [Mass/Vol]149 mg/yLLski48-781OdibklnhtyMemorial Health System Marietta Memorial HospitalComment on above:Performed By: #### [id number] ####[facility] ([facility])[address] [place], [place] [address]Zqskjfisf [Moles/Vol]4.1 mmol/L Normal3.5-5.1UnMemorial Health System Marietta Memorial HospitalComment on above:Performed By: #### [id number] ####[facility] ([facility])[address] [place] [address] Sodium [Moles/Vol]140 mmol/FNndnba184-056HwinlnmgjmMemorial Health System Marietta Memorial Hospital Comment on above:Performed By: #### [id number] ####[facility] ([facility])[address] [place], [place] [address]Vqcr nitrogen [Mass/Vol]12 mg/dLNormal7-25 [facility] HospitalComment on above:Performed By: #### [id number] ####[facility] ([facility])[address] [place], [place] [address]XBSR NITROGEN/CREATININE (MASS RATIO) IN SER/PLAS16.7NormalUniversHarrison Community HospitalComment on above:Performed By: #### [id number] ####[facility] ([facility])[address] [place] [address]XHAqb 45-47-2901Mdbgmfebgrh distribution width (RBC) [Ratio]17.6 %High11.5-15.0UnMemorial Health System Marietta Memorial HospitalComment on above:Performed By: #### [id number] #### [facility] ([facility]) [address] [address]UYTMORBFJKO MEAN CORPUSCULAR HEMOGLOBIN CONCENTRATION (G/DL) BY EOVSDAFSK55.6 g/dLLow32.0-35.0UnMemorial Health System Marietta Memorial HospitalComment on above:Performed By: #### [id number] #### [facility] ([facility] [facility] [address] [place] [address]Xvbzputhom (Bld) [Volume fraction]34.5 %Low36.0-48.0UnMemorial Health System Marietta Memorial HospitalComment on above:Performed By: #### [id number] #### [facility] ([facility]) [address] [place] [address]Rzrlgjphrj (Bld) [Mass/Vol]10.2 g/dLLow12.0-15.0UnMemorial Health System Marietta Memorial HospitalComment on above:Performed By: #### [id number] #### [facility] ([facility]) [address] [place] [address]OAR (RBC) [Entitic mass]25.7 pgLow27.0-33.0UnMemorial Health System Marietta Memorial HospitalComment on above:Performed By: #### [id number] #### [facility] ([facility]) [address] [place] [address]MCA (RBC) [Entitic vol]86.9 dCEfqwdz88.0-98.0UnMemorial Health System Marietta Memorial HospitalComment on above:Performed By: #### [id number] #### [facility] ([facility]) [address] [place] [address]ECWRNSTCE (10*3/UL) IN BLOOD AUTOMATED [id number] 10*3/uLNormal 150-400UnMemorial Health System Marietta Memorial HospitalComment on above:Performed By: #### [id number] #### [facility] ([facility]) [address] [place] [address]EXU (Bld) [#/Vol]3.97 10*6/uLNormal3.80-5.00UnMemorial Health System Marietta Memorial HospitalComment on above:Performed By: #### [id number] #### [facility] ([facility]) [address] [place] [address]NSJ (Bld) [#/Vol]7.38 10*3/uLNormal4.00-10.60UnMemorial Health System Marietta Memorial HospitalComment on above:Performed By: #### [id number] #### [facility] ([facility]) [address] [place] [address]PNGSJZAgl [id number] Attestation signed by Ed Clarke MD at 12/22/2024 7:38 AM 12/18/2024: By using the attestations below, the signing clinician agrees that I have read and verify that the documentation has been personally reviewed by me and ensure that the documentation accurately reflects the encounter. GC: I personally saw this patient on the day of the encounter, performed the dai portion(s) of the service and participated in the management and confirm the resident's documentation. Please note there may be an additional personal documentation from me. My additional comments are as follows: - Discussion with family, ongoing goals of discussion. -- Unlikely to benefit from rhythm control. Ed Clarke MD, ScM, MSc [employer] [place] Distribution Clerk Email: [email or web address] Cardiology Consult Note Reason for Consult: HPI: Gera Perdue is a 79 y.o. 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 Patient states that she had extreme shortness of breath when she woke up from her sleep on 12/17. She has been dealing with progressively worsening dyspnea on exertion and acute episode yesterday prompted her to come to the ER. She also reports associated dizziness and sputum production. She initially went to the [facility], was subsequently transferred to [facility]. Chest x-ray showed diffuse interstitial prominence and a new small left pleural effusion. During the current admission, patient was found to have elevated Troponins which peaked at 1.18 and are currently downtrending. EKGs are unremarkable for any acute ST changes and showed normal sinus rhythm. Patient denies any chest pain during admission or at presentation. Upon evaluation, patient was saturating normally on nasal cannula 4 L of oxygen. She says that her symptoms have improved since presentation. Denies any acute complaints. Cardiology ROS: Negative except as mentioned. Past Medical History She has a past medical history of COPD (chronic obstructive pulmonary disease) ([facility]) and Hypertension. Surgical History She has a past surgical history that includes Colon surgery. Social History She reports that she has never smoked. She has never used smokeless tobacco. She reports that she does not currently use alcohol. She reports that she does not currently use drugs. Family History No family history on file. Allergies Aspirin Medications Current Outpatient Medications Medication Instructions albuterol 90 mcg/actuation inhaler 2 puffs, inhalation, Every 4 hours PRN alendronate (FOSAMAX) 70 mg, oral, Weekly atorvastatin (LIPITOR) 40 mg, oral, Daily buPROPion XL (WELLBUTRIN XL) 300 mg, oral, Every morning cholecalciferol (vitamin D3) 50 mcg, oral, Daily RT clopidogrel (PLAVIX) 75 mg, oral, Daily furosemide (Lasix) 20 mg tablet 1 tablet, oral, Daily melatonin 5 mg, oral, Nightly PRN pregabalin (LYRICA) 75 mg, oral, 2 times daily Trelegy Ellipta 100-62.5-25 mcg blister with device 1 puff, inhalation, Daily RT Medications Prior to Admission Medication Sig Dispense Refill Last Dose albuterol 90 mcg/actuation inhaler Inhale 2 puffs every 4 (four) hours if needed. alendronate (Fosamax) 70 mg tablet Take 70 mg by mouth once a week. atorvastatin (Lipitor) 40 mg tablet Take 40 mg by mouth in the morning. buPROPion XL (Wellbutrin XL) 300 mg 24 hr tablet Take 300 mg by mouth in the morning. cholecalciferol, vitamin D3, 50 mcg (2,000 unit) capsule Take 50 mcg by mouth in the morning. clopidogrel (Plavix) 75 mg tablet Take 75 mg by mouth in the morning. furosemide (Lasix) 20 mg tablet Take 1 tablet by mouth in the morning. melatonin 3 mg tablet Take 5 mg by mouth if needed at bedtime for sleep. pregabalin (Lyrica) 75 mg capsule Take 75 mg by mouth two times daily. Trelegy Ellipta 100-62.5-25 mcg blister with device Inhale 1 puff in the morning. Last Recorded Vitals Patient Vitals for the past 24 hrs: BP Temp Temp src Pulse Resp SpO2 Height Weight 12/18/24 0738 -- -- -- 23 97 % -- -- 12/18/24 0737 123/73 36.2 ???C (97.2 ???F) Temporal 89 24 -- -- -- 12/18/24 0400 120/63 36.3 ???C (97.3 ???F) Temporal 89 (!) 27 100 % -- 90.4 kg (199 lb 6.4 oz) 12/18/24 0006 122/70 36.4 ???C (97.5 ???F) Temporal 93 22 95 % -- -- 12/17/24 2200 (!) 140/106 -- -- 98 21 100 % -- -- 02/20/25 2146 -- -- -- 95 20 99 % -- -- 12/17/242135 -- - (more content not included)...[facility] HospitalHPon [id number] Attestation signed by Dora Sigala MD at 12/18/2024 4:08 PM Dora Sigala MD, MPH, [facility], [facility], [facility] Interventional Cardiology Pager Email: [email or web address] H&P reviewed. The patient was examined and there are no changes to the H&P. We will proceed with coronary angiogram and right heart catheterization for reduced EF and wall motion abnormality. Procedures' details, risks and benefits discussed with the patient and she is agreeable. Her CODE STATUS is reversed and RCCA to full code for 24 hours periprocedurally. [facility] HospitalNURSNOTEon [id number] were drawn at 11:06 for anti Xa and troponin, by 1300 labs had not yet resulted, lab called and said they would investigate, lab returned call saying they were unable to find samples and would redraw, RN stated this needed to be done immediately as patient is on a heparin drip, labs were redrawn at 1356, awaiting resultsNormalUniversity University Hospitals Parma Medical CenterTROPONIN Ion 12-18-2024 Troponin I.cardiac [Mass/Vol]0.61 ng/mLCritically high0.00-0.04[facility] Medical CenterComment on above:Result Comment: M-PREVIOUS CRITICAL RESULT Previous result verified on 12/18/2024 0553 on specimen/case [id number] called with component Troponin I for procedure Troponin I with value 0.88 ng/mL. Performed By: #### [id number] #### [facility] ([facility]) [address] [place], [place] [address]Zsdbjokv I.cardiac [Mass/Vol]0.88 ng/mLCritically high0.00-0.04 [facility] HospitalComment on above:Result Comment: M-PREVIOUS CRITICAL RESULT Previous result verified on 12/18/2024 0059 on specimen/case [id number] called with component Troponin I for procedure Troponin I with value 1.18 ng/mL. Performed By: #### [id number] ####[facility] ([facility])[address] [place], [place] [address]dp [id number] patient is Moderately Stable - Low risk of patient condition declining or worsening The patient's goals for the shift include comfort The clinical goals for the shift include VSSNormalUniversHarrison Community HospitalANTI-XA (HEPARIN LEVEL)on 02-25-8850GIJXZXU UNFRACTIONATED (U/ML) IN PPP BY CHROMOGENIC METHOD0.47 IU/mLNormal0.3-0.7UnMem[facility] Comment on above:Order Comment: Check anti-Xa level every 6 hours while on heparin infusion, or per protocol.Result Comment: Rivaroxaban and Apixaban will interfere with the anti Xa assay used to monitor UFH and LMWH.Performed By: #### [id number] #### [facility] ([facility]) [address] [place], [place] [address]PYVQme 29-88-0658KWLALPRWW PARTIAL THROMBOPLASTIN TIME IN PPP BY COAGULATION ASSAY80.3 HjewkonYmcf20.0-35.0UnMem[facility] Comment on above:Result Comment: Clinical significance of the APTT is questionable in the presence of heparin.Performed By: #### [id number] #### [facility] ([facility]) [address] [place] [address]EZJXNPTLK PARTIAL THROMBOPLASTIN TIME IN PPP BY COAGULATION ASSAY74.5 RqonneqYjfb21.0-35.0UnMemorial Health System Mari[facility] Memorial HospitalComment on above:Order Comment: Baseline aPTT before initiating heparin infusion.Result Comment: Clinical significance of the APTT is questionable in the presence of heparin.Performed By: #### [id number] ####[facility] ([facility])[address] [place] [address]FQNBH METABOLIC PANELon 99-54-6620Rjwnx gap [Moles/Vol]10 mmol/LNormal7-20UnMemorial [facility] System [facility] Memorial HospitalComment on above:Performed By: #### [id number] #### [facility] ([facility]) [address] [place], [place] [address]Pcagisp [Mass/Vol]9.3 mg/dLNormal8.6-10.3UnMemorial Health System [facility] Memorial HospitalComment on above:Performed By: #### [id number] #### [facility] ([facility]) [address] [place], [place] [address]Fcprjvwx [Moles/Vol]101 mmol/WFxqesi35-688DuxygvnficMemorial Health System Marietta Memorial HospitalComment on above:Performed By: #### [id number] #### [facility] ([facility]) [address] [place], [place] [address]TT9 [Moles/Vol]32 mmol/VWmvk98-99QxyvtosivoMemorial Health System Marietta Memorial HospitalComment on above:Performed By: #### [id number] #### [facility] ([facility]) [address] [place], [place] [address]Wvzsrutfly [Mass/Vol]0.80 mg/dLNormal0.60-1.20UnMemorial Health System [facility] Memorial HospitalComment on above:Performed By: #### [id number] #### [facility] ([facility]) [address] [place], [place] [address]PPCKIAXQMD FILTRATION RATE ML/MIN/1.73 SQ M.KWOEFFXTR74.9 mL/min/1.73m*2Normal>60.0UnMemorial Health System Marietta Memorial HospitalComment on above: Result Comment: The [facility]???s estimated glomerular filtration rate (eGFR) will no longer include consideration of race in its calculation. The National Kidney Foundation???s eGFR Task Force developed new recommendations for the estimation of the glomerular filtration rate in the [place] They recommend immediate implementation of the new equation refit without the race variable in all laboratories because the calculation does not include race. In addition to not including race in the calculation and reporting, it included diversity in its development, and has acceptable performance characteristics and potential consequences that do not disproportionately affect anyone group of individuals.Performed By: #### [id number] #### [facility] ([facility]) [address] [place], [place] [address]Greklod [Mass/Vol]176 mg/gJNlre56-722TntayirlimMemorial Health System Marietta Memorial HospitalComment on above:Performed By: #### [id number] #### [facility] ([facility]) [address] [facility] [place], [place] [address]Dozbvhydz [Moles/Vol]3.4 mmol/LLow3.5-5.1UnMemorial Health System Marietta Memorial HospitalComment on above:Performed By: #### [id number] #### [facility] ([facility]) [address] [facility] [place] [address]Wlvgpq [Moles/Vol]140 mmol/KZdtwpd350-271KiwsgyreauMemorial Health System Marietta Memorial HospitalComment on above:Performed By: #### [id number] #### [facility] ([facility]) [address] [place], [place] [address]Gtyw nitrogen [Mass/Vol]12 mg/dLNormal7-25UnMemorial Health System Marietta Memorial HospitalComment on above:Performed By: #### [id number] #### [facility] ([facility]) [address] [facility] [place], [place] [address]CZZC NITROGEN/CREATININE (MASS RATIO) IN SER/PLAS15.0Normal [facility] HospitalComment on above:Performed By: #### [id number] #### [facility] ([facility]) [address] [place], [place] [address]GTY WITH AUTO DIFFERENTIALon 81-19-3220Pwcznoejw (Bld) [#/Vol] 0.01 10*3/uLNormal0.00-0.20UnMemorial Health System Mari[facility] Memorial HospitalComment on above: Performed By: #### [id number] ####[facility] ([facility])[address] [place], [place] [address]Bkmyvrqch/100 WBC (Bld)0.1 %Normal0.0-1.0UnMemorial Health System Marietta Memorial HospitalComment on above:Performed By: #### [id number] ####[facility] ([facility])[address] [place], [place] [address]Brgopidiael (Bld) [#/Vol]0.00 10*3/uL Normal0.00-0.50UnMemorial Health System Marietta Memorial HospitalComment on above:Performed By: #### [id number] ####[facility] ([facility])[address] [place] [address] Eosinophils/100 WBC (Bld)0.0 %Normal0.0-6.0Un[facility] Comment on above:Performed By: #### [id number] ####[facility] ([facility])[address] [place], [place] [address]Topsimdxmjd distribution width (RBC) [Ratio]17.7 % High11.5-15.0UnMemorial Health System Marietta Memorial HospitalComment on above:Performed By: #### [id number] ####[facility] ([facility])[address] [place] [address] ERYTHROCYTE MEAN CORPUSCULAR HEMOGLOBIN CONCENTRATION (G/DL) BY NRFUTVSVG69.8 g/dLLow32.0-35.0UnMemorial Health System [facility] Memorial HospitalComment on above:Performed By: #### [id number] ####[facility] ([facility])[address] [place], [place] [address]Cymraerftw (Bld) [Volume fraction]36.2 %Nousdh33.0-48.0UnMemorial Health System Marietta Memorial HospitalComment on above:Performed By: #### [id number] ####[facility] ([facility])[address] [place], [place] [address]Moadbnyucv (Bld) [Mass/Vol]10.8 g/dL Low12.0-15.0UnMemorial Health System Marietta Memorial HospitalComment on above:Performed By: #### [id number] ####[facility] ([facility] [place] [address] Immature granulocytes (Bld) [#/Vol]0.05 10*3/uLNormal0.00-0.20UnMemorial Health System [facility] Memorial HospitalComment on above:Performed By: #### [id number] ####[facility] ([facility])[address] [place], [place] [address]Rxrqdesi granulocytes/100 WBC (Bld)0.5 %Normal0.0-1.0UnMemorial Health System Marietta Memorial HospitalComment on above: Performed By: #### [id number] ####[facility] ([facility])[address] [place], [place] [address]Vgzohbidlmv (Bld) [#/Vol]0.67 10*3/uLLow1.20-4.00UnMemorial Health System [facility] Memorial HospitalComment on above:Performed By: #### [id number] ####[facility] ([facility])[address] [place], [place] [address]Zvomupkrlmq/100 WBC (Bld) 6.7 %Low20.0-45.0UnMemorial Health System [facility] Memorial HospitalComment on above:Performed By: #### [id number] ####[facility] ([facility])[address] [place], [place] [address]WJO (RBC) [Entitic mass]26.0 pgLow27.0-33.0UnMemorial Health System [facility] Memorial HospitalComment on above:Performed By: #### [id number] ####[facility] ([facility])[address] [place], [place] [address]VVY (RBC) [Entitic vol]87.2 fLNormal 82.0-98.0UnMemorial Health System [facility] Memorial HospitalComment on above:Performed By: #### [id number] ####[facility] ([facility])[address] [address] Monocytes (Bld) [#/Vol]0.11 10*3/uLNormal0.10-1.00UnMemorial Health [facility] Memorial HospitalComment on above:Performed By: #### [id number] ####[facility] ([facility])[address] [place] [address]Okifthzsk/100 WBC (Bld)1.1 %Low 5.0-12.0UnMemorial Health System [facility] Memorial HospitalComment on above:Performed By: #### [id number] ####[facility] ([facility] [place] [address] Neutrophils (Bld) [#/Vol]9.12 10*3/uLHigh1.60-7.60UnMemorial Health System [facility] Memorial HospitalComment on above:Performed By: #### [id number] ####[facility] ([facility])[address] [place] [address]Jyjqvtowlyd/100 WBC (Bld)91.6 %High 40.0-72.0UnMemorial Health System [facility] Memorial HospitalComment on above:Performed By: #### [id number] ####[facility] ([facility])[address] [place] [address]PPCC (PER 100 WBCS) BY AUTOMATED COUNT0.0 %Leckfy3QxegpuyxpeMemorial Health System Marietta Memorial Hospital Comment on above:Performed By: #### [id number] ####[facility] ([facility] [place] [address]YNKOXOTWS (10*3/UL) IN BLOOD AUTOMATED [id number] 10*3/xAKxyrtt687-332NmblfrnpmmMemorial Health System Marietta Memorial HospitalComment on above: Performed By: #### [id number] ####[facility] ([facility])[address] [place] [address]KJF (Bld) [#/Vol]4.15 10*6/uLNormal3.80-5.00UnMemorial Health System [facility] Memorial HospitalComment on above:Performed By: #### [id number] ####[facility] ([facility])[address] [place] [address]EDP (Bld) [#/Vol]9.96 10*3/uLNormal4.00-10.60UnMemorial Health System [facility] Memorial HospitalComment on above: Performed By: #### [id number] ####[facility] ([place] [address]XOSCGJlf 37-34-7488ALECSQZvab of arrival (squad #, walk in, police, etc): EMS-transfer from another hosptial Chief complaint(s): Chest pain, abdominal pain, shortness of breath Arrival Note (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 At the hospital she was found to have a Nstemi per their facility and was transferred to [facility] under cardiologyNormalUniversity of [facility] HospitalPROVon [id number] of Present Illness Chief Complaint Patient presents with Chest Pain Abdominal Pain Shortness of Breath Initial evaluation completed by Dr. Interiano at 8:16 PM. Gera Perdue is a 79 y.o. female presenting to the ED with c/o Chest Pain, Abdominal Pain, SOB. Patient arrives via EMS-transfer from another hospital. Patient was noted to have an NSTEMI at the other facility and is being monitored by [facility] cardiology. Patient currently is denying chest pain. Patient has a medical hx of COPD. Patient is currently on a heparin drip. 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 Abdominal Pain Shortness of Breath Associated symptoms include abdominal pain and chest pain. Mondamin Coma Scale Score: 15 History No past medical history on file. No past surgical history on file. No family history on file. Social History Tobacco Use Smoking status: Not on file Smokeless tobacco: Not on file Substance Use Topics Alcohol use: Not on file Drug use: Not on file Review of Systems Review of Systems Respiratory: Positive for shortness of breath. Cardiovascular: Positive for chest pain. Gastrointestinal: Positive for abdominal pain. Physical Exam ED Triage Vitals Temp Pulse Resp BP -- -- -- -- SpO2 Temp src Heart Rate Source Patient Position -- -- -- -- BP Location FiO2 (%) -- -- Physical Exam Vitals and nursing note reviewed. Constitutional: General: She is not in acute distress. Appearance: Normal appearance. HENT: Head: Normocephalic and atraumatic. Eyes: Extraocular Movements: Extraocular movements intact. Conjunctiva/sclera: Conjunctivae normal. Pupils: Pupils are equal, round, and reactive to light. Cardiovascular: Rate and Rhythm: Normal rate and regular rhythm. Pulmonary: Effort: Pulmonary effort is normal. Breath sounds: Normal breath sounds. Abdominal: General: Abdomen is flat. Palpations: Abdomen is soft. Tenderness: There is no abdominal tenderness. Musculoskeletal: General: Normal range of motion. Cervical back: Normal range of motion and neck supple. Right lower leg: No edema. Left lower leg: No edema. Skin: General: Skin is warm and dry. Capillary Refill: Capillary refill takes less than 2 seconds. Findings: No rash. Neurological: General: No focal deficit present. Mental Status: She is alert and oriented to person, place, and time. Procedures ED Course & MDM Diagnoses as of 12/17/24 2016 NSTEMI (non-ST elevated myocardial infarction) ([facility]) Medical Decision Making I, Richard ronquilloibanaly, documented on behalf of Dr. Intreiano. Chief complaint Chest Pain, Abdominal Pain, SOB Differential Diagnosis includes but is not limited to NSTEMI. Plan of Care: Magnesium, Protime-INR, Troponin, BMP, APTT, CBC Attestation: Provider Statement MARIA D: Provider Statement 2nd Scribe. By electronically signing this emergency patient record, the Emergency Physician/NUCLEAR MEDICINE MEDICAL DIRECTOR/PA-C attests that all entries made into the electronic medical record by the scribe prior to the Physician/NUCLEAR MEDICINE MEDICAL DIRECTOR/PA-C signature reflect an accurate accounting of the evaluation and care rendered by that Emergency Physician/NUCLEAR MEDICINE MEDICAL DIRECTOR/PA-C. The Emergency Physician/NUCLEAR MEDICINE MEDICAL DIRECTOR/PA-C assumes full responsibility for those entries. The Emergency Physician/NUCLEAR MEDICINE MEDICAL DIRECTOR/PA-C also attests that any patient testing or treatment that was instituted by nursing staff. Prasad Interiano DO 12/17/24 2347NormalUniversHarrison Community HospitalMAGNESIUMon 12-17-2024 Magnesium [Mass/Vol]1.9 mg/dLNormal1.9-2.7UnMemorial [facility] Comment on above:Performed By: #### [id number] ####[facility] ([facility])[address] [place], [place] [address]XWUHSGZ-EUKpv 51-06-5008AEW IN PPP BY COAGULATION ASSAY1.63Hngqvo7.90-1.10UnMemorial Health System Marietta Memorial HospitalComment on above: Result Comment: ACCCP RECOMMENDED INR FOR WARFARIN THERAPY CONDITION INR PROPHYLAXIS OF VENOUS THROMBOSIS 2-3 (HIGH-RISK SURGERY) TREATMENT OF VENOUS THROMBOSIS 2-3 TREATMENT OF PULMONARY EMBOLISM 2-3 PREVENTION OF SYSTEMIC EMBOLISM: 2-3 ACUTE MYOCARDIAL INFARCTION TISSUE HEART VALVES VALVULAR HEART DISEASE ATRIAL FIBRILLATION RECURRENT SYSTEMIC EMBOLISM MECHANICAL HEART VALVE 2.5-3.5 FROM: ORAL ANTICOAGULANTS. MECHANISM OF ACTION, CLINICAL EFFECTIVENESS, AND OPTIMAL THERAPEUTIC RANGE. CHEST 1995;108:231S-246S.Performed By: #### [id number] #### [facility] [employer]) [address] [place], [place] [address]VAPGDMQUUKC TIME (PT) IN PPP BY COAGULATION ASSAY14.0 Seconds Pfqvgd58.3-14.8UnMemorial Health System Marietta Memorial HospitalComment on above:Performed By: #### [id number] #### [facility] [employer] BranchREUN[facility]) [address] [place], [place] [address]KSNNLRDB Ion 82-73-7580Hqkxeysc I.cardiac [Mass/Vol]1.18 ng/mL Critically high0.00-0.04UnMemorial Health System Marietta Memorial HospitalComment on above: Result Comment: M-PREVIOUS CRITICAL RESULT Previous result verified on 12/17/20242144 on specimen/case [id number] called with component Troponin I for procedure Troponin I with value 1.12 ng/mL. Performed By: #### [id number] ####[facility] (BEAKER)[address] [place], [place] [address]Lrrhmogf I.cardiac [Mass/Vol]1.12 ng/mLCritically high 0.00-0.04UnMemorial Health System Marietta Memorial HospitalComment on above:Result Comment: M- TROPONIN INITIAL CRITICAL HIGH; RESPUN AND RETESTEDPerformed By: #### [id number] ####[facility] (BEAKER)[address] [place], [place] [address]Rpqyr Cultureon 72-97-3214Yyippyhj identified Cx Nom (U)<9,000 colonies/ml mixed bacterial skin contaminants 2 Days PERFORMED BY: [place] [address] PATHOLOGIST [employer] REVIEWER HYUN MCKINNEY M.D.NormalThe Onslow [facility] Hospital Physician GroupComment on above: Performed By: #### CUU #### [place] [address] USAUrine cultureOrdered By: Gustavo Hogan on 12-14-2024 Bacteria identified Cx Nom (U)Urine cultureBrecksville [facility] URINE CULTURE, ROUTINEon 36-39-7157Cjevhkcm identified Cx Nom (U) Urine Culture, Routine [facility] HealthcareBacteria identified Cx Nom (U)Greater than 2 organisms recovered, none predominant. Please submitNOMS HealthcareBacteria identified Cx Nom (U) another sample if clinically indicated.[facility] HealthcareBacteria identified Cx Nom (U)Greater than 100,000 colony forming units per mLNOMS HealthcareBacteria identified Cx Nom (U)Performed at: - [facility] HealthcareBacteria identified Cx Nom (U)[address] [place], [place] [id number] Healthcare Bacteria identified Cx Nom (U)Home Care Giver: Jamil Giraldo PhD, Phone: [phone] HealthcareCLINISYNCNOMS HealthcareURINE CULTURE, ROUTINEon 97-97-8101Wekqdqgm identified Cx Nom (U) Urine Culture, Routine [facility] HealthcareBacteria identified Cx Nom (U)Mixed urogenital floraNONH HealthcareBacteria identified Cx Nom (U)10,000-25,000 colony forming units per mLNOMS HealthcareBacteria identified Cx Nom (U)Performed at: - [facility] NOMS HealthcareBacteria identified Cx Nom (U)[address] [place], [place] [id number] HealthcareBacteria identified Cx Nom (U)Home Care Giver: Jamil Giraldo PhD, Phone: [phone] HealthcareCLINISYNCNOMS HealthcareXR CHEST 2 VIEWSon [id number] CHEST 2 VIEWSFINDINGS: Comparison April 26, 2023, February 19, 2024. New small left side pleural effusion. Diffuse interstitial prominence, scarring associate with the cardiac apex. No parenchymal consolidation. Minimal left lower lobe volume loss. Mild biventricular enlargement. Calcified aortic knob. IMPRESSION: Small left- sided effusion, underlying COPD/interstitial lung disease changes. TRANSCRIBED BY: ELECTRONICALLY SIGNED BY: Rodriguez Winslow MDNormalNot AvailableCT CHEST WO CONTon [id number] CHEST WO CONTCT CHEST WO CONT STUDY: CT chest without contrast CLINICAL HISTORY: Shortness of breath; COPD exacerbation (CMS-HCC); Pneumonia of right lower lobe due to infectious organism COMPARISON: 02/19/2024 TECHNIQUE: CT chest was performed utilizing 5 mm axial reconstructions without contrast. Coronal and sagittal reformatted images were obtained and reviewed. Automated exposure control was utilized. Computer aided detection for pulmonary nodules was performed utilizing [employer] software. FINDINGS: No pleural or pericardial effusion. [...] by Ryan Blake MD on 05/01/2024 9:36 AMNormalProMedica Riverside County Regional Medical CenterBLOOD UREA NITROGENon 23-02-7829Wbyz nitrogen [Mass/Vol]20 mg/dLNormal 5-27ProMission Trail Baptist HospitalComment on above:Performed By: #### CBCRaza, BMP #### [facility] ([id number]) [address] [place] [address] 48271DSW AND AUTO DIFFon 18-60-8246KQOAXCFA BASOPHIL0.0 X10E9/L Normal0.0-0.2ProMedOlympia Medical CenterComment on above:Performed By: #### CBCA, BMP #### [facility] ([id number]) [address] [place] [address] 73258DPEFSIRE NEUTROPHIL7.1 X10E9/LHigh1.5-6.6C[facility] Mercy HospitalComment on above:Performed By: #### CBCRaza, BMP #### [facility] ([id number]) [address] [place] [address] 52680Hxlxcwxvr/100 WBC (Bld)0.4 %NormalCleveland Clinic Mercy Hospital Comment on above:Performed By: #### CBCRaza, BMP #### [facility] ([id number]) [address] [place] [address] 23037Rggkprnbalc (Bld) [#/Vol]0.3 10*3/uLNormal0.0-0.4C[facility] HospitalComment on above:Performed By: #### CBCA, BMP #### [facility] ([id number]) [address] [place] [address] 70219Llvmdeamvuh/100 WBC (Bld)2.8 %NormalCleveland Clinic Mercy Hospital Comment on above:Performed By: #### CBCA, BMP #### [facility] ([id number]) [address] [place] [address] 55105Rfzdaznyfku distribution width (RBC) [Ratio]19.0 %High11.5-15.0 [facility] HospitalComment on above:Performed By: #### CBCA, BMP #### [facility] ([id number]) [address] [place] [address] 41017Ygiweqrbsb (Bld) [Volume fraction]27.8 %Mcd00-98JeqEvlokcMission Trail Baptist HospitalComment on above:Performed By: #### CBCA, BMP #### [facility] ([id number]) [address] [place] [address] 16578Xnvbklbbuq (Bld) [Mass/Vol]9.0 g/dLLow11.7-15.5PThe Christ HospitalComment on above:Performed By: #### CBCA, BMP #### [facility] ([id number]) [address] [place] [address] 75930Fakxkghhyex (Bld) [#/Vol]3.2 10*3/uLNormal1.0-3.5PThe Christ HospitalComment on above:Performed By: #### CBCA, BMP #### [facility] ([id number]) [address] [place] [address] 04685Aqjsjufgnbn/100 WBC (Bld)27.2 %NormalCleveland Clinic Mercy Hospital Comment on above:Performed By: #### CBCA, BMP #### [facility] ([id number]) [address] [place] [address] 53947THJ (RBC) [Entitic mass]24.5 byIhv93-86IptMlkmpwMission Trail Baptist HospitalComment on above:Performed By: #### CBCA, BMP #### [facility] ([id number]) [address] [place] [address] 87781HRTB (RBC) [Mass/Vol]32.3 g/nRHinslk65-45CywIqsahk [facility]remont HospitalComment on above:Performed By: #### CBCA, BMP #### [facility] ([id number]) [address] [place] [address] 35532AHS (RBC) [Entitic vol]76 eKAax19-339PnfRcneevCleveland Clinic Mercy Hospital Comment on above:Performed By: #### CBCRaza, BMP #### [facility] ([id number]) [address] [place] [address] 15840Bcflaspjj (Bld) [#/Vol]1.0 10*3/uLHigh0-0.9C[facility] Clinic Mercy HospitalComment on above:Performed By: #### CBCA, BMP #### [facility] ([id number]) [address] [place] [address] 92831Iwkobhvro/100 WBC (Bld)8.4 %NormalCleveland Clinic Mercy Hospital Comment on above:Performed By: #### CBCA, BMP #### [facility] ([id number]) [address] [place] [address] 18596Jogtmlimgfq/100 WBC (Bld)61.2 %[facility] Comment on above:Performed By: #### CBCA, BMP #### [facility] ([id number]) [address] [place] [address] 39923Ltgfbbdz mean volume (Bld) [Entitic vol]6.8 fLLow7-12PThe Christ HospitalComment on above:Performed By: #### CBCA, BMP #### [facility] ([id number]) [address] [place] [address] 53132Kphzonoeq (Bld) [#/Vol]353 10*3/sZPxtmnb774-615NypMkmzpeCleveland Clinic Mercy HospitalComment on above:Performed By: #### CBCA, BMP #### [facility] ([id number]) [address] [place] [address] 68326RKD COUNT3.67 X10E12/LLow3.80-5.20[facility] Comment on above:Performed By: #### CBCA, BMP #### [facility] ([id number]) [address] [place] [address] 02921XDZ (Bld) [#/Vol]11.7 10*3/uLHigh4.0-11.0[facility] HospitalComment on above:Performed By: #### GILLIAN BMP #### [facility] ([id number]) [address] [place] [address] 49560BPELRCOTIQqd 64-91-3391Nmumsaipuy [Mass/Vol]1.16 mg/dLHigh 0.40-1.00ProMission Trail Baptist HospitalComment on above:Result Comment: METHOD TRACEABLE TO IDMS STANDARDPerformed By: #### SANTOSH FRENCH #### [facility] ([id number]) [address] [place] [address] 33436ISL/1.73 sq M.predicted among non-blacks MDRD (S/P/Bld) [Vol rate/Area]48 mL/min/{1.73_m2}Low>59ProMission Trail Baptist HospitalComment on above: Result Comment: Reported eGFR is based on the CKD-EPI 2020 equation that does not use a race coefficient.Performed By: #### GILLIAN, BMP #### [facility] ([id number]) [address] [place] [address] 85172HLOJMEGKUWVLss 93-95-8944Pdeho gap [Moles/Vol]4 mmol/LLow5-15 ProMKaiser Permanente Medical CenterComment on above:Performed By: #### GILLIAN, BMP #### [facility] ([id number]) [address] [place] [address] 02035Xzuqqomw [Moles/Vol]106 mmol/AWipquh96-460VjhOfoigaMission Trail Baptist HospitalComment on above:Performed By: #### GILLIAN, BMP #### [facility] ([id number]) [address] [place] [address] 22155FW9 [Moles/Vol]25 mmol/FOkduyj22-84DmwFivmxtThe Christ Hospital Comment on above:Performed By: #### GILLIAN, BMP #### [facility] ([id number]) [address] [place] [address], [place] [address]Bksofcszf [Moles/Vol]4.0 mmol/LNormal3.5-5.0ProMission Trail Baptist HospitalComment on above:Performed By: #### GILLIAN, BMP #### [facility] ([id number]) [address] [place] [address], [place] [address]Msonap [Moles/Vol]135 mmol/JIrwcvj547-010IlpOcatmc Fremont HospitalComment on above:Performed By: #### GILLIAN, BMP #### [facility] ([id number]) [address] [place] [address], [place] [address]OAFEG UREA NITROGENon 17-02-2548Qsiq nitrogen [Mass/Vol]19 mg/dLNormal5-27ProMission Trail Baptist HospitalComment on above:Performed By: #### GILLIAN, BMP #### [facility] ([id number]) [address] [place] [address], [place] [address]RKE AND AUTO DIFFon 69-49-4607QVAQLGBQ BASOPHIL0.1 X10E9/L Normal0.0-0.2PThe Christ HospitalComment on above:Performed By: #### GILLIAN, BMP #### [facility] ([id number]) [address] [place] [address] 77567TXASNAAR NEUTROPHIL4.2 X10E9/LNormal1.5-6.6ProMission Trail Baptist HospitalComment on above:Performed By: #### GILLIAN, BMP #### [facility] ([id number]) [address] [place] [address] 18060Xxlkmwlhl/100 WBC (Bld)1.1 %NormalCleveland Clinic Mercy Hospital Comment on above:Performed By: #### GILLIAN, BMP #### [facility] ([id number]) [address] [place] [address] 32212Ttmalrxzxro (Bld) [#/Vol]0.4 10*3/uLNormal0.0-0.4C[facility] Mer[facility] HospitalComment on above:Performed By: #### GILLIAN, BMP #### [facility] ([id number]) [address] [place] [address] 57033Ghyodhdkvrk/100 WBC (Bld)4.0 %NormalProMission Trail Baptist Hospital Comment on above:Performed By: #### GILLIAN, BMP #### [facility] ([id number]) [address] [place] [address] 49377Sdtmqckvlly distribution width (RBC) [Ratio]18.5 %High11.5-15.0 ProMKaiser Permanente Medical CenterComment on above:Performed By: #### GILLIAN, BMP #### [facility] ([id number]) [address] [place] [address] 47055Ghlkouddwa (Bld) [Volume fraction]28.4 %Ahh76-71WakHsosohCleveland Clinic Mercy HospitalComment on above:Performed By: #### GILLIAN, BMP #### [facility] ([id number]) [address] [place] [address] 30570Lsopbbstbq (Bld) [Mass/Vol]9.4 g/dLLow11.7-15.5PThe Christ HospitalComment on above:Performed By: #### GILLIAN, BMP #### [facility] ([id number]) [address] [place] [address] 74841Jyrfdntkgyx (Bld) [#/Vol]3.3 10*3/uLNormal1.0-3.5PThe Christ HospitalComment on above:Performed By: #### CBCRaza, BMP #### [facility] ([id number]) [address] [place] [address] 19365Ijvlmtreulo/100 WBC (Bld)37.1 %[facility] Comment on above:Performed By: #### CBCA, BMP #### [facility] ([id number]) [address] [place] [address] 66780KVP (RBC) [Entitic mass]24.9 nhKcu67-22NaxXarggpCleveland Clinic Mercy HospitalComment on above:Performed By: #### CBCA, BMP #### [facility] ([id number]) [address] [place] [address] 96217EWVP (RBC) [Mass/Vol]33.0 g/lBYagcxt03-31JhiZbcfhqCleveland Clinic Mercy HospitalComment on above:Performed By: #### CBCA, BMP #### [facility] ([id number]) [address] [place] [address] 55747FRR (RBC) [Entitic vol]76 wCBfa66-134EwpBwecpnCleveland Clinic Mercy Hospital Comment on above:Performed By: #### CBCA, BMP #### [facility] ([id number]) [address] [place] [address] 21790Sartgpyzl (Bld) [#/Vol]1.0 10*3/uLHigh0-0.9[facility] HospitalComment on above:Performed By: #### CBCA, BMP #### [facility] ([id number]) [address] [place] [address] 31526Ebnfjnqtz/100 WBC (Bld)10.9 %[facility] Comment on above:Performed By: #### CBCA, BMP #### [facility] ([id number]) [address] [place] [address] 29830Gnwzlxykgwx/100 WBC (Bld)46.9 %[facility] Comment on above:Performed By: #### CBCA, BMP #### [facility] ([id number]) [address] [place] [address] 56292Opvfrsrt mean volume (Bld) [Entitic vol]6.7 fLLow7-12ProMedOlympia Medical CenterComment on above:Performed By: #### GILLIAN, BMP #### [facility] ([id number]) [address] [place] [address] 18825Lglpexnpw (Bld) [#/Vol]367 10*3/aGDqbree255-653AprGjbpzg [facility] HospitalComment on above:Performed By: #### GILLIAN, BMP #### [facility] ([id number]) [address] [place] [address] 33742DDE COUNT3.76 X10E12/LLow3.80-5.20[facility] Comment on above:Performed By: #### GILLIAN, BMP #### [facility] ([id number]) [address] [place] [address] 36793LVM (Bld) [#/Vol]9.0 10*3/uLNormal4.0-11.0[facility] HospitalComment on above:Performed By: #### GILLIAN, BMP #### [facility] ([id number]) [address] [place] [address] 32605FYFKEEPBFDeg 20-65-8472Wuztotzqme [Mass/Vol]1.09 mg/dLHigh 0.40-1.00[facility] HospitalComment on above:Result Comment: METHOD TRACEABLE TO IDMS STANDARDPerformed By: #### GILLIAN, BMP #### [facility] ([id number]) [address] [place] [address] 83446UQM/1.73 sq M.predicted among non-blacks MDRD (S/P/Bld) [Vol rate/Area]52 mL/min/{1.73_m2}Low>59ProMission Trail Baptist HospitalComment on above: Result Comment: Reported eGFR is based on the CKD-EPI 2020 equation that does not use a race coefficient.Performed By: #### GILLIAN, BMP #### [facility] ([id number]) [address] [place] [address] 42607XZGSPPZGUYTYor 67-45-4630Hvgop gap [Moles/Vol]8 mmol/LNormal 5-15ProMission Trail Baptist HospitalComment on above:Performed By: #### GILLIAN, BMP #### [facility] ([id number]) [address] [place] [address] 91467Ltygqxzt [Moles/Vol]107 mmol/EBrihtw82-659KaqTndyrvCleveland Clinic Mercy HospitalComment on above:Performed By: #### GILLIAN, BMP #### [facility] ([id number]) [address] [place] [address] 12167OH5 [Moles/Vol]24 mmol/VZytywm97-30DdsVocwcrThe Christ Hospital Comment on above:Performed By: #### GILLIAN, BMP #### [facility] ([id number]) [address] [place] [address] 01838Xcbtixkuc [Moles/Vol]3.8 mmol/LNormal3.5-5.0[facility] HospitalComment on above:Performed By: #### GILLIAN, BMP #### [facility] ([id number]) [address] [place] [address] 06880Usnjmj [Moles/Vol]139 mmol/FKyrehu406-431CxvZhcqah [facility] HospitalComment on above:Performed By: #### GILLIAN, BMP #### [facility] ([id number]) [address] [place] [address] 57933JHPRS UREA NITROGENon 95-65-7230Joxd nitrogen [Mass/Vol]20 mg/dLNormal5-27ProMission Trail Baptist HospitalComment on above:Performed By: #### GILLIAN, BMP #### [facility] ([id number]) [address] [place] [address], [place] [address]MRR AND AUTO DIFFon 24-80-0550UHQULIEO BASOPHIL0.1 X10E9/L Normal0.0-0.2PThe Christ HospitalComment on above:Performed By: #### CBCA, BMP #### [facility] ([id number]) [address] [place] [address] 27914KSEVQPKW NEUTROPHIL4.8 X10E9/LNormal1.5-6.6[facility] HospitalComment on above:Performed By: #### CBCA, BMP #### [facility] ([id number]) [address] [place] [address] 47501Zsgsdpstb/100 WBC (Bld)0.7 %NormalCleveland Clinic Mercy Hospital Comment on above:Performed By: #### CBCA, BMP #### [facility] ([id number]) [address] [place] [address] 99766Lnsiqfqeect (Bld) [#/Vol]0.2 10*3/uLNormal0.0-0.4[facility] HospitalComment on above:Performed By: #### CBCA, BMP #### [facility] ([id number]) [address] [place] [address] 72262Mwmrtxgythd/100 WBC (Bld)2.5 %NormalCleveland Clinic Mercy Hospital Comment on above:Performed By: #### CBCA, BMP #### [facility] ([id number]) [address] [place] [address] 99406Dpdacregnzq distribution width (RBC) [Ratio]18.6 %High11.5-15.0 [facility] HospitalComment on above:Performed By: #### CBCA, BMP #### [facility] ([id number]) [address] [place] [address] 37681Ljgtbafaet (Bld) [Volume fraction]28.2 %Obj81-80LcnDbtlekCleveland Clinic Mercy HospitalComment on above:Performed By: #### CBCRaza, BMP #### [facility] ([id number]) [address] [place] [address] 29176Mnoxhtmqan (Bld) [Mass/Vol]9.1 g/dLLow11.7-15.5PThe Christ HospitalComment on above:Performed By: #### CBCRaza, BMP #### [facility] ([id number]) [address] [place] [address] 69797Twbkjsqzvry (Bld) [#/Vol]3.2 10*3/uLNormal1.0-3.5PThe Christ HospitalComment on above:Performed By: #### CBCRaza, BMP #### [facility] ([id number]) [address] [place] [address] 61240Eeeysgwhxha/100 WBC (Bld)34.4 %NormalCleveland Clinic Mercy Hospital Comment on above:Performed By: #### CBCRaza, BMP #### [facility] ([id number]) [address] [place] [address] 58098LNI (RBC) [Entitic mass]24.5 zmMgc16-08CkiDquccaCleveland Clinic Mercy HospitalComment on above:Performed By: #### CBCA, BMP #### [facility] ([id number]) [address] [place] [address] 15630EIBD (RBC) [Mass/Vol]32.4 g/pUUwdjbf42-90UxdIznhqtCleveland Clinic Mercy HospitalComment on above:Performed By: #### CBCA, BMP #### [facility] ([id number]) [address] [place] [address] 59647XDY (RBC) [Entitic vol]76 zXEey87-515DcqSzckrfCleveland Clinic Mercy Hospital Comment on above:Performed By: #### CBCA, BMP #### [facility] ([id number]) [address] [place] [address] 13234Bfmkvtxsz (Bld) [#/Vol]1.0 10*3/uLHigh0-0.9C[facility] Mercy HospitalComment on above:Performed By: #### CBCRaza, BMP #### [facility] ([id number]) [address] [place] [address] 32743Cvwfqxxrw/100 WBC (Bld)11.1 %[facility] Comment on above:Performed By: #### CBCRaza, BMP #### [facility] ([id number]) [address] [place] [address], [place] [address]Qegmuvqhnak/100 WBC (Bld)51.3 %[facility] Comment on above:Performed By: #### CBCRaza, BMP #### [facility] ([id number]) [address] [place] [address] 46509Dvvrzcnd mean volume (Bld) [Entitic vol]6.9 fLLow7-12ProMed[facility] County Regional Medical CenterComment on above:Performed By: #### CBCA, BMP #### [facility] ([id number]) [address] [place] [address] 51538Ymfunpojd (Bld) [#/Vol]319 10*3/hXLuypfm792-896AagKgaowg [facility] HospitalComment on above:Performed By: #### CBCA, BMP #### [facility] ([id number]) [address] [place] [address], [place] 34319OCV COUNT3.72 X10E12/LLow3.80-5.20[facility] Comment on above:Performed By: #### CBCA, BMP #### [facility] ([id number]) [address] [place] [address] 52579MDD (Bld) [#/Vol]9.4 10*3/uLNormal4.0-11.0ProMission Trail Baptist HospitalComment on above:Performed By: #### GILLIAN, SANTOSH #### [facility] ([id number]) [address] [place] [address] [id number] 69-86-2853Ykyiodjjpq [Mass/Vol]1.13 mg/dLHigh 0.40-1.00ProM[address] Trail [facility] HospitalComment on above:Result Comment: METHOD TRACEABLE TO IDMS STANDARDPerformed By: #### GILLIAN, SANTOSH #### [facility] ([id number]) [address] [place] [address] 40069GLW/1.73 sq M.predicted among non-blacks MDRD (S/P/Bld) [Vol rate/Area]50 mL/min/{1.73_m2}Low>59ProM[address] Trail [facility] HospitalComment on above: Result Comment: Reported eGFR is based on the CKD-EPI 2020 equation that does not use a race coefficient.Performed By: #### GILLIAN, SANTOSH #### [facility] ([id number]) [address] [place] [address] [id number] 12-39-0085Bwdir gap [Moles/Vol]7 mmol/LNormal 5-15ProMission Trail [facility] HospitalComment on above:Performed By: #### GILLIAN, SANTOSH #### [facility] ([id number]) [address] [place] [address] 20977Swfzdvcy [Moles/Vol]107 mmol/ECkaplw61-130VlzJmgbswMission Trail Baptist HospitalComment on above:Performed By: #### GILLIAN, BMP #### [facility] ([id number]) [address] [place] [address] [id number] [Moles/Vol]25 mmol/MSeoldw06-58XwwBapkpr [facility] Comment on above:Performed By: #### GILLIAN, BMP #### [facility] ([id number]) [address] [place] [address], [place] [address]Cduunpbil [Moles/Vol]4.1 mmol/LNormal3.5-5.0ProM[address] [facility] HospitalComment on above:Performed By: #### GILLIAN, BMP #### [facility] ([id number]) [address] [place] [address], [place] [address]Kptomr [Moles/Vol]139 mmol/DBtavva264-084NpvOtueyi [facility] HospitalComment on above:Performed By: #### GILLIAN, BMP #### [facility] ([id number]) [address] [place] [address], [place] [address]RTXDA METABOLIC PANLon 07-50-9261Kphau gap [Moles/Vol]8 mmol/L Normal5-15ProM[address] Trail [facility] HospitalComment on above:Performed By: #### GILLIAN, BMP #### [facility] ([id number]) [address] [place] [address], [place] [address]Hwuwyuc [Mass/Vol]9.1 mg/dLNormal8.5-10.5PThe Christ HospitalComment on above:Performed By: #### GILLIAN, BMP #### [facility] ([id number]) [address] [place] [address], [place] [address]Hxesysdt [Moles/Vol]104 mmol/INialsd55-615KhjYszhdgMission Trail Baptist HospitalComment on above:Performed By: #### GILLIAN, BMP #### [facility] ([id number]) [address] [place] [address], [place] [address]UZ1 [Moles/Vol]26 mmol/DJrpuqp30-05JfwTmzhjyThe Christ Hospital Comment on above:Performed By: #### GILLIAN, BMP #### [facility] ([id number]) [address] [place] [address], [place] [address]Bblqebfebl [Mass/Vol]1.14 mg/dLHigh0.40-1.00ProMission Trail Baptist HospitalComment on above:Result Comment: METHOD TRACEABLE TO IDMS STANDARD Performed By: #### GILLIAN, BMP #### [facility] ([id number]) [address] [place] [address] 74781AJQ/1.73 sq M.predicted among non-blacks MDRD (S/P/Bld) [Vol rate/Area]49 mL/min/{1.73_m2}Low>59ProMission Trail Baptist HospitalComment on above: Result Comment: Reported eGFR is based on the CKD-EPI 2020 equation that does not use a race coefficient.Performed By: #### GILLIAN, BMP #### [facility] ([id number]) [address] [place] [address] 73262Kjxiwjp [Mass/Vol]101 mg/rULydo51-83VkkExpeboCleveland Clinic Mercy Hospital Comment on above:Performed By: #### GILLIAN, BMP #### [facility] ([id number]) [address] [place] [address] 04484Puvqxnaip [Moles/Vol]4.2 mmol/LNormal3.5-5.0ProMission Trail Baptist HospitalComment on above:Performed By: #### GILLIAN, BMP #### [facility] ([id number]) [address] [place] [address] 29728Wjmeao [Moles/Vol]138 mmol/VYgibea374-002ByqQndtqz [facility] HospitalComment on above:Performed By: #### GILLIAN, BMP #### [facility] ([id number]) [address] [place] [address] 00499Efnp nitrogen [Mass/Vol]21 mg/dLNormal5-27ProMission Trail Baptist HospitalComment on above:Performed By: #### GILLIAN, BMP #### [facility] ([id number]) [address] [place] [address] 34378FCA AND AUTO DIFFon 88-16-4526CCWKOHNZ BASOPHIL0.1 X10E9/L Normal0.0-0.2ProMedOlympia Medical CenterComment on above:Performed By: #### GILLIAN, BMP #### [facility] ([id number]) [address] [place] [address] 15025WPAUYEPG NEUTROPHIL4.5 X10E9/LNormal1.5-6.6ProMission Trail Baptist HospitalComment on above:Performed By: #### CBCRaza, BMP #### [facility] ([id number]) [address] [place] [address] 02719Ctflhaowz/100 WBC (Bld)0.7 %NormalCleveland Clinic Mercy Hospital Comment on above:Performed By: #### CBCRaza, BMP #### [facility] ([id number]) [address] [place] [address] 20998Xxrleirgkml (Bld) [#/Vol]0.4 10*3/uLNormal0.0-0.4ProMission Trail Baptist HospitalComment on above:Performed By: #### CBCRaza, BMP #### [facility] ([id number]) [address] [place] [address] 46453Tizbavrtkll/100 WBC (Bld)4.1 %NormalCleveland Clinic Mercy Hospital Comment on above:Performed By: #### CBCRaza, BMP #### [facility] ([id number]) [address] [place] [address] 34838Sgdbusgssks distribution width (RBC) [Ratio]18.8 %High11.5-15.0 ProMKaiser Permanente Medical CenterComment on above:Performed By: #### CBCRaza, BMP #### [facility] ([id number]) [address] [place] [address] 06695Iackbptqcs (Bld) [Volume fraction]28.0 %Mbv82-04ClqCgkkciMission Trail Baptist HospitalComment on above:Performed By: #### CBCA, BMP #### [facility] ([id number]) [address] [place] [address] 45460Tumuvoqcbd (Bld) [Mass/Vol]9.1 g/dLLow11.7-15.5PThe Christ HospitalComment on above:Performed By: #### CBCA, BMP #### [facility] ([id number]) [address] [place] [address] 92549Zgfhkaodkiu (Bld) [#/Vol]2.9 10*3/uLNormal1.0-3.5PThe Christ HospitalComment on above:Performed By: #### CBCA, BMP #### [facility] ([id number]) [address] [place] [address] 65212Eljlaeuizih/100 WBC (Bld)33.2 %NormalCleveland Clinic Mercy Hospital Comment on above:Performed By: #### CBCA, BMP #### [facility] ([id number]) [address] [place] [address] 61130JRO (RBC) [Entitic mass]24.4 dpTuo08-36DquTnajxoCleveland Clinic Mercy HospitalComment on above:Performed By: #### CBCA, BMP #### [facility] ([id number]) [address] [place] [address] 89749HLSZ (RBC) [Mass/Vol]32.3 g/yRYsqrnr73-34PrpGgsyffMission Trail Baptist HospitalComment on above:Performed By: #### CBCA, BMP #### [facility] ([id number]) [address] [place] [address] 81352EAL (RBC) [Entitic vol]76 fJNwb05-448BsvXellmkCleveland Clinic Mercy Hospital Comment on above:Performed By: #### CBCA, BMP #### [facility] ([id number]) [address] [place] [address] 88407Vzlxsevxq (Bld) [#/Vol]0.8 10*3/uLNormal0-0.9C[facility] Clinic Mercy HospitalComment on above:Performed By: #### CBCRaza, BMP #### [facility] ([id number]) [address] [place] [address] 50415Odojvrqsi/100 WBC (Bld)9.4 %[facility] Comment on above:Performed By: #### CBCRaza, BMP #### [facility] ([id number]) [address] [place] [address] 48591Uhvgcgjqfik/100 WBC (Bld)52.6 %[facility] Comment on above:Performed By: #### CBCRaza, BMP #### [facility] ([id number]) [address] [place] [address] 45016Wzwhjkvl mean volume (Bld) [Entitic vol]6.8 fLLow7-12Pro[facility] Medical CenterComment on above:Performed By: #### CBCA, BMP #### [facility] ([id number]) [address] [place] [address] 98168Oqfarpjee (Bld) [#/Vol]405 10*3/tWFpqhxn352-996TfqYcioytCleveland Clinic Mercy HospitalComment on above:Performed By: #### CBCRaza, BMP #### [facility] ([id number]) [address] [place] [address] 10257XHK COUNT3.71 X10E12/LLow3.80-5.20[facility] Comment on above:Performed By: #### CBCA, BMP #### [facility] ([id number]) [address] [place] [address] 67950RWY (Bld) [#/Vol]8.6 10*3/uLNormal4.0-11.0C[facility] Mer[facility] HospitalComment on above:Performed By: #### CBCA, BMP #### [facility] ([id number]) [address] [place] [address] 12920NNSVI UREA NITROGENon 82-81-8316Lxeu nitrogen [Mass/Vol]14 mg/dLNormal5-27[facility] HospitalComment on above:Performed By: #### CBCA, BMP #### [facility] ([id number]) [address] [place] [address], [place] [address]SXO AND AUTO DIFFon 94-57-7684CEHKMUOR BASOPHIL0.1 X10E9/L Normal0.0-0.2PThe Christ HospitalComment on above:Performed By: #### CBCA, BMP #### [facility] ([id number]) [address] [place] [address] 75352DJWJNQHA NEUTROPHIL6.8 X10E9/LHigh1.5-6.6ProMission Trail Baptist HospitalComment on above:Performed By: #### CBCA, BMP #### [facility] ([id number]) [address] [place] [address] 50614Eqhsyiynd/100 WBC (Bld)0.6 %[facility] Comment on above:Performed By: #### CBCA, BMP #### [facility] ([id number]) [address] [place] [address] 33386Seqyrbmbwqs (Bld) [#/Vol]0.4 10*3/uLNormal0.0-0.4[facility] HospitalComment on above:Performed By: #### CBCA, BMP #### [facility] ([id number]) [address] [place] [address] 54044Tgvwtyajrgk/100 WBC (Bld)3.7 %[facility] Comment on above:Performed By: #### CBCA, BMP #### [facility] ([id number]) [address] [place] [address] 44269Bujhdffkpvu distribution width (RBC) [Ratio]18.8 %High11.5-15.0 [facility] Medical CenterComment on above:Performed By: #### GILLIAN, BMP #### [facility] ([id number]) [address] [place] [address] 34918Oaewgeeabz (Bld) [Volume fraction]27.4 %Gbe29-54CoiZbetqmMission Trail Baptist HospitalComment on above:Performed By: #### GILLIAN, BMP #### [facility] ([id number]) [address] [place] [address] 97630Etwkqhkjqg (Bld) [Mass/Vol]8.8 g/dLLow11.7-15.5PThe Christ HospitalComment on above:Performed By: #### GILLIAN, BMP #### [facility] ([id number]) [address] [place] [address] 35017Qwxvukpxlci (Bld) [#/Vol]3.3 10*3/uLNormal1.0-3.5PThe Christ HospitalComment on above:Performed By: #### GILLIAN, BMP #### [facility] ([id number]) [address] [place] [address] 79865Qnxdgtibrwo/100 WBC (Bld)27.7 %NormalCleveland Clinic Mercy Hospital Comment on above:Performed By: #### GILLIAN, BMP #### [facility] ([id number]) [address] [place] [address] 02441GEI (RBC) [Entitic mass]24.7 igXef16-89HehLrtozvCleveland Clinic Mercy HospitalComment on above:Performed By: #### CBCRaza, BMP #### [facility] ([id number]) [address] [place] [address], [place] [address]EYQE (RBC) [Mass/Vol]32.3 g/fQKgmqpm78-14GdqVeuoil Stearns HospitalComment on above:Performed By: #### CBCA, BMP #### [facility] ([id number]) [address] [place] [address] 40570EMQ (RBC) [Entitic vol]77 qCWgd47-050HqpGbuxmrCleveland Clinic Mercy Hospital Comment on above:Performed By: #### CBCA, BMP #### [facility] ([id number]) [address] [place] [address] 34101Vxxujfdfq (Bld) [#/Vol]1.2 10*3/uLHigh0-0.9[facility] Mer[facility] HospitalComment on above:Performed By: #### CBCRaza, BMP #### [facility] ([id number]) [address] [place] [address] 37955Lwjomaczw/100 WBC (Bld)10.4 %NormalCleveland Clinic Mercy Hospital Comment on above:Performed By: #### CBCA, BMP #### [facility] ([id number]) [address] [place] [address] 67723Skbtrwzjoay/100 WBC (Bld)57.6 %[facility] Comment on above:Performed By: #### CBCA, BMP #### [facility] ([id number]) [address] [place] [address] 76785Rcwuxbwj mean volume (Bld) [Entitic vol]7.3 fLNormal7-12 [facility] HospitalComment on above:Performed By: #### CBCA, BMP #### [facility] ([id number]) [address] [place] [address] 07502Akcpmrwgo (Bld) [#/Vol]255 10*3/gNFjfpet162-286LfhHjzbid [facility]ont HospitalComment on above:Performed By: #### CBCA, BMP #### [facility] ([id number]) [address] [place] [address] 03734SGR COUNT3.58 X10E12/LLow3.80-5.20[facility] Comment on above:Performed By: #### GILLIAN, SANTOSH #### [facility] ([id number]) [address] [place] [address] 77772KZM (Bld) [#/Vol]11.8 10*3/uLHigh4.0-11.0ProMission Trail Baptist HospitalComment on above:Performed By: #### GILLIAN, BMP #### [facility] ([id number]) [address] [place] [address] 92965NOHTRPKYQVgd 45-53-7782Wgdeofrmkj [Mass/Vol]1.09 mg/dLHigh 0.40-1.00ProMission Trail Baptist HospitalComment on above:Result Comment: METHOD TRACEABLE TO IDMS STANDARDPerformed By: #### GILLIAN, BMP #### [facility] ([id number]) [address] [place] [address] 33592WAX/1.73 sq M.predicted among non-blacks MDRD (S/P/Bld) [Vol rate/Area]52 mL/min/{1.73_m2}Low>59ProMission [address] Baptist HospitalComment on above: Result Comment: Reported eGFR is based on the CKD-EPI 2020 equation that does not use a race coefficient.Performed By: #### GILLIAN, BMP #### [facility] ([id number]) [address] [place] [address] 67812ELGTBAMORESXmr 18-51-0324Rynye gap [Moles/Vol]7 mmol/LNormal 5-15ProMission Trail Baptist HospitalComment on above:Performed By: #### CHADWICK, 3094-0, CASTING TRUCKER, GILLIAN #### [facility] ([id number]) [address] [place] [address] 37972Quhbwegm [Moles/Vol]106 mmol/UFarbcm81-292PleMkysnqMission Trail Baptist HospitalComment on above:Performed By: #### CHADWICK, 3094-0, CASTING TRUCKER, CBCA #### [facility] ([id number]) [address] [place] [address] 06761NG8 [Moles/Vol]27 mmol/CTposqc74-78SbgEyftdqThe [facility] Hospital Comment on above:Performed By: #### ELEC, 3094-0, CASTING TRUCKER, CBCA #### [facility] ([id number]) [address] [place] [address] 31135Uddkmfpqe [Moles/Vol]4.2 mmol/LNormal3.5-5.0ProMission Trail Baptist HospitalComment on above:Performed By: #### ELEC, 3094-0, CASTING TRUCKER, CBCA #### [facility] ([id number]) [address] [place] [address] 21147Zxflqs [Moles/Vol]140 mmol/WSzcfby797-524OffFvkraq [facility] HospitalComment on above:Performed By: #### CHADWICK, 3094-0, CASTING TRUCKER, CBCA #### [facility] ([id number]) [address] [place] [address] 99448JZA AND AUTO DIFFon 51-03-8776EBBPPUHL BASOPHIL0.1 X10E9/L Normal0.0-0.2PThe Christ HospitalComment on above:Performed By: #### CBCA #### [facility] ([id number]) [address] [place] [address] 55856 #### [id number] #### [facility] ([id number]) [address] [place], [place] [address]QULUNOFU NEUTROPHIL6.2 X10E9/LNormal1.5-6.6ProMission Trail Baptist HospitalComment on above:Performed By: #### CBCA #### [facility] ([id number]) [address] [place] [address] 35486 #### 46794-8 #### [facility] ([id number]) [address], [address] [place], [place] [address]Qsktjndlu/100 WBC (Bld)0.6 %[facility] Comment on above:Performed By: #### CBCA #### [facility] ([id number]) [address] [place] [address] 21814 #### 10907-8 #### [facility] ([id number]) [address], [address] [place], [place] [address]Gtifnnvqtjx (Bld) [#/Vol]0.3 10*3/uLNormal0.0-0.4[facility] Mer[facility] HospitalComment on above:Performed By: #### CBCA #### [facility] ([id number]) [address] [place] [address] 40687 #### 62414-2 #### [facility] ([id number]) [address], [address] [place], [place] [address]Lirnicwnldi/100 WBC (Bld)2.4 %[facility] Comment on above:Performed By: #### CBCA #### [facility] ([id number]) [address] [place] [address] 29338 #### 39093-0 #### [facility] ([id number]) [address], [address] [place], [place] [address]Iozxrirkyvs distribution width (RBC) [Ratio]18.9 %High11.5-15.0 ProMKaiser Permanente Medical CenterComment on above:Performed By: #### CBCA #### [facility] ([id number]) [address] [place] [address] 89396 #### 89657-5 #### [facility] ([id number]) [address], [address] [place], [place] [address]Onieidwipl (Bld) [Volume fraction]30.3 %Dpn88-10VymAkzhkqCleveland Clinic Mercy HospitalComment on above:Performed By: #### CBCA #### [facility] ([id number]) [address] [place] [address] 00306 #### 15511-4 #### [facility] ([id number]) [address], [address] [place], [place] [address]Qjryieapdc (Bld) [Mass/Vol]9.7 g/dLLow11.7-15.5PThe Christ HospitalComment on above:Performed By: #### CBCA #### [facility] ([id number]) [address] [place] [address] 29366 #### 02764-7 #### [facility] ([id number]) [address], [address] [place], [place] [address]Sjqnaviubvx (Bld) [#/Vol]3.8 10*3/uLHigh1.0-3.5PThe Christ HospitalComment on above:Performed By: #### CBCA #### [facility] ([id number]) [address] [place] [address] 34962 #### 20787-2 #### [facility] ([id number]) [address], [address] [place], [place] [address]Crxksyuvslz/100 WBC (Bld)32.9 %NormalCleveland Clinic Mercy Hospital Comment on above:Performed By: #### CBCA #### [facility] ([id number]) [address] [place] [address] 41262 #### 72610-6 #### [facility] ([id number]) [address], [address] [place], [place] [address]WKM (RBC) [Entitic mass]24.6 wbSdk26-83TfiJlfowjCleveland Clinic Mercy HospitalComment on above:Performed By: #### CBCA #### [facility] ([id number]) [address] [place] [address] 10748 #### 26304-5 #### [facility] ([id number]) [address], [address] [place], [place] [address]OSIA (RBC) [Mass/Vol]32.1 g/wYDblpsa44-02VbgCcxknnMission Trail Baptist HospitalComment on above:Performed By: #### CBCA #### [facility] ([id number]) [address] [place] [address] 36295 #### 63757-8 #### [facility] ([id number]) [address], [address] [place], [place] [address]ZNP (RBC) [Entitic vol]77 dPYzw48-175KvyNyrsemCleveland Clinic Mercy Hospital Comment on above:Performed By: #### CBCA #### [facility] ([id number]) [address] [place] [address] 02107 #### 35148-7 #### [facility] ([id number]) [address], [address] [place], [place] [address]Omtyuqfim (Bld) [#/Vol]1.3 10*3/uLHigh0-0.9C[facility] Mercy HospitalComment on above:Performed By: #### CBCA #### [facility] ([id number]) [address] [place] [address] 57596 #### 42954-8 #### [facility] ([id number]) [address], [address] [place], [place] [address]Ntiefbjyj/100 WBC (Bld)11.0 %NormalCleveland Clinic Mercy Hospital Comment on above:Performed By: #### CBCA #### [facility] ([id number]) [address] [place] [address] 13413 #### 00857-4 #### [facility] ([id number]) [address], [address] [place], [place] [address]Xdvwwqnhkwd/100 WBC (Bld)53.1 %NormalCleveland Clinic Mercy Hospital Comment on above:Performed By: #### CBCA #### [facility] ([id number]) [address] [place] [address] 43626 #### 27148-2 #### [facility] ([id number]) [address] [place], [place] [address]Mqtuekbo mean volume (Bld) [Entitic vol]7.5 fLNormal7-12 ProMKaiser Permanente Medical CenterComment on above:Performed By: #### CBCA #### [facility] ([id number]) [address] [place] [address] 19514 #### 68151-9 #### [facility] ([id number]) [address] [place], [place] [address]Ogzhmdlvs (Bld) [#/Vol]320 10*3/fUUfksmi703-639MvnLpoygbCleveland Clinic Mercy HospitalComment on above:Performed By: #### CBCA #### [facility] ([id number]) [address] [place] [address] 23704 #### 80238-8 #### [facility] ([id number]) [address], [address] [place], [place] [address]TRG COUNT3.96 X10E12/LNormal3.80-5.20[facility] Comment on above:Performed By: #### CBCA #### [facility] ([id number]) [address] [place] [address] 81387 #### 72362-1 #### [facility] ([id number]) [address], [address] [place], [place] [address]MFN (Bld) [#/Vol]11.7 10*3/uLHigh4.0-11.0C[facility] Clinic Mercy HospitalComment on above:Performed By: #### CBCA #### [facility] ([id number]) [address] [place] [address] #### 35987-0 #### [facility] ([id number]) [address] [place], [place] [address]PNG Photometric method (Bld) [Velocity]on 21-45-0736IKL, ERYTHROCYTE SEDIMENTATION RATE43 mm/hHigh0-30[facility] Mercy HospitalComment on above:Performed By: #### CBCA #### [facility] ([id number]) [address] [place] [address] 46794 #### 79348-7 #### [facility] ([id number]) [address] [place], [place] [address]KR SWALLOW MOTILITY FUNCTIONon 18-15-0481OG SWALLOW MOTILITY FUNCTIONFL SWALLOW MOTILITY FUNCTION History:Previous abnormal swallow study. [...] by Azeem Dowell MD on 03/04/2024 10:58 AMNormalCleveland Clinic Mercy Hospital URINALYSISon 52-09-2930Ebyciognd Ql (U)NegativeNormalNEGProMission Trail Baptist HospitalComment on above:Performed By: #### UA #### [facility] ([id number]) [address] [place] [address] 908[address]KKPBV/HGBNegativeNormalNEGCleveland Clinic Mercy HospitalComment on above:Performed By: #### UA #### [facility] ([id number]) [address] [place] [address] 97284Nlnqh (U)YELLOWNormalYELLOWProMission Trail Baptist HospitalComment on above:Performed By: #### UA #### [facility] ([id number]) [address] [place] [address] 39133Myhnaup Ql (U)NegativeNormalSumma Health Comment on above:Performed By: #### UA #### [facility] ([id number]) [address] [place] [address] 41600Clpblco Ql (U)NegativeNormalNEGCleveland Clinic Mercy Hospital Comment on above:Performed By: #### UA #### [facility] ([id number]) [address] [place] [address] [phone] esterase Test strip Ql (U)NegativeNormalNEGCleveland Clinic Mercy HospitalComment on above:Performed By: #### UA #### [facility] ([id number]) [address] [place] [address] 76115Kdvgnnt Ql (U)NegativeNormalNEGCleveland Clinic Mercy Hospital Comment on above:Performed By: #### UA #### [facility] ([id number]) [address] [place] [address] 23545pF (U)6.0 [pH]Normal5.0-8.5[facility] Medical CenterComment on above:Performed By: #### UA #### [facility] ([id number]) [address] [place] [address] 67660Dpxwlht Ql (U)NegativeNormalNEGProSumma Health [facility] Campusca [facility] Comment on above:Performed By: #### UA #### [facility] ([id number]) [address] [place] [address] 34740Lpzscaui gravity (U) [Rel density]1.858Igwldi2.003-1.035 [facility] Medical CenterComment on above:Performed By: #### UA #### [facility] ([id number]) [address] [place] [address] 57207FGPBMJFKCUZLTFGjbpepCPYJXGkiEclych Fremont HospitalComment on above:Performed By: #### UA #### [facility] ([id number]) [address] [place] [address] 43786Julxkzcdrgyn Qn (U)0.2 {Jose'U}/dLNormal<1.1PThe Christ HospitalComment on above:Performed By: #### UA #### [facility] ([id number]) [address] [place] [address] 55212DVJLI CULTUREon [id number] identified Cx Nom (U)CULTURE RESULTS NO GROWTH AT <1000 CFU/mLNormalCleveland Clinic Mercy HospitalComment on above: Performed By: #### 630-4 #### [facility] ([id number]) [address], [address] [place], [place] [address]ZPJTD METABOLIC PANLon 76-98-3589Uoxai gap [Moles/Vol]9 mmol/L Normal5-15[facility] HospitalComment on above:Performed By: #### CBCA, BMP #### [facility] ([id number]) [address] [place] [address] [phone] [Mass/Vol]8.4 mg/dLLow8.5-10.5PThe Christ HospitalComment on above:Performed By: #### CBCA, BMP #### [facility] ([id number]) [address] [place] [address] 71632Yxwckxme [Moles/Vol]106 mmol/NPowakw55-868CllWngpanMission Trail Baptist HospitalComment on above:Performed By: #### GILLIAN, BMP #### [facility] ([id number]) [address] [place] [address] 94761EQ0 [Moles/Vol]27 mmol/LPwsprx95-25KunYtqhedThe Christ Hospital Comment on above:Performed By: #### GILLIAN, BMP #### [facility] ([id number]) [address] [place] [address] 28115Dgkkfcsglr [Mass/Vol]1.13 mg/dLHigh0.40-1.00[facility] HospitalComment on above:Result Comment: METHOD TRACEABLE TO IDMS STANDARD Performed By: #### GILLIAN, BMP #### [facility] ([id number]) [address] [place] [address] 07898POJ/1.73 sq M.predicted among non-blacks MDRD (S/P/Bld) [Vol rate/Area]50 mL/min/{1.73_m2}Low>59ProMission Trail Baptist HospitalComment on above: Result Comment: Reported eGFR is based on the CKD-EPI 2020 equation that does not use a race coefficient.Performed By: #### GILLIAN, BMP #### [facility] [facility] ([id number]) [address] [place] [address] 17894Yodrvet [Mass/Vol]106 mg/wVNctx29-68UnkGyszqlMission Trail [facility] Comment on above:Performed By: #### GILLIAN, BMP #### [facility] ([id number]) [address] [place] [address] 69947Qvmtpillj [Moles/Vol]3.4 mmol/LLow3.5-5.0[facility] HospitalComment on above:Performed By: #### GILLIAN, BMP #### [facility] ([id number]) [address] [place] [address], [place] [address]Ojysrv [Moles/Vol]142 mmol/UEydfyu656-506WacPdfmdv [facility] HospitalComment on above:Performed By: #### GILLIAN, BMP #### [facility] ([id number]) [address] [place] [address], [place] [address]Pnyz nitrogen [Mass/Vol]35 mg/dLHigh5-27ProMission Trail Baptist HospitalComment on above:Performed By: #### CBCRaza, BMP #### [facility] ([id number]) [address] [place] [address], [place] [address]EJB AND AUTO DIFFon 37-93-4489DTVJPNYJ BASOPHIL0.1 X10E9/L Normal0.0-0.2[facility] Medical CenterComment on above:Performed By: #### GILLIAN, BMP #### [facility] ([id number]) [address] [place] [address], [place] [address]UYLLRRVG NEUTROPHIL7.0 X10E9/LHigh1.5-6.6[facility] HospitalComment on above:Performed By: #### GILLIAN, BMP #### [facility] ([id number]) [address] [place] [address] 20608Xlmwcwoyx/100 WBC (Bld)0.6 %[facility] Comment on above:Performed By: #### CBCRaza, BMP #### [facility] ([id number]) [address] [place] [address] 76522Gxnqawwwdwg (Bld) [#/Vol]0.1 10*3/uLNormal0.0-0.4[facility] HospitalComment on above:Performed By: #### CBCA, BMP #### [facility] ([id number]) [address] [place] [address] 73637Uapdvhujzjk/100 WBC (Bld)0.5 %NormalFair[facility] Comment on above:Performed By: #### GILLIAN, BMP #### [facility] ([id number]) [address] [place] [address] 30432Ugomojcieyr distribution width (RBC) [Ratio]18.2 %High11.5-15.0 [facility] Medical CenterComment on above:Performed By: #### GILLIAN, BMP #### [facility] ([id number]) [address] [place] [address] 03428Ewstuefzlx (Bld) [Volume fraction]30.8 %Jlq57-09TvwVoljcfMission Trail Baptist HospitalComment on above:Performed By: #### GILLIAN, BMP #### [facility] ([id number]) [address] [place] [address] 52212Telmekhgrj (Bld) [Mass/Vol]10.0 g/dLLow11.7-15.5PThe Christ HospitalComment on above:Performed By: #### CBCRaza, BMP #### [facility] ([id number]) [address] [place] [address] 61413Afxjylpnwoz (Bld) [#/Vol]4.1 10*3/uLHigh1.0-3.5PThe Christ HospitalComment on above:Performed By: #### GILLIAN, BMP #### [facility] ([id number]) [address] [place] [address] 15164Eipzasxmtip/100 WBC (Bld)32.1 %[facility] Comment on above:Performed By: #### CBCRaza, BMP #### [facility] ([id number]) [address] [place] [address] 26527XNF (RBC) [Entitic mass]24.9 gcLnx20-09RdtRnbcfwCleveland Clinic Mercy HospitalComment on above:Performed By: #### CBCA, BMP #### [facility] ([id number]) [address] [place] [address] 11077GDAI (RBC) [Mass/Vol]32.3 g/yYFdwopg96-06OfhSuugsbCleveland Clinic Mercy HospitalComment on above:Performed By: #### CBCA, BMP #### [facility] ([id number]) [address] [place] [address] 83995ZQS (RBC) [Entitic vol]77 mRNok95-585QnbPuwaphCleveland Clinic Mercy Hospital Comment on above:Performed By: #### CBCA, BMP #### [facility] ([id number]) [address] [place] [address] 02306Xchjogapa (Bld) [#/Vol]1.5 10*3/uLHigh0-0.9[facility] HospitalComment on above:Performed By: #### CBCA, BMP #### [facility] ([id number]) [address] [place] [address] 40633Dcysidwzj/100 WBC (Bld)11.5 %[facility] Comment on above:Performed By: #### CBCA, BMP #### [facility] ([id number]) [address] [place] [address] 76923Kzhljtvbgul/100 WBC (Bld)55.3 %[facility] Comment on above:Performed By: #### CBCA, BMP #### [facility] ([id number]) [address] [place] [address] 41208Ocpwlmjp mean volume (Bld) [Entitic vol]7.4 fLNormal7-12 [facility] HospitalComment on above:Performed By: #### CBCA, BMP #### [facility] ([id number]) [address] [place] [address] 44625Glatrdpsm (Bld) [#/Vol]360 10*3/kDQodmjj951-558MnhMfzmrn [facility] HospitalComment on above:Performed By: #### GILLIAN, BMP #### [facility] ([id number]) [address] [place] [address], [place] [address]ILF COUNT4.00 X10E12/LNormal3.80-5.20[facility] Comment on above:Performed By: #### GILLIAN, BMP #### [facility] ([id number]) [address] [place] [address], [place] [address]JXO (Bld) [#/Vol]12.7 10*3/uLHigh4.0-11.0[facility] HospitalComment on above:Performed By: #### GILLIAN, BMP #### [facility] ([id number]) [address] [place] [address], [place] [address]QNAFF METABOLIC PANLon 77-92-1145Pwkog gap [Moles/Vol]8 mmol/L Normal5-15ProMission Trail Baptist HospitalComment on above:Performed By: #### GILLIAN, BMP #### [facility] ([id number]) [address] [place] [address], [place] [address]Aejzgdf [Mass/Vol]8.7 mg/dLNormal8.5-10.5PThe Christ HospitalComment on above:Performed By: #### GILLIAN, BMP #### [facility] ([id number]) [address] [place] [address], [place] [address]Qflyxmis [Moles/Vol]97 mmol/JZbg93-830NlgSqtjuqMission Trail Baptist HospitalComment on above:Performed By: #### CBCRaza, BMP #### [facility] ([id number]) [address] [place] [address], [place] [address]JH1 [Moles/Vol]29 mmol/SPqxaxw88-70PmdJzobvkThe Christ Hospital Comment on above:Performed By: #### CBCRaza, BMP #### [facility] ([id number]) [address] [place] [address] 98321Fabamniohc [Mass/Vol]1.22 mg/dLHigh0.40-1.00ProMission Trail Baptist HospitalComment on above:Result Comment: METHOD TRACEABLE TO IDMS STANDARD Performed By: #### GILLIAN BMP #### [facility] ([id number]) [address] [place] [address] 95998IYU/1.73 sq M.predicted among non-blacks MDRD (S/P/Bld) [Vol rate/Area]45 mL/min/{1.73_m2}Low>59ProMission Trail Baptist HospitalComment on above: Result Comment: Reported eGFR is based on the CKD-EPI 2020 equation that does not use a race coefficient.Performed By: #### GILLIAN BMP #### [facility] ([id number]) [address] [place] [address] 18957Lgdvtlr [Mass/Vol]123 mg/gSYogm10-55YznZrdchrMission Trail Baptist Hospital Comment on above:Performed By: #### GILLIAN, BMP #### [facility] ([id number]) [address] [place] [address] 71362Ylccwlnpa [Moles/Vol]4.0 mmol/LNormal3.5-5.0ProMission Trail Baptist HospitalComment on above:Performed By: #### GILLIAN, BMP #### [facility] ([id number]) [address] [place] [address] 62676Sunzca [Moles/Vol]134 mmol/GXadroc699-338TqoYlxllx [facility] HospitalComment on above:Performed By: #### GILLIAN, BMP #### [facility] ([id number]) [address] [place] [address] 74572Wspg nitrogen [Mass/Vol]35 mg/dLHigh5-27ProMission Trail Baptist HospitalComment on above:Performed By: #### GILLIAN, BMP #### [facility] ([id number]) [address] [place] [address] 15580NFU AND AUTO DIFFon 17-13-8553Obiidiwroad (Bld) [#/Vol]0.2 10*3/uLNormal0.0-0.4[facility] HospitalComment on above:Performed By: #### CBCRaza, BMP #### [facility] ([id number]) [address] [place] [address] 71350Yzamuopetbo/100 WBC (Bld)1.0 %NormalCleveland Clinic Mercy Hospital Comment on above:Performed By: #### CBCRaza, BMP #### [facility] ([id number]) [address] [place] [address] 70647Gnjpbohimug distribution width (RBC) [Ratio]18.2 %High11.5-15.0 ProMedicEstelle Doheny Eye HospitalComment on above:Performed By: #### CBCRaza, BMP #### [facility] ([id number]) [address] [place] [address] 34733Meoxdzxovi (Bld) [Volume fraction]35.1 %Wcfasl67-19AqaSleutaMission Trail Baptist HospitalComment on above:Performed By: #### CBCRaza, BMP #### [facility] ([id number]) [address] [place] [address] 40086Resvkrshku (Bld) [Mass/Vol]11.4 g/dLLow11.7-15.5PThe Christ HospitalComment on above:Performed By: #### CBCA, BMP #### [facility] ([id number]) [address] [place] [address] 47230Bvwhawgorfg (Bld) [#/Vol]4.0 10*3/uLHigh1.0-3.5PThe Christ HospitalComment on above:Performed By: #### CBCA, BMP #### [facility] ([id number]) [address] [place] [address] 40269Otxbfsxfedv/100 WBC (Bld)21.0 %[facility] Comment on above:Performed By: #### CBCA, BMP #### [facility] ([id number]) [address] [place] [address] 64706ECT (RBC) [Entitic mass]24.6 ioMvd86-45MkvJkukwvCleveland Clinic Mercy HospitalComment on above:Performed By: #### CBCA, BMP #### [facility] ([id number]) [address] [place] [address] 03740NKGG (RBC) [Mass/Vol]32.5 g/dEGkemyw28-06KpuItvwjcCleveland Clinic Mercy HospitalComment on above:Performed By: #### CBCA, BMP #### [facility] ([id number]) [address] [place] [address] 35973VVI (RBC) [Entitic vol]76 qOYha56-911LwhBgxxwyCleveland Clinic Mercy Hospital Comment on above:Performed By: #### CBCA, BMP #### [facility] ([id number]) [address] [place] [address] 50065Oowdxvkok (Bld) [#/Vol]1.4 10*3/uLHigh0-0.9[facility] HospitalComment on above:Performed By: #### CBCA, BMP #### [facility] ([id number]) [address] [place] [address] 70636Awzspoaiw/100 WBC (Bld)7.6 %[facility] Comment on above:Performed By: #### CBCA, BMP #### [facility] ([id number]) [address] [place] [address] 55957WCDIBNNZM8.0 %[facility] Doctors HospitalComment on above: Performed By: #### CBCA, BMP #### [facility] ([id number]) [address] [place] [address] 78297Wdyvzriehey (Bld) [#/Vol]13.1 10*3/uLHigh1.5-6.6[facility] HospitalComment on above:Performed By: #### GILLIAN, BMP #### [facility] ([id number]) [address] [place] [address], [place] [address]Wkwsyssx mean volume (Bld) [Entitic vol]7.2 fLNormal7-12 ProMKaiser Permanente Medical CenterComment on above:Performed By: #### GILLIAN, BMP #### [facility] ([id number]) [address] [place] [address] 75783Qpydigkxc (Bld) [#/Vol]398 10*3/cDDzpwxy942-514ZofZllscq [facility] HospitalComment on above:Performed By: #### GILLIAN, BMP #### [facility] ([id number]) [address] [place] [address], [place] [address]QUG COUNT4.63 X10E12/LNormal3.80-5.20[facility] Comment on above:Performed By: #### GILLIAN, BMP #### [facility] ([id number]) [address] [place] [address], [place] [address]EUM SJXQISIBKT16.4 %NormalProMission Trail Baptist HospitalComment on above:Performed By: #### CBCRaza, BMP #### [facility] ([id number]) [address] [place] [address] 52439SJX (Bld) [#/Vol]18.9 10*3/uLHigh4.0-11.0[facility] HospitalComment on above:Performed By: #### CBCRaza, BMP #### [facility] ([id number]) [address] [place] [address], [place] [address]XCB AND AUTO DIFFon 37-95-3533Lrlu form neutrophils/100 WBC (Bld)1.0 %NormalProMedica Cavazos HospitalComment on above:Performed By: #### ELEC #### [facility] ([id number]) [address], [address] [place], [place] [address]Szonfdfpsvr distribution width (RBC) [Ratio]18.4 %High11.5-15.0 [facility] HospitalComment on above:Performed By: #### ELEC #### [facility] ([id number]) [address], [address] [place], [place] [address]Mlzxyqbyjj (Bld) [Volume fraction]36.0 %Jmkrrf71-11HsnIlmaum Cavazos HospitalComment on above:Performed By: #### ELEC #### [facility] ([id number]) [address], [address] [place], [place] [address]Rgdqvrhvlo (Bld) [Mass/Vol]11.6 g/dLLow11.7-15.5Pro[facility] HospitalComment on above:Performed By: #### ELEC #### [facility] ([id number]) [address], [address] [place], [place] [address]VZJIYDBPIIQ9+AbnormalNONEProMedica Cavazos HospitalComment on above:Performed By: #### ELEC #### [facility] ([id number]) [address], [address] [place], [place] [address]Kywyxlllmbg (Bld) [#/Vol]4.6 10*3/uLHigh1.0-3.5Pro[facility] HospitalComment on above:Performed By: #### ELEC #### [facility] ([id number]) [address], [address] [place], [place] [address]Jfyunqslgfp/100 WBC (Bld)28.0 %NormalProMedica [facility] Hospital Comment on above:Performed By: #### ELEC #### [facility] ([id number]) [address], [address] [place], [place] [address]DBC (RBC) [Entitic mass]24.9 kxQcp28-53JjpSbhbblHocking Valley Community Hospital Comment on above:Performed By: #### ELEC #### [facility] ([id number]) [address], [address] [place], [place] [address]SFKS (RBC) [Mass/Vol]32.3 g/oMLscawj47-54OfoYfdpwl [place] HospitalComment on above:Performed By: #### ELEC #### [facility] ([id number]) [address], [address] [place], [place] [address]AOV (RBC) [Entitic vol]77 nWKqz80-919JsoPbrtgfHocking Valley Community Hospital Comment on above:Performed By: #### ELEC #### [facility] ([id number]) [address], [address] [place], [place] [address]Reudeargj (Bld) [#/Vol]1.3 10*3/uLHigh0-0.9ProAkron Children'S Hospital HospitalComment on above:Performed By: #### ELEC #### [facility] ([id number]) [address], [address] [place], [place] [address]Ieqnnswbo/100 WBC (Bld)8.0 %NormalHocking Valley Community Hospital Comment on above:Performed By: #### ELEC #### [facility] ([id number]) [address], [address] [place], [place] [address]WKVKJZGOY8.0 %NormalZanesville City Hospital HospitalComment on above: Performed By: #### ELEC #### [facility] ([id number]) [address], [address] [place], [place] [address]Slxsfjpunyl (Bld) [#/Vol]10.2 10*3/uLHigh1.5-6.6ProAkron Children'S Hospital HospitalComment on above:Performed By: #### ELEC #### [facility] ([id number]) [address], [address] [place], [place] [address]Bwrzyspn mean volume (Bld) [Entitic vol]6.8 fLLow7-12Pro[facility]ica [facility] HospitalComment on above:Performed By: #### ELEC #### [facility] ([id number]) [address], [address] [place], [place] [address]Csnedtyqr (Bld) [#/Vol]480 10*3/fZRngx901-391SulSqdurt [facility] HospitalComment on above:Performed By: #### ELEC #### [facility] ([id number]) [address] [place], [place] [address]KOX COUNT4.66 X10E12/LNormal3.80-5.20[facility] Comment on above:Performed By: #### ELEC #### [facility] ([id number]) [address] [place], [place] [address]PAO WDTUGJVMIU62.0 %NormalProMedica Cavazos HospitalComment on above:Performed By: #### ELEC #### [facility] ([id number]) [address], [address] [place], [place] [address]CPB (Bld) [#/Vol]16.3 10*3/uLHigh4.0-11.0Pro[facility]ica [facility] HospitalComment on above:Performed By: #### ELEC #### [facility] ([id number]) [address], [address] [place], [place] [address]AZAPQUEUEBHUH METABOLIC PANELon 94-95-4401Ljownrw [Mass/Vol]2.8 g/dLLow3.2-5.3Pro[facility]ica [facility] HospitalComment on above:Performed By: #### ELEC #### [facility] ([id number]) [address], [address] [place], [place] [address]KVE [Catalytic activity/Vol]61 U/EEyvqmg59-448GdnCgzipy [facility] HospitalComment on above:Performed By: #### ELEC #### [facility] ([id number]) [address], [address] [place], [place] [address]ILQ [Catalytic activity/Vol]16 U/LNormal0-31Pro[facility] HospitalComment on above:Performed By: #### ELEC #### [facility] ([id number]) [address], [address] [place], [place] [address]Awlhu gap [Moles/Vol]8 mmol/LNormal5-15[facility] Comment on above:Performed By: #### ELEC #### [facility] ([id number]) [address], [address] [place], [place] [address]WED [Catalytic activity/Vol]20 U/LNormal0-41[facility] HospitalComment on above:Performed By: #### ELEC #### [facility] ([id number]) [address], [address] [place], [place] [address]Qmjdsnxzm [Mass/Vol]0.3 mg/dLNormal0.3-1.2Pro[facility]ica [facility] HospitalComment on above:Performed By: #### ELEC #### [facility] ([id number]) [address], [address] [place], [place] [address]Niatlfd [Mass/Vol]9.1 mg/dLNormal8.5-10.5ProMedica [facility] HospitalComment on above:Performed By: #### ELEC #### [facility] ([id number]) [address], [address] [place], [place] [address]Vvkxizvk [Moles/Vol]101 mmol/OFeadck51-919UcoCvkrog [facility] HospitalComment on above:Performed By: #### ELEC #### [facility] ([id number]) [address], [address] [place], [place] [address]RU7 [Moles/Vol]29 mmol/PHumczg90-13DgyFuduxz [facility] Comment on above:Performed By: #### ELEC #### [facility] ([id number]) [address], [address] [place], [place] [address]Lytpselimr [Mass/Vol]1.16 mg/dLHigh0.40-1.00ProKettering Health Behavioral Medical CenterComment on above:Result Comment: METHOD TRACEABLE TO IDMS STANDARD Performed By: #### ELEC #### [facility] ([id number]) [address], [address] [place], [place] [address]MHU/1.73 sq M.predicted among non-blacks MDRD (S/P/Bld) [Vol rate/Area]48 mL/min/{1.73_m2}Low>59[facility] HospitalComment on above: Result Comment: Reported eGFR is based on the CKD-EPI 2020 equation that does not use a race coefficient.Performed By: #### ELEC #### [facility] ([id number]) [address], [address] [place], [place] [address]Wybpkwq [Mass/Vol]73 mg/jHKyakqt56-56KipRhqekh [facility] Comment on above:Performed By: #### ELEC #### [facility] ([id number]) [address], [address] [place], [place] [address]Skpjsvaqk [Moles/Vol]5.0 mmol/LNormal3.5-5.0ProKettering Health Behavioral Medical CenterComment on above:Performed By: #### ELEC #### [facility] ([id number]) [address], [address] [place], [place] [address]Pyhsfdp [Mass/Vol]6.2 g/dLNormal6.0-8.0ProKettering Health Behavioral Medical Center Comment on above:Performed By: #### ELEC #### [facility] ([id number]) [address], [address] [place], [place] [address]Nasytv [Moles/Vol]138 mmol/EJhuscj109-952TgkOxrxra [place] HospitalComment on above:Performed By: #### ELEC #### [facility] ([id number]) [address], [address] [place], [place] [address]Kazi nitrogen [Mass/Vol]44 mg/dLHigh5-27Pro[facility] [place] HospitalComment on above:Performed By: #### ELEC #### [facility] ([id number]) [address], [address] [place], [place] [address]Xjaobvrhjt (U) [Mass/Vol]on 65-01-6299PVLBZ CREATININE,RDM57.71 mg/dLNormalProSumma Health Akron Campusca [place] HospitalComment on above:Performed By: #### ELEC #### [facility] ([id number]) [address], [address] [place], [place] [address]QDHECRPGGko 47-69-9223Pkggnnonr [Mass/Vol]1.9 mg/dLNormal1.8-2.6 ProMtroy regional medical centera [place] HospitalComment on above:Performed By: #### ELEC #### [facility] ([id number]) [address], [address] [place], [place] [address]Yzvftywejb (U) [Osmolality]on 35-16-7905XAWRU LUXHFPRREL917 mOsm/kg J4Fsysgi136-0357MjaJuvsbp [place] HospitalComment on above:Performed By: #### ELEC #### [facility] ([id number]) [address], [address] [place], [place] [address]CXIWQPDHAOwq 56-88-1636Hkvstgsvz [Mass/Vol]5.9 mg/dLHigh2.4-4.9 ProMKettering Health Preble HospitalComment on above:Result Comment: SPECIMEN HEMOLYZED, RESULTS INCREASED SLIGHTLY HEMOLYZEDPerformed By: #### ELEC #### [facility] ([id number]) [address], [address] [place], [place] [address]Xvvzdkln Letteron [id number] Letter February 25, 2024 GERA BROUGHT [address] [place] [address] : 1945 Dear Gera Perdue , We [...] this matter. Sincerely, [facility] option #3[facility], MD, Cancer CenterURINE SODIUM,RANDOMon [id number] (U) [Moles/Vol]119 mmol/LNormalProKettering Health Behavioral Medical CenterComment on above:Performed By: #### ELEC #### [facility] ([id number]) [address], [address] [place], [place] [address]MTC CULTURE(CONCENTRATED)on 02-20-8149Teumdcbdmpazi sp identified Org specific cx Nom (Unsp spec)SPECIMEN NOTES SPECIMEN 2 AFB SMEAR NO ACID FAST BACILLI (CONCENTRATED SMEAR) CULTURE RESULTS NO ACID FAST BACILLI ISOLATED IN 8 WEEKSPremier Health Upper Valley Medical CenterComment on above:Performed By: #### ELEC #### [facility] ([id number]) [address], [address] [place], [place] [address]Cyfmqbnhbgvsf sp identified Org specific cx Nom (Unsp spec) SPECIMEN NOTES SPECIMEN 1 AFB SMEAR NO ACID FAST BACILLI (CONCENTRATED SMEAR) CULTURE RESULTS NO ACID FAST BACILLI ISOLATED IN 8 WEEKSPremier Health Upper Valley Medical CenterComment on above:Performed By: #### ELEC #### [facility] ([id number]) [address], [address] [place], [place] [address] AND DIFFon 09-38-5613BGMZ FLUID COMMENT Interpretation--------NormalProKettering Health Behavioral Medical CenterComholland hospital on above: Result Comment: Reference values for this fluid type are undefined, as fluid accumulation is considered abnormal.Performed By: #### ELEC #### [facility] ([id number]) [address], [address] [place], [place] [address]BFOHZ CLARITYHAZYNormalProMedica Cavazos HospitalComment on above:Performed By: #### ELEC #### [facility] ([id number]) [address], [address] [place], [place] [address]PHYLB COLORCOLORLESSNormalProMedica Cavazos HospitalComment on above:Performed By: #### ELEC #### [facility] ([id number]) [address], [address] [place], [place] [address]FSCAO LYMPHOCYTE6 %NormalProMedica Cavazos HospitalComment on above:Performed By: #### ELEC #### [facility] ([id number]) [address], [address] [place], [place] [address]WFPPG HSGXNIIIWQI32 %NormalProMedica Cavazos HospitalComment on above:Performed By: #### ELEC #### [facility] ([id number]) [address], [address] [place], [place] [address]PPKCE RBC CT34 /uLNormalProMedica Cavazos HospitalComment on above:Performed By: #### ELEC #### [facility] [facility] ([id number]) [address] [place], [place] [address]AUUFT SPECIMEN TYPEBRONCHOALVEOLAR LAVAGENormalProMedica [place] HospitalComment on above:Result Comment: RIGHT LUNG, LOWER LOBE SPECIMEN 2Performed By: #### ELEC #### [facility] ([id number]) [address], [address] [place], [place] [address]LYMADDSFPSU70 %NormalProMedica Cavazos HospitalComment on above: Performed By: #### ELEC #### [facility] ([id number]) [address], [address] [place], [place] [address]EOPSXTTVL CELL CT440 /uLNormalProMedica Cavazos HospitalComment on above:Performed By: #### ELEC #### [facility] ([id number]) [address], [address] [place], [place] [address]JLA AND AUTO DIFFon 60-47-2422Kladbzduwxb distribution width (RBC) [Ratio]18.3 %High11.5-15.0H[facility] Valley Community HospitalComment on above: Performed By: #### ELEC #### [facility] ([id number]) [address], [address] [place], [place] [address]Oyhbyejbqg (Bld) [Volume fraction]34.7 %Syf34-37WmtGhytkk [place] HospitalComment on above:Performed By: #### ELEC #### [facility] ([id number]) [address], [address] [place], [place] [address]Gfyjcucsmt (Bld) [Mass/Vol]11.2 g/dLLow11.7-15.5PLancaster Municipal Hospital HospitalComment on above:Performed By: #### ELEC #### [facility] ([id number]) [address], [address] [place], [place] [address]Jelkmncrccj (Bld) [#/Vol]2.8 10*3/uLNormal1.0-3.5POhioHealth Grady Memorial HospitalComment on above:Performed By: #### ELEC #### [facility] ([id number]) [address], [address] [place], [place] [address]Dtamoluedjy/100 WBC (Bld)17.0 %NormalHocking Valley Community Hospital Comment on above:Performed By: #### ELEC #### [facility] ([id number]) [address], [address] [place], [place] [address]SCU (RBC) [Entitic mass]24.6 bsFhj64-90UqaVlcfxqHocking Valley Community Hospital Comment on above:Performed By: #### ELEC #### [facility] ([id number]) [address], [address] [place], [place] [address]JKWM (RBC) [Mass/Vol]32.1 g/hCHcenca63-98VquFdlpsn [place] HospitalComment on above:Performed By: #### ELEC #### [facility] ([id number]) [address], [address] [place], [place] [address]QZI (RBC) [Entitic vol]77 hLSzi07-091ZqpNavelnHocking Valley Community Hospital Comment on above:Performed By: #### ELEC #### [facility] ([id number]) [address], [address] [place], [place] [address]Mjgqtlxnzpfskt/100 WBC (Bld)1.0 %NormalHocking Valley Community Hospital Comment on above:Performed By: #### ELEC #### [facility] ([id number]) [address], [address] [place], [place] [address]Ksavpaemp (Bld) [#/Vol]0.7 10*3/uLNormal0-0.9ProAkron Children'S Hospital HospitalComment on above:Performed By: #### ELEC #### [facility] ([id number]) [address], [address] [place], [place] [address]Ixzocbiyu/100 WBC (Bld)4.0 %NormalHocking Valley Community Hospital Comment on above:Performed By: #### ELEC #### [facility] ([id number]) [address], [address] [place], [place] [address]Otpxvvnjswv (Bld) [#/Vol]12.7 10*3/uLHigh1.5-6.6ProSumma Health Akron Campusca [place] HospitalComment on above:Performed By: #### ELEC #### [facility] ([id number]) [address], [address] [place], [place] [address]Qkylvedk mean volume (Bld) [Entitic vol]6.7 fLLow7-12ProMedica [facility] HospitalComment on above:Performed By: #### ELEC #### [facility] ([id number]) [address], [address] [place], [place] [address]Wreihtsbq (Bld) [#/Vol]479 10*3/hEYrwb527-913WikFchdsg [place] HospitalComment on above:Performed By: #### ELEC #### [facility] ([id number]) [address], [address] [place] [address]VCI COUNT4.54 X10E12/LNormal3.80-5.20[facility] Comment on above:Performed By: #### ELEC #### [facility] ([id number]) [address], [address] [place], [place] [address]APH morphology finding Nom (Bld)NORMALNormalProMedica Cavazos HospitalComment on above:Performed By: #### ELEC #### [facility] ([id number]) [address], [address] [place], [place] [address]YIT ZAGBXVCDWB71.0 %NormalProMedica Cavazos HospitalComment on above:Performed By: #### ELEC #### [facility] ([id number]) [address], [address] [place], [place] [address]PFD (Bld) [#/Vol]16.4 10*3/uLHigh4.0-11.0ProMedica [facility] HospitalComment on above:Performed By: #### ELEC #### [facility] ([id number]) [address], [address] [place], [place] [address]GOTXBTBTJXXZU METABOLIC PANELon 95-97-3820Svpbkpm [Mass/Vol]2.8 g/dLLow3.2-5.3ProMedica [facility] HospitalComment on above:Performed By: #### ELEC #### [facility] ([id number]) [address], [address] [place], [place] [address]KQW [Catalytic activity/Vol]63 U/WWmzvcf89-277SpsKidqfr [place] HospitalComment on above:Performed By: #### ELEC #### [facility] ([id number]) [address], [address] [place], [place] [address]ZQV [Catalytic activity/Vol]11 U/LNormal0-31ProMedica [place] HospitalComment on above:Performed By: #### ELEC #### [facility] ([id number]) [address], [address] [place], [place] [address]Odzqe gap [Moles/Vol]6 mmol/LNormal5-15[facility] [facility] Comment on above:Performed By: #### ELEC #### [facility] ([id number]) [address], [address] [place], [place] [address]KHI [Catalytic activity/Vol]12 U/LNormal0-41Pro[facility]ica [place] HospitalComment on above:Performed By: #### ELEC #### [facility] ([id number]) [address], [address] [place], [place] [address]Hpiikiglf [Mass/Vol]0.2 mg/dLLow0.3-1.2PTh[facility] [place] [facility] Comment on above:Performed By: #### ELEC #### [facility] ([id number]) [address], [address] [place], [place] [address]Ltzcvbf [Mass/Vol]9.1 mg/dLNormal8.5-10.5PThibodaux [facility] Center [place] HospitalComment on above:Performed By: #### ELEC #### [facility] ([id number]) [address], [address] [place], [place] [address]Pwdbvmnt [Moles/Vol]101 mmol/JFaqszy50-838ExvTqhzzp [place] HospitalComment on above:Performed By: #### ELEC #### [facility] ([id number]) [address], [address] [place], [place] [address]HV8 [Moles/Vol]31 mmol/QUpvygz78-53YkwKnmwnx [place] [facility] Comment on above:Performed By: #### ELEC #### [facility] ([id number]) [address], [address] [place], [place] [address]Jfchapwccy [Mass/Vol]1.05 mg/dLHigh0.40-1.00ProKettering Health Behavioral Medical CenterComment on above:Result Comment: METHOD TRACEABLE TO IDMS STANDARD Performed By: #### ELEC #### [facility] ([id number]) [address], [address] [place], [place] [address]IEV/1.73 sq M.predicted among non-blacks MDRD (S/P/Bld) [Vol rate/Area]54 mL/min/{1.73_m2}Low>59ProMediFulton County Health CenterComment on above: Result Comment: Reported eGFR is based on the CKD-EPI 2020 equation that does not use a race coefficient.Performed By: #### ELEC #### [facility] ([id number]) [address], [address] [place], [place] [address]Ljqychd [Mass/Vol]91 mg/bVVlivfp19-77RbcYwrwvw [facility] Comment on above:Performed By: #### ELEC #### [facility] ([id number]) [address] [address] [place], [place] [address]Tkmjfeaeo [Moles/Vol]4.5 mmol/LNormal3.5-5.0ProKettering Health Behavioral Medical CenterComment on above:Performed By: #### ELEC #### [facility] ([id number]) [address], [address] [place], [place] [address]Spvdncs [Mass/Vol]6.2 g/dLNormal6.0-8.0ProKettering Health Behavioral Medical Center Comment on above:Performed By: #### ELEC #### [facility] ([id number]) [address], [address] [place], [place] [address]Iwocuq [Moles/Vol]138 mmol/BBpzufg746-070VwwKadoec [place] HospitalComment on above:Performed By: #### ELEC #### [facility] ([id number]) [address] [place] [address], [address] [place], [place] [address]Ovfs nitrogen [Mass/Vol]33 mg/dLHigh5-27H[facility] HospitalComment on above:Performed By: #### ELEC #### [facility] ([id number]) [address] [place] [address], [address] [place], [place] [address]Knvlmjzzmc 25-66-1516CyedgdopUcsyxhYxnTzehlq [facility] Comment on above:Result Comment: [facility] [facility] [address] [place] [address] Cytology Consultation Patient Name:JEAN PERDUE:1945 (Age: 78)Gender:FTaken:02/24/2024eported:02/27/2024 16:56Physician(s):Elsa Quinonez MD ([phone])Copy To:Noe Huang [facility] Centeression #:[id number]. Rec. #:[id number]: #[id number] Final Cytologic Diagnosis 1. Right lower lobe, bronchial washing: No malignant cells identified. 2. Right lower lobe, bronchoalveolar lavage: No malignant cells identified. nxk/02/27/2024 Interpretation performed at [employer], [address] [place] [address], License number: [id number].Electronically Signed Out By Agustin Darling MD Clinical [...] labeled as Brought, BAL, right lower lobe .CytoLyt added in lab. Specimen placed in formalin at 19:00 and had a total fixation time of 6 hours. Source of Specimen 1: Right lower lobe, bronchial washing Cell block for Non-ob/gyn physician (M), Level 2 H&E, Non CIRCUITS ENGINEER ThinPrep 2: Right lower lobe, bronchoalveolar lavage Cell block for Non-ob/gyn physician (M), Level 2 H&E, Non CIRCUITS ENGINEER ThinPrep Fee Code(s): 1; 62956, 07936 2; 23545, 17563QFSKMR CULTUREon 79-37-2872Vrkpkd identified Cx Nom (Unsp spec) SPECIMEN NOTES SPECIMEN 2 FUNGAL SMEAR NO FUNGAL ELEMENTS SEEN ON CONCENTRATED SMEAR CULTURE RESULTS NO FUNGUS ISOLATED AFTER 4 WEEKSNormalProMedica Hackettstown HospitalComment on above: Performed By: #### ELEC #### [facility] ([id number]) [address] [facility] [address] [place], [place] [address]Iarwhk identified Cx Nom (Unsp spec)SPECIMEN NOTES SPECIMEN 1 FUNGAL SMEAR NO FUNGAL ELEMENTS SEEN ON CONCENTRATED SMEAR CULTURE RESULTS NO FUNGUS ISOLATED AFTER 4 WEEKSNormalProAkron Children'S Hospital HospitalComment on above: Performed By: #### ELEC #### [facility] ([id number]) [address], [address] [place], [place] [address]TZRJA RESPIRATORY CULTUREon 19-97-2205Ahgcqsad identified Respiratory culture Nom (Sput)SPECIMEN NOTES SPECIMEN 2 GRAM STAIN 1 to 9 WHITE BLOOD CELLS/LPF 1 to 9 SQUAMOUS EPITHELIAL CELLS/LPF 0 CILIATED EPITHELIAL CELLS/LPF NO ORGANISMS SEEN CULTURE RESULTS RARE NORMAL ORAL FLORANormalZanesville City Hospital HospitalComment on above:Performed By: #### ELEC #### [facility] ([id number]) [address], [address] [place], [place] [address]Zzcqtexu identified Respiratory culture Nom (Sput)SPECIMEN NOTES SPECIMEN 1 GRAM STAIN 1 to 9 WHITE BLOOD CELLS/LPF 1 to 9 SQUAMOUS EPITHELIAL CELLS/LPF 0 CILIATED EPITHELIAL CELLS/LPF NO ORGANISMS SEEN CULTURE RESULTS RARE NORMAL ORAL FLORANormalProSumma Health Akron Campusca [place] HospitalComment on above:Performed By: #### ELEC #### [facility] ([id number]) [address] [facility] [address] [place], [place] [address]J. pneumoniae DNA ELIZABETH+probe Ql (Unsp spec)on 02-24-2024M PNEUMONIAE DNA PCRSee BelowNormalProMedica Hackettstown HospitalComment on above: Result Comment: NOTE TEST RESULT FLAG UNIT REF.RANGE Specimen Source See Below SPECIMEN SOURCE (MYCPCR) Sputum MYCOPLASMA PNEUM DNA Not Detected NOT DETECTED - A negative result does not rule out the presence of PCR inhibitors in the patient specimen or assay specific nucleic acid in concentrations below the level of detection by the assay. INTERPRETIVE INFORMATION: Mycoplasma pneumoniae by PCR This test was developed and its performance characteristics determined by [facility]. It has not been cleared or approved by the [place] Food and Drug Administration. This test was performed in a CLIA certified laboratory and is intended for clinical purposes. Performed By: [facility] [address] [place] [address] Manufacturing Systems Engineer: Eduardo Lindsay MD, PhD CLIA Number: [id number] SOURCE: SputumPerformed By: #### ELEC #### [facility] ([id number]) [address] [address] [place], [place] [address]XCSZLXLPRdw 32-37-1394Ubnjcesey [Mass/Vol]2.1 mg/dLNormal1.8-2.6 [facility] HospitalComment on above:Performed By: #### ELEC #### [facility] ([id number]) [address] [place] [address], [facility] [address] [place], [place] [address]WWKCRGASCQif 40-97-8652Jrbelmcvf [Mass/Vol]4.6 mg/dLNormal 2.4-4.9ProMedica [place] HospitalComment on above:Performed By: #### ELEC #### [facility] ([id number]) [facility] [address] [place], [place] [address]Otguregivbanq IA [Mass/Vol]on 30-38-2823TGJWBMRWAJMES<0.05Normal <0.05ProMedica [place] HospitalComment on above:Result Comment: NOTE <0.50 ng/mL - Low risk of severe sepsis and/or septic shock. <2.00 ng/mL - Recommend retesting within 6-24 hours. >2.00 ng/mL - High risk of sepsis and/or septic shock.Performed By: #### ELEC #### [facility] ([id number]) [address], [address] [place], [place] [address]KBN AND AUTO DIFFon 31-70-3129Llru form neutrophils/100 WBC (Bld)1.0 %NormalProAkron Children'S Hospital HospitalComment on above:Performed By: #### ELEC #### [facility] ([id number]) [address] [address]Nwcqpbuhxsa distribution width (RBC) [Ratio]18.2 %High11.5-15.0 [facility] HospitalComment on above:Performed By: #### ELEC #### [facility] ([id number]) [address] [address] [place], [place] [address]Eevxqkjjgb (Bld) [Volume fraction]35.2 %Dlwkcl48-65RurXpqgtp [place] HospitalComment on above:Performed By: #### ELEC #### [facility] ([id number]) [address] [address] [place], [place] [address]Pnsbtpirfo (Bld) [Mass/Vol]11.3 g/dLLow11.7-15.5Pro[facility] HospitalComment on above:Performed By: #### ELEC #### [facility] ([id number]) [address] [address] [place], [place] [address]ASLLWCLWDJQ3+AbnormalNONEProMedAvita Health System [facility] HospitalComment on above:Performed By: #### ELEC #### [facility] ([id number]) [address] [address] [place], [place] [address]Thcjmtswoex (Bld) [#/Vol]2.6 10*3/uLNormal1.0-3.5PWoman's Hospitalica [facility] HospitalComment on above:Performed By: #### ELEC #### [facility] ([id number]) [address], [address] [place], [place] [address]Yrqvdzisout/100 WBC (Bld)16.0 %NormalHocking Valley Community Hospital Comment on above:Performed By: #### ELEC #### [facility] ([id number]) [address], [address] [place], [place] [address]DNO (RBC) [Entitic mass]24.8 lyZvg44-20TrkZqfqjeHocking Valley Community Hospital Comment on above:Performed By: #### ELEC #### [facility] ([id number]) [address], [address] [place], [place] [address]QGLI (RBC) [Mass/Vol]32.2 g/tXXvzito63-92UmoGzbsud [place] HospitalComment on above:Performed By: #### ELEC #### [facility] ([id number]) [address], [address] [place], [place] [address]DZC (RBC) [Entitic vol]77 dYBjc73-971UorMrrxmgHocking Valley Community Hospital Comment on above:Performed By: #### ELEC #### [facility] ([id number]) [address], [address] [place], [place] [address]Rxmvndttb (Bld) [#/Vol]1.0 10*3/uLHigh0-0.9ProKettering Health Behavioral Medical CenterComment on above:Performed By: #### ELEC #### [facility] ([id number]) [address], [address] [place], [place] [address]Nubyfyskk/100 WBC (Bld)6.0 %NormalHocking Valley Community Hospital Comment on above:Performed By: #### ELEC #### [facility] ([id number]) [address], [address] [place], [place] [address]TLDDJFITH5.0 %NormalProMedica [place] HospitalComment on above: Performed By: #### ELEC #### [facility] ([id number]) [address], [address] [place], [place] [address]Cbuqepznihx (Bld) [#/Vol]12.2 10*3/uLHigh1.5-6.6Pro[facility]ica [facility] HospitalComment on above:Performed By: #### ELEC #### [facility] ([id number]) [address], [address] [place], [place] [address]Eqrwgeoi mean volume (Bld) [Entitic vol]6.7 fLLow7-12Pro[facility] HospitalComment on above:Performed By: #### ELEC #### [facility] ([id number]) [address], [address] [place], [place] [address]Kypronhxj (Bld) [#/Vol]493 10*3/fWFnba557-798CszTotiye [facility] HospitalComment on above:Performed By: #### ELEC #### [facility] ([id number]) [address], [address] [place], [place] [address]XMF COUNT4.57 X10E12/LNormal3.80-5.20[facility] Comment on above:Performed By: #### ELEC #### [facility] ([id number]) [address], [address] [place] [address]NWG OBTCSFGQUD82.0 %NormalProMedica [place] HospitalComment on above:Performed By: #### ELEC #### [facility] ([id number]) [address], [address] [place], [place] [address]EEL (Bld) [#/Vol]16.3 10*3/uLHigh4.0-11.0Pro[facility] HospitalComment on above:Performed By: #### ELEC #### [facility] ([id number]) [address], [address] [place], [place] [address]VP [Catalytic activity/Vol]on 21-91-1109IQE<50Eey97-205SodPsuvwm [facility] HospitalComment on above:Performed By: #### ELEC #### [facility] ([id number]) [address], [address] [place], [place] [address]FOEXGFZKJWAWN METABOLIC PANELon 16-84-9394Xjrpqps [Mass/Vol]2.9 g/dLLow3.2-5.3[facility] HospitalComment on above:Performed By: #### ELEC #### [facility] ([id number]) [address], [address] [place], [place] [address]RPR [Catalytic activity/Vol]69 U/CIvkgag06-982LkfQaoxfk [facility] HospitalComment on above:Performed By: #### ELEC #### [facility] ([id number]) [address], [address] [place], [place] [address]LUY [Catalytic activity/Vol]7 U/LNormal0-31[facility] HospitalComment on above:Performed By: #### ELEC #### [facility] ([id number]) [address], [address] [place], [place] [address]Vtcnp gap [Moles/Vol]7 mmol/LNormal5-15[facility] [facility] Comment on above:Performed By: #### ELEC #### [facility] ([id number]) [address], [address] [place], [place] [address]LTX [Catalytic activity/Vol]11 U/LNormal0-41[facility] [place] HospitalComment on above:Performed By: #### ELEC #### [facility] ([id number]) [address], [address] [place], [place] [address]Ghjoilvgf [Mass/Vol]0.2 mg/dLLow0.3-1.2[facility] [facility] Comment on above:Performed By: #### ELEC #### [facility] ([id number]) [address], [address] [place], [place] [address]Cunbglk [Mass/Vol]9.4 mg/dLNormal8.5-10.5POhioHealth Grady Memorial HospitalComment on above:Performed By: #### ELEC #### [facility] ([id number]) [address] [place], [place] [address]Ahehkhps [Moles/Vol]103 mmol/ZSdnmro81-596GhcLfbigg [place] HospitalComment on above:Performed By: #### ELEC #### [facility] ([id number]) [address] [place], [place] [address]PJ1 [Moles/Vol]31 mmol/PKorqvc12-91LsgXcbdgnOhioHealth Grady Memorial Hospital Comment on above:Performed By: #### ELEC #### [facility] ([id number]) [address] [place], [place] [address]Fwtiujcpqw [Mass/Vol]0.97 mg/dLNormal0.40-1.00ProKettering Health Behavioral Medical CenterComment on above:Result Comment: METHOD TRACEABLE TO IDMS STANDARD Performed By: #### ELEC #### [facility] ([id number]) [address], [address] [place], [place] [address]BJW/1.73 sq M.predicted among non-blacks MDRD (S/P/Bld) [Vol rate/Area]60 mL/min/{1.73_m2}Normal>59ProKettering Health Behavioral Medical CenterComment on above: Result Comment: Reported eGFR is based on the CKD-EPI 2020 equation that does not use a race coefficient.Performed By: #### ELEC #### [facility] ([id number]) [address], [address] [place], [place] [address]Ewdqmvu [Mass/Vol]86 mg/yOGqgkun49-53VqkSfdskg [facility] Comment on above:Performed By: #### ELEC #### [facility] ([id number]) [address], [address] [place], [place] [address]Zhodowaqj [Moles/Vol]4.6 mmol/LNormal3.5-5.0ProKettering Health Behavioral Medical CenterComment on above:Performed By: #### ELEC #### [facility] ([id number]) [address], [address] [place], [place] [address]Msxwjil [Mass/Vol]6.6 g/dLNormal6.0-8.0Pro[facility] Comment on above:Performed By: #### ELEC #### [facility] ([id number]) [address], [address] [place], [place] [address]Cjppgw [Moles/Vol]141 mmol/XDcpczp787-071FfiVsoeqb [facility] HospitalComment on above:Performed By: #### ELEC #### [facility] ([id number]) [address], [address] [place], [place] [address]Dulu nitrogen [Mass/Vol]31 mg/dLHigh5-27ProKettering Health Behavioral Medical CenterComment on above:Performed By: #### ELEC #### [facility] ([id number]) [address], [address] [place], [place] [address]DO SWALLOW MOTILITY FUNCTIONon [id number] SWALLOW MOTILITY FUNCTIONFL SWALLOW MOTILITY FUNCTION STUDY: Video fluoroscopic swallow [...] additional details and recommendations. Approved by Resident Keri Miller MD on 02/23/2024 8:32 AM I, León Parikh have personally reviewed the image(s) and agree with and/or edited the report Finalized by León Parikh on 02/23/2024 8:44 AMNormalProMedica [facility] MAGNESIUMon [id number] [Mass/Vol]1.7 mg/dLLow1.8-2.6Pro[facility] HospitalComment on above:Performed By: #### ELEC #### [facility] ([id number]) [address], [address] [place], [place] [address]FGBHRGHLYVea 81-05-5965Pioqchghc [Mass/Vol]3.8 mg/dLNormal 2.4-4.9Pro[facility] HospitalComment on above:Performed By: #### ELEC #### [facility] ([id number]) [address], [address] [place], [place] [address]LCG AND AUTO DIFFon 10-13-2600Bqoxylygefs distribution width (RBC) [Ratio]18.6 %High11.5-15.0ProSumma Health [facility] Campusca [place] HospitalComment on above: Performed By: #### ELEC #### [facility] ([id number]) [address], [address] [place], [place] [address]Zqknxtpxkb (Bld) [Volume fraction]34.2 %Hey87-71HmuLwmrqy [place] HospitalComment on above:Performed By: #### ELEC #### [facility] ([id number]) [address], [address] [place], [place] [address]Pxpprnydkc (Bld) [Mass/Vol]11.0 g/dLLow11.7-15.5Pro[facility] [place] HospitalComment on above:Performed By: #### ELEC #### [facility] ([id number]) [address], [address] [place], [place] [address]LFYHGLXLSQJ5+AbnormalNONEProMedica [place] HospitalComment on above:Performed By: #### ELEC #### [facility] ([id number]) [address], [address] [place], [place] [address]Teyrlodlqgv (Bld) [#/Vol]2.6 10*3/uLNormal1.0-3.5PLancaster Municipal Hospital HospitalComment on above:Performed By: #### ELEC #### [facility] ([id number]) [address], [address] [place], [place] [address]Nuovfjdrymr/100 WBC (Bld)17.0 %NormalHocking Valley Community Hospital Comment on above:Performed By: #### ELEC #### [facility] ([id number]) [address], [address] [place], [place] [address]GPR (RBC) [Entitic mass]24.5 ukWnh04-73UreJgrpraHocking Valley Community Hospital Comment on above:Performed By: #### ELEC #### [facility] ([id number]) [address], [address] [place], [place] [address]DSDE (RBC) [Mass/Vol]32.0 g/fTWdhulr29-46GynZcynba [place] HospitalComment on above:Performed By: #### ELEC #### [facility] ([id number]) [address], [address] [place], [place] [address]XRC (RBC) [Entitic vol]76 aQEio32-116ZfrNonvjrHocking Valley Community Hospital Comment on above:Performed By: #### ELEC #### [facility] ([id number]) [address], [address] [place], [place] [address]Jdxrjgkqt (Bld) [#/Vol]0.6 10*3/uLNormal0-0.9ProKettering Health Behavioral Medical CenterComment on above:Performed By: #### ELEC #### [facility] ([id number]) [address], [address] [place], [place] [address]Rninsdqel/100 WBC (Bld)4.0 %NormalProSumma Health Ak[facility] Campusca [facility] Comment on above:Performed By: #### ELEC #### [facility] ([id number]) [address], [address] [place], [place] [address]Ydnvmcvptdf (Bld) [#/Vol]12.0 10*3/uLHigh1.5-6.6ProMedica [facility] HospitalComment on above:Performed By: #### ELEC #### [facility] ([id number]) [address], [address] [place], [place] [address]Tnwmlggm mean volume (Bld) [Entitic vol]6.6 fLLow7-12ProMedica [facility] HospitalComment on above:Performed By: #### ELEC #### [facility] ([id number]) [address], [address] [place], [place] [address]Apjxsklje (Bld) [#/Vol]444 10*3/rACwvpij223-408KphBsidbg [facility] HospitalComment on above:Performed By: #### ELEC #### [facility] ([id number]) [address], [address] [place], [place] [address]RLN COUNT4.47 X10E12/LNormal3.80-5.20ProSum[facility]ca [facility] Comment on above:Performed By: #### ELEC #### [facility] ([id number]) [address], [address] [place], [place] [address]AMO IXOTBJZKWH96.0 %NormalProSumma Health Akron Campusca [place] HospitalComment on above:Performed By: #### ELEC #### [facility] ([id number]) [address], [address] [place], [place] [address]BXR (Bld) [#/Vol]15.2 10*3/uLHigh4.0-11.0Pro[facility]ica [facility] HospitalComment on above:Performed By: #### ELEC #### [facility] ([id number]) [address], [address] [place], [place] [address]VJFWLSDXVPPJA METABOLIC PANELon 09-73-0622Xpuzbou [Mass/Vol]2.9 g/dLLow3.2-5.3ProMedhale infirmary [place] HospitalComment on above:Performed By: #### ELEC #### [facility] ([id number]) [address], [address] [place], [place] [address]OTR [Catalytic activity/Vol]80 U/GUphlmq26-550JagGqdyur [facility] HospitalComment on above:Performed By: #### ELEC #### [facility] ([id number]) [address], [address] [place], [place] [address]PZV [Catalytic activity/Vol]9 U/LNormal0-31PThibodaux [facility] [place] HospitalComment on above:Performed By: #### ELEC #### [facility] ([id number]) [address], [address] [place], [place] [address]Bzesd gap [Moles/Vol]8 mmol/LNormal5-15Pro[facility] Comment on above:Performed By: #### ELEC #### [facility] ([id number]) [address], [address] [place], [place] [address]MVL [Catalytic activity/Vol]12 U/LNormal0-41ProMedica [facility] HospitalComment on above:Performed By: #### ELEC #### [facility] ([id number]) [address], [address] [place], [place] [address]Uniqjniqg [Mass/Vol]0.2 mg/dLLow0.3-1.2PLancaster Municipal Hospital Hospital Comment on above:Performed By: #### ELEC #### [facility] ([id number]) [address], [address] [place], [place] [address]Ohlpjxf [Mass/Vol]9.2 mg/dLNormal8.5-10.5PThibodaux [facility] Medical [facility] [place] HospitalComment on above:Performed By: #### ELEC #### [facility] ([id number]) [address], [address] [place], [place] [address]Gewkijin [Moles/Vol]103 mmol/NByzllj07-386CabYvpaqb [place] HospitalComment on above:Performed By: #### ELEC #### [facility] ([id number]) [address], [address] [place], [place] [address]XD9 [Moles/Vol]32 mmol/MFbgvss47-61KsxWcshphOhioHealth Grady Memorial Hospital Comment on above:Performed By: #### ELEC #### [facility] ([id number]) [address] [place], [place] [address]Mzwaoryzjp [Mass/Vol]0.94 mg/dLNormal0.40-1.00ProKettering Health Behavioral Medical CenterComment on above:Result Comment: METHOD TRACEABLE TO IDMS STANDARD Performed By: #### ELEC #### [facility] ([id number]) [address], [address] [place], [place] [address]PFP/1.73 sq M.predicted among non-blacks MDRD (S/P/Bld) [Vol rate/Area]62 mL/min/{1.73_m2}Normal>59ProKettering Health Behavioral Medical CenterComment on above: Result Comment: Reported eGFR is based on the CKD-EPI 2020 equation that does not use a race coefficient.Performed By: #### ELEC #### [facility] ([id number]) [address], [address] [place], [place] [address]Xsggztv [Mass/Vol]128 mg/gDVbwc10-64HacFdvdhcKettering Health Behavioral Medical Center Comment on above:Performed By: #### ELEC #### [facility] ([id number]) [address], [address] [place], [place] [address]Nwlchocdg [Moles/Vol]4.2 mmol/LNormal3.5-5.0ProKettering Health Behavioral Medical CenterComment on above:Performed By: #### ELEC #### [facility] ([id number]) [address], [address] [place], [place] [address]Gzduesd [Mass/Vol]6.9 g/dLNormal6.0-8.0ProAk[facility] Comment on above:Performed By: #### ELEC #### [facility] ([id number]) [address], [address] [place], [place] [address]Viuqqs [Moles/Vol]143 mmol/HVozxwr326-005EqzUfwmvg [place] HospitalComment on above:Performed By: #### ELEC #### [facility] ([id number]) [address], [address] [place], [place] [address]Itpr nitrogen [Mass/Vol]29 mg/dLHigh5-27ProAkron Children'S Hospital HospitalComment on above:Performed By: #### ELEC #### [facility] ([id number]) [address], [address] [place], [place] [address]GQVBQAMVSvq 90-05-7802Enerpegoe [Mass/Vol]2.0 mg/dLNormal1.8-2.6 [facility] [place] HospitalComment on above:Performed By: #### ELEC #### [facility] ([id number]) [address], [address] [place], [place] [address]OIBJNOWTYEdu 41-70-5262Grcnvgtsy [Mass/Vol]3.3 mg/dLNormal 2.4-4.9ProAkron Children'S Hospital HospitalComment on above:Performed By: #### ELEC #### [facility] ([id number]) [address], [address] [place], [place] [address]O DIFFICILE BY PCRon 02-21-2024. difficile toxin genes ELIZABETH+probe Ql (Stl)TOXIGENIC C DIFF Negative (qualifier value) 027 NAP1 Negative (qualifier value)NormalPRNEGProSumma Health Akron Campusca [place] HospitalComment on above: Performed By: #### ELEC #### [facility] ([id number]) [address], [address] [place], [place] [address]GVY AND AUTO DIFFon 19-58-7811EFPAHEJZ BASOPHIL0.0 X10E9/LNormal 0.0-0.2Pro[facility] [place] HospitalComment on above:Performed By: #### ELEC #### [facility] ([id number]) [address], [address] [place], [place] [address]KBSMUAEZ XYSEYCWKTI87.9 X10E9/LHigh1.5-6.6[facility] [place] HospitalComment on above:Performed By: #### ELEC #### [facility] ([id number]) [address], [address] [place], [place] [address]Jermypgbj/100 WBC (Bld)0.2 %NormalHocking Valley Community Hospital Comment on above:Performed By: #### ELEC #### [facility] ([id number]) [address], [address] [place], [place] [address]Zlvqyygndbv (Bld) [#/Vol]0.0 10*3/uLNormal0.0-0.4Pro[facility] [place] HospitalComment on above:Performed By: #### ELEC #### [facility] ([id number]) [address], [address] [place], [place] [address]Doeybwriosk/100 WBC (Bld)0.0 %NormalHocking Valley Community Hospital Comment on above:Performed By: #### ELEC #### [facility] ([id number]) [address], [address] [place], [place] [address]Qfppmgwqfas distribution width (RBC) [Ratio]18.0 %High11.5-15.0 [facility] [place] HospitalComment on above:Performed By: #### ELEC #### [facility] ([id number]) [address], [address] [place], [place] [address]Jqgqpahtgd (Bld) [Volume fraction]32.3 %Bah29-82HtkBszyzd [place] HospitalComment on above:Performed By: #### ELEC #### [facility] ([id number]) [address], [address] [place], [place] [address]Qqlnwjbgju (Bld) [Mass/Vol]10.5 g/dLLow11.7-15.5PLancaster Municipal Hospital HospitalComment on above:Performed By: #### ELEC #### [facility] ([id number]) [address], [address] [place], [place] [address]Chwoeiarnhn (Bld) [#/Vol]2.1 10*3/uLNormal1.0-3.5POhioHealth Grady Memorial HospitalComment on above:Performed By: #### ELEC #### [facility] ([id number]) [address], [address] [place], [place] [address]Ggknefxrbsh/100 WBC (Bld)14.7 %NormalHocking Valley Community Hospital Comment on above:Performed By: #### ELEC #### [facility] ([id number]) [address], [address] [place], [place] [address]PJY (RBC) [Entitic mass]24.6 lrZab62-30ZskEsngkpHocking Valley Community Hospital Comment on above:Performed By: #### ELEC #### [facility] ([id number]) [address], [address] [place], [place] [address]NGZU (RBC) [Mass/Vol]32.5 g/bABpwzdo34-63VxdPpactx [place] HospitalComment on above:Performed By: #### ELEC #### [facility] ([id number]) [address], [address] [place], [place] [address]FDW (RBC) [Entitic vol]76 oAHop61-909PziZjfsurHocking Valley Community Hospital Comment on above:Performed By: #### ELEC #### [facility] ([id number]) [address], [address] [place], [place] [address]Inmutnzyo (Bld) [#/Vol]1.3 10*3/uLHigh0-0.9Pro[facility] HospitalComment on above:Performed By: #### ELEC #### [facility] ([id number]) [address], [address] [place] [address]Zctamllvn/100 WBC (Bld)9.2 %NormalHocking Valley Community Hospital Comment on above:Performed By: #### ELEC #### [facility] ([id number]) [address], [address] [place], [place] [address]Irywkjzdgvy/100 WBC (Bld)75.9 %NormalHocking Valley Community Hospital Comment on above:Performed By: #### ELEC #### [facility] ([id number]) [address], [address] [place], [place] [address]Fhkwzhkg mean volume (Bld) [Entitic vol]6.7 fLLow7-12Pro[facility] HospitalComment on above:Performed By: #### ELEC #### [facility] ([id number]) [address], [address] [place], [place] [address]Alovcddvs (Bld) [#/Vol]448 10*3/tPWtmvqd603-361HhiSxjwjj [facility] HospitalComment on above:Performed By: #### ELEC #### [facility] ([id number]) [address], [address] [place], [place] [address]WWC COUNT4.27 X10E12/LNormal3.80-5.20ProSum[facility] Health [facility] Campusca [facility] Comment on above:Performed By: #### ELEC #### [facility] ([id number]) [address], [address] [place], [place] [address]OYH (Bld) [#/Vol]14.4 10*3/uLHigh4.0-11.0[facility] HospitalComment on above:Performed By: #### ELEC #### [facility] ([id number]) [address], [address] [place], [place] [address]KLUKXGQXBHCHX METABOLIC PANELon 99-74-6219Sboxwmk [Mass/Vol]2.9 g/dLLow3.2-5.3ProMedh[facility] infirmary [place] HospitalComment on above:Performed By: #### ELEC #### [facility] ([id number]) [address], [address] [place], [place] [address]TWA [Catalytic activity/Vol]81 U/PWyzqsx09-052BgjJlhyuz [facility] HospitalComment on above:Performed By: #### ELEC #### [facility] ([id number]) [address], [address] [place], [place] [address]UTM [Catalytic activity/Vol]4 U/LNormal0-31PThibodaux [facility] HospitalComment on above:Performed By: #### ELEC #### [facility] ([id number]) [address], [address] [place], [place] [address]Hmvwy gap [Moles/Vol]7 mmol/LNormal5-15ProL.[facility]. [facility] Comment on above:Performed By: #### ELEC #### [facility] ([id number]) [address], [address] [place], [place] [address]AYF [Catalytic activity/Vol]9 U/LNormal0-41Pro[facility] HospitalComment on above:Performed By: #### ELEC #### [facility] ([id number]) [address], [address] [place], [place] [address]Eklsgcphc [Mass/Vol]0.2 mg/dLLow0.3-1.2PLancaster Municipal Hospital Hospital Comment on above:Performed By: #### ELEC #### [facility] ([id number]) [address], [address] [place], [place] [address]Tbxrvym [Mass/Vol]8.9 mg/dLNormal8.5-10.5PLancaster Municipal Hospital HospitalComment on above:Performed By: #### ELEC #### [facility] ([id number]) [address], [address] [place], [place] [address]Jhknldxj [Moles/Vol]102 mmol/XVbqker90-704NyeXlhklg [place] HospitalComment on above:Performed By: #### ELEC #### [facility] ([id number]) [address], [address] [place], [place] [address]RC9 [Moles/Vol]34 mmol/JWbxt73-76UgbMurkcj [facility] Comment on above:Performed By: #### ELEC #### [facility] ([id number]) [address], [address] [place], [place] [address]Ocnsckbbet [Mass/Vol]1.09 mg/dLHigh0.40-1.00ProKettering Health Behavioral Medical CenterComment on above:Result Comment: METHOD TRACEABLE TO IDMS STANDARD Performed By: #### ELEC #### [facility] ([id number]) [address], [address] [place], [place] [address]HEM/1.73 sq M.predicted among non-blacks MDRD (S/P/Bld) [Vol rate/Area]52 mL/min/{1.73_m2}Low>59ProKettering Health Behavioral Medical CenterComment on above: Result Comment: Reported eGFR is based on the CKD-EPI 1 equation that does not use a race coefficient.Performed By: #### ELEC #### [facility] ([id number]) [address], [address] [place], [place] [address]Uueogia [Mass/Vol]150 mg/dGXzew43-01NhdBkbrttKettering Health Behavioral Medical Center Comment on above:Performed By: #### ELEC #### [facility] ([id number]) [address], [address] [place], [place] [address]Suojqmhzw [Moles/Vol]4.0 mmol/LNormal3.5-5.0ProKettering Health Behavioral Medical CenterComment on above:Performed By: #### ELEC #### [facility] ([id number]) [address], [address] [place], [place] [address]Xrlerxj [Mass/Vol]6.8 g/dLNormal6.0-8.0[facility] Comment on above:Performed By: #### ELEC #### [facility] ([id number]) [address], [address] [place], [place] [address]Xavpun [Moles/Vol]143 mmol/AIyqgbg848-149TozPokhzv [place] HospitalComment on above:Performed By: #### ELEC #### [facility] ([id number]) [address], [address] [place], [place] [address]Vjzq nitrogen [Mass/Vol]25 mg/dLNormal5-27ProKettering Health Behavioral Medical CenterComment on above:Performed By: #### ELEC #### [facility] ([id number]) [address], [address] [place], [place] [address]HP PANELon 17-31-1170Rxtjqizwbsujoqbr pathogens DNA and RNA panel ELIZABETH+non-probe (Stl)SPECIMEN SOURCE STOOL CAMPYLOBACTER Not detected (qualifier value) [...] detected (qualifier value) SAPOVIRUS Not detected (qualifier value)NormalNDETProKettering Health Behavioral Medical CenterComment on above:Performed By: #### ELEC #### [facility] ([id number]) [address], [address] [place], [place] [address]QEYDSWDUViv 80-96-9872Qxwhoqekx [Mass/Vol]2.4 mg/dLNormal1.8-2.6 [facility] HospitalComment on above:Performed By: #### ELEC #### [facility] ([id number]) [address], [address] [place], [place] [address]VDURAPRRCOio 70-19-1635Hugsaktox [Mass/Vol]3.7 mg/dLNormal 2.4-4.9[facility] [place] HospitalComment on above:Performed By: #### ELEC #### [facility] ([id number]) [address], [address] [place] [address]TZI AND AUTO DIFFon 47-38-5542BGGFQXVO BASOPHIL0.0 X10E9/LNormal 0.0-0.2[facility] HospitalComment on above:Performed By: #### ELEC #### [facility] ([id number]) [address], [address] [place] [address]RMEXLTJU HFEESECZHV26.4 X10E9/LHigh1.5-6.6[facility] HospitalComment on above:Performed By: #### ELEC #### [facility] ([id number]) [address], [address] [place] [address]Rdvrscmip/100 WBC (Bld)0.1 %NormalProSumma Health [facility] Campusca [facility] Comment on above:Performed By: #### ELEC #### [facility] ([id number]) [address], [address] [place] [address]Crlbdgqtszm (Bld) [#/Vol]0.0 10*3/uLNormal0.0-0.4Pro[facility] [place] HospitalComment on above:Performed By: #### ELEC #### [facility] ([id number]) [address], [address] [place], [place] [address]Xyolcqruqtl/100 WBC (Bld)0.0 %NormalHocking Valley Community Hospital Comment on above:Performed By: #### ELEC #### [facility] ([id number]) [address], [address] [place] [address]Cbrwxdzkidi distribution width (RBC) [Ratio]18.1 %High11.5-15.0 [facility] HospitalComment on above:Performed By: #### ELEC #### [facility] ([id number]) [address], [address] [place], [place] [address]Waduzfutqm (Bld) [Volume fraction]33.6 %Cdw92-61WmuPayunwKettering Health Behavioral Medical CenterComment on above:Performed By: #### ELEC #### [facility] ([id number]) [address], [address] [place], [place] [address]Toviotgbfl (Bld) [Mass/Vol]11.2 g/dLLow11.7-15.5ProMedAshtabula County Medical CenterComment on above:Performed By: #### ELEC #### [facility] ([id number]) [address], [address] [place], [place] [address]Greljopqwlh (Bld) [#/Vol]1.3 10*3/uLNormal1.0-3.5ProMedAshtabula County Medical CenterComment on above:Performed By: #### ELEC #### [facility] ([id number]) [address], [address] [place], [place] [address]Gkyuoqzgaqh/100 WBC (Bld)10.6 %NormalHocking Valley Community Hospital Comment on above:Performed By: #### ELEC #### [facility] ([id number]) [address], [address] [place], [place] [address]XEQ (RBC) [Entitic mass]25.1 iwLht53-86DqaLvcksd [facility] Comment on above:Performed By: #### ELEC #### [facility] ([id number]) [address], [address] [place], [place] [address]NMKT (RBC) [Mass/Vol]33.3 g/aENsrjvy80-24ZhcCpdxtk [facility] HospitalComment on above:Performed By: #### ELEC #### [facility] ([id number]) [address], [address] [place], [place] [address]SCV (RBC) [Entitic vol]76 yQUpz93-304MwaZowsnf [facility] Comment on above:Performed By: #### ELEC #### [facility] ([id number]) [address], [address] [place], [place] [address]Ljjevcsxq (Bld) [#/Vol]0.5 10*3/uLNormal0-0.9ProSumma Health Ak[facility] Campusca [facility] HospitalComment on above:Performed By: #### ELEC #### [facility] ([id number]) [address], [address] [place], [place] [address]Ilvpnpzuy/100 WBC (Bld)3.7 %NormalBlanchard Valley Health System Bluffton Hospitalca [facility] Comment on above:Performed By: #### ELEC #### [facility] ([id number]) [address], [address] [place], [place] [address]Vrkzovdohci/100 WBC (Bld)85.6 %NormalZanesville City Hospital Hospital Comment on above:Performed By: #### ELEC #### [facility] ([id number]) [address], [address] [place], [place] [address]Casjjset mean volume (Bld) [Entitic vol]6.9 fLLow7-12ProMedica [facility] HospitalComment on above:Performed By: #### ELEC #### [facility] ([id number]) [address], [address] [place], [place] [address]Mitqqggyz (Bld) [#/Vol]425 10*3/kODforzq402-633NasLnkiwb [facility] HospitalComment on above:Performed By: #### ELEC #### [facility] ([id number]) [address], [address] [place], [place] [address]FZQ COUNT4.45 X10E12/LNormal3.80-5.20ProSumma Health [facility] Campusca [facility] Comment on above:Performed By: #### ELEC #### [facility] ([id number]) [address], [address] [place], [place] [address]EMW (Bld) [#/Vol]12.1 10*3/uLHigh4.0-11.0ProMedica Cavazos HospitalComment on above:Performed By: #### ELEC #### [facility] ([id number]) [address], [address] [place], [place] [address]HDOGWXQCMOPSO METABOLIC PANELon 58-57-0732Dqmkmle [Mass/Vol]3.0 g/dLLow3.2-5.3ProMedica Cavazos HospitalComment on above:Performed By: #### ELEC #### [facility] ([id number]) [address], [address] [place], [place] [address]UOB [Catalytic activity/Vol]81 U/WLvteki07-280HrrWzpegx [place] HospitalComment on above:Performed By: #### ELEC #### [facility] ([id number]) [address], [address] [place], [place] [address]REK [Catalytic activity/Vol]U/LNormal0-31Pro[facility] [place] HospitalComment on above:Performed By: #### ELEC #### [facility] ([id number]) [address], [address] [place], [place] [address]Lybsh gap [Moles/Vol]10 mmol/LNormal5-15Pro[facility]ica [place] HospitalComment on above:Performed By: #### ELEC #### [facility] ([id number]) [address], [address] [place], [place] [address]WQX [Catalytic activity/Vol]9 U/LNormal0-41[facility] HospitalComment on above:Performed By: #### ELEC #### [facility] ([id number]) [address], [address] [place], [place] [address]Kqrfolmcp [Mass/Vol]0.2 mg/dLLow0.3-1.2POhioHealth Grady Memorial Hospital Comment on above:Performed By: #### ELEC #### [facility] ([id number]) [address], [address] [place], [place] [address]Jtmrtbq [Mass/Vol]9.1 mg/dLNormal8.5-10.5POhioHealth Grady Memorial HospitalComment on above:Performed By: #### ELEC #### [facility] ([id number]) [address], [address] [place], [place] [address]Gyoiumhw [Moles/Vol]97 mmol/MRbw18-831UgtPflymcHocking Valley Community Hospital Comment on above:Performed By: #### ELEC #### [facility] ([id number]) [address] [address] [place], [place] [address]QF4 [Moles/Vol]33 mmol/GLlpr42-21YumXgpwlxOhioHealth Grady Memorial Hospital Comment on above:Performed By: #### ELEC #### [facility] ([id number]) [address] [address] [place], [place] [address]Twqxfnyppd [Mass/Vol]1.16 mg/dLHigh0.40-1.00ProKettering Health Behavioral Medical CenterComment on above:Result Comment: METHOD TRACEABLE TO IDMS STANDARD Performed By: #### ELEC #### [facility] ([id number]) [address] [address] [place], [place] [address]EDF/1.73 sq M.predicted among non-blacks MDRD (S/P/Bld) [Vol rate/Area]48 mL/min/{1.73_m2}Low>59ProKettering Health Behavioral Medical CenterComment on above: Result Comment: Reported eGFR is based on the CKD-EPI 2020 equation that does not use a race coefficient.Performed By: #### ELEC #### [facility] ([id number]) [address] [address] [place], [place] [address]Tspsjrx [Mass/Vol]171 mg/sGYidt02-73NddCwqwsqKettering Health Behavioral Medical Center Comment on above:Performed By: #### ELEC #### [facility] ([id number]) [address] [address] [place], [place] [address]Hwhzzgsgd [Moles/Vol]3.6 mmol/LNormal3.5-5.0ProKettering Health Behavioral Medical CenterComment on above:Performed By: #### ELEC #### [facility] ([id number]) [address] [address] [place], [place] [address]Nopctif [Mass/Vol]7.1 g/dLNormal6.0-8.0[facility] Comment on above:Performed By: #### ELEC #### [facility] ([id number]) [address] [address] [place], [place] [address]Uwafwt [Moles/Vol]140 mmol/UGsrukh586-164JkkLckgxg [place] HospitalComment on above:Performed By: #### ELEC #### [facility] ([id number]) [address] [address] [place], [place] [address]Zpjv nitrogen [Mass/Vol]16 mg/dLNormal5-27ProAkron Children'S Hospital HospitalComment on above:Performed By: #### ELEC #### [facility] ([id number]) [address] [address] [place], [place] [address]CIPOORJCBqu 88-68-4845Kpevrcxez [Mass/Vol]2.8 mg/dLHigh1.8-2.6 ProMKettering Health Preble HospitalComment on above:Performed By: #### ELEC #### [facility] ([id number]) [address], [address] [place], [place] [address]Sczyulggc [Mass/Vol]1.5 mg/dLLow1.8-2.6[facility] Comment on above:Performed By: #### ELEC #### [facility] ([id number]) [address], [address] [place], [place] [address]FYJCKZHNADxp 83-72-7642Vfmgcwchv [Mass/Vol]3.6 mg/dLNormal 2.4-4.9ProKettering Health Behavioral Medical CenterComment on above:Performed By: #### ELEC #### [facility] ([id number]) [address], [address] [place], [place] [address]UQGWKXPBXth 09-75-7852Uymfcxiku [Moles/Vol]4.1 mmol/LNormal 3.5-5.0ProKettering Health Behavioral Medical CenterComment on above:Performed By: #### ELEC #### [facility] ([id number]) [address], [address] [place], [place] [address]ZZAGW METABOLIC PANLon 37-95-5701Uytrc gap [Moles/Vol]10 mmol/L Normal5-15ProKettering Health Behavioral Medical CenterComment on above:Performed By: #### ELYSIA BMP, , 2776- #### [facility] ([id number]) [address], [address] [place], [place] [address]Poyxbnz [Mass/Vol]9.5 mg/dLNormal8.5-10.5ProMedica [facility] HospitalComment on above:Performed By: #### CBC, BMP, , 2776- #### [facility] ([id number]) [address], [address] [place], [place] [address]Jumkpepx [Moles/Vol]96 mmol/KSjg54-255AfvMmjclrKettering Health Behavioral Medical Center Comment on above:Performed By: #### CBC, BMP, , 2776- #### [facility] ([id number]) [address], [address] [place], [place] [address]EI8 [Moles/Vol]32 mmol/OYvqxaj21-44JyaYdqetvOhioHealth Grady Memorial Hospital Comment on above:Performed By: #### SANTOSH NAIDU, , 2776-10 #### [facility] ([id number]) [address], [address] [place], [place] [address]Scvdirjual [Mass/Vol]1.10 mg/dLHigh0.40-1.00ProKettering Health Behavioral Medical CenterComment on above:Result Comment: METHOD TRACEABLE TO IDMS STANDARD Performed By: #### SANTOSH NAIDU, , 2776-10 #### [facility] ([id number]) [address], [address] [place], [place] [address]GWO/1.73 sq M.predicted among non-blacks MDRD (S/P/Bld) [Vol rate/Area]51 mL/min/{1.73_m2}Low>59ProKettering Health Behavioral Medical CenterComment on above: Result Comment: Reported eGFR is based on the CKD-EPI 2020 equation that does not use a race coefficient.Performed By: #### SANTOSH NAIDU, , 2776-10 #### [facility] ([id number]) [address], [address] [place], [place] [address]Novhknh [Mass/Vol]131 mg/pESumi72-84BiaAwfbjlHocking Valley Community Hospital Comment on above:Performed By: #### SANTOSH NAIDU, , 2776-10 #### [facility] ([id number]) [address], [address] [place], [place] [address]Xmppbylcr [Moles/Vol]3.9 mmol/LNormal3.5-5.0ProKettering Health Behavioral Medical CenterComment on above:Performed By: #### SANTOSH NAIDU, , 2776-10 #### [facility] ([id number]) [address], [address] [place], [place] [address]Efcykn [Moles/Vol]138 mmol/ZXyiujh124-030ZkhZobdaz [facility] HospitalComment on above:Performed By: #### SANTOSH NAIDU, , 2776-10 #### [facility] ([id number]) [address], [address] [place], [place] [address]Yaym nitrogen [Mass/Vol]11 mg/dLNormal5-27Pro[facility]ica [facility] HospitalComment on above:Performed By: #### SANTOSH NAIDU, , 2776-10 #### [facility] ([id number]) [address], [address] [place], [place] [address]SWNPU CULTUREon 32-66-3578Hmtewsnj identified Aer cx Nom (Bld) SPECIMEN NOTES ONLY ANAEROBIC BOTTLE SENT CULTURE RESULTS NO GROWTH 5 DAYSNormalProMedica Hackettstown HospitalComment on above:Performed By: #### ELEC #### [facility] ([id number]) [address], [address] [place], [place] [address]Rfjmtqjx identified Aer cx Nom (Bld)CULTURE RESULTS NO GROWTH 5 DAYSNormalProMedica Hackettstown HospitalCBC AND AUTO DIFFon 02-19-2024 ABSOLUTE BASOPHIL0.0 X10E9/LNormal0.0-0.2Pro[facility]ica [facility] HospitalComment on above:Performed By: #### SANTOSH NAIDU, , 2776-10 #### [facility] ([id number]) [address], [address] [place], [place] [address]ZAEFBNGE XYENTZDJBR84.1 X10E9/LHigh1.5-6.6Pro[facility]ica [facility] HospitalComment on above:Performed By: #### SANTOSH NAIDU, , 2776-10 #### [facility] ([id number]) [address], [address] [place], [place] [address]Jupkljugn/100 WBC (Bld)0.3 %NormalProAkron Children'S Hospital Hospital Comment on above:Performed By: #### SANTOSH NAIDU, , 2776-10 #### [facility] ([id number]) [address], [address] [place], [place] [address]Tkcxhkoiyir (Bld) [#/Vol]0.2 10*3/uLNormal0.0-0.4ProMedica [facility] HospitalComment on above:Performed By: #### CBC, [facility], , 2776-10 #### [facility] ([id number]) [address], [address] [place], [place] [address]Ryxhlwlaatp/100 WBC (Bld)1.3 %NormalProSumma Health Akron Campusca [facility] Comment on above:Performed By: #### CBC, [facility], , 2776-10 #### [facility] ([id number]) [address], [facility] [address] [place], [place] [address]Jpkmrgpbzkw distribution width (RBC) [Ratio]18.1 %High11.5-15.0 [facility] HospitalComment on above:Performed By: #### CBC, [facility], , 2776-10 #### [facility] ([id number]) [address], [address] [place], [place] [address]Ojiwkvzsjk (Bld) [Volume fraction]37.8 %Spyurc87-65AcuNrjyyg [facility] HospitalComment on above:Performed By: #### CBC, [facility], , 2776-10 #### [facility] ([id number]) [address], [address] [place], [place] [address]Sibaouftsh (Bld) [Mass/Vol]12.1 g/oBQmwchv38.7-15.5ProMedica [facility] HospitalComment on above:Performed By: #### CBC, BMP, , 2776-10 #### [facility] ([id number]) [address], [address] [place], [place] [address]Uugsalwqlwm (Bld) [#/Vol]2.5 10*3/uLNormal1.0-3.5POhioHealth Grady Memorial HospitalComment on above:Performed By: #### CBC, BMP, , 2776-10 #### [facility] ([id number]) [address], [address] [place], [place] [address]Uzvkolsunxm/100 WBC (Bld)17.9 %NormalHocking Valley Community Hospital Comment on above:Performed By: #### CBC, BMP, , 2776-10 #### [facility] ([id number]) [address], [address] [place], [place] [address]GSD (RBC) [Entitic mass]24.4 geIzt72-90SgeBrqcizHocking Valley Community Hospital Comment on above:Performed By: #### CBC, BMP, , 2776-10 #### [facility] ([id number]) [address], [address] [place], [place] [address]TIWK (RBC) [Mass/Vol]32.0 g/sHGjduci92-99QvgVqveob [place] HospitalComment on above:Performed By: #### CBC, BMP, , 2776-10 #### [facility] ([id number]) [address], [address] [place], [place] [address]KSE (RBC) [Entitic vol]76 tLMex85-031VbfRflbbtHocking Valley Community Hospital Comment on above:Performed By: #### CBC, BMP, , 2776-10 #### [facility] ([id number]) [address], [address] [place], [place] [address]Phnykxvpi (Bld) [#/Vol]1.4 10*3/uLHigh0-0.9H[facility] Community HospitalComment on above:Performed By: #### CBC, BMP, , 2776-10 #### [facility] ([id number]) [address], [address] [place], [place] [address]Cyjgqqqku/100 WBC (Bld)9.9 %NormalHocking Valley Community Hospital Comment on above:Performed By: #### CBC, BMP, , 2776-10 #### [facility] ([id number]) [address], [address] [place], [place] [address]Vrsbehcyeve/100 WBC (Bld)70.6 %NormalHocking Valley Community Hospital Comment on above:Performed By: #### CBC, BMP, , 2776-10 #### [facility] ([id number]) [address], [address] [place], [place] [address]Bmjjtxpc mean volume (Bld) [Entitic vol]6.9 fLLow7-12Pro[facility]ica [facility] HospitalComment on above:Performed By: #### CBC, BMP, , 2776-10 #### [facility] ([id number]) [address], [address] [place], [place] [address]Vbgrjfrbt (Bld) [#/Vol]485 10*3/vUZylw983-144VrdShsszi [place] HospitalComment on above:Performed By: #### CBC, BMP, , 2776-10 #### [facility] ([id number]) [address], [address] [place], [place] [address]IRP COUNT4.95 X10E12/LNormal3.80-5.20[facility] Comment on above:Performed By: #### CBC, BMP, , 2776-10 #### [facility] ([id number]) [address], [address] [place], [place] [address]DXT (Bld) [#/Vol]14.2 10*3/uLHigh4.0-11.0ProKettering Health Behavioral Medical CenterComment on above:Performed By: #### CBC, BMP, , 2776-10 #### [facility] ([id number]) [address] [place], [place] [address]DN ABDOMEN AND PELVIS W CONTon 69-29-4428UZ ABDOMEN AND PELVIS W CONTCT ABDOMEN AND PELVIS W CONT Clinical history: Acute nonlocalized abdominal pain. Technique: Spiral CT of the abdomen and pelvis was performed after the intravenous administration of contrast material. Sagittal and coronal reformatted imaging was performed. All CT scans at this facility use dose modulation, iterative reconstruction, and/or weight based dosing when appropriate toreduce radiation dose to as low as reasonably achievable. Comparisons: 10/10/2023. Findings: There is consolidation and atelectasis involving majority of the visualized portions of the right lower lobe. This is only partially imaged on this CT abdomen pelvis. See separately dictated CT chestreport for complete discussion of findings above the diaphragm. There is trace right pleural effusion. No pneumoperitoneum. Dense atherosclerotic aortoiliac and visceral vascular calcifications are present without aneurysm. There is some mild ectasia of the right common iliac artery. Midline fat-containing ventral abdominal wall hernia again seen. There is a hernia involving the left mid to loweranterior abdominal wall containing colon and marginally containing some small bowel. No resultant obstruction. Findings fairly similar to the prior exam. The liver, spleen, adrenal glands and pancreas appear unremarkable. There is a mostly gas-filled duodenal diverticulum second portion of duodenumwithout surrounding inflammatory changes. No retroperitoneal nor mesenteric [...] by Devonte Lehman MD on 02/19/2024 4:54 PMNormalProMedica Blanch[facility] Health System Bluffton HospitalLEGIONELLA URINE AGon 02-19-2024L. pneumophila Ag IA Ql (U)LEGIONELLA URINE AG Negative (qualifier value) NEGATIVE FOR L.PNEUMOPHILA SEROGROUP 1 ANTIGENNormalProKettering Health Behavioral Medical Center Comment on above:Performed By: #### ELEC #### [facility] ([id number]) [address], [address] [place], [place] [address]Mmduvlo (P timmy) [Moles/Vol]on 59-62-8002VZYCXXK W/REFLEX1.7 mmol/LNormal0.4-2.0ProKettering Health Behavioral Medical CenterComment on above:Result Comment: Result did not trigger repeat Lactate, re-order if needed.Performed By: #### CBC, BMP, [address]-9, 2777-1 #### [facility] ([id number]) [address], [address] [place], [place] [address]NWXP PCR NASALon 12-82-3165DBZB DNA ELIZABETH+probe Ql (Unsp spec) NegativeNormalNEGHocking Valley Community HospitalComment on above:Performed By: #### ELEC #### [facility] ([id number]) [address], [address] [place], [place] [address]Fjkpohfeyre peptide B [Mass/Vol]on 49-24-5929Ibgdhsbnosx peptide B (Bld) [Mass/Vol]38 pg/mLNormal<100.0ProKettering Health Behavioral Medical CenterComment on above:Performed By: #### CBC, BMP, [address]-0, 277-1 #### [facility] ([id number]) [address], [address] [place], [place] [address]Nghacvt Ab IA Ql (S)on 76-08-6516PGU Screen w/reflexNegative NormalNEGProKettering Health Behavioral Medical CenterComment on above:Result Comment: Testing performed using multiplex flow immunoassay. Eleven different antigens associated with systemic autoimmune diseases (dsDNA,Sm,Sm/JACKSCREW MAN,JACKSCREW MAN,Chromatin, SSA,SSB,Dacia-1,Scl70,Ribo P,Centromere B) are included in this screening test.Performed By: #### ELEC #### [facility] ([id number]) [address], [address] [place], [place] [address]VWHJHSI AND INRon 77-70-6337KDB Coag (PPP) [Relative time]1.1 {INR}Normal0.8-1.1POhioHealth Grady Memorial HospitalComment on above:Performed By: #### CBC, BMP, [address]-8, 2776-1 #### [facility] ([id number]) [address] [facility] [place], [place] [address]OK Coag (PPP) [Time]13.1 sNormal9.8-13.2POhioHealth Grady Memorial HospitalComment on above:Performed By: #### CBC, BMP, , 2776-1 #### [facility] ([id number]) [address], [address] [place], [place] [address]Hgtkhcezpmudi IA [Mass/Vol]on 86-34-8969RGAAQMZGXXTNL8.10 ng/mL High<0.05ProKettering Health Behavioral Medical CenterComment on above:Result Comment: NOTE <0.50 ng/mL - Low risk of severe sepsis and/or septic shock. <2.00 ng/mL - Recommend retesting within 6-24 hours. >2.00 ng/mL - High risk of sepsis and/or septic shock.Performed By: #### ELEC #### [facility] ([id number]) [address], [address] [place], [place] [address]Ttcwkwbika factor Nephelometry Qn (S)on 17-01-0690FIKOGAXDJT FACTOR<10Normal<20ProSumma Health [facility] Campusca [facility] HospitalComment on above:Performed By: #### ELEC #### [facility] ([id number]) [address], [address] [place], [place] [address]E PNEUMONIAE AG Uon 04-24-2024S. pneumoniae Ag Ql (U)Negative NormalNEGProMedica Blanchard Valley Health [facility] Bluffton HospitalComment on above:Performed By: #### ELEC #### [facility] ([id number]) [address] [place] [address], [address] [place], [place] [address]YYFT/FLU A+B/RSV by NAAT/Molecularon 09-42-7302AOFB/FLU A+B/RSV by NAAT/MolecularFLU A PCR Negative (qualifier value) FLU B [...] operators who are performing tests using either [employer] or [employer] systems and is limited to laboratories that [...] specimen repeat. Fact Sheet for Healthcare Providers: https://www.fda.gov/media/767638/download Fact Sheet for Patients: https://www.fda.gov/media/068630/downloadNormalProKettering Health Behavioral Medical CenterComment on above:Performed By: #### ELEC #### [facility] ([id number]) [address], [address] [place], [place] [address]NOVHS PCR THROATon 02-19-2024S. pyogenes DNA ELIZABETH+probe Nom (Unsp spec)STREP PCR THROAT Negative (qualifier value) Streptococcus Group A NOT detected by nucleic acid amplification.NormalProKettering Health Behavioral Medical CenterComment on above: Performed By: #### ELEC #### [facility] ([id number]) [address], [address] [place], [place] [address]Ctiwysrz I.cardiac High sensitivity method [Mass/Vol]on HOUR TROP I, HIGH SENSITIVITY4 ng/LNormal<16ProSumma Health [facility] Campusca [facility] HospitalComment on above:Performed By: #### ELEC #### [facility] ([id number]) [address], [address] [place], [place] [address]ADFQYZKL I, HIGH SENSITIVITY4 ng/LNormal<16ProMedica [facility] HospitalComment on above:Performed By: #### CBC, BMP, [address]-0, 2777-1 #### [facility] ([id number]) [address], [address] [place] [address]YVG CULTUREon 27-22-7567Czzxczua identified Cx Nom (U)CULTURE RESULTS 10,000 to 50,000 ORGANISMS/mL ENTEROCOCCUS SPECIES [...] SPECIES Antibiotic Interpretation NATALIA Status DAPTOMYCIN S FSusceptibleProMedica Hackettstown HospitalComment on above:Performed By: #### ELEC #### [facility] ([id number]) [address] [facility] [address], [address] [place], [place] [address]JQJ MACROSCOPIC NURon 69-56-9656STJVANOZP NURNegativeNormalNEG [facility] HospitalComment on above:Performed By: #### ELEC #### [facility] ([id number]) [address] [place] [address], [address] [place], [place] [address]POXOL/HGB NURSmallAbnormalNEGProMedica Hackettstown HospitalComment on above:Performed By: #### ELEC #### [facility] ([id number]) [address] [facility], [address] [place], [place] [address]ZSKLLZD NURNegativeNormalNEGProMedica Hackettstown HospitalComment on above:Performed By: #### ELEC #### [facility] ([id number]) [address] [facility], [address] [place], [place] [address]QXEVYPI NURNegativeNormalNEGProMedica Hackettstown HospitalComment on above:Performed By: #### ELEC #### [facility] ([id number]) [address] [place] [address], [address] [place], [place] [address]QHWRHDAEN ESTERASE NURSmallAbnormalNEGProMedica [facility] Hospital Comment on above:Performed By: #### ELEC #### [facility] ([id number]) [address] [place] [address], [address] [place], [place] [address]HQFYRIS NURNegativeNormalNEGProMedica Hackettstown HospitalComment on above:Performed By: #### ELEC #### [facility] ([id number]) [address] [place] [address], [address] [place], [place] [address]CQ NUR5.6Elhrmc5.0-8.5ProMedAvita Health [facility] HospitalComment on above: Performed By: #### ELEC #### [facility] ([id number]) [address], [address] [place], [place] [address]WXTDMMF NURNegativeNormalNEGProMedica Hackettstown HospitalComment on above:Performed By: #### ELEC #### [facility] ([id number]) [address], [address] [place], [place] [address]VXILPUBU GRAVITY NUR1.748Hbpzcl6.003-1.035Pro[facility] [place] HospitalComment on above:Performed By: #### ELEC #### [facility] ([id number]) [address], [address] [place], [place] [address]SENVPADIOWWS NUR0.2 eu/dLNormal<1.1POhioHealth [facility]ady [facility] Hospital Comment on above:Performed By: #### ELEC #### [facility] ([id number]) [address], [address] [place], [place] [address]FTLMJP BLOOD GASon [id number]'S TESTNormalProSumma Health Akron Campusca [place] HospitalComment on above:Performed By: #### ELEC #### [facility] ([id number]) [address], [address] [place], [place] [address]Maon excess Calc (Bld) [Moles/Vol]10.0 mmol/LHigh0.0-2.0 [facility] HospitalComment on above:Performed By: #### ELEC #### [facility] ([id number]) [address], [address] [place], [place] [address]Jgmt knyxibvpppv48.6 [degF]Ujqeub97.0ProKet[facility] Comment on above:Performed By: #### ELEC #### [facility] ([id number]) [address], [address] [place], [place] [address]SAX5 (Bld) [Moles/Vol]34.7 mmol/LHigh20.0-24.0Pro[facility]azos HospitalComment on above:Performed By: #### ELEC #### [facility] - [facility] ([id number]) [address], [address] [place], [place] [address]HKPA. O2 CONC.30 %NormalProMedica Cavazos HospitalComment on above:Performed By: #### ELEC #### [facility] ([id number]) [address], [address] [place], [place] [address]Lbgwpc saturation in Blood89.0 %Normal>80.0ProMedica Cavazos HospitalComment on above:Performed By: #### ELEC #### [facility] ([id number]) [address], [address] [place], [place] [address]DNBHCR SOURCENCNormalProMedica Cavazos HospitalComment on above: Performed By: #### ELEC #### [facility] ([id number]) [address], [address] [place], [place] [address]BRZ4, FRBVOG14.3 ZHLZKbbrmy42-07JqsNskbff [place] HospitalComment on above:Performed By: #### ELEC #### [facility] ([id number]) [address], [address] [place], [place] [address]PY, VENOUS7.416Qtvp6.320-7.420ProMedica Cavazos HospitalComment on above:Performed By: #### ELEC #### [facility] ([id number]) [address], [address] [place], [place] [address]PV8, TFVXMK42 SULVTtau73-75JriUtynnx [place] HospitalComment on above:Performed By: #### ELEC #### [facility] ([id number]) [address], [address] [place], [place] [address]GKTDUK SITEN/ANormalProMedica Cavazos HospitalComment on above: Performed By: #### ELEC #### [facility] ([id number]) [facility], [address] [place], [place] [address]HZISKW TYPEVENOUSNormalProKettering Health Behavioral Medical CenterComment on above:Performed By: #### ELEC #### [facility] ([id number]) [address] [place] [address], [address] [place], [place] [address]SO CHEST 1 VWon 60-29-7492OS CHEST 1 VWXR CHEST 1 VW XR CHEST 1 VW History: Chest pain. Short of breath One view study. Comparison: 10/06/2023 Impression: * Patient has been extubated. Right hemidiaphragm appears elevated. This could represent subpulmonic fluid or mass. It could represent interval development of hemidiaphragmatic paralysis. Consider two-view imaging. No pneumothorax. No consolidative airspace disease is seen.. Finalized by Norma Hayes MD on 02/19/2024 3:46 PMNormalHocking Valley Community Hospital aPTT Coag (PPP) [Time]on 37-59-6239oIDA Coag (Bld) [Time]32 kRzgudo10-77 [facility]uffton HospitalComment on above:Performed By: #### CBC, BMP, 26849-7, 2777-1 #### [facility] ([id number]) [address] [place] [address], [address] [place], [place] [address]Vvrhl Metabolic Panelon 37-55-7488Liewteuhfo Clr Calc Pharmacy 50.21[facility] Physician GroupComment on above:Result Comment: PERFORMED BY: [place] [address] PATHOLOGIST [employer] REVIEWER JORGE MURRELL M.D.Performed By: #### LIPASE, CMP, HS TROP, SCAN CBC, MG, NORMA #### [place] [address] USAGFR/1.73 sq M.predicted MDRD (S/P/Bld) [Vol rate/Area] mL/min/{1.73_m2}NormalThe [facility] Physician GroupComment on above:Performed By: #### LIPASE, CMP, HS TROP, SCAN CBC, MG, NORMA #### [facility] [address] [place] [address] USACalcium [Mass/volume] in Serum or PlasmaOrdered By: Lucho Hammersylvia on 19-15-1550Uxziczw [Mass/Vol]8.5 mg/dLLow8.6-10.3FOhioHealth Hardin Memorial HospitalComment on above:Performed By: #### LIPASE, CMP, HS TROP, SCAN CBC, MG, NORMA #### [facility] [address] [place] [address] USACarbon dioxide, total [Moles/volume] in Serum or Plasma Ordered By: Yaimajames Jaquelinsylvia on 69-66-4850MP2 [Moles/Vol]29.4 mmol/LNormal 21.0-31.0Brec[facility]ville Va / Crille HospitalComment on above:Performed By: #### LIPASE, CMP, HS TROP, SCAN CBC, MG, NORMA #### [facility] [address] [place] [address] USAChloride [Moles/volume] in Serum or PlasmaOrdered By: Yaimajames Yadi on 93-89-8257Ipdzbivg [Moles/Vol]103 mmol/IJocsbd90-112TojapragmBrecksville Va / Crille HospitalComment on above:Performed By: #### LIPASE, CMP, HS TROP, SCAN CBC, MG, NORMA #### [place] [address] USACreatinine [Mass/volume] in Serum or PlasmaOrdered By: Lucho Grullon on 16-40-1655Bfqbtzwksz [Mass/Vol]0.90 mg/dLNormal0.60-1.20 [facility] Crille HospitalComment on above:Performed By: #### LIPASE, CMP, HS TROP, SCAN CBC, MG, NORMA #### [facility] [address] [place] [address] USAErythrocyte distribution width [Ratio] by Automated count Ordered By: Lucho Cappssosylvia on 21-56-4162Xqvocjcwvyl distribution width (RBC) [Ratio]18.2 %High11.9-15.3FOhioHealth Hardin Memorial HospitalComment on above: Performed By: #### LIPASE, CMP, HS TROP, SCAN CBC, MG, NORMA #### [facility] [address] [place] [address] USAErythrocytes [#/volume] in Blood by Automated countOrdered By: Lucho Cappsmariza on 54-37-9507ZLZ (Bld) [#/Vol]4.25 10*6/uLNormal3.60-5.00 [facility] Crille HospitalComment on above:Performed By: #### LIPASE, CMP, HS TROP, SCAN CBC, MG, NORMA #### [facility] [address] [place] [id number] USAGlucose [Mass/volume] in Serum or PlasmaOrdered By: Juneharini Grullon on 48-18-7264Cuodoxx [Mass/Vol]85 mg/aSLmliay43-875KbzsxucwqBrecksville Va / Crille HospitalComment on above:ADA recommended reference rangeRandom Glucose Reference Range is dependent on time and content of last meal. Glucose of more than 200 mg/dL in a nonstressed, ambulatory subject supports the diagnosisof Diabetes Mellitus.Result Comment: Random Glucose Reference Range is dependent on time and content of last meal. Glucose of more than 200 mg/dL in a nonstressed, ambulatory subject supports the diagnosis of Diabetes Mellitus. ADA recommended reference rangePerformed By: #### LIPASE, CMP, HS TROP, SCAN CBC, MG, NORMA #### [facility] [address] [place] [address] USAHematocrit [Volume Fraction] of Blood by Automated count Ordered By: Yaimajames Génesismariza on 16-76-0294Asgkdioiub (Bld) [Volume fraction]32.8 % Low34.0-46.4FOhioHealth Hardin Memorial HospitalComment on above:Performed By: #### LIPASE, CMP, HS TROP, SCAN CBC, MG, NORMA #### [address] [address] USAHemoglobin [Mass/volume] in BloodOrdered By: Yaimajames Génesismariza on 22-65-5600Wzhfsgvaup (Bld) [Mass/Vol]10.6 g/dLLow11.8-15.4FOhioHealth Hardin Memorial HospitalComment on above:Performed By: #### LIPASE, CMP, HS TROP, SCAN CBC, MG, NORMA #### [facility] [address] [place] [address] USAHemogram CBC Without Diffon 08-20-6615Gmto Corpuscular HGB Conc32.3 g/gXTkkcym57.0-35.0The [facility] Physician GroupComment on above: Performed By: #### LIPASE, CMP, HS TROP, SCAN CBC, MG, NORMA #### [facility] [address] [place] [address] USAWBC (Bld) [#/Vol]10.9 10*3/uLNormal3.8-11.6The [facility] Physician GroupComment on above:Performed By: #### LIPASE, CMP, HS TROP, SCAN CBC, MG, NORMA #### [place] [address] USALeukocytes [#/volume] corrected for nucleated erythrocytes in Blood by Automated counOrdered By: Lucho Grullon on 03-08-7458SNK corrected for nucl RBC Auto (Bld) [#/Vol]10.9 10*3/uL3.8-11.6FKettering Health Washington Township [Entitic mass] by Automated countOrdered By: Lucho Grullon on 93-78-6369GMG (RBC) [Entitic mass]24.9 ajTqvfex76.7-34.3FOhioHealth Hardin Memorial HospitalComment on above:Performed By: #### LIPASE, CMP, HS TROP, SCAN CBC, MG, NORMA #### [address]HC Auto (RBC) [Mass/Vol]Ordered By: Lucho Grullon on 51-75-4390JUEB (RBC) [Mass/Vol]32.3 g/dL32.0-35.0[facility] [Entitic volume] by Automated countOrdered By: Lucho Grullon on 11-26-5886EUA (RBC) [Entitic vol]77.2 oZXdv11-852JfnrfzvdnBrecksville Va / Crille HospitalComment on above:Performed By: #### LIPASE, CMP, HS TROP, SCAN CBC, MG, NORMA #### [facility] [address] [place] [address] USANo Panel InformationOrdered By: Juneharini Génessimariza on 76-10-0745Xaefvwnvr GFR (CKD-EPI)> 60.0 mL/MinBrecksville Va / Crille Hospital [facility]acy Creatinine Clearance (Chem50.21[facility] Platelet mean volume [Entitic volume] in Blood by Automated countOrdered By: Yaimajames Génesismariza on 24-52-5278Zjmqhynw mean volume (Bld) [Entitic vol]6.9 fLNormal 6.3-10.7FOhioHealth Hardin Memorial HospitalComment on above:Result Comment: PERFORMED BY: [place] [address] PATHOLOGIST [employer] REVIEWER JORGE MURRELL M.D.Performed By: #### LIPASE, CMP, HS TROP, SCAN CBC, MG, NORMA #### [facility] [address] [place] [address] USAPlatelets [#/volume] in Blood by Automated countOrdered By: Juneharini Génesismariza on 89-27-5838Hrysxjkvt (Bld) [#/Vol]370 10*3/nNHzyfny512-529 [facility] Cr[facility] HospitalComment on above:Performed By: #### LIPASE, CMP, HS TROP, SCAN CBC, MG, NORMA #### [facility] [address] [place] [address] USAPotassium [Moles/volume] in Serum or PlasmaOrdered By: Juneharini Génesismariza on 23-57-2314Nnmqmbopa [Moles/Vol]4.2 mmol/LNormal3.5-5.1 [facility] HospitalComment on above:Performed By: #### LIPASE, CMP, HS TROP, SCAN CBC, MG, NORMA #### [facility] [address] [place] [address] USASerum or plasma anion gap determinationOrdered By: Lucho Génesismariza on 38-68-5589Cxbgi gap [Moles/Vol]10.8 mmol/LNormal6.0-15.0[facility] Cr[facility] HospitalComment on above:Performed By: #### LIPASE, CMP, HS TROP, SCAN CBC, MG, NORMA #### [place] [address] USASodium [Moles/volume] in Serum or PlasmaOrdered By: Lucho Hammersylvia on 02-94-5018Hvuzjv [Moles/Vol]139 mmol/OZqzpvl454-696FqltbjvlpBrecksville Va / Crille HospitalComment on above:Performed By: #### LIPASE, CMP, HS TROP, SCAN CBC, MG, NORMA #### [place] [address] USAUrea nitrogen [Mass/volume] in Serum or PlasmaOrdered By: Lucho Génesismariza on 61-07-3302Dyvs nitrogen [Mass/Vol]8 mg/dLNormal7-25B[facility] Cr[facility] HospitalComment on above:Performed By: #### LIPASE, CMP, HS TROP, SCAN CBC, MG, NORMA #### [place] [address] USAAerobic Cultureon 30-77-9746Rjlzvjz CultureLight Normal Respiratory Kimberly 2 Days Gram Stain Result 3+ White Blood Cells 1+ Epithelial Cells 2+ Gram Positive Cocci 1+ Yeast Like Elements PERFORMED BY: [place] [address] PATHOLOGIST V[employer] REVIEWER JORGE MURRELL M.D.NormalThe [facility] Hospital Physician GroupComment on above:Performed By: #### LIPASE, CMP, HS TROP, SCAN CBC, MG, NORMA #### [place] [address] USABasic Metabolic Panelon 05-62-9878Cmyhc gap [Moles/Vol]9.6 mmol/LNormal6.0-15.0The [facility] Physician GroupComment on above:Performed By: #### LIPASE, CMP, HS TROP, SCAN CBC, MG, NORMA #### [place] [address] USACalcium [Mass/Vol]8.5 mg/dLLow8.6-10.3The [facility] Physician GroupComment on above:Performed By: #### LIPASE, CMP, HS TROP, SCAN CBC, MG, NORMA #### [facility] [address] [place] [address] USAChloride [Moles/Vol]103 mmol/CNsjwpu66-608Xue [facility] Physician GroupComment on above:Performed By: #### LIPASE, CMP, HS TROP, SCAN CBC, MG, NORMA #### [facility] [address] [place] [address] USACO2 [Moles/Vol]27.3 mmol/BGsfzdy67.0-31.0The [facility] Physician GroupComment on above:Performed By: #### LIPASE, CMP, HS TROP, SCAN CBC, MG, NORMA #### [facility] [address] [place] [address] USACreatinine [Mass/Vol]0.92 mg/dLNormal0.60-1.20The [facility] Physician GroupComment on above:Performed By: #### LIPASE, CMP, HS TROP, SCAN CBC, MG, NORMA #### [place] [address] USACreatinine Clr Calc Gumxmuzi86.75NormalThe Department Of Veterans [facility] Center[facility] GroupComment on above:Result Comment: PERFORMED BY: [place] [address] PATHOLOGIST V[employer] REVIEWER JORGE MURRELL M.D.Performed By: #### LIPASE, CMP, HS TROP, SCAN CBC, MG, NORMA #### [place] [address] USAGFR/1.73 sq M.predicted MDRD (S/P/Bld) [Vol rate/Area] mL/min/{1.73_m2}NormalThe [facility] Luke'S HospitalComment on above:Performed By: #### LIPASE, CMP, HS TROP, SCAN CBC, MG, NORMA #### [facility] [address] [place] [address] USAGlucose [Mass/Vol]83 mg/bJAoweuz71-545Bqb [facility] Physician [facility]it Health NatchezComment on above:Result Comment: Random Glucose Reference Range is dependent on time and content of last meal. Glucose of more than 200 mg/dL in a nonstressed, ambulatory subject supports the diagnosis of Diabetes Mellitus. ADA recommended reference rangePerformed By: #### LIPASE, CMP, HS TROP, SCAN CBC, MG, NORMA #### [facility] [address] [place] [address] USAPotassium [Moles/Vol]3.9 mmol/LNormal3.5-5.1The [facility] Physician GroupComment on above:Performed By: #### LIPASE, CMP, HS TROP, SCAN CBC, MG, NORMA #### [facility] [address] [place] [address] USASodium [Moles/Vol]136 mmol/UYmquci372-136Vlh [facility] Physician GroupComment on above:Performed By: #### LIPASE, CMP, HS TROP, SCAN CBC, MG, NORMA #### [place] [address] USAUrea nitrogen [Mass/Vol]9 mg/dLNormal7-25The [facility] Physician GroupComment on above:Performed By: #### LIPASE, CMP, HS TROP, SCAN CBC, MG, NORMA #### [place] [address] USAGram stain for investigation of transfusion reaction Ordered By: Lucho Grullon on 79-02-1726Zkdkgkflnmk observation Gram stain Nom (Unsp spec)1 [facility] HospitalHemogram CBC Without Diffon 88-69-7586Zmmcuqllxrf distribution width (RBC) [Ratio]18.3 %High11.9-15.3The [facility] Physician GroupComment on above:Performed By: #### LIPASE, CMP, HS TROP, SCAN CBC, MG, NORMA #### [place] [address] USAHematocrit (Bld) [Volume fraction]33.8 %Low34.0-46.4The [facility] Physician GroupComment on above:Performed By: #### LIPASE, CMP, HS TROP, SCAN CBC, MG, NORMA #### [place] [address] USAHemoglobin (Bld) [Mass/Vol]10.6 g/dLLow11.8-15.4The [facility] Physician GroupComment on above:Performed By: #### LIPASE, CMP, HS TROP, SCAN CBC, MG, NORMA #### [address] (RBC) [Entitic mass]24.1 pgLow24.7-34.3The [facility] Physician GroupComment on above:Performed By: #### LIPASE, CMP, HS TROP, SCAN CBC, MG, NORMA #### [address] (RBC) [Entitic vol]76.8 xWEtw25-529Pyy [facility] Physician GroupComment on above:Performed By: #### LIPASE, CMP, HS TROP, SCAN CBC, MG, NORMA #### [place] [address] USAMean Corpuscular HGB Conc31.4 g/dLLow32.0-35.0The [facility] Physician GroupComment on above:Performed By: #### LIPASE, CMP, HS TROP, SCAN CBC, MG, NORMA #### [place] [address] USAPlatelet mean volume (Bld) [Entitic vol]7.1 fLNormal 6.3-10.7The [facility] Physician GroupComment on above:Result Comment: PERFORMED BY: [place] [address] PATHOLOGIST V[employer] REVIEWER JORGE MURRELL M.D.Performed By: #### LIPASE, CMP, HS TROP, SCAN CBC, MG, NORMA #### [place] [address] USAPlatelets (Bld) [#/Vol]373 10*3/bYQxgtjf542-300Oba [facility] Physician GroupComment on above:Performed By: #### LIPASE, CMP, HS TROP, SCAN CBC, MG, NORMA #### [place] [address] USARBC (Bld) [#/Vol]4.41 10*6/uLNormal3.60-5.00The [facility] Physician GroupComment on above:Performed By: #### LIPASE, CMP, HS TROP, SCAN CBC, MG, NORMA #### [place] [address] USAWBC (Bld) [#/Vol]11.1 10*3/uLNormal3.8-11.6The [facility] Physician GroupComment on above:Performed By: #### LIPASE, CMP, HS TROP, SCAN CBC, MG, NORMA #### [place] [address] USABasic Metabolic Panelon 78-35-4336Aakkd gap [Moles/Vol]9.8 mmol/LNormal6.0-15.0The [facility] Physician GroupComment on above:Performed By: #### LIPASE, CMP, HS TROP, SCAN CBC, MG, NORMA #### [place] [address] USACalcium [Mass/Vol]8.4 mg/dLLow8.6-10.3The [facility] Physician GroupComment on above:Performed By: #### LIPASE, CMP, HS TROP, SCAN CBC, MG, NORMA #### [place] [address] USAChloride [Moles/Vol]103 mmol/DCjnljr53-704Qxr [facility] Physician GroupComment on above:Performed By: #### LIPASE, CMP, HS TROP, SCAN CBC, MG, NORMA #### [place] [address] USACO2 [Moles/Vol]28.7 mmol/AUemasy31.0-31.0The [facility] Physician GroupComment on above:Performed By: #### LIPASE, CMP, HS TROP, SCAN CBC, MG, NORMA #### [place] [address] USACreatinine [Mass/Vol]1.16 mg/dLNormal0.60-1.20The [facility] Physician GroupComment on above:Performed By: #### LIPASE, CMP, HS TROP, SCAN CBC, MG, NORMA #### [place] [address] USACreatinine Clr Calc Inwdzxao66.75NormalThe [facility] Physician GroupComment on above:Performed By: #### LIPASE, CMP, HS TROP, SCAN CBC, MG, NORMA #### [place] [address] USAGFR/1.73 sq M.predicted MDRD (S/P/Bld) [Vol rate/Area] 48.257 mL/min/{1.73_m2}NormalThe [facility] Physician GroupComment on above: Performed By: #### LIPASE, CMP, HS TROP, SCAN CBC, MG, NORMA #### [place] [address] USAGlucose [Mass/Vol]79 mg/nMMclkvw61-434Icw [facility] Physician GroupComment on above:Result Comment: Random Glucose Reference Range is dependent on time and content of last meal. Glucose of more than 200 mg/dL in a nonstressed, ambulatory subject supports the diagnosis of Diabetes Mellitus. ADA recommended reference rangePerformed By: #### LIPASE, CMP, HS TROP, SCAN CBC, MG, NORMA #### [place] [address] USAPotassium [Moles/Vol]3.5 mmol/LNormal3.5-5.1The [facility] Physician GroupComment on above:Performed By: #### LIPASE, CMP, HS TROP, SCAN CBC, MG, NORMA #### [place] [address] USASodium [Moles/Vol]138 mmol/DXvnzws383-019Xcb [facility] Physician GroupComment on above:Performed By: #### LIPASE, CMP, HS TROP, SCAN CBC, MG, NORMA #### [place] [address] USAUrea nitrogen [Mass/Vol]14 mg/dLNormal7-25The [facility] Physician GroupComment on above:Performed By: #### LIPASE, CMP, HS TROP, SCAN CBC, MG, NORMA #### [place] [address] USAClostridioides difficile toxin B tcdB gene [Presence] in Stool by ELIZABETH with probe deteOrdered By: Lucho Grullon on 02-15-2024. difficile toxin B tcdB gene ELIZABETH+probe Ql (Stl)NegativeNegativeBrecksville Va / Crille HospitalComment on above:Testing performed by RT-PCRClostridium Difficileon 93-77-3583Rjsgpqadryf DifficileNegativeNormalNegativeThe [facility] Physician GroupComment on above:Order Comment: > or = to 3 loose/watery stools in the last 24 HRS? Y Is patient on promotility agents or tube feeding? NResult Comment: Testing performed by RT-PCR PERFORMED BY: [place] [address] PATHOLOGIST [employer] REVIEWER JORGE MURRELL M.D.Performed By: #### LIPASE, CMP, HS TROP, SCAN CBC, MG, NORMA #### [place] [address] USAHemogram CBC Without Diffon 62-79-9176Togtfisncwy distribution width (RBC) [Ratio]18.2 %High11.9-15.3The [facility]ician Group Comment on above:Performed By: #### LIPASE, CMP, HS TROP, SCAN CBC, MG, NORMA #### [place] [address] USAHematocrit (Bld) [Volume fraction]34.6 %Ilvazj11.0-46.4The [facility] Physician GroupComment on above:Performed By: #### LIPASE, CMP, HS TROP, SCAN CBC, MG, NORMA #### [place] [address] USAHemoglobin (Bld) [Mass/Vol]10.9 g/dLLow11.8-15.4The [facility] Physician GroupComment on above:Performed By: #### LIPASE, CMP, HS TROP, SCAN CBC, MG, NORMA #### [place] [address] USAMCH (RBC) [Entitic mass]24.2 pgLow24.7-34.3The [facility] Physician GroupComment on above:Performed By: #### LIPASE, CMP, HS TROP, SCAN CBC, MG, NORMA #### [place] [address] USAMCV (RBC) [Entitic vol]77.1 rRSae97-102Oen [facility] Physician GroupComment on above:Performed By: #### LIPASE, CMP, HS TROP, SCAN CBC, MG, NORMA #### [place] [address] USAMean Corpuscular HGB Conc31.4 g/dLLow32.0-35.0The [facility] Physician GroupComment on above:Performed By: #### LIPASE, CMP, HS TROP, SCAN CBC, MG, NORMA #### [place] [address] USAPlatelet mean volume (Bld) [Entitic vol]7.0 fLNormal 6.3-10.7The [facility] Physician GroupComment on above:Result Comment: PERFORMED BY: [place] [address] PATHOLOGIST [employer] REVIEWER JORGE MURRELL M.D.Performed By: #### LIPASE, CMP, HS TROP, SCAN CBC, MG, NORMA #### [place] [address] USAPlatelets (Bld) [#/Vol]333 10*3/zHEennxp868-822Tym [facility] Physician GroupComment on above:Performed By: #### LIPASE, CMP, HS TROP, SCAN CBC, MG, NORMA #### [place] [address] USARBC (Bld) [#/Vol]4.48 10*6/uLNormal3.60-5.00The [facility] Physician GroupComment on above:Performed By: #### LIPASE, CMP, HS TROP, SCAN CBC, MG, NORMA #### [place] [address] USAWBC (Bld) [#/Vol]10.0 10*3/uLNormal3.8-11.6The [facility] Physician GroupComment on above:Performed By: #### LIPASE, CMP, HS TROP, SCAN CBC, MG, NORMA #### [place] [address] USALactoferrin, Stool WBCon 89-91-9380Ydychnbvonc, Stool WBC LACTOFERRIN Positive for Fecal Lactoferrin Review patient history for chronic inflammatory conditions and status which can cause positive results unrelated to acute infectious disease. Reference range = Negative PERFORMED BY: [place] [address] PATHOLOGIST V[employer] REVIEWER JORGE MURRELL M.D.[facility] Physician GroupComment on above:Performed By: #### CDT, LACTO SWBC #### [facility] [address] [place] [address] USAMagnesium [Mass/volume] in Serum or PlasmaOrdered By: Lucho Grullon on 74-91-0526Apxcuogxc [Mass/Vol]1.5 mg/dLLow1.9-2.7FOhioHealth Hardin Memorial HospitalComment on above:Result Comment: PERFORMED BY: [place] [address] PATHOLOGIST V[employer] APPEALS REVIEWER JORGE MURRELL M.D.Performed By: #### LIPASE, CMP, HS TROP, SCAN CBC, MG, NORMA #### [facility] [address] [place] [address] USAStool Cultureon 75-34-9621Vhzqm cultureNegative for Shiga Toxin 1 Negative for Shiga Toxin 2 A negative Shiga Toxin result may occur if the antigen level in the specimen is below the detection limit of the assay. Stool culture results No Salmonella, Shigella, Campy or E. coli 0157:H7 Isolated PERFORMED BY: [address] [address] PATHOLOGIST [employer] REVIEWER JORGE MURRELL M.D.[facility] Physician GroupComment on above:Performed By: #### LIPASE, CMP, HS TROP, SCAN CBC, MG, NORMA #### [facility] [address] [place] [address] USAStool bacteria identification by cultureOrdered By: Lucho Grullon on 85-24-9435Adotubeo identified Cx Nom ([facility] Hospitaltool lactoferrin detectionOrdered By: Lucho Grullon on 02-15-2024 Lactoferrin Ql ([facility] HospitalUS venous duplex LE RTon 77-42-1104LR venous duplex LE RTREGENC[facility] [place] [address] [place] [id number] Ultrasound Report Signed Patient: Gera Perdue MR#: [id number] : 1945 Acct:[id number] Age/Sex: 78 / F ADM Date: 02/14/24 Loc: Room: [address] [place] [address] Type: ADM IN Attending Dr: Lucho Grullon [...] Hilario Angulo MD02/15/2024 11:55 AM Dictation Location: [facility]-DOC-04 Tech: Elizabeth Casillasgifty Transcribed By: ANA 02/15/24 1155 Dictated By: Hilario Angulo MD 02/15/24 1154 Signed By: 02/15/24 1155[facility] Physician GroupAlanine aminotransferase [Enzymatic activity/volume] in Serum or PlasmaOrdered By: Kadie Bullimore on [id number] [Catalytic activity/Vol]5 U/LLow7-52Brecks[facility] Va / Crille HospitalComment on above:Performed By: #### LIPASE, CMP, HS TROP, SCAN CBC, MG, NORMA #### [facility] [address] [id number] USAAlbumin [Mass/volume] in Serum or Plasma by Bromocresol green (BCG) dye binding methoOrdered By: Kadie Bullimore on [id number] BCG dye [Mass/Vol]3.7 g/dL3.5-5.7FOhioHealth [facility]in Memorial HospitalAlkaline phosphatase [Enzymatic activity/volume] in Serum or PlasmaOrdered By: Kadie Bullimore on 98-33-5601EPE [Catalytic activity/Vol]75 U/HCsjakm57-313UotywxgsdBrecksville Va / Crille HospitalComment on above:Performed By: #### LIPASE, CMP, HS TROP, SCAN CBC, MG, NORMA #### [facility] [address] [place] [id number] USAAmylase [Enzymatic activity/volume] in Serum or Plasma Ordered By: Kadie Hungjessicaore on 09-92-8033Bsfdztx [Catalytic activity/Vol]10 U/L Krt75-943QlmhjekrwBrecksville Va / Crille HospitalComment on above:Performed By: #### LIPASE, CMP, HS TROP, SCAN CBC, MG, NORMA #### [facility] [address] [place] [id number] USAAspartate aminotransferase [Enzymatic activity/volume] in Serum or PlasmaOrdered By: Kadie Bullimore on 93-20-0088CRY [Catalytic activity/Vol]11 U/OQmy60-45HbbubtqwlBrecksville Va / Crille HospitalComment on above: Performed By: #### LIPASE, CMP, HS TROP, SCAN CBC, MG, NORMA #### [place] [address] USAAutomated basophil %Ordered By: Kadie Bullimore on 28-33-6867Cuwcdphiy/100 WBC (Bld)0.9 %Normal.[facility] Comment on above:Performed By: #### LIPASE, CMP, HS TROP, SCAN CBC, MG, NORMA #### [place] [address] USAAutomated basophil countOrdered By: Kadie Bullimore on 71-07-1189Wwuhasmhp (Bld) [#/Vol]0.1 10*3/uLNormal0.0-0.2FOhioHealth Hardin Memorial HospitalComment on above:Result Comment: PERFORMED BY: [place] [address] PATHOLOGIST V[employer] REVIEWER JORGE MURRELL M.D.Performed By: #### LIPASE, CMP, HS TROP, SCAN CBC, MG, NORMA #### [place] [address] USAAutomated blood monocyte countOrdered By: Kadie Bullimore on 11-95-0076Xsdqwpypg (Bld) [#/Vol]1.7 10*3/uLHigh0.0-0.8Brecksville Va / Crille HospitalComment on above:Performed By: #### LIPASE, CMP, HS TROP, SCAN CBC, MG, NORMA #### [place] [address] USAAutomated eosinophil %Ordered By: Kadie Bullimore on 61-58-6888Crocozjrfua/100 WBC (Bld)0.4 %Normal.[facility] Comment on above:Performed By: #### LIPASE, CMP, HS TROP, SCAN CBC, MG, NORMA #### [place] [address] USAAutomated eosinophil countOrdered By: Kadie Bullimore on 23-24-7057Duqppxgbjnw (Bld) [#/Vol]0.0 10*3/uLNormal0.0-0.45Brecksville Va / Crille HospitalComment on above:Performed By: #### LIPASE, CMP, HS TROP, SCAN CBC, MG, NORMA #### [facility] [address] [place] [address] USAAutomated erythrocytes count in urine sediment (number/area)Ordered By: Kadie Jones on 93-61-5558ZMT Auto (Urine sed) [#/Area]0-1 [HPF]0-4FOhioHealth Hardin Memorial HospitalAutomated leukocytes count in urine sediment (number/area)Ordered By: Kadie Hungimore on 65-47-4814OKR Auto (Urine sed) [#/Area]50-100 [HPF]0-4FOhioHealth Hardin Memorial Hospital Automated monocyte %Ordered By: Kadie Jones on 35-69-1567Jbvesabtj/100 WBC (Bld)12.3 %Normal.[facility] / Crille HospitalComment on above:Performed By: #### LIPASE, CMP, HS TROP, SCAN CBC, MG, NORMA #### [facility] [address] [place] [address] USAAutomated neutrophil %Ordered By: Kadie Jones on 89-18-9248Httlhpxppys/100 WBC (Bld)62.7 %Normal.[facility] / Crille HospitalComment on above:Performed By: #### LIPASE, CMP, HS TROP, SCAN CBC, MG, NORMA #### [facility] [address] [place] [address] USAAutomated urine color determinationOrdered By: Kadie Jones on 08-83-7725Dikgj (U)Dark yellowCritically abnormalYellowBrecksville Va / Crille HospitalComment on above:Order Comment: Name Collection Type:: Straight CatheterPerformed By: #### LIPASE, CMP, HS TROP, SCAN CBC, MG, NORMA #### [facility] [address] [place] [address] USABNP ser/plasOrdered By: Kadie Jones on 02-14-2024 Natriuretic peptide B (Bld) [Mass/Vol]29.0 pg/mLNormal5-100Brecksville Va / Crille HospitalComment on above:Result Comment: PERFORMED BY: [place] [address] PATHOLOGIST V[employer] REVIEWER JORGE MURRELL M.D.Performed By: #### LIPASE, CMP, HS TROP, SCAN CBC, MG, NORMA #### [facility] [address] [place] [address] USABilirubin Test strip Ql (U)Ordered By: Kadie Jones on 35-57-8337Haywfxggn Ql (U)NegativeNegativeBrecksville Va / Crille Hospital Bilirubin.total [Mass/volume] in Serum or PlasmaOrdered By: Kadie Jones on 06-58-9717Pqijsoxml [Mass/Vol]0.5 mg/dLNormal0.3-1.0Brecksville Va / Crille HospitalComment on above:Performed By: #### LIPASE, CMP, HS TROP, SCAN CBC, MG, NORMA #### [place] [address] USABlood Cultureon 42-24-2896Xmuxcnap identified Cx Nom (Bld) NO GROWTH 5 DAYS PERFORMED BY: [place] [address] PATHOLOGIST VET[employer]AN APPEALS REVIEWER JORGE MURRELL M.D.[facility] Physician GroupComment on above:Performed By: #### LIPASE, CMP, HS TROP, SCAN CBC, MG, NORMA #### [place] [address] USABacteria identified Cx Nom (Bld)NO GROWTH 5 DAYS PERFORMED BY: [place] [address] PATHOLOGIST V[employer]AN APPEALS REVIEWER JORGE MURRELL M.D.[facility] Physician GroupComment on above:Performed By: #### LIPASE, CMP, HS TROP, SCAN CBC, MG, NORMA #### [facility] [address] [place] [address] USACOVID CepheidOrdered By: Kadie Jones on 02-14-2024 SARS-CoV-2 (COVID-19) Ab IA QlNegativeNegMemorial Health System Marietta [facility] Comment on above:This is a duplicate Cepheid Xpert Xpress CoV-2/Flu/RSV Plus RNA by RT-PCR result to be used for statistical tracking purpose only.SARS-CoV-2 (COVID-19) RNA ELIZABETH+probe Ql (Unsp spec)B[facility]ksville [facility] / Crille HospitalCOVID-19 / Flu A/B / RSV PCRon 95-00-4789QIVD-CoV-2 (COVID-19) RNA ELIZABETH+probe Ql (Unsp spec)COVID-19 Cepheid Result Negative for SARS-CoV-2 RNA by RT-PCR Flu A Cepheid Result Negative for Flu A RNA by RT-PCR Flu B Cepheid Result Negative for Flu B RNA by RT-PCR RSV Cepheid Result Negative for RSV RNA by RT-PCR COVID19 Blank Space Reference: Negative COVID19 Blank Space Cepheid Disclaimer The Cepheid Xpert Xpress CoV-2/Flu/RSV [...] or Cepheid Disclaimer revoked sooner. PERFORMED BY: [address] [address] PATHOLOGIST VETERAN APPEALS REVIEWER JORGE MURRELL M.D.NormalNorth Okaloosa Medical Center Physician GroupComment on above:Performed By: #### CEPHEID NEG, COVID19 FLU RSV #### [address] [address] USACT abdomen pelvis w conon 47-92-3552TB abdomen pelvis w [facility] [place] [address] [place] [address] Scan Report Signed Patient: Gera Perdue MR#: [id number] : 1945 Acct:[id number] Age/Sex: 78 / F ADM Date: 02/14/24 Loc: ER Room: Type: [facility] ER Attending Dr: Copies to: CHIP [...] Bhavesh Avendaño M.D.02/14/2024 2:21 PM Dictation Location: [place] [address] Transcribed By: [facility] 02/14/24 1421 Dictated By: Bhavesh Avendaño II, MD 02/14/24 1411 Signed By: 02/14/24 1421NoAdventHealth Hendersonville Physician GroupCalcium [Mass/volume] in Serum or PlasmaOrdered By: Kadie Jones on 16-95-4555Jhogbrh [Mass/Vol]9.5 mg/dL Normal8.6-10.3FOhioHealth Hardin Memorial HospitalComment on above:Performed By: #### LIPASE, CMP, HS TROP, SCAN CBC, MG, NORMA #### [place] [address] USACarbon dioxide, total [Moles/volume] in Serum or Plasma Ordered By: Kadie Jones on 05-91-3334OH1 [Moles/Vol]30.8 mmol/LNormal 21.0-31.0Brecksville Va / Crille HospitalComment on above:Performed By: #### LIPASE, CMP, HS TROP, SCAN CBC, MG, NORMA #### [place] [address] USACepheid COVID PCR Negativeon 01-50-1345WAUB-CoV-2 (COVID- 19) RNA ELIZABETH+probe Ql (Unsp spec)NegativeNormalNegativeThe [facility]slow [facility] Physician GroupComment on above:Result Comment: This is a duplicate Cepheid Xpert Xpress CoV-2/Flu/RSV Plus RNA by RT-PCR result to be used for statistical tracking purpose only. PERFORMED BY: [place] [address] PATHOLOGIST V[employer]AN APPEALS REVIEWER JORGE MURRELL M.D.Performed By: #### CEPHEID NEG, COVID19 FLU RSV #### [place] [address] USAChloride [Moles/volume] in Serum or PlasmaOrdered By: Kadie Jones on 1945Hodbmycu [Moles/Vol]97 mmol/DZun48-313SwoxudbhxBrecksville Va / Crille HospitalComment on above:Performed By: #### LIPASE, CMP, HS TROP, SCAN CBC, MG, NORMA #### [place] [address] USAComprehensive Metabolic Panelon 66-63-3108Mdfemie [Mass/Vol]3.7 g/dLNormal3.5-5.7The [facility] Physician GroupComment on above: Performed By: #### LIPASE, CMP, HS TROP, SCAN CBC, MG, NORMA #### [place] [address] USACreatinine Clr Calc Hzczxljy36.86NormalThe [facility] Hospital Physician GroupComment on above:Performed By: #### LIPASE, CMP, HS TROP, SCAN CBC, MG, NORMA #### [facility] [address] [place] [address] USAGFR/1.73 sq M.predicted MDRD (S/P/Bld) [Vol rate/Area] 41.325 mL/min/{1.73_m2}NormalNorth Okaloosa Medical Center Physician GroupComment on above: Performed By: #### LIPASE, CMP, HS TROP, SCAN CBC, MG, NORMA #### [facility] [address] [place] [address] USACreatinine [Mass/volume] in Serum or PlasmaOrdered By: Kadie Jones on 71-80-7505Liqmkctgwc [Mass/Vol]1.32 mg/dLHigh0.60-1.20 [facility] / Crille HospitalComment on above:Performed By: #### LIPASE, CMP, HS TROP, SCAN CBC, MG, NORMA #### [facility] [address] [place] [address] USADipstick and Microscopicon 21-48-9312Odlavbudqz (U)Clear NormalCleNemours Children's Hospital Physician GroupComment on above:Order Comment: Name Collection Type:: Straight CatheterPerformed By: #### LIPASE, CMP, HS TROP, SCAN CBC, MG, NORMA #### [place] [address] USABacteria,Urine4+HighNone SeenThe [facility]slow [facility] Hospital Physician Group Comment on above:Order Comment: Name Collection Type:: Straight Catheter Performed By: #### LIPASE, CMP, HS TROP, SCAN CBC, MG, NORMA #### [facility] [address] [place] [address] USABilirubin,UrineNegativeNormalNegativeNorth Okaloosa [facility] Center Physician GroupComment on above:Order Comment: Name Collection Type:: Straight CatheterPerformed By: #### LIPASE, CMP, HS TROP, SCAN CBC, MG, NORMA #### [place] [address] USAGlucose Ql (U)NormalNormalNormalThe [facility] Physician GroupComment on above:Order Comment: Name Collection Type:: Straight Catheter Performed By: #### LIPASE, CMP, HS TROP, SCAN CBC, MG, NORMA #### [facility] [address] [place], [place] [id number] USAHyaline Casts,Urjye2-45Ypmn2-6Ezl [facility] Physician GroupComment on above:Order Comment: Name Collection Type:: Straight Catheter Result Comment: PERFORMED BY: [place] [address] PATHOLOGIST V[employer]AN APPEALS REVIEWER JORGE MURRELL M.D.Performed By: #### LIPASE, CMP, HS TROP, SCAN CBC, MG, NORMA #### [place] [address] USAKetones Ql (U)TraceHighNegativeNorth Okaloosa Medical Center Physician GroupComment on above:Order Comment: Name Collection Type:: Straight Catheter Performed By: #### LIPASE, CMP, HS TROP, SCAN CBC, MG, NORMA #### [place] [address] USALeukocyte esterase Test strip Ql (U)3+HighNegativeNorth Okaloosa Medical Center Physician GroupComment on above:Order Comment: Name Collection Type:: Straight CatheterPerformed By: #### LIPASE, CMP, HS TROP, SCAN CBC, MG, NORMA #### [place] [address] USANitrite,UrinePositiveHighNegativeNorth Okaloosa Medical Center Physician GroupComment on above:Order Comment: Name Collection Type:: Straight Catheter Performed By: #### LIPASE, CMP, HS TROP, SCAN CBC, MG, NORMA #### [place] [address] USAOccult Blood,UrineTraceHighNegativeNorth Okaloosa [facility] Center Physician GroupComment on above:Order Comment: Name Collection Type:: Straight Catheter Result Comment: PERFORMED BY: [place] [address] PATHOLOGIST V[employer] REVIEWER JORGE MURRELL M.D.Performed By: #### LIPASE, CMP, HS TROP, SCAN CBC, MG, NORMA #### [place] [id number] USARBC LM.HPF (Urine sed) [#/Area]0 /[HPF]Normal0-4The [facility] Physician GroupComment on above:Order Comment: Name Collection Type:: Straight CatheterPerformed By: #### LIPASE, CMP, HS TROP, SCAN CBC, MG, NORMA #### [facility] [address] [place] [address] USASpecificy [place],Urine1.888Kkrhiv9.001-1.030The [facility] Physician GroupComment on above:Order Comment: Name Collection Type:: Straight CatheterPerformed By: #### LIPASE, CMP, HS TROP, SCAN CBC, MG, NORMA #### [facility] [address] [place] [address] USASquamous Epithelial Cell,UrineNone SeenNormal0-2The [facility] Physician GroupComment on above:Order Comment: Name Collection Type:: Straight CatheterPerformed By: #### LIPASE, CMP, HS TROP, SCAN CBC, MG, NORMA #### [place] [address] USAUrobilinogen,UrineNormalNormalNormalThe [facility] Physician GroupComment on above:Order Comment: Name Collection Type:: Straight CatheterPerformed By: #### LIPASE, CMP, HS TROP, SCAN CBC, MG, NORMA #### [facility] [address] [place] [address] USAWBC,Yxlxi18-926Dxwt4-4Xdo [facility] Physician GroupComment on above:Order Comment: Name Collection Type:: Straight CatheterPerformed By: #### LIPASE, CMP, HS TROP, SCAN CBC, MG, NORMA #### [place] [address] USAECG 12 lead ECGon 50-79-8096HDV 12 lead ECGREGENCY H[facility] [place] [address] [place] [address] Electrocardiograph Report Signed Patient: Gera Perdue MR#: [id number] : 1945 Acct:[id number] Age/Sex: 78 / F ADM Date: 02/14/24 Loc: ER Room: Type: [facility] ER Attending Dr: Ordering Provider: CHIP [...] No significant change was found Confirmed by SMOOTH DOMINGUEZ DO ([id number]) on 02/14/2024 3:23:36 PM Referred By: Electronically Signed By:SMOOTH DOMINGUEZ DO Transcribed By: MUS Signed By Smooth Dominguez DO 02/13 1523[facility] Physician GroupErythrocyte distribution width [Ratio] by Automated countOrdered By: Kadie Jones on 20-53-3848Nsaosjlcslc distribution width (RBC) [Ratio]18.4 %High11.9-15.3FOhioHealth Hardin Memorial HospitalComment on above:Performed By: #### LIPASE, CMP, HS TROP, SCAN CBC, MG, NORMA #### [facility] [address] [place] [id number] USAErythrocytes [#/volume] in Blood by Automated countOrdered By: Kadie Jones on 94-15-3770TTA (Bld) [#/Vol]5.04 10*6/uLHigh3.60-5.00 [facility] Cr[facility] HospitalComment on above:Performed By: #### LIPASE, CMP, HS TROP, SCAN CBC, MG, NORMA #### [facility] [address] [place] [id number] USAGlucose [Mass/volume] in Serum or PlasmaOrdered By: Kadie Jones on 62-59-0909Dwzjvjb [Mass/Vol]85 mg/oTTvzobc87-840FarfpkbnpBrecksville Va / Crille HospitalComment on above:ADA recommended reference rangeRandom Glucose Reference Range is dependent on time and content of last meal. Glucose of more than 200 mg/dL in a nonstressed, ambulatory subject supports the diagnosisof Diabetes Mellitus.Result Comment: Random Glucose Reference Range is dependent on time and content of last meal. Glucose of more than 200 mg/dL in a nonstressed, ambulatory subject supports the diagnosis of Diabetes Mellitus. ADA recommended reference rangePerformed By: #### LIPASE, CMP, HS TROP, SCAN CBC, MG, NORMA #### [facility] [address] [place] [id number] USAHematocrit [Volume Fraction] of Blood by Automated count Ordered By: Kdaie Jones on 34-14-7702Xcbgsjpaxj (Bld) [Volume fraction]38.5 %Sgfjdm49.0-46.4FOhioHealth Hardin Memorial HospitalComment on above:Performed By: #### LIPASE, CMP, HS TROP, SCAN CBC, MG, NORMA #### [place] [address] USAHemoglobin [Mass/volume] in BloodOrdered By: Kadie Jones on 43-98-0351Vcybnkrfuc (Bld) [Mass/Vol]12.2 g/xQWbimou52.8-15.4 [facility] HospitalComment on above:Performed By: #### LIPASE, CMP, HS TROP, SCAN CBC, MG, NORMA #### [place] [id number] USAKetones Auto test strip (U) [Mass/Vol]Ordered By: Kadieroxie Jones on 79-09-2402Djymscu (U) [Mass/Vol]TraceNegativeBrecksville Va / Crille HospitalLaboratory - UrinalysisOrdered By: Kadie Jones on 02-14-2024 Hyaline casts LM Ql (Urine sed)9 [LPF]0-8[facility] Lactate [Moles/volume] in Serum or PlasmaOrdered By: [facility] Abhilashsaint luke institute on 06-32-1944Rdugmaw [Moles/Vol]0.8 mmol/LNormal0.5-2.2FOhioHealth Hardin Memorial HospitalComment on above:Result Comment: PERFORMED BY: [place] [id number] PATHOLOGIST VET[employer]AN APPEALS REVIEWER JORGE MURRELL M.D.Performed By: #### LIPASE, CMP, HS TROP, SCAN CBC, MG, NORMA #### [place] [id number] USALeukocytes [#/volume] corrected for nucleated erythrocytes in Blood by Automated counOrdered By: Kadie Hungimore on 40-15-4772WFA corrected for nucl RBC Auto (Bld) [#/Vol]13.6 10*3/uL3.8-11.6FOhioHealth Hardin Memorial HospitalLeukocytes [#/volume] in Blood by Automated countOrdered By: Kadie Abhilashimore on 20-12-5948THR (Bld) [#/Vol]13.6 10*3/uLHigh3.8-11.6FOhioHealth Hardin Memorial HospitalComment on above:Performed By: #### LIPASE, CMP, HS TROP, SCAN CBC, MG, NORMA #### [place] [address] USALipase [Enzymatic activity/volume] in Serum or Plasma Ordered By: Kadie Jones on 64-01-0940Lvvpuw [Catalytic activity/Vol]6.0 U/L Low11.0-82.0Brecksville Va / Crille HospitalComment on above:Result Comment: PERFORMED BY: [place] [address] PATHOLOGIST V[employer] REVIEWER JORGE MURRELL M.D.Performed By: #### LIPASE, CMP, HS TROP, SCAN CBC, MG, NORMA #### [place] [id number] USALymphocytes [#/volume] in Blood by Automated countOrdered By: Kadie Jones on 90-53-3788Numoclerznt (Bld) [#/Vol]3.2 10*3/uLNormal 1.00-4.8B[facility]ville [facility] Crille HospitalComment on above:Performed By: #### LIPASE, CMP, HS TROP, SCAN CBC, MG, NORMA #### [facility] [address] [place], [place] [id number] USALymphocytes/100 leukocytes in Blood by Automated count Ordered By: Kadie Jones on 66-05-5128Wqyanctllwb/100 WBC (Bld)23.7 %Normal. [facility] / Crille HospitalComment on above:Performed By: #### LIPASE, CMP, HS TROP, SCAN CBC, MG, NORMA #### [facility] [address] [Entitic mass] by Automated countOrdered By: Kadie Bullimore on 19-90-6739VVS (RBC) [Entitic mass]24.3 pgLow24.7-34.3FOhioHealth Hardin Memorial HospitalComment on above:Performed By: #### LIPASE, CMP, HS TROP, SCAN CBC, MG, NORMA #### [facility] [address] Auto (RBC) [Mass/Vol]Ordered By: Kadie Bullimore on 89-28-8320LXEQ (RBC) [Mass/Vol]31.8 g/dL32.0-35.0Brecksville Va / Crille HospitalMCV [Entitic volume] by Automated countOrdered By: Kadie Bullimore on 77-84-2614OPQ (RBC) [Entitic vol]76.4 gKNpu97-691GotmpuandBrecksville Va / Crille HospitalComment on above:Performed By: #### LIPASE, CMP, HS TROP, SCAN CBC, MG, NORMA #### [facility] [address] [place] [address] USAMagnesium [Mass/volume] in Serum or PlasmaOrdered By: Kadie Bullimore on 58-77-0138Fxvrsdvao [Mass/Vol]1.1 mg/dLLow1.9-2.7FOhioHealth Hardin Memorial HospitalComment on above:Performed By: #### LIPASE, CMP, HS TROP, SCAN CBC, MG, NORMA #### [facility] [address] [place] [address] USAMonocyte distribution width [Entitic volume] in Blood by AutomatedOrdered By: Kadie Bullimore on 91-71-3518Hgshvpju distribution width Auto (Bld) [Entitic vol]25.16 %0.00-20.00[facility] Comment on above:For adults in ED, MDW > 20.0 may be associated with a higher risk of sepsis during the first 12 hrs of hospital admissionNeutrophils [#/volume] in Blood by Automated countOrdered By: Kadie Bullimore on 02-14-2024 Neutrophils (Bld) [#/Vol]8.5 10*3/uLHigh1.8-7.7FOhioHealth Hardin Memorial Hospital Comment on above:Performed By: #### LIPASE, CMP, HS TROP, SCAN CBC, MG, NORMA #### [facility] [address] [place] [address] USANitrite Test strip Ql (U)Ordered By: Kadie Karen on 32-46-7525Zrdhche Ql (U)PositiveNegativeBrecksville Va / Crille HospitalNo Panel InformationOrdered By: Kadie Karen on 47-41-8118Tdwgwyqzn GFR (CKD-EPI)41.325 mL/MinBrecksville Va / Crille HospitalPharmacy Creatinine Clearance (Chem32.86Brecksville Va / Crille HospitalNucleated erythrocytes [Presence] in Blood by Automated countOrdered By: Kadie Karen on 02-14-2024 Nucleated RBC Auto Ql (Bld)0.1 /100{WBC}0-0.5FOhioHealth Hardin Memorial Hospital Platelet adequacy [Presence] in Blood by Light microscopyOrdered By: Kadie Hunglamonte on 24-03-1887Cunyjhule LM Ql (Bld)NormalNormMercy Health St. Vincent Medical CenterPlatelet mean volume [Entitic volume] in Blood by Automated count Ordered By: Kadie Hunglamonte on 48-48-7031Nvzbccee mean volume (Bld) [Entitic vol]7.0 fLNormal6.3-10.7FOhioHealth Hardin Memorial HospitalComment on above: Performed By: #### LIPASE, CMP, HS TROP, SCAN CBC, MG, NORMA #### [facility] [address] [place] [address] USAPlatelet morphology finding [Identifier] in BloodOrdered By: Kadie Hungimore on 67-94-5169Lgcmdszw morphology finding Nom (Bld)Normal NormalBrecksville Va / Crille HospitalPlatelets [#/volume] in Blood by Automated countOrdered By: Kadie Hungimore on 96-26-1357Vupilbeee (Bld) [#/Vol] 448 10*3/qPXznbjj252-210XydraubqfBrecksville Va / Crille HospitalComment on above: Performed By: #### LIPASE, CMP, HS TROP, SCAN CBC, MG, NORMA #### [place] [address] USAPotassium [Moles/volume] in Serum or PlasmaOrdered By: Kadie Bullimore on 43-64-6890Lnhhkkkoy [Moles/Vol]4.0 mmol/LNormal3.5-5.1 [facility] Crille HospitalComment on above:Performed By: #### LIPASE, CMP, HS TROP, SCAN CBC, MG, NORMA #### [place] [address] USAProtein [Mass/volume] in Serum or PlasmaOrdered By: Kadie Bullimore on 71-72-0600Pwwwrmv [Mass/Vol]7.9 g/dLNormal6.4-8.9B[facility] / Crille HospitalComment on above:Performed By: #### LIPASE, CMP, HS TROP, SCAN CBC, MG, NORMA #### [place] [address] USARBC morphologyOrdered By: Kadie Bullimore on 02-14-2024 RBC morphology finding Nom (Bld)NormalNormalNormalBrecksville Va / Crille HospitalComment on above:Performed By: #### LIPASE, CMP, HS TROP, SCAN CBC, MG, NORMA #### [place] [address] USAScan and CBCon 77-49-8759Qolv Corpuscular HGB Conc31.8 g/dLLow32.0-35.0The [facility] Physician GroupComment on above:Performed By: #### LIPASE, CMP, HS TROP, SCAN CBC, MG, NORMA #### [place] [address] USAMonocytes/100 WBC (Bld)25.16 %High0.00-20.00The [facility] Physician GroupComment on above:Result Comment: For adults in ED, MDW > 20.0 may be associated with a higher risk of sepsis during the first 12 hrs of hospital admissionPerformed By: #### LIPASE, CMP, HS TROP, SCAN CBC, MG, NORMA #### [place] [id number] USANRBC%0.1 /100{WBC}Normal0-0.5[facility]ician Group Comment on above:Performed By: #### LIPASE, CMP, HS TROP, SCAN CBC, MG, NORMA #### [place] [address] USAPlatelet EstimateNormalNormalNormTallahassee Memorial HealthCare Physician GroupComment on above:Performed By: #### LIPASE, CMP, HS TROP, SCAN CBC, MG, NORMA #### [place] [address] USAPlatelet MorphologyNormalNormalNoAdventHealth Hendersonville Physician GroupComment on above:Result Comment: PERFORMED BY: [place] [address] PATHOLOGIST [employer] REVIEWER JORGE MURRELL M.D.Performed By: #### LIPASE, CMP, HS TROP, SCAN CBC, MG, NORMA #### [place] [address] USASerum globulin measurement by calculation (mass/volume) Ordered By: Kadie Bullimore on 16-04-1733Hwbxsxmp (S) [Mass/Vol]4.2 g/dLNoal [facility] HospitalComment on above:Performed By: #### LIPASE, CMP, HS TROP, SCAN CBC, MG, NORMA #### [place] [address] USASerum or plasma albumin/globulin mass ratioOrdered By: Kadie Bullimore on 22-22-8234Dwhvjgs/Globulin [Mass ratio]0.9 {ratio}Normal [facility] Crille HospitalComment on above:Performed By: #### LIPASE, CMP, HS TROP, SCAN CBC, MG, NORMA #### [place] [address] USASerum or plasma anion gap determinationOrdered By: Kadie Bullimore on 94-83-1486Ftzpc gap [Moles/Vol]14.2 mmol/LNormal6.0-15.0B[facility]ksville Va / Crille HospitalComment on above:Performed By: #### LIPASE, CMP, HS TROP, SCAN CBC, MG, NORMA #### [facility] [address] [place] [address] USASodium [Moles/volume] in Serum or PlasmaOrdered By: Kadie Hungimtulio on 48-69-1972Xowirg [Moles/Vol]138 mmol/KOftang002-538NpxuyfwcoBrecksville Va / Crille HospitalComment on above:Performed By: #### LIPASE, CMP, HS TROP, SCAN CBC, MG, NORMA #### [place] [address] USASpecific gravity Auto test strip (U) [Rel density]Ordered By: Kadieroxie Jones on 53-17-7485Owndckua gravity (U) [Rel density]1.024 1.001-1.030Marymount Hospitalquamous epithelial cells detection in urine sediment by light microscopyOrdered By: Kadie Jones on 02-14-2024 Epithelial cells.squamous LM Ql (Urine sed)None seen [HPF]0-2FOhioHealth Hardin Memorial HospitalTroponin I High Sensitivityon 66-43-9775Bytnoawe I High Sensitivity6.5 pg/mLNormal0.0-15.0[facility] Physician GroupComment on above: Result Comment: PERFORMED BY: [place] [address] PATHOLOGIST VETERAN APPEALS REVIEWER JORGE MURRELL M.D.Performed By: #### LIPASE, CMP, HS TROP, SCAN CBC, MG, NORMA #### [place] [address] USATroponin I.cardiac [Mass/volume] in Serum or Plasma by Detection limit <= 0.01 ng/Ordered By: Kadie Jones on 44-98-3074Wbpvmbbx I.cardiac DL <= 0.01 ng/mL [Mass/Vol]6.5 pg/mL0.0-15.0Brecksville Va / Crille HospitalUrea nitrogen [Mass/volume] in Serum or PlasmaOrdered By: Kadie Bullimore on 30-02-0841Noww nitrogen [Mass/Vol]18 mg/dLNormal7-25Brecksville Va / Crille HospitalComment on above:Performed By: #### LIPASE, CMP, HS TROP, SCAN CBC, MG, NORMA #### [facility] [address] [place] [id number] USAUrine Cultureon 00-85-5379Acjedrbg identified Cx Nom (U) ORGANISM: Klebsiella pneumoniae (O:KLEPNE) Bailey Count >100,000 Aerobic NATALIA Charge (NMIC56) SUSCEPTIBILITY [...] >8 Tigecycline S <2 Tobramycin S <2 Trimethoprim/Sulfamethoxazole S <0.5 S = SUSCEPTIBLE I = [...] RESISTANT TO ALL B-LACTAM DRUGS. PERFORMED BY: [place] [address] PATHOLOGIST VETERAN APPEALS REVIEWER JORGE MURRELL M.D.NormalNorth Okaloosa Medical Center Physician GroupComment on above:Performed By: #### LIPASE, CMP, HS TROP, SCAN CBC, MG, NORMA #### [facility] [address] [id number] USAUrine bacteria detection by automated methodOrdered By: Kadie Jones on 21-38-8661Xvlwyqrl Auto Ql (U)4+None SeenBrecksville Va / Crille HospitalUrine clarity by refractometry automatedOrdered By: Kadie Jones on 79-52-9630Wxvooha Refractometry automated (U)ClearCleMercy HealthUrine culture routineOrdered By: Kadie Jones on 68-93-7655Wdovxmmf identified Cx Nom (U)Klebsiella pneumoniaeBrecksville Va / Crille HospitalUrine glucose measurement by automated test strip (mass/volume) Ordered By: Kadie Jones on 45-19-7562Kehvtpz Auto test strip (U) [Mass/Vol] Normal mg/dLNoShelby Memorial HospitalUrine hemoglobin detection by automated test stripOrdered By: Kadie Jones on 57-06-2493Myswxvmyaw Auto test strip Ql (U)TraceNegativeBrecksville Va / Crille HospitalUrine leukocyte esterase detection by automated test stripOrdered By: Kadie Jones on 85-70-6349Mcwbswbeu esterase Auto test strip Ql (U)3+NegativeBrecksville Va / Crille HospitalUrine pH measurement by automated test stripOrdered By: Kadie Jones on 60-16-4570nG (U)5.5 [pH]Normal5.0-9.0B[facility] Va / Crille HospitalComment on above:Order Comment: Name Collection Type:: Straight Catheter Performed By: #### LIPASE, CMP, HS TROP, SCAN CBC, MG, NORMA #### [facility] [address] [id number] USAUrine protein measurement by automated test strip (mass/volume)Ordered By: Kadie Jones on 53-86-7690Lyzrgtu (U) [Mass/Vol]30 mg/dLHighNegMemorial Health System Marietta Memorial HospitalComment on above:Order Comment: Name Collection Type:: Straight CatheterPerformed By: #### LIPASE, CMP, HS TROP, SCAN CBC, MG, NORMA #### [facility] [address] [place] [address] USAUrobilinogen Auto test strip (U) [Mass/Vol]Ordered By: Kadie Jones on 29-68-3926Cwljmkemoxig (U) [Mass/Vol]Normal mg/dLSelect Medical Trihealth Rehabilitation HospitalXR chest 1V portableon 40-35-7343MC chest 1V portableREGENCY HOS[facility] Main [place] [address] [place] [address] XRay Report Signed Patient: Gera Perdue MR#: [id number] : 1945 Acct:[id number] Age/Sex: 78 / F ADM Date: 02/14/24 Loc: ER Room: Type: [facility] ER Attending Dr: Copies to: CHIP [...] Bhavesh Avendaño M.D.02/14/2024 12:59 PM Dictation Location: [place] [address] Transcribed By: [facility] 02/14/24 1259 Dictated By: Bhavesh Avendaño II, MD 02/14/24 1257 Signed By: 02/14/24 1259[facility] Physician GroupC Urineon 39-71-0329Veiytvii identified Cx Nom (U)Microbiology PROCEDURE: Urine Culture [R1] SOURCE: U Random [...] This test was performed at: [facility], [address] [place] [address], [address] , [place], KmtyldHgzeyjOhioHealth Arthur G.H. Bing, MD, Cancer CenterComment on above:Performed By: #### [id number] #### [facility] [address] [place] [address]Ogkqgvk 60-99-0160Bkzdy [id number]#1.00[facility] HospitalPhysician Referralon 33-72-3097Gtaxkvncp Referral [id number]#1.00[facility] HospitalAmbulatory Visit Summaryon 99-88-4989Ixglcdtwgg Visit Summary EGRA PERDUE :1945 Visit Date:01/30/2024 Ambulatory Visit Instructions Your Diagnosis Chronic kidney disease (CKD), stage III (moderate) Female incontinence Your Care Team Attending Physician - CHIP Ponce APRN, [place] X Primary Care Physician - GUSTAVO SALAS DO Referring Physician - GUSTAVO SALAS DO This Is Your Medications List [facility] Prescription (Metoprolol Succinate Er 24hr 50 Mg [...] 3 mL UD) 180 EA, 0 Refill(s), INHALECONTENTS OF 1 VIAL (3 ML) VIA NEBULIZER [...] Atherosclerosis of aorta Atherosclerotic heart disease of [place] coronary artery without angina pectoris Carotid stenosis [...] you for choosing us for your care. [facility]. Bing, MD, Cancer CenterPatient Educationon 01-30-2024 Patient EducationObstetrics and Gynecology Urinary Tract Infection, Adult A urinary tract [...] this condition includes: ? Antibiotic medicine. ? Wdwd-iik-tctxhwy medicines to treat discomfort. ? Drinking enough [...] these instructions at home: Medicines ? 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 Salas for incontinence. Micro UA done 12/30/23. She states she thought she seen Dr. Croft before (nothing on [employer]) she just knows it was a long time ago Started at [facility] September with UTI and was transferred to [facility] in October is when they [...] with voice recognition artificial intelligence software, specifically [employer], [employer] and or [employer]. Substitutions may have occurred due to the [...] our office. Rx sent to [facility] in [place]. - Start antibiotics today - Send urine for culture Ordered: cephalexin, 500 mg = 1 cap(s), Oral, q12hr, X 7 day(s), # 14 cap(s), Refills(s) 0, Pharmacy: [id number], 170, cm, 01/30/24 13:39:00 EDT, Height/Length [...] reevaluate after procedure Ordered: Urine Culture Orders: [id number] Measure Post Void residual urine and/or bladder capacity by US- non-imaging Urnls Dip Stick Auto w/o Microscopy POC 03468 Urnls Dip Stick Auto w/o Microscopy POC 77146 Follow-up With When Contact Information CHIP Ponce APRN, Renae Delaney, FAM, URL Additional Instruction (more content not included)...[facility] Arthur G.H. Bing, MD, Cancer CenterComment on above:Result Comment: Electronically Signed By: CHIP Ponce APRN, [place] X\.br\Date and Time Signed: 01/30/24 14:52 EDTTransthoracic echo (TTE) completeon 01-29-[address], [address] [facility], [place] [address] TRANSTHORACIC ECHOCARDIOGRAM REPORT Patient Name: GERA PERDUE Reading Physician: [id number] Seth Barnes MD, [facility] Study Date: 01/27/2024 Ordering Provider: [id number] JENNA ENGLE MRN/PID: [id number] Fellow: Nurse: Date of /Age: 1 1945 / 78 years Manager Of Software: Inessa Roche RDCS, RVT Gender: F Additional Staff: Height: 162.56 cm Admit Date: Weight: 87.09 kg Admission Status: BSA / BMI: 1.92 m2 / 32.96 kg/m2 Department Location: [facility] Blood Pressure: 126 /78 mmHg Study Type: TRANSTHORACIC ECHO (TTE) COMPLETE Diagnosis/ICD: Shortness of breath-R06.02 Indication: History of PEA-09/2023, CAD, PTCA-04/2019, COPD, HTN, Hyperlipidemia, Tobacco Abuse, Hypoxemia, Sid, CKD-Stage III, Anemia CPT Codes: Echo Complete w Full Doppler-69771 Study Detail: The following Echo studies were [...] visualized. There is no indication of pulmonic valveregurgitation. Pericardium: There is no pericardial effusion noted. [...] 1.1 m/s (0.6-0.9m/s) PV Max P.5 mmHg [id number] Seth Barnes MD, [facility] Electronically signed on 01/29/2024 at 7:26:59 PM Final UHRadiology, Radiologist, MD - 01/29/[address], [address] [address] TRANSTHORACIC ECHOCARDIOGRAM REPORT Patient Name: GERA Durham IRON Hernandez Physician: [id number] Seth Barnes MD, [facility] Study Date: 01/27/2024 Ordering Provider: [id number] JENNA ENGLE MRN/PID: [id number] Fellow: Nurse: Date of /Age: 1 1945 / 78 years Manager Of Software: Inessa Roche RDCS, T Gender: F Additional Staff: Height: 162.56 cm Admit Date: Weight: 87.09 kg Admission Status: BSA / BMI: 1.92 m2 / 32.96 kg/m2 Department Location: [facility] Blood Pressure: 126 /78 mmHg Study Type: TRANSTHORACIC ECHO (TTE) COMPLETE Diagnosis/ICD: Shortness of breath-R06.02 Indication: History of PEA-09/2023, CAD, PTCA-04/2019, COPD, HTN, Hyperlipidemia, Tobacco Abuse, Hypoxemia, Sid, CKD-Stage III, Anemia CPT Codes: Echo Complete w Full Doppler-21703 Study Detail: The following Echo studies were [...] visualized. There is no indication of pulmonic valveregurgitation. Pericardium: There is no pericardial effusion noted. [...] 1.1 m/s (0.6-0.9m/s) PV Max P.5 mmHg [id number] Seth Barnes MD, [facility] Electronically signed on 01/29/2024 at 7:26:59 PM Final NOMS HealthcareTransthoracic echo (TTE) completeOrdered By: Radiologist Radiology on 52-03-2102UN[employer] Work Phone: TRANSTHORACIC ECHO (TTE) COMPLETEon 01-27-2024 TRANSTHORACIC ECHO (TTE) [address], [address] [facility], [place] [address] TRANSTHORACIC ECHOCARDIOGRAM REPORT Patient Name: GERA Durham IRON [place] Physician: [id number] Seth Barnes MD, FAC Study Date: 01/27/2024 Ordering Provider: [id number] JENNA ENGLE MRN/PID: [id number] Fellow: Nurse: Date of /Age: 1 1945 / 78 years Manager Of Software: Inessa Roche RDCS, RVT Gender: F Additional Staff: Height: 162.56 cm Admit Date: Weight: 87.09 kg Admission Status: BSA / BMI: 1.92 m2 / 32.96 kg/m2 Department Location: [facility] Blood Pressure: 126 /78 mmHg Study Type: TRANSTHORACIC ECHO (TTE) COMPLETE Diagnosis/ICD: Shortness of breath-R06.02 Indication: History of PEA-09/2023, CAD, PTCA-04/2019, COPD, HTN, Hyperlipidemia, Tobacco Abuse, Hypoxemia, Sid, CKD-Stage III, Anemia CPT Codes: Echo Complete w Full Doppler-07562 Study Detail: The following Echo studies were [...] visualized. There is no indication of pulmonic valveregurgitation. Pericardium: There is no pericardial effusion noted. [...] 1.1 m/s (0.6-0.9m/s) PV Max P.5 mmHg [id number] Seth Barnes MD, FACC Electronically signed on 01/29/2024 at 7:26:59 PM Final [facility] HospitalTransthoracic echo (TTE) completeon 73-20-0584Foxakhpjx Study observation (narrative)NOMS HealthcareAlanine aminotransferase [Enzymatic activity/volume] in Serum or PlasmaOrdered By: Jenna Engle on 20-56-9237ZJD [Catalytic activity/Vol]19 U/L 7-52Brec[facility]ville [facility] / Crille HospitalAlbumin [Mass/volume] in Serum or Plasma by Bromocresol green (BCG) dye binding methoOrdered By: Jenna Engle on 01-06-2024 Albumin BCG dye [Mass/Vol]3.9 g/dL3.5-5.7FOhioHealth Hardin Memorial Hospital Alkaline phosphatase [Enzymatic activity/volume] in Serum or PlasmaOrdered By: Jenna Engle on 97-81-5565JBP [Catalytic activity/Vol]66 U/P18-400QhoqablsxBrecksville Va / Crille HospitalAspartate aminotransferase [Enzymatic activity/volume] in Serum or PlasmaOrdered By: Jenna Engle on 73-88-8812EEC [Catalytic activity/Vol]22 U/Z08-91IpzarqmauBrecksville Va / Crille HospitalBasophils Auto (Bld) [#/Vol]Ordered By: Jenna Engle on 57-02-4006Xdofwveaz (Bld) [#/Vol]0.1 10*3/uL 0.0-0.2FOhioHealth Hardin Memorial HospitalBasophils/100 WBC Auto (Bld)Ordered By: Jenna Engle on 07-75-1128Dpradqjcv/100 WBC (Bld)0.4 %.B[facility]ville [facility] / Crille HospitalBilirubin.total [Mass/volume] in Serum or PlasmaOrdered By: Jenna Engle on 90-17-1742Rdjhztebd [Mass/Vol]0.3 mg/dL0.3-1.0B[facility] Crille HospitalCalcium [Mass/volume] in Serum or PlasmaOrdered By: Jenna Engle on 93-04-6048Sqmwyxm [Mass/Vol]9.5 mg/dL8.6-10.3FOhioHealth Hardin Memorial HospitalCarbon dioxide, total [Moles/volume] in Serum or PlasmaOrdered By: Jenna Engle on 41-99-6861OT3 [Moles/Vol]31.7 mmol/L21.0-31.0B[facility] Crille HospitalChloride [Moles/volume] in Serum or PlasmaOrdered By: Jenna Engle on 17-06-2455Fdjntomj [Moles/Vol]108 mmol/P02-322IkkpuprmfBrecksville Va / Crille Hospital Creatinine [Mass/volume] in Serum or PlasmaOrdered By: Jenna Engle on 64-42-5292Glalvwwoih [Mass/Vol]1.18 mg/dL0.60-1.20B[facility]ville [facility] / Crille HospitalECG 12 [place] 87-08-8177FrokfhssqiProtestant Deaconess Hospital Work Phone: Normal sinus rhythm at 62 bpm IN interval 170 ms QRS duration 80 ms QTc 401 ms.[facility] Work Phone: [facility] Work Phone: Eosinophils Auto (Bld) [#/Vol]Ordered By: Jenna Engle on 58-52-7154Nuztyhlfhij (Bld) [#/Vol]0.1 10*3/uL0.0-0.45Brecksville Va / Crille HospitalEosinophils/100 WBC Auto (Bld)Ordered By: Jenna Engle on 56-78-2910Xqpnjqkvoia/100 WBC (Bld)0.9 %.[facility] Erythrocyte distribution width Auto (RBC) [Ratio]Ordered By: Jenna Engle on 22-78-1353Wsmsckwqhok distribution width (RBC) [Ratio]20.0 %11.9-15.3FOhioHealth Hardin Memorial HospitalErythrocyte sedimentation rate by Photometric method Ordered By: Jenna Engle on 78-75-6445SHU Photometric method (Bld) [Velocity]34 mm/hr0-29Brecksville [facility] / Crille HospitalGlobulin Calc (S) [Mass/Vol]Ordered By: Jenna Engle on 48-22-5835Hrkbapji (S) [Mass/Vol]3.2 g/dLBrecksville Va / Crille HospitalGlucose [Mass/volume] in Serum or PlasmaOrdered By: Jenna Engle on 32-05-0989Rvrulje [Mass/Vol]85 mg/xG15-715JsjzinkglBrecksville Va / Crille Hospital Comment on above:ADA recommended reference rangeRandom Glucose Reference Range is dependent on time and content of last meal. Glucose of more than 200 mg/dL in a nonstressed, ambulatory subject supports the diagnosisof Diabetes Mellitus. Hematocrit Auto (Bld) [Volume fraction]Ordered By: Jenna Engle on 01-06-2024 Hematocrit (Bld) [Volume fraction]35.7 %34.0-46.4FOhioHealth Hardin Memorial HospitalHemoglobin [Mass/volume] in BloodOrdered By: Jenna Engle on 01-06-2024 Hemoglobin (Bld) [Mass/Vol]11.3 g/dL11.8-15.4FOhioHealth Hardin Memorial Hospital Leukocytes [#/volume] corrected for nucleated erythrocytes in Blood by Automated counOrdered By: Jenna Engle on 19-15-8145OTO corrected for nucl RBC Auto (Bld) [#/Vol]14.2 10*3/uL3.8-11.6FOhioHealth Hardin Memorial HospitalLymphocytes Auto (Bld) [#/Vol]Ordered By: Jenna Engle on 81-81-5837Rfvauzscmbt (Bld) [#/Vol]4.3 10*3/uL1.00-4.8B[facility]ville [facility] / Crille HospitalLymphocytes/100 WBC Auto (Bld) Ordered By: Jenna Engle on 03-16-3764Zuajxulpzmr/100 WBC (Bld)30.2 %.[facility] HospitalH Auto (RBC) [Entitic mass]Ordered By: Jenna Engle on 07-11-7060YEF (RBC) [Entitic mass]24.9 pg24.7-34.3FOhioHealth Hardin Memorial HospitalMCHC Auto (RBC) [Mass/Vol]Ordered By: Jenna Engle on 17-41-9313SAZR (RBC) [Mass/Vol]31.6 g/dL32.0-35.0Brecksville Va / Crille HospitalMCV Auto (RBC) [Entitic vol]Ordered By: Jenna Engle on 02-76-6587SZI (RBC) [Entitic vol]78.7 jD89-362KikhnlnkgBrecksville Va / Crille HospitalMonocytes Auto (Bld) [#/Vol]Ordered By: Jenna Engle on 82-56-4846Pxtvptbmt (Bld) [#/Vol]1.2 10*3/uL0.0-0.8B[facility]ville [facility] Crille HospitalMonocytes/100 WBC Auto (Bld)Ordered By: Jenna Engle on 21-06-6379Qxlessvqk/100 WBC (Bld)8.7 %.[facility] Natriuretic peptide B [Mass/Vol]Ordered By: Jenna Engle on 01-06-2024 Natriuretic peptide B (Bld) [Mass/Vol]358.0 pg/mL5-100B[facility]ville [facility] / Crille HospitalNeutrophils Auto (Bld) [#/Vol]Ordered By: Jenna Engle on 01-06-2024 Neutrophils (Bld) [#/Vol]8.5 10*3/uL1.8-7.7FOhioHealth Hardin Memorial Hospital Neutrophils/100 WBC Auto (Bld)Ordered By: Jenna Engle on 01-06-2024 Neutrophils/100 WBC (Bld)59.8 %.[facility] Crille HospitalNo Panel InformationOrdered By: Jenna Engle on 10-56-5178Ybscygfbv GFR (CKD-EPI)47.277 mL/MinBrecksville Va / Crille HospitalPharmacy Creatinine Clearance (ChemN/A [facility] / Crille HospitalNucleated erythrocytes [Presence] in Blood by Automated countOrdered By: Jenna Engle on 90-36-7340Clcowiyqm RBC Auto Ql (Bld) 0.0 /100{WBC}0-0.5FOhioHealth Hardin Memorial HospitalPlatelet mean volume Auto (Bld) [Entitic vol]Ordered By: Jnena Engle on 53-84-8101Gmsddwtz mean volume (Bld) [Entitic vol]7.2 fL6.3-10.7FOhioHealth Hardin Memorial HospitalPlatelets Auto (Bld) [#/Vol]Ordered By: Jenna Engle on 34-94-3468Dcspbrycz (Bld) [#/Vol]330 10*3/mL143-925PzjgmzineBrecksville Va / Crille HospitalPotassium [Moles/volume] in Serum or PlasmaOrdered By: Jenna Engle on 28-85-0467Soygmyqru [Moles/Vol]4.5 mmol/L 3.5-5.1FOhioHealth Hardin Memorial HospitalProtein [Mass/volume] in Serum or Plasma Ordered By: Jenna Engle on 27-63-6518Ogrfzhe [Mass/Vol]7.1 g/dL6.4-8.9B[facility] / Crille HospitalRBC Auto (Bld) [#/Vol]Ordered By: Jenna Engle on 21-03-7584TKP (Bld) [#/Vol]4.54 10*6/uL3.60-5.00Marymount Hospitalerum or plasma albumin/globulin mass ratioOrdered By: Jenna Engle on 97-66-7172Icsqipq/Globulin [Mass ratio]1.2 {ratio}Marymount Hospitalerum or plasma anion gap determinationOrdered By: Jenna Engle on 52-21-2521Nyngq gap [Moles/Vol]8.8 mmol/L6.0-15.0Marymount Hospitalodium [Moles/volume] in Serum or PlasmaOrdered By: Jenna Engle on 35-94-1788Keywzf [Moles/Vol]144 mmol/Q036-649BgbyevspcBrecksville Va / Crille Hospital Urea nitrogen [Mass/volume] in Serum or PlasmaOrdered By: Jenna Engle on 45-42-8196Hvev nitrogen [Mass/Vol]31 mg/dL7-25[facility] WBC Auto (Bld) [#/Vol]Ordered By: Jenna Engle on 07-90-0844LPT (Bld) [#/Vol] 14.2 10*3/uL3.8-11.6FOhioHealth Hardin Memorial HospitalBASIC METABOLIC PANLon 03-45-2244Ccjqb gap [Moles/Vol]9 mmol/LNormal5-15[facility] Comment on above:Performed By: #### CBC, BMP, [address]-10 #### [facility] ([id number]) [address], [address] [place], [place] [address]Fmdypcy [Mass/Vol]9.1 mg/dLNormal8.5-10.5POhioHealth Grady Memorial HospitalComment on above:Performed By: #### SANTOSH NAIDU, , 2776-10 #### [facility] ([id number]) [address], [address] [place], [place] [address]Huiidqjx [Moles/Vol]102 mmol/VFfmugz47-667FxcZboklv [place] HospitalComment on above:Performed By: #### SANTOSH NAIDU, , 2776-10 #### [facility] ([id number]) [address], [address] [place], [place] [address]KZ5 [Moles/Vol]26 mmol/XBwjuku28-98OogJtubll [facility] Comment on above:Performed By: #### SANTOSH NAIDU, , 2776-10 #### [facility] ([id number]) [address], [address] [place], [place] [address]Cchxpxbjjn [Mass/Vol]1.08 mg/dLHigh0.40-1.00ProKettering Health Behavioral Medical CenterComment on above:Result Comment: METHOD TRACEABLE TO IDMS STANDARD Performed By: #### SANTOSH NAIDU, , 2776-10 #### [facility] ([id number]) [address], [address] [place], [place] [address]MUJ/1.73 sq M.predicted among non-blacks MDRD (S/P/Bld) [Vol rate/Area]53 mL/min/{1.73_m2}Low>59ProKettering Health Behavioral Medical CenterComment on above: Result Comment: Reported eGFR is based on the CKD-EPI 2020 equation that does not use a race coefficient.Performed By: #### SANTOSH NAIDU, , 2776-10 #### [facility] ([id number]) [address], [address] [place], [place] [address]Jdzheqh [Mass/Vol]96 mg/xJWaxpjs33-29XnlTmsllg [facility] Comment on above:Performed By: #### SANTOSH NAIDU, , 2776-10 #### [facility] ([id number]) [address], [address] [place], [place] [address]Boijowtbm [Moles/Vol]4.4 mmol/LNormal3.5-5.0ProMedica [place] HospitalComment on above:Performed By: #### SANTOSH NAIDU, , 2776-10 #### [facility] ([id number]) [address], [address] [place], [place] [address]Ndcbny [Moles/Vol]137 mmol/RFokibg738-377YniMrpwjl [facility] HospitalComment on above:Performed By: #### SANTOSH NAIDU, , 2776-10 #### [facility] ([id number]) [address], [address] [place], [place] [address]Pdvt nitrogen [Mass/Vol]13 mg/dLNormal5-27ProMedica [place] HospitalComment on above:Performed By: #### SANTOSH NAIDU, , 2776-10 #### [facility] ([id number]) [address], [facility] [address] [place], [place] [address]NEQAJUEY BLOOD COUNTon 67-69-2357Engmzocmhhr distribution width (RBC) [Ratio]21.6 %High11.5-15.0ProMedica [place] HospitalComment on above: Performed By: #### SANTOSH NAIDU, , 2776-10 #### [facility] ([id number]) [address], [address] [place], [place] [address]Fylmrxisyv (Bld) [Volume fraction]25.8 %Ucm93-35IkvNymjbz [place] HospitalComment on above:Performed By: #### SANTOSH NAIDU, , 2776-10 #### [facility] ([id number]) [address], [address] [place], [place] [address]Cnposzfppb (Bld) [Mass/Vol]8.5 g/dLLow11.7-15.5PLancaster Municipal Hospital HospitalComment on above:Performed By: #### CBC, BMP, , 2776-10 #### [facility] ([id number]) [address], [address] [place], [place] [address]UZM (RBC) [Entitic mass]26.1 hxWcj80-15KzuCuvgyqHocking Valley Community Hospital Comment on above:Performed By: #### ELYSIA, BMP, , 2776-10 #### [facility] ([id number]) [address], [address] [place], [place] [address]TOHE (RBC) [Mass/Vol]32.9 g/tEGnykpb90-51WtxSuhfjt [place] HospitalComment on above:Performed By: #### CBC, BMP, , 2776-10 #### [facility] ([id number]) [address], [address] [place], [place] [address]JRL (RBC) [Entitic vol]79 xQSoz15-834UgmGtvsjzHocking Valley Community Hospital Comment on above:Performed By: #### CBC, BMP, , 2776-10 #### [facility] ([id number]) [address], [address] [place], [place] [address]Nuifjomd mean volume (Bld) [Entitic vol]6.7 fLLow7-12POhioHealth Grady Memorial HospitalComment on above:Performed By: #### CBC, BMP, , 2776-10 #### [facility] ([id number]) [address], [address] [place], [place] [address]Evgqtdikp (Bld) [#/Vol]551 10*3/mYNtvz548-312GkxTqwcpk [place] HospitalComment on above:Performed By: #### SANTOSH NAIDU, , 2776-10 #### [facility] ([id number]) [address], [address] [place], [place] [address]XVE COUNT3.26 X10E12/LLow3.80-5.20ProAk[facility] Comment on above:Performed By: #### SANTOSH NAIDU, , 2776-10 #### [facility] ([id number]) [address], [address] [place], [place] [address]XPY (Bld) [#/Vol]10.1 10*3/uLNormal4.0-11.0ProSumma Health Akron Campusca Hackettstown HospitalComment on above:Performed By: #### SANTOSH NAIDU, , 2776-10 #### [facility] [facility] ([id number]) [address] [place], [place] [address]Npfjsuj.ionized (Bld) [Mass/Vol]on 66-97-7530OTDXSGC CALCIUM4.9 mg/dLNormal4.5-5.3[facility] HospitalComment on above:Performed By: #### SANTOSH NAIDU, , 2776-10 #### [facility] ([id number]) [address] [place], [place] [address]RYOBOKOMTci 44-26-2404Vrdabymqz [Mass/Vol]1.7 mg/dLLow1.8-2.6 ProMKettering Health Preble HospitalComment on above:Performed By: #### SANTOSH NAIDU, , 2776-10 #### [facility] ([id number]) [address], [address] [place], [place] [address]QHZRYUEUVVei 70-76-3687Ayycrsppa [Mass/Vol]5.1 mg/dLHigh2.4-4.9 [facility] HospitalComment on above:Performed By: #### ELYSIA, SANTOSH, , 2776-10 #### [facility] ([id number]) [address], [address] [place], [place] [address]Addgelzsgf factor Nephelometry Qn (S)on 32-25-9105DFMPHAPHFZ FACTOR<10Normal<20[facility] HospitalComment on above:Performed By: #### ELYSIA, SANTOSH, , 2776-10 #### [facility] ([id number]) [address], [address] [place], [place] [address]ZJCWF METABOLIC PANLon 91-50-1059Ftzls gap [Moles/Vol]10 mmol/L Normal5-15[facility] HospitalComment on above:Performed By: #### ELYSIA, SANTOSH, , 2776-10 #### [facility] ([id number]) [address], [address] [place], [place] [address]Qcuylto [Mass/Vol]8.8 mg/dLNormal8.5-10.5[facility] HospitalComment on above:Performed By: #### ELYSIA, SANTOSH, , 2776-10 #### [facility] ([id number]) [address], [address] [place], [place] [address]Dkgnonzx [Moles/Vol]104 mmol/JHtgxnd31-872YcoItquyb [place] HospitalComment on above:Performed By: #### ELYSIA, BMP, , 2776-10 #### [facility] ([id number]) [address], [address] [place], [place] [address]JF6 [Moles/Vol]25 mmol/FVdglyy51-35JltTxtggc [facility] Comment on above:Performed By: #### ELYSIA, BMP, , 2776-10 #### [facility] ([id number]) [address], [address] [place], [place] [address]Awznyukfbx [Mass/Vol]1.02 mg/dLHigh0.40-1.00[facility] HospitalComment on above:Result Comment: METHOD TRACEABLE TO IDMS STANDARD Performed By: #### SANTOSH NAIDU, , 2776-10 #### [facility] ([id number]) [address], [address] [place], [place] [address]YDG/1.73 sq M.predicted among non-blacks MDRD (S/P/Bld) [Vol rate/Area]57 mL/min/{1.73_m2}Low>59[facility] HospitalComment on above: Result Comment: Reported eGFR is based on the CKD-EPI 2020 equation that does not use a race coefficient.Performed By: #### SANTOSH NAIDU, , 2776-10 #### [facility] ([id number]) [address], [address] [place], [place] [address]Szyrmkj [Mass/Vol]86 mg/nXPxpint21-92NbpFymykf [facility] Comment on above:Performed By: #### SANTOSH NAIDU, , 2776-10 #### [facility] ([id number]) [address] [address] [place], [place] [address]Cjbtnxmal [Moles/Vol]4.6 mmol/LNormal3.5-5.0[facility] HospitalComment on above:Performed By: #### SANTOSH NAIDU, 2776-10 #### [facility] ([id number]) [address], [address] [place], [place] [address]Ffiuyy [Moles/Vol]139 mmol/KMdjzxs289-274XnfTsqtua [place] HospitalComment on above:Performed By: #### SANTOSH NAIUD, , 2776-10 #### [facility] ([id number]) [address], [address] [place], [place] [address]Arme nitrogen [Mass/Vol]13 mg/dLNormal5-27[facility] HospitalComment on above:Performed By: #### SANTOSH NAIDU, , 2776-10 #### [facility] ([id number]) [address], [address] [place], [place] [address]NDVYZIAN BLOOD COUNTon 60-39-1109Dcrodcgrbvw distribution width (RBC) [Ratio]22.2 %High11.5-15.0[facility] HospitalComment on above: Performed By: #### SANTOSH NAIDU, , 2776-10 #### [facility] ([id number]) [address], [address] [place], [place] [address]Lvuxhaxqgt (Bld) [Volume fraction]25.7 %Rou54-03IcjSregks [place] HospitalComment on above:Performed By: #### SANTOSH NAIDU, , 2776-10 #### [facility] ([id number]) [address], [address] [place], [place] [address]Ximzawpxdt (Bld) [Mass/Vol]8.2 g/dLLow11.7-15.5[facility] HospitalComment on above:Performed By: #### SANTOSH NAIDU, , 2776-10 #### [facility] ([id number]) [address], [address] [place], [place] [address]PSA (RBC) [Entitic mass]26.2 oeOch42-68NrlKxchkp [facility] Comment on above:Performed By: #### SANTOSH NAIDU, , 2776-10 #### [facility] ([id number]) [address], [address] [place], [place] [address]BFBC (RBC) [Mass/Vol]32.1 g/mRVdhtry65-06BevLtwfrt [facility] HospitalComment on above:Performed By: #### ELYSIA, SANTOSH, , 2776-10 #### [facility] ([id number]) [address], [address] [place], [place] [address]UBL (RBC) [Entitic vol]82 xMCeegka18-139EkuPfmylr [facility] HospitalComment on above:Performed By: #### ELYSIA, BMP, , 2776-10 #### [facility] ([id number]) [address], [address] [place], [place] [address]Rveenyox mean volume (Bld) [Entitic vol]6.7 fLLow7-12[facility] HospitalComment on above:Performed By: #### CBC, BMP, , 2776-10 #### [facility] ([id number]) [address], [address] [place], [place] [address]Vnzgifmuu (Bld) [#/Vol]533 10*3/aUXgih774-763TieDfuyxx [facility] HospitalComment on above:Performed By: #### ELYSIA, BMP, , 2776-10 #### [facility] ([id number]) [address], [address] [place], [place] [address]MLH COUNT3.14 X10E12/LLow3.80-5.20[facility] Hospital Comment on above:Performed By: #### ELYSIA, BMP, , 2776-10 #### [facility] ([id number]) [address], [address] [place], [place] [address]UGJ (Bld) [#/Vol]9.7 10*3/uLNormal4.0-11.0ProSum[facility] Campusca [place] HospitalComment on above:Performed By: #### CBC, BMP, , 2776-10 #### [facility] ([id number]) [address], [address] [place], [place] [address]Ruhypml.ionized (Bld) [Mass/Vol]on 89-40-7061XUVCPNX CALCIUM4.9 mg/dLNormal4.5-5.3[facility] HospitalComment on above:Performed By: #### CBC, BMP, , 2776-10 #### [facility] ([id number]) [address], [address] [place], [place] [address]Pewkprr Glucometer (BldC) [Mass/Vol]on 29-45-9462Ahfnmrb [Mass/Vol]97 mg/mRDzeddf94-09XclXrxosv [facility] HospitalMAGNESIUMon 10-22-2023 Magnesium [Mass/Vol]2.1 mg/dLNormal1.8-2.6[facility] HospitalComment on above:Performed By: #### SANTOSH NAIDU, , 2776-10 #### [facility] ([id number]) [address], [address] [place], [place] [address]YAYBMBPNEZcq 11-41-5583Iigpxkovs [Mass/Vol]4.9 mg/dLNormal 2.4-4.9Pro[facility] Campusca [place] HospitalComment on above:Performed By: #### SANTOSH NAIDU, , 2776-10 #### [facility] ([id number]) [address], [address] [place], [place] [address]SYHPF METABOLIC PANLon 93-18-8205Yagfo gap [Moles/Vol]7 mmol/L Normal5-15[facility] HospitalComment on above:Performed By: #### SANTOSH NAIDU, , 2776-10 ####[facility] ([id number])[address], [address], [place] [address]Unqpkpw [Mass/Vol]9.0 mg/dLNormal8.5-10.5[facility] HospitalComment on above:Performed By: #### SANTOSH NAIDU, , 2776-10 ####[facility] ([id number])[address], [address], [place] [address]Nwyhrksl [Moles/Vol]104 mmol/VZoluiz05-538XfqAaatxu [facility] HospitalComment on above:Performed By: #### SANTOSH NAIDU, , 2776-10 ####[facility] ([id number])[address] [address], [place] [address]RH1 [Moles/Vol] 26 mmol/UQinixp81-20PhfHdxxed [facility] HospitalComment on above:Performed By: #### SANTOSH NAIDU, , 2776-10 ####[facility] ([id number])[address] [address], [place] [address]Rtybmgibay [Mass/Vol]1.06 mg/dLHigh0.40-1.00 [facility] HospitalComment on above:Result Comment: METHOD TRACEABLE TO IDMS STANDARDPerformed By: #### SANTOSH NAIDU, , 2776-10 ####[facility] ([id number])[address] [address], [place] [address]GBU/1.73 sq M.predicted among non-blacks MDRD (S/P/Bld) [Vol rate/Area]54 mL/min/{1.73_m2} Low>59[facility] HospitalComment on above:Result Comment: Reported eGFR is based on the CKD-EPI 2020 equation that does not use a race coefficient.Performed By: #### SANTOSH NAIDU, , 2776-10 ####[facility] ([id number])[address] [address], [place] [address]Wbxydwj [Mass/Vol]88 mg/sDSffegn26-22MpmBlmkqw [place] HospitalComment on above:Performed By: #### SANTOSH NAIDU, , 2776-10 ####[facility] ([id number])[address] [address], [place] [address]Xsshilxpr [Moles/Vol] 4.5 mmol/LNormal3.5-5.0[facility] HospitalComment on above:Performed By: #### SANTOSH NAIDU, , 2776-10 ####[facility] ([id number])[address], [address] [place] [address]Yfhrra [Moles/Vol]137 mmol/HRozbmc754-413 ProMK[facility] HospitalComment on above:Performed By: #### CBC, SANTOSH, , 2776-10 ####[facility] ([id number])[address], [address] [place] [address]Ozty nitrogen [Mass/Vol]12 mg/dLNormal5-27[facility] HospitalComment on above:Performed By: #### CBC, SANTOSH, , 2776-10 ####[facility] ([id number])[address], [address] [place] [address] COMPLETE BLOOD COUNTon 03-55-0221Oafjvafguqu distribution width (RBC) [Ratio] 22.0 %High11.5-15.0[facility] HospitalComment on above:Performed By: #### ELYSIA, SANTOSH, , 2776-10 ####[facility] ([id number])[address] [address] [place] [address]Jfsynqxouc (Bld) [Volume fraction]26.3 %Low 35-47[facility] HospitalComment on above:Performed By: #### ELYSIA, SANTOSH, , 2776-10 ####[facility] ([id number])[address] [address] [place] [address]Qgbsumjlha (Bld) [Mass/Vol]8.5 g/dLLow11.7-15.5 ProMK[facility] HospitalComment on above:Performed By: #### CBC, BMP, , 2776-10 ####[facility] ([id number])[address], [address] [place] [address]XBL (RBC) [Entitic mass]26.2 orZhr65-72RseQzqyuz [place] HospitalComment on above:Performed By: #### CBC, BMP, , 2776-10 ####[facility] ([id number])[address], [address] [place] [address]HPGS (RBC) [Mass/Vol]32.4 g/fDXddwlb46-16HprEwwine [facility] HospitalComment on above: Performed By: #### ELYSIA, BMP, , 2776-10 ####[facility] ([id number])[address], [address] [place] [address]UGK (RBC) [Entitic vol]81 nSLehqxx70-675UejYxueeu [facility] HospitalComment on above:Performed By: #### ELYSIA, BMP, , 2776-10 ####[facility] ([id number])[address], [address] [place] [address]Sqvesjfh mean volume (Bld) [Entitic vol]6.8 fLLow 7-12[facility] HospitalComment on above:Performed By: #### ELYSIA, BMP, , 2776-10 ####[facility] ([id number])[address], [address] [place] [address]Mdxlywswl (Bld) [#/Vol]611 10*3/wKIbia630-038MgpKqkhsk [facility] HospitalComment on above:Performed By: #### CBC, BMP, , 2776-10 ####[facility] ([id number])[address], [address] [place] [address]PNM COUNT3.25 X10E12/LLow3.80-5.20[facility] HospitalComment on above:Performed By: #### CBC, BMP, , 2776-10 ####[facility] ([id number])[address], [address] [place] [address]BRE (Bld) [#/Vol]10.0 10*3/uLNormal4.0-11.0Pro[facility]ca [place] HospitalComment on above:Performed By: #### CBC, BMP, [address]-6, 2777-1 ####[facility] ([id number])[address], [address], [place] [address]XDD [Mass/Vol]on 3C REACTIVE PROTEIN6.5 mg/dLHigh0.000-0.744[facility] HospitalComment on above: Performed By: #### 95664-9 #### [facility] ([id number]) [address], [address] [place], [place] [address]Shjbyra.ionized (Bld) [Mass/Vol]on 38-68-9975LZLDLOG CALCIUM4.9 mg/dLNormal4.5-5.3PL[facility]aster [facility] HospitalComment on above:Performed By: #### 78874-9 #### [facility] ([id number]) [address], [address] [place], [place] [address]QAV Photometric method (Bld) [Velocity]on 09-52-5392FEW, ERYTHROCYTE SEDIMENTATION RATE74 mm/hHigh0-30[facility] HospitalComment on above:Performed By: #### 22911-2 #### [facility] ([id number]) [address], [address] [place], [place] [address]Yqkkgsl Glucometer (BldC) [Mass/Vol]on 29-71-0081Nkvjaea [Mass/Vol]124 mg/tBQned89-04YocXwlotz [facility] HospitalGlucose [Mass/Vol]135 mg/dL Yrye83-13OloJouazm [facility] HospitalGlucose [Mass/Vol]126 mg/mFMixh20-54YesVjpdep [facility] HospitalGlucose [Mass/Vol]91 mg/nOVfqbax93-06BzzLyjsfz [facility] MAGNESIUMon 37-27-4886Rjlxekrtw [Mass/Vol]2.6 mg/dLNormal1.8-2.6ProSum[facility] Campusca [place] HospitalComment on above:Performed By: #### 45388-8 #### [facility] ([id number]) [address], [address] [place], [place] [address]Opfntmsdf [Mass/Vol]1.9 mg/dLNormal1.8-2.6Pro[facility] HospitalComment on above:Performed By: #### SANTOSH NAIDU, , 2777-1 ####[facility] ([id number])[address], [address], [place] [address] PHOSPHORUSon 67-28-1021Safciqpsj [Mass/Vol]4.3 mg/dLNormal2.4-4.9[facility] HospitalComment on above:Performed By: #### 61629-0 #### [facility] ([id number]) [address], [address] [place], [place] [address]ZS WRIST LT MIN 3 VWSon 60-97-7510LM WRIST LT MIN 3 VWSXR WRIST LT MIN 3 VWS XR WRIST LT MIN 3 VWS 10/21/2023 10:20 AM INDICATION: severe pain left wrist COMPARISON: None TECHNIQUE: 3 views of the left wrist were obtained Impression: 1. No acute fracture identified. 2. Degenerative changes of the distal radioulnar joint. Ulnar styloid erosion. Correlate for evidence of rheumatoid arthritis. Finalized by Sam Morin MD on 10/21/2023 10:28 AMNormalProMedica [facility]stown HospitalBASIC METABOLIC PANLon 00-68-8497Nwzas gap [Moles/Vol]7 mmol/L Normal5-15[facility] HospitalComment on above:Performed By: #### SANTOSH NAIDU, , 277-1 ####[facility] ([id number])[address], [address], [place] [address]Ppbcwam [Mass/Vol]8.6 mg/dLNormal8.5-10.5[facility] HospitalComment on above:Performed By: #### SANTOSH NAIDU, , 2776-10 ####[facility] ([id number])[address], [address] [place] [address]Lghjkmap [Moles/Vol]107 mmol/QLpweak13-399SzxOruzhp [facility] HospitalComment on above:Performed By: #### SANTOSH NAIDU, , 2776-10 ####[facility] ([id number])[address], [address], [place] [address]HH5 [Moles/Vol] 25 mmol/QHecezt85-26GctLeetaq [facility] HospitalComment on above:Performed By: #### SANTOSH NAIDU, , 2776-10 ####[facility] ([id number])[address], [address], [place] [address]Gglevwejcx [Mass/Vol]1.16 mg/dLHigh0.40-1.00 [facility] HospitalComment on above:Result Comment: METHOD TRACEABLE TO IDNH STANDARDPerformed By: #### SANTOSH NAIDU, , 2776-10 ####[facility] ([id number])[address], [address], [place] [address]ZQH/1.73 sq M.predicted among non-blacks MDRD (S/P/Bld) [Vol rate/Area]49 mL/min/{1.73_m2} Low>59[facility] HospitalComment on above:Result Comment: Reported eGFR is based on the CKD-EPI 2020 equation that does not use a race coefficient.Performed By: #### SANTOSH NIADU, , 2776-10 ####[facility] ([id number])[address] [address], [place] [address]Vbxiimr [Mass/Vol]80 mg/cYEcnasg63-19AjnEzlsga [facility] HospitalComment on above:Performed By: #### SANTOSH NAIDU, , 2776-10 ####[facility] ([id number])[address], [place] [address]Smqppyqfn [Moles/Vol] 4.6 mmol/LNormal3.5-5.0[facility] HospitalComment on above:Performed By: #### SANTOSH NAIDU, , 2776-10 ####[facility] ([id number])[address], [place] [address]Vqjycx [Moles/Vol]139 mmol/RAstwcg945-331 ProMK[facility]tering [facility]ble HospitalComment on above:Performed By: #### SANTOSH NAIDU, , 2776-10 ####[facility] ([id number])[address], [address], [place] [address]Duvf nitrogen [Mass/Vol]12 mg/dLNormal5-27[facility] HospitalComment on above:Performed By: #### SANTOSH NAIDU, , 2776-10 ####[facility] ([id number])[address] [address] [place] [address] COMPLETE BLOOD COUNTon 16-09-1775Samcfhqhowf distribution width (RBC) [Ratio] 22.5 %High11.5-15.0[facility] HospitalComment on above:Performed By: #### SANTOSH NAIDU, , 2776-10 ####[facility] ([id number])[address] [address] [place] [address]Ckyvfnjpbs (Bld) [Volume fraction]24.8 %Low 35-47[facility] HospitalComment on above:Performed By: #### SANTOSH NAIDU, , 2776-10 ####[facility] ([id number])[address] [address], [place] [address]Jhqolbaltt (Bld) [Mass/Vol]8.1 g/dLLow11.7-15.5 [facility] HospitalComment on above:Performed By: #### CBC, SANTOSH, , 2776-10 ####[facility] ([id number])[address], [address] [place] [address]PSC (RBC) [Entitic mass]26.2 igUls32-42MqjBzjqtz [facility] HospitalComment on above:Performed By: #### ELYISA, SANTOSH, , 2776-10 ####[facility] ([id number])[address], [address] [place] [address]SHRM (RBC) [Mass/Vol]32.4 g/rACdlvxj60-29AqvPlxjys [facility] HospitalComment on above: Performed By: #### ELYSIA, SANTOSH, , 2776-10 ####[facility] ([id number])[address], [address] [place] [address]GUE (RBC) [Entitic vol]81 aGFjjlnn37-740EnmCxkudj [facility] HospitalComment on above:Performed By: #### ELYSIA, SANTOSH, , 2776-10 ####[facility] ([id number])[address] [place] [address]Byaszsxq mean volume (Bld) [Entitic vol]6.7 fLLow 7-12[facility] HospitalComment on above:Performed By: #### ELYSIA, SANTOSH, , 2776-10 ####[facility] ([id number])[address], [address] [place] [address] 90930Bfwfciwik (Bld) [#/Vol]554 10*3/uKGemo942-014KolVepuuf Cavazos HospitalComment on above:Performed By: #### ELYSIA, BMP, , 2776-10 ####[facility] ([id number])[address], [address] [place] [address] 92981CYP COUNT3.08 X10E12/LLow3.80-5.20[facility] Cavazos HospitalComment on above:Performed By: #### SANTOSH NAIDU, , 2776-10 ####[facility] ([id number])[address], [address] [place] [address] 83755DTG (Bld) [#/Vol]9.3 10*3/uLNormal4.0-11.0[facility] Cavazos HospitalComment on above:Performed By: #### SANTOSH NAIDU, , 2776-10 ####[facility] ([id number])[address], [address] [place] [address] 83624Cllruxa Glucometer (BldC) [Mass/Vol]on 23-81-0007Vgkqvwj [Mass/Vol]108 mg/wTNrxk02-01UvhHadlen Cavazos HospitalGlucose [Mass/Vol]115 mg/kUVlgw04-27IspEbnezf Cav[facility]os HospitalGlucose [Mass/Vol]140 mg/dL Ewja99-09CsfShgrhk [facility] HospitalGlucose [Mass/Vol]94 mg/iAIgxbwm29-58LfaYuofag Cavazos HospitalMAGNESIUMon 00-37-4267Oamhqpyos [Mass/Vol]1.7 mg/dLLow1.8-2.6 [facility]azos HospitalComment on above:Performed By: #### SANTOSH NAIDU, , 2776-10 ####[facility] ([id number])[address], [address] [place] [address] 48277CQMEYLEWOWeo 00-01-3717Bmgqeapxn [Mass/Vol]4.2 mg/dLNormal 2.4-4.9[facility] Cavazos HospitalComment on above:Performed By: #### SANTOSH NAIDU, , 2776-10 ####[facility] ([id number])[address], [address] [place] [address] 21052DZJKG METABOLIC PANLon 17-83-6651Wvbld gap [Moles/Vol]8 mmol/LNormal5-15[facility] Cavazos HospitalComment on above:Performed By: #### SANTOSH NAIDU, , 2776-10 ####[facility] ([id number])[address], [address] [facility] [address]Elppdmn [Mass/Vol]8.3 mg/dLLow8.5-10.5 [facility] [place] HospitalComment on above:Performed By: #### SANOTSH NAIDU, , 2776-10 ####[facility] ([id number])[address], [address], [place] [address]Wotuslgs [Moles/Vol]107 mmol/UYvlxxw27-357MmaDvrtmy [place] HospitalComment on above:Performed By: #### SANTOSH NAIDU, , 2776-10 ####[facility] ([id number])[address], [address], [place] [address]IZ3 [Moles/Vol]24 mmol/QNcrzpy33-85XtgJkzjth [place] HospitalComment on above: Performed By: #### SANTOSH NAIDU, , 2776-10 ####[facility] ([id number])[address] [address], [place] [address]Xhwfxabmnd [Mass/Vol]1.05 mg/dLHigh0.40-1.00ProSumma Health [facility] Campusca [place] HospitalComment on above:Result Comment: METHOD TRACEABLE TO IDNH STANDARDPerformed By: #### SANTOSH NAIDU, , 2776-10 ####[facility] ([id number])[address] [address], [place] [address]WHZ/1.73 sq M.predicted among non-blacks MDRD (S/P/Bld) [Vol rate/Area]55 mL/min/{1.73_m2}Low>59ProMedica Cavazos HospitalComment on above:Result Comment: Reported eGFR is based on the CKD-EPI 2020 equation that does not use a race coefficient.Performed By: #### SANTOSH NAIDU, , 2776-10 ####[facility] ([id number])[address], [address] [facility] [address]Nqbfbmu [Mass/Vol]82 mg/dTYqlook26-77TdjTiaotf Cavazos HospitalComment on above:Performed By: #### ELYSIA, SANTOSH, , 2776-10 ####[facility] ([id number])[address], [address], [place] [address]Iiwojtenn [Moles/Vol] 4.3 mmol/LNormal3.5-5.0[facility] HospitalComment on above:Performed By: #### SANTOSH NAIDU, , 2776-10 ####[facility] ([id number])[address], [address], [place] [address]Zrtlnx [Moles/Vol]139 mmol/JIeyyqu733-731 [facility] HospitalComment on above:Performed By: #### SANTOSH NAIDU, , 2776-10 ####[facility] ([id number])[address] [address] [facility] [address]Vfks nitrogen [Mass/Vol]10 mg/dLNormal5-27[facility] HospitalComment on above:Performed By: #### SANTOSH NAIDU, , 2776-10 ####[facility] ([id number])[address], [address], [place] [address] COMPLETE BLOOD COUNTon 41-26-4697Wbuqgelvdkw distribution width (RBC) [Ratio] 22.7 %High11.5-15.0[facility] HospitalComment on above:Performed By: #### ELYSIA, SANTOSH, , 2776-10 ####[facility] ([id number])[address] [address] [facility] [address]Xgjdcserzs (Bld) [Volume fraction]24.4 %Low 35-47[facility] HospitalComment on above:Performed By: #### CBC, BMP, , 2776-10 ####[facility] ([id number])[address], [address], [place] [address]Vwafrknteo (Bld) [Mass/Vol]7.8 g/dLLow11.7-15.5 [facility] HospitalComment on above:Performed By: #### CBC, BMP, , 2776-10 ####[facility] ([id number])[address], [address], [place] [address]NQI (RBC) [Entitic mass]25.9 yrYnt50-86KtrZffyap [facility] HospitalComment on above:Performed By: #### ELYSIA, BMP, , 2776-10 ####[facility] ([id number])[address], [address], [place] [address]EQSF (RBC) [Mass/Vol]31.8 g/eEMmw49-35YedHjggqk [facility] HospitalComment on above: Performed By: #### ELYSIA, BMP, , 2776-10 ####[facility] ([id number])[address], [address], [place] [address]MMP (RBC) [Entitic vol]82 kUJjiabs21-511NegBdbbwh [facility] HospitalComment on above:Performed By: #### CBC, BMP, , 2776-10 ####[facility] ([id number])[address], [address], [place] [address]Qvccgdxz mean volume (Bld) [Entitic vol]6.6 fLLow 7-12[facility] HospitalComment on above:Performed By: #### CBC, BMP, , 2776-10 ####[facility] ([id number])[address], [address] [place] [address]Supnlmawt (Bld) [#/Vol]533 10*3/sWLhoo427-323KlfAllpzv [facility] HospitalComment on above:Performed By: #### SANTOSH NAIDU, , 2776-10 ####[facility] ([id number])[address], [address] [place] [address]QCE COUNT2.99 X10E12/LLow3.80-5.20[facility] HospitalComment on above:Performed By: #### SANTOSH NAIDU, , 2776-10 ####[facility] ([id number])[address], [address] [place] [address]KQW (Bld) [#/Vol]9.9 10*3/uLNormal4.0-11.0ProSum[facility] Campusca [facility] HospitalComment on above:Performed By: #### SANTOSH NAIDU, , 2776-10 ####[facility] ([id number])[address], [address] [place] [address]Talsogj.ionized (Bld) [Mass/Vol]on 86-76-7041HXWCVFA CALCIUM4.9 mg/dLNormal4.5-5.3[facility] HospitalComment on above:Performed By: #### 50427-3 ####[facility] ([id number])[address], [address] [place] [address]Jseyazh Glucometer (BldC) [Mass/Vol]on 63-64-4889Qxpgvaz [Mass/Vol]102 mg/oBDrqn01-74CnpNdezfp [facility] HospitalGlucose [Mass/Vol]117 mg/dGAkne27-38MofSvlvqa [facility] HospitalGlucose [Mass/Vol]103 mg/bYTcak29-62KdzQdcwdc [facility] HospitalMAGNESIUMon 10-19-2023 Magnesium [Mass/Vol]2.0 mg/dLNormal1.8-2.6[facility] HospitalComment on above:Performed By: #### ELYSIA SANTOSH, , 2776-10 ####[facility] ([id number])[address], [address], [place] [address]LSTMWBPXAIgf 10-19-2023 Phosphate [Mass/Vol]4.3 mg/dLNormal2.4-4.9[facility] HospitalComment on above:Performed By: #### ELYSIA, SANTOSH, , 2776-10 ####[facility] ([id number])[address], [address] [facility] [address]LTQQS METABOLIC PANLon 53-30-1993Rlrds gap [Moles/Vol]10 mmol/LNormal5-15Pro[facility] Comment on above:Performed By: #### SANTOSH NAIDU, , 2776-10, 3083- ####[facility] ([id number])[address], [address], [place] [address] Calcium [Mass/Vol]8.5 mg/dLNormal8.5-10.5[facility] HospitalComment on above:Performed By: #### ELYSIA, SANTOSH, , 2776-10, 3083- ####[facility] ([id number])[address], [address], [place] [address]Tvfjeslz [Moles/Vol]107 mmol/UAynpch77-201GszPiwwnw [facility] HospitalComment on above: Performed By: #### ELYSIA, SANTOSH, , 2776-10, 3083- ####[facility] ([id number])[address], [address], [place] [address]LK7 [Moles/Vol] 23 mmol/ZDphrci38-57MfuSbjwgz [facility] HospitalComment on above:Performed By: #### ELYSIA, SANTOSH, , 2776-10, 3083-1 ####[facility] ([id number])[address], [address], [place] [address]Deulajuxmk [Mass/Vol]1.17 mg/dLHigh0.40-1.00[facility] HospitalComment on above:Result Comment: METHOD TRACEABLE TO IDMS STANDARDPerformed By: #### SANTOSH NAIDU, , 2776-10, 3083-10 ####[facility] ([id number])[address] [address], [place] [address]HTD/1.73 sq M.predicted among non-blacks MDRD (S/P/Bld) [Vol rate/Area]48 mL/min/{1.73_m2}Low>59[facility] HospitalComment on above: Result Comment: Reported eGFR is based on the CKD-EPI 2020 equation that does not use a race coefficient.Performed By: #### SANTOSH NAIDU, , 2776-10, 3083-10 ####[facility] ([id number])[address] [address], [place] [address]Tigfoeu [Mass/Vol]82 mg/rPJtdshv96-71VqrJcarrk [place] HospitalComment on above:Performed By: #### SANTOSH NAIDU, , 2776-10, 3083-10 ####[facility] ([id number])[address] [address]Mvseplklp [Moles/Vol]4.0 mmol/LNormal3.5-5.0[facility] HospitalComment on above: Performed By: #### SANTOSH NAIDU, , 2776-10, 3083-10 ####[facility] ([id number])[address] [address], [place] [address]Ohffyy [Moles/Vol]140 mmol/YGlibbd934-238AxdXholgb [facility] HospitalComment on above: Performed By: #### SANTOSH NAIDU, , 2776-10, 3083-10 ####[facility] ([id number])[address], [address] [facility] [address]Uczo nitrogen [Mass/Vol]11 mg/dLNormal5-27ProSum[facility] Campusca [place] HospitalComment on above:Performed By: #### CBC, BMP, , 2776-10, 3083-10 ####[facility] ([id number])[address], [address], [place] [address]XFTMXADQ BLOOD COUNTon 80-86-1226Ohohifcmbcb distribution width (RBC) [Ratio]21.2 %High11.5-15.0 ProMKettering Health Preble HospitalComment on above:Performed By: #### CBC, BMP, , 2776-10, 3083-10 ####[facility] ([id number])[address], [address], [place] [address]Pyuivtsoke (Bld) [Volume fraction]24.6 %Xus94-27 ProMKettering Health Preble HospitalComment on above:Performed By: #### CBC, BMP, , 2776-10, 3083-10 ####[facility] ([id number])[address] [address], [place] [address]Wphlgsbgjv (Bld) [Mass/Vol]7.9 g/dLLow11.7-15.5 [facility] HospitalComment on above:Performed By: #### CBC, BMP, , 2776-10, 3083-10 ####[facility] ([id number])[address] [address], [place] [address]PMQ (RBC) [Entitic mass]26.2 hrLkv60-93RtnOlfjqs [place] HospitalComment on above:Performed By: #### CBC, BMP, , 2776-10, 3083-10 ####[facility] ([id number])[address] [address], [place] [address]VKHZ (RBC) [Mass/Vol]32.2 g/tWJcrjyb76-07OfhVjvmhl [facility] HospitalComment on above:Performed By: #### CBC, BMP, , 2776-10, 3083-10 ####[facility] ([id number])[address], [address] [place] [address]WLW (RBC) [Entitic vol]81 bOBbpnys35-327LnuYdmobs [facility] HospitalComment on above: Performed By: #### CBC, BMP, , 2776-10, 3083-10 ####[facility] ([id number])[address], [address] [place] [address]Qztvwiqt mean volume (Bld) [Entitic vol]6.5 fLLow7-12[facility] HospitalComment on above:Performed By: #### CBC, BMP, , 2776-10, 3083-10 ####[facility] ([id number])[address], [address] [place] [address]Ydsfytxnw (Bld) [#/Vol]522 10*3/nLHgvt562-164GmaPmntnh [facility] HospitalComment on above:Performed By: #### CBC, BMP, , 2776-10, 3083-10 ####[facility] ([id number])[address], [address] [place] [address]TPN COUNT3.03 X10E12/LLow 3.80-5.20[facility] HospitalComment on above:Performed By: #### CBC, BMP, , 2776-10, 3083-10 ####[facility] ([id number])[address], [address] [place] [address]TZT (Bld) [#/Vol]9.3 10*3/uLNormal4.0-11.0 [facility] HospitalComment on above:Performed By: #### CBC, BMP, , 2777-1, 3084-1 ####[facility] ([id number])[address], [address] [place] [address]Itzhkhl.ionized (Bld) [Mass/Vol]on 76-16-9747QWICJTT CALCIUM4.9 mg/dLNormal4.5-5.3[facility] [place] HospitalComment on above:Performed By: #### 42310-6 ####[facility] ([id number])[address], [address] [place] [address]Mzwogqa Glucometer (BldC) [Mass/Vol]on 10-18-2023 Glucose [Mass/Vol]108 mg/aQRict29-29FgiNveovq [facility] HospitalGlucose [Mass/Vol] 134 mg/mYKnpk42-85SxoKpjeaw [facility] HospitalGlucose [Mass/Vol]127 mg/vQLxzi16-88 [facility] HospitalGlucose [Mass/Vol]102 mg/sTWysh34-97CzjIvyoyi [place] HospitalMAGNESIUMon 50-29-0533Gxulcbakt [Mass/Vol]1.7 mg/dLLow1.8-2.6[facility] [place] HospitalComment on above:Performed By: #### ELYSIA, [facility], [address]-8, 2777-1, 3084-1 ####[facility] ([id number])[address], [address] [place] [address]NO CERVICAL SPINE WO CONTon 02-77-2041QJ CERVICAL SPINE WO CONTMR CERVICAL SPINE WO CONT Noncontrast MRI cervical [...] osteophyte complex. Mild facet arthropathy. No significant spinalstenosis or neural foraminal narrowing. C4-C5: Broad-based posterior [...] moderate spinal stenosis and left neural foraminal narrowingat C5-C6. * Remote C7 compression fracture. Finalized by Roni William MD on 10/18/2023 2:39 AMNKindred Hospital DaytonMR LUMBAR SPINE WO CONTon 30-70-6624EQ LUMBAR SPINE WO CONTMR LUMBAR SPINE WO CONT Noncontrast lumbar spine [...] arthropathy. Mild narrowing of the spinal canal. Moderateright neural foraminal narrowing. L4-L5: Broad-based disc bulge with left foraminal protrusion. Bilateral facet arthropathy. No significant spinal stenosis. Mild to moderate right and moderate left neural foraminal narrowing. L5-S1: Broad-based disc bulge with central protrusion. Mild to moderate facet arthropathy, greater on the left. No significant spinal stenosis. Severe left and mild to moderate right neural foraminalnarrowing. IMPRESSION: * No acute pathologic process. * Degenerative changes resulting in significant narrowing of the L3-L4, L4-L5 and left L5-S1 neuralforamina. Finalized by Roni William MD on 10/18/2023 3:37 [facility] CenterMR THORACIC SP[facility] WO CONTon 66-97-1452IE THORACIC SPINE WO CONTMR THORACIC SPINE WO CONT Noncontrast MRI thoracic [...] by Roni William MD on 10/18/2023 3:25 [facility] CenterPHOSPHORUSon 65-22-9484Kjcytbimb [Mass/Vol]4.1 mg/dLNormal2.4-4.9 [facility] HospitalComment on above:Performed By: #### CBC, BMP, 86781-5, 2777-1, 3084-1 ####[facility] ([id number])[address] [facility] [address], [address] [place] [address]NHIA ACIDon 49-36-0061Vrzvq [Mass/Vol]4.7 mg/dLNormal 2.6-7.2[facility] HospitalComment on above:Performed By: #### CBC, BMP, 40130-8, 2777-1, 3084-1 ####[facility] ([id number])[address], [address], [place] [address]BF WRIST RT 2 VWSon 12-91-5944YN WRIST RT 2 VWSXR WRIST RT 2 VWS CLINICAL INFORMATION: Acute [...] by Prasad Rod MD on 10/18/2023 2:24 PMNormalProSumma Health [facility] Campusca [facility] BASIC METABOLIC PANLon 12-44-6079Otbab gap [Moles/Vol]8 mmol/LNormal5-15 [facility] [place] HospitalComment on above:Performed By: #### 44089-1 #### [facility] ([id number]) [address], [address] [place], [place] [address]Nvioadb [Mass/Vol]8.5 mg/dLNormal8.5-10.5[facility]Med[facility] HospitalComment on above:Performed By: #### 37078-8 #### [facility] ([id number]) [address], [address] [place], [place] [address]Zafdzkto [Moles/Vol]105 mmol/IHlmddc32-766NukOnawhb [place] HospitalComment on above:Performed By: #### 49121-0 #### [facility] ([id number]) [address], [address] [place], [place] [address]YJ4 [Moles/Vol]24 mmol/FKvizut99-23PpoUpjoxcOhioHealth Grady Memorial Hospital Comment on above:Performed By: #### 62695-1 #### [facility] ([id number]) [address], [address] [place], [place] [address]Vlceclrftj [Mass/Vol]1.03 mg/dLHigh0.40-1.00ProSum[facility] Campusca [place] HospitalComment on above:Result Comment: METHOD TRACEABLE TO IDMS STANDARD Performed By: #### 43058-3 #### [facility] ([id number]) [address], [address] [place], [place] [address]HZG/1.73 sq M.predicted among non-blacks MDRD (S/P/Bld) [Vol rate/Area]56 mL/min/{1.73_m2}Low>59[facility] HospitalComment on above: Result Comment: Reported eGFR is based on the CKD-EPI 2020 equation that does not use a race coefficient.Performed By: #### 14573-9 #### [facility] ([id number]) [address], [address] [place], [place] [address]Eaqyppr [Mass/Vol]88 mg/mBWgtpge37-66UqkFhbtze [facility] Comment on above:Performed By: #### 50530-8 #### [facility] ([id number]) [address] [address] [place], [place] [address]Jhmwgpeme [Moles/Vol]4.2 mmol/LNormal3.5-5.0ProSum[facility] Health [facility] Campusca [place] HospitalComment on above:Performed By: #### 95181-8 #### [facility] ([id number]) [address], [address] [place], [place] [address]Wqocyq [Moles/Vol]137 mmol/YAjaxdr896-123OmrGefwqn [facility] HospitalComment on above:Performed By: #### 71663-8 #### [facility] ([id number]) [address] [address] [place], [place] [address]Ulyu nitrogen [Mass/Vol]13 mg/dLNormal5-27[facility] [place] HospitalComment on above:Performed By: #### 79419-8 #### [facility] ([id number]) [address] [address] [place] [address]VXMISOXH BLOOD COUNTon 53-81-9107Dtftkppgudt distribution width (RBC) [Ratio]21.4 %High11.5-15.0[facility] HospitalComment on above: Performed By: #### 49215-0 #### [facility] ([id number]) [address], [address] [place] [address]Bhcncwqsju (Bld) [Volume fraction]25.0 %Eds50-55TcqUwtmeu [place] HospitalComment on above:Performed By: #### 54998-4 #### [facility] ([id number]) [address], [address] [place], [place] [address]Hyzdsiviua (Bld) [Mass/Vol]7.9 g/dLLow11.7-15.5POhioHealth Grady Memorial HospitalComment on above:Performed By: #### 58780-4 #### [facility] ([id number]) [address], [address] [place] [address]VTO (RBC) [Entitic mass]25.4 owUyh62-37XwyTpotbiHocking Valley Community Hospital Comment on above:Performed By: #### 25653-3 #### [facility] ([id number]) [address], [address] [place] [address]TLDI (RBC) [Mass/Vol]31.4 g/sWTtr39-02XsvBermxsHocking Valley Community Hospital Comment on above:Performed By: #### 79839-6 #### [facility] ([id number]) [address], [address] [place], [place] [address]OZY (RBC) [Entitic vol]81 oADnptxn30-380YkkNfxryy [place] HospitalComment on above:Performed By: #### 80295-8 #### [facility] ([id number]) [address], [address] [place] [address]Wawbtskj mean volume (Bld) [Entitic vol]6.6 fLLow7-12[facility]Med[facility] HospitalComment on above:Performed By: #### 98708-8 #### [facility] ([id number]) [address], [address] [place], [place] [address]Czqbieocg (Bld) [#/Vol]519 10*3/iFBovh922-714ScmXklbcq [place] HospitalComment on above:Performed By: #### 18119-3 #### [facility] ([id number]) [address], [address] [place], [place] [address]BQD COUNT3.09 X10E12/LLow3.80-5.20Pro[facility] Comment on above:Performed By: #### 56303-1 #### [facility] ([id number]) [address], [address] [place], [place] [address]MOX (Bld) [#/Vol]10.7 10*3/uLNormal4.0-11.0ProAkron [facility]'S Hospital HospitalComment on above:Performed By: #### 41574-6 #### [facility] ([id number]) [address], [address] [place], [place] [address]Netgusu.ionized (Bld) [Mass/Vol]on 81-23-8605AJKQZTA CALCIUM4.8 mg/dLNormal4.5-5.3PLancaster Municipal Hospital HospitalComment on above:Performed By: #### 66652-1 #### [facility] ([id number]) [address], [address] [place], [place] [address]Vcekvbe Glucometer (BldC) [Mass/Vol]on 23-44-4613Zseaddy [Mass/Vol]106 mg/aMMhat25-56XwoKmymiz [facility] HospitalGlucose [Mass/Vol]96 mg/dL Tlfdal97-06JzeKwjfny [facility] HospitalGlucose [Mass/Vol]123 mg/cXAcfc38-83 [facility] HospitalGlucose [Mass/Vol]88 mg/yYDkqfkh25-93QqeYnsmuz [facility] HospitalMAGNESIUMon 61-79-7910Mydyqbktk [Mass/Vol]2.1 mg/dLNormal1.8-2.6 [facility] HospitalComment on above:Performed By: #### 74187-4 #### [facility] ([id number]) [address], [address] [place] [address]YSBBYCKMMDqn 63-76-9533Wkxkcthab [Mass/Vol]3.8 mg/dLNormal 2.4-4.9ProKettering Health Behavioral Medical CenterComment on above:Result Comment: SPECIMEN HEMOLYZED, RESULTS INCREASED SLIGHTLY HEMOLYZEDPerformed By: #### 18570-0 #### [facility] ([id number]) [address], [address] [place] [address]MFFKY METABOLIC PANLon 53-58-5373Wqubx gap [Moles/Vol]10 mmol/L Normal5-15ProKettering Health Behavioral Medical CenterComment on above:Performed By: #### ELEC #### [facility] ([id number]) [address], [address] [place] [address]Hzgrayp [Mass/Vol]9.0 mg/dLNormal8.5-10.5ProMedAshtabula County Medical CenterComment on above:Performed By: #### ELEC #### [facility] ([id number]) [address], [address] [place], [place] [address]Hwuhsxwe [Moles/Vol]106 mmol/NXnrscw10-013VfsInzlfh [place] HospitalComment on above:Performed By: #### ELEC #### [facility] ([id number]) [address], [address] [place], [place] [address]UH8 [Moles/Vol]22 mmol/XYdsfyq74-33TvuJhlczc [facility] Comment on above:Performed By: #### ELEC #### [facility] ([id number]) [address], [address] [place], [place] [address]Zgoaxjzejv [Mass/Vol]1.03 mg/dLHigh0.40-1.00Pro[facility] HospitalComment on above:Result Comment: METHOD TRACEABLE TO IDMS STANDARD Performed By: #### ELEC #### [facility] ([id number]) [address], [address] [place], [place] [address]INV/1.73 sq M.predicted among non-blacks MDRD (S/P/Bld) [Vol rate/Area]56 mL/min/{1.73_m2}Low>59Pro[facility] HospitalComment on above: Result Comment: Reported eGFR is based on the CKD-EPI 2020 equation that does not use a race coefficient.Performed By: #### ELEC #### [facility] ([id number]) [address], [address] [place], [place] [address]Rbhkgbi [Mass/Vol]87 mg/oCWxwxcq12-07QwqSqjmrn [facility] Comment on above:Performed By: #### ELEC #### [facility] ([id number]) [address], [address] [place], [place] [address]Vqagcukfs [Moles/Vol]4.4 mmol/LNormal3.5-5.0Pro[facility] HospitalComment on above:Performed By: #### ELEC #### [facility] ([id number]) [address], [address] [place], [place] [address]Ulklcv [Moles/Vol]138 mmol/GFnkoxv055-404JfpTfyutu [place] HospitalComment on above:Performed By: #### ELEC #### [facility] ([id number]) [address], [address] [place], [place] [address]Mkku nitrogen [Mass/Vol]13 mg/dLNormal5-27Pro[facility] HospitalComment on above:Performed By: #### ELEC #### [facility] ([id number]) [address], [address] [place], [place] [address]WN [Catalytic activity/Vol]on 97-27-5199XRH17 U/DVpzowk90-004 [facility] HospitalComment on above:Performed By: #### [id number] #### [facility] ([id number]) [address], [address] [place] [address]VSQTXTGR BLOOD COUNTon 70-95-9409Sjwyqkdoqaw distribution width (RBC) [Ratio]20.1 %High11.5-15.0[facility] [place] HospitalComment on above: Performed By: #### ELEC #### [facility] ([id number]) [address], [facility] [address] [place], [place] [address]Nhxdmcpaeg (Bld) [Volume fraction]26.5 %Spl97-81SbwImznur [place] HospitalComment on above:Performed By: #### ELEC #### [facility] ([id number]) [address], [address] [place], [place] [address]Jrnsexhhmp (Bld) [Mass/Vol]8.5 g/dLLow11.7-15.5[facility] [place] HospitalComment on above:Performed By: #### ELEC #### [facility] ([id number]) [address], [address] [place], [place] [address]WVE (RBC) [Entitic mass]25.9 wyYeu63-92SokQtfynq [facility] Comment on above:Performed By: #### ELEC #### [facility] ([id number]) [address], [address] [place], [place] [address]NJST (RBC) [Mass/Vol]32.1 g/uZBeekvc69-48UdqQsenne [place] HospitalComment on above:Performed By: #### ELEC #### [facility] ([id number]) [address], [address] [place], [place] [address]URP (RBC) [Entitic vol]81 bNJdfmks14-971PclDmudev Cavazos HospitalComment on above:Performed By: #### ELEC #### [facility] ([id number]) [address], [address] [place], [place] [address]Hattdlne mean volume (Bld) [Entitic vol]6.8 fLLow7-12PLanc[facility] HospitalComment on above:Performed By: #### ELEC #### [facility] ([id number]) [address], [address] [place], [place] [address]Qcgqpjthz (Bld) [#/Vol]633 10*3/bGXgtw758-673SblTvixou [place] HospitalComment on above:Performed By: #### ELEC #### [facility] ([id number]) [address], [address] [place] [address]TEE COUNT3.28 X10E12/LLow3.80-5.20ProAk[facility] Hospital Comment on above:Performed By: #### ELEC #### [facility] ([id number]) [address] [address]XQA (Bld) [#/Vol]16.2 10*3/uLHigh4.0-11.0ProAkron Children'S Hospital HospitalComment on above:Performed By: #### ELEC #### [facility] ([id number]) [address] [address]Rfwgxvw.ionized (Bld) [Mass/Vol]on 39-85-5022VAIYIHA CALCIUM5.0 mg/dLNormal4.5-5.3PLancaster Municipal Hospital HospitalComment on above:Performed By: #### ELEC #### [facility] ([id number]) [address] [address] [place] [address]Ardiyvb Glucometer (BldC) [Mass/Vol]on 13-76-2292Dvqfxqi [Mass/Vol]119 mg/kHYflp38-17EorLtyrnc [place] HospitalGlucose [Mass/Vol]128 mg/dL Ttrx96-62HqgSlmhel [place] HospitalGlucose [Mass/Vol]125 mg/oGDwwp33-30PsqIsvfmv [facility] HospitalGlucose [Mass/Vol]88 mg/kSMdmolt94-73EaxMdisww [facility] LIVER PANELon 51-02-9221Zpomdps [Mass/Vol]2.6 g/dLLow3.2-5.3ProMedh[facility] infirmary [facility]os HospitalComment on above:Performed By: #### 80349-1 #### [facility] ([id number]) [address], [address] [place], [place] [address]GXQ [Catalytic activity/Vol]104 U/YGhxspe04-340TkaEmsajy Cavazos HospitalComment on above:Performed By: #### 11481-3 #### [facility] ([id number]) [address], [address] [place], [place] [address]JDQ [Catalytic activity/Vol]6 U/LNormal0-31Pro[facility] HospitalComment on above:Performed By: #### 15419-6 #### [facility] ([id number]) [address], [address] [place], [place] [address]PIM [Catalytic activity/Vol]16 U/LNormal0-41ProSumma Health Akron Campusca [facility]azos HospitalComment on above:Performed By: #### 50492-6 #### [facility] ([id number]) [address], [address] [place], [place] [address]Ludycwfun [Mass/Vol]0.3 mg/dLNormal0.3-1.2ProMedAv[facility] HospitalComment on above:Performed By: #### 59316-6 #### [facility] ([id number]) [address], [address] [place], [place] [address]Oifgvtzed.direct [Mass/Vol]0.1 mg/dLNormal0.0-0.4ProSumma Health Akron Campusca Cavazos HospitalComment on above:Performed By: #### 44496-2 #### [facility] ([id number]) [address], [address] [place], [place] [address]Bsgcljl [Mass/Vol]6.9 g/dLNormal6.0-8.0[facility] Comment on above:Performed By: #### 46201-8 #### [facility] ([id number]) [address], [address] [place], [place] [address]DNMMSPIILzh 87-97-9812Qwbqnjtqu [Mass/Vol]2.9 mg/dLHigh1.8-2.6 [facility] HospitalComment on above:Performed By: #### ELEC #### [facility] ([id number]) [address], [address] [place], [place] [address]KFVNBKVDRNlj 50-63-5392Cjiqhqaxm [Mass/Vol]4.3 mg/dLNormal 2.4-4.9[facility] HospitalComment on above:Performed By: #### 09665-9 #### [facility] ([id number]) [address], [address] [place] [address]FCHLI METABOLIC PANLon 78-68-1712Cotdk gap [Moles/Vol]9 mmol/L Normal5-15[facility] HospitalComment on above:Performed By: #### SANTOSH NAIDU, , 2776-10 #### [facility] ([id number]) [address], [address] [place], [place] [address]Mtbriiv [Mass/Vol]9.4 mg/dLNormal8.5-10.5Pro[facility] HospitalComment on above:Performed By: #### SANTOSH NAIDU, , 2776-10 #### [facility] ([id number]) [address], [address] [place], [place] [address]Gmzxyvtf [Moles/Vol]103 mmol/BDqsqiq34-763UmkCkfhek [place] HospitalComment on above:Performed By: #### SANTOSH NAIDU, , 2776-10 #### [facility] ([id number]) [address] [place], [place] [address]QI1 [Moles/Vol]23 mmol/FKchqdj96-03HejQvjxapOhioHealth Grady Memorial Hospital Comment on above:Performed By: #### SANTOSH NAIDU, , 2776-10 #### [facility] ([id number]) [address] [place], [place] [address]Orvpbfgouz [Mass/Vol]0.94 mg/dLNormal0.40-1.00ProKettering Health Behavioral Medical CenterComment on above:Result Comment: METHOD TRACEABLE TO IDMS STANDARD Performed By: #### SANTOSH NAIDU, , 2776-10 #### [facility] ([id number]) [address] [address] [place], [place] [address]PWD/1.73 sq M.predicted among non-blacks MDRD (S/P/Bld) [Vol rate/Area]62 mL/min/{1.73_m2}Normal>59ProKettering Health Behavioral Medical CenterComment on above: Result Comment: Reported eGFR is based on the CKD-EPI 2020 equation that does not use a race coefficient.Performed By: #### SANTOSH NAIDU, , 2776-10 #### [facility] ([id number]) [address] [address] [place], [place] [address]Zrjmjif [Mass/Vol]89 mg/dUUadnhv09-04QlbBvnjdvHocking Valley Community Hospital Comment on above:Performed By: #### SANTOSH NAIDU, , 2776-10 #### [facility] ([id number]) [address] [place], [place] [address]Gfbvretvy [Moles/Vol]4.2 mmol/LNormal3.5-5.0ProKettering Health Behavioral Medical CenterComment on above:Performed By: #### SANTOSH NAIDU, , 2776-10 #### [facility] ([id number]) [address] [place], [place] [address]Acihdb [Moles/Vol]135 mmol/BAatlfz588-896ZjnTnhiks [place] HospitalComment on above:Performed By: #### SANTOSH NAIDU, , 2776-10 #### [facility] ([id number]) [address] [place], [place] [address]Znsa nitrogen [Mass/Vol]13 mg/dLNormal5-27[facility] HospitalComment on above:Performed By: #### SANTOSH NAIDU, , 2776-10 #### [facility] ([id number]) [address] [place], [place] [address]BRFAFFYF BLOOD COUNTon 79-68-1511Vtozopguaev distribution width (RBC) [Ratio]18.7 %High11.5-15.0[facility] HospitalComment on above: Performed By: #### SANTOSH NAIDU, , 2776-10 #### [facility] ([id number]) [address] [place], [place] [address]Blgnwyrnqw (Bld) [Volume fraction]29.7 %Kys06-06NzgQknefw [place] HospitalComment on above:Performed By: #### SANTOSH NAIDU, , 2776-10 #### [facility] ([id number]) [address] [place], [place] [address]Depyyhnjwc (Bld) [Mass/Vol]9.3 g/dLLow11.7-15.5[facility] HospitalComment on above:Performed By: #### SANTOSH NAIDU, , 2776-10 #### [facility] ([id number]) [address], [address] [place], [place] [address]NVZ (RBC) [Entitic mass]25.1 bgIfs21-91XlkYmxhab [facility] Comment on above:Performed By: #### SANTOSH NAIDU, , 2776-10 #### [facility] ([id number]) [address], [address] [place], [place] [address]KLKK (RBC) [Mass/Vol]31.3 g/uPYlg96-77ZfyGbovthHocking Valley Community Hospital Comment on above:Performed By: #### CBC, BMP, , 2776-10 #### [facility] ([id number]) [address], [address] [place], [place] [address]STU (RBC) [Entitic vol]80 iZMmvwqe04-052ZuwTmfhyj [place] HospitalComment on above:Performed By: #### CBC, BMP, , 2776-10 #### [facility] ([id number]) [address] [place], [place] [address]Wltpfakh mean volume (Bld) [Entitic vol]7.0 fLNormal7-12 [facility] HospitalComment on above:Performed By: #### CBC, BMP, , 2776-10 #### [facility] ([id number]) [address], [address] [place], [place] [address]Tbnsncrqv (Bld) [#/Vol]705 10*3/eLNzun835-429NtdFmhctn [place] HospitalComment on above:Performed By: #### CBC, BMP, , 2776-10 #### [facility] ([id number]) [address], [address] [place], [place] [address]DLD COUNT3.71 X10E12/LLow3.80-5.20[facility] Comment on above:Performed By: #### CBC, BMP, , 2776-10 #### [facility] ([id number]) [address], [address] [place], [place] [address]ZRJ (Bld) [#/Vol]24.4 10*3/uLHigh4.0-11.0ProSumma Health [facility] Campusca Cavazos HospitalComment on above:Performed By: #### CBC, BMP, [address]-8, 2777-1 #### [facility] ([id number]) [address], [address] [place], [place] [address]Popibmy.ionized (Bld) [Mass/Vol]on 38-29-8046TFWHSFN CALCIUM4.8 mg/dLNormal4.5-5.3[facility] HospitalComment on above:Performed By: #### 27181-4 #### [facility] ([id number]) [address], [address] [place], [place] [address]VU SWALLOW MOTILITY FUNCTIONon 41-71-7604JI SWALLOW MOTILITY FUNCTIONFL SWALLOW MOTILITY FUNCTION STUDY: Video fluoroscopic swallow [...] by Denny Pereira MD on 10/15/2023 2:48 PMNormalProMedica Hackettstown HospitalGlucose Glucometer (BldC) [Mass/Vol]on 30-07-1929Ftkepdc [Mass/Vol]111 mg/lLWpcd73-25NhmVfjleu [facility] HospitalGlucose [Mass/Vol]93 mg/nBEdpdmq47-97 [facility] HospitalGlucose [Mass/Vol]99 mg/qKVtfldt35-33GbxXfgzwm [facility] HospitalMAGNESIUMon 57-96-7998Iavgykcpa [Mass/Vol]1.5 mg/dLLow1.8-2.6[facility] HospitalComment on above:Performed By: #### ELEC #### [facility] ([id number]) [address], [address] [place] [address]ROKQJSPJPHsb 94-80-5494Nvlbhdgdd [Mass/Vol]3.4 mg/dLNormal 2.4-4.9[facility] HospitalComment on above:Performed By: #### ELEC #### [facility] ([id number]) [address], [address] [place], [place] [address]Qewhwmkgtw trough [Mass/Vol]on 86-33-5185ZQBOFQFPAM EZHLIF39.5 ug/mLNormal5.0-20.0[facility] HospitalComment on above:Performed By: #### ELEC #### [facility] ([id number]) [address], [address] [place], [place] [address]ODQUCTMNMARWlk 73-14-4665Xmugp gap [Moles/Vol]7 mmol/LNormal5-15 [facility] HospitalComment on above:Performed By: #### ELEC #### [facility] ([id number]) [address], [address] [place], [place] [address]Fvitchlx [Moles/Vol]106 mmol/KSktmou36-870JhwBslzxz [facility] HospitalComment on above:Performed By: #### ELEC #### [facility] ([id number]) [address], [address] [place], [place] [address]EZ4 [Moles/Vol]22 mmol/QBbbbca82-74MsqBnyywk [facility] Comment on above:Performed By: #### ELEC #### [facility] ([id number]) [address], [address] [place], [place] [address]Xhynaxync [Moles/Vol]5.8 mmol/LHigh3.5-5.0[facility] HospitalComment on above:Performed By: #### ELEC #### [facility] ([id number]) [address] [place], [place] [address]Khbjrw [Moles/Vol]135 mmol/AYcvikx199-394TcpQthtqj [place] HospitalComment on above:Performed By: #### ELEC #### [facility] ([id number]) [address], [address] [place] [address]Vnivlxg Glucometer (BldC) [Mass/Vol]on 99-71-7581Lrmecxr [Mass/Vol]84 mg/xAGemmtm45-57IskXphmns [place] HospitalGlucose [Mass/Vol]105 mg/uLRhru93-50VqdRuptgzKettering Health Behavioral Medical CenterGlucose [Mass/Vol]85 mg/cKJyyqoz89-48 [facility] HospitalBLOOD CULTUREon 13-74-4659Wwjuefuq identified Aer cx Nom (Bld)SPECIMEN NOTES SUBOPTIMAL VOLUME OF BLOOD COLLECTED, RESULTS MAY BE AFFECTED. CULTURE RESULTS NO GROWTH 5 DAYSNormalHocking Valley Community HospitalComment on above:Performed By: #### 33182-8 #### [facility] ([id number]) [address], [address] [place] [address]AWZLZ CULTUREon 46-55-4880Edbhvbgk identified Aer cx Nom (Bld) CULTURE RESULTS STAPHYLOCOCCUS AUREUS METHICILLIN RESISTANT Staphylcoccus aureus detected by PCR. mecA/C and MREJ gene detected by PCR (MRSA). Organism: STAPHYLOCOCCUS AUREUS Antibiotic Interpretation NATALIA Status CEFAZOLIN R F CLINDAMYCIN R >=4 F OXACILLIN R >=4 F TRIMETH/SULFAMETHOXAZOLE S <=.5/9.5 F VANCOMYCIN S 1 F DAPTOMYCIN S 0.25 F DOXYCYCLINE S 2 FSusceptibleProKettering Health Behavioral Medical CenterComment on above:Performed By: #### 44808-4 #### [facility] ([id number]) [address] [place], [place] [address]Bcxmwfd [Mass/volume] in Serum or PlasmaOrdered By: Jesus Alberto Aquino on 29-92-7273Kzmkwhn [Mass/Vol]7.5 mg/dL8.6-10.3FOhioHealth Hardin Memorial HospitalCarbon dioxide, total [Moles/volume] in Serum or PlasmaOrdered By: Jesus Alberto Aquino on 99-96-0163PF6 [Moles/Vol]25.5 mmol/L21.0-31.0[facility] HospitalChloride [Moles/volume] in Serum or PlasmaOrdered By: Jesus Alberto Aquino on 64-87-9160Dmcpjbps [Moles/Vol]109 mmol/D59-842WlyxlbtceBrecksville Va / Crille HospitalCreatinine [Mass/volume] in Serum or PlasmaOrdered By: Jesus Alberto Aquino on 32-59-7825Hgqsxfibpo [Mass/Vol]1.08 mg/dL0.60-1.20[facility] HospitalComment on above:Delta: 1.60 on 08/19/23-16Glucose [Mass/volume] in Serum or PlasmaOrdered By: Jesus Alberto Aquino on 61-65-3753Scjadah [Mass/Vol]57 mg/sZ71-249OcbfywvzxBrecksville Va / Crille HospitalComment on above:ADA recommended reference rangeRandom Glucose Reference Range is dependent on time and content of last meal. Glucose of more than 200 mg/dL in a nonstressed, ambulatory subject supports the diagnosisof Diabetes Mellitus.No Panel InformationOrdered By: Jesus Alberto Aquino on 81-53-3187Eiuvpbulf GFR (CKD-EPI)52.905 mL/MinBrecksville Va / Crille HospitalPharmacy Creatinine Clearance (Chem41.58 [facility] HospitalPotassium [Moles/volume] in Serum or Plasma Ordered By: Jesus Alberto Aquino on 71-17-8113Eumbbcoyr [Moles/Vol]4.2 mmol/L3.5-5.1 [facility] Hospitalerum or plasma anion gap determinationOrdered By: Jesus Alberto Aquino on 35-43-8145Lviot gap [Moles/Vol]12.7 mmol/L6.0-15.0 [facility] Hospitalodium [Moles/volume] in Serum or PlasmaOrdered By: Jesus Alberto Aquino on 54-66-0553Fvnhcv [Moles/Vol]143 mmol/Q072-936PqnalaihpBrecksville Va / Crille HospitalUrea nitrogen [Mass/volume] in Serum or PlasmaOrdered By: Jesus Alberto Aquino on 89-02-6238Jmud nitrogen [Mass/Vol]19 mg/dL7-25B[facility] HospitalErythrocyte distribution width Auto (RBC) [Ratio]Ordered By: Jesus Alberto Aquino on 60-35-3393Pvijsgpixow distribution width (RBC) [Ratio]17.2 %11.9-15.3FOhioHealth Hardin Memorial HospitalHematocrit Auto (Bld) [Volume fraction]Ordered By: Jesus Alberto Aquino on 06-26-0291Cnydyqsgpi (Bld) [Volume fraction]31.8 %34.0-46.4FOhioHealth Hardin Memorial HospitalHemoglobin [Mass/volume] in BloodOrdered By: Jesus Alberto Aquino on 87-30-1592Ggrhqqhxrh (Bld) [Mass/Vol]10.3 g/dL11.8-15.4FOhioHealth Hardin Memorial HospitalLeukocytes [#/volume] corrected for nucleated erythrocytes in Blood by Automated coun Ordered By: Jesus Alberto Aquino on 69-60-4913YWS corrected for nucl RBC Auto (Bld) [#/Vol]15.6 10*3/uL3.8-11.6FKettering Health [facility] Township Auto (RBC) [Entitic mass]Ordered By: Jesus Alberto Aquino on 78-74-7548PIZ (RBC) [Entitic mass] 27.7 pg24.7-34.3FMercy Health Springfield Regional Medical CenterHC Auto (RBC) [Mass/Vol] Ordered By: Jesus Alberto Aquino on 56-64-4228NWAI (RBC) [Mass/Vol]32.4 g/dL32.0-35.0 [facility] HospitalMCV Auto (RBC) [Entitic vol]Ordered By: Jesus Alberto Aquino on 97-34-9823FVW (RBC) [Entitic vol]85.4 rT65-171BrrwhdamaBrecksville Va / Crille HospitalPlatelet mean volume Auto (Bld) [Entitic vol]Ordered By: Jesus Alberto Aquino on 77-83-5586Lupoqscb mean volume (Bld) [Entitic vol]8.9 fL6.3-10.7 [facility] HospitalPlatelets Auto (Bld) [#/Vol]Ordered By: Jesus Alberto Aquino on 07-19-0306Zxhnrfxgs (Bld) [#/Vol]201 10*3/tR270-941EgejbwoqxBrecksville Va / Crille HospitalRBC Auto (Bld) [#/Vol]Ordered By: Jesus Alberto Aquino on 12-74-2801XML (Bld) [#/Vol]3.72 10*6/uL3.60-5.00[facility] HospitalBasophils Auto (Bld) [#/Vol]Ordered By: Jesus Alberto Aquino on 52-44-7655Hllcamilo (Bld) [#/Vol]0.1 10*3/uL0.0-0.2FOhioHealth Hardin Memorial HospitalBasophils/100 WBC Auto (Bld)Ordered By: Jesus Alberto Aquino on 40-44-1321Saeesnxnh/100 WBC (Bld)0.3 %. [facility] HospitalEosinophils Auto (Bld) [#/Vol]Ordered By: Jesus Alberto Aquino on 32-44-0918Vghzsdglujw (Bld) [#/Vol]0.0 10*3/uL0.0-0.45 [facility] HospitalEosinophils/100 WBC Auto (Bld)Ordered By: Jesus Alberto Aquino on 65-41-5484Puwrkpdimvq/100 WBC (Bld)0.1 %.[facility] HospitalLymphocytes Auto (Bld) [#/Vol]Ordered By: Jesus Alberto Aquino on 27-04-0029Hpqooueadwi (Bld) [#/Vol]2.8 10*3/uL1.00-4.8[facility] HospitalLymphocytes/100 WBC Auto (Bld)Ordered By: Jesus Alberto Aquino on 08-18-2023 Lymphocytes/100 WBC (Bld)10.9 %.[facility] HospitalMonocytes Auto (Bld) [#/Vol]Ordered By: Jesus Alberto Aquino on 02-04-7571Bplkbzgga (Bld) [#/Vol]1.1 10*3/uL0.0-0.8B[facility] HospitalMonocytes/100 WBC Auto (Bld) Ordered By: Jesus Alberto Aquino on 94-48-6780Yaetuluts/100 WBC (Bld)4.4 %.[facility] HospitalNeutrophils Auto (Bld) [#/Vol]Ordered By: Jesus Alberto Aquino on 07-85-2853Gjkpzjwiygz (Bld) [#/Vol]21.6 10*3/uL1.8-7.7FOhioHealth Hardin Memorial HospitalNeutrophils/100 WBC Auto (Bld)Ordered By: Jesus Alberto Aquino on 94-70-1317Ikzszymlcmg/100 WBC (Bld)84.3 %.[facility] Nucleated erythrocytes [Presence] in Blood by Automated countOrdered By: Jesus Alberto Aquino on 89-52-6949Tdlsbrvci RBC Auto Ql (Bld)0.2 /100{WBC}0-0.5FOhioHealth Hardin Memorial HospitalWBC Auto (Bld) [#/Vol]Ordered By: Jesus Alberto Aquino on 82-70-6843FJY (Bld) [#/Vol]25.6 10*3/uL3.8-11.6FOhioHealth Hardin Memorial Hospital Activated partial thromboplastin time (aPTT) in platelet poor plasma by coagulation aOrdered By: Maury Morrissey on 31-45-3515xPAG Coag (PPP) [Time]26.3 s 25.1-36.5FOhioHealth Hardin Memorial HospitalComment on above:A hematocrit value greater than 55% may lead to inaccurate results in coagulation testing. Patients having hematocrit values >55% require a special collection tube for coagulation studies. Please contact the laboratory at [phone] for redraw instructions. Alanine aminotransferase [Enzymatic activity/volume] in Serum or PlasmaOrdered By: Maury Morrissey on 71-41-3367QLA [Catalytic activity/Vol]24 U/L7-52[facility] HospitalAlbumin [Mass/volume] in Serum or Plasma by Bromocresol green (BCG) dye binding methoOrdered By: Maury Morrissey on 29-20-5916Jdspxjd BCG dye [Mass/Vol]3.4 g/dL3.5-5.7FOhioHealth Hardin Memorial HospitalAlkaline phosphatase [Enzymatic activity/volume] in Serum or PlasmaOrdered By: Maury Morrissey on 93-55-6433EKA [Catalytic activity/Vol]64 U/T68-951KwelnbbsoBrecksville Va / Crille HospitalAnisocytosis LM Ql (Bld)Ordered By: Maury Morrissey on 08-17-2023 Anisocytosis Ql (Bld)ModerateBrecksville Va / Crille HospitalAspartate aminotransferase [Enzymatic activity/volume] in Serum or PlasmaOrdered By: Maury Morrissey on 33-34-5270QDH [Catalytic activity/Vol]23 U/H75-09MhncvlebfBrecksville Va / Crille HospitalAutomated erythrocytes count in urine sediment (number/area) Ordered By: Maury Morrissey on 23-23-6445BVG Auto (Urine sed) [#/Area]0-1 [HPF]0-4 [facility] HospitalAutomated leukocytes count in urine sediment (number/area)Ordered By: Muary Morrissey on 96-53-1155BRI Auto (Urine sed) [#/Area] 1-2 [HPF]0-4FOhioHealth Hardin Memorial HospitalBasophils Auto (Bld) [#/Vol]Ordered By: Maury Morrissey on 54-33-0323Ugqbbgpod (Bld) [#/Vol]0.0 10*3/uL0.0-0.2FOhioHealth Hardin Memorial HospitalBasophils/100 WBC Auto (Bld)Ordered By: Maury Morrissey on 93-66-8449Bzexaipee/100 WBC (Bld)0.2 %.[facility] Bilirubin Test strip Ql (U)Ordered By: Maury Morrissey on 79-76-5240Fgnjprjwc Ql (U) NegativeNegativeBrecksville Va / Crille HospitalBilirubin.direct [Mass/volume] in Serum or PlasmaOrdered By: Maury Morrissey on 82-30-7812Aiikterfl.direct [Mass/Vol]0.20 mg/dL0.03-0.18FOhioHealth Hardin Memorial HospitalBilirubin.total [Mass/volume] in Serum or PlasmaOrdered By: Maury Morrissey on 53-47-9679Veukzxamk [Mass/Vol]0.6 mg/dL0.3-1.0[facility] HospitalCalcium [Mass/volume] in Serum or PlasmaOrdered By: Maury Morrissey on 71-93-7202Cdmnhwc [Mass/Vol]9.1 mg/dL8.6-10.3FOhioHealth Hardin Memorial HospitalCarbon dioxide, total [Moles/volume] in Serum or PlasmaOrdered By: Maury Morrissey on 00-04-4269CT1 [Moles/Vol]27.3 mmol/L21.0-31.0[facility] HospitalChloride [Moles/volume] in Serum or PlasmaOrdered By: Maury Morrissey on 23-48-8346Eayskyck [Moles/Vol]97 mmol/G25-834ZvdxpufntBrecksville Va / Crille HospitalColor Auto (U)Ordered By: Maury Morrissey on 73-73-5740Xsmqz (U)YellowYellowBrecksville Va / Crille HospitalCreatine kinase [Enzymatic activity/volume] in Serum or PlasmaOrdered By: Maury Morrissey on 65-88-1472CX [Catalytic activity/Vol]87 U/Z67-647XxrtiuvfpBrecksville Va / Crille HospitalCreatinine [Mass/volume] in Serum or PlasmaOrdered By: Maury Morrissey on 24-53-7536Tfmajibntj [Mass/Vol]4.44 mg/dL0.60-1.20[facility] HospitalEosinophils Auto (Bld) [#/Vol]Ordered By: Maury Morrissey on 68-19-3533Xeoypwgbcue (Bld) [#/Vol]0.0 10*3/uL0.0-0.45[facility] HospitalEosinophils/100 WBC Auto (Bld)Ordered By: Maury Morrissey on 08-17-2023 Eosinophils/100 WBC (Bld)0.0 %.[facility] HospitalErythrocyte distribution width Auto (RBC) [Ratio]Ordered By: Maury Morrissey on 08-17-2023 Erythrocyte distribution width (RBC) [Ratio]17.6 %11.9-15.3FOhioHealth Hardin Memorial HospitalGlobulin Calc (S) [Mass/Vol]Ordered By: Maury Morrissey on 08-17-2023 Globulin (S) [Mass/Vol]3.7 g/dLBrecksville Va / Crille HospitalGlucose [Mass/volume] in Serum or PlasmaOrdered By: Maury Morrissey on 81-44-8259Jkegqrr [Mass/Vol]79 mg/sL54-825VslfxavwzBrecksville Va / Crille HospitalComment on above:ADA recommended reference rangeRandom Glucose Reference Range is dependent on time and content of last meal. Glucose of more than 200 mg/dL in a nonstressed, ambulatory subject supports the diagnosisof Diabetes Mellitus.Hematocrit Auto (Bld) [Volume fraction]Ordered By: Maury Morrissey on 42-98-1215Waiuqjnabb (Bld) [Volume fraction]37.9 %34.0-46.4FOhioHealth Hardin Memorial HospitalHemoglobin [Mass/volume] in BloodOrdered By: Maury Morrissey on 36-40-9364Qwbphxcnoo (Bld) [Mass/Vol]12.0 g/dL11.8-15.4FOhioHealth Hardin Memorial HospitalHypochromia LM Ql (Bld)Ordered By: Maury Morrissey on 33-53-9090Vglnreqpvqr Ql (Bld)SlightBrecksville Va / Crille HospitalINR in Platelet poor plasma by Coagulation assayOrdered By: Maury Morrissey on 49-28-7342XWC Coag (PPP) [Relative time]1.1 {INR}[facility] HospitalComment on above:INR Therapeutic Range A) Pre- and Peroperative OAT started two weeks before surgery. NOT HIP SURGERY: 1.5 - 2.5 HIP SURGERY: 2 - 3B) Primary and secondary prevention of venous THROMBOSIS: 2 - 3C) Active venous thrombosis, pulmonary embolismand prevention of recurrent venous thrombosis: 2 - 3D) Prevention of arterial thromboembolismincluding patients with mechanical heart valves: 3 - 4.5Ketones Auto test strip (U) [Mass/Vol]Ordered By: Maury Morrissey on 07-07-7234Golpeyc (U) [Mass/Vol]Negative NegativeBrecksville Va / Crille HospitalLaboratory - UrinalysisOrdered By: Maury Morrissey on 94-71-0057Evqeipk casts LM Ql (Urine sed)0-8 [LPF]0-8[facility] HospitalLactate [Moles/volume] in Serum or PlasmaOrdered By: Maury Morrissey on 90-59-5258Hhcrsze [Moles/Vol]1.1 mmol/L0.5-2.2FOhioHealth Hardin Memorial HospitalLeukocytes [#/volume] corrected for nucleated erythrocytes in Blood by Automated counOrdered By: Maury Morrissey on 37-21-4373KNW corrected for nucl RBC Auto (Bld) [#/Vol]29.3 10*3/uL3.8-11.6FOhioHealth Hardin Memorial Hospital Lymphocytes Auto (Bld) [#/Vol]Ordered By: Maury Morrissey on 12-13-8541Squypijarpb (Bld) [#/Vol]2.3 10*3/uL1.00-4.8[facility] HospitalLymphocytes/100 WBC Auto (Bld)Ordered By: Maury Morrissey on 86-51-8973Ospczcfanst/100 WBC (Bld)7.8 %.[facility] HospitalMCH Auto (RBC) [Entitic mass]Ordered By: Maury Morrissey on 69-17-2886AJK (RBC) [Entitic mass]27.3 pg24.7-34.3FOhioHealth Hardin Memorial HospitalMCHC Auto (RBC) [Mass/Vol]Ordered By: Maury Morrissey on 33-50-1967KDQD (RBC) [Mass/Vol]31.6 g/dL32.0-35.0[facility] HospitalMCV Auto (RBC) [Entitic vol]Ordered By: Maury Morrissey on 40-73-2343IGX (RBC) [Entitic vol]86.4 dY51-810NbnsspmgwBrecksville Va / Crille HospitalMonocyte distribution width [Entitic volume] in Blood by AutomatedOrdered By: Maury Morrissey on 14-93-0615Jljfjrvl distribution width Auto (Bld) [Entitic vol]23.25 %0.00-20.00 [facility] HospitalComment on above:For adults in ED, MDW > 20.0 may be associated with a higher risk of sepsis during the first 12 hrs of hospital admissionMonocytes Auto (Bld) [#/Vol]Ordered By: Maury Morrissey on 00-56-3816Gdjdytgxg (Bld) [#/Vol]1.6 10*3/uL0.0-0.8[facility] HospitalMonocytes/100 WBC Auto (Bld)Ordered By: Maury Morrissey on 08-17-2023 Monocytes/100 WBC (Bld)5.5 %.[facility] HospitalNatriuretic peptide B [Mass/Vol]Ordered By: Maury Morrissey on 70-82-7411Uqqvingxodt peptide B (Bld) [Mass/Vol]68.0 pg/mL5-100[facility] HospitalNeutrophils Auto (Bld) [#/Vol]Ordered By: Maury Morrissey on 25-46-6050Xxgbxddrjfi (Bld) [#/Vol]25.4 10*3/uL1.8-7.7FOhioHealth Hardin Memorial HospitalNeutrophils/100 WBC Auto (Bld) Ordered By: Maury Morrissey on 75-80-1667Vpkgehysgqx/100 WBC (Bld)86.5 %.[facility] HospitalNitrite Test strip Ql (U)Ordered By: Maury Morrissey on 04-61-0513Xxuqgsl Ql (U)NegativeNegativeBrecksville Va / Crille HospitalNo Panel InformationOrdered By: Maury Morrissey on 32-16-9670Cczyvsxjs GFR (CKD-EPI) 9.700 mL/MinBrecksville Va / Crille HospitalPharmacy Creatinine Clearance (Chem 10.00[facility] HospitalNucleated erythrocytes [Presence] in Blood by Automated countOrdered By: Maury Morrissey on 75-14-4767Gerqdqktl RBC Auto Ql (Bld)0.1 /100{WBC}0-0.5FOhioHealth Hardin Memorial HospitalPlatelet adequacy [Presence] in Blood by Light microscopyOrdered By: Maury Morrissey on 08-17-2023 Platelets LM Ql (Bld)NormalSelect Medical Cleveland Clinic Rehabilitation Hospital, Edwin ShawPlatelet mean volume Auto (Bld) [Entitic vol]Ordered By: Maury Morrissey on 48-31-8036Tkszyrmt mean volume (Bld) [Entitic vol]8.8 fL6.3-10.7FOhioHealth Hardin Memorial Hospital Platelet morphology finding [Identifier] in BloodOrdered By: Maury oMrrissey on 68-90-9554Shixlfwi morphology finding Nom (Bld)NormalSelect Medical Cleveland Clinic Rehabilitation Hospital, Edwin ShawPlatelets Auto (Bld) [#/Vol]Ordered By: Maury Morrissey on 08-17-2023 Platelets (Bld) [#/Vol]298 10*3/aQ744-866IxjruehenBrecksville Va / Crille Hospital Polychromasia [Presence] in Blood by Light microscopyOrdered By: Maury Morrissey on 75-90-3364Ykiqkbdkupwgm LM Ql (Bld)SlightBrecksville Va / Crille Hospital Potassium [Moles/volume] in Serum or PlasmaOrdered By: Maury Morrissey on 08-17-2023 Potassium [Moles/Vol]4.5 mmol/L3.5-5.1FOhioHealth Hardin Memorial HospitalProtein Auto test strip (U) [Mass/Vol]Ordered By: Maury Morrissey on 08-55-0467Lhnpfcj (U) [Mass/Vol]NegativeNegativeBrecksville Va / Crille HospitalProtein [Mass/volume] in Serum or PlasmaOrdered By: Maury Morrissey on 97-72-4153Daowkbl [Mass/Vol]7.1 g/dL6.4-8.9[facility] HospitalProthrombin time (PT)Ordered By: Maury Morrissey on 26-98-7729NO Coag (PPP) [Time]12.6 s9.0-12.9[facility] HospitalComment on above:A hematocrit value greater than 55% may lead to inaccurate results in coagulation testing. Patientshaving hematocrit values >55% require a special collection tube for coagulation studies. Please contact the laboratory at [phone] for redraw instructions.RBC Auto (Bld) [#/Vol]Ordered By: Maury Morrissey on 44-43-9713HPN (Bld) [#/Vol]4.39 10*6/uL3.60-5.00[facility] HospitalRBC morphologyOrdered By: Maury Morrissey on 67-55-6300UZS morphology finding Nom (Bld)N/AFUniversity Hospitals TriPoint Medical Centererum or plasma albumin/globulin mass ratioOrdered By: Maury Morrissey on 87-61-0569Hkqiyfm/Globulin [Mass ratio]0.9 {ratio}[facility]mount Hospitalerum or plasma anion gap determinationOrdered By: Maury Morrissey on 43-25-6998Zaoou gap [Moles/Vol]23.2 mmol/L6.0-15.0Mary[facility] Hospitalerum or plasma non- glucuronidated bilirubin measurement (mass/volume)Ordered By: Maury Morrissey on 42-24-5448Hlsdyohtb.indirect [Mass/Vol]0.4 mg/dLMarymount Hospitalodium [Moles/volume] in Serum or PlasmaOrdered By: Maury Morrissey on 11-19-7275Dyhwuh [Moles/Vol]143 mmol/X324-771QrsetotpbBrecksville Va / Crille Hospital Specific gravity Auto test strip (U) [Rel density]Ordered By: Maury Morrissey on 67-10-6422Ygsnyonf gravity (U) [Rel density]1.0081.001-1.030Marymount Hospitalquamous epithelial cells detection in urine sediment by light microscopyOrdered By: Maury Morrissey on 12-22-4771Rzmzrjkgrj cells.squamous LM Ql (Urine sed)None seen [HPF]0-2FOhioHealth Hardin Memorial HospitalTroponin I.cardiac [Mass/volume] in Serum or Plasma by Detection limit <= 0.01 ng/Ordered By: Maury Morrissey 76-61-2254Eysgyqbx I.cardiac DL <= 0.01 ng/mL [Mass/Vol]38.1 pg/mL0.0-15.0[facility] HospitalUrea nitrogen [Mass/volume] in Serum or PlasmaOrdered By: Maury Morrissey 46-24-7480Hzoo nitrogen [Mass/Vol]92 mg/dL7-25[facility] HospitalUrine bacteria detection by automated methodOrdered By: Maury Morrissey 61-91-2384Rbssbuvp Auto Ql (U)1+None Seen [facility] HospitalUrine clarity by refractometry automatedOrdered By: Maury Morrissey on 19-97-1444Roeaxdh Refractometry automated (U)ClearClear [facility] HospitalUrine glucose measurement by automated test strip (mass/volume)Ordered By: Maury Morrissey 05-96-5684Couprpq Auto test strip (U) [Mass/Vol]Normal mg/dLNormalBrecksville Va / Crille HospitalUrine hemoglobin detection by automated test stripOrdered By: Maury Morrissey on 48-72-8729Qiiiigivok Auto test strip Ql (U)TraceNegativeBrecksville Va / Crille HospitalUrine leukocyte esterase detection by automated test stripOrdered By: Maury Morrissey on 31-29-0184Wezkzjoja esterase Auto test strip Ql (U)Negative NegativeBrecksville Va / Crille HospitalUrobilinogen Auto test strip (U) [Mass/Vol]Ordered By: Maury Morrissey on 03-32-5782Aqhkzrpgxxzm (U) [Mass/Vol]Normal mg/dLNormalBrecksville Va / Crille HospitalWBC Auto (Bld) [#/Vol]Ordered By: Maury Morrissey on 01-35-9391EZK (Bld) [#/Vol]29.3 10*3/uL3.8-11.6FOhioHealth Hardin Memorial HospitalpH Auto test strip (U)Ordered By: Maury Morrissey on 65-03-6677jZ (U) 5.5 [pH]5.0-9.0[facility] HospitalAnisocytosis LM Ql (Bld)Ordered By: Bhavesh Cristobal on 84-51-9908Ankfkveuuvar Ql (Bld)[facility] HealthBasophils Auto (Bld) [#/Vol]Ordered By: Bhavesh Cristobal on 07-14-2023 Basophils (Bld) [#/Vol]0.1 10*3/uL0.0-0.2FOhioHealth Hardin Memorial Hospital Basophils/100 WBC Auto (Bld)Ordered By: Bhavesh Cristobal on 84-14-4964Rklzwynni/100 WBC (Bld)0.3 %.[facility] HospitalCalcium [Mass/volume] in Serum or PlasmaOrdered By: Bhavesh Cristobal on 60-94-2552Idgmemj [Mass/Vol]8.0 mg/dL 8.6-10.3FOhioHealth Hardin Memorial HospitalCarbon dioxide, total [Moles/volume] in Serum or PlasmaOrdered By: Bhavesh Cristobal on 75-92-1464NH2 [Moles/Vol]28.1 mmol/L 21.0-31.0[facility] HospitalChloride [Moles/volume] in Serum or PlasmaOrdered By: Bhavesh Cristobal on 46-51-6531Kechsxvu [Moles/Vol]110 mmol/L98-107 [facility] HospitalCreatinine [Mass/volume] in Serum or Plasma Ordered By: Bhavesh Cristobal on 23-39-8222Bokvotmilv [Mass/Vol]1.10 mg/dL0.60-1.20 [facility] HospitalEosinophils Auto (Bld) [#/Vol]Ordered By: Bhavesh Cristobal on 67-46-9301Agqvnitjker (Bld) [#/Vol]0.1 10*3/uL0.0-0.45[facility] HospitalEosinophils/100 WBC Auto (Bld)Ordered By: Bhavesh Cristobal on 28-64-2678Axoyjinkwqu/100 WBC (Bld)0.4 %.[facility] Erythrocyte distribution width Auto (RBC) [Ratio]Ordered By: Bhavesh Cristobal on 19-89-0537Pawsiuwmfcl distribution width (RBC) [Ratio]22.8 %11.9-15.3FOhioHealth Hardin Memorial HospitalGlucose Glucometer (BldC) [Mass/Vol]Ordered By: Jolanta Mckenzie on 84-34-2441Fzldydq [Mass/Vol]80 mg/dLBrecksville Va / Crille Hospital Comment on above:Random Glucose Reference Range is dependent on time and content of last meal. Glucose of more than 200 mg/dL in a nonstressed, ambulatory subject supports the diagnosis of Diabetes Mellitus.Glucose [Mass/volume] in Serum or PlasmaOrdered By: Bhavesh Cristobal on 08-81-7081Jsvnaxz [Mass/Vol]84 mg/dL 70-100[facility] HospitalComment on above:ADA recommended reference rangeRandom Glucose Reference Range is dependent on time and content of last meal. Glucose of more than 200 mg/dL in a nonstressed, ambulatory subject supports the diagnosisof Diabetes Mellitus.Hematocrit Auto (Bld) [Volume fraction]Ordered By: Bhavesh Cristobal on 56-85-5569Orhkcpszot (Bld) [Volume fraction]33.6 %34.0-46.4FOhioHealth Hardin Memorial HospitalHemoglobin [Mass/volume] in BloodOrdered By: Bhavesh Cristobal on 40-87-1101Ulecacpppk (Bld) [Mass/Vol]10.5 g/dL11.8-15.4FOhioHealth Hardin Memorial HospitalHypochromia LM Ql (Bld)Ordered By: Bhavesh Cristobal on 69-29-3774Qphgtqkufxq Ql (Bld)SlightBrecksville Va / Crille HospitalLeukocytes [#/volume] corrected for nucleated erythrocytes in Blood by Automated counOrdered By: Bhavesh Cristobal on 38-74-9926PSK corrected for nucl RBC Auto (Bld) [#/Vol]19.3 10*3/uL3.8-11.6FOhioHealth Hardin Memorial HospitalLymphocytes Auto (Bld) [#/Vol]Ordered By: Bhavesh Cristobal on 94-67-5860Pakpozwfojo (Bld) [#/Vol]4.3 10*3/uL1.00-4.8[facility] HospitalLymphocytes/100 WBC Auto (Bld)Ordered By: Bhavesh Cristobal on 07-14-2023 Lymphocytes/100 WBC (Bld)22.1 %.[facility] HospitalH Auto (RBC) [Entitic mass]Ordered By: Bhavesh Cristobal on 90-27-5601ZFA (RBC) [Entitic mass]26.2 pg24.7-34.3FOhioHealth Hardin Memorial HospitalMCHC Auto (RBC) [Mass/Vol]Ordered By: Bhavesh Cristobal on 48-00-4511SXSW (RBC) [Mass/Vol]31.2 g/dL32.0-35.0[facility] HospitalMCV Auto (RBC) [Entitic vol]Ordered By: Bhavesh Cristobal on 70-86-8345FUF (RBC) [Entitic vol]84.0 tJ43-536VisqnxecsBrecksville Va / Crille Hospital Monocytes Auto (Bld) [#/Vol]Ordered By: Bhavesh Cristobal on 85-58-5579Obfwjtmnc (Bld) [#/Vol]1.4 10*3/uL0.0-0.8[facility] HospitalMonocytes/100 WBC Auto (Bld)Ordered By: Bhavesh Cristobal on 45-55-2593Xihcavlft/100 WBC (Bld)7.3 %. [facility] HospitalNeutrophils Auto (Bld) [#/Vol]Ordered By: Bhavesh Cristobal on 02-57-2710Ueemlxwhkgh (Bld) [#/Vol]13.5 10*3/uL1.8-7.7FOhioHealth Hardin Memorial HospitalNeutrophils/100 WBC Auto (Bld)Ordered By: Bhavesh Cristobal on 35-93-3766Zxscltnpysm/100 WBC (Bld)69.9 %.[facility] HospitalNo Panel InformationOrdered By: Bhavesh Cristobal on 93-42-0882Pbpzstcph GFR (CKD-EPI) 51.753 mL/MinBrecksville Va / Crille HospitalPharmacy Creatinine Clearance (Chem42.83[facility] HospitalNucleated erythrocytes [Presence] in Blood by Automated countOrdered By: Bhavesh Cristobal on 91-93-6289Gwpivgkol RBC Auto Ql (Bld)0.1 /100{WBC}0-0.5FOhioHealth Hardin Memorial HospitalPlatelet adequacy [Presence] in Blood by Light microscopyOrdered By: Bhavesh Cristobal on 07-14-2023 Platelets LM Ql (Bld)NormalNoShelby Memorial HospitalPlatelet mean volume Auto (Bld) [Entitic vol]Ordered By: Bhavesh Cristobal on 59-56-2717Kiyaszuf mean volume (Bld) [Entitic vol]7.9 fL6.3-10.7FOhioHealth Hardin Memorial Hospital Platelet morphology finding [Identifier] in BloodOrdered By: Bahvesh Cristobal on 29-84-3215Towaxcll morphology finding Nom (Bld)NormalNoShelby Memorial HospitalPlatelets Auto (Bld) [#/Vol]Ordered By: Bhavesh Cristobal on 07-14-2023 Platelets (Bld) [#/Vol]238 10*3/xZ227-033PvrxavlejBrecksville Va / Crille Hospital Polychromasia [Presence] in Blood by Light microscopyOrdered By: Bhavesh Cristobal on 17-45-6277Tqpbdovqnjztj LM Ql (Bld)[facility] Potassium [Moles/volume] in Serum or PlasmaOrdered By: Bhavesh Cristobal on 07-14-2023 Potassium [Moles/Vol]4.2 mmol/L3.5-5.1FOhioHealth Hardin Memorial HospitalRBC Auto (Bld) [#/Vol]Ordered By: Bhavesh Cristobal on 68-52-3782YIR (Bld) [#/Vol]4.00 10*6/uL 3.60-5.00[facility] HospitalRBC morphologyOrdered By: Bhavesh Cristobal on 22-29-4527MTA morphology finding Nom (Bld)N/AFUniversity Hospitals TriPoint Medical Centererum or plasma anion gap determinationOrdered By: Bhavesh Cristobal on 41-79-6296Pmqvk gap [Moles/Vol]9.1 mmol/L6.0-15.0[facility] Hospitalodium [Moles/volume] in Serum or PlasmaOrdered By: Bhavesh Cristobal on 69-47-1771Vclebo [Moles/Vol]143 mmol/S536-227NlcirdouhBrecksville Va / Crille Hospital Urea nitrogen [Mass/volume] in Serum or PlasmaOrdered By: Bhavesh Cristobal on 82-66-3618Dksi nitrogen [Mass/Vol]24 mg/dL7-25[facility] WBC Auto (Bld) [#/Vol]Ordered By: Bhavesh Cristobal on 93-61-0938PYA (Bld) [#/Vol]19.3 10*3/uL3.8-11.6FOhioHealth Hardin Memorial HospitalAlanine aminotransferase [Enzymatic activity/volume] in Serum or PlasmaOrdered By: Jolanta Mckenzie on 91-92-7606HWW [Catalytic activity/Vol]16 U/L7-52[facility] HospitalAlbumin [Mass/volume] in Serum or Plasma by Bromocresol green (BCG) dye binding methoOrdered By: Jolanta Mckenzie on 80-31-8177Ccysplz BCG dye [Mass/Vol] 3.0 g/dL3.5-5.7FOhioHealth Hardin Memorial HospitalAlkaline phosphatase [Enzymatic activity/volume] in Serum or PlasmaOrdered By: Jolanta Mckenzie on 60-56-2271PVD [Catalytic activity/Vol]45 U/X91-646EgjsljcydBrecksville Va / Crille HospitalAspartate aminotransferase [Enzymatic activity/volume] in Serum or PlasmaOrdered By: Jolanta Mckenzie on 66-88-5158CNU [Catalytic activity/Vol]14 U/R48-36PrpdqgdldBrecksville Va / Crille HospitalBilirubin.total [Mass/volume] in Serum or PlasmaOrdered By: Jolanta Mckenzie on 31-88-0495Gegchbhie [Mass/Vol]0.3 mg/dL0.3-1.0[facility] HospitalGlobulin Calc (S) [Mass/Vol]Ordered By: Jolanta Mckenzie on 55-24-2352Gvrbtmoi (S) [Mass/Vol]2.7 g/dLBrecksville Va / Crille Hospital Protein [Mass/volume] in Serum or PlasmaOrdered By: Jolantasid Mckenzie on 07-12-2023 Protein [Mass/Vol]5.7 g/dL6.4-8.9[facility] Hospitalerum or plasma albumin/globulin mass ratioOrdered By: Jolantasid Mckenzie on 07-12-2023 Albumin/Globulin [Mass ratio]1.1 {ratio}[facility] Acanthocytes [Presence] in Blood by Light microscopyOrdered By: Smooth Dominguez on 84-34-0354Ndhlitefagpf LM Ql (Bld)SlightBrecksville Va / [facility]ille Hospital Aerobic cultureOrdered By: Jolanta Mckenzie on 23-03-7162Wztgnluu identified Aer cx Nom (Unsp spec)[facility] HospitalAnisocytosis LM Ql (Bld)Ordered By: Smooth Dominguez on 08-23-4546Yozggvhonqcu Ql (Bld)ModerateBrecksville Va / Crille HospitalAutomated erythrocytes count in urine sediment (number/area) Ordered By: Smooth Dominguez on 55-68-0128RBB Auto (Urine sed) [#/Area]3-4 [HPF]0-4 [facility] HospitalAutomated leukocytes count in urine sediment (number/area)Ordered By: Smooth Dominguez on 75-16-0287CAZ Auto (Urine sed) [#/Area]Innumerable [HPF]0-4FOhioHealth Hardin Memorial HospitalBacterial blood cultureOrdered By: Smooth Dominguez on 16-16-2988Divduenc identified Cx Nom (Bld)NO GROWTH 5 DAYSBrecksville Va / Crille HospitalBasophils Auto (Bld) [#/Vol] Ordered By: Smooth Dominguez on 92-09-3737Csewqooyc (Bld) [#/Vol]0.0 10*3/uL0.0-0.2 [facility] HospitalBasophils/100 WBC Auto (Bld)Ordered By: Smooth Dominguez on 98-70-7417Yqocnjkrp/100 WBC (Bld)0.2 %.[facility] HospitalBilirubin Test strip Ql (U)Ordered By: Smooth Dominguez on 07-10-2023 Bilirubin Ql (U)NegativeNegativeBrecksville Va / Crille HospitalCalcium [Mass/volume] in Serum or PlasmaOrdered By: Smooth Dominguez on 80-47-0634Rsixrkh [Mass/Vol]8.9 mg/dL8.6-10.3FOhioHealth Hardin Memorial HospitalCarbon dioxide, total [Moles/volume] in Serum or PlasmaOrdered By: Smooth Dominguez on 07-10-2023 CO2 [Moles/Vol]32.4 mmol/L21.0-31.0[facility] HospitalChloride [Moles/volume] in Serum or PlasmaOrdered By: Smooth Dominguez on 82-50-0047Atctmbac [Moles/Vol]105 mmol/D63-302RcpcwbuxsBrecksville Va / Crille HospitalColor Auto (U) Ordered By: Smooth Dominguez on 46-57-0426Oaiqa (U)YellowYellowBrecksville Va / Crille HospitalCreatinine [Mass/volume] in Serum or PlasmaOrdered By: Smooth Dominguez on 72-16-1787Xhyhzidmpy [Mass/Vol]1.56 mg/dL0.60-1.20[facility] HospitalEosinophils Auto (Bld) [#/Vol]Ordered By: Smooth Dominguez on 69-70-1189Pcnynfcymbi (Bld) [#/Vol]0.1 10*3/uL0.0-0.45[facility] HospitalEosinophils/100 WBC Auto (Bld)Ordered By: Smooth Dominguez on 07-10-2023 Eosinophils/100 WBC (Bld)0.4 %.[facility] HospitalErythrocyte distribution width Auto (RBC) [Ratio]Ordered By: Smooth Dominguez on 07-10-2023 Erythrocyte distribution width (RBC) [Ratio]22.2 %11.9-15.3FOhioHealth Hardin Memorial HospitalGlucose [Mass/volume] in Serum or PlasmaOrdered By: Smooth Dominguez on 88-09-9948Ljgncsr [Mass/Vol]83 mg/nK64-988UjnguvorkBrecksville Va / Crille Hospital Comment on above:ADA recommended reference rangeRandom Glucose Reference Range is dependent on time and content of last meal. Glucose of more than 200 mg/dL in a nonstressed, ambulatory subject supports the diagnosisof Diabetes Mellitus. Gram stain for investigation of transfusion reactionOrdered By: Jolanta Mckenzie on 22-05-3737Xwkeydmtdar observation Gram stain Nom (Unsp spec)[facility] HospitalHematocrit Auto (Bld) [Volume fraction]Ordered By: Smooth Dominguez on 67-41-6976Kjdwdphelo (Bld) [Volume fraction]34.4 %34.0-46.4FOhioHealth Hardin Memorial HospitalHemoglobin [Mass/volume] in BloodOrdered By: Smooth Dominguez on 00-52-5473Mhxmrmtbgr (Bld) [Mass/Vol]11.0 g/dL11.8-15.4FOhioHealth Hardin Memorial HospitalHypochromia LM Ql (Bld)Ordered By: Smooth Dominguez on 07-10-2023 Hypochromia Ql (Bld)SlightBrecksville Va / Crille HospitalINR in Platelet poor plasma by Coagulation assayOrdered By: Smooth Dominguez on 70-91-6319JBD Coag (PPP) [Relative time]0.9 {INR}[facility] HospitalComment on above:INR Therapeutic Range A) Pre- and Peroperative OAT started two weeks before surgery. NOT HIP SURGERY: 1.5 - 2.5 HIP SURGERY: 2 - 3B) Primary and secondary prevention of venous THROMBOSIS: 2 - 3C) Active venous thrombosis, pulmonary embolismand prevention of recurrent venous thrombosis: 2 - 3D) Prevention of arterial thromboembolismincluding patients with mechanical heart valves: 3 - 4.5Ketones Auto test strip (U) [Mass/Vol]Ordered By: Smooth Dominguez on 90-91-0805Wonrvsx (U) [Mass/Vol]NegativeNegativeBrecksville Va / Crille HospitalLaboratory - UrinalysisOrdered By: Smooth Dominguez on 20-61-8324Asdqfdc casts LM Ql (Urine sed) 0-8 [LPF]0-8[facility] HospitalLactate [Moles/volume] in Serum or PlasmaOrdered By: Smooth Dominguez on 28-76-6456Nzozorm [Moles/Vol]1.6 mmol/L 0.5-2.2FOhioHealth Hardin Memorial HospitalLeukocytes [#/volume] corrected for nucleated erythrocytes in Blood by Automated counOrdered By: Smooth Dominguez on 49-46-6182RUU corrected for nucl RBC Auto (Bld) [#/Vol]21.3 10*3/uL3.8-11.6 [facility] HospitalLymphocytes Auto (Bld) [#/Vol]Ordered By: Smooth Dominguez on 73-22-7048Vhpgxfzlrui (Bld) [#/Vol]6.7 10*3/uL1.00-4.8[facility] HospitalLymphocytes/100 WBC Auto (Bld)Ordered By: Smooth Dominguez on 46-74-3353Bmcfzsylqkl/100 WBC (Bld)31.5 %.[facility] MCH Auto (RBC) [Entitic mass]Ordered By: Smooth Dominguez on 27-87-5129HHJ (RBC) [Entitic mass]26.5 pg24.7-34.3FOhioHealth Hardin Memorial HospitalMCHC Auto (RBC) [Mass/Vol]Ordered By: Smooth Dominguez on 80-20-9151HYWO (RBC) [Mass/Vol]32.0 g/dL 32.0-35.0[facility] HospitalMCV Auto (RBC) [Entitic vol]Ordered By: Smooth Dominguez on 12-25-2889MYM (RBC) [Entitic vol]82.7 nJ34-728TddkfzhjaBrecksville Va / Crille HospitalMicrocytes LM Ql (Bld)Ordered By: Smooth Dominguez on 08-28-8861Hqdotiaerf Ql (Bld)ModerateBrecksville Va / Crille HospitalMonocytes Auto (Bld) [#/Vol]Ordered By: Smooth Dominguez on 11-61-6566Ertgiofvm (Bld) [#/Vol] 1.4 10*3/uL0.0-0.8[facility] HospitalMonocytes/100 WBC Auto (Bld) Ordered By: Smooth Dominguez on 53-04-2386Uqdwndoro/100 WBC (Bld)6.5 %.[facility] HospitalNatriuretic peptide B [Mass/Vol]Ordered By: Smooth Dominguez on 69-82-7636Bwbhzlrvrbd peptide B (Bld) [Mass/Vol]54.0 pg/mL5-100[facility] HospitalNeutrophils Auto (Bld) [#/Vol]Ordered By: Smooth Dominguez on 88-15-4064Zkcaibhlozx (Bld) [#/Vol]13.1 10*3/uL1.8-7.7FOhioHealth Hardin Memorial HospitalNeutrophils/100 WBC Auto (Bld)Ordered By: Smooth Dominguez on 18-61-9602Ntvsfstoxon/100 WBC (Bld)61.4 %.[facility] Nitrite Test strip Ql (U)Ordered By: Smooth Dominguez on 70-47-8984Hxfkilk Ql (U) PositiveNegativeBrecksville Va / Crille HospitalNo Panel InformationOrdered By: Smooth Dominguez on 16-92-1519Eekhygocw GFR (CKD-EPI)34.030 mL/MinBrecksville Va / Crille HospitalPharmacy Creatinine Clearance (ChemN/[facility] HospitalNucleated erythrocytes [Presence] in Blood by Automated count Ordered By: Smooth Dominguez on 69-98-6103Jmomdgyeb RBC Auto Ql (Bld)0.1 /100{WBC} 0-0.5FOhioHealth Hardin Memorial HospitalOvalocyte detectionOrdered By: Smooth Dominguez on 56-50-5052Wrwbwsssvr LM Ql (Bld)SlightBrecksville Va / Crille HospitalPlatelet adequacy [Presence] in Blood by Light microscopyOrdered By: Smooth Dominguez on 90-07-9000Bijkdpwuu LM Ql (Bld)NormalNormalBrecksville Va / Crille HospitalPlatelet mean volume Auto (Bld) [Entitic vol]Ordered By: Smooth Dominguez on 94-00-9528Pkgayzsm mean volume (Bld) [Entitic vol]8.0 fL6.3-10.7 [facility] Crille HospitalPlatelet morphology finding [Identifier] in BloodOrdered By: Smooth Dominguez on 39-60-8311Eebakimg morphology finding Nom (Bld)N/[facility] HospitalPlatelets Auto (Bld) [#/Vol]Ordered By: Smooth Dominguez on 10-49-6778Zxtvylawq (Bld) [#/Vol]250 10*3/sX384-036TzdyixbgvBrecksville Va / Crille HospitalPoikilocytosis [Presence] in Blood by Light microscopy Ordered By: Smooth Dominguez on 60-20-3331Cibtrohoycyawf LM Ql (Bld)[facility] HospitalPolychromasia [Presence] in Blood by Light microscopy Ordered By: Smooth Dominguez on 82-66-9393Bliwcmuxzdyri LM Ql (Bld)[facility] HospitalPotassium [Moles/volume] in Serum or PlasmaOrdered By: Smooth Dominguez on 28-48-1775Ojldinmhr [Moles/Vol]3.9 mmol/L3.5-5.1FOhioHealth Hardin Memorial HospitalProtein Auto test strip (U) [Mass/Vol]Ordered By: Smooth Dominguez on 91-76-7599Tcnbyvy (U) [Mass/Vol]30 mg/dLNegativeBrecksville Va / Crille HospitalProthrombin time (PT)Ordered By: Smooth Dominguez on 47-32-7762NN Coag (PPP) [Time]10.6 s9.0-12.9Brecksville [facility] / Crille HospitalComment on above:A hematocrit value greater than 55% may lead to inaccurate results in coagulation testing. Patientshaving hematocrit values >55% require a special collection tube for coagulation studies. Please contact the laboratory at [phone] for redraw instructions.RBC Auto (Bld) [#/Vol]Ordered By: Smooth Dominguez on 82-20-4121KER (Bld) [#/Vol]4.17 10*6/uL3.60-5.00[facility] HospitalRBC morphologyOrdered By: Smooth Dominguez on 17-78-6273IEG morphology finding Nom (Bld)N/AFUniversity Hospitals TriPoint Medical Centererum or plasma anion gap determinationOrdered By: Smooth Dominguez on 29-27-1534Dkrnn gap [Moles/Vol]9.5 mmol/L6.0-15.0[facility] Hospitalodium [Moles/volume] in Serum or PlasmaOrdered By: Smooth Dominguez on 37-26-7538Tkxvkc [Moles/Vol]143 mmol/H331-232ZuagvdlamMarymount Hospitalpecific gravity Auto test strip (U) [Rel density]Ordered By: Smooth Dominguez on 91-88-3324Zhqmbeiy gravity (U) [Rel density]1.0221.001-1.030[facility] Squamous epithelial cells detection in urine sediment by light microscopyOrdered By: Smooth Dominguez on 26-12-1224Uzvsqwunqx cells.squamous LM Ql (Urine sed)1-2 [HPF]0-2FOhioHealth Hardin Memorial HospitalTeardrop cell detectionOrdered By: Smooth Dominguez on 79-91-5128Tygpxjnxqg LM Ql (Bld)SlightBrecksville Va / Crille HospitalTroponin I.cardiac [Mass/volume] in Serum or Plasma by Detection limit <= 0.01 ng/Ordered By: Smooth Dominguez on 94-45-9219Qpphqdlr I.cardiac DL <= 0.01 ng/mL [Mass/Vol]11.7 pg/mL0.0-15.0[facility] HospitalUrea nitrogen [Mass/volume] in Serum or PlasmaOrdered By: Smooth Dominguez on 25-21-7180Zkfh nitrogen [Mass/Vol]36 mg/dL7-25[facility] HospitalUrine bacteria detection by automated methodOrdered By: Smooth Dominguez on 45-04-0661Dywkvukm Auto Ql (U)2+None SeenBrecksville Va / Crille HospitalUrine clarity by refractometry automatedOrdered By: Smooth Dominguez on 88-53-9261Diskyur Refractometry automated (U)CloudyCleMercy HealthUrine culture routineOrdered By: Smooth Dominguez on 07-85-4202Qxovvord identified Cx Nom (U)Proteus mirabilisBrecksville Va / Crille HospitalUrine glucose measurement by automated test strip (mass/volume)Ordered By: Smooth Dominguez on 07-10-2023 Glucose Auto test strip (U) [Mass/Vol]Normal mg/dLNoShelby Memorial HospitalUrine hemoglobin detection by automated test stripOrdered By: Smooth Dominguez on 85-60-8200Czuropdtxz Auto test strip Ql (U)NegativeNegative [facility] HospitalUrine leukocyte esterase detection by automated test stripOrdered By: Smooth Dominguez on 17-00-2342Oedikxkqh esterase Auto test strip Ql (U)4+NegativeBrecksville Va / Crille HospitalUrobilinogen Auto test strip (U) [Mass/Vol]Ordered By: Smooth Dominguez on 33-79-5642Swfradqekicq (U) [Mass/Vol]Normal mg/dLNoShelby Memorial HospitalWBC Auto (Bld) [#/Vol]Ordered By: Smooth Dominguez on 52-70-1211MXV (Bld) [#/Vol]21.3 10*3/uL 3.8-11.6FOhioHealth Hardin Memorial HospitalpH Auto test strip (U)Ordered By: Smooth Dominguez on 04-03-9298nZ (U)8.5 [pH]5.0-9.0[facility] Alanine aminotransferase [Enzymatic activity/volume] in Serum or PlasmaOrdered By: Kadie Bullimore on 96-43-7515SXO [Catalytic activity/Vol]14 U/L7-52 [facility] HospitalAlbumin [Mass/volume] in Serum or Plasma by Bromocresol green (BCG) dye binding methoOrdered By: Kadie Abhilashimore on 86-91-1257Itsepio BCG dye [Mass/Vol]3.4 g/dL3.5-5.7FOhioHealth Hardin Memorial HospitalAlkaline phosphatase [Enzymatic activity/volume] in Serum or PlasmaOrdered By: Kadie Bullimore on 85-16-4173YAB [Catalytic activity/Vol]48 U/L34-104 [facility] HospitalAspartate aminotransferase [Enzymatic activity/volume] in Serum or PlasmaOrdered By: Kadie Bullimore on 71-97-4969CIZ [Catalytic activity/Vol]15 U/T47-84TrkmoiorfBrecksville Va / Crille HospitalBasophils Auto (Bld) [#/Vol]Ordered By: Kadie Bullimore on 85-48-3934Suystkcnu (Bld) [#/Vol]0.1 10*3/uL0.0-0.2FOhioHealth Hardin Memorial HospitalBasophils/100 WBC Auto (Bld)Ordered By: Kadie Bullimore on 04-48-0985Adbebvseo/100 WBC (Bld)0.3 %. [facility] HospitalBilirubin.total [Mass/volume] in Serum or PlasmaOrdered By: Kadie Bullimore on 34-10-5313Zcpqrmgqi [Mass/Vol]0.4 mg/dL 0.3-1.0[facility] HospitalCalcium [Mass/volume] in Serum or Plasma Ordered By: Kadie Bullimore on 50-42-8258Wvxzjwv [Mass/Vol]9.5 mg/dL8.6-10.3 [facility] HospitalCarbon dioxide, total [Moles/volume] in Serum or PlasmaOrdered By: Kadie Bullimore on 66-63-3189LS8 [Moles/Vol]34.6 mmol/L 21.0-31.0[facility] HospitalChloride [Moles/volume] in Serum or PlasmaOrdered By: Kadie Bullimore on 75-15-2510Eahybtxw [Moles/Vol]104 mmol/L 98-107[facility] HospitalCreatinine [Mass/volume] in Serum or PlasmaOrdered By: Kadie Bullimore on 21-92-4447Dqoyguomme [Mass/Vol]1.24 mg/dL 0.60-1.20[facility] HospitalEosinophils Auto (Bld) [#/Vol]Ordered By: [facility] Bullimore on 84-97-5392Ssfvjohjmfj (Bld) [#/Vol]0.0 10*3/uL0.0-0.45 [facility] HospitalEosinophils/100 WBC Auto (Bld)Ordered By: [facility] Bullimore on 35-45-7682Msidczeolqa/100 WBC (Bld)0.2 %.[facility] HospitalErythrocyte distribution width Auto (RBC) [Ratio]Ordered By: [facility] Bullimore on 76-08-9362Rcgsosogxsf distribution width (RBC) [Ratio]21.5 % 11.9-15.3FOhioHealth Hardin Memorial HospitalGlobulin Calc (S) [Mass/Vol]Ordered By: Kadie Bullimsheltering arms hospital on 34-47-6841Auexcahz (S) [Mass/Vol]2.9 g/dLBrecksville Va / Crille HospitalGlucose [Mass/volume] in Serum or PlasmaOrdered By: Kadie Bullimore on 56-16-9646Xgbspwn [Mass/Vol]103 mg/aN51-816LlouxsfuzBrecksville Va / Crille HospitalComment on above:ADA recommended reference rangeRandom Glucose Reference Range is dependent on time and content of last meal. Glucose of more than 200 mg/dL in a nonstressed, ambulatory subject supports the diagnosisof Diabetes Mellitus.Hematocrit Auto (Bld) [Volume fraction]Ordered By: Kadie Bullimore on 41-79-8388Dmrhcirzyb (Bld) [Volume fraction]34.6 %34.0-46.4 [facility] HospitalHemoglobin [Mass/volume] in BloodOrdered By: Kadie Bullimore on 20-00-0697Twuzrpxsnx (Bld) [Mass/Vol]10.9 g/dL11.8-15.4 [facility] HospitalLeukocytes [#/volume] corrected for nucleated erythrocytes in Blood by Automated counOrdered By: Kadie Bullimore on 80-98-1924HAG corrected for nucl RBC Auto (Bld) [#/Vol]17.4 10*3/uL3.8-11.6 [facility] HospitalLymphocytes Auto (Bld) [#/Vol]Ordered By: Kadie Bullimore on 89-57-1153Cjlfqmatsdi (Bld) [#/Vol]3.7 10*3/uL1.00-4.8 [facility] HospitalLymphocytes/100 WBC Auto (Bld)Ordered By: Kadie Bullimore on 26-77-3973Xrqvcyouapv/100 WBC (Bld)21.2 %.[facility] HospitalMCH Auto (RBC) [Entitic mass]Ordered By: Kadie Bullimore on 77-60-2334KUM (RBC) [Entitic mass]24.8 pg24.7-34.3FMercy Health Springfield Regional Medical CenterHC Auto (RBC) [Mass/Vol]Ordered By: Kadie Bullimore on 82-25-1486DFHY (RBC) [Mass/Vol]31.5 g/dL32.0-35.0[facility] HospitalMCV Auto (RBC) [Entitic vol]Ordered By: Kadie Bullimore on 73-13-1710RGD (RBC) [Entitic vol]78.7 cZ72-197QhdxwtfakBrecksville Va / Crille HospitalMonocyte distribution width [Entitic volume] in Blood by AutomatedOrdered By: Kadie Bullimore on 06-17-2023 Monocyte distribution width Auto (Bld) [Entitic vol]20.88 %0.00-20.00[facility] HospitalComment on above:For adults in ED, MDW > 20.0 may be associated with a higher risk of sepsis during the first 12 hrs of hospital admissionMonocytes Auto (Bld) [#/Vol]Ordered By: Kadie Bullimore on 06-17-2023 Monocytes (Bld) [#/Vol]1.1 10*3/uL0.0-0.8[facility] Monocytes/100 WBC Auto (Bld)Ordered By: Kadie Bullimore on 06-17-2023 Monocytes/100 WBC (Bld)6.6 %.[facility] HospitalNatriuretic peptide B [Mass/Vol]Ordered By: [facility] Bullimore on 06-04-6814Biazeptchol peptide B (Bld) [Mass/Vol]109.0 pg/mL5-100[facility] Neutrophils Auto (Bld) [#/Vol]Ordered By: Kadie Bullimore on 06-17-2023 Neutrophils (Bld) [#/Vol]12.4 10*3/uL1.8-7.7FOhioHealth Hardin Memorial Hospital Neutrophils/100 WBC Auto (Bld)Ordered By: Kadie Bullimore on 06-17-2023 Neutrophils/100 WBC (Bld)71.7 %.[facility] HospitalNo Panel InformationOrdered By: Kadieroxie Jones on 99-90-5093Wvlfbprmm GFR (CKD-EPI) 44.823 mL/MinBrecksville Va / Crille HospitalPharmacy Creatinine Clearance (Chem35.64[facility] HospitalNucleated erythrocytes [Presence] in Blood by Automated countOrdered By: Kadie Hungimore on 71-53-9212Kzaboffaf RBC Auto Ql (Bld)0.1 /100{WBC}0-0.5FOhioHealth Hardin Memorial HospitalPlatelet mean volume Auto (Bld) [Entitic vol]Ordered By: Kadie Bullimore on 06-17-2023 Platelet mean volume (Bld) [Entitic vol]7.4 fL6.3-10.7FOhioHealth Hardin Memorial HospitalPlatelets Auto (Bld) [#/Vol]Ordered By: Kadie Bullimore on 06-17-2023 Platelets (Bld) [#/Vol]257 10*3/cI591-139DpmqsnuzsBrecksville Va / Crille Hospital Potassium [Moles/volume] in Serum or PlasmaOrdered By: Kadie Bullimore on 79-28-6392Uybebxuse [Moles/Vol]3.7 mmol/L3.5-5.1FOhioHealth Hardin Memorial HospitalProtein [Mass/volume] in Serum or PlasmaOrdered By: Kadie Bullimore on 02-20-1909Furrcrt [Mass/Vol]6.3 g/dL6.4-8.9[facility] HospitalRBC Auto (Bld) [#/Vol]Ordered By: Kadie Bullimore on 21-65-7159FMS (Bld) [#/Vol] 4.39 10*6/uL3.60-5.00[facility] Hospitalerum or plasma albumin/globulin mass ratioOrdered By: Kadie Bullimore on 06-17-2023 Albumin/Globulin [Mass ratio]1.2 {ratio}[facility] Hospitalerum or plasma anion gap determinationOrdered By: Kadie Abhilashore on 97-96-0842Qjihq gap [Moles/Vol]8.1 mmol/L6.0-15.0[facility] Hospitalodium [Moles/volume] in Serum or PlasmaOrdered By: Kadie Bullimore on 06-17-2023 Sodium [Moles/Vol]143 mmol/J878-310AkxxhsbyvBrecksville Va / Crille HospitalTroponin I.cardiac [Mass/volume] in Serum or Plasma by Detection limit <= 0.01 ng/Ordered By: [facility] Bullimore on 75-23-1131Kxlswiiq I.cardiac DL <= 0.01 ng/mL [Mass/Vol]9.5 pg/mL0.0-15.0[facility] HospitalUrea nitrogen [Mass/volume] in Serum or PlasmaOrdered By: Kadie Bullimore on 74-79-7111Mmge nitrogen [Mass/Vol]25 mg/dL7-25[facility] HospitalWBC Auto (Bld) [#/Vol]Ordered By: Kadie Bullimore on 00-29-5154GFI (Bld) [#/Vol]17.4 10*3/uL 3.8-11.6FOhioHealth Hardin Memorial HospitalAnisocytosis LM Ql (Bld)Ordered By: Carla Hagan on 36-43-8363Zlmawuovmhzu Ql (Bld)ModerateBrecksville Va / Crille HospitalBasophils Auto (Bld) [#/Vol]Ordered By: Carla Hagan on 95-37-2416Wnokyngsm (Bld) [#/Vol]N/[facility] Basophils/100 WBC Auto (Bld)Ordered By: Carla Hagan on 03-58-6778Dsfkfrslh/100 WBC (Bld)N/[facility] HospitalBasophils/100 WBC Manual cnt (Bld) Ordered By: Carla Hagan on 92-50-8324Pvdylrlnq/100 WBC (Bld)1 %0-2FOhioHealth Hardin Memorial HospitalCalcium [Mass/volume] in Serum or PlasmaOrdered By: Carla Hagan on 12-93-3911Ynihaqs [Mass/Vol]8.6 mg/dL8.2-10.2FOhioHealth Hardin Memorial HospitalCarbon dioxide, total [Moles/volume] in Serum or PlasmaOrdered By: Carla Hagan on 70-30-5930JF2 [Moles/Vol]26.2 mmol/L22.0-30.0[facility] HospitalChloride [Moles/volume] in Serum or PlasmaOrdered By: Carla Hagan on 06-94-1869Xwbhpcxp [Moles/Vol]99 mmol/R75-393JhulcuctpBrecksville Va / Crille HospitalCreatinine and Glomerular filtration rate.predicted panel (S/P/Bld)Ordered By: Carla Hagan on 09-89-2367Vgdqifdmgp [Mass/Vol]0.99 mg/dL 0.44-1.03[facility] HospitalEosinophils Auto (Bld) [#/Vol]Ordered By: Carla Hagan on 29-00-0997Shriqtnjxpu (Bld) [#/Vol]N/[facility] HospitalEosinophils/100 WBC Auto (Bld)Ordered By: Carla Hagan on 55-01-3875Mivzdkucmty/100 WBC (Bld)N/[facility] Eosinophils/100 WBC Manual cnt (Bld)Ordered By: Carla Hagan on 12-31-2022 Eosinophils/100 WBC (Bld)1 %1-3FOhioHealth Hardin Memorial HospitalErythrocyte distribution width Auto (RBC) [Ratio]Ordered By: Carla Hagan on 12-31-2022 Erythrocyte distribution width (RBC) [Ratio]15.7 %11.9-15.3FOhioHealth Hardin Memorial HospitalEstimated glomerular filtration rate (GFR) non- Ordered By: Carla Hagan on 88-50-5924RIC/1.73 sq M.predicted among non-blacks MDRD (S/P/Bld) [Vol rate/Area]54 mL/MinBrecksville Va / Crille HospitalGiant platelets/100 leukocytes [Ratio] in Blood by Manual countOrdered By: Carla Hagan on 84-11-2728Aflyy platelets/100 WBC Manual cnt (Bld) [Ratio]1 /100{WBC} [facility] HospitalGlucose [Mass/volume] in Serum or PlasmaOrdered By: Carla Hagan on 05-18-7975Bjcsbde [Mass/Vol]115 mg/nI18-293FzmrjqhqbBrecksville Va / Crille HospitalComment on above:ADA recommended reference rangeRandom Glucose Reference Range is dependent on time and content of last meal. Glucose of more than 200 mg/dL in a nonstressed, ambulatory subject supports the diagnosisof Diabetes Mellitus.Helmet cell detectionOrdered By: Carla Hagan on 03-81-1346Ujspba cells LM Ql (Bld)[facility] Hematocrit Auto (Bld) [Volume fraction]Ordered By: Carla Hagan on 12-31-2022 Hematocrit (Bld) [Volume fraction]30.2 %34.0-46.4FOhioHealth Hardin Memorial HospitalHemoglobin [Mass/volume] in BloodOrdered By: Carla Hagan on 12-31-2022 Hemoglobin (Bld) [Mass/Vol]9.8 g/dL11.8-15.4FOhioHealth Hardin Memorial Hospital Hypochromia LM Ql (Bld)Ordered By: Carla Hagan on 29-82-2492Xjbitzpmojn Ql (Bld)[facility] HospitalLaboratory - Chemistry and Chemistry - challengeOrdered By: Carla Hagan on 74-20-3076Wwcwzqieg [Mass/Vol]1.5 mg/dL 1.6-2.6FOhioHealth Hardin Memorial HospitalLeukocytes [#/volume] corrected for nucleated erythrocytes in Blood by Automated counOrdered By: Carla Hagan on 83-02-6550KGD corrected for nucl RBC Auto (Bld) [#/Vol]13.4 10*3/uL3.8-11.6 [facility] HospitalLymphocytes Auto (Bld) [#/Vol]Ordered By: Carla Hagan on 94-86-7981Ecrclzbvkcb (Bld) [#/Vol]N/[facility] HospitalLymphocytes/100 WBC Auto (Bld)Ordered By: Carla Hagan on 12-31-2022 Lymphocytes/100 WBC (Bld)N/[facility] HospitalLymphocytes/100 WBC Manual cnt (Bld)Ordered By: Carla Hagan on 77-85-2792Pkppwaqrvvc/100 WBC (Bld)8 %18-42[facility] HospitalMCH Auto (RBC) [Entitic mass] Ordered By: Carla Hagan on 31-58-5469GNG (RBC) [Entitic mass]25.3 pg24.7-34.3 [facility] HospitalMCHC Auto (RBC) [Mass/Vol]Ordered By: Carla Hagan on 71-82-7378TGWF (RBC) [Mass/Vol]32.3 g/dL32.0-35.0[facility] HospitalMCV Auto (RBC) [Entitic vol]Ordered By: Carla Hagan on 50-41-6830SGN (RBC) [Entitic vol]78.2 nU82-872HodvgiksqBrecksville Va / Crille Hospital Microcytes LM Ql (Bld)Ordered By: Carla Hagan on 44-74-8649Inxitroxtd Ql (Bld) ModerateBrecksville Va / Crille HospitalMonocytes Auto (Bld) [#/Vol]Ordered By: Carla Hagan on 69-91-4011Lpenfhmvw (Bld) [#/Vol]N/[facility] HospitalMonocytes/100 WBC Auto (Bld)Ordered By: Carla Hagan on 12-31-2022 Monocytes/100 WBC (Bld)N/[facility] HospitalMonocytes/100 WBC Manual cnt (Bld)Ordered By: Carla Hagan on 61-51-7662Aaonbnvfm/100 WBC (Bld)5 %2-11[facility] HospitalNeutrophils Auto (Bld) [#/Vol]Ordered By: Carla Hagan on 04-84-1182Polhmdooxda (Bld) [#/Vol]N/[facility] HospitalNeutrophils/100 WBC Auto (Bld)Ordered By: Carla Hagan on 13-64-1938Tmrmzbfaief/100 WBC (Bld)N/[facility] HospitalNo Panel InformationOrdered By: Carla Hagan on 29-93-2925Mskeoelay GFR ()> 60 mL/MinBrecksville Va / Crille HospitalComment on above:GFR estimated reference range: According to KDOQI guidelines, <60 ml/min/1.73m2 is sufficient todiagnose a patient with chronic kidney disease.Pharmacy Creatinine Clearance (Chem45.60[facility] HospitalNucleated erythrocytes [Presence] in Blood by Automated countOrdered By: Carla Hagan on 12-31-2022 Nucleated RBC Auto Ql (Bld)N/[facility] HospitalPhosphate [Mass/volume] in Serum or PlasmaOrdered By: Carla Hagan on 31-14-6709Qzxmpqpef [Mass/Vol]3.5 mg/dL2.5-4.6FOhioHealth Hardin Memorial HospitalPlatelet adequacy [Presence] in Blood by Light microscopyOrdered By: Carla Hagan on 12-31-2022 Platelets LM Ql (Bld)NormalSelect Medical Cleveland Clinic Rehabilitation Hospital, Edwin ShawPlatelet mean volume Auto (Bld) [Entitic vol]Ordered By: Carla Hagan on 32-75-1051Lhzdfsmk mean volume (Bld) [Entitic vol]6.6 fL6.3-10.7FOhioHealth Hardin Memorial Hospital Platelet morphology finding [Identifier] in BloodOrdered By: Carla Hagan on 06-94-6851Rysbjgpn morphology finding Nom (Bld)NormalNoShelby Memorial HospitalPlatelets Auto (Bld) [#/Vol]Ordered By: Carla Hagan on 30-59-2803Dnajovyad (Bld) [#/Vol]447 10*3/mH937-518TayyngyjsBrecksville Va / Crille HospitalPoikilocytosis [Presence] in Blood by Light microscopyOrdered By: Carla Hagan on 46-83-6444Qygcjkhddxwrvg LM Ql (Bld)[facility] HospitalPolychromasia [Presence] in Blood by Light microscopyOrdered By: Carla Hagan on 79-18-6441Zvqoqruljdeft LM Ql (Bld)[facility] HospitalPotassium [Moles/volume] in Serum or PlasmaOrdered By: Carla Hagan on 66-01-1004Odfqitbrw [Moles/Vol]4.1 mmol/L3.5-5.1FOhioHealth Hardin Memorial HospitalRBC Auto (Bld) [#/Vol]Ordered By: Carla Hagan on 87-11-0583BEE (Bld) [#/Vol]3.86 10*6/uL3.60-5.00[facility] HospitalRB morphology Ordered By: Carla Hagan on 02-30-0886KVE morphology finding Nom (Bld)N/A [facility] Hospitalegmented neutrophils/100 WBC Manual cnt (Bld) Ordered By: Carla Hagan on 97-93-7159Ejkqnvngy neutrophils/100 WBC (Bld)86 % 50-70Mary[facility] Hospitalerum or plasma anion gap determination Ordered By: Carla Hagan on 46-26-3995Wvgsp gap [Moles/Vol]12.9 mmol/L6.0-15.0 [facility] Hospitalodium [Moles/volume] in Serum or PlasmaOrdered By: Carla Hagan on 49-06-2191Xztois [Moles/Vol]134 mmol/W224-704ZslrcifvlBrecksville Va / Crille HospitalUrea nitrogen [Mass/volume] in Serum or PlasmaOrdered By: Carla Hagan on 98-13-5151Efsr nitrogen [Mass/Vol]18 mg/dL9-23[facility] HospitalWBC Auto (Bld) [#/Vol]Ordered By: Carla Hagan on 28-95-8236MQN (Bld) [#/Vol]13.4 10*3/uL3.8-11.6FOhioHealth Hardin Memorial Hospital Creatine kinase [Enzymatic activity/volume] in Serum or PlasmaOrdered By: Carla Hagan on 23-88-8095CJ [Catalytic activity/Vol]108 U/L60-954GxcutolroBrecksville Va / Crille HospitalAutomated epithelial cells count in urine sediment (number/area) Ordered By: Maddy Morrissey on 88-71-0727Xgtiojshwz cells Auto (Urine sed) [#/Area] 3-4 [HPF]0-2FOhioHealth Hardin Memorial HospitalAutomated erythrocytes count in urine sediment (number/area)Ordered By: Maddy Morrissey on 39-74-1642NUN Auto (Urine sed) [#/Area]0-1 [HPF]0-4FOhioHealth Hardin Memorial HospitalAutomated leukocytes count in urine sediment (number/area)Ordered By: Maddy Morrissey on 57-03-5224QZJ Auto (Urine sed) [#/Area]5-9 [HPF]0-4FOhioHealth Hardin Memorial HospitalBilirubin Test strip Ql (U)Ordered By: Maddy Morrissey on 63-03-6669Miupgwfmt Ql (U)Negative NegativeBrecksville Va / Crille HospitalColor Auto (U)Ordered By: Maddy Morrissey on 11-46-0456Sjcpv (U)YellowYellowBrecksville Va / Crille HospitalFolate [Mass/volume] in Serum or PlasmaOrdered By: Eve Mann on 25-68-2696Nhahck [Mass/Vol]ng/mL>5.9[facility] HospitalComment on above:Folate reference range: >5.9 ng/mlThe WHO technical consultation on folate and vitamin f52fpugzmrvlzsk has determined that folate concentrations lessthan 4 ng/ml are considered deficient.Ketones Auto test strip (U) [Mass/Vol]Ordered By: Maddy Morrissey on 40-39-5552Wvkajwn (U) [Mass/Vol]NegativeNegativeBrecksville Va / Crille HospitalLaboratory - Chemistry and Chemistry - challengeOrdered By: Eve Mann on 76-54-7480Xlhdejvit (Vitamin B12) [Mass/Vol]994 pg/uB851-744 [facility] HospitalNitrite Test strip Ql (U)Ordered By: Maddy Morrissey on 65-32-4395Hbamdxf Ql (U)PositiveNegativeBrecksville Va / Crille HospitalProtein Auto test strip (U) [Mass/Vol]Ordered By: Maddy Morrissey on 12-05-8611Vzjebpv (U) [Mass/Vol]Trace mg/dLNegMemorial Hospitalpecific gravity Auto test strip (U) [Rel density]Ordered By: Maddy Morrissey on 49-34-1874Wdnchmok gravity (U) [Rel density]> 1.0501.001-1.030[facility] HospitalUrine bacteria detection by automated methodOrdered By: Maddy Morrissey on 65-34-3759Bomuffxc Auto Ql (U)2+None SeenBrecksville Va / Crille HospitalUrine clarity by refractometry automatedOrdered By: Maddy Morrissey on 18-79-7743Wenjblf Refractometry automated (U)CloudyClearFOhioHealth Hardin Memorial HospitalUrine culture routineOrdered By: Maddy Morrissey on 38-14-5199Ltowqoaj identified Cx Nom (U)Escherichia coliBrecksville Va / Crille HospitalUrine glucose measurement by automated test strip (mass/volume)Ordered By: Maddy Morrissey on 01-03-4024Vvgvvon Auto test strip (U) [Mass/Vol]Normal mg/dLNoShelby Memorial HospitalUrine hemoglobin detection by automated test stripOrdered By: Maddy Morrissey on 65-70-3258Bxljbyfxiy Auto test strip Ql (U)TraceNegKnox Community HospitalUrine leukocyte esterase detection by automated test stripOrdered By: Maddy Morrissey on 41-03-3889Vvfatveaf esterase Auto test strip Ql (U)3+NegativeBrecksville Va / Crille HospitalUrobilinogen Auto test strip (U) [Mass/Vol]Ordered By: Maddy Morrissey on 82-91-2401Soroxfcvzgbe (U) [Mass/Vol]Normal mg/dLNormMercy Health St. Vincent Medical CenterpH Auto test strip (U)Ordered By: Maddy Morrissey on 37-15-1164kA (U)5.0 [pH]5.0-9.0[facility] HospitalActivated partial thromboplastin time (aPTT) in platelet poor plasma by coagulation aOrdered By: Maddy Morrissey on 25-17-7950sHMU Coag (PPP) [Time]30.8 s25.1-36.5FOhioHealth Hardin Memorial HospitalBasophils Auto (Bld) [#/Vol]Ordered By: Maddy Morrissey on 48-63-7295Hzwnplbbq (Bld) [#/Vol]0.1 10*3/uL 0.0-0.2FOhioHealth Hardin Memorial HospitalBasophils/100 WBC Auto (Bld)Ordered By: Maddy Morrissey on 72-43-3422Ncjscjafh/100 WBC (Bld)0.5 %.[facility] HospitalCalcium [Mass/volume] in Serum or PlasmaOrdered By: Maddy Morrissey on 53-10-3543Wfvuoiw [Mass/Vol]9.0 mg/dL8.2-10.2FOhioHealth Hardin Memorial Hospital Carbon dioxide, total [Moles/volume] in Serum or PlasmaOrdered By: Maddy Morrissey on 46-56-2073TO8 [Moles/Vol]25.8 mmol/L22.0-30.0[facility] HospitalChloride [Moles/volume] in Serum or PlasmaOrdered By: Maddy Morrissey on 16-55-4355Llcphocr [Moles/Vol]104 mmol/S33-600YffcmldsfBrecksville Va / Crille Hospital Creatinine and Glomerular filtration rate.predicted panel (S/P/Bld)Ordered By: Maddy Morrissey on 68-81-9954Hxdozzobcz [Mass/Vol]1.22 mg/dL0.44-1.03[facility] HospitalEosinophils Auto (Bld) [#/Vol]Ordered By: Maddy Morrissey on 85-94-7525Gzvxlqoahiv (Bld) [#/Vol]0.1 10*3/uL0.0-0.45[facility] HospitalEosinophils/100 WBC Auto (Bld)Ordered By: Maddy Morrissey on 12-26-2022 Eosinophils/100 WBC (Bld)1.1 %.[facility] HospitalErythrocyte distribution width Auto (RBC) [Ratio]Ordered By: Maddy Morrissey on 12-26-2022 Erythrocyte distribution width (RBC) [Ratio]15.9 %11.9-15.3FOhioHealth Hardin Memorial HospitalEstimated glomerular filtration rate (GFR) non- Ordered By: Maddy Morrissey on 37-62-6771QAO/1.73 sq M.predicted among non-blacks MDRD (S/P/Bld) [Vol rate/Area]43 mL/MinBrecksville Va / Crille HospitalGlucose [Mass/volume] in Serum or PlasmaOrdered By: Maddy Morrissey on [id number] [Mass/Vol]128 mg/tQ83-948WelocswhnBrecksville Va / Crille HospitalComment on above:ADA recommended reference rangeRandom Glucose Reference Range is dependent on time and content of last meal. Glucose of more than 200 mg/dL in a nonstressed, ambulatory subject supports the diagnosisof Diabetes Mellitus.Hematocrit Auto (Bld) [Volume fraction]Ordered By: Maddy Morrissey on [id number] (Bld) [Volume fraction]29.7 %34.0-46.4FOhioHealth Hardin Memorial HospitalHemoglobin [Mass/volume] in BloodOrdered By: Maddy Morrissey on 94-22-9457Jrymbfvmpg (Bld) [Mass/Vol]9.3 g/dL11.8-15.4FOhioHealth Hardin Memorial HospitalLaboratory - Chemistry and Chemistry - challengeOrdered By: Maddy Morrissey on 12-26-2022 Natriuretic peptide B (Bld) [Mass/Vol]49.0 pg/mL5-100[facility] HospitalLaboratory - CoagulationOrdered By: Maddy Morrissey on 29-28-3558QT Coag (PPP) [Time]14.5 s9.0-12.9[facility] HospitalLeukocytes [#/volume] corrected for nucleated erythrocytes in Blood by Automated counOrdered By: Maddy Morrissey on 08-63-4954EPM corrected for nucl RBC Auto (Bld) [#/Vol]12.0 10*3/uL 3.8-11.6FOhioHealth Hardin Memorial HospitalLymphocytes Auto (Bld) [#/Vol]Ordered By: Maddy Morrissey on 33-87-0485Pfnxdngvjui (Bld) [#/Vol]3.0 10*3/uL1.00-4.8 [facility] HospitalLymphocytes/100 WBC Auto (Bld)Ordered By: Maddy Morrissey on 40-28-4169Kgafyttasvf/100 WBC (Bld)24.8 %.[facility] HospitalH Auto (RBC) [Entitic mass]Ordered By: Maddy Morrissey on 87-82-2669AQD (RBC) [Entitic mass]24.8 pg24.7-34.3FOhioHealth Hardin Memorial HospitalMCHC Auto (RBC) [Mass/Vol]Ordered By: Maddy Morrissey on 28-77-1592VBJK (RBC) [Mass/Vol]31.2 g/dL32.0-35.0[facility] HospitalMCV Auto (RBC) [Entitic vol] Ordered By: Maddy Morrissey on 86-83-4265TYV (RBC) [Entitic vol]79.4 uY93-946 [facility] HospitalMonocyte distribution width [Entitic volume] in Blood by AutomatedOrdered By: Maddy Morrissey on 59-12-1346Kbffevwo distribution width Auto (Bld) [Entitic vol]20.22 %0.00-20.00[facility] Comment on above:For adults in ED, MDW > 20.0 may be associated with a higher risk of sepsis during the first 12 hrs of hospital admissionMonocytes Auto (Bld) [#/Vol]Ordered By: Maddy Morrissey on 91-36-7961Yllbuguuu (Bld) [#/Vol]1.2 10*3/uL 0.0-0.8[facility] HospitalMonocytes/100 WBC Auto (Bld)Ordered By: Maddy Morrissey on 51-84-2570Xurlxotez/100 WBC (Bld)10.1 %.[facility] HospitalNeutrophils Auto (Bld) [#/Vol]Ordered By: Maddy Morrissey on 73-10-7504Kyucrzjxumq (Bld) [#/Vol]7.6 10*3/uL1.8-7.7FOhioHealth Hardin Memorial HospitalNeutrophils/100 WBC Auto (Bld)Ordered By: Maddy Morrissey on 12-26-2022 Neutrophils/100 WBC (Bld)63.5 %.[facility] HospitalNo Panel InformationOrdered By: Maddy Morrissey on 05-60-1368Scitdsggf GFR () 52 mL/MinBrecksville Va / Crille HospitalComment on above:GFR estimated reference range: According to KDOQI guidelines, <60 ml/min/1.73m2 is sufficient todiagnose a patient with chronic kidney disease.Pharmacy Creatinine Clearance (Chem37.20[facility] HospitalNucleated erythrocytes [Presence] in Blood by Automated countOrdered By: Maddy Morrissey on 46-71-3818Lobzjnvlq RBC Auto Ql (Bld)0.1 /100{WBC}0-0.5FOhioHealth Hardin Memorial HospitalPlatelet mean volume Auto (Bld) [Entitic vol]Ordered By: Maddy Morrissey on 40-87-8475Lbkvdfdk mean volume (Bld) [Entitic vol]6.5 fL6.3-10.7FOhioHealth Hardin Memorial Hospital Platelet poor plasma international normalized ratio (INR) by coagulation assay (relatOrdered By: Maddy Morrissey on 07-48-6017CWV Coag (PPP) [Relative time]1.3 {INR}[facility] HospitalComment on above:INR Therapeutic Range A) Pre- and Peroperative OAT started two weeks before surgery. NOT HIP SURGERY: 1.5 - 2.5 HIP SURGERY: 2 - 3B) Primary and secondary prevention of venous THROMBOSIS: 2 - 3C) Active venous thrombosis, pulmonary embolismand prevention of recurrent venous thrombosis: 2 - 3D) Prevention of arterial thromboembolismincluding patients with mechanical heart valves: 3 - 4.5Platelets Auto (Bld) [#/Vol]Ordered By: Maddy Morrissey on 85-42-3859Wvvmatjfl (Bld) [#/Vol] 450 10*3/pP221-531JlgihlcwvBrecksville Va / Crille HospitalPotassium [Moles/volume] in Serum or PlasmaOrdered By: Maddy Morrissey on 15-36-0730Rddpxxidp [Moles/Vol]3.9 mmol/L3.5-5.1FOhioHealth Hardin Memorial HospitalRBC Auto (Bld) [#/Vol]Ordered By: Maddy Morrissey on 29-84-1196FWZ (Bld) [#/Vol]3.74 10*6/uL3.60-5.00Marymount Hospitalerum or plasma anion gap determinationOrdered By: Maddy Morrissey on 20-91-4626Dxgjt gap [Moles/Vol]10.1 mmol/L6.0-15.0Marymount Hospitalodium [Moles/volume] in Serum or PlasmaOrdered By: Maddy Morrissey on 51-71-6740Gknrxz [Moles/Vol]136 mmol/T974-055YokmlinikBrecksville Va / Crille Hospital Troponin I.cardiac [Mass/volume] in Serum or Plasma by High sensitivity method Ordered By: Maddy Morrissey on 51-15-0660Dteyhpjd I.cardiac High sensitivity method [Mass/Vol]6 pg/mL0-15[facility] HospitalUrea nitrogen [Mass/volume] in Serum or PlasmaOrdered By: Maddy Morrissey on 26-89-7539Ykgn nitrogen [Mass/Vol]21 mg/dL9-23[facility] HospitalWBC Auto (Bld) [#/Vol]Ordered By: Maddy Morrissey on 64-46-5349OJH (Bld) [#/Vol]12.0 10*3/uL 3.8-11.6FOhioHealth Hardin Memorial HospitalBasophils Auto (Bld) [#/Vol]Ordered By: Hilario Yeung on 94-41-1450Wbkemhzds (Bld) [#/Vol]0.0 10*3/uL0.0-0.2 [facility] HospitalBasophils/100 WBC Auto (Bld)Ordered By: Hilario Yeung on 88-13-3790Uzrjlhkoz/100 WBC (Bld)0.7 %.[facility] HospitalBlood hemoglobin measurement (mass/volume)Ordered By: Hilario Yeung on 49-54-4633Ztdhrevrxt (Bld) [Mass/Vol]11.6 g/dL11.8-15.4FOhioHealth Hardin Memorial HospitalBlood leukocytes automated count (number/volume)Ordered By: Hilario Yeung on 03-37-7139KWI (Bld) [#/Vol]5.9 10*3/uL4.5-11.0[facility] HospitalCreatinine and Glomerular filtration rate.predicted panel (S/P/Bld)Ordered By: Hilario Yeung on 66-86-4113Cjsjvfufwp [Mass/Vol]1.22 mg/dL0.44-1.03[facility] HospitalEosinophils Auto (Bld) [#/Vol] Ordered By: Hilario Yeung on 01-37-7586Wbvkttoutmh (Bld) [#/Vol]0.3 10*3/uL 0.0-0.45[facility] HospitalEosinophils/100 WBC Auto (Bld)Ordered By: Hilario Yeung on 32-51-4491Vfmgfmdoztf/100 WBC (Bld)4.4 %.[facility] HospitalErythrocyte distribution width Auto (RBC) [Ratio]Ordered By: Hilario Yeung on 47-75-3089Whmisfxiztm distribution width (RBC) [Ratio] 16.9 %11.9-15.3FOhioHealth Hardin Memorial HospitalEstimated glomerular filtration rate (GFR) non- AmericanOrdered By: Hilario Yeung on 05-31-2022 GFR/1.73 sq M.predicted among non-blacks MDRD (S/P/Bld) [Vol rate/Area]43 mL/Min [facility] HospitalHematocrit Auto (Bld) [Volume fraction]Ordered By: Hilario Yeung on 54-39-5402Eazhggtkjr (Bld) [Volume fraction]36.6 % 34.0-46.4FOhioHealth Hardin Memorial HospitalLaboratory - Hematology and Cell countsOrdered By: Hilario Yeung on 87-55-8204Viyqglhrj RBC/100 WBC (Bld) [Ratio]0.1 %0-0.5FOhioHealth Hardin Memorial HospitalLymphocytes Auto (Bld) [#/Vol] Ordered By: Hilario Yeung on 85-62-0389Jkslnyomqok (Bld) [#/Vol]2.4 10*3/uL 1.00-4.8[facility] HospitalLymphocytes/100 WBC Auto (Bld)Ordered By: Hilario Yeung on 39-39-9792Xfeuvqcozue/100 WBC (Bld)41.3 %.[facility] HospitalMCH Auto (RBC) [Entitic mass]Ordered By: Hilario Yeung on 46-53-9893NYT (RBC) [Entitic mass]25.8 pg24.7-34.3FOhioHealth Hardin Memorial HospitalMCHC Auto (RBC) [Mass/Vol]Ordered By: Hilario Yeung on 89-07-8902TQME (RBC) [Mass/Vol]31.7 g/dL32.0-35.0[facility] HospitalMCV Auto (RBC) [Entitic vol]Ordered By: Hilario Yeung on 02-86-9262RSE (RBC) [Entitic vol]81.4 aG81-551UvdhiyxjlBrecksville Va / Crille HospitalMonocytes Auto (Bld) [#/Vol] Ordered By: Hilario Yeung on 49-83-7986Erwkzujtr (Bld) [#/Vol]0.6 10*3/uL 0.0-0.8[facility] HospitalMonocytes/100 WBC Auto (Bld)Ordered By: Hilario Yeung on 90-23-1066Nfybipbpy/100 WBC (Bld)10.6 %.[facility] HospitalNeutrophils Auto (Bld) [#/Vol]Ordered By: Hilario Yeung on 47-50-1357Prtsqnniavr (Bld) [#/Vol]2.5 10*3/uL1.8-7.7FOhioHealth Hardin Memorial HospitalNeutrophils/100 WBC Auto (Bld)Ordered By: Hilario Yeung on 05-31-2022 Neutrophils/100 WBC (Bld)43.0 %.[facility] HospitalNo Panel InformationOrdered By: Hilario Yeung on 50-22-6736Jhtxaxrro GFR ()52 mL/MinBrecksville Va / Crille HospitalComment on above:GFR estimated reference range: According to KDOQI guidelines, <60 ml/min/1.73m2 is sufficient todiagnose a patient with chronic kidney disease.Pharmacy Creatinine Clearance (Chem39.11[facility] HospitalPlatelet mean volume Auto (Bld) [Entitic vol]Ordered By: Hilario Yeung on 37-02-8196Khbvnwpt mean volume (Bld) [Entitic vol]7.5 fL6.3-10.7FOhioHealth Hardin Memorial Hospital Platelets Auto (Bld) [#/Vol]Ordered By: Hilario Yeung on 60-28-1097Rwtnsorwt (Bld) [#/Vol]209 10*3/rL194-660XoomlwjsgBrecksville Va / Crille HospitalRBC Auto (Bld) [#/Vol]Ordered By: Hilario Yeung on 88-93-3808HTY (Bld) [#/Vol]4.50 10*6/uL 3.60-5.00Marymount Hospitalerum or plasma calcium measurement (mass/volume)Ordered By: Hilario Yeung on 12-30-2146Klmyxdq [Mass/Vol]9.1 mg/dL8.2-10.2FUniversity Hospitals TriPoint Medical Centererum or plasma chloride measurement (moles/volume)Ordered By: Hilario Yeung on 88-16-8821Mxiafpox [Moles/Vol]100 mmol/Z51-139RwkcwuhveMarymount Hospitalerum or plasma glucose measurement (mass/volume)Ordered By: Hilario Yeung on 05-31-2022 Glucose [Mass/Vol]99 mg/uD03-485YymqnthusBrecksville Va / Crille HospitalComment on above:ADA recommended reference range Random Glucose Reference Range is dependent on time and content of last meal. Glucose of more than 200 mg/dL in a nonstressed, ambulatory subject supports the diagnosis of Diabetes Mellitus.Serum or plasma potassium measurement (moles/volume)Ordered By: Hilario Yeung on 40-34-8577Stphaafmh [Moles/Vol]4.2 mmol/L3.5-5.1FUniversity Hospitals TriPoint Medical Centererum or plasma sodium measurement (moles/volume)Ordered By: Hilario Yeung on 61-76-5412Evushk [Moles/Vol]138 mmol/D019-625HwzgplydeMarymount Hospitalerum or plasma total carbon dioxide measurement (moles/volume)Ordered By: Hilario Yeung on 79-63-1302MW9 [Moles/Vol]29.7 mmol/L22.0-30.0[facility] Serum or plasma urea nitrogen measurement (mass/volume)Ordered By: Hilario Yeung on 59-39-5912Jxqv nitrogen [Mass/Vol]13 mg/dL9-23Marymount HospitalCREENING MAMMOGRAM W/LELAND, BILATERAL*on 38-89-1078RJMLEAUNC MAMMOGRAM W/LELAND, BILATERAL*CLINICAL HISTORY: Screening Mammogram COMPARISON: Priors dating back [...] VERY IMPORTANT TO YOUR HEALTH. THE CURRENT [place] [employer] AND [employer]PREHENSIVE [employer]WORK GUIDELINES RECOMMENDS ANNUAL MAMMOGRAPHY BEGINNING AT AGE 40 THIS FACILITY USES A REMINDER SYSTEM TO ENSURE ALL PATIENTS RECEIVE REMINDER NOTIFICATIONS AT THE APPROPRIATE TIME BASED ON THE RECOMMENDATIONS OF THIS EXAM. Board Certified Radiologist. Accredited by the ACR and FDA. Report reported and signed by Edgar Hooper on 05/01/2022 0957[facility] Low Dose Lung Screeningon 72-97-1883MD Low Dose Lung ScreeningHISTORY: Smoking history. Asthma. COPD. COMPARISON: CT chest [...] and signed by Devonte Gomez on 04/27/[address] Elizabeth Young[facility] HospitalXR Hip Complete Left*on 33-22-4411DI Hip Complete Left* CLINICAL HISTORY: Left hip [...] and signed by Wicho Bowman on 03/14/[address] Elizabeth Youngstown HospitalXR Spine Lumbar 4+ Views*on 11-85-1715GW Spine Lumbar 4+ Views*CLINICAL HISTORY: Low back and left hip pain. [...] and signed by Wicho Bowman on 03/14/[address] Elizabeth Youngstown HospitalCNPTOUTREACHon 48-10-3785QGORVSJCVACJAormdgt Outreach (COVAMN) GERA PERDUE ([id number]) 1945 F Date Time Provider Department 12/20/20 DERICK LOPEZ During your visit today, we recorded the following information about you: Allergies As of Date: 12/20/2020 Noted Allergy Reaction ASPRIN (ASPIRIN) 03/02/2019 1 - Mental Status Change Date Reviewed: 05/04/2020 Reviewed by: Prasad Phillips - Fully Assessed Order(s):SARS-COVID VACCINE 1ST DOSE APPT [[id number]] Order #: [id number] FUTURE Prescriptions as of 12/20/2020 Sig: HYDROCODONE [...] [E66.9] 02/25/2015 Letter Text Encounter Status:Closed by [employer]SARINA on 12/23/20[facility] [id number] ID: [id number] Author: Prasad Phillips Service: ? Author Type: Physician Type: Progress Notes Filed: 05/04/2020 8:19 PM Note Text: Gera Perdue : 1945 Longterm: [facility] PCP: guanako Date last seen: 04/2020 PAST [...] onychomycosis of toenail of right foot Prasad Phillips, DPMNormalUniversity Hospitals Elyria Medical Center Auto Differentialon 81-32-1179Klytaqcap (Bld) [#/Vol]0.03 10*3/[facility], KYBasophils/100 WBC (Bld)0 %0 - 2 %[facility], KYDifferential TypeNOT REPORTEDProMedica [facility], KYEosinophils (Bld) [#/Vol]0.14 10*3/[facility], [place] Eosinophils/100 WBC (Bld)2 %1 - 4 %[facility], KYErythrocyte distribution width (RBC) [Ratio]15.0 %High11.8 - 14.4 %[facility], KYHematocrit (Bld) [Volume fraction]32.7 %Low36.3 - 47.1 %[facility], KYHemoglobin (Bld) [Mass/Vol]9.9 g/dLLow11.9 - 15.1 g/dLProMedica Flower Hospital, KYImmature granulocytes (Bld) [#/Vol]0.03 10*3/[facility] [place], KYImmature granulocytes (Bld) [#/Vol] 0 %0[facility], KYInterpretation and review of laboratory resultsAbnormal [facility], KYLymphocytes (Bld) [#/Vol]1.67 10*3/uLProMedica Flower Hospital, [place] Lymphocytes/100 WBC (Bld)22 %Low24 - 43 %[facility]uder HospitalH (RBC) [Entitic mass]27.7 pg25.2 - 33.5 pgMagruder HospitalHC (RBC) [Mass/Vol]30.3 g/dL28.4 - 34.8 g/dLNav[place], KYMCV (RBC) [Entitic vol]91.3 fL82.6 - 102.9 fL [place], KYMonocytes (Bld) [#/Vol]1.00 10*3/[place], [place] Monocytes/100 WBC (Bld)13 %High3 - 12 %[place], KYPlatelet mean volume (Bld) [Entitic vol]9.1 fL8.1 - 13.5 fLNav[place], KYPlatelets (Bld) [#/Vol]184 10*3/uLNav[place], KYPlatelets (Bld) [#/Vol]NOT REPORTEDSelect Medical Specialty [facility] (Bld) [#/Vol]3.58 10*6/uLLow3.95 - 5.11 m/[place], KYRB morphology finding Nom (Bld)ANISOCYTOSIS PRESENTNavajo, [place] Segmented neutrophils/100 WBC (Bld)63 %36 - 65 %[place], KYSegs Absolute4.63[place], KYWBC (Bld) [#/Vol]7.5 10*3/uLNav[place], [place] WBC (Bld) [#/Vol]0.0 10*3/uL0.0 per 100 WBCNavajo, KYWBC MorphologyNOT REPORTEDAvita Health System [facility] with Diffon [id number]. Basophil0.03 k/uL Normal0.00-0.20[facility] CenterComment on above:Performed By: #### CDP #### [address] [place] [address] Home Care Giver: Travis Díaz.Imm.Granulocyte0.03 k/uLNormal0.00-0.30[facility] CenterComment on above:Performed By: #### CDP #### [place] [address] Home Care Giver: Travis Díaz.Neutrophil (Seg)4.63 k/uLNormal1.50-8.10 [facility] CenterComment on above:Performed By: #### CDP #### [place] [address] Home Care Giver: Juan Perera MDBasophils/100 WBC (Bld)0 %Normal0-2MSilver Lake Medical Center, Ingleside CampusComment on above:Performed By: #### CDP #### [place] [address] Home Care Giver: Juan Perera MDEosinophils (Bld) [#/Vol]0.14 10*3/uLNormal 0.00-0.44[facility] Medical CenterComment on above:Performed By: #### CDP #### [place] [address] Home Care Giver: Juan Perera MDEosinophils/100 WBC (Bld)2 %Normal1-4[facility] CenterComment on above:Performed By: #### CDP #### [place] [address] Home Care Giver: Juan Perera MDErythrocyte distribution width (RBC) [Ratio]15.0 %High11.8-14.4[facility] CenterComment on above:Performed By: #### CDP #### [place] [address] Home Care Giver: Juan Perera MDHematocrit (Bld) [Volume fraction]32.7 %Low 36.3-47.1MSilver Lake Medical Center, Ingleside CampusComment on above:Performed By: #### CDP #### [address] [address] Home Care Giver: Juan Perera MDHemoglobin (Bld) [Mass/Vol]9.9 g/dLLow11.9-15.1 [facility] CenterComment on above:Performed By: #### CDP #### [address] [address] Home Care Giver: Juan Perera MDImmature granulocytes (Bld) [#/Vol]0 %Normal0 [facility] CenterComment on above:Performed By: #### CDP #### [address] [address] Home Care Giver: Juan Perera MDLymphocytes (Bld) [#/Vol]1.67 10*3/uLNormal 1.10-3.70[facility] CenterComment on above:Performed By: #### CDP #### [address] [address] Home Care Giver: Inessa Díazhocytes/100 WBC (Bld)22 %Zrk53-03PvgmvMain Campus Medical CenterComment on above:Performed By: #### CDP #### [address] [address] Home Care Giver: KIA DíazCH (RBC) [Entitic mass]27.7 zmWbkcxf87.2-33.5 [facility] CenterComment on above:Performed By: #### CDP #### [address] [address] Home Care Giver: KIA DíazCHC (RBC) [Mass/Vol]30.3 g/bLVqplwg73.4-34.8 [facility] CenterComment on above:Performed By: #### CDP #### [address] [address] Home Care Giver: KIA DíazCV (RBC) [Entitic vol]91.3 lYXcepab93.6-102.9 [facility] CenterComment on above:Performed By: #### CDP #### [address] [address] Home Care Giver: KIA Díazonocytes (Bld) [#/Vol]1.00 10*3/uLNormal 0.10-1.20[facility] CenterComment on above:Performed By: #### CDP #### [address] [address] Home Care Giver: KIA Díazonocytes/100 WBC (Bld)13 %High3-12[facility] CenterComment on above:Performed By: #### CDP #### [address] [address] Home Care Giver: Juan Perera MDNeutrophil (Seg)63 %Yehckf60-74GbvbuMain Campus Medical CenterComment on above:Performed By: #### CDP #### [address] [address] Home Care Giver: Juan Perera MDNRBC Automated0.0 per 100 WBCNormal0.0[facility] CenterComment on above:Performed By: #### CDP #### [address] [address] Home Care Giver: FAHAD Díazlatelet mean volume (Bld) [Entitic vol]9.1 fL Normal8.1-13.5[facility] CenterComment on above:Performed By: #### CDP #### [address] [address] Home Care Giver: Juan Madoff, MDPlatelets (Bld) [#/Vol]184 10*3/kJZaekpg812-035 [facility] CenterComment on above:Performed By: #### CDP #### [address] [address] Home Care Giver: EUGENIA DíazBC (Bld) [#/Vol]3.58 10*6/uLLow3.95-5.11[facility] CenterComment on above:Performed By: #### CDP #### [facility] [address] [place] [address] Home Care Giver: SEEMA Díaz morphology finding Nom (Bld)ANISOCYTOSIS PRESENTNoMercy Health St. Charles HospitalComment on above:Performed By: #### CDP #### [address] [address] Home Care Giver: SCOTTIE Díaz (Bld) [#/Vol]7.5 10*3/uLNormal3.5-11.3Mwestern reserve hospitaly [facility] Medical CenterComment on above:Performed By: #### CDP #### [address] [address] Home Care Giver: Marisol Díaz PerformedNOT REPORTEDNormToledo HospitalComment on above:Performed By: #### CDP #### [facility] [address] [place] [address] Home Care Giver: Rah Díazteanthony (Bld) [#/Vol]NOT REPORTEDNormToledo HospitalComment on above:Performed By: #### CDP #### [address] [address] Home Care Giver: SCOTTIE Díaz MorphologyNOT REPORTEDWayne HealthCare Main CampusComment on above:Performed By: #### CDP #### [facility] [address] [place] [address] Home Care Giver: Juan Perera [facility] Auto Differentialon [id number] (Bld) [#/Vol]0.04 10*3/[facility]- [place], KYBasophils/100 WBC (Bld)1 %0 - 2 % [facility]- [place], KYDifferential TypeNOT REPORTEDMccullough-[facility]- [place], KYEosinophils (Bld) [#/Vol]0.19 10*3/[facility]- [place], KYEosinophils/100 WBC (Bld)2 %1 - 4 %[facility]- [place], KYErythrocyte distribution width (RBC) [Ratio]15.5 %High11.8 - 14.4 %[facility]- [place], KYHematocrit (Bld) [Volume fraction]37.6 %36.3 - 47.1 %[facility]- [place], KYHemoglobin (Bld) [Mass/Vol]11.4 g/dLLow11.9 - 15.1 g/dL [facility]- [place], KYImmature granulocytes (Bld) [#/Vol]10*3/[facility]- [place], KYImmature granulocytes (Bld) [#/Vol]0 %0[facility]- [place], KYInterpretation and review of laboratory resultsAbnormalMccullough-[facility]- [place], KYLymphocytes (Bld) [#/Vol]1.70 10*3/[facility]- [place], KYLymphocytes/100 WBC (Bld)22 %Low24 - 43 % [facility]- [place], KYMCH (RBC) [Entitic mass]27.8 pg25.2 - 33.5 pgMccullough-Hyde Memorial Hospital- [place], KYMCHC (RBC) [Mass/Vol]30.3 g/dL28.4 - 34.8 g/dLMccullough-Hyde [facility] Hospital- [place], KYMCV (RBC) [Entitic vol]91.7 fL82.6 - 102.9 fLMccullough-Hyde Memorial Hospital- [place], KYMonocytes (Bld) [#/Vol]0.92 10*3/uLOhiohealth Nelsonville Health Center Health- [place], KYMonocytes/100 WBC (Bld)12 %3 - 12 %[facility], PATRICEPlatelet mean volume (Bld) [Entitic vol]9.4 fL8.1 - 13.5 fLProMedica Flower Hospital, PATRICEPlatelets (Bld) [#/Vol]NOT REPORTEDPro[facility]ica [facility], PATRICEPlatelets (Bld) [#/Vol]199 10*3/uLProMedica [facility], WARBC (Bld) [#/Vol]4.10 10*6/uL3.95 - 5.11 m/uLProMedica F[facility] Hospital, WARBC morphology finding Nom (Bld)ANISOCYTOSIS PRESENTProMedica F[facility] Hospital, WASegmented neutrophils/100 WBC (Bld)63 %36 - 65 %[facility], PATRICESegs Absolute4.97[facility], KYWBC (Bld) [#/Vol]0.0 10*3/uL 0.0 per 100 WBCNav[place], KYWBC (Bld) [#/Vol]7.8 10*3/uLProMedica Flower Hospital, KYWBC MorphologyNOT REPORTEDProMedica [facility], WACBC with Diffon [id number]. Basophil0.04 k/uLNormal0.00-0.20[facility] CenterComment on above:Performed By: #### CDP, CP #### [address] [address] Home Care Giver: Travis Díaz.Imm.Granulocyte<0.28Yeghhe4.00-0.30[facility] CenterComment on above:Performed By: #### CDP, CP #### [facility] [address] [place] [address] Home Care Giver: Travis Díaz.Neutrophil (Seg)4.97 k/uLNormal1.50-8.10 [facility] CenterComment on above:Performed By: #### CDP, CP #### [facility] [address] [place] [address] Home Care Giver: Juan Perera MDBasophils/100 WBC (Bld)1 %Normal0-2MercFresno Heart & Surgical HospitalComment on above:Performed By: #### CDP, CP #### [address] [address] Home Care Giver: RAFA Díazosinophils (Bld) [#/Vol]0.19 10*3/uLNormal 0.00-0.44[facility] CenterComment on above:Performed By: #### CDP, CP #### [address] [address] Home Care Giver: RAFA Díazosinophils/100 WBC (Bld)2 %Normal1-4[facility] CenterComment on above:Performed By: #### CDP, CP #### [place] [address] Home Care Giver: Juan Perera MDErythrocyte distribution width (RBC) [Ratio]15.5 %High11.8-14.4[facility] CenterComment on above:Performed By: #### CDP, CP #### [place] [address] Home Care Giver: Juan Perera MDHematocrit (Bld) [Volume fraction]37.6 %Normal 36.3-47.1MSilver Lake Medical Center, Ingleside CampusComment on above:Performed By: #### CDP, CP #### [place] [address] Home Care Giver: Juan Perera MDHemoglobin (Bld) [Mass/Vol]11.4 g/dLLow11.9-15.1 [facility] CenterComment on above:Performed By: #### CDP, CP #### [address] [address] Home Care Giver: Juan Perera MDImmature granulocytes (Bld) [#/Vol]0 %Normal0 [facility] CenterComment on above:Performed By: #### CDP, CP #### [address] [address] Home Care Giver: Blake Díazmphocytes (Bld) [#/Vol]1.70 10*3/uLNormal 1.10-3.70[facility] CenterComment on above:Performed By: #### CDP, CP #### [place] [address] Home Care Giver: Blake Díazmphocytes/100 WBC (Bld)22 %Geo96-94RnoooMain Campus Medical CenterComment on above:Performed By: #### CDP, CP #### [place] [address] Home Care Giver: KIA DíazCH (RBC) [Entitic mass]27.8 cpOddpnp86.2-33.5 [facility] CenterComment on above:Performed By: #### CDP, CP #### [place] [address] Home Care Giver: KIA DíazCHC (RBC) [Mass/Vol]30.3 g/gDXwmvev88.4-34.8 [facility] CenterComment on above:Performed By: #### CDP, CP #### [place] [address] Home Care Giver: KIA DíazCV (RBC) [Entitic vol]91.7 cGJjeyew85.6-102.9 [facility] CenterComment on above:Performed By: #### CDP, CP #### [place] [address] Home Care Giver: KIA Díazonocytes (Bld) [#/Vol]0.92 10*3/uLNormal 0.10-1.20[facility] CenterComment on above:Performed By: #### CDP, CP #### [address] [address] Home Care Giver: KIA Díazonocytes/100 WBC (Bld)12 %Normal3-12[facility] CenterComment on above:Performed By: #### CDP, CP #### [address] [address] Home Care Giver: Juan Perera MDNeutrophil (Seg)63 %Qylnua25-36AoduuMain Campus Medical CenterComment on above:Performed By: #### CDP, CP #### [address] [address] Home Care Giver: Juan Perera MDNRBC Automated0.0 per 100 WBCNormal0.0[facility] CenterComment on above:Performed By: #### CDP, CP #### [address] [address] Home Care Giver: Rah Díaztetess mean volume (Bld) [Entitic vol]9.4 fL Normal8.1-13.5Main Campus Medical CenterComment on above:Performed By: #### CDP, CP #### [address] [address] Home Care Giver: FAHAD Díazlatelets (Bld) [#/Vol]199 10*3/ePGirhht180-973 [facility] CenterComment on above:Performed By: #### CDP, CP #### [address] [address] Home Care Giver: Juan Perera MDRBC (Bld) [#/Vol]4.10 10*6/uLNormal3.95-5.11 [facility] Medical CenterComment on above:Performed By: #### CDP, CP #### [facility] [address] [place] [address] Home Care Giver: SEEMA Díaz morphology finding Nom (Bld)ANISOCYTOSIS PRESENTWayne HealthCare Main CampusComment on above:Performed By: #### CDP, CP #### [address] [address] Home Care Giver: SCOTTIE Díaz (Bld) [#/Vol]7.8 10*3/uLNormal3.5-11.3[facility] Medical CenterComment on above:Performed By: #### CDP, CP #### [address] [address] Home Care Giver: Marisol Díaz PerformedNOT REPORTEDWayne HealthCare Main CampusComment on above:Performed By: #### CDP, CP #### [address] [address] Home Care Giver: Rah Díaztelets (Bld) [#/Vol]NOT REPORTEDWayne HealthCare Main CampusComment on above:Performed By: #### CDP, CP #### [facility] [address] [place] [address] Home Care Giver: SCOTTIE Díaz MorphologyNOT REPORTEDWayne HealthCare Main CampusComment on above:Performed By: #### CDP, CP #### [facility] [address] [place] [address] Home Care Giver: Rahul Díaz Metabolic Profon 08-03-2019(cont.)Normal [facility] Campus Medical CenterComment on above:Result Comment: Average GFR for 70 or more years old: 75 mL/min/1.73sq m Chronic Kidney Disease: <60 mL/min/1.73sq m Kidney failure: <15 mL/min/1.73sq m eGFR calculated using average adult body mass. Additional eGFR calculator available at: http://www.[employer].Ivalua/multiple_crcl_2012.htmPerformed By: #### ARAMIS, CP #### [address] [address] Home Care Giver: Juan Perera MDAlbumin [Mass/Vol]2.7 g/dLLow3.5-5.2[facility] Medical CenterComment on above:Performed By: #### CDP, CP #### [facility] [address] [address] Home Care Giver: Juan Perera MDAlbumin/Globulin [Mass ratio]0.8 {ratio}Low 1.0-2.5Main Campus Medical CenterComment on above:Performed By: #### ARAMIS, CP #### [place] [address] Home Care Giver: Jessica Díazkaline Phos65 U/ACxcgbf96-723TrgzvMain Campus Medical CenterComment on above:Performed By: #### ARAMIS, CP #### [address] [address] Home Care Giver: Juna Perera MDALT [Catalytic activity/Vol]8 U/LNormal5-33[facility] Campus Medical CenterComment on above:Performed By: #### ARAMIS, CP #### [place] [address] Home Care Giver: Juan Perera MDAnion gap [Moles/Vol]12 mmol/LNormal9-17[facility] Campus Medical CenterComment on above:Performed By: #### CDP, CP #### [address] [address] Home Care Giver: Juan Perera MDAST [Catalytic activity/Vol]13 U/LNormal<32[facility] Medical CenterComment on above:Performed By: #### CDP, CP #### [address] [address] Home Care Giver: Juan Perera MDBilirubin Ql (U)0.41 mg/dLNormal0.3-1.2MSilver Lake Medical Center, Ingleside CampusComment on above:Performed By: #### CDP, CP #### [address] [address] Home Care Giver: LOGAN Díazalcium [Mass/Vol]8.3 mg/dLLow8.6-10.4[facility] Campus Medical CenterComment on above:Performed By: #### CDP, CP #### [address] [address] Home Care Giver: LOGAN Díazhloride [Moles/Vol]108 mmol/ESdpn75-727ZdwytMain Campus Medical CenterComment on above:Performed By: #### CDP, CP #### [address] [address] Home Care Giver: Juan Perera MDCO2 [Moles/Vol]22 mmol/DFpaint72-60GlhkcMain Campus Medical CenterComment on above:Performed By: #### CDP, CP #### [address] [address] Home Care Giver: LOGAN Díazreatinine [Mass/Vol]0.72 mg/dLNormal0.50-0.90 [facility] Medical CenterComment on above:Performed By: #### CDP, CP #### [facility] [address] [place] [address] Home Care Giver: Juan Perera MDGFR, Amer>60Normal>60Main Campus Medical CenterComment on above:Performed By: #### CDP, CP #### [address] [address] Home Care Giver: ALEX Díaz,non Amer>60Normal>60[facility] Campus Medical CenterComment on above:Performed By: #### CDP, CP #### [place] [address] Home Care Giver: Juan Perera MDGlucose [Mass/Vol]78 mg/kJHhhyso22-39UgqmlSilver Lake Medical Center, Ingleside CampusComment on above:Performed By: #### CDP, CP #### [place] [address] Home Care Giver: Juan Perera MDPotassium [Moles/Vol]3.9 mmol/LNormal3.7-5.3 [facility] Medical CenterComment on above:Performed By: #### CDP, CP #### [place] [address] Home Care Giver: FAHAD Díazrotein [Mass/Vol]6.2 g/dLLow6.4-8.3MSilver Lake Medical Center, Ingleside CampusComment on above:Performed By: #### CDP, CP #### [place] [address] Home Care Giver: RAJ Díazodium [Moles/Vol]142 mmol/WPmligf111-529NltbrMain Campus Medical CenterComment on above:Performed By: #### CDP, CP #### [place] [address] Home Care Giver: Juan Perera MDUrea nitrogen [Mass/Vol]11 mg/dLNormal8-23Main Campus Medical CenterComment on above:Performed By: #### CDP, CP #### [place] [address] Home Care Giver: Juan Perera MDBUN/CRE RatioNOT REPORTEDNormal9-20[facility] Campus Medical CenterComment on above:Performed By: #### CDP, CP #### [place] [id number] Home Care Giver: Juan Perera MDStaging:NOT REPORTEDNormalMain Campus Medical CenterComment on above:Performed By: #### CDP, CP #### [facility] [address] [place], [place] [phone] Home Care Giver: Juan Perera [facility]om[facility] Metabolic Panelon 08-03-2019 Albumin [Mass/Vol]2.7 g/dLLow3.5 - 5.2 g/dLMercy Health- [place], KYAlbumin/Globulin [Mass ratio]0.8 {ratio}LowMercy Health- [place], KYALP [Catalytic activity/Vol]65 U/L 35 - 104 U/LMercy Health- [place], KYALT [Catalytic activity/Vol]8 U/L5 - 33 U/LMercy Health- [place], KYAnion gap [Moles/Vol]12 mmol/L9 - 17 mmol/LMercy Health- [place], KYAST [Catalytic activity/Vol]13 U/L<32[facility]- [place], KYBilirubin Ql (U)0.41 mg/dL 0.3 - 1.2 mg/dLMercy Health- [place], KYBun/Cre RatioNOT REPORTEDMercy Health- [place], [place] Calcium [Mass/Vol]8.3 mg/dLLow8.6 - 10.4 mg/dLMercy Health- [place], KYChloride [Moles/Vol]108 mmol/LHigh98 - 107 mmol/LMercy Health- [place], KYCO2 [Moles/Vol]22 mmol/L20 - 31 mmol/LMercy Health- [place], KYCreatinine [Mass/Vol]0.72 mg/dL0.5 - 0.9 mg/dLMercy Health- [place], KYGFR >60>60 mL/minMercy Health- [place], [place] GFR Non->60>60 mL/minMercy Health- [place], KYGFR/1.73 sq M predicted among non-blacks MDRD (S/P/Bld) [Vol rate/Area]NOT REPORTEDMercy Health- [place], [place] GFR/1.73 sq M predicted among non-blacks MDRD (S/P/Bld) [Vol rate/Area][facility], KYComment on above:Average GFR for 70 or more years old: 75 mL/min/1.73sq m Chronic Kidney Disease: <60 mL/min/1.73sq m Kidney failure: <15 mL/min/1.73sq m eGFR calculated using average adult body mass. Additional eGFR calculator available at: http://www.Plix/multiple_crcl_2012.htm Glucose [Mass/Vol]78 mg/dL70 - 99 mg/dLProMedica Flower Hospital, KYInterpretation and review of laboratory resultsAbnormalProMedica Flower Hospital, KYPotassium [Moles/Vol]3.9 mmol/L3.7 - 5.3 mmol/LMWright-Patterson Medical Center, KYProtein [Mass/Vol]6.2 g/dLLow6.4 - 8.3 g/dLProMedica Flower Hospital, KYSodium [Moles/Vol]142 mmol/L135 - 144 mmol/LMWright-Patterson Medical Center, KYUrea nitrogen [Mass/Vol]11 mg/dL8 - 23 mg/dLProMedica Flower Hospital, KYXR ABDOMEN (KUB) (SINGLE AP VIEW)on [id number] ABDOMEN (KUB) (SINGLE AP VIEW) EXAMINATION: ONE [...] by: Jose Martin Hope MD 08/03/[address] Charles HospitalNonspecific bowel gas pattern. [facility] HospitalNickolas Mhpn Incoming Radiant Results From [employer] - 08/03/2019 9:28 AM EDT EXAMINATION: ONE SUPINE XRAY VIEW(S) OF THE ABDOMEN 08/03/2019 9:06 am COMPARISON: 08/02/2019 HISTORY: ORDERING SYSTEM PROVIDED HISTORY: SBO TECHNOLOGIST PROVIDED HISTORY: SBO Reason for Exam: supine FINDINGS: Nonspecific bowel gas pattern. No pathologic bowel dilatation. Gas throughout the colon. Rectal gas. Enteric tube within the stomach. No organomegaly. No suspicious calcifications. IMPRESSION: Nonspecific bowel gas pattern. [place], KYEXAMINATION: ONE SUPINE XRAY VIEW(S) OF THE ABDOMEN 08/03/2019 9:06 am COMPARISON: 08/02/2019 HISTORY: ORDERING SYSTEM PROVIDED HISTORY: SBO TECHNOLOGIST PROVIDED HISTORY: SBO Reason for Exam: supine F INDINGS: Nonspecific bowel gas pattern. No pathologic bowel dilatation. Gas throughout the colon. Rectal gas. Enteric tube within the stomach. No organomegaly. No suspicious calcifications.[place], KYCBC Auto Differentialon [id number] (Bld) [#/Vol]0.03 10*3/[place], [place] Basophils/100 WBC (Bld)0 %0 - 2 %[place], KYDifferential TypeNOT REPORTEDNav[place], KYEosinophils (Bld) [#/Vol]0.17 10*3/[facility], WAEosinophils/100 WBC (Bld)2 %1 - 4 %[place], KYErythrocyte distribution width (RBC) [Ratio]15.6 %High11.8 - 14.4 %[place], [place] Hematocrit (Bld) [Volume fraction]36.3 %36.3 - 47.1 %[place], [place] Hemoglobin (Bld) [Mass/Vol]11.7 g/dLLow11.9 - 15.1 g/dLNav[place], [place] Immature granulocytes (Bld) [#/Vol]0 %0[place], KYImmature granulocytes (Bld) [#/Vol]0.03 10*3/[place], KYInterpretation and review of laboratory resultsAbnormalNav[place], KYLymphocytes (Bld) [#/Vol]1.85 10*3/[place], KYLymphocytes/100 WBC (Bld)20 %Low24 - 43 %[place], KYMCH (RBC) [Entitic mass]27.9 pg25.2 - 33.5 pgNav[place], [place] MCHC (RBC) [Mass/Vol]32.2 g/dL28.4 - 34.8 g/dLProMedica Flower Hospital, PATRICEMCV (RBC) [Entitic vol]86.6 fL82.6 - 102.9 fLProMedica Flower Hospital, PATRICEMonocytes (Bld) [#/Vol] 1.08 10*3/uLProMedica Flower Hospital, KYMonocytes/100 WBC (Bld)12 %3 - 12 %[place], KYPlatelet mean volume (Bld) [Entitic vol]9.3 fL8.1 - 13.5 fLProMedica Flower Hospital, WAPlatelets (Bld) [#/Vol]215 10*3/[facility], KYPlatelets (Bld) [#/Vol]NOT REPORTEDSelect [facility] [place] (Bld) [#/Vol]4.19 10*6/uL3.95 - 5.11 m/uLProMedica Flower Hospital, WARB morphology finding Nom (Bld)ANISOCYTOSIS PRESENT [facility], PATRICESegmented neutrophils/100 WBC (Bld)66 %High36 - 65 %[facility], PATRICESegs Absolute6.12[facility], WAWBC (Bld) [#/Vol]9.3 10*3/uL [facility], WAWBC (Bld) [#/Vol]0.0 10*3/uL0.0 per 100 WBCProMedica Flower Hospital, WAWBC MorphologyNOT REPORTED[place], KYCB with Diffon [id number]. Basophil0.03 k/uLNormal0.00-0.20Main Campus Medical CenterComment on above:Performed By: #### ARAMIS LOTT, JOSEPH #### [facility] [place] [address] Home Care Giver: Travis Díaz.Imm.Granulocyte0.03 k/uLNormal0.00-0.30Main Campus Medical CenterComment on above:Performed By: #### ARAMIS LOTT, JOSEPH #### [address] [address] Home Care Giver: Travis Díaz.Neutrophil (Seg)6.12 k/uLNormal1.50-8.10 [facility] Campus Medical CenterComment on above:Performed By: #### ARAMIS LOTT, REJEC #### [address] [address] Home Care Giver: Juan Perera MDBasophils/100 WBC (Bld)0 %Normal0-2MSilver Lake Medical Center, Ingleside CampusComment on above:Performed By: #### ARAMIS LOTT, REJEC #### [address] [address] Home Care Giver: Juan Perera MDEosinophils (Bld) [#/Vol]0.17 10*3/uLNormal 0.00-0.44[facility] Campus Medical CenterComment on above:Performed By: #### ARAMIS LOTT, REJEC #### [address] [address] Home Care Giver: Juan Perera MDEosinophils/100 WBC (Bld)2 %Normal1-4Main Campus Medical CenterComment on above:Performed By: #### ARAMIS LOTT, REJEC #### [address] [address] Home Care Giver: Juan Perera MDImmature granulocytes (Bld) [#/Vol]0 %Normal0 [facility] Campus Medical CenterComment on above:Performed By: #### ARAMIS LOTT, REJEC #### [address] [address] Home Care Giver: Juan Perera MDLymphocytes (Bld) [#/Vol]1.85 10*3/uLNormal 1.10-3.70[facility] Campus Medical CenterComment on above:Performed By: #### ARAMIS LOTT, REJEC #### [facility] [address] [place] [address] Home Care Giver: Juan Perera MDLymphocytes/100 WBC (Bld)20 %Pjp62-01AboihMain Campus Medical CenterComment on above:Performed By: #### ARAMIS LOTT, REJEC #### [address] [address] Home Care Giver: Juan Perera MDMonocytes (Bld) [#/Vol]1.08 10*3/uLNormal 0.10-1.20[facility] Medical CenterComment on above:Performed By: #### ARAMIS LOTT, REJEC #### [address] [address] Home Care Giver: KIA Díazonocytes/100 WBC (Bld)12 %Normal3-12[facility] Campus Medical CenterComment on above:Performed By: #### ARAMIS LOTT, REJEC #### [address] [address] Home Care Giver: Juan Perera MDNeutrophil (Seg)66 %Dpzx27-14GpdopMain Campus Medical CenterComment on above:Performed By: #### ARAMIS LOTT, REJEC #### [address] [address] Home Care Giver: EUGENIA DíazBC morphology finding Nom (Bld)ANISOCYTOSIS PRESENTNormalMain Campus Medical CenterComment on above:Performed By: #### ARAMIS LOTT, REJEC #### [address] [address] Home Care Giver: Juan Perera MDErythrocyte distribution width (RBC) [Ratio]15.6 %High11.8-14.4[facility] Campus Medical CenterComment on above:Performed By: #### ARAMIS LOTT, REJEC #### [address] [address] Home Care Giver: Juan Perera MDHematocrit (Bld) [Volume fraction]36.3 %Normal 36.3-47.1MSilver Lake Medical Center, Ingleside CampusComment on above:Performed By: #### ARAMIS LOTT, REJEC #### [address] [address] Home Care Giver: Juan Perera MDHemoglobin (Bld) [Mass/Vol]11.7 g/dLLow11.9-15.1 [facility] Medical CenterComment on above:Performed By: #### ARAMIS LOTT, REJEC #### [address] [address] Home Care Giver: KIA DíazCH (RBC) [Entitic mass]27.9 tjCiktev89.2-33.5 [facility] CenterComment on above:Performed By: #### ARAMIS LOTT, REJEC #### [address] [address] Home Care Giver: KIA DíazCHC (RBC) [Mass/Vol]32.2 g/pVMxvbsw50.4-34.8 [facility] CenterComment on above:Performed By: #### ARAMIS LOTT, REJEC #### [address] [address] Home Care Giver: KIA DíazCV (RBC) [Entitic vol]86.6 vEFvbroe82.6-102.9 [facility] Medical CenterComment on above:Performed By: #### ARAMIS LOTT, REJEC #### [address] [address] Home Care Giver: Juan Perera MDNRBC Automated0.0 per 100 WBCNormal0.0[facility] Campus Medical CenterComment on above:Performed By: #### ARAMIS LOTT, REJEC #### [facility] [address] [place] [address] Home Care Giver: Jahaira Díaz mean volume (Bld) [Entitic vol]9.3 fL Normal8.1-13.5[facility] Medical CenterComment on above:Performed By: #### ARAMIS LOTT, REJEC #### [facility] [address] [place] [address] Home Care Giver: Es Díaz (Bld) [#/Vol]215 10*3/rPLmznhb163-453 [facility] CenterComment on above:Performed By: #### ARAMIS LOTT, REJEC #### [address] [address] Home Care Giver: EUGENIA DíazBC (Bld) [#/Vol]4.19 10*6/uLNormal3.95-5.11 [facility] CenterComment on above:Performed By: #### ARAMIS LOTT, REJEC #### [facility] [address] [place] [address] Home Care Giver: Juan Perera MDWBC (Bld) [#/Vol]9.3 10*3/uLNormal3.5-11.3MSilver Lake Medical Center, Ingleside CampusComment on above:Performed By: #### ARAMIS LOTT, REJEC #### [facility] [place] [address] Home Care Giver: Marisol DíazNOT REPORTEDI-70 Community HospitalalMain Campus Medical CenterComment on above:Performed By: #### ARAMIS LOTT, REJEC #### [facility] [address] [place] [address] Home Care Giver: Juan Madoff, MDPlatelets (Bld) [#/Vol]NOT REPORTEDNoMercy Health St. Charles HospitalComment on above:Performed By: #### ARAMIS LOTT, JOSEPH #### [facility] [address] [place] [address] Home Care Giver: SCOTTIE Díaz MorphologyNOT REPORTEDNoMercy Health St. Charles HospitalComment on above:Performed By: #### ARAMIS LOTT, REJHUBERT #### [facility] [address] [place] [address] Home Care Giver: Rahul Díaz Metabolic Profon 08-02-2019(cont.)Normal [facility] Medical CenterComment on above:Result Comment: Average GFR for 70 or more years old: 75 mL/min/1.73sq m Chronic Kidney Disease: <60 mL/min/1.73sq m Kidney failure: <15 mL/min/1.73sq m eGFR calculated using average adult body mass. Additional eGFR calculator available at: http://www.UCloud [employer].Ivalua/multiple_crcl_2012.htmPerformed By: #### CP #### [place] [address] Home Care Giver: Juan Perera MDAlbumin [Mass/Vol]3.1 g/dLLow3.5-5.2[facility] Medical CenterComment on above:Performed By: #### CP #### [facility] [address] [place] [address] Home Care Giver: Juan Perera MDAlbumin/Globulin [Mass ratio]0.9 {ratio}Low 1.0-2.5[facility] Medical CenterComment on above:Performed By: #### CP #### [facility] [address] [place] [address] Home Care Giver: Jessica Díazkaline Phos68 U/QIuoegp23-175JegggMain Campus Medical CenterComment on above:Performed By: #### CP #### [facility] [address] [place] [address] Home Care Giver: Juan Perera MDALT [Catalytic activity/Vol]8 U/LNormal5-33[facility] Medical CenterComment on above:Performed By: #### CP #### [facility] [address] [place] [address] Home Care Giver: Juan Perera MDAnion gap [Moles/Vol]9 mmol/LNormal9-17[facility] Medical CenterComment on above:Performed By: #### CP #### [address] [address] Home Care Giver: Juan Perera MDAST [Catalytic activity/Vol]11 U/LNormal<32[facility] Medical CenterComment on above:Performed By: #### CP #### [address] [address] Home Care Giver: Juan Perera MDBilirubin Ql (U)0.39 mg/dLNormal0.3-1.2MSilver Lake Medical Center, Ingleside CampusComment on above:Performed By: #### CP #### [address] [address] Home Care Giver: Juan Perera MDCalcium [Mass/Vol]8.6 mg/dLNormal8.6-10.4[facility] Medical CenterComment on above:Performed By: #### CP #### [facility] [address] [place] [address] Home Care Giver: Juan Perera MDChloride [Moles/Vol]106 mmol/TDntlkc54-541JeybyMain Campus Medical CenterComment on above:Performed By: #### CP #### [address] [address] Home Care Giver: Juan Perera MDCO2 [Moles/Vol]25 mmol/QLytrmn81-39HztcgMain Campus Medical CenterComment on above:Performed By: #### CP #### [address] [address] Home Care Giver: LOGAN Díazreatinine [Mass/Vol]0.68 mg/dLNormal0.50-0.90 [facility] Medical CenterComment on above:Performed By: #### CP #### [address] [address] Home Care Giver: Juan Perera MDGFR, Amer>60Normal>60[facility] Medical CenterComment on above:Performed By: #### CP #### [address] [address] Home Care Giver: Juan Perera MDGFR,non Amer>60Normal>60[facility] Medical CenterComment on above:Performed By: #### CP #### [address] [address] Home Care Giver: Juan Perera MDGlucose [Mass/Vol]108 mg/kOYgbf16-56ZcirnSilver Lake Medical Center, Ingleside CampusComment on above:Performed By: #### CP #### [address] [address] Home Care Giver: Juan Perera MDPotassium [Moles/Vol]3.8 mmol/LNormal3.7-5.3 [facility] Medical CenterComment on above:Performed By: #### CP #### [address] [address] Home Care Giver: Juan Perera MDProtein [Mass/Vol]6.4 g/dLNormal6.4-8.3MSilver Lake Medical Center, Ingleside CampusComment on above:Performed By: #### CP #### [address] [address] Home Care Giver: RAJ Díazodium [Moles/Vol]140 mmol/MBccmed197-259YcqqsMain Campus Medical CenterComment on above:Performed By: #### CP #### [facility] [address] [place] [address] Home Care Giver: Juan Perera MDUrea nitrogen [Mass/Vol]14 mg/dLNormal8-23[facility] Medical CenterComment on above:Performed By: #### CP #### [facility] [address] [place] [address] Home Care Giver: Juan Perera MDBUN/CRE RatioNOT REPORTEDNormal9-20[facility] Medical CenterComment on above:Performed By: #### CP #### [facility] [address] [place] [address] Home Care Giver: RAJ Díaztaging:NOT REPORTEDNormalMain Campus Medical CenterComment on above:Performed By: #### CP #### [facility] [address] [place] [address] Home Care Giver: LOGAN Díazomprehensive Metabolic Panelon 08-02-2019 Albumin [Mass/Vol]3.1 g/dLLow3.5 - 5.2 g/dLOhiohealth Nelsonville Health Center Health- [place], KYAlbumin/Globulin [Mass ratio]0.9 {ratio}LowMercy Health- [place], KYALP [Catalytic activity/Vol]68 U/L 35 - 104 U/LMercy Health- [place], KYALT [Catalytic activity/Vol]8 U/L5 - 33 U/LMercy Health- [place], KYAnion gap [Moles/Vol]9 mmol/L9 - 17 mmol/LMercy Health- [place], KYAST [Catalytic activity/Vol]11 U/L<32[facility]- [place], KYBilirubin Ql (U)0.39 mg/dL 0.3 - 1.2 mg/dLMercy Health- [place], KYBun/Cre RatioNOT REPORTEDMercy Health- [place], [place] Calcium [Mass/Vol]8.6 mg/dL8.6 - 10.4 mg/dLMccullough-Hyde Memorial Hospital- [place], KYChloride [Moles/Vol]106 mmol/L98 - 107 mmol/LMTogus VA Medical Center- [place], KYCO2 [Moles/Vol]25 mmol/L 20 - 31 mmol/LMTogus VA Medical Center- [place], KYCreatinine [Mass/Vol]0.68 mg/dL0.5 - 0.9 mg/dL [facility], KYGFR >60>60 mL/minMetrohealth Cleveland Heights Medical Center [place], KYGFR Non->60>60 mL/minMetrohealth Cleveland Heights Medical Center [place], KYGFR/1.73 sq M predicted among non-blacks MDRD (S/P/Bld) [Vol rate/Area][facility], KYComment on above:Average GFR for 70 or more years old: 75 mL/min/1.73sq m Chronic Kidney Disease: <60 mL/min/1.73sq m Kidney failure: <15 mL/min/1.73sq m eGFR calculated using average adult body mass. Additional eGFR calculator available at: http://www.Plix/multiple_crcl_2012.htm GFR/1.73 sq M predicted among non-blacks MDRD (S/P/Bld) [Vol rate/Area]NOT REPORTEDProMedica Flower Hospital, KYGlucose [Mass/Vol]108 mg/oVBcgm72 - 99 mg/dLProMedica Flower Hospital, KYInterpretation and review of laboratory resultsAbnormalProMedica Flower Hospital, KYPotassium [Moles/Vol]3.8 mmol/L3.7 - 5.3 mmol/LMHocking Valley Community Hospital [place], KYProtein [Mass/Vol]6.4 g/dL6.4 - 8.3 g/dLProMedica Flower Hospital, KYSodium [Moles/Vol] 140 mmol/L135 - 144 mmol/LMTogus VA Medical Center- [place], KYUrea nitrogen [Mass/Vol]14 mg/dL8 - 23 mg/dLProMedica Flower Hospital, KYLACTIC ACID, WHOLE BLOODon [id number] Acid, Whole Blood1.0 mmol/L0.7 - 2.1 mmol/LMHocking Valley Community Hospital [place], KYLactic Acid,Whole Blon [id number] Acid,Whole Bl1.0 mmol/LNormal0.7-2.1[facility] Medical CenterComment on above:Performed By: #### ARAMIS LOTT, REJEC #### [facility] [address] [place] [phone] Home Care Giver: KYLIE Díaz REJECTIONon [id number] TestCP [facility], KYReason for RejectionUnable to perform testing: Specimen hemolyzed.[facility], TenerosSpecemory university hospital mid[facility] source Nom (Unsp spec)VPProMedica [facility] Hospital, [place]-NOT REPORTEDProMedica Flower Hospital, KYSpecimen Rejectionon [id number] for rejectionUnable to perform testing: Specimen hemolyzed.[facility] Main CampusComment on above:Performed By: #### ARAMIS LOTT, REJEC #### [facility] [address] [place] [phone] Home Care Giver: RAJ Díazource of sampleVPWayne HealthCare Main CampusComment on above:Performed By: #### ARAMIS LOTT, REJHUBERT #### [facility] [address] [place] [phone] Home Care Giver: Juan Perera MDTest orderedBrecksville VA / Crille HospitalComment on above:Performed By: #### ARAMIS LOTT, REJHUBERT #### [facility] [address] [place] [phone] Home Care Giver: Juan Perera MD-----NOT REPORTEDWayne HealthCare Main CampusComment on above:Performed By: #### ARAMIS LOTT, REJEC #### [facility] [address] [place] [phone] Home Care Giver: Juan Perera MDXR ABDOMEN FOR NG/OG/NE TUBE PLACEMENTon [id number] ABDOMEN FOR NG/OG/NE TUBE PLACEMENTEXAMINATION: ONE SUPINE XRAY VIEW(S) OF THE ABDOMEN [...] Signed by: Eduardo Horner MD 08/02/19 Final resultNormalAdena Regional Medical Center, [facility] Incoming Radiant Results From [employer]acs - 08/02/2019 4:59 AM EDT EXAMINATION: ONE [...] The tube should be advanced 4 cm. [facility], KYEXAMINATION: ONE SUPINE XRAY VIEW(S) OF THE ABDOMEN [...] genitourinary system. Very little bowel gas is seen.[facility], PATRICEThe tip of the enteric tube is in the stomach though the proximal side hole is in the esophagus. The tube should be advanced 4 cm.[facility], [place] Mammogram Routine Screening Bilat.on [id number] Mammogram Routine Screening Bilat.MAMMOGRAM ROUTINE SCREENING BILATERALCLINICAL DATA: Routine screeningScreening digital mammogram study of both breasts was performed and comparedto the prior exam dated 06/21/2017. Scattered areas offibroglandular densityare noted bilaterally. There is no evidence of interval dominant spiculatedmass, grouped microcalcifications or skin thickening which would besuggestive of malignancy. Scatteredbenign appearing calcifications are seenbilaterally, similar to prior study. Likely small intramammary lymph node onthe left as previously noted. Axillary lymph nodes are noted bilaterally.I CAD image fruit checker was utilized for this study.IMPRESSION:1. NO [...] positive reports average 6 to 10%.Chidi Preston MDJOB #: [id number]: 07/03/2018T: 07/03/2018 Final Dictated by: Chidi Preston MD SDictated DT/TM: 07/03/18 9:47Signed (Electronic Signature): Chidi Preston MD 07/03/18 1:53 pmTechnologist: CMAAssessment: 2-Benign findingRecommendation: Normal interval follow-upNormal [facility] HospitalProvider Orderson [id number] mass conc [id number]#[id number] Private Hospital HospitalCoding Summaryon [id number] SummaryCODING DATE: 09/03/2017 FINAL [facility] STATUS: Home PAYOR: Medicare ADMIT [...] Rosa Waller Revised Date Saved: 06/24/2017 10:08 [facility] Vital Signs Date TimeVital SignValuePerforming CvzveeyjtHelczvqp10-59-1159 09:38-0400Body bcjjha897.4 cmGustavo Salas DO Work Phone: noSt. [facility] CenterAfdwbqdzah79-19-4907 09:38-0400Body mass index (BMI) [Ratio]36.33 kg/f5XhzahlmGustavo Salas DO Work Phone: [facility] SystemLnnnflvrqd46-05-4328 09:38-0400Body .37 kgJejacob Salas DO Work Phone: [facility] SystemQgbpxkvhiv29-66-0895 09:38-0400Heart rate75 /min Gustavo Salas [employer] Work Phone: [facility] SystemUcmanfpsok15-14-8185 09:38-6148DzT6% (BldA) [Mass fraction]94 %Gustavo Salas DO Work Phone: noSt. Joseph Medical CenterJqefkpccwn65-56-5211 16:51-0500Body htgydn205.4 cmChano LewisWestcrete DO Work Phone: [facility] [employer] RecordsOfsdlc19-47-7566 16:51-0500Body sgdrxubktay24.9 [degF]Chano CoteArisoko DO Work Phone: [facility]12-30-2024 16:51-0500Diastolic blood gzrkhnia49 mm[Hg]Chano Cotelong DO Work Phone: [facility]12-30-2024 16:51-0500Heart rate 76 /minDennis KeraStewart Group Holdingsng DO Work Phone: [facility] [employer] Gxzjfs35-11-7177 16:51-0500 Respiratory rate18 /Jett Lewisng DO Work Phone: [facility] [employer] Cbfypt46-77-6623 16:51-9533FgM1% (BldA) [Mass fraction]96 %Chano Presley DO Work Phone: [facility] [employer] Mtnffm20-06-1936 16:51-0500Systolic blood uqoumzsu590 mm[Hg]Chano Lewisng DO Work Phone: [facility] [employer] Gsrwab87-24-4686 14:59-0500Body mass index (BMI) [Ratio]38.16 kg/n5Imomrjadelita Lewisng DO Work Phone: [facility] [employer] Gfcfpz69-53-7251 14:59-0500Body tgmdcxiopny52.59 [degF]Chano Presley DO Work Phone: [facility] [employer] Xhtcom14-07-0463 14:59-0500Body cepunr80.63 kgChano Presley DO Work Phone: [facility] [employer] Tityvx24-40-1485 14:59-0500Diastolic blood ucdvmvpf02 mm[Hg]Chano Presley DO Work Phone: [facility] [employer] Tcpgjs81-84-2044 14:59-0500Heart rate 84 /Jett Lewisng DO Work Phone: [facility] [employer] Wpkqdt56-08-0908 14:59-0500 Respiratory rate20 /Jett Lewisng DO Work Phone: [facility] [employer] Nvuhhl02-25-0023 14:59-6406CxT6% (BldA) [Mass fraction]94 %Chano Presley DO Work Phone: [facility] [employer] Hjylmz24-43-6016 14:59-0500Systolic blood mm[Hg]Chano Presley DO Work Phone: [facility] [employer] Onrrkp77-55-4407 15:18-0500Body mass index (BMI) [Ratio]38.16 kg/y3Drzuyq Furlong DO Work Phone: [facility] [employer] Orbkgd91-75-5528 15:18-0500Body qeifzrlymae10.39 [degF]Chano Cotelong DO Work Phone: [facility]12-20-2024 15:18-0500Body tecbnw49.63 kgDenadelita Furlong DO Work Phone: [facility]12-20-2024 15:18-0500Diastolic blood lljvprqi29 mm[Hg]Chano Cotelong DO Work Phone: [facility]12-20-2024 15:18-0500Heart rate 81 /Jett Cotelong DO Work Phone: [facility]12-20-2024 15:18-0500 Respiratory rate20 /Joseis Keralong DO Work Phone: [facility]12-20-2024 15:18-0500Systolic blood vfsatjmb434 mm[Hg]Chano Cotelong DO Work Phone: [facility]09-26-2024 13:14-0400Body kwjvec175.4 cmKalyan Barboza DPM Work Phone: [facility] SystemZuurzkzhtg63-89-1365 13:14-0400Body mass index (BMI) [Ratio]36.52 kg/s4WcqgefjvKalyan Barboza DPM Work Phone: [facility] SystemYwcpiiiomy46-10-2537 13:14-0400Body .82 kgKalyan Barboza DPM Work Phone: [place] [address]Andiyklqrn71-67-7758 13:14-0400Diastolic blood qycwkjjx85 mm[Hg]Kalyan Barboza DPM Work Phone: [facility] SystemLrfinqsvrg29-67-9850 13:14-0400Heart rate78 /min Kalyan Barboza DPM Work Phone: [place] [address]Sdpiayrwzy73-58-2666 13:14-0400Respiratory rate18 /minKalyan Barboza DPM Work Phone: [facility] SystemYtxzoolsug87-79-4578 13:14-0400Systolic blood gwlxvdox077 mm[Hg]Kalyan Barboza DPM Work Phone: [place] [address]Blfrddbrog75-14-9351 13:30-0400Body enbmcw774.4 cmKalyan Barboza DPM Work Phone: [place] [address]Ngiqduvpet38-84-1965 13:30-0400Body mass index (BMI) [Ratio]36.52 kg/s8XrjtqcnqKalyan Barboza DPM Work Phone: [place] [address]Sedhwblsha72-93-4237 13:30-0400Body eeayjs97.82 kgKalyan Barboza DPM Work Phone: [place] [address]Lmyqkceovk81-24-9521 13:30-0400Diastolic blood mm[Hg]Kalyan Barboza DPM Work Phone: 1(632)776-[address] [place], [place] [address]Pekadsfduo10-73-4886 13:30-0400Heart rate83 /min Kalyan Barboza DPM Work Phone: [place] [address]Dsdetuwrba58-37-7976 13:30-0400Systolic blood vfqtmcca141 mm[Hg]Kalyan Barboza DPM Work Phone: [place] [address]Wajftdqxqo53-07-5847 14:43-0400Body vwgwok426.4 cmGustavo Salas DO Work Phone: [place] [address]Sbczzkktjo10-29-0147 14:43-0400Body mass index (BMI) [Ratio]36.91 kg/m7LxgvadjGustavo Salas DO Work Phone: [place] [address]Fyqcrbjlpv04-24-3039 14:43-0400Body tigxuj90.73 kgGustavo Salas DO Work Phone: [place] [address]Bstjfxuuko61-41-7820 14:43-0400Diastolic blood puzhylyr73 mm[Hg]Gustavo Salas DO Work Phone: [place] [address]Agbyxiepfj97-47-6712 14:43-0400Heart rate97 /min Gustavo Salas DO Work Phone: [facility] SystemFiocwfdofz37-53-7399 14:43-5245XvG7% (BldA) [Mass fraction]95 %Gustavo Salas DO Work Phone: [facility] SystemHfnmjlgqss19-49-8253 14:43-0400Systolic blood vaqltqwg527 mm[Hg]Gustavo Salas DO Work Phone: [facility] SystemJhywkidban02-30-8095 10:18-0400Body mqujku555.4 cmBerkendy Zirker [employer]ORD [employer] Work Phone: [facility]05-21-2024 10:18-0400Body mass index (BMI) [Ratio]35.15 kg/b0Njpftlmej Zirker [employer]ORD [employer] Work Phone: [facility]05-21-2024 10:18-0400Body glcxsbidzjy60.2 [degF]Ginny Stoutrker RECORD PRODUCER[employer]EM[employer] Work Phone: [facility]05-21-2024 10:18-0400Body upzeop50.65 kgBerkendy Stoutrker RECORD PRODUCER[employer]EMAN Work Phone: [facility] CenterComment on above:per patient 03-17-2024 10:18-0400Diastolic blood wpuekdoo18 mm[Hg]Ginny Stoutrker RECORD PRODUCER[employer]EMAN Work Phone: [facility]05-21-2024 10:18-0400Heart rate 71 /minBerkendy Zirker RECORD PRODUCER[employer]EMAN Work Phone: [facility]05-21-2024 10:18-0400 Respiratory rate16 /minBernadine Girishrker RECORD PRODUCER[employer]AN Work Phone: [facility]05-21-2024 10:18-5642PuZ3% (BldA) [Mass fraction]95 %Ginny Stoutrker RECORD PRODUCER[employer] Work Phone: [facility]05-21-2024 10:18-0400Systolic blood ugilkqrj201 mm[Hg]Ginny Carterjoyce RECORD PRODUCER[employer]AN Work Phone: [facility]04-24-2024 19:31-8118IdC5% (BldA) [Mass fraction]95 %RABBIA SIDDIQIProKettering Health Behavioral Medical CenterComment on above:Performed By: #### ELEC #### [facility] ([id number]) [address], [address] [place], [place] 1485996-17-0193 16:00-0400Inhaled oxygen flow rate3.5 L/BongRay Salas Work Phone: [facility]04-22-2024 16:00-0400 SaO2% (BldA) [Mass fraction]90 %DO Gustavo Salas Work Phone: [facility]04-22-2024 14:02-0400 Body tkhqlo490.4 cmDO Gustavo Salas Work Phone: [facility]04-22-2024 12:32-0400 Diastolic blood liygnnam04 mm[Hg]DO Gustavo Salas Work Phone: [facility]04-22-2024 12:32-0400 Heart rate96 /Elmira Salas Work Phone: [facility]04-22-2024 12:32-0400 Respiratory rate18 /Elmira Salas Work Phone: [facility]04-22-2024 12:32-0400 Systolic blood gwrsblbi491 mm[Hg]DO Gustavo Salas Work Phone: [facility]04-22-2024 08:00-0400 Body zamwnehxsqw07.8 [degF]DO Gustavo Salas Work Phone: [facility]04-22-2024 05:48-0400 Body .1 kgDO Gustavo Salas Work Phone: 1(739)503-[address] [place], [place] 3040104-19-2024 16:43-0400 Body kowupb547.4 cmDO Gustavo Salas Work Phone: 6(430)[address]04-19-2024 16:43-0400 Body uzzcxzbrniw06.3 [degF]DO Gustavo Salas Work Phone: 1(445)[address]04-19-2024 16:43-0400 Body yyeuue61.9 kgDO Gustavo Salas Work Phone: 1(103)[address]04-19-2024 16:43-0400 Diastolic blood bupmplmw03 mm[Hg]DO Gustavo Salas Work Phone: 1(834)[address]04-19-2024 16:43-0400 Heart xmsu765 /Elmira Sortoed Baezman Work Phone: 1(966)125-[address] [place], [place] 3040104-19-2024 16:43-0400 Inhaled oxygen flow rate4 L/Elimra Chen Maritza Work Phone: 1(102)728-[address] [place], [place] 3040104-19-2024 16:43-0400 Respiratory rate20 /Elmira Salas Work Phone: 0(361)8-[address] [place], [place] 3040104-19-2024 16:43-0400 SaO2% (BldA) [Mass fraction]92 %DO Gustavo Salas Work Phone: 1(294)770-[address] [place], [place] 3040104-19-2024 16:43-0400 Systolic blood dyhygkht658 mm[Hg]DO Gustavo Salas Work Phone: 1(653)934-[address] [place], [place] 3040104-15-2024 12:36-0400 Body .4 cmJenna Engle MD Work Phone: [facility]04-15-2024 12:36-0400 Body mass index (BMI) [Ratio]35.15 kg/w9YofpvsJenna Engle MD Work Phone: [facility]04-15-2024 12:36-0400 Body ftmhux44.65 kgJenna Engle MD Work Phone: [address] [place], [place] 4874004-15-2024 12:36-0400 Diastolic blood apfplrcf46 mm[Hg]Jenna Engle MD Work Phone: [address] [place], [place] 4874004-15-2024 12:36-0400 Heart rate96 /minJenna Engle MD Work Phone: [address] [place], [place] 4874004-15-2024 12:36-0400 Systolic blood kfzjahuu569 mm[Hg]Jenna Engle MD Work Phone: 2(940)294-[address] [place], [place] 9957904-04-2024 13:31-0400 Blood Pressure LocationAurora Orzech [facility]04-04-2024 13:31-0400Body .24 [degF]Renae Orzech [facility]04-04-2024 13:31-0400Diastolic blood mm[Hg]Renae Orzech [facility]04-04-2024 13:31-0400Heart rate84 /minAsyaa Orzech [facility]04-04-2024 13:31-0400Systolic blood zasgejlq787 mm[Hg]Renae Orzech [facility]04-01-2024 13:42-0400Body gfiymf926.6 [facility] [address] [place], [place] 1605604-01-2024 13:42-0400Body mass index (BMI) [Ratio]32.96 kg/m[address]04-01-2024 13:42-0400Body naxmba14.[address] [place], [place] 5921904-01-2024 13:42-0400Diastolic blood cmhygpzx98 mm[Hg][address]04-01-2024 13:42-0400Systolic blood tgvedzav133 mm[Hg][address]03-11-2024 11:39-0400 Diastolic blood becbozdq88 mm[Hg]Jenna Engle MD Work Phone: 4(774)[address]03-11-2024 11:39-0400 Systolic blood yvimochz798 mm[Hg]Jenna Engle MD Work Phone: 1(567)[address]03-11-2024 11:38-0400 Body .6 cmJenna Engle MD Work Phone: 1(002)[address]03-11-2024 11:38-0400 Body mass index (BMI) [Ratio]32.96 kg/c3NkltudJenna Engle MD Work Phone: 5(662)697-[address] [place], [place] 9957903-11-2024 11:38-0400 Body .09 kgJenna Engle MD Work Phone: 4(310)855-[address] [place], [place] 9957903-11-2024 11:38-0400 Heart rate62 /minJenna Engle MD Work Phone: 9(669)395-[address] [place], [place] 9957902-12-2024 11:08-0500 Body mass index (BMI) [Ratio]34.18 kg/a7ZtlqjodGustavo Salas DO Work Phone: [facility] SystemLmsctxxqis01-46-5402 11:08-0500Body temperature 97.5 [degF]Gustavo Salas DO Work Phone: [facility] SystemCvwhojxrlu00-49-2537 11:08-0500Body .38 kgGustavo Salas DO Work Phone: [facility] SystemQnnsmqyebf45-23-3425 11:08-0500Diastolic blood oglpgkpb30 mm[Hg]Gustavo Salas DO Work Phone: 1(419)[address]02-12-2024 11:08-0500Heart rgxj219 /min Gustavoed Salas DO Work Phone: 1(519)[address] [place], [place] 4237802-12-2024 11:08-0391DtT5% (BldA) [Mass fraction]96 %Gustavo Salas DO Work Phone: 1(375)[address] [place], [place] 4237802-12-2024 11:08-0500Systolic blood onzjuzur500 mm[Hg]Gustavo Salas DO Work Phone: 1(432)[address] [place], [place] 4237810-24-2023 16:32-0400Heart rate95 /min DO Gustavo Maritza Work Phone: 1(949)[address] [place], [place] 6449110-24-2023 16:32-0400 Respiratory rate20 /minDO Gustavo Maritza Work Phone: 1(076)[address] [place], [place] 6449110-24-2023 12:00-0400 Body aegavlvhyfv11.1 [degF]DO Gustavo Maritza Work Phone: 1(844)[address] [place], [place] 6449110-24-2023 12:00-0400 Diastolic blood jawheqcl26 mm[Hg]DO Gustavo Maritza Work Phone: 1(498)[address] [place], [place] 6449110-24-2023 12:00-0400 SaO2% (BldA) [Mass fraction]95 %DO Gustavoed Salas Work Phone: 1(606)[address] [place], [place] 6449110-24-2023 12:00-0400 Systolic blood uokjayvw761 mm[Hg]DO Gustavo Maritza Work Phone: 1(496)[address] [place], [place] 6449110-24-2023 04:47-0400 Body .7 kgDO Gustavo Baezman Work Phone: 9(696)[address]10-23-2023 13:57-0400 Body nkhoxa233.4 cmDO Gustavo Maritza Work Phone: 3(991)[address]10-21-2023 20:08-0400 Diastolic blood uaryoslr22 mm[Hg]DO Gustavo Salas Work Phone: 1(711)918-[address] [place], [place] 3040110-21-2023 20:08-0400 Heart rate80 /minDO Gustavo Salas Work Phone: 8(394)702-[address] [place], [place] 3040110-21-2023 20:08-0400 Respiratory rate20 /minDO Gustavo Maritza Work Phone: 7(675)971-[address] [place], [place] 3040110-21-2023 20:08-0400 SaO2% (BldA) [Mass fraction]95 %DO Gustavo Salas Work Phone: 1(983)[address]10-21-2023 20:08-0400 Systolic blood ymbqcbet439 mm[Hg]DO Gustavo Salas Work Phone: 1(362)[address]10-21-2023 16:09-0400 Body isxblnfammb49.4 [degF]DO Gustavo Salas Work Phone: 1(411)107-[address] [place], [place] 3040110-21-2023 16:07-0400 Body nxrppa597.4 cmDO Gustavo Salas Work Phone: 1(249)354-[address] [place], [place] 3040110-21-2023 16:07-0400 Body datkir11 kgDO Gustavo Salas Work Phone: 1(118)[address]09-17-2023 13:39-0400 Body nmteoouoctt01.8 [degF]DO Gustavoed Salas Work Phone: 1(551)388-[address] [place], [place] 3040109-17-2023 13:39-0400 Diastolic blood mm[Hg]DO Gustavoed Salas Work Phone: 1(154)574-[address] [place], [place] 3040109-17-2023 13:39-0400 Heart rate80 /Elmira Gustavo Salas Work Phone: 3(552)373-[address] [place], [place] 3040109-17-2023 13:39-0400 Respiratory rate18 /BongRay Salas Work Phone: 8(627)283-[address] [place], [place] 3040109-17-2023 13:39-0400 SaO2% (BldA) [Mass fraction]94 %DO Gustavo Salas Work Phone: [facility]09-17-2023 13:39-0400 Systolic blood adkhdipy626 mm[Hg]DO Gustavoed Salas Work Phone: 1(521)890-[address] [place], [place] 3040109-17-2023 06:00-0400 Body .1 kgDO Gustavo Salas Work Phone: 1(915)[address]09-14-2023 15:28-0400 Body zmpvap871.4 cmDO Gustavo Salas Work Phone: 1(457)[address]09-13-2023 13:00-0400 Diastolic blood agvrjfiz34 mm[Hg]DO Gustavoed Salas Work Phone: 1(878)[address]09-13-2023 13:00-0400 Heart rate72 /minDO Gustavo Maritza Work Phone: 1(085)[address]09-13-2023 13:00-0400 Respiratory rate18 /minDO Gustavo Salas Work Phone: 1(738)497-[address] [place], [place] 3040109-13-2023 13:00-0400 SaO2% (BldA) [Mass fraction]96 %DO Gustavo Salas Work Phone: 1(891)828-[address] [place], [place] 3040109-13-2023 13:00-0400 Systolic blood zjjlbyso655 mm[Hg]DO Gustavoed Salas Work Phone: 1(573)064-[address] [place], [place] 3040108-21-2023 15:04-0400 Body umrydg110.4 cmDO Gustavo Salas Work Phone: 1(711)251-[address] [place], [place] 3040108-21-2023 15:04-0400 Body scxvegrqsfj09.7 [degF]DO Gustavoed Salas Work Phone: 2(633)920-[address] [place], [place] 3040108-21-2023 15:04-0400 Body stscar65.28 kgDO Gustavoed Salas Work Phone: 1(355)509-[address] [place], [place] 3040108-21-2023 15:04-0400 Diastolic blood vassxixa66 mm[Hg]DO Gustavo Salas Work Phone: [facility]08-21-2023 15:04-0400 Heart rate76 /Elmira Salas Work Phone: 1(296)757-77[facility]08-21-2023 15:04-0400 Respiratory rate19 /Elmira Salas Work Phone: [facility]08-21-2023 15:04-0400 SaO2% (BldA) [Mass fraction]96 %DO Gustavo Salas Work Phone: 1(104)[address]08-21-2023 15:04-0400 Systolic blood peccgbsm063 mm[Hg]DO Gustavo Salas Work Phone: 1(159)005[address]03-06-2023 11:45-0500 Body dcowslyeolu42.3 [degF]DO Gustavo Salas Work Phone: 1(766)[address]03-06-2023 11:45-0500 Diastolic blood ulojufan22 mm[Hg]DO Gustavo Salas Work Phone: 1(759)069-[address] [place], [place] 3040103-06-2023 11:45-0500 Heart rate78 /Elmira Salas Work Phone: 1(516)221-[address] [place], [place] 3040103-06-2023 11:45-0500 Inhaled oxygen flow rate2 L/Elmira Salas Work Phone: 1(581)701-[address] [place], [place] 3040103-06-2023 11:45-0500 Respiratory rate18 /Elmira Salas Work Phone: 4(832)119-[address] [place], [place] 3040103-06-2023 11:45-0500 SaO2% (BldA) [Mass fraction]92 %DO Gustavo Salas Work Phone: [facility]03-06-2023 11:45-0500 Systolic blood mmzaxeaq007 mm[Hg]DO Gustavo Salas Work Phone: 1(190)394-[address] [place], [place] 3040103-06-2023 06:00-0500 Body hniggt93.5 kgDO Gustavo Salas Work Phone: [address] [place], [place] 2450303-02-2023 10:00-0500 Body bamcir809.4 cmDO Gustavo Salas Work Phone: [address] [place], [place] 2450303-01-2023 23:00-0500 Diastolic blood iujwsmoa22 mm[Hg]DO Gustavo Salas Work Phone: [address] [place], [place] 2450303-01-2023 23:00-0500 Heart rate77 /BongO Gustavo Salas Work Phone: 8(506)966-[address] [place], [place] 3040103-01-2023 23:00-0500 Respiratory rate18 /Elmira Salas Work Phone: 1(624)095-[address] [place], [place] 3040103-01-2023 23:00-0500 SaO2% (BldA) [Mass fraction]94 %DO Gustavo Salas Work Phone: [address] [place], [place] 2450303-01-2023 23:00-0500 Systolic blood wyxqntrp773 mm[Hg]DO Gustavo Salas Work Phone: [address] [place], [place] 2450303-01-2023 18:59-0500 Body ovrwcl882.4 cmDO Gustavo Salas Work Phone: [address] [place], [place] 2450303-01-2023 18:59-0500 Body .8 [degF]DO Gustavo Salas Work Phone: 1(794)489-[address] [place], [place] 3040103-01-2023 18:59-0500 Body bbzixd11.3 kgDO Gustavo Salas Work Phone: [facility]01-26-2023 11:25-0500 Body qwxonsmmotw37.5 [degF]DO Gustavo Salas Work Phone: [facility]01-26-2023 11:25-0500 Diastolic blood qneieoyd40 mm[Hg]DO Gustavoed Salas Work Phone: [facility]01-26-2023 11:25-0500 Heart rate72 /minDO Gustavo Salas Work Phone: 1(117)825-[address] [place], [place] 3040101-26-2023 11:25-0500 Respiratory rate22 /minDO Gustavo Maritza Work Phone: 1(154)461-[address] [place], [place] 3040101-26-2023 11:25-0500 SaO2% (BldA) [Mass fraction]93 %DO Gustavoed Salas Work Phone: 1(532)600-[address] [place], [place] 3040101-26-2023 11:25-0500 Systolic blood mm[Hg]DO Gustavo Salas Work Phone: 1(079)[address]01-26-2023 10:26-0500 Body .4 cmDO Gustavo Salas Work Phone: 1(221)[address]01-26-2023 10:26-0500 Body scuyoq48.9 kgDO Gustavo Salas Work Phone: 1(907)187-[address] [place], [place] 3040108-04-2022 15:12-0400 Diastolic blood tajfovxw41 mm[Hg]DO Gustavo Maritza Work Phone: [address] [place], [place] 2450308-04-2022 15:12-0400 Heart rate69 /Elmira Chen Maritza Work Phone: [address] [place], [place] 2450308-04-2022 15:12-0400 Respiratory rate25 /Elmira Salas Work Phone: 1(944)159-[address] [place], [place] 3040108-04-2022 15:12-0400 SaO2% (BldA) [Mass fraction]98 %DO Gustavo Maritza Work Phone: [facility]08-04-2022 15:12-0400 Systolic blood fqxhhtde011 mm[Hg]DO Gustavo Salas Work Phone: [facility]08-04-2022 11:02-0400 Body mapnty285.94 cmDO Gustavo Salas Work Phone: [facility]08-04-2022 11:02-0400 Body pxauavrbbhz65.1 [degF]DO Gustavo Maritza Work Phone: [facility]08-04-2022 11:02-0400 Body siyfvo22.18 kgDO Gustavo Maritza Work Phone: [facility]10-08-2019 08:30-0400 Body Alkillljkrp87.81 [degF]Hayden Watters [facility], [place]14-53-3320 08:30-0400BP Bpzbfpgoa81 mm[Hg]Hayden Watters [facility], IW51-47-5795 08:30-0400BP Deuysbkt505 mm[Hg]Hayden Watters [facility], [place]52-62-6455 08:30-0400Pulse (Heart Rate)78 /minWilberlindatatyana Duong [facility], [place] 08-04-2019 08:30-0400Pulse Rrnmsjcc53 %Hayden Watters [facility], [place] 08-04-2019 08:30-0400Respiratory Rate18 /minMalatisha Watters [facility], FX76-70-1951 01:00-0400BMI (Body Mass Index)34.44 kg/f1Pswabt Duong [facility], [place]17-31-3021 01:00-0400Body zmumwq57.67 kgMalindatatyana Duong [facility], [place]25-63-0896 01:00-9476Ndjlhx531.9 cmMalatisha Watters [facility], [place] Encounters Encounter DateEncounter TypeCare ProviderFacilityStart: 02-23-2025 End: 56-63-3733rjuxhcdygxSXZROhioHealth Hardin Memorial Hospitaltart: 02-09-2025 End: 12-75-8447Rdsqtzt encounter procedureJejacob Salas DO Work Phone: [facility] S[facility] IMComment on above:Centrilobular emphysema (CMS/HCC) (Primary Dx)Start: 02-09-2025 End: 04-27-0452scpeskrxkvQZGYQKXCleveland Clinic Marymount Hospitaltart: 02-01-2025 End: 27-42-8822Heinrwgkt Result EncounterGeneric External Data ProviderNOMS External Department UnsolicitedStart: 02-01-2025 End: 39-96-4558Lulxarqfg Result EncounterGeneric External Data ProviderNOMS External Department UnsolicitedStart: 02-01-2025 End: 97-58-8401hslnsrsseqAxonbbnMorrow [facility] Work Phone: Start: 02-01-2025 End: 13-04-6680Ujdublxm ReferredCourtlanded Samira DO Work Phone: [facility] HospStart: 01-20-2025 End: 38-89-1203xvrmgxxcdgUQOJPNN A GARMANNot AvailableStart: 01-20-2025 End: 85-37-3726Jpqhec outpatient visit 40 minutesGustavo Saals DO Work Phone: [facility] S[facility] IMComment on above:Acute on chronic systolic congestive heart failure (CMS/HCC) (Primary Dx); Ischemic heart disease (CMS/HCC); Coronary stent patent; Centrilobular emphysema (CMS/HCC); Essential hypertension (CMS/HCC); Stage 3a chronic kidney disease (HCC) (CMS/HCC); Morbid (severe) obesity due to excess calories (E66.01); Recurrent major depressive disorder, in partial remission (HCC) (CMS/HCC); Failed back syndrome; PainStart: 01-20-2025 End: 78-75-2238lzvcpvvqptYGMSIFKDanielle Marks AvailableStart: 01-11-2025 End: 28-16-4489Aagjositm Mayo Peres NUCLEAR MEDICINE MEDICAL DIRECTOR Work Phone: noms CI FMStart: 01-07-2025 End: 47-14-5285httfiurdzwIBBOOFGMetroHealth Main Campus Medical Centertart: 18-93-8369Cosqvvsxer and management of inpatientHANI [facility] Hospitaltart: 13-69-5934Mcrcxsubdk and management of inpatientHANI SALLY [facility]art: 10-33-9103Xonzthruhr and management of inpatientHANI [facility]tart: 12-18-2024 Evaluation and management of inpatientSARA [facility]: 33-41-4225Ggpzbdwfnf and management of inpatientABHISORLANDO CLARKE [facility] Hospitaltart: 14-00-6537Ugw-patient / Non-visit Gustavo Hogan DO Work Phone: [facility] Work Phone: Start: 31-87-6602Ynhffseazg and management of inpatientMEGHAN [facility] Hospitaltart: 12-17-2024 End: 03-20-2316Siyyobzcxc and management of inpatientSYED [facility] Centertart: 12-17-2024 End: 89-46-8292Micplhfux Result EncounterGeneric External Data ProviderNOMS External Department UnsolicitedStart: 12-17-2024 End: 26-13-3537Hqaffxjpp Result EncounterGeneric External Data ProviderNOMS External Department UnsolicitedStart: 12-14-2024 End: 84-17-4258lovqjanktyBqklqmk D [facility] Work Phone: Start: 12-14-2024 End: 54-45-5274Ggsknlbw ReferredGustavo Hogan [facility] Spec [place] HospStart: 12-13-2024 End: 59-86-1096Tlyubsubp Result EncounterGeneric External Data ProviderNOMS External Department UnsolicitedStart: 12-13-2024 End: 23-36-5346Prikdndpg Result EncounterGeneric External Data ProviderNOMS External Department UnsolicitedStart: 22-94-9883Aii-patient / Non-visitGustavo Hogan DO Work Phone: [facility] OutPt Work Phone: Start: 12-07-2024 End: 32-34-1823Mantdpuhc Result EncounterGeneric External Data ProviderNOMS External Department UnsolicitedStart: 12-07-2024 End: 14-57-4249Jghdqjeeg Result EncounterGeneric External Data ProviderNOMS External Department UnsolicitedStart: 10-26-2024 End: 42-29-7164Uvjqrrqbvb Yoselin Presley DO Work Phone: 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 Internal Medicine - Family MedicineStart: 10-20-2024 End: 88-75-6737Rddhdoerma Yoselin Presley DO Work Phone: [facility] Physicians Internal Medicine - Family MedicineComment on above:Chronic obstructive pulmonary disease with acute exacerbation (CMS-HCC) (Primary Dx); Pneumonia of right lower lobe due to infectious organism; Gastroesophageal reflux disease without esophagitis; Closed wedge compression fracture of T6 vertebra with routine healing, subsequent encounter; Moderate episode of recurrent major depressive disorder (CMS-HCC); Encephalopathy, unspecified typeStart: 10-16-2024 End: 73-61-0378fljoaituphNdomey G Furlong DO Work Phone: [facility] Physicians Internal Medicine - Family MedicineComment on above:Chronic obstructive pulmonary disease with acute exacerbation (CMS-HCC) (Primary Dx); Sleep apnea, unspecified type; Anxiety; Insomnia, unspecified type; Closed fracture of sixth thoracic vertebra with routine healing, unspecified fracture morphology, subsequent encounter; 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Start: 10-13-2024 End: 35-35-9807Ciw-patient / Non-visitJeffrey [facility] Work Phone: Start: 10-12-2024 End: 31-38-5741Lpajstwjx Result EncounterGeneric External Data ProviderNOMS External Department UnsolicitedStart: 10-12-2024 End: 06-11-6260Jabypkxwj Result EncounterGeneric External Data ProviderNOMS External Department UnsolicitedStart: 10-07-2024 End: 16-83-6609Znmazrqzm Result EncounterGeneric External Data ProviderNOMS External Department UnsolicitedStart: 10-07-2024 End: 68-99-6556Jxqlfnncn Result EncounterGeneric External Data ProviderNOMS External Department UnsolicitedStart: 10-06-2024 End: 74-90-2351Okhgrrb encounter procedureGustavo Baezman DO Work Phone: noms SWS IMComment on above:Centrilobular emphysema (CMS/HCC) (Primary Dx); Foraminal stenosis of lumbar region; Failed back syndromeStart: 10-01-2024 End: 21-05-2088Cioeyqjxt Result EncounterGeneric External Data ProviderNOMS External Department UnsolicitedStart: 10-01-2024 End: 77-20-9050Uxbxhgxik Result EncounterGeneric External Data ProviderNOMS External Department UnsolicitedStart: 09-20-2024 End: 62-69-0155Lgo-patient / [facility] Work Phone: Start: 09-19-2024 End: 70-03-2080Meiykyeca Result EncounterGeneric External Data ProviderNOMS External Department UnsolicitedStart: 09-19-2024 End: 18-52-7271Kfodonnvc Result EncounterGeneric External Data ProviderNOMS External Department UnsolicitedStart: 07-23-2024 End: 09-01-7140Rvybwx Beth Barboza DPM Work Phone: noms CI PODIATRYStart: 07-23-2024 End: 16-69-7600Bpnkylelizabeth Barboza DPM Work Phone: noms CI PODIATRYStart: 07-23-2024 End: 90-58-2303Rucfhk outpatient visit 15 minutesKalyan Barboza DPM Work Phone: noms CI PODIATRYComment on above:Other specified disorders of synovium, left ankle and foot (Primary Dx); Right Achilles tendinitis; Venous insufficiencyStart: 07-23-2024 End: 13-30-6673kvlnpzadavQMKLODEW A BROWNNot AvailableStart: 07-02-2024 End: 89-75-6065Dnmwui flowsheetKalyan Raza Chandrakant DPM Work Phone: noms CI PODIATRYStart: 07-02-2024 End: 55-22-5914Undjma flowsheetKalyan Raza Chandrakant DPM Work Phone: noms CI PODIATRYStart: 07-02-2024 End: 15-07-4877nmwpfxqecbJIONALJR A BROWNNot AvailableStart: 07-02-2024 End: 35-09-5538Jfewtu outpatient visit 15 Jakob Person Chandrakant DPM Work Phone: noms CI PODIATRYComment on above:Heel spur, right (Primary Dx); Venous insufficiency; Onychomycosis; Toe pain, left; Toe pain, right; Right Achilles tendinitisStart: 06-22-2024 End: 76-35-1820jrrawhbjhlGXFKMGU A GARMANNot AvailableStart: 06-22-2024 End: 00-79-2541Apyjph outpatient visit 40 minutesGustavo Salas DO Work Phone: noms SWS IMComment on above:Stage 3a chronic kidney disease (HCC) (CMS/HCC) (Primary Dx); Interstitial pulmonary disease, unspecified (CMS/HCC); Primary osteoarthritis involving multiple joints; Morbid (severe) obesity due to excess calories (E66.01); 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 (CMS/HCC); Chronic heart failure with preserved ejection fraction (CMS/HCC); Centrilobular emphysema (CMS/HCC); Neural foraminal stenosis of lumbosacral spine; Failed back surgical syndrome; Mixed hyperlipidemia ([facility]/HCC); Acute cystitis without hematuria; Anemia due to stage 3a chronic kidney disease (HCC) ([facility]/HCC)Start: 06-22-2024 End: 10-11-8774MjkdptPtbkdseЕлена Gutierrez NP Work Phone: NOMS SWS IMComment on above:Failed back surgical syndrome; Neural foraminal stenosis of lumbosacral spineStart: 05-22-2024 End: 90-42-3293hyfswdvlxaZZULYQL A GARMANNot AvailableStart: 05-16-2024 End: 82-85-8047vjhyebrregDBWIVJUC A BROWNNot AvailableStart: 05-06-2024 End: 10-66-1902obaylrytvrENLELOC A GARMANNot AvailableStart: 05-06-2024 End: 12-11-7587anannkwgbvIFEVWPW A GARMANNot AvailableStart: 05-01-2024 End: 76-27-3143TszagdCici Rubio [facility] Physicians Pulmonary/Sleep MedicineComment on above:Chronic obstructive pulmonary disease, unspecified COPD type ([facility]) (Primary Dx)Start: 04-27-2024 End: 61-07-8390isqltrwaahRVDDW [facility] HospitalStart: 04-13-2024 End: 84-01-4946zccyprgtgdMQIXA [facility] Clinictart: 04-08-2024 End: 57-45-9040ekjqkrbwsnKMENN [facility] HospitalStart: 04-02-2024 End: 21-48-4074vawxovxthdJIQRF [facility] HospitalStart: 03-30-2024 End: 10-58-2372cgkvzyzqqeEZVSCDD SCARLET [facility] Centertart: 03-18-2024 End: 28-27-3404inwbzlhtzlFEBCHJD SCARLET RESERMedina Hospitaltart: 03-17-2024 End: 37-53-2899Ryjvel outpatient visit 25 minutesGinny FLORIAN Work Phone: [facility] Infectious DiseaseComment on above:Hospital discharge follow-up (Primary Dx); Chronic respiratory failure with hypoxia, on home O2 therapy ([facility]-HCC); Former cigarette smoker; Abnormal CT of the chest; Longstanding persistent atrial fibrillation ([facility]-HCC)Start: 03-17-2024 End: 03-93-8459ujosmglnfwZSDSPNZMJ ZIRKERZanesville City Hospital HospitalStart: 03-11-2024 End: 59-69-2639hgsbebbubkNLTRQ [facility]UAscension [facility] HospitalStart: 03-05-2024 End: 88-17-6140tjsrpjnbqlNNQNPYW Aisha [facility]ITALGE[facility]GE [facility] HospitalStart: 03-04-2024 End: 77-73-7271fgwpfjgoxnDBELQSL A MARITZAFairfield Medical Center HospitalStart: 03-03-2024 End: 02-22-9194xtsvjbjahqPWGZRQY Aisha [facility] HospitalStart: 03-02-2024 End: 38-39-9509llzltphcccEUAHOMU Aisha [facility] HospitalStart: 02-27-2024 End: 36-24-1700wrpnpmcyfbNDIPORQ Aisha [facility] HospitalStart: 02-19-2024 End: 81-41-1207Xtsbppdbv department patient visitELIZABETHAnaly [place] [facility]AMer[facility] HospitalStart: 02-19-2024 End: 92-48-9501Kcqendkyhm and management of inpatientGUSTAVO SALASZanesville City Hospital HospitalStart: 02-19-2024 End: 04-44-1290Ubzhybhdr department patient visitYVONNEDEON [place] ANGELITAKALPESHZanesville City Hospital HospitalStart: 44-40-7892Roy-patient / Non-visitDO Gustavo Salas Work Phone: [facility] Work Phone: Start: 02-14-2024 End: 97-20-7134Mkdtbeqjgi and management of inpatientDO Gustavo Salas Work Phone: [facility] [place] [facility] Work Phone: Start: 02-10-2024 End: 42-42-9134ycmrwgukcfJESEVOAllegheny General Hospital AmbulatoryStart: 02-10-2024 End: 81-31-9891Ytwwoh outpatient visit 25 minutesJenna Engle MD Work Phone: [facility] on above:Shortness of breath; Coronary artery disease involving klawock coronary artery of klawock heart without angina pectoris; History of PTCA; Essential hypertension; Hyperlipidemia, mixed; Obstructive sleep apnea syndrome; BMI 35.0-35.9,adult; Current smoker; Chronic hypoxemic respiratory failure (Multi); Encounter to discuss test resultsStart: 02-05-2024 End: 85-08-6873ievllavazdCHPPAWP A GARMANNot AvailableStart: 01-30-2024 End: 91-79-7023rgqjhiobofHywpcn X OrzechFacility:FTMCStart: 01-30-2024 End: 42-83-9880opydohriapNeanmq X OrzechFacility:TRINI [place]uskyStart: 01-30-2024 End: 46-23-2349Dld Drop offAurora X Orzech [facility] Start: 01-30-2024 End: 92-07-2617Rkhjznn encounter procedureAurora X Orzech [facility] Colin Start: 01-27-2024 End: 66-94-6015Ndryrhnxh Result EncounterGeneric External Data ProviderNOMS External Department UnsolicitedStart: 01-27-2024 End: 21-92-2740Tcjlauuhf Result EncounterGeneric External Data ProviderNOMS External Department UnsolicitedStart: 01-27-2024 End: 93-41-2254tjzohbwrnqFVNKQMOhioHealth [facility] Start: 01-27-2024 End: 87-39-3682Dcwmgogdqd hospital visit by Rabia Shaw Echo/Vasc Room 2[facility] FirelandsComment on above:Shortness of breathStart: 01-13-2024 ambulatoryAurora OrzechFacility:EU [place]uskyStart: 01-06-2024 End: 60-79-1490datozxlrhnASVEDCAugusta University [facility] Center AmbulatoryStart: 01-06-2024 End: 60-39-1636Dpvbbem encounter procedureDO Gustvao Salas Work Phone: [facility] Work Phone: Start: 01-06-2024 End: 44-34-4727Htxtcc consultation new/estab patient 80 Ellie Engle MD Work Phone: [facility] CenterComment on above:Shortness of breath; Coronary artery disease involving klawock coronary artery of klawock heart without angina pectoris; Stage 3b chronic kidney disease (CMS/HCC); Microcytic anemia; History of PTCA; Essential hypertension; Hyperlipidemia, mixed; Obstructive sleep apnea syndrome; Chronic respiratory failure with hypoxia (CMS/HCC); Frequent UTI; BMI 32.0-32.9,adult; Cough with expectoration; Current smokerStart: 12-09-2023 End: 34-60-0215Yqfgaz outpatient visit 40 minutesGustavo Salas DO Work Phone: NONH SWS IMComment on above:SOB (shortness of breath) (Primary Dx); Wheezing; Urinary tract bacterial infections; Essential hypertension (CMS/HCC); Mixed hyperlipidemia (CMS/HCC); Stage 3a chronic kidney disease (HCC) (CMS/HCC); Sepsis with acute renal failure without septic shock, due to unspecified organism, unspecified acute renal failure type (CMS/HCC); Hospital discharge follow-up; Medication management; Female bladder prolapse; Pulmonary emphysema, unspecified emphysema type (CMS/HCC)Start: 11-12-2023 Telephone encounterEliabdulkadir DiamondMedibita Physicians Orthopedics/Trauma and Adult ReconstructionStart: 91-68-3416Zxhkf abstractingScanning Provider External [facility] CardiologyStart: 67-97-9194Lsepmraia encounterTa-Ginger Severino Physicians NeurologyComment on above:Neuro ApptStart: 10-21-2023 End: 70-29-6125Elpfiagspf and management of inpatientAROOJ TABASSUMProMedica Cavazos HospitalStart: 10-18-2023 End: 75-35-7423Ukthxddfbx and management of inpatientMELISSA BEN MCDONALD [facility] HospitalStart: 10-17-2023 End: 41-69-8705Ernmvgcmlt and management of inpatientSYED CLAUDIO Regalado NAQVIProMedica Cavazos HospitalStart: 10-15-2023 End: 10-48-4981Yexightjlb and management of inpatientSRINI K HEJEEBUProMedica Cavazos HospitalStart: 10-14-2023 End: 05-11-6171Hqhwcmtbbr and management of inpatientCARSON E OOSTRAProMedica Cavazos HospitalStart: 10-10-2023 End: 42-98-6436Dtvsmgcvhr and management of inpatientCARSON E OOSTRAProMedica Cavazos HospitalStart: 10-08-2023 End: 52-65-4278Mwknwurybh and management of inpatientJAMES J CASEProMedica Cavazos HospitalStart: 10-06-2023 End: 37-69-9261Zypjirpyab and management of inpatientCHRISTOPHER EWRYProMedica Cavazos HospitalStart: 10-06-2023 End: 94-98-5758Qieblrccmz and management of inpatientCHELSEA M MAINOUSProMedica Cavazos HospitalStart: 10-06-2023 End: 91-78-1557Xzgdeileao and management of inpatientCASSIDY MICHAEL EBYProMedica Cavazos HospitalStart: 10-05-2023 End: 12-70-8542Jtmpjegecp and management of inpatientRABBIA L SIDDIQIProMedica Cavazos HospitalStart: 10-05-2023 End: 41-86-4593Xtivmtnmgg and management of inpatientALI SAHLIEHProMedica Cavazos HospitalStart: 08-17-2023 End: 05-70-2873Ugvtsgvidq and management of inpatientDO Gustavo Salas Work Phone: [facility] Work Phone: Start: 07-10-2023 End: 69-25-4988Xaeldzhkgw and management of inpatientDO Gustavo Salas Work Phone: [facility] [facility] Work Phone: Start: 06-17-2023 End: 44-74-9941Cqizbnhjz department patient visitDO Gustavo Salas Work Phone: [facility]-Emergency Room Work Phone: Start: 04-01-2023 End: 98-28-8903Ohorazz encounter procedureJejacob Salas DO Work Phone: [facility] SystemStart: 18-57-8327adfynnexmdOFYQHBRWRKZC [facility] .Facility:X1Jbxtd: 35-76-3932sysyoqffvgMo. [facility] Facility:[id number]: 12-26-2022 End: 55-44-8023Ubpavztwhe and management of inpatientDO Gustavo Salas Work Phone: [facility] Work Phone: Start: 11-22-2022 End: 95-42-2505Acislzbzb department patient visitDO Gustavo Salas Work Phone: [facility]-Emergency Room Work Phone: Start: 05-31-2022 End: 09-12-8967Uopgqfubq department patient visitDO Gustavo Salas Work Phone: [facility]-Emergency RoomStart: 05-03-2022 End: 30-72-3059mttritonkxTrzqfb [facility] [place] Other [employer] Other Start: 02-80-8960Azflnkytb encounterAnupam JhaFPG PsychiatryStart: 04-24-2022 End: 59-21-2473mlxskibzvvPdbjax [facility] [place] Other [employer] Other Start: 33-07-7481Noiwqaylg encounterAnupam [facility] PsychiatryStart: 40-29-7439vuavpcrlovLbYoanna Charlie Mccartysonny BARAJAS Facility:[id number]: 03-08-2022 End: 71-39-7799ubrrpiycntEtvzeq Renetta Other [facility] [place] [employer] Other Start: 08-05-8012Vkpnkgctd encounterAnupam JhaFPG PsychiatryStart: 01-18-2022 End: 56-54-6978rzlaytixyuFvqmr Cesar Other [facility] [place] [employer] Other Start: 06-39-4285Qnghmkwrm encounterHeidi GastFPG Pulmonary DiseaseStart: 10-26-2021 End: 93-93-8033uquqwknowhYehtsd Renetta Other [facility] [place] [employer] Other Start: 52-55-7962Sypnskkgn encounterAnupam [facility] PsychiatryStart: 08-02-2019 End: 84-25-7501Zutzbhoywu and management of inpatientLAURA R [facility] Hospitaltart: 08-01-2019 End: 08-54-1611Pwtreiimsr and management of inpatientMalindatatyana Duong Sanchezi Work Phone: stvz 2C Ortho/Med SurgStart: 07-03-2018 End: 83-28-0994Cksrpye encounterBarwei CamarilloFacility:[facility] Procedures DateProcedureProcedure DetailPerforming ClinicianStart: 14-57-5100YAOVX CULTURE - FRMCGeneric External Data ProviderStart: 01-87-4617DERFC CULTURE 2Generic External Data ProviderStart: 83-96-0671UDHWS CULTURE 1Generic External Data ProviderStart: 68-47-5609HgvsiJet Hogan DO Work Phone: Start: 54-80-8928WLJPU CULTURE 2Generic External Data ProviderStart: 85-51-1969YXZIB CULTURE 1Generic External Data ProviderStart: 43-16-5373Zndjdhjr identified in Urine by CultureGeneric External Data Provider Start: 71-91-0344HYBXR CULTURE 2Generic External Data ProviderStart: 10-07-2024 Bacteria identified in Urine by CultureGeneric External Data ProviderStart: 36-99-5214Ntvclzot identified in Urine by CultureGeneric External Data Provider Start: 47-88-1274KJVIR CULTURE 2Generic External Data ProviderStart: 09-19-2024 BLOOD CULTURE 1Generic External Data ProviderStart: 76-47-9513Ivsyxz-up visit Follow-upBERKENDY BELCHERStart: 57-93-2556Abwqfl citrullinated peptide antibody APURVA SIERRAComment on above:Result Comment: Interpretation-------- <3 Negative >=3 Positive Performed By: #### ELEC #### [facility] ([id number]) [address] [place] [address], [address] [place], [place] [address]Vyhtr: 59-27-2331Toqth depression screening assessmentGinny Belcher RECORD PRODUCER[employer]AN Work Phone: Start: 46-78-8530Houfbnvyxslki of transfusion reaction DO Gustavo Salas Work Phone: Start: 48-85-9395Cgiporywwkc measurementDO Gustavo Salas Work Phone: Start: 38-92-9782Tkoyy culture for bacteriaDO Gustavo Salas Work Phone: Start: 26-23-7599XNYP-CoV-2, Influenza & RSV (PCR)DO Gustavo Salas Work Phone: Start: 94-34-9712Vkmdm cultureDO Gustavo Salas Work Phone: Start: 68-70-8796Xegwpsol tomography of abdomen and pelvis with contrastDO Gustavo Salas Work Phone: Start: 59-49-2047Xvzchp scan of lower limb veinsDO Gustavo Salas Work Phone: Start: 94-84-8073Ivsnq chest X-rayDO Gustavo Salas Work Phone: Start: 70-19-3584DJULPB UP IN CARDIOLOGYJENNA ENGLE Start: 58-00-2487UFQLCUQSXGJKX ECHO (TTE) COMPLETEGECHARLI LUIS ARMANDOCARMELLAtart: 01-27-2024 Echo tthrc r-t 2d w/wom-mode compl spec&colr dGeneric External Data Provider Start: 23-00-7876QOT 12-LEADGECHARLI RENOtart: 58-08-3974OIM panel - Blood by Automated countGECHARLI RENOtart: 62-04-5521Nfftoiryppp peptide B [Mass/volume] in BloodGECHARLI RENOtart: 85-58-3956FFXBJLGPQVYUL RATE, AUTOMATEDJENNA ENGLE Start: 10-01-6341Igpdbmydwrrrp metabolic 2000 panel - Serum or PlasmaGECHARLI RENOtart: 70-33-0262Lbdqjim of percutaneous transluminal coronary angioplasty History of PTCKeila Engle MD Work Phone: Start: 77-55-5832Mwbzp chest X-rayDO Gustavo Salas Work Phone: Start: 56-79-7541Amo routine ecg w/least 12 lds w/i&r Jenna Engle MD Work Phone: Start: 23-95-6657Kuoosi citrullinated peptide antibody APURVA SIERRAComment on above:Result Comment: Interpretation-------- <3 Negative >=3 Positive Performed By: #### CBC, BMP, 638[address]-5, 2777-1 #### [facility] ([id number]) [address] [place] [address], [address] [place], [place] [address]Erbwm: 85-67-4342Kwver depression screening assessmentTa-Ginger ValerioieStart: 01-35-0708Mgtyxk scan of lower limb veinsDO Gustavo Salas Work Phone: Start: 46-26-8051EH of abdomen and pelvis without contrastDO Gustavo Salas Work Phone: Start: 57-22-3397TL of chest without contrastDO Gustavo Baezman Work Phone: Start: 98-18-8479AL cervical spine without contrastDO Gustavo Salas Work Phone: Start: 62-25-4331KJ of head without contrastDO Gustavo Salas Work Phone: start: 41-56-2698Yxcvp x-ray of pelvis and lower extremityDO Gustavo Salas Work Phone: Start: 06-11-9286Kiljx chest X-rayDO Gustavo Salas Work Phone: start: 28-98-3359Qfxpvhpd tomography of abdomen and pelvis with contrastDO Gustavo Salas Work Phone: Start: 84-12-5706Sxicsnl microbial cultureDO Gustavo Maritza Work Phone: Start: 76-11-0818Cyxmf culture for bacteria, including anaerobic screenDO Gustavo Salas Work Phone: Start: 30-42-0586Sinsyttfctruv of transfusion reaction DO Gustavo Salas Work Phone: Start: 52-28-0301Tqbej cultureDO Gustavo Salas Work Phone: start: 73-63-6679XE cervical spine without contrastDO Gustavo Salas Work Phone: start: 36-94-4225FY of head without contrastDO Gustavo Salas Work Phone: Start: 95-99-6909Mayor chest X-rayDO Gustavo Salas Work Phone: Start: 45-93-8111Tjpys X-ray of left hipDO Gustavo Salas Work Phone: Start: 69-56-8033Hoszok scan of lower limb veinsDO Gustavo Salas Work Phone: Start: 61-35-9427Yqrxp chest X-rayDO Gustavo Salas Work Phone: Start: 72-57-2674Rdsmdkp of placement of stent for coronary artery diseaseS/P right coronary artery (RCA) stent placementJejacob Salas DO Work Phone: Start: 46-03-5377V-ray of left footDO Gustavo Salas Work Phone: Start: 40-71-6221Uvvma cultureDO Gustavo Salas Work Phone: Start: 90-86-1591T-ray of left ankleDO Gustavo Salas Work Phone: Start: 86-41-4417M-ray of left kneeDO Gustavo Salas Work Phone: start: 70-87-1069Gsmqwg scan of lower limb veinsDO Gustavo Salas Work Phone: start: 55-49-1852BT of hipDO Gustavo Salas Work Phone: Start: 71-77-9855Zyldhjwh tomography of abdomen and pelvis with contrastDO Gustavo Salas Work Phone: Start: 54-35-6421XX cervical spine without contrastDO Gustavo Salas Work Phone: start: 49-54-8630YK of head without contrastDO Gustavo Salas Work Phone: start: 84-08-0499CQ of thorax with contrastDO Gustavo Salas Work Phone: start: 28-28-1845Ggvcw X-ray of left hipDO Gustavo Salas Work Phone: Start: 99-68-7025Uskbw X-ray of right hipDO Gustavo Salas Work Phone: Start: 54-67-5822L-ray of lumbar spine, two or three viewsDO Gustavo Salas Work Phone: Start: 49-32-7512CKRMXZYQA PATIENTLAJUAN JOSE BROWNStart: 90-41-3890EKJL LOW FIBERLAJUAN JOSE BROWNStart: 17-40-0311OQYRJVWY OXYGEN THERAPY PROTOCOLLAJUAN JOSE BROWNStart: 39-74-2523Iddvw count complete auto&auto difrntl wbc CRYS CHANDRAKANTStart: 39-00-9900Yruiq count complete auto&auto difrntl wbcMahmud Al Furgani Work Phone: Start: 23-31-0204VGXBFHWGYPTXH NURSING CARE ORDER (SPECIFY)CRYS BARBOZAStart: 20-11-0702Gfpojedruk exam abdomen 1 viewLAJUAN JOSE BARBOZA Start: 94-69-9779RLXINFVI OXYGEN THERAPY PROTOCOLCRYS BROWNStart: 08-03-2019 Radiologic exam abdomen 1 viewNona Blake Work Phone: Start: 62-15-2572Liuwn count complete auto&auto difrntl wbcLAJUAN JOSE BARBOZAStart: 39-21-1450Ounvdlnbucpxm metabolic panelCRYS BARBOZA Start: 04-60-0785Waoqv count complete auto&auto difrntl wbcMahmud Al Furgani Work Phone: Start: 75-43-4054Kijejiefyvzjm metabolic panelMahmud Al Furgani Work Phone: Start: 56-83-6610YZGLNNPOX MONITORINGLAJUAN JOSE BARBOZAStart: 11-26-4383Ffjzuqdjntxmw metabolic panelLAJUAN JOSE BARBOZAStart: 69-18-4303RCQHRKQW SPECIMENLAJUAN JOSE BARBOZAStart: 04-01-9130SQNXZLO COMMUNICATIONLAJUAN JOSE BARBOZAStart: 78-07-0400FJZIBRTS OXYGEN THERAPY PROTOCOLCRYS BARBOZAStart: 08-02-2019 Comprehensive metabolic panelWashefali Chilel Work Phone: Start: 66-89-9121Stejn of lactateCRYS BARBOZAStart: 62-76-9199Suuyx count complete auto&auto difrntl wbcCRYS BARBOZAStart: 08-02-2019 Drug tst prsmv instrmnt chem analyzers pr dateCRYS BARBOZAart: 54-16-7896Klgfo of Brennan Ojeda Work Phone: Start: 90-26-7245Gbooh count complete auto&auto difrntl wbcMahmud Al Furgani Work Phone: Start: 28-56-5300YSHDEDXI REJECTIONMahmud Al Furgani Work Phone: Start: 22-71-5377Wlrxsfprbq exam abdomen 1 viewALEXJUAN JOSE BARBOZAStart: 05-00-4631JYKM INSERTIONWAJUAN JOSE BARBOZAart: 68-64-1502Qerqccvuwm exam abdomen 1 Jazmin Ojeda Work Phone: Start: 78-53-3067ZL CONSULT TO GENERAL SURGERYCRYS [facility]art: 31-14-0772SDVX CODECRYS [facility] Hospitalart: 47-28-3515RUVNJBPJ OXYGEN THERAPY PROTOCOLPrairie View Psychiatric Hospital: 44-69-3315GOIYCPS STATUS (DIRECT)CRYS BARBOZA Start: 02-25-2015 End: 03-25-2024H/O: colostomyColostomy statusGustavo Salas DO Work Phone: History of percutaneous transluminal coronary angioplastyHistory of PTCKeila Engle MD Work Phone: History of placement of stent for coronary artery diseaseS/P right coronary artery (RCA) stent placementRenae Ponce Plan of Treatment DateCare ActivityDetailAuthorStart: 54-86-4674Gwjobwotn vaccinationInfluenza Vaccine (#1)[facility] HealthcareStart: 77-31-0544Nvdpi screening for proteinDiabetes: Urine Protein ScreeningNONH HealthcareStart: 35-91-9246Llwqg BMI ScreeningAdult BMI ScreeningProL.V. Stabler Memorial Hospital Health SystemStart: 05-87-9184Zkledso ScreeningTobacco ScreeningProSumma Health Akron Campusca Health SystemStart: 79-03-1718Mmhlzlfrpt ScreeningDepression ScreeningECU Health Beaufort Hospitaltart: 02-02-2025 End: 74-41-6304Jaadmap encounter sucovqqzd58/08/2025 2:45 PM EDT Office Visit [facility] IM [address] [place] [address] Gustavo Salas, DO [address] [place] [address] [facility] IMStart: 95-23-6528Tfhddkmh identified in Urine by CultureUrine [facility] Medical Centertart: 67-18-4588Wnkne cultureMarymount Hospitaltart: 31-10-0504Rmbwjtsdioxdxhpv [facility] WomenStart: 01-20-2025 End: 88-81-5402Qkfaomm encounter rmvscwmyi30/26/2025 9:30 AM EDT Office Visit [facility] IM [address] [place] [address] Gustavo Salas, DO [address] [place] [address] [facility] IMStart: 12-23-2024 End: 80-81-6944Xwmmfqr encounter ficlxvypt98/26/2025 10:00 AM EST Office Visit [facility] IM [address] [place] [address] Gustavo Salas, DO [address] [place] [address] [facility] IMStart: 12-17-2024 End: 79-47-2555Rrtsudm encounter irfzxxdpl26/20/2025 11:00 AM EST Office Visit [facility] IM [address] [place] [address] Gustavo Salas, DO [address] [place] [address] [facility] IMStart: 35-25-7237Xxwawilj identified in Urine by CultureUrine [facility] Medical Centertart: 27-13-3821Fyict [facility] Hospitaltart: 11-05-2024 End: 36-61-9845Ohsezoy encounter gtvggfosk62/09/2025 3:30 PM EST Procedure Visit [facility] [address] [place] [address] Kalyan Barboza DPM [address] [address] [facility] CI PODIATRYStart: 10-92-8473Mwwut BMI Screening Adult BMI ScreeningECU Health Beaufort Hospitaltart: 10-13-2024 End: 41-06-9783Ocbydjo encounter hexvowdwv79/17/2024 2:30 PM EST Office Visit [facility] IM [address] [place] [address] Gustavo Salas, DO [address] [place] [address] [facility] IMStart: 10-08-2024 End: 34-57-9374Qowpekg encounter qtwluokft63/12/2024 4:10 PM EST Procedure Visit [facility] [address] [facility] [address] [place] [address] Kalyan Barboza DPM [address] [address] [facility] CI PODIATRYStart: 59-96-6399Btbnfbhdgnhtyyud EchocardiogramProtestant Deaconess HospitalStart: 10-06-2024 End: 89-86-2164Ydigcpp encounter /10/2024 2:30 PM EST Office Visit [facility] IM [address] [place] [address] Gustavo Salas, DO [address] [place] [address] ERIC SANCHEZ IMStart: 19-32-7131Usxkbusjet ScreeningDepression ScreeningWestern Reserve Hospital Health SystemStart: 56-65-9433Edtgmuj ScreeningTobacco ScreeningRegency Hospital Cleveland East SystemStart: 09-22-2024 End: 04-55-1001SIX panel - Blood by Automated countCBC Lab Routine Anemia due to stage 3a chronic kidney disease (HCC) (CMS/HCC) Expected: 09/22/2024 ( Approximate), Expires: 12/23/2024[facility] Work Phone: Comment on above:Expected: 09/22/2024 (Approximate), Expires: 12/23/2024Start: 09-22-2024 End: 02-20-9951Gcqibuxyr (Vitamin B12) [Mass/volume] in Serum or PlasmaVitamin B12 Lab Routine Anemia due to stage 3a chronic kidney disease (HCC) (CMS/HCC) Expected: 09/22/2024 (Approximate), Expires: 12/23/2024[facility] HealthcareComment on above:Expected: 09/22/2024 (Approximate), Expires: 12/23/2024Start: 09-22-2024 End: 01-93-7740Xqvioumzwanwf metabolic 2000 panel - Serum or PlasmaComprehensive metabolic panel Lab Routine Anemia due to stage 3a chronic kidney disease (HCC) (CMS/HCC) Expected: 09/22/2024 (Approximate), Expires: 12/23/2024[facility] HealthcareComment on above:Expected: 09/22/2024 (Approximate), Expires: 12/23/2024Start: 09-22-2024 End: 06-35-9785Vzwnpxmq [Mass/volume] in Serum or PlasmaFerritin Lab Routine Anemia due to stage 3a chronic kidney disease (HCC) (CMS/HCC) Expected: (Approximate), Expires: 12/23/2024[facility] HealthcareComment on above:Expected: 09/22/2024 (Approximate), Expires: 12/23/2024Start: 09-22-2024 End: 45-91-6894Mftm and Iron binding capacity panel - Serum or PlasmaIron and TIBC Lab Routine Anemia due to stage 3a chronic kidney disease (HCC) (CMS/HCC) Expected: 09/22/2024 (Approximate), Expires: 12/23/2024[facility] HealthcareComment on above:Expected: 09/22/2024 (Approximate), Expires: 12/23/2024Start: 09-22-2024 End: 96-28-9315[place] 1996 panel - Serum or PlasmaLipid panel Lab Routine Mixed hyperlipidemia (CMS/HCC) Anemia due to stage 3a chronic kidney disease (HCC) (CMS/HCC) Expected: 09/22/2024 (Approximate), Expires: 12/23/2024[facility] Healthcare Comment on above:Expected: 09/22/2024 (Approximate), Expires: 12/23/2024Start: 09-22-2024 End: 89-26-2675Bfefdoa encounter uxbfqeppy50/26/2024 2:00 PM EST Office Visit [facility] [address] [place] [address] Gustavo Salas DO [address] [place] [address] ERIC SANCHEZ IMStart: 09-22-2024 End: 59-62-0625Iyvxesmjtxv [Units/volume] in Serum or PlasmaTSH Lab Routine Anemia due to stage 3a chronic kidney disease (HCC) (CMS/HCC) Expected: 09/22/2024 (Approximate), Expires: 12/23/2024[facility] HealthcareComment on above: Expected: 09/22/2024 (Approximate), Expires: 12/23/2024Start: 09-22-2024 End: 10-00-1875Xxxvbidrc (T4) free [Mass/volume] in Serum or PlasmaT4, free Lab Routine Anemia due to stage 3a chronic kidney disease (HCC) (CMS/HCC) Expected: 09/22/2024 (Approximate), Expires: 12/23/2024[facility] HealthcareComment on above: Expected: 09/22/2024 (Approximate), Expires: 12/23/2024Start: 09-22-2024 End: 47-01-6124Uynwdobufbyvwfos (T3) Free [Mass/volume] in Serum or PlasmaT3, free Lab Routine Anemia due to stage 3a chronic kidney disease (HCC) ([facility]/HCC) Expected: 09/22/2024 (Approximate), Expires: 12/23/2024NOMS HealthcareComment on above:Expected: 09/22/2024 (Approximate), Expires: 12/23/2024Start: 09-10-2024 End: 11-80-2909Tzlcyde encounter hivyismvp59/14/2024 2:00 PM EST Procedure Visit [facility] [address] [facility] [address] [place] [address] Kalyan Barboza DPM [address] [address] [facility] CI PODIATRYStart: 07-24-2024 End: 84-14-7717Vbcpwvz encounter slgoqdxcc24/27/2024 3:30 PM EDT Office Visit [facility] [address] [place] [address] Kalyan Barboza DPM [address] [address] [facility] SC PODStart: 07-24-2024 End: 39-78-9070Tmvxmxi encounter uyzbbddaq66/27/2024 11:40 AM EDT Procedure Visit [facility] [address] [place] [address] [phone] Kalyan Barboza DPM [address] [address] [facility] PODStart: 07-23-2024 End: 21-43-3192Xaeutosc Itvbnmf8807/23/2024 1:20 PM EDT Clinical Support [facility] [address] [facility] [address] [place] [address] Kalyan Barboza, MELISAS [address] [place] [address] Other specified disorders of synovium, left ankle and foot (Primary Dx); Right Achilles tendinitis; Venous insufficiencyNOMS CI P[facility]IATRY Comment on above:Other specified disorders of synovium, left ankle and foot (Primary Dx); Right Achilles tendinitis; Venous insufficiencyStart: 07-02-2024 End: 19-83-6017Ztrgibw encounter /05/2024 1:20 PM EDT Office Visit [facility] [address] [facility] 120 [place] [address] Kalyan Barboza DPM 3[address] [facility] 5 [place] [address] [facility] CI PODIATRYStart: 25-22-6513EMKIR-19 Vaccine ( season)COVID-19 Vaccine ()[facility] Start: 18-18-9106Gqonnadty vaccinationNOMS HealthcareStart: 05-11-2024 End: 49-62-2225Vtmlzay encounter wpxrquqvw83/15/2024 10:30 AM EDT Office Visit [facility] [address] [place] [address] Markos Ortega MD [address] [facility] [place], [place] [phone] (Work) [facility]/Sleep MedicineStart: 21-76-6999Tpmggnbfs for osteoporosisBone Density ScanProtestant Deaconess HospitalStart: 04-27-2024 End: 31-45-3359Ijbrplb encounter hbkrcrusn96/01/2024 1:[address] [facility] [address] [place] [address] [phone] Hospital - CT ImagingStart: 06-05-2024Medicare Annual Wellness (AWV)Medicare Annual Wellness (AWV)[facility] HealthcareStart: 84-11-0766IvtxhvmvyMarymount Hospitaltart: 02-18-2024 [facility]: 34-49-1805GwsxtexkeMarymount Hospitaltart: 47-67-2539Uwyrpdwgi culture of sputumMarymount Hospitaltart: 29-22-6278QnkhjbfiwMarymount Hospitaltart: 02-14-2024 Referral to Social ServicesMarymount Hospitaltart: 02-14-2024 [facility]: 32-48-4832Zlveodbt admissionMarymount Hospitaltart: 51-03-1279Jqsyvkhh identified in Blood by Culture [facility]tart: 24-42-7048Biwwcyoo identified in Urine by CultureMarymount Hospitaltart: 88-00-9902Hlejo culture for bacteria, including anaerobic screenBlood CultureMarymount Hospitaltart: 56-63-5578Avfbov scan of lower limb veinsUS venous duplex LE RT [facility] Hospitaltart: 37-77-5807DC Lower extremity vein - rightMarymount Hospitaltart: 02-10-2024 End: 64-07-4213Zmshvnv encounter isdywthmt07/15/2024 12:30 PM EDT Office Visit [address] [place] [address] Jenna Engle MD [address] [place] [address] [address] [place] [address] [facility]Start: 01-27-2024 End: 99-14-8804Uviluxv encounter macyfukic81/01/2024 1:30 PM EDT Appointment [place] [address] [place] [address] [facility]Start: 49-57-2325NPTIP-19 Vaccine ( season)COVID-19 Vaccine ( season)[facility] HospitalLocaModa Real [employer] Technologies SystemStart: 01-10-2024 End: 59-64-1482Vrcbavw encounter zwtidfzck48/ 2:00 PM EDT Office Visit [facility] [address] [place] [address] William Gallagher MD [address], [facility] [address] [place] [address] [facility] NeurologyStart: 01-06-2024 End: 26-50-8016UPV panel - Blood by Automated countCBC Lab Routine Shortness of breath Expected: 01/06/2024 (Approximate), Expires: 01/05/2025Un[facility] Work Phone: Comment on above:Expected: 01/06/2024 (Approximate), Expires: 01/05/2025Start: 01-06-2024 End: 48-29-6557Cbglqjauufiwe metabolic 2000 panel - Serum or PlasmaComprehensive Metabolic Panel Lab Routine Shortness of breath Expected: 01/06/2024 (Approximate), Expires: 01/05/2025Un[facility] Work Phone: Comment on above:Expected: 01/06/2024 (Approximate), Expires: 01/05/2025Start: 01-06-2024 End: 26-24-3626Utzjfefhrnb sedimentation rateSedimentation Rate Lab Routine Shortness of breath Expected: 01/06/2024 (Approximate), Expires: 01/05/2025 [facility] Work Phone: Comment on above:Expected: 01/06/2024 (Approximate), Expires: 01/05/2025Start: 01-06-2024 End: 92-27-2829Zignenjkwku peptide B [Mass/volume] in BloodB-Type Natriuretic Peptide Lab Routine Shortness of breath Expected: 01/06/2024 (Approximate), Expires: 01/05/2025UnMary [facility] Work Phone: Comment on above:Expected: 01/06/2024 (Approximate), Expires: 01/05/2025Start: 01-06-2024 End: 33-86-1862XI Heart TransthoracicTransthoracic Echo Complete Echocardiography Routine Shortness of breath Expected: 01/06/2024 (Approximate), Expires: 01/05/2026[facility] Service Area Work Phone: Comment on above:Expected: 01/06/2024 (Approximate), Expires: 01/05/2026Start: 01-06-2024 End: 63-22-8590FR Chest 2 ViewsXR chest 2 views Imaging Routine Shortness of breath Expected: 01/06/2024 (Approximate), Expires: 01/05/2025[facility] Work Phone: Comment on above:Expected: 01/06/2024 (Approximate), Expires: 01/05/2025Start: 12-30-2023 End: 85-41-0856Xryhkye encounter duspnpiat60/04/2024 11:15 AM EST Office Visit [facility] [address] [facility] [address] [place] [address] Gustavo Salas DO [address] [facility] [address] [place] [address] [facility] IMStart: 12-16-2023 End: 84-08-2464Aavkprc encounter zeexspzkd33/19/2024 11:30 AM EST Office Visit [facility] [address] [place] [address] Yovani Glover, ETHAN [address] [place] [address] [facility] CardiologyStart: 12-09-2023 End: 76-62-6226Tfqfpyxh identified in Urine by CultureUrine culture (clean catch) Microbiology Routine Urinary tract bacterial infections Expected: 2023 (Approximate), Expires: 12/09/2024N[facility] HealthcareComment on above:Expected: 12/09/2023 (Approximate), Expires: 12/09/2024Start: 12-09-2023 End: 09-17-2340NTZ W Auto Differential panel - BloodCBC and differential Lab Routine Essential hypertension (CMS/HCC) Expected: 12/09/2023 (Approximate), Expires: 12/09/2024[facility] Work Phone: Comment on above:Expected: 12/09/2023 (Approximate), Expires: 12/09/2024Start: 12-09-2023 End: 07-38-4815Bryhiyyexirkm metabolic 2000 panel - Serum or PlasmaComprehensive metabolic panel Lab Routine Essential hypertension (CMS/HCC) Expected: 12/09/2023 (Approximate), Expires: 12/09/2024[facility] HealthcareComment on above: Expected: 12/09/2023 (Approximate), Expires: 12/09/2024Start: 12-09-2023 End: 85-83-7331Zbbaskrco [Mass/volume] in Serum or PlasmaMagnesium Lab Routine Stage 3a chronic kidney disease (HCC) (CMS/HCC) Expected: 12/09/2023 (Approxim ate), Expires: 12/09/2024[facility] HealthcareComment on above:Expected: 12/09/2023 (Approximate), Expires: 12/09/2024Start: 11-11-2023 End: 07-03-0456Oonwjgv encounter swdorbzme03/15/2024 9:15 AM EST Office Visit [facility]Tra[facility] and Adult Reconstruction [facility] [address] [place] [address] Jose Martin Galicia MD [address] [place] [address], [address] [place] [address] [facility]/Trauma and Adult ReconstructionStart: 11-05-2023 End: 86-33-3138Ojeeryj encounter eekvxwxxn09/09/2024 12:30 PM EST Office Visit [facility] [address] [place] [address] Yovani Glover PA-C [address] [place] [address] [facility] CardiologyStart: 43-81-4933HzcusnztpMarymount Hospitaltart: 54-39-6767Axspa culture for bacteriaStool CultureMarymount Hospitaltart: 73-96-7562Ougmk chemistryMarymount Hospitaltart: 82-69-0054Wbrltf scan of lower limb veinsUS venous duplex LE [facility] Hospitaltart: 38-27-1525PbpdqqwzfMarymount Hospitaltart: 63-95-1073Ojhwuphq to [facility]tart: 72-86-5149Nzkzcfff admission [facility]: 54-83-6726Kpfrmmou therapy procedure [facility]: 90-89-5308Pyevaixz to occupational therapistMarymount Hospitaltart: 56-26-7586YjshinmfoMarymount Hospitaltart: 27-85-8498Wimcihdf identified in Stool by CultureMarymount Hospitaltart: 08-38-6456JfcgsyhevMarymount Hospitaltart: 68-97-9698Gcvqjdzj identified in Blood by CultureMarymount Hospitaltart: 89-89-9142Zyzqm culture for bacteria, including anaerobic screen Blood CultureMarymount Hospitaltart: 63-40-1295SumgorvagMarymount Hospitaltart: 84-14-6166Etykakjv identified in Blood by Culture Blood CultureMarymount Hospitaltart: 21-81-9843Ujjfwqop identified in Urine by CultureUrine [facility] Start: 51-15-7113Qnnwx culture for bacteria, including anaerobic screenBlood CultureMarymount Hospitaltart: 86-01-4980Rfyuugmw admission [facility]: 03-12-9542Pehtrgqaeu A1c measurement Diabetes: Hemoglobin G1TOFCXSaint John's Health SystemStart: 38-08-1291PhftckprsMarymount Hospitaltart: 46-80-8696Erhcvjbz admissionMarymount Hospitaltart: 97-53-2109Epxxpksx to Social [facility] Systemtart: 13-01-9055QvodgfxhyMarymount Hospitaltart: 12-26-2022 [facility]: 97-44-1114Onaqmpewld monitoring Creatinine [facility] Hospitalart: 12-15-0290Mblxphrqr monitoring Potassium monitoringPeoples Hospital: 00-74-7995Lgdwtl Wellness Visit (AWV)Annual Wellness Visit (AWV)[facility]: 14-40-7515Cvvwqyoif vaccinationFlu vaccine (#1)[facility]: 81-65-5042UYYK (modify frequency per FRAX score)DEXA (modify frequency per FRAX score)[facility]: 83-87-2743Rmoa Risk ScreeningFall Risk ScreeningECU Health Beaufort Hospitaltart: 98-85-8973Ghcqqmibipao 65+ years Vaccine (1 of 2 - PCV13) Pneumococcal 65+ years Vaccine (1 of 2 - PCV13)[facility]: 56-18-6373Uvkcsmyoxlugnx of varicella zoster vaccineZoster (Shingles) Vaccine (1 of 2)[facility]: 19-12-7105Kgwwyl cancer screenBreast cancer screenPeoples Hospital: 74-23-2606Pbmoc cancer screen colonoscopyColon cancer screen colonoscopyPeoples Hospital: 86-46-4370Icshedwf Vaccine (1 of 2)Shingles Vaccine (1 of 2)[facility]: 86-72-4139Pkwcbi Vaccines (1 of 2)Zoster Vaccines (1 of 2)[facility]: 36-87-8816BFfM/Tdap/Td Vaccines (1 - Tdap)DTaP/Tdap/Td Vaccines (1 - Tdap) [facility]: 07-42-0337YVuQ,Tdap and Td Vaccines (1 - Tdap)DTaP,Tdap and Td Vaccines (1 - Tdap)[facility]: 31-12-1152YQsH/Tdap/Td vaccine (1 - Tdap)DTaP/Tdap/Td vaccine (1 - Tdap)[facility]: 42-18-9778Hdkxz screening for proteinDiabetes: Urine Protein ScreeningSSM DePaul Health Center: 87-86-5718Acuhq BMI Follow Up PlanAdult BMI Follow Up PlanProUC West Chester Hospitaltart: 12-34-0153Kuzmwemx mellitus screeningDiabetes ScreeningProtestant Deaconess HospitalStstanardsville: 1963 Hepatitis C screeningHepatitis C ScreeningProtestant Deaconess Hospital Start: 26-68-9532Bmrgxzid screeningDiabetes: Retinopathy ScreeningSSM DePaul Health Center: 47-00-7542Ibqrk screenLipid screenPeoples Hospital: 02-23-1170Qijgvwkoxs measurementCreatinine [facility] TulsaStstanardsville: 57-31-4410Vdwwixmkv C screenHepatitis C screenUniversity Hospitals Cleveland Medical Centerart: 65-19-2175Yyusw panelLipid PanelProtestant Deaconess HospitalStart: 01-10-1946Medicare Annual Wellness VisitMemorial Health System [facility]: 43-69-6658Elivfkojm measurementPotassium [facility] Start: 02-07-8410Ypvwsgd CounselingTobacco CounselingRegency Hospital [facility] System Anion gap measurementBrecksville Va / Crille HospitalBacteria identified in Urine by CultureURINE CULTURE, ROUTINE Lab Routine 10/07/2024 2:58 AM ESTNOMS HealthcareBasophils [#/volume] in Blood by Automated [facility] HospitalBasophils/100 leukocytes in Blood by Automated [facility] HospitalBLOOD CULTURE 1BLOOD CULTURE 1 Lab Routine 09/19/2024 12:22 PM ESTNOMS HealthcareBLOOD CULTURE 1BLOOD CULTURE 1 Lab Routine 12/13/2024 5:47 PM ESTNOMS HealthcareBLOOD CULTURE 1BLOOD CULTURE 1 Lab Routine 12/17/2024 3:50 PM ESTNOMS HealthcareBLOOD CULTURE 2BLOOD CULTURE 2 Lab Routine 09/19/2024 12:23 PM ESTNOMS HealthcareBLOOD CULTURE 2BLOOD CULTURE 2 Lab Routine 10/12/2024 7:25 PM ESTNOMS HealthcareBLOOD CULTURE 2BLOOD CULTURE 2 Lab Routine 12/13/2024 5:52 PM ESTNOMS HealthcareBLOOD CULTURE 2BLOOD CULTURE 2 Lab Routine 12/17/2024 3:55 PM ESTNOMS HealthcareEosinophils [#/volume] in BloodBrecksville Va / Crille HospitalEosinophils/100 leukocytes in Blood by Automated count [facility] / Crille HospitalErythrocyte distribution width [Ratio] by Automated [facility] HospitalErythrocytes [#/volume] in Blood [facility] Crille HospitalHematocrit [Volume Fraction] of [facility] Mary HospitalHemoglobin [Mass/volume] in BloodBrecksville Va / Crille HospitalInitiate Oxygen Therapy ProtocolInitiate Oxygen Therapy Protocol Respiratory Care Routine Daily until discontinued starting 08/02/2019[place] [facility] [place]:Daily until discontinued starting 08/02/2019 Leukocytes [#/volume] corrected for nucleated erythrocytes in Blood by Automated counBrecksville Va / Crille HospitalLeukocytes [#/volume] in [facility] Mary HospitalLymphocytes [#/volume] in Blood by Automated count [facility] Cr[facility] HospitalLymphocytes/100 leukocytes in Blood by Automated [facility] HospitalMCH [Entitic mass] by Automated countBrecksville Va / Crille HospitalMCHC [Mass/volume] by Automated count [facility] Cr[facility] HospitalMCV [Entitic volume] by Automated count [facility] / Crille HospitalMonocytes [#/volume] in Blood by Automated [facility] HospitalMonocytes/100 leukocytes in Blood by Automated [facility] HospitalNeutrophils [#/volume] in Blood by Automated [facility] HospitalNeutrophils/100 leukocytes in Blood by Automated [facility] HospitalNucleated erythrocytes [Presence] in Blood by Automated [facility] HospitalPatient EducationPromedica Defiance Regional Hospital Ctr Work Phone: Patient referralPromedica Defiance Regional Hospital Ctr Work Phone: Platelet mean volume [Entitic volume] in Blood by Automated [facility] HospitalPlatelets [#/volume] in Blood [facility] End: 51-08-6529JPPYYWNK SPECIMENPREVIOUS SPECIMEN Lab Routine Once for 1 Occurrences starting 08/02/2019 until 08/02/2019[facility], PATRICEComment on above:Once for 1 Occurrences starting 08/02/2019 until 08/02/2019PREVIOUS SPECIMENPREVIOUS SPECIMEN Lab Routine 08/02/2019 9:43 AM [place], [place] End: 04-59-3297Prdrcptqk function test Complete PFT w/ BD (Spirometry (Flow Volume Loop) pre/post short acting bronchodilator w/ DLCO (diffusion study) and Lung Volume)Pulmonary function test Complete PFT w/ BD (Spirometry (Flow Volume Loop) pre/post short acting bronchodilator w/ DLCO (diffusion study) and Lung Volume) PFT Routine Chronic obstructive pulmonary disease, unspecified COPD type ([facility]) 1 Occurrences starting 05/01/2024 until 05/01/2025[facility] Work Phone: Comment on above:1 Occurrences starting 05/01/2024 until 05/01/2025Urinalysis complete panel - UrineUrinalysis with microscopic Lab Routine Urinary tract bacterial infections Stage 3a chronic kidney disease (HCC) ([facility]) Ordered: 12/09/2023[facility] SystemComment on above:Ordered: 12/09/2023[facility] [place] [facility] Routine 02[facility]01[facility]25 12[facility] End: 48-43-5255[facility] Work Phone: Comment on above:Once for 1 Occurrences starting 01/27/2024 until 01/27/2024 Immunizations Immunization DateImmunizationNotesCare UwmevykfCmxmywbr39-76-2973etjqbfyum virus vaccine, unspecified formulationGeneric ProviderSaint John's Health SystemTsvlkbynno78-60-3332 Influenza, High-dose, QuadrivalentTa-Ginger [facility]ie[facility] 14-66-9554jbvywjzlu virus vaccine, unspecified formulationBernadine Zirker RECORD PRODUCER[employer] Work Phone: [facility] CenterTicrlt00-32-0070uuwzmnqztl skin test; unspecified formulationBernadine Zirker RECORD PRODUCER[employer]SHEET [employer] FOREMAN Work Phone: [facility] CenterPfbcci36-12-6815iyfzvldrch skin test; unspecified formulationBernadine Zirker RECORD PRODUCER[employer]SHEET [employer]EMAN Work Phone: [facility] CenterRjoxda26-92-6546KTTS-LTZ-9 (COVID-19) vaccine, mRNA, spike protein, LNP, bivalent, preservative free, 30 mcg/0.3 mL dose, monserrat-sucrose formulationGustavo Salas DO Work Phone: [facility] SystemArokmlvtkc88-68-2887gokxeybpse skin test; unspecified formulationBernadine David RECORD PRODUCER[employer]SHEET METAL FOREMAN Work Phone: [facility] CenterOckxzl95-55-7193yhjeqdmcmm skin test; purified protein derivative solution, intradermalGustavo Salas DO Work Phone: noSt. Joseph Medical CenterQuenkgxcaz10-53-4508euzeaaapsi skin test; unspecified formulationBernadine Zirker RECORD PRODUCER[employer]SHEET MET[employer] FOREMAN Work Phone: [facility] CenterPbhswh98-23-1143pnhfvneau, high dose seasonal, preservative-freeGustavo Salas DO Work Phone: [facility] SystemVacrixmesq99-59-9862Lkdzbrwqc, High-dose Seasonal, Quadrivalent, Preservative FreeGustavo Salas DO Work Phone: [facility] SystemNkfwrqbmrc93-31-2821kqvfgqchljkv polysaccharide vaccine, 23 valentJejacob Salas DO Work Phone: [facility] SystemHorftmibbm28-29-3776LKELQ-77 ModernaHeidi Cesar Other noSt. Joseph Medical CenterAcourdyugq22-41-4964FPMSH-44 ModernaHeidi Cesar Other [facility] SystemPgkaqfuhps50-67-9577mzwmvmepk, high dose seasonal, preservative-freeGustavo Salas DO Work Phone: noSt. Joseph Medical CenterAayjdqyhgj41-95-9024plimfeuty, seasonal, injectableJenna Engle MD Work Phone: [facility] Work Phone: [phone] trivalent influenza vaccine, adjuvanted, preservative freeGustavo Salas DO Work Phone: [facility] SystemAkzenqkkob68-43-6536pixfzpapf, high dose seasonal, preservative-freeJorge A Jackson Other [facility] SystemCtbcxdwylq80-39-5997erhidrbvj virus vaccine, unspecified formulationDO Gustavo Salas Work Phone: [facility]09-16-2018Influenza, High-dose, QuadrivalentJeffrey Maritza DO Work Phone: [facility] SystemNosbdwiynk29-75-0600zcprdavyf, high dose seasonal, preservative-freeAnupam Renetta Other [employer] Other [id number] virus vaccine, unspecified formulationDO Gustavo Salas Work Phone: [facility]10-05-2017Influenza, High-dose, QuadrivalentCorwinffrey Maritza DO Work Phone: [facility] SystemAziopwlaxs31-84-0222ggdwytxainct conjugate vaccine, 13 valentAnupam Renetta Other [facility] SystemSvfldqxjac84-07-9855rxupnlsmx, high dose seasonal, preservative-freeAnupam Renetta Other [employer] Other [id number] virus vaccine, unspecified formulationDO Gustavo Salas Work Phone: [facility]09-28-2016Influenza, High-dose, QuadrivalentGustavo Maritza DO Work Phone: [facility] SystemQxrufbxfyh43-57-0929wbebchnzb, high dose seasonal, preservative-freeAnupam Renetta Other [employer] Other [id number] virus vaccine, unspecified formulationDO Gustavo Salas Work Phone: [facility]10-26-2015Influenza, High-dose, QuadrivalentCorwinclydeed Maritza DO Work Phone: [facility] SystemJudxbtwijq49-75-4852afppopwwwkyk polysaccharide vaccine, 23 valMeet Engle MD Work Phone: [facility] Work Phone: [phone]mkk, seasonal, injectableJejacob Salas DO Work Phone: [facility] SystemBraoxdxquz80-28-2179ymvpjcbog, injectable, quadrivalent, contains preservativeAnupam Renetta Other [facility]12-02-2013influenza, injectable, quadrivalent, contains preservativeAnupam Renetta Other [facility]02-07-2011 pneumococcal conjugate vaccine, 7 valentAnupam Renetta Other [employer] Other 547709-95-2883xmzixaekoddr Conjugate, unspecified formulationDO Gustavo Salas Work Phone: [facility] Payers DatePayer CategoryPayerPolicy [id number] 2024Medicare [facility] [id number] [id number]-agh [id number] Health InsuranceUNITED HEALTHCARE DUAL COMPLETE [facility]UAL [facility] [id number] 2023- Present [address] [address] [place] [address] [id number] 2023Medicare [id number] 2023Medicare (Managed Care) [id number] 2022Medicaid [id number] [id number] 2018 Private Health [id number] [id number] 2015MedicaidMEDICAID [place] MEDICAID [facility] DEPT OF JOB xxxxxxxxxxxx 2014-Present [phone] [address] [place] [address] xxxxxxxxxxxx [id number] 2015Medicare [id number] 2015MedicareMEDICARE MEDICARE PART A AND B xxxxxxxxxxx 2014-Present [phone] [address] [address] [place], [id number] 1.2.840.517091.1.13.239.2.7.3.173[id number] 2.840.1.614168.3.57[id number] 2.840.1.481382.3.57[id number] 2.840.1.692226.3.579.2.60258-78-6971Iymnxlu0629325 2.840.1.244087.3.579.2.[id number] 2.16.840.1.907713.3.57[id number] 2.16.840.1.348078.3.579.2.[id number] 2.16.840.1.575512.3.579.2.90199-07-8989Wbneecc16498764 2.16.840.1.782271.3.57[id number] 2.16.840.1.820835.3.57[id number] 2.16840.1.536409.3.579.2.345848-68-6837Ueimexn08706661 2.16840.1.556065.3.579.2.682722-37-1844Xkvhohv64815334 2.16.840.1.326903.3.579.2.715718-04-4164Jiaxqvf86933769 2.16.840.1.975155.3.579.2.501153-36-2756Lqqwbnf12063857 2.16840.1.097279.3.579.2.759821-79-0908Pennpvx2257175 2.16.840.1.886163.3.579.2.477555-84-6873Fqlqshn1550818 2.16840.1.799450.3.579.2.556880-80-3621Jhoobhp4166650 2.16.840.1.490057.3.579.2.364983-96-5852Epkslhj5785262 2.16840.1.092997.3.579.2.356276-93-2610Iirlvjv8775560 2.16.840.1.065201.3.579.2.025466-79-8935Uhkmrox9472521 2.16.840.1.366401.3.579.2.987888-34-6246Xjkwogp4903416 2.16.840.1.897074.3.579.2.580001-98-0252Parjcwu3687855 2.16.840.1.306960.3.579.2.929154-55-1012Sezpbzv6598938 2.16.840.1.646529.3.579.2.662015-06-7890Jksmkfo6127674 2.16.840.1.608016.3.579.2.588084-19-3996Vztknpw8202139 2.16.840.1.119849.3.579.2.638497-52-8884Rmyowse4509150 2.16.840.1.004982.3.579.2.809858-06-2461Iuobrvg4430966 2.16.840.1.273888.3.579.2.615905-41-0122Ktqdwlp2363606 2.16.840.1.888535.3.579.2.112724-14-2648Lfkplaz0285574 2.16.840.1.980620.3.579.2.182378-23-6007Zcpufto6269260 2.16.840.1.603678.3.579.2.185044-50-8170Flbldzc7483120 2.16.840.1.406790.3.579.2.487039-74-0199Dmurkdt6376290 2.16.840.1.257823.3.579.2.812945-42-2147Xiyfmqq1411686 2.16.840.1.141848.3.579.2.136863-02-0580Vmjnyye6430668 2.16840.1.511462.3.579.2.053327-67-2693Arqaxjt85836905 2.16840.1.635124.3.579.2.695141-66-8175Aoqnong60520362 2.16840.1.048186.3.579.2.313393-56-2782Ozphqwv60549462 2.840.1.386833.3.579.2.798232-98-1667Uekxqjl23038634 2.0.1.735223.3.579.2.871605-55-9184Nanhevz89078993 2.0.1.635406.3.579.2.520250-03-9913Cnxceke23545317 2.0.1.929812.3.579.2.508322-10-7363Panojsa18471369 2.0.1.758806.3.579.2.992687-87-0713Kxtuodg30914302 2.0.1.562260.3.579.2.011756-70-8761Flfibpe53881581 2.840.1.456807.3.579.2.332382-70-8570Ulyrpzw07777400 2.840.1.226761.3.579.2.459861-05-1099Fkkyfnr23881448 2.840.1.264428.3.579.2.575493-54-6111Gfvqjij69054030 2.840.1.677755.3.579.2.144998-38-9455Pejcjqu50943961 2.16.840.1.221585.3.579.2.224294-35-2382Qdldbyw5104705 2.0.1.079332.3.579.2.253207-49-6725Ceiwrop4702740 2.0.1.923360.3.579.2.497762-50-1262Jmtfhkw2807661 2.0.1.210179.3.579.2.062838-07-5557Wplciml0854585 2.0.1.679976.3.579.2.774108-50-9321Ylveeia9202447 2.0.1.856150.3.579.2.833934-73-6557Qzzxird5890871 2..1.965684.3.579.2.977072-76-1661Avgqire4294270 2..1.932621.3.579.2.989577-52-8914Ogpbeya6539257 2..1.381337.3.579.2.544997-23-6210Oqrqqfq6238402 2..1.513940.3.579.2.114880-97-2559Bboglqg9731568 2..1.437[id number] 2..1.270264.19Unknown [facility] [id number] 9w5t6135-rg57-5n80-g769-135p86s7z2i5Nweipnk [id number] 2.840.1.281758.3.579.2.865Aciyuck48179313 2.840.1.314194.3.579.2.487Mdnkjjx07387186 2.0.1.491808.3.579.2.531 Social History DateTypeDetailFacilityStart: 06-23-2012 End: 91-96-5468Qflptws smoking status NHISFormer smokerMarymount Hospitaltart: 10-16-1974 End: 61-04-8014Adeavny of tobacco useCurrent smokerPeoples Hospital: 10-16-1974 End: 89-12-5199Dbnplqq of tobacco useCigarette SmokerPeoples Hospital: 06-23-2012 End: 85-78-4910Pujadrt intakeNoPeoples Hospital: 47-84-9788Drgkqoo Commentstopped 20 yearsPeoples Hospital: 39-52-5405Qlb Assigned At BirthNot on filePeoples Hospital: 74-49-4104Shl Assigned At BirthFelong island college hospitale [facility] Hospitaltart: 08-23-2023 End: 52-57-6332Mnncquz smoking status NHISSmokes tobacco dailyNOMS Healthcare Start: 04-26-2023 End: 07-07-7691Mrqwhjbsgn smoked current (pack per day) - Reported0.5NOMS HealthcareHistory of tobacco usePassive smokerNONH HealthcareStart: 08-23-2023 End: 13-02-1615Ygwfnou use and exposureSmokeless tobacco non-userNOMS Healthcare Start: 12-09-2023 End: 64-46-5306Kptxkgm intakeLifetime non-drinker (finding)[facility] HealthcareHow often to you have a drink containing alcohol?NeverNOMS HealthcareStart: 49-20-9612Yjd many standard drinks containing alcohol do you have on a typical day?Patient does not drinkNOMS HealthcareStart: 02-99-3229Saivmhx CommentECW [noted 03/13/23] : Former smoker ; quit date 01/26/2022NONH HealthcareStart: 38-91-2665Eyxvzng Commentcaffeine 2-3 cups/day; pepsi 2 cans/dayNOMS Healthcare Start: 12-27-2023 End: 55-73-9995Nkmqlwed to SARS-CoV-2 (event)Not [facility]: 81-16-9713Agivbfb smoking statusLight tobacco smoker (finding) [facility] HospitalyStart: 02-10-2024 Tobacco smoking status NHISOccasional tobacco smokerProtestant Deaconess Hospital Work Phone: Har the electric, gas, oil, or water company threatened to shut off services in your home in past 12[facility] [employer] [facility] Divisiontart: 04-08-2019 End: 37-73-9017PjlWsjvpv (finding)[employer] Procedure CodeEquipment CodeEquipment Original TextEquipment IdentifierDatesCL CLOSURE DEVICE EXOSEAL 6FFDAStart: 19-24-6354CP STENT KELLY 2.75 X 23FDAStart: 23-77-1803Faryzkfwdqu bone screw, non-bioabsorbable, non-sterile ()[id number] FDAStart: 73-87-3562Euibc nail, sterile ()[id number] FDAStart: 37-84-3972Hdycka blade ()[id number] FDAStart: 42-62-1026EZ CLOSURE DEVICE EXOSEAL 6FFDAStart: 44-73-5451MQ STENT KELLY 2.75 X 23FDAStart: 12-93-1580DX CLOSURE DEVICE EXOSEAL 6FFDAStart: 67-85-3322VQ STENT KELLY 2.75 X 23FDAStart: 20-84-3462TI CLOSURE DEVICE EXOSEAL 6FFDAStart: 43-81-2369KS STENT KELLY 2.75 X 23FDAStart: 58-72-7897GH CLOSURE DEVICE EXOSEAL 6FFDAStart: 64-58-6241ZH STENT KELLY 2.75 X 23FDAStart: 07-52-5412ZW CLOSURE DEVICE EXOSEAL 6FFDAStart: 41-18-6858UK STENT KELLY 2.75 X 23FDAStart: 02-64-6605XW CLOSURE DEVICE EXOSEAL 6FFDAStart: 09-36-3592JK STENT KELLY 2.75 X 23FDAStart: 32-85-4231BK CLOSURE DEVICE EXOSEAL 6FFDAStart: 95-34-7388DV STENT KELLY 2.75 X 23FDAStart: 11-25-4823BK CLOSURE DEVICE EXOSEAL 6FFDAStart: 10-73-1897NF STENT KELLY 2.75 X 23FDAStart: 67-16-0324VO CLOSURE DEVICE EXOSEAL 6FFDAStart: 68-49-3633WX STENT KELLY 2.75 X 23FDAStart: 48-03-0960OG CLOSURE DEVICE EXOSEAL 6FFDAStart: 11-75-2887WY STENT KELLY 2.75 X 23FDAStart: 04-28-3689MZ CLOSURE DEVICE EXOSEAL 6FFDAStart: 28-05-5645CP STENT KELLY 2.75 X 23FDAStart: 04-29-2019 Goals DatePatient GoalDesired Activity/StatePersonal health goalComment on above: Evaluation of progress towards goal: Patient plans for a safe discharge.Personal health goalComment on above: Evaluation of progress towards goal: lists sent to daughter Functional Status MnlfGzukalbfqwSoyilgSptrnpsm17-01-2580Uhxrs score [AUDIT-C]0 06/22/2024 2:46 PM EDT Fifi Fontenot MANOMS Wezqiwstzv29-73-0669Yamfehllwa statusPatient is Progressing Toward BaselineMer[facility] Work Phone: [phone]tqwrprx statusPatient Not at Baseline [facility] Work Phone: [phone]iyvjnmk StatusN/AExecutive Urology of [place] 793630-24-2023Functional statusPatient at BaselineMercy Health St. [facility] Work Phone: [phone] 358-863709111498-16-7346Gnbttiffxs statusPatient at Baseline [facility] Work Phone: 1([phone]pqgjecdox statusPatient Not at Baseline [facility] Work Phone: [facility] Mental Status MrfsBhomkkdomkPhreviOazckilu09-50-4612Lslwhrimj functionCognitive Status Patient at BaselineMer[facility] Work Phone: [phone] 702-347704403034-89-5283Meitqfjbh functionCognitive Status Patient at [facility] Work Phone: [phone] 490-916310-641775-57-7919Kotxhdrlc functionCognitive Status Patient at [facility] Work Phone: [phone]bkvsgfy functionCognitive Status Patient at [facility] Work Phone: [phone]ydxwpo functionCognitive Status Patient at [facility] Work Phone: Clinical Notes 01-18-2022 to 02-23-2025 Note Date & CaphFoytBxjezltj05-32-7948 [facility] Chief Complaint: Patient here per Karly English request. Patient states she has not been feeling good this am. Patient states she had dry heaves and both of her shoulders hurt. Patient denies chest pain, leg swelling, or dizziness, Patient complains of shortness of breath at night time, patient states she sleeps on 2 pillows. Heart racing, or palpitations Patient uses home o2 20/05 Review of Systems Cardiovascular: Positive for irregular heartbeat and orthopnea. Respiratory: Positive for shortness of breath and sleep disturbances due to breathing. HPI: Gera Perdue is a 79 y.o. female HPI PMHx: CAD s/p PCI to mid circ 04/2019, smoker, CKD, SID, HTN, COPD on supplemental O2, HLD, PEA cardiac arrest 09/2023, systolic heart failure with EF 25% 02/09/2025 Patient here for a 1 month follow up. Patient states she doesn't feel to bad, she gets tired easily. Per great granddaughter she is out of all of her cardiac medication for a week and a half. Patient states she has chest pain that comes and goes with and without activity. Patient states she feel her heart skipping beat which causes her to have to catch her breath. She was admitted at [facility] last week for COPD exacerbation. She was discharged with prednisone and doxycycline. He c/o fatigue and continued CULVER. Denies LE swelling, palpitations, dizziness/LH, syncope. 01/07/2025 She states she has been feeling better since prior to her recent hospital stay. She has CULVER - this has been fluctuating since she was discharged. She remains on supplemental O2. Her weight is down from 200# to 184#. She is currently residing at [place] for rehab. She will be going home next week. She notes mild leg swelling. Denies CP, orthopnea, PND, palpitations, dizziness/LH. Discharge Summary Final Discharge Diagnosis: Type II TN, likely secondary to oxygen supply and demand mismatch Coronary artery disease s/p PCI of mid circumflex 2.75 x 23 mm Xience Kelly drug-eluting stent postdilated with 3.25 noncompliant balloon April 2019 Acute on chronic hypoxemic respiratory failure, likely multifactorial, secondary to COPD and heart failure exacerbation 4. Acute decompensated heart failure with reduced ejection fraction, NYHA functional class II-III 5. Chronic kidney disease stage IIIb 6. Primary hypertension 7. Obstructive sleep apnea 8. History of PEA cardiac arrest in 09/2023 9. Hyperlipidemia 10. History of aspirin intolerance, currently maintained on plavix for CAD 11. History of TIA 12. Abdomina pain and diarrhea, resolved 13. Hypokalemia 14. ARTURO, likely pre-renal Admission Diagnosis: NSTEMI (non-ST elevated myocardial infarction) ([facility]) [I21.4] Hospital course: Gera Perdue is a 79 y.o. 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 Patient states that she had extreme shortness of breath when she woke up from her sleep on 12/17. She has been dealing with progressively worsening dyspnea on exertion and acute episode yesterday prompted her to come to the ER. She also reports associated dizziness and sputum production. She initially went to the [facility], was subsequently transferred to [facility]. Chest x-ray showed diffuse interstitial prominence and a new small left pleural effusion. During this admission, patient was found to have elevated Troponins which peaked at 1.18. EKGs are unremarkable for any acute ST changes and showed normal sinus rhythm. Echocardiogram 12/18 showed new drop in ejection fraction to 25% with regional wall motion abnormalities, previous echo in January 2024 showed preserved ejection fraction of 65 to 70% Cardiac catheterization 12/18/24 showed nonobstructive moderate coronary disease with patent stent in the OM1 of the left circumflex. Right heart cath 12/18 showed elevated right-sided pressures with pulmonary capillary wedge pressure of 32 While patient being on diuretics developed ARTURO for which fark [employer], Lasix, Entresto and Aldactone were held. patient received gentle IV fluid hydration and kidney function normalized. Pending placement for this patient for discharge. Renal function has improved. Have resumed all her prior to home medications prior to discharge. Her BMP has remained stable. She has follow up with cardiology on 01/14. Cardiology ROS: Past Medical History She has a past medical history of CHF (congestive heart failure) (CMS/HCC), Chronic kidney disease, COPD (chronic obstru (more content not included)... [facility]04-15-[facility] History of Present illness Narrative* Gustavo Salas DO - 02/09/2025 2:30 PM EDT Images from the original note were not included. Subjective Patient ID: Gera Perdue is a 79 y.o. female who presents for No chief complaint on file.. HPI Review of Systems Objective Physical Exam Assessment/Plan Problem List Items Addressed This Visit COPD (chronic obstructive pulmonary disease) ([facility]/HCC) - Primary documented in this encounterSaint John's Health SystemLdqbvaqctj81-63-6854 NotePatient here for a 1 month follow up. Patient states she doesn't feel to bad, she gets tired easily. Per great granddaughter she is out of all of her cardiac medication for a week and a half. Patient states she has chest pain that comes and goes with and without activity. Patient states she feel her heart skipping beat which causes her to have to catch her breath. Review of Systems Cardiovascular: Positive for chest pain, dyspnea on exertion and palpitations. [facility]04-15-2025 NoteCardiovascular Medicine [facility] SUBJECTIVE Chief Complaint Patient presents with Coronary Artery Disease Congestive Heart Failure Shortness of Breath Gera Perdue is a 79 y.o. female here for follow-up. Her granddaughter accompanied her today. HPI PMHx: CAD s/p PCI to mid circ 04/2019, smoker, CKD, SID, HTN, COPD on supplemental O2, HLD, PEA cardiac arrest 09/2023, systolic heart failure with EF 25% 02/09/2025 Patient here for a 1 month follow up. Patient states she doesn't feel to bad, she gets tired easily. Per great granddaughter she is out of all of her cardiac medication for a week and a half. Patient states she has chest pain that comes and goes with and without activity. Patient states she feel her heart skipping beat which causes her to have to catch her breath. She was admitted at [facility] last week for COPD exacerbation. She was discharged with prednisone and doxycycline. He c/o fatigue and continued CULVER. Denies LE swelling, palpitations, dizziness/LH, syncope. 01/07/2025 She states she has been feeling better since prior to her recent hospital stay. She has CULVER - this has been fluctuating since she was discharged. She remains on supplemental O2. Her weight is down from 200# to 184#. She is currently residing at [place] for rehab. She will be going home next week. She notes mild leg swelling. Denies CP, orthopnea, PND, palpitations, dizziness/LH. Discharge Summary Final Discharge Diagnosis: Type II TN, likely secondary to oxygen supply and demand mismatch Coronary artery disease s/p PCI of mid circumflex 2.75 x 23 mm Xience Kelly drug-eluting stent postdilated with 3.25 noncompliant balloon April 2019 Acute on chronic hypoxemic respiratory failure, likely multifactorial, secondary to COPD and heart failure exacerbation 4. Acute decompensated heart failure with reduced ejection fraction, NYHA functional class II-III 5. Chronic kidney disease stage IIIb 6. Primary hypertension 7. Obstructive sleep apnea 8. History of PEA cardiac arrest in 09/2023 9. Hyperlipidemia 10. History of aspirin intolerance, currently maintained on plavix for CAD 11. History of TIA 12. Abdomina pain and diarrhea, resolved 13. Hypokalemia 14. ARTURO, likely pre-renal Admission Diagnosis: NSTEMI (non-ST elevated myocardial infarction) ([facility]) [I21.4] Hospital course: Gera Perdue is a 79 y.o. 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 Patient states that she had extreme shortness of breath when she woke up from her sleep on 12/17. She has been dealing with progressively worsening dyspnea on exertion and acute episode yesterday prompted her to come to the ER. She also reports associated dizziness and sputum production. She initially went to the [facility], was subsequently transferred to [facility]. Chest x-ray showed diffuse interstitial prominence and a new small left pleural effusion. During this admission, patient was found to have elevated Troponins which peaked at 1.18. EKGs are unremarkable for any acute ST changes and showed normal sinus rhythm. Echocardiogram 12/18 showed new drop in ejection fraction to 25% with regional wall motion abnormalities, previous echo in January 2024 showed preserved ejection fraction of 65 to 70% Cardiac catheterization 12/18/24 showed nonobstructive moderate coronary disease with patent stent in the OM1 of the left circumflex. Right heart cath 12/18 showed elevated right-sided pressures with pulmonary capillary wedge pressure of 32 While patient being on diuretics developed ARTURO for which fark CIGA, Lasix, Entresto and Aldactone were held. patient received gentle IV fluid hydration and kidney function normalized. Pending placement for this patient for discharge. Renal function has improved. Have resumed all her prior to home medications prior to discharge. Her BMP has remained stable. She has follow up with cardiology on 01/14. Surgical, Invasive or Diagnostic Procedures Done During Admission: Cardiac Cath FINAL IMPRESSIONS: Moderate, calcific disease of the left anterior descending and left circumflex coronary arteries Moderate to severe calcific disease of the proximal right coronary artery Patent stent in the third obtuse marginal branch of the left circumflex coronary artery Moderately elevated right-sided heart pressures and severely elevated pulmonary capillary wedge pressure consistent with biventricular congestive heart failure Normal transp (more content not included)...[facility] 02-09-2025 Evaluation note* Diagnosis Panlobular emphysema (CMS/HCC)- Primary Other emphysema Stage 3a chronic kidney disease (HCC) (CMS/HCC) 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 (CMS/HCC) Mixed hyperlipidemia (CMS/HCC) Mixed hyperlipidemia Failed back surgical syndrome Primary osteoarthritis of left knee Essential hypertension (CMS/HCC) Unspecified essential hypertension Medicare annual wellness visit, subsequent ACP (advance care planning) Other specified counseling Centrilobular emphysema (CMS/HCC)- Primary [id number]* Diagnosis Panlobular emphysema (CMS/HCC)- Primary Other emphysema Stage 3a chronic kidney disease (HCC) (CMS/HCC) 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 (CMS/HCC) Mixed hyperlipidemia (CMS/HCC) Mixed hyperlipidemia Failed back surgical syndrome Primary osteoarthritis of left knee Essential hypertension (CMS/HCC) Unspecified essential hypertension Medicare annual wellness visit, subsequent ACP (advance care planning) Other specified counseling Acute on chronic systolic congestive heart failure (CMS/HCC)- Primary Ischemic heart disease (CMS/HCC) Other specified forms of chronic ischemic heart disease Coronary stent patent Centrilobular emphysema (CMS/HCC) Essential hypertension ([facility]/HCC) Unspecified essential hypertension Stage 3a chronic kidney disease (HCC) (CMS/HCC) Morbid (severe) obesity due to excess calories (E66.01) Recurrent major depressive disorder, in partial remission (HCC) ([facility]/HCC) Failed back syndrome Other unspecified back disorder Pain Generalized pain [facility] encounter [id number] Telephone encounter Note* Telephone Encounter - Leonel Peres NP - 01/11/2025 11:06 AM EDT Requested Prescriptions Signed Prescriptions Disp Refills pregabalin (Lyrica) 75 MG capsule 20 capsule 0 Sig: Take 1 capsule (75 mg) by mouth in the morning and 1 capsule (75 mg) before bedtime. Do all this for 10 days. Authorizing Provider: LEONEL PERES Dc from the facility today. She has follow up with her PCP on 01/20/25. She is sent # 20 caps today.No refills. [id number] Miscellaneous Notes* Telephone Encounter - Leonel Peres NP - 01/11/2025 11:06 AM EDT Requested Prescriptions Signed Prescriptions Disp Refills pregabalin (Lyrica) 75 MG capsule 20 capsule 0 Sig: Take 1 capsule (75 mg) by mouth in the morning and 1 capsule (75 mg) before bedtime. Do all this for 10 days. Authorizing Provider: LEONEL PERES Dc from the facility today. She has follow up with her PCP on 01/20/25. She is sent # 20 caps today.No refills. [facility] [id number] Evaluation note* Diagnosis Panlobular emphysema (CMS/HCC)- Primary Other emphysema Stage 3a chronic kidney disease (HCC) ([facility]) 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 ([facility]/HCC) Mixed hyperlipidemia ([facility]/HCC) Mixed hyperlipidemia Failed back surgical syndrome Primary osteoarthritis of left knee Essential hypertension ([facility]) Unspecified essential hypertension Medicare annual wellness visit, subsequent ACP (advance care planning) Other specified counseling Pain- Primary Generalized pain documented in this encounter [id number] NotePatient here for follow up S/p hospital stay for CHF. Patient has a history of SOB, COPD, Hyperlipidemia, SID, HTN and PTCA. Patient is on 2LMP O2 via nasal cannula. Denies chest pain, bleeding. C/o swelling bilateral legs, leg pain from knees to ankles, posterior side. Back pain S/p fall. Patient would like to discuss getting off o2 and some of her medications. Review of Systems Cardiovascular: Positive for leg swelling (bilateral posterior leg pain). Musculoskeletal: Positive for back pain. All other systems reviewed and are negative.[facility] 01-07-2025 NoteCardiovascular Medicine [facility] SUBJECTIVE Chief Complaint Patient presents with Hospital Follow-up Coronary Artery Disease Congestive Heart Failure Gera Perdue is a 79 y.o. female here for follow-up after her recent admission to [facility] for acute HFrEF. HPI PMHx: CAD s/p PCI to mid circ 04/2019, smoker, CKD, SID, HTN, COPD on supplemental O2, HLD, PEA cardiac arrest 09/2023, systolic heart failure with EF 25% 01/07/2025 She states she has been feeling better since prior to her recent hospital stay. She has CULVER - this has been fluctuating since she was discharged. She remains on supplemental O2. Her weight is down from 200# to 184#. She is currently residing at [facility] for rehab. She will be going home next week. She notes mild leg swelling. Denies CP, orthopnea, PND, palpitations, dizziness/LH. Discharge Summary Final Discharge Diagnosis: Type II TN, likely secondary to oxygen supply and demand mismatch Coronary artery disease s/p PCI of mid circumflex 2.75 x 23 mm Xience Kelly drug-eluting stent postdilated with 3.25 noncompliant balloon April 2019 Acute on chronic hypoxemic respiratory failure, likely multifactorial, secondary to COPD and heart failure exacerbation 4. Acute decompensated heart failure with reduced ejection fraction, NYHA functional class II-III 5. Chronic kidney disease stage IIIb 6. Primary hypertension 7. Obstructive sleep apnea 8. History of PEA cardiac arrest in 09/2023 9. Hyperlipidemia 10. History of aspirin intolerance, currently maintained on plavix for CAD 11. History of TIA 12. Abdomina pain and diarrhea, resolved 13. Hypokalemia 14. ARTURO, likely pre-renal Admission Diagnosis: NSTEMI (non-ST elevated myocardial infarction) ([facility]) [I21.4] Hospital course: Gera Perdue is a 79 y.o. 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 Patient states that she had extreme shortness of breath when she woke up from her sleep on 12/17. She has been dealing with progressively worsening dyspnea on exertion and acute episode yesterday prompted her to come to the ER. She also reports associated dizziness and sputum production. She initially went to the [facility], was subsequently transferred to [facility]. Chest x-ray showed diffuse interstitial prominence and a new small left pleural effusion. During this admission, patient was found to have elevated Troponins which peaked at 1.18. EKGs are unremarkable for any acute ST changes and showed normal sinus rhythm. Echocardiogram 12/18 showed new drop in ejection fraction to 25% with regional wall motion abnormalities, previous echo in January 2024 showed preserved ejection fraction of 65 to 70% Cardiac catheterization 12/18/24 showed nonobstructive moderate coronary disease with patent stent in the OM1 of the left circumflex. Right heart cath 12/18 showed elevated right-sided pressures with pulmonary capillary wedge pressure of 32 While patient being on diuretics developed ARTURO for which fark CIGA, Lasix, Entresto and Aldactone were held. patient received gentle IV fluid hydration and kidney function normalized. Pending placement for this patient for discharge. Renal function has improved. Have resumed all her prior to home medications prior to discharge. Her BMP has remained stable. She has follow up with cardiology on 01/14. Surgical, Invasive or Diagnostic Procedures Done During Admission: Cardiac Cath FINAL IMPRESSIONS: Moderate, calcific disease of the left anterior descending and left circumflex coronary arteries Moderate to severe calcific disease of the proximal right coronary artery Patent stent in the third obtuse marginal branch of the left circumflex coronary artery Moderately elevated right-sided heart pressures and severely elevated pulmonary capillary wedge pressure consistent with biventricular congestive heart failure Normal transpulmonary gradient along with the elevated wedge consistent with postcapillary or pulmonary venous hypertension Mildly reduced cardiac output/cardiac index Resting arterial hypoxemia RECOMMENDATIONS: The Troponin elevation is likely a type II TN related to supply/demand mismatch; would treat underlying decompensated heart failure and any other etiologies of increased demand Aggressive cardiovascular risk factor modification Optimal medical therapy for coronary artery disease should include aspirin, moderate intensity statin therapy, and a beta-marylu Guideline di (more content not included)...[facility] 12-31-2024 NoteHospital Medicine Discharge Summary Final Discharge Diagnosis: Type II TN, likely secondary to oxygen supply and demand mismatch Coronary artery disease s/p PCI of mid circumflex 2.75 x 23 mm Xience Kelly drug-eluting stent postdilated with 3.25 noncompliant balloon April 2019 Acute on chronic hypoxemic respiratory failure, likely multifactorial, secondary to COPD and heart failure exacerbation 4. Acute decompensated heart failure with reduced ejection fraction, NYHA functional class II-III 5. Chronic kidney disease stage IIIb 6. Primary hypertension 7. Obstructive sleep apnea 8. History of PEA cardiac arrest in 09/2023 9. Hyperlipidemia 10. History of aspirin intolerance, currently maintained on plavix for CAD 11. History of TIA 12. Abdomina pain and diarrhea, resolved 13. Hypokalemia 14. ARTURO, likely pre-renal Admission Diagnosis: NSTEMI (non-ST elevated myocardial infarction) ([facility]) [I21.4] Hospital course: Gera Perdue is a 79 y.o. 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 Patient states that she had extreme shortness of breath when she woke up from her sleep on 12/17. She has been dealing with progressively worsening dyspnea on exertion and acute episode yesterday prompted her to come to the ER. She also reports associated dizziness and sputum production. She initially went to the [facility], was subsequently transferred to [facility]. Chest x-ray showed diffuse interstitial prominence and a new small left pleural effusion. During this admission, patient was found to have elevated Troponins which peaked at 1.18. EKGs are unremarkable for any acute ST changes and showed normal sinus rhythm. Echocardiogram 12/18 showed new drop in ejection fraction to 25% with regional wall motion abnormalities, previous echo in January 2024 showed preserved ejection fraction of 65 to 70% Cardiac catheterization 12/18/24 showed nonobstructive moderate coronary disease with patent stent in the OM1 of the left circumflex. Right heart cath 12/18 showed elevated right-sided pressures with pulmonary capillary wedge pressure of 32 While patient being on diuretics developed ARTURO for which fark CIGA, Lasix, Entresto and Aldactone were held. patient received gentle IV fluid hydration and kidney function normalized. Pending placement for this patient for discharge. Renal function has improved. Have resumed all her prior to home medications prior to discharge. Her BMP has remained stable. She has follow up with cardiology on 01/14. Surgical, Invasive or Diagnostic Procedures Done During Admission: Cardiac Cath FINAL IMPRESSIONS: Moderate, calcific disease of the left anterior descending and left circumflex coronary arteries Moderate to severe calcific disease of the proximal right coronary artery Patent stent in the third obtuse marginal branch of the left circumflex coronary artery Moderately elevated right-sided heart pressures and severely elevated pulmonary capillary wedge pressure consistent with biventricular congestive heart failure Normal transpulmonary gradient along with the elevated wedge consistent with postcapillary or pulmonary venous hypertension Mildly reduced cardiac output/cardiac index Resting arterial hypoxemia RECOMMENDATIONS: The Troponin elevation is likely a type II TN related to supply/demand mismatch; would treat underlying decompensated heart failure and any other etiologies of increased demand Aggressive cardiovascular risk factor modification Optimal medical therapy for coronary artery disease should include aspirin, moderate intensity statin therapy, and a beta-marylu Guideline directed medical therapy for heart failure with reduced ejection fraction should include a beta-marylu, a RAAS inhibitor/ARNI, an SGLT2 inhibitor and spironolactone Given significantly elevated filling pressures, IV diuresis, strict inputs and outputs and daily weights Consider outpatient stress testing versus return for repeat angiography and physiological assessment (iFR/FFR) of the moderate to severe lesions; this was not contemplated during this procedure due to severely elevated filling pressures Further recommendations deferred to the inpatient services Consultations During Admission: Cardiology, Nephrology, and Pulmonary Dear Dr. Maritza MD, Gera is advised to follow up with you within 1-2 weeks. Items to follow up in ambulatory setting: None Follow-up with: Cardiology Scheduled appointments: Future Appointments Date Time (more content not included)...[facility] 12-31-2024 Notedischarge planning: to [facility] (PT, OT, SN) 0902: communication received from insurance that their medical reception is offering a [id number] with deadline of 12n today; [facility] and physician notified immediately 09: communication received that following [id number] with physician, insurance has approved SNF and should have their approval in their system shortly; notice of approval sent to SNF 1000: called insurance and they confirmed approval in place for SNF (auth is [id number]; continued stay request for SNF is [id number]) [facility] answered, confirmed they have a bed available for Patient to come to them today HENS entered 1010: AVS and transport time sent to SNF, via [employer] system AVS faxed to [facility] on A[facility] vocational case manager Discharge Transportation Packet placed with Patient's physical chart Transportation scheduled for 11:30a pickup Nurse call report to [facility] [phone] ^bedside RN, Lead RN, [facility] notified 1020: [phone] PC to daughter Kamryn to notify of discharge destination and pickup time; no answer; recording stating voicemail has not been set up 1027: PC to Kamryn; no answer; unable to leave message 1234: PC to Kamryn; no answer; unable to leave message 1402: PC to Briseyda at [facility]; no answer; no voicemail left PC to daughter Kamryn; no answer; no option to leave a voicemail 1405 PC to [facility]; nurse stating they have called daughter Kamryn with no success and Patient told them she is likely still at work so they will call her after work to notify[facility]03-[facility] NotePhysical Therapy Physical Therapy Treatment Patient Name: Gera Perdue : 1945 Today's Date: 12/30/2024 Patient Active Problem List Diagnosis NSTEMI (non-ST elevated myocardial infarction) ([facility]) Other chest pain Coronary artery disease involving [place] coronary artery of [place] heart without angina pectoris COPD (chronic obstructive pulmonary disease) ([facility]) Chronic hypoxic respiratory failure ([facility]) Hx of methicillin resistant Staphylococcus aureus Hx of transient ischemic attack (TIA) Primary hypertension CKD stage 3b, GFR 30-44 ml/min ([facility]/HCC) Dysphagia Acute systolic heart failure ([facility]/HCC) Time: 15:32-16:11 12/30/24 1548 PT Last Visit PT Received On 12/30/24 General Subjective Pt had been cleared medically by nursing staff to receive therapy . Pt was sitting in bedside chair and told life insurance underwriter she had done therapy earlier and had gotten washed up, life insurance underwriter told pt she had did occupational therapy . Pt willing to work with physical therapy services see details of treatment session below : Precautions Medical Precautions oxygen;telemetry Pain Assessment Pain Assessment No/denies pain Cognition Orientation Level Oriented X4 Therapeutic Exercise Therapeutic Exercise Activity 1 Sitting LE theraband exercises with red theraband AAROM/AROM marching , LAQ, hip abduction adduction , heelslides with red theraband 10 reps 2 sets with rest break in between each set. AROM / AAROM for ankle ankle Pumps and dorsiflexion with yellow theraband 10 reps 1 set . Static Standing Balance Static Standing-Balance Support Left upper extremity supported;Right upper extremity supported;With device Static Standing-Level of Assistance Close supervision Dynamic Standing Balance Dynamic Standing-Balance Support No upper extremity supported;Unilateral upper extremity supported;With device Dynamic Standing-Balance (pt had to stand and wash her hands at sink so she had no UE support a times while doing this or 1 UE support on the sink) Dynamic Standing Balance-Level of Assistance Close supervision Ambulation Ambulation Yes Ambulation 1 Surface 1 Level tile Device 1 Rolling walker Assistance 1 Close supervision Quality of Gait 1 pt had good stance phase of gait , pt has increased radha . Comments/Distance (ft) 1 26 ft x 2 Bed Mobility Bed Mobility No Transfers Transfer Yes Transfer 1 Transfer From 1 Sit Transfer Type 1 To and from Transfer to 1 Stand;Chair with arms;Toilet Technique 1 Sit to stand;Stand to sit Transfer Device 1 rolling walker Transfer Level of Assistance 1 Close supervision Trials/Comments 1 10% verbal cues for pt to reach back for what she is going to sit down on to control rate of descent and for safety with transfers Other Activity Other Activity 2 pt left in bedside chair with call light in place Plan PT Discharge [facility]ations [facility] Goals: Multi-Disciplinary Problems (from Physical Therapy) Active Problems Problem: PT Misc Start Date: 12/21/24 Goal Start Date Expected End Date End Date Patient to demonstrate the ability to complete all bed mobility independently with hospital bed functions as needed 12/21/24 01/04/25 -- Goal Start Date Expected End Date End Date Patient to demonstrate the ability to complete all transfers independently with use of RW 12/21/24 01/04/25 -- Goal Start Date Expected End Date End Date Patient to demonstrate the ability to ambulate household distances independently with use of RW 12/21/24 01/04/25 -- Goal Start Date Expected End Date End Date Patient to participate in BLE exercise to improve strength and limit effects of immobility related to hospital admission. 12/21/24 01/04/25 -- Goal Start Date Expected End Date End Date Patient to demo the ability to maintain standing balance throughout all standing functional tasks with assistive device as needed 12/21/24 01/04/25 -- Goal Start Date Expected End Date End Date Provide patient with education regarding energy conservation related to recent NSTEMI 12/29/24 01/04/25 -- 12/30/24 1600 6 Clicks (Mobility) Help from another person turning from your back to your side while in a flat bed without using bedrails 3 Help from another person moving from lying on your back to sitting on the side of a flat bed without using bedrails 3 Help from another person moving to and from a bed to a chair (including a wheelchair) 3 Help from another person standing up from a chair using your arms (e.g. wheelchair or bedside chair) 3 Help from another person to walk in hospital room 3 Help from another person climbing 3-5 steps with a railing 1 Mobility 6 Clicks [employer] [address] [place], [place] [id number] Note Hospital Medicine Discharge Summary Final Discharge Diagnosis: Type II TN, likely secondary to oxygen supply and demand mismatch Coronary artery disease s/p PCI of mid circumflex 2.75 x 23 mm Xience Kelly drug-eluting stent postdilated with 3.25 noncompliant balloon April 2019 Acute on chronic hypoxemic respiratory failure, likely multifactorial, secondary to COPD and heart failure exacerbation 4. Acute decompensated heart failure with reduced ejection fraction, NYHA functional class II-III 5. Chronic kidney disease stage IIIb 6. Primary hypertension 7. Obstructive sleep apnea 8. History of PEA cardiac arrest in 09/2023 9. Hyperlipidemia 10. History of aspirin intolerance, currently maintained on plavix for CAD 11. History of TIA 12. Abdomina pain and diarrhea, resolved 13. Hypokalemia 14. ARTURO, likely pre-renal Admission Diagnosis: NSTEMI (non-ST elevated myocardial infarction) ([facility]) [I21.4] Hospital course: Gera Perdue is a 79 y.o. 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 Patient states that she had extreme shortness of breath when she woke up from her sleep on 12/17. She has been dealing with progressively worsening dyspnea on exertion and acute episode yesterday prompted her to come to the ER. She also reports associated dizziness and sputum production. She initially went to the [facility], was subsequently transferred to [facility]. Chest x-ray showed diffuse interstitial prominence and a new small left pleural effusion. During this admission, patient was found to have elevated Troponins which peaked at 1.18. EKGs are unremarkable for any acute ST changes and showed normal sinus rhythm. Echocardiogram 12/18 showed new drop in ejection fraction to 25% with regional wall motion abnormalities, previous echo in January 2024 showed preserved ejection fraction of 65 to 70% Cardiac catheterization 12/18/24 showed nonobstructive moderate coronary disease with patent stent in the OM1 of the left circumflex. Right heart cath 12/18 showed elevated right-sided pressures with pulmonary capillary wedge pressure of 32 While patient being on diuretics developed ARTURO for which fark [employer], Lasix, Entresto and Aldactone were held. patient received gentle IV fluid hydration and kidney function normalized. Pending placement for this patient for discharge. Renal function has improved. Will resume entresto and farxiga on 12/30. Continue to monitor BMP. Surgical, Invasive or Diagnostic Procedures Done During Admission: Cardiac Cath FINAL IMPRESSIONS: Moderate, calcific disease of the left anterior descending and left circumflex coronary arteries Moderate to severe calcific disease of the proximal right coronary artery Patent stent in the third obtuse marginal branch of the left circumflex coronary artery Moderately elevated right-sided heart pressures and severely elevated pulmonary capillary wedge pressure consistent with biventricular congestive heart failure Normal transpulmonary gradient along with the elevated wedge consistent with postcapillary or pulmonary venous hypertension Mildly reduced cardiac output/cardiac index Resting arterial hypoxemia RECOMMENDATIONS: The Troponin elevation is likely a type II TN related to supply/demand mismatch; would treat underlying decompensated heart failure and any other etiologies of increased demand Aggressive cardiovascular risk factor modification Optimal medical therapy for coronary artery disease should include aspirin, moderate intensity statin therapy, and a beta-marylu Guideline directed medical therapy for heart failure with reduced ejection fraction should include a beta-marylu, a RAAS inhibitor/ARNI, an SGLT2 inhibitor and spironolactone Given significantly elevated filling pressures, IV diuresis, strict inputs and outputs and daily weights Consider outpatient stress testing versus return for repeat angiography and physiological assessment (iFR/FFR) of the moderate to severe lesions; this was not contemplated during this procedure due to severely elevated filling pressures Further recommendations deferred to the inpatient services Consultations During Admission: Cardiology, Nephrology, and Pulmonary Dear Dr. Maritza MD, Gera is advised to follow up with you within 1-2 weeks. Items to follow up in ambulatory setting: None Follow-up with: Cardiology Scheduled appointments: Future Appointments Date Time Provider Department Center 01/14/2025 10:15 AM Dora Sigala MD BH CARD (more content not included)... [facility]03-05-2025 NoteHospital Medicine Daily Progress Note - 12/30/2024 3:44 PM; Room: [address] [place] [address] Admission: 12/17/2024 7:52 PM; Length of stay: 13 days THE HOSPITALIST TEAM PREFERS TO USE [employer] FOR NON-URGENT COMMUNICATION 7AM-7PM. IF I DO NOT RESPOND WITHIN 20 MINUTES OR URGENT MATTERS, PLEASE CALL THROUGH THE [employer] MANU[employer]CTURER'S REPRESENTATIVE. FROM 7PM-7AM, PLEASE PAGE [phone](COVR). Code Status: DNR CC-A Barriers to Discharge: Placement Expected Discharge Date:When bed available [facility] Overview Patient is seen for evaluation and management of NSTEMI as well as acute respiratory failure Subjective Up in chair Physical Exam Constitutional: Appearance: Class II obesity HENT: Head: Normocephalic. Eyes: Pupils: Pupils are equal, round, and reactive to light. Cardiovascular: Rate and Rhythm: Normal rate and regular rhythm. Pulmonary: Effort: No respiratory distress. Breath sounds: No rhonchi. Abdominal: General: Bowel sounds are normal. there is some tenderness to palpation throughout abdomen with no rebound or rigidity. Musculoskeletal: General: Normal range of motion. Skin: General: Skin is warm and dry. Neurological: Mental Status: She is alert. Mental status is at baseline. Visit Vitals BP 140/76 Pulse 78 Temp 36.8 ???C (98.3 ???F) (Temporal) Resp 19 Intake/Output Summary (Last 24 hours) at 12/30/2024 1544 Last data filed at 12/30/2024 1237 Gross per 24 hour Intake 240 ml Output -- Net 240 ml Estimated body mass index is 35.15 kg/m??? as calculated from the following: Height as of this encounter: 1.524 m (5'). Weight as of this encounter: 81.6 kg (180 lb). Active Inpatient Problems Principal Problem: Other chest pain Active Problems: NSTEMI (non-ST elevated myocardial infarction) ([facility]) Coronary artery disease involving [place] coronary artery of k[place] heart without angina pectoris COPD (chronic obstructive pulmonary disease) ([facility]) Chronic hypoxic respiratory failure ([facility]) Hx of methicillin resistant Staphylococcus aureus Hx of transient ischemic attack (TIA) Primary hypertension CKD stage 3b, GFR 30-44 ml/min ([facility]) Dysphagia Acute systolic heart failure ([facility]) Assessment and Plan Type II TN, likely secondary to oxygen supply and demand mismatch Coronary artery disease s/p PCI of mid circumflex 2.75 x 23 mm Xience Kelly drug-eluting stent postdilated with 3.25 noncompliant balloon April 2019 Acute on chronic hypoxemic respiratory failure, likely multifactorial, secondary to COPD and heart failure exacerbation 4. Acute decompensated heart failure with reduced ejection fraction, NYHA functional class II-III 5. Chronic kidney disease stage IIIb 6. Primary hypertension 7. Obstructive sleep apnea 8. History of PEA cardiac arrest in 09/2023 9. Hyperlipidemia 10. History of aspirin intolerance, currently maintained on plavix for CAD 11. History of TIA 12. Abdomina pain and diarrhea, resolved 13. Hypokalemia 14. ARTURO, likely pre-renal 15. Leukocytosis, improving Cardiac catheterization 12/18/24 showed nonobstructive moderate coronary disease with patent stent in the OM1 of the left circumflex. Right heart cath 12/18 showed elevated right-sided pressures with pulmonary capillary wedge pressure of 32 Echocardiogram 12/18 showed new drop in ejection fraction to 25% with regional wall motion abnormalities, previous echo in January 2024 showed preserved ejection fraction of 65 to 70% Lasix on hold and creatinine normalized GDMT: Hold Farxiga and Aldactone, Continue Toprol-XL 25 and Entresto Off Solumedrol Per daughter Keri patient has unsafe living condition with other daughter Kamryn she resides with due to concern of drugging her with THC gummies CT A/P showed : Air-fluid levels throughout nondilated colon suggest acute diarrheal illness. No evidence for bowel obstruction, perforation, abscess nor other acute finding. Left-sided anterior abdominal wall hernia contains nondilated large and small bowel without associated obstruction. C. Diff negative Replace lytes per protocol VTE Prophylaxis: Heparin subcutaneous Scheduled Meds acetaminophen, 1,000 mg, oral, q8h atorvastatin, 40 mg, oral, Daily budesonide, 0.5 mg, nebulization, Daily buPROPion XL, 300 mg, oral, q AM cholecalciferol, 2,000 Units, oral, Daily clopidogrel, 75 mg, oral, Daily [Held by provider] dapagliflozin propanediol, 10 mg, oral, Daily [Held by provider] furosemide, 40 mg, oral, BID with meals heparin (porcine), 5,000 Units, subcutaneous, BID hydrocortisone, , Topical, BID metoprolol succinate XL, 25 mg, oral, Daily Oxygen Therapy, , inhalation, Continuous pregabalin, 75 mg, oral, BID [Held by provider] sacubitril-valsartan, 1 tablet, oral, BID [Held by provider] spironolactone, 50 mg, oral, Daily Pertinent Investigations Hematology: Results from last 7 days Lab Units 12/30/24 0518 (more content not included)...[facility] 12-30-2024 NoteOccupational Therapy Occupational Therapy Treatment Patient Name: Gera Perdue : 1945 Today's Date: 12/30/2024 Problem List Patient Active Problem List Diagnosis NSTEMI (non-ST elevated myocardial infarction) ([facility]) Other chest pain Coronary artery disease involving [place] coronary artery of [place] heart without angina pectoris COPD (chronic obstructive pulmonary disease) ([facility]) Chronic hypoxic respiratory failure ([facility]) Hx of methicillin resistant Staphylococcus aureus Hx of transient ischemic attack (TIA) Primary hypertension CKD stage 3b, GFR 30-44 ml/min ([facility]) Dysphagia Acute systolic heart failure ([facility]) 12/30/24 1320 Time Calculation Start Time 1320 Stop Time 1332 Time Calculation (min) 12 min Assessment/Plan 12/30/24 1320 OT Last Visit OT Received On 12/30/24 General Subjective I've already did everything, but i will wash my face Treatment Duration (min) 12 Minutes Response to Previous Treatment Patient with no complaints from previous session Family/Caregiver Present No Precautions Medical Precautions telemetry;oxygen Pain Assessment Pain Assessment No/denies pain Cognition Orientation Level Oriented X4 General Assessment Hearing Intact Skin Integrity high skin irritation noticed on Groin and buttox area Hand Dominance Right Grooming Grooming Level of Assistance Close supervision Grooming Where Assessed Standing sink side Grooming Comments Pt was able to stand at sink to complete face washing, after ~3 min Pt. requested to sit Functional Standing Tolerance Time ~6 Min Activity Transfer, standing tolerance Functional Standing Tolerance Comments Pt showed forward flexed posture. w/increased BLE weakness Static Sitting Balance Static Sitting-Balance Support Feet supported Static Sitting-Level of Assistance Independent Static Sitting-Comment/Number of Minutes No concerns with sitting balance Static Standing Balance Static Standing-Balance Support With device Static Standing-Level of Assistance Close supervision Static Standing-Comment/Number of Minutes SBA for brief management. Dynamic Standing Balance Dynamic Standing-Balance Support With device Dynamic Standing-Balance Forward lean;Reaching for objects Dynamic Standing Balance-Level of Assistance Close supervision Dynamic Standing-Comments Close supervision while standing at sink for safety. Bed Mobility Bed Mobility No Transfers Ambulation comments Chair->sink->BSC->Chair Transfer Yes Transfer 1 Transfer From 1 Chair with arms Transfer Type 1 To Transfer to 1 Stand Technique 1 Sit to stand;Stand to sit Transfer Device 1 rolling walker Transfer Level of Assistance 1 Minimum assistance Trials/Comments 1 Min A to get to standing position. SBA once standing Transfers 2 Transfer From 2 Stand Transfer Type 2 To Transfer to 2 Commode-standard Technique 2 Stand to sit Transfer Device 2 rolling walker Transfer Level of Assistance 2 Close supervision Trials/Comments 2 Pt requested to sit following sink side ADL. SBA for safety Transfers 3 Transfer From 3 Commode-standard Transfer Type 3 To Transfer to 3 Chair with arms Technique 3 Sit to stand;Stand to sit Transfer Device 3 rolling walker Transfer Level of Assistance 3 Close supervision Trials/Comments 3 Pt was able to return to recliner, slight SOB noted. No LOB noted Activity Tolerance Endurance Stage II Stage II (METs 1.4-2.0) - Sitting 10-20 mins Activity Tolerance Comments Pt showed interest in therapy but was limited d/t already did all of it . Pt showed to be SOB following transfers but O2 levels remained above 93% on room air. Therapeutic Activity Therapeutic Activity Time Entry 12 Therapeutic Activity 1 Transfers, Standing Balance OT Assessment OT Impairments Decreased ADL status;Decreased safe judgment during ADL;Decreased cognition;Decreased endurance;Decreased functional mobility OT Assessment/MANISHA Summary Pt would benefit from continued OT to improve Endurance for Transfers, Standing tolerance, Sink side ADLs, and to improve IND Prognosis Good Evaluation/Treatment Tolerance Patient limited by fatigue Medical Staff Made Aware Yes Strengths Ability to acquire knowledge;Attitude of self;Support and attitude of living partners;Support of extended family/friends;Capable of completing ADLs semi/independent;Access to adaptive/assistive products Barriers to Discharge Comorbidities;Insight into problems;Premorbid level of function OT Education/Comments Pt educated on breathing Tech, Transfer safety, Body positioning, Use of RW, and Fall risk safety Plan Level of assist 1 assist Treatment Interventions Functional transfer training;ADL retraining;Endurance training;Compensatory technique education OT Plan Skilled OT OT Frequency 5 times per week OT Discharge Recommendations penitentiary facility placement (Pos (more content not included)...[facility]03-05-2025 Notedischarge planning: to [facility] (PT, OT, SN) preauth number is [id number], [facility] supposed to call with decision SNF discharge barriers: [] insurance precert needed for SNF [] need HENS for SNF (social work completes) [] Patient has stretcher transport available to SNF placement, using Medicaid insurance[facility] NoteHospital Medicine Daily Progress Note - 12/29/2024 4:18 PM; Room: [address] [place] [address] Admission: 12/17/2024 7:52 PM; Length of stay: 12 days THE HOSPITALIST TEAM PREFERS TO USE [employer] FOR NON-URGENT COMMUNICATION 7AM-7PM. IF I DO NOT RESPOND WITHIN 20 MINUTES OR URGENT MATTERS, PLEASE CALL THROUGH THE [employer] MANUFACTURER'S REPRESENTATIVE. FROM 7PM-7AM, PLEASE PAGE [phone](COVR). Code Status: DNR CC-A Barriers to Discharge: Placement Expected Discharge Date:When bed available [facility]charge [facility]ination[facility] Overview Patient is seen for evaluation and management of NSTEMI as well as acute respiratory failure Subjective Doing OK In chair eating breakfast Asking when she will get to leave Physical Exam Constitutional: Appearance: Class II obesity HENT: Head: Normocephalic. Eyes: Pupils: Pupils are equal, round, and reactive to light. Cardiovascular: Rate and Rhythm: Normal rate and regular rhythm. Pulmonary: Effort: No respiratory distress. Breath sounds: No rhonchi. Abdominal: General: Bowel sounds are normal. there is some tenderness to palpation throughout abdomen with no rebound or rigidity. Musculoskeletal: General: Normal range of motion. Skin: General: Skin is warm and dry. Neurological: Mental Status: She is alert. Mental status is at baseline. Visit Vitals BP (!) 117/49 (BP Location: Left arm, Patient Position: Standing) Pulse 73 Temp 36.5 ???C (97.7 ???F) (Temporal) Resp 20 Intake/Output Summary (Last 24 hours) at 12/29/2024 1618 Last data filed at 12/29/2024 1300 Gross per 24 hour Intake 1470 ml Output -- Net 1470 ml Estimated body mass index is 35.47 kg/m??? as calculated from the following: Height as of this encounter: 1.524 m (5'). Weight as of this encounter: 82.4 kg (181 lb 9.6 oz). Active Inpatient Problems Principal Problem: Other chest pain Active Problems: NSTEMI (non-ST elevated myocardial infarction) ([facility]) Coronary artery disease involving [place] coronary artery of [place] heart without angina pectoris COPD (chronic obstructive pulmonary disease) ([facility]) Chronic hypoxic respiratory failure ([facility]) Hx of methicillin resistant Staphylococcus aureus Hx of transient ischemic attack (TIA) Primary hypertension CKD stage 3b, GFR 30-44 ml/min ([facility]) Dysphagia Acute systolic heart failure ([facility]) Assessment and Plan Type II TN, likely secondary to oxygen supply and demand mismatch Coronary artery disease s/p PCI of mid circumflex 2.75 x 23 mm Xience Kelly drug-eluting stent postdilated with 3.25 noncompliant balloon April 2019 Acute on chronic hypoxemic respiratory failure, likely multifactorial, secondary to COPD and heart failure exacerbation 4. Acute decompensated heart failure with reduced ejection fraction, NYHA functional class II-III 5. Chronic kidney disease stage IIIb 6. Primary hypertension 7. Obstructive sleep apnea 8. History of PEA cardiac arrest in 09/2023 9. Hyperlipidemia 10. History of aspirin intolerance, currently maintained on plavix for CAD 11. History of TIA 12. Abdomina pain and diarrhea, resolved 13. Hypokalemia 14. ARTURO, likely pre-renal 15. Leukocytosis, improving Cardiac catheterization 12/18/24 showed nonobstructive moderate coronary disease with patent stent in the OM1 of the left circumflex. Right heart cath 12/18 showed elevated right-sided pressures with pulmonary capillary wedge pressure of 32 Echocardiogram 12/18 showed new drop in ejection fraction to 25% with regional wall motion abnormalities, previous echo in January 2024 showed preserved ejection fraction of 65 to 70% Lasix on hold and creatinine normalized GDMT: Hold Farxiga and Aldactone, Continue Toprol-XL 25 and Entresto Off Solumedrol Per daughter Keri patient has unsafe living condition with other daughter Kamryn she resides with due to concern of drugging her with THC gummies CT A/P showed : Air-fluid levels throughout nondilated colon suggest acute diarrheal illness. No evidence for bowel obstruction, perforation, abscess nor other acute finding. Left-sided anterior abdominal wall hernia contains nondilated large and small bowel without associated obstruction. C. Diff negative Replace lytes per protocol VTE Prophylaxis: Heparin subcutaneous Scheduled Meds acetaminophen, 1,000 mg, oral, q8h atorvastatin, 40 mg, oral, Daily budesonide, 0.5 mg, nebulization, Daily buPROPion XL, 300 mg, oral, q AM cholecalciferol, 2,000 Units, oral, Daily clopidogrel, 75 mg, oral, Daily [Held by provider] dapagliflozin propanediol, 10 mg, oral, Daily [Held by provider] furosemide, 40 mg, oral, BID with meals heparin (porcine), 5,000 Units, subcutaneous, BID hydrocortisone, , Topical, BID metoprolol succinate XL, 25 mg, oral, Daily Oxygen Therapy, , inhalation, Continuous pregabalin, 75 mg, oral, BID [Held by provider] sacubitril-valsartan, 1 tablet, oral, BID [Held by provider] spironolact (more content not included)...[facility]03-04-2025 NotePhysical Therapy Physical Therapy Treatment Patient Name: Gera Perdue : 1945 Today's Date: 12/29/2024 Patient Active Problem List Diagnosis NSTEMI (non-ST elevated myocardial infarction) ([facility]) Other chest pain Coronary artery disease involving [place] coronary artery of [place] heart without angina pectoris COPD (chronic obstructive pulmonary disease) (CMS/HCC) Chronic hypoxic respiratory failure (CMS/HCC) Hx of methicillin resistant Staphylococcus aureus Hx of transient ischemic attack (TIA) Primary hypertension CKD stage 3b, GFR 30-44 ml/min ([facility]) Dysphagia Acute systolic heart failure ([facility]) 12/29/24 1340 PT Last Visit PT Received On 12/29/24 General Subjective Pt had been cleared medically by nursing staff to receive therapy services , pt was supine in the bed willing to work with therapy . See details of treatment session below: Activity Tolerance Endurance Stage II (short distance walks in the room) Precautions Medical Precautions telemetry;oxygen Pain Assessment Pain Assessment No/denies pain Cognition Orientation Level Oriented X4 Therapeutic Exercise Therapeutic Exercise Activity 1 Sitting LE AROM / AAROM with red and yellow theraband , ankle PF and DF with yellow theraband 10 reps 1 set . Yellow theraband LAQ, heelslides , hip abduction / adduction , marching red theraband 10 reps 1 set Static Standing Balance Static Standing-Balance Support Left upper extremity supported;Right upper extremity supported;With device Static Standing-Level of Assistance Contact guard Static Standing-Comment/Number of Minutes 15% tactile cues for static standing balance . Dynamic Standing Balance Dynamic Standing-Balance Support Left upper extremity supported;Right upper extremity supported;With device Dynamic Standing-Balance (while walking with rolling walker) Dynamic Standing Balance-Level of Assistance Contact guard Dynamic Standing-Comments no LOB 15% tactile cues for dynamic standing balance Ambulation Ambulation Yes Ambulation 1 Surface 1 Level tile Device 1 Rolling walker Assistance 1 Contact guard Quality of Gait 1 pt had good stance and swing phase of gait Comments/Distance (ft) 1 42 ft x 1 , 30 ft x 1 Resting HR 88 bpm working HR 103 bpm , pt's working HR less high today. Bed Mobility Bed Mobility Yes Bed Mobility 1 Bed Mobility From 1 Supine Bed Mobility Type 1 To Bed Mobility to 1 Short sit (HOB elevated to 30 degrees to simulate hospital bed at home.) Level of Assistance 1 Minimum assistance;Minimal tactile cues Bed Mobility Comments 1 25% tactile cues to assist pt with getting her trunk sitting upright at EOB . Transfers Transfer Yes Transfer 1 Transfer From 1 Sit Transfer Type 1 To and from Transfer to 1 Stand Technique 1 Sit to stand;Stand to sit Transfer Device 1 rolling walker Transfer Level of Assistance 1 Contact guard Trials/Comments 1 15% verbal cues for hand placement to make sure pt pushes from where she sits when standing up and reach back for what she is going to sit down on prior to sitting for safety. Transfers 2 Transfer From 2 Bed Transfer Type 2 To Transfer to 2 Chair with arms Technique 2 Lateral (sidetepping and stepping backwards) Transfer Device 2 rolling walker Transfer Level of Assistance 2 Contact guard Transfers 3 Transfer From 3 Stand Transfer Type 3 To Transfer to 3 Sit;Chair with arms Technique 3 Lateral (sidestepping and stepping backwards) Transfer Device 3 rolling walker Transfer Level of Assistance 3 Contact guard Other Activity Other Activity 2 pt left in bedside chair to allow her to eat her breakfast which life insurance underwriter heated . PT Assessment PT Assessment/EQUIPMENT MAINTENANCE SUPERVISOR Summary pt tolerated treatment session well and will continue to need skilled PT services to continue to work towards independence with walking and transfers Plan PT Discharge Recommendations [facility] facility placement Goals: Multi-Disciplinary Problems (from Physical Therapy) Active Problems Problem: PT Misc Start Date: 12/21/24 Goal Start Date Expected End Date End Date Patient to demonstrate the ability to complete all bed mobility independently with hospital bed functions as needed 12/21/24 01/04/25 -- Goal Start Date Expected End Date End Date Patient to demonstrate the ability to complete all transfers independently with use of RW 12/21/24 01/04/25 -- Goal Start Date Expected End Date End Date Patient to demonstrate the ability to ambulate household distances independently with use of RW 12/21/24 01/04/25 -- Goal Start Date Expected End Date End Date Patient to participate in BLE exercise to improve strength and limit effects of immobility related to hospital admission. 12/21/24 01/04/25 -- Goal Start Date Expected End Date End Date Patient to demo the ability to maintain standing balance throughout all standing function (more content not included)...[facility]03-04-2025 NoteDischarge Planning PC made to check on pre-cert. Requested we fax clinicals. Fax sent to .[facility]03-03-2025 NoteAdult Nutrition Assessment: Name: Gera Perdue Date: 1945 Date of Visit: 12/28/24 Admission Dx: NSTEMI (non-ST elevated myocardial infarction) (CMS/HCC) [I21.4] Reason for assessment: follow-up Information obtained from: patient, medical record, and RD record Past Medical History: Diagnosis Date COPD (chronic obstructive pulmonary disease) ([facility]) Hypertension Current Medications: acetaminophen, 1,000 mg, oral, q8h atorvastatin, 40 mg, oral, Daily budesonide, 0.5 mg, nebulization, Daily buPROPion XL, 300 mg, oral, q AM cholecalciferol, 2,000 Units, oral, Daily clopidogrel, 75 mg, oral, Daily [Held by provider] dapagliflozin propanediol, 10 mg, oral, Daily [Held by provider] furosemide, 40 mg, oral, BID with meals heparin (porcine), 5,000 Units, subcutaneous, BID hydrocortisone, , Topical, BID metoprolol succinate XL, 25 mg, oral, Daily Oxygen Therapy, , inhalation, Continuous pregabalin, 75 mg, oral, BID [Held by provider] sacubitril-valsartan, 1 tablet, oral, BID [Held by provider] spironolactone, 50 mg, oral, Daily umeclidinium-vilanteroL, 1 puff, inhalation, Daily Labs: 0 Lab Value Date/Time BUN 34 (H) 12/28/2024 0500 CREATININE 1.12 12/28/2024 0500 NA 139 12/28/2024 0500 K 4.3 12/28/2024 0500 MG 1.9 12/17/2024 2046 HGB 10.6 (L) 12/28/2024 0500 WBC 13.84 (H) 12/28/2024 0500 Allergies: Allergies Allergen Reactions Aspirin Hives, Nausea And Vomiting and Other Other Reaction(s): Mental Status Change Nutrition Problems: Swallowing Assessment: Pt reported no problems with swallowing. H&P reported soft diet with mildly thick liquids at baseline Mouth: missing teeth Abdominal Assessment: Pt denied any NVCD, last BM 12/26. I/O: Net fluid: +5.4 L since admit Appetite: good Cognition: A&O x 4 Feeding Skills: Pt reported that her family cooks for her and that she has good access to food Skin Integrity: no documented skin issues Edema: RLE +1, LLE non-pitting Other Factors: EF 25% 12/22: documented to have poor appetite 12/25: CT abdomen pelvis shows air-fluid levels with nondilated colon suggestive of acute diarrheal illness Nutrition Data/Clinical Indicators of Nutrition Status: Height: 152.4 cm (5') Weight: 81 kg (178 lb 9.2 oz) BMI (Calculated): 34.88 Wt Readings from Last 10 Encounters: 12/28/24 81 kg (178 lb 9.2 oz) 12/21/24 87.4 kg 10/16/24 88.6 kg internal med 07/02/24 84.8 kg podiatry 06/22/24 85.7 kg internal med 12/18/23 79.4 kg internal med IBW: 45.5 kg Weight change: Documented to have weight loss during this admission which could be related to bed scale weights and pt having a poor appetite with nausea and vomiting during this admission. Nutrition Assessment: 12/21: Pt reported that her appetite was okay until last night when she developed nausea, vomiting, and diarrhea. Pt reported that she has not had any recent changes in her intake. Pt reported that she will eat between 1-3 meal a day and it depends on how she is feeling. Pt reported that she likes to eat things like over easy eggs, toast with jelly, cottage cheese, peaches, coffee, orange juice, and grape juice. RN reported that pt has been eating well here until last night. Pt reported that she does not add salt to her food and she does not eat frozen meals. Pt reported that she does not drink any ONS at home. Pt reported that she follows a regular diet at home. 12/28: Pt reported that her appetite is good and it has improved from when she was sick while being here. Pt reported that is ordering 3 meals and that she will eat most of the food that she orders. Pt reported that she will normally get enough to eat other than when she orders noodles she will only eat a small amount. Pt denied any questions CHF diet education and reported that she is using pepper to season her foods. Dietary Orders (From admission, onward) Start Ordered 12/25/24 1439 Special Kitchen Request Once Comments: Chicken salad sandwich, peaches, grape juice 12/25/24 1439 12/25/24 0859 Special Kitchen Request Once Comments: Cream of wheat, 2 sugars, butter, wheat toast, grapes, coffee, cream, 2 sugar 12/25/24 0859 12/23/24 0800 Special Kitchen Request Once Comments: Please send up pancakes, grapes, and grape juice for breakfast. Thanks! 12/23/24 0800 12/20/24 0738 Special Kitchen Request Once Comments: Liberian toast, scrambled eggs, grits, peaches, orange juice, 12/20/24 0738 12/20/24 0713 Regular Diet Heart Healthy/HTN, CABG,Stroke, (2gNA, low fat, low cholesterol); 240ml/tray Diet effective now Question Answer Comment Room Service? Yes Fat restriction: Heart Healthy/HTN, CABG,Stroke, (2gNA, low fat, low cholesterol) Fluid restriction total / 24h: 240ml/tray 12/20/24 0713 12/19/24 1638 Special Kitchen Request Once Comments: Please send patient two cups of sherbet 12/19/24 1637 12/19/24 1041 Special Kitchen Request Once (more content not included)...[facility]03-03-2025 Note Physical Therapy Physical Therapy Treatment Patient Name: Gera Perdue : 1945 Today's Date: 12/29/2024 Patient Active Problem List Diagnosis NSTEMI (non-ST elevated myocardial infarction) ([facility]) Other chest pain Coronary artery disease involving [place] coronary artery of [place] heart without angina pectoris COPD (chronic obstructive pulmonary disease) ([facility]/HCC) Chronic hypoxic respiratory failure ([facility]/HCC) Hx of methicillin resistant Staphylococcus aureus Hx of transient ischemic attack (TIA) Primary hypertension CKD stage 3b, GFR 30-44 ml/min ([facility]/HCC) Dysphagia Acute systolic heart failure ([facility]/HCC) Time : 11:40-12:20 12/28/24 1315 PT Last Visit PT Received On 12/28/24 General Subjective Pt had been cleared medically by nursing staff , upon entering , Pt willing to do therapy services see details below : Cognition Orientation Level Oriented X4 Therapeutic Exercise Therapeutic Exercise Activity 1 Sitting bilat LE AROM ther exercises with red and yellow theraband , hip flexion , hip abduction adduction , LAQ, heelslides 10 reps 1 set. Static Sitting Balance Static Sitting-Balance Support Left upper extremity supported;Right upper extremity supported;Feet supported Static Sitting-Level of Assistance Independent Static Standing Balance Static Standing-Balance Support Left upper extremity supported;Right upper extremity supported;With device Static Standing-Level of Assistance Minimum assistance Static Standing-Comment/Number of Minutes 25% tactile cues for static standing balance Dynamic Standing Balance Dynamic Standing-Balance Support Left upper extremity supported;Right upper extremity supported;With device Dynamic Standing-Balance (while walking within her room) Dynamic Standing Balance-Level of Assistance Minimum assistance Dynamic Standing-Comments 25% tactile cues for dynamic standing balance . Ambulation Ambulation Yes Ambulation 1 Surface 1 Level tile Device 1 Rolling walker Assistance 1 Minimum assistance;Minimal tactile cues Quality of Gait 1 pt had good stance phase Comments/Distance (ft) 1 40 ft x 1 HR was 122 bpm , second walk was 30 ft x 1 working HR went up to 124 bpm after pt sat HR started to go down, pt a little SOB with increased HR above 120 bpm Bed Mobility Bed Mobility Yes Bed Mobility 1 Bed Mobility From 1 Supine Bed Mobility Type 1 To Bed Mobility to 1 Short sit (HOB elevated to 40 degrees to simulate hospital bed at home) Level of Assistance 1 Contact guard;Minimum assistance (pt inconsistently performing between these two assistance levels.) Bed Mobility 2 Bed Mobility From 2 Short sit Bed Mobility Type 2 To Bed Mobility to 2 Scooting (to EOB to get feet on floor and prepare to transfer .) Level of Assistance 2 Contact guard Bed Mobility Comments 2 15% tactile cues to assist pt with lateral weight shifts to walk her bottom out to EOB to get her feet on the floor and prepare for transfer and ambulation . Transfers Transfer Yes Transfer 1 Transfer From 1 Sit Transfer Type 1 To and from Transfer to 1 Stand Technique 1 Sit to stand;Stand to sit Transfer Device 1 rolling walker Transfer Level of Assistance 1 Contact guard Transfers 2 Transfer From 2 Stand Transfer Type 2 To Transfer to 2 Sit;Chair with arms Technique 2 Lateral (sidestepping and stepping backwards) Transfer Device 2 rolling walker Transfer Level of Assistance 2 Contact guard Trials/Comments 2 15% verbal cues to remind pt to reach back for what she is going to sit down on and to control rate of descent . Other Activity Other Activity 2 pt left in bedside chair ,with call light in place and tray table near pt . Plan PT Discharge Recommendations penit[facility]iary facility placement Goals: Multi-Disciplinary Problems (from Physical Therapy) Active Problems [facility]: 12[facility]24 Goal Start Date Expected End Date End Date Patient to demonstrate the ability to complete all bed mobility independently with hospital bed functions as needed 12/21/24 01/04/25 -- Goal Start Date Expected End Date End Date Patient to demonstrate the ability to complete all transfers independently with use of RW 12/21/24 01/04/25 -- Goal Start Date Expected End Date End Date Patient to demonstrate the ability to ambulate household distances independently with use of RW 12/21/24 01/04/25 -- Goal Start Date Expected End Date End Date Patient to participate in BLE exercise to improve strength and limit effects of immobility related to hospital admission. 12/21/24 01/04/25 -- Goal Start Date Expected End Date End Date Patient to demo the ability to maintain standing balance throughout all standing functional tasks with assistive device as needed 12/21/24 01/04/25 -- Goal Start Date Expected End Date End Date Provide patient with education regarding energy conservation related to (more content not included)...[facility]03-03-2025 Note Hospital Medicine Daily Progress Note - 12/28/2024 12:37 PM; Room: [address] [place] [address] Admission: 12/17/2024 7:52 PM; Length of stay: 11 days THE HOSPITALIST TEAM PREFERS TO USE [employer] FOR NON-URGENT COMMUNICATION 7AM-7PM. IF I DO NOT RESPOND WITHIN 20 MINUTES OR URGENT MATTERS, PLEASE CALL THROUGH THE SOLAR MANUFACTURER'S REPRESENTATIVE. FROM 7PM-7AM, PLEASE PAGE [phone](COVR). Code Status: DNR CC-A Barriers to Discharge: Placement Expected Discharge Date:When bed available Discharge Destination: [facility]iary facility Overview Patient is seen for evaluation and management of NSTEMI as well as acute respiratory failure Subjective Seen today in her room, on 2 L nasal cannula and does not seem in any acute distress. Still has somewhat poor appetite Physical Exam Constitutional: Appearance: Class II obesity HENT: Head: Normocephalic. Eyes: Pupils: Pupils are equal, round, and reactive to light. Cardiovascular: Rate and Rhythm: Normal rate and regular rhythm. Pulmonary: Effort: No respiratory distress. Breath sounds: No rhonchi. Abdominal: General: Bowel sounds are normal. there is some tenderness to palpation throughout abdomen with no rebound or rigidity. Musculoskeletal: General: Normal range of motion. Skin: General: Skin is warm and dry. Neurological: Mental Status: She is alert. Mental status is at baseline. Visit Vitals BP 111/55 (BP Location: Left arm, Patient Position: Lying) Pulse 89 Temp 36.5 ???C (97.7 ???F) (Temporal) Resp 16 Intake/Output Summary (Last 24 hours) at 12/28/2024 1237 Last data filed at 12/27/2024 2130 Gross per 24 hour Intake 1080 ml Output -- Net 1080 ml Estimated body mass index is 34.88 kg/m??? as calculated from the following: Height as of this encounter: 1.524 m (5'). Weight as of this encounter: 81 kg (178 lb 9.2 oz). Active Inpatient Problems Principal Problem: Other chest pain Active Problems: NSTEMI (non-ST elevated myocardial infarction) ([facility]) Coronary artery disease involving [place] coronary artery of [place] heart without angina pectoris COPD (chronic obstructive pulmonary disease) ([facility]) Chronic hypoxic respiratory failure ([facility]) Hx of methicillin resistant Staphylococcus aureus Hx of transient ischemic attack (TIA) Primary hypertension CKD stage 3b, GFR 30-44 ml/min ([facility]) Dysphagia Acute systolic heart failure ([facility]) Assessment and Plan Type II TN, likely secondary to oxygen supply and demand mismatch Coronary artery disease s/p PCI of mid circumflex 2.75 x 23 mm Xience Kelly drug-eluting stent postdilated with 3.25 noncompliant balloon April 2019 Acute on chronic hypoxemic respiratory failure, likely multifactorial, secondary to COPD and heart failure exacerbation 4. Acute decompensated heart failure with reduced ejection fraction, NYHA functional class II-III 5. Chronic kidney disease stage IIIb 6. Primary hypertension 7. Obstructive sleep apnea 8. History of PEA cardiac arrest in 09/2023 9. Hyperlipidemia 10. History of aspirin intolerance, currently maintained on plavix for CAD 11. History of TIA 12. Abdomina pain and diarrhea, resolved 13. Hypokalemia 14. ARTURO, likely pre-renal 15. Leukocytosis, improving Cardiac catheterization 12/18/24 showed nonobstructive moderate coronary disease with patent stent in the OM1 of the left circumflex. Right heart cath 12/18 showed elevated right-sided pressures with pulmonary capillary wedge pressure of 32 Echocardiogram 12/18 showed new drop in ejection fraction to 25% with regional wall motion abnormalities, previous echo in January 2024 showed preserved ejection fraction of 65 to 70% Lasix on hold and creatinine normalized GDMT: Hold Farxiga and Aldactone, Continue Toprol-XL 25 and Entresto Off Solumedrol Per daughter Keri patient has unsafe living condition with other daughter Kamryn she resides with due to concern of drugging her with THC gummies CT A/P showed : Air-fluid levels throughout nondilated colon suggest acute diarrheal illness. No evidence for bowel obstruction, perforation, abscess nor other acute finding. Left-sided anterior abdominal wall hernia contains nondilated large and small bowel without associated obstruction. C. Diff negative Replace lytes per protocol VTE Prophylaxis: Heparin subcutaneous Scheduled Meds acetaminophen, 1,000 mg, oral, q8h atorvastatin, 40 mg, oral, Daily budesonide, 0.5 mg, nebulization, Daily buPROPion XL, 300 mg, oral, q AM cholecalciferol, 2,000 Units, oral, Daily clopidogrel, 75 mg, oral, Daily [Held by provider] dapagliflozin propanediol, 10 mg, oral, Daily [Held by provider] furosemide, 40 mg, oral, BID with meals heparin (porcine), 5,000 Units, subcutaneous, BID hydrocortisone, , Topical, BID metoprolol succinate XL, 25 mg, oral, Daily Oxygen Therapy, , inhalation, Continuous pregabalin, 75 mg, oral, BID [Held by provider] sacubitril-valsartan, 1 tablet, or (more content not included)...[facility]03-03-2025 Notedischarge planning: to [facility] (PT, OT, SN) updates sent to [facility], via [employer] system; they are doing an onsite with Patient today [facility] accepting ([phone] Option 3) PC to [facility] about insurance precert; new precert needed since new facility destination; new precert started over the phone; preaut number is [phone], [facility] supposed to call with decision SNF discharge barriers: [] insurance precert needed for SNF [] need HENS for SNF (social work completes) [] Patient has stretcher transport available to SNF placement, [facility] Medicaid [facility] NoteHospital Medicine Daily Progress Note - 12/27/2024 12:31 PM; Room: [address] [place] [address] Admission: 12/17/2024 7:52 PM; Length of stay: 10 days THE HOSPITALIST TEAM PREFERS TO USE [employer] FOR NON-URGENT COMMUNICATION 7AM-7PM. IF I DO NOT RESPOND WITHIN 20 MINUTES OR URGENT MATTERS, PLEASE CALL THROUGH THE SOLAR MANUFACTURER'S REPRESENTATIVE. FROM 7PM-7AM, PLEASE PAGE [phone](COVR). Code Status: DNR CC-A Barriers to Discharge: Placement Expected Discharge Date: 1 day Discharge Destination: [facility] facility Overview Patient is seen for evaluation and management of NSTEMI as well as acute respiratory failure Subjective Seen today in her room, on 2 L nasal cannula and does not seem in any acute distress. Still has somewhat poor appetite Physical Exam Constitutional: Appearance: Class II obesity HENT: Head: Normocephalic. Eyes: Pupils: Pupils are equal, round, and reactive to light. Cardiovascular: Rate and Rhythm: Normal rate and regular rhythm. Pulmonary: Effort: No respiratory distress. Breath sounds: No rhonchi. Abdominal: General: Bowel sounds are normal. there is some tenderness to palpation throughout abdomen with no rebound or rigidity. Musculoskeletal: General: Normal range of motion. Skin: General: Skin is warm and dry. Neurological: Mental Status: She is alert. Mental status is at baseline. Visit Vitals BP (!) 123/41 (BP Location: Left arm, Patient Position: Lying) Pulse 81 Temp 36.2 ???C (97.2 ???F) (Temporal) Resp 14 No intake or output data in the 24 hours ending 12/27/24 1231 Estimated body mass index is 35.31 kg/m??? as calculated from the following: Height as of this encounter: 1.524 m (5'). Weight as of this encounter: 82 kg (180 lb 12.8 oz). Active Inpatient Problems Principal Problem: Other chest pain Active Problems: NSTEMI (non-ST elevated myocardial infarction) ([facility]/HCC) Coronary artery disease involving [place] coronary artery of [place] heart without angina pectoris COPD (chronic obstructive pulmonary disease) (CMS/HCC) Chronic hypoxic respiratory failure (CMS/HCC) Hx of methicillin resistant Staphylococcus aureus Hx of transient ischemic attack (TIA) Primary hypertension CKD stage 3b, GFR 30-44 ml/min (CMS/HCC) Dysphagia Acute systolic heart failure (CMS/HCC) Assessment and Plan Type II TN, likely secondary to oxygen supply and demand mismatch Coronary artery disease s/p PCI of mid circumflex 2.75 x 23 mm Xience Kelly drug-eluting stent postdilated with 3.25 noncompliant balloon April 2019 Acute on chronic hypoxemic respiratory failure, likely multifactorial, secondary to COPD and heart failure exacerbation 4. Acute decompensated heart failure with reduced ejection fraction, NYHA functional class II-III 5. Chronic kidney disease stage IIIb 6. Primary hypertension 7. Obstructive sleep apnea 8. History of PEA cardiac arrest in 09/2023 9. Hyperlipidemia 10. History of aspirin intolerance, currently maintained on plavix for CAD 11. History of TIA 12. Abdomina pain and diarrhea, resolved 13. Hypokalemia 14. ARTURO, likely pre-renal 15. Leukocytosis, improving Cardiac catheterization 12/18/24 showed nonobstructive moderate coronary disease with patent stent in the OM1 of the left circumflex. Right heart cath 12/18 showed elevated right-sided pressures with pulmonary capillary wedge pressure of 32 Echocardiogram 12/18 showed new drop in ejection fraction to 25% with regional wall motion abnormalities, previous echo in January 2024 showed preserved ejection fraction of 65 to 70% Lasix on hold and creatinine much better GDMT: Hold Farxiga and Aldactone, Continue Toprol-XL 25 and Entresto Off Solumedrol Per daughter Keri patient has unsafe living condition with other daughter Kamryn she resides with due to concern of drugging her with THC gummies CT A/P showed : Air-fluid levels throughout nondilated colon suggest acute diarrheal illness. No evidence for bowel obstruction, perforation, abscess nor other acute finding. Left-sided anterior abdominal wall hernia contains nondilated large and small bowel without associated obstruction. C. Diff negative Replace lytes per protocol VTE Prophylaxis: Heparin subcutaneous Scheduled Meds acetaminophen, 1,000 mg, oral, q8h atorvastatin, 40 mg, oral, Daily budesonide, 0.5 mg, nebulization, Daily buPROPion XL, 300 mg, oral, q AM cholecalciferol, 2,000 Units, oral, Daily clopidogrel, 75 mg, oral, Daily [Held by provider] dapagliflozin propanediol, 10 mg, oral, Daily [Held by provider] furosemide, 40 mg, oral, BID with meals heparin (porcine), 5,000 Units, subcutaneous, BID hydrocortisone, , Topical, BID metoprolol succinate XL, 25 mg, oral, Daily Oxygen Therapy, , inhalation, Continuous pregabalin, 75 mg, oral, BID [Held by provider] sacubitril-valsartan, 1 tablet, oral, BID [Held by provider] spironolactone, 50 mg, oral, Daily umeclidinium-vilanteroL, 1 puff (more content not included)...[facility]03-02-2025 NoteOccupational Therapy Treatment Note Patient Name: Gera Perdue Patient Date of : 1945 Today's Date: 12/27/24 Time in: 1115 Time Out: 1130 Total Time: 15 Past Medical History and Past Surgical History Patient Active Problem List Diagnosis NSTEMI (non-ST elevated myocardial infarction) ([facility]) Other chest pain Coronary artery disease involving [place] coronary artery of [place] heart without angina pectoris COPD (chronic obstructive pulmonary disease) ([facility]/HCC) Chronic hypoxic respiratory failure ([facility]) Hx of methicillin resistant Staphylococcus aureus Hx of transient ischemic attack (TIA) Primary hypertension CKD stage 3b, GFR 30-44 ml/min ([facility]) Dysphagia Acute systolic heart failure ([facility] [facility]) Past Medical History: Diagnosis Date COPD (chronic obstructive pulmonary disease) ([facility]) Hypertension Past Surgical History: Procedure Laterality Date COLON SURGERY OT Received On 12/27/2024 Subjective RN report pt is appropriate for therapy. On arrival pt seated up in chair and agreeable to session. Objective 1 Functional mobility and transfers Balance: Sitting Static Balance: Balance support Feet Supported Level of Assist: Supervision/set -up Comments: Standing Static Balance: Balance support Rolling Walker Level of Assist: CGA Comments: Activity Tolerance: Comments: Pt decreased activity tolerance as session progressed and demonstrate increased HR with activity 132 Transfers: Sit to Stand: Minimal Assist , Rolling Walker Comments: Stand to Sit: Moderate Assist, Rolling Walker Comments: Decreased activity tolerance as functional mobility progressed and pt descend into chair quickly Functional Ambulation: In room with increased HR requiring rest breaks and increased time for recovery Other Activity 1: At end of session pt seated in recliner chair with call light and needs in reach. Assessment: OT Assessment OT Impairments: Decreased ADL status, Decreased endurance, Decreased sensation, Decreased functional mobility, Decreased trunk control for functional activities OT Assessment/COMPUTER CLERK Summary: Pt would benefit from continued OT to regain IND with ADL, Functional Mobility, Transfers, SItting balance, and safety awareness Prognosis: Good Evaluation/Treatment Tolerance: Patient limited by decreased activity tolerance Medical Staff Made Aware: Yes Strengths: Ability to acquire knowledge, Attitude of self, Capable of completing ADLs semi/independent Barriers to Discharge: Comorbidities, Insight into problems, Coping skills OT Education/Comments: Pt educated on role of OT , Transfer safety, Bed mobility, Importance of participation, Breathing Tech, with good understanding Plan: Plan Level of assist: 1 assist Treatment Interventions: ADL retraining, Functional transfer training, Compensatory technique education, Endurance training OT Plan: Skilled OT OT Frequency: 5 times per week OT Discharge Recommendations: [facility] facility placement Equipment Recommended: none OT - Discharge Recommendations Placed: Yes AM-PAC 6 Clicks Putting on and taking off regular lower body clothing?: A Lot (Mod/Max Assist) Bathing(Including washing,rinsing,drying)?: A Lot (Mod/Max Assist) Toileting, which includes using the toilet,bedpan,or urinal?: A Lot (Mod/Max Assist) Putting on and taking off regular upper body clothing?: None (Independent) Taking care of personal grooming such as brushing teeth?: None (Independent) Eating meals?: None (Independent) Total Score OT [facility]: 18 OCCUPATIONAL THERAPY GOALS Multi-Disciplinary Problems (from Occupational Therapy) Active Problems Problem: Balance Start Date: 12/18/24 Goal Start Date Expected End Date End Date LTG - Patient will maintain stand balance to allow for safe mobility 12/18/24 01/15/25 -- Problem: Bathing Start Date: 12/18/24 Goal Start Date Expected End Date End Date LTG - Patient will utilize adaptive techniques to bathe body with SBA 12/18/24 01/15/25 -- Problem: Dressings Lower Extremities Start Date: 12/18/24 Goal Start Date Expected End Date End Date LTG - Patient will dress lower body with minimal assistance 12/18/24 01/15/25 -- Problem: Toileting Start Date: 12/18/24 Goal Start Date Expected End Date End Date LTG - Patient will utilize adaptive techniques/equipment to complete daily toileting tasks with no assistance 12/18/24 01/15/25 -- Problem: Transfers Start Date: 12/18/24 Goal Start Date Expected End Date End Date LTG - Patient will perform bed mobility with no assistance 12/18/24 01/15/25 -- Problem: OT Misc Start Date: 12/18/24 Goal Start Date Expected End Date End Date Mod I adl transfers 50 feet and standing 10 minutes 12/18/24 01/15/25 -- [facility]03-02-2025 NoteEMR reviewed Wbc continues to trend down off antibiotics Likely due to steroids Continue to monitor clinically ID will sign off, please reach out if any concerns or questions Simon Cristobal MD [facility] NoteAttempt therapy session, RN asked therapist to check back later as pt just received several family members for a visit. Check no charge. Will check back time permitting.[facility]03-01-2025 NoteHospital Medicine Daily Progress Note - 12/26/2024 11:54 AM; Room: [address] [place] [address] Admission: 12/17/2024 7:52 PM; Length of stay: 9 days THE HOSPITALIST TEAM PREFERS TO USE [employer] FOR NON-URGENT COMMUNICATION 7AM-7PM. IF I DO NOT RESPOND WITHIN 20 MINUTES OR URGENT MATTERS, PLEASE CALL THROUGH THE SOLAR MANUFACTURER'S REPRESENTATIVE. FROM 7PM-7AM, PLEASE PAGE [phone](COVR). Code Status: DNR CC-A Barriers to Discharge: Placement Expected Discharge Date: 1 day Discharge Destination: [facility] facility Overview Patient is seen for evaluation and management of NSTEMI as well as acute respiratory failure Subjective Seen today in her room, on 2 L nasal cannula and does not seem in any acute distress. Still has somewhat poor appetite Physical Exam Constitutional: Appearance: Class II obesity HENT: Head: Normocephalic. Eyes: Pupils: Pupils are equal, round, and reactive to light. Cardiovascular: Rate and Rhythm: Normal rate and regular rhythm. Pulmonary: Effort: No respiratory distress. Breath sounds: No rhonchi. Abdominal: General: Bowel sounds are normal. there is some tenderness to palpation throughout abdomen with no rebound or rigidity. Musculoskeletal: General: Normal range of motion. Skin: General: Skin is warm and dry. Neurological: Mental Status: She is alert. Mental status is at baseline. Visit Vitals BP 110/51 Pulse 69 Temp 36 ???C (96.8 ???F) (Temporal) Resp 21 Intake/Output Summary (Last 24 hours) at 12/26/2024 1154 Last data filed at 12/26/2024 0931 Gross per 24 hour Intake 740 ml Output -- Net 740 ml Estimated body mass index is 35.82 kg/m??? as calculated from the following: Height as of this encounter: 1.524 m (5'). Weight as of this encounter: 83.2 kg (183 lb 6.4 oz). Active Inpatient Problems Principal Problem: Other chest pain Active Problems: NSTEMI (non-ST elevated myocardial infarction) ([facility]) Coronary artery disease involving [place] coronary artery of [place] heart without angina pectoris COPD (chronic obstructive pulmonary disease) ([facility]) Chronic hypoxic respiratory failure ([facility]) Hx of methicillin resistant Staphylococcus aureus Hx of transient ischemic attack (TIA) Primary hypertension CKD stage 3b, GFR 30-44 ml/min ([facility]) Dysphagia Acute systolic heart failure ([facility]) Assessment and Plan Type II TN, likely secondary to oxygen supply and demand mismatch Coronary artery disease s/p PCI of mid circumflex 2.75 x 23 mm Xience Kelly drug-eluting stent postdilated with 3.25 noncompliant balloon April 2019 Acute on chronic hypoxemic respiratory failure, likely multifactorial, secondary to COPD and heart failure exacerbation 4. Acute decompensated heart failure with reduced ejection fraction, NYHA functional class II-III 5. Chronic kidney disease stage IIIb 6. Primary hypertension 7. Obstructive sleep apnea 8. History of PEA cardiac arrest in 09/2023 9. Hyperlipidemia 10. History of aspirin intolerance, currently maintained on plavix for CAD 11. History of TIA 12. Abdomina pain and diarrhea, resolved 13. Hypokalemia 14. ARTURO, likely pre-renal 15. Leukocytosis Cardiac catheterization 12/18/24 showed nonobstructive moderate coronary disease with patent stent in the OM1 of the left circumflex. Right heart cath 12/18 showed elevated right-sided pressures with pulmonary capillary wedge pressure of 32 Echocardiogram 12/18 showed new drop in ejection fraction to 25% with regional wall motion abnormalities, previous echo in January 2024 showed preserved ejection fraction of 65 to 70% Hold IV lasix and will give another 500 ml bolus today GDMT: Hold Farxiga and Aldactone, Continue Toprol-XL 25 and Entresto Off Solumedrol Per daughter Keri patient has unsafe living condition with other daughter Kamryn she resides with due to concern of drugging her with THC gummies CT A/P showed : Air-fluid levels throughout nondilated colon suggest acute diarrheal illness. No evidence for bowel obstruction, perforation, abscess nor other acute finding. Left-sided anterior abdominal wall hernia contains nondilated large and small bowel without associated obstruction. C. Diff negative Replace lytes per protocol Will discuss with ID team about Leukocytosis and the need for further testing Chest xray 12/24 showed NO acute rocess VTE Prophylaxis: Heparin subcutaneous Scheduled Meds acetaminophen, 1,000 mg, oral, q8h atorvastatin, 40 mg, oral, Daily budesonide, 0.5 mg, nebulization, Daily buPROPion XL, 300 mg, oral, q AM cholecalciferol, 2,000 Units, oral, Daily clopidogrel, 75 mg, oral, Daily [Held by provider] dapagliflozin propanediol, 10 mg, oral, Daily [Held by provider] furosemide, 40 mg, oral, BID with meals heparin (porcine), 5,000 Units, subcutaneous, BID hydrocortisone, , Topical, BID metoprolol succinate XL, 25 mg, oral, Daily Oxygen Therapy, , inhalation, Continuous pregabalin, 75 mg, oral (more content not included)...[facility]03-01-2025 NoteInfectious Diseases - Inpatient daily Progress Note - Patient name: Gera Perdue Patient Today's Date and Time: 12/26/2024, 9:37 AM Admission Date: 12/17/2024 Assessment/Plan Impression: Acute leukocytosis in an afebrile patient White blood cell trend: 7 on 12/18 to 12 on 12/20 to 17 on 12/22 to 19 on 12/24 to 24 on 12/25 This is likely multifactorial both from recent steroids administration, patient received multiple doses of methylprednisolone from the to the as well as her recent and progressively worsening kidney function ARTURO Heart failure with reduced ejection fraction HTN Acute abdominal pain and acute diarrhea, resolved C. difficile is ruled out CT abdomen pelvis shows air-fluid levels with nondilated colon suggestive of acute diarrheal illness Recommendations: Patient denies any complaint, diarrhea improving, negative Cdiff No abdominal pain Wbc is trending down from 24K to 20K Continue to monitor off antibiotics This is likely reactive to steroids If spikes a temp, please send blood cx Subjective Interval history: Denies any new complaint, feels well, no abdominal pain, afebrile Objective Physical Examination: BP 110/50 (BP Location: Left arm, Patient Position: Lying) Pulse 68 Temp 36 ???C (96.8 ???F) (Temporal) Resp 16 Ht 1.524 m (5') Wt 83.2 kg (183 lb 6.4 oz) SpO2 98% BMI 35.82 kg/m??? Temperature Range: Temp: 36 ???C (96.8 ???F) Temp Av.2 ???C (97.2 ???F) Min: 36 ???C (96.8 ???F) Max: 36.4 ???C (97.5 ???F) General Appearance: Awake, alert, and in no apparent distress, nontoxic Neck: Supple, Pulmonary/Chest: unlabored breathing Abdomen: soft, non-tender, nondistended, no palpable masses no organomegaly; normal bowel sounds Extremities: No cyanosis, edema, no joint effusions. Neurologic: Alert and oriented x 3, nonfocal. Laboratory data: I have independently reviewed the following labs: Results from last 7 days Lab Units 12/26/24 05012/25/2450912/24/248 WBC AUTO 10*3/uL 20.94* 24.62* 19.04* HEMOGLOBIN g/dL 12.3 13.0 13.1 HEMATOCRIT % 40.7 44.1 44.6 MCV fL 86.2 86.8 88.0 PLATELETS AUTO 10*3/uL 258 313 350 NEUTROS ABS 10*3/uL 14.4* -- -- EOS ABS MAN 10*3/uL 0.17 -- -- BASOS ABS MAN 10*3/uL 0.04 -- -- Results from last 7 days Lab Units 12/26/24 0508 12/25/24 0510 12/24/24 0448 POTASSIUM mmol/L 3.7 3.2* 3.8 CHLORIDE mmol/L 105 103 101 CO2 mmol/L 22 27 24 BUN mg/dL 77* 76* 68* CREATININE mg/dL 2.58* 3.19* 1.86* GLUCOSE mg/dL 87 108* 83 CALCIUM mg/dL 9.1 9.1 8.3* No lab exists for component: PROCALCITON No lab exists for component: TURBIDITY , SPECIFICGRA , PHURINE , LEUKOCYTE , PROTEIN , BLOODHGB , RBCELLS , RENALEPITH No lab exists for component: TOXIGENICC Imaging Studies: I have reviewed myself the following imaging studies performed in the past 3 days: XR chest 1 view Result Date: 12/24/2024 1. The cardiomediastinal silhouette and pulmonary vasculature are stable. 2. No evidence for a pneumothorax or focal consolidation. Right perihilar scarring or atelectasis. Trace left effusion versus pleural scarring. Electronically signed: Yovani Hoskins. No CT results found for the past 3 days No MRI results found for the past 3 days Cultures: No results found for any visits on 12/17/24. Medications: acetaminophen, 1,000 mg, oral, q8h atorvastatin, 40 mg, oral, Daily budesonide, 0.5 mg, nebulization, Daily buPROPion XL, 300 mg, oral, q AM cholecalciferol, 2,000 Units, oral, Daily clopidogrel, 75 mg, oral, Daily [Held by provider] dapagliflozin propanediol, 10 mg, oral, Daily [Held by provider] furosemide, 40 mg, oral, BID with meals heparin (porcine), 5,000 Units, subcutaneous, BID hydrocortisone, , Topical, BID metoprolol succinate XL, 25 mg, oral, Daily Oxygen Therapy, , inhalation, Continuous pregabalin, 75 mg, oral, BID [Held by provider] sacubitril-valsartan, 1 tablet, oral, BID [Held by provider] spironolactone, 50 mg, oral, Daily umeclidinium-vilanteroL, 1 puff, inhalation, Daily This progress note was completed using a voice chief school finance officer system. Every effort was made to ensure accuracy; however, inadvertent computerized chief school finance officer errors may be present. Thank you for allowing us to participate in the care of this patient. Our consultation addresses complex disease transmission risk assessment and mitigation Simon Cristobal MD [facility] Infectious Diseases Please contact us via [employer] during business hours. If no response in 15 min, call / page through the [facility]02-28-2025 [facility] Medicine Daily Progress Note - 12/25/2024 12:52 PM; Room: [address] [place] [address] Admission: 12/17/2024 7:52 PM; Length of stay: 8 days THE HOSPITALIST TEAM PREFERS TO USE [employer] FOR NON-URGENT COMMUNICATION 7AM-7PM. IF I DO NOT RESPOND WITHIN 20 MINUTES OR URGENT MATTERS, PLEASE CALL THROUGH THE SOLAR MANUFACTURER'S REPRESENTATIVE. FROM 7PM-7AM, PLEASE PAGE [phone](COVR). Code Status: DNR CC-A Barriers to Discharge: respiratory failure and NSTEMI Expected Discharge Date: 1-2 days ? Discharge Destination: penitentiary facility ? Overview Patient is seen for evaluation and management of NSTEMI as well as acute respiratory failure Subjective Seen today in her room, on 2 L nasal cannula and does not seem in any acute distress. Still has somewhat poor appetite Physical Exam Constitutional: Appearance: Class II obesity HENT: Head: Normocephalic. Eyes: Pupils: Pupils are equal, round, and reactive to light. Cardiovascular: Rate and Rhythm: Normal rate and regular rhythm. Pulmonary: Effort: No respiratory distress. Breath sounds: No rhonchi. Abdominal: General: Bowel sounds are normal. there is some tenderness to palpation throughout abdomen with no rebound or rigidity. Musculoskeletal: General: Normal range of motion. Skin: General: Skin is warm and dry. Neurological: Mental Status: She is alert. Mental status is at baseline. Visit Vitals BP 120/50 Pulse 78 Temp 36.2 ???C (97.2 ???F) Resp 17 Intake/Output Summary (Last 24 hours) at 12/25/2024 1252 Last data filed at 12/25/2024 0955 Gross per 24 hour Intake 620 ml Output -- Net 620 ml Estimated body mass index is 34.65 kg/m??? as calculated from the following: Height as of this encounter: 1.524 m (5'). Weight as of this encounter: 80.5 kg (177 lb 6.4 oz). Active Inpatient Problems Principal Problem: Other chest pain Active Problems: NSTEMI (non-ST elevated myocardial infarction) (CMS/HCC) Coronary artery disease involving [place] coronary artery of [place] heart without angina pectoris COPD (chronic obstructive pulmonary disease) (CMS/HCC) Chronic hypoxic respiratory failure (CMS/HCC) Hx of methicillin resistant Staphylococcus aureus Hx of transient ischemic attack (TIA) Primary hypertension CKD stage 3b, GFR 30-44 ml/min (CMS/HCC) Dysphagia Acute systolic heart failure (CMS/HCC) Assessment and Plan Type II TN, likely secondary to oxygen supply and demand mismatch Coronary artery disease s/p PCI of mid circumflex 2.75 x 23 mm Xience Kelly drug-eluting stent postdilated with 3.25 noncompliant balloon April 2019 Acute on chronic hypoxemic respiratory failure, likely multifactorial, secondary to COPD and heart failure exacerbation 4. Acute decompensated heart failure with reduced ejection fraction, NYHA functional class II-III 5. Chronic kidney disease stage IIIb 6. Primary hypertension 7. Obstructive sleep apnea 8. History of PEA cardiac arrest in 09/2023 9. Hyperlipidemia 10. History of aspirin intolerance, currently maintained on plavix for CAD 11. History of TIA 12. Abdomina pain and diarrhea, resolved 13. Hypokalemia 14. ARTURO, likely pre-renal 15. Leukocytosis Cardiac catheterization 12/18/24 showed nonobstructive moderate coronary disease with patent stent in the OM1 of the left circumflex. Right heart cath 12/18 showed elevated right-sided pressures with pulmonary capillary wedge pressure of 32 Echocardiogram 12/18 showed new drop in ejection fraction to 25% with regional wall motion abnormalities, previous echo in January 2024 showed preserved ejection fraction of 65 to 70% Hold IV lasix and will give another 500 ml bolus today GDMT: Hold Farxiga and Aldactone, Continue Toprol-XL 25 and Entresto Off Solumedrol Per daughter Keri patient has unsafe living condition with other daughter Kamryn she resides with due to concern of drugging her with THC gummies CT A/P showed : Air-fluid levels throughout nondilated colon suggest acute diarrheal illness. No evidence for bowel obstruction, perforation, abscess nor other acute finding. Left-sided anterior abdominal wall hernia contains nondilated large and small bowel without associated obstruction. C. Diff negative Replace lytes per protocol Will discuss with ID team about Leukocytosis and the need for further testing Chest xray 12/24 showed NO acute rocess VTE Prophylaxis: Heparin subcutaneous Scheduled Meds acetaminophen, 1,000 mg, oral, q8h atorvastatin, 40 mg, oral, Daily budesonide, 0.5 mg, nebulization, Daily buPROPion XL, 300 mg, oral, q AM cholecalciferol, 2,000 Units, oral, Daily clopidogrel, 75 mg, oral, Daily [Held by provider] dapagliflozin propanediol, 10 mg, oral, Daily [Held by provider] furosemide, 40 mg, oral, BID with meals heparin (porcine), 5,000 Units, subcutaneous, BID hydrocortisone, , Topical, BID lactobacillus acidophilus, 1 capsule, oral, TID metoprolol succinate XL, 25 mg, oral, Da (more content not included)... [facility]02-28-2025 NotePhysical Therapy Physical Therapy Treatment Patient Name: Gera Perdue : 1945 Today's Date: 12/25/2024 12/25/24 Time Calculation Start Time 1106 Stop Time 1146 Time Calculation (min) 40 min PT Therapeutic Procedures Time Entry Therapeutic Activity Time Entry 40 Patient Active Problem List Diagnosis NSTEMI (non-ST elevated myocardial infarction) ([facility]) Other chest pain Coronary artery disease involving [place] coronary artery of [place] heart without angina pectoris COPD (chronic obstructive pulmonary disease) ([facility]) Chronic hypoxic respiratory failure ([facility]) Hx of methicillin resistant Staphylococcus aureus Hx of transient ischemic attack (TIA) Primary hypertension CKD stage 3b, GFR 30-44 ml/min ([facility]) Dysphagia Acute systolic heart failure ([facility]) 12/25/24 1106 PT Last Visit PT Received On 12/25/24 Response to Previous Treatment Patient with no complaints from previous session. General Family/Caregiver Present No Subjective Tired. Pt in chair upon entry, requesting assist to BR. Agreeable with life insurance underwriter helping as part of PT session. Activity Tolerance Endurance Stage II Activity Tolerance Comments Pt reports nausea throughout session. Had an episode of diarrhea while in BR. Pt became significantly fatigued after using the restroom. BP when back in bed: 69/52(55), BP after a few mins with bed in trendelenburg position: 90/47 (59) - nrsg notified. Precautions Medical Precautions fall risk;oxygen;telemetry (2L O2) Pain Assessment Pain Assessment No/denies pain Cognition Overall Cognitive Status WFL Arousal/Alertness Delayed responses to stimuli (due to fatigue) Orientation Level Oriented X4 Following Commands Follows one step commands with repetition;Follows one step commands with increased time Safety Judgment Decreased awareness of need for safety Awareness of Errors Assistance required to identify errors made Problem Solving Assistance required to identify errors made Communication Intact Cognition Comments Pt appeared more lethargic and fatigued compared to this morning. Static Sitting Balance Static Sitting-Balance Support Feet supported Static Sitting-Level of Assistance Close supervision Static Sitting-Comment/Number of Minutes close supervision due to fatigue Dynamic Sitting Balance Dynamic Sitting-Balance Support Feet supported Dynamic Sitting-Balance Forward lean Dynamic Sitting Balance-Level of Assistance Close supervision Dynamic Sitting-Comments pt leaned fwd mult times due to fatigue, had difficulty staying upiright while seated on toilet Static Standing Balance Static Standing-Balance Support Left upper extremity supported;Right upper extremity supported;With device (RW) Static Standing-Level of Assistance Contact guard Static Standing-Comment/Number of Minutes fwd flexed posture, quick onset fatigue, stood ~1-2 mins x3 reps in front of toilet during kay hygiene Ambulation Ambulation Yes Ambulation 1 Surface 1 Level tile Device 1 Rolling walker Assistance 1 Contact guard Quality of Gait 1 short step length/height, poor step clearance due to fatigue, fwd flexed posture, cues for RW proximity with fair carryover Comments/Distance (ft) 1 ~20' Bed Mobility Bed Mobility Yes Bed Mobility 1 Bed Mobility From 1 Short sit Bed Mobility Type 1 To Bed Mobility to 1 Supine Level of Assistance 1 Moderate assistance Bed Mobility Comments 1 Mod A at legs with return to supine Bed Mobility 2 Bed Mobility From 2 Supine;Scooting Level of Assistance 2 Dependent Bed Mobility Comments 2 TAPS used to reposition towards HOB Transfers Transfer Yes Transfer 1 Transfer From 1 Chair with arms Transfer Type 1 To Transfer to 1 Stand Technique 1 Sit to stand Transfer Device 1 rolling walker Transfer Level of Assistance 1 Contact guard Trials/Comments 1 cues for hand placement and initiation Transfers 2 Transfer From 2 Toilet Transfer Type 2 To and from Transfer to 2 Stand Technique 2 Sit to stand;Stand to sit Transfer Device 2 grab bars Transfer Level of Assistance 2 Moderate assistance;Minimum assistance Trials/Comments 2 fluctuated min <> mod A for controlled descents/lifts using GB for support (x3 reps) Transfers 3 Transfer From 3 Stand Transfer Type 3 To Transfer to 3 Bed Technique 3 Stand to sit Transfer Device 3 rolling walker Transfer Level of Assistance 3 Contact guard Trials/Comments 3 poor eccentric control Other Activity Other Activity 1 Pt in bed with call light and all needs available at end of session. Nrsg notified of pt's performance. PT Assessment PT Assessment/EQUIPMENT MAINTENANCE SUPERVISOR Summary Pt demonstrates poor activity tolerance this session due to nausea, fatigue, stomach pain and episode of diarrhea. Nrsg aware of pt's low BP. Will cont to progress as tolerated. Evaluation/Treatment Tolerance Patient limited by fatigue Medi (more content not included)...[facility]02-28-2025 Notedischarge planning: to [facility] (PT, OT, SN) insurance precert started for [facility] ([phone]) PC to [facility], to enquire about status of insurance precert; Ten answered, insurance precert received for [facility]; life insurance underwriter provided update that [facility]: insurance approval information can be retrieved by calling [phone] and providing reference number [id number] Approved; auth ID [id number]; canvassing manager Nan Rao; dos 12/23-12/25 ^update sent to [facility], via [employer] system SNF discharge barriers: [x] insurance precert needed for SNF [] need HENS for SNF (social work completes) [] Patient has stretcher transport available to SNF placement, [facility] Medicaid [facility] NotePhysical Therapy Physical Therapy Treatment Patient Name: Gera Perdue : 1945 Today's Date: 12/25/2024 12/25/24 Time Calculation Start Time 0944 Stop Time 1001 Time Calculation (min) 17 min PT Therapeutic Procedures Time Entry Therapeutic Activity Time Entry 17 Patient Active Problem List Diagnosis NSTEMI (non-ST elevated myocardial infarction) ([facility]) Other chest pain Coronary artery disease involving [place] coronary artery of k[place] heart without angina pectoris COPD (chronic obstructive pulmonary disease) ([facility]) Chronic hypoxic respiratory failure ([facility]) Hx of methicillin resistant Staphylococcus aureus Hx of transient ischemic attack (TIA) Primary hypertension CKD stage 3b, GFR 30-44 ml/min ([facility]) Dysphagia Acute systolic heart failure ([facility]/HCC) 12/25/24 0944 PT Last Visit PT Received On 12/25/24 Response to Previous Treatment Patient with no complaints from previous session. General Family/Caregiver Present No Subjective Pt in bed sleeping upon entry, awakens to voice and is agreeable to participate until breakfast arrives. Activity Tolerance Endurance Stage II Activity Tolerance Comments Pt states nausea and fatigue is still present but overall is feeling better. Mild to mod SOB observed following amb to chair on 2L O2. SpO2 and HR stable. Precautions Medical Precautions fall risk;oxygen;telemetry (2L O2) Pain Assessment Pain Assessment No/denies pain Cognition Overall Cognitive Status WFL Arousal/Alertness Appropriate responses to stimuli Orientation Level Oriented X4 Following Commands Follows one step commands with increased time Safety Judgment Decreased awareness of need for safety Awareness of Errors Assistance required to identify errors made Deficits Fully aware of deficits Attention Span Appears intact Problem Solving Assistance required to identify errors made Communication Intact Static Sitting Balance Static Sitting-Balance Support Feet supported Static Sitting-Level of Assistance Distant supervision Static Sitting-Comment/Number of Minutes EOB ~10 mins Dynamic Sitting Balance Dynamic Sitting-Balance Support Feet supported Dynamic Sitting-Balance Forward lean;Lateral lean Dynamic Sitting Balance-Level of Assistance Contact guard;Minimum assistance Dynamic Sitting-Comments Requires assist to scoot hips fwd at EOB due to short stature Static Standing Balance Static Standing-Balance Support Left upper extremity supported;Right upper extremity supported;With device (RW) Static Standing-Level of Assistance Contact guard Static Standing-Comment/Number of Minutes cues to promote upright posture with improved return demo Ambulation Ambulation Yes Ambulation 1 Surface 1 Level tile Device 1 Rolling walker Assistance 1 Contact guard Quality of Gait 1 short step length, slow radha, lateral sways Comments/Distance (ft) 1 ~12' deferred further distance due to breakfast arriving Bed Mobility Bed Mobility Yes Bed Mobility 1 Bed Mobility From 1 Supine Bed Mobility Type 1 To Bed Mobility to 1 Short sit Level of Assistance 1 Minimum assistance Bed Mobility Comments 1 HOB slightly elevated, Min A at trunk, incr time/effort Transfers Transfer Yes Transfer 1 Transfer From 1 Bed Transfer Type 1 To Transfer to 1 Stand Technique 1 Sit to stand Transfer Device 1 rolling walker Transfer Level of Assistance 1 Contact guard Trials/Comments 1 cues for initiation and hand placement Transfers 2 Transfer From 2 Stand Transfer Type 2 To Transfer to 2 Chair with arms Technique 2 Stand to sit Transfer Device 2 rolling walker Transfer Level of Assistance 2 Contact guard Trials/Comments 2 CGA to ensure alignment and controlled descent Other Activity Other Activity 1 Pt in chair with call light and breakfast try provided at end of session. 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 Pt agreeable with life insurance underwriter returning to attempt further activity/distances. Will cont to progress as tolerated. Evaluation/Treatment Tolerance Patient limited by fatigue Medical Staff Made Aware Yes PT Education/Comments safety Plan Level of assist 1 assist Treatment/Interventions Functional transfer training;Endurance training;Patient/family training;Gait training;Bed mobility PT Plan Skilled PT PT Frequency 5 times per week PT Discharge Recommendations [facility] Outcome Assessments 6 Clicks (Mobility) Help from another person turning from your back to your side while in a flat bed without using bedrails: A little Help from another person moving from lying on your back to sitting on the side of a flat bed without using bedrails: A little Help from another person moving to and from a bed to a chair (including a wheelchair): A little Help from another person standing up from a chair using (more content not included)...[facility]02-27-2025 NotePhysical Therapy Physical Therapy Treatment Patient Name: Gera Perdue : 1945 Today's Date: 12/24/2024 Patient Active Problem List Diagnosis NSTEMI (non-ST elevated myocardial infarction) (CMS/HCC) Other chest pain Coronary artery disease involving [place] coronary artery of [place] heart without angina pectoris COPD (chronic obstructive pulmonary disease) (CMS/HCC) Chronic hypoxic respiratory failure (CMS/HCC) Hx of methicillin resistant Staphylococcus aureus Hx of transient ischemic attack (TIA) Primary hypertension CKD stage 3b, GFR 30-44 ml/min (CMS/HCC) Dysphagia Acute systolic heart failure (CMS/HCC) Start Time: 1415 Stop Time: 1433 Time Calculation (min): 18 min PT Therapeutic Procedures Time Entry Therapeutic Exercise Time Entry: 18 Objective General Visit Information: PT Last Visit PT Received On: 12/24/24 General Family/Caregiver Present: No Subjective: RN approves PT session. Patient in bed upon arrival, agreeable to session. Upon completion, patient left in the chair with call light newton russell RN aware Vision - Basic Vision - Basic Assessment Current Vision: No visual deficits Vision - Complex Precautions Precautions Medical Precautions: fall risk, oxygen, telemetry (3L O2) Pain Pain Assessment Pain Assessment: 0-10 Pain Score: 4 Pain Type: Acute pain Pain Location: Rectum (Reports improved with numbing jelly and after it was removed earlier this afternoon.) Cognition Cognition Overall Cognitive Status: Within Functional Limits Arousal/Alertness: Appropriate responses to stimuli Orientation Level: Oriented X4 Following Commands: Follows all commands and directions without difficulty General Assessment General Assessment Hearing: Intact Hand Dominance: Right Static Sitting Balance Static Sitting Balance Static Sitting-Balance Support: Feet supported, Right upper extremity supported, Left upper extremity supported Static Sitting-Level of Assistance: Distant supervision Dynamic Sitting Balance Dynamic Sitting Balance Dynamic Sitting-Balance Support: Right upper extremity supported, Left upper extremity supported, Feet supported Dynamic Sitting-Balance: Forward lean, Lateral lean Dynamic Sitting Balance-Level of Assistance: Close supervision Static Standing Balance Static Standing Balance Static Standing-Balance Support: With device (RW) Static Standing-Level of Assistance: Contact guard Dynamic Standing Balance Dynamic Standing Balance Dynamic Standing-Balance Support: With device (RW) Dynamic Standing Balance-Level of Assistance: Contact guard General Assessments: Activity Tolerance Endurance: Stage II Activity Tolerance Comments: Currently on 3L O2 (baseline). Mild to moderate SOB with short ambulatory distance of ~20 ft with saturation WNL Cognition Overall Cognitive Status: Within Functional Limits Arousal/Alertness: Appropriate responses to stimuli Orientation Level: Oriented X4 Following Commands: Follows all commands and directions without difficulty Treatment: Ambulation Ambulation: Yes Ambulation 1 Surface 1: Level tile Device 1: Rolling walker Assistance 1: Contact guard Quality of Gait 1: Shorts step length, improved foot clearance. No significant instability or LOB Comments/Distance (ft) 1: 15 ft Bed Mobility Bed Mobility: Yes Bed Mobility 1 Bed Mobility From 1: Supine Bed Mobility Type 1: To Bed Mobility to 1: Short sit Level of Assistance 1: Minimum assistance Bed Mobility Comments 1: Min (A) x1 provided via INVESTIGATOR UTILITY BILL COMPLAINTS x1, patient able to manage BLE over to EOB and control trunk to EOB with this INVESTIGATOR UTILITY BILL COMPLAINTS x1 Transfers Transfer: Yes Transfer 1 Technique 1: Sit to stand, Stand to sit (Sit to stand from EOB, stand to sit into bedside chair) Transfer Device 1: rolling walker Transfer Level of Assistance 1: Contact guard Treatment Comments: Improved activity tolerance today, able to ambulate ~15 ft today with moderate SOB. Outcome Assessments 6 Clicks (Mobility) Help from another person turning from your back to your side while in a flat bed without using bedrails: A little Help from another person moving from lying on your back to sitting on the side of a flat bed without using bedrails: A little Help from another person moving to and from a bed to a chair (including a wheelchair): A little Help from another person standing up from a chair using your arms (e.g. 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 Continues to present with impaired activity tolerance. Will continue to benefit from additional skilled PT services. Prognosis: Good (more content not included)...[facility]02-27-2025 Note Hospital Medicine Daily Progress Note - 12/24/2024 1:26 PM; Room: [facility]- Admission: 12/17/2024 7:52 PM; Length of stay: 7 days THE HOSPITALIST TEAM PREFERS TO USE [employer] FOR NON-URGENT COMMUNICATION 7AM-7PM. IF I DO NOT RESPOND WITHIN 20 MINUTES OR URGENT MATTERS, PLEASE CALL THROUGH THE SOLAR MANUFACTURER'S REPRESENTATIVE. FROM 7PM-7AM, PLEASE PAGE [phone](COVR). Code Status: DNR CC-A Barriers to Discharge: respiratory failure and NSTEMI Expected Discharge Date: 1-2 days ? [facility] ? Overview Patient is seen for evaluation and management of NSTEMI as well as acute respiratory failure Subjective Seen today in her room, on 3 L nasal cannula and does not seem in any acute distress. Still has somewhat poor appetite Physical Exam Constitutional: Appearance: Class II obesity HENT: Head: Normocephalic. Eyes: Pupils: Pupils are equal, round, and reactive to light. Cardiovascular: Rate and Rhythm: Normal rate and regular rhythm. Pulmonary: Effort: No respiratory distress. Breath sounds: No rhonchi. Abdominal: General: Bowel sounds are normal. there is some tenderness to palpation throughout abdomen with no rebound or rigidity. Musculoskeletal: General: Normal range of motion. Skin: General: Skin is warm and dry. Neurological: Mental Status: She is alert. Mental status is at baseline. Visit Vitals BP (!) 104/48 (BP Location: Left arm, Patient Position: Lying) Pulse 65 Temp 36.6 ???C (97.8 ???F) (Temporal) Resp 14 Intake/Output Summary (Last 24 hours) at 12/24/2024 1326 Last data filed at 12/24/2024 0944 Gross per 24 hour Intake 1880 ml Output 800 ml Net 1080 ml Estimated body mass index is 36.6 kg/m??? as calculated from the following: Height as of this encounter: 1.524 m (5'). Weight as of this encounter: 85 kg (187 lb 6.4 oz). Active Inpatient Problems Principal Problem: Other chest pain Active Problems: NSTEMI (non-ST elevated myocardial infarction) ([facility]) Coronary artery disease involving [place] coronary artery of [place] heart without angina pectoris COPD (chronic obstructive pulmonary disease) ([facility]) Chronic hypoxic respiratory failure ([facility]) Hx of methicillin resistant Staphylococcus aureus Hx of transient ischemic attack (TIA) Primary hypertension CKD stage 3b, GFR 30-44 ml/min ([facility]) Dysphagia Acute systolic heart failure ([facility]) Assessment and Plan Type II TN, likely secondary to oxygen supply and demand mismatch Coronary artery disease s/p PCI of mid circumflex 2.75 x 23 mm Xience Kelly drug-eluting stent postdilated with 3.25 noncompliant balloon April 2019 Acute on chronic hypoxemic respiratory failure, likely multifactorial, secondary to COPD and heart failure exacerbation 4. Acute decompensated heart failure with reduced ejection fraction, NYHA functional class II-III 5. Chronic kidney disease stage IIIb 6. Primary hypertension 7. Obstructive sleep apnea 8. History of PEA cardiac arrest in 09/2023 9. Hyperlipidemia 10. History of aspirin intolerance, currently maintained on plavix for CAD 11. History of TIA 12. Abdomina pain and diarrhea, resolved 13. Hypokalemia 14. ARTURO, likely pre-renal Cardiac catheterization 12/18/24 showed nonobstructive moderate coronary disease with patent stent in the OM1 of the left circumflex. Right heart cath 12/18 showed elevated right-sided pressures with pulmonary capillary wedge pressure of 32 Echocardiogram 12/18 showed new drop in ejection fraction to 25% with regional wall motion abnormalities, previous echo in January 2024 showed preserved ejection fraction of 65 to 70% Hold IV lasix and will give gentle bolus GDMT: Hold Farxiga and Aldactone, Continue Toprol-XL 25 and Entresto Off Solumedrol Per daughter Keri patient has unsafe living condition with other daughter Kamryn she resides with due to concern of drugging her with THC gummies CT A/P showed : Air-fluid levels throughout nondilated colon suggest acute diarrheal illness. No evidence for bowel obstruction, perforation, abscess nor other acute finding. Left-sided anterior abdominal wall hernia contains nondilated large and small bowel without associated obstruction. C. Diff negative Replace lytes per protocol Conner get also chest xray portable today VTE Prophylaxis: Heparin subcutaneous Scheduled Meds acetaminophen, 1,000 mg, oral, q8h atorvastatin, 40 mg, oral, Daily budesonide, 0.5 mg, nebulization, Daily buPROPion XL, 300 mg, oral, q AM cholecalciferol, 2,000 Units, oral, Daily clopidogrel, 75 mg, oral, Daily [Held by provider] dapagliflozin propanediol, 10 mg, oral, Daily [Held by provider] furosemide, 40 mg, oral, BID with meals heparin (porcine), 5,000 Units, subcutaneous, BID hydrocortisone, , Topical, BID lactobacillus acidophilus, 1 capsule, oral, TID metoprolol succinate XL, 25 mg, oral, Daily Oxygen Therapy, , inhalation, Continuous (more content not included)... [facility]02-27-2025 NotePhysical Therapy Physical Therapy Treatment Patient Name: Gera Perdue : 1945 Today's Date: 12/24/2024 Patient Active Problem List Diagnosis NSTEMI (non-ST elevated myocardial infarction) ([facility]) Other chest pain Coronary artery disease involving [place] coronary artery of [place] heart without angina pectoris COPD (chronic obstructive pulmonary disease) ([facility]) Chronic hypoxic respiratory failure ([facility]) Hx of methicillin resistant Staphylococcus aureus Hx of transient ischemic attack (TIA) Primary hypertension CKD stage 3b, GFR 30-44 ml/min ([facility]CC) Dysphagia Acute systolic heart failure ([facility]/HCC) Start Time: 912 Stop Time: 924 Time Calculation (min): 12 min PT Therapeutic Procedures Time Entry Therapeutic Exercise Time Entry: 12 Objective General Visit Information: PT Last Visit PT Received On: 12/24/24 General Family/Caregiver Present: No Subjective: Patient friendly and cooperative, deferring any OOB activity at this time due to pain from rectal tube. Agreeable to attempt later today. AT this time, bed level exercises completed. Vision - Basic Vision - Basic Assessment Current Vision: No visual deficits Precautions Precautions Medical Precautions: fall risk, oxygen (Rectal Tube) Pain Pain Assessment Pain Assessment: 0-10 Pain Score: 8 Pain Type: Acute pain Pain Location: Rectum Cognition Cognition Overall Cognitive Status: Within Functional Limits Arousal/Alertness: Appropriate responses to stimuli Orientation Level: Oriented X4 General Assessments: Activity Tolerance Endurance: Stage II Cognition Overall Cognitive Status: Within Functional Limits Arousal/Alertness: Appropriate responses to stimuli Orientation Level: Oriented X4 Treatment: Therapeutic Exercise Therapeutic Exercise Time Entry: 12 Therapeutic Exercise Activity 1: Supine: Hip flexion/heel slides x8, ankle pumps BLE x10, SLR x5 to BLE Therapeutic Exercise Activity 2: Heel cord stretches with 30 second hold x2 to BLE, hamstring stretch x30 seconds x1 to BLE Bed Mobility Bed Mobility: No (Patient politely deferred any bed mobility or EOB at this time due to rectal pain from tube.) Treatment Comments: Limited session at this time due to rectal pain from tube. Bed level treatment completed. Patient agreeable and states she wants to get up, but not right now Outcome Assessments 6 Clicks (Mobility) Help from another person turning from your back to your side while in a flat bed without using bedrails: A little Help from another person moving from lying on your back to sitting on the side of a flat bed without using bedrails: A lot Help from another person moving to and from a bed to a chair (including a wheelchair): A little Help from another person standing up from a chair using your arms (e.g. 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 Will continue to benefit from further skilled PT services. Education provided regarding importance of continuing to move and get OOB despite rectal tube. Prognosis: Good Goals: Multi-Disciplinary Problems (from Physical Therapy) Active Problems Problem: PT Misc Start Date: 12/21/24 Goal Start Date Expected End Date End Date Patient to demonstrate the ability to complete all bed mobility independently with hospital bed functions as needed 12/21/24 01/04/25 -- Goal Start Date Expected End Date End Date Patient to demonstrate the ability to complete all transfers independently with use of RW 12/21/24 01/04/25 -- Goal Start Date Expected End Date End Date Patient to demonstrate the ability to ambulate household distances independently with use of RW 12/21/24 01/04/25 -- Goal Start Date Expected End Date End Date Patient to participate in BLE exercise to improve strength and limit effects of immobility related to hospital admission. 12/21/24 01/04/25 -- Goal Start Date Expected End Date End Date Patient to demo the ability to maintain standing balance throughout all standing functional tasks with assistive device as needed 12/21/24 01/04/25 -- [facility]02-26-2025 Note12/23/24 1043 Post Acute Info Authorization started for SNF (03) Outside facility coordinating the Authorization for Post Acute Placement No Facility name [facility] When was authorization started? 12/23/24 What time was authorization started? 1044 Reference number for submission [id number] Determination Approved OTM staff notified Eve Billingsley, Jimmy Peres When was authorization received? 12/23/24 What time was authorization received? 1532 When does authorization ? 12/25/24 Approval number [id number] How are we submitting authorization Manual What insurance are we submitting through [employer] Approved authorization for [facility], OTM notified.[facility]02-26-2025 NoteHospital Medicine Daily Progress Note - 12/23/2024 1:05 PM; Room: [address] [place] [address]- Admission: 12/17/2024 7:52 PM; Length of stay: 6 days THE HOSPITALIST TEAM PREFERS TO USE [employer] FOR NON-URGENT COMMUNICATION 7AM-7PM. IF I DO NOT RESPOND WITHIN 20 MINUTES OR URGENT MATTERS, PLEASE CALL THROUGH THE SOLAR MANUFACTURER'S REPRESENTATIVE. FROM 7PM-7AM, PLEASE PAGE [phone](COVR). Code Status: DNR CC-A Barriers to Discharge: respiratory failure and NSTEMI Expected Discharge Date: 2-3 days ? [facility] ? Overview Patient is seen for evaluation and management of NSTEMI as well as acute respiratory failure Subjective Seen today in her room, on 3 L nasal cannula and does not seem in any acute distress. Still has somewhat poor appetite Physical Exam Constitutional: Appearance: Class II obesity HENT: Head: Normocephalic. Eyes: Pupils: Pupils are equal, round, and reactive to light. Cardiovascular: Rate and Rhythm: Normal rate and regular rhythm. Pulmonary: Effort: No respiratory distress. Breath sounds: No rhonchi. Abdominal: General: Bowel sounds are normal. there is some tenderness to palpation throughout abdomen with no rebound or rigidity. Musculoskeletal: General: Normal range of motion. Skin: General: Skin is warm and dry. Neurological: Mental Status: She is alert. Mental status is at baseline. Visit Vitals BP 122/61 (BP Location: Left arm) Pulse 71 Temp 35.6 ???C (96 ???F) (Temporal) Resp 20 Intake/Output Summary (Last 24 hours) at 12/23/2024 1305 Last data filed at 12/23/2024 0600 Gross per 24 hour Intake 480 ml Output 100 ml Net 380 ml Estimated body mass index is 35.74 kg/m??? as calculated from the following: Height as of this encounter: 1.524 m (5'). Weight as of this encounter: 83 kg (182 lb 15.7 oz). Active Inpatient Problems Principal Problem: Other chest pain Active Problems: NSTEMI (non-ST elevated myocardial infarction) ([facility]) Coronary artery disease involving klawock coronary artery of klawock heart without angina pectoris COPD (chronic obstructive pulmonary disease) ([facility]) Chronic hypoxic respiratory failure ([facility]) Hx of methicillin resistant Staphylococcus aureus Hx of transient ischemic attack (TIA) Primary hypertension CKD stage 3b, GFR 30-44 ml/min ([facility]) Dysphagia Acute systolic heart failure ([facility]) Assessment and Plan Type II TN, likely secondary to oxygen supply and demand mismatch Coronary artery disease s/p PCI of mid circumflex 2.75 x 23 mm Xience Kelly drug-eluting stent postdilated with 3.25 noncompliant balloon April 2019 Acute on chronic hypoxemic respiratory failure, likely multifactorial, secondary to COPD and heart failure exacerbation 4. Acute decompensated heart failure with reduced ejection fraction, NYHA functional class II-III 5. Chronic kidney disease stage IIIb 6. Primary hypertension 7. Obstructive sleep apnea 8. History of PEA cardiac arrest in 09/2023 9. Hyperlipidemia 10. History of aspirin intolerance, currently maintained on plavix for CAD 11. History of TIA 12. Abdomina pain and diarrhea 13. Hypokalemia 14. ARTURO, likely pre-renal Cardiac catheterization 12/18/24 showed nonobstructive moderate coronary disease with patent stent in the OM1 of the left circumflex. Right heart cath 12/18 showed elevated right-sided pressures with pulmonary capillary wedge pressure of 32 Echocardiogram 12/18 showed new drop in ejection fraction to 25% with regional wall motion abnormalities, previous echo in January 2024 showed preserved ejection fraction of 65 to 70% Hold IV lasix GDMT: Hold Farxiga and Aldactone, Continue Toprol-XL 25 and Entresto Continue Solumedrol 40 IV q 8 hours Per daughter Keri patient has unsafe living condition with other daughter Kamryn she resides with due to concern of drugging her with THC gummies CT A/P showed : Air-fluid levels throughout nondilated colon suggest acute diarrheal illness. No evidence for bowel obstruction, perforation, abscess nor other acute finding. Left-sided anterior abdominal wall hernia contains nondilated large and small bowel without associated obstruction. C. Diff negative Replace lytes per protocol VTE Prophylaxis: Heparin subcutaneous Scheduled Meds acetaminophen, 1,000 mg, oral, q8h atorvastatin, 40 mg, oral, Daily budesonide, 0.5 mg, nebulization, Daily buPROPion XL, 300 mg, oral, q AM cholecalciferol, 2,000 Units, oral, Daily clopidogrel, 75 mg, oral, Daily [Held by provider] dapagliflozin propanediol, 10 mg, oral, Daily [Held by provider] furosemide, 40 mg, oral, BID with meals heparin (porcine), 5,000 Units, subcutaneous, BID hydrocortisone, , Topical, BID lactobacillus acidophilus, 1 capsule, oral, TID metoprolol succinate XL, 25 mg, oral, Daily Oxygen Therapy, , inhalation, Continuous pregabalin, 75 mg, oral, BID sacubitril-valsartan, 1 tablet, oral, BID [Held by pr (more content not included)...[facility] 12-23-2024 Note12/23/24 1043 Post Acute Info Authorization started for SNF (03) Outside facility coordinating the Authorization for Post Acute Placement No Facility name [facility] [id number] When was authorization started? 12/23/24 What time was authorization started? 1044 How are we submitting authorization Manual What insurance are we submitting through [facility] Submitted precert request for [facility] DYANA OTM to follow. [facility]02-26-2025 NoteCardiology Inpatient Progress Note Subjective Patient evaluated for new HFrEF 12/23/24 Awake, alert, c/o fatigue, and abdominal discomfort/bloating. Very poor appetite including oral fluids. No N/v, SOB at rest, wearing O2 at 3LNC. Denies CP, SOB, dizziness, palpitations. 12/22/24 Awake, alert, complains of fatigue, nasal oxygen at 3 L, poor appetite,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 found for: HGBA1C Lab Results Component Value Date TROPONIN I 0.61 (HH) 12/18/2024 TROPONIN I 0.88 () 12/18/2024 TROPONIN I 1.18 () 12/17/2024 TROPONIN I 1.12 () 12/17/2024 Lab Results Component Value Date BNP 571 (H) 12/21/2024 Last lab values have been reviewed with patient at today's visit. Encounter Date: 12/17/24 ECG 12 lead Result Value Ventricular Rate 91 Atrial Rate 91 IN Interval 148 QRS DURATION 76 QT Interval 396 QTC CALCULATION(BAZETT) 487 P [place] 82 R-[place] 57 T Wave [place] 122 Impression Normal sinus rhythm T wave abnormality, consider lateral ischemia Prolonged QT Abnormal ECG When compared with ECG of 17-DEC-2024 21:32, T wave inversion now evident in Lateral Confirmed by Juan C PAL, JACKSON Myers ([id number]) on 12/18/2024 1:03:17 PM Complete Echo (TTE) w/wo Imaging Agent, Strain, 3D, Bubble Study Result Date: 12/18/2024 1 1 [facility] Heart Station [address] [place] [address] [phone] (fax) Echocardiogram-[facility] Name: GERA PERDUE Study Date: 12/18/2024 12:53 PM B/P: 96 mmHg/74 mmHg HR: Date of : 1945 Location: [facility] Height: 60 in. Age: 79 year(s) Patient Room: 3135 Weight: 199 lb. Gender: Female Patient Status: InPt BSA: 1.86 m2 Indication: Dyspnea, Chest Pain, Non-STEMI, Hypertension, CAD, COPD Examination: Echoca (more content not included)...[facility]02-25-2025 Notedischarge planning: to a Half-Way Facility (PT, OT, SN) - Occupational Therapy Evaluation 12/18 recommending discharge to SNF - Physical Therapy Evaluation pending, at this time - oxygen flowsheet listing Patient on oxygen equipment 3L nasal cannula Patient agreeable to discharge to a Half-Way Facility to do therapies before returning to the private residence in the community; Briseyda at [facility] is vocational case manager for services in the community-- reports Patient has recently been at [facility] in [place] 10/15/24-10/29/24, has been to [facility] January 2024-April 2024, has been to [facility] (winter 2022) SNF referrals sent to [facility], [facility], and [facility]- to enquire if they are able to accept Patient for SNF services SNF discharge barriers: [] need SNF choices, then accepting SNF [] insurance precert will be needed for IPR, SNF, or LTACH placements [] Patient has stretcher transport available to placement, using Medicaid insurancePro[facility] NoteHospital Medicine Daily Progress Note - 12/21/2024 1:27 PM; Room: 3135/3135-01 Admission: 12/17/2024 7:52 PM; Length of stay: 4 days THE HOSPITALIST TEAM PREFERS TO USE [employer] FOR NON-URGENT COMMUNICATION 7AM-7PM. IF I DO NOT RESPOND WITHIN 20 MINUTES OR URGENT MATTERS, PLEASE CALL THROUGH THE SOLAR MANUFACTURER'S REPRESENTATIVE. FROM 7PM-7AM, PLEASE PAGE [phone](COVR). Code Status: DNR CC-A Barriers to Discharge: respiratory failure and NSTEMI Expected Discharge Date: 2-3 days ? [facility] ? Overview Patient is seen for evaluation and management of NSTEMI as well as acute respiratory failure Subjective Seen today in her room, on 3 L nasal cannula and does not seem in any acute distress. patient did complain of some left lower quadrant abdominal pain this morning Physical Exam Constitutional: Appearance: She is obese. HENT: Head: Normocephalic. Eyes: Pupils: Pupils are equal, round, and reactive to light. Cardiovascular: Rate and Rhythm: Normal rate and regular rhythm. Pulmonary: Effort: No respiratory distress. Breath sounds: No rhonchi. Abdominal: General: Bowel sounds are normal. there is some tenderness to palpation throughout abdomen with no rebound or rigidity. Musculoskeletal: General: Normal range of motion. Skin: General: Skin is warm and dry. Neurological: Mental Status: She is alert. Mental status is at baseline. Comments: Oriented x2 Visit Vitals BP 130/75 (BP Location: Left wrist, Patient Position: Lying) Pulse 82 Temp 36.3 ???C (97.3 ???F) (Temporal) Resp 19 Intake/Output Summary (Last 24 hours) at 12/21/2024 1327 Last data filed at 12/20/2024 2102 Gross per 24 hour Intake 480 ml Output 1100 ml Net -620 ml Estimated body mass index is 37.63 kg/m??? as calculated from the following: Height as of this encounter: 1.524 m (5'). Weight as of this encounter: 87.4 kg (192 lb 10.9 oz). Active Inpatient Problems Principal Problem: Other chest pain Active Problems: NSTEMI (non-ST elevated myocardial infarction) ([facility]) Coronary artery disease involving k[place] coronary artery of klawock heart without angina pectoris COPD (chronic obstructive pulmonary disease) ([facility]) Chronic hypoxic respiratory failure ([facility]) Hx of methicillin resistant Staphylococcus aureus Hx of transient ischemic attack (TIA) Primary hypertension CKD stage 3b, GFR 30-44 ml/min ([facility]) Dysphagia Acute systolic heart failure ([facility]) Assessment and Plan Type II TN, likely secondary to oxygen supply and demand mismatch Coronary artery disease s/p PCI of mid circumflex 2.75 x 23 mm Xience Kelly drug-eluting stent postdilated with 3.25 noncompliant balloon April 2019 Acute on chronic hypoxemic respiratory failure, likely multifactorial, secondary to COPD and heart failure exacerbation 4. Acute decompensated heart failure with reduced ejection fraction, NYHA functional class II-III 5. Chronic kidney disease stage IIIb 6. Primary hypertension 7. Obstructive sleep apnea 8. History of PEA cardiac arrest in 09/2023 9. Hyperlipidemia 10. History of aspirin intolerance, currently maintained on plavix for CAD 11. History of TIA 12. Abdomina pain and diarrhea Cardiac catheterization 12/18/24 showed nonobstructive moderate coronary disease with patent stent in the OM1 of the left circumflex. Right heart cath 12/18 showed elevated right-sided pressures with pulmonary capillary wedge pressure of 32 Echocardiogram 12/18 showed new drop in ejection fraction to 25% with regional wall motion abnormalities, previous echo in January 2024 showed preserved ejection fraction of 65 to 70% Continue IV lasix to 40 mg twice daily GDMT: continue Farxiga , Aldactone and Toprol-XL 25 mg, Entresto and spironolactone Continue Solumedrol 40 IV q 8 hours Per daughter Keri patient has unsafe living condition with other daughter Kamryn she resides with due to concern of drugging her with THC gummies Will obtain CT A/P and stool studies VTE Prophylaxis: Heparin subcutaneous Scheduled Meds atorvastatin, 40 mg, oral, Daily budesonide, 0.5 mg, nebulization, Daily buPROPion XL, 300 mg, oral, q AM cholecalciferol, 2,000 Units, oral, Daily clopidogrel, 75 mg, oral, Daily dapagliflozin propanediol, 10 mg, oral, Daily furosemide, 40 mg, intravenous, q12h heparin (porcine), 5,000 Units, subcutaneous, BID lactobacillus acidophilus, 1 capsule, oral, TID methylPREDNISolone sod suc (PF), 40 mg, intravenous, q8h metoprolol succinate XL, 25 mg, oral, Daily Oxygen Therapy, , inhalation, Continuous pregabalin, 75 mg, oral, BID sacubitril-valsartan, 1 tablet, oral, BID spironolactone, 50 mg, oral, Daily umeclidinium-vilanteroL, 1 puff, inhalation, Daily Pertinent Investigations Hematology: Results from last 7 days Lab Units 12/20/24 0505 12/18/24 0453 12/17/24 2046 WBC AUTO 10*3/uL 12.79* 7.38 9.96 HEMOGLOBIN g/dL 10.2* 1 (more content not included)...[facility]02-24-2025 NotePt admitted to hospital for CP. Pt's echo from 12/18/24 estimated LVEF 25%, which qualifies pt for cardiac rehab (CR) therapy with HF diagnosis. I will watch for updates and follow up with pt, if appropriate. Maddy Rivera, DONN social media manager Outpatient Coordinator [facility] NotePhysical Therapy Physical Therapy Evaluation Patient Name: Gera Perdue : 1945 Today's Date: 12/21/2024 Start Time: 1108 Stop Time: 1145 Time Calculation (min): 37 min PT Evaluation Time Entry PT Evaluation (Moderate) Time Entry: 20 PT Therapeutic Procedures Time Entry Therapeutic Exercise Time Entry: 10 Patient is a 79 y/o female who presents from OSH with chest pain, elevated troponin. Today, patient friendly and cooperative. Able to tolerate basic mobility assessment, ended session in chair. Will continue to benefit from further skilled PT services both throughout her admission and following discharge. Discharge: SNF General Subjective: RN approved PT session and OOB activity this date. In bed upon arrival, agreeable to session. Upon completionn, patient left in the chair with call light within reach, RN aware PT Diagnosis: Impaired strength/functional independence Patient Active Problem List Diagnosis NSTEMI (non-ST elevated myocardial infarction) ([facility]) Other chest pain Coronary artery disease involving k[place] coronary artery of k[place]ock heart without angina pectoris COPD (chronic obstructive pulmonary disease) ([facility]) Chronic hypoxic respiratory failure ([facility]) Hx of methicillin resistant Staphylococcus aureus Hx of transient ischemic attack (TIA) Primary hypertension CKD stage 3b, GFR 30-44 ml/min ([facility]) Dysphagia Acute systolic heart failure ([facility]) Past Medical History: Diagnosis Date COPD (chronic obstructive pulmonary disease) ([facility]) Hypertension Past Surgical History: Procedure Laterality Date COLON SURGERY Precautions Precautions Medical Precautions: fall risk, oxygen (3L O2) Pain Pain Assessment Pain Assessment: No/denies pain Pain Score: 0 - No pain Cognition Cognition Overall Cognitive Status: Within Functional Limits Arousal/Alertness: Appropriate responses to stimuli Following Commands: Follows one step commands with increased time, Follows one step commands with repetition General Assessment General Assessment Hearing: Intact Hand Dominance: Right Home Living Home Living Type of Home: Mobile home Lives With: Daughter, Other (Comment) (reports living with daughter and grandchild) Home Adaptive Equipment: Hospital bed, Rollator, Oxygen Home Layout: One level Home Access: Ramped entrance Bathroom Shower/Tub: Tub/shower unit Bathroom Equipment: Grab bars in shower, Shower chair with back, Raised toilet seat without rails Prior Level of Function Prior Function Level of [place]: Needs assistance with ADLs, Needs assistance with homemaking Prior Functional Mobility: Independent with rollator Receives Help From: Family, uniform attendant (INVESTIGATOR UTILITY BILL COMPLAINTS 2x/week for ~2 hours/day) Vision Basic Assessment Vision - Basic Assessment Current Vision: No visual deficits Vision - Complex General Assessments Activity Tolerance Endurance: Stage II Sensation Light Touch: No apparent deficits Coordination Movements are Fluid and Coordinated: Yes Postural Control Postural Control: Within Functional Limits Static Sitting Balance Static Sitting-Balance Support: Feet supported, Right upper extremity supported, Left upper extremity supported Static Sitting-Level of Assistance: Close supervision Dynamic Sitting Balance Dynamic Sitting-Balance Support: Right upper extremity supported, Left upper extremity supported, Feet supported Dynamic Sitting-Balance: Forward lean, Lateral lean Dynamic Sitting Balance-Level of Assistance: Moderate assistance Static Standing Balance Static Standing-Balance Support: With device (RW) Static Standing-Level of Assistance: Minimum assistance Dynamic Standing Balance Dynamic Standing-Balance Support: With device (RW) Dynamic Standing Balance-Level of Assistance: Minimum assistance Functional Assessments Bed Mobility Bed Mobility: Yes Bed Mobility 1 Bed Mobility From 1: Supine Bed Mobility Type 1: To Bed Mobility to 1: Short sit Level of Assistance 1: Moderate assistance Bed Mobility Comments 1: HOB elevated ~30 degrees, ,requiring Mod (A) x1 at trunk to complete supine to sit. Good initiation from patient Transfers Transfer: Yes Transfer 1 Technique 1: Sit to stand, Stand to sit (Sit to stnad from EOB, stand to sit into bedside chair) Transfer Device 1: rolling walker Transfer Level of Assistance 1: Minimum assistance Ambulation Ambulation: Yes Ambulation 1 Surface 1: Level tile Device 1: Rolling walker Assistance 1: Contact guard Quality of Gait 1: Short step length, poor foot clearance bilaterally, mild fwd flexed posture, cautious gait. Comments/Distance (ft) 1: 6 ft from EOB to bedside chair - friendly though deferred further further ambulatory distance due to fear of bowel movement Extremity Assessments RUE Assessment RUE Assessment: Within Functional Limits LUE Assessmen (more content not included)...[facility] 12-21-2024 NoteCardiology Inpatient Progress Note Subjective Subjective: 12/21/24: Awake and alert, good spirits, eating lunch. Says her admission dyspnea has significantly improved. Complains of diarrhea with incontinence. Denies any chest heaviness, pressure, dyspnea, dizziness. 12/20/24: No acute events overnight. Patient was seen and examined today AM. She denies any chest pain or shortness of breath. She is requiring home oxygen 3L NC. Telemetry: Sinus rhythm Objective Allergies Allergen Reactions Aspirin Hives, Nausea And Vomiting and Other Other Reaction(s): Mental Status Change Scheduled meds: atorvastatin, 40 mg, oral, Daily budesonide, 0.5 mg, nebulization, Daily buPROPion XL, 300 mg, oral, q AM cholecalciferol, 2,000 Units, oral, Daily clopidogrel, 75 mg, oral, Daily dapagliflozin propanediol, 10 mg, oral, Daily furosemide, 40 mg, intravenous, q12h heparin (porcine), 5,000 Units, subcutaneous, BID lactobacillus acidophilus, 1 capsule, oral, TID methylPREDNISolone sod suc (PF), 40 mg, intravenous, q8h metoprolol succinate XL, 25 mg, oral, Daily Oxygen Therapy, , inhalation, Continuous pregabalin, 75 mg, oral, BID sacubitril-valsartan, 1 tablet, oral, BID spironolactone, 50 mg, oral, Daily umeclidinium-vilanteroL, 1 puff, inhalation, Daily PRN medications: acetaminophen, ipratropium-albuteroL, melatonin, ondansetron ODT OR ondansetron Patient Vitals for the past 24 hrs: BP Temp Temp src Pulse Resp SpO2 Weight 12/21/24 0805 -- -- -- -- -- 94 % -- 12/21/24 0735 144/87 36.2 ???C (97.1 ???F) Temporal 69 16 95 % -- 12/21/24 0521 151/76 36.7 ???C (98.1 ???F) -- 67 -- 93 % -- 12/21/24 0500 -- -- -- -- -- -- 87.4 kg (192 lb 10.9 oz) 12/20/24 1605 121/58 36.8 ???C (98.3 ???F) Temporal 72 20 93 % -- 12/20/24 1230 145/75 36.7 ???C (98.1 ???F) Temporal 76 22 99 % -- Physical Examination: GENERAL: AOx2, in no acute distress. Somewhat tangential conversation, very pleasant in no acute distress HEAD: Atraumatic, normocephalic. EYES: CM, EOMI. NECK: No evidence of elevated JVP pressures. No carotid bruits CARDIAC: RRR. no murmur, rubs, or gallops. RESPIRATORY: Generally diminished breath sounds bilaterally with no increased effort of breathing. ABDOMEN: Soft, nontender, nondistended. EXTREMITIES: No lower extremity edema, peripheral pulses are 2+ bilaterally. Relevant Lab Results Labs: Lab Results Component Value Date WBC 12.79 (H) 12/20/2024 HGB 10.2 (L) 12/20/2024 HCT 34.6 (L) 12/20/2024 MCV 86.5 12/20/2024 PLT 333 12/20/2024 Lab Results Component Value Date NA 141 12/21/2024 K 3.5 12/21/2024 CL 94 (L) 12/21/2024 ANIONGAP 10 12/21/2024 BUN 32 (H) 12/21/2024 CREATININE 1.11 12/21/2024 CALCIUM 9.3 12/21/2024 MG 1.9 12/17/2024 No results found for: BILITOT , BILIDIR , ALKPHOS , AST , ALT , PROT , ALBUMIN No results found for: CHOLESTEROL , CHOLESTEROL TOTAL , TRIGLYCERIDES , HDL , LDL CHOLESTEROL , LDL DIRECT , LDL CALC No results found for: THYROID , TSH , FREE T4 No results found for: DIGOXIN LVL No results found for: HGBA1C Lab Results Component Value Date TROPONIN I 0.61 () 12/18/2024 TROPONIN I 0.88 () 12/18/2024 TROPONIN I 1.18 () 12/17/2024 TROPONIN I 1.12 () 12/17/2024 No results found for: BNP Last lab values have been reviewed with patient at today's visit. Encounter Date: 12/17/24 ECG 12 lead Result Value Ventricular Rate 91 Atrial Rate 91 IN Interval 148 QRS DURATION 76 QT Interval 396 QTC CALCULATION(BAZETT) 487 P [place] 82 R-[place] 57 T Wave [place] 122 Impression Normal sinus rhythm T wave abnormality, consider lateral ischemia Prolonged QT Abnormal ECG When compared with ECG of 17-DEC-2024 21:32, T wave inversion now evident in Lateral Confirmed by Juan C PAL, JACKSON Myers ([id number]) on 12/18/2024 1:03:17 PM Complete Echo (TTE) w/wo Imaging Agent, Strain, 3D, Bubble Study Result Date: 12/18/2024 1 1 [facility] Heart Station [address] [place] [address] [phone] (fax) Echocardiogram-[facility] Name: GERA PERDUE Study Date: 12/18/2024 12:53 PM B/P: 96 mmHg/74 mmHg HR: Date of : 1945 Location: [facility] Height: 60 in. Age: 79 year(s) Patient Room: 3135 Weight: 199 lb. Gender: Female Patient Status: InPt BSA: 1.86 m2 Indication: Dyspnea, Chest Pain, Non-STEMI, Hypertension, CAD, COPD Examination: Echocardiogram (Complete), Lumason Contrast Image Quality: Technically Difficult study Patient Consent: Procedure explained to patient Exam Details Contrast: I.V. dose of Lumason Conclusions Left Ventricle: The left ventricle is normal size. Global left ventricular systolic function is severely reduced. The EF is 25 % visually. Left ventricular wall thickness is mildly increased. Regional wall motion abnormalities (see diagram). Grade 1, mild diastolic dysfunction (abnorma (more content not included)...[facility]02-23-2025 NoteI personally saw and examined the patient on the same date of service as resident/fellow Dr Solano. I discussed the findings and therapeutic plan with the resident/fellow Dr Solano. I agree with the documentation, except for any edits/updates below. Teaching Physician's Revisions: None Samantha Olguin MD, [facility] Cardiology Progress Note Subjective Subjective: No acute events overnight. Patient was seen and examined today AM. She denies any chest pain or shortness of breath. She is requiring home oxygen 3L NC. Hypertensive. Urine output- -2L. Objective Objective: Patient Vitals for the past 24 hrs: BP Temp Temp src Pulse Resp SpO2 Weight 12/20/24 0725 165/87 36.2 ???C (97.1 ???F) Temporal 74 18 96 % -- 12/20/24 0539 -- -- -- -- -- -- 87.4 kg (192 lb 9.6 oz) 12/20/24 0408 (!) 160/93 -- -- 71 -- 99 % -- 12/20/24 0000 141/73 -- -- 69 19 97 % -- 12/19/24 2000 156/77 -- -- 79 22 96 % -- 12/19/24 1731 -- -- -- 87 25 99 % -- 12/19/24 1600 152/75 36.7 ???C (98.1 ???F) Temporal 83 22 93 % -- 12/19/24 1200 140/75 36.2 ???C (97.2 ???F) Temporal 91 23 95 % -- Physical Examination: GENERAL: AOx3, in no acute distress. HEAD: Atraumatic, normocephalic. EYES: CM, EOMI. NECK: No JVD present. CARDIAC: RRR. No murmur, rubs, or gallops. RESPIRATORY: CTAB, no increased effort of breathing. ABDOMEN: Soft, nontender, nondistended. EXTREMITIES: No lower extremity edema, peripheral pulses are 2+ bilaterally. Relevant Lab Results Encounter Date: 12/17/24 ECG 12 lead Result Value Ventricular Rate 91 Atrial Rate 91 IN Interval 148 QRS DURATION 76 QT Interval 396 QTC CALCULATION(BAZETT) 487 P [place] 82 R-[place] 57 T Wave [place] 122 Impression Normal sinus rhythm T wave abnormality, consider lateral ischemia Prolonged QT Abnormal ECG When compared with ECG of 17-DEC-2024 21:32, T wave inversion now evident in Lateral Confirmed by Juan C PAL, JACKSON Myers ([id number]) on 12/18/2024 1:03:17 PM Lab Results Component Value Date TROPONINI 0.61 (HH) 12/18/2024 Complete Echo (TTE) w/wo Imaging Agent, Strain, 3D, Bubble Study Result Date: 12/18/2024 1 1 [facility] Heart Station [address] [phone] (fax) Echocardiogram-[facility] Name: GERA PERDUE Study Date: 12/18/2024 12:53 PM B/P: 96 mmHg/74 mmHg HR: Date of : 1945 Location: [facility] Height: 60 in. Age: 79 year(s) Patient Room: 3135 Weight: 199 lb. Gender: Female Patient Status: InPt BSA: 1.86 m2 Indication: Dyspnea, Chest Pain, Non-STEMI, Hypertension, CAD, COPD Examination: Echocardiogram (Complete), Lumason Contrast Image Quality: Technically Difficult study Patient Consent: Procedure explained to patient Exam Details Contrast: I.V. dose of Lumason Conclusions Left Ventricle: The left ventricle is normal size. Global left ventricular systolic function is severely reduced. The EF is 25 % visually. Left ventricular wall thickness is mildly increased. Regional wall motion abnormalities (see diagram). Grade 1, mild diastolic dysfunction (abnormal relaxation). The changes are consistent with eccentric hypertrophy. Right Ventricle: The right ventricle is normal in size. Right ventricular systolic function appears normal. Doppler studies suggest normal right sided pressures. Left Atrium: The left atrium is normal in size. Overall Conclusions: Due to suboptimal imaging Lumason contrast was administered for opacification and better delineation of endocardial borders. Measurements Left Ventricle Label Value Normal Value LVOTd 2.2 cm (18cm - 20cm) LVOT VTI 20.9 cm (18cm - 22cm) LVOT PGmax 5 mmHg LVEF visual 25 % LVDd, 2D 5.14 cm (3.9cm - 5.3cm) LVDs, 2D 4.12 cm (2.1cm - 4cm) IVSd, 2D 1.1 cm (0.6cm - 1.1cm) LVPWd, 2D 1.02 cm (0.6cm - 0.9cm) LV Mass, 2D ASE 205.99 g LV Mass Index, 2D ASE 110.7 g/m?? (44g/m?? - 88.4g/m??) RWT, MM 0.4 (0 - 0.42) LVSVI, 2D 27.4 ml/m2 LVOT PGmean 3 mmHg LVSV_LVOT 79 ml Right Ventricle Label Value Normal Value RVDd, 2D 3.23 cm (1.9cm - 3.8cm) TAPSE 1.5 cm Left Atrium Label Value Normal Value LA Volume, BP 42 ml (22ml - 52ml) LADs, 2D 3.6 cm (2.7cm - 3.8cm) LAESV index, BP 22.6 ml/m?? Right Atrium Label Value Normal Value RA Area 9.1 cm?? Aortic Valve Label Value Normal Value AV DVI 0.74 AV VTI 27.2 cm Mitral Valve Label Value Normal Value MV E Vmax 0.76 m/s MV A Vmax 0.89 m/s MV E/A 0.85 MV E/E' lateral 7.6 MV E' lateral 0.1 m/s Tricuspid Valve Label Value Normal Value RA Pressure 8 mmHg RVSP 27 mmHg TR Vmax 2.18 m/s Aorta Label Value Normal Value AoRoot, 2D 3 cm (1.4cm - 3.8cm) Great Vessels Label Value Normal Value IVC 2.4 cm (1.2cm - 2.3cm) Valvular Assessment LVOT 0.7 - 1.1 m/sec Aortic Valve 1.0 - 1.7 m/sec Mitral Valve 0.6 - 1.3 m/sec Tricuspid Valve 0.3 - 0.7 m/sec Pulmonic Valve 0.6 - 0.9 m/sec Regurgitation No Trivial Trivial Stenosis No Max Velocity 1.17 m/sec 1.58 m/s 0.76 m/sec 0.87 (more content not included)...[facility]02-23-2025 NoteHospital Medicine Daily Progress Note - 12/20/2024 8:03 AM; Room: [address] [place] [address] Admission: 12/17/2024 7:52 PM; Length of stay: 3 days THE HOSPITALIST TEAM PREFERS TO USE [employer] FOR NON-URGENT COMMUNICATION 7AM-7PM. IF I DO NOT RESPOND WITHIN 20 MINUTES OR URGENT MATTERS, PLEASE CALL THROUGH THE SOLAR MANUFACTURER'S REPRESENTATIVE. FROM 7PM-7AM, PLEASE PAGE [phone](COVR). Code Status: DNR CC-A Barriers to Discharge: IV diuresis, IV steriods Expected Discharge Date: 2-3 days Discharge Destination: [facility] versus return home with home OT, PT recs pending Overview Patient is seen for evaluation and management of chest pain. Subjective Patient is seen and evaluated at bedside this morning. She is alert and awake, currently on 3 L nasal cannula. Patient she wears oxygen at home around 2 L at baseline. She denies any worsening shortness of breath, cough or chest pain this morning. daughter Kamryn and grand daughter are present at bedside, questions answered Physical Exam Visit Vitals BP 165/87 (BP Location: Left wrist, Patient Position: Lying) Pulse 74 Temp 36.2 ???C (97.1 ???F) (Temporal) Resp 18 Intake/Output Summary (Last 24 hours) at 12/20/2024 0803 Last data filed at 12/20/2024 0504 Gross per 24 hour Intake 1265 ml Output 2000 ml Net -735 ml Physical Exam Constitutional: Appearance: She is obese. HENT: Head: Normocephalic. Eyes: Pupils: Pupils are equal, round, and reactive to light. Cardiovascular: Rate and Rhythm: Normal rate and regular rhythm. Pulmonary: Effort: No respiratory distress. Breath sounds: No rhonchi. Abdominal: General: Bowel sounds are normal. Musculoskeletal: General: Normal range of motion. Skin: General: Skin is warm and dry. Neurological: Mental Status: She is alert. Mental status is at baseline. Comments: Oriented x2 Estimated body mass index is 37.61 kg/m??? as calculated from the following: Height as of this encounter: 1.524 m (5'). Weight as of this encounter: 87.4 kg (192 lb 9.6 oz). Active Inpatient Problems Principal Problem: Other chest pain Active Problems: NSTEMI (non-ST elevated myocardial infarction) (CMS/HCC) Coronary artery disease involving [place] coronary artery of [place] heart without angina pectoris COPD (chronic obstructive pulmonary disease) (CMS/HCC) Chronic hypoxic respiratory failure (CMS/HCC) Hx of methicillin resistant Staphylococcus aureus Hx of transient ischemic attack (TIA) Primary hypertension CKD stage 3b, GFR 30-44 ml/min (CMS/HCC) Dysphagia Acute systolic heart failure (CMS/HCC) Assessment and Plan Gera Perdue is an 79 y.o. 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 At Admission, noted with BP 128/86, heart rate 100, temp 97.7 and 98% on home dose of oxygen. Labs completed showing troponin 1.12 and potassium 3.4. CXR completed outside hospital showing no acute process. EKG completed showing normal sinus rhythm. Patient started on heparin infusion. #NSTEMI-POA #Decompensated HFrEF Presented with chest pain. Initial troponin is 1.12>1.18> 0.88, EKG nonischemic Patient was started on heparin infusion at admission, now discontinued Echocardiogram showed EF 25 % with grade 1 diastolic functions Cardiology team consulted, status post cardiac cath on 12/18 that showed calcific disease in multiple arteries with no obstruction, biventricular CHF. Started on IV diuresis with Lasix 40 mg IV twice daily, monitor intake and output and daily weights For GDMT, continued on statins, started on metoprolol succinate, aldactone and farxiga with plans to add entersto slowly, further optimization of goal-directed medical therapy for heart failure per cardiology team recommendations #History of coronary artery disease status post PCI in the past Cardiac cath showed patent stent in the third obtuse marginal branch of the left circumflex coronary artery Continue goal-directed medical therapy with statins, Plavix, has allergy listed to aspirin. 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 I discussed the findings and therapeutic plan with the resident/fellow Dr Santoro. I agree with the documentation, except for any edits/updates below. Teaching Physician's Revisions: None Samantha Olguin MD, [facility] Cardiology Progress Note Subjective Subjective: Patient was seen and examined at bedside this morning. She is currently doing well, no acute complaints. She is saturating normally on 3 to 4 L of oxygen. No complaints of chest pain, palpitations or dizziness. She has been hemodynamically stable. Objective Current Facility-Administered Medications: acetaminophen (Tylenol) tablet 650 mg, 650 mg, oral, q6h PRN, Rosa Lagos CNP, 650 mg at 12/18/24 2313 atorvastatin (Lipitor) tablet 40 mg, 40 mg, oral, Daily, Rosa Lagos CNP, 40 mg at 12/19/24 0844 budesonide (Pulmicort) 0.5 mg/2 mL nebulizer solution 0.5 mg, 0.5 mg, nebulization, Daily, Negrita Santamaria MD, 0.5 mg at 12/19/24 0804 buPROPion XL (Wellbutrin XL) 24 hr tablet 300 mg, 300 mg, oral, q AM, Rosa Lagos CNP, 300 mg at 12/19/24 0844 cholecalciferol (Vitamin D-3) tablet 2,000 Units, 2,000 Units, oral, Daily, Rosa Lagos CNP, 2,000 Units at 12/19/24 0844 clopidogrel (Plavix) tablet 75 mg, 75 mg, oral, Daily, Negrita Santamaria MD, 75 mg at 12/19/24 0844 furosemide (Lasix) injection 20 mg, 20 mg, intravenous, q12h, Negrita Santamaria MD, 20 mg at 12/19/24 0843 ipratropium-albuteroL (Duo-Neb) 0.5-2.5 mg/3 mL nebulizer solution 3 mL, 3 mL, nebulization, q6h PRN, Negrita Santamaria MD melatonin tablet 5 mg, 5 mg, oral, Nightly PRN, Rosa Lagos CNP, 5 mg at 12/19/24 0020 methylPREDNISolone sod suc (PF) (SOLU-Medrol) 40 mg injection 40 mg, 40 mg, intravenous, q8h, Negrita Santamaria MD, 40 mg at 12/19/24 0844 metoprolol succinate XL (Toprol-XL) 24 hr tablet 25 mg, 25 mg, oral, Daily, Negrita Santamaria MD, 25 mg at 12/19/24 0844 pregabalin (Lyrica) capsule 75 mg, 75 mg, oral, BID, Rosa Lagos CNP, 75 mg at 12/19/24 0844 umeclidinium-vilanteroL (Anoro Ellipta) 62.5-25 mcg/actuation inhaler 1 puff, 1 puff, inhalation, Daily, Negrita Santamaria MD, 1 puff at 12/19/24 0843 Objective: Patient Vitals for the past 24 hrs: BP Temp Temp src Pulse Resp SpO2 Weight 12/19/24 0804 -- -- -- -- 20 -- -- 12/19/24 0800 149/75 36.6 ???C (97.8 ???F) 88 25 97 % -- 12/19/24 0540 -- -- -- -- -- -- 90.5 kg (199 lb 9.6 oz) 12/19/24 0432 146/77 -- -- 80 20 -- -- 12/19/24 0400 146/83 36.2 ???C (97.2 ???F) Temporal 80 20 97 % -- 12/19/24 0000 122/65 36.4 ???C (97.5 ???F) Temporal 84 19 96 % -- 12/18/24 2300 171/89 -- -- 94 26 -- -- 12/18/24 2230 121/65 -- -- 81 20 -- -- 12/18/24 2200 137/88 -- -- 84 21 95 % -- 12/18/24 2130 116/65 -- -- 85 21 -- -- 12/18/24 2100 122/68 -- -- 87 21 -- -- 12/18/242030 124/62 -- -- 89 20 -- -- 12/18/242014 133/66 -- -- 87 22 95 % -- 12/18/241999 119/60 36.5 ???C (97.7 ???F) Temporal 88 21 93 % -- 12/18/24 1946 127/69 -- -- 88 24 95 % -- 12/18/24 1931 117/72 -- -- 87 22 95 % -- 12/18/24 1900 115/66 -- -- 90 24 -- -- 12/18/24 1830 135/80 -- -- 90 23 92 % -- 12/18/24 1815 143/88 -- -- 90 18 97 % -- 12/18/24 1800 (!) 143/93 -- -- 92 20 98 % -- 12/18/24 1745 124/87 -- -- 91 19 98 % -- 12/18/24 1730 107/72 -- -- 83 17 100 % -- 12/18/24 1715 (!) 128/112 -- -- 77 21 96 % -- 12/18/24 1700 114/68 -- -- 86 19 97 % -- 12/18/24 1656 (!) 135/99 -- -- 79 21 98 % -- 12/18/24 1636 100/63 -- -- 85 18 94 % -- 12/18/24 1540 (!) 133/111 -- -- 89 12 97 % -- 12/18/24 1540 -- -- -- -- -- 100 % -- 12/18/24 1200 96/74 -- -- 87 25 99 % -- Physical Examination: GENERAL: AOx3, in no acute distress. HEAD: Atraumatic, normocephalic. EYES: CM, EOMI. CARDIAC: RRR. No murmur, rubs, or gallops. RESPIRATORY: Bilateral inspiratory crackles and expiratory wheezing ABDOMEN: Soft, nontender, nondistended. EXTREMITIES: No significant lower extremity edema, peripheral pulses are 2+ bilaterally. NEURO: No focal deficits Relevant cardiac testing Encounter Date: 12/17/24 ECG 12 lead Result Value Ventricular Rate 91 Atrial Rate 91 IN Interval 148 QRS DURATION 76 QT Interval 396 QTC CALCULATION(BAZETT) 487 P [place] 82 R-[place] 57 T Wave [place] 122 Impression Normal sinus rhythm T wave abnormality, consider lateral ischemia Prolonged QT Abnormal ECG When compared with ECG of 17-DEC-2024 21:32, T wave inversion now evident in Lateral Confirmed by Juan C PAL, JACKSON Myers ([id number]) on 12/18/2024 1:03:17 PM Lab Results Component Value Date TROPONINI 0.61 (HH) 12/18/2024 Complete Echo (TTE) w/wo Imaging Agent, Strain, 3D, Bubble Study Result Date: 12/18/2024 1 1 [facility] (more content not included)...[facility]02-22-2025 NoteHospital Medicine Daily Progress Note - 12/19/2024 8:03 AM; Room: [address] [place] [address] Admission: 12/17/2024 7:52 PM; Length of stay: 2 days THE HOSPITALIST TEAM PREFERS TO USE [employer] FOR NON-URGENT COMMUNICATION 7AM-7PM. IF I DO NOT RESPOND WITHIN 20 MINUTES OR URGENT MATTERS, PLEASE CALL THROUGH THE SOLAR MANUFACTURER'S REPRESENTATIVE. FROM 7PM-7AM, PLEASE PAGE [phone](COVR). Code Status: Full Code Barriers to Discharge: IV diuresis, IV steriods Expected Discharge Date: 2-3 days Discharge Destination: [facility] facility versus return home with home OT, PT recs pending Overview Patient is seen for evaluation and management of chest pain. Subjective Patient is seen and evaluated at bedside this morning. She is alert and awake, currently on 3 L nasal cannula. Patient she wears oxygen at home around 2 L at baseline. She denies any worsening shortness of breath, cough or chest pain this morning. Physical Exam Visit Vitals BP 146/77 Pulse 80 Temp 36.2 ???C (97.2 ???F) (Temporal) Resp 20 Intake/Output Summary (Last 24 hours) at 12/19/2024 0803 Last data filed at 12/19/2024 0000 Gross per 24 hour Intake 988.71 ml Output 310 ml Net 678.71 ml Physical Exam Constitutional: Appearance: She is obese. HENT: Head: Normocephalic. Eyes: Pupils: Pupils are equal, round, and reactive to light. Cardiovascular: Rate and Rhythm: Normal rate and regular rhythm. Pulmonary: Effort: No respiratory distress. Breath sounds: No rhonchi. Abdominal: General: Bowel sounds are normal. Musculoskeletal: General: Normal range of motion. Skin: General: Skin is warm and dry. Neurological: Mental Status: She is alert. Mental status is at baseline. Comments: Oriented x2 Estimated body mass index is 38.98 kg/m??? as calculated from the following: Height as of this encounter: 1.524 m (5'). Weight as of this encounter: 90.5 kg (199 lb 9.6 oz). Active Inpatient Problems Principal Problem: Other chest pain Active Problems: NSTEMI (non-ST elevated myocardial infarction) ([facility]) Coronary artery disease involving [place] coronary artery of [place] heart without angina pectoris COPD (chronic obstructive pulmonary disease) ([facility]) Chronic hypoxic respiratory failure ([facility]) Hx of methicillin resistant Staphylococcus aureus Hx of transient ischemic attack (TIA) Primary hypertension CKD stage 3b, GFR 30-44 ml/min ([facility]) Dysphagia Acute systolic heart failure ([facility]) Assessment and Plan Gera Perdue is an 79 y.o. 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 At Admission, noted with BP 128/86, heart rate 100, temp 97.7 and 98% on home dose of oxygen. Labs completed showing troponin 1.12 and potassium 3.4. CXR completed outside hospital showing no acute process. EKG completed showing normal sinus rhythm. Patient started on heparin infusion. #NSTEMI-POA #Decompensated HFrEF Presented with chest pain. Initial troponin is 1.12>1.18> 0.88 EKG nonischemic Patient was started on heparin infusion at admission, now discontinued Echocardiogram showed EF 25 % with grade 1 diastolic functions Cardiology team consulted, status post cardiac cath on 12/18 that showed calcific disease in multiple arteries with no obstruction, biventricular CHF. Started on IV diuresis with Lasix 20 mg IV twice daily, monitor intake and output and daily weights For GDMT, continued on statins, started metoprolol succinate 25 mg daily further optimization of goal-directed medical therapy for heart failure per cardiology team recommendations #History of coronary artery disease status post PCI in the past Cardiac cath showed patent stent in the third obtuse marginal branch of the left circumflex coronary artery Continue goal-directed medical therapy with statins, Plavix, has allergy listed to aspirin. 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 General Subjective: friendly and cooperative, reports BLE weakness, fatigue and sob , nsg aware, vitals stable Patient Active Problem List Diagnosis NSTEMI (non-ST elevated myocardial infarction) ([facility]/HCC) Other chest pain Coronary artery disease involving [place] coronary artery of [place] heart without angina pectoris COPD (chronic obstructive pulmonary disease) ([facility]/HCC) Chronic hypoxic respiratory failure ([facility]/HCC) Hx of methicillin resistant Staphylococcus aureus Hx of transient ischemic attack (TIA) Primary hypertension CKD stage 3b, GFR 30-44 ml/min ([facility]/HCC) Dysphagia Acute systolic heart failure ([facility]/HCC) Past Medical History: Diagnosis Date COPD (chronic obstructive pulmonary disease) ([facility]/HCC) Hypertension Past Surgical History: Procedure Laterality Date COLON SURGERY Precautions Precautions Medical Precautions: fall risk, oxygen (4LO2/ baseline at home 3LO2) Pain Pain Assessment Pain Assessment: No/denies pain Cognition Cognition Overall Cognitive Status: Within Functional Limits General Assessment General Assessment Hearing: (mild [place]) Hand Dominance: Right Home Living Home Living Type of Home: Mobile home Lives With: (daughter and two adult grandchildren) Home Adaptive Equipment: Hospital bed, Rollator, Oxygen (sc, gb, hhs, rts) Home Layout: One level Home Access: Ramped entrance Bathroom Shower/Tub: Tub/shower unit Prior Level of Function Prior Function Level of [place]: Needs assistance with ADLs, Needs assistance with homemaking Prior Functional Mobility: Independent with rollator Receives Help From: Family, uniform attendant (INVESTIGATOR UTILITY BILL COMPLAINTS 2x/w 2hr/d) Prior IADLs IADL History Homemaking Responsibilities: Yes Meal Prep Responsibility: Secondary Static Sitting Balance Static Sitting Balance Static Sitting-Level of Assistance: Independent Dynamic Sitting Balance Dynamic Sitting Balance Dynamic Sitting Balance-Level of Assistance: Moderate assistance Static Standing Balance Static Standing Balance Static Standing-Level of Assistance: Moderate assistance (rw) ADL ADL LE Dressing Assistance: Moderate Transfers Transfers Transfer: (mod A supine to sit EOB, mod A with RW: sit to stand , take a few steps to chair and sit) Objective General Assessments Activity Tolerance Endurance: Stage II Vision - Basic Assessment Current Vision: No visual deficits Sensation Light Touch: No apparent deficits Coordination Movements are Fluid and Coordinated: Yes Extremity Assessments RUE Assessment RUE Assessment: Within Functional Limits LUE Assessment LUE Assessment: Within Functional Limits Outcome Assessments AM-PAC 6 Clicks Putting on and taking off regular lower body clothing?: A Lot (Mod/Max Assist) Bathing(Including washing,rinsing,drying)?: A Lot (Mod/Max Assist) Toileting, which includes using the toilet,bedpan,or urinal?: A Lot (Mod/Max Assist) Putting on and taking off regular upper body clothing?: A Little (Min Assist/Contact Guard/Supervision) Taking care of personal grooming such as brushing teeth?: None (Independent) Eating meals?: None (Independent) Total Score OT [facility]: 17 Assessment/Plan OT Assessment OT Impairments: Decreased ADL status, Decreased endurance, Decreased functional mobility OT Assessment/COMPUTER CLERK Summary: (needs skilled OT due to weakness and fatigue) Prognosis: Good Evaluation/Treatment Tolerance: Patient limited by fatigue Medical Staff Made Aware: Yes OT Education/Comments: (bed mob, LB adl and adl transfer safety / techique with good return demo) Plan Level of assist: 1 assist Treatment Interventions: ADL retraining, Functional transfer training, Endurance training, Patient/family training, Neuromuscular reeducation, Compensatory technique education OT Plan: Skilled OT OT Frequency: 5 times per week OT Discharge Recommendations: [facility] (possible return home with home OT if breathing/endurance improves,) OT - Discharge Recommendations Placed: Yes OT Goals Multi-Disciplinary Problems (from Occupational Therapy) Active Problems Problem: Balance Start Date: 12/18/24 Goal Start Date Expected End Date End Date LTG - Patient will maintain stand balance to allow for safe mobility 12/18/24 01/15/25 -- Problem: Bathing Start Date: 12/18/24 Goal Start Date Expected End Date End Date LTG - Patient will utilize adaptive techniques to bathe body with SBA 12/18/24 01/15/25 -- Problem: Dressings Lower Extremities Start Date: 12/18/24 Goal Start Date Expected End Date End Date LTG - Patient will dress lower body with minimal assistance 0 (more content not included)...[facility]02-21-2025 NoteHospital Medicine Daily Progress Note - 12/18/2024 9:47 AM; Room: [address] [place] [address]- Admission: 12/17/2024 7:52 PM; Length of stay: 1 days THE HOSPITALIST TEAM PREFERS TO USE [employer] FOR NON-URGENT COMMUNICATION 7AM-7PM. IF I DO NOT RESPOND WITHIN 20 MINUTES OR URGENT MATTERS, PLEASE CALL THROUGH THE SOLAR MANUFACTURER'S REPRESENTATIVE. FROM 7PM-7AM, PLEASE PAGE [phone](COVR). Code Status: DNR CC-A Barriers to Discharge: cardiology work up, hypoxic respiratory failure Expected Discharge Date: 2-3 days Discharge Destination: TBD Overview Patient is seen for evaluation and management of chest pain. Subjective Patient is seen and evaluated at bedside this morning. She is alert and awake. Able to answer most of the questions, appears confused intermittently. She denies any chest pain this morning, denies any worsening of cough or shortness of breath Denies any fevers or chills at home Patient stated that she is recently started on antibiotic for UTI, however does not recall the name and dose of the medications. Tried calling daughter, no one picked up the phone call. Physical Exam Visit Vitals BP 123/73 (BP Location: Left arm, Patient Position: Lying) Pulse 89 Temp 36.2 ???C (97.2 ???F) (Temporal) Resp 23 Intake/Output Summary (Last 24 hours) at 12/18/2024 0918 Last data filed at 12/18/2024 0059 Gross per 24 hour Intake 56.5 ml Output -- Net 56.5 ml Physical Exam Constitutional: Appearance: She is obese. HENT: Head: Normocephalic. Eyes: Pupils: Pupils are equal, round, and reactive to light. Cardiovascular: Rate and Rhythm: Normal rate and regular rhythm. Pulmonary: Effort: No respiratory distress. Breath sounds: No rhonchi. Abdominal: General: Bowel sounds are normal. Musculoskeletal: General: Normal range of motion. Skin: General: Skin is warm and dry. Neurological: Mental Status: She is alert. Mental status is at baseline. Comments: Oriented x2 Estimated body mass index is 38.94 kg/m??? as calculated from the following: Height as of this encounter: 1.524 m (5'). Weight as of this encounter: 90.4 kg (199 lb 6.4 oz). Active Inpatient Problems Principal Problem: Other chest pain Active Problems: Coronary artery disease involving klawock coronary artery of klawock heart without angina pectoris COPD (chronic obstructive pulmonary disease) (CMS/[facility]) Chronic hypoxic respiratory failure ([facility]) Hx of methicillin resistant Staphylococcus aureus Hx of transient ischemic attack (TIA) Primary hypertension CKD stage 3b, GFR 30-44 ml/min ([facility]) Dysphagia Assessment and Plan Gera Perdue is an 79 y.o. 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 At Admission, noted with BP 128/86, heart rate 100, temp 97.7 and 98% on home dose of oxygen. Labs completed showing troponin 1.12 and potassium 3.4. CXR completed outside hospital showing no acute process. EKG completed showing normal sinus rhythm. Patient started on heparin infusion. #NSTEMI Presented with chest pain, type 1 vs type 2 Initial troponin is 1.12>1.18> 0.88 EKG nonischemic Patient started on heparin infusion at admission Echocardiogram ordered and read is pending Cardiology team is consulted, awaiting their evaluation to proceed with cardiac catheterization if deemed necessary #History of coronary artery disease status post PCI in the past Continue goal-directed medical therapy with statins, on Plavix at home that is currently held #Acute on chronic hypoxic respiratory failure At baseline wears 2 L nasal cannula Currently requiring 3 to 4 L, has history of COPD, continue supplemental oxygen as needed to maintain oxygen saturation greater than 92 percentile X-ray chest ordered. 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 s/p 6-week of antibiotics Febrile with no leukocytosis #History of TIA No focal neurological deficit noted On statin and plavix at home #CKD stage IIIb Kidney function stable at baseline Continue to monitor, avoid nephrotoxic agents/contrast agents #Essential hypertension Not on any blood pressure medications Continue to monitor without medications #Normocytic anemia Hemoglobin stable #History of dysphagia At baseline dose of diet with mildly thickened liquids #Recent UTI Patient she was prescribed antibiotics outpatient, unclear of name and dosage Denies any symptoms, repeat UA today VTE Prophylaxis: IV heparin Scheduled Meds (more content not included)...[facility] 12-18-2024 NoteCase was discussed with the MARIA D on 12/17/2024. I agree with the history, physical, assessment, and plan of care. I discussed the findings and therapeutic plan. I agree with the documentation, except for any updates below. Hi Johnson MDUnMemorial Health [facility]02-21-[facility] Note-Patient currently n.p.o. 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 at midnight for possible cardiac cath -Most recent echocardiogram from 01/29/2024 shows an EF of 65 to 70% -CXR at outside hospital shows no acute process -EKG shows normal sinus rhythm -Cardiology consultUnMemorial Health System [facility]02-20-2025 NoteHospital Medicine History and Physical 12/18/2024 12:00 AM THE HOSPITALIST TEAM PREFERS TO USE [employer] FOR NON-URGENT COMMUNICATION 7AM-7PM. IF I DO NOT RESPOND WITHIN 20 MINUTES OR URGENT MATTERS, PLEASE CALL THROUGH THE SOLAR MANUFACTURER'S REPRESENTATIVE. FROM 7PM-7AM, PLEASE PAGE [phone](COVR). Chief Complaint Chief Complaint Patient presents with Chest Pain Abdominal Pain Shortness of Breath History of Present Illness Gera Perdue is an 79 y.o. 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 Reports that she started to have chest pain this morning that was midsternal and radiated down her left arm. She states associated diaphoresis, lightheadedness, dizziness and nausea. She also endorses some mild shortness of breath. Patient reports that she has had stenting in the past. Patient was directly transferred to our emergency department. She was found of a blood pressure of 128/86, heart rate 100, temp 97.7 and 98% on home dose of oxygen. Labs completed showing troponin 1.12 and potassium 3.4. CXR completed outside hospital showing no acute process. EKG completed showing normal sinus rhythm. Patient started on heparin infusion. I personally spoke with patient and she would like to be a DNR CCA without intubation. This is confirmed with paperwork brought from her facility. Review of System and Physical Exam Temp: [36.5 ???C (97.7 ???F)] 36.5 ???C (97.7 ???F) Heart Rate: [95-100] 98 Resp: [20-26] 21 BP: (128-140)/(86-106) 140/106 Physical Exam Vitals reviewed. Constitutional: Appearance: She is normal weight. HENT: Head: Normocephalic. Mouth/Throat: Mouth: Mucous membranes are dry. Pharynx: Oropharynx is clear. Eyes: Conjunctiva/sclera: Conjunctivae normal. Cardiovascular: Rate and Rhythm: Normal rate and regular rhythm. Pulses: Normal pulses. Heart sounds: Normal heart sounds. Pulmonary: Effort: Pulmonary effort is normal. Breath sounds: Normal breath sounds. Abdominal: General: Abdomen is flat. Bowel sounds are normal. Palpations: Abdomen is soft. Musculoskeletal: General: Normal range of motion. Skin: General: Skin is warm and dry. Capillary Refill: Capillary refill takes less than 2 seconds. Neurological: General: No focal deficit present. Mental Status: She is alert. Mental status is at baseline. Psychiatric: Mood and Affect: Mood normal. Review of Systems Constitutional: Positive for diaphoresis. Negative for chills, fatigue and fever. HENT: Negative for congestion and dental problem. Respiratory: Positive for chest tightness and shortness of breath. Cardiovascular: Positive for chest pain. Negative for palpitations. Gastrointestinal: Positive for nausea. Negative for abdominal pain, constipation, diarrhea and vomiting. Genitourinary: Negative for difficulty urinating and dyspareunia. Musculoskeletal: Negative for arthralgias and back pain. Skin: Negative for color change and pallor. Neurological: Positive for dizziness, light-headedness and numbness. Negative for seizures, syncope, speech difficulty and headaches. Psychiatric/Behavioral: Negative for agitation and behavioral problems. Assessment and Plan Assessment & Plan Other chest pain -Troponin 1.12, will continue to trend -Continue low intensity heparin infusion -N.p.o. 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 angina pectoris -Continue GDMT, s/p PCI in the past COPD (chronic obstructive pulmonary disease) (CMS/HCC) Chronic hypoxic respiratory failure (CMS/HCC) -Patient wears 2 to 3 L of oxygen at baseline which is what she is currently at -Continue inhalers Hx of methicillin resistant Staphylococcus aureus -Patient with 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 but reports dysphagia at baseline, is on a soft diet with mildly thickened liquids VTE Prophylaxis: IV heparin ----- Focus of this inpatient stay will remain on problems that need acute care setting for care. We will review available studies and will order additional labs, imaging and other studies as appropriate. As needed medicines are ordered as appropr (more content not included)... [facility]12-30-2024 History of Present illness Narrative* Chano Presley, - 10/26/2024 4:50 PM EST Patient Name: Gera Perdue Date of : 1945 Date of Service: 10/26/2024 Facility: [facility] Type of Visit: Skilled Visit Subjective Gera Perdue is a 78 y.o. female [facility]. Gera is participating in therapy. Her pain is better but still using pain medications. Her insurance is cutting her October 28. She will be discharged with home health. She had x-rays done but nocompression fractures seen. Allergies: Aspirin, Oxycodone, and Oxycodone-acetaminophen [...] right-upper field reveals decreased breath sounds. Examination ofthe left-upper field reveals decreased breath sounds. Examination of the right-middle field revealsdecreased breath sounds. Examination of the left-middle field reveals decreased breath sounds. [place] of the right-lower field reveals decreased breath [...] Chronic obstructive pulmonary disease with acute exacerbation ([facility]) 3. Sleep apnea, unspecified type 4. Moderate episode of recurrent major depressive disorder ([facility]) 5. 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 6. Closed wedge [...] BY: Chano Presley DO documented in this encounterDiley [facility] Center12-24-2024 History of Present illness Narrative* Chano Presley DO - 10/20/2024 2:59 PM EST Patient Name: Gera Perdue Date of : 1945 Date of Service: 10/20/2024 Facility: [facility] Type of Visit: Skilled Visit Subjective Gera Perdue is a 78 y.o. female [facility]. Gera therapy and [...] lower thoracic spine but the documentation from thehospital says it is T6. She does have b/l flank pain. She is using percocet but said she used vicodin in the past and it worked better. The [employer] NUCLEAR MEDICINE MEDICAL DIRECTOR saw her and her med list from [...] right-upper field reveals decreased breath sounds. Examination ofthe left-upper field reveals decreased breath sounds. Examination of the right-middle field revealsdecreased breath sounds. Examination of the left-middle field reveals decreased breath sounds. [place] of the right-lower field reveals decreased breath [...] Moderate episode of recurrent major depressive disorder ([facility]) 6. Encephalopathy, unspecified type I am going to check an x-ray of her thoracic and lumbar spine through the x-ray service here at thefacility since we have been unable to get [...] BY: Chano Presley DO documented in this encounterDiley Ridge Medical Center12-20-2024 History of Present illness Narrative* Chano Presley DO - 10/16/2024 3:17 PM EST Patient Name: Gera Perdue Date of : 1945 Date of Service: 10/16/2024 Facility: [facility] Type of Visit: Admission H&P Subjective Gera Perdue is a 78 y.o. female [facility] for [facility] H&P. Gera presents to [facility] for therapy. She was recently admitted to the [facility] for a COPD exacerbation and back [...] a very good historian. She thinks she hadheart attack and has had a cardiac catheterization [...] Medical History: Diagnosis Date Acute respiratory failure ([facility]) 10/05/2023 Chronic kidney disease (CKD), stage III (moderate) ([facility]) Compression fracture of C7 vertebra ([facility]) 10/18/2023 COPD (chronic obstructive pulmonary disease) ([facility]) Depression Eczema GERD (gastroesophageal reflux disease) Hyperlipidemia Hypertension MRSA bacteremia 10/15/2023 Osteoarthritis Pulmonary hypertension ([facility]) Shortness of breath 02/19/2024 Sleep apnea TIA (transient ischemic attack) Past Surgical History: Procedure Laterality Date BRONCHOSCOPY ALVEOLAR LAVAGE N/A 02/24/2024 Performed by Elsa Quinonez MD at [facility] No family history on file. Allergies: Aspirin, Oxycodone, and Oxycodone-acetaminophen Code Status: DNRCC-A The following portions of the patient's history were reviewed and updated as appropriate: allergies, current medications, past family history, past medical history, past social history, past surgicalhistory, problem list, and medication reconciliation was completed including current medication andpost discharge medication. Review of Systems Objective BP [...] sounds. Decreased breath sounds present. No wheezing, rhonchior rales. Comments: Wearing O2 Abdominal: General: Bowel [...] Chronic obstructive pulmonary disease with acute exacerbation ([facility]) 2. Sleep apnea, unspecified type 3. Anxiety 4. Insomnia, unspecified type 5. Closed fracture of sixth thoracic vertebra with routine healing, unspecified fracture morphology, subsequent encounter 6. 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 Admit to [facility] for therapies. Continue medications for the hospital. [...] 4% patch every 12 hours as needed. Limit1 per day. ELECTRONICALLY SIGNED BY: Chano Presley DO documented in this encounterDiley Ridge Medical Center12-10-2024 History of Present illness Narrative* Gustavo Salas DO - 10/06/2024 2:30 PM EST Images from the original note were not included. Subjective Patient ID: Gera Perdue is a 78 y.o. female who presents for Hospital Follow-up. HPI Review of Systems Objective Physical Exam Assessment/Plan Problem List Items Addressed This Visit Failed back syndrome COPD (chronic obstructive pulmonary disease) ([facility]) - Primary Foraminal stenosis of lumbar region NO show documented in this encounterSaint John's Health [id number] History of Present illness Narrative* HAMLET MedeirosM - 07/23/2024 1:20 PM EDT Patient: Gera Perdue : 1945 PCP: Gustavo [...] hip pain 03/25/2024 ARTURO (acute kidney injury) ([facility]) 10/05/2023 Anticoagulated 08/02/2019 Anxiety Arthritis At risk for falls Attention to colostomy ([facility]) 05/27/2014 Carotid stenosis Carotid stenosis, bilateral 03/25/2024 Chronic respiratory failure with hypoxia ([facility]) 01/06/2024 Chronic ulcer of left foot with fat layer exposed ([facility]) Closed head injury 03/25/2024 Closed intertrochanteric fracture of left hip ([facility]) 03/25/2024 Cognitive communication deficit 12/31/2022 Colon polyps Colostomy status ([facility]) 02/25/2015 Constipation Contusion of hip 03/25/2024 COPD (chronic obstructive pulmonary disease) ([facility]) COPD with asthma overlap Cough with expectoration 01/06/2024 Decubitus ulcer of left buttock, stage 1 03/25/2024 Depression ([facility]) Dermatitis Diabetic neuropathy ([facility]) 03/25/2024 Difficulty in walking, not elsewhere classified 08/20/2023 Diverticulitis of intestine, part unspecified, without perforation or abscess without bleeding 12/31/2022 Diverticulosis Encephalopathy Essential tremor 03/25/2024 Facet arthritis of lumbosacral region 03/25/2024 Failed back surgical syndrome Fall Falls frequently 08/20/2023 Female incontinence Frequent UTI 01/06/2024 GERD (gastroesophageal reflux disease) Heart disease History of diverticulitis 02/25/2015 HLD (hyperlipidemia) ([facility]) HTN (hypertension) ([facility]) Impaired mobility and ADLs 03/25/2024 Inability to perform activities of daily living 03/25/2024 Incisional hernia without obstruction or gangrene Insomnia Intertrigo 12/31/2022 Intrinsic (allergic) eczema 08/21/2023 Leukocytosis 03/25/2024 Longstanding persistent atrial fibrillation ([facility]) 08/02/2019 Lower extremity edema Major depressive disorder, recurrent, unspecified ([facility]) 12/31/2022 Microcytic anemia 01/06/2024 Mild congestive heart failure ([facility]) 03/25/2024 Muscle weakness (generalized) 12/31/2022 Nausea and vomiting 03/25/2024 Neck pain Nicotine dependence, unspecified, uncomplicated 12/31/2022 Nutritional deficiency, unspecified 08/27/2023 Obesity Obesity OM (onychomycosis) Osteoarthritis of left hip 03/25/2024 Osteoporosis ([facility]) Osteoporosis ([facility]) Personal history of transient ischemic attack (TIA), and cerebral infarction without residual deficits 12/31/2022 Physical deconditioning 03/25/2024 Plantar verruca Pneumonia of right lower lobe due to infectious organism 02/19/2024 Polyneuropathy, unspecified 08/20/2023 Pulmonary hypertension ([facility]) 12/31/2022 S/P right coronary artery (RCA) [...] mouth every 7 (seven) days Take in themorning with a full glass of water, on [...] by mouth every 12 (twelve) hours., Disp: ,Rfl: cholecalciferol (Vitamin D-3) 50 MCG (2000 UT) capsule, Take 1 capsule (50 mcg) by mouth in the morning., Disp: 90 capsule, Rfl: 3 clopidogrel (Plavix) 75 MG tablet, Take 1 tablet (75 mg) by mouth 1 (one) time each day at the sametime, Disp: 90 tablet, Rfl: 3 doxycycline (Vibramycin) 100 MG capsule, TAKE 1 CAPSULE BY MOUTH 2 TIMES A DAY FOR 7 DAYS, Disp: , Rfl: famotidine (Pepcid) 40 MG tablet, Take 0.5 tablets (20 mg) by mouth Daily, Disp: 90 tablet, Rfl: 2 Lvmdtrdwzfj-Qdypzfzwb-Ztokwu (Trelegy Ellipta) 100-62.5-25 MCG/ACT aerosol powder , Inhale 1 puff in the morning., Disp: 1 each, Rfl: 3 Pqsophjmegq-Vxhulgawo-Qvsdkm (Trelegy Ellipta) 200-62.5-25 MCG/ACT aerosol powder , Inhale 1 puff Daily, Disp: , Rfl: furosemide (Lasix) 40 MG tablet, 1 /2 tab=60 mg once daily, Disp: 135 tablet, Rfl: 3 furosemide (Lasix) 40 MG tablet, Take 1 tablet (40 mg) by mouth Daily, Disp: 30 tablet, Rfl: 11 ipratropium-albuterol (Duo-Neb) 0.5-2.5 mg/3 mL nebulizer solution, Take 3 mL by nebulization every12 (twelve) hours., Disp: 180 mL, Rfl: 3 [...] Disp: 90 tablet, Rfl: 3 nystatin (Mycostatin) [id number] UNIT/GM powder, Apply topically 2 (two) times a day, Disp: 60 g, Rfl: 1 pantoprazole (ProtoNix) 40 MG EC tablet, Take 1 tablet (40 mg) by mouth in the morning. Take beforemeals., Disp: 90 tablet, Rfl: 3 PARoxetine (Paxil) [...] Insecurity: No Food Insecurity (02/19/2024) Received from [facility], [facility] Hunger Screening Within the past 12 months we worried whether our food would run out before we got money to buy more.: Never True Within the past 12 months the food we bought just didn't last and we didn't have money to get more.: Never True Transportation Needs: No Transportation Needs (02/19/2024) [facility] PRAPARE - Transportation Lack of Transportation (Medical): No Lack of Transportation (Non-Medical): No Physical Activity: Not on file Stress: Not on file Social Connections: Not on file Intimate Partner Violence: Not on file Housing Stability: Low Risk (02/19/2024) [facility] Housing Instability Are you worried or concerned [...] through 10. negative hair growth b/l feet. Plus1 pitting edema to bilateral ankles and feet VASC: Negative DP and negative PT pedal pulses NEURO: Gross sensation intact to bilateral feet ORTHO: Positive pain on palpation to nails 1 through 10 Positive pain on palpation lateral left ankle joint capsule and synovium Minimal pain on palpation to right retrocalcaneal bursa as well as Achilles tendon with negative palpable [place] ASSESSMENT 1. Other specified disorders of synovium, [...] procedure including infection,damage or rupture to soft tissuestructures and steroid flare. Pt understood and consented. This is the patients 2nd injection Kalyan Barboza DPM documented in this encounterSaint John's Health [id number] History of Present illness Narrative* Kalyan Barboza DPM - 07/02/2024 1:20 PM EDT Patient: Gera Perdue : 1945 PCP: Gustavo Salas, SUBJECTIVE This is a 78 y.o. female that presents today with a CC of right heel pain. Patient states heel painfor the past 6 months and states it [...] hip pain 03/25/2024 ARTURO (acute kidney injury) ([facility]) 10/05/2023 Anticoagulated 08/02/2019 Anxiety Arthritis At risk for falls Attention to colostomy ([facility]) 05/27/2014 Carotid stenosis Carotid stenosis, bilateral 03/25/2024 Chronic respiratory failure with hypoxia ([facility]) 01/06/2024 Chronic ulcer of left foot with fat layer exposed ([facility]) Closed head injury 03/25/2024 Closed intertrochanteric fracture of left hip ([facility]) 03/25/2024 Cognitive communication deficit 12/31/2022 Colon polyps Colostomy status ([facility]) 02/25/2015 Constipation Contusion of hip 03/25/2024 COPD (chronic obstructive pulmonary disease) ([facility]) COPD with asthma overlap Cough with expectoration 01/06/2024 Decubitus ulcer of left buttock, stage 1 03/25/2024 Depression ([facility]) Dermatitis Diabetic neuropathy ([facility]) 03/25/2024 Difficulty in walking, not elsewhere classified 08/20/2023 Diverticulitis of intestine, part unspecified, without perforation or abscess without bleeding 12/31/2022 Diverticulosis Encephalopathy Essential tremor 03/25/2024 Facet arthritis of lumbosacral region 03/25/2024 Failed back surgical syndrome Fall Falls frequently 08/20/2023 Female incontinence Frequent UTI 01/06/2024 GERD (gastroesophageal reflux disease) Heart disease History of diverticulitis 02/25/2015 HLD (hyperlipidemia) ([facility]) HTN (hypertension) ([facility]) Impaired mobility and ADLs 03/25/2024 Inability to perform activities of daily living 03/25/2024 Incisional hernia without obstruction or gangrene Insomnia Intertrigo 12/31/2022 Intrinsic (allergic) eczema 08/21/2023 Leukocytosis 03/25/2024 Longstanding persistent atrial fibrillation ([facility]) 08/02/2019 Lower extremity edema Major depressive disorder, recurrent, unspecified ([facility]) 12/31/2022 Microcytic anemia 01/06/2024 Mild congestive heart failure ([facility]) 03/25/2024 Muscle weakness (generalized) 12/31/2022 Nausea and vomiting 03/25/2024 Neck pain Nicotine dependence, unspecified, uncomplicated 12/31/2022 Nutritional deficiency, unspecified 08/27/2023 Obesity Obesity OM (onychomycosis) Osteoarthritis of left hip 03/25/2024 Osteoporosis ([facility]) Osteoporosis ([facility]) Personal history of transient ischemic attack (TIA), and cerebral infarction without residual deficits 12/31/2022 Physical deconditioning 03/25/2024 Plantar verruca Pneumonia of right lower lobe due to infectious organism 02/19/2024 Polyneuropathy, unspecified 08/20/2023 Pulmonary hypertension ([facility]) 12/31/2022 S/P right coronary artery (RCA) stent placement S/P total left hip arthroplasty Sinus tarsi syndrome of left foot Sleep apnea Small bowel obstruction ([facility]) 08/01/2019 Smoker SOB (shortness of breath) [...] mouth every 7 (seven) days Take in themorning with a full glass of water, on [...] by mouth every 12 (twelve) hours., Disp: ,Rfl: cholecalciferol (Vitamin D-3) 50 MCG (2000 UT) capsule, Take 1 capsule (50 mcg) by mouth in the morning., Disp: 90 capsule, Rfl: 3 clopidogrel (Plavix) 75 MG tablet, Take 1 tablet (75 mg) by mouth 1 (one) time each day at the sametime, Disp: 90 tablet, Rfl: 3 doxycycline (Vibramycin) 100 MG capsule, TAKE 1 CAPSULE BY MOUTH 2 TIMES A DAY FOR 7 DAYS, Disp: , Rfl: famotidine (Pepcid) 40 MG tablet, Take 0.5 tablets (20 mg) by mouth Daily, Disp: 90 tablet, Rfl: 2 Fauknobwebf-Aarwbkmem-Lrljeu (Trelegy Ellipta) 100-62.5-25 MCG/ACT aerosol powder , Inhale 1 puff in the morning., Disp: 1 each, Rfl: 3 Abstbcvfkgz-Cviqcgtsf-Tlnivr (Trelegy Ellipta) 200-62.5-25 MCG/ACT aerosol powder , Inhale 1 puff Daily, Disp: , Rfl: furosemide (Lasix) 40 MG tablet, 1 1/2 tab=60 mg once daily, Disp: 135 tablet, Rfl: 3 furosemide (Lasix) 40 MG tablet, Take 1 tablet (40 mg) by mouth Daily, Disp: 30 tablet, Rfl: 11 ipratropium-albuterol (Duo-Neb) 0.5-2.5 mg/3 mL nebulizer solution, Take 3 mL by nebulization every12 (twelve) hours., Disp: 180 mL, Rfl: 3 [...] Disp: 90 tablet, Rfl: 3 nystatin (Mycostatin) 600751 UNIT/GM powder, Apply topically 2 (two) times a day, Disp: 60 g, Rfl: 1 pantoprazole (ProtoNix) 40 MG EC tablet, Take 1 tablet (40 mg) by mouth in the morning. Take beforemeals., Disp: 90 tablet, Rfl: 3 PARoxetine (Paxil) [...] Insecurity: No Food Insecurity (02/19/2024) Received from [facility], [facility] Hunger Screening Within the past 12 months we worried whether our food would run out before we got money to buy more.: Never True Within the past 12 months the food we bought just didn't last and we didn't have money to get more.: Never True Transportation Needs: No Transportation Needs (02/19/2024) Received from [facility], [facility] PRAPARE - Transportation Lack of Transportation (Medical): No Lack of Transportation (Non-Medical): No Physical Activity: Not on file Stress: Not on file Social Connections: Not on file Intimate Partner Violence: Not on file Housing Stability: Low Risk (02/19/2024) Received from [facility], [facility] Housing Instability Are you worried or concerned [...] through 10. negative hair growth b/l feet. Plus1 pitting edema to bilateral ankles and feet VASC: Negative DP and negative PT pedal pulses NEURO: Gross sensation intact to bilateral feet ORTHO: Positive pain on palpation to nails 1 through 10 Negative pain on palpation lateral left ankle joint capsule and synovium Positive pain on palpation to right retrocalcaneal bursa as well as Achilles tendon with negative palpable [place] DIAGNOSTIC US REPORT: Verbal order for ultrasound [...] procedure including infection,damage or rupture to soft tissuestructures and steroid flare. This is the patients 1st injection Pt understood and consented. Discussed proper foot care with patient today. Debride nails in length and thickness digits 1 through 10 Kalyan Barboza DPM documented in this [facility]08-26-2024 Telephone encounter Note* Telephone Encounter - Kiran Gutierrez NP - 06/22/2024 4:14 PM EDT Justina sent [facility] [id number] Miscellaneous Notes* Telephone Encounter - Kiran Gutierrez NP - 06/22/2024 4:14 PM EDT Justina sent documented in this [facility]05-21-2024 History of Present illness Narrative* Ginny Belcher APRN-JIMMY - 03/17/2024 10:20 AM EDT Subjective Patient ID: Gera Perdue is a [...] to above hospitalization she was hospitalized at [facility] and discharged February 16, 2024 with concern [...] at baseline Recent treatment for pneumonia at outlying hospital (discharged on cefdinir and azithromycin) History cigarette smoking-quit in 2022 The following portions of the patient's history were reviewed and updated as appropriate: allergies, current medications, past family history, past medical history, past social history, past surgicalhistory, problem list, and medication reconciliation was completed including current medication andpost discharge medication. Review of Systems Constitutional: Negative [...] failure with hypoxia, on home O2 therapy ([facility]) 3. Former cigarette smoker 4. Abnormal CT of the chest 5. Longstanding persistent atrial fibrillation ([facility]) Orders Placed This Encounter Procedures Ambulatory referral to Pulmonology (Non[facility]) Refer placed for debone supervisor in patient with history of right lower [...] maintain a healthy lifestyle including eating a well- balanced healthy diet, maintaining a healthy weight, appropriate [...] Counseling CHIQUI Olivares 03/17/242052 documented in this encounterBlanchard [facility]uff[facility] HospitalAncanco04-24-2024 NoteCT CHEST W CONT PROCEDURE: CT CHEST WITH [...] by Dima Colón MD on 02/19/2024 4:52 [place] 02-16-2024 Progress note Author Lucho Grullon [facility] February 16, 2024 7:12pmNote Date/TimeApr2023 12:07[place] [address] Hospitalist Progress Note Signed Patient: Gera Perdue MR#: [id number] : 1945 Acct:[id number] Age/Sex: 78 / F Adm Date: 4 Loc: Room: [address] [place] [address] Type: ADM IN Attending Dr: Lucho Grullon [...] lumen. There is wall thickening with accompanying fatstranding in the transverse colon, descending colon, and [...] noted bilaterally with mild hazy perihilar airspace opacityon the right. COVID-19 / Flu A/B / [...] 09:00 02/16/24 10:23 Pantoprazole 40 Mg Tablet.Dr LEES 02/15/25 08:59 40 mg DAILY JERILYN Administration [...] signed by Lucho Grullon MD> 02/16/[address] [facility] Work Phone: 1(440) 503-477804-21-2024 Progress note Author Lucho Grullon [facility] February 16, 2024 12:09amNote Date/TimeApril 2023 3:04[place] [address] Hospitalist Progress Note Signed Patient: Gera Perdue MR#: [id number] : 1945 Acct:[id number] Age/Sex: 78 / F Adm Date: 4 Loc: Room: [address] [place] [address] Type: ADM IN Attending Dr: Lucho Grullon [...] lumen. There is wall thickening with accompanying fatstranding in the transverse colon, descending colon, and [...] noted bilaterally with mild hazy perihilar airspace opacityon the right. COVID-19 / Flu A/B / [...] Plan Documented By: Lucho Grullon MD 02/15/24 1456 Signed By: <Electronically signed by Lucho Grullon MD> 02/16/[address] [facility] Work Phone: 1(946) 739-302104-20-2024 History and physical note Author Lucho Grullon [facility] February 15, 2024 12:58amNote Date/TimeApril 2023 5:59[place] [address] Hospitalist H&P Signed Patient: Gera Perdue MR#: [id number] : 1945 Acct:[id number] Age/Sex: 78 / F Adm Date: 4 Loc: Room: [address] [place] [address] Type: ADM IN Attending Dr: Lucho Grullon [...] experiencing diarrhea, nausea, and non- bloody emesis, occurringmultiple times both day and night. She has [...] lumen. There is wall thickening with accompanying fatstranding in the transverse colon, descending colon, and sigmoid colon It is likely viral infection however i can?t rule out bacterial Liquid diet Stool Lactoferrin Stool Cx C. Diff IVF and supportive treatment Rule out Bacterial pneumonia She p/w productive cough CXR ED shows Interstitial prominence is noted bilaterally with mild hazy perihilar airspace opacityon the right. COVID-19 / Flu A/B / [...] care Discussed with:?the medical team, the patient [facility] Medical History Intertrochanteric fracture of left [...] % (Auto) 23.7 % (.) 02/14/24 11:39 Bradley % (Auto) 12.3 % (.) 02/14/24 11:39 Eos % (Auto) 0.4 % (.) 02/14/24 11:39 Baso % (Auto) 0.9 % (.) 02/14/24 11:39 Nucleat RBC Rel Count 0.1 /100 WBC (0-0.5) 02/14/24 11:39 Neut # (Auto) 8.5 x10E3/uL (1.8-7.7) H 02/14/24 11:39 Lymph # (Auto) 3.2 x10E3/uL (1.00-4.8) 02/14/24 11:39 Bradley # (Auto) 1.7 x10E3/uL (0.0-0.8) H 02/14/24 [...] pH 5.5 (5.0-9.0) 02/14/24 11:50 Ur Specific [place] 1.024 (1.001-1.030) 02/14/24 11:50 Urine Protein 30 [...] setting as: INPATIENT because of an expectation ofan over 2 midnight stay. Estimated length of stay (# of days): 3 Documented By: Lucho Grullon MD 02/14/24 0787 Signed By: <Electronically signed by Lucho Grullon MD> 02/15/24 0058 [facility] Work Phone: 1(484) 637-111504-15-2024 History of Present illness Narrative* Jenna Engle [...] stage IIIb 5. Patient was transferred to [facility] from [facility] for nephrology consultation for ARTURO on CKD along with hyperkalemia. This occurred in September 2023. Prior to that she had been living [facility], and has been in and out of [facility] on multiple occasions, being treated for urinary [...] smoker 01/06/2024 Frequent UTI 01/06/2024 Angina pectoris ([facility]) 12/04/2023 Coronary artery disease 12/04/2023 Dyspnea 12/04/2023 Essential hypertension 12/04/2023 Hyperlipidemia, mixed 12/04/2023 Assessment: 1. Shortness of breath Follow Up In Cardiology 2. Coronary artery disease involving [place] coronary artery of klawock heart without angina pectoris 3. History of [...] further questions arise, Sincerely, Jenna Engle MD [facility] Follow up : brain Maguire Attestation [...] exam, discussion and plan. documented in this encounterProtestant [facility]acon[facility] Hospital Work Phone: 1(506) 663-164004-15-2024 Instructions* Patient Instructions* Hoa Buck LPN - [...] ordered as needed only documented in this encounterProtestant [facility]aconess Hospital Work Phone: 1(722) 879-617804-04-2024 Hospital Discharge instructions Patient Education 01/30/2024 14:50:25 [...] Treatment for this condition includes: Antibiotic medicine. Rdim-dtt-elboczv medicines to treat discomfort. Drinking enough water [...] Follow these instructions at home: Medicines Take olvp-krr-hfszwst and prescription medicines only as told by [...] provider. Document Revised: 05/26/2021 Document Reviewed: 05/26/2021 [employer] Patient Education 2022 [employer] 01/30/2024 14:50:24 Urinary Incontinence Urinary Incontinence Urinary [...] nerve stimulation). ?For women, using a medical biller to prevent urine leaks. This is a [...] right after experiencing incontinence. General instructions Take zopq-uwx-mxofdeb and prescription medicines only as told by [...] important. Where to find more information National [employer] of Diabetes and Digestive and Kidney Diseases: www.niddk.nih.gov [place] [employer]: www.urologyhealth.org Contact a health care [...] provider. Document Revised: 05/19/2021 Document Reviewed: 05/19/2021 [employer] Patient Education 2022 [employer]. 01/30/2024 14:50:21 Overactive Bladder, Adult Overactive Bladder, [...] your health care provider. General instructions Take uylc-nrq-ezcjfhk and prescription medicines only as told by [...] provider. Document Revised: 07/03/2021 Document Reviewed: 07/03/2021 [employer] Patient Education 2022 [employer]. Follow Up Care 01/13/2024 09:25:34 With:CHIP Ponce APRN, JYOTI Vieyra, URL Address: When: Unknown Comments:pending cysto/UD [facility] Colin 04-04-2024 Evaluation + Plan note Diagnostic Tests Pending * Urine Culture 01/30/24 [facility]03-11-2024 History of Present illness Narrative* [...] have been reviewed. Reviewed extensive records from [facility].. Past Medical History: 1. Longstanding nicotine dependence with COPD, currently hypoxemic respiratory failure on oxygen. 2. Primary hypertension 3. Obstructive sleep apnea 4. Chronic kidney disease stage IIIb 5. Patient was transferred to [facility] from [facility] for nephrology consultation for ARTURO on CKD along with hyperkalemia. This occurred in September 2023. Prior to that she had been living [facility], and has been in and out of [facility] on multiple occasions, being treated for urinary [...] 2 views; Future Coronary artery disease involving klawock coronary artery of klawock heart without angina pectoris Stage 3b chronic kidney disease (CMS/HCC) Microcytic anemia History of PTCA Essential hypertension Hyperlipidemia, mixed Obstructive sleep apnea syndrome Chronic respiratory failure with hypoxia (CMS/HCC) Frequent UTI BMI 32.0-32.9,adult Cough with expectoration Current smoker 1. Shortness of breath 2. Coronary artery disease involving klawock coronary artery of k[place] heart without angina pectoris 3. Stage 3b chronic kidney disease (CMS/HCC) 4. Microcytic anemia 5. History of PTCA 6. Essential hypertension 7. Hyperlipidemia, mixed 8. Obstructive sleep apnea syndrome 9. Chronic respiratory failure with hypoxia (CMS/HCC) 10. Frequent UTI 11. BMI 32.0-32.9,adult 12. Cough with expectoration 13. Current smoker Patient with multiple comorbidities, atherosclerotic klawock vessel coronary artery disease and riskfactors, recent [...] to smoke. She has history of atherosclerotic klawock vessel coronary artery disease with intolerance to [...] further questions arise, Sincerely, Jenna Engle MD [facility] Scribe Attestation By signing my name below, I, Yaquelni Gama LPN , Scribe attest that this documentation has been prepared under the direction and in the presence of Jenna Engle MD. Provider Attestation - Scribe documentation All medical record entries made by the Scribe were at my direction and personally dictated by me. Ihsindi reviewed the chart and agree that the record accurately reflects my personal performance of the history, physical exam, discussion and plan. documented in this encounterProtestant [facility]acon[facility] Hospital Work Phone: 1(172) 462-651303-11-2024 Instructions* Patient Instructions* Yaquelin Garcia LPN - [...] two weeks then stop documented in this encounterProtestant Deaconess Hospital Work Phone: 1(729) 162-442802-12-2024 History of Present illness Narrative* Lilliam Cheek NP - 12/09/2023 11:00 AM EST Subjective Patient ID: Gera Perdue (: 1945) is a 78 y.o. female who presents for Hospital Follow-up. HPI Pt presents and daughter present for hospital follow up. Pt was admitted to [facility] in early September for ARTURO, UTI, and sepsis. Patient was then discharged to the [facility] in [place]. Pt was released from the [facility] on 11/28/2023. She is supposed to be getting HH however the company they were r eferred to is short staffed so her family has been caring for her. Today patient has complaints of shortness of breath and bilateral leg swelling. Pt denies urinary symptoms. She is currently finishing her Levaquin as she was started on at the [facility]. Pt did also receive weeks of Daptomycin [...] TABLET BY MOUTH EVERY DAY nystatin (Mycostatin) 052031 UNIT/GM powder APPLY TOPICALLY TO THE AFFECTED [...] related osteoporosis (CMS/HCC) Atherosclerotic heart disease of klawock coronary artery without angina pectoris (CMS/HCC) Carotid stenosis Chronic obstructive pulmonary disease (CMS/HCC) Essential hypertension (CMS/HCC) Failed back surgical syndrome Hyperlipidemia (CMS/HCC) Major depressive disorder in partial remission ([facility]) ([facility]) Primary osteoarthritis Stage 3a chronic kidney disease (HCC) ([facility]) Primary osteoarthritis of left knee Abdominal hernia Anxiety Arthritis At risk for falls Chronic ulcer of left foot with fat layer exposed ([facility]/HCC) Colon polyps Constipation COPD (chronic obstructive pulmonary disease) ([facility]/HCC) Depression ([facility]) Dermatitis Diverticulosis Encephalopathy Fall Female incontinence GERD (gastroesophageal reflux disease) Heart disease HLD (hyperlipidemia) ([facility]) Incisional hernia without obstruction or gangrene Insomnia Lower extremity edema Neck pain Obesity OM (onychomycosis) Osteoporosis ([facility]/HCC) S/P right coronary artery (RCA) stent placement [...] O:KLEPNE Isolated TBH CULTURE URINE Urine Culture Bailey Count TBH CULTURE URINE >100,000 CFU/ml TBH [...] List Items Addressed This Visit Essential hypertension ([facility]/HCC) Relevant Orders CBC and differential Comprehensive metabolic [...] unspecified organism, unspecified acute renal failure type (CMS/[facility]) Medication management Patient presents today with daughter for hospital/penitentiary follow up. Patient was admitted to [facility] (all hospital records are in Care Everywhere and were reviewed prior to and during appt). With UTI, ARTURO and sepsis. She did receive IV antibiotics through a PICC line which has since been removed. She was discharged to the [facility] for penitentiary for three weeks and was discharged on11/28/2023. Patient is currently finishing oral Levaquin. Patient denies urnary symptoms or fevers today. Patient does have complaints of leg swelling and shortness of breath. Assessment does consist of wheezing and rhonchi. Daughter did bring a large bag with multiple medications that needed reviewed and sorted out. This NUCLEAR MEDICINE MEDICAL DIRECTOR did review each medication and compared it to the discharge summary from the [facility]. Each medication was discussed and placed in proper labeled bags to assist in the proper set up at home. Patient does have an order for HH however the company does not have enough staff. I am going to send an order to [facility] as this patient needs and requires a HH nurse, aide, social sciences instructor and PT. CCM will also be consulted. Patient does discuss concerns of a prolapsed bladder being apossible cause of the UTI's which this does need assessed in a timely manner. Referral sent to [facility].Advised daughter to call office within 5-7 days if she has not heard anything to address the above r eferrals. Patient is currently supposed to be taking Prednisone 20 mg a day which she has not been doing. This was given at the [facility]. Due to the wheezing and shortness of breath I advised they to 40 mg a day for 3 days and finish the rest of the 20 mg a day until finished. Patient and daughter instructed to call office with any questions or to seek ER if symptoms worsen. Patient does have an infectious disease follow up on 12/02/2023 and hearing aide technician on 01/06/2024. Patient will return to [...] breathing machine I will address this with [facility]. Health Maintenance Topic Date Due Diabetes: [...] follow up with labs. documented in this encounterSaint John's Health [id number] Miscellaneous Notes* Telephone Encounter - Yvonne Kelly RN - 11/12/2023 2:42 PM EST Called Keri-Patient's daughter back after r/s hospital followup with Dr Galicia for 11-22-2023. Our office does not participate with her Mom's insurance-[facility] [employer] Complete. Appt cancelled. Keri to call her Mom's [facility] [employer] Customer Service to see what Ellen GUZMAN is on her plan. Keri to call office back so we can send a referral. documented in this encounterBlanchard Valley Health System [facility] [email or web address] [facility] [id number] Telephone encounter Note* Telephone Encounter - Yvonne Kelly RN - 11/12/2023 2:42 PM EST Called Keri-Patient's daughter back after r/s hospital followup with Dr Galicia for 11-22-2023. Our office does not participate with her Mom's insurance-[facility] [employer] Complete. Appt cancelled. Keri to call her Mom's [facility] [employer] Customer Service to see what Ellen GUZMAN is on her plan. Keri to call office back so we can send a referral. [facility] [employer] [id number] Miscellaneous Notes* Telephone Encounter - Nirmala Shirley - 11/12/2023 10:18 AM EST KERI IS CALLING SINCE PT TESTED POSITIVE FOR COVID. PLEASE CALL AND ADVISE ABOUT THE HOSPITAL DISCHARGE FOLLOW UP SHE CAN BE REACHED AT [phone] * Telephone Encounter - Yvonne Kelly RN - 11/12/2023 10:18 AM EST Patient is in isolation until 11-17-2023. Appt r/s with Dr Galicia for 11-22- 10:30a documented in this encounterBlanchard Valley Health [facility] [email or web address] [facility] [place] [id number] Telephone encounter Note* Telephone Encounter - Nirmala Shirley - 11/12/2023 10:18 AM EST KERI IS CALLING SINCE PT TESTED POSITIVE FOR COVID. PLEASE CALL AND ADVISE ABOUT THE HOSPITAL DISCHARGE FOLLOW UP SHE CAN BE REACHED AT [phone] [facility]01-16-2024 Telephone encounter Note* Telephone Encounter - Yvonne Kelly RN - 11/12/2023 10:18 AM EST Patient is in isolation until 11-17-2023. Appt r/s with Dr Galicia for 10:30a [facility]01-03-2024 Miscellaneous Notes* Telephone Encounter - Avtar Ortega - 10/30/2023 12:37 PM EST New patient/Hospital Follow Up DX: Sleep Apnea Scheduled 01/10/24 w/ Dr. Gallagher [facility] Paperwork sent: 10/30/23. Please send paperwork to: [employer] @ [place] [address] [address] [place] [address] Ins verified (OON notification); NO WORKMAN'S COMP; NO ACCIDENT documented in this encounterDiley [facility] Center01-[facility]-2024 Telephone encounter Note* Telephone Encounter - Amrit Ortega - 10/30/2023 12:37 PM EST New patient/Hospital Follow Up DX: Sleep Apnea Scheduled 01/10/24 w/ Dr. Gallagher [facility] Paperwork sent: 10/30/23. Please send paperwork to: [employer] @ [place] [address] Ins verified (OON notification); NO WORKMAN'S COMP; NO ACCIDENT [facility]10-24-2023 Discharge summary Author Jesus Alberto Aquino [facility] August 20, 2023 1:32pmNote Date/TimeOct2022 1:32pMatthew [place] [id number] Discharge Summary Signed Patient: Gera Perdue MR#: [id number] : 1945 Acct:[id number] Age/Sex: 77 / F Adm Date: 3 Loc: 3T Room: [address] [place] [address]: Jesus Alberto Aquino MD Copies [...] IV ceftriaxone. Her renal failure resolved. Blood culturesremain negative. No complications occurred, and she was [...] BUN 19, Creatinine 1.08 D, Est GFR (CKD-EPI) 52.905, Glucose 57 L, Calcium 7.5 L Exam Physical Exam Vital Signs: Temp Pulse Resp BP Pulse Ox O2 Del Method 98.1 F 85 20 138/83 92 L Room Air 08/20/23 08:00 08/20/23 12:27 08/20/23 12:27 08/20/23 08:00 08/20/23 08:00 08/20/23 08:00 Discharge Plan Discharge Plan Patient Disposition: Half-Way Facility Activity: No Activity Restriction Diet: Regular [...] by Jesus Alberto Aquino MD> 08/20/[address] [facility] Work Phone: 1(472) 840-225310-23-2023 Progress note Author Jesus Alberto Aquino [facility] August 19, 2023 2:43pmNote Date/TimeOct2022 2:[place] [address] Hospitalist Progress Note Signed Patient: Gera Perdue MR#: [id number] : 1945 Acct:[id number] Age/Sex: 77 / F Adm Date: 3 Loc: Room: [address] [place] [address] Type: ADM IN Attending Dr: Jesus Alberto [...] Jesus Alberto Aquino MD> 08/19/231442 [facility] Work Phone: 1(133) 122-780610-22-2023 Progress note Author Jesus Alberto Aquino [facility] August 18, 2023 1:49pmNote Date/TimeOctober 2022 1:49[place] [address] Hospitalist Progress Note Signed Patient: Gera Perdue MR#: [id number] : 1945 Acct:[id number] Age/Sex: 77 / F Adm Date: 3 Loc: 3T Room: [address] [place] [address] Type: ADM IN Attending Dr: Jesus Alberto [...] Chloride 0.9 % 10 Ml Syringe IV-PUSH 10/20/24 16:05 PRN PRN Flush Documented By: Jesus Alberto Aquino MD 08/18/23 1348 Signed By: <Electronically signed by Jesus Alberto Aquino MD> 08/18/[address] [facility] Work Phone: 1(287) 488-504610-21-2023 History and physical note Author Jesus Alberto Aquino [facility] August 17, 2023 7:50pmNote Date/TimeOct2022 7:[place] [address] Hospitalist H&P Signed Patient: Gera Perdue MR#: [id number] : 1945 Acct:[id number] Age/Sex: 77 / F Adm Date: 3 Loc: Room: [address] [place] [address] Type: ADM IN Attending Dr: Jesus Alberto Aquino MD Copies to: MD Gustavo Keen,DO~ HPI DATE OF EXAMINATION: 08/17/23 HISTORY OF PRESENT ILLNESS: Patient is a 77-year-old female, who is brought today to the emergency department by EMS on accountof fall and severe weakness, nausea vomiting and diarrhea. Patient is quite confused and is unable to provide any meaningful history of present illness. At the time my examination she denies any painor discomfort apart from the left hip area. [...] is in the hospital but does not knowthe month or the year. Cannot provide any [...] apnea Nephrolithiasis Pulm hypertension GERD Hypertension Dyslipidemia [facility] Medical History (Updated 08/17/23 @ 19:01 by Maury Morirssey DO) Arthritis COPD (chronic obstructive pulmonary disease) [...] % (Auto) 7.8 % (.) 08/17/23 16:05 Bradley % (Auto) 5.5 % (.) 08/17/23 16:05 Eos % (Auto) 0.0 % (.) 08/17/23 16:05 Baso % (Auto) 0.2 % (.) 08/17/23 16:05 Nucleat RBC Rel Count 0.1 /100 WBC (0-0.5) 08/17/23 16:05 Neut # (Auto) 25.4 x10E3/uL (1.8-7.7) H 08/17/23 16:05 Lymph # (Auto) 2.3 x10E3/uL (1.00-4.8) 08/17/23 16:05 Bradley # (Auto) 1.6 x10E3/uL (0.0-0.8) H 08/17/23 [...] setting as: INPATIENT because of an expectation ofan over 2 midnight stay. Estimated length of stay (# of days): 3 Documented By: Jesus Alberto Aquino MD 08/17/231945 Signed By: <Electronically signed by Jesus Alberto Aquino MD> 08/17/23[address] [facility] Work Phone: 1(106) 906-230310-21-2023 History and physical note Author Jesus Alberto Aquino [facility] August 17, 2023 7:50pmNote Date/TimeOct2022 7:50pmAlexandra [place] [id number] Hospitalist H&P Signed Patient: Gera Perdue MR#: [id number] : 1945 Acct:[id number] Age/Sex: 77 / F Adm Date: 3 Loc: 3T Room: [address] [place] [address] Type: ADM IN Attending Dr: Jesus Alberto Aquino MD Copies to: MD Gustavo Keen DO~ HPI DATE OF EXAMINATION: 08/17/23 HISTORY OF PRESENT ILLNESS: Patient is a 77-year-old female, who is brought today to the emergency department by EMS on accountof fall and severe weakness, nausea vomiting and diarrhea. Patient is quite confused and is unable to provide any meaningful history of present illness. At the time my examination she denies any painor discomfort apart from the left hip area. [...] is in the hospital but does not knowthe month or the year. Cannot provide any [...] apnea Nephrolithiasis Pulm hypertension GERD Hypertension Dyslipidemia [facility] Medical History (Updated 08/17/23 @ 19:01 [...] % (Auto) 7.8 % (.) 08/17/23 16:05 Bradley % (Auto) 5.5 % (.) 08/17/23 16:05 Eos % (Auto) 0.0 % (.) 08/17/23 16:05 Baso % (Auto) 0.2 % (.) 08/17/23 16:05 Nucleat RBC Rel Count 0.1 /100 WBC (0-0.5) 08/17/23 16:05 Neut # (Auto) 25.4 x10E3/uL (1.8-7.7) H 08/17/23 16:05 Lymph # (Auto) 2.3 x10E3/uL (1.00-4.8) 08/17/23 16:05 Bradley # (Auto) 1.6 x10E3/uL (0.0-0.8) H 08/17/23 [...] setting as: INPATIENT because of an expectation ofan over 2 midnight stay. Estimated length of stay (# of days): 3 Documented By: Jesus Alberto Aquino MD 08/17/231945 Signed By: <Electronically signed by Jesus Alberto Aquino MD> 08/17/[address] [place] [address] Work Phone: 1(650) 721-284009-17-2023 Discharge summary Author Jolanta Mckenzie [facility] July 14, 2023 11:16amNote Date/TimeSeptember 2022 11:16[place] [address] Discharge Summary Signed Patient: Gera Perdue MR#: [id number] : 1945 Acct:[id number] Age/Sex: 77 / F Adm Date: 3 Loc: Room: [address] [place] [address]: Jolanta Mckenzie MD Copies to: [...] medical history of coronary disease status post PCI,COPD, hypertension and other medical comorbidities. Presented to [...] and sputum culture noted. While in the hospitalpatient complained of significant abdominal pain with worsening leukocytosis. She does have prior history of abdominal surgery and stat CT abdomen/pelvis was obtained was negative for acute abnormality. Noted to have multiple ventral hernias without any signs of obstruction. Also noted to have increased colonic stool and patient did have multiple bowel movements. She denies further abdominal painwith improved breathing. Physical therapy wasconsulted with recommendation for penitentiary facility which patient is refusing understanding the [...] 9.1, BUN 24, Creatinine 1.10, Est GFR (CKD-EPI) 51.753, Glucose 84, Calcium 8.0 L 07/14/23 06:49: Corrected WBC 19.3 H, Uncorrected WBC Count 19.3 H, RBC 4.00, Hgb 10.5 L, Hct 33.6 L, MCV 84.0, MCH 26.2, MCHC 31.2 L, RDW 22.8 H, Plt Count 238, MPV 7.9, Neut % (Auto) 69.9, Lymph % (Auto) 22.1, Bradley % (Auto) 7.3, Eos % (Auto) 0.4, Baso % (Auto) 0.3, Nucleat RBC Rel Count 0.1, Neut# (Auto) 13.5 H, Lymph # (Auto) 4.3, Bradley # (Auto) 1.4 H, Eos # (Auto) [...] signed by Jolanta Mckenzie MD> 07/14/23 1116 [facility] Work Phone: 1(180) 140-967609-16-2023 Progress note Author Jolanta Mckenzie [facility] July 13, 2023 1:59pmNote Date/TimeSeptember 2022 10:[address] [address] Hospitalist Progress Note Signed with Ling Patient: Gera Perdue MR#: [id number] : 1945 Acct:[id number] Age/Sex: 77 / F Adm Date: 3 Loc: Room: [address] [place] [address] Type: ADM IN Attending Dr: Jolanta Mckenzie [...] but patient also on steroid. Discussed regarding penitentiary facility she has not decided yet. Give [...] side. Creatinine improved and will be admitted forfurther management of respiratory symptoms. Now resolved flank and abdominal pain with generalized discomfort. She is eating, drinking and voiding fine comfortable/pleasant overall. Patient is baseline tachypneic with shortness of breath on minimal exertion however saturates fine.CT abdomen pelvis with contrast showed mild bibasilar [...] no bowel or urinary tract obstruction,left renal corticalscarring, multiple ventral hernias with largest at the [...] Jolanta Mckenzie MD> 07/13/[address] [facility] Work Phone: 1(537) 447-731009-15-2023 Progress note Author Jolanta Mckenzie [facility] July 12, 2023 3:00pmNote Date/TimeSeptember 2022 2:16[place] [address] Hospitalist Progress Note Signed with Addenda Patient: Gera Perdue MR#: [id number] : 1945 Acct:[id number] Age/Sex: 77 / F Adm Date: 3 Loc: Room: [address] [place] [address] Type: ADM IN Attending Dr: Jolanta Mckenzie [...] and switch to oral prednisone. PT recommended penitentiary facility which patient is refusing with [facility] Addendum Documented By: Jolanta Mckenzei MD 07/12/231499 Addendum Signed By: <Electronically signed [...] 1,000 Ml IV 07/09/24 13:59 75 mls/hr .[id number] JERILYN Administration Ceftriaxone Sodium 1 gm in [...] Jolanta Mckenzie MD> 07/12/[address] [facility] Work Phone: 1(125) 736-173809-14-2023 Progress note Author Jolanta Mckenzie [facility] July 11, 2023 12:47pmNote Date/TimeSept2022 10:10am[place] [address] Hospitalist Progress Note Signed with Ling Patient: Gera Perdue MR#: [id number] : 1945 Acct:[id number] Age/Sex: 77 / F Adm Date: 3 Loc: Room: [address] [place] [address] Type: ADM IN Attending Dr: Jolanta Mckenzie [...] from prior cholecystectomy. She is somewhat of apoor historian tangential in nature unable to provide detailed ROS. She also complains of a right eyelid lag she states worsens when she rotates her head ipsilaterally. Patient needs multiple promptsto adhere to EOM exam. She deniesrecent infection, fever, chills, chest pain, headache or dizzinesshowever mentions having dysuria with increased frequency. Also [...] 1,000 Ml IV 07/09/24 13:59 75 mls/hr .[id number] JERILYN Administration Ceftriaxone Sodium 1 gm in [...] Renal function improving. Consult PT/OT. Documented By: Bhavseh Cristobal MD, RES 07/11/23 094 9 Signed By: <Electronically signed by RES Bhavesh Cristobal> 07/11/23 1010 <Electronically signed by Jolanta Mckenzie MD> 07/11/[address] [facility] Work Phone: 1(312) 743-679609-13-2023 History and physical note Author Jolanta Mckenzie [facility] July 10, 2023 1:50pmNote Date/TimeSept2022 1:44[place] [address] Hospitalist H&P Signed Patient: Gera Perdue MR#: [id number] : 1945 Acct:[id number] Age/Sex: 77 / F Adm Date: 3 Loc: Room: [address] [place] [address] Type: ADM IN Attending Dr: Jolanta Mckenzie [...] saline bolus. On examination patient noted to haveactively wheezing and appears tachypneic as well. Review of Systems Review of Systems All other systems reviewed & are negative unless noted below or in HPI [facility] Medical History Arthritis COPD (chronic obstructive [...] % (Auto) 31.5 % (.) 07/10/23 08:44 Bradley % (Auto) 6.5 % (.) 07/10/23 08:44 Eos % (Auto) 0.4 % (.) 07/10/23 08:44 Baso % (Auto) 0.2 % (.) 07/10/23 08:44 Nucleat RBC Rel Count 0.1 /100 WBC (0-0.5) 07/10/23 08:44 Neut # (Auto) 13.1 x10E3/uL (1.8-7.7) H 07/10/23 08:44 Lymph # (Auto) 6.7 x10E3/uL (1.00-4.8) H 07/10/23 08:44 Bradley # (Auto) 1.4 x10E3/uL (0.0-0.8) H 07/10/23 [...] pH 8.5 (5.0-9.0) 07/10/23 08:44 Ur Specific [place] 1.022 (1.001-1.030) 07/10/23 08:44 Urine Protein 30 [...] setting as: INPATIENT because of an expectation ofan over 2 midnight stay. Estimated length of stay (# of days): 2 Documented By: Jolanta Mckenzie MD 07/10/23 1340 Signed By: <Electronically signed by Jolanta Mckenzie MD> 07/10/[address] [facility] Work Phone: 1(294) [phone] Discharge summary Author Jesus Alberto Aquino [facility] December 31, 2022 3:43pmNote Date/TimeMarch 2022 11:57[place] [address] Discharge Summary Signed Patient: Gera Perdue MR#: [id number] : 1945 Acct:[id number] Age/Sex: 77 / F Adm Date: 3 Loc: Room: [address] [place] [address]: Jesus Alberto Aquino MD Copies [...] the setting of pulmonary hypertension in the rightheart failure. An echocardiogram showed RV SP of 40 to 50 mmHg. This was better than the prior level. There was evidence of urinary tract infection with E. coli. Patient received treatment with ceftriaxone. No complications occurred, and patient was discharged to penitentiary facility in stable condition on December 31. [...] % (Auto) N/A, Lymph % (Auto) N/A, Bradley % (Auto) N/A, Eos % (Auto) N/A, Baso % (Auto) N/A, Nucleat RBC Rel Count N/A, Neut # (Auto) N/A, Lymph # (Auto) N/A, Bradley # (Auto) N/A, Eos # (Auto) N/A, Baso # (Auto) N/A, Lymphocytes % 8 L, Monocytes % 5, Eosinophils % 1, Basophils % 1, Segmented Neutrophils 86 H, Platelet Estimate Normal, Giant Platelets 1, Plt Morphology Comment Normal, RBC Morphology N/A, Polychromasia Slight, Hypochromasia Slight, Poikilocytosis Slight, Anisocytosis Moderate, Microcytosis Moderate, Helmet Destiny ls Slight Exam Physical Exam Vital Signs: Temp Pulse Resp BP Pulse Ox O2 Del Method O2 Flow Rate 97.5 F L 91 H 22 114/72 93 L Nasal Cannula 1.5 12/31/22 08:00 12/31/22 09:20 12/31/22 09:20 12/31/22 08:00 12/31/22 09:23 12/31/22 09:23 12/31/22 09:23 Discharge Plan Discharge Plan Patient Disposition: Half-Way Facility Activity: No Activity Restriction Diet: Regular [...] by Jesus Alberto Aquino MD> 12/31/[address] [facility] Work Phone: 1([phone]) 289-903703-05-2023 Progress note Author Carla Hagan [facility] December 30, 2022 9:53amNote Date/TimeMar2022 9:[place] [address] Hospitalist Progress Note Signed Patient: Gera Perdue MR#: [id number] : 1945 Acct:[id number] Age/Sex: 77 / F Adm Date: 3 Loc: 4N Room: 0Z1352-2 Type: ADM IN Attending Dr: Carla Hagan [...] place, time and person. Morbidly obese HEENT: [place] conjunctiva and NL buccal mucosa Neck: Supple, [...] in 2 months for hip pain following lefthip replacement. Acute problems UTI -UA positive for [...] anemia Plan is to discharge patient to penitentiary unit for short period of time for [...] it up from the pharmacy. Continue Plavix int hospital. No chest pain or palpitation. No clinical evidence to suggest ACS or acute plaque rupture -Of note, patient is allergic to aspirin. Social issues. Adult Protective Services assures that home situation is okay. DVT prophylaxis: Lovenox 40 mg daily Diet: Regular Code status: Full Prognosis: fair Disposition: anticipated discharge to [facility] Patient is medically cleared for discharge pending placement approval. The patient would likely need to have additional work-up, investigation and therapeutic intervention but will be determined based on the clinical progression and follow-up test result. Some of which could be done in the outpatient setting Documented By: Carla Hagan MD 12/30/22 0950 Signed By: <Electronically signed by Carla Hagan MD> 12/30/[address] [facility] Work Phone: 1(172) 891-975003-04-2023 Progress note Author Carla Hagan [facility] December 29, 2022 10:00amNote Date/TimeMarch 2022 10:00[place] [address] Hospitalist Progress Note Signed Patient: Gera Perdue MR#: [id number] : 1945 Acct:[id number] Age/Sex: 77 / F Adm Date: 3 Loc: Room: [address] [place] [address] Type: ADM IN Attending Dr: Carla Hagan MD Copies to: ~ Date of Service: 12/29/2022 Subjective Subjective Narrative: Following up on the patient. Patient is feeling better. She denies any new symptoms. Improvement ofher pain and discomfort. No headaches, loss of [...] place, time and person. Morbidly obese HEENT: [place] conjunctiva and NL buccal mucosa Neck: Supple, [...] in 2 months for hip pain following lefthip replacement. Acute problems UTI -UA positive for [...] it up from the pharmacy. Continue Plavix inthe hospital. No chest pain or palpitation. No clinical evidence to suggest ACS or acute plaque rupture -Of note, patient is allergic to aspirin. Functional impairment in the debility. Multifactorial secondary to obesity, DJD, deconditioning andsedentary lifestyle. Patient may need short-term skilled versus [...] signed by Carla Hagan MD> 12/29/[address] [facility] Work Phone: 1(398) 154-757703-03-2023 Progress note Author Carla Hagan [facility] December 28, 2022 11:14amNote Date/TimeMar2022 9:27[place], [place] [address] Hospitalist Progress Note Signed Patient: Gera Perdue MR#: [id number] : 1945 Acct:[id number] Age/Sex: 77 / F Adm Date: 3 Loc: Room: [address] [place] [address] Type: ADM IN Attending Dr: Carla Hagan [...] yesterday. Powder in abdominal folds. 2-3cm Stage IIulcer with yellow base and red, erythematous borders [...] it up from the pharmacy. Continue Plavix int hospital. No chest pain or palpitation. No clinical evidence to suggest ACS or acute plaque rupture -Of note, patient is allergic to aspirin. Functional impairment in the debility. Multifactorial secondary to obesity, DJD, deconditioning andsedentary lifestyle. Patient may need short-term skilled versus rehabilitation Multiple other medical issues not listed above. The patient likely will requireadditional investigative and therapeutic intervention will be determined based on the clinical progression and follow-uptest result. Some of which could be done [...] any cardiac arrhythmia.? Patient will likely require penitentiary facility on discharge. Patient is medically cleared for discharge pending placement approval. The patient would likely need to have additional work-up, investigation and therapeutic intervention but will be determined based on the clinical progression and follow-up test result Documented By: Carla Hagan MD 12/28/22 0918 Signed By: <Electronically signed by Carla Hagan MD> 12/28/22 1114 <Electronically signed by DO SEAN Armas> 12/28/[address] [facility] Work Phone: 1(512) 479-332503-02-2023 Progress note Author Carla Hagan [facility] December 27, 2022 12:40pmNote Date/TimeMarch 2022 9:25[place], [place] [address] Hospitalist Progress Note Signed Patient: Gera Perdue MR#: [id number] : 1945 Acct:[id number] Age/Sex: 77 / F Adm Date: 3 Loc: 4N Room: [address] [place] [address] Type: ADM IN Attending Dr: Carla Hagan MD Copies to: ~ Date of Service: 12/27/2022 Subjective Subjective Narrative: Patient reports she feels tired and weak this morning. She reports she continues to have left hip pain. She reports increased back pain and has history of chronic back pain. She reports she has had 4back surgeries in the past. She reports she has had multiple falls at home over the last few monthsand worsening weakness over the past few days. [...] well. Well-perfused. Lower extremities with moderate edema tobilateral feet and up to mid-avila. Knee brace [...] 300 Mg Tab.Er.24h PO 12/27/23 08:59 QAM [facility] Calcium Carbonate 600 mg 12/27/22 09:00 Calcium Carbonate 500 Mg Tablet PO 12/27/23 08:59 DAILY [facility] Clopidogrel Bisulfate 75 mg 12/27/22 09:00 Clopidogrel Bisulfate 75 Mg Tablet PO 12/27/23 08:59 DAILY [facility] Heparin Sodium (Porcine) 5,000 unit 12/27/22 06:00 12/27/22 06:14 Heparin 5,000 Unit/Ml Vial SUBCUT 12/27/23 05:59 5,000 unit Q8HR JERILYN Administration Hydromorphone HCl 0.5 mg 12/27/22 03:58 Hydromorphone 0.5 Mg/0.5 Ml Syringe IV-PUSH Q4H PRN Pain Scale 8 - 10 Lisinopril 5 mg 12/27/22 09:00 Lisinopril 5 Mg Tablet PO 12/27/23 08:59 DAILY [facility] Metoprolol Succinate 50 mg 12/27/22 09:00 Metoprolol Succinate 50 Mg Tab.Er.24h PO 12/27/23 08:59 DAILY [facility] Nicotine 1 each 12/27/22 00:30 12/27/22 00:48 [...] 40 Mg Tablet. PO 12/27/23 08:59 DAILY [facility] Paroxetine HCl 40 mg 12/27/22 09:00 Paroxetine 20 Mg Tablet PO 12/27/23 08:59 QAM [facility] Pregabalin 75 mg 12/27/22 09:00 Pregabalin 75 Mg Capsule PO 06/25/23 08:59 BID [facility] Sodium Chloride 0 ml 12/26/22 19:02 12/26/22 [...] 15 Gm Tube TOPICAL 12/27/23 08:59 BID [facility] Vitamin D 50 mcg 12/27/22 09:00 Cholecalciferol 25 Mcg (1,000 Units) Tablet PO 12/27/23 08:59 DAILY [facility] A&P - Hospitalist Assessment/Plan (1) Fall: (2) [...] on risks of current situation and lack ofcare. Yeast infection under the breast -Nystatin cream as needed History of tobacco use. Recent cessation. -Apply nicotine patch as needed Coronary artery disease with stent placement in 2019 -Prescribed Brilinta at home but no evidence she picked it up from the pharmacy. Continue Plavix inthe hospital. No chest pain or palpitation. No clinical evidence to suggest ACS or acute plaque rupture -Of note, patient is allergic to aspirin. Functional impairment in the debility. Multifactorial secondary to obesity, DJD, deconditioning andsedentary lifestyle. Patient may need short-term skilled versus rehabilitation Multiple other medical issues not listed above. The patient likely will requireadditional investigative and therapeutic intervention will be determined based on the clinical progression and follow-uptest result. Some of which could be done [...] any cardiac arrhythmia.? Patient will likely require penitentiary facility on discharge. Documented By: Carla Hagan MD 12/27/22 0857 Signed By: <Electronically signed by Carla Hagan MD> 12/27/22 1240 <Electronically signed by DO SEAN Armas> 12/27/[address] [facility] Work Phone: 1(903) 230-749103-02-2023 History and physical note Author Jolanta Mckenzie [facility] December 27, 2022 12:32amNote Date/TimeMarch 2022 11:05pmAlexandra Ville [id number] Hospitalist H&P Signed with Addenda Patient: Gera Perdue MR#: [id number] : 1945 Acct:[id number] Age/Sex: 77 / F Adm Date: 3 Loc: 4N Room: [id number] Type: ADM IN Attending Dr: Jolanta Mckenzie [...] significant pain in the left hip area. Shehas been feeling dizzy for quite some time and mentioned falling frequently. She lives in a trailerwith her boyfriend appears to be a poor historian. On examination no focal motor deficit noted other than limited rangeof motion in the left lower extremity due to pain on flexion. In the ER CT head,C-spine, chest/abdomen/pelvis did not show any acute abnormality. Given her significant pain in theleft hip will obtain CT of the left hip. She does have history of hip arthroplasty. Noted to have significant swelling in both lower extremity likely from severe pulm hypertension. Given her history of pulmonary hypertension possibility of syncopal episode cannot be ruled out. Will obtain 2D echocardiogram and venous duplex. Continue her on aspirin and other home medications. Consult PT/OT. Checkfor orthostasis. Given her complaint of multiple falls with possible syncopal episode and multiple risk factors she will require more than 2 midnights of hospital stay for further work-up of an cardiac monitoring to rule out any cardiac arrhythmia. Patient will likely require penitentiary facility on discharge. Addendum Documented By: Jolanta [...] to ED approximately 1 month ago for lefthip with no acute findings. Today, shepresents for unexplained fall with head trauma, weakness, andleg pain. Head CT, Chest CT, abd/pelvis CT [...] home health nurse has expressed concern that Nina not able to adequately care for self. [...] lower left and lower right quadrants, increased abdominalgirth, normal bowel sounds BACK: No midline or [...] % (Auto) 24.8 % (.) 12/26/22 19:36 Bradley % (Auto) 10.1 % (.) 12/26/22 19:36 Eos % (Auto) 1.1 % (.) 12/26/22 19:36 Baso % (Auto) 0.5 % (.) 12/26/22 19:36 Nucleat RBC Rel Count 0.1 /100 WBC (0-0.5) 12/26/22 19:36 Neut # (Auto) 7.6 x10E3/uL (1.8-7.7) 12/26/22 19:36 Lymph # (Auto) 3.0 x10E3/uL (1.00-4.8) 12/26/22 19:36 Bradley # (Auto) 1.2 x10E3/uL (0.0-0.8) H 12/26/22 [...] on risks of current situation and lack ofcare. DVT prophylaxis: Heparain 5000u Diet: Regular Code status: Full Prognosis: fair Disposition: anticipated discharge to SNF Documented By: Jolanta Mckenzie MD 12/26/222241 Signed By: <Electronically signed by Jolanta Mckenzie MD> 12/27/2225 <Electronically signed by MD SEAN Miguelecbita Mann> 12/27/2221 [facility] Work Phone: 1(245) 612-450107-01-2022 NoteHISTORY: Bone density screening. COMPARISON: 08/03/2020 PROCEDURE: [...] signed by Edgar Hooper on 05/01/2022 1000[facility]06[facility] Evaluation note* Encounter Date Diagnosis Assessment Notes Treatment Notes Treatment Clinical Notes Mar, Major depressive dis order, recurrent severe without psychotic features (ICD-10 - F33.2) [facility] Other 03-24-2022 Evaluation note* Encounter Date Diagnosis Assessment Notes Treatment Notes Treatment Clinical Notes Dec, GERD (gastroesophageal reflux di sease) (ICD-10 - K21.9) [facility] Other Discharge summary Author Jesus Alberto Aquino [facility] December 31, 2022 3:43pmNote Date/TimeMar2022 11:57am[place] [address] Discharge Summary Signed Patient: Gera Perdue MR#: [id number] : 1945 Acct:[id number] Age/Sex: 77 / F Adm Date: 3 Loc: Room: [address] [place] [address]: Jesus Alberto Aquino MD Copies [...] the setting of pulmonary hypertension in the rightheart failure. An echocardiogram showed RV SP of 40 to 50 mmHg. This was better than the prior level. There was evidence of urinary tract infection with E. coli. Patient received treatment with ceftriaxone. No complications occurred, and patient was discharged to penitentiary facility in stable condition on December 31. [...] % (Auto) N/A, Lymph % (Auto) N/A, Bradley % (Auto) N/A, Eos % (Auto) N/A, Baso % (Auto) N/A, Nucleat RBC Rel Count N/A, Neut # (Auto) N/A, Lymph # (Auto) N/A, Bradley # (Auto) N/A, Eos # (Auto) N/A, Baso # (Auto) N/A, Lymphocytes % 8 L, Monocytes % 5, Eosinophils % 1, Basophils % 1, Segmented Neutrophils 86 H, Platelet Estimate Normal, Giant Platelets 1, Plt Morphology Comment Normal, RBC Morphology N/A, Polychromasia Slight, Hypochromasia Slight, Poikilocytosis Slight, Anisocytosis Moderate, Microcytosis Moderate, Helmet Destiny ls Slight Exam Physical Exam Vital Signs: Temp Pulse Resp BP Pulse Ox O2 Del Method O2 Flow Rate 97.5 F L 91 H 22 114/72 93 L Nasal Cannula 1.5 12/31/22 08:00 12/31/22 09:20 12/31/22 09:20 12/31/22 08:00 12/31/22 09:23 12/31/22 09:23 12/31/22 09:23 Discharge Plan Discharge Plan Patient Disposition: Half-Way Facility Activity: No Activity Restriction Diet: Regular [...] by Jesus Alberto Aquino MD> 12/31/22 1543 [facility] Work Phone: Discharge summary Author Jolanta Mckenzie [facility] July 14, 2023 11:16amNote Date/TimeSept2022 11:16[place] [id number] Discharge Summary Signed Patient: Gera Perdue MR#: [id number] : 1945 Acct:[id number] Age/Sex: 77 / F Adm Date: 3 Loc: Room: [address] [place] [address]: Jolanta Mckenzie MD Copies to: [...] medical history of coronary disease status post PCI,COPD, hypertension and other medical comorbidities. Presented to [...] and sputum culture noted. While in the hospitalpatient complained of significant abdominal pain with worsening leukocytosis. She does have prior history of abdominal surgery and stat CT abdomen/pelvis was obtained was negative for acute abnormality. Noted to have multiple ventral hernias without any signs of obstruction. Also noted to have increased colonic stool and patient did have multiple bowel movements. She denies further abdominal painwith improved breathing. Physical therapy wasconsulted with recommendation for penitentiary facility which patient is refusing understanding the [...] 9.1, BUN 24, Creatinine 1.10, Est GFR (CKD-EPI) 51.753, Glucose 84, Calcium 8.0 L 07/14/23 06:49: Corrected WBC 19.3 H, Uncorrected WBC Count 19.3 H, RBC 4.00, Hgb 10.5 L, Hct 33.6 L, MCV 84.0, MCH 26.2, MCHC 31.2 L, RDW 22.8 H, Plt Count 238, MPV 7.9, Neut % (Auto) 69.9, Lymph % (Auto) 22.1, Bradley % (Auto) 7.3, Eos % (Auto) 0.4, Baso % (Auto) 0.3, Nucleat RBC Rel Count 0.1, Neut# (Auto) 13.5 H, Lymph # (Auto) 4.3, Bradley # (Auto) 1.4 H, Eos # (Auto) [...] admin pantoprazole [Protonix] 40 mg tablet,delayed release (/EC) 40 mg PO DAILY 30 Days Qty: [...] signed by Jolanta Mckenzie MD> 07/14/[address] [facility] Work Phone: Discharge summary Author Michoacano Mckenzie [facility] February 17, 2024 4:57pmNote Date/TimeApril 2023 4:46[address] [address] Discharge Summary Signed Patient: Gera Perdue MR#: [id number] : 1945 Acct:[id number] Age/Sex: 78 / F Adm Date: 4 Loc: 3T Room: [address] [place] [address]: Michoacano Mckenzie MD Copies to: MD Gustavo FordeDO~ Providers Date of Discharge: 02/17/24 Discharging Provider: [...] be inflammatory versus infectious. C. difficile was negative.Stool culture negative. Patient was recommended Imodium. She was started on empiric antibiotic therapy for chest x- ray demonstrating mild KAY hilar airspace opacity on [...] treatment for community-acquired pneumoniaand UTI with cefdinir andazithromycin. Patient was evaluated by physical and Occupational Therapy, who recommended penitentiary placement. Patient was very adamant that she [...] signed by Michoacano Mckenzie MD> 02/17/24 1657 [facility] Work Phone: evaluation noteNo InformationNopemiscot memorial health systems [place] [employer] Other evaluation noteNo assessment information available [facility] Work Phone: evaluation note* Diagnosis Onset Date Resolution Status Accidental fall acuteHead injuryacuteInability to perform activities of daily livingacute [facility] Work Phone: evaluation note* Diagnosis Onset Date Resolution Status Accidental fall acuteAcute hip painacuteFallacuteHead injuryacuteInability to perform activities of daily livingacutePhysical deconditioningacute [facility] Work Phone: evaluation note* Diagnosis Onset Date Resolution Status Acute exacerbation of chronic obstructiv e pulmonary disease acuteCAD (coronary artery disease)acuteClosed head injuryacuteContusion of hip acuteFallacuteUmbilical herniaacuteUTI (urinary tract infection)acute [facility] Work Phone: Evaluation note* Diagnosis Onset Date Resolution Status Acute exacerbation of chronic obstructiv e pulmonary disease acuteCAD (coronary artery disease)acuteClosed head injuryacuteContusion of hip acuteFallacuteUmbilical herniaacuteUTI (urinary tract infection)acuteAcute UTI acuteAKI (acute kidney injury)acuteWeaknessacute [facility] Work Phone: Evaluation note* Diagnosis SOB (shortness of breath)- Primary Shortness of breath Wheezing Urinary tract bacterial infections Urinary tract infection, site not specified Essential hypertension (CMS/HCC) Unspecified essential hypertension Mixed hyperlipidemia (CMS/HCC) Mixed hyperlipidemia Stage 3a chronic kidney disease (HCC) ([facility]/HCC) Sepsis with acute renal failure without septic shock, due to unspecified organism, unspecified acute renal failure type (CMS/HCC) Hospital discharge follow-up Other follow-up examination Medication management Female bladder prolapse Pulmonary emphysema, unspecified emphysema type ([facility]) documented in this encounter [facility] HealthcareEvaluation note* Diagnosis Shortness of breath Coronary artery disease involving klawock coronary artery of [place] heart without angina pectoris Stage 3b chronic kidney disease ([facility]/HCC) Microcytic anemia Unspecified iron deficiency anemia History of PTCA Postsurgical percutaneous transluminal coronary angioplasty status Essential hypertension Unspecified essential hypertension Hyperlipidemia, mixed Mixed hyperlipidemia Obstructive sleep apnea syndrome Obstructive sleep apnea (adult) (pediatric) Chronic respiratory failure with hypoxia (CMS/HCC) Frequent UTI Urinary tract infection, site not specified BMI 32.0-32.9,adult Cough with expectoration Cough Current smoker documented in this encounter [facility] Work Phone: Evaluation note* Diagnosis Shortness of breath documented in this encounter [facility] Work Phone: Evaluation note* Diagnosis Shortness of breath Coronary artery disease involving k[place]ock coronary artery of [place] heart without angina pectoris History of PTCA Postsurgical percutaneous transluminal coronary angioplasty status Essential hypertension Unspecified essential hypertension Hyperlipidemia, mixed Mixed hyperlipidemia Obstructive sleep apnea syndrome Obstructive sleep apnea (adult) (pediatric) BMI 35.0-35.9,adult Current smoker Chronic hypoxemic respiratory failure (Multi) Chronic respiratory failure Encounter to discuss test results Other specified counseling documented in this encounter [facility] Work Phone: Evaluation note* Diagnosis Onset Date Resolution Status Nausea and vomiting acutePneumoniaacuteUTI (urinary tract infection)acute [facility] Work Phone: Evaluation note* Diagnosis Onset Date Resolution Status CAD (coronary artery disease) acuteGERD (gastroesophageal reflux disease)acuteNausea and vomitingacute PneumoniaacuteUTI (urinary tract infection)acuteCOPD (chronic obstructive pulmonary disease)chronic [facility] Work Phone: Evaluation note* Diagnosis Panlobular emphysema (CMS/HCC)- Primary Other emphysema Stage 3a chronic kidney disease (HCC) ([facility]/HCC) 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 (CMS/HCC) Mixed hyperlipidemia [...] tissues of limb documented in this encounter [facility] HealthcareEvaluation note* Diagnosis Stage 3a chronic kidney disease (HCC) (CMS/HCC)- Primary Interstitial pulmonary disease, unspecified (CMS/HCC) Primary osteoarthritis involving multiple joints Morbid (severe) obesity due to excess calories (E66.01) 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 (CMS/HCC) Chronic heart failure with preserved ejection fraction (CMS/HCC) Centrilobular emphysema (CMS/HCC) Neural foraminal stenosis of lumbosacral spine Failed back surgical syndrome Mixed hyperlipidemia (CMS/HCC) Mixed hyperlipidemia Acute cystitis without hematuria Anemia due to stage 3a chronic kidney disease (HCC) (CMS/HCC) documented in this encounter [facility] HealthcareEvaluation note* Diagnosis Failed back surgical syndrome Neural foraminal stenosis of lumbosacral spine documented in this encounter [facility] HealthcareEvaluation note* Diagnosis Heel spur, right- Primary Venous insufficiency Unspecified venous (peripheral) insufficiency Onychomycosis Dermatophytosis of nail Toe pain, left Pain in soft tissues of limb Toe pain, right Pain in soft tissues of limb Right Achilles tendinitis documented in this encounter [facility] HealthcareEvaluation note* Diagnosis Other specified disorders of synovium, left ankle and foot- Primary Right Achilles tendinitis Venous insufficiency Unspecified venous (peripheral) insufficiency documented in this encounter [facility] HealthcareEvaluation note* Diagnosis Chronic obstructive pulmonary disease with acute exacerbation ([facility]-HCC)- Primary Sleep apnea, unspecified type Anxiety Anxiety state, unspecified Insomnia, unspecified type Closed fracture of sixth thoracic vertebra with routine healing, unspecified fracture morphology, subsequent encounter 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 [facility] Diagnosis Chronic obstructive pulmonary disease with acute exacerbation (CMS-HCC)- Primary Pneumonia of right lower lobe due to infectious organism Gastroesophageal reflux disease without esophagitis Esophageal reflux Closed wedge compression fracture of T6 vertebra with routine healing, subsequent encounter Moderate episode of recurrent major depressive disorder ([facility]) Encephalopathy, unspecified type [facility] this [facility] Diagnosis Pneumonia of right lower lobe due to infectious organism- Primary Chronic obstructive pulmonary disease with acute exacerbation (CMS-HCC) Sleep apnea, unspecified type Moderate episode of recurrent major depressive disorder (CMS-HCC) 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 Closed wedge compression fracture of T6 vertebra with routine healing, subsequent encounter documented in this encounter [facility]* Diagnosis Hospital discharge follow-up- Primary Other follow-up examination Chronic respiratory failure with hypoxia, on home O2 therapy (CMS-[facility]) Former cigarette smoker Personal history of tobacco use, presenting hazards to health Abnormal CT of the chest Nonspecific (abnormal) findings on radiological and other examination of other intrathoracic organs Longstanding persistent atrial fibrillation (CMS-HCC) [facility]* Diagnosis Chronic obstructive pulmonary disease, unspecified COPD type ([facility]-HCC)- Primary documented in [facility] encounter [facility] System[facility] and physical note Author Jolanta Mckenzie [facility] December 27, 2022 12:32amNote Date/TimeMarch 2022 11:05pm[place] [address] Hospitalist H&P Signed with Addenda Patient: Gera Perdue MR#: [id number] : 1945 Acct:[id number] Age/Sex: 77 / F Adm Date: 3 Loc: 4N Room: 4V2973-6 Type: ADM IN Attending Dr: Jolanta Mckenzie [...] significant pain in the left hip area. Shehas been feeling dizzy for quite some time and mentioned falling frequently. She lives in a trailerwith her boyfriend appears to be a poor historian. On examination no focal motor deficit noted other than limited rangeof motion in the left lower extremity due to pain on flexion. In the ER CT head,C-spine, chest/abdomen/pelvis did not show any acute abnormality. Given her significant pain in theleft hip will obtain CT of the left hip. She does have history of hip arthroplasty. Noted to have significant swelling in both lower extremity likely from severe pulm hypertension. Given her history of pulmonary hypertension possibility of syncopal episode cannot be ruled out. Will obtain 2D echocardiogram and venous duplex. Continue her on aspirin and other home medications. Consult PT/OT. Checkfor orthostasis. Given her complaint of multiple falls with possible syncopal episode and multiple risk factors she will require more than 2 midnights of hospital stay for further work-up of an cardiac monitoring to rule out any cardiac arrhythmia. Patient will likely require penitentiary facility on discharge. Addendum Documented By: Jolanta [...] to ED approximately 1 month ago for lefthip with no acute findings. Today, shepresents for unexplained fall with head trauma, weakness, andleg pain. Head CT, Chest CT, abd/pelvis CT [...] home health nurse has expressed concern that Nina not able to adequately care for self. [...] lower left and lower right quadrants, increased abdominalgirth, normal bowel sounds BACK: No midline or [...] % (Auto) 24.8 % (.) 12/26/22 19:36 Bradley % (Auto) 10.1 % (.) 12/26/22 19:36 Eos % (Auto) 1.1 % (.) 12/26/22 19:36 Baso % (Auto) 0.5 % (.) 12/26/22 19:36 Nucleat RBC Rel Count 0.1 /100 WBC (0-0.5) 12/26/22 19:36 Neut # (Auto) 7.6 x10E3/uL (1.8-7.7) 12/26/22 19:36 Lymph # (Auto) 3.0 x10E3/uL (1.00-4.8) 12/26/22 19:36 Bradley # (Auto) 1.2 x10E3/uL (0.0-0.8) H 12/26/22 [...] on risks of current situation and lack ofcare. DVT prophylaxis: Heparain 5000u Diet: Regular Code status: Full Prognosis: fair Disposition: anticipated discharge to SNF Documented By: Jolanta Mckenzie MD 12/26/222 Signed By: <Electronically signed by Jolanta Mckenzie MD> 12/27/22 0026 <Electronically signed by MD SEAN Mann> 12/27/[address] [facility] Work Phone: History and physical note Author Jolanta Mckenzie [facility] July 10, 2023 1:50pmNote Date/TimeSeptember 2022 1:44pm[place] [address] Hospitalist H&P Signed Patient: Gera Perdue MR#: [id number] : 1945 Acct:[id number] Age/Sex: 77 / F Adm Date: 3 Loc: Room: [address] [place] [address] Type: ADM IN Attending Dr: Jolanta Mckenzie [...] saline bolus. On examination patient noted to haveactively wheezing and appears tachypneic as well. Review of Systems Review of Systems All other systems reviewed & are negative unless noted below or in HPI [facility] Medical History Arthritis COPD (chronic obstructive [...] % (Auto) 31.5 % (.) 07/10/23 08:44 Bradley % (Auto) 6.5 % (.) 07/10/23 08:44 Eos % (Auto) 0.4 % (.) 07/10/23 08:44 Baso % (Auto) 0.2 % (.) 07/10/23 08:44 Nucleat RBC Rel Count 0.1 /100 WBC (0-0.5) 07/10/23 08:44 Neut # (Auto) 13.1 x10E3/uL (1.8-7.7) H 07/10/23 08:44 Lymph # (Auto) 6.7 x10E3/uL (1.00-4.8) H 07/10/23 08:44 Bradley # (Auto) 1.4 x10E3/uL (0.0-0.8) H 07/10/23 [...] pH 8.5 (5.0-9.0) 07/10/23 08:44 Ur Specific [place] 1.022 (1.001-1.030) 07/10/23 08:44 Urine Protein 30 [...] setting as: INPATIENT because of an expectation ofan over 2 midnight stay. Estimated length of stay (# of days): 2 Documented By: Jolanta Mckenzie MD 07/10/23 1340 Signed By: <Electronically signed by Jolanta Mckenzie MD> 07/10/23 1350 [facility] Work Phone: History general Narrative - Reported* Type Description Date Medical History GERD Medical HistoryConstipationMedical HistoryHTNMedical HistoryHYPERLIPIDEMIA Medical HistoryANXIETY AND DEPRESSIONMedical HistoryCOPDMedical HistoryINSOMNIA Medical HistoryOBESITYMedical Historyallergic rhinitisMedical Historyrt. shoulder fxMedical Historylt. hip fractureSurgical HistoryStent placement in [id number] HistoryStent removal in [id number] HistoryLow back surgery X4,1993Surgical Historyhernia repair8-2011Surgical Historycolostomy for severe diverticulosis, >10cm removed. no anastamosis [facility]. Surgical HistoryEGD-2011Surgical Historycolostomy 01/07 per [facility]-2012Surgical HistoryBowel resection with reversal of [id number] Surgical HistorySKIN BIOPSY X 2 ON [id number] Historyleft IM nailing [id number] Historyleft hip FX10/2020Hospitalization History6 child births Hospitalization HistorySee AboveHospitalization HistoryKidney stones [facility] Hospitalization HistoryFell/ UTIHospitalization HistoryFR pt fell left hip fracture10/2020 [facility] Other Hospital course Narrative No data available for this section [facility] Discharge instructions Additional Instructions Use the albuterol inhaler as prescribed here COPD exacerbation take prednisone as prescribed. Take Tylenol as needed for hip pain. Follow-up with your PCP for reevaluation in 5 to 7 days.[facility] Work Phone: Hospital Discharge instructions [...] precautions Care to be managed by SNF providers[facility] Work Phone: Hospital Discharge instructionsAmbulatory [...] wraps to BLE. Change daily and prn -[facility] Work Phone: Hospital Discharge instructions [...] precautions Care to be managed by SNF providersPromedica [facility] Work Phone: Hospital Discharge instructions No data available for this section [facility] CenterInstructionsNot on filedocumented in this encounter [...] * How to Wash Your Hands Properly (Moroccan) documented in this encounterProMedica Health SystemProgress note Author Carla Hagan [facility] December 27, 2022 12:40pmNote Date/TimeMarch 2022 9:25[place] [address] Hospitalist Progress Note Signed Patient: Gera Perdue MR#: [id number] : 1945 Acct:[id number] Age/Sex: 77 / F Adm Date: 3 Loc: 4N Room: [address] [place] [address] Type: ADM IN Attending Dr: Carla Hagan MD Copies to: ~ Date of Service: 12/27/2022 Subjective Subjective Narrative: Patient reports she feels tired and weak this morning. She reports she continues to have left hip pain. She reports increased back pain and has history of chronic back pain. She reports she has had 4back surgeries in the past. She reports she has had multiple falls at home over the last few monthsand worsening weakness over the past few days. [...] well. Well-perfused. Lower extremities with moderate edema tobilateral feet and up to mid-avila. Knee brace [...] 300 Mg Tab.Er.24h PO 12/27/23 08:59 QAM [facility] Calcium Carbonate 600 mg 12/27/22 09:00 Calcium Carbonate 500 Mg Tablet PO 12/27/23 08:59 DAILY [facility] Clopidogrel Bisulfate 75 mg 12/27/22 09:00 Clopidogrel Bisulfate 75 Mg Tablet PO 12/27/23 08:59 DAILY [facility] Heparin Sodium (Porcine) 5,000 unit 12/27/22 06:00 12/27/22 06:14 Heparin 5,000 Unit/Ml Vial SUBCUT 12/27/23 05:59 5,000 unit Q8HR JERILYN Administration Hydromorphone HCl 0.5 mg 12/27/22 03:58 Hydromorphone 0.5 Mg/0.5 Ml Syringe IV-PUSH Q4H PRN Pain Scale 8 - 10 Lisinopril 5 mg 12/27/22 09:00 Lisinopril 5 Mg Tablet PO 12/27/23 08:59 DAILY [facility] Metoprolol Succinate 50 mg 12/27/22 09:00 Metoprolol Succinate 50 Mg Tab.Er.24h PO 12/27/23 08:59 DAILY [facility] Nicotine 1 each 12/27/22 00:30 12/27/22 00:48 [...] 40 Mg Tablet. PO 12/27/23 08:59 DAILY [facility] Paroxetine HCl 40 mg 12/27/22 09:00 Paroxetine 20 Mg Tablet PO 12/27/23 08:59 QAM [facility] Pregabalin 75 mg 12/27/22 09:00 Pregabalin 75 Mg Capsule PO 06/25/23 08:59 BID [facility] Sodium Chloride 0 ml 12/26/22 19:02 12/26/22 [...] 15 Gm Tube TOPICAL 12/27/23 08:59 BID [facility] Vitamin D 50 mcg 12/27/22 09:00 Cholecalciferol 25 Mcg (1,000 Units) Tablet PO 12/27/23 08:59 DAILY [facility] A&P - Hospitalist Assessment/Plan (1) Fall: (2) [...] on risks of current situation and lack ofcare. Yeast infection under the breast -Nystatin cream as needed History of tobacco use. Recent cessation. -Apply nicotine patch as needed Coronary artery disease with stent placement in 2019 -Prescribed Brilinta at home but no evidence she picked it up from the pharmacy. Continue Plavix inthe hospital. No chest pain or palpitation. No clinical evidence to suggest ACS or acute plaque rupture -Of note, patient is allergic to aspirin. Functional impairment in the debility. Multifactorial secondary to obesity, DJD, deconditioning andsedentary lifestyle. Patient may need short-term skilled versus rehabilitation Multiple other medical issues not listed above. The patient likely will requireadditional investigative and therapeutic intervention will be determined based on the clinical progression and follow-uptest result. Some of which could be done [...] any cardiac arrhythmia.? Patient will likely require penitentiary facility on discharge. Documented By: Carla Hagan MD 12/27/22 0857 Signed By: <Electronically signed by Carla Hagan MD> 12/27/22 1240 <Electronically signed by DO SEAN Armas> 12/27/[address] [facility] Work Phone: Progress note Author Carla Hagan [facility] December 28, 2022 11:14amNote Date/TimeMar2022 9:[address] [address] Hospitalist Progress Note Signed Patient: Gera Perdue MR#: [id number] : 1945 Acct:[id number] Age/Sex: 77 / F Adm Date: 3 Loc: 4N Room: [address] [place] [address] Type: ADM IN Attending Dr: Carla Hagan [...] yesterday. Powder in abdominal folds. 2-3cm Stage IIulcer with yellow base and red, erythematous borders [...] it up from the pharmacy. Continue Plavix inthe hospital. No chest pain or palpitation. No clinical evidence to suggest ACS or acute plaque rupture -Of note, patient is allergic to aspirin. Functional impairment in the debility. Multifactorial secondary to obesity, DJD, deconditioning andsedentary lifestyle. Patient may need short-term skilled versus rehabilitation Multiple other medical issues not listed above. The patient likely will requireadditional investigative and therapeutic intervention will be determined based on the clinical progression and follow-uptest result. Some of which could be done [...] any cardiac arrhythmia.? Patient will likely require penitentiary facility on discharge. Patient is medically cleared for discharge pending placement approval. The patient would likely need to have additional work-up, investigation and therapeutic intervention but will be determined based on the clinical progression and follow-up test result Documented By: Carla Hagan MD 12/28/22 0918 Signed By: <Electronically signed by Carla Hagan MD> 12/28/22 1114 <Electronically signed by DO SENA Armas> 12/28/[address] [facility] Work Phone: Progress note Author Carla Hagan [facility] December 29, 2022 10:00amNote Date/TimeMar2022 10:00[place] [address] Hospitalist Progress Note Signed Patient: Gera Perdue MR#: [id number] : 1945 Acct:[id number] Age/Sex: 77 / F Adm Date: 3 Loc: N Room: [address] [place] [address] Type: ADM IN Attending Dr: Carla Hagan MD Copies to: ~ Date of Service: 12/29/2022 Subjective Subjective Narrative: Following up on the patient. Patient is feeling better. She denies any new symptoms. Improvement ofher pain and discomfort. No headaches, loss of [...] place, time and person. Morbidly obese HEENT: [place] conjunctiva and NL buccal mucosa Neck: Supple, [...] in 2 months for hip pain following lefthip replacement. Acute problems UTI -UA positive for [...] it up from the pharmacy. Continue Plavix int hospital. No chest pain or palpitation. No clinical evidence to suggest ACS or acute plaque rupture -Of note, patient is allergic to aspirin. Functional impairment in the debility. Multifactorial secondary to obesity, DJD, deconditioning andsedentary lifestyle. Patient may need short-term skilled versus [...] signed by Carla Hagan MD> 12/29/22 1000 [facility] Work Phone: Progress note Author Carla Hagan [facility] December 30, 2022 9:53amNote Date/TimeMar2022 9:[address] [address] Hospitalist Progress Note Signed Patient: Gera Perdue MR#: [id number] : 1945 Acct:[id number] Age/Sex: 77 / F Adm Date: 3 Loc: 4N Room: 0K9348-5 Type: ADM IN Attending Dr: Carla Hagan [...] place, time and person. Morbidly obese HEENT: [place] conjunctiva and NL buccal mucosa Neck: Supple, [...] in 2 months for hip pain following lefthip replacement. Acute problems UTI -UA positive for [...] anemia Plan is to discharge patient to penitentiary unit for short period of time for [...] it up from the pharmacy. Continue Plavix inthe hospital. No chest pain or palpitation. No [...] signed by Carla Hagan MD> 12/30/22 0953 [facility] Work Phone: Progress note Author Jolanta Mckenzie [facility] July 11, 2023 12:47pmNote Date/TimeSeptember 2022 10:10[place] [address] Hospitalist Progress Note Signed with Ling Patient: Gera Perdue MR#: [id number] : 1945 Acct:[id number] Age/Sex: 77 / F Adm Date: 09/13/2 3 Loc: 3T Room: 8Z0015-5 Type: ADM IN Attending Dr: Jolanta Mckenzie [...] from prior cholecystectomy. She is somewhat of apoor historian tangential in nature unable to provide detailed ROS. She also complains of a right eyelid lag she states worsens when she rotates her head ipsilaterally. Patient needs multiple promptsto adhere to EOM exam. She deniesrecent infection, fever, chills, chest pain, headache or dizzinesshowever mentions having dysuria with increased frequency. Also [...] 1,000 Ml IV 07/09/24 13:59 75 mls/hr .[id number] JERILYN Administration Ceftriaxone Sodium 1 gm in [...] signed by Jolanta Mckenzie MD> 07/11/[address] [facility] Work Phone: Progress note Author Jolanta Mckenzie [facility] July 12, 2023 3:00pmNote Date/TimeSeptember 2022 2:16pm[place] [address] Hospitalist Progress Note Signed with Addenda Patient: Gera Perdue MR#: [id number] : 1945 Acct:[id number] Age/Sex: 77 / F Adm Date: 3 Loc: Room: [address] [place] [address] Type: ADM IN Attending Dr: Jolanta Mckenzie [...] and switch to oral prednisone. PT recommended penitentiary facility which patient is refusing [facility] Addendum Documented By: Jolanta Mckenzie MD 07/12/23 [...] 1,000 Ml IV 07/09/24 13:59 75 mls/hr .[id number] JERILYN Administration Ceftriaxone Sodium 1 gm in [...] Jolanta Mckenzie MD> 07/12/[address] [facility] Work Phone: Progress note Author Jolanta Mckenzie [facility] July 13, 2023 1:59pmNote Date/TimeSeptember 2022 10:40[place] [address] Hospitalist Progress Note Signed with Addenda Patient: Gera Perdue MR#: [id number] : 1945 Acct:[id number] Age/Sex: 77 / F Adm Date: 3 Loc: Room: [address] [place] [address] Type: ADM IN Attending Dr: Jolanta Mckenzie [...] but patient also on steroid. Discussed regarding penitentiary facility she has not decided yet. Give [...] side. Creatinine improved and will be admitted forfurther management of respiratory symptoms. Now resolved flank and abdominal pain with generalized discomfort. She is eating, drinking and voiding fine comfortable/pleasant overall. Patient is baseline tachypneic with shortness of breath on minimal exertion however saturates fine.CT abdomen pelvis with contrast showed mild bibasilar [...] no bowel or urinary tract obstruction,left renal corticalscarring, multiple ventral hernias with largest at the [...] Jolanta Mckenzie MD> 07/13/[address] [facility] Work Phone: Progress note No data available for this section [facility] [place] Reason for referral (narrative)* Consultation (Routine) - Pending ReviewSpecialtyDiagnoses / ProceduresReferred By ContactReferred To ContactPain Medicine Diagnoses Neural foraminal stenosis of lumbosacral spine Procedures IN OFFICE/OUTPATIENT NEW HIGH MDM 60 MINUTES Kiran Gutierrez NP [address] [place] [address] Prasad Ambrosio MD [address] [place] [address] Referral IDStatusReasonStart DateExpiration DateVisits RequestedVisits [id number] Review Specialty Services Required / [facility] (narrative)* Consultation (Routine) - Pending ReviewSpecialtyDiagnoses / ProceduresReferred By ContactReferred To Contact Pulmonary Medicine Diagnoses Chronic respiratory failure with hypoxia, on home O2 therapy ([facility]) Former cigarette smoker Abnormal CT of the chest Ginny Belcher APRN-CNP [address] [facility] [address] [place] [address] Varun Arroyo MD [address] [facility] [address] [place] [address] Referral IDStatusReasonStstanardsville DateExpiration DateVisits RequestedVisits [id number] Review Specialty Services Required [facility] Summary Purpose Family History Relationship Condition Age at Onset Recorded Date/T maxwell Not Specified Malignant neoplasm of bone Unknown sisterMalignant neoplasmUnknownfatherHeart problemUnknown Relationship Condition Age at Onset Recorded Date/T maxwell Not Specified Malignant neoplasm of bone Unknown sisterMalignant neoplasmUnknownfatherHeart problemUnknownbrotherHypertension UnknowndaughterHeart diseaseUnknownHypertensionUnknownDeceasedUnknownMalignant neoplasmUnknownfatherFamily history of mental disorderUnknownfamily member DeceasedUnknownNot SpecifiedDeceasedUnknownsisterHeart diseaseUnknownFamily history of coronary artery bypass graftUnknown Relationship Condition Age at Onset Recorded Date/T maxwell brother Hypertension Unknown daughterHeart diseaseUnknownHypertensionUnknownDeceasedUnknownMalignant neoplasm UnknownfatherFamily history of mental disorderUnknownHeart problemUnknownmother DeceasedUnknownMalignant neoplasm of boneUnknownsisterHeart diseaseUnknownFamily history of coronary artery bypass graftUnknown Advance Directives TypeDate RecordedPatient RepresentativeExplanationAdvance Directives and Living WillPower of AttorneyCode StatusDate ActivatedDate InactivatedCommentsFull Code 08/02/2019 12:07 AM Advance Directive Response Recorded Date/ Time Advance Directives Yes May 13 2:57pm Advance Directive Response Recorded Date/ Time Advance Directives Yes May 13 1:57pm TypeDate RecordedPatient RepresentativeExplanationDNR Physician Order10/29/2023 8:25 AMDurable Power of Attorney10/29/2023 6:51 AMDate ActivatedDate Inactivated Comments02/19/2024 6:21 PM02/25/2024 8:07 PMDate ActivatedDate InactivatedComments 10/11/2023 11:48 AM10/23/2023 1:09 PMDate ActivatedDate InactivatedComments 10/05/2023 8:00 PM10/11/2023 11:48 AMCode StatusDate ActivatedDate Inactivated CommentsDNR Comfort Care Arrest (DNR-CCA) [place]10/11/2023 11:48 AM10/23/2023 1:09 PMCode StatusDate ActivatedDate InactivatedCommentsFull Code10/05/2023 8:00 PM 10/11/2023 11:48 AMTypeDate RecordedPatient RepresentativeExplanationDNR Physician Order10/29/2023 8:25 AMDurable Power of Attorney10/29/2023 6:51 AMDate ActivatedDate InactivatedComments02/19/2024 6:21 PM02/25/2024 8:07 PMDate ActivatedDate UgiehxooelqZkmrxlje61/15/2023 11:48 AM10/23/2023 1:09 PMDate ActivatedDate MdmfjieqbfmGvppkywl09/9/2023 8:00 PM10/11/2023 11:48 AM Hospital Course * Bailey Gonzalez MD - 08/04/2019 1:39 PM EDT [facility] IN-PATIENT SERVICE [facility] Discharge Summary Patient ID: Gera Perdue : 1945 ACCOUNT: [id number] Patient's PCP: Physician Generic (Inactive) Admit Date: 08/01/2019 Discharge Date: 08/04/2019 Length of Stay: 3 Code Status: Full Code Admitting Physician: Verenice Chilel MD Discharge Physician: Bailey Gonzalez MD Active Discharge Diagnoses: Hospital Problem [...] plan and follow up. Electronically signed by Bailey Gonzalez MD 08/04/2019 1:[address] Physician Ng (Inactive) for the opportunity to be involved in this patient's care. documented in this encounter Discharge Instructions * Discharge Instr - MARGAUX* Bailey Gonzalez MD - 08/02/2019 6:16 PM EDT [...] Extended Emergency Contact Information Primary Emergency Contact: Scarlet George Relation: Grandchild Secondary Emergency Contact: Keri Huerta Relation: Child Past Surgical History: Past [...] Assisted Dressing Assisted Toileting Assisted Feeding Independent Ware Dresser Independent Med Delivery whole Wound Care [...] Time of Hospital Discharge: Respiratory Treatments: see [facility] Oxygen Therapy: is not on home oxygen [...] applicable) Name: Address: Dialysis Schedule: Phone: Fax: Flattening Press Operator/Picking Table Worker signature: {Esignature:[id number]} PHYSICIAN SECTION Prognosis: Good Condition at Discharge: [...] sent through Care Everywhere. * Low-Fiber Diet (Moroccan) documented in this encounter History of Present Illness * Bailey Gonzalez MD - 08/04/2019 10:03 AM EDT [facility] IN-PATIENT SERVICE [facility] Progress Note 08/04/2019 10:03 AM Name: Gera Perdue Acct: [id number] Room: [facility]0236-01 Day: 3 Admit Date: 08/01/2019 11:58 [...] with PT. discharge to home possible today Bailey Gonzalez MD 08/04/2019 10:03 AM * Bailey Gonzalez MD - 08/03/2019 12:24 PM EDT [facility] IN-PATIENT SERVICE [facility] Progress Note 08/03/2019 12:24 PM Name: Gera Perdue Acct: [id number] Room: [address] [place] [address] Day: 2 Admit Date: 08/01/2019 11:58 PM [...] planning - ambulate with PT. discharge tomorrow Bailey Gonzalez MD 08/03/2019 12:24 PM * Chanel [...] PROT 6.4 6.2* RADIOLOGY: No new images Solane Alston DO08/03/19, 6:30 AM Attending Note I have reviewed the above [facility] resident progress note and I either [...] 08/02/2019 9:16 AM EDT Attempted to call [facility] pharmacy in [place] to retrieve home medication list, but pharmacy does not open until 10:00 am. Banker Mason will attempt again after this time. * [...] Coronary atherosclerosis of unspecified type of vessel, [place] or graft Mixed hyperlipidemia Essential hypertension Unspecified essential hypertension Status post Aman procedure (HCC) Chief Complaint and Reason for Visit Chief Complaint COPD/Hip pain Chief Complaint HIP PAIN Chief Complaint HIP PAIN FallReason for VisitAccidental fall Head injury Inability to perform activities of daily living Chief Complaint HIP PAIN FallReason for VisitAccidental fall Acute hip pain Fall Head injury Inability to perform activities of daily living Physical deconditioning Chief Complaint rt knee swollen, sen t by dr SINGLETON Chief Complaint rt knee swollen, sen t by dr Phillips for VisitAcute exacerbation of chronic obstructive pulmonary disease CAD (coronary artery disease) Closed head injury Contusion of hip Fall Umbilical hernia UTI (urinary tract infection) Chief Complaint rt knee swollen, sen t by dr MANI garciaResamantha for VisitAcute exacerbation of chronic obstructive pulmonary disease CAD (coronary artery disease) Closed head injury Contusion of hip Fall Umbilical hernia UTI (urinary tract infection) Acute UTI ARTURO (acute kidney injury) Weakness Chief Complaint r06.02 N/VReason for VisitNausea and vomiting Pneumonia UTI (urinary tract infection) Chief Complaint r06.02 N/V N/VReason for VisitCAD (coronary artery disease) GERD (gastroesophageal reflux disease) Nausea and vomiting Pneumonia UTI (urinary tract infection) COPD (chronic obstructive pulmonary disease) Chief Complaint Admit Date Unknown December 14, 2024 6:00am Chief Complaint Admit Date Unknown December 14, 2024 6:00am Unknown February 01, 2025 12:3 5pm Reason for Referral SpecialtyDiagnoses / ProceduresReferred By ContactReferred To ContactRadiology Diagnoses Shortness of breath Procedures XR chest 2 views Jenna Engle MD [address] [place] [address] Referral IDStatusReasonStart DateExpiration DateVisits RequestedVisits [id number] Perform Procedure [id number] / ProceduresReferred By ContactReferred To Contact Diagnoses Shortness of breath Procedures ECG 12 Lead Jenna Engle MD [address] [place] [address] Referral IDStatusReasonStart DateExpiration DateVisits RequestedVisits [id number]/11/20243/11/150009ZqgovqsxuXhhdauiwq / Procedures Referred By ContactReferred To ContactCardiology Diagnoses Shortness of breath Procedures Follow Up In Cardiology Jenna Engle MD [address] [place] [address] Jenna Engle MD [address] [place] [address] Referral IDStatusReasonStstanardsville DateExpiration DateVisits RequestedVisits [id number]/11/20243/11/991692DjkgneotaVcsyjaobo / Procedures Referred By ContactReferred To [facility] CenterCard[facility] Diagnoses Shortness of breath Procedures Transthoracic Echo Complete IN ECHO TTHRC R-T 2D W/WOM-MODE COMPL SPEC&COLR D Jenna Engle MD [address] [facility] [address] [place] [address] Referral IDStatusReasonStstanardsville DateExpiration DateVisits RequestedVisits [id number] Review Perform Procedure [id number] / ProceduresReferred By ContactReferred To [facility] Diagnoses Essential hypertension (CMS/HCC) Stage 3a chronic kidney disease (HCC) (CMS/HCC) Sepsis with acute renal failure without septic shock, due to unspecified organism, unspecified acute renal failure type (CMS/HCC) Medication management Procedures IN OFFICE/OUTPATIENT NEW HIGH MDM 60 MINUTES Lilliam Cheek, NUCLEAR MEDICINE MEDICAL DIRECTOR [address] [place] [address] [facility] [address] [place] [address] Referral IDStatusasonDeerfield DateExpiration DateVisits RequestedVisits [id number] Review Specialty Services Required /[id number] / ProceduresReferred By ContactReferred To [facility] Diagnoses SOB (shortness of breath) Wheezing Urinary tract bacterial infections Essential hypertension (CMS/HCC) Mixed hyperlipidemia (CMS/HCC) Stage 3a chronic kidney disease (HCC) (CMS/HCC) Sepsis with acute renal failure without septic shock, due to unspecified organism, unspecified acute renal failure type (CMS/HCC) Medication management Lilliam Cheek, NUCLEAR MEDICINE MEDICAL DIRECTOR [address] [place] [address] Referral IDStatusReasonStart DateExpiration DateVisits RequestedVisits [id number] Review Specialty Services Required [id number] / ProceduresReferred By Contact Referred To ContactObstetrics and Gynecology Diagnoses Urinary tract bacterial infections Female bladder prolapse Procedures IN OFFICE/OUTPATIENT NEW HIGH MDM 60 MINUTES Ham Lilliam L, NUCLEAR MEDICINE MEDICAL DIRECTOR [address] [place] [address] Cee Cordero, [address] [place] [address] Referral IDStatusReasonStart DateExpiration DateVisits RequestedVisits [id number] Review Specialty Services Required Additional Source Comments INFORMATION SOURCE (unrecogn ized section and content) DATE CREATED AUTHOR 07/12/2018 [facility] DATE CREATED AUTHOR AUTHOR'S ORGANIZ ATION 08/29/2019 [facility] DATE CREATED AUTHOR AUTHOR'S ORGANIZ ATION 12/24/2020 [facility] DATE CREATED AUTHOR AUTHOR'S ORGANIZ ATION 05/01/2022 [facility] DATE CREATED AUTHOR AUTHOR'S ORGANIZ ATION 01/02/2023 [facility] DATE CREATED AUTHOR AUTHOR'S ORGANIZ ATION 01/21/2023 [facility] DATE CREATED AUTHOR AUTHOR'S ORGANIZ ATION 02/16/2024 [facility] DATE CREATED AUTHOR AUTHOR'S ORGANIZ ATION 02/26/2024 [facility] DATE CREATED AUTHOR AUTHOR'S ORGANIZ ATION 04/23/2024 [facility] DATE CREATED AUTHOR AUTHOR'S ORGANIZ ATION 05/02/2024 [facility] DATE CREATED AUTHOR AUTHOR'S ORGANIZ ATION 10/09/2024 [facility] DATE CREATED AUTHOR AUTHOR'S ORGANIZ ATION 01/24/2025 [facility] DATE CREATED AUTHOR AUTHOR'S ORGANIZ ATION 02/06/2025 [facility] DATE CREATED AUTHOR AUTHOR'S ORGANIZ ATION 02/24/2025 [facility] Reason for Visit (unrecogniz ed section and content) StatusReasonSpecialtyDiagnoses / ProceduresReferred By ContactReferred To Contact Diagnoses Small bowel obstruction (HCC) SBO Verenice Chilel MD [address] [address] [facility] ReasonCommentsHospital Follow-upReasonCommentsNew Patient VisitOld wpm patient SpecialtyDiagnoses / ProceduresReferred By ContactReferred To ContactCardiology Diagnoses Shortness of breath Procedures Transthoracic Echo Complete IN ECHO TTHRC R-T 2D W/WOM-MODE COMPL SPEC&COLR D Jenna Engle MD [address] [facility] [address] [place] [address] Referral IDStatusReasonStstanardsville DateExpiration DateVisits RequestedVisits [id number] Perform Procedure [id number]-nt1x echo resultsSpecialtyDiagnoses / ProceduresReferred By ContactReferred To ContactCardiology Diagnoses Shortness of breath Procedures Follow Up In Cardiology Jenna Engle MD [address] [address] Jenna Engle MD [address] [facility] [address] [place] [address] Referral IDStatus[facility] DateExpiration DateVisits RequestedVisits [id number] Follow-up ReasonComments1 month follow upPatient presents today for a 1 month follow up. She has a complaint of urinary frequency and burning with urination. She lost her trelegy inhaler and would like a new one. She would also like an Rx for something for her leg pain.ReasonCommentsMed RefillReasonCommentsFoot PainRt heel painReasonCommentsFollow-upRt achilles injReasonOnset DateCommentsNeuro Appt4ReasonCommentsFollow-upReasonCommentsskilled nursingPt presents today with a follow up from a penitentiary stay. Pt today states that she got home she felt bad. Pt states it feels like someone is stabbing her legs. Pt's granddaughter states that the penitentiary facility sent her home with half of her normal medicationFallPt states that she fell in Sep or Oct and she is still experiencing pain on left side of breat, down to lower back. Care Teams (unrecognized sec tion and content) Team Status: Inactive Member Role Status Dates Gustavo Salas DO Primary Care Provider Active Hilario Yeung DOEmermaritza ProviderActive Team Status: Active Member Role Status Dates Gustavo Salas DO Primary Care Provider Active Team Status: Inactive Member Role Status Dates Gustavo Salas DO Primary Care Provider Active Richard Pearson DOEmermaritza ProviderActive Team Status: Active Member Role Status Dates Maddy Morrissey PA-C Emergency Provider Active Musa Sabillon Care ProviderActiveJolanta Mckenzie MDAdmindra Provider, Attending ProviderActive Team Status: Inactive Member Role Status Dates Maddy Morrissey PA-C Emergency Provider Active Musa Sabillon Care ProviderActiveJolanta Mckenzie MDAdmindra Provider ActiveNisreen Keen ProviderActive Team Status: Inactive Member Role Status Dates Gustavo Salas DO Primary Care Provider Active Kadie Jones , CABINETMAKER SUPERVISOR-BCEmergencoleen ProviderActive Team Status: Active Member Role Status Katelyn Salas DO Primary Care Provider Active Jordy Flores ProviderActiveJolanta Mckenzie MDAdmit Provider, Attending ProviderActive Team Status: Inactive Member Role Status Dates Gustavo Salas DO Primary Care Provider Active Smooth Dominguez DOEmermaritza ProviderActiveJolanta Mckenzie MDAdmit Provider, Attending ProviderActive Team Status: Active Member Role Status Dates Maury Morrissey DO Emergency Provider Active Musa Sabillon Care ProviderActiveJesus Alberto Aquino MDAdmit Provider, Attending ProviderActive Team Status: Inactive Member Role Status Dates Maury Morrissey DO Emergency Provider Active Musa Sabillon Care ProviderActiveAndElliot Roger Provider, Attending ProviderActiveTeam MemberRelationshipSpecialtyStart DateEnd Date Gustavo Salas DO [address] [place] [address] PCP - GeneralInternal Medicine12/09/23 Leah Burgos, LASHAY [address] [place] [address] Registered NurseInternal Medicine12/09/23Team MemberRelationshipSpecialtyStart DateEnd Date Gustavo Salas DO [address] [place] [address] PCP - GeneralInternal Medicine01/06/24Team MemberRelationshipSpecialtyStart Date End Date Gustavo Salas DO [address] [place] [address] PCP - GeneralInternal Medicine01/06/24Team MemberRelationshipSpecialtyStart Date End Date Gustavo Salas DO [address] [place] [address] PCP - GeneralInternal Medicine01/06/24 Team Status: Inactive Member Role Status Dates Gustavo Salas DO Primary Care Provider Active Start: January 06, 2024 End: January 06, 2024Nisreen Ewing ProviderActiveStart: January 06, 2024 End: January 06, 2024 Team Status: Active Member Role Status Dates Gustavo Salas DO Primary Care Provider Active Start: February 14, 2024 MATILDA Greenwood-BCEmergencoleen ProviderActiveStart: February 14, 2024 Elliot Esparza Provider, Attending ProviderActiveStart: February 14, 2024 Team Status: Inactive Member Role Status Dates Gustavo Salas DO Primary Care Provider Active Start: February 14, 2024 End: February 17, 2024Kadie Jones CABINETMAKER SUPERVISOR-BCEmergencoleen ProviderActiveStart: February 14, 2024 End: February 17, 2024Lucho Grullon MDAdmit ProviderActiveStart: February 14, 2024 End: February 17, 2024Michoacano Mckenzie MDAttending ProviderActiveStart: February 14, 2024 End: February 17, 2024 Team Status: Active Member Role Status Dates Gustavo Salas DO Primary Care Provider Active Start: February 14, 2024 Kadie Jones CABINETMAKER SUPERVISOR-BCEmergency ProviderActiveStart: February 14, 2024 Lucho Grullon MDAdmindra Provider, Attending Provider, Other ProviderActive Start: February 14, 2024 Team MemberRelationshipSpecialtyStart DateEnd Date Gustavo Salas DO [address] [place] [address] PCP - GeneralInternal Medicine12/09/23 Gustavo Salas DO [address] [place] [address] PCP - [facility]/Team MemberRelationshipSpecialtyStart DateEnd Date Gustavo Salas DO [address] [place] [address] PCP - GeneralInternal Medicine12/09/23 Gustavo Salas DO [address] [place] [address] PCP - [facility]/Team MemberRelationshipSpecialtyStart DateEnd Date Gustavo Salas DO [address] [place] [address] PCP - GeneralInternal Medicine12/09/23 Gustavo Salas DO [address] [place] [address] PCP - C6/Team MemberRelationshipSpecialtyStart DateEnd Date Gustavo Salas DO [address] [place] [address] PCP - GeneralInternal Medicine12/09/23 Gustavo Salas DO [address] [place] [address] PCP - [facility]/Team MemberRelationshipSpecialtyStart DateEnd Date Gustavo Salas DO [address] [place] [address] PCP - GeneralInternal Medicine12/09/23Team MemberRelationshipSpecialtyStart Date End Date Gustavo Salas DO [address] [place] [address] PCP - GeneralInternal Medicine12/09/23Team MemberRelationshipSpecialtyStart Date End Date Gustavo Salas DO [address] [place] [address] PCP - GeneralInternal Medicine12/09/23Team MemberRelationshipSpecialtyStart Date End Date Gustavo Salas DO [address] [place] [address] PCP - GeneralInternal Medicine12/09/23Team MemberRelationshipSpecialtyStart Date End Date Gustavo Salas DO [address] [place] [address] PCP - GeneralInternal Medicine12/09/23 Gustavo Salas DO [address] [place] [address] PCP - C6/10/2411Team MemberRelationshipSpecialtyStart DateEnd Date Gustavo Salas DO [address] [place] [address] PCP - GeneralInternal Medicine12/09/23Team MemberRelationshipSpecialtyStart Date End Date Gustavo Salas DO [address] [place] [address] PCP - GeneralInternal Medicine12/09/23Team MemberRelationshipSpecialtyStart Date End Date Gustavo Salas DO [address] [place] [address] PCP - GeneralInternal Medicine02/19/24Team MemberRelationshipSpecialtyStart Date End Date Gustavo Salas DO [address] [place] [address] PCP - GeneralInternal Medicine02/19/24Team MemberRelationshipSpecialtyStart Date End Date Mely Camarillo APRN-CNP [address] [facility] [place] [address] PCP - GeneralFamily Medicine04/08/19Team MemberRelationshipSpecialtyStart DateEnd Date Mely Camarillo APRN-[employer]EM[employer] [address] [facility] [place] [address] [facility] - [facility]04/08/19Team MemberRelationshipSpecialtyStart DateEnd Date Mely Camarillo APRN-[employer]EMAN [address] [facility] [place] [address] PCP - GeneralFamily Medicine04/08/19Team MemberRelationshipSpecialtyStart DateEnd Date Gustavo Salas DO [address] [facility] [address] [place] [address] PCP - GeneralInternal Medicine12/09/23Team MemberRelationshipSpecialtyStart Date End Date Gustavo Salas DO [address] [facility], [address] [place] [address] PCP - GeneralInternal Medicine02/19/24 Team Status: Active Member Role Status Dates Gustavo Salas DO Primary Care Provider Active Start: September 20, 2024 End: September 23Elizabeth Ibarra ProviderActiveStart: September 20, 2024 End: September 23, 2024Jose Alberto Miner ProviderActiveStart: September 20, 2024 End: September 23, 2024 Team Status: Active Member Role Status Dates Gustavo Salas DO Primary Care Provider Active Start: October 13, 2024 End: October 15enjamin Ball , DOAttending ProviderActiveStart: October 13, 2024 End: October 15, 2024HOSSEIN Prietoeferring ProviderActiveStart: October 13, 2024 End: October 15, 2024 Team Status: Inactive Member Role Status Dates Gustavo Hogan DO Attending Provider Active S tart: December 14, 2024 End: December 14, 2024Team MemberRelationshipSpecialtyStart DateEnd Date Gustavo Salas DO [address] [place] [address] PCP - GeneralInternal Medicine12/09/23Team MemberRelationshipSpecialtyStart Date End Date Gustavo Salas DO [address] [place] [address] PCP - GeneralInternal Medicine12/09/23Team MemberRelationshipSpecialtyStart Date End Date Gustavo Salas DO [address] [place] [address] PCP - GeneralInternal Medicine12/09/23Team MemberRelationshipSpecialtyStart Date End Date Gustavo Salas DO [address] [place] [address] PCP - GeneralInternal Medicine12/09/23Team MemberRelationshipSpecialtyStart Date End Date Gustavo Salas DO [address] [place] [address] PCP - GeneralInternal Medicine12/09/23 Team Status: Active Member Role Status Dates Alexi Macias DO Attending Provider Active Sta rt: December 07, 2024 Team Status: Active Member Role Status Dates Alexi Macias DO Attending Provider Active Sta rt: December 18, 2024 Team Status: Inactive Member Role Status Dates Gustavoed Candelario DO Attending Provider Active Start : February 01, 2025 End: February 01, 2025Team MemberRelationshipSpecialtyStart DateEnd Date Macario Salased Person DO [address] [facility] [address] [place] [address] PCP - GeneralInternal Medicine12/09/23 MaritzaGustavo DO [address] [facility] [address] [place] [address] PCP - 03/28/24 Leah Burgos RN [address] [facility] [address] Registered NurseInternal Medicine Goals (unrecognized section and content) Goals may [...] BE BASED ON THE PRIMARY CLINICAL RECORDS. [employer] provides no warranty or guarantee of the accuracy or completeness of information in this document.
[2025-09-13 14:48] LABS: Glucose Urine UA NEGATIVE (NEGATIVE)
[2025-09-13 15:00] LABS: Cast Seen? SEEN #/LPF (NONE SEEN); Crystals Seen? None Seen #/HPF (None Seen)
[2025-09-13 15:01] LABS: Urine Culture Indicated YES-FRMC
== END 2025-09-13 13:56 | disposition home or self-care (01) ==
LOC: LAB 13:55
PROVIDERS: PCP Internal Medicine
DX: R41.0 Disorientation, unspecified (principal)
CPT/HCPCS: 81001; 87086; 87088; 87186